=== PATIENT | female | born 1985 | race Caucasian/White ===

== ENCOUNTER 2016-06-24 09:44 | Emergency (ER) | payer MEDICARE, MEDICAID ==
[~2016-06-24] VITALS: Ht 157.5 cm; Wt 106.6 kg
[~2016-06-24 09:44] MED LIST: ACHD5005 PO; ALBU17AE3 INH; AMIT50TA3 PO; ARIP15TA PO; ARIP20TA PO; ASP81TEC PO; ASPI325T32 PO; BCP; BENADRYL; BIRTH CONTORL; BSP5T PO; BUPR150T7; BUPR300T51; BUTA-234 PO; BUTA1TAB46 PO; CEFP500T4 PO; CEPH500C PO; CETI-156 PO; CETI10TA17 PO; CHOL2000 PO; CIPR500T78 PO; CLIN150C17 PO; CLIN300C3 PO; CLN150C PO; CPR500T PO; CREON PO; CYCL10TA9 PO; DIPH25CA79 PO; DIPH50CA PO; DIPH50CA44 PO; DOCU100T7; DULO30CA; DULO30CA PO; ENAL20TA PO; ESTR1TAB24 PO; ESTR1TAB27 PO; ESTR2TAB PO; ESTR42.52 VG; ESTR50GE TD; FAMO-119 PO; FAMO20TA5 PO; FLUO10CA19 PO; FLUO20CA25 PO; FLUO20TA28 PO; FLUO40CA PO; FLUO40CA12 PO; HYDR-2856 PO; HYDR-34 PO; HYDR-3583 PO; HYDR-3729 PO; HYDR-3812 PO; HYDR-3816 PO; HYDR-3857 PO; HYDR-700 PO; HYDR-707 PO; HYDR1CAP2 PO; HYDR1TAB PO; HYDR25CA92 GT; HYOS0.1216 PO; IBP800T PO; IBUP-1780 PO; IBUP800T26 PO; IBUPROFEN; LEVO500T69 PO; LIPA1CAP2 PO; LIPA1CAP70 PO; MECL-124 PO; METO-354 PO; METO25TA4 PO; METR500T21 PO; MIRT15TA6 PO; MTF500T PO; NAPR-243 PO; NAPR-689 PO; NECON PO; NF-ESOM40C PO; NITR-65 PO; NITR100C3 PO; OMEP40CA36 PO; ONDA8TAB13 PO; ONDA8TAB9 PO; ONDAN4ODT PO; ONDN4T PO; OXYC-109 PO; OXYC-309 PO; PANT20TA2 PO; PARO20TA57 PO; PHEN100T26 PO; PHEN200T27 PO; PHEN37.555 PO; PRAV40TA; PRAV40TA2 PO; PRAZ2CAP2; PRAZ2CAP2 PO; PRM25T PO; PROM25SU10 PR; ROPI0.256 PO; ROPI2TAB4; ROPI2TAB4 PO; SCOP1PAT TD; SERT50TA PO; SIMV5TAB6 PO; SPIR100T28 PO; SRTR100T PO; SULF1TAB35 PO; SULF1TAB38 PO; TIZA2CAP9 PO; TIZA4CAP6 PO; TRAM-21 PO; TRAM50TA2 PO; TRAZ150T42; TRAZ150T42 PO; TRM50T PO; VICODIN; VORT10TA PO; ZIPR60CA6; ZOVIA; [UNRECOGNIZED DRUG - OTHER]; [UNRECOGNIZED DRUG - OTHER] PO; [UNRECOGNIZED DRUG - OTHER] PO; birth control pill; thyroid medication PO
--- OUTSIDE RECORDS SUMMARY | 2016-06-24 09:50 | XMS REPORT | Continuity of Care Document ---
Author Author [facility] Organization [facility] Address Unknown Phone Unavailable Care Team Providers Care Service Cashier Name Role Phone Mary Whittington PCP [phone] Source Comments Some departments are not documenting in the electronic medical record. If you do not see the information that you expected, contact Release of Information in the Health Information Management department at [phone] for further assistance in locating additional records.[facility] Active Allergies and Adverse Reactions Allergen Noted Date Severity Reactions Comments Demerol (Pf) 09/20/2011 UNKNOWN Fentanyl 09/20/2011 UNKNOWN Penicillins 09/20/2011 UNKNOWN Current Medications Prescription Sig. Disp. Refills Start End Date Status Date hydrocodone-acetaminophen Take 1 Tab by mouth at Active (NORCO) 5-325 mg per bedtime daily. tablet rOPINIRole (REQUIP) 2 mg Take 2 mg by mouth at Active tablet bedtime daily. vortioxetine (BRINTELLIX) Take 10 mg by mouth Active 10 mg tab daily. DIPHENHYDRAMINE HCL Take by mouth as Needed. Active (BENADRYL ALLERGY PO) pravastatin (PRAVACHOL) Take 40 mg by mouth Active 40 mg tablet daily. estradiol (ESTRACE) 1 mg Take 1 mg by mouth daily. Active tablet busPIRone (BUSPAR) 5 mg Take 5 mg by mouth three Active tablet times daily. scopolamine Apply 1 Patch to top of 30 Patch 1 11/26/19 Active (TRANSDERM-SCOP) 1.5 mg skin as directed every 72 15 patch hours. Do not use more than one patch in 72 hours. ondansetron (ZOFRAN) 4 mg Take 1 Tab by mouth three 60 Tab 1 01/21/20 Active tablet times daily as needed for 15 Nausea. gaoata-rcmbmpxy-jrovqvz Take 80,000 Units by 240 Cap 6 02/01/20 Active (ZENPEP) 40,000-136,000- mouth three times daily 15 218,000 unit cpDR with meals. (take 2 caps with meals, 1 cap with snacks. prazosin (MINIPRESS) 2 mg Take 2 mg by mouth at Active capsule bedtime daily. ibuprofen (MOTRIN) 800 mg Take 800 mg by mouth Active tablet every 6 hours as needed for Pain. VIT Take by mouth. Active W-CA,FE,FA(<1 MG) ( VITAMIN PO) other medication 1 Dose daily. Active Indications: One Source hair and nail vitamin omeprazole DR(+) Take 1 Cap by mouth 90 Cap 1 02/04/20 Active (PRILOSEC) 40 mg capsule daily. Take 30 minutes 15 before morning meal. traMADol (ULTRAM) 50 mg Take 1 Tab by mouth twice 60 Tab 1 07/18/19 Active tablet daily. 16 ondansetron (ZOFRAN ODT) Take 1 Tab by mouth every 60 Tab 0 09/14/19 Active 8 mg rapid dissolve 8 hours as needed for 16 tablet Nausea. Needs GI office visit for any additional refills. Active Problems Problem Noted Date 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 06/24/2013 Overview: S/P HOLLAND, BSO 11/27 Depression 06/24/2013 S/P cholecystectomy 06/24/2013 Overview: 2007 S/P appendectomy 06/24/2013 Overview: November 2012 Pancreatitis 10/23/2011 Social History Tobacco Use Types Packs/Day Years Used Date Never Smoker Alcohol Use Drinks/Week oz/Week Comments Yes Does not consume alcohol in excess. Last Filed Vital Signs Vital Sign Reading Time Taken Blood Pressure 113/74 02/03/2015 3:19 PM CDT Pulse 71 02/03/2015 3:19 PM CDT Temperature 36.2 C (97.1 F) 02/03/2015 3:19 PM CDT Respiratory Rate 17 08/26/2014 10:12 AM CDT Height 1.575 m (5' 2") 02/03/2015 3:19 PM CDT Weight 112.22 kg (247 lb 6.4 oz) 02/03/2015 3:19 PM CDT Body Mass Index 45.24 02/03/2015 3:19 PM CDT Oxygen Saturation - - Plan of Care Health Maintenance Due Date Last Done Comments Physical (Comprehensive) 1991 Exam Pertussis Vaccine 1995 Tetanus Vaccine 2001 Cervical Cancer Screening 2005 Influenza Vaccine 02/16/2016 Results from Last 3 Months Not on file
--- NOTE | 2016-06-24 10:52 | ED Cough/URI ---
General Chief Complaint: Cough/Cold/Flu Symptoms Stated Complaint: SORE THROAT/COUGH/GREEN SPUTUM/DIZZY Nursing Triage Note: PT C/O COUGH/CONGESTION X 3 WEEKS. Source: patient Exam Limitations: no limitations History of Present Illness Time seen by provider: 10:47 Initial Comments This is a 31-year-old asthmatic female presents with complaint of persistent cough for last 3 weeks. Patient has tried steroids with some improvement briefly. She was told to discontinue her albuterol nebulized treatments. The patient is currently not taking an antibiotic. Patient denies fever or chill, productive cough, headache or stiff neck, or history of recurrent pneumonia in the past. Allergies and Home Medications Allergies Coded Allergies: fentanyl (Verified Allergy, Unknown, 05/23/16) meperidine (Verified Allergy, Unknown, 05/23/16) penicillin G (Verified Allergy, Unknown, 05/23/16) Home Medications Diphenhydramine HCl 25 Mg Capsule 25-50 MG PO Q6H PRN PRN ALLERGIES (Reported) Estradiol 2 Mg Tablet 3 MG PO HS (Reported) TAKES 1 & 1/2 (2MG) TABLETS Fluoxetine HCl 20 Mg Capsule 60 MG PO HS (Reported) TAKES 3 (20MG) CAPSULES Hydrocodone/Acetaminophen 1 Each Tablet #30 1-2 EACH PO Q4H Prescribed by: JOHN PATTON on 05/30/16 0927 Ibuprofen 800 Mg Tablet 800 MG PO Q8H PRN PRN PAIN (Reported) Ondansetron 8 Mg Tab.rapdis 8 MG PO Q8H PRN PRN NAUSEA (Reported) Ropinirole HCl 2 Mg Tablet 2 MG PO HS (Reported) Constitutional: No chills, No fever EENTM: throat painNo ear pain Respiratory: see HPI cough Cardiovascular: No chest pain Gastrointestinal: No constipation, No diarrhea, No vomiting Genitourinary: No dysuria, No frequency Musculoskeletal: No back pain Skin: No rash Psychiatric/Neurological: No Symptoms Reported Hematologic/Lymphatic: No Symptoms Reported Past Mefyxjl-Mevsnw-Ejlnhp Hx Patient Social History Alcohol Use: Denies Use Recreational Drug Use: No Smoking Status: Never a Smoker Recent Foreign Travel: No Contact w/Someone Who Travel: No Recent Infectious Disease Expo: No Recent Hopitalizations: Yes (DECEMBER 2015-[facility]APH INFECTION) Physical Abuse Screen: No Sexual Abuse: No Immunizations Up To Date Tetanus Booster (TDap): Unknown Date of Pneumonia Vaccine: May 17, 2012 Date of Influenza Vaccine: Jul 03, 2012 Seasonal Allergies Seasonal Allergies: Yes (MILD) Surgeries HX Surgeries: Yes (R KNEE SCOPE X4 L X2, NASAL FX, EGD/COLONOSCOPY, COCCYX REMOVAL,) Surgeries: Abdominal, Appendectomy, Gallbladder, 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, Orthopedic, Tonsillectomy Respiratory Hx Respiratory Disorders: Yes (HASNT USED INHALER IN 4YRS) Respiratory Disorders: Asthma Cardiovascular Hx Cardiac Disorders: No Neurological Hx Neurological Disorders: Yes (restless leg syndrome) Neurological Disorders: Headaches /Migraines 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 System Hx 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: Yes (HX ENDOMETRIOSIS ) Sexually Transmitted Disease: No HIV/AIDS: No 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, 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 Genitourinary Hx Genitourinary Disorders: Yes Genitourinary Disorders: UTI-Chronic Gastrointestinal Hx Gastrointestinal Disorders: Yes (ENLARGED LIVER) Gastrointestinal Disorders: Pancreatitis, Polyps Musculoskeletal Hx Musculoskeletal Disorders: Yes (COCCYX-REPAIRED, MAY HAVE SIGNS OF ARTHRITIS ) Musculoskeletal Disorders: Chronic Back Pain Endocrine Hx Endocrine Disorders: No HEENT HX ENT Disorders: No Loss of Vision: Denies Hearing Impairment: Denies Cancer Hx Cancer: No Psychosocial Hx Psychiatric Problems: Yes Behavioral Health Disorders: Anxiety, Depression Integumentary HX Skin/Integumentary Disorder: Yes (RASH ON BACK) Skin/Integumentary Disorders: Herpes Blood Transfusions Hx Blood Disorders: No Adverse Reaction to a Blood Tr: No Reviewed Nursing Assessment Reviewed/Agree w Nursing PMH: Yes Family Medical History Significant Family History: Cancer, Diabetes, Hypertension Family Medial History: Cardiovascular disease 19 FATHER Completed stroke 19 FATHER Diabetes mellitus 19 FATHER Hypercholesterolemia 19 FATHER 19 MOTHER Hypertension 19 FATHER 19 MOTHER Neoplasm 19 MOTHER Psychosocial problem 19 FATHER 19 MOTHER Physical Exam Vital Signs Vital Sign - Last 12Hours Capillary Refill : Less Than 3 Seconds General Appearance: WD/WN Eyes: Bilateral Eye Normal Inspection HEENT: normal ENT inspection Neck: full range of motion supple normal inspection Respiratory: lungs clear normal breath sounds other (there was a persistent nonproductive cough noted on exam) Cardiovascular: regular rate, rhythm no murmur Gastrointestinal: normal bowel sounds non tender soft Extremities: normal inspection Neurologic/Psychiatric: no motor/sensory deficits alert normal mood/affect Skin: normal color warm/dry Progress/Results/Core Measures Results/Orders Lab Results Laboratory Tests Test 06/24/16 10:33 Range/Units Group A Streptococcus Screen NEGATIVE NEGATIVE My Orders Orders-ADRIÁN PARKS MD Rapid Strep A Screen (06/24/16 10:29) Vital Signs/I&O Vital Sign - Last 12Hours 06/24/16 06/24/16 09:55 09:55 Temp 98.9 Pulse 95 Resp 20 B/P 124/74 Pulse Ox 97 O2 Delivery Room Air Room Air Blood Pressure Mean: 91 Progress Note : Time: 10:52 Progress Note The patient's strep screen was negative. We discussed treatment for outpatient which will include Tussionex, prednisone, resumption of her albuterol nebulized treatments at home, and a Z-[place]. I asked that the patient follow up with her caregiver trace tomorrow and to return to the emergency department she had any further problems or questions. Departure Impression Impression: Primary Impression: Upper respiratory infection Qualified Code: J06.9 - Acute upper respiratory infection, unspecified Disposition: HOME, SELF-CARE Condition: Unchanged Departure-Patient Inst. Decision time for Depature: 10:55 Referrals: CARMEN GIBBS MD (PCP/Family) Primary Care Physician Patient Instructions: Acute Bronchitis, Adult (DC) Add. Discharge Instructions: Tussionex, Zithromax, prednisone, and albuterol nebulized treatments at home. Close follow-up with her caregiver choice tomorrow. Return of any problems. All discharge instructions reviewed with patient and/or family. Voiced understanding. ADRIÁN PARKS MD Jun 24, 2016 10:52
[2016-06-24 11:03] VITALS: BP 124/74
[2016-10-26] MEDS ORDERED: CIPR500T4 PO (14:33)
[2016-10-26] MEDS ORDERED: METR500T21 PO (14:33)
== END 2016-06-24 11:04 | disposition home or self-care (01) ==
LOC: EDUNIT# 09:44 → ER 09:45
DX: J06.9 Acute upper respiratory infection, unspecified (principal)
CPT/HCPCS: 87430; 99283

== ENCOUNTER 2016-08-05 10:58 | Emergency (ER) | payer MEDICARE, MEDICAID ==
[~2016-08-05] VITALS: Ht 157.5 cm; Wt 104.3 kg
--- OUTSIDE RECORDS SUMMARY | 2016-08-05 11:05 | XMS REPORT | Continuity of Care Document ---
Author Author [facility] Organization [facility] Address Unknown Phone Unavailable Care Team Providers Care Pool Hand Name Role Phone Mary Whittington PCP [phone] Source Comments Some departments are not documenting in the electronic medical record. If you do not see the information that you expected, contact Release of Information in the Health Information Management department at [phone] for further assistance in locating additional records.[facility] Active Allergies and Adverse Reactions Allergen Noted [...] times daily as needed for 15 Nausea. exzfpu-hlqbnsap-woowbwv Take 80,000 Units by 240 Cap 6 [...] Active tablet daily. 16 ondansetron (ZOFRAN ODT) DISSOLVE ONE TABLET IN 60 Tab 0 08/01/19 Active 8 mg rapid dissolve MOUTH EVERY 8 HOURS 17 tablet NEEDED FOR NAUSEA, NEED GI OFFICE VISIT FOR ANY ADDITIONAL REFILLS ondansetron (ZOFRAN ODT) Take 1 Tab by mouth every 60 Tab 0 09/13/20 07/31/19 Discontin 8 mg rapid dissolve 8 hours as needed for 16 17 ued tablet Nausea. Needs GI office visit for any additional refills. Active Problems Problem Noted Date 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 06/24/2013 Overview: S/P FREDI LINO 11/27 Depression 06/24/2013 S/P cholecystectomy 06/24/2013 Overview: 2007 S/P appendectomy 06/24/2013 Overview: November 2012 Pancreatitis 10/23/2011 Most Recent Encounters Date Type Specialty Providers Description 07/31/2016 Refill Gastroenterology Jessica Valera ARNP Social History Tobacco Use Types Packs/Day Years [...]
--- NOTE | 2016-08-05 11:33 | ED Abdominal Pain ---
General Chief Complaint: Abdominal/GI Problems Stated Complaint: ABD PAIN TO BACK Nursing Triage Note: PT TO ED 5 W/ C/O UPPER ABD PAIN ONSET YESTERDAY, WORSE TODAY. ALSO C/O N/V. REPORTS "PANCREAS PROBLEMS". Sepsis Screen: No Definite Risk Source of Information: Patient Exam Limitations: No Limitations History of Present Illness Time Seen By Provider: 11:33 Initial Comments 31-year-old female patient presents to the emergency department complains of upper abdominal pain, nausea, and vomiting beginning yesterday. Patient states she has a history of pancreatitis and thinks this is causing her symptoms. Timing/Duration: 12-24 Hours, Constant Severity/Quality: Aching Location: Other (generalized upper abdomen) Radiation: Back Activities at Onset: None Modifying Factors: Worsens With Eating, Worsens With Palpation Allergies and Home Medications Allergies Coded Allergies: fentanyl (Verified Allergy, Unknown, 05/23/16) meperidine (Verified Allergy, Unknown, 05/23/16) penicillin G (Verified Allergy, Unknown, 05/23/16) Home Medications Diphenhydramine HCl 25 Mg Capsule 25-50 MG PO Q6H PRN PRN ALLERGIES (Reported) Estradiol 2 Mg Tablet 3 MG PO HS (Reported) TAKES 1 & 1/2 (2MG) TABLETS Fluoxetine HCl 20 Mg Capsule 60 MG PO HS (Reported) TAKES 3 (20MG) CAPSULES Hydrocodone/Acetaminophen 1 Each Tablet #30 1-2 EACH PO Q4H Prescribed by: JOHN PATTON on 05/30/16 0927 Ibuprofen 800 Mg Tablet 800 MG PO Q8H PRN PRN PAIN (Reported) Ondansetron 8 Mg Tab.rapdis 8 MG PO Q8H PRN PRN NAUSEA (Reported) Promethazine HCl 25 Mg Tablet #10 25 MG PO Q6H PRN PRN NAUSEA/VOMITING Prescribed by: KIARA CALVERT on 08/05/16 1342 Ropinirole HCl 2 Mg Tablet 2 MG PO HS (Reported) Review of Systems Constitutional: No chills, No diaphoresis, No dizziness, No fever, malaise EENTM: No Symptoms Reported Respiratory: Denies Cough, Denies Shortness of Air Cardiovascular: Denies Chest Pain, Denies Lightheadedness, Denies Palpitations Gastrointestinal: See HPIDenies Abdomen Distended, Abdominal PainDenies Blood Streaked Stools, Denies Constipated, Denies Diarrhea, Denies Difficulty Swallowing, Nausea Poor Appetite Poor Fluid IntakeDenies Rectal Bleeding, Vomiting Genitourinary: Denies Burning, Denies Discharge, Denies Frequency, Denies Hematuria, Denies Pain Musculoskeletal: see HPI back pain Skin: no symptoms reported Psychiatric/Neurological: No Symptoms Reported All Other Systems Reviewed Negative Unless Noted: Yes (Negative excepted noted.) Past Wruhtzh-Axqqga-Aqznzy Hx Patient Social History Alcohol Use: Denies Use Recreational Drug Use: No Smoking Status: Never a Smoker Recent Foreign Travel: No Contact w/Someone Who Travel: No Recent Infectious Disease Expo: No Recent Hopitalizations: Yes (DECEMBER 2015-[facility] INFECTION) Immunizations Up To Date Tetanus Booster (TDap): Unknown Date of Pneumonia Vaccine: May 17, 2012 Date of Influenza Vaccine: Jul 03, 2012 Seasonal Allergies Seasonal Allergies: Yes (MILD) Surgeries HX Surgeries: Yes (R KNEE SCOPE X4 L X2, NASAL FX, EGD/COLONOSCOPY, COCCYX REMOVAL,) Surgeries: Abdominal, Adenoidectomy, Appendectomy, Gallbladder, 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, Orthopedic, Tonsillectomy Respiratory Hx Respiratory Disorders: Yes (HASNT USED INHALER IN 4YRS) Respiratory Disorders: Asthma Cardiovascular Hx Cardiac Disorders: No Neurological Hx Neurological Disorders: Yes (restless leg syndrome) Neurological Disorders: Headaches /Migraines 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 System Hx 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: Yes (HX ENDOMETRIOSIS ) Sexually Transmitted Disease: No HIV/AIDS: No 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, 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 Genitourinary Hx Genitourinary Disorders: Yes Genitourinary Disorders: UTI-Chronic Gastrointestinal Hx Gastrointestinal Disorders: Yes (ENLARGED LIVER) Gastrointestinal Disorders: Pancreatitis, Polyps Musculoskeletal Hx Musculoskeletal Disorders: Yes (COCCYX-REPAIRED, MAY HAVE SIGNS OF ARTHRITIS ) Musculoskeletal Disorders: Chronic Back Pain Endocrine Hx Endocrine Disorders: No HEENT HX ENT Disorders: No Loss of Vision: Denies Hearing Impairment: Denies Cancer Hx Cancer: No Psychosocial Hx Psychiatric Problems: Yes Behavioral Health Disorders: Anxiety, Depression Integumentary HX Skin/Integumentary Disorder: Yes (RASH ON BACK) Skin/Integumentary Disorders: Herpes Blood Transfusions Hx Blood Disorders: No Adverse Reaction to a Blood Tr: No Reviewed Nursing Assessment Reviewed/Agree w Nursing PMH: Yes Family Medical History Significant Family History: Cancer, Diabetes, Hypertension Family Medial History: Cardiovascular disease 19 FATHER Completed stroke 19 FATHER Diabetes mellitus 19 FATHER Hypercholesterolemia 19 FATHER 19 MOTHER Hypertension 19 FATHER 19 MOTHER Neoplasm 19 MOTHER Psychosocial problem 19 FATHER 19 MOTHER Physical Exam Vital Signs VS - Last 72 Hours, by Label 08/05/16 08/05/16 11:05 14:43 Temp 97.2 Pulse 80 75 Resp 18 20 B/P 147/87 Pulse Ox 99 99 O2 Delivery Room Air Capillary Refill : Less Than 3 Seconds General Appearance: WD/WN no apparent distress obese HEENT: PERRL/EOMI pharynx normal Neck: supple normal inspection Respiratory: lungs clear normal breath sounds no respiratory distress Cardiovascular: normal peripheral pulses regular rate, rhythm no edema no murmur Gastrointestinal: normal bowel sounds soft no organomegalyNo distended, guarding (generalized upper abdominal guarding)No rebound, tenderness ( generalized upper abdominal tenderness.) Extremities: no pedal edema normal capillary refill Back: normal inspection no CVA tenderness Neurologic/Psychiatric: alert oriented x 3 depressed affect Skin: normal color warm/dry Progress/Results/Core Measures Results/Orders Lab Results Laboratory Tests Test 08/05/16 12:40 08/05/16 13:15 Range/Units Alanine Aminotransferase (ALT/SGPT) 14 0-55 U/L Albumin 3.8 3.2-4.5 G/DL Alkaline Phosphatase 61 40-136 U/L Anion Gap 10 5-14 MMOL/L Aspartate Amino Transf (AST/SGOT) 20 5-34 U/L BUN/Creatinine Ratio 15 Basophils # (Auto) 0.0 0.0-0.1 10^3/uL Basophils (%) (Auto) 0 0-10 % Blood Urea Nitrogen 11 7-18 MG/DL C-Reactive Protein High Sensitivity 1.68 H 0.00-0.50 MG/DL Calcium Level 9.1 8.5-10.1 MG/DL Carbon Dioxide Level 25 21-32 MMOL/L Chloride Level 105 98-107 MMOL/L Creatinine 0.75 0.60-1.30 MG/DL Eosinophils # (Auto) 0.2 0.0-0.3 10^3/uL Eosinophils (%) (Auto) 2 0-10 % Estimat Glomerular Filtration Rate > 60 Glucose Level 83 70-105 MG/DL Hematocrit 38 35-52 % Hemoglobin 12.8 11.5-16.0 G/DL Lipase 26 8-78 U/L Lymphocytes # (Auto) 2.9 1.0-4.0 X 10^3 Lymphocytes (%) (Auto) 30 12-44 % Mean Corpuscular Hemoglobin 28 25-34 PG Mean Corpuscular Hemoglobin Concent 33 32-36 G/DL Mean Corpuscular Volume 85 80-99 FL Mean Platelet Volume 9.3 7.4-10.4 FL Monocytes # (Auto) 0.4 0.0-1.0 X 10^3 Monocytes (%) (Auto) 4 0-12 % Neutrophils # (Auto) 6.2 1.8-7.8 X 10^3 Neutrophils (%) (Auto) 64 42-75 % Platelet Count 301 130-400 10^3/uL Potassium Level 4.0 3.6-5.0 MMOL/L Red Blood Count 4.52 4.35-5.85 10^6/uL Red Cell Distribution Width 13.3 10.0-14.5 % Sodium Level 140 135-145 MMOL/L Total Bilirubin 0.4 0.1-1.0 MG/DL Total Protein 7.0 6.4-8.2 G/DL White Blood Count 9.6 4.3-11.0 10^3/uL Urine Bacteria LARGE H /HPF Urine Bilirubin NEGATIVE NEGATIVE Urine Casts NONE /LPF Urine Clarity CLEAR Urine Color YELLOW Urine Crystals NONE /LPF Urine Culture Indicated NO Urine Glucose (UA) NEGATIVE NEGATIVE Urine Ketones NEGATIVE NEGATIVE Urine Leukocyte Esterase NEGATIVE NEGATIVE Urine Mucus LARGE H /LPF Urine Nitrite NEGATIVE NEGATIVE Urine Protein 1+ H NEGATIVE Urine RBC NONE /HPF Urine RBC (Auto) NEGATIVE NEGATIVE Urine Specific [place] 1.025 H 1.016-1.022 Urine Squamous Epithelial Cells TNTC H /HPF Urine Urobilinogen NORMAL NORMAL MG/DL Urine WBC RARE /HPF Urine pH 5 5-9 My Orders Orders-KIARA CALVERT Saline Lock/Iv-Start (08/05/16 12:09) Cbc With Automated Diff (08/05/16 12:09) Comprehensive Metabolic Panel (08/05/16 12:09) Hs C Reactive Protein (08/05/16 12:09) Lipase (08/05/16 12:09) Ua Culture If Indicated (08/05/16 12:09) Ns Iv 1000 Ml (Sodium Chloride 0.9%) (08/05/16 12:09) Ondansetron Injection (Zofran Injectio (08/05/16 12:15) Famotidine Injection (Pepcid Injection) (08/05/16 12:09) Ketorolac Injection (Toradol Injection) (08/05/16 12:09) Ns Iv 1000 Ml (Sodium Chloride 0.9%) (08/05/16 13:22) Ondansetron Injection (Zofran Injectio (08/05/16 14:15) Medications Given in ED Current Medications Medications Dose Ordered Sig/Neal Route Start Time Stop Time Status Last Admin Dose Admin Ondansetron HCl 4 mg ONCE ONCE IVP 08/05/16 12:15 08/05/16 12:16 DC 08/05/16 12:43 4 MG Ondansetron HCl 4 mg ONCE ONCE IVP 08/05/16 14:15 08/05/16 14:16 DC 08/05/16 14:19 4 MG Sodium Chloride 1,000 ml @ 0 mls/hr Q0M ONCE IV 08/05/16 12:09 08/05/16 12:12 DC 08/05/16 12:42 1,000 MLS/HR Vital Signs/I&O Vital Sign - Last 12Hours 08/05/16 08/05/16 11:05 14:43 Temp 97.2 Pulse 80 75 Resp 18 20 B/P 147/87 Pulse Ox 99 99 O2 Delivery Room Air Blood Pressure Mean: 107 Departure Communication Progress Notes all laboratory findings discussed with the patient. Plan for discharge to home with oral Phenergan. Patient does have Zofran at home which she is instructed to use for nausea and vomiting as well. Patient instructed to follow-up with her family practitioner for recheck as an outpatient. All return precautions were discussed with the patient as described in the discharge instructions of this report. Patient voices understanding and agrees with the treatment plan. Impression Impression: Primary Impression: Abdominal pain Qualified Code: R10.10 - Upper abdominal pain, unspecified Additional Impression: Nausea & vomiting Qualified Code: R11.2 - Nausea with vomiting, unspecified Disposition: 01 HOME, SELF-CARE Condition: Improved Departure-Patient Inst. Decision time for Depature: 13:51 Referrals: CARMEN GIBBS MD (PCP/Family) Primary Care Physician Patient Instructions: Acute Abdomen (Belly Pain), Adult (DC), Nausea and Vomiting, Adult (DC) Add. Discharge Instructions: All discharge instructions reviewed with patient and/or family. Voiced understanding. medications as instructed. Continue usual home medications including Zofran. Drink plenty of fluids. Clear liquid diet until symptoms improve, then increase diet slowly to a low-fat, bland diet. Follow-up with your family practitioner for recheck. Return to the emergency department for worsened pain, fever, vomiting, vomiting blood, rectal bleeding, black stools, or any other concerns. Scripts Promethazine HCl (Promethazine Tablet)25 Mg [id number] Mg PO Q6H PRN NAUSEA/ VOMITING #10 TAB Ref 0 Prov:KIARA CALVERT 08/05/16 KIARA CALVERT Aug 05, 2016 11:33
[2016-08-05] MEDS ORDERED: NS IV 1000 ML 1,000 ML IV ONE ×2 (12:09→13:22)
[2016-08-05] MEDS ORDERED: KETOROLAC 30 MG/ML VIAL IVP STA (12:09)
[2016-08-05] MEDS ORDERED: FAMOTIDINE 20MG/2ML IV (PEPCID) IV STA (12:09)
[2016-08-05] MEDS ORDERED: ONDANSETRON 4 MG/2 ML (SDV) Z0FRAN IVP ONE ×2 (12:15→14:15)
[2016-08-05 12:54] LABS: BASOPHILS % (AUTO) 0 % (0-10); EOSINOPHILS # (AUTO) 0.2 10^3/uL (0.0-0.3); EOSINOPHILS % (AUTO) 2 % (0-10); LYMPHOCYTES # (AUTO) 2.9 X 10^3 (1.0-4.0); LYMPHOCYTES % (AUTO) 30 % (12-44); MEAN CORPUSCULAR HEMOGLOBIN 28 PG (25-34); MEAN CORPUSCULAR HGB CONC 33 G/DL (32-36); MEAN CORPUSCULAR VOLUME 85 FL (80-99); MEAN PLATELET VOLUME 9.3 FL (7.4-10.4); MONOCYTES # (AUTO) 0.4 X 10^3 (0.0-1.0); MONOCYTES % (AUTO) 4 % (0-12); NEUTROPHILS # (AUTO) 6.2 X 10^3 (1.8-7.8); NEUTROPHILS % (AUTO) 64 % (42-75); PLATELET COUNT 301 10^3/uL (130-400); RED BLOOD COUNT 4.52 10^6/uL (4.35-5.85); RED CELL DISTRIBUTION WIDTH 13.3 % (10.0-14.5); WHITE BLOOD COUNT 9.6 10^3/uL (4.3-11.0)
[2016-08-05 13:12] LABS: ALANINE AMINOTRANSFERASE 14 U/L (0-55); ALBUMIN 3.8 G/DL (3.2-4.5); ANION GAP 10 MMOL/L (5-14); ASPARTATE AMINO TRANSFERASE 20 U/L (5-34); BILIRUBIN,TOTAL 0.4 MG/DL (0.1-1.0); BLOOD UREA NITROGEN 11 MG/DL (7-18); BUN/CREATININE RATIO 15; CALCIUM 9.1 MG/DL (8.5-10.1); CARBON DIOXIDE 25 MMOL/L (21-32); CHLORIDE 105 MMOL/L (98-107); CREATININE SERUM 0.75 MG/DL (0.60-1.30); GFR ESTIMATED > 60; GLUCOSE 83 MG/DL (70-105); LIPASE 26 U/L (8-78); SODIUM 140 MMOL/L (135-145); hs C REACTIVE PROTEIN 1.68 MG/DL (0.00-0.50)
[2016-08-05 13:29] LABS: BILIRUBIN,URINE NEGATIVE (NEGATIVE); KETONES,URINE NEGATIVE (NEGATIVE); LEUKOCYTE ESTERASE ,URINE NEGATIVE (NEGATIVE); NITRITE,URINE NEGATIVE (NEGATIVE); PH,URINE 5 (5-9); PROTEIN,URINE 1+ (NEGATIVE); UROBILINOGEN,URINE NORMAL (NORMAL)
[2016-08-05] MEDS ORDERED: PROM25TA14 PO (13:42)
[2016-08-05 13:43] LABS: SQUAMOUS EPITHELIAL CELL,UR TNTC /HPF; WBC,URINE RARE /HPF
[2016-08-05 14:43] VITALS: BP 136/83
[2016-10-26] MEDS ORDERED: METR500T21 PO (14:33)
[2016-10-26] MEDS ORDERED: CIPR500T4 PO (14:33)
== END 2016-08-05 14:43 | disposition home or self-care (01) ==
LOC: EDUNIT# 10:58 → ER 10:59
DX: R10.10 Upper abdominal pain, unspecified (principal); R11.2 Nausea with vomiting, unspecified
CPT/HCPCS: 36415; 80053; 81000; 83690; 85025; 86141; 96361; 96374; 96375; 96376

== ENCOUNTER → 2016-08-16 | Outpatient (CLI) | payer MEDICARE, MEDICAID ==
[~2016-08-16] MED LIST changes: +CIPR500T4 PO; +PROM25TA14 PO
--- OUTSIDE RECORDS SUMMARY | 2016-08-16 12:25 | XMS REPORT | Continuity of Care Document ---
Author Author [facility] Organization [facility] Address Unknown Phone Unavailable Care Team Providers Care Garde Manager Name Role Phone Mary Whittington PCP [phone] Source Comments Some departments are not documenting in the electronic medical record. If you do not see the information that you expected, contact Release of Information in the Health Information Management department at [phone] for further assistance in locating additional records.[facility] Active Allergies and Adverse Reactions Allergen Noted [...] times daily as needed for 15 Nausea. uyisjh-laswrvuo-ichmzqs Take 80,000 Units by 240 Cap 6 [...] Oxygen Saturation - - Plan of Care Date Type Specialty Providers Description 09/10/2016 Appointment Gastroenterology Randy Nunez MD [address] [facility] [address] [place] [address] [phone] (Fax) Health Maintenance Due Date Last Done Comments Physical (Comprehensive) 1991 Exam Pertussis Vaccine 1995 Tetanus Vaccine 2001 Cervical Cancer Screening 2005 Influenza Vaccine 02/16/2016 Results from Last 3 Months Not on file
--- NOTE | 2016-08-16 18:27 | Diagnostic Imaging Report ---
Ultrasound of the neck. INDICATION: Neck mass. FINDINGS: There is a 0.9 x 0.8 x 0.9 cm hypoechoic lesion with internal vascularity seen at the area of the palpable nodule. This is located in the midline superior to the thyroid gland. Etiology is uncertain. IMPRESSION: A 0.9 cm solid nodule with internal vascularity at the palpable area. In the appropriate clinical setting, an inflammatory or infectious reactive lymph node could be considered. If this nodule persists, then neoplastic etiology is possible and further evaluation with enhanced CT scan of the neck. Dictated by: Dictated on workstation # [id number]
== END ==
LOC: RAD 12:21
PROVIDERS: ATTEND Family Medicine
DX: R04.2 Hemoptysis (principal); R22.1 Localized swelling, mass and lump, neck
CPT/HCPCS: 71250; 76536

== ENCOUNTER → 2016-08-28 | Outpatient (CLI) | payer MEDICARE, MEDICAID ==
[~2016-08-28] MED LIST changes: +IOHEXOL 350 MG/ML 100 ML (OMNIPAQUE 350) VIAL IV ONE; +NS 100 ML (IVPB) BAG IV ONE
--- OUTSIDE RECORDS SUMMARY | 2016-08-28 08:53 | XMS REPORT | Continuity of Care Document ---
Author Author [facility] Organization [facility] Address Unknown Phone Unavailable Care Team Providers Care Cut Out Marker Name Role Phone Mary Whittington PCP [phone] Source Comments Some departments are not documenting in the electronic medical record. If you do not see the information that you expected, contact Release of Information in the Health Information Management department at [phone] for further assistance in locating additional records.[facility] Active Allergies and Adverse Reactions Allergen Noted [...] times daily as needed for 15 Nausea. egvgfn-[id number] Take 80,000 Units by 240 Cap 6 [...] Problem Noted Date 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 06/24/2013 Overview: S/P FRDEI LINO 11/27 Depression 06/24/2013 S/P cholecystectomy 06/24/2013 [...] 09/10/2016 Appointment Gastroenterology Randy Nunez MD [address] [facility] [address] [place] [address] [phone] (Fax) Health Maintenance Due Date Last Done Comments Physical (Comprehensive) 1991 Exam Pertussis Vaccine 1995 Tetanus Vaccine 2001 Cervical Cancer Screening 2005 Influenza Vaccine 02/16/2016 Results from Last 3 Months Not on file
--- NOTE | 2016-08-28 10:25 | Diagnostic Imaging Report ---
CLINICAL INDICATION: Patient with swelling of the anterior throat area, difficulty swallowing. Marker placed in the region. There is a lesion on the ultrasound soft tissue involving the palpable area of concern. EXAM: Axial CT scan of the neck soft tissue performed with 85 cc of Omnipaque 350 IV contrast. Coronal reformatted images are created. COMPARISON: Ultrasound of the neck soft tissue dated 08/16/2016. CT scan of the cervical spine without IV contrast dated 09/04/2014. FINDINGS: There is an 8mm x 8mm x 8mm (AP x Trans x CC) nodular area seen in the right level 1A region beneath the platysma muscle. There is minimal amount of adjacent fat stranding seen. This likely correlates to the nodular area of concern on the ultrasound neck soft tissue. This likely represents an inflamed lymph node. There is also a 2 mm nodular area which is just anterior and at the same level of the larger nodular area concerning for lymph node. There is mild adjacent fat stranding involving the anterior aspect of the neck as well. There is localized thickening of the skin involving the left of midline anterior neck soft tissue also seen at the level of these areas concerning for lymph nodes. There are lymph nodes seen in the bilateral level 1B regions as well. The largest is seen on the left side posteriorly which measures 14 mm x 6 mm. There is no other neck soft tissue abnormality seen. The nasopharynx, oropharynx, hypopharynx, and laryngeal structures show no significant abnormality. The visualized portion of the sublingual space and tongue base are unremarkable. Of note, dental streak artifact obscures portions of the oral cavity. The bilateral salivary glands are unremarkable with no stones, mass or dilated ducts seen. The thyroid gland is unremarkable. The visualized upper lung west show mild suspected atelectasis. Remainder of the neck soft tissue structures are unremarkable. Visualized intracranial structures are unremarkable. Bones show no significant abnormality. IMPRESSION: 1: There are two nodular areas in the right level 1B region with the largest measuring 8 mm which likely correlates to a lymph nodes with adjacent fat stranding/inflammation. This likely correlates to the abnormality seen on the comparison ultrasound exam. There is also mildly prominent bilateral level IB lymph nodes. There is note of a localized area of skin soft tissue thickening in the left of midline anterior neck soft tissue with adjacent fat stranding. This area of skin thickening may be related to infectious or inflammatory process or an insect bite. Skin neoplasm also should be excluded. Clinical evaluation is suggested. The lymph nodes in the submental/submandibular (Level 1A/1B) are suspected to be reactive unless this skin lesion has been found to represent a neoplasm. 2: The remainder of this exam is unremarkable. Dictated by: Dictated on workstation # [id number]
== END ==
LOC: RAD 08:49
PROVIDERS: ATTEND Family Medicine
DX: R22.1 Localized swelling, mass and lump, neck (principal)
CPT/HCPCS: 70491

== ENCOUNTER 2016-10-11 15:49 | Emergency (ER) | payer MEDICARE, MEDICAID ==
[~2016-10-11] VITALS: Ht 157.5 cm; Wt 108.9 kg
[~2016-10-11 15:49] MED LIST changes: -CIPR500T4 PO; -IOHEXOL 350 MG/ML 100 ML (OMNIPAQUE 350) VIAL IV ONE; -NS 100 ML (IVPB) BAG IV ONE
--- NOTE | 2016-10-11 17:17 | ED Cough/URI ---
General Chief Complaint: Respiratory Problems Stated Complaint: SOA,ABD PAIN WHEN BREATHING, NUMBNESS IN ARMS Nursing Triage Note: pt ambulated to ed room 05. pt complains of pain when breathing, and left arm continually falls asleep. Pt states pain in chest and back area. Deep breaths make her hurt worse. Pt states she coughs frequently and has yellow/green film come up. Pt states she vomited saturday night. History of Present Illness Time seen by provider: 16:50 Initial Comments Evaluation for chest congestion, left upper quadrant pain, and left arm numbness. Patient reports symptoms began 3-4 days ago and are not improving. She has long-standing history of chronic pancreatitis. Timing/Duration: week Severity/Quality: productive cough Prior Episodes/Possible Cause: frequent episodes, chronic episodes Allergies and Home Medications Allergies Coded Allergies: fentanyl (Verified Allergy, Unknown, 05/23/16) meperidine (Verified Allergy, Unknown, 05/23/16) penicillin G (Verified Allergy, Unknown, 05/23/16) Home Medications Diphenhydramine HCl 25 Mg Capsule, 25-50 MG PO Q6H PRN for ALLERGIES, (Reported) Estradiol 2 Mg Tablet, 3 MG PO HS, (Reported) TAKES 1 & 1/2 (2MG) TABLETS Fluoxetine HCl 20 Mg Capsule, 60 MG PO HS, (Reported) TAKES 3 (20MG) CAPSULES Hydrocodone/Acetaminophen 1 Each Tablet, 1-2 EACH PO Q4H, #30 Prescribed by: JOHN PATTON on 05/30/16 0927 Ibuprofen 800 Mg Tablet, 800 MG PO Q8H PRN for PAIN, (Reported) Ondansetron 8 Mg Tab.rapdis, 8 MG PO Q8H PRN for NAUSEA, (Reported) Promethazine HCl 25 Mg Tablet, 25 MG PO Q6H PRN for NAUSEA/VOMITING, #10 Ref 0 Prescribed by: KIARA CALVERT on 08/05/16 1342 Ropinirole HCl 2 Mg Tablet, 2 MG PO HS, (Reported) Constitutional: no symptoms reported, see HPI EENTM: no symptoms reported, see HPI Respiratory: see HPI, cough Cardiovascular: no symptoms reported, see HPI Gastrointestinal: see HPI, heartburn Genitourinary: no symptoms reported, see HPI Musculoskeletal: see HPI, other (numbness left upper extremity) Skin: no symptoms reported, see HPI Psychiatric/Neurological: No Symptoms Reported, See HPI Hematologic/Lymphatic: No Symptoms Reported, See HPI Immunological/Allergic: no symptoms reported, see HPI All Other Systems Reviewed Negative Unless Noted: Yes Past Gkajhal-Ogvbqw-Evrhee Hx Patient Social History Alcohol Use: Denies Use Recreational Drug Use: No Smoking Status: Never a Smoker 2nd Hand Smoke Exposure: No Recent Foreign Travel: No Contact w/Someone Who Travel: No Recent Infectious Disease Expo: No Recent Hopitalizations: Yes (DECEMBER 2015-[facility] INFECTION) Immunizations Up To Date Tetanus Booster (TDap): Unknown Date of Pneumonia Vaccine: May 17, 2012 Date of Influenza Vaccine: Jul 03, 2012 Seasonal Allergies Seasonal Allergies: Yes (MILD) Surgeries HX Surgeries: Yes (R KNEE SCOPE X4 L X2, NASAL FX, EGD/COLONOSCOPY, COCCYX REMOVAL,) Surgeries: Abdominal, Adenoidectomy, Appendectomy, Gallbladder, 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, Orthopedic, Tonsillectomy Respiratory Hx Respiratory Disorders: Yes (HASNT USED INHALER IN 4YRS) Respiratory Disorders: Asthma Cardiovascular Hx Cardiac Disorders: No Neurological Hx Neurological Disorders: Yes (restless leg syndrome) Neurological Disorders: Headaches /Migraines 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 System Hx 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: Yes (HX ENDOMETRIOSIS ) Sexually Transmitted Disease: No HIV/AIDS: No 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, 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 Genitourinary Hx Genitourinary Disorders: Yes Genitourinary Disorders: UTI-Chronic Gastrointestinal Hx Gastrointestinal Disorders: Yes (ENLARGED LIVER) Gastrointestinal Disorders: Pancreatitis, Polyps Musculoskeletal Hx Musculoskeletal Disorders: Yes (COCCYX-REPAIRED, MAY HAVE SIGNS OF ARTHRITIS ) Musculoskeletal Disorders: Chronic Back Pain Endocrine Hx Endocrine Disorders: No HEENT HX ENT Disorders: No Loss of Vision: Denies Hearing Impairment: Denies Cancer Hx Cancer: No Psychosocial Hx Psychiatric Problems: Yes Behavioral Health Disorders: Anxiety, Depression Integumentary HX Skin/Integumentary Disorder: Yes (RASH ON BACK) Skin/Integumentary Disorders: Herpes Blood Transfusions Hx Blood Disorders: No Adverse Reaction to a Blood Tr: No Reviewed Nursing Assessment Reviewed/Agree w Nursing PMH: Yes Family Medical History Significant Family History: Cancer, Diabetes, Hypertension Family Medial History: Cardiovascular disease 19 FATHER Completed stroke 19 FATHER Diabetes mellitus 19 FATHER Hypercholesterolemia 19 FATHER 19 MOTHER Hypertension 19 FATHER 19 MOTHER Neoplasm 19 MOTHER Psychosocial problem 19 FATHER 19 MOTHER Physical Exam Vital Signs Vital Sign - Last 12Hours 10/11/16 16:08 Temp 96.7 Pulse 72 Resp 16 B/P (MAP) 127/82 Pulse Ox 96 O2 Delivery Room Air Capillary Refill : Less Than 3 Seconds General Appearance: WD/WN, no apparent distress HEENT: PERRL/EOMI, normal ENT inspection, TMs normal, pharynx normal Neck: non-tender, full range of motion, supple, normal inspection, other ( power V/V C5-T1. Sensation to light touch intact bilateral upper extremities. Negative Phalen and Tinel sign, left upper extremity. 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 ) Respiratory: chest non-tender, lungs clear, normal breath sounds Cardiovascular: normal peripheral pulses, regular rate, rhythm, no murmur Gastrointestinal: normal bowel sounds, non tender, soft, no organomegaly, no pulsatile mass Extremities: normal range of motion, non-tender, normal inspection, no calf tenderness, normal capillary refill Neurologic/Psychiatric: no motor/sensory deficits, alert, normal mood/affect, oriented x 3 Skin: normal color, warm/dry Lymphatic: no adenopathy Progress/Results/Core Measures Results/Orders Lab Results Laboratory Tests Test 10/11/16 17:15 Range/Units White Blood Count 10.1 4.3-11.0 10^3/uL Red Blood Count 4.58 4.35-5.85 10^6/uL Hemoglobin 12.8 11.5-16.0 G/DL Hematocrit 39 35-52 % Mean Corpuscular Volume 85 80-99 FL Mean Corpuscular Hemoglobin 28 25-34 PG Mean Corpuscular Hemoglobin Concent 33 32-36 G/DL Red Cell Distribution Width 13.1 10.0-14.5 % Platelet Count 335 130-400 10^3/uL Mean Platelet Volume 9.5 7.4-10.4 FL Neutrophils (%) (Auto) 59 42-75 % Lymphocytes (%) (Auto) 36 12-44 % Monocytes (%) (Auto) 4 0-12 % Eosinophils (%) (Auto) 2 0-10 % Basophils (%) (Auto) 0 0-10 % Neutrophils # (Auto) 5.9 1.8-7.8 X 10^3 Lymphocytes # (Auto) 3.6 1.0-4.0 X 10^3 Monocytes # (Auto) 0.4 0.0-1.0 X 10^3 Eosinophils # (Auto) 0.2 0.0-0.3 10^3/uL Basophils # (Auto) 0.0 0.0-0.1 10^3/uL Erythrocyte Sedimentation Rate 29 H 0-20 MM/HR Urine Color YELLOW Urine Clarity SLIGHTLY CLOUDY Urine pH 6 5-9 Urine Specific [place] 1.025 H 1.016-1.022 Urine Protein NEGATIVE NEGATIVE Urine Glucose (UA) NEGATIVE NEGATIVE Urine Ketones NEGATIVE NEGATIVE Urine Nitrite NEGATIVE NEGATIVE Urine Bilirubin NEGATIVE NEGATIVE Urine Urobilinogen NORMAL NORMAL MG/DL Urine Leukocyte Esterase 1+ H NEGATIVE Urine RBC (Auto) NEGATIVE NEGATIVE Urine RBC NONE /HPF Urine WBC 2-5 /HPF Urine Squamous Epithelial Cells 25-50 H /HPF Urine Crystals NONE /LPF Urine Bacteria FEW H /HPF Urine Casts NONE /LPF Urine Mucus LARGE H /LPF Urine Culture Indicated NO Sodium Level 141 135-145 MMOL/L Potassium Level 3.8 3.6-5.0 MMOL/L Chloride Level 105 98-107 MMOL/L Carbon Dioxide Level 24 21-32 MMOL/L Anion Gap 12 5-14 MMOL/L Blood Urea Nitrogen 11 7-18 MG/DL Creatinine 0.78 0.60-1.30 MG/DL Estimat Glomerular Filtration Rate > 60 BUN/Creatinine Ratio 14 Glucose Level 83 70-105 MG/DL Calcium Level 9.3 8.5-10.1 MG/DL Total Bilirubin 0.3 0.1-1.0 MG/DL Aspartate Amino Transf (AST/SGOT) 23 5-34 U/L Alanine Aminotransferase (ALT/SGPT) 25 0-55 U/L Alkaline Phosphatase 56 40-136 U/L Total Protein 7.2 6.4-8.2 G/DL Albumin 4.1 3.2-4.5 G/DL Amylase Level 47 25-125 U/L Lipase 26 8-78 U/L My Orders Orders - DAVID,GEOVANI WINDOW TINTER Amylase (10/11/16 16:53) Cbc With Automated Diff (10/11/16 16:53) Comprehensive Metabolic Panel (10/11/16 16:53) Lipase (10/11/16 16:53) Ua Culture If Indicated (10/11/16 16:53) Erythrocyte Sedimentation Rate (10/11/16 16:53) Chest Pa/Lat (2 View) (10/11/16 16:53) Ekg Tracing (4/27/17 16:59) Vital Signs/I&O Vital Sign - Last 12Hours 10/11/16 10/11/16 16:08 18:29 Temp 96.7 Pulse 72 78 Resp 16 16 B/P (MAP) 127/82 Pulse Ox 96 99 O2 Delivery Room Air Blood Pressure Mean: 97 Progress Note : Time: 16:50 Progress Note Initial evaluation completed, recommended EKG, chest x-ray, and lab workup. Will reevaluate when these are completed. 1730 reviewed diagnostic studies with the patient, all were essentially normal. Recommended follow-up with primary care provider if continued symptoms. ECG Initial ECG Impression Date: Oct 11, 2016 Initial ECG Impression Time: 17:07 Initial ECG Rate: 68 Initial ECG Rhythm: Normal Sinus Initial ECG Intervals: Normal Initial ECG Intervals HI 172; QRSD 82; QT 412; QTc 439 Initial ECG Impression: Normal Initial ECG Comparisson: Unchanged Comment Reviewed with Dr. Ruby, agreed with interpretation. Diagnostic Imaging Diagonstic Imaging: Xray Plain Films/CT/US/NM/MRI: chest Comments NAME: JAYLYN DELGADO [employer] REC#: [id number] PT STATUS: REG ER : 1985 PHYSICIAN: GEOVANI HERNANDEZ ADMIT DATE: 10/11/16/ER Draft Date of Exam:10/11/16 CHEST PA/LAT (2 VIEW) INDICATION: Chest pain with shortness of breath. Comparison with previous CT scan of 08/16/2016. FINDINGS: The lungs are well aerated. No infiltrates are demonstrated. No pleural effusion or pericardial effusion. No evidence of atelectasis. The heart is not enlarged. No pneumothorax. IMPRESSION: Normal PA and lateral chest. Dictated on workstation # [id number] Dict: 10/11/16 1800 Trans: 10/11/16 1802 [facility] [id number] Interpreted by: LINDSEY MARQUEZ MD Electronically signed by: Reviewed: Reviewed by Me Departure Impression Impression: Primary Impression: Cough Additional Impression: Abdominal pain Qualified Codes: R10.12 - Left upper quadrant pain Disposition: 01 HOME, SELF-CARE Condition: Improved Departure-Patient Inst. Decision time for Depature: 17:50 Referrals: CARMEN GIBBS MD (PCP/Family) Primary Care Physician Patient Instructions: Acute Abdomen (Belly Pain), Adult (DC), Cough, Adult (DC) Add. Discharge Instructions: All discharge instructions reviewed with patient and/or family. Voiced understanding. Follow-up with Dr. Gibbs for continued abdominal pain or left arm numbness. Return to emergency department if symptoms worsen or new concerns. Copy Copies To 1: CARMEN GIBBS MD, AMY ARNP Oct 11, 2016 17:17
[2016-10-11 17:22] LABS: BASOPHILS % (AUTO) 0 % (0-10); EOSINOPHILS # (AUTO) 0.2 10^3/uL (0.0-0.3); EOSINOPHILS % (AUTO) 2 % (0-10); LYMPHOCYTES # (AUTO) 3.6 X 10^3 (1.0-4.0); LYMPHOCYTES % (AUTO) 36 % (12-44); MEAN CORPUSCULAR HEMOGLOBIN 28 PG (25-34); MEAN CORPUSCULAR HGB CONC 33 G/DL (32-36); MEAN CORPUSCULAR VOLUME 85 FL (80-99); MEAN PLATELET VOLUME 9.5 FL (7.4-10.4); MONOCYTES # (AUTO) 0.4 X 10^3 (0.0-1.0); MONOCYTES % (AUTO) 4 % (0-12); NEUTROPHILS # (AUTO) 5.9 X 10^3 (1.8-7.8); NEUTROPHILS % (AUTO) 59 % (42-75); PLATELET COUNT 335 10^3/uL (130-400); RED BLOOD COUNT 4.58 10^6/uL (4.35-5.85); RED CELL DISTRIBUTION WIDTH 13.1 % (10.0-14.5); WHITE BLOOD COUNT 10.1 10^3/uL (4.3-11.0)
[2016-10-11 17:24] LABS: BILIRUBIN,URINE NEGATIVE (NEGATIVE); KETONES,URINE NEGATIVE (NEGATIVE); LEUKOCYTE ESTERASE ,URINE 1+ (NEGATIVE); NITRITE,URINE NEGATIVE (NEGATIVE); PH,URINE 6 (5-9); PROTEIN,URINE NEGATIVE (NEGATIVE); UROBILINOGEN,URINE NORMAL (NORMAL)
[2016-10-11 17:32] LABS: SQUAMOUS EPITHELIAL CELL,UR 25-50 /HPF
[2016-10-11 17:42] LABS: ALANINE AMINOTRANSFERASE 25 U/L (0-55); ALBUMIN 4.1 G/DL (3.2-4.5); AMYLASE 47 U/L (25-125); ANION GAP 12 MMOL/L (5-14); ASPARTATE AMINO TRANSFERASE 23 U/L (5-34); BILIRUBIN,TOTAL 0.3 MG/DL (0.1-1.0); BLOOD UREA NITROGEN 11 MG/DL (7-18); BUN/CREATININE RATIO 14; CALCIUM 9.3 MG/DL (8.5-10.1); CARBON DIOXIDE 24 MMOL/L (21-32); CHLORIDE 105 MMOL/L (98-107); CREATININE SERUM 0.78 MG/DL (0.60-1.30); GFR ESTIMATED > 60; GLUCOSE 83 MG/DL (70-105); LIPASE 26 U/L (8-78); POTASSIUM 3.8 MMOL/L (3.6-5.0); SODIUM 141 MMOL/L (135-145); TOTAL PROTEIN 7.2 G/DL (6.4-8.2)
[2016-10-11 17:43] LABS: ERYTHROCYTE SEDIMENTATION RATE 29 MM/HR (0-20)
--- NOTE | 2016-10-11 18:03 | Diagnostic Imaging Report ---
INDICATION: Chest pain with shortness of breath. Comparison with previous CT scan of 08/16/2016. FINDINGS: The lungs are well aerated. No infiltrates are demonstrated. No pleural effusion or pericardial effusion. No evidence of atelectasis. The heart is not enlarged. No pneumothorax. IMPRESSION: Normal PA and lateral chest. Dictated by: Dictated on workstation # [id number]
[2016-10-11 18:29] VITALS: BP 125/77
[2016-10-26] MEDS ORDERED: CIPR500T4 PO (14:33)
[2016-10-26] MEDS ORDERED: METR500T21 PO (14:33)
== END 2016-10-11 18:28 | disposition home or self-care (01) ==
LOC: EDUNIT# 15:49 → ER 15:52
DX: R10.12 Left upper quadrant pain (principal); R05 Cough; Z87.19 Personal history of other diseases of the digestive system
CPT/HCPCS: 36415; 71020; 80053; 81000; 82150; 83690; 85025; 85652; 93005

== ENCOUNTER → 2016-10-26 | Emergency (ER) | payer MEDICARE, MEDICAID ==
[~2016-10-26] VITALS: Ht 157.5 cm; Wt 104.3 kg
[~2016-10-26] MED LIST changes: +CIPR500T4 PO
[2016-10-26 13:10] VITALS: BP 136/85
--- NOTE | 2016-10-26 14:07 | ED GU-Female ---
General Chief Complaint: -Female Stated Complaint: VAGINAL DISCOMFORT Nursing Triage Note: c/o possible abscess to vaginal area. Onset yesterday Nursing Sepsis Screen: No Definite Risk Source: patient Exam Limitations: no limitations History of Present Illness Time seen by provider: 13:44 Initial Comments 31-year-old female patient presents to the emergency department complaints of possible abscess of the vaginal area beginning yesterday. Denies dysuria, frequency, hematuria. Timing/Duration: constant, yesterday Severity/Quality: moderate Location: other (labia) Activities at Onset: none Prior Genitourinary Problems: none Sexual [place] History: not active Modifying Factors: Worsens With Palpation Allergies and Home Medications Allergies Coded Allergies: fentanyl (Verified Allergy, Unknown, 05/23/16) meperidine (Verified Allergy, Unknown, 05/23/16) penicillin G (Verified Allergy, Unknown, 05/23/16) Home Medications Ciprofloxacin HCl 500 Mg Tablet, 500 MG PO BID, #14 Ref 0 Prescribed by: KIARA CALVERT on 10/26/16 1433 Diphenhydramine HCl 25 Mg Capsule, 25-50 MG PO Q6H PRN for ALLERGIES, (Reported) Estradiol 2 Mg Tablet, 3 MG PO HS, (Reported) TAKES 1 & 1/2 (2MG) TABLETS Fluoxetine HCl 20 Mg Capsule, 60 MG PO HS, (Reported) TAKES 3 (20MG) CAPSULES Ibuprofen 800 Mg Tablet, 800 MG PO Q8H PRN for PAIN, (Reported) Metronidazole 500 Mg Tablet, 500 MG PO TID, #21 Ref 0 Prescribed by: KIARA CALVERT on 10/26/16 1433 Ropinirole HCl 2 Mg Tablet, 2 MG PO HS, (Reported) Constitutional: No chills, No fever, No malaise Gastrointestinal: No abdominal pain, No diarrhea, No nausea, No vomiting Genitourinary: see HPI, denies burning, denies discharge, denies dysuria, denies frequency, denies flank pain, denies hematuria, pain Musculoskeletal: no symptoms reported Skin: see HPI, lumps (left labia) All Other Systemes Reviewed Negative Unless Noted: Yes (Negative excepted noted.) Past Elemwkd-Duyzwl-Xuuvpx Hx Patient Social History Alcohol Use: Denies Use Recreational Drug Use: No Smoking Status: Never a Smoker 2nd Hand Smoke Exposure: No Recent Foreign Travel: No Contact w/Someone Who Travel: No Recent Infectious Disease Expo: No Recent Hopitalizations: Yes (DECEMBER 2015-[facility] INFECTION) Immunizations Up To Date Tetanus Booster (TDap): Unknown Date of Pneumonia Vaccine: May 17, 2012 Date of Influenza Vaccine: Jul 03, 2012 Seasonal Allergies Seasonal Allergies: Yes (MILD) Surgeries HX Surgeries: Yes (R KNEE SCOPE X4 L X2, NASAL FX, EGD/COLONOSCOPY, COCCYX REMOVAL,) Surgeries: Abdominal, Adenoidectomy, Appendectomy, Gallbladder, 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, Orthopedic, Tonsillectomy Respiratory Hx Respiratory Disorders: Yes (HASNT USED INHALER IN 4YRS) Respiratory Disorders: Asthma Cardiovascular Hx Cardiac Disorders: No Neurological Hx Neurological Disorders: Yes (restless leg syndrome) Neurological Disorders: Headaches /Migraines 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 System Hx 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: Yes (HX ENDOMETRIOSIS ) Sexually Transmitted Disease: No HIV/AIDS: No 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, 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 Genitourinary Hx Genitourinary Disorders: Yes Genitourinary Disorders: UTI-Chronic Gastrointestinal Hx Gastrointestinal Disorders: Yes (ENLARGED LIVER) Gastrointestinal Disorders: Pancreatitis, Polyps Musculoskeletal Hx Musculoskeletal Disorders: Yes (COCCYX-REPAIRED, MAY HAVE SIGNS OF ARTHRITIS ) Musculoskeletal Disorders: Chronic Back Pain Endocrine Hx Endocrine Disorders: No HEENT HX ENT Disorders: No Loss of Vision: Denies Hearing Impairment: Denies Cancer Hx Cancer: No Psychosocial Hx Psychiatric Problems: Yes Behavioral Health Disorders: Anxiety, Depression Integumentary HX Skin/Integumentary Disorder: Yes (RASH ON BACK) Skin/Integumentary Disorders: Herpes Blood Transfusions Hx Blood Disorders: No Adverse Reaction to a Blood Tr: No Reviewed Nursing Assessment Reviewed/Agree w Nursing PMH: Yes Family Medical History Significant Family History: Cancer, Diabetes, Hypertension Family Medial History: Cardiovascular disease 19 FATHER Completed stroke 19 FATHER Diabetes mellitus 19 FATHER Hypercholesterolemia 19 FATHER 19 MOTHER Hypertension 19 FATHER 19 MOTHER Neoplasm 19 MOTHER Psychosocial problem 19 FATHER 19 MOTHER Physical Exam Vital Signs Vital Sign - Last 12Hours 10/26/16 13:10 Temp 98.3 Pulse 80 Resp 16 B/P (MAP) 136/85 Pulse Ox 98 O2 Delivery Room Air Capillary Refill : Less Than 3 Seconds General Appearance: WD/WN, no apparent distress Cardiovascular: regular rate, rhythm, no murmur Respiratory: lungs clear, normal breath sounds, no respiratory distress Gastrointestinal: normal bowel sounds, non tender, soft, no organomegaly Pelvic: other (1x1.5 cm erythema, induration, and tenderness on the left labia. ) Extremities: normal capillary refill Neurologic/Psychiatric: alert, normal mood/affect, oriented x 3 Skin: normal color, warm/dry, other (1x1.5 cm erythema, induration, and tenderness on the left labia.) Progress/Results/Core Measures Results/Orders Vital Signs/I&O Vital Sign - Last 12Hours 10/26/16 13:10 Temp 98.3 Pulse 80 Resp 16 B/P (MAP) 136/85 Pulse Ox 98 O2 Delivery Room Air Blood Pressure Mean: 102 Departure Impression Impression: Primary Impression: Cellulitis of labia majora Disposition: HOME, SELF-CARE Condition: Improved Departure-Patient Inst. Decision time for Depature: 14:31 Referrals: CARMEN GIBBS MD (PCP/Family) Primary Care Physician Patient Instructions: Cellulitis (Skin Infection), Adult (DC) Add. Discharge Instructions: All discharge instructions reviewed with patient and/or family. Voiced understanding. Medications as instructed. Tylenol negj-hxl-quctutg as directed for pain. Ibuprofen 600 mg by mouth every 6-8 hours as needed for pain. Ice packs or warm packs as needed. Follow-up with your family practitioner next week for recheck. Return to the emergency department for worsened symptoms or any other concerns. Scripts Metronidazole (Metronidazole) 500 Mg Tablet 500 MG PO TID, #21 TAB 0 Refills Prov: KIARA CALVERT 10/26/16 Ciprofloxacin HCl (Ciprofloxacin HCl) 500 Mg Tablet 500 MG PO BID, #14 TAB 0 Refills Prov: KIARA CALVERT 10/26/16 KIARA CALVERT October 26, 2016 14:07
== END | disposition home or self-care (01) ==
LOC: EDUNIT# 12:56 → ER 12:59
DX: N76.2 Acute vulvitis (principal)
CPT/HCPCS: 99282

== ENCOUNTER 2016-12-01 16:28 | Emergency (ER) | payer MEDICARE, MEDICAID ==
[~2016-12-01] VITALS: Ht 160 cm; Wt 104.3 kg
--- NOTE | 2016-12-01 17:20 | ED EENT ---
History of Present Illness General Chief Complaint: Oral/Throat Problems Stated Complaint: FEVER/THROAT PAIN Nursing Triage Note: c/o sore throat with intermittant fever x 1 week. Source: patient Exam Limitations: no limitations History of Present Illness Time seen by provider: 17:16 Initial Comments This 31-year-old white female presents with complaint of sore throat with fever for the past week. The patient has had a cellulitic rash to the skin of the neck beneath the mandible. Patient has had a lymph node biopsy by Dr. LYLES for an encapsulated infection of a lymph node in the region in the past. The patient denies associated headache, photophobia, stiff neck, productive cough or shortness of breath, nausea vomiting or diarrhea, other skin rash, or history of strep throat. Patient has been evaluated for unexplained weakness for the last 6 months with a variety of tests including hepatitis screens, HIV, mononucleosis, thyroid, and diabetes. No etiology for the patient's weakness has been established. She is under the care of Dr. Gibbs. Allergies and Home Medications Allergies Coded Allergies: fentanyl (Verified Allergy, Unknown, 05/23/16) meperidine (Verified Allergy, Unknown, 05/23/16) penicillin G (Verified Allergy, Unknown, 05/23/16) Home Medications Ciprofloxacin HCl 500 Mg Tablet, 500 MG PO BID, #14 Ref 0 Prescribed by: KIARA CALVERT on 10/26/16 1433 Diphenhydramine HCl 25 Mg Capsule, 25-50 MG PO Q6H PRN for ALLERGIES, (Reported) Estradiol 2 Mg Tablet, 3 MG PO HS, (Reported) TAKES 1 & 1/2 (2MG) TABLETS Fluoxetine HCl 20 Mg Capsule, 60 MG PO HS, (Reported) TAKES 3 (20MG) CAPSULES Ibuprofen 800 Mg Tablet, 800 MG PO Q8H PRN for PAIN, (Reported) Metronidazole 500 Mg Tablet, 500 MG PO TID, #21 Ref 0 Prescribed by: KIARA CALVERT on 10/26/16 1433 Ropinirole HCl 2 Mg Tablet, 2 MG PO HS, (Reported) Review of Systems Constitutional: fever Eyes: Denies Blurred Vision Ears: Denies Dizziness Nose: denies epistaxis Mouth: denies pain, denies swelling Throat: see HPI, pain, denies hoarse Respiratory: No cough Cardiovascular: No chest pain Gastrointestinal: No abdominal pain, No diarrhea, No nausea, No vomiting Musculoskeletal: No back pain Skin: No rash Neurological: Anxiety, Emotional Problems Hematologic/Lymphatic: Denies Easy Bleeding, Swollen Glands Immunological/Allergic: no symptoms reported Past Crpgtdg-Czlqle-Bdkyfu Hx Patient Social History 2nd Hand Smoke Exposure: No Recent Foreign Travel: No Contact w/Someone Who Travel: No Recent Infectious Disease Expo: No Recent Hopitalizations: Yes (DECEMBER 2015-[facility] INFECTION) Immunizations Up To Date Tetanus Booster (TDap): Unknown Date of Pneumonia Vaccine: May 17, 2012 Date of Influenza Vaccine: Jul 03, 2012 Seasonal Allergies Seasonal Allergies: Yes (MILD) Surgeries HX Surgeries: Yes (R KNEE SCOPE X4 L X2, NASAL FX, EGD/COLONOSCOPY, COCCYX REMOVAL,) Surgeries: Abdominal, Adenoidectomy, Appendectomy, Gallbladder, 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, Orthopedic, Tonsillectomy Respiratory Hx Respiratory Disorders: Yes (HASNT USED INHALER IN 4YRS) Respiratory Disorders: Asthma Cardiovascular Hx Cardiac Disorders: No Neurological Hx Neurological Disorders: Yes (restless leg syndrome) Neurological Disorders: Headaches /Migraines 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 System Hx 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: Yes (HX ENDOMETRIOSIS ) Sexually Transmitted Disease: No HIV/AIDS: No 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, 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 Genitourinary Hx Genitourinary Disorders: Yes Genitourinary Disorders: UTI-Chronic Gastrointestinal Hx Gastrointestinal Disorders: Yes (ENLARGED LIVER) Gastrointestinal Disorders: Pancreatitis, Polyps Musculoskeletal Hx Musculoskeletal Disorders: Yes (COCCYX-REPAIRED, MAY HAVE SIGNS OF ARTHRITIS ) Musculoskeletal Disorders: Chronic Back Pain Endocrine Hx Endocrine Disorders: No HEENT HX ENT Disorders: No Loss of Vision: Denies Hearing Impairment: Denies Cancer Hx Cancer: No Psychosocial Hx Psychiatric Problems: Yes Behavioral Health Disorders: Anxiety, Depression Integumentary HX Skin/Integumentary Disorder: Yes (RASH ON BACK) Skin/Integumentary Disorders: Herpes Blood Transfusions Hx Blood Disorders: No Adverse Reaction to a Blood Tr: No Reviewed Nursing Assessment Reviewed/Agree w Nursing PMH: Yes Family Medical History Significant Family History: Cancer, Diabetes, Hypertension Family Medial History: Cardiovascular disease 19 FATHER Completed stroke 19 FATHER Diabetes mellitus 19 FATHER Hypercholesterolemia 19 FATHER 19 MOTHER Hypertension 19 FATHER 19 MOTHER Neoplasm 19 MOTHER Psychosocial problem 19 FATHER 19 MOTHER Physical Exam Vital Signs Vital Sign - Last 12Hours 12/01/16 16:58 Temp 97.8 Pulse 70 Resp 16 B/P (MAP) 149/115 Pulse Ox 98 General Appearance: WD/WN, no apparent distress Eyes: bilateral eye normal inspection Ears: bilateral ear TM normal, bilateral ear auricle normal Nose: normal inspection, No active bleeding Mouth/Throat: normal mouth inspection, pharynx normal, No tongue swollen, No tonsillar exudate, No trismus Neck: non-tender, full range of motion, supple, normal inspection Cardiovascular: regular rate, rhythm Respiratory: chest non-tender, lungs clear, normal breath sounds, no respiratory distress Gastrointestinal: normal bowel sounds, non tender, soft Neurologic/Psychiatric: no motor/sensory deficits, alert, normal mood/affect Skin: normal color, warm/dry Progress/Results/Core Measures Results/Orders Lab Results Laboratory Tests Test 12/01/16 16:45 12/01/16 17:16 Range/Units Group A Streptococcus Screen NEGATIVE NEGATIVE Urine Color YELLOW Urine Clarity SLIGHTLY CLOUDY Urine pH 5 5-9 Urine Specific [place] 1.020 1.016-1.022 Urine Protein NEGATIVE NEGATIVE Urine Glucose (UA) NEGATIVE NEGATIVE Urine Ketones NEGATIVE NEGATIVE Urine Nitrite NEGATIVE NEGATIVE Urine Bilirubin NEGATIVE NEGATIVE Urine Urobilinogen NORMAL NORMAL MG/DL Urine Leukocyte Esterase NEGATIVE NEGATIVE Urine RBC (Auto) NEGATIVE NEGATIVE Urine RBC NONE /HPF Urine WBC 0-2 /HPF Urine Squamous Epithelial Cells 5-10 /HPF Urine Crystals NONE /LPF Urine Bacteria FEW H /HPF Urine Casts NONE /LPF Urine Mucus LARGE H /LPF Urine Culture Indicated YES My Orders Orders - ADRIÁN PARKS MD Rapid Strep A Screen (12/01/16 16:52) Cbc With Automated Diff (12/01/16 17:12) Hs C Reactive Protein (12/01/16 17:12) Comprehensive Metabolic Panel (12/01/16 17:12) Ua Culture If Indicated (12/01/16 17:12) Urine Culture (12/01/16 17:16) Vital Signs/I&O Vital Sign - Last 12Hours 12/01/16 16:58 Temp 97.8 Pulse 70 Resp 16 B/P (MAP) 149/115 Pulse Ox 98 Blood Pressure Mean: 126 Progress Note : Time: 18:08 Progress Note Patient's rapid strep screen was negative. Patient was asked to follow up closely with her primary care physician on Saturday and return to the emergency department if she had any further problems or questions Departure Impression Impression: Primary Impression: Pharyngitis Qualified Codes: J02.9 - Acute pharyngitis, unspecified Disposition: HOME, SELF-CARE Condition: Improved Departure-Patient Inst. Decision time for Depature: 18:12 Referrals: CARMEN GIBBS MD (PCP/Family) Primary Care Physician Patient Instructions: Viral Pharyngitis (DC) Add. Discharge Instructions: Rest at home this weekend. Follow up closely with your doctor on Saturday. Return if any problems. Ibuprofen or Tylenol for discomfort. All discharge instructions reviewed with patient and/or family. Voiced understanding. ADRIÁN PARKS MD Dec 01, 2016 17:20
[2016-12-01 17:25] LABS: BILIRUBIN,URINE NEGATIVE (NEGATIVE); KETONES,URINE NEGATIVE (NEGATIVE); LEUKOCYTE ESTERASE ,URINE NEGATIVE (NEGATIVE); NITRITE,URINE NEGATIVE (NEGATIVE); PH,URINE 5 (5-9); PROTEIN,URINE NEGATIVE (NEGATIVE); UROBILINOGEN,URINE NORMAL (NORMAL)
[2016-12-01 17:37] LABS: WBC,URINE 0-2 /HPF
[2016-12-01 18:26] LABS: BASOPHILS % (AUTO) 0 % (0-10); EOSINOPHILS # (AUTO) 0.2 10^3/uL (0.0-0.3); EOSINOPHILS % (AUTO) 2 % (0-10); LYMPHOCYTES # (AUTO) 3.1 X 10^3 (1.0-4.0); LYMPHOCYTES % (AUTO) 27 % (12-44); MEAN CORPUSCULAR HEMOGLOBIN 28 PG (25-34); MEAN CORPUSCULAR HGB CONC 33 G/DL (32-36); MEAN CORPUSCULAR VOLUME 86 FL (80-99); MEAN PLATELET VOLUME 9.2 FL (7.4-10.4); MONOCYTES # (AUTO) 0.4 X 10^3 (0.0-1.0); MONOCYTES % (AUTO) 4 % (0-12); NEUTROPHILS # (AUTO) 7.6 X 10^3 (1.8-7.8); NEUTROPHILS % (AUTO) 67 % (42-75); PLATELET COUNT 299 10^3/uL (130-400); RED BLOOD COUNT 4.36 10^6/uL (4.35-5.85); RED CELL DISTRIBUTION WIDTH 13.2 % (10.0-14.5); WHITE BLOOD COUNT 11.3 10^3/uL (4.3-11.0)
[2016-12-01 18:49] LABS: ALANINE AMINOTRANSFERASE 16 U/L (0-55); ALBUMIN 3.8 GM/DL (3.2-4.5); ANION GAP 11 MMOL/L (5-14); ASPARTATE AMINO TRANSFERASE 22 U/L (5-34); BILIRUBIN,TOTAL 0.4 MG/DL (0.1-1.0); BLOOD UREA NITROGEN 9 MG/DL (7-18); BUN/CREATININE RATIO 13 (0-20); CALCIUM 9.1 MG/DL (8.5-10.1); CARBON DIOXIDE 25 MMOL/L (21-32); CHLORIDE 106 MMOL/L (98-107); GFR ESTIMATED > 60; GLUCOSE 98 MG/DL (70-105); HEMOLYSIS 6 (-100-29); ICTERUS 0.3 (-100-1.9); LIPEMIA 7 (-100-49); POTASSIUM 3.9 MMOL/L (3.6-5.0); SODIUM 142 MMOL/L (135-145); TOTAL PROTEIN 7.1 GM/DL (6.4-8.2); hs C REACTIVE PROTEIN 1.54 MG/DL (0.00-0.50)
[2016-12-01 19:04] VITALS: BP 90/52
== END 2016-12-01 19:04 | disposition home or self-care (01) ==
LOC: EDUNIT# 16:28 → ER 16:29
DX: J02.9 Acute pharyngitis, unspecified (principal); J45.909 Unspecified asthma, uncomplicated
CPT/HCPCS: 36415; 80053; 81000; 85025; 86141; 87088; 87430; 99282

== ENCOUNTER 2017-01-30 23:31 | Emergency (ER) | payer MEDICARE, MEDICAID ==
[~2017-01-30] VITALS: Ht 160 cm; Wt 106.6 kg
[2017-01-30] MEDS ORDERED: ANTACID SUSP 30 ML UDC (MYLANTA) ONE (23:34)
[2017-01-30] MEDS ORDERED: LIDOCAINE 2% VISCOUS 15 ML UDC ONE (23:34)
--- NOTE | 2017-01-31 00:11 | ED General ---
General Chief Complaint: Allergic Reaction Stated Complaint: POSS ALLERGIC RXN Nursing Triage Note: PT TO ED 7 W/ C/O BURNING IN HER THROAT ONSET THIS EVENING. PT REPORTS SHE TOOK THE TRASH OUT TONIGHT ET TOUCHED A BOX OF RAT POISON. DENIES ACTUALLY TOUCHING THE RAT POISON BUT THEN STATES W/O WASHING HER HANDS, SHE MADE HERSELF DINNER THEN ATE SAID DINNER. PT ALSO REPORTS SHE MAY HAVE EATEN A "BAD OR MOLDY COOKIE". SINCE THEN, PTS IS C/O "BURNING IN HER THROAT" ET IS CONSTANTLY CLEARING IT. NO SOB, HIVES, RASH OR SWELLING NOTED AT THIS TIME. VSS Nursing Sepsis Screen: No Definite Risk Source of Information: Patient History of Present Illness Time Seen by Provider: 23:59 Initial Comments PT STATES "I'M HAVING TROUBLE WITH MY THROAT" STATES "IT'S A CONSTANT TICKLE" STATES AROUND 2230 TONIGHT, SHE PICKED UP THE TRASH AND IT HAD "MOUSE POISON" IN IT AND SHE TOUCHED THE BOX--DID NOT TOUCH ANY OF THE ACTUAL POISON. SHE STATES SHE DID NOT WASH HER HANDS, AFTER THAT, AND THEN ATE DINNER, THEN TOOK HER EVENING MEDICATIONS AND THEN SHE ATE A COOKIE. THEN SHE STARTED HAVING A "TICKLE" IN HER THROAT AND STATES "IT REALLY FREAKED ME OUT" NO ACTUAL PAIN IN HER THROAT NO COUGH OR DIFFICULTY BREATHING NO RASH NO SWELLING ANYWHERE, AND HAS BEEN ABLE TO DRINK LIQUIDS SINCE THIS STARTED. TOOK 50 MG BENADRYL AND RUSHED STRAIGHT HERE PT WITH MULTITUDE OF VISITS Allergies and Home Medications Allergies Coded Allergies: fentanyl (Verified Allergy, Unknown, 05/23/16) meperidine (Verified Allergy, Unknown, 05/23/16) penicillin G (Verified Allergy, Unknown, 05/23/16) Home Medications Diphenhydramine HCl 25 Mg Capsule, 25-50 MG PO Q6H PRN for ALLERGIES, (Reported) Estradiol 2 Mg Tablet, 3 MG PO HS, (Reported) TAKES 1 & 1/2 (2MG) TABLETS Fluoxetine HCl 20 Mg Capsule, 60 MG PO HS, (Reported) TAKES 3 (20MG) CAPSULES Ibuprofen 800 Mg Tablet, 800 MG PO Q8H PRN for PAIN, (Reported) Ropinirole HCl 2 Mg Tablet, 2 MG PO HS, (Reported) Constitutional: no symptoms reported EENTM: see HPI Respiratory: no symptoms reported Cardiovascular: no symptoms reported Gastrointestinal: no symptoms reported Genitourinary: no symptoms reported Musculoskeletal: no symptoms reported Skin: no symptoms reported Psychiatric/Neurological: See HPI, Anxiety Hematologic/Lymphatic: No Symptoms Reported Past Kiepxmq-Kcogbk-Fffsyc Hx Patient Social History Alcohol Use: Denies Use Recreational Drug Use: No Smoking Status: Never a Smoker 2nd Hand Smoke Exposure: No Recent Foreign Travel: No Contact w/Someone Who Travel: No Recent Infectious Disease Expo: No Recent Hopitalizations: Yes (DECEMBER 2015-[facility] INFECTION) Immunizations Up To Date Tetanus Booster (TDap): Unknown Date of Pneumonia Vaccine: May 17, 2012 Date of Influenza Vaccine: Jul 03, 2012 Seasonal Allergies Seasonal Allergies: Yes (MILD) Surgeries HX Surgeries: Yes (R KNEE SCOPE X4 L X2, NASAL FX, EGD/COLONOSCOPY, COCCYX REMOVAL,) Surgeries: Abdominal, Adenoidectomy, Appendectomy, Gallbladder, 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, Orthopedic, Tonsillectomy Respiratory Hx Respiratory Disorders: Yes (HASNT USED INHALER IN 4YRS) Respiratory Disorders: Asthma Cardiovascular Hx Cardiac Disorders: No Neurological Hx Neurological Disorders: Yes (restless leg syndrome) Neurological Disorders: Headaches /Migraines 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 System Hx 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: Yes (HX ENDOMETRIOSIS ) Sexually Transmitted Disease: No HIV/AIDS: No 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, 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 Genitourinary Hx Genitourinary Disorders: Yes Genitourinary Disorders: UTI-Chronic Gastrointestinal Hx Gastrointestinal Disorders: Yes (ENLARGED LIVER) Gastrointestinal Disorders: Pancreatitis, Polyps Musculoskeletal Hx Musculoskeletal Disorders: Yes (COCCYX-REPAIRED, MAY HAVE SIGNS OF ARTHRITIS ) Musculoskeletal Disorders: Chronic Back Pain Endocrine Hx Endocrine Disorders: No HEENT HX ENT Disorders: No Loss of Vision: Denies Hearing Impairment: Denies Cancer Hx Cancer: No Psychosocial Hx Psychiatric Problems: Yes Behavioral Health Disorders: Anxiety, Depression Integumentary HX Skin/Integumentary Disorder: Yes (RASH ON BACK) Skin/Integumentary Disorders: Herpes Blood Transfusions Hx Blood Disorders: No Adverse Reaction to a Blood Tr: No Family Medical History Significant Family History: Cancer, Diabetes, Hypertension Family Medial History: Cardiovascular disease 19 FATHER Completed stroke 19 FATHER Diabetes mellitus 19 FATHER Hypercholesterolemia 19 FATHER 19 MOTHER Hypertension 19 FATHER 19 MOTHER Neoplasm 19 MOTHER Psychosocial problem 19 FATHER 19 MOTHER Physical Exam Vital Signs Vital Sign - Last 12Hours 01/30/17 23:35 Temp 98.3 Pulse 94 Resp 20 B/P (MAP) 148/87 Pulse Ox 98 O2 Delivery Room Air Capillary Refill : Less Than 3 Seconds General Appearance: No Apparent Distress, Anxious, Obese, Other (CONSTANTLY CLEARING THROAT. TALKS IN FULL SENTENCES AT LENGTH) HEENT: PERRL/EOMI, TMs Normal, Normal ENT Inspection, Pharynx Normal Neck: Full Range of Motion, Normal Inspection, Non Tender, Supple Respiratory: Normal Breath Sounds, No Accessory Muscle Use, No Respiratory Distress Cardiovascular: Regular Rate, Rhythm, No Edema, No JVD, No Murmur, Normal Peripheral Pulses Gastrointestinal: Non Tender, Soft Extremity: Normal Inspection, No Pedal Edema Neurologic/Psychiatric: Alert, Oriented x3, No Motor/Sensory Deficits, senior trainer II- XII Norm as Tested Skin: Normal Color, Warm/Dry Progress/Results/Core Measures Results/Orders My Orders Orders - YAN CHAPARRO DO Lidocaine 2% Viscous 15 Ml (Xylocaine Vi (01/30/17 23:34) Antacid Suspension (Mylanta Suspension (01/30/17 23:34) Benzonatate Capsule (Tessalon Perles) (01/31/17 00:15) Antacid Suspension (Mylanta Suspension (01/31/17 00:15) Lidocaine 2% Viscous 15 Ml (Xylocaine Vi (01/31/17 00:15) Medications Given in ED Current Medications Medications Dose Ordered Sig/Neal Route Start Time Stop Time Status Last Admin Dose Admin Al Hydrox/Mg Hydrox/Simethicone 30 ml ONCE ONCE PO 01/31/17 00:15 01/31/17 00:16 DC 01/30/17 23:42 30 ML Lidocaine HCl 5 ml ONCE ONCE PO 01/31/17 00:15 01/31/17 00:16 DC 01/30/17 23:42 5 ML Vital Signs/I&O Vital Sign - Last 12Hours 01/30/17 23:35 Temp 98.3 Pulse 94 Resp 20 B/P (MAP) 148/87 Pulse Ox 98 O2 Delivery Room Air Blood Pressure Mean: 107 Progress Note : Progress Note SYMPTOMS IMPROVED WITH GI COCKTAIL Departure Impression Impression: Primary Impression: Tickle in throat Additional Impression: Anxiety Disposition: 01 HOME, SELF-CARE Condition: Stable Departure-Patient Inst. Referrals: CARMEN GIBBS MD (PCP/Family) Primary Care Physician Patient Instructions: NO INSTRUCTIONS GIVEN Add. Discharge Instructions: CONTINUE YOUR REGULAR MEDICATIONS PRESCRIBED TAKE BENADRYL 50 MG EVERY 4 HOURS NEEDED FOLLOW UP WITH YOUR DR IN 2-3 DAYS IF NO BETTER All discharge instructions reviewed with patient and/or family. Voiced understanding. YAN CHAPARRO DO Jan 31, 2017 00:11
[2017-01-31] MEDS ORDERED: LIDOCAINE 2% VISCOUS 15 ML UDC PO ONE (00:15)
[2017-01-31] MEDS ORDERED: ANTACID SUSP 30 ML UDC (MYLANTA) PO ONE (00:15)
[2017-01-31] MEDS ORDERED: BENZONATATE 100 MG (TESSALON) CAPSULE PO SCH (00:15)
[2017-01-31 00:22] VITALS: BP 0/0
== END 2017-01-31 00:22 | disposition home or self-care (01) ==
LOC: EDUNIT# 23:31 → ER 23:32
DX: J39.2 Other diseases of pharynx (principal); F41.9 Anxiety disorder, unspecified; J45.909 Unspecified asthma, uncomplicated; F32.9 Major depressive disorder, single episode, unspecified; G43.909 Migraine, unspecified, not intractable, without status migrainosus; Z86.19 Personal history of other infectious and parasitic diseases; Z82.49 Family history of ischemic heart disease and other diseases of the circulatory system; Z87.440 Personal history of urinary (tract) infections; Z86.010 Personal history of colon polyps; Z87.19 Personal history of other diseases of the digestive system; Z90.710 Acquired absence of both cervix and uterus; Z90.49 Acquired absence of other specified parts of digestive tract; Z90.89 Acquired absence of other organs
CPT/HCPCS: 99283

== ENCOUNTER 2017-02-21 06:00 | Emergency (ER) | payer MEDICARE, MEDICAID ==
[~2017-02-21] VITALS: Ht 160 cm; Wt 106.8 kg
--- NOTE | 2017-02-21 06:36 | ED Integumentary General ---
General Chief Complaint: General Problems/Pain Stated Complaint: GLENNA ON NECK-HOT,MEJIA,HURTS TO SWALLOW Source: patient Exam Limitations: no limitations History of Present Illness Time seen by provider: 06:28 Initial Comments Patient presents to ER with a chief complaint of to 3 days of headache and is feeling a little off and then this morning waking up about 3 in the morning with a midline tender red knot just below her mentum. She says she gets these from time to time but this is the worst this been last time she got one she had something done about it she dictated to Dr. Daniel who did some and a procedure to remove it and was just submental multiple left of her midline. She does not seem to remember if she had a thyroglossal duct cyst or pharyngeal cleft cyst however she just members that she had to be put on Bactrim and have it cut out by the surgeon. She says her primary care physician will not cut on these. And she says the reason she came to the ERs because it takes too many days to get in to be seen by the surgeon and it hurts. So far she has taken nothing for it and has not been on antibiotics last 4 weeks. She has no fevers chills nausea vomiting diarrhea. She says it her whole throat feels inflamed and its mildly discomfortable to swallow. Allergies and Home Medications Allergies Coded Allergies: fentanyl (Verified Allergy, Unknown, 05/23/16) meperidine (Verified Allergy, Unknown, 05/23/16) penicillin G (Verified Allergy, Unknown, 05/23/16) Home Medications Diphenhydramine HCl 25 Mg Capsule, 25-50 MG PO Q6H PRN for ALLERGIES, (Reported) Estradiol 2 Mg Tablet, 3 MG PO HS, (Reported) TAKES 1 & 1/2 (2MG) TABLETS Fluoxetine HCl 20 Mg Capsule, 60 MG PO HS, (Reported) TAKES 3 (20MG) CAPSULES Ibuprofen 800 Mg Tablet, 800 MG PO Q8H PRN for PAIN, (Reported) Ropinirole HCl 2 Mg Tablet, 2 MG PO HS, (Reported) Constitutional: No chills, No diaphoresis EENTM: No ear pain, No eye pain, No nose congestion Respiratory: No cough, No short of breath Cardiovascular: No chest pain, No vascular heart diseas Gastrointestinal: No nausea, No vomiting Genitourinary: No discharge, No dysuria : No (hysterectomy for endometriosis) Musculoskeletal: No back pain, No joint pain Skin: No pruritus, No rash Psychiatric/Neurological: Headache, Denies Numbness, Denies Paresthesia Past Dzjxggs-Hiupbc-Hqevwe Hx Patient Social History Alcohol Use: Denies Use Recreational Drug Use: No Smoking Status: Never a Smoker 2nd Hand Smoke Exposure: No Recent Foreign Travel: No Contact w/Someone Who Travel: No Recent Hopitalizations: Yes (DECEMBER 2015-[facility] INFECTION) Physical Abuse: No Sexual Abuse: No Immunizations Up To Date Tetanus Booster (TDap): Unknown Date of Pneumonia Vaccine: May 17, 2012 Date of Influenza Vaccine: Jul 03, 2012 Seasonal Allergies Seasonal Allergies: Yes (MILD) Surgeries History of Surgeries: Yes (R KNEE SCOPE X4 L X2, NASAL FX, EGD/COLONOSCOPY, COCCYX REMOVAL,) Surgeries: Abdominal, Adenoidectomy, Appendectomy, Gallbladder, 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, Orthopedic, Tonsillectomy Respiratory History of Respiratory Disorde: Yes (HASNT USED INHALER IN 4YRS) Respiratory Disorders: Asthma Currently Using CPAP: No Currently Using BIPAP: No Cardiovascular History of Cardiac Disorders: No Neurological History of Neurological Disord: Yes (restless leg syndrome) Neurological Disorders: Headaches /Migraines 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 System Hx 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: Yes (HX ENDOMETRIOSIS ) Sexually Transmitted Disease: No HIV/AIDS: No 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, 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 Genitourinary History of Genitourinary Disor: No Genitourinary Disorders: UTI-Chronic Gastrointestinal History of Gastrointestinal Di: Yes (ENLARGED LIVER) Gastrointestinal Disorders: Pancreatitis, Polyps Musculoskeletal History of Musculoskeletal Dis: Yes (COCCYX-REPAIRED, MAY HAVE SIGNS OF ARTHRITIS) Musculoskeletal Disorders: Chronic Back Pain Endocrine History of Endocrine Disorders: No HEENT History of HEENT Disorders: No Loss of Vision: Denies Hearing Impairment: Denies Cancer History of Cancer: No Psychosocial History of Psychiatric Problem: Yes Behavioral Health Disorders: Anxiety, Depression Suicide Risk Score: 0 Integumentary History of Skin or Integumenta: Yes (RASH ON BACK) Skin/Integumentary Disorders: Herpes Blood Transfusions History of Blood Disorders: No Adverse Reaction to a Blood Tr: No Family Medical History Significant Family History: Cancer, Diabetes, Hypertension Family Medial History: Cardiovascular disease 19 FATHER Completed stroke 19 FATHER Diabetes mellitus 19 FATHER Hypercholesterolemia 19 FATHER 19 MOTHER Hypertension 19 FATHER 19 MOTHER Neoplasm 19 MOTHER Psychosocial problem 19 FATHER 19 MOTHER Physical Exam Vital Signs Vital Sign - Last 12Hours 02/21/17 06:06 Temp 97.0 Pulse 74 Resp 20 B/P (MAP) 143/82 Pulse Ox 97 O2 Delivery Room Air Capillary Refill : General Appearance: WD/WN, mild distress HEENT: PERRL/EOMI, normal ENT inspection, TMs normal, pharynx normal (without tonsils) Neck: full range of motion, lymphadenopathy (R) (shotty less than half centimeter bilateral), lymphadenopathy (L), tender lateral, tender midline, No thyromegaly, other (erythematous, ill-defined area of induration midline about 3 cm submental just below the surface of the skin measuring approximately one half by 2-1/2 cm that does not seem to move with tongue protrusion) Cardiovascular: normal peripheral pulses, regular rate, rhythm Respiratory: chest non-tender, lungs clear, normal breath sounds Neurologic/Psychiatric: alert, oriented x 3 Skin: warm/dry, other (mild erythema over the area of induration midline neck. There is an area of erythematous, scaly, honey crusted lesion over the right mentum approximately 2 x 3 cm) Progress/Results/Core Measures Results/Orders Vital Signs/I&O Vital Sign - Last 12Hours 02/21/17 06:06 Temp 97.0 Pulse 74 Resp 20 B/P (MAP) 143/82 Pulse Ox 97 O2 Delivery Room Air Progress Note : Time: 06:54 Progress Note Bedside ultrasonography does not demonstrate any cyst or collection of fluid. There is a single being any overt thyroglossal duct cyst however there is some inflammation in the area of induration. There are also some superficial blood vessels that are present in the area. Nothing to easily incise and drain. We'll go ahead and start her on antibiotics give her some mupirocin for her area of impetigo and have her use warm compresses. Plan would be to follow-up with Dr. Daniel early next week. Departure Impression Impression: Primary Impression: Cellulitis Disposition: 01 HOME, SELF-CARE Condition: Stable Departure-Patient Inst. Decision time for Depature: 06:56 Referrals: CAREMN GIBBS MD (PCP/Family) Primary Care Physician Add. Discharge Instructions: This morning I would ask you to call Dr. Daniel at his office at [phone] and requests an appointment for early next week for further evaluation if you're red knot on your neck does not improve. Ahead and cloth picker and start taking the Bactrim one tablet twice a day with food. While you're on antibiotics twice to take probiotics twice a day as well. If you prefer you could also use yogurt with active culture such as Lithuanian yogurt twice a day to prevent the antibiotic related diarrhea that sometimes occurs with all antibiotics. You may also follow -up with your primary care physician as needed. All discharge instructions reviewed with patient and/or family. Voiced understanding. Scripts Sulfamethoxazole/Trimethoprim (Bactrim Ds Tablet) 1 Each Tablet 1 EACH PO BID for 10 Days, #20 TAB 0 Refills Prov: MAKAYLA HAWKINS 02/21/17 Mupirocin (Mupirocin) 22 Gm Oint...g. 22 GM TP BID for 7 Days, #1 TUBE 0 Refills Prov: MAKAYLA HAWKINS 02/21/17 Copy Copies To 1: CARMEN GIBBS MD Copies To 2: YUNIOR DANIEL MD, TITUS J Feb 21, 2017 06:36
[2017-02-21] MEDS ORDERED: MUPI22OI2 TP (07:01)
[2017-02-21] MEDS ORDERED: SULF1TAB35 PO (07:01)
[2017-02-21 07:06] VITALS: BP 143/82
== END 2017-02-21 07:06 | disposition home or self-care (01) ==
LOC: EDUNIT# 06:00 → ER 06:02
DX: L03.221 Cellulitis of neck (principal); J45.909 Unspecified asthma, uncomplicated; G43.909 Migraine, unspecified, not intractable, without status migrainosus; F41.9 Anxiety disorder, unspecified; F32.9 Major depressive disorder, single episode, unspecified; Z86.19 Personal history of other infectious and parasitic diseases; Z82.49 Family history of ischemic heart disease and other diseases of the circulatory system; Z87.440 Personal history of urinary (tract) infections; Z87.19 Personal history of other diseases of the digestive system; Z86.010 Personal history of colon polyps; Z90.89 Acquired absence of other organs; Z90.49 Acquired absence of other specified parts of digestive tract; Z90.710 Acquired absence of both cervix and uterus
CPT/HCPCS: 99281

== ENCOUNTER 2017-03-07 08:43 | Emergency (ER) | payer MEDICARE, MEDICAID ==
[~2017-03-07] VITALS: Ht 160 cm; Wt 106.8 kg
[~2017-03-07 08:43] MED LIST changes: +MUPI22OI2 TP
--- OUTSIDE RECORDS SUMMARY | 2017-03-07 08:50 | XMS REPORT | Continuity of Care Document ---
Author Author [employer] Organization [facility] Address Unknown Phone Unavailable Care Team Providers Care Internet Marketing Manager Name Role Phone [employer] Unavailable Unavailable Problems Medications Allergies, Adverse Reactions, Alerts Immunizations Results Vital Signs Encounters Location Location Details Encounter Type Encounter Number Reason For Visit Attending Provider ADM Date DC Date Status Source Christa MENDEZ Active [facility] Procedures Plan of Care Social History Assessment and Plan Family History Value Date Source Advance Directives Order Name Results Value Date Source
--- OUTSIDE RECORDS SUMMARY | 2017-03-07 08:51 | XMS REPORT | Encounter Summary ---
Author Author [facility] Organization [facility] Address Unknown Phone Unavailable Care Team Providers Care Systems Development Manager Name Role Phone PCP Unavailable Reason for Visit * Reason Comments Medication Refill Encounter Details Date Type Department Care Team Description 12/25/2016 Refill [facility] Jessica Valera ARNP Physicians - Internal [address] [facility] [place] [address] [facility] [place] [address] OFFICE BLDG [phone] [address] [address] Social History Tobacco Use Types Packs/Day Years Used Date Never Smoker Alcohol Use Drinks/Week oz/Week Comments Yes Does not consume alcohol in excess. Sex Assigned at Date Recorded Not on file as of this encounter Plan of Treatment Not on fileas of this encounter Visit Diagnoses Not on filein this encounter
--- OUTSIDE RECORDS SUMMARY | 2017-03-07 08:51 | XMS REPORT | Clinical Summary ---
Author Author [facility] Organization [facility] Address Unknown Phone Unavailable Care Team Providers Care Roll Capper Name Role Phone PCP Unavailable Source Comments Some departments are not documenting in the electronic medical record. If you do not see the information that you expected, contact Release of Information in the Health Information Management department at [phone] for further assistance in locating additional records.[facility] Allergies Active Allergy Reactions Severity Noted Date Comments Meperidine (Pf) UNKNOWN 09/20/2011 Fentanyl UNKNOWN 09/20/2011 Penicillins UNKNOWN 09/20/2011 Current Medications Prescription Sig. Disp. Refills Start [...] times daily as needed for 15 Nausea. falifl-vneryotk-otdaaeh Take 80,000 Units by 240 Cap 6 02/01/20 Active (ZENPEP) 40,000-136,000- mouth three times daily 15 218,000 unit with meals. (take 2 caps cpDRIndications: Other with meals, 1 cap with chronic pancreatitis snacks. (HCC) prazosin (MINIPRESS) 2 mg Take 2 mg by mouth at Active capsule bedtime daily. ibuprofen (MOTRIN) 800 mg Take 800 mg by mouth Active tablet every 6 hours as needed for Pain. VIT Take by mouth. Active W-CA,FE,FA(<1 MG) ( VITAMIN PO) other 1 Dose daily. Active medicationIndications: Indications: One Source One Source hair and nail hair and nail vitamin vitamin omeprazole DR(+) Take 1 Cap by mouth 90 Cap 1 02/04/20 Active (PRILOSEC) 40 mg capsule daily. Take 30 minutes 15 before morning meal. traMADol (ULTRAM) 50 mg Take 1 Tab by mouth twice 60 Tab 1 07/18/19 Active tablet daily. 16 ondansetron (ZOFRAN ODT) DISSOLVE ONE TABLET IN 60 Tab 0 12/26/19 Active 8 mg rapid dissolve MOUTH EVERY 8 HOURS 17 tablet NEEDED FOR NAUSEA; NEED GI OFFICE VISIT FOR ANY ADDITIONAL REFILLS Active Problems Problem Noted Date 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 06/24/2013 Overview: S/P HOLLAND, BSO 11/27 Depression 06/24/2013 S/P cholecystectomy 06/24/2013 Overview: 2007 S/P appendectomy 06/24/2013 Overview: November 2012 Pancreatitis 10/23/2011 Encounters Date Type Specialty Care Team Description 12/25/2016 Refill Gastroenterology Jessica Valera ARNP from Last 3 Months Family History Medical History Relation Name Comments Diabetes Father Hypertension Father Cancer-Colon Maternal Grandfather Cancer Maternal Cervix Grandmother Cancer-Ovarian Maternal Grandmother Arthritis-rheumatoid Mother Cancer Mother Cervix Cancer-Ovarian Mother Hypertension Mother Heart Disease Relation Name Status Comments Father Alive Maternal Grandfather Maternal Grandmother Mother Alive Social History Tobacco Use Types Packs/Day Years Used Date Never Smoker Alcohol Use Drinks/Week oz/Week Comments Yes Does not consume alcohol in excess. Sex Assigned at Date Recorded Not on file Last Filed Vital Signs Vital Sign Reading Time Taken Blood Pressure 113/74 02/03/2015 3:19 PM CDT Pulse 71 02/03/2015 3:19 PM CDT Temperature 36.2 C (97.1 F) 02/03/2015 3:19 PM CDT Respiratory Rate 17 08/26/2014 10:12 AM CDT Oxygen Saturation - - Inhaled Oxygen - - Concentration Weight 112.2 kg (247 lb 6.4 oz) 02/03/2015 3:19 PM CDT Height 157.5 cm (5' 2") 02/03/2015 3:19 PM CDT Body Mass Index 45.25 02/03/2015 3:19 PM CDT Plan of Treatment Health Maintenance Due Date Last Done Comments PHYSICAL (COMPREHENSIVE) 1991 EXAM PERTUSSIS VACCINE 1995 TETANUS VACCINE 2001 CERVICAL CANCER SCREENING 2014 INFLUENZA VACCINE 03/17/2017 Results Not on filefrom Last 3 Months
--- OUTSIDE RECORDS SUMMARY | 2017-03-07 08:56 | XMS REPORT ---
Author Author JUAREZ GUEVARA Organization [facility] Address [address] [place] [address] Care Team Providers Care Sack Repairer Name Role Phone JUAREZ GUEVARA Unavailable PROBLEMS Type Condition ICD9-CM Code [id number] Code Onset Dates Condition Status SNOMED Code Problem Chronic pancreatitis K86.1 Active 602273531 Problem Polydipsia R63.1 Active 21947571 Problem Chronic pancreatitis, unspecified pancreatitis type K86.1 Active 265739023 Problem Excessive thirst R63.1 Active 16146656 Problem Chronic post-traumatic stress disorder (PTSD) F43.12 Active 263033984 Problem Restless leg syndrome G25.81 Active 48046595 Problem Atelectasis J98.11 Active 33531448 Problem Generalized social phobia F40.11 Active 31643638 Problem Trichotillomania F63.3 Active 95722153 Problem Hirsuties L68.0 Active 482678472 Problem FH: polycystic ovary Z84.2 Active 180733052 Problem Hyperlipidemia, mixed E78.2 Active 194811402 Problem Chronic tension-type headache, intractable G44.221 Active 017953101 Problem Morbid (severe) obesity due to excess calories E66.01 Active 443504040 Problem Asthma J45.909 Active 800028986 ALLERGIES Substance Reaction Event Type Date Status Penicillin V Potassium Unknown Drug Allergy May, Active Fentanyl Unknown Drug Allergy May, Active Demerol Unknown Drug Allergy May, Active SOCIAL HISTORY No smoking Hx information available PLAN OF CARE Activity Details Follow Up prn Reason: VITAL SIGNS Height 62 in 2016-06-14 Weight 251.8 lbs 2016-06-14 Temperature 97.6 degrees Fahrenheit 2016-06-14 Heart Rate 72 bpm 2016-06-14 Respiratory Rate 20 2016-06-14 BMI 46.05 kg/m2 2016-06-14 Blood pressure systolic 128 mmHg 2016-06-14 Blood pressure diastolic 74 mmHg 2016-06-14 MEDICATIONS Medication Instructions Dosage Frequency Start Date End Date Duration Status Zyrtec Allergy 10 MG Orally Once a day 1 tablet 24h May, Jun, 30 day(s) Active Estradiol 2 MG Orally Once a day 1.5 tablet by Oral route 1 time per day 24h Apr, Active Benadryl 25 MG Orally every 6 hrs 1-2 capsule as needed 6h Active Prozac 60 mg Orally Once a day 3 tablets 24h Active Albuterol Sulfate (2.5 MG/3ML) 0.083% Inhalation Three times a day 3 ml 8h Jun, Active Ondansetron HCl 8 mg 1 tablet by Oral route every 8 hours PRN Jul, Active PredniSONE 20 MG Orally Once a day 1 tablet 24h May, 3 Jun, 2016 5 days Active Pantoprazole Sodium 20 mg Orally Once a day 1 tablet 24h Mar, Active Hydrocodone-Acetaminophen 5-325 MG Orally every 6 hrs 1 tablet as needed 6h Active Ibuprofen 800 MG Orally Three times a day take 1 tablet (800 mg) by oral route 3 times per day with food 8h Mar, 30 days Active Estrogens Conjugated Active Triamcinolone Acetonide 0.1 % Externally Twice a day 1 application to affected area 12h Dec, Active RESULTS No Results PROCEDURES Procedure Date Ordered Related Diagnosis Body Site [facility] VISIT ESTABLISHED PATIENT Jun 14, 2016 Office Visit, Est Pt., Level 3 Jun 14, 2016 IMMUNIZATIONS No Known Immunizations
--- OUTSIDE RECORDS SUMMARY | 2017-03-07 08:59 | XMS REPORT ---
Author Author [facility] Address [address] [place] [address] Care Team Providers Care Payable Manager Name Role Phone SAICORTNEY KOENIGHANY Unavailable PROBLEMS Type Condition ICD9-CM Code KTT78-CK Code Onset Dates Condition Status SNOMED Code Problem Chronic pancreatitis, unspecified pancreatitis type K86.1 Active 591583869 Problem Polydipsia R63.1 Active 40393994 Problem Asthma J45.909 Active 117382693 Problem Excessive thirst R63.1 Active 67609615 Problem Chronic post-traumatic stress disorder (PTSD) F43.12 Active 096950498 Problem Restless leg syndrome G25.81 Active 05300553 Problem Atelectasis J98.11 Active 98429531 Problem Generalized social phobia F40.11 Active 45428464 Problem Trichotillomania F63.3 Active 11306190 Problem Morbid (severe) obesity due to excess calories E66.01 Active 064629192 Problem Hirsuties L68.0 Active 313625001 Problem Chronic tension-type headache, intractable G44.221 Active 417042089 Problem FH: polycystic ovary Z84.2 Active 590408499 Problem Hyperlipidemia, mixed E78.2 Active 389144183 Problem Chronic pancreatitis K86.1 Active 103002860 ALLERGIES Substance Reaction Event Type Date Status Penicillin V Potassium Unknown Drug Allergy Jul, Active Fentanyl Unknown Drug Allergy Jul, Active Demerol Unknown Drug Allergy Jul, Active SOCIAL HISTORY Never Assessed PLAN OF CARE Activity Details Follow Up 2 Weeks Reason:f/u sinusitis VITAL SIGNS Height 62 in 2016-07-25 Weight 252.8 lbs 2016-07-25 Temperature 97.8 degrees Fahrenheit 2016-07-25 Heart Rate 70 bpm 2016-07-25 Respiratory Rate 18 2016-07-25 BMI 46.23 kg/m2 2016-07-25 Blood pressure systolic 124 mmHg 2016-07-25 Blood pressure diastolic 75 mmHg 2016-07-25 MEDICATIONS Medication Instructions Dosage Frequency Start Date End Date Duration Status Ibuprofen 800 MG Orally Three times a day take 1 tablet (800 mg) by oral route 3 times per day with food 8h Mar, 30 days Active Ondansetron HCl 8 mg 1 tablet by Oral route every 8 hours PRN Jul, Active Prozac 60 mg Orally Once a day 3 tablets 24h Active Estradiol 2 MG Orally Once a day 1.5 tablet by Oral route 1 time per day 24h Apr, Active Estrogens Conjugated Active Doxycycline Hyclate 100 mg Orally every 12 hrs 1 tablet 12h Jul, Jul, 5 day(s) Active Albuterol Sulfate (2.5 MG/3ML) 0.083% Inhalation Three times a day 3 ml 8h Jun, Active Zofran 8 MG Orally Once a day 1 tablet 24h Active Hydrocodone-Acetaminophen 5-325 MG Orally every 6 hrs 1 tablet as needed 6h Active Ropinirole HCl 4 MG Active Benadryl 25 MG Orally every 6 hrs 1-2 capsule as needed 6h Active RESULTS Name Result Date Reference Range MONO TEST (IN HOUSE) 2016-07-25 RESULTS negative Control + Lot # [id number] Exp date 02/14/2018 TSH 2016-07-25 TSH 2.610 0.450-4.500 CBC 2016-07-25 WBC 8.5 3.4-10.8 RBC 4.46 3.77-5.28 Hemoglobin 12.5 11.1-15.9 Hematocrit 37.6 34.0-46.6 MCV 84 79-97 MCH 28.0 26.6-33.0 MCHC 33.2 31.5-35.7 RDW 14.2 12.3-15.4 Platelets 298 150-379 Neutrophils 64 Lymphs 30 Monocytes 4 Eos 2 Basos 0 Neutrophils (Absolute) 5.4 1.4-7.0 Lymphs (Absolute) 2.6 0.7-3.1 Monocytes(Absolute) 0.4 0.1-0.9 Eos (Absolute) 0.2 0.0-0.4 Baso (Absolute) 0.0 0.0-0.2 Immature Granulocytes 0 Immature Grans (Abs) 0.0 0.0-0.1 CMP 2016-07-25 Glucose, Serum 84 65-99 BUN 10 6-20 Creatinine, Serum 0.61 0.57-1.00 eGFR If NonAfricn Am 120 >59 eGFR If Africn Am 139 >59 BUN/Creatinine Ratio 16 8-20 Sodium, Serum 141 134-144 Potassium, Serum 4.3 3.5-5.2 Chloride, Serum 101 96-106 Carbon Dioxide, Total 26 18-29 Calcium, Serum 9.2 8.7-10.2 Protein, Total, Serum 6.7 6.0-8.5 Albumin, Serum 4.1 3.5-5.5 Globulin, Total 2.6 1.5-4.5 A/G Ratio 1.6 1.1-2.5 Bilirubin, Total 0.2 0.0-1.2 Alkaline Phosphatase, S 58 39-117 AST (SGOT) 21 0-40 ALT (SGPT) 14 0-32 Xray : Chest (IN HOUSE) 2016-07-25 PROCEDURES Procedure Date Ordered Result Body Site HETEROPHILE ANTIBODIES Jul 25, 2016 LAB NOT BILL[facility] BY [facility] Jul 25, 2016 FQ VISIT ESTABLISHED PATIENT Jul 25, 2016 CHEST X-RAY Jul 25, 2016 VENIPUNCT, ROUTINE* Jul 25, 2016 IMMUNIZATIONS No Known Immunizations MEDICAL (GENERAL) HISTORY Type Description Date Medical History asthma Medical History gastrointestinal disorder- chronic pancreatitis, chronic constipation, gastritis Medical History chronic abdominal pain Medical History gynecologic disoder- ovarian cysts Medical History endrocrine disorder- PCOS, hirsutism Medical History neurological disorder- mild sleep apnea (Dr. Jules), possible RLS Medical History headache syndrome Medical History psychiatric disorder--depression Medical History metabolic disorder- vitamin D deficiency Surgical History arthroscopic knee surgery- Dr Figueroa x2 Surgical History tonsillectomy and adnoidectomy Surgical History appendectomy Surgical History hysterectomy- total d/t endometriosis Dr. Baez 2012 Surgical History orthopedic surgery-coccyx removal w/ Dr Figueroa 08/2013 Surgical History cholecystectomy Surgical History Right knee scope- Dr. Gonzalez 11/2015 Surgical History right knee scope 05/2016 Surgical History abdominal cyst removed Surgical History Ovaries removed Surgical History Ts & As Hospitalization History Cellulitis-[facility] 12/20/15
[2017-03-07 09:12] LABS: BILIRUBIN,URINE NEGATIVE (NEGATIVE); KETONES,URINE NEGATIVE (NEGATIVE); LEUKOCYTE ESTERASE ,URINE 1+ (NEGATIVE); NITRITE,URINE NEGATIVE (NEGATIVE); PH,URINE 5 (5-9); PROTEIN,URINE 1+ (NEGATIVE); UROBILINOGEN,URINE NORMAL (NORMAL)
[2017-03-07 09:38] LABS: BASOPHILS % (AUTO) 0 % (0-10); EOSINOPHILS # (AUTO) 0.2 10^3/uL (0.0-0.3); EOSINOPHILS % (AUTO) 2 % (0-10); LYMPHOCYTES # (AUTO) 2.4 X 10^3 (1.0-4.0); LYMPHOCYTES % (AUTO) 28 % (12-44); MEAN CORPUSCULAR HEMOGLOBIN 28 PG (25-34); MEAN CORPUSCULAR HGB CONC 33 G/DL (32-36); MEAN CORPUSCULAR VOLUME 85 FL (80-99); MEAN PLATELET VOLUME 9.5 FL (7.4-10.4); MONOCYTES # (AUTO) 0.4 X 10^3 (0.0-1.0); MONOCYTES % (AUTO) 5 % (0-12); NEUTROPHILS # (AUTO) 5.6 X 10^3 (1.8-7.8); NEUTROPHILS % (AUTO) 65 % (42-75); PLATELET COUNT 286 10^3/uL (130-400); RED BLOOD COUNT 4.38 10^6/uL (4.35-5.85); RED CELL DISTRIBUTION WIDTH 13.2 % (10.0-14.5); WHITE BLOOD COUNT 8.7 10^3/uL (4.3-11.0)
[2017-03-07 09:48] LABS: ALANINE AMINOTRANSFERASE 21 U/L (0-55); ALBUMIN 3.7 GM/DL (3.2-4.5); ANION GAP 11 MMOL/L (5-14); ASPARTATE AMINO TRANSFERASE 44 U/L (5-34); BILIRUBIN,TOTAL 0.4 MG/DL (0.1-1.0); BLOOD UREA NITROGEN 9 MG/DL (7-18); BUN/CREATININE RATIO 13; CALCIUM 8.7 MG/DL (8.5-10.1); CARBON DIOXIDE 22 MMOL/L (21-32); CHLORIDE 105 MMOL/L (98-107); CREATININE SERUM 0.67 MG/DL (0.60-1.30); GFR ESTIMATED > 60; GLUCOSE 93 MG/DL (70-105); LIPASE 27 U/L (8-78); POTASSIUM 4.2 MMOL/L (3.6-5.0); SODIUM 138 MMOL/L (135-145); TOTAL PROTEIN 7.3 GM/DL (6.4-8.2)
--- NOTE | 2017-03-07 09:53 | Diagnostic Imaging Report ---
PA and lateral views of the chest Indication: Right upper: Pain Findings: The lungs are clear. The heart size is normal. There is no effusion or pneumothorax The mediastinum and delaney appear unremarkable. Impression: Unremarkable study. Dictated by: Dictated on workstation # [id number]
--- NOTE | 2017-03-07 09:56 | Diagnostic Imaging Report ---
EXAMINATION: Upright and supine views of the abdomen. INDICATION: Right upper quadrant pain. FINDINGS: There is no pneumoperitoneum. No dilated bowel loops or significant air-fluid levels seen. Surgical clips in the upper right and lower right side of the abdomen seen. Small amounts of fecal material seen in the colon. No suspicious calcification seen. IMPRESSION: No acute process. Dictated by: Dictated on workstation # [id number]
--- NOTE | 2017-03-07 10:10 | ED Abdominal Pain ---
General Chief Complaint: Abdominal/GI Problems Stated Complaint: ABD PAIN Nursing Triage Note: Ambulatory to ED with reports of right upper quadrant abdominal pain and oily stools since yesterday. Patient reports nausea but denies vomiting, diarrhea or constipation. Hx chronic pancreatitis. Sepsis Screen: No Definite Risk Source of Information: Patient Exam Limitations: No Limitations History of Present Illness Time Seen By Provider: 08:47 Initial Comments This 31-year-old young lady presents to emergency room with complaints of right upper quadrant pain since yesterday. She has pain with movement and deep inspiration. Her right upper quadrant is tender to palpation both over the abdomen and the costal margin. She has had some URI symptoms with runny nose but denies cough. Pain has been worsening since yesterday and is rated as 7/ 10. She is nauseated without vomiting. She has had some mucousy or oily stool. Her last bowel movement was yesterday. She denies fever but has had some diaphoresis. She denies any urinary changes. She is status post cholecystectomy. Allergies and Home Medications Allergies Coded Allergies: meperidine (Verified Allergy, Unknown, 05/23/16) penicillin G (Verified Allergy, Unknown, 05/23/16) Home Medications Diphenhydramine HCl 25 Mg Capsule, 25-50 MG PO Q6H PRN for ALLERGIES, (Reported) Estradiol 2 Mg Tablet, 3 MG PO HS, (Reported) TAKES 1 & 1/2 (2MG) TABLETS Fluoxetine HCl 20 Mg Capsule, 60 MG PO HS, (Reported) TAKES 3 (20MG) CAPSULES Hydrocodone/Acetaminophen 1 Each Tablet, 1 EACH PO Q6H PRN for PAIN, #20 Prescribed by: IZABELA MAC on 03/07/17 1221 Ibuprofen 800 Mg Tablet, 800 MG PO Q8H PRN for PAIN, (Reported) Mupirocin 22 Gm Oint...g., 22 GM TP BID for 7 Days, #1 Ref 0 Prescribed by: MAKAYLA HAWKINS on 02/21/17 0701 Ropinirole HCl 2 Mg Tablet, 2 MG PO HS, (Reported) Sulfamethoxazole/Trimethoprim 1 Each Tablet, 1 EACH PO BID for 10 Days, #20 Ref 0 Prescribed by: MAKAYLA HAWKINS on 02/21/17 0701 Review of Systems Constitutional: see HPI, diaphoresis EENTM: No Symptoms Reported Respiratory: See HPI Cardiovascular: No Symptoms Reported Gastrointestinal: See HPI Genitourinary: No Symptoms Reported Musculoskeletal: no symptoms reported Skin: no symptoms reported Psychiatric/Neurological: No Symptoms Reported Endocrine: No Symptoms Reported Past Yjinrkm-Hsikyc-Zxevgr Hx Patient Social History Alcohol Use: Denies Use Recreational Drug Use: No Smoking Status: Never a Smoker 2nd Hand Smoke Exposure: No Recent Foreign Travel: No Contact w/Someone Who Travel: No Recent Infectious Disease Expo: No Recent Hopitalizations: No Physical Abuse: No Sexual Abuse: No Immunizations Up To Date Tetanus Booster (TDap): Unknown Date of Pneumonia Vaccine: May 17, 2012 Date of Influenza Vaccine: Jul 03, 2012 Seasonal Allergies Seasonal Allergies: Yes (MILD) Surgeries History of Surgeries: Yes (R KNEE SCOPE X4 L X2, NASAL FX, EGD/COLONOSCOPY, COCCYX REMOVAL,) Surgeries: Abdominal, Adenoidectomy, Appendectomy, Gallbladder, 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, Orthopedic, Tonsillectomy Respiratory History of Respiratory Disorde: Yes (HASNT USED INHALER IN 4YRS) Respiratory Disorders: Asthma Currently Using CPAP: No Currently Using BIPAP: No Cardiovascular History of Cardiac Disorders: No Neurological History of Neurological Disord: Yes (restless leg syndrome) Neurological Disorders: Headaches /Migraines 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 System Hx 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: Yes (HX ENDOMETRIOSIS ) Sexually Transmitted Disease: No HIV/AIDS: No 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, 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 Genitourinary History of Genitourinary Disor: No Genitourinary Disorders: UTI-Chronic Gastrointestinal History of Gastrointestinal Di: Yes (ENLARGED LIVER) Gastrointestinal Disorders: Pancreatitis, Polyps Musculoskeletal History of Musculoskeletal Dis: Yes (COCCYX-REPAIRED, MAY HAVE SIGNS OF ARTHRITIS) Musculoskeletal Disorders: Chronic Back Pain Endocrine History of Endocrine Disorders: No HEENT History of HEENT Disorders: No Loss of Vision: Denies Hearing Impairment: Denies Cancer History of Cancer: No Psychosocial History of Psychiatric Problem: Yes Behavioral Health Disorders: Anxiety, Depression Suicide Risk Score: 0 Integumentary History of Skin or Integumenta: No Skin/Integumentary Disorders: Herpes Blood Transfusions History of Blood Disorders: No Adverse Reaction to a Blood Tr: No Family Medical History Significant Family History: Cancer, Diabetes, Hypertension Family Medial History: Cardiovascular disease 19 FATHER Completed stroke 19 FATHER Diabetes mellitus 19 FATHER Hypercholesterolemia 19 FATHER 19 MOTHER Hypertension 19 FATHER 19 MOTHER Neoplasm 19 MOTHER Psychosocial problem 19 FATHER 19 MOTHER Physical Exam Vital Signs VS - Last 72 Hours, by Label 03/07/17 03/07/17 09:00 10:15 Temp 98.6 98.6 Pulse 73 Resp 16 B/P (MAP) 151/93 Pulse Ox 96 O2 Delivery Room Air Capillary Refill : Less Than 3 Seconds General Appearance: WD/WN, mild distress HEENT: PERRL/EOMI, normal ENT inspection Respiratory: lungs clear, normal breath sounds, no respiratory distress, no accessory muscle use Cardiovascular: regular rate, rhythm, no edema, no murmur Gastrointestinal: soft, abnormal bowel sounds (present but decreased), tenderness (tenderness in the right upper quadrant and right flank. 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, no motor/sensory deficits, alert, normal mood/affect, oriented x 3 Skin: normal color, warm/dry Progress/Results/Core Measures Results/Orders Lab Results Laboratory Tests Test 03/07/17 09:00 03/07/17 09:25 Range/Units Urine Color YELLOW Urine Clarity VERY CLOUDY H Urine pH 5 5-9 Urine Specific [place] 1.020 1.016-1.022 Urine Protein 1+ H NEGATIVE Urine Glucose (UA) NEGATIVE NEGATIVE Urine Ketones NEGATIVE NEGATIVE Urine Nitrite NEGATIVE NEGATIVE Urine Bilirubin NEGATIVE NEGATIVE Urine Urobilinogen NORMAL NORMAL MG/DL Urine Leukocyte Esterase 1+ H NEGATIVE Urine RBC (Auto) NEGATIVE NEGATIVE Urine RBC NONE /HPF Urine WBC 2-5 /HPF Urine Squamous Epithelial Cells 10-25 H /HPF Urine Crystals NONE /LPF Urine Bacteria FEW H /HPF Urine Casts NONE /LPF Urine Mucus NEGATIVE /LPF Urine Culture Indicated YES White Blood Count 8.7 4.3-11.0 10^3/uL Red Blood Count 4.38 4.35-5.85 10^6/uL Hemoglobin 12.3 11.5-16.0 G/DL Hematocrit 37 35-52 % Mean Corpuscular Volume 85 80-99 FL Mean Corpuscular Hemoglobin 28 25-34 PG Mean Corpuscular Hemoglobin Concent 33 32-36 G/DL Red Cell Distribution Width 13.2 10.0-14.5 % Platelet Count 286 130-400 10^3/uL Mean Platelet Volume 9.5 7.4-10.4 FL Neutrophils (%) (Auto) 65 42-75 % Lymphocytes (%) (Auto) 28 12-44 % Monocytes (%) (Auto) 5 0-12 % Eosinophils (%) (Auto) 2 0-10 % Basophils (%) (Auto) 0 0-10 % Neutrophils # (Auto) 5.6 1.8-7.8 X 10^3 Lymphocytes # (Auto) 2.4 1.0-4.0 X 10^3 Monocytes # (Auto) 0.4 0.0-1.0 X 10^3 Eosinophils # (Auto) 0.2 0.0-0.3 10^3/uL Basophils # (Auto) 0.0 0.0-0.1 10^3/uL D-Dimer 0.34 0.00-0.49 UG/ML Sodium Level 138 135-145 MMOL/L Potassium Level 4.2 3.6-5.0 MMOL/L Chloride Level 105 98-107 MMOL/L Carbon Dioxide Level 22 21-32 MMOL/L Anion Gap 11 5-14 MMOL/L Blood Urea Nitrogen 9 7-18 MG/DL Creatinine 0.67 0.60-1.30 MG/DL Estimat Glomerular Filtration Rate > 60 BUN/Creatinine Ratio 13 Glucose Level 93 70-105 MG/DL Calcium Level 8.7 8.5-10.1 MG/DL Total Bilirubin 0.4 0.1-1.0 MG/DL Aspartate Amino Transf (AST/SGOT) 44 H 5-34 U/L Alanine Aminotransferase (ALT/SGPT) 21 0-55 U/L Alkaline Phosphatase 55 40-136 U/L Total Protein 7.3 6.4-8.2 GM/DL Albumin 3.7 3.2-4.5 GM/DL Lipase 27 8-78 U/L My Orders Orders - IZABELA SHAH MD Ua Culture If Indicated (03/07/17 08:47) Cbc With Automated Diff (03/07/17 09:09) Comprehensive Metabolic Panel (03/07/17 09:09) Lipase (03/07/17 09:09) Saline Lock/Iv-Start (03/07/17 09:09) Chest Pa/Lat (2 View) (03/07/17 09:09) Abdomen, Flat & Upright/Decub (03/07/17 09:09) Urine Culture (03/07/17 09:00) Fentanyl Injection (Sublimaze Injection (03/07/17 10:15) Ct Abdomen/Pelvis W (03/07/17 10:11) Iohexol Injection (Omnipaque 350 Mg/Ml 1 (03/07/17 10:15) Ns (Ivpb) (Sodium Chloride 0.9% Ivpb Bag (03/07/17 10:15) Pharmacy Communication (Pharmacy Communi (03/07/17 10:15) Fibrin Degradation Products (03/07/17 11:04) Ketorolac Injection (Toradol Injection) (03/07/17 12:15) Medications Given in ED Current Medications Medications Dose Ordered Sig/Neal Route Start Time Stop Time Status Last Admin Dose Admin Fentanyl Citrate 50 mcg ONCE ONCE IVP 03/07/17 10:15 03/07/17 10:16 DC 03/07/17 10:15 50 MCG Iohexol 100 ml ONCE ONCE IV 03/07/17 10:15 03/07/17 10:16 DC 03/07/17 10:30 100 ML Sodium Chloride 100 ml ONCE ONCE IV 03/07/17 10:15 03/07/17 10:16 DC 03/07/17 10:30 80 ML Vital Signs/I&O Vital Sign - Last 12Hours 03/07/17 03/07/17 09:00 10:15 Temp 98.6 98.6 Pulse 73 Resp 16 B/P (MAP) 151/93 Pulse Ox 96 O2 Delivery Room Air Blood Pressure Mean: 112 Progress Note #1: Time: 10:09 Progress Note Patient's labs and x-rays were unremarkable. However, she is still in significant pain. She would now like a dose of fentanyl and would like to proceed with CT scan for further workup. Progress Note #2: Progress Note CT scan revealed hepatic steatosis but otherwise no pathology to explain the right upper quadrant pain. There was however an incidental finding of a 3 cm left renal mass. This was discussed with Dr. Redman who will be happy to see the patient to arrange referrals for biopsy or surgery. The mass was discussed with Dr. Sweet who stated it is concerning for renal cell carcinoma. Findings were communicated with patient and the importance of close follow-up was discussed. Patient plans to see Dr. Redman and will call for an appointment. Dr. Gibbs was also notified of the finding and patient's condition. Patient was given Toradol prior to dismissal for treatment of her pain. Diagnostic Imaging Diagonstic Imaging: Xray Plain Films/CT/US/NM/MRI: chest Comments Chest x-ray viewed by me and report reviewed. See report below: NAME: JAYLYN DELGADO [facility] REC#: [id number] PT STATUS: [facility] ER : 1985 PHYSICIAN: IZABELA SHAH MD ADMIT DATE: 03/07/17/ER Signed Date of Exam: 03/07/17 CHEST PA/LAT (2 VIEW) PA and lateral views of the chest Indication: Right upper: Pain Findings: The lungs are clear. The heart size is normal. There is no effusion or pneumothorax The mediastinum and delaney appear unremarkable. Impression: Unremarkable study. Dictated by: Dictated on workstation # [id number] Dict: 03/07/1749 Trans: 03/07/17 0951 Interpreted by: ANAHY SWEET MD Electronically signed by: ANAHY SWEET MD 03/07/17 0951 Diagonstic Imaging: Xray Plain Films/CT/US/NM/MRI: abdomen, pelvis Comments X-ray abdomen and pelvis viewed by me and report reviewed. See report below: NAME: JAYLYN DELGADO [facility] REC#: [id number] PT STATUS: [facility] ER : 1985 PHYSICIAN: IZABELA SHAH MD ADMIT DATE: 03/07/17/ER Signed Date of Exam: 03/07/17 ABDOMEN, FLAT & UPRIGHT/DECUB EXAMINATION: Upright and supine views of the abdomen. INDICATION: Right upper quadrant pain. FINDINGS: There is no pneumoperitoneum. No dilated bowel loops or significant air-fluid levels seen. Surgical clips in the upper right and lower right side of the abdomen seen. Small amounts of fecal material seen in the colon. No suspicious calcification seen. IMPRESSION: No acute process. Dictated by: Dictated on workstation # [id number] Dict: 03/07/1751 Trans: 03/07/17 1249 Interpreted by: ANAHY SWEET MD Electronically signed by: ANAHY SWEET MD 03/07/17 1249 Diagonstic Imaging: CT Plain Films/CT/US/NM/MRI: abdomen, pelvis Comments CT abdomen and pelvis viewed by me and report reviewed. Discussed with Dr. Sweet. See report below: NAME: JAYLYN DELGADO [facility] REC#: [id number] PT STATUS: [facility] ER : 1985 PHYSICIAN: IZABELA SHAH MD ADMIT DATE: 03/07/17/ER Signed Date of Exam: 03/07/17 CT ABDOMEN/PELVIS W PROCEDURE: CT abdomen and pelvis with contrast. TECHNIQUE: Multiple contiguous axial images were obtained through the abdomen and pelvis after administration of intravenous contrast. INDICATION: Right upper quadrant pain. 100 mL of Omnipaque 350 is administered intravenously. FINDINGS: The lung bases demonstrate minimal atelectasis in the left lung base and hyperlucency in the subsegment within the right middle lobe which is suggestive of air-trapping. The liver is alone in density compatible with steatosis in a diffuse fashion. Cholecystectomy clips are seen. The spleen, the adrenal glands, and the pancreas appear unremarkable. In the left kidney there is a 3.1 x 2.6 x 2.6 cm mass in the upper pole projecting into the upper aspect of the left renal sinus. This is new when compared to 11/01/2012 CT scan. It is hyperenhancing, highly suspicious for renal cell carcinoma. The left renal vein is patent. No lymphadenopathy is seen. The right kidney appears unremarkable. No hydronephrosis. The abdominal aorta is normal in caliber. There is suggestion of prior appendectomy and hysterectomy. There is no bowel obstruction. No significant free fluid or fluid collection in the abdomen or pelvis is seen. The osseous fractures appear grossly unremarkable. IMPRESSION: 1. A 3.1 cm enhancing mass is seen in the upper pole of the left kidney projecting into the upper aspect of the renal sinus, highly suggestive of renal cell carcinoma. No renal vein tumor thrombus or regional lymphadenopathy is seen. 2. Hepatic steatosis. Findings of a left renal mass was called to Dr. Shah by Dr. Sweet at time of dictation. Dictated by: Dictated on workstation # [id number] Dict: 03/07/17 9454 Trans: 03/07/17 1249 Interpreted by: ANAHY SWEET MD Electronically signed by: ANAHY SWEET MD 03/07/17 1249 Departure Impression Impression: Primary Impression: Right upper quadrant pain Additional Impressions: Left renal mass Hepatic steatosis Nausea Disposition: HOME, SELF-CARE Condition: Improved Departure-Patient Inst. Decision time for Depature: 12:05 Referrals: CARMEN GIBBS MD (PCP/Family) Primary Care Physician RICK REDMAN MD Patient Instructions: Acute Abdomen (Belly Pain) Add. Discharge Instructions: You have a mass in the left kidney that needs further evaluation. Prompt follow -up is necessary. Please call Dr. Redman or the urologist of your choice today to schedule follow-up. Follow-up with Dr. Gibbs as soon as possible as well. Take your Zofran as previously prescribed for nausea and vomiting. Use your pain medications as prescribed. Return to the ER if symptoms worsen or you develop new concerning symptoms. Work toward slow weight loss for treatment of your fatty liver disease. Please discuss medications and weight management strategies with Dr. Gibbs. Avoid alcohol consumption. Take no more than 2000 mg of Tylenol (acetaminophen) in a 24-hour period, including the Tylenol contained within your pain medication. All discharge instructions reviewed with patient and/or family. Voiced understanding. Scripts Hydrocodone/Acetaminophen (Hydrocodon -Acetaminophen 5-325) 1 Each Tablet 1 EACH PO Q6H Y for PAIN, #20 TAB Prov: IZABELA SHAH MD 03/07/17 Copy Copies To 1: CARMEN GIBBS MD Copies To 2: RICK REDMAN MD, JOSHUA T MD Mar 07, 2017 10:10
[2017-03-07] MEDS ORDERED: NS 100 ML (IVPB) BAG IV ONE (10:15)
[2017-03-07] MEDS ORDERED: fentaNYL INJECTION 100 MCG/2 ML AMP IVP ONE (10:15)
[2017-03-07] MEDS ORDERED: IOHEXOL 350 MG/ML 100 ML (OMNIPAQUE 350) VIAL IV ONE (10:15)
--- NOTE | 2017-03-07 11:34 | Diagnostic Imaging Report ---
PROCEDURE: CT abdomen and pelvis with contrast. TECHNIQUE: Multiple contiguous axial images were obtained through the abdomen and pelvis after administration of intravenous contrast. INDICATION: Right upper quadrant pain. 100 mL of Omnipaque 350 is administered intravenously. FINDINGS: The lung bases demonstrate minimal atelectasis in the left lung base and hyperlucency in the subsegment within the right middle lobe which is suggestive of air-trapping. The liver is alone in density compatible with steatosis in a diffuse fashion. Cholecystectomy clips are seen. The spleen, the adrenal glands, and the pancreas appear unremarkable. In the left kidney there is a 3.1 x 2.6 x 2.6 cm mass in the upper pole projecting into the upper aspect of the left renal sinus. This is new when compared to 11/01/2012 CT scan. It is hyperenhancing, highly suspicious for renal cell carcinoma. The left renal vein is patent. No lymphadenopathy is seen. The right kidney appears unremarkable. No hydronephrosis. The abdominal aorta is normal in caliber. There is suggestion of prior appendectomy and hysterectomy. There is no bowel obstruction. No significant free fluid or fluid collection in the abdomen or pelvis is seen. The osseous fractures appear grossly unremarkable. IMPRESSION: 1. A 3.1 cm enhancing mass is seen in the upper pole of the left kidney projecting into the upper aspect of the renal sinus, highly suggestive of renal cell carcinoma. No renal vein tumor thrombus or regional lymphadenopathy is seen. 2. Hepatic steatosis. Findings of a left renal mass was called to Dr. Shah by Dr. Sweet at time of dictation. Dictated by: Dictated on workstation # [id number]
[2017-03-07] MEDS ORDERED: KETOROLAC 30 MG/ML VIAL IVP ONE (12:15)
[2017-03-07] MEDS ORDERED: HYDR-3812 PO (12:21)
[2017-03-07 12:32] VITALS: BP 144/79
== END 2017-03-07 12:32 | disposition home or self-care (01) ==
LOC: EDUNIT# 08:43 → ER 08:45
DX: K76.0 Fatty (change of) liver, not elsewhere classified (principal); R16.0 Hepatomegaly, not elsewhere classified; F41.9 Anxiety disorder, unspecified; F32.9 Major depressive disorder, single episode, unspecified; G43.909 Migraine, unspecified, not intractable, without status migrainosus; J45.909 Unspecified asthma, uncomplicated; Z90.89 Acquired absence of other organs; Z90.49 Acquired absence of other specified parts of digestive tract; Z90.710 Acquired absence of both cervix and uterus; Z80.9 Family history of malignant neoplasm, unspecified; Z82.49 Family history of ischemic heart disease and other diseases of the circulatory system
CPT/HCPCS: 36415; 71020; 74020; 74177; 80053; 81000; 83690; 85025; 85379; 87088; 96374

== ENCOUNTER 2017-03-14 00:15 | Emergency (ER) | payer MEDICARE, MEDICAID ==
[~2017-03-14] VITALS: Ht 160 cm; Wt 108.9 kg
--- OUTSIDE RECORDS SUMMARY | 2017-03-14 00:22 | XMS REPORT | Encounter Summary ---
Author Author [facility] Organization [facility] Address Unknown Phone Unavailable Care Team Providers Care Powdered Sugar Supervisor Name Role Phone PCP Unavailable Encounter Details Date Type Department Care Team Description 03/13/2017 Ancillary Rad Outpatient, Radiologist Diagnosis unknown Orders [address] [place], [place] [id number] Social History Tobacco Use Types Packs/Day Years Used Date Never Smoker Alcohol Use Drinks/Week oz/Week Comments Yes Does not consume alcohol in excess. Sex Assigned at Date Recorded Not on file as of this encounter Plan of Treatment Not on fileas of this encounter Results * CT ABD/PEL EXTERNAL IMAGING (03/07/2017) Narrative This order has been auto finalized and does not contain a result. * CT NECK EXTERNAL IMAGING (08/28/2016) Narrative This order has been auto finalized and does not contain a result. in this encounter Visit Diagnoses Diagnosis Diagnosis unknown Other unknown and unspecified cause of morbidity or mortality in this encounter
--- OUTSIDE RECORDS SUMMARY | 2017-03-14 00:22 | XMS REPORT | Continuity of Care Document ---
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
--- OUTSIDE RECORDS SUMMARY | 2017-03-14 00:22 | XMS REPORT | Encounter Summary ---
Author Author [facility] Organization [facility] Address Unknown Phone Unavailable Care Team Providers Care Facilities Operator Name Role Phone PCP Unavailable Encounter Details Date Type Department Care Team Description 03/07/2017 Hospital [facility] Arrived Encounter Hospital Radiology [address] [place] [address] Social History Tobacco Use Types Packs/Day Years Used Date Never Smoker Alcohol Use Drinks/Week oz/Week Comments Yes Does not consume alcohol in excess. Sex Assigned at Date Recorded Not on file as of this encounter Medications at Time of Discharge Medication Sig. Disp. Refills Start Date End Date busPIRone (BUSPAR) 5 mg Take 5 mg by mouth three tablet times daily. DIPHENHYDRAMINE HCL Take by mouth as Needed. (BENADRYL ALLERGY PO) estradiol (ESTRACE) 1 mg Take 1 mg by mouth daily. tablet hydrocodone-acetaminophen Take 1 Tab by mouth at (NORCO) 5-325 mg per bedtime daily. tablet ibuprofen (MOTRIN) 800 mg Take 800 mg by mouth tablet every 6 hours as needed for Pain. hbfeub-rtjbuwmm-qsrikia Take 80,000 Units by 240 Cap 6 01/31/2015 (ZENPEP) 40,000-136,000- mouth three times daily 218,000 unit with meals. (take 2 caps cpDRIndications: Other with meals, 1 cap with chronic pancreatitis snacks. (HCC) omeprazole DR(+) Take 1 Cap by mouth 90 Cap 1 02/03/2015 (PRILOSEC) 40 mg capsule daily. Take 30 minutes before morning meal. ondansetron (ZOFRAN ODT) DISSOLVE ONE TABLET IN 60 Tab 0 12/25/2016 8 mg rapid dissolve MOUTH EVERY 8 HOURS tablet NEEDED FOR NAUSEA; NEED GI OFFICE VISIT FOR ANY ADDITIONAL REFILLS ondansetron (ZOFRAN) 4 mg Take 1 Tab by mouth three 60 Tab 1 2014 tablet times daily as needed for Nausea. other 1 Dose daily. medicationIndications: Indications: One Source One Source hair and nail hair and nail vitamin vitamin pravastatin (PRAVACHOL) Take 40 mg by mouth 40 mg tablet daily. prazosin (MINIPRESS) 2 mg Take 2 mg by mouth at capsule bedtime daily. VIT Take by mouth. W-CA,FE,FA(<1 MG) ( VITAMIN PO) rOPINIRole (REQUIP) 2 mg Take 2 mg by mouth at tablet bedtime daily. scopolamine Apply 1 Patch to top of 30 Patch 1 11/25/2014 (TRANSDERM-SCOP) 1.5 mg skin as directed every 72 patch hours. Do not use more than one patch in 72 hours. traMADol (ULTRAM) 50 mg Take 1 Tab by mouth twice 60 Tab 1 07/18/2015 tablet daily. vortioxetine (BRINTELLIX) Take 10 mg by mouth 10 mg tab daily. as of this encounter Plan of Treatment Not on fileas of this encounter Results * CT ABD/PEL EXTERNAL IMAGING (03/07/2017) Narrative This order has been auto finalized and does not contain a result. in this encounter Visit Diagnoses Diagnosis Diagnosis unknown Other unknown and unspecified cause of morbidity or mortality in this encounter
--- OUTSIDE RECORDS SUMMARY | 2017-03-14 00:22 | XMS REPORT | Clinical Summary ---
Author Author [facility] Organization [facility] Address Unknown Phone Unavailable Care Team Providers Care Curing Supervisor Name Role Phone PCP Unavailable Source Comments Some departments are not documenting in the electronic medical record. If you do not see the information that you expected, contact Release of Information in the Health Information Management department at [phone] for further assistance in locating additional records.[facility] Allergies Active Allergy Reactions Severity Noted Date [...] times daily as needed for 15 Nausea. lcnost-yqrynleu-lixyndl Take 80,000 Units by 240 Cap 6 [...] Encounters Date Type Specialty Care Team Description 03/13/2017 Ancillary Radiology Outpatient, Radiologist Diagnosis unknown Orders 03/07/2017 [facility] Arrived Encounter 12/25/2016 Refill Gastroenterology Jessica Valera ARNP from [...] CANCER SCREENING 2014 INFLUENZA VACCINE 03/17/2017 Results * CT ABD/PEL EXTERNAL IMAGING (03/07/2017) Narrative This order has been auto finalized and does not contain a result. from Last 3 Months
--- OUTSIDE RECORDS SUMMARY | 2017-03-14 00:22 | XMS REPORT | Encounter Summary ---
Author Author [facility] Organization [facility] Address Unknown Phone Unavailable Care Team Providers Care Campus Rep Name Role Phone PCP Unavailable Reason for Visit * Reason Comments Medication Refill Encounter Details Date Type Department Care Team Description 12/25/2016 Refill [facility] Jessica Valera ARNP Physicians - Internal [address] [facility] [place] [address] [facility] [place] [address] OFFICE BLDG [phone] [address] [place] [address] Social History Tobacco Use Types Packs/Day Years Used Date Never Smoker Alcohol Use Drinks/Week oz/Week Comments Yes Does not consume alcohol in excess. Sex Assigned at Date Recorded Not on file as of this encounter Plan of Treatment Not on fileas of this encounter Visit Diagnoses Not on filein this encounter
--- OUTSIDE RECORDS SUMMARY | 2017-03-14 00:29 | XMS REPORT ---
Author Author CARMEN GIBBS Organization [facility] Address [address] [place] [address] Care Team Providers Care Welfare Case Worker Name Role Phone SAICORTNEY KOENIGHANY Unavailable PROBLEMS Type Condition ICD9-CM Code OBX54-EO Code Onset Dates Condition Status SNOMED Code Problem Chronic pancreatitis, unspecified pancreatitis type K86.1 Active 010502877 Problem Polydipsia R63.1 Active 01951729 Problem Asthma J45.909 Active 769430599 Problem Excessive thirst R63.1 Active 24346224 Problem Chronic post-traumatic stress disorder (PTSD) F43.12 Active 812789240 Problem Restless leg syndrome G25.81 Active 59480345 Problem Atelectasis J98.11 Active 68916207 Problem Generalized social phobia F40.11 Active 05950297 Problem Trichotillomania F63.3 Active 28875317 Problem Morbid (severe) obesity due to excess calories E66.01 Active 282946902 Problem Hirsuties L68.0 Active 565072661 Problem Chronic tension-type headache, intractable G44.221 Active 584582655 Problem FH: polycystic ovary Z84.2 Active 736970482 Problem Hyperlipidemia, mixed E78.2 Active 878526261 Problem Chronic pancreatitis K86.1 Active 885642553 ALLERGIES No Information SOCIAL HISTORY Never Assessed PLAN OF CARE VITAL SIGNS MEDICATIONS Unknown Medications RESULTS Name Result Date Reference Range CT Scan : Chest w/o Contrast 2016-08-16 PROCEDURES No Known procedures IMMUNIZATIONS No Known Immunizations MEDICAL (GENERAL) HISTORY [...] deficiency Surgical History arthroscopic knee surgery- Dr Henry blair Surgical History tonsillectomy and adnoidectomy Surgical History appendectomy Surgical History hysterectomy- total d/t endometriosis Dr. Baez 2012 Surgical History orthopedic surgery-coccyx removal w/ Dr Figueroa 08/2013 Surgical History cholecystectomy Surgical History Right knee scope- Dr. Gonzalez 11/2015 Surgical History right knee scope 05/2016 Surgical History abdominal cyst removed Surgical History Ovaries removed Surgical History Ts & As Hospitalization History Cellulitis-[facility] 12/20/15
[2017-03-14] MEDS ORDERED: NS IV 1000 ML 1,000 ML IV ONE (02:25)
[2017-03-14] MEDS ORDERED: fentaNYL INJECTION 100 MCG/2 ML AMP IVP STA (02:35)
[2017-03-14 02:40] LABS: BASOPHILS % (AUTO) 0 % (0-10); EOSINOPHILS # (AUTO) 0.2 10^3/uL (0.0-0.3); EOSINOPHILS % (AUTO) 2 % (0-10); LYMPHOCYTES # (AUTO) 3.7 X 10^3 (1.0-4.0); LYMPHOCYTES % (AUTO) 34 % (12-44); MEAN CORPUSCULAR HEMOGLOBIN 28 PG (25-34); MEAN CORPUSCULAR HGB CONC 33 G/DL (32-36); MEAN CORPUSCULAR VOLUME 85 FL (80-99); MEAN PLATELET VOLUME 9.2 FL (7.4-10.4); MONOCYTES # (AUTO) 0.6 X 10^3 (0.0-1.0); MONOCYTES % (AUTO) 5 % (0-12); NEUTROPHILS # (AUTO) 6.5 X 10^3 (1.8-7.8); NEUTROPHILS % (AUTO) 59 % (42-75); PLATELET COUNT 303 10^3/uL (130-400); RED BLOOD COUNT 4.51 10^6/uL (4.35-5.85); RED CELL DISTRIBUTION WIDTH 13.2 % (10.0-14.5)
--- NOTE | 2017-03-14 02:45 | ED Abdominal Pain ---
General Chief Complaint: Abdominal/GI Problems Stated Complaint: ABD PAIN Nursing Triage Note: PT STATED WAS SEEN TWO DAYS AGO FOR ABDOMINAL PAIN, VERBALIZED WORSE TODAY. Sepsis Screen: No Definite Risk Source of Information: Patient Exam Limitations: No Limitations History of Present Illness Time Seen By Provider: 02:29 Initial Comments Here with complaint of central abdominal pain that is quite severe especially in the upper quadrants. Mostly in the left upper quadrant. Started last week in the right upper quadrant and started moving across. Was seen couple days ago and has worsened since. States that she can't eat or drink anything without nausea and vomiting and due to significant pain. Timing/Duration: 2-3 Days Severity/Quality: Moderate, Severe, Sharp Location: LUQ Radiation: RUQ Activities at Onset: None Modifying Factors: Improves With Analgesics, Worsens With Eating, Worsens With Movement Associated Symptoms: No Back Pain, No Chest Pain, No Fever/Chills, Nausea/ Vomiting, No Shortness of Air, No Weakness Allergies and Home Medications Allergies Coded Allergies: meperidine (Verified Allergy, Unknown, 05/23/16) penicillin G (Verified Allergy, Unknown, 05/23/16) Home Medications Diphenhydramine HCl 25 Mg Capsule, 25-50 MG PO Q6H PRN for ALLERGIES, (Reported) Estradiol 2 Mg Tablet, 3 MG PO HS, (Reported) TAKES 1 & 1/2 (2MG) TABLETS Fluoxetine HCl 20 Mg Capsule, 60 MG PO HS, (Reported) TAKES 3 (20MG) CAPSULES Hydrocodone/Acetaminophen 1 Each Tablet, 1 EACH PO Q6H PRN for PAIN, #20 Prescribed by: IZABELA MAC on 03/07/17 1221 Ibuprofen 800 Mg Tablet, 800 MG PO Q8H PRN for PAIN, (Reported) Mupirocin 22 Gm Oint...g., 22 GM TP BID for 7 Days, #1 Ref 0 Prescribed by: MAKAYLA HAWKINS on 02/21/17 0701 Ropinirole HCl 2 Mg Tablet, 2 MG PO HS, (Reported) Sulfamethoxazole/Trimethoprim 1 Each Tablet, 1 EACH PO BID for 10 Days, #20 Ref 0 Prescribed by: MAKAYLA HAWKINS on 02/21/17 0701 Review of Systems Constitutional: see HPI, No chills, No fever EENTM: No Symptoms Reported Respiratory: No Symptoms Reported Cardiovascular: No Symptoms Reported Gastrointestinal: See HPI, Abdominal Pain, Denies Diarrhea, Nausea, Vomiting Genitourinary: No Symptoms Reported Musculoskeletal: no symptoms reported Skin: no symptoms reported All Other Systems Reviewed Negative Unless Noted: Yes Past Uydebux-Maeckp-Hrruoq Hx Patient Social History Alcohol Use: Denies Use Recreational Drug Use: No Smoking Status: Unknown if Ever Smoked 2nd Hand Smoke Exposure: No Recent Foreign Travel: No Contact w/Someone Who Travel: No Recent Infectious Disease Expo: No Recent Hopitalizations: No Immunizations Up To Date Tetanus Booster (TDap): Unknown Date of Pneumonia Vaccine: May 17, 2012 Date of Influenza Vaccine: Jul 03, 2012 Seasonal Allergies Seasonal Allergies: Yes (MILD) Surgeries History of Surgeries: Yes (R KNEE SCOPE X4 L X2, NASAL FX, EGD/COLONOSCOPY, COCCYX REMOVAL,) Surgeries: Abdominal, Adenoidectomy, Appendectomy, Gallbladder, 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, Orthopedic, Tonsillectomy Respiratory History of Respiratory Disorde: Yes (HASNT USED INHALER IN 4YRS) Respiratory Disorders: Asthma Currently Using CPAP: No Currently Using BIPAP: No Cardiovascular History of Cardiac Disorders: No Neurological History of Neurological Disord: Yes (restless leg syndrome) Neurological Disorders: Headaches /Migraines 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 System Hx 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: Yes (HX ENDOMETRIOSIS ) Sexually Transmitted Disease: No HIV/AIDS: No 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, 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 Genitourinary History of Genitourinary Disor: No Genitourinary Disorders: UTI-Chronic Gastrointestinal History of Gastrointestinal Di: Yes (ENLARGED LIVER) Gastrointestinal Disorders: Pancreatitis, Polyps Musculoskeletal History of Musculoskeletal Dis: Yes (COCCYX-REPAIRED, MAY HAVE SIGNS OF ARTHRITIS) Musculoskeletal Disorders: Chronic Back Pain Endocrine History of Endocrine Disorders: No HEENT History of HEENT Disorders: No Loss of Vision: Denies Hearing Impairment: Denies Cancer History of Cancer: No Psychosocial History of Psychiatric Problem: Yes Behavioral Health Disorders: Anxiety, Depression Integumentary History of Skin or Integumenta: No Skin/Integumentary Disorders: Herpes Blood Transfusions History of Blood Disorders: No Adverse Reaction to a Blood Tr: No Reviewed Nursing Assessment Reviewed/Agree w Nursing PMH: Yes Family Medical History Significant Family History: Cancer, Diabetes, Hypertension Family Medial History: Cardiovascular disease 19 FATHER Completed stroke 19 FATHER Diabetes mellitus 19 FATHER Hypercholesterolemia 19 FATHER 19 MOTHER Hypertension 19 FATHER 19 MOTHER Neoplasm 19 MOTHER Psychosocial problem 19 FATHER 19 MOTHER Physical Exam Vital Signs VS - Last 72 Hours, by Label 03/14/17 01:57 Temp 98.0 Pulse 95 Resp 20 B/P (MAP) 14/90 O2 Delivery Room Air Capillary Refill : Less Than 3 Seconds General Appearance: WD/WN, no apparent distress HEENT: PERRL/EOMI, pharynx normal Neck: full range of motion, supple Respiratory: lungs clear, normal breath sounds Cardiovascular: regular rate, rhythm, no murmur Peripheral Pulses: 2+ Dorsalis Pedis (R), 2+ Left Dors-Pedis (L), 2+ Radial Pulses (R), 2+ Radial Pulses (L) Gastrointestinal: soft, No guarding, No rebound, tenderness (left upper quadrant) Extremities: non-tender, normal inspection Back: normal inspection, no CVA tenderness, no vertebral tenderness Neurologic/Psychiatric: alert, oriented x 3 Skin: normal color, warm/dry Progress/Results/Core Measures Results/Orders Lab Results Laboratory Tests Test 03/14/17 02:25 Range/Units White Blood Count 11.0 4.3-11.0 10^3/uL Red Blood Count 4.51 4.35-5.85 10^6/uL Hemoglobin 12.7 11.5-16.0 G/DL Hematocrit 38 35-52 % Mean Corpuscular Volume 85 80-99 FL Mean Corpuscular Hemoglobin 28 25-34 PG Mean Corpuscular Hemoglobin Concent 33 32-36 G/DL Red Cell Distribution Width 13.2 10.0-14.5 % Platelet Count 303 130-400 10^3/uL Mean Platelet Volume 9.2 7.4-10.4 FL Neutrophils (%) (Auto) 59 42-75 % Lymphocytes (%) (Auto) 34 12-44 % Monocytes (%) (Auto) 5 0-12 % Eosinophils (%) (Auto) 2 0-10 % Basophils (%) (Auto) 0 0-10 % Neutrophils # (Auto) 6.5 1.8-7.8 X 10^3 Lymphocytes # (Auto) 3.7 1.0-4.0 X 10^3 Monocytes # (Auto) 0.6 0.0-1.0 X 10^3 Eosinophils # (Auto) 0.2 0.0-0.3 10^3/uL Basophils # (Auto) 0.0 0.0-0.1 10^3/uL Urine Color YELLOW Urine Clarity CLEAR Urine pH 6 5-9 Urine Specific [place] 1.020 1.016-1.022 Urine Protein NEGATIVE NEGATIVE Urine Glucose (UA) NEGATIVE NEGATIVE Urine Ketones NEGATIVE NEGATIVE Urine Nitrite NEGATIVE NEGATIVE Urine Bilirubin NEGATIVE NEGATIVE Urine Urobilinogen NORMAL NORMAL MG/DL Urine Leukocyte Esterase NEGATIVE NEGATIVE Urine RBC (Auto) NEGATIVE NEGATIVE Urine RBC NONE /HPF Urine WBC NONE /HPF Urine Squamous Epithelial Cells 2-5 /HPF Urine Crystals NONE /LPF Urine Bacteria TRACE /HPF Urine Casts NONE /LPF Urine Mucus MODERATE H /LPF Urine Culture Indicated NO Sodium Level 141 135-145 MMOL/L Potassium Level 3.7 3.6-5.0 MMOL/L Chloride Level 107 98-107 MMOL/L Carbon Dioxide Level 22 21-32 MMOL/L Anion Gap 12 5-14 MMOL/L Blood Urea Nitrogen 10 7-18 MG/DL Creatinine 0.72 0.60-1.30 MG/DL Estimat Glomerular Filtration Rate > 60 BUN/Creatinine Ratio 14 Glucose Level 98 70-105 MG/DL Calcium Level 9.1 8.5-10.1 MG/DL Total Bilirubin 0.3 0.1-1.0 MG/DL Aspartate Amino Transf (AST/SGOT) 27 5-34 U/L Alanine Aminotransferase (ALT/SGPT) 18 0-55 U/L Alkaline Phosphatase 62 40-136 U/L Total Protein 7.8 6.4-8.2 GM/DL Albumin 4.1 3.2-4.5 GM/DL Amylase Level 48 25-125 U/L Lipase 35 8-78 U/L My Orders Orders - YUKI MARCH MD Amylase (03/14/17 02:25) Cbc With Automated Diff (03/14/17 02:25) Comprehensive Metabolic Panel (03/14/17 02:25) Lipase (03/14/17 02:25) Ua Culture If Indicated (03/14/17 02:25) Saline Lock/Iv-Start (03/14/17 02:25) Ns Iv 1000 Ml (Sodium Chloride 0.9%) (03/14/17 02:25) Fentanyl Injection (Sublimaze Injection (03/14/17 02:35) Hydromorphone Injection (Dilaudid Inject (03/14/17 04:18) Famotidine Injection (Pepcid Injection) (03/14/17 04:18) Medications Given in ED Current Medications Medications Dose Ordered Sig/Neal Route Start Time Stop Time Status Last Admin Dose Admin Sodium Chloride 1,000 ml @ 0 mls/hr Q0M ONCE IV 03/14/17 02:25 03/14/17 02:27 DC 03/14/17 02:42 999 MLS/HR Vital Signs/I&O Vital Sign - Last 12Hours 03/14/17 01:57 Temp 98.0 Pulse 95 Resp 20 B/P (MAP) 14/90 O2 Delivery Room Air Blood Pressure Mean: 65 Progress Note : Progress Note Seen and evaluated. IV, labs, and UA ordered. Normal saline 1 L bolus. Fentanyl 75 g IV ordered. Monitor patient. Labs reviewed and showed no significant abnormality. We did discuss the option of repeat CT scanning but she would like to hold off for now given the normal labs. Patient does have the mass on the left kidney concerning for renal cell carcinoma and currently is in workup. This pain may very be related to expansion of this tumor. Dilaudid 1 mg IV given and Pepcid 20 mg IV given. Monitor patient. 0610: Patient is much better. We will increase pain control at home and have her continue with her follow-up for the cancer-related concerns. Patient was also instructed to initiate Pepcid and/or omeprazole for possible stomach acid concerns. Discharged home with return precautions. Patient verbalize understanding instructions and agreement with plan. Departure Impression Impression: Primary Impression: Epigastric abdominal pain Disposition: 01 HOME, SELF-CARE Condition: Stable Departure-Patient Inst. Decision time for Depature: 06:17 Referrals: CARMEN GIBBS MD (PCP/Family) Primary Care Physician Patient Instructions: Acute Abdomen (Belly Pain), Adult (DC) Add. Discharge Instructions: All discharge instructions reviewed with patient and/or family. Voiced understanding. Keep appointments as scheduled. Follow up with your in a few days for recheck. I do recommend that he take Pepcid 20 mg once or twice daily and or omeprazole 20 mg daily as needed for stomach upset. Clear liquid diet for 24 hours and then advance as tolerated. Drink plenty of fluids. Return for worse pain, fever, vomiting, weakness, breathing problems or other concerns as needed. Scripts Hydrocodone/Acetaminophen (Hydrocodon-Acetaminoph 7.5-325) 1 Each Tablet 1 EACH PO Q6H, #20 TAB 0 Refills Prov: YUKI MARCH MD 03/14/17 YUKI MARCH MD Mar 14, 2017 02:45
[2017-03-14 02:50] LABS: BILIRUBIN,URINE NEGATIVE (NEGATIVE); KETONES,URINE NEGATIVE (NEGATIVE); LEUKOCYTE ESTERASE ,URINE NEGATIVE (NEGATIVE); NITRITE,URINE NEGATIVE (NEGATIVE); PH,URINE 6 (5-9); PROTEIN,URINE NEGATIVE (NEGATIVE); UROBILINOGEN,URINE NORMAL (NORMAL)
[2017-03-14 03:02] LABS: ALANINE AMINOTRANSFERASE 18 U/L (0-55); ALBUMIN 4.1 GM/DL (3.2-4.5); AMYLASE 48 U/L (25-125); ANION GAP 12 MMOL/L (5-14); ASPARTATE AMINO TRANSFERASE 27 U/L (5-34); BILIRUBIN,TOTAL 0.3 MG/DL (0.1-1.0); BLOOD UREA NITROGEN 10 MG/DL (7-18); BUN/CREATININE RATIO 14; CALCIUM 9.1 MG/DL (8.5-10.1); CARBON DIOXIDE 22 MMOL/L (21-32); CHLORIDE 107 MMOL/L (98-107); CREATININE SERUM 0.72 MG/DL (0.60-1.30); GFR ESTIMATED > 60; GLUCOSE 98 MG/DL (70-105); LIPASE 35 U/L (8-78); POTASSIUM 3.7 MMOL/L (3.6-5.0); SODIUM 141 MMOL/L (135-145); TOTAL PROTEIN 7.8 GM/DL (6.4-8.2)
[2017-03-14] MEDS ORDERED: FAMOTIDINE 20MG/2ML IV (PEPCID) IV STA (04:18)
[2017-03-14] MEDS ORDERED: HYDROmorphone (DILAUDID) 2 MG/ML VIAL IVP STA (04:18)
[2017-03-14] MEDS ORDERED: HYDR-3816 PO (06:19)
[2017-03-14 06:22] VITALS: BP 96/67
== END 2017-03-14 06:22 | disposition home or self-care (01) ==
LOC: EDUNIT# 00:15 → ER 00:17
DX: R10.13 Epigastric pain (principal); N28.89 Other specified disorders of kidney and ureter; F41.9 Anxiety disorder, unspecified; G43.909 Migraine, unspecified, not intractable, without status migrainosus; Z79.899 Other long term (current) drug therapy
CPT/HCPCS: 36415; 80053; 81000; 82150; 83690; 85025; 96361; 96374; 96375

== ENCOUNTER 2017-04-13 15:59 | Emergency (ER) | payer MEDICARE, MEDICAID ==
[~2017-04-13] VITALS: Ht 160 cm; Wt 109.1 kg
--- OUTSIDE RECORDS SUMMARY | 2017-04-13 16:06 | XMS REPORT | Continuity of Care Document ---
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
--- OUTSIDE RECORDS SUMMARY | 2017-04-13 16:07 | XMS REPORT | Encounter Summary ---
Author Author [facility] Organization [facility] Address Unknown Phone Unavailable Care Team Providers Care Market Stall Vendor Name Role Phone PCP Unavailable Reason for Visit * Reason Comments General Question Encounter Details Date Type Department Care Team Description 04/13/2017 Telephone [facility] Katharina Vann MD General Question Physicians - Urology [address] [facility] [address] [place] [address] [address] [place] [address] Social History Tobacco Use Types Packs/Day Years Used Date Never Smoker Smokeless Tobacco: Never Used Alcohol Use Drinks/Week oz/Week Comments Yes Does not consume alcohol in excess. Sex Assigned at Date Recorded Not on file as of this encounter Functional Status Functional Status Response Date of Assessment Does the patient have a hearing impairment: No 04/10/2017 as of this encounter Miscellaneous Notes * Telephone Encounter - Katharina Vann MD - 04/13/2017 9:05 AM CDT Return patient's call back regarding pain after her recent left laparoscopic nephrectomy on April 10, 2017. She was recently discharged on 2 days ago. She states she has also not been able to defecate since the day she left the hospital on and the last time she passed gas was yesterday morning. She states she has no issues with urination. She feels nauseous but has not vomited. Denies fevers and chills. She has been taking Oxycodone, Toradol, and Tylenol and taking her Docusate and Miralax, She states there is a sharp stabbing pain in her lower abdomen. I stated that the pain she is experiencing is likely due to her constipation. I instructed her to increase MiraLAX from once a day to twice a day, continue her docusate, and go buy Dulcolax suppositories at the local pharmacy. I stated that she should try this first, and if her symptoms does not resolve and she continues to have increasing abdominal pain or start vomiting, then she should come to the emergency room to be evaluated. All questions were answered and patient voiced understanding. in this encounter Plan of Treatment Not on fileas of this encounter Visit Diagnoses Not on filein this encounter
--- OUTSIDE RECORDS SUMMARY | 2017-04-13 16:07 | XMS REPORT | Encounter Summary ---
Author Author [facility] Organization [facility] Address Unknown Phone Unavailable Care Team Providers Care Local Telephone Operator Name Role Phone PCP Unavailable Reason for Visit * Auth/Cert Status Reason Specialty Diagnoses / Referred By Referred To Procedures Contact Contact Diagnoses Renal mass unknown P rocedures NEPHRECTOMY LAPAROSCOPY Encounter Details Date Type Department Care Team Description 04/10/2017 Hospital Surg Onc/Uro/Equipment Installation Professional Onc Abel Heart MD Renal mass - Encounter [address] 04/11/2017 [place] [address] [address] [place] [address] [phone] Social History Tobacco Use Types Packs/Day Years Used Date Never Smoker Smokeless Tobacco: Never Used Alcohol Use Drinks/Week oz/Week Comments Yes Does not consume alcohol in excess. Sex Assigned at Date Recorded Not on file as of this encounter Last Filed Vital Signs Vital Sign Reading Time Taken Blood Pressure 135/68 04/11/2017 11:53 AM CDT Pulse 67 04/11/2017 11:53 AM CDT Temperature 36.7 C (98.1 F) 04/11/2017 11:53 AM CDT Respiratory Rate - - Oxygen Saturation 97% 04/11/2017 11:53 AM CDT Inhaled Oxygen - - Concentration Weight 114.1 kg (251 lb 8.7 oz) 04/10/2017 9:19 AM CDT Height - - Body Mass Index 46.38 04/10/2017 9:19 AM CDT in this encounter Functional Status Functional Status Response Date of Assessment Does the patient have a hearing impairment: No 04/10/2017 as of this encounter Discharge Instructions * Pre-Anesthesia Medication Instructions - Jenn Shirley RN - 03/25/2017 10: 30 AM CDT Formatting of this note may be different from the original. YOUR MEDICATIONS: DIPHENHYDRAMINE HCL (BENADRYL ALLERGY PO) Take by mouth as Needed. estradiol (ESTRACE) 1 mg tablet Take 2 mg by mouth at bedtime daily. fluoxetine (PROZAC) 20 mg capsule Take 40 mg by mouth at bedtime daily. HYDROcodone/acetaminophen (NORCO) 7.5/325 mg tablet Take 1 tablet by mouth every 6 hours as needed for Pain ibuprofen (MOTRIN) 800 mg tablet Take 800 mg by mouth every 6 hours as needed for Pain. ondansetron (ZOFRAN ODT) 8 mg rapid dissolve tablet DISSOLVE ONE TABLET IN MOUTH EVERY 8 HOURS NEEDED FOR NAUSEA; NEED GI OFFICE VISIT FOR ANY ADDITIONAL REFILLS rOPINIRole (REQUIP) 2 mg tablet Take 4 mg by mouth at bedtime daily. YOUR MEDICATION INSTRUCTIONS FOR SURGERY: Before surgery Do not start any new vitamins, herbals, and natural supplements 14 days before surgery: Stop the following medications 7 days before surgery: Anti-inflammatory medications such as ibuprofen (Advil, Motrin) and naproxen (Aleve) You may use acetaminophen (Tylenol) and [place] Morning of surgery On the morning of surgery, do NOT take these medications: Remaining vitamins/supplements Ointments/creams/lotions On the morning of surgery, take ONLY these medications with a sip (1-2 ounces) of water: [place] If needed Zofran if needed Other information Before surgery, please contact TIMUR Barajas with any medicine updates or questions. E-mail: [email or web address] Before going home from the hospital, please ask your doctor when you should re- start your medicines that were stopped before surgery. * Pre-Anesthesia Patient Instructions - Jenn Shirley RN - 03/25/2017 10:27 AM CDT GENERAL INFORMATION Before you come to the hospital Make arrangements for a responsible adult to drive you home and stay with you for 24 hours following surgery. Bath/Shower Instructions Take a bath or shower using the special soap called Hibiclens or surgical scrub, the generic name for it is chlorhexidine gluconate. Use 1/2 of the bottle the night before in the shower, use the other 1/2 bottle the morning of surgery in the shower. Scrub everywhere except your hands, face, and genital area. This soap can be bought over the counter at most pharmacies. You only need a 4 oz bottle. You can get a free bottle at the [facility] (P[facility]) -- located next to admissions in the lobby of the hospital. If you cannot obtain this soap, use an antibacterial soap like Dial instead. Put on clean clothes after bath or shower. Avoid using lotion and oils. If you are having surgery above the waist, wear a shirt that fastens up the front. Sleep on clean sheets if bath or shower is done the night before procedure. Leave money, credit cards, jewelry, and any other valuables at home. The [facility] is not responsible for the loss or breakage of personal items. Remove nail indonesian, makeup and all jewelry (including piercings) before coming to the hospital. The morning of your procedure: brush your teeth and tongue do not smoke do not shave the area where you will have surgery What to bring to the hospital ID/ Insurance Card Stringing Machine Operator card Official documents for legal guardianship Copy of your Living Will, Advanced Directives, and/or Durable Power of Collar Band Creaser Small bag with a few personal belongings Cases for glasses/hearing aids/contact lens (bring solutions for contacts) Dress in clean, loose, comfortable clothing Eating or drinking before surgery Do not eat or drink anything after 11:00 pm the day before your procedure ( including gum, mints, candy, or chewing tobacco). Other instructions Notify your surgeon if: there is a possibility that you are you become ill with a cough, fever, sore throat, nausea, vomiting or flu- like symptoms you have any open wounds/sores that are red, painful, draining, or are new since you last saw the doctor you need to cancel your procedure You will receive a call between 2:00 - 4:00 p.m. the day before your surgery with your arrival time. If you have not received a call by 4:00 you may call or [phone] after 4:30. Notify us at [facility] if you need to cancel your procedure if you are going to be late Arrival at the [facility]: Park in the [facility] located directly across from the main entrance to the hospital. [employer] parking is available from 7 AM to 4 PM Saturday through Saturday. Validate your parking ticket at the Information Desk in the hospital lobby. Proceed to Admissions located across the lobby from the Information Desk. in this encounter Medications at Time of Discharge Medication Sig. Disp. Refills Start Date End Date diphenhydrAMINE (BENADRYL Take 50 mg by mouth every ALLERGY) 25 mg tablet 6 hours as needed. estradiol (ESTRACE) 2 mg Take 2 mg by mouth at tablet bedtime daily. fluoxetine (PROZAC) 20 mg Take 2 capsules by mouth 90 capsule 3 2016 capsule at bedtime daily. HYDROcodone/acetaminophen Take 1 tablet by mouth 20 tablet 0 2016 (NORCO) 7.5/325 mg every 6 hours as needed tabletIndications: PAIN for Pain Indications: PAIN ondansetron (ZOFRAN ODT) DISSOLVE ONE TABLET IN 60 Tab 0 12/25/2016 8 mg rapid dissolve MOUTH EVERY 8 HOURS tablet NEEDED FOR NAUSEA; NEED GI OFFICE VISIT FOR ANY ADDITIONAL REFILLS polyethylene glycol 3350 Take 1 packet by mouth 12 each 5 04/11/2017 (MIRALAX) 17 g daily. Indications: packetIndications: CONSTIPATION CONSTIPATION rOPINIRole (REQUIP) 4 mg Take 4 mg by mouth at tablet bedtime daily. senna/docusate Take 1 tablet by mouth 15 tablet 0 04/11/2017 (SENOKOT-S) 8.6/50 mg twice daily. Indications: tabletIndications: CONSTIPATION CONSTIPATION traMADol (ULTRAM) 50 mg Take 1-2 tablets by mouth 30 tablet 0 2016 tabletIndications: PAIN every 6 hours as needed. Indications: PAIN as of this encounter Progress Notes * Venecia Wheeler, TIMUR - 04/11/2017 2:30 PM CDT RN in room to review discharge instructions with pt.. Discussed activity restrictions, diet, medications, wound/incision care, and s/s to report. Pt verbalized understanding of instructions. Pt has no further questions or concerns at this time. Prescriptions given to pt by Pao Santillan NP. Both PIV's d /c. All belongings gathered and with pt. Pt left via wheelchair accompanied by staff at 1440. * Abel Heart MD - 04/11/2017 5:33 AM CDT Formatting of this note may be different from the original. Urology Progress Note 04/11/2017 ASSESSMENT: Janeth Delgado is a 32 y.o. Female with left renal mass s/p left laparoscopic nephrectomy on 04/10/17, LOS: 1 day PLAN: will discuss plan with staff surgeon - Dr. Heart - Pain control: PO and IV - Diet/FEN: Regular, SLIVF - GI: bowel regimen with Senokot-S, Miralax, Dulcolax - : catheter removed on rounds, f/u in 3 weeks with BMP - OOB/Amb - Dispo: Discharge planning today Katharina Vann MD PGY-1 Urology Please page urology manager community relations with questions ATTESTATION I personally performed the guillermo portions of the E/M visit, discussed case with resident and concur with resident documentation of history, physical exam, assessment, and treatment plan unless otherwise noted. Staff name: Abel Heart MD Date: 04/12/2017 SUBJECTIVE: Overnight events: No acute events. Pain controlled. Tolerating CLD without nausea or emesis. Patient has not been ambulating. -flatus/-BM. OBJECTIVE: Vital Signs: Most Recent Vital Signs: Past 24 Hours BP: 124/65 (04/11 326) Temp: 37.1 C (98.8 F) (04/11 326) Pulse: 92 (04/11 326) Respirations: 16 PER MINUTE (04/11 326) SpO2: 99 % (04/11 326) O2 Delivery: Nasal Cannula (04/11 326) Weight: 114.1 kg (251 lb 8.7 oz) (04/10 919) BP: (122-169)/(65-102) Temp: [36.3 C (97.3 F)-37.2 C (98.9 F)] Pulse: [60-105] Respirations: [10 PER MINUTE-27 PER MINUTE] SpO2: [96 %-100 %] O2 Delivery: Nasal Cannula Intake/Output Summary (Last 24 hours) at 04/11/17 0533 Last data filed at 04/11/17 0328 Gross per 24 hour Intake 4640 ml Output 3850 ml Net 790 ml General: alert, oriented, no acute distress. Pulm: non-labored, equal chest rise CV: regular rate and rhythm Abd: soft, non-distended Incisions / Wounds: Appropriately tender to palpation. laparoscopic incision C/D /I, sutured Extremities: No edema, SCD's in place : Romero catheter in place draining clear yellow urine Labs: Hematology Chemistry Recent Labs 04/10/17 0929 WBC 9.6 HGB 12.5 PLTCT 300 Recent Labs 04/10/17 0929 NA 137 K 4.0 CL 104 CO2 26 BUN 10 CR 0.64 GFR >60 GLU 92 CA 9.2 * Bruna Fletcher, PHARMD - 04/10/2017 6:30 PM CDT Formatting of this note may be different from the original. Pharmacy Vancomycin Note Subjective: Janeth Delgado is a 32 y.o. female being treated for 24 hour surgical prophylaxis . Objective: Current Vancomycin Orders Medication Dose Route Frequency vancomycin (VANCOCIN) 1,750 mg in dextrose 5% (D5W) IVPB 1,750 mg Intravenous Q12H* vancomycin, pharmacy to manage 1 each Service Per Pharmacy Day of Vancomycin therapy: 1 White Blood Cells Date/Time Value Ref Range Status 04/10/2017 0929 9.6 4.5 - 11.0 K/UL Final Creatinine Date/Time Value Ref Range Status 04/10/2017 0929 0.64 0.4 - 1.00 MG/DL Final Blood Urea Nitrogen Date/Time Value Ref Range Status 04/10/2017 0929 10 7 - 25 MG/DL Final Estimated CrCl: >100 mL/min Intake/Output Summary (Last 24 hours) at 04/10/17 1830 Last data filed at 04/10/17 1822 Gross per 24 hour Intake 2453 ml Output 850 ml Net 1603 ml Actual Weight: 114.1 kg (251 lb 8.7 oz) Dosing BW: 114 kg Assessment: Target levels for this patient: 10-15. Plan: 1. Vancomycin ordered for 24 hours following procedure. Will start vancomycin 1750mg IV q12h x2 doses. Will not plan for levels unless therapy continued. 2. Pharmacy will continue to monitor and adjust therapy as needed. Bruna Fletcher, PHARMD 04/10/2017 * Mariana Gallo, RT - 04/10/2017 6:17 PM CDT Formatting of this note may be different from the original. RESPIRATORY THERAPY ADULT PROTOCOL EVALUATION RESPIRATORY PROTOCOL PLAN Medications Albuterol: Neb PRN Note: If indicated by protocol, medication orders will be placed by therapist. Procedures IPPB: Place a nursing order for "IS Q1h While Awake" for any of Lung Expansion indicators Oxygen/Humidity: O2 to keep SpO2 > 92% Monitoring: Pulse oximetry BID & PRN PATIENT EVALUATION RESULTS Chart Review * Pulmonary Hx: Hx pulmonary disease, hx reactive or obstructive airway disease (PEFR & AM) OR regular home use of bronchodilators (AM) OR inhaled or systemic steroid use for lungs < or equal to 4 times/yr (AM) (h/o asthma) * Surgical Hx: Thoracic or abdominal surgery with reactive or obstructive airway disease (LE) (AM) * Chest X-Ray: Clear OR not available * PFT/Oxygenation: FEV1, PEFR < 70% OR Pa02 < 70 RA OR Sp02 <92% RA OR Fi02 > 0.21 to keep Sp02 > 92% OR < 24 hours post-op (02 & oxim) OR chronic C02 retention (C02) Patient Assessment * Respiratory Pattern: Regular pattern and rate OR good chest excursion with deep breathing * Breath Sounds: Clear and able to auscultate bases posteriorly * Cough / Sputum: Strong, effective cough OR nonproductive * Mental Status: Alert, oriented, cooperative * Activity Level: Ambulatory Priority Index Total Points: 9 Points * Priority Index: 1+ PRIORITY INDEX GUIDELINES* Priority Points 1 0-9 points 2 9-18 points 3 > 18 points + Pulm Dx or Home Rx *Higher points indicate higher acuity. Therapist: Mariana Gallo, RT Date: 04/10/2017 [place] AC=Airway clearance AM=Aerosolized medication BA=Gillespie aerosol DB&C=Deep breathe & cough FEV1=Forced expiratory volume in first second) IC=Inspiratory capacity LE=Lung expansion MDI=Metered dose inhaler Neb=Nebulizer O2=Oxygen Oxim=Oximetry PEFR=Peak expiratory flow rate CREDIT REVIEW MANAGER=Rapid Response Team * Venecia Wheeler RN - 04/10/2017 5:20 PM CDT Patient arrived on unit via cart accompanied by transport staff and family. Patient ambulated to the bed with assistance. Assessment completed, refer to flowsheet for details. Orders released, reviewed, and implemented as appropriate. Oriented to surroundings, call light within reach. Plan of care reviewed. Will continue to monitor and assess. * Jenn Shirley RN - 03/25/2017 10:36 AM CDT PAC phone triage completed with patient for surgery on 04/10/[address] Heart. Patient is morbidly obese, has chronic pancreatitis, asthma. Pt denies any other high risk factors. Denies Chestpain or palpitations, but states that she has some SOA but thinks it is related to cold symptoms. PT denies fever or cough. Pt advised to call DR Heart if any flu/cold symptoms worsen prior to surgery. Pt has CBC and BMP that are WNL from 03/07/17 in outside records. NO PAC visit indicated. Medication and Preop instructions reviewed with patient. No vitamins, herbals or supplements for 14 days, No NSAIDS for 7 days. May take Zofran and [place] day of surgery. NPO after 11:00 pm on the night before surgery. Pt verbalized instructions. Copy of instructions emailed to patient. in this encounter H&P Notes * Abel Heart MD - 04/10/2017 10:18 AM CDT Formatting of this note may be different from the original. History and Physical Update Note Name: Janeth Delgado Allergies: Penicillins; Demerol (pf) [meperidine (pf)]; and Fentanyl Primary Care Physician: Mary Whittington Verified Lab/Radiology/Other Diagnostic Tests: Pertinent labs reviewed Last Dose Beta Blockers/Anticoagulants: N/A Point of Care Testing: (Last 24 hours): I have examined the patient, and there are no significant changes in their condition, from the previous H&P performed on 03/18/17. Randy Recio MD ATTESTATION I personally performed the guillermo portions of the E/M visit, discussed case with resident and concur with resident documentation of history, physical exam, assessment, and treatment plan unless otherwise noted. Since clinic, patient has called in a states she does not want any ablative technique and is more comfortable with resection. Given the endophytic nature, we will proceed with lap nephrectomy. She understands that there is a possibility of conversion to open based on multiple factors. We reviewed the risks again as outlined in clinic previously. She verbalizes understanding and has signed informed consent. Patient is marked on the left side and ready for the OR from urology perspective. Staff name: Abel Heart MD Date: 04/10/2017 in this encounter Miscellaneous Notes * Care Plan - Venecia Wheeler RN - 04/11/2017 2:41 PM CDT Problem: Discharge Planning Goal: Knowledge regarding plan of care Outcome: Goal Achieved Date Met: 04/11/17 Discharge instructions provided to pt by RN (see other note for details). Problem: Pain Goal: Management of pain Outcome: Goal Achieved Date Met: 04/11/17 Pt minimally requesting pain medication. Controlled with PO pain meds. Abdominal binder in place. Problem: Respiratory Impairment (Non-Ventilated Patient) Goal: Effective gas exchange Outcome: Goal Achieved Date Met: 04/11/17 SpO2 within normal limits on RA. Problem: Skin Integrity Goal: Healing of skin (Wound & Incision) Outcome: Goal Achieved Date Met: 04/11/17 Incision sites clean, dry, and intact. * Anesthesia Post Op Day 1 - Deondre Ochoa CRNA - 04/11/2017 8:07 AM CDT Formatting of this note may be different from the original. Anesthesia Follow-Up Evaluation: Post-Procedure Day One Name: Janeth Delgado : 1985 Age: 32 y.o. Sex: female Procedure Date: 04/10/2017 Procedure: Procedure(s) with comments: NEPHRECTOMY LAPAROSCOPY - CASE LENGTH 3 HOURS Physical Assessment Weight: 114.1 kg (251 lb 8.7 oz) Vital Signs (Last Filed in 24 hours) BP: 106/57 (04/11 805) Temp: 36.7 C (98 F) (04/11 805) Pulse: 65 (04/11 805) Respirations: 18 PER MINUTE (04/11 805) SpO2: 100 % (04/11 805) O2 Delivery: None (Room Air) (04/11 805) SpO2 Pulse: 84 (04/10 1645) Patient History Allergies Allergies Allergen Reactions Penicillins UNKNOWN Demerol (Pf) [Meperidine (Pf)] ITCHING Fentanyl ITCHING Medications Scheduled Meds: acetaminophen (TYLENOL) tablet 1,000 mg 1,000 mg Oral Q6H* bisacodyl (DULCOLAX) rectal suppository 10 mg 10 mg Rectal BID enoxaparin (LOVENOX) syringe 40 mg 40 mg Subcutaneous QDAY(21) fluoxetine (PROZAC) capsule 40 mg 40 mg Oral QHS polyethylene glycol 3350 (MIRALAX) packet 17 g 1 packet Oral BID rOPINIRole (REQUIP) tablet 4 mg 4 mg Oral QHS senna/docusate (SENOKOT-S) tablet 2 tablet 2 tablet Oral BID vancomycin (VANCOCIN) 1,750 mg in dextrose 5% (D5W) IVPB 1,750 mg Intravenous Q12H* vancomycin, pharmacy to manage 1 each Service Per Pharmacy Continuous Infusions: PRN and Respiratory Meds:albuterol 0.083% Q4H PRN, fentaNYL citrate PF Q1H PRN, melatonin QHS PRN, ondansetron (ZOFRAN) IV Q6H PRN, oxyCODONE Q3H PRN Diagnostic Tests Hematology: Lab Results Component Value Date HGB 11.6 04/11/2017 HCT 33.5 04/11/2017 PLTCT 274 04/11/2017 WBC 13.6 04/11/2017 NEUT 65 05/22/2011 ANC 5.83 05/22/2011 ALC 2.48 05/22/2011 DELICIA 5 05/22/2011 AMC 0.43 05/22/2011 EOSA 2 05/22/2011 ABC 0.04 05/22/2011 MCV 82.9 04/11/2017 MCH 28.6 04/11/2017 MCHC 34.5 04/11/2017 MPV 7.7 04/11/2017 RDW 13.5 04/11/2017 General Chemistry: Lab Results Component Value Date NA 138 04/11/2017 K 4.2 04/11/2017 CL 107 04/11/2017 CO2 24 04/11/2017 GAP 7 04/11/2017 BUN 8 04/11/2017 CR 1.00 04/11/2017 GLU 132 04/11/2017 CA 8.6 04/11/2017 ALBUMIN 4.8 06/24/2013 TOTBILI 0.4 06/24/2013 Coagulation: No results found for: PT, PTT, INR Follow-Up Assessment Patient location during evaluation: floor Anesthetic Complications: Anesthetic complications: The patient did not experience any anesthestic complications. Pain: Score: 0 Management:adequate Level of Consciousness: awake and alert Hydration:acceptable Airway Patency: patent Respiratory Status: acceptable Cardiovascular Status:acceptable Regional/Neuroaxial: * Operative Report (Direct Entry) - Abel Heart MD - 04/10/2017 2:33 PM CDT Formatting of this note may be different from the original. OPERATIVE REPORT Name: Janeth Delgado is a 32 y.o. female : 1985 DATE OF OPERATION: 04/10/2017 Surgeon(s) and Role: * Randy Recio MD - Resident - Assisting * Abel Heart MD - Primary Preoperative Diagnosis: Renal mass [N28.89] Post-op Diagnosis * Renal mass [N28.89] Procedure(s) (LRB): NEPHRECTOMY LAPAROSCOPY (Left) Modifier 22: Morbid obesity with BMI of 45 requiring additional operative time and difficulty. Anesthesia Type: General Description and Findings of Operative Procedure: The patient was properly identified in the preoperative holding area, and informed consent was obtained. The patient was taken to the operating room where a timeout was performed, and the site and procedure were confirmed. Perioperative antibiotics were given. Anesthesia was induced. The patient was intubated. A 16-Belarusian Romero catheter was placed per urethra under sterile conditions. The patient was then placed in the lateral decubitus position and the bed was flexed slightly to better open up the flank. The beanbag was utilized to keep the patient in the flank position. All pressure points were padded and secured the patient to the bed with three-point fixation across the knee, hip and the chest. Veress needle access was obtained in the LUQ. Pneumoperitoneum was achieved to 15 mmHg. A 10-12mm camera port was inserted lateral and superior to the umbilicus. A laparoscope was inserted and the abdomen was inspected. It was noted the Veress needle and trocar had not injured any organs during placement. Two 10-12mm trocars were inserted in the lower and upper quadrant, respectively, with proper triangulation. The colon was medialized along the white line of Toldt. Anterior abdominal wall bowel adhesions were taken down with electrocautery. The lower quadrant was inspected in order to identify the tail of the kidney and ureter. The tail of the kidney was mobilized anterolaterally until we saw the psoas muscle. The gonadal vein was placed medially. The gonadal vein and ureter were traced toward the hilum. Tthe hilum was dissected and skeletonized cautiously with electrocautery, noting a single renal vein and a single renal artery. A 60 load endovascular stapler was utilized to staple across the artery and vein and vitals remained stable when this was clamped. The gonadal and adrenal vasculature remained intact. We then continued to mobilize the remaining portion of the kidney. The kidney was completely mobilized and dissected off the adrenal gland which was spared. No significant bleeding was encountered. After completely freeing the kidney it was placed superiorly. We inspected the renal fossa. It was copiously irrigated with normal saline and was hemotstatic. There was no evidence of visceral injury, diaphragm injury or bleeding. FloSeal was placed along the renal vein/artery stump and along the adrenal gland and SurgiCell was blanketed over this. The kidney was placed into a 15mm Endocatch bag. The Lion-Tracy device was utilized to place a facial 2-0 Vicryl in the camera port and LUQ port. Once this had been done, the 10/12 port in the lower quadrant was extended through fascia and the kidney was removed. Surgical counts were completed per protocol and correct. The incision in the lower quadrant was extended to about 6 to 7 cm in size, and dissection was carried down through the fascial layers and muscle with the Bovie. The EndoCatch bag with the kidney was removed intact. The external fascia was closed using 1-0 PDS in running fashion. Colin was reapproximated with a 2-0 Vicryl. The skin edges were closed with a 4-0 Monocryl at all our sites, and Dermabond was applied. Then, 0.5% Marcaine were injected to all the incision sites as well. The patient tolerated the procedure well. Estimated Blood Loss: 50mL Specimen(s) Removed/Disposition: ID Type Source Tests Collected by Time Destination 1 : Tissue Kidney, Left SURGICAL PATHOLOGY Abel Heart MD 04/10/2017 1352 Randy Recio MD ATTESTATION I performed this procedure with a resident. and I was present for the entire procedure. Staff name: Abel Heart MD Date: 04/10/2017 in this encounter Plan of Treatment Name Priority Associated Diagnoses Date/Time POC ANES US GUIDED NERVE BLOCK Routine 04/10/2017 3:19 PM CDT Name Priority Associated Diagnoses Order Schedule SURGICAL PATHOLOGY Routine Renal mass ONCE for 1 Occurrences starting 04/10/2017 POC ANES US GUIDED NERVE BLOCK Routine ONE TIME for 1 Occurrences starting 04/10/2017 until 04/10/2017 BASIC METABOLIC PANEL Routine Renal mass Expected: 05/06/2017 Left renal mass (Approximate), Expires: 04/11/2018 as of this encounter Procedures Procedure Name Priority Date/Time Associated Diagnosis Comments NEPHRECTOMY LAPAROSCOPY 04/10/2017 Renal mass 12:05 PM CDT in this encounter Results * CBC (04/11/2017 4:41 AM) Component Value Ref Range White Blood Cells 13.6 (H) 4.5 - 11.0 K/UL RBC 4.03 4.0 - 5.0 M/UL Hemoglobin 11.6 (L) 12.0 - 15.0 GM/DL Hematocrit 33.5 (L) 36 - 45 % MCV 82.9 80 - 100 FL MCH 28.6 26 - 34 PG MCHC 34.5 32.0 - 36.0 G/DL RDW 13.5 11 - 15 % Platelet Count 274 150 - 400 K/UL MPV 7.7 7 - 11 FL Specimen Performing Laboratory [facility] [address] [place] [address] * BASIC METABOLIC PANEL (04/11/2017 4:41 AM) Component Value Ref Range Sodium 138 137 - 147 MMOL/L Potassium 4.2 3.5 - 5.1 MMOL/L Chloride 107 98 - 110 MMOL/L CO2 24 21 - 30 MMOL/L Anion Gap 7 3 - 12 Glucose 132 (H) 70 - 100 MG/DL Blood Urea Nitrogen 8 7 - 25 MG/DL Creatinine 1.00 0.4 - 1.00 MG/DL Calcium 8.6 8.5 - 10.6 MG/DL eGFR Non >60 >60 mL/min Comment: The eGFR is not validated for use in drug dosing adjustments. Continue to use estimated creatinine clearance per dosing reference text. Please contact the Clinical Pharmacist for questions. eGFR >60 >60 mL/min Comment: The eGFR is not validated for use in drug dosing adjustments. Continue to use estimated creatinine clearance per dosing reference text. Please contact the Clinical Pharmacist for questions. Specimen Performing Laboratory [facility] [address] [place] [address] * SURGICAL PATHOLOGY (04/10/2017 3:00 PM) Component Value Ref Range PATHOLOGY REPORT [facility] [email or web address] Shaylee Black MD, PhD, Director of Anatomic Pathology Department of Pathology and Laboratory Medicine [address] [place] [id number] Surgical Pathology Office: [phone] SURGICAL PATHOLOGY REPORT NAME: JANETH DELGADO SURG PATH #: [id number] MR #: [id number] SPECIMEN CLASS: SR BILLING #: [id number] ALT ID #: LOCATION: 53 DATE OF PROCEDURE: 04/10/2017 AGE: 32 SEX: F DATE RECEIVED: 04/10/2017 : 1985 TIME RECEIVED: 15:00 PHYSICIAN: ABEL HEART MD DATE OF REPORT: 04/11/2017 COPY TO: DATE OF PRINTIN04/11/2017 ################################################## ###################### Final Diagnosis: A. 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 Comment: KIDNEY: Nephrectomy, Partial or Radical CAP Version: Kidney 4.0.0.0 Procedure Radical nephrectomy Specimen Laterality Left Tumor Site (select all that apply) Upper pole Tumor Size (largest tumor if multiple) Greatest dimension: 2.8 cm Additional dimensions: 2.5 x 2.4 cm Tumor Focality Unifocal Histologic Type Clear cell renal cell carcinoma Sarcomatoid Features Not identified Rhabdoid Features Not identified Tumor Necrosis (any amount) Not identified Histologic Grade (WHO/ISUP) G3: Nucleoli are conspicuous and eosinophilic at x100 magnification. Tumor Extension (select all that apply) Tumor limited to kidney Margins (select all that apply) Margins uninvolved by invasive carcinoma Lymph-Vascular Invasion (excluding renal vein and its muscle containing segmental branches and inferior venacava) Not identified Pathologic Staging (pTNM) TNM Descriptors (required only if applicable) (select all that apply) Primary Tumor (pT) pT1a: Tumor 4 cm or less in greatest dimension, limited to the kidney Regional Lymph Nodes (pN) pNX: Regional lymph nodes cannot be assessed No nodes submitted or found Distant Metastasis (pM) Not applicable Pathologic Findings in Nonneoplastic Kidney (select all that apply) Significant pathologic alterations None identified Other Tumors and/or Tumor-like Lesions (select all that apply) None identified The pathologic stage assigned here should be regarded as provisional, as it reflects only current pathologic data and does not incorporate full knowledge of the patient's clinical status and/or prior pathology. Pursuant to the [employer] Program at the [facility] Pathology Department, selected slides from this case have been concurrently reviewed by the following pathologist: Dr. Bruna Jackson, who agrees with the final diagnosis. Attestation: By this signature, I attest that I have personally formulated the final interpretation expressed in this report and that the above diagnosis is based upon my examination of the slides and/or other material indicated in this report. +++ +++ Marlo Bobby M.D. young/04/11/2017 ################################################## ###################### Material Received: A: left kidney History: 32-year-old female with a clinical history of a renal mass. Gross Description: A. Fixative: Fresh Labeled: "left kidney" Weight: 473 grams Specimen Received: Radical nephrectomy Specimen Measurement: 22.0 x 10.5 x 4.0 cm Kidney Measurement: 13.0 x 7.5 x 4.2 cm Tumor size: 2.8 x 2.5 x 2.4 cm Tumor location: Superior Pole Tumor appearance: Encapsulated, red-yellow and hemorrhagic Renal vein involved by tumor: No Renal artery involved by tumor: No Ureter involved by tumor: No Renal Pelvis: Mass is adjacent to the renal pelvis but does not appear to be involving the renal pelvis Renal sinus fat involved by tumor: No, the mass abuts the renal sinus fat Uninvolved renal parenchyma: Red-brown with a well demarcated cortical medullary junction Adrenal gland: Not present The perinephric fat deep to the tumor is inked black. Lymph nodes identified: No Substance Abuse Therapist sections of the specimen are submitted as follows: A1-A2 Vascular and ureteral margins. A3 Tumor to nearest capsule/Gerota's fascia including surrounding perinephric fat. A4 Tumor to adjacent normal kidney. A5 Tumor to renal pelvis. A6-A8 Tumor to renal sinus fat. ny/04/10/2017 Specimen Performing Laboratory [facility] * BLOOD TYPE CONFIRMATION - ORDER ONLY IF REQUESTED BY LAB (04/10/2017 9:44 AM) Component Value Ref Range ABO/RH(D) A NEG Specimen Performing Laboratory [facility] [address] [place] [id number] * TYPE & CROSSMATCH (04/10/2017 9:29 AM) Component Value Ref Range Units Ordered 0 Crossmatch Expires 04/13/2017 Record Check 2ND TYPE REQUIRED ABO/RH(D) A NEG Antibody Screen NEG Electronic Crossmatch YES Specimen Performing Laboratory [facility] [address] [place] [address] * BASIC METABOLIC PANEL (04/10/2017 9:29 AM) Component Value Ref Range Sodium 137 137 - 147 MMOL/L Potassium 4.0 3.5 - 5.1 MMOL/L Chloride 104 98 - 110 MMOL/L CO2 26 21 - 30 MMOL/L Anion Gap 7 3 - 12 Glucose 92 70 - 100 MG/DL Blood Urea Nitrogen 10 7 - 25 MG/DL Creatinine 0.64 0.4 - 1.00 MG/DL Calcium 9.2 8.5 - 10.6 MG/DL eGFR Non >60 >60 mL/min Comment: The eGFR is not validated for use in drug dosing adjustments. Continue to use estimated creatinine clearance per dosing reference text. Please contact the Clinical Pharmacist for questions. eGFR >60 >60 mL/min Comment: The eGFR is not validated for use in drug dosing adjustments. Continue to use estimated creatinine clearance per dosing reference text. Please contact the Clinical Pharmacist for questions. Specimen Performing Laboratory [facility] [address] [place] [address] * CBC (04/10/2017 9:29 AM) Component Value Ref Range White Blood Cells 9.6 4.5 - 11.0 K/UL RBC 4.42 4.0 - 5.0 M/UL Hemoglobin 12.5 12.0 - 15.0 GM/DL Hematocrit 36.1 36 - 45 % MCV 81.8 80 - 100 FL MCH 28.3 26 - 34 PG MCHC 34.5 32.0 - 36.0 G/DL RDW 13.4 11 - 15 % Platelet Count 300 150 - 400 K/UL MPV 7.4 7 - 11 FL Specimen Performing Laboratory [facility] [address] [place] [address] in this encounter Visit Diagnoses Diagnosis Renal mass - Primary Unspecified disorder of kidney and ureter Left renal mass Unspecified disorder of kidney and ureter in this encounter Admitting Diagnoses Diagnosis Renal mass - unknown Unspecified disorder of kidney and ureter Left renal mass in this encounter Administered Medications Medication Order MAR Action Action Date Dose Rate Site acetaminophen (TYLENOL) tablet 1,000 mg Given 04/11/2017 1,000 mg 1,000 mg, Oral, EVERY 6 HOURS, First 02:16 CDT dose on Sat04/10/17 at 2000, Until Discontinued, TOTAL ACETAMINOPHEN DOSE NOT TO EXCEED 4GM DAILY Given 04/11/2017 1,000 mg 08:14 CDT Given 04/11/2017 1,000 mg 14:35 CDT bisacodyl (DULCOLAX) rectal suppository Given 04/11/2017 10 mg 10 mg 08:21 CDT 10 mg, Rectal, TWICE DAILY, First dose on Sat04/11/17 at 0900, Until Discontinued, Hold for loose stools dextrose 5 % & 0.45% NaCl with KCl 20 Given - New 04/10/2017 125 mL/ hr mEq/L infusion Bag 16:20 CDT 1,000 mL, Intravenous, at 125 mL/hr, CONTINUOUS, Starting Sat04/10/17 at 1600, Until Sat04/11/17 at 0611, Admission/Obs/Extended Recovery Given - New Bag 04/11/2017 125 mL/hr 01:11 CDT enoxaparin (LOVENOX) syringe 40 mg Given 04/10/2017 40 mg Abdominal 40 mg, Subcutaneous, DAILY, First dose 20:17 CDT Tissue on Sat04/10/17 at 2100, Until Discontinued, For patients undergoing surgery: Consult physician in advance -- enoxaparin is an anticoagulant and may need to be held for 12hr prior to surgery or invasive procedures. NOTE: This is a HIGH ALERT Medication. fentaNYL citrate PF (SUBLIMAZE) Given 04/10/2017 50 mcg injection 50 mcg 15:02 CDT 50 mcg, Intravenous, EVERY 5 MIN PRN, Starting Sat04/10/17 at 1454, Until Sat04/10/17 at 1730, Pain Injectable, For Pain Score 7-10, Maximum total dose of 200 mcg Hold for RR < 10 Given 04/10/2017 50 mcg 15:22 CDT fluoxetine (PROZAC) capsule 40 mg Given 04/10/2017 40 mg 40 mg, Oral, AT BEDTIME DAILY, First 20:16 CDT dose on Sat04/10/17 at 2100, Until Discontinued, Admission/Obs/Extended Recovery haloperidol (HALDOL) injection 1 mg Given 04/10/2017 1 mg 1 mg, Intravenous, ONCE PRN, 1 dose, 15:22 CDT Starting Sat04/10/17 at 1454, Until Sat04/10/17 at 2359, Other..., Nausea and Vomiting, First line agent. DO NOT ADMINISTER if given intraoperatively ketorolac (TORADOL) injection 15 mg Given 04/10/2017 15 mg 15 mg, Intravenous, EVERY 6 HOURS, 2 18:22 CDT doses, First dose on Sat04/10/17 at 1745, Last dose on Sat04/10/17 at 2345, Please note: this medication will be automatically discontinued 5 days after ordered per hospital policy. Please obtain a new order if the medication needs to be continued. lactated ringers infusion Given - New 04/10/2017 1,000 mL 20 mL/hr 1,000 mL, 1,000 mL, Intravenous, at 20 Bag 09:37 CDT mL/hr, CONTINUOUS, Starting Sat04/10/17 at 0915, Until Viviana 04/11/17 at 0611, Pre-Op Given - New Bag 04/10/2017 12:03 CDT Given - New Bag 04/10/2017 1,000 mL 20 mL/hr 15:12 CDT levofloxacin (LEVAQUIN) 500 mg/100 mL Given - 04/10/2017 500 mg IVPB Bag 18:27 CDT 500 mg, 100 mL, Administer over 60 Minutes, Intravenous, ONCE, 1 dose, Sat04/10/17 at 1715, sx ppx with vanc oxyCODONE (ROXICODONE, OXY-IR) tablet 5 Given 04/11/2017 5 mg mg 02:14 CDT 5 mg, Oral, EVERY 3 HOURS PRN, Starting Sat04/10/17 at 1731, Until Viviana 04/11/17 at 1652, Pain PO, Try tramadol first Given 04/11/2017 5 mg 11:29 CDT polyethylene glycol 3350 (MIRALAX) Given 04/10/2017 17 g packet 17 g 20:17 CDT 17 g (1 packet), Oral, TWICE DAILY, First dose on Sat04/10/17 at 2100, Until Discontinued, 8.5 GRAMS=0.5 PACKET 17 GRAMS=1 PACKET 34 GRAMS=2 PACKETS Given 04/11/2017 17 g 08:16 CDT rOPINIRole (REQUIP) tablet 4 mg Given 04/10/2017 4 mg 4 mg, Oral, AT BEDTIME DAILY, First dose 20:17 CDT on Sat04/10/17 at 2100, Until Discontinued, Admission/Obs/Extended Recovery senna/docusate (SENOKOT-S) tablet 2 Given 04/10/2017 2 tablets tablet 20:16 CDT 2 tablet, Oral, TWICE DAILY, First dose on Sat04/10/17 at 2100, Until Discontinued, Hold for loose stools Given 04/11/2017 2 tablets 08:15 CDT vancomycin (VANCOCIN) 1,750 mg in Given - New 04/10/2017 1,750 mg 233 mL/hr dextrose 5% (D5W) IVPB Bag 11:05 CDT 1,750 mg (rounded from 1,711.5 mg=15 mg/kg 114.1 kg), Intravenous, 350 mL, Administer over 90 Minutes, ONCE, 1 dose, Sat04/10/17 at 1100, To be given <120 minutes prior to surgical incision vancomycin (VANCOCIN) 1,750 mg in Given - New 04/10/2017 1,750 mg 233 mL/hr dextrose 5% (D5W) IVPB Bag 23:11 CDT 1,750 mg, Intravenous, 350 mL, Administer over 90 Minutes, EVERY 12 HOURS, 2 doses, First dose on Sat04/10/17 at 2300, Last dose on Viviana 04/11/17 at 1100, Note Pharmacokinetic Monitoring: Please record infusion start time (Action=Given) and stop time (Action=Completed) of dose when blood levels are drawn. Given - New Bag 04/11/2017 1,750 mg 233 mL/hr 11:30 CDT in this encounter
--- OUTSIDE RECORDS SUMMARY | 2017-04-13 16:07 | XMS REPORT | Clinical Summary ---
Author Author [facility] Organization [facility] Address Unknown Phone Unavailable Care Team Providers Care Dba Developer Name Role Phone PCP Unavailable Source Comments Some departments are not documenting in the electronic medical record. If you do not see the information that you expected, contact Release of Information in the Health Information Management department at [phone] for further assistance in locating additional records.[facility] Allergies Active Allergy Reactions Severity Noted Date Comments Bupivacaine High 04/10/2017 Bupivacaine Liposome (Pf) High 04/10/2017 Bilateral TAPs: abdominal tissue Lidocaine High 04/10/2017 Ropivacaine High 04/10/2017 Penicillins UNKNOWN 09/20/2011 Meperidine (Pf) ITCHING Low 09/20/2011 Fentanyl ITCHING Low 09/20/2011 Current Medications Prescription Sig. Disp. Refills Start End Date Status Date ondansetron (ZOFRAN ODT) DISSOLVE ONE TABLET IN 60 Tab 0 12/26/19 Active 8 mg rapid dissolve MOUTH EVERY 8 HOURS 17 tablet NEEDED FOR NAUSEA; NEED GI OFFICE VISIT FOR ANY ADDITIONAL REFILLS estradiol (ESTRACE) 2 mg Take 2 mg by mouth at Active tablet bedtime daily. diphenhydrAMINE (BENADRYL Take 50 mg by mouth every Active ALLERGY) 25 mg tablet 6 hours as needed. rOPINIRole (REQUIP) 4 mg Take 4 mg by mouth at Active tablet bedtime daily. fluoxetine (PROZAC) 20 mg Take 2 capsules by mouth 90 capsule 3 Active capsule at bedtime daily. 17 polyethylene glycol 3350 Take 1 packet by mouth 12 each 5 04/11/20 Active (MIRALAX) 17 g daily. Indications: 17 packetIndications: CONSTIPATION CONSTIPATION senna/docusate Take 1 tablet by mouth 15 tablet 0 04/11/20 Active (SENOKOT-S) 8.6/50 mg twice daily. Indications: 17 tabletIndications: CONSTIPATION CONSTIPATION traMADol (ULTRAM) 50 mg Take 1-2 tablets by mouth 30 tablet 0 Active tabletIndications: PAIN every 6 hours as needed. 17 Indications: PAIN HYDROcodone/acetaminophen Take 1 tablet by mouth 20 tablet 0 04/11/20 Active (NORCO) 7.5/325 mg every 6 hours as needed 17 tabletIndications: PAIN for Pain Indications: PAIN hydrocodone-acetaminophen Take 1 Tab by mouth at 03/25/20 Discontin (NORCO) 5-325 mg per bedtime daily. 17 ued tablet rOPINIRole (REQUIP) 2 mg Take 4 mg by mouth at 04/11/20 Discontin tablet bedtime daily. 17 ued vortioxetine (BRINTELLIX) Take 10 mg by mouth 03/25/20 Discontin 10 mg tab daily. 17 ued DIPHENHYDRAMINE HCL Take by mouth as Needed. 04/11/20 Discontin (BENADRYL ALLERGY PO) 17 ued pravastatin (PRAVACHOL) Take 40 mg by mouth 03/25/20 Discontin 40 mg tablet daily. 17 ued estradiol (ESTRACE) 1 mg Take 2 mg by mouth at 04/11/20 Discontin tablet bedtime daily. 17 ued busPIRone (BUSPAR) 5 mg Take 5 mg by mouth three 03/25/20 Discontin tablet times daily. 17 ued scopolamine Apply 1 Patch to top of 30 Patch 1 11/26/19 03/25/20 Discontin (TRANSDERM-SCOP) 1.5 mg skin as directed every 72 15 17 ued patch hours. Do not use more than one patch in 72 hours. ondansetron (ZOFRAN) 4 mg Take 1 Tab by mouth three 60 Tab 1 01/21/20 03/25/20 Discontin tablet times daily as needed for 15 17 ued Nausea. vormpv-ysnqztdq-bfsdumk Take 80,000 Units by 240 Cap 6 02/01/2003/06 Discontin (ZENPEP) 40,000-136,000- mouth three times daily 15 17 ued 218,000 unit with meals. (take 2 caps cpDRIndications: Other with meals, 1 cap with chronic pancreatitis snacks. (HCC) prazosin (MINIPRESS) 2 mg Take 2 mg by mouth at 03/25/20 Discontin capsule bedtime daily. 17 ued ibuprofen (MOTRIN) 800 mg Take 800 mg by mouth 04/11/20 Discontin tablet every 6 hours as needed 17 ued for Pain. VIT Take by mouth. 03/25/20 Discontin W-CA,FE,FA(<1 MG) 17 ued ( VITAMIN PO) other 1 Dose daily. 03/25/20 Discontin medicationIndications: Indications: One Source 17 ued One Source hair and nail hair and nail vitamin vitamin omeprazole DR(+) Take 1 Cap by mouth 90 Cap 1 02/04/20 03/25/20 Discontin (PRILOSEC) 40 mg capsule daily. Take 30 minutes 15 17 ued before morning meal. traMADol (ULTRAM) 50 mg Take 1 Tab by mouth twice 60 Tab 1 07/18/19 03/25/20 Discontin tablet daily. 16 17 ued fluoxetine (PROZAC) 20 mg Take 60 mg by mouth at 04/11/20 Discontin capsule bedtime daily. 17 ued HYDROcodone/acetaminophen Take 1 tablet by mouth 04/11/20 Discontin (NORCO) 7.5/325 mg tablet every 6 hours as needed 17 ued for Pain Active Problems Problem Noted Date Left renal mass 04/10/2017 Renal mass 03/21/2017 Overview: Added automatically from request for surgery [id number] 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 06/24/2013 Overview: S/P HOLLAND, BSO 11/27 Depression 06/24/2013 S/P cholecystectomy 06/24/2013 Overview: 2007 S/P appendectomy 06/24/2013 Overview: November 2012 Pancreatitis 10/23/2011 Encounters Date Type Specialty Care Team Description 04/13/2017 Telephone Urology Katharina Vann MD General Question 04/10/2017 Hospital Abel Poe MD Renal mass - Encounter 04/11/2017 04/10/2017 Telephone Urology Randy Recio MD Error 04/10/2017 Procedure Pass 04/10/2017 Surgery Abel Poe MD NEPHRECTOMY LAPAROSCOPY 04/09/2017 Anesthesia Parvez Mayen SRNA Event 03/21/2017 Ancillary Radiology Outpatient, Radiologist Diagnosis unknown Orders 03/21/2017 Prep for Case Abel Poe MD 03/19/2017 Telephone Gastroenterology Randy Nunez MD Appointment Request 03/18/2017 Office Visit Oncology Abel Poe MD Renal mass (Primary Dx) 03/13/2017 Ancillary Radiology Outpatient, Radiologist Diagnosis unknown Orders 03/11/2017 Telephone Oncology Abel Poe MD Navigation Assessment 03/07/2017 Hospital Radiology Encounter 03/07/2017 Hospital Radiology Encounter 03/07/2017 Hospital Radiology Encounter from Last 3 Months Family History Medical History Relation Name Comments Diabetes Father Hypertension Father Cancer-Colon Maternal Grandfather Cancer Maternal Cervix Grandmother Cancer-Ovarian Maternal Grandmother Arthritis-rheumatoid Mother Cancer Mother Cervix Cancer-Ovarian Mother Hypertension Mother Heart Disease Other Relation Name Status Comments Father Alive Maternal Grandfather Maternal Grandmother Mother Alive Other Social History Tobacco Use Types Packs/Day Years [...] F) 04/11/2017 11:53 AM CDT Respiratory Rate 18 03/18/2017 11:28 AM CDT Oxygen Saturation 97% 04/11/2017 11:53 AM CDT Inhaled Oxygen - - Concentration Weight 114.1 kg (251 lb 8.7 oz) 04/10/2017 9:19 AM CDT Height 156.8 cm (5' 1.75") 03/18/2017 11:28 AM CDT Body Mass Index 46.38 04/10/2017 9:19 AM CDT Plan of Treatment Health Maintenance Due Date Last Done Comments PHYSICAL (COMPREHENSIVE) 1991 EXAM PERTUSSIS VACCINE 1995 TETANUS VACCINE 2001 CERVICAL CANCER SCREENING 2014 INFLUENZA VACCINE 01/15/2017 Procedures Procedure Name Priority Date/Time Associated Diagnosis Comments ANESTHESIA PERIPHERAL Routine 04/10/2017 Results for this NERVE BLOCK 6:48 PM CDT procedure are in the results section. NEPHRECTOMY LAPAROSCOPY 04/10/2017 Renal mass 12:05 PM CDT from Last 3 Months Results * CBC (04/11/2017 4:41 AM) Only the most recent of 2 results within the time period is included. Component Value Ref Range White Blood Cells [...] - 11 FL Specimen Performing Laboratory [facility] [address] [place] [address] * BASIC METABOLIC PANEL (04/11/2017 4:41 AM) Only the most recent of 2 results within the time period is included. Component Value Ref Range Sodium 138 137 [...] Pharmacist for questions. Specimen Performing Laboratory [facility] [address] [place] [address] * ANESTHESIA PERIPHERAL NERVE BLOCK (04/10/2017 6:48 PM) Narrative Argelia Munroe MD 04/10/20174:04 PM Anesthesia Procedure: Peripheral Nerve Block PERIPHERAL NERVE BLOCK Date/Time: 04/10/2017 3:53 PM Patient location: post-op Reason for block: post-op pain management Preprocedure checklist performed: 2 patient identifiers, risks & benefits discussed, patient evaluated, timeout performed, consent obtained, patient being monitored and sterile drape Sterile technique: - Proper hand washing - Cap, mask - Sterile gloves - Skin prep for antisepsis Peripheral Nerve Block Procedure Patient position: semi R lateral. Prep: ChloraPrep Monitoring: BP, EKG and continuous pulse ox Block type: TAPs Laterality: left Injection technique: single-shot Procedures: ultrasound guided Ultrasound image captured Local infiltration: lidocaine Needle/cathether: Needle type: Tuohy Needle gauge: 18 G; Needle length: 4 in Needle location: anatomical landmarks and ultrasound guidance Procedure Outcome Injection assessment: negative aspiration for heme, no paresthesia on injection and incremental injection Observations: adequate block, patient sedated but conversant throughout block, patient tolerated the procedure well with no immediate complications and comfortable throughout block Refer to nursing documentation for vitals and monitoring data during procedure. Performed by: ARGELIA MUNROE Authorized by: TREMAINE MELENDEZ SURGICAL PATHOLOGY (04/10/2017 3:00 PM) Component Value Ref Range PATHOLOGY REPORT [facility] [email or web address] Shaylee Black MD, PhD, Director of Anatomic Pathology Department of Pathology and Laboratory Medicine [address] [place] [id number] Surgical Pathology Office: [phone] SURGICAL PATHOLOGY REPORT NAME: JAYLYN DELGADO SURG PATH #: [id number] MR #: [id number] SPECIMEN CLASS: SR BILLING #: [id number] ALT ID #: LOCATION: 53 DATE OF PROCEDURE: 04/10/2017 AGE: 32 SEX: F DATE RECEIVED: 04/10/2017 : 1985 TIME RECEIVED: 15:00 PHYSICIAN: ABEL POE MD DATE OF REPORT: 04/11/2017 COPY TO: [...] status and/or prior pathology. Pursuant to the Nursing Faculty Program at the [facility] Pathology Department, selected slides from this case [...] this report. +++ +++ Marlo Bobby M.D. kssebastián/04/11/2017 ################################################## ###################### Material Received: A: left kidney [...] is inked black. Lymph nodes identified: No Kitchen Clerk sections of the specimen are submitted as follows: A1-A2 Vascular and ureteral margins. A3 Tumor to nearest capsule/Gerota's fascia including surrounding perinephric fat. A4 Tumor to adjacent normal kidney. A5 Tumor to renal pelvis. A6-A8 Tumor to renal sinus fat. pr/04/10/2017 Specimen Performing Laboratory [facility] RESULTS * BLOOD TYPE CONFIRMATION - ORDER ONLY IF REQUESTED BY LAB (04/10/2017 9:44 AM) Component Value Ref Range ABO/RH(D) A NEG Specimen Performing Laboratory [facility] [address] [place] [address] * TYPE & CROSSMATCH (04/10/2017 9:29 AM) Component Value Ref Range Units Ordered 0 Crossmatch Expires 04/13/2017 Record Check 2ND TYPE REQUIRED ABO/RH(D) A NEG Antibody Screen NEG Electronic Crossmatch YES Specimen Performing Laboratory [facility] [address] [place] [address] * GENERAL RAD CHEST EXTERNAL IMAGING (03/07/2017 12:30 AM) Narrative This order has been auto finalized and does not contain a result. * GENERAL RAD ABDOMEN EXTERNAL IMAGING (03/07/2017 12:15 AM) Narrative This order has been auto finalized and does not contain a result. * CT ABD/PEL EXTERNAL IMAGING (03/07/2017) Narrative This order has been auto finalized and does not contain a result. from Last 3 Months
--- OUTSIDE RECORDS SUMMARY | 2017-04-13 16:08 | XMS REPORT | Encounter Summary ---
Author Author [facility] Organization [facility] Address Unknown Phone Unavailable Care Team Providers Care Batch Mixer Operator Name Role Phone PCP Unavailable Encounter Details Date Type Department Care Team Description 04/10/2017 Procedure Pass Main Operating Room [address] [place], [place] [id number] Social History Tobacco Use Types Packs/Day Years Used Date Never Smoker Smokeless Tobacco: Never Used Alcohol Use Drinks/Week oz/Week Comments Yes Does not consume alcohol in excess. Sex Assigned at Date Recorded Not on file as of this encounter Functional Status Functional Status Response Date of Assessment Does the patient have a hearing impairment: No 04/10/2017 as of this encounter Plan of Treatment Not on fileas of this encounter Visit Diagnoses Not on filein this encounter
--- OUTSIDE RECORDS SUMMARY | 2017-04-13 16:08 | XMS REPORT | Encounter Summary ---
Author Author [facility] Organization [facility] Address Unknown Phone Unavailable Care Team Providers Care Pediatrician/Medical Doctor Name Role Phone PCP Unavailable Reason for Visit * Reason Comments Error Encounter Details Date Type Department Care Team Description 04/10/2017 Telephone [facility] Randy Recio MD Error Physicians - Urology [address] [facility] [address] FLO[address] [place] [address] [place] [address] OFFICE BLDG [phone] [place] [address] Social History Tobacco Use Types [...]
--- OUTSIDE RECORDS SUMMARY | 2017-04-13 16:10 | XMS REPORT | Encounter Summary ---
Author Author [facility] Organization [facility] Address Unknown Phone Unavailable Care Team Providers Care Dry Ice Maker Name Role Phone PCP Unavailable Reason for Visit * Reason Comments Heme/Onc Care Encounter Details Date Type Department Care Team Description 03/18/2017 Office Visit [facility] Abel Poe MD Renal mass (Primary Dx) [facility] - [facility] Exam [address] [place] [address] [place] [address] [phone] Social History Tobacco Use Types Packs/Day Years Used Date Never Smoker Smokeless Tobacco: Never Used Alcohol Use Drinks/Week oz/Week Comments Yes Does not consume alcohol in excess. Sex Assigned at Date Recorded Not on file as of this encounter Last Filed Vital Signs Vital Sign Reading Time Taken Blood Pressure 141/91 03/18/2017 11:28 AM CDT Pulse 92 03/18/2017 11:28 AM CDT Temperature 36.7 C (98 F) 03/18/2017 11:28 AM CDT Respiratory Rate 18 03/18/2017 11:28 AM CDT Oxygen Saturation 98% 03/18/2017 11:28 AM CDT Inhaled Oxygen - - Concentration Weight 113.6 kg (250 lb 6.4 oz) 03/18/2017 11:28 AM CDT Height 156.8 cm (5' 1.75") 03/18/2017 11:28 AM CDT Body Mass Index 46.17 03/18/2017 11:28 AM CDT in this encounter Progress Notes * Abel Poe MD - 03/18/2017 1:00 PM CDT Formatting of this note may be different from the original. Name: Janeth Rajput : 1985 AGE: 31 y.o. DATE OF SERVICE: 03/18/2017 Subjective: Reason for Visit: Left renal mass Heme/Onc Care Janeth Rajput is a 31 y.o. female. No matching staging information was found for the patient. History of Present Illness History of Present Illness: 31 year old female presented to [facility] ED in [place], [place] on 03/07/17 with right upper quadrant pain. Incidental finding of a left renal mass on imaging. 03/07/17 Lab: Creatinine: 0.67 GFR: >60 03/07/17 CT abdomen/pelvis with contrast: Impression: 1. 3.1 cm enhancing mass is seen in the upper pole of the left kidney projecting in the upper aspect of the renal sinus high suggestive of renal cell carcinoma. No renal vein tumor thrombus or regional lymphadenopathy is seen 2. Hepatic steatosis Patient has significant past medical history of pancreatitis, abdominal pain, hysterectomy, cholecystectomy. Continues to have pain and prompted 2 ED visits in the last few weeks. Patient has significant FH of cancer and asking about genetic counseling PMHx: Past Medical History: Diagnosis Date Abdominal pain, chronic, epigastric Acute pancreatitis Of unclear etiology Asthma Biliary dyskinesia Colon polyp History of inflamed juvenile polyp versus adenoma Constipation Hematochezia Major depressive disorder With prior suicide attempts Meningitis At age 3 months old Morbid obesity (HCC) Nausea and vomiting Intermittent, normal gastric emptying study Ovarian cyst Pancreatitis EUS showing changes of chronic pancreatitis Trichotillomania Vitamin D deficiency Weight gain Unintentional significant SurgHx: Past Surgical History: Procedure Laterality Date CHOLECYSTECTOMY 06/2005 UPPER GASTROINTESTINAL ENDOSCOPY 04/2009 LIPOMA RESECTION 06/2009 Abdominal wall lipoma removal COLONOSCOPY 01/2010 TRIGGER POINT INJECTION (1-2 MUSCLE GROUPS) 03/2010 Epigastric region with bupivacaine HX HYSTERECTOMY total CELIAC PLEXUS BLOCK HX KNEE SURGERY , removal of "extra bone" HX TONSILLECTOMY Allergies: Allergies Allergen Reactions Demerol (Pf) [Meperidine (Pf)] UNKNOWN Fentanyl UNKNOWN Penicillins UNKNOWN SocHx: Social History Social History Marital status: Single Spouse name: N/A Number of children: N/A Years of education: N/A Occupational History Disabled Social History Main Topics Smoking status: Never Smoker Smokeless tobacco: Never Used Alcohol use Yes Comment: Does not consume alcohol in excess. Drug use: No Sexual activity: Not Asked Other Topics Concern None Social History Narrative FamHx: Family History Problem Relation Age of Onset Hypertension Father Diabetes Father Cancer-Ovarian Mother Cancer Mother Cervix Arthritis-rheumatoid Mother Hypertension Mother Cancer-Ovarian Maternal Grandmother Cancer Maternal Grandmother Cervix Cancer-Colon Maternal Grandfather Heart Disease Other Review of Systems +activity and appetitite change, chills, diaphoresis, fatigue, sneezing, sore throat, abdominal pain, constipation, diarrhea, nausea, rectal pain, vomiting, back pain, rash, dizziness, HAD, light headedness, anxious Rest of comprehensive ROS is negative Objective: busPIRone (BUSPAR) 5 mg tablet Take 5 mg by mouth three times daily. DIPHENHYDRAMINE HCL (BENADRYL ALLERGY PO) Take by mouth as Needed. estradiol (ESTRACE) 1 mg tablet Take 1 mg by mouth daily. fluoxetine (PROZAC) 20 mg capsule Take 20 mg by mouth daily. hydrocodone-acetaminophen (NORCO) 5-325 mg per tablet Take 1 Tab by mouth at bedtime daily. ibuprofen (MOTRIN) 800 mg tablet Take 800 mg by mouth every 6 hours as needed for Pain. jutmdt-guhaemmd-bctiooc (ZENPEP) 40,000-136,000- 218,000 unit cpDR Take 80, 000 Units by mouth three times daily with meals. (take 2 caps with meals, 1 cap with snacks. omeprazole DR(+) (PRILOSEC) 40 mg capsule Take 1 Cap by mouth daily. Take 30 minutes before morning meal. ondansetron (ZOFRAN ODT) 8 mg rapid dissolve tablet DISSOLVE ONE TABLET IN MOUTH EVERY 8 HOURS NEEDED FOR NAUSEA; NEED GI OFFICE VISIT FOR ANY ADDITIONAL REFILLS ondansetron (ZOFRAN) 4 mg tablet Take 1 Tab by mouth three times daily as needed for Nausea. other medication 1 Dose daily. Indications: One Source hair and nail vitamin pravastatin (PRAVACHOL) 40 mg tablet Take 40 mg by mouth daily. prazosin (MINIPRESS) 2 mg capsule Take 2 mg by mouth at bedtime daily. VIT W-CA,FE,FA(<1 MG) ( VITAMIN PO) Take by mouth. rOPINIRole (REQUIP) 2 mg tablet Take 2 mg by mouth at bedtime daily. scopolamine (TRANSDERM-SCOP) 1.5 mg patch Apply 1 Patch to top of skin as directed every 72 hours. Do not use more than one patch in 72 hours. traMADol (ULTRAM) 50 mg tablet Take 1 Tab by mouth twice daily. vortioxetine (BRINTELLIX) 10 mg tab Take 10 mg by mouth daily. Vitals: 03/18/17 1128 BP: (!) 141/91 Pulse: 92 Resp: 18 Temp: 36.7 C (98 F) TempSrc: Oral SpO2: 98% Weight: 113.6 kg (250 lb 6.4 oz) Height: 156.8 cm (61.75") Body mass index is 46.17 kg/(m^2). Pain Score: Six Pain Loc: Abdomen Pain Addressed: N/A Patient Evaluated for a Clinical Trial: No treatment clinical trial available for this patient. Eastern Cooperative Oncology Group performance status is 1, Restricted in physically strenuous activity but ambulatory and able to carry out work of a light or sedentary nature, e.g., light house work, office work. Physical Exam Alert in minimal distress Neuro grossly intact Breathing unlabored Skin without rashes Assessment and Plan: Ms. Rajput is a very pleasant 31 y/o female with a newly found left renal mass. The mass is 2-3 cm in size and enhancing with IV contrast. I went through the cross sectional image findings with the patient. We discussed the implications of enhancing renal masses and the natural history of kidney cancer. I explained that there is a small chance the renal mass is a benign lesion. We went over an extensive discussion about the potential management of a small renal mass. These include active surveillance with or without biopsy, biopsy of the mass and subsequent decision, ablative therapy with cryotherapy, RFA, or microwave, partial nephrectomy (robotic, laparoscopic , open), and radical nephrectomy. Given the endophytic nature of the mass, lap nephrectomy would be the most reasonable. The goals of surgery, the anticipated hospital course and the potential risks were described in great detail. The risks include but are not limited to bleeding, infection, wound problems such as hernia/dehiscence/abscess , injury to other organs such as the liver, bowel, pancreas, spleen, major/ minor vasculature, nerves, delayed bleed, need for further procedures, inability to complete the procedure, need to perform open surgery, potential need for dialysis, neuropraxias from positioning, DC, PE, stroke and . Patient verbalized understanding of the risks. Patient is interested in ablative techniques. I explained due to the location, I would ask Dr. Frederick if ablation would be reasonable and let the patient know. 45 minutes was spent face to face of which the majority was counseling and coordinating care in this encounter Plan of Treatment Not on fileas of this encounter Visit Diagnoses Diagnosis Renal mass - Primary Unspecified disorder of kidney and ureter in this encounter
--- OUTSIDE RECORDS SUMMARY | 2017-04-13 16:10 | XMS REPORT | Encounter Summary ---
Author Author [facility] Organization [facility] Address Unknown Phone Unavailable Care Team Providers Care International Project Manager Name Role Phone PCP Unavailable Encounter Details Date Type Department Care Team Description 03/21/2017 Ancillary Rad Outpatient, Radiologist Diagnosis unknown Orders [address] [place], [place] [id number] Social History Tobacco Use Types Packs/Day Years Used Date Never Smoker Smokeless Tobacco: Never Used Alcohol Use Drinks/Week oz/Week Comments Yes Does not consume alcohol in excess. Sex Assigned at Date Recorded Not on file as of this encounter Plan of Treatment Not on fileas of this encounter Results * GENERAL RAD CHEST EXTERNAL IMAGING (03/07/2017 [...]
--- OUTSIDE RECORDS SUMMARY | 2017-04-13 16:10 | XMS REPORT | Encounter Summary ---
Author Author [facility] Organization [facility] Address Unknown Phone Unavailable Care Team Providers Care Cooperative Manager Name Role Phone PCP Unavailable Reason for Visit * Reason Comments Appointment Request Encounter Details Date Type Department Care Team Description 03/19/2017 Telephone [facility] Randy Nunez MD Appointment Request Physicians - Internal [address] [facility] Medicine [place] [address] [place] [address] [place] [address] Social History Tobacco Use Types Packs/Day Years Used Date Never Smoker Smokeless Tobacco: Never Used Alcohol Use Drinks/Week oz/Week Comments Yes Does not consume alcohol in excess. Sex Assigned at Date Recorded Not on file as of this encounter Miscellaneous Notes * Telephone Encounter - Arleen Leone RN - 03/19/2017 9:54 AM CDT Patient was transferred from Scheduling to nursing regarding appointment. Offered for patient to be seen tomorrow and patient elects to wait until 2016 due to distance of travel. States recently diagnosed with renal mass awaiting to hear back from Uro regarding next steps regarding treatment. in this encounter Plan of Treatment Not on fileas of this encounter Visit Diagnoses Not on filein this encounter
--- OUTSIDE RECORDS SUMMARY | 2017-04-13 16:10 | XMS REPORT | Encounter Summary ---
Author Author [facility] Organization [facility] Address Unknown Phone Unavailable Care Team Providers Care Aquatic Instructor Name Role Phone PCP Unavailable Reason for Visit * Auth/Cert Status Reason Specialty Diagnoses / Referred By Referred To Procedures Contact Contact Diagnoses Renal mass unknown P rocedures NEPHRECTOMY LAPAROSCOPY Encounter Details Date Type Department Care Team Description 04/10/2017 Anesthesia Main Operating Room Toddlou ParvezMONIE [address] [place] [address] Social History Tobacco Use Types Packs/Day Years Used Date Never Smoker Smokeless Tobacco: Never Used Alcohol Use Drinks/Week oz/Week Comments Yes Does not consume alcohol in excess. Sex Assigned at Date Recorded Not on file as of this encounter OR Notes * Anesthesia Postprocedure Evaluation - Dann Lopez MD - 04/10/2017 8: 55 PM CDT Post-Anesthesia Evaluation Name: Janeth Rajput : 1985 Age: 32 y.o. Sex: female Procedure Date: 04/10/2017 Procedure: Procedure(s) with comments: NEPHRECTOMY LAPAROSCOPY - CASE LENGTH 3 HOURS Surgeon: Surgeon(s): MD Randy Viveros MD Post-Anesthesia Vitals BP: 145/75 (04/10 1946) Temp: 37.2 C (98.9 F) (04/10 1946) Pulse: 97 (04/10 1946) Respirations: 18 PER MINUTE (04/10 1946) SpO2: 98 % (04/10 1946) O2 Delivery: Nasal Cannula (04/10 1946) SpO2 Pulse: 84 (04/10 1645) Post Anesthesia Evaluation Note Evaluation location: Pre/Post Patient participation: recovered; patient participated in evaluation Level of consciousness: alert Pain management: adequate Hydration: normovolemia Temperature: 36.0C - 38.4C Airway patency: adequate Regional/Neuraxial: Neurological status: sensory deficit Single injection shot performed Perioperative Events Perioperative events: no Post-op nausea and vomiting: nausea; resolved Postoperative Status Cardiovascular status: hemodynamically stable Respiratory status: spontaneous ventilation and supplemental oxygen (2L NC) Follow-up needed: none Perioperative Events Perioperative Event: No Emergency Case Activation: No Associated attestation - Paulo Faust MD - 04/10/2017 9:04 PM CDT I have reviewed the history and assessment of the patient, Janeth Rajput by Dr. Dann Lopez. We have discussed the diagnosis and treatment plan together. Paulo Faust MD * Anesthesia Procedure Notes - Argelia Munroe MD - 04/10/2017 4:02 PM CDT Associated Order(s): ANESTHESIA PERIPHERAL NERVE BLOCK Anesthesia Procedure: Peripheral Nerve Block PERIPHERAL NERVE [...] procedure. Performed by: ARGELIA MUNROE Authorized by: JULIO GOMES Associated attestation - Julio Gomes MD - 04/10/2017 6:48 PM CDT Formatting of this note may be different from the original. ATTESTATION I was present during the entire procedure performed by a fellow Staff name: Julio Gomes MD Date: 04/10/2017 * Anesthesia Preprocedure Evaluation - Tish Kuhn MD - 04/10/2017 9:51 AM CDT Formatting of this note may be different from the original. Anesthesia Pre-Procedure Evaluation Name: Janeth Rajput : 1985 Age: 32 y.o. Sex: female Procedure Date: 04/10/2017 Procedure: Procedure(s) with comments: NEPHRECTOMY LAPAROSCOPY - CASE LENGTH 3 HOURS Physical Assessment Vital Signs (last filed in past 24 hours): BP: 122/74 (04/10 919) Temp: 36.5 C (97.7 F) (04/10 919) Pulse: 60 (04/10 919) Respirations: 18 PER MINUTE (04/10 919) SpO2: 98 % (04/10 919) O2 Delivery: None (Room Air) (04/10 919) Weight: 114.1 kg (251 lb 8.7 oz) (04/10 919) Patient History Allergies Allergen Reactions Penicillins UNKNOWN Demerol (Pf) [Meperidine (Pf)] ITCHING Fentanyl ITCHING Current Medications Medication Directions DIPHENHYDRAMINE HCL (BENADRYL ALLERGY PO) Take by [...] 4 mg by mouth at bedtime daily. Review of Systems/Medical History Patient summary reviewed Pertinent labs reviewed PONV Screening: Hx PONV/motion sickness No history of anesthetic complications No family history of anesthetic complications Pulmonary Asthma (mild asthma) Loud snoring; Patient reports sleep study ~ 2 years ago which was negative for sleep apnea Cardiovascular - negative Exercise tolerance: >4 METS GI/Hepatic/Renal GERD, well controlled Left renal mass Chronic pancreatitis Intermittent N/V; Denies N/V today H/o cholecystectomy Neuro/Psych Psychiatric history (h/o suicide attempt in past; No current suicidial ideations ) Depression RLS Musculoskeletal - negative Endocrine/Other Obesity H/o hysterectomy/BSO secondary to endometriosis Physical Exam Airway Findings Mallampati: I TM distance: >3 FB Neck ROM: full Mouth opening: good Comments: Short neck Dental Findings: Negative Cardiovascular Findings: Negative Pulmonary Findings: Negative Abdominal Findings: Obese Diagnostic Tests Hematology: Lab Results Component Value Date HGB 12.5 04/10/2017 HCT 36.1 04/10/2017 PLTCT 300 04/10/2017 WBC 9.6 04/10/2017 NEUT 65 05/22/2011 ANC 5.83 05/22/2011 ALC 2.48 05/22/2011 DELICIA 5 05/22/2011 AMC 0.43 05/22/2011 EOSA 2 05/22/2011 ABC 0.04 05/22/2011 MCV 81.8 04/10/2017 MCH 28.3 04/10/2017 MCHC 34.5 04/10/2017 MPV 7.4 04/10/2017 RDW 13.4 04/10/2017 General Chemistry: Lab Results Component Value Date NA 140 06/24/2013 K 4.0 06/24/2013 CL 105 06/24/2013 CO2 26 06/24/2013 GAP 9 06/24/2013 BUN 9 06/24/2013 CR 0.59 06/24/2013 GLU 117 06/24/2013 CA 10.4 06/24/2013 ALBUMIN 4.8 06/24/2013 TOTBILI 0.4 06/24/2013 Coagulation: No results found for: PT, PTT, INR Anesthesia Plan ASA score: 3 Plan: general and regional for postoperative pain Induction method: intravenous NPO status: acceptable Comments: (Risks of GETA including sore throat, oral/dental injury, allergic reactions, PONV, aspiration, respiratory failure, OH, CVA discussed with patient who reports understanding and consents to anesthetic plan. Araseli Kuhn M.D. ) Informed Consent Anesthetic plan and risks discussed with patient and mother. Use of blood products discussed with patient; consented to blood products. Plan discussed with: anesthesiologist, surgeon/proceduralist, RECREATION THERAPY AIDE and SRNA. in this encounter Plan of Treatment Not on fileas of this encounter Results * ANESTHESIA PERIPHERAL NERVE BLOCK (04/10/2017 6:48 [...] procedure. Performed by: ARGELIA MUNROE Authorized by: JULIO GOMES in this encounter Visit Diagnoses Not on filein this encounter Administered Medications Medication Order MAR Action Action Date Dose Rate Site acetaminophen (OFIRMEV) injection Given 04/10/2017 1,000 mg Administer over 15 Minutes, 13:52 CDT INTRA-PROCEDURE MED, Starting Sat04/10/17 at 1352, Until Sat04/10/17 at 1449, Pain non-opioid: may be used alone or in combination with opioid analgesia, Anesthesia Intra-op albuterol (PROAIR HFA, VENTOLIN HFA, or Given 04/10/2017 6 puffs PROVENTIL HFA) inhaler 14:02 CDT INTRA-PROCEDURE MED, Starting Sat04/10/17 at 1402, Until Sat04/10/17 at 1449, RT PROTOCOL, Anesthesia Intra-op bupivacaine liposome (PF) (EXPAREL) 20 Given - New 04/10/2017 60 mL mL, bupivacaine (MARCAINE) 0.25 % 40 mL Bag 15:53 CDT 60 mL syringe Block, ONCE IN OR, 1 dose, Sat04/10/17 at 1530, Inject slowly into tissues with trained technique. Note: Bupivacaine, ropivacaine, and lidocaine contraindicated within 96 hours of administration of this drug. Apply Exparel wristband to patient wrist with date and time of Exparel administration. DO NOT remove wristband for 96 hours from date and time administered. >>>>>>>>>>>>>>>EXPAREL WRISTBAND REQUIRED<<<<<<<<<<<<<<< NOTE: This is a HIGH ALERT Medication. dexamethasone (DECADRON) injection Given 04/10/2017 8 mg Intravenous, INTRA-PROCEDURE MED, 12:15 CDT Starting Sat04/10/17 at 1215, Until Sat04/10/17 at 1449, Nausea/Vomiting Injectable, Anesthesia Intra-op diphenhydrAMINE (BENADRYL) injection Given 04/10/2017 12.5 mg INTRA-PROCEDURE MED, Starting Sat 12:15 CDT 04/10/17 at 1215, Until Sat04/10/17 at 1449, Anesthesia Intra-op electrolyte-A (PLASMA-LYTE A PH 7.4) Given - New 04/10/2017 injection Bag 12:03 CDT INTRA-PROCEDURE MED(CONT), Starting Sat04/10/17 at 1203, Until Sat04/10/17 at 1449, Anesthesia Intra-op fentaNYL citrate PF (SUBLIMAZE) Given 04/10/2017 50 mcg injection 12:01 CDT INTRA-PROCEDURE MED, Starting Sat04/10/17 at 1155, Until Sat04/10/17 at 1449, Pain Injectable, Anesthesia Intra-op Given 04/10/2017 50 mcg 12:28 CDT Given 04/10/2017 50 mcg 13:22 CDT ketamine (KETALAR) injection Given 04/10/2017 20 mg INTRA-PROCEDURE MED, Starting Sat 11:59 CDT 04/10/17 at 1159, Until Sat04/10/17 at 1449, Anesthesia Intra-op Given 04/10/2017 20 mg 12:51 CDT lactated ringers infusion Given - New 04/10/2017 1,000 mL 20 mL/hr 1,000 mL, 1,000 mL, Intravenous, at 20 Bag 09:37 CDT mL/hr, CONTINUOUS, Starting Sat04/10/17 at 0915, Until Viviana 04/11/17 at 0611, Pre-Op Given - New Bag 04/10/2017 12:03 CDT Given - New Bag 04/10/2017 1,000 mL 20 mL/hr 15:12 CDT lidocaine (PF) injection Given 04/10/2017 80 mg INTRA-PROCEDURE MED, Starting Sat 11:55 CDT 04/10/17 at 1155, Until Sat04/10/17 at 1449, Anesthesia Intra-op midazolam (VERSED) injection Given 04/10/2017 2 mg Intravenous, INTRA-PROCEDURE MED, 11:38 CDT Starting Sat04/10/17 at 1138, Until Sat04/10/17 at 1449, Agitation Injectable, Anxiety Injectable, Anesthesia Intra-op propofol (DIPRIVAN) injection Given 04/10/2017 200 mg INTRA-PROCEDURE MED, Starting Sat 11:55 CDT 04/10/17 at 1155, Until Sat04/10/17 at 1449, Anesthesia Intra-op rocuronium (ZEMURON) injection Given 04/10/2017 50 mg Intravenous, INTRA-PROCEDURE MED, 11:55 CDT Starting Sat04/10/17 at 1155, Until Sat04/10/17 at 1449, Anesthesia Intra-op Given 04/10/2017 20 mg 12:34 CDT Given 04/10/2017 10 mg 13:45 CDT sugammadex (BRIDION) injection Given 04/10/2017 230 mg Intravenous, INTRA-PROCEDURE MED, 14:31 CDT Starting Sat04/10/17 at 1431, Until Sat04/10/17 at 1449, Anesthesia Intra-op in this encounter
--- OUTSIDE RECORDS SUMMARY | 2017-04-13 16:10 | XMS REPORT | Encounter Summary ---
Author Author [facility] Organization [facility] Address Unknown Phone Unavailable Care Team Providers Care Examination Grader Name Role Phone PCP Unavailable Reason for Visit * Auth/Cert Status Reason Specialty Diagnoses / Referred By Referred To Procedures Contact Contact Diagnoses Renal mass unknown P rocedures NEPHRECTOMY LAPAROSCOPY Encounter Details Date Type Department Care Team Description 04/10/2017 Surgery Main Operating Room Abel Heart MD NEPHRECTOMY LAPAROSCOPY [address] [place] [address] [address] [place] [address] Social History Tobacco Use Types [...] (Aleve) You may use acetaminophen (Tylenol) and [place] Morning of surgery On the morning of surgery, do NOT take these medications: Remaining vitamins/supplements Ointments/creams/lotions On the morning of surgery, take ONLY these medications with a sip (1-2 ounces) of water: [place] If needed Zofran if needed Other information Before surgery, please contact TIMUR Barajas with any medicine updates or questions. E-mail: [email or web address] Before going home from the hospital, [...] to admissions in the lobby of the [facility]. If you cannot obtain this soap, use [...] and any other valuables at home. The [facility] is not responsible for the loss or breakage of personal items. Remove nail kazakh, makeup and all jewelry (including piercings) before coming to the hospital. The morning of your procedure: brush your teeth and tongue do not smoke do not shave the area where you will have surgery What to bring to the hospital ID/ Insurance Card Architectural Engineer card Official documents for legal guardianship Copy of your Living Will, Advanced Directives, and/or Durable Power of Systems Integration Analyst Small bag with a few personal belongings [...] a call by 4:00 you may call [phone] or [phone] after 4:30. Notify us at [facility]: if you need to cancel your procedure if you are going to be late Arrival at the [facility]: Park in the [place] [facility] located directly across from the main entrance to the hospital. Electronic Organ Technician parking is available from 7 AM to [...] of this encounter Progress Notes * Venecia Wheeler RN - 04/11/2017 2:30 PM CDT RN in [...] original. Urology Progress Note 04/11/2017 ASSESSMENT: Janeth R Best is a 32 y.o. Female with left [...] Vann MD PGY-1 Urology Please page urology infantry weapons officer with questions ATTESTATION I personally performed the [...] and adjust therapy as needed. Bruna Fletcher, PHARMCarter 04/10/2017 * Mariana Gallo, RT - 04/10/2017 [...] Rx *Higher points indicate higher acuity. Therapist: RT Gerardo Date: 04/10/2017 Guillermo AC=Airway clearance AM=Aerosolized medication BA=[place]ilion aerosol DB&C=Deep breathe & cough FEV1=Forced expiratory volume in first second) IC=Inspiratory capacity LE=Lung expansion MDI=Metered dose inhaler Neb=Nebulizer O2=Oxygen Oxim=Oximetry PEFR=Peak expiratory flow rate WATER CONSERVATION SPECIALIST=Rapid Response Team * Venecia Wheeler RN - [...] for 7 days. May take Zofran and [place] day of surgery. NPO after 11:00 pm [...] Filed in 24 hours) BP: 106/57 (04/11 0805) Temp: 36.7 C (98 F) (04/11 805) [...] was induced. The patient was intubated. A 16-Jamaican Romero catheter was placed per urethra under [...] Specimen Performing Laboratory [facility] [address] [place] [address] * BASIC METABOLIC PANEL (04/11/2017 4:41 AM) [...] Performing Laboratory [facility] [address] [place] [address] * SURGICAL PATHOLOGY (04/10/2017 3:00 PM) Component Value Ref Range PATHOLOGY REPORT [facility] [email or web address] Shaylee Black MD, PhD, Director of Anatomic Pathology Department of Pathology and Laboratory Medicine [address] [place] [id number] Surgical Pathology Office: [phone] SURGICAL PATHOLOGY REPORT NAME: JANETH DELGADO SURG PATH #: [id number] MR #: [id number] SPECIMEN CLASS: SR BILLING #: [id number] ALT ID #: LOCATION: 53 DATE OF [...] status and/or prior pathology. Pursuant to the Loss Prevention Manager Program at the [facility] Pathology Department, selected slides from this case [...] is inked black. Lymph nodes identified: No Machining Manager sections of the specimen are submitted as follows: A1-A2 Vascular and ureteral margins. A3 Tumor to nearest capsule/Gerota's fascia including surrounding perinephric fat. A4 Tumor to adjacent normal kidney. A5 Tumor to renal pelvis. A6-A8 Tumor to renal sinus fat. ok/04/10/2017 Specimen Performing Laboratory [facility] RESULTS * BLOOD TYPE CONFIRMATION - ORDER ONLY IF REQUESTED BY LAB (04/10/2017 9:44 AM) Component Value Ref Range ABO/RH(D) A NEG Specimen Performing Laboratory [facility] [address] [place] [address] * TYPE & CROSSMATCH (04/10/2017 9:29 AM) Component Value Ref Range Units Ordered 0 Crossmatch Expires 04/13/2017 Record Check 2ND TYPE REQUIRED ABO/RH(D) A NEG Antibody Screen NEG Electronic Crossmatch YES Specimen Performing Laboratory [facility] [address] [place] [address] * BASIC METABOLIC PANEL (04/10/2017 9:29 AM) [...] Performing Laboratory [facility] [address] [place] [address] * CBC (04/10/2017 9:29 AM) Component Value [...] Performing Laboratory [facility] [address] [place] [address] in this encounter Visit Diagnoses Diagnosis Renal mass Unspecified disorder of kidney and ureter in this encounter Admitting Diagnoses Diagnosis Renal mass - unknown Unspecified disorder of kidney and ureter Left renal mass in this encounter Administered Medications Medication Order MAR Action Action Date Dose Rate Site bupivacaine (MARCAINE) 0.25 % injection Given 04/10/2017 40 mL INTRA-PROCEDURE MED, Starting Sat 14:07 CDT 04/10/17 at 1407, Until Sat04/10/17 at 1730, Intra-op in this encounter
--- OUTSIDE RECORDS SUMMARY | 2017-04-13 16:10 | XMS REPORT | Encounter Summary ---
Author Author [facility] Organization [facility] Address Unknown Phone Unavailable Care Team Providers Care Gas Meter Repair Supervisor Name Role Phone PCP Unavailable Encounter Details Date Type Department Care Team Description 03/21/2017 Prep for Case XDD UROLOGY Abel Poe MD [address] [facility] [address] [place] [address] Social History Tobacco Use Types [...]
--- OUTSIDE RECORDS SUMMARY | 2017-04-13 16:11 | XMS REPORT | Encounter Summary ---
Author Author [facility] Organization [facility] Address Unknown Phone Unavailable Care Team Providers Care Sheep Farm Manager Name Role Phone PCP Unavailable Reason for Visit * Reason Comments Navigation Assessment Encounter Details Date Type Department Care Team Description 03/11/2017 Telephone [facility] Abel Poe MD Navigation Assessment [facility] [address] [place] [address] [place] [address] [phone] Social History Tobacco Use Types Packs/Day Years Used Date Never Smoker Alcohol Use Drinks/Week oz/Week Comments Yes Does not consume alcohol in excess. Sex Assigned at Date Recorded Not on file as of this encounter Miscellaneous Notes * Telephone Encounter - Sheila Warren RN - 03/17/2017 4:08 PM CDT Navigation Intake Assessment Document Patient Name: Janeth Rajput : 1985 Insurance: Medicare/Medicaid Appointment Info: Note 2 appointments: [facility]: 03/18/17 Dr. Abel Poe Arrive at 12:30 pm registration/ appointment 1;00 pm. PAT at 3:00 pm if required. Diagnosis & Reason for Visit: Left renal mass Physician Info: Referring Physician: Pablo Barker MD Contact Name & Number: [phone] Surgeon: Refer to Urology PCP: Mary Whittington MD PCP Location of Films: PACS Location of Pathology: no pathology History of Present Illness: 31 year old female presented to [facility] ED in [place], [place] on 03/07/17 with right upper quadrant [...] regional lymphadenopathy is seen 2. Hepatic steatosis Comments: Patient verbalized understanding of appointment date, time, and location. Resource Guide sent to home address by [employer]. Patient has my name and number if questions. NEEDS Assessment: Genetic Counseling: Not discussed Nutrition: Patient provided information on all available services Social Work/Financial: Patient provided information on available services Spiritual & Emotional: Emotional support provided and Patient provided information on available services Physical: No needs identified Communication: No needs identified Oncofertility - Females age 40 and under; Males age 50 and under : Not applicable in this encounter Plan of Treatment Not on fileas of this encounter Visit Diagnoses Not on filein this encounter
--- OUTSIDE RECORDS SUMMARY | 2017-04-13 16:11 | XMS REPORT | Encounter Summary ---
Author Author [facility] Organization [facility] Address Unknown Phone Unavailable Care Team Providers Care Computer Repair Instructor Name Role Phone PCP Unavailable Encounter Details Date Type Department Care Team Description 03/07/2017 Hospital [facility] Encounter Hospital Radiology [address] [place] [address] Social History Tobacco Use Types Packs/Day Years Used Date Never Smoker Alcohol Use Drinks/Week oz/Week Comments Yes Does not consume alcohol in excess. Sex Assigned at Date Recorded Not on file as of this encounter Medications at Time of Discharge Medication Sig. Disp. Refills Start Date End Date ondansetron (ZOFRAN ODT) DISSOLVE ONE TABLET IN 60 Tab 0 12/25/2016 8 mg rapid dissolve MOUTH EVERY 8 HOURS tablet NEEDED FOR NAUSEA; NEED GI OFFICE VISIT FOR ANY ADDITIONAL REFILLS busPIRone (BUSPAR) 5 mg Take 5 mg by mouth three 03/25/2017 tablet times daily. DIPHENHYDRAMINE HCL Take by mouth as Needed. 04/11/2017 (BENADRYL ALLERGY PO) estradiol (ESTRACE) 1 mg Take 2 mg by mouth at 04/11/2017 tablet bedtime daily. hydrocodone-acetaminophen Take 1 Tab by mouth at 03/25/2017 (NORCO) 5-325 mg per bedtime daily. tablet ibuprofen (MOTRIN) 800 mg Take 800 mg by mouth 04/11/2017 tablet every 6 hours as needed for Pain. khooaj-iayybqdk-nmpcckc Take 80,000 Units by 240 Cap 6 01/31/2015 (ZENPEP) 40,000-136,000- mouth three times daily 218,000 unit with meals. (take 2 caps cpDRIndications: Other with meals, 1 cap with chronic pancreatitis snacks. (HCC) omeprazole DR(+) Take 1 Cap by mouth 90 Cap 1 02/03/2015 03/25/2017 (PRILOSEC) 40 mg capsule daily. Take 30 minutes before morning meal. ondansetron (ZOFRAN) 4 mg Take 1 Tab by mouth three 60 Tab 1 201403/25/2017 tablet times daily as needed for Nausea. other 1 Dose daily. 03/25/2017 medicationIndications: Indications: One Source One Source hair and nail hair and nail vitamin vitamin pravastatin (PRAVACHOL) Take 40 mg by mouth 03/25/2017 40 mg tablet daily. prazosin (MINIPRESS) 2 mg Take 2 mg by mouth at 03/25/2017 capsule bedtime daily. VIT Take by mouth. 03/25/2017 W-CA,FE,FA(<1 MG) ( VITAMIN PO) rOPINIRole (REQUIP) 2 mg Take 4 mg by mouth at 04/11/2017 tablet bedtime daily. scopolamine Apply 1 Patch to top of 30 Patch 1 11/25/2014 03/25/2017 (TRANSDERM-SCOP) 1.5 mg skin as directed every 72 patch hours. Do not use more than one patch in 72 hours. traMADol (ULTRAM) 50 mg Take 1 Tab by mouth twice 60 Tab 1 07/18/2015 03/25/2017 tablet daily. vortioxetine (BRINTELLIX) Take 10 mg by mouth 03/25/2017 10 mg tab daily. as of this [...]
--- OUTSIDE RECORDS SUMMARY | 2017-04-13 16:11 | XMS REPORT | Encounter Summary ---
Author Author [facility] Organization [facility] Address Unknown Phone Unavailable Care Team Providers Care Merchandiser Retail Representative Name Role Phone PCP Unavailable Encounter Details Date Type Department Care Team Description 03/07/2017 Hospital [facility] Encounter Hospital Radiology [address] [place] [address] Social History Tobacco Use Types [...] every 6 hours as needed for Pain. gqlpep-mzgssqly-hjfmegx Take 80,000 Units by 240 Cap 6 [...] of this encounter Results * GENERAL RAD ABDOMEN EXTERNAL IMAGING (03/07/2017 12:15 AM) Narrative This order has been auto finalized and does not contain a result. in this encounter Visit Diagnoses Diagnosis Diagnosis unknown Other unknown and unspecified cause of morbidity or mortality in this encounter
--- OUTSIDE RECORDS SUMMARY | 2017-04-13 16:11 | XMS REPORT | Encounter Summary ---
Author Author [facility] Organization [facility] Address Unknown Phone Unavailable Care Team Providers Care Pmp Name Role Phone PCP Unavailable Encounter Details Date Type Department Care Team Description 03/13/2017 Ancillary Rad Outpatient, Radiologist Diagnosis unknown Orders [address] [place], [place] [id number] Social History Tobacco Use Types Packs/Day Years [...]
--- OUTSIDE RECORDS SUMMARY | 2017-04-13 16:11 | XMS REPORT | Encounter Summary ---
Author Author [facility] Organization [facility] Address Unknown Phone Unavailable Care Team Providers Care Environmental Officer Name Role Phone PCP Unavailable Encounter Details Date Type Department Care Team Description 03/07/2017 Hospital [facility] Encounter Hospital Radiology [address] [place] [address] Social History Tobacco Use Types [...] every 6 hours as needed for Pain. udvlmu-ufjdhnvp-rnsbmhf Take 80,000 Units by 240 Cap 6 [...]
--- OUTSIDE RECORDS SUMMARY | 2017-04-13 16:12 | XMS REPORT ---
Author Author SAI CARMEN [facility] Address [address] [place] [address] Care Team Providers Care Gas Specialist Name Role Phone CORTNEY GIBBSHANY Unavailable PROBLEMS Type Condition ICD9-CM Code [id number] Code Onset Dates Condition Status SNOMED Code Problem Hyperlipidemia, mixed E78.2 Active 308795859 Problem Asthma J45.909 Active 340843623 Problem Chronic pancreatitis K86.1 Active 958257268 Problem Trichotillomania F63.3 Active 92257769 Problem Chronic post-traumatic stress disorder (PTSD) F43.12 Active 461591393 Problem Atelectasis J98.11 Active 11760589 Problem Polydipsia R63.1 Active 60540881 Problem Generalized social phobia F40.11 Active 77465566 Problem Restless leg syndrome G25.81 Active 09925194 Problem Hirsuties L68.0 Active 704034066 Problem FH: polycystic ovary Z84.2 Active 018278063 Problem Chronic tension-type headache, intractable G44.221 Active 013835116 Problem Left kidney mass N28.89 Active 388664133 Problem Morbid (severe) obesity due to excess calories E66.01 Active 374864597 ALLERGIES Substance Reaction Event Type Date Status Penicillin V Potassium Unknown Drug Allergy Jul, Active Fentanyl Unknown Drug Allergy Jul, Active Demerol Unknown Drug Allergy Jul, Active SOCIAL HISTORY Never Assessed PLAN OF CARE Activity Details Follow Up 4 Weeks Reason:Results VITAL SIGNS Height 62 in 2016-08-14 Weight 250.0 lbs 2016-08-14 Temperature 98.6 degrees Fahrenheit 2016-08-14 Heart Rate 78 bpm 2016-08-14 Respiratory Rate 20 2016-08-14 BMI 45.72 kg/m2 2016-08-14 Blood pressure systolic 130 mmHg 2016-08-14 Blood pressure diastolic 76 mmHg 2016-08-14 MEDICATIONS Medication Instructions Dosage Frequency Start Date End Date Duration Status Ondansetron HCl 8 mg 1 tablet by Oral route every 8 hours PRN 04 Jul, 2014 Active Albuterol Sulfate (2.5 MG/3ML) 0.083% Inhalation Three times a day 3 ml 8h Jun, Active Ibuprofen 800 MG Orally Three times a day take 1 tablet (800 mg) by oral route 3 times per day with food 8h Mar, 30 days Active Ropinirole HCl 4 MG Active Hydrocodone-Acetaminophen 5-325 MG Orally every 6 hrs 1 tablet as needed 6h Active Azithromycin 250 MG Orally Once a day 2 tablets on the first day, then 1 tablet daily for 4 days 24h Jul, Aug, 5 day(s) Active Prozac 20 MG Orally Once a day 3 capsules 24h Active Estradiol 2 MG Orally Once a day 1.5 tablet by Oral route 1 time per day 24h Apr, Active Benadryl 25 MG Orally every 6 hrs 1-2 capsule as needed 6h Active RESULTS Name Result Date Reference Range LIPID PANEL 2016-08-14 Cholesterol, Total 229 100-199 Triglycerides 286 0-149 HDL Cholesterol 48 >39 VLDL Cholesterol Dani 57 5-40 LDL Cholesterol Calc 124 0-99 Comment: Ultrasound : Soft Tissue (specify location) 2016-08-16 PROCEDURES Procedure Date Ordered Result [facility] 2016 [facility] VISIT ESTABLISHED PATIENT Aug 14, 2016 VENIPUNCT, ROUTINE* Aug 14, 2016 IMMUNIZATIONS No Known Immunizations MEDICAL (GENERAL) [...] Medical History metabolic disorder- vitamin D deficiency Medical History Left kidney mass Surgical History arthroscopic knee surgery- Dr Figueroa [...] History Ts & As Hospitalization History Cellulitis-[facility] 12/20/15
--- OUTSIDE RECORDS SUMMARY | 2017-04-13 16:13 | XMS REPORT ---
Author Author SAI CARMEN Organization [facility] Address [address] [place] [address] Care Team Providers Care Statistical Engineer Name Role Phone CARMEN GIBBS Unavailable PROBLEMS Type Condition ICD9-CM Code [id number] Code Onset Dates Condition Status SNOMED Code Problem Hyperlipidemia, mixed E78.2 Active 667532411 Problem Asthma J45.909 Active 955220950 Problem Chronic pancreatitis K86.1 Active 621725221 Problem Trichotillomania F63.3 Active 81756451 Problem Chronic post-traumatic stress disorder (PTSD) F43.12 Active 936643917 Problem Atelectasis J98.11 Active 35677012 Problem Polydipsia R63.1 Active 90433823 Problem Generalized social phobia F40.11 Active 72866098 Problem Restless leg syndrome G25.81 Active 70020631 Problem Hirsuties L68.0 Active 733669834 Problem FH: polycystic ovary Z84.2 Active 713428917 Problem Chronic tension-type headache, intractable G44.221 Active 395201017 Problem Left kidney mass N28.89 Active 967757116 Problem Morbid (severe) obesity due to excess calories E66.01 Active 519952605 ALLERGIES No Information SOCIAL HISTORY Never Assessed PLAN OF CARE VITAL SIGNS MEDICATIONS Medication Instructions Dosage Frequency Start Date End Date Duration Status Ropinirole HCl 2 MG Orally Once a day 2 tablets at bedtime 24h 30 days Active Prozac 20 mg Orally Once a day 3 capsules 24h 30 days Active RESULTS No Results PROCEDURES No Known procedures IMMUNIZATIONS No Known [...] History Ts & As Hospitalization History Cellulitis-[facility] 12/20/15
--- OUTSIDE RECORDS SUMMARY | 2017-04-13 16:18 | XMS REPORT ---
Author Author CARMEN GIBBS Organization [facility] Address [address] [place] [address] Care Team Providers Care Receiver Setter Name Role Phone CORTNEY GIBBSHANY Unavailable PROBLEMS Type Condition ICD9-CM Code [id number] Code Onset Dates Condition Status SNOMED Code Problem Hyperlipidemia, mixed E78.2 Active 421467934 Problem Asthma J45.909 Active 620491600 Problem Chronic pancreatitis K86.1 Active 743211212 Problem Trichotillomania F63.3 Active 38232267 Problem Chronic post-traumatic stress disorder (PTSD) F43.12 Active 160321700 Problem Atelectasis J98.11 Active 36305093 Problem Polydipsia R63.1 Active 75190596 Problem Generalized social phobia F40.11 Active 50914038 Problem Restless leg syndrome G25.81 Active 97416437 Problem Hirsuties L68.0 Active 425599089 Problem FH: polycystic ovary Z84.2 Active 275326784 Problem Chronic tension-type headache, intractable G44.221 Active 072823621 Problem Left kidney mass N28.89 Active 579814477 Problem Morbid (severe) obesity due to excess calories E66.01 Active 508206437 ALLERGIES No Information SOCIAL HISTORY Never Assessed PLAN OF CARE VITAL SIGNS MEDICATIONS Unknown Medications RESULTS Name Result Date Reference Range CT Scan : Neck Soft Tissue w/ Contrast 2016-08-28 PROCEDURES No Known procedures IMMUNIZATIONS No Known [...] Surgical History Ts & As Hospitalization History Cellulitis-[facility] 12/20/15
--- NOTE | 2017-04-13 16:20 | ED Abdominal Pain ---
General Stated Complaint: NO BOWEL MOVEMENT, KIDNEY SURGERY ON 04/10,RASH Source of Information: Patient Exam Limitations: No Limitations History of Present Illness Time Seen By Provider: 16:18 Initial Comments To ER with reports of constipation of 4 days' duration, and itchy rash and left- sided abdominal pain. She is not on any new medications that she is aware of that may be causing a rash. She had a left nephrectomy for a mass found on CT a few weeks ago concerning for renal cell carcinoma. Surgery was done by Dr. Poe at the [facility] on 04/10/17. She was discharged to home on 04/11/17. . Timing/Duration: 3-4 Days Severity/Quality: Cramping Location: Generalized Abdomen Allergies and Home Medications Allergies Coded Allergies: meperidine (Verified Allergy, Unknown, 05/23/16) penicillin G (Verified Allergy, Unknown, 05/23/16) Home Medications Diphenhydramine HCl 25 Mg Capsule, 25-50 MG PO Q6H PRN for ALLERGIES, (Reported) Estradiol 2 Mg Tablet, 3 MG PO HS, (Reported) TAKES 1 & 1/2 (2MG) TABLETS Fluoxetine HCl 20 Mg Capsule, 60 MG PO HS, (Reported) TAKES 3 (20MG) CAPSULES Hydrocodone/Acetaminophen 1 Each Tablet, 1 EACH PO Q6H PRN for PAIN, #20 Prescribed by: IZABELA MAC on 03/07/17 1221 Hydrocodone/Acetaminophen 1 Each Tablet, 1 EACH PO Q6H, #20 Ref 0 Prescribed by: YUKI MARCH on 03/14/17 0619 Ibuprofen 800 Mg Tablet, 800 MG PO Q8H PRN for PAIN, (Reported) Mupirocin 22 Gm Oint...g., 22 GM TP BID for 7 Days, #1 Ref 0 Prescribed by: MAKAYLA HAWKINS on 02/21/17 0701 Polyethylene Glycol 3350 17 Gm Powd.pack, (Reported) Ropinirole HCl 2 Mg Tablet, 2 MG PO HS, (Reported) Sulfamethoxazole/Trimethoprim 1 Each Tablet, 1 EACH PO BID for 10 Days, #20 Ref 0 Prescribed by: MAKAYLA HAWKINS on 02/21/17 0701 Tramadol HCl 50 Mg Tablet, (Reported) Review of Systems Constitutional: see HPI, No chills, No fever EENTM: No Symptoms Reported Respiratory: No Symptoms Reported Cardiovascular: No Symptoms Reported Gastrointestinal: No Symptoms Reported Genitourinary: No Symptoms Reported Musculoskeletal: no symptoms reported Skin: no symptoms reported Psychiatric/Neurological: No Symptoms Reported Endocrine: No Symptoms Reported Past Brqhuhn-Bdommf-Obchlg Hx Patient Social History 2nd Hand Smoke Exposure: No Recent Foreign Travel: No Contact w/Someone Who Travel: No Recent Hopitalizations: No Immunizations Up To Date Tetanus Booster (TDap): Unknown Date of Pneumonia Vaccine: May 17, 2012 Date of Influenza Vaccine: Jul 03, 2012 Seasonal Allergies Seasonal Allergies: Yes (MILD) Surgeries History of Surgeries: Yes (R KNEE SCOPE X4 L X2, NASAL FX, EGD/COLONOSCOPY, COCCYX REMOVAL,) Surgeries: Abdominal, Adenoidectomy, Appendectomy, Gallbladder, 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, Orthopedic, Tonsillectomy Respiratory History of Respiratory Disorde: Yes (HASNT USED INHALER IN 4YRS) Respiratory Disorders: Asthma Currently Using CPAP: No Currently Using BIPAP: No Cardiovascular History of Cardiac Disorders: No Neurological History of Neurological Disord: Yes (restless leg syndrome) Neurological Disorders: Headaches /Migraines 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 System Hx 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: Yes (HX ENDOMETRIOSIS ) Sexually Transmitted Disease: No HIV/AIDS: No 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, 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 ELECTRICIAN CONTROL EQUIPMENT 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: 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 Genitourinary History of Genitourinary Disor: No Genitourinary Disorders: UTI-Chronic Gastrointestinal History of Gastrointestinal Di: Yes (ENLARGED LIVER) Gastrointestinal Disorders: Pancreatitis, Polyps Musculoskeletal History of Musculoskeletal Dis: Yes (COCCYX-REPAIRED, MAY HAVE SIGNS OF ARTHRITIS) Musculoskeletal Disorders: Chronic Back Pain Endocrine History of Endocrine Disorders: No HEENT History of HEENT Disorders: No Loss of Vision: Denies Hearing Impairment: Denies Cancer History of Cancer: No Psychosocial History of Psychiatric Problem: Yes Behavioral Health Disorders: Anxiety, Depression Integumentary History of Skin or Integumenta: No Skin/Integumentary Disorders: Herpes Blood Transfusions History of Blood Disorders: No Adverse Reaction to a Blood Tr: No Family Medical History Significant Family History: Cancer, Diabetes, Hypertension Family Medial History: Cardiovascular disease 19 FATHER Completed stroke 19 FATHER Diabetes mellitus 19 FATHER Hypercholesterolemia 19 FATHER 19 MOTHER Hypertension 19 FATHER 19 MOTHER Neoplasm 19 MOTHER Psychosocial problem 19 FATHER 19 MOTHER Physical Exam Vital Signs VS - Last 72 Hours, by Label 04/13/17 16:07 Temp 97.8 Pulse 101 Resp 18 B/P (MAP) 120/68 Pulse Ox 98 O2 Delivery Room Air Capillary Refill : General Appearance: WD/WN, no apparent distress HEENT: PERRL/EOMI, normal ENT inspection Neck: non-tender, full range of motion Respiratory: no respiratory distress, no accessory muscle use Gastrointestinal: soft, abnormal bowel sounds (bowel sounds are hypoactive but present. The left sided abdominal incisions are clean dry and intact. There is no surrounding erythema or ecchymosis.) Extremities: normal range of motion, non-tender Neurologic/Psychiatric: alert, normal mood/affect, oriented x 3 Skin: normal color, warm/dry, other (there is a fine maculopapular rash affecting the torso and the arms.) Progress/Results/Core Measures Results/Orders Lab Results Laboratory Tests Test 04/13/17 16:39 04/13/17 16:43 Range/Units Urine Color YELLOW Urine Clarity CLEAR Urine pH 5 5-9 Urine Specific [place] 1.015 L 1.016-1.022 Urine Protein NEGATIVE NEGATIVE Urine Glucose (UA) NEGATIVE NEGATIVE Urine Ketones NEGATIVE NEGATIVE Urine Nitrite NEGATIVE NEGATIVE Urine Bilirubin NEGATIVE NEGATIVE Urine Urobilinogen NORMAL NORMAL MG/DL Urine Leukocyte Esterase NEGATIVE NEGATIVE Urine RBC (Auto) NEGATIVE NEGATIVE Urine RBC NONE /HPF Urine WBC NONE /HPF Urine Squamous Epithelial Cells 25-50 H /HPF Urine Crystals NONE /LPF Urine Bacteria NEGATIVE /HPF Urine Casts NONE /LPF Urine Mucus NEGATIVE /LPF Urine Culture Indicated NO White Blood Count 13.3 H 4.3-11.0 10^3/uL Red Blood Count 4.42 4.35-5.85 10^6/uL Hemoglobin 12.6 11.5-16.0 G/DL Hematocrit 38 35-52 % Mean Corpuscular Volume 86 80-99 FL Mean Corpuscular Hemoglobin 29 25-34 PG Mean Corpuscular Hemoglobin Concent 33 32-36 G/DL Red Cell Distribution Width 13.3 10.0-14.5 % Platelet Count 327 130-400 10^3/uL Mean Platelet Volume 9.7 7.4-10.4 FL Neutrophils (%) (Auto) 68 42-75 % Lymphocytes (%) (Auto) 24 12-44 % Monocytes (%) (Auto) 4 0-12 % Eosinophils (%) (Auto) 3 0-10 % Basophils (%) (Auto) 0 0-10 % Neutrophils # (Auto) 9.1 H 1.8-7.8 X 10^3 Lymphocytes # (Auto) 3.3 1.0-4.0 X 10^3 Monocytes # (Auto) 0.6 0.0-1.0 X 10^3 Eosinophils # (Auto) 0.4 H 0.0-0.3 10^3/uL Basophils # (Auto) 0.0 0.0-0.1 10^3/uL Sodium Level 137 135-145 MMOL/L Potassium Level 3.6 3.6-5.0 MMOL/L Chloride Level 97 L 98-107 MMOL/L Carbon Dioxide Level 27 21-32 MMOL/L Anion Gap 13 5-14 MMOL/L Blood Urea Nitrogen 15 7-18 MG/DL Creatinine 1.07 0.60-1.30 MG/DL Estimat Glomerular Filtration Rate 59 BUN/Creatinine Ratio 14 Glucose Level 86 70-105 MG/DL Calcium Level 9.5 8.5-10.1 MG/DL Total Bilirubin 0.4 0.1-1.0 MG/DL Aspartate Amino Transf (AST/SGOT) 26 5-34 U/L Alanine Aminotransferase (ALT/SGPT) 20 0-55 U/L Alkaline Phosphatase 63 40-136 U/L Total Protein 7.6 6.4-8.2 GM/DL Albumin 3.9 3.2-4.5 GM/DL Lipase 170 H 8-78 U/L My Orders Orders - GEORGES FINN APRN Cbc With Automated Diff (04/13/17 16:17) Comprehensive Metabolic Panel (04/13/17 16:17) Ua Culture If Indicated (04/13/17 16:17) Saline Lock/Iv-Start (04/13/17 16:17) Ct Abdomen/Pelvis Wo (04/13/17 17:11) Ketorolac Injection (Toradol Injection) (04/13/17 17:45) Lipase (04/13/17 17:56) Diphenhydramine Injection (Benadryl Inje (04/13/17 18:15) Medications Given in ED Current Medications Medications Dose Ordered Sig/Neal Route Start Time Stop Time Status Last Admin Dose Admin Ketorolac Tromethamine 60 mg ONCE ONCE IM 04/13/17 17:45 04/13/17 17:46 DC 04/13/17 18:04 60 MG Vital Signs/I&O Vital Sign - Last 12Hours 04/13/17 16:07 Temp 97.8 Pulse 101 Resp 18 B/P (MAP) 120/68 Pulse Ox 98 O2 Delivery Room Air Departure Communication (Admissions) Progress Notes 1818- I did discuss the case with Dr. Almanza from urology at the [facility]. She has reviewed the CT and feels that this is a normal postoperative finding. I would agree that this is unlikely to be an abscess given the absence of fevers even though she is not on antibiotics. Her heart rate is in the 80s, blood pressure 120/76, temperature 97.4 at this time. We will discharge to home with instructions to return for fevers, worsening pain. Given the slight elevation of lipase I will also have her gradually clear liquid diet for the next 24 hours Impression Impression: Primary Impression: Postoperative pain Additional Impressions: Constipation drug eruption rash mild pancreatitis Disposition: HOME, SELF-CARE Condition: Stable Departure-Patient Inst. Decision time for Depature: 18:19 Referrals: CARMEN GIBBS MD (PCP/Family) Primary Care Physician Patient Instructions: NO INSTRUCTIONS GIVEN Add. Discharge Instructions: 1. Continue to take your pain medication as directed. Continue to use Benadryl every 4-6 hours as needed for the itchy rash 3. Follow a clear liquid diet which would be Jell-O, Gatorade, chicken broth for the next 24 hours as the inflammation around the pancreas improves. Return to the emergency room for any fevers, intolerable pain or other concerns. GEORGES FINN APRN Apr 13, 2017 16:20
--- OUTSIDE RECORDS SUMMARY | 2017-04-13 16:21 | XMS REPORT ---
Author Author CARMEN GIBBS Organization [facility] Address [address] [place] [address] Care Team Providers Care Cigar Packer And Shader Name Role Phone CARMEN GIBBS Unavailable PROBLEMS Type Condition ICD9-CM Code [id number] Code Onset Dates Condition Status SNOMED Code Problem Hyperlipidemia, mixed E78.2 Active 124278433 Problem Asthma J45.909 Active 273326922 Problem Chronic pancreatitis K86.1 Active 431067595 Problem Trichotillomania F63.3 Active 84084851 Problem Chronic post-traumatic stress disorder (PTSD) F43.12 Active 376833665 Problem Atelectasis J98.11 Active 87740378 Problem Polydipsia R63.1 Active 93017227 Problem Generalized social phobia F40.11 Active 68133533 Problem Restless leg syndrome G25.81 Active 21625806 Problem Hirsuties L68.0 Active 269888637 Problem FH: polycystic ovary Z84.2 Active 936002420 Problem Chronic tension-type headache, intractable G44.221 Active 910423690 Problem Left kidney mass N28.89 Active 006243287 Problem Morbid (severe) obesity due to excess calories E66.01 Active 259298476 ALLERGIES No Information SOCIAL HISTORY Never Assessed PLAN OF CARE VITAL SIGNS MEDICATIONS Unknown Medications RESULTS No Results PROCEDURES No Known procedures [...] History hysterectomy- total d/t endometriosis Dr. Baez 2013 Surgical History orthopedic surgery-coccyx removal w/ Dr Figueroa 08/2013 Surgical History cholecystectomy Surgical History Right knee scope- Dr. Gonzalez 11/2015 Surgical History right knee scope 05/2016 Surgical History abdominal cyst removed Surgical History Ovaries removed Surgical History Ts & As Hospitalization History Cellulitis-[facility] 12/20/15
--- OUTSIDE RECORDS SUMMARY | 2017-04-13 16:25 | XMS REPORT ---
Author Author CARMEN GIBBS Organization [facility] Address [address] [place] [address] Care Team Providers Care Network Designer Name Role Phone CARMEN GIBBS Unavailable PROBLEMS Type Condition ICD9-CM Code WQL26-ZM Code Onset Dates Condition Status SNOMED Code Problem Hyperlipidemia, mixed E78.2 Active 456024964 Problem Asthma J45.909 Active 510750354 Problem Chronic pancreatitis K86.1 Active 938389625 Problem Trichotillomania F63.3 Active 79694455 Problem Chronic post-traumatic stress disorder (PTSD) F43.12 Active 777042671 Problem Atelectasis J98.11 Active 02463494 Problem Polydipsia R63.1 Active 28580850 Problem Generalized social phobia F40.11 Active 45127145 Problem Restless leg syndrome G25.81 Active 91886613 Problem Hirsuties L68.0 Active 869075371 Problem FH: polycystic ovary Z84.2 Active 681469124 Problem Chronic tension-type headache, intractable G44.221 Active 889933494 Problem Left kidney mass N28.89 Active 075122888 Problem Morbid (severe) obesity due to excess calories E66.01 Active 804106640 ALLERGIES No Information SOCIAL HISTORY Never Assessed [...] History Ts & As Hospitalization History Cellulitis-[facility]ia [facility] 12/20/15
[2017-04-13] MEDS ORDERED: POLY17PO23 (16:45)
[2017-04-13] MEDS ORDERED: TRAM50TA2 (16:45)
[2017-04-13 16:49] LABS: BILIRUBIN,URINE NEGATIVE (NEGATIVE); KETONES,URINE NEGATIVE (NEGATIVE); LEUKOCYTE ESTERASE ,URINE NEGATIVE (NEGATIVE); NITRITE,URINE NEGATIVE (NEGATIVE); PH,URINE 5 (5-9); PROTEIN,URINE NEGATIVE (NEGATIVE); UROBILINOGEN,URINE NORMAL (NORMAL)
[2017-04-13 16:58] LABS: SQUAMOUS EPITHELIAL CELL,UR 25-50 /HPF
[2017-04-13 17:09] LABS: BASOPHILS % (AUTO) 0 % (0-10); EOSINOPHILS # (AUTO) 0.4 10^3/uL (0.0-0.3); EOSINOPHILS % (AUTO) 3 % (0-10); LYMPHOCYTES # (AUTO) 3.3 X 10^3 (1.0-4.0); LYMPHOCYTES % (AUTO) 24 % (12-44); MEAN CORPUSCULAR HEMOGLOBIN 29 PG (25-34); MEAN CORPUSCULAR HGB CONC 33 G/DL (32-36); MEAN CORPUSCULAR VOLUME 86 FL (80-99); MEAN PLATELET VOLUME 9.7 FL (7.4-10.4); MONOCYTES # (AUTO) 0.6 X 10^3 (0.0-1.0); MONOCYTES % (AUTO) 4 % (0-12); NEUTROPHILS # (AUTO) 9.1 X 10^3 (1.8-7.8); NEUTROPHILS % (AUTO) 68 % (42-75); PLATELET COUNT 327 10^3/uL (130-400); RED BLOOD COUNT 4.42 10^6/uL (4.35-5.85); RED CELL DISTRIBUTION WIDTH 13.3 % (10.0-14.5); WHITE BLOOD COUNT 13.3 10^3/uL (4.3-11.0)
[2017-04-13 17:11] LABS: ALBUMIN 3.9 GM/DL (3.2-4.5); BILIRUBIN,TOTAL 0.4 MG/DL (0.1-1.0); CALCIUM 9.5 MG/DL (8.5-10.1); CREATININE SERUM 1.07 MG/DL (0.60-1.30); POTASSIUM 3.6 MMOL/L (3.6-5.0); TOTAL PROTEIN 7.6 GM/DL (6.4-8.2)
--- NOTE | 2017-04-13 17:32 | Diagnostic Imaging Report ---
PROCEDURE: CT abdomen and pelvis without contrast. TECHNIQUE: Multiple contiguous axial images were obtained through the abdomen and pelvis without the use of intravenous contrast. INDICATION: Post left nephrectomy four days ago. Left-sided pain. Constipation. Comparison with 03/07/2017. FINDINGS: There has been left nephrectomy. There is some fluid and air in the bed of the left kidney measuring approximately 4 cm in diameter. The right kidney appears normal. There is moderate amount of stool present throughout the colon from the cecum to the rectum. Appendix is absent. There is no evidence of diverticulitis or obstructive process to the colon. Stomach and small bowel are not distended. Liver appears normal. Gallbladder absent. Bile ducts not dilated. Pancreas is normal. Spleen appears normal. There are several well-circumscribed densities just anterior to the spleen and lateral measuring approximately 2 cm in greatest dimension felt to most likely represent splenosis. There is no retroperitoneal adenopathy along the periaortic region. There is a large defect along the anterior abdominal wall on the left which was not present on previous exam. This measures approximately 5 cm. There is a small amount of fluid and air extending between the lateral rectus muscles on the left. IMPRESSION: 1. Postoperative study showing air and fluid in the bed of the left nephrectomy site measuring approximate 4 cm as well as area of fluid extending between the rectus muscles along the left lateral abdomen with large defect of the rectus muscle measuring 5 cm. Could not exclude developing abscesses with patient's history and symptoms. Dictated by: Dictated on workstation # [id number]
[2017-04-13] MEDS ORDERED: KETOROLAC 60 MG/2 ML VIAL IM ONE (17:45)
[2017-04-13] MEDS ORDERED: diphenhydrAMINE 50 MG/ML INJ (BENADRYL) IM ONE (18:15)
[2017-04-13 18:36] VITALS: BP 120/68
== END 2017-04-13 18:36 | disposition home or self-care (01) ==
LOC: EDUNIT# 15:59 → ER 16:02
DX: G89.29 Other chronic pain (principal); R10.84 Generalized abdominal pain; K59.00 Constipation, unspecified; R21 Rash and other nonspecific skin eruption; T50.905A Adverse effect of unspecified drugs, medicaments and biological substances, initial encounter; K85.91 Acute pancreatitis with uninfected necrosis, unspecified; G43.909 Migraine, unspecified, not intractable, without status migrainosus; F41.9 Anxiety disorder, unspecified; F32.9 Major depressive disorder, single episode, unspecified; J45.909 Unspecified asthma, uncomplicated; Z87.19 Personal history of other diseases of the digestive system; Z82.49 Family history of ischemic heart disease and other diseases of the circulatory system; Z86.010 Personal history of colon polyps; Z90.5 Acquired absence of kidney; Z90.49 Acquired absence of other specified parts of digestive tract; Z90.710 Acquired absence of both cervix and uterus; Z90.89 Acquired absence of other organs
CPT/HCPCS: 36415; 74176; 80053; 81000; 83690; 85025

== ENCOUNTER 2017-04-17 20:43 | Emergency (ER) | payer MEDICARE, MEDICAID ==
[~2017-04-17] VITALS: Ht 157.5 cm; Wt 104.3 kg
[~2017-04-17 20:43] MED LIST changes: +POLY17PO23; +TRAM50TA2
--- OUTSIDE RECORDS SUMMARY | 2017-04-17 20:49 | XMS REPORT | Continuity of Care Document ---
Author Author [employer] [facility] Address Unknown Phone Unavailable Care Team Providers Care Budget Examiner Name Role Phone [employer] Unavailable Unavailable Problems Medications Allergies, Adverse Reactions, Alerts Immunizations Results Vital Signs Encounters Location Location Details Encounter Type Encounter Number Reason For Visit Attending Provider ADM Date DC Date Status Source OUTPATIENT [id number] RAQUEL BARGER 07/15/20132013 Active [facility] [place] SERIES [id number] [facility] 03/18/2017 03/18/2017 Active [facility] EXT RECOVERY [id number] [facility] 04/10/2017 04/11/2017 Active [facility] Active [facility] Procedures Plan of Care Social History Assessment and Plan Family History Value Date Source Advance Directives Order Name Results Value Date Source
--- OUTSIDE RECORDS SUMMARY | 2017-04-17 20:50 | XMS REPORT | Encounter Summary ---
Author Author [facility] Organization [facility] Address Unknown Phone Unavailable Care Team Providers Care Digital Marketing Analyst Name Role Phone PCP Unavailable Reason for Visit * Reason Comments Abdominal pain Encounter Details Date Type Department Care Team Description 04/17/2017 Telephone [facility] Abel Poe MD Abdominal pain [facility] [address] [place] [address] [place] [address] [phone] Social History Tobacco Use Types Packs/Day Years [...] encounter Miscellaneous Notes * Telephone Encounter - Jenn Bhatt RN - 04/17/2017 9:59 AM CDT Pt called with report of severe pain around umbilicus. She is concerned that she might have pulled a muscle or damaged something internally. Discussed situation with her. She has been taking pain meds as prescribed and actually has been cutting back because she felt that she did not need them. She states constipation has improved and she has had bowel movements now. She denies fever or other sx. No drainage from incisional sites. She stated she is splinting abd when coughing, rolling to side to get out of bed, not lifting anything heavier than a gallon of milk, and walking every day. Encouraged her to continue this process but go to ED if she feels pain is not improving or she can't tolerate. She verbalized understanding and agreement. in this encounter Plan of Treatment Not on fileas of this encounter Visit Diagnoses Not on filein this encounter
--- OUTSIDE RECORDS SUMMARY | 2017-04-17 20:50 | XMS REPORT | Encounter Summary ---
Author Author [facility] Organization [facility] Address Unknown Phone Unavailable Care Team Providers Care Test Rack Operator Name Role Phone PCP Unavailable Encounter Details Date Type Department Care Team Description 04/13/2017 Hospital [facility] Arrived Encounter Hospital Radiology [address] [place], [place] [id number] Social History Tobacco Use Types Packs/Day Years [...] encounter Results * CT ABD/PEL EXTERNAL IMAGING (04/13/2017) Narrative This order has been auto finalized and does not contain a result. in this encounter Visit Diagnoses Diagnosis Diagnosis unknown Other unknown and unspecified cause of morbidity or mortality in this encounter
--- OUTSIDE RECORDS SUMMARY | 2017-04-17 20:50 | XMS REPORT | Encounter Summary ---
Author Author [facility] Organization [facility] Address Unknown Phone Unavailable Care Team Providers Care Tank Car Loader Name Role Phone PCP Unavailable Reason for Visit * Reason Comments Results Encounter Details Date Type Department Care Team Description 04/15/2017 Telephone [facility] UROLOGY Abel Poe MD Results [address] [place] [address] Social History Tobacco Use Types [...] encounter Miscellaneous Notes * Telephone Encounter - Abel Poe MD - 04/15/2017 1:28 PM CDT Gave results of pathology. Patient has a rash. Battling with constipation. Overall, doing ok. in this encounter Plan of Treatment Not on fileas of this encounter Visit Diagnoses Not on filein this encounter
--- OUTSIDE RECORDS SUMMARY | 2017-04-17 20:50 | XMS REPORT | Encounter Summary ---
Author Author [facility] Organization [facility] Address Unknown Phone Unavailable Care Team Providers Care Otc Clerk Name Role Phone PCP Unavailable Reason for Visit * Reason Comments General Question Encounter Details Date Type Department Care Team Description 04/13/2017 Telephone [facility] Katharina Vann MD General Question Physicians - Urology [address] [facility] [address] [place] [address] [address] [place] [phone] Social History Tobacco Use Types Packs/Day Years [...]
--- OUTSIDE RECORDS SUMMARY | 2017-04-17 20:50 | XMS REPORT | Encounter Summary ---
Author Author [facility] Organization [facility] Address Unknown Phone Unavailable Care Team Providers Care Wood Gang Sawyer Name Role Phone PCP Unavailable Reason for Visit * Auth/Cert Status Reason Specialty Diagnoses / Referred By Referred To Procedures Contact Contact Diagnoses Renal mass unknown P rocedures NEPHRECTOMY LAPAROSCOPY Encounter Details Date Type Department Care Team Description 04/10/2017 Hospital Surg Onc/Uro/Senior Marketing Data Analyst Onc Abel Heart MD Renal mass - Encounter [address] 04/11/2017 [place] [address] [address] [place] [address] [phone] Social History Tobacco Use Types Packs/Day Years [...] (Aleve) You may use acetaminophen (Tylenol) and Jefferson Morning of surgery On the morning of surgery, do NOT take these medications: Remaining vitamins/supplements Ointments/creams/lotions On the morning of surgery, take ONLY these medications with a sip (1-2 ounces) of water: Jefferson If needed Zofran if needed Other information Before surgery, please contact TIMUR Barajas with any medicine updates or questions. E-mail: [email or web address] Before going home from the hospital, please [...] and any other valuables at home. The [facility] is not responsible for the loss or breakage of personal items. Remove nail yakut, makeup and all jewelry (including piercings) before coming to the hospital. The morning of your procedure: brush your teeth and tongue do not smoke do not shave the area where you will have surgery What to bring to the hospital ID/ Insurance Card Stock Preparation Operator card Official documents for legal guardianship Copy of your Living Will, Advanced Directives, and/or Durable Power of Cardiovascular Technician Small bag with a few personal belongings [...] call by 4:00 you may call or [phone] after 4:30. Notify us at [facility]: if you need to cancel your procedure if you are going to be late Arrival at the [facility]: Park in the [facility] located directly across from the main entrance to the hospital. [employer] parking is available from 7 AM to [...] Vann MD PGY-1 Urology Please page urology concrete polisher with questions ATTESTATION I personally performed the [...] as needed. Bruna Fletcher, PHARMD 04/10/2017 * Mariaan Gallo, RT - 04/10/2017 6:17 PM CDT [...] Date: 04/10/2017 Guillermo AC=Airway clearance AM=Aerosolized medication BA=[place] aerosol DB&C=Deep breathe & cough FEV1=Forced expiratory volume in first second) IC=Inspiratory capacity LE=Lung expansion MDI=Metered dose inhaler Neb=Nebulizer O2=Oxygen Oxim=Oximetry PEFR=Peak expiratory flow rate OFFICE CLERK=Rapid Response Team * Venecia Wheeler RN - [...] for 7 days. May take Zofran and Jefferson day of surgery. NPO after 11:00 pm [...] was induced. The patient was intubated. A 16-Slovak Romero catheter was placed per urethra under [...] Performing Laboratory [facility] [address] [place] [address] * BASIC METABOLIC PANEL (04/11/2017 4:41 AM) [...] Performing Laboratory [facility] [address] [place] [address] * SURGICAL PATHOLOGY (04/10/2017 3:00 PM) Component Value Ref Range PATHOLOGY REPORT [facility] [email or web address] Shaylee Black MD, PhD, Director of Anatomic Pathology Department of Pathology and Laboratory Medicine [address] [place] [id number] Surgical Pathology Office: [phone] SURGICAL PATHOLOGY REPORT NAME: JANETH DELGADO SURG PATH #: [id number] MR #: [id number] SPECIMEN CLASS: SR BILLING #: [id number] ALT ID #: LOCATION: 53 DATE OF [...] status and/or prior pathology. Pursuant to the Material Stress Tester Program at the [facility] Pathology Department, selected slides from this [...] is inked black. Lymph nodes identified: No Manager Sales Support sections of the specimen are submitted as follows: A1-A2 Vascular and ureteral margins. A3 Tumor to nearest capsule/Gerota's fascia including surrounding perinephric fat. A4 Tumor to adjacent normal kidney. A5 Tumor to renal pelvis. A6-A8 Tumor to renal sinus fat. wa/04/10/2017 Specimen Performing Laboratory [facility] RES[facility] * BLOOD TYPE CONFIRMATION - ORDER ONLY IF REQUESTED BY LAB (04/10/2017 9:44 AM) Component Value Ref Range ABO/RH(D) A NEG Specimen Performing Laboratory [facility] [address] [place] [address] * TYPE & CROSSMATCH (04/10/2017 9:29 AM) Component Value Ref Range Units Ordered 0 Crossmatch Expires 04/13/2017 Record Check 2ND TYPE REQUIRED ABO/RH(D) A NEG Antibody Screen NEG Electronic Crossmatch YES Specimen Performing Laboratory [facility] [address] [place] [address] * BASIC METABOLIC PANEL (04/10/2017 9:29 AM) [...] Performing Laboratory [facility] [address] [place] [address] * CBC (04/10/2017 9:29 AM) Component Value [...] Performing Laboratory [facility] [address] [place] [address] in this encounter Visit Diagnoses Diagnosis Renal [...]
--- OUTSIDE RECORDS SUMMARY | 2017-04-17 20:50 | XMS REPORT | Clinical Summary ---
Author Author [facility] Organization [facility] Address Unknown Phone Unavailable Care Team Providers Care Bull Bucker Name Role Phone PCP Unavailable Source Comments Some departments are not documenting in the electronic medical record. If you do not see the information that you expected, contact Release of Information in the Health Information Management department at [phone] for further assistance in locating additional records.[facility] Allergies Active Allergy Reactions Severity Noted Date Comments Penicillins UNKNOWN 09/20/2011 Meperidine (Pf) ITCHING Low [...] as needed for 15 17 ued Nausea. [id number]-qhnjosuj-ycxbdnm Take 80,000 Units by 240 Cap 6 [...] Overview: Added automatically from request for surgery [id number] 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 06/24/2013 Overview: S/P HOLLAND, BSO 11/27 Depression 06/24/2013 S/P cholecystectomy 06/24/2013 Overview: 2007 S/P appendectomy 06/24/2013 Overview: November 2012 Pancreatitis 10/23/2011 Encounters Date Type Specialty Care Team Description 04/17/2017 Telephone Oncology Abel Poe MD Abdominal pain 04/15/2017 Ancillary Radiology Outpatient, Radiologist Diagnosis unknown Orders 04/15/2017 Telephone Abel oPe MD Results 04/13/2017 Hospital Radiology Arrived Encounter 04/13/2017 Telephone Urology Katharina Vann MD General [...] CDT from Last 3 Months Results * CT ABD/PEL EXTERNAL IMAGING (04/13/2017) Only the most recent of 2 results within the time period is included. Narrative This order has been auto finalized and does not contain a result. * CBC (04/11/2017 4:41 AM) Only the [...] Specimen Performing Laboratory [facility] [address] [place] [address] * BASIC METABOLIC PANEL (04/11/2017 4:41 AM) [...] Specimen Performing Laboratory [facility] [address] [place] [address] * ANESTHESIA PERIPHERAL NERVE BLOCK (04/10/2017 6:48 PM) Malena Munroe MD 04/10/20174:04 PM Anesthesia Procedure: Peripheral [...] and monitoring data during procedure. Performed by: TIA MUNROE Authorized by: TREMAINE MELENDEZ SURGICAL PATHOLOGY (04/10/2017 3:00 PM) Component Value Ref Range PATHOLOGY REPORT [facility] [email or web address] Shaylee Black MD, PhD, Director of Anatomic Pathology Department of Pathology and Laboratory Medicine [address] [place] [address] Surgical Pathology Office: [phone] SURGICAL PATHOLOGY REPORT NAME: JAYLYN DELGADO SURG PATH #: [id number] MR #: [id number] SPECIMEN CLASS: SR BILLING #: [id number] ALT ID #: LOCATION: 53 DATE OF [...] status and/or prior pathology. Pursuant to the Child And Family Therapist Program at the [facility] Pathology Department, selected slides from this case [...] is inked black. Lymph nodes identified: No Front Services Agent sections of the specimen are submitted as follows: A1-A2 Vascular and ureteral margins. A3 Tumor to nearest capsule/Gerota's fascia including surrounding perinephric fat. A4 Tumor to adjacent normal kidney. A5 Tumor to renal pelvis. A6-A8 Tumor to renal sinus fat. il/04/10/2017 Specimen Performing Laboratory [facility] RES[facility] * BLOOD TYPE CONFIRMATION - ORDER ONLY IF REQUESTED BY LAB (04/10/2017 9:44 AM) Component Value Ref Range ABO/RH(D) A NEG Specimen Performing Laboratory [facility] [address] [place] [address] * TYPE & CROSSMATCH (04/10/2017 9:29 AM) Component Value Ref Range Units Ordered 0 Crossmatch Expires 04/13/2017 Record Check 2ND TYPE REQUIRED ABO/RH(D) A NEG Antibody Screen NEG Electronic Crossmatch YES Specimen Performing Laboratory [facility] [address] [place] [address] * GENERAL RAD CHEST EXTERNAL IMAGING (03/07/2017 12:30 AM) Narrative This order has been auto finalized and does not contain a result. * GENERAL RAD ABDOMEN EXTERNAL IMAGING (03/07/2017 12:15 AM) Narrative This order has been auto finalized and does not contain a result. from Last 3 Months
--- OUTSIDE RECORDS SUMMARY | 2017-04-17 20:50 | XMS REPORT | Encounter Summary ---
Author Author [facility] Organization [facility] Address Unknown Phone Unavailable Care Team Providers Care Team Assembly Line Machine Operator Name Role Phone PCP Unavailable Encounter Details Date Type Department Care Team Description 04/15/2017 Ancillary Rad Outpatient, Radiologist Diagnosis unknown Orders [address] [place], [place] [id number] Social History Tobacco Use Types Packs/Day Years [...]
--- OUTSIDE RECORDS SUMMARY | 2017-04-17 20:50 | XMS REPORT | Encounter Summary ---
Author Author [facility] Organization [facility] Address Unknown Phone Unavailable Care Team Providers Care Respiratory Assistant Name Role Phone PCP Unavailable Reason for Visit * Reason Comments Error Encounter Details Date Type Department Care Team Description 04/10/2017 [facility] Randy Recio MD Error Physicians - Urology [address] [facility] 2ND FLOOR [address] [place] [address] OFFICE BLDG [phone] [place] [address] Social History Tobacco Use Types [...]
--- OUTSIDE RECORDS SUMMARY | 2017-04-17 20:51 | XMS REPORT | Encounter Summary ---
Author Author [facility] Organization [facility] Address Unknown Phone Unavailable Care Team Providers Care Railroad Yard Worker Name Role Phone PCP Unavailable Encounter Details Date Type Department Care Team Description 04/10/2017 Procedure Pass Main Operating Room [address] [place], [place] [id number] Social History Tobacco Use Types Packs/Day Years [...]
--- OUTSIDE RECORDS SUMMARY | 2017-04-17 20:52 | XMS REPORT | Encounter Summary ---
Author Author [facility] Organization [facility] Address Unknown Phone Unavailable Care Team Providers Care Cloak Room Attendant Name Role Phone PCP Unavailable Encounter Details Date Type Department Care Team Description 03/21/2017 Ancillary Rad Outpatient, Radiologist Diagnosis unknown Orders [address] [place], [place] [id number] Social History Tobacco Use Types Packs/Day Years [...]
--- OUTSIDE RECORDS SUMMARY | 2017-04-17 20:52 | XMS REPORT | Encounter Summary ---
Author Author [facility] Organization [facility] Address Unknown Phone Unavailable Care Team Providers Care Shactor Name Role Phone PCP Unavailable Reason for Visit * Auth/Cert Status Reason Specialty Diagnoses / Referred By Referred To Procedures Contact Contact Diagnoses Renal mass unknown P rocedures NEPHRECTOMY LAPAROSCOPY Encounter Details Date Type Department Care Team Description 04/10/2017 Anesthesia Main Operating Room Toddlou ParvezMONIE [address] [place] [address] Social History Tobacco Use Types [...] injury, allergic reactions, PONV, aspiration, respiratory failure, HI, CVA discussed with patient who reports understanding and consents to anesthetic plan. Araseli Kuhn M.D. ) Informed Consent Anesthetic plan and risks discussed with patient and mother. Use of blood products discussed with patient; consented to blood products. Plan discussed with: anesthesiologist, surgeon/proceduralist, OSTOMY RN and SRNA. in this encounter Plan of [...]
--- OUTSIDE RECORDS SUMMARY | 2017-04-17 20:52 | XMS REPORT | Encounter Summary ---
Author Author [facility] Organization [facility] Address Unknown Phone Unavailable Care Team Providers Care Hangar Attendant Name Role Phone PCP Unavailable Reason for Visit * Auth/Cert Status Reason Specialty Diagnoses / Referred By Referred To Procedures Contact Contact Diagnoses Renal mass unknown P rocedures NEPHRECTOMY LAPAROSCOPY Encounter Details Date Type Department Care Team Description 04/10/2017 Surgery Main Operating Room Abel Heart MD [facility]PHRECTOMY [address]OSCOPY [address] [place] [address] [address] [place] [address] Social History Tobacco Use Types [...] (Aleve) You may use acetaminophen (Tylenol) and Potter Morning of surgery On the morning of surgery, do NOT take these medications: Remaining vitamins/supplements Ointments/creams/lotions On the morning of surgery, take ONLY these medications with a sip (1-2 ounces) of water: Potter If needed Zofran if needed Other information Before surgery, please contact TIMUR Barajas with any medicine updates or questions. E-mail: [email or web address] Before going home from the hospital, please [...] to admissions in the lobby of the [facility]. If you cannot obtain this soap, [...] and any other valuables at home. The [facility] is not responsible for the loss or breakage of personal items. Remove nail romanian, makeup and all jewelry (including piercings) before coming to the hospital. The morning of your procedure: brush your teeth and tongue do not smoke do not shave the area where you will have surgery What to bring to the hospital ID/ Insurance Card Knitting Inspector card Official documents for legal guardianship Copy of your Living Will, Advanced Directives, and/or Durable Power of Parts Specialist Small bag with a few personal belongings [...] call by 4:00 you may call or [phone] after 4:30. Notify us at General acute hospital: if you need to cancel your procedure if you are going to be late Arrival at the [facility]: Park in the [place] [facility] located directly across from the main entrance to the hospital. [employer] parking is available from 7 AM to [...] Vann MD PGY-1 Urology Please page urology personal investment adviser with questions ATTESTATION I personally performed the [...] Date: 04/10/2017 Guillermo AC=Airway clearance AM=Aerosolized medication BA=[place] aerosol DB&C=Deep breathe & cough FEV1=Forced expiratory volume in first second) IC=Inspiratory capacity LE=Lung expansion MDI=Metered dose inhaler Neb=Nebulizer O2=Oxygen Oxim=Oximetry PEFR=Peak expiratory flow rate DOG BATHER=Rapid Response Team * Venecia Wheeler RN - [...] for 7 days. May take Zofran and Potter day of surgery. NPO after 11:00 pm [...] was induced. The patient was intubated. A 16-Nepalese Romero catheter was placed per urethra under [...] Specimen Performing Laboratory [facility] [address] [place] [address] * BASIC METABOLIC PANEL (04/11/2017 4:41 AM) [...] Performing Laboratory [facility] [address] [place] [address] * SURGICAL PATHOLOGY (04/10/2017 3:00 PM) Component Value Ref Range PATHOLOGY REPORT [facility] [email or web address] Shaylee Black MD, PhD, Director of Anatomic Pathology Department of Pathology and Laboratory Medicine [address] [place] [id number] Surgical Pathology Office: [phone] SURGICAL PATHOLOGY REPORT NAME: JANETH DELGADO SURG PATH #: [id number] MR #: [id number] SPECIMEN CLASS: SR BILLING #: [id number] ALT ID #: LOCATION: 53 DATE OF [...] status and/or prior pathology. Pursuant to the Fence Maker Program at the [facility] Pathology Department, selected slides from this [...] is inked black. Lymph nodes identified: No Bale Sewer sections of the specimen are submitted as follows: A1-A2 Vascular and ureteral margins. A3 Tumor to nearest capsule/Gerota's fascia including surrounding perinephric fat. A4 Tumor to adjacent normal kidney. A5 Tumor to renal pelvis. A6-A8 Tumor to renal sinus fat. me/04/10/2017 Specimen Performing Laboratory [facility] RESULTS * BLOOD TYPE CONFIRMATION - ORDER ONLY IF REQUESTED BY LAB (04/10/2017 9:44 AM) Component Value Ref Range ABO/RH(D) A NEG Specimen Performing Laboratory [facility] [address] [place] [address] * TYPE & CROSSMATCH (04/10/2017 9:29 AM) Component Value Ref Range Units Ordered 0 Crossmatch Expires 04/13/2017 Record Check 2ND TYPE REQUIRED ABO/RH(D) A NEG Antibody Screen NEG Electronic Crossmatch YES Specimen Performing Laboratory [facility] [address] [place] [address] * BASIC METABOLIC PANEL (04/10/2017 9:29 AM) [...] Performing Laboratory [facility] [address] [place] [address] * CBC (04/10/2017 9:29 AM) Component Value [...] Performing Laboratory [facility] [address] [place] [address] in this encounter Visit Diagnoses Diagnosis Renal [...]
--- OUTSIDE RECORDS SUMMARY | 2017-04-17 20:53 | XMS REPORT | Encounter Summary ---
Author Author [facility] Organization [facility] Address Unknown Phone Unavailable Care Team Providers Care Commercial Real Estate Appraiser Name Role Phone PCP Unavailable Encounter Details Date Type Department Care Team Description 03/21/2017 Prep for Case XDD UROLOGY Abel Poe MD [address] [facility] [address] [place] [address] Social History Tobacco Use Types [...]
--- OUTSIDE RECORDS SUMMARY | 2017-04-17 20:54 | XMS REPORT | Encounter Summary ---
Author Author [facility] Organization [facility] Address Unknown Phone Unavailable Care Team Providers Care Pelota Maker Name Role Phone PCP Unavailable Encounter Details Date Type Department Care Team Description 03/13/2017 Ancillary Rad Outpatient, Radiologist Diagnosis unknown Orders [address] [place], [place] [id number] Social History Tobacco Use Types Packs/Day Years [...]
--- OUTSIDE RECORDS SUMMARY | 2017-04-17 20:54 | XMS REPORT | Encounter Summary ---
Author Author [facility] Organization [facility] Address Unknown Phone Unavailable Care Team Providers Care Direct Sales Representative Name Role Phone PCP Unavailable Reason for Visit * Reason Comments Heme/Onc Care Encounter Details Date Type Department Care Team Description 03/18/2017 Office Visit [facility] Abel Poe MD Renal mass (Primary Dx) [facility] Exam [address] [place] [address] [place] [address] [phone] Social History Tobacco Use Types Packs/Day Years [...] Illness: 31 year old female presented to [facility] ED in [place], [place] on 03/07/17 with right upper quadrant [...] every 6 hours as needed for Pain. bfmmpb-hukoofnw-gtheapp (ZENPEP) 40,000-136,000- 218,000 unit cpDR Take 80, [...] potential need for dialysis, neuropraxias from positioning, VT, PE, stroke and . Patient verbalized understanding [...]
--- OUTSIDE RECORDS SUMMARY | 2017-04-17 20:54 | XMS REPORT | Encounter Summary ---
Author Author [facility] Organization [facility] Address Unknown Phone Unavailable Care Team Providers Care Steel Fixer Name Role Phone PCP Unavailable Reason for Visit * Reason Comments Appointment Request Encounter Details Date Type Department Care Team Description 03/19/2017 Telephone [facility] Randy Nunez MD Appointment Request Physicians - Internal [address] [facility] [address] [place] [address] [place] [address] Social History Tobacco Use Types [...]
--- OUTSIDE RECORDS SUMMARY | 2017-04-17 20:54 | XMS REPORT | Encounter Summary ---
Author Author [facility] Organization [facility] Address Unknown Phone Unavailable Care Team Providers Care Paper Mill Manager Name Role Phone PCP Unavailable Encounter Details Date Type Department Care Team Description 03/07/2017 Hospital [facility] Encounter Hospital Radiology [address] [place] [address] Social History Tobacco Use Types [...] every 6 hours as needed for Pain. hztbch-hfdhdmuu-gfoegdf Take 80,000 Units by 240 Cap 6 [...]
--- OUTSIDE RECORDS SUMMARY | 2017-04-17 20:54 | XMS REPORT | Encounter Summary ---
Author Author [facility] Organization [facility] Address Unknown Phone Unavailable Care Team Providers Care Fundraising Consultant Name Role Phone PCP Unavailable Encounter Details Date Type Department Care Team Description 03/07/2017 Hospital [facility] Encounter Hospital Radiology [address] [place] [address] Social History Tobacco Use Types [...] every 6 hours as needed for Pain. zlxtaj-bepjapwi-zvwhomu Take 80,000 Units by 240 Cap 6 [...]
--- OUTSIDE RECORDS SUMMARY | 2017-04-17 20:54 | XMS REPORT | Encounter Summary ---
Author Author [facility] Organization [facility] Address Unknown Phone Unavailable Care Team Providers Care Vehicle Body Sander Name Role Phone PCP Unavailable Reason for Visit * Reason Comments Navigation Assessment Encounter Details Date Type Department Care Team Description 03/11/2017 Telephone [facility] Abel Poe MD Navigation Assessment [facility] Exam [address] [place] [address] [place] [address] [phone] Social History Tobacco Use Types Packs/Day Years [...] Insurance: Medicare/Medicaid Appointment Info: Note 2 appointments: [facility]: 03/18/17 Dr. Abel Poe Arrive at 12:30 pm registration/ appointment 1;00 pm. PAT at 3:00 pm if required. Diagnosis & Reason for Visit: Left renal mass Physician Info: Referring Physician: Pablo Barker MD Contact Name & Number: [phone] Surgeon: Refer to Urology PCP: Mary Whittington MD PCP Location of Films: PACS Location of Pathology: no pathology History of Present Illness: 31 year old female presented to [facility] ED in [place], [place] on 03/07/17 with right upper quadrant [...]
--- OUTSIDE RECORDS SUMMARY | 2017-04-17 20:59 | XMS REPORT | Encounter Summary ---
Author Author [facility] Organization [facility] Address Unknown Phone Unavailable Care Team Providers Care Patient Services Technician Name Role Phone PCP Unavailable Encounter Details Date Type Department Care Team Description 03/07/2017 Hospital [facility] Encounter Hospital Radiology [address] [place] [address] Social History Tobacco Use Types [...] every 6 hours as needed for Pain. cvodur-azogcjyp-povkuan Take 80,000 Units by 240 Cap 6 [...]
[2017-04-17 22:11] VITALS: BP 133/62
--- NOTE | 2017-04-17 22:50 | ED General ---
General Chief Complaint: Abdominal/GI Problems Stated Complaint: ABDOMINAL PAIN,KIDNEY SURGERY ON 04/10 Nursing Triage Note: PT STATES SHE HAD HER L KIDNEY REMOVED ONE WEEK AGO DUE TO A TUMOR ON IT, STATES THAT SHE HAD TAKEN HER ABD BINDER OFF ONE HOUR AGO AND FELT SOMETHING "POOL" IN HER LOWER ABD AND HAS A BURNING SENSATION. Nursing Sepsis Screen: No Definite Risk Source of Information: Patient Exam Limitations: No Limitations History of Present Illness Time Seen by Provider: 22:50 Allergies and Home Medications Allergies Coded Allergies: meperidine (Verified Allergy, Unknown, 05/23/16) penicillin G (Verified Allergy, Unknown, 05/23/16) Home Medications Diphenhydramine HCl 25 Mg Capsule, 25-50 MG PO Q6H PRN for ALLERGIES, (Reported) Estradiol 2 Mg Tablet, 3 MG PO HS, (Reported) TAKES 1 & 1/2 (2MG) TABLETS Fluoxetine HCl 20 Mg Capsule, 60 MG PO HS, (Reported) TAKES 3 (20MG) CAPSULES Hydrocodone/Acetaminophen 1 Each Tablet, 1 EACH PO Q6H PRN for PAIN, #20 Prescribed by: IZABELA MAC on 03/07/17 1221 Hydrocodone/Acetaminophen 1 Each Tablet, 1 EACH PO Q6H, #20 Ref 0 Prescribed by: YUKI MARCH on 03/14/17 0619 Ibuprofen 800 Mg Tablet, 800 MG PO Q8H PRN for PAIN, (Reported) Mupirocin 22 Gm Oint...g., 22 GM TP BID for 7 Days, #1 Ref 0 Prescribed by: MAKAYLA HAWKINS on 02/21/17 0701 Polyethylene Glycol 3350 17 Gm Powd.pack, (Reported) Ropinirole HCl 2 Mg Tablet, 2 MG PO HS, (Reported) Sulfamethoxazole/Trimethoprim 1 Each Tablet, 1 EACH PO BID for 10 Days, #20 Ref 0 Prescribed by: MAKAYLA HAWKINS on 02/21/17 0701 Tramadol HCl 50 Mg Tablet, (Reported) Past Gxmlugj-Djkcug-Xvofos Hx Patient Social History Alcohol Use: Denies Use Recreational Drug Use: No Smoking Status: Never a Smoker 2nd Hand Smoke Exposure: No Recent Foreign Travel: No Contact w/Someone Who Travel: No Recent Infectious Disease Expo: No Recent Hopitalizations: No Immunizations Up To Date Tetanus Booster (TDap): Unknown Date of Pneumonia Vaccine: May 17, 2012 Date of Influenza Vaccine: Jul 03, 2012 Seasonal Allergies Seasonal Allergies: Yes (MILD) Surgeries History of Surgeries: Yes (R KNEE SCOPE X4 L X2, NASAL FX, EGD/COLONOSCOPY, COCCYX REMOVAL,) Surgeries: Abdominal, Adenoidectomy, Appendectomy, Gallbladder, 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, Orthopedic, Tonsillectomy Respiratory History of Respiratory Disorde: Yes (HASNT USED INHALER IN 4YRS) Respiratory Disorders: Asthma Currently Using CPAP: No Currently Using BIPAP: No Cardiovascular History of Cardiac Disorders: No Neurological History of Neurological Disord: Yes (restless leg syndrome) Neurological Disorders: Headaches /Migraines 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 System Hx 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: Yes (HX ENDOMETRIOSIS ) Sexually Transmitted Disease: No HIV/AIDS: No 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, 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 MARGARINE MAKER History: 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 Genitourinary History of Genitourinary Disor: Yes (L KIDNEY REMOVED) Genitourinary Disorders: UTI-Chronic Gastrointestinal History of Gastrointestinal Di: Yes (ENLARGED LIVER) Gastrointestinal Disorders: Pancreatitis, Polyps Musculoskeletal History of Musculoskeletal Dis: Yes (COCCYX-REPAIRED, MAY HAVE SIGNS OF ARTHRITIS) Musculoskeletal Disorders: Chronic Back Pain Endocrine History of Endocrine Disorders: No HEENT History of HEENT Disorders: No Loss of Vision: Denies Hearing Impairment: Denies Cancer History of Cancer: No Psychosocial History of Psychiatric Problem: Yes Behavioral Health Disorders: Anxiety, Depression Integumentary History of Skin or Integumenta: No Skin/Integumentary Disorders: Herpes Blood Transfusions History of Blood Disorders: No Adverse Reaction to a Blood Tr: No Family Medical History Significant Family History: Cancer, Diabetes, Hypertension Family Medial History: Cardiovascular disease 19 FATHER Completed stroke 19 FATHER Diabetes mellitus 19 FATHER Hypercholesterolemia 19 FATHER 19 MOTHER Hypertension 19 FATHER 19 MOTHER Neoplasm 19 MOTHER Psychosocial problem 19 FATHER 19 MOTHER Physical Exam Vital Signs Vital Sign - Last 12Hours 04/17/17 04/17/17 21:29 22:11 Temp 98.5 Pulse 86 Resp 16 B/P (MAP) 167/79 Pulse Ox 98 O2 Delivery Room Air Capillary Refill : Less Than 3 Seconds Progress/Results/Core Measures Results/Orders My Orders Orders - KIARA CALVERT Ct Abdomen/Pelvis Wo (04/17/17 22:46) Diazepam Injection (Valium Injection) (04/18/17 00:30) Ketorolac Injection (Toradol Injection) (04/18/17 00:16) Vital Signs/I&O Vital Sign - Last 12Hours 04/17/17 04/17/17 21:29 22:11 Temp 98.5 Pulse 86 80 Resp 16 20 B/P (MAP) 167/79 133/62 Pulse Ox 98 O2 Delivery Room Air Blood Pressure Mean: 85 Departure Impression Impression: Primary Impression: Strain of abdominal muscle Additional Impression: Incisional hernia without obstruction or gangrene Disposition: 01 HOME, SELF-CARE Condition: Improved Departure-Patient Inst. Decision time for Depature: 00:23 Referrals: CARMEN GIBBS MD (PCP/Family) Primary Care Physician Patient Instructions: Abdominal Muscle Strain (DC), Abdominal Wall Hernias Add. Discharge Instructions: All discharge instructions reviewed with patient and/or family. Voiced understanding. Medications as instructed. Continue usual home medications. Wear the abdominal binder as instructed by your surgeon. Follow-up with Dr. Poe as an outpatient for a recheck, call tomorrow morning for appointment time. Return to the emergency department for worsened symptoms, fever, abdominal swelling, vomiting, difficulty with urination, or any other concerns. Scripts Diazepam (Diazepam) 5 Mg Tablet 5 MG PO Q6H Y for SPASMS, #10 TAB 0 Refills Prov: KIARA CALVERT 04/18/17 KIARA CALVERT Apr 17, 2017 22:50
[2017-04-18] MEDS ORDERED: KETOROLAC 60 MG/2 ML VIAL IM STA (00:16)
[2017-04-18] MEDS ORDERED: DIAZ5TAB3 PO (00:29)
[2017-04-18] MEDS ORDERED: DIAZEPAM INJ 10 MG/2 ML (VALIUM) SYR IM ONE (00:30)
[2017-04-18 01:11] VITALS: BP 118/89
--- NOTE | 2017-04-18 08:07 | Diagnostic Imaging Report ---
PROCEDURE: CT abdomen and pelvis without contrast. TECHNIQUE: Multiple contiguous axial images were obtained through the abdomen and pelvis without the use of intravenous contrast. INDICATION: Left nephrectomy, abdominal pain. FINDINGS: The recent CT abdomen/pelvis exam of 04/13/17 noted a poorly defined area of abnormal density in the left renal fossa measuring approximately 4 x 7 CM. This was felt to be secondary to hemorrhage/fluid related to the patient's recent left nephrectomy. On this exam, the area of abnormal density in the left renal fossa is again evident and has diminished in size and now measures 3.6 x 6.8 CM. The previous exam also identified a roughly 5 CM defect in the abdominal wall musculature laterally on the left just superior to level of the iliac crest. That finding is again evident and no different. In this same region, there was considerable distortion of the subcutaneous fat as well as a few droplets of gas in the subcutaneous fat. There is still some distortion of the subcutaneous fat in this area although it is not quite as striking as on the prior exam. The gas noted previously has resolved. Also, as noted on the prior exam, there is slight distortion of the pericolonic fat in the distal descending colon. There are few diverticula in the descending colon in this area, but I suspect the distortion of pericolonic fat is more likely a sequela of patient's recent left kidney surgery than due to acute diverticulitis. There is no mass or abscess identified. The appendix appears to be surgically absent. The gallbladder and uterus are also surgically absent. The right kidney, the liver, the spleen, the pancreas, the adrenals, the aorta and inferior vena cava show no sign of an acute abnormality. The stomach is filled with particulate matter and consequently difficult to assess. The urinary bladder is grossly unremarkable. The images through the lung bases do show that there is a persistent 1.1 x 1.9 CM nodular density in the left lower lobe near the diaphragm. In retrospect this was also present on the prior CT chest exam of 08/16/16 although it may have been slightly smaller . I am not certain that this finding has changed significantly. Whether this is secondary to a small focus of scar formation or whether this is neoplastic in nature is unclear. If further evaluation is desired, then PET/CT would be recommended. If the PET/CT exam is not performed, then a short-term (three-month) followup CT chest exam should be obtained. The alveolar/interstitial infiltrates involving both lungs seen previously are again evident . The bone windows show no sign of a fracture or destructive lesion. There is no obvious breast mass. IMPRESSION: 1. The abnormal soft tissue density in the left renal fossa seen previously is again evident and slightly smaller. I suspect that this is related to resolving hemorrhage/hematoma formation as opposed to an abscess. Clinical followup is recommended. 2. The defect in the anterior abdominal wall laterally on the left seen on the prior exam is again noted and unchanged. There does seem to be somewhat less edema/inflammation of the subcutaneous fat in this area and the gas in the subcutaneous fat noted previously has resolved. 3. There is no acute abnormality of the abdomen or pelvis noted otherwise. 4. The appendix, gallbladder and uterus are surgically absent. 5. The nodular density near the left hemidiaphragm is of uncertain etiology. Considerations and recommendations as above. Dictated by: Dictated on workstation # [id number]
== END 2017-04-18 01:11 | disposition home or self-care (01) ==
LOC: EDUNIT# 20:43 → ER 20:45
DX: K43.2 Incisional hernia without obstruction or gangrene (principal); J45.909 Unspecified asthma, uncomplicated; G43.909 Migraine, unspecified, not intractable, without status migrainosus; F41.9 Anxiety disorder, unspecified; F32.9 Major depressive disorder, single episode, unspecified; Z82.49 Family history of ischemic heart disease and other diseases of the circulatory system; Z86.19 Personal history of other infectious and parasitic diseases; Z87.440 Personal history of urinary (tract) infections; Z90.89 Acquired absence of other organs; Z90.710 Acquired absence of both cervix and uterus; Z98.890 Other specified postprocedural states
CPT/HCPCS: 74176; 99282; 99284

== ENCOUNTER 2017-04-30 01:08 | Emergency (ER) | payer MEDICARE, MEDICAID ==
[~2017-04-30] VITALS: Ht 160 cm; Wt 102.1 kg
[~2017-04-30 01:08] MED LIST changes: +DIAZ5TAB3 PO
--- OUTSIDE RECORDS SUMMARY | 2017-04-30 01:13 | XMS REPORT | Continuity of Care Document ---
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 [place] SERIES [id number] [facility] 03/18/2017 03/18/[address] [facility] INPATIENT [id number] [facility] 04/10/2017 04/11/[address] [facility] Active [facility] Procedures Plan of Care Social History Assessment and Plan Family History Value Date Source Advance Directives Order Name Results Value Date Source
--- OUTSIDE RECORDS SUMMARY | 2017-04-30 01:14 | XMS REPORT | Encounter Summary ---
Author Author [facility] Organization [facility] Address Unknown Phone Unavailable Care Team Providers Care Fitting Room Supervisor Name Role Phone PCP Unavailable Reason for Visit * Reason Comments Abdominal pain Encounter Details Date Type Department Care Team Description 04/29/2017 Telephone [facility] Abel Poe MD Abdominal pain [facility] Exam [address] [place] [address] [place] [address] [phone] Social History Tobacco Use Types Packs/Day Years [...] encounter Miscellaneous Notes * Telephone Encounter - Maddi Cannon RN - 04/29/2017 3:09 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 Dr Poe aware. Instructed pt to come to ER. Pt states she will attempt if she can get transportation. in this encounter Plan of Treatment Not on fileas of this encounter Visit Diagnoses Not on filein this encounter
--- OUTSIDE RECORDS SUMMARY | 2017-04-30 01:14 | XMS REPORT | Clinical Summary ---
Author Author [facility] Organization [facility] Address Unknown Phone Unavailable Care Team Providers Care Ship Erector Name Role Phone PCP Unavailable Source Comments Some departments are not documenting in the electronic medical record. If you do not see the information that you expected, contact Release of Information in the Health Information Management department at [phone] for further assistance in locating additional records.[facility] Allergies Active Allergy Reactions Severity Noted Date [...] 17 tabletIndications: PAIN for Pain Indications: PAIN rOPINIRole (REQUIP) 2 mg Take 4 mg by mouth at 04/11/20 Discontin tablet bedtime daily. 17 ued DIPHENHYDRAMINE HCL Take by mouth as Needed. 04/11/20 Discontin (BENADRYL ALLERGY PO) 17 ued estradiol (ESTRACE) 1 mg Take 2 mg by mouth at 04/11/20 Discontin tablet bedtime daily. 17 ued ibuprofen (MOTRIN) 800 mg Take 800 mg by mouth 04/11/20 Discontin tablet every 6 hours as needed 17 ued for Pain. fluoxetine (PROZAC) 20 mg Take 60 mg by mouth at 04/11/20 Discontin capsule bedtime daily. 17 ued HYDROcodone/acetaminophen Take 1 tablet by mouth 04/11/20 Discontin (NORCO) 7.5/325 mg tablet every 6 hours as needed 17 ued for Pain Active Problems Problem Noted Date Left renal mass 04/10/2017 Renal mass 03/21/2017 Overview: Added automatically from request for surgery [id number] 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 06/24/2013 Overview: S/P HOLLAND, BSO 11/27 Depression 06/24/2013 S/P cholecystectomy 06/24/2013 Overview: 2007 S/P appendectomy 06/24/2013 Overview: November 2012 Pancreatitis 10/23/2011 Encounters Date Type Specialty Care Team Description 04/29/2017 Telephone Oncology Abel Poe MD Abdominal pain 04/23/2017 Orders Only Oncology Abel Poe MD Renal mass (Primary Dx ) 04/22/2017 Telephone Urology Gricel Siegel MD General Question 04/17/2017 Telephone Oncology Abel Poe MD Abdominal pain 04/15/2017 Ancillary Radiology Outpatient, Radiologist Diagnosis unknown Orders 04/15/2017 Telephone Abel Poe MD Results 04/13/2017 Hospital Radiology Encounter 04/13/2017 Telephone Urology Katharina Vann MD General Question 04/10/2017 Hospital Abel Poe MD Renal mass - Encounter 04/11/2017 04/10/2017 Telephone Urology Randy Recio MD Error 04/10/2017 Procedure Pass 04/10/2017 Surgery Abel Poe MD NEPHRECTOMY LAPAROSCOPY 04/09/2017 Anesthesia Parvez Mayen, MONIE Event 03/21/2017 Ancillary Radiology Outpatient, Radiologist Diagnosis [...] Performing Laboratory [facility] [address] [place] [address] * BASIC METABOLIC PANEL (04/11/2017 4:41 AM) [...] Specimen Performing Laboratory [facility] [address] [place] [address] * ANESTHESIA PERIPHERAL NERVE BLOCK (04/10/2017 6:48 [...] Component Value Ref Range PATHOLOGY REPORT [facility] [email or web address] Shaylee Black MD, PhD, Director of Anatomic Pathology Department of Pathology and Laboratory Medicine [address] [place] [id number] Surgical Pathology Office: [phone] SURGICAL PATHOLOGY REPORT NAME: JANETH DELGADO SURG PATH #: [id number] MR #: [id number] SPECIMEN CLASS: SR BILLING #: [id number] ALT ID #: LOCATION: 53 DATE OF [...] status and/or prior pathology. Pursuant to the Lab[employer] Cutting [employer] Program at the [facility] Pathology Department, selected slides from this [...] is inked black. Lymph nodes identified: No Mud Temperer sections of the specimen are submitted as follows: A1-A2 Vascular and ureteral margins. A3 Tumor to nearest capsule/Gerota's fascia including surrounding perinephric fat. A4 Tumor to adjacent normal kidney. A5 Tumor to renal pelvis. A6-A8 Tumor to renal sinus fat. nd/04/10/2017 Specimen Performing Laboratory LAB RESULTS * BLOOD TYPE CONFIRMATION - ORDER ONLY IF REQUESTED BY LAB (04/10/2017 9:44 AM) Component Value Ref Range ABO/RH(D) A NEG Specimen Performing Laboratory [facility] [address] [place] [id number] * TYPE & CROSSMATCH (04/10/2017 9:29 AM) Component Value Ref Range Units Ordered 0 Crossmatch Expires 04/13/2017 Record Check 2ND TYPE REQUIRED ABO/RH(D) A NEG Antibody Screen NEG Electronic Crossmatch YES Specimen Performing Laboratory [facility] [address] [place] [address] * GENERAL RAD CHEST EXTERNAL IMAGING (03/07/2017 12:30 AM) Narrative This order has been auto finalized and does not contain a result. * GENERAL RAD ABDOMEN EXTERNAL IMAGING (03/07/2017 12:15 AM) Narrative This order has been auto finalized and does not contain a result. from Last 3 Months
--- OUTSIDE RECORDS SUMMARY | 2017-04-30 01:14 | XMS REPORT | Encounter Summary ---
Author Author [facility] Organization [facility] Address Unknown Phone Unavailable Care Team Providers Care Critical Care Clinical Nurse Specialist Name Role Phone PCP Unavailable Encounter Details Date Type Department Care Team Description 04/23/2017 Orders Only [facility] Abel Poe MD Renal mass (Primary Dx) [facility] [address] [place] [address] [place] [address] [phone] Social History Tobacco Use Types Packs/Day Years [...]
--- OUTSIDE RECORDS SUMMARY | 2017-04-30 01:16 | XMS REPORT | Encounter Summary ---
Author Author [facility] Organization [facility] Address Unknown Phone Unavailable Care Team Providers Care Cutter Machine Tender Name Role Phone PCP Unavailable Reason for Visit * Reason Comments General Question Encounter Details Date Type Department Care Team Description 04/22/2017 Telephone [facility] Gricel Siegel MD General Question Physicians - Urology [address] [place] [address] [address] MED [phone] [place] [address] Social History Tobacco Use Types [...] encounter Miscellaneous Notes * Telephone Encounter - Gricel Siegel MD - 04/22/2017 7:49 AM LABOR SPECIALIST Call back placed to patient. She is having significant pain along her incision and around her umbilicus. She denies fevers, chills, or emesis, but has had some emesis. She is having normal bowel function. She states she was seen at the Emergency Room last week with nothing abnormal noted. She states that her pain has worsened and that her abdomen is much firmer today. I recommended that she be evaluated immediately as she states her pain is so bad she can barely get out of bed. Routing this message to Dr. Poe. in this encounter Plan of Treatment Not on fileas of this encounter Visit Diagnoses Not on filein this encounter
--- OUTSIDE RECORDS SUMMARY | 2017-04-30 01:17 | XMS REPORT | Encounter Summary ---
Author Author [facility] Organization [facility] Address Unknown Phone Unavailable Care Team Providers Care Corporate Wellness Coordinator Name Role Phone PCP Unavailable Reason for Visit * Reason Comments Abdominal pain Encounter Details Date Type Department Care Team Description 04/17/2017 Telephone [facility] Abel Poe MD Abdominal pain [facility] [address] [place] [address] [place] [address] [phone] Social History Tobacco Use Types Packs/Day Years [...]
--- OUTSIDE RECORDS SUMMARY | 2017-04-30 01:17 | XMS REPORT | Encounter Summary ---
Author Author [facility] Organization [facility] Address Unknown Phone Unavailable Care Team Providers Care Handle Rounder Operator Name Role Phone PCP Unavailable Reason for Visit * Reason Comments Results Encounter Details Date Type Department Care Team Description 04/15/2017 Telephone [facility] UROLOGY Abel Poe MD Results [address] [place] [address] Social History Tobacco Use Types [...]
--- OUTSIDE RECORDS SUMMARY | 2017-04-30 01:17 | XMS REPORT | Encounter Summary ---
Author Author [facility] Organization [facility] Address Unknown Phone Unavailable Care Team Providers Care Shoe Parts Caser Name Role Phone PCP Unavailable Encounter Details Date Type Department Care Team Description 04/15/2017 Ancillary Rad Outpatient, Radiologist Diagnosis unknown Orders [address] [place], [place] [id number] Social History Tobacco Use Types Packs/Day Years [...]
--- OUTSIDE RECORDS SUMMARY | 2017-04-30 01:19 | XMS REPORT | Encounter Summary ---
Author Author [facility] Organization [facility] Address Unknown Phone Unavailable Care Team Providers Care Entry Level Mechanical Engineer Name Role Phone PCP Unavailable Encounter Details Date Type Department Care Team Description 04/13/2017 Hospital [facility] Encounter Hospital Radiology [address] [place] [address] Social History Tobacco Use Types Packs/Day Years Used Date Never Smoker Smokeless Tobacco: Never Used Alcohol Use Drinks/Week oz/Week Comments Yes Does not consume alcohol in excess. Sex Assigned at Date Recorded Not on file as of this encounter Functional Status Functional Status Response Date of Assessment Does the patient have a hearing impairment: No 04/10/2017 as of this encounter Medications at Time [...] needed. Indications: PAIN as of this encounter Plan of Treatment Not on fileas of this encounter Results * CT ABD/PEL EXTERNAL IMAGING (04/13/2017) Narrative This order has been auto finalized and does not contain a result. in this encounter Visit Diagnoses Diagnosis Diagnosis unknown Other unknown and unspecified cause of morbidity or mortality in this encounter
--- OUTSIDE RECORDS SUMMARY | 2017-04-30 01:20 | XMS REPORT | Encounter Summary ---
Author Author [facility] Organization [facility] Address Unknown Phone Unavailable Care Team Providers Care Division Plant Engineer Name Role Phone PCP Unavailable Reason for Visit * Reason Comments General Question Encounter Details Date Type Department Care Team Description 04/13/2017 Telephone [facility] Katharina Vann MD General Question Physicians - Urology [address] [facility] [address] [place] [address] [address] [place] [phone] Social History Tobacco Use Types Packs/Day Years [...]
--- OUTSIDE RECORDS SUMMARY | 2017-04-30 01:21 | XMS REPORT | Encounter Summary ---
Author Author [facility] Organization [facility] Address Unknown Phone Unavailable Care Team Providers Care Baseball Glove Stuffer Name Role Phone PCP Unavailable Encounter Details Date Type Department Care Team Description 03/13/2017 Ancillary Rad Outpatient, Radiologist Diagnosis unknown Orders [address] [place], [place] [id number] Social History Tobacco Use Types Packs/Day Years [...]
--- OUTSIDE RECORDS SUMMARY | 2017-04-30 01:21 | XMS REPORT | Encounter Summary ---
Author Author [facility] Organization [facility] Address Unknown Phone Unavailable Care Team Providers Care Yard Goods Salesperson Name Role Phone PCP Unavailable Reason for Visit * Reason Comments Appointment Request Encounter Details Date Type Department Care Team Description 03/19/2017 Telephone [facility] Randy Nunez MD Appointment Request Physicians - Internal [address] [facility] Medicine [address] [place] [address] [place] [address] Social History Tobacco Use Types [...]
--- OUTSIDE RECORDS SUMMARY | 2017-04-30 01:21 | XMS REPORT | Encounter Summary ---
Author Author [facility] Organization [facility] Address Unknown Phone Unavailable Care Team Providers Care Specialty Trimmer Name Role Phone PCP Unavailable Reason for Visit * Auth/Cert Status Reason Specialty Diagnoses / Referred By Referred To Procedures Contact Contact Diagnoses Renal mass unknown P rocedures NEPHRECTOMY LAPAROSCOPY Encounter Details Date Type Department Care Team Description 04/10/2017 Hospital Surg Onc/Uro/Dovetail Machine Operator Onc Abel Heart MD Renal mass - Encounter [address] 04/11/2017 [place] [address] [address] [place] [address] [phone] Social History Tobacco Use Types Packs/Day Years [...] No 04/10/2017 as of this encounter Discharge Summaries * Kristen Mars - 04/11/2017 2:41 PM CDT Formatting of this note may be different from the original. Physician Discharge Summary Name: Janeth Delgado Date Of : 1985 Age: 32 years Admit date: 04/10/2017 Discharge date: 04/11/2017 Attending Physician: Dr. 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 Significant PMH: Past Medical History: Diagnosis Date Abdominal pain, chronic, epigastric Acute pancreatitis Of unclear etiology Asthma Biliary dyskinesia Colon polyp History of inflamed juvenile polyp versus adenoma Constipation Hematochezia Major depressive disorder With prior suicide attempts Meningitis At age 3 months old Morbid obesity (HCC) Nausea and vomiting Intermittent, normal gastric emptying study Ovarian cyst Pancreatitis EUS showing changes of chronic pancreatitis RLS (restless legs syndrome) Trichotillomania Vitamin D deficiency Weight gain Unintentional significant Allergies: Penicillins; Demerol (pf) [meperidine (pf)]; and Fentanyl Admission Physical Exam notable for: Renal mass Admission Lab/Radiology studies notable for: Renal mass Brief Hospital Course: Admitted post-op. No issues overnight. She was ready for discharge the following day. 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 Surgical Procedures: 04/10/17 NEPHRECTOMY LAPAROSCOPY (Left) Significant Diagnostic Studies and Procedures: None Consults: None Patient Disposition: Home Patient instructions/medications: Basic Metabolic Panel (BMP) Standing Status: Future Standing Exp. Date: 04/11/18 Strenuous Activity Restrictions Please refrain from strenuous activity for 6 week(s). No lifting more than 10 pounds for 6 weeks. Report These Signs and Symptoms Please notify physician if experiencing any chest pain, shortness of breath, calf tenderness or unilateral leg swelling, uncontrolled pain, incision redness or foul smelling drainage from wound, fevers >101.5, or any other worsening signs/symptoms. Questions About Your Stay For questions or concerns regarding your hospital stay. Call [phone] You may have questions about your hospital stay after you get home. From 8 AM to 4 PM Saturday through Saturday, please call Dr. Haert's unit secretary to have the nurse practitioner paged at . Dr. Heart's unit secretary can also assist with questions regarding your follow up appointment. If calling after hours or with urgent questions, please call and ask for the urology resident water pumping station engineer. In case of an emergency, please report to your nearest emergency department and contact us on the way. Discharging attending physician: ABEL HEART [[id number]] Regular Diet You have no dietary restriction. Please continue with a healthy balanced diet. Incision Care *Keep your incision clean and dry. Take daily showers. *May shower following procedure. Avoid direct water contact to the incision. Take sponge baths, working around the incision during this time. *Do not submerge incision in tub, pool, hot tub, or hurd for 4 weeks. *Usually there are not stitches to be removed. Steri-strips (strips of tape) will begin to fall off in 10-14 days. If they remain after 2 weeks, gently remove them when they are damp after a shower. *Your incision should gradually look better each day. If you notice unusual swelling, redness, drainage, have increasing pain at the site, or have a fever greater than 100 degrees, notify your physician immediately. Return Appointment Labs at 9:00, you will see Dr. Heart at 9:45 [facility] Provider ABEL HEART [[id number]] Location [facility] Appointment date: 05/06/2017 Opioid (Narcotic) Safety Information OPIOID (NARCOTIC) PAIN MEDICATION SAFETY We care about your comfort, and believe you need opioid medications at this time to treat your pain. An opioid is a strong pain medication. It is only available by prescription for moderate to severe pain. Usually these medications are used for only a short time to treat pain, but sometimes will be prescribed for longer. Talk with your doctor or nurse about how long they expect you to need this medication. When used the right way, opioids are safe and effective medications to treat your pain, even when used for a long time. Yet, when used in the wrong way, opioids can be dangerous for you or others. Opioids do not work for everyone. Most patients do not get full relief of their pain from opioid medication; full relief of your pain may not be possible. For your safety, we ask you to follow these instructions: *Only take your opioid medication as prescribed. If your pain is not controlled with the prescribed dose, or the medication is not lasting long enough, call your doctor. *Do not break or crush your opioid medication unless your doctor or pharmacist says you can. With certain medications, this can be dangerous, and may cause . *Never share your medications with others, even if they appear to have a good reason. Never take someone else's pain medication-this is dangerous, and illegal (a crime). Overdoses and deaths have occurred. *Keep your opioid medications safe, as you would with mahmood, in a lock box or similar container. *Make sure your opioids are going to be secure, especially if you are around children or teens. *Talk with your doctor or pharmacist before you take other medications. *Avoid driving, operating machinery, or drinking alcohol while taking opioid pain medication. This may be unsafe. Pain medications can cause constipation. Constipation is bowel movements that are less often than normal. Stools often become very hard and difficult to pass. This may lead to stomach pain and bloating. It may also cause pain when trying to use the bathroom. Constipation may be treated with suppositories, laxatives or stool softeners. A diet high in fiber with plenty of fluids helps to maintain regular, soft bowel movements. Current Discharge Medication List START taking these medications Details polyethylene glycol 3350 (MIRALAX) 17 g packet Take 1 packet by mouth daily. Indications: CONSTIPATION Qty: 12 each, Refills: 5 PRESCRIPTION TYPE: Print Comments: May substitute container for packets. senna/docusate (SENOKOT-S) 8.6/50 mg tablet Take 1 tablet by mouth twice daily. Indications: CONSTIPATION Qty: 15 tablet, Refills: 0 PRESCRIPTION TYPE: Print traMADol (ULTRAM) 50 mg tablet Take 1-2 tablets by mouth every 6 hours as needed. Indications: PAIN Qty: 30 tablet, Refills: 0 PRESCRIPTION TYPE: Print CONTINUE these medications which have been CHANGED or REFILLED Details fluoxetine (PROZAC) 20 mg capsule Take 2 capsules by mouth at bedtime daily. Qty: 90 capsule, Refills: 3 PRESCRIPTION TYPE: No Print HYDROcodone/acetaminophen (NORCO) 7.5/325 mg tablet Take 1 tablet by mouth every 6 hours as needed for Pain Indications: PAIN Qty: 20 tablet, Refills: 0 PRESCRIPTION TYPE: Print CONTINUE these medications which have NOT CHANGED Details diphenhydrAMINE (BENADRYL ALLERGY) 25 mg tablet Take 50 mg by mouth every 6 hours as needed. PRESCRIPTION TYPE: Historical Med estradiol (ESTRACE) 2 mg tablet Take 2 mg by mouth at bedtime daily. PRESCRIPTION TYPE: Historical Med ondansetron (ZOFRAN ODT) 8 mg rapid dissolve tablet DISSOLVE ONE TABLET IN MOUTH EVERY 8 HOURS NEEDED FOR NAUSEA; NEED GI OFFICE VISIT FOR ANY ADDITIONAL REFILLS Qty: 60 Tab, Refills: 0 PRESCRIPTION TYPE: Normal rOPINIRole (REQUIP) 4 mg tablet Take 4 mg by mouth at bedtime daily. PRESCRIPTION TYPE: Historical Med The following medications were removed from your list. This list includes medications discontinued this stay and those removed from your prior med list in our system ibuprofen (MOTRIN) 800 mg tablet Scheduled appointments: May 06, 2017 9:00 AM ACUTE CARE ASSISTANT (Arrive by 8:45 AM) Phlebotomy Draw with CC PHLEBOTOMY CHAIR [facility] Exam (--) [address] [id number] May 06, 2017 9:45 AM ACUTE CARE ASSISTANT (Arrive by 9:30 AM) Post-Op with Abel Heart MD [facility] Exam (--) [address] [address] Jun 03, 2017 10:30 AM ACUTE CARE ASSISTANT Return Patient with Randy Nunez MD [facility] ([facility]) [address] [facility] [address] Pending items needing follow up: None Signed: Randy Recio MD 04/25/2017 cc: Primary Care Physician: Mary Whittington Verified Referring physicians: Mary Whittington MD Additional provider(s): in this encounter Discharge Instructions * Pre-Anesthesia Medication [...] (Aleve) You may use acetaminophen (Tylenol) and Agness Morning of surgery On the morning of surgery, do NOT take these medications: Remaining vitamins/supplements Ointments/creams/lotions On the morning of surgery, take ONLY these medications with a sip (1-2 ounces) of water: Agness If needed Zofran if needed Other information Before surgery, please contact TIMUR Barajas with any medicine updates or questions. E-mail: [email or web address] Before going home from the hospital, [...] -- located next to admissions in the [employer]. If you cannot obtain this soap, use [...] and any other valuables at home. The [facility] is not responsible for the loss or breakage of personal items. Remove nail lebanese, makeup and all jewelry (including piercings) before coming to the hospital. The morning of your procedure: brush your teeth and tongue do not smoke do not shave the area where you will have surgery What to bring to the hospital ID/ Insurance Card Customer Sales Representative card Official documents for legal guardianship Copy of your Living Will, Advanced Directives, and/or Durable Power of Belt Cleaner Small bag with a few personal belongings [...] call by 4:00 you may call or [phone] after 4:30. Notify us at [facility]: if you need to cancel your procedure if you are going to be late Arrival at the [facility]: Park in the [place] [facility] located directly across from the main entrance to the hospital. Payroll Director parking is available from 7 AM to [...] Vann MD PGY-1 Urology Please page urology water pumping station engineer with questions ATTESTATION I personally performed the [...] Intake/Output Summary (Last 24 hours) at 04/11/17 5783 Last data filed at 04/11/17327 Gross per 24 hour Intake 4640 ml [...] GLU 92 CA 9.2 * Bruna Fletcher, STELLA - 04/10/2017 6:30 PM CDT Formatting of [...] and adjust therapy as needed. Bruna Fletcher, STELLA 04/10/2017 * Mariana Gallo RT - 04/10/2017 6:17 PM CDT Formatting [...] Date: 04/10/2017 Guillermo AC=Airway clearance AM=Aerosolized medication BA=Galena aerosol DB&C=Deep breathe & cough FEV1=Forced expiratory volume in first second) IC=Inspiratory capacity LE=Lung expansion MDI=Metered dose inhaler Neb=Nebulizer O2=Oxygen Oxim=Oximetry PEFR=Peak expiratory flow rate INVENTORY SPECIALIST MANAGER=Rapid Response Team * Venecia Wheeler RN [...] for 7 days. May take Zofran and Agness day of surgery. NPO after 11:00 pm [...] was induced. The patient was intubated. A 16-Citizen Of The [place] Romero catheter was placed per urethra under [...] Left SURGICAL PATHOLOGY Abel Heart MD 04/10/2017 0686 Randy Recio MD ATTESTATION I performed this [...] Performing Laboratory [facility] [address] [place] [address] * BASIC METABOLIC PANEL (04/11/2017 4:41 AM) [...] Performing Laboratory [facility] [address] [place] [address] * SURGICAL PATHOLOGY (04/10/2017 3:00 PM) Component Value Ref Range PATHOLOGY REPORT [facility] [email or web address] Shaylee Black MD, PhD, Director of Anatomic Pathology Department of Pathology and Laboratory Medicine [address] [place] [id number] Surgical Pathology Office: [phone] SURGICAL PATHOLOGY REPORT NAME: JANETH DELGADO SURG PATH #: [id number] MR #: [id number] SPECIMEN CLASS: SR BILLING #: [id number] ALT ID #: LOCATION: 53 DATE OF [...] status and/or prior pathology. Pursuant to the Grinding Room Supervisor Program at the [facility] [...] this report. +++ +++ Marlo Bobby M.D. ksw/04/11/2017 ################################################## ###################### Material Received: A: left kidney [...] is inked black. Lymph nodes identified: No Inspector Printed [employer] Boards sections of the specimen are submitted as follows: A1-A2 Vascular and ureteral margins. A3 Tumor to nearest capsule/Gerota's fascia including surrounding perinephric fat. A4 Tumor to adjacent normal kidney. A5 Tumor to renal pelvis. A6-A8 Tumor to renal sinus fat. nj/04/10/2017 Specimen Performing Laboratory [facility] RESULTS * BLOOD TYPE CONFIRMATION - ORDER ONLY IF REQUESTED BY LAB (04/10/2017 9:44 AM) Component Value Ref Range ABO/RH(D) A NEG Specimen Performing Laboratory [facility] [address] [place] [address] * TYPE & CROSSMATCH (04/10/2017 9:29 AM) Component Value Ref Range Units Ordered 0 Crossmatch Expires 04/13/2017 Record Check 2ND TYPE REQUIRED ABO/RH(D) A NEG Antibody Screen NEG Electronic Crossmatch YES Specimen Performing Laboratory [facility] [address] [place] [address] * BASIC METABOLIC PANEL (04/10/2017 9:29 AM) [...] Specimen Performing Laboratory [facility] [address] [place] [address] * CBC (04/10/2017 9:29 AM) Component Value [...] Performing Laboratory [facility] [address] [place] [address] in this encounter Visit Diagnoses Diagnosis Renal [...] levofloxacin (LEVAQUIN) 500 mg/100 mL Given - New 04/10/2017 500 mg IVPB Bag 18:27 CDT 500 mg, 100 mL, Administer over 60 Minutes, Intravenous, ONCE, 1 dose, Sat04/10/17 at 1715, sx ppx with vanc oxyCODONE (ROXICODONE, OXY-IR) tablet 5 Given 04/11/2017 5 mg mg 02:14 CDT 5 mg, Oral, EVERY 3 HOURS PRN, Starting Sat04/10/17 at 1731, Until Sat04/11/17 at 1652, Pain PO, Try tramadol first [...] 08:15 CDT vancomycin (VANCOCIN) 1,750 mg in - 04/10/2017 1,750 mg 233 mL/hr dextrose 5% (D5W) IVPB Bag 11:05 CDT 1,750 mg (rounded from 1,711.5 mg=15 mg/kg 114.1 kg), Intravenous, 350 mL, Administer over 90 Minutes, ONCE, 1 dose, Sat04/10/17 at 1100, To be given <120 minutes prior to surgical incision vancomycin (VANCOCIN) 1,750 mg in 04/10/2017 1,750 mg 233 mL/hr dextrose 5% (D5W) IVPB Bag 23:11 CDT 1,750 mg, Intravenous, 350 mL, Administer over 90 Minutes, EVERY 12 HOURS, 2 doses, First dose on Sat04/10/17 at 2300, Last dose on Sat04/11/17 at 1100, Note Pharmacokinetic Monitoring: Please record infusion start time (Action=Given) and stop time (Action=Completed) of dose when blood levels are drawn. Given - New Bag 04/11/2017 1,750 mg 233 mL/hr 11:30 CDT in this encounter
--- OUTSIDE RECORDS SUMMARY | 2017-04-30 01:21 | XMS REPORT | Encounter Summary ---
Author Author [facility] Organization [facility] Address Unknown Phone Unavailable Care Team Providers Care Adjunct Writing Instructor Name Role Phone PCP Unavailable Reason for Visit * Reason Comments Error Encounter Details Date Type Department Care Team Description 04/10/2017 Telephone [facility] Randy Recio MD Error Physicians - Urology [address] [facility] [address]ND FLOOR POD [address] [place] [address] OFFICE BLDG [phone] [place] [address] Social History Tobacco Use Types [...]
--- OUTSIDE RECORDS SUMMARY | 2017-04-30 01:21 | XMS REPORT | Encounter Summary ---
Author Author [facility] Organization [facility] Address Unknown Phone Unavailable Care Team Providers Care Quality Assurance Director Name Role Phone PCP Unavailable Encounter Details Date Type Department Care Team Description 03/21/2017 Ancillary Rad Outpatient, Radiologist Diagnosis unknown Orders [address] [place], [place] [id number] Social History Tobacco Use Types Packs/Day Years [...]
--- OUTSIDE RECORDS SUMMARY | 2017-04-30 01:21 | XMS REPORT | Encounter Summary ---
Author Author [facility] Organization [facility] Address Unknown Phone Unavailable Care Team Providers Care Components Engineer Name Role Phone PCP Unavailable Reason for Visit * Reason Comments Heme/Onc Care Encounter Details Date Type Department Care Team Description 03/18/2017 Office Visit [facility] Abel Poe MD Renal mass (Primary Dx) [facility] [address] [place] [address] [place] [address] [phone] Social History Tobacco Use Types Packs/Day Years [...] Illness: 31 year old female presented to [facility] ED in [place], [place] on 03/07/17 with right upper quadrant [...] every 6 hours as needed for Pain. lnekvm-vnikfymy-nhdzxtw (ZENPEP) 40,000-136,000- 218,000 unit cpDR Take 80, [...] potential need for dialysis, neuropraxias from positioning, ND, PE, stroke and . Patient verbalized understanding [...]
--- OUTSIDE RECORDS SUMMARY | 2017-04-30 01:21 | XMS REPORT | Encounter Summary ---
Author Author [facility] Address Unknown Phone Unavailable Care Team Providers Care Electrical And Instrumentation Manager Name Role Phone PCP Unavailable Reason for Visit * Auth/Cert Status Reason Specialty Diagnoses / Referred By Referred To Procedures Contact Contact Diagnoses Renal mass unknown P rocedures NEPHRECTOMY LAPAROSCOPY Encounter Details Date Type Department Care Team Description 04/10/2017 Surgery Main Operating Room Abel Heart MD NEPHRECTOMY LAPAROSCOPY [address] [place] [address] [address] [place] [address] Social History Tobacco Use Types [...] or concerns regarding your hospital stay. Call [phone] You may have questions about your hospital stay after you get home. From 8 AM to 4 PM Saturday through Saturday, please call Dr. Heart's audio visual secretary to have the nurse practitioner paged at . Dr. Heart's audio visual secretary can also assist with questions regarding your follow up appointment. If calling after hours or with urgent questions, please call and ask for the urology resident information assurance analyst. In case of an emergency, please report to your nearest emergency department and contact us on the way. Discharging attending physician: ABEL HEART [[id number]] Regular Diet You have no dietary restriction. [...] you will see Dr. Heart at 9:45 Provider ABEL HEART [[id number]] Location [facility] Appointment date: 05/06/2017 Opioid (Narcotic) Safety Information [...] Scheduled appointments: May 06, 2017 9:00 AM FILM FLAT INSPECTOR (Arrive by 8:45 AM) Phlebotomy Draw with CC PHLEBOTOMY CHAIR [facility] Exam (--) [address] [phone] May 06, 2017 9:45 AM FILM FLAT INSPECTOR (Arrive by 9:30 AM) Post-Op with Abel Heart MD [facility] Exam (--) [address] [address] Jun 03, 2017 10:30 AM FILM FLAT INSPECTOR Return Patient with Randy Nunez MD [facility] ([facility]) [address] [facility] [address] Pending items needing follow up: None Signed: [...] (Aleve) You may use acetaminophen (Tylenol) and [place] Morning of surgery On the morning of surgery, do NOT take these medications: Remaining vitamins/supplements Ointments/creams/lotions On the morning of surgery, take ONLY these medications with a sip (1-2 ounces) of water: [place] If needed Zofran if needed Other information Before surgery, please contact TIMUR Barajas with any medicine updates or questions. E-mail: [email or web address] Before going home from the hospital, [...] and any other valuables at home. The [facility] is not responsible for the loss or breakage of personal items. Remove nail persian, makeup and all jewelry (including piercings) before coming to the hospital. The morning of your procedure: brush your teeth and tongue do not smoke do not shave the area where you will have surgery What to bring to the hospital ID/ Insurance Card Railroad Firer/Fireman card Official documents for legal guardianship Copy of your Living Will, Advanced Directives, and/or Durable Power of Distributor Cleaner Small bag with a few personal [...] a call by 4:00 you may call [phone] or [phone] after 4:30. Notify us at [facility]: if you need to cancel your procedure if you are going to be late Arrival at the [facility]: Park in the [place] [facility] located directly across from the main entrance to the hospital. [employer] Building parking is available from 7 AM to [...] Vann MD PGY-1 Urology Please page urology information assurance analyst with questions ATTESTATION I personally performed the [...] Cannula Intake/Output Summary (Last 24 hours) at 04/11/1723 Last data filed at 04/11/17 032 Gross per 24 hour Intake 4640 ml [...] >60 GLU 92 CA 9.2 * Bruna Fletcher PHARMD - 04/10/2017 6:30 PM CDT Formatting [...] Date: 04/10/2017 Guillermo AC=Airway clearance AM=Aerosolized medication BA=[place] aerosol DB&C=Deep breathe & cough FEV1=Forced expiratory volume in first second) IC=Inspiratory capacity LE=Lung expansion MDI=Metered dose inhaler Neb=Nebulizer O2=Oxygen Oxim=Oximetry PEFR=Peak expiratory flow rate WATER QUALITY CONTROL ENGINEER=Rapid Response Team * Venecia Wheeler RN - [...] for 7 days. May take Zofran and [place] day of surgery. NPO after 11:00 pm [...] * Anesthesia Post Op Day 1 - Doendre Ochoa CRNA - 04/11/2017 8:07 AM CDT [...] 805) O2 Delivery: None (Room Air) (04/11 0805) SpO2 Pulse: 84 (04/10 1645) Patient History [...] OF OPERATION: 04/10/2017 Surgeon(s) and Role: * Ranyd Recio MD - Resident - Assisting * [...] was induced. The patient was intubated. A 16-Guinean Romero catheter was placed per urethra under [...] 1 : Tissue Kidney, Left SURGICAL PATHOLOGY bAel Heart MD 04/10/2017 [id number] Randy Recio MD ATTESTATION I performed this [...] Performing Laboratory [facility] [address] [place] [address] * BASIC METABOLIC PANEL (04/11/2017 4:41 AM) [...] Performing Laboratory [facility] [address] [place] [address] * SURGICAL PATHOLOGY (04/10/2017 3:00 PM) Component Value Ref Range PATHOLOGY REPORT [facility] [email or web address] Shaylee Black MD, PhD, Director of Anatomic Pathology Department of Pathology and Laboratory Medicine [address] [place] [address] Surgical Pathology Office: [phone] SURGICAL PATHOLOGY REPORT NAME: JANETH DELGADO SURG PATH #: [id number] MR #: [id number] SPECIMEN CLASS: SR BILLING #: [id number] ALT ID #: LOCATION: 53 DATE OF [...] status and/or prior pathology. Pursuant to the Paster Hat Lining Program at the [facility] Pathology Department, selected slides from this case [...] is inked black. Lymph nodes identified: No Composition Weatherboard Applier sections of the specimen are submitted as [...] Specimen Performing Laboratory [facility] [address] [place] [address] * TYPE & CROSSMATCH (04/10/2017 9:29 AM) Component Value Ref Range Units Ordered 0 Crossmatch Expires 04/13/2017 Record Check 2ND TYPE REQUIRED ABO/RH(D) A NEG Antibody Screen NEG Electronic Crossmatch YES Specimen Performing Laboratory [facility] [address] [place] [address] * BASIC METABOLIC PANEL (04/10/2017 9:29 AM) [...] Specimen Performing Laboratory [facility] [address] [place] [address] * CBC (04/10/2017 9:29 AM) Component Value [...] Performing Laboratory [facility] [address] [place] [address] in this encounter Visit Diagnoses Diagnosis Renal [...]
--- OUTSIDE RECORDS SUMMARY | 2017-04-30 01:21 | XMS REPORT | Encounter Summary ---
Author Author [facility] Organization [facility] Address Unknown Phone Unavailable Care Team Providers Care Antenna Rigger Name Role Phone PCP Unavailable Encounter Details Date Type Department Care Team Description 03/21/2017 Prep for Case XDD UROLOGY Abel Poe MD [address] [facility] [address] [place] [address] Social History Tobacco Use Types [...]
--- OUTSIDE RECORDS SUMMARY | 2017-04-30 01:21 | XMS REPORT | Encounter Summary ---
Author Author [facility] Organization [facility] Address Unknown Phone Unavailable Care Team Providers Care Talent Management Specialist Name Role Phone PCP Unavailable Encounter Details Date Type Department Care Team Description 04/10/2017 Procedure Pass Main Operating Room [address] [place], [place] [id number] Social History Tobacco Use Types Packs/Day Years [...]
--- OUTSIDE RECORDS SUMMARY | 2017-04-30 01:21 | XMS REPORT | Encounter Summary ---
Author Author [facility] Organization [facility] Address Unknown Phone Unavailable Care Team Providers Care Gluing Crew Leader Name Role Phone PCP Unavailable Reason for Visit * Reason Comments Navigation Assessment Encounter Details Date Type Department Care Team Description 03/11/2017 Telephone [facility] Abel Poe MD Navigation [facility] [address] [place] [address] [place] [address] [phone] Social History Tobacco Use Types Packs/Day Years [...] Insurance: Medicare/Medicaid Appointment Info: Note 2 appointments: [facility]/[place]: 03/18/17 Dr. Abel Poe Arrive at 12:30 pm registration/ appointment 1;00 pm. PAT at 3:00 pm if required. Diagnosis & Reason for Visit: Left renal mass Physician Info: Referring Physician: Pablo Barker MD Contact Name & Number: [phone] Surgeon: Refer to Urology PCP: Mary Whittington MD PCP Location of Films: PACS Location of Pathology: no pathology History of Present Illness: 31 year old female presented to [facility] ED in [place], [place] on 03/07/17 with right upper quadrant [...]
--- OUTSIDE RECORDS SUMMARY | 2017-04-30 01:21 | XMS REPORT | Encounter Summary ---
Author Author [facility] Organization [facility] Address Unknown Phone Unavailable Care Team Providers Care Program Evaluation Consultant Name Role Phone PCP Unavailable Reason for Visit * Auth/Cert Status Reason Specialty Diagnoses / Referred By Referred To Procedures Contact Contact Diagnoses Renal mass unknown P rocedures NEPHRECTOMY LAPAROSCOPY Encounter Details Date Type Department Care Team Description 04/10/2017 Anesthesia Main Operating Room Toddlou ParvezMONIE [address] [place] [address] Social History Tobacco Use Types [...] injury, allergic reactions, PONV, aspiration, respiratory failure, [place], CVA discussed with patient who reports understanding and consents to anesthetic plan. Araseli Kuhn M.D. ) Informed Consent Anesthetic plan and risks discussed with patient and mother. Use of blood products discussed with patient; consented to blood products. Plan discussed with: anesthesiologist, surgeon/proceduralist, DRY HOUSE TENDER and SRNA. in this encounter Miscellaneous Notes * Addendum Note - Tish Kuhn MD - 04/19/2017 8:53 AM CDT Formatting of this note may be different from the original. Addendum created 04/19/17 0853 by Tish Kuhn MD Anesthesia Attestations filed, Anesthesia Staff edited in this encounter Plan of Treatment Not [...]
--- OUTSIDE RECORDS SUMMARY | 2017-04-30 01:22 | XMS REPORT | Encounter Summary ---
Author Author [facility] Organization [facility] Address Unknown Phone Unavailable Care Team Providers Care Sleeve Turner Name Role Phone PCP Unavailable Encounter Details Date Type Department Care Team Description 03/07/[address] [facility] Encounter Hospital Radiology [address] [place] [address] Social History Tobacco Use Types [...] every 6 hours as needed for Pain. [id number] Take 80,000 Units by 240 Cap 6 [...]
--- OUTSIDE RECORDS SUMMARY | 2017-04-30 01:22 | XMS REPORT | Encounter Summary ---
Author Author [facility] Organization [facility] Address Unknown Phone Unavailable Care Team Providers Care Analytical Lab Technician Name Role Phone PCP Unavailable Encounter Details Date Type Department Care Team Description 03/07/2017 Hospital [facility] Encounter Hospital Radiology [address] [place] [address] Social History Tobacco Use Types [...] every 6 hours as needed for Pain. vpnowk-xrpbomdm-okommhh Take 80,000 Units by 240 Cap 6 [...]
--- OUTSIDE RECORDS SUMMARY | 2017-04-30 01:22 | XMS REPORT | Encounter Summary ---
Author Author [facility] Organization [facility] Address Unknown Phone Unavailable Care Team Providers Care Burglar Alarm Operator Name Role Phone PCP Unavailable Encounter Details Date Type Department Care Team Description 03/07/2017 Hospital [facility] Encounter Hospital Radiology [address] [place] [address] Social History Tobacco Use Types [...] every 6 hours as needed for Pain. fswirb-sleexsgy-rdvfrxj Take 80,000 Units by 240 Cap 6 [...]
--- OUTSIDE RECORDS SUMMARY | 2017-04-30 01:23 | XMS REPORT ---
Author Author CARMEN GIBBS Organization [facility] Address [address] [place] [address] Care Team Providers Care Coal Wheeler Name Role Phone CORTNEY GIBBSHANY Unavailable PROBLEMS Type Condition ICD9-CM Code [id number] Code Onset Dates Condition Status SNOMED Code Problem Chronic pancreatitis K86.1 Active 891390036 Problem Polydipsia R63.1 Active 68546589 Problem Asthma J45.909 Active 116245079 Problem Moderate episode of recurrent major depressive disorder F33.1 Active 085396716 Problem Restless leg syndrome G25.81 Active 74173400 Problem Generalized social phobia F40.11 Active 97269065 Problem Atelectasis J98.11 Active 93506048 Problem Trichotillomania F63.3 Active 99671047 Problem Chronic post-traumatic stress disorder (PTSD) F43.12 Active 260852146 Problem FH: polycystic ovary Z84.2 Active 435929194 Problem Chronic tension-type headache, intractable G44.221 Active 500227435 Problem Left kidney mass N28.89 Active 358802177 Problem Morbid (severe) obesity due to excess calories E66.01 Active 693752676 Problem Hirsuties L68.0 Active 311858464 Problem Hyperlipidemia, mixed E78.2 Active 635512821 ALLERGIES No Information SOCIAL HISTORY Never Assessed [...] vitamin D deficiency Medical History Left kidney mass- tumor Surgical History arthroscopic knee surgery- Dr Figueroa [...] Surgical History Ts & As Hospitalization History Cellulitis-[facility] 12/20/15
--- OUTSIDE RECORDS SUMMARY | 2017-04-30 01:27 | XMS REPORT ---
Author Author CARMEN GIBBS Organization [facility] Address [address] [place] [address] Care Team Providers Care Stack Yield Engineer Name Role Phone CORTNEY GIBBSHANY Unavailable PROBLEMS Type Condition ICD9-CM Code [id number] Code Onset Dates Condition Status SNOMED Code Problem Chronic pancreatitis K86.1 Active 974729049 Problem Polydipsia R63.1 Active 44217209 Problem Asthma J45.909 Active 019688434 Problem Moderate episode of recurrent major depressive disorder F33.1 Active 242838237 Problem Restless leg syndrome G25.81 Active 26441900 Problem Generalized social phobia F40.11 Active 23674480 Problem Atelectasis J98.11 Active 84140333 Problem Trichotillomania F63.3 Active 98133357 Problem Chronic post-traumatic stress disorder (PTSD) F43.12 Active 108553212 Problem FH: polycystic ovary Z84.2 Active 669232083 Problem Chronic tension-type headache, intractable G44.221 Active 294313269 Problem Left kidney mass N28.89 Active 980650782 Problem Morbid (severe) obesity due to excess calories E66.01 Active 422622146 Problem Hirsuties L68.0 Active 585912575 Problem Hyperlipidemia, mixed E78.2 Active 158321274 ALLERGIES No Information SOCIAL HISTORY Never Assessed [...] Surgical History Ts & As Hospitalization History Cellulitis-[facility] 12/20/15
--- OUTSIDE RECORDS SUMMARY | 2017-04-30 01:32 | XMS REPORT ---
Author Author SAI CARMEN Organization [facility] Address [address] [place] [address] Care Team Providers Care Technical Writer And Editor Name Role Phone CARMEN GIBBS Unavailable PROBLEMS Type Condition ICD9-CM Code [id number] Code Onset Dates Condition Status SNOMED Code Problem Chronic pancreatitis K86.1 Active 448868098 Problem Polydipsia R63.1 Active 76284361 Problem Asthma J45.909 Active 546299354 Problem Moderate episode of recurrent major depressive disorder F33.1 Active 798714574 Problem Restless leg syndrome G25.81 Active 45800405 Problem Generalized social phobia F40.11 Active 17460117 Problem Atelectasis J98.11 Active 96694784 Problem Trichotillomania F63.3 Active 40249882 Problem Chronic post-traumatic stress disorder (PTSD) F43.12 Active 473736516 Problem FH: polycystic ovary Z84.2 Active 412762607 Problem Chronic tension-type headache, intractable G44.221 Active 748408575 Problem Left kidney mass N28.89 Active 292941544 Problem Morbid (severe) obesity due to excess calories E66.01 Active 923200659 Problem Hirsuties L68.0 Active 483841062 Problem Hyperlipidemia, mixed E78.2 Active 918404085 ALLERGIES No Information SOCIAL HISTORY Never Assessed PLAN OF CARE VITAL SIGNS MEDICATIONS Unknown Medications RESULTS Name Result Date Reference Range HEPATITIS PROFILE 2016-11-06 Hep A Ab, IgM Negative Negative HBsAg Screen Negative Negative Hep B Core Ab, IgM Negative Negative Hep C Virus Ab <0.1 0.0-0.9 HIV (STATE) 2016-11-06 PROCEDURES Procedure Date Ordered Result Body Site [facility] November 06, 2016 No Charge November 06, 2016 VENIPUNCT, ROUTINE* November 06, 2016 IMMUNIZATIONS No Known Immunizations MEDICAL (GENERAL) [...] History Ts & As Hospitalization History [facility]ul[facility] 12/20/15
[2017-04-30 01:40] LABS: BASOPHILS # (AUTO) 0.1 10^3/uL (0.0-0.1); BASOPHILS % (AUTO) 1 % (0-10); EOSINOPHILS # (AUTO) 0.8 10^3/uL (0.0-0.3); EOSINOPHILS % (AUTO) 10 % (0-10); LYMPHOCYTES # (AUTO) 3.1 X 10^3 (1.0-4.0); LYMPHOCYTES % (AUTO) 35 % (12-44); MEAN CORPUSCULAR HEMOGLOBIN 28 PG (25-34); MEAN CORPUSCULAR HGB CONC 33 G/DL (32-36); MEAN CORPUSCULAR VOLUME 85 FL (80-99); MEAN PLATELET VOLUME 9.1 FL (7.4-10.4); MONOCYTES # (AUTO) 0.4 X 10^3 (0.0-1.0); MONOCYTES % (AUTO) 5 % (0-12); NEUTROPHILS # (AUTO) 4.4 X 10^3 (1.8-7.8); NEUTROPHILS % (AUTO) 50 % (42-75); PLATELET COUNT 310 10^3/uL (130-400); RED BLOOD COUNT 4.33 10^6/uL (4.35-5.85); RED CELL DISTRIBUTION WIDTH 13.4 % (10.0-14.5); WHITE BLOOD COUNT 8.9 10^3/uL (4.3-11.0)
--- OUTSIDE RECORDS SUMMARY | 2017-04-30 01:43 | XMS REPORT ---
Author Author AMY MARTINS Organization [facility] Address [address] [place] [address] Care Team Providers Care Drying Machine Tender Name Role Phone LAKSHMI AMY Unavailable PROBLEMS Type Condition ICD9-CM Code [id number] Code Onset Dates Condition Status SNOMED Code Problem Chronic pancreatitis K86.1 Active 958330797 Problem Polydipsia R63.1 Active 22025705 Problem Asthma J45.909 Active 402921970 Problem Moderate episode of recurrent major depressive disorder F33.1 Active 114833681 Problem Restless leg syndrome G25.81 Active 10908349 Problem Generalized social phobia F40.11 Active 00507654 Problem Atelectasis J98.11 Active 83805674 Problem Trichotillomania F63.3 Active 07900686 Problem Chronic post-traumatic stress disorder (PTSD) F43.12 Active 638076475 Problem FH: polycystic ovary Z84.2 Active 172325013 Problem Chronic tension-type headache, intractable G44.221 Active 893762022 Problem Left kidney mass N28.89 Active 477629620 Problem Morbid (severe) obesity due to excess calories E66.01 Active 377745792 Problem Hirsuties L68.0 Active 861214096 Problem Hyperlipidemia, mixed E78.2 Active 143644821 ALLERGIES Substance Reaction Event Type Date Status Penicillin V Potassium Unknown Drug Allergy October, Active Fentanyl Unknown Drug Allergy October, Active Demerol Unknown Drug Allergy October, Active SOCIAL HISTORY Never Assessed PLAN OF CARE Activity Details Follow Up 2 Months Reason: VITAL SIGNS Height 62 in 2016-10-23 Weight 251.5 lbs 2016-10-23 Heart Rate 84 bpm 2016-10-23 Respiratory Rate 20 2016-10-23 BMI 45.99 kg/m2 2016-10-23 Blood pressure systolic 141 mmHg 2016-10-23 Blood pressure diastolic 62 mmHg 2016-10-23 MEDICATIONS Medication Instructions Dosage Frequency Start Date End Date Duration Status Esoterica Regular 2 % Active Zenpep 06424 UNIT Orally 3 times a day 1 tablet 8h Active Nac 600 600 MG Orally Once with evening meal for hair pulling 1 capsule October, Active Ondansetron HCl 8 mg 1 tablet by Oral route every 8 hours PRN Jul, Active Ropinirole HCl 4 MG Orally Once at bedtime 1 tablet Active Estradiol 0.5 MG Orally Once a day 2 tablet by Oral route 1 time per day 24h Apr, Active Doxycycline Hyclate 100 MG Orally every 12 hrs 1 capsule 12h Active Mupirocin 2 % Externally Three times a day 1 application to affected area 8h Active Benadryl 25 MG Orally at bedtime as needed for sleep 1-2 capsule as needed Active Prozac 20 mg Orally Once at bedtime 3 capsules Active Ibuprofen 800 MG Orally Three times a day take 1 tablet (800 mg) by oral route 3 times per day with food 8h Mar, 30 days Active RESULTS No Results PROCEDURES Procedure Date Ordered Result Body Site [facility] VISIT ESTABLISHED PATIENT October 23, 2016 IMMUNIZATIONS No Known Immunizations MEDICAL (GENERAL) [...] History Ts & As Hospitalization History Cellulitis-[facility] 12/20/15
--- NOTE | 2017-04-30 01:58 | ED Abdominal Pain ---
General Chief Complaint: Abdominal/GI Problems Stated Complaint: LOWER ABD PAIN Source of Information: Patient, Old Records History of Present Illness Time Seen By Provider: 01:20 Initial Comments PT ARRIVES VIA POV FROM HOME PT HAD LEFT NEPHRECTOMY AT 3 WEEKS AGO PT STATES SHE HAS HAD CONSTANT PAIN IN LEFT LOWER ABDOMEN SINCE SURGERY--HAS NOT ATTEMPTED TO FOLLOW UP WITH SURGEON OR HER PCP/ BOB-BETTE AT ANY TIME FOR THIS PROBLEM STATES PAIN IS A "PULLING AND BURNING PAIN" PT SEEN HERE 04/13 AND 04/17 FOR THIS SAME COMPLAINT--WORK-UP'S NEGATIVE PT STATES WAS TOLD THE TUMOR ON HER KIDNEY WAS CANCER "BUT THEY GOT IT ALL" -- WAS NOT REFERRED TO ONCOLOGY HAS POST-OP APPOINTMENT IN 2 WEEKS PT C/O NAUSEA, NO VOMITING. EATING AND DRINKING NORMALLY--ATE DINNER AT 1730-- POTATO SOUP NO FEVER NO URINARY SYMPTOMS HAVING NORMAL BM'S-LAST BM WAS YESTERDAY 04/29/17. NO BLACK/BLOODY/TARRY STOOLS HAS TAKEN A SINGLE DOSE OF TYLENOL AT 2200 TONIGHT, OTHERWISE HAS NOT TAKEN ANYTHING ELSE FOR PAIN SYMPTOMS ARE NOT ANY DIFFERENT TONIGHT. PT WITH MULTITUDE OF VISITS HERE--12 IN 2017--MOST ARE VARIOUS PAIN-RELATED COMPLAINTS PCP: MARSHA, DR. GIBBS Allergies and Home Medications Allergies Coded Allergies: meperidine (Verified Allergy, Unknown, 05/23/16) penicillin G (Verified Allergy, Unknown, 05/23/16) Home Medications Diazepam 5 Mg Tablet, 5 MG PO Q6H PRN for SPASMS, #10 Ref 0 Prescribed by: KIARA CALVERT on 04/18/17 0029 Diphenhydramine HCl 25 Mg Capsule, 25-50 MG PO Q6H PRN for ALLERGIES, (Reported) Estradiol 2 Mg Tablet, 3 MG PO HS, (Reported) TAKES 1 & 1/2 (2MG) TABLETS Fluoxetine HCl 20 Mg Capsule, 60 MG PO HS, (Reported) TAKES 3 (20MG) CAPSULES Hydrocodone/Acetaminophen 1 Each Tablet, 1 EACH PO Q6H PRN for PAIN, #20 Prescribed by: IZABELA MAC on 03/07/17 1221 Hydrocodone/Acetaminophen 1 Each Tablet, 1 EACH PO Q6H, #20 Ref 0 Prescribed by: YUKI MARCH on 03/14/17 0619 Ibuprofen 800 Mg Tablet, 800 MG PO Q8H PRN for PAIN, (Reported) Mupirocin 22 Gm Oint...g., 22 GM TP BID for 7 Days, #1 Ref 0 Prescribed by: MAKAYLA HAWKINS on 02/21/1701 Polyethylene Glycol 3350 17 Gm Powd.pack, (Reported) Ropinirole HCl 2 Mg Tablet, 2 MG PO HS, (Reported) Sulfamethoxazole/Trimethoprim 1 Each Tablet, 1 EACH PO BID for 10 Days, #20 Ref 0 Prescribed by: MAKAYLA HAWKINS on 02/21/17 0701 Tramadol HCl 50 Mg Tablet, (Reported) Review of Systems Constitutional: no symptoms reported Respiratory: No Symptoms Reported Cardiovascular: No Symptoms Reported Gastrointestinal: See HPI, Abdominal Pain, Denies Constipated, Denies Diarrhea , Nausea, Denies Poor Appetite, Denies Poor Fluid Intake, Denies Rectal Bleeding , Denies Vomiting Genitourinary: No Symptoms Reported Musculoskeletal: no symptoms reported Skin: no symptoms reported Psychiatric/Neurological: No Symptoms Reported Endocrine: No Symptoms Reported Hematologic/Lymphatic: No Symptoms Reported Past Hkuyvma-Qdnanp-Aibtkw Hx Patient Social History 2nd Hand Smoke Exposure: No Recent Foreign Travel: No Contact w/Someone Who Travel: No Recent Hopitalizations: No Immunizations Up To Date Tetanus Booster (TDap): Unknown Date of Pneumonia Vaccine: May 17, 2012 Date of Influenza Vaccine: Jul 03, 2012 Seasonal Allergies Seasonal Allergies: Yes (MILD) Surgeries History of Surgeries: Yes (R KNEE SCOPE X4 LEFT KNEE X2, NASAL FX, EGD/ COLONOSCOPY, COCCYX REMOVAL, LEFT NEPHRECTOMY 04/10/2017 AT ; REMOVAL OF SUBMENTAL NODULE) Surgeries: Abdominal, Adenoidectomy, Appendectomy, Gallbladder, 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, Nephrectomy, Orthopedic, Tonsillectomy Respiratory History of Respiratory Disorde: Yes (HASNT USED INHALER IN > 4 YRS) Respiratory Disorders: Asthma Currently Using CPAP: No Currently Using BIPAP: No Cardiovascular History of Cardiac Disorders: No Neurological History of Neurological Disord: Yes (RESTLESS LEG SYNDROME) Neurological Disorders: Headaches /Migraines 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 System Hx 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: Yes (HX ENDOMETRIOSIS ) Sexually Transmitted Disease: No HIV/AIDS: No 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, 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 ANY COMMODITY SALES DELIVERER History: 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 Genitourinary History of Genitourinary Disor: Yes (L KIDNEY REMOVED FOR TUMOR; FATTY LIVER/ ENLARGED LIVER) Genitourinary Disorders: UTI-Chronic Gastrointestinal History of Gastrointestinal Di: Yes (ENLARGED LIVER) Gastrointestinal Disorders: Pancreatitis, Polyps Musculoskeletal History of Musculoskeletal Dis: Yes (COCCYX-REPAIRED, MAY HAVE SIGNS OF ARTHRITIS) Musculoskeletal Disorders: Chronic Back Pain Endocrine History of Endocrine Disorders: No HEENT History of HEENT Disorders: No Loss of Vision: Denies Hearing Impairment: Denies Cancer History of Cancer: No Psychosocial History of Psychiatric Problem: Yes Behavioral Health Disorders: Anxiety, Depression Integumentary History of Skin or Integumenta: Yes Skin/Integumentary Disorders: Herpes Blood Transfusions History of Blood Disorders: No Adverse Reaction to a Blood Tr: No Family Medical History Significant Family History: Cancer, Diabetes, Hypertension Family Medial History: Cardiovascular disease 19 FATHER Completed stroke 19 FATHER Diabetes mellitus 19 FATHER Hypercholesterolemia 19 FATHER 19 MOTHER Hypertension 19 FATHER 19 MOTHER Neoplasm 19 MOTHER Psychosocial problem 19 FATHER 19 MOTHER Physical Exam Vital Signs VS - Last 72 Hours, by Label 04/30/17 01:16 Temp 96.9 Pulse 80 Resp 18 B/P (MAP) 122/72 Pulse Ox 97 O2 Delivery Room Air Capillary Refill : General Appearance: no apparent distress, obese, other (WALKS UPRIGHT AND MOVES WITHOUT DIFFICULTY. DOES NOT APPEAR TO BE IN ANY DISCOMFORT) HEENT: PERRL/EOMI Neck: normal inspection Respiratory: normal breath sounds, no respiratory distress, no accessory muscle use Cardiovascular: regular rate, rhythm, no murmur Gastrointestinal: normal bowel sounds, soft, no organomegaly, no pulsatile mass , No distended, No guarding, No rebound, tenderness (LEFT LOWER/MID ABDOMEN), No hernia, No mass, other (INCISIONS TO LEFT MID ABDOMEN ALL ARE HEALING WELL WITH SCABS FALLING OFF. NO SIGNIFICANT TENDERNESS, INDURATION OR SIGNS OF INFECTION. ) Extremities: normal inspection, no pedal edema Back: no CVA tenderness Neurologic/Psychiatric: agency director II-XII nml as tested, no motor/sensory deficits, alert, oriented x 3 Skin: normal color, warm/dry Progress/Results/Core Measures Results/Orders Lab Results Laboratory Tests Test 04/30/17 01:34 04/30/17 02:13 Range/Units White Blood Count 8.9 4.3-11.0 10^3/uL Red Blood Count 4.33 L 4.35-5.85 10^6/uL Hemoglobin 12.1 11.5-16.0 G/DL Hematocrit 37 35-52 % Mean Corpuscular Volume 85 80-99 FL Mean Corpuscular Hemoglobin 28 25-34 PG Mean Corpuscular Hemoglobin Concent 33 32-36 G/DL Red Cell Distribution Width 13.4 10.0-14.5 % Platelet Count 310 130-400 10^3/uL Mean Platelet Volume 9.1 7.4-10.4 FL Neutrophils (%) (Auto) 50 42-75 % Lymphocytes (%) (Auto) 35 12-44 % Monocytes (%) (Auto) 5 0-12 % Eosinophils (%) (Auto) 10 0-10 % Basophils (%) (Auto) 1 0-10 % Neutrophils # (Auto) 4.4 1.8-7.8 X 10^3 Lymphocytes # (Auto) 3.1 1.0-4.0 X 10^3 Monocytes # (Auto) 0.4 0.0-1.0 X 10^3 Eosinophils # (Auto) 0.8 H 0.0-0.3 10^3/uL Basophils # (Auto) 0.1 0.0-0.1 10^3/uL Sodium Level 140 135-145 MMOL/L Potassium Level 4.1 3.6-5.0 MMOL/L Chloride Level 104 98-107 MMOL/L Carbon Dioxide Level 26 21-32 MMOL/L Anion Gap 10 5-14 MMOL/L Blood Urea Nitrogen 13 7-18 MG/DL Creatinine 0.96 0.60-1.30 MG/DL Estimat Glomerular Filtration Rate > 60 BUN/Creatinine Ratio 14 Glucose Level 96 70-105 MG/DL Calcium Level 8.9 8.5-10.1 MG/DL Total Bilirubin 0.3 0.1-1.0 MG/DL Aspartate Amino Transf (AST/SGOT) 31 5-34 U/L Alanine Aminotransferase (ALT/SGPT) 24 0-55 U/L Alkaline Phosphatase 60 40-136 U/L Total Protein 7.0 6.4-8.2 GM/DL Albumin 3.8 3.2-4.5 GM/DL Urine Color YELLOW Urine Clarity CLEAR Urine pH 7 5-9 Urine Specific [place] 1.010 L 1.016-1.022 Urine Protein NEGATIVE NEGATIVE Urine Glucose (UA) NEGATIVE NEGATIVE Urine Ketones NEGATIVE NEGATIVE Urine Nitrite NEGATIVE NEGATIVE Urine Bilirubin NEGATIVE NEGATIVE Urine Urobilinogen NORMAL NORMAL MG/DL Urine Leukocyte Esterase NEGATIVE NEGATIVE Urine RBC (Auto) NEGATIVE NEGATIVE Urine RBC NONE /HPF Urine WBC NONE /HPF Urine Squamous Epithelial Cells 2-5 /HPF Urine Crystals NONE /LPF Urine Bacteria TRACE /HPF Urine Casts NONE /LPF Urine Mucus NEGATIVE /LPF Urine Culture Indicated NO Urine Opiates Screen NEGATIVE NEGATIVE Urine Oxycodone Screen NEGATIVE NEGATIVE Urine Methadone Screen NEGATIVE NEGATIVE Urine Propoxyphene Screen NEGATIVE NEGATIVE Urine Barbiturates Screen NEGATIVE NEGATIVE Ur Tricyclic Antidepressants Screen NEGATIVE NEGATIVE Urine Phencyclidine Screen NEGATIVE NEGATIVE Urine Amphetamines Screen NEGATIVE NEGATIVE Urine Methamphetamines Screen NEGATIVE NEGATIVE Urine Benzodiazepines Screen POSITIVE H NEGATIVE Urine Cocaine Screen NEGATIVE NEGATIVE Urine Cannabinoids Screen NEGATIVE NEGATIVE My Orders Orders - YAN CHAPARRO DO Cbc With Automated Diff (04/30/17 01:22) Comprehensive Metabolic Panel (04/30/17 01:22) Drug Screen Stat (Urine) (04/30/17 01:22) Ua Culture If Indicated (04/30/17 01:22) Ct Abd/Pelvis Wo(Kidney Stone) (04/30/17 01:22) Ketorolac Injection (Toradol Injection) (04/30/17 02:33) Ondansetron Injection (Zofran Injectio (04/30/17 02:45) Medications Given in ED Current Medications Medications Dose Ordered Sig/Neal Route Start Time Stop Time Status Last Admin Dose Admin Ondansetron HCl 4 mg ONCE ONCE IVP 04/30/17 02:45 04/30/17 02:46 UNV 04/30/17 02:58 4 MG Vital Signs/I&O Vital Sign - Last 12Hours 04/30/17 01:16 Temp 96.9 Pulse 80 Resp 18 B/P (MAP) 122/72 Pulse Ox 97 O2 Delivery Room Air Progress Note : Progress Note UNEVENTFUL ER STAY Diagnostic Imaging Comments CT ABDOMEN/PELVIS--NO ACUTE PROCESS, NORMAL / IMPROVING POST OP CHANGES--PER [facility] VIA FAX @ [phone] Reviewed: Reviewed by Me Departure Impression Impression: Primary Impression: Post-operative pain Additional Impression: Abdominal wall pain Disposition: 01 HOME, SELF-CARE Condition: Stable Departure-Patient Inst. Referrals: CARMEN GIBBS MD (PCP/Family) Primary Care Physician Patient Instructions: Managing Pain After Surgery Add. Discharge Instructions: CONTINUE YOUR MEDICATIONS PRESCRIBED TYLENOL AND MOTRIN NEEDED FOR PAIN FOLLOW UP WITH YOUR SURGEON SCHEDULED, OR SOONER IF SYMPTOMS WORSEN FOLLOW UP WITH [facility] THIS WEEK FOR FURTHER CARE All discharge instructions reviewed with patient and/or family. Voiced understanding. Images Torso/Trunk 1 - Tenderness YAN CHAPARRO DO Apr 30, 2017 01:58
[2017-04-30 02:10] LABS: ALANINE AMINOTRANSFERASE 24 U/L (0-55); ALBUMIN 3.8 GM/DL (3.2-4.5); ANION GAP 10 MMOL/L (5-14); ASPARTATE AMINO TRANSFERASE 31 U/L (5-34); BILIRUBIN,TOTAL 0.3 MG/DL (0.1-1.0); BLOOD UREA NITROGEN 13 MG/DL (7-18); BUN/CREATININE RATIO 14; CALCIUM 8.9 MG/DL (8.5-10.1); CARBON DIOXIDE 26 MMOL/L (21-32); CHLORIDE 104 MMOL/L (98-107); CREATININE SERUM 0.96 MG/DL (0.60-1.30); GFR ESTIMATED > 60; GLUCOSE 96 MG/DL (70-105); POTASSIUM 4.1 MMOL/L (3.6-5.0); SODIUM 140 MMOL/L (135-145)
[2017-04-30 02:21] LABS: BILIRUBIN,URINE NEGATIVE (NEGATIVE); KETONES,URINE NEGATIVE (NEGATIVE); LEUKOCYTE ESTERASE ,URINE NEGATIVE (NEGATIVE); NITRITE,URINE NEGATIVE (NEGATIVE); PH,URINE 7 (5-9); PROTEIN,URINE NEGATIVE (NEGATIVE); UROBILINOGEN,URINE NORMAL (NORMAL)
[2017-04-30] MEDS ORDERED: KETOROLAC 30 MG/ML VIAL IVP STA (02:33)
[2017-04-30] MEDS ORDERED: ONDANSETRON 4 MG/2 ML (SDV) Z0FRAN IVP ONE (02:45)
[2017-04-30 03:16] VITALS: BP 117/79
--- NOTE | 2017-04-30 06:56 | Diagnostic Imaging Report ---
PROCEDURE: CT urinary tract, rule out kidney stone. TECHNIQUE: Multiple contiguous axial images were obtained through the abdomen and pelvis without the use of intravenous contrast. INDICATION: Left lower quadrant pain. Status post left nephrectomy. COMPARISON: 04/17/2017. FINDINGS: Evaluation of the abdominal viscera is mildly limited without contrast. Lower chest: The lung bases are clear. No pericardial or pleural effusion. Peritoneum: No free intraperitoneal air. Liver and biliary system: Unenhanced liver is normal. Status post cholecystectomy. No biliary duct dilatation. Spleen and Pancreas: Spleen is normal. Unenhanced pancreas is grossly normal. Adrenals: Normal. tract: Status post left nephrectomy. Resolving nonloculated fluid within the nephrectomy bed. No abnormal soft tissue within the surgical bed. Right kidney is normal in size. No right-sided renal or ureteral calculi. Urinary bladder is decompressed, limiting evaluation. Uterus is surgically absent. GI tract: Stomach is partially distended with fluid and food debris and there is no wall thickening. No bowel obstruction. No pericolonic inflammatory changes. Status post appendectomy. Vasculature and Lymph nodes: Normal caliber aorta. No abdominal or pelvic lymphadenopathy. Musculoskeletal: No concerning osseous lesion. IMPRESSION: 1. No acute inflammatory or obstructive process in the abdomen or pelvis. 2. Status post left nephrectomy with resolving postoperative fluid in the surgical bed. No loculated fluid collections to indicate abscess. 3. Findings are in agreement with the preliminary report. Dictated by: Dictated on workstation # [id number]
== END 2017-04-30 03:16 | disposition home or self-care (01) ==
LOC: EDUNIT# 01:08 → ER 01:09
DX: R10.32 Left lower quadrant pain (principal); G89.18 Other acute postprocedural pain; J45.909 Unspecified asthma, uncomplicated; G43.909 Migraine, unspecified, not intractable, without status migrainosus; F41.9 Anxiety disorder, unspecified; F32.9 Major depressive disorder, single episode, unspecified; Z86.19 Personal history of other infectious and parasitic diseases; Z82.49 Family history of ischemic heart disease and other diseases of the circulatory system; Z87.440 Personal history of urinary (tract) infections; Z87.19 Personal history of other diseases of the digestive system; Z86.010 Personal history of colon polyps; Z90.5 Acquired absence of kidney; Z90.89 Acquired absence of other organs; Z90.49 Acquired absence of other specified parts of digestive tract; Z90.710 Acquired absence of both cervix and uterus
CPT/HCPCS: 36415; 74176; 80053; 80306; 81000; 85025

== ENCOUNTER 2017-05-30 13:41 | Emergency (ER) | payer MEDICARE, MEDICAID ==
[~2017-05-30] VITALS: Ht 160 cm; Wt 102.3 kg
--- NOTE | 2017-05-30 14:14 | ED GU-Female ---
General Chief Complaint: -Female Stated Complaint: CANNOT URINATE Source: patient Exam Limitations: no limitations History of Present Illness Time seen by provider: 14:13 Initial Comments to ER with reports of a sensation of needing to urinate but only being able to go a few drops of time. No fevers or chills. She does report reduced appetite. The symptoms began 2 days ago. Few months ago she did have a left nephrectomy for renal cell carcinoma. Timing/Duration: yesterday, getting worse Severity/Quality: moderate Location: LLQ Radiation: none Activities at Onset: eating Prior Genitourinary Problems: none Associated Symptoms: dysuria, No fever/chills, No lower back pain, No nausea/ vomiting, urinary frequency Allergies and Home Medications Allergies Coded Allergies: meperidine (Verified Allergy, Unknown, 05/23/16) penicillin G (Verified Allergy, Unknown, 05/23/16) Home Medications Diazepam 5 Mg Tablet, 5 MG PO Q6H PRN for SPASMS, #10 Ref 0 Prescribed by: KIARA CALVERT on 04/18/17 0029 Diphenhydramine HCl 25 Mg Capsule, 25-50 MG PO Q6H PRN for ALLERGIES, (Reported) Estradiol 2 Mg Tablet, 3 MG PO HS, (Reported) TAKES 1 & 1/2 (2MG) TABLETS Fluoxetine HCl 20 Mg Capsule, 60 MG PO HS, (Reported) TAKES 3 (20MG) CAPSULES Hydrocodone/Acetaminophen 1 Each Tablet, 1 EACH PO Q6H PRN for PAIN, #20 Prescribed by: IZABELA MAC on 03/07/17 1221 Hydrocodone/Acetaminophen 1 Each Tablet, 1 EACH PO Q6H, #20 Ref 0 Prescribed by: YUKI MARCH on 03/14/17 0619 Ibuprofen 800 Mg Tablet, 800 MG PO Q8H PRN for PAIN, (Reported) Mupirocin 22 Gm Oint...g., 22 GM TP BID for 7 Days, #1 Ref 0 Prescribed by: MAKAYLA HAWKINS on 02/21/17 0701 Polyethylene Glycol 3350 17 Gm Powd.pack, (Reported) Ropinirole HCl 2 Mg Tablet, 2 MG PO HS, (Reported) Sulfamethoxazole/Trimethoprim 1 Each Tablet, 1 EACH PO BID for 10 Days, #20 Ref 0 Prescribed by: MAKAYLA HAWKINS on 02/21/17 0701 Tramadol HCl 50 Mg Tablet, (Reported) Constitutional: see HPI EENTM: see HPI Respiratory: no symptoms reported Cardiovascular: no symptoms reported Genitourinary: no symptoms reported Musculoskeletal: no symptoms reported Skin: no symptoms reported Psychiatric/Neurological: No Symptoms Reported Endocrine: No Symptoms Reported Past Bdijtrx-Lhlgac-Bxdfft Hx Patient Social History 2nd Hand Smoke Exposure: No Recent Foreign Travel: No Contact w/Someone Who Travel: No Recent Hopitalizations: No Immunizations Up To Date Tetanus Booster (TDap): Unknown Date of Pneumonia Vaccine: May 17, 2012 Date of Influenza Vaccine: Jul 03, 2012 Seasonal Allergies Seasonal Allergies: Yes (MILD) Surgeries History of Surgeries: Yes Surgeries: Abdominal, Adenoidectomy, Appendectomy, Gallbladder, 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, Nephrectomy, Orthopedic, Tonsillectomy Respiratory History of Respiratory Disorde: Yes (HASNT USED INHALER IN > 4 YRS) Respiratory Disorders: Asthma Currently Using CPAP: No Currently Using BIPAP: No Cardiovascular History of Cardiac Disorders: No Neurological History of Neurological Disord: Yes (RESTLESS LEG SYNDROME) Neurological Disorders: Headaches /Migraines 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 System Hx 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: Yes (HX ENDOMETRIOSIS ) Sexually Transmitted Disease: No HIV/AIDS: No 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, 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 Genitourinary History of Genitourinary Disor: Yes (L KIDNEY REMOVED FOR TUMOR; FATTY LIVER/ ENLARGED LIVER) Genitourinary Disorders: UTI-Chronic Gastrointestinal History of Gastrointestinal Di: Yes (ENLARGED LIVER) Gastrointestinal Disorders: Pancreatitis, Polyps Musculoskeletal History of Musculoskeletal Dis: Yes (COCCYX-REPAIRED, MAY HAVE SIGNS OF ARTHRITIS) Musculoskeletal Disorders: Chronic Back Pain Endocrine History of Endocrine Disorders: No HEENT History of HEENT Disorders: No Loss of Vision: Denies Hearing Impairment: Denies Cancer History of Cancer: No Psychosocial History of Psychiatric Problem: Yes Behavioral Health Disorders: Anxiety, Depression Integumentary History of Skin or Integumenta: Yes Skin/Integumentary Disorders: Herpes Blood Transfusions History of Blood Disorders: No Adverse Reaction to a Blood Tr: No Family Medical History Significant Family History: Cancer, Diabetes, Hypertension Family Medial History: Cardiovascular disease 19 FATHER Completed stroke 19 FATHER Diabetes mellitus 19 FATHER Hypercholesterolemia 19 FATHER 19 MOTHER Hypertension 19 FATHER 19 MOTHER Neoplasm 19 MOTHER Psychosocial problem 19 FATHER 19 MOTHER Physical Exam Vital Signs Vital Sign - Last 12Hours 05/30/17 14:13 Temp 98.3 Pulse 78 Resp 20 B/P (MAP) 135/72 (93) Pulse Ox 97 O2 Delivery Room Air Capillary Refill : General Appearance: WD/WN, no apparent distress HEENT: PERRL/EOMI, normal ENT inspection Neck: non-tender, full range of motion Respiratory: normal breath sounds, no respiratory distress, no accessory muscle use Gastrointestinal: normal bowel sounds, non tender, soft Neurologic/Psychiatric: alert, normal mood/affect, oriented x 3 Skin: normal color, warm/dry Progress/Results/Core Measures Suspected Sepsis SIRS Temperature: Pulse: Respiratory Rate: Laboratory Tests 05/30/17 14:20: White Blood Count 10.1 Blood Pressure / Mean: Laboratory Tests 05/30/17 14:20: Creatinine 0.84, Platelet Count 303 Results/Orders Lab Results Laboratory Tests Test 05/30/17 14:20 Range/Units White Blood Count 10.1 4.3-11.0 10^3/uL Red Blood Count 4.32 L 4.35-5.85 10^6/uL Hemoglobin 12.3 11.5-16.0 G/DL Hematocrit 37 35-52 % Mean Corpuscular Volume 85 80-99 FL Mean Corpuscular Hemoglobin 29 25-34 PG Mean Corpuscular Hemoglobin Concent 34 32-36 G/DL Red Cell Distribution Width 13.4 10.0-14.5 % Platelet Count 303 130-400 10^3/uL Mean Platelet Volume 9.3 7.4-10.4 FL Neutrophils (%) (Auto) 67 42-75 % Lymphocytes (%) (Auto) 26 12-44 % Monocytes (%) (Auto) 4 0-12 % Eosinophils (%) (Auto) 4 0-10 % Basophils (%) (Auto) 0 0-10 % Neutrophils # (Auto) 6.7 1.8-7.8 X 10^3 Lymphocytes # (Auto) 2.6 1.0-4.0 X 10^3 Monocytes # (Auto) 0.4 0.0-1.0 X 10^3 Eosinophils # (Auto) 0.4 H 0.0-0.3 10^3/uL Basophils # (Auto) 0.0 0.0-0.1 10^3/uL Urine Color YELLOW Urine Clarity VERY CLOUDY H Urine pH 5 5-9 Urine Specific [place] 1.020 1.016-1.022 Urine Protein NEGATIVE NEGATIVE Urine Glucose (UA) NEGATIVE NEGATIVE Urine Ketones NEGATIVE NEGATIVE Urine Nitrite NEGATIVE NEGATIVE Urine Bilirubin NEGATIVE NEGATIVE Urine Urobilinogen NORMAL NORMAL MG/DL Urine Leukocyte Esterase NEGATIVE NEGATIVE Urine RBC (Auto) NEGATIVE NEGATIVE Urine RBC NONE /HPF Urine WBC 5-10 H /HPF Urine Squamous Epithelial Cells 25-50 H /HPF Urine Crystals NONE /LPF Urine Bacteria MODERATE H /HPF Urine Casts NONE /LPF Urine Mucus NEGATIVE /LPF Urine Culture Indicated YES Sodium Level 139 135-145 MMOL/L Potassium Level 3.6 3.6-5.0 MMOL/L Chloride Level 104 98-107 MMOL/L Carbon Dioxide Level 27 21-32 MMOL/L Anion Gap 8 5-14 MMOL/L Blood Urea Nitrogen 13 7-18 MG/DL Creatinine 0.84 0.60-1.30 MG/DL Estimat Glomerular Filtration Rate > 60 BUN/Creatinine Ratio 15 Glucose Level 120 H 70-105 MG/DL Calcium Level 9.1 8.5-10.1 MG/DL Lipase 34 8-78 U/L My Orders Orders - GEORGES FINN APRN Cbc With Automated Diff (05/30/17 14:12) Basic Metabolic Panel (05/30/17 14:12) Urine Bedside (05/30/17 14:12) Lipase (05/30/17 14:21) Vital Signs/I&O Vital Sign - Last 12Hours 05/30/17 14:13 Temp 98.3 Pulse 78 Resp 20 B/P (MAP) 135/72 (93) Pulse Ox 97 O2 Delivery Room Air Capillary Refill : Departure Impression Impression: Primary Impression: Urinary tract infectious disease Disposition: 01 HOME, SELF-CARE Condition: Stable Departure-Patient Inst. Decision time for Depature: 14:51 Referrals: CARMEN GIBBS MD (PCP/Family) Primary Care Physician Patient Instructions: Urinary Tract Infection, Adult (DC) Add. Discharge Instructions: 1. Take antibiotics as directed. Scripts Sulfamethoxazole/Trimethoprim (Bactrim Ds Tablet) 1 Each Tablet 1 EACH PO BID, #6 TAB Prov: GEORGES FINN APRN 05/30/17 GEORGES FINN APRN May 30, 2017 14:14
[2017-05-30 14:27] LABS: BILIRUBIN,URINE NEGATIVE (NEGATIVE); KETONES,URINE NEGATIVE (NEGATIVE); LEUKOCYTE ESTERASE ,URINE NEGATIVE (NEGATIVE); NITRITE,URINE NEGATIVE (NEGATIVE); PH,URINE 5 (5-9); PROTEIN,URINE NEGATIVE (NEGATIVE); UROBILINOGEN,URINE NORMAL (NORMAL)
[2017-05-30 14:28] LABS: BASOPHILS % (AUTO) 0 % (0-10); EOSINOPHILS # (AUTO) 0.4 10^3/uL (0.0-0.3); EOSINOPHILS % (AUTO) 4 % (0-10); LYMPHOCYTES # (AUTO) 2.6 X 10^3 (1.0-4.0); LYMPHOCYTES % (AUTO) 26 % (12-44); MEAN CORPUSCULAR HEMOGLOBIN 29 PG (25-34); MEAN CORPUSCULAR HGB CONC 34 G/DL (32-36); MEAN CORPUSCULAR VOLUME 85 FL (80-99); MEAN PLATELET VOLUME 9.3 FL (7.4-10.4); MONOCYTES # (AUTO) 0.4 X 10^3 (0.0-1.0); MONOCYTES % (AUTO) 4 % (0-12); NEUTROPHILS # (AUTO) 6.7 X 10^3 (1.8-7.8); NEUTROPHILS % (AUTO) 67 % (42-75); PLATELET COUNT 303 10^3/uL (130-400); RED BLOOD COUNT 4.32 10^6/uL (4.35-5.85); RED CELL DISTRIBUTION WIDTH 13.4 % (10.0-14.5); WHITE BLOOD COUNT 10.1 10^3/uL (4.3-11.0)
[2017-05-30 14:46] LABS: ANION GAP 8 MMOL/L (5-14); BLOOD UREA NITROGEN 13 MG/DL (7-18); BUN/CREATININE RATIO 15; CALCIUM 9.1 MG/DL (8.5-10.1); CARBON DIOXIDE 27 MMOL/L (21-32); CHLORIDE 104 MMOL/L (98-107); CREATININE SERUM 0.84 MG/DL (0.60-1.30); GFR ESTIMATED > 60; GLUCOSE 120 MG/DL (70-105); LIPASE 34 U/L (8-78); POTASSIUM 3.6 MMOL/L (3.6-5.0); SODIUM 139 MMOL/L (135-145)
[2017-05-30 14:49] LABS: SQUAMOUS EPITHELIAL CELL,UR 25-50 /HPF
[2017-05-30] MEDS ORDERED: SULF1TAB35 PO (14:53)
[2017-05-30 15:03] VITALS: BP 135/72
== END 2017-05-30 15:03 | disposition home or self-care (01) ==
LOC: EDUNIT# 13:41 → ER 13:43
DX: N39.0 Urinary tract infection, site not specified (principal); J45.909 Unspecified asthma, uncomplicated; F41.9 Anxiety disorder, unspecified; F32.9 Major depressive disorder, single episode, unspecified; G43.909 Migraine, unspecified, not intractable, without status migrainosus; Z87.440 Personal history of urinary (tract) infections; Z86.010 Personal history of colon polyps; Z82.49 Family history of ischemic heart disease and other diseases of the circulatory system; Z87.19 Personal history of other diseases of the digestive system; Z90.49 Acquired absence of other specified parts of digestive tract; Z90.710 Acquired absence of both cervix and uterus; Z90.89 Acquired absence of other organs; Z90.5 Acquired absence of kidney
CPT/HCPCS: 36415; 80048; 81000; 83690; 85025; 87088; 99283

== ENCOUNTER 2017-06-28 10:00 | Outpatient (CLI) | payer MEDICARE, MEDICAID ==
[~2017-06-28] VITALS: Ht 160 cm; Wt 102.1 kg
[~2017-06-28 10:00] MED LIST changes: -HYDR-3812 PO
[2017-06-28] MEDS ORDERED: FLUO40CA PO (10:10)
[2017-06-28] MEDS ORDERED: FERR-84 PO (10:10)
[2017-06-28] MEDS ORDERED: CHOL200014 PO (10:10)
[2017-06-28] MEDS ORDERED: ROPI4TAB3 PO (10:10)
== END 2017-06-28 10:11 ==
LOC: PREOP 10:00
PROVIDERS: ATTEND Surgery
DX: Z01.818 Encounter for other preprocedural examination (principal); Z12.11 Encounter for screening for malignant neoplasm of colon; Z86.010 Personal history of colon polyps

== ENCOUNTER 2017-06-29 18:40 | Emergency (ER) | payer MEDICARE, MEDICAID ==
[~2017-06-29] VITALS: Ht 157.5 cm; Wt 111.1 kg
[~2017-06-29 18:40] MED LIST changes: +CHOL200014 PO; +FERR-84 PO; +ROPI4TAB3 PO
--- OUTSIDE RECORDS SUMMARY | 2017-06-29 18:45 | XMS REPORT | Continuity of Care Document ---
Author Author [employer] Organization [facility] Address Unknown Phone Unavailable Care Team Providers Care Launderer Hand Name Role Phone [employer] Unavailable Unavailable Problems Medications Allergies, Adverse Reactions, Alerts Immunizations Results Vital Signs Encounters Location Location Details Encounter Type Encounter Number Reason For Visit Attending Provider ADM Date DC Date Status Source OUTPATIENT [id number] RAQUEL BARGER 07/15/20132013 Active [facility] [place] SER[facility] [id number] [facility] 03/18/2017 03/18/2017 Active [facility] EXT RECOVERY [id number] [facility] 04/10/2017 04/11/2017 Active [facility] [place] SERIES [id number] [facility] 05/06/2017 05/06/2017 Active [facility] OUTPATIENT [id number] RAQUEL BARGER 06/03/20172016 Active [facility] SPECIMEN [id number] TYESHA GUZMAN 06/18/2017 06/18/2017 Active [facility] Christa QUINTANILLA Active [facility] Procedures Plan of Care Social History Assessment and Plan Family History Advance Directives Functional Status
--- OUTSIDE RECORDS SUMMARY | 2017-06-29 18:46 | XMS REPORT | Clinical Summary ---
Author Author [facility] Organization [facility] Address Unknown Phone Unavailable Care Team Providers Care Traffic Coordinator Name Role Phone PCP Unavailable Source Comments Some departments are not documenting in the electronic medical record. If you do not see the information that you expected, contact Release of Information in the Health Information Management department at [phone] for further assistance in locating additional records.[facility] Allergies Active Allergy Reactions Severity Noted Date Comments Penicillins UNKNOWN 09/20/2011 Meperidine (Pf) ITCHING Low 09/20/2011 Fentanyl ITCHING Low 09/20/2011 Current Medications Prescription Sig. Disp. Refills Start End Date Status Date estradiol (ESTRACE) 2 mg Take 3 mg by mouth at Active tablet bedtime [...] 17 g daily. Indications: 17 packetIndications: CONSTIPATION constipation senna/docusate Take 1 tablet by mouth 15 tablet 0 04/11/20 Active (SENOKOT-S) 8.6/50 mg twice daily. Indications: 17 tabletIndications: CONSTIPATION constipation HYDROcodone/acetaminophen Take 1 tablet by mouth 20 tablet 0 04/11/20 Active (NORCO) 7.5/325 mg every 6 hours as needed 17 tabletIndications: PAIN for Pain Indications: PAIN ondansetron (ZOFRAN ODT) DISSOLVE ONE TABLET IN 60 tablet 0 05/07/20 Active 8 mg rapid dissolve MOUTH EVERY 8 HOURS 17 tablet NEEDED FOR NAUSEA. NEEDS GI OFFICE VISIT FOR ADDITIONAL REFILLS. acetaminophen (TYLENOL) Take 1,000 mg by mouth Active 500 mg tablet every 6 hours as needed for Pain (patient does not take more than four per day). Max of 4,000 mg of acetaminophen in 24 hours. electrolyte GUT PEG Split dose 4000 mL 0 06/03/20 Active (NULYTELY, COLYTE, 17 GAVILYTE-N) 420 gram oral solution ferrous sulfate (IRON Take 1 tablet by mouth 30 tablet 3 06/06/20 Active (FERROUS SULFATE)) 325 mg daily for 120 days. Take 17 18 (65 mg iron) with 8 ounces of orange tabletIndications: juice Medication monitoring encounter cholecalciferol(+) Take 1 capsule by mouth 8 capsule 0 06/06/2003/06 Active (Vitamin D3) 50,000 units every 7 days for 8 doses. 17 18 capsuleIndications: Indications: VITAMIN D VITAMIN D DEFICIENCY DEFICIENCY (HIGH DOSE (HIGH DOSE THERAPY) THERAPY) cyanocobalamin (VITAMIN Inject 1 mL into the 1 mL 3 06/06/20 Active B-12) 1,000 mcg/mL muscle every 30 days. 17 injectionIndications: Indications: VITAMIN B12 VITAMIN B12 DEFICIENCY DEFICIENCY traMADol (ULTRAM) 50 mg Take 1-2 tablets by mouth 30 tablet 0 06/03/20 Discontin tabletIndications: PAIN every 6 hours as needed. 17 17 ued Indications: PAIN Active Problems Problem Noted Date Left renal mass 04/10/2017 Renal mass 03/21/2017 Overview: Added automatically from request for surgery [id number] 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 06/24/2013 Overview: S/P FREDI LINO 11/27 Depression 06/24/2013 S/P cholecystectomy 06/24/2013 Overview: 2007 S/P appendectomy 06/24/2013 Overview: November 2012 Pancreatitis 10/23/2011 Encounters Date Type Specialty Care Team Description 06/20/2017 Telephone Oncology Abel Poe MD Pain 06/19/2017 Orders Only Gastroenterology Tyesha Sanchez MD 06/19/2017 Telephone Gastroenterology Randy Nnuez MD Follow-up Phone Call 06/18/2017 Hospital Lab Tyesha Sanchez MD Other chronic Encounter pancreatitis (HCC) 06/06/2017 Telephone Gastroenterology Maggie Puente Appointment Request (Upper EUS/Colonoscopy) 06/06/2017 Telephone Gastroenterology Randy Nunez MD Results; Test 06/03/2017 Hospital Lab Randy Nunez MD Encounter 06/03/2017 Office Visit Gastroenterology Randy Nunez MD Nausea and vomiting, intractability of vomiting not specified, unspecified vomiting type (Primary Dx);Microcytic anemia;Fatigue, unspecified type;Weight gain;Chronic pancreatitis, unspecified pancreatitis type (HCC);History of colon polyps;Low vitamin D level;Medication monitoring encounter 06/03/2017 Documentation Oncology Abel Poe MD 05/21/2017 Telephone Oncology Abel Poe MD Abdominal pain 05/07/2017 Refill Gastroenterology Jessica Valera ARNP 05/06/2017 Office Visit Oncology Abel Poe MD Left renal mass ( Primary Dx) 04/29/2017 Telephone Oncology Abel Poe MD Abdominal [...] LAPAROSCOPY 04/09/2017 Anesthesia Parvez Mayen SRNA Event from Last 3 Months Family History Medical [...] Never Used Alcohol Use Drinks/Week oz/Week Comments No Sex Assigned at Date Recorded Not on file Last Filed Vital Signs Vital Sign Reading Time Taken Blood Pressure 129/78 06/03/2017 10:10 AM PATTERNMAKER APPRENTICE WOOD Pulse 66 06/03/2017 10:10 AM PATTERNMAKER APPRENTICE WOOD Temperature 36.6 C (97.8 F) 06/03/2017 10:10 AM PATTERNMAKER APPRENTICE WOOD Respiratory Rate 14 06/03/2017 10:10 AM PATTERNMAKER APPRENTICE WOOD Oxygen Saturation 97% 05/06/2017 8:47 AM PATTERNMAKER APPRENTICE WOOD Inhaled Oxygen - - Concentration Weight 117.2 kg (258 lb 4.8 oz) 06/03/2017 10:10 AM PATTERNMAKER APPRENTICE WOOD Height 160 cm (5' 3") 06/03/2017 10:10 AM PATTERNMAKER APPRENTICE WOOD Body Mass Index 45.76 06/03/2017 10:10 AM PATTERNMAKER APPRENTICE WOOD Plan of Treatment Date Type Specialty Care Team Description 05/06/2017 Procedure Pass Oncology 05/06/2017 Procedure Pass Oncology Health Maintenance Due Date Last Done Comments [...] CDT from Last 3 Months Results * SURGICAL PATHOLOGY (06/18/2017 2:27 PM) Only the most recent of 2 results within the time period is included. Component Value Ref Range PATHOLOGY REPORT [facility] [email or web address] Department of Pathology and Laboratory Medicine [address] [place] [id number] Surgical Pathology Office: [phone] SURGICAL PATHOLOGY REPORT NAME: JAYLYN DELGADO SURG PATH #: [id number] MR #: [id number] SPECIMEN CLASS: SR BILLING #: [id number] ALT ID #: LOCATION: [facility] DATE OF PROCEDURE: 06/18/2017 AGE: 32 SEX: F DATE RECEIVED: 06/18/2017 : 1985 TIME RECEIVED: 14:27 PHYSICIAN: TYESHA WOODWARD DATE OF REPORT: 06/19/2017 COPY TO: DATE OF PRINTIN06/19/2017 ################################################## ###################### Final Diagnosis: A. Gastric mucosa, gastric biopsy: Mild chronic gastritis. No H. pylori-like organisms are identified on H and E sections. Attestation: By this signature, I attest that I have personally formulated the final interpretation expressed in this report and that the above diagnosis is based upon my examination of the slides and/or other material indicated in this report. +++ +++ lkr/06/19/2017 ################################################## ###################### Material Received: A: gastric biopsy History: 32-year-old female with history of chronic pancreatitis. Gross Description: A. Received in formalin labeled "gastric BX" is a 0.7 x 0.6 x 0.4 cm aggregate of trujillo-brown soft tissue fragments. The specimen is entirely submitted in cassette A1. (tn) trujillo/06/18/2017 Specimen Performing Laboratory LAB RESULTS * ENDOSCOPIC ULTRASOUND REPORT (06/18/2017) Specimen Performing Laboratory IN CLINIC * IRON + BINDING CAPACITY + %SAT+ FERRITIN (06/03/2017 11:28 AM) Component Value Ref Range Iron 86 50 - 160 MCG/DL Iron Binding-TIBC 548 (H) 270 - 380 MCG/DL % Saturation 16 (L) 28 - 42 % Ferritin 60 10 - 200 NG/ML Specimen Performing Laboratory Blood MAIN LAB [address] [place] [address] * TSH WITH FREE T4 REFLEX (06/03/2017 11:28 AM) Component Value Ref Range TSH 1.708 0.35 - 5.00 MCU/ML Specimen Performing Laboratory Blood MAIN LAB [address] [place] [address] * 25-OH VITAMIN D (D2 + D3) (06/03/2017 11:28 AM) Component Value Ref Range Vitamin D(25-OH)Total 19.3 (L) 30 - 80 NG/ML Specimen Performing Laboratory [facility] [address] [place] [address] * LIPASE (06/03/2017 11:28 AM) Component Value Ref Range Lipase 26 11 - 82 U/L Specimen Performing Laboratory [facility] [address] [place] [address] * VITAMIN B12 (06/03/2017 11:28 AM) Component Value Ref Range Vitamin B12 185 180 - 914 PG/ML Specimen Performing Laboratory Blood MAIN LAB [address] [place], [place] [id number] * CORTISOL-AM (06/03/2017 11:28 AM) Component Value Ref Range Cortisol-AM 10.2 6.7 - 22.6 MCG/DL Specimen Performing Laboratory Blood MAIN LAB [address] [place] [address] * AMYLASE (06/03/2017 11:28 AM) Component Value Ref Range Amylase 39 24 - 100 U/L Specimen Performing Laboratory Blood MAIN [facility] [address] [place] [address] * COMPREHENSIVE METABOLIC PANEL (06/03/2017 11:28 AM) Component Value Ref Range Sodium 136 (L) 137 - 147 MMOL/L Potassium 4.0 3.5 - 5.1 MMOL/L Chloride 104 98 - 110 MMOL/L Glucose 87 70 - 100 MG/DL Blood Urea Nitrogen 14 7 - 25 MG/DL Creatinine 0.95 0.4 - 1.00 MG/DL Calcium 9.3 8.5 - 10.6 MG/DL Total Protein 7.3 6.0 - 8.0 G/DL Total Bilirubin 0.4 0.3 - 1.2 MG/DL Albumin 3.8 3.5 - 5.0 G/DL Alk Phosphatase 54 25 - 110 U/L AST (SGOT) 31 7 - 40 U/L CO2 24 21 - 30 MMOL/L ALT (SGPT) 17 7 - 56 U/L Anion Gap 8 3 - 12 eGFR Non >60 >60 mL/min Comment: The [...] Specimen Performing Laboratory Blood MAIN LAB [address] [place] [address] * BASIC METABOLIC PANEL (05/06/2017 8:31 AM) Only the most recent of 3 results within the time period is included. Component Value Ref Range Sodium 137 137 - 147 MMOL/L Potassium 3.8 3.5 - 5.1 MMOL/L Chloride 104 98 - 110 MMOL/L CO2 27 21 - 30 MMOL/L Anion Gap 6 3 - 12 Glucose 88 70 - 100 MG/DL Blood Urea Nitrogen 17 7 - 25 MG/DL Creatinine 0.99 0.4 - 1.00 MG/DL Calcium 9.1 8.5 - 10.6 MG/DL eGFR Non >60 [...] Clinical Pharmacist for questions. Specimen Performing Laboratory [facility] [address] [place] [address] * CT ABD/PEL EXTERNAL IMAGING (04/13/2017) Narrative [...] Specimen Performing Laboratory Blood MAIN LAB [address] [place] [address] * ANESTHESIA PERIPHERAL NERVE BLOCK (04/10/2017 6:48 [...] by: TIA MUNROE Authorized by: TREMAINE MELENDEZ * BLOOD TYPE CONFIRMATION - ORDER ONLY IF REQUESTED BY LAB (04/10/2017 9:44 AM) Component Value Ref Range ABO/RH(D) A NEG Specimen Performing Laboratory Blood MAIN LAB [address] [place] [address] * TYPE & CROSSMATCH (04/10/2017 9:29 AM) Component Value Ref Range Units Ordered 0 Crossmatch Expires 04/13/2017 Record Check 2ND TYPE REQUIRED ABO/RH(D) A NEG Antibody Screen NEG Electronic Crossmatch YES Specimen Performing Laboratory Blood MAIN LAB [address] [place] [address] from Last 3 Months
--- OUTSIDE RECORDS SUMMARY | 2017-06-29 18:47 | XMS REPORT | Encounter Summary ---
Author Author [facility] Organization [facility] Address Unknown Phone Unavailable Care Team Providers Care Early Intervention School Psychologist Name Role Phone PCP Unavailable Reason for Visit * Reason Comments Pain Encounter Details Date Type Department Care Team Description 06/20/2017 Telephone [facility] Abel Poe MD [facility] Exam [address] [place] [address] [place] [address] [phone] Social History Tobacco Use Types Packs/Day Years Used Date Never Smoker Smokeless Tobacco: Never Used Alcohol Use Drinks/Week oz/Week Comments No Sex Assigned at Date Recorded Not on file as of this encounter Functional Status Functional Status Response Date of Assessment Does the patient have a hearing impairment: No 06/03/2017 Does the patient have a visual impairment: No 06/03/2017 Does the patient have impaired ambulation: No 06/03/2017 Does the patient have an activity of daily living No 06/03/2017 (ADL) impairment: Does the patient have an instrumental activity of No 06/03/2017 daily living (IADL) impairment: Cognitive Status Response Date of Assessment Does the patient have a cognitive impairment: Yes 06/03/2017 as of this encounter Miscellaneous Notes * Telephone Encounter - Maddi Cannon RN - 06/20/2017 9:47 AM DIGITAL SPECIALIST Pt called stating she has been sick since having he GI scope and now is experiencing pain in abdomen on right side which is opposite side of renal surgery. Pt notes her urine is dark but denies fever. Pt admits to increase stress in her life and has to go to court today for which Dr Gooden is speaking with conciliation court judge. Instructed pt she needs to either go to ER if pain is severe or see her PCP. Pt has appt with PCP tomorrow and was encouraged to keep it. Pt verbalizes understanding. in this encounter Plan of Treatment Date Type Specialty Care Team Description 05/06/2017 Procedure Pass Oncology 05/06/2017 Procedure Pass Oncology as of this encounter Visit Diagnoses Not on filein this encounter
--- OUTSIDE RECORDS SUMMARY | 2017-06-29 18:47 | XMS REPORT | Encounter Summary ---
Author Author [facility] Organization [facility] Address Unknown Phone Unavailable Care Team Providers Care Corporate Strategy Associate Name Role Phone PCP Unavailable Encounter Details Date Type Department Care Team Description 06/19/2017 Orders Only [facility] Jose Sanchez MD Physicians - Internal [address] [facility] Medicine [address] [place] [address] [address] [facility] [phone] [address] Social History Tobacco Use Types [...] impairment: Yes 06/03/2017 as of this encounter Plan of Treatment Date Type Specialty Care Team Description 05/06/2017 Procedure Pass Oncology 05/06/2017 Procedure Pass Oncology as of this encounter Visit Diagnoses Not on filein this encounter
--- OUTSIDE RECORDS SUMMARY | 2017-06-29 18:47 | XMS REPORT | Encounter Summary ---
Author Author [facility] Organization [facility] Address Unknown Phone Unavailable Care Team Providers Care Safekeeping Clerk Name Role Phone PCP Unavailable Encounter Details Date Type Department Care Team Description 05/06/2017 Procedure Pass [facility] Exam [address] [place] [id number] Social History Tobacco Use Types Packs/Day Years [...]
--- OUTSIDE RECORDS SUMMARY | 2017-06-29 18:47 | XMS REPORT | Encounter Summary ---
Author Author [facility] Organization [facility] Address Unknown Phone Unavailable Care Team Providers Care Drafter Seismograph Name Role Phone PCP Unavailable Encounter Details Date Type Department Care Team Description 06/18/2017 Hospital [facility] Tyesha Sanchez MD Other chronic Encounter [address] pancreatitis ([place]) [place] [address] [address] [place], [place] [id number] Social History Tobacco Use Types Packs/Day Years [...] impairment: Yes 06/03/2017 as of this encounter Medications at Time of Discharge Medication Sig. Disp. Refills Start Date End Date acetaminophen (TYLENOL) Take 1,000 mg by mouth 500 mg tablet every 6 hours as needed for Pain (patient does not take more than four per day). Max of 4,000 mg of acetaminophen in 24 hours. cholecalciferol(+) Take 1 capsule by mouth 8 capsule 0 06/06/2017 (Vitamin D3) 50,000 units every 7 days for 8 doses. capsuleIndications: Indications: VITAMIN D VITAMIN D DEFICIENCY DEFICIENCY (HIGH DOSE (HIGH DOSE THERAPY) THERAPY) cyanocobalamin (VITAMIN Inject 1 mL into the 1 mL 3 06/06/2017 B-12) 1,000 mcg/mL muscle every 30 days. injectionIndications: Indications: VITAMIN B12 VITAMIN B12 DEFICIENCY DEFICIENCY diphenhydrAMINE (BENADRYL Take 50 mg by mouth every ALLERGY) 25 mg tablet 6 hours as needed. electrolyte GUT PEG Split dose 4000 mL 0 06/03/2017 (NULYTELY, COLYTE, GAVILYTE-N) 420 gram oral solution estradiol (ESTRACE) 2 mg Take 3 mg by mouth at tablet bedtime daily. ferrous sulfate (IRON Take 1 tablet by mouth 30 tablet 3 06/06/2017 10/04/2017 (FERROUS SULFATE)) 325 mg daily for 120 days. Take (65 mg iron) with 8 ounces of orange tabletIndications: juice Medication monitoring encounter fluoxetine (PROZAC) 20 mg Take 2 capsules by mouth 90 capsule 3 2016 capsule at bedtime daily. HYDROcodone/acetaminophen Take 1 tablet by mouth 20 tablet 0 2016 (NORCO) 7.5/325 mg every 6 hours as needed tabletIndications: PAIN for Pain Indications: PAIN ondansetron (ZOFRAN ODT) DISSOLVE ONE TABLET IN 60 tablet 0 2016 8 mg rapid dissolve MOUTH EVERY 8 HOURS tablet NEEDED FOR NAUSEA. NEEDS GI OFFICE VISIT FOR ADDITIONAL REFILLS. polyethylene glycol 3350 Take 1 packet by mouth 12 each 5 04/11/2017 (MIRALAX) 17 g daily. Indications: packetIndications: CONSTIPATION constipation rOPINIRole (REQUIP) 4 mg Take 4 mg by mouth at tablet bedtime daily. senna/docusate Take 1 tablet by mouth 15 tablet 0 04/11/2017 (SENOKOT-S) 8.6/50 mg twice daily. Indications: tabletIndications: CONSTIPATION constipation as of this encounter Plan of Treatment Date Type Specialty Care Team Description 05/06/2017 Procedure Pass Oncology 05/06/2017 Procedure Pass Oncology as of this encounter Results * SURGICAL PATHOLOGY (06/18/2017 2:27 PM) Component Value Ref Range PATHOLOGY REPORT [facility] [email or web address] Department of Pathology and Laboratory Medicine [address] [place] [address] Surgical Pathology Office: [phone] SURGICAL PATHOLOGY REPORT NAME: JAYLYN DELGADO SURG PATH #: [id number] MR #: [id number] SPECIMEN CLASS: SR BILLING #: [id number] ALT ID #: LOCATION: [facility] DATE OF PROCEDURE: 06/18/2017 AGE: 32 [...] cassette A1. (tn) trujillo/06/18/2017 Specimen Performing Laboratory [facility] RESULTS in this encounter Visit Diagnoses Not on filein this encounter Admitting Diagnoses Diagnosis Other chronic pancreatitis (HCC) Other chronic pancreatitis in this encounter
--- OUTSIDE RECORDS SUMMARY | 2017-06-29 18:47 | XMS REPORT | Encounter Summary ---
Author Author [facility] Organization [facility] Address Unknown Phone Unavailable Care Team Providers Care Enterostomal Nurse Name Role Phone PCP Unavailable Reason for Visit * Reason Comments Abdominal pain Encounter Details Date Type Department Care Team Description 05/21/2017 Telephone [facility] Abel Poe MD Abdominal pain [facility] Exam [address] [place] [address] [place] [address] [phone] Social History Tobacco Use Types Packs/Day Years [...] Telephone Encounter - Jenn Bhatt RN - 05/21/2017 3:20 PM PRECISION FARMING COORDINATOR Pt called to report that she had continued stomach issues. She will wake up during the night very sick @ her stomach and has problems eating. States her left side is still hurting a lot also. Pt reports that these episodes are intermittent. She is normal other times and has been returning to her normal activity level. She had tried to maintain hydration by drinking lots of water and denies constipation. She did get in touch with GI dept for follow up and has an appt with them on 06/03/17. Will relay info to Dr. Poe. in this encounter Plan of Treatment Date Type Specialty Care Team Description 05/06/2017 Procedure Pass Oncology 05/06/2017 Procedure Pass Oncology as of this encounter Visit Diagnoses Not on filein this encounter
--- OUTSIDE RECORDS SUMMARY | 2017-06-29 18:47 | XMS REPORT | Encounter Summary ---
Author Author [facility] Organization [facility] Address Unknown Phone Unavailable Care Team Providers Care Newspaper Writer Name Role Phone PCP Unavailable Reason for Visit * Reason Comments Appointment Request Upper EUS/Colonoscopy Encounter Details Date Type Department Care Team Description 06/06/2017 Telephone [facility] Maggie Puente Appointment Request Physicians - Internal (Upper EUS/Colonoscopy) Medicine [address] [facility] [place] [address] Social History Tobacco Use Types [...] encounter Miscellaneous Notes * Telephone Encounter - Maggie Puente - 06/07/2017 8:32 AM DASHBOARD DEVELOPER Scheduled Upper EUS/Colonoscopy at [facility] with Dr Sanchez on 06/18/17. Verbal instructions given over the phone, packet e-mailed to [email or web address]. Advised patient to contact the prescribing provider for any blood thinning medication and/or aspirin recommendations 1 week prior to having procedure. Patient verbalized understanding. * Telephone Encounter - Maggie Puente - 06/07/2017 8:28 AM DASHBOARD DEVELOPER Left generic message for patient to return call to schedule Upper EUS/ Colonoscopy. * Telephone Encounter - Maggie Puente - 06/06/2017 2:36 PM DASHBOARD DEVELOPER Left generic message for patient to return call to schedule Upper EUS/ Colonoscopy. in this encounter Plan of Treatment Date Type Specialty Care Team Description 05/06/2017 Procedure Pass Oncology 05/06/2017 Procedure Pass Oncology as of this encounter Visit Diagnoses Not on filein this encounter
--- OUTSIDE RECORDS SUMMARY | 2017-06-29 18:47 | XMS REPORT | Encounter Summary ---
Author Author [facility] Organization [facility] Address Unknown Phone Unavailable Care Team Providers Care Crm Marketing Specialist Name Role Phone PCP Unavailable Reason for Visit * Reason Comments Follow-up Phone Call Encounter Details Date Type Department Care Team Description 06/19/2017 Telephone [facility] Randy Nunez MD Follow- up Phone Call Physicians - Internal [facility] Medicine [address] [place] [address] [place] [address] Social History Tobacco Use Types [...] Telephone Encounter - Arleen Leone RN - 06/19/2017 2:51 PM WARBLE SAW OPERATOR Message back to patient regarding Dr. Nunez's response. * Telephone Encounter - Randy Nunez MD - 06/19/2017 1:00 PM WARBLE SAW OPERATOR Yes can be done locally, please have copy sent to us. Thanks * Telephone Encounter - Arleen Leone RN - 06/19/2017 9:26 AM WARBLE SAW OPERATOR Patient calling today to inform did have EUS/EGD yesterday with Dr. Sanchez but that did not tolerate the split dose golytely due to n/v. Did not have BM during prep until yesterday after procedure was completed and colonoscopy was deferred. Patient asking that is may have colonoscopy by Surgeon Dr. Baltazar" and that she has an appointment upcoming Saturday to see in clinic due to follow- up of previous enlarged neck glands. Patient feels has not have much urine out- up with only 1 kidney and will follow-up with with her Doctor following. in this encounter Plan of Treatment Date Type Specialty Care Team Description 05/06/2017 Procedure Pass Oncology 05/06/2017 Procedure Pass Oncology as of this encounter Visit Diagnoses Not on filein this encounter
--- OUTSIDE RECORDS SUMMARY | 2017-06-29 18:47 | XMS REPORT | Encounter Summary ---
Author Author [facility] Organization [facility] Address Unknown Phone Unavailable Care Team Providers Care Rv Repair Technician Name Role Phone PCP Unavailable Reason for Visit * Reason Comments Results Test Encounter Details Date Type Department Care Team Description 06/06/2017 Telephone [facility] Randy Nunez MD Results ; Test Physicians - Internal [address] [facility] [place] [address] [place] [address] [place] [address] Social History Tobacco Use Types [...] Telephone Encounter - Arleen Leone RN - 06/06/2017 8:47 AM PAROLE OR PROBATION OFFICER Patient aware of lab results along with Dr. Nunez's recommendations. Results sent to Dr. Whittington's office and patient will get with their office regarding administration of her new Vitamin B12 monthly injections. All new prescriptions have been e-scribed to patient's pharmacy. Patient aware may have to purchase Iron over the counter. * Telephone Encounter - Arleen Leone RN - 06/06/2017 8:34 AM PAROLE OR PROBATION OFFICER ----- Message from Randy Nunez MD sent at 06/05/2017 10:11 AM PAROLE OR PROBATION OFFICER ----- Laboratory evaluation is consistent with iron deficiency. 1. Start Ferrous sulfate 325mg daily with 8 ounces of orange juice for a total of 4 months. 2. Repeat iron panel 4 months after starting iron replacement to see if additional replacement is needed. 3. Very important to have the patient get repeat iron panel in 4 months as continued iron replacement can lead to iron overload. 1. Vitamin D3 50,000 units take one tablet one day each week for 8 weeks 2. Then take vitamin D3 1000 units po q day thereafter 3. Repeat 25-OH vitamin D level in 3 months Patient is vitamin B12 deficient. 1. Needs Vitamin B12 1000 micrograms IM every month indefinitely. 2. If patient lives out of town have this administered by their PCP. in this encounter Plan of Treatment Date Type Specialty Care Team Description 05/06/2017 Procedure Pass Oncology 05/06/2017 Procedure Pass Oncology Name Priority Associated Diagnoses Order Schedule 25-OH VITAMIN D (D2 + D3) Routine Low vitamin D level Expected: 2017 Medication monitoring (Approximate), Expires: encounter 06/06/2018 IRON + BINDING CAPACITY + %SAT+ FERRITIN Routine Other iron deficiency Expected: 10/07/2017 anemia (Approximate), Expires: Medication monitoring 06/06/2018 encounter as of this encounter Visit Diagnoses Diagnosis Other iron deficiency anemia - Primary Low vitamin D level Medication monitoring encounter Encounter for therapeutic drug monitoring in this encounter
--- OUTSIDE RECORDS SUMMARY | 2017-06-29 18:47 | XMS REPORT | Encounter Summary ---
Author Author [facility] Organization [facility] Address Unknown Phone Unavailable Care Team Providers Care Structural Steel Worker Helper Name Role Phone PCP Unavailable Encounter Details Date Type Department Care Team Description 06/03/2017 Documentation [facility] Abel Poe MD [facility] - [facility] Exam [address] [place] [address] [place] [address] [phone] Social History Tobacco Use Types Packs/Day Years [...] impairment: Yes 06/03/2017 as of this encounter Progress Notes * Maddi Cannon, TIMUR - 06/03/2017 3:37 PM HEADHUNTER Pt called stating she was seen at [facility] ER this weekend for kidney infection and given 3 days of Bactrim. Pt reports she continues to have "strong urine" which she describes as odor and urine is orange in color. Results of urine test obtained from ER and showed lactobascillus bacteria. Pt instructed to continue to force fluids and follow up with PCP. Pt verbalizes understanding. in this encounter Plan of Treatment Date Type Specialty Care Team Description 05/06/2017 Procedure Pass Oncology 05/06/2017 Procedure Pass Oncology as of this encounter Visit Diagnoses Not on filein this encounter
--- OUTSIDE RECORDS SUMMARY | 2017-06-29 18:47 | XMS REPORT | Encounter Summary ---
Author Author [facility] Organization [facility] Address Unknown Phone Unavailable Care Team Providers Care Percussion Tuner Name Role Phone PCP Unavailable Encounter Details Date Type Department Care Team Description 05/06/2017 Procedure Pass [facility] - [facility] Exam [address] [place] [id number] Social History Tobacco Use Types Packs/Day Years [...]
--- OUTSIDE RECORDS SUMMARY | 2017-06-29 18:47 | XMS REPORT | Encounter Summary ---
Author Author [facility] Organization [facility] Address Unknown Phone Unavailable Care Team Providers Care Patrol Sergeant Sheriff'S Office Name Role Phone PCP Unavailable Encounter Details Date Type Department Care Team Description 06/03/2017 Hospital [facility] Randy Nunez MD Encounter [address] [place] [address] [address] [place] [address] [phone] Social History Tobacco Use Types Packs/Day Years [...] 4,000 mg of acetaminophen in 24 hours. diphenhydrAMINE (BENADRYL Take 50 mg by mouth [...] Oncology as of this encounter Results * 25-OH VITAMIN D (D2 + D3) (06/03/2017 11:28 AM) Component Value Ref Range Vitamin D(25-OH)Total 19.3 (L) 30 - 80 NG/ML Specimen Performing Laboratory Blood MAIN LAB [address] [place] [address] * LIPASE (06/03/2017 11:28 AM) Component Value Ref Range Lipase 26 11 - 82 U/L Specimen Performing Laboratory Blood MAIN LAB [address] [place] [address] * AMYLASE (06/03/2017 11:28 AM) Component Value Ref Range Amylase 39 24 - 100 U/L Specimen Performing Laboratory Blood MAIN LAB [address] [place] [address] * IRON + BINDING CAPACITY + %SAT+ FERRITIN (06/03/2017 11:28 AM) Component Value Ref Range Iron 86 50 - 160 MCG/DL Iron Binding-TIBC 548 (H) 270 - 380 MCG/DL % Saturation 16 (L) 28 - 42 % Ferritin 60 10 - 200 NG/ML Specimen Performing Laboratory Blood MAIN LAB [address] [place] [address] * VITAMIN B12 (06/03/2017 11:28 AM) Component Value Ref Range Vitamin B12 185 180 - 914 PG/ML Specimen Performing Laboratory Blood [facility] MAIN [facility] [address] [place] [address] * TSH WITH FREE T4 REFLEX (06/03/2017 11:28 AM) Component Value Ref Range TSH 1.708 0.35 - 5.00 MCU/ML Specimen Performing Laboratory Blood [facility] MAIN [facility] [address] [place] [address] * CORTISOL-AM (06/03/2017 11:28 AM) Component Value Ref Range Cortisol-AM 10.2 6.7 - 22.6 MCG/DL Specimen Performing Laboratory Blood [facility] MAIN [facility] [address] [place] [address] * COMPREHENSIVE METABOLIC PANEL (06/03/2017 11:28 AM) [...] Performing Laboratory Blood [facility] MAIN [facility] [address] [place] [address] in this encounter Visit Diagnoses Diagnosis Nausea and vomiting, intractability of vomiting not specified, unspecified vomiting type Fatigue, unspecified type Weight gain Abnormal weight gain Microcytic anemia Iron deficiency anemia, unspecified Chronic pancreatitis, unspecified pancreatitis type (HCC) Low vitamin D level Medication monitoring encounter Encounter for therapeutic drug monitoring in this encounter
--- OUTSIDE RECORDS SUMMARY | 2017-06-29 18:47 | XMS REPORT | Encounter Summary ---
Author Author [facility] Organization [facility] Address Unknown Phone Unavailable Care Team Providers Care Sole Tier Name Role Phone PCP Unavailable Reason for Referral * Consult, Test & Treat (Routine) Status Reason Specialty Diagnoses / Referred By Referred To Procedures Contact Contact New Request Specialty Diagnoses Laura Nunez Mojtaba, Neli Padilla MD MD Required pancreatitis, [address] [place] [address] pancreatitis [address] [place], [place] type (HCC) [place] [address] History of colon [address] Phone: polyps [phone] Scheduling Instructions Prep instructions given to patient during clinic. Reason for Visit * Reason Comments Pancreatitis Nausea Vomiting Polydipsia patient feels thirsty all the time Encounter Details Date Type Department Care Team Description 06/03/2017 Office Visit [facility] Randy Nunez MD Nausea and vomiting, Physicians - Internal [address] intractability of Medicine [place] [address] vomiting not specified, [address] [place] [address] unspecified [place] [address] (Primary Dx);Microcytic [phone] anemia;Fatigue, unspecified type;Weight gain;Chronic pancreatitis, unspecified pancreatitis type (HCC);History of colon polyps;Low vitamin D level;Medication monitoring encounter Social History Tobacco Use Types Packs/Day Years Used Date Never Smoker Smokeless Tobacco: Never Used Alcohol Use Drinks/Week oz/Week Comments No Sex Assigned at Date Recorded Not on file as of this encounter Last Filed Vital Signs Vital Sign Reading Time Taken Blood Pressure 129/78 06/03/2017 10:10 AM BRAND LEADER Pulse 66 06/03/2017 10:10 AM BRAND LEADER Temperature 36.6 C (97.8 F) 06/03/2017 10:10 AM BRAND LEADER Respiratory Rate 14 06/03/2017 10:10 AM BRAND LEADER Oxygen Saturation - - Inhaled Oxygen - - Concentration Weight 117.2 kg (258 lb 4.8 oz) 06/03/2017 10:10 AM BRAND LEADER Height 160 cm (5' 3") 06/03/2017 10:10 AM BRAND LEADER Body Mass Index 45.76 06/03/2017 10:10 AM BRAND LEADER in this encounter Functional Status Functional Status [...] impairment: Yes 06/03/2017 as of this encounter Instructions * Patient Instructions - Randy Nunez MD - 06/03/2017 10:30 AM BRAND LEADER You need to see a local Major Gifts Officer to review a gastroparetic diet Blood work today Schedule colonoscopy and EUS with Dr. Sanchez. Please follow your prep instructions. You will be contacted by Maggie to schedule or you may phone [phone], option 2 to schedule. Would like to see you back in approximate 3 months with Jessica Valera NP. in this encounter Progress Notes * Randy Nunez MD - 06/03/2017 10:30 AM BRAND LEADER Formatting of this note may be different from the original. Date of Service: 06/03/2017 Subjective: Janeth Rajput is a 32 y.o. female. History of Present Illness Ms. Rajput has a history of idiopathic chronic pancreatitis diagnosed with endoscopic ultrasound. She has seen Dr. Garcia in the past. She has undergone prior celiac plexus block. She was last seen at by Jessica Valera on 02/03/2015. She continues to have daily nausea and this has been going on since her cholecystectomy in 2006. She will have episodes of vomiting of bilious material. The nausea is chronic and eating actually does not make it worse. She notes early satiety and although she reports a poor appetite. She has actually gained about 10 pounds of weight since she was last seen here at . She also has what she describes as constant pain in the epigastrium. It can sometimes radiate around to her back. The pain is always present, but does not seem to worsen with eating. Lifting seems to make it worse. She has undergone 2 prior trigger point injections with no benefit. Otherwise, she denies odynophagia or dysphagia. She denies heartburn. We have given her empiric trial of proton pump inhibitor in the past without benefit. She has been treated with pancreatic enzymes empirically in the past without benefit. Her chronic nausea is treated with Zofran. She is not try to gastroparetic diet. Most recent gastric emptying study was normal. Past medical history: 1. Changes of chronic pancreatitis on past endoscopic ultrasound. Most recent EUS - 01/18/15 confirmed chronic pancreatitis. 2. 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, status post total abdominal hysterectomy and oophorectomy in November 2012. 3. Status post cholecystectomy (2006). 4. History of depression. 5. Significant weight gain. 6. Left nephrectomy (renal cell cancer) 03/2017. 7. GET 07/15/13 normal. 8. MRI head 07/15/13 normal. Family history: paternal great uncle pancreatic cancer; maternal grandfather "abdominal tumor"; mother with colon polyps; paternal great uncle colon cancer. Social history: no alcohol or tobacco use. Review of Systems Constitutional: Positive for appetite change, diaphoresis and fatigue. HENT: Positive for sneezing. Respiratory: Positive for shortness of breath. Gastrointestinal: Positive for abdominal pain, nausea and vomiting. Musculoskeletal: Positive for back pain. Neurological: Positive for headaches. Hematological: Positive for adenopathy. Psychiatric/Behavioral: Positive for dysphoric mood. The patient is nervous/ anxious. All other systems reviewed and are negative. Objective: acetaminophen (TYLENOL) 500 mg tablet Take 1,000 mg by mouth every 6 hours as needed for Pain (patient does not take more than four per day). Max of 4,000 mg of acetaminophen in 24 hours. diphenhydrAMINE (BENADRYL ALLERGY) 25 mg tablet Take 50 mg by mouth every 6 hours as needed. estradiol (ESTRACE) 2 mg tablet Take 3 mg by mouth at bedtime daily. fluoxetine (PROZAC) 20 mg capsule Take 2 capsules by mouth at bedtime daily. (Patient taking differently: Take 60 mg by mouth at bedtime daily.) HYDROcodone/acetaminophen (NORCO) 7.5/325 mg tablet Take 1 tablet by mouth every 6 hours as needed for Pain Indications: PAIN ondansetron (ZOFRAN ODT) 8 mg rapid dissolve tablet DISSOLVE ONE TABLET IN MOUTH EVERY 8 HOURS NEEDED FOR NAUSEA. NEEDS GI OFFICE VISIT FOR ADDITIONAL REFILLS. polyethylene glycol 3350 (MIRALAX) 17 g packet Take 1 packet by mouth daily. Indications: CONSTIPATION rOPINIRole (REQUIP) 4 mg tablet Take 4 mg by mouth at bedtime daily. senna/docusate (SENOKOT-S) 8.6/50 mg tablet Take 1 tablet by mouth twice daily. Indications: CONSTIPATION Vitals: 06/03/17 1010 BP: 129/78 Pulse: 66 Resp: 14 Temp: 36.6 C (97.8 F) TempSrc: Oral Weight: 117.2 kg (258 lb 4.8 oz) Height: 160 cm (63") Body mass index is 45.76 kg/(m^2). Physical Exam Constitutional: She is oriented to person, place, and time. She appears well- developed and well-nourished. No distress. HENT: Head: Normocephalic and atraumatic. Eyes: Conjunctivae are normal. No scleral icterus. Neck: Neck supple. No tracheal deviation present. No thyromegaly present. Cardiovascular: Normal rate, regular rhythm and normal heart sounds. Exam reveals no gallop and no friction rub. No murmur heard. Pulmonary/Chest: Effort normal and breath sounds normal. No respiratory distress. She has no wheezes. She has no rales. She exhibits no tenderness. Abdominal: Soft. Bowel sounds are normal. She exhibits no distension and no mass. There is tenderness. There is no rebound and no guarding. Point tenderness in epigastrium with equivocal Carnett sign Musculoskeletal: She exhibits no edema. Lymphadenopathy: She has no cervical adenopathy. Neurological: She is alert and oriented to person, place, and time. Skin: Skin is warm and dry. No rash noted. She is not diaphoretic. No erythema. No pallor. Psychiatric: She has a normal mood and affect. Her behavior is normal. Judgment and thought content normal. Assessment and Plan: 1. Chronic nausea with intermittent vomiting, treated with ondansetron. 2. Chronic pancreatitis based on endoscopic ultrasound findings, prior treatment with pancreatic enzyme replacement, prior celiac plexus block. 3. History of intermittent constipation. Treat with MiraLAX. 4. History of colon polyps. 5. Nonalcoholic steatosis with prior history of elevated liver enzymes. 6. Status post left radical nephrectomy for renal cell cancer in March 2017. 7. Family history colon polyps and colon cancer. I had a long discussion with Janeth. She has chronic nausea with intermittent vomiting. No obvious etiology has been identified although this could potentially be related to her underlying chronic pancreatitis. She does not drink alcohol or smoke. We have discussed that despite a normal gastric emptying study given her symptoms, I would favor a trial of gastroparetic diet in addition to continuing Zofran. We have discussed repeating endoscopic ultrasound. I also think it would be prudent to evaluate her colon again given her past history of colon polyps and the fact that it has been at least 5 years since her last colonoscopy. At the present time, I recommend the followin. Continue Zofran as needed. 2. Local dietitian consultation to review gastroparetic diet. 3. Repeat pancreatic endoscopic ultrasound given history of chronic pancreatitis and continuing pain, nausea, and vomiting. 4. Surveillance colonoscopy given her past history of colon polyps as well as family history of colon polyps in her mother and colorectal cancer in a second- degree relative. 5. She will continue to follow closely with Urology given her history of recent surgery for renal cell cancer. 6. We will repeat amylase and lipase today as well as chemistry panel to check liver enzymes, iron panel, B12, vitamin D, AM cortisol and TSH. 7. Follow up in the GI clinic in 3 months or sooner if need be. I had a long discussion with Janeth and all questions were answered. in this encounter Plan of Treatment Date Type Specialty Care Team Description 05/06/2017 Procedure Pass Oncology 05/06/2017 Procedure Pass Oncology Name Priority Associated Diagnoses Order Schedule AMB REFERRAL TO GI LAB FOR PROCEDURE Routine Chronic pancreatitis, Ordered: 06/03/2017 unspecified pancreatitis type (HCC) History of colon polyps as of this encounter Results * 25-OH VITAMIN D (D2 + D3) (06/03/2017 11:28 AM) Component Value Ref Range Vitamin D(25-OH)Total 19.3 (L) 30 - 80 NG/ML Specimen Performing Laboratory Blood MAIN LAB [address] [place], [place] [id number] * LIPASE (06/03/2017 11:28 AM) Component Value Ref Range Lipase 26 11 - 82 U/L Specimen Performing Laboratory Blood MAIN LAB [address] [place], [place] [id number] * AMYLASE (06/03/2017 11:28 AM) Component Value Ref Range Amylase 39 24 - 100 U/L Specimen Performing Laboratory Blood MAIN LAB [address] [place] [address] * IRON + BINDING CAPACITY + %SAT+ FERRITIN (06/03/2017 11:28 AM) Component Value Ref Range Iron 86 50 - 160 MCG/DL Iron Binding-TIBC 548 (H) 270 - 380 MCG/DL % Saturation 16 (L) 28 - 42 % Ferritin 60 10 - 200 NG/ML Specimen Performing Laboratory Blood MAIN LAB [address] [place] [address] * VITAMIN B12 (06/03/2017 11:28 AM) Component Value Ref Range Vitamin B12 185 180 - 914 PG/ML Specimen Performing Laboratory Blood MAIN LAB [address] [place] [address] * TSH WITH FREE T4 REFLEX (06/03/2017 11:28 AM) Component Value Ref Range TSH 1.708 0.35 - 5.00 MCU/ML Specimen Performing Laboratory Blood MAIN LAB [address] [place] [address] * CORTISOL-AM (06/03/2017 11:28 AM) Component Value Ref Range Cortisol-AM 10.2 6.7 - 22.6 MCG/DL Specimen Performing Laboratory Blood MAIN LAB [address] [place] [address] * COMPREHENSIVE METABOLIC PANEL (06/03/2017 11:28 AM) [...] Performing Laboratory Blood [facility] MA[facility] [address] [place] [address] in this encounter Visit Diagnoses Diagnosis Nausea and vomiting, intractability of vomiting not specified, unspecified vomiting type - Primary Microcytic anemia Iron deficiency anemia, unspecified Fatigue, unspecified type Weight gain Abnormal weight gain Chronic pancreatitis, unspecified pancreatitis type (HCC) History of colon polyps Personal history of colonic polyps Low vitamin D level Medication monitoring encounter Encounter for therapeutic drug monitoring in this encounter
--- OUTSIDE RECORDS SUMMARY | 2017-06-29 18:48 | XMS REPORT | Encounter Summary ---
Author Author [facility] Organization [facility] Address Unknown Phone Unavailable Care Team Providers Care Medical Dosimetrist Name Role Phone PCP Unavailable Reason for Visit * Reason Comments General Question Encounter Details Date Type Department Care Team Description 04/13/2017 Telephone [facility] Katharina Vann MD General Question Physicians - Urology [address] [facility] [address] [place] [address] [address] [place] [phone] Social History Tobacco Use Types Packs/Day Years [...]
--- OUTSIDE RECORDS SUMMARY | 2017-06-29 18:48 | XMS REPORT | Encounter Summary ---
Author Author [facility] Organization [facility] Address Unknown Phone Unavailable Care Team Providers Care Promotions Officer Name Role Phone PCP Unavailable Reason for Visit * Reason Comments Abdominal pain Encounter Details Date Type Department Care Team Description 04/17/2017 Telephone [facility] Abel Poe MD Abdominal pain Cancer Center - [facility] Exam [address] [place] [address] [place] [address] [phone] Social History Tobacco Use Types Packs/Day Years [...] agreement. in this encounter Plan of Treatment Date Type Specialty Care Team Description 05/06/2017 Procedure Pass Oncology 05/06/2017 Procedure Pass Oncology as of this encounter Visit Diagnoses Not on filein this encounter
--- OUTSIDE RECORDS SUMMARY | 2017-06-29 18:48 | XMS REPORT | Encounter Summary ---
Author Author [facility] Organization [facility] Address Unknown Phone Unavailable Care Team Providers Care Clinic Manager Name Role Phone PCP Unavailable Reason for Referral * Radiology Services Status Reason Specialty Diagnoses / Referred By Referred To Procedures Contact Contact New Request Radiology Diagnoses Abel Poe MD Left renal mass [address] [place] [address] [place], [place] [address] * Radiology Services Status Reason Specialty Diagnoses / Referred By Referred To Procedures Contact Contact New Request Radiology Diagnoses Abel Poe MD Left renal mass [address] [place] [address] [place] [place], [place] [address] Reason for Visit * Reason Comments Heme/Onc Care Encounter Details Date Type Department Care Team Description 05/06/2017 Office Visit [facility] Abel Poe MD Left renal mass ([facility] Exam [address] Dx) [address] [address] [place] [address] [place] [address] [phone] Social History Tobacco Use Types Packs/Day Years Used Date Never Smoker Smokeless Tobacco: Never Used Alcohol Use Drinks/Week oz/Week Comments Yes Does not consume alcohol in excess. Sex Assigned at Date Recorded Not on file as of this encounter Last Filed Vital Signs Vital Sign Reading Time Taken Blood Pressure 123/61 05/06/2017 8:47 AM ADMINISTRATIVE ASSISTANT Pulse 73 05/06/2017 8:47 AM ADMINISTRATIVE ASSISTANT Temperature 36.7 C (98 F) 05/06/2017 8:47 AM ADMINISTRATIVE ASSISTANT Respiratory Rate 20 05/06/2017 8:47 AM ADMINISTRATIVE ASSISTANT Oxygen Saturation 97% 05/06/2017 8:47 AM ADMINISTRATIVE ASSISTANT Inhaled Oxygen - - Concentration Weight 114.4 kg (252 lb 3.2 oz) 05/06/2017 8:47 AM ADMINISTRATIVE ASSISTANT Height 156.8 cm (5' 1.75") 05/06/2017 8:47 AM ADMINISTRATIVE ASSISTANT Body Mass Index 46.5 05/06/2017 8:47 AM ADMINISTRATIVE ASSISTANT in this encounter Functional Status Functional Status Response Date of Assessment Does the patient have a hearing impairment: No 04/10/2017 as of this encounter Progress Notes * Jenn Bhatt RN - 05/06/2017 9:45 AM ADMINISTRATIVE ASSISTANT Bedside bladder scan performed. 5 ml report given to Dr. Poe. * Abel Poe MD - 05/06/2017 9:45 AM ADMINISTRATIVE ASSISTANT Formatting of this note may be different from the original. Name: Janeth Rajput : 1985 AGE: 32 y.o. DATE OF SERVICE: 05/06/2017 Subjective: Reason for Visit: renal cell carcinoma Heme/Onc Care Janeth Rajput is a 32 y.o. female. No matching staging information was found for the patient. History of Present Illness Trouble voiding. +Pain, "charley horse", can't wear pants. Wearing a binder, having pain without it. Was told she might have a hernia. +suppository and exlax to have BM Pushing to have BM's Not every day No narcotic pain medications +Chills, nausea No fevers Was told her pancreatic enzymes are elevated Acknowledges that stress/nervousness causes a lot of her symptoms Review of Systems Comprehensive ROS is negative other than per HPI Objective: diphenhydrAMINE (BENADRYL ALLERGY) 25 mg tablet Take 50 mg by mouth every 6 hours as needed. estradiol (ESTRACE) 2 mg tablet Take 2 mg by mouth at bedtime daily. fluoxetine (PROZAC) 20 mg capsule Take 2 capsules by mouth at bedtime daily. HYDROcodone/acetaminophen (NORCO) 7.5/325 mg tablet Take 1 tablet by mouth every 6 hours as needed for Pain Indications: PAIN ondansetron (ZOFRAN ODT) 8 mg rapid dissolve tablet DISSOLVE ONE TABLET IN MOUTH EVERY 8 HOURS NEEDED FOR NAUSEA; NEED GI OFFICE VISIT FOR ANY ADDITIONAL REFILLS polyethylene glycol 3350 (MIRALAX) 17 g packet Take 1 packet by mouth daily. Indications: CONSTIPATION rOPINIRole (REQUIP) 4 mg tablet Take 4 mg by mouth at bedtime daily. senna/docusate (SENOKOT-S) 8.6/50 mg tablet Take 1 tablet by mouth twice daily. Indications: CONSTIPATION traMADol (ULTRAM) 50 mg tablet Take 1-2 tablets by mouth every 6 hours as needed. Indications: PAIN Vitals: 05/06/17 0847 BP: 123/61 Pulse: 73 Resp: 20 Temp: 36.7 C (98 F) TempSrc: Oral SpO2: 97% Weight: 114.4 kg (252 lb 3.2 oz) Height: 156.8 cm (61.75") Body mass index is 46.5 kg/(m^2). Pain Score: Seven Pain Loc: Abdomen Pain Addressed: N/A and Patient has long GI history, she is planning to call for appointment Patient Evaluated for a Clinical Trial: No treatment clinical trial available for this patient. Eastern Cooperative Oncology Group performance status is 1, Restricted in physically strenuous activity but ambulatory and able to carry out work of a light or sedentary nature, e.g., light house work, office work. Physical Exam alert in minimal distress Abdomen obese, soft, incisions are well healed No signs of hernia Assessment and Plan: Patient tells me she was told her pancreatic enzymes are elevated, and has had this happen before. She states she has seen PCP but no intervention. Symptoms seem to be unrelated to her post-surgical status. No signs of hernia on exam or recent imagine. I reviewed her pathology. She has T1A RCC s/p radical nephrectomy. Will obtain her first post-op imaging in 6 months. I have encouraged her to reach out to Dr. Nuñez or his team regarding her GI issues. RTC [address] Abdomen, CXR, and labs. Strict call/return instructions given to the patient. in this encounter Plan of Treatment Date Type Specialty Care Team Description 05/06/2017 Procedure Pass Oncology 05/06/2017 Procedure Pass Oncology Name Priority Associated Diagnoses Order Schedule CT ABDOMEN W CONTRAST Routine Left renal mass Expected: 11/04/2017 (Approximate), Expires: 05/06/2018 CT CHEST W CONTRAST Routine Left renal mass Expected: 11/04/2017 (Approximate), Expires: 05/06/2018 BASIC METABOLIC PANEL Routine Left renal mass Expected: 11/04/2017 (Approximate), Expires: 05/06/2018 as of this encounter Results * BASIC METABOLIC PANEL (05/06/2017 8:31 AM) Component Value Ref Range Sodium 137 [...] Clinical Pharmacist for questions. Specimen Performing Laboratory [facility] [address] [place] [address] in this encounter Visit Diagnoses Diagnosis Left renal mass - Primary Unspecified disorder of kidney and ureter in this encounter
--- OUTSIDE RECORDS SUMMARY | 2017-06-29 18:48 | XMS REPORT | Encounter Summary ---
Author Author [facility] Organization [facility] Address Unknown Phone Unavailable Care Team Providers Care Rod Greaser Name Role Phone PCP Unavailable Reason for Visit * Reason Comments Error Encounter Details Date Type Department Care Team Description 04/10/2017 Telephone [facility] Randy Recio MD Error Physicians - Urology [address] [facility] [address]ND FLOOR [address] [place] [address] OFFICE BLDG [phone] [place] [address] Social History Tobacco Use Types [...]
--- OUTSIDE RECORDS SUMMARY | 2017-06-29 18:48 | XMS REPORT | Encounter Summary ---
Author Author [facility] Organization [facility] Address Unknown Phone Unavailable Care Team Providers Care Reprographics Associate Name Role Phone PCP Unavailable Reason for Visit * Reason Comments Medication Refill Encounter Details Date Type Department Care Team Description 05/07/2017 Refill [facility] Jessica Valera ARNP Physicians - Internal [address] [facility] Medicine [address] [facility] [place] [address] OFFICE BLDG [phone] [address] [address] Social History Tobacco Use Types [...]
--- OUTSIDE RECORDS SUMMARY | 2017-06-29 18:48 | XMS REPORT | Encounter Summary ---
Author Author [facility] Organization [facility] Address Unknown Phone Unavailable Care Team Providers Care Tuber Machine Operator Helper Name Role Phone PCP Unavailable Encounter Details Date Type Department Care Team Description 04/13/2017 Hospital [facility] Encounter Hospital Radiology [address] [place] [address] Social History Tobacco Use [...] as needed. estradiol (ESTRACE) 2 mg Take 3 mg by mouth at tablet bedtime daily. fluoxetine (PROZAC) 20 mg Take 2 capsules by mouth 90 capsule 3 2016 capsule at bedtime daily. HYDROcodone/acetaminophen Take 1 tablet by mouth 20 tablet 0 2016 (NORCO) 7.5/325 mg every 6 hours as needed tabletIndications: PAIN for Pain Indications: PAIN polyethylene glycol 3350 Take 1 packet by mouth 12 each 5 04/11/2017 (MIRALAX) 17 g daily. Indications: packetIndications: CONSTIPATION constipation rOPINIRole (REQUIP) 4 mg Take 4 mg by mouth at tablet bedtime daily. senna/docusate Take 1 tablet by mouth 15 tablet 0 04/11/2017 (SENOKOT-S) 8.6/50 mg twice daily. Indications: tabletIndications: CONSTIPATION constipation ondansetron (ZOFRAN ODT) DISSOLVE ONE TABLET IN 60 Tab 0 12/25/2016 05/07/2017 8 mg rapid dissolve MOUTH EVERY 8 HOURS tablet NEEDED FOR NAUSEA; NEED GI OFFICE VISIT FOR ANY ADDITIONAL REFILLS traMADol (ULTRAM) 50 mg Take 1-2 tablets by mouth 30 tablet 0 201606/03/2017 tabletIndications: PAIN every 6 hours as needed. Indications: PAIN as of this encounter Plan of Treatment Date Type Specialty Care Team Description 05/06/2017 Procedure Pass Oncology 05/06/2017 Procedure Pass Oncology as of this encounter Results * CT ABD/PEL EXTERNAL IMAGING (04/13/2017) Narrative This order has been auto finalized and does not contain a result. in this encounter Visit Diagnoses Diagnosis Diagnosis unknown Other unknown and unspecified cause of morbidity or mortality in this encounter
--- OUTSIDE RECORDS SUMMARY | 2017-06-29 18:48 | XMS REPORT | Encounter Summary ---
Author Author [facility] Organization [facility] Address Unknown Phone Unavailable Care Team Providers Care Scroll Assembler Name Role Phone PCP Unavailable Reason for Visit * Auth/Cert Status Reason Specialty Diagnoses / Referred By Referred To Procedures Contact Contact Diagnoses Renal mass unknown P rocedures NEPHRECTOMY LAPAROSCOPY Encounter Details Date Type Department Care Team Description 04/10/2017 Hospital Surg Onc/Uro/Boiler Shop Supervisor Onc Abel Heart MD Renal mass - Encounter [address] 04/11/2017 [place] [address] [address] [place] [address] [phone] Social History Tobacco Use Types Packs/Day Years [...] or concerns regarding your hospital stay. Call [phone] You may have questions about your hospital stay after you get home. From 8 AM to 4 PM Saturday through Saturday, please call Dr. Heart's elementary secretary to have the nurse practitioner paged at . Dr. Heart's elementary secretary can also assist with questions regarding your follow up appointment. If calling after hours or with urgent questions, please call and ask for the urology resident title i paraprofessional. In case of an emergency, please report to your nearest emergency department and contact us on the way. Discharging attending physician: ABEL HEART [[id number]] Regular Diet You have no dietary restriction. [...] Heart at 9:45 [facility] Provider ABEL HEART [[id number]] Location [facility] Appointment date: 05/06/2017 Opioid (Narcotic) Safety [...] Scheduled appointments: May 06, 2017 9:00 AM CERAMIC COATER MACHINE (Arrive by 8:45 AM) Phlebotomy Draw with CC PHLEBOTOMY CHAIR [facility] - [facility] Exam (--) [address] [facility] [address] May 06, 2017 9:45 AM CERAMIC COATER MACHINE (Arrive by 9:30 AM) Post-Op with Abel Heart MD [facility] Exam (--) [address] [facility] [address] Jun 03, 2017 10:30 AM CERAMIC COATER MACHINE Return Patient with Randy Nunez MD [facility] Physicians - Internal Medicine ([facility]) [address] [facility] [address] [facility] [address] Pending items needing follow up: None Signed: [...] (Aleve) You may use acetaminophen (Tylenol) and [place] Morning of surgery On the morning of surgery, do NOT take these medications: Remaining vitamins/supplements Ointments/creams/lotions On the morning of surgery, take ONLY these medications with a sip (1-2 ounces) of water: [place] If needed Zofran if needed Other information Before surgery, please contact TIMUR Barajas with any medicine updates or questions. E-mail: [email or web address] Before going home from the [...] -- located next to admissions in the [facility]. If you cannot obtain this soap, use [...] and any other valuables at home. The [facility] is not responsible for the loss or breakage of personal items. Remove nail turks and caicos islander, makeup and all jewelry (including piercings) before coming to the hospital. The morning of your procedure: brush your teeth and tongue do not smoke do not shave the area where you will have surgery What to bring to the hospital ID/ Insurance Card Global Chief Creative Officer card Official documents for legal guardianship Copy of your Living Will, Advanced Directives, and/or Durable Power of Livestock Buyer Small bag with a few personal belongings [...] call by 4:00 you may call or [phone] after 4:30. Notify us at [facility]: if you need to cancel your procedure if you are going to be late Arrival at the [facility]: Park in the [facility] located directly across from the main entrance to the hospital. Copywriting Intern parking is available from 7 AM to [...] Vann MD PGY-1 Urology Please page urology title i paraprofessional with questions ATTESTATION I personally performed the [...] Intake/Output Summary (Last 24 hours) at 04/11/17 0595 Last data filed at 04/11/17 0328 Gross [...] monitor and adjust therapy as needed. Bruna Fletcher PHARMD 04/10/2017 * Mariana Gallo, RT - [...] Date: 04/10/2017 Guillermo AC=Airway clearance AM=Aerosolized medication BA=[place] aerosol DB&C=Deep breathe & cough FEV1=Forced expiratory volume in first second) IC=Inspiratory capacity LE=Lung expansion MDI=Metered dose inhaler Neb=Nebulizer O2=Oxygen Oxim=Oximetry PEFR=Peak expiratory flow rate TERRAZZO WORKER APPRENTICE=Rapid Response Team * Venecia Wheeler RN - [...] for 7 days. May take Zofran and [place] day of surgery. NPO after 11:00 pm [...] was induced. The patient was intubated. A 16-Gabonese Romero catheter was placed per urethra under [...] 04/10/2017 in this encounter Plan of Treatment Date Type Specialty Care Team Description 05/06/2017 Procedure Pass Oncology 05/06/2017 Procedure Pass Oncology Name Priority Associated Diagnoses Date/Time POC ANES US GUIDED NERVE BLOCK Routine 04/10/2017 3:19 PM CDT Name Priority Associated Diagnoses Order Schedule SURGICAL PATHOLOGY Routine Renal mass ONCE for 1 Occurrences starting 04/10/2017 POC ANES US GUIDED NERVE BLOCK Routine ONE TIME for 1 Occurrences starting 04/10/2017 until 04/10/2017 as of this encounter Procedures Procedure Name [...] Performing Laboratory [facility] [address] [place] [address] * BASIC METABOLIC PANEL (04/11/2017 4:41 AM) [...] Performing Laboratory [facility] [address] [place] [address] * SURGICAL PATHOLOGY (04/10/2017 3:00 PM) Component Value Ref Range PATHOLOGY REPORT [facility] [email or web address] Shaylee Black MD, PhD, Director of Anatomic Pathology Department of Pathology and Laboratory Medicine [address] [place] [address] Surgical Pathology Office: [phone] SURGICAL PATHOLOGY REPORT NAME: JANETH DELGADO SURG PATH #: [id number] MR #: [id number] SPECIMEN CLASS: SR BILLING #: [id number] ALT ID #: LOCATION: 53 DATE OF [...] status and/or prior pathology. Pursuant to the Rn Obgyn Program at the [facility] Pathology Department, selected slides from [...] is inked black. Lymph nodes identified: No Seater Assembler sections of the specimen are submitted as follows: A1-A2 Vascular and ureteral margins. A3 Tumor to nearest capsule/Gerota's fascia including surrounding perinephric fat. A4 Tumor to adjacent normal kidney. A5 Tumor to renal pelvis. A6-A8 Tumor to renal sinus fat. id/04/10/2017 Specimen Performing Laboratory [facility] RESULTS * BLOOD TYPE CONFIRMATION - ORDER ONLY IF REQUESTED BY LAB (04/10/2017 9:44 AM) Component Value Ref Range ABO/RH(D) A NEG Specimen Performing Laboratory [facility] [address] [place] [address] * TYPE & CROSSMATCH (04/10/2017 9:29 AM) Component Value Ref Range Units Ordered 0 Crossmatch Expires 04/13/2017 Record Check 2ND TYPE REQUIRED ABO/RH(D) A NEG Antibody Screen NEG Electronic Crossmatch YES Specimen Performing Laboratory [facility] [address] [place] [address] * BASIC METABOLIC PANEL (04/10/2017 9:29 AM) [...] Performing Laboratory [facility] [address] [place] [address] * CBC (04/10/2017 9:29 AM) Component Value [...] Performing Laboratory [facility] [address] [place] [address] in this encounter Visit Diagnoses Diagnosis Left renal mass - Primary Unspecified disorder of kidney and ureter Renal mass Unspecified disorder of kidney and [...] DAILY, First dose 20:17 CDT Tissue on 10/25/17 at 2100, Until Discontinued, For patients undergoing [...] surgical incision vancomycin (VANCOCIN) 1,750 mg in - 04/10/2017 1,750 mg 233 mL/hr dextrose 5% (D5W) IVPB Bag 23:11 CDT 1,750 mg, Intravenous, 350 mL, Administer over 90 Minutes, EVERY 12 HOURS, 2 doses, First dose on Sat04/10/17 at 2300, Last dose on 04/11/17 at 1100, Note Pharmacokinetic Monitoring: Please record infusion start time (Action=Given) and stop time (Action=Completed) of dose when blood levels are drawn. Given - New Bag 04/11/2017 1,750 mg 233 mL/hr 11:30 CDT in this encounter
--- OUTSIDE RECORDS SUMMARY | 2017-06-29 18:48 | XMS REPORT | Encounter Summary ---
Author Author [facility] Organization [facility] Address Unknown Phone Unavailable Care Team Providers Care Physical Biochemist Name Role Phone PCP Unavailable Encounter Details Date Type Department Care Team Description 04/15/2017 Ancillary Rad Outpatient, Radiologist Diagnosis unknown Orders [address] [place], [place] [id number] Social History Tobacco Use Types Packs/Day Years [...]
--- OUTSIDE RECORDS SUMMARY | 2017-06-29 18:48 | XMS REPORT | Encounter Summary ---
Author Author [facility] Organization [facility] Address Unknown Phone Unavailable Care Team Providers Care Home Economist Name Role Phone PCP Unavailable Reason for Visit * Reason Comments Abdominal pain Encounter Details Date Type Department Care Team Description 04/29/2017 Telephone [facility] Abel Poe MD Abdominal pain [facility] Exam [address] [place] [address] [place] [address] [phone] Social History Tobacco Use Types Packs/Day Years [...] Maddi Cannon RN - 04/29/2017 3:09 PM METAL WASHING MACHINE OPERATOR Pt paged nurse with c/o sharp pain [...] transportation. in this encounter Plan of Treatment Date Type Specialty Care Team Description 05/06/2017 Procedure Pass Oncology 05/06/2017 Procedure Pass Oncology as of this encounter Visit Diagnoses Not on filein this encounter
--- OUTSIDE RECORDS SUMMARY | 2017-06-29 18:48 | XMS REPORT | Encounter Summary ---
Author Author [facility] Organization [facility] Address Unknown Phone Unavailable Care Team Providers Care Preventive Maintenance Coordinator Name Role Phone PCP Unavailable Reason for Visit * Reason Comments General Question Encounter Details Date Type Department Care Team Description 04/22/2017 Telephone [facility] Gricel Siegel MD General Question Physicians - Urology [address] [place] [address] MED [phone] [address] Social History Tobacco Use Types [...] Gricel Siegel MD - 04/22/2017 7:49 AM COOK FROZEN DESSERT Call back placed to patient. She is [...]
--- OUTSIDE RECORDS SUMMARY | 2017-06-29 18:48 | XMS REPORT | Encounter Summary ---
Author Author [facility] Organization [facility] Address Unknown Phone Unavailable Care Team Providers Care Chief Strategy Officer Name Role Phone PCP Unavailable Reason for Visit * Reason Comments Results Encounter Details Date Type Department Care Team Description 04/15/2017 Telephone [facility] Abel Poe MD Results [address] [place] [address] Social History Tobacco Use Types [...] ok. in this encounter Plan of Treatment Date Type Specialty Care Team Description 05/06/2017 Procedure Pass Oncology 05/06/2017 Procedure Pass Oncology as of this encounter Visit Diagnoses Not on filein this encounter
--- OUTSIDE RECORDS SUMMARY | 2017-06-29 18:48 | XMS REPORT | Encounter Summary ---
Author Author [facility] Organization [facility] Address Unknown Phone Unavailable Care Team Providers Care Chief Of Staff Name Role Phone PCP Unavailable Encounter Details Date Type Department Care Team Description 04/23/2017 Orders Only [facility] Abel Poe MD Renal mass (Primary Dx) [facility] Exam [address] [place] [address] [place] [address] [phone] Social History Tobacco Use Types Packs/Day Years [...] Oncology as of this encounter Visit Diagnoses Diagnosis Renal mass - Primary Unspecified disorder of kidney and ureter in this encounter
--- OUTSIDE RECORDS SUMMARY | 2017-06-29 18:49 | XMS REPORT | Encounter Summary ---
Author Author [facility] Organization [facility] Address Unknown Phone Unavailable Care Team Providers Care Assembler Musical Equipment Name Role Phone PCP Unavailable Reason for Visit * Auth/Cert Status Reason Specialty Diagnoses / Referred By Referred To Procedures Contact Contact Diagnoses Renal mass unknown P rocedures NEPHRECTOMY LAPAROSCOPY Encounter Details Date Type Department Care Team Description 04/10/2017 Surgery Main Operating Room Abel Heart MD NEPHRECTOMY LAPAROSCOPY [address] [place] [address] [address] [place] [address] Social History Tobacco Use Types [...] 04/10/2017 Discharge date: 04/11/2017 Attending Physician: Dr. eHart Service: Surgery-Urology Physician Summary completed by: Randy [...] or concerns regarding your hospital stay. Call [phone] You may have questions about your hospital stay after you get home. From 8 AM to 4 PM Saturday through Saturday, please call Dr. Heart's secretary of state to have the nurse practitioner paged at . Dr. Heart's secretary of state can also assist with questions regarding your follow up appointment. If calling after hours or with urgent questions, please call and ask for the urology resident partition setter. In case of an emergency, please report to your nearest emergency department and contact us on the way. Discharging attending physician: ABEL HEART [[id number]] Regular Diet You have no dietary restriction. [...] Dr. Heart at 9:45 Provider ABEL HEART [[id number]] Location [facility] Appointment date: 05/06/2017 Opioid (Narcotic) Safety [...] Scheduled appointments: May 06, 2017 9:00 AM SOFTWARE CONFIGURATION MANAGER (Arrive by 8:45 AM) Phlebotomy Draw with CC PHLEBOTOMY CHAIR [facility] Exam (--) [address] [facility] [id number] May 06, 2017 9:45 AM SOFTWARE CONFIGURATION MANAGER (Arrive by 9:30 AM) Post-Op with Abel Heart MD [facility] Exam (--) [address] [facility] [id number] Jun 03, 2017 10:30 AM SOFTWARE CONFIGURATION MANAGER Return Patient with Randy Nunez MD [facility] ([facility]) [address] [facility] [address] Pending items needing follow up: None Signed: [...] (Aleve) You may use acetaminophen (Tylenol) and [place] Morning of surgery On the morning of surgery, do NOT take these medications: Remaining vitamins/supplements Ointments/creams/lotions On the morning of surgery, take ONLY these medications with a sip (1-2 ounces) of water: [place] If needed Zofran if needed Other information Before surgery, please contact TIMUR Barajas with any medicine updates or questions. E-mail: [email or web address] Before going home from the [...] or breakage of personal items. Remove nail khmer, makeup and all jewelry (including piercings) before coming to the hospital. The morning of your procedure: brush your teeth and tongue do not smoke do not shave the area where you will have surgery What to bring to the hospital ID/ Insurance Card Histologist Technologist card Official documents for legal guardianship Copy of your Living Will, Advanced Directives, and/or Durable Power of Life Science Taxonomist Small bag with a few personal belongings [...] a call by 4:00 you may call [phone] or [phone] after 4:30. Notify us at [facility]: if you need to cancel your procedure if you are going to be late Arrival at the [facility]: Park in the [place] [facility] located directly across from the main entrance to the hospital. [employer] We[employer] parking is available from 7 AM to [...] Vann MD PGY-1 Urology Please page urology partition setter with questions ATTESTATION I personally performed the [...] Intake/Output Summary (Last 24 hours) at 04/11/17 8696 Last data filed at 04/11/17327 Gross per [...] Date: 04/10/2017 Guillermo AC=Airway clearance AM=Aerosolized medication BA=Sylva aerosol DB&C=Deep breathe & cough FEV1=Forced expiratory volume in first second) IC=Inspiratory capacity LE=Lung expansion MDI=Metered dose inhaler Neb=Nebulizer O2=Oxygen Oxim=Oximetry PEFR=Peak expiratory flow rate STEEL DIE ENGRAVER=Rapid Response Team * Venecia Wheeler RN - [...] for 7 days. May take Zofran and [place] day of surgery. NPO after 11:00 pm [...] Left SURGICAL PATHOLOGY Abel Heart MD 04/10/2017 [id number] Randy Recio MD ATTESTATION I performed this [...] Performing Laboratory [facility] [address] [place] [address] * BASIC METABOLIC PANEL (04/11/2017 4:41 AM) [...] Performing Laboratory [facility] [address] [place] [address] * SURGICAL PATHOLOGY (04/10/2017 3:00 PM) Component Value Ref Range PATHOLOGY REPORT [facility] [email or web address] Shaylee Black MD, PhD, Director of Anatomic Pathology Department of Pathology and Laboratory Medicine [address] [place] [id number] Surgical Pathology Office: [phone] SURGICAL PATHOLOGY REPORT NAME: JANETH DELGADO SURG PATH #: [id number] MR #: [id number] SPECIMEN CLASS: SR BILLING #: [id number] ALT ID #: LOCATION: 53 DATE OF [...] status and/or prior pathology. Pursuant to the Ad Setter Program at the [facility] [...] is inked black. Lymph nodes identified: No Production Operator sections of the specimen are submitted as follows: A1-A2 Vascular and ureteral margins. A3 Tumor to nearest capsule/Gerota's fascia including surrounding perinephric fat. A4 Tumor to adjacent normal kidney. A5 Tumor to renal pelvis. A6-A8 Tumor to renal sinus fat. fl/04/10/2017 Specimen Performing Laboratory [facility] RESULTS * BLOOD TYPE CONFIRMATION - ORDER ONLY IF REQUESTED BY LAB (04/10/2017 9:44 AM) Component Value Ref Range ABO/RH(D) A NEG Specimen Performing Laboratory [facility] [address] [place] [address] * TYPE & CROSSMATCH (04/10/2017 9:29 AM) Component Value Ref Range Units Ordered 0 Crossmatch Expires 04/13/2017 Record Check 2ND TYPE REQUIRED ABO/RH(D) A NEG Antibody Screen NEG Electronic Crossmatch YES Specimen Performing Laboratory [facility] [address] [place] [id number] * BASIC METABOLIC PANEL (04/10/2017 9:29 AM) [...] Specimen Performing Laboratory [facility] [address] [place] [id number] * CBC (04/10/2017 9:29 AM) Component Value [...] Performing Laboratory [facility] [address] [place] [address] in this encounter Visit Diagnoses Diagnosis Renal [...] mg, Rectal, TWICE DAILY, First dose on Viviana 04/11/17 at 0900, Until Discontinued, Hold for loose stools bupivacaine (MARCAINE) 0.25 % injection Given 04/10/2017 40 mL INTRA-PROCEDURE MED, Starting Sat 14:07 CDT 04/10/17 at 1407, Until Sat04/10/17 at 1730, Intra-op dextrose 5 % & 0.45% NaCl with KCl 20 Given - New 04/10/2017 125 mL/ hr mEq/L infusion Bag 16:20 CDT 1,000 mL, Intravenous, at 125 mL/hr, CONTINUOUS, Starting Sat04/10/17 at 1600, Until Viviana 04/11/17 at 0611, Admission/Obs/Extended Recovery Given - New [...] vancomycin (VANCOCIN) 1,750 mg in Given - 04/10/2017 1,750 mg 233 mL/hr dextrose 5% (D5W) IVPB Bag 11:05 CDT 1,750 mg (rounded from 1,711.5 mg=15 mg/kg 114.1 kg), Intravenous, 350 mL, Administer over 90 Minutes, ONCE, 1 dose, Sat04/10/17 at 1100, To be given <120 minutes prior to surgical incision vancomycin (VANCOCIN) 1,750 mg in Given - 04/10/2017 1,750 mg 233 mL/hr dextrose [...]
--- OUTSIDE RECORDS SUMMARY | 2017-06-29 18:49 | XMS REPORT | Encounter Summary ---
Author Author [facility] Organization [facility] Address Unknown Phone Unavailable Care Team Providers Care Podiatry Doctor Name Role Phone PCP Unavailable Encounter Details Date Type Department Care Team Description 04/10/2017 Procedure Pass Main Operating Room [address] [place] [address] Social History Tobacco Use Types [...]
--- OUTSIDE RECORDS SUMMARY | 2017-06-29 18:49 | XMS REPORT | Encounter Summary ---
Author Author [facility] Organization [facility] Address Unknown Phone Unavailable Care Team Providers Care Professional Bass Fisherman Name Role Phone PCP Unavailable Reason for Visit * Auth/Cert Status Reason Specialty Diagnoses / Referred By Referred To Procedures Contact Contact Diagnoses Renal mass unknown P rocedures NEPHRECTOMY LAPAROSCOPY Encounter Details Date Type Department Care Team Description 04/10/2017 Anesthesia Main Operating Room Tiarra ParvezMONIE [address] [place] [address] Social History Tobacco Use Types [...] injury, allergic reactions, PONV, aspiration, respiratory failure, SC, CVA discussed with patient who reports understanding and consents to anesthetic plan. Araseli Kuhn M.D. ) Informed Consent Anesthetic plan and risks discussed with patient and mother. Use of blood products discussed with patient; consented to blood products. Plan discussed with: anesthesiologist, surgeon/proceduralist, BRANCH OPERATIONS MANAGER and SRNA. in this encounter Miscellaneous Notes * Addendum Note - Tish Kuhn MD - 04/19/2017 8:53 AM CDT Formatting of this note may be different from the original. Addendum created 04/19/17 0853 by Tish Kuhn MD Anesthesia Attestations filed, Anesthesia Staff edited in this encounter Plan of Treatment Date Type Specialty Care Team Description 05/06/2017 Procedure Pass Oncology 05/06/2017 Procedure Pass Oncology as of this encounter Results * ANESTHESIA PERIPHERAL [...] 20 Bag 09:37 CDT mL/hr, CONTINUOUS, Starting 04/10/17 at 0915, Until Viviana 04/11/17 at 0611, [...] mg Intravenous, INTRA-PROCEDURE MED, 11:55 CDT Starting 04/10/17 at 1155, Until Sat04/10/17 at 1449, Anesthesia Intra-op Given 04/10/2017 20 mg 12:34 CDT Given 04/10/2017 10 mg 13:45 CDT sugammadex (BRIDION) injection Given 04/10/2017 230 mg Intravenous, INTRA-PROCEDURE MED, 14:31 CDT Starting Sat04/10/17 at 1431, Until Sat04/10/17 at 1449, Anesthesia Intra-op in this encounter
--- OUTSIDE RECORDS SUMMARY | 2017-06-29 19:48 | XMS REPORT | Continuity of Care Document ---
Author Author [facility] Address Unknown Phone Unavailable Allergies Active Description Code Type Severity Reaction Onset Reported/Identified Relationship to Patient Clinical Status Yes Demerol Drug Allergy N/A N/A 08/04/2008 Yes fentanyl Drug Allergy N/A N/A 08/04/2008 Yes Penicillins Drug Allergy N/A N/A 08/04/2008 Yes Demerol Drug Allergy 08/04/2008 Yes fentanyl Drug Allergy 08/04/2008 Yes Penicillins Drug Allergy 08/04/2008 Yes fentanyl [id number] Drug Allergy Unknown N/A 05/23/2016 Yes meperidine [id number] Drug Allergy Unknown N/A 05/23/2016 Yes penicillin G [id number] Drug Allergy Unknown N/A 05/23/2016 Medications There is no data. Problems Date Dx Coded Attending Type Code Diagnosis Diagnosed By 08/04/2008 REGINO BOYD DDS 577.9 PANCREATITIS 08/04/2008 REGINO BOYD DDS N 780.79 FATIGUE 08/04/2008 REGINO BOYD DDS N 784.0 Headache 08/04/2008 577.9 PANCREATITIS 08/04/2008 780.79 FATIGUE 08/04/2008 784.0 Headache 08/04/2008 BRENNA LOBATO APRN R 577.9 PANCREATITIS 08/04/2008 CRISTINO LOBATO APRNIA R 780.79 FATIGUE 08/04/2008 BRENNA LOBATO APRN R 784.0 Headache 08/04/2008 ROLON DO EMIL K 577.9 PANCREATITIS 08/04/2008 ROLON , EMIL K 780.79 FATIGUE 08/04/2008 ROLON , EMIL K 784.0 Headache 08/04/2008 STELLA PARISH, ELLY 577.9 PANCREATITIS 08/04/2008 STELLA PARISH, ELLY 780.79 FATIGUE 08/04/2008 STELLA PARISH, ELLY 784.0 Headache 08/04/2008 CARMEN GIBBS MD N 577.9 PANCREATITIS 08/04/2008 CARMEN GIBBS MD N 780.79 FATIGUE 08/04/2008 CARMEN GIBBS MD N 784.0 Headache 08/04/2008 CARMEN GIBBS MD N 577.9 PANCREATITIS 08/04/2008 CARMEN GIBBS MD N 780.79 FATIGUE 08/04/2008 CARMEN GIBBS MD N 784.0 Headache 08/04/2008 JESSICA DDS, RAQUEL M 577.9 PANCREATITIS 08/04/2008 JESSICA DDS, RAQUEL M 780.79 FATIGUE 08/04/2008 JESSICA DDS, RAQUEL M 784.0 Headache 08/04/2008 ROLON DO, EMIL K 577.9 PANCREATITIS 08/04/2008 ROLON DO, EMIL K 780.79 FATIGUE 08/04/2008 ROLON DO, EMIL K 784.0 Headache 08/04/2008 CARMEN GIBBS MD N 577.9 PANCREATITIS 08/04/2008 CARMEN GIBBS MD N 780.79 FATIGUE 08/04/2008 CARMEN GIBBS MD N 784.0 Headache 08/04/2008 CARMEN GIBBS MD N 577.9 PANCREATITIS 08/04/2008 CARMEN GIBBS MD N 780.79 FATIGUE 08/04/2008 CARMEN GIBBS MD N 784.0 Headache 08/04/2008 OSMAN ALVAREZ APRN 577.9 PANCREATITIS 08/04/2008 OSMAN ALVAREZ APRN 780.79 FATIGUE 08/04/2008 OSMAN ALVAREZ APRN 784.0 Headache 08/04/2008 ROLON DO, EMIL K 577.9 PANCREATITIS 08/04/2008 ROLON DO, EMIL K 780.79 FATIGUE 08/04/2008 ROLON DO, EMIL K 784.0 Headache 08/04/2008 ROLON DO, EMIL K 577.9 PANCREATITIS 08/04/2008 ROLON DO, EMIL K 780.79 FATIGUE 08/04/2008 ROLON DO, EMIL K 784.0 Headache 08/04/2008 ROLON DO, EMIL K 577.9 PANCREATITIS 08/04/2008 ROLON DO, EMIL K 780.79 FATIGUE 08/04/2008 ROLON DO, EMIL K 784.0 Headache 08/04/2008 KIM TYPO MACHINE OPERATOR, OSMAN T 577.9 PANCREATITIS 08/04/2008 KIM TYPO MACHINE OPERATOR, OSMAN T 780.79 FATIGUE 08/04/2008 KIM TYPO MACHINE OPERATOR OSMAN T 784.0 Headache 08/04/2008 ROLON DO, EMIL K 577.9 PANCREATITIS 08/04/2008 ROLON DO, EMIL K 780.79 FATIGUE 08/04/2008 ROLON DO, EMIL K 784.0 Headache 08/04/2008 ROLON DO, EMIL K 577.9 PANCREATITIS 08/04/2008 ROLON DO, EMIL K 780.79 FATIGUE 08/04/2008 ROLON DO, EMIL K 784.0 Headache 08/04/2008 LUIS ALFREDO TYPO MACHINE OPERATOR, BRENNA R 577.9 PANCREATITIS 08/04/2008 LUIS ALFREDO TYPO MACHINE OPERATOR, BRENNA R 780.79 FATIGUE 08/04/2008 LUIS ALFREDO TYPO MACHINE OPERATOR, BRENNA R 784.0 Headache 08/04/2008 MAD TYPO MACHINE OPERATOR, ANSON L 577.9 PANCREATITIS 08/04/2008 MAD TYPO MACHINE OPERATOR, ANSON L 780.79 FATIGUE 08/04/2008 MAD TYPO MACHINE OPERATOR, ANSON L 784.0 Headache 08/04/2008 LUIS ALFREDO YUN, BRENNA R 577.9 PANCREATITIS 08/04/2008 LUIS ALFREDO TYPO MACHINE OPERATOR, BRENNA R 780.79 FATIGUE 08/04/2008 LUIS ALFREDO YUN, BRENNA R 784.0 Headache 08/04/2008 SAI PARISH, CARMEN N 577.9 PANCREATITIS 08/04/2008 CARMEN GIBBS MD N 780.79 FATIGUE 08/04/2008 CARMEN GIBBS MD N 784.0 Headache 08/04/2008 ROLON DO, EMIL K 577.9 PANCREATITIS 08/04/2008 ROLON DO, EMIL K 780.79 FATIGUE 08/04/2008 ROLON DO, EMIL K 784.0 Headache 08/04/2008 MICHELINE TYPO MACHINE OPERATOR, RAQUEL R 577.9 PANCREATITIS 08/04/2008 MICHELINE TYPO MACHINE OPERATOR, RAQUEL R 780.79 FATIGUE 08/04/2008 MICHELINE TYPO MACHINE OPERATOR, RAQUEL R 784.0 Headache 08/04/2008 CARMEN GIBBS MD N 577.9 PANCREATITIS 08/04/2008 CARMEN GIBBS MD N 780.79 FATIGUE 08/04/2008 CARMEN GIBBS MD N 784.0 Headache 08/04/2008 LOBATO TYPO MACHINE OPERATOR, BRENNA R 577.9 PANCREATITIS 08/04/2008 LOBATO TYPO MACHINE OPERATOR, BRENNA R 780.79 FATIGUE 08/04/2008 LBOATO TYPO MACHINE OPERATOR, BRENNA R 784.0 Headache 08/04/2008 MICHELINE TYPO MACHINE OPERATOR, RAQUEL R 577.9 PANCREATITIS 08/04/2008 MICHELINE TYPO MACHINE OPERATOR, RAQUEL R 780.79 FATIGUE 08/04/2008 MICHELINE TYPO MACHINE OPERATOR, RAQUEL R 784.0 Headache 08/04/2008 CARMEN GIBBS MD N 577.9 PANCREATITIS 08/04/2008 CARMEN GIBBS MD N 780.79 FATIGUE 08/04/2008 CARMEN GIBBS MD N 784.0 Headache 08/04/2008 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, ANSON L 577.9 PANCREATITIS 08/04/2008 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, ANSON L 780.79 FATIGUE 08/04/2008 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, ANSON L 784.0 Headache 08/04/2008 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, ANSON L 577.9 PANCREATITIS 08/04/2008 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, ANSON L 780.79 FATIGUE 08/04/2008 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, ANSON L 784.0 Headache 08/04/2008 MICHELINE TYPO MACHINE OPERATOR, RAQUEL R 577.9 PANCREATITIS 08/04/2008 MICHELINE TYPO MACHINE OPERATOR, RAQUEL R 780.79 FATIGUE 08/04/2008 MICHELINE TYPO MACHINE OPERATOR, RAQUEL R 784.0 Headache 08/04/2008 WHITE DDS, ELLIOT J 577.9 PANCREATITIS 08/04/2008 WHITE DDS, ELLIOT J 780.79 FATIGUE 08/04/2008 WHITE DDS, ELLIOT J 784.0 Headache 08/04/2008 CARMEN GIBBS MD N 577.9 PANCREATITIS 08/04/2008 CARMEN GIBBS MD N 780.79 FATIGUE 08/04/2008 CARMEN GIBBS MD N 784.0 Headache 08/04/2008 ROLON DO, EMIL K 577.9 PANCREATITIS 08/04/2008 ROLON DO, EMIL K 780.79 FATIGUE 08/04/2008 ROLON DO, EMIL K 784.0 Headache 08/04/2008 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, ANSON L 577.9 PANCREATITIS 08/04/2008 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, ANSON L 780.79 FATIGUE 08/04/2008 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, ANSON L 784.0 Headache 08/04/2008 CARMEN GIBBS MD N 577.9 PANCREATITIS 08/04/2008 CARMEN GIBBS MD N 780.79 FATIGUE 08/04/2008 CARMEN GIBBS MD N 784.0 Headache 08/04/2008 CARMEN GIBBS MD N 577.9 PANCREATITIS 08/04/2008 CARMEN GIBBS MD N 780.79 FATIGUE 08/04/2008 CARMEN GIBBS MD N 784.0 Headache 08/04/2008 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, ANSON L 577.9 PANCREATITIS 08/04/2008 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, ANSON L 780.79 FATIGUE 08/04/2008 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, ANSON L 784.0 Headache 08/04/2008 GONZALES GAMING EMIL K 577.9 PANCREATITIS 08/04/2008 SUDHIR ROLON DOA K 780.79 FATIGUE 08/04/2008 SUDHIR ROLON DOA K 784.0 Headache 12/20/2008 ERGINO BOYD DDS 794.6 Endocrine Laboratory Tests Nonspecific Abnormal Findings 12/20/2008 794.6 Endocrine Laboratory Tests Nonspecific Abnormal Findings 12/20/2008 BRENNA LOBATO APRN 794.6 Endocrine Laboratory Tests Nonspecific Abnormal Findings 12/20/2008 EMIL ROLON DO K 794.6 Endocrine Laboratory Tests Nonspecific Abnormal Findings 12/20/2008 ELLY DOUGLAS MD 794.6 Endocrine Laboratory Tests Nonspecific Abnormal Findings 12/20/2008 CARMEN GIBBS MD 794.6 Endocrine Laboratory Tests Nonspecific Abnormal Findings 12/20/2008 CARMEN GIBBS MD 794.6 Endocrine Laboratory Tests Nonspecific Abnormal Findings 12/20/2008 RAQUEL LOPEZ DDS 794.6 Endocrine Laboratory Tests Nonspecific Abnormal Findings 12/20/2008 EIML ROLON DO K 794.6 Endocrine Laboratory Tests Nonspecific Abnormal Findings 12/20/2008 CARMEN GIBBS MD 794.6 Endocrine Laboratory Tests Nonspecific Abnormal Findings 12/20/2008 CARMEN GIBBS MD 794.6 Endocrine Laboratory Tests Nonspecific Abnormal Findings 12/20/2008 OSMAN ALVAREZ APRN 794.6 Endocrine Laboratory Tests Nonspecific Abnormal Findings 12/20/2008 ROLON DO, EMIL K 794.6 Endocrine Laboratory Tests Nonspecific Abnormal Findings 12/20/2008 ROLON DO, EMIL K 794.6 Endocrine Laboratory Tests Nonspecific Abnormal Findings 12/20/2008 ROLON DO, EMIL K 794.6 Endocrine Laboratory Tests Nonspecific Abnormal Findings 12/20/2008 OSMAN ALVAREZ APRN T 794.6 Endocrine Laboratory Tests Nonspecific Abnormal Findings 12/20/2008 ROLON DO, EMIL K 794.6 Endocrine Laboratory Tests Nonspecific Abnormal Findings 12/20/2008 ROLON DO, EMIL K 794.6 Endocrine Laboratory Tests Nonspecific Abnormal Findings 12/20/2008 BRENNA LOBATO APRN R 794.6 Endocrine Laboratory Tests Nonspecific Abnormal Findings 12/20/2008 ANSON WADE APRN L 794.6 Endocrine Laboratory Tests Nonspecific Abnormal Findings 12/20/2008 CRISTINO LOBATO APRNIA R 794.6 Endocrine Laboratory Tests Nonspecific Abnormal Findings 12/20/2008 CARMEN GIBBS MD 794.6 Endocrine Laboratory Tests Nonspecific Abnormal Findings 12/20/2008 ROLON DO, EMIL K 794.6 Endocrine Laboratory Tests Nonspecific Abnormal Findings 12/20/2008 MALACHI TOBIAS APRNINA R 794.6 Endocrine Laboratory Tests Nonspecific Abnormal Findings 12/20/2008 CARMEN GIBBS MD 794.6 Endocrine Laboratory Tests Nonspecific Abnormal Findings 12/20/2008 BRENNA LOBATO APRN R 794.6 Endocrine Laboratory Tests Nonspecific Abnormal Findings 12/20/2008 MALACHI TOBIAS APRNINA R 794.6 Endocrine Laboratory Tests Nonspecific Abnormal Findings 12/20/2008 CARMEN GIBBS MD 794.6 Endocrine Laboratory Tests Nonspecific Abnormal Findings 12/20/2008 ANSON WADE APRN L 794.6 Endocrine Laboratory Tests Nonspecific Abnormal Findings 12/20/2008 ANSON WADE APRN L 794.6 Endocrine Laboratory Tests Nonspecific Abnormal Findings 12/20/2008 MALACHI TOBIAS APRNINA R 794.6 Endocrine Laboratory Tests Nonspecific Abnormal Findings 12/20/2008 ELLIOT MORENO DDS J 794.6 Endocrine Laboratory Tests Nonspecific Abnormal Findings 12/20/2008 CARMEN GIBBS MD N 794.6 Endocrine Laboratory Tests Nonspecific Abnormal Findings 12/20/2008 ROLON DO, EMIL K 794.6 Endocrine Laboratory Tests Nonspecific Abnormal Findings 12/20/2008 ANSON WADE APRN L 794.6 Endocrine Laboratory Tests Nonspecific Abnormal Findings 12/20/2008 CARMEN GIBBS MD N 794.6 Endocrine Laboratory Tests Nonspecific Abnormal Findings 12/20/2008 CARMEN GIBBS MD 794.6 Endocrine Laboratory Tests Nonspecific Abnormal Findings 12/20/2008 ANSON WADE APRN L 794.6 Endocrine Laboratory Tests Nonspecific Abnormal Findings 12/20/2008 ROLON DO, EMIL K 794.6 Endocrine Laboratory Tests Nonspecific Abnormal Findings 03/31/2009 REGINO BOYD DDS N 493.90 ASTHMA 03/31/2009 493.90 ASTHMA 03/31/2009 BRENNA LOBATO APRN R 493.90 ASTHMA 03/31/2009 ROLON DO, EMIL K 493.90 ASTHMA 03/31/2009 ELLY DOUGLAS MD 493.90 ASTHMA 03/31/2009 CARMEN GIBBS MD 493.90 ASTHMA 03/31/2009 CARMEN GIBBS MD 493.90 ASTHMA 03/31/2009 RAQUEL LOPEZ DDS 493.90 ASTHMA 03/31/2009 ROLON DO, EMIL K 493.90 ASTHMA 03/31/2009 CARMEN GIBBS MD N 493.90 ASTHMA 03/31/2009 CARMEN GIBBS MD 493.90 ASTHMA 03/31/2009 OSMAN ALVAREZ APRN 493.90 ASTHMA 03/31/2009 ROLON DO, EMIL K 493.90 ASTHMA 03/31/2009 ROLON DO, EMIL K 493.90 ASTHMA 03/31/2009 ROLON DO, EMIL K 493.90 ASTHMA 03/31/2009 OSMAN ALVAREZ APRN 493.90 ASTHMA 03/31/2009 ROLON DO, EMIL K 493.90 ASTHMA 03/31/2009 ROLON DO, EMIL K 493.90 ASTHMA 03/31/2009 BRENNA LOBATO APRN R 493.90 ASTHMA 03/31/2009 ANSON WADE APRN L 493.90 ASTHMA 03/31/2009 CRISTINO LOBATO APRNIA R 493.90 ASTHMA 03/31/2009 CARMEN GIBBS MD 493.90 ASTHMA 03/31/2009 ROLON DO, EMIL K 493.90 ASTHMA 03/31/2009 MICHELINE BAUMANN RAQUEL R 493.90 ASTHMA 03/31/2009 CARMEN GIBBS MD 493.90 ASTHMA 03/31/2009 LUIS ALFREDO BAUMANN, BRENNA R 493.90 ASTHMA 03/31/2009 MICHELINE TYPO MACHINE OPERATOR, RAQUEL R 493.90 ASTHMA 03/31/2009 CARMEN GIBBS MD N 493.90 ASTHMA 03/31/2009 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, ANSON L 493.90 ASTHMA 03/31/2009 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, ANSON L 493.90 ASTHMA 03/31/2009 MICHELINE TYPO MACHINE OPERATOR, RAQUEL R 493.90 ASTHMA 03/31/2009 JOSH VILLAVICENCIO, ELLIOT Alston 493.90 ASTHMA 03/31/2009 SAI PARISH, CARMEN N 493.90 ASTHMA 03/31/2009 SUDHIR ROLON DOA K 493.90 ASTHMA 03/31/2009 MADBenji TYPO MACHINE OPERATOR, ANSON L 493.90 ASTHMA 03/31/2009 CARMEN GIBBS MD N 493.90 ASTHMA 03/31/2009 CARMEN GIBBS MD N 493.90 ASTHMA 03/31/2009 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, ANSON L 493.90 ASTHMA 03/31/2009 SUDHIR ROLON DOA K 493.90 ASTHMA 04/25/2009 DEB VILLAVICENCIO, REGINO Christie V74.1 Screening Examination For Pulmonary Tuberculosis 04/25/2009 V74.1 Screening Examination For Pulmonary Tuberculosis 04/25/2009 BRENNA LOBATO APRN R V74.1 Screening Examination For Pulmonary Tuberculosis 04/25/2009 EMIL ROLON DO K V74.1 Screening Examination For Pulmonary Tuberculosis 04/25/2009 ELLY DOUGLAS MD V74.1 Screening Examination For Pulmonary Tuberculosis 04/25/2009 CARMEN GIBBS MD V74.1 Screening Examination For Pulmonary Tuberculosis 04/25/2009 CARMEN GIBBS MD V74.1 Screening Examination For Pulmonary Tuberculosis 04/25/2009 JESSICA VILLAVICENCIO, RAQUEL Galdamez V74.1 Screening Examination For Pulmonary Tuberculosis 04/25/2009 EMIL ROLON DO V74.1 Screening Examination For Pulmonary Tuberculosis 04/25/2009 CARMEN GIBBS MD V74.1 Screening Examination For Pulmonary Tuberculosis 04/25/2009 CARMEN GIBBS MD V74.1 Screening Examination For Pulmonary Tuberculosis 04/25/2009 OSMAN ALVAREZ APRN V74.1 Screening Examination For Pulmonary Tuberculosis 04/25/2009 ROLON DO, EMIL K V74.1 Screening Examination For Pulmonary Tuberculosis 04/25/2009 ROLON DO, EMIL K V74.1 Screening Examination For Pulmonary Tuberculosis 04/25/2009 ROLON DO, EMIL K V74.1 Screening Examination For Pulmonary Tuberculosis 04/25/2009 OSMAN ALVAREZ APRN V74.1 Screening Examination For Pulmonary Tuberculosis 04/25/2009 ROLON DO, EMIL K V74.1 Screening Examination For Pulmonary Tuberculosis 04/25/2009 ROLON DO, EMIL K V74.1 Screening Examination For Pulmonary Tuberculosis 04/25/2009 EMERY LOBATO APRNRICIA R V74.1 Screening Examination For Pulmonary Tuberculosis 04/25/2009 SHERI TYPO MACHINE OPERATOR, ANSON L V74.1 Screening Examination For Pulmonary Tuberculosis 04/25/2009 EMERY LOBATO APRNRICIA R V74.1 Screening Examination For Pulmonary Tuberculosis 04/25/2009 CARMEN GIBBS MD V74.1 Screening Examination For Pulmonary Tuberculosis 04/25/2009 GONZALES GAMING EMIL K V74.1 Screening Examination For Pulmonary Tuberculosis 04/25/2009 MICHELINE BAUMANN, RAQUEL R V74.1 Screening Examination For Pulmonary Tuberculosis 04/25/2009 CARMEN GIBBS MD V74.1 Screening Examination For Pulmonary Tuberculosis 04/25/2009 CRISTINO LOBATO APRNIA R V74.1 Screening Examination For Pulmonary Tuberculosis 04/25/2009 MICHELINE BAUMANN, RAQUEL R V74.1 Screening Examination For Pulmonary Tuberculosis 04/25/2009 CARMEN GIBBS MD V74.1 Screening Examination For Pulmonary Tuberculosis 04/25/2009 SHERI BAUMANN, ANSON L V74.1 Screening Examination For Pulmonary Tuberculosis 04/25/2009 SHERI BAUMANN, ANSON L V74.1 Screening Examination For Pulmonary Tuberculosis 04/25/2009 MICHELINE BAUMANN, RAQUEL R V74.1 Screening Examination For Pulmonary Tuberculosis 04/25/2009 JOSH VILLAVICENCIO, ELLIOT Alston V74.1 Screening Examination For Pulmonary Tuberculosis 04/25/2009 CARMEN GIBBS MD V74.1 Screening Examination For Pulmonary Tuberculosis 04/25/2009 SUDHIR ROLON DOA K V74.1 Screening Examination For Pulmonary Tuberculosis 04/25/2009 SHERI BAUMANN, ANSON L V74.1 Screening Examination For Pulmonary Tuberculosis 04/25/2009 CARMEN GIBBS MD V74.1 Screening Examination For Pulmonary Tuberculosis 04/25/2009 CARMEN GIBBS MD V74.1 Screening Examination For Pulmonary Tuberculosis 04/25/2009 ANSON WADE APRN V74.1 Screening Examination For Pulmonary Tuberculosis 04/25/2009 ROLON DO, EMIL K V74.1 Screening Examination For Pulmonary Tuberculosis 04/26/2009 DEB VILLAVICENCIO, REGINO N 112.0 Candidiasis Oral Thrush 04/26/2009 112.0 Candidiasis Oral Thrush 04/26/2009 BRENNA LOBATO APRN R 112.0 Candidiasis Oral Thrush 04/26/2009 ROLON DO, EMIL K 112.0 Candidiasis Oral Thrush 04/26/2009 ELLY DOUGLAS MD 112.0 Candidiasis Oral Thrush 04/26/2009 CARMEN GIBBS MD 112.0 Candidiasis Oral Thrush 04/26/2009 CARMEN GIBBS MD 112.0 Candidiasis Oral Thrush 04/26/2009 JESSICA VILLAVICENCIO, RAQUEL Galdamez 112.0 Candidiasis Oral Thrush 04/26/2009 ROLON DO, EMIL K 112.0 Candidiasis Oral Thrush 04/26/2009 CARMEN GIBBS MD 112.0 Candidiasis Oral Thrush 04/26/2009 CARMEN GIBBS MD 112.0 Candidiasis Oral Thrush 04/26/2009 OSMAN ALVAREZ APRN 112.0 Candidiasis Oral Thrush 04/26/2009 ROLON DO, EMIL K 112.0 Candidiasis Oral Thrush 04/26/2009 ROLON DO, EMIL K 112.0 Candidiasis Oral Thrush 04/26/2009 ROLON DO, EMIL K 112.0 Candidiasis Oral Thrush 04/26/2009 OSMAN ALVAREZ APRN 112.0 Candidiasis Oral Thrush 04/26/2009 ROLON DO, EMIL K 112.0 Candidiasis Oral Thrush 04/26/2009 ROLON DO, EMIL K 112.0 Candidiasis Oral Thrush 04/26/2009 BRENNA LOBATO APRN R 112.0 Candidiasis Oral Thrush 04/26/2009 ANSON WADE APRN 112.0 Candidiasis Oral Thrush 04/26/2009 BRENNA LOBATO APRN R 112.0 Candidiasis Oral Thrush 04/26/2009 CARMEN GIBBS MD 112.0 Candidiasis Oral Thrush 04/26/2009 ROLON DO, EMIL K 112.0 Candidiasis Oral Thrush 04/26/2009 MICHELINE BAUMANN, RAQUEL R 112.0 Candidiasis Oral Thrush 04/26/2009 CARMEN GIBBS MD N 112.0 Candidiasis Oral Thrush 04/26/2009 BRENNA LOBATO APRN R 112.0 Candidiasis Oral Thrush 04/26/2009 MICEHLINE BAUMANN RAQUEL R 112.0 Candidiasis Oral Thrush 04/26/2009 CARMEN GIBBS MD N 112.0 Candidiasis Oral Thrush 04/26/2009 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, ANSON L 112.0 Candidiasis Oral Thrush 04/26/2009 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, ANSON L 112.0 Candidiasis Oral Thrush 04/26/2009 MALACHI TOBIAS APRNINA R 112.0 Candidiasis Oral Thrush 04/26/2009 ELLIOT MORENO DDS 112.0 Candidiasis Oral Thrush 04/26/2009 CARMEN GIBBS MD N 112.0 Candidiasis Oral Thrush 04/26/2009 SUDHIR ROLON DOA K 112.0 Candidiasis Oral Thrush 04/26/2009 SHERI BAUMANN, ANSON L 112.0 Candidiasis Oral Thrush 04/26/2009 CARMEN GIBBS MD N 112.0 Candidiasis Oral Thrush 04/26/2009 CARMEN GIBBS MD N 112.0 Candidiasis Oral Thrush 04/26/2009 SHERI BAUMANN, ANSON L 112.0 Candidiasis Oral Thrush 04/26/2009 GONZALES GAMING EMIL K 112.0 Candidiasis Oral Thrush 05/24/2009 DEB VILLAVICENCIO, REGINO Christie 789.06 Abdominal Pain In The Central Upper Belly (epigastric) 05/24/2009 789.06 Abdominal Pain In The Central Upper Belly (epigastric) 05/24/2009 BRENNA LOBATO APRN R 789.06 Abdominal Pain In The Central Upper Belly (epigastric) 05/24/2009 EMIL ROLON DO K 789.06 Abdominal Pain In The Central Upper Belly (epigastric) 05/24/2009 ELLY DOUGLAS MD 789.06 Abdominal Pain In The Central Upper Belly (epigastric) 05/24/2009 CARMEN GIBBS MD 789.06 Abdominal Pain In The Central Upper Belly (epigastric) 05/24/2009 CARMEN GIBBS MD 789.06 Abdominal Pain In The Central Upper Belly (epigastric) 05/24/2009 RAQUEL LOPEZ DDS 789.06 Abdominal Pain In The Central Upper Belly (epigastric) 05/24/2009 EMIL ROLON DO 789.06 Abdominal Pain In The Central Upper Belly (epigastric) 05/24/2009 CARMEN GIBBS MD 789.06 Abdominal Pain In The Central Upper Belly (epigastric) 05/24/2009 CARMEN GIBBS MD 789.06 Abdominal Pain In The Central Upper Belly (epigastric) 05/24/2009 OSMAN ALVAREZ APRN 789.06 Abdominal Pain In The Central Upper Belly (epigastric) 05/24/2009 EMIL ROLON DO K 789.06 Abdominal Pain In The Central Upper Belly (epigastric) 05/24/2009 EMIL ROLON DO K 789.06 Abdominal Pain In The Central Upper Belly (epigastric) 05/24/2009 SUDHIR ROLON DOA K 789.06 Abdominal Pain In The Central Upper Belly (epigastric) 05/24/2009 OSMAN ALVAREZ APRN 789.06 Abdominal Pain In The Central Upper Belly (epigastric) 05/24/2009 EMIL ROLON DO K 789.06 Abdominal Pain In The Central Upper Belly (epigastric) 05/24/2009 EMIL ROLON DO K 789.06 Abdominal Pain In The Central Upper Belly (epigastric) 05/24/2009 BRENNA LOBATO APRN R 789.06 Abdominal Pain In The Central Upper Belly (epigastric) 05/24/2009 ANSON WADE APRN 789.06 Abdominal Pain In The Central Upper Belly (epigastric) 05/24/2009 BRENNA LOBATO APRN R 789.06 Abdominal Pain In The Central Upper Belly (epigastric) 05/24/2009 CARMEN GIBBS MD 789.06 Abdominal Pain In The Central Upper Belly (epigastric) 05/24/2009 EMIL RLOON DO 789.06 Abdominal Pain In The Central Upper Belly (epigastric) 05/24/2009 RAQUEL TOBIAS APRN 789.06 Abdominal Pain In The Central Upper Belly (epigastric) 05/24/2009 CARMEN GIBBS MD 789.06 Abdominal Pain In The Central Upper Belly (epigastric) 05/24/2009 BRENNA LOBATO APRN R 789.06 Abdominal Pain In The Central Upper Belly (epigastric) 05/24/2009 RAQUEL TOBIAS APRN R 789.06 Abdominal Pain In The Central Upper Belly (epigastric) 05/24/2009 CARMEN GIBBS MD 789.06 Abdominal Pain In The Central Upper Belly (epigastric) 05/24/2009 ANSON WADE APRN L 789.06 Abdominal Pain In The Central Upper Belly (epigastric) 05/24/2009 ANSON WADE APRN L 789.06 Abdominal Pain In The Central Upper Belly (epigastric) 05/24/2009 RAQUEL TOBIAS APRN R 789.06 Abdominal Pain In The Central Upper Belly (epigastric) 05/24/2009 ELLIOT MORENO DDS 789.06 Abdominal Pain In The Central Upper Belly (epigastric) 05/24/2009 CARMEN GIBBS MD N 789.06 Abdominal Pain In The Central Upper Belly (epigastric) 05/24/2009 EMIL ROLON DO 789.06 Abdominal Pain In The Central Upper Belly (epigastric) 05/24/2009 ANSON WADE APRN L 789.06 Abdominal Pain In The Central Upper Belly (epigastric) 05/24/2009 CARMEN GIBBS MD N 789.06 Abdominal Pain In The Central Upper Belly (epigastric) 05/24/2009 CARMEN GIBBS MD 789.06 Abdominal Pain In The Central Upper Belly (epigastric) 05/24/2009 ANSON WADE APRN 789.06 Abdominal Pain In The Central Upper Belly (epigastric) 05/24/2009 EMIL ROLON DO 789.06 Abdominal Pain In The Central Upper Belly (epigastric) 07/14/2009 REGINO BOYD DDS 278.00 OBESITY 07/14/2009 278.00 OBESITY 07/14/2009 BRENNA LOBATO APRN 278.00 OBESITY 07/14/2009 EMIL ROLON DO 278.00 OBESITY 07/14/2009 ELLY DOUGLAS MD 278.00 OBESITY 07/14/2009 CARMEN GIBBS MD 278.00 OBESITY 07/14/2009 CARMEN GIBBS MD 278.00 OBESITY 07/14/2009 JESSICA VILLAVICENCIO, RAQUEL Galdamez 278.00 OBESITY 07/14/2009 ROLON DO, EMIL K 278.00 OBESITY 07/14/2009 CARMEN GIBBS MD 278.00 OBESITY 07/14/2009 CARMEN GIBBS MD N 278.00 OBESITY 07/14/2009 KIM BAUMANN OSMAN T 278.00 OBESITY 07/14/2009 ROLON DO, EMIL K 278.00 OBESITY 07/14/2009 ROLON DO, EMIL K 278.00 OBESITY 07/14/2009 ROLON DO, EMIL K 278.00 OBESITY 07/14/2009 OSMAN ALVAREZ APRN T 278.00 OBESITY 07/14/2009 ROLON DO, EMIL K 278.00 OBESITY 07/14/2009 ROLON DO, EMIL K 278.00 OBESITY 07/14/2009 EMERY LOBATO APRNRICIA R 278.00 OBESITY 07/14/2009 ANSON WADE APRN L 278.00 OBESITY 07/14/2009 CRISTINO LOBATO APRNIA R 278.00 OBESITY 07/14/2009 CARMEN GIBBS MD 278.00 OBESITY 07/14/2009 ROLON DO, EMIL K 278.00 OBESITY 07/14/2009 MICHELINE BAUMANN RAQUEL R 278.00 OBESITY 07/14/2009 CARMEN GIBBS MD 278.00 OBESITY 07/14/2009 CRISTINO LOBATO APRNIA R 278.00 OBESITY 07/14/2009 MICHELINE BAUMANN RAQUEL R 278.00 OBESITY 07/14/2009 CARMEN GIBBS MD N 278.00 OBESITY 07/14/2009 ANSON WADE APRN L 278.00 OBESITY 07/14/2009 ANSON WADE APRN L 278.00 OBESITY 07/14/2009 MICHELINE BAUMANN RAQUEL R 278.00 OBESITY 07/14/2009 ELLIOT MORENO DDS 278.00 OBESITY 07/14/2009 CARMEN GIBBS MD 278.00 OBESITY 07/14/2009 ROLON DO, EMIL K 278.00 OBESITY 07/14/2009 LETICIA WADE APRNA L 278.00 OBESITY 07/14/2009 SAI PARISH, CARMEN N 278.00 OBESITY 07/14/2009 SAI PARISH, CARMEN Christie 278.00 OBESITY 07/14/2009 SHERI BAUMANN, ANSON Leblanc 278.00 OBESITY 07/14/2009 ROLON DO, EMIL K 278.00 OBESITY 09/05/2009 DEB VILLAVICENCIO, REGINO Christie 597.80 Urethritis, Unspecified 09/05/2009 597.80 Urethritis, Unspecified 09/05/2009 BRENNA LOBATO APRN R 597.80 Urethritis, Unspecified 09/05/2009 ROLON DO, EMIL K 597.80 Urethritis, Unspecified 09/05/2009 STELLA PARISH, ELLY 597.80 Urethritis, Unspecified 09/05/2009 SAI [place], CARMEN N 597.80 Urethritis, Unspecified 09/05/2009 SAI [place], CARMEN Christie 597.80 Urethritis, Unspecified 09/05/2009 JESSICA VILLAVICENCIO, RAQUEL Galdamez 597.80 Urethritis, Unspecified 09/05/2009 ROLON DO, EMIL K 597.80 Urethritis, Unspecified 09/05/2009 SAI PARISH, CARMEN N 597.80 Urethritis, Unspecified 09/05/2009 CARMEN GIBBS MD N 597.80 Urethritis, Unspecified 09/05/2009 OSMAN ALVAREZ APRN 597.80 Urethritis, Unspecified 09/05/2009 ROLON DO, EMIL K 597.80 Urethritis, Unspecified 09/05/2009 ROLON DO, EMIL K 597.80 Urethritis, Unspecified 09/05/2009 ROLON DO, EMIL K 597.80 Urethritis, Unspecified 09/05/2009 OSMAN ALVAREZ APRN 597.80 Urethritis, Unspecified 09/05/2009 ROLON DO, EMIL K 597.80 Urethritis, Unspecified 09/05/2009 ROLON DO, EMIL K 597.80 Urethritis, Unspecified 09/05/2009 BRENNA LOBATO APRN R 597.80 Urethritis, Unspecified 09/05/2009 ANSON WADE APRN 597.80 Urethritis, Unspecified 09/05/2009 LOBATO TYPO MACHINE OPERATOR, BRENNA R 597.80 Urethritis, Unspecified 09/05/2009 SAI PARISH, CARMEN N 597.80 Urethritis, Unspecified 09/05/2009 ROLON DO, EMIL K 597.80 Urethritis, Unspecified 09/05/2009 MICHELINE TYPO MACHINE OPERATOR, RAQUEL R 597.80 Urethritis, Unspecified 09/05/2009 SAI PARISH, CARMEN N 597.80 Urethritis, Unspecified 09/05/2009 CRISTINO LOBATO APRNIA R 597.80 Urethritis, Unspecified 09/05/2009 MICHELINE TYPO MACHINE OPERATOR, RAQUEL R 597.80 Urethritis, Unspecified 09/05/2009 SAI PARISH, CARMEN N 597.80 Urethritis, Unspecified 09/05/2009 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, ANSON L 597.80 Urethritis, Unspecified 09/05/2009 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, ANSON L 597.80 Urethritis, Unspecified 09/05/2009 MICHELINE TYPO MACHINE OPERATOR, RAQUEL R 597.80 Urethritis, Unspecified 09/05/2009 JOSH VILLAVICENCIO, ELLIOT Alston 597.80 Urethritis, Unspecified 09/05/2009 SAI PARISH, CARMEN N 597.80 Urethritis, Unspecified 09/05/2009 GONZALES GAMING, EMIL K 597.80 Urethritis, Unspecified 09/05/2009 MADBenji TYPO MACHINE OPERATOR, ANSON L 597.80 Urethritis, Unspecified 09/05/2009 SAI PARISH, CARMEN N 597.80 Urethritis, Unspecified 09/05/2009 SAI PARISH, CARMEN N 597.80 Urethritis, Unspecified 09/05/2009 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, ANSON L 597.80 Urethritis, Unspecified 09/05/2009 ROLON DO, EMIL K 597.80 Urethritis, Unspecified 09/24/2009 DEB VILLAVICENCIO, REGINO Christie 719.46 Pain In Joint, Lower Leg 09/24/2009 719.46 Pain In Joint , Lower Leg 09/24/2009 BRENNA LOBATO APRN 719.46 Pain In Joint, Lower Leg 09/24/2009 EMIL ROLON DO 719.46 Pain In Joint, Lower Leg 09/24/2009 ELLY DOUGLAS MD 719.46 Pain In Joint, Lower Leg 09/24/2009 CARMEN GIBBS MD 719.46 Pain In Joint, Lower Leg 09/24/2009 CARMEN GIBBS MD 719.46 Pain In Joint, Lower Leg 09/24/2009 JESSICA VILLAVICENCIO, RAQUEL Galdamez 719.46 Pain In Joint, Lower Leg 09/24/2009 ROLON DO, EMIL K 719.46 Pain In Joint, Lower Leg 09/24/2009 CARMEN GIBBS MD 719.46 Pain In Joint, Lower Leg 09/24/2009 CARMEN GIBBS MD 719.46 Pain In Joint, Lower Leg 09/24/2009 OSMAN ALVAREZ APRN 719.46 Pain In Joint, Lower Leg 09/24/2009 ROLON DO, EMIL K 719.46 Pain In Joint, Lower Leg 09/24/2009 ROLON DO, EMIL K 719.46 Pain In Joint, Lower Leg 09/24/2009 ROLON DO, EMIL K 719.46 Pain In Joint, Lower Leg 09/24/2009 OSMAN ALVAREZ APRN 719.46 Pain In Joint, Lower Leg 09/24/2009 ROLON DO, EMIL K 719.46 Pain In Joint, Lower Leg 09/24/2009 ROLON DO, EMIL K 719.46 Pain In Joint, Lower Leg 09/24/2009 BRENNA LOBATO APRN R 719.46 Pain In Joint, Lower Leg 09/24/2009 ANSON WADE APRN 719.46 Pain In Joint, Lower Leg 09/24/2009 BRENNA LOBATO APRN R 719.46 Pain In Joint, Lower Leg 09/24/2009 CARMEN GIBBS MD 719.46 Pain In Joint, Lower Leg 09/24/2009 ROLON DO, EMIL K 719.46 Pain In Joint, Lower Leg 09/24/2009 RAQUEL TOBIAS APRN R 719.46 Pain In Joint, Lower Leg 09/24/2009 CARMEN GIBBS MD 719.46 Pain In Joint, Lower Leg 09/24/2009 BRENNA LOBATO APRN R 719.46 Pain In Joint, Lower Leg 09/24/2009 RAQUEL TOBIAS APRN R 719.46 Pain In Joint, Lower Leg 09/24/2009 CARMEN GIBBS MD 719.46 Pain In Joint, Lower Leg 09/24/2009 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, ANSON L 719.46 Pain In Joint, Lower Leg 09/24/2009 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, ANSON L 719.46 Pain In Joint, Lower Leg 09/24/2009 RAQUEL TOBIAS APRN R 719.46 Pain In Joint, Lower Leg 09/24/2009 JOSH VILLAVICENCIO, ELLIOT Alston 719.46 Pain In Joint, Lower Leg 09/24/2009 CARMEN IGBBS MD N 719.46 Pain In Joint, Lower Leg 09/24/2009 EMIL ROLON DO K 719.46 Pain In Joint, Lower Leg 09/24/2009 SHERI BAUMANN, ANSON L 719.46 Pain In Joint, Lower Leg 09/24/2009 CARMEN GIBBS MD N 719.46 Pain In Joint, Lower Leg 09/24/2009 CARMEN GIBBS MD 719.46 Pain In Joint, Lower Leg 09/24/2009 SHERI BAUMANN, ANSON L 719.46 Pain In Joint, Lower Leg 09/24/2009 EMIL ROLON DO K 719.46 Pain In Joint, Lower Leg 10/06/2009 REGINO BOYD DDS 717.7 Chondromalacia Of Patella 10/06/2009 717.7 Chondromalacia Of Patella 10/06/2009 BRENNA LOBATO APRN 717.7 Chondromalacia Of Patella 10/06/2009 EMIL ROLON DO 717.7 Chondromalacia Of Patella 10/06/2009 ELLY DOUGLAS MD 717.7 Chondromalacia Of Patella 10/06/2009 CARMEN GIBBS MD 717.7 Chondromalacia Of Patella 10/06/2009 CARMEN GIBBS MD 717.7 Chondromalacia Of Patella 10/06/2009 RAQUEL LOPEZ DDS 717.7 Chondromalacia Of Patella 10/06/2009 EMIL ROLON DO 717.7 Chondromalacia Of Patella 10/06/2009 CARMEN GIBBS MD 717.7 Chondromalacia Of Patella 10/06/2009 CARMEN GIBBS MD 717.7 Chondromalacia Of Patella 10/06/2009 OSMAN ALVAREZ APRN 717.7 Chondromalacia Of Patella 10/06/2009 ROLON DO, EMIL K 717.7 Chondromalacia Of Patella 10/06/2009 ROLON DO, EMIL K 717.7 Chondromalacia Of Patella 10/06/2009 ROLON DO, EMIL K 717.7 Chondromalacia Of Patella 10/06/2009 OSMAN ALVAREZ APRN 717.7 Chondromalacia Of Patella 10/06/2009 ROLON DO EMIL K 717.7 Chondromalacia Of Patella 10/06/2009 ROLON DO, EMIL K 717.7 Chondromalacia Of Patella 10/06/2009 CRISTINO LOBATO APRNIA R 717.7 Chondromalacia Of Patella 10/06/2009 LETICIA WADE APRNA L 717.7 Chondromalacia Of Patella 10/06/2009 EMERY LOBATO APRNRICIA R 717.7 Chondromalacia Of Patella 10/06/2009 CARMEN GIBBS MD 717.7 Chondromalacia Of Patella 10/06/2009 SUDHIR ROLON DOA K 717.7 Chondromalacia Of Patella 10/06/2009 MICHELINE BAUMANN RAQUEL R 717.7 Chondromalacia Of Patella 10/06/2009 CARMEN GIBBS MD 717.7 Chondromalacia Of Patella 10/06/2009 CRISTINO LOBATO APRNIA R 717.7 Chondromalacia Of Patella 10/06/2009 MICHELINE BAUMANN RAQUEL R 717.7 Chondromalacia Of Patella 10/06/2009 CARMEN GIBBS MD 717.7 Chondromalacia Of Patella 10/06/2009 SHERI BAUMANN ANSON L 717.7 Chondromalacia Of Patella 10/06/2009 SHERI BAUMANN ANSON L 717.7 Chondromalacia Of Patella 10/06/2009 MALACHI TOBIAS APRNINA R 717.7 Chondromalacia Of Patella 10/06/2009 JOSH VILLAVICENCIO, ELLIOT J 717.7 Chondromalacia Of Patella 10/06/2009 CARMEN GIBBS MD N 717.7 Chondromalacia Of Patella 10/06/2009 SUDHIR ROLON DOA K 717.7 Chondromalacia Of Patella 10/06/2009 ANSON WADE APRN L 717.7 Chondromalacia Of Patella 10/06/2009 CARMEN GIBBS MD N 717.7 Chondromalacia Of Patella 10/06/2009 CARMEN GIBBS MD 717.7 Chondromalacia Of Patella 10/06/2009 ANSON WADE APRN L 717.7 Chondromalacia Of Patella 10/06/2009 ROLON DO, EMIL K 717.7 Chondromalacia Of Patella 11/03/2009 DEB VILLAVICENCIO, REGINO Christie 733.92 Chondromalacia 11/03/2009 733.92 Chondromalacia 11/03/2009 BRENNA LOBATO APRN R 733.92 Chondromalacia 11/03/2009 ROLON DO EMIL K 733.92 Chondromalacia 11/03/2009 ELLY DOUGLAS MD 733.92 Chondromalacia 11/03/2009 CARMEN GIBBS MD N 733.92 Chondromalacia 11/03/2009 CARMEN GIBBS MD N 733.92 Chondromalacia 11/03/2009 RAQUEL LOPEZ DDS 733.92 Chondromalacia 11/03/2009 ROLON DO EMIL K 733.92 Chondromalacia 11/03/2009 CARMEN GIBBS MD N 733.92 Chondromalacia 11/03/2009 CARMEN GIBBS MD N 733.92 Chondromalacia 11/03/2009 OSMAN ALVAREZ APRN 733.92 Chondromalacia 11/03/2009 ROLON DO, EMIL K 733.92 Chondromalacia 11/03/2009 ROLON DO, EMIL K 733.92 Chondromalacia 11/03/2009 ROLON DO, EMIL K 733.92 Chondromalacia 11/03/2009 OSMAN ALVAREZ APRN 733.92 Chondromalacia 11/03/2009 ROLON DO, EMIL K 733.92 Chondromalacia 11/03/2009 ROLON DO, EMIL K 733.92 Chondromalacia 11/03/2009 EMERY LOBATO APRNRICIA R 733.92 Chondromalacia 11/03/2009 ANSON WADE APRN L 733.92 Chondromalacia 11/03/2009 CRISTINO LOBATO APRNIA R 733.92 Chondromalacia 11/03/2009 CARMEN GIBBS MD N 733.92 Chondromalacia 11/03/2009 SUDHIR ROLON DOA K 733.92 Chondromalacia 11/03/2009 MICHELINE BAUMANN RAQUEL R 733.92 Chondromalacia 11/03/2009 CARMEN GIBBS MD N 733.92 Chondromalacia 11/03/2009 BRENNA LOBATO APRN R 733.92 Chondromalacia 11/03/2009 MICHELINE BAUMANN RAQUEL R 733.92 Chondromalacia 11/03/2009 CARMEN GIBBS MD N 733.92 Chondromalacia 11/03/2009 SHERI BAUMANN, ANSON L 733.92 Chondromalacia 11/03/2009 CINTHIA WADE APRNWNYA L 733.92 Chondromalacia 11/03/2009 MALACHI TOBIAS APRNINA R 733.92 Chondromalacia 11/03/2009 ELLIOT MORENO DDS 733.92 Chondromalacia 11/03/2009 CARMEN GIBBS MD N 733.92 Chondromalacia 11/03/2009 EMIL ROLON DO K 733.92 Chondromalacia 11/03/2009 SHERI BAUMANN ANSON L 733.92 Chondromalacia 11/03/2009 CARMEN GIBBS MD N 733.92 Chondromalacia 11/03/2009 CARMEN GIBBS MD N 733.92 Chondromalacia 11/03/2009 TIM WADE APRNNYA L 733.92 Chondromalacia 11/03/2009 SUDHIR ROLON DOA K 733.92 Chondromalacia 11/07/2009 Ot 789.09 11/08/2009 REGINO BOYD DDS 338.4 CHRONIC PAIN SYNDROME 11/08/2009 338.4 CHRONIC PAIN SYNDROME 11/08/2009 BRENNA LOBATO APRN R 338.4 CHRONIC PAIN SYNDROME 11/08/2009 EMIL ROLON DO K 338.4 CHRONIC PAIN SYNDROME 11/08/2009 ELLY DOUGLAS MD 338.4 CHRONIC PAIN SYNDROME 11/08/2009 CARMEN GIBBS MD 338.4 CHRONIC PAIN SYNDROME 11/08/2009 CARMEN GIBBS MD 338.4 CHRONIC PAIN SYNDROME 11/08/2009 RAQUEL LOPEZ DDS 338.4 CHRONIC PAIN SYNDROME 11/08/2009 ROLON DO, EMIL K 338.4 CHRONIC PAIN SYNDROME 11/08/2009 CARMEN GIBBS MD 338.4 CHRONIC PAIN SYNDROME 11/08/2009 CARMEN GIBBS MD 338.4 CHRONIC PAIN SYNDROME 11/08/2009 OSMAN ALVAREZ APRN 338.4 CHRONIC PAIN SYNDROME 11/08/2009 ROLON DO, EMIL K 338.4 CHRONIC PAIN SYNDROME 11/08/2009 ROLON DO, EMIL K 338.4 CHRONIC PAIN SYNDROME 11/08/2009 ROLON DO, EMIL K 338.4 CHRONIC PAIN SYNDROME 11/08/2009 OSMAN ALVAREZ APRN 338.4 CHRONIC PAIN SYNDROME 11/08/2009 ROLON DO, EMIL K 338.4 CHRONIC PAIN SYNDROME 11/08/2009 ROLON DO, EMIL K 338.4 CHRONIC PAIN SYNDROME 11/08/2009 CRISTINO LOBATO APRNIA R 338.4 CHRONIC PAIN SYNDROME 11/08/2009 LETICIA WADE APRNA L 338.4 CHRONIC PAIN SYNDROME 11/08/2009 EMERY LOBATO APRNRICIA R 338.4 CHRONIC PAIN SYNDROME 11/08/2009 CARMEN GIBBS MD 338.4 CHRONIC PAIN SYNDROME 11/08/2009 ROLON SUDHIR GAMINGA K 338.4 CHRONIC PAIN SYNDROME 11/08/2009 MICHELINE BAUMANN RAQUEL R 338.4 CHRONIC PAIN SYNDROME 11/08/2009 CARMEN GIBBS MD 338.4 CHRONIC PAIN SYNDROME 11/08/2009 EMERY LOBATO APRNRICIA R 338.4 CHRONIC PAIN SYNDROME 11/08/2009 MICHELINE BAUMANN RAQUEL R 338.4 CHRONIC PAIN SYNDROME 11/08/2009 CARMEN GIBBS MD 338.4 CHRONIC PAIN SYNDROME 11/08/2009 LETICIA WADE APRNA L 338.4 CHRONIC PAIN SYNDROME 11/08/2009 LETICIA WADE APRNA L 338.4 CHRONIC PAIN SYNDROME 11/08/2009 MICHELINE BAUMANN RAQUEL R 338.4 CHRONIC PAIN SYNDROME 11/08/2009 JOSH VILLAVICENCIO, ELLIOT Alston 338.4 CHRONIC PAIN SYNDROME 11/08/2009 CARMEN GIBBS MD 338.4 CHRONIC PAIN SYNDROME 11/08/2009 ROLON DO, EMIL K 338.4 CHRONIC PAIN SYNDROME 11/08/2009 LETICIA WADE APRNA L 338.4 CHRONIC PAIN SYNDROME 11/08/2009 SAI [place], CARMEN N 338.4 CHRONIC PAIN SYNDROME 11/08/2009 [place]I [place], CARMEN Christie 338.4 CHRONIC PAIN SYNDROME 11/08/2009 SHERI YUN, ANSON L 338.4 CHRONIC PAIN SYNDROME 11/08/2009 ROLON DO, EMIL K 338.4 CHRONIC PAIN SYNDROME 11/18/2009 Ot 717.7 11/18/2009 Ot V57.1 12/20/2009 DEB VILALVICENCIO, REGINO N 704.8 Folliculitis 12/20/2009 704.8 Folliculitis 12/20/2009 BRENNA LOBATO APRN R 704.8 Folliculitis 12/20/2009 ROLON DO, EMIL K 704.8 Folliculitis 12/20/2009 ELLY DOUGLAS MD 704.8 Folliculitis 12/20/2009 SAI [place], CARMEN N 704.8 Folliculitis 12/20/2009 CARMEN GIBBS MD 704.8 Folliculitis 12/20/2009 JESSICA VILLAVICENCIO, RAQUEL Galdamez 704.8 Folliculitis 12/20/2009 ROLON DO, EMIL K 704.8 Folliculitis 12/20/2009 CARMEN GIBBS MD 704.8 Folliculitis 12/20/2009 CARMEN GIBBS MD N 704.8 Folliculitis 12/20/2009 OSMAN ALVAREZ APRN 704.8 Folliculitis 12/20/2009 ROLON DO, EMIL K 704.8 Folliculitis 12/20/2009 ROLON DO, EMIL K 704.8 Folliculitis 12/20/2009 ROLON DO, EMIL K 704.8 Folliculitis 12/20/2009 OSMAN ALVAREZ APRN 704.8 Folliculitis 12/20/2009 ROLON DO, EMIL K 704.8 Folliculitis 12/20/2009 ROLON DO, EMIL K 704.8 Folliculitis 12/20/2009 BRENNA LOBATO APRN R 704.8 Folliculitis 12/20/2009 ANSON WADE APRN L 704.8 Folliculitis 12/20/2009 BRENNA LOBATO APRN R 704.8 Folliculitis 12/20/2009 CARMEN GIBBS MD N 704.8 Folliculitis 12/20/2009 ROLON DO, EMIL K 704.8 Folliculitis 12/20/2009 MICHELINE BAUMANN, RAQUEL R 704.8 Folliculitis 12/20/2009 CARMEN GIBBS MD N 704.8 Folliculitis 12/20/2009 BRENNA LOBATO APRN R 704.8 Folliculitis 12/20/2009 MICHELINE BAUMANN, RAQUEL R 704.8 Folliculitis 12/20/2009 CARMEN GIBBS MD N 704.8 Folliculitis 12/20/2009 MADBenji TYPO MACHINE OPERATOR, ANSON L 704.8 Folliculitis 12/20/2009 JOSE FRANCISCOL PASTOR, ANSON L 704.8 Folliculitis 12/20/2009 MICHELINE BAUMANN, RAQUEL R 704.8 Folliculitis 12/20/2009 JOSH VILLAVICENCIO, ELLIOT Alston 704.8 Folliculitis 12/20/2009 CARMEN GIBBS MD N 704.8 Folliculitis 12/20/2009 ROLON , EMIL K 704.8 Folliculitis 12/20/2009 SHERI BAUMANN, ANSON L 704.8 Folliculitis 12/20/2009 CARMEN GIBBS MD N 704.8 Folliculitis 12/20/2009 CARMEN GIBBS MD N 704.8 Folliculitis 12/20/2009 SHERI BAUMANN, ANSON L 704.8 Folliculitis 12/20/2009 ROLON DO, EMIL K 704.8 Folliculitis 12/29/2009 DEB VILLAVICENCIO, REGINO Christie 787.3 Flatulence, Eructation, And Gas Pain 12/29/2009 787.3 Flatulence, Eructation, And Gas Pain 12/29/2009 BRENNA LOBATO APRN 787.3 Flatulence, Eructation, And Gas Pain 12/29/2009 ROLON DO EMIL K 787.3 Flatulence, Eructation, And Gas Pain 12/29/2009 ELLY DOUGLAS MD 787.3 Flatulence, Eructation, And Gas Pain 12/29/2009 CARMEN GIBBS MD 787.3 Flatulence, Eructation, And Gas Pain 12/29/2009 CARMEN GIBBS MD 787.3 Flatulence, Eructation, And Gas Pain 12/29/2009 RAQUEL LOPEZ DDS 787.3 Flatulence, Eructation, And Gas Pain 12/29/2009 ROLON DO, EMIL K 787.3 Flatulence, Eructation, And Gas Pain 12/29/2009 CARMEN GIBBS MD 787.3 Flatulence, Eructation, And Gas Pain 12/29/2009 CARMEN GIBBS MD 787.3 Flatulence, Eructation, And Gas Pain 12/29/2009 OSMAN ALVAREZ APRN 787.3 Flatulence, Eructation, And Gas Pain 12/29/2009 ROLON DO, EMIL K 787.3 Flatulence, Eructation, And Gas Pain 12/29/2009 ROLON DO, EMIL K 787.3 Flatulence, Eructation, And Gas Pain 12/29/2009 ROLON DO, EMIL K 787.3 Flatulence, Eructation, And Gas Pain 12/29/2009 OSMAN ALVAREZ APRN 787.3 Flatulence, Eructation, And Gas Pain 12/29/2009 ROLON DO, EMIL K 787.3 Flatulence, Eructation, And Gas Pain 12/29/2009 ROLON DO, EMIL K 787.3 Flatulence, Eructation, And Gas Pain 12/29/2009 CRISTINO LOBATO APRNIA R 787.3 Flatulence, Eructation, And Gas Pain 12/29/2009 ANSON WADE APRN 787.3 Flatulence, Eructation, And Gas Pain 12/29/2009 BRENNA LOBATO APRN R 787.3 Flatulence, Eructation, And Gas Pain 12/29/2009 CARMEN GIBBS MD 787.3 Flatulence, Eructation, And Gas Pain 12/29/2009 ROLON DO EMIL K 787.3 Flatulence, Eructation, And Gas Pain 12/29/2009 MALACHI TOBIAS APRNINA R 787.3 Flatulence, Eructation, And Gas Pain 12/29/2009 CARMEN GIBBS MD 787.3 Flatulence, Eructation, And Gas Pain 12/29/2009 BRENNA LOBATO APRN R 787.3 Flatulence, Eructation, And Gas Pain 12/29/2009 MICHELINE BAUMANN RAQUEL R 787.3 Flatulence, Eructation, And Gas Pain 12/29/2009 CARMEN GIBBS MD N 787.3 Flatulence, Eructation, And Gas Pain 12/29/2009 LETICIA WADE APRNA L 787.3 Flatulence, Eructation, And Gas Pain 12/29/2009 SHERI BAUMANN ANSON L 787.3 Flatulence, Eructation, And Gas Pain 12/29/2009 MALACHI TOBIAS APRNINA R 787.3 Flatulence, Eructation, And Gas Pain 12/29/2009 ELLIOT MORENO DDS 787.3 Flatulence, Eructation, And Gas Pain 12/29/2009 CARMEN GIBBS MD N 787.3 Flatulence, Eructation, And Gas Pain 12/29/2009 EMIL ROLON DO K 787.3 Flatulence, Eructation, And Gas Pain 12/29/2009 LETICIA WADE APRNA L 787.3 Flatulence, Eructation, And Gas Pain 12/29/2009 CARMEN GIBBS MD N 787.3 Flatulence, Eructation, And Gas Pain 12/29/2009 CARMEN GBIBS MD 787.3 Flatulence, Eructation, And Gas Pain 12/29/2009 ANSON WADE APRN L 787.3 Flatulence, Eructation, And Gas Pain 12/29/2009 EMIL ROLON DO K 787.3 Flatulence, Eructation, And Gas Pain 01/09/2010 Ot 717.7 01/23/2010 Ot 211.3 01/23/2010 Ot 787.99 02/03/2010 REGINO BOYD DDS 709.9 Dermatology - Non-infectious 02/03/2010 709.9 Dermatology - Non-infectious 02/03/2010 BRENNA LOBATO APRN R 709.9 Dermatology - Non-infectious 02/03/2010 EMIL ROLON DO 709.9 Dermatology - Non-infectious 02/03/2010 ELLY DOUGLAS MD 709.9 Dermatology - Non-infectious 02/03/2010 CARMEN GIBBS MD N 709.9 Dermatology - Non-infectious 02/03/2010 CARMEN GIBBS MD N 709.9 Dermatology - Non-infectious 02/03/2010 JESSICA JETERS, RAQUEL Galdamez 709.9 Dermatology - Non-infectious 02/03/2010 ROLON DO, EMIL K 709.9 Dermatology - Non-infectious 02/03/2010 SAI [place]ISH, CARMEN N 709.9 Dermatology - Non-infectious 02/03/2010 CARMEN GIBBS MD N 709.9 Dermatology - Non-infectious 02/03/2010 OSMAN ALVAREZ APRN T 709.9 Dermatology - Non-infectious 02/03/2010 ROLON DO, EMIL K 709.9 Dermatology - Non-infectious 02/03/2010 ROLON DO, EMIL K 709.9 Dermatology - Non-infectious 02/03/2010 ROLON DO, EMIL K 709.9 Dermatology - Non-infectious 02/03/2010 OSMAN ALVAREZ APRN T 709.9 Dermatology - Non-infectious 02/03/2010 ROLON DO, EMIL K 709.9 Dermatology - Non-infectious 02/03/2010 ROLON DO, EMIL K 709.9 Dermatology - Non-infectious 02/03/2010 CRISTINO LOBATO APRNIA R 709.9 Dermatology - Non-infectious 02/03/2010 ANSON WADE APRN L 709.9 Dermatology - Non-infectious 02/03/2010 EMERY LOBATO APRNRICIA R 709.9 Dermatology - Non-infectious 02/03/2010 CARMEN GIBBS MD N 709.9 Dermatology - Non-infectious 02/03/2010 ROLON , EMIL K 709.9 Dermatology - Non-infectious 02/03/2010 MICHELINE BAUMANN RAQUEL R 709.9 Dermatology - Non-infectious 02/03/2010 CARMEN GIBBS MD N 709.9 Dermatology - Non-infectious 02/03/2010 CRISTINO LOBATO APRNIA R 709.9 Dermatology - Non-infectious 02/03/2010 MICHELINE BAUMANN RAQUEL R 709.9 Dermatology - Non-infectious 02/03/2010 CARMEN GIBBS MD N 709.9 Dermatology - Non-infectious 02/03/2010 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, ANSON L 709.9 Dermatology - Non-infectious 02/03/2010 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, ANSON L 709.9 Dermatology - Non-infectious 02/03/2010 MICHELINE TYPO MACHINE OPERATOR, RAQUEL R 709.9 Dermatology - Non-infectious 02/03/2010 JOSH JETERS, ELLIOT J 709.9 Dermatology - Non-infectious 02/03/2010 SAI [place], CARMEN N 709.9 Dermatology - Non-infectious 02/03/2010 ROLON , EMIL K 709.9 Dermatology - Non-infectious 02/03/2010 MADBenji TYPO MACHINE OPERATOR, ANSON L 709.9 Dermatology - Non-infectious 02/03/2010 [place]I [place], CARMEN N 709.9 Dermatology - Non-infectious 02/03/2010 SAI [place], CARMEN N 709.9 Dermatology - Non-infectious 02/03/2010 SHERI TYPO MACHINE OPERATOR, ANSON L 709.9 Dermatology - Non-infectious 02/03/2010 SUDHIR ROLON DOA K 709.9 Dermatology - Non-infectious 02/05/2010 Ot 789.06 02/07/2010 Ot 577.0 02/07/2010 Ot 789.06 02/08/2010 DEB JETERS, REGINO Christie 276.5 DEHYDRATION 02/08/2010 276.5 DEHYDRATION 02/08/2010 LUIS ALFREDO BAUMANN, BRENNA Dean 276.5 DEHYDRATION 02/08/2010 ROLON DO, EMIL K 276.5 DEHYDRATION 02/08/2010 ELLY DOUGLAS MD 276.5 DEHYDRATION 02/08/2010 CARMEN GIBBS MD N 276.5 DEHYDRATION 02/08/2010 CARMEN GIBBS MD N 276.5 DEHYDRATION 02/08/2010 JESSICA JETERS, RAQUEL Galdamez 276.5 DEHYDRATION 02/08/2010 ROLON DO, EMIL K 276.5 DEHYDRATION 02/08/2010 CARMEN GIBBS MD N 276.5 DEHYDRATION 02/08/2010 CARMEN GIBBS MD N 276.5 DEHYDRATION 02/08/2010 KIM YUN, OSMAN Martinez 276.5 DEHYDRATION 02/08/2010 ROLON DO, EMIL K 276.5 DEHYDRATION 02/08/2010 ROLON DO, EMIL K 276.5 DEHYDRATION 02/08/2010 ROLON DO, EMIL K 276.5 DEHYDRATION 02/08/2010 OSMAN ALVAREZ APRN 276.5 DEHYDRATION 02/08/2010 ROLON DO, EMIL K 276.5 DEHYDRATION 02/08/2010 ROLON DO, EMIL K 276.5 DEHYDRATION 02/08/2010 LUIS ALFREDO BAUMANN, BRENNA R 276.5 DEHYDRATION 02/08/2010 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, ANSON L 276.5 DEHYDRATION 02/08/2010 LUIS ALFREDO BAUMANN, BRENNA R 276.5 DEHYDRATION 02/08/2010 CARMEN GIBBS MD N 276.5 DEHYDRATION 02/08/2010 ROLON DO, EMIL K 276.5 DEHYDRATION 02/08/2010 MICHELINE BAUMANN, RAQUEL R 276.5 DEHYDRATION 02/08/2010 CARMEN GIBBS MD N 276.5 DEHYDRATION 02/08/2010 CRISTINO LOBATO APRNIA R 276.5 DEHYDRATION 02/08/2010 MICHELINE BAUMANN, RAQUEL R 276.5 DEHYDRATION 02/08/2010 CARMEN GIBBS MD N 276.5 DEHYDRATION 02/08/2010 SHERI TYPO MACHINE OPERATOR, ANSON L 276.5 DEHYDRATION 02/08/2010 MADBenji TYPO MACHINE OPERATOR, ANSON L 276.5 DEHYDRATION 02/08/2010 MICHELINE TYPO MACHINE OPERATOR, RAQUEL R 276.5 DEHYDRATION 02/08/2010 ELLIOT MORENO DDS 276.5 DEHYDRATION 02/08/2010 CARMEN GIBBS MD N 276.5 DEHYDRATION 02/08/2010 ROLON DO, EMIL K 276.5 DEHYDRATION 02/08/2010 SHERI BAUMANN, ANSON L 276.5 DEHYDRATION 02/08/2010 CARMEN GIBBS MD N 276.5 DEHYDRATION 02/08/2010 CARMEN GIBBS MD N 276.5 DEHYDRATION 02/08/2010 SHERI BAUMANN, ANSON L 276.5 DEHYDRATION 02/08/2010 ROLON DO, EMIL K 276.5 DEHYDRATION 02/13/2010 Ot 599.0 02/13/2010 Ot 789.06 02/15/2010 REGINO BOYD DDS 110.4 Dermatophytosis, Of Foot 02/15/2010 110.4 Dermatophytosis, Of Foot 02/15/2010 BRENNA LOBATO APRN R 110.4 Dermatophytosis, Of Foot 02/15/2010 ROLON DO, EMIL K 110.4 Dermatophytosis, Of Foot 02/15/2010 ELLY DOUGLAS MD 110.4 Dermatophytosis, Of Foot 02/15/2010 CARMEN GIBBS MD 110.4 Dermatophytosis, Of Foot 02/15/2010 CARMEN GIBBS MD 110.4 Dermatophytosis, Of Foot 02/15/2010 JESSICA VILLAVICENCIO, RAQUEL Galdamez 110.4 Dermatophytosis, Of Foot 02/15/2010 ROLON DOSUDHIRA K 110.4 Dermatophytosis, Of Foot 02/15/2010 CARMEN GIBBS MD 110.4 Dermatophytosis, Of Foot 02/15/2010 CARMEN GIBBS MD 110.4 Dermatophytosis, Of Foot 02/15/2010 OSMAN ALVAREZ APRN 110.4 Dermatophytosis, Of Foot 02/15/2010 ROLON DOSUDHIRA K 110.4 Dermatophytosis, Of Foot 02/15/2010 ROLON DOSUDHIRA K 110.4 Dermatophytosis, Of Foot 02/15/2010 ROLON SUDHIR GAMINGA K 110.4 Dermatophytosis, Of Foot 02/15/2010 OSMAN ALVAREZ APRN 110.4 Dermatophytosis, Of Foot 02/15/2010 ROLON DOSUDHIRA K 110.4 Dermatophytosis, Of Foot 02/15/2010 ROLON DO, EMIL K 110.4 Dermatophytosis, Of Foot 02/15/2010 BRENNA LOBATO APRN R 110.4 Dermatophytosis, Of Foot 02/15/2010 ANSON WADE APRN 110.4 Dermatophytosis, Of Foot 02/15/2010 BRENNA LOBATO APRN R 110.4 Dermatophytosis, Of Foot 02/15/2010 CARMEN GIBBS MD 110.4 Dermatophytosis, Of Foot 02/15/2010 EMIL ROLON DO K 110.4 Dermatophytosis, Of Foot 02/15/2010 RAQUEL TOBIAS APRN R 110.4 Dermatophytosis, Of Foot 02/15/2010 CARMEN GIBBS MD 110.4 Dermatophytosis, Of Foot 02/15/2010 BRENNA LOBATO APRN R 110.4 Dermatophytosis, Of Foot 02/15/2010 RAQUEL TOBIAS APRN R 110.4 Dermatophytosis, Of Foot 02/15/2010 CARMEN GIBBS MD N 110.4 Dermatophytosis, Of Foot 02/15/2010 ANSON WADE APRN L 110.4 Dermatophytosis, Of Foot 02/15/2010 ANSON WADE APRN L 110.4 Dermatophytosis, Of Foot 02/15/2010 RAQUEL TOBIAS APRN R 110.4 Dermatophytosis, Of Foot 02/15/2010 JOSH VILLAVICENCIO, ELLIOT Alston 110.4 Dermatophytosis, Of Foot 02/15/2010 CARMEN GIBBS MD 110.4 Dermatophytosis, Of Foot 02/15/2010 EMIL ROLON DO 110.4 Dermatophytosis, Of Foot 02/15/2010 ANSON WADE APRN L 110.4 Dermatophytosis, Of Foot 02/15/2010 CARMEN GIBBS MD 110.4 Dermatophytosis, Of Foot 02/15/2010 CARMEN GIBBS MD 110.4 Dermatophytosis, Of Foot 02/15/2010 ANSON WADE APRN L 110.4 Dermatophytosis, Of Foot 02/15/2010 EMIL ROLON DO K 110.4 Dermatophytosis, Of Foot 03/31/2010 Ot 577.0 03/31/2010 Ot 789.00 04/07/2010 Ot 789.00 04/07/2010 Ot 791.9 04/17/2010 REGINO BOYD DDS 333.99 RESTLESS LEG SYNDROME 04/17/2010 333.99 RESTLESS LEG SYNDROME 04/17/2010 BRENNA LOBATO APRN 333.99 RESTLESS LEG SYNDROME 04/17/2010 EMIL ROLON DO K 333.99 RESTLESS LEG SYNDROME 04/17/2010 ELLY DOUGLAS MD 333.99 RESTLESS LEG SYNDROME 04/17/2010 CARMEN GIBBS MD N 333.99 RESTLESS LEG SYNDROME 04/17/2010 CARMEN GIBBS MD 333.99 RESTLESS LEG SYNDROME 04/17/2010 RAQUEL LOPEZ DDS 333.99 RESTLESS LEG SYNDROME 04/17/2010 ROLON DO, EMIL K 333.99 RESTLESS LEG SYNDROME 04/17/2010 CARMEN GIBBS MD N 333.99 RESTLESS LEG SYNDROME 04/17/2010 CARMEN GIBBS MD N 333.99 RESTLESS LEG SYNDROME 04/17/2010 OSMAN ALVAREZ APRN 333.99 RESTLESS LEG SYNDROME 04/17/2010 ROLON DO, EMIL K 333.99 RESTLESS LEG SYNDROME 04/17/2010 ROLON DO, EMIL K 333.99 RESTLESS LEG SYNDROME 04/17/2010 ROLON DO, EMIL K 333.99 RESTLESS LEG SYNDROME 04/17/2010 OSMAN ALVAREZ APRN 333.99 RESTLESS LEG SYNDROME 04/17/2010 ROLON DO, EMIL K 333.99 RESTLESS LEG SYNDROME 04/17/2010 ROLON DO, EMIL K 333.99 RESTLESS LEG SYNDROME 04/17/2010 EMERY LOBATO APRNRICIA R 333.99 RESTLESS LEG SYNDROME 04/17/2010 SHERI BAUMANN, ANSON L 333.99 RESTLESS LEG SYNDROME 04/17/2010 LUIS ALFREDO BAUMANN BRENNA R 333.99 RESTLESS LEG SYNDROME 04/17/2010 CARMEN GIBBS MD N 333.99 RESTLESS LEG SYNDROME 04/17/2010 ROLON DO, EMIL K 333.99 RESTLESS LEG SYNDROME 04/17/2010 MICHELINE BAUMANN RAQUEL R 333.99 RESTLESS LEG SYNDROME 04/17/2010 CARMEN GIBBS MD N 333.99 RESTLESS LEG SYNDROME 04/17/2010 EMERY LOBATO APRNRICIA R 333.99 RESTLESS LEG SYNDROME 04/17/2010 MICHELINE BAUMANN RAQUEL R 333.99 RESTLESS LEG SYNDROME 04/17/2010 CARMEN GIBBS MD N 333.99 RESTLESS LEG SYNDROME 04/17/2010 SHERI BAUMANN ANSON L 333.99 RESTLESS LEG SYNDROME 04/17/2010 SHERI BAUMANN ANSON L 333.99 RESTLESS LEG SYNDROME 04/17/2010 MICHELINE BAUMANN RAQUEL R 333.99 RESTLESS LEG SYNDROME 04/17/2010 JOSH VILLAVICENCIO, ELLIOT J 333.99 RESTLESS LEG SYNDROME 04/17/2010 CARMEN GIBBS MD N 333.99 RESTLESS LEG SYNDROME 04/17/2010 ROLON DO, EMIL K 333.99 RESTLESS LEG SYNDROME 04/17/2010 SHERI BAUMANN ANSON L 333.99 RESTLESS LEG SYNDROME 04/17/2010 CARMEN GIBBS MD N 333.99 RESTLESS LEG SYNDROME 04/17/2010 CARMEN GIBBS MD 333.99 RESTLESS LEG SYNDROME 04/17/2010 ANSON WADE APRN L 333.99 RESTLESS LEG SYNDROME 04/17/2010 ROLON DO, EMIL K 333.99 RESTLESS LEG SYNDROME 05/22/2010 DEB VILLAVICENCIO, REGINO N 788.31 Urge Incontinence 05/22/2010 788.31 Urge Incontinence 05/22/2010 BRENNA LOBATO APRN R 788.31 Urge Incontinence 05/22/2010 ROLON DO, EMIL K 788.31 Urge Incontinence 05/22/2010 ELLY DOUGLAS MD 788.31 Urge Incontinence 05/22/2010 CARMEN GIBBS MD 788.31 Urge Incontinence 05/22/2010 CARMEN GIBBS MD 788.31 Urge Incontinence 05/22/2010 JESSICA VILLAVICENCIO, RAQUEL Galdamez 788.31 Urge Incontinence 05/22/2010 ROLON DO, EMIL K 788.31 Urge Incontinence 05/22/2010 CARMEN GIBBS MD 788.31 Urge Incontinence 05/22/2010 CARMEN GIBBS MD 788.31 Urge Incontinence 05/22/2010 OSMAN ALVAREZ APRN 788.31 Urge Incontinence 05/22/2010 ROLON DO, EMIL K 788.31 Urge Incontinence 05/22/2010 ROLON DO, EMIL K 788.31 Urge Incontinence 05/22/2010 ROLON DO, EMIL K 788.31 Urge Incontinence 05/22/2010 OSMAN ALVAREZ APRN 788.31 Urge Incontinence 05/22/2010 ROLON DO, EMIL K 788.31 Urge Incontinence 05/22/2010 ROLON DO, EMIL K 788.31 Urge Incontinence 05/22/2010 BRENNA LOBATO APRN R 788.31 Urge Incontinence 05/22/2010 ANSON WADE APRN L 788.31 Urge Incontinence 05/22/2010 BRENNA LOBATO APRN R 788.31 Urge Incontinence 05/22/2010 SAI MD, CARMEN N 788.31 Urge Incontinence 05/22/2010 ROLON DO EMIL K 788.31 Urge Incontinence 05/22/2010 MICHELINE TYPO MACHINE OPERATOR, RAQUEL R 788.31 Urge Incontinence 05/22/2010 CARMEN GIBBS MD N 788.31 Urge Incontinence 05/22/2010 CRISTINO LOBATO APRNIA R 788.31 Urge Incontinence 05/22/2010 MICHELINE TYPO MACHINE OPERATOR, RAQUEL R 788.31 Urge Incontinence 05/22/2010 CARMEN GIBBS MD N 788.31 Urge Incontinence 05/22/2010 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, ANSON L 788.31 Urge Incontinence 05/22/2010 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, ANSON L 788.31 Urge Incontinence 05/22/2010 MICHELINE BAUMANN, RAQUEL R 788.31 Urge Incontinence 05/22/2010 JOSH VILLAVICENCIO, ELLIOT Alston 788.31 Urge Incontinence 05/22/2010 CARMEN GIBBS MD N 788.31 Urge Incontinence 05/22/2010 SUDHIR ROLON DOA K 788.31 Urge Incontinence 05/22/2010 SHERI BAUMANN, ANSON L 788.31 Urge Incontinence 05/22/2010 CARMEN GIBBS MD N 788.31 Urge Incontinence 05/22/2010 CARMEN GIBBS MD N 788.31 Urge Incontinence 05/22/2010 SHERI BAUMANN, ANSON L 788.31 Urge Incontinence 05/22/2010 GONZALES GAMING EMIL K 788.31 Urge Incontinence 05/22/2010 Ot 789.01 06/16/2010 REGINO BOYD DDS 268.9 VITAMIN D DEFICIENCY 06/16/2010 268.9 VITAMIN D DEFICIENCY 06/16/2010 BRENNA LOBATO APRN R 268.9 VITAMIN D DEFICIENCY 06/16/2010 ROLON DO EMIL K 268.9 VITAMIN D DEFICIENCY 06/16/2010 ELLY DOUGLAS MD 268.9 VITAMIN D DEFICIENCY 06/16/2010 CARMEN GIBBS MD N 268.9 VITAMIN D DEFICIENCY 06/16/2010 CARMEN GIBBS MD 268.9 VITAMIN D DEFICIENCY 06/16/2010 RAQUEL LOPEZ DDS 268.9 VITAMIN D DEFICIENCY 06/16/2010 ROLON DO, EMIL K 268.9 VITAMIN D DEFICIENCY 06/16/2010 CARMEN GIBBS MD N 268.9 VITAMIN D DEFICIENCY 06/16/2010 CARMEN GIBBS MD 268.9 VITAMIN D DEFICIENCY 06/16/2010 OSMAN ALVAREZ APRN T 268.9 VITAMIN D DEFICIENCY 06/16/2010 ROLON DO, EMIL K 268.9 VITAMIN D DEFICIENCY 06/16/2010 ROLON DO, EMIL K 268.9 VITAMIN D DEFICIENCY 06/16/2010 ROLON DO, EMIL K 268.9 VITAMIN D DEFICIENCY 06/16/2010 OSMAN ALVAREZ APRN T 268.9 VITAMIN D DEFICIENCY 06/16/2010 ROLON DO, EMIL K 268.9 VITAMIN D DEFICIENCY 06/16/2010 ROLON DO, EMIL K 268.9 VITAMIN D DEFICIENCY 06/16/2010 EMERY LOBATO APRNRICIA R 268.9 VITAMIN D DEFICIENCY 06/16/2010 LETICIA WADE APRNA L 268.9 VITAMIN D DEFICIENCY 06/16/2010 EMERY LOBATO APRNRICIA R 268.9 VITAMIN D DEFICIENCY 06/16/2010 CARMEN GIBBS MD N 268.9 VITAMIN D DEFICIENCY 06/16/2010 ROLON DO, EMIL K 268.9 VITAMIN D DEFICIENCY 06/16/2010 MICHELINE BAUMANN RAQUEL R 268.9 VITAMIN D DEFICIENCY 06/16/2010 CARMEN GIBBS MD N 268.9 VITAMIN D DEFICIENCY 06/16/2010 EMERY LOBATO APRNRICIA R 268.9 VITAMIN D DEFICIENCY 06/16/2010 MICHELINE BAUMANN RAQUEL R 268.9 VITAMIN D DEFICIENCY 06/16/2010 CARMEN GIBBS MD N 268.9 VITAMIN D DEFICIENCY 06/16/2010 SHERI BAUMANN ANSON L 268.9 VITAMIN D DEFICIENCY 06/16/2010 SHERI BAUMANN ANSON L 268.9 VITAMIN D DEFICIENCY 06/16/2010 MICHELINE BAUMANN RAQUEL R 268.9 VITAMIN D DEFICIENCY 06/16/2010 ELLIOT MORENO DDS 268.9 VITAMIN D DEFICIENCY 06/16/2010 CARMEN GIBBS MD N 268.9 VITAMIN D DEFICIENCY 06/16/2010 ROLON DO, EMIL K 268.9 VITAMIN D DEFICIENCY 06/16/2010 SHERI BAUMANN ANSON L 268.9 VITAMIN D DEFICIENCY 06/16/2010 SAI MD, CARMEN N 268.9 VITAMIN D DEFICIENCY 06/16/2010 CARMEN GIBBS MD 268.9 VITAMIN D DEFICIENCY 06/16/2010 ANSON WADE APRN 268.9 VITAMIN D DEFICIENCY 06/16/2010 EMIL ROLON DO K 268.9 VITAMIN D DEFICIENCY 06/20/2010 REGINO BOYD DDS 783.1 Recent Weight Gain (___ Lbs) [reported] 06/20/2010 783.1 Recent Weight Gain (___ Lbs) [reported] 06/20/2010 BRENNA LOBATO APRN 783.1 Recent Weight Gain (___ Lbs) [reported] 06/20/2010 EMIL ROLON DO K 783.1 Recent Weight Gain (___ Lbs) [reported] 06/20/2010 ELLY DOUGLAS MD 783.1 Recent Weight Gain (___ Lbs) [reported] 06/20/2010 CARMEN GIBBS MD 783.1 Recent Weight Gain (___ Lbs) [reported] 06/20/2010 CARMEN GIBBS MD 783.1 Recent Weight Gain (___ Lbs) [reported] 06/20/2010 RAQUEL LOPEZ DDS 783.1 Recent Weight Gain (___ Lbs) [reported] 06/20/2010 EMIL ROLON DO 783.1 Recent Weight Gain (___ Lbs) [reported] 06/20/2010 CARMEN GIBBS MD 783.1 Recent Weight Gain (___ Lbs) [reported] 06/20/2010 CARMEN GIBBS MD 783.1 Recent Weight Gain (___ Lbs) [reported] 06/20/2010 OSMAN ALVAREZ APRN 783.1 Recent Weight Gain (___ Lbs) [reported] 06/20/2010 EMIL ROLON DO K 783.1 Recent Weight Gain (___ Lbs) [reported] 06/20/2010 SUDHIR ROLON DOA K 783.1 Recent Weight Gain (___ Lbs) [reported] 06/20/2010 SUDHIR ROLON DOA K 783.1 Recent Weight Gain (___ Lbs) [reported] 06/20/2010 OSMAN ALVAREZ APRN 783.1 Recent Weight Gain (___ Lbs) [reported] 06/20/2010 EMIL ROLON DO K 783.1 Recent Weight Gain (___ Lbs) [reported] 06/20/2010 GONZALES DOEMIL K 783.1 Recent Weight Gain (___ Lbs) [reported] 06/20/2010 BRENNA LOBATO APRN R 783.1 Recent Weight Gain (___ Lbs) [reported] 06/20/2010 ANSON WADE APRN L 783.1 Recent Weight Gain (___ Lbs) [reported] 06/20/2010 BRENNA LOBATO APRN R 783.1 Recent Weight Gain (___ Lbs) [reported] 06/20/2010 CARMEN GIBBS MD 783.1 Recent Weight Gain (___ Lbs) [reported] 06/20/2010 EMIL ROLON DO K 783.1 Recent Weight Gain (___ Lbs) [reported] 06/20/2010 RAQUEL TOBIAS APRN R 783.1 Recent Weight Gain (___ Lbs) [reported] 06/20/2010 CARMEN GIBBS MD 783.1 Recent Weight Gain (___ Lbs) [reported] 06/20/2010 BRENNA LOBATO APRN R 783.1 Recent Weight Gain (___ Lbs) [reported] 06/20/2010 RAQUEL TOBIAS APRN R 783.1 Recent Weight Gain (___ Lbs) [reported] 06/20/2010 CARMEN GIBBS MD 783.1 Recent Weight Gain (___ Lbs) [reported] 06/20/2010 ANSON WADE APRN L 783.1 Recent Weight Gain (___ Lbs) [reported] 06/20/2010 ANSON WADE APRN L 783.1 Recent Weight Gain (___ Lbs) [reported] 06/20/2010 MALACHI TOBIAS APRNINA R 783.1 Recent Weight Gain (___ Lbs) [reported] 06/20/2010 ELLIOT MORENO DDS 783.1 Recent Weight Gain (___ Lbs) [reported] 06/20/2010 CARMEN GIBBS MD 783.1 Recent Weight Gain (___ Lbs) [reported] 06/20/2010 EMIL ROLON DO 783.1 Recent Weight Gain (___ Lbs) [reported] 06/20/2010 ANSON WADE APRN 783.1 Recent Weight Gain (___ Lbs) [reported] 06/20/2010 CARMEN GIBBS MD 783.1 Recent Weight Gain (___ Lbs) [reported] 06/20/2010 CARMEN GIBBS MD 783.1 Recent Weight Gain (___ Lbs) [reported] 06/20/2010 ANSON WADE APRN 783.1 Recent Weight Gain (___ Lbs) [reported] 06/20/2010 EMIL ROLON DO 783.1 Recent Weight Gain (___ Lbs) [reported] 07/02/2010 Ot 840.9 SPRAIN SHOULDER/ARM NOS 07/02/2010 Ot 959.2 SHLDR/UPPER ARM INJ NOS 07/02/2010 Ot E000.8 OTHER EXTERNAL CAUSE STATUS 07/02/2010 Ot E019.0 ACTIVITIES INVOLVING WALKING AN ANIMAL 07/02/2010 Ot E849.0 ACCIDENT IN HOME 07/02/2010 Ot E888.9 FALL NOS 07/31/2010 Ot 789.06 ABDOMINAL PAIN, EPIGASTRIC 08/03/2010 REGINO BOYD DDS 786.05 Shortness Of Breath 08/03/2010 786.05 Shortness Of Breath 08/03/2010 BRENNA LOBATO APRN 786.05 Shortness Of Breath 08/03/2010 EMIL ROLON DO 786.05 Shortness Of Breath 08/03/2010 ELLY DOUGLAS MD 786.05 Shortness Of Breath 08/03/2010 CARMEN GIBBS MD 786.05 Shortness Of Breath 08/03/2010 CARMEN GIBBS MD 786.05 Shortness Of Breath 08/03/2010 RAQUEL LOPEZ DDS 786.05 Shortness Of Breath 08/03/2010 EMIL ROLON DO 786.05 Shortness Of Breath 08/03/2010 CARMEN GIBBS MD 786.05 Shortness Of Breath 08/03/2010 CARMEN GIBBS MD 786.05 Shortness Of Breath 08/03/2010 KIM BAUMANN OSMAN T 786.05 Shortness Of Breath 08/03/2010 ROLON DO, EMIL K 786.05 Shortness Of Breath 08/03/2010 ROLON DO, EMIL K 786.05 Shortness Of Breath 08/03/2010 ROLON DO, EMIL K 786.05 Shortness Of Breath 08/03/2010 KIM BAUMANN OSMAN T 786.05 Shortness Of Breath 08/03/2010 ROLON DO, EMIL K 786.05 Shortness Of Breath 08/03/2010 ROLON DO, EMIL K 786.05 Shortness Of Breath 08/03/2010 CRISTINO LOBATO APRNIA R 786.05 Shortness Of Breath 08/03/2010 LETICIA WADE APRNA L 786.05 Shortness Of Breath 08/03/2010 EMERY LOBATO APRNRICIA R 786.05 Shortness Of Breath 08/03/2010 CARMEN GIBBS MD 786.05 Shortness Of Breath 08/03/2010 ROLON DO, EMIL K 786.05 Shortness Of Breath 08/03/2010 MICHELINE BAUMANN RAQUEL R 786.05 Shortness Of Breath 08/03/2010 CARMEN GIBBS MD 786.05 Shortness Of Breath 08/03/2010 CRISTINO LOBATO APRNIA R 786.05 Shortness Of Breath 08/03/2010 MICHELINE BAUMANN RAQUEL R 786.05 Shortness Of Breath 08/03/2010 CARMEN GIBBS MD N 786.05 Shortness Of Breath 08/03/2010 CINTHIA WADE APRNWNYA L 786.05 Shortness Of Breath 08/03/2010 CINTHIA WADE APRNWNYA L 786.05 Shortness Of Breath 08/03/2010 MICHELINE BAUMANN RAQUEL R 786.05 Shortness Of Breath 08/03/2010 JOSH JETERS, ELLIOT J 786.05 Shortness Of Breath 08/03/2010 CARMEN GIBBS MD 786.05 Shortness Of Breath 08/03/2010 ROLON DO, EMIL K 786.05 Shortness Of Breath 08/03/2010 CINTHIA WADE APRNWNYA L 786.05 Shortness Of Breath 08/03/2010 SAI MD, CARMEN N 786.05 Shortness Of Breath 08/03/2010 SAI PARISH, CARMEN Christie 786.05 Shortness Of Breath 08/03/2010 SHERI BAUMANN ANSON L 786.05 Shortness Of Breath 08/03/2010 ROLON DO, EMIL K 786.05 Shortness Of Breath 08/22/2010 MUOGHALU DDS, REGINO N 272.4 HYPERLIPIDEMIA 08/22/2010 MUOGHALU DDS, REGINO N 706.8 Xerosis 08/22/2010 272.4 HYPERLIPIDEMIA 08/22/2010 706.8 Xerosis 08/22/2010 LUIS ALFREDO BAUMANN, BRENNA R 272.4 HYPERLIPIDEMIA 08/22/2010 LUIS ALFREDO BAUMANN, BRENNA R 706.8 Xerosis 08/22/2010 ROLON DO, EMIL K 272.4 HYPERLIPIDEMIA 08/22/2010 ROLON DO, EMIL K 706.8 Xerosis 08/22/2010 ELLY DOUGLAS MD 272.4 HYPERLIPIDEMIA 08/22/2010 ELLY DOUGLAS MD 706.8 Xerosis 08/22/2010 CARMEN GIBBS MD N 272.4 HYPERLIPIDEMIA 08/22/2010 CARMEN GIBBS MD 706.8 Xerosis 08/22/2010 CARMEN GIBBS MD N 272.4 HYPERLIPIDEMIA 08/22/2010 CARMEN GIBBS MD N 706.8 Xerosis 08/22/2010 JESSICA DDS, RAQUEL Galdamez 272.4 HYPERLIPIDEMIA 08/22/2010 JESSICA JETERS, RAQUEL Galdamez 706.8 Xerosis 08/22/2010 ROLON DO, EMIL K 272.4 HYPERLIPIDEMIA 08/22/2010 ROLON DO, EMIL K 706.8 Xerosis 08/22/2010 CARMEN GIBBS MD N 272.4 HYPERLIPIDEMIA 08/22/2010 CARMEN GIBBS MD 706.8 Xerosis 08/22/2010 CARMEN GIBBS MD N 272.4 HYPERLIPIDEMIA 08/22/2010 CARMEN GIBBS MD N 706.8 Xerosis 08/22/2010 OSMAN ALVAREZ APRN 272.4 HYPERLIPIDEMIA 08/22/2010 OSMAN ALVAREZ APRN 706.8 Xerosis 08/22/2010 ROLON DO, EMIL K 272.4 HYPERLIPIDEMIA 08/22/2010 ROLON DO, EMIL K 706.8 Xerosis 08/22/2010 ROLON DO, EMIL K 272.4 HYPERLIPIDEMIA 08/22/2010 ROLON DO, EMIL K 706.8 Xerosis 08/22/2010 ROLON DO, EMIL K 272.4 HYPERLIPIDEMIA 08/22/2010 ROLON DO, EMIL K 706.8 Xerosis 08/22/2010 KIM TYPO MACHINE OPERATOR, OSMAN T 272.4 HYPERLIPIDEMIA 08/22/2010 KIM TYPO MACHINE OPERATOR OSMAN T 706.8 Xerosis 08/22/2010 ROLON DO, EMIL K 272.4 HYPERLIPIDEMIA 08/22/2010 ROLON DO, EMIL K 706.8 Xerosis 08/22/2010 ROLON DO, EMIL K 272.4 HYPERLIPIDEMIA 08/22/2010 ROLON DO, EMIL K 706.8 Xerosis 08/22/2010 LUIS ALFREDO TYPO MACHINE OPERATOR, BRENNA R 272.4 HYPERLIPIDEMIA 08/22/2010 LOBATO TYPO MACHINE OPERATOR, BRENNA R 706.8 Xerosis 08/22/2010 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, ANSON L 272.4 HYPERLIPIDEMIA 08/22/2010 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, ANSON L 706.8 Xerosis 08/22/2010 LUIS ALFREDO BAUMANN, BRENNA R 272.4 HYPERLIPIDEMIA 08/22/2010 LUIS ALFREDO BAUMANN, BRENNA R 706.8 Xerosis 08/22/2010 SAI PARISH, CARMEN N 272.4 HYPERLIPIDEMIA 08/22/2010 SAI PARISH, CARMEN N 706.8 Xerosis 08/22/2010 ROLON DO, EMIL K 272.4 HYPERLIPIDEMIA 08/22/2010 ROLON DO, EMIL K 706.8 Xerosis 08/22/2010 MICHELINE BAUMANN RAQUEL R 272.4 HYPERLIPIDEMIA 08/22/2010 MICHELINE BAUMANN, RAQUEL R 706.8 Xerosis 08/22/2010 CARMEN GIBBS MD N 272.4 HYPERLIPIDEMIA 08/22/2010 SAI PARISH, CARMEN N 706.8 Xerosis 08/22/2010 LUIS ALFREDO BAUMANN, BRENNA R 272.4 HYPERLIPIDEMIA 08/22/2010 LUIS ALFREDO BAUMANN, BRENNA R 706.8 Xerosis 08/22/2010 MICHELINE BAUMANN, RAQUEL R 272.4 HYPERLIPIDEMIA 08/22/2010 MICHELINE BAUMANN, RAQUEL R 706.8 Xerosis 08/22/2010 CARMEN GIBBS MD N 272.4 HYPERLIPIDEMIA 08/22/2010 CARMEN GIBBS MD N 706.8 Xerosis 08/22/2010 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, ANSON L 272.4 HYPERLIPIDEMIA 08/22/2010 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, ANSON L 706.8 Xerosis 08/22/2010 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, ANSON L 272.4 HYPERLIPIDEMIA 08/22/2010 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, ANSON L 706.8 Xerosis 08/22/2010 MICHELINE TYPO MACHINE OPERATOR, RAQUEL R 272.4 HYPERLIPIDEMIA 08/22/2010 MICHELINE TYPO MACHINE OPERATOR, RAQUEL R 706.8 Xerosis 08/22/2010 WHITE DDS, ELLIOT J 272.4 HYPERLIPIDEMIA 08/22/2010 WHITE DDS, ELLIOT J 706.8 Xerosis 08/22/2010 CARMEN GIBBS MD N 272.4 HYPERLIPIDEMIA 08/22/2010 CARMEN GIBBS MD N 706.8 Xerosis 08/22/2010 ROLON DO, EMIL K 272.4 HYPERLIPIDEMIA 08/22/2010 ROLON DO, EMIL K 706.8 Xerosis 08/22/2010 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, ANSON L 272.4 HYPERLIPIDEMIA 08/22/2010 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, ANSON L 706.8 Xerosis 08/22/2010 CARMEN GIBBS MD N 272.4 HYPERLIPIDEMIA 08/22/2010 CARMEN GIBBS MD N 706.8 Xerosis 08/22/2010 CARMEN GIBBS MD N 272.4 HYPERLIPIDEMIA 08/22/2010 CARMEN GIBBS MD N 706.8 Xerosis 08/22/2010 [facility] ANSON L 272.4 HYPERLIPIDEMIA 08/22/2010 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, ANSON L 706.8 Xerosis 08/22/2010 ROLON DO, EMIL K 272.4 HYPERLIPIDEMIA 08/22/2010 ROLON DO, EMIL K 706.8 Xerosis 08/30/2010 Ot 530.81 ESOPHAGEAL REFLUX 08/30/2010 Ot 535.50 UNSP GASTRITIS GASTRODUODENITIS W/O ME 08/30/2010 Ot 789.06 ABDOMINAL PAIN, EPIGASTRIC 09/06/2010 Ot 577.0 ACUTE PANCREATITIS 09/06/2010 Ot 789.09 ABDOMINAL PAIN, OTHER SPECIFIED SITE 09/16/2010 Ot 276.51 DEHYDRATION 09/16/2010 Ot 780.4 DIZZINESS AND GIDDINESS 09/16/2010 Ot 784.0 HEADACHE 09/20/2010 REGINO BODY DDS 787.01 Nausea With Vomiting 09/20/2010 787.01 Nausea With Vomiting 09/20/2010 BRENNA LOBATO APRN R 787.01 Nausea With Vomiting 09/20/2010 ROLON DO, EMIL K 787.01 Nausea With Vomiting 09/20/2010 ELLY DOUGLAS MD 787.01 Nausea With Vomiting 09/20/2010 CARMEN GIBBS MD 787.01 Nausea With Vomiting 09/20/2010 CARMEN GIBBS MD 787.01 Nausea With Vomiting 09/20/2010 RAQUEL LOPEZ DDS 787.01 Nausea With Vomiting 09/20/2010 ROLON DO, EMIL K 787.01 Nausea With Vomiting 09/20/2010 CARMEN GIBBS MD 787.01 Nausea With Vomiting 09/20/2010 CARMEN GIBBS MD 787.01 Nausea With Vomiting 09/20/2010 OSMAN ALVAREZ APRN 787.01 Nausea With Vomiting 09/20/2010 ROLON DO, EMIL K 787.01 Nausea With Vomiting 09/20/2010 ROLON DO, EMIL K 787.01 Nausea With Vomiting 09/20/2010 ROLON DO, EMIL K 787.01 Nausea With Vomiting 09/20/2010 OSMAN ALVAREZ APRN 787.01 Nausea With Vomiting 09/20/2010 ROLON DO, EMIL K 787.01 Nausea With Vomiting 09/20/2010 ROLON DO, EMIL K 787.01 Nausea With Vomiting 09/20/2010 BRENNA LOBATO APRN R 787.01 Nausea With Vomiting 09/20/2010 ANSON WADE APRN 787.01 Nausea With Vomiting 09/20/2010 BRENNA LOBATO APRN R 787.01 Nausea With Vomiting 09/20/2010 CARMEN GIBBS MD 787.01 Nausea With Vomiting 09/20/2010 ROLON DO, EMIL K 787.01 Nausea With Vomiting 09/20/2010 MALACHI TOBISA APRNINA R 787.01 Nausea With Vomiting 09/20/2010 CARMEN GIBBS MD 787.01 Nausea With Vomiting 09/20/2010 BRENNA LOBATO APRN R 787.01 Nausea With Vomiting 09/20/2010 RAQUEL TOBIAS APRN R 787.01 Nausea With Vomiting 09/20/2010 CARMEN GIBBS MD 787.01 Nausea With Vomiting 09/20/2010 ANSON WADE APRN L 787.01 Nausea With Vomiting 09/20/2010 ANSON WADE APRN L 787.01 Nausea With Vomiting 09/20/2010 RAQUEL TOBIAS APRN R 787.01 Nausea With Vomiting 09/20/2010 ELLIOT MORENO DDS 787.01 Nausea With Vomiting 09/20/2010 CARMEN GIBBS MD 787.01 Nausea With Vomiting 09/20/2010 EMIL ROLON DO 787.01 Nausea With Vomiting 09/20/2010 ANSON WADE APRN L 787.01 Nausea With Vomiting 09/20/2010 CARMEN GIBBS MD 787.01 Nausea With Vomiting 09/20/2010 CARMEN GIBBS MD 787.01 Nausea With Vomiting 09/20/2010 ANSON WADE APRN L 787.01 Nausea With Vomiting 09/20/2010 EMIL ROLON DO 787.01 Nausea With Vomiting 09/20/2010 Ot 558.9 NONINF GASTROENTERIT NEC 09/20/2010 Ot 789.09 ABDOMINAL PAIN, OTHER SPECIFIED SITE 09/23/2010 Ot 536.2 PERSISTENT VOMITING 09/23/2010 Ot 577.1 CHRONIC PANCREATITIS 09/23/2010 Ot V58.69 OT MED,LT, CURRENT USE 09/28/2010 REGINO BOYD DDS 577.1 CHRONIC PANCREATITIS 09/28/2010 577.1 CHRONIC PANCREATITIS 09/28/2010 BRENNA LOBATO APRN R 577.1 CHRONIC PANCREATITIS 09/28/2010 EMIL ROLON DO 577.1 CHRONIC PANCREATITIS 09/28/2010 ELLY DOUGLAS MD 577.1 CHRONIC PANCREATITIS 09/28/2010 CARMEN GIBBS MD 577.1 CHRONIC PANCREATITIS 09/28/2010 CARMEN GIBBS MD 577.1 CHRONIC PANCREATITIS 09/28/2010 RAQUEL LOPEZ DDS 577.1 CHRONIC PANCREATITIS 09/28/2010 ROLON DO, EMIL K 577.1 CHRONIC PANCREATITIS 09/28/2010 CARMEN GIBBS MD N 577.1 CHRONIC PANCREATITIS 09/28/2010 CARMEN GIBBS MD 577.1 CHRONIC PANCREATITIS 09/28/2010 OSMAN ALVAREZ APRN T 577.1 CHRONIC PANCREATITIS 09/28/2010 ROLON DO, EMIL K 577.1 CHRONIC PANCREATITIS 09/28/2010 ROLON DO, EMIL K 577.1 CHRONIC PANCREATITIS 09/28/2010 ROLON DO, EMIL K 577.1 CHRONIC PANCREATITIS 09/28/2010 OSMAN ALVAREZ APRN T 577.1 CHRONIC PANCREATITIS 09/28/2010 ROLON DO, EMIL K 577.1 CHRONIC PANCREATITIS 09/28/2010 ROLON DO, EMIL K 577.1 CHRONIC PANCREATITIS 09/28/2010 LUIS ALFREDO BAUMANN BRENNA R 577.1 CHRONIC PANCREATITIS 09/28/2010 SHERI TYPO MACHINE OPERATOR, ANSON L 577.1 CHRONIC PANCREATITIS 09/28/2010 LUIS ALFREDO BAUMANN BRENNA R 577.1 CHRONIC PANCREATITIS 09/28/2010 CARMEN GIBBS MD 577.1 CHRONIC PANCREATITIS 09/28/2010 ROLON DO, EMIL K 577.1 CHRONIC PANCREATITIS 09/28/2010 MICHELINE BAUMANN, RAQUEL R 577.1 CHRONIC PANCREATITIS 09/28/2010 CARMEN GIBBS MD 577.1 CHRONIC PANCREATITIS 09/28/2010 LUIS ALFREDO BAUMANN BRENNA R 577.1 CHRONIC PANCREATITIS 09/28/2010 MICHELINE BAUMANN, RAQUEL R 577.1 CHRONIC PANCREATITIS 09/28/2010 CARMEN GIBBS MD 577.1 CHRONIC PANCREATITIS 09/28/2010 SHERI TYPO MACHINE OPERATOR, ANSON L 577.1 CHRONIC PANCREATITIS 09/28/2010 JOSE FRANCISCOL TYPO MACHINE OPERATOR, ANSON L 577.1 CHRONIC PANCREATITIS 09/28/2010 MICHELINE BAUMANN, RAQUEL R 577.1 CHRONIC PANCREATITIS 09/28/2010 ELLIOT MORENO DDS 577.1 CHRONIC PANCREATITIS 09/28/2010 CARMEN GIBBS MD 577.1 CHRONIC PANCREATITIS 09/28/2010 ROLON DO, EMIL K 577.1 CHRONIC PANCREATITIS 09/28/2010 SHERI BAUMANN ANSON L 577.1 CHRONIC PANCREATITIS 09/28/2010 CARMEN GIBBS MD 57Ana Lilia.1 CHRONIC PANCREATITIS 09/28/2010 CARMEN GIBBS MD 577.1 CHRONIC PANCREATITIS 09/28/2010 ANSON WADE APRN 577.1 CHRONIC PANCREATITIS 09/28/2010 ROLON DO EMIL K 577.1 CHRONIC PANCREATITIS 09/29/2010 Ot 786.50 CHEST PAIN NOS 09/29/2010 Ot 786.52 PAINFUL RESPIRATION 10/01/2010 Ot 787.03 VOMITING ALONE 10/01/2010 Ot 789.06 ABDOMINAL PAIN, EPIGASTRIC 10/04/2010 REGINO BOYD DDS 780.4 Dizziness And Vertigo 10/04/2010 780.4 Dizziness And Vertigo 10/04/2010 BRENNA LOBATO APRN 780.4 Dizziness And Vertigo 10/04/2010 ROLON DO EMIL K 780.4 Dizziness And Vertigo 10/04/2010 ELLY DOUGLAS MD 780.4 Dizziness And Vertigo 10/04/2010 CARMEN GIBBS MD 780.4 Dizziness And Vertigo 10/04/2010 CARMEN GIBBS MD 780.4 Dizziness And Vertigo 10/04/2010 RAQUEL LOPEZ DDS 780.4 Dizziness And Vertigo 10/04/2010 ROLON DO EMIL K 780.4 Dizziness And Vertigo 10/04/2010 CARMEN GIBBS MD 780.4 Dizziness And Vertigo 10/04/2010 CARMEN GIBBS MD 780.4 Dizziness And Vertigo 10/04/2010 OSMAN ALVAREZ APRN 780.4 Dizziness And Vertigo 10/04/2010 ROLON DO, EMIL K 780.4 Dizziness And Vertigo 10/04/2010 ROLON DO, EMIL K 780.4 Dizziness And Vertigo 10/04/2010 ROLON DO, EMIL K 780.4 Dizziness And Vertigo 10/04/2010 OSMAN ALVAREZ APRN 780.4 Dizziness And Vertigo 10/04/2010 ROLON DO, EMIL K 780.4 Dizziness And Vertigo 10/04/2010 ROLON DO, EMIL K 780.4 Dizziness And Vertigo 10/04/2010 BRENNA LOBATO APRN R 780.4 Dizziness And Vertigo 10/04/2010 ANSON WADE APRN 780.4 Dizziness And Vertigo 10/04/2010 BRENNA LOBATO APRN R 780.4 Dizziness And Vertigo 10/04/2010 CARMEN GIBBS MD 780.4 Dizziness And Vertigo 10/04/2010 SUDHIR ROLON DOA K 780.4 Dizziness And Vertigo 10/04/2010 MICHELINE BAUMANN RAQUEL R 780.4 Dizziness And Vertigo 10/04/2010 CARMEN GIBBS MD 780.4 Dizziness And Vertigo 10/04/2010 BRENNA LOBATO APRN R 780.4 Dizziness And Vertigo 10/04/2010 MALACHI TOBIAS APRNINA R 780.4 Dizziness And Vertigo 10/04/2010 CARMEN GIBBS MD 780.4 Dizziness And Vertigo 10/04/2010 ANSON WADE APRN L 780.4 Dizziness And Vertigo 10/04/2010 ANSON WADE APRN L 780.4 Dizziness And Vertigo 10/04/2010 MALACHI TOBIAS APRNINA R 780.4 Dizziness And Vertigo 10/04/2010 JOSH VILLAVICENCIO, ELLIOT Alston 780.4 Dizziness And Vertigo 10/04/2010 CARMEN GIBBS MD 780.4 Dizziness And Vertigo 10/04/2010 EMIL ROLON DO K 780.4 Dizziness And Vertigo 10/04/2010 ANSON WADE APRN L 780.4 Dizziness And Vertigo 10/04/2010 CARMEN GIBBS MD 780.4 Dizziness And Vertigo 10/04/2010 CARMEN GIBBS MD 780.4 Dizziness And Vertigo 10/04/2010 ANSON WADE APRN L 780.4 Dizziness And Vertigo 10/04/2010 ROLON SUDHIR GAMINGA K 780.4 Dizziness And Vertigo 10/07/2010 Ot 780.4 DIZZINESS AND GIDDINESS 10/25/2010 REGINO BOYD DDS 782.3 Edema 10/25/2010 782.3 Edema 10/25/2010 BRENNA LOBATO APRN R 782.3 Edema 10/25/2010 ROLON DO EMIL K 782.3 Edema 10/25/2010 ELLY DOUGLAS MD 782.3 Edema 10/25/2010 CARMEN GIBBS MD 782.3 Edema 10/25/2010 CARMEN GIBBS MD 782.3 Edema 10/25/2010 JESSICA VILLAVICENCIO, RAQUEL Galdamez 782.3 Edema 10/25/2010 ROLON DO, EMIL K 782.3 Edema 10/25/2010 CARMEN GIBBS MD N 782.3 Edema 10/25/2010 CARMEN GIBBS MD N 782.3 Edema 10/25/2010 OSMAN ALVAREZ APRN T 782.3 Edema 10/25/2010 ROLON DO, EMIL K 782.3 Edema 10/25/2010 ROLON DO, EMIL K 782.3 Edema 10/25/2010 ROLON DO, EMIL K 782.3 Edema 10/25/2010 OSMAN ALVAREZ APRN T 782.3 Edema 10/25/2010 ROLON DO, EMIL K 782.3 Edema 10/25/2010 ROLON DO, EMIL K 782.3 Edema 10/25/2010 LUIS ALFREDO BAUMANN, BRENNA R 782.3 Edema 10/25/2010 SHERI BAUMANN, ANSON L 782.3 Edema 10/25/2010 EMERY LOBATO APRNRICIA R 782.3 Edema 10/25/2010 CARMEN GIBBS MD N 782.3 Edema 10/25/2010 ROLON DO, EMIL K 782.3 Edema 10/25/2010 MICHELINE BAUAMNN, RAQUEL R 782.3 Edema 10/25/2010 CARMEN GIBBS MD N 782.3 Edema 10/25/2010 CRISTINO LOBATO APRNIA R 782.3 Edema 10/25/2010 MICHELINE BAUMANN RAQUEL R 782.3 Edema 10/25/2010 CARMEN GIBBS MD N 782.3 Edema 10/25/2010 LETICIA WADE APRNA L 782.3 Edema 10/25/2010 SHERI BAUMANN, ANSON L 782.3 Edema 10/25/2010 MICHELINE BAUMANN RAQUEL R 782.3 Edema 10/25/2010 ELLIOT MORENO DDS 782.3 Edema 10/25/2010 CARMEN GIBBS MD N 782.3 Edema 10/25/2010 ROLON DO, EMIL K 782.3 Edema 10/25/2010 LETICIA WADE APRNA L 782.3 Edema 10/25/2010 CARMEN GIBBS MD N 782.3 Edema 10/25/2010 CARMEN GIBBS MD N 782.3 Edema 10/25/2010 SHERI BAUMANNANSON Benji 782.3 Edema 10/25/2010 EMIL ROLON DO K 782.3 Edema 11/13/2010 Ot 525.9 DENTAL DISORDER NOS 11/16/2010 Ot 525.9 DENTAL DISORDER NOS 12/08/2010 Ot 786.52 PAINFUL RESPIRATION 12/08/2010 Ot 789.06 ABDOMINAL PAIN, EPIGASTRIC 12/27/2010 MUOGHALU DDS, REGINO N 599.70 Hematuria Unspecified 12/27/2010 MUOGHALU DDS, REGINO N 789.01 Abdominal Pain Right Upper Quadrant 12/27/2010 599.70 Hematuria Unspecified 12/27/2010 789.01 Abdominal Pain Right Upper Quadrant 12/27/2010 BRENNA LOBATO APRN R 599.70 Hematuria Unspecified 12/27/2010 BRENNA LOBATO APRN R 789.01 Abdominal Pain Right Upper Quadrant 12/27/2010 EMIL ROLON DO K 599.70 Hematuria Unspecified 12/27/2010 EMIL ROLON DO 789.01 Abdominal Pain Right Upper Quadrant 12/27/2010 ELLY DOUGLAS MD 599.70 Hematuria Unspecified 12/27/2010 ELLY DOUGLAS MD 789.01 Abdominal Pain Right Upper Quadrant 12/27/2010 CARMEN GIBBS MD 599.70 Hematuria Unspecified 12/27/2010 CARMEN GIBBS MD 789.01 Abdominal Pain Right Upper Quadrant 12/27/2010 CARMEN GIBBS MD 599.70 Hematuria Unspecified 12/27/2010 CARMEN GIBBS MD 789.01 Abdominal Pain Right Upper Quadrant 12/27/2010 RAQUEL LOPEZ DDS 599.70 Hematuria Unspecified 12/27/2010 RAQUEL LOPEZ DDS 789.01 Abdominal Pain Right Upper Quadrant 12/27/2010 EMIL ROLON DO 599.70 Hematuria Unspecified 12/27/2010 EMIL ROLON DO 789.01 Abdominal Pain Right Upper Quadrant 12/27/2010 CARMEN GIBBS MD 599.70 Hematuria Unspecified 12/27/2010 CARMEN GIBBS MD 789.01 Abdominal Pain Right Upper Quadrant 12/27/2010 CARMEN GIBBS MD N 599.70 Hematuria Unspecified 12/27/2010 CARMEN GIBBS MD N 789.01 Abdominal Pain Right Upper Quadrant 12/27/2010 OSMAN ALVAREZ APRN T 599.70 Hematuria Unspecified 12/27/2010 OSMAN ALVAREZ APRN T 789.01 Abdominal Pain Right Upper Quadrant 12/27/2010 ROLON DO, EMIL K 599.70 Hematuria Unspecified 12/27/2010 ROLON DO, EMIL K 789.01 Abdominal Pain Right Upper Quadrant 12/27/2010 ROLON DO, EMIL K 599.70 Hematuria Unspecified 12/27/2010 ROLON DO, EMIL K 789.01 Abdominal Pain Right Upper Quadrant 12/27/2010 ROLON DO, EMIL K 599.70 Hematuria Unspecified 12/27/2010 ROLON DO, EMIL K 789.01 Abdominal Pain Right Upper Quadrant 12/27/2010 OSMAN ALVAREZ APRN T 599.70 Hematuria Unspecified 12/27/2010 OSMAN ALVAREZ APRN 789.01 Abdominal Pain Right Upper Quadrant 12/27/2010 ROLON DO, EMIL K 599.70 Hematuria Unspecified 12/27/2010 ROLON DO, EMIL K 789.01 Abdominal Pain Right Upper Quadrant 12/27/2010 ROLON DO, EMIL K 599.70 Hematuria Unspecified 12/27/2010 ROLON DO, EMIL K 789.01 Abdominal Pain Right Upper Quadrant 12/27/2010 BRENNA LOBATO APRN R 599.70 Hematuria Unspecified 12/27/2010 BRENNA LOBATO APRN R 789.01 Abdominal Pain Right Upper Quadrant 12/27/2010 LETICIA WADE APRNA L 599.70 Hematuria Unspecified 12/27/2010 LETICIA WADE APRNA L 789.01 Abdominal Pain Right Upper Quadrant 12/27/2010 CRISTINO LOBATO APRNIA R 599.70 Hematuria Unspecified 12/27/2010 BRENNA LOBATO APRN R 789.01 Abdominal Pain Right Upper Quadrant 12/27/2010 CARMEN GIBBS MD N 599.70 Hematuria Unspecified 12/27/2010 CARMEN GIBBS MD N 789.01 Abdominal Pain Right Upper Quadrant 12/27/2010 ROLON DO, EMIL K 599.70 Hematuria Unspecified 12/27/2010 ROLON DO, EMIL K 789.01 Abdominal Pain Right Upper Quadrant 12/27/2010 MICHELINE BAUMANN, RAQUEL R 599.70 Hematuria Unspecified 12/27/2010 MICHELINE BAUMANN, RAQUEL R 789.01 Abdominal Pain Right Upper Quadrant 12/27/2010 CARMEN GIBBS MD N 599.70 Hematuria Unspecified 12/27/2010 CARMEN GIBBS MD N 789.01 Abdominal Pain Right Upper Quadrant 12/27/2010 EMERY LOBATO APRNRICIA R 599.70 Hematuria Unspecified 12/27/2010 EMERY LOBATO APRNRICIA R 789.01 Abdominal Pain Right Upper Quadrant 12/27/2010 MALACHI TOBIAS APRNINA R 599.70 Hematuria Unspecified 12/27/2010 MICHELINE BAUMANN RAQUEL R 789.01 Abdominal Pain Right Upper Quadrant 12/27/2010 CARMEN GIBBS MD N 599.70 Hematuria Unspecified 12/27/2010 CARMEN GIBBS MD N 789.01 Abdominal Pain Right Upper Quadrant 12/27/2010 SHERI TYPO MACHINE OPERATOR, ANSON L 599.70 Hematuria Unspecified 12/27/2010 MADBenji TYPO MACHINE OPERATOR, ANSON L 789.01 Abdominal Pain Right Upper Quadrant 12/27/2010 SHERI BAUMANN, ANSON L 599.70 Hematuria Unspecified 12/27/2010 SHERI TYPO MACHINE OPERATOR, ANSON L 789.01 Abdominal Pain Right Upper Quadrant 12/27/2010 MICHELINE BAUMANN RAQUEL R 599.70 Hematuria Unspecified 12/27/2010 MICHELINE BAUMANN RAQUEL R 789.01 Abdominal Pain Right Upper Quadrant 12/27/2010 WHITE DDS, ELLIOT J 599.70 Hematuria Unspecified 12/27/2010 WHITE DDS, ELLIOT J 789.01 Abdominal Pain Right Upper Quadrant 12/27/2010 CARMEN GIBBS MD N 599.70 Hematuria Unspecified 12/27/2010 CARMEN GIBBS MD N 789.01 Abdominal Pain Right Upper Quadrant 12/27/2010 GONZALES GAMING EMIL K 599.70 Hematuria Unspecified 12/27/2010 ROLON DO EMIL K 789.01 Abdominal Pain Right Upper Quadrant 12/27/2010 CINTHIA WADE APRNWNYA L 599.70 Hematuria Unspecified 12/27/2010 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, ANSON L 789.01 Abdominal Pain Right Upper Quadrant 12/27/2010 CARMEN GIBBS MD N 599.70 Hematuria Unspecified 12/27/2010 CARMEN GIBBS MD N 789.01 Abdominal Pain Right Upper Quadrant 12/27/2010 CARMEN GIBBS MD N 599.70 Hematuria Unspecified 12/27/2010 CARMEN GIBBS MD 789.01 Abdominal Pain Right Upper Quadrant 12/27/2010 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, ANSON L 599.70 Hematuria Unspecified 12/27/2010 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, ANSON L 789.01 Abdominal Pain Right Upper Quadrant 12/27/2010 ROLON DO, EMIL K 599.70 Hematuria Unspecified 12/27/2010 ROLON DO, EMIL K 789.01 Abdominal Pain Right Upper Quadrant 12/30/2010 Ot 571.8 CHRONIC LIVER DIS NEC 12/30/2010 Ot 599.0 URIN TRACT INFECTION NOS 12/30/2010 Ot 789.00 ABDOMINAL PAIN, UNSPECIFIED SITE 01/10/2011 Ot 786.50 CHEST PAIN NOS 01/10/2011 Ot 786.52 PAINFUL RESPIRATION 01/11/2011 REGINO BOYD DDS 786.52 Chest Wall Pain 01/11/2011 786.52 Chest Wall Pain 01/11/2011 BRENNA LOBATO APRN 786.52 Chest Wall Pain 01/11/2011 ROLON , EMIL K 786.52 Chest Wall Pain 01/11/2011 ELLY DOUGLAS MD 786.52 Chest Wall Pain 01/11/2011 CARMEN GIBBS MD 786.52 Chest Wall Pain 01/11/2011 CARMEN GIBBS MD 786.52 Chest Wall Pain 01/11/2011 RAQUEL LOPEZ DDS 786.52 Chest Wall Pain 01/11/2011 ROLON DO EMIL K 786.52 Chest Wall Pain 01/11/2011 CARMEN GIBBS MD 786.52 Chest Wall Pain 01/11/2011 CARMEN GIBBS MD 786.52 Chest Wall Pain 01/11/2011 OSMAN ALVAREZ APRN 786.52 Chest Wall Pain 01/11/2011 ROLON DO EMIL K 786.52 Chest Wall Pain 01/11/2011 ROLON DO, EMIL K 786.52 Chest Wall Pain 01/11/2011 ROLON DO, EMIL K 786.52 Chest Wall Pain 01/11/2011 OSMAN ALVAREZ APRN 786.52 Chest Wall Pain 01/11/2011 ROLON DO, EMIL K 786.52 Chest Wall Pain 01/11/2011 ROLON DO, EMIL K 786.52 Chest Wall Pain 01/11/2011 LUIS ALFREDO BAUMANN, BRENNA R 786.52 Chest Wall Pain 01/11/2011 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, ANSON L 786.52 Chest Wall Pain 01/11/2011 LUIS ALFREDO BAUMANN BRENNA R 786.52 Chest Wall Pain 01/11/2011 CARMEN GIBBS MD 786.52 Chest Wall Pain 01/11/2011 ROLON DO, EMIL K 786.52 Chest Wall Pain 01/11/2011 MICHELINE BAUMANN RAQUEL R 786.52 Chest Wall Pain 01/11/2011 CARMEN GIBBS MD 786.52 Chest Wall Pain 01/11/2011 EMERY LOBATO APRNRICIA R 786.52 Chest Wall Pain 01/11/2011 MICHELINE BAUMANN RAQUEL R 786.52 Chest Wall Pain 01/11/2011 CARMEN GIBBS MD 786.52 Chest Wall Pain 01/11/2011 SHERI TYPO MACHINE OPERATOR, ANSON L 786.52 Chest Wall Pain 01/11/2011 SHERI TYPO MACHINE OPERATOR, ANSON L 786.52 Chest Wall Pain 01/11/2011 MICHELINE BAUMANN RAQUEL R 786.52 Chest Wall Pain 01/11/2011 WHITE DDS, ELLIOT J 786.52 Chest Wall Pain 01/11/2011 CARMEN GIBBS MD 786.52 Chest Wall Pain 01/11/2011 ROLON DO, EMIL K 786.52 Chest Wall Pain 01/11/2011 MADBenji TYPO MACHINE OPERATOR, ANSON L 786.52 Chest Wall Pain 01/11/2011 CARMEN GIBBS MD 786.52 Chest Wall Pain 01/11/2011 CARMEN GIBBS MD 786.52 Chest Wall Pain 01/11/2011 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, ANSON L 786.52 Chest Wall Pain 01/11/2011 ROLON DO, EMIL K 786.52 Chest Wall Pain 01/14/2011 Ot 338.29 OTHER CHRONIC PAIN 01/14/2011 Ot 401.9 HYPERTENSION NOS 01/14/2011 Ot 564.00 UNSPEC CONSTIPATION 01/14/2011 Ot 786.50 CHEST PAIN NOS 01/14/2011 Ot 789.00 ABDOMINAL PAIN, UNSPECIFIED SITE 01/15/2011 REGINO BOYD DDS N 564.00 Constipation 01/15/2011 REGINO BOYD DDS N 780.52 INSOMNIA UNSPECIFIED 01/15/2011 564.00 Constipation 01/15/2011 780.52 INSOMNIA UNSPECIFIED 01/15/2011 BRENNA LOBATO APRN R 564.00 Constipation 01/15/2011 BRENNA LOBATO APRN R 780.52 INSOMNIA UNSPECIFIED 01/15/2011 ROLON DO EMIL K 564.00 Constipation 01/15/2011 SUDHIR ROLON DOA K 780.52 INSOMNIA UNSPECIFIED 01/15/2011 ELLY DOUGLAS MD 564.00 Constipation 01/15/2011 ELLY DOUGLAS MD 780.52 INSOMNIA UNSPECIFIED 01/15/2011 CARMEN GIBBS MD 564.00 Constipation 01/15/2011 CARMEN GIBBS MD 780.52 INSOMNIA UNSPECIFIED 01/15/2011 CARMEN GIBBS MD 564.00 Constipation 01/15/2011 CARMEN GIBBS MD 780.52 INSOMNIA UNSPECIFIED 01/15/2011 RAQUEL LOPEZ DDS 564.00 Constipation 01/15/2011 RAQUEL LOPEZ DDS 780.52 INSOMNIA UNSPECIFIED 01/15/2011 SUDHIR ROLON DOA K 564.00 Constipation 01/15/2011 GONZALES GAMING EMIL K 780.52 INSOMNIA UNSPECIFIED 01/15/2011 CARMEN GIBBS MD 564.00 Constipation 01/15/2011 CARMEN GIBBS MD 780.52 INSOMNIA UNSPECIFIED 01/15/2011 CARMEN GIBBS MD N 564.00 Constipation 01/15/2011 CARMEN GIBBS MD 780.52 INSOMNIA UNSPECIFIED 01/15/2011 OSMAN ALVAREZ APRN 564.00 Constipation 01/15/2011 OSMAN ALVAREZ APRN 780.52 INSOMNIA UNSPECIFIED 01/15/2011 ROLON DO EMIL K 564.00 Constipation 01/15/2011 ROLON DO EMIL K 780.52 INSOMNIA UNSPECIFIED 01/15/2011 ROLON DO EMIL K 564.00 Constipation 01/15/2011 ROLON DO, EMIL K 780.52 INSOMNIA UNSPECIFIED 01/15/2011 ROLON DO, EMIL K 564.00 Constipation 01/15/2011 ROLON DO, EMIL K 780.52 INSOMNIA UNSPECIFIED 01/15/2011 OSMAN ALVAREZ APRN T 564.00 Constipation 01/15/2011 OSMAN ALVAREZ APRN 780.52 INSOMNIA UNSPECIFIED 01/15/2011 ROLON DO, EMIL K 564.00 Constipation 01/15/2011 ROLON DO, EMIL K 780.52 INSOMNIA UNSPECIFIED 01/15/2011 ROLON DO, EMIL K 564.00 Constipation 01/15/2011 ROLON DO, EMIL K 780.52 INSOMNIA UNSPECIFIED 01/15/2011 CRISTINO LOBATO APRNIA R 564.00 Constipation 01/15/2011 CRISTINO LOBATO APRNIA R 780.52 INSOMNIA UNSPECIFIED 01/15/2011 MADBenji TYPO MACHINE OPERATORLETICIA ChristieA L 564.00 Constipation 01/15/2011 JOSE FRANCISCO TYPO MACHINE OPERATOR, ANSON L 780.52 INSOMNIA UNSPECIFIED 01/15/2011 CRISTINO LOBATO APRNIA R 564.00 Constipation 01/15/2011 CRISTINO LOBATO APRNIA R 780.52 INSOMNIA UNSPECIFIED 01/15/2011 CARMEN GIBBS MD N 564.00 Constipation 01/15/2011 CARMEN GIBBS MD 780.52 INSOMNIA UNSPECIFIED 01/15/2011 GONZALES GAMING, EMIL K 564.00 Constipation 01/15/2011 ROLON DO, EMIL K 780.52 INSOMNIA UNSPECIFIED 01/15/2011 MALACHI TOBIAS APRNINA R 564.00 Constipation 01/15/2011 RAQUEL TOBIAS APRN R 780.52 INSOMNIA UNSPECIFIED 01/15/2011 CARMEN GIBBS MD N 564.00 Constipation 01/15/2011 CARMEN GIBBS MD N 780.52 INSOMNIA UNSPECIFIED 01/15/2011 CRISTINO LOBATO APRNIA R 564.00 Constipation 01/15/2011 CRISTINO LOBATO APRNIA R 780.52 INSOMNIA UNSPECIFIED 01/15/2011 MALACHI TOBIAS APRNINA R 564.00 Constipation 01/15/2011 MALACHI TOBIAS APRNINA R 780.52 INSOMNIA UNSPECIFIED 01/15/2011 CARMEN GIBBS MD N 564.00 Constipation 01/15/2011 CARMEN GIBBS MD 780.52 INSOMNIA UNSPECIFIED 01/15/2011 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, ANSON L 564.00 Constipation 01/15/2011 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, ANSON L 780.52 INSOMNIA UNSPECIFIED 01/15/2011 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, ANSON L 564.00 Constipation 01/15/2011 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, ANSON L 780.52 INSOMNIA UNSPECIFIED 01/15/2011 MICHELINE TYPO MACHINE OPERATOR, RAQUEL R 564.00 Constipation 01/15/2011 MICHELINE TYPO MACHINE OPERATOR, RAQUEL R 780.52 INSOMNIA UNSPECIFIED 01/15/2011 WHITE DDS, ELLIOT J 564.00 Constipation 01/15/2011 WHITE DDS, ELLIOT J 780.52 INSOMNIA UNSPECIFIED 01/15/2011 CARMEN GIBBS MD N 564.00 Constipation 01/15/2011 CARMEN GIBBS MD 780.52 INSOMNIA UNSPECIFIED 01/15/2011 SUDHIR ROLON DOA K 564.00 Constipation 01/15/2011 SUDHIR ROLON DOA K 780.52 INSOMNIA UNSPECIFIED 01/15/2011 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, ANSON L 564.00 Constipation 01/15/2011 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, ANSON L 780.52 INSOMNIA UNSPECIFIED 01/15/2011 CARMEN GIBBS MD N 564.00 Constipation 01/15/2011 CARMEN GIBBS MD 780.52 INSOMNIA UNSPECIFIED 01/15/2011 CARMEN GIBBS MD N 564.00 Constipation 01/15/2011 CARMEN GIBBS MD 780.52 INSOMNIA UNSPECIFIED 01/15/2011 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, ANSON L 564.00 Constipation 01/15/2011 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, ANSON L 780.52 INSOMNIA UNSPECIFIED 01/15/2011 ROLON DO EMIL K 564.00 Constipation 01/15/2011 ROLON DO EMIL K 780.52 INSOMNIA UNSPECIFIED 02/02/2011 MUOGHALU DDS, REGINO N 401.1 HYPERTENSION, BENIGN ESSENTIAL 02/02/2011 BONITAU DDSREGINO N V17.49 FAM HX HYPERTENSION 02/02/2011 401.1 HYPERTENSION, BENIGN ESSENTIAL 02/02/2011 V17.49 FAM HX HYPERTENSION 02/02/2011 LOBATO TYPO MACHINE OPERATOR, BRENNA R 401.1 HYPERTENSION, BENIGN ESSENTIAL 02/02/2011 LUIS ALFREDO BAUMANN, BRENNA R V17.49 FAM HX HYPERTENSION 02/02/2011 ROLON DO, EMIL K 401.1 HYPERTENSION, BENIGN ESSENTIAL 02/02/2011 ROLON DO, EMIL K V17.49 FAM HX HYPERTENSION 02/02/2011 ELLY DOUGLAS MD 401.1 HYPERTENSION, BENIGN ESSENTIAL 02/02/2011 ELLY DOUGLAS MD V17.49 FAM HX HYPERTENSION 02/02/2011 CARMEN GIBBS MD N 401.1 HYPERTENSION, BENIGN ESSENTIAL 02/02/2011 CARMEN GIBBS MD V17.49 FAM HX HYPERTENSION 02/02/2011 CARMEN GIBBS MD N 401.1 HYPERTENSION, BENIGN ESSENTIAL 02/02/2011 CARMEN GIBBS MD V17.49 FAM HX HYPERTENSION 02/02/2011 JESSICA DDS, RAQUEL Galdamez 401.1 HYPERTENSION, BENIGN ESSENTIAL 02/02/2011 JESSICA DDS, RAQUEL Galdamez V17.49 FAM HX HYPERTENSION 02/02/2011 ROLON DO, EMIL K 401.1 HYPERTENSION, BENIGN ESSENTIAL 02/02/2011 ROLON DO, EMIL K V17.49 FAM HX HYPERTENSION 02/02/2011 CARMEN GIBBS MD N 401.1 HYPERTENSION, BENIGN ESSENTIAL 02/02/2011 CARMEN GIBBS MD N V17.49 FAM HX HYPERTENSION 02/02/2011 CARMEN GIBBS MD N 401.1 HYPERTENSION, BENIGN ESSENTIAL 02/02/2011 CARMEN GIBBS MD N V17.49 FAM HX HYPERTENSION 02/02/2011 OSMAN ALVAREZ APRN 401.1 HYPERTENSION, BENIGN ESSENTIAL 02/02/2011 OSMAN ALVAREZ APRN V17.49 FAM HX HYPERTENSION 02/02/2011 ROLON DO, EMIL K 401.1 HYPERTENSION, BENIGN ESSENTIAL 02/02/2011 ROLON DO, EMIL K V17.49 FAM HX HYPERTENSION 02/02/2011 ROLON DO, EMIL K 401.1 HYPERTENSION, BENIGN ESSENTIAL 02/02/2011 ROLON DO, EMIL K V17.49 FAM HX HYPERTENSION 02/02/2011 ROLON DO, EMIL K 401.1 HYPERTENSION, BENIGN ESSENTIAL 02/02/2011 ROLON DO, EMIL K V17.49 FAM HX HYPERTENSION 02/02/2011 OSMAN ALVAREZ APRN 401.1 HYPERTENSION, BENIGN ESSENTIAL 02/02/2011 OSMAN ALVAREZ APRN T V17.49 FAM HX HYPERTENSION 02/02/2011 ROLON DO, EMIL K 401.1 HYPERTENSION, BENIGN ESSENTIAL 02/02/2011 ROLON DO, EMIL K V17.49 FAM HX HYPERTENSION 02/02/2011 ROLON DO, EMIL K 401.1 HYPERTENSION, BENIGN ESSENTIAL 02/02/2011 ROLON DO, EMIL K V17.49 FAM HX HYPERTENSION 02/02/2011 LUIS ALFRDEO BAUMANN, BRENNA R 401.1 HYPERTENSION, BENIGN ESSENTIAL 02/02/2011 LUIS ALFREDO BAUMANN BRENNA R V17.49 FAM HX HYPERTENSION 02/02/2011 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, ANSON L 401.1 HYPERTENSION, BENIGN ESSENTIAL 02/02/2011 SHERI YUN, ANSON L V17.49 FAM HX HYPERTENSION 02/02/2011 EMERY LOBATO APRNRICIA R 401.1 HYPERTENSION, BENIGN ESSENTIAL 02/02/2011 CRISTINO LOBATO APRNIA R V17.49 FAM HX HYPERTENSION 02/02/2011 CARMEN GIBBS MD N 401.1 HYPERTENSION, BENIGN ESSENTIAL 02/02/2011 CARMEN GIBBS MD N V17.49 FAM HX HYPERTENSION 02/02/2011 ROLON DO, EMIL K 401.1 HYPERTENSION, BENIGN ESSENTIAL 02/02/2011 ROLON DO, EMIL K V17.49 FAM HX HYPERTENSION 02/02/2011 MICHELINE BAUMANN RAQUEL R 401.1 HYPERTENSION, BENIGN ESSENTIAL 02/02/2011 MICHELINE BAUMANN RAQUEL R V17.49 FAM HX HYPERTENSION 02/02/2011 CARMEN GIBBS MD N 401.1 HYPERTENSION, BENIGN ESSENTIAL 02/02/2011 CARMEN GIBBS MD N V17.49 FAM HX HYPERTENSION 02/02/2011 CRISTINO LOBATO APRNIA R 401.1 HYPERTENSION, BENIGN ESSENTIAL 02/02/2011 BRENNA LOBATO APRN R V17.49 FAM HX HYPERTENSION 02/02/2011 MICHELINE BAUMANN RAQUEL R 401.1 HYPERTENSION, BENIGN ESSENTIAL 02/02/2011 MICHELINE BAUMANN RAQUEL R V17.49 FAM HX HYPERTENSION 02/02/2011 CARMEN GIBBS MD N 401.1 HYPERTENSION, BENIGN ESSENTIAL 02/02/2011 CARMEN GIBBS MD V17.49 FAM HX HYPERTENSION 02/02/2011 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, ANSON L 401.1 HYPERTENSION, BENIGN ESSENTIAL 02/02/2011 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, ANSON L V17.49 FAM HX HYPERTENSION 02/02/2011 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, ANSON L 401.1 HYPERTENSION, BENIGN ESSENTIAL 02/02/2011 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, ANSON L V17.49 FAM HX HYPERTENSION 02/02/2011 MICHELINE TYPO MACHINE OPERATOR, RAQUEL R 401.1 HYPERTENSION, BENIGN ESSENTIAL 02/02/2011 MICHELINE TYPO MACHINE OPERATOR, RAQUEL R V17.49 FAM HX HYPERTENSION 02/02/2011 WHITE DDS, ELLIOT J 401.1 HYPERTENSION, BENIGN ESSENTIAL 02/02/2011 WHITE DDS, ELLIOT J V17.49 FAM HX HYPERTENSION 02/02/2011 CARMEN GIBBS MD N 401.1 HYPERTENSION, BENIGN ESSENTIAL 02/02/2011 CARMEN GIBBS MD N V17.49 FAM HX HYPERTENSION 02/02/2011 ROLON DO, EMIL K 401.1 HYPERTENSION, BENIGN ESSENTIAL 02/02/2011 ROLON DO, EMIL K V17.49 FAM HX HYPERTENSION 02/02/2011 [facility]PER[facility], ANSON L 401.1 HYPERTENSION, BENIGN ESSENTIAL 02/02/2011 [facility] TYPO MACHINE OPERATOR, ANSON L V17.49 FAM HX HYPERTENSION 02/02/2011 CARMEN GIBBS MD N 401.1 HYPERTENSION, BENIGN ESSENTIAL 02/02/2011 CARMEN GIBBS MD N V17.49 FAM HX HYPERTENSION 02/02/2011 CARMEN GIBBS MD N 401.1 HYPERTENSION, BENIGN ESSENTIAL 02/02/2011 CARMEN GIBBS MD N V17.49 FAM HX HYPERTENSION 02/02/2011 [facility] TYPO MACHINE OPERATOR, ANSON L 401.1 HYPERTENSION, BENIGN ESSENTIAL 02/02/2011 [facility] TYPO MACHINE OPERATOR, ANSON L V17.49 FAM HX HYPERTENSION 02/02/2011 ROLON DO, EMIL K 401.1 HYPERTENSION, BENIGN ESSENTIAL 02/02/2011 ROLON DO, EMIL K V17.49 FAM HX HYPERTENSION 03/28/2011 DEB JETERS, REGINO N 386.11 Vertigo- Benign Paroxysmal Positional 03/28/2011 386.11 Vertigo- Benign Paroxysmal Positional 03/28/2011 BRENNA LOBATO APRN R 386.11 Vertigo- Benign Paroxysmal Positional 03/28/2011 ROLON DO, EMIL K 386.11 Vertigo- Benign Paroxysmal Positional 03/28/2011 STELLA PARISH, ELLY 386.11 Vertigo- Benign Paroxysmal Positional 03/28/2011 CARMEN GIBBS MD 386.11 Vertigo- Benign Paroxysmal Positional 03/28/2011 CARMEN GIBBS MD N 386.11 Vertigo- Benign Paroxysmal Positional 03/28/2011 JESSICA DDS, RAQUEL Galdamez 386.11 Vertigo- Benign Paroxysmal Positional 03/28/2011 ROLON DO, EMIL K 386.11 Vertigo- Benign Paroxysmal Positional 03/28/2011 CARMEN GIBBS MD N 386.11 Vertigo- Benign Paroxysmal Positional 03/28/2011 CARMEN GIBBS MD N 386.11 Vertigo- Benign Paroxysmal Positional 03/28/2011 OSMAN ALVAREZ APRN 386.11 Vertigo- Benign Paroxysmal Positional 03/28/2011 ROLON DO, EMIL K 386.11 Vertigo- Benign Paroxysmal Positional 03/28/2011 ROLON DO, EMIL K 386.11 Vertigo- Benign Paroxysmal Positional 03/28/2011 ROLON DO, EMIL K 386.11 Vertigo- Benign Paroxysmal Positional 03/28/2011 OSMAN ALVAREZ APRN 386.11 Vertigo- Benign Paroxysmal Positional 03/28/2011 ROLON DO, EMIL K 386.11 Vertigo- Benign Paroxysmal Positional 03/28/2011 ROLON DO, EMIL K 386.11 Vertigo- Benign Paroxysmal Positional 03/28/2011 EMERY LOBATO APRNRICIA R 386.11 Vertigo- Benign Paroxysmal Positional 03/28/2011 ANSON WADE APRN 386.11 Vertigo- Benign Paroxysmal Positional 03/28/2011 EMERY LOBATO APRNRICIA R 386.11 Vertigo- Benign Paroxysmal Positional 03/28/2011 CARMEN GIBBS MD N 386.11 Vertigo- Benign Paroxysmal Positional 03/28/2011 ROLON SUDHIR GAMINGA K 386.11 Vertigo- Benign Paroxysmal Positional 03/28/2011 MICHELINE BAUMANN RAQUEL R 386.11 Vertigo- Benign Paroxysmal Positional 03/28/2011 CARMEN GIBBS MD N 386.11 Vertigo- Benign Paroxysmal Positional 03/28/2011 EMERY LOBATO APRNRICIA R 386.11 Vertigo- Benign Paroxysmal Positional 03/28/2011 MICHELINE BAUMANN RAQUEL R 386.11 Vertigo- Benign Paroxysmal Positional 03/28/2011 CARMEN IGBBS MD N 386.11 Vertigo- Benign Paroxysmal Positional 03/28/2011 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, ANSON L 386.11 Vertigo- Benign Paroxysmal Positional 03/28/2011 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, ANSON L 386.11 Vertigo- Benign Paroxysmal Positional 03/28/2011 MICHELINE BAUMANN RAQUEL R 386.11 Vertigo- Benign Paroxysmal Positional 03/28/2011 JOSH VILLAVICENCIO, ELLIOT J 386.11 Vertigo- Benign Paroxysmal Positional 03/28/2011 CARMEN GIBBS MD N 386.11 Vertigo- Benign Paroxysmal Positional 03/28/2011 ROLON DO, EMIL K 386.11 Vertigo- Benign Paroxysmal Positional 03/28/2011 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, ANSON L 386.11 Vertigo- Benign Paroxysmal Positional 03/28/2011 CARMEN GIBBS MD N 386.11 Vertigo- Benign Paroxysmal Positional 03/28/2011 CARMEN GIBBS MD N 386.11 Vertigo- Benign Paroxysmal Positional 03/28/2011 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, 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 L 386.11 Vertigo- Benign Paroxysmal Positional 03/28/2011 ROLON DO, EMIL K 386.11 Vertigo- Benign Paroxysmal Positional 04/01/2011 Ot 789.01 ABDOMINAL PAIN, RIGHT UPPER QUADRANT 04/12/2011 DEB JETERS, REGINO N 892.0 Open Wound Of Foot Except Toe(s) Alone Without Complication 04/12/2011 DEB JETERS, REGINO N 917.8 Other And Unspecified Superficial Injury Of Foot And Toes Without Infection 04/12/2011 DEB VILLAVICENCIO, REGINO N V04.81 Flu Dx (3 Yrs And Above, Im) 04/12/2011 892.0 Open Wound Of Foot Except Toe(s) Alone Without Complication 04/12/2011 917.8 Other And Unspecified Superficial Injury Of Foot And Toes Without Infection 04/12/2011 V04.81 Flu Dx (3 Yrs And Above, Im) 04/12/2011 BRENNA LOBATO APRN R 892.0 Open Wound Of Foot Except Toe(s) Alone Without Complication 04/12/2011 BRENNA LOBATO APRN R 917.8 Other And Unspecified Superficial Injury Of Foot And Toes Without Infection 04/12/2011 BRENNA LOBATO APRN R V04.81 Flu Dx (3 Yrs And Above, Im) 04/12/2011 ROLON DO, EMIL K 892.0 Open Wound Of Foot Except Toe(s) Alone Without Complication 04/12/2011 ROLON DO EMIL K 917.8 Other And Unspecified Superficial Injury Of Foot And Toes Without Infection 04/12/2011 ROLON DO, EMIL K V04.81 Flu Dx (3 Yrs And Above, Im) 04/12/2011 ELLY DOUGLAS MD 892.0 Open Wound Of Foot Except Toe(s) Alone Without Complication 04/12/2011 ELLY DOUGLAS MD 917.8 Other And Unspecified Superficial Injury Of Foot And Toes Without Infection 04/12/2011 ELLY DOUGLAS MD V04.81 Flu Dx (3 Yrs And Above, Im) 04/12/2011 CARMEN GIBBS MD 892.0 Open Wound Of Foot Except Toe(s) Alone Without Complication 04/12/2011 CARMEN GIBBS MD 917.8 Other And Unspecified Superficial Injury Of Foot And Toes Without Infection 04/12/2011 CARMEN GIBBS MD V04.81 Flu Dx (3 Yrs And Above, Im) 04/12/2011 CARMEN GIBBS MD 892.0 Open Wound Of Foot Except Toe(s) Alone Without Complication 04/12/2011 CARMEN GIBBS MD 917.8 Other And Unspecified Superficial Injury Of Foot And Toes Without Infection 04/12/2011 CARMEN GIBBS MD V04.81 Flu Dx (3 Yrs And Above, Im) 04/12/2011 RAQUEL LOPEZ DDS 892.0 Open Wound Of Foot Except Toe(s) Alone Without Complication 04/12/2011 RAQUEL LOPEZ DDS 917.8 Other And Unspecified Superficial Injury Of Foot And Toes Without Infection 04/12/2011 RAQUEL LOPEZ DDS V04.81 Flu Dx (3 Yrs And Above, Im) 04/12/2011 SUDHIR ROLON DOA K 892.0 Open Wound Of Foot Except Toe(s) Alone Without Complication 04/12/2011 ROLON DO EMIL K 917.8 Other And Unspecified Superficial Injury Of Foot And Toes Without Infection 04/12/2011 ROLON DO EMIL K V04.81 Flu Dx (3 Yrs And Above, Im) 04/12/2011 CARMEN GIBBS MD 892.0 Open Wound Of Foot Except Toe(s) Alone Without Complication 04/12/2011 CARMEN GIBBS MD N 917.8 Other And Unspecified Superficial Injury Of Foot And Toes Without Infection 04/12/2011 CARMEN GIBBS MD V04.81 Flu Dx (3 Yrs And Above, Im) 04/12/2011 CARMEN GIBBS MD 892.0 Open Wound Of Foot Except Toe(s) Alone Without Complication 04/12/2011 CARMEN GIBBS MD N 917.8 Other And Unspecified Superficial Injury Of Foot And Toes Without Infection 04/12/2011 CARMEN GIBBS MD V04.81 Flu Dx (3 Yrs And Above, Im) 04/12/2011 OSMAN ALVAREZ APRN 892.0 Open Wound Of Foot Except Toe(s) Alone Without Complication 04/12/2011 OSMAN ALVAREZ APRN 917.8 Other And Unspecified Superficial Injury Of Foot And Toes Without Infection 04/12/2011 OSMAN ALVAREZ APRN V04.81 Flu Dx (3 Yrs And Above, Im) 04/12/2011 ROLON DO, EMIL K 892.0 Open Wound Of Foot Except Toe(s) Alone Without Complication 04/12/2011 ROLON DO, EMIL K 917.8 Other And Unspecified Superficial Injury Of Foot And Toes Without Infection 04/12/2011 ROLON DO, EMIL K V04.81 Flu Dx (3 Yrs And Above, Im) 04/12/2011 ROLON DO, EMIL K 892.0 Open Wound Of Foot Except Toe(s) Alone Without Complication 04/12/2011 ROLON DO, EMIL K 917.8 Other And Unspecified Superficial Injury Of Foot And Toes Without Infection 04/12/2011 ROLON DO, EMIL K V04.81 Flu Dx (3 Yrs And Above, Im) 04/12/2011 ROLON DO, EMIL K 892.0 Open Wound Of Foot Except Toe(s) Alone Without Complication 04/12/2011 ROLON DO, EMIL K 917.8 Other And Unspecified Superficial Injury Of Foot And Toes Without Infection 04/12/2011 ROLON DO, EMIL K V04.81 Flu Dx (3 Yrs And Above, Im) 04/12/2011 OSMAN ALVAREZ APRN T 892.0 Open Wound Of Foot Except Toe(s) Alone Without Complication 04/12/2011 KIM YUOSMAN Christie Juan 917.8 Other And Unspecified Superficial Injury Of Foot And Toes Without Infection 04/12/2011 KIM BAUMANN OSMAN Juan V04.81 Flu Dx (3 Yrs And Above, Im) 04/12/2011 ROLON DO, EMIL K 892.0 Open Wound Of Foot Except Toe(s) Alone Without Complication 04/12/2011 ROLON DO, EMIL K 917.8 Other And Unspecified Superficial Injury Of Foot And Toes Without Infection 04/12/2011 ROLON DO, EMIL K V04.81 Flu Dx (3 Yrs And Above, Im) 04/12/2011 ROLON DO, EMIL K 892.0 Open Wound Of Foot Except Toe(s) Alone Without Complication 04/12/2011 ROLON DO, EMIL K 917.8 Other And Unspecified Superficial Injury Of Foot And Toes Without Infection 04/12/2011 ROLON DO, EMIL K V04.81 Flu Dx (3 Yrs And Above, Im) 04/12/2011 LOBATO TYPO MACHINE OPERATOR, BRENNA R 892.0 Open Wound Of Foot Except Toe(s) Alone Without Complication 04/12/2011 LOBATO TYPO MACHINE OPERATOR, BRENNA R 917.8 Other And Unspecified Superficial Injury Of Foot And Toes Without Infection 04/12/2011 LOBATO TYPO MACHINE OPERATOR, BRENNA R V04.81 Flu Dx (3 Yrs And Above, Im) 04/12/2011 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, ANSON L 892.0 Open Wound Of Foot Except Toe(s) Alone Without Complication 04/12/2011 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, ANSON L 917.8 Other And Unspecified Superficial Injury Of Foot And Toes Without Infection 04/12/2011 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, ANSON L V04.81 Flu Dx (3 Yrs And Above, Im) 04/12/2011 LOBATO TYPO MACHINE OPERATOR, BRENNA R 892.0 Open Wound Of Foot Except Toe(s) Alone Without Complication 04/12/2011 LOBATO TYPO MACHINE OPERATOR, BRENNA R 917.8 Other And Unspecified Superficial Injury Of Foot And Toes Without Infection 04/12/2011 LUIS ALFREDO TYPO MACHINE OPERATOR, BRENNA R V04.81 Flu Dx (3 Yrs And Above, Im) 04/12/2011 CARMEN GIBBS MD N 892.0 Open Wound Of Foot Except Toe(s) Alone Without Complication 04/12/2011 CARMEN GIBBS MD 917.8 Other And Unspecified Superficial Injury Of Foot And Toes Without Infection 04/12/2011 CARMEN GIBBS MD V04.81 Flu Dx (3 Yrs And Above, Im) 04/12/2011 SUDHIR ROLON DOA K 892.0 Open Wound Of Foot Except Toe(s) Alone Without Complication 04/12/2011 ROLON DO, EMIL K 917.8 Other And Unspecified Superficial Injury Of Foot And Toes Without Infection 04/12/2011 ROLON DO, EMIL K V04.81 Flu Dx (3 Yrs And Above, Im) 04/12/2011 MALACHI TOBIAS APRNINA R 892.0 Open Wound Of Foot Except Toe(s) Alone Without Complication 04/12/2011 RAQUEL TOBIAS APRN R 917.8 Other And Unspecified Superficial Injury Of Foot And Toes Without Infection 04/12/2011 MALACHI TOBIAS APRNINA R V04.81 Flu Dx (3 Yrs And Above, Im) 04/12/2011 CARMEN GIBBS MD N 892.0 Open Wound Of Foot Except Toe(s) Alone Without Complication 04/12/2011 CARMEN GIBBS MD N 917.8 Other And Unspecified Superficial Injury Of Foot And Toes Without Infection 04/12/2011 CARMEN GIBBS MD V04.81 Flu Dx (3 Yrs And Above, Im) 04/12/2011 BRENNA LOBATO APRN R 892.0 Open Wound Of Foot Except Toe(s) Alone Without Complication 04/12/2011 CRISTINO LOBATO APRNIA R 917.8 Other And Unspecified Superficial Injury Of Foot And Toes Without Infection 04/12/2011 BRENNA LOBATO APRN R V04.81 Flu Dx (3 Yrs And Above, Im) 04/12/2011 MALACHI TOBIAS APRNINA R 892.0 Open Wound Of Foot Except Toe(s) Alone Without Complication 04/12/2011 MALACHI TOBIAS APRNINA R 917.8 Other And Unspecified Superficial Injury Of Foot And Toes Without Infection 04/12/2011 MICHELINE TYPO MACHINE OPERATOR, RAQUEL R V04.81 Flu Dx (3 Yrs And Above, Im) 04/12/2011 CARMEN GIBBS MD N 892.0 Open Wound Of Foot Except Toe(s) Alone Without Complication 04/12/2011 CARMEN GIBBS MD N 917.8 Other And Unspecified Superficial Injury Of Foot And Toes Without Infection 04/12/2011 CARMEN GIBBS MD V04.81 Flu Dx (3 Yrs And Above, Im) 04/12/2011 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, ANSON L 892.0 Open Wound Of Foot Except Toe(s) Alone Without Complication 04/12/2011 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, ANSON L 917.8 Other And Unspecified Superficial Injury Of Foot And Toes Without Infection 04/12/2011 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, ASNON L V04.81 Flu Dx (3 Yrs And Above, Im) 04/12/2011 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, ANSON L 892.0 Open Wound Of Foot Except Toe(s) Alone Without Complication 04/12/2011 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, ANSON L 917.8 Other And Unspecified Superficial Injury Of Foot And Toes Without Infection 04/12/2011 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, ANSON L V04.81 Flu Dx (3 Yrs And Above, Im) 04/12/2011 MICHELINE TYPO MACHINE OPERATOR, RAQUEL R 892.0 Open Wound Of Foot Except Toe(s) Alone Without Complication 04/12/2011 MICHELINE TYPO MACHINE OPERATOR, RAQUEL R 917.8 Other And Unspecified Superficial Injury Of Foot And Toes Without Infection 04/12/2011 MICHELINE YUN, RAQUEL R V04.81 Flu Dx (3 Yrs And Above, Im) 04/12/2011 WHITE DDS, ELLIOT J 892.0 Open Wound Of Foot Except Toe(s) Alone Without Complication 04/12/2011 JOSH DDS, ELLIOT J 917.8 Other And Unspecified Superficial Injury Of Foot And Toes Without Infection 04/12/2011 WHITE DDS, ELLIOT J V04.81 Flu Dx (3 Yrs And Above, Im) 04/12/2011 CARMEN GIBBS MD N 892.0 Open Wound Of Foot Except Toe(s) Alone Without Complication 04/12/2011 CARMEN GIBBS MD N 917.8 Other And Unspecified Superficial Injury Of Foot And Toes Without Infection 04/12/2011 CARMEN GIBBS MD V04.81 Flu Dx (3 Yrs And Above, Im) 04/12/2011 ROLON DO, EMIL K 892.0 Open Wound Of Foot Except Toe(s) Alone Without Complication 04/12/2011 ROLON DO, EMIL K 917.8 Other And Unspecified Superficial Injury Of Foot And Toes Without Infection 04/12/2011 ROLON DO, EMIL K V04.81 Flu Dx (3 Yrs And Above, Im) 04/12/2011 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, ANSON L 892.0 Open Wound Of Foot Except Toe(s) Alone Without Complication 04/12/2011 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, ANSON L 917.8 Other And Unspecified Superficial Injury Of Foot And Toes Without Infection 04/12/2011 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, ANSON L V04.81 Flu Dx (3 Yrs And Above, Im) 04/12/2011 CARMEN GIBBS MD 892.0 Open Wound Of Foot Except Toe(s) Alone Without Complication 04/12/2011 CARMEN GIBBS MD 917.8 Other And Unspecified Superficial Injury Of Foot And Toes Without Infection 04/12/2011 CARMEN GIBBS MD V04.81 Flu Dx (3 Yrs And Above, Im) 04/12/2011 CARMEN GIBBS MD N 892.0 Open Wound Of Foot Except Toe(s) Alone Without Complication 04/12/2011 CARMEN GIBBS MD 917.8 Other And Unspecified Superficial Injury Of Foot And Toes Without Infection 04/12/2011 CARMEN GIBBS MD V04.81 Flu Dx (3 Yrs And Above, Im) 04/12/2011 MADBenji TYPO MACHINE OPERATOR, ANSON L 892.0 Open Wound Of Foot Except Toe(s) Alone Without Complication 04/12/2011 MADBenji TYPO MACHINE OPERATOR, ANSON L 917.8 Other And Unspecified Superficial Injury Of Foot And Toes Without Infection 04/12/2011 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, ANSON L V04.81 Flu Dx (3 Yrs And Above, Im) 04/12/2011 ROLON DO, EMIL K 892.0 Open Wound Of Foot Except Toe(s) Alone Without Complication 04/12/2011 ROLON DO, EMIL K 917.8 Other And Unspecified Superficial Injury Of Foot And Toes Without Infection 04/12/2011 ROLON DO, EMIL K V04.81 Flu Dx (3 Yrs And Above, Im) 04/13/2011 DEB VILLAVICENCIO, REGINO Christie 477.9 ALLERGIC RHINITIS CAUSE UNSPECIFIED 04/13/2011 477.9 ALLERGIC RHINITIS CAUSE UNSPECIFIED 04/13/2011 BRENNA LOBATO APRN R 477.9 ALLERGIC RHINITIS CAUSE UNSPECIFIED 04/13/2011 ROLON DO, EMIL K 477.9 ALLERGIC RHINITIS CAUSE UNSPECIFIED 04/13/2011 ELLY DOUGLAS MD 477.9 ALLERGIC RHINITIS CAUSE UNSPECIFIED 04/13/2011 CARMEN GIBBS MD 477.9 ALLERGIC RHINITIS CAUSE UNSPECIFIED 04/13/2011 CARMEN GIBBS MD 477.9 ALLERGIC RHINITIS CAUSE UNSPECIFIED 04/13/2011 RAQUEL LOPEZ DDS 477.9 ALLERGIC RHINITIS CAUSE UNSPECIFIED 04/13/2011 ROLON DO, EMIL K 477.9 ALLERGIC RHINITIS CAUSE UNSPECIFIED 04/13/2011 CARMEN GIBBS MD N 477.9 ALLERGIC RHINITIS CAUSE UNSPECIFIED 04/13/2011 CARMEN GBIBS MD 477.9 ALLERGIC RHINITIS CAUSE UNSPECIFIED 04/13/2011 OSMAN ALVAREZ APRN 477.9 ALLERGIC RHINITIS CAUSE UNSPECIFIED 04/13/2011 ROLON DO, EMIL K 477.9 ALLERGIC RHINITIS CAUSE UNSPECIFIED 04/13/2011 ROLON DO, EMIL K 477.9 ALLERGIC RHINITIS CAUSE UNSPECIFIED 04/13/2011 ROLON DO, EMIL K 477.9 ALLERGIC RHINITIS CAUSE UNSPECIFIED 04/13/2011 OSMAN ALVAREZ APRN 477.9 ALLERGIC RHINITIS CAUSE UNSPECIFIED 04/13/2011 ROLON DO, EMIL K 477.9 ALLERGIC RHINITIS CAUSE UNSPECIFIED 04/13/2011 ROLON DO, EMIL K 477.9 ALLERGIC RHINITIS CAUSE UNSPECIFIED 04/13/2011 BRENNA LOBATO APRN 477.9 ALLERGIC RHINITIS CAUSE UNSPECIFIED 04/13/2011 ANSON WADE APRN 477.9 ALLERGIC RHINITIS CAUSE UNSPECIFIED 04/13/2011 BRENNA LOBATO APRN 477.9 ALLERGIC RHINITIS CAUSE UNSPECIFIED 04/13/2011 CARMEN GIBBS MD 477.9 ALLERGIC RHINITIS CAUSE UNSPECIFIED 04/13/2011 ROLON DO, EMIL K 477.9 ALLERGIC RHINITIS CAUSE UNSPECIFIED 04/13/2011 MICHELINE YUN, RAQUEL R 477.9 ALLERGIC RHINITIS CAUSE UNSPECIFIED 04/13/2011 CARMEN GIBBS MD N 477.9 ALLERGIC RHINITIS CAUSE UNSPECIFIED 04/13/2011 EMERY LOBATO APRNRICIA R 477.9 ALLERGIC RHINITIS CAUSE UNSPECIFIED 04/13/2011 MICHELINE BAUMANN, RAQUEL R 477.9 ALLERGIC RHINITIS CAUSE UNSPECIFIED 04/13/2011 CARMEN GIBBS MD 477.9 ALLERGIC RHINITIS CAUSE UNSPECIFIED 04/13/2011 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, ANSON L 477.9 ALLERGIC RHINITIS CAUSE UNSPECIFIED 04/13/2011 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 ANSON L 477.9 ALLERGIC RHINITIS CAUSE UNSPECIFIED 04/13/2011 MALACHI TOBIAS APRNINA R 477.9 ALLERGIC RHINITIS CAUSE UNSPECIFIED 04/13/2011 ELLIOT MORENO DDS 477.9 ALLERGIC RHINITIS CAUSE UNSPECIFIED 04/13/2011 CARMEN GIBBS MD N 477.9 ALLERGIC RHINITIS CAUSE UNSPECIFIED 04/13/2011 SUDHIR ROLON DOA K 477.9 ALLERGIC RHINITIS CAUSE UNSPECIFIED 04/13/2011 MADBenji BAUMANN ANSON L 477.9 ALLERGIC RHINITIS CAUSE UNSPECIFIED 04/13/2011 CARMEN GIBBS MD N 477.9 ALLERGIC RHINITIS CAUSE UNSPECIFIED 04/13/2011 CARMEN GIBBS MD 477.9 ALLERGIC RHINITIS CAUSE UNSPECIFIED 04/13/2011 MADBenji BAUMANN, ANSON L 477.9 ALLERGIC RHINITIS CAUSE UNSPECIFIED 04/13/2011 ROLON DO, EMIL K 477.9 ALLERGIC RHINITIS CAUSE UNSPECIFIED 04/17/2011 MUOGHALU DDS, REGINO N 599.0 Urinary Tract Infection 04/17/2011 MUOGHALU DDS, REGINO N 789.00 Abdominal Pain Unspecified Site 04/17/2011 599.0 Urinary Tract Infection 04/17/2011 789.00 Abdominal Pain Unspecified Site 04/17/2011 LOBATO TYPO MACHINE OPERATOR, BRENNA R 599.0 Urinary Tract Infection 04/17/2011 LOBATO TYPO MACHINE OPERATOR, BRENNA R 789.00 Abdominal Pain Unspecified Site 04/17/2011 ROLON DO, EMIL K 599.0 Urinary Tract Infection 04/17/2011 ROLON DO, EMIL K 789.00 Abdominal Pain Unspecified Site 04/17/2011 ELLY DOUGLAS MD 599.0 Urinary Tract Infection 04/17/2011 ELLY DOUGLAS MD 789.00 Abdominal Pain Unspecified Site 04/17/2011 CARMEN GIBBS MD N 599.0 Urinary Tract Infection 04/17/2011 CARMEN GIBBS MD 789.00 Abdominal Pain Unspecified Site 04/17/2011 CARMEN GIBBS MD N 599.0 Urinary Tract Infection 04/17/2011 CARMEN GIBBS MD N 789.00 Abdominal Pain Unspecified Site 04/17/2011 RAQUEL LOPEZ DDS 599.0 Urinary Tract Infection 04/17/2011 RAQUEL LOPEZ DDS 789.00 Abdominal Pain Unspecified Site 04/17/2011 ROLON DO, EMIL K 599.0 Urinary Tract Infection 04/17/2011 ROLON DO, EMIL K 789.00 Abdominal Pain Unspecified Site 04/17/2011 CARMEN GIBBS MD N 599.0 Urinary Tract Infection 04/17/2011 CARMEN GIBBS MD N 789.00 Abdominal Pain Unspecified Site 04/17/2011 CAREMN GIBBS MD N 599.0 Urinary Tract Infection 04/17/2011 CARMEN GIBBS MD N 789.00 Abdominal Pain Unspecified Site 04/17/2011 OSMAN ALVAREZ APRN 599.0 Urinary Tract Infection 04/17/2011 OSMAN ALVAREZ APRN 789.00 Abdominal Pain Unspecified Site 04/17/2011 ROLON DO, MEIL K 599.0 Urinary Tract Infection 04/17/2011 ROLON DO, EMIL K 789.00 Abdominal Pain Unspecified Site 04/17/2011 ROLON DO, EMIL K 599.0 Urinary Tract Infection 04/17/2011 ROLON DO, EMIL K 789.00 Abdominal Pain Unspecified Site 04/17/2011 ROLON DO, EMIL K 599.0 Urinary Tract Infection 04/17/2011 ROLON DO, EMIL K 789.00 Abdominal Pain Unspecified Site 04/17/2011 OSMAN ALVAREZ APRN 599.0 Urinary Tract Infection 04/17/2011 KIM TYPO MACHINE OPERATOR, OSMAN T 789.00 Abdominal Pain Unspecified Site 04/17/2011 ROLON DO, EMIL K 599.0 Urinary Tract Infection 04/17/2011 ROLON DO, EMIL K 789.00 Abdominal Pain Unspecified Site 04/17/2011 ROLON DO, EMIL K 599.0 Urinary Tract Infection 04/17/2011 ROLON DO, EMIL K 789.00 Abdominal Pain Unspecified Site 04/17/2011 LUIS ALFREDO YUN, BRENNA R 599.0 Urinary Tract Infection 04/17/2011 LUIS ALFREDO YUN BRENNA R 789.00 Abdominal Pain Unspecified Site 04/17/2011 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, ANSON L 599.0 Urinary Tract Infection 04/17/2011 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, ANSON L 789.00 Abdominal Pain Unspecified Site 04/17/2011 LUIS ALFREDO YUN BRENNA R 599.0 Urinary Tract Infection 04/17/2011 EMERY LOBATO APRNRICIA R 789.00 Abdominal Pain Unspecified Site 04/17/2011 CARMEN GIBBS MD N 599.0 Urinary Tract Infection 04/17/2011 CARMEN GIBBS MD N 789.00 Abdominal Pain Unspecified Site 04/17/2011 ROLON DO, EMIL K 599.0 Urinary Tract Infection 04/17/2011 ROLON DO, EMIL K 789.00 Abdominal Pain Unspecified Site 04/17/2011 MICHELINE BAUMANN RAQUEL R 599.0 Urinary Tract Infection 04/17/2011 MICHELINE BAUMANN, RAQUEL R 789.00 Abdominal Pain Unspecified Site 04/17/2011 CARMEN GIBBS MD N 599.0 Urinary Tract Infection 04/17/2011 CARMEN GIBBS MD N 789.00 Abdominal Pain Unspecified Site 04/17/2011 LUIS ALFREDO BAUMANN BRENNA R 599.0 Urinary Tract Infection 04/17/2011 EMERY LOBATO APRNRICIA R 789.00 Abdominal Pain Unspecified Site 04/17/2011 MICHELINE YUN, RAQUEL R 599.0 Urinary Tract Infection 04/17/2011 MICHELINE YUN, RAQUEL R 789.00 Abdominal Pain Unspecified Site 04/17/2011 CARMEN GIBBS MD N 599.0 Urinary Tract Infection 04/17/2011 CARMEN GIBBS MD N 789.00 Abdominal Pain Unspecified Site 04/17/2011 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, ANSON L 599.0 Urinary Tract Infection 04/17/2011 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, ANSON L 789.00 Abdominal Pain Unspecified Site 04/17/2011 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, ANSON L 599.0 Urinary Tract Infection 04/17/2011 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, ANSON L 789.00 Abdominal Pain Unspecified Site 04/17/2011 MICHELINE TYPO MACHINE OPERATOR, RAQUEL R 599.0 Urinary Tract Infection 04/17/2011 MICHELINE TYPO MACHINE OPERATOR, RAQUEL R 789.00 Abdominal Pain Unspecified Site 04/17/2011 JOSH DDS, ELLIOT J 599.0 Urinary Tract Infection 04/17/2011 JOSH JETERS, ELLIOT J 789.00 Abdominal Pain Unspecified Site 04/17/2011 CARMEN GIBBS MD N 599.0 Urinary Tract Infection 04/17/2011 CARMEN GIBBS MD N 789.00 Abdominal Pain Unspecified Site 04/17/2011 ROLON DO, EMIL K 599.0 Urinary Tract Infection 04/17/2011 ROLON DO, EMIL K 789.00 Abdominal Pain Unspecified Site 04/17/2011 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, ANSON L 599.0 Urinary Tract Infection 04/17/2011 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, ANSON L 789.00 Abdominal Pain Unspecified Site 04/17/2011 CARMEN GIBBS MD N 599.0 Urinary Tract Infection 04/17/2011 CARMEN GIBBS MD N 789.00 Abdominal Pain Unspecified Site 04/17/2011 CARMEN GIBBS MD N 599.0 Urinary Tract Infection 04/17/2011 CARMEN GIBBS MD N 789.00 Abdominal Pain Unspecified Site 04/17/2011 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, ANSON L 599.0 Urinary Tract Infection 04/17/2011 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, ANSON L 789.00 Abdominal Pain Unspecified Site 04/17/2011 ROLON DO, EMIL K 599.0 Urinary Tract Infection 04/17/2011 ROLON DO, EMIL K 789.00 Abdominal Pain Unspecified Site 05/01/2011 DEB JETERS, REGINO N 625.9 Pelvic Pain 05/01/2011 625.9 Pelvic Pain 05/01/2011 LOBATO TYPO MACHINE OPERATOR, BRENNA R 625.9 Pelvic Pain 05/01/2011 ROLON DO, EMIL K 625.9 Pelvic Pain 05/01/2011 ELLY DOUGLAS MD 625.9 Pelvic Pain 05/01/2011 CARMEN GIBBS MD 625.9 Pelvic Pain 05/01/2011 CARMEN GIBBS MD 625.9 Pelvic Pain 05/01/2011 JESSICA VILLAVICENCIO, RAQUEL Galdamez 625.9 Pelvic Pain 05/01/2011 ROLON DO, EMIL K 625.9 Pelvic Pain 05/01/2011 CARMEN GIBBS MD 625.9 Pelvic Pain 05/01/2011 CARMEN GIBBS MD 625.9 Pelvic Pain 05/01/2011 OSMAN ALVAREZ APRN T 625.9 Pelvic Pain 05/01/2011 ROLON DO, EMIL K 625.9 Pelvic Pain 05/01/2011 ROLON DO, EMIL K 625.9 Pelvic Pain 05/01/2011 ROLON DO, EMIL K 625.9 Pelvic Pain 05/01/2011 KIM BAUMANN OSMAN T 625.9 Pelvic Pain 05/01/2011 ROLON DO, EMIL K 625.9 Pelvic Pain 05/01/2011 ROLON DO, EMIL K 625.9 Pelvic Pain 05/01/2011 LUIS ALFREDO TYPO MACHINE OPERATOR, BRENNA R 625.9 Pelvic Pain 05/01/2011 JOSE FRANCISCOL TYPO MACHINE OPERATOR, ANSON L 625.9 Pelvic Pain 05/01/2011 LUIS ALFREDO YUN, BRENNA R 625.9 Pelvic Pain 05/01/2011 CARMEN GIBBS MD N 625.9 Pelvic Pain 05/01/2011 ROLON DO, EMIL K 625.9 Pelvic Pain 05/01/2011 MICHELINE TYPO MACHINE OPERATOR, RAQUEL R 625.9 Pelvic Pain 05/01/2011 CARMEN GIBBS MD N 625.9 Pelvic Pain 05/01/2011 LOBATO TYPO MACHINE OPERATOR, BRENNA R 625.9 Pelvic Pain 05/01/2011 MICHELINE YUN, RAQUEL R 625.9 Pelvic Pain 05/01/2011 CARMEN GIBBS MD N 625.9 Pelvic Pain 05/01/2011 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, ANSON L 625.9 Pelvic Pain 05/01/2011 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, ANSON L 625.9 Pelvic Pain 05/01/2011 MICHELINE YUN, RAQUEL R 625.9 Pelvic Pain 05/01/2011 JOSH JETERS, ELLIOT Alston 625.9 Pelvic Pain 05/01/2011 CARMEN GIBBS MD 625.9 Pelvic Pain 05/01/2011 ROLON SUDHIR GAMINGA K 625.9 Pelvic Pain 05/01/2011 ANSON WADE APRN L 625.9 Pelvic Pain 05/01/2011 CARMEN GIBBS MD 625.9 Pelvic Pain 05/01/2011 CARMEN GIBBS MD 625.9 Pelvic Pain 05/01/2011 ANSON WADE APRN L 625.9 Pelvic Pain 05/01/2011 ROLON DO EMIL K 625.9 Pelvic Pain 05/21/2011 DEB JETERS, REGINO Christie 381.81 Dysfunction Of Eustachian Tube 05/21/2011 381.81 Dysfunction Of Eustachian Tube 05/21/2011 BRENNA LOBATO APRN 381.81 Dysfunction Of Eustachian Tube 05/21/2011 ROLON SUDHIR GAMINGA K 381.81 Dysfunction Of Eustachian Tube 05/21/2011 ELLY DOUGLAS MD 381.81 Dysfunction Of Eustachian Tube 05/21/2011 CARMEN GIBBS MD 381.81 Dysfunction Of Eustachian Tube 05/21/2011 CARMEN GIBBS MD 381.81 Dysfunction Of Eustachian Tube 05/21/2011 JESSICA JETERS, RAQUEL Galdamez 381.81 Dysfunction Of Eustachian Tube 05/21/2011 ROLON SUDHIR GAMINGA K 381.81 Dysfunction Of Eustachian Tube 05/21/2011 CARMEN GIBBS MD 381.81 Dysfunction Of Eustachian Tube 05/21/2011 CARMEN GIBBS MD 381.81 Dysfunction Of Eustachian Tube 05/21/2011 OSMAN ALVAREZ APRN 381.81 Dysfunction Of Eustachian Tube 05/21/2011 ROLON DO EMIL K 381.81 Dysfunction Of Eustachian Tube 05/21/2011 ROLON DO EMIL K 381.81 Dysfunction Of Eustachian Tube 05/21/2011 ROLON DO EMIL K 381.81 Dysfunction Of Eustachian Tube 05/21/2011 OSMAN ALVAREZ APRN 381.81 Dysfunction Of Eustachian Tube 05/21/2011 ROLON DO EMIL K 381.81 Dysfunction Of Eustachian Tube 05/21/2011 SUDHIR ROLON DOA K 381.81 Dysfunction Of Eustachian Tube 05/21/2011 CRISTINO LOBATO APRNIA R 381.81 Dysfunction Of Eustachian Tube 05/21/2011 LETICIA WADE APRNA L 381.81 Dysfunction Of Eustachian Tube 05/21/2011 BRENNA LOBATO APRN R 381.81 Dysfunction Of Eustachian Tube 05/21/2011 CARMEN GIBBS MD 381.81 Dysfunction Of Eustachian Tube 05/21/2011 EMIL ROLON DO K 381.81 Dysfunction Of Eustachian Tube 05/21/2011 MICHELINE BAUMANN RAQUEL R 381.81 Dysfunction Of Eustachian Tube 05/21/2011 CARMEN GIBBS MD 381.81 Dysfunction Of Eustachian Tube 05/21/2011 BRENNA LOBATO APRN R 381.81 Dysfunction Of Eustachian Tube 05/21/2011 MALACHI TOBIAS APRNINA R 381.81 Dysfunction Of Eustachian Tube 05/21/2011 CARMEN GIBBS MD 381.81 Dysfunction Of Eustachian Tube 05/21/2011 LETICIA WADE APRNA L 381.81 Dysfunction Of Eustachian Tube 05/21/2011 LETICIA WADE APRNA L 381.81 Dysfunction Of Eustachian Tube 05/21/2011 MALACHI TOBIAS APRNINA R 381.81 Dysfunction Of Eustachian Tube 05/21/2011 JOSH VILLAVICENCIO, ELLIOT [place] 381.81 Dysfunction Of Eustachian Tube 05/21/2011 CARMEN GIBBS MD 381.81 Dysfunction Of Eustachian Tube 05/21/2011 EMIL ROLON DO K 381.81 Dysfunction Of Eustachian Tube 05/21/2011 LETICIA WADE APRNA L 381.81 Dysfunction Of Eustachian Tube 05/21/2011 CARMEN GIBBS MD 381.81 Dysfunction Of Eustachian Tube 05/21/2011 CARMEN GIBBS MD 381.81 Dysfunction Of Eustachian Tube 05/21/2011 ANSON WADE APRN L 381.81 Dysfunction Of Eustachian Tube 05/21/2011 ROLON DO, EMIL K 381.81 Dysfunction Of Eustachian Tube 05/30/2011 DEB VILLAVICENCIO, REGINO N 786.50 Chest Pain Or Discomfort 05/30/2011 786.50 Chest Pain Or Discomfort 05/30/2011 EMERY LOBATO APRNRICIA R 786.50 Chest Pain Or Discomfort 05/30/2011 ROLON DO, EMIL K 786.50 Chest Pain Or Discomfort 05/30/2011 ELLY DOUGLAS MD 786.50 Chest Pain Or Discomfort 05/30/2011 CARMEN GIBBS MD 786.50 Chest Pain Or Discomfort 05/30/2011 CARMEN GIBBS MD 786.50 Chest Pain Or Discomfort 05/30/2011 RAQUEL LOPEZ DDS 786.50 Chest Pain Or Discomfort 05/30/2011 ROLON DO, EMIL K 786.50 Chest Pain Or Discomfort 05/30/2011 CARMEN GIBBS MD 786.50 Chest Pain Or Discomfort 05/30/2011 CARMEN GIBBS MD 786.50 Chest Pain Or Discomfort 05/30/2011 OSMAN ALVAREZ APRN 786.50 Chest Pain Or Discomfort 05/30/2011 ROLON DO, EMIL K 786.50 Chest Pain Or Discomfort 05/30/2011 ROLON DO, EMIL K 786.50 Chest Pain Or Discomfort 05/30/2011 ROLON DO, EMIL K 786.50 Chest Pain Or Discomfort 05/30/2011 OSMAN ALVAREZ APRN 786.50 Chest Pain Or Discomfort 05/30/2011 ROLON DO, EMIL K 786.50 Chest Pain Or Discomfort 05/30/2011 ROLON DO, EMIL K 786.50 Chest Pain Or Discomfort 05/30/2011 EMERY LOBATO APRNRICIA R 786.50 Chest Pain Or Discomfort 05/30/2011 ANSON WADE APRN L 786.50 Chest Pain Or Discomfort 05/30/2011 CRISTINO LOBATO APRNIA R 786.50 Chest Pain Or Discomfort 05/30/2011 CARMEN GIBBS MD 786.50 Chest Pain Or Discomfort 05/30/2011 ROLON DO, EMIL K 786.50 Chest Pain Or Discomfort 05/30/2011 MICHELINE BAUMANN RAQUEL R 786.50 Chest Pain Or Discomfort 05/30/2011 CARMEN GIBBS MD 786.50 Chest Pain Or Discomfort 05/30/2011 BRENNA LOBATO APRN R 786.50 Chest Pain Or Discomfort 05/30/2011 MICHELINE BAUMANN, RAQUEL R 786.50 Chest Pain Or Discomfort 05/30/2011 CARMEN GIBBS MD 786.50 Chest Pain Or Discomfort 05/30/2011 MADBenji BAUMANN, ANSON L 786.50 Chest Pain Or Discomfort 05/30/2011 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, ANSON L 786.50 Chest Pain Or Discomfort 05/30/2011 MALACHI TOBIAS APRNINA R 786.50 Chest Pain Or Discomfort 05/30/2011 ELLIOT MORENO DDS 786.50 Chest Pain Or Discomfort 05/30/2011 CARMEN GIBBS MD 786.50 Chest Pain Or Discomfort 05/30/2011 EMIL ROLON DO 786.50 Chest Pain Or Discomfort 05/30/2011 SHERI BAUMANN, ANSON L 786.50 Chest Pain Or Discomfort 05/30/2011 CARMEN GIBBS MD 786.50 Chest Pain Or Discomfort 05/30/2011 CARMEN GIBBS MD 786.50 Chest Pain Or Discomfort 05/30/2011 SHERI BAUMANN, ANSON L 786.50 Chest Pain Or Discomfort 05/30/2011 EMIL ROLON DO K 786.50 Chest Pain Or Discomfort 06/19/2011 Ot 451.19 DEEP PHLEBITIS-LEG NEC 06/19/2011 Ot 729.5 PAIN IN LIMB 06/20/2011 REGINO BOYD DDS 729.5 Hand Pain 06/20/2011 729.5 Hand Pain 06/20/2011 BRENNA LOBATO APRN 729.5 Hand Pain 06/20/2011 EMIL ROLON DO 729.5 Hand Pain 06/20/2011 ELLY DOUGALS MD 729.5 Hand Pain 06/20/2011 CARMEN GIBBS MD 729.5 Hand Pain 06/20/2011 CARMEN GIBBS MD 729.5 Hand Pain 06/20/2011 RAQUEL LOPEZ DDS 729.5 Hand Pain 06/20/2011 EMIL ROLON DO 729.5 Hand Pain 06/20/2011 CARMEN GIBBS MD 729.5 Hand Pain 06/20/2011 CARMEN GIBBS MD 729.5 Hand Pain 06/20/2011 OSMAN ALVAREZ APRN 729.5 Hand Pain 06/20/2011 ROLON DO, EMIL K 729.5 Hand Pain 06/20/2011 ROLON DO, EMIL K 729.5 Hand Pain 06/20/2011 ROLON DO, EMIL K 729.5 Hand Pain 06/20/2011 OMSAN ALVAREZ APRN 729.5 Hand Pain 06/20/2011 ROLON DO, EMIL K 729.5 Hand Pain 06/20/2011 ROLON DO, EMIL K 729.5 Hand Pain 06/20/2011 CRISTINO LOBATO APRNIA R 729.5 Hand Pain 06/20/2011 SHERI BAUMANN, ANSON L 729.5 Hand Pain 06/20/2011 EMERY LOBATO APRNRICIA R 729.5 Hand Pain 06/20/2011 CARMEN GIBBS MD 729.5 Hand Pain 06/20/2011 ROLON DOEMIL K 729.5 Hand Pain 06/20/2011 MALACHI TOBIAS APRNINA R 729.5 Hand Pain 06/20/2011 CARMEN GIBBS MD N 729.5 Hand Pain 06/20/2011 BRENNA LOBATO APRN R 729.5 Hand Pain 06/20/2011 MALACHI TOBIAS APRNINA R 729.5 Hand Pain 06/20/2011 CARMEN GIBBS MD 729.5 Hand Pain 06/20/2011 ANSON WADE APRN L 729.5 Hand Pain 06/20/2011 ANSON WADE APRN L 729.5 Hand Pain 06/20/2011 MALACHI TOBIAS APRNINA R 729.5 Hand Pain 06/20/2011 ELLIOT MORENO DDS 729.5 Hand Pain 06/20/2011 CARMEN GIBBS MD 729.5 Hand Pain 06/20/2011 ROLON DOSUDHIRA K 729.5 Hand Pain 06/20/2011 LETICIA WADE APRNA L 729.5 Hand Pain 06/20/2011 CARMEN GIBBS MD 729.5 Hand Pain 06/20/2011 CARMEN GIBBS MD 729.5 Hand Pain 06/20/2011 ANSON WADE APRN L 729.5 Hand Pain 06/20/2011 ROLON DO, EMIL K 729.5 Hand Pain 07/31/2011 DEB VILLAVICENCIO, REGINO Christie 333.94 RESTLESS LEGS SYNDROME (RLS) 07/31/2011 333.94 RESTLESS LEGS SYNDROME (RLS) 07/31/2011 BRENNA LOBATO APRN R 333.94 RESTLESS LEGS SYNDROME (RLS) 07/31/2011 ROLON DO, EMIL K 333.94 RESTLESS LEGS SYNDROME (RLS) 07/31/2011 ELLY DOUGLAS MD 333.94 RESTLESS LEGS SYNDROME (RLS) 07/31/2011 CARMEN GIBBS MD 333.94 RESTLESS LEGS SYNDROME (RLS) 07/31/2011 CARMEN GIBBS MD 333.94 RESTLESS LEGS SYNDROME (RLS) 07/31/2011 RAQUEL LOPEZ DDS 333.94 RESTLESS LEGS SYNDROME (RLS) 07/31/2011 ROLON DO, EMIL K 333.94 RESTLESS LEGS SYNDROME (RLS) 07/31/2011 CARMEN GIBBS MD 333.94 RESTLESS LEGS SYNDROME (RLS) 07/31/2011 CARMEN GIBBS MD 333.94 RESTLESS LEGS SYNDROME (RLS) 07/31/2011 OSMAN ALVAREZ APRN 333.94 RESTLESS LEGS SYNDROME (RLS) 07/31/2011 ROLON DO, EMIL K 333.94 RESTLESS LEGS SYNDROME (RLS) 07/31/2011 ROLON DO, EMIL K 333.94 RESTLESS LEGS SYNDROME (RLS) 07/31/2011 ROLON DO, EMIL K 333.94 RESTLESS LEGS SYNDROME (RLS) 07/31/2011 OSMAN ALVAREZ APRN 333.94 RESTLESS LEGS SYNDROME (RLS) 07/31/2011 ROLON DO, EMIL K 333.94 RESTLESS LEGS SYNDROME (RLS) 07/31/2011 ROLON DO, EMIL K 333.94 RESTLESS LEGS SYNDROME (RLS) 07/31/2011 BRENNA LOBATO APRN 333.94 RESTLESS LEGS SYNDROME (RLS) 07/31/2011 ANSON WADE APRN 333.94 RESTLESS LEGS SYNDROME (RLS) 07/31/2011 BRENNA LOBATO APRN 333.94 RESTLESS LEGS SYNDROME (RLS) 07/31/2011 CARMEN GIBBS MD 333.94 RESTLESS LEGS SYNDROME (RLS) 07/31/2011 ROLON DO EMIL K 333.94 RESTLESS LEGS SYNDROME (RLS) 07/31/2011 MICHELINE BAUMANN, RAQUEL R 333.94 RESTLESS LEGS SYNDROME (RLS) 07/31/2011 CARMEN GIBBS MD 333.94 RESTLESS LEGS SYNDROME (RLS) 07/31/2011 BRENNA LOBATO APRN 333.94 RESTLESS LEGS SYNDROME (RLS) 07/31/2011 RAQUEL TOBIAS APRN R 333.94 RESTLESS LEGS SYNDROME (RLS) 07/31/2011 CARMEN GIBBS MD 333.94 RESTLESS LEGS SYNDROME (RLS) 07/31/2011 LETICIA WADE APRNA L 333.94 RESTLESS LEGS SYNDROME (RLS) 07/31/2011 LETICIA WADE APRNA L 333.94 RESTLESS LEGS SYNDROME (RLS) 07/31/2011 RAQUEL TOBIAS APRN R 333.94 RESTLESS LEGS SYNDROME (RLS) 07/31/2011 JOSH VILLAVICENCIO, ELLIOT Alston 333.94 RESTLESS LEGS SYNDROME (RLS) 07/31/2011 CARMEN GIBBS MD 333.94 RESTLESS LEGS SYNDROME (RLS) 07/31/2011 EMIL ROLON DO 333.94 RESTLESS LEGS SYNDROME (RLS) 07/31/2011 LETICIA WADE APRNA L 333.94 RESTLESS LEGS SYNDROME (RLS) 07/31/2011 CARMEN GIBBS MD 333.94 RESTLESS LEGS SYNDROME (RLS) 07/31/2011 CARMEN GIBBS MD 333.94 RESTLESS LEGS SYNDROME (RLS) 07/31/2011 ANSON WADE APRN 333.94 RESTLESS LEGS SYNDROME (RLS) 07/31/2011 EMIL ROLON DO 333.94 RESTLESS LEGS SYNDROME (RLS) 09/11/2011 DEB VILLAVICENCIO, REGINO Christie 789.06 ABDOMINAL PAIN EPIGASTRIC 09/11/2011 789.06 ABDOMINAL PAIN EPIGASTRIC 09/11/2011 BRENNA LOBATO APRN 789.06 ABDOMINAL PAIN EPIGASTRIC 09/11/2011 EMIL ROLON DO 789.06 ABDOMINAL PAIN EPIGASTRIC 09/11/2011 ELLY DOUGLAS MD 789.06 ABDOMINAL PAIN EPIGASTRIC 09/11/2011 CARMEN GIBBS MD 789.06 ABDOMINAL PAIN EPIGASTRIC 09/11/2011 CARMEN GIBBS MD 789.06 ABDOMINAL PAIN EPIGASTRIC 09/11/2011 JESSICA DDS, RAQUEL Galdamez 789.06 ABDOMINAL PAIN EPIGASTRIC 09/11/2011 ROLON DO, EMIL K 789.06 ABDOMINAL PAIN EPIGASTRIC 09/11/2011 CARMEN GIBBS MD 789.06 ABDOMINAL PAIN EPIGASTRIC 09/11/2011 CARMEN GIBBS MD 789.06 ABDOMINAL PAIN EPIGASTRIC 09/11/2011 OSMAN ALVAREZ APRN 789.06 ABDOMINAL PAIN EPIGASTRIC 09/11/2011 ROLON DO, EMIL K 789.06 ABDOMINAL PAIN EPIGASTRIC 09/11/2011 ROLON DO, EMIL K 789.06 ABDOMINAL PAIN EPIGASTRIC 09/11/2011 ROLON DO, EMIL K 789.06 ABDOMINAL PAIN EPIGASTRIC 09/11/2011 OSMAN ALVAREZ APRN 789.06 ABDOMINAL PAIN EPIGASTRIC 09/11/2011 ROLON DO, EMIL K 789.06 ABDOMINAL PAIN EPIGASTRIC 09/11/2011 ROLON DO, EMIL K 789.06 ABDOMINAL PAIN EPIGASTRIC 09/11/2011 BRENNA LOBATO APRN R 789.06 ABDOMINAL PAIN EPIGASTRIC 09/11/2011 ANSON WADE APRN L 789.06 ABDOMINAL PAIN EPIGASTRIC 09/11/2011 BRENNA LOBATO APRN R 789.06 ABDOMINAL PAIN EPIGASTRIC 09/11/2011 CARMEN GIBBS MD 789.06 ABDOMINAL PAIN EPIGASTRIC 09/11/2011 ROLON DO, EMIL K 789.06 ABDOMINAL PAIN EPIGASTRIC 09/11/2011 RAQUEL TOBIAS APRN R 789.06 ABDOMINAL PAIN EPIGASTRIC 09/11/2011 CARMEN GIBBS MD 789.06 ABDOMINAL PAIN EPIGASTRIC 09/11/2011 BRENNA LOBATO APRN R 789.06 ABDOMINAL PAIN EPIGASTRIC 09/11/2011 RAQUEL TOBIAS APRN R 789.06 ABDOMINAL PAIN EPIGASTRIC 09/11/2011 CARMEN GIBBS MD 789.06 ABDOMINAL PAIN EPIGASTRIC 09/11/2011 ANSON WADE APRN L 789.06 ABDOMINAL PAIN EPIGASTRIC 09/11/2011 ANSON WADE APRN L 789.06 ABDOMINAL PAIN EPIGASTRIC 09/11/2011 RAQUEL TOBIAS APRN R 789.06 ABDOMINAL PAIN EPIGASTRIC 09/11/2011 JOSH VILLAVICENCIO, ELLIOT Alston 789.06 ABDOMINAL PAIN EPIGASTRIC 09/11/2011 CARMEN GIBBS MD 789.06 ABDOMINAL PAIN EPIGASTRIC 09/11/2011 EMIL ROLON DO 789.06 ABDOMINAL PAIN EPIGASTRIC 09/11/2011 ANSON WADE APRN 789.06 ABDOMINAL PAIN EPIGASTRIC 09/11/2011 CARMEN GIBBS MD 789.06 ABDOMINAL PAIN EPIGASTRIC 09/11/2011 CARMEN GIBBS MD 789.06 ABDOMINAL PAIN EPIGASTRIC 09/11/2011 ANSON WADE APRN 789.06 ABDOMINAL PAIN EPIGASTRIC 09/11/2011 EMIL ROLON DO 789.06 ABDOMINAL PAIN EPIGASTRIC 09/28/2011 MUOGHALArturo JETERSREGINO 789.00 abdominal pain 09/28/2011 MUOGHALU STEFFANYS, REGINO Christie V68.1 Issue Of Repeat Prescriptions 09/28/2011 789.00 abdominal pain 09/28/2011 V68.1 Issue Of Repeat Prescriptions 09/28/2011 BRENNA LOBATO APRN 789.00 abdominal pain 09/28/2011 BRENNA LOBATO APRN V68.1 Issue Of Repeat Prescriptions 09/28/2011 EMIL ROLON DO 789.00 abdominal pain 09/28/2011 EMIL ROLON DO V68.1 Issue Of Repeat Prescriptions 09/28/2011 ELLY DOUGLAS MD 789.00 abdominal pain 09/28/2011 ELLY DOUGLAS MD V68.1 Issue Of Repeat Prescriptions 09/28/2011 CARMEN GIBBS MD 789.00 abdominal pain 09/28/2011 CARMEN GIBBS MD V68.1 Issue Of Repeat Prescriptions 09/28/2011 CARMEN GIBBS MD 789.00 abdominal pain 09/28/2011 CARMEN GIBBS MD V68.1 Issue Of Repeat Prescriptions 09/28/2011 RAQUEL LOPEZ DDS 789.00 abdominal pain 09/28/2011 RAQUEL LOPEZ DDS V68.1 Issue Of Repeat Prescriptions 09/28/2011 EMIL ROLON DO 789.00 abdominal pain 09/28/2011 EMIL ROLON DO V68.1 Issue Of Repeat Prescriptions 09/28/2011 CARMEN GIBBS MD 789.00 abdominal pain 09/28/2011 CARMEN GIBBS MD V68.1 Issue Of Repeat Prescriptions 09/28/2011 CARMEN GIBBS MD 789.00 abdominal pain 09/28/2011 CARMEN GIBBS MD V68.1 Issue Of Repeat Prescriptions 09/28/2011 OSMAN ALVAREZ APRN 789.00 abdominal pain 09/28/2011 OSMAN ALVAREZ APRN V68.1 Issue Of Repeat Prescriptions 09/28/2011 ROLON DO, EMIL K 789.00 abdominal pain 09/28/2011 ROLON DO, EMIL K V68.1 Issue Of Repeat Prescriptions 09/28/2011 ROLON DO, EMIL K 789.00 abdominal pain 09/28/2011 ROLON DO, EMIL K V68.1 Issue Of Repeat Prescriptions 09/28/2011 ROLON DO, EMIL K 789.00 abdominal pain 09/28/2011 ROLON DO, EMIL K V68.1 Issue Of Repeat Prescriptions 09/28/2011 OSMAN ALVAREZ APRN 789.00 abdominal pain 09/28/2011 OSMAN ALVAREZ APRN V68.1 Issue Of Repeat Prescriptions 09/28/2011 ROLON DO, EMIL K 789.00 abdominal pain 09/28/2011 ROLON DO, EMIL K V68.1 Issue Of Repeat Prescriptions 09/28/2011 ROLON DO, EMIL K 789.00 abdominal pain 09/28/2011 ROLON DO, EMIL K V68.1 Issue Of Repeat Prescriptions 09/28/2011 BRENNA LOBATO APRN R 789.00 abdominal pain 09/28/2011 BRENNA LOBATO APRN R V68.1 Issue Of Repeat Prescriptions 09/28/2011 ANSON WADE APRN L 789.00 abdominal pain 09/28/2011 ANSON WADE APRN L V68.1 Issue Of Repeat Prescriptions 09/28/2011 BRENNA LOBATO APRN R 789.00 abdominal pain 09/28/2011 BRENNA LOBATO APRN R V68.1 Issue Of Repeat Prescriptions 09/28/2011 CARMEN GIBBS MD 789.00 abdominal pain 09/28/2011 CARMEN GIBBS MD V68.1 Issue Of Repeat Prescriptions 09/28/2011 ROLON DO, EMIL K 789.00 abdominal pain 09/28/2011 ROLON DO, EMIL K V68.1 Issue Of Repeat Prescriptions 09/28/2011 MALACHI TOBIAS APRNINA R 789.00 abdominal pain 09/28/2011 MICHELINE BAUMANN RAQUEL R V68.1 Issue Of Repeat Prescriptions 09/28/2011 CARMEN GIBBS MD 789.00 abdominal pain 09/28/2011 CARMEN GIBBS MD V68.1 Issue Of Repeat Prescriptions 09/28/2011 CRISTINO LOBATO APRNIA R 789.00 abdominal pain 09/28/2011 CRISTINO LOBATO APRNIA R V68.1 Issue Of Repeat Prescriptions 09/28/2011 RAQUEL TOBIAS APRN R 789.00 abdominal pain 09/28/2011 MALACHI TOBIAS APRNINA R V68.1 Issue Of Repeat Prescriptions 09/28/2011 CARMEN GIBBS MD 789.00 abdominal pain 09/28/2011 CARMEN GIBBS MD V68.1 Issue Of Repeat Prescriptions 09/28/2011 LETICIA WADE APRNA L 789.00 abdominal pain 09/28/2011 LETICIA WADE APRNA L V68.1 Issue Of Repeat Prescriptions 09/28/2011 LETICIA WADE APRNA L 789.00 abdominal pain 09/28/2011 CINTHIA WADE APRNWNYA L V68.1 Issue Of Repeat Prescriptions 09/28/2011 MICHELINE BAUMANN RAQUEL R 789.00 abdominal pain 09/28/2011 MALACHI TOBIAS APRNINA R V68.1 Issue Of Repeat Prescriptions 09/28/2011 WHITE DDS, ELLIOT J 789.00 abdominal pain 09/28/2011 WHITE DDS, ELLIOT J V68.1 Issue Of Repeat Prescriptions 09/28/2011 CARMEN GIBBS MD 789.00 abdominal pain 09/28/2011 CARMEN GIBBS MD V68.1 Issue Of Repeat Prescriptions 09/28/2011 ROLON DO, EMIL K 789.00 abdominal pain 09/28/2011 GONZALES GAMING EMIL K V68.1 Issue Of Repeat Prescriptions 09/28/2011 ANSON WADE APRN L 789.00 abdominal pain 09/28/2011 ANSON WADE APRN L V68.1 Issue Of Repeat Prescriptions 09/28/2011 CARMEN GIBBS MD N 789.00 abdominal pain 09/28/2011 CARMEN GIBBS MD V68.1 Issue Of Repeat Prescriptions 09/28/2011 CARMEN GIBBS MD 789.00 abdominal pain 09/28/2011 CARMEN GIBBS MD V68.1 Issue Of Repeat Prescriptions 09/28/2011 ANSON WADE APRN L 789.00 abdominal pain 09/28/2011 ANSON WADE APRN L V68.1 Issue Of Repeat Prescriptions 09/28/2011 ROLON SUDHIR GAMINGA K 789.00 abdominal pain 09/28/2011 ROLON DO EMIL K V68.1 Issue Of Repeat Prescriptions 10/09/2011 Ot 789.06 ABDOMINAL PAIN, EPIGASTRIC 10/30/2011 DEB VILLAVICENCIO, REGINO Christie 256.4 POLYCYSTIC OVARIAN SYNDROME 10/30/2011 256.4 POLYCYSTIC OVARIAN SYNDROME 10/30/2011 BRENNA LOBATO APRN 256.4 POLYCYSTIC OVARIAN SYNDROME 10/30/2011 ROLON DO EMIL K 256.4 POLYCYSTIC OVARIAN SYNDROME 10/30/2011 ELLY DOUGLAS MD 256.4 POLYCYSTIC OVARIAN SYNDROME 10/30/2011 CARMEN GIBBS MD 256.4 POLYCYSTIC OVARIAN SYNDROME 10/30/2011 CARMEN GIBBS MD 256.4 POLYCYSTIC OVARIAN SYNDROME 10/30/2011 RAQUEL LOPEZ DDS 256.4 POLYCYSTIC OVARIAN SYNDROME 10/30/2011 ROLON DO EMIL K 256.4 POLYCYSTIC OVARIAN SYNDROME 10/30/2011 CARMEN GIBBS MD 256.4 POLYCYSTIC OVARIAN SYNDROME 10/30/2011 CARMEN GIBBS MD 256.4 POLYCYSTIC OVARIAN SYNDROME 10/30/2011 OSMAN ALVAREZ APRN 256.4 POLYCYSTIC OVARIAN SYNDROME 10/30/2011 ROLON DO EMIL K 256.4 POLYCYSTIC OVARIAN SYNDROME 10/30/2011 ROLON DO, EMIL K 256.4 POLYCYSTIC OVARIAN SYNDROME 10/30/2011 ROLON DO, EMIL K 256.4 POLYCYSTIC OVARIAN SYNDROME 10/30/2011 OSMAN ALVAREZ APRN 256.4 POLYCYSTIC OVARIAN SYNDROME 10/30/2011 ROLON DO EMIL K 256.4 POLYCYSTIC OVARIAN SYNDROME 10/30/2011 ROLON DO EMIL K 256.4 POLYCYSTIC OVARIAN SYNDROME 10/30/2011 CRISTINO LOBATO APRNIA R 256.4 POLYCYSTIC OVARIAN SYNDROME 10/30/2011 SHERI BAUMANN, ANSON L 256.4 POLYCYSTIC OVARIAN SYNDROME 10/30/2011 EMERY LOBATO APRNRICIA R 256.4 POLYCYSTIC OVARIAN SYNDROME 10/30/2011 CARMEN GIBBS MD 256.4 POLYCYSTIC OVARIAN SYNDROME 10/30/2011 SUDHIR ROLON DOA K 256.4 POLYCYSTIC OVARIAN SYNDROME 10/30/2011 MICHELINE BAUMANN RAQUEL R 256.4 POLYCYSTIC OVARIAN SYNDROME 10/30/2011 CARMEN GIBBS MD 256.4 POLYCYSTIC OVARIAN SYNDROME 10/30/2011 CRISTINO LOBATO APRNIA R 256.4 POLYCYSTIC OVARIAN SYNDROME 10/30/2011 MICHELINE BAUMANN RAQUEL R 256.4 POLYCYSTIC OVARIAN SYNDROME 10/30/2011 CARMEN GIBBS MD N 256.4 POLYCYSTIC OVARIAN SYNDROME 10/30/2011 ANSON WADE APRN L 256.4 POLYCYSTIC OVARIAN SYNDROME 10/30/2011 LETICIA WADE APRNA L 256.4 POLYCYSTIC OVARIAN SYNDROME 10/30/2011 MALACHI TOBIAS APRNINA R 256.4 POLYCYSTIC OVARIAN SYNDROME 10/30/2011 JOSH VILLAVICENCIO, ELLIOT J 256.4 POLYCYSTIC OVARIAN SYNDROME 10/30/2011 CARMEN GIBBS MD 256.4 POLYCYSTIC OVARIAN SYNDROME 10/30/2011 EMIL ROLON DO K 256.4 POLYCYSTIC OVARIAN SYNDROME 10/30/2011 LETICIA WADE APRNA L 256.4 POLYCYSTIC OVARIAN SYNDROME 10/30/2011 CARMEN GIBBS MD 256.4 POLYCYSTIC OVARIAN SYNDROME 10/30/2011 CARMEN GIBBS MD 256.4 POLYCYSTIC OVARIAN SYNDROME 10/30/2011 ANSON WADE APRN L 256.4 POLYCYSTIC OVARIAN SYNDROME 10/30/2011 ROLON SUDHIR GAMINGA K 256.4 POLYCYSTIC OVARIAN SYNDROME 11/05/2011 REGINO BOYD DDS 685.1 Pilonidal Cyst Without Abscess 11/05/2011 REGINO BOYD DDS V25.09 CONTRACEPTIVE COUNSELING - GENERAL 11/05/2011 REGINO BOYD DDS V65.3 COUNSELING - DIETARY 11/05/2011 REGINO BOYD DDS V65.41 EXERCISE COUNSELING 11/05/2011 DEB VILLAVICENCIO, REGINO N V74.5 Std Screen 11/05/2011 685.1 Pilonidal Cyst Without Abscess 11/05/2011 V25.09 CONTRACEPTIVE COUNSELING - GENERAL 11/05/2011 V65.3 COUNSELING - DIETARY 11/05/2011 V65.41 EXERCISE COUNSELING 11/05/2011 V74.5 Std Screen 11/05/2011 LUIS ALFREDO TYPO MACHINE OPERATOR, BRENNA R 685.1 Pilonidal Cyst Without Abscess 11/05/2011 LUIS ALFREDO TYPO MACHINE OPERATOR, BRENNA R V25.09 CONTRACEPTIVE COUNSELING - GENERAL 11/05/2011 LUIS ALFREDO TYPO MACHINE OPERATOR, BRENNA R V65.3 COUNSELING - DIETARY 11/05/2011 LUIS ALFREDO BAUMANN BRENNA R V65.41 EXERCISE COUNSELING 11/05/2011 LUIS ALFREDO BAUMANN BRENNA R V74.5 Std Screen 11/05/2011 ROLON DO, EMIL K 685.1 Pilonidal Cyst Without Abscess 11/05/2011 ROLON DO, EMIL K V25.09 CONTRACEPTIVE COUNSELING - GENERAL 11/05/2011 ROLON DO EMIL K V65.3 COUNSELING - DIETARY 11/05/2011 ROLON DO, EMIL K V65.41 EXERCISE COUNSELING 11/05/2011 ROLON DO, EMIL K V74.5 Std Screen 11/05/2011 ELLY DOUGLAS MD 685.1 Pilonidal Cyst Without Abscess 11/05/2011 ELLY DOUGLAS MD V25.09 CONTRACEPTIVE COUNSELING - GENERAL 11/05/2011 ELLY DOUGLAS MD V65.3 COUNSELING - DIETARY 11/05/2011 ELLY DOUGLAS MD V65.41 EXERCISE COUNSELING 11/05/2011 ELLY DOUGLAS MD V74.5 Std Screen 11/05/2011 CARMEN GIBBS MD 685.1 Pilonidal Cyst Without Abscess 11/05/2011 CARMEN GIBBS MD V25.09 CONTRACEPTIVE COUNSELING - GENERAL 11/05/2011 CARMEN GIBBS MD V65.3 COUNSELING - DIETARY 11/05/2011 CARMEN GIBBS MD V65.41 EXERCISE COUNSELING 11/05/2011 CARMEN GIBBS MD V74.5 Std Screen 11/05/2011 CARMEN GIBBS MD 685.1 Pilonidal Cyst Without Abscess 11/05/2011 CARMEN GIBBS MD V25.09 CONTRACEPTIVE COUNSELING - GENERAL 11/05/2011 CARMEN GIBBS MD V65.3 COUNSELING - DIETARY 11/05/2011 CARMEN GIBBS MD V65.41 EXERCISE COUNSELING 11/05/2011 CARMEN GIBBS MD V74.5 Std Screen 11/05/2011 JESSICA DDS, RAQUEL Galdamez 685.1 Pilonidal Cyst Without Abscess 11/05/2011 JESSICA DDS, RAQUEL Galdamez V25.09 CONTRACEPTIVE COUNSELING - GENERAL 11/05/2011 JESSICA DDS, RAQUEL Galdamez V65.3 COUNSELING - DIETARY 11/05/2011 JESSICA DDS, RAQUEL Galdamez V65.41 EXERCISE COUNSELING 11/05/2011 JESSICA DDS, RAQUEL Galdamez V74.5 Std Screen 11/05/2011 ROLON DO, EMIL K 685.1 Pilonidal Cyst Without Abscess 11/05/2011 ROLON DO, EMIL K V25.09 CONTRACEPTIVE COUNSELING - GENERAL 11/05/2011 ROLON DO, EMIL K V65.3 COUNSELING - DIETARY 11/05/2011 ROLON DO, EMIL K V65.41 EXERCISE COUNSELING 11/05/2011 ROLON DO, EMIL K V74.5 Std Screen 11/05/2011 CARMEN GIBBS MD 685.1 Pilonidal Cyst Without Abscess 11/05/2011 CARMEN GIBBS MD V25.09 CONTRACEPTIVE COUNSELING - GENERAL 11/05/2011 CARMEN GIBBS MD V65.3 COUNSELING - DIETARY 11/05/2011 CARMEN GIBBS MD V65.41 EXERCISE COUNSELING 11/05/2011 CARMEN GIBBS MD V74.5 Std Screen 11/05/2011 CARMEN GIBBS MD 685.1 Pilonidal Cyst Without Abscess 11/05/2011 CARMEN GIBBS MD V25.09 CONTRACEPTIVE COUNSELING - GENERAL 11/05/2011 CARMEN GIBBS MD V65.3 COUNSELING - DIETARY 11/05/2011 CARMEN GIBBS MD V65.41 EXERCISE COUNSELING 11/05/2011 CARMEN GIBBS MD V74.5 Std Screen 11/05/2011 OSMAN ALVAREZ APRN 685.1 Pilonidal Cyst Without Abscess 11/05/2011 OSMAN ALVAREZ APRN V25.09 CONTRACEPTIVE COUNSELING - GENERAL 11/05/2011 OSMAN ALVAREZ APRN V65.3 COUNSELING - DIETARY 11/05/2011 OSMAN ALVAREZ APRN V65.41 EXERCISE COUNSELING 11/05/2011 OSMAN ALVAREZ APRN V74.5 Std Screen 11/05/2011 ROLON DO, EMIL K 685.1 Pilonidal Cyst Without Abscess 11/05/2011 ROLON DO, EMIL K V25.09 CONTRACEPTIVE COUNSELING - GENERAL 11/05/2011 ROLON DO, EMIL K V65.3 COUNSELING - DIETARY 11/05/2011 ROLON DO, EMIL K V65.41 EXERCISE COUNSELING 11/05/2011 ROLON DO, EMIL K V74.5 Std Screen 11/05/2011 ROLON DO, EMIL K 685.1 Pilonidal Cyst Without Abscess 11/05/2011 ROLON DO, EMIL K V25.09 CONTRACEPTIVE COUNSELING - GENERAL 11/05/2011 ROLON DO, EMIL K V65.3 COUNSELING - DIETARY 11/05/2011 ROLON DO, EMIL K V65.41 EXERCISE COUNSELING 11/05/2011 ROLON DO, EMIL K V74.5 Std Screen 11/05/2011 ROLON DO, EMIL K 685.1 Pilonidal Cyst Without Abscess 11/05/2011 ROLON DO, EMIL K V25.09 CONTRACEPTIVE COUNSELING - GENERAL 11/05/2011 ROLNO DO, EMIL K V65.3 COUNSELING - DIETARY 11/05/2011 ROLON DO, EMIL K V65.41 EXERCISE COUNSELING 11/05/2011 ROLON DO, EMIL K V74.5 Std Screen 11/05/2011 OSMAN ALVAREZ APRN 685.1 Pilonidal Cyst Without Abscess 11/05/2011 OSMAN ALVAREZ APRN V25.09 CONTRACEPTIVE COUNSELING - GENERAL 11/05/2011 OSMAN ALVAREZ APRN V65.3 COUNSELING - DIETARY 11/05/2011 OSMAN ALVAREZ APRN V65.41 EXERCISE COUNSELING 11/05/2011 OSMAN ALVAREZ APRN V74.5 Std Screen 11/05/2011 ROLON DO, EMIL K 685.1 Pilonidal Cyst Without Abscess 11/05/2011 ROLON DO, EMIL K V25.09 CONTRACEPTIVE COUNSELING - GENERAL 11/05/2011 ROLON DO, EMIL K V65.3 COUNSELING - DIETARY 11/05/2011 ROLON DO, EMIL K V65.41 EXERCISE COUNSELING 11/05/2011 ROLON DO EMIL K V74.5 Std Screen 11/05/2011 GONZALES GAMING EMIL K 685.1 Pilonidal Cyst Without Abscess 11/05/2011 GONZALES GAMING EMIL K V25.09 CONTRACEPTIVE COUNSELING - GENERAL 11/05/2011 ROLON DO EMIL K V65.3 COUNSELING - DIETARY 11/05/2011 GONZALES GAMING EMIL K V65.41 EXERCISE COUNSELING 11/05/2011 SUDHIR ROLON DOA K V74.5 Std Screen 11/05/2011 LUIS ALFREDO YUCRISTINO ChristieIA R 685.1 Pilonidal Cyst Without Abscess 11/05/2011 CRISTINO LOBATO APRNIA R V25.09 CONTRACEPTIVE COUNSELING - GENERAL 11/05/2011 EMERY LOBATO APRNRICIA R V65.3 COUNSELING - DIETARY 11/05/2011 CRISTINO LOBATO APRNIA R V65.41 EXERCISE COUNSELING 11/05/2011 CRISTINO LOBATO APRNIA R V74.5 Std Screen 11/05/2011 SHERI YULETICIA ChristieA L 685.1 Pilonidal Cyst Without Abscess 11/05/2011 SHERI YUShahnaz ANSON L V25.09 CONTRACEPTIVE COUNSELING - GENERAL 11/05/2011 SHERI YUTIM ChristieNYA L V65.3 COUNSELING - DIETARY 11/05/2011 SHERI YUCINTHIA ChristieANSON L V65.41 EXERCISE COUNSELING 11/05/2011 SHERI YUTIM ChristieNYA L V74.5 Std Screen 11/05/2011 CRISTINO LOBATO APRNIA R 685.1 Pilonidal Cyst Without Abscess 11/05/2011 EMERY LOBATO APRNRICIA R V25.09 CONTRACEPTIVE COUNSELING - GENERAL 11/05/2011 EMERY LOBATO APRNRICIA R V65.3 COUNSELING - DIETARY 11/05/2011 EMERY LOBATO APRNRICIA R V65.41 EXERCISE COUNSELING 11/05/2011 EMERY LOBATO APRNRICIA R V74.5 Std Screen 11/05/2011 CARMEN GIBBS MD 685.1 Pilonidal Cyst Without Abscess 11/05/2011 CARMEN GIBBS MD V25.09 CONTRACEPTIVE COUNSELING - GENERAL 11/05/2011 CARMEN GIBBS MD V65.3 COUNSELING - DIETARY 11/05/2011 CARMEN GIBBS MD V65.41 EXERCISE COUNSELING 11/05/2011 CARMEN GIBBS MD V74.5 Std Screen 11/05/2011 ROLON DO, EMIL K 685.1 Pilonidal Cyst Without Abscess 11/05/2011 ROLON DO, EMIL K V25.09 CONTRACEPTIVE COUNSELING - GENERAL 11/05/2011 ROLON DO, EMIL K V65.3 COUNSELING - DIETARY 11/05/2011 ROLON DO, EMIL K V65.41 EXERCISE COUNSELING 11/05/2011 ROLON DO, EMIL K V74.5 Std Screen 11/05/2011 RAQUEL TOBIAS APRN R 685.1 Pilonidal Cyst Without Abscess 11/05/2011 RAQUEL TOBIAS APRN R V25.09 CONTRACEPTIVE COUNSELING - GENERAL 11/05/2011 RAQUEL TOBIAS APRN R V65.3 COUNSELING - DIETARY 11/05/2011 RAQUEL TOBIAS APRN R V65.41 EXERCISE COUNSELING 11/05/2011 RAQUEL TOBIAS APRN R V74.5 Std Screen 11/05/2011 CAREMN GIBBS MD 685.1 Pilonidal Cyst Without Abscess 11/05/2011 CARMEN GIBBS MD V25.09 CONTRACEPTIVE COUNSELING - GENERAL 11/05/2011 CARMEN GIBBS MD V65.3 COUNSELING - DIETARY 11/05/2011 CARMEN GIBBS MD V65.41 EXERCISE COUNSELING 11/05/2011 CARMEN GIBBS MD V74.5 Std Screen 11/05/2011 BRENNA LOBATO APRN R 685.1 Pilonidal Cyst Without Abscess 11/05/2011 BRENNA LOBATO APRN R V25.09 CONTRACEPTIVE COUNSELING - GENERAL 11/05/2011 CRISTINO LOBATO APRNIA R V65.3 COUNSELING - DIETARY 11/05/2011 BRENNA LOBATO APRN R V65.41 EXERCISE COUNSELING 11/05/2011 BRENNA LOBATO APRN R V74.5 Std Screen 11/05/2011 RAQUEL TOBIAS APRN R 685.1 Pilonidal Cyst Without Abscess 11/05/2011 MALACHI TOBIAS APRNINA R V25.09 CONTRACEPTIVE COUNSELING - GENERAL 11/05/2011 MALACHI TOBIAS APRNINA R V65.3 COUNSELING - DIETARY 11/05/2011 MALACHI TOBIAS APRNINA R V65.41 EXERCISE COUNSELING 11/05/2011 MALACHI TOBIAS APRNINA R V74.5 Std Screen 11/05/2011 CARMEN GIBBS MD 685.1 Pilonidal Cyst Without Abscess 11/05/2011 CARMEN GIBBS MD V25.09 CONTRACEPTIVE COUNSELING - GENERAL 11/05/2011 CARMEN GIBBS MD V65.3 COUNSELING - DIETARY 11/05/2011 CARMEN GIBBS MD V65.41 EXERCISE COUNSELING 11/05/2011 CARMEN GIBBS MD V74.5 Std Screen 11/05/2011 SHERI YUANSON Christie L 685.1 Pilonidal Cyst Without Abscess 11/05/2011 SHERI YUANSON Christie L V25.09 CONTRACEPTIVE COUNSELING - GENERAL 11/05/2011 SHERI YULETICIA ChristieA L V65.3 COUNSELING - DIETARY 11/05/2011 SHERI YULETICIA ChristieA L V65.41 EXERCISE COUNSELING 11/05/2011 SHERI YULETICIA ChristieA L V74.5 Std Screen 11/05/2011 SHERI YULETICIA ChristieA L 685.1 Pilonidal Cyst Without Abscess 11/05/2011 SHERI YULETICIA ChristieA L V25.09 CONTRACEPTIVE COUNSELING - GENERAL 11/05/2011 SHERI YUShahnaz ANSON L V65.3 COUNSELING - DIETARY 11/05/2011 JOSE FRANCISCOBenji TYPO MACHINE OPERATORLETICIA ChristieA L V65.41 EXERCISE COUNSELING 11/05/2011 JOSE FRANCISCOBenji TYPO MACHINE OPERATORLETICIA ChristieA L V74.5 Std Screen 11/05/2011 MALACHI TOBIAS APRNINA R 685.1 Pilonidal Cyst Without Abscess 11/05/2011 MICHELINE BAUMANN RAQUEL R V25.09 CONTRACEPTIVE COUNSELING - GENERAL 11/05/2011 MALACHI TOBIAS APRNINA R V65.3 COUNSELING - DIETARY 11/05/2011 MALACHI TOBIAS APRNINA R V65.41 EXERCISE COUNSELING 11/05/2011 MALACHI TOBIAS APRNINA R V74.5 Std Screen 11/05/2011 WHITE DDS, ELLIOT J 685.1 Pilonidal Cyst Without Abscess 11/05/2011 WHITE DDS, ELLIOT J V25.09 CONTRACEPTIVE COUNSELING - GENERAL 11/05/2011 WHITE DDS, ELLIOT J V65.3 COUNSELING - DIETARY 11/05/2011 WHITE DDS, ELLIOT J V65.41 EXERCISE COUNSELING 11/05/2011 WHITE DDS, ELLIOT J V74.5 Std Screen 11/05/2011 CARMEN GIBBS MD 685.1 Pilonidal Cyst Without Abscess 11/05/2011 CARMEN GIBBS MD V25.09 CONTRACEPTIVE COUNSELING - GENERAL 11/05/2011 CARMEN GIBBS MD V65.3 COUNSELING - DIETARY 11/05/2011 CARMEN GIBBS MD V65.41 EXERCISE COUNSELING 11/05/2011 CARMEN GIBBS MD V74.5 Std Screen 11/05/2011 ROLON DO, EMIL K 685.1 Pilonidal Cyst Without Abscess 11/05/2011 ROLON DO, EMIL K V25.09 CONTRACEPTIVE COUNSELING - GENERAL 11/05/2011 GONZALES GAMING EMIL K V65.3 COUNSELING - DIETARY 11/05/2011 ROLON , EMIL K V65.41 EXERCISE COUNSELING 11/05/2011 GONZALES GAMING, EMIL K V74.5 Std Screen 11/05/2011 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, ANSON L 685.1 Pilonidal Cyst Without Abscess 11/05/2011 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, ANSON L V25.09 CONTRACEPTIVE COUNSELING - GENERAL 11/05/2011 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, ANSON L V65.3 COUNSELING - DIETARY 11/05/2011 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, ANSON L V65.41 EXERCISE COUNSELING 11/05/2011 JOSE FRANCISCOL TYPO MACHINE OPERATOR, ANSON L V74.5 Std Screen 11/05/2011 CARMEN GIBBS MD 685.1 Pilonidal Cyst Without Abscess 11/05/2011 CARMEN GIBBS MD V25.09 CONTRACEPTIVE COUNSELING - GENERAL 11/05/2011 CARMEN GIBBS MD V65.3 COUNSELING - DIETARY 11/05/2011 CARMEN GIBBS MD V65.41 EXERCISE COUNSELING 11/05/2011 CARMEN GIBBS MD V74.5 Std Screen 11/05/2011 CARMEN GIBBS MD 685.1 Pilonidal Cyst Without Abscess 11/05/2011 CARMEN GIBBS MD V25.09 CONTRACEPTIVE COUNSELING - GENERAL 11/05/2011 CARMEN GIBBS MD V65.3 COUNSELING - DIETARY 11/05/2011 CARMEN GIBBS MD V65.41 EXERCISE COUNSELING 11/05/2011 CARMEN GIBBS MD V74.5 Std Screen 11/05/2011 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, ANSON L 685.1 Pilonidal Cyst Without Abscess 11/05/2011 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, ANSON L V25.09 CONTRACEPTIVE COUNSELING - GENERAL 11/05/2011 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, ANSON L V65.3 COUNSELING - DIETARY 11/05/2011 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, ANSON L V65.41 EXERCISE COUNSELING 11/05/2011 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, ANSON L V74.5 Std Screen 11/05/2011 ROLON DO, EMIL K 685.1 Pilonidal Cyst Without Abscess 11/05/2011 ROLON DO EMIL K V25.09 CONTRACEPTIVE COUNSELING - GENERAL 11/05/2011 ROLON DO EMIL K V65.3 COUNSELING - DIETARY 11/05/2011 ROLON DO EMIL K V65.41 EXERCISE COUNSELING 11/05/2011 GONZALES GAMING EMIL K V74.5 Std Screen 11/05/2011 Ot 401.9 HYPERTENSION NOS 11/05/2011 Ot 784.0 HEADACHE 11/07/2011 DEB VILLAVICENCIO, REGINO Christie 008.8 Gastroenteritis, Viral 11/07/2011 008.8 Gastroenteritis, Viral 11/07/2011 BRENNA LOBATO APRN 008.8 Gastroenteritis, Viral 11/07/2011 SUDHIR ROLON DOA K 008.8 Gastroenteritis, Viral 11/07/2011 ELLY DOUGLAS MD 008.8 Gastroenteritis, Viral 11/07/2011 CARMEN GIBBS MD 008.8 Gastroenteritis, Viral 11/07/2011 CARMEN GIBBS MD 008.8 Gastroenteritis, Viral 11/07/2011 RAQUEL LOPEZ DDS 008.8 Gastroenteritis, Viral 11/07/2011 EMIL ROLON DO 008.8 Gastroenteritis, Viral 11/07/2011 CARMEN GIBBS MD 008.8 Gastroenteritis, Viral 11/07/2011 SAI MD, CARMEN N 008.8 Gastroenteritis, Viral 11/07/2011 OSMAN ALVAREZ APRN T 008.8 Gastroenteritis, Viral 11/07/2011 ROLON DO, EMIL K 008.8 Gastroenteritis, Viral 11/07/2011 ROLON DO, EMIL K 008.8 Gastroenteritis, Viral 11/07/2011 ROLON DO, EMIL K 008.8 Gastroenteritis, Viral 11/07/2011 OSMAN ALVAREZ APRN T 008.8 Gastroenteritis, Viral 11/07/2011 ROLON DO, EMIL K 008.8 Gastroenteritis, Viral 11/07/2011 ROLON DO, EMIL K 008.8 Gastroenteritis, Viral 11/07/2011 BRENNA LOBATO APRN R 008.8 Gastroenteritis, Viral 11/07/2011 ANSON WADE APRN 008.8 Gastroenteritis, Viral 11/07/2011 BRENNA LOBATO APRN R 008.8 Gastroenteritis, Viral 11/07/2011 CARMEN GIBBS MD 008.8 Gastroenteritis, Viral 11/07/2011 SUDHIR ROLON DOA K 008.8 Gastroenteritis, Viral 11/07/2011 RAQUEL TOBIAS APRN R 008.8 Gastroenteritis, Viral 11/07/2011 CARMEN GIBBS MD 008.8 Gastroenteritis, Viral 11/07/2011 BRENNA LOBATO APRN R 008.8 Gastroenteritis, Viral 11/07/2011 RAQUEL TOBIAS APRN R 008.8 Gastroenteritis, Viral 11/07/2011 CARMEN GIBBS MD 008.8 Gastroenteritis, Viral 11/07/2011 ANSON WADE APRN 008.8 Gastroenteritis, Viral 11/07/2011 ANSON WADE APRN 008.8 Gastroenteritis, Viral 11/07/2011 MALACHI TOBIAS APRNINA R 008.8 Gastroenteritis, Viral 11/07/2011 ELLIOT MORENO DDS 008.8 Gastroenteritis, Viral 11/07/2011 CARMEN GIBBS MD 008.8 Gastroenteritis, Viral 11/07/2011 EMIL ROLON DO K 008.8 Gastroenteritis, Viral 11/07/2011 ANSON WADE APRN L 008.8 Gastroenteritis, Viral 11/07/2011 CARMEN GIBBS MD 008.8 Gastroenteritis, Viral 11/07/2011 CARMEN GIBBS MD 008.8 Gastroenteritis, Viral 11/07/2011 ANSON WADE APRN 008.8 Gastroenteritis, Viral 11/07/2011 GONZALES GAMING, EMIL K 008.8 Gastroenteritis, Viral 12/10/2011 DEB VILLAVICENCIO, REGINO Christie 724.79 Other Disorders Of Coccyx 12/10/2011 724.79 Other Disorders Of Coccyx 12/10/2011 BRENNA LOBATO APRN R 724.79 Other Disorders Of Coccyx 12/10/2011 GONZALES GAMING, EMIL K 724.79 Other Disorders Of Coccyx 12/10/2011 ELLY DOUGLAS MD 724.79 Other Disorders Of Coccyx 12/10/2011 CARMEN GIBBS MD 724.79 Other Disorders Of Coccyx 12/10/2011 CARMEN GIBBS MD 724.79 Other Disorders Of Coccyx 12/10/2011 RAQUEL LOPEZ DDS 724.79 Other Disorders Of Coccyx 12/10/2011 ROLON , EMIL K 724.79 Other Disorders Of Coccyx 12/10/2011 CARMEN GIBBS MD 724.79 Other Disorders Of Coccyx 12/10/2011 CARMEN GIBBS MD 724.79 Other Disorders Of Coccyx 12/10/2011 OSMAN ALVAREZ APRN 724.79 Other Disorders Of Coccyx 12/10/2011 ROLON DO, EMIL K 724.79 Other Disorders Of Coccyx 12/10/2011 ROLON DO, EMIL K 724.79 Other Disorders Of Coccyx 12/10/2011 ROLON DO, EMIL K 724.79 Other Disorders Of Coccyx 12/10/2011 OSMAN ALVAREZ APRN 724.79 Other Disorders Of Coccyx 12/10/2011 ROLON DO, EMIL K 724.79 Other Disorders Of Coccyx 12/10/2011 ROLON DO, EMIL K 724.79 Other Disorders Of Coccyx 12/10/2011 BRENNA LOBATO APRN R 724.79 Other Disorders Of Coccyx 12/10/2011 ANSON WADE APRN 724.79 Other Disorders Of Coccyx 12/10/2011 BRENNA LOBATO APRN R 724.79 Other Disorders Of Coccyx 12/10/2011 CARMEN GIBBS MD 724.79 Other Disorders Of Coccyx 12/10/2011 ROLON DO EMIL K 724.79 Other Disorders Of Coccyx 12/10/2011 MICHELINE BAUMANN RAQUEL R 724.79 Other Disorders Of Coccyx 12/10/2011 CARMEN GIBBS MD N 724.79 Other Disorders Of Coccyx 12/10/2011 BRENNA LOBATO APRN R 724.79 Other Disorders Of Coccyx 12/10/2011 MALACHI TOBIAS APRNINA R 724.79 Other Disorders Of Coccyx 12/10/2011 CARMEN GIBBS MD N 724.79 Other Disorders Of Coccyx 12/10/2011 MADBenji BAUMANN ANSON L 724.79 Other Disorders Of Coccyx 12/10/2011 MADBenji BAUMANN, ANSON L 724.79 Other Disorders Of Coccyx 12/10/2011 MALACHI TOBIAS APRNINA R 724.79 Other Disorders Of Coccyx 12/10/2011 ELLIOT MORENO DDS 724.79 Other Disorders Of Coccyx 12/10/2011 CARMEN GIBBS MD N 724.79 Other Disorders Of Coccyx 12/10/2011 EMIL ROLON DO K 724.79 Other Disorders Of Coccyx 12/10/2011 SHERI BAUMANN ANSON L 724.79 Other Disorders Of Coccyx 12/10/2011 CAMREN GIBBS MD N 724.79 Other Disorders Of Coccyx 12/10/2011 CARMEN GIBBS MD N 724.79 Other Disorders Of Coccyx 12/10/2011 LETICIA WADE APRNA L 724.79 Other Disorders Of Coccyx 12/10/2011 EMIL ROLON DO K 724.79 Other Disorders Of Coccyx 12/31/2011 DEB VILLAVICENCIO, REGINO Christie V25.11 IUD INSERTION 12/31/2011 V25.11 IUD INSERTION 12/31/2011 BRENNA LOBATO APRN V25.11 IUD INSERTION 12/31/2011 EMIL ROLON DO V25.11 IUD INSERTION 12/31/2011 ELLY DOUGLAS MD V25.11 IUD INSERTION 12/31/2011 CARMEN GIBBS MD V25.11 IUD INSERTION 12/31/2011 CARMEN GIBBS MD V25.11 IUD INSERTION 12/31/2011 JESSICA JETERS, RAQUEL Galdamez V25.11 IUD INSERTION 12/31/2011 ROLON DO, EMIL K V25.11 IUD INSERTION 12/31/2011 CARMEN GIBBS MD V25.11 IUD INSERTION 12/31/2011 CARMEN GIBBS MD V25.11 IUD INSERTION 12/31/2011 OSMAN ALVAREZ APRN V25.11 IUD INSERTION 12/31/2011 ROLON DO, EMIL K V25.11 IUD INSERTION 12/31/2011 ROLON DO, EMIL K V25.11 IUD INSERTION 12/31/2011 ROLON DO, EMIL K V25.11 IUD INSERTION 12/31/2011 OSMAN ALVAREZ APRN V25.11 IUD INSERTION 12/31/2011 ROLON DO, EMIL K V25.11 IUD INSERTION 12/31/2011 ROLON DO, EMIL K V25.11 IUD INSERTION 12/31/2011 LUIS ALFREDO BAUMANN BRENNA R V25.11 IUD INSERTION 12/31/2011 SHERI BAUMANN ANSON L V25.11 IUD INSERTION 12/31/2011 LUIS ALFREDO BAUMANN BRENNA R V25.11 IUD INSERTION 12/31/2011 CARMEN GIBBS MD V25.11 IUD INSERTION 12/31/2011 EMIL ROLON DO K V25.11 IUD INSERTION 12/31/2011 MICHELINE BAUMANN, RAQUEL R V25.11 IUD INSERTION 12/31/2011 CARMEN GIBBS MD V25.11 IUD INSERTION 12/31/2011 LUIS ALFREDO BAUMANN BRENNA R V25.11 IUD INSERTION 12/31/2011 MICHELINE BAUMANN, RAQUEL R V25.11 IUD INSERTION 12/31/2011 CARMEN GIBBS MD N V25.11 IUD INSERTION 12/31/2011 SHERI BAUMANN, ANSON L V25.11 IUD INSERTION 12/31/2011 SHERI BAUMANN ANSON L V25.11 IUD INSERTION 12/31/2011 MICHELINE BAUMANN, RAQUEL R V25.11 IUD INSERTION 12/31/2011 JOSH VILLAVICENCIO, ELLIOT J V25.11 IUD INSERTION 12/31/2011 CARMEN GIBBS MD V25.11 IUD INSERTION 12/31/2011 EMIL ROLON DO K V25.11 IUD INSERTION 12/31/2011 SHERI BAUMANN, ANSON L V25.11 IUD INSERTION 12/31/2011 SAI [place], CARMEN Christie V25.11 IUD INSERTION 12/31/2011 SAI [place], CARMEN N V25.11 IUD INSERTION 12/31/2011 SHERI BAUMANN, ANSON L V25.11 IUD INSERTION 12/31/2011 GONZALES GAMING, EMIL K V25.11 IUD INSERTION 01/21/2012 DEB VILLAVICENCIO, REGINO N 078.11 Condyloma Acuminatum 01/21/2012 078.11 Condyloma Acuminatum 01/21/2012 BRENNA LOBATO APRN 078.11 Condyloma Acuminatum 01/21/2012 EMIL ROLON DO K 078.11 Condyloma Acuminatum 01/21/2012 STELLA [place], ELLY 078.11 Condyloma Acuminatum 01/21/2012 CARMEN GIBBS MD 078.11 Condyloma Acuminatum 01/21/2012 CARMEN GIBBS MD 078.11 Condyloma Acuminatum 01/21/2012 JESSICA VILLAVICENCIO, RAQUEL Galdamez 078.11 Condyloma Acuminatum 01/21/2012 GONZALES GAMING, EMIL K 078.11 Condyloma Acuminatum 01/21/2012 CARMEN GIBBS MD N 078.11 Condyloma Acuminatum 01/21/2012 CARMEN GIBBS MD 078.11 Condyloma Acuminatum 01/21/2012 OSMAN ALVAREZ APRN 078.11 Condyloma Acuminatum 01/21/2012 ROLON DO, EMIL K 078.11 Condyloma Acuminatum 01/21/2012 ROLON DO, EMIL K 078.11 Condyloma Acuminatum 01/21/2012 ROLON DO, EMIL K 078.11 Condyloma Acuminatum 01/21/2012 OSMAN ALVAREZ APRN 078.11 Condyloma Acuminatum 01/21/2012 ROLON DO, EMIL K 078.11 Condyloma Acuminatum 01/21/2012 ROLON , EMIL K 078.11 Condyloma Acuminatum 01/21/2012 LOBATO TYPO MACHINE OPERATOR, BRENNA R 078.11 Condyloma Acuminatum 01/21/2012 SHERI TYPO MACHINE OPERATOR, ANSON L 078.11 Condyloma Acuminatum 01/21/2012 LUIS ALFREDO BAUMANN, BRENNA R 078.11 Condyloma Acuminatum 01/21/2012 CARMEN GIBBS MD N 078.11 Condyloma Acuminatum 01/21/2012 EMIL ROLON DO K 078.11 Condyloma Acuminatum 01/21/2012 MICHELINE BAUMANN, RAQUEL R 078.11 Condyloma Acuminatum 01/21/2012 CARMEN GIBBS MD N 078.11 Condyloma Acuminatum 01/21/2012 CRISTINO LOBATO APRNIA R 078.11 Condyloma Acuminatum 01/21/2012 MICHELINE BAMUANN, RAQUEL R 078.11 Condyloma Acuminatum 01/21/2012 CARMEN GIBBS MD N 078.11 Condyloma Acuminatum 01/21/2012 SHERI BAUMANN, ANSON L 078.11 Condyloma Acuminatum 01/21/2012 LETICIA WADE APRNA L 078.11 Condyloma Acuminatum 01/21/2012 MICHELINE BAUMANN RAQUEL R 078.11 Condyloma Acuminatum 01/21/2012 JOSH VILLAVICENCIO, ELLIOT J 078.11 Condyloma Acuminatum 01/21/2012 CARMEN GIBBS MD N 078.11 Condyloma Acuminatum 01/21/2012 EMIL ROLON DO K 078.11 Condyloma Acuminatum 01/21/2012 SHERI BAUMANN, ANSON L 078.11 Condyloma Acuminatum 01/21/2012 CARMEN GIBBS MD N 078.11 Condyloma Acuminatum 01/21/2012 CARMEN GIBBS MD N 078.11 Condyloma Acuminatum 01/21/2012 SHERI BAUMANN, ANSON L 078.11 Condyloma Acuminatum 01/21/2012 EMIL ROLON DO K 078.11 Condyloma Acuminatum 02/02/2012 Ot 719.45 JOINT PAIN- PELVIS 02/02/2012 Ot 726.5 ENTHESOPATHY OF HIP 03/10/2012 Ot 724.79 DISORDER OF COCCYX NEC 03/18/2012 DEB VILLAVICENCIO, REGINO Christie 388.70 Otalgia 03/18/2012 388.70 Otalgia 03/18/2012 BRENNA LOBATO APRN R 388.70 Otalgia 03/18/2012 ROLON DO, EMIL K 388.70 Otalgia 03/18/2012 ELLY DOUGLAS MD 388.70 Otalgia 03/18/2012 CARMEN GIBBS MD 388.70 Otalgia 03/18/2012 CARMEN GIBBS MD 388.70 Otalgia 03/18/2012 JESSICA VILLAVICENCIO, RAQUEL Galdamez 388.70 Otalgia 03/18/2012 ROLON DO, EMIL K 388.70 Otalgia 03/18/2012 CARMEN GIBBS MD 388.70 Otalgia 03/18/2012 CARMEN GIBBS MD 388.70 Otalgia 03/18/2012 OSMAN ALVAREZ APRN 388.70 Otalgia 03/18/2012 ROLON DO, EMIL K 388.70 Otalgia 03/18/2012 ROLON DO, EMIL K 388.70 Otalgia 03/18/2012 ROLON DO, EMIL K 388.70 Otalgia 03/18/2012 OSMAN ALVAREZ APRN 388.70 Otalgia 03/18/2012 ROLON DO, EMIL K 388.70 Otalgia 03/18/2012 ROLON DO, EMIL K 388.70 Otalgia 03/18/2012 BRENNA LOBATO APRN R 388.70 Otalgia 03/18/2012 ANSON WADE APRN 388.70 Otalgia 03/18/2012 BRENNA LOBATO APRN R 388.70 Otalgia 03/18/2012 CARMEN GIBBS MD 388.70 Otalgia 03/18/2012 ROLON DO, EMIL K 388.70 Otalgia 03/18/2012 RAQUEL TOBIAS APRN R 388.70 Otalgia 03/18/2012 CARMEN GIBBS MD 388.70 Otalgia 03/18/2012 BRENNA LOBATO APRN R 388.70 Otalgia 03/18/2012 MICHELINE TYPO MACHINE OPERATOR, RAQUEL R 388.70 Otalgia 03/18/2012 CARMEN GIBBS MD 388.70 Otalgia 03/18/2012 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, ANSON L 388.70 Otalgia 03/18/2012 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, ANSON L 388.70 Otalgia 03/18/2012 MICHELINE BAUMANN, RAQUEL R 388.70 Otalgia 03/18/2012 ELLIOT MORENO DDS 388.70 Otalgia 03/18/2012 CARMEN GIBBS MD 388.70 Otalgia 03/18/2012 EMIL ROLON DO 388.70 Otalgia 03/18/2012 MADBenji TYPO MACHINE OPERATOR, ANSON L 388.70 Otalgia 03/18/2012 CARMEN GIBBS MD 388.70 Otalgia 03/18/2012 CARMEN GIBBS MD 388.70 Otalgia 03/18/2012 MADBenji TYPO MACHINE OPERATOR, ANSON L 388.70 Otalgia 03/18/2012 EMIL ROLON DO K 388.70 Otalgia 03/20/2012 REGINO BOYD DDS 719.47 Pain In Joint Involving Ankle And Foot 03/20/2012 719.47 Pain In Joint Involving Ankle And Foot 03/20/2012 BRENNA LOBATO APRN 719.47 Pain In Joint Involving Ankle And Foot 03/20/2012 EMIL ROLON DO 719.47 Pain In Joint Involving Ankle And Foot 03/20/2012 ELLY DOUGLAS MD 719.47 Pain In Joint Involving Ankle And Foot 03/20/2012 CARMEN GIBBS MD 719.47 Pain In Joint Involving Ankle And Foot 03/20/2012 CARMEN GIBBS MD 719.47 Pain In Joint Involving Ankle And Foot 03/20/2012 RAQUEL LOPEZ DDS 719.47 Pain In Joint Involving Ankle And Foot 03/20/2012 EMIL ROLON DO 719.47 Pain In Joint Involving Ankle And Foot 03/20/2012 CARMEN GIBBS MD 719.47 Pain In Joint Involving Ankle And Foot 03/20/2012 CARMEN GIBBS MD 719.47 Pain In Joint Involving Ankle And Foot 03/20/2012 OSMAN ALVAREZ APRN 719.47 Pain In Joint Involving Ankle And Foot 03/20/2012 ROLON DOSUDHIRA K 719.47 Pain In Joint Involving Ankle And Foot 03/20/2012 ROLON DOSUDHIRA K 719.47 Pain In Joint Involving Ankle And Foot 03/20/2012 ROLON DOSUDHIRA K 719.47 Pain In Joint Involving Ankle And Foot 03/20/2012 OSMAN ALVAREZ APRN 719.47 Pain In Joint Involving Ankle And Foot 03/20/2012 ROLON DOSUDHIRA K 719.47 Pain In Joint Involving Ankle And Foot 03/20/2012 ROLON DOSUDHIRA K 719.47 Pain In Joint Involving Ankle And Foot 03/20/2012 BRENNA LOBATO APRN R 719.47 Pain In Joint Involving Ankle And Foot 03/20/2012 ANSON WADE APRN 719.47 Pain In Joint Involving Ankle And Foot 03/20/2012 BRENNA LOBATO APRN R 719.47 Pain In Joint Involving Ankle And Foot 03/20/2012 CARMEN GIBBS MD 719.47 Pain In Joint Involving Ankle And Foot 03/20/2012 EMIL ROLON DO K 719.47 Pain In Joint Involving Ankle And Foot 03/20/2012 RAQUEL TOBIAS APRN R 719.47 Pain In Joint Involving Ankle And Foot 03/20/2012 CARMEN GIBBS MD 719.47 Pain In Joint Involving Ankle And Foot 03/20/2012 BRENNA LOBATO APRN R 719.47 Pain In Joint Involving Ankle And Foot 03/20/2012 RAQUEL TOBIAS APRN R 719.47 Pain In Joint Involving Ankle And Foot 03/20/2012 CARMEN GIBBS MD 719.47 Pain In Joint Involving Ankle And Foot 03/20/2012 ANSON WADE APRN L 719.47 Pain In Joint Involving Ankle And Foot 03/20/2012 ANSON WADE APRN L 719.47 Pain In Joint Involving Ankle And Foot 03/20/2012 RAQUEL TOBIAS APRN R 719.47 Pain In Joint Involving Ankle And Foot 03/20/2012 ELLIOT MORENO DDS 719.47 Pain In Joint Involving Ankle And Foot 03/20/2012 CARMEN GIBBS MD 719.47 Pain In Joint Involving Ankle And Foot 03/20/2012 GONZALES GAMING EMIL K 719.47 Pain In Joint Involving Ankle And Foot 03/20/2012 ANSON WADE APRN 719.47 Pain In Joint Involving Ankle And Foot 03/20/2012 CARMEN GIBBS MD N 719.47 Pain In Joint Involving Ankle And Foot 03/20/2012 CARMEN GIBBS MD 719.47 Pain In Joint Involving Ankle And Foot 03/20/2012 ANSON WADE APRN 719.47 Pain In Joint Involving Ankle And Foot 03/20/2012 ROLON DO EMIL K 719.47 Pain In Joint Involving Ankle And Foot 04/02/2012 REGINO BOYD DDS 789.01 ABDOMINAL PAIN RIGHT UPPER QUADRANT 04/02/2012 789.01 ABDOMINAL PAIN RIGHT UPPER QUADRANT 04/02/2012 BRENNA LOBATO APRN 789.01 ABDOMINAL PAIN RIGHT UPPER QUADRANT 04/02/2012 ROLON DO EMIL K 789.01 ABDOMINAL PAIN RIGHT UPPER QUADRANT 04/02/2012 ELLY DOUGLAS MD 789.01 ABDOMINAL PAIN RIGHT UPPER QUADRANT 04/02/2012 CARMEN GIBBS MD N 789.01 ABDOMINAL PAIN RIGHT UPPER QUADRANT 04/02/2012 CARMEN GIBBS MD 789.01 ABDOMINAL PAIN RIGHT UPPER QUADRANT 04/02/2012 RAQUEL LOPEZ DDS 789.01 ABDOMINAL PAIN RIGHT UPPER QUADRANT 04/02/2012 ROLON DO EMIL K 789.01 ABDOMINAL PAIN RIGHT UPPER QUADRANT 04/02/2012 CARMEN GIBBS MD 789.01 ABDOMINAL PAIN RIGHT UPPER QUADRANT 04/02/2012 CARMEN GIBBS MD 789.01 ABDOMINAL PAIN RIGHT UPPER QUADRANT 04/02/2012 OSMAN ALVAREZ APRN 789.01 ABDOMINAL PAIN RIGHT UPPER QUADRANT 04/02/2012 ROLON DO, EMIL K 789.01 ABDOMINAL PAIN RIGHT UPPER QUADRANT 04/02/2012 ROLON DO, EMIL K 789.01 ABDOMINAL PAIN RIGHT UPPER QUADRANT 04/02/2012 ROLON DO, EMIL K 789.01 ABDOMINAL PAIN RIGHT UPPER QUADRANT 04/02/2012 OSMAN ALVAREZ APRN 789.01 ABDOMINAL PAIN RIGHT UPPER QUADRANT 04/02/2012 ROLON DO, EMIL K 789.01 ABDOMINAL PAIN RIGHT UPPER QUADRANT 04/02/2012 ROLON DO, EMIL K 789.01 ABDOMINAL PAIN RIGHT UPPER QUADRANT 04/02/2012 EMERY LOBATO APRNRICIA R 789.01 ABDOMINAL PAIN RIGHT UPPER QUADRANT 04/02/2012 SHERI BAUMANN, ANSON L 789.01 ABDOMINAL PAIN RIGHT UPPER QUADRANT 04/02/2012 LUIS ALFREDO BAUMANN BRENNA R 789.01 ABDOMINAL PAIN RIGHT UPPER QUADRANT 04/02/2012 CARMEN GIBBS MD N 789.01 ABDOMINAL PAIN RIGHT UPPER QUADRANT 04/02/2012 ROLON DO EMIL K 789.01 ABDOMINAL PAIN RIGHT UPPER QUADRANT 04/02/2012 MICHELINE BAUMANN RAQUEL R 789.01 ABDOMINAL PAIN RIGHT UPPER QUADRANT 04/02/2012 CARMEN GIBBS MD N 789.01 ABDOMINAL PAIN RIGHT UPPER QUADRANT 04/02/2012 BRENNA LOBATO APRN R 789.01 ABDOMINAL PAIN RIGHT UPPER QUADRANT 04/02/2012 MICHELINE BAUMANN RAQUEL R 789.01 ABDOMINAL PAIN RIGHT UPPER QUADRANT 04/02/2012 CARMEN GIBBS MD N 789.01 ABDOMINAL PAIN RIGHT UPPER QUADRANT 04/02/2012 CINTHIA WADE APRNWNYA L 789.01 ABDOMINAL PAIN RIGHT UPPER QUADRANT 04/02/2012 CINTHIA WADE APRNWNYA L 789.01 ABDOMINAL PAIN RIGHT UPPER QUADRANT 04/02/2012 MALACHI TOBIAS APRNINA R 789.01 ABDOMINAL PAIN RIGHT UPPER QUADRANT 04/02/2012 JOSH VILLAVICENCIO, ELLIOT J 789.01 ABDOMINAL PAIN RIGHT UPPER QUADRANT 04/02/2012 CARMEN GIBBS MD N 789.01 ABDOMINAL PAIN RIGHT UPPER QUADRANT 04/02/2012 ROLON SUDHIR GAMINGA K 789.01 ABDOMINAL PAIN RIGHT UPPER QUADRANT 04/02/2012 SHERI BAUMANN ANSON L 789.01 ABDOMINAL PAIN RIGHT UPPER QUADRANT 04/02/2012 CARMEN GIBBS MD N 789.01 ABDOMINAL PAIN RIGHT UPPER QUADRANT 04/02/2012 CARMEN GIBBS MD N 789.01 ABDOMINAL PAIN RIGHT UPPER QUADRANT 04/02/2012 SHERI BAUMANN ANSON L 789.01 ABDOMINAL PAIN RIGHT UPPER QUADRANT 04/02/2012 ROLON DO EMIL K 789.01 ABDOMINAL PAIN RIGHT UPPER QUADRANT 04/02/2012 Ot 599.0 URIN TRACT INFECTION NOS 04/02/2012 Ot 789.00 ABDOMINAL PAIN, UNSPECIFIED SITE 04/02/2012 Ot V45.51 PRESENCE OF INTRAUTERINE CONTRACEPTIVE D 04/10/2012 DEB VILLAVICENCIO, REGINO Christie 278.01 OBESITY, MORBID (BMI >40) 04/10/2012 278.01 OBESITY, MORBID (BMI >40) 04/10/2012 BRENNA LOBATO APRN 278.01 OBESITY, MORBID (BMI >40) 04/10/2012 GONZALES GAMING EMIL K 278.01 OBESITY, MORBID (BMI >40) 04/10/2012 ELLY DOUGLAS MD 278.01 OBESITY, MORBID (BMI >40) 04/10/2012 CARMEN GIBBS MD 278.01 OBESITY, MORBID (BMI >40) 04/10/2012 CARMEN GIBBS MD 278.01 OBESITY, MORBID (BMI >40) 04/10/2012 JESSICA VILLAVICENCIO, RAQUEL Galdamez 278.01 OBESITY, MORBID (BMI >40) 04/10/2012 GONZALES GAMING EMIL K 278.01 OBESITY, MORBID (BMI >40) 04/10/2012 CARMEN GIBBS MD 278.01 OBESITY, MORBID (BMI >40) 04/10/2012 CARMEN GIBBS MD 278.01 OBESITY, MORBID (BMI >40) 04/10/2012 OSMAN ALVAREZ APRN 278.01 OBESITY, MORBID (BMI >40) 04/10/2012 GONZALES GAMING EMIL K 278.01 OBESITY, MORBID (BMI >40) 04/10/2012 GONZALES GAMING EMIL K 278.01 OBESITY, MORBID (BMI >40) 04/10/2012 GONZALES GAMING EMIL K 278.01 OBESITY, MORBID (BMI >40) 04/10/2012 OSMAN ALVAREZ APRN 278.01 OBESITY, MORBID (BMI >40) 04/10/2012 GONZALES GAMING EMIL K 278.01 OBESITY, MORBID (BMI >40) 04/10/2012 GONZALES GMAING EMIL K 278.01 OBESITY, MORBID (BMI >40) 04/10/2012 BRENNA LOBATO APRN 278.01 OBESITY, MORBID (BMI >40) 04/10/2012 ANSON WADE APRN 278.01 OBESITY, MORBID (BMI >40) 04/10/2012 BRENNA LOBATO APRN 278.01 OBESITY, MORBID (BMI >40) 04/10/2012 CARMEN GIBBS MD 278.01 OBESITY, MORBID (BMI >40) 04/10/2012 EMIL ROLON DO 278.01 OBESITY, MORBID (BMI >40) 04/10/2012 RAQUEL TOBIAS APRN R 278.01 OBESITY, MORBID (BMI >40) 04/10/2012 CARMEN GIBBS MD 278.01 OBESITY, MORBID (BMI >40) 04/10/2012 BRENNA LOBATO APRN R 278.01 OBESITY, MORBID (BMI >40) 04/10/2012 RAQUEL TOBIAS APRN R 278.01 OBESITY, MORBID (BMI >40) 04/10/2012 CARMEN GIBBS MD 278.01 OBESITY, MORBID (BMI >40) 04/10/2012 ANSON WADE APRN L 278.01 OBESITY, MORBID (BMI >40) 04/10/2012 ANSON WADE APRN L 278.01 OBESITY, MORBID (BMI >40) 04/10/2012 RAQUEL TOBIAS APRN R 278.01 OBESITY, MORBID (BMI >40) 04/10/2012 ELLIOT MORENO DDS 278.01 OBESITY, MORBID (BMI >40) 04/10/2012 CARMEN GIBBS MD 278.01 OBESITY, MORBID (BMI >40) 04/10/2012 EMIL ROLON DO 278.01 OBESITY, MORBID (BMI >40) 04/10/2012 ANSON WADE APRN 278.01 OBESITY, MORBID (BMI >40) 04/10/2012 CARMEN GIBBS MD 278.01 OBESITY, MORBID (BMI >40) 04/10/2012 CARMEN GIBBS MD 278.01 OBESITY, MORBID (BMI >40) 04/10/2012 ANSON WADE APRN L 278.01 OBESITY, MORBID (BMI >40) 04/10/2012 EMIL ROLON DO 278.01 OBESITY, MORBID (BMI >40) 04/15/2012 Ot 327.23 OBSTRUCTIVE SLEEP APNEA (ADULT) (PEDIATR 04/30/2012 Ot 327.23 OBSTRUCTIVE SLEEP APNEA (ADULT) (PEDIATR 05/05/2012 REGINO BOYD DDS 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 05/05/2012 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 05/05/2012 LUIS ALFREDO BAUMANN, BRENNA R 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 05/05/2012 ROLON DO, EMIL K 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 05/05/2012 ELLY DOUGLAS MD 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 05/05/2012 CARMEN GIBBS MD 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 05/05/2012 CARMEN GIBBS MD 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 05/05/2012 RAQUEL LOPEZ DDS 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 05/05/2012 ROLON DO, EMIL K 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 05/05/2012 CARMEN GIBBS MD 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 05/05/2012 CARMEN GIBBS MD 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 05/05/2012 OSMAN ALVAREZ APRN 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 05/05/2012 ROLON DO, EMIL K 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 05/05/2012 ROLON DO, EMIL K 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 05/05/2012 ROLON DO, EMIL K 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 05/05/2012 OSMAN ALVAREZ APRN 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 05/05/2012 ROLON DO, EMIL K 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 05/05/2012 ROLON DO, EMIL K 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 05/05/2012 CRISTINO LOBATO APRNIA R 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 05/05/2012 ANSON WADE APRN L 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 05/05/2012 BRENNA LOBATO APRN R 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 05/05/2012 CARMEN GIBBS MD 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 05/05/2012 ROLON DO, EMIL K 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 05/05/2012 RAQUEL TOBIAS APRN R 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 05/05/2012 SAI MD, CARMEN N 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 05/05/2012 EMERY LOBATO APRNRICIA R 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 05/05/2012 MICHELINE BAUMANN, RAQUEL R 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 05/05/2012 CARMEN GIBBS MD N 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 05/05/2012 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, ANSON L 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 05/05/2012 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, ANSON L 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 05/05/2012 MICHELINE TYPO MACHINE OPERATOR, RAQUEL R 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 05/05/2012 JOSH VILLAVICENCIO, ELLIOT Alston 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 05/05/2012 CARMEN GIBBS MD N 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 05/05/2012 EMIL ROLON DO K 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 05/05/2012 CINTHIA WADE APRNWNYA L 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 05/05/2012 CARMEN GIBBS MD N 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 05/05/2012 CARMEN GIBBS MD 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 05/05/2012 LETICIA WADE APRNA L 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 05/05/2012 EMIL ROLON DO K 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 05/12/2012 DEB VILLAVICENCIO, REGINO Christie 461.9 Sinusitis Acute 05/12/2012 461.9 Sinusitis Acute 05/12/2012 BRENNA LOBATO APRN R 461.9 Sinusitis Acute 05/12/2012 ROLON SUDHIR GAMINGA K 461.9 Sinusitis Acute 05/12/2012 ELLY DOUGLAS MD 461.9 Sinusitis Acute 05/12/2012 CARMEN GIBBS MD 461.9 Sinusitis Acute 05/12/2012 CARMEN GIBBS MD 461.9 Sinusitis Acute 05/12/2012 JESSICA VILLAVICENCIO, RAQUEL Galdamez 461.9 Sinusitis Acute 05/12/2012 ROLON EMIL GAMING K 461.9 Sinusitis Acute 05/12/2012 CARMEN GIBBS MD 461.9 Sinusitis Acute 05/12/2012 CARMEN GIBBS MD 461.9 Sinusitis Acute 05/12/2012 OSMAN ALVAREZ APRN 461.9 Sinusitis Acute 05/12/2012 ROLON DO, EMIL K 461.9 Sinusitis Acute 05/12/2012 ROLON DO, EMIL K 461.9 Sinusitis Acute 05/12/2012 ROLON DO, EMIL K 461.9 Sinusitis Acute 05/12/2012 OSMAN ALVAREZ APRN 461.9 Sinusitis Acute 05/12/2012 ROLON DO, EMIL K 461.9 Sinusitis Acute 05/12/2012 ROLON DO, EMIL K 461.9 Sinusitis Acute 05/12/2012 BRENNA LOBATO APRN R 461.9 Sinusitis Acute 05/12/2012 LETICIA WADE APRNA L 461.9 Sinusitis Acute 05/12/2012 CRISTINO LOBATO APRNIA R 461.9 Sinusitis Acute 05/12/2012 CARMEN GIBBS MD 461.9 Sinusitis Acute 05/12/2012 EMIL ROLON DO K 461.9 Sinusitis Acute 05/12/2012 MICHELINE BAUMANN RAQUEL R 461.9 Sinusitis Acute 05/12/2012 CARMEN GIBBS MD 461.9 Sinusitis Acute 05/12/2012 BRENNA LOBATO APRN R 461.9 Sinusitis Acute 05/12/2012 MICHELINE BAUMANN RAQUEL R 461.9 Sinusitis Acute 05/12/2012 CARMEN GIBBS MD 461.9 Sinusitis Acute 05/12/2012 ANSON WADE APRN L 461.9 Sinusitis Acute 05/12/2012 LETICIA WADE APRNA L 461.9 Sinusitis Acute 05/12/2012 MICHELINE BAUMANN RAQUEL R 461.9 Sinusitis Acute 05/12/2012 ELLIOT MORENO DDS 461.9 Sinusitis Acute 05/12/2012 CARMEN GIBBS MD N 461.9 Sinusitis Acute 05/12/2012 ROLON SUDHIR GAMINGA K 461.9 Sinusitis Acute 05/12/2012 LETICIA WADE APRNA L 461.9 Sinusitis Acute 05/12/2012 CARMEN GIBBS MD 461.9 Sinusitis Acute 05/12/2012 CARMEN GIBBS MD 461.9 Sinusitis Acute 05/12/2012 ANSON WADE APRN 461.9 Sinusitis Acute 05/12/2012 EMIL ROLON DO K 461.9 Sinusitis Acute 05/19/2012 DEB JETERS, REGINO N 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 05/19/2012 JANNIEOGHALArturo JETERS, REGINO N V58.32 SUTURE REMOVAL 05/19/2012 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 05/19/2012 V58.32 Suture Removal 05/19/2012 BRENNA LOBATO APRN R 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 05/19/2012 BRENNA LOBATO APRN R V58.32 Suture Removal 05/19/2012 EMIL ROLON DO K 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 05/19/2012 EMIL ROLON DO K V58.32 Suture Removal 05/19/2012 ELLY DOUGLAS MD 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 05/19/2012 ELLY DOUGLAS MD V58.32 Suture Removal 05/19/2012 CARMEN GIBBS MD 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 05/19/2012 CARMEN GIBBS MD V58.32 Suture Removal 05/19/2012 CARMEN GIBBS MD 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 05/19/2012 CARMEN GIBBS MD V58.32 Suture Removal 05/19/2012 RAQUEL LOPEZ DDS 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 05/19/2012 RAQUEL LOPEZ DDS V58.32 Suture Removal 05/19/2012 EMIL ROLON DO K 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 05/19/2012 EMIL ROLON DO V58.32 Suture Removal 05/19/2012 CARMEN GIBBS MD 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 05/19/2012 CARMEN GIBBS MD V58.32 Suture Removal 05/19/2012 CARMEN GIBBS MD 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 05/19/2012 CARMEN GIBBS MD V58.32 Suture Removal 05/19/2012 OSMAN ALVAREZ APRN T 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 05/19/2012 OSMAN ALVAREZ APRN T V58.32 Suture Removal 05/19/2012 ROLON DO, EMIL K 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 05/19/2012 ROLON DO, EMIL K V58.32 Suture Removal 05/19/2012 ROLON DO, EMIL K 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 05/19/2012 ROLON DO, EMIL K V58.32 Suture Removal 05/19/2012 ROLON DO, EMIL K 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 05/19/2012 ROLON DO, EMIL K V58.32 Suture Removal 05/19/2012 OSMAN ALVAREZ APRN 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 05/19/2012 OSMAN ALVAREZ APRN T V58.32 Suture Removal 05/19/2012 ROLON DO, EMIL K 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 05/19/2012 ROLON DO, EMIL K V58.32 Suture Removal 05/19/2012 ROLON DO, EMIL K 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 05/19/2012 ROLON DO, EMIL K V58.32 Suture Removal 05/19/2012 LUI SALFREDO BAUMANN BRENNA R 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 05/19/2012 LUIS ALFREDO BAUMANN BRENNA R V58.32 Suture Removal 05/19/2012 SHERI BAUMANN ANSON L 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 05/19/2012 SHERI BAUMANN ANSON L V58.32 Suture Removal 05/19/2012 LUIS ALFREDO BAUMANN BRENNA R 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 05/19/2012 LUIS ALFREDO BAUMANN BRENNA R V58.32 Suture Removal 05/19/2012 CARMEN GIBBS MD 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 05/19/2012 CARMEN GIBBS MD V58.32 Suture Removal 05/19/2012 ROLON DO, EMIL K 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 05/19/2012 ROLON DO, EMIL K V58.32 Suture Removal 05/19/2012 RAQUEL TOBIAS APRN R 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 05/19/2012 MICHELINE TYPO MACHINE OPERATOR, RAQUEL R V58.32 Suture Removal 05/19/2012 CARMEN GIBBS MD N 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 05/19/2012 CARMEN GIBBS MD N V58.32 Suture Removal 05/19/2012 LUIS ALFREDO TYPO MACHINE OPERATOR, BRENNA R 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 05/19/2012 LUIS ALFREDO BAUMANN, BRENNA R V58.32 Suture Removal 05/19/2012 MICHELINE BAUMANN RAQUEL R 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 05/19/2012 MICHELINE BAUMANN, RAQUEL R V58.32 Suture Removal 05/19/2012 CARMEN GIBBS MD N 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 05/19/2012 CARMEN GIBBS MD V58.32 Suture Removal 05/19/2012 JOSE FRANCISCOL PASTOR ANSON L 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32 Suture Removal 05/19/2012 ROLON DO, EMIL K 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 05/19/2012 ROLON DO, EMIL K V58.32 SUTURE REMOVAL 05/19/2012 SHERI BAUMANN ANSON L 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 05/19/2012 SHERI BAUMANN ANSON L V58.32 Suture Removal 05/19/2012 CARMEN GIBBS MD N 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 05/19/2012 CARMEN GIBBS MD V58.32 Suture Removal 05/19/2012 CARMEN GIBBS MD N 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 05/19/2012 CARMEN GIBBS MD V58.32 Suture Removal 05/19/2012 JOSE FRANCISCOBenji BAUMANNANSON Benji 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 05/19/2012 JOSE FRANCISCOANSON Leblanc APRN V58.32 Suture Removal 05/19/2012 EMIL ROLON DO K 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 05/19/2012 EMIL ROLON DO K V58.32 Suture Removal 05/28/2012 Ot 256.4 POLYCYSTIC OVARIES 05/28/2012 Ot 530.81 ESOPHAGEAL REFLUX 06/03/2012 Ot 599.0 URIN TRACT INFECTION NOS 06/03/2012 Ot 625.9 FEM GENITAL SYMPTOMS NOS 07/02/2012 704.1 HIRSUTISM 07/02/2012 BRENNA LOBATO APRN 704.1 HIRSUTISM 07/02/2012 EMIL ROLON DO 704.1 HIRSUTISM 07/02/2012 ELLY DOUGLAS MD 704.1 HIRSUTISM 07/02/2012 CARMEN GIBBS MD 704.1 HIRSUTISM 07/02/2012 CARMEN GIBBS MD 704.1 HIRSUTISM 07/02/2012 RAQUEL LOPEZ DDS 704.1 HIRSUTISM 07/02/2012 EMIL ROLON DO 704.1 HIRSUTISM 07/02/2012 CARMEN GIBBS MD 704.1 HIRSUTISM 07/02/2012 CARMEN GIBBS MD 704.1 HIRSUTISM 07/02/2012 OSMAN ALVAREZ APRN 704.1 HIRSUTISM 07/02/2012 EMIL ROLON DO 704.1 HIRSUTISM 07/02/2012 EMIL ROLON DO K 704.1 HIRSUTISM 07/02/2012 SUDHIR ROLON DOA K 704.1 HIRSUTISM 07/02/2012 OSMAN ALVAREZ APRN 704.1 HIRSUTISM 07/02/2012 EMIL ROLON DO K 704.1 HIRSUTISM 07/02/2012 SUDHIR ROLON DOA K 704.1 HIRSUTISM 07/02/2012 LUIS ALFREDO BAUMANN, BRENNA R 704.1 HIRSUTISM 07/02/2012 SHERI TYPO MACHINE OPERATOR, ANSON L 704.1 HIRSUTISM 07/02/2012 LUIS ALFREDO BAUMANN, BRENNA R 704.1 HIRSUTISM 07/02/2012 CARMEN GIBBS MD N 704.1 HIRSUTISM 07/02/2012 EMIL ROLON DO K 704.1 HIRSUTISM 07/02/2012 MICHELINE BAUMANN RAQUEL R 704.1 HIRSUTISM 07/02/2012 CARMEN GIBBS MD N 704.1 HIRSUTISM 07/02/2012 BRENNA LOBATO APRN R 704.1 HIRSUTISM 07/02/2012 MICHELINE BAUMANN RAQUEL R 704.1 HIRSUTISM 07/02/2012 CARMEN GIBBS MD N 704.1 HIRSUTISM 07/02/2012 LETICIA WADE APRNA L 704.1 HIRSUTISM 07/02/2012 SHERI BAUMANN ANSON L 704.1 HIRSUTISM 07/02/2012 MALACHI TOBIAS APRNINA R 704.1 HIRSUTISM 07/02/2012 JOSH VILLAVICENCIO, ELLIOT Alston 704.1 HIRSUTISM 07/02/2012 CARMEN GIBBS MD N 704.1 HIRSUTISM 07/02/2012 LETICIA WADE APRNA L 704.1 HIRSUTISM 07/02/2012 CARMEN GIBBS MD N 704.1 HIRSUTISM 07/02/2012 CARMEN GIBBS MD N 704.1 HIRSUTISM 07/02/2012 CINTHIA WADE APRNWNYA L 704.1 HIRSUTISM 07/02/2012 EMIL ROLON DO K 704.1 HIRSUTISM 07/07/2012 BRENNA LOBATO APRN R 786.2 cough 07/07/2012 EMIL ROLON DO K 786.2 cough 07/07/2012 ELLY DOUGLAS MD 786.2 cough 07/07/2012 CARMEN GIBBS MD 786.2 cough 07/07/2012 CARMEN GIBBS MD N 786.2 cough 07/07/2012 JESSICA VILLAVICENCIO, RAQUEL Galdamez 786.2 cough 07/07/2012 ROLON DO, EMIL K 786.2 cough 07/07/2012 CARMEN GIBBS MD N 786.2 COUGH 07/07/2012 CARMEN GIBBS MD N 786.2 COUGH 07/07/2012 KIM TYPO MACHINE OPERATOR, OSMAN T 786.2 COUGH 07/07/2012 ROLON DO, EMIL K 786.2 COUGH 07/07/2012 ROLON DO, EMIL K 786.2 COUGH 07/07/2012 ROLON DO, EMIL K 786.2 COUGH 07/07/2012 KIM TYPO MACHINE OPERATOR, OSMAN T 786.2 COUGH 07/07/2012 ROLON DO, EMIL K 786.2 COUGH 07/07/2012 ROLON DO, EMIL K 786.2 COUGH 07/07/2012 LUIS ALFREDO BAUMANN, BRENNA R 786.2 COUGH 07/07/2012 SHERI TYPO MACHINE OPERATOR, ANSON L 786.2 COUGH 07/07/2012 LUIS ALFREDO BAUMANN, BRENNA R 786.2 COUGH 07/07/2012 CARMEN GIBBS MD N 786.2 COUGH 07/07/2012 ROLON DO, EMIL K 786.2 COUGH 07/07/2012 MICHELINE BAUMANN, RAQUEL R 786.2 COUGH 07/07/2012 CARMEN GIBBS MD N 786.2 COUGH 07/07/2012 LUIS ALFREDO BAUMANN, BRENNA R 786.2 COUGH 07/07/2012 MICHELINE BAUMANN, RAQUEL R 786.2 COUGH 07/07/2012 CARMEN GIBBS MD N 786.2 COUGH 07/07/2012 SHERI TYPO MACHINE OPERATOR, ANSON L 786.2 COUGH 07/07/2012 SHERI TYPO MACHINE OPERATOR, ANSON L 786.2 COUGH 07/07/2012 MICHELINE BAUMANN, RAQUEL R 786.2 COUGH 07/07/2012 JOSH VILLAVICENCIO, ELLIOT Alston 786.2 COUGH 07/07/2012 CARMEN GIBBS MD N 786.2 COUGH 07/07/2012 SHERI TYPO MACHINE OPERATOR, ANSON L 786.2 COUGH 07/07/2012 CARMEN GIBBS MD N 786.2 COUGH 07/07/2012 CARMEN GIBBS MD N 786.2 COUGH 07/07/2012 SHERI BAUMANN, ANSON L 786.2 COUGH 07/07/2012 GONZALES GAMING EMIL K 786.2 COUGH 07/09/2012 Ot 493.92 ASTHMA, UNSPECIFIED, W (ACUTE) EXACERBAT 07/09/2012 Ot 786.2 COUGH 08/20/2012 ROLON DO, EMIL K 054.9 HERPES SIMPLEX WITHOUT COMPLICATION 08/20/2012 ROLON , EMIL K 112.1 CANDIDIASIS VAGINAL 08/20/2012 ELLY DOUGLAS MD 054.9 HERPES SIMPLEX WITHOUT COMPLICATION 08/20/2012 ELLY DOUGLAS MD 112.1 CANDIDIASIS VAGINAL 08/20/2012 CARMEN GIBBS MD 054.9 HERPES SIMPLEX WITHOUT COMPLICATION 08/20/2012 CARMEN GIBBS MD 112.1 CANDIDIASIS VAGINAL 08/20/2012 CARMEN GIBBS MD 054.9 HERPES SIMPLEX WITHOUT COMPLICATION 08/20/2012 CARMEN GIBBS MD N 112.1 CANDIDIASIS VAGINAL 08/20/2012 RAQUEL LOPEZ DDS 054.9 HERPES SIMPLEX WITHOUT COMPLICATION 08/20/2012 RAQUEL LOPEZ DDS 112.1 CANDIDIASIS VAGINAL 08/20/2012 GONZALES GAMING EMIL K 054.9 HERPES SIMPLEX WITHOUT COMPLICATION 08/20/2012 GONZALES GAMING EMIL K 112.1 CANDIDIASIS VAGINAL 08/20/2012 CARMEN GIBBS MD 054.9 HERPES SIMPLEX WITHOUT COMPLICATION 08/20/2012 CARMEN GIBBS MD N 112.1 CANDIDIASIS VAGINAL 08/20/2012 CARMEN GIBBS MD N 054.9 HERPES SIMPLEX WITHOUT COMPLICATION 08/20/2012 CARMEN GIBBS MD N 112.1 CANDIDIASIS VAGINAL 08/20/2012 OSMAN ALVAREZ APRN 054.9 HERPES SIMPLEX WITHOUT COMPLICATION 08/20/2012 OSMAN ALVAREZ APRN 112.1 CANDIDIASIS VAGINAL 08/20/2012 GONZALES GAMING EMIL K 054.9 HERPES SIMPLEX WITHOUT COMPLICATION 08/20/2012 ROLON DO EMIL K 112.1 CANDIDIASIS VAGINAL 08/20/2012 ROLON DO EMIL K 054.9 HERPES SIMPLEX WITHOUT COMPLICATION 08/20/2012 ROLON , EMIL K 112.1 CANDIDIASIS VAGINAL 08/20/2012 ROLON , EMIL K 054.9 HERPES SIMPLEX WITHOUT COMPLICATION 08/20/2012 ROLON DO EMIL K 112.1 CANDIDIASIS VAGINAL 08/20/2012 KIM TYPO MACHINE OPERATOR, OSMAN T 054.9 HERPES SIMPLEX WITHOUT COMPLICATION 08/20/2012 KIM YUN, OSMAN T 112.1 CANDIDIASIS VAGINAL 08/20/2012 ROLON DO, EMIL K 054.9 HERPES SIMPLEX WITHOUT COMPLICATION 08/20/2012 ROLON DO, EMIL K 112.1 CANDIDIASIS VAGINAL 08/20/2012 ROLON DO, EMIL K 054.9 HERPES SIMPLEX WITHOUT COMPLICATION 08/20/2012 ROLON DO, EMIL K 112.1 CANDIDIASIS VAGINAL 08/20/2012 LUIS ALFREDO YUN, BRENNA R 054.9 HERPES SIMPLEX WITHOUT COMPLICATION 08/20/2012 LUIS ALFREDO TYPO MACHINE OPERATOR, BRENNA R 112.1 CANDIDIASIS VAGINAL 08/20/2012 SHERI TYPO MACHINE OPERATOR, ANSON L 054.9 HERPES SIMPLEX WITHOUT COMPLICATION 08/20/2012 SHERI TYPO MACHINE OPERATOR, ANSON L 112.1 CANDIDIASIS VAGINAL 08/20/2012 LUIS ALFREDO YUN, BRENNA R 054.9 HERPES SIMPLEX WITHOUT COMPLICATION 08/20/2012 LUIS ALFREDO YUN, BRENNA R 112.1 CANDIDIASIS VAGINAL 08/20/2012 CARMEN GIBBS MD N 054.9 HERPES SIMPLEX WITHOUT COMPLICATION 08/20/2012 CARMEN GIBBS MD N 112.1 CANDIDIASIS VAGINAL 08/20/2012 ROLON DO, EMIL K 054.9 HERPES SIMPLEX WITHOUT COMPLICATION 08/20/2012 GONZALES GAMING, EMIL K 112.1 CANDIDIASIS VAGINAL 08/20/2012 MICHELINE BAUMANN, RAQUEL R 054.9 HERPES SIMPLEX WITHOUT COMPLICATION 08/20/2012 MICHELINE BAUMANN, RAQUEL R 112.1 CANDIDIASIS VAGINAL 08/20/2012 CARMEN GIBBS MD N 054.9 HERPES SIMPLEX WITHOUT COMPLICATION 08/20/2012 CARMEN GIBBS MD N 112.1 CANDIDIASIS VAGINAL 08/20/2012 LUIS ALFREDO YUN, BRENNA R 054.9 HERPES SIMPLEX WITHOUT COMPLICATION 08/20/2012 LUIS ALFREDO BAUMANN, BRENNA R 112.1 CANDIDIASIS VAGINAL 08/20/2012 MICHELINE BAUMANN, RAQUEL R 054.9 HERPES SIMPLEX WITHOUT COMPLICATION 08/20/2012 MICHELINE YUN, RAQUEL R 112.1 CANDIDIASIS VAGINAL 08/20/2012 CARMEN GIBBS MD N 054.9 HERPES SIMPLEX WITHOUT COMPLICATION 08/20/2012 CARMEN GIBBS MD N 112.1 CANDIDIASIS VAGINAL 08/20/2012 SHERI BAUMANN, ANSON L 054.9 HERPES SIMPLEX WITHOUT COMPLICATION 08/20/2012 MAD TYPO MACHINE OPERATOR, ANSON L 112.1 CANDIDIASIS VAGINAL 08/20/2012 [facility] TYPO MACHINE OPERATOR, ANSON L 054.9 HERPES SIMPLEX WITHOUT COMPLICATION 08/20/2012 MAD TYPO MACHINE OPERATOR, ANSON L 112.1 CANDIDIASIS VAGINAL 08/20/2012 MICHELINE TYPO MACHINE OPERATOR, RAQUEL R 054.9 HERPES SIMPLEX WITHOUT COMPLICATION 08/20/2012 MICHELINE TYPO MACHINE OPERATOR, RAQUEL R 112.1 CANDIDIASIS VAGINAL 08/20/2012 WHITE DDS, ELLIOT J 054.9 HERPES SIMPLEX WITHOUT COMPLICATION 08/20/2012 WHITE DDS, ELLIOT J 112.1 CANDIDIASIS VAGINAL 08/20/2012 CARMEN GIBBS MD N 054.9 HERPES SIMPLEX WITHOUT COMPLICATION 08/20/2012 CARMEN GIBBS MD N 112.1 CANDIDIASIS VAGINAL 08/20/2012 [facility] TYPO MACHINE OPERATOR, ANSON L 054.9 HERPES SIMPLEX WITHOUT COMPLICATION 08/20/2012 [facility] TYPO MACHINE OPERATOR, ANSON L 112.1 CANDIDIASIS VAGINAL 08/20/2012 CARMEN GIBBS MD N 054.9 HERPES SIMPLEX WITHOUT COMPLICATION 08/20/2012 CARMEN GIBBS MD N 112.1 CANDIDIASIS VAGINAL 08/20/2012 CARMEN GIBBS MD N 054.9 HERPES SIMPLEX WITHOUT COMPLICATION 08/20/2012 CARMEN GIBBS MD N 112.1 CANDIDIASIS VAGINAL 08/20/2012 [facility] TYPO MACHINE OPERATOR, ANSON L 054.9 HERPES SIMPLEX WITHOUT COMPLICATION 08/20/2012 [facility] TYPO MACHINE OPERATOR, ANSON L 112.1 CANDIDIASIS VAGINAL 08/20/2012 EMIL ROLON DO K 054.9 HERPES SIMPLEX WITHOUT COMPLICATION 08/20/2012 EMIL ROLON DO K 112.1 CANDIDIASIS VAGINAL 09/25/2012 Ot 789.09 ABDOMINAL PAIN, OTHER SPECIFIED SITE 09/25/2012 Ot V45.89 POSTSURGICAL STATES NEC 09/25/2012 Ot V58.69 OT MED,LT, CURRENT USE 11/01/2012 YAN CHAPARRO DO Ot 571.8 CHRONIC LIVER DIS NEC 11/01/2012 YAN CHAPARRO DO Ot 599.0 URIN TRACT INFECTION NOS 11/01/2012 YAN CHAPARRO DO Ot 789.01 ABDOMINAL PAIN, RIGHT UPPER QUADRANT 11/29/2012 ISSAC MASTERS MD Ot 338.18 OTHER ACUTE POSTOPERATIVE PAIN 11/29/2012 ISSAC MASTERS MD Ot V45.77 ACQRD ABSENCE OF GENITAL ORGANS 12/30/2012 JOHN GALDAMEZ MD Ot 354.0 CARPAL TUNNEL SYNDROME 12/30/2012 JOHN GALDAMEZ MD Ot 782.0 SKIN SENSATION DISTURB 01/25/2013 SHANKAR GAMING YAN K Ot 724.79 DISORDER OF COCCYX NEC 02/12/2013 RADHA MALLORY MD Ot 784.0 HEADACHE 03/08/2013 YAN CHAPARRO DO Ot 784.0 HEADACHE 05/03/2013 IZABELA RENDON MD Ot 599.0 URIN TRACT INFECTION NOS 05/03/2013 IZABELA RENDON MD Ot 789.09 ABDOMINAL PAIN, OTHER SPECIFIED SITE 05/11/2013 GEORGES FINN APRN Ot 682.6 CELLULITIS OF LEG 05/11/2013 GEORGES 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 Ot 782.1 NONSPECIF SKIN ERUPT NEC 05/12/2013 ELLY DOUGLAS MD 686.9 UNSPECIFIED LOCAL INFECTION OF SKIN AND SUBCUTANEOUS TISSUE 05/12/2013 CARMEN GIBBS MD 686.9 UNSPECIFIED LOCAL INFECTION OF SKIN AND SUBCUTANEOUS TISSUE 05/12/2013 CARMEN GIBBS MD 686.9 UNSPECIFIED LOCAL INFECTION OF SKIN AND SUBCUTANEOUS TISSUE 05/12/2013 RAQUEL LOPEZ DDS 686.9 UNSPECIFIED LOCAL INFECTION OF SKIN AND SUBCUTANEOUS TISSUE 05/12/2013 EMIL ROLON DO 686.9 UNSPECIFIED LOCAL INFECTION OF SKIN AND SUBCUTANEOUS TISSUE 05/12/2013 CARMEN GIBBS MD 686.9 UNSPECIFIED LOCAL INFECTION OF SKIN AND SUBCUTANEOUS TISSUE 05/12/2013 CARMEN GIBBS MD 686.9 UNSPECIFIED LOCAL INFECTION OF SKIN AND SUBCUTANEOUS TISSUE 05/12/2013 OSMAN ALVAREZ APRN 686.9 UNSPECIFIED LOCAL INFECTION OF SKIN AND SUBCUTANEOUS TISSUE 05/12/2013 EMIL ROLON DO 686.9 UNSPECIFIED LOCAL INFECTION OF SKIN AND SUBCUTANEOUS TISSUE 05/12/2013 EMIL ROLON DO 686.9 UNSPECIFIED LOCAL INFECTION OF SKIN AND SUBCUTANEOUS TISSUE 05/12/2013 EMIL ROLON DO 686.9 UNSPECIFIED LOCAL INFECTION OF SKIN AND SUBCUTANEOUS TISSUE 05/12/2013 OSMAN ALVAREZ APRN 686.9 UNSPECIFIED LOCAL INFECTION OF SKIN AND SUBCUTANEOUS TISSUE 05/12/2013 ROLON DOSUDHIRA K 686.9 UNSPECIFIED LOCAL INFECTION OF SKIN AND SUBCUTANEOUS TISSUE 05/12/2013 ROLON DO, EMIL K 686.9 UNSPECIFIED LOCAL INFECTION OF SKIN AND SUBCUTANEOUS TISSUE 05/12/2013 LUIS ALFREDO BAUMANN, BRENNA R 686.9 UNSPECIFIED LOCAL INFECTION OF SKIN AND SUBCUTANEOUS TISSUE 05/12/2013 JOSE FRANCISCOL LETICIA BAUMANNA L 686.9 UNSPECIFIED LOCAL INFECTION OF SKIN AND SUBCUTANEOUS TISSUE 05/12/2013 BRENNA LOBATO APRN R 686.9 UNSPECIFIED LOCAL INFECTION OF SKIN AND SUBCUTANEOUS TISSUE 05/12/2013 CARMEN GIBBS MD 686.9 UNSPECIFIED LOCAL INFECTION OF SKIN AND SUBCUTANEOUS TISSUE 05/12/2013 SUDHIR ROLON DOA K 686.9 UNSPECIFIED LOCAL INFECTION OF SKIN AND SUBCUTANEOUS TISSUE 05/12/2013 MALACHI TOBIAS APRNINA R 686.9 UNSPECIFIED LOCAL INFECTION OF SKIN AND SUBCUTANEOUS TISSUE 05/12/2013 CARMEN GIBBS MD 686.9 UNSPECIFIED LOCAL INFECTION OF SKIN AND SUBCUTANEOUS TISSUE 05/12/2013 BRENNA LOBATO APRN R 686.9 UNSPECIFIED LOCAL INFECTION OF SKIN AND SUBCUTANEOUS TISSUE 05/12/2013 MALACHI TOBIAS APRNINA R 686.9 UNSPECIFIED LOCAL INFECTION OF SKIN AND SUBCUTANEOUS TISSUE 05/12/2013 CARMEN GIBBS MD 686.9 UNSPECIFIED LOCAL INFECTION OF SKIN AND SUBCUTANEOUS TISSUE 05/12/2013 LETICIA WADE APRNA L 686.9 UNSPECIFIED LOCAL INFECTION OF SKIN AND SUBCUTANEOUS TISSUE 05/12/2013 CINTHIA WADE APRNWNYA L 686.9 UNSPECIFIED LOCAL INFECTION OF SKIN AND SUBCUTANEOUS TISSUE 05/12/2013 MICHELINE BAUMANN RAQUEL R 686.9 UNSPECIFIED LOCAL INFECTION OF SKIN AND SUBCUTANEOUS TISSUE 05/12/2013 ELLIOT MORENO DDS 686.9 UNSPECIFIED LOCAL INFECTION OF SKIN AND SUBCUTANEOUS TISSUE 05/12/2013 CARMEN GIBBS MD 686.9 UNSPECIFIED LOCAL INFECTION OF SKIN AND SUBCUTANEOUS TISSUE 05/12/2013 ANSON WADE APRN L 686.9 UNSPECIFIED LOCAL INFECTION OF SKIN AND SUBCUTANEOUS TISSUE 05/12/2013 CARMEN GIBBS MD 686.9 UNSPECIFIED LOCAL INFECTION OF SKIN AND SUBCUTANEOUS TISSUE 05/12/2013 CARMEN GIBBS MD 686.9 UNSPECIFIED LOCAL INFECTION OF SKIN AND SUBCUTANEOUS TISSUE 05/12/2013 ANSON WADE APRN 686.9 UNSPECIFIED LOCAL INFECTION OF SKIN AND SUBCUTANEOUS TISSUE 05/12/2013 GONZALES GAMING EMIL K 686.9 UNSPECIFIED LOCAL INFECTION OF SKIN AND SUBCUTANEOUS TISSUE 05/27/2013 CARMEN GIBBS MD 307.81 TENSION HEADACHE 05/27/2013 CARMEN GIBBS MD 307.81 TENSION HEADACHE 05/27/2013 RAQUEL LOPEZ DDS 307.81 TENSION HEADACHE 05/27/2013 ROLON DO EMIL K 307.81 TENSION HEADACHE 05/27/2013 CARMEN GIBBS MD 307.81 TENSION HEADACHE 05/27/2013 CARMEN GIBBS MD 307.81 TENSION HEADACHE 05/27/2013 OSMAN ALVAREZ APRN 307.81 TENSION HEADACHE 05/27/2013 ROLON DO, EMIL K 307.81 TENSION HEADACHE 05/27/2013 ROLON DO, EMIL K 307.81 TENSION HEADACHE 05/27/2013 ROLON DO, EMIL K 307.81 TENSION HEADACHE 05/27/2013 OSMAN ALVAREZ APRN 307.81 TENSION HEADACHE 05/27/2013 ROLON DO, EMIL K 307.81 TENSION HEADACHE 05/27/2013 ROLON DO, EMIL K 307.81 TENSION HEADACHE 05/27/2013 BRENNA LOBATO APRN R 307.81 TENSION HEADACHE 05/27/2013 ANSON WADE APRN L 307.81 TENSION HEADACHE 05/27/2013 CRISTINO LOBATO APRNIA R 307.81 TENSION HEADACHE 05/27/2013 CARMEN GIBBS MD 307.81 TENSION HEADACHE 05/27/2013 SUDHIR ROLON DOA K 307.81 TENSION HEADACHE 05/27/2013 MALACHI TOBIAS APRNINA R 307.81 TENSION HEADACHE 05/27/2013 CARMEN GIBBS MD 307.81 TENSION HEADACHE 05/27/2013 BRENNA LOBATO APRN R 307.81 TENSION HEADACHE 05/27/2013 MALACHI TOBIAS APRNINA R 307.81 TENSION HEADACHE 05/27/2013 CARMEN GIBBS MD 307.81 TENSION HEADACHE 05/27/2013 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, ANSON L 307.81 TENSION HEADACHE 05/27/2013 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, ANSON L 307.81 TENSION HEADACHE 05/27/2013 MICHELINE TYPO MACHINE OPERATOR, RAQUEL R 307.81 TENSION HEADACHE 05/27/2013 JOSH VILLAVICENCIO, ELLIOT Alston 307.81 TENSION HEADACHE 05/27/2013 CARMEN GIBBS MD 307.81 TENSION HEADACHE 05/27/2013 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, ANSON L 307.81 TENSION HEADACHE 05/27/2013 CARMEN GIBBS MD 307.81 TENSION HEADACHE 05/27/2013 CARMEN GIBBS MD 307.81 TENSION HEADACHE 05/27/2013 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, ANSON L 307.81 TENSION HEADACHE 05/27/2013 SUDHIR ROLON DOA K 307.81 TENSION HEADACHE 05/28/2013 YAN CHAPARRO DO Ot 682.6 CELLULITIS OF LEG 05/28/2013 YAN CHAPARRO DO Ot 782.2 LOCAL SUPRFICIAL SWELLNG 05/29/2013 CARMEN GIBBS MD 682.9 CELLULITIS AND ABSCESS OF UNSPECIFIED SITES 05/29/2013 JESSICA JETERS, RAQUEL Galdamez 682.9 CELLULITIS AND ABSCESS OF UNSPECIFIED SITES 05/29/2013 EMIL ROLON DO 682.9 CELLULITIS AND ABSCESS OF UNSPECIFIED SITES 05/29/2013 CARMEN GIBBS MD N 682.9 CELLULITIS AND ABSCESS OF UNSPECIFIED SITES 05/29/2013 CARMEN GIBBS MD 682.9 CELLULITIS AND ABSCESS OF UNSPECIFIED SITES 05/29/2013 OSMAN ALVAREZ APRN 682.9 CELLULITIS AND ABSCESS OF UNSPECIFIED SITES 05/29/2013 EMIL ROLON DO K 682.9 CELLULITIS AND ABSCESS OF UNSPECIFIED SITES 05/29/2013 SUDHIR ROLON DOA K 682.9 CELLULITIS AND ABSCESS OF UNSPECIFIED SITES 05/29/2013 EMIL ROLON DO K 682.9 CELLULITIS AND ABSCESS OF UNSPECIFIED SITES 05/29/2013 OSMAN ALVAREZ APRN 682.9 CELLULITIS AND ABSCESS OF UNSPECIFIED SITES 05/29/2013 SUDHIR ROLON DOA K 682.9 CELLULITIS AND ABSCESS OF UNSPECIFIED SITES 05/29/2013 SUDHIR ROLON DOA K 682.9 CELLULITIS AND ABSCESS OF UNSPECIFIED SITES 05/29/2013 LOBATO TYPO MACHINE OPERATOR, BRENNA R 682.9 CELLULITIS AND ABSCESS OF UNSPECIFIED SITES 05/29/2013 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, ANSON L 682.9 CELLULITIS AND ABSCESS OF UNSPECIFIED SITES 05/29/2013 LOBATO TYPO MACHINE OPERATOR, BRENNA R 682.9 CELLULITIS AND ABSCESS OF UNSPECIFIED SITES 05/29/2013 CARMEN GIBBS MD 682.9 CELLULITIS AND ABSCESS OF UNSPECIFIED SITES 05/29/2013 ROLON DO, EMIL K 682.9 CELLULITIS AND ABSCESS OF UNSPECIFIED SITES 05/29/2013 MICHELINE TYPO MACHINE OPERATOR, RAQUEL R 682.9 CELLULITIS AND ABSCESS OF UNSPECIFIED SITES 05/29/2013 CARMEN GIBBS MD 682.9 CELLULITIS AND ABSCESS OF UNSPECIFIED SITES 05/29/2013 LOBATO TYPO MACHINE OPERATOR, BRENNA R 682.9 CELLULITIS AND ABSCESS OF UNSPECIFIED SITES 05/29/2013 MICHELINE TYPO MACHINE OPERATOR, RAQUEL R 682.9 CELLULITIS AND ABSCESS OF UNSPECIFIED SITES 05/29/2013 CARMEN GIBBS MD N 682.9 CELLULITIS AND ABSCESS OF UNSPECIFIED SITES 05/29/2013 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, ANSON L 682.9 CELLULITIS AND ABSCESS OF UNSPECIFIED SITES 05/29/2013 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, ANSON L 682.9 CELLULITIS AND ABSCESS OF UNSPECIFIED SITES 05/29/2013 MICHELINE TYPO MACHINE OPERATOR, RAQUEL R 682.9 CELLULITIS AND ABSCESS OF UNSPECIFIED SITES 05/29/2013 JOSH JETERS, ELLIOT Alston 682.9 CELLULITIS AND ABSCESS OF UNSPECIFIED SITES 05/29/2013 CARMEN GIBBS MD N 682.9 CELLULITIS AND ABSCESS OF UNSPECIFIED SITES 05/29/2013 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, ANSON L 682.9 CELLULITIS AND ABSCESS OF UNSPECIFIED SITES 05/29/2013 CARMEN GIBBS MD N 682.9 CELLULITIS AND ABSCESS OF UNSPECIFIED SITES 05/29/2013 CARMEN GIBBS MD N 682.9 CELLULITIS AND ABSCESS OF UNSPECIFIED SITES 05/29/2013 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, ANSON L 682.9 CELLULITIS AND ABSCESS OF UNSPECIFIED SITES 05/29/2013 ROLON DO, EMIL K 682.9 CELLULITIS AND ABSCESS OF UNSPECIFIED SITES 05/30/2013 JESSICA JETERS, RAQUEL Galdamez V58.49 WOUND DRAIN CHANGE/REMOVAL AFTER SURGERY 05/30/2013 ROLON , EMIL K V58.49 WOUND DRAIN CHANGE/REMOVAL AFTER SURGERY 05/30/2013 CARMEN GIBBS MD V58.49 WOUND DRAIN CHANGE/REMOVAL AFTER SURGERY 05/30/2013 CARMEN GIBBS MD V58.49 WOUND DRAIN CHANGE/REMOVAL AFTER SURGERY 05/30/2013 OSMAN ALVAREZ APRN V58.49 WOUND DRAIN CHANGE/REMOVAL AFTER SURGERY 05/30/2013 ROLON DO, EMIL K V58.49 WOUND DRAIN CHANGE/REMOVAL AFTER SURGERY 05/30/2013 ROLON DO, EMIL K V58.49 WOUND DRAIN CHANGE/REMOVAL AFTER SURGERY 05/30/2013 GONZALES GAMING, EMIL K V58.49 WOUND DRAIN CHANGE/REMOVAL AFTER SURGERY 05/30/2013 OSMAN ALVAREZ APRN V58.49 WOUND DRAIN CHANGE/REMOVAL AFTER SURGERY 05/30/2013 GONZALES GAMING, EMIL K V58.49 WOUND DRAIN CHANGE/REMOVAL AFTER SURGERY 05/30/2013 GONZALES GAMING, EMIL K V58.49 WOUND DRAIN CHANGE/REMOVAL AFTER SURGERY 05/30/2013 LUIS ALFREDO BAUMANN, BRENNA R V58.49 WOUND DRAIN CHANGE/REMOVAL AFTER SURGERY 05/30/2013 ANSON WADE APRN V58.49 WOUND DRAIN CHANGE/REMOVAL AFTER SURGERY 05/30/2013 BRENNA LOBATO APRN R V58.49 WOUND DRAIN CHANGE/REMOVAL AFTER SURGERY 05/30/2013 CARMEN GIBBS MD V58.49 WOUND DRAIN CHANGE/REMOVAL AFTER SURGERY 05/30/2013 SUDHIR ROLON DOA K V58.49 WOUND DRAIN CHANGE/REMOVAL AFTER SURGERY 05/30/2013 MALACHI TOBIAS APRNINA R V58.49 WOUND DRAIN CHANGE/REMOVAL AFTER SURGERY 05/30/2013 CARMEN GIBBS MD V58.49 WOUND DRAIN CHANGE/REMOVAL AFTER SURGERY 05/30/2013 LUIS ALFREDO BAUMANN, BRENNA R V58.49 WOUND DRAIN CHANGE/REMOVAL AFTER SURGERY 05/30/2013 MICHELINE BAUMANN, RAQUEL R V58.49 WOUND DRAIN CHANGE/REMOVAL AFTER SURGERY 05/30/2013 CARMEN GIBBS MD V58.49 WOUND DRAIN CHANGE/REMOVAL AFTER SURGERY 05/30/2013 CINTHIA WADE APRNWNYA L V58.49 WOUND DRAIN CHANGE/REMOVAL AFTER SURGERY 05/30/2013 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, ANSON L V58.49 WOUND DRAIN CHANGE/REMOVAL AFTER SURGERY 05/30/2013 MICHELINE TYPO MACHINE OPERATOR, RAQUEL R V58.49 WOUND DRAIN CHANGE/REMOVAL AFTER SURGERY 05/30/2013 JOSH JETERS, ELLIOT J V58.49 WOUND DRAIN CHANGE/REMOVAL AFTER SURGERY 05/30/2013 CARMEN GIBBS MD V58.49 WOUND DRAIN CHANGE/REMOVAL AFTER SURGERY 05/30/2013 SHERI TYPO MACHINE OPERATOR, ANSON L V58.49 WOUND DRAIN CHANGE/REMOVAL AFTER SURGERY 05/30/2013 CARMEN GIBBS MD V58.49 WOUND DRAIN CHANGE/REMOVAL AFTER SURGERY 05/30/2013 CARMEN GIBBS MD V58.49 WOUND DRAIN CHANGE/REMOVAL AFTER SURGERY 05/30/2013 SHERI TYPO MACHINE OPERATOR, ANSON L V58.49 WOUND DRAIN CHANGE/REMOVAL AFTER SURGERY 05/30/2013 EMIL ROLON DO V58.49 WOUND DRAIN CHANGE/REMOVAL AFTER SURGERY 05/30/2013 KIARA MORRISON Ot 682.6 CELLULITIS OF LEG 06/04/2013 YAN CHAPARRO DO K Ot 682.6 CELLULITIS OF LEG 06/04/2013 YAN CHAPARRO DO Ot V58.31 ENCOUNTER FOR CHANGE OR REMOVAL OF SURGI 06/05/2013 EMIL ROLON DO 891.0 OPEN WOUND OF KNEE LEG (EXCEPT THIGH) AND ANKLE WITHOUT COMPLICATION 06/05/2013 CARMEN GIBBS MD 891.0 OPEN WOUND OF KNEE LEG (EXCEPT THIGH) AND ANKLE WITHOUT COMPLICATION 06/05/2013 CARMEN GIBBS MD 891.0 OPEN WOUND OF KNEE LEG (EXCEPT THIGH) AND ANKLE WITHOUT COMPLICATION 06/05/2013 OSMAN ALVAREZ APRN 891.0 OPEN WOUND OF KNEE LEG (EXCEPT THIGH) AND ANKLE WITHOUT COMPLICATION 06/05/2013 EMIL ROLON DO 891.0 OPEN WOUND OF KNEE LEG (EXCEPT THIGH) AND ANKLE WITHOUT COMPLICATION 06/05/2013 EMIL ROLON DO 891.0 OPEN WOUND OF KNEE LEG (EXCEPT THIGH) AND ANKLE WITHOUT COMPLICATION 06/05/2013 EMIL ROLON DO 891.0 OPEN WOUND OF KNEE LEG (EXCEPT THIGH) AND ANKLE WITHOUT COMPLICATION 06/05/2013 KIM TYPO MACHINE OPERATOR OSMAN T 891.0 OPEN WOUND OF KNEE LEG (EXCEPT THIGH) AND ANKLE WITHOUT COMPLICATION 06/05/2013 ROLON DO, EMIL K 891.0 OPEN WOUND OF KNEE LEG (EXCEPT THIGH) AND ANKLE WITHOUT COMPLICATION 06/05/2013 ROLON DO, EMIL K 891.0 OPEN WOUND OF KNEE LEG (EXCEPT THIGH) AND ANKLE WITHOUT COMPLICATION 06/05/2013 LOBATO TYPO MACHINE OPERATOR, BRENNA R 891.0 OPEN WOUND OF KNEE LEG (EXCEPT THIGH) AND ANKLE WITHOUT COMPLICATION 06/05/2013 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, ANSON L 891.0 OPEN WOUND OF KNEE LEG (EXCEPT THIGH) AND ANKLE WITHOUT COMPLICATION 06/05/2013 LUIS ALFREDO TYPO MACHINE OPERATOR, BRENNA R 891.0 OPEN WOUND OF KNEE LEG (EXCEPT THIGH) AND ANKLE WITHOUT COMPLICATION 06/05/2013 CARMEN GIBBS MD N 891.0 OPEN WOUND OF KNEE LEG (EXCEPT THIGH) AND ANKLE WITHOUT COMPLICATION 06/05/2013 EMIL ROLON DO K 891.0 OPEN WOUND OF KNEE LEG (EXCEPT THIGH) AND ANKLE WITHOUT COMPLICATION 06/05/2013 MICHELINE TYPO MACHINE OPERATOR, RAQUEL R 891.0 OPEN WOUND OF KNEE LEG (EXCEPT THIGH) AND ANKLE WITHOUT COMPLICATION 06/05/2013 CARMEN GIBBS MD N 891.0 OPEN WOUND OF KNEE LEG (EXCEPT THIGH) AND ANKLE WITHOUT COMPLICATION 06/05/2013 LUIS ALFREDO YUN, BRENNA R 891.0 OPEN WOUND OF KNEE LEG (EXCEPT THIGH) AND ANKLE WITHOUT COMPLICATION 06/05/2013 MICHELINE TYPO MACHINE OPERATOR, RAQUEL R 891.0 OPEN WOUND OF KNEE LEG (EXCEPT THIGH) AND ANKLE WITHOUT COMPLICATION 06/05/2013 CARMEN GIBBS MD N 891.0 OPEN WOUND OF KNEE LEG (EXCEPT THIGH) AND ANKLE WITHOUT COMPLICATION 06/05/2013 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, ANSON L 891.0 OPEN WOUND OF KNEE LEG (EXCEPT THIGH) AND ANKLE WITHOUT COMPLICATION 06/05/2013 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, ANSON L 891.0 OPEN WOUND OF KNEE LEG (EXCEPT THIGH) AND ANKLE WITHOUT COMPLICATION 06/05/2013 MICHELINE TYPO MACHINE OPERATOR, RAQUEL R 891.0 OPEN WOUND OF KNEE LEG (EXCEPT THIGH) AND ANKLE WITHOUT COMPLICATION 06/05/2013 ELLIOT MORENO DDS 891.0 OPEN WOUND OF KNEE LEG (EXCEPT THIGH) AND ANKLE WITHOUT COMPLICATION 06/05/2013 CARMEN GIBBS MD N 891.0 OPEN WOUND OF KNEE LEG (EXCEPT THIGH) AND ANKLE WITHOUT COMPLICATION 06/05/2013 ANSON WADE APRN L 891.0 OPEN WOUND OF KNEE LEG (EXCEPT THIGH) AND ANKLE WITHOUT COMPLICATION 06/05/2013 CARMEN GIBBS MD N 891.0 OPEN WOUND OF KNEE LEG (EXCEPT THIGH) AND ANKLE WITHOUT COMPLICATION 06/05/2013 CARMEN GIBBS MD N 891.0 OPEN WOUND OF KNEE LEG (EXCEPT THIGH) AND ANKLE WITHOUT COMPLICATION 06/05/2013 ANSON WADE APRN L 891.0 OPEN WOUND OF KNEE LEG (EXCEPT THIGH) AND ANKLE WITHOUT COMPLICATION 06/05/2013 EMIL ROLON DO K 891.0 OPEN WOUND OF KNEE LEG (EXCEPT THIGH) AND ANKLE WITHOUT COMPLICATION 06/25/2013 SONAM PARISH, ISSAC Hoff Ot 787.01 NAUSEA WITH VOMITING 06/25/2013 ISSAC MASTERS MD Ot 789.06 ABDOMINAL PAIN, EPIGASTRIC 07/31/2013 LUIS MORENO MD Ot 278.01 MORBID OBESITY 07/31/2013 LUIS MORENO MD Ot 724.2 LUMBAGO 07/31/2013 LUIS MORENO MD Ot 724.79 DISORDER OF COCCYX NEC 07/31/2013 LUIS MORENO MD Ot V58.69 OTH MED,LT,CURRENT USE 07/31/2013 LUIS MORENO MD Ot V85.41 BODY MASS INDEX 40.0-44.9, ADULT 09/03/2013 CARMEN GIBBS MD N 493.92 ASTHMA (ACUTE) EXACERBATION 09/03/2013 OSMAN ALVAREZ APRN 493.92 ASTHMA (ACUTE) EXACERBATION 09/03/2013 EMIL ROLNO DO 493.92 ASTHMA (ACUTE) EXACERBATION 09/03/2013 EMIL ROLON DO 493.92 ASTHMA WITH ACUTE EXACERBATION 09/03/2013 EMIL ROLON DO 493.92 ASTHMA WITH ACUTE EXACERBATION 09/03/2013 OSMAN ALVAREZ APRN 493.92 ASTHMA WITH ACUTE EXACERBATION 09/03/2013 EMIL ROLON DO 493.92 ASTHMA WITH ACUTE EXACERBATION 09/03/2013 EMIL ROLON DO 493.92 ASTHMA WITH ACUTE EXACERBATION 09/03/2013 LOBATO TYPO MACHINE OPERATOR, BRENNA R 493.92 ASTHMA WITH ACUTE EXACERBATION 09/03/2013 SHERI TYPO MACHINE OPERATOR, ANSON L 493.92 ASTHMA WITH ACUTE EXACERBATION 09/03/2013 EMERY LOBATO APRNRICIA R 493.92 ASTHMA WITH ACUTE EXACERBATION 09/03/2013 CARMEN GIBBS MD 493.92 ASTHMA WITH ACUTE EXACERBATION 09/03/2013 ROLON DO EMIL K 493.92 ASTHMA WITH ACUTE EXACERBATION 09/03/2013 MICHELINE BAUMANN RAQUEL R 493.92 ASTHMA WITH ACUTE EXACERBATION 09/03/2013 CARMEN GIBBS MD 493.92 ASTHMA WITH ACUTE EXACERBATION 09/03/2013 BRENNA LOBATO APRN R 493.92 ASTHMA WITH ACUTE EXACERBATION 09/03/2013 MICHELINE BAUMANN RAQUEL R 493.92 ASTHMA WITH ACUTE EXACERBATION 09/03/2013 CARMEN GIBBS MD 493.92 ASTHMA WITH ACUTE EXACERBATION 09/03/2013 ANSON WADE APRN L 493.92 ASTHMA WITH ACUTE EXACERBATION 09/03/2013 LETICIA WADE APRNA L 493.92 ASTHMA WITH ACUTE EXACERBATION 09/03/2013 MALACHI TOBIAS APRNINA R 493.92 ASTHMA WITH ACUTE EXACERBATION 09/03/2013 JOSH JETERS, ELLIOT J 493.92 ASTHMA WITH ACUTE EXACERBATION 09/03/2013 CARMEN GIBBS MD 493.92 ASTHMA WITH ACUTE EXACERBATION 09/03/2013 LETICIA WADE APRNA L 493.92 ASTHMA WITH ACUTE EXACERBATION 09/03/2013 CARMEN GIBBS MD 493.92 ASTHMA WITH ACUTE EXACERBATION 09/03/2013 CARMEN GIBBS MD 493.92 ASTHMA WITH ACUTE EXACERBATION 09/03/2013 SHERI BAUMANN ANSON L 493.92 ASTHMA WITH ACUTE EXACERBATION 09/03/2013 ROLON DO EMIL K 493.92 ASTHMA WITH ACUTE EXACERBATION 09/08/2013 TATA TOMAS MD Ot 724.79 DISORDER OF COCCYX NEC 09/12/2013 OSMAN ALVAREZ APRN 465.9 UPPER RESPIRATORY INFECTION 09/12/2013 ROLON DO EMIL K 465.9 UPPER RESPIRATORY INFECTION 09/12/2013 SUDHIR ROLON DOA K 465.9 UPPER RESPIRATORY INFECTION 09/12/2013 SUDHIR ROLON DOA K 465.9 UPPER RESPIRATORY INFECTION 09/12/2013 OSMAN ALVAREZ APRN 465.9 UPPER RESPIRATORY INFECTION 09/12/2013 ROLON DO, EMIL K 465.9 UPPER RESPIRATORY INFECTION 09/12/2013 ROLON DO, EMIL K 465.9 UPPER RESPIRATORY INFECTION 09/12/2013 LUIS ALFREDO TYPO MACHINE OPERATOR, BRENNA R 465.9 UPPER RESPIRATORY INFECTION 09/12/2013 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, ANSON L 465.9 UPPER RESPIRATORY INFECTION 09/12/2013 LOBATO PASTOR, BRENNA R 465.9 UPPER RESPIRATORY INFECTION 09/12/2013 CARMEN GIBBS MD N 465.9 UPPER RESPIRATORY INFECTION 09/12/2013 ROLON DO, EMIL K 465.9 UPPER RESPIRATORY INFECTION 09/12/2013 MICHELINE BAUMANN, RAQUEL R 465.9 UPPER RESPIRATORY INFECTION 09/12/2013 CARMEN GIBBS MD 465.9 UPPER RESPIRATORY INFECTION 09/12/2013 CRISTINO LOBATO APRNIA R 465.9 UPPER RESPIRATORY INFECTION 09/12/2013 MICHELINE BAUMANN, RAQUEL R 465.9 UPPER RESPIRATORY INFECTION 09/12/2013 CARMEN GIBBS MD N 465.9 UPPER RESPIRATORY INFECTION 09/12/2013 SHERI TYPO MACHINE OPERATOR, ANSON L 465.9 UPPER RESPIRATORY INFECTION 09/12/2013 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, ANSON L 465.9 UPPER RESPIRATORY INFECTION 09/12/2013 MICHELINE YUN, RAQUEL R 465.9 UPPER RESPIRATORY INFECTION 09/12/2013 JOSH VILLAVICENCIO, ELLIOT Alston 465.9 UPPER RESPIRATORY INFECTION 09/12/2013 CARMEN GIBBS MD N 465.9 UPPER RESPIRATORY INFECTION 09/12/2013 SHERI BAUMANN, ANSON L 465.9 UPPER RESPIRATORY INFECTION 09/12/2013 CARMEN GIBBS MD N 465.9 UPPER RESPIRATORY INFECTION 09/12/2013 CARMEN GIBBS MD N 465.9 UPPER RESPIRATORY INFECTION 09/12/2013 SHERI BAUMANN, ANSON L 465.9 UPPER RESPIRATORY INFECTION 09/12/2013 ROLON DO EMIL K 465.9 UPPER RESPIRATORY INFECTION 09/16/2013 ROLON DO EMIL K 381.02 ACUTE MUCOID OTITIS MEDIA 09/16/2013 ROLON DO, EMIL K 381.02 OTITIS MEDIA ACUTE MUCOID LEFT EAR 09/16/2013 ROLON DO EMIL K 381.02 OTITIS MEDIA ACUTE MUCOID LEFT EAR 09/16/2013 OSMAN ALVAREZ APRN 381.02 OTITIS MEDIA ACUTE MUCOID LEFT EAR 09/16/2013 EMIL ROLON DO K 381.02 OTITIS MEDIA ACUTE MUCOID LEFT EAR 09/16/2013 EMIL ROLON DO K 381.02 OTITIS MEDIA ACUTE MUCOID LEFT EAR 09/16/2013 EMERY LOBATO APRNRICIA R 381.02 OTITIS MEDIA ACUTE MUCOID LEFT EAR 09/16/2013 JOSE FRANCISCOL TYPO MACHINE OPERATOR, ANSON L 381.02 OTITIS MEDIA ACUTE MUCOID LEFT EAR 09/16/2013 CRISTINO LOBATO APRNIA R 381.02 OTITIS MEDIA ACUTE MUCOID LEFT EAR 09/16/2013 CARMEN GIBBS MD 381.02 OTITIS MEDIA ACUTE MUCOID LEFT EAR 09/16/2013 EMIL ROLON DO K 381.02 OTITIS MEDIA ACUTE MUCOID LEFT EAR 09/16/2013 MICHELINE BAUMANN RAQUEL R 381.02 OTITIS MEDIA ACUTE MUCOID LEFT EAR 09/16/2013 CARMEN GIBBS MD 381.02 OTITIS MEDIA ACUTE MUCOID LEFT EAR 09/16/2013 BRENNA LOBATO APRN R 381.02 OTITIS MEDIA ACUTE MUCOID LEFT EAR 09/16/2013 MICHELINE BAUMANN RAQUEL R 381.02 OTITIS MEDIA ACUTE MUCOID LEFT EAR 09/16/2013 CARMEN GIBBS MD 381.02 OTITIS MEDIA ACUTE MUCOID LEFT EAR 09/16/2013 LETICIA WADE APRNA L 381.02 OTITIS MEDIA ACUTE MUCOID LEFT EAR 09/16/2013 LETICIA WADE APRNA L 381.02 OTITIS MEDIA ACUTE MUCOID LEFT EAR 09/16/2013 MICHELINE BAUMANN RAQUEL R 381.02 OTITIS MEDIA ACUTE MUCOID LEFT EAR 09/16/2013 JOSH JETERS, ELLIOT Alston 381.02 OTITIS MEDIA ACUTE MUCOID LEFT EAR 09/16/2013 CARMEN GIBBS MD 381.02 OTITIS MEDIA ACUTE MUCOID LEFT EAR 09/16/2013 SHERI BAUMANN, ANSON L 381.02 OTITIS MEDIA ACUTE MUCOID LEFT EAR 09/16/2013 CARMEN GIBBS MD 381.02 OTITIS MEDIA ACUTE MUCOID LEFT EAR 09/16/2013 CARMEN GIBBS MD 381.02 OTITIS MEDIA ACUTE MUCOID LEFT EAR 09/16/2013 SHERI BAUMANN, ANSON L 381.02 OTITIS MEDIA ACUTE MUCOID LEFT EAR 09/16/2013 EMIL ROLON DO K 381.02 OTITIS MEDIA ACUTE MUCOID LEFT EAR 09/21/2013 ROLON DO, EMIL K 625.8 OTHER SPECIFIED SYMPTOMS ASSOCIATED WITH FEMALE GENITAL ORGANS 09/21/2013 OSMAN ALVAREZ APRN 625.8 OTHER SPECIFIED SYMPTOMS ASSOCIATED WITH FEMALE GENITAL ORGANS 09/21/2013 ROLON DO, EMIL K 625.8 OTHER SPECIFIED SYMPTOMS ASSOCIATED WITH FEMALE GENITAL ORGANS 09/21/2013 ROLON DO, EMIL K 625.8 OTHER SPECIFIED SYMPTOMS ASSOCIATED WITH FEMALE GENITAL ORGANS 09/21/2013 CRISTINO LOBATO APRNIA R 625.8 OTHER SPECIFIED SYMPTOMS ASSOCIATED WITH FEMALE GENITAL ORGANS 09/21/2013 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, ANSON L 625.8 OTHER SPECIFIED SYMPTOMS ASSOCIATED WITH FEMALE GENITAL ORGANS 09/21/2013 CRISTINO LOBATO APRNIA R 625.8 OTHER SPECIFIED SYMPTOMS ASSOCIATED WITH FEMALE GENITAL ORGANS 09/21/2013 CARMEN GIBBS MD 625.8 OTHER SPECIFIED SYMPTOMS ASSOCIATED WITH FEMALE GENITAL ORGANS 09/21/2013 ROLON DO, EMIL K 625.8 OTHER SPECIFIED SYMPTOMS ASSOCIATED WITH FEMALE GENITAL ORGANS 09/21/2013 MALACHI TOBIAS APRNINA R 625.8 OTHER SPECIFIED SYMPTOMS ASSOCIATED WITH FEMALE GENITAL ORGANS 09/21/2013 CARMEN GIBBS MD 625.8 OTHER SPECIFIED SYMPTOMS ASSOCIATED WITH FEMALE GENITAL ORGANS 09/21/2013 BRENNA LOBATO APRN R 625.8 OTHER SPECIFIED SYMPTOMS ASSOCIATED WITH FEMALE GENITAL ORGANS 09/21/2013 MALACHI TOBIAS APRNINA R 625.8 OTHER SPECIFIED SYMPTOMS ASSOCIATED WITH FEMALE GENITAL ORGANS 09/21/2013 CARMEN GIBBS MD 625.8 OTHER SPECIFIED SYMPTOMS ASSOCIATED WITH FEMALE GENITAL ORGANS 09/21/2013 LETICIA WADE APRNA L 625.8 OTHER SPECIFIED SYMPTOMS ASSOCIATED WITH FEMALE GENITAL ORGANS 09/21/2013 LETICIA WADE APRNA L 625.8 OTHER SPECIFIED SYMPTOMS ASSOCIATED WITH FEMALE GENITAL ORGANS 09/21/2013 MALACHI TOBIAS APRNINA R 625.8 OTHER SPECIFIED SYMPTOMS ASSOCIATED WITH FEMALE GENITAL ORGANS 09/21/2013 ELLIOT MORENO DDS 625.8 OTHER SPECIFIED SYMPTOMS ASSOCIATED WITH FEMALE GENITAL ORGANS 09/21/2013 CARMEN GIBBS MD 625.8 OTHER SPECIFIED SYMPTOMS ASSOCIATED WITH FEMALE GENITAL ORGANS 09/21/2013 LETICIA WADE APRNA L 625.8 OTHER SPECIFIED SYMPTOMS ASSOCIATED WITH FEMALE GENITAL ORGANS 09/21/2013 CARMEN GIBBS MD 625.8 OTHER SPECIFIED SYMPTOMS ASSOCIATED WITH FEMALE GENITAL ORGANS 09/21/2013 CARMEN GIBBS MD 625.8 OTHER SPECIFIED SYMPTOMS ASSOCIATED WITH FEMALE GENITAL ORGANS 09/21/2013 ANSON WADE APRN L 625.8 OTHER SPECIFIED SYMPTOMS ASSOCIATED WITH FEMALE GENITAL ORGANS 09/21/2013 ROLON DOSUDHIRA K 625.8 OTHER SPECIFIED SYMPTOMS ASSOCIATED WITH FEMALE GENITAL ORGANS 09/23/2013 ROLON DOSUDHIRA K 719.42 PAIN IN JOINT INVOLVING UPPER ARM 09/23/2013 OSMAN ALVAREZ APRN 719.42 PAIN IN JOINT INVOLVING UPPER ARM 09/23/2013 ROLON DOSUDHIRA K 719.42 PAIN IN JOINT INVOLVING UPPER ARM 09/23/2013 ROLON DOSUDHIRA K 719.42 PAIN IN JOINT INVOLVING UPPER ARM 09/23/2013 BRENNA LOBATO APRN R 719.42 PAIN IN JOINT INVOLVING UPPER ARM 09/23/2013 ANSON WADE APRN L 719.42 PAIN IN JOINT INVOLVING UPPER ARM 09/23/2013 BRENNA LOBATO APRN R 719.42 PAIN IN JOINT INVOLVING UPPER ARM 09/23/2013 CARMEN GIBBS MD 719.42 PAIN IN JOINT INVOLVING UPPER ARM 09/23/2013 EMIL ROLON DO K 719.42 PAIN IN JOINT INVOLVING UPPER ARM 09/23/2013 RAQUEL TOBIAS APRN R 719.42 PAIN IN JOINT INVOLVING UPPER ARM 09/23/2013 CARMEN GIBBS MD 719.42 PAIN IN JOINT INVOLVING UPPER ARM 09/23/2013 BRENNA LOBATO APRN R 719.42 PAIN IN JOINT INVOLVING UPPER ARM 09/23/2013 RAQUEL TOBIAS APRN R 719.42 PAIN IN JOINT INVOLVING UPPER ARM 09/23/2013 CARMEN GIBBS MD 719.42 PAIN IN JOINT INVOLVING UPPER ARM 09/23/2013 ANSON WADE APRN L 719.42 PAIN IN JOINT INVOLVING UPPER ARM 09/23/2013 ANSON WADE APRN L 719.42 PAIN IN JOINT INVOLVING UPPER ARM 09/23/2013 RAQUEL TOBIAS APRN R 719.42 PAIN IN JOINT INVOLVING UPPER ARM 09/23/2013 ELLIOT MORENO DDS 719.42 PAIN IN JOINT INVOLVING UPPER ARM 09/23/2013 CARMEN GIBBS MD 719.42 PAIN IN JOINT INVOLVING UPPER ARM 09/23/2013 ANSON WADE APRN 719.42 PAIN IN JOINT INVOLVING UPPER ARM 09/23/2013 CARMEN GIBBS MD 719.42 PAIN IN JOINT INVOLVING UPPER ARM 09/23/2013 CARMEN GIBBS MD 719.42 PAIN IN JOINT INVOLVING UPPER ARM 09/23/2013 ANSON WADE APRN 719.42 PAIN IN JOINT INVOLVING UPPER ARM 09/23/2013 EMIL ROLON DO 719.42 PAIN IN JOINT INVOLVING UPPER ARM 09/28/2013 OSMAN ALVAREZ APRN 727.49 OTHER GANGLION AND CYST OF SYNOVIUM TENDON AND BURSA 09/28/2013 EMIL ROLON DO K 727.49 OTHER GANGLION AND CYST OF SYNOVIUM TENDON AND BURSA 09/28/2013 EMIL ROLON DO K 727.49 OTHER GANGLION AND CYST OF SYNOVIUM TENDON AND BURSA 09/28/2013 BRENNA LOBATO APRN R 727.49 OTHER GANGLION AND CYST OF SYNOVIUM TENDON AND BURSA 09/28/2013 ANSON WADE APRN 727.49 OTHER GANGLION AND CYST OF SYNOVIUM TENDON AND BURSA 09/28/2013 BRENNA LOBATO APRN R 727.49 OTHER GANGLION AND CYST OF SYNOVIUM TENDON AND BURSA 09/28/2013 CARMEN GIBBS MD N 727.49 OTHER GANGLION AND CYST OF SYNOVIUM TENDON AND BURSA 09/28/2013 EMIL ROLON DO K 727.49 OTHER GANGLION AND CYST OF SYNOVIUM TENDON AND BURSA 09/28/2013 RAQUEL TOBIAS APRN R 727.49 OTHER GANGLION AND CYST OF SYNOVIUM TENDON AND BURSA 09/28/2013 CARMEN GIBBS MD N 727.49 OTHER GANGLION AND CYST OF SYNOVIUM TENDON AND BURSA 09/28/2013 BRENNA LOBATO APRN R 727.49 OTHER GANGLION AND CYST OF SYNOVIUM TENDON AND BURSA 09/28/2013 RAQUEL TOBIAS APRN R 727.49 OTHER GANGLION AND CYST OF SYNOVIUM TENDON AND BURSA 09/28/2013 CARMEN GIBBS MD N 727.49 OTHER GANGLION AND CYST OF SYNOVIUM TENDON AND BURSA 09/28/2013 ANSON WADE APRN 727.49 OTHER GANGLION AND CYST OF SYNOVIUM TENDON AND BURSA 09/28/2013 ANSON WADE APRN L 727.49 OTHER GANGLION AND CYST OF SYNOVIUM TENDON AND BURSA 09/28/2013 RAQUEL TOBIAS APRN R 727.49 OTHER GANGLION AND CYST OF SYNOVIUM TENDON AND BURSA 09/28/2013 JOSH JETERS, ELLIOT [place] 727.49 OTHER GANGLION AND CYST OF SYNOVIUM TENDON AND BURSA 09/28/2013 CARMEN GIBBS MD N 727.49 OTHER GANGLION AND CYST OF SYNOVIUM TENDON AND BURSA 09/28/2013 ANSON WADE APRN L 727.49 OTHER GANGLION AND CYST OF SYNOVIUM TENDON AND BURSA 09/28/2013 CARMEN GIBBS MD N 727.49 OTHER GANGLION AND CYST OF SYNOVIUM TENDON AND BURSA 09/28/2013 CARMEN GIBBS MD N 727.49 OTHER GANGLION AND CYST OF SYNOVIUM TENDON AND BURSA 09/28/2013 ANSON WADE APRN L 727.49 OTHER GANGLION AND CYST OF SYNOVIUM TENDON AND BURSA 09/28/2013 EMIL ROLON DO 727.49 OTHER GANGLION AND CYST OF SYNOVIUM TENDON AND BURSA 10/06/2013 KIARA MORRISON Ot 535.50 UNSP GASTRITIS GASTRODUODENITIS W/O ME 10/06/2013 KIARA MORRISON Ot 789.06 ABDOMINAL PAIN, EPIGASTRIC 10/24/2013 BRENNA LOBATO APRN R 110.1 DERMATOPHYTOSIS OF NAIL 10/24/2013 ANSON WADE APRN L 110.1 DERMATOPHYTOSIS OF NAIL 10/24/2013 BRENNA LOBATO APRN R 110.1 DERMATOPHYTOSIS OF NAIL 10/24/2013 CARMEN GIBBS MD N 110.1 DERMATOPHYTOSIS OF NAIL 10/24/2013 EMIL ROLON DO K 110.1 DERMATOPHYTOSIS OF NAIL 10/24/2013 RAQUEL TOBIAS APRN R 110.1 DERMATOPHYTOSIS OF NAIL 10/24/2013 CARMEN GIBBS MD N 110.1 DERMATOPHYTOSIS OF NAIL 10/24/2013 BRENNA LOBATO APRN R 110.1 DERMATOPHYTOSIS OF NAIL 10/24/2013 RAQUEL TOBIAS APRN R 110.1 DERMATOPHYTOSIS OF NAIL 10/24/2013 CARMEN GIBBS MD N 110.1 DERMATOPHYTOSIS OF NAIL 10/24/2013 ANSON WADE APRN L 110.1 DERMATOPHYTOSIS OF NAIL 10/24/2013 ANSON WADE APRN L 110.1 DERMATOPHYTOSIS OF NAIL 10/24/2013 RAQUEL TOBIAS APRN R 110.1 DERMATOPHYTOSIS OF NAIL 10/24/2013 ELLIOT MORENO DDS 110.1 DERMATOPHYTOSIS OF NAIL 10/24/2013 CARMEN GIBBS MD N 110.1 DERMATOPHYTOSIS OF NAIL 10/24/2013 ANSON WADE APRN L 110.1 DERMATOPHYTOSIS OF NAIL 10/24/2013 CARMEN GIBBS MD N 110.1 DERMATOPHYTOSIS OF NAIL 10/24/2013 CARMEN GIBBS MD N 110.1 DERMATOPHYTOSIS OF NAIL 10/24/2013 ANSON WADE APRN L 110.1 DERMATOPHYTOSIS OF NAIL 10/24/2013 EMIL ROLON DO K 110.1 DERMATOPHYTOSIS OF NAIL 10/28/2013 BRENNA LOBATO APRN R 787.02 NAUSEA ALONE 10/28/2013 ANSON WADE APRN 787.02 NAUSEA ALONE 10/28/2013 BRENNA LOBATO APRN R 787.02 NAUSEA ALONE 10/28/2013 CARMEN GIBBS MD N 787.02 NAUSEA ALONE 10/28/2013 EMIL ROLNO DO K 787.02 NAUSEA ALONE 10/28/2013 RAQUEL TOBIAS APRN R 787.02 NAUSEA ALONE 10/28/2013 CARMEN GIBBS MD N 787.02 NAUSEA ALONE 10/28/2013 BRENNA LOBATO APRN R 787.02 NAUSEA ALONE 10/28/2013 RAQUEL TOBIAS APRN R 787.02 NAUSEA ALONE 10/28/2013 CARMEN GIBBS MD N 787.02 NAUSEA ALONE 10/28/2013 ANSON WADE APRN 787.02 NAUSEA ALONE 10/28/2013 ANSON WADE APRN 787.02 NAUSEA ALONE 10/28/2013 RAQUEL TOBIAS APRN R 787.02 NAUSEA ALONE 10/28/2013 WHITE DDS, ELLIOT J 787.02 NAUSEA ALONE 10/28/2013 CARMEN GIBBS MD N 787.02 NAUSEA ALONE 10/28/2013 ANSON WADE APRN L 787.02 NAUSEA ALONE 10/28/2013 CAREMN GIBBS MD N 787.02 NAUSEA ALONE 10/28/2013 CARMEN GIBBS MD N 787.02 NAUSEA ALONE 10/28/2013 ASNON WADE APRN L 787.02 NAUSEA ALONE 10/28/2013 ROLON DO EMIL K 787.02 NAUSEA ALONE 10/29/2013 SHANKAR DO, YAN K Ot 787.01 NAUSEA WITH VOMITING 10/29/2013 SHANKAR DO, YAN K Ot 790.5 ABN SERUM ENZY LEVEL NEC 10/29/2013 SHANKAR , YAN K Ot V58.69 OT MED,LT,CURRENT USE 11/03/2013 ANSON WADE APRN L 790.6 OTHER ABNORMAL BLOOD CHEMISTRY 11/03/2013 BRENNA LOBATO APRN R 790.6 OTHER ABNORMAL BLOOD CHEMISTRY 11/03/2013 CARMEN GIBBS MD N 790.6 OTHER ABNORMAL BLOOD CHEMISTRY 11/03/2013 ROLON DO EMIL K 790.6 OTHER ABNORMAL BLOOD CHEMISTRY 11/03/2013 RAQUEL TOBIAS APRN R 790.6 OTHER ABNORMAL BLOOD CHEMISTRY 11/03/2013 CARMEN GIBBS MD N 790.6 OTHER ABNORMAL BLOOD CHEMISTRY 11/03/2013 BRENNA LOBATO APRN R 790.6 OTHER ABNORMAL BLOOD CHEMISTRY 11/03/2013 RAQUEL TOBIAS APRN R 790.6 OTHER ABNORMAL BLOOD CHEMISTRY 11/03/2013 CARMEN GIBBS MD N 790.6 OTHER ABNORMAL BLOOD CHEMISTRY 11/03/2013 ANSON WADE APRN L 790.6 OTHER ABNORMAL BLOOD CHEMISTRY 11/03/2013 ANSON WADE APRN L 790.6 OTHER ABNORMAL BLOOD CHEMISTRY 11/03/2013 RAQUEL TOBIAS APRN R 790.6 OTHER ABNORMAL BLOOD CHEMISTRY 11/03/2013 WHITE STEFFANYS, ELLIOT J 790.6 OTHER ABNORMAL BLOOD CHEMISTRY 11/03/2013 CARMEN GIBBS MD N 790.6 OTHER ABNORMAL BLOOD CHEMISTRY 11/03/2013 ANSON WADE APRN L 790.6 OTHER ABNORMAL BLOOD CHEMISTRY 11/03/2013 CARMEN GIBBS MD 790.6 OTHER ABNORMAL BLOOD CHEMISTRY 11/03/2013 CARMEN GIBBS MD 790.6 OTHER ABNORMAL BLOOD CHEMISTRY 11/03/2013 ANSON WADE APRN L 790.6 OTHER ABNORMAL BLOOD CHEMISTRY 11/03/2013 ROLON SUDHIR GAMINGA K 790.6 OTHER ABNORMAL BLOOD CHEMISTRY 11/20/2013 GEORGES FINN APRN Ot 724.79 DISORDER OF COCCYX NEC 01/19/2014 YAN CHAPARRO DO K Ot 300.00 ANXIETY STATE NOS 01/19/2014 SHANKAR RONNI GAMINGA K Ot 311 DEPRESSIVE DISORDER NEC 01/19/2014 RONNI CHAPARRO DOA K Ot 346.90 MIGRAINE UNSPECIFIED W/O INTRACT MGRN W/ 01/19/2014 YAN CHAPARRO DO K Ot 493.90 ASTHMA, UNSPECIFIED 01/19/2014 YAN CHAPARRO DO K Ot 599.0 URIN TRACT INFECTION NOS 01/19/2014 YAN CHAPARRO DO K Ot 724.2 LUMBAGO 01/21/2014 EMIL ROLON DO K 787.01 NAUSEA WITH VOMITING 01/21/2014 RAQUEL TOBIAS APRN R 787.01 NAUSEA WITH VOMITING 01/21/2014 CARMEN GIBBS MD 787.01 NAUSEA WITH VOMITING 01/21/2014 BRENNA LOBATO APRN R 787.01 NAUSEA WITH VOMITING 01/21/2014 RAQUEL TOBIAS APRN R 787.01 NAUSEA WITH VOMITING 01/21/2014 CARMEN GIBBS MD 787.01 NAUSEA WITH VOMITING 01/21/2014 ANSON WADE APRN L 787.01 NAUSEA WITH VOMITING 01/21/2014 ANSON WADE APRN L 787.01 NAUSEA WITH VOMITING 01/21/2014 MALACHI TOBIAS APRNINA R 787.01 NAUSEA WITH VOMITING 01/21/2014 ELLIOT MORENO DDS 787.01 NAUSEA WITH VOMITING 01/21/2014 CARMEN GIBBS MD 787.01 NAUSEA WITH VOMITING 01/21/2014 ANSON WADE APRN L 787.01 NAUSEA WITH VOMITING 01/21/2014 SAI MD, CARMEN N 787.01 NAUSEA WITH VOMITING 01/21/2014 CARMEN GIBBS MD 787.01 NAUSEA WITH VOMITING 01/21/2014 ANSON WADE APRN L 787.01 NAUSEA WITH VOMITING 01/21/2014 EMIL ROLON DO K 787.01 NAUSEA WITH VOMITING 02/05/2014 CARMEN GIBBS MD N 706.1 OTHER ACNE 02/05/2014 BRENNA LOBATO APRN R 706.1 OTHER ACNE 02/05/2014 MALACHI TOBIAS APRNINA R 706.1 OTHER ACNE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 Ot 723.0 CERVICAL SPINAL STENOSIS 08/05/2016 DEE BAH MD Ot 724.02 SPINAL STENOSIS, LUMBAR REG, W/OUT NEURO 08/05/2016 ROCHELLE CANNON MD, Ot M77.8 OTHER ENTHESOPATHIES, NOT ELSEWHERE CLAS 08/05/2016 ROCHELLE CANNON MD, Ot M23.8X1 OTHER INTERNAL DERANGEMENTS OF RIGHT KNE 08/05/2016 ROCHELLE CANNON MD, Ot Z01.818 ENCOUNTER FOR OTHER PREPROCEDURAL EXAMIN 08/05/2016 ROCHELLE CANNON MD, Ot Z11.2 ENCOUNTER FOR SCREENING FOR OTHER BACTER 08/05/2016 CARMEN GIBBS MD, Ot E78.2 MIXED HYPERLIPIDEMIA 08/05/2016 ROCHELLE CANNON MD, Ot S83.241S OTH TEAR OF MEDIAL MENISCUS, CURRENT INJ 08/05/2016 ROCHELLE CANNON MD, Ot X58.XXXS EXPOSURE TO OTHER SPECIFIED FACTORS, SEQ 08/05/2016 ROCHELLE CANNON MD, Ot Y99.8 OTHER EXTERNAL CAUSE STATUS 08/05/2016 ROCHELLE CANNON MD, Ot M79.604 PAIN IN RIGHT LEG 08/05/2016 ROCHELLE CANNON MD, Ot M25.461 EFFUSION, RIGHT KNEE 08/05/2016 ROCHELLE CANNON MD, Ot S83.241A OTH TEAR OF MEDIAL MENISCUS, CURRENT INJ 08/05/2016 KIARA MORRISON Ot R10.10 UPPER ABDOMINAL PAIN, UNSPECIFIED 08/05/2016 KIARA MORRISON Ot R11.2 NAUSEA WITH VOMITING, UNSPECIFIED 08/16/2016 CARMEN GIBBS MD Ot R04.2 HEMOPTYSIS 08/28/2016 CARMEN GIBBS MD, Ot R22.1 LOCALIZED SWELLING, MASS AND LUMP, NECK 08/28/2016 CARMEN GIBBS MD Ot R22.1 LOCALIZED SWELLING, MASS AND LUMP, NECK 08/29/2016 CARMEN GIBBS MD, Ot R22.1 LOCALIZED SWELLING, MASS AND LUMP, NECK 09/03/2016 CARMEN GIBBS MD N Ot R22.1 LOCALIZED SWELLING, MASS AND LUMP, NECK 09/06/2016 CARMEN GIBBS MD N Ot R04.2 HEMOPTYSIS 09/12/2016 CARMEN GIBBS MD N Ot R04.2 HEMOPTYSIS 09/14/2016 CARMEN GIBBS MD N Ot R04.2 HEMOPTYSIS 09/14/2016 CARMEN GIBBS MD N Ot R22.1 LOCALIZED SWELLING, MASS AND LUMP, NECK 09/18/2016 CARMEN GIBBS MD N Ot R22.1 LOCALIZED SWELLING, MASS AND LUMP, NECK 09/26/2016 CARMEN GIBBS MD N Ot R22.1 LOCALIZED SWELLING, MASS AND LUMP, NECK 10/04/2016 CARMEN GIBBS MD N Ot R04.2 HEMOPTYSIS 10/04/2016 CARMEN GIBBS MD N Ot R22.1 LOCALIZED SWELLING, MASS AND LUMP, NECK 10/05/2016 CARMEN GIBBS MD N Ot R04.2 HEMOPTYSIS 10/05/2016 CARMEN GIBBS MD N Ot R22.1 LOCALIZED SWELLING, MASS AND LUMP, NECK 10/09/2016 CARMEN GIBBS MD N Ot R04.2 HEMOPTYSIS 10/09/2016 CARMEN GIBBS MD N Ot R22.1 LOCALIZED SWELLING, MASS AND LUMP, NECK 10/11/2016 DAVID, GEOVANI LIAISON OFFICER Ot R05 COUGH 10/11/2016 DAVID, GEOVANI LIAISON OFFICER Ot R10.12 LEFT UPPER QUADRANT PAIN 10/11/2016 DAVID, GEOVANI LIAISON OFFICER Ot Z87.19 PERSONAL HISTORY OF OTHER DISEASES OF 10/12/2016 DAVID, GEOVANI LIAISON OFFICER Ot R05 COUGH 10/12/2016 DAVID, GEOVANI LIAISON OFFICER Ot R10.12 LEFT UPPER QUADRANT PAIN 10/12/2016 DAVID, GEOVANI LIAISON OFFICER Ot Z87.19 PERSONAL HISTORY OF OTHER DISEASES OF 10/26/2016 Ot 786.50 CHEST PAIN NOS 10/26/2016 Ot 625.9 FEM GENITAL SYMPTOMS NOS 10/26/2016 Ot 626.8 MENSTRUAL DISORDER NEC 10/26/2016 Ot 786.50 CHEST PAIN NOS 10/26/2016 Ot 564.00 UNSPEC CONSTIPATION 10/26/2016 Ot 787.01 NAUSEA WITH VOMITING 10/26/2016 Ot 620.2 OVARIAN CYST NEC/NOS 10/26/2016 Ot 789.00 ABDOMINAL PAIN, UNSPECIFIED SITE 10/26/2016 Ot V72.63 PRE- PROCEDURAL LABORATORY EXAMINATION 10/26/2016 Ot V74.8 SCREEN- BACTERIAL DIS NEC 10/26/2016 LUIS MORENO MD Ot 278.00 OBESITY, NOS 10/26/2016 LUIS MORENO MD Ot 311 DEPRESSIVE DISORDER NEC 10/26/2016 LUIS MORENO MD Ot 493.00 EXTRINSIC ASTHMA, NOS 10/26/2016 LUIS MORENO MD Ot 724.79 DISORDER OF COCCYX NEC 10/26/2016 LUIS MORENO MD Ot V58.69 OTH MED,LT,CURRENT USE 10/26/2016 LUIS MORENO MD Ot V85.41 BODY MASS INDEX 40.0-44.9, ADULT 10/26/2016 RONY ALDANA TYPO MACHINE OPERATOR Ot 571.8 CHRONIC LIVER DIS NEC 10/26/2016 TATA TOMAS MD Ot 724.70 DISORDER OF COCCYX NOS 10/26/2016 TATA TOMAS MD Ot V72.63 PRE-PROCEDURAL LABORATORY EXAMINATION 10/26/2016 TATA TOMAS MD Ot V74.8 SCREEN-BACTERIAL DIS NEC 10/26/2016 LAZARO HURTADO LIAISON OFFICER Ot 278.01 MORBID OBESITY 10/26/2016 LAZARO HURTADO LIAISON OFFICER Ot 401.9 HYPERTENSION NOS 10/26/2016 LAZARO HURTADO LIAISON OFFICER Ot 786.09 RESPIRATORY ABNORM NEC 10/26/2016 LAZARO HURTADO LIAISON OFFICER Ot V85.42 BODY MASS INDEX 45.0-49.9, ADULT 10/26/2016 DEE BAH MD Ot 723.0 CERVICAL SPINAL STENOSIS 10/26/2016 DEE BAH MD Ot 724.02 SPINAL STENOSIS, LUMBAR REG, W/OUT NEURO 10/26/2016 ROCHELLE CANNON MD Ot M77.8 OTHER ENTHESOPATHIES, NOT ELSEWHERE CLAS 10/26/2016 ROCHELLE CANNON MD, Ot M23.8X1 OTHER INTERNAL DERANGEMENTS OF RIGHT KNE 10/26/2016 ROCHELLE CANNON MD, Ot Z01.818 ENCOUNTER FOR OTHER PREPROCEDURAL EXAMIN 10/26/2016 ROCHELLE CANNON MD, Ot Z11.2 ENCOUNTER FOR SCREENING FOR OTHER BACTER 10/26/2016 CARMEN GIBBS MD Ot E78.2 MIXED HYPERLIPIDEMIA 10/26/2016 ROCHELLE CANNON MD, Ot S83.241S OTH TEAR OF MEDIAL MENISCUS, CURRENT INJ 10/26/2016 ROCHELLE CANNON MD, Ot X58.XXXS EXPOSURE TO OTHER SPECIFIED FACTORS, SEQ 10/26/2016 ROCHELLE CANNON MD, Ot Y99.8 OTHER EXTERNAL CAUSE STATUS 10/26/2016 ROCHELLE CANNON MD, Ot M79.604 PAIN IN RIGHT LEG 10/26/2016 ROCHELLE CANNON MD, Ot M25.461 EFFUSION, RIGHT KNEE 10/26/2016 ROCHELLE CANNON MD, Ot S83.241A OTH TEAR OF MEDIAL MENISCUS, CURRENT INJ 10/26/2016 CARMEN GIBBS MD Ot R04.2 HEMOPTYSIS 10/26/2016 CARMEN GIBBS MD Ot R22.1 LOCALIZED SWELLING, MASS AND LUMP, NECK 10/26/2016 CARMEN GIBBS MD Ot R22.1 LOCALIZED SWELLING, MASS AND LUMP, NECK 10/26/2016 KIARA MORRISON Ot N76.2 ACUTE VULVITIS 10/26/2016 KIARA MORRISON Ot N76.4 ABSCESS OF VULVA 11/15/2016 KIARA MORRISON Ot N76.2 ACUTE VULVITIS 11/15/2016 KIARA MORRISON Ot N76.4 ABSCESS OF VULVA 11/21/2016 KIARA MORRISON Ot N76.2 ACUTE VULVITIS 11/21/2016 KIARA MORRISON Ot N76.4 ABSCESS OF VULVA 12/01/2016 ADRIÁN PARKS MD Ot J02.9 ACUTE PHARYNGITIS, UNSPECIFIED 12/01/2016 ADRIÁN PARKS MD Ot J45.909 UNSPECIFIED ASTHMA, UNCOMPLICATED 12/04/2016 ADRIÁN PARKS MD Ot J02.9 ACUTE PHARYNGITIS, UNSPECIFIED 12/04/2016 ADRIÁN PARKS MD Ot J45.909 UNSPECIFIED ASTHMA, UNCOMPLICATED 12/15/2016 GEORGES FINN APRN Ot L98.9 DISORDER OF THE SKIN AND SUBCUTANEOUS TI 01/15/2017 GEORGES FINN APRN Ot L98.9 DISORDER OF THE SKIN AND SUBCUTANEOUS TI 01/31/2017 YAN CHAPARRO DO Vickey Ot F32.9 MAJOR DEPRESSIVE DISORDER, SINGLE EPISOD 01/31/2017 SHANKAR GAMING YAN Hurd Ot F41.9 ANXIETY DISORDER, UNSPECIFIED 01/31/2017 YAN CHAPARRO DO Ot G43.909 MIGRAINE, UNSP, NOT INTRACTABLE, WITHOUT 01/31/2017 SHANKAR GAMING YAN Vickey Ot J39.2 OTHER DISEASES OF PHARYNX 01/31/2017 SHANKAR GAMING YAN Vickey Ot J45.909 UNSPECIFIED ASTHMA, UNCOMPLICATED 01/31/2017 SHANKAR GAMING YAN Vickey Ot Z82.49 FAMILY HX OF ISCHEM HEART DIS AND OTH DI 01/31/2017 SHANKAR DO YAN Vickey Ot Z86.010 PERSONAL HISTORY OF COLONIC POLYPS 01/31/2017 SHANKAR YAN K Ot Z86.19 PERSONAL HISTORY OF OTHER INFECTIOUS AND 01/31/2017 SHANKAR YAN K Ot Z87.19 PERSONAL HISTORY OF OTHER DISEASES OF TH 01/31/2017 SHANKAR DO YAN Vickey Ot Z87.440 PERSONAL HISTORY OF URINARY (TRACT) INFE 01/31/2017 SHANKAR DO YAN Vickey Ot Z90.49 ACQUIRED ABSENCE OF OTHER SPECIFIED PART 01/31/2017 SHANKAR DO YAN Vickey Ot Z90.710 ACQUIRED ABSENCE OF BOTH CERVIX AND UTER 01/31/2017 SHANKAR DO YAN Vickey Ot Z90.89 ACQUIRED ABSENCE OF OTHER ORGANS 02/01/2017 SHANKAR DO YAN Vickey Ot F32.9 MAJOR DEPRESSIVE DISORDER, SINGLE EPISOD 02/01/2017 SHANKAR GAMING YAN Hurd Ot F41.9 ANXIETY DISORDER, UNSPECIFIED 02/01/2017 SHANKAR GAMING YAN Hurd Ot G43.909 MIGRAINE, UNSP, NOT INTRACTABLE, WITHOUT 02/01/2017 SHANKAR DO YAN Vickey Ot J39.2 OTHER DISEASES OF PHARYNX 02/01/2017 SHANKAR GAMING YAN Vickey Ot J45.909 UNSPECIFIED ASTHMA, UNCOMPLICATED 02/01/2017 SHANKAR GAMING YAN K Ot Z82.49 FAMILY HX OF ISCHEM HEART DIS AND OTH DI 02/01/2017 SHANKAR YAN K Ot Z86.010 PERSONAL HISTORY OF COLONIC POLYPS 02/01/2017 SHANKAR YAN Vickey Ot Z86.19 PERSONAL HISTORY OF OTHER INFECTIOUS AND 02/01/2017 SHANKAR GAMING YAN Vickey Ot Z87.19 PERSONAL HISTORY OF OTHER DISEASES OF 02/01/2017 SHANKAR DO YAN Vickey Ot Z87.440 PERSONAL HISTORY OF URINARY (TRACT) INFE 02/01/2017 SHANKAR GAMING YAN Vickey Ot Z90.49 ACQUIRED ABSENCE OF OTHER SPECIFIED PART 02/01/2017 SHANKAR DO YAN Vickey Ot Z90.710 ACQUIRED ABSENCE OF BOTH CERVIX AND UTER 02/01/2017 SHANKAR DO YAN Vickey Ot Z90.89 ACQUIRED ABSENCE OF OTHER ORGANS 02/05/2017 YAN CHAPARRO DO Ot F32.9 MAJOR DEPRESSIVE DISORDER, SINGLE EPISOD 02/05/2017 SHANKAR YAN K Ot F41.9 ANXIETY DISORDER, UNSPECIFIED 02/05/2017 SHANKAR GAMING YAN Vickey Ot G43.909 MIGRAINE, UNSP, NOT INTRACTABLE, WITHOUT 02/05/2017 SHANKAR YAN K Ot J39.2 OTHER DISEASES OF PHARYNX 02/05/2017 SHANKAR DO YAN Vickey Ot J45.909 UNSPECIFIED ASTHMA, UNCOMPLICATED 02/05/2017 SHANKAR GAMING YAN Vickey Ot Z82.49 FAMILY HX OF ISCHEM HEART DIS AND OTH DI 02/05/2017 SHANKAR GAMING YAN Vickey Ot Z86.010 PERSONAL HISTORY OF COLONIC POLYPS 02/05/2017 SHANKAR GAMING YAN Vickey Ot Z86.19 PERSONAL HISTORY OF OTHER INFECTIOUS AND 02/05/2017 SHANKAR YAN Vickey Ot Z87.19 PERSONAL HISTORY OF OTHER DISEASES OF 02/05/2017 SHANKAR DO YAN Vickey Ot Z87.440 PERSONAL HISTORY OF URINARY (TRACT) INFE 02/05/2017 SHANKAR YAN Vickey Ot Z90.49 ACQUIRED ABSENCE OF OTHER SPECIFIED PART 02/05/2017 SHANKAR YAN Vickey Ot Z90.710 ACQUIRED ABSENCE OF BOTH CERVIX AND UTER 02/05/2017 SHANKAR YAN Ot Z90.89 ACQUIRED ABSENCE OF OTHER ORGANS 02/21/2017 SHRUTHI PARISH, MAKAYLA Alston Ot F32.9 MAJOR DEPRESSIVE DISORDER, SINGLE EPISOD 02/21/2017 SHRUTHI PARISH, MAKAYLA Alston Ot F41.9 ANXIETY DISORDER, UNSPECIFIED 02/21/2017 MAKAYLA HAWKINS MD Ot G43.909 MIGRAINE, UNSP, NOT INTRACTABLE, WITHOUT 02/21/2017 MAKAYLA HAWKINS MD Ot J45.909 UNSPECIFIED ASTHMA, UNCOMPLICATED 02/21/2017 MAKAYLA HAWKINS MD Ot L03.221 CELLULITIS OF NECK 02/21/2017 MAKAYLA HAWKINS MD Ot R51 HEADACHE 02/21/2017 MAKAYLA HAWKINS MD Ot Z82.49 FAMILY HX OF ISCHEM HEART DIS AND OTH DI 02/21/2017 MAKAYLA HAWKINS MD Ot Z86.010 PERSONAL HISTORY OF COLONIC POLYPS 02/21/2017 MAKAYLA HAWKINS MD Ot Z86.19 PERSONAL HISTORY OF OTHER INFECTIOUS AND 02/21/2017 MAKAYLA HAWKINS MD Ot Z87.19 PERSONAL HISTORY OF OTHER DISEASES OF TH 02/21/2017 MAKAYLA HAWKINS MD Ot Z87.440 PERSONAL HISTORY OF URINARY (TRACT) INFE 02/21/2017 MAKAYLA HAWKINS MD Ot Z90.49 ACQUIRED ABSENCE OF OTHER SPECIFIED PART 02/21/2017 MAKAYLA HAWKINS MD Ot Z90.710 ACQUIRED ABSENCE OF BOTH CERVIX AND UTER 02/21/2017 MAKAYLA HAWKINS MD Ot Z90.89 ACQUIRED ABSENCE OF OTHER ORGANS 03/07/2017 IZABELA RENDON MD Ot F32.9 MAJOR DEPRESSIVE DISORDER, SINGLE EPISOD 03/07/2017 IZABELA RENDON MD Ot F41.9 ANXIETY DISORDER, UNSPECIFIED 03/07/2017 IZABELA RENDON MD Ot G43.909 MIGRAINE, UNSP, NOT INTRACTABLE, WITHOUT 03/07/2017 IZABELA RENDON MD Ot J45.909 UNSPECIFIED ASTHMA, UNCOMPLICATED 03/07/2017 IZABELA RENDON MD Ot K76.0 FATTY (CHANGE OF) LIVER, NOT ELSEWHERE C 03/07/2017 IZABELA RENDON MD Ot R10.11 RIGHT UPPER QUADRANT PAIN 03/07/2017 IZABELA RENDON MD Ot R16.0 HEPATOMEGALY, NOT ELSEWHERE CLASSIFIED 03/07/2017 IZABELA RENDON MD Ot Z80.9 FAMILY HISTORY OF MALIGNANT NEOPLASM, UN 03/07/2017 IZABELA RENDON MD, Ot Z82.49 FAMILY HX OF ISCHEM HEART DIS AND OTH DI 03/07/2017 IZABELA RENDON MD Ot Z90.49 ACQUIRED ABSENCE OF OTHER SPECIFIED PART 03/07/2017 IZABELA RENDON MD Ot Z90.710 ACQUIRED ABSENCE OF BOTH CERVIX AND UTER 03/07/2017 IZABELA RENDON MD Ot Z90.89 ACQUIRED ABSENCE OF OTHER ORGANS 03/14/2017 YUKI MARCH MD, Ot F41.9 ANXIETY DISORDER, UNSPECIFIED 03/14/2017 YUKI MARCH MD Ot G43.909 MIGRAINE, UNSP, NOT INTRACTABLE, WITHOUT 03/14/2017 YUKI MARCH MD Ot N28.89 OTHER SPECIFIED DISORDERS OF KIDNEY AND 03/14/2017 YUKI MARCH MD Ot R10.10 UPPER ABDOMINAL PAIN, UNSPECIFIED 03/14/2017 YUKI MARCH MD Ot R10.13 EPIGASTRIC PAIN 03/14/2017 YUKI MARCH MD Ot Z79.899 OTHER NURSING HOME (CURRENT) DRUG THERAPY 03/15/2017 YUKI MARCH MD Ot F41.9 ANXIETY DISORDER, UNSPECIFIED 03/15/2017 YUKI MARCH MD Ot G43.909 MIGRAINE, UNSP, NOT INTRACTABLE, WITHOUT 03/15/2017 YUKI MARCH MD Ot N28.89 OTHER SPECIFIED DISORDERS OF KIDNEY AND 03/15/2017 YUKI MARCH MD Ot R10.10 UPPER ABDOMINAL PAIN, UNSPECIFIED 03/15/2017 YUKI MARCH MD Ot R10.13 EPIGASTRIC PAIN 03/15/2017 YUKI MARCH MD Ot Z79.899 OTHER MEDIA CONSULTANT (CURRENT) DRUG THERAPY 03/18/2017 YUKI MARCH MD Ot F41.9 ANXIETY DISORDER, UNSPECIFIED 03/18/2017 YUKI MARCH MD Ot G43.909 MIGRAINE, UNSP, NOT INTRACTABLE, WITHOUT 03/18/2017 YUKI MARCH MD Ot N28.89 OTHER SPECIFIED DISORDERS OF KIDNEY AND 03/18/2017 YUKI MARCH MD Ot R10.10 UPPER ABDOMINAL PAIN, UNSPECIFIED 03/18/2017 YUKI MARCH MD Ot R10.13 EPIGASTRIC PAIN 03/18/2017 YUKI MARCH MD Ot Z79.899 OTHER MEDIA CONSULTANT (CURRENT) DRUG THERAPY 03/20/2017 YUKI MARCH MD Ot F41.9 ANXIETY DISORDER, UNSPECIFIED 03/20/2017 YUKI MARCH MD Ot G43.909 MIGRAINE, UNSP, NOT INTRACTABLE, WITHOUT 03/20/2017 YUKI MARCH MD Ot N28.89 OTHER SPECIFIED DISORDERS OF KIDNEY AND 03/20/2017 YUKI MARCH MD Ot R10.10 UPPER ABDOMINAL PAIN, UNSPECIFIED 03/20/2017 YUKI MARCH MD Ot R10.13 EPIGASTRIC PAIN 03/20/2017 YUKI MARCH MD Ot Z79.899 OTHER MEDIA CONSULTANT (CURRENT) DRUG THERAPY 04/13/2017 GEORGES FINN APRN Ot F32.9 MAJOR DEPRESSIVE DISORDER, SINGLE EPISOD 04/13/2017 GEORGES FINN APRN Ot F41.9 ANXIETY DISORDER, UNSPECIFIED 04/13/2017 GEORGES FINN APRN Ot G43.909 MIGRAINE, UNSP, NOT INTRACTABLE, WITHOUT 04/13/2017 GEORGES FINN APRN Ot G89.29 OTHER CHRONIC PAIN 04/13/2017 GEORGES FINN APRN Ot J45.909 UNSPECIFIED ASTHMA, UNCOMPLICATED 04/13/2017 GEORGES FINN APRN Ot K59.00 CONSTIPATION, UNSPECIFIED 04/13/2017 GEORGES FINN APRN Ot K85.91 ACUTE PANCREATITIS WITH UNINFECTED NECRO 04/13/2017 GEORGES FINN APRN Ot R10.84 GENERALIZED ABDOMINAL PAIN 04/13/2017 GEORGES FINN APRN Ot R21 RASH AND OTHER NONSPECIFIC SKIN ERUPTION 04/13/2017 GEORGES FINN APRN Ot T50.905A ADVERSE EFFECT OF UNSP DRUG/MEDS/BIOL BO 04/13/2017 GEORGES FINN APRN Ot Z82.49 FAMILY HX OF ISCHEM HEART DIS AND OTH DI 04/13/2017 GEORGES FINN APRN Ot Z86.010 PERSONAL HISTORY OF COLONIC POLYPS 04/13/2017 GEORGES FINN APRN Ot Z87.19 PERSONAL HISTORY OF OTHER DISEASES OF TH 04/13/2017 GEORGES FINN APRN Ot Z90.49 ACQUIRED ABSENCE OF OTHER SPECIFIED PART 04/13/2017 GEORGES FINN APRN Ot Z90.5 ACQUIRED ABSENCE OF KIDNEY 04/13/2017 GEORGSE FINN APRN Ot Z90.710 ACQUIRED ABSENCE OF BOTH CERVIX AND UTER 04/13/2017 GEORGES FINN APRN Ot Z90.89 ACQUIRED ABSENCE OF OTHER ORGANS 04/18/2017 KIARA MORRISON Ot F32.9 MAJOR DEPRESSIVE DISORDER, SINGLE EPISOD 04/18/2017 KIARA MORRISON Ot F41.9 ANXIETY DISORDER, UNSPECIFIED 04/18/2017 KIARA MORRISON Ot G43.909 MIGRAINE, UNSP, NOT INTRACTABLE, WITHOUT 04/18/2017 KIARA MORRISON Ot J45.909 UNSPECIFIED ASTHMA, UNCOMPLICATED 04/18/2017 KIARA MORRISON Ot 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 04/18/2017 KIARA MORRISON Ot R10.9 UNSPECIFIED ABDOMINAL PAIN 04/18/2017 KIARA MORRISON Ot Z82.49 FAMILY HX OF ISCHEM HEART DIS AND OTH DI 04/18/2017 KIARA MORRISON Ot Z86.19 PERSONAL HISTORY OF OTHER INFECTIOUS AND 04/18/2017 KIARA MORRISON Ot Z87.440 PERSONAL HISTORY OF URINARY (TRACT) INFE 04/18/2017 KIARA MORRISON Ot Z90.710 ACQUIRED ABSENCE OF BOTH CERVIX AND UTER 04/18/2017 KIARA MORRISON Ot Z90.89 ACQUIRED ABSENCE OF OTHER ORGANS 04/18/2017 KIARA MORRISON Ot Z98.890 OTHER SPECIFIED POSTPROCEDURAL STATES 04/19/2017 GEORGES FINN APRN Ot F32.9 MAJOR DEPRESSIVE DISORDER, SINGLE EPISOD 04/19/2017 GEORGES FINN APRN Ot F41.9 ANXIETY DISORDER, UNSPECIFIED 04/19/2017 GEORGES FINN APRN Ot G43.909 MIGRAINE, UNSP, NOT INTRACTABLE, WITHOUT 04/19/2017 GEORGES FINN APRN Ot G89.29 OTHER CHRONIC PAIN 04/19/2017 GEORGES FINN APRN Ot J45.909 UNSPECIFIED ASTHMA, UNCOMPLICATED 04/19/2017 GEORGES FINN APRN Ot K59.00 CONSTIPATION, UNSPECIFIED 04/19/2017 GEORGES FINN APRN Ot K85.91 ACUTE PANCREATITIS WITH UNINFECTED NECRO 04/19/2017 GEORGES FINN APRN Ot R10.84 GENERALIZED ABDOMINAL PAIN 04/19/2017 GEORGES FINN APRN Ot R21 RASH AND OTHER NONSPECIFIC SKIN ERUPTION 04/19/2017 GEORGES FINN APRN Ot T50.905A ADVERSE EFFECT OF UNSP DRUG/MEDS/BIOL BO 04/19/2017 GEORGES FINN APRN Ot Z82.49 FAMILY HX OF ISCHEM HEART DIS AND OTH DI 04/19/2017 GEORGES FINN APRN Ot Z86.010 PERSONAL HISTORY OF COLONIC POLYPS 04/19/2017 GEORGES FINN APRN Ot Z87.19 PERSONAL HISTORY OF OTHER DISEASES OF TH 04/19/2017 GEORGES FINN APRN Ot Z90.49 ACQUIRED ABSENCE OF OTHER SPECIFIED PART 04/19/2017 GEORGES FINN APRN Ot Z90.5 ACQUIRED ABSENCE OF KIDNEY 04/19/2017 GEORGES FINN APRN Ot Z90.710 ACQUIRED ABSENCE OF BOTH CERVIX AND UTER 04/19/2017 GEORGES FINN APRN Ot Z90.89 ACQUIRED ABSENCE OF OTHER ORGANS 04/24/2017 KIARA MORRISON Ot F32.9 MAJOR DEPRESSIVE DISORDER, SINGLE EPISOD 04/24/2017 KIARA MORRISON Ot F41.9 ANXIETY DISORDER, UNSPECIFIED 04/24/2017 KIARA MORRISON Ot G43.909 MIGRAINE, UNSP, NOT INTRACTABLE, WITHOUT 04/24/2017 KIARA MORRISON Ot J45.909 UNSPECIFIED ASTHMA, UNCOMPLICATED 04/24/2017 KIARA MORRISON Ot 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 04/24/2017 KIARA MORRISON Ot R10.9 UNSPECIFIED ABDOMINAL PAIN 04/24/2017 KIARA MORRISON Ot Z82.49 FAMILY HX OF ISCHEM HEART DIS AND OTH DI 04/24/2017 KIARA MORRISON Ot Z86.19 PERSONAL HISTORY OF OTHER INFECTIOUS AND 04/24/2017 KIARA MORRISON Ot Z87.440 PERSONAL HISTORY OF URINARY (TRACT) INFE 04/24/2017 KIARA MORRISON Ot Z90.710 ACQUIRED ABSENCE OF BOTH CERVIX AND UTER 04/24/2017 KIARA MORRISON Ot Z90.89 ACQUIRED ABSENCE OF OTHER ORGANS 04/24/2017 KIARA MORRISON Ot Z98.890 OTHER SPECIFIED POSTPROCEDURAL STATES 04/30/2017 SHANKAR GAMING YAN K Ot F32.9 MAJOR DEPRESSIVE DISORDER, SINGLE EPISOD 04/30/2017 SHANKAR YAN K Ot F41.9 ANXIETY DISORDER, UNSPECIFIED 04/30/2017 SHANKAR DO YAN K Ot G43.909 MIGRAINE, UNSP, NOT INTRACTABLE, WITHOUT 04/30/2017 SHANKAR DO YAN K Ot G89.18 OTHER ACUTE POSTPROCEDURAL PAIN 04/30/2017 SHANKAR YAN K Ot J45.909 UNSPECIFIED ASTHMA, UNCOMPLICATED 04/30/2017 SHANKAR GAMING YAN K Ot R10.32 LEFT LOWER QUADRANT PAIN 04/30/2017 SHANKAR DO YAN K Ot Z82.49 FAMILY HX OF ISCHEM HEART DIS AND OTH DI 04/30/2017 SHANKAR DO YAN K Ot Z86.010 PERSONAL HISTORY OF COLONIC POLYPS 04/30/2017 SHANKAR DO YAN K Ot Z86.19 PERSONAL HISTORY OF OTHER INFECTIOUS AND 04/30/2017 SHANKAR YAN K Ot Z87.19 PERSONAL HISTORY OF OTHER DISEASES OF TH 04/30/2017 SHANKAR DO YAN K Ot Z87.440 PERSONAL HISTORY OF URINARY (TRACT) INFE 04/30/2017 SHANKAR YAN K Ot Z90.49 ACQUIRED ABSENCE OF OTHER SPECIFIED PART 04/30/2017 SHANKAR GAMING YAN K Ot Z90.5 ACQUIRED ABSENCE OF KIDNEY 04/30/2017 SHANKAR YAN K Ot Z90.710 ACQUIRED ABSENCE OF BOTH CERVIX AND UTER 04/30/2017 SHANKAR YAN K Ot Z90.89 ACQUIRED ABSENCE OF OTHER ORGANS 05/06/2017 SHANKAR YAN K Ot F32.9 MAJOR DEPRESSIVE DISORDER, SINGLE EPISOD 05/06/2017 SHANKAR YAN K Ot F41.9 ANXIETY DISORDER, UNSPECIFIED 05/06/2017 SHANKAR DO YAN K Ot G43.909 MIGRAINE, UNSP, NOT INTRACTABLE, WITHOUT 05/06/2017 SHANKAR DO YAN K Ot G89.18 OTHER ACUTE POSTPROCEDURAL PAIN 05/06/2017 YAN CHAPARRO DO Ot J45.909 UNSPECIFIED ASTHMA, UNCOMPLICATED 05/06/2017 YAN CHAPARRO DO Ot R10.32 LEFT LOWER QUADRANT PAIN 05/06/2017 YAN CHAPARRO DO Ot Z82.49 FAMILY HX OF ISCHEM HEART DIS AND OTH DI 05/06/2017 YAN CHAPARRO DO Ot Z86.010 PERSONAL HISTORY OF COLONIC POLYPS 05/06/2017 YAN CHAPARRO DO Ot Z86.19 PERSONAL HISTORY OF OTHER INFECTIOUS AND 05/06/2017 YAN CHAPARRO DO Ot Z87.19 PERSONAL HISTORY OF OTHER DISEASES OF TH 05/06/2017 YAN CHAPARRO DO Ot Z87.440 PERSONAL HISTORY OF URINARY (TRACT) INFE 05/06/2017 YAN CHAPARRO DO Ot Z90.49 ACQUIRED ABSENCE OF OTHER SPECIFIED PART 05/06/2017 YAN CHAPARRO DO Ot Z90.5 ACQUIRED ABSENCE OF KIDNEY 05/06/2017 YAN CHAPARRO DO Ot Z90.710 ACQUIRED ABSENCE OF BOTH CERVIX AND UTER 05/06/2017 YAN CHAPARRO DO Ot Z90.89 ACQUIRED ABSENCE OF OTHER ORGANS 05/30/2017 Ot 620.2 OVARIAN CYST NEC/NOS 05/30/2017 Ot 789.00 ABDOMINAL PAIN, UNSPECIFIED SITE 05/30/2017 Ot V72.63 PRE- PROCEDURAL LABORATORY EXAMINATION 05/30/2017 Ot V74.8 SCREEN- BACTERIAL DIS NEC 05/30/2017 LUIS MORENO MD Ot 278.00 OBESITY, NOS 05/30/2017 LUIS MORENO MD Ot 311 DEPRESSIVE DISORDER NEC 05/30/2017 LUIS MORENO MD Ot 493.00 EXTRINSIC ASTHMA, NOS 05/30/2017 LUIS MORENO MD Ot 724.79 DISORDER OF COCCYX NEC 05/30/2017 LUIS MORENO MD Ot V58.69 OTH MED,LT,CURRENT USE 05/30/2017 LUIS MORENO MD Ot V85.41 BODY MASS INDEX 40.0-44.9, ADULT 05/30/2017 RONY ALDANA APRN Ot 571.8 CHRONIC LIVER DIS NEC 05/30/2017 TATA TOMAS MD Ot 724.70 DISORDER OF COCCYX NOS 05/30/2017 TATA TOMAS MD, Ot V72.63 PRE-PROCEDURAL LABORATORY EXAMINATION 05/30/2017 TATA TOMAS MD, Ot V74.8 SCREEN-BACTERIAL DIS NEC 05/30/2017 LAAZRO HURTADO LIAISON OFFICER Ot 278.01 MORBID OBESITY 05/30/2017 BRYANTLAZARO Benji LIAISON OFFICER Ot 401.9 HYPERTENSION NOS 05/30/2017 BRYANTLAZARO Benji LIAISON OFFICER Ot 786.09 RESPIRATORY ABNORM NEC 05/30/2017 LAZARO HURTADO LIAISON OFFICER Ot V85.42 BODY MASS INDEX 45.0-49.9, ADULT 05/30/2017 DEE BAH MD Ot 723.0 CERVICAL SPINAL STENOSIS 05/30/2017 DEE BAH MD Ot 724.02 SPINAL STENOSIS, LUMBAR REG, W/OUT NEURO 05/30/2017 ROCHELLE CANNON MD, Ot M77.8 OTHER ENTHESOPATHIES, NOT ELSEWHERE CLAS 05/30/2017 ROCHELLE CANNON MD, Ot M23.8X1 OTHER INTERNAL DERANGEMENTS OF RIGHT KNE 05/30/2017 ROCHELLE CANNON MD, Ot Z01.818 ENCOUNTER FOR OTHER PREPROCEDURAL EXAMIN 05/30/2017 ROCHELLE CANNON MD, Ot Z11.2 ENCOUNTER FOR SCREENING FOR OTHER BACTER 05/30/2017 CARMEN GIBBS MD, Ot E78.2 MIXED HYPERLIPIDEMIA 05/30/2017 ROCHELLE CANNON MD, Ot S83.241S OTH TEAR OF MEDIAL MENISCUS, CURRENT INJ 05/30/2017 ROCHELLE CANNON MD, Ot X58.XXXS EXPOSURE TO OTHER SPECIFIED FACTORS, SEQ 05/30/2017 ROCHELLE CANNON MD, Ot Y99.8 OTHER EXTERNAL CAUSE STATUS 05/30/2017 ROCHELLE CANNON MD, Ot M79.604 PAIN IN RIGHT LEG 05/30/2017 ROCHELLE CANNON MD, Ot M25.461 EFFUSION, RIGHT KNEE 05/30/2017 ROCHELLE CANNON MD, Ot S83.241A OTH TEAR OF MEDIAL MENISCUS, CURRENT INJ 05/30/2017 CARMEN GIBBS MD, Ot R04.2 HEMOPTYSIS 05/30/2017 CARMEN GIBBS MD, Ot R22.1 LOCALIZED SWELLING, MASS AND LUMP, NECK 05/30/2017 SAI MD, CARMEN N Ot R22.1 LOCALIZED SWELLING, MASS AND LUMP, NECK 05/30/2017 GEORGES FINN APRN Ot F32.9 MAJOR DEPRESSIVE DISORDER, SINGLE EPISOD 05/30/2017 GEORGES FINN APRN Ot F41.9 ANXIETY DISORDER, UNSPECIFIED 05/30/2017 GEORGES FINN APRN Ot G43.909 MIGRAINE, UNSP, NOT INTRACTABLE, WITHOUT 05/30/2017 GEORGES FINN APRN Ot J45.909 UNSPECIFIED ASTHMA, UNCOMPLICATED 05/30/2017 GEORGES FINN APRN Ot N39.0 URINARY TRACT INFECTION, SITE NOT SPECIF 05/30/2017 GEORGES FINN APRN Ot R30.0 DYSURIA 05/30/2017 GEORGES FINN APRN Ot Z82.49 FAMILY HX OF ISCHEM HEART DIS AND OTH DI 05/30/2017 GEORGES FINN APRN Ot Z86.010 PERSONAL HISTORY OF COLONIC POLYPS 05/30/2017 GEORGES FINN APRN Ot Z87.19 PERSONAL HISTORY OF OTHER DISEASES OF TH 05/30/2017 GEORGES FINN APRN Ot Z87.440 PERSONAL HISTORY OF URINARY (TRACT) INFE 05/30/2017 GEORGES FINN APRN Ot Z90.49 ACQUIRED ABSENCE OF OTHER SPECIFIED PART 05/30/2017 GEORGES FINN APRN Ot Z90.5 ACQUIRED ABSENCE OF KIDNEY 05/30/2017 GEORGES FINN APRN Ot Z90.710 ACQUIRED ABSENCE OF BOTH CERVIX AND UTER 05/30/2017 GEORGES FINN APRN Ot Z90.89 ACQUIRED ABSENCE OF OTHER ORGANS 06/28/2017 YUNIOR LYLES MD Ot Z01.818 ENCOUNTER FOR OTHER PREPROCEDURAL EXAMIN 06/28/2017 YUNIOR LYLES MD Ot Z12.11 ENCOUNTER FOR SCREENING FOR MALIGNANT NE 06/28/2017 YUNIOR LYLES MD Ot Z86.010 PERSONAL HISTORY OF COLONIC POLYPS Procedures Code Description Performed By Performed On OtolarynRochelle Cat 03/28/2010 61573 PAP SMEAR 08/02/2011 62243 EXCISION BENIGN LESION 1.1- 2 cm (specify location in [facility] descriiption) 05/12/2012 S0630 SUTURE REMOVAL 05/19/2012 70765 SKIN TISSUE PROCEDURE 06/05/2013 44282 US LIVER ULTRASOUND 06/05/2013 85925 OXIMETRY 09/12/2013 14311 OXIMETRY 09/16/2013 15597 THERAPUTIC INJ SQ/IM 09/16/2013 J2930 SOLUMEDROL INJ 09/16/2013 84500 OXIMETRY 09/17/2013 26281 XRAY ELBOW R 2 VIEWS 09/23/2013 78754 CULTURE UROGENITAL 09/24/2013 J2550 PHENERGAN INJECTION UP TO 50 MG 10/28/2013 00012 THERAPUTIC INJ SQ/IM 10/28/2013 16423 LIVER PANEL (LFT) 10/28/2013 18059 LIPASE 10/28/2013 65493 CBC 10/28/2013 10357 ROUTINE VENIPUNCTURE 01/21/2014 51223 UA W/ CULTURE IF INDICATED 01/21/2014 10689 CBC 01/22/2014 [id number] GFR CALC (RESULT ONLY) 01/22/2014 03077 CMP 01/22/2014 30594 CMP 04/27/2014 72707 TSH 04/27/2014 25182 CBC 04/27/2014 13048 ROUTINE VENIPUNCTURE 04/27/2014 19932 ROUTINE VENIPUNCTURE 05/10/2014 60570 XRAY RIBS RIGHT UNILATERAL 2 OR MORE VIEWS 05/10/2014 13131 UA W/ CULTURE IF INDICATED 05/10/2014 70516 CBC 05/10/2014 [id number] GFR CALC (RESULT ONLY) 05/10/2014 53113 CMP 05/10/2014 10488 AMYLASE 05/10/2014 94180 LIPASE 05/10/[address] ABDOMEN & PELVIS W/ & W/ O CONTRAST 05/17/2014 30713 XRAY CERVICAL SPINE, 2 OR 3 VIEWS 09/06/2014 74778 XRAY THORACIC SPINE 2 VIEWS 09/06/2014 60704 XRAY LUMBAR SPINE 2 OR 3 VIEWS 09/06/2014 Results Test Result Range Complete urinalysis with reflex to culture - 03/05/16 18:35 Urine color determination YELLOW NRG Urine clarity determination CLEAR NRG Urine pH measurement by test strip 5 5-9 Specific gravity of urine by test strip 1.025 1.016- 1.022 Urine protein assay by test strip, semi-quantitative 1+ NEGATIVE Urine glucose detection by automated test strip NEGATIVE NEGATIVE Erythrocytes detection in urine sediment by light microscopy 4+ NEGATIVE Urine ketones detection by automated test strip NEGATIVE NEGATIVE Urine nitrite detection by test strip NEGATIVE NEGATIVE Urine total bilirubin detection by test strip NEGATIVE NEGATIVE Urine urobilinogen measurement by automated test strip (mass/volume) NORMAL NORMAL Urine leukocyte esterase detection by dipstick 1+ NEGATIVE Automated urine sediment erythrocyte count by microscopy (number/high power field) [HPF] NRG Automated urine sediment leukocyte count by microscopy (number/high power field ) [HPF] NRG Bacteria detection in urine sediment by light microscopy FEW NRG Squamous epithelial cells detection in urine sediment by light microscopy 2-5 NRG Crystals detection in urine sediment by light microscopy NONE NRG Casts detection in urine sediment by light microscopy NONE NRG Mucus detection in urine sediment by light microscopy MODERATE NRG Complete urinalysis with reflex to culture NO NRG Bacteria identification in genital specimen by aerobe culture - 03/05/16 18:35 FREE TEXT EXTERNAL FROM TUBE ENRICHMENT BROTH NRG QUANTITY OF GROWTH Isolated NRG MRSA AGAR Screening test for MRSA is NEGATIVE (Final to follow) NRG Bacteria identification in genital specimen by aerobe culture [id number] NRG FREE TEXT EXTERNAL 2 PLUS NORMAL RISHI NRG FREE TEXT EXTERNAL 3 MODERATE NORMAL RISHI NRG Chlamydia trachomatis DNA detection by probe and signal amplification method - 03/05/16 18:35 Chlamydia trachomatis DNA detection by probe and target amplification method Negative Negative Neisseria gonorrhoeae DNA detection by probe and signal amplification method - 03/05/16 18:35 Gonorrhea amp DNA-urine Negative Negative Microscopic examination by wet preparation - 03/05/16 18:35 WET PREP RESULTS NO WBC'S OBSERVED ON DIRECT GRAM STAIN NRG Methicillin resistant Staphylococcus aureus (MRSA) screening culture - 10:25 Methicillin resistant Staphylococcus aureus (MRSA) screening culture NEG NRG Complete blood count (CBC) with automated white blood cell (WBC) differential - 05/23/16 11:17 Blood leukocytes automated count (number/volume) 9.5 10*3/uL 4.3-11.0 Blood erythrocytes automated count (number/volume) 4.45 10*6/uL 4.35-5.85 Venous blood hemoglobin measurement (mass/volume) 12.6 g/dL 11.5-16.0 Blood hematocrit (volume fraction) 38 % 35-52 Automated erythrocyte mean corpuscular volume 85 [foz_us] 80-99 Automated erythrocyte mean corpuscular hemoglobin (mass per erythrocyte) 28 pg 25-34 Automated erythrocyte mean corpuscular hemoglobin concentration measurement ( mass/volume) 33 g/dL 32-36 Automated erythrocyte distribution width ratio 13.1 % 10.0-14.5 Automated blood platelet count (count/volume) 320 10*3/uL 130-400 Automated blood platelet mean volume measurement 9.5 [foz_us] 7.4-10.4 Automated blood neutrophils/100 leukocytes 64 % 42-75 Automated blood lymphocytes/100 leukocytes 30 % 12-44 Blood monocytes/100 leukocytes 5 % 0-12 Automated blood eosinophils/100 leukocytes 1 % 0-10 Automated blood basophils/100 leukocytes 0 % 0-10 Blood neutrophils automated count (number/volume) 6.1 10*3 1.8-7.8 Blood lymphocytes automated count (number/volume) 2.8 10*3 1.0-4.0 Blood monocytes automated count (number/volume) 0.4 10*3 0.0-1.0 Automated eosinophil count 0.1 10*3/uL 0.0-0.3 Automated blood basophil count (count/volume) 0.0 10*3/uL 0.0-0.1 Complete urinalysis with reflex to culture - 05/23/16 11:17 Urine color determination YELLOW NRG Urine clarity determination CLEAR NRG Urine pH measurement by test strip 6 5-9 Specific gravity of urine by test strip 1.025 1.016- 1.022 Urine protein assay by test strip, semi-quantitative NEGATIVE NEGATIVE Urine glucose detection by automated test strip NEGATIVE NEGATIVE Erythrocytes detection in urine sediment by light microscopy NEGATIVE NEGATIVE Urine ketones detection by automated test strip NEGATIVE NEGATIVE Urine nitrite detection by test strip NEGATIVE NEGATIVE Urine total bilirubin detection by test strip NEGATIVE NEGATIVE Urine urobilinogen measurement by automated test strip (mass/volume) NORMAL NORMAL Urine leukocyte esterase detection by dipstick NEGATIVE NEGATIVE Automated urine sediment erythrocyte count by microscopy (number/high power field) NONE NRG Automated urine sediment leukocyte count by microscopy (number/high power field ) [HPF] NRG Bacteria detection in urine sediment by light microscopy MODERATE NRG Squamous epithelial cells detection in urine sediment by light microscopy 10-25 NRG Crystals detection in urine sediment by light microscopy NONE NRG Casts detection in urine sediment by light microscopy NONE NRG Mucus detection in urine sediment by light microscopy MODERATE NRG Complete urinalysis with reflex to culture YES NRG Comprehensive metabolic panel - 05/23/16 11:17 Serum or plasma sodium measurement (moles/volume) 138 mmol/L 135-145 Serum or plasma potassium measurement (moles/volume) 3.9 mmol/L 3.6-5.0 Serum or plasma chloride measurement (moles/volume) 107 mmol/L 98-107 Carbon dioxide 22 mmol/L 21-32 Serum or plasma anion gap determination (moles/volume) 9 mmol/L 5-14 Serum or plasma urea nitrogen measurement (mass/volume) 10 mg/dL 7-18 Serum or plasma creatinine measurement (mass/volume) 0.62 mg/dL 0.60-1.30 Serum or plasma urea nitrogen/creatinine mass ratio 16 NRG Serum or plasma creatinine measurement with calculation of estimated glomerular filtration rate > NRG Serum or plasma glucose measurement (mass/volume) 85 mg/dL 70-105 Serum or plasma calcium measurement (mass/volume) 8.8 mg/dL 8.5-10.1 Serum or plasma total bilirubin measurement (mass/volume) 0.3 mg/dL 0.1-1.0 Serum or plasma alkaline phosphatase measurement (enzymatic activity/volume) 63 U/L 40-136 Serum or plasma aspartate aminotransferase measurement (enzymatic activity/ volume) 19 U/L 5-34 Serum or plasma alanine aminotransferase measurement (enzymatic activity/volume ) 12 U/L 0-55 Serum or plasma protein measurement (mass/volume) 6.7 g/dL 6.4-8.2 Serum or plasma albumin measurement (mass/volume) 3.7 g/dL 3.2-4.5 THYROID STIMULATING HORMONE - 05/23/16 11:17 THYROID STIMULATING HORMONE 1.43 u[iU]/mL 0.35-4.94 Serum or plasma thyroxine (T4) free measurement (mass/volume) - 05/23/16 11:17 Serum or plasma thyroxine (T4) free measurement (mass/volume) 1.00 ng/dL 0.70-1.48 Bacterial urine culture - 05/23/16 11:17 URINE CULTURE RESULTS <10,000/ML NR Streptococcus pyogenes antigen detection - 06/24/16 10:33 Streptococcus pyogenes antigen detection NEGATIVE NEGATIVE Bacterial throat culture - 06/24/16 10:33 Bacterial throat culture NBS NR Complete blood count (CBC) with automated white blood cell (WBC) differential - 08/05/16 12:40 Blood leukocytes automated count (number/volume) 9.6 10*3/uL 4.3-11.0 Blood erythrocytes automated count (number/volume) 4.52 10*6/uL 4.35-5.85 Venous blood hemoglobin measurement (mass/volume) 12.8 g/dL 11.5-16.0 Blood hematocrit (volume fraction) 38 % 35-52 Automated erythrocyte mean corpuscular volume 85 [foz_us] 80-99 Automated erythrocyte mean corpuscular hemoglobin (mass per erythrocyte) 28 pg 25-34 Automated erythrocyte mean corpuscular hemoglobin concentration measurement ( mass/volume) 33 g/dL 32-36 Automated erythrocyte distribution width ratio 13.3 % 10.0-14.5 Automated blood platelet count (count/volume) 301 10*3/uL 130-400 Automated blood platelet mean volume measurement 9.3 [foz_us] 7.4-10.4 Automated blood neutrophils/100 leukocytes 64 % 42-75 Automated blood lymphocytes/100 leukocytes 30 % 12-44 Blood monocytes/100 leukocytes 4 % 0-12 Automated blood eosinophils/100 leukocytes 2 % 0-10 Automated blood basophils/100 leukocytes 0 % 0-10 Blood neutrophils automated count (number/volume) 6.2 10*3 1.8-7.8 Blood lymphocytes automated count (number/volume) 2.9 10*3 1.0-4.0 Blood monocytes automated count (number/volume) 0.4 10*3 0.0-1.0 Automated eosinophil count 0.2 10*3/uL 0.0-0.3 Automated blood basophil count (count/volume) 0.0 10*3/uL 0.0-0.1 Comprehensive metabolic panel - 08/05/16 12:40 Serum or plasma sodium measurement (moles/volume) 140 mmol/L 135-145 Serum or plasma potassium measurement (moles/volume) 4.0 mmol/L 3.6-5.0 Serum or plasma chloride measurement (moles/volume) 105 mmol/L 98-107 Carbon dioxide 25 mmol/L 21-32 Serum or plasma anion gap determination (moles/volume) 10 mmol/L 5-14 Serum or plasma urea nitrogen measurement (mass/volume) 11 mg/dL 7-18 Serum or plasma creatinine measurement (mass/volume) 0.75 mg/dL 0.60-1.30 Serum or plasma urea nitrogen/creatinine mass ratio 15 NRG Serum or plasma creatinine measurement with calculation of estimated glomerular filtration rate > NRG Serum or plasma glucose measurement (mass/volume) 83 mg/dL 70-105 Serum or plasma calcium measurement (mass/volume) 9.1 mg/dL 8.5-10.1 Serum or plasma total bilirubin measurement (mass/volume) 0.4 mg/dL 0.1-1.0 Serum or plasma alkaline phosphatase measurement (enzymatic activity/volume) 61 U/L 40-136 Serum or plasma aspartate aminotransferase measurement (enzymatic activity/ volume) 20 U/L 5-34 Serum or plasma alanine aminotransferase measurement (enzymatic activity/volume ) 14 U/L 0-55 Serum or plasma protein measurement (mass/volume) 7.0 g/dL 6.4-8.2 Serum or plasma albumin measurement (mass/volume) 3.8 g/dL 3.2-4.5 Lipase - 08/05/16 12:40 Lipase 26 U/L 8-78 Serum or plasma C reactive protein measurement (mass/volume) - 08/05/16 12:40 Serum or plasma C reactive protein measurement (mass/volume) 1.68 mg /dL 0.00-0.50 Complete urinalysis with reflex to culture - 08/05/16 13:15 Urine color determination YELLOW NRG Urine clarity determination CLEAR NRG Urine pH measurement by test strip 5 5-9 Specific gravity of urine by test strip 1.025 1.016- 1.022 Urine protein assay by test strip, semi-quantitative 1+ NEGATIVE Urine glucose detection by automated test strip NEGATIVE NEGATIVE Erythrocytes detection in urine sediment by light microscopy NEGATIVE NEGATIVE Urine ketones detection by automated test strip NEGATIVE NEGATIVE Urine nitrite detection by test strip NEGATIVE NEGATIVE Urine total bilirubin detection by test strip NEGATIVE NEGATIVE Urine urobilinogen measurement by automated test strip (mass/volume) NORMAL NORMAL Urine leukocyte esterase detection by dipstick NEGATIVE NEGATIVE Automated urine sediment erythrocyte count by microscopy (number/high power field) NONE NRG Automated urine sediment leukocyte count by microscopy (number/high power field ) RARE NRG Bacteria detection in urine sediment by light microscopy LARGE NRG Squamous epithelial cells detection in urine sediment by light microscopy TNTC NRG Crystals detection in urine sediment by light microscopy NONE NRG Casts detection in urine sediment by light microscopy NONE NRG Mucus detection in urine sediment by light microscopy LARGE NRG Complete urinalysis with reflex to culture NO NRG Complete blood count (CBC) with automated white blood cell (WBC) differential - 10/11/16 17:15 Blood leukocytes automated count (number/volume) 10.1 10*3/uL 4.3-11.0 Blood erythrocytes automated count (number/volume) 4.58 10*6/uL 4.35-5.85 Venous blood hemoglobin measurement (mass/volume) 12.8 g/dL 11.5-16.0 Blood hematocrit (volume fraction) 39 % 35-52 Automated erythrocyte mean corpuscular volume 85 [foz_us] 80-99 Automated erythrocyte mean corpuscular hemoglobin (mass per erythrocyte) 28 pg 25-34 Automated erythrocyte mean corpuscular hemoglobin concentration measurement ( mass/volume) 33 g/dL 32-36 Automated erythrocyte distribution width ratio 13.1 % 10.0-14.5 Automated blood platelet count (count/volume) 335 10*3/uL 130-400 Automated blood platelet mean volume measurement 9.5 [foz_us] 7.4-10.4 Automated blood neutrophils/100 leukocytes 59 % 42-75 Automated blood lymphocytes/100 leukocytes 36 % 12-44 Blood monocytes/100 leukocytes 4 % 0-12 Automated blood eosinophils/100 leukocytes 2 % 0-10 Automated blood basophils/100 leukocytes 0 % 0-10 Blood neutrophils automated count (number/volume) 5.9 10*3 1.8-7.8 Blood lymphocytes automated count (number/volume) 3.6 10*3 1.0-4.0 Blood monocytes automated count (number/volume) 0.4 10*3 0.0-1.0 Automated eosinophil count 0.2 10*3/uL 0.0-0.3 Automated blood basophil count (count/volume) 0.0 10*3/uL 0.0-0.1 Complete urinalysis with reflex to culture - 10/11/16 17:15 Urine color determination YELLOW NRG Urine clarity determination SLIGHTLY CLOUDY NRG Urine pH measurement by test strip 6 5-9 Specific gravity of urine by test strip 1.025 1.016- 1.022 Urine protein assay by test strip, semi-quantitative NEGATIVE NEGATIVE Urine glucose detection by automated test strip NEGATIVE NEGATIVE Erythrocytes detection in urine sediment by light microscopy NEGATIVE NEGATIVE Urine ketones detection by automated test strip NEGATIVE NEGATIVE Urine nitrite detection by test strip NEGATIVE NEGATIVE Urine total bilirubin detection by test strip NEGATIVE NEGATIVE Urine urobilinogen measurement by automated test strip (mass/volume) NORMAL NORMAL Urine leukocyte esterase detection by dipstick 1+ NEGATIVE Automated urine sediment erythrocyte count by microscopy (number/high power field) NONE NRG Automated urine sediment leukocyte count by microscopy (number/high power field ) [HPF] NRG Bacteria detection in urine sediment by light microscopy FEW NRG Squamous epithelial cells detection in urine sediment by light microscopy 25-50 NRG Crystals detection in urine sediment by light microscopy NONE NRG Casts detection in urine sediment by light microscopy NONE NRG Mucus detection in urine sediment by light microscopy LARGE NRG Complete urinalysis with reflex to culture NO NRG Comprehensive metabolic panel - 10/11/16 17:15 Serum or plasma sodium measurement (moles/volume) 141 mmol/L 135-145 Serum or plasma potassium measurement (moles/volume) 3.8 mmol/L 3.6-5.0 Serum or plasma chloride measurement (moles/volume) 105 mmol/L 98-107 Carbon dioxide 24 mmol/L 21-32 Serum or plasma anion gap determination (moles/volume) 12 mmol/L 5-14 Serum or plasma urea nitrogen measurement (mass/volume) 11 mg/dL 7-18 Serum or plasma creatinine measurement (mass/volume) 0.78 mg/dL 0.60-1.30 Serum or plasma urea nitrogen/creatinine mass ratio 14 NRG Serum or plasma creatinine measurement with calculation of estimated glomerular filtration rate > NRG Serum or plasma glucose measurement (mass/volume) 83 mg/dL 70-105 Serum or plasma calcium measurement (mass/volume) 9.3 mg/dL 8.5-10.1 Serum or plasma total bilirubin measurement (mass/volume) 0.3 mg/dL 0.1-1.0 Serum or plasma alkaline phosphatase measurement (enzymatic activity/volume) 56 U/L 40-136 Serum or plasma aspartate aminotransferase measurement (enzymatic activity/ volume) 23 U/L 5-34 Serum or plasma alanine aminotransferase measurement (enzymatic activity/volume ) 25 U/L 0-55 Serum or plasma protein measurement (mass/volume) 7.2 g/dL 6.4-8.2 Serum or plasma albumin measurement (mass/volume) 4.1 g/dL 3.2-4.5 Serum or plasma amylase measurement (enzymatic activity/volume) - 10/11/16 17: 15 Serum or plasma amylase measurement (enzymatic activity/volume) 47 U /L 25-125 Lipase - 10/11/16 17:15 Lipase 26 U/L 8-78 Erythrocyte sedimentation rate by westergren method - 10/11/16 17:15 Erythrocyte sedimentation rate by westergren method 29 mm 0-20 Streptococcus pyogenes antigen detection - 12/01/16 16:45 Streptococcus pyogenes antigen detection NEGATIVE NEGATIVE Bacterial throat culture - 12/01/16 16:45 Bacterial throat culture NBS NRG Complete urinalysis with reflex to culture - 12/01/16 17:16 Urine color determination YELLOW NRG Urine clarity determination SLIGHTLY CLOUDY NRG Urine pH measurement by test strip 5 5-9 Specific gravity of urine by test strip 1.020 1.016- 1.022 Urine protein assay by test strip, semi-quantitative NEGATIVE NEGATIVE Urine glucose detection by automated test strip NEGATIVE NEGATIVE Erythrocytes detection in urine sediment by light microscopy NEGATIVE NEGATIVE Urine ketones detection by automated test strip NEGATIVE NEGATIVE Urine nitrite detection by test strip NEGATIVE NEGATIVE Urine total bilirubin detection by test strip NEGATIVE NEGATIVE Urine urobilinogen measurement by automated test strip (mass/volume) NORMAL NORMAL Urine leukocyte esterase detection by dipstick NEGATIVE NEGATIVE Automated urine sediment erythrocyte count by microscopy (number/high power field) NONE NRG Automated urine sediment leukocyte count by microscopy (number/high power field ) [HPF] NRG Bacteria detection in urine sediment by light microscopy FEW NRG Squamous epithelial cells detection in urine sediment by light microscopy 5-10 NRG Crystals detection in urine sediment by light microscopy NONE NRG Casts detection in urine sediment by light microscopy NONE NRG Mucus detection in urine sediment by light microscopy LARGE NRG Complete urinalysis with reflex to culture YES NRG Bacterial urine culture - 12/01/16 17:16 URINE CULTURE RESULTS 10,000/ML - 100,000/ML NRG Complete blood count (CBC) with automated white blood cell (WBC) differential - 12/01/16 18:18 Blood leukocytes automated count (number/volume) 11.3 10*3/uL 4.3-11.0 Blood erythrocytes automated count (number/volume) 4.36 10*6/uL 4.35-5.85 Venous blood hemoglobin measurement (mass/volume) 12.2 g/dL 11.5-16.0 Blood hematocrit (volume fraction) 37 % 35-52 Automated erythrocyte mean corpuscular volume 86 [foz_us] 80-99 Automated erythrocyte mean corpuscular hemoglobin (mass per erythrocyte) 28 pg 25-34 Automated erythrocyte mean corpuscular hemoglobin concentration measurement ( mass/volume) 33 g/dL 32-36 Automated erythrocyte distribution width ratio 13.2 % 10.0-14.5 Automated blood platelet count (count/volume) 299 10*3/uL 130-400 Automated blood platelet mean volume measurement 9.2 [foz_us] 7.4-10.4 Automated blood neutrophils/100 leukocytes 67 % 42-75 Automated blood lymphocytes/100 leukocytes 27 % 12-44 Blood monocytes/100 leukocytes 4 % 0-12 Automated blood eosinophils/100 leukocytes 2 % 0-10 Automated blood basophils/100 leukocytes 0 % 0-10 Blood neutrophils automated count (number/volume) 7.6 10*3 1.8-7.8 Blood lymphocytes automated count (number/volume) 3.1 10*3 1.0-4.0 Blood monocytes automated count (number/volume) 0.4 10*3 0.0-1.0 Automated eosinophil count 0.2 10*3/uL 0.0-0.3 Automated blood basophil count (count/volume) 0.0 10*3/uL 0.0-0.1 Comprehensive metabolic panel - 12/01/16 18:18 Serum or plasma sodium measurement (moles/volume) 142 mmol/L 135-145 Serum or plasma potassium measurement (moles/volume) 3.9 mmol/L 3.6-5.0 Serum or plasma chloride measurement (moles/volume) 106 mmol/L 98-107 Carbon dioxide 25 mmol/L 21-32 Serum or plasma anion gap determination (moles/volume) 11 mmol/L 5-14 Serum or plasma urea nitrogen measurement (mass/volume) 9 mg/dL 7-18 Serum or plasma creatinine measurement (mass/volume) 0.70 mg/dL 0.60-1.30 Serum or plasma urea nitrogen/creatinine mass ratio 13 0 -20 Serum or plasma creatinine measurement with calculation of estimated glomerular filtration rate > NRG Serum or plasma glucose measurement (mass/volume) 98 mg/dL 70-105 Serum or plasma calcium measurement (mass/volume) 9.1 mg/dL 8.5-10.1 Serum or plasma total bilirubin measurement (mass/volume) 0.4 mg/dL 0.1-1.0 Serum or plasma alkaline phosphatase measurement (enzymatic activity/volume) 61 U/L 40-136 Serum or plasma aspartate aminotransferase measurement (enzymatic activity/ volume) 22 U/L 5-34 Serum or plasma alanine aminotransferase measurement (enzymatic activity/volume ) 16 U/L 0-55 Serum or plasma protein measurement (mass/volume) 7.1 g/dL 6.4-8.2 Serum or plasma albumin measurement (mass/volume) 3.8 g/dL 3.2-4.5 Serum or plasma C reactive protein measurement (mass/volume) - 12/01/16 18:18 Serum or plasma C reactive protein measurement (mass/volume) 1.54 mg /dL 0.00-0.50 Complete urinalysis with reflex to culture - 03/07/17 09:00 Urine color determination YELLOW NRG Urine clarity determination VERY CLOUDY NRG Urine pH measurement by test strip 5 5-9 Specific gravity of urine by test strip 1.020 1.016- 1.022 Urine protein assay by test strip, semi-quantitative 1+ NEGATIVE Urine glucose detection by automated test strip NEGATIVE NEGATIVE Erythrocytes detection in urine sediment by light microscopy NEGATIVE NEGATIVE Urine ketones detection by automated test strip NEGATIVE NEGATIVE Urine nitrite detection by test strip NEGATIVE NEGATIVE Urine total bilirubin detection by test strip NEGATIVE NEGATIVE Urine urobilinogen measurement by automated test strip (mass/volume) NORMAL NORMAL Urine leukocyte esterase detection by dipstick 1+ NEGATIVE Automated urine sediment erythrocyte count by microscopy (number/high power field) NONE NRG Automated urine sediment leukocyte count by microscopy (number/high power field ) [HPF] NRG Bacteria detection in urine sediment by light microscopy FEW NRG Squamous epithelial cells detection in urine sediment by light microscopy 10-25 NRG Crystals detection in urine sediment by light microscopy NONE NRG Casts detection in urine sediment by light microscopy NONE NRG Mucus detection in urine sediment by light microscopy NEGATIVE NRG Complete urinalysis with reflex to culture YES NRG Bacterial urine culture - 03/07/17 09:00 URINE CULTURE RESULTS <10,000/ML NRG Complete blood count (CBC) with automated white blood cell (WBC) differential - 03/07/17 09:25 Blood leukocytes automated count (number/volume) 8.7 10*3/uL 4.3-11.0 Blood erythrocytes automated count (number/volume) 4.38 10*6/uL 4.35-5.85 Venous blood hemoglobin measurement (mass/volume) 12.3 g/dL 11.5-16.0 Blood hematocrit (volume fraction) 37 % 35-52 Automated erythrocyte mean corpuscular volume 85 [foz_us] 80-99 Automated erythrocyte mean corpuscular hemoglobin (mass per erythrocyte) 28 pg 25-34 Automated erythrocyte mean corpuscular hemoglobin concentration measurement ( mass/volume) 33 g/dL 32-36 Automated erythrocyte distribution width ratio 13.2 % 10.0-14.5 Automated blood platelet count (count/volume) 286 10*3/uL 130-400 Automated blood platelet mean volume measurement 9.5 [foz_us] 7.4-10.4 Automated blood neutrophils/100 leukocytes 65 % 42-75 Automated blood lymphocytes/100 leukocytes 28 % 12-44 Blood monocytes/100 leukocytes 5 % 0-12 Automated blood eosinophils/100 leukocytes 2 % 0-10 Automated blood basophils/100 leukocytes 0 % 0-10 Blood neutrophils automated count (number/volume) 5.6 10*3 1.8-7.8 Blood lymphocytes automated count (number/volume) 2.4 10*3 1.0-4.0 Blood monocytes automated count (number/volume) 0.4 10*3 0.0-1.0 Automated eosinophil count 0.2 10*3/uL 0.0-0.3 Automated blood basophil count (count/volume) 0.0 10*3/uL 0.0-0.1 Comprehensive metabolic panel - 03/07/17 09:25 Serum or plasma sodium measurement (moles/volume) 138 mmol/L 135-145 Serum or plasma potassium measurement (moles/volume) 4.2 mmol/L 3.6-5.0 Serum or plasma chloride measurement (moles/volume) 105 mmol/L 98-107 Carbon dioxide 22 mmol/L 21-32 Serum or plasma anion gap determination (moles/volume) 11 mmol/L 5-14 Serum or plasma urea nitrogen measurement (mass/volume) 9 mg/dL 7-18 Serum or plasma creatinine measurement (mass/volume) 0.67 mg/dL 0.60-1.30 Serum or plasma urea nitrogen/creatinine mass ratio 13 NRG Serum or plasma creatinine measurement with calculation of estimated glomerular filtration rate > NRG Serum or plasma glucose measurement (mass/volume) 93 mg/dL 70-105 Serum or plasma calcium measurement (mass/volume) 8.7 mg/dL 8.5-10.1 Serum or plasma total bilirubin measurement (mass/volume) 0.4 mg/dL 0.1-1.0 Serum or plasma alkaline phosphatase measurement (enzymatic activity/volume) 55 U/L 40-136 Serum or plasma aspartate aminotransferase measurement (enzymatic activity/ volume) 44 U/L 5-34 Serum or plasma alanine aminotransferase measurement (enzymatic activity/volume ) 21 U/L 0-55 Serum or plasma protein measurement (mass/volume) 7.3 g/dL 6.4-8.2 Serum or plasma albumin measurement (mass/volume) 3.7 g/dL 3.2-4.5 Lipase - 03/07/17 09:25 Lipase 27 U/L 8-78 Fibrin D-dimer FEU measurement in platelet poor plasma (mass/volume) - 09:25 Fibrin D-dimer FEU measurement in platelet poor plasma (mass/volume) 0.34 ug/mL 0.00-0.49 Complete blood count (CBC) with automated white blood cell (WBC) differential - 03/14/17 02:25 Blood leukocytes automated count (number/volume) 11.0 10*3/uL 4.3-11.0 Blood erythrocytes automated count (number/volume) 4.51 10*6/uL 4.35-5.85 Venous blood hemoglobin measurement (mass/volume) 12.7 g/dL 11.5-16.0 Blood hematocrit (volume fraction) 38 % 35-52 Automated erythrocyte mean corpuscular volume 85 [foz_us] 80-99 Automated erythrocyte mean corpuscular hemoglobin (mass per erythrocyte) 28 pg 25-34 Automated erythrocyte mean corpuscular hemoglobin concentration measurement ( mass/volume) 33 g/dL 32-36 Automated erythrocyte distribution width ratio 13.2 % 10.0-14.5 Automated blood platelet count (count/volume) 303 10*3/uL 130-400 Automated blood platelet mean volume measurement 9.2 [foz_us] 7.4-10.4 Automated blood neutrophils/100 leukocytes 59 % 42-75 Automated blood lymphocytes/100 leukocytes 34 % 12-44 Blood monocytes/100 leukocytes 5 % 0-12 Automated blood eosinophils/100 leukocytes 2 % 0-10 Automated blood basophils/100 leukocytes 0 % 0-10 Blood neutrophils automated count (number/volume) 6.5 10*3 1.8-7.8 Blood lymphocytes automated count (number/volume) 3.7 10*3 1.0-4.0 Blood monocytes automated count (number/volume) 0.6 10*3 0.0-1.0 Automated eosinophil count 0.2 10*3/uL 0.0-0.3 Automated blood basophil count (count/volume) 0.0 10*3/uL 0.0-0.1 Complete urinalysis with reflex to culture - 03/14/17 02:25 Urine color determination YELLOW NRG Urine clarity determination CLEAR NRG Urine pH measurement by test strip 6 5-9 Specific gravity of urine by test strip 1.020 1.016- 1.022 Urine protein assay by test strip, semi-quantitative NEGATIVE NEGATIVE Urine glucose detection by automated test strip NEGATIVE NEGATIVE Erythrocytes detection in urine sediment by light microscopy NEGATIVE NEGATIVE Urine ketones detection by automated test strip NEGATIVE NEGATIVE Urine nitrite detection by test strip NEGATIVE NEGATIVE Urine total bilirubin detection by test strip NEGATIVE NEGATIVE Urine urobilinogen measurement by automated test strip (mass/volume) NORMAL NORMAL Urine leukocyte esterase detection by dipstick NEGATIVE NEGATIVE Automated urine sediment erythrocyte count by microscopy (number/high power field) NONE NRG Automated urine sediment leukocyte count by microscopy (number/high power field ) NONE NRG Bacteria detection in urine sediment by light microscopy TRACE NRG Squamous epithelial cells detection in urine sediment by light microscopy 2-5 NRG Crystals detection in urine sediment by light microscopy NONE NRG Casts detection in urine sediment by light microscopy NONE NRG Mucus detection in urine sediment by light microscopy MODERATE NRG Complete urinalysis with reflex to culture NO NRG Comprehensive metabolic panel - 03/14/17 02:25 Serum or plasma sodium measurement (moles/volume) 141 mmol/L 135-145 Serum or plasma potassium measurement (moles/volume) 3.7 mmol/L 3.6-5.0 Serum or plasma chloride measurement (moles/volume) 107 mmol/L 98-107 Carbon dioxide 22 mmol/L 21-32 Serum or plasma anion gap determination (moles/volume) 12 mmol/L 5-14 Serum or plasma urea nitrogen measurement (mass/volume) 10 mg/dL 7-18 Serum or plasma creatinine measurement (mass/volume) 0.72 mg/dL 0.60-1.30 Serum or plasma urea nitrogen/creatinine mass ratio 14 NRG Serum or plasma creatinine measurement with calculation of estimated glomerular filtration rate > NRG Serum or plasma glucose measurement (mass/volume) 98 mg/dL 70-105 Serum or plasma calcium measurement (mass/volume) 9.1 mg/dL 8.5-10.1 Serum or plasma total bilirubin measurement (mass/volume) 0.3 mg/dL 0.1-1.0 Serum or plasma alkaline phosphatase measurement (enzymatic activity/volume) 62 U/L 40-136 Serum or plasma aspartate aminotransferase measurement (enzymatic activity/ volume) 27 U/L 5-34 Serum or plasma alanine aminotransferase measurement (enzymatic activity/volume ) 18 U/L 0-55 Serum or plasma protein measurement (mass/volume) 7.8 g/dL 6.4-8.2 Serum or plasma albumin measurement (mass/volume) 4.1 g/dL 3.2-4.5 Serum or plasma amylase measurement (enzymatic activity/volume) - 03/14/17 02: 25 Serum or plasma amylase measurement (enzymatic activity/volume) 48 U /L 25-125 Lipase - 03/14/17 02:25 Lipase 35 U/L 8-78 Complete urinalysis with reflex to culture - 04/13/17 16:39 Urine color determination YELLOW NRG Urine clarity determination CLEAR NRG Urine pH measurement by test strip 5 5-9 Specific gravity of urine by test strip 1.015 1.016- 1.022 Urine protein assay by test strip, semi-quantitative NEGATIVE NEGATIVE Urine glucose detection by automated test strip NEGATIVE NEGATIVE Erythrocytes detection in urine sediment by light microscopy NEGATIVE NEGATIVE Urine ketones detection by automated test strip NEGATIVE NEGATIVE Urine nitrite detection by test strip NEGATIVE NEGATIVE Urine total bilirubin detection by test strip NEGATIVE NEGATIVE Urine urobilinogen measurement by automated test strip (mass/volume) NORMAL NORMAL Urine leukocyte esterase detection by dipstick NEGATIVE NEGATIVE Automated urine sediment erythrocyte count by microscopy (number/high power field) NONE NRG Automated urine sediment leukocyte count by microscopy (number/high power field ) NONE NRG Bacteria detection in urine sediment by light microscopy NEGATIVE NRG Squamous epithelial cells detection in urine sediment by light microscopy 25-50 NRG Crystals detection in urine sediment by light microscopy NONE NRG Casts detection in urine sediment by light microscopy NONE NRG Mucus detection in urine sediment by light microscopy NEGATIVE NRG Complete urinalysis with reflex to culture NO NRG Complete blood count (CBC) with automated white blood cell (WBC) differential - 04/13/17 16:43 Blood leukocytes automated count (number/volume) 13.3 10*3/uL 4.3-11.0 Blood erythrocytes automated count (number/volume) 4.42 10*6/uL 4.35-5.85 Venous blood hemoglobin measurement (mass/volume) 12.6 g/dL 11.5-16.0 Blood hematocrit (volume fraction) 38 % 35-52 Automated erythrocyte mean corpuscular volume 86 [foz_us] 80-99 Automated erythrocyte mean corpuscular hemoglobin (mass per erythrocyte) 29 pg 25-34 Automated erythrocyte mean corpuscular hemoglobin concentration measurement ( mass/volume) 33 g/dL 32-36 Automated erythrocyte distribution width ratio 13.3 % 10.0-14.5 Automated blood platelet count (count/volume) 327 10*3/uL 130-400 Automated blood platelet mean volume measurement 9.7 [foz_us] 7.4-10.4 Automated blood neutrophils/100 leukocytes 68 % 42-75 Automated blood lymphocytes/100 leukocytes 24 % 12-44 Blood monocytes/100 leukocytes 4 % 0-12 Automated blood eosinophils/100 leukocytes 3 % 0-10 Automated blood basophils/100 leukocytes 0 % 0-10 Blood neutrophils automated count (number/volume) 9.1 10*3 1.8-7.8 Blood lymphocytes automated count (number/volume) 3.3 10*3 1.0-4.0 Blood monocytes automated count (number/volume) 0.6 10*3 0.0-1.0 Automated eosinophil count 0.4 10*3/uL 0.0-0.3 Automated blood basophil count (count/volume) 0.0 10*3/uL 0.0-0.1 Comprehensive metabolic panel - 04/13/17 16:43 Serum or plasma sodium measurement (moles/volume) 137 mmol/L 135-145 Serum or plasma potassium measurement (moles/volume) 3.6 mmol/L 3.6-5.0 Serum or plasma chloride measurement (moles/volume) 97 mmol/L 98-107 Carbon dioxide 27 mmol/L 21-32 Serum or plasma anion gap determination (moles/volume) 13 mmol/L 5-14 Serum or plasma urea nitrogen measurement (mass/volume) 15 mg/dL 7-18 Serum or plasma creatinine measurement (mass/volume) 1.07 mg/dL 0.60-1.30 Serum or plasma urea nitrogen/creatinine mass ratio 14 NRG Serum or plasma creatinine measurement with calculation of estimated glomerular filtration rate 59 NRG Serum or plasma glucose measurement (mass/volume) 86 mg/dL 70-105 Serum or plasma calcium measurement (mass/volume) 9.5 mg/dL 8.5-10.1 Serum or plasma total bilirubin measurement (mass/volume) 0.4 mg/dL 0.1-1.0 Serum or plasma alkaline phosphatase measurement (enzymatic activity/volume) 63 U/L 40-136 Serum or plasma aspartate aminotransferase measurement (enzymatic activity/ volume) 26 U/L 5-34 Serum or plasma alanine aminotransferase measurement (enzymatic activity/volume ) 20 U/L 0-55 Serum or plasma protein measurement (mass/volume) 7.6 g/dL 6.4-8.2 Serum or plasma albumin measurement (mass/volume) 3.9 g/dL 3.2-4.5 Lipase - 04/13/17 16:43 Lipase 170 U/L 8-78 Complete blood count (CBC) with automated white blood cell (WBC) differential - 04/30/17 01:34 Blood leukocytes automated count (number/volume) 8.9 10*3/uL 4.3-11.0 Blood erythrocytes automated count (number/volume) 4.33 10*6/uL 4.35-5.85 Venous blood hemoglobin measurement (mass/volume) 12.1 g/dL 11.5-16.0 Blood hematocrit (volume fraction) 37 % 35-52 Automated erythrocyte mean corpuscular volume 85 [foz_us] 80-99 Automated erythrocyte mean corpuscular hemoglobin (mass per erythrocyte) 28 pg 25-34 Automated erythrocyte mean corpuscular hemoglobin concentration measurement ( mass/volume) 33 g/dL 32-36 Automated erythrocyte distribution width ratio 13.4 % 10.0-14.5 Automated blood platelet count (count/volume) 310 10*3/uL 130-400 Automated blood platelet mean volume measurement 9.1 [foz_us] 7.4-10.4 Automated blood neutrophils/100 leukocytes 50 % 42-75 Automated blood lymphocytes/100 leukocytes 35 % 12-44 Blood monocytes/100 leukocytes 5 % 0-12 Automated blood eosinophils/100 leukocytes 10 % 0-10 Automated blood basophils/100 leukocytes 1 % 0-10 Blood neutrophils automated count (number/volume) 4.4 10*3 1.8-7.8 Blood lymphocytes automated count (number/volume) 3.1 10*3 1.0-4.0 Blood monocytes automated count (number/volume) 0.4 10*3 0.0-1.0 Automated eosinophil count 0.8 10*3/uL 0.0-0.3 Automated blood basophil count (count/volume) 0.1 10*3/uL 0.0-0.1 Comprehensive metabolic panel - 04/30/17 01:34 Serum or plasma sodium measurement (moles/volume) 140 mmol/L 135-145 Serum or plasma potassium measurement (moles/volume) 4.1 mmol/L 3.6-5.0 Serum or plasma chloride measurement (moles/volume) 104 mmol/L 98-107 Carbon dioxide 26 mmol/L 21-32 Serum or plasma anion gap determination (moles/volume) 10 mmol/L 5-14 Serum or plasma urea nitrogen measurement (mass/volume) 13 mg/dL 7-18 Serum or plasma creatinine measurement (mass/volume) 0.96 mg/dL 0.60-1.30 Serum or plasma urea nitrogen/creatinine mass ratio 14 NRG Serum or plasma creatinine measurement with calculation of estimated glomerular filtration rate > NRG Serum or plasma glucose measurement (mass/volume) 96 mg/dL 70-105 Serum or plasma calcium measurement (mass/volume) 8.9 mg/dL 8.5-10.1 Serum or plasma total bilirubin measurement (mass/volume) 0.3 mg/dL 0.1-1.0 Serum or plasma alkaline phosphatase measurement (enzymatic activity/volume) 60 U/L 40-136 Serum or plasma aspartate aminotransferase measurement (enzymatic activity/ volume) 31 U/L 5-34 Serum or plasma alanine aminotransferase measurement (enzymatic activity/volume ) 24 U/L 0-55 Serum or plasma protein measurement (mass/volume) 7.0 g/dL 6.4-8.2 Serum or plasma albumin measurement (mass/volume) 3.8 g/dL 3.2-4.5 Complete urinalysis with reflex to culture - 04/30/17 02:13 Urine color determination YELLOW NRG Urine clarity determination CLEAR NRG Urine pH measurement by test strip 7 5-9 Specific gravity of urine by test strip 1.010 1.016- 1.022 Urine protein assay by test strip, semi-quantitative NEGATIVE NEGATIVE Urine glucose detection by automated test strip NEGATIVE NEGATIVE Erythrocytes detection in urine sediment by light microscopy NEGATIVE NEGATIVE Urine ketones detection by automated test strip NEGATIVE NEGATIVE Urine nitrite detection by test strip NEGATIVE NEGATIVE Urine total bilirubin detection by test strip NEGATIVE NEGATIVE Urine urobilinogen measurement by automated test strip (mass/volume) NORMAL NORMAL Urine leukocyte esterase detection by dipstick NEGATIVE NEGATIVE Automated urine sediment erythrocyte count by microscopy (number/high power field) NONE NRG Automated urine sediment leukocyte count by microscopy (number/high power field ) NONE NRG Bacteria detection in urine sediment by light microscopy TRACE NRG Squamous epithelial cells detection in urine sediment by light microscopy 2-5 NRG Crystals detection in urine sediment by light microscopy NONE NRG Casts detection in urine sediment by light microscopy NONE NRG Mucus detection in urine sediment by light microscopy NEGATIVE NRG Complete urinalysis with reflex to culture NO NRG Urine drug screening test - 04/30/17 02:13 Urine phencyclidine detection by screening method NEGATIVE NEGATIVE Urine benzodiazepines detection by screening method POSITIVE NEGATIVE Urine cocaine detection NEGATIVE NEGATIVE Urine amphetamines detection by screening method NEGATIVE NEGATIVE Urine methamphetamine detection by screening method NEGATIVE NEGATIVE Urine cannabinoids detection by screening method NEGATIVE NEGATIVE Urine opiates detection by screening method NEGATIVE NEGATIVE Urine barbiturates detection NEGATIVE NEGATIVE Screening urine tricyclic antidepressants detection NEGATIVE NEGATIVE Urine methadone detection by screening method NEGATIVE NEGATIVE Urine oxycodone detection NEGATIVE NEGATIVE Urine propoxyphene detection NEGATIVE NEGATIVE Complete blood count (CBC) with automated white blood cell (WBC) differential - 05/30/17 14:20 Blood leukocytes automated count (number/volume) 10.1 10*3/uL 4.3-11.0 Blood erythrocytes automated count (number/volume) 4.32 10*6/uL 4.35-5.85 Venous blood hemoglobin measurement (mass/volume) 12.3 g/dL 11.5-16.0 Blood hematocrit (volume fraction) 37 % 35-52 Automated erythrocyte mean corpuscular volume 85 [foz_us] 80-99 Automated erythrocyte mean corpuscular hemoglobin (mass per erythrocyte) 29 pg 25-34 Automated erythrocyte mean corpuscular hemoglobin concentration measurement ( mass/volume) 34 g/dL 32-36 Automated erythrocyte distribution width ratio 13.4 % 10.0-14.5 Automated blood platelet count (count/volume) 303 10*3/uL 130-400 Automated blood platelet mean volume measurement 9.3 [foz_us] 7.4-10.4 Automated blood neutrophils/100 leukocytes 67 % 42-75 Automated blood lymphocytes/100 leukocytes 26 % 12-44 Blood monocytes/100 leukocytes 4 % 0-12 Automated blood eosinophils/100 leukocytes 4 % 0-10 Automated blood basophils/100 leukocytes 0 % 0-10 Blood neutrophils automated count (number/volume) 6.7 10*3 1.8-7.8 Blood lymphocytes automated count (number/volume) 2.6 10*3 1.0-4.0 Blood monocytes automated count (number/volume) 0.4 10*3 0.0-1.0 Automated eosinophil count 0.4 10*3/uL 0.0-0.3 Automated blood basophil count (count/volume) 0.0 10*3/uL 0.0-0.1 Whole blood basic metabolic panel - 05/30/17 14:20 Serum or plasma sodium measurement (moles/volume) 139 mmol/L 135-145 Serum or plasma potassium measurement (moles/volume) 3.6 mmol/L 3.6-5.0 Serum or plasma chloride measurement (moles/volume) 104 mmol/L 98-107 Carbon dioxide 27 mmol/L 21-32 Serum or plasma anion gap determination (moles/volume) 8 mmol/L 5-14 Serum or plasma urea nitrogen measurement (mass/volume) 13 mg/dL 7-18 Serum or plasma creatinine measurement (mass/volume) 0.84 mg/dL 0.60-1.30 Serum or plasma urea nitrogen/creatinine mass ratio 15 NRG Serum or plasma creatinine measurement with calculation of estimated glomerular filtration rate > NRG Serum or plasma glucose measurement (mass/volume) 120 mg/dL 70-105 Serum or plasma calcium measurement (mass/volume) 9.1 mg/dL 8.5-10.1 Lipase - 05/30/17 14:20 Lipase 34 U/L 8-78 Complete urinalysis with reflex to culture - 05/30/17 14:20 Urine color determination YELLOW NRG Urine clarity determination VERY CLOUDY NRG Urine pH measurement by test strip 5 5-9 Specific gravity of urine by test strip 1.020 1.016- 1.022 Urine protein assay by test strip, semi-quantitative NEGATIVE NEGATIVE Urine glucose detection by automated test strip NEGATIVE NEGATIVE Erythrocytes detection in urine sediment by light microscopy NEGATIVE NEGATIVE Urine ketones detection by automated test strip NEGATIVE NEGATIVE Urine nitrite detection by test strip NEGATIVE NEGATIVE Urine total bilirubin detection by test strip NEGATIVE NEGATIVE Urine urobilinogen measurement by automated test strip (mass/volume) NORMAL NORMAL Urine leukocyte esterase detection by dipstick NEGATIVE NEGATIVE Automated urine sediment erythrocyte count by microscopy (number/high power field) NONE NRG Automated urine sediment leukocyte count by microscopy (number/high power field ) [HPF] NRG Bacteria detection in urine sediment by light microscopy MODERATE NRG Squamous epithelial cells detection in urine sediment by light microscopy 25-50 NRG Crystals detection in urine sediment by light microscopy NONE NRG Casts detection in urine sediment by light microscopy NONE NRG Mucus detection in urine sediment by light microscopy NEGATIVE NRG Complete urinalysis with reflex to culture YES NRG Bacterial urine culture - 05/30/17 14:20 URINE CULTURE RESULTS >100,000/ML NRG Encounters ACCT No. Visit Date/Time Discharge Status Pt. Type Provider Facility Loc./Unit Complaint [id number] 09/06/2014 08:47:00 09/06/2014 23:59:59 CLS Outpatient EMIL ROLON DO [id number] 09/06/2014 08:47:00 09/06/2014 23:59:59 CLS Outpatient ANSON WADE APRN [id number] 08/17/2014 09:19:00 08/17/2014 23:59:59 CLS Outpatient CARMEN GIBBS MD [id number] 07/21/2014 07:46:00 07/21/2014 23:59:59 CLS Outpatient CARMEN GIBBS MD [id number] 07/05/2014 10:18:00 07/05/2014 23:59:59 CLS Outpatient ANSON WADE APRN [id number] 06/03/2014 15:45:00 06/03/2014 23:59:59 CLS Outpatient CARMEN GIBBS MD [id number] 05/31/2014 12:15:00 05/31/2014 23:59:59 CLS Outpatient ELLIOT MORENO DDS [id number] 05/25/2014 10:56:00 05/25/2014 23:59:59 CLS Outpatient RAQUEL TOBIAS APRN [id number] 05/17/2014 10:52:00 05/17/2014 23:59:59 CLS Outpatient ANSON WADE APRN [id number] 05/10/2014 09:54:00 05/10/2014 23:59:59 CLS Outpatient ANSON WADE APRN [id number] 04/27/2014 13:25:00 04/27/2014 23:59:59 CLS Outpatient CARMEN GIBBS MD [id number] 03/30/2014 15:35:00 03/30/2014 23:59:59 CLS Outpatient MALACHI TOBIAS APRNPEPE Dean [id number] 02/24/2014 14:34:00 02/24/2014 23:59:59 CLS Outpatient CRISTINO LOBATO APRNCATARINO Dean [id number] 02/05/2014 15:30:00 02/05/2014 23:59:59 CLS Outpatient CARMEN GIBBS MD [id number] 01/21/2014 15:35:00 01/21/2014 23:59:59 CLS Outpatient ROLON DOEMIL [id number] 01/13/2014 00:00:00 01/13/2014 23:59:59 CLS Outpatient MICHELINE PASTORRAQUEL [id number] 12/15/2013 14:31:00 12/15/2013 23:59:59 CLS Outpatient CARMEN GIBBS MD [id number] 11/03/2013 09:45:00 11/03/2013 23:59:59 CLS Outpatient ANSON WADE APRN Benji [id number] 10/28/2013 15:00:00 10/28/2013 23:59:59 CLS Outpatient EMERY LOBATO APRNKAR Dean [id number] 10/28/2013 15:00:00 10/28/2013 23:59:59 CLS Outpatient EMERY LOBATO APRNKAR Dean [id number] 09/28/2013 08:54:00 09/28/2013 23:59:59 CLS Outpatient KIM BAUMANN OSMAN Martinez [id number] 09/23/2013 10:48:00 09/23/2013 23:59:59 CLS Outpatient ROLON DOEMIL [id number] 09/23/2013 10:48:00 09/23/2013 23:59:59 CLS Outpatient ROLON DOEMIL [id number] 09/17/2013 14:15:00 09/17/2013 23:59:59 CLS Outpatient ROLON DOEMIL [id number] 09/16/2013 14:57:00 09/16/2013 23:59:59 CLS Outpatient ROLON DOEMIL [id number] 09/16/2013 14:57:00 09/16/2013 23:59:59 CLS Outpatient ROLON DOEMIL [id number] 09/12/2013 13:04:00 09/12/2013 23:59:59 CLS Outpatient KIM PASTOROSMAN [id number] 09/03/2013 11:29:00 09/03/2013 23:59:59 CLS Outpatient CARMEN GIBBS MD [id number] 07/01/2013 08:59:00 07/01/2013 23:59:59 CLS Outpatient CARMEN GIBBS MD [id number] 06/05/2013 14:44:00 06/05/2013 23:59:59 CLS Outpatient EMIL ROLON DO [id number] 06/02/2013 12:44:00 06/02/2013 23:59:59 CLS Outpatient RAQUEL LOPEZ DDS [id number] 05/29/2013 15:47:00 05/29/2013 23:59:59 CLS Outpatient CARMEN GIBBS MD [id number] 05/27/2013 09:28:00 05/27/2013 23:59:59 CLS Outpatient CARMEN GIBBS MD [id number] 05/12/2013 15:16:00 05/12/2013 23:59:59 CLS Outpatient ELLY DOUGLAS MD [id number] 08/20/2012 15:44:00 08/20/2012 23:59:59 CLS Outpatient EMIL ROLON DO [id number] 07/07/2012 11:21:00 07/07/2012 23:59:59 CLS Outpatient BRENNA LOBATO APRN [id number] 07/02/2012 09:18:00 07/02/2012 23:59:59 CLS Outpatient [id number] 05/20/2012 10:05:00 05/20/2012 23:59:59 CLS Outpatient REGINO BOYD DDS N [id number] 04/10/2012 08:55:00 04/10/2012 23:59:59 CLS Outpatient EMIL ROLON DO [id number] 06/28/2017 10:00:00 06/28/2017 10:11:00 DIS Outpatient YUNIOR LYLES MD [facility] PREOP COLONOSCOPY [id number] 05/30/2017 13:43:00 05/30/2017 15:03:00 DIS Emergency GEORGES FINN APRN [facility] ER CANNOT URINATE [id number] 04/30/2017 01:09:00 04/30/2017 03:16:00 DIS Emergency YAN CHAPARRO DO Vickey [facility] ER LOWER ABD PAIN [id number] 04/17/2017 20:45:00 04/18/2017 01:11:00 DIS Emergency KIARA MORRISON [facility] ER ABDOMINAL PAIN,KIDNEY SURGERY ON 04/10 [id number] 04/13/2017 16:02:00 04/13/2017 18:36:00 DIS Emergency 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 [facility] ER NO BOWEL MOVEMENT, KIDNEY SURGERY ON 04/10,RASH [id number] 03/14/2017 00:17:00 03/14/2017 06:22:00 DIS Emergency JOAQUIM PARISH, YUKI Machado [facility] ER ABD PAIN [id number] 03/07/2017 08:45:00 03/07/2017 12:32:00 DIS Emergency JUSTICE PARISH, IZABELA Martinez [facility] ER ABD PAIN [id number] 02/21/2017 06:02:00 02/21/2017 07:06:00 DIS Emergency SHRUTHI PARISH, MAKAYLA Alston [facility] ER GLENNA ON NECK-HOT,MEJIA, HURTS TO SWALLOW [id number] 01/30/2017 23:32:00 01/31/2017 00:22:00 DIS Emergency SHANKAR YAN Vickey [facility] ER POSS ALLERGIC RXN [id number] 12/01/2016 16:29:00 12/01/2016 19:04:00 DIS Emergency CHARLY PARISH, ADRÁIN Leal [facility] ER FEVER/THROAT PAIN [id number] 10/26/2016 12:59:00 10/26/2016 14:50:00 DIS Emergency KIARA MORRISON [facility] ER VAGINAL DISCOMFORT [id number] 10/11/2016 15:52:00 10/11/2016 18:28:00 DIS Emergency GEOVANI HERNANDEZ [facility] ER SOA,ABD PAIN WHEN BREATHING, NUMBNESS IN ARMS [id number] 08/28/2016 08:49:00 08/28/2016 23:59:59 CLS Outpatient CARMEN GIBBS MD [facility] RAD NECK MASS [id number] 08/16/2016 12:45:00 08/16/2016 23:59:59 CLS Preadmit CARMEN GIBBS MD [facility] RAD HEMOPLYSIS,NECK MASS [id number] 08/16/2016 12:21:00 08/16/2016 23:59:59 CLS Outpatient CARMEN GIBBS MD [facility] RAD HEMOPLYSIS,NECK MASS [id number] 08/05/2016 10:59:00 08/05/2016 14:43:00 DIS Emergency KIARA MORRISON [facility] ER ABD PAIN TO BACK [id number] 06/24/2016 09:45:00 06/24/2016 11:04:00 DIS Emergency ADRIÁN PARKS MD [facility] ER SORE THROAT/COUGH/GREEN SPUTUM/DIZZY [id number] 05/30/2016 06:46:00 05/30/2016 10:08:00 DIS Outpatient ROCHELLE CANNON MD [facility] SDC RIGHT KNEE TORM MEDIAL MENISCUS [id number] 05/23/2016 10:59:00 05/23/2016 12:12:00 DIS Emergency GEORGES FINN APRN [facility] ER FATIGUE [id number] 05/23/2016 09:58:00 05/23/2016 10:43:00 DIS Outpatient ROCHELLE CANNON MD [facility] PREOP RIGHT KNEE TORN MEDIAL MENISCUS [id number] 05/02/2016 15:02:00 05/02/2016 23:59:59 CLS Outpatient ROCHELLE CANNON MD [facility] RAD [id number] 03/05/2016 16:10:00 03/05/2016 19:42:00 DIS Emergency YUKI MARCH MD [facility] ER VAGINAL BLEEDING [id number] 12/21/2015 10:36:00 12/21/2015 14:35:00 DIS Inpatient CARMEN GIBBS [facility] [facility] CELLULITIS [id number] 12/19/2015 11:50:00 12/19/2015 14:29:00 DIS Emergency GEORGES FINN PASTOR [facility] ER RIGHT LEG PAIN [id number] 12/18/2015 12:43:00 12/18/2015 16:00:00 DIS Emergency NEHAL MCNALLY KIARA L [facility] ER R LEG KNOT POST SURGERY [id number] 12/12/2015 09:12:00 12/12/2015 23:59:59 CLS Outpatient ROCHELLE CANNON MD [facility] RAD DVT [id number] 11/24/2015 13:16:00 11/24/2015 23:59:59 CLS Outpatient ROCHELLE CANNON MD [facility] RAD MEDIAL MENISCUS TEAR [id number] 09/06/2015 07:15:00 09/06/2015 13:25:00 DIS Outpatient YUNIOR LYLES MD [facility] LYMPHADEROPATHY [id number] 08/31/2015 11:25:00 08/31/2015 11:53:00 DIS Outpatient YUNIOR LYLES MD [facility] PREOP LIMP NODE [id number] 06/22/2015 10:51:00 06/22/2015 23:59:59 CLS Preadmit CARMEN GIBBS MD [facility] REHAB [id number] 06/08/2015 06:16:00 06/08/2015 11:35:00 DIS Outpatient ROCHELLE CANNON MD [facility] RIGHT KNEE TORN MEDIAL MENISCUS [id number] 06/02/2015 10:22:00 06/02/2015 23:59:59 CLS Outpatient CARMEN GIBBS MD [facility] LAB HLP [id number] 06/02/2015 10:13:00 06/02/2015 23:59:59 CLS Outpatient ROCHELLE CANNON MD [facility] PREOP RIGHT KNEE TORN MEDIAL MENISCUS [id number] 05/19/2015 08:58:00 05/19/2015 23:59:59 CLS Outpatient ROCHELLE CANNON MD [facility] RAD QUADRICEPT TENDONITIS [id number] 01/12/2015 14:32:00 01/12/2015 23:59:59 CLS Outpatient DEE BAH MD [facility] RAD CERVICAL STENOSIS LUMBAR STENOSIS [id number] 11/23/2014 23:46:00 11/24/2014 02:37:00 DIS Emergency JUSTICE PARISH, IZABELA Martinez [facility] ER ABD PAIN [id number] 09/13/2014 09:03:00 09/13/2014 11:31:00 DIS Emergency JUSTICE PARISH, IZABELA Martinez [facility] ER BACK PAIN [id number] 09/04/2014 13:48:00 09/04/2014 15:54:00 DIS Emergency GEORGES 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 [facility] ER BACK PAIN [id number] 05/28/2014 01:35:00 05/28/2014 03:07:00 DIS Emergency ISSAC MASTERS MD [facility] ER POSS ALLERGIC RXN,HEAD PAIN [id number] 05/27/2014 08:20:00 05/27/2014 10:31:00 DIS Emergency RADHA MALLORY MD [facility] ER HEADACHE/NAUSEA [id number] 03/21/2014 17:22:00 03/21/2014 18:07:00 DIS Emergency YAN CHAPARRO DO [facility] ER CRAMPING [id number] 02/04/2014 08:30:00 02/04/2014 23:59:59 CLS Outpatient LAZARO HURTADO [facility] CARD HTN,DYSPNEA [id number] 01/19/2014 13:10:00 01/19/2014 14:04:00 DIS Emergency YAN CHAPARRO DO [facility] ER LOW BACK PAIN/UTI SYMPTOMS [id number] 11/20/2013 16:25:00 11/20/2013 17:42:00 DIS Emergency GEORGES 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 [facility] ER BACK PAIN [id number] 10/29/2013 10:28:00 10/29/2013 12:02:00 DIS Emergency YAN CHAPARRO DO [facility] ER NAUSEATED/VOMITING [id number] 10/06/2013 15:24:00 10/06/2013 18:34:00 DIS Emergency KIARA MORRISON [facility] ER ABD PAIN [id number] 09/07/2013 07:08:00 09/08/2013 12:30:00 DIS Outpatient REVEAL TATA PARISH [facility] SDC COCCYGDYNIA [id number] 09/01/2013 13:39:00 09/01/2013 23:59:59 CLS Outpatient TATA TOMAS MD [facility] PREOP COCCYGDYNIA [id number] 07/31/2013 06:31:00 07/31/2013 07:53:00 DIS Outpatient LUIS MORENO MD [facility] CARD COCCYX PAIN [id number] 06/30/2013 07:14:00 06/30/2013 23:59:59 CLS Outpatient RONY ALDANA TYPO MACHINE OPERATOR [facility] RAD ELEVATED LIVER ENZYMES [id number] 06/25/2013 16:02:00 06/25/2013 19:00:00 DIS Emergency ISSAC MSATERS MD [facility] ER NAUSEA,VOMITING [id number] 06/04/2013 21:16:00 06/04/2013 21:44:00 DIS Emergency YAN CHAPARRO DO [facility] ER WOUND CHECK [id number] 05/29/2013 20:51:00 05/30/2013 01:31:00 DIS Emergency KIARA MORRISON [facility] ER POSS ABSCESS [id number] 05/28/2013 10:15:00 05/28/2013 18:57:00 DIS Emergency YAN CHAPARRO DO [facility] ER LEFT LEG KNOT [id number] 05/11/2013 19:26:00 05/11/2013 19:56:00 DIS Emergency GEORGES 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 [facility] ER RASH [id number] 05/03/2013 09:13:00 05/03/2013 11:33:00 DIS Emergency JUSTICE PARISH, IZABELA Martinez [facility] ER ABD CRAMPING [id number] 03/08/2013 15:14:00 03/08/2013 16:28:00 DIS Emergency YAN CHAPARRO DO [facility] ER HEADACHE [id number] 02/12/2013 14:02:00 02/12/2013 16:12:00 DIS Emergency MOHAMUD PARISH, RADHA Hurd [facility] ER HEADACHE [id number] 02/03/2013 09:00:00 02/03/2013 23:59:59 CLS Outpatient [id number] 01/25/2013 16:03:00 01/25/2013 16:39:00 DIS Emergency YAN CHAPARRO DO [facility] ER TAILBONE THROBS [id number] 01/23/2013 07:33:00 01/23/2013 23:59:59 CLS Outpatient JOSH PARISH, LUIS Alston [facility] CARD COCCYX PAIN [id number] 12/30/2012 11:28:00 12/30/2012 12:33:00 DIS Emergency RUDOLPH PARISH, JOHN R [facility] ER LOOSING FEELING IN HANDS [id number] 11/29/2012 20:20:00 11/29/2012 21:04:00 DIS Emergency ISSAC MASTERS MD [facility] ER POST OP COMPLICATIONS [id number] 11/01/2012 13:48:00 11/01/2012 16:16:00 DIS Emergency SHANKAR YAN Vickey [facility] ER R SIDE ABD PAIN [id number] 07/03/2017 11:00:00 PEN Preadmit YUNIOR LYLES MD [facility] ENDO HX POLYPS [id number] 06/29/2017 18:40:00 ACT Emergency YUKI MARCH MD [facility] ER DARK URINE,STOMACH PAIN, THROWING UP,PANCREATITIS [id number] 05/28/2014 05:09:00 Document Registration [id number] 05/28/2014 05:09:00 Document Registration [id number] 05/28/2014 05:08:00 Document Registration [id number] 05/28/2014 05:08:00 Document Registration [id number] 05/28/2014 05:08:00 Document Registration [id number] 09/25/2012 15:23:00 Document Registration [id number] 07/09/2012 13:55:00 Document Registration [id number] 06/03/2012 18:43:00 Document Registration [id number] 05/28/2012 06:01:00 Document Registration [id number] 05/26/2012 07:40:00 Document Registration [id number] 04/29/2012 19:28:00 Document Registration [id number] 04/14/2012 20:36:00 Document Registration [id number] 04/02/2012 15:46:00 Document Registration [id number] 03/10/2012 08:51:00 Document Registration [id number] 02/02/2012 08:22:00 Document Registration [id number] 11/05/2011 18:15:00 Document Registration [id number] 10/09/2011 15:34:00 Document Registration [id number] 09/28/2011 12:13:00 Document Registration [id number] 08/20/2011 11:21:00 Document Registration [id number] 08/07/2011 12:50:00 Document Registration [id number] 06/19/2011 15:10:00 Document Registration [id number] 06/14/2011 10:23:00 Document Registration [id number] 04/26/2011 09:49:00 Document Registration [id number] 04/01/2011 15:48:00 Document Registration [id number] 01/14/2011 20:10:00 Document Registration [id number] 01/10/2011 01:57:00 Document Registration [id number] 12/29/2010 21:29:00 Document Registration [id number] 12/08/2010 18:15:00 Document Registration [id number] 11/16/2010 19:34:00 Document Registration [id number] 11/13/2010 17:20:00 Document Registration [id number] 10/07/2010 15:04:00 Document Registration [id number] 10/01/2010 20:35:00 Document Registration [id number] 09/29/2010 15:45:00 Document Registration [id number] 09/22/2010 00:30:00 Document Registration [id number] 09/20/2010 18:21:00 Document Registration [id number] 09/16/2010 19:14:00 Document Registration [id number] 09/06/2010 15:05:00 Document Registration [id number] 08/30/2010 16:23:00 Document Registration [id number] 07/31/2010 10:04:00 Document Registration [id number] 07/24/2010 05:42:00 Document Registration [id number] 07/12/2010 09:04:00 Document Registration [id number] 07/02/2010 12:40:00 Document Registration [id number] 06/07/2010 10:52:00 Document Registration [id number] 05/22/2010 18:40:00 Document Registration [id number] 05/09/2010 13:26:00 Document Registration [id number] 04/07/2010 16:51:00 Document Registration [id number] 03/31/2010 12:30:00 Document Registration [id number] 03/22/2010 20:54:00 Document Registration [id number] 02/13/2010 10:21:00 Document Registration [id number] 02/07/2010 17:04:00 Document Registration [id number] 02/05/2010 19:55:00 Document Registration [id number] 01/23/2010 10:58:00 Document Registration [id number] 01/09/2010 05:35:00 Document Registration [id number] 01/05/2010 07:39:00 Document Registration [id number] 12/13/2009 10:13:00 Document Registration [id number] 11/07/2009 17:37:00 Document Registration [id number] 11/03/2009 09:46:00 Document Registration
[2017-06-29] MEDS ORDERED: NS IV 1000 ML 1,000 ML IV ONE (20:07)
--- NOTE | 2017-06-29 20:15 | ED Abdominal Pain ---
General Chief Complaint: Abdominal/GI Problems Stated Complaint: DARK URINE,STOMACH PAIN, THROWING UP,PANCREATITIS Nursing Triage Note: PT PRESENTS TO ED WITH COMPLAINT OF UPPER ABD PAIN. PT STATES THAT SHE ALSO HAS N/V, AND UNABLE TO EAT. ALSO COMPLAINING OF DARK URINE. PT STATES THAT SHE HAS CHRONIC PANCREATITIS AND CALLED HER PANCREAS DR AND THEY INSTRUCTED HER TO COME TO THE ER. Sepsis Screen: No Definite Risk Source of Information: Patient Exam Limitations: No Limitations History of Present Illness Time Seen By Provider: 20:00 Initial Comments Here with report of upper abdominal pain, nonradiating or drinking well, dark urine, fatigue and overall not feeling well. Did have renal cell carcinoma and had left kidney removed. Has history of pancreatitis and gets this not infrequently. She is not on chemotherapy and they believe they got all the tumor with the nephrectomy performed a few months ago. Does have nausea but ticks Zofran a few hours ago and feels okay right now. Pain is not overwhelming at this point. Timing/Duration: 1-2 Days Severity/Quality: Moderate Location: Epigastric Radiation: No Radiation Activities at Onset: None Modifying Factors: Improves With Resting Associated Symptoms: No Back Pain, No Chest Pain, No Fever/Chills, Fatigue, Nausea/Vomiting, No Shortness of Air, Weakness Allergies and Home Medications Allergies Coded Allergies: meperidine (Verified Allergy, Unknown, 05/23/16) penicillin G (Verified Allergy, Unknown, 05/23/16) Home Medications Cholecalciferol (Vitamin D3) 2,000 Unit Tablet, 2,000 UNIT PO HS, (Reported) Estradiol 2 Mg Tablet, 3 MG PO HS, (Reported) TAKES 1 & 1/2 (2MG) TABLETS Ferrous Sulfate 325 Mg Tablet, 325 MG PO WEEK, (Reported) Fluoxetine HCl 40 Mg Capsule, 40 MG PO HS, (Reported) Ibuprofen 800 Mg Tablet, 800 MG PO Q8H PRN for PAIN, (Reported) Ropinirole HCl 4 Mg Tablet, 4 MG PO HS, (Reported) Review of Systems Constitutional: see HPI, No chills, No fever, malaise EENTM: No Symptoms Reported Respiratory: No Symptoms Reported, Denies Cough, Denies Shortness of Air Cardiovascular: Denies Chest Pain, Denies Edema Gastrointestinal: Abdominal Pain, Denies Diarrhea, Nausea, Denies Vomiting Genitourinary: See HPI, Denies Frequency, Denies Pain Musculoskeletal: no symptoms reported Skin: no symptoms reported Psychiatric/Neurological: No Symptoms Reported All Other Systems Reviewed Negative Unless Noted: Yes Past Rcdwhwo-Elycgb-Jyuqdp Hx Patient Social History Alcohol Use: Denies Use Recreational Drug Use: No Smoking Status: Never a Smoker 2nd Hand Smoke Exposure: No Recent Foreign Travel: No Contact w/Someone Who Travel: No Recent Infectious Disease Expo: No Recent Hopitalizations: No Immunizations Up To Date Tetanus Booster (TDap): Unknown Date of Pneumonia Vaccine: May 17, 2012 Date of Influenza Vaccine: Jul 03, 2012 Seasonal Allergies Seasonal Allergies: Yes (MILD) Surgeries History of Surgeries: Yes (R KNEE SCOPE X4 L X2, NASAL FX, EGD/COLONOSCOPY, COCCYX REMOVAL,) Surgeries: Abdominal, Adenoidectomy, Appendectomy, Gallbladder, 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, Nephrectomy, Orthopedic, Tonsillectomy Respiratory History of Respiratory Disorde: Yes (HASNT USED INHALER IN > 4 YRS) Respiratory Disorders: Asthma Currently Using CPAP: No Currently Using BIPAP: No Cardiovascular History of Cardiac Disorders: No Neurological History of Neurological Disord: Yes (RESTLESS LEG SYNDROME) Neurological Disorders: Headaches /Migraines 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 System Hx 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: Yes Sexually Transmitted Disease: No HIV/AIDS: No 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, 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 Genitourinary History of Genitourinary Disor: Yes (L KIDNEY REMOVED FOR TUMOR; FATTY LIVER/ ENLARGED LIVER) Genitourinary Disorders: UTI-Chronic Gastrointestinal History of Gastrointestinal Di: Yes (ENLARGED LIVER) Gastrointestinal Disorders: Pancreatitis, Polyps Musculoskeletal History of Musculoskeletal Dis: Yes (COCCYX-REPAIRED, MAY HAVE SIGNS OF ARTHRITIS) Musculoskeletal Disorders: Chronic Back Pain Endocrine History of Endocrine Disorders: No (CHRONIC PANCREATITIS) HEENT History of HEENT Disorders: No Loss of Vision: Denies Hearing Impairment: Denies Cancer History of Cancer: Yes Cancer: Kidney Type of Tx Receive: Surgical Intervention Psychosocial History of Psychiatric Problem: Yes Behavioral Health Disorders: Anxiety, Depression Integumentary History of Skin or Integumenta: No Skin/Integumentary Disorders: Herpes Blood Transfusions History of Blood Disorders: No Adverse Reaction to a Blood Tr: No Reviewed Nursing Assessment Reviewed/Agree w Nursing PMH: Yes Family Medical History Significant Family History: Cancer, Diabetes, Hypertension Family Medial History: Cardiovascular disease 19 FATHER Completed stroke 19 FATHER Diabetes mellitus 19 FATHER Hypercholesterolemia 19 FATHER 19 MOTHER Hypertension 19 FATHER 19 MOTHER Neoplasm 19 MOTHER Psychosocial problem 19 FATHER 19 MOTHER Physical Exam Vital Signs VS - Last 72 Hours, by Label 06/29/17 19:06 Temp 96.8 Pulse 74 Resp 20 B/P (MAP) 114/68 (83) Pulse Ox 98 O2 Delivery Room Air Capillary Refill : Less Than 3 Seconds General Appearance: WD/WN, no apparent distress HEENT: PERRL/EOMI, pharynx normal, other (mild bilateral nasal congestion with erythema and clear rhinorrhea.) Neck: full range of motion, supple Respiratory: lungs clear, normal breath sounds Cardiovascular: regular rate, rhythm, no murmur Gastrointestinal: soft, No guarding, No rebound, tenderness (central epigastric region) Extremities: non-tender, normal inspection Back: normal inspection, no CVA tenderness, no vertebral tenderness Neurologic/Psychiatric: alert, oriented x 3 Skin: warm/dry, other (skin flushed on the cheeks and neck) Progress/Results/Core Measures Results/Orders Lab Results Laboratory Tests Test 06/29/17 19:02 06/29/17 20:10 Range/Units Urine Color YELLOW Urine Clarity VERY CLOUDY H Urine pH 5 5-9 Urine Specific [place] 1.020 1.016-1.022 Urine Protein NEGATIVE NEGATIVE Urine Glucose (UA) NEGATIVE NEGATIVE Urine Ketones NEGATIVE NEGATIVE Urine Nitrite NEGATIVE NEGATIVE Urine Bilirubin NEGATIVE NEGATIVE Urine Urobilinogen NORMAL NORMAL MG/DL Urine Leukocyte Esterase NEGATIVE NEGATIVE Urine RBC (Auto) NEGATIVE NEGATIVE Urine RBC RARE /HPF Urine WBC 2-5 /HPF Urine Squamous Epithelial Cells >50 H /HPF Urine Renal Epithelial Cells NONE /HPF Urine Crystals NONE /LPF Urine Bacteria MODERATE H /HPF Urine Casts NONE /LPF Urine Mucus NEGATIVE /LPF Urine Culture Indicated NO White Blood Count 9.3 4.3-11.0 10^3/uL Red Blood Count 4.30 L 4.35-5.85 10^6/uL Hemoglobin 12.1 11.5-16.0 G/DL Hematocrit 37 35-52 % Mean Corpuscular Volume 85 80-99 FL Mean Corpuscular Hemoglobin 28 25-34 PG Mean Corpuscular Hemoglobin Concent 33 32-36 G/DL Red Cell Distribution Width 13.8 10.0-14.5 % Platelet Count 299 130-400 10^3/uL Mean Platelet Volume 9.3 7.4-10.4 FL Neutrophils (%) (Auto) 59 42-75 % Lymphocytes (%) (Auto) 34 12-44 % Monocytes (%) (Auto) 5 0-12 % Eosinophils (%) (Auto) 3 0-10 % Basophils (%) (Auto) 0 0-10 % Neutrophils # (Auto) 5.5 1.8-7.8 X 10^3 Lymphocytes # (Auto) 3.1 1.0-4.0 X 10^3 Monocytes # (Auto) 0.4 0.0-1.0 X 10^3 Eosinophils # (Auto) 0.3 0.0-0.3 10^3/uL Basophils # (Auto) 0.0 0.0-0.1 10^3/uL Sodium Level 140 135-145 MMOL/L Potassium Level 3.9 3.6-5.0 MMOL/L Chloride Level 104 98-107 MMOL/L Carbon Dioxide Level 25 21-32 MMOL/L Anion Gap 11 5-14 MMOL/L Blood Urea Nitrogen 12 7-18 MG/DL Creatinine 0.79 0.60-1.30 MG/DL Estimat Glomerular Filtration Rate > 60 BUN/Creatinine Ratio 15 Glucose Level 84 70-105 MG/DL Calcium Level 9.5 8.5-10.1 MG/DL Total Bilirubin 0.2 0.1-1.0 MG/DL Aspartate Amino Transf (AST/SGOT) 20 5-34 U/L Alanine Aminotransferase (ALT/SGPT) 18 0-55 U/L Alkaline Phosphatase 55 40-136 U/L C-Reactive Protein High Sensitivity 1.05 H 0.00-0.50 MG/DL Total Protein 7.0 6.4-8.2 GM/DL Albumin 3.7 3.2-4.5 GM/DL Amylase Level 63 25-125 U/L Lipase 49 8-78 U/L Micro Results Microbiology 06/29/17 Influenza Types A,B Antigen (CARL) - Final, Complete My Orders Orders - YUKI MARCH MD Amylase (06/29/17 20:07) Cbc With Automated Diff (06/29/17 20:07) Comprehensive Metabolic Panel (06/29/17 20:07) Hs C Reactive Protein (06/29/17 20:07) Lipase (06/29/17 20:07) Influenza A And B Antigens (06/29/17 20:07) Saline Lock/Iv-Start (06/29/17 20:07) Ns Iv 1000 Ml (Sodium Chloride 0.9%) (06/29/17 20:07) Ua Culture If Indicated (06/29/17 20:15) Acetaminophen Tablet (Tylenol Tablet) (06/29/17 20:39) Acetaminophen Tablet (Tylenol Tablet) (06/29/17 20:38) Medications Given in ED Current Medications Medications Dose Ordered Sig/Neal Route Start Time Stop Time Status Last Admin Dose Admin Sodium Chloride 1,000 ml @ 0 mls/hr Q0M ONCE IV 06/29/17 20:07 06/29/17 20:10 DC 06/29/17 20:38 1,000 MLS/HR Vital Signs/I&O Vital Sign - Last 12Hours 06/29/17 19:06 Temp 96.8 Pulse 74 Resp 20 B/P (MAP) 114/68 (83) Pulse Ox 98 O2 Delivery Room Air Blood Pressure Mean: 83 Progress Note : Progress Note Seen and evaluated. IV, labs and UA ordered. Normal saline 1 L bolus. Patient declined pain medicine. States she just took Zofran 2 hours ago and declines nausea medicine. We will check for influenza as she has had recent contacts. Monitor patient. Tylenol 1 g by mouth given for headache. Monitor patient. 2114: Overall about the same. No significant lab abnormality. Has received the fluids. She does have Zofran at home. We will initiate outpatient therapy for possible influenza-like illness with Tamiflu given her history. Discharged home with return precautions. Patient verbalize understanding instructions and agreement with plan. Departure Impression Impression: Primary Impression: Epigastric abdominal pain Additional Impression: Upper respiratory infection Qualified Codes: J06.9 - Acute upper respiratory infection, unspecified Disposition: 01 HOME, SELF-CARE Condition: Stable Departure-Patient Inst. Decision time for Depature: 21:18 Referrals: CARMEN GIBBS MD (PCP/Family) Primary Care Physician Patient Instructions: Acute Abdomen (Belly Pain), Adult (DC), Viral Upper Respiratory Infection, Adult (DC) Add. Discharge Instructions: All discharge instructions reviewed with patient and/or family. Voiced understanding. You may take Tylenol 1000 mg every 6 hours as needed for fever or pain. Plenty of fluids. Clear liquid diet for 24 hours and then advance as tolerated. Start other medication as prescribed. You may use Afrin nasal spray or the generic, 12 hour relief, 2 sprays to each nostril twice daily for 3 days only and then stop. Do not use more than 3 days. Follow up with your doctor this week for recheck and further evaluation. Return for worse pain, fever, vomiting , weakness, breathing problems or other concerns as needed. Scripts Oseltamivir Phosphate (Oseltamivir Phosphate) 75 Mg Capsule 75 MG PO BID for 5 Days, #10 CAP 0 Refills Prov: YUKI MARCH MD 06/29/17 YUKI MARCH MD Jun 29, 2017 20:15
[2017-06-29 20:19] LABS: BILIRUBIN,URINE NEGATIVE (NEGATIVE); CLARITY,URINE VERY CLOUDY; COLOR,URINE YELLOW; GLUCOSE, URINE (UA) NEGATIVE (NEGATIVE); KETONES,URINE NEGATIVE (NEGATIVE); LEUKOCYTE ESTERASE ,URINE NEGATIVE (NEGATIVE); NITRITE,URINE NEGATIVE (NEGATIVE); PH,URINE 5 (5-9); PROTEIN,URINE NEGATIVE (NEGATIVE); UROBILINOGEN,URINE NORMAL (NORMAL)
[2017-06-29 20:25] LABS: BASOPHILS % (AUTO) 0 % (0-10); EOSINOPHILS # (AUTO) 0.3 10^3/uL (0.0-0.3); EOSINOPHILS % (AUTO) 3 % (0-10); HEMATOCRIT 37 % (35-52); HEMOGLOBIN 12.1 G/DL (11.5-16.0); LYMPHOCYTES # (AUTO) 3.1 X 10^3 (1.0-4.0); LYMPHOCYTES % (AUTO) 34 % (12-44); MEAN CORPUSCULAR HEMOGLOBIN 28 PG (25-34); MEAN CORPUSCULAR HGB CONC 33 G/DL (32-36); MEAN CORPUSCULAR VOLUME 85 FL (80-99); MEAN PLATELET VOLUME 9.3 FL (7.4-10.4); MONOCYTES # (AUTO) 0.4 X 10^3 (0.0-1.0); MONOCYTES % (AUTO) 5 % (0-12); NEUTROPHILS # (AUTO) 5.5 X 10^3 (1.8-7.8); NEUTROPHILS % (AUTO) 59 % (42-75); PLATELET COUNT 299 10^3/uL (130-400); RED CELL DISTRIBUTION WIDTH 13.8 % (10.0-14.5); WHITE BLOOD COUNT 9.3 10^3/uL (4.3-11.0)
[2017-06-29 20:32] LABS: BACTERIA,URINE MODERATE /HPF; RBC,URINE RARE /HPF; SQUAMOUS EPITHELIAL CELL,UR >50 /HPF
[2017-06-29 20:38] LABS: ALANINE AMINOTRANSFERASE 18 U/L (0-55); ALBUMIN 3.7 GM/DL (3.2-4.5); ALKALINE PHOSPHATASE 55 U/L (40-136); AMYLASE 63 U/L (25-125); BILIRUBIN,TOTAL 0.2 MG/DL (0.1-1.0); BUN/CREATININE RATIO 15; CALCIUM 9.5 MG/DL (8.5-10.1); CARBON DIOXIDE 25 MMOL/L (21-32); CHLORIDE 104 MMOL/L (98-107); CREATININE SERUM 0.79 MG/DL (0.60-1.30); GFR ESTIMATED > 60; GLUCOSE 84 MG/DL (70-105); LIPASE 49 U/L (8-78); POTASSIUM 3.9 MMOL/L (3.6-5.0); SODIUM 140 MMOL/L (135-145)
[2017-06-29] MEDS ORDERED: ACETAMINOPHEN 500 MG TAB (TYLENOL) ONE (20:38)
[2017-06-29] MEDS ORDERED: ACETAMINOPHEN 500 MG TAB (TYLENOL) PO STA (20:39)
[2017-06-29] MEDS ORDERED: OSEL75CA15 PO (21:20)
[2017-06-29 21:31] VITALS: BP 115/70
== END 2017-06-29 21:31 | disposition home or self-care (01) ==
LOC: ER 18:40
DX: R10.10 Upper abdominal pain, unspecified (principal); J06.9 Acute upper respiratory infection, unspecified; F41.9 Anxiety disorder, unspecified; F32.9 Major depressive disorder, single episode, unspecified; G43.909 Migraine, unspecified, not intractable, without status migrainosus; J45.909 Unspecified asthma, uncomplicated; Z85.528 Personal history of other malignant neoplasm of kidney; Z90.710 Acquired absence of both cervix and uterus; Z90.5 Acquired absence of kidney; Z90.89 Acquired absence of other organs; Z87.19 Personal history of other diseases of the digestive system
CPT/HCPCS: 36415; 80053; 81000; 82150; 83690; 85025; 86141; 87804

== ENCOUNTER 2017-07-03 08:18 | Day surgery (SDC) | payer MEDICARE, MEDICAID ==
[~2017-07-03] VITALS: Ht 157.5 cm; Wt 111.1 kg
[~2017-07-03 08:18] MED LIST changes: +OSEL75CA15 PO
--- OUTSIDE RECORDS SUMMARY | 2017-07-03 08:22 | XMS REPORT | Continuity of Care Document ---
Author Author [employer] Organization [facility] Address Unknown Phone Unavailable Care Team Providers Care Billet Inspector Name Role Phone [employer] Unavailable Unavailable Problems Medications Allergies, Adverse Reactions, Alerts Immunizations Results Vital Signs Encounters Location Location Details Encounter Type Encounter Number Reason For Visit Attending Provider ADM Date DC Date Status Source OUTPATIENT [id number] RAQUEL BARGER 07/15/20132013 Active [facility] [place] SER[facility] [id number] [facility] 03/18/2017 03/18/2017 Active [facility] EXT RECOVERY [id number] [facility] 04/10/2017 04/11/2017 Active [facility] [place] SER[facility] [id number] [facility] 05/06/2017 05/06/2017 Active [facility] OUTPATIENT [id number] RAQUEL BARGER 06/03/20172016 Active [facility] SPECIMEN [id number] TYESHA GUZMAN 06/18/2017 06/18/2017 Active [facility] Christa QUINTANILLA Active [facility] Procedures Plan of Care Social History Assessment and Plan Family History Advance Directives Functional Status
--- OUTSIDE RECORDS SUMMARY | 2017-07-03 08:22 | XMS REPORT | Encounter Summary ---
Author Author [facility] Organization [facility] Address Unknown Phone Unavailable Care Team Providers Care Patient Financial Services Specialist Name Role Phone PCP Unavailable Reason for Visit * Reason Comments Pain Encounter Details Date Type Department Care Team Description 06/20/2017 Telephone [facility] Abel Poe MD [facility] [address] [place] [address] [place] [address] [phone] Social History Tobacco Use Types Packs/Day Years [...] Maddi Cannon RN - 06/20/2017 9:47 AM FRONT OFFICE SPEC Pt called stating she has been sick since having he GI scope and now is experiencing pain in abdomen on right side which is opposite side of renal surgery. Pt notes her urine is dark but denies fever. Pt admits to increase stress in her life and has to go to court today for which Dr Gooden is speaking with resawyer. Instructed pt she needs to either go [...]
--- OUTSIDE RECORDS SUMMARY | 2017-07-03 08:22 | XMS REPORT | Clinical Summary ---
Author [facility] Address Unknown Phone Unavailable Care Team Providers Care Bargeman Name Role Phone PCP Unavailable Source Comments Some departments are not documenting in the electronic medical record. If you do not see the information that you expected, contact Release of Information in the Health Information Management department at [phone] for further assistance in locating additional records.[facility] Allergies Active Allergy Reactions Severity Noted Date [...] Indications: VITAMIN B12 VITAMIN B12 DEFICIENCY DEFICIENCY Active Problems Problem Noted Date Left renal mass 04/10/2017 Renal mass 03/21/2017 Overview: Added automatically from request for surgery [id number] 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 06/24/2013 Overview: S/P HOLLAND, BSO 11/27 Depression 06/24/2013 S/P cholecystectomy 06/24/2013 Overview: 2007 S/P appendectomy 06/24/2013 Overview: November 2012 Pancreatitis 10/23/2011 Encounters Date Type Specialty Care Team Description 06/20/2017 Telephone Oncology Abel Poe MD Pain 06/19/2017 Orders Only Gastroenterology Tyesha Sanchez MD 06/19/2017 Telephone Gastroenterology Randy Nunez MD Follow-up Phone Call 06/18/2017 Hospital Lab [...] Taken Blood Pressure 129/78 06/03/2017 10:10 AM BOLT HEADER Pulse 66 06/03/2017 10:10 AM BOLT HEADER Temperature 36.6 C (97.8 F) 06/03/2017 10:10 AM BOLT HEADER Respiratory Rate 14 06/03/2017 10:10 AM BOLT HEADER Oxygen Saturation 97% 05/06/2017 8:47 AM BOLT HEADER Inhaled Oxygen - - Concentration Weight 117.2 kg (258 lb 4.8 oz) 06/03/2017 10:10 AM BOLT HEADER Height 160 cm (5' 3") 06/03/2017 10:10 AM BOLT HEADER Body Mass Index 45.76 06/03/2017 10:10 AM BOLT HEADER Plan of Treatment Date Type Specialty Care [...] Value Ref Range PATHOLOGY REPORT [facility] [email or web address] Department of Pathology and Laboratory Medicine [address] [place] [address] Surgical Pathology Office: [phone] SURGICAL PATHOLOGY REPORT NAME: JAYLYN DELGADO SURG PATH #: [id number] MR #: [id number] SPECIMEN CLASS: SR BILLING #: [id number] ALT ID #: LOCATION: [facility] DATE OF PROCEDURE: 06/18/2017 AGE: 32 [...] Specimen Performing Laboratory Blood MAIN LAB [address] [place] [address] * TSH WITH FREE T4 REFLEX (06/03/2017 11:28 AM) Component Value Ref Range TSH 1.708 0.35 - 5.00 MCU/ML Specimen Performing Laboratory Blood MAIN LAB [address] [place] [address] * 25-OH VITAMIN D (D2 + D3) (06/03/2017 11:28 AM) Component Value Ref Range Vitamin D(25-OH)Total 19.3 (L) 30 - 80 NG/ML Specimen Performing Laboratory Blood MAIN LAB [address] [place] [address] * LIPASE (06/03/2017 11:28 AM) Component Value Ref Range Lipase 26 11 - 82 U/L Specimen Performing Laboratory Blood MAIN LAB [address] [place] [address] * VITAMIN B12 (06/03/2017 11:28 AM) Component Value Ref Range Vitamin B12 185 180 - 914 PG/ML Specimen Performing Laboratory Blood MAIN LAB [address] [place] [address] * CORTISOL-AM (06/03/2017 11:28 AM) Component Value Ref Range Cortisol-AM 10.2 6.7 - 22.6 MCG/DL Specimen Performing Laboratory Blood MAIN LAB [address] [place] [address] * AMYLASE (06/03/2017 11:28 AM) Component Value Ref Range Amylase 39 24 - 100 U/L Specimen Performing Laboratory Blood MAIN LAB [address] [place] [address] * COMPREHENSIVE METABOLIC PANEL (06/03/2017 11:28 AM) [...] questions. Specimen Performing Laboratory Blood MAIN LAB [address] [place], [place] [id number] * BASIC METABOLIC PANEL (05/06/2017 8:31 AM) [...] Clinical Pharmacist for questions. Specimen Performing Laboratory [facility] [address] [place] [address] * CT ABD/PEL EXTERNAL IMAGING (04/13/2017) Narrative [...] 11 FL Specimen Performing Laboratory Blood [facility] LAB [address] [place] [address] * ANESTHESIA PERIPHERAL NERVE BLOCK (04/10/2017 6:48 PM) Narrative Tia Munroe MD 04/10/20174:04 PM Anesthesia Procedure: Peripheral [...] Specimen Performing Laboratory Blood MAIN LAB [address] [place] [address] * TYPE & CROSSMATCH (04/10/2017 9:29 AM) Component Value Ref Range Units Ordered 0 Crossmatch Expires 04/13/2017 Record Check 2ND TYPE REQUIRED ABO/RH(D) A NEG Antibody Screen NEG Electronic Crossmatch YES Specimen Performing Laboratory Blood MAIN LAB [address] [place] [address] from Last 3 Months
--- OUTSIDE RECORDS SUMMARY | 2017-07-03 08:22 | XMS REPORT | Encounter Summary ---
Author Author [facility] Organization [facility] Address Unknown Phone Unavailable Care Team Providers Care Calciner Operator Name Role Phone PCP Unavailable Encounter Details Date Type Department Care Team Description 05/06/[address] [facility] Exam [address] [place] [id number] Social History Tobacco Use Types Packs/Day Years [...]
--- OUTSIDE RECORDS SUMMARY | 2017-07-03 08:22 | XMS REPORT | Encounter Summary ---
Author Author [facility] Organization [facility] Address Unknown Phone Unavailable Care Team Providers Care Member Services Coordinator Name Role Phone PCP Unavailable Encounter Details Date Type Department Care Team Description 05/06/2017 Procedure Pass [facility] Exam [address] [place] [id number] Social History Tobacco Use Types Packs/Day Years [...]
--- OUTSIDE RECORDS SUMMARY | 2017-07-03 08:23 | XMS REPORT | Encounter Summary ---
Author Author [facility] Organization [facility] Address Unknown Phone Unavailable Care Team Providers Care Data Systems Manager Name Role Phone PCP Unavailable Reason for Visit * Reason Comments Medication Refill Encounter Details Date Type Department Care Team Description 05/07/2017 Refill [facility] Jessica Valera ARNP Physicians - Internal [address] [facility] Medicine [address] [facility] [place] [address] OFFICE BLDG [phone] [address] [address] Social History Tobacco Use Types [...]
--- OUTSIDE RECORDS SUMMARY | 2017-07-03 08:23 | XMS REPORT | Encounter Summary ---
Author Author [facility] Organization [facility] Address Unknown Phone Unavailable Care Team Providers Care Pantograph Setter Name Role Phone PCP Unavailable Encounter Details Date Type Department Care Team Description 06/19/2017 Orders Only [facility] Jose Sanchez MD Physicians - Internal [address] [facility] Medicine [address] [place] [address] [address] [facility] [phone] [place] [address] Social History Tobacco Use Types [...]
--- OUTSIDE RECORDS SUMMARY | 2017-07-03 08:23 | XMS REPORT | Encounter Summary ---
Author Author [facility] Organization [facility] Address Unknown Phone Unavailable Care Team Providers Care Shoe Trimmer Name Role Phone PCP Unavailable Reason for Visit * Reason Comments Appointment Request Upper EUS/Colonoscopy Encounter Details Date Type Department Care Team Description 06/06/2017 Telephone [facility] Maggie Puente Appointment Request Physicians - Internal (Upper EUS/Colonoscopy) Medicine 2ND FLOOR POD B [address] [facility] [place] [address] Social History Tobacco Use Types [...] - Maggie Puente - 06/07/2017 8:32 AM ANIMAL SHELTER MANAGER Scheduled Upper EUS/Colonoscopy at [facility] with Dr Sanchez on 06/18/17. Verbal instructions given over the phone, packet e-mailed to [email or web address]. Advised patient to contact the prescribing provider for any blood thinning medication and/or aspirin recommendations 1 week prior to having procedure. Patient verbalized understanding. * Telephone Encounter - Maggie Puente - 06/07/2017 8:28 AM ANIMAL SHELTER MANAGER Left generic message for patient to return call to schedule Upper EUS/ Colonoscopy. * Telephone Encounter - Maggie Puente - 06/06/2017 2:36 PM ANIMAL SHELTER MANAGER Left generic message for patient to return call to schedule Upper EUS/ Colonoscopy. in this encounter Plan of Treatment Date Type Specialty Care Team Description 05/06/2017 Procedure Pass Oncology 05/06/2017 Procedure Pass Oncology as of this encounter Visit Diagnoses Not on filein this encounter
--- OUTSIDE RECORDS SUMMARY | 2017-07-03 08:23 | XMS REPORT | Encounter Summary ---
Author Author [facility] Organization [facility] Address Unknown Phone Unavailable Care Team Providers Care Digital Retoucher Name Role Phone PCP Unavailable Reason for Referral * Radiology Services Status Reason Specialty Diagnoses / Referred By Referred To Procedures Contact Contact New Request Radiology Diagnoses Abel Poe MD Left renal mass [address] [place] [address] [place] [address] * Radiology Services Status Reason Specialty Diagnoses / Referred By Referred To Procedures Contact Contact New Request Radiology Diagnoses Abel Poe MD Left renal mass [address] [place] [address] [place] [place] [address] Reason for Visit * Reason Comments Heme/Onc Care Encounter Details Date Type Department Care Team Description 05/06/2017 Office Visit [facility] Abel Poe MD Left renal mass (Primary [facility] - [facility] Exam [address] Dx) [address] [facility] [address] [place] [address] [place] [address] [phone] Social History Tobacco Use Types Packs/Day Years Used Date Never Smoker Smokeless Tobacco: Never Used Alcohol Use Drinks/Week oz/Week Comments Yes Does not consume alcohol in excess. Sex Assigned at Date Recorded Not on file as of this encounter Last Filed Vital Signs Vital Sign Reading Time Taken Blood Pressure 123/61 05/06/2017 8:47 AM MANAGER OF ENVIRONMENTAL SERVICES Pulse 73 05/06/2017 8:47 AM MANAGER OF ENVIRONMENTAL SERVICES Temperature 36.7 C (98 F) 05/06/2017 8:47 AM MANAGER OF ENVIRONMENTAL SERVICES Respiratory Rate 20 05/06/2017 8:47 AM MANAGER OF ENVIRONMENTAL SERVICES Oxygen Saturation 97% 05/06/2017 8:47 AM MANAGER OF ENVIRONMENTAL SERVICES Inhaled Oxygen - - Concentration Weight 114.4 kg (252 lb 3.2 oz) 05/06/2017 8:47 AM MANAGER OF ENVIRONMENTAL SERVICES Height 156.8 cm (5' 1.75") 05/06/2017 8:47 AM MANAGER OF ENVIRONMENTAL SERVICES Body Mass Index 46.5 05/06/2017 8:47 AM MANAGER OF ENVIRONMENTAL SERVICES in this encounter Functional Status Functional Status Response Date of Assessment Does the patient have a hearing impairment: No 04/10/2017 as of this encounter Progress Notes * Jenn Bhatt RN - 05/06/2017 9:45 AM MANAGER OF ENVIRONMENTAL SERVICES Bedside bladder scan performed. 5 ml report given to Dr[address] Poe. * Abel Poe MD - 05/06/2017 9:45 AM MANAGER OF ENVIRONMENTAL SERVICES Formatting of this note may be different [...] Clinical Pharmacist for questions. Specimen Performing Laboratory [facility] [address] [place] [address] in this encounter Visit Diagnoses Diagnosis Left renal mass - Primary Unspecified disorder of kidney and ureter in this encounter
--- OUTSIDE RECORDS SUMMARY | 2017-07-03 08:23 | XMS REPORT | Encounter Summary ---
Author Author [facility] Organization [facility] Address Unknown Phone Unavailable Care Team Providers Care Bobbin Fixer Name Role Phone PCP Unavailable Reason for Visit * Reason Comments Abdominal pain Encounter Details Date Type Department Care Team Description 05/21/2017 Telephone [facility] Abel Poe MD Abdominal pain Cancer Center - [facility] Exam [address] [place] [address] [place] [address] [phone] Social History Tobacco Use Types Packs/Day Years [...] Jenn Bhatt RN - 05/21/2017 3:20 PM BIOLOGY LECTURER Pt called to report that she had [...]
--- OUTSIDE RECORDS SUMMARY | 2017-07-03 08:23 | XMS REPORT | Encounter Summary ---
Author Author [facility] Organization [facility] Address Unknown Phone Unavailable Care Team Providers Care Manufacturing Software Engineer Name Role Phone PCP Unavailable Reason for Visit * Reason Comments Results Test Encounter Details Date Type Department Care Team Description 06/06/2017 Telephone [facility] Randy Nunez MD Results ; Test Physicians - Internal [address] [facility] Medicine [address] [place] [address] [place] [address] Social History Tobacco Use Types [...] Arleen Leone RN - 06/06/2017 8:47 AM CONTAINER SHOP WELDER Patient aware of lab results along with Dr. Nunez's recommendations. Results sent to Dr. Whittington's office and patient will get with their office regarding administration of her new Vitamin B12 monthly injections. All new prescriptions have been e-scribed to patient's pharmacy. Patient aware may have to purchase Iron over the counter. * Telephone Encounter - Arleen Leone RN - 06/06/2017 8:34 AM CONTAINER SHOP WELDER ----- Message from Randy Nunez MD sent at 06/05/2017 10:11 AM CONTAINER SHOP WELDER ----- Laboratory evaluation is consistent with iron [...]
--- OUTSIDE RECORDS SUMMARY | 2017-07-03 08:23 | XMS REPORT | Encounter Summary ---
Author Author [facility] Organization [facility] Address Unknown Phone Unavailable Care Team Providers Care Frame Feeder Name Role Phone PCP Unavailable Encounter Details Date Type Department Care Team Description 06/03/2017 Hospital [facility] Randy Nunez MD Encounter [address] [place] [address] [address] [place] [address] [phone] Social History Tobacco Use Types Packs/Day Years [...] Specimen Performing Laboratory Blood MAIN LAB [address] [place] [address] * LIPASE (06/03/2017 11:28 AM) Component Value Ref Range Lipase 26 11 - 82 U/L Specimen Performing Laboratory Blood MAIN LAB [address] [place] [address] * AMYLASE (06/03/2017 11:28 AM) Component Value Ref Range Amylase 39 24 - 100 U/L Specimen Performing Laboratory Blood MAIN LAB [address] [place] [address] * IRON + BINDING CAPACITY + %SAT+ FERRITIN (06/03/2017 11:28 AM) Component Value Ref Range Iron 86 50 - 160 MCG/DL Iron Binding-TIBC 548 (H) 270 - 380 MCG/DL % Saturation 16 (L) 28 - 42 % Ferritin 60 10 - 200 NG/ML Specimen Performing Laboratory Blood MAIN LAB [address] [place] [address] * VITAMIN B12 (06/03/2017 11:28 AM) Component Value Ref Range Vitamin B12 185 180 - 914 PG/ML Specimen Performing Laboratory Blood [facility]U MAIN LAB [address] [place] [address] * TSH WITH FREE T4 REFLEX (06/03/2017 11:28 AM) Component Value Ref Range TSH 1.708 0.35 - 5.00 MCU/ML Specimen Performing Laboratory Blood [facility]U MAIN LAB [address] [place] [address] * CORTISOL-AM (06/03/2017 11:28 AM) Component Value Ref Range Cortisol-AM 10.2 6.7 - 22.6 MCG/DL Specimen Performing Laboratory Blood [facility]U MAIN LAB [address] [place] [address] * COMPREHENSIVE METABOLIC PANEL (06/03/2017 11:28 AM) [...] Performing Laboratory Blood [facility] MAIN LAB [address] [place] [address] in this encounter Visit Diagnoses Diagnosis Nausea and vomiting, intractability of vomiting not specified, unspecified vomiting type Fatigue, unspecified type Weight gain Abnormal weight gain Microcytic anemia Iron deficiency anemia, unspecified Chronic pancreatitis, unspecified pancreatitis type (HCC) Low vitamin D level Medication monitoring encounter Encounter for therapeutic drug monitoring in this encounter
--- OUTSIDE RECORDS SUMMARY | 2017-07-03 08:23 | XMS REPORT | Encounter Summary ---
Author Author [facility] Organization [facility] Address Unknown Phone Unavailable Care Team Providers Care Steel Inspector Name Role Phone PCP Unavailable Encounter Details Date Type Department Care Team Description 06/03/2017 Documentation [facility] Abel Poe MD Cancer Center - [facility] Exam [address] [facility] [address] [place] [address] [place] [address] [phone] Social History Tobacco Use Types Packs/Day Years [...] Maddi Cannon, TIMUR - 06/03/2017 3:37 PM LEGAL SPECIALIST Pt called stating she was seen at [facility] ER this weekend for kidney infection and [...]
--- OUTSIDE RECORDS SUMMARY | 2017-07-03 08:23 | XMS REPORT | Encounter Summary ---
Author Author [facility] Organization [facility] Address Unknown Phone Unavailable Care Team Providers Care Woolen Suiting Shrinker Name Role Phone PCP Unavailable Encounter Details Date Type Department Care Team Description 06/18/2017 Hospital [facility] Tyesha Sanchez MD Other chronic Encounter [address] pancreatitis (HCC) [place] [address] [address] [place], [place] [id number] Social History Tobacco Use Types Packs/Day Years [...] Component Value Ref Range PATHOLOGY REPORT [facility] [email or web address] Department of Pathology and Laboratory Medicine [address] [place] [address] Surgical Pathology Office: [phone] SURGICAL PATHOLOGY REPORT NAME: JAYLYN DELGADO SURG PATH #: [id number] MR #: [id number] SPECIMEN CLASS: SR BILLING #: [id number] ALT ID #: LOCATION: [facility] DATE OF PROCEDURE: 06/18/2017 AGE: 32 SEX: [...]
--- OUTSIDE RECORDS SUMMARY | 2017-07-03 08:23 | XMS REPORT | Encounter Summary ---
Author Author [facility] Organization [facility] Address Unknown Phone Unavailable Care Team Providers Care Wastewater Analyst Name Role Phone PCP Unavailable Reason for Visit * Reason Comments Follow-up Phone Call Encounter Details Date Type Department Care Team Description 06/19/[address] [facility] Randy Nunez MD Follow- up Phone Call Physicians - Internal [facility] Medicine [address] [place] [address] [place] [address] Social History Tobacco Use Types [...] Arleen Leone RN - 06/19/2017 2:51 PM BACK ROLL LATHE OPERATOR Message back to patient regarding Dr. Nunez's response. * Telephone Encounter - Randy Nunez MD - 06/19/2017 1:00 PM BACK ROLL LATHE OPERATOR Yes can be done locally, please have copy sent to us. Thanks * Telephone Encounter - Arleen Leone RN - 06/19/2017 9:26 AM BACK ROLL LATHE OPERATOR Patient calling today to inform did [...]
--- OUTSIDE RECORDS SUMMARY | 2017-07-03 08:23 | XMS REPORT | Encounter Summary ---
Author Author [facility] Organization [facility] Address Unknown Phone Unavailable Care Team Providers Care Executive Wellness Programs Director Name Role Phone PCP Unavailable Reason for Referral * Consult, Test & Treat (Routine) Status Reason Specialty Diagnoses / Referred By Referred To Procedures Contact Contact New Request Specialty Diagnoses Laura Nunez Mojtaba, Neli Padilla MD MD Required pancreatitis, [address] pancreatitis [place] [address] [place], [place] type ([place]CC) [place] [address] History of colon [address] Phone: polyps [phone] Scheduling Instructions Prep instructions given to patient during clinic. Reason for Visit * Reason Comments Pancreatitis Nausea Vomiting Polydipsia patient feels thirsty all the time Encounter Details Date Type Department Care Team Description 06/03/2017 Office Visit [facility] Randy Nunez MD Nausea and vomiting, Physicians - Internal [address] intractability of Medicine [place] [address] vomiting not specified, [address] [place] [address] [place] [address] (Primary Dx);Microcytic [phone] anemia;Fatigue, unspecified type;Weight gain;Chronic pancreatitis, unspecified pancreatitis [...] Taken Blood Pressure 129/78 06/03/2017 10:10 AM PARISH VISITOR Pulse 66 06/03/2017 10:10 AM PARISH VISITOR Temperature 36.6 C (97.8 F) 06/03/2017 10:10 AM PARISH VISITOR Respiratory Rate 14 06/03/2017 10:10 AM PARISH VISITOR Oxygen Saturation - - Inhaled Oxygen - - Concentration Weight 117.2 kg (258 lb 4.8 oz) 06/03/2017 10:10 AM PARISH VISITOR Height 160 cm (5' 3") 06/03/2017 10:10 AM PARISH VISITOR Body Mass Index 45.76 06/03/2017 10:10 AM PARISH VISITOR in this encounter Functional Status Functional Status [...] Randy Nunez MD - 06/03/2017 10:30 AM PARISH VISITOR You need to see a local Care Rep to review a gastroparetic diet Blood work today Schedule colonoscopy and EUS with Dr. Sanchez. Please follow your prep instructions. You will be contacted by Maggie to schedule or you may phone [phone], option 2 to schedule. Would like to see you back in approximate 3 months with Jessica Valera NP. in this encounter Progress Notes * Randy Nunez MD - 06/03/2017 10:30 AM PARISH VISITOR Formatting of this note may be different [...] NG/ML Specimen Performing Laboratory Blood MAIN LAB [address] [place], [place] [id number] * LIPASE (06/03/2017 11:28 AM) Component Value Ref Range Lipase 26 11 - 82 U/L Specimen Performing Laboratory Blood MAIN LAB [address] [place], [place] [id number] * AMYLASE (06/03/2017 11:28 AM) Component Value Ref Range Amylase 39 24 - 100 U/L Specimen Performing Laboratory Blood MAIN LAB [address] [place] [address] * IRON + BINDING CAPACITY + %SAT+ FERRITIN (06/03/2017 11:28 AM) Component Value Ref Range Iron 86 50 - 160 MCG/DL Iron Binding-TIBC 548 (H) 270 - 380 MCG/DL % Saturation 16 (L) 28 - 42 % Ferritin 60 10 - 200 NG/ML Specimen Performing Laboratory Blood MAIN LAB [address] [place] [address] * VITAMIN B12 (06/03/2017 11:28 AM) Component Value Ref Range Vitamin B12 185 180 - 914 PG/ML Specimen Performing Laboratory Blood MAIN LAB [address] [place] [address] * TSH WITH FREE T4 REFLEX (06/03/2017 11:28 AM) Component Value Ref Range TSH 1.708 0.35 - 5.00 MCU/ML Specimen Performing Laboratory Blood MAIN LAB [address] [place] [address] * CORTISOL-AM (06/03/2017 11:28 AM) Component Value Ref Range Cortisol-AM 10.2 6.7 - 22.6 MCG/DL Specimen Performing Laboratory Blood MAIN LAB [address] [place] [address] * COMPREHENSIVE METABOLIC PANEL (06/03/2017 11:28 AM) [...] Performing Laboratory Blood [facility] MAIN LAB [address] [place] [address] in this encounter Visit Diagnoses Diagnosis Nausea [...]
--- OUTSIDE RECORDS SUMMARY | 2017-07-03 08:24 | XMS REPORT | Encounter Summary ---
Author Author [facility] Organization [facility] Address Unknown Phone Unavailable Care Team Providers Care Hand Woodworking Sander Name Role Phone PCP Unavailable Reason for Visit * Reason Comments General Question Encounter Details Date Type Department Care Team Description 04/13/2017 Telephone [facility] Katharina Vann MD General Question Physicians - Urology [address] [facility] [address] [address] [address] [employer] [place] [phone] Social History Tobacco Use Types Packs/Day Years [...]
--- OUTSIDE RECORDS SUMMARY | 2017-07-03 08:24 | XMS REPORT | Encounter Summary ---
Author Author [facility] Organization [facility] Address Unknown Phone Unavailable Care Team Providers Care Carpenter'S Helper Name Role Phone PCP Unavailable Encounter Details Date Type Department Care Team Description 04/13/2017 Hospital [facility] Encounter Hospital Radiology [address] [place] [address] Social History Tobacco Use Types [...]
--- OUTSIDE RECORDS SUMMARY | 2017-07-03 08:24 | XMS REPORT | Encounter Summary ---
Author Author [facility] Organization [facility] Address Unknown Phone Unavailable Care Team Providers Care Feature Writer Name Role Phone PCP Unavailable Reason for Visit * Reason Comments Abdominal pain Encounter Details Date Type Department Care Team Description 04/17/2017 Telephone [facility] Abel Poe MD Abdominal pain [facility] Exam [address] [place] [address] [place] [address] [phone] Social History Tobacco Use Types Packs/Day Years [...]
--- OUTSIDE RECORDS SUMMARY | 2017-07-03 08:24 | XMS REPORT | Encounter Summary ---
Author Author [facility] Organization [facility] Address Unknown Phone Unavailable Care Team Providers Care Orthopedic Rn Name Role Phone PCP Unavailable Encounter Details Date Type Department Care Team Description 04/10/2017 Procedure Pass Main Operating Room [address] [place] [address] Social History Tobacco Use Types [...]
--- OUTSIDE RECORDS SUMMARY | 2017-07-03 08:24 | XMS REPORT | Encounter Summary ---
Author Author [facility] Organization [facility] Address Unknown Phone Unavailable Care Team Providers Care Winding Department Supervisor Name Role Phone PCP Unavailable Reason for Visit * Auth/Cert Status Reason Specialty Diagnoses / Referred By Referred To Procedures Contact Contact Diagnoses Renal mass unknown P rocedures NEPHRECTOMY LAPAROSCOPY Encounter Details Date Type Department Care Team Description 04/10/2017 Hospital Surg Onc/Uro/Events Assistant Onc Abel Heart MD Renal mass - Encounter [address] 04/11/2017 [place] [address] [address] [place], [place] [id number] Social History Tobacco Use Types Packs/Day Years [...] or concerns regarding your hospital stay. Call [phone] You may have questions about your hospital stay after you get home. From 8 AM to 4 PM Saturday through Saturday, please call Dr. Heart's secretary administrative assistant to have the nurse practitioner paged at . Dr. Heart's secretary administrative assistant can also assist with questions regarding your follow up appointment. If calling after hours or with urgent questions, please call and ask for the urology resident ornamental iron worker. In case of an emergency, please report to your nearest emergency department and contact us on the way. Discharging attending physician: ABEL HEART [[id number]] Regular Diet You have no dietary restriction. [...] Heart at 9:45 K[facility] Provider ABEL HEART [[id number]] Location [facility] Appointment date: 05/06/2017 Opioid (Narcotic) Safety [...] Scheduled appointments: May 06, 2017 9:00 AM BUS AND TROLLEY INSPECTING DISPATCHER (Arrive by 8:45 AM) Phlebotomy Draw with CC PHLEBOTOMY CHAIR [facility] - [facility] Exam (--) [address] [facility] [address] May 06, 2017 9:45 AM BUS AND TROLLEY INSPECTING DISPATCHER (Arrive by 9:30 AM) Post-Op with Abel Heart MD [facility] - [facility] Exam (--) [address] [facility] [address] Jun 03, 2017 10:30 AM BUS AND TROLLEY INSPECTING DISPATCHER Return Patient with Randy Nunez MD [facility] Physicians - Internal Medicine ([facility] Internal [facility]) [address] [facility] [address] [facility] [address] Pending items needing follow up: None Signed: [...] (Aleve) You may use acetaminophen (Tylenol) and Inman Morning of surgery On the morning of surgery, do NOT take these medications: Remaining vitamins/supplements Ointments/creams/lotions On the morning of surgery, take ONLY these medications with a sip (1-2 ounces) of water: Inman If needed Zofran if needed Other information Before surgery, please contact TIMUR Barajas with any medicine updates or questions. E-mail: [email or web address] Before going home from the hospital, please [...] [facility] [employer] [facility]. If you cannot obtain this soap, [...] and any other valuables at home. The [facility] is not responsible for the loss or breakage of personal items. Remove nail bahamian, makeup and all jewelry (including piercings) before coming to the hospital. The morning of your procedure: brush your teeth and tongue do not smoke do not shave the area where you will have surgery What to bring to the hospital ID/ Insurance Card Injection Press Operator card Official documents for legal guardianship Copy of your Living Will, Advanced Directives, and/or Durable Power of In Service Educator Small bag with a few personal belongings [...] call by 4:00 you may call or [phone] after 4:30. Notify us at [facility]: if you need to cancel your procedure if you are going to be late Arrival at the [facility]: Park in the [place] [facility] located directly across from the main entrance to the hospital. [employer] parking is available from 7 AM to [...] this time. Prescriptions given to pt by aPo Santillan NP. Both PIV's d /c. All [...] Vann MD PGY-1 Urology Please page urology ornamental iron worker with questions ATTESTATION I personally performed the [...] Intake/Output Summary (Last 24 hours) at 04/11/17 0555 Last data filed at 04/11/17 0328 Gross [...] Date: 04/10/2017 Guillermo AC=Airway clearance AM=Aerosolized medication BA=[place] aerosol DB&C=Deep breathe & cough FEV1=Forced expiratory volume in first second) IC=Inspiratory capacity LE=Lung expansion MDI=Metered dose inhaler Neb=Nebulizer O2=Oxygen Oxim=Oximetry PEFR=Peak expiratory flow rate YARD SWITCHER=Rapid Response Team * Venecia Wheeler RN - [...] for 7 days. May take Zofran and Inman day of surgery. NPO after 11:00 pm on the night before surgery. Pt verbalized instructions. Copy of instructions emailed to patient. in this encounter H&P Notes * Abel Heart MD - 04/10/2017 10:18 AM CDT Formatting of this note may be different from the original. History and Physical Update Note Name: Janeth eDlgado Allergies: Penicillins; Demerol (pf) [meperidine (pf)]; and [...] was induced. The patient was intubated. A 16-Chinese Romero catheter was placed per urethra under [...] Performing Laboratory Blood [facility] [address] [place] [address] * BASIC METABOLIC PANEL (04/11/2017 4:41 AM) [...] Performing Laboratory Blood [facility] [address] [place] [address] * SURGICAL PATHOLOGY (04/10/2017 3:00 PM) Component Value Ref Range PATHOLOGY REPORT [facility] [email or web address] Shaylee Black MD, PhD, Director of Anatomic Pathology Department of Pathology and Laboratory Medicine [address] [place] [address] Surgical Pathology Office: [phone] SURGICAL PATHOLOGY REPORT NAME: JANETH DELGADO SURG PATH #: [id number] MR #: [id number] SPECIMEN CLASS: SR BILLING #: [id number] ALT ID #: LOCATION: 53 DATE OF [...] status and/or prior pathology. Pursuant to the Commis Chef Program at the [facility] Pathology Department, selected slides from [...] is inked black. Lymph nodes identified: No Director Of Market Analysis sections of the specimen are submitted as follows: A1-A2 Vascular and ureteral margins. A3 Tumor to nearest capsule/Gerota's fascia including surrounding perinephric fat. A4 Tumor to adjacent normal kidney. A5 Tumor to renal pelvis. A6-A8 Tumor to renal sinus fat. ne/04/10/2017 Specimen Performing Laboratory [facility] RESULTS * BLOOD TYPE CONFIRMATION - ORDER ONLY IF REQUESTED BY LAB (04/10/2017 9:44 AM) Component Value Ref Range ABO/RH(D) A NEG Specimen Performing Laboratory Blood [facility] [address] [place] [address] * TYPE & CROSSMATCH (04/10/2017 9:29 AM) Component Value Ref Range Units Ordered 0 Crossmatch Expires 04/13/2017 Record Check 2ND TYPE REQUIRED ABO/RH(D) A NEG Antibody Screen NEG Electronic Crossmatch YES Specimen Performing Laboratory [facility] [address] [place] [address] * BASIC METABOLIC PANEL (04/10/2017 9:29 AM) [...] Performing Laboratory [facility] [address] [place] [address] * CBC (04/10/2017 9:29 AM) Component Value [...] Blood [facility] [address] [place] [address] in this encounter Visit Diagnoses Diagnosis Left [...]
--- OUTSIDE RECORDS SUMMARY | 2017-07-03 08:24 | XMS REPORT | Encounter Summary ---
Author Author [facility] Organization [facility] Address Unknown Phone Unavailable Care Team Providers Care Admissions Clinician Name Role Phone PCP Unavailable Reason for Visit * Reason Comments General Question Encounter Details Date Type Department Care Team Description 04/22/2017 Telephone [facility] Gricel Siegel MD General Question Physicians - Urology [address] [place] [address] MED [phone] [address] Social History Tobacco Use Types [...] Gricel Siegel MD - 04/22/2017 7:49 AM VENUE ATTENDANT Call back placed to patient. She is [...]
--- OUTSIDE RECORDS SUMMARY | 2017-07-03 08:24 | XMS REPORT | Encounter Summary ---
Author Author [facility] Organization [facility] Address Unknown Phone Unavailable Care Team Providers Care Jerker Name Role Phone PCP Unavailable Encounter Details Date Type Department Care Team Description 04/23/2017 Orders Only [facility] Abel Poe MD Renal mass (Primary Dx) [facility] Exam [address] [place] [address] [place] [address] [phone] Social History Tobacco Use Types Packs/Day Years [...]
--- OUTSIDE RECORDS SUMMARY | 2017-07-03 08:24 | XMS REPORT | Encounter Summary ---
Author Author [facility] Organization [facility] Address Unknown Phone Unavailable Care Team Providers Care Autocad Electrical Designer Name Role Phone PCP Unavailable Reason for Visit * Reason Comments Error Encounter Details Date Type Department Care Team Description 04/10/2017 Telephone [facility] Randy Recio MD Error Physicians - Urology [address] [facility] 2ND FLOOR POD [address] [place] [address] OFFICE BLDG [phone] [place] [address] Social History Tobacco Use [...]
--- OUTSIDE RECORDS SUMMARY | 2017-07-03 08:24 | XMS REPORT | Encounter Summary ---
Author Author [facility] Organization [facility] Address Unknown Phone Unavailable Care Team Providers Care Campus Supervisor Name Role Phone PCP Unavailable Reason for Visit * Reason Comments Abdominal pain Encounter Details Date Type Department Care Team Description 04/29/2017 Telephone [facility] Abel Poe MD Abdominal pain [facility] Exam [address] [place] [address] [place] [address] [phone] Social History Tobacco Use Types Packs/Day Years [...] Maddi Cannon RN - 04/29/2017 3:09 PM STUCCO LABORER Pt paged nurse with c/o sharp pain [...]
--- OUTSIDE RECORDS SUMMARY | 2017-07-03 08:24 | XMS REPORT | Encounter Summary ---
Author Author [facility] Organization [facility] Address Unknown Phone Unavailable Care Team Providers Care General Doc Name Role Phone PCP Unavailable Encounter Details Date Type Department Care Team Description 04/15/2017 Ancillary Rad Outpatient, Radiologist Diagnosis unknown Orders [address] [place], [place] [id number] Social History Tobacco Use Types Packs/Day Years [...]
--- OUTSIDE RECORDS SUMMARY | 2017-07-03 08:24 | XMS REPORT | Encounter Summary ---
Author Author [facility] Organization [facility] Address Unknown Phone Unavailable Care Team Providers Care Automobile Club Information Clerk Name Role Phone PCP Unavailable Reason for Visit * Reason Comments Results Encounter Details Date Type Department Care Team Description 04/15/2017 Telephone XDD UROLOGY Abel Poe MD Results [address] [place] [address] Social History Tobacco Use Types [...]
--- OUTSIDE RECORDS SUMMARY | 2017-07-03 08:25 | XMS REPORT | Encounter Summary ---
Author Author [facility] Organization [facility] Address Unknown Phone Unavailable Care Team Providers Care Oil Laboratory Analyst Name Role Phone PCP Unavailable Reason for Visit * Auth/Cert Status Reason Specialty Diagnoses / Referred By Referred To Procedures Contact Contact Diagnoses Renal mass unknown P rocedures NEPHRECTOMY LAPAROSCOPY Encounter Details Date Type Department Care Team Description 04/10/2017 Anesthesia Main Operating Room Tiarra ParvezMONIE [address] [place] [address] Social History Tobacco Use Types [...] injury, allergic reactions, PONV, aspiration, respiratory failure, [place], CVA discussed with patient who reports understanding and consents to anesthetic plan. Araseli Kuhn M.D. ) Informed Consent Anesthetic plan and risks discussed with patient and mother. Use of blood products discussed with patient; consented to blood products. Plan discussed with: anesthesiologist, surgeon/proceduralist, COURTESY BOOTH CASHIER and SRNA. in this encounter Miscellaneous Notes [...]
--- OUTSIDE RECORDS SUMMARY | 2017-07-03 08:25 | XMS REPORT | Encounter Summary ---
Author Author [facility] Organization [facility] Address Unknown Phone Unavailable Care Team Providers Care Air Pollution Specialist Name Role Phone PCP Unavailable Reason for Visit * Auth/Cert Status Reason Specialty Diagnoses / Referred By Referred To Procedures Contact Contact Diagnoses Renal mass unknown P rocedures NEPHRECTOMY LAPAROSCOPY Encounter Details Date Type Department Care Team Description 04/10/2017 Surgery Main Operating Room Abel Heart MD NEPHRECTOMY LAPAROSCOPY [address] [place] [address] [address] [place] [address] Social History Tobacco Use Types [...] 04/10/2017 Discharge date: 04/11/2017 Attending Physician: Dr. Herat Service: Surgery-Urology Physician Summary completed by: Randy [...] or concerns regarding your hospital stay. Call [phone] You may have questions about your hospital stay after you get home. From 8 AM to 4 PM Saturday through Saturday, please call Dr. Heart's confidential secretary to have the nurse practitioner paged at . Dr. Herat's confidential secretary can also assist with questions regarding your follow up appointment. If calling after hours or with urgent questions, please call and ask for the urology resident credit and loan collections supervisor. In case of an emergency, please report to your nearest emergency department and contact us on the way. Discharging attending physician: ABEL HEART [[id number]] Regular Diet You have no dietary restriction. [...] Dr. Heart at 9:45 Provider ABEL HEART [[id number]] Location [facility] Appointment date: 05/06/2017 Opioid (Narcotic) Safety Information [...] Scheduled appointments: May 06, 2017 9:00 AM WEIGHTER (Arrive by 8:45 AM) Phlebotomy Draw with CC PHLEBOTOMY CHAIR [facility] - WW Exam (--) [address] [facility] [address] May 06, 2017 9:45 AM WEIGHTER (Arrive by 9:30 AM) Post-Op with Abel Heart MD [facility] - WW Exam (--) [address] [facility] [address] Jun 03, 2017 10:30 AM WEIGHTER Return Patient with Randy Nunez MD [facility] Physicians - Internal Medicine ([facility] Internal [facility]) [address] [facility] [address] Pending items needing follow up: None Signed: [...] (Aleve) You may use acetaminophen (Tylenol) and Lincoln Morning of surgery On the morning of surgery, do NOT take these medications: Remaining vitamins/supplements Ointments/creams/lotions On the morning of surgery, take ONLY these medications with a sip (1-2 ounces) of water: Lincoln If needed Zofran if needed Other information Before surgery, please contact TIMUR Barajas with any medicine updates or questions. E-mail: [email or web address] Before going home from the [...] bring to the hospital ID/ Insurance Card Machine Group Leader card Official documents for legal guardianship Copy of your Living Will, Advanced Directives, and/or Durable Power of Museum Service Scheduler Small bag with a few personal belongings [...] call by 4:00 you may call or [phone] after 4:30. Notify us at [facility]: if you need to cancel your procedure if you are going to be late Arrival at the [facility]: Park in the [place] [facility]ing [facility]age located directly across from the main entrance to the hospital. [employer] parking is available from 7 AM to [...] Vann MD PGY-1 Urology Please page urology credit and loan collections supervisor with questions ATTESTATION I personally performed the [...] Intake/Output Summary (Last 24 hours) at 04/11/17 7026 Last data filed at 04/11/17327 Gross per [...] *Higher points indicate higher acuity. Therapist: Mariana Glalo, RT Date: 04/10/2017 Guillermo AC=Airway clearance AM=Aerosolized medication BA=[place] aerosol DB&C=Deep breathe & cough FEV1=Forced expiratory volume in first second) IC=Inspiratory capacity LE=Lung expansion MDI=Metered dose inhaler Neb=Nebulizer O2=Oxygen Oxim=Oximetry PEFR=Peak expiratory flow rate PREP ROOM SUPERVISOR=Rapid Response Team * Venecia Wheeler RN - [...] for 7 days. May take Zofran and Lincoln day of surgery. NPO after 11:00 pm [...] was induced. The patient was intubated. A 16-New Zealander Romero catheter was placed per urethra under [...] Left SURGICAL PATHOLOGY Abel Heart MD 04/10/2017 2282 Randy Recio MD ATTESTATION I performed this [...] Performing Laboratory Blood [facility] [address] [place] [address] * BASIC METABOLIC PANEL (04/11/2017 4:41 AM) [...] Performing Laboratory Blood [facility] [address] [place] [address] * SURGICAL PATHOLOGY (04/10/2017 3:00 PM) Component Value Ref Range PATHOLOGY REPORT [facility] www.[employer] Shaylee Black MD, PhD, Director of Anatomic Pathology Department of Pathology and Laboratory Medicine [address] [place] [address] Surgical Pathology Office: [phone] SURGICAL PATHOLOGY REPORT NAME: JANETH DELGADO SURG PATH #: [id number] MR #: [id number] SPECIMEN CLASS: SR BILLING #: [id number] ALT ID #: LOCATION: 53 DATE OF [...] status and/or prior pathology. Pursuant to the Aerospace Products Sales Engineer Program at the [facility] Pathology [...] is inked black. Lymph nodes identified: No Seamless Hosiery Knitter sections of the specimen are submitted as follows: A1-A2 Vascular and ureteral margins. A3 Tumor to nearest capsule/Gerota's fascia including surrounding perinephric fat. A4 Tumor to adjacent normal kidney. A5 Tumor to renal pelvis. A6-A8 Tumor to renal sinus fat. la/04/10/2017 Specimen Performing Laboratory [facility] RESULTS * BLOOD TYPE CONFIRMATION - ORDER ONLY IF REQUESTED BY LAB (04/10/2017 9:44 AM) Component Value Ref Range ABO/RH(D) A NEG Specimen Performing Laboratory [facility] [address] [place] [address] * TYPE & CROSSMATCH (04/10/2017 9:29 AM) Component Value Ref Range Units Ordered 0 Crossmatch Expires 04/13/2017 Record Check 2ND TYPE REQUIRED ABO/RH(D) A NEG Antibody Screen NEG Electronic Crossmatch YES Specimen Performing Laboratory [facility] [address] [place] [address] * BASIC METABOLIC PANEL (04/10/2017 9:29 AM) [...] Specimen Performing Laboratory [facility] [address] [place] [address] * CBC (04/10/2017 9:29 AM) Component Value [...] Performing Laboratory Blood [facility] [address] [place] [address] in this encounter Visit Diagnoses Diagnosis Renal [...]
--- OUTSIDE RECORDS SUMMARY | 2017-07-03 08:55 | XMS REPORT | Continuity of Care Document ---
Author Author [facility] of [facility] of [facility] Address Unknown Phone Unavailable Allergies Active Description Code Type Severity Reaction Onset Reported/Identified Relationship to Patient Clinical Status Yes Demerol Drug Allergy N/A N/A 08/04/2008 Yes fentanyl Drug Allergy N/A N/A 08/04/2008 Yes Penicillins Drug Allergy N/A N/A 08/04/2008 Yes Demerol Drug Allergy 08/04/2008 Yes fentanyl Drug Allergy 08/04/2008 Yes Penicillins Drug Allergy 08/04/2008 Yes fentanyl [id number] Drug Allergy Unknown N/A 05/23/2016 Yes meperidine [id number] Drug Allergy Unknown N/A 05/23/2016 Yes penicillin G [id number] Drug Allergy Unknown N/A 05/23/2016 Medications There [...] DO, EMIL K 784.0 Headache 08/04/2008 KIM ELEVATOR CONSTRUCTOR SUPERVISOR, OSMAN T 577.9 PANCREATITIS 08/04/2008 KIM ELEVATOR CONSTRUCTOR SUPERVISOR, OSMAN T 780.79 FATIGUE 08/04/2008 KIM ELEVATOR CONSTRUCTOR SUPERVISOR OSMAN T 784.0 Headache 08/04/2008 ROLON DO, EMIL K 577.9 PANCREATITIS 08/04/2008 ROLON DO, EMIL K 780.79 FATIGUE 08/04/2008 ROLON DO, EMIL K 784.0 Headache 08/04/2008 ROLON DO, EMIL K 577.9 PANCREATITIS 08/04/2008 ROLON DO, EMIL K 780.79 FATIGUE 08/04/2008 ROLON DO, EMIL K 784.0 Headache 08/04/2008 LUIS ALFREDO ELEVATOR CONSTRUCTOR SUPERVISOR, BRENNA R 577.9 PANCREATITIS 08/04/2008 LUIS ALFREDO ELEVATOR CONSTRUCTOR SUPERVISOR, BRENNA R 780.79 FATIGUE 08/04/2008 LUIS ALFREDO ELEVATOR CONSTRUCTOR SUPERVISOR, BRENNA R 784.0 Headache 08/04/2008 MAD ELEVATOR CONSTRUCTOR SUPERVISOR, ANSON L 577.9 PANCREATITIS 08/04/2008 MAD ELEVATOR CONSTRUCTOR SUPERVISOR, ANSON L 780.79 FATIGUE 08/04/2008 MAD ELEVATOR CONSTRUCTOR SUPERVISOR, ANSON L 784.0 Headache 08/04/2008 LUIS ALFREDO YUN, BRENNA R 577.9 PANCREATITIS 08/04/2008 LUIS ALFREDO ELEVATOR CONSTRUCTOR SUPERVISOR, BRENNA R 780.79 FATIGUE 08/04/2008 LUIS ALFREDO YUN, BRENNA R 784.0 Headache 08/04/2008 SAI PARISH, CARMEN N 577.9 PANCREATITIS 08/04/2008 CARMEN GIBBS MD N 780.79 FATIGUE 08/04/2008 CARMEN GIBBS MD N 784.0 Headache 08/04/2008 ROLON DO, EMIL K 577.9 PANCREATITIS 08/04/2008 ROLON DO, EMIL K 780.79 FATIGUE 08/04/2008 ROLON DO, EMIL K 784.0 Headache 08/04/2008 MICHELINE ELEVATOR CONSTRUCTOR SUPERVISOR, RAQUEL R 577.9 PANCREATITIS 08/04/2008 MICHELINE ELEVATOR CONSTRUCTOR SUPERVISOR, RAQUEL R 780.79 FATIGUE 08/04/2008 MICHELINE ELEVATOR CONSTRUCTOR SUPERVISOR, RAQUEL R 784.0 Headache 08/04/2008 CARMEN GIBBS MD N 577.9 PANCREATITIS 08/04/2008 CARMEN GIBBS MD N 780.79 FATIGUE 08/04/2008 CARMEN GIBBS MD N 784.0 Headache 08/04/2008 LOBATO ELEVATOR CONSTRUCTOR SUPERVISOR, BRENNA R 577.9 PANCREATITIS 08/04/2008 LOBATO ELEVATOR CONSTRUCTOR SUPERVISOR, BRENNA R 780.79 FATIGUE 08/04/2008 LOBATO ELEVATOR CONSTRUCTOR SUPERVISOR, BRENNA R 784.0 Headache 08/04/2008 MICHELINE ELEVATOR CONSTRUCTOR SUPERVISOR, RAQUEL R 577.9 PANCREATITIS 08/04/2008 MICHELINE ELEVATOR CONSTRUCTOR SUPERVISOR, RAQUEL R 780.79 FATIGUE 08/04/2008 MICHELINE ELEVATOR CONSTRUCTOR SUPERVISOR, RAQUEL R 784.0 Headache 08/04/2008 CARMEN IGBBS MD N 577.9 PANCREATITIS 08/04/2008 CARMEN GIBBS MD N 780.79 FATIGUE 08/04/2008 CARMEN GIBBS MD N 784.0 Headache 08/04/2008 MADL ELEVATOR CONSTRUCTOR SUPERVISOR, ANSON L 577.9 PANCREATITIS 08/04/2008 MADL ELEVATOR CONSTRUCTOR SUPERVISOR, ANSON L 780.79 FATIGUE 08/04/2008 MADL ELEVATOR CONSTRUCTOR SUPERVISOR, ANSON L 784.0 Headache 08/04/2008 MADL ELEVATOR CONSTRUCTOR SUPERVISOR, ANSON L 577.9 PANCREATITIS 08/04/2008 MADL ELEVATOR CONSTRUCTOR SUPERVISOR, ANSON L 780.79 FATIGUE 08/04/2008 MADL ELEVATOR CONSTRUCTOR SUPERVISOR, ANSON L 784.0 Headache 08/04/2008 MICHELINE ELEVATOR CONSTRUCTOR SUPERVISOR, RAQUEL R 577.9 PANCREATITIS 08/04/2008 MICHELINE ELEVATOR CONSTRUCTOR SUPERVISOR, RAQUEL R 780.79 FATIGUE 08/04/2008 MICHELINE ELEVATOR CONSTRUCTOR SUPERVISOR, RAQUEL R 784.0 Headache 08/04/2008 WHITE DDS, [...] DO, EMIL K 784.0 Headache 08/04/2008 MADL ELEVATOR CONSTRUCTOR SUPERVISOR, ANSON L 577.9 PANCREATITIS 08/04/2008 MADL ELEVATOR CONSTRUCTOR SUPERVISOR, ANSON L 780.79 FATIGUE 08/04/2008 MADL ELEVATOR CONSTRUCTOR SUPERVISOR, ANSON L 784.0 Headache 08/04/2008 CARMEN GIBBS MD N 577.9 PANCREATITIS 08/04/2008 CARMEN GIBBS MD N 780.79 FATIGUE 08/04/2008 CARMEN GIBBS MD N 784.0 Headache 08/04/2008 CARMEN GIBBS MD N 577.9 PANCREATITIS 08/04/2008 CARMEN GIBBS MD N 780.79 FATIGUE 08/04/2008 CARMEN GIBBS MD N 784.0 Headache 08/04/2008 MADL ELEVATOR CONSTRUCTOR SUPERVISOR, ANSON L 577.9 PANCREATITIS 08/04/2008 MADL ELEVATOR CONSTRUCTOR SUPERVISOR, ANSON L 780.79 FATIGUE 08/04/2008 MADL ELEVATOR CONSTRUCTOR SUPERVISOR, ANSON L 784.0 Headache 08/04/2008 GONZALES GAMING EMIL K 577.9 PANCREATITIS 08/04/2008 SUDHIR ROLON DOA K 780.79 FATIGUE 08/04/2008 SUDHIR ROLON DOA K 784.0 Headache 12/20/2008 REGINO BOYD DDS 794.6 Endocrine Laboratory Tests Nonspecific [...] BAUMANN, BRENNA R 493.90 ASTHMA 03/31/2009 MICHELINE ELEVATOR CONSTRUCTOR SUPERVISOR, RAQUEL R 493.90 ASTHMA 03/31/2009 CARMEN GIBBS MD N 493.90 ASTHMA 03/31/2009 MADL ELEVATOR CONSTRUCTOR SUPERVISOR, ANSON L 493.90 ASTHMA 03/31/2009 MADL ELEVATOR CONSTRUCTOR SUPERVISOR, ANSON L 493.90 ASTHMA 03/31/2009 MICHELINE ELEVATOR CONSTRUCTOR SUPERVISOR, RAQUEL R 493.90 ASTHMA 03/31/2009 JOSH VILLAVICENCIO, ELLIOT Alston 493.90 ASTHMA 03/31/2009 SAI [place]ISH, CARMEN N 493.90 ASTHMA 03/31/2009 SUDHIR ROLON DOA K 493.90 ASTHMA 03/31/2009 MADBenji ELEVATOR CONSTRUCTOR SUPERVISOR, ANSON L 493.90 ASTHMA 03/31/2009 CARMEN GIBBS MD N 493.90 ASTHMA 03/31/2009 CARMEN GIBBS MD N 493.90 ASTHMA 03/31/2009 MADL ELEVATOR CONSTRUCTOR SUPERVISOR, ANSON L 493.90 ASTHMA 03/31/2009 SUDHIR ROLON [...] Screening Examination For Pulmonary Tuberculosis 04/25/2009 SHERI ELEVATOR CONSTRUCTOR SUPERVISOR, ANSON L V74.1 Screening Examination For Pulmonary [...] RAQUEL R 112.0 Candidiasis Oral Thrush 04/26/2009 CAREMN GIBBS MD N 112.0 Candidiasis Oral Thrush 04/26/2009 BRENNA LOBATO APRN R 112.0 Candidiasis Oral Thrush 04/26/2009 MICHELINE BAUMANN RAQUEL R 112.0 Candidiasis Oral Thrush 04/26/2009 CARMEN GIBBS MD N 112.0 Candidiasis Oral Thrush 04/26/2009 MADL ELEVATOR CONSTRUCTOR SUPERVISOR, ANSON L 112.0 Candidiasis Oral Thrush 04/26/2009 MADL ELEVATOR CONSTRUCTOR SUPERVISOR, ANSON L 112.0 Candidiasis Oral Thrush 04/26/2009 [...] The Central Upper Belly (epigastric) 05/24/2009 RAQUEL LOEPZ DDS 789.06 Abdominal Pain In The Central [...] WADE APRN 597.80 Urethritis, Unspecified 09/05/2009 LOBATO ELEVATOR CONSTRUCTOR SUPERVISOR, BRENNA R 597.80 Urethritis, Unspecified 09/05/2009 SAI [place], CARMEN N 597.80 Urethritis, Unspecified 09/05/2009 ROLON DO, EMIL K 597.80 Urethritis, Unspecified 09/05/2009 MICHELINE ELEVATOR CONSTRUCTOR SUPERVISOR, RAQUEL R 597.80 Urethritis, Unspecified 09/05/2009 SAI [place], CARMEN N 597.80 Urethritis, Unspecified 09/05/2009 CRISTINO LOBATO APRNIA R 597.80 Urethritis, Unspecified 09/05/2009 MICHELINE ELEVATOR CONSTRUCTOR SUPERVISOR, RAQUEL R 597.80 Urethritis, Unspecified 09/05/2009 [place], CARMEN N 597.80 Urethritis, Unspecified 09/05/2009 MADL ELEVATOR CONSTRUCTOR SUPERVISOR, ANSON L 597.80 Urethritis, Unspecified 09/05/2009 MADL ELEVATOR CONSTRUCTOR SUPERVISOR, ANSON L 597.80 Urethritis, Unspecified 09/05/2009 MICHELINE ELEVATOR CONSTRUCTOR SUPERVISOR, RAQUEL R 597.80 Urethritis, Unspecified 09/05/2009 JOSH VILLAVICENCIO, ELLIOT Alston 597.80 Urethritis, Unspecified 09/05/2009 [place], CARMEN N 597.80 Urethritis, Unspecified 09/05/2009 GONZALES GAMING, EMIL K 597.80 Urethritis, Unspecified 09/05/2009 MADBenji ELEVATOR CONSTRUCTOR SUPERVISOR, ANSON L 597.80 Urethritis, Unspecified 09/05/2009 [place], CARMEN N 597.80 Urethritis, Unspecified 09/05/2009 [place], CARMEN N 597.80 Urethritis, Unspecified 09/05/2009 MADL ELEVATOR CONSTRUCTOR SUPERVISOR, ANSON L 597.80 Urethritis, Unspecified 09/05/2009 ROLON [...] Pain In Joint, Lower Leg 09/24/2009 MADL ELEVATOR CONSTRUCTOR SUPERVISOR, ANSON L 719.46 Pain In Joint, Lower Leg 09/24/2009 MADL ELEVATOR CONSTRUCTOR SUPERVISOR, ANSON L 719.46 Pain In Joint, Lower [...] Ot 717.7 11/18/2009 Ot V57.1 12/20/2009 DEB VILLAVICENCIO, REGINO N 704.8 Folliculitis 12/20/2009 704.8 Folliculitis [...] GIBBS MD N 704.8 Folliculitis 12/20/2009 MADBenji ELEVATOR CONSTRUCTOR SUPERVISOR, ANSON L 704.8 Folliculitis 12/20/2009 JOSE FRANCISCOL [...] RAQUEL Galdamez 709.9 Dermatology - Non-infectious 02/03/2010 ROOLN DO, EMIL K 709.9 Dermatology - Non-infectious [...] N 709.9 Dermatology - Non-infectious 02/03/2010 MADL ELEVATOR CONSTRUCTOR SUPERVISOR, ANSON L 709.9 Dermatology - Non-infectious 02/03/2010 MADL ELEVATOR CONSTRUCTOR SUPERVISOR, ANSON L 709.9 Dermatology - Non-infectious 02/03/2010 MICHELINE ELEVATOR CONSTRUCTOR SUPERVISOR, RAQUEL R 709.9 Dermatology - Non-infectious 02/03/2010 JOSH JETERS, ELLIOT J 709.9 Dermatology - Non-infectious 02/03/2010 SAI [place], CARMEN N 709.9 Dermatology - Non-infectious 02/03/2010 ROLON , EMIL K 709.9 Dermatology - Non-infectious 02/03/2010 MADBenji ELEVATOR CONSTRUCTOR SUPERVISOR, ANSON L 709.9 Dermatology - Non-infectious 02/03/2010 SAI [place], CARMEN N 709.9 Dermatology - Non-infectious 02/03/2010 SAI [place], CARMEN N 709.9 Dermatology - Non-infectious 02/03/2010 SHERI ELEVATOR CONSTRUCTOR SUPERVISOR, ANSON L 709.9 Dermatology - Non-infectious 02/03/2010 [...] BAUMANN, BRENNA R 276.5 DEHYDRATION 02/08/2010 MADL ELEVATOR CONSTRUCTOR SUPERVISOR, ANSON L 276.5 DEHYDRATION 02/08/2010 LUIS ALFREDO BAUMANN, BRENNA R 276.5 DEHYDRATION 02/08/2010 CARMEN GIBBS MD N 276.5 DEHYDRATION 02/08/2010 ROLON DO, EMIL K 276.5 DEHYDRATION 02/08/2010 MICHELINE BAUMANN, RAQUEL R 276.5 DEHYDRATION 02/08/2010 CARMEN GIBBS MD N 276.5 DEHYDRATION 02/08/2010 CRISTINO LOBATO APRNIA R 276.5 DEHYDRATION 02/08/2010 MICHELINE BAUMANN, RAQUEL R 276.5 DEHYDRATION 02/08/2010 CARMEN GIBBS MD N 276.5 DEHYDRATION 02/08/2010 SHERI ELEVATOR CONSTRUCTOR SUPERVISOR, ANSON L 276.5 DEHYDRATION 02/08/2010 MADBenji ELEVATOR CONSTRUCTOR SUPERVISOR, ANSON L 276.5 DEHYDRATION 02/08/2010 MICHELINE ELEVATOR CONSTRUCTOR SUPERVISOR, RAQUEL R 276.5 DEHYDRATION 02/08/2010 ELLIOT MORENO [...] EMIL K 788.31 Urge Incontinence 05/22/2010 MICHELINE ELEVATOR CONSTRUCTOR SUPERVISOR, RAQUEL R 788.31 Urge Incontinence 05/22/2010 CARMEN GIBBS MD N 788.31 Urge Incontinence 05/22/2010 CRISTINO LOBATO APRNIA R 788.31 Urge Incontinence 05/22/2010 MICHELINE ELEVATOR CONSTRUCTOR SUPERVISOR, RAQUEL R 788.31 Urge Incontinence 05/22/2010 CARMEN GIBBS MD N 788.31 Urge Incontinence 05/22/2010 MADL ELEVATOR CONSTRUCTOR SUPERVISOR, ANSON L 788.31 Urge Incontinence 05/22/2010 MADL ELEVATOR CONSTRUCTOR SUPERVISOR, ANSON L 788.31 Urge Incontinence 05/22/2010 MICHELINE [...] 786.05 Shortness Of Breath 08/03/2010 KIM BAUMANN SOMAN T 786.05 Shortness Of Breath 08/03/2010 ROLON [...] DO, EMIL K 706.8 Xerosis 08/22/2010 KIM ELEVATOR CONSTRUCTOR SUPERVISOR, OSMAN T 272.4 HYPERLIPIDEMIA 08/22/2010 KIM ELEVATOR CONSTRUCTOR SUPERVISOR OSMAN T 706.8 Xerosis 08/22/2010 ROLON DO, EMIL K 272.4 HYPERLIPIDEMIA 08/22/2010 ROLON DO, EMIL K 706.8 Xerosis 08/22/2010 ROLON DO, EMIL K 272.4 HYPERLIPIDEMIA 08/22/2010 ROLON DO, EMIL K 706.8 Xerosis 08/22/2010 LUIS ALFREDO ELEVATOR CONSTRUCTOR SUPERVISOR, BRENNA R 272.4 HYPERLIPIDEMIA 08/22/2010 LOBATO ELEVATOR CONSTRUCTOR SUPERVISOR, BRENNA R 706.8 Xerosis 08/22/2010 MADL ELEVATOR CONSTRUCTOR SUPERVISOR, ANSON L 272.4 HYPERLIPIDEMIA 08/22/2010 MADL ELEVATOR CONSTRUCTOR SUPERVISOR, ANSON L 706.8 Xerosis 08/22/2010 LUIS ALFREDO [...] GIBBS MD N 706.8 Xerosis 08/22/2010 MADL ELEVATOR CONSTRUCTOR SUPERVISOR, ANSON L 272.4 HYPERLIPIDEMIA 08/22/2010 MADL ELEVATOR CONSTRUCTOR SUPERVISOR, ANSON L 706.8 Xerosis 08/22/2010 MADL ELEVATOR CONSTRUCTOR SUPERVISOR, ANSON L 272.4 HYPERLIPIDEMIA 08/22/2010 MADL ELEVATOR CONSTRUCTOR SUPERVISOR, ANSON L 706.8 Xerosis 08/22/2010 MICHELINE ELEVATOR CONSTRUCTOR SUPERVISOR, RAQUEL R 272.4 HYPERLIPIDEMIA 08/22/2010 MICHELINE ELEVATOR CONSTRUCTOR SUPERVISOR, RAQUEL R 706.8 Xerosis 08/22/2010 WHITE DDS, ELLIOT J 272.4 HYPERLIPIDEMIA 08/22/2010 WHITE DDS, ELLIOT J 706.8 Xerosis 08/22/2010 CARMEN GIBBS MD N 272.4 HYPERLIPIDEMIA 08/22/2010 CARMEN GIBBS MD N 706.8 Xerosis 08/22/2010 ROLON DO, EMIL K 272.4 HYPERLIPIDEMIA 08/22/2010 ROLON DO, EMIL K 706.8 Xerosis 08/22/2010 MADL ELEVATOR CONSTRUCTOR SUPERVISOR, ANSON L 272.4 HYPERLIPIDEMIA 08/22/2010 MADL ELEVATOR CONSTRUCTOR SUPERVISOR, ANSON L 706.8 Xerosis 08/22/2010 CARMEN GIBBS MD N 272.4 HYPERLIPIDEMIA 08/22/2010 CARMEN GIBBS MD N 706.8 Xerosis 08/22/2010 CARMEN GIBBS MD N 272.4 HYPERLIPIDEMIA 08/22/2010 CARMEN GIBBS MD N 706.8 Xerosis 08/22/2010 [facility] ELEVATOR CONSTRUCTOR SUPERVISOR, ANSON L 272.4 HYPERLIPIDEMIA 08/22/2010 MADL ELEVATOR CONSTRUCTOR SUPERVISOR, ANSON L 706.8 Xerosis 08/22/2010 ROLON DO, [...] AND GIDDINESS 09/16/2010 Ot 784.0 HEADACHE 09/20/2010 RGEINO BOYD DDS 787.01 Nausea With Vomiting 09/20/2010 787.01 [...] K 787.01 Nausea With Vomiting 09/20/2010 MALACHI TOBIAS APRNINA R 787.01 Nausea With Vomiting 09/20/2010 [...] BRENNA R 577.1 CHRONIC PANCREATITIS 09/28/2010 SHERI ELEVATOR CONSTRUCTOR SUPERVISOR, ANSON L 577.1 CHRONIC PANCREATITIS 09/28/2010 LUIS ALFREDO BAUMANN BRENNA R 577.1 CHRONIC PANCREATITIS 09/28/2010 CARMEN GIBBS MD 577.1 CHRONIC PANCREATITIS 09/28/2010 ROLON DO, EMIL K 577.1 CHRONIC PANCREATITIS 09/28/2010 MICHELINE BAUMANN, RAQUEL R 577.1 CHRONIC PANCREATITIS 09/28/2010 CARMEN GIBBS MD 577.1 CHRONIC PANCREATITIS 09/28/2010 LUIS ALFREDO BAUMANN BRENNA R 577.1 CHRONIC PANCREATITIS 09/28/2010 MICHELINE BAUMANN, RAQUEL R 577.1 CHRONIC PANCREATITIS 09/28/2010 CARMNE GIBBS MD 577.1 CHRONIC PANCREATITIS 09/28/2010 SHERI ELEVATOR CONSTRUCTOR SUPERVISOR, ANSON L 577.1 CHRONIC PANCREATITIS 09/28/2010 JOSE FRANCISCOL ELEVATOR CONSTRUCTOR SUPERVISOR, ANSON L 577.1 CHRONIC PANCREATITIS 09/28/2010 MICHELINE [...] DO, EMIL K 782.3 Edema 10/25/2010 MICHELINE BAUMANN, RAQUEL R 782.3 Edema 10/25/2010 CARMEN GIBBS MD N 782.3 Edema 10/25/2010 CRISTINO LOBATO APRNIA R 782.3 Edema 10/25/2010 MICHELINE BAUMANN RAQUEL R 782.3 Edema 10/25/2010 CARMEN GBIBS MD N 782.3 Edema 10/25/2010 LETICIA WADE [...] DO, EMIL K 599.70 Hematuria Unspecified 12/27/2010 ROOLN DO, EMIL K 789.01 Abdominal Pain Right [...] Abdominal Pain Right Upper Quadrant 12/27/2010 SHERI ELEVATOR CONSTRUCTOR SUPERVISOR, ANSON L 599.70 Hematuria Unspecified 12/27/2010 MADBenji ELEVATOR CONSTRUCTOR SUPERVISOR, ANSON L 789.01 Abdominal Pain Right Upper Quadrant 12/27/2010 SHERI BAUMANN, ANSON L 599.70 Hematuria Unspecified 12/27/2010 SHERI ELEVATOR CONSTRUCTOR SUPERVISOR, ANSON L 789.01 Abdominal Pain Right Upper [...] K 599.70 Hematuria Unspecified 12/27/2010 ROLON DO EMLI K 789.01 Abdominal Pain Right Upper Quadrant 12/27/2010 CINTHIA WADE APRNWNYA L 599.70 Hematuria Unspecified 12/27/2010 MADL ELEVATOR CONSTRUCTOR SUPERVISOR, ANSON L 789.01 Abdominal Pain Right Upper Quadrant 12/27/2010 CARMEN GIBBS MD N 599.70 Hematuria Unspecified 12/27/2010 CARMEN GIBBS MD N 789.01 Abdominal Pain Right Upper Quadrant 12/27/2010 CARMEN GIBBS MD N 599.70 Hematuria Unspecified 12/27/2010 CARMEN GIBBS MD 789.01 Abdominal Pain Right Upper Quadrant 12/27/2010 MADL ELEVATOR CONSTRUCTOR SUPERVISOR, ANSON L 599.70 Hematuria Unspecified 12/27/2010 MADL ELEVATOR CONSTRUCTOR SUPERVISOR, ANSON L 789.01 Abdominal Pain Right Upper [...] MD 786.52 Chest Wall Pain 01/11/2011 OSMAN ALAVREZ APRN 786.52 Chest Wall Pain 01/11/2011 ROLON [...] R 786.52 Chest Wall Pain 01/11/2011 MADL ELEVATOR CONSTRUCTOR SUPERVISOR, ANSON L 786.52 Chest Wall Pain 01/11/2011 [...] MD 786.52 Chest Wall Pain 01/11/2011 SHERI ELEVATOR CONSTRUCTOR SUPERVISOR, ANSON L 786.52 Chest Wall Pain 01/11/2011 SHERI ELEVATOR CONSTRUCTOR SUPERVISOR, ANSON L 786.52 Chest Wall Pain 01/11/2011 MICHELINE BAUMANN RAQUEL R 786.52 Chest Wall Pain 01/11/2011 WHITE DDS, ELLIOT J 786.52 Chest Wall Pain 01/11/2011 CARMEN GIBBS MD 786.52 Chest Wall Pain 01/11/2011 ROLON DO, EMIL K 786.52 Chest Wall Pain 01/11/2011 MADBenji ELEVATOR CONSTRUCTOR SUPERVISOR, ANSON L 786.52 Chest Wall Pain 01/11/2011 CARMEN GIBBS MD 786.52 Chest Wall Pain 01/11/2011 CARMEN GIBBS MD 786.52 Chest Wall Pain 01/11/2011 MADL ELEVATOR CONSTRUCTOR SUPERVISOR, ANSON L 786.52 Chest Wall Pain 01/11/2011 [...] CARMEN GIBBS MD 780.52 INSOMNIA UNSPECIFIED 01/15/2011 SOMAN ALVAREZ APRN 564.00 Constipation 01/15/2011 OSMAN ALVAREZ [...] APRNIA R 780.52 INSOMNIA UNSPECIFIED 01/15/2011 MADBenji ELEVATOR CONSTRUCTOR SUPERVISORLETICIA ChristieA L 564.00 Constipation 01/15/2011 JOSE FRANCISCO ELEVATOR CONSTRUCTOR SUPERVISOR, ANSON L 780.52 INSOMNIA UNSPECIFIED 01/15/2011 CRISTINO OLBATO APRNIA R 564.00 Constipation 01/15/2011 CRISTINO LOBATO [...] GIBBS MD 780.52 INSOMNIA UNSPECIFIED 01/15/2011 MADL ELEVATOR CONSTRUCTOR SUPERVISOR, ANSON L 564.00 Constipation 01/15/2011 MADL ELEVATOR CONSTRUCTOR SUPERVISOR, ANSON L 780.52 INSOMNIA UNSPECIFIED 01/15/2011 MADL ELEVATOR CONSTRUCTOR SUPERVISOR, ANSON L 564.00 Constipation 01/15/2011 MADL ELEVATOR CONSTRUCTOR SUPERVISOR, ANSON L 780.52 INSOMNIA UNSPECIFIED 01/15/2011 MICHELINE ELEVATOR CONSTRUCTOR SUPERVISOR, RAQUEL R 564.00 Constipation 01/15/2011 MICHELINE ELEVATOR CONSTRUCTOR SUPERVISOR, RAQUEL R 780.52 INSOMNIA UNSPECIFIED 01/15/2011 WHITE DDS, ELLIOT J 564.00 Constipation 01/15/2011 WHITE DDS, ELLIOT J 780.52 INSOMNIA UNSPECIFIED 01/15/2011 CARMEN GIBBS MD N 564.00 Constipation 01/15/2011 CARMEN GIBBS MD 780.52 INSOMNIA UNSPECIFIED 01/15/2011 SUDHIR ROLON DOA K 564.00 Constipation 01/15/2011 SUDHIR ROLON DOA K 780.52 INSOMNIA UNSPECIFIED 01/15/2011 MADL ELEVATOR CONSTRUCTOR SUPERVISOR, ANSON L 564.00 Constipation 01/15/2011 MADL ELEVATOR CONSTRUCTOR SUPERVISOR, ANSON L 780.52 INSOMNIA UNSPECIFIED 01/15/2011 CARMEN GIBBS MD N 564.00 Constipation 01/15/2011 CARMEN GIBBS MD 780.52 INSOMNIA UNSPECIFIED 01/15/2011 CARMEN GIBBS MD N 564.00 Constipation 01/15/2011 CARMEN GIBBS MD 780.52 INSOMNIA UNSPECIFIED 01/15/2011 MADL ELEVATOR CONSTRUCTOR SUPERVISOR, ANSON L 564.00 Constipation 01/15/2011 MADL ELEVATOR CONSTRUCTOR SUPERVISOR, ANSON L 780.52 INSOMNIA UNSPECIFIED 01/15/2011 ROLON DO EMIL K 564.00 Constipation 01/15/2011 ROLON DO EMIL K 780.52 INSOMNIA UNSPECIFIED 02/02/2011 MUOGHALU DDS, REGINO N 401.1 HYPERTENSION, BENIGN ESSENTIAL 02/02/2011 BONITAU DDSREGINO N V17.49 FAM HX HYPERTENSION 02/02/2011 401.1 HYPERTENSION, BENIGN ESSENTIAL 02/02/2011 V17.49 FAM HX HYPERTENSION 02/02/2011 LOBATO ELEVATOR CONSTRUCTOR SUPERVISOR, BRENNA R 401.1 HYPERTENSION, BENIGN ESSENTIAL 02/02/2011 [...] K V17.49 FAM HX HYPERTENSION 02/02/2011 LUIS ALFREDO BAUMANN, BRENNA R 401.1 HYPERTENSION, BENIGN ESSENTIAL 02/02/2011 LUIS ALFREDO BAUMANN BRENNA R V17.49 FAM HX HYPERTENSION 02/02/2011 MADL ELEVATOR CONSTRUCTOR SUPERVISOR, ANSON L 401.1 HYPERTENSION, BENIGN ESSENTIAL 02/02/2011 [...] MD V17.49 FAM HX HYPERTENSION 02/02/2011 MADL ELEVATOR CONSTRUCTOR SUPERVISOR, ANSON L 401.1 HYPERTENSION, BENIGN ESSENTIAL 02/02/2011 MADL ELEVATOR CONSTRUCTOR SUPERVISOR, ANSON L V17.49 FAM HX HYPERTENSION 02/02/2011 MADL ELEVATOR CONSTRUCTOR SUPERVISOR, ANSON L 401.1 HYPERTENSION, BENIGN ESSENTIAL 02/02/2011 MADL ELEVATOR CONSTRUCTOR SUPERVISOR, ANSON L V17.49 FAM HX HYPERTENSION 02/02/2011 MICHELINE ELEVATOR CONSTRUCTOR SUPERVISOR, RAQUEL R 401.1 HYPERTENSION, BENIGN ESSENTIAL 02/02/2011 MICHELINE ELEVATOR CONSTRUCTOR SUPERVISOR, RAQUEL R V17.49 FAM HX HYPERTENSION 02/02/2011 WHITE DDS, ELLIOT J 401.1 HYPERTENSION, BENIGN ESSENTIAL 02/02/2011 WHITE DDS, ELLIOT J V17.49 FAM HX HYPERTENSION 02/02/2011 CARMEN GIBBS MD N 401.1 HYPERTENSION, BENIGN ESSENTIAL 02/02/2011 CARMEN GIBBS MD N V17.49 FAM HX HYPERTENSION 02/02/2011 ROLON DO, EMIL K 401.1 HYPERTENSION, BENIGN ESSENTIAL 02/02/2011 ROLON DO, EMIL K V17.49 FAM HX HYPERTENSION 02/02/2011 [facility] ELEVATOR CONSTRUCTOR SUPERVISOR, ANSON L 401.1 HYPERTENSION, BENIGN ESSENTIAL 02/02/2011 [facility] ELEVATOR CONSTRUCTOR SUPERVISOR, ANSON L V17.49 FAM HX HYPERTENSION 02/02/2011 CARMEN GIBBS MD N 401.1 HYPERTENSION, BENIGN ESSENTIAL 02/02/2011 CARMEN GIBBS MD N V17.49 FAM HX HYPERTENSION 02/02/2011 CARMEN GIBBS MD N 401.1 HYPERTENSION, BENIGN ESSENTIAL 02/02/2011 CARMEN GIBBS MD N V17.49 FAM HX HYPERTENSION 02/02/2011 [facility] ELEVATOR CONSTRUCTOR SUPERVISOR, ANSON L 401.1 HYPERTENSION, BENIGN ESSENTIAL 02/02/2011 [facility] ELEVATOR CONSTRUCTOR SUPERVISOR, ANSON L V17.49 FAM HX HYPERTENSION 02/02/2011 [...] 386.11 Vertigo- Benign Paroxysmal Positional 03/28/2011 MADL ELEVATOR CONSTRUCTOR SUPERVISOR, ANSON L 386.11 Vertigo- Benign Paroxysmal Positional 03/28/2011 MADL ELEVATOR CONSTRUCTOR SUPERVISOR, ANSON L 386.11 Vertigo- Benign Paroxysmal Positional 03/28/2011 MICHELINE BAUMANN RAQUEL R 386.11 Vertigo- Benign Paroxysmal Positional 03/28/2011 JOSH VILLAVICENCIO, ELLIOT J 386.11 Vertigo- Benign Paroxysmal Positional 03/28/2011 CARMEN GIBBS MD N 386.11 Vertigo- Benign Paroxysmal Positional 03/28/2011 ROLON DO, EMIL K 386.11 Vertigo- Benign Paroxysmal Positional 03/28/2011 MADL ELEVATOR CONSTRUCTOR SUPERVISOR, ANSON L 386.11 Vertigo- Benign Paroxysmal Positional 03/28/2011 CARMEN GIBBS MD N 386.11 Vertigo- Benign Paroxysmal Positional 03/28/2011 CARMEN GIBBS MD N 386.11 Vertigo- Benign Paroxysmal Positional 03/28/2011 MADL ELEVATOR CONSTRUCTOR SUPERVISOR, ANSON L 386.11 Vertigo- Benign Paroxysmal Positional [...] (3 Yrs And Above, Im) 04/12/2011 LOBATO ELEVATOR CONSTRUCTOR SUPERVISOR, BRENNA R 892.0 Open Wound Of Foot Except Toe(s) Alone Without Complication 04/12/2011 LOBATO ELEVATOR CONSTRUCTOR SUPERVISOR, BRENNA R 917.8 Other And Unspecified Superficial Injury Of Foot And Toes Without Infection 04/12/2011 LOBATO ELEVATOR CONSTRUCTOR SUPERVISOR, BRENNA R V04.81 Flu Dx (3 Yrs And Above, Im) 04/12/2011 MADL ELEVATOR CONSTRUCTOR SUPERVISOR, ANSON L 892.0 Open Wound Of Foot Except Toe(s) Alone Without Complication 04/12/2011 MAD[employer] ELEVATOR CONSTRUCTOR SUPERVISOR, ANSON L 917.8 Other And Unspecified Superficial Injury Of Foot And Toes Without Infection 04/12/2011 MAD[facility] ELEVATOR CONSTRUCTOR SUPERVISOR, ANSON L V04.81 Flu Dx (3 Yrs And Above, Im) 04/12/2011 LOBATO ELEVATOR CONSTRUCTOR SUPERVISOR, BRENNA R 892.0 Open Wound Of Foot Except Toe(s) Alone Without Complication 04/12/2011 LOBATO ELEVATOR CONSTRUCTOR SUPERVISOR, BRENNA R 917.8 Other And Unspecified Superficial Injury Of Foot And Toes Without Infection 04/12/2011 LUIS ALFREDO ELEVATOR CONSTRUCTOR SUPERVISOR, BRENNA R V04.81 Flu Dx (3 Yrs [...] Foot And Toes Without Infection 04/12/2011 MICHELINE ELEVATOR CONSTRUCTOR SUPERVISOR, RAQUEL R V04.81 Flu Dx (3 Yrs And Above, Im) 04/12/2011 CARMEN GIBBS MD N 892.0 Open Wound Of Foot Except Toe(s) Alone Without Complication 04/12/2011 CARMEN GIBBS MD N 917.8 Other And Unspecified Superficial Injury Of Foot And Toes Without Infection 04/12/2011 CARMEN GIBBS MD V04.81 Flu Dx (3 Yrs And Above, Im) 04/12/2011 MAD[facility] ELEVATOR CONSTRUCTOR SUPERVISOR, ANSON L 892.0 Open Wound Of Foot Except Toe(s) Alone Without Complication 04/12/2011 MAD[facility] ELEVATOR CONSTRUCTOR SUPERVISOR, ANSON L 917.8 Other And Unspecified Superficial Injury Of Foot And Toes Without Infection 04/12/2011 MAD[employer] ELEVATOR CONSTRUCTOR SUPERVISOR, ANSON L V04.81 Flu Dx (3 Yrs And Above, Im) 04/12/2011 MAD[employer] ELEVATOR CONSTRUCTOR SUPERVISOR, ANSON L 892.0 Open Wound Of Foot Except Toe(s) Alone Without Complication 04/12/2011 MAD[employer] ELEVATOR CONSTRUCTOR SUPERVISOR, ANSON L 917.8 Other And Unspecified Superficial Injury Of Foot And Toes Without Infection 04/12/2011 MAD[facility] ELEVATOR CONSTRUCTOR SUPERVISOR, ANSON L V04.81 Flu Dx (3 Yrs And Above, Im) 04/12/2011 MICHELINE ELEVATOR CONSTRUCTOR SUPERVISOR, RAQUEL R 892.0 Open Wound Of Foot Except Toe(s) Alone Without Complication 04/12/2011 MICHELINE ELEVATOR CONSTRUCTOR SUPERVISOR, RAQUEL R 917.8 Other And Unspecified Superficial [...] (3 Yrs And Above, Im) 04/12/2011 MADL ELEVATOR CONSTRUCTOR SUPERVISOR, ANSON L 892.0 Open Wound Of Foot Except Toe(s) Alone Without Complication 04/12/2011 MADL ELEVATOR CONSTRUCTOR SUPERVISOR, ANSON L 917.8 Other And Unspecified Superficial Injury Of Foot And Toes Without Infection 04/12/2011 MADL ELEVATOR CONSTRUCTOR SUPERVISOR, ANSON L V04.81 Flu Dx (3 Yrs [...] (3 Yrs And Above, Im) 04/12/2011 MADBenji ELEVATOR CONSTRUCTOR SUPERVISOR, ANSON L 892.0 Open Wound Of Foot Except Toe(s) Alone Without Complication 04/12/2011 MADBenji ELEVATOR CONSTRUCTOR SUPERVISOR, ANSON L 917.8 Other And Unspecified Superficial Injury Of Foot And Toes Without Infection 04/12/2011 MADL ELEVATOR CONSTRUCTOR SUPERVISOR, ANSON L V04.81 Flu Dx (3 Yrs [...] 477.9 ALLERGIC RHINITIS CAUSE UNSPECIFIED 04/13/2011 MADL ELEVATOR CONSTRUCTOR SUPERVISOR, ANSON L 477.9 ALLERGIC RHINITIS CAUSE UNSPECIFIED 04/13/2011 MADL ELEVATOR CONSTRUCTOR SUPERVISOR ANSON L 477.9 ALLERGIC RHINITIS CAUSE UNSPECIFIED [...] 789.00 Abdominal Pain Unspecified Site 04/17/2011 LOBATO ELEVATOR CONSTRUCTOR SUPERVISOR, BRENNA R 599.0 Urinary Tract Infection 04/17/2011 LOBATO ELEVATOR CONSTRUCTOR SUPERVISOR, BRENNA R 789.00 Abdominal Pain Unspecified Site [...] APRN 599.0 Urinary Tract Infection 04/17/2011 KIM ELEVATOR CONSTRUCTOR SUPERVISOR, OSMAN T 789.00 Abdominal Pain Unspecified Site [...] 789.00 Abdominal Pain Unspecified Site 04/17/2011 MADL ELEVATOR CONSTRUCTOR SUPERVISOR, ANSON L 599.0 Urinary Tract Infection 04/17/2011 MADL ELEVATOR CONSTRUCTOR SUPERVISOR, ANSON L 789.00 Abdominal Pain Unspecified Site [...] 789.00 Abdominal Pain Unspecified Site 04/17/2011 MADL ELEVATOR CONSTRUCTOR SUPERVISOR, ANSON L 599.0 Urinary Tract Infection 04/17/2011 MADL ELEVATOR CONSTRUCTOR SUPERVISOR, ANSON L 789.00 Abdominal Pain Unspecified Site 04/17/2011 MADL ELEVATOR CONSTRUCTOR SUPERVISOR, ANSON L 599.0 Urinary Tract Infection 04/17/2011 MADL ELEVATOR CONSTRUCTOR SUPERVISOR, ANSON L 789.00 Abdominal Pain Unspecified Site 04/17/2011 MICHELINE ELEVATOR CONSTRUCTOR SUPERVISOR, RAQUEL R 599.0 Urinary Tract Infection 04/17/2011 MICHELINE ELEVATOR CONSTRUCTOR SUPERVISOR, RAQUEL R 789.00 Abdominal Pain Unspecified Site [...] 789.00 Abdominal Pain Unspecified Site 04/17/2011 MADL ELEVATOR CONSTRUCTOR SUPERVISOR, ANSON L 599.0 Urinary Tract Infection 04/17/2011 MADL ELEVATOR CONSTRUCTOR SUPERVISOR, ANSON L 789.00 Abdominal Pain Unspecified Site 04/17/2011 CARMEN GIBBS MD N 599.0 Urinary Tract Infection 04/17/2011 CARMEN GIBBS MD N 789.00 Abdominal Pain Unspecified Site 04/17/2011 CARMEN GIBBS MD N 599.0 Urinary Tract Infection 04/17/2011 CARMEN GIBBS MD N 789.00 Abdominal Pain Unspecified Site 04/17/2011 MADL ELEVATOR CONSTRUCTOR SUPERVISOR, ANSON L 599.0 Urinary Tract Infection 04/17/2011 MADL ELEVATOR CONSTRUCTOR SUPERVISOR, ANSON L 789.00 Abdominal Pain Unspecified Site 04/17/2011 ROLON DO, EMIL K 599.0 Urinary Tract Infection 04/17/2011 ROLON DO, EMIL K 789.00 Abdominal Pain Unspecified Site 05/01/2011 DEB JETERS, REGINO N 625.9 Pelvic Pain 05/01/2011 625.9 Pelvic Pain 05/01/2011 LOBATO ELEVATOR CONSTRUCTOR SUPERVISOR, BRENNA R 625.9 Pelvic Pain 05/01/2011 ROLON [...] K 625.9 Pelvic Pain 05/01/2011 LUIS ALFREDO ELEVATOR CONSTRUCTOR SUPERVISOR, BRENNA R 625.9 Pelvic Pain 05/01/2011 JOSE FRANCISCOL ELEVATOR CONSTRUCTOR SUPERVISOR, ANSON L 625.9 Pelvic Pain 05/01/2011 LUIS ALFREDO YUN, BRENNA R 625.9 Pelvic Pain 05/01/2011 CARMEN GIBBS MD N 625.9 Pelvic Pain 05/01/2011 ROLON DO, EMIL K 625.9 Pelvic Pain 05/01/2011 MICHELINE ELEVATOR CONSTRUCTOR SUPERVISOR, RAQUEL R 625.9 Pelvic Pain 05/01/2011 CARMEN GIBBS MD N 625.9 Pelvic Pain 05/01/2011 LOBATO ELEVATOR CONSTRUCTOR SUPERVISOR, BRENNA R 625.9 Pelvic Pain 05/01/2011 MICHELINE YUN, RAQUEL R 625.9 Pelvic Pain 05/01/2011 CARMEN GIBBS MD N 625.9 Pelvic Pain 05/01/2011 MADL ELEVATOR CONSTRUCTOR SUPERVISOR, ANSON L 625.9 Pelvic Pain 05/01/2011 MADL ELEVATOR CONSTRUCTOR SUPERVISOR, ANSON L 625.9 Pelvic Pain 05/01/2011 MICHELINE [...] MD 381.81 Dysfunction Of Eustachian Tube 05/21/2011 CRAMEN GIBBS MD 381.81 Dysfunction Of Eustachian Tube [...] 786.50 Chest Pain Or Discomfort 05/30/2011 MADL ELEVATOR CONSTRUCTOR SUPERVISOR, ANSON L 786.50 Chest Pain Or Discomfort [...] ROLON DO 729.5 Hand Pain 06/20/2011 ELLY DOUGLAS MD 729.5 Hand Pain 06/20/2011 CARMEN GIBBS [...] DO, EMIL K 729.5 Hand Pain 06/20/2011 OSMAN ALVAREZ APRN [...] 11/05/2011 V74.5 Std Screen 11/05/2011 LUIS ALFREDO ELEVATOR CONSTRUCTOR SUPERVISOR, BRENNA R 685.1 Pilonidal Cyst Without Abscess 11/05/2011 LUIS ALFREDO ELEVATOR CONSTRUCTOR SUPERVISOR, BRENNA R V25.09 CONTRACEPTIVE COUNSELING - GENERAL 11/05/2011 LUIS ALFREDO ELEVATOR CONSTRUCTOR SUPERVISOR, BRENNA R V65.3 COUNSELING - DIETARY 11/05/2011 [...] TOBIAS APRN R V74.5 Std Screen 11/05/2011 CARMEN GIBBS [...] TOBIAS APRNINA R V74.5 Std Screen 11/05/2011 CAMREN GIBBS MD 685.1 Pilonidal Cyst Without Abscess [...] V65.3 COUNSELING - DIETARY 11/05/2011 JOSE FRANCISCOBenji ELEVATOR CONSTRUCTOR SUPERVISORLETICIA ChristieA L V65.41 EXERCISE COUNSELING 11/05/2011 JOSE FRANCISCOBenji ELEVATOR CONSTRUCTOR SUPERVISORLETICIA ChristieA L V74.5 Std Screen 11/05/2011 MALACHI [...] EMIL K V74.5 Std Screen 11/05/2011 MADL ELEVATOR CONSTRUCTOR SUPERVISOR, ANSON L 685.1 Pilonidal Cyst Without Abscess 11/05/2011 MADL ELEVATOR CONSTRUCTOR SUPERVISOR, ANSON L V25.09 CONTRACEPTIVE COUNSELING - GENERAL 11/05/2011 MADL ELEVATOR CONSTRUCTOR SUPERVISOR, ANSON L V65.3 COUNSELING - DIETARY 11/05/2011 MADL ELEVATOR CONSTRUCTOR SUPERVISOR, ANSON L V65.41 EXERCISE COUNSELING 11/05/2011 JOSE FRANCISCOL ELEVATOR CONSTRUCTOR SUPERVISOR, ANSON L V74.5 Std Screen 11/05/2011 CARMEN [...] GIBBS MD V74.5 Std Screen 11/05/2011 MADL ELEVATOR CONSTRUCTOR SUPERVISOR, ANSON L 685.1 Pilonidal Cyst Without Abscess 11/05/2011 MADL ELEVATOR CONSTRUCTOR SUPERVISOR, ANSON L V25.09 CONTRACEPTIVE COUNSELING - GENERAL 11/05/2011 MADL ELEVATOR CONSTRUCTOR SUPERVISOR, ANSON L V65.3 COUNSELING - DIETARY 11/05/2011 MADL ELEVATOR CONSTRUCTOR SUPERVISOR, ANSON L V65.41 EXERCISE COUNSELING 11/05/2011 MADL ELEVATOR CONSTRUCTOR SUPERVISOR, ANSON L V74.5 Std Screen 11/05/2011 ROLON [...] APRNINA R 008.8 Gastroenteritis, Viral 11/07/2011 ELLIOT OMRENO DDS 008.8 Gastroenteritis, Viral 11/07/2011 CARMEN GIBBS [...] L 724.79 Other Disorders Of Coccyx 12/10/2011 CARMEN [...] V25.11 IUD INSERTION 12/31/2011 JESSICA JETERS, RAQUEL Galdamze V25.11 IUD INSERTION 12/31/2011 ROLON DO, EMIL [...] EMIL K 078.11 Condyloma Acuminatum 01/21/2012 LOBATO ELEVATOR CONSTRUCTOR SUPERVISOR, BRENNA R 078.11 Condyloma Acuminatum 01/21/2012 SHERI ELEVATOR CONSTRUCTOR SUPERVISOR, ANSON L 078.11 Condyloma Acuminatum 01/21/2012 LUIS ALFREDO BAUMANN, BRENNA R 078.11 Condyloma Acuminatum 01/21/2012 CARMEN GIBBS MD N 078.11 Condyloma Acuminatum 01/21/2012 EMIL ROLON DO K 078.11 Condyloma Acuminatum 01/21/2012 MICHELINE BAUMANN, RAQUEL R 078.11 Condyloma Acuminatum 01/21/2012 CARMEN GIBBS MD N 078.11 Condyloma Acuminatum 01/21/2012 CRISTINO LOBATO APRNIA R 078.11 Condyloma Acuminatum 01/21/2012 MICHELINE BAUMANN, RAQUEL [...] LOBATO APRN R 388.70 Otalgia 03/18/2012 MICHELINE ELEVATOR CONSTRUCTOR SUPERVISOR, RAQUEL R 388.70 Otalgia 03/18/2012 CARMEN GIBBS MD 388.70 Otalgia 03/18/2012 MADL ELEVATOR CONSTRUCTOR SUPERVISOR, ANSON L 388.70 Otalgia 03/18/2012 MADL ELEVATOR CONSTRUCTOR SUPERVISOR, ANSON L 388.70 Otalgia 03/18/2012 MICHELINE BAUMANN, RAQUEL R 388.70 Otalgia 03/18/2012 ELLIOT MORENO DDS 388.70 Otalgia 03/18/2012 CARMEN GIBBS MD 388.70 Otalgia 03/18/2012 EMIL ROLON DO 388.70 Otalgia 03/18/2012 MADBenji ELEVATOR CONSTRUCTOR SUPERVISOR, ANSON L 388.70 Otalgia 03/18/2012 CARMEN GIBBS MD 388.70 Otalgia 03/18/2012 CARMEN GIBBS MD 388.70 Otalgia 03/18/2012 MADBenji ELEVATOR CONSTRUCTOR SUPERVISOR, ANSON L 388.70 Otalgia 03/18/2012 EMIL ROLON [...] In Joint Involving Ankle And Foot 03/20/2012 RAQEUL TOBIAS APRN R 719.47 Pain In Joint [...] Neoplasm Of Skin Site Unspecified 05/05/2012 MADL ELEVATOR CONSTRUCTOR SUPERVISOR, ANSON L 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 05/05/2012 MADL ELEVATOR CONSTRUCTOR SUPERVISOR, ANSON L 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 05/05/2012 MICHELINE ELEVATOR CONSTRUCTOR SUPERVISOR, RAQUEL R 216.9 Benign Neoplasm Of Skin [...] DO, EMIL K V58.32 Suture Removal 05/19/2012 LUIS ALFREDO BAUMANN [...] Of Uncertain Behavior Of Skin 05/19/2012 MICHELINE ELEVATOR CONSTRUCTOR SUPERVISOR, RAQUEL R V58.32 Suture Removal 05/19/2012 CARMEN GIBBS MD N 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 05/19/2012 CARMEN GIBBS MD N V58.32 Suture Removal 05/19/2012 LUIS ALFREDO ELEVATOR CONSTRUCTOR SUPERVISOR, BRENNA R 238.2 Neoplasm Of Uncertain Behavior [...] Of Uncertain Behavior Of Skin 05/19/2012 MADL ELEVATOR CONSTRUCTOR SUPERVISOR, ANSON L V58.32 Suture Removal 05/19/2012 JOSE [...] BAUMANN, BRENNA R 704.1 HIRSUTISM 07/02/2012 SHERI ELEVATOR CONSTRUCTOR SUPERVISOR, ANSON L 704.1 HIRSUTISM 07/02/2012 LUIS ALFREDO [...] GIBBS MD N 786.2 COUGH 07/07/2012 KIM ELEVATOR CONSTRUCTOR SUPERVISOR, OSMAN T 786.2 COUGH 07/07/2012 ROLON DO, EMIL K 786.2 COUGH 07/07/2012 ROLON DO, EMIL K 786.2 COUGH 07/07/2012 ROLON DO, EMIL K 786.2 COUGH 07/07/2012 KIM ELEVATOR CONSTRUCTOR SUPERVISOR, OSMAN T 786.2 COUGH 07/07/2012 ROLON DO, EMIL K 786.2 COUGH 07/07/2012 ROLON DO, EMIL K 786.2 COUGH 07/07/2012 LUIS ALFREDO BAUMANN, BRENNA R 786.2 COUGH 07/07/2012 SHERI ELEVATOR CONSTRUCTOR SUPERVISOR, ANSON L 786.2 COUGH 07/07/2012 LUIS ALFREDO [...] GIBBS MD N 786.2 COUGH 07/07/2012 SHERI ELEVATOR CONSTRUCTOR SUPERVISOR, ANSON L 786.2 COUGH 07/07/2012 SHERI ELEVATOR CONSTRUCTOR SUPERVISOR, ANSON L 786.2 COUGH 07/07/2012 MICHELINE BAUMANN, RAQUEL R 786.2 COUGH 07/07/2012 JOSH VILLAVICENCIO, ELLIOT Alston 786.2 COUGH 07/07/2012 CARMEN GIBBS MD N 786.2 COUGH 07/07/2012 SHERI ELEVATOR CONSTRUCTOR SUPERVISOR, ANSON L 786.2 COUGH 07/07/2012 CARMEN GIBBS [...] EMIL K 112.1 CANDIDIASIS VAGINAL 08/20/2012 KIM ELEVATOR CONSTRUCTOR SUPERVISOR, OSMAN T 054.9 HERPES SIMPLEX WITHOUT COMPLICATION [...] HERPES SIMPLEX WITHOUT COMPLICATION 08/20/2012 LUIS ALFREDO ELEVATOR CONSTRUCTOR SUPERVISOR, BRENNA R 112.1 CANDIDIASIS VAGINAL 08/20/2012 SHERI ELEVATOR CONSTRUCTOR SUPERVISOR, ANSON L 054.9 HERPES SIMPLEX WITHOUT COMPLICATION 08/20/2012 SHERI ELEVATOR CONSTRUCTOR SUPERVISOR, ANSON L 112.1 CANDIDIASIS VAGINAL 08/20/2012 LUIS [...] 054.9 HERPES SIMPLEX WITHOUT COMPLICATION 08/20/2012 MAD ELEVATOR CONSTRUCTOR SUPERVISOR, ANSON L 112.1 CANDIDIASIS VAGINAL 08/20/2012 [facility] ELEVATOR CONSTRUCTOR SUPERVISOR, ANSON L 054.9 HERPES SIMPLEX WITHOUT COMPLICATION 08/20/2012 MAD ELEVATOR CONSTRUCTOR SUPERVISOR, ANSON L 112.1 CANDIDIASIS VAGINAL 08/20/2012 MICHELINE ELEVATOR CONSTRUCTOR SUPERVISOR, RAQUEL R 054.9 HERPES SIMPLEX WITHOUT COMPLICATION 08/20/2012 MICHELINE ELEVATOR CONSTRUCTOR SUPERVISOR, RAQUEL R 112.1 CANDIDIASIS VAGINAL 08/20/2012 WHITE DDS, ELLIOT J 054.9 HERPES SIMPLEX WITHOUT COMPLICATION 08/20/2012 WHITE DDS, ELLIOT J 112.1 CANDIDIASIS VAGINAL 08/20/2012 CARMEN GIBBS MD N 054.9 HERPES SIMPLEX WITHOUT COMPLICATION 08/20/2012 CARMEN GIBBS MD N 112.1 CANDIDIASIS VAGINAL 08/20/2012 [facility] ELEVATOR CONSTRUCTOR SUPERVISOR, ANSON L 054.9 HERPES SIMPLEX WITHOUT COMPLICATION 08/20/2012 [facility] ELEVATOR CONSTRUCTOR SUPERVISOR, ANSON L 112.1 CANDIDIASIS VAGINAL 08/20/2012 CARMEN GIBBS MD N 054.9 HERPES SIMPLEX WITHOUT COMPLICATION 08/20/2012 CARMEN GIBBS MD N 112.1 CANDIDIASIS VAGINAL 08/20/2012 CARMEN GIBBS MD N 054.9 HERPES SIMPLEX WITHOUT COMPLICATION 08/20/2012 CARMEN GIBBS MD N 112.1 CANDIDIASIS VAGINAL 08/20/2012 [facility] ELEVATOR CONSTRUCTOR SUPERVISOR, ANSON L 054.9 HERPES SIMPLEX WITHOUT COMPLICATION 08/20/2012 [facility] ELEVATOR CONSTRUCTOR SUPERVISOR, ANSON L 112.1 CANDIDIASIS VAGINAL 08/20/2012 EMIL [...] ABDOMINAL PAIN, RIGHT UPPER QUADRANT 11/29/2012 ISSAC MASETRS MD Ot 338.18 OTHER ACUTE POSTOPERATIVE PAIN [...] 682.6 CELLULITIS OF LEG 05/11/2013 GEORGES FINN ELEVATOR CONSTRUCTOR SUPERVISOR Ot 782.1 NONSPECIF SKIN ERUPT NEC 05/12/2013 [...] INFECTION OF SKIN AND SUBCUTANEOUS TISSUE 05/12/2013 BRNENA LOBATO APRN R 686.9 UNSPECIFIED LOCAL INFECTION [...] GIBBS MD 307.81 TENSION HEADACHE 05/27/2013 MADL ELEVATOR CONSTRUCTOR SUPERVISOR, ANSON L 307.81 TENSION HEADACHE 05/27/2013 MADL ELEVATOR CONSTRUCTOR SUPERVISOR, ANSON L 307.81 TENSION HEADACHE 05/27/2013 MICHELINE ELEVATOR CONSTRUCTOR SUPERVISOR, RAQUEL R 307.81 TENSION HEADACHE 05/27/2013 JOSH VILLAVICENCIO, ELLIOT Alston 307.81 TENSION HEADACHE 05/27/2013 CARMEN GIBBS MD 307.81 TENSION HEADACHE 05/27/2013 MADL ELEVATOR CONSTRUCTOR SUPERVISOR, ANSON L 307.81 TENSION HEADACHE 05/27/2013 CARMEN GIBBS MD 307.81 TENSION HEADACHE 05/27/2013 CARMEN GIBBS MD 307.81 TENSION HEADACHE 05/27/2013 MADL ELEVATOR CONSTRUCTOR SUPERVISOR, ANSON L 307.81 TENSION HEADACHE 05/27/2013 SUDHIR [...] AND ABSCESS OF UNSPECIFIED SITES 05/29/2013 LOBATO ELEVATOR CONSTRUCTOR SUPERVISOR, BRENNA R 682.9 CELLULITIS AND ABSCESS OF UNSPECIFIED SITES 05/29/2013 MADL ELEVATOR CONSTRUCTOR SUPERVISOR, ANSON L 682.9 CELLULITIS AND ABSCESS OF UNSPECIFIED SITES 05/29/2013 LOBATO ELEVATOR CONSTRUCTOR SUPERVISOR, BRENNA R 682.9 CELLULITIS AND ABSCESS OF UNSPECIFIED SITES 05/29/2013 CARMEN GIBBS MD 682.9 CELLULITIS AND ABSCESS OF UNSPECIFIED SITES 05/29/2013 ROLON DO, EMIL K 682.9 CELLULITIS AND ABSCESS OF UNSPECIFIED SITES 05/29/2013 MICHELINE ELEVATOR CONSTRUCTOR SUPERVISOR, RAQUEL R 682.9 CELLULITIS AND ABSCESS OF UNSPECIFIED SITES 05/29/2013 CARMEN GIBBS MD 682.9 CELLULITIS AND ABSCESS OF UNSPECIFIED SITES 05/29/2013 LOBATO ELEVATOR CONSTRUCTOR SUPERVISOR, BRENNA R 682.9 CELLULITIS AND ABSCESS OF UNSPECIFIED SITES 05/29/2013 MICHELINE ELEVATOR CONSTRUCTOR SUPERVISOR, RAQUEL R 682.9 CELLULITIS AND ABSCESS OF UNSPECIFIED SITES 05/29/2013 CARMEN GIBBS MD N 682.9 CELLULITIS AND ABSCESS OF UNSPECIFIED SITES 05/29/2013 MADL ELEVATOR CONSTRUCTOR SUPERVISOR, ANSON L 682.9 CELLULITIS AND ABSCESS OF UNSPECIFIED SITES 05/29/2013 MADL ELEVATOR CONSTRUCTOR SUPERVISOR, ANSON L 682.9 CELLULITIS AND ABSCESS OF UNSPECIFIED SITES 05/29/2013 MICHELINE ELEVATOR CONSTRUCTOR SUPERVISOR, RAQUEL R 682.9 CELLULITIS AND ABSCESS OF UNSPECIFIED SITES 05/29/2013 JOSH JETERS, ELLIOT Alston 682.9 CELLULITIS AND ABSCESS OF UNSPECIFIED SITES 05/29/2013 CARMEN GIBBS MD N 682.9 CELLULITIS AND ABSCESS OF UNSPECIFIED SITES 05/29/2013 MADL ELEVATOR CONSTRUCTOR SUPERVISOR, ANSON L 682.9 CELLULITIS AND ABSCESS OF UNSPECIFIED SITES 05/29/2013 CARMEN GIBBS MD N 682.9 CELLULITIS AND ABSCESS OF UNSPECIFIED SITES 05/29/2013 CARMEN GIBBS MD N 682.9 CELLULITIS AND ABSCESS OF UNSPECIFIED SITES 05/29/2013 MADL ELEVATOR CONSTRUCTOR SUPERVISOR, ANSON L 682.9 CELLULITIS AND ABSCESS OF [...] WOUND DRAIN CHANGE/REMOVAL AFTER SURGERY 05/30/2013 MADL ELEVATOR CONSTRUCTOR SUPERVISOR, ANSON L V58.49 WOUND DRAIN CHANGE/REMOVAL AFTER SURGERY 05/30/2013 MICHELINE ELEVATOR CONSTRUCTOR SUPERVISOR, RAQUEL R V58.49 WOUND DRAIN CHANGE/REMOVAL AFTER SURGERY 05/30/2013 JOSH JETERS, ELLIOT J V58.49 WOUND DRAIN CHANGE/REMOVAL AFTER SURGERY 05/30/2013 CARMEN GIBBS MD V58.49 WOUND DRAIN CHANGE/REMOVAL AFTER SURGERY 05/30/2013 SHERI ELEVATOR CONSTRUCTOR SUPERVISOR, ANSON L V58.49 WOUND DRAIN CHANGE/REMOVAL AFTER SURGERY 05/30/2013 CARMEN GIBBS MD V58.49 WOUND DRAIN CHANGE/REMOVAL AFTER SURGERY 05/30/2013 CARMEN GIBBS MD V58.49 WOUND DRAIN CHANGE/REMOVAL AFTER SURGERY 05/30/2013 SHERI ELEVATOR CONSTRUCTOR SUPERVISOR, ANSON L V58.49 WOUND DRAIN CHANGE/REMOVAL AFTER [...] THIGH) AND ANKLE WITHOUT COMPLICATION 06/05/2013 KIM ELEVATOR CONSTRUCTOR SUPERVISOR OSMAN T 891.0 OPEN WOUND OF KNEE LEG (EXCEPT THIGH) AND ANKLE WITHOUT COMPLICATION 06/05/2013 ROLON DO, EMIL K 891.0 OPEN WOUND OF KNEE LEG (EXCEPT THIGH) AND ANKLE WITHOUT COMPLICATION 06/05/2013 ROLON DO, EMIL K 891.0 OPEN WOUND OF KNEE LEG (EXCEPT THIGH) AND ANKLE WITHOUT COMPLICATION 06/05/2013 LOBATO ELEVATOR CONSTRUCTOR SUPERVISOR, BRENNA R 891.0 OPEN WOUND OF KNEE LEG (EXCEPT THIGH) AND ANKLE WITHOUT COMPLICATION 06/05/2013 MADL ELEVATOR CONSTRUCTOR SUPERVISOR, ANSON L 891.0 OPEN WOUND OF KNEE LEG (EXCEPT THIGH) AND ANKLE WITHOUT COMPLICATION 06/05/2013 LUIS ALFREDO ELEVATOR CONSTRUCTOR SUPERVISOR, BRENNA R 891.0 OPEN WOUND OF KNEE LEG (EXCEPT THIGH) AND ANKLE WITHOUT COMPLICATION 06/05/2013 CARMEN GIBBS MD N 891.0 OPEN WOUND OF KNEE LEG (EXCEPT THIGH) AND ANKLE WITHOUT COMPLICATION 06/05/2013 EMIL ROLON DO K 891.0 OPEN WOUND OF KNEE LEG (EXCEPT THIGH) AND ANKLE WITHOUT COMPLICATION 06/05/2013 MICHELINE ELEVATOR CONSTRUCTOR SUPERVISOR, RAQUEL R 891.0 OPEN WOUND OF KNEE LEG (EXCEPT THIGH) AND ANKLE WITHOUT COMPLICATION 06/05/2013 CARMEN GIBBS MD N 891.0 OPEN WOUND OF KNEE LEG (EXCEPT THIGH) AND ANKLE WITHOUT COMPLICATION 06/05/2013 LUIS ALFREDO YUN, BRENNA R 891.0 OPEN WOUND OF KNEE LEG (EXCEPT THIGH) AND ANKLE WITHOUT COMPLICATION 06/05/2013 MICHELINE ELEVATOR CONSTRUCTOR SUPERVISOR, RAQUEL R 891.0 OPEN WOUND OF KNEE LEG (EXCEPT THIGH) AND ANKLE WITHOUT COMPLICATION 06/05/2013 CARMEN GIBBS MD N 891.0 OPEN WOUND OF KNEE LEG (EXCEPT THIGH) AND ANKLE WITHOUT COMPLICATION 06/05/2013 MADL ELEVATOR CONSTRUCTOR SUPERVISOR, ANSON L 891.0 OPEN WOUND OF KNEE LEG (EXCEPT THIGH) AND ANKLE WITHOUT COMPLICATION 06/05/2013 MADL ELEVATOR CONSTRUCTOR SUPERVISOR, ANSON L 891.0 OPEN WOUND OF KNEE LEG (EXCEPT THIGH) AND ANKLE WITHOUT COMPLICATION 06/05/2013 MICHELINE ELEVATOR CONSTRUCTOR SUPERVISOR, RAQUEL R 891.0 OPEN WOUND OF KNEE [...] N 493.92 ASTHMA (ACUTE) EXACERBATION 09/03/2013 OSMAN AVLAREZ APRN 493.92 ASTHMA (ACUTE) EXACERBATION 09/03/2013 EMIL ROLON DO 493.92 ASTHMA (ACUTE) EXACERBATION 09/03/2013 EMIL ROLON DO 493.92 ASTHMA WITH ACUTE EXACERBATION 09/03/2013 EMIL ROLON DO 493.92 ASTHMA WITH ACUTE EXACERBATION 09/03/2013 OSMAN ALVAREZ APRN 493.92 ASTHMA WITH ACUTE EXACERBATION 09/03/2013 EMIL ROLON DO 493.92 ASTHMA WITH ACUTE EXACERBATION 09/03/2013 EMIL ROLON DO 493.92 ASTHMA WITH ACUTE EXACERBATION 09/03/2013 LOBATO ELEVATOR CONSTRUCTOR SUPERVISOR, BRENNA R 493.92 ASTHMA WITH ACUTE EXACERBATION 09/03/2013 SHERI ELEVATOR CONSTRUCTOR SUPERVISOR, ANSON L 493.92 ASTHMA WITH ACUTE EXACERBATION [...] 465.9 UPPER RESPIRATORY INFECTION 09/12/2013 LUIS ALFREDO ELEVATOR CONSTRUCTOR SUPERVISOR, BRENNA R 465.9 UPPER RESPIRATORY INFECTION 09/12/2013 MADL ELEVATOR CONSTRUCTOR SUPERVISOR, ANSON L 465.9 UPPER RESPIRATORY INFECTION 09/12/2013 [...] N 465.9 UPPER RESPIRATORY INFECTION 09/12/2013 SHERI ELEVATOR CONSTRUCTOR SUPERVISOR, ANSON L 465.9 UPPER RESPIRATORY INFECTION 09/12/2013 MADL ELEVATOR CONSTRUCTOR SUPERVISOR, ANSON L 465.9 UPPER RESPIRATORY INFECTION 09/12/2013 [...] ACUTE MUCOID LEFT EAR 09/16/2013 JOSE FRANCISCOL ELEVATOR CONSTRUCTOR SUPERVISOR, ANSON L 381.02 OTITIS MEDIA ACUTE MUCOID [...] ASSOCIATED WITH FEMALE GENITAL ORGANS 09/21/2013 MADL ELEVATOR CONSTRUCTOR SUPERVISOR, ANSON L 625.8 OTHER SPECIFIED SYMPTOMS ASSOCIATED [...] PAIN IN JOINT INVOLVING UPPER ARM 09/28/2013 OSAMN ALVAREZ APRN 727.49 OTHER GANGLION AND CYST [...] R 110.1 DERMATOPHYTOSIS OF NAIL 10/24/2013 CARMEN GBIBS MD N 110.1 DERMATOPHYTOSIS OF NAIL 10/24/2013 [...] MD N 787.02 NAUSEA ALONE 10/28/2013 EMIL ROLON DO K 787.02 NAUSEA ALONE 10/28/2013 RAQUEL [...] WADE APRN L 787.02 NAUSEA ALONE 10/28/2013 CARMEN GIBBS MD [...] IN JOINT INVOLVING SHOULDER REGION 03/30/2014 MADL ELEVATOR CONSTRUCTOR SUPERVISOR, ANSON L 719.41 PAIN IN JOINT INVOLVING SHOULDER REGION 03/30/2014 CARMEN GIBBS MD N 719.41 PAIN IN JOINT INVOLVING SHOULDER REGION 03/30/2014 CARMEN GIBBS MD 719.41 PAIN IN JOINT INVOLVING SHOULDER REGION 03/30/2014 MADL ELEVATOR CONSTRUCTOR SUPERVISOR, ANSON L 719.41 PAIN IN JOINT INVOLVING SHOULDER REGION 03/30/2014 EMIL ROLON DO 719.41 PAIN IN JOINT INVOLVING SHOULDER REGION 04/27/2014 CARMEN GIBBS MD N 704.00 ALOPECIA UNSPECIFIED 04/27/2014 MADL ELEVATOR CONSTRUCTOR SUPERVISOR, ANSON L 704.00 ALOPECIA UNSPECIFIED 04/27/2014 MADL ELEVATOR CONSTRUCTOR SUPERVISOR, ANSON L 704.00 ALOPECIA UNSPECIFIED 04/27/2014 MICHELINE BAUMANN, RAQUEL R 704.00 ALOPECIA UNSPECIFIED 04/27/2014 ELLIOT MORENO DDS J 704.00 ALOPECIA UNSPECIFIED 04/27/2014 CARMEN GIBBS MD N 704.00 ALOPECIA UNSPECIFIED 04/27/2014 MADL ELEVATOR CONSTRUCTOR SUPERVISOR, ANSON L 704.00 ALOPECIA UNSPECIFIED 04/27/2014 CARMEN GIBBS MD N 704.00 ALOPECIA UNSPECIFIED 04/27/2014 CARMEN GIBBS MD N 704.00 ALOPECIA UNSPECIFIED 04/27/2014 MADL ELEVATOR CONSTRUCTOR SUPERVISOR, ANSON L 704.00 ALOPECIA UNSPECIFIED 04/27/2014 EMIL ROLON DO K 704.00 ALOPECIA UNSPECIFIED 05/10/2014 MADL ELEVATOR CONSTRUCTOR SUPERVISOR, ANSON L 786.52 PAINFUL RESPIRATION 05/10/2014 MADL ELEVATOR CONSTRUCTOR SUPERVISOR, ANSON L 786.52 PAINFUL RESPIRATION 05/10/2014 MICHELINE BAUMANN, RAQUEL R 786.52 PAINFUL RESPIRATION 05/10/2014 ELLIOT MORENO DDS J 786.52 PAINFUL RESPIRATION 05/10/2014 CARMEN GIBBS MD N 786.52 PAINFUL RESPIRATION 05/10/2014 MADL ELEVATOR CONSTRUCTOR SUPERVISOR, ANSON L 786.52 PAINFUL RESPIRATION 05/10/2014 CARMEN GIBBS MD N 786.52 PAINFUL RESPIRATION 05/10/2014 CARMEN GIBBS MD N 786.52 PAINFUL RESPIRATION 05/10/2014 MADANSON Leblanc APRN L 786.52 PAINFUL RESPIRATION 05/10/2014 EMIL ROLON DO 786.52 PAINFUL RESPIRATION 05/25/2014 MICHELINE ELEVATOR CONSTRUCTOR SUPERVISOR, RAQUEL R 461.9 SINUSITIS ACUTE 05/25/2014 MICHELINE ELEVATOR CONSTRUCTOR SUPERVISOR, RAQUEL R 709.9 UNSPECIFIED DISORDER OF SKIN AND SUBCUTANEOUS TISSUE 05/25/2014 MICHELINE ELEVATOR CONSTRUCTOR SUPERVISOR, RAQUEL R 784.0 HEADACHE 05/25/2014 WHITE DDS, [...] TOMAS MD Ot V74.8 05/28/2014 LAZARO HURTADO SHAFTING WORKER Ot 278.01 05/28/2014 LAZARO HURTADO SHAFTING WORKER Ot 401.9 05/28/2014 LAZARO HURTADO SHAFTING WORKER Ot 786.09 05/28/2014 LAZARO HURTADO SHAFTING WORKER Ot V85.42 05/31/2014 JOSH DDS, ELLIOT J [...] 381.81 DYSFUNCTION OF EUSTACHIAN TUBE 08/09/2014 SHERI ELEVATOR CONSTRUCTOR SUPERVISORANSON Christie L 381.81 DYSFUNCTION OF EUSTACHIAN TUBE 08/09/2014 ROLON SUDHIR GAMINGA K 381.81 DYSFUNCTION OF EUSTACHIAN TUBE 08/17/2014 CARMEN GIBBS MD N 782.0 DISTURBANCE OF SKIN SENSATION 08/17/2014 CARMEN GIBBS MD N 790.29 ABNORMAL GLUCOSE 08/17/2014 MADL ELEVATOR CONSTRUCTOR SUPERVISORLETICIA ChristieA L 782.0 DISTURBANCE OF SKIN SENSATION 08/17/2014 MADL ELEVATOR CONSTRUCTOR SUPERVISORLETICIA ChristieA L 790.29 ABNORMAL GLUCOSE 08/17/2014 ROLON DO MEIL K 782.0 DISTURBANCE OF SKIN SENSATION 08/17/2014 ROLON DO EMIL K 790.29 ABNORMAL GLUCOSE 08/28/2014 CARMEN GIBBS MD N 698.9 PRURITUS NOS 08/28/2014 MADeBnji ELEVATOR CONSTRUCTOR SUPERVISOR, ANSON L 698.9 PRURITUS NOS 08/28/2014 ROLON SUDHIR GAMINGA K 698.9 PRURITUS NOS 09/04/2014 GEORGES FINN APRN Ot 723.1 CERVICALGIA 09/06/2014 LETICIA AWDE APRNA L 724.5 BACKACHE UNSPECIFIED 09/06/2014 ROLON [...] TOMAS MD Ot V74.8 06/02/2015 LAZARO HURTADO SHAFTING WORKER Ot 278.01 06/02/2015 LAZARO HURTADO SHAFTING WORKER Ot 401.9 06/02/2015 LAZARO HURTADO SHAFTING WORKER Ot 786.09 06/02/2015 LAZARO HURTADO SHAFTING WORKER Ot V85.42 06/02/2015 DEE BAH MD Ot 723.0 06/02/2015 DEE BAH MD Ot 724.02 06/02/2015 ROCHELLE CANNON MD Ot M77.8 06/08/2015 ROCHELLE CANNON MD Ot M22.41 CHONDROMALACIA PATELLAE, RIGHT KNEE 06/08/2015 ROCHELLE CANNON MD Ot M23.221 DERANG OF POST HORN OF MEDIAL MENSC D/T 06/08/2015 ROCHELLE CANNON MD Ot Z79.899 OTHER MANAGER ANIMATION (CURRENT) DRUG THERAPY 06/08/2015 ROCHELLE CANNON MD [...] TOMAS MD Ot V74.8 06/14/2015 LAZARO HURTADO SHAFTING WORKER Ot 278.01 06/14/2015 LAZARO HURTADO SHAFTING WORKER Ot 401.9 06/14/2015 LAZARO HURTADO SHAFTING WORKER Ot 786.09 06/14/2015 LAZARO HURTADO SHAFTING WORKER Ot V85.42 06/14/2015 NIURKA PARISH, DEE Alston Ot 723.0 06/14/2015 NIURKA PARISH, [...] MDNY L Ot V74.8 08/31/2015 LAZARO HURTADO SHAFTING WORKER Ot 278.01 08/31/2015 LAZARO HURTADO SHAFTING WORKER Ot 401.9 08/31/2015 LAZARO HURTADO SHAFTING WORKER Ot 786.09 08/31/2015 LAZARO HURTADO SHAFTING WORKER Ot V85.42 08/31/2015 DEE BAH MD Ot [...] MASS INDEX 40.0-44.9, ADULT 12/21/2015 RONY ALDANA ELEVATOR CONSTRUCTOR SUPERVISOR Ot 571.8 CHRONIC LIVER DIS NEC 12/21/2015 TATA TOMAS MD Ot 724.70 DISORDER OF COCCYX NOS 12/21/2015 TATA TOMAS MD Ot V72.63 PRE-PROCEDURAL LABORATORY EXAMINATION 12/21/2015 TATA TOMAS MD Ot V74.8 SCREEN-BACTERIAL DIS NEC 12/21/2015 LAZARO HURTADO SHAFTING WORKER Ot 278.01 MORBID OBESITY 12/21/2015 LAZARO HURTADO SHAFTING WORKER Ot 401.9 HYPERTENSION NOS 12/21/2015 LAZARO HURTADO SHAFTING WORKER Ot 786.09 RESPIRATORY ABNORM NEC 12/21/2015 LAZARO HURTADO SHAFTING WORKER Ot V85.42 BODY MASS INDEX 45.0-49.9, ADULT [...] OF MEDIAL MENISCUS, CURRENT INJ 05/30/2016 ROCHELLE CANNON MD Ot M22.41 CHONDROMALACIA PATELLAE, RIGHT KNEE 05/30/2016 ROCHELLE CANNON MD Ot M23.203 DERANG OF UNSP MEDIAL MENISCUS DUE TO OL 05/30/2016 DAVIS [place], ROCHELLE Salgado Ot Z79.899 OTHER MANAGER ANIMATION (CURRENT) DRUG THERAPY 05/31/2016 ROCHELLE CANNON MD Ot M22.41 CHONDROMALACIA PATELLAE, RIGHT KNEE 05/31/2016 ROCHELLE CANNON MD Ot M23.203 DERANG OF UNSP MEDIAL MENISCUS DUE TO OL 05/31/2016 [place], ROCHELLE Salgado Ot Z79.899 OTHER MCC (CURRENT) DRUG THERAPY 06/14/2016 ROCHELLE CANNON MD Ot M22.41 CHONDROMALACIA PATELLAE, RIGHT KNEE 06/14/2016 ROCHELLE CANNON MD Ot M23.203 DERANG OF UNSP MEDIAL MENISCUS DUE TO OL 06/14/2016 ROCHELLE CANNON MD Ot Z79.899 OTHER MANAGER ANIMATION (CURRENT) DRUG THERAPY 06/17/2016 GEORGES FINN APRN [...] MASS INDEX 40.0-44.9, ADULT 06/24/2016 RONY ALDANA ELEVATOR CONSTRUCTOR SUPERVISOR Ot 571.8 CHRONIC LIVER DIS NEC 06/24/2016 TATA TOMAS MD Ot 724.70 DISORDER OF COCCYX NOS 06/24/2016 TATA TOMAS MD, Ot V72.63 PRE-PROCEDURAL LABORATORY EXAMINATION 06/24/2016 TATA TOMAS MD, Ot V74.8 SCREEN-BACTERIAL DIS NEC 06/24/2016 LAZARO HURTADO SHAFTING WORKER Ot 278.01 MORBID OBESITY 06/24/2016 LAZARO HURTADO SHAFTING WORKER Ot 401.9 HYPERTENSION NOS 06/24/2016 LAZARO HURTADO SHAFTING WORKER Ot 786.09 RESPIRATORY ABNORM NEC 06/24/2016 LAZARO HURTADOP Ot V85.42 BODY MASS INDEX 45.0-49.9, ADULT 06/24/2016 DEE BAH MD Ot 723.0 CERVICAL SPINAL STENOSIS 06/24/2016 DEE BAH MD Ot 724.02 SPINAL STENOSIS, LUMBAR REG, W/OUT NEURO 06/24/2016 ROCHELLE CANNON MD, Ot M77.8 OTHER ENTHESOPATHIES, [...] SCREEN-BACTERIAL DIS NEC 08/05/2016 LAZARO HURTADO L SHAFTING WORKER Ot 278.01 MORBID OBESITY 08/05/2016 BAILAZARO HAHN L SHAFTING WORKER Ot 401.9 HYPERTENSION NOS 08/05/2016 BAIMA LAZARO L SHAFTING WORKER Ot 786.09 RESPIRATORY ABNORM NEC 08/05/2016 LAZARO HURTADO SHAFTING WORKER Ot V85.42 BODY MASS INDEX 45.0-49.9, ADULT [...] MASS AND LUMP, NECK 10/11/2016 DAVID, GEOVANI SHAFTING WORKER Ot R05 COUGH 10/11/2016 DAVID, GEOVANI SHAFTING WORKER Ot R10.12 LEFT UPPER QUADRANT PAIN 10/11/2016 DAVID, GEOVANI SHAFTING WORKER Ot Z87.19 PERSONAL HISTORY OF OTHER DISEASES OF 10/12/2016 DAVID, GEOVANI SHAFTING WORKER Ot R05 COUGH 10/12/2016 DAVID, GEOVANI SHAFTING WORKER Ot R10.12 LEFT UPPER QUADRANT PAIN 10/12/2016 DAVID, GEOVANI SHAFTING WORKER Ot Z87.19 PERSONAL HISTORY OF OTHER DISEASES [...] Ot 724.79 DISORDER OF COCCYX NEC 10/26/2016 LUSI MORENO MD Ot V58.69 OTH MED,LT,CURRENT USE 10/26/2016 LUIS MORENO MD Ot V85.41 BODY MASS INDEX 40.0-44.9, ADULT 10/26/2016 RONY ALDANA ELEVATOR CONSTRUCTOR SUPERVISOR Ot 571.8 CHRONIC LIVER DIS NEC 10/26/2016 TATA TOMAS MD Ot 724.70 DISORDER OF COCCYX NOS 10/26/2016 TATA TOMAS MD Ot V72.63 PRE-PROCEDURAL LABORATORY EXAMINATION 10/26/2016 TATA TOMAS MD Ot V74.8 SCREEN-BACTERIAL DIS NEC 10/26/2016 LAZARO HURTADO SHAFTING WORKER Ot 278.01 MORBID OBESITY 10/26/2016 LAZARO HURTADO SHAFTING WORKER Ot 401.9 HYPERTENSION NOS 10/26/2016 LAZARO HURTADO SHAFTING WORKER Ot 786.09 RESPIRATORY ABNORM NEC 10/26/2016 LAZARO HURTADO SHAFTING WORKER Ot V85.42 BODY MASS INDEX 45.0-49.9, ADULT [...] 03/14/2017 YUKI MARCH MD Ot Z79.899 OTHER MCC (CURRENT) DRUG THERAPY 03/15/2017 YUKI MARCH MD Ot F41.9 ANXIETY DISORDER, UNSPECIFIED 03/15/2017 YUKI MARCH MD Ot G43.909 MIGRAINE, UNSP, NOT INTRACTABLE, WITHOUT 03/15/2017 YUKI MARCH MD Ot N28.89 OTHER SPECIFIED DISORDERS OF KIDNEY AND 03/15/2017 YUKI MARCH MD Ot R10.10 UPPER ABDOMINAL PAIN, UNSPECIFIED 03/15/2017 YUKI MARCH MD Ot R10.13 EPIGASTRIC PAIN 03/15/2017 YUKI MARCH MD Ot Z79.899 OTHER MANAGER ANIMATION (CURRENT) DRUG THERAPY 03/18/2017 YUKI MARCH MD Ot F41.9 ANXIETY DISORDER, UNSPECIFIED 03/18/2017 YUKI MARCH MD Ot G43.909 MIGRAINE, UNSP, NOT INTRACTABLE, WITHOUT 03/18/2017 YUKI MARCH MD Ot N28.89 OTHER SPECIFIED DISORDERS OF KIDNEY AND 03/18/2017 YUKI MARCH MD Ot R10.10 UPPER ABDOMINAL PAIN, UNSPECIFIED 03/18/2017 YUKI MARCH MD Ot R10.13 EPIGASTRIC PAIN 03/18/2017 YUKI MARCH MD Ot Z79.899 OTHER MANAGER ANIMATION (CURRENT) DRUG THERAPY 03/20/2017 YUKI MARCH MD Ot F41.9 ANXIETY DISORDER, UNSPECIFIED 03/20/2017 YUKI MARCH MD Ot G43.909 MIGRAINE, UNSP, NOT INTRACTABLE, WITHOUT 03/20/2017 YUKI MARCH MD Ot N28.89 OTHER SPECIFIED DISORDERS OF KIDNEY AND 03/20/2017 YUKI MARCH MD Ot R10.10 UPPER ABDOMINAL PAIN, UNSPECIFIED 03/20/2017 YUKI MARCH MD Ot R10.13 EPIGASTRIC PAIN 03/20/2017 YUKI MARCH MD Ot Z79.899 OTHER MANAGER ANIMATION (CURRENT) DRUG THERAPY 04/13/2017 GEORGES FINN APRN [...] Ot Z90.5 ACQUIRED ABSENCE OF KIDNEY 04/13/2017 GEORGES FINN APRN Ot Z90.710 ACQUIRED ABSENCE [...] MD, Ot V74.8 SCREEN-BACTERIAL DIS NEC 05/30/2017 LAZARO HURTADO SHAFTING WORKER Ot 278.01 MORBID OBESITY 05/30/2017 BRYANTLAZARO Benji SHAFTING WORKER Ot 401.9 HYPERTENSION NOS 05/30/2017 BRYANTLAZARO Benji SHAFTING WORKER Ot 786.09 RESPIRATORY ABNORM NEC 05/30/2017 LAZARO HURTADO SHAFTING WORKER Ot V85.42 BODY MASS INDEX 45.0-49.9, ADULT [...] Performed By Performed On OtolarynRochelle Cat 03/28/2010 33619 PAP SMEAR 08/02/2011 59472 EXCISION BENIGN LESION 1.1- 2 cm (specify location in Med[facility] descriiption) 05/12/2012 S0630 SUTURE REMOVAL 05/19/2012 97977 SKIN TISSUE PROCEDURE 06/05/2013 14867 US LIVER ULTRASOUND 06/05/2013 37900 OXIMETRY 09/12/2013 47475 OXIMETRY 09/16/2013 90271 THERAPUTIC INJ SQ/IM 09/16/2013 J2930 SOLUMEDROL INJ 09/16/2013 48180 OXIMETRY 09/17/2013 84357 XRAY ELBOW R 2 VIEWS 09/23/2013 13666 CULTURE UROGENITAL 09/24/2013 J2550 PHENERGAN INJECTION UP TO 50 MG 10/28/2013 44505 THERAPUTIC INJ SQ/IM 10/28/2013 07518 LIVER PANEL (LFT) 10/28/2013 94007 LIPASE 10/28/2013 68125 CBC 10/28/2013 21064 ROUTINE VENIPUNCTURE 01/21/2014 64227 UA W/ CULTURE IF INDICATED 01/21/2014 94515 CBC 01/22/2014 8193042 GFR CALC (RESULT ONLY) 01/22/2014 01924 CMP 01/22/2014 20979 CMP 04/27/2014 90324 TSH 04/27/2014 96444 CBC 04/27/2014 14632 ROUTINE VENIPUNCTURE 04/27/2014 76751 ROUTINE VENIPUNCTURE 05/10/2014 71293 XRAY RIBS RIGHT UNILATERAL 2 OR MORE VIEWS 05/10/2014 43595 UA W/ CULTURE IF INDICATED 05/10/2014 78542 CBC 05/10/2014 6555340 GFR CALC (RESULT ONLY) 05/10/2014 72014 CMP 05/10/2014 90001 AMYLASE 05/10/2014 93582 LIPASE 05/10/[address] ABDOMEN & PELVIS W/ & W/ O CONTRAST 05/17/2014 00603 XRAY CERVICAL SPINE, 2 OR 3 VIEWS 09/06/2014 00248 XRAY THORACIC SPINE 2 VIEWS 09/06/2014 10730 XRAY LUMBAR SPINE 2 OR 3 VIEWS [...] identification in genital specimen by aerobe culture [id number] NRG FREE TEXT EXTERNAL 2 PLUS NORMAL IRSHI NRG FREE TEXT EXTERNAL 3 MODERATE NORMAL [...] 05/30/17 14:20 URINE CULTURE RESULTS >100,000/ML NRG Complete urinalysis with reflex to culture - 06/29/17 19:02 Urine color determination YELLOW NRG Urine clarity [...] erythrocyte count by microscopy (number/high power field) RARE NRG Automated urine sediment leukocyte count by microscopy (number/high power field ) [HPF] NRG Bacteria detection in urine sediment by light microscopy MODERATE NRG Squamous epithelial cells detection in urine sediment by light microscopy >50 NRG Crystals detection in urine sediment by light microscopy NONE NRG Casts detection in urine sediment by light microscopy NONE NRG Mucus detection in urine sediment by light microscopy NEGATIVE NRG Complete urinalysis with reflex to culture NO NRG Renal epithelial cells detection in urine sediment by light microscopy NONE NRG Complete blood count (CBC) with automated white blood cell (WBC) differential - 06/29/17 20:10 Blood leukocytes automated count (number/volume) 9.3 10*3/uL 4.3-11.0 Blood erythrocytes automated count (number/volume) 4.30 10*6/uL 4.35-5.85 Venous blood hemoglobin measurement (mass/volume) 12.1 g/dL 11.5-16.0 Blood hematocrit (volume fraction) 37 % 35-52 Automated erythrocyte mean corpuscular volume 85 [foz_us] 80-99 Automated erythrocyte mean corpuscular hemoglobin (mass per erythrocyte) 28 pg 25-34 Automated erythrocyte mean corpuscular hemoglobin concentration measurement ( mass/volume) 33 g/dL 32-36 Automated erythrocyte distribution width ratio 13.8 % 10.0-14.5 Automated blood platelet count (count/volume) 299 10*3/uL 130-400 Automated blood platelet mean volume measurement 9.3 [foz_us] 7.4-10.4 Automated blood neutrophils/100 leukocytes 59 % 42-75 Automated blood lymphocytes/100 leukocytes 34 % 12-44 Blood monocytes/100 leukocytes 5 % 0-12 Automated blood eosinophils/100 leukocytes 3 % 0-10 Automated blood basophils/100 leukocytes 0 % 0-10 Blood neutrophils automated count (number/volume) 5.5 10*3 1.8-7.8 Blood lymphocytes automated count (number/volume) 3.1 10*3 1.0-4.0 Blood monocytes automated count (number/volume) 0.4 10*3 0.0-1.0 Automated eosinophil count 0.3 10*3/uL 0.0-0.3 Automated blood basophil count (count/volume) 0.0 10*3/uL 0.0-0.1 Comprehensive metabolic panel - 06/29/17 20:10 Serum or plasma sodium measurement (moles/volume) 140 mmol/L 135-145 Serum or plasma potassium measurement (moles/volume) 3.9 mmol/L 3.6-5.0 Serum or plasma chloride measurement (moles/volume) 104 mmol/L 98-107 Carbon dioxide 25 mmol/L 21-32 Serum or plasma anion gap determination (moles/volume) 11 mmol/L 5-14 Serum or plasma urea nitrogen measurement (mass/volume) 12 mg/dL 7-18 Serum or plasma creatinine measurement (mass/volume) 0.79 mg/dL 0.60-1.30 Serum or plasma urea nitrogen/creatinine mass ratio 15 NRG Serum or plasma creatinine measurement with calculation of estimated glomerular filtration rate > NRG Serum or plasma glucose measurement (mass/volume) 84 mg/dL 70-105 Serum or plasma calcium measurement (mass/volume) 9.5 mg/dL 8.5-10.1 Serum or plasma total bilirubin measurement (mass/volume) 0.2 mg/dL 0.1-1.0 Serum or plasma alkaline phosphatase measurement (enzymatic activity/volume) 55 U/L 40-136 Serum or plasma aspartate aminotransferase measurement (enzymatic activity/ volume) 20 U/L 5-34 Serum or plasma alanine aminotransferase measurement (enzymatic activity/volume ) 18 U/L 0-55 Serum or plasma protein measurement (mass/volume) 7.0 g/dL 6.4-8.2 Serum or plasma albumin measurement (mass/volume) 3.7 g/dL 3.2-4.5 Serum or plasma amylase measurement (enzymatic activity/volume) - 06/29/17 20: 10 Serum or plasma amylase measurement (enzymatic activity/volume) 63 U /L 25-125 Lipase - 06/29/17 20:10 Lipase 49 U/L 8-78 Serum or plasma C reactive protein measurement (mass/volume) - 06/29/17 20:10 Serum or plasma C reactive protein measurement (mass/volume) 1.05 mg /dL 0.00-0.50 Influenza virus A and B antigen detection - 06/29/17 20:10 FLU RESULT NEGATIVE FOR INFLUENZA A AND B ANTIGENS BY IA NRG Encounters ACCT No. Visit Date/Time Discharge Status Pt. Type Provider Facility Loc./Unit Complaint [id number] 09/06/2014 08:47:00 09/06/2014 23:59:59 CLS Outpatient EMIL ROLON DO [id number] 09/06/2014 08:47:00 09/06/2014 23:59:59 CLS Outpatient ANSON WADE APRN [id number] 08/17/2014 09:19:00 08/17/2014 23:59:59 CLS Outpatient CARMEN GIBBS MD [id number] 07/21/2014 07:46:00 07/21/2014 23:59:59 CLS Outpatient CARMEN GIBBS MD [id number] 07/05/2014 10:18:00 07/05/2014 23:59:59 CLS Outpatient ANSON WADE APRN [id number] 06/03/2014 15:45:00 06/03/2014 23:59:59 CLS Outpatient CARMEN GIBBS MD [id number] 05/31/2014 12:15:00 05/31/2014 23:59:59 CLS Outpatient ELLIOT MORENO DDS [id number] 05/25/2014 10:56:00 05/25/2014 23:59:59 CLS Outpatient RAQUEL TOBIAS APRN R [id number] 05/17/2014 10:52:00 05/17/2014 23:59:59 CLS Outpatient ANSON WADE APRN L [id number] 05/10/2014 09:54:00 05/10/2014 23:59:59 CLS Outpatient ANSON WADE APRN L [id number] 04/27/2014 13:25:00 04/27/2014 23:59:59 CLS Outpatient CARMEN GIBBS MD [id number] 03/30/2014 15:35:00 03/30/2014 23:59:59 CLS Outpatient MALACHI TOBIAS APRNINA R [id number] 02/24/2014 14:34:00 02/24/2014 23:59:59 CLS Outpatient EMERY LOBATO APRNKAR Dean [id number] 02/05/2014 15:30:00 02/05/2014 23:59:59 CLS Outpatient CARMEN GIBBS MD [id number] 01/21/2014 15:35:00 01/21/2014 23:59:59 CLS Outpatient EMIL ROLON DO [id number] 01/13/2014 00:00:00 01/13/2014 23:59:59 CLS Outpatient RAQUEL TOBIAS APRN R [id number] 12/15/2013 14:31:00 12/15/2013 23:59:59 CLS Outpatient CARMEN GIBBS MD [id number] 11/03/2013 09:45:00 11/03/2013 23:59:59 CLS Outpatient ANSON WADE APRN Benji [id number] 10/28/2013 15:00:00 10/28/2013 23:59:59 CLS Outpatient LUIS ALFREDO BAUMANN BRENNA R [id number] 10/28/2013 15:00:00 10/28/2013 23:59:59 CLS Outpatient LUIS ALFREDO YUBRENNA Christie [id number] 09/28/2013 08:54:00 09/28/2013 23:59:59 CLS Outpatient OSMAN ALVAREZ APRN [id number] 09/23/2013 10:48:00 09/23/2013 23:59:59 CLS Outpatient EMIL ROLON DO [id number] 09/23/2013 10:48:00 09/23/2013 23:59:59 CLS Outpatient EMIL ROLON DO [id number] 09/17/2013 14:15:00 09/17/2013 23:59:59 CLS Outpatient EMIL ROLON DO [id number] 09/16/2013 14:57:00 09/16/2013 23:59:59 CLS Outpatient EMIL ROLON DO [id number] 09/16/2013 14:57:00 09/16/2013 23:59:59 CLS Outpatient EMIL ROLON DO Vickey [id number] 09/12/2013 13:04:00 09/12/2013 23:59:59 CLS Outpatient OSMAN ALVAREZ APRN [id number] 09/03/2013 11:29:00 09/03/2013 23:59:59 CLS Outpatient CARMEN GIBBS MD [id number] 07/01/2013 08:59:00 07/01/2013 23:59:59 CLS Outpatient CARMEN GIBBS MD [id number] 06/05/2013 14:44:00 06/05/2013 23:59:59 CLS Outpatient EMIL ROLON DO Vickey [id number] 06/02/2013 12:44:00 06/02/2013 23:59:59 CLS Outpatient RAQUEL LOPEZ DDS [id number] 05/29/2013 15:47:00 05/29/2013 23:59:59 CLS Outpatient CARMEN GIBBS MD [id number] 05/27/2013 09:28:00 05/27/2013 23:59:59 CLS Outpatient CARMEN GIBBS MD [id number] 05/12/2013 15:16:00 05/12/2013 23:59:59 CLS Outpatient ELLY DOUGLAS MD [id number] 08/20/2012 15:44:00 08/20/2012 23:59:59 CLS Outpatient GONZALES DOEMIL Vickey [id number] 07/07/2012 11:21:00 07/07/2012 23:59:59 CLS Outpatient BRENNA LOBATO APRN [id number] 07/02/2012 09:18:00 07/02/2012 23:59:59 CLS Outpatient [id number] 05/20/2012 10:05:00 05/20/2012 23:59:59 CLS Outpatient REGINO BOYD DDS [id number] 04/10/2012 08:55:00 04/10/2012 23:59:59 CLS Outpatient GONZALES EMIL GAMING [id number] 06/29/2017 18:40:00 06/29/2017 21:31:00 DIS Emergency YUKI MARCH MD Via [facility] ER DARK URINE,STOMACH PAIN, THROWING UP,PANCREATITIS [id number] 06/28/2017 10:00:00 06/28/2017 10:11:00 DIS Outpatient YUNIOR LYLES MD [facility] PREOP COLONOSCOPY [id number] 05/30/2017 13:43:00 05/30/2017 15:03:00 DIS Emergency GEORGES FINN ELEVATOR CONSTRUCTOR SUPERVISOR [facility] ER CANNOT URINATE [id number] 04/30/2017 01:09:00 04/30/2017 03:16:00 DIS Emergency YAN CHAPARRO DO [facility] ER LOWER ABD PAIN [id number] 04/17/2017 20:45:00 04/18/2017 01:11:00 DIS Emergency KIARA MORRISON [facility] ER ABDOMINAL PAIN,KIDNEY SURGERY ON 04/10 [id number] 04/13/2017 16:02:00 04/13/2017 18:36:00 DIS Emergency GEORGES FINN ELEVATOR CONSTRUCTOR SUPERVISOR [facility] ER NO BOWEL MOVEMENT, KIDNEY SURGERY ON 04/10,RASH [id number] 03/14/2017 00:17:00 03/14/2017 06:22:00 DIS Emergency YUKI MARCH MD [facility] ER ABD PAIN [id number] 03/07/2017 08:45:00 03/07/2017 12:32:00 DIS Emergency IZABELA RENDON MD [facility] ER ABD PAIN [id number] 02/21/2017 06:02:00 02/21/2017 07:06:00 DIS Emergency MAKAYLA HAWKINS MD [facility] ER GLENNA ON NECK-HOT,MEJIA, HURTS TO SWALLOW [id number] 01/30/2017 23:32:00 01/31/2017 00:22:00 DIS Emergency YAN CHAPARRO DO [facility] ER POSS ALLERGIC RXN [id number] 12/01/2016 16:29:00 12/01/2016 19:04:00 DIS Emergency ADRIÁN PARKS MD [facility] ER FEVER/THROAT PAIN [id number] 10/26/2016 12:59:00 10/26/2016 14:50:00 DIS Emergency KIARA MORRISON [facility] ER VAGINAL DISCOMFORT [id number] 10/11/2016 15:52:00 10/11/2016 18:28:00 DIS Emergency GEOVANI HERNANDEZ [facility] ER SOA,ABD PAIN WHEN BREATHING, NUMBNESS IN ARMS [id number] 08/28/2016 08:49:00 08/28/2016 23:59:59 CLS Outpatient CARMEN GIBBS MD [facility] RAD NECK MASS [id number] 08/16/2016 12:45:00 08/16/2016 23:59:59 CLS Preadmit CARMEN GIBBS MD [facility] RAD HEMOPLYSIS,NECK MASS [id number] 08/16/2016 12:21:00 08/16/2016 23:59:59 CLS Outpatient CARMEN GIBBS MD [facility] RAD HEMOPLYSIS,NECK MASS [id number] 08/05/2016 10:59:00 08/05/2016 14:43:00 DIS Emergency KIARA MORRISON [facility] ER ABD PAIN TO BACK [id number] 06/24/2016 09:45:00 06/24/2016 11:04:00 DIS Emergency ADRIÁN PARKS MD [facility] ER SORE THROAT/COUGH/GREEN SPUTUM/DIZZY [id number] 05/30/2016 06:46:00 05/30/2016 10:08:00 DIS [facility] MENISCUS [id number] 05/23/2016 10:59:00 05/23/2016 12:12:00 DIS Emergency GEORGES FINN ELEVATOR CONSTRUCTOR SUPERVISOR [facility] ER FATIGUE [id number] 05/23/2016 09:58:00 05/23/2016 10:43:00 DIS Outpatient ROCHELLE CANNON MD [facility] PREOP RIGHT KNEE TORN MEDIAL MENISCUS [id number] 05/02/2016 15:02:00 05/02/2016 23:59:59 CLS Outpatient ROCHELLE CANNON MD [facility] RAD [id number] 03/05/2016 16:10:00 03/05/2016 19:42:00 DIS Emergency YUKI MARCH MD [facility] ER VAGINAL BLEEDING [id number] 12/21/2015 10:36:00 12/21/2015 14:35:00 DIS Inpatient CARMEN GIBBS MD [facility] 4TH CELLULITIS [id number] 12/19/2015 11:50:00 12/19/2015 14:29:00 DIS Emergency GEORGES FINN APRN Via [facility] ER RIGHT LEG PAIN [id number] 12/18/2015 12:43:00 12/18/2015 16:00:00 DIS Emergency KIARA MORRISON [facility] ER R LEG KNOT POST SURGERY [id number] 12/12/2015 09:12:00 12/12/2015 23:59:59 CLS Outpatient ROCHELLE CANNON MD [facility] RAD DVT [id number] 11/24/2015 13:16:00 11/24/2015 23:59:59 CLS Outpatient ROCHELLE CANNON MD [facility] RAD MEDIAL MENISCUS TEAR [id number] 09/06/2015 07:15:00 09/06/2015 13:25:00 DIS Outpatient YUNIOR LYLES MD [facility] SDC LYMPHADEROPATHY [id number] 08/31/2015 11:25:00 08/31/2015 11:53:00 DIS Outpatient YUNIOR LYLES MD [facility] PREOP LIMP NODE [id number] 06/22/2015 10:51:00 06/22/2015 23:59:59 CLS Preadmit CARMEN GIBBS MD [facility] REHAB [id number] 06/08/2015 06:16:00 06/08/2015 11:35:00 DIS Outpatient ROCHELLE CANNON MD [facility] SDC RIGHT KNEE TORN MEDIAL MENISCUS [id number] 06/02/2015 10:22:00 06/02/2015 23:59:59 CLS Outpatient CARMEN GIBBS MD [facility] LAB HLP [id number] 06/02/2015 10:13:00 06/02/2015 23:59:59 CLS Outpatient ROCHELLE CANNON MD [facility] PREOP RIGHT KNEE TORN MEDIAL MENISCUS [id number] 05/19/2015 08:58:00 05/19/2015 23:59:59 CLS Outpatient ROCHELLE CANNON MD [facility] RAD QUADRICEPT TENDONITIS [id number] 01/12/2015 14:32:00 01/12/2015 23:59:59 CLS Outpatient DEE BAH MD [facility] RAD CERVICAL STENOSIS LUMBAR STENOSIS [id number] 11/23/2014 23:46:00 11/24/2014 02:37:00 DIS Emergency JUSTICE PARISH, IZABELA Martinez [facility] ER ABD PAIN [id number] 09/13/2014 09:03:00 09/13/2014 11:31:00 DIS Emergency JUSTICE PARISH, IZABELA Martinez [facility] ER BACK PAIN [id number] 09/04/2014 13:48:00 09/04/2014 15:54:00 DIS Emergency GEORGES FINN ELEVATOR CONSTRUCTOR SUPERVISOR [facility] ER BACK PAIN [id number] 05/28/2014 01:35:00 05/28/2014 03:07:00 DIS Emergency ISSAC MASTERS MD [facility] ER POSS ALLERGIC RXN,HEAD PAIN [id number] 05/27/2014 08:20:00 05/27/2014 10:31:00 DIS Emergency RADHA MALLORY MD [facility] ER HEADACHE/NAUSEA [id number] 03/21/2014 17:22:00 03/21/2014 18:07:00 DIS Emergency YAN CHAPARRO DO [facility] ER CRAMPING [id number] 02/04/2014 08:30:00 02/04/2014 23:59:59 CLS Outpatient SHARONJOVANI LAZARO Leblanc KHOA [facility] CARD HTN,DYSPNEA [id number] 01/19/2014 13:10:00 01/19/2014 14:04:00 DIS Emergency SHANKAR YAN GAMING Via [facility] ER LOW BACK PAIN/UTI SYMPTOMS [id number] 11/20/2013 16:25:00 11/20/2013 17:42:00 DIS Emergency GEORGES FINN ELEVATOR CONSTRUCTOR SUPERVISOR [facility] ER BACK PAIN [id number] 10/29/2013 10:28:00 10/29/2013 12:02:00 DIS Emergency YAN CHAPARRO DO [facility] ER NAUSEATED/VOMITING [id number] 10/06/2013 15:24:00 10/06/2013 18:34:00 DIS Emergency KIARA MORRISON [facility] ER ABD PAIN [id number] 09/07/2013 07:08:00 09/08/2013 12:30:00 DIS Outpatient TATA TOMAS MD [facility] SDC COCCYGDYNIA [id number] 09/01/2013 13:39:00 09/01/2013 23:59:59 CLS Outpatient TATA TOMAS MD [facility] PREOP COCCYGDYNIA [id number] 07/31/2013 06:31:00 07/31/2013 07:53:00 DIS Outpatient LUIS MORENO MD [facility] CARD COCCYX PAIN [id number] 06/30/2013 07:14:00 06/30/2013 23:59:59 CLS Outpatient RONY ALDANA ELEVATOR CONSTRUCTOR SUPERVISOR [facility] RAD ELEVATED LIVER ENZYMES [id number] 06/25/2013 16:02:00 06/25/2013 19:00:00 DIS Emergency ISSAC MASTERS MD [facility] ER NAUSEA,VOMITING [id number] 06/04/2013 21:16:00 06/04/2013 21:44:00 DIS Emergency SHANKAR YAN GAMING [facility] ER WOUND CHECK [id number] 05/29/2013 20:51:00 05/30/2013 01:31:00 DIS Emergency KIARA MORRISON [facility] ER POSS ABSCESS [id number] 05/28/2013 10:15:00 05/28/2013 18:57:00 DIS Emergency YAN CHAPARRO DO [facility] ER LEFT LEG KNOT [id number] 05/11/2013 19:26:00 05/11/2013 19:56:00 DIS Emergency GEORGES FINN ELEVATOR CONSTRUCTOR SUPERVISOR [facility] ER RASH [id number] 05/03/2013 09:13:00 05/03/2013 11:33:00 DIS Emergency IZABELA RENDON MD [facility] ER ABD CRAMPING [id number] 03/08/2013 15:14:00 03/08/2013 16:28:00 DIS Emergency YAN CHAPARRO DO [facility] ER HEADACHE [id number] 02/12/2013 14:02:00 02/12/2013 16:12:00 DIS Emergency RADHA MALLORY MD [facility] ER HEADACHE [id number] 02/03/2013 09:00:00 02/03/2013 23:59:59 CLS Outpatient [id number] 01/25/2013 16:03:00 01/25/2013 16:39:00 DIS Emergency YAN CHAPARRO DO Via [facility] ER TAILBONE THROBS [id number] 01/23/2013 07:33:00 01/23/2013 23:59:59 CLS Outpatient LUIS MORENO MD [facility] CARD COCCYX PAIN [id number] 12/30/2012 11:28:00 12/30/2012 12:33:00 DIS Emergency JOHN GALDAMEZ MD [facility] ER LOOSING FEELING IN HANDS [id number] 11/29/2012 20:20:00 11/29/2012 21:04:00 DIS Emergency ISSAC MASTERS MD [facility] ER POST OP COMPLICATIONS [id number] 11/01/2012 13:48:00 11/01/2012 16:16:00 DIS Emergency YAN CHAPARRO DO [facility] ER R SIDE ABD PAIN [id number] 07/03/2017 11:00:00 PEN Preadmit YUNIOR LYLES MD [facility] ENDO HX POLYPS [id number] 05/28/2014 05:09:00 Document Registration [id number] 05/28/2014 05:09:00 Document Registration [id number] 05/28/2014 05:08:00 Document Registration [id number] 05/28/2014 05:08:00 Document Registration [id number] 05/28/2014 05:08:00 Document Registration [id number] 09/25/2012 15:23:00 Document Registration [id number] 07/09/2012 13:55:00 Document Registration [id number] 06/03/2012 18:43:00 Document Registration [id number] 05/28/2012 06:01:00 Document Registration [id number] 05/26/2012 07:40:00 Document Registration [id number] 04/29/2012 19:28:00 Document Registration [id number] 04/14/2012 20:36:00 Document Registration [id number] 04/02/2012 15:46:00 Document Registration [id number] 03/10/2012 08:51:00 Document Registration [id number] 02/02/2012 08:22:00 Document Registration [id number] 11/05/2011 18:15:00 Document Registration [id number] 10/09/2011 15:34:00 Document Registration [id number] 09/28/2011 12:13:00 Document Registration [id number] 08/20/2011 11:21:00 Document Registration [id number] 08/07/2011 12:50:00 Document Registration [id number] 06/19/2011 15:10:00 Document Registration [id number] 06/14/2011 10:23:00 Document Registration [id number] 04/26/2011 09:49:00 Document Registration [id number] 04/01/2011 15:48:00 Document Registration [id number] 01/14/2011 20:10:00 Document Registration [id number] 01/10/2011 01:57:00 Document Registration [id number] 12/29/2010 21:29:00 Document Registration [id number] 12/08/2010 18:15:00 Document Registration [id number] 11/16/2010 19:34:00 Document Registration [id number] 11/13/2010 17:20:00 Document Registration [id number] 10/07/2010 15:04:00 Document Registration [id number] 10/01/2010 20:35:00 Document Registration [id number] 09/29/2010 15:45:00 Document Registration [id number] 09/22/2010 00:30:00 Document Registration [id number] 09/20/2010 18:21:00 Document Registration [id number] 09/16/2010 19:14:00 Document Registration [id number] 09/06/2010 15:05:00 Document Registration [id number] 08/30/2010 16:23:00 Document Registration [id number] 07/31/2010 10:04:00 Document Registration [id number] 07/24/2010 05:42:00 Document Registration [id number] 07/12/2010 09:04:00 Document Registration [id number] 07/02/2010 12:40:00 Document Registration [id number] 06/07/2010 10:52:00 Document Registration [id number] 05/22/2010 18:40:00 Document Registration [id number] 05/09/2010 13:26:00 Document Registration [id number] 04/07/2010 16:51:00 Document Registration [id number] 03/31/2010 12:30:00 Document Registration [id number] 03/22/2010 20:54:00 Document Registration [id number] 02/13/2010 10:21:00 Document Registration [id number] 02/07/2010 17:04:00 Document Registration [id number] 02/05/2010 19:55:00 Document Registration [id number] 01/23/2010 10:58:00 Document Registration [id number] 01/09/2010 05:35:00 Document Registration [id number] 01/05/2010 07:39:00 Document Registration [id number] 12/13/2009 10:13:00 Document Registration [id number] 11/07/2009 17:37:00 Document Registration [id number] 11/03/2009 09:46:00 Document Registration
[2017-07-03] MEDS ORDERED: NS IV 500 ML 500 ML IV PRN (09:35)
[2017-07-03] MEDS ORDERED: LIDOCAINE JELLY 2% (XYLOCAINE) 5 ML TUBE MM PRN (09:45)
[2017-07-03 09:46] VITALS: BP 107/75
--- NOTE | 2017-07-03 10:39 | Conscious Sedation/ASA ---
Conscious Sedation Pre-Proced Time Reviewed: 10:00 ASA Class: 2 Airway Mallampati Classification: ([place] ira appropriate class) I. II. III, IV Lungs Heart ASA score ASA 1: a normal healthy patient ASA 2: a patient with a mild systemic disease (mid diabetes, controlled hypertension, obesity ASA 3: a patient with a severe systemic disease that limits activity (angina , COPD, prior Myocardial infarction) ASA 4: a patient with an incapacitating disease that is a constant threat to life (CHF, renal failure) ASA 5: a moribund patient not expected to survive 24 hrs. (ruptured aneurysm) ASA 6: a declared brain patient whose organs are being harvested. For emergent operations, add the letter E after the classification Grade 2 Sedation Plan: Analgesia, Amnesia, Plan communicated to team members, Discussed options with patient/fam, Discussed risks with patient/fam Note The patient is an appropriate candidate to undergo the planned procedure, sedation, and anesthesia. The patient immediately re-assessed prior to indication. YUNIOR LYLES MD Jul 03, 2017 10:39 am
--- NOTE | 2017-07-03 10:40 | Progress Note-Pre Operative ---
Pre-Operative Progress Note H&P Reviewed The H&P was reviewed, patient examined and no changes noted. Date Seen by Provider: Jul 03, 2017 Time Seen by Provider: 10:00 Date H&P Reviewed: Jul 03, 2017 Time H&P Reviewed: 10:00 Pre-Operative Diagnosis: hx renal cell ca YUNIOR LYLES MD Jul 03, 2017 10:40 am
[2017-07-03] MEDS ORDERED: LIDOCAINE JELLY 2% (XYLOCAINE) 5 ML TUBE ONE (10:44)
[2017-07-03] MEDS ORDERED: fentaNYL INJECTION 100 MCG/2 ML AMP ONE (10:44)
[2017-07-03] MEDS ORDERED: MIDAZOLAM 2 MG/2 ML (VERSED) VIAL ONE ×5 (10:44→10:45)
[2017-07-03] MEDS ORDERED: ACETAMINOPHEN 325 MG TABLET/CAPLET (TYLENOL) PO PRN (10:45)
[2017-07-03] MEDS ORDERED: HYDROcodone/APAP 5 MG/325 MG (LORTAB) TAB PO PRN (10:45)
[2017-07-03] MEDS ORDERED: ONDANSETRON 4 MG/2 ML (SDV) Z0FRAN IV PRN (10:45)
[2017-07-03] MEDS ORDERED: morphine INJ 10 MG/ML 1ML (SYR OR VIAL) IV PRN (10:45)
[2017-07-03] MEDS: MIDAZOLAM 2 MG/2 ML (VERSED) VIAL IVP PRN ×5 (10:59→11:29)
[2017-07-03] MEDS: fentaNYL INJECTION 100 MCG/2 ML AMP IVP PRN ×2 (11:06→11:16)
--- NOTE | 2017-07-03 11:47 | Progress Note-Post Operative ---
Post-Operative Progess Note Surgeon (s)/Health And Wellness Coordinator (s) Surgeon YUNIOR LYLES MD Health And Wellness Coordinator: none Pre-Operative Diagnosis hx renal cell ca Post-Operative Diagnosis chronic stage 2 ext and int hemorrhoids. Procedure & Operative Findings Date of Procedure 07/03/17 Procedure Performed/Findings Colonoscopy. Anesthesia Type CS Estimated Blood Loss Estimated blood loss (mL): minimal Specimens/Packing Specimens Removed none YUNIOR LYLES MD Jul 03, 2017 11:47 am
--- NOTE | 2017-07-03 11:49 | Discharge Inst-Surgical ---
D/C Lap Instructions-TRUPTI Follow Up 5yrs Activity as tolerated High Fiber Diet 25g or more per day Avoid Alcohol, Caffeine, Spicy Lillian and Acid foods. Drink 64 fluid oz or more of fluids per day. Symptoms to Report: Fever over 101 degree F, Nausea/Vomiting If any problems/questions: Contact your physician or go to Emergency Room YUNIOR LYLES MD Jul 03, 2017 11:49 am
[2017-07-03 12:05] VITALS: BP 123/46
[2017-07-03 12:35] VITALS: BP 92/52
[2017-07-03 12:40] VITALS: BP 92/52
--- NOTE | 2017-07-03 19:55 | OPERATIVE REPORT ---
DATE OF SERVICE: 07/03/2017 ATTENDING PRIMARY PHYSICIAN: Dr. Whittington. PREOPERATIVE DIAGNOSES: History of left renal cell cancer, history of colon tubular adenoma. POSTOPERATIVE DIAGNOSIS: Chronic stage II external and internal hemorrhoids. PROCEDURE: Colonoscopy. SURGEON: Dr. Lyles. ANESTHESIA: Conscious sedation. ESTIMATED BLOOD LOSS: Minimal. FINDINGS: Chronic stage II external and internal hemorrhoids, not actively edematous nor inflamed and no bleeding. The remainder of the rectum and colon were normal. There were no polyps or any neoplasms identified. DISPOSITION: The patient tolerated the procedure well. INDICATIONS: The patient is a 32-year-old female known to us. She has had issues with polyhidrosis as well as idiopathic chronic pancreatitis. She also has had issue with diabetes in the past. Approximately three months ago, she presented to the Emergency Department and found to have a tumor of the left kidney and referred to [facility] and this was found to be a renal cell cancer and underwent a left nephrectomy. She underwent an EGD on 06/19/2017 and was supposed to have a colonoscopy; however, had inadequate preparation. She did have a colonoscopy in 2009, which showed a tubular adenoma. She does have a family history of cancers in general with her mother having ovarian cancer as well as maternal grandmother as well as maternal grandfather having gastric cancer and maternal uncle with pancreatic cancer. She does not know any history of any colon cancer. DESCRIPTION OF PROCEDURE: The patient was brought to the endoscopy suite, laid in the left lateral decubitus position. After adequate IV pain and sedative medications and conscious sedation anesthesia, a digital rectal examination was performed. Chronic stage II external and internal hemorrhoids were identified which were not actively edematous nor inflamed and no bleeding. Normal sphincter tone was felt and there were no palpable masses. The endoscope was then intubated to the anus and rectum gently insufflated. The endoscope was then advanced to the valves of [place] of the rectum with no polyps or any neoplasms identified. The endoscope was then advanced through the sigmoid colon where no diverticulosis identified. The endoscope was then advanced to the remainder of the descending, transverse, ascending colon to the cecum. These segments were normal. There were no polyps or any neoplasms identified throughout the colon or rectum. The endoscope was then slowly withdrawn while taking a second look and suctioning of residual air with no additional findings. The patient tolerated the procedure well. We will recommend continued medical management with a high fiber diet with at least 25 to 30 grams of fiber per day as well as at least 64 fluid ounces of water daily to promote soft stools on a daily basis. With her strong family as well as personal history of cancers, she may have an inherited gene disorder which increases her chances of malignancy in general and she may benefit from screening modalities similar to colon cancer and have a colonoscopy every 5 years. Job ID: [id number] DocumentID: [id number] Dictated Date: 07/03/2017 11:46:59 Sales Clerk Supervisor Date: 07/03/2017 19:54:11 Dictated By: YUNIOR LYLES MD
== END 2017-07-03 12:40 | disposition home or self-care (01) ==
LOC: ENDO 08:18
PROVIDERS: ATTEND Surgery
DX: K64.1 Second degree hemorrhoids (principal); Z85.528 Personal history of other malignant neoplasm of kidney; Z86.010 Personal history of colon polyps; Z90.5 Acquired absence of kidney; F32.9 Major depressive disorder, single episode, unspecified; F41.9 Anxiety disorder, unspecified; G47.61 Periodic limb movement disorder; Z88.5 Allergy status to narcotic agent; Z79.899 Other long term (current) drug therapy

== ENCOUNTER 2017-07-22 21:09 | Emergency (ER) | payer MEDICARE, MEDICAID ==
[~2017-07-22] VITALS: Ht 160 cm; Wt 108.9 kg
[~2017-07-22 21:09] MED LIST changes: -HYDR-3816 PO
[2017-07-22] MEDS ORDERED: NS IV 1000 ML 1,000 ML IV ONE (23:19)
--- NOTE | 2017-07-22 23:27 | ED General ---
General Chief Complaint: Abdominal/GI Problems Stated Complaint: STOMACH PAIN Nursing Triage Note: c/o abd pain. Onset 1899. Mild nausea. Pt also c/o subjective swelling and pain to right leg which she noticed on Saturday. Nursing Sepsis Screen: No Definite Risk Source of Information: Patient Exam Limitations: No Limitations History of Present Illness Date Seen by Provider: Jul 22, 2017 Time Seen by Provider: 23:10 Initial Comments Here with complaints of both left-sided abdominal pain and right leg pain and swelling. She has history of cellulitis of the right leg and she is worried that this is coming back. She also has history of pancreatitis and renal carcinoma with left nephrectomy. She is still having bowel movements and still passing gas. Denies dysuria. Denies fever or chills. Timing/Duration: 12-24 Hours Severity: Moderate Associated Systoms: No Cough, No Fever/Chills, Nausea/Vomiting, No Shortness of Air, No Weakness Allergies and Home Medications Allergies Coded Allergies: meperidine (Verified Allergy, Unknown, 05/23/16) penicillin G (Verified Allergy, Unknown, 05/23/16) Home Medications Cholecalciferol (Vitamin D3) 2,000 Unit Tablet, 2,000 UNIT PO HS, (Reported) Estradiol 2 Mg Tablet, 3 MG PO HS, (Reported) TAKES 1 & 1/2 (2MG) TABLETS Ferrous Sulfate 325 Mg Tablet, 325 MG PO WEEK, (Reported) Fluoxetine HCl 40 Mg Capsule, 40 MG PO HS, (Reported) Oseltamivir Phosphate 75 Mg Capsule, 75 MG PO BID for 5 Days, #10 Ref 0 Prescribed by: YUKI MARCH on 06/29/172119 Ropinirole HCl 4 Mg Tablet, 4 MG PO HS, (Reported) Constitutional: see HPI, No chills, No fever Respiratory: no symptoms reported, No cough, No short of breath Cardiovascular: No chest pain, No edema Gastrointestinal: abdominal pain, nausea, No vomiting Genitourinary: no symptoms reported Musculoskeletal: no symptoms reported Skin: no symptoms reported All Other Systems Reviewed Negative Unless Noted: Yes Past Cdocgab-Gghomi-Menind Hx Patient Social History Alcohol Use: Denies Use Recreational Drug Use: No Smoking Status: Former Smoker 2nd Hand Smoke Exposure: No Recent Foreign Travel: No Contact w/Someone Who Travel: No Recent Infectious Disease Expo: No Recent Hopitalizations: No Immunizations Up To Date Tetanus Booster (TDap): Unknown Date of Pneumonia Vaccine: May 17, 2012 Date of Influenza Vaccine: Jul 03, 2012 Seasonal Allergies Seasonal Allergies: Yes (MILD) Surgeries History of Surgeries: Yes (R KNEE SCOPE X4 L X2, NASAL FX, EGD/COLONOSCOPY, COCCYX REMOVAL,) Surgeries: Abdominal, Adenoidectomy, Appendectomy, Gallbladder, 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, Nephrectomy, Orthopedic, Tonsillectomy Respiratory History of Respiratory Disorde: Yes (HASNT USED INHALER IN > 4 YRS) Respiratory Disorders: Asthma Currently Using CPAP: No Currently Using BIPAP: No Cardiovascular History of Cardiac Disorders: No Neurological History of Neurological Disord: Yes (RESTLESS LEG SYNDROME) Neurological Disorders: Headaches /Migraines 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 System Hx 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: Yes (HX ENDOMETRIOSIS ) Sexually Transmitted Disease: No HIV/AIDS: No 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, 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 [employer] History: 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 Genitourinary History of Genitourinary Disor: Yes (L KIDNEY REMOVED FOR TUMOR; FATTY LIVER/ ENLARGED LIVER) Genitourinary Disorders: UTI-Chronic Gastrointestinal History of Gastrointestinal Di: Yes (ENLARGED LIVER) Gastrointestinal Disorders: Pancreatitis, Polyps Musculoskeletal History of Musculoskeletal Dis: Yes (COCCYX-REPAIRED, MAY HAVE SIGNS OF ARTHRITIS) Musculoskeletal Disorders: Chronic Back Pain Endocrine History of Endocrine Disorders: No (CHRONIC PANCREATITIS) HEENT History of HEENT Disorders: No Loss of Vision: Denies Hearing Impairment: Denies Cancer History of Cancer: Yes Cancer: Kidney Type of Tx Receive: Surgical Intervention Psychosocial History of Psychiatric Problem: Yes Behavioral Health Disorders: Anxiety, Depression Integumentary History of Skin or Integumenta: No Skin/Integumentary Disorders: Herpes Blood Transfusions History of Blood Disorders: No Adverse Reaction to a Blood Tr: No Reviewed Nursing Assessment Reviewed/Agree w Nursing PMH: Yes Family Medical History Significant Family History: Cancer, Diabetes, Hypertension Family Medial History: Cardiovascular disease 19 FATHER Completed stroke 19 FATHER Diabetes mellitus 19 FATHER Hypercholesterolemia 19 FATHER 19 MOTHER Hypertension 19 FATHER 19 MOTHER Neoplasm 19 MOTHER Psychosocial problem 19 FATHER 19 MOTHER Physical Exam Vital Signs Vital Sign - Last 12Hours 07/22/17 22:10 Temp 97.5 Pulse 70 B/P (MAP) 141/73 (95) Pulse Ox 98 O2 Delivery Room Air Capillary Refill : Less Than 3 Seconds General Appearance: No Apparent Distress, WD/WN HEENT: PERRL/EOMI, Pharynx Normal Neck: Non Tender, Supple Respiratory: Lungs Clear, Normal Breath Sounds Cardiovascular: Regular Rate, Rhythm, No Murmur Gastrointestinal: Non Tender, Soft Extremity: Normal Range of Motion, No Pedal Edema, Other (right lower extremity with mild redness to the area between the ankle and the knee. Mild tenderness to palpation. Question of mild swelling over other leg.) Neurologic/Psychiatric: Alert, Oriented x3 Skin: Normal Color, Warm/Dry Progress/Results/Core Measures Suspected Sepsis Recent Fever Within 48 Hours: No Infection Criteria Present: None New/Unexplained Altered Menta: No Sepsis Screen: No Definite Risk Sepsis Diagnosis: SIRS Temperature:97.5 Pulse: 70 Respiratory Rate: Laboratory Tests 07/22/17 22:35: White Blood Count 10.3 Blood Pressure 141 /73 Mean: 95 Laboratory Tests 07/22/17 22:35: Creatinine 0.83, Platelet Count 295, Total Bilirubin 0.2 Results/Orders Lab Results Laboratory Tests Test 07/22/17 22:30 07/22/17 22:35 Range/Units Urine Color YELLOW Urine Clarity SLIGHTLY CLOUDY Urine pH 5 5-9 Urine Specific [place] 1.025 H 1.016-1.022 Urine Protein NEGATIVE NEGATIVE Urine Glucose (UA) NEGATIVE NEGATIVE Urine Ketones NEGATIVE NEGATIVE Urine Nitrite NEGATIVE NEGATIVE Urine Bilirubin NEGATIVE NEGATIVE Urine Urobilinogen NORMAL NORMAL MG/DL Urine Leukocyte Esterase NEGATIVE NEGATIVE Urine RBC (Auto) NEGATIVE NEGATIVE Urine RBC NONE /HPF Urine WBC 0-2 /HPF Urine Squamous Epithelial Cells 5-10 /HPF Urine Crystals NONE /LPF Urine Bacteria MODERATE H /HPF Urine Casts NONE /LPF Urine Mucus NEGATIVE /LPF Urine Culture Indicated YES White Blood Count 10.3 4.3-11.0 10^3/uL Red Blood Count 4.08 L 4.35-5.85 10^6/uL Hemoglobin 11.9 11.5-16.0 G/DL Hematocrit 35 35-52 % Mean Corpuscular Volume 85 80-99 FL Mean Corpuscular Hemoglobin 29 25-34 PG Mean Corpuscular Hemoglobin Concent 34 32-36 G/DL Red Cell Distribution Width 13.5 10.0-14.5 % Platelet Count 295 130-400 10^3/uL Mean Platelet Volume 9.3 7.4-10.4 FL Neutrophils (%) (Auto) 58 42-75 % Lymphocytes (%) (Auto) 34 12-44 % Monocytes (%) (Auto) 5 0-12 % Eosinophils (%) (Auto) 3 0-10 % Basophils (%) (Auto) 0 0-10 % Neutrophils # (Auto) 6.0 1.8-7.8 X 10^3 Lymphocytes # (Auto) 3.5 1.0-4.0 X 10^3 Monocytes # (Auto) 0.5 0.0-1.0 X 10^3 Eosinophils # (Auto) 0.3 0.0-0.3 10^3/uL Basophils # (Auto) 0.0 0.0-0.1 10^3/uL D-Dimer 0.41 0.00-0.49 UG/ML Sodium Level 139 135-145 MMOL/L Potassium Level 3.6 3.6-5.0 MMOL/L Chloride Level 105 98-107 MMOL/L Carbon Dioxide Level 21 21-32 MMOL/L Anion Gap 13 5-14 MMOL/L Blood Urea Nitrogen 16 7-18 MG/DL Creatinine 0.83 0.60-1.30 MG/DL Estimat Glomerular Filtration Rate > 60 BUN/Creatinine Ratio 19 Glucose Level 84 70-105 MG/DL Calcium Level 9.5 8.5-10.1 MG/DL Total Bilirubin 0.2 0.1-1.0 MG/DL Aspartate Amino Transf (AST/SGOT) 24 5-34 U/L Alanine Aminotransferase (ALT/SGPT) 17 0-55 U/L Alkaline Phosphatase 54 40-136 U/L C-Reactive Protein High Sensitivity 0.94 H 0.00-0.50 MG/DL Total Protein 7.2 6.4-8.2 GM/DL Albumin 3.8 3.2-4.5 GM/DL Amylase Level 57 25-125 U/L Lipase 44 8-78 U/L My Orders Orders - YUKI MARCH MD Ua Culture If Indicated (07/22/17 22:09) Cbc With Automated Diff (07/22/17 23:19) Comprehensive Metabolic Panel (07/22/17 23:19) Hs C Reactive Protein (07/22/17 23:19) Fibrin Degradation Products (07/22/17 23:19) Saline Lock/Iv-Start (07/22/17 23:19) Ns Iv 1000 Ml (Sodium Chloride 0.9%) (07/22/17 23:19) Urine Culture (07/22/17 22:30) Amylase (07/23/17 00:27) Lipase (07/23/17 00:27) Bactrim Ds Po (07/23/17 00:53) Medications Given in ED Current Medications Medications Dose Ordered Sig/Neal Route Start Time Stop Time Status Last Admin Dose Admin Sodium Chloride 1,000 ml @ 0 mls/hr Q0M ONCE IV 07/22/17 23:19 07/22/17 23:22 DC 07/22/17 23:35 1,000 MLS/HR Vital Signs/I&O Vital Sign - Last 12Hours 07/22/17 22:10 Temp 97.5 Pulse 70 B/P (MAP) 141/73 (95) Pulse Ox 98 O2 Delivery Room Air Capillary Refill : Less Than 3 Seconds Blood Pressure Mean: 95 Progress Note : Progress Note Seen and evaluated. IV, labs, UA, normal saline 1 L bolus ordered. Monitor patient. 0054: Labs do not indicate any significant concerns for cellulitis or pancreatitis. Given patient's history and the slight increase in CRP as well as the finding of slight elevation and redness of the right lower extremity, we will initiate treatment for possible cellulitis. Bactrim DS one tab by mouth given. We will continue that for 7 days and have her follow-up with her doctor. Discharged home with return precautions. Patient verbalize understanding instructions and agreement with plan. Departure Impression Impression: Primary Impression: Cellulitis of right lower extremity Additional Impression: Abdominal pain, left upper quadrant Disposition: 01 HOME, SELF-CARE Condition: Improved Departure-Patient Inst. Decision time for Depature: 00:56 Referrals: CARMEN WHITTINGTON MD (PCP/Family) Primary Care Physician Patient Instructions: Acute Abdomen (Belly Pain), Adult (DC), Cellulitis (Skin Infection), Adult (DC) Add. Discharge Instructions: All discharge instructions reviewed with patient and/or family. Voiced understanding. Take medications as directed. Follow-up with Dr. Whittington within one week for recheck and further evaluation. Return for worse pain, fever, vomiting, weakness, breathing problems, increased swelling or redness the leg or other concerns as needed. Continue home medications as directed. You may take Tylenol 1000 mg every 8 hours as needed for pain. Scripts Sulfamethoxazole/Trimethoprim (Sulfamethoxazole-Tmp Ds Tablet) 1 Each Tablet 1 EACH PO BID, #14 TAB 0 Refills Prov: YUKI MARCH MD 07/23/17 Copy Copies To 1: CARMEN WHITTINGTON MD, TIMOTHY D MD Jul 22, 2017 23:27
[2017-07-23] LABS: BILIRUBIN,URINE NEGATIVE (NEGATIVE); CLARITY,URINE SLIGHTLY CLOUDY; COLOR,URINE YELLOW; GLUCOSE, URINE (UA) NEGATIVE (NEGATIVE); KETONES,URINE NEGATIVE (NEGATIVE); LEUKOCYTE ESTERASE ,URINE NEGATIVE (NEGATIVE); NITRITE,URINE NEGATIVE (NEGATIVE); PH,URINE 5 (5-9); PROTEIN,URINE NEGATIVE (NEGATIVE); UROBILINOGEN,URINE NORMAL (NORMAL)
[2017-07-23 00:02] LABS: BASOPHILS % (AUTO) 0 % (0-10); EOSINOPHILS # (AUTO) 0.3 10^3/uL (0.0-0.3); EOSINOPHILS % (AUTO) 3 % (0-10); HEMATOCRIT 35 % (35-52); HEMOGLOBIN 11.9 G/DL (11.5-16.0); LYMPHOCYTES # (AUTO) 3.5 X 10^3 (1.0-4.0); LYMPHOCYTES % (AUTO) 34 % (12-44); MEAN CORPUSCULAR HEMOGLOBIN 29 PG (25-34); MEAN CORPUSCULAR HGB CONC 34 G/DL (32-36); MEAN CORPUSCULAR VOLUME 85 FL (80-99); MEAN PLATELET VOLUME 9.3 FL (7.4-10.4); MONOCYTES # (AUTO) 0.5 X 10^3 (0.0-1.0); MONOCYTES % (AUTO) 5 % (0-12); NEUTROPHILS % (AUTO) 58 % (42-75); PLATELET COUNT 295 10^3/uL (130-400); RED BLOOD COUNT 4.08 10^6/uL (4.35-5.85); RED CELL DISTRIBUTION WIDTH 13.5 % (10.0-14.5); WHITE BLOOD COUNT 10.3 10^3/uL (4.3-11.0)
[2017-07-23 00:07] LABS: BACTERIA,URINE MODERATE /HPF; WBC,URINE 0-2 /HPF
[2017-07-23 00:20] LABS: ALANINE AMINOTRANSFERASE 17 U/L (0-55); ALBUMIN 3.8 GM/DL (3.2-4.5); ALKALINE PHOSPHATASE 54 U/L (40-136); BILIRUBIN,TOTAL 0.2 MG/DL (0.1-1.0); BUN/CREATININE RATIO 19; CALCIUM 9.5 MG/DL (8.5-10.1); CARBON DIOXIDE 21 MMOL/L (21-32); CHLORIDE 105 MMOL/L (98-107); CREATININE SERUM 0.83 MG/DL (0.60-1.30); GFR ESTIMATED > 60; GLUCOSE 84 MG/DL (70-105); POTASSIUM 3.6 MMOL/L (3.6-5.0); SODIUM 139 MMOL/L (135-145); TOTAL PROTEIN 7.2 GM/DL (6.4-8.2)
[2017-07-23 00:45] LABS: AMYLASE 57 U/L (25-125); LIPASE 44 U/L (8-78)
[2017-07-23] MEDS ORDERED: TRIM/SULFAMETH 160/800 (SEPTRA DS) TAB PO STA (00:53)
[2017-07-23] MEDS ORDERED: SULF-222 PO (00:57)
[2017-07-23 02:12] VITALS: BP 138/70
== END 2017-07-23 02:12 | disposition home or self-care (01) ==
LOC: EDUNIT# 21:09 → ER 21:10
DX: L03.115 Cellulitis of right lower limb (principal); R10.12 Left upper quadrant pain; J45.909 Unspecified asthma, uncomplicated; F41.9 Anxiety disorder, unspecified; F32.9 Major depressive disorder, single episode, unspecified; Z86.19 Personal history of other infectious and parasitic diseases; Z82.49 Family history of ischemic heart disease and other diseases of the circulatory system; Z86.010 Personal history of colon polyps; Z87.440 Personal history of urinary (tract) infections; Z90.89 Acquired absence of other organs; Z90.710 Acquired absence of both cervix and uterus; Z90.49 Acquired absence of other specified parts of digestive tract; Z87.891 Personal history of nicotine dependence; Z87.19 Personal history of other diseases of the digestive system; Z85.828 Personal history of other malignant neoplasm of skin; Z90.5 Acquired absence of kidney; Z88.5 Allergy status to narcotic agent; Z88.0 Allergy status to penicillin
CPT/HCPCS: 36415; 80053; 81000; 82150; 83690; 85025; 85379; 86141; 87088; 96360; 96361

== ENCOUNTER 2017-07-29 07:02 | Emergency (ER) | payer MEDICARE, MEDICAID ==
[~2017-07-29] VITALS: Ht 160 cm; Wt 108.9 kg
[~2017-07-29 07:02] MED LIST changes: +SULF-222 PO
[2017-07-29 08:22] LABS: BILIRUBIN,URINE NEGATIVE (NEGATIVE); CLARITY,URINE CLEAR; COLOR,URINE YELLOW; GLUCOSE, URINE (UA) NEGATIVE (NEGATIVE); KETONES,URINE NEGATIVE (NEGATIVE); LEUKOCYTE ESTERASE ,URINE NEGATIVE (NEGATIVE); NITRITE,URINE NEGATIVE (NEGATIVE); PH,URINE 6 (5-9); PROTEIN,URINE NEGATIVE (NEGATIVE); UROBILINOGEN,URINE NORMAL (NORMAL)
[2017-07-29 08:32] LABS: BACTERIA,URINE NEGATIVE /HPF; SQUAMOUS EPITHELIAL CELL,UR 25-50 /HPF; WBC,URINE RARE /HPF
--- NOTE | 2017-07-29 09:26 | ED Fall/Injury ---
General Chief Complaint: Trauma-Non Activation Stated Complaint: FALL ON ICE--BILATERAL ARM PAIN Nursing Triage Note: Pt reports she fell yesterday and landed on R wrist and L shoulder. pt c/o pain to both areas and also c/o pain to L side Source: patient Exam Limitations: no limitations History of Present Illness Date Seen by Provider: Jul 29, 2017 Time Seen by Provider: 09:00 Initial Comments Patient presents to ER by private conveyance with a chief complaint that sometime yesterday she had a fall on the ice landing on her left side. She was having pain in her left ribs as well as her left elbow is stiff swollen and painful. She's having some pain in her shoulder and limits her ability to abduct the shoulder secondary to pain. She is able to lift it with her other arm however. She has no previous injury to these extremities are ribs. She also having some pain in her right wrist where she landed on outstretched hand. Pain is on the thumb side. Patient did not strike her head and denies loss of consciousness. She is not having any nausea or weakness. Allergies and Home Medications Allergies Coded Allergies: meperidine (Verified Allergy, Unknown, 05/23/16) penicillin G (Verified Allergy, Unknown, 05/23/16) Home Medications Cholecalciferol (Vitamin D3) 2,000 Unit Tablet, 2,000 UNIT PO HS, (Reported) Estradiol 2 Mg Tablet, 3 MG PO HS, (Reported) TAKES 1 & 1/2 (2MG) TABLETS Ferrous Sulfate 325 Mg Tablet, 325 MG PO WEEK, (Reported) Fluoxetine HCl 40 Mg Capsule, 40 MG PO HS, (Reported) Oseltamivir Phosphate 75 Mg Capsule, 75 MG PO BID for 5 Days, #10 Ref 0 Prescribed by: YUKI MARCH on 06/29/172119 Ropinirole HCl 4 Mg Tablet, 4 MG PO HS, (Reported) Sulfamethoxazole/Trimethoprim 1 Each Tablet, 1 EACH PO BID, #14 Ref 0 Prescribed by: YKUI MARCH on 07/23/17 0057 Constitutional: see HPI, No chills, No diaphoresis Eyes: Denies Blindness, Denies Blurred Vision, Denies Drainage Ears, Nose, Mouth, Throat: denies ear pain, denies ear discharge Respiratory: No cough, No short of breath Cardiovascular: see HPI, chest pain (ribs tender) Gastrointestinal: No abdominal pain, No constipation, No diarrhea, No nausea Genitourinary: No discharge, No dysuria Past Jwqlyjc-Mslzgj-Drjmrt Hx Patient Social History Alcohol Use: Denies Use Recreational Drug Use: No 2nd Hand Smoke Exposure: No Recent Foreign Travel: No Contact w/Someone Who Travel: No Recent Infectious Disease Expo: No Recent Hopitalizations: No Immunizations Up To Date Tetanus Booster (TDap): Unknown Date of Pneumonia Vaccine: May 17, 2012 Date of Influenza Vaccine: Jul 03, 2012 Seasonal Allergies Seasonal Allergies: Yes (MILD) Surgeries History of Surgeries: Yes (R KNEE SCOPE X4 L X2, NASAL FX, EGD/COLONOSCOPY, COCCYX REMOVAL,) Surgeries: Abdominal, Adenoidectomy, Appendectomy, Gallbladder, 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, Nephrectomy, Orthopedic, Tonsillectomy Respiratory History of Respiratory Disorde: Yes (HASNT USED INHALER IN > 4 YRS) Respiratory Disorders: Asthma Currently Using CPAP: No Currently Using BIPAP: No Cardiovascular History of Cardiac Disorders: No Neurological History of Neurological Disord: Yes (RESTLESS LEG SYNDROME) Neurological Disorders: Headaches /Migraines 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 System Hx 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: Yes (HX ENDOMETRIOSIS ) Sexually Transmitted Disease: No HIV/AIDS: No 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, 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 SURGICAL CORSETIER History: 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 Genitourinary History of Genitourinary Disor: Yes (L KIDNEY REMOVED FOR TUMOR; FATTY LIVER/ ENLARGED LIVER) Genitourinary Disorders: UTI-Chronic Gastrointestinal History of Gastrointestinal Di: Yes (ENLARGED LIVER) Gastrointestinal Disorders: Pancreatitis, Polyps Musculoskeletal History of Musculoskeletal Dis: Yes (COCCYX-REPAIRED, MAY HAVE SIGNS OF ARTHRITIS) Musculoskeletal Disorders: Chronic Back Pain Endocrine History of Endocrine Disorders: No (CHRONIC PANCREATITIS) HEENT History of HEENT Disorders: No Loss of Vision: Denies Hearing Impairment: Denies Cancer History of Cancer: Yes Cancer: Kidney Type of Tx Receive: Surgical Intervention Psychosocial History of Psychiatric Problem: Yes Behavioral Health Disorders: Anxiety, Depression Integumentary History of Skin or Integumenta: No Skin/Integumentary Disorders: Herpes Blood Transfusions History of Blood Disorders: No Adverse Reaction to a Blood Tr: No Family Medical History Significant Family History: Cancer, Diabetes, Hypertension Family Medial History: Cardiovascular disease 19 FATHER Completed stroke 19 FATHER Diabetes mellitus 19 FATHER Hypercholesterolemia 19 FATHER 19 MOTHER Hypertension 19 FATHER 19 MOTHER Neoplasm 19 MOTHER Psychosocial problem 19 FATHER 19 MOTHER Physical Exam Vital Signs Vital Signs - First Documented 07/29/17 07:39 Temp 98.2 Pulse 83 Resp 18 B/P (MAP) 138/67 (90) Pulse Ox 98 O2 Delivery Room Air Capillary Refill : Less Than 3 Seconds General Appearance: WD/WN, mild distress HEENT: PERRL/EOMI, pharynx normal Neck: non-tender, supple, normal inspection Cardiovascular: normal peripheral pulses, regular rate, rhythm, no edema Respiratory: lungs clear, normal breath sounds, no respiratory distress, no accessory muscle use, other (left ribs are tender to palpation) Peripheral Pulses: 2+ Radial Pulses (R), 2+ Radial Pulses (L) Gastrointestinal: normal bowel sounds, non tender, soft Back: normal inspection, no vertebral tenderness Extremities: normal range of motion, normal capillary refill, other (mild tenderness and swelling on the left elbow and painful abduction of the should left shoulder. Full passive range of motion both upper extremities. No ecchymoses or skin tears.) Neurologic/Psychiatric: no motor/sensory deficits, alert, normal mood/affect, oriented x 3 Skin: normal color, warm/dry [place] Coma Score Best Eye Response: (4) Open Spontaneously Best Verbal Response: (5) Oriented Best Motor Response: (6) Obeys Commands Geremias Total: 15 Progress/Results/Core Measures Results/Orders Lab Results Laboratory Tests Test 07/29/17 08:17 Range/Units Urine Color YELLOW Urine Clarity CLEAR Urine pH 6 5-9 Urine Specific [place] 1.020 1.016-1.022 Urine Protein NEGATIVE NEGATIVE Urine Glucose (UA) NEGATIVE NEGATIVE Urine Ketones NEGATIVE NEGATIVE Urine Nitrite NEGATIVE NEGATIVE Urine Bilirubin NEGATIVE NEGATIVE Urine Urobilinogen NORMAL NORMAL MG/DL Urine Leukocyte Esterase NEGATIVE NEGATIVE Urine RBC (Auto) NEGATIVE NEGATIVE Urine RBC NONE /HPF Urine WBC RARE /HPF Urine Squamous Epithelial Cells 25-50 H /HPF Urine Crystals NONE /LPF Urine Bacteria NEGATIVE /HPF Urine Casts NONE /LPF Urine Mucus NEGATIVE /LPF Urine Culture Indicated NO My Orders Orders - MAKAYLA HAWKINS Ua Culture If Indicated (07/29/17 07:51) Ribs, Left 2-3 Views (07/29/17 09:20) Shoulder, Left, 3 Views (07/29/17 09:20) Elbow, Left, 3 Views (07/29/17 09:20) Wrist, Right, 3 Views Or More (07/29/17 09:20) Ketorolac Injection (Toradol Injection) (07/29/17 11:15) Medications Given in ED Current Medications Medications Dose Ordered Sig/Neal Route Start Time Stop Time Status Last Admin Dose Admin Ketorolac Tromethamine 30 mg ONCE ONCE IM 07/29/17 11:15 07/29/17 11:16 DC 07/29/17 11:21 30 MG Vital Signs/I&O Vital Sign - Last 12Hours 07/29/17 07/29/17 07:39 11:33 Temp 98.2 Pulse 83 77 Resp 18 18 B/P (MAP) 138/67 (90) Pulse Ox 98 98 O2 Delivery Room Air Blood Pressure Mean: 90 Diagnostic Imaging Diagonstic Imaging: Xray Plain Films/CT/US/NM/MRI: elbow Comments [facility]IA [facility]. [place], [place] NAME: JAYLYN DELGADO [facility] REC#: [id number] PT STATUS: REG ER : 1985 PHYSICIAN: MAKAYLA HAWKINS MD ADMIT DATE: 07/29/17/ER Draft Date of Exam:07/29/17 ELBOW, LEFT, 3 VIEWS INDICATION: Injury with pain FINDINGS: There is no pathologically displaced fat pad. Radiocapitellar and humeral capitellar alignment appeared normal. No fracture or articular incongruity. No cortical buckling. IMPRESSION: Negative left elbow radiographs Dictated on workstation # [id number] Dict: 07/29/17 0949 Trans: 07/29/17 1001 CINDY [id number] Interpreted by: ISABELLA RAHMAN Electronically signed by: Reviewed: Reviewed by Me Diagonstic Imaging: Xray Plain Films/CT/US/NM/MRI: chest (l rib) Comments [facility] [place] NAME: JAYLYN DELGADO [facility] REC#: [id number] PT STATUS: REG ER : 1985 PHYSICIAN: MAKAYLA HAWKINS MD ADMIT DATE: 07/29/17/ER Draft Date of Exam:07/29/17 RIBS, LEFT 2-3 VIEWS INDICATION: Fall on ice, pain. FINDINGS: The left lung showed no evidence for contusion, pneumothorax or hemothorax. No displaced rib fracture deformity and no free air beneath the diaphragms. No abnormal cortical lucencies. IMPRESSION: Negative left rib series. Dictated on workstation # [id number] Dict: 07/29/17939 Trans: 07/29/17 0947 [id number] Interpreted by: ISABELLA RAHMAN Electronically signed by: Reviewed: Reviewed by Me Diagonstic Imaging: Xray Plain Films/CT/US/NM/MRI: other (shoulder left) Comments [facility] [place], [place] NAME: JAYLYN DELGADO [facility] REC#: [id number] PT STATUS: REG ER : 1985 PHYSICIAN: MAKAYLA HAWKINS MD ADMIT DATE: 07/29/17/ER Draft Date of Exam:07/29/17 SHOULDER, LEFT, 3 VIEWS INDICATION: Fall, pain FINDINGS: There is no fracture, dislocation or acute appearing articular incongruity. IMPRESSION: No acute appearing abnormality Dictated on workstation # [id number] Dict: 07/29/17939 Trans: 07/29/17 0957 [facility] [id number] Interpreted by: ISABELLA RAHMAN Electronically signed by: Reviewed: Reviewed by Me Diagonstic Imaging: Xray Plain Films/CT/US/NM/MRI: other (right wrist) Comments NAME: SANDYJAYLYN [facility] REC#: [id number] PHYSICIAN: MAKAYLA HAWKINS MD CC: BHUPENDRA WONG MD; MAKAYLA HAWKINS Page 1 of 1 RADIOLOGY REPORT [facility]IA [place], [place] CC: BHUPENDRA WONG MD; MAKAYLA HAWKINS Page 1 of 1 RADIOLOGY REPORT NAME: SANDYJAYLYN [facility] REC#: [id number] PT STATUS: REG ER : 1985 PHYSICIAN: MAKAYLA HAWKINS MD ADMIT DATE: 07/29/17/ER Signed Date of Exam: 07/29/17 WRIST, RIGHT, 3 VIEWS OR MORE INDICATION: Right wrist pain AP, oblique, and lateral views of the right wrist are obtained. No fracture or acute bony abnormality is seen. Joint spaces are unremarkable. IMPRESSION: Negative right wrist. Dictated by: Dictated on workstation # [id number] Dict: 07/29/17 0948 Trans: 07/29/17 1026 Interpreted by: BHUPENDRA WONG MD Electronically signed by: BHUPENDRA WONG MD 07/29/17 1026 Reviewed: Reviewed by Me Departure Impression Impression: Primary Impression: Fall Qualified Codes: W19.XXXA - Unspecified fall, initial encounter Disposition: HOME, SELF-CARE Condition: Stable Departure-Patient Inst. Decision time for Depature: 11:25 Referrals: CARMEN GIBBS MD (PCP/Family) Primary Care Physician Patient Instructions: Wrist Sprain (DC) Add. Discharge Instructions: Apply ice for 20 minutes every 4 hours. Use 1000 g of Tylenol every 8 hours and 800 mg of ibuprofen every 8 hours as needed to control your pain. Keep moving your shoulder elbow and wrist to maintain mobility. If you feel the pain is gotten worse or is not improving some by 10 days you should follow up with your primary care physician to have your wrist reexamined. All discharge instructions reviewed with patient and/or family. Voiced understanding. Work/School Note: Work Release Form Date Seen in the Emergency Department: Jul 29, 2017 Return to Work: Jul 30, 2017 Restrictions: No Restrictions Copy Copies To 1: EMIL ROLON TITUS J Jul 29, 2017 09:26
--- NOTE | 2017-07-29 09:48 | Diagnostic Imaging Report ---
INDICATION: Fall on ice, pain. FINDINGS: The left lung showed no evidence for contusion, pneumothorax or hemothorax. No displaced rib fracture deformity and no free air beneath the diaphragms. No abnormal cortical lucencies. IMPRESSION: Negative left rib series. Dictated by: Dictated on workstation # [id number]
--- NOTE | 2017-07-29 09:51 | Diagnostic Imaging Report ---
INDICATION: Right wrist pain AP, oblique, and lateral views of the right wrist are obtained. No fracture or acute bony abnormality is seen. Joint spaces are unremarkable. IMPRESSION: Negative right wrist. Dictated by: Dictated on workstation # [id number]
--- NOTE | 2017-07-29 09:58 | Diagnostic Imaging Report ---
INDICATION: Fall, pain FINDINGS: There is no fracture, dislocation or acute appearing articular incongruity. IMPRESSION: No acute appearing abnormality Dictated by: Dictated on workstation # [id number]
--- NOTE | 2017-07-29 10:02 | Diagnostic Imaging Report ---
INDICATION: Injury with pain FINDINGS: There is no pathologically displaced fat pad. Radiocapitellar and humeral capitellar alignment appeared normal. No fracture or articular incongruity. No cortical buckling. IMPRESSION: Negative left elbow radiographs Dictated by: Dictated on workstation # [id number]
[2017-07-29] MEDS ORDERED: KETOROLAC 30 MG/ML VIAL IM ONE (11:15)
[2017-07-29 11:33] VITALS: BP 149/93
--- OUTSIDE RECORDS SUMMARY | 2017-08-01 11:15 | XMS REPORT | Encounter Summary ---
Author Author [facility] Organization [facility] Address Unknown Phone Unavailable Care Team Providers Care Energy Conservation Director Name Role Phone Michael Sutton MD Unavailable Unavailable Mary Whittington MD PCP Jessica Valera Unavailable Maggie Puente Unavailable Unavailable Mary Telles APRN Unavailable Bam Ritter MD Unavailable Radha Bo LPN Unavailable Unavailable Tyesha Sanchez MD Unavailable Encounter Details Date Type Department Care Team Description 06/18/2017 Hospital [facility] Tyesha Sanchez MD Other chronic Encounter [address] pancreatitis (HCC) [place] [address] [address] [place] [address] [phone] Social History Tobacco Use Types Packs/Day Years [...] 4,000 mg of acetaminophen in 24 hours. cyanocobalamin (VITAMIN Inject 1 mL into the [...] mg twice daily. Indications: tabletIndications: CONSTIPATION constipation cholecalciferol(+) Take 1 capsule by mouth 8 capsule 0 06/06/2017 (Vitamin D3) 50,000 units every 7 days for 8 doses. capsuleIndications: Indications: VITAMIN D VITAMIN D DEFICIENCY DEFICIENCY (HIGH DOSE (HIGH DOSE THERAPY) THERAPY) as of this encounter Plan of Treatment Date Type Specialty Care Team Description 05/06/2017 Procedure Pass Oncology 05/06/2017 Procedure Pass Oncology as of this encounter Results * SURGICAL PATHOLOGY (06/18/2017 2:27 PM) Component Value Ref Range PATHOLOGY REPORT [facility] [email or web address] Department of Pathology and Laboratory Medicine [address] [place] [address] Surgical Pathology Office: [phone] SURGICAL PATHOLOGY REPORT NAME: JAYLYN DELGADO SURG PATH #: [id number] MR #: [id number] SPECIMEN CLASS: SR BILLING #: [id number] ALT ID #: LOCATION: [facility] DATE OF PROCEDURE: 06/18/2017 AGE: 32 SEX: [...] is entirely submitted in cassette A1. (tn) 06/18/2017 Specimen Performing Laboratory [facility] RESULTS in this encounter Visit Diagnoses Not on filein this encounter Admitting Diagnoses Diagnosis Other chronic pancreatitis (HCC) Other chronic pancreatitis
--- OUTSIDE RECORDS SUMMARY | 2017-08-01 11:15 | XMS REPORT | Encounter Summary ---
Author Author [facility] Organization [facility] Address Unknown Phone Unavailable Care Team Providers Care Document Analyst Name Role Phone Michael Sutton MD Unavailable Unavailable Mary Whittington MD PCP Jessica Valera Unavailable Maggie Puente Unavailable Unavailable Mary Telles APRN Unavailable Bam Ritter MD Unavailable Radha Bo PELTS SKINNER Unavailable Unavailable Jose Sanchez MD Unavailable Encounter Details Date Type Department Care Team Description 05/06/2017 Procedure Pass [facility] Exam [address] [place] [address] Social History Tobacco Use Types Packs/Day Years [...]
--- OUTSIDE RECORDS SUMMARY | 2017-08-01 11:15 | XMS REPORT | Encounter Summary ---
Author Author [facility] Organization [facility] Address Unknown Phone Unavailable Care Team Providers Care Horse Stud Worker Name Role Phone Michael Sutton MD Unavailable Unavailable Mary Whittington MD PCP Jessica Valera Unavailable Maggie Puente Unavailable Unavailable Mary Telles APRN Unavailable Bam Ritter MD Unavailable Radha Bo LPN Unavailable Unavailable Jose Sanchez MD Unavailable Reason for Visit * Reason Comments General Question Records Request Encounter Details Date Type Department Care Team Description 07/09/2017 Telephone [facility] Randy Nunez MD General Question; Records Physicians - Internal [address] [facility] Request Medicine [address] [place] [address] [address] [facility] [phone] [place] [address] Social History Tobacco Use Types [...] Telephone Encounter - Arleen Leone RN - 07/11/2017 11:17 AM MUSICAL INSTRUMENT MECHANIC Phoned patient. Confirms did get colonoscopy locally and was informed was normal. Request for records sent to [facility] to review with Dr. Nunez. Difficult conversation to track today. States that local ED Doctor feels she should have fluids, that she sweats and makes her dehydrated as urine was "orange." Patient assures she is following with her kidney Doctor regarding dehydration concern and PCP. Patient has decreased appetite and with little food, patient feels full and bloated is patient's concern to our office today. * Telephone Encounter - Alexandria Domingo RN - 07/09/2017 3:05 PM MUSICAL INSTRUMENT MECHANIC Patient called and left a voice mail stating that she has a few questions and would like a call back. Failed attempt to reach the patient. Nurse left a non-detailed message, leaving a call back number. in this encounter Plan of Treatment Date Type Specialty Care Team Description 05/06/2017 Procedure Pass Oncology 05/06/2017 Procedure Pass Oncology as of this encounter Visit Diagnoses Not on filein this encounter
--- OUTSIDE RECORDS SUMMARY | 2017-08-01 11:15 | XMS REPORT | Encounter Summary ---
Author Author [facility] Organization [facility] Address Unknown Phone Unavailable Care Team Providers Care Retail Loan Officer Name Role Phone Michael Sutton MD Unavailable Unavailable Mary Whittington MD PCP Jessica Valera Unavailable Maggie Puente Unavailable Unavailable Mary Telles APRN Unavailable Bam Ritter MD Unavailable Radha Bo LPN Unavailable Unavailable Jose Sanchez MD Unavailable Reason for Visit * Reason Comments Pain Encounter Details Date Type Department Care Team Description 06/20/2017 Telephone [facility] Abel Poe MD [facility] Exam [address] [facility] [address] [place] [address] [place] [address] [phone] Social History Tobacco Use Types Packs/Day Years [...] Miscellaneous Notes * Telephone Encounter - Maddi Cannon, RN - 06/20/2017 9:47 AM HEAD CONCIERGE Pt called stating she has been sick since having he GI scope and now is experiencing pain in abdomen on right side which is opposite side of renal surgery. Pt notes her urine is dark but denies fever. Pt admits to increase stress in her life and has to go to court today for which Dr Gooden is speaking with contact center team lead. Instructed pt she needs to either go [...]
--- OUTSIDE RECORDS SUMMARY | 2017-08-01 11:15 | XMS REPORT | Encounter Summary ---
Author Author [facility] Organization [facility] Address Unknown Phone Unavailable Care Team Providers Care Senior Field Engineer Name Role Phone Michael Sutton MD Unavailable Unavailable Mary Whittington MD PCP Jessica Valera Unavailable Maggie Puente Unavailable Unavailable Mary Telles APRN Unavailable Bam Ritter MD Unavailable Radha Bo LPN Unavailable Unavailable Jose Sanchez MD Unavailable Reason for Visit * Reason Comments Results Test Encounter Details Date Type Department Care Team Description 06/06/2017 Telephone [facility] Randy Nunez MD Results ; Test Physicians - Internal [address] [facility] Medicine [address] [place] [address] [place] [address] Social History Tobacco Use Types [...] Arleen Leone RN - 06/06/2017 8:47 AM PREVENTION RN Patient aware of lab results along with Dr. Nunez's recommendations. Results sent to Dr. Whittington's office and patient will get with their office regarding administration of her new Vitamin B12 monthly injections. All new prescriptions have been e-scribed to patient's pharmacy. Patient aware may have to purchase Iron over the counter. * Telephone Encounter - Arleen Leone RN - 06/06/2017 8:34 AM PREVENTION RN ----- Message from Randy Nunez MD sent at 06/05/2017 10:11 AM PREVENTION RN ----- Laboratory evaluation is consistent with iron [...]
--- OUTSIDE RECORDS SUMMARY | 2017-08-01 11:15 | XMS REPORT | Encounter Summary ---
Author Author [facility] Organization [facility] Address Unknown Phone Unavailable Care Team Providers Care Form Layer Name Role Phone Michael Sutton MD Unavailable Unavailable Mary Whittington MD PCP Jessica Valera Unavailable Maggie Puente Unavailable Unavailable Mary Telles APRN Unavailable Bam Ritter MD Unavailable Radha Bo LPN Unavailable Unavailable Jose Sanchez MD Unavailable Reason for Visit * Reason Comments Follow-up Phone Call Encounter Details Date Type Department Care Team Description 06/19/2017 Telephone [facility] Randy Nunez MD Follow- up Phone Call Physicians - Internal [facility] Medicine [address] [place] [address] [place] [address] Social History Tobacco Use Types [...] Arleen Leone RN - 06/19/2017 2:51 PM ERP PROGRAMMER Message back to patient regarding Dr. Nunez's response. * Telephone Encounter - Randy Nunez MD - 06/19/2017 1:00 PM ERP PROGRAMMER Yes can be done locally, please have copy sent to us. Thanks * Telephone Encounter - Arleen Leone RN - 06/19/2017 9:26 AM ERP PROGRAMMER Patient calling today to inform did have [...]
--- OUTSIDE RECORDS SUMMARY | 2017-08-01 11:15 | XMS REPORT | Clinical Summary ---
Author Author [facility] Organization [facility] Address Unknown Phone Unavailable Care Team Providers Care Cumulative Effects Analyst Name Role Phone Michael Sutton MD Unavailable Unavailable Mary Whittington MD PCP Jessica Valera Unavailable Maggie Puente Unavailable Unavailable Mary Telles APRN Unavailable Bam Ritter MD Unavailable Radha Bo LPN Unavailable Unavailable Tyesha Sanchez MD Unavailable Source Comments Some departments are not documenting in the electronic medical record. If you do not see the information that you expected, contact Release of Information in the Health Information Management department at [phone] for further assistance in locating additional records.[facility] Allergies Active Allergy Reactions Severity Noted Date Comments Meperidine (Pf) ITCHING Low 09/20/2011 Fentanyl ITCHING Low 09/20/2011 Penicillins UNKNOWN 09/20/2011 Current Medications Prescription [...] of orange tabletIndications: juice Medication monitoring encounter cyanocobalamin (VITAMIN Inject 1 mL into the 1 mL 3 06/06/20 Active B-12) 1,000 mcg/mL muscle every 30 days. 17 injectionIndications: Indications: VITAMIN B12 VITAMIN B12 DEFICIENCY DEFICIENCY cholecalciferol(+) Take 1 capsule by mouth 8 capsule 0 06/06/2003/06 (Vitamin D3) 50,000 units every 7 days for 8 doses. 17 18 capsuleIndications: Indications: VITAMIN D VITAMIN D DEFICIENCY DEFICIENCY (HIGH DOSE (HIGH DOSE THERAPY) THERAPY) Active Problems Problem Noted Date Left renal mass 04/10/2017 Renal mass 03/21/2017 Overview: Added automatically from request for surgery [id number] 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 06/24/2013 Overview: S/P FREDI LINO 11/27 Depression 06/24/2013 S/P cholecystectomy 06/24/2013 Overview: 2007 S/P appendectomy 06/24/2013 Overview: November 2012 Pancreatitis 10/23/2011 Encounters Date Type Specialty Care Team Description 07/09/2017 Telephone Gastroenterology Randy Nunez MD General Question; Records Request 06/20/2017 Telephone Oncology Abel Poe MD Pain [...] vomiting not specified, unspecified vomiting type (Primary Dx); Microcytic anemia; Fatigue, unspecified type; Weight gain; Chronic pancreatitis, unspecified pancreatitis type (HCC); History of colon polyps; Low vitamin D level; Medication monitoring encounter 06/03/2017 Documentation Oncology Abel Poe MD 05/21/2017 Telephone Oncology Abel Poe MD Abdominal pain 05/07/2017 Refill Gastroenterology Jessica Valera ARNP 05/06/2017 Office Visit Oncology Abel Poe MD Left renal mass ( Primary Dx) from Last 3 Months Family History Medical [...] Taken Blood Pressure 129/78 06/03/2017 10:10 AM COKE OVEN PATCHER Pulse 66 06/03/2017 10:10 AM COKE OVEN PATCHER Temperature 36.6 C (97.8 F) 06/03/2017 10:10 AM COKE OVEN PATCHER Respiratory Rate 14 06/03/2017 10:10 AM COKE OVEN PATCHER Oxygen Saturation 97% 05/06/2017 8:47 AM COKE OVEN PATCHER Inhaled Oxygen - - Concentration Weight 117.2 kg (258 lb 4.8 oz) 06/03/2017 10:10 AM COKE OVEN PATCHER Height 160 cm (5' 3") 06/03/2017 10:10 AM COKE OVEN PATCHER Body Mass Index 45.76 06/03/2017 10:10 AM COKE OVEN PATCHER Plan of Treatment Date Type Specialty Care Team Description 05/06/2017 Procedure Pass Oncology 05/06/2017 Procedure Pass Oncology Health Maintenance Due Date Last Done Comments PHYSICAL (COMPREHENSIVE) 1991 EXAM PERTUSSIS VACCINE 1995 TETANUS VACCINE 2001 CERVICAL CANCER SCREENING 2014 INFLUENZA VACCINE 01/15/2017 Results * SURGICAL PATHOLOGY (06/18/2017 2:27 PM) Component Value Ref Range PATHOLOGY REPORT [facility] [email or web address] Department of Pathology and Laboratory Medicine [address] [place] [address] Surgical Pathology Office: [phone] SURGICAL PATHOLOGY REPORT NAME: JAYLYN DELGADO SURG PATH #: [id number] MR #: [id number] SPECIMEN CLASS: SR BILLING #: [id number] ALT ID #: LOCATION: [facility] DATE OF PROCEDURE: 06/18/2017 AGE: [...] NG/ML Specimen Performing Laboratory Blood MAIN LAB [address] [place] [address] * TSH WITH FREE T4 REFLEX (06/03/2017 11:28 AM) Component Value Ref Range TSH 1.708 0.35 - 5.00 MCU/ML Specimen Performing Laboratory Blood [facility] [address] [place] [address] * 25-OH VITAMIN D (D2 + D3) (06/03/2017 11:28 AM) Component Value Ref Range Vitamin D(25-OH)Total 19.3 (L) 30 - 80 NG/ML Specimen Performing Laboratory Blood MAIN LAB [address] [place], [place] [id number] * LIPASE (06/03/2017 11:28 AM) Component Value Ref Range Lipase 26 11 - 82 U/L Specimen Performing Laboratory Blood MAIN LAB [address] [place] [address] * VITAMIN B12 (06/03/2017 11:28 AM) Component Value Ref Range Vitamin B12 185 180 - 914 PG/ML Specimen Performing Laboratory Blood MAIN LAB [address] [place], [place] [id number] * CORTISOL-AM (06/03/2017 11:28 AM) Component Value Ref Range Cortisol-AM 10.2 6.7 - 22.6 MCG/DL Specimen Performing Laboratory Blood MAIN LAB [address] [place] [address] * AMYLASE (06/03/2017 11:28 AM) Component Value Ref Range Amylase 39 24 - 100 U/L Specimen Performing Laboratory Blood [facility] [address] [place] [address] * COMPREHENSIVE METABOLIC PANEL (06/03/2017 11:28 AM) [...] Performing Laboratory Blood [facility] [address] [place] [address] * BASIC METABOLIC PANEL (05/06/2017 8:31 AM) [...] Clinical Pharmacist for questions. Specimen Performing Laboratory [facility] [address] [place] [address] from Last 3 Months
--- OUTSIDE RECORDS SUMMARY | 2017-08-01 11:15 | XMS REPORT | Encounter Summary ---
Author Author [facility] Organization [facility] Address Unknown Phone Unavailable Care Team Providers Care Coremaker Machine Name Role Phone Michael Sutton MD Unavailable [...] EUS/Colonoscopy) Medicine [address]ND FLOOR POD B [address] [facility] [place] [address] Social History Tobacco Use Types [...] - Maggie Puente - 06/07/2017 8:32 AM CUSTOMER EXPERIENCE CONSULTANT Scheduled Upper EUS/Colonoscopy at [facility] with Dr Sanchez on 06/18/17. Verbal instructions given over the phone, packet e-mailed to [email or web address]. Advised patient to contact the prescribing provider for any blood thinning medication and/or aspirin recommendations 1 week prior to having procedure. Patient verbalized understanding. * Telephone Encounter - Maggie Puente - 06/07/2017 8:28 AM CUSTOMER EXPERIENCE CONSULTANT Left generic message for patient to return call to schedule Upper EUS/ Colonoscopy. * Telephone Encounter - Maggie Puente - 06/06/2017 2:36 PM CUSTOMER EXPERIENCE CONSULTANT Left generic message for patient to return call to schedule Upper EUS/ Colonoscopy. in this encounter Plan of Treatment Date Type Specialty Care Team Description 05/06/2017 Procedure Pass Oncology 05/06/2017 Procedure Pass Oncology as of this encounter Visit Diagnoses Not on filein this encounter
--- OUTSIDE RECORDS SUMMARY | 2017-08-01 11:15 | XMS REPORT | Encounter Summary ---
Author Author [facility] Organization [facility] Address Unknown Phone Unavailable Care Team Providers Care Software Developer Name Role Phone Michael Sutton MD Unavailable Unavailable Mary Whittington MD PCP Jessica Valera Unavailable Maggie Puente Unavailable Unavailable Mary Telles APRN Unavailable Bam Ritter MD Unavailable Radha Bo LPN Unavailable Unavailable Jose Sanchez MD Unavailable Encounter Details Date Type Department Care Team Description 06/19/2017 Orders Only [facility] Jose Sanchez MD Physicians - Internal [address] [facility] Medicine [address] [place] [address] [address] [facility] MED [phone] [address] Social History Tobacco Use Types [...]
--- OUTSIDE RECORDS SUMMARY | 2017-08-01 11:15 | XMS REPORT | Encounter Summary ---
Author Author [facility] Organization [facility] Address Unknown Phone Unavailable Care Team Providers Care Head Waiter Name Role Phone Michael Sutton MD Unavailable Unavailable Mary Whittington MD PCP Jessica Valera Unavailable Maggie Puente Unavailable Unavailable Mary Telles APRN Unavailable Bam Ritter MD Unavailable Radha Bo LPN Unavailable Unavailable Jose Sanchez MD Unavailable Encounter Details Date Type Department Care Team Description 06/03/2017 Documentation [facility] Abel Poe MD [facility] Exam [address] [place] [address] [place] [address] [phone] Social History Tobacco Use Types Packs/Day Years [...] this encounter Progress Notes * Maddi Cannon, RN - 06/03/2017 3:37 PM DESIGN PRINTING MACHINE SETTER Pt called stating she was seen at [facility] ER this weekend for kidney infection and [...]
--- OUTSIDE RECORDS SUMMARY | 2017-08-01 11:15 | XMS REPORT | Encounter Summary ---
Author Author [facility] Organization [facility] Address Unknown Phone Unavailable Care Team Providers Care Caterpillar Operator Name Role Phone Michael Sutton MD Unavailable Unavailable Mary Whittington MD PCP Jessica Valera Unavailable Maggie Puente Unavailable Unavailable Mary Telles APRN Unavailable Bam Ritter MD Unavailable Radha Bo GAS OPERATION MANAGER Unavailable Unavailable Jose Sanchez MD Unavailable Encounter Details Date Type Department Care Team Description 05/06/2017 Procedure Pass [facility] Exam [address] [place] [address] Social History Tobacco Use Types Packs/Day Years [...]
--- OUTSIDE RECORDS SUMMARY | 2017-08-01 11:16 | XMS REPORT | Encounter Summary ---
Author Author [facility] Organization [facility] Address Unknown Phone Unavailable Care Team Providers Care Support Services Specialist Name Role Phone Michael Sutton MD Unavailable Unavailable Mary Whittnigton MD PCP Jessica Valera Unavailable Maggie Puente Unavailable Unavailable Mary Telles APRN Unavailable Bam Ritter MD Unavailable Radha Bo LPN Unavailable Unavailable Jose Sanchez MD Unavailable Encounter Details Date Type Department Care Team Description 06/03/2017 [facility] Randy Nunez MD Encounter [address] [place] [address] [address] [place] [address] [phone] Social History Tobacco Use Types Packs/Day Years [...] Specimen Performing Laboratory Blood MAIN LAB [address] [place] [address] * LIPASE (06/03/2017 11:28 AM) Component Value Ref Range Lipase 26 11 - 82 U/L Specimen Performing Laboratory Blood MAIN LAB [address] [place] [address] * AMYLASE (06/03/2017 11:28 AM) Component Value Ref Range Amylase 39 24 - 100 U/L Specimen Performing Laboratory Blood MAIN LAB [address] [place] [address] * IRON + BINDING CAPACITY + %SAT+ FERRITIN (06/03/2017 11:28 AM) Component Value Ref Range Iron 86 50 - 160 MCG/DL Iron Binding-TIBC 548 (H) 270 - 380 MCG/DL % Saturation 16 (L) 28 - 42 % Ferritin 60 10 - 200 NG/ML Specimen Performing Laboratory Blood MAIN LAB [address] [place] [address] * VITAMIN B12 (06/03/2017 11:28 AM) Component Value Ref Range Vitamin B12 185 180 - 914 PG/ML Specimen Performing Laboratory Blood MAIN LAB [address] [place] [address] * TSH WITH FREE T4 REFLEX (06/03/2017 11:28 AM) Component Value Ref Range TSH 1.708 0.35 - 5.00 MCU/ML Specimen Performing Laboratory Blood MAIN LAB [address] [place] [address] * CORTISOL-AM (06/03/2017 11:28 AM) Component Value Ref Range Cortisol-AM 10.2 6.7 - 22.6 MCG/DL Specimen Performing Laboratory Blood MAIN LAB [address] [place] [address] * COMPREHENSIVE METABOLIC PANEL (06/03/2017 11:28 AM) [...] Performing Laboratory Blood [facility] MAIN [facility] [address] [place] [address] in this encounter Visit Diagnoses Diagnosis Nausea and vomiting, intractability of vomiting not specified, unspecified vomiting type Fatigue, unspecified type Weight gain Abnormal weight gain Microcytic anemia Iron deficiency anemia, unspecified Chronic pancreatitis, unspecified pancreatitis type (HCC) Low vitamin D level Medication monitoring encounter Encounter for therapeutic drug monitoring
--- OUTSIDE RECORDS SUMMARY | 2017-08-01 11:16 | XMS REPORT | Encounter Summary ---
Author Author [facility] Organization [facility] Address Unknown Phone Unavailable Care Team Providers Care Caramel Cutter Machine Name Role Phone Michael Sutton MD Unavailable Unavailable Mary Whittington MD PCP Jessica Valera Unavailable Maggie Puente Unavailable Unavailable Mary Telles STEEL UNLOADER Unavailable Bam Ritter MD Unavailable Radha Bo BONSAI TENDER Unavailable Unavailable Jose Sanchez MD Unavailable Reason for Referral * Consult, Test & Treat (Routine) Status Reason Specialty Diagnoses / Referred By Referred To Procedures Contact Contact Closed Specialty Gastroenterology Diagnoses Laura Nunez Mojtaba, Services Dea Padilla MD MD Required pancreatitis, [address] [place] [address] pancreatitis [place] [address] [place] type (HCC) [place] [address] History of colon [address] Phone: polyps [phone] Scheduling Instructions Prep instructions given to patient during clinic. Reason for Visit * Reason Comments Pancreatitis Nausea Vomiting Polydipsia patient feels thirsty all the time Encounter Details Date Type Department Care Team Description 06/03/2017 Office Visit [facility] Randy Nunez MD Nausea and vomiting, Physicians - Internal [address] intractability of Medicine [place] [address] vomiting not specified, [address] [place] [address] [place] [address] (Primary Dx); [phone] Microcytic anemia; Fatigue, unspecified type; Weight gain; Chronic pancreatitis, unspecified pancreatitis type (HCC); History of colon polyps; Low vitamin D level; Medication monitoring encounter Social History Tobacco Use Types Packs/Day Years Used Date Never Smoker Smokeless Tobacco: Never Used Alcohol Use Drinks/Week oz/Week Comments No Sex Assigned at Date Recorded Not on file as of this encounter Last Filed Vital Signs Vital Sign Reading Time Taken Blood Pressure 129/78 06/03/2017 10:10 AM INDEPENDENT SALES REPRESENTATIVE Pulse 66 06/03/2017 10:10 AM INDEPENDENT SALES REPRESENTATIVE Temperature 36.6 C (97.8 F) 06/03/2017 10:10 AM INDEPENDENT SALES REPRESENTATIVE Respiratory Rate 14 06/03/2017 10:10 AM INDEPENDENT SALES REPRESENTATIVE Oxygen Saturation - - Inhaled Oxygen - - Concentration Weight 117.2 kg (258 lb 4.8 oz) 06/03/2017 10:10 AM INDEPENDENT SALES REPRESENTATIVE Height 160 cm (5' 3") 06/03/2017 10:10 AM INDEPENDENT SALES REPRESENTATIVE Body Mass Index 45.76 06/03/2017 10:10 AM INDEPENDENT SALES REPRESENTATIVE in this encounter Functional Status Functional Status [...] Randy Nunez MD - 06/03/2017 10:30 AM INDEPENDENT SALES REPRESENTATIVE You need to see a local Corporate Consultant to review a gastroparetic diet Blood work today Schedule colonoscopy and EUS with Dr. Sanchez. Please follow your prep instructions. You will be contacted by Maggie to schedule or you may phone [phone], option 2 to schedule. Would like to see you back in approximate 3 months with Jessica Valera NP. in this encounter Progress Notes * Randy Nunez MD - 06/03/2017 10:30 AM INDEPENDENT SALES REPRESENTATIVE Formatting of this note may be different [...] NG/ML Specimen Performing Laboratory Blood MAIN LAB [address] [place] [address] * LIPASE (06/03/2017 11:28 AM) Component Value Ref Range Lipase 26 11 - 82 U/L Specimen Performing Laboratory Blood MAIN LAB [address] [place] [address] * AMYLASE (06/03/2017 11:28 AM) Component Value Ref Range Amylase 39 24 - 100 U/L Specimen Performing Laboratory Blood MAIN LAB [address] [place] [address] * IRON + BINDING CAPACITY + %SAT+ FERRITIN (06/03/2017 11:28 AM) Component Value Ref Range Iron 86 50 - 160 MCG/DL Iron Binding-TIBC 548 (H) 270 - 380 MCG/DL % Saturation 16 (L) 28 - 42 % Ferritin 60 10 - 200 NG/ML Specimen Performing Laboratory Blood MAIN LAB [address] [place], [place] [id number] * VITAMIN B12 (06/03/2017 11:28 AM) Component Value Ref Range Vitamin B12 185 180 - 914 PG/ML Specimen Performing Laboratory Blood MAIN LAB [address] [place], [place] [id number] * TSH WITH FREE T4 REFLEX (06/03/2017 11:28 AM) Component Value Ref Range TSH 1.708 0.35 - 5.00 MCU/ML Specimen Performing Laboratory Blood MAIN LAB [address] [place], [place] [address] * CORTISOL-AM (06/03/2017 11:28 AM) Component Value Ref Range Cortisol-AM 10.2 6.7 - 22.6 MCG/DL Specimen Performing Laboratory Blood MAIN LAB [address] [place] [address] [place] [address] * COMPREHENSIVE METABOLIC PANEL (06/03/2017 11:28 AM) [...] Performing Laboratory Blood [facility] MAIN [facility] [address] [place] [address] in this encounter Visit Diagnoses Diagnosis Nausea [...]
--- OUTSIDE RECORDS SUMMARY | 2017-08-01 11:16 | XMS REPORT | Encounter Summary ---
Author Author [facility] Organization [facility] Address Unknown Phone Unavailable Care Team Providers Care Coring Machine Operator Name Role Phone Michael Sutton MD Unavailable Unavailable Mary Whittington MD PCP Jessica Valera Unavailable Maggie Puente Unavailable Unavailable Mary Telles APRN Unavailable Bam Ritter MD Unavailable Radha Bo LPN Unavailable Unavailable Jose Sanchez MD Unavailable Reason for Visit * Reason Comments Abdominal pain Encounter Details Date Type Department Care Team Description 05/21/2017 Telephone [facility] Abel Poe MD Abdominal pain [facility] Exam [address] [facility] [address] [place] [address] [place] [address] [phone] Social History Tobacco Use Types Packs/Day Years [...] Jenn Bhatt RN - 05/21/2017 3:20 PM ADMINISTRATIVE FELLOW Pt called to report that she had [...]
--- OUTSIDE RECORDS SUMMARY | 2017-08-01 11:16 | XMS REPORT | Encounter Summary ---
Author Author [facility] Organization [facility] Address Unknown Phone Unavailable Care Team Providers Care Manager Java Name Role Phone Michael Sutton MD Unavailable Unavailable Mary Whittington MD PCP Jessica Valera Unavailable Maggie Puente Unavailable Unavailable Mary Telles FLORIST SUPPLIES SALESPERSON Unavailable Bam Ritter MD Unavailable Radha Bo OCCUPATIONAL THERAPIST ASSISTANT Unavailable Unavailable Jose Sanchez MD Unavailable Reason for Referral * Radiology Services Status Reason Specialty Diagnoses / Referred By Referred To Procedures Contact Contact New Request Radiology Diagnoses Abel Poe MD Left renal mass [address] [place] [place] [address] [place], [place] [address] * Radiology Services Status Reason Specialty Diagnoses / Referred By Referred To Procedures Contact Contact New Request Radiology Diagnoses Abel Poe MD Left renal mass [address] [place] [address] [place] [address] Reason for Visit * Reason Comments Heme/Onc Care Encounter Details Date Type Department Care Team Description 05/06/2017 Office Visit [facility] Abel Poe MD Left renal mass (Primary [facility] Exam [address] Dx) [address] [place] [address] [place] [address] [place] [address] [phone] Social History Tobacco Use Types Packs/Day Years Used Date Never Smoker Smokeless Tobacco: Never Used Alcohol Use Drinks/Week oz/Week Comments Yes Does not consume alcohol in excess. Sex Assigned at Date Recorded Not on file as of this encounter Last Filed Vital Signs Vital Sign Reading Time Taken Blood Pressure 123/61 05/06/2017 8:47 AM MAGNETIC GRINDER OPERATOR Pulse 73 05/06/2017 8:47 AM MAGNETIC GRINDER OPERATOR Temperature 36.7 C (98 F) 05/06/2017 8:47 AM MAGNETIC GRINDER OPERATOR Respiratory Rate 20 05/06/2017 8:47 AM MAGNETIC GRINDER OPERATOR Oxygen Saturation 97% 05/06/2017 8:47 AM MAGNETIC GRINDER OPERATOR Inhaled Oxygen - - Concentration Weight 114.4 kg (252 lb 3.2 oz) 05/06/2017 8:47 AM MAGNETIC GRINDER OPERATOR Height 156.8 cm (5' 1.75") 05/06/2017 8:47 AM MAGNETIC GRINDER OPERATOR Body Mass Index 46.5 05/06/2017 8:47 AM MAGNETIC GRINDER OPERATOR in this encounter Functional Status Functional Status Response Date of Assessment Does the patient have a hearing impairment: No 04/10/2017 as of this encounter Progress Notes * Jenn Bhatt RN - 05/06/2017 9:45 AM MAGNETIC GRINDER OPERATOR Bedside bladder scan performed. [address] Poe. * Abel Poe MD - 05/06/2017 9:45 AM MAGNETIC GRINDER OPERATOR Formatting of this note may be different [...] Clinical Pharmacist for questions. Specimen Performing Laboratory [facility] [place] [facility] [address] [place] [address] in this encounter Visit Diagnoses Diagnosis Left renal mass - Primary Unspecified disorder of kidney and ureter
--- OUTSIDE RECORDS SUMMARY | 2017-08-01 11:16 | XMS REPORT | Encounter Summary ---
Author Author [facility] Organization [facility] Address Unknown Phone Unavailable Care Team Providers Care Human Resources Manager Manufacturing Name Role Phone Michael Sutton MD Unavailable Unavailable Mary Whittington MD PCP Jessica Valera Unavailable Maggie Puente Unavailable Unavailable Mary Telles APRN Unavailable Bam Ritter MD Unavailable Radha Bo LPN Unavailable Unavailable Jose Sanchez MD Unavailable Reason for Visit * Reason Comments Medication Refill Encounter Details Date Type Department Care Team Description 05/07/2017 Refill [facility] Jessica Valera ARNP Physicians - Internal [address] [facility] Medicine [address] [facility] [place] [address] OFFICE BLDG [phone] [address] [place] [address] Social History Tobacco Use Types [...]
--- OUTSIDE RECORDS SUMMARY | 2017-08-01 11:16 | XMS REPORT | Encounter Summary ---
Author Author [facility] Organization [facility] Address Unknown Phone Unavailable Care Team Providers Care Product Support Engineer Name Role Phone Michael Sutton MD Unavailable Unavailable Mary Whittington MD PCP Jessica Valera Unavailable Maggie Puente Unavailable Unavailable Mary Telles FLAT SORTING MACHINE CLERK Unavailable Bam Ritter MD Unavailable Radha Bo SENIOR RESTAURANT MANAGER Unavailable Unavailable Jose Sanchez MD Unavailable Reason for Visit * Reason Comments Abdominal pain Encounter Details Date Type Department Care Team Description 04/29/2017 Telephone [facility] Abel Poe MD Abdominal pain [facility] Exam [address] [facility] [address] [place] [address] [place] [address] [phone] Social History Tobacco Use Types Packs/Day Years [...] Maddi Cannon RN - 04/29/2017 3:09 PM PETROLEUM REFINING FIRER Pt paged nurse with c/o sharp pain [...]
--- OUTSIDE RECORDS SUMMARY | 2017-08-01 11:57 | XMS REPORT | Continuity of Care Document ---
Author Author [facility] Address Unknown Phone Unavailable Allergies Active Description Code Type Severity Reaction Onset Reported/Identified Relationship to Patient Clinical Status Yes Demerol Drug Allergy N/A N/A 08/04/2008 Yes fentanyl Drug Allergy N/A N/A 08/04/2008 Yes Penicillins Drug Allergy N/A N/A 08/04/2008 Yes Demerol Drug Allergy 08/04/2008 Yes fentanyl Drug Allergy 08/04/2008 Yes Penicillins Drug Allergy 08/04/2008 Yes fentanyl [id number] Drug Allergy Unknown N/A 05/23/2016 Yes meperidine [id number] Drug Allergy Unknown N/A 05/23/2016 Yes penicillin G [id number] Drug Allergy Unknown N/A 05/23/2016 Medications There [...] DO, EMIL K 784.0 Headache 08/04/2008 KIM 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, OSMAN T 577.9 PANCREATITIS 08/04/2008 KIM 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, OSMAN T 780.79 FATIGUE 08/04/2008 KIM 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 OSMAN T 784.0 Headache 08/04/2008 ROLON DO, EMIL K 577.9 PANCREATITIS 08/04/2008 ROLON DO, EMIL K 780.79 FATIGUE 08/04/2008 ROLON DO, EMIL K 784.0 Headache 08/04/2008 ROLON DO, EMIL K 577.9 PANCREATITIS 08/04/2008 ROLON DO, EMIL K 780.79 FATIGUE 08/04/2008 ROLON DO, EMIL K 784.0 Headache 08/04/2008 LUIS ALFREDO 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, BRENNA R 577.9 PANCREATITIS 08/04/2008 LUIS ALFREDO 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, BRENNA R 780.79 FATIGUE 08/04/2008 LUIS ALFREDO 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, BRENNA R 784.0 Headache 08/04/2008 MAD 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, ANSON L 577.9 PANCREATITIS 08/04/2008 MAD 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, ANSON L 780.79 FATIGUE 08/04/2008 MAD 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, ANSON L 784.0 Headache 08/04/2008 LUIS ALFREDO YUN, BRENNA R 577.9 PANCREATITIS 08/04/2008 LUIS ALFREDO 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, BRENNA R 780.79 FATIGUE 08/04/2008 LUIS ALFREDO YUN, BRENNA R 784.0 Headache 08/04/2008 SAI PARISH, CARMEN N 577.9 PANCREATITIS 08/04/2008 CARMEN GIBBS MD N 780.79 FATIGUE 08/04/2008 CARMEN GIBBS MD N 784.0 Headache 08/04/2008 ROLON DO, EMIL K 577.9 PANCREATITIS 08/04/2008 ROLON DO, EMIL K 780.79 FATIGUE 08/04/2008 ROLON DO, EMIL K 784.0 Headache 08/04/2008 MICHELINE 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, RAQUEL R 577.9 PANCREATITIS 08/04/2008 MICHELINE 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, RAQUEL R 780.79 FATIGUE 08/04/2008 MICHELINE 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, RAQUEL R 784.0 Headache 08/04/2008 CARMEN GIBBS MD N 577.9 PANCREATITIS 08/04/2008 CARMEN GIBBS MD N 780.79 FATIGUE 08/04/2008 CARMEN GIBBS MD N 784.0 Headache 08/04/2008 LOBATO 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, BRENNA R 577.9 PANCREATITIS 08/04/2008 LOBATO 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, BRENNA R 780.79 FATIGUE 08/04/2008 LOBATO 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, BRENNA R 784.0 Headache 08/04/2008 MICHELINE 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, RAQUEL R 577.9 PANCREATITIS 08/04/2008 MICHELINE 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, RAQUEL R 780.79 FATIGUE 08/04/2008 MICHELINE 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, RAQUEL R 784.0 Headache 08/04/2008 CARMEN GIBBS MD N 577.9 PANCREATITIS 08/04/2008 CARMEN GIBBS MD N 780.79 FATIGUE 08/04/2008 CARMEN GIBBS MD N 784.0 Headache 08/04/2008 MADL 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, ANSON L 577.9 PANCREATITIS 08/04/2008 MADL 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, ANSON L 780.79 FATIGUE 08/04/2008 MADL 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, ANSON L 784.0 Headache 08/04/2008 MADL 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, ANSON L 577.9 PANCREATITIS 08/04/2008 MADL 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, ANSON L 780.79 FATIGUE 08/04/2008 MADL 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, ANSNO L 784.0 Headache 08/04/2008 MICHELINE 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, RAQUEL R 577.9 PANCREATITIS 08/04/2008 MICHELINE 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, RAQUEL R 780.79 FATIGUE 08/04/2008 MICHELINE 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, RAQUEL R 784.0 Headache 08/04/2008 WHITE DDS, [...] DO, EMIL K 784.0 Headache 08/04/2008 MADL 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, ANSON L 577.9 PANCREATITIS 08/04/2008 MADL 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, ANSON L 780.79 FATIGUE 08/04/2008 MADL 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, ANSON L 784.0 Headache 08/04/2008 CARMEN GIBBS MD N 577.9 PANCREATITIS 08/04/2008 CARMEN GIBBS MD N 780.79 FATIGUE 08/04/2008 CARMEN GIBBS MD N 784.0 Headache 08/04/2008 CARMEN GIBBS MD N 577.9 PANCREATITIS 08/04/2008 CARMEN GIBBS MD N 780.79 FATIGUE 08/04/2008 CARMEN GIBBS MD N 784.0 Headache 08/04/2008 MADL 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, ANSON L 577.9 PANCREATITIS 08/04/2008 MADL 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, ANSON L 780.79 FATIGUE 08/04/2008 MADL 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, ANSON L 784.0 Headache 08/04/2008 GONZALES GAMING [...] BAUMANN, BRENNA R 493.90 ASTHMA 03/31/2009 MICHELINE 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, RAQUEL R 493.90 ASTHMA 03/31/2009 CARMEN GIBBS MD N 493.90 ASTHMA 03/31/2009 MADL 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, ANSON L 493.90 ASTHMA 03/31/2009 MADL 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, ANSON L 493.90 ASTHMA 03/31/2009 MICHELINE 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, RAQUEL R 493.90 ASTHMA 03/31/2009 JOSH VILLAVICENCIO, ELLIOT Alston 493.90 ASTHMA 03/31/2009 SAI PARISH, CARMEN N 493.90 ASTHMA 03/31/2009 SUDHIR ROLON DOA K 493.90 ASTHMA 03/31/2009 MADBenji 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, ANSON L 493.90 ASTHMA 03/31/2009 CARMEN GIBBS MD N 493.90 ASTHMA 03/31/2009 CARMEN GIBBS MD N 493.90 ASTHMA 03/31/2009 MADL 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, ANSON L 493.90 ASTHMA 03/31/2009 SUDHIR ROLON [...] Screening Examination For Pulmonary Tuberculosis 04/25/2009 SHERI 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, ANSON L V74.1 Screening Examination For Pulmonary [...] N 112.0 Candidiasis Oral Thrush 04/26/2009 MADL 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, ANSON L 112.0 Candidiasis Oral Thrush 04/26/2009 MADL 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, ANSON L 112.0 Candidiasis Oral Thrush 04/26/2009 MALACHI TOBIAS APRNINA R 112.0 Candidiasis Oral Thrush 04/26/2009 ELLIOT MORENO DDS 112.0 Candidiasis Oral Thrush 04/26/2009 CARMEN GIBBS MD N 112.0 Candidiasis Oral Thrush 04/26/2009 SUDHIR ROLON DOA K 112.0 Candidiasis Oral Thrush 04/26/2009 SHERI BAUMANN, ANSON L 112.0 Candidiasis Oral Thrush 04/26/2009 CARMEN IGBBS MD N 112.0 Candidiasis Oral Thrush 04/26/2009 [...] WADE APRN 597.80 Urethritis, Unspecified 09/05/2009 LOBATO 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, BRENNA R 597.80 Urethritis, Unspecified 09/05/2009 SAI PARISH, CARMEN N 597.80 Urethritis, Unspecified 09/05/2009 ROLON DO, EMIL K 597.80 Urethritis, Unspecified 09/05/2009 MICHELINE 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, RAQUEL R 597.80 Urethritis, Unspecified 09/05/2009 SAI PARISH, CARMEN N 597.80 Urethritis, Unspecified 09/05/2009 CRISTINO LOBATO APRNIA R 597.80 Urethritis, Unspecified 09/05/2009 MICHELINE 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, RAQUEL R 597.80 Urethritis, Unspecified 09/05/2009 SAI PARISH, CARMEN N 597.80 Urethritis, Unspecified 09/05/2009 MADL 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, ANSON L 597.80 Urethritis, Unspecified 09/05/2009 MADL 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, ANSON L 597.80 Urethritis, Unspecified 09/05/2009 MICHELINE 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, RAQUEL R 597.80 Urethritis, Unspecified 09/05/2009 JOSH VILLAVICENCIO, ELLIOT Alston 597.80 Urethritis, Unspecified 09/05/2009 SAI PARISH, CARMEN N 597.80 Urethritis, Unspecified 09/05/2009 GONZALES GAMING, EMIL K 597.80 Urethritis, Unspecified 09/05/2009 MADBenji 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, ANSON L 597.80 Urethritis, Unspecified 09/05/2009 SAI PARISH, CARMEN N 597.80 Urethritis, Unspecified 09/05/2009 SAI PARISH, CARMEN N 597.80 Urethritis, Unspecified 09/05/2009 MADL 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, ANSON L 597.80 Urethritis, Unspecified 09/05/2009 ROLON [...] Pain In Joint, Lower Leg 09/24/2009 MADL 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, ANSON L 719.46 Pain In Joint, Lower Leg 09/24/2009 MADL 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, ANSON L 719.46 Pain In Joint, Lower [...] EMIL K 717.7 Chondromalacia Of Patella 10/06/2009 ORLON DO, EMIL K 717.7 Chondromalacia Of Patella [...] EMIL K 733.92 Chondromalacia 11/03/2009 ROLON DO, EMLI K 733.92 Chondromalacia 11/03/2009 OSMAN ALVAREZ APRN [...] ROLON DO, EMIL K 704.8 Folliculitis 12/20/2009 RLOON DO, EMIL K 704.8 Folliculitis 12/20/2009 OSMAN ALVAREZ APRN 704.8 Folliculitis 12/20/2009 ROLON DO, EMIL K 704.8 Folliculitis 12/20/2009 ROLON DO, EMIL K 704.8 Folliculitis 12/20/2009 BRENNA LOBATO APRN R 704.8 Folliculitis 12/20/2009 ANSNO WADE APRN L 704.8 Folliculitis 12/20/2009 BRENNA LOBATO APRN R 704.8 Folliculitis 12/20/2009 CARMEN GIBBS MD N 704.8 Folliculitis 12/20/2009 ROLON DO, EMIL K 704.8 Folliculitis 12/20/2009 MICHELINE BAUMANN, RAQUEL R 704.8 Folliculitis 12/20/2009 CARMEN GIBBS MD N 704.8 Folliculitis 12/20/2009 BRENNA LOBATO APRN R 704.8 Folliculitis 12/20/2009 MICHELINE BAUMANN, RAQUEL R 704.8 Folliculitis 12/20/2009 CARMEN GIBBS MD N 704.8 Folliculitis 12/20/2009 MADBenji 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, ANSON L 704.8 Folliculitis 12/20/2009 JOSE FRANCISCOL [...] 787.3 Flatulence, Eructation, And Gas Pain 12/29/2009 CAMREN GIBBS MD 787.3 Flatulence, Eructation, And Gas [...] 787.3 Flatulence, Eructation, And Gas Pain 12/29/2009 CARMNE GIBBS MD 787.3 Flatulence, Eructation, And Gas [...] N 709.9 Dermatology - Non-infectious 02/03/2010 MADL 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, ANSON L 709.9 Dermatology - Non-infectious 02/03/2010 MADL 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, ANSON L 709.9 Dermatology - Non-infectious 02/03/2010 MICHELINE 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, RAQUEL R 709.9 Dermatology - Non-infectious 02/03/2010 JOSH JETERS, ELLIOT J 709.9 Dermatology - Non-infectious 02/03/2010 SAI PARISH, CARMEN N 709.9 Dermatology - Non-infectious 02/03/2010 ROLON , EMIL K 709.9 Dermatology - Non-infectious 02/03/2010 MADBenji 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, ANSON L 709.9 Dermatology - Non-infectious 02/03/2010 SAI PARISH, CARMEN N 709.9 Dermatology - Non-infectious 02/03/2010 SAI PARISH, CARMEN N 709.9 Dermatology - Non-infectious 02/03/2010 SHERI 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, ANSON L 709.9 Dermatology - Non-infectious 02/03/2010 [...] BAUMANN, BRENNA R 276.5 DEHYDRATION 02/08/2010 MADL 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, ANSON L 276.5 DEHYDRATION 02/08/2010 LUIS ALFREDO BAUMANN, BRENNA R 276.5 DEHYDRATION 02/08/2010 CARMEN GIBBS MD N 276.5 DEHYDRATION 02/08/2010 ROLON DO, EMIL K 276.5 DEHYDRATION 02/08/2010 MICHELINE BAUMANN, RAQUEL R 276.5 DEHYDRATION 02/08/2010 CARMEN GIBBS MD N 276.5 DEHYDRATION 02/08/2010 CRISTINO LOBATO APRNIA R 276.5 DEHYDRATION 02/08/2010 MICHELINE BAUMANN, RAQUEL R 276.5 DEHYDRATION 02/08/2010 CARMEN GIBBS MD N 276.5 DEHYDRATION 02/08/2010 SHERI 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, ANSON L 276.5 DEHYDRATION 02/08/2010 MADBenji 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, ANSON L 276.5 DEHYDRATION 02/08/2010 MICHELINE 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, RAQUEL R 276.5 DEHYDRATION 02/08/2010 ELLIOT MORENO [...] DO K 110.4 Dermatophytosis, Of Foot 02/15/2010 RAQULE TOBIAS APRN R 110.4 Dermatophytosis, Of Foot [...] EMIL K 788.31 Urge Incontinence 05/22/2010 MICHELINE 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, RAQUEL R 788.31 Urge Incontinence 05/22/2010 CARMEN GIBBS MD N 788.31 Urge Incontinence 05/22/2010 CRISTINO LOBATO APRNIA R 788.31 Urge Incontinence 05/22/2010 MICHELINE 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, RAQUEL R 788.31 Urge Incontinence 05/22/2010 CARMEN GIBBS MD N 788.31 Urge Incontinence 05/22/2010 MADL 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, ANSON L 788.31 Urge Incontinence 05/22/2010 MADL 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, ANSON L 788.31 Urge Incontinence 05/22/2010 MICHELINE [...] Weight Gain (___ Lbs) [reported] 06/20/2010 BRENNA LOABTO APRN R 783.1 Recent Weight Gain (___ [...] DO, EMIL K 706.8 Xerosis 08/22/2010 KIM 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, OSMAN T 272.4 HYPERLIPIDEMIA 08/22/2010 KIM 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 OSMAN T 706.8 Xerosis 08/22/2010 ROLON DO, EMIL K 272.4 HYPERLIPIDEMIA 08/22/2010 ROLON DO, EMIL K 706.8 Xerosis 08/22/2010 ROLON DO, EMIL K 272.4 HYPERLIPIDEMIA 08/22/2010 ROLON DO, EMIL K 706.8 Xerosis 08/22/2010 LUIS ALFREDO 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, BRENNA R 272.4 HYPERLIPIDEMIA 08/22/2010 LOBATO 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, BRENNA R 706.8 Xerosis 08/22/2010 MADL 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, ANSON L 272.4 HYPERLIPIDEMIA 08/22/2010 MADL 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, ANSON L 706.8 Xerosis 08/22/2010 LUIS ALFREDO [...] GIBBS MD N 706.8 Xerosis 08/22/2010 MADL 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, ANSON L 272.4 HYPERLIPIDEMIA 08/22/2010 MADL 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, ANSON L 706.8 Xerosis 08/22/2010 MADL 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, ANSON L 272.4 HYPERLIPIDEMIA 08/22/2010 MADL 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, ANSON L 706.8 Xerosis 08/22/2010 MICHELINE 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, RAQUEL R 272.4 HYPERLIPIDEMIA 08/22/2010 MICHELINE 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, RAQUEL R 706.8 Xerosis 08/22/2010 WHITE DDS, ELLIOT J 272.4 HYPERLIPIDEMIA 08/22/2010 WHITE DDS, ELLIOT J 706.8 Xerosis 08/22/2010 CARMEN GIBBS MD N 272.4 HYPERLIPIDEMIA 08/22/2010 CARMEN GIBBS MD N 706.8 Xerosis 08/22/2010 ROLON DO, EMIL K 272.4 HYPERLIPIDEMIA 08/22/2010 ROLON DO, EMIL K 706.8 Xerosis 08/22/2010 MADL 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, ANSON L 272.4 HYPERLIPIDEMIA 08/22/2010 MADL 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, ANSON L 706.8 Xerosis 08/22/2010 CARMEN GIBBS MD N 272.4 HYPERLIPIDEMIA 08/22/2010 CARMEN GIBBS MD N 706.8 Xerosis 08/22/2010 CARMEN GIBBS MD N 272.4 HYPERLIPIDEMIA 08/22/2010 CARMEN GIBBS MD N 706.8 Xerosis 08/22/2010 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 ANSON L 272.4 HYPERLIPIDEMIA 08/22/2010 MADL 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, ANSON L 706.8 Xerosis 08/22/2010 ROLON DO, [...] GIDDINESS 09/16/2010 Ot 784.0 HEADACHE 09/20/2010 REGINO BOYD DDS 787.01 Nausea With Vomiting 09/20/2010 [...] BRENNA R 577.1 CHRONIC PANCREATITIS 09/28/2010 SHERI 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, ANSON L 577.1 CHRONIC PANCREATITIS 09/28/2010 LUIS [...] GIBBS MD 577.1 CHRONIC PANCREATITIS 09/28/2010 SHERI 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, ANSON L 577.1 CHRONIC PANCREATITIS 09/28/2010 JOSE FRANCISCOL 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, ANSON L 577.1 CHRONIC PANCREATITIS 09/28/2010 MICHELINE [...] 780.4 Dizziness And Vertigo 10/04/2010 ROLON DO, EMLI K 780.4 Dizziness And Vertigo 10/04/2010 BRENNA [...] APRNA L 782.3 Edema 10/25/2010 SHERI BAUMANN, ASNON L 782.3 Edema 10/25/2010 MICHELINE BAUMANN RAQUEL [...] GIBBS MD 599.70 Hematuria Unspecified 12/27/2010 CARMEN IGBBS MD 789.01 Abdominal Pain Right Upper Quadrant [...] Abdominal Pain Right Upper Quadrant 12/27/2010 SHERI 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, ANSON L 599.70 Hematuria Unspecified 12/27/2010 MADBenji 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, ANSNO L 789.01 Abdominal Pain Right Upper Quadrant 12/27/2010 SHERI BAUMANN, ANSON L 599.70 Hematuria Unspecified 12/27/2010 SHERI 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, ANSON L 789.01 Abdominal Pain Right Upper [...] APRNWNYA L 599.70 Hematuria Unspecified 12/27/2010 MADL 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, ANSON L 789.01 Abdominal Pain Right Upper Quadrant 12/27/2010 CARMEN GIBBS MD N 599.70 Hematuria Unspecified 12/27/2010 CARMEN GIBBS MD N 789.01 Abdominal Pain Right Upper Quadrant 12/27/2010 CARMEN GIBBS MD N 599.70 Hematuria Unspecified 12/27/2010 CARMEN GIBBS MD 789.01 Abdominal Pain Right Upper Quadrant 12/27/2010 MADL 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, ANSON L 599.70 Hematuria Unspecified 12/27/2010 MADL 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, ANSON L 789.01 Abdominal Pain Right Upper [...] R 786.52 Chest Wall Pain 01/11/2011 MADL 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, ANSON L 786.52 Chest Wall Pain 01/11/2011 [...] MD 786.52 Chest Wall Pain 01/11/2011 SHERI 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, ANSON L 786.52 Chest Wall Pain 01/11/2011 SHERI 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, ANSON L 786.52 Chest Wall Pain 01/11/2011 MICHELINE BAUMANN RAQUEL R 786.52 Chest Wall Pain 01/11/2011 WHITE DDS, ELLIOT J 786.52 Chest Wall Pain 01/11/2011 CARMEN GIBBS MD 786.52 Chest Wall Pain 01/11/2011 ROLON DO, EMIL K 786.52 Chest Wall Pain 01/11/2011 MADBenji 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, ANSON L 786.52 Chest Wall Pain 01/11/2011 CARMEN GIBBS MD 786.52 Chest Wall Pain 01/11/2011 CARMEN GIBBS MD 786.52 Chest Wall Pain 01/11/2011 MADL 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, ANSON L 786.52 Chest Wall Pain 01/11/2011 [...] APRNIA R 780.52 INSOMNIA UNSPECIFIED 01/15/2011 MADBenji 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LETICIA ChristieA L 564.00 Constipation 01/15/2011 JOSE FRANCISCO 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, ANSON L 780.52 INSOMNIA UNSPECIFIED 01/15/2011 CRISTINO [...] GIBBS MD 780.52 INSOMNIA UNSPECIFIED 01/15/2011 MADL 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, ANSON L 564.00 Constipation 01/15/2011 MADL 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, ANSON L 780.52 INSOMNIA UNSPECIFIED 01/15/2011 MADL 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, ANSON L 564.00 Constipation 01/15/2011 MADL 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, ANSON L 780.52 INSOMNIA UNSPECIFIED 01/15/2011 MICHELINE 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, RAQUEL R 564.00 Constipation 01/15/2011 MICHELINE 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, RAQUEL R 780.52 INSOMNIA UNSPECIFIED 01/15/2011 WHITE DDS, ELLIOT J 564.00 Constipation 01/15/2011 WHITE DDS, ELLIOT J 780.52 INSOMNIA UNSPECIFIED 01/15/2011 CARMEN GIBBS MD N 564.00 Constipation 01/15/2011 CARMEN GIBBS MD 780.52 INSOMNIA UNSPECIFIED 01/15/2011 SUDHIR ROLON DOA K 564.00 Constipation 01/15/2011 SUDHIR ROLON DOA K 780.52 INSOMNIA UNSPECIFIED 01/15/2011 MADL 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, ANSON L 564.00 Constipation 01/15/2011 MADL 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, ANSON L 780.52 INSOMNIA UNSPECIFIED 01/15/2011 CARMEN GIBBS MD N 564.00 Constipation 01/15/2011 CARMEN GIBBS MD 780.52 INSOMNIA UNSPECIFIED 01/15/2011 CARMEN GIBBS MD N 564.00 Constipation 01/15/2011 CARMEN GIBBS MD 780.52 INSOMNIA UNSPECIFIED 01/15/2011 MADL 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, ANSON L 564.00 Constipation 01/15/2011 MADL 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, ANSON L 780.52 INSOMNIA UNSPECIFIED 01/15/2011 ROLON DO EMIL K 564.00 Constipation 01/15/2011 ROLON DO EMIL K 780.52 INSOMNIA UNSPECIFIED 02/02/2011 MUOGHALU DDS, REGINO N 401.1 HYPERTENSION, BENIGN ESSENTIAL 02/02/2011 BONITAU DDSREGINO N V17.49 FAM HX HYPERTENSION 02/02/2011 401.1 HYPERTENSION, BENIGN ESSENTIAL 02/02/2011 V17.49 FAM HX HYPERTENSION 02/02/2011 LOBATO 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, BRENNA R 401.1 HYPERTENSION, BENIGN ESSENTIAL 02/02/2011 [...] R V17.49 FAM HX HYPERTENSION 02/02/2011 MADL 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, ANSON L 401.1 HYPERTENSION, BENIGN ESSENTIAL 02/02/2011 SHERI YUN, ANSON L V17.49 FAM HX HYPERTENSION 02/02/2011 EMERY LOBATO APRNRICIA R 401.1 HYPERTENSION, BENIGN ESSENTIAL 02/02/2011 CRISTINO LOBATO APRNIA R V17.49 FAM HX HYPERTENSION 02/02/2011 CARMEN GBIBS MD N 401.1 HYPERTENSION, BENIGN ESSENTIAL 02/02/2011 [...] MD V17.49 FAM HX HYPERTENSION 02/02/2011 MADL 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, ANSON L 401.1 HYPERTENSION, BENIGN ESSENTIAL 02/02/2011 MADL 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, ANSON L V17.49 FAM HX HYPERTENSION 02/02/2011 MADL 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, ANSON L 401.1 HYPERTENSION, BENIGN ESSENTIAL 02/02/2011 MADL 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, ANSON L V17.49 FAM HX HYPERTENSION 02/02/2011 MICHELINE 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, RAQUEL R 401.1 HYPERTENSION, BENIGN ESSENTIAL 02/02/2011 MICHELINE 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, RAQUEL R V17.49 FAM HX HYPERTENSION 02/02/2011 WHITE DDS, ELLIOT J 401.1 HYPERTENSION, BENIGN ESSENTIAL 02/02/2011 WHITE DDS, ELLIOT J V17.49 FAM HX HYPERTENSION 02/02/2011 CARMEN GIBBS MD N 401.1 HYPERTENSION, BENIGN ESSENTIAL 02/02/2011 CARMEN GIBBS MD N V17.49 FAM HX HYPERTENSION 02/02/2011 ROLON DO, EMIL K 401.1 HYPERTENSION, BENIGN ESSENTIAL 02/02/2011 ROLON DO, EMIL K V17.49 FAM HX HYPERTENSION 02/02/2011 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, ANSON L 401.1 HYPERTENSION, BENIGN ESSENTIAL 02/02/2011 [facility] 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, ANSON L V17.49 FAM HX HYPERTENSION 02/02/2011 CARMEN GIBBS MD N 401.1 HYPERTENSION, BENIGN ESSENTIAL 02/02/2011 CARMEN GIBBS MD N V17.49 FAM HX HYPERTENSION 02/02/2011 CARMEN GIBBS MD N 401.1 HYPERTENSION, BENIGN ESSENTIAL 02/02/2011 CARMEN GIBBS MD N V17.49 FAM HX HYPERTENSION 02/02/2011 [facility] 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, ANSON L 401.1 HYPERTENSION, BENIGN ESSENTIAL 02/02/2011 [facility] 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, ANSON L V17.49 FAM HX HYPERTENSION 02/02/2011 [...] 386.11 Vertigo- Benign Paroxysmal Positional 03/28/2011 MICHELINE BAMUANN RAQUEL R 386.11 Vertigo- Benign Paroxysmal Positional 03/28/2011 CARMEN GIBBS MD N 386.11 Vertigo- Benign Paroxysmal Positional 03/28/2011 EMERY LOBATO APRNRICIA R 386.11 Vertigo- Benign Paroxysmal Positional 03/28/2011 MICHELINE BAUMANN RAQUEL R 386.11 Vertigo- Benign Paroxysmal Positional 03/28/2011 CARMEN GIBBS MD N 386.11 Vertigo- Benign Paroxysmal Positional 03/28/2011 MADL 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, ANSON L 386.11 Vertigo- Benign Paroxysmal Positional 03/28/2011 MADL 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, ANSON L 386.11 Vertigo- Benign Paroxysmal Positional 03/28/2011 MICHELINE BAUMANN RAQUEL R 386.11 Vertigo- Benign Paroxysmal Positional 03/28/2011 JOSH VILLAVICENCIO, ELLIOT J 386.11 Vertigo- Benign Paroxysmal Positional 03/28/2011 CARMEN GIBBS MD N 386.11 Vertigo- Benign Paroxysmal Positional 03/28/2011 ROLON DO, EMIL K 386.11 Vertigo- Benign Paroxysmal Positional 03/28/2011 MADL 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, ANSON L 386.11 Vertigo- Benign Paroxysmal Positional 03/28/2011 CARMEN GIBBS MD N 386.11 Vertigo- Benign Paroxysmal Positional 03/28/2011 CARMEN GIBBS MD N 386.11 Vertigo- Benign Paroxysmal Positional 03/28/2011 MADL 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, ANSON L 386.11 Vertigo- Benign Paroxysmal Positional [...] Of Foot And Toes Without Infection 04/12/2011 ACRMEN GIBBS MD V04.81 Flu Dx (3 Yrs [...] (3 Yrs And Above, Im) 04/12/2011 LOBATO 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, BRENNA R 892.0 Open Wound Of Foot Except Toe(s) Alone Without Complication 04/12/2011 LOBATO 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, BRENNA R 917.8 Other And Unspecified Superficial Injury Of Foot And Toes Without Infection 04/12/2011 LOBATO 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, BRENNA R V04.81 Flu Dx (3 Yrs And Above, Im) 04/12/2011 MADL 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, ANSON L 892.0 Open Wound Of Foot Except Toe(s) Alone Without Complication 04/12/2011 MADL 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, ANSON L 917.8 Other And Unspecified Superficial Injury Of Foot And Toes Without Infection 04/12/2011 MADL 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, ANSON L V04.81 Flu Dx (3 Yrs And Above, Im) 04/12/2011 LOBATO 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, BRENNA R 892.0 Open Wound Of Foot Except Toe(s) Alone Without Complication 04/12/2011 LOBATO 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, BRENNA R 917.8 Other And Unspecified Superficial Injury Of Foot And Toes Without Infection 04/12/2011 LUIS ALFREDO 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, BRENNA R V04.81 Flu Dx (3 Yrs [...] Foot And Toes Without Infection 04/12/2011 MICHELINE 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, RAQUEL R V04.81 Flu Dx (3 Yrs And Above, Im) 04/12/2011 CARMEN GIBBS MD N 892.0 Open Wound Of Foot Except Toe(s) Alone Without Complication 04/12/2011 CARMEN GIBBS MD N 917.8 Other And Unspecified Superficial Injury Of Foot And Toes Without Infection 04/12/2011 CARMEN GIBBS MD V04.81 Flu Dx (3 Yrs And Above, Im) 04/12/2011 MADL 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, ANSON L 892.0 Open Wound Of Foot Except Toe(s) Alone Without Complication 04/12/2011 MADL 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, ANSON L 917.8 Other And Unspecified Superficial Injury Of Foot And Toes Without Infection 04/12/2011 MADL 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, ANSON L V04.81 Flu Dx (3 Yrs And Above, Im) 04/12/2011 MADL 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, ANSON L 892.0 Open Wound Of Foot Except Toe(s) Alone Without Complication 04/12/2011 MADL 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, ANSON L 917.8 Other And Unspecified Superficial Injury Of Foot And Toes Without Infection 04/12/2011 MADL 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, ANSON L V04.81 Flu Dx (3 Yrs And Above, Im) 04/12/2011 MICHELINE 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, RAQUEL R 892.0 Open Wound Of Foot Except Toe(s) Alone Without Complication 04/12/2011 MICHELINE 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, RAQUEL R 917.8 Other And Unspecified Superficial [...] (3 Yrs And Above, Im) 04/12/2011 MADL 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, ANSON L 892.0 Open Wound Of Foot Except Toe(s) Alone Without Complication 04/12/2011 MADL 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, ANSON L 917.8 Other And Unspecified Superficial Injury Of Foot And Toes Without Infection 04/12/2011 MADL 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, ANSON L V04.81 Flu Dx (3 Yrs [...] (3 Yrs And Above, Im) 04/12/2011 MADBenji 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, ANSON L 892.0 Open Wound Of Foot Except Toe(s) Alone Without Complication 04/12/2011 MADBenji 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, ANSON L 917.8 Other And Unspecified Superficial Injury Of Foot And Toes Without Infection 04/12/2011 MADL 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, ANSON L V04.81 Flu Dx (3 Yrs [...] 477.9 ALLERGIC RHINITIS CAUSE UNSPECIFIED 04/13/2011 CARMEN IGBBS MD 477.9 ALLERGIC RHINITIS CAUSE UNSPECIFIED 04/13/2011 [...] ALLERGIC RHINITIS CAUSE UNSPECIFIED 04/13/2011 ROLON DO, EMLI K 477.9 ALLERGIC RHINITIS CAUSE UNSPECIFIED 04/13/2011 [...] 477.9 ALLERGIC RHINITIS CAUSE UNSPECIFIED 04/13/2011 MADL 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, ANSON L 477.9 ALLERGIC RHINITIS CAUSE UNSPECIFIED 04/13/2011 MADL 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 ANSON L 477.9 ALLERGIC RHINITIS CAUSE UNSPECIFIED 04/13/2011 MALACHI TOBIAS APRNINA R 477.9 ALLERGIC RHINITIS CAUSE UNSPECIFIED 04/13/2011 ELLIOT MORENO DDS 477.9 ALLERGIC RHINITIS CAUSE UNSPECIFIED 04/13/2011 CARMEN GIBBS MD N 477.9 ALLERGIC RHINITIS CAUSE UNSPECIFIED 04/13/2011 SUDHIR ROLON DOA K 477.9 ALLERGIC RHINITIS CAUSE UNSPECIFIED 04/13/2011 MADBenji BAMUANN ANSON L 477.9 ALLERGIC RHINITIS CAUSE UNSPECIFIED [...] 789.00 Abdominal Pain Unspecified Site 04/17/2011 LOBATO 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, BRENNA R 599.0 Urinary Tract Infection 04/17/2011 LOBATO 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, BRENNA R 789.00 Abdominal Pain Unspecified Site [...] APRN 599.0 Urinary Tract Infection 04/17/2011 KIM 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, OSMAN T 789.00 Abdominal Pain Unspecified Site [...] 789.00 Abdominal Pain Unspecified Site 04/17/2011 MADL 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, ANSON L 599.0 Urinary Tract Infection 04/17/2011 MADL 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, ANSON L 789.00 Abdominal Pain Unspecified Site [...] 789.00 Abdominal Pain Unspecified Site 04/17/2011 MADL 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, ANSON L 599.0 Urinary Tract Infection 04/17/2011 MADL 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, ANSON L 789.00 Abdominal Pain Unspecified Site 04/17/2011 MADL 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, ANSON L 599.0 Urinary Tract Infection 04/17/2011 MADL 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, ANSON L 789.00 Abdominal Pain Unspecified Site 04/17/2011 MICHELINE 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, RAQUEL R 599.0 Urinary Tract Infection 04/17/2011 MICHELINE 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, RAQUEL R 789.00 Abdominal Pain Unspecified Site [...] 789.00 Abdominal Pain Unspecified Site 04/17/2011 MADL 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, ANOSN L 599.0 Urinary Tract Infection 04/17/2011 MADL 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, ANSON L 789.00 Abdominal Pain Unspecified Site 04/17/2011 CARMEN GIBBS MD N 599.0 Urinary Tract Infection 04/17/2011 CARMEN GIBBS MD N 789.00 Abdominal Pain Unspecified Site 04/17/2011 CARMEN GIBBS MD N 599.0 Urinary Tract Infection 04/17/2011 CARMEN GIBBS MD N 789.00 Abdominal Pain Unspecified Site 04/17/2011 MADL 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, ANSON L 599.0 Urinary Tract Infection 04/17/2011 MADL 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, ANSON L 789.00 Abdominal Pain Unspecified Site 04/17/2011 ROLON DO, EMIL K 599.0 Urinary Tract Infection 04/17/2011 ROLON DO, EMIL K 789.00 Abdominal Pain Unspecified Site 05/01/2011 DEB JETERS, REGINO N 625.9 Pelvic Pain 05/01/2011 625.9 Pelvic Pain 05/01/2011 LOBATO 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, BRENNA R 625.9 Pelvic Pain 05/01/2011 ROLON [...] K 625.9 Pelvic Pain 05/01/2011 LUIS ALFREDO 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, BRENNA R 625.9 Pelvic Pain 05/01/2011 JOSE FRANCISCOL 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, ANSON L 625.9 Pelvic Pain 05/01/2011 LUIS ALFREDO YUN, BRENNA R 625.9 Pelvic Pain 05/01/2011 CARMEN GIBBS MD N 625.9 Pelvic Pain 05/01/2011 ROLON DO, EMIL K 625.9 Pelvic Pain 05/01/2011 MICHELINE 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, RAQUEL R 625.9 Pelvic Pain 05/01/2011 CARMEN GIBBS MD N 625.9 Pelvic Pain 05/01/2011 LOBATO 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, BRENNA R 625.9 Pelvic Pain 05/01/2011 MICHELINE YUN, RAQUEL R 625.9 Pelvic Pain 05/01/2011 CARMEN GIBBS MD N 625.9 Pelvic Pain 05/01/2011 MADL 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, ANSON L 625.9 Pelvic Pain 05/01/2011 MADL 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, ANSON L 625.9 Pelvic Pain 05/01/2011 MICHELINE [...] 786.50 Chest Pain Or Discomfort 05/30/2011 MADL 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, ANSON L 786.50 Chest Pain Or Discomfort [...] APRN 333.94 RESTLESS LEGS SYNDROME (RLS) 07/31/2011 EMLI ROLON DO 333.94 RESTLESS LEGS SYNDROME (RLS) [...] DO K 256.4 POLYCYSTIC OVARIAN SYNDROME 10/30/2011 LETCIIA WADE APRNA L 256.4 POLYCYSTIC OVARIAN SYNDROME [...] 11/05/2011 V74.5 Std Screen 11/05/2011 LUIS ALFREDO 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, BRENNA R 685.1 Pilonidal Cyst Without Abscess 11/05/2011 LUIS ALFREDO 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, BRENNA R V25.09 CONTRACEPTIVE COUNSELING - GENERAL 11/05/2011 LUIS ALFREDO 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, BRENNA R V65.3 COUNSELING - DIETARY 11/05/2011 [...] K 685.1 Pilonidal Cyst Without Abscess 11/05/2011 ROLNO DO, EMIL K V25.09 CONTRACEPTIVE COUNSELING - [...] V65.3 COUNSELING - DIETARY 11/05/2011 JOSE FRANCISCOBenji 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LETICIA ChristieA L V65.41 EXERCISE COUNSELING 11/05/2011 JOSE FRANCISCOBenji 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LETICIA ChristieA L V74.5 Std Screen 11/05/2011 MALACHI [...] EMIL K V74.5 Std Screen 11/05/2011 MADL 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, ANSON L 685.1 Pilonidal Cyst Without Abscess 11/05/2011 MADL 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, ANSON L V25.09 CONTRACEPTIVE COUNSELING - GENERAL 11/05/2011 MADL 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, ANSON L V65.3 COUNSELING - DIETARY 11/05/2011 MADL 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, ANSON L V65.41 EXERCISE COUNSELING 11/05/2011 JOSE FRANCISCOL 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, ANSON L V74.5 Std Screen 11/05/2011 CARMEN [...] GIBBS MD V74.5 Std Screen 11/05/2011 MADL 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, ANSON L 685.1 Pilonidal Cyst Without Abscess 11/05/2011 MADL 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, ANSON L V25.09 CONTRACEPTIVE COUNSELING - GENERAL 11/05/2011 MADL 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, ANSON L V65.3 COUNSELING - DIETARY 11/05/2011 MADL 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, ANSON L V65.41 EXERCISE COUNSELING 11/05/2011 MADL 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, ANSON L V74.5 Std Screen 11/05/2011 ROLON [...] JETERS, RAQUEL Galdamez V25.11 IUD INSERTION 12/31/2011 ROOLN DO, EMIL K V25.11 IUD INSERTION 12/31/2011 [...] EMIL K 078.11 Condyloma Acuminatum 01/21/2012 LOBATO 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, BRENNA R 078.11 Condyloma Acuminatum 01/21/2012 SHERI 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, ANSON L 078.11 Condyloma Acuminatum 01/21/2012 LUIS ALFREDO BAUMANN, BRENNA R 078.11 Condyloma Acuminatum 01/21/2012 CARMEN GIBBS MD N 078.11 Condyloma Acuminatum 01/21/2012 EMIL ROLON DO K 078.11 Condyloma Acuminatum 01/21/2012 MICHELINE BAUMANN, RAQUEL R 078.11 Condyloma Acuminatum 01/21/2012 CARMEN GIBBS MD N 078.11 Condyloma Acuminatum 01/21/2012 CRISTINO LOBATO APRNIA R 078.11 Condyloma Acuminatum 01/21/2012 MIHCELINE BAUMANN, RAQUEL R 078.11 Condyloma Acuminatum 01/21/2012 CARMEN GIBBS MD N 078.11 Condyloma Acuminatum 01/21/2012 SHERI BAUMANN, ANSON L 078.11 Condyloma Acuminatum 01/21/2012 LETICIA WADE APRNA L 078.11 Condyloma Acuminatum 01/21/2012 MICHELINE BAUMANN RAQUEL R 078.11 Condyloma Acuminatum 01/21/2012 JOSH IVLLAVICENCIO, ELLIOT J 078.11 Condyloma Acuminatum 01/21/2012 CARMEN [...] LOBATO APRN R 388.70 Otalgia 03/18/2012 MICHELINE 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, RAQUEL R 388.70 Otalgia 03/18/2012 CARMEN GIBBS MD 388.70 Otalgia 03/18/2012 MADL 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, ANSON L 388.70 Otalgia 03/18/2012 MADL 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, ANSON L 388.70 Otalgia 03/18/2012 MICHELINE BAUMANN, RAQUEL R 388.70 Otalgia 03/18/2012 ELLIOT MORENO DDS 388.70 Otalgia 03/18/2012 CARMEN GIBBS MD 388.70 Otalgia 03/18/2012 EMIL ROLON DO 388.70 Otalgia 03/18/2012 MADBenji 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, ANSON L 388.70 Otalgia 03/18/2012 CARMEN GIBBS MD 388.70 Otalgia 03/18/2012 CARMEN GIBBS MD 388.70 Otalgia 03/18/2012 MADBenji 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, ANSON L 388.70 Otalgia 03/18/2012 EMIL ROLON [...] ABDOMINAL PAIN RIGHT UPPER QUADRANT 04/02/2012 CARMEN IGBBS MD 789.01 ABDOMINAL PAIN RIGHT UPPER QUADRANT [...] ABDOMINAL PAIN RIGHT UPPER QUADRANT 04/02/2012 SHERI BUAMANN ANSON L 789.01 ABDOMINAL PAIN RIGHT UPPER [...] 278.01 OBESITY, MORBID (BMI >40) 04/10/2012 OSMAN ALAVREZ APRN 278.01 OBESITY, MORBID (BMI >40) 04/10/2012 [...] Neoplasm Of Skin Site Unspecified 05/05/2012 MADL 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, ANSON L 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 05/05/2012 MADL 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, ANSON L 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 05/05/2012 MICHELINE 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, RAQUEL R 216.9 Benign Neoplasm Of Skin [...] L 461.9 Sinusitis Acute 05/12/2012 MICHELINE BAUMANN RAQULE R 461.9 Sinusitis Acute 05/12/2012 ELLIOT MORENO [...] Of Uncertain Behavior Of Skin 05/19/2012 MICHELINE 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, RAQUEL R V58.32 Suture Removal 05/19/2012 CARMEN GIBBS MD N 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 05/19/2012 CARMEN GIBBS MD N V58.32 Suture Removal 05/19/2012 LUIS AFLREDO POLISHING PAD MOUNTER, BRENNA R 238.2 Neoplasm Of Uncertain Behavior [...] Of Uncertain Behavior Of Skin 05/19/2012 MADL POLISHING PAD MOUNTER, ANSON L V58.32 Suture Removal 05/19/2012 JOSE [...] BAUMANN, BRENNA R 704.1 HIRSUTISM 07/02/2012 SHERI POLISHING PAD MOUNTER, ANSON L 704.1 HIRSUTISM 07/02/2012 LUIS ALFREDO [...] GIBBS MD N 786.2 COUGH 07/07/2012 KIM POLISHING PAD MOUNTER, OSMAN T 786.2 COUGH 07/07/2012 ROLON DO, EMIL K 786.2 COUGH 07/07/2012 ROLON DO, EMIL K 786.2 COUGH 07/07/2012 ROLON DO, EMIL K 786.2 COUGH 07/07/2012 KIM POLISHING PAD MOUNTER, OSMAN T 786.2 COUGH 07/07/2012 ROLON DO, EMIL K 786.2 COUGH 07/07/2012 ROLON DO, EMIL K 786.2 COUGH 07/07/2012 LUIS ALFREDO BAUMANN, BRENNA R 786.2 COUGH 07/07/2012 SHERI POLISHING PAD MOUNTER, ANSON L 786.2 COUGH 07/07/2012 LUIS ALFREDO [...] GIBBS MD N 786.2 COUGH 07/07/2012 SHERI POLISHING PAD MOUNTER, ANSON L 786.2 COUGH 07/07/2012 SHERI POLISHING PAD MOUNTER, ANSON L 786.2 COUGH 07/07/2012 MICHELINE BAUMANN, RAQUEL R 786.2 COUGH 07/07/2012 JOSH VILLAVICENCIO, ELLIOT Alston 786.2 COUGH 07/07/2012 CARMEN GIBBS MD N 786.2 COUGH 07/07/2012 SHERI POLISHING PAD MOUNTER, ANSON L 786.2 COUGH 07/07/2012 CARMEN GIBBS [...] EMIL K 112.1 CANDIDIASIS VAGINAL 08/20/2012 KIM POLISHING PAD MOUNTER, OSMAN T 054.9 HERPES SIMPLEX WITHOUT COMPLICATION [...] HERPES SIMPLEX WITHOUT COMPLICATION 08/20/2012 LUIS ALFREDO POLISHING PAD MOUNTER, BRENNA R 112.1 CANDIDIASIS VAGINAL 08/20/2012 SHERI POLISHING PAD MOUNTER, ANSON L 054.9 HERPES SIMPLEX WITHOUT COMPLICATION 08/20/2012 SHERI POLISHING PAD MOUNTER, ANSON L 112.1 CANDIDIASIS VAGINAL 08/20/2012 LUIS [...] 054.9 HERPES SIMPLEX WITHOUT COMPLICATION 08/20/2012 MAD POLISHING PAD MOUNTER, ANSON L 112.1 CANDIDIASIS VAGINAL 08/20/2012 [facility] POLISHING PAD MOUNTER, ANSON L 054.9 HERPES SIMPLEX WITHOUT COMPLICATION 08/20/2012 MAD POLISHING PAD MOUNTER, ANSON L 112.1 CANDIDIASIS VAGINAL 08/20/2012 MICHELINE POLISHING PAD MOUNTER, RAQUEL R 054.9 HERPES SIMPLEX WITHOUT COMPLICATION 08/20/2012 MICHELINE POLISHING PAD MOUNTER, RAQUEL R 112.1 CANDIDIASIS VAGINAL 08/20/2012 WHITE DDS, ELLIOT J 054.9 HERPES SIMPLEX WITHOUT COMPLICATION 08/20/2012 WHITE DDS, ELLIOT J 112.1 CANDIDIASIS VAGINAL 08/20/2012 CARMEN GIBBS MD N 054.9 HERPES SIMPLEX WITHOUT COMPLICATION 08/20/2012 CARMEN GIBBS MD N 112.1 CANDIDIASIS VAGINAL 08/20/2012 [facility] POLISHING PAD MOUNTER, ANSON L 054.9 HERPES SIMPLEX WITHOUT COMPLICATION 08/20/2012 [facility] POLISHING PAD MOUNTER, ANSON L 112.1 CANDIDIASIS VAGINAL 08/20/2012 CARMEN GIBBS MD N 054.9 HERPES SIMPLEX WITHOUT COMPLICATION 08/20/2012 CARMEN GIBBS MD N 112.1 CANDIDIASIS VAGINAL 08/20/2012 CARMEN GIBBS MD N 054.9 HERPES SIMPLEX WITHOUT COMPLICATION 08/20/2012 CARMEN GIBBS MD N 112.1 CANDIDIASIS VAGINAL 08/20/2012 [facility] POLISHING PAD MOUNTER, ANSON L 054.9 HERPES SIMPLEX WITHOUT COMPLICATION 08/20/2012 [facility] POLISHING PAD MOUNTER, ANSON L 112.1 CANDIDIASIS VAGINAL 08/20/2012 EMIL [...] 682.6 CELLULITIS OF LEG 05/11/2013 GEORGES [employer]N POLISHING PAD MOUNTER Ot 782.1 NONSPECIF SKIN ERUPT NEC 05/12/2013 [...] GIBBS MD 307.81 TENSION HEADACHE 05/27/2013 MADL POLISHING PAD MOUNTER, ANSON L 307.81 TENSION HEADACHE 05/27/2013 MADL POLISHING PAD MOUNTER, ANSON L 307.81 TENSION HEADACHE 05/27/2013 MICHELINE POLISHING PAD MOUNTER, RAQUEL R 307.81 TENSION HEADACHE 05/27/2013 JOSH VILLAVICENCIO, ELLIOT Alston 307.81 TENSION HEADACHE 05/27/2013 CARMEN GIBBS MD 307.81 TENSION HEADACHE 05/27/2013 MADL POLISHING PAD MOUNTER, ANSON L 307.81 TENSION HEADACHE 05/27/2013 CARMEN GIBBS MD 307.81 TENSION HEADACHE 05/27/2013 CARMEN GIBBS MD 307.81 TENSION HEADACHE 05/27/2013 MADL POLISHING PAD MOUNTER, ANSON L 307.81 TENSION HEADACHE 05/27/2013 SUDHIR [...] AND ABSCESS OF UNSPECIFIED SITES 05/29/2013 LOBATO POLISHING PAD MOUNTER, BRENNA R 682.9 CELLULITIS AND ABSCESS OF UNSPECIFIED SITES 05/29/2013 MADL POLISHING PAD MOUNTER, ANSON L 682.9 CELLULITIS AND ABSCESS OF UNSPECIFIED SITES 05/29/2013 LOBATO POLISHING PAD MOUNTER, BRENNA R 682.9 CELLULITIS AND ABSCESS OF UNSPECIFIED SITES 05/29/2013 CARMEN GIBBS MD 682.9 CELLULITIS AND ABSCESS OF UNSPECIFIED SITES 05/29/2013 ROLON DO, EMIL K 682.9 CELLULITIS AND ABSCESS OF UNSPECIFIED SITES 05/29/2013 MICHELINE POLISHING PAD MOUNTER, RAQUEL R 682.9 CELLULITIS AND ABSCESS OF UNSPECIFIED SITES 05/29/2013 CARMEN GIBBS MD 682.9 CELLULITIS AND ABSCESS OF UNSPECIFIED SITES 05/29/2013 LOBATO POLISHING PAD MOUNTER, BRENNA R 682.9 CELLULITIS AND ABSCESS OF UNSPECIFIED SITES 05/29/2013 MICHELINE POLISHING PAD MOUNTER, RAQUEL R 682.9 CELLULITIS AND ABSCESS OF UNSPECIFIED SITES 05/29/2013 CARMEN GIBBS MD N 682.9 CELLULITIS AND ABSCESS OF UNSPECIFIED SITES 05/29/2013 MADL POLISHING PAD MOUNTER, ANSON L 682.9 CELLULITIS AND ABSCESS OF UNSPECIFIED SITES 05/29/2013 MADL POLISHING PAD MOUNTER, ANSON L 682.9 CELLULITIS AND ABSCESS OF UNSPECIFIED SITES 05/29/2013 MICHELINE POLISHING PAD MOUNTER, RAQUEL R 682.9 CELLULITIS AND ABSCESS OF UNSPECIFIED SITES 05/29/2013 JOSH JETERS, ELLIOT Alston 682.9 CELLULITIS AND ABSCESS OF UNSPECIFIED SITES 05/29/2013 CARMEN GIBBS MD N 682.9 CELLULITIS AND ABSCESS OF UNSPECIFIED SITES 05/29/2013 MADL POLISHING PAD MOUNTER, ANSON L 682.9 CELLULITIS AND ABSCESS OF UNSPECIFIED SITES 05/29/2013 CARMEN GIBBS MD N 682.9 CELLULITIS AND ABSCESS OF UNSPECIFIED SITES 05/29/2013 CARMEN GIBBS MD N 682.9 CELLULITIS AND ABSCESS OF UNSPECIFIED SITES 05/29/2013 MADL POLISHING PAD MOUNTER, ASNON L 682.9 CELLULITIS AND ABSCESS OF UNSPECIFIED SITES 05/29/2013 ROLON DO, EIML K 682.9 CELLULITIS AND ABSCESS OF UNSPECIFIED [...] V58.49 WOUND DRAIN CHANGE/REMOVAL AFTER SURGERY 05/30/2013 SDUHIR ROLON DOA K V58.49 WOUND DRAIN CHANGE/REMOVAL [...] WOUND DRAIN CHANGE/REMOVAL AFTER SURGERY 05/30/2013 MADL POLISHING PAD MOUNTER, ANSON L V58.49 WOUND DRAIN CHANGE/REMOVAL AFTER SURGERY 05/30/2013 MICHELINE POLISHING PAD MOUNTER, RAQUEL R V58.49 WOUND DRAIN CHANGE/REMOVAL AFTER SURGERY 05/30/2013 JOSH JETERS, ELLIOT J V58.49 WOUND DRAIN CHANGE/REMOVAL AFTER SURGERY 05/30/2013 CARMEN GIBBS MD V58.49 WOUND DRAIN CHANGE/REMOVAL AFTER SURGERY 05/30/2013 SHERI POLISHING PAD MOUNTER, ANSON L V58.49 WOUND DRAIN CHANGE/REMOVAL AFTER SURGERY 05/30/2013 CARMEN GIBBS MD V58.49 WOUND DRAIN CHANGE/REMOVAL AFTER SURGERY 05/30/2013 CARMEN GIBBS MD V58.49 WOUND DRAIN CHANGE/REMOVAL AFTER SURGERY 05/30/2013 SHERI POLISHING PAD MOUNTER, ANSON L V58.49 WOUND DRAIN CHANGE/REMOVAL AFTER [...] THIGH) AND ANKLE WITHOUT COMPLICATION 06/05/2013 KIM POLISHING PAD MOUNTER OSMAN T 891.0 OPEN WOUND OF KNEE LEG (EXCEPT THIGH) AND ANKLE WITHOUT COMPLICATION 06/05/2013 ROLON DO, EMIL K 891.0 OPEN WOUND OF KNEE LEG (EXCEPT THIGH) AND ANKLE WITHOUT COMPLICATION 06/05/2013 ROLON DO, EMIL K 891.0 OPEN WOUND OF KNEE LEG (EXCEPT THIGH) AND ANKLE WITHOUT COMPLICATION 06/05/2013 LOBATO POLISHING PAD MOUNTER, BRENNA R 891.0 OPEN WOUND OF KNEE LEG (EXCEPT THIGH) AND ANKLE WITHOUT COMPLICATION 06/05/2013 MADL POLISHING PAD MOUNTER, ANSON L 891.0 OPEN WOUND OF KNEE LEG (EXCEPT THIGH) AND ANKLE WITHOUT COMPLICATION 06/05/2013 LUIS ALFREDO POLISHING PAD MOUNTER, BRENNA R 891.0 OPEN WOUND OF KNEE LEG (EXCEPT THIGH) AND ANKLE WITHOUT COMPLICATION 06/05/2013 CARMEN GIBBS MD N 891.0 OPEN WOUND OF KNEE LEG (EXCEPT THIGH) AND ANKLE WITHOUT COMPLICATION 06/05/2013 EMIL ROLON DO K 891.0 OPEN WOUND OF KNEE LEG (EXCEPT THIGH) AND ANKLE WITHOUT COMPLICATION 06/05/2013 MICHELINE POLISHING PAD MOUNTER, RAQUEL R 891.0 OPEN WOUND OF KNEE LEG (EXCEPT THIGH) AND ANKLE WITHOUT COMPLICATION 06/05/2013 CARMEN GIBBS MD N 891.0 OPEN WOUND OF KNEE LEG (EXCEPT THIGH) AND ANKLE WITHOUT COMPLICATION 06/05/2013 LUIS ALFREDO YUN, BRENNA R 891.0 OPEN WOUND OF KNEE LEG (EXCEPT THIGH) AND ANKLE WITHOUT COMPLICATION 06/05/2013 MICHELINE POLISHING PAD MOUNTER, RAQUEL R 891.0 OPEN WOUND OF KNEE LEG (EXCEPT THIGH) AND ANKLE WITHOUT COMPLICATION 06/05/2013 CARMEN GIBBS MD N 891.0 OPEN WOUND OF KNEE LEG (EXCEPT THIGH) AND ANKLE WITHOUT COMPLICATION 06/05/2013 MADL POLISHING PAD MOUNTER, ANSON L 891.0 OPEN WOUND OF KNEE LEG (EXCEPT THIGH) AND ANKLE WITHOUT COMPLICATION 06/05/2013 MADL POLISHING PAD MOUNTER, ANSON L 891.0 OPEN WOUND OF KNEE LEG (EXCEPT THIGH) AND ANKLE WITHOUT COMPLICATION 06/05/2013 MICHELINE POLISHING PAD MOUNTER, RAQUEL R 891.0 OPEN WOUND OF KNEE [...] 493.92 ASTHMA WITH ACUTE EXACERBATION 09/03/2013 LOBATO POLISHING PAD MOUNTER, BRENNA R 493.92 ASTHMA WITH ACUTE EXACERBATION 09/03/2013 SHERI POLISHING PAD MOUNTER, ANSON L 493.92 ASTHMA WITH ACUTE EXACERBATION [...] 465.9 UPPER RESPIRATORY INFECTION 09/12/2013 LUIS ALFREDO POLISHING PAD MOUNTER, BRENNA R 465.9 UPPER RESPIRATORY INFECTION 09/12/2013 MADL POLISHING PAD MOUNTER, ANSON L 465.9 UPPER RESPIRATORY INFECTION 09/12/2013 [...] N 465.9 UPPER RESPIRATORY INFECTION 09/12/2013 SHERI POLISHING PAD MOUNTER, ANSON L 465.9 UPPER RESPIRATORY INFECTION 09/12/2013 MADL POLISHING PAD MOUNTER, ANSON L 465.9 UPPER RESPIRATORY INFECTION 09/12/2013 [...] ACUTE MUCOID LEFT EAR 09/16/2013 JOSE FRANCISCOL POLISHING PAD MOUNTER, ANSON L 381.02 OTITIS MEDIA ACUTE MUCOID [...] OTITIS MEDIA ACUTE MUCOID LEFT EAR 09/16/2013 MIHCELINE BAUMANN RAQUEL R 381.02 OTITIS MEDIA ACUTE [...] ASSOCIATED WITH FEMALE GENITAL ORGANS 09/21/2013 MADL POLISHING PAD MOUNTER, ANSON L 625.8 OTHER SPECIFIED SYMPTOMS ASSOCIATED [...] R 110.1 DERMATOPHYTOSIS OF NAIL 10/24/2013 CARMEN GIBSB MD N 110.1 DERMATOPHYTOSIS OF NAIL 10/24/2013 [...] IN JOINT INVOLVING SHOULDER REGION 03/30/2014 MADL POLISHING PAD MOUNTER, ANSON L 719.41 PAIN IN JOINT INVOLVING SHOULDER REGION 03/30/2014 CARMEN GIBBS MD N 719.41 PAIN IN JOINT INVOLVING SHOULDER REGION 03/30/2014 CARMEN GIBBS MD 719.41 PAIN IN JOINT INVOLVING SHOULDER REGION 03/30/2014 MADL POLISHING PAD MOUNTER, ANSON L 719.41 PAIN IN JOINT INVOLVING SHOULDER REGION 03/30/2014 EIML ROLON DO 719.41 PAIN IN JOINT INVOLVING SHOULDER REGION 04/27/2014 CARMEN GIBBS MD N 704.00 ALOPECIA UNSPECIFIED 04/27/2014 MADL POLISHING PAD MOUNTER, ANSON L 704.00 ALOPECIA UNSPECIFIED 04/27/2014 MADL POLISHING PAD MOUNTER, ANSON L 704.00 ALOPECIA UNSPECIFIED 04/27/2014 MICHELINE BAUMANN, RAQUEL R 704.00 ALOPECIA UNSPECIFIED 04/27/2014 ELLIOT MORENO DDS J 704.00 ALOPECIA UNSPECIFIED 04/27/2014 CARMEN GIBBS MD N 704.00 ALOPECIA UNSPECIFIED 04/27/2014 MADL POLISHING PAD MOUNTER, ANSON L 704.00 ALOPECIA UNSPECIFIED 04/27/2014 CARMEN GIBBS MD N 704.00 ALOPECIA UNSPECIFIED 04/27/2014 CARMEN GIBBS MD N 704.00 ALOPECIA UNSPECIFIED 04/27/2014 MADL POLISHING PAD MOUNTER, ANSON L 704.00 ALOPECIA UNSPECIFIED 04/27/2014 EMIL ROLON DO K 704.00 ALOPECIA UNSPECIFIED 05/10/2014 MADL POLISHING PAD MOUNTER, ANSON L 786.52 PAINFUL RESPIRATION 05/10/2014 MADL POLISHING PAD MOUNTER, ANSON L 786.52 PAINFUL RESPIRATION 05/10/2014 MICHELINE BAUMANN, RAQUEL R 786.52 PAINFUL RESPIRATION 05/10/2014 ELLIOT MORENO DDS J 786.52 PAINFUL RESPIRATION 05/10/2014 CARMEN GIBBS MD N 786.52 PAINFUL RESPIRATION 05/10/2014 MADL POLISHING PAD MOUNTER, ANSON L 786.52 PAINFUL RESPIRATION 05/10/2014 CARMEN GIBBS MD N 786.52 PAINFUL RESPIRATION 05/10/2014 CARMEN GIBBS MD N 786.52 PAINFUL RESPIRATION 05/10/2014 MADANSON Leblanc APRN L 786.52 PAINFUL RESPIRATION 05/10/2014 EMIL ROLON DO 786.52 PAINFUL RESPIRATION 05/25/2014 MICHELINE POLISHING PAD MOUNTER, RAQUEL R 461.9 SINUSITIS ACUTE 05/25/2014 MICHELINE POLISHING PAD MOUNTER, RAQUEL R 709.9 UNSPECIFIED DISORDER OF SKIN AND SUBCUTANEOUS TISSUE 05/25/2014 MICHELINE POLISHING PAD MOUNTER, RAQUEL R 784.0 HEADACHE 05/25/2014 WHITE DDS, [...] TOMAS MD Ot V74.8 05/28/2014 LAZARO HURTADO WIRELESS SALES CONSULTANT Ot 278.01 05/28/2014 LAZARO HURTADO WIRELESS SALES CONSULTANT Ot 401.9 05/28/2014 LAZARO HURTADO WIRELESS SALES CONSULTANT Ot 786.09 05/28/2014 LAZARO HURTADO WIRELESS SALES CONSULTANT Ot V85.42 05/31/2014 JOSH DDS, ELLIOT J [...] 381.81 DYSFUNCTION OF EUSTACHIAN TUBE 08/09/2014 SHERI POLISHING PAD MOUNTERANSON Christie L 381.81 DYSFUNCTION OF EUSTACHIAN TUBE 08/09/2014 ROLON SUDHIR GAMINGA K 381.81 DYSFUNCTION OF EUSTACHIAN TUBE 08/17/2014 CARMEN GIBBS MD N 782.0 DISTURBANCE OF SKIN SENSATION 08/17/2014 CARMEN GIBBS MD N 790.29 ABNORMAL GLUCOSE 08/17/2014 MADL POLISHING PAD MOUNTERLETICIA ChristieA L 782.0 DISTURBANCE OF SKIN SENSATION 08/17/2014 MADL POLISHING PAD MOUNTERLETICIA ChristieA L 790.29 ABNORMAL GLUCOSE 08/17/2014 ROLON DO EMIL K 782.0 DISTURBANCE OF SKIN SENSATION 08/17/2014 ROLON DO EMIL K 790.29 ABNORMAL GLUCOSE 08/28/2014 CARMEN GIBBS MD N 698.9 PRURITUS NOS 08/28/2014 MADBenji POLISHING PAD MOUNTER, ANSON L 698.9 PRURITUS NOS 08/28/2014 ROLON [...] TOMAS MD Ot V74.8 06/02/2015 LAZARO HURTADO WIRELESS SALES CONSULTANT Ot 278.01 06/02/2015 LAZARO HURTADO WIRELESS SALES CONSULTANT Ot 401.9 06/02/2015 LAZARO HURTADO WIRELESS SALES CONSULTANT Ot 786.09 06/02/2015 LAZARO HURTADO WIRELESS SALES CONSULTANT Ot V85.42 06/02/2015 DEE BAH MD Ot 723.0 06/02/2015 DEE BAH MD Ot 724.02 06/02/2015 ROCHELLE CANNON MD Ot M77.8 06/08/2015 ROCHELLE CANNON MD Ot M22.41 CHONDROMALACIA PATELLAE, RIGHT KNEE 06/08/2015 ROCHELLE CANNON MD Ot M23.221 DERANG OF POST HORN OF MEDIAL MENSC D/T 06/08/2015 ROCHELLE CANNON MD Ot 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 06/08/2015 ROCHELLE CANNON MD [...] TOMAS MD Ot V74.8 06/14/2015 LAZARO HURTADO W[employer]LESS SALES CONSULTANT Ot 278.01 06/14/2015 LAZARO HURTADO WIRELESS SALES CONSULTANT Ot 401.9 06/14/2015 LAZARO HURTADO WIRELESS SALES CONSULTANT Ot 786.09 06/14/2015 LAZARO HURTADO WIRELESS SALES CONSULTANT Ot V85.42 06/14/2015 [place], DEE Alston [...] MDNY L Ot V74.8 08/31/2015 LAZARO HURTADO WIRELESS SALES CONSULTANT Ot 278.01 08/31/2015 LAZARO HURTADO WIRELESS SALES CONSULTANT Ot 401.9 08/31/2015 LAZARO HURTADO WIRELESS SALES CONSULTANT Ot 786.09 08/31/2015 LAZARO HURTADO WIRELESS SALES CONSULTANT Ot V85.42 08/31/2015 DEE BAH MD Ot [...] ENCOUNTER FOR SCREENING FOR OTHER BACTER 09/01/2015 UYNIOR LYLES MD Ot R59.0 09/01/2015 YUNIOR LYLES [...] Z98.89 OTHER SPECIFIED POSTPROCEDURAL STATES 12/19/2015 GEORGES FNIN APRN Ot L98.9 DISORDER OF THE SKIN [...] MASS INDEX 40.0-44.9, ADULT 12/21/2015 RONY ALDANA POLISHING PAD MOUNTER Ot 571.8 CHRONIC LIVER DIS NEC 12/21/2015 TATA TOMAS MD Ot 724.70 DISORDER OF COCCYX NOS 12/21/2015 TATA TOMAS MD Ot V72.63 PRE-PROCEDURAL LABORATORY EXAMINATION 12/21/2015 TATA TOMAS MD Ot V74.8 SCREEN-BACTERIAL DIS NEC 12/21/2015 LAZARO HURTADO WIRELESS SALES CONSULTANT Ot 278.01 MORBID OBESITY 12/21/2015 LAZARO HURTADO WIRELESS SALES CONSULTANT Ot 401.9 HYPERTENSION NOS 12/21/2015 LAZARO HURTADO WIRELESS SALES CONSULTANT Ot 786.09 RESPIRATORY ABNORM NEC 12/21/2015 LAZARO HURTADO WIRELESS SALES CONSULTANT Ot V85.42 BODY MASS INDEX 45.0-49.9, ADULT [...] [place], ROCHELLE Salgado Ot 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 05/31/2016 ROCHELLE CANNON MD [...] 06/14/2016 ROCHELLE CANNON MD Ot 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 06/17/2016 GEORGES FNIN APRN Ot L98.9 DISORDER OF THE SKIN [...] MASS INDEX 40.0-44.9, ADULT 06/24/2016 RONY ALDANA POLISHING PAD MOUNTER Ot 571.8 CHRONIC LIVER DIS NEC 06/24/2016 TATA TOMAS MD Ot 724.70 DISORDER OF COCCYX NOS 06/24/2016 TATA TOMAS MD, Ot V72.63 PRE-PROCEDURAL LABORATORY EXAMINATION 06/24/2016 TATA TOMAS MD, Ot V74.8 SCREEN-BACTERIAL DIS NEC 06/24/2016 LAZARO HURTADO W[employer]LESS SALES CONSULTANT Ot 278.01 MORBID OBESITY 06/24/2016 LAZARO HURTADO WIRELESS SALES CONSULTANT Ot 401.9 HYPERTENSION NOS 06/24/2016 LAZARO HURTADO WIRELESS SALES CONSULTANT Ot 786.09 RESPIRATORY ABNORM NEC 06/24/2016 LAZARO [...] J06.9 ACUTE UPPER RESPIRATORY INFECTION, UNSPE 06/24/2016 [place], ADRIÁN S Ot R05 COUGH 06/25/2016 [...] SCREEN-BACTERIAL DIS NEC 08/05/2016 LAZARO HURTADO L W[employer]LESS SALES CONSULTANT Ot 278.01 MORBID OBESITY 08/05/2016 BAILAZARO HAHN L WIRELESS SALES CONSULTANT Ot 401.9 HYPERTENSION NOS 08/05/2016 BAIMA LAZARO L WIRELESS SALES CONSULTANT Ot 786.09 RESPIRATORY ABNORM NEC 08/05/2016 LAZARO HURTADO WIRELESS SALES CONSULTANT Ot V85.42 BODY MASS INDEX 45.0-49.9, ADULT [...] MASS AND LUMP, NECK 10/11/2016 DAVID, GEOVANI WIRELESS SALES CONSULTANT Ot R05 COUGH 10/11/2016 DAVID, GEOVANI WIRELESS SALES CONSULTANT Ot R10.12 LEFT UPPER QUADRANT PAIN 10/11/2016 DAVID, GEOVANI WIRELESS SALES CONSULTANT Ot Z87.19 PERSONAL HISTORY OF OTHER DISEASES OF 10/12/2016 DAVID, GEOVANI WIRELESS SALES CONSULTANT Ot R05 COUGH 10/12/2016 DAVID, GEOVANI WIRELESS SALES CONSULTANT Ot R10.12 LEFT UPPER QUADRANT PAIN 10/12/2016 DAVID, GEOVANI WIRELESS SALES CONSULTANT Ot Z87.19 PERSONAL HISTORY OF OTHER DISEASES [...] MASS INDEX 40.0-44.9, ADULT 10/26/2016 RONY ALDANA POLISHING PAD MOUNTER Ot 571.8 CHRONIC LIVER DIS NEC 10/26/2016 TATA TOMAS MD Ot 724.70 DISORDER OF COCCYX NOS 10/26/2016 TATA TOMAS MD Ot V72.63 PRE-PROCEDURAL LABORATORY EXAMINATION 10/26/2016 TATA TOMAS MD Ot V74.8 SCREEN-BACTERIAL DIS NEC 10/26/2016 LAZARO HURTADO WIRELESS SALES CONSULTANT Ot 278.01 MORBID OBESITY 10/26/2016 LAZARO HURTADO WIRELESS SALES CONSULTANT Ot 401.9 HYPERTENSION NOS 10/26/2016 LAZARO HURTADO WIRELESS SALES CONSULTANT Ot 786.09 RESPIRATORY ABNORM NEC 10/26/2016 LAZARO HURTADO WIRELESS SALES CONSULTANT Ot V85.42 BODY MASS INDEX 45.0-49.9, ADULT [...] MD Ot J45.909 UNSPECIFIED ASTHMA, UNCOMPLICATED 12/04/2016 ADRÁIN PARKS MD Ot J02.9 ACUTE PHARYNGITIS, UNSPECIFIED [...] ACQUIRED ABSENCE OF OTHER SPECIFIED PART 01/31/2017 SHANAKR DO YAN Vickey Ot Z90.710 ACQUIRED ABSENCE OF BOTH CERVIX AND UTER 01/31/2017 SHANKAR DO YAN Vickey Ot Z90.89 ACQUIRED ABSENCE OF OTHER ORGANS 02/01/2017 SHANKAR DO YAN Vickey Ot F32.9 MAJOR DEPRESSIVE DISORDER, SINGLE EPISOD 02/01/2017 SHANKAR GAMING YAN Hurd Ot F41.9 ANXIETY DISORDER, UNSPECIFIED 02/01/2017 HSANKAR GAMING YAN Hurd Ot G43.909 MIGRAINE, UNSP, [...] OTHER SPECIFIED DISORDERS OF KIDNEY AND 03/14/2017 UYKI MARCH MD Ot R10.10 UPPER ABDOMINAL PAIN, [...] 03/15/2017 YUKI MARCH MD Ot 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 03/18/2017 YUKI MARCH MD Ot F41.9 ANXIETY DISORDER, UNSPECIFIED 03/18/2017 YUKI MARCH MD Ot G43.909 MIGRAINE, UNSP, NOT INTRACTABLE, WITHOUT 03/18/2017 YUKI MARCH MD Ot N28.89 OTHER SPECIFIED DISORDERS OF KIDNEY AND 03/18/2017 YUKI MARCH MD Ot R10.10 UPPER ABDOMINAL PAIN, UNSPECIFIED 03/18/2017 YUKI MARCH MD Ot R10.13 EPIGASTRIC PAIN 03/18/2017 YUKI MARCH MD Ot 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 03/20/2017 YUKI MARCH MD Ot F41.9 ANXIETY DISORDER, UNSPECIFIED 03/20/2017 YUKI MARCH MD Ot G43.909 MIGRAINE, UNSP, NOT INTRACTABLE, WITHOUT 03/20/2017 YUKI MARCH MD Ot N28.89 OTHER SPECIFIED DISORDERS OF KIDNEY AND 03/20/2017 YUKI MARCH MD Ot R10.10 UPPER ABDOMINAL PAIN, UNSPECIFIED 03/20/2017 YUKI MARCH MD Ot R10.13 EPIGASTRIC PAIN 03/20/2017 YUKI MARCH MD Ot 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 04/13/2017 GEORGES FINN APRN Ot F32.9 MAJOR DEPRESSIVE DISORDER, SINGLE EPISOD 04/13/2017 GEORGES FINN APRN Ot F41.9 ANXIETY DISORDER, UNSPECIFIED 04/13/2017 GOERGES FINN APRN Ot G43.909 MIGRAINE, UNSP, NOT [...] V74.8 SCREEN-BACTERIAL DIS NEC 05/30/2017 LAZARO HURTADO WIRELESS SALES CONSULTANT Ot 278.01 MORBID OBESITY 05/30/2017 BRYANTLAZARO Benji WIRELESS SALES CONSULTANT Ot 401.9 HYPERTENSION NOS 05/30/2017 BRYANTLAZARO Benji WIRELESS SALES CONSULTANT Ot 786.09 RESPIRATORY ABNORM NEC 05/30/2017 LAZARO HURTADO WIRELESS SALES CONSULTANT Ot V85.42 BODY MASS INDEX 45.0-49.9, ADULT [...] ACQUIRED ABSENCE OF OTHER SPECIFIED PART 05/30/2017 GEOGRES FINN APRN Ot Z90.5 ACQUIRED ABSENCE OF [...] Ot Z86.010 PERSONAL HISTORY OF COLONIC POLYPS 06/29/2017 YUKI MARCH MD, Ot F32.9 MAJOR DEPRESSIVE DISORDER, SINGLE EPISOD 06/29/2017 YUKI MARCH MD, Ot F41.9 ANXIETY DISORDER, UNSPECIFIED 06/29/2017 YUKI MARCH MD, Ot G43.909 MIGRAINE, UNSP, NOT INTRACTABLE, WITHOUT 06/29/2017 YUKI MARCH MD Ot J06.9 ACUTE UPPER RESPIRATORY INFECTION, UNSPE 06/29/2017 YUKI MARCH MD, Ot J45.909 UNSPECIFIED ASTHMA, UNCOMPLICATED 06/29/2017 YUKI MARCH MD Ot R10.10 UPPER ABDOMINAL PAIN, UNSPECIFIED 06/29/2017 YUKI MARCH MD, Ot R10.13 EPIGASTRIC PAIN 06/29/2017 YUKI MARCH MD, Ot Z85.528 PERSONAL HISTORY OF OTHER MALIGNANT NEOP 06/29/2017 YUKI MARCH MD Ot Z87.19 PERSONAL HISTORY OF OTHER DISEASES OF TH 06/29/2017 YUKI MARCH MD, Ot Z90.5 ACQUIRED ABSENCE OF KIDNEY 06/29/2017 YUKI MARCH MD, Ot Z90.710 ACQUIRED ABSENCE OF BOTH CERVIX AND UTER 06/29/2017 YUKI MARCH MD, Ot Z90.89 ACQUIRED ABSENCE OF OTHER ORGANS 07/03/2017 YUNIOR LYLES MD, Ot F32.9 MAJOR DEPRESSIVE DISORDER, SINGLE EPISOD 07/03/2017 YUNIOR LYLES MD, Ot F41.9 ANXIETY DISORDER, UNSPECIFIED 07/03/2017 YUNIOR LYLES MD, Ot G47.61 PERIODIC LIMB MOVEMENT DISORDER 07/03/2017 YUNIOR LYLES MD, Ot K64.1 SECOND DEGREE HEMORRHOIDS 07/03/2017 YUNIOR LYLES MD Ot Z79.899 OTHER NURSING HOME (CURRENT) DRUG THERAPY 07/03/2017 YUNIOR LYLES MD, Ot Z85.528 PERSONAL HISTORY OF OTHER MALIGNANT NEOP 07/03/2017 YUNIOR LYLES MD, Ot Z86.010 PERSONAL HISTORY OF COLONIC POLYPS 07/03/2017 YUNIOR LYLES MD Ot Z88.5 ALLERGY STATUS TO NARCOTIC AGENT STATUS 07/03/2017 YUNIOR LYLES MD Ot Z90.5 ACQUIRED ABSENCE OF KIDNEY 07/04/2017 YUNIRO LYLES MD, Ot F32.9 MAJOR DEPRESSIVE DISORDER, SINGLE EPISOD 07/04/2017 YUNIOR LYLES MD Ot F41.9 ANXIETY DISORDER, UNSPECIFIED 07/04/2017 YUNIOR LYLES MD Ot G47.61 PERIODIC LIMB MOVEMENT DISORDER 07/04/2017 YUNIOR LYLES MD Ot K64.1 SECOND DEGREE HEMORRHOIDS 07/04/2017 YUNIOR LYLES MD Ot 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 07/04/2017 YUNIOR LYLES MD Ot Z85.528 PERSONAL HISTORY OF OTHER MALIGNANT NEOP 07/04/2017 YUNIOR LYLES MD Ot Z86.010 PERSONAL HISTORY OF COLONIC POLYPS 07/04/2017 YUNIOR LYLES MD Ot Z88.5 ALLERGY STATUS TO NARCOTIC AGENT STATUS 07/04/2017 YUNIOR LYLES MD Ot Z90.5 ACQUIRED ABSENCE OF KIDNEY 07/09/2017 YUNIOR LYLES MD Ot F32.9 MAJOR DEPRESSIVE DISORDER, SINGLE EPISOD 07/09/2017 YUNIOR LYLES MD Ot F41.9 ANXIETY DISORDER, UNSPECIFIED 07/09/2017 YUNIOR LYLES MD Ot G47.61 PERIODIC LIMB MOVEMENT DISORDER 07/09/2017 YUNIOR LYLES MD Ot K64.1 SECOND DEGREE HEMORRHOIDS 07/09/2017 YUNIOR LYLES MD Ot Z79.899 OTHER NURSING HOME (CURRENT) DRUG THERAPY 07/09/2017 YUNIOR LYLES MD Ot Z85.528 PERSONAL HISTORY OF OTHER MALIGNANT NEOP 07/09/2017 YUNIOR LYLES MD Ot Z86.010 PERSONAL HISTORY OF COLONIC POLYPS 07/09/2017 YUNIOR LYLES MD Ot Z88.5 ALLERGY STATUS TO NARCOTIC AGENT STATUS 07/09/2017 YUNIOR LYLES MD Ot Z90.5 ACQUIRED ABSENCE OF KIDNEY 07/23/2017 YUKI MARCH MD Ot F32.9 MAJOR DEPRESSIVE DISORDER, SINGLE EPISOD 07/23/2017 YUKI MARCH MD Ot F41.9 ANXIETY DISORDER, UNSPECIFIED 07/23/2017 YUKI MARCH MD Ot J45.909 UNSPECIFIED ASTHMA, UNCOMPLICATED 07/23/2017 YUKI MARCH MD Ot L03.115 CELLULITIS OF RIGHT LOWER LIMB 07/23/2017 YUKI MARCH MD Ot R10.12 LEFT UPPER QUADRANT PAIN 07/23/2017 YUKI MARCH MD Ot R10.9 UNSPECIFIED ABDOMINAL PAIN 07/23/2017 YUKI MARCH MD Ot Z82.49 FAMILY HX OF ISCHEM HEART DIS AND OTH DI 07/23/2017 YUKI MARCH MD, Ot Z85.828 PERSONAL HISTORY OF OTHER MALIGNANT NEOP 07/23/2017 YUKI MARCH MD, Ot Z86.010 PERSONAL HISTORY OF COLONIC POLYPS 07/23/2017 YUKI MARCH MD, Ot Z86.19 PERSONAL HISTORY OF OTHER INFECTIOUS AND 07/23/2017 YUKI MARCH MD Ot Z87.19 PERSONAL HISTORY OF OTHER DISEASES OF TH 07/23/2017 YUKI MARCH MD, Ot Z87.440 PERSONAL HISTORY OF URINARY (TRACT) INFE 07/23/2017 YUKI MARCH MD, Ot Z87.891 PERSONAL HISTORY OF NICOTINE DEPENDENCE 07/23/2017 YUKI MARCH MD, Ot Z88.0 ALLERGY STATUS TO PENICILLIN 07/23/2017 YUKI MARCH MD, Ot Z88.5 ALLERGY STATUS TO NARCOTIC AGENT STATUS 07/23/2017 YUKI MARCH MD Ot Z90.49 ACQUIRED ABSENCE OF OTHER SPECIFIED PART 07/23/2017 YUKI MARCH MD, Ot Z90.5 ACQUIRED ABSENCE OF KIDNEY 07/23/2017 YUKI MARCH MD, Ot Z90.710 ACQUIRED ABSENCE OF BOTH CERVIX AND UTER 07/23/2017 YUKI MARCH MD Ot Z90.89 ACQUIRED ABSENCE OF OTHER ORGANS 07/24/2017 YUKI MARCH MD Ot F32.9 MAJOR DEPRESSIVE DISORDER, SINGLE EPISOD 07/24/2017 YUKI MARCH MD Ot F41.9 ANXIETY DISORDER, UNSPECIFIED 07/24/2017 YUKI MARCH MD Ot J45.909 UNSPECIFIED ASTHMA, UNCOMPLICATED 07/24/2017 YUKI MARHC MD Ot L03.115 CELLULITIS OF RIGHT LOWER LIMB 07/24/2017 YUKI MARCH MD Ot R10.12 LEFT UPPER QUADRANT PAIN 07/24/2017 YUKI MARCH MD Ot R10.9 UNSPECIFIED ABDOMINAL PAIN 07/24/2017 YUKI MARCH MD Ot Z82.49 FAMILY HX OF ISCHEM HEART DIS AND OTH DI 07/24/2017 YUKI MARCH MD Ot Z85.828 PERSONAL HISTORY OF OTHER MALIGNANT NEOP 07/24/2017 YUKI MARCH MD, Ot Z86.010 PERSONAL HISTORY OF COLONIC POLYPS 07/24/2017 YUKI MARCH MD Ot Z86.19 PERSONAL HISTORY OF OTHER INFECTIOUS AND 07/24/2017 YUKI MARCH MD, Ot Z87.19 PERSONAL HISTORY OF OTHER DISEASES OF TH 07/24/2017 YUKI MARCH MD Ot Z87.440 PERSONAL HISTORY OF URINARY (TRACT) INFE 07/24/2017 YUKI MARCH MD Ot Z87.891 PERSONAL HISTORY OF NICOTINE DEPENDENCE 07/24/2017 YUKI MARCH MD Ot Z88.0 ALLERGY STATUS TO PENICILLIN 07/24/2017 YUKI MARCH MD, Ot Z88.5 ALLERGY STATUS TO NARCOTIC AGENT STATUS 07/24/2017 YUKI MARCH MD, Ot Z90.49 ACQUIRED ABSENCE OF OTHER SPECIFIED PART 07/24/2017 YUKI MARCH MD Ot Z90.5 ACQUIRED ABSENCE OF KIDNEY 07/24/2017 YUKI MARCH MD Ot Z90.710 ACQUIRED ABSENCE OF BOTH CERVIX AND UTER 07/24/2017 YUKI MARCH MD Ot Z90.89 ACQUIRED ABSENCE OF OTHER ORGANS Procedures Code Description Performed By Performed On thelma Rochelle Jules 03/28/2010 84614 PAP SMEAR 08/02/2011 34085 EXCISION BENIGN LESION 1.1- 2 cm (specify location in [facility] descriiption) 05/12/2012 S0630 SUTURE REMOVAL 05/19/2012 50769 SKIN TISSUE PROCEDURE 06/05/2013 78271 US LIVER ULTRASOUND 06/05/2013 03346 OXIMETRY 09/12/2013 30345 OXIMETRY 09/16/2013 85132 THERAPUTIC INJ SQ/IM 09/16/2013 J2930 SOLUMEDROL INJ 09/16/2013 27252 OXIMETRY 09/17/2013 68885 XRAY ELBOW R 2 VIEWS 09/23/2013 40578 CULTURE UROGENITAL 09/24/2013 J2550 PHENERGAN INJECTION UP TO 50 MG 10/28/2013 51292 THERAPUTIC INJ SQ/IM 10/28/2013 33940 LIVER PANEL (LFT) 10/28/2013 74386 LIPASE 10/28/2013 12393 CBC 10/28/2013 48635 ROUTINE VENIPUNCTURE 01/21/2014 03526 UA W/ CULTURE IF INDICATED 01/21/2014 73475 CBC 01/22/2014 3125385 GFR CALC (RESULT ONLY) 01/22/2014 96745 CMP 01/22/2014 56135 [facility] [address] 04/27/2014 25921 TSH 04/27/2014 42713 CBC 04/27/2014 86089 ROUTINE VENIPUNCTURE 04/27/2014 70271 ROUTINE VENIPUNCTURE 05/10/2014 33052 XRAY RIBS RIGHT UNILATERAL 2 OR MORE VIEWS 05/10/2014 97621 UA W/ CULTURE IF INDICATED 05/10/2014 57949 CBC 05/10/20148876899 GFR CALC (RESULT ONLY) 05/10/2014 92888 [facility] [address] 05/10/2014 02367 AMYLASE 05/10/2014 03955 LIPASE 05/10/[address] ABDOMEN & PELVIS W/ & W/ O CONTRAST 05/17/2014 63020 XRAY CERVICAL SPINE, 2 OR 3 VIEWS 09/06/2014 64428 XRAY THORACIC SPINE 2 VIEWS 09/06/2014 86776 XRAY LUMBAR SPINE 2 OR 3 VIEWS [...] identification in genital specimen by aerobe culture [id number] NRG FREE TEXT EXTERNAL 2 PLUS NORMAL [...] Complete urinalysis with reflex to culture YES [facility] [place] Comprehensive metabolic panel - 05/23/16 11:17 Serum [...] - 05/23/16 11:17 URINE CULTURE RESULTS <10,000/ML [facility] [place] Streptococcus pyogenes antigen detection - 06/24/16 10:33 Streptococcus pyogenes antigen detection NEGATIVE NEGATIVE Bacterial throat culture - 06/24/16 10:33 Bacterial throat culture NBS [facility] [place] Complete blood count (CBC) with automated white [...] A AND B ANTIGENS BY IA NRG Complete urinalysis with reflex to culture - 07/22/17 22:30 Urine color determination YELLOW NRG Urine clarity [...] culture YES NRG Bacterial urine culture - 07/22/17 22:30 URINE CULTURE RESULTS <10,000/ML NRG Complete blood count (CBC) with automated white blood cell (WBC) differential - 07/22/17 22:35 Blood leukocytes automated count (number/volume) 10.3 10*3/uL 4.3-11.0 Blood erythrocytes automated count (number/volume) 4.08 10*6/uL 4.35-5.85 Venous blood hemoglobin measurement (mass/volume) 11.9 g/dL 11.5-16.0 Blood hematocrit (volume fraction) 35 % 35-52 Automated erythrocyte mean corpuscular volume 85 [foz_us] 80-99 Automated erythrocyte mean corpuscular hemoglobin (mass per erythrocyte) 29 pg 25-34 Automated erythrocyte mean corpuscular hemoglobin concentration measurement ( mass/volume) 34 g/dL 32-36 Automated erythrocyte distribution width ratio 13.5 % 10.0-14.5 Automated blood platelet count (count/volume) 295 10*3/uL 130-400 Automated blood platelet mean volume measurement 9.3 [foz_us] 7.4-10.4 Automated blood neutrophils/100 leukocytes 58 % 42-75 Automated blood lymphocytes/100 leukocytes 34 % 12-44 Blood monocytes/100 leukocytes 5 % 0-12 Automated blood eosinophils/100 leukocytes 3 % 0-10 Automated blood basophils/100 leukocytes 0 % 0-10 Blood neutrophils automated count (number/volume) 6.0 10*3 1.8-7.8 Blood lymphocytes automated count (number/volume) 3.5 10*3 1.0-4.0 Blood monocytes automated count (number/volume) 0.5 10*3 0.0-1.0 Automated eosinophil count 0.3 10*3/uL 0.0-0.3 Automated blood basophil count (count/volume) 0.0 10*3/uL 0.0-0.1 Fibrin D-dimer FEU measurement in platelet poor plasma (mass/volume) - 22:35 Fibrin D-dimer FEU measurement in platelet poor plasma (mass/volume) 0.41 ug/mL 0.00-0.49 Comprehensive metabolic panel - 07/22/17 22:35 Serum or plasma sodium measurement (moles/volume) 139 mmol/L 135-145 Serum or plasma potassium measurement (moles/volume) 3.6 mmol/L 3.6-5.0 Serum or plasma chloride measurement (moles/volume) 105 mmol/L 98-107 Carbon dioxide 21 mmol/L 21-32 Serum or plasma anion gap determination (moles/volume) 13 mmol/L 5-14 Serum or plasma urea nitrogen measurement (mass/volume) 16 mg/dL 7-18 Serum or plasma creatinine measurement (mass/volume) 0.83 mg/dL 0.60-1.30 Serum or plasma urea nitrogen/creatinine mass ratio 19 NRG Serum or plasma creatinine measurement with calculation of estimated glomerular filtration rate > NRG Serum or plasma glucose measurement (mass/volume) 84 mg/dL 70-105 Serum or plasma calcium measurement (mass/volume) 9.5 mg/dL 8.5-10.1 Serum or plasma total bilirubin measurement (mass/volume) 0.2 mg/dL 0.1-1.0 Serum or plasma alkaline phosphatase measurement (enzymatic activity/volume) 54 U/L 40-136 Serum or plasma aspartate aminotransferase measurement (enzymatic activity/ volume) 24 U/L 5-34 Serum or plasma alanine aminotransferase measurement (enzymatic activity/volume ) 17 U/L 0-55 Serum or plasma protein measurement (mass/volume) 7.2 g/dL 6.4-8.2 Serum or plasma albumin measurement (mass/volume) 3.8 g/dL 3.2-4.5 Serum or plasma C reactive protein measurement (mass/volume) - 07/22/17 22:35 Serum or plasma C reactive protein measurement (mass/volume) 0.94 mg /dL 0.00-0.50 Serum or plasma amylase measurement (enzymatic activity/volume) - 07/22/17 22: 35 Serum or plasma amylase measurement (enzymatic activity/volume) 57 U /L 25-125 Lipase - 07/22/17 22:35 Lipase 44 U/L 8-78 Encounters ACCT No. Visit Date/Time Discharge Status Pt. Type Provider Facility Loc./Unit Complaint [id number] 09/06/2014 08:47:00 09/06/2014 23:59:59 CLS Outpatient GONZALES EMIL GAMING Vickey [id number] 09/06/2014 08:47:00 09/06/2014 23:59:59 CLS Outpatient ANSON WADE APRN [id number] 08/17/2014 09:19:00 08/17/2014 23:59:59 CLS Outpatient CARMEN GIBBS MD [id number] 07/21/2014 07:46:00 07/21/2014 23:59:59 CLS Outpatient CARMEN GIBBS MD [id number] 07/05/2014 10:18:00 07/05/2014 23:59:59 CLS Outpatient ANSON WADE APRN [id number] 06/03/2014 15:45:00 06/03/2014 23:59:59 CLS Outpatient CARMEN GIBBS MD [id number] 05/31/2014 12:15:00 05/31/2014 23:59:59 CLS Outpatient ELLIOT MORENO DDS [id number] 05/25/2014 10:56:00 05/25/2014 23:59:59 CLS Outpatient RAQUEL TOBIAS APRN [id number] 05/17/2014 10:52:00 05/17/2014 23:59:59 CLS Outpatient ANSON WADE APRN Benji [id number] 05/10/2014 09:54:00 05/10/2014 23:59:59 CLS Outpatient ANSON WADE APRN L [id number] 04/27/2014 13:25:00 04/27/2014 23:59:59 CLS Outpatient CARMEN GIBBS MD [id number] 03/30/2014 15:35:00 03/30/2014 23:59:59 CLS Outpatient MALACHI TOBIAS APRNINA R [id number] 02/24/2014 14:34:00 02/24/2014 23:59:59 CLS Outpatient EMERY LOBATO APRNKAR Dean [id number] 02/05/2014 15:30:00 02/05/2014 23:59:59 CLS Outpatient CARMEN GIBBS MD [id number] 01/21/2014 15:35:00 01/21/2014 23:59:59 CLS Outpatient EMIL ROLON DO [id number] 01/13/2014 00:00:00 01/13/2014 23:59:59 CLS Outpatient MALACHI TOBIAS APRNINA R [id number] 12/15/2013 14:31:00 12/15/2013 23:59:59 CLS Outpatient CARMEN GIBBS MD [id number] 11/03/2013 09:45:00 11/03/2013 23:59:59 CLS Outpatient ANSON WADE APRN Benji [id number] 10/28/2013 15:00:00 10/28/2013 23:59:59 CLS Outpatient EMERY LOBATO APRNRICIA R [id number] 10/28/2013 15:00:00 10/28/2013 23:59:59 CLS Outpatient EMERY LOBATO APRNRICIA R [id number] 09/28/2013 08:54:00 09/28/2013 23:59:59 CLS Outpatient OSMAN ALVAREZ APRN [id number] 09/23/2013 10:48:00 09/23/2013 23:59:59 CLS Outpatient EMIL ROLON DO [id number] 09/23/2013 10:48:00 09/23/2013 23:59:59 CLS Outpatient EMIL ROLON DO [id number] 09/17/2013 14:15:00 09/17/2013 23:59:59 CLS Outpatient EMIL ROLON DO Vickey [id number] 09/16/2013 14:57:00 09/16/2013 23:59:59 CLS Outpatient EMIL ROLON DO Vickey [id number] 09/16/2013 14:57:00 09/16/2013 23:59:59 CLS Outpatient EMIL ROLON DO Vickey [id number] 09/12/2013 13:04:00 09/12/2013 23:59:59 CLS Outpatient KIM BAUMANNOSMAN Juan [id number] 09/03/2013 11:29:00 09/03/2013 23:59:59 CLS Outpatient CARMEN GIBBS MD [id number] 07/01/2013 08:59:00 07/01/2013 23:59:59 CLS Outpatient CARMEN GIBBS MD [id number] 06/05/2013 14:44:00 06/05/2013 23:59:59 CLS Outpatient EMIL ROLON DO [id number] 06/02/2013 12:44:00 06/02/2013 23:59:59 CLS Outpatient RAQUEL LOPEZ DDS [id number] 05/29/2013 15:47:00 05/29/2013 23:59:59 CLS Outpatient CARMEN GIBBS MD [id number] 05/27/2013 09:28:00 05/27/2013 23:59:59 CLS Outpatient CARMEN GIBBS MD [id number] 05/12/2013 15:16:00 05/12/2013 23:59:59 CLS Outpatient ELLY DOUGLAS MD [id number] 08/20/2012 15:44:00 08/20/2012 23:59:59 CLS Outpatient GONZALES GAMINGEMIL [id number] 07/07/2012 11:21:00 07/07/2012 23:59:59 CLS Outpatient BRENNA LOBATO APRN [id number] 07/02/2012 09:18:00 07/02/2012 23:59:59 CLS Outpatient [id number] 05/20/2012 10:05:00 05/20/2012 23:59:59 CLS Outpatient REGINO BOYD DDS [id number] 04/10/2012 08:55:00 04/10/2012 23:59:59 CLS Outpatient GONZALES GAMING EMIL Hurd [id number] 07/22/2017 21:10:00 07/23/2017 02:12:00 DIS Emergency YUKI MARCH MD [facility] ER STOMACH PAIN [id number] 07/03/2017 08:18:00 07/03/2017 12:40:00 DIS Outpatient YUNIOR LYLES MD [facility] ENDO HX POLYPS [id number] 06/29/2017 18:40:00 06/29/2017 21:31:00 DIS Emergency YUKI MARCH MD [facility] ER DARK URINE,STOMACH PAIN, THROWING UP,PANCREATITIS [id number] 06/28/2017 10:00:00 06/28/2017 10:11:00 DIS Outpatient YUNIOR LYLES MD [facility] PREOP COLONOSCOPY [id number] 05/30/2017 13:43:00 05/30/2017 15:03:00 DIS Emergency GEORGES FINN APRN [facility] ER CANNOT URINATE [id number] 04/30/2017 01:09:00 04/30/2017 03:16:00 DIS Emergency YAN CHAPARRO DO K [facility] ER LOWER ABD PAIN [id number] 04/17/2017 20:45:00 04/18/2017 01:11:00 DIS Emergency KIARA MORRISON [facility] ER ABDOMINAL PAIN,KIDNEY SURGERY ON 04/10 [id number] 04/13/2017 16:02:00 04/13/2017 18:36:00 DIS Emergency GEORGES FINN POLISHING PAD MOUNTER [facility] ER NO BOWEL MOVEMENT, KIDNEY SURGERY ON 04/10,RASH [id number] 03/14/2017 00:17:00 03/14/2017 06:22:00 DIS Emergency YUKI MARCH MD [facility] ER ABD PAIN [id number] 03/07/2017 08:45:00 03/07/2017 12:32:00 DIS Emergency IZABELA RENDON MD [facility] ER ABD PAIN [id number] 02/21/2017 06:02:00 02/21/2017 07:06:00 DIS Emergency MAKAYLA HAWKINS MD [facility] ER GLENNA ON NECK-HOT,MEJIA, HURTS TO SWALLOW [id number] 01/30/2017 23:32:00 01/31/2017 00:22:00 DIS Emergency YAN CHAPARRO DO [facility] ER POSS ALLERGIC RXN [id number] 12/01/2016 16:29:00 12/01/2016 19:04:00 DIS Emergency ADRIÁN PARKS MD [facility] ER FEVER/THROAT PAIN [id number] 10/26/2016 12:59:00 10/26/2016 14:50:00 DIS Emergency KIARA MORRISON [facility] ER VAGINAL DISCOMFORT [id number] 10/11/2016 15:52:00 10/11/2016 18:28:00 DIS Emergency GEOVANI HERNANDEZP [facility] ER SOA,ABD PAIN WHEN BREATHING, NUMBNESS IN ARMS [id number] 08/28/2016 08:49:00 08/28/2016 23:59:59 CLS Outpatient CARMEN GIBBS MD [facility] RAD NECK MASS [id number] 08/16/2016 12:45:00 08/16/2016 23:59:59 CLS Preadmit CARMEN GIBBS MD [facility] RAD HEMOPLYSIS,NECK MASS [id number] 08/16/2016 12:21:00 08/16/2016 23:59:59 CLS Outpatient CARMEN GIBBS MD [facility] RAD HEMOPLYSIS,NECK MASS [id number] 08/05/2016 10:59:00 08/05/2016 14:43:00 DIS Emergency KIARA MORRISON [facility] ER ABD PAIN TO BACK [id number] 06/24/2016 09:45:00 06/24/2016 11:04:00 DIS Emergency ADRIÁN PARKS MD [facility] ER SORE THROAT/COUGH/GREEN SPUTUM/DIZZY [id number] 05/30/2016 06:46:00 05/30/2016 10:08:00 DIS Outpatient ROCHELLE CANNON MD [facility] SDC RIGHT KNEE TORM MEDIAL MENISCUS [id number] 05/23/2016 10:59:00 05/23/2016 12:12:00 DIS Emergency GEORGES FINN POLISHING PAD MOUNTER [facility] ER FATIGUE [id number] 05/23/2016 09:58:00 05/23/2016 10:43:00 DIS Outpatient ROCHELLE CANNON MD [facility] PREOP RIGHT KNEE TORN MEDIAL MENISCUS [id number] 05/02/2016 15:02:00 05/02/2016 23:59:59 CLS Outpatient ROCHELLE CANNON MD [facility] RAD [id number] 03/05/2016 16:10:00 03/05/2016 19:42:00 DIS Emergency YUKI MARHC MD [facility] ER VAGINAL BLEEDING [id number] 12/21/2015 10:36:00 12/21/2015 14:35:00 DIS Inpatient CARMEN GIBBS MD [facility] 4TH CELLULITIS [id number] 12/19/2015 11:50:00 12/19/2015 14:29:00 DIS Emergency GEORGES FINN POLISHING PAD MOUNTER [facility] ER RIGHT LEG PAIN [id number] 12/18/2015 12:43:00 12/18/2015 16:00:00 DIS Emergency KIARA MORRISON [facility] ER R LEG KNOT POST SURGERY [id number] 12/12/2015 09:12:00 12/12/2015 23:59:59 CLS Outpatient ROCHELLE CANNON MD [facility] RAD DVT [id number] 11/24/2015 13:16:00 11/24/2015 23:59:59 CLS Outpatient ROCHELLE CANNON MD [facility] RAD MEDIAL MENISCUS TEAR [id number] 09/06/2015 07:15:00 09/06/2015 13:25:00 DIS Outpatient YUNIOR LYLES MD [facility] SDC LYMPHADEROPATHY [id number] 08/31/2015 11:25:00 08/31/2015 11:53:00 DIS Outpatient YUNIOR LYLES MD [facility] PREOP LIMP NODE [id number] 06/22/2015 10:51:00 06/22/2015 23:59:59 CLS Preadmit CARMEN GIBBS MD [facility] REHAB [id number] 06/08/2015 06:16:00 06/08/2015 11:35:00 DIS Outpatient ROCHELLE CANNON MD [facility] SDC RIGHT KNEE TORN MEDIAL MENISCUS [id number] 06/02/2015 10:22:00 06/02/2015 23:59:59 CLS Outpatient CARMEN GIBBS MD [facility] LAB HLP [id number] 06/02/2015 10:13:00 06/02/2015 23:59:59 CLS Outpatient ROCHELLE CANNON MD [facility] PREOP RIGHT KNEE TORN MEDIAL MENISCUS [id number] 05/19/2015 08:58:00 05/19/2015 23:59:59 CLS Outpatient ROCHELLE CANNON MD [facility] RAD QUADRICEPT TENDONITIS [id number] 01/12/2015 14:32:00 01/12/2015 23:59:59 CLS Outpatient DEE BAH MD [facility] RAD CERVICAL STENOSIS LUMBAR STENOSIS [id number] 11/23/2014 23:46:00 11/24/2014 02:37:00 DIS Emergency IZABELA RENDON MD [facility] ER ABD PAIN [id number] 09/13/2014 09:03:00 09/13/2014 11:31:00 DIS Emergency JUSTICE [place], IZABELA Martinez [facility] ER BACK PAIN [id number] 09/04/2014 13:48:00 09/04/2014 15:54:00 DIS Emergency GEORGES FINN POLISHING PAD MOUNTER [facility] ER BACK PAIN [id number] 05/28/2014 01:35:00 05/28/2014 03:07:00 DIS Emergency ISSAC MASTERS MD [facility] ER POSS ALLERGIC RXN,HEAD PAIN [id number] 05/27/2014 08:20:00 05/27/2014 10:31:00 DIS Emergency ODGERS MD, RADHA K [facility] ER HEADACHE/NAUSEA [id number] 03/21/2014 17:22:00 03/21/2014 18:07:00 DIS Emergency SHANKAR YAN GAMING [facility] ER CRAMPING [id number] 02/04/2014 08:30:00 02/04/2014 23:59:59 CLS Outpatient LAZARO HURTADO Via [facility] CARD HTN,DYSPNEA [id number] 01/19/2014 13:10:00 01/19/2014 14:04:00 DIS Emergency SHANKAR DOYAN [facility] ER LOW BACK PAIN/UTI SYMPTOMS [id number] 11/20/2013 16:25:00 11/20/2013 17:42:00 DIS Emergency GEORGES FINN POLISHING PAD MOUNTER [facility] ER BACK PAIN [id number] 10/29/2013 10:28:00 10/29/2013 12:02:00 DIS Emergency SHANKAR DOYAN [facility] ER NAUSEATED/VOMITING [id number] 10/06/2013 15:24:00 10/06/2013 18:34:00 DIS Emergency KIARA MORRISON [facility] ER ABD PAIN [id number] 09/07/2013 07:08:00 09/08/2013 12:30:00 DIS Outpatient TATA TOMAS MD [facility] SDC COCCYGDYNIA [id number] 09/01/2013 13:39:00 09/01/2013 23:59:59 CLS Outpatient TATA TOMAS MD [facility] PREOP COCCYGDYNIA [id number] 07/31/2013 06:31:00 07/31/2013 07:53:00 DIS Outpatient LUIS MORENO MD [facility] CARD COCCYX PAIN [id number] 06/30/2013 07:14:00 06/30/2013 23:59:59 CLS Outpatient RONY ALDANA POLISHING PAD MOUNTER [facility] RAD ELEVATED LIVER ENZYMES [id number] 06/25/2013 16:02:00 06/25/2013 19:00:00 DIS Emergency ISSAC MASTERS MD [facility] ER NAUSEA,VOMITING [id number] 06/04/2013 21:16:00 06/04/2013 21:44:00 DIS Emergency YAN CHAPARRO DO Vickey [facility] ER WOUND CHECK [id number] 05/29/2013 20:51:00 05/30/2013 01:31:00 DIS Emergency KIARA MORRISON [facility] ER POSS ABSCESS [id number] 05/28/2013 10:15:00 05/28/2013 18:57:00 DIS Emergency SHANKAR YAN GAMING Vickey [facility] ER LEFT LEG KNOT [id number] 05/11/2013 19:26:00 05/11/2013 19:56:00 DIS Emergency GEORGES 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 [facility] ER RASH [id number] 05/03/2013 09:13:00 05/03/2013 11:33:00 DIS Emergency IZABELA RENDON MD [facility] ER ABD CRAMPING [id number] 03/08/2013 15:14:00 03/08/2013 16:28:00 DIS Emergency SHANKAR YAN [facility] ER HEADACHE [id number] 02/12/2013 14:02:00 02/12/2013 16:12:00 DIS Emergency RADHA MALLORY MD [facility] ER HEADACHE [id number] 02/03/2013 09:00:00 02/03/2013 23:59:59 CLS Outpatient [id number] 01/25/2013 16:03:00 01/25/2013 16:39:00 DIS Emergency SHANKAR DOYAN [facility] ER TAILBONE THROBS [id number] 01/23/2013 07:33:00 01/23/2013 23:59:59 CLS Outpatient LUIS MORENO MD [facility] CARD COCCYX PAIN [id number] 12/30/2012 11:28:00 12/30/2012 12:33:00 DIS Emergency JOHN GALDAMEZ MD [facility] ER LOOSING FEELING IN HANDS [id number] 11/29/2012 20:20:00 11/29/2012 21:04:00 DIS Emergency ISSAC MASTERS MD [facility] ER POST OP COMPLICATIONS [id number] 11/01/2012 13:48:00 11/01/2012 16:16:00 DIS Emergency YAN CHAPARRO DO [facility] ER R SIDE ABD PAIN [id number] 05/28/2014 05:09:00 Document Registration [id number] 05/28/2014 05:09:00 Document Registration [id number] 05/28/2014 05:08:00 Document Registration [id number] 05/28/2014 05:08:00 Document Registration [id number] 05/28/2014 05:08:00 Document Registration [id number] 09/25/2012 15:23:00 Document Registration [id number] 07/09/2012 13:55:00 Document Registration [id number] 06/03/2012 18:43:00 Document Registration [id number] 05/28/2012 06:01:00 Document Registration [id number] 05/26/2012 07:40:00 Document Registration [id number] 04/29/2012 19:28:00 Document Registration [id number] 04/14/2012 20:36:00 Document Registration [id number] 04/02/2012 15:46:00 Document Registration [id number] 03/10/2012 08:51:00 Document Registration [id number] 02/02/2012 08:22:00 Document Registration [id number] 11/05/2011 18:15:00 Document Registration [id number] 10/09/2011 15:34:00 Document Registration [id number] 09/28/2011 12:13:00 Document Registration [id number] 08/20/2011 11:21:00 Document Registration [id number] 08/07/2011 12:50:00 Document Registration [id number] 06/19/2011 15:10:00 Document Registration [id number] 06/14/2011 10:23:00 Document Registration [id number] 04/26/2011 09:49:00 Document Registration [id number] 04/01/2011 15:48:00 Document Registration [id number] 01/14/2011 20:10:00 Document Registration [id number] 01/10/2011 01:57:00 Document Registration [id number] 12/29/2010 21:29:00 Document Registration [id number] 12/08/2010 18:15:00 Document Registration [id number] 11/16/2010 19:34:00 Document Registration [id number] 11/13/2010 17:20:00 Document Registration [id number] 10/07/2010 15:04:00 Document Registration [id number] 10/01/2010 20:35:00 Document Registration [id number] 09/29/2010 15:45:00 Document Registration [id number] 09/22/2010 00:30:00 Document Registration [id number] 09/20/2010 18:21:00 Document Registration [id number] 09/16/2010 19:14:00 Document Registration [id number] 09/06/2010 15:05:00 Document Registration [id number] 08/30/2010 16:23:00 Document Registration [id number] 07/31/2010 10:04:00 Document Registration [id number] 07/24/2010 05:42:00 Document Registration [id number] 07/12/2010 09:04:00 Document Registration [id number] 07/02/2010 12:40:00 Document Registration [id number] 06/07/2010 10:52:00 Document Registration [id number] 05/22/2010 18:40:00 Document Registration [id number] 05/09/2010 13:26:00 Document Registration [id number] 04/07/2010 16:51:00 Document Registration [id number] 03/31/2010 12:30:00 Document Registration [id number] 03/22/2010 20:54:00 Document Registration [id number] 02/13/2010 10:21:00 Document Registration [id number] 02/07/2010 17:04:00 Document Registration [id number] 02/05/2010 19:55:00 Document Registration [id number] 01/23/2010 10:58:00 Document Registration [id number] 01/09/2010 05:35:00 Document Registration [id number] 01/05/2010 07:39:00 Document Registration [id number] 12/13/2009 10:13:00 Document Registration [id number] 11/07/2009 17:37:00 Document Registration [id number] 11/03/2009 09:46:00 Document Registration
== END 2017-07-29 11:33 | disposition home or self-care (01) ==
LOC: EDUNIT# 07:02 → ER 07:04
DX: R07.2 Precordial pain (principal); J45.909 Unspecified asthma, uncomplicated; G43.909 Migraine, unspecified, not intractable, without status migrainosus; F41.9 Anxiety disorder, unspecified; F32.9 Major depressive disorder, single episode, unspecified; Z86.19 Personal history of other infectious and parasitic diseases; Z82.49 Family history of ischemic heart disease and other diseases of the circulatory system; Z87.440 Personal history of urinary (tract) infections; Z86.010 Personal history of colon polyps; Z87.19 Personal history of other diseases of the digestive system; Z85.528 Personal history of other malignant neoplasm of kidney; Z88.5 Allergy status to narcotic agent; Z88.0 Allergy status to penicillin; Z90.89 Acquired absence of other organs; Z90.710 Acquired absence of both cervix and uterus; W18.30XA Fall on same level, unspecified, initial encounter
CPT/HCPCS: 71100; 73030; 73080; 73110; 81000; 96372; 99284

== ENCOUNTER 2017-08-12 15:41 | Emergency (ER) | payer MEDICARE, MEDICAID ==
[~2017-08-12] VITALS: Ht 160 cm; Wt 108.9 kg
[2017-08-12] MEDS ORDERED: LACTATED RINGERS 1,000 ML IV ONE (16:33)
--- NOTE | 2017-08-12 16:37 | ED Abdominal Pain ---
General Chief Complaint: Abdominal/GI Problems Stated Complaint: LEFT SIDE PAIN Nursing Triage Note: PT CO OF L SIDED PAIN AT SURGICAL AREA FROM MAR WHEN SHE HAD KIDNEY REMOVED. RATES PAIN 12/24. Sepsis Screen: No Definite Risk Source of Information: Patient Exam Limitations: No Limitations History of Present Illness Date Seen by Provider: Aug 12, 2017 Time Seen by Provider: 16:26 Initial Comments Patient presents to ER by private conveyance with chief complaint that about a week and half ago she had a fall on her left side resulted some pain and had a workup at that time no blood in the urine since then. She is now beginning to the last 2 days having more increasing pain and feeling of not side feels like burning sunburn. She has only one kidney after having her left kidney removed for cancer on the same side as her pain and this has her worried. She has been using Tylenol only and it's only moderately helping her pain. She's not having any painful urination but it has been orange, dark and little bit malodorous. She'll bowel movement earlier today that was normal formed. She is not using any laxatives. Allergies and Home Medications Allergies Coded Allergies: meperidine (Verified Allergy, Unknown, 05/23/16) penicillin G (Verified Allergy, Unknown, 05/23/16) Home Medications Cholecalciferol (Vitamin D3) 2,000 Unit Tablet, 2,000 UNIT PO HS, (Reported) Estradiol 2 Mg Tablet, 3 MG PO HS, (Reported) TAKES 1 & 1/2 (2MG) TABLETS Ferrous Sulfate 325 Mg Tablet, 325 MG PO WEEK, (Reported) Fluoxetine HCl 40 Mg Capsule, 40 MG PO HS, (Reported) Oseltamivir Phosphate 75 Mg Capsule, 75 MG PO BID Prescribed by: YUKI MARCH on 06/29/172119 Polyethylene Glycol 3350 17 Gm Powd.pack, 17 GM PO BID PRN PRN for CONSTIPATION- 1ST LINE Prescribed by: MAKAYLA HAWKINS on 08/12/171912 Ropinirole HCl 4 Mg Tablet, 4 MG PO HS, (Reported) Review of Systems Constitutional: No chills, No diaphoresis EENTM: No Blurred Vision, No Double Vision Respiratory: Denies Cough, Denies Shortness of Air Cardiovascular: Denies Chest Pain, Denies Palpitations Gastrointestinal: Abdomen Distended, Abdominal Pain, Denies Constipated, Denies Diarrhea, Denies Nausea, Denies Poor Appetite, Denies Poor Fluid Intake, Denies Vomiting Genitourinary: Denies Burning, Denies Discharge Musculoskeletal: No back pain, No joint pain Skin: No pruritus, No rash Psychiatric/Neurological: Denies Headache, Denies Numbness, Denies Paresthesia Past Tlozdah-Aeaxcw-Azcnxo Hx Patient Social History Alcohol Use: Denies Use Recreational Drug Use: No Smoking Status: Never a Smoker Type Used: Cigarettes 2nd Hand Smoke Exposure: No Recent Foreign Travel: No Contact w/Someone Who Travel: No Recent Infectious Disease Expo: No Recent Hopitalizations: No Immunizations Up To Date Tetanus Booster (TDap): Unknown Date of Pneumonia Vaccine: May 17, 2012 Date of Influenza Vaccine: Jul 03, 2012 Seasonal Allergies Seasonal Allergies: Yes (MILD) Surgeries History of Surgeries: Yes (R KNEE SCOPE X4 L X2, NASAL FX, EGD/COLONOSCOPY, COCCYX REMOVAL,) Surgeries: Abdominal, Adenoidectomy, Appendectomy, Gallbladder, 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, Nephrectomy, Orthopedic, Tonsillectomy Respiratory History of Respiratory Disorde: Yes (HASNT USED INHALER IN > 4 YRS) Respiratory Disorders: Asthma Currently Using CPAP: No Currently Using BIPAP: No Cardiovascular History of Cardiac Disorders: No Neurological History of Neurological Disord: Yes (RESTLESS LEG SYNDROME) Neurological Disorders: Headaches /Migraines 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 System Hx 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: Yes (HX ENDOMETRIOSIS ) Sexually Transmitted Disease: No HIV/AIDS: No 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, 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 Genitourinary History of Genitourinary Disor: Yes (L KIDNEY REMOVED FOR TUMOR; FATTY LIVER/ ENLARGED LIVER) Genitourinary Disorders: UTI-Chronic Gastrointestinal History of Gastrointestinal Di: Yes (ENLARGED LIVER) Gastrointestinal Disorders: Pancreatitis, Polyps Musculoskeletal History of Musculoskeletal Dis: Yes (COCCYX-REPAIRED, MAY HAVE SIGNS OF ARTHRITIS) Musculoskeletal Disorders: Chronic Back Pain Endocrine History of Endocrine Disorders: No (CHRONIC PANCREATITIS) HEENT History of HEENT Disorders: No Loss of Vision: Denies Hearing Impairment: Denies Cancer History of Cancer: Yes Cancer: Kidney Type of Tx Receive: Surgical Intervention Psychosocial History of Psychiatric Problem: Yes Behavioral Health Disorders: Anxiety, Depression Integumentary History of Skin or Integumenta: No Skin/Integumentary Disorders: Herpes Blood Transfusions History of Blood Disorders: No Adverse Reaction to a Blood Tr: No Family Medical History Significant Family History: Cancer, Diabetes, Hypertension Family Medial History: Cardiovascular disease 19 FATHER Completed stroke 19 FATHER Diabetes mellitus 19 FATHER Hypercholesterolemia 19 FATHER 19 MOTHER Hypertension 19 FATHER 19 MOTHER Neoplasm 19 MOTHER Psychosocial problem 19 FATHER 19 MOTHER Physical Exam Vital Signs VS - Last 72 Hours, by Label 08/12/17 16:10 Temp 97.4 Pulse 92 Resp 18 B/P (MAP) 123/92 (102) Pulse Ox 97 Capillary Refill : Less Than 3 Seconds General Appearance: no apparent distress HEENT: PERRL/EOMI, pharynx normal Respiratory: no respiratory distress, no accessory muscle use Cardiovascular: normal peripheral pulses, regular rate, rhythm, no edema Gastrointestinal: normal bowel sounds, soft, tenderness (left abdomen and flank ) Back: normal inspection, no CVA tenderness, no vertebral tenderness Neurologic/Psychiatric: alert, normal mood/affect, oriented x 3 Skin: normal color, warm/dry Progress/Results/Core Measures Results/Orders Lab Results Laboratory Tests Test 08/12/17 17:10 Range/Units White Blood Count 8.7 4.3-11.0 10^3/uL Red Blood Count 4.07 L 4.35-5.85 10^6/uL Hemoglobin 11.7 11.5-16.0 G/DL Hematocrit 35 35-52 % Mean Corpuscular Volume 85 80-99 FL Mean Corpuscular Hemoglobin 29 25-34 PG Mean Corpuscular Hemoglobin Concent 34 32-36 G/DL Red Cell Distribution Width 13.4 10.0-14.5 % Platelet Count 283 130-400 10^3/uL Mean Platelet Volume 9.3 7.4-10.4 FL Neutrophils (%) (Auto) 63 42-75 % Lymphocytes (%) (Auto) 30 12-44 % Monocytes (%) (Auto) 4 0-12 % Eosinophils (%) (Auto) 3 0-10 % Basophils (%) (Auto) 0 0-10 % Neutrophils # (Auto) 5.5 1.8-7.8 X 10^3 Lymphocytes # (Auto) 2.6 1.0-4.0 X 10^3 Monocytes # (Auto) 0.4 0.0-1.0 X 10^3 Eosinophils # (Auto) 0.2 0.0-0.3 10^3/uL Basophils # (Auto) 0.0 0.0-0.1 10^3/uL Urine Color YELLOW Urine Clarity CLEAR Urine pH 5 5-9 Urine Specific [place] 1.025 H 1.016-1.022 Urine Protein 1+ H NEGATIVE Urine Glucose (UA) NEGATIVE NEGATIVE Urine Ketones NEGATIVE NEGATIVE Urine Nitrite NEGATIVE NEGATIVE Urine Bilirubin NEGATIVE NEGATIVE Urine Urobilinogen NORMAL NORMAL MG/DL Urine Leukocyte Esterase NEGATIVE NEGATIVE Urine RBC (Auto) NEGATIVE NEGATIVE Urine RBC NONE /HPF Urine WBC NONE /HPF Urine Squamous Epithelial Cells 25-50 H /HPF Urine Crystals NONE /LPF Urine Bacteria MODERATE H /HPF Urine Casts NONE /LPF Urine Mucus NEGATIVE /LPF Urine Culture Indicated NO Sodium Level 140 135-145 MMOL/L Potassium Level 3.7 3.6-5.0 MMOL/L Chloride Level 107 98-107 MMOL/L Carbon Dioxide Level 22 21-32 MMOL/L Anion Gap 11 5-14 MMOL/L Blood Urea Nitrogen 15 7-18 MG/DL Creatinine 0.81 0.60-1.30 MG/DL Estimat Glomerular Filtration Rate > 60 BUN/Creatinine Ratio 19 Glucose Level 163 H 70-105 MG/DL Calcium Level 8.7 8.5-10.1 MG/DL Phosphorus Level 2.6 2.3-4.7 MG/DL Magnesium Level 1.9 1.8-2.4 MG/DL Total Bilirubin 0.2 0.1-1.0 MG/DL Aspartate Amino Transf (AST/SGOT) 22 5-34 U/L Alanine Aminotransferase (ALT/SGPT) 17 0-55 U/L Alkaline Phosphatase 54 40-136 U/L Total Protein 6.8 6.4-8.2 GM/DL Albumin 3.6 3.2-4.5 GM/DL Lipase 41 8-78 U/L My Orders Orders - MAKAYLA HAWKINS Cbc With Automated Diff (08/12/17 16:33) Comprehensive Metabolic Panel (08/12/17 16:33) Lipase (08/12/17 16:33) Magnesium (08/12/17 16:33) Ua Culture If Indicated (08/12/17 16:33) Phosphorus (08/12/17 16:33) Ct Abdomen/Pelvis Wo (08/12/17 16:33) Saline Lock/Iv-Start (08/12/17 16:33) Saline Lock/Iv-Start (08/12/17 16:33) Lactated Ringers (Lr 1000 Ml Iv Solution (08/12/17 16:33) Fentanyl Injection (Sublimaze Injection (08/12/17 16:45) Medications Given in ED Current Medications Medications Dose Ordered Sig/Neal Route Start Time Stop Time Status Last Admin Dose Admin Fentanyl Citrate 50 mcg ONCE ONCE IVP 08/12/17 16:45 08/12/17 16:46 DC 08/12/17 17:17 50 MCG Lactated Ringer's 1,000 ml @ 0 mls/hr Q0M ONCE IV 08/12/17 16:33 08/12/17 16:36 DC 08/12/17 17:17 1,000 MLS/HR Vital Signs/I&O Vital Sign - Last 12Hours 08/12/17 16:10 Temp 97.4 Pulse 92 Resp 18 B/P (MAP) 123/92 (102) Pulse Ox 97 Blood Pressure Mean: 102 Progress Note : Time: 19:00 Progress Note Patient's had a bowel movement today. No evidence of strangulation or incarceration. Moderately large hernial defect in the left anterior abdominal wall probably related to her recent surgeries last year. We'll let her follow up with her surgeon at for management outpatient. We will have radiology cloud the images up to for the surgeon to review at their leisure if they need to. Diagnostic Imaging Diagonstic Imaging: CT Plain Films/CT/US/NM/MRI: abdomen, pelvis Comments No intra-abdominal free fluid or air. Bowel is unremarkable. There is a loop of small bowel in a left abdominal hernial defect does not appear to be inflamed, incarcerated or strangulated. Left lower lobe nodule seen in the lung that was present a few months ago April 2017 but not seen in prior CT from 2012. Patient will need to follow this up outpatient. Discussed the case with the radiologist who did not primarily read the CT scan from [place]. He agrees that the hernial defect and is not incarcerated, strangulated or showing any evidence of obstruction. NAME: JAYLYN DELGADO [facility] REC#: [id number] PHYSICIAN: MAKAYLA HAWKINS MD CC: BHUPENDRA WONG MD; MAKAYLA HAWKINS Page 2 of 2 RADIOLOGY REPORT VIA [facility] [place], [place] CC: BHUPENDRA WONG MD; MAKAYLA HAWKINS Page 1 of 2 RADIOLOGY REPORT NAME: JAYLYN DELGADO [facility] REC#: [id number] PT STATUS: REG ER : 1985 PHYSICIAN: MAKAYLA HAWKINS MD ADMIT DATE: 08/12/17/ER Signed Date of Exam: 08/12/17 CT ABDOMEN/PELVIS WO INDICATION: Prior history of left nephrectomy. EXAM: CT abdomen and pelvis without IV contrast. COMPARISON to 04/30/2017 FINDINGS: The visualized portions of the lung bases demonstrate a nodular density along the left hemidiaphragm measuring about 1.4 cm. It is not clear if this arises in the lung base or if it is a focal lesion of the left hemidiaphragm. This appeared similar on the previous study. There is no pleural fluid. There is no free intraperitoneal air. The liver shows no focal lesion without contrast. There is diffuse fatty infiltration. The gallbladder is surgically absent. The spleen, adrenals, and pancreas appear normal. The right kidney shows no hydronephrosis or radiopaque stone. The left kidney is surgically absent. There is no recurrent lesion in the left renal fossa. There are surgical clips in the right lower quadrant. The pelvis shows no mass or free fluid. The visualized bowel loops show no overt obstruction. There is a left lateral abdominal wall hernia, which contains portions of retroperitoneal fat and some bowel loops without obstruction. This appears to be larger in size than on the previous study. IMPRESSION: No sign of bowel obstruction or abscess. Status post left nephrectomy. There is a normal-appearing right kidney with no hydronephrosis or stone. The patient has had cholecystectomy. There is fatty infiltration of the liver. There is increasing left lateral abdominal wall hernia without obstruction. There is a nodular density along the left hemidiaphragm which may represent a focal lesion of the diaphragm versus a lesion in the lung base. This is unchanged from 04/30/2017. This was not seen on older studies. Recommend followup. Dictated by: Dictated on workstation # [id number] Dict: 08/12/17 1754 Trans: 08/12/171911 Interpreted by: BHUPENDRA WONG MD Electronically signed by: BHUPENDRA WONG MD 08/12/171911 Reviewed: Reviewed by Me, Discussed w/Radiologist Departure Impression Impression: Primary Impression: Hernia of anterior abdominal wall Disposition: 01 HOME, SELF-CARE Condition: Stable Departure-Patient Inst. Decision time for Depature: 19:11 Referrals: CARMEN GIBBS MD (PCP/Family) Primary Care Physician Patient Instructions: Abdominal Wall Hernias Add. Discharge Instructions: Drink plenty of water and if you're having a hard time passing a bowel movement you can use a capful of MiraLAX mixed in 6-8 ounces of fluids 1-2 times a day. If you still cannot pass a bowel movement or your pain increases or you have nausea and vomiting then you should return to care. Plan to follow up by phone with your surgeon to set up an appointment to discuss your hernia on the left side of your abdomen. Follow up with your primary care physician or your cancer doctor at your next appointment about the left lower lobe lung nodule that will need follow-up imaging in 6-12 months. All discharge instructions reviewed with patient and/or family. Voiced understanding. Scripts Polyethylene Glycol 3350 (Miralax) 17 Gm Powd.pack 17 GM PO BID PRN Y for CONSTIPATION-1ST LINE, #1 EACH 0 Refills Prov: MAKAYLA HAWKINS 08/12/17 Copy Copies To 1: EMIL ROLON DO MAKAYLA HAWKINS Aug 12, 2017 16:37
[2017-08-12] MEDS ORDERED: fentaNYL INJECTION 100 MCG/2 ML AMP IVP ONE (16:45)
[2017-08-12 17:21] LABS: BASOPHILS % (AUTO) 0 % (0-10); EOSINOPHILS # (AUTO) 0.2 10^3/uL (0.0-0.3); EOSINOPHILS % (AUTO) 3 % (0-10); HEMATOCRIT 35 % (35-52); HEMOGLOBIN 11.7 G/DL (11.5-16.0); LYMPHOCYTES # (AUTO) 2.6 X 10^3 (1.0-4.0); LYMPHOCYTES % (AUTO) 30 % (12-44); MEAN CORPUSCULAR HEMOGLOBIN 29 PG (25-34); MEAN CORPUSCULAR HGB CONC 34 G/DL (32-36); MEAN CORPUSCULAR VOLUME 85 FL (80-99); MEAN PLATELET VOLUME 9.3 FL (7.4-10.4); MONOCYTES # (AUTO) 0.4 X 10^3 (0.0-1.0); MONOCYTES % (AUTO) 4 % (0-12); NEUTROPHILS # (AUTO) 5.5 X 10^3 (1.8-7.8); NEUTROPHILS % (AUTO) 63 % (42-75); PLATELET COUNT 283 10^3/uL (130-400); RED BLOOD COUNT 4.07 10^6/uL (4.35-5.85); RED CELL DISTRIBUTION WIDTH 13.4 % (10.0-14.5); WHITE BLOOD COUNT 8.7 10^3/uL (4.3-11.0)
[2017-08-12 17:24] LABS: BILIRUBIN,URINE NEGATIVE (NEGATIVE); CLARITY,URINE CLEAR; COLOR,URINE YELLOW; GLUCOSE, URINE (UA) NEGATIVE (NEGATIVE); KETONES,URINE NEGATIVE (NEGATIVE); LEUKOCYTE ESTERASE ,URINE NEGATIVE (NEGATIVE); NITRITE,URINE NEGATIVE (NEGATIVE); PH,URINE 5 (5-9); PROTEIN,URINE 1+ (NEGATIVE); UROBILINOGEN,URINE NORMAL (NORMAL)
[2017-08-12 17:32] LABS: BACTERIA,URINE MODERATE /HPF; SQUAMOUS EPITHELIAL CELL,UR 25-50 /HPF
[2017-08-12 17:49] LABS: ALANINE AMINOTRANSFERASE 17 U/L (0-55); ALBUMIN 3.6 GM/DL (3.2-4.5); ALKALINE PHOSPHATASE 54 U/L (40-136); BILIRUBIN,TOTAL 0.2 MG/DL (0.1-1.0); BUN/CREATININE RATIO 19; CALCIUM 8.7 MG/DL (8.5-10.1); CARBON DIOXIDE 22 MMOL/L (21-32); CHLORIDE 107 MMOL/L (98-107); CREATININE SERUM 0.81 MG/DL (0.60-1.30); GFR ESTIMATED > 60; GLUCOSE 163 MG/DL (70-105); MAGNESIUM 1.9 MG/DL (1.8-2.4); PHOSPHORUS 2.6 MG/DL (2.3-4.7); POTASSIUM 3.7 MMOL/L (3.6-5.0); SODIUM 140 MMOL/L (135-145); TOTAL PROTEIN 6.8 GM/DL (6.4-8.2)
[2017-08-12 17:58] LABS: LIPASE 41 U/L (8-78)
[2017-08-12] MEDS ORDERED: POLY17PO6 PO (19:13)
--- NOTE | 2017-08-12 19:15 | Diagnostic Imaging Report ---
INDICATION: Prior history of left nephrectomy. EXAM: CT abdomen and pelvis without IV contrast. COMPARISON to 04/30/2017 FINDINGS: The visualized portions of the lung bases demonstrate a nodular density along the left hemidiaphragm measuring about 1.4 cm. It is not clear if this arises in the lung base or if it is a focal lesion of the left hemidiaphragm. This appeared similar on the previous study. There is no pleural fluid. There is no free intraperitoneal air. The liver shows no focal lesion without contrast. There is diffuse fatty infiltration. The gallbladder is surgically absent. The spleen, adrenals, and pancreas appear normal. The right kidney shows no hydronephrosis or radiopaque stone. The left kidney is surgically absent. There is no recurrent lesion in the left renal fossa. There are surgical clips in the right lower quadrant. The pelvis shows no mass or free fluid. The visualized bowel loops show no overt obstruction. There is a left lateral abdominal wall hernia, which contains portions of retroperitoneal fat and some bowel loops without obstruction. This appears to be larger in size than on the previous study. IMPRESSION: No sign of bowel obstruction or abscess. Status post left nephrectomy. There is a normal-appearing right kidney with no hydronephrosis or stone. The patient has had cholecystectomy. There is fatty infiltration of the liver. There is increasing left lateral abdominal wall hernia without obstruction. There is a nodular density along the left hemidiaphragm which may represent a focal lesion of the diaphragm versus a lesion in the lung base. This is unchanged from 04/30/2017. This was not seen on older studies. Recommend followup. Dictated by: Dictated on workstation # [id number]
[2017-08-12 19:26] VITALS: BP 123/92
== END 2017-08-12 19:26 | disposition home or self-care (01) ==
LOC: EDUNIT# 15:41 → ER 15:42
DX: K43.9 Ventral hernia without obstruction or gangrene (principal); J45.909 Unspecified asthma, uncomplicated; G43.909 Migraine, unspecified, not intractable, without status migrainosus; F41.9 Anxiety disorder, unspecified; F32.9 Major depressive disorder, single episode, unspecified; Z87.440 Personal history of urinary (tract) infections; Z86.19 Personal history of other infectious and parasitic diseases; Z82.49 Family history of ischemic heart disease and other diseases of the circulatory system; Z86.010 Personal history of colon polyps; Z87.19 Personal history of other diseases of the digestive system; Z90.5 Acquired absence of kidney; Z88.0 Allergy status to penicillin; Z88.5 Allergy status to narcotic agent; Z90.49 Acquired absence of other specified parts of digestive tract; Z90.89 Acquired absence of other organs; Z90.710 Acquired absence of both cervix and uterus
CPT/HCPCS: 36415; 74176; 80053; 81000; 83690; 83735; 84100; 85025; 96374

== ENCOUNTER 2017-08-20 05:40 | Outpatient (CLI) | payer MEDICARE, MEDICAID ==
[~2017-08-20] VITALS: Ht 160 cm; Wt 108.9 kg
[~2017-08-20 05:40] MED LIST changes: +POLY17PO6 PO
[2017-08-20] MEDS ORDERED: CNC1KV IJ (12:47)
[2017-08-20] MEDS ORDERED: ONDA8TAB6 PO (12:47)
[2017-08-22] MEDS ORDERED: HYDR-34 PO (14:12)
== END 2017-08-20 13:12 ==
LOC: PREOP 05:40
PROVIDERS: ATTEND Surgery
DX: Z01.818 Encounter for other preprocedural examination (principal); K43.2 Incisional hernia without obstruction or gangrene

== ENCOUNTER 2017-08-22 10:45 | Day surgery (SDC) | payer MEDICARE, MEDICAID ==
[~2017-08-22] VITALS: Ht 160 cm; Wt 108.9 kg
[~2017-08-22 10:45] MED LIST changes: +CNC1KV IJ; +ONDA8TAB6 PO
--- OUTSIDE RECORDS SUMMARY | 2017-08-22 10:49 | XMS REPORT | Continuity of Care Document ---
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 Active [facility] [place] SER[facility] [id number] [facility] 03/18/2017 03/18/2017 Active [facility] EXT RECOVERY [id number] [facility] 04/10/2017 04/11/2017 Active [facility] [place] [facility] [id number] [facility] 05/06/2017 05/06/2017 Active [facility] OUTPATIENT [id number] 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
--- OUTSIDE RECORDS SUMMARY | 2017-08-22 10:50 | XMS REPORT | Encounter Summary ---
Author Author [facility] Organization [facility] Address Unknown Phone Unavailable Care Team Providers Care Production Tester Name Role Phone Michael Sutton MD Unavailable Unavailable Mary Whittington MD PCP Jessica Valera Unavailable Maggie Puente Unavailable Unavailable Mary Telles APRN Unavailable Bam Ritter MD Unavailable Radha Bo LPN Unavailable Unavailable Jose Sanchez MD Unavailable Reason for Visit * Reason Comments Medication Refill Encounter Details Date Type Department Care Team Description 08/08/2017 Refill [facility] Randy Nunez MD Medication monitoring Physicians - Internal [address] [place] [address] encounter Medicine [place] [phone] [place] [address] [place] [address] Social History Tobacco Use Types [...] as of this encounter Visit Diagnoses Diagnosis Medication monitoring encounter Encounter for therapeutic drug monitoring
--- OUTSIDE RECORDS SUMMARY | 2017-08-22 10:50 | XMS REPORT | Encounter Summary ---
Author Author [facility] Organization [facility] Address Unknown Phone Unavailable Care Team Providers Care Ice Cream Vault Worker Name Role Phone Michael Sutton MD Unavailable Unavailable Mary Whittington MD PCP Jessica Valera Unavailable Maggie Puente Unavailable Unavailable Mary Telles APRN Unavailable Bam Ritter MD Unavailable Radha Bo LPN Unavailable Unavailable Jose Sanchez MD Unavailable Reason for Visit * Reason Comments Hernia Encounter Details Date Type Department Care Team Description 08/14/2017 Telephone [facility] Abel Poe MD [facility] - [facility] Exam [address] [facility] [address] [place] [address] [place] [address] [phone] Social History Tobacco Use Types Packs/Day Years [...] Miscellaneous Notes * Telephone Encounter - Jenn Bhatt, RN - 08/14/2017 11:56 AM MEDICAL PHYSICIST Returned pt's phone messages regarding new report of lung nodule and abd hernia. She spent time in the ED this weekend @ [facility] in [place]. She reports these findings and their recommendation that she follow up with Dr. Poe. Awaiting confirmation of records and will advise pt on follow up. in this encounter Plan of Treatment Date Type Specialty Care Team Description 05/06/2017 Procedure Pass Oncology 05/06/2017 Procedure Pass Oncology as of this encounter Visit Diagnoses Not on filein this encounter
--- OUTSIDE RECORDS SUMMARY | 2017-08-22 10:50 | XMS REPORT | Encounter Summary ---
Author Author [facility] Organization [facility] Address Unknown Phone Unavailable Care Team Providers Care Web Developer Name Role Phone Michael Sutton MD [...] General Question; Records Physicians - Internal [address] [facility] Request Medicine [address] [place] [address] [address] [facility] [phone] [address] Social History Tobacco Use Types [...] Arleen Leone RN - 07/11/2017 11:17 AM SUPERVISOR MODERN LANGUAGES Phoned patient. Confirms did get colonoscopy locally and was informed was normal. Request for records sent to [facility] to review with Dr. Nunez. Difficult conversation [...] Alexandria Domingo RN - 07/09/2017 3:05 PM SUPERVISOR MODERN LANGUAGES Patient called and left a voice mail [...]
--- OUTSIDE RECORDS SUMMARY | 2017-08-22 10:50 | XMS REPORT | Encounter Summary ---
Author Author [facility] Organization [facility] Address Unknown Phone Unavailable Care Team Providers Care Naval Aircrewman Name Role Phone Michael Sutton MD Unavailable Unavailable Mary Whittington MD PCP Jessica Valera Unavailable Maggie Puente Unavailable Unavailable Mary Telles APRN Unavailable Bam Ritter MD Unavailable Radha Bo CHEMIST BIOLOGICAL Unavailable Unavailable Jose Sanchez MD Unavailable Encounter Details Date Type Department Care Team Description 05/06/2017 Procedure Pass [facility] Cancer Center - [facility] Exam [address] [place] [address] Social History Tobacco Use Types Packs/Day Years [...]
--- OUTSIDE RECORDS SUMMARY | 2017-08-22 10:50 | XMS REPORT | Encounter Summary ---
Author Author [facility] Address Unknown Phone Unavailable Care Team Providers Care Endless Track Vehicle Mechanic Name Role Phone Michael Sutton MD Unavailable Unavailable Mary Whittington MD PCP Jessica Valera Unavailable Maggie Puente Unavailable Unavailable Mary Telles APRN Unavailable Bam Ritter MD Unavailable Radha Bo LPN Unavailable Unavailable Jose Sanchez MD Unavailable Encounter Details Date Type Department Care Team Description 08/13/2017 Ancillary Rad Outpatient, Radiologist Diagnosis unknown Orders [address] [place] [address] Social History Tobacco Use Types [...] encounter Results * CT ABD/PEL EXTERNAL IMAGING (08/12/2017) Narrative This order has been auto finalized and does not contain a result. in this encounter Visit Diagnoses Diagnosis Diagnosis unknown Other unknown and unspecified cause of morbidity or mortality
--- OUTSIDE RECORDS SUMMARY | 2017-08-22 10:50 | XMS REPORT | Encounter Summary ---
Author Author [facility] Organization [facility] Address Unknown Phone Unavailable Care Team Providers Care Button Riveter Name Role Phone Michael Sutton MD Unavailable Unavailable Mary Whittington MD PCP Jessica Valera Unavailable Maggie Puente Unavailable Unavailable Mary Telles APRN Unavailable Bam Ritter MD Unavailable Radha Bo LPN Unavailable Unavailable Jose Sanchez MD Unavailable Encounter Details Date Type Department Care Team Description 06/19/2017 Orders Only [facility] Jose Sanchez MD Physicians - Internal [address] [facility] Medicine [address] [place] [address] [address] [facility] MED [phone] [place] [address] Social History Tobacco Use Types [...]
--- OUTSIDE RECORDS SUMMARY | 2017-08-22 10:50 | XMS REPORT | Encounter Summary ---
Author Author [facility] Organization [facility] Address Unknown Phone Unavailable Care Team Providers Care Business Records Manager Name Role Phone Michael Sutton MD Unavailable Unavailable Mary Whittington MD PCP Jessica Valera Unavailable Maggie Puente Unavailable Unavailable Mary Telles APRN Unavailable Bam Ritter MD Unavailable Radha Bo LPN Unavailable Unavailable Jose Sanchez MD Unavailable Reason for Visit * Reason Comments Fall Encounter Details Date Type Department Care Team Description 08/08/2017 Telephone [facility] Abel Poe MD [facility] - [facility] Exam [address] [facility] [address] [place] [address] [place] [address] [phone] Social History Tobacco Use Types Packs/Day Years [...] Telephone Encounter - Jenn Bhatt, RN - 08/08/2017 10:19 AM MACHINE WHITENER Pt left message that she had a recent fall and was experiencing pain on the side of her kidney surgery done in [place]. Returned her call and left her a message informing her that since she is in [place], [place] she needs to be evaluated closer to home for any injury. Nothing can be done over the phone. She has contact info for any further concerns. in this encounter Plan of Treatment Date Type Specialty Care Team Description 05/06/2017 Procedure Pass Oncology 05/06/2017 Procedure Pass Oncology as of this encounter Visit Diagnoses Not on filein this encounter
--- OUTSIDE RECORDS SUMMARY | 2017-08-22 10:50 | XMS REPORT | Encounter Summary ---
Author Author [facility] Organization [facility] Address Unknown Phone Unavailable Care Team Providers Care Weight Loss Sales Consultant Name Role Phone Michael Sutton MD Unavailable Unavailable Mary Whittington MD PCP Jessica Valera Unavailable Maggie Puente Unavailable Unavailable Mary Telles APRN Unavailable Bam Ritter MD Unavailable Radha Bo MAINSPRING WINDER AND OILER Unavailable Unavailable Jose Sanchez MD Unavailable Encounter Details Date Type Department Care Team Description 05/06/2017 Procedure Pass [facility] Cancer Center - [facility] Exam [address] [place] [address] Social History Tobacco Use Types Packs/Day Years [...]
--- OUTSIDE RECORDS SUMMARY | 2017-08-22 10:50 | XMS REPORT | Encounter Summary ---
Author Author [facility] Organization [facility] Address Unknown Phone Unavailable Care Team Providers Care Aerobics Teacher Name Role Phone Michael Sutton MD Unavailable Unavailable Mary Whittington MD PCP Jessica Valera Unavailable Maggie Puente Unavailable Unavailable Mary Telles CANDY POLISHER Unavailable Bam Ritter MD Unavailable Radha Bo COMPUTER DESIGNER Unavailable Unavailable Jose Sanchez MD Unavailable Reason for Referral * Consult, Test & Treat Status Reason Specialty Diagnoses / Referred By Referred To Procedures Contact Contact Closed Specialty General Surgery Diagnoses Abel Poe MD Freund, William L, Services Renal cell [address] Required cancer, left Blvd [address] (HCC) [address] [place] [address] Phone: Fax: Encounter Details Date Type Department Care Team Description 08/14/2017 Orders Only [facility] Abel Poe MD Renal cell cancer, left Cancer Center - WW Exam [address] (HCC) (Primary Dx) [address] [place] [address] [place] [address] [phone] Social History Tobacco Use Types Packs/Day Years [...] Associated Diagnoses Order Schedule AMB REFERRAL TO GENERAL SURGERY Routine Renal cell cancer, left Ordered : 08/14/2017 (HCC) as of this encounter Visit Diagnoses Diagnosis Renal cell cancer, left (HCC) - Primary
--- OUTSIDE RECORDS SUMMARY | 2017-08-22 10:50 | XMS REPORT | Encounter Summary ---
Author Author [facility] Organization [facility] Address Unknown Phone Unavailable Care Team Providers Care Electrical Prospecting Observer Name Role Phone Michael Sutton MD Unavailable Unavailable Mary Whittington MD PCP Jessica Valera Unavailable Maggie Puente Unavailable Unavailable Mary Telles APRN Unavailable Bam Ritter MD Unavailable Radha Bo LPN Unavailable Unavailable Jose Sanchez MD Unavailable Encounter Details Date Type Department Care Team Description 08/12/2017 Hospital [facility] Radiology [address] [facility] [address] [place] [address] Social History Tobacco Use Types [...]
--- OUTSIDE RECORDS SUMMARY | 2017-08-22 10:50 | XMS REPORT | Clinical Summary ---
Author Author [facility] Organization [facility] Address Unknown Phone Unavailable Care Team Providers Care Senior Credit Officer Name Role Phone Michael Sutotn MD Unavailable Unavailable Mary Whittington MD PCP [...] in the Health Information Management department at [phone] for further assistance in locating additional records.[facility] Allergies Active Allergy Reactions Severity Noted [...] Overview: Added automatically from request for surgery [id number] 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 06/24/2013 Overview: S/P FREDI LINO 11/27 Depression 06/24/2013 S/P cholecystectomy 06/24/2013 Overview: 2007 S/P appendectomy 06/24/2013 Overview: November 2012 Pancreatitis 10/23/2011 Encounters Date Type Specialty Care Team Description 08/14/2017 Orders Only Oncology Abel Poe MD Renal cell cancer, left (HCC) (Primary Dx) 08/14/2017 Telephone Oncology Abel Poe MD Hernia 08/13/2017 Ancillary Radiology Outpatient, Radiologist Diagnosis unknown Orders 08/12/2017 Hospital Radiology Encounter 08/08/2017 Refill Gastroenterology Randy Nunez MD Medication monitoring encounter 08/08/2017 Telephone Oncology Abel Poe MD Fall 07/09/2017 Telephone Gastroenterology Randy Nunez MD General Question; Records Request 06/20/2017 Telephone Oncology Abel Poe MD Pain 06/19/2017 Orders Only Gastroenterology Tyesha Sanchez MD 06/19/2017 Telephone Gastroenterology Randy Nunez MD Follow-up Phone Call 06/18/2017 Hospital Lab Tyesha Sanchez MD Other chronic Encounter pancreatitis (HCC) 06/06/2017 Telephone Gastroenterology Maggie Puente Appointment Request (Upper EUS/Colonoscopy) 06/06/2017 Telephone GastroenterRandy Beaulieu MD Results; Test 06/03/2017 Hospital Lab Randy Nunez MD Encounter 06/03/2017 Office Visit Gastroenterology Randy Nunez MD Nausea and vomiting, intractability of vomiting not specified, unspecified vomiting type (Primary Dx); Microcytic anemia; Fatigue, unspecified type; Weight gain; Chronic pancreatitis, unspecified pancreatitis type (HCC); History of colon polyps; Low vitamin D level; Medication monitoring encounter 06/03/2017 Documentation Oncology Abel Poe MD from Last 3 Months Family History Medical [...] Taken Blood Pressure 129/78 06/03/2017 10:10 AM FINANCE CONTROLLER Pulse 66 06/03/2017 10:10 AM FINANCE CONTROLLER Temperature 36.6 C (97.8 F) 06/03/2017 10:10 AM FINANCE CONTROLLER Respiratory Rate 14 06/03/2017 10:10 AM FINANCE CONTROLLER Oxygen Saturation 97% 05/06/2017 8:47 AM FINANCE CONTROLLER Inhaled Oxygen - - Concentration Weight 117.2 kg (258 lb 4.8 oz) 06/03/2017 10:10 AM FINANCE CONTROLLER Height 160 cm (5' 3") 06/03/2017 10:10 AM FINANCE CONTROLLER Body Mass Index 45.76 06/03/2017 10:10 AM FINANCE CONTROLLER Plan of Treatment Date Type Specialty Care Team Description 05/06/2017 Procedure Pass Oncology 05/06/2017 Procedure Pass Oncology Health Maintenance Due Date Last Done Comments PHYSICAL (COMPREHENSIVE) 1991 EXAM PERTUSSIS VACCINE 1995 HIV SCREENING 1999 TETANUS VACCINE 2001 CERVICAL CANCER SCREENING 2014 INFLUENZA VACCINE 03/17/2018 Results * CT ABD/PEL EXTERNAL IMAGING (08/12/2017) Narrative This order has been auto finalized and does not contain a result. * SURGICAL PATHOLOGY (06/18/2017 2:27 PM) Component Value Ref Range PATHOLOGY REPORT [facility] [email or web address] Department of Pathology and Laboratory Medicine [address] [place] [address] Surgical Pathology Office: [phone] SURGICAL PATHOLOGY REPORT NAME: JAYLYN DELGADO SURG PATH #: [id number] MR #: [id number] SPECIMEN CLASS: SR BILLING #: [id number] ALT ID #: LOCATION: [facility] DATE OF PROCEDURE: 06/18/2017 AGE: 32 [...] trujillo/06/18/2017 Specimen Performing Laboratory [facility] RESULTS * ENDOSCOPIC ULTRASOUND REPORT (06/18/2017) Specimen Performing Laboratory IN CLINIC * IRON + BINDING CAPACITY + %SAT+ FERRITIN (06/03/2017 11:28 AM) Component Value Ref Range Iron 86 50 - 160 MCG/DL Iron Binding-TIBC 548 (H) 270 - 380 MCG/DL % Saturation 16 (L) 28 - 42 % Ferritin 60 10 - 200 NG/ML Specimen Performing Laboratory Blood MAIN LAB [address] [place] [address] * TSH WITH FREE T4 REFLEX (06/03/2017 11:28 AM) Component Value Ref Range TSH 1.708 0.35 - 5.00 MCU/ML Specimen Performing Laboratory Blood MAIN LAB [address] [place] [address] * 25-OH VITAMIN D (D2 + D3) (06/03/2017 11:28 AM) Component Value Ref Range Vitamin D(25-OH)Total 19.3 (L) 30 - 80 NG/ML Specimen Performing Laboratory Blood MAIN LAB [address] [place] [address] * LIPASE (06/03/2017 11:28 AM) Component Value Ref Range Lipase 26 11 - 82 U/L Specimen Performing Laboratory Blood MAIN LAB [address] [place] [address] * VITAMIN B12 (06/03/2017 11:28 AM) Component Value Ref Range Vitamin B12 185 180 - 914 PG/ML Specimen Performing Laboratory Blood MAIN LAB [address] [place] [address] * CORTISOL-AM (06/03/2017 11:28 AM) Component Value Ref Range Cortisol-AM 10.2 6.7 - 22.6 MCG/DL Specimen Performing Laboratory Blood MAIN LAB [address] [place] [address] * AMYLASE (06/03/2017 11:28 AM) Component Value Ref Range Amylase 39 24 - 100 U/L Specimen Performing Laboratory Blood MAIN LAB [address] [place] [address] * COMPREHENSIVE METABOLIC PANEL (06/03/2017 11:28 AM) [...] questions. Specimen Performing Laboratory Blood MAIN LAB [address] [place] [address] from Last 3 Months
--- OUTSIDE RECORDS SUMMARY | 2017-08-22 10:50 | XMS REPORT | Encounter Summary ---
Author Author [facility] Organization [facility] Address Unknown Phone Unavailable Care Team Providers Care Teacher Music Name Role Phone Michael Sutton MD Unavailable Unavailable Mary Whittington MD PCP Jessica Valera Unavailable Maggie Puente Unavailable Unavailable Mary Telles APRN Unavailable Bam Ritter MD Unavailable Radha Bo LPN Unavailable Unavailable Jose Sanchez MD Unavailable Reason for Visit * Reason Comments Pain Encounter Details Date Type Department Care Team Description 06/20/2017 Telephone [facility] Abel Poe MD Pain Cancer [facility] - [facility] Exam [address] [facility] [address] [place] [address] [place] [address] [phone] Social History Tobacco Use Types Packs/Day Years [...] Maddi Cannon, RN - 06/20/2017 9:47 AM CHILDREN LIBRARIAN Pt called stating she has been sick since having he GI scope and now is experiencing pain in abdomen on right side which is opposite side of renal surgery. Pt notes her urine is dark but denies fever. Pt admits to increase stress in her life and has to go to court today for which Dr Gooden is speaking with day treatment clinician/art therapist. Instructed pt she needs to either go [...]
--- OUTSIDE RECORDS SUMMARY | 2017-08-22 10:50 | XMS REPORT | Encounter Summary ---
Author Author [facility] Organization [facility] Address Unknown Phone Unavailable Care Team Providers Care Postal Worker Name Role Phone Michael Sutton MD Unavailable Unavailable Mary Whittington MD PCP Jessica Valera Unavailable Maggie Puente Unavailable Unavailable Mary Telles APRN Unavailable Bam Ritter MD Unavailable Radha Bo LPN Unavailable Unavailable Jose Sanchez MD Unavailable Reason for Visit * Reason Comments Follow-up Phone Call Encounter Details Date Type Department Care Team Description 06/19/2017 Telephone [facility] Randy Nunez MD Follow- up Phone Call Physicians - Internal [facility] Medicine [address] [place] [address] [place] [address] Social History Tobacco Use Types [...] Arleen Leone RN - 06/19/2017 2:51 PM HOT TAR ROOFER Message back to patient regarding Dr. Nunez's response. * Telephone Encounter - Randy Nunez MD - 06/19/2017 1:00 PM HOT TAR ROOFER Yes can be done locally, please have copy sent to us. Thanks * Telephone Encounter - Arleen Leone RN - 06/19/2017 9:26 AM HOT TAR ROOFER Patient calling today to inform did have [...]
--- OUTSIDE RECORDS SUMMARY | 2017-08-22 10:51 | XMS REPORT | Encounter Summary ---
Author Author [facility] Organization [facility] Address Unknown Phone Unavailable Care Team Providers Care Locket Maker Name Role Phone Michael Sutton MD Unavailable Unavailable Mary Whittington MD PCP Jessica Valera Unavailable Maggie uPente Unavailable Unavailable Mary Telles CIRCULAR SAWYER HELPER Unavailable Bam Ritter MD Unavailable Radha Bo CUPOLA OPERATOR INSULATION Unavailable Unavailable Jose Sanchez MD Unavailable Reason for Referral * Consult, Test & Treat (Routine) Status Reason Specialty Diagnoses / Referred By Referred To Procedures Contact Contact Closed Specialty Gastroenterology Diagnoses Laura Nunez Mojtaba, Services Dea Padilla MD MD Required pancreatitis, [address] [place] [address] pancreatitis MS [address] [place], [place] type (HCC) [place] [address] History of colon [address] Phone: polyps [phone] Scheduling Instructions Prep instructions given to patient during clinic. Reason for Visit * Reason Comments Pancreatitis Nausea Vomiting Polydipsia patient feels thirsty all the time Encounter Details Date Type Department Care Team Description 06/03/2017 Office Visit [facility] Randy Nunez MD Nausea and vomiting, Physicians - Internal [address] intractability of Medicine [place] [address] vomiting not specified, [address] [place] [address] [place] [address] (Primary Dx); [phone] Microcytic anemia; Fatigue, unspecified type; Weight gain; [...] Taken Blood Pressure 129/78 06/03/2017 10:10 AM LOCAL COMPANY INTERMODAL TRUCK DRIVER Pulse 66 06/03/2017 10:10 AM LOCAL COMPANY INTERMODAL TRUCK DRIVER Temperature 36.6 C (97.8 F) 06/03/2017 10:10 AM LOCAL COMPANY INTERMODAL TRUCK DRIVER Respiratory Rate 14 06/03/2017 10:10 AM LOCAL COMPANY INTERMODAL TRUCK DRIVER Oxygen Saturation - - Inhaled Oxygen - - Concentration Weight 117.2 kg (258 lb 4.8 oz) 06/03/2017 10:10 AM LOCAL COMPANY INTERMODAL TRUCK DRIVER Height 160 cm (5' 3") 06/03/2017 10:10 AM LOCAL COMPANY INTERMODAL TRUCK DRIVER Body Mass Index 45.76 06/03/2017 10:10 AM LOCAL COMPANY INTERMODAL TRUCK DRIVER in this encounter Functional Status Functional Status [...] Randy Nunez MD - 06/03/2017 10:30 AM LOCAL COMPANY INTERMODAL TRUCK DRIVER You need to see a local Fork Lift Mechanic to review a gastroparetic diet Blood work today Schedule colonoscopy and EUS with Dr. Sanchez. Please follow your prep instructions. You will be contacted by Maggie to schedule or you may phone [phone], option 2 to schedule. Would like to see you back in approximate 3 months with Jessica Valera NP. in this encounter Progress Notes * Randy Nunez MD - 06/03/2017 10:30 AM LOCAL COMPANY INTERMODAL TRUCK DRIVER Formatting of this note may be different [...] NG/ML Specimen Performing Laboratory Blood MAIN LAB [address] [place] [address] * LIPASE (06/03/2017 11:28 AM) Component Value Ref Range Lipase 26 11 - 82 U/L Specimen Performing Laboratory Blood MAIN LAB [address] [place] [address] * AMYLASE (06/03/2017 11:28 AM) Component Value Ref Range Amylase 39 24 - 100 U/L Specimen Performing Laboratory Blood MAIN LAB [address] [place] [address] * IRON + BINDING CAPACITY + %SAT+ FERRITIN (06/03/2017 11:28 AM) Component Value Ref Range Iron 86 50 - 160 MCG/DL Iron Binding-TIBC 548 (H) 270 - 380 MCG/DL % Saturation 16 (L) 28 - 42 % Ferritin 60 10 - 200 NG/ML Specimen Performing Laboratory Blood MAIN LAB [address] [place], [place] [address] * VITAMIN B12 (06/03/2017 11:28 AM) Component Value Ref Range Vitamin B12 185 180 - 914 PG/ML Specimen Performing Laboratory Blood MAIN LAB [address] [place], [place] [id number] * TSH WITH FREE T4 REFLEX (06/03/2017 11:28 AM) Component Value Ref Range TSH 1.708 0.35 - 5.00 MCU/ML Specimen Performing Laboratory Blood MAIN LAB [address] [place], [place] [address] * CORTISOL-AM (06/03/2017 11:28 AM) Component Value Ref Range Cortisol-AM 10.2 6.7 - 22.6 MCG/DL Specimen Performing Laboratory Blood MAIN LAB [address] [place] [address] [place] [address] * COMPREHENSIVE METABOLIC PANEL (06/03/2017 11:28 AM) [...] Performing Laboratory Blood [facility] MAIN LAB [address] [place] [address] in this encounter Visit Diagnoses Diagnosis Nausea [...]
--- OUTSIDE RECORDS SUMMARY | 2017-08-22 10:51 | XMS REPORT | Encounter Summary ---
Author Author [facility] Organization [facility] Address Unknown Phone Unavailable Care Team Providers Care Marine Extension Agent Name Role Phone Michael Sutton MD Unavailable Unavailable Mary Whittington MD PCP Jessica Valera Unavailable Maggie Puente Unavailable Unavailable Mary Telles APRN Unavailable Bam Ritter MD Unavailable Radha Bo LPN Unavailable Unavailable Jose Sanchez MD Unavailable Reason for Visit * Reason Comments Results Test Encounter Details Date Type Department Care Team Description 06/06/2017 Telephone [facility] Randy Nunez MD Results ; Test Physicians - Internal [address] [facility] Medicine [place] [address] [place] [address] [place] [address] Social History Tobacco Use Types [...] Arleen Leone RN - 06/06/2017 8:47 AM PLY BANDER Patient aware of lab results along with Dr. Nunez's recommendations. Results sent to Dr. Whittington's office and patient will get with their office regarding administration of her new Vitamin B12 monthly injections. All new prescriptions have been e-scribed to patient's pharmacy. Patient aware may have to purchase Iron over the counter. * Telephone Encounter - Arleen Leone RN - 06/06/2017 8:34 AM PLY BANDER ----- Message from Randy Nunez MD sent at 06/05/2017 10:11 AM PLY BANDER ----- Laboratory evaluation is consistent with iron [...]
--- OUTSIDE RECORDS SUMMARY | 2017-08-22 10:51 | XMS REPORT | Encounter Summary ---
Author Author [facility] Organization [facility] Address Unknown Phone Unavailable Care Team Providers Care Python Developer Name Role Phone Michael Sutton MD Unavailable Unavailable Mary Whittington MD PCP Jessica Valera Unavailable Maggie Puente Unavailable Unavailable Mary Telles APRN Unavailable Bam Ritter MD Unavailable Radha Bo LPN Unavailable Unavailable Jose Sanchez MD Unavailable Encounter Details Date Type Department Care Team Description 06/03/2017 [facility] Randy Nunez MD Encounter [address] [place] [address] [address] [place] [address] [phone] Social History Tobacco Use Types Packs/Day Years [...] Specimen Performing Laboratory Blood MAIN [facility] [address] [place] [address] * LIPASE (06/03/2017 11:28 AM) Component Value Ref Range Lipase 26 11 - 82 U/L Specimen Performing Laboratory Blood MAIN [facility] [address] [place] [address] * AMYLASE (06/03/2017 11:28 AM) Component Value Ref Range Amylase 39 24 - 100 U/L Specimen Performing Laboratory Blood MAIN LAB [address] [place] [address] * IRON + BINDING CAPACITY + %SAT+ FERRITIN (06/03/2017 11:28 AM) Component Value Ref Range Iron 86 50 - 160 MCG/DL Iron Binding-TIBC 548 (H) 270 - 380 MCG/DL % Saturation 16 (L) 28 - 42 % Ferritin 60 10 - 200 NG/ML Specimen Performing Laboratory [facility] [address] [place] [address] * VITAMIN B12 (06/03/2017 11:28 AM) Component Value Ref Range Vitamin B12 185 180 - 914 PG/ML Specimen Performing Laboratory [facility] [address] [place] [address] * TSH WITH FREE T4 REFLEX (06/03/2017 11:28 AM) Component Value Ref Range TSH 1.708 0.35 - 5.00 MCU/ML Specimen Performing Laboratory Blood [facility] [address] [place] [address] * CORTISOL-AM (06/03/2017 11:28 AM) Component Value Ref Range Cortisol-AM 10.2 6.7 - 22.6 MCG/DL Specimen Performing Laboratory [facility] [address] [place] [address] * COMPREHENSIVE METABOLIC PANEL (06/03/2017 11:28 AM) [...] Performing Laboratory [facility] [address] [place] [address] in this encounter Visit Diagnoses Diagnosis Nausea and vomiting, intractability of vomiting not specified, unspecified vomiting type Fatigue, unspecified type Weight gain Abnormal weight gain Microcytic anemia Iron deficiency anemia, unspecified Chronic pancreatitis, unspecified pancreatitis type (HCC) Low vitamin D level Medication monitoring encounter Encounter for therapeutic drug monitoring
--- OUTSIDE RECORDS SUMMARY | 2017-08-22 10:51 | XMS REPORT | Encounter Summary ---
Author Author [facility] Organization [facility] Address Unknown Phone Unavailable Care Team Providers Care Gear Milling Machine Set Up Operator Name Role Phone Michael Sutton MD Unavailable Unavailable Mary Whittington MD PCP Jessica Valera Unavailable Maggie Puente Unavailable Unavailable Mary Telles APRN Unavailable Bam Ritter MD Unavailable Radha Bo LPN Unavailable Unavailable Jose Sanchez MD Unavailable Encounter Details Date Type Department Care Team Description 06/03/2017 Documentation [facility] Abel Poe MD [facility] Exam [address] [facility] [address] [place] [address] [place] [address] [phone] Social History Tobacco Use Types Packs/Day Years [...] Maddi Cannon, RN - 06/03/2017 3:37 PM ATTORNEY LAWYER Pt called stating she was seen at [facility] ER this weekend for kidney infection and [...]
--- OUTSIDE RECORDS SUMMARY | 2017-08-22 10:51 | XMS REPORT | Encounter Summary ---
Author Author [facility] Organization [facility] Address Unknown Phone Unavailable Care Team Providers Care Leather Parts Matcher Name Role Phone Michael Sutton MD Unavailable Unavailable Mary Whittington MD PCP Jessica Valera Unavailable Maggie Puente Unavailable Unavailable Mary Telles APRN Unavailable Bam Ritter MD Unavailable Radha Bo LPN Unavailable Unavailable Tyesha Sanchez MD Unavailable Encounter Details Date Type Department Care Team Description 06/18/2017 [facility] Tyesha Sanchez MD Other chronic Encounter [address] pancreatitis (HCC) [place] [address] [address] [place] [address] [phone] Social History Tobacco Use Types Packs/Day Years [...] Component Value Ref Range PATHOLOGY REPORT [email or web address] Department of Pathology and Laboratory Medicine [address] [place] [address] Surgical Pathology Office: [phone] SURGICAL PATHOLOGY REPORT NAME: JAYLYN DELGADO SURG PATH #: [id number] MR #: [id number] SPECIMEN CLASS: SR BILLING #: [id number] ALT ID #: LOCATION: [facility] DATE OF PROCEDURE: 06/18/2017 AGE: 32 [...]
--- OUTSIDE RECORDS SUMMARY | 2017-08-22 10:51 | XMS REPORT | Encounter Summary ---
Author Author [facility] Organization [facility] Address Unknown Phone Unavailable Care Team Providers Care Sr Risk Management Consultant Name Role Phone Michael Sutton MD Unavailable Unavailable Mary Whittington MD PCP Jessica Valera Unavailable Maggie Puente Unavailable Unavailable Mary Telles APRN Unavailable Bam Ritter MD Unavailable Radha Bo LPN Unavailable Unavailable Jose Sanchez MD Unavailable Reason for Visit * Reason Comments Appointment Request Upper EUS/Colonoscopy Encounter Details Date Type Department Care Team Description 06/06/2017 Telephone [facility] Maggie Puente Appointment Request Physicians - Internal (Upper EUS/Colonoscopy) Medicine [address] FLOOR POD [address] [facility] [place] [address] Social History Tobacco Use Types [...] - Maggie Puente - 06/07/2017 8:32 AM CARE TRANSITIONS NURSE Scheduled Upper EUS/Colonoscopy at [facility] with Dr Sanchez on 06/18/17. Verbal instructions given over the phone, packet e-mailed to [email or web address]. Advised patient to contact the prescribing provider for any blood thinning medication and/or aspirin recommendations 1 week prior to having procedure. Patient verbalized understanding. * Telephone Encounter - Maggie Puente - 06/07/2017 8:28 AM CARE TRANSITIONS NURSE Left generic message for patient to return call to schedule Upper EUS/ Colonoscopy. * Telephone Encounter - Maggie Puente - 06/06/2017 2:36 PM CARE TRANSITIONS NURSE Left generic message for patient to return call to schedule Upper EUS/ Colonoscopy. in this encounter Plan of Treatment Date Type Specialty Care Team Description 05/06/2017 Procedure Pass Oncology 05/06/2017 Procedure Pass Oncology as of this encounter Visit Diagnoses Not on filein this encounter
[2017-08-22 11:00] VITALS: BP 112/71
[2017-08-22] MEDS ORDERED: LACTATED RINGERS 1,000 ML IV PRN (11:31)
[2017-08-22] MEDS ORDERED: CLINDAMYCIN 600 MG/50 ML IVPB 50 ML IV ONE (11:45)
[2017-08-22] MEDS ORDERED: LIDOCAINE PF 2% 5 ML (XYLOCAINE) VIAL ONE (11:48)
[2017-08-22] MEDS ORDERED: proPOfol 200 MG/20 ML (DIPRIVAN) VIAL IV ONE (11:48)
[2017-08-22] MEDS ORDERED: ROCURONIUM 10 MG/ML 5 ML SYRINGE IV ONE (11:48)
[2017-08-22] MEDS ORDERED: ONDANSETRON 4 MG/2 ML (SDV) Z0FRAN ONE ×2 (11:48→11:53)
[2017-08-22] MEDS ORDERED: SUFentanil CITRATE INJ 50MCG/ML 1ML AMP IV ONE (11:48)
[2017-08-22] MEDS ORDERED: DEXAMETHASONE 10 MG/ML (DECADRON) 1 ML VIAL ONE (11:48)
[2017-08-22] MEDS ORDERED: MIDAZOLAM 2 MG/2 ML (VERSED) VIAL ONE (11:49)
[2017-08-22] MEDS ORDERED: FAMOTIDINE 20MG/2ML IV (PEPCID) ONE (11:53)
[2017-08-22] MEDS ORDERED: SCOPOLAMINE 1.5 MG (TRANSDERM-SCOP) PATCH ONE (11:53)
--- NOTE | 2017-08-22 12:04 | Progress Note-Pre Operative ---
Pre-Operative Progress Note H&P Reviewed The H&P was reviewed, patient examined and no changes noted. Date Seen by Provider: Aug 22, 2017 Time Seen by Provider: 12:00 Date H&P Reviewed: Aug 22, 2017 Time H&P Reviewed: 12:00 Pre-Operative Diagnosis: symptomatic reducible ventral abd inc hernia. YUNIOR LYLES MD Aug 22, 2017 12:04 pm
--- OUTSIDE RECORDS SUMMARY | 2017-08-22 12:13 | XMS REPORT | Continuity of Care Document ---
Author Author [facility] Address Unknown Phone Unavailable Allergies Active Description Code Type Severity Reaction Onset Reported/Identified Relationship to Patient Clinical Status Yes Demerol Drug Allergy N/A N/A 08/04/2008 Yes fentanyl Drug Allergy N/A N/A 08/04/2008 Yes Penicillins Drug Allergy N/A N/A 08/04/2008 Yes Demerol Drug Allergy 08/04/2008 Yes fentanyl Drug Allergy 08/04/2008 Yes Penicillins Drug Allergy 08/04/2008 Yes fentanyl [id number] Drug Allergy Unknown N/A 05/23/2016 Yes meperidine [id number] Drug Allergy Unknown N/A 08/20/2017 Yes penicillin G [id number] Drug Allergy Unknown N/A 08/20/2017 Medications There is no data. Problems Date [...] CARMEN GIBBS MD N 784.0 Headache 08/04/2008 CARMNE GIBBS MD N 577.9 PANCREATITIS 08/04/2008 CARMEN [...] DO, EMIL K 784.0 Headache 08/04/2008 KIM FOOD SCIENTIST, OSMAN T 577.9 PANCREATITIS 08/04/2008 KIM FOOD SCIENTIST, OSMAN T 780.79 FATIGUE 08/04/2008 KIM FOOD SCIENTIST OSMAN T 784.0 Headache 08/04/2008 ROLON DO, EMIL K 577.9 PANCREATITIS 08/04/2008 ROLON DO, EMIL K 780.79 FATIGUE 08/04/2008 ROLON DO, EMIL K 784.0 Headache 08/04/2008 ROLON DO, EMIL K 577.9 PANCREATITIS 08/04/2008 ROLON DO, EMIL K 780.79 FATIGUE 08/04/2008 ROLON DO, EMIL K 784.0 Headache 08/04/2008 LUIS ALFREDO FOOD SCIENTIST, BRENNA R 577.9 PANCREATITIS 08/04/2008 LUIS ALFREDO FOOD SCIENTIST, BRENNA R 780.79 FATIGUE 08/04/2008 LUIS ALFREDO FOOD SCIENTIST, BRENNA R 784.0 Headache 08/04/2008 MAD FOOD SCIENTIST, ANSON L 577.9 PANCREATITIS 08/04/2008 MAD FOOD SCIENTIST, ANSON L 780.79 FATIGUE 08/04/2008 MAD FOOD SCIENTIST, ANSON L 784.0 Headache 08/04/2008 LUIS ALFREDO YUN, BRENNA R 577.9 PANCREATITIS 08/04/2008 LUIS ALFREDO FOOD SCIENTIST, BRENNA R 780.79 FATIGUE 08/04/2008 LUIS ALFREDO YUN, BRENNA R 784.0 Headache 08/04/2008 SAI PARISH, CARMEN N 577.9 PANCREATITIS 08/04/2008 CARMEN GIBBS MD N 780.79 FATIGUE 08/04/2008 CARMEN GIBBS MD N 784.0 Headache 08/04/2008 ROLON DO, EMIL K 577.9 PANCREATITIS 08/04/2008 ROLON DO, EMIL K 780.79 FATIGUE 08/04/2008 ROLON DO, EMIL K 784.0 Headache 08/04/2008 MICHELINE FOOD SCIENTIST, RAQUEL R 577.9 PANCREATITIS 08/04/2008 MICHELINE FOOD SCIENTIST, RAQUEL R 780.79 FATIGUE 08/04/2008 MICHELINE FOOD SCIENTIST, RAQUEL R 784.0 Headache 08/04/2008 CARMEN GIBBS MD N 577.9 PANCREATITIS 08/04/2008 CARMEN GIBBS MD N 780.79 FATIGUE 08/04/2008 CARMEN GIBBS MD N 784.0 Headache 08/04/2008 LOBATO FOOD SCIENTIST, BRENNA R 577.9 PANCREATITIS 08/04/2008 LOBATO FOOD SCIENTIST, BRENNA R 780.79 FATIGUE 08/04/2008 LOBATO FOOD SCIENTIST, BRENNA R 784.0 Headache 08/04/2008 MICHELINE FOOD SCIENTIST, RAQUEL R 577.9 PANCREATITIS 08/04/2008 MICHELINE FOOD SCIENTIST, RAQUEL R 780.79 FATIGUE 08/04/2008 MICHELINE FOOD SCIENTIST, RAQUEL R 784.0 Headache 08/04/2008 CARMEN GIBBS MD N 577.9 PANCREATITIS 08/04/2008 CARMEN GIBBS MD N 780.79 FATIGUE 08/04/2008 CARMEN GIBBS MD N 784.0 Headache 08/04/2008 MADL FOOD SCIENTIST, ANSON L 577.9 PANCREATITIS 08/04/2008 MADL FOOD SCIENTIST, ANSON L 780.79 FATIGUE 08/04/2008 MADL FOOD SCIENTIST, ANSON L 784.0 Headache 08/04/2008 MADL FOOD SCIENTIST, ANSON L 577.9 PANCREATITIS 08/04/2008 MADL FOOD SCIENTIST, ANSON L 780.79 FATIGUE 08/04/2008 MADL FOOD SCIENTIST, ANSON L 784.0 Headache 08/04/2008 MICHELINE FOOD SCIENTIST, RAQUEL R 577.9 PANCREATITIS 08/04/2008 MICHELINE FOOD SCIENTIST, RAQUEL R 780.79 FATIGUE 08/04/2008 MICHELINE FOOD SCIENTIST, RAQUEL R 784.0 Headache 08/04/2008 WHITE DDS, [...] DO, EMIL K 784.0 Headache 08/04/2008 MADL FOOD SCIENTIST, ANSON L 577.9 PANCREATITIS 08/04/2008 MADL FOOD SCIENTIST, ANSON L 780.79 FATIGUE 08/04/2008 MADL FOOD SCIENTIST, ANSON L 784.0 Headache 08/04/2008 CARMEN GIBBS MD N 577.9 PANCREATITIS 08/04/2008 CARMEN GIBBS MD N 780.79 FATIGUE 08/04/2008 CARMEN GIBBS MD N 784.0 Headache 08/04/2008 CARMEN GIBBS MD N 577.9 PANCREATITIS 08/04/2008 CARMEN GIBBS MD N 780.79 FATIGUE 08/04/2008 CARMEN GIBBS MD N 784.0 Headache 08/04/2008 MADL FOOD SCIENTIST, ANSON L 577.9 PANCREATITIS 08/04/2008 MADL FOOD SCIENTIST, ANSON L 780.79 FATIGUE 08/04/2008 MADL FOOD SCIENTIST, ANSON L 784.0 Headache 08/04/2008 GONZALES GAMING [...] BAUMANN, BRENNA R 493.90 ASTHMA 03/31/2009 MICHELINE FOOD SCIENTIST, RAQUEL R 493.90 ASTHMA 03/31/2009 CARMEN GIBBS MD N 493.90 ASTHMA 03/31/2009 MADL FOOD SCIENTIST, ANSON L 493.90 ASTHMA 03/31/2009 MADL FOOD SCIENTIST, ANSON L 493.90 ASTHMA 03/31/2009 MICHELINE FOOD SCIENTIST, RAQUEL R 493.90 ASTHMA 03/31/2009 JOSH VILLAVICENCIO, ELLIOT Alston 493.90 ASTHMA 03/31/2009 SAI PARISH, CARMEN N 493.90 ASTHMA 03/31/2009 SUDHIR ROLON DOA K 493.90 ASTHMA 03/31/2009 MADBenji FOOD SCIENTIST, ANSON L 493.90 ASTHMA 03/31/2009 CARMEN GIBBS MD N 493.90 ASTHMA 03/31/2009 CARMEN GIBBS MD N 493.90 ASTHMA 03/31/2009 MADL FOOD SCIENTIST, ANSON L 493.90 ASTHMA 03/31/2009 SUDHIR ROLON [...] Screening Examination For Pulmonary Tuberculosis 04/25/2009 SHERI FOOD SCIENTIST, ANSON L V74.1 Screening Examination For Pulmonary [...] N 112.0 Candidiasis Oral Thrush 04/26/2009 MADL FOOD SCIENTIST, ANSON L 112.0 Candidiasis Oral Thrush 04/26/2009 MADL FOOD SCIENTIST, ANSON L 112.0 Candidiasis Oral Thrush 04/26/2009 [...] 07/14/2009 ELLY DOUGLAS MD 278.00 OBESITY 07/14/2009 CAMREN GIBBS MD 278.00 OBESITY 07/14/2009 CARMEN GIBBS [...] APRN 597.80 Urethritis, Unspecified 09/05/2009 ROLON DO, EIML K 597.80 Urethritis, Unspecified 09/05/2009 ROLON DO, EMIL K 597.80 Urethritis, Unspecified 09/05/2009 BRENNA LOBATO APRN R 597.80 Urethritis, Unspecified 09/05/2009 ANSON WADE APRN 597.80 Urethritis, Unspecified 09/05/2009 LOBATO FOOD SCIENTIST, BRENNA R 597.80 Urethritis, Unspecified 09/05/2009 SAI [place], CARMEN N 597.80 Urethritis, Unspecified 09/05/2009 ROLON DO, EMIL K 597.80 Urethritis, Unspecified 09/05/2009 MICHELINE FOOD SCIENTIST, RAQUEL R 597.80 Urethritis, Unspecified 09/05/2009 SAI PAR[place], CARMEN N 597.80 Urethritis, Unspecified 09/05/2009 CRISTINO LOBATO APRNIA R 597.80 Urethritis, Unspecified 09/05/2009 MICHELINE FOOD SCIENTIST, RAQUEL R 597.80 Urethritis, Unspecified 09/05/2009 SAI [place], CARMEN N 597.80 Urethritis, Unspecified 09/05/2009 MADL FOOD SCIENTIST, ANSON L 597.80 Urethritis, Unspecified 09/05/2009 MADL FOOD SCIENTIST, ANSON L 597.80 Urethritis, Unspecified 09/05/2009 MICHELINE FOOD SCIENTIST, RAQUEL R 597.80 Urethritis, Unspecified 09/05/2009 JOSH VILLAVICENCIO, ELLIOT Alston 597.80 Urethritis, Unspecified 09/05/2009 SAI [place], CARMEN N 597.80 Urethritis, Unspecified 09/05/2009 GONZALES GAMING, EMIL K 597.80 Urethritis, Unspecified 09/05/2009 MADBenji FOOD SCIENTIST, ANSON L 597.80 Urethritis, Unspecified 09/05/2009 SAI [place], CARMEN N 597.80 Urethritis, Unspecified 09/05/2009 SAI [place], CARMEN N 597.80 Urethritis, Unspecified 09/05/2009 MADL FOOD SCIENTIST, ANSON L 597.80 Urethritis, Unspecified 09/05/2009 ROLON [...] Pain In Joint, Lower Leg 09/24/2009 MADL FOOD SCIENTIST, ANSON L 719.46 Pain In Joint, Lower Leg 09/24/2009 MADL FOOD SCIENTIST, ANSON L 719.46 Pain In Joint, Lower [...] GIBBS MD 717.7 Chondromalacia Of Patella 10/06/2009 SOMAN ALVAREZ APRN 717.7 Chondromalacia Of Patella 10/06/2009 [...] BAUMANN, ANSON L 733.92 Chondromalacia 11/03/2009 CINTHIA WAED APRNWNYA L 733.92 Chondromalacia 11/03/2009 MALACHI TOBIAS [...] GIBBS MD N 704.8 Folliculitis 12/20/2009 MADBenji FOOD SCIENTIST, ANSON L 704.8 Folliculitis 12/20/2009 JOSE FRANCISCOL [...] N 709.9 Dermatology - Non-infectious 02/03/2010 MADL FOOD SCIENTIST, ANSON L 709.9 Dermatology - Non-infectious 02/03/2010 MADL FOOD SCIENTIST, ANSON L 709.9 Dermatology - Non-infectious 02/03/2010 MICHELINE FOOD SCIENTIST, RAQUEL R 709.9 Dermatology - Non-infectious 02/03/2010 JOSH JETERS, ELLIOT J 709.9 Dermatology - Non-infectious 02/03/2010 SAI PARISH, CARMEN N 709.9 Dermatology - Non-infectious 02/03/2010 ROLON , EMIL K 709.9 Dermatology - Non-infectious 02/03/2010 MADBenji FOOD SCIENTIST, ANSON L 709.9 Dermatology - Non-infectious 02/03/2010 SAI PARISH, CARMEN N 709.9 Dermatology - Non-infectious 02/03/2010 SAI [place], CARMEN N 709.9 Dermatology - Non-infectious 02/03/2010 SHERI FOOD SCIENTIST, ANSON L 709.9 Dermatology - Non-infectious 02/03/2010 [...] BAUMANN, BRENNA R 276.5 DEHYDRATION 02/08/2010 MADL FOOD SCIENTIST, ANSON L 276.5 DEHYDRATION 02/08/2010 LUIS ALFREDO BAUMANN, BRENNA R 276.5 DEHYDRATION 02/08/2010 CARMEN GIBBS MD N 276.5 DEHYDRATION 02/08/2010 ROLON DO, EMIL K 276.5 DEHYDRATION 02/08/2010 MICHELINE BAUMANN, RAQUEL R 276.5 DEHYDRATION 02/08/2010 CARMEN GIBBS MD N 276.5 DEHYDRATION 02/08/2010 CRISTINO LOBATO APRNIA R 276.5 DEHYDRATION 02/08/2010 MICHELINE BAUMANN, RAQUEL R 276.5 DEHYDRATION 02/08/2010 CARMEN GIBBS MD N 276.5 DEHYDRATION 02/08/2010 SHERI FOOD SCIENTIST, ANSNO L 276.5 DEHYDRATION 02/08/2010 MADBenji FOOD SCIENTIST, ANSON L 276.5 DEHYDRATION 02/08/2010 MICHELINE FOOD SCIENTIST, RAQUEL R 276.5 DEHYDRATION 02/08/2010 ELLIOT MORENO [...] EMIL K 788.31 Urge Incontinence 05/22/2010 MICHELINE FOOD SCIENTIST, RAQUEL R 788.31 Urge Incontinence 05/22/2010 CARMEN GIBBS MD N 788.31 Urge Incontinence 05/22/2010 CRISTINO LOBATO APRNIA R 788.31 Urge Incontinence 05/22/2010 MICHELINE FOOD SCIENTIST, RAQUEL R 788.31 Urge Incontinence 05/22/2010 CARMEN GIBBS MD N 788.31 Urge Incontinence 05/22/2010 MADL FOOD SCIENTIST, ANSON L 788.31 Urge Incontinence 05/22/2010 MADL FOOD SCIENTIST, ANSON L 788.31 Urge Incontinence 05/22/2010 MICHELINE [...] DO, EMIL K 706.8 Xerosis 08/22/2010 KIM FOOD SCIENTIST, OSMAN T 272.4 HYPERLIPIDEMIA 08/22/2010 KIM FOOD SCIENTIST OSMAN T 706.8 Xerosis 08/22/2010 ROLON DO, EMIL K 272.4 HYPERLIPIDEMIA 08/22/2010 ROLON DO, EMIL K 706.8 Xerosis 08/22/2010 ROLON DO, EMIL K 272.4 HYPERLIPIDEMIA 08/22/2010 ROLON DO, EMIL K 706.8 Xerosis 08/22/2010 LUIS ALFREDO FOOD SCIENTIST, BRENNA R 272.4 HYPERLIPIDEMIA 08/22/2010 LOBATO FOOD SCIENTIST, BRENNA R 706.8 Xerosis 08/22/2010 MADL FOOD SCIENTIST, ANSON L 272.4 HYPERLIPIDEMIA 08/22/2010 MADL FOOD SCIENTIST, ANSON L 706.8 Xerosis 08/22/2010 LUIS ALFREDO [...] GIBBS MD N 706.8 Xerosis 08/22/2010 MADL FOOD SCIENTIST, ANSON L 272.4 HYPERLIPIDEMIA 08/22/2010 MADL FOOD SCIENTIST, ANSON L 706.8 Xerosis 08/22/2010 MADL FOOD SCIENTIST, ANSON L 272.4 HYPERLIPIDEMIA 08/22/2010 MADL FOOD SCIENTIST, ANSON L 706.8 Xerosis 08/22/2010 MICHELINE FOOD SCIENTIST, RAQUEL R 272.4 HYPERLIPIDEMIA 08/22/2010 MICHELINE FOOD SCIENTIST, RAQUEL R 706.8 Xerosis 08/22/2010 WHITE DDS, ELLIOT J 272.4 HYPERLIPIDEMIA 08/22/2010 WHITE DDS, ELLIOT J 706.8 Xerosis 08/22/2010 CARMEN GIBBS MD N 272.4 HYPERLIPIDEMIA 08/22/2010 CARMEN GIBBS MD N 706.8 Xerosis 08/22/2010 ROLON DO, MEIL K 272.4 HYPERLIPIDEMIA 08/22/2010 ROLON DO, EMIL K 706.8 Xerosis 08/22/2010 MADL FOOD SCIENTIST, ANSON L 272.4 HYPERLIPIDEMIA 08/22/2010 MADL FOOD SCIENTIST, ANSON L 706.8 Xerosis 08/22/2010 CARMEN GIBBS MD N 272.4 HYPERLIPIDEMIA 08/22/2010 CARMEN GIBBS MD N 706.8 Xerosis 08/22/2010 CARMEN GIBBS MD N 272.4 HYPERLIPIDEMIA 08/22/2010 CARMEN GIBBS MD N 706.8 X[facility]osis 08/22/2010 [facility] ANSON L 272.4 HYPERLIPIDEMIA 08/22/2010 MADL FOOD SCIENTIST, ANSON L 706.8 Xerosis 08/22/2010 ROLON DO, [...] K 787.01 Nausea With Vomiting 09/20/2010 MALACHI TOBAIS APRNINA R 787.01 Nausea With Vomiting 09/20/2010 [...] ALVAREZ APRN T 577.1 CHRONIC PANCREATITIS 09/28/2010 RLOON DO, EMIL K 577.1 CHRONIC PANCREATITIS 09/28/2010 ROLON DO, EMIL K 577.1 CHRONIC PANCREATITIS 09/28/2010 LUIS ALFREDO BAUMANN BRENNA R 577.1 CHRONIC PANCREATITIS 09/28/2010 SHERI FOOD SCIENTIST, ANSON L 577.1 CHRONIC PANCREATITIS 09/28/2010 LUIS [...] GIBBS MD 577.1 CHRONIC PANCREATITIS 09/28/2010 SHERI FOOD SCIENTIST, ANSON L 577.1 CHRONIC PANCREATITIS 09/28/2010 JOSE FRANCISCOL FOOD SCIENTIST, ANSON L 577.1 CHRONIC PANCREATITIS 09/28/2010 MICHELINE [...] 789.01 Abdominal Pain Right Upper Quadrant 12/27/2010 EMLI ROLON DO K 599.70 Hematuria Unspecified 12/27/2010 [...] Abdominal Pain Right Upper Quadrant 12/27/2010 SHERI FOOD SCIENTIST, ANSON L 599.70 Hematuria Unspecified 12/27/2010 MADBenji FOOD SCIENTIST, ANSON L 789.01 Abdominal Pain Right Upper Quadrant 12/27/2010 SHERI BAUMANN, ANSON L 599.70 Hematuria Unspecified 12/27/2010 SHERI FOOD SCIENTIST, ANSON L 789.01 Abdominal Pain Right Upper [...] APRNWNYA L 599.70 Hematuria Unspecified 12/27/2010 MADL FOOD SCIENTIST, ANSON L 789.01 Abdominal Pain Right Upper Quadrant 12/27/2010 CARMEN GIBBS MD N 599.70 Hematuria Unspecified 12/27/2010 CARMEN GIBBS MD N 789.01 Abdominal Pain Right Upper Quadrant 12/27/2010 CARMEN GIBBS MD N 599.70 Hematuria Unspecified 12/27/2010 CARMEN GIBBS MD 789.01 Abdominal Pain Right Upper Quadrant 12/27/2010 MADL FOOD SCIENTIST, ANSON L 599.70 Hematuria Unspecified 12/27/2010 MADL FOOD SCIENTIST, ANSON L 789.01 Abdominal Pain Right Upper [...] R 786.52 Chest Wall Pain 01/11/2011 MADL FOOD SCIENTIST, ANSON L 786.52 Chest Wall Pain 01/11/2011 [...] MD 786.52 Chest Wall Pain 01/11/2011 SHERI FOOD SCIENTIST, ANSON L 786.52 Chest Wall Pain 01/11/2011 SHERI FOOD SCIENTIST, ANSON L 786.52 Chest Wall Pain 01/11/2011 MICHELINE BAUMANN RAQUEL R 786.52 Chest Wall Pain 01/11/2011 WHITE DDS, ELLIOT J 786.52 Chest Wall Pain 01/11/2011 CARMEN GIBBS MD 786.52 Chest Wall Pain 01/11/2011 ROLON DO, EMIL K 786.52 Chest Wall Pain 01/11/2011 MADBenji FOOD SCIENTIST, ANSON L 786.52 Chest Wall Pain 01/11/2011 CARMEN GIBBS MD 786.52 Chest Wall Pain 01/11/2011 CARMEN GIBBS MD 786.52 Chest Wall Pain 01/11/2011 MADL FOOD SCIENTIST, ANSON L 786.52 Chest Wall Pain 01/11/2011 [...] APRNIA R 780.52 INSOMNIA UNSPECIFIED 01/15/2011 MADBenji FOOD SCIENTISTLETICIA ChristieA L 564.00 Constipation 01/15/2011 JOSE FRANCISCO FOOD SCIENTIST, ANSON L 780.52 INSOMNIA UNSPECIFIED 01/15/2011 CRISTINO [...] GIBBS MD 780.52 INSOMNIA UNSPECIFIED 01/15/2011 MADL FOOD SCIENTIST, ANSON L 564.00 Constipation 01/15/2011 MADL FOOD SCIENTIST, ANSON L 780.52 INSOMNIA UNSPECIFIED 01/15/2011 MADL FOOD SCIENTIST, ANSON L 564.00 Constipation 01/15/2011 MADL FOOD SCIENTIST, ANSON L 780.52 INSOMNIA UNSPECIFIED 01/15/2011 MICHELINE FOOD SCIENTIST, RAQUEL R 564.00 Constipation 01/15/2011 MICHELINE FOOD SCIENTIST, RAQUEL R 780.52 INSOMNIA UNSPECIFIED 01/15/2011 WHITE DDS, ELLIOT J 564.00 Constipation 01/15/2011 WHITE DDS, ELLIOT J 780.52 INSOMNIA UNSPECIFIED 01/15/2011 CARMEN GIBBS MD N 564.00 Constipation 01/15/2011 CARMEN GIBBS MD 780.52 INSOMNIA UNSPECIFIED 01/15/2011 SUDHIR ROLON DOA K 564.00 Constipation 01/15/2011 SUDHIR ROLON DOA K 780.52 INSOMNIA UNSPECIFIED 01/15/2011 MADL FOOD SCIENTIST, ANSON L 564.00 Constipation 01/15/2011 MADL FOOD SCIENTIST, ANSON L 780.52 INSOMNIA UNSPECIFIED 01/15/2011 CARMEN GIBBS MD N 564.00 Constipation 01/15/2011 CARMEN GIBBS MD 780.52 INSOMNIA UNSPECIFIED 01/15/2011 CARMEN GIBBS MD N 564.00 Constipation 01/15/2011 CARMEN GIBBS MD 780.52 INSOMNIA UNSPECIFIED 01/15/2011 MADL FOOD SCIENTIST, ANSON L 564.00 Constipation 01/15/2011 MADL FOOD SCIENTIST, ANSON L 780.52 INSOMNIA UNSPECIFIED 01/15/2011 ROLON DO EMIL K 564.00 Constipation 01/15/2011 ROLON DO EMIL K 780.52 INSOMNIA UNSPECIFIED 02/02/2011 MUOGHALU DDS, REGINO N 401.1 HYPERTENSION, BENIGN ESSENTIAL 02/02/2011 BONITAU DDSREGINO N V17.49 FAM HX HYPERTENSION 02/02/2011 401.1 HYPERTENSION, BENIGN ESSENTIAL 02/02/2011 V17.49 FAM HX HYPERTENSION 02/02/2011 LOBATO FOOD SCIENTIST, BRENNA R 401.1 HYPERTENSION, BENIGN ESSENTIAL 02/02/2011 [...] R V17.49 FAM HX HYPERTENSION 02/02/2011 MADL FOOD SCIENTIST, ANSON L 401.1 HYPERTENSION, BENIGN ESSENTIAL 02/02/2011 [...] MD V17.49 FAM HX HYPERTENSION 02/02/2011 MADL FOOD SCIENTIST, ANSON L 401.1 HYPERTENSION, BENIGN ESSENTIAL 02/02/2011 MADL FOOD SCIENTIST, ANSON L V17.49 FAM HX HYPERTENSION 02/02/2011 MADL FOOD SCIENTIST, ANSON L 401.1 HYPERTENSION, BENIGN ESSENTIAL 02/02/2011 MADL FOOD SCIENTIST, ANSON L V17.49 FAM HX HYPERTENSION 02/02/2011 MICHELINE FOOD SCIENTIST, RAQUEL R 401.1 HYPERTENSION, BENIGN ESSENTIAL 02/02/2011 MICHELINE FOOD SCIENTIST, RAQUEL R V17.49 FAM HX HYPERTENSION 02/02/2011 WHITE DDS, ELLIOT J 401.1 HYPERTENSION, BENIGN ESSENTIAL 02/02/2011 WHITE DDS, ELLIOT J V17.49 FAM HX HYPERTENSION 02/02/2011 CARMEN GIBBS MD N 401.1 HYPERTENSION, BENIGN ESSENTIAL 02/02/2011 CARMEN GIBBS MD N V17.49 FAM HX HYPERTENSION 02/02/2011 ROLON DO, EMIL K 401.1 HYPERTENSION, BENIGN ESSENTIAL 02/02/2011 ROLON DO, EMIL K V17.49 FAM HX HYPERTENSION 02/02/2011 [facility] ANSON L 401.1 HYPERTENSION, BENIGN ESSENTIAL 02/02/2011 [facility] FOOD SCIENTIST, ANSON L V17.49 FAM HX HYPERTENSION 02/02/2011 CARMEN GIBBS MD N 401.1 HYPERTENSION, BENIGN ESSENTIAL 02/02/2011 CARMEN GIBBS MD N V17.49 FAM HX HYPERTENSION 02/02/2011 CARMEN GIBBS MD N 401.1 HYPERTENSION, BENIGN ESSENTIAL 02/02/2011 CARMEN GIBBS MD N V17.49 FAM HX HYPERTENSION 02/02/2011 [facility] FOOD SCIENTIST, ANSON L 401.1 HYPERTENSION, BENIGN ESSENTIAL 02/02/2011 [facility] FOOD SCIENTIST, ANSON L V17.49 FAM HX HYPERTENSION 02/02/2011 [...] 386.11 Vertigo- Benign Paroxysmal Positional 03/28/2011 MADL FOOD SCIENTIST, ANSON L 386.11 Vertigo- Benign Paroxysmal Positional 03/28/2011 MADL FOOD SCIENTIST, ANSON L 386.11 Vertigo- Benign Paroxysmal Positional 03/28/2011 MICHELIEN BAUMANN RAQUEL R 386.11 Vertigo- Benign Paroxysmal Positional 03/28/2011 JOSH VILLAVICENCIO, ELLIOT J 386.11 Vertigo- Benign Paroxysmal Positional 03/28/2011 CARMEN GIBBS MD N 386.11 Vertigo- Benign Paroxysmal Positional 03/28/2011 ROLON DO, EMIL K 386.11 Vertigo- Benign Paroxysmal Positional 03/28/2011 MADL FOOD SCIENTIST, ANSON L 386.11 Vertigo- Benign Paroxysmal Positional 03/28/2011 CARMEN GIBBS MD N 386.11 Vertigo- Benign Paroxysmal Positional 03/28/2011 CARMEN GIBBS MD N 386.11 Vertigo- Benign Paroxysmal Positional 03/28/2011 MADL FOOD SCIENTIST, ANSON L 386.11 Vertigo- Benign Paroxysmal Positional [...] (3 Yrs And Above, Im) 04/12/2011 LOBATO FOOD SCIENTIST, BRENNA R 892.0 Open Wound Of Foot Except Toe(s) Alone Without Complication 04/12/2011 LOBATO FOOD SCIENTIST, BRENNA R 917.8 Other And Unspecified Superficial Injury Of Foot And Toes Without Infection 04/12/2011 LOBATO FOOD SCIENTIST, BRENNA R V04.81 Flu Dx (3 Yrs And Above, Im) 04/12/2011 MADL FOOD SCIENTIST, ANSON L 892.0 Open Wound Of Foot Except Toe(s) Alone Without Complication 04/12/2011 MADL FOOD SCIENTIST, ANSON L 917.8 Other And Unspecified Superficial Injury Of Foot And Toes Without Infection 04/12/2011 MADL FOOD SCIENTIST, ANSON L V04.81 Flu Dx (3 Yrs And Above, Im) 04/12/2011 LOBATO FOOD SCIENTIST, BRENNA R 892.0 Open Wound Of Foot Except Toe(s) Alone Without Complication 04/12/2011 LOBATO FOOD SCIENTIST, BRENNA R 917.8 Other And Unspecified Superficial Injury Of Foot And Toes Without Infection 04/12/2011 LUIS ALFREDO FOOD SCIENTIST, BRENNA R V04.81 Flu Dx (3 Yrs [...] Of Foot And Toes Without Infection 04/12/2011 CARMNE GIBBS MD V04.81 Flu Dx (3 Yrs And Above, Im) 04/12/2011 BRENNA LOBATO APRN R 892.0 Open Wound Of Foot Except Toe(s) Alone Without Complication 04/12/2011 CRISTNIO LOBATO APRNIA R 917.8 Other And Unspecified Superficial Injury Of Foot And Toes Without Infection 04/12/2011 BRENNA LOBATO APRN R V04.81 Flu Dx (3 Yrs And Above, Im) 04/12/2011 MALACHI TOBIAS APRNINA R 892.0 Open Wound Of Foot Except Toe(s) Alone Without Complication 04/12/2011 MALACHI TOBIAS APRNINA R 917.8 Other And Unspecified Superficial Injury Of Foot And Toes Without Infection 04/12/2011 MICHELINE FOOD SCIENTIST, RAQUEL R V04.81 Flu Dx (3 Yrs And Above, Im) 04/12/2011 CARMEN GIBBS MD N 892.0 Open Wound Of Foot Except Toe(s) Alone Without Complication 04/12/2011 CARMEN GIBBS MD N 917.8 Other And Unspecified Superficial Injury Of Foot And Toes Without Infection 04/12/2011 CARMEN GIBBS MD V04.81 Flu Dx (3 Yrs And Above, Im) 04/12/2011 MADL FOOD SCIENTIST, ANSON L 892.0 Open Wound Of Foot Except Toe(s) Alone Without Complication 04/12/2011 MADL FOOD SCIENTIST, ANSON L 917.8 Other And Unspecified Superficial Injury Of Foot And Toes Without Infection 04/12/2011 MADL FOOD SCIENTIST, ANSON L V04.81 Flu Dx (3 Yrs And Above, Im) 04/12/2011 MADL FOOD SCIENTIST, ANSON L 892.0 Open Wound Of Foot Except Toe(s) Alone Without Complication 04/12/2011 MADL FOOD SCIENTIST, ANSON L 917.8 Other And Unspecified Superficial Injury Of Foot And Toes Without Infection 04/12/2011 MADL FOOD SCIENTIST, ANSON L V04.81 Flu Dx (3 Yrs And Above, Im) 04/12/2011 MICHELINE FOOD SCIENTIST, RAQUEL R 892.0 Open Wound Of Foot Except Toe(s) Alone Without Complication 04/12/2011 MICHELINE FOOD SCIENTIST, RAQUEL R 917.8 Other And Unspecified Superficial [...] (3 Yrs And Above, Im) 04/12/2011 MADL FOOD SCIENTIST, ANSON L 892.0 Open Wound Of Foot Except Toe(s) Alone Without Complication 04/12/2011 MADL FOOD SCIENTIST, ANSON L 917.8 Other And Unspecified Superficial Injury Of Foot And Toes Without Infection 04/12/2011 MADL FOOD SCIENTIST, ANSON L V04.81 Flu Dx (3 Yrs [...] (3 Yrs And Above, Im) 04/12/2011 MADBenji FOOD SCIENTIST, ANSON L 892.0 Open Wound Of Foot Except Toe(s) Alone Without Complication 04/12/2011 MADBenji FOOD SCIENTIST, ANSON L 917.8 Other And Unspecified Superficial Injury Of Foot And Toes Without Infection 04/12/2011 MADL FOOD SCIENTIST, ANSON L V04.81 Flu Dx (3 Yrs [...] 477.9 ALLERGIC RHINITIS CAUSE UNSPECIFIED 04/13/2011 MADL FOOD SCIENTIST, ANSON L 477.9 ALLERGIC RHINITIS CAUSE UNSPECIFIED 04/13/2011 MADL FOOD SCIENTIST ANSON L 477.9 ALLERGIC RHINITIS CAUSE UNSPECIFIED [...] 789.00 Abdominal Pain Unspecified Site 04/17/2011 LOBATO FOOD SCIENTIST, BRENNA R 599.0 Urinary Tract Infection 04/17/2011 LOBATO FOOD SCIENTIST, BRENNA R 789.00 Abdominal Pain Unspecified Site [...] APRN 599.0 Urinary Tract Infection 04/17/2011 KIM FOOD SCIENTIST, OSMAN T 789.00 Abdominal Pain Unspecified Site [...] 789.00 Abdominal Pain Unspecified Site 04/17/2011 MADL FOOD SCIENTIST, ANSON L 599.0 Urinary Tract Infection 04/17/2011 MADL FOOD SCIENTIST, ANSON L 789.00 Abdominal Pain Unspecified Site 04/17/2011 LUIS ALFREDO YUN BRENNA R 599.0 Urinary Tract Infection 04/17/2011 EMERY LBOATO APRNRICIA R 789.00 Abdominal Pain Unspecified Site [...] 789.00 Abdominal Pain Unspecified Site 04/17/2011 MADL FOOD SCIENTIST, ANSON L 599.0 Urinary Tract Infection 04/17/2011 MADL FOOD SCIENTIST, ANSON L 789.00 Abdominal Pain Unspecified Site 04/17/2011 MADL FOOD SCIENTIST, ANSON L 599.0 Urinary Tract Infection 04/17/2011 MADL FOOD SCIENTIST, ANSON L 789.00 Abdominal Pain Unspecified Site 04/17/2011 MICHELINE FOOD SCIENTIST, RAQUEL R 599.0 Urinary Tract Infection 04/17/2011 MICHELINE FOOD SCIENTIST, RAQUEL R 789.00 Abdominal Pain Unspecified Site [...] 789.00 Abdominal Pain Unspecified Site 04/17/2011 MADL FOOD SCIENTIST, ANSON L 599.0 Urinary Tract Infection 04/17/2011 MADL FOOD SCIENTIST, ANSON L 789.00 Abdominal Pain Unspecified Site 04/17/2011 CARMEN GIBBS MD N 599.0 Urinary Tract Infection 04/17/2011 CARMEN GIBBS MD N 789.00 Abdominal Pain Unspecified Site 04/17/2011 CARMEN GIBBS MD N 599.0 Urinary Tract Infection 04/17/2011 CARMEN GIBBS MD N 789.00 Abdominal Pain Unspecified Site 04/17/2011 MADL FOOD SCIENTIST, ANSON L 599.0 Urinary Tract Infection 04/17/2011 MADL FOOD SCIENTIST, ANSON L 789.00 Abdominal Pain Unspecified Site 04/17/2011 ROLON DO, EMIL K 599.0 Urinary Tract Infection 04/17/2011 ROLON DO, EMIL K 789.00 Abdominal Pain Unspecified Site 05/01/2011 DEB JETERS, REGINO N 625.9 Pelvic Pain 05/01/2011 625.9 Pelvic Pain 05/01/2011 LOBATO FOOD SCIENTIST, BRENNA R 625.9 Pelvic Pain 05/01/2011 ROLON [...] K 625.9 Pelvic Pain 05/01/2011 LUIS ALFREDO FOOD SCIENTIST, BRENNA R 625.9 Pelvic Pain 05/01/2011 JOSE FRANCISCOL FOOD SCIENTIST, ANSON L 625.9 Pelvic Pain 05/01/2011 LUIS ALFREDO YUN, BRENNA R 625.9 Pelvic Pain 05/01/2011 CARMEN GIBBS MD N 625.9 Pelvic Pain 05/01/2011 ROLON DO, EMIL K 625.9 Pelvic Pain 05/01/2011 MICHELINE FOOD SCIENTIST, RAQUEL R 625.9 Pelvic Pain 05/01/2011 CARMEN GIBBS MD N 625.9 Pelvic Pain 05/01/2011 LOBATO FOOD SCIENTIST, BRENNA R 625.9 Pelvic Pain 05/01/2011 MICHELINE YUN, RAQUEL R 625.9 Pelvic Pain 05/01/2011 CARMEN GIBBS MD N 625.9 Pelvic Pain 05/01/2011 MADL FOOD SCIENTIST, ANSON L 625.9 Pelvic Pain 05/01/2011 MADL FOOD SCIENTIST, ANSON L 625.9 Pelvic Pain 05/01/2011 MICHELINE [...] 381.81 Dysfunction Of Eustachian Tube 05/21/2011 CRISTINO OLBATO APRNIA R 381.81 Dysfunction Of Eustachian Tube [...] 786.50 Chest Pain Or Discomfort 05/30/2011 MADL FOOD SCIENTIST, ANSON L 786.50 Chest Pain Or Discomfort [...] APRN 729.5 Hand Pain 06/20/2011 ROLON DO, MEIL K 729.5 Hand Pain 06/20/2011 ROLON DO, [...] K 333.94 RESTLESS LEGS SYNDROME (RLS) 07/31/2011 ROLNO DO, EMIL K 333.94 RESTLESS LEGS SYNDROME [...] OSMAN ALVAREZ APRN 789.00 abdominal pain 09/28/2011 OSAMN ALVAREZ APRN V68.1 Issue Of Repeat Prescriptions [...] 11/05/2011 V74.5 Std Screen 11/05/2011 LUIS ALFREDO FOOD SCIENTIST, BRENNA R 685.1 Pilonidal Cyst Without Abscess 11/05/2011 LUIS ALFREDO FOOD SCIENTIST, BRENNA R V25.09 CONTRACEPTIVE COUNSELING - GENERAL 11/05/2011 LUIS ALFREDO FOOD SCIENTIST, BRENNA R V65.3 COUNSELING - DIETARY 11/05/2011 [...] V65.3 COUNSELING - DIETARY 11/05/2011 JOSE FRANCISCOBenji FOOD SCIENTISTLETICIA ChristieA L V65.41 EXERCISE COUNSELING 11/05/2011 JOSE FRANCISCOBenji FOOD SCIENTISTLETICIA ChristieA L V74.5 Std Screen 11/05/2011 MALACHI [...] EMIL K V74.5 Std Screen 11/05/2011 MADL FOOD SCIENTIST, ANSON L 685.1 Pilonidal Cyst Without Abscess 11/05/2011 MADL FOOD SCIENTIST, ANSON L V25.09 CONTRACEPTIVE COUNSELING - GENERAL 11/05/2011 MADL FOOD SCIENTIST, ANSON L V65.3 COUNSELING - DIETARY 11/05/2011 MADL FOOD SCIENTIST, ANSON L V65.41 EXERCISE COUNSELING 11/05/2011 JOSE FRANCISCOL FOOD SCIENTIST, ANSON L V74.5 Std Screen 11/05/2011 CARMEN [...] GIBBS MD V74.5 Std Screen 11/05/2011 MADL FOOD SCIENTIST, ANSON L 685.1 Pilonidal Cyst Without Abscess 11/05/2011 MADL FOOD SCIENTIST, ANSON L V25.09 CONTRACEPTIVE COUNSELING - GENERAL 11/05/2011 MADL FOOD SCIENTIST, ANSON L V65.3 COUNSELING - DIETARY 11/05/2011 MADL FOOD SCIENTIST, ANSON L V65.41 EXERCISE COUNSELING 11/05/2011 MADL FOOD SCIENTIST, ANSON L V74.5 Std Screen 11/05/2011 ROLON [...] Other Disorders Of Coccyx 12/10/2011 ROLON DO EMLI K 724.79 Other Disorders Of Coccyx 12/10/2011 [...] Condyloma Acuminatum 01/21/2012 078.11 Condyloma Acuminatum 01/21/2012 BRNENA LOBATO APRN 078.11 Condyloma Acuminatum 01/21/2012 EMIL [...] EMIL K 078.11 Condyloma Acuminatum 01/21/2012 LOBATO FOOD SCIENTIST, BRENNA R 078.11 Condyloma Acuminatum 01/21/2012 SHERI FOOD SCIENTIST, ANSON L 078.11 Condyloma Acuminatum 01/21/2012 LUIS ALFREDO BAUMANN, BRENNA R 078.11 Condyloma Acuminatum 01/21/2012 CARMEN GIBBS MD N 078.11 Condyloma Acuminatum 01/21/2012 EMIL ROLON DO K 078.11 Condyloma Acuminatum 01/21/2012 MICEHLINE BAUMANN, RAQUEL R 078.11 Condyloma Acuminatum 01/21/2012 [...] LOBATO APRN R 388.70 Otalgia 03/18/2012 MICHELINE FOOD SCIENTIST, RAQUEL R 388.70 Otalgia 03/18/2012 CARMEN GIBBS MD 388.70 Otalgia 03/18/2012 MADL FOOD SCIENTIST, ANSON L 388.70 Otalgia 03/18/2012 MADL FOOD SCIENTIST, ANSON L 388.70 Otalgia 03/18/2012 MICHELINE BAUMANN, RAQUEL R 388.70 Otalgia 03/18/2012 ELLIOT MORENO DDS 388.70 Otalgia 03/18/2012 CARMEN GIBBS MD 388.70 Otalgia 03/18/2012 EMIL ROLON DO 388.70 Otalgia 03/18/2012 MADBenji FOOD SCIENTIST, ANSON L 388.70 Otalgia 03/18/2012 CARMEN GIBBS MD 388.70 Otalgia 03/18/2012 CARMEN GIBBS MD 388.70 Otalgia 03/18/2012 MADBenji FOOD SCIENTIST, ANSON L 388.70 Otalgia 03/18/2012 EMIL ROLON [...] Neoplasm Of Skin Site Unspecified 05/05/2012 MADL FOOD SCIENTIST, ANSON L 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 05/05/2012 MADL FOOD SCIENTIST, ANSON L 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 05/05/2012 MICHELINE FOOD SCIENTIST, RAQUEL R 216.9 Benign Neoplasm Of Skin [...] EMIL K 461.9 Sinusitis Acute 05/12/2012 BRENNA LBOATO APRN R 461.9 Sinusitis Acute 05/12/2012 LETICIA [...] K V58.32 Suture Removal 05/19/2012 ROLON DO, MEIL K 238.2 Neoplasm Of Uncertain Behavior Of [...] Of Uncertain Behavior Of Skin 05/19/2012 MICHELINE FOOD SCIENTIST, RAQUEL R V58.32 Suture Removal 05/19/2012 CARMEN GIBBS MD N 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 05/19/2012 CARMEN GIBBS MD N V58.32 Suture Removal 05/19/2012 LUIS ALFREDO FOOD SCIENTIST, BRENNA R 238.2 Neoplasm Of Uncertain Behavior [...] Of Uncertain Behavior Of Skin 05/19/2012 MADL FOOD SCIENTIST, ANSON L V58.32 Suture Removal 05/19/2012 JOSE [...] BAUMANN, BRENNA R 704.1 HIRSUTISM 07/02/2012 SHERI FOOD SCIENTIST, ANSON L 704.1 HIRSUTISM 07/02/2012 LUIS ALFREDO [...] GIBBS MD N 786.2 COUGH 07/07/2012 KIM FOOD SCIENTIST, OSMAN T 786.2 COUGH 07/07/2012 ROLON DO, EMIL K 786.2 COUGH 07/07/2012 ROLON DO, EMIL K 786.2 COUGH 07/07/2012 ROLON DO, EMIL K 786.2 COUGH 07/07/2012 KIM FOOD SCIENTIST, OSMAN T 786.2 COUGH 07/07/2012 ROLON DO, EMIL K 786.2 COUGH 07/07/2012 ROLON DO, EMIL K 786.2 COUGH 07/07/2012 LUIS ALFREDO BAUMANN, BRENNA R 786.2 COUGH 07/07/2012 SHERI FOOD SCIENTIST, ANSON L 786.2 COUGH 07/07/2012 LUIS ALFREDO [...] GIBBS MD N 786.2 COUGH 07/07/2012 SHERI FOOD SCIENTIST, ANSON L 786.2 COUGH 07/07/2012 SHERI FOOD SCIENTIST, ANSON L 786.2 COUGH 07/07/2012 MICHELINE BAUMANN, RAQUEL R 786.2 COUGH 07/07/2012 JOSH VILLAVICENCIO, ELLIOT Alston 786.2 COUGH 07/07/2012 CARMEN GIBBS MD N 786.2 COUGH 07/07/2012 SHERI FOOD SCIENTIST, ANSON L 786.2 COUGH 07/07/2012 CARMEN GIBBS [...] EMIL K 112.1 CANDIDIASIS VAGINAL 08/20/2012 KIM FOOD SCIENTIST, OSMAN T 054.9 HERPES SIMPLEX WITHOUT COMPLICATION [...] HERPES SIMPLEX WITHOUT COMPLICATION 08/20/2012 LUIS ALFREDO FOOD SCIENTIST, BRENNA R 112.1 CANDIDIASIS VAGINAL 08/20/2012 SHERI FOOD SCIENTIST, ANSON L 054.9 HERPES SIMPLEX WITHOUT COMPLICATION 08/20/2012 SHERI FOOD SCIENTIST, ANSON L 112.1 CANDIDIASIS VAGINAL 08/20/2012 LUIS [...] 054.9 HERPES SIMPLEX WITHOUT COMPLICATION 08/20/2012 MAD FOOD SCIENTIST, ANSON L 112.1 CANDIDIASIS VAGINAL 08/20/2012 [facility] FOOD SCIENTIST, ANSON L 054.9 HERPES SIMPLEX WITHOUT COMPLICATION 08/20/2012 MAD FOOD SCIENTIST, ANSON L 112.1 CANDIDIASIS VAGINAL 08/20/2012 MICHELINE FOOD SCIENTIST, RAQUEL R 054.9 HERPES SIMPLEX WITHOUT COMPLICATION 08/20/2012 MICHELINE FOOD SCIENTIST, RAQUEL R 112.1 CANDIDIASIS VAGINAL 08/20/2012 WHITE DDS, ELLIOT J 054.9 HERPES SIMPLEX WITHOUT COMPLICATION 08/20/2012 WHITE DDS, ELLIOT J 112.1 CANDIDIASIS VAGINAL 08/20/2012 CARMEN GIBBS MD N 054.9 HERPES SIMPLEX WITHOUT COMPLICATION 08/20/2012 CARMEN GIBBS MD N 112.1 CANDIDIASIS VAGINAL 08/20/2012 [facility] FOOD SCIENTIST, ANSON L 054.9 HERPES SIMPLEX WITHOUT COMPLICATION 08/20/2012 [facility] FOOD SCIENTIST, ANSON L 112.1 CANDIDIASIS VAGINAL 08/20/2012 CARMEN GIBBS MD N 054.9 HERPES SIMPLEX WITHOUT COMPLICATION 08/20/2012 CARMEN GIBBS MD N 112.1 CANDIDIASIS VAGINAL 08/20/2012 CARMEN GIBBS MD N 054.9 HERPES SIMPLEX WITHOUT COMPLICATION 08/20/2012 CARMEN GIBBS MD N 112.1 CANDIDIASIS VAGINAL 08/20/2012 [facility] FOOD SCIENTIST, ANSON L 054.9 HERPES SIMPLEX WITHOUT COMPLICATION 08/20/2012 [facility] FOOD SCIENTIST, ANSON L 112.1 CANDIDIASIS VAGINAL 08/20/2012 EMIL [...] 682.6 CELLULITIS OF LEG 05/11/2013 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 Ot 782.1 NONSPECIF SKIN ERUPT NEC 05/12/2013 [...] APRN R 307.81 TENSION HEADACHE 05/27/2013 ANSON WAED APRN L 307.81 TENSION HEADACHE 05/27/2013 CRISTINO [...] GIBBS MD 307.81 TENSION HEADACHE 05/27/2013 MADL FOOD SCIENTIST, ANSON L 307.81 TENSION HEADACHE 05/27/2013 MADL FOOD SCIENTIST, ANSON L 307.81 TENSION HEADACHE 05/27/2013 MICHELINE FOOD SCIENTIST, RAQUEL R 307.81 TENSION HEADACHE 05/27/2013 JOSH VILLAVICENCIO, ELLIOT Alston 307.81 TENSION HEADACHE 05/27/2013 CARMEN GIBBS MD 307.81 TENSION HEADACHE 05/27/2013 MADL FOOD SCIENTIST, ANSON L 307.81 TENSION HEADACHE 05/27/2013 CARMEN GIBBS MD 307.81 TENSION HEADACHE 05/27/2013 CARMEN GIBBS MD 307.81 TENSION HEADACHE 05/27/2013 MADL FOOD SCIENTIST, ANSON L 307.81 TENSION HEADACHE 05/27/2013 SUDHIR [...] AND ABSCESS OF UNSPECIFIED SITES 05/29/2013 LOBATO FOOD SCIENTIST, BRENNA R 682.9 CELLULITIS AND ABSCESS OF UNSPECIFIED SITES 05/29/2013 MADL FOOD SCIENTIST, ANSON L 682.9 CELLULITIS AND ABSCESS OF UNSPECIFIED SITES 05/29/2013 LOBATO FOOD SCIENTIST, BRENNA R 682.9 CELLULITIS AND ABSCESS OF UNSPECIFIED SITES 05/29/2013 CARMEN GIBBS MD 682.9 CELLULITIS AND ABSCESS OF UNSPECIFIED SITES 05/29/2013 ROLON DO, EMIL K 682.9 CELLULITIS AND ABSCESS OF UNSPECIFIED SITES 05/29/2013 MICHELINE FOOD SCIENTIST, RAQUEL R 682.9 CELLULITIS AND ABSCESS OF UNSPECIFIED SITES 05/29/2013 CARMEN GIBBS MD 682.9 CELLULITIS AND ABSCESS OF UNSPECIFIED SITES 05/29/2013 LOBATO FOOD SCIENTIST, BRENNA R 682.9 CELLULITIS AND ABSCESS OF UNSPECIFIED SITES 05/29/2013 MICHELINE FOOD SCIENTIST, RAQUEL R 682.9 CELLULITIS AND ABSCESS OF UNSPECIFIED SITES 05/29/2013 CARMEN GIBBS MD N 682.9 CELLULITIS AND ABSCESS OF UNSPECIFIED SITES 05/29/2013 MADL FOOD SCIENTIST, ANSON L 682.9 CELLULITIS AND ABSCESS OF UNSPECIFIED SITES 05/29/2013 MADL FOOD SCIENTIST, ANSON L 682.9 CELLULITIS AND ABSCESS OF UNSPECIFIED SITES 05/29/2013 MICHELINE FOOD SCIENTIST, RAQUEL R 682.9 CELLULITIS AND ABSCESS OF UNSPECIFIED SITES 05/29/2013 JOSH JETERS, ELLIOT Alston 682.9 CELLULITIS AND ABSCESS OF UNSPECIFIED SITES 05/29/2013 CARMEN GIBBS MD N 682.9 CELLULITIS AND ABSCESS OF UNSPECIFIED SITES 05/29/2013 MADL FOOD SCIENTIST, ANSON L 682.9 CELLULITIS AND ABSCESS OF UNSPECIFIED SITES 05/29/2013 CARMEN GIBBS MD N 682.9 CELLULITIS AND ABSCESS OF UNSPECIFIED SITES 05/29/2013 CARMEN GIBSB MD N 682.9 CELLULITIS AND ABSCESS OF UNSPECIFIED SITES 05/29/2013 MADL FOOD SCIENTIST, ANSON L 682.9 CELLULITIS AND ABSCESS OF [...] WOUND DRAIN CHANGE/REMOVAL AFTER SURGERY 05/30/2013 MADL FOOD SCIENTIST, ANSON L V58.49 WOUND DRAIN CHANGE/REMOVAL AFTER SURGERY 05/30/2013 MICHELINE FOOD SCIENTIST, RAQUEL R V58.49 WOUND DRAIN CHANGE/REMOVAL AFTER SURGERY 05/30/2013 JOSH JETERS, ELLIOT J V58.49 WOUND DRAIN CHANGE/REMOVAL AFTER SURGERY 05/30/2013 CARMEN GIBBS MD V58.49 WOUND DRAIN CHANGE/REMOVAL AFTER SURGERY 05/30/2013 SHERI FOOD SCIENTIST, ANSON L V58.49 WOUND DRAIN CHANGE/REMOVAL AFTER SURGERY 05/30/2013 CARMEN GIBBS MD V58.49 WOUND DRAIN CHANGE/REMOVAL AFTER SURGERY 05/30/2013 CARMEN GIBBS MD V58.49 WOUND DRAIN CHANGE/REMOVAL AFTER SURGERY 05/30/2013 SHERI FOOD SCIENTIST, ANSON L V58.49 WOUND DRAIN CHANGE/REMOVAL AFTER [...] THIGH) AND ANKLE WITHOUT COMPLICATION 06/05/2013 KIM FOOD SCIENTIST OSMAN T 891.0 OPEN WOUND OF KNEE LEG (EXCEPT THIGH) AND ANKLE WITHOUT COMPLICATION 06/05/2013 ROLON DO, EMIL K 891.0 OPEN WOUND OF KNEE LEG (EXCEPT THIGH) AND ANKLE WITHOUT COMPLICATION 06/05/2013 ROLON DO, EMIL K 891.0 OPEN WOUND OF KNEE LEG (EXCEPT THIGH) AND ANKLE WITHOUT COMPLICATION 06/05/2013 LOBATO FOOD SCIENTIST, BRENNA R 891.0 OPEN WOUND OF KNEE LEG (EXCEPT THIGH) AND ANKLE WITHOUT COMPLICATION 06/05/2013 MADL FOOD SCIENTIST, ANSON L 891.0 OPEN WOUND OF KNEE LEG (EXCEPT THIGH) AND ANKLE WITHOUT COMPLICATION 06/05/2013 LUIS ALFREDO FOOD SCIENTIST, BRENNA R 891.0 OPEN WOUND OF KNEE LEG (EXCEPT THIGH) AND ANKLE WITHOUT COMPLICATION 06/05/2013 CARMEN GIBBS MD N 891.0 OPEN WOUND OF KNEE LEG (EXCEPT THIGH) AND ANKLE WITHOUT COMPLICATION 06/05/2013 EMIL ROLON DO K 891.0 OPEN WOUND OF KNEE LEG (EXCEPT THIGH) AND ANKLE WITHOUT COMPLICATION 06/05/2013 MICHELINE FOOD SCIENTIST, RAQUEL R 891.0 OPEN WOUND OF KNEE LEG (EXCEPT THIGH) AND ANKLE WITHOUT COMPLICATION 06/05/2013 CARMEN GIBBS MD N 891.0 OPEN WOUND OF KNEE LEG (EXCEPT THIGH) AND ANKLE WITHOUT COMPLICATION 06/05/2013 LUIS ALFREDO YUN, BRENNA R 891.0 OPEN WOUND OF KNEE LEG (EXCEPT THIGH) AND ANKLE WITHOUT COMPLICATION 06/05/2013 MICHELINE FOOD SCIENTIST, RAQUEL R 891.0 OPEN WOUND OF KNEE LEG (EXCEPT THIGH) AND ANKLE WITHOUT COMPLICATION 06/05/2013 CARMEN GIBBS MD N 891.0 OPEN WOUND OF KNEE LEG (EXCEPT THIGH) AND ANKLE WITHOUT COMPLICATION 06/05/2013 MADL FOOD SCIENTIST, ANSON L 891.0 OPEN WOUND OF KNEE LEG (EXCEPT THIGH) AND ANKLE WITHOUT COMPLICATION 06/05/2013 MADL FOOD SCIENTIST, ANSON L 891.0 OPEN WOUND OF KNEE LEG (EXCEPT THIGH) AND ANKLE WITHOUT COMPLICATION 06/05/2013 MICHELINE FOOD SCIENTIST, RAQUEL R 891.0 OPEN WOUND OF KNEE [...] 493.92 ASTHMA WITH ACUTE EXACERBATION 09/03/2013 LOBATO FOOD SCIENTIST, BRENNA R 493.92 ASTHMA WITH ACUTE EXACERBATION 09/03/2013 SHERI FOOD SCIENTIST, ANSON L 493.92 ASTHMA WITH ACUTE EXACERBATION [...] 465.9 UPPER RESPIRATORY INFECTION 09/12/2013 LUIS ALFREDO FOOD SCIENTIST, BRENNA R 465.9 UPPER RESPIRATORY INFECTION 09/12/2013 MADL FOOD SCIENTIST, ANSON L 465.9 UPPER RESPIRATORY INFECTION 09/12/2013 LOBATO PASTOR, BRENNA R 465.9 UPPER RESPIRATORY INFECTION 09/12/2013 CARMNE GIBBS MD N 465.9 UPPER RESPIRATORY INFECTION 09/12/2013 ROLON DO, EMIL K 465.9 UPPER RESPIRATORY INFECTION 09/12/2013 MICHELINE BAUMANN, RAQUEL R 465.9 UPPER RESPIRATORY INFECTION 09/12/2013 CARMEN GIBBS MD 465.9 UPPER RESPIRATORY INFECTION 09/12/2013 CRISTINO LOBATO APRNIA R 465.9 UPPER RESPIRATORY INFECTION 09/12/2013 MICHELINE BAUMANN, RAQUEL R 465.9 UPPER RESPIRATORY INFECTION 09/12/2013 CARMEN GIBBS MD N 465.9 UPPER RESPIRATORY INFECTION 09/12/2013 SHERI FOOD SCIENTIST, ANSON L 465.9 UPPER RESPIRATORY INFECTION 09/12/2013 MADL FOOD SCIENTIST, ANSON L 465.9 UPPER RESPIRATORY INFECTION 09/12/2013 [...] ACUTE MUCOID LEFT EAR 09/16/2013 JOSE FRANCISCOL FOOD SCIENTIST, ANSON L 381.02 OTITIS MEDIA ACUTE MUCOID [...] ASSOCIATED WITH FEMALE GENITAL ORGANS 09/21/2013 MADL FOOD SCIENTIST, ANSON L 625.8 OTHER SPECIFIED SYMPTOMS ASSOCIATED WITH FEMALE GENITAL ORGANS 09/21/2013 CRISTINO LOBATO APRNIA R 625.8 OTHER SPECIFIED SYMPTOMS ASSOCIATED WITH FEMALE GENITAL ORGANS 09/21/2013 CARMEN GIBBS MD 625.8 OTHER SPECIFIED SYMPTOMS ASSOCIATED WITH FEMALE GENITAL ORGANS 09/21/2013 ROLON DO, EMIL K 625.8 OTHER SPECIFIED SYMPTOMS ASSOCIATED WITH FEMALE GENITAL ORGANS 09/21/2013 MALACHI OTBIAS APRNINA R 625.8 OTHER SPECIFIED SYMPTOMS ASSOCIATED [...] WADE APRN 787.02 NAUSEA ALONE 10/28/2013 ANSON WDAE APRN 787.02 NAUSEA ALONE 10/28/2013 RAQUEL TOBIAS [...] DO K Ot 724.2 LUMBAGO 01/21/2014 EMIL ORLON DO K 787.01 NAUSEA WITH VOMITING 01/21/2014 [...] MORENO DDS 787.01 NAUSEA WITH VOMITING 01/21/2014 CAMREN GIBBS MD 787.01 NAUSEA WITH VOMITING 01/21/2014 [...] TOBIAS APRNINA R 706.1 OTHER ACNE 02/05/2014 CRAMEN GIBBS MD N 706.1 OTHER ACNE 02/05/2014 [...] IN JOINT INVOLVING SHOULDER REGION 03/30/2014 MADL FOOD SCIENTIST, ANSON L 719.41 PAIN IN JOINT INVOLVING SHOULDER REGION 03/30/2014 CARMEN GIBBS MD N 719.41 PAIN IN JOINT INVOLVING SHOULDER REGION 03/30/2014 CARMEN GIBBS MD 719.41 PAIN IN JOINT INVOLVING SHOULDER REGION 03/30/2014 MADL FOOD SCIENTIST, ANSON L 719.41 PAIN IN JOINT INVOLVING SHOULDER REGION 03/30/2014 EMIL ROLON DO 719.41 PAIN IN JOINT INVOLVING SHOULDER REGION 04/27/2014 CARMEN GIBBS MD N 704.00 ALOPECIA UNSPECIFIED 04/27/2014 MADL FOOD SCIENTIST, ANSON L 704.00 ALOPECIA UNSPECIFIED 04/27/2014 MADL FOOD SCIENTIST, ANSON L 704.00 ALOPECIA UNSPECIFIED 04/27/2014 MICHELINE BAUMANN, RAQUEL R 704.00 ALOPECIA UNSPECIFIED 04/27/2014 ELLIOT MORENO DDS J 704.00 ALOPECIA UNSPECIFIED 04/27/2014 CARMEN GIBBS MD N 704.00 ALOPECIA UNSPECIFIED 04/27/2014 MADL FOOD SCIENTIST, ANSON L 704.00 ALOPECIA UNSPECIFIED 04/27/2014 CARMEN GIBBS MD N 704.00 ALOPECIA UNSPECIFIED 04/27/2014 CARMEN GIBBS MD N 704.00 ALOPECIA UNSPECIFIED 04/27/2014 MADL FOOD SCIENTIST, ANSON L 704.00 ALOPECIA UNSPECIFIED 04/27/2014 EMIL ROLON DO K 704.00 ALOPECIA UNSPECIFIED 05/10/2014 MADL FOOD SCIENTIST, ANSON L 786.52 PAINFUL RESPIRATION 05/10/2014 MADL FOOD SCIENTIST, ANSON L 786.52 PAINFUL RESPIRATION 05/10/2014 MICHELINE BAUMANN, RAQUEL R 786.52 PAINFUL RESPIRATION 05/10/2014 ELLIOT MORENO DDS J 786.52 PAINFUL RESPIRATION 05/10/2014 CARMEN GIBBS MD N 786.52 PAINFUL RESPIRATION 05/10/2014 MADL FOOD SCIENTIST, ANSON L 786.52 PAINFUL RESPIRATION 05/10/2014 CARMEN GIBBS MD N 786.52 PAINFUL RESPIRATION 05/10/2014 CARMEN GIBBS MD N 786.52 PAINFUL RESPIRATION 05/10/2014 MADANSON Leblanc APRN L 786.52 PAINFUL RESPIRATION 05/10/2014 EMIL ROLON DO 786.52 PAINFUL RESPIRATION 05/25/2014 MICHELINE FOOD SCIENTIST, RAQUEL R 461.9 SINUSITIS ACUTE 05/25/2014 MICHELINE FOOD SCIENTIST, RAQUEL R 709.9 UNSPECIFIED DISORDER OF SKIN AND SUBCUTANEOUS TISSUE 05/25/2014 MICHELINE FOOD SCIENTIST, RAQUEL R 784.0 HEADACHE 05/25/2014 WHITE DDS, [...] TOMAS MD Ot V74.8 05/28/2014 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 Ot 278.01 05/28/2014 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 Ot 401.9 05/28/2014 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 Ot 786.09 05/28/2014 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 Ot V85.42 05/31/2014 JOSH DDS, ELLIOT J [...] 381.81 DYSFUNCTION OF EUSTACHIAN TUBE 08/09/2014 SHERI FOOD SCIENTISTANSON Christie L 381.81 DYSFUNCTION OF EUSTACHIAN TUBE 08/09/2014 ROLON SUDHIR GAMINGA K 381.81 DYSFUNCTION OF EUSTACHIAN TUBE 08/17/2014 CARMEN GIBBS MD N 782.0 DISTURBANCE OF SKIN SENSATION 08/17/2014 CARMEN GIBBS MD N 790.29 ABNORMAL GLUCOSE 08/17/2014 MADL FOOD SCIENTISTLETICIA ChristieA L 782.0 DISTURBANCE OF SKIN SENSATION 08/17/2014 MADL FOOD SCIENTISTLETICIA ChristieA L 790.29 ABNORMAL GLUCOSE 08/17/2014 ROLON DO EMIL K 782.0 DISTURBANCE OF SKIN SENSATION 08/17/2014 ROLON DO EMIL K 790.29 ABNORMAL GLUCOSE 08/28/2014 CARMEN GIBBS MD N 698.9 PRURITUS NOS 08/28/2014 MADBenji FOOD SCIENTIST, ANSON L 698.9 PRURITUS NOS 08/28/2014 ROLON SUDHIR GAMINGA K 698.9 PRURITUS NOS 09/04/2014 GEORGES FINN APRN Ot 723.1 CERVICALGIA 09/06/2014 LETICIA WADE APRNA L 724.5 BACKACHE UNSPECIFIED 09/06/2014 ROLON EMIL GAMING K 724.5 BACKACHE UNSPECIFIED 09/13/2014 [place], IZABELA Martinez Ot 724.1 PAIN IN THORACIC SPINE 09/13/2014 IZABELA RENDNO MD Ot 724.2 LUMBAGO 11/24/2014 [place], [...] TOMAS MD Ot V74.8 06/02/2015 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 Ot 278.01 06/02/2015 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 Ot 401.9 06/02/2015 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 Ot 786.09 06/02/2015 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 Ot V85.42 06/02/2015 DEE BAH MD Ot 723.0 06/02/2015 DEE BAH MD Ot 724.02 06/02/2015 ROCHELLE CANNON MD Ot M77.8 06/08/2015 ROCHELLE CANNON MD Ot M22.41 CHONDROMALACIA PATELLAE, RIGHT KNEE 06/08/2015 ROCHELLE CANNON MD Ot M23.221 DERANG OF POST HORN OF MEDIAL MENSC D/T 06/08/2015 ROCHELLE CANNON MD Ot Z79.899 OTHER HOG RAISER (CURRENT) DRUG THERAPY 06/08/2015 ROCHELLE CANNON MD [...] TOMAS MD Ot V74.8 06/14/2015 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 Ot 278.01 06/14/2015 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 Ot 401.9 06/14/2015 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 Ot 786.09 06/14/2015 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 Ot V85.42 06/14/2015 [place], DEE Alston [...] MDNY L Ot V74.8 08/31/2015 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 Ot 278.01 08/31/2015 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 Ot 401.9 08/31/2015 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 Ot 786.09 08/31/2015 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 Ot V85.42 08/31/2015 DEE BAH MD Ot [...] MASS INDEX 40.0-44.9, ADULT 12/21/2015 RONY ALDANA FOOD SCIENTIST Ot 571.8 CHRONIC LIVER DIS NEC 12/21/2015 TATA TOMAS MD Ot 724.70 DISORDER OF COCCYX NOS 12/21/2015 TATA TOMAS MD Ot V72.63 PRE-PROCEDURAL LABORATORY EXAMINATION 12/21/2015 TATA TOMAS MD Ot V74.8 SCREEN-BACTERIAL DIS NEC 12/21/2015 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 Ot 278.01 MORBID OBESITY 12/21/2015 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 Ot 401.9 HYPERTENSION NOS 12/21/2015 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 Ot 786.09 RESPIRATORY ABNORM NEC 12/21/2015 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 Ot V85.42 BODY MASS INDEX 45.0-49.9, ADULT [...] FOR SCREENING FOR OTHER BACTER 05/23/2016 ROCHELLE CNANON MD Ot M25.461 EFFUSION, RIGHT KNEE 05/23/2016 [...] [place], ROCHELLE Salgado Ot Z79.899 OTHER HOG RAISER (CURRENT) DRUG THERAPY 05/31/2016 ROCHELLE CANNON MD Ot M22.41 CHONDROMALACIA PATELLAE, RIGHT KNEE 05/31/2016 ROCHELLE CANNON MD Ot M23.203 DERANG OF UNSP MEDIAL MENISCUS DUE TO OL 05/31/2016 [place], ROCHELLE Salgado Ot Z79.899 OTHER CORRECTION (CURRENT) DRUG THERAPY 06/14/2016 ROCHELLE CANNON MD Ot M22.41 CHONDROMALACIA PATELLAE, RIGHT KNEE 06/14/2016 ROCHELLE CANNON MD Ot M23.203 DERANG OF UNSP MEDIAL MENISCUS DUE TO OL 06/14/2016 ROCHELLE CANNON MD Ot Z79.899 OTHER HOG RAISER (CURRENT) DRUG THERAPY 06/17/2016 GEORGES FINN APRN [...] MASS INDEX 40.0-44.9, ADULT 06/24/2016 RONY ALDANA FOOD SCIENTIST Ot 571.8 CHRONIC LIVER DIS NEC 06/24/2016 TATA TOMAS MD Ot 724.70 DISORDER OF COCCYX NOS 06/24/2016 TATA TOMAS MD, Ot V72.63 PRE-PROCEDURAL LABORATORY EXAMINATION 06/24/2016 TATA TOMAS MD, Ot V74.8 SCREEN-BACTERIAL DIS NEC 06/24/2016 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 Ot 278.01 MORBID OBESITY 06/24/2016 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 Ot 401.9 HYPERTENSION NOS 06/24/2016 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 Ot 786.09 RESPIRATORY ABNORM NEC 06/24/2016 LAZARO [...] SCREEN-BACTERIAL DIS NEC 08/05/2016 LAZARO HURTADO L AUTO BODY MECHANIC Ot 278.01 MORBID OBESITY 08/05/2016 BAILAZARO HAHN L AUTO BODY MECHANIC Ot 401.9 HYPERTENSION NOS 08/05/2016 BAIMA LAZARO L AUTO BODY MECHANIC Ot 786.09 RESPIRATORY ABNORM NEC 08/05/2016 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 Ot V85.42 BODY MASS INDEX 45.0-49.9, ADULT [...] MASS AND LUMP, NECK 10/11/2016 DAVID, GEOVANI AUTO BODY MECHANIC Ot R05 COUGH 10/11/2016 DAVID, GEOVANI AUTO BODY MECHANIC Ot R10.12 LEFT UPPER QUADRANT PAIN 10/11/2016 DAVID, GEOVANI AUTO BODY MECHANIC Ot Z87.19 PERSONAL HISTORY OF OTHER DISEASES OF 10/12/2016 DAVID, GEOVANI AUTO BODY MECHANIC Ot R05 COUGH 10/12/2016 DAVID, GEOVANI AUTO BODY MECHANIC Ot R10.12 LEFT UPPER QUADRANT PAIN 10/12/2016 DAVID, GEOVANI AUTO BODY MECHANIC Ot Z87.19 PERSONAL HISTORY OF OTHER DISEASES [...] 724.79 DISORDER OF COCCYX NEC 10/26/2016 LUIS MOREON MD Ot V58.69 OTH MED,LT,CURRENT USE 10/26/2016 LUIS MORENO MD Ot V85.41 BODY MASS INDEX 40.0-44.9, ADULT 10/26/2016 RONY ALDANA FOOD SCIENTIST Ot 571.8 CHRONIC LIVER DIS NEC 10/26/2016 TATA TOMAS MD Ot 724.70 DISORDER OF COCCYX NOS 10/26/2016 TATA TOMAS MD Ot V72.63 PRE-PROCEDURAL LABORATORY EXAMINATION 10/26/2016 TATA TOMAS MD Ot V74.8 SCREEN-BACTERIAL DIS NEC 10/26/2016 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 Ot 278.01 MORBID OBESITY 10/26/2016 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 Ot 401.9 HYPERTENSION NOS 10/26/2016 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 Ot 786.09 RESPIRATORY ABNORM NEC 10/26/2016 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 Ot V85.42 BODY MASS INDEX 45.0-49.9, ADULT [...] MD Ot E78.2 MIXED HYPERLIPIDEMIA 10/26/2016 ROCHELLE CANNNO MD, Ot S83.241S OTH TEAR OF MEDIAL [...] MORRISON Ot N76.4 ABSCESS OF VULVA 12/01/2016 ADRÁIN PARKS MD Ot J02.9 ACUTE PHARYNGITIS, [...] 03/14/2017 YUKI MARCH MD Ot Z79.899 OTHER CORRECTION (CURRENT) DRUG THERAPY 03/15/2017 YUKI MARCH MD Ot F41.9 ANXIETY DISORDER, UNSPECIFIED 03/15/2017 YUKI MARCH MD Ot G43.909 MIGRAINE, UNSP, NOT INTRACTABLE, WITHOUT 03/15/2017 YUKI MARCH MD Ot N28.89 OTHER SPECIFIED DISORDERS OF KIDNEY AND 03/15/2017 YUKI MARCH MD Ot R10.10 UPPER ABDOMINAL PAIN, UNSPECIFIED 03/15/2017 YUKI MARCH MD Ot R10.13 EPIGASTRIC PAIN 03/15/2017 YUKI MARCH MD Ot Z79.899 OTHER HOG RAISER (CURRENT) DRUG THERAPY 03/18/2017 YUKI MARCH MD Ot F41.9 ANXIETY DISORDER, UNSPECIFIED 03/18/2017 YUKI MARCH MD Ot G43.909 MIGRAINE, UNSP, NOT INTRACTABLE, WITHOUT 03/18/2017 YUKI MARCH MD Ot N28.89 OTHER SPECIFIED DISORDERS OF KIDNEY AND 03/18/2017 YUKI MARCH MD Ot R10.10 UPPER ABDOMINAL PAIN, UNSPECIFIED 03/18/2017 YUKI MARCH MD Ot R10.13 EPIGASTRIC PAIN 03/18/2017 YUKI MARCH MD Ot Z79.899 OTHER HOG RAISER (CURRENT) DRUG THERAPY 03/20/2017 YUKI MARCH MD Ot F41.9 ANXIETY DISORDER, UNSPECIFIED 03/20/2017 YUKI MARCH MD Ot G43.909 MIGRAINE, UNSP, NOT INTRACTABLE, WITHOUT 03/20/2017 YUKI MARCH MD Ot N28.89 OTHER SPECIFIED DISORDERS OF KIDNEY AND 03/20/2017 YUKI MARCH MD Ot R10.10 UPPER ABDOMINAL PAIN, UNSPECIFIED 03/20/2017 YUKI MARCH MD Ot R10.13 EPIGASTRIC PAIN 03/20/2017 YUKI MARCH MD Ot Z79.899 OTHER HOG RAISER (CURRENT) DRUG THERAPY 04/13/2017 GEORGES FINN APRN [...] ADVERSE EFFECT OF UNSP DRUG/MEDS/BIOL BO 04/19/2017 GEROGES FINN APRN Ot Z82.49 FAMILY HX OF [...] V74.8 SCREEN-BACTERIAL DIS NEC 05/30/2017 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 Ot 278.01 MORBID OBESITY 05/30/2017 BRYANTLAZARO Benji AUTO BODY MECHANIC Ot 401.9 HYPERTENSION NOS 05/30/2017 BRYANTLAZARO Benji AUTO BODY MECHANIC Ot 786.09 RESPIRATORY ABNORM NEC 05/30/2017 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 Ot V85.42 BODY MASS INDEX 45.0-49.9, ADULT [...] ISCHEM HEART DIS AND OTH DI 05/30/2017 EGORGES FINN APRN Ot Z86.010 PERSONAL HISTORY OF [...] 07/03/2017 YUNIOR LYLES MD Ot Z79.899 OTHER CORRECTION (CURRENT) DRUG THERAPY 07/03/2017 YUNIOR LYLES MD, Ot Z85.528 PERSONAL HISTORY OF OTHER MALIGNANT NEOP 07/03/2017 YUNIOR LYLES MD, Ot Z86.010 PERSONAL HISTORY OF COLONIC POLYPS 07/03/2017 YUNIOR LYLES MD Ot Z88.5 ALLERGY STATUS TO NARCOTIC AGENT STATUS 07/03/2017 YUNIOR LYLES MD Ot Z90.5 ACQUIRED ABSENCE OF KIDNEY 07/04/2017 YUNIOR LYLES MD, Ot F32.9 MAJOR DEPRESSIVE DISORDER, SINGLE EPISOD 07/04/2017 YUNIOR LYLES MD Ot F41.9 ANXIETY DISORDER, UNSPECIFIED 07/04/2017 YUNIOR LYLES MD Ot G47.61 PERIODIC LIMB MOVEMENT DISORDER 07/04/2017 YUNIOR LYLES MD Ot K64.1 SECOND DEGREE HEMORRHOIDS 07/04/2017 YUNIOR LYLES MD Ot Z79.899 OTHER HOG RAISER (CURRENT) DRUG THERAPY 07/04/2017 YUNIOR LYLES MD [...] 07/09/2017 YUNIOR LYLES MD Ot Z79.899 OTHER CORRECTION (CURRENT) DRUG THERAPY 07/09/2017 YUNIOR LYLES MD [...] MD Ot F41.9 ANXIETY DISORDER, UNSPECIFIED 07/23/2017 YUIK MARCH MD Ot J45.909 UNSPECIFIED ASTHMA, UNCOMPLICATED [...] Ot J45.909 UNSPECIFIED ASTHMA, UNCOMPLICATED 07/24/2017 YUKI MARCH MD Ot L03.115 CELLULITIS OF RIGHT LOWER LIMB 07/24/2017 YUKI MARCH MD Ot R10.12 LEFT UPPER QUADRANT PAIN 07/24/2017 YUKI MACRH MD Ot R10.9 UNSPECIFIED ABDOMINAL PAIN 07/24/2017 YUKI MARCH MD Ot Z82.49 FAMILY HX OF ISCHEM HEART DIS AND OTH DI 07/24/2017 YUKI MARCH MD Ot Z85.828 PERSONAL HISTORY OF OTHER MALIGNANT NEOP 07/24/2017 YUKI MARCH MD, Ot Z86.010 PERSONAL HISTORY OF COLONIC POLYPS 07/24/2017 YUKI MARCH MD Ot Z86.19 PERSONAL HISTORY OF OTHER INFECTIOUS AND 07/24/2017 YUKI MARCH MD Ot Z87.19 PERSONAL HISTORY OF OTHER DISEASES OF 07/24/2017 YUKI MARCH MD Ot Z87.440 PERSONAL HISTORY OF URINARY (TRACT) INFE 07/24/2017 YUKI MARCH MD Ot Z87.891 PERSONAL HISTORY OF NICOTINE DEPENDENCE 07/24/2017 YUKI MARCH MD Ot Z88.0 ALLERGY STATUS TO PENICILLIN 07/24/2017 YUKI MARCH MD Ot Z88.5 ALLERGY STATUS TO NARCOTIC AGENT STATUS 07/24/2017 YUKI MARCH MD Ot Z90.49 ACQUIRED ABSENCE OF OTHER SPECIFIED PART 07/24/2017 YUKI MARCH MD Ot Z90.5 ACQUIRED ABSENCE OF KIDNEY 07/24/2017 YUKI MARCH MD Ot Z90.710 ACQUIRED ABSENCE OF BOTH CERVIX AND UTER 07/24/2017 YUKI MARCH MD Ot Z90.89 ACQUIRED ABSENCE OF OTHER ORGANS 07/29/2017 MAKAYLA HAWKINS MD Ot F32.9 MAJOR DEPRESSIVE DISORDER, SINGLE EPISOD 07/29/2017 MAKAYLA HAWKINS MD Ot F41.9 ANXIETY DISORDER, UNSPECIFIED 07/29/2017 MAKAYLA HAWKINS MD Ot G43.909 MIGRAINE, UNSP, NOT INTRACTABLE, WITHOUT 07/29/2017 MAKAYLA HAWKINS MD Ot J45.909 UNSPECIFIED ASTHMA, UNCOMPLICATED 07/29/2017 MAKAYLA HAWKINS MD Ot R07.2 PRECORDIAL PAIN 07/29/2017 MAKAYLA HAWKINS MD Ot W18.30XA FALL ON SAME LEVEL, UNSPECIFIED, INITIAL 07/29/2017 MAKAYLA HAWKINS MD Ot Z82.49 FAMILY HX OF ISCHEM HEART DIS AND OTH DI 07/29/2017 MAKAYLA HAWKINS MD Ot Z85.528 PERSONAL HISTORY OF OTHER MALIGNANT NEOP 07/29/2017 MAKAYLA HAWKINS MD Ot Z86.010 PERSONAL HISTORY OF COLONIC POLYPS 07/29/2017 MAKAYLA HAWKINS MD Ot Z86.19 PERSONAL HISTORY OF OTHER INFECTIOUS AND 07/29/2017 MAKAYLA HAWKINS MD Ot Z87.19 PERSONAL HISTORY OF OTHER DISEASES OF 07/29/2017 MAKAYLA HAWKINS MD Ot Z87.440 PERSONAL HISTORY OF URINARY (TRACT) INFE 07/29/2017 MAKAYLA HAWKINS MD Ot Z88.0 ALLERGY STATUS TO PENICILLIN 07/29/2017 MAKAYLA HAWKINS MD Ot Z88.5 ALLERGY STATUS TO NARCOTIC AGENT STATUS 07/29/2017 MAKAYLA HAWKINS MD Ot Z90.710 ACQUIRED ABSENCE OF BOTH CERVIX AND UTER 07/29/2017 MAKAYLA HAWKINS MD Ot Z90.89 ACQUIRED ABSENCE OF OTHER ORGANS 07/31/2017 MAKAYLA HAWKINS MD Ot F32.9 MAJOR DEPRESSIVE DISORDER, SINGLE EPISOD 07/31/2017 MAKAYLA HAWKINS MD Ot F41.9 ANXIETY DISORDER, UNSPECIFIED 07/31/2017 MAKAYLA HAWKINS MD Ot G43.909 MIGRAINE, UNSP, NOT INTRACTABLE, WITHOUT 07/31/2017 MAKAYLA HAWKINS MD Ot J45.909 UNSPECIFIED ASTHMA, UNCOMPLICATED 07/31/2017 MAKAYLA HAWKINS MD Ot R07.2 PRECORDIAL PAIN 07/31/2017 MAKAYLA HAWKINS MD Ot W18.30XA FALL ON SAME LEVEL, UNSPECIFIED, INITIAL 07/31/2017 MAKAYLA HAWKINS MD Ot Z82.49 FAMILY HX OF ISCHEM HEART DIS AND OTH DI 07/31/2017 MAKAYLA HAWKINS MD Ot Z85.528 PERSONAL HISTORY OF OTHER MALIGNANT NEOP 07/31/2017 MAKAYLA HAWKINS MD Ot Z86.010 PERSONAL HISTORY OF COLONIC POLYPS 07/31/2017 MAKAYLA HAWKINS MD Ot Z86.19 PERSONAL HISTORY OF OTHER INFECTIOUS AND 07/31/2017 MAKAYLA HAWKINS MD Ot Z87.19 PERSONAL HISTORY OF OTHER DISEASES OF 07/31/2017 MAKAYLA HAWKINS MD Ot Z87.440 PERSONAL HISTORY OF URINARY (TRACT) INFE 07/31/2017 MAKAYLA HAWKINS MD Ot Z88.0 ALLERGY STATUS TO PENICILLIN 07/31/2017 MAKAYLA HAWKINS MD Ot Z88.5 ALLERGY STATUS TO NARCOTIC AGENT STATUS 07/31/2017 MAKAYLA HAWKINS MD Ot Z90.710 ACQUIRED ABSENCE OF BOTH CERVIX AND UTER 07/31/2017 MAKAYLA HAWKINS MD Ot Z90.89 ACQUIRED ABSENCE OF OTHER ORGANS 07/31/2017 MAKAYLA HAWKINS MD Ot F32.9 MAJOR DEPRESSIVE DISORDER, SINGLE EPISOD 07/31/2017 MAKAYLA HAWKINS MD Ot F41.9 ANXIETY DISORDER, UNSPECIFIED 07/31/2017 MAKAYLA HAWKINS MD Ot G43.909 MIGRAINE, UNSP, NOT INTRACTABLE, WITHOUT 07/31/2017 MAKAYLA HAWKINS MD Ot J45.909 UNSPECIFIED ASTHMA, UNCOMPLICATED 07/31/2017 MAKAYLA HAWKINS MD Ot R07.2 PRECORDIAL PAIN 07/31/2017 MAKAYLA HAWKINS MD Ot W18.30XA FALL ON SAME LEVEL, UNSPECIFIED, INITIAL 07/31/2017 MAKAYLA HAWKINS MD Ot Z82.49 FAMILY HX OF ISCHEM HEART DIS AND OTH DI 07/31/2017 MAKAYLA HAWKINS MD Ot Z85.528 PERSONAL HISTORY OF OTHER MALIGNANT NEOP 07/31/2017 MAKAYLA HAWKINS MD Ot Z86.010 PERSONAL HISTORY OF COLONIC POLYPS 07/31/2017 MAKAYLA HAWKINS MD Ot Z86.19 PERSONAL HISTORY OF OTHER INFECTIOUS AND 07/31/2017 MAKAYLA HAWKINS MD Ot Z87.19 PERSONAL HISTORY OF OTHER DISEASES OF TH 07/31/2017 MAKAYLA HAWKINS MD Ot Z87.440 PERSONAL HISTORY OF URINARY (TRACT) INFE 07/31/2017 MAKAYLA HAWKINS MD Ot Z88.0 ALLERGY STATUS TO PENICILLIN 07/31/2017 MAKAYLA HAWKINS MD Ot Z88.5 ALLERGY STATUS TO NARCOTIC AGENT STATUS 07/31/2017 MAKAYLA HAWKINS MD Ot Z90.710 ACQUIRED ABSENCE OF BOTH CERVIX AND UTER 07/31/2017 MAKAYLA HAWKINS MD Ot Z90.89 ACQUIRED ABSENCE OF OTHER ORGANS 08/14/2017 MAKAYLA HAWKINS MD Ot F32.9 MAJOR DEPRESSIVE DISORDER, SINGLE EPISOD 08/14/2017 MAKAYLA HAWKINS MD Ot F41.9 ANXIETY DISORDER, UNSPECIFIED 08/14/2017 MAKAYLA HAWKINS MD Ot G43.909 MIGRAINE, UNSP, NOT INTRACTABLE, WITHOUT 08/14/2017 MAKAYLA HAWKINS MD Ot J45.909 UNSPECIFIED ASTHMA, UNCOMPLICATED 08/14/2017 MAKAYLA HAWKINS MD Ot K43.9 VENTRAL HERNIA WITHOUT OBSTRUCTION OR GA 08/14/2017 MAKAYLA HAWKINS MD Ot R10.9 UNSPECIFIED ABDOMINAL PAIN 08/14/2017 MAKAYLA HAWKINS MD Ot Z82.49 FAMILY HX OF ISCHEM HEART DIS AND OTH DI 08/14/2017 MAKAYLA HAWKINS MD Ot Z86.010 PERSONAL HISTORY OF COLONIC POLYPS 08/14/2017 MAKAYLA HAWKINS MD Ot Z86.19 PERSONAL HISTORY OF OTHER INFECTIOUS AND 08/14/2017 MAKAYLA HAWKINS MD Ot Z87.19 PERSONAL HISTORY OF OTHER DISEASES OF TH 08/14/2017 MAKAYLA HAWKINS MD Ot Z87.440 PERSONAL HISTORY OF URINARY (TRACT) INFE 08/14/2017 MAKAYLA HAWKINS MD Ot Z88.0 ALLERGY STATUS TO PENICILLIN 08/14/2017 MAKAYLA HAWKINS MD Ot Z88.5 ALLERGY STATUS TO NARCOTIC AGENT STATUS 08/14/2017 MAKAYLA HAWKINS MD Ot Z90.49 ACQUIRED ABSENCE OF OTHER SPECIFIED PART 08/14/2017 MAKAYLA HAWKINS MD Ot Z90.5 ACQUIRED ABSENCE OF KIDNEY 08/14/2017 MAKAYLA HAWKINS MD Ot Z90.710 ACQUIRED ABSENCE OF BOTH CERVIX AND UTER 08/14/2017 MAKAYLA HAWKINS MD Ot Z90.89 ACQUIRED ABSENCE OF OTHER ORGANS Procedures Code Description Performed By Performed On Otthelma Rochelle Jules 03/28/2010 65073 PAP SMEAR 08/02/2011 77264 EXCISION BENIGN LESION 1.1- 2 cm [facility] 05/12/2012 S0630 SUTURE REMOVAL 05/19/2012 20362 SKIN TISSUE PROCEDURE 06/05/2013 64539 US LIVER ULTRASOUND 06/05/2013 67037 OXIMETRY 09/12/2013 35573 OXIMETRY 09/16/2013 43392 THERAPUTIC INJ SQ/IM 09/16/2013 J2930 SOLUMEDROL INJ 09/16/2013 51816 OXIMETRY 09/17/2013 72955 XRAY ELBOW R 2 VIEWS 09/23/2013 87485 CULTURE UROGENITAL 09/24/2013 J2550 PHENERGAN INJECTION UP TO 50 MG 10/28/2013 89236 THERAPUTIC INJ SQ/IM 10/28/2013 04163 LIVER PANEL (LFT) 10/28/2013 40220 LIPASE 10/28/2013 63309 CBC 10/28/2013 73010 ROUTINE VENIPUNCTURE 01/21/2014 15883 UA W/ CULTURE IF INDICATED 01/21/2014 75105 CBC 01/22/2014 5476592 GFR CALC (RESULT ONLY) 01/22/2014 09810 CMP 01/22/2014 85907 CMP 04/27/2014 21192 TSH 04/27/2014 87538 CBC 04/27/2014 47895 ROUTINE VENIPUNCTURE 04/27/2014 44818 ROUTINE VENIPUNCTURE 05/10/2014 10610 XRAY RIBS RIGHT UNILATERAL 2 OR MORE VIEWS 05/10/2014 12118 UA W/ CULTURE IF INDICATED 05/10/2014 94513 CBC 05/10/2014 8886334 GFR CALC (RESULT ONLY) 05/10/2014 04172 CMP 05/10/2014 99691 AMYLASE 05/10/2014 47484 LIPASE 05/10/[address] ABDOMEN & PELVIS W/ & W/ O CONTRAST 05/17/2014 91921 XRAY CERVICAL SPINE, 2 OR 3 VIEWS 09/06/2014 27513 XRAY THORACIC SPINE 2 VIEWS 09/06/2014 39810 XRAY LUMBAR SPINE 2 OR 3 VIEWS [...] identification in genital specimen by aerobe culture [id number] NRG FREE TEXT EXTERNAL 2 PLUS NORMAL [...] calculation of estimated glomerular filtration rate > NR Serum or plasma glucose measurement (mass/volume) 85 [...] - 05/23/16 11:17 URINE CULTURE RESULTS <10,000/ML [facility] Streptococcus pyogenes antigen detection - 06/24/16 10:33 Streptococcus pyogenes antigen detection NEGATIVE NEGATIVE Bacterial throat culture - 06/24/16 10:33 Bacterial throat culture NBS [facility] Complete blood count (CBC) with automated white [...] - 07/22/17 22:35 Lipase 44 U/L 8-78 Complete urinalysis with reflex to culture - 07/29/17 08:17 Urine color determination YELLOW NRG Urine clarity [...] automated white blood cell (WBC) differential - 08/12/17 17:10 Blood leukocytes automated count (number/volume) 8.7 10*3/uL 4.3-11.0 Blood erythrocytes automated count (number/volume) 4.07 10*6/uL 4.35-5.85 Venous blood hemoglobin measurement (mass/volume) 11.7 g/dL 11.5-16.0 Blood hematocrit (volume fraction) 35 % 35-52 Automated erythrocyte mean corpuscular volume 85 [foz_us] 80-99 Automated erythrocyte mean corpuscular hemoglobin (mass per erythrocyte) 29 pg 25-34 Automated erythrocyte mean corpuscular hemoglobin concentration measurement ( mass/volume) 34 g/dL 32-36 Automated erythrocyte distribution width ratio 13.4 % 10.0-14.5 Automated blood platelet count (count/volume) 283 10*3/uL 130-400 Automated blood platelet mean volume measurement 9.3 [foz_us] 7.4-10.4 Automated blood neutrophils/100 leukocytes 63 % 42-75 Automated blood lymphocytes/100 leukocytes 30 [...] Complete urinalysis with reflex to culture - 08/12/17 17:10 Urine color determination YELLOW NRG Urine clarity [...] culture NO NRG Comprehensive metabolic panel - 08/12/17 17:10 Serum or plasma sodium measurement (moles/volume) 140 mmol/L 135-145 Serum or plasma potassium measurement (moles/volume) 3.7 mmol/L 3.6-5.0 Serum or plasma chloride measurement (moles/volume) 107 mmol/L 98-107 Carbon dioxide 22 mmol/L 21-32 Serum or plasma anion gap determination (moles/volume) 11 mmol/L 5-14 Serum or plasma urea nitrogen measurement (mass/volume) 15 mg/dL 7-18 Serum or plasma creatinine measurement (mass/volume) 0.81 mg/dL 0.60-1.30 Serum or plasma urea nitrogen/creatinine mass ratio 19 NRG Serum or plasma creatinine measurement with calculation of estimated glomerular filtration rate > NRG Serum or plasma glucose measurement (mass/volume) 163 mg/dL 70-105 Serum or plasma calcium measurement (mass/volume) 8.7 mg/dL 8.5-10.1 Serum or plasma total bilirubin measurement (mass/volume) 0.2 mg/dL 0.1-1.0 Serum or plasma alkaline phosphatase measurement (enzymatic activity/volume) 54 U/L 40-136 Serum or plasma aspartate aminotransferase measurement (enzymatic activity/ volume) 22 U/L 5-34 Serum or plasma alanine aminotransferase measurement (enzymatic activity/volume ) 17 U/L 0-55 Serum or plasma protein measurement (mass/volume) 6.8 g/dL 6.4-8.2 Serum or plasma albumin measurement (mass/volume) 3.6 g/dL 3.2-4.5 Serum or plasma phosphate measurement (mass/volume) - 08/12/17 17:10 Serum or plasma phosphate measurement (mass/volume) 2.6 mg/dL 2.3-4.7 Magnesium - 08/12/17 17:10 Magnesium 1.9 mg/dL 1.8-2.4 Lipase - 08/12/17 17:10 Lipase 41 U/L 8-78 Encounters ACCT No. Visit Date/Time Discharge Status Pt. Type Provider Facility Loc./Unit Complaint [id number] 09/06/2014 08:47:00 09/06/2014 23:59:59 CLS Outpatient EMIL ROLON DO [id number] 09/06/2014 08:47:00 09/06/2014 23:59:59 CLS Outpatient ANSON WADE APRN [id number] 08/17/2014 09:19:00 08/17/2014 23:59:59 CLS Outpatient CARMEN GIBBS MD [id number] 07/21/2014 07:46:00 07/21/2014 23:59:59 CLS Outpatient CARMEN GIBBS MD [id number] 07/05/2014 10:18:00 07/05/2014 23:59:59 CLS Outpatient ANSON WADE APRN [id number] 06/03/2014 15:45:00 06/03/2014 23:59:59 CLS Outpatient CARMEN GIBBS MD [id number] 05/31/2014 12:15:00 05/31/2014 23:59:59 CLS Outpatient ELLIOT MORENO DDS [id number] 05/25/2014 10:56:00 05/25/2014 23:59:59 CLS Outpatient RAQUEL TOBIAS APRN [id number] 05/17/2014 10:52:00 05/17/2014 23:59:59 CLS Outpatient ANSON WADE APRN [id number] 05/10/2014 09:54:00 05/10/2014 23:59:59 CLS Outpatient ANSON WADE APRN [id number] 04/27/2014 13:25:00 04/27/2014 23:59:59 CLS Outpatient CARMEN GIBBS MD [id number] 03/30/2014 15:35:00 03/30/2014 23:59:59 CLS Outpatient RAQUEL TOBIAS APRN [id number] 02/24/2014 14:34:00 02/24/2014 23:59:59 CLS Outpatient BRENNA LOBATO APRN [id number] 02/05/2014 15:30:00 02/05/2014 23:59:59 CLS Outpatient CARMEN GIBBS MD [id number] 01/21/2014 15:35:00 01/21/2014 23:59:59 CLS Outpatient ROLON EMIL GAMING Vickey [id number] 01/13/2014 00:00:00 01/13/2014 23:59:59 CLS Outpatient MICHELINE RAQUEL BAUMANN Jermaine [id number] 12/15/2013 14:31:00 12/15/2013 23:59:59 CLS Outpatient CARMEN GIBBS MD [id number] 11/03/2013 09:45:00 11/03/2013 23:59:59 CLS Outpatient ANSON WADE APRN Benji [id number] 10/28/2013 15:00:00 10/28/2013 23:59:59 CLS Outpatient BRENNA LOBATO APRN Jermaine [id number] 10/28/2013 15:00:00 10/28/2013 23:59:59 CLS Outpatient LUIS ALFREDO YUNEMERYBRENNA R [id number] 09/28/2013 08:54:00 09/28/2013 23:59:59 CLS Outpatient KMI YUShahnaz OSMAN Juan [id number] 09/23/2013 10:48:00 09/23/2013 23:59:59 CLS Outpatient ROLON EMIL GAMING Vickey [id number] 09/23/2013 10:48:00 09/23/2013 23:59:59 CLS Outpatient ROLON DOEMIL Vickey [id number] 09/17/2013 14:15:00 09/17/2013 23:59:59 CLS Outpatient ROLON DOEMIL Vickey [id number] 09/16/2013 14:57:00 09/16/2013 23:59:59 CLS Outpatient ROLON DOEMIL Vickey [id number] 09/16/2013 14:57:00 09/16/2013 23:59:59 CLS Outpatient ROLON DO EMIL Hurd [id number] 09/12/2013 13:04:00 09/12/2013 23:59:59 CLS Outpatient OSMAN ALVAREZ APRN [id number] 09/03/2013 11:29:00 09/03/2013 23:59:59 CLS Outpatient CARMEN GIBBS MD [id number] 07/01/2013 08:59:00 07/01/2013 23:59:59 CLS Outpatient CARMEN GIBBS MD [id number] 06/05/2013 14:44:00 06/05/2013 23:59:59 CLS Outpatient EMIL ROLON DO [id number] 06/02/2013 12:44:00 06/02/2013 23:59:59 CLS Outpatient RAQUEL LOPEZ DDS [id number] 05/29/2013 15:47:00 05/29/2013 23:59:59 CLS Outpatient CARMEN GIBBS MD [id number] 05/27/2013 09:28:00 05/27/2013 23:59:59 CLS Outpatient CARMEN GIBBS MD [id number] 05/12/2013 15:16:00 05/12/2013 23:59:59 CLS Outpatient ELLY DOUGLAS MD [id number] 08/20/2012 15:44:00 08/20/2012 23:59:59 CLS Outpatient EMIL ROLON DO [id number] 07/07/2012 11:21:00 07/07/2012 23:59:59 CLS Outpatient BRENNA LOBATO APRN [id number] 07/02/2012 09:18:00 07/02/2012 23:59:59 CLS Outpatient [id number] 05/20/2012 10:05:00 05/20/2012 23:59:59 CLS Outpatient REGINO BOYD DDS [id number] 04/10/2012 08:55:00 04/10/2012 23:59:59 CLS Outpatient SUDHIR ROLON DOA Vickey [id number] 08/20/2017 05:40:00 08/20/2017 13:12:00 DIS Outpatient YUNIOR LYLES MD [facility] PREOP SYMPTOMATIC VENTRAL ABDOMINAL INCISIONAL HERNIA [id number] 08/12/2017 15:42:00 08/12/2017 19:26:00 DIS Outpatient MAKAYLA HAWKINS MD [facility] ER LEFT SIDE PAIN [id number] 07/29/2017 07:04:00 07/29/2017 11:33:00 DIS Emergency MAKAYLA HAWKINS MD [facility] ER FALL ON ICE--BILATERAL ARM PAIN [id number] 07/22/2017 21:10:00 07/23/2017 02:12:00 DIS Emergency YUKI MARCH MD [facility] ER STOMACH PAIN [id number] 07/03/2017 08:18:00 07/03/2017 12:40:00 DIS Outpatient YUNIOR LYLES MD [facility] ENDO HX POLYPS [id number] 06/29/2017 18:40:00 06/29/2017 21:31:00 DIS Emergency JOAQUIM PARISH, YUKI Machado [facility] ER DARK URINE,STOMACH PAIN, THROWING UP,PANCREATITIS [id number] 06/28/2017 10:00:00 06/28/2017 10:11:00 DIS Outpatient YUNIOR LYLES MD [facility] PREOP COLONOSCOPY [id number] 05/30/2017 13:43:00 05/30/2017 15:03:00 DIS Emergency GEORGES FINN APRN [facility] ER CANNOT URINATE [id number] 04/30/2017 01:09:00 04/30/2017 03:16:00 DIS Emergency YAN CHAPARRO DO [facility] ER LOWER ABD PAIN [id number] 04/17/2017 20:45:00 04/18/2017 01:11:00 DIS Emergency KIARA MORRISON [facility] ER ABDOMINAL PAIN,KIDNEY SURGERY ON 04/10 [id number] 04/13/2017 16:02:00 04/13/2017 18:36:00 DIS Emergency GEORGES FINN APRN [facility] ER NO BOWEL MOVEMENT, KIDNEY SURGERY ON 04/10,RASH [id number] 03/14/2017 00:17:00 03/14/2017 06:22:00 DIS Emergency YUKI MARCH MD [facility] ER ABD PAIN [id number] 03/07/2017 08:45:00 03/07/2017 12:32:00 DIS Emergency IZABELA RENDON MD [facility] ER ABD PAIN [id number] 02/21/2017 06:02:00 02/21/2017 07:06:00 DIS Emergency MAKAYLA HAWKINS MD [facility] ER GLENNA ON NECK-HOT,MEJIA, HURTS TO SWALLOW [id number] 01/30/2017 23:32:00 01/31/2017 00:22:00 DIS Emergency YAN CHAPARRO DO [facility] ER POSS ALLERGIC RXN [id number] 12/01/2016 16:29:00 12/01/2016 19:04:00 DIS Emergency ADRIÁN PARKS MD [facility] ER FEVER/THROAT PAIN [id number] 10/26/2016 12:59:00 10/26/2016 14:50:00 DIS Emergency KIARA MORRISON [facility] ER VAGINAL DISCOMFORT [id number] 10/11/2016 15:52:00 10/11/2016 18:28:00 DIS Emergency GEOVANI HERNANDEZ [facility] ER SOA,ABD PAIN WHEN BREATHING, NUMBNESS IN ARMS [id number] 08/28/2016 08:49:00 08/28/2016 23:59:59 CLS Outpatient CARMEN GIBBS MD [facility] RAD NECK MASS [id number] 08/16/2016 12:45:00 08/16/2016 23:59:59 CLS Preadmit CARMEN GIBBS MD [facility] RAD HEMOPLYSIS,NECK MASS [id number] 08/16/2016 12:21:00 08/16/2016 23:59:59 CLS Outpatient CARMEN GIBBS MD [facility] RAD HEMOPLYSIS,NECK MASS [id number] 08/05/2016 10:59:00 08/05/2016 14:43:00 DIS Emergency KIARA MORRISON [facility] ER ABD PAIN TO BACK [id number] 06/24/2016 09:45:00 06/24/2016 11:04:00 DIS Emergency ADRIÁN PARKS MD [facility] ER SORE THROAT/COUGH/GREEN SPUTUM/DIZZY [id number] 05/30/2016 06:46:00 05/30/2016 10:08:00 DIS Outpatient ROCHELLE CANNON MD [facility] SDC RIGHT KNEE TORM MEDIAL MENISCUS [id number] 05/23/2016 10:59:00 05/23/2016 12:12:00 DIS Emergency 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 [facility] ER FATIGUE [id number] 05/23/2016 09:58:00 05/23/2016 10:43:00 DIS Outpatient ROCHELLE CANNON MD [facility] PREOP RIGHT KNEE TORN MEDIAL MENISCUS [id number] 05/02/2016 15:02:00 05/02/2016 23:59:59 CLS Outpatient ROCHELLE CANNON MD [facility] RAD [id number] 03/05/2016 16:10:00 03/05/2016 19:42:00 DIS Emergency JOAQUIM PARISH, YUKI Machado [facility] ER VAGINAL BLEEDING [id number] 12/21/2015 10:36:00 12/21/2015 14:35:00 DIS Inpatient CARMEN GIBBS MD [facility] 4TH CELLULITIS [id number] 12/19/2015 11:50:00 12/19/2015 14:29:00 DIS Emergency 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 [facility] ER RIGHT LEG PAIN [id number] 12/18/2015 12:43:00 12/18/2015 16:00:00 DIS Emergency KIARA MORRISON [facility] ER R LEG KNOT POST SURGERY [id number] 12/12/2015 09:12:00 12/12/2015 23:59:59 CLS Outpatient ROCHELLE CANNON MD [facility] RAD DVT [id number] 11/24/2015 13:16:00 11/24/2015 23:59:59 CLS Outpatient ROCHELLE CANNON MD [facility] RAD MEDIAL MENISCUS TEAR [id number] 09/06/2015 07:15:00 09/06/2015 13:25:00 DIS Outpatient YUNIOR LYLES MD [facility] SDC LYMPHADEROPATHY [id number] 08/31/2015 11:25:00 08/31/2015 11:53:00 DIS Outpatient YUNIOR LYLES MD [facility] PREOP LIMP NODE [id number] 06/22/2015 10:51:00 06/22/2015 23:59:59 CLS Preadmit CARMEN GIBBS MD [facility] REHAB [id number] 06/08/2015 06:16:00 06/08/2015 11:35:00 DIS Outpatient ROCHELLE CANNON MD [facility] SDC RIGHT KNEE TORN MEDIAL MENISCUS [id number] 06/02/2015 10:22:00 06/02/2015 23:59:59 CLS Outpatient CARMEN GIBBS MD [facility] LAB HLP [id number] 06/02/2015 10:13:00 06/02/2015 23:59:59 CLS Outpatient ROCHELLE CANNON MD [facility] PREOP RIGHT KNEE TORN MEDIAL MENISCUS [id number] 05/19/2015 08:58:00 05/19/2015 23:59:59 CLS Outpatient ROCHELLE CANNON MD [facility] RAD QUADRICEPT TENDONITIS [id number] 01/12/2015 14:32:00 01/12/2015 23:59:59 CLS Outpatient DEE BAH MD [facility] RAD CERVICAL STENOSIS LUMBAR STENOSIS [id number] 11/23/2014 23:46:00 11/24/2014 02:37:00 DIS Emergency IZABELA RENDON MD [facility] ER ABD PAIN [id number] 09/13/2014 09:03:00 09/13/2014 11:31:00 DIS Emergency IZABELA RENDON MD [facility] ER BACK PAIN [id number] 09/04/2014 13:48:00 09/04/2014 15:54:00 DIS Emergency 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 [facility] ER BACK PAIN [id number] 05/28/2014 01:35:00 05/28/2014 03:07:00 DIS Emergency ISSAC MASTRES MD [facility] ER POSS ALLERGIC RXN,HEAD PAIN [id number] 05/27/2014 08:20:00 05/27/2014 10:31:00 DIS Emergency RADHA MALLORY MD [facility] ER HEADACHE/NAUSEA [id number] 03/21/2014 17:22:00 03/21/2014 18:07:00 DIS Emergency SHANKAR YAN GAMING [facility] ER CRAMPING [id number] 02/04/2014 08:30:00 02/04/2014 23:59:59 CLS Outpatient 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 [facility] CARD HTN,DYSPNEA [id number] 01/19/2014 13:10:00 01/19/2014 14:04:00 DIS Emergency SHANKAR DOYAN [facility] ER LOW BACK PAIN/UTI SYMPTOMS [id number] 11/20/2013 16:25:00 11/20/2013 17:42:00 DIS Emergency 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 [facility] ER BACK PAIN [id number] 10/29/2013 10:28:00 10/29/2013 12:02:00 DIS Emergency SHANKAR DOYAN [facility] ER NAUSEATED/VOMITING [id number] 10/06/2013 15:24:00 10/06/2013 18:34:00 DIS Emergency KIARA MORRISON [facility] ER ABD PAIN [id number] 09/07/2013 07:08:00 09/08/2013 12:30:00 DIS Outpatient TATA TOMAS MD [facility] SDC COCCYGDYNIA [id number] 09/01/2013 13:39:00 09/01/2013 23:59:59 CLS Outpatient TATA TOMAS MD [facility] PREOP COCCYGDYNIA [id number] 07/31/2013 06:31:00 07/31/2013 07:53:00 DIS Outpatient LUIS MORENO MD [facility] CARD COCCYX PAIN [id number] 06/30/2013 07:14:00 06/30/2013 23:59:59 CLS Outpatient RONY ALDANA APRN [facility] RAD ELEVATED LIVER ENZYMES [id number] 06/25/2013 16:02:00 06/25/2013 19:00:00 DIS Emergency ISSAC MASTERS MD [facility] ER NAUSEA,VOMITING [id number] 06/04/2013 21:16:00 06/04/2013 21:44:00 DIS Emergency YAN CHAPARRO DO Vickey [facility] ER WOUND CHECK [id number] 05/29/2013 20:51:00 05/30/2013 01:31:00 DIS Emergency KIARA MORRISON [facility] ER POSS ABSCESS [id number] 05/28/2013 10:15:00 05/28/2013 18:57:00 DIS Emergency YAN CHAPARRO DO Vickey [facility] ER LEFT LEG KNOT [id number] 05/11/2013 19:26:00 05/11/2013 19:56:00 DIS Emergency GEORGES FINN APRN [facility] ER RASH [id number] 05/03/2013 09:13:00 05/03/2013 11:33:00 DIS Emergency [place]ICE [place], IZABELA Martinez [facility] ER ABD CRAMPING [id number] 03/08/2013 15:14:00 03/08/2013 16:28:00 DIS Emergency SHANKAR DORONNIA Vickey [facility] ER HEADACHE [id number] 02/12/2013 14:02:00 02/12/2013 16:12:00 DIS Emergency RADHA MALLORY MD [facility] ER HEADACHE [id number] 02/03/2013 09:00:00 02/03/2013 23:59:59 CLS Outpatient [id number] 01/25/2013 16:03:00 01/25/2013 16:39:00 DIS Emergency SHANKAR YAN [facility] ER TAILBONE THROBS [id number] 01/23/2013 07:33:00 01/23/2013 23:59:59 CLS Outpatient LUIS MORENO MD [facility] CARD COCCYX PAIN [id number] 12/30/2012 11:28:00 12/30/2012 12:33:00 DIS Emergency [place]PH [place], JOHN Dean [facility] ER LOOSING FEELING IN HANDS [id number] 11/29/2012 20:20:00 11/29/2012 21:04:00 DIS Emergency ISSAC MASTERS MD [facility] ER POST OP COMPLICATIONS [id number] 11/01/2012 13:48:00 11/01/2012 16:16:00 DIS Emergency YAN CHAPARRO DO [facility] ER R SIDE ABD PAIN [id number] 08/22/2017 12:30:00 PEN Preadmit YUNIOR LYLES MD [facility] SYMPTOMATIC VENTRAL ABDOMINAL INCISIONAL HERNIA [id number] 05/28/2014 05:09:00 Document Registration [id number] 05/28/2014 05:09:00 Document Registration [id number] 05/28/2014 05:08:00 Document Registration [id number] 05/28/2014 05:08:00 Document Registration [id number] 05/28/2014 05:08:00 Document Registration [id number] 09/25/2012 15:23:00 Document Registration [id number] 07/09/2012 13:55:00 Document Registration [id number] 06/03/2012 18:43:00 Document Registration [id number] 05/28/2012 06:01:00 Document Registration [id number] 05/26/2012 07:40:00 Document Registration [id number] 04/29/2012 19:28:00 Document Registration [id number] 04/14/2012 20:36:00 Document Registration [id number] 04/02/2012 15:46:00 Document Registration [id number] 03/10/2012 08:51:00 Document Registration [id number] 02/02/2012 08:22:00 Document Registration [id number] 11/05/2011 18:15:00 Document Registration [id number] 10/09/2011 15:34:00 Document Registration [id number] 09/28/2011 12:13:00 Document Registration [id number] 08/20/2011 11:21:00 Document Registration [id number] 08/07/2011 12:50:00 Document Registration [id number] 06/19/2011 15:10:00 Document Registration [id number] 06/14/2011 10:23:00 Document Registration [id number] 04/26/2011 09:49:00 Document Registration [id number] 04/01/2011 15:48:00 Document Registration [id number] 01/14/2011 20:10:00 Document Registration [id number] 01/10/2011 01:57:00 Document Registration [id number] 12/29/2010 21:29:00 Document Registration [id number] 12/08/2010 18:15:00 Document Registration [id number] 11/16/2010 19:34:00 Document Registration [id number] 11/13/2010 17:20:00 Document Registration [id number] 10/07/2010 15:04:00 Document Registration [id number] 10/01/2010 20:35:00 Document Registration [id number] 09/29/2010 15:45:00 Document Registration [id number] 09/22/2010 00:30:00 Document Registration [id number] 09/20/2010 18:21:00 Document Registration [id number] 09/16/2010 19:14:00 Document Registration [id number] 09/06/2010 15:05:00 Document Registration [id number] 08/30/2010 16:23:00 Document Registration [id number] 07/31/2010 10:04:00 Document Registration [id number] 07/24/2010 05:42:00 Document Registration [id number] 07/12/2010 09:04:00 Document Registration [id number] 07/02/2010 12:40:00 Document Registration [id number] 06/07/2010 10:52:00 Document Registration [id number] 05/22/2010 18:40:00 Document Registration [id number] 05/09/2010 13:26:00 Document Registration [id number] 04/07/2010 16:51:00 Document Registration [id number] 03/31/2010 12:30:00 Document Registration [id number] 03/22/2010 20:54:00 Document Registration [id number] 02/13/2010 10:21:00 Document Registration [id number] 02/07/2010 17:04:00 Document Registration [id number] 02/05/2010 19:55:00 Document Registration [id number] 01/23/2010 10:58:00 Document Registration [id number] 01/09/2010 05:35:00 Document Registration [id number] 01/05/2010 07:39:00 Document Registration [id number] 12/13/2009 10:13:00 Document Registration [id number] 11/07/2009 17:37:00 Document Registration [id number] 11/03/2009 09:46:00 Document Registration
[2017-08-22] MEDS ORDERED: ONDANSETRON 4 MG/2 ML (SDV) Z0FRAN IVP PRN ×2 (12:15→14:45)
[2017-08-22] MEDS ORDERED: ACETAMINOPHEN 325 MG TABLET/CAPLET (TYLENOL) PO PRN (12:15)
[2017-08-22] MEDS ORDERED: morphine INJ 10 MG/ML 1ML (SYR OR VIAL) IVP PRN (12:15)
[2017-08-22] MEDS ORDERED: HYDROcodone/APAP 5 MG/325 MG (LORTAB) TAB PO ONE (12:15)
[2017-08-22] MEDS ORDERED: SEVOFLURANE (ULTANE) 15 ML INHAL SOLN ONE (12:49)
[2017-08-22] MEDS ORDERED: DESFLURANE (SUPRANE) 15 ML INHAL SOLN ONE ×6 (12:49→14:14)
[2017-08-22] MEDS ORDERED: LACTATED RINGERS 1,000 ML IV ONE (13:05)
[2017-08-22] MEDS ORDERED: BUP/EPI 0.5% 1:200,000 (SENSORCAINE) 30 ML VIAL INJ ONE (13:15)
[2017-08-22] MEDS ORDERED: GLYCOPYRROLATE 0.2 MG/ML (ROBINUL) 2 ML VIAL ONE (14:08)
[2017-08-22] MEDS ORDERED: NEOSTIGMINE 1 MG/ML 5 ML SYRINGE ONE (14:08)
--- NOTE | 2017-08-22 14:11 | Progress Note-Post Operative ---
Post-Operative Progess Note Surgeon (s)/Middle School Teacher (s) Surgeon YUNIOR LYLES MD Middle School Teacher: negin jack APRN Pre-Operative Diagnosis symptomatic reducible ventral abd inc hernia. Post-Operative Diagnosis symptomatic reducible ventral abd left spigellian inc hernia. Procedure & Operative Findings Date of Procedure 08/22/17 Procedure Performed/Findings open ventral abd inc hernia repair with mesh. Anesthesia Type GET Estimated Blood Loss Estimated blood loss (mL): minimal Specimens/Packing Specimens Removed none YUNIOR LYLES MD Aug 22, 2017 2:11 pm
[2017-08-22] MEDS ORDERED: HYDR-34 PO (14:12)
--- NOTE | 2017-08-22 14:13 | Discharge Inst-Surgical ---
D/C Lap Instructions-TRUPTI New, Converted, or Re-Newed RX: RX on Chart Follow Up Appt in 2 weeks Activity as tolerated No driving for 24 hours No driving while on pain medications Incentive Spirometry use every 2 hours while awake Regular Diet Symptoms to Report: Fever over 101 degree F, Nausea/Vomiting Infection Signs and Symptoms to report: Increased redness, Foul odor of wound, Increased drainage Bathing instructions: May shower Operative Area Clean/Dry; Keep incision clean/dry If any problems/questions: Contact your physician or go to Emergency Room YUNIOR LYLES MD Aug 22, 2017 2:13 pm
[2017-08-22] MEDS: morphine INJ 10 MG/ML 1ML (SYR OR VIAL) IVP PRN ×2 (14:40→14:45)
--- NOTE | 2017-08-22 14:42 | Anesthesia-General Post-Op ---
General Patient Condition Mental Status/LOC: Same as Preop Cardiovascular: Satisfactory Nausea/Vomiting: Absent Respiratory: Satisfactory Pain: Controlled Complications: Absent Post Op Complications Complications None Follow Up Care/Instructions Patient Instructions None needed. Anesthesia/Patient Condition Patient Condition Patient is doing well, no complaints, stable vital signs, no apparent adverse anesthesia problems. No complications reported per nursing. POPPY MI CRNA Aug 22, 2017 14:42
[2017-08-22] MEDS ORDERED: HYDROmorphone (DILAUDID) 2 MG/ML VIAL ONE (14:59)
[2017-08-22 15:55] VITALS: BP 120/72
[2017-08-22 15:56] VITALS: BP 120/72
[2017-08-22] MEDS ORDERED: HYDROcodone/APAP 5 MG/325 MG (LORTAB) TAB ONE (16:05)
[2017-08-22 16:25] VITALS: BP 98/64
[2017-08-22 16:55] VITALS: BP 100/54
--- NOTE | 2017-08-22 22:11 | OPERATIVE REPORT ---
DATE OF SERVICE: 08/22/2017 ATTENDING PRIMARY CARE PHYSICIAN: Dr. Mary Whittington. PREOPERATIVE DIAGNOSIS: Symptomatic reducible ventral abdominal incisional hernia. POSTOPERATIVE DIAGNOSIS: Symptomatic ventral abdominal spigelian incisional hernia. PROCEDURE: Open ventral abdominal incisional hernia repair with mesh. SURGEON: Dr. Lyles. WILDLIFE POLICY PROFESSIONAL: Jose Austin APRN. ANESTHESIA: General endotracheal. ESTIMATED BLOOD LOSS: Minimal. FINDINGS: Intact external oblique with a defect identified between the lateral border of the rectus abdominis muscle and the aponeurosis of the transversalis fascia. This is near her previous recent nephrectomy incision consistent with an incisional spigelian hernia. DISPOSITION: The patient tolerated the procedure well. INDICATIONS: The patient is a 32-year-old female known to us. 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 She also has a history of polyhidrosis and idiopathic chronic pancreatitis. She has had symptoms related to diabetes on an intermittent basis. On 06/24/2017, she underwent a colonoscopy. Three months prior to this, she was seen in the Emergency Department where a CT scan was performed. She was found to have a lesion of the left kidney and was found to have a stage III left renal cell cancer and underwent a left nephrectomy on 04/11/2017. She reports that in the past several months she has had pain and a palpable bulge in the previous incision site. A CT scan was performed which did show a herniation of peritoneal contents which was examined in the office is reducible; however, significantly tender to palpation. DESCRIPTION OF PROCEDURE: The patient was brought to the operating room, laid supine on the table. After adequate IV pain and sedating medications and general endotracheal intubation, the abdomen was prepped and draped in standard surgical fashion. 0.5% Marcaine with epinephrine was then used to anesthetize the overlying skin in the left lower abdominal quadrant. A transverse skin incision made along the previous nephrectomy incision site was made using 15 blade. Subcutaneous tissue was dissected down using electrocautery to the anterior fascia was identified. The entire anterior fascia was intact with no defects within the fascia. The anterior fascia was then opened using Metzenbaum scissors, identifying the peritoneal lining as well as a significant sized hernia as well as a defect within the fascia of the internal oblique and the transversalis fascia consistent with a spigelian hernia. All of the adhesive attachments towards the peritoneum were then taken down using electrocautery as well as blunt dissection. The area over the overlying the external oblique was then cleared off using electrocautery as well as blunt dissection. A large 8 cm coated polypropylene mesh was then placed into the defect. We then proceeded to approximate the external oblique as well as the aponeurotic fibers of the internal oblique and the transversalis fascia to the mesh without any tension using interrupted 0 Prolene sutures. We proceeded in a systematic manner concentrically around the mesh. Good hemostasis was observed. The subcutaneous tissue was then reapproximated using 3-0 Vicryl interrupted sutures. Skin was closed using 4-0 Monocryl running subcuticular suture. Wound was then cleaned and covered with Dermabond. The patient tolerated the procedure well. We will start IV and oral pain medication as well as a clear liquid diet. Once she is tolerating clears, has good pain control with oral pain medications, and ambulating well, we will discharge her home. She will be instructed to do no heavy lifting or exertion for the next six weeks. Job ID: [id number] DocumentID: [id number] Dictated Date: 08/22/2017 14:20:44 Combat Systems Operator Date: 08/22/2017 22:10:59 Dictated By: YUNIOR LYLES MD MTDD
== END 2017-08-22 17:45 | disposition home or self-care (01) ==
LOC: SDC 10:45
PROVIDERS: ATTEND Surgery
DX: K43.2 Incisional hernia without obstruction or gangrene (principal); J45.909 Unspecified asthma, uncomplicated; F41.9 Anxiety disorder, unspecified; F32.9 Major depressive disorder, single episode, unspecified; K86.1 Other chronic pancreatitis; G25.81 Restless legs syndrome; C64.2 Malignant neoplasm of left kidney, except renal pelvis; Z90.5 Acquired absence of kidney; Z79.899 Other long term (current) drug therapy
CPT/HCPCS: 87081; 94664

== ENCOUNTER 2017-08-30 21:32 | Emergency (ER) | payer MEDICARE, MEDICAID ==
[~2017-08-30] VITALS: Ht 157.5 cm; Wt 108.9 kg
[2017-08-30] MEDS ORDERED: RX-TRIMETH/SULFA. 160-800 MG (BACTRIM DS) TAB PPK#2 PO STA (23:17)
[2017-08-30] MEDS ORDERED: SULF1TAB35 PO (23:19)
--- NOTE | 2017-08-30 23:19 | ED Integumentary General ---
General Chief Complaint: Skin/Wound Problems Stated Complaint: INCISION SITE INFECTION Nursing Triage Note: PATIENT HAD HERNIA REPAIR WITH MESH BY DR LYLES ON 08/22. SHE HAS NOTICED THAT HER WOUND IS WARM AND SWOLLEN AND DRAINING GREEN FLUID. SHE ALSO STATES IT IS BLISTERING AND OOZING. Source: patient History of Present Illness Date Seen by Provider: Aug 30, 2017 Time Seen by Provider: 23:06 Initial Comments PT ARRIVES VIA POV FROM HOME STATES SHE HAD HERNIA REPAIR DONE BY DR. LYLES LAST Saturday08/22/17--LEFT LATERAL ABDOMINAL INCISIONAL HERNIA STATES SHE HAS HAD GREEN DRAINAGE FROM THE INCISION, ALONG WITH SWELLING AND ITCHING AND "BLISTERS" TO AREA NO FEVER NO NAUSEA/VOMITING NO CONSTIPATION OR DIARRHEA NO SIGNIFICANT PAIN TO AREA PT STATES SHE HAS AN APPOINTMENT WITH DR. LYLES NEXT SATURDAY FOR POST OP EXAM. SHE HAS NOT ATTEMPTED TO CONTACT HIM PT STATES SHE CONTACTED SURGEON PACKING ROOM SUPERVISOR, DR. MADDOX, WHO TOLD HER TO COME HERE PT WITH MULTITUDE OF VISITS--5 ER VISITS IN 2018 --VARIOUS COMPLAINTS Allergies and Home Medications Allergies Coded Allergies: meperidine (Verified Allergy, Unknown, 08/20/17) penicillin G (Verified Allergy, Unknown, 08/20/17) Home Medications Cholecalciferol (Vitamin D3) 2,000 Unit Tablet, 2,000 UNIT PO HS, (Reported) Cyanocobalamin 1,000 Mcg/Ml Inj, 1,000 MCG IJ MONTHLY, (Reported) Estradiol 2 Mg Tablet, 3 MG PO HS, (Reported) TAKES 1 & 1/2 (2MG) TABLETS Fluoxetine HCl 40 Mg Capsule, 40 MG PO HS, (Reported) Hydrocodone Bit/Acetaminophen 1 Ea Tablet, 1-2 EACH PO Q4H Prescribed by: YUNIOR LYLES on 08/22/17 1412 Ondansetron HCl 8 Mg Tablet, 8 MG PO PRN, (Reported) Polyethylene Glycol 3350 17 Gm Powd.pack, 17 GM PO BID PRN PRN for CONSTIPATION- 1ST LINE Prescribed by: MAKAYLA HAWKINS on 08/12/171912 Ropinirole HCl 4 Mg Tablet, 4 MG PO HS, (Reported) Sulfamethoxazole/Trimethoprim 1 Each Tablet, 1 EACH PO BID Prescribed by: YAN CHAPARRO on 08/30/17 8425 Patient Home Medication List Home Medication List Reviewed: Yes Constitutional: no symptoms reported Gastrointestinal: No abdominal pain, No constipation, No diarrhea, No nausea, No vomiting Genitourinary: no symptoms reported Musculoskeletal: no symptoms reported Skin: see HPI Past Hricfaq-Gqbgiw-Biiphj Hx Patient Social History Alcohol Use: Denies Use Recreational Drug Use: No Smoking Status: Former Smoker Type Used: Cigarettes 2nd Hand Smoke Exposure: No Recent Foreign Travel: No Contact w/Someone Who Travel: No Recent Infectious Disease Expo: No Recent Hopitalizations: No Physical Abuse: No Sexual Abuse: No Immunizations Up To Date Tetanus Booster (TDap): Unknown PED Vaccines UTD: No Date of Pneumonia Vaccine: May 17, 2012 Date of Influenza Vaccine: Jul 03, 2012 Seasonal Allergies Seasonal Allergies: Yes (MILD) Surgeries History of Surgeries: Yes (R KNEE SCOPE X5 L X2, NASAL FX, EGD/COLONOSCOPY, COCCYX REMOVAL,LEFT NEPHRECTOMY; LEFT INCISIONAL HERNIA REPAIR 08/22/17) Surgeries: Abdominal, Adenoidectomy, Appendectomy, Gallbladder, 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, Nephrectomy, Orthopedic, Tonsillectomy Respiratory History of Respiratory Disorde: Yes (HASNT USED INHALER IN > 4 YRS) Respiratory Disorders: Asthma Currently Using CPAP: No Currently Using BIPAP: No Cardiovascular History of Cardiac Disorders: No Neurological History of Neurological Disord: Yes (RESTLESS LEG SYNDROME) Neurological Disorders: Headaches /Migraines 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 System Hx 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: No Sexually Transmitted Disease: No HIV/AIDS: No 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 HAT BLOCK MAKER History: 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 Genitourinary History of Genitourinary Disor: Yes (L KIDNEY REMOVED FOR TUMOR; FATTY LIVER/ ENLARGED LIVER) Genitourinary Disorders: UTI-Chronic Gastrointestinal History of Gastrointestinal Di: Yes (ENLARGED LIVER) Gastrointestinal Disorders: Chronic Constipation, Pancreatitis, Polyps Musculoskeletal History of Musculoskeletal Dis: Yes (COCCYX-REPAIRED, MAY HAVE SIGNS OF ARTHRITIS) Musculoskeletal Disorders: Chronic Back Pain Endocrine History of Endocrine Disorders: Yes (CHRONIC PANCREATITIS) HEENT History of HEENT Disorders: No Loss of Vision: Denies Hearing Impairment: Denies Cancer History of Cancer: Yes Cancer: Kidney Type of Tx Receive: Surgical Intervention Psychosocial History of Psychiatric Problem: Yes Behavioral Health Disorders: Anxiety, Depression Suicide Risk Score: 0 Integumentary History of Skin or Integumenta: No Skin/Integumentary Disorders: Herpes Blood Transfusions History of Blood Disorders: No Adverse Reaction to a Blood Tr: No (N/A) Family Medical History Significant Family History: Cancer, Diabetes, Hypertension Family Medial History: Cardiovascular disease 19 FATHER Completed stroke 19 FATHER Diabetes mellitus 19 FATHER Hypercholesterolemia 19 FATHER 19 MOTHER Hypertension 19 FATHER 19 MOTHER Neoplasm 19 MOTHER Psychosocial problem 19 FATHER 19 MOTHER Physical Exam Vital Signs Vital Signs - First Documented 08/30/17 21:58 Temp 97.4 Pulse 104 Resp 20 B/P (MAP) 107/92 (97) Pulse Ox 97 O2 Delivery Room Air Capillary Refill : Less Than 3 Seconds General Appearance: WD/WN, no apparent distress, obese Gastrointestinal: soft, other (LEFT LATERAL ABDOMEN--INCISION WITH DERMABOND COVERING IT. INCISION APPEARS INTACT, WITH NO DRAINAGE NOTED AT THIS TIME. PT DOES NOT HAVE ANY DRESSING OVER THE AREA, BUT IS WEARING AN ABDOMINAL BINDER, WHICH DOES NOT HAVE ANY DRAINAGE. NO SURROUINDING ERYTHEMA OR INDURATION OR SWELLING OR FLUCTUANCE. NO VESICLES/PAPULES/PUSTULES, ETC. ) Neurologic/Psychiatric: horse racing manager II-XII nml as tested, no motor/sensory deficits, alert, normal mood/affect, oriented x 3 Progress/Results/Core Measures Results/Orders My Orders Orders - YAN CHAPARRO DO Rx-Trimeth/Sulfameth Ds Tab (Rx-Bactrim/ (08/30/17 23:17) Vital Signs/I&O Vital Sign - Last 12Hours 08/30/17 08/30/17 21:58 23:20 Temp 97.4 97.4 Pulse 104 104 Resp 20 20 B/P (MAP) 107/92 (97) 107/92 (97) Pulse Ox 97 97 O2 Delivery Room Air Blood Pressure Mean: 97 Departure Communication (Admissions) Progress Notes 2311/2314--PAGED/SPOKE WITH DR. MADDOX, WILL START PT ON ANTBIOTICS PRECAUTION, AND WILL HAVE PT FOLLOW UP WITH DR. LYLES ON SATURDAY FOR FURTHER CARE Impression Impression: Primary Impression: Encounter for post surgical wound check Disposition: HOME, SELF-CARE Condition: Stable Departure-Patient Inst. Referrals: CARMEN GIBBS MD (PCP/Family) Primary Care Physician Patient Instructions: How to Prevent Surgical Site Infections, Laceration Repair With Glue (DC), Surgical Wound (DC), Wound Care (DC) Add. Discharge Instructions: FOLLOW ALL POST OP INSTRUCTIONS FOLLOW UP WITH DR. LYLES NEXT WEEK SCHEDULED OR SOONER IF WORSE All discharge instructions reviewed with patient and/or family. Voiced understanding. Scripts Sulfamethoxazole/Trimethoprim (Bactrim Ds Tablet) 1 Each Tablet 1 EACH PO BID, #20 TAB Prov: YAN CHAPARRO DO 08/30/17 YAN CHAPARRO DO Aug 30, 2017 23:19
[2017-08-30 23:20] VITALS: BP 107/92
== END 2017-08-30 23:27 | disposition home or self-care (01) ==
LOC: EDUNIT# 21:32 → ER 21:33
DX: K91.89 Other postprocedural complications and disorders of digestive system (principal); J45.909 Unspecified asthma, uncomplicated; G43.909 Migraine, unspecified, not intractable, without status migrainosus; G25.81 Restless legs syndrome; F41.9 Anxiety disorder, unspecified; F32.9 Major depressive disorder, single episode, unspecified; Z85.528 Personal history of other malignant neoplasm of kidney; Z87.19 Personal history of other diseases of the digestive system; Z88.0 Allergy status to penicillin; Z88.6 Allergy status to analgesic agent; Z87.891 Personal history of nicotine dependence; Z90.49 Acquired absence of other specified parts of digestive tract; Z90.89 Acquired absence of other organs; Z90.710 Acquired absence of both cervix and uterus; Z90.5 Acquired absence of kidney; Z87.2 Personal history of diseases of the skin and subcutaneous tissue
CPT/HCPCS: 99283

== ENCOUNTER 2017-09-02 21:07 | Inpatient (IN) | payer MEDICARE, MEDICAID ==
[~2017-09-02] VITALS: Ht 157.5 cm; Wt 118.3 kg
--- OUTSIDE RECORDS SUMMARY | 2017-09-02 21:14 | XMS REPORT | Continuity of Care Document ---
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 07/15/20132013 Active [facility] [place] SERIES [id number] [facility] 03/18/2017 03/18/2017 Active [facility] EXT RECOVERY [id number] [facility] 04/10/2017 04/11/2017 Active [facility] [place] SERIES [id number] [facility] 05/06/2017 05/06/2017 Active [facility] OUTPATIENT [id number] RAQUEL BARGER 06/03/20172016 Active [facility] SPECIMEN [id number] TYESHA OLYAEE 06/18/2017 06/18/2017 Active [facility] O 09/02/2017 Active [facility] OUTPATIENT [id number] RAQUEL BARGER 09/02/2017 Active [facility] Procedures Plan of Care Social History Assessment and Plan Family History Advance Directives Functional Status
--- OUTSIDE RECORDS SUMMARY | 2017-09-02 21:14 | XMS REPORT | Clinical Summary ---
Author Author [place] Organization [place] Address Unknown Phone Unavailable Care Team Providers Care Sql Database Administrator Name Role Phone Michael Sutton MD Unavailable [...] in the Health Information Management department at [phone] for further assistance in locating additional records.[place] Allergies Active Allergy Reactions Severity Noted Date [...] 17 tabletIndications: PAIN for Pain Indications: PAIN acetaminophen (TYLENOL) Take 1,000 mg by mouth Active 500 mg tablet every 6 hours as needed for Pain (patient does not take more than four per day). Max of 4,000 mg of acetaminophen in 24 hours. ferrous sulfate (IRON Take 1 tablet by [...] Indications: VITAMIN B12 VITAMIN B12 DEFICIENCY DEFICIENCY ondansetron (ZOFRAN ODT) Dissolve 1 tablet by 60 tablet 2 09/03/19 Active 8 mg rapid dissolve mouth twice daily. Place 18 tabletIndications: on tongue to disolve. Chronic nausea, Chronic vomiting ondansetron (ZOFRAN ODT) DISSOLVE ONE TABLET IN 60 tablet 0 05/07/20 09/03/19 Discontin 8 mg rapid dissolve MOUTH EVERY 8 HOURS 17 18 ued tablet NEEDED FOR NAUSEA. NEEDS GI OFFICE VISIT FOR ADDITIONAL REFILLS. electrolyte GUT PEG Split dose 4000 mL 0 06/03/20 09/03/19 Discontin (NULYTELY, COLYTE, 17 18 ued GAVILYTE-N) 420 gram oral solution Active Problems Problem Noted Date Left renal mass 04/10/2017 Renal mass 03/21/2017 Overview: Added automatically from request for surgery [id number] 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 06/24/2013 Overview: S/P FREDI LINO 11/27 Depression 06/24/2013 S/P cholecystectomy 06/24/2013 Overview: 2007 S/P appendectomy 06/24/2013 Overview: November 2012 Pancreatitis 10/23/2011 Encounters Date Type Specialty Care Team Description 09/02/2017 Hospital Lab Randy Nunez MD Arrived Encounter 09/02/2017 Office Visit Gastroenterology Jessica Valera ARNP B12 deficiency (Primary Dx); Chronic nausea; Epigastric pain; Chronic pancreatitis, unspecified pancreatitis type (HCC); Vitamin D deficiency; Iron deficiency; Chronic vomiting 08/14/2017 Orders Only Oncology Abel Poe MD [...] Telephone Gastroenterology Randy Nunez MD Results; Test from Last 3 Months Family History Medical [...] Vital Sign Reading Time Taken Blood Pressure 113/73 09/02/2017 9:32 AM CDT Pulse 78 09/02/2017 9:32 AM CDT Temperature 36.6 C (97.9 F) 09/02/2017 9:32 AM CDT Respiratory Rate 14 06/03/2017 10:10 AM PRODUCT HANDLER Oxygen Saturation 97% 05/06/2017 8:47 AM PRODUCT HANDLER Inhaled Oxygen - - Concentration Weight 118.4 kg (261 lb) 09/02/2017 9:32 AM CDT Height 160 cm (5' 3") 09/02/2017 9:32 AM CDT Body Mass Index 46.23 09/02/2017 9:32 AM CDT Plan of Treatment Date Type Specialty Care Team Description 05/06/2017 Procedure Pass Oncology 05/06/2017 Procedure Pass Oncology Health Maintenance Due Date Last Done Comments PHYSICAL (COMPREHENSIVE) 1991 EXAM PERTUSSIS VACCINE 1995 HIV SCREENING 1999 TETANUS VACCINE 2001 CERVICAL CANCER SCREENING 2014 INFLUENZA VACCINE 03/17/2018 Results * IRON + BINDING CAPACITY + %SAT+ FERRITIN (09/02/2017 10:40 AM) Component Value Ref Range Iron 55 50 - 160 MCG/DL Iron Binding-TIBC 495 (H) 270 - 380 MCG/DL % Saturation 11 (L) 28 - 42 % Ferritin 81 10 - 200 NG/ML Specimen Performing Laboratory [facility] [address] [place] [address] * CBC (09/02/2017 10:40 AM) Component Value Ref Range White Blood Cells 10.4 4.5 - 11.0 K/UL RBC 4.26 4.0 - 5.0 M/UL Hemoglobin 12.1 12.0 - 15.0 GM/DL Hematocrit 36.1 36 - 45 % MCV 84.9 80 - 100 FL MCH 28.5 26 - 34 PG MCHC 33.6 32.0 - 36.0 G/DL RDW 13.0 11 - 15 % Platelet Count 354 150 - 400 K/UL MPV 7.2 7 - 11 FL Specimen Performing Laboratory [facility] [address] [place] [address] * VITAMIN B12 (09/02/2017 10:40 AM) Component Value Ref Range Vitamin B12 495 180 - 914 PG/ML Specimen Performing Laboratory [facility] [address] [place] [address] * CT ABD/PEL EXTERNAL IMAGING (08/12/2017) Narrative This order has been auto finalized and does not contain a result. * SURGICAL PATHOLOGY (06/18/2017 2:27 PM) Component Value Ref Range PATHOLOGY REPORT [email or web address] Department of Pathology and Laboratory Medicine [address] [place] [id number] Surgical Pathology Office: [phone] SURGICAL PATHOLOGY REPORT NAME: JAYLYN DELGADO SURG PATH #: [id number] MR #: [id number] SPECIMEN CLASS: SR BILLING #: [id number] ALT ID #: LOCATION: [facility] DATE OF PROCEDURE: 06/18/2017 AGE: 32 SEX: [...] REPORT (06/18/2017) Specimen Performing Laboratory IN CLINIC from Last 3 Months
--- OUTSIDE RECORDS SUMMARY | 2017-09-02 21:14 | XMS REPORT | Encounter Summary ---
Author Author [facility] Organization [facility] Address Unknown Phone Unavailable Care Team Providers Care Railroad Engineer Name Role Phone Michael Sutton MD Unavailable Unavailable Mary Whittington MD PCP Jessica Valera Unavailable Maggie Puente Unavailable Unavailable Mary Telles APRN Unavailable Bam Ritter MD Unavailable Radha Bo REPRESENTATIVE PHLEBOTOMY SERVICES Unavailable Unavailable Jose Sanchez MD Unavailable Encounter Details Date Type Department Care Team Description 05/06/2017 Procedure Pass [facility] Exam [address] [place] [address] Social History Tobacco Use Types Packs/Day Years [...]
--- OUTSIDE RECORDS SUMMARY | 2017-09-02 21:15 | XMS REPORT | Encounter Summary ---
Author Author [facility] Organization [facility] Address Unknown Phone Unavailable Care Team Providers Care Dental Instrument Maker Name Role Phone Michael Sutton MD Unavailable Unavailable Mary Whittington MD PCP Jessica Valera Unavailable Maggie Puente Unavailable Unavailable Mary Telles APRN Unavailable Bam Ritter MD Unavailable Radha Bo LPN Unavailable Unavailable Jose Sanchez MD Unavailable Reason for Visit * Reason Comments Follow-up Phone Call Encounter Details Date Type Department Care Team Description 06/19/2017 Telephone [facility] Randy Nunez MD Follow- up Phone Call Physicians - Internal [facility] Medicine [place] [address] [place] [address] [place] [address] Social History Tobacco Use Types [...] Arleen Leone RN - 06/19/2017 2:51 PM ELECTRICAL MAINTENANCE MECHANIC Message back to patient regarding Dr. Nunez's response. * Telephone Encounter - Randy Nunez MD - 06/19/2017 1:00 PM ELECTRICAL MAINTENANCE MECHANIC Yes can be done locally, please have copy sent to us. Thanks * Telephone Encounter - Arleen Leone RN - 06/19/2017 9:26 AM ELECTRICAL MAINTENANCE MECHANIC Patient calling today to inform did have [...]
--- OUTSIDE RECORDS SUMMARY | 2017-09-02 21:15 | XMS REPORT | Encounter Summary ---
Author Author [facility] Organization [facility] Address Unknown Phone Unavailable Care Team Providers Care Human Services Case Manager Name Role Phone Michael Sutton MD Unavailable Unavailable Mary Whittington MD PCP Jessica Valera Unavailable Maggie Puente Unavailable Unavailable Mary Telles APRN Unavailable Bam Ritter MD Unavailable Radha Bo LPN Unavailable Unavailable Jose Sanchez MD Unavailable Reason for Visit * Reason Comments General Question Records Request Encounter Details Date Type Department Care Team Description 07/09/2017 Telephone [facility] Randy Nunez MD General Question; Records Physicians - Internal [address] [facility] Request Medicine [place] [address] [place] [address] [address] [facility] [phone] [place] [address] Social History Tobacco Use Types [...] Arleen Leone RN - 07/11/2017 11:17 AM LEAD CUSTOMER SERVICE REPRESENTATIVE Phoned patient. Confirms did get colonoscopy locally and was informed was normal. Request for records sent to [facility] to review with Dr. Nunez. Difficult conversation [...] Alexandria Domingo RN - 07/09/2017 3:05 PM LEAD CUSTOMER SERVICE REPRESENTATIVE Patient called and left a voice mail [...]
--- OUTSIDE RECORDS SUMMARY | 2017-09-02 21:15 | XMS REPORT | Encounter Summary ---
Author Author [facility] Organization [facility] Address Unknown Phone Unavailable Care Team Providers Care Forestry Fire Aide Name Role Phone Michael Sutton MD Unavailable Unavailable Mary Whittington MD PCP Jessica Valera Unavailable Maggie Puente Unavailable Unavailable Mary Telles APRN Unavailable Bam Ritter MD Unavailable Radha Bo LPN Unavailable Unavailable Jose Sanchez MD Unavailable Reason for Visit * Reason Comments Hernia Encounter Details Date Type Department Care Team Description 08/14/2017 Telephone [facility] Abel Poe MD [facility] Exam [address] [facility] [address] [place] [address] [place] [address] [phone] Social History Tobacco Use Types Packs/Day Years [...] Jenn Bhatt, RN - 08/14/2017 11:56 AM ANTENNA SPECIALIST Returned pt's phone messages regarding new report of lung nodule and abd hernia. She spent time in the ED this weekend @ [facility] in [place]. She reports these findings and their recommendation that she follow up with Dr. Poe. Awaiting confirmation of records and will advise pt on follow up. in this encounter Plan of Treatment Date Type Specialty Care Team Description 05/06/2017 Procedure Pass Oncology 05/06/2017 Procedure Pass Oncology as of this encounter Visit Diagnoses Not on filein this encounter
--- OUTSIDE RECORDS SUMMARY | 2017-09-02 21:15 | XMS REPORT | Encounter Summary ---
Author Author [facility] Organization [facility] Address Unknown Phone Unavailable Care Team Providers Care Painter Bottom Name Role Phone Michael Sutton MD Unavailable Unavailable Mary Whittington MD PCP Jessica Valera Unavailable Maggie Puente Unavailable Unavailable Mary Telles FACTORY HELPER Unavailable Bam Ritter MD Unavailable Radha Bo SUPERVISOR SUNGLASSES Unavailable Unavailable Jose Sanchez MD Unavailable Reason for Visit * Reason Comments Abdominal pain Constipation Blood in stools Nausea Anal Pain Vomiting Encounter Details Date Type Department Care Team Description 09/02/2017 Office Visit [facility] Jessica Valera ARNP B12 deficiency (Primary Physicians - Internal [address]); Medicine [place] [address] Chronic nausea; [address] [place] [address] Epigastric pain; [place] [address] Chronic pancreatitis, unspecified pancreatitis type (HCC); Vitamin D deficiency; Iron deficiency; Chronic vomiting Social History Tobacco Use Types Packs/Day Years [...] F) 09/02/2017 9:32 AM CDT Respiratory Rate - - Oxygen Saturation - - Inhaled Oxygen - - Concentration Weight 118.4 kg (261 lb) 09/02/2017 9:32 AM CDT Height 160 cm (5' 3") 09/02/2017 9:32 AM CDT Body Mass Index 46.23 09/02/2017 9:32 AM CDT in this encounter Functional Status [...] this encounter Instructions * Patient Instructions - Jessica Valera ARNP - 09/02/2017 10:30 AM CDT 1. For the nausea, take scheduled Zofran 8mg, take twice a day on a regular basis to see if more helpful for your nausea/vomiting symptoms. 2. Continue Miralax 2-3 times a day to help avoid constipation. 3. Have blood work today, we will call you with results. In the meantime, continue B12 injections every month. We will call you about if you need to restart iron or Vit D. 4. Start a gastroparesis diet - see the attached information. We will also see if this helps with your nausea and vomiting. 5. Plan to see Dr. Nunez in 3 months, call sooner if needed. Please call my nurse Radha if you have any questions or concerns. [phone]. in this encounter Progress Notes * Jessica Valera ARNP - 09/02/2017 10:30 AM CDT Formatting of this note may be different from the original. Date of Service: 09/02/2017 Subjective: Jaylyn Delgado is a 32 y.o. female. History of Present Illness Jaylyn is a very pleasant 32-year-old female who is an established patient of Dr. Nunez last seen on 06/03/17. She has a history of idiopathic chronic pancreatitis diagnosed with endoscopic ultrasound. She has seen Dr. Lindale in the past. She has undergone prior celiac plexus block. When she saw Dr. Nunez she reported daily nausea since her cholecystectomy in 2006. She would have intermittent episodes of vomiting of bilious material. No worsening of the nausea with eating. She also reported ongoing early satiety and poor appetite without weight loss. She also reported chronic epigastric pain which could radiate around to the back, was constant, and not worse with eating. She had undergone 2 prior trigger point injections with no benefit. She has been given an empiric trial of PPIs in the past as well as pancreatic enzymes without clear benefit. Dr. Nunez recommended trial of a gastroparesis diet, repeat EUS, surveillance colonoscopy, and lab work. Lab work on 06/03/17 revealed vitamin D1 85, iron 86, ferritin 60, albumin 3.8, normal LFTs and lipase, a.m. cortisol 10.2, TSH 1.708, vitamin D 19.3. EGD/EUS was performed on 06/18/17. EGD revealed normal-appearing esophagus, stomach, and duodenum. Biopsies were negative for H. pylori. EUS revealed fatty liver parenchyma with a normal biliary system. The pancreatic parenchyma demonstrated lobularity diffusely throughout the pancreas as well as calcification seen in the pancreas head. She is here today for a three-month follow-up office visit. She completed high- dose vitamin D as recommended. She was taking iron twice daily but ran out 1-2 weeks ago. She continues to report a poor appetite although she is gained 2 pounds since the 06/03/17 office visit. She also continues to have early satiety. She did not try the gastroparesis diet. She denies pyrosis. She takes hydrocodone only on occasion for left incisional pain. She feels her constipation is currently well controlled with MiraLAX twice daily. She has had issues with constipation since her left nephrectomy. She is having a bowel movement every day to every other day. No rectal bleeding or melena. She continues to have epigastric pain which is not dependent on eating and is present most of the time. She tries to avoid taking hydrocodone if able. She also continues to have chronic nausea and is taking 16 mg of Zofran at a time with minimal improvement. She has not tried taking scheduled Zofran. She has been prescribed Phenergan in the past although she has been unable to keep this down at times due to the vomiting. No hematemesis. No dysphagia, odynophagia, pyrosis. 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 [facility] [place] [place] for further recommendations. She also underwent incisional hernia repair with mesh from her previous left nephrectomy site by Dr. Daniel on 08/22/17. She has also had a colonoscopy since the last OV. This was performed by Dr. Daniel on 07/03/17 which showed grade II internal hemorrhoids and external hemorrhoids, no polyps seen. Past medical history: 1. Changes of chronic pancreatitis on past endoscopic ultrasound. Most recent EUS 06/18/17 confirmed chronic pancreatitis. 2. 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, status post total abdominal hysterectomy and oophorectomy in November 2012. 3. Status post cholecystectomy (2006). 4. History of depression. 5. Significant weight gain. 6. Left nephrectomy (renal cell cancer) 03/2017. 7. GET 07/15/13 normal. 8. MRI head 07/15/13 normal. 9. History of Family history: paternal great uncle pancreatic cancer; maternal grandfather "abdominal tumor"; mother with colon polyps; paternal great uncle colon cancer. Social history: no alcohol or tobacco use. Review of Systems Constitutional: Positive for activity change, diaphoresis and fatigue. Negative for appetite change, chills, fever and unexpected weight change. HENT: Positive for sneezing. Negative for mouth sores, sore throat, trouble swallowing and voice change. Eyes: Positive for itching. Negative for pain and visual disturbance. Respiratory: Positive for shortness of breath and wheezing. Negative for choking and chest tightness. Cardiovascular: Positive for leg swelling. Negative for chest pain. Gastrointestinal: Positive for blood in stool, constipation, nausea, rectal pain and vomiting. Negative for abdominal distention, abdominal pain, anal bleeding and diarrhea. Endocrine: Positive for polydipsia. Genitourinary: Positive for difficulty urinating. Negative for flank pain and pelvic pain. Musculoskeletal: Positive for back pain and neck stiffness. Negative for arthralgias. Skin: Negative for rash. Neurological: Positive for dizziness, weakness, light-headedness and headaches. Hematological: Positive for adenopathy. Psychiatric/Behavioral: Positive for behavioral problems and confusion. All other systems reviewed and are negative. Objective: acetaminophen (TYLENOL) 500 mg tablet Take 1,000 mg by mouth every 6 hours as needed for Pain (patient does not take more than four per day). Max of 4,000 mg of acetaminophen in 24 hours. cyanocobalamin (VITAMIN B-12) 1,000 mcg/mL injection Inject 1 mL into the muscle every 30 days. Indications: VITAMIN B12 DEFICIENCY diphenhydrAMINE (BENADRYL ALLERGY) 25 mg tablet Take 50 mg by mouth every 6 hours as needed. estradiol (ESTRACE) 2 mg tablet Take 3 mg by mouth at bedtime daily. ferrous sulfate (IRON (FERROUS SULFATE)) 325 mg (65 mg iron) tablet Take 1 tablet by mouth daily for 120 days. Take with 8 ounces of orange juice fluoxetine (PROZAC) 20 mg capsule Take 2 [...] by mouth twice daily. Indications: CONSTIPATION Vitals: 09/02/17 0932 BP: 113/73 Pulse: 78 Temp: 36.6 C (97.9 F) TempSrc: Oral Weight: 118.4 kg (261 lb) Height: 160 cm (63") Body mass index is 46.23 kg/m. Results for JAYLYN DELGADO ( ) as of 09/02/2017 09:39 Ref. Range 06/03/2017 11:28 Vitamin B12 Latest Ref Range: 180 - 914 PG/ML 185 Iron Latest Ref Range: 50 - 160 MCG/DL 86 % Saturation Latest Ref Range: 28 - 42 % 16 (L) Iron Binding-TIBC Latest Ref Range: 270 - 380 MCG/DL 548 (H) Ferritin Latest Ref Range: 10 - 200 NG/ML 60 Sodium Latest Ref Range: 137 - 147 MMOL/L 136 (L) Potassium Latest Ref Range: 3.5 - 5.1 MMOL/L 4.0 Chloride Latest Ref Range: 98 - 110 MMOL/L 104 CO2 Latest Ref Range: 21 - 30 MMOL/L 24 Anion Gap Latest Ref Range: 3 - 12 8 Blood Urea Nitrogen Latest Ref Range: 7 - 25 MG/DL 14 Creatinine Latest Ref Range: 0.4 - 1.00 MG/DL 0.95 eGFR Non Latest Ref Range: >60 mL/min >60 eGFR Latest Ref Range: >60 mL/min >60 Glucose Latest Ref Range: 70 - 100 MG/DL 87 Albumin Latest Ref Range: 3.5 - 5.0 G/DL 3.8 Calcium Latest Ref Range: 8.5 - 10.6 MG/DL 9.3 Total Bilirubin Latest Ref Range: 0.3 - 1.2 MG/DL 0.4 Total Protein Latest Ref Range: 6.0 - 8.0 G/DL 7.3 AST (SGOT) Latest Ref Range: 7 - 40 U/L 31 ALT (SGPT) Latest Ref Range: 7 - 56 U/L 17 Amylase Latest Ref Range: 24 - 100 U/L 39 Lipase Latest Ref Range: 11 - 82 U/L 26 Alk Phosphatase Latest Ref Range: 25 - 110 U/L 54 Cortisol-AM Latest Ref Range: 6.7 - 22.6 MCG/DL 10.2 TSH Latest Ref Range: 0.35 - 5.00 MCU/ML 1.708 Vitamin D(25-OH)Total Latest Ref Range: 30 - 80 NG/ML 19.3 (L) Physical Exam Constitutional: She is oriented to person, place, and time. She appears well- developed and well-nourished. No distress. HENT: Head: Normocephalic and atraumatic. Mouth/Throat: Oropharynx is clear and moist. Eyes: Conjunctivae are normal. Pupils are equal, round, and reactive to light. Right eye exhibits no discharge. Left eye exhibits no discharge. No scleral icterus. Neck: Normal range of motion. Neck supple. No thyromegaly present. Cardiovascular: Normal rate, regular rhythm, normal heart sounds and intact distal pulses. Pulmonary/Chest: Effort normal and breath sounds normal. No respiratory distress. She has no wheezes. Abdominal: Soft. Bowel sounds are normal. She exhibits no distension and no mass. There is tenderness. There is no rebound and no guarding. obese, healing incision noted to left lower side, wound edges intact, mild tenderness noted, no significant redness, no drainage noted. Musculoskeletal: Normal range of motion. She exhibits no edema. Lymphadenopathy: She has no cervical adenopathy. Neurological: She is alert and oriented to person, place, and time. Coordination normal. Skin: Skin is warm and dry. No rash noted. She is not diaphoretic. Psychiatric: She has a normal mood and affect. Her behavior is normal. Judgment and thought content normal. Vitals reviewed. Assessment and Plan: 1. Chronic nausea with intermittent vomiting, no weight loss. Currently taking Zofran but not on a scheduled basis. GET normal in past. Recent AM Cortisol normal. 2. Chronic pancreatitis based on endoscopic ultrasound 01/2015 and more recently 06/18/17. 3. Chronic epigastric pain, not meal related. Not improved with PPI, trigger point injections X 2, or pancreatic enzymes in the past. 4. History of intermittent constipation, currently well managed on Miralax bid. 5. History of adenomatous colon polyps. Most recent colonoscopy 07/03/[address] Daniel - no polyps found. 6. Nonalcoholic steatosis with prior history of elevated LFTs. Most recent LFTs normal. 05/2017. 7. Status post left radical nephrectomy for renal cell cancer in March 2017. 8. Family history colon polyps and colon cancer. 9. Left lung mass, recently dx per patient. Plan: 1. For the nausea, take scheduled Zofran 8mg, take twice a day on a regular basis instead of prn to see if more helpful for nausea/vomiting symptoms. Can consider adding scopolamine patch. 2. Continue Miralax 2-3 times a day to help avoid constipation. 3. Lab today - will recheck B12, Vit d, and iron studies. In the meantime, continue B12 injections every month. 4. Trial of a gastroparesis diet to see if helpful for epigastric pain, N/V. 5. Plan to see Dr. Nunez in 3 months, call sooner if needed. 6. Let us know outcome of [facility] [place] [place]. Patient was advised of the plan and voiced agreement and understanding. Total face to face time spent with patient: 40 minutes with >50% of that time spent counseling the patient on medications, prior study results related to symptoms, differential diagnosis, and options regarding the plan of care. Thank you for allowing me to see your patient in the office today. Please feel free to contact me if you have any questions or concerns. in this encounter Plan of Treatment Date Type Specialty Care Team Description 05/06/2017 Procedure Pass Oncology 05/06/2017 Procedure Pass Oncology Name Priority Associated Diagnoses Date/Time 25-OH VITAMIN D (D2 + D3) Routine Vitamin D deficiency 09/02/2017 10:40 AM CDT Name Priority Associated Diagnoses Order Schedule 25-OH VITAMIN D (D2 + D3) Routine Vitamin D deficiency Expected: 2017, Expires: 09/02/2018 as of this encounter Results * VITAMIN B12 (09/02/2017 10:40 AM) Component Value Ref Range Vitamin B12 495 180 - 914 PG/ML Specimen Performing Laboratory Blood MAIN LAB [address] [place] [address] * CBC (09/02/2017 10:40 AM) Component Value [...] Specimen Performing Laboratory Blood MAIN LAB [address] [place] [address] * IRON + BINDING CAPACITY + %SAT+ FERRITIN (09/02/2017 10:40 AM) Component Value Ref Range Iron 55 50 - 160 MCG/DL Iron Binding-TIBC 495 (H) 270 - 380 MCG/DL % Saturation 11 (L) 28 - 42 % Ferritin 81 10 - 200 NG/ML Specimen Performing Laboratory Blood MAIN LAB [address] [place] [address] in this encounter Visit Diagnoses Diagnosis B12 deficiency - Primary Other B-complex deficiencies Chronic nausea Nausea alone Epigastric pain Abdominal pain, epigastric Chronic pancreatitis, unspecified pancreatitis type (HCC) Vitamin D deficiency Unspecified vitamin D deficiency Iron deficiency Iron deficiency anemia, unspecified Chronic vomiting Vomiting alone
--- OUTSIDE RECORDS SUMMARY | 2017-09-02 21:15 | XMS REPORT | Encounter Summary ---
Author Author [facility] Organization [facility] Address Unknown Phone Unavailable Care Team Providers Care Damage Prevention Coordinator Name Role Phone Michael Sutton MD Unavailable Unavailable Mary Whittington MD PCP Jessica Valera Unavailable Maggie Puente Unavailable Unavailable Mary Telles APRN Unavailable Bam Ritter MD Unavailable Radha Bo LPN Unavailable Unavailable Jose Sanchez MD Unavailable Reason for Visit * Reason Comments Pain Encounter Details Date Type Department Care Team Description 06/20/2017 Telephone [facility] Abel Poe MD [facility] Exam [address] [facility] [address] [place] [address] [place] [address] [phone] Social History Tobacco Use Types Packs/Day Years [...] Maddi Cannon, RN - 06/20/2017 9:47 AM FISHER CRAB Pt called stating she has been sick since having he GI scope and now is experiencing pain in abdomen on right side which is opposite side of renal surgery. Pt notes her urine is dark but denies fever. Pt admits to increase stress in her life and has to go to court today for which Dr Gooden is speaking with data warehousing specialist. Instructed pt she needs to either go [...]
--- OUTSIDE RECORDS SUMMARY | 2017-09-02 21:15 | XMS REPORT | Encounter Summary ---
Author Author [facility] Organization [facility] Address Unknown Phone Unavailable Care Team Providers Care Blueprint Reader Name Role Phone Michael Sutton MD Unavailable Unavailable Mary Whittington MD PCP Jessica Valera Unavailable Maggie Puente Unavailable Unavailable Mary Telles APRN Unavailable Bam Ritter MD Unavailable Radha Bo BRAND DEVELOPMENT MANAGER Unavailable Unavailable Jose Sanchez MD Unavailable Encounter Details Date Type Department Care Team Description 05/06/2017 Procedure Pass [facility] Exam [address] [place] [address] Social History Tobacco Use Types Packs/Day Years [...]
--- OUTSIDE RECORDS SUMMARY | 2017-09-02 21:15 | XMS REPORT | Encounter Summary ---
Author Author [facility] Organization [facility] Address Unknown Phone Unavailable Care Team Providers Care Beam Department Supervisor Name Role Phone Michael Sutton MD Unavailable Unavailable Mary Whittington MD PCP Jessica Valera Unavailable Maggie Puente Unavailable Unavailable Mary Telles APRN Unavailable Bam Ritter MD Unavailable Radha Bo LPN Unavailable Unavailable Jose Sanchez MD Unavailable Reason for Visit * Reason Comments Fall Encounter Details Date Type Department Care Team Description 08/08/2017 Telephone [facility] Abel Poe MD [facility] Exam [address] [facility] [address] [place] [address] [place] [address] [phone] Social History Tobacco Use Types Packs/Day Years [...] Jenn Bhatt, RN - 08/08/2017 10:19 AM FRONT SERVICES AGENT Pt left message that she had a recent fall and was experiencing pain on the side of her kidney surgery done in [place]. Returned her call and left her a message informing her that since she is in [place], [place] she needs to be evaluated closer [...]
--- OUTSIDE RECORDS SUMMARY | 2017-09-02 21:15 | XMS REPORT | Encounter Summary ---
Author Author [facility] Organization [facility] Address Unknown Phone Unavailable Care Team Providers Care Pension Consultant Name Role Phone Michael Sutton MD Unavailable Unavailable Mary Whittington MD PCP Jessica Valera Unavailable Maggie Puente Unavailable Unavailable Mary Telles APRN Unavailable Bam Ritter MD Unavailable Radha Bo LPN Unavailable Unavailable Jose Sanchez MD Unavailable Encounter Details Date Type Department Care Team Description 06/19/2017 Orders Only [facility] Jose Sanchez MD Physicians - Internal [address] [facility] Medicine [address] [place] [address] [address] [facility] MED [phone] [place] [address] Social History Tobacco Use Types [...]
--- OUTSIDE RECORDS SUMMARY | 2017-09-02 21:15 | XMS REPORT | Encounter Summary ---
Author Author [facility] Organization [facility] Address Unknown Phone Unavailable Care Team Providers Care Construction Flagger Name Role Phone Michael Sutton MD Unavailable Unavailable Mary Whittington MD PCP Jessica Valera Unavailable Maggie Puente Unavailable Unavailable Mary Telles APRN Unavailable Bam Ritter MD Unavailable Radha Bo LPN Unavailable Unavailable Jose Sanchez MD Unavailable Encounter Details Date Type Department Care Team Description 08/12/2017 Hospital [facility] [address] [facility] 2ND [place] [address] Social History Tobacco Use Types [...] mg twice daily. Indications: tabletIndications: CONSTIPATION constipation electrolyte GUT PEG Split dose 4000 mL 0 06/03/2017 09/02/2017 (NULYTELY, COLYTE, GAVILYTE-N) 420 gram oral solution ondansetron (ZOFRAN ODT) DISSOLVE ONE TABLET IN 60 tablet 0 201609/02/2017 8 mg rapid dissolve MOUTH EVERY 8 HOURS tablet NEEDED FOR NAUSEA. NEEDS GI OFFICE VISIT FOR ADDITIONAL REFILLS. as of this encounter Plan of Treatment [...]
--- OUTSIDE RECORDS SUMMARY | 2017-09-02 21:15 | XMS REPORT | Encounter Summary ---
Author Author [facility] Organization [facility] Address Unknown Phone Unavailable Care Team Providers Care Help Desk Team Leader Name Role Phone Michael Sutton MD Unavailable Unavailable Mary Whittington MD PCP Jessica Valera Unavailable Maggie Puente Unavailable Unavailable Mary Telles AUTOMOTIVE REFINISHER Unavailable Bam Ritter MD Unavailable Radha oB DRAFTER CASTINGS Unavailable Unavailable Jose Sanchez MD Unavailable Reason for Referral * Consult, Test & Treat Status Reason Specialty Diagnoses / Referred By Referred To Procedures Contact Contact Closed Specialty General Surgery Diagnoses Abel Poe MD Freund, William L, Services Renal cell [address] Required cancer, left Blvd [address] (HCC) [address] [place] [address] Phone: Fax: Encounter Details Date Type Department Care Team Description 08/14/2017 Orders Only [facility] Abel Poe MD Renal cell cancer, left [facility] Exam [address] (HCC) (Primary Dx) [address] [place] [address] [place] [address] [phone] Social History Tobacco Use Types Packs/Day Years [...]
--- OUTSIDE RECORDS SUMMARY | 2017-09-02 21:15 | XMS REPORT | Encounter Summary ---
Author Author [facility] Organization [facility] Address Unknown Phone Unavailable Care Team Providers Care Wagon Driller Name Role Phone Michael Sutton MD Unavailable Unavailable Mary Whittington MD PCP Jessica Valera Unavailable Maggie Puente Unavailable Unavailable Mary Telles APRN Unavailable Bam Ritter MD Unavailable Radha Bo LPN Unavailable Unavailable Jose Sanchez MD Unavailable Encounter Details Date Type Department Care Team Description 09/02/2017 Hospital [facility] Randy Nunez MD Arrived Encounter [address] [place] [address] [address] [place] [address] [phone] Social History Tobacco Use Types Packs/Day Years [...] (D2 + D3) Routine Vitamin D deficiency ONE TIME for 1 Occurrences starting 09/02/2017 until 09/02/2017 as of this encounter Results * VITAMIN B12 (09/02/2017 10:40 AM) Component Value Ref Range Vitamin B12 495 180 - 914 PG/ML Specimen Performing Laboratory [facility] [address] [place] [address] * CBC (09/02/2017 10:40 AM) Component Value [...] Performing Laboratory [facility] [address] [place] [address] * IRON + BINDING CAPACITY + %SAT+ FERRITIN (09/02/2017 10:40 AM) Component Value Ref Range Iron 55 50 - 160 MCG/DL Iron Binding-TIBC 495 (H) 270 - 380 MCG/DL % Saturation 11 (L) 28 - 42 % Ferritin 81 10 - 200 NG/ML Specimen Performing Laboratory [facility] [address] [place] [address] in this encounter Visit Diagnoses Diagnosis Iron deficiency Iron deficiency anemia, unspecified Vitamin D deficiency Unspecified vitamin D deficiency Chronic nausea Nausea alone Chronic vomiting Vomiting alone B12 deficiency Other B-complex deficiencies Low vitamin D level Medication monitoring encounter Encounter for therapeutic drug monitoring
--- OUTSIDE RECORDS SUMMARY | 2017-09-02 21:15 | XMS REPORT | Encounter Summary ---
Author Author [facility] Organization [facility] Address Unknown Phone Unavailable Care Team Providers Care Bag Machine Helper Name Role Phone Michael Sutton MD Unavailable Unavailable Mary Whittington MD PCP Jessica Valera Unavailable Maggie Puente Unavailable Unavailable Mary Telles APRN Unavailable Bam Ritter MD Unavailable Radha Bo LPN Unavailable Unavailable Jose Sanchez MD Unavailable Encounter Details Date Type Department Care Team Description 08/13/2017 Ancillary Rad Outpatient, Radiologist Diagnosis unknown Orders [address] [place] [address] Social History Tobacco Use Types [...]
--- OUTSIDE RECORDS SUMMARY | 2017-09-02 21:15 | XMS REPORT | Encounter Summary ---
Author Author [facility] Organization [facility] Address Unknown Phone Unavailable Care Team Providers Care Research Test Engine Evaluator Name Role Phone Michael Sutton MD Unavailable Unavailable Mary Whittington MD PCP Jessica Valera Unavailable Maggie Puente Unavailable Unavailable Mary Telles APRN Unavailable Bam Ritter MD Unavailable Radha Bo LPN Unavailable Unavailable Jose Sanchez MD Unavailable Reason for Visit * Reason Comments Medication Refill Encounter Details Date Type Department Care Team Description 08/08/2017 Refill [facility] Randy Nunez MD Medication monitoring Physicians - Internal [address] [place] [address] encounter Medicine [place] [address] [place] [address] [place] [address] Social History Tobacco Use Types [...]
--- OUTSIDE RECORDS SUMMARY | 2017-09-02 21:16 | XMS REPORT | Encounter Summary ---
Author Author [facility] Organization [facility] Address Unknown Phone Unavailable Care Team Providers Care Seater Assembler Name Role Phone Michael Sutton MD Unavailable Unavailable Mary Whittington MD PCP Jesisca Valera Unavailable Maggie Puente Unavailable Unavailable Mary Telles APRN Unavailable Bam Ritter MD Unavailable Radha Bo LPN Unavailable Unavailable Tyesha Sanchez MD Unavailable Encounter Details Date Type Department Care Team Description 06/18/2017 Hospital [facility] Tyesha Sanchez MD Other chronic Encounter [address] pancreatitis (HCC) [place] [address] [address] [place] [address] [phone] Social History Tobacco Use Types Packs/Day Years [...] DEFICIENCY (HIGH DOSE (HIGH DOSE THERAPY) THERAPY) electrolyte GUT PEG Split dose 4000 mL [...] Component Value Ref Range PATHOLOGY REPORT [facility] [email or web address] Department of Pathology and Laboratory Medicine [address] [place] [address] Surgical Pathology Office: [phone] SURGICAL PATHOLOGY REPORT NAME: JAYLYN DELGADO SURG PATH #: [id number] MR #: [id number] SPECIMEN CLASS: SR BILLING #: [id number] ALT ID #: LOCATION: [facility] DATE OF PROCEDURE: 06/18/2017 AGE: 32 [...]
--- OUTSIDE RECORDS SUMMARY | 2017-09-02 21:16 | XMS REPORT | Encounter Summary ---
Author Author [facility] Organization [facility] Address Unknown Phone Unavailable Care Team Providers Care Center Manager Name Role Phone Michael Sutton MD Unavailable Unavailable Mary Whittington MD PCP Jessica Valera Unavailable Maggie Puente Unavailable Unavailable Mary Telles APRN Unavailable Bam Ritter MD Unavailable Radha Bo LPN Unavailable Unavailable Jose Sanchez MD Unavailable Reason for Visit * Reason Comments Appointment Request Upper EUS/Colonoscopy Encounter Details Date Type Department Care Team Description 06/06/2017 Telephone [facility] Maggie Puente Appointment Request Physicians - Internal (Upper EUS/Colonoscopy) Medicine 2ND FLOOR [address]OD [address] [facility] [place] [address] Social History Tobacco Use Types [...] - Maggie Puente - 06/07/2017 8:32 AM PREFINISH OPERATOR Scheduled Upper EUS/Colonoscopy at [facility] with Dr Sanchez on 06/18/17. Verbal instructions given over the phone, packet e-mailed to [email or web address]. Advised patient to contact the prescribing provider for any blood thinning medication and/or aspirin recommendations 1 week prior to having procedure. Patient verbalized understanding. * Telephone Encounter - Maggie Puente - 06/07/2017 8:28 AM PREFINISH OPERATOR Left generic message for patient to return call to schedule Upper EUS/ Colonoscopy. * Telephone Encounter - Maggie Puente - 06/06/2017 2:36 PM PREFINISH OPERATOR Left generic message for patient to return call to schedule Upper EUS/ Colonoscopy. in this encounter Plan of Treatment Date Type Specialty Care Team Description 05/06/2017 Procedure Pass Oncology 05/06/2017 Procedure Pass Oncology as of this encounter Visit Diagnoses Not on filein this encounter
--- OUTSIDE RECORDS SUMMARY | 2017-09-02 21:16 | XMS REPORT | Encounter Summary ---
Author Author [facility] Organization [facility] Address Unknown Phone Unavailable Care Team Providers Care Talent Acquisition Partner Name Role Phone Michael Sutton MD Unavailable Unavailable Mary Whittington MD PCP Jessica Valera Unavailable Maggie Puente Unavailable Unavailable Mary Telles APRN Unavailable Bam Ritter MD Unavailable Radha Bo LPN Unavailable Unavailable Jose Sanchez MD Unavailable Reason for Visit * Reason Comments Results Test Encounter Details Date Type Department Care Team Description 06/06/2017 Telephone [facility] Randy Nunez MD Results ; Test Physicians - Internal [address] [facility] Medicine [address] [place] [address] [place] [address] Social History Tobacco Use Types [...] Arleen Leone RN - 06/06/2017 8:47 AM CABLE PLACER Patient aware of lab results along with Dr. Nunez's recommendations. Results sent to Dr. Whittington's office and patient will get with their office regarding administration of her new Vitamin B12 monthly injections. All new prescriptions have been e-scribed to patient's pharmacy. Patient aware may have to purchase Iron over the counter. * Telephone Encounter - Arleen Leone RN - 06/06/2017 8:34 AM CABLE PLACER ----- Message from Randy Nunez MD sent at 06/05/2017 10:11 AM CABLE PLACER ----- Laboratory evaluation is consistent with iron [...] Oncology Name Priority Associated Diagnoses Order Schedule IRON + BINDING CAPACITY + %SAT+ FERRITIN Routine Other iron deficiency Expected: 10/07/2017 anemia (Approximate), Expires: Medication monitoring 06/06/2018 encounter as of this encounter Visit Diagnoses Diagnosis Other iron deficiency anemia - Primary Low vitamin D level Medication monitoring encounter Encounter for therapeutic drug monitoring
[2017-09-02] MEDS ORDERED: NS IV 1000 ML 1,000 ML IV ONE (21:27)
[2017-09-02] MEDS ORDERED: KETOROLAC 30 MG/ML VIAL IVP STA (21:27)
[2017-09-02] MEDS ORDERED: FAMOTIDINE 20MG/2ML IV (PEPCID) IV STA (21:27)
[2017-09-02] MEDS ORDERED: ONDANSETRON 4 MG/2 ML (SDV) Z0FRAN IVP ONE ×2 (21:30→23:15)
[2017-09-02 21:38] LABS: BILIRUBIN,URINE NEGATIVE (NEGATIVE); CLARITY,URINE CLEAR; COLOR,URINE YELLOW; GLUCOSE, URINE (UA) NEGATIVE (NEGATIVE); KETONES,URINE NEGATIVE (NEGATIVE); LEUKOCYTE ESTERASE ,URINE NEGATIVE (NEGATIVE); NITRITE,URINE NEGATIVE (NEGATIVE); PH,URINE 6 (5-9); PROTEIN,URINE 1+ (NEGATIVE); UROBILINOGEN,URINE NORMAL (NORMAL)
--- NOTE | 2017-09-02 21:41 | ED Abdominal Pain ---
General Chief Complaint: Abdominal/GI Problems Stated Complaint: POST OP PAIN/INCISION ISSUES Source of Information: Patient, Old Records History of Present Illness Date Seen by Provider: Sep 02, 2017 Time Seen by Provider: 21:17 Initial Comments PT ARRIVES VIA POV FROM HOME--WANTS WHEELCHAIR ON ARRIVAL C/O SEVERE LEFT SIDED ABDOMINAL PAIN PT HAD LEFT MID ABDOMEN INCISIONAL HERNIA REPAIR BY DR. LYLES ON 08/22/17 HAS HAD ONGOING INCISIONAL PAIN AND POST OP PAIN PT WAS SEEN HERE ON 08/30/17 FOR INCISION ISSUE AND WAS GIVEN RX FOR BACTRIM. STATES SHE IS TAKING IT. PT STATES SHE WAS IN [place] ALL DAY TODAY--HAD ROUTINE APPOINTMENT AT WITH "PANCREAS DR"--NO CHANGE IN TREATMENT, LAB DONE, BUT NO TEST RESULTS STATES SHE HAD "JUST A LITTLE THROBBING" IN AREA OF SURGERY ALL DAY TODAY STATES SHE GOT HOME AROUND 1500 AND LAID DOWN AND TOOK A NAP TONIGHT, SHE HAS HAD SEVERE PAIN IN LEFT ABDOMEN AND INCISION POPPED OPEN-- STATES "MY INSIDES FEEL LIKE THEY'RE BEING RIPPED APART"--PAIN GOES FROM INCISION TO UMBILICUS AREA AND AROUND TO LEFT BACK/FLANK AREA--STATES IT FEELS LIKE SOMETHING IS BEING PULLED APART INSIDE PT TOOK 1 TYLENOL AT 1730 TONIGHT, HAS NOT TAKEN ANYTHING ELSE FOR PAIN TODAY PT TAKES ZOFRAN EVERY 8 HOURS--LAST DOSE AT 1500 TODAY NO FEVER STATES SHE BEGAN HAVING NAUSEA AND VOMITING ON ARRIVAL TO ER--DRY HEAVES HAS ONGOING CONSTIPATION--TAKING MIRALAX WITH APPLEJUICE BID, HAD NORMAL BM YESTERDAY, NONE TODAY STATES SHE HASN'T EATEN TODAY DUE TO NO APPETITE HAS BEEN DRINKING APPLEJUICE WITH MIRALAX EVERY DAY, ALONG WITH LEMONADE AND WATER AND SPRITE STATES SHE IS NOT MAKING MUCH URINE TODAY, BUT NO PAIN OR DIFFICULTY ON URINATION. PT HAS NOT ATTEMPTED TO CONTACT DR. LYLES ( AND HE IS SURGEON PUBLIC HEALTH INFORMATICIAN [facility] ) FOR ANY OF THESE PROBLEMS--HAS SCHEDULED POST OP APPOINTMENT WITH DR. LYLES ON Saturday09/06/17 PT WITH MULTITUDE OF VISITS, VARIOUS COMPLAINTS--6 VISITS IN 2018 SURGEON: DR. LYLES PCP: DR. GIBBS AT [facility] Allergies and Home Medications Allergies Coded Allergies: meperidine (Verified Allergy, Unknown, 08/20/17) penicillin G (Verified Allergy, Unknown, 08/20/17) Home Medications Acetaminophen 500 Mg Tablet, 500-1,000 MG PO Q6H PRN for PAIN-MODERATE, ( Reported) Bisacodyl 5 Mg Tablet, 5-10 MG PO DAILY PRN for CONSTIPATION-4TH LINE, (Reported ) Cyanocobalamin 1,000 Mcg/Ml Inj, 1,000 MCG IJ MONTHLY, (Reported) Diphenhydramine HCl 25 Mg Capsule, 25 MG PO Q6H PRN for ALLERGIES, (Reported) Estradiol 2 Mg Tablet, 2 MG PO HS, (Reported) Fluoxetine HCl 40 Mg Capsule, 40 MG PO HS, (Reported) Hydrocodone/Acetaminophen 1 Each Tablet, 1-2 TAB PO Q4H PRN for PAIN-MODERATE, ( Reported) Ondansetron 8 Mg Tab.rapdis, 8 MG PO BID, (Reported) Polyethylene Glycol 3350 255 Gm Powder, 17 GM PO BID PRN for CONSTIPATION-2ND LINE, (Reported) Ropinirole HCl 4 Mg Tablet, 4 MG PO HS, (Reported) Sulfamethoxazole/Trimethoprim 1 Each Tablet, 1 TAB PO BID, (Reported) 10 DAY THERAPY FILLED 08-31-17 Patient Home Medication List Home Medication List Reviewed: Yes Review of Systems Constitutional: no symptoms reported Respiratory: No Symptoms Reported Cardiovascular: No Symptoms Reported Gastrointestinal: See HPI, Abdominal Pain, Nausea, Poor Appetite, Vomiting Genitourinary: See HPI Musculoskeletal: see HPI, back pain Skin: see HPI Psychiatric/Neurological: Anxiety Endocrine: No Symptoms Reported Past Kfkctcm-Ancyde-Wyhgsr Hx Patient Social History Alcohol Use: Denies Use Recreational Drug Use: No Smoking Status: Former Smoker Type Used: Cigarettes 2nd Hand Smoke Exposure: No Recent Foreign Travel: No Contact w/Someone Who Travel: No Recent Hopitalizations: No Immunizations Up To Date Tetanus Booster (TDap): Unknown PED Vaccines UTD: No Date of Pneumonia Vaccine: May 17, 2012 Date of Influenza Vaccine: Jul 03, 2012 Seasonal Allergies Seasonal Allergies: Yes (MILD) Surgeries History of Surgeries: Yes (RIGHT KNEE SCOPE X 5; LEFT KNEE SCOPE X 2; NASAL FX/ REPAIR; EGD/COLONOSCOPY; COCCYX REPAIR/REMOVAL; LEFT NEPHRECTOMY; LEFT INCISIONAL HERNIA REPAIR 08/22/17) Surgeries: Abdominal, Adenoidectomy, Appendectomy, Gallbladder, 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, Nephrectomy, Orthopedic, Tonsillectomy Respiratory History of Respiratory Disorde: Yes (HASNT USED INHALER IN > 4 YRS) Respiratory Disorders: Asthma Currently Using CPAP: No Currently Using BIPAP: No Cardiovascular History of Cardiac Disorders: No Neurological History of Neurological Disord: Yes (RESTLESS LEG SYNDROME) Neurological Disorders: Headaches /Migraines 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 System Hx 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: No Sexually Transmitted Disease: No HIV/AIDS: No 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 SUPERVISOR UNLOADING History: 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 Genitourinary History of Genitourinary Disor: Yes (L KIDNEY REMOVED FOR TUMOR;) Genitourinary Disorders: UTI-Chronic Gastrointestinal History of Gastrointestinal Di: Yes (ENLARGED LIVER/FATTY LIVER) Gastrointestinal Disorders: Liver Disease/Jaundice, Chronic Constipation, Pancreatitis, Polyps Musculoskeletal History of Musculoskeletal Dis: Yes (COCCYX-REPAIRED, MAY HAVE SIGNS OF ARTHRITIS) Musculoskeletal Disorders: Chronic Back Pain Endocrine History of Endocrine Disorders: Yes (CHRONIC PANCREATITIS) HEENT History of HEENT Disorders: No Loss of Vision: Denies Hearing Impairment: Denies Cancer History of Cancer: Yes Cancer: Kidney Did You Recieve Any Treatments: Yes (LEFT NEPHRECTOMY--IS NOT FOLLOWED BY ONCOLOGY) Type of Tx Receive: Surgical Intervention Psychosocial History of Psychiatric Problem: Yes Behavioral Health Disorders: Anxiety, Depression Integumentary History of Skin or Integumenta: No Skin/Integumentary Disorders: Herpes Blood Transfusions History of Blood Disorders: No Adverse Reaction to a Blood Tr: No (N/A) Family Medical History Significant Family History: Cancer, Diabetes, Hypertension Family Medial History: Cardiovascular disease 19 FATHER Completed stroke 19 FATHER Diabetes mellitus 19 FATHER Hypercholesterolemia 19 FATHER 19 MOTHER Hypertension 19 FATHER 19 MOTHER Neoplasm 19 MOTHER Psychosocial problem 19 FATHER 19 MOTHER Physical Exam Vital Signs VS - Last 72 Hours, by Label 09/02/17 09/02/17 09/02/17 21:17 21:47 23:50 Temp 97.8 97.8 97.3 Pulse 104 76 Resp 20 20 B/P (MAP) 179/119 (139) 123/69 (87) Pulse Ox 97 99 O2 Delivery Room Air Room Air Capillary Refill : General Appearance: obese, other (VERY DRAMATIC, CRYING, HOLDING LEFT ABDOMEN, WANTS WHEELCHAIR ON ARRIVAL) Respiratory: normal breath sounds, no respiratory distress, no accessory muscle use Cardiovascular: regular rate, rhythm, no murmur Gastrointestinal: normal bowel sounds, soft, tenderness (TENDERNESS TO ENTIRE LEFT ABDOMEN), other (INCISION TO LEFT MID ABDOMEN WITH 1 CM AREA OF VERY SUPERFICIAL DEHISCENCE WITH SCANT AMOUNT OF SEROUS DRAINAGE AND FEW SCANT SPOTS OF BLOOD ON GAUZE. MILD LOCAL MACULOPAPULAR RASH IN AREA OF TAPE DISTRIBUTION. WOUND ADHESIVE BEGINNING TO PEEL OFF. DOES APPEAR TO HAVE SOME GENERALIZED FULLNESS TO LEFT MID ABDOMEN AROUND INCISION,BUT NO DISCRETE MASS. ) Extremities: normal inspection, no pedal edema, normal capillary refill Back: CVA tenderness (L) Neurologic/Psychiatric: paradi tender II-XII nml as tested, no motor/sensory deficits, alert, oriented x 3 Skin: normal color, warm/dry, other ( ABOVE) Progress/Results/Core Measures Results/Orders Lab Results Laboratory Tests Test 09/02/17 21:31 09/02/17 21:45 Range/Units Urine Color YELLOW Urine Clarity CLEAR Urine pH 6 5-9 Urine Specific [place] 1.020 1.016-1.022 Urine Protein 1+ H NEGATIVE Urine Glucose (UA) NEGATIVE NEGATIVE Urine Ketones NEGATIVE NEGATIVE Urine Nitrite NEGATIVE NEGATIVE Urine Bilirubin NEGATIVE NEGATIVE Urine Urobilinogen NORMAL NORMAL MG/DL Urine Leukocyte Esterase NEGATIVE NEGATIVE Urine RBC (Auto) NEGATIVE NEGATIVE Urine RBC NONE /HPF Urine WBC RARE /HPF Urine Squamous Epithelial Cells 2-5 /HPF Urine Crystals NONE /LPF Urine Bacteria TRACE /HPF Urine Casts NONE /LPF Urine Mucus SMALL H /LPF Urine Culture Indicated NO White Blood Count 11.7 H 4.3-11.0 10^3/uL Red Blood Count 4.38 4.35-5.85 10^6/uL Hemoglobin 12.5 11.5-16.0 G/DL Hematocrit 37 35-52 % Mean Corpuscular Volume 85 80-99 FL Mean Corpuscular Hemoglobin 29 25-34 PG Mean Corpuscular Hemoglobin Concent 33 32-36 G/DL Red Cell Distribution Width 13.0 10.0-14.5 % Platelet Count 367 130-400 10^3/uL Mean Platelet Volume 9.0 7.4-10.4 FL Neutrophils (%) (Auto) 63 42-75 % Lymphocytes (%) (Auto) 27 12-44 % Monocytes (%) (Auto) 4 0-12 % Eosinophils (%) (Auto) 5 0-10 % Basophils (%) (Auto) 1 0-10 % Neutrophils # (Auto) 7.4 1.8-7.8 X 10^3 Lymphocytes # (Auto) 3.2 1.0-4.0 X 10^3 Monocytes # (Auto) 0.5 0.0-1.0 X 10^3 Eosinophils # (Auto) 0.6 H 0.0-0.3 10^3/uL Basophils # (Auto) 0.1 0.0-0.1 10^3/uL Sodium Level 144 135-145 MMOL/L Potassium Level 4.0 3.6-5.0 MMOL/L Chloride Level 108 H 98-107 MMOL/L Carbon Dioxide Level 27 21-32 MMOL/L Anion Gap 9 5-14 MMOL/L Blood Urea Nitrogen 13 7-18 MG/DL Creatinine 0.98 0.60-1.30 MG/DL Estimat Glomerular Filtration Rate > 60 BUN/Creatinine Ratio 13 Glucose Level 118 H 70-105 MG/DL Calcium Level 9.6 8.5-10.1 MG/DL Total Bilirubin 0.2 0.1-1.0 MG/DL Aspartate Amino Transf (AST/SGOT) 26 5-34 U/L Alanine Aminotransferase (ALT/SGPT) 24 0-55 U/L Alkaline Phosphatase 72 40-136 U/L Total Protein 7.6 6.4-8.2 GM/DL Albumin 4.0 3.2-4.5 GM/DL Amylase Level 53 25-125 U/L Lipase 39 8-78 U/L My Orders Orders - YAN CHAPARRO DO Saline Lock/Iv-Start (09/02/17 21:27) Amylase (09/02/17 21:27) Cbc With Automated Diff (09/02/17 21:27) Comprehensive Metabolic Panel (09/02/17 21:27) Lipase (09/02/17 21:27) Ua Culture If Indicated (09/02/17 21:27) Saline Lock/Iv-Start (09/02/17 21:27) Ns Iv 1000 Ml (Sodium Chloride 0.9%) (09/02/17 21:27) Ondansetron Injection (Zofran Injectio (09/02/17 21:30) Famotidine Injection (Pepcid Injection) (09/02/17 21:27) Ketorolac Injection (Toradol Injection) (09/02/17 21:27) Ct Abd/Pelvis Wo(Kidney Stone) (09/02/17 22:05) Abdomen/Kub 1view (09/02/17 22:05) Ondansetron Injection (Zofran Injectio (09/02/17 23:15) Medications Given in ED Current Medications Medications Dose Ordered Sig/Neal Route Start Time Stop Time Status Last Admin Dose Admin Ondansetron HCl 8 mg ONCE ONCE IVP 09/02/17 21:30 09/02/17 21:31 DC 09/02/17 21:47 8 MG Ondansetron HCl 8 mg ONCE ONCE IVP 09/02/17 23:15 09/02/17 23:17 DC 09/02/17 23:45 8 MG Sodium Chloride 1,000 ml @ 0 mls/hr Q0M ONCE IV 09/02/17 21:27 09/02/17 21:30 DC 09/02/17 21:48 999 MLS/HR Vital Signs/I&O Vital Sign - Last 12Hours 09/02/17 09/02/17 09/02/17 21:17 21:47 23:50 Temp 97.8 97.8 97.3 Pulse 104 76 Resp 20 20 B/P (MAP) 179/119 (139) 123/69 (87) Pulse Ox 97 99 O2 Delivery Room Air Room Air Intake and Output 09/03/17 00:00 Intake Total 1000 ml Balance 1000 ml Progress Note : Progress Note PAIN AND NAUSEA RELIEVED WITH ZOFRAN AND TORADOL. PT NOW SITTING QUIETLY UPRIGHT IN BED, DRINKING SPRITE DOES NOT APPEAR TO BE IN ANY DISCOMFORT OR DISTRESS Diagnostic Imaging Comments CT ABDOMEN/PELVIS--FLUID COLLECTION IN LEFT ANTERIOR-LATERAL SUB Q SOFT TISSUES 5.1 X 15.7 X 10.3. FLUID COLLECTION COMMUNICATES THROUGH A DEFECT IN THE LEFT ABDOMINAL MUSCULATURE INTO THE PERITONEAL SPACE WHERE IT CONTACTS A LOOP OF BOWEL. SOFT TISSUE EDEMA NOTED AROUND THE AREA OF FLUID COLLECTION. MAY REPRESENT POST OP ABSCESS, OR HEMATOMA. POSSIBILITY OF ENTEROCUTANEOUS FISTULA CANNOT BE EXCLUDED. --PER [facility] VIA FAX @ 1155 Reviewed: Reviewed by Me Departure Communication (Admissions) Progress Notes [id number]--PAGING DR. LYLES [id number]--SPOKE WITH DR. LYLES. ACCEPTS PT FOR ADMIT. ORDERS NOTED Impression Impression: Primary Impression: POST OPERATIVE FLUID COLLECTION LEFT ABDOMEN. Additional Impression: S/P LEFT INCISIONAL HERNIA REPAIR Disposition: ADMITTED INPATIENT Condition: Improved Admissions Decision to Admit Reason: Admit from ER (General) Decision to Admit/Date: Sep 03, 2017 Time/Decision to Admit Time: 00:01 Departure-Patient Inst. Referrals: CARMEN GIBBS MD (PCP/Family) Primary Care Physician YAN CHAPARRO DO Sep 02, 2017 21:41
[2017-09-02 21:55] LABS: BASOPHILS # (AUTO) 0.1 10^3/uL (0.0-0.1); BASOPHILS % (AUTO) 1 % (0-10); EOSINOPHILS # (AUTO) 0.6 10^3/uL (0.0-0.3); EOSINOPHILS % (AUTO) 5 % (0-10); HEMATOCRIT 37 % (35-52); HEMOGLOBIN 12.5 G/DL (11.5-16.0); LYMPHOCYTES # (AUTO) 3.2 X 10^3 (1.0-4.0); LYMPHOCYTES % (AUTO) 27 % (12-44); MEAN CORPUSCULAR HEMOGLOBIN 29 PG (25-34); MEAN CORPUSCULAR HGB CONC 33 G/DL (32-36); MEAN CORPUSCULAR VOLUME 85 FL (80-99); MONOCYTES # (AUTO) 0.5 X 10^3 (0.0-1.0); MONOCYTES % (AUTO) 4 % (0-12); NEUTROPHILS # (AUTO) 7.4 X 10^3 (1.8-7.8); NEUTROPHILS % (AUTO) 63 % (42-75); PLATELET COUNT 367 10^3/uL (130-400); RED BLOOD COUNT 4.38 10^6/uL (4.35-5.85); WHITE BLOOD COUNT 11.7 10^3/uL (4.3-11.0)
--- OUTSIDE RECORDS SUMMARY | 2017-09-02 21:57 | XMS REPORT | Continuity of Care Document ---
Author Author Formerly [facility] Address Unknown Phone Unavailable Allergies Active Description Code Type Severity Reaction Onset Reported/Identified Relationship to Patient Clinical Status Yes Demerol Drug Allergy N/A N/A 08/04/2008 Yes fentanyl Drug Allergy N/A N/A 08/04/2008 Yes Penicillins Drug Allergy N/A N/A 08/04/2008 Yes Demerol Drug Allergy 08/04/2008 Yes fentanyl Drug Allergy 08/04/2008 Yes Penicillins Drug Allergy 08/04/2008 Yes fentanyl [id number] Drug Allergy Unknown N/A 05/23/2016 Yes meperidine [id number] Drug Allergy Unknown N/A 08/20/2017 Yes penicillin G [id number] Drug Allergy Unknown N/A 08/20/2017 Medications There [...] DO, EMIL K 784.0 Headache 08/04/2008 KIM PROFESSOR OF KINESIOLOGY, OSMAN T 577.9 PANCREATITIS 08/04/2008 KIM PROFESSOR OF KINESIOLOGY, OSMAN T 780.79 FATIGUE 08/04/2008 KIM PROFESSOR OF KINESIOLOGY OSMAN T 784.0 Headache 08/04/2008 ROLON DO, EMIL K 577.9 PANCREATITIS 08/04/2008 ROLON DO, EMIL K 780.79 FATIGUE 08/04/2008 ROLON DO, EMIL K 784.0 Headache 08/04/2008 ROLON DO, EMIL K 577.9 PANCREATITIS 08/04/2008 ROLON DO, EMIL K 780.79 FATIGUE 08/04/2008 ROLON DO, EMIL K 784.0 Headache 08/04/2008 LUIS ALFREDO PROFESSOR OF KINESIOLOGY, BRENNA R 577.9 PANCREATITIS 08/04/2008 LUIS ALFREDO PROFESSOR OF KINESIOLOGY, BRENNA R 780.79 FATIGUE 08/04/2008 LUIS ALFREDO PROFESSOR OF KINESIOLOGY, BRENNA R 784.0 Headache 08/04/2008 MAD PROFESSOR OF KINESIOLOGY, ANSON L 577.9 PANCREATITIS 08/04/2008 MAD PROFESSOR OF KINESIOLOGY, ANSON L 780.79 FATIGUE 08/04/2008 MAD PROFESSOR OF KINESIOLOGY, ANSON L 784.0 Headache 08/04/2008 LUIS ALFREDO YUN, BRENNA R 577.9 PANCREATITIS 08/04/2008 LUIS ALFREDO PROFESSOR OF KINESIOLOGY, BRENNA R 780.79 FATIGUE 08/04/2008 LUIS ALFREDO YUN, BRENNA R 784.0 Headache 08/04/2008 SAI PARISH, CARMEN N 577.9 PANCREATITIS 08/04/2008 CARMEN GIBBS MD N 780.79 FATIGUE 08/04/2008 CARMEN GIBBS MD N 784.0 Headache 08/04/2008 ROLON DO, EMIL K 577.9 PANCREATITIS 08/04/2008 ROLON DO, EMIL K 780.79 FATIGUE 08/04/2008 ROLON DO, EMIL K 784.0 Headache 08/04/2008 MICHELINE PROFESSOR OF KINESIOLOGY, RAQUEL R 577.9 PANCREATITIS 08/04/2008 MICHELINE PROFESSOR OF KINESIOLOGY, RAQUEL R 780.79 FATIGUE 08/04/2008 MICHELINE PROFESSOR OF KINESIOLOGY, RAQUEL R 784.0 Headache 08/04/2008 CARMEN GIBBS MD N 577.9 PANCREATITIS 08/04/2008 CARMEN GIBBS MD N 780.79 FATIGUE 08/04/2008 CARMEN GIBBS MD N 784.0 Headache 08/04/2008 LOBATO PROFESSOR OF KINESIOLOGY, BRENNA R 577.9 PANCREATITIS 08/04/2008 LOBATO PROFESSOR OF KINESIOLOGY, BRENNA R 780.79 FATIGUE 08/04/2008 LOBATO PROFESSOR OF KINESIOLOGY, BRENNA R 784.0 Headache 08/04/2008 MICHELINE PROFESSOR OF KINESIOLOGY, RAQUEL R 577.9 PANCREATITIS 08/04/2008 MICHELINE PROFESSOR OF KINESIOLOGY, RAQUEL R 780.79 FATIGUE 08/04/2008 MICHELINE PROFESSOR OF KINESIOLOGY, RAQUEL R 784.0 Headache 08/04/2008 CARMEN GIBBS MD N 577.9 PANCREATITIS 08/04/2008 CARMEN GIBBS MD N 780.79 FATIGUE 08/04/2008 CARMEN GIBBS MD N 784.0 Headache 08/04/2008 MADL PROFESSOR OF KINESIOLOGY, ANSON L 577.9 PANCREATITIS 08/04/2008 MADL PROFESSOR OF KINESIOLOGY, ANSON L 780.79 FATIGUE 08/04/2008 MADL PROFESSOR OF KINESIOLOGY, ANSON L 784.0 Headache 08/04/2008 MADL PROFESSOR OF KINESIOLOGY, ANSON L 577.9 PANCREATITIS 08/04/2008 MADL PROFESSOR OF KINESIOLOGY, ANSON L 780.79 FATIGUE 08/04/2008 MADL PROFESSOR OF KINESIOLOGY, ANSON L 784.0 Headache 08/04/2008 MICHELINE PROFESSOR OF KINESIOLOGY, RAQUEL R 577.9 PANCREATITIS 08/04/2008 MICHELINE PROFESSOR OF KINESIOLOGY, RAQUEL R 780.79 FATIGUE 08/04/2008 MICHELINE PROFESSOR OF KINESIOLOGY, RAQUEL R 784.0 Headache 08/04/2008 WHITE DDS, [...] DO, EMIL K 784.0 Headache 08/04/2008 MADL PROFESSOR OF KINESIOLOGY, ANSON L 577.9 PANCREATITIS 08/04/2008 MADL PROFESSOR OF KINESIOLOGY, ANSON L 780.79 FATIGUE 08/04/2008 MADL PROFESSOR OF KINESIOLOGY, ANSON L 784.0 Headache 08/04/2008 CARMEN GIBBS MD N 577.9 PANCREATITIS 08/04/2008 CARMEN GIBBS MD N 780.79 FATIGUE 08/04/2008 CARMEN GIBBS MD N 784.0 Headache 08/04/2008 CARMEN GIBBS MD N 577.9 PANCREATITIS 08/04/2008 CARMEN GIBBS MD N 780.79 FATIGUE 08/04/2008 CARMEN GIBBS MD N 784.0 Headache 08/04/2008 MADL PROFESSOR OF KINESIOLOGY, ANSON L 577.9 PANCREATITIS 08/04/2008 MADL PROFESSOR OF KINESIOLOGY, ANSON L 780.79 FATIGUE 08/04/2008 MADL PROFESSOR OF KINESIOLOGY, ANSON L 784.0 Headache 08/04/2008 GONZALES GAMING [...] BAUMANN, BRENNA R 493.90 ASTHMA 03/31/2009 MICHELINE PROFESSOR OF KINESIOLOGY, RAQUEL R 493.90 ASTHMA 03/31/2009 CARMEN GIBBS MD N 493.90 ASTHMA 03/31/2009 MADL PROFESSOR OF KINESIOLOGY, ANSON L 493.90 ASTHMA 03/31/2009 MADL PROFESSOR OF KINESIOLOGY, ANSON L 493.90 ASTHMA 03/31/2009 MICHELINE PROFESSOR OF KINESIOLOGY, RAQUEL R 493.90 ASTHMA 03/31/2009 JOSH VILLAVICENCIO, ELLIOT Alston 493.90 ASTHMA 03/31/2009 SAI APRISH, CARMEN N 493.90 ASTHMA 03/31/2009 SUDHIR ROLON DOA K 493.90 ASTHMA 03/31/2009 MADBenji PROFESSOR OF KINESIOLOGY, ANSON L 493.90 ASTHMA 03/31/2009 CARMEN GIBBS MD N 493.90 ASTHMA 03/31/2009 CARMEN GIBBS MD N 493.90 ASTHMA 03/31/2009 MADL PROFESSOR OF KINESIOLOGY, ANSON L 493.90 ASTHMA 03/31/2009 SUDHIR ROLON [...] Screening Examination For Pulmonary Tuberculosis 04/25/2009 SHERI PROFESSOR OF KINESIOLOGY, ANSON L V74.1 Screening Examination For Pulmonary [...] N 112.0 Candidiasis Oral Thrush 04/26/2009 MADL PROFESSOR OF KINESIOLOGY, ANSON L 112.0 Candidiasis Oral Thrush 04/26/2009 MADL PROFESSOR OF KINESIOLOGY, ANSON L 112.0 Candidiasis Oral Thrush 04/26/2009 [...] WADE APRN 597.80 Urethritis, Unspecified 09/05/2009 LOBATO PROFESSOR OF KINESIOLOGY, BRENNA R 597.80 Urethritis, Unspecified 09/05/2009 SAI PARISH, CARMEN N 597.80 Urethritis, Unspecified 09/05/2009 ROLON DO, EMIL K 597.80 Urethritis, Unspecified 09/05/2009 MICHELINE PROFESSOR OF KINESIOLOGY, RAQUEL R 597.80 Urethritis, Unspecified 09/05/2009 SAI PARISH, CARMEN N 597.80 Urethritis, Unspecified 09/05/2009 CRISTINO LOBATO APRNIA R 597.80 Urethritis, Unspecified 09/05/2009 MICHELINE PROFESSOR OF KINESIOLOGY, RAQUEL R 597.80 Urethritis, Unspecified 09/05/2009 SAI PARISH, CARMEN N 597.80 Urethritis, Unspecified 09/05/2009 MADL PROFESSOR OF KINESIOLOGY, ANSON L 597.80 Urethritis, Unspecified 09/05/2009 MADL PROFESSOR OF KINESIOLOGY, ANSON L 597.80 Urethritis, Unspecified 09/05/2009 MICHELINE PROFESSOR OF KINESIOLOGY, RAQUEL R 597.80 Urethritis, Unspecified 09/05/2009 JOSH VILLAVICENCIO, ELLIOT Alston 597.80 Urethritis, Unspecified 09/05/2009 SAI PARISH, CARMEN N 597.80 Urethritis, Unspecified 09/05/2009 GONZALES GAMING, MEIL K 597.80 Urethritis, Unspecified 09/05/2009 MADBenji PROFESSOR OF KINESIOLOGY, ANSON L 597.80 Urethritis, Unspecified 09/05/2009 SAI PARISH, CARMEN N 597.80 Urethritis, Unspecified 09/05/2009 SAI PARISH, CARMEN N 597.80 Urethritis, Unspecified 09/05/2009 MADL PROFESSOR OF KINESIOLOGY, ANSON L 597.80 Urethritis, Unspecified 09/05/2009 ROLON [...] Pain In Joint, Lower Leg 09/24/2009 MADL PROFESSOR OF KINESIOLOGY, ANSON L 719.46 Pain In Joint, Lower Leg 09/24/2009 MADL PROFESSOR OF KINESIOLOGY, ANSON L 719.46 Pain In Joint, Lower [...] MICHELINE BAUMANN, RAQUEL R 704.8 Folliculitis 12/20/2009 CARMNE GIBBS MD N 704.8 Folliculitis 12/20/2009 BRENNA LOBATO APRN R 704.8 Folliculitis 12/20/2009 MICHELINE BAUMANN, RAQUEL R 704.8 Folliculitis 12/20/2009 CARMEN GIBBS MD N 704.8 Folliculitis 12/20/2009 MADBenji PROFESSOR OF KINESIOLOGY, ANSON L 704.8 Folliculitis 12/20/2009 JOSE FRANCISCOL [...] N 709.9 Dermatology - Non-infectious 02/03/2010 MADL PROFESSOR OF KINESIOLOGY, ASNON L 709.9 Dermatology - Non-infectious 02/03/2010 MADL PROFESSOR OF KINESIOLOGY, ANSON L 709.9 Dermatology - Non-infectious 02/03/2010 MICHELINE PROFESSOR OF KINESIOLOGY, RAQUEL R 709.9 Dermatology - Non-infectious 02/03/2010 JOSH JETERS, ELLIOT J 709.9 Dermatology - Non-infectious 02/03/2010 SAI PARISH, CARMEN N 709.9 Dermatology - Non-infectious 02/03/2010 ROLON , EMIL K 709.9 Dermatology - Non-infectious 02/03/2010 MADBenji PROFESSOR OF KINESIOLOGY, ANSON L 709.9 Dermatology - Non-infectious 02/03/2010 SAI PARISH, CARMEN N 709.9 Dermatology - Non-infectious 02/03/2010 SAI PARISH, CARMEN N 709.9 Dermatology - Non-infectious 02/03/2010 SHERI PROFESSOR OF KINESIOLOGY, ANSON L 709.9 Dermatology - Non-infectious 02/03/2010 [...] BAUMANN, BRENNA R 276.5 DEHYDRATION 02/08/2010 MADL PROFESSOR OF KINESIOLOGY, ANSON L 276.5 DEHYDRATION 02/08/2010 LUIS ALFREDO BAUMANN, BRENNA R 276.5 DEHYDRATION 02/08/2010 CARMEN GIBBS MD N 276.5 DEHYDRATION 02/08/2010 ROLON DO, EMIL K 276.5 DEHYDRATION 02/08/2010 MICHELINE BAUMANN, RAQUEL R 276.5 DEHYDRATION 02/08/2010 CARMEN GIBBS MD N 276.5 DEHYDRATION 02/08/2010 CRISTINO LOBATO APRNIA R 276.5 DEHYDRATION 02/08/2010 MICHELINE BAUMANN, RAQUEL R 276.5 DEHYDRATION 02/08/2010 CARMEN GIBBS MD N 276.5 DEHYDRATION 02/08/2010 SHERI PROFESSOR OF KINESIOLOGY, ANSON L 276.5 DEHYDRATION 02/08/2010 MADBenji PROFESSOR OF KINESIOLOGY, ANSON L 276.5 DEHYDRATION 02/08/2010 MICHELINE PROFESSOR OF KINESIOLOGY, RAQUEL R 276.5 DEHYDRATION 02/08/2010 ELLIOT MORENO [...] 02/15/2010 110.4 Dermatophytosis, Of Foot 02/15/2010 BRENNA LOABTO APRN R 110.4 Dermatophytosis, Of Foot 02/15/2010 [...] K 333.99 RESTLESS LEG SYNDROME 04/17/2010 MICHELINE ABUMANN RAQUEL R 333.99 RESTLESS LEG SYNDROME 04/17/2010 CARMEN GIBBS MD N 333.99 RESTLESS LEG SYNDROME 04/17/2010 EMREY LOBATO APRNRICIA R 333.99 RESTLESS LEG SYNDROME [...] EMIL K 788.31 Urge Incontinence 05/22/2010 MICHELINE PROFESSOR OF KINESIOLOGY, RAQUEL R 788.31 Urge Incontinence 05/22/2010 CARMEN GIBBS MD N 788.31 Urge Incontinence 05/22/2010 CRISTINO LOBATO APRNIA R 788.31 Urge Incontinence 05/22/2010 MICHELINE PROFESSOR OF KINESIOLOGY, RAQUEL R 788.31 Urge Incontinence 05/22/2010 CARMEN GIBBS MD N 788.31 Urge Incontinence 05/22/2010 MADL PROFESSOR OF KINESIOLOGY, ANSON L 788.31 Urge Incontinence 05/22/2010 MADL PROFESSOR OF KINESIOLOGY, ANSON L 788.31 Urge Incontinence 05/22/2010 MICHELINE [...] DO, EMIL K 706.8 Xerosis 08/22/2010 KIM PROFESSOR OF KINESIOLOGY, OSMAN T 272.4 HYPERLIPIDEMIA 08/22/2010 KIM PROFESSOR OF KINESIOLOGY OSMAN T 706.8 Xerosis 08/22/2010 ROLON DO, EMIL K 272.4 HYPERLIPIDEMIA 08/22/2010 ROLON DO, EMIL K 706.8 Xerosis 08/22/2010 ROLON DO, EMIL K 272.4 HYPERLIPIDEMIA 08/22/2010 ROLON DO, EMIL K 706.8 Xerosis 08/22/2010 LUIS ALFREDO PROFESSOR OF KINESIOLOGY, BRENNA R 272.4 HYPERLIPIDEMIA 08/22/2010 LOBATO PROFESSOR OF KINESIOLOGY, BRENNA R 706.8 Xerosis 08/22/2010 MADL PROFESSOR OF KINESIOLOGY, ANSON L 272.4 HYPERLIPIDEMIA 08/22/2010 MADL PROFESSOR OF KINESIOLOGY, ANSON L 706.8 Xerosis 08/22/2010 LUIS ALFREDO [...] BAUMANN, BRENNA R 706.8 Xerosis 08/22/2010 MICHELINE BAUMNAN, RAQUEL R 272.4 HYPERLIPIDEMIA 08/22/2010 MICHELINE BAUMANN, RAQUEL R 706.8 Xerosis 08/22/2010 CARMEN GIBBS MD N 272.4 HYPERLIPIDEMIA 08/22/2010 CARMEN GIBBS MD N 706.8 Xerosis 08/22/2010 MADL PROFESSOR OF KINESIOLOGY, ANSON L 272.4 HYPERLIPIDEMIA 08/22/2010 MADL PROFESSOR OF KINESIOLOGY, ANSON L 706.8 Xerosis 08/22/2010 MADL PROFESSOR OF KINESIOLOGY, ANSON L 272.4 HYPERLIPIDEMIA 08/22/2010 MADL PROFESSOR OF KINESIOLOGY, ANSON L 706.8 Xerosis 08/22/2010 MICHELINE PROFESSOR OF KINESIOLOGY, RAQUEL R 272.4 HYPERLIPIDEMIA 08/22/2010 MICHELINE PROFESSOR OF KINESIOLOGY, RAQUEL R 706.8 Xerosis 08/22/2010 WHITE DDS, ELLIOT J 272.4 HYPERLIPIDEMIA 08/22/2010 WHITE DDS, ELLIOT J 706.8 Xerosis 08/22/2010 CARMEN GIBBS MD N 272.4 HYPERLIPIDEMIA 08/22/2010 CARMEN GIBBS MD N 706.8 Xerosis 08/22/2010 ROLON DO, EMIL K 272.4 HYPERLIPIDEMIA 08/22/2010 ROLON DO, EMIL K 706.8 Xerosis 08/22/2010 MADL PROFESSOR OF KINESIOLOGY, ANSON L 272.4 HYPERLIPIDEMIA 08/22/2010 MADL PROFESSOR OF KINESIOLOGY, ANSON L 706.8 Xerosis 08/22/2010 CARMEN GIBBS MD N 272.4 HYPERLIPIDEMIA 08/22/2010 CARMEN GIBBS MD N 706.8 Xerosis 08/22/2010 CARMEN GIBBS MD N 272.4 HYPERLIPIDEMIA 08/22/2010 CARMEN GIBBS MD N 706.8 [facility]osis 08/22/2010 [facility] ANSON L 272.4 HYPERLIPIDEMIA 08/22/2010 MADL PROFESSOR OF KINESIOLOGY, ANSON L 706.8 Xerosis 08/22/2010 ROLON DO, [...] CARMEN GIBBS MD 577.1 CHRONIC PANCREATITIS 09/28/2010 CAREMN GIBBS MD 577.1 CHRONIC PANCREATITIS 09/28/2010 RAQUEL [...] BRENNA R 577.1 CHRONIC PANCREATITIS 09/28/2010 SHERI PROFESSOR OF KINESIOLOGY, ANSON L 577.1 CHRONIC PANCREATITIS 09/28/2010 LUIS [...] GIBBS MD 577.1 CHRONIC PANCREATITIS 09/28/2010 SHERI PROFESSOR OF KINESIOLOGY, ANSON L 577.1 CHRONIC PANCREATITIS 09/28/2010 JOSE FRANCISCOL PROFESSOR OF KINESIOLOGY, ANSON L 577.1 CHRONIC PANCREATITIS 09/28/2010 MICHELINE [...] Abdominal Pain Right Upper Quadrant 12/27/2010 SHERI PROFESSOR OF KINESIOLOGY, ANSON L 599.70 Hematuria Unspecified 12/27/2010 MADBenji PROFESSOR OF KINESIOLOGY, ANSON L 789.01 Abdominal Pain Right Upper Quadrant 12/27/2010 SHERI BAUMANN, ANSON L 599.70 Hematuria Unspecified 12/27/2010 SHERI PROFESSOR OF KINESIOLOGY, ANSON L 789.01 Abdominal Pain Right Upper [...] APRNWNYA L 599.70 Hematuria Unspecified 12/27/2010 MADL PROFESSOR OF KINESIOLOGY, ANSON L 789.01 Abdominal Pain Right Upper Quadrant 12/27/2010 CARMEN GIBBS MD N 599.70 Hematuria Unspecified 12/27/2010 CARMEN GIBBS MD N 789.01 Abdominal Pain Right Upper Quadrant 12/27/2010 CARMEN GIBBS MD N 599.70 Hematuria Unspecified 12/27/2010 CARMEN GIBBS MD 789.01 Abdominal Pain Right Upper Quadrant 12/27/2010 MADL PROFESSOR OF KINESIOLOGY, ANSON L 599.70 Hematuria Unspecified 12/27/2010 MADL PROFESSOR OF KINESIOLOGY, ANSON L 789.01 Abdominal Pain Right Upper [...] R 786.52 Chest Wall Pain 01/11/2011 MADL PROFESSOR OF KINESIOLOGY, ANSON L 786.52 Chest Wall Pain 01/11/2011 [...] MD 786.52 Chest Wall Pain 01/11/2011 SHERI PROFESSOR OF KINESIOLOGY, ANSON L 786.52 Chest Wall Pain 01/11/2011 SHERI PROFESSOR OF KINESIOLOGY, ANSON L 786.52 Chest Wall Pain 01/11/2011 MICHELINE BAUMANN RAQUEL R 786.52 Chest Wall Pain 01/11/2011 WHITE DDS, ELLIOT J 786.52 Chest Wall Pain 01/11/2011 CARMEN GIBBS MD 786.52 Chest Wall Pain 01/11/2011 ROLON DO, EMIL K 786.52 Chest Wall Pain 01/11/2011 MADBenji PROFESSOR OF KINESIOLOGY, ANSON L 786.52 Chest Wall Pain 01/11/2011 CARMEN GIBBS MD 786.52 Chest Wall Pain 01/11/2011 CARMEN GIBBS MD 786.52 Chest Wall Pain 01/11/2011 MADL PROFESSOR OF KINESIOLOGY, ANSON L 786.52 Chest Wall Pain 01/11/2011 [...] APRNIA R 780.52 INSOMNIA UNSPECIFIED 01/15/2011 MADBenji PROFESSOR OF KINESIOLOGYLETICIA ChristieA L 564.00 Constipation 01/15/2011 JOSE FRANCISCO PROFESSOR OF KINESIOLOGY, ANSON L 780.52 INSOMNIA UNSPECIFIED 01/15/2011 CRISTINO [...] GIBBS MD 780.52 INSOMNIA UNSPECIFIED 01/15/2011 MADL PROFESSOR OF KINESIOLOGY, ANSON L 564.00 Constipation 01/15/2011 MADL PROFESSOR OF KINESIOLOGY, ANSON L 780.52 INSOMNIA UNSPECIFIED 01/15/2011 MADL PROFESSOR OF KINESIOLOGY, ANSON L 564.00 Constipation 01/15/2011 MADL PROFESSOR OF KINESIOLOGY, ANSON L 780.52 INSOMNIA UNSPECIFIED 01/15/2011 MICHELINE PROFESSOR OF KINESIOLOGY, RAQUEL R 564.00 Constipation 01/15/2011 MICHELINE PROFESSOR OF KINESIOLOGY, RAQUEL R 780.52 INSOMNIA UNSPECIFIED 01/15/2011 WHITE DDS, ELLIOT J 564.00 Constipation 01/15/2011 WHITE DDS, ELLIOT J 780.52 INSOMNIA UNSPECIFIED 01/15/2011 CARMEN GIBBS MD N 564.00 Constipation 01/15/2011 CARMEN GIBBS MD 780.52 INSOMNIA UNSPECIFIED 01/15/2011 SUDHIR ROLON DOA K 564.00 Constipation 01/15/2011 SUDHIR ROLON DOA K 780.52 INSOMNIA UNSPECIFIED 01/15/2011 MADL PROFESSOR OF KINESIOLOGY, ANSON L 564.00 Constipation 01/15/2011 MADL PROFESSOR OF KINESIOLOGY, ANSON L 780.52 INSOMNIA UNSPECIFIED 01/15/2011 CARMEN GIBBS MD N 564.00 Constipation 01/15/2011 CARMEN GIBBS MD 780.52 INSOMNIA UNSPECIFIED 01/15/2011 CARMEN GIBBS MD N 564.00 Constipation 01/15/2011 CARMEN GIBBS MD 780.52 INSOMNIA UNSPECIFIED 01/15/2011 MADL PROFESSOR OF KINESIOLOGY, ANSON L 564.00 Constipation 01/15/2011 MADL PROFESSOR OF KINESIOLOGY, ANSON L 780.52 INSOMNIA UNSPECIFIED 01/15/2011 ROLON DO EMIL K 564.00 Constipation 01/15/2011 ROLON DO EMIL K 780.52 INSOMNIA UNSPECIFIED 02/02/2011 MUOGHALU DDS, REGINO N 401.1 HYPERTENSION, BENIGN ESSENTIAL 02/02/2011 BONITAU DDSREGINO N V17.49 FAM HX HYPERTENSION 02/02/2011 401.1 HYPERTENSION, BENIGN ESSENTIAL 02/02/2011 V17.49 FAM HX HYPERTENSION 02/02/2011 LOBATO PROFESSOR OF KINESIOLOGY, BRENNA R 401.1 HYPERTENSION, BENIGN ESSENTIAL 02/02/2011 [...] V17.49 FAM HX HYPERTENSION 02/02/2011 ROLON DO, EMLI K 401.1 HYPERTENSION, BENIGN ESSENTIAL 02/02/2011 ROLON [...] R V17.49 FAM HX HYPERTENSION 02/02/2011 MADL PROFESSOR OF KINESIOLOGY, ANSON L 401.1 HYPERTENSION, BENIGN ESSENTIAL 02/02/2011 [...] MD V17.49 FAM HX HYPERTENSION 02/02/2011 MADL PROFESSOR OF KINESIOLOGY, ANSON L 401.1 HYPERTENSION, BENIGN ESSENTIAL 02/02/2011 MADL PROFESSOR OF KINESIOLOGY, ANSON L V17.49 FAM HX HYPERTENSION 02/02/2011 MADL PROFESSOR OF KINESIOLOGY, ANSON L 401.1 HYPERTENSION, BENIGN ESSENTIAL 02/02/2011 MADL PROFESSOR OF KINESIOLOGY, ANSON L V17.49 FAM HX HYPERTENSION 02/02/2011 MICHELINE PROFESSOR OF KINESIOLOGY, RAQUEL R 401.1 HYPERTENSION, BENIGN ESSENTIAL 02/02/2011 MICHELINE PROFESSOR OF KINESIOLOGY, RAQUEL R V17.49 FAM HX HYPERTENSION 02/02/2011 WHITE DDS, ELLIOT J 401.1 HYPERTENSION, BENIGN ESSENTIAL 02/02/2011 WHITE DDS, ELLIOT J V17.49 FAM HX HYPERTENSION 02/02/2011 CARMEN GIBBS MD N 401.1 HYPERTENSION, BENIGN ESSENTIAL 02/02/2011 CARMEN GIBBS MD N V17.49 FAM HX HYPERTENSION 02/02/2011 ROLON DO, EMIL K 401.1 HYPERTENSION, BENIGN ESSENTIAL 02/02/2011 ROLON DO, EMIL K V17.49 FAM HX HYPERTENSION 02/02/2011 [facility] ANSON L 401.1 HYPERTENSION, BENIGN ESSENTIAL 02/02/2011 [facility] PROFESSOR OF KINESIOLOGY, ANSON L V17.49 FAM HX HYPERTENSION 02/02/2011 CARMEN GIBBS MD N 401.1 HYPERTENSION, BENIGN ESSENTIAL 02/02/2011 CARMEN GIBBS MD N V17.49 FAM HX HYPERTENSION 02/02/2011 CARMEN GIBBS MD N 401.1 HYPERTENSION, BENIGN ESSENTIAL 02/02/2011 CARMEN GIBBS MD N V17.49 FAM HX HYPERTENSION 02/02/2011 [facility] PROFESSOR OF KINESIOLOGY, ANSON L 401.1 HYPERTENSION, BENIGN ESSENTIAL 02/02/2011 [facility] PROFESSOR OF KINESIOLOGY, ANSON L V17.49 FAM HX HYPERTENSION 02/02/2011 [...] Vertigo- Benign Paroxysmal Positional 03/28/2011 ROLON DO, MEIL K 386.11 Vertigo- Benign Paroxysmal Positional 03/28/2011 [...] 386.11 Vertigo- Benign Paroxysmal Positional 03/28/2011 MADL PROFESSOR OF KINESIOLOGY, ANSON L 386.11 Vertigo- Benign Paroxysmal Positional 03/28/2011 MADL PROFESSOR OF KINESIOLOGY, ANSON L 386.11 Vertigo- Benign Paroxysmal Positional 03/28/2011 MICHELINE BAUMANN RAQUEL R 386.11 Vertigo- Benign Paroxysmal Positional 03/28/2011 JOSH VILLAVICENCIO, ELLIOT J 386.11 Vertigo- Benign Paroxysmal Positional 03/28/2011 CARMEN GIBBS MD N 386.11 Vertigo- Benign Paroxysmal Positional 03/28/2011 ROLON DO, EMIL K 386.11 Vertigo- Benign Paroxysmal Positional 03/28/2011 MADL PROFESSOR OF KINESIOLOGY, ANSON L 386.11 Vertigo- Benign Paroxysmal Positional 03/28/2011 CARMEN GIBBS MD N 386.11 Vertigo- Benign Paroxysmal Positional 03/28/2011 CARMEN GIBBS MD N 386.11 Vertigo- Benign Paroxysmal Positional 03/28/2011 MADL PROFESSOR OF KINESIOLOGY, ANSON L 386.11 Vertigo- Benign Paroxysmal Positional [...] (3 Yrs And Above, Im) 04/12/2011 LOBATO PROFESSOR OF KINESIOLOGY, BRENNA R 892.0 Open Wound Of Foot Except Toe(s) Alone Without Complication 04/12/2011 LOBATO PROFESSOR OF KINESIOLOGY, BRENNA R 917.8 Other And Unspecified Superficial Injury Of Foot And Toes Without Infection 04/12/2011 LOBATO PROFESSOR OF KINESIOLOGY, BRENNA R V04.81 Flu Dx (3 Yrs And Above, Im) 04/12/2011 MADL PROFESSOR OF KINESIOLOGY, ANSON L 892.0 Open Wound Of Foot Except Toe(s) Alone Without Complication 04/12/2011 MADL PROFESSOR OF KINESIOLOGY, ANSON L 917.8 Other And Unspecified Superficial Injury Of Foot And Toes Without Infection 04/12/2011 MADL PROFESSOR OF KINESIOLOGY, ANSON L V04.81 Flu Dx (3 Yrs And Above, Im) 04/12/2011 LOBATO PROFESSOR OF KINESIOLOGY, BRENNA R 892.0 Open Wound Of Foot Except Toe(s) Alone Without Complication 04/12/2011 LOBATO PROFESSOR OF KINESIOLOGY, BRENNA R 917.8 Other And Unspecified Superficial Injury Of Foot And Toes Without Infection 04/12/2011 LUIS ALFREDO PROFESSOR OF KINESIOLOGY, BRENNA R V04.81 Flu Dx (3 Yrs [...] Foot And Toes Without Infection 04/12/2011 MICHELINE PROFESSOR OF KINESIOLOGY, RAQUEL R V04.81 Flu Dx (3 Yrs And Above, Im) 04/12/2011 CARMEN GIBBS MD N 892.0 Open Wound Of Foot Except Toe(s) Alone Without Complication 04/12/2011 CARMEN GIBBS MD N 917.8 Other And Unspecified Superficial Injury Of Foot And Toes Without Infection 04/12/2011 CARMEN GIBBS MD V04.81 Flu Dx (3 Yrs And Above, Im) 04/12/2011 MADL PROFESSOR OF KINESIOLOGY, ANSON L 892.0 Open Wound Of Foot Except Toe(s) Alone Without Complication 04/12/2011 MADL PROFESSOR OF KINESIOLOGY, ANSON L 917.8 Other And Unspecified Superficial Injury Of Foot And Toes Without Infection 04/12/2011 MADL PROFESSOR OF KINESIOLOGY, ANSON L V04.81 Flu Dx (3 Yrs And Above, Im) 04/12/2011 MADL PROFESSOR OF KINESIOLOGY, ANSON L 892.0 Open Wound Of Foot Except Toe(s) Alone Without Complication 04/12/2011 MADL PROFESSOR OF KINESIOLOGY, ANSON L 917.8 Other And Unspecified Superficial Injury Of Foot And Toes Without Infection 04/12/2011 MADL PROFESSOR OF KINESIOLOGY, ANSON L V04.81 Flu Dx (3 Yrs And Above, Im) 04/12/2011 MICHELINE PROFESSOR OF KINESIOLOGY, RAQUEL R 892.0 Open Wound Of Foot Except Toe(s) Alone Without Complication 04/12/2011 MICHELINE PROFESSOR OF KINESIOLOGY, RAQUEL R 917.8 Other And Unspecified Superficial [...] (3 Yrs And Above, Im) 04/12/2011 MADL PROFESSOR OF KINESIOLOGY, ANSON L 892.0 Open Wound Of Foot Except Toe(s) Alone Without Complication 04/12/2011 MADL PROFESSOR OF KINESIOLOGY, ANSON L 917.8 Other And Unspecified Superficial Injury Of Foot And Toes Without Infection 04/12/2011 MADL PROFESSOR OF KINESIOLOGY, ANSON L V04.81 Flu Dx (3 Yrs [...] (3 Yrs And Above, Im) 04/12/2011 MADBenji PROFESSOR OF KINESIOLOGY, ANSON L 892.0 Open Wound Of Foot Except Toe(s) Alone Without Complication 04/12/2011 MADBenji PROFESSOR OF KINESIOLOGY, ANSON L 917.8 Other And Unspecified Superficial Injury Of Foot And Toes Without Infection 04/12/2011 MADL PROFESSOR OF KINESIOLOGY, ANSON L V04.81 Flu Dx (3 Yrs [...] ALLERGIC RHINITIS CAUSE UNSPECIFIED 04/13/2011 MICHELINE BAUMANN, ARQUEL R 477.9 ALLERGIC RHINITIS CAUSE UNSPECIFIED 04/13/2011 CARMEN GIBBS MD 477.9 ALLERGIC RHINITIS CAUSE UNSPECIFIED 04/13/2011 MADL PROFESSOR OF KINESIOLOGY, ANSON L 477.9 ALLERGIC RHINITIS CAUSE UNSPECIFIED 04/13/2011 MADL PROFESSOR OF KINESIOLOGY ANSON L 477.9 ALLERGIC RHINITIS CAUSE UNSPECIFIED [...] 789.00 Abdominal Pain Unspecified Site 04/17/2011 LOBATO PROFESSOR OF KINESIOLOGY, BRENNA R 599.0 Urinary Tract Infection 04/17/2011 LOBATO PROFESSOR OF KINESIOLOGY, BRENNA R 789.00 Abdominal Pain Unspecified Site [...] APRN 599.0 Urinary Tract Infection 04/17/2011 KIM PROFESSOR OF KINESIOLOGY, OSMAN T 789.00 Abdominal Pain Unspecified Site [...] 789.00 Abdominal Pain Unspecified Site 04/17/2011 MADL PROFESSOR OF KINESIOLOGY, ANSON L 599.0 Urinary Tract Infection 04/17/2011 MADL PROFESSOR OF KINESIOLOGY, ASNON L 789.00 Abdominal Pain Unspecified Site 04/17/2011 LUIS ALFREDO YUN BRENNA R 599.0 Urinary Tract Infection 04/17/2011 EMERY LOBATO APRNRICIA R 789.00 Abdominal Pain Unspecified Site 04/17/2011 CRAMEN GIBBS MD N 599.0 Urinary Tract Infection [...] 789.00 Abdominal Pain Unspecified Site 04/17/2011 MADL PROFESSOR OF KINESIOLOGY, ANSON L 599.0 Urinary Tract Infection 04/17/2011 MADL PROFESSOR OF KINESIOLOGY, ANSON L 789.00 Abdominal Pain Unspecified Site 04/17/2011 MADL PROFESSOR OF KINESIOLOGY, ANSON L 599.0 Urinary Tract Infection 04/17/2011 MADL PROFESSOR OF KINESIOLOGY, ANSON L 789.00 Abdominal Pain Unspecified Site 04/17/2011 MICHELINE PROFESSOR OF KINESIOLOGY, RAQUEL R 599.0 Urinary Tract Infection 04/17/2011 MICHELINE PROFESSOR OF KINESIOLOGY, RAQUEL R 789.00 Abdominal Pain Unspecified Site [...] 789.00 Abdominal Pain Unspecified Site 04/17/2011 MADL PROFESSOR OF KINESIOLOGY, ANSON L 599.0 Urinary Tract Infection 04/17/2011 MADL PROFESSOR OF KINESIOLOGY, ANSON L 789.00 Abdominal Pain Unspecified Site 04/17/2011 CARMEN GIBBS MD N 599.0 Urinary Tract Infection 04/17/2011 CARMEN GBIBS MD N 789.00 Abdominal Pain Unspecified Site 04/17/2011 CARMEN GIBBS MD N 599.0 Urinary Tract Infection 04/17/2011 CARMEN GIBBS MD N 789.00 Abdominal Pain Unspecified Site 04/17/2011 MADL PROFESSOR OF KINESIOLOGY, ANSON L 599.0 Urinary Tract Infection 04/17/2011 MADL PROFESSOR OF KINESIOLOGY, ANSON L 789.00 Abdominal Pain Unspecified Site 04/17/2011 ROOLN DO, EMIL K 599.0 Urinary Tract Infection 04/17/2011 ROLON DO, EMIL K 789.00 Abdominal Pain Unspecified Site 05/01/2011 DEB JETERS, REGINO N 625.9 Pelvic Pain 05/01/2011 625.9 Pelvic Pain 05/01/2011 LOBATO PROFESSOR OF KINESIOLOGY, BRENNA R 625.9 Pelvic Pain 05/01/2011 ROLON [...] K 625.9 Pelvic Pain 05/01/2011 LUIS ALFREDO PROFESSOR OF KINESIOLOGY, BRENNA R 625.9 Pelvic Pain 05/01/2011 JOSE FRANCISCOL PROFESSOR OF KINESIOLOGY, ANSON L 625.9 Pelvic Pain 05/01/2011 LUIS ALFREDO YUN, BRENNA R 625.9 Pelvic Pain 05/01/2011 CARMEN GIBBS MD N 625.9 Pelvic Pain 05/01/2011 ROLON DO, EMIL K 625.9 Pelvic Pain 05/01/2011 MICHELINE PROFESSOR OF KINESIOLOGY, RAQUEL R 625.9 Pelvic Pain 05/01/2011 CARMEN GIBBS MD N 625.9 Pelvic Pain 05/01/2011 LOBATO PROFESSOR OF KINESIOLOGY, BRENNA R 625.9 Pelvic Pain 05/01/2011 MICHELINE YUN, RAQUEL R 625.9 Pelvic Pain 05/01/2011 CARMEN GIBBS MD N 625.9 Pelvic Pain 05/01/2011 MADL PROFESSOR OF KINESIOLOGY, ANSON L 625.9 Pelvic Pain 05/01/2011 MADL PROFESSOR OF KINESIOLOGY, ANSON L 625.9 Pelvic Pain 05/01/2011 MIHCELINE YUN, RAQUEL R 625.9 Pelvic Pain 05/01/2011 [...] 786.50 Chest Pain Or Discomfort 05/30/2011 MADL PROFESSOR OF KINESIOLOGY, ANSON L 786.50 Chest Pain Or Discomfort [...] R 789.06 ABDOMINAL PAIN EPIGASTRIC 09/11/2011 CARMEN GIBSB MD 789.06 ABDOMINAL PAIN EPIGASTRIC 09/11/2011 ROLON [...] 11/05/2011 V74.5 Std Screen 11/05/2011 LUIS ALFREDO PROFESSOR OF KINESIOLOGY, BRENNA R 685.1 Pilonidal Cyst Without Abscess 11/05/2011 LUIS ALFREDO PROFESSOR OF KINESIOLOGY, BRENNA R V25.09 CONTRACEPTIVE COUNSELING - GENERAL 11/05/2011 LUIS ALFREDO PROFESSOR OF KINESIOLOGY, BRENNA R V65.3 COUNSELING - DIETARY 11/05/2011 [...] LOBATO APRNIA R V74.5 Std Screen 11/05/2011 SEHRI YULETICIA ChristieA L 685.1 Pilonidal Cyst Without [...] V65.3 COUNSELING - DIETARY 11/05/2011 JOSE FRANCISCOBenji PROFESSOR OF KINESIOLOGYLETICIA ChristieA L V65.41 EXERCISE COUNSELING 11/05/2011 JOSE FRANCISCOBenji PROFESSOR OF KINESIOLOGYLETICIA ChristieA L V74.5 Std Screen 11/05/2011 MALACHI [...] MD 685.1 Pilonidal Cyst Without Abscess 11/05/2011 CAREMN GIBBS MD V25.09 CONTRACEPTIVE COUNSELING - GENERAL [...] EMIL K V74.5 Std Screen 11/05/2011 MADL PROFESSOR OF KINESIOLOGY, ANSON L 685.1 Pilonidal Cyst Without Abscess 11/05/2011 MADL PROFESSOR OF KINESIOLOGY, ANSON L V25.09 CONTRACEPTIVE COUNSELING - GENERAL 11/05/2011 MADL PROFESSOR OF KINESIOLOGY, ANSON L V65.3 COUNSELING - DIETARY 11/05/2011 MADL PROFESSOR OF KINESIOLOGY, ANSON L V65.41 EXERCISE COUNSELING 11/05/2011 JOSE FRANCISCOL PROFESSOR OF KINESIOLOGY, ANSON L V74.5 Std Screen 11/05/2011 CARMEN GIBBS MD 685.1 Pilonidal Cyst Without Abscess 11/05/2011 CARMEN GIBBS MD V25.09 CONTRACEPTIVE COUNSELING - GENERAL 11/05/2011 CARMEN GIBBS MD V65.3 COUNSELING - DIETARY 11/05/2011 CARMEN GIBBS MD V65.41 EXERCISE COUNSELING 11/05/2011 CARMEN GIBBS MD V74.5 Std Screen 11/05/2011 CARMEN IGBBS MD 685.1 Pilonidal Cyst Without Abscess 11/05/2011 CARMNE GIBBS MD V25.09 CONTRACEPTIVE COUNSELING - GENERAL 11/05/2011 CARMEN GIBBS MD V65.3 COUNSELING - DIETARY 11/05/2011 CARMEN GIBBS MD V65.41 EXERCISE COUNSELING 11/05/2011 CARMEN GIBBS MD V74.5 Std Screen 11/05/2011 MADL PROFESSOR OF KINESIOLOGY, ANSON L 685.1 Pilonidal Cyst Without Abscess 11/05/2011 MADL PROFESSOR OF KINESIOLOGY, ANSON L V25.09 CONTRACEPTIVE COUNSELING - GENERAL 11/05/2011 MADL PROFESSOR OF KINESIOLOGY, ANSON L V65.3 COUNSELING - DIETARY 11/05/2011 MADL PROFESSOR OF KINESIOLOGY, ANSON L V65.41 EXERCISE COUNSELING 11/05/2011 MADL PROFESSOR OF KINESIOLOGY, ANSON L V74.5 Std Screen 11/05/2011 ROLON [...] ANSON WADE APRN 008.8 Gastroenteritis, Viral 11/07/2011 AMLACHI TOBIAS APRNINA R 008.8 Gastroenteritis, Viral 11/07/2011 ELLIOT MORENO DDS 008.8 Gastroenteritis, Viral 11/07/2011 CARMEN GIBBS MD 008.8 Gastroenteritis, Viral 11/07/2011 EMIL ROLON DO K 008.8 Gastroenteritis, Viral 11/07/2011 ANSON WADE APRN L 008.8 Gastroenteritis, Viral 11/07/2011 CARMEN GIBBS MD 008.8 Gastroenteritis, Viral 11/07/2011 CARMEN GIBBS MD 008.8 Gastroenteritis, Viral 11/07/2011 ANSNO WADE APRN 008.8 Gastroenteritis, Viral 11/07/2011 GONZALES [...] EMIL K 078.11 Condyloma Acuminatum 01/21/2012 LOBATO PROFESSOR OF KINESIOLOGY, BRENNA R 078.11 Condyloma Acuminatum 01/21/2012 SHERI PROFESSOR OF KINESIOLOGY, ANSON L 078.11 Condyloma Acuminatum 01/21/2012 LUIS [...] LOBATO APRN R 388.70 Otalgia 03/18/2012 MICHELINE PROFESSOR OF KINESIOLOGY, RAQUEL R 388.70 Otalgia 03/18/2012 CARMEN GIBBS MD 388.70 Otalgia 03/18/2012 MADL PROFESSOR OF KINESIOLOGY, ANSON L 388.70 Otalgia 03/18/2012 MADL PROFESSOR OF KINESIOLOGY, ANSON L 388.70 Otalgia 03/18/2012 MICHELINE BAUMANN, RAQUEL R 388.70 Otalgia 03/18/2012 ELLIOT MORENO DDS 388.70 Otalgia 03/18/2012 CARMEN GIBBS MD 388.70 Otalgia 03/18/2012 EMIL ROLON DO 388.70 Otalgia 03/18/2012 MADBenji PROFESSOR OF KINESIOLOGY, ANSON L 388.70 Otalgia 03/18/2012 CARMEN GIBBS MD 388.70 Otalgia 03/18/2012 CARMEN GIBBS MD 388.70 Otalgia 03/18/2012 MADBenji PROFESSOR OF KINESIOLOGY, ANSON L 388.70 Otalgia 03/18/2012 EMIL ROLON [...] In Joint Involving Ankle And Foot 03/20/2012 CARMNE GIBBS MD 719.47 Pain In Joint Involving [...] ABDOMINAL PAIN RIGHT UPPER QUADRANT 04/02/2012 SHERI BAUAMNN ANSON L 789.01 ABDOMINAL PAIN RIGHT UPPER [...] MD 278.01 OBESITY, MORBID (BMI >40) 04/10/2012 OSAMN ALVAREZ APRN 278.01 OBESITY, MORBID (BMI >40) [...] Benign Neoplasm Of Skin Site Unspecified 05/05/2012 CAREMN GIBBS MD 216.9 Benign Neoplasm Of Skin [...] Benign Neoplasm Of Skin Site Unspecified 05/05/2012 ANOSN WADE APRN L 216.9 Benign Neoplasm Of [...] Neoplasm Of Skin Site Unspecified 05/05/2012 MADL PROFESSOR OF KINESIOLOGY, ANSON L 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 05/05/2012 MADL PROFESSOR OF KINESIOLOGY, ANSON L 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 05/05/2012 MICHELINE PROFESSOR OF KINESIOLOGY, RAQUEL R 216.9 Benign Neoplasm Of Skin [...] Of Uncertain Behavior Of Skin 05/19/2012 MICHELINE PROFESSOR OF KINESIOLOGY, RAQUEL R V58.32 Suture Removal 05/19/2012 CARMEN GIBBS MD N 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 05/19/2012 CARMEN GIBBS MD N V58.32 Suture Removal 05/19/2012 LUIS ALFREDO PROFESSOR OF KINESIOLOGY, BRENNA R 238.2 Neoplasm Of Uncertain Behavior [...] Of Uncertain Behavior Of Skin 05/19/2012 MADL PROFESSOR OF KINESIOLOGY, ANSON L V58.32 Suture Removal 05/19/2012 JOSE [...] BAUMANN, BRENNA R 704.1 HIRSUTISM 07/02/2012 SHERI PROFESSOR OF KINESIOLOGY, ANSON L 704.1 HIRSUTISM 07/02/2012 LUIS ALFREDO [...] GIBBS MD N 786.2 COUGH 07/07/2012 KIM PROFESSOR OF KINESIOLOGY, OSMAN T 786.2 COUGH 07/07/2012 ROLON DO, EMIL K 786.2 COUGH 07/07/2012 ROLON DO, EMIL K 786.2 COUGH 07/07/2012 ROLON DO, EMIL K 786.2 COUGH 07/07/2012 KIM PROFESSOR OF KINESIOLOGY, OSMAN T 786.2 COUGH 07/07/2012 ROLON DO, EMIL K 786.2 COUGH 07/07/2012 ROLON DO, EMIL K 786.2 COUGH 07/07/2012 LUIS ALFREDO BAUMANN, BRENNA R 786.2 COUGH 07/07/2012 SHERI PROFESSOR OF KINESIOLOGY, ANSON L 786.2 COUGH 07/07/2012 LUIS ALFREDO [...] GIBBS MD N 786.2 COUGH 07/07/2012 SHERI PROFESSOR OF KINESIOLOGY, ANSON L 786.2 COUGH 07/07/2012 SHERI PROFESSOR OF KINESIOLOGY, ANSON L 786.2 COUGH 07/07/2012 MICHELINE BAUMANN, RAQUEL R 786.2 COUGH 07/07/2012 JOSH VILLAVICENCIO, ELLIOT Alston 786.2 COUGH 07/07/2012 CARMEN GIBBS MD N 786.2 COUGH 07/07/2012 SHERI PROFESSOR OF KINESIOLOGY, ANSON L 786.2 COUGH 07/07/2012 CARMEN GIBBS [...] EMIL K 112.1 CANDIDIASIS VAGINAL 08/20/2012 KIM PROFESSOR OF KINESIOLOGY, OSMAN T 054.9 HERPES SIMPLEX WITHOUT COMPLICATION [...] HERPES SIMPLEX WITHOUT COMPLICATION 08/20/2012 LUIS ALFREDO PROFESSOR OF KINESIOLOGY, BRENNA R 112.1 CANDIDIASIS VAGINAL 08/20/2012 SHERI PROFESSOR OF KINESIOLOGY, ANSON L 054.9 HERPES SIMPLEX WITHOUT COMPLICATION 08/20/2012 SHERI PROFESSOR OF KINESIOLOGY, ANSON L 112.1 CANDIDIASIS VAGINAL 08/20/2012 LUIS [...] 054.9 HERPES SIMPLEX WITHOUT COMPLICATION 08/20/2012 MAD PROFESSOR OF KINESIOLOGY, ANSON L 112.1 CANDIDIASIS VAGINAL 08/20/2012 [facility] PROFESSOR OF KINESIOLOGY, ANSON L 054.9 HERPES SIMPLEX WITHOUT COMPLICATION 08/20/2012 MAD PROFESSOR OF KINESIOLOGY, ANSON L 112.1 CANDIDIASIS VAGINAL 08/20/2012 MICHELINE PROFESSOR OF KINESIOLOGY, RAQUEL R 054.9 HERPES SIMPLEX WITHOUT COMPLICATION 08/20/2012 MICHELINE PROFESSOR OF KINESIOLOGY, RAQUEL R 112.1 CANDIDIASIS VAGINAL 08/20/2012 WHITE DDS, ELLIOT J 054.9 HERPES SIMPLEX WITHOUT COMPLICATION 08/20/2012 WHITE DDS, ELLIOT J 112.1 CANDIDIASIS VAGINAL 08/20/2012 CARMEN GIBBS MD N 054.9 HERPES SIMPLEX WITHOUT COMPLICATION 08/20/2012 CARMEN GIBBS MD N 112.1 CANDIDIASIS VAGINAL 08/20/2012 [facility] PROFESSOR OF KINESIOLOGY, ANSON L 054.9 HERPES SIMPLEX WITHOUT COMPLICATION 08/20/2012 [facility] PROFESSOR OF KINESIOLOGY, ANSON L 112.1 CANDIDIASIS VAGINAL 08/20/2012 CARMEN GIBBS MD N 054.9 HERPES SIMPLEX WITHOUT COMPLICATION 08/20/2012 CARMEN GIBBS MD N 112.1 CANDIDIASIS VAGINAL 08/20/2012 CARMEN GIBBS MD N 054.9 HERPES SIMPLEX WITHOUT COMPLICATION 08/20/2012 CARMEN GIBBS MD N 112.1 CANDIDIASIS VAGINAL 08/20/2012 [facility] PROFESSOR OF KINESIOLOGY, ANSON L 054.9 HERPES SIMPLEX WITHOUT COMPLICATION 08/20/2012 [facility] PROFESSOR OF KINESIOLOGY, ANSON L 112.1 CANDIDIASIS VAGINAL 08/20/2012 EMIL [...] 682.6 CELLULITIS OF LEG 05/11/2013 GEORGES FINN PROFESSOR OF KINESIOLOGY Ot 782.1 NONSPECIF SKIN ERUPT NEC 05/12/2013 [...] GIBBS MD 307.81 TENSION HEADACHE 05/27/2013 MADL PROFESSOR OF KINESIOLOGY, ANSON L 307.81 TENSION HEADACHE 05/27/2013 MADL PROFESSOR OF KINESIOLOGY, ANSON L 307.81 TENSION HEADACHE 05/27/2013 MICHELINE PROFESSOR OF KINESIOLOGY, RAQUEL R 307.81 TENSION HEADACHE 05/27/2013 JOSH VILLAVICENCIO, ELLIOT Alston 307.81 TENSION HEADACHE 05/27/2013 CARMEN GIBBS MD 307.81 TENSION HEADACHE 05/27/2013 MADL PROFESSOR OF KINESIOLOGY, ANSON L 307.81 TENSION HEADACHE 05/27/2013 CARMEN GIBBS MD 307.81 TENSION HEADACHE 05/27/2013 CARMEN GIBBS MD 307.81 TENSION HEADACHE 05/27/2013 MADL PROFESSOR OF KINESIOLOGY, ANSON L 307.81 TENSION HEADACHE 05/27/2013 SUDHIR [...] AND ABSCESS OF UNSPECIFIED SITES 05/29/2013 LOBATO PROFESSOR OF KINESIOLOGY, BRENNA R 682.9 CELLULITIS AND ABSCESS OF UNSPECIFIED SITES 05/29/2013 MADL PROFESSOR OF KINESIOLOGY, ANSON L 682.9 CELLULITIS AND ABSCESS OF UNSPECIFIED SITES 05/29/2013 LOBATO PROFESSOR OF KINESIOLOGY, BRENNA R 682.9 CELLULITIS AND ABSCESS OF UNSPECIFIED SITES 05/29/2013 CARMEN GIBBS MD 682.9 CELLULITIS AND ABSCESS OF UNSPECIFIED SITES 05/29/2013 ROLON DO, EMIL K 682.9 CELLULITIS AND ABSCESS OF UNSPECIFIED SITES 05/29/2013 MICHELINE PROFESSOR OF KINESIOLOGY, RAQUEL R 682.9 CELLULITIS AND ABSCESS OF UNSPECIFIED SITES 05/29/2013 CARMEN GIBBS MD 682.9 CELLULITIS AND ABSCESS OF UNSPECIFIED SITES 05/29/2013 LOBATO PROFESSOR OF KINESIOLOGY, BRENNA R 682.9 CELLULITIS AND ABSCESS OF UNSPECIFIED SITES 05/29/2013 MICHELINE PROFESSOR OF KINESIOLOGY, RAQUEL R 682.9 CELLULITIS AND ABSCESS OF UNSPECIFIED SITES 05/29/2013 CARMEN GIBBS MD N 682.9 CELLULITIS AND ABSCESS OF UNSPECIFIED SITES 05/29/2013 MADL PROFESSOR OF KINESIOLOGY, ANSON L 682.9 CELLULITIS AND ABSCESS OF UNSPECIFIED SITES 05/29/2013 MADL PROFESSOR OF KINESIOLOGY, ANSON L 682.9 CELLULITIS AND ABSCESS OF UNSPECIFIED SITES 05/29/2013 MICHELINE PROFESSOR OF KINESIOLOGY, RAQUEL R 682.9 CELLULITIS AND ABSCESS OF UNSPECIFIED SITES 05/29/2013 JOSH JETERS, ELLIOT Alston 682.9 CELLULITIS AND ABSCESS OF UNSPECIFIED SITES 05/29/2013 CARMEN GIBBS MD N 682.9 CELLULITIS AND ABSCESS OF UNSPECIFIED SITES 05/29/2013 MADL PROFESSOR OF KINESIOLOGY, ANSON L 682.9 CELLULITIS AND ABSCESS OF UNSPECIFIED SITES 05/29/2013 CARMEN GIBBS MD N 682.9 CELLULITIS AND ABSCESS OF UNSPECIFIED SITES 05/29/2013 CARMEN GIBBS MD N 682.9 CELLULITIS AND ABSCESS OF UNSPECIFIED SITES 05/29/2013 MADL PROFESSOR OF KINESIOLOGY, ANSON L 682.9 CELLULITIS AND ABSCESS OF [...] WOUND DRAIN CHANGE/REMOVAL AFTER SURGERY 05/30/2013 MADL PROFESSOR OF KINESIOLOGY, ANSON L V58.49 WOUND DRAIN CHANGE/REMOVAL AFTER SURGERY 05/30/2013 MICHELINE PROFESSOR OF KINESIOLOGY, RAQUEL R V58.49 WOUND DRAIN CHANGE/REMOVAL AFTER SURGERY 05/30/2013 JOSH JETERS, ELLIOT J V58.49 WOUND DRAIN CHANGE/REMOVAL AFTER SURGERY 05/30/2013 CARMEN GIBBS MD V58.49 WOUND DRAIN CHANGE/REMOVAL AFTER SURGERY 05/30/2013 SHERI PROFESSOR OF KINESIOLOGY, ANSON L V58.49 WOUND DRAIN CHANGE/REMOVAL AFTER SURGERY 05/30/2013 CARMEN GIBBS MD V58.49 WOUND DRAIN CHANGE/REMOVAL AFTER SURGERY 05/30/2013 CARMEN GIBBS MD V58.49 WOUND DRAIN CHANGE/REMOVAL AFTER SURGERY 05/30/2013 SHERI PROFESSOR OF KINESIOLOGY, ANSON L V58.49 WOUND DRAIN CHANGE/REMOVAL AFTER [...] (EXCEPT THIGH) AND ANKLE WITHOUT COMPLICATION 06/05/2013 KMI PROFESSOR OF KINESIOLOGY OSMAN T 891.0 OPEN WOUND OF KNEE LEG (EXCEPT THIGH) AND ANKLE WITHOUT COMPLICATION 06/05/2013 ROLON DO, EMIL K 891.0 OPEN WOUND OF KNEE LEG (EXCEPT THIGH) AND ANKLE WITHOUT COMPLICATION 06/05/2013 ROLON DO, EMIL K 891.0 OPEN WOUND OF KNEE LEG (EXCEPT THIGH) AND ANKLE WITHOUT COMPLICATION 06/05/2013 LOBATO PROFESSOR OF KINESIOLOGY, BRENNA R 891.0 OPEN WOUND OF KNEE LEG (EXCEPT THIGH) AND ANKLE WITHOUT COMPLICATION 06/05/2013 MADL PROFESSOR OF KINESIOLOGY, ANSON L 891.0 OPEN WOUND OF KNEE LEG (EXCEPT THIGH) AND ANKLE WITHOUT COMPLICATION 06/05/2013 LUIS ALFREDO PROFESSOR OF KINESIOLOGY, BRENNA R 891.0 OPEN WOUND OF KNEE LEG (EXCEPT THIGH) AND ANKLE WITHOUT COMPLICATION 06/05/2013 CARMEN GIBBS MD N 891.0 OPEN WOUND OF KNEE LEG (EXCEPT THIGH) AND ANKLE WITHOUT COMPLICATION 06/05/2013 EMIL ROLON DO K 891.0 OPEN WOUND OF KNEE LEG (EXCEPT THIGH) AND ANKLE WITHOUT COMPLICATION 06/05/2013 MICHELINE PROFESSOR OF KINESIOLOGY, RAQUEL R 891.0 OPEN WOUND OF KNEE LEG (EXCEPT THIGH) AND ANKLE WITHOUT COMPLICATION 06/05/2013 CARMEN GIBBS MD N 891.0 OPEN WOUND OF KNEE LEG (EXCEPT THIGH) AND ANKLE WITHOUT COMPLICATION 06/05/2013 LUIS ALFREDO YUN, BRENNA R 891.0 OPEN WOUND OF KNEE LEG (EXCEPT THIGH) AND ANKLE WITHOUT COMPLICATION 06/05/2013 MICHELINE PROFESSOR OF KINESIOLOGY, RAQUEL R 891.0 OPEN WOUND OF KNEE LEG (EXCEPT THIGH) AND ANKLE WITHOUT COMPLICATION 06/05/2013 CARMEN GIBBS MD N 891.0 OPEN WOUND OF KNEE LEG (EXCEPT THIGH) AND ANKLE WITHOUT COMPLICATION 06/05/2013 MADL PROFESSOR OF KINESIOLOGY, ANSON L 891.0 OPEN WOUND OF KNEE LEG (EXCEPT THIGH) AND ANKLE WITHOUT COMPLICATION 06/05/2013 MADL PROFESSOR OF KINESIOLOGY, ANSON L 891.0 OPEN WOUND OF KNEE LEG (EXCEPT THIGH) AND ANKLE WITHOUT COMPLICATION 06/05/2013 MICHELINE PROFESSOR OF KINESIOLOGY, RAQUEL R 891.0 OPEN WOUND OF KNEE [...] 493.92 ASTHMA WITH ACUTE EXACERBATION 09/03/2013 LOBATO PROFESSOR OF KINESIOLOGY, BRENNA R 493.92 ASTHMA WITH ACUTE EXACERBATION 09/03/2013 SHERI PROFESSOR OF KINESIOLOGY, ANSON L 493.92 ASTHMA WITH ACUTE EXACERBATION [...] 465.9 UPPER RESPIRATORY INFECTION 09/12/2013 LUIS ALFREDO PROFESSOR OF KINESIOLOGY, BRENNA R 465.9 UPPER RESPIRATORY INFECTION 09/12/2013 MADL PROFESSOR OF KINESIOLOGY, ANSON L 465.9 UPPER RESPIRATORY INFECTION 09/12/2013 [...] N 465.9 UPPER RESPIRATORY INFECTION 09/12/2013 SHERI PROFESSOR OF KINESIOLOGY, ANSON L 465.9 UPPER RESPIRATORY INFECTION 09/12/2013 MADL PROFESSOR OF KINESIOLOGY, ANSON L 465.9 UPPER RESPIRATORY INFECTION 09/12/2013 [...] MEDIA ACUTE MUCOID LEFT EAR 09/16/2013 EMERY LOBTAO APRNRICIA R 381.02 OTITIS MEDIA ACUTE MUCOID LEFT EAR 09/16/2013 JOSE FRANCISCOL PROFESSOR OF KINESIOLOGY, ANSON L 381.02 OTITIS MEDIA ACUTE MUCOID [...] ASSOCIATED WITH FEMALE GENITAL ORGANS 09/21/2013 MADL PROFESSOR OF KINESIOLOGY, ANSON L 625.8 OTHER SPECIFIED SYMPTOMS ASSOCIATED [...] PAIN IN JOINT INVOLVING SHOULDER REGION 03/30/2014 ELILOT MORENO DDS 719.41 PAIN IN JOINT INVOLVING SHOULDER REGION 03/30/2014 CARMEN GIBBS MD N 719.41 PAIN IN JOINT INVOLVING SHOULDER REGION 03/30/2014 MADL PROFESSOR OF KINESIOLOGY, ANSON L 719.41 PAIN IN JOINT INVOLVING SHOULDER REGION 03/30/2014 CARMEN GIBBS MD N 719.41 PAIN IN JOINT INVOLVING SHOULDER REGION 03/30/2014 CARMEN GIBBS MD 719.41 PAIN IN JOINT INVOLVING SHOULDER REGION 03/30/2014 MADL PROFESSOR OF KINESIOLOGY, ANSON L 719.41 PAIN IN JOINT INVOLVING SHOULDER REGION 03/30/2014 EMIL ROLON DO 719.41 PAIN IN JOINT INVOLVING SHOULDER REGION 04/27/2014 ACRMEN GIBBS MD N 704.00 ALOPECIA UNSPECIFIED 04/27/2014 MADL PROFESSOR OF KINESIOLOGY, ANSON L 704.00 ALOPECIA UNSPECIFIED 04/27/2014 MADL PROFESSOR OF KINESIOLOGY, ANSON L 704.00 ALOPECIA UNSPECIFIED 04/27/2014 MICHELINE BAUMANN, RAQUEL R 704.00 ALOPECIA UNSPECIFIED 04/27/2014 ELLIOT MORENO DDS J 704.00 ALOPECIA UNSPECIFIED 04/27/2014 CARMEN GIBBS MD N 704.00 ALOPECIA UNSPECIFIED 04/27/2014 MADL PROFESSOR OF KINESIOLOGY, ANSON L 704.00 ALOPECIA UNSPECIFIED 04/27/2014 CARMEN GIBBS MD N 704.00 ALOPECIA UNSPECIFIED 04/27/2014 CARMEN GIBBS MD N 704.00 ALOPECIA UNSPECIFIED 04/27/2014 MADL PROFESSOR OF KINESIOLOGY, ANSON L 704.00 ALOPECIA UNSPECIFIED 04/27/2014 EMIL ROLON DO K 704.00 ALOPECIA UNSPECIFIED 05/10/2014 MADL PROFESSOR OF KINESIOLOGY, ANSON L 786.52 PAINFUL RESPIRATION 05/10/2014 MADL PROFESSOR OF KINESIOLOGY, ANSON L 786.52 PAINFUL RESPIRATION 05/10/2014 MICHELINE BAUMANN, RAQUEL R 786.52 PAINFUL RESPIRATION 05/10/2014 ELLIOT MORENO DDS J 786.52 PAINFUL RESPIRATION 05/10/2014 CARMEN GIBBS MD N 786.52 PAINFUL RESPIRATION 05/10/2014 MADL PROFESSOR OF KINESIOLOGY, ANSON L 786.52 PAINFUL RESPIRATION 05/10/2014 CARMEN GIBBS MD N 786.52 PAINFUL RESPIRATION 05/10/2014 CARMEN GIBBS MD N 786.52 PAINFUL RESPIRATION 05/10/2014 MADANSON Leblanc APRN L 786.52 PAINFUL RESPIRATION 05/10/2014 EMIL ROLON DO 786.52 PAINFUL RESPIRATION 05/25/2014 MICHELINE PROFESSOR OF KINESIOLOGY, RAQUEL R 461.9 SINUSITIS ACUTE 05/25/2014 MICHELINE PROFESSOR OF KINESIOLOGY, RAQUEL R 709.9 UNSPECIFIED DISORDER OF SKIN AND SUBCUTANEOUS TISSUE 05/25/2014 MICHELINE PROFESSOR OF KINESIOLOGY, RAQUEL R 784.0 HEADACHE 05/25/2014 WHITE DDS, [...] TOMAS MD Ot V74.8 05/28/2014 LAZARO HURTADO CHARGE HISTOTECHNOLOGIST Ot 278.01 05/28/2014 LAZARO HURTADO CHARGE HISTOTECHNOLOGIST Ot 401.9 05/28/2014 LAZARO HURTADO CHARGE HISTOTECHNOLOGIST Ot 786.09 05/28/2014 LAZARO HURTADO CHARGE HISTOTECHNOLOGIST Ot V85.42 05/31/2014 JOSH DDS, ELLIOT J [...] 381.81 DYSFUNCTION OF EUSTACHIAN TUBE 08/09/2014 SHERI PROFESSOR OF KINESIOLOGYANSON Christie L 381.81 DYSFUNCTION OF EUSTACHIAN TUBE 08/09/2014 ROLON SUDHIR GAMINGA K 381.81 DYSFUNCTION OF EUSTACHIAN TUBE 08/17/2014 CARMEN GIBBS MD N 782.0 DISTURBANCE OF SKIN SENSATION 08/17/2014 CARMEN GIBBS MD N 790.29 ABNORMAL GLUCOSE 08/17/2014 MADL PROFESSOR OF KINESIOLOGYLETICIA ChristieA L 782.0 DISTURBANCE OF SKIN SENSATION 08/17/2014 MADL PROFESSOR OF KINESIOLOGYLETICIA ChristieA L 790.29 ABNORMAL GLUCOSE 08/17/2014 ROLON DO EMIL K 782.0 DISTURBANCE OF SKIN SENSATION 08/17/2014 ROLON DO EMIL K 790.29 ABNORMAL GLUCOSE 08/28/2014 CARMEN GIBBS MD N 698.9 PRURITUS NOS 08/28/2014 MADBenji PROFESSOR OF KINESIOLOGY, ANSON L 698.9 PRURITUS NOS 08/28/2014 ROLON [...] TOMAS MD Ot V74.8 06/02/2015 LAZARO HURTADO CHARGE HISTOTECHNOLOGIST Ot 278.01 06/02/2015 LAZARO HURTADO CHARGE HISTOTECHNOLOGIST Ot 401.9 06/02/2015 LAZARO HURTADO CHARGE HISTOTECHNOLOGIST Ot 786.09 06/02/2015 LAZARO HURTADO CHARGE HISTOTECHNOLOGIST Ot V85.42 06/02/2015 DEE BAH MD Ot 723.0 06/02/2015 DEE BAH MD Ot 724.02 06/02/2015 ROCHELLE CANNON MD Ot M77.8 06/08/2015 ROCHELLE CANNON MD Ot M22.41 CHONDROMALACIA PATELLAE, RIGHT KNEE 06/08/2015 ROCHELLE CANNON MD Ot M23.221 DERANG OF [place] OF MEDIAL MENSC D/T 06/08/2015 ROCHELLE CANNON MD Ot 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 06/08/2015 ROCHELLE CANNON MD [...] TOMAS MD Ot V74.8 06/14/2015 LAZARO HURTADO CHARGE HISTOTECHNOLOGIST Ot 278.01 06/14/2015 LAZARO HURTADO CHARGE HISTOTECHNOLOGIST Ot 401.9 06/14/2015 LAZARO HURTADO CHARGE HISTOTECHNOLOGIST Ot 786.09 06/14/2015 LAZARO HURTADO CHARGE HISTOTECHNOLOGIST Ot V85.42 06/14/2015 [place], DEE Alston [...] TOMAS MDNY L Ot V72.63 08/31/2015 ED TOAMS MDNY L Ot V74.8 08/31/2015 LAZARO HURTADO CHARGE HISTOTECHNOLOGIST Ot 278.01 08/31/2015 LAZARO HURTADO CHARGE HISTOTECHNOLOGIST Ot 401.9 08/31/2015 LAZARO HURTADO CHARGE HISTOTECHNOLOGIST Ot 786.09 08/31/2015 LAZARO HURTADO CHARGE HISTOTECHNOLOGIST Ot V85.42 08/31/2015 DEE BAH MD Ot [...] MASS INDEX 40.0-44.9, ADULT 12/21/2015 RONY ALDANA PROFESSOR OF KINESIOLOGY Ot 571.8 CHRONIC LIVER DIS NEC 12/21/2015 TATA TOMAS MD Ot 724.70 DISORDER OF COCCYX NOS 12/21/2015 TATA TOMAS MD Ot V72.63 PRE-PROCEDURAL LABORATORY EXAMINATION 12/21/2015 TATA TOMAS MD Ot V74.8 SCREEN-BACTERIAL DIS NEC 12/21/2015 LAZARO HURTADO CHARGE HISTOTECHNOLOGIST Ot 278.01 MORBID OBESITY 12/21/2015 LAZARO HURTADO CHARGE HISTOTECHNOLOGIST Ot 401.9 HYPERTENSION NOS 12/21/2015 LAZARO HURTADO CHARGE HISTOTECHNOLOGIST Ot 786.09 RESPIRATORY ABNORM NEC 12/21/2015 LAZARO HURTADO CHARGE HISTOTECHNOLOGIST Ot V85.42 BODY MASS INDEX 45.0-49.9, ADULT [...] CELLULITIS OF RIGHT LOWER LIMB 12/21/2015 ROCHELLE CANNNO MD Ot S83.241S OTH TEAR OF MEDIAL [...] [place], ROCHELLE Salgado Ot 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 05/31/2016 ROCHELLE CANNON MD Ot M22.41 CHONDROMALACIA PATELLAE, RIGHT KNEE 05/31/2016 ROCHELLE CANNON MD Ot M23.203 DERANG OF UNSP MEDIAL MENISCUS DUE TO OL 05/31/2016 [place], ROCHELLE Salgado Ot Z79.899 OTHER ASSISTED (CURRENT) DRUG THERAPY 06/14/2016 ROCHELLE CANNON MD Ot M22.41 CHONDROMALACIA PATELLAE, RIGHT KNEE 06/14/2016 ROCHELLE CANNON MD Ot M23.203 DERANG OF UNSP MEDIAL MENISCUS DUE TO OL 06/14/2016 ROCHELLE CANNON MD Ot 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 06/17/2016 GEORGES FINN APRN [...] MASS INDEX 40.0-44.9, ADULT 06/24/2016 RONY ALDANA PROFESSOR OF KINESIOLOGY Ot 571.8 CHRONIC LIVER DIS NEC 06/24/2016 TATA TOMAS MD Ot 724.70 DISORDER OF COCCYX NOS 06/24/2016 TATA TOMAS MD, Ot V72.63 PRE-PROCEDURAL LABORATORY EXAMINATION 06/24/2016 TATA TOMAS MD, Ot V74.8 SCREEN-BACTERIAL DIS NEC 06/24/2016 LAZARO HURTADO CHARGE HISTOTECHNOLOGIST Ot 278.01 MORBID OBESITY 06/24/2016 LAZARO HURTADO CHARGE HISTOTECHNOLOGIST Ot 401.9 HYPERTENSION NOS 06/24/2016 LAZARO HURTADO CHARGE HISTOTECHNOLOGIST Ot 786.09 RESPIRATORY ABNORM NEC 06/24/2016 LAZARO [...] SCREEN-BACTERIAL DIS NEC 08/05/2016 LAZARO HURTADO L CHARGE HISTOTECHNOLOGIST Ot 278.01 MORBID OBESITY 08/05/2016 BAILAZARO HAHN L CHARGE HISTOTECHNOLOGIST Ot 401.9 HYPERTENSION NOS 08/05/2016 BAIMA LAZARO L CHARGE HISTOTECHNOLOGIST Ot 786.09 RESPIRATORY ABNORM NEC 08/05/2016 LAZARO HURTADO CHARGE HISTOTECHNOLOGIST Ot V85.42 BODY MASS INDEX 45.0-49.9, ADULT [...] MASS AND LUMP, NECK 10/11/2016 DAVID, GEOVANI CHARGE HISTOTECHNOLOGIST Ot R05 COUGH 10/11/2016 DAVID, GEOVANI CHARGE HISTOTECHNOLOGIST Ot R10.12 LEFT UPPER QUADRANT PAIN 10/11/2016 DAVID, GEOVANI CHARGE HISTOTECHNOLOGIST Ot Z87.19 PERSONAL HISTORY OF OTHER DISEASES OF 10/12/2016 DAVID, GEOVANI CHARGE HISTOTECHNOLOGIST Ot R05 COUGH 10/12/2016 DAVID, GEOVANI CHARGE HISTOTECHNOLOGIST Ot R10.12 LEFT UPPER QUADRANT PAIN 10/12/2016 DAVID, GEOVANI CHARGE HISTOTECHNOLOGIST Ot Z87.19 PERSONAL HISTORY OF OTHER DISEASES [...] MASS INDEX 40.0-44.9, ADULT 10/26/2016 RONY ALDANA PROFESSOR OF KINESIOLOGY Ot 571.8 CHRONIC LIVER DIS NEC 10/26/2016 TATA TOMAS MD Ot 724.70 DISORDER OF COCCYX NOS 10/26/2016 TATA TOMAS MD Ot V72.63 PRE-PROCEDURAL LABORATORY EXAMINATION 10/26/2016 TATA TOMAS MD Ot V74.8 SCREEN-BACTERIAL DIS NEC 10/26/2016 LAZARO HURTADO CHARGE HISTOTECHNOLOGIST Ot 278.01 MORBID OBESITY 10/26/2016 LAZARO HURTADO CHARGE HISTOTECHNOLOGIST Ot 401.9 HYPERTENSION NOS 10/26/2016 LAZARO HURTADO CHARGE HISTOTECHNOLOGIST Ot 786.09 RESPIRATORY ABNORM NEC 10/26/2016 LAZARO HURTADO CHARGE HISTOTECHNOLOGIST Ot V85.42 BODY MASS INDEX 45.0-49.9, ADULT [...] Z86.010 PERSONAL HISTORY OF COLONIC POLYPS 02/21/2017 MAKALYA HAWKINS MD Ot Z86.19 PERSONAL HISTORY OF [...] 03/14/2017 YUKI MARCH MD Ot Z79.899 OTHER ASSISTED (CURRENT) DRUG THERAPY 03/15/2017 YUKI MARCH MD Ot F41.9 ANXIETY DISORDER, UNSPECIFIED 03/15/2017 YUKI MARCH MD Ot G43.909 MIGRAINE, UNSP, NOT INTRACTABLE, WITHOUT 03/15/2017 YUKI MARCH MD Ot N28.89 OTHER SPECIFIED DISORDERS OF KIDNEY AND 03/15/2017 YUKI MARCH MD Ot R10.10 UPPER ABDOMINAL PAIN, UNSPECIFIED 03/15/2017 YUKI MARCH MD Ot R10.13 EPIGASTRIC PAIN 03/15/2017 YUKI MARCH MD Ot 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 03/18/2017 YUKI MARCH MD Ot F41.9 ANXIETY DISORDER, UNSPECIFIED 03/18/2017 YUKI MARCH MD Ot G43.909 MIGRAINE, UNSP, NOT INTRACTABLE, WITHOUT 03/18/2017 YUKI MARCH MD Ot N28.89 OTHER SPECIFIED DISORDERS OF KIDNEY AND 03/18/2017 YUKI MARCH MD Ot R10.10 UPPER ABDOMINAL PAIN, UNSPECIFIED 03/18/2017 YUKI MARCH MD Ot R10.13 EPIGASTRIC PAIN 03/18/2017 YUKI MARCH MD Ot 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 03/20/2017 YUKI MARCH MD Ot F41.9 ANXIETY DISORDER, UNSPECIFIED 03/20/2017 YUKI MARCH MD Ot G43.909 MIGRAINE, UNSP, NOT INTRACTABLE, WITHOUT 03/20/2017 YUKI MARCH MD Ot N28.89 OTHER SPECIFIED DISORDERS OF KIDNEY AND 03/20/2017 YUKI MARCH MD Ot R10.10 UPPER ABDOMINAL PAIN, UNSPECIFIED 03/20/2017 YUKI MARCH MD Ot R10.13 EPIGASTRIC PAIN 03/20/2017 YUKI MARCH MD Ot 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 04/13/2017 GEORGES FINN APRN [...] Z90.89 ACQUIRED ABSENCE OF OTHER ORGANS 04/18/2017 KAIRA MORRISON Ot F32.9 MAJOR DEPRESSIVE DISORDER, SINGLE [...] V74.8 SCREEN-BACTERIAL DIS NEC 05/30/2017 LAZARO HURTADO CHARGE HISTOTECHNOLOGIST Ot 278.01 MORBID OBESITY 05/30/2017 BRYANTLAZARO Benji CHARGE HISTOTECHNOLOGIST Ot 401.9 HYPERTENSION NOS 05/30/2017 BRYANTLAZARO Benji CHARGE HISTOTECHNOLOGIST Ot 786.09 RESPIRATORY ABNORM NEC 05/30/2017 LAZARO HURTADO CHARGE HISTOTECHNOLOGIST Ot V85.42 BODY MASS INDEX 45.0-49.9, ADULT [...] Ot Z86.010 PERSONAL HISTORY OF COLONIC POLYPS 06/28/2017 YUNIOR LYLES MD Ot Z01.818 ENCOUNTER FOR OTHER PREPROCEDURAL EXAMIN 06/28/2017 YUNIOR LYLES MD Ot Z12.11 ENCOUNTER FOR SCREENING FOR MALIGNANT NE 06/28/2017 YUNIOR LYLES MD Ot Z86.010 PERSONAL HISTORY OF COLONIC POLYPS 06/29/2017 YUKI MARCH MD Ot F32.9 MAJOR DEPRESSIVE DISORDER, SINGLE EPISOD 06/29/2017 YUKI MARCH MD, Ot F41.9 ANXIETY DISORDER, UNSPECIFIED 06/29/2017 YUKI MARCH MD Ot G43.909 MIGRAINE, UNSP, NOT INTRACTABLE, WITHOUT 06/29/2017 YUKI MARCH MD Ot J06.9 ACUTE UPPER RESPIRATORY INFECTION, UNSPE 06/29/2017 YUKI MARCH MD, Ot J45.909 UNSPECIFIED ASTHMA, UNCOMPLICATED 06/29/2017 YUKI MARCH MD Ot R10.10 UPPER ABDOMINAL PAIN, UNSPECIFIED 06/29/2017 YUKI MARCH MD Ot R10.13 EPIGASTRIC PAIN 06/29/2017 YUKI MARCH MD, Ot Z85.528 PERSONAL HISTORY OF OTHER MALIGNANT NEOP 06/29/2017 YUKI MARCH MD Ot Z87.19 PERSONAL HISTORY OF OTHER DISEASES OF TH 06/29/2017 YUKI MARCH MD Ot Z90.5 ACQUIRED ABSENCE OF KIDNEY 06/29/2017 YUKI MARCH MD Ot Z90.710 ACQUIRED ABSENCE OF BOTH CERVIX AND UTER 06/29/2017 YUKI MARCH MD Ot Z90.89 ACQUIRED ABSENCE OF OTHER ORGANS 07/03/2017 YUNIOR LYLES MD, Ot F32.9 MAJOR DEPRESSIVE DISORDER, SINGLE EPISOD 07/03/2017 YUNIOR LYLES MD, Ot F41.9 ANXIETY DISORDER, UNSPECIFIED 07/03/2017 YUNIOR LYLES MD Ot G47.61 PERIODIC LIMB MOVEMENT DISORDER 07/03/2017 YUNIOR LYLES MD Ot K64.1 SECOND DEGREE HEMORRHOIDS 07/03/2017 YUNIOR LYLES MD, Ot Z79.899 OTHER ASSISTED (CURRENT) DRUG THERAPY 07/03/2017 YUNIOR LYLES MD, Ot Z85.528 PERSONAL HISTORY OF OTHER MALIGNANT NEOP 07/03/2017 YUNIOR LYLES MD, Ot Z86.010 PERSONAL HISTORY OF COLONIC POLYPS 07/03/2017 YUNIOR LYLES MD, Ot Z88.5 ALLERGY STATUS TO NARCOTIC AGENT STATUS 07/03/2017 YUNIOR LYLES MD, Ot Z90.5 ACQUIRED ABSENCE OF KIDNEY 07/04/2017 YUNIOR LYLES MD, Ot F32.9 MAJOR DEPRESSIVE DISORDER, SINGLE EPISOD 07/04/2017 YUNIOR LYLES MD Ot F41.9 ANXIETY DISORDER, UNSPECIFIED 07/04/2017 YUNIOR LYLES MD Ot G47.61 PERIODIC LIMB MOVEMENT DISORDER 07/04/2017 YUNIOR LYLES MD Ot K64.1 SECOND DEGREE HEMORRHOIDS 07/04/2017 YUNIOR LYLES MD Ot Z79.899 OTHER ASSISTED (CURRENT) DRUG THERAPY 07/04/2017 YUNIOR LYLES MD [...] 07/09/2017 YUNIOR LYLES MD Ot Z79.899 OTHER ASSISTED (CURRENT) DRUG THERAPY 07/09/2017 YUNIOR LYLES MD [...] DIS AND OTH DI 07/23/2017 YUKI MARCH MD Ot Z85.828 PERSONAL HISTORY OF OTHER MALIGNANT NEOP 07/23/2017 YUKI MARCH MD Ot Z86.010 PERSONAL HISTORY OF COLONIC POLYPS 07/23/2017 YUKI MARCH MD Ot Z86.19 PERSONAL HISTORY OF OTHER INFECTIOUS AND 07/23/2017 YUKI MARCH MD Ot Z87.19 PERSONAL HISTORY OF OTHER DISEASES OF TH 07/23/2017 YUKI MARCH MD Ot Z87.440 PERSONAL HISTORY OF URINARY (TRACT) INFE 07/23/2017 YUKI MARCH MD Ot Z87.891 PERSONAL HISTORY OF NICOTINE DEPENDENCE 07/23/2017 YUKI MARCH MD Ot Z88.0 ALLERGY STATUS TO PENICILLIN 07/23/2017 YUKI MARCH MD Ot Z88.5 ALLERGY STATUS TO NARCOTIC AGENT STATUS 07/23/2017 YUKI MARCH MD Ot Z90.49 ACQUIRED ABSENCE OF OTHER SPECIFIED PART 07/23/2017 YUKI MARCH MD Ot Z90.5 ACQUIRED ABSENCE OF KIDNEY 07/23/2017 YUKI MARCH MD Ot Z90.710 ACQUIRED ABSENCE [...] OF OTHER MALIGNANT NEOP 07/24/2017 YUKI MARCH MD Ot Z86.010 PERSONAL HISTORY OF COLONIC POLYPS 07/24/2017 YUKI MARCH MD Ot Z86.19 PERSONAL HISTORY OF OTHER INFECTIOUS AND 07/24/2017 YUKI MARCH MD Ot Z87.19 PERSONAL HISTORY OF OTHER DISEASES OF TH 07/24/2017 YUKI MARCH MD Ot Z87.440 PERSONAL HISTORY OF URINARY (TRACT) INFE 07/24/2017 YUKI MARCH MD, Ot Z87.891 PERSONAL HISTORY [...] PERSONAL HISTORY OF OTHER DISEASES OF TH 07/29/2017 MAKAYLA HAWKINS MD Ot Z87.440 PERSONAL [...] Ot Z90.89 ACQUIRED ABSENCE OF OTHER ORGANS 08/12/2017 MAKAYLA HAWKINS MD Ot F32.9 MAJOR DEPRESSIVE DISORDER, SINGLE EPISOD 08/12/2017 MAKAYLA HAWKINS MD Ot F41.9 ANXIETY DISORDER, UNSPECIFIED 08/12/2017 MAKAYLA HAWKINS MD Ot G43.909 MIGRAINE, UNSP, NOT INTRACTABLE, WITHOUT 08/12/2017 MAKAYLA HAWKINS MD Ot J45.909 UNSPECIFIED ASTHMA, UNCOMPLICATED 08/12/2017 MAKAYLA HAWKINS MD Ot K43.9 VENTRAL HERNIA WITHOUT OBSTRUCTION OR GA 08/12/2017 MAKAYLA HAWKINS MD Ot R10.9 UNSPECIFIED ABDOMINAL PAIN 08/12/2017 MAKAYLA HAWKINS MD Ot Z82.49 FAMILY HX OF ISCHEM HEART DIS AND OTH DI 08/12/2017 MAKAYLA HAWKINS MD Ot Z86.010 PERSONAL HISTORY OF COLONIC POLYPS 08/12/2017 MAKAYLA HAWKINS MD Ot Z86.19 PERSONAL HISTORY OF OTHER INFECTIOUS AND 08/12/2017 MAKAYLA HAWKINS MD Ot Z87.19 PERSONAL HISTORY OF OTHER DISEASES OF TH 08/12/2017 MAKAYLA HAWKINS MD Ot Z87.440 PERSONAL HISTORY OF URINARY (TRACT) INFE 08/12/2017 MAKAYLA HAWKINS MD Ot Z88.0 ALLERGY STATUS TO PENICILLIN 08/12/2017 MAKAYLA HAWKINS MD Ot Z88.5 ALLERGY STATUS TO NARCOTIC AGENT STATUS 08/12/2017 MAKAYLA HAWKINS MD Ot Z90.49 ACQUIRED ABSENCE OF OTHER SPECIFIED PART 08/12/2017 MAKAYLA HAWKINS MD Ot Z90.5 ACQUIRED ABSENCE OF KIDNEY 08/12/2017 MAKAYLA HAWKINS MD Ot Z90.710 ACQUIRED ABSENCE OF BOTH CERVIX AND UTER 08/12/2017 MAKALYA HAWKINS MD Ot Z90.89 ACQUIRED ABSENCE OF [...] Ot Z90.89 ACQUIRED ABSENCE OF OTHER ORGANS 08/20/2017 YUNIOR LYLES MD, Ot 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 08/20/2017 YUNIOR LYLES MD Ot Z01.818 ENCOUNTER FOR OTHER PREPROCEDURAL EXAMIN 08/21/2017 YUNIOR LYLES MD, Ot 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 08/21/2017 YUNIOR LYLES MD Ot Z01.818 ENCOUNTER FOR OTHER PREPROCEDURAL EXAMIN 08/22/2017 YUNIOR LYLES MD Ot C64.2 MALIGNANT NEOPLASM OF LEFT KIDNEY, EXCEP 08/22/2017 YUNIOR LYLES MD Ot F32.9 MAJOR DEPRESSIVE DISORDER, SINGLE EPISOD 08/22/2017 YUNIOR LYLES MD, Ot F41.9 ANXIETY DISORDER, UNSPECIFIED 08/22/2017 YUNIOR LYLES MD Ot G25.81 RESTLESS LEGS SYNDROME 08/22/2017 YUNIOR LYLES MD, Ot J45.909 UNSPECIFIED ASTHMA, UNCOMPLICATED 08/22/2017 YUNIOR LYLES MD, Ot 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 08/22/2017 YUNIOR LYLES MD Ot K86.1 OTHER CHRONIC PANCREATITIS 08/22/2017 YUNIOR LYLES MD Ot 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 08/22/2017 YUNIOR LYLES MD Ot Z90.5 ACQUIRED ABSENCE OF KIDNEY 08/22/2017 Ot 620.2 OVARIAN CYST NEC/NOS 08/22/2017 Ot 789.00 ABDOMINAL PAIN, UNSPECIFIED SITE 08/22/2017 Ot V72.63 PRE- PROCEDURAL LABORATORY EXAMINATION 08/22/2017 Ot V74.8 SCREEN- BACTERIAL DIS NEC 08/22/2017 LUIS MORENO MD Ot 278.00 OBESITY, NOS 08/22/2017 LUIS MORENO MD Ot 311 DEPRESSIVE DISORDER NEC 08/22/2017 LUIS MORENO MD Ot 493.00 EXTRINSIC ASTHMA, NOS 08/22/2017 LUIS MORENO MD Ot 724.79 DISORDER OF COCCYX NEC 08/22/2017 LUIS MORENO MD Ot V58.69 OTH MED,LT,CURRENT USE 08/22/2017 LUIS MORENO MD Ot V85.41 BODY MASS INDEX 40.0-44.9, ADULT 08/22/2017 RONY ALDANA APRN Ot 571.8 CHRONIC LIVER DIS NEC 08/22/2017 TATA TOMAS MD Ot 724.70 DISORDER OF COCCYX NOS 08/22/2017 TATA TOMAS MD Ot V72.63 PRE-PROCEDURAL LABORATORY EXAMINATION 08/22/2017 TATA TOMAS MD Ot V74.8 SCREEN-BACTERIAL DIS NEC 08/22/2017 LAZARO HURTADO L CHARGE HISTOTECHNOLOGIST Ot 278.01 MORBID OBESITY 08/22/2017 BRYANT LAZARO L CHARGE HISTOTECHNOLOGIST Ot 401.9 HYPERTENSION NOS 08/22/2017 BRYANT LAZARO L CHARGE HISTOTECHNOLOGIST Ot 786.09 RESPIRATORY ABNORM NEC 08/22/2017 LAZARO HURTADO L CHARGE HISTOTECHNOLOGIST Ot V85.42 BODY MASS INDEX 45.0-49.9, ADULT 08/22/2017 DEE BAH MD Ot 723.0 CERVICAL SPINAL STENOSIS 08/22/2017 DEE BAH MD Ot 724.02 SPINAL STENOSIS, LUMBAR REG, W/OUT NEURO 08/22/2017 DAVIS PARISH, ROCHELLE Salgado Ot M77.8 OTHER ENTHESOPATHIES, NOT ELSEWHERE CLAS 08/22/2017 ROCHELLE CANNON MD, Ot M23.8X1 OTHER INTERNAL DERANGEMENTS OF RIGHT KNE 08/22/2017 ROCHELLE CANNON MD, Ot Z01.818 ENCOUNTER FOR OTHER PREPROCEDURAL EXAMIN 08/22/2017 ROCHELLE CANNON MD, Ot Z11.2 ENCOUNTER FOR SCREENING FOR OTHER BACTER 08/22/2017 CARMEN GIBBS MD, Ot E78.2 MIXED HYPERLIPIDEMIA 08/22/2017 ROCHELLE CANNON MD, Ot S83.241S OTH TEAR OF MEDIAL MENISCUS, CURRENT INJ 08/22/2017 ROCHELLE CANNON MD, Ot X58.XXXS EXPOSURE TO OTHER SPECIFIED FACTORS, SEQ 08/22/2017 ROCHELLE CANNON MD, Ot Y99.8 OTHER EXTERNAL CAUSE STATUS 08/22/2017 ROCHELLE CANNON MD, Ot M79.604 PAIN IN RIGHT LEG 08/22/2017 ROCHELLE CANNON MD, Ot M25.461 EFFUSION, RIGHT KNEE 08/22/2017 ROCHELLE CANNON MD, Ot S83.241A OTH TEAR OF MEDIAL MENISCUS, CURRENT INJ 08/22/2017 CARMEN GIBBS MD Ot R04.2 HEMOPTYSIS 08/22/2017 CARMEN GIBBS MD Ot R22.1 LOCALIZED SWELLING, MASS AND LUMP, NECK 08/22/2017 CARMEN GIBBS MD Ot R22.1 LOCALIZED SWELLING, MASS AND LUMP, NECK 08/23/2017 YUNIOR LYLES MD, Ot C64.2 MALIGNANT NEOPLASM OF LEFT KIDNEY, EXCEP 08/23/2017 YUNIOR LYLES MD Ot F32.9 MAJOR DEPRESSIVE DISORDER, SINGLE EPISOD 08/23/2017 YUNIOR LYLES MD, Ot F41.9 ANXIETY DISORDER, UNSPECIFIED 08/23/2017 YUNIOR LYLES MD, Ot G25.81 RESTLESS LEGS SYNDROME 08/23/2017 YUNIOR LYLES MD, Ot J45.909 UNSPECIFIED ASTHMA, UNCOMPLICATED 08/23/2017 YUNIOR LYLES MD, Ot 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 08/23/2017 YUNIOR LYLES MD, Ot K86.1 OTHER CHRONIC PANCREATITIS 08/23/2017 YUNIOR LYLES MD, Ot Z79.899 OTHER ASSISTED (CURRENT) DRUG THERAPY 08/23/2017 YUNIOR LYLES MD Ot Z90.5 ACQUIRED ABSENCE OF KIDNEY Procedures Code Description Performed By Performed On OtolarRochelle Burton 03/28/2010 91293 PAP SMEAR 08/02/2011 67730 EXCISION BENIGN LESION 1.1- 2 cm (specify location in [facility] descriiption) 05/12/2012 S0630 SUTURE REMOVAL 05/19/2012 27370 SKIN TISSUE PROCEDURE 06/05/2013 79368 US LIVER ULTRASOUND 06/05/2013 13343 OXIMETRY 09/12/2013 21281 OXIMETRY 09/16/2013 51398 THERAPUTIC INJ SQ/IM 09/16/2013 J2930 SOLUMEDROL INJ 09/16/2013 91459 OXIMETRY 09/17/2013 31003 XRAY ELBOW R 2 VIEWS 09/23/2013 05485 CULTURE UROGENITAL 09/24/2013 J2550 PHENERGAN INJECTION UP TO 50 MG 10/28/2013 57860 THERAPUTIC INJ SQ/IM 10/28/2013 42894 LIVER PANEL (LFT) 10/28/2013 66921 LIPASE 10/28/2013 59665 CBC 10/28/2013 93363 ROUTINE VENIPUNCTURE 01/21/2014 08479 UA W/ CULTURE IF INDICATED 01/21/2014 13717 CBC 01/22/2014 7198995 GFR CALC (RESULT ONLY) 01/22/2014 92449 CMP 01/22/2014 31908 CMP 04/27/2014 22165 TSH 04/27/2014 85284 CBC 04/27/2014 55148 ROUTINE VENIPUNCTURE 04/27/2014 22496 ROUTINE VENIPUNCTURE 05/10/2014 21083 XRAY RIBS RIGHT UNILATERAL 2 OR MORE VIEWS 05/10/2014 42669 UA W/ CULTURE IF INDICATED 05/10/2014 05618 CBC 05/10/2014 9457494 GFR CALC (RESULT ONLY) 05/10/2014 85108 CMP 05/10/2014 55932 AMYLASE 05/10/2014 90414 LIPASE 05/10/[address] ABDOMEN & PELVIS W/ & W/ O CONTRAST 05/17/2014 55182 XRAY CERVICAL SPINE, 2 OR 3 VIEWS 09/06/2014 71688 XRAY THORACIC SPINE 2 VIEWS 09/06/2014 96718 XRAY LUMBAR SPINE 2 OR 3 VIEWS [...] identification in genital specimen by aerobe culture [id number] NRG FREE TEXT EXTERNAL 2 PLUS NORMAL [...] - 05/23/16 11:17 URINE CULTURE RESULTS <10,000/ML [facility] Streptococcus pyogenes antigen detection - 06/24/16 10:33 Streptococcus pyogenes antigen detection NEGATIVE NEGATIVE Bacterial throat culture - 06/24/16 10:33 Bacterial throat culture NBS [facility] Complete blood count (CBC) with automated white [...] INFLUENZA A AND B ANTIGENS BY IA NR Complete urinalysis with reflex to culture - 07/22/17 22:30 Urine color determination YELLOW NRG Urine clarity determination SLIGHTLY CLOUDY [facility] Urine pH measurement by test strip 5 [...] count by microscopy (number/high power field) NONE NR Automated urine sediment leukocyte count by microscopy [...] - 08/12/17 17:10 Lipase 41 U/L 8-78 Methicillin resistant Staphylococcus aureus (MRSA) screening culture - 11:00 Methicillin resistant Staphylococcus aureus (MRSA) screening culture NEG NRG Encounters ACCT No. Visit Date/Time Discharge Status Pt. Type Provider Facility Loc./Unit Complaint [id number] 09/06/2014 08:47:00 09/06/2014 23:59:59 CLS Outpatient EMIL ROLON DO [id number] 09/06/2014 08:47:00 09/06/2014 23:59:59 CLS Outpatient ANSON WADE APRN [id number] 08/17/2014 09:19:00 08/17/2014 23:59:59 CLS Outpatient CARMEN GIBBS MD [id number] 07/21/2014 07:46:00 07/21/2014 23:59:59 CLS Outpatient CARMEN GIBBS MD [id number] 07/05/2014 10:18:00 07/05/2014 23:59:59 CLS Outpatient ANSON WADE APRN [id number] 06/03/2014 15:45:00 06/03/2014 23:59:59 CLS Outpatient CARMEN GIBBS MD [id number] 05/31/2014 12:15:00 05/31/2014 23:59:59 CLS Outpatient ELLIOT MORENO DDS [id number] 05/25/2014 10:56:00 05/25/2014 23:59:59 CLS Outpatient RAQUEL TOBIAS APRN [id number] 05/17/2014 10:52:00 05/17/2014 23:59:59 CLS Outpatient ANSON WADE APRN [id number] 05/10/2014 09:54:00 05/10/2014 23:59:59 CLS Outpatient ANSON WADE APRN [id number] 04/27/2014 13:25:00 04/27/2014 23:59:59 CLS Outpatient CARMEN GIBBS MD [id number] 03/30/2014 15:35:00 03/30/2014 23:59:59 CLS Outpatient RAQUEL TOBIAS APRN [id number] 02/24/2014 14:34:00 02/24/2014 23:59:59 CLS Outpatient BRENNA LOBATO APRN [id number] 02/05/2014 15:30:00 02/05/2014 23:59:59 CLS Outpatient CARMEN GIBBS MD [id number] 01/21/2014 15:35:00 01/21/2014 23:59:59 CLS Outpatient ROLON EMIL GAMING Vickey [id number] 01/13/2014 00:00:00 01/13/2014 23:59:59 CLS Outpatient RAQUEL TOBIAS APRN [id number] 12/15/2013 14:31:00 12/15/2013 23:59:59 CLS Outpatient CARMEN GIBBS MD [id number] 11/03/2013 09:45:00 11/03/2013 23:59:59 CLS Outpatient ANSON WADE APRN [id number] 10/28/2013 15:00:00 10/28/2013 23:59:59 CLS Outpatient BRENNA LOBATO APRN [id number] 10/28/2013 15:00:00 10/28/2013 23:59:59 CLS Outpatient BRENNA LOBATO APRN [id number] 09/28/2013 08:54:00 09/28/2013 23:59:59 CLS Outpatient OSMAN ALVAREZ APRN [id number] 09/23/2013 10:48:00 09/23/2013 23:59:59 CLS Outpatient EMIL ROLON DO Vickey [id number] 09/23/2013 10:48:00 09/23/2013 23:59:59 CLS Outpatient GONZALES DOEMIL [id number] 09/17/2013 14:15:00 09/17/2013 23:59:59 CLS Outpatient ROLON DOEMIL Vickey [id number] 09/16/2013 14:57:00 09/16/2013 23:59:59 CLS Outpatient ROLON DO EMIL Hurd [id number] 09/16/2013 14:57:00 09/16/2013 23:59:59 CLS Outpatient ROLON DO EMIL Hurd [id number] 09/12/2013 13:04:00 09/12/2013 23:59:59 CLS Outpatient KIM PROFESSOR OF KINESIOLOGYOSMAN [id number] 09/03/2013 11:29:00 09/03/2013 23:59:59 CLS Outpatient CARMEN GIBBS MD [id number] 07/01/2013 08:59:00 07/01/2013 23:59:59 CLS Outpatient CARMEN GIBBS MD [id number] 06/05/2013 14:44:00 06/05/2013 23:59:59 CLS Outpatient GONZALES GAMING EMIL Hurd [id number] 06/02/2013 12:44:00 06/02/2013 23:59:59 CLS Outpatient RAQUEL LOPEZ DDS [id number] 05/29/2013 15:47:00 05/29/2013 23:59:59 CLS Outpatient CARMEN GIBBS MD [id number] 05/27/2013 09:28:00 05/27/2013 23:59:59 CLS Outpatient CARMEN GIBBS MD [id number] 05/12/2013 15:16:00 05/12/2013 23:59:59 CLS Outpatient ELLY DOUGLAS MD [id number] 08/20/2012 15:44:00 08/20/2012 23:59:59 CLS Outpatient ROLON DO EMIL Hurd [id number] 07/07/2012 11:21:00 07/07/2012 23:59:59 CLS Outpatient BRENNA LOBATO APRN [id number] 07/02/2012 09:18:00 07/02/2012 23:59:59 CLS Outpatient [id number] 05/20/2012 10:05:00 05/20/2012 23:59:59 CLS Outpatient REGNIO BOYD DDS [id number] 04/10/2012 08:55:00 04/10/2012 23:59:59 CLS Outpatient EMIL ROLON DO [id number] 08/22/2017 10:45:00 08/22/2017 17:45:00 DIS Outpatient YUNIOR LYLES MD [facility] SYMPTOMATIC VENTRAL ABDOMINAL INCISIONAL HERNIA [id number] 08/20/2017 05:40:00 08/20/2017 13:12:00 DIS Outpatient YUNIOR LYLES MD [facility] PREOP SYMPTOMATIC VENTRAL ABDOMINAL INCISIONAL HERNIA [id number] 08/12/2017 15:42:00 08/12/2017 19:26:00 DIS Emergency MAKAYLA HAWKINS MD [facility] ER LEFT SIDE PAIN [id number] 07/29/2017 07:04:00 07/29/2017 11:33:00 DIS Emergency MAKAYLA HAWKINS MD [facility] ER FALL ON ICE--BILATERAL ARM PAIN [id number] 07/22/2017 21:10:00 07/23/2017 02:12:00 DIS Emergency YUKI MARCH MD [facility] ER STOMACH PAIN [id number] 07/03/2017 08:18:00 07/03/2017 12:40:00 DIS Outpatient YUNIOR LYLES MD [facility] ENDO HX POLYPS [id number] 06/29/2017 18:40:00 06/29/2017 21:31:00 DIS Emergency YUKI MARCH MD [facility] ER DARK URINE,STOMACH PAIN, THROWING UP,PANCREATITIS [id number] 06/28/2017 10:00:00 06/28/2017 10:11:00 DIS Outpatient YUNIOR LYLES MD [facility] PREOP COLONOSCOPY [id number] 05/30/2017 13:43:00 05/30/2017 15:03:00 DIS Emergency GEORGES FINN APRN [facility] ER CANNOT URINATE [id number] 04/30/2017 01:09:00 04/30/2017 03:16:00 DIS Emergency YAN CHAPARRO DO [facility] ER LOWER ABD PAIN [id number] 04/17/2017 20:45:00 04/18/2017 01:11:00 DIS Emergency KIARA MORRISON [facility] ER ABDOMINAL PAIN,KIDNEY SURGERY ON 04/10 [id number] 04/13/2017 16:02:00 04/13/2017 18:36:00 DIS Emergency GEORGES FINN PROFESSOR OF KINESIOLOGY [facility] ER NO BOWEL MOVEMENT, KIDNEY SURGERY ON 04/10,RASH [id number] 03/14/2017 00:17:00 03/14/2017 06:22:00 DIS Emergency JOAQUIM PARISH, YUKI Machado [facility] ER ABD PAIN [id number] 03/07/2017 08:45:00 03/07/2017 12:32:00 DIS Emergency JUSTICE PARISH, IZABELA Martinez [facility] ER ABD PAIN [id number] 02/21/2017 06:02:00 02/21/2017 07:06:00 DIS Emergency SHRUTHI PARISH, MAKAYLA Alston [facility] ER GLENNA ON NECK-HOT,MEJIA, HURTS TO SWALLOW [id number] 01/30/2017 23:32:00 01/31/2017 00:22:00 DIS Emergency YAN CHAPARRO DO [facility] ER POSS ALLERGIC RXN [id number] 12/01/2016 16:29:00 12/01/2016 19:04:00 DIS Emergency CHARLY PARISH, ADRIÁN Leal [facility] ER FEVER/THROAT PAIN [id number] 10/26/2016 12:59:00 10/26/2016 14:50:00 DIS Emergency KIARA MORRISON [facility] ER VAGINAL DISCOMFORT [id number] 10/11/2016 15:52:00 10/11/2016 18:28:00 DIS Emergency GEOVANI HERNANDEZ [facility] ER SOA,ABD PAIN WHEN BREATHING, NUMBNESS IN ARMS [id number] 08/28/2016 08:49:00 08/28/2016 23:59:59 CLS Outpatient CARMEN GIBBS MD [facility] RAD NECK MASS [id number] 08/16/2016 12:45:00 08/16/2016 23:59:59 CLS Preadmit CARMEN GIBBS MD [facility] RAD HEMOPLYSIS,NECK MASS [id number] 08/16/2016 12:21:00 08/16/2016 23:59:59 CLS Outpatient CARMEN GIBBS MD [facility] RAD HEMOPLYSIS,NECK MASS [id number] 08/05/2016 10:59:00 08/05/2016 14:43:00 DIS Emergency KIARA MORRISON [facility] ER ABD PAIN TO BACK [id number] 06/24/2016 09:45:00 06/24/2016 11:04:00 DIS Emergency ADRIÁN PARKS MD [facility] ER SORE THROAT/COUGH/GREEN SPUTUM/DIZZY [id number] 05/30/2016 06:46:00 05/30/2016 10:08:00 DIS Outpatient ROCHELLE CANNON MD [facility] SDC RIGHT KNEE TORM MEDIAL MENISCUS [id number] 05/23/2016 10:59:00 05/23/2016 12:12:00 DIS Emergency GEROGES FINN APRN [facility] ER FATIGUE [id number] 05/23/2016 09:58:00 05/23/2016 10:43:00 DIS Outpatient ROCHELLE CANNON MD [facility] PREOP RIGHT KNEE TORN MEDIAL MENISCUS [id number] 05/02/2016 15:02:00 05/02/2016 23:59:59 CLS Outpatient ROCHELLE CANNON MD [facility] RAD [id number] 03/05/2016 16:10:00 03/05/2016 19:42:00 DIS Emergency YUKI MARCH MD [facility] ER VAGINAL BLEEDING [id number] 12/21/2015 10:36:00 12/21/2015 14:35:00 DIS Inpatient CARMEN GIBBS MD [facility] 4TH CELLULITIS [id number] 12/19/2015 11:50:00 12/19/2015 14:29:00 DIS Emergency GEORGES FINN PASTOR [facility] ER RIGHT LEG PAIN [id number] 12/18/2015 12:43:00 12/18/2015 16:00:00 DIS Emergency KIARA MORRISON [facility] ER R LEG KNOT POST SURGERY [id number] 12/12/2015 09:12:00 12/12/2015 23:59:59 CLS Outpatient ROCHELLE CANNON MD [facility] RAD DVT [id number] 11/24/2015 13:16:00 11/24/2015 23:59:59 CLS Outpatient ROCHELLE CANNON MD [facility] RAD MEDIAL MENISCUS TEAR [id number] 09/06/2015 07:15:00 09/06/2015 13:25:00 DIS Outpatient YUNIOR LYLES MD [facility] LYMPHADEROPATHY [id number] 08/31/2015 11:25:00 08/31/2015 11:53:00 DIS Outpatient YUNIOR LYLES MD [facility] PREOP LIMP NODE [id number] 06/22/2015 10:51:00 06/22/2015 23:59:59 CLS Preadmit CARMEN GIBBS MD [facility] REHAB [id number] 06/08/2015 06:16:00 06/08/2015 11:35:00 DIS Outpatient ROCHELLE CANNON MD [facility] RIGHT KNEE TORN MEDIAL MENISCUS [id number] 06/02/2015 10:22:00 06/02/2015 23:59:59 CLS Outpatient CARMEN GIBBS MD [facility] LAB HLP [id number] 06/02/2015 10:13:00 06/02/2015 23:59:59 CLS Outpatient ROCHELLE CANNON MD [facility] PREOP RIGHT KNEE TORN MEDIAL MENISCUS [id number] 05/19/2015 08:58:00 05/19/2015 23:59:59 CLS Outpatient DAVIS PARISH, ROCHELLE Salgado [facility] RAD QUADRICEPT TENDONITIS [id number] 01/12/2015 14:32:00 01/12/2015 23:59:59 CLS Outpatient DEE BAH MD [facility] RAD CERVICAL STENOSIS LUMBAR STENOSIS [id number] 11/23/2014 23:46:00 11/24/2014 02:37:00 DIS Emergency JUSTICE PARISH, IZABELA Martinez [facility] ER ABD PAIN [id number] 09/13/2014 09:03:00 09/13/2014 11:31:00 DIS Emergency JUSTICE PARISH, IZABELA Martinez [facility] ER BACK PAIN [id number] 09/04/2014 13:48:00 09/04/2014 15:54:00 DIS Emergency GEORGES FINN PROFESSOR OF KINESIOLOGY [facility] ER BACK PAIN [id number] 05/28/2014 01:35:00 05/28/2014 03:07:00 DIS Emergency ISSAC MASTERS MD [facility] ER POSS ALLERGIC RXN,HEAD PAIN [id number] 05/27/2014 08:20:00 05/27/2014 10:31:00 DIS Emergency RADHA MALLORY MD [facility] ER HEADACHE/NAUSEA [id number] 03/21/2014 17:22:00 03/21/2014 18:07:00 DIS Emergency YAN CHAPARRO DO [facility] ER CRAMPING [id number] 02/04/2014 08:30:00 02/04/2014 23:59:59 CLS Outpatient LAZARO HURTADO [facility] CARD HTN,DYSPNEA [id number] 01/19/2014 13:10:00 01/19/2014 14:04:00 DIS Emergency YAN CHAPARRO DO [facility] ER LOW BACK PAIN/UTI SYMPTOMS [id number] 11/20/2013 16:25:00 11/20/2013 17:42:00 DIS Emergency GEORGES FINN PROFESSOR OF KINESIOLOGY [facility] ER BACK PAIN [id number] 10/29/2013 10:28:00 10/29/2013 12:02:00 DIS Emergency YAN CHAPARRO DO [facility] ER NAUSEATED/VOMITING [id number] 10/06/2013 15:24:00 10/06/2013 18:34:00 DIS Emergency KIARA MORRISON [facility] ER ABD PAIN [id number] 09/07/2013 07:08:00 09/08/2013 12:30:00 DIS Outpatient TATA TOMAS MD [facility] SDC COCCYGDYNIA [id number] 09/01/2013 13:39:00 09/01/2013 23:59:59 CLS Outpatient TATA TOMAS MD [facility] PREOP COCCYGDYNIA [id number] 07/31/2013 06:31:00 07/31/2013 07:53:00 DIS Outpatient LUIS MORENO MD [facility] CARD COCCYX PAIN [id number] 06/30/2013 07:14:00 06/30/2013 23:59:59 CLS Outpatient RONY ALDANA PROFESSOR OF KINESIOLOGY [facility] RAD ELEVATED LIVER ENZYMES [id number] 06/25/2013 16:02:00 06/25/2013 19:00:00 DIS Emergency ISSAC MASTERS MD [facility] ER NAUSEA,VOMITING [id number] 06/04/2013 21:16:00 06/04/2013 21:44:00 DIS Emergency YAN CHAPARRO DO [facility] ER WOUND CHECK [id number] 05/29/2013 20:51:00 05/30/2013 01:31:00 DIS Emergency KIARA MORRISON [facility] ER POSS ABSCESS [id number] 05/28/2013 10:15:00 05/28/2013 18:57:00 DIS Emergency YAN CHAPARRO DO [facility] ER LEFT LEG KNOT [id number] 05/11/2013 19:26:00 05/11/2013 19:56:00 DIS Emergency GEORGES FINN PROFESSOR OF KINESIOLOGY [facility] ER RASH [id number] 05/03/2013 09:13:00 05/03/2013 11:33:00 DIS Emergency JUSTICE PARISH, IZABELA Martinez [facility] ER ABD CRAMPING [id number] 03/08/2013 15:14:00 03/08/2013 16:28:00 DIS Emergency SHANKAR DO, YAN K [facility] ER HEADACHE [id number] 02/12/2013 14:02:00 02/12/2013 16:12:00 DIS Emergency RADHA MALLORY MD [facility] ER HEADACHE [id number] 02/03/2013 09:00:00 02/03/2013 23:59:59 CLS Outpatient [id number] 01/25/2013 16:03:00 01/25/2013 16:39:00 DIS Emergency SHANKAR DOYAN K [facility] ER TAILBONE THROBS [id number] 01/23/2013 07:33:00 01/23/2013 23:59:59 CLS Outpatient LUIS MORENO MD [facility] CARD COCCYX PAIN [id number] 12/30/2012 11:28:00 12/30/2012 12:33:00 DIS Emergency RUDOLPH PARISH, JOHN Dean [facility] ER LOOSING FEELING IN HANDS [id number] 11/29/2012 20:20:00 11/29/2012 21:04:00 DIS Emergency ISSAC MASTERS MD [facility] ER POST OP COMPLICATIONS [id number] 11/01/2012 13:48:00 11/01/2012 16:16:00 DIS Emergency SHANKAR DOYAN [facility] ER R SIDE ABD PAIN [id number] 05/28/2014 05:09:00 Document Registration [id number] 05/28/2014 05:09:00 Document Registration [id number] 05/28/2014 05:08:00 Document Registration [id number] 05/28/2014 05:08:00 Document Registration [id number] 05/28/2014 05:08:00 Document Registration [id number] 09/25/2012 15:23:00 Document Registration [id number] 07/09/2012 13:55:00 Document Registration [id number] 06/03/2012 18:43:00 Document Registration [id number] 05/28/2012 06:01:00 Document Registration [id number] 05/26/2012 07:40:00 Document Registration [id number] 04/29/2012 19:28:00 Document Registration [id number] 04/14/2012 20:36:00 Document Registration [id number] 04/02/2012 15:46:00 Document Registration [id number] 03/10/2012 08:51:00 Document Registration [id number] 02/02/2012 08:22:00 Document Registration [id number] 11/05/2011 18:15:00 Document Registration [id number] 10/09/2011 15:34:00 Document Registration [id number] 09/28/2011 12:13:00 Document Registration [id number] 08/20/2011 11:21:00 Document Registration [id number] 08/07/2011 12:50:00 Document Registration [id number] 06/19/2011 15:10:00 Document Registration [id number] 06/14/2011 10:23:00 Document Registration [id number] 04/26/2011 09:49:00 Document Registration [id number] 04/01/2011 15:48:00 Document Registration [id number] 01/14/2011 20:10:00 Document Registration [id number] 01/10/2011 01:57:00 Document Registration [id number] 12/29/2010 21:29:00 Document Registration [id number] 12/08/2010 18:15:00 Document Registration [id number] 11/16/2010 19:34:00 Document Registration [id number] 11/13/2010 17:20:00 Document Registration [id number] 10/07/2010 15:04:00 Document Registration [id number] 10/01/2010 20:35:00 Document Registration [id number] 09/29/2010 15:45:00 Document Registration [id number] 09/22/2010 00:30:00 Document Registration [id number] 09/20/2010 18:21:00 Document Registration [id number] 09/16/2010 19:14:00 Document Registration [id number] 09/06/2010 15:05:00 Document Registration [id number] 08/30/2010 16:23:00 Document Registration [id number] 07/31/2010 10:04:00 Document Registration [id number] 07/24/2010 05:42:00 Document Registration [id number] 07/12/2010 09:04:00 Document Registration [id number] 07/02/2010 12:40:00 Document Registration [id number] 06/07/2010 10:52:00 Document Registration [id number] 05/22/2010 18:40:00 Document Registration [id number] 05/09/2010 13:26:00 Document Registration [id number] 04/07/2010 16:51:00 Document Registration [id number] 03/31/2010 12:30:00 Document Registration [id number] 03/22/2010 20:54:00 Document Registration [id number] 02/13/2010 10:21:00 Document Registration [id number] 02/07/2010 17:04:00 Document Registration [id number] 02/05/2010 19:55:00 Document Registration [id number] 01/23/2010 10:58:00 Document Registration [id number] 01/09/2010 05:35:00 Document Registration [id number] 01/05/2010 07:39:00 Document Registration [id number] 12/13/2009 10:13:00 Document Registration [id number] 11/07/2009 17:37:00 Document Registration [id number] 11/03/2009 09:46:00 Document Registration
[2017-09-02 22:12] LABS: WBC,URINE RARE /HPF
[2017-09-02 22:13] LABS: BACTERIA,URINE TRACE /HPF
[2017-09-02 22:13] LABS: ALANINE AMINOTRANSFERASE 24 U/L (0-55); ALKALINE PHOSPHATASE 72 U/L (40-136); AMYLASE 53 U/L (25-125); BILIRUBIN,TOTAL 0.2 MG/DL (0.1-1.0); BUN/CREATININE RATIO 13; CALCIUM 9.6 MG/DL (8.5-10.1); CARBON DIOXIDE 27 MMOL/L (21-32); CHLORIDE 108 MMOL/L (98-107); CREATININE SERUM 0.98 MG/DL (0.60-1.30); GFR ESTIMATED > 60; GLUCOSE 118 MG/DL (70-105); LIPASE 39 U/L (8-78); SODIUM 144 MMOL/L (135-145); TOTAL PROTEIN 7.6 GM/DL (6.4-8.2)
[2017-09-02 23:50] VITALS: BP 123/69
[2017-09-03] MEDS ORDERED: CIPROFLOXACIN IV 400MG/200ML 200 ML IV ONE (00:15)
--- OUTSIDE RECORDS SUMMARY | 2017-09-03 00:36 | XMS REPORT | Continuity of Care Document ---
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 07/15/20132013 Active [facility] [place] [id number] [facility] 03/18/2017 03/18/2017 Active [facility] EXT RECOVERY [id number] [facility] 04/10/2017 04/11/2017 Active [facility] [place] SERIES [id number] [facility] 05/06/2017 05/06/2017 Active [facility] OUTPATIENT [id number] 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
--- OUTSIDE RECORDS SUMMARY | 2017-09-03 00:36 | XMS REPORT | Encounter Summary ---
Author Author [facility] Organization [facility] Address Unknown Phone Unavailable Care Team Providers Care Event Marketing Assistant Name Role Phone Michael Sutton MD Unavailable Unavailable Mary Whittington MD PCP Jessica Valera Unavailable Maggie Puente Unavailable Unavailable Mary Telles APRN Unavailable Bam Ritter MD Unavailable Radha Bo ACCOUNTING MANAGER CPA Unavailable Unavailable Jose Sanchez MD Unavailable Encounter Details Date Type Department Care Team Description 05/06/2017 Procedure Pass [facility] Exam [address] [place] [address] Social History Tobacco Use Types Packs/Day Years [...]
--- OUTSIDE RECORDS SUMMARY | 2017-09-03 00:36 | XMS REPORT | Clinical Summary ---
Author Author [facility] Organization [facility] Address Unknown Phone Unavailable Care Team Providers Care Manager Welding Name Role Phone Michael Sutton MD Unavailable [...] in the Health Information Management department at [phone] for further assistance in locating additional records.[facility] Allergies Active Allergy Reactions Severity Noted Date [...] Overview: Added automatically from request for surgery [id number] 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 06/24/2013 Overview: S/P FREDI LINO 11/27 [...] CDT Respiratory Rate 14 06/03/2017 10:10 AM THEATER MANAGER Oxygen Saturation 97% 05/06/2017 8:47 AM THEATER MANAGER Inhaled Oxygen - - Concentration Weight 118.4 [...] Specimen Performing Laboratory Blood MAIN LAB [address] [place] [address] * CBC (09/02/2017 10:40 AM) Component Value [...] Specimen Performing Laboratory Blood MAIN LAB [address] [place] [address] * VITAMIN B12 (09/02/2017 10:40 AM) Component Value Ref Range Vitamin B12 495 180 - 914 PG/ML Specimen Performing Laboratory Blood MAIN LAB [address] [place] [address] * CT ABD/PEL EXTERNAL IMAGING (08/12/2017) Narrative This order has been auto finalized and does not contain a result. * SURGICAL PATHOLOGY (06/18/2017 2:27 PM) Component Value Ref Range PATHOLOGY REPORT [facility] [email or web address] Department of Pathology and Laboratory Medicine [address] [place] [address] Surgical Pathology Office: [phone] SURGICAL PATHOLOGY REPORT NAME: JAYLYN DELGADO SURG PATH #: [id number] MR #: [id number] SPECIMEN CLASS: SR BILLING #: [id number] ALT ID #: LOCATION: [facility] [...]
--- OUTSIDE RECORDS SUMMARY | 2017-09-03 00:37 | XMS REPORT | Encounter Summary ---
Author Author [facility] Organization [facility] Address Unknown Phone Unavailable Care Team Providers Care Powerhouse Tender Name Role Phone Michael Sutton MD Unavailable Unavailable Mary Whittington MD PCP Jessica Valera Unavailable Maggie Puente Unavailable Unavailable Mary Telles APRN Unavailable Bam Ritter MD Unavailable Radha Bo LPN Unavailable Unavailable Jose Sanchez MD Unavailable Reason for Visit * Reason Comments Pain Encounter Details Date Type Department Care Team Description 06/20/2017 Telephone [facility] Abel Poe MD [facility] Exam [address] [facility] [address] [place] [address] [place] [address] [phone] Social History Tobacco Use Types Packs/Day Years [...] Maddi Cannon, RN - 06/20/2017 9:47 AM PLANT OPERATOR HELPER Pt called stating she has been sick since having he GI scope and now is experiencing pain in abdomen on right side which is opposite side of renal surgery. Pt notes her urine is dark but denies fever. Pt admits to increase stress in her life and has to go to court today for which Dr Gooden is speaking with transportation mechanic. Instructed pt she needs to either go [...]
--- OUTSIDE RECORDS SUMMARY | 2017-09-03 00:37 | XMS REPORT | Encounter Summary ---
Author Author [facility] Organization [facility] Address Unknown Phone Unavailable Care Team Providers Care Entry Level Installation Technician Name Role Phone Michael Sutton MD Unavailable Unavailable Mary Whittington MD PCP Jessica Valera Unavailable Maggie Puente Unavailable Unavailable Mary Telles APRN Unavailable Bam Ritter MD Unavailable Radha Bo LPN Unavailable Unavailable Jose Sanchez MD Unavailable Encounter Details Date Type Department Care Team Description 08/13/2017 Ancillary Rad Outpatient, Radiologist Diagnosis unknown Orders [address] [place] [address] Social History Tobacco Use Types [...]
--- OUTSIDE RECORDS SUMMARY | 2017-09-03 00:37 | XMS REPORT | Encounter Summary ---
Author Author [facility] Organization [facility] Address Unknown Phone Unavailable Care Team Providers Care Room Service Attendant Name Role Phone Michael Sutton MD Unavailable Unavailable aMry Whittington MD PCP Jessica Valera Unavailable Maggie Puente Unavailable Unavailable Mary Telles APRN Unavailable Bam Ritter MD Unavailable Radha Bo LPN Unavailable Unavailable Jose Sanchez MD Unavailable Reason for Visit * Reason Comments Hernia Encounter Details Date Type Department Care Team Description 08/14/2017 Telephone [facility] Abel Poe MD [facility] Exam [address] [facility] [address] [place] [address] [place] [address] [phone] Social History Tobacco Use Types Packs/Day Years [...] Jenn Bhatt, RN - 08/14/2017 11:56 AM MANAGER PAID Returned pt's phone messages regarding new report of lung nodule and abd hernia. She spent time in the ED this weekend @ [facility] in [place]. She reports these findings and their recommendation that she follow up with Dr. Poe. Awaiting confirmation of records and will advise pt on follow up. in this encounter Plan of Treatment Date Type Specialty Care Team Description 05/06/2017 Procedure Pass Oncology 05/06/2017 Procedure Pass Oncology as of this encounter Visit Diagnoses Not on filein this encounter
--- OUTSIDE RECORDS SUMMARY | 2017-09-03 00:37 | XMS REPORT | Encounter Summary ---
Author Author [facility] Organization [facility] Address Unknown Phone Unavailable Care Team Providers Care Digital Ad Trafficker Name Role Phone Michael Sutton MD Unavailable Unavailable Mary Whittington MD PCP Jessica Valera Unavailable Maggie Puente Unavailable Unavailable Mary Telles APRN Unavailable Bam Ritter MD Unavailable Radha Bo LPN Unavailable Unavailable Jose Sanchez MD Unavailable Encounter Details Date Type Department Care Team Description 09/02/2017 Hospital [facility] Randy Nunez MD Arrived Encounter [address] [place] [address] [address] [place] [address] [phone] Social History Tobacco Use Types Packs/Day Years [...] Performing Laboratory [facility] [address] [place] [address] * CBC (09/02/2017 10:40 AM) Component Value [...] Performing Laboratory [facility] [address] [place] [address] * IRON + BINDING CAPACITY + %SAT+ FERRITIN (09/02/2017 10:40 AM) Component Value Ref Range Iron 55 50 - 160 MCG/DL Iron Binding-TIBC 495 (H) 270 - 380 MCG/DL % Saturation 11 (L) 28 - 42 % Ferritin 81 10 - 200 NG/ML Specimen Performing Laboratory Blood [facility] MAIN [facility] [address] [place] [address] in this encounter Visit Diagnoses Diagnosis Iron deficiency Iron deficiency anemia, unspecified Vitamin D deficiency Unspecified vitamin D deficiency Chronic nausea Nausea alone Chronic vomiting Vomiting alone B12 deficiency Other B-complex deficiencies Low vitamin D level Medication monitoring encounter Encounter for therapeutic drug monitoring
--- OUTSIDE RECORDS SUMMARY | 2017-09-03 00:37 | XMS REPORT | Encounter Summary ---
Author Author [facility] Organization [facility] Address Unknown Phone Unavailable Care Team Providers Care Home Visitor Home Base Head Start Name Role Phone Michael Sutton MD Unavailable Unavailable Mary Whittington MD PCP Jessica Valera Unavailable Maggie Puente Unavailable Unavailable Mary Telles APRN Unavailable Bam Ritter MD Unavailable Radha Bo LPN Unavailable Unavailable Jose Sanchez MD Unavailable Reason for Visit * Reason Comments General Question Records Request Encounter Details Date Type Department Care Team Description 07/09/2017 Telephone [facility] Randy Nunez MD General Question; Records Physicians - Internal [address] [facility] Request Medicine [address] [place] [address] [address] [facility] [phone] [address] Social History Tobacco Use Types [...] Arleen Leone RN - 07/11/2017 11:17 AM STUDENT WORKER Phoned patient. Confirms did get colonoscopy locally and was informed was normal. Request for records sent to [facility] to review with Dr. Nunez. Difficult conversation [...] Alexandria Domingo RN - 07/09/2017 3:05 PM STUDENT WORKER Patient called and left a voice mail [...]
--- OUTSIDE RECORDS SUMMARY | 2017-09-03 00:37 | XMS REPORT | Encounter Summary ---
Author Author [facility] Organization [facility] Address Unknown Phone Unavailable Care Team Providers Care Rn Clinical Name Role Phone Michael Sutton MD Unavailable Unavailable Mary Whittington MD PCP Jessica Valera Unavailable Maggie Puente Unavailable Unavailable Mary Telles CATERING BARISTA Unavailable Bam Ritter MD Unavailable Radha Bo FRENCH PASTRY COOK Unavailable Unavailable Jose Sanchez MD Unavailable Reason for Referral * Consult, Test & Treat Status Reason Specialty Diagnoses / Referred By Referred To Procedures Contact Contact Closed Specialty General Surgery Diagnoses Able Poe MD Freund, William L, Services Renal cell [address] Required cancer, left Blvd [address] (HCC) [address] [place] [address] Phone: Fax: Encounter Details Date Type Department Care Team Description 08/14/2017 Orders Only [facility] Abel Poe MD Renal cell cancer, left [facility] Exam [address] (HCC) (Primary Dx) [address] [place] [address] [place] [address] [phone] Social History Tobacco Use Types Packs/Day Years [...]
--- OUTSIDE RECORDS SUMMARY | 2017-09-03 00:37 | XMS REPORT | Encounter Summary ---
Author Author [facility] Organization [facility] Address Unknown Phone Unavailable Care Team Providers Care Tool Crib Attendant Name Role Phone Michael Sutton MD Unavailable Unavailable Mary Whittington MD PCP Jessica Valera Unavailable Maggie Puente Unavailable Unavailable Mary Telles APRN Unavailable Bam Ritter MD Unavailable Radha Bo LPN Unavailable Unavailable Jose Sanchez MD Unavailable Reason for Visit * Reason Comments Fall Encounter Details Date Type Department Care Team Description 08/08/2017 Telephone [facility] Abel Poe MD [facility] Exam [address] [facility] [address] [place] [address] [place] [address] [phone] Social History Tobacco Use Types Packs/Day Years [...] Jenn Bhatt, RN - 08/08/2017 10:19 AM HR ADMINISTRATIVE ASSISTANT Pt left message that she had a recent fall and was experiencing pain on the side of her kidney surgery done in [place]. Returned her call and left her a message informing her that since she is in [place], [place] she needs to be evaluated closer [...]
--- OUTSIDE RECORDS SUMMARY | 2017-09-03 00:37 | XMS REPORT | Encounter Summary ---
Author Author [facility] Organization [facility] Address Unknown Phone Unavailable Care Team Providers Care Document Reviewer Name Role Phone Michael Sutton MD Unavailable Unavailable Mary Whittington MD PCP Jessica Valera Unavailable Maggie Puente Unavailable Unavailable Mary Telles APRN Unavailable Bam Ritter MD Unavailable Radha Bo LPN Unavailable Unavailable Jose Sanchez MD Unavailable Reason for Visit * Reason Comments Medication Refill Encounter Details Date Type Department Care Team Description 08/08/2017 Refill [facility] Randy Nunez MD Medication monitoring Physicians - Internal [address] [place] [address] encounter Medicine [address] [place] [address] [place] [address] Social History Tobacco Use Types [...]
--- OUTSIDE RECORDS SUMMARY | 2017-09-03 00:37 | XMS REPORT | Encounter Summary ---
Author Author [facility] Organization [facility] Address Unknown Phone Unavailable Care Team Providers Care [place] Name Role Phone Michael Sutton MD Unavailable Unavailable Mary Whittington MD PCP Jessica Valera Unavailable Maggie Puente Unavailable Unavailable Mary Telles APRN Unavailable Bam Ritter MD Unavailable Radha Bo PRODUCT BLENDING SUPERVISOR Unavailable Unavailable Jose Sanchez MD Unavailable Encounter Details Date Type Department Care Team Description 05/06/2017 Procedure Pass [facility] Exam [address] [place] [address] Social History Tobacco Use Types Packs/Day Years [...]
--- OUTSIDE RECORDS SUMMARY | 2017-09-03 00:37 | XMS REPORT | Encounter Summary ---
Author Author [facility] Organization [facility] Address Unknown Phone Unavailable Care Team Providers Care Supervisor Braiding Name Role Phone Michael Sutton MD Unavailable Unavailable Mary Whittington MD PCP Jessica Valera Unavailable Maggie Puente Unavailable Unavailable Mary Telles APRN Unavailable Bam Ritter MD Unavailable Radha Bo LPN Unavailable Unavailable Jose Sanchez MD Unavailable Encounter Details Date Type Department Care Team Description 08/12/2017 Hospital [facility] Radiology [address] [facility] [address] [place] [address] Social History Tobacco Use Types [...]
--- OUTSIDE RECORDS SUMMARY | 2017-09-03 00:37 | XMS REPORT | Encounter Summary ---
Author Author [facility] Organization [facility] Address Unknown Phone Unavailable Care Team Providers Care Beater Out Name Role Phone Michael Sutton MD Unavailable Unavailable Mary Whittington MD PCP Jessica Valera Unavailable Maggie Puente Unavailable Unavailable Mary Telles HOUSE MOVING SUPERVISOR Unavailable Bam Ritter MD Unavailable Radha Bo POULTRY SCIENTIST Unavailable Unavailable Jose Sanchez MD Unavailable Reason for Visit * Reason Comments Abdominal pain Constipation Blood in stools Nausea Anal Pain Vomiting Encounter Details Date Type Department Care Team Description 09/02/[address] [facility] Jessica Valera ARNP B12 deficiency (Primary Physicians - Internal [address] Dx); Medicine [address] Chronic nausea; [address] [place] [address] Epigastric pain; [place] [address] Chronic pancreatitis, unspecified pancreatitis type [...] if you have any questions or concerns. [phone]. in this encounter Progress Notes * Jessica [...] with endoscopic ultrasound. She has seen Dr. Dexter in the past. She has undergone prior [...] [facility] [place] [place] for further recommendations. She [...] of [facility] [place] [place]. Patient was advised of the plan [...] Specimen Performing Laboratory Blood MAIN LAB [address] [place] [address] * CBC (09/02/2017 10:40 AM) Component Value [...] Specimen Performing Laboratory Blood MAIN LAB [address] [place] [address] * IRON + BINDING CAPACITY + %SAT+ FERRITIN (09/02/2017 10:40 AM) Component Value Ref Range Iron 55 50 - 160 MCG/DL Iron Binding-TIBC 495 (H) 270 - 380 MCG/DL % Saturation 11 (L) 28 - 42 % Ferritin 81 10 - 200 NG/ML Specimen Performing Laboratory Blood MAIN LAB [address] [place] [address] in this encounter Visit Diagnoses Diagnosis B12 deficiency - Primary Other B-complex deficiencies Chronic nausea Nausea alone Epigastric pain Abdominal pain, epigastric Chronic pancreatitis, unspecified pancreatitis type (HCC) Vitamin D deficiency Unspecified vitamin D deficiency Iron deficiency Iron deficiency anemia, unspecified Chronic vomiting Vomiting alone
--- OUTSIDE RECORDS SUMMARY | 2017-09-03 00:38 | XMS REPORT | Encounter Summary ---
Author Author [facility] Organization [facility] Address Unknown Phone Unavailable Care Team Providers Care Recreational Sports Director Name Role Phone Michael Sutton MD Unavailable Unavailable Mary Whittington MD PCP Jessica Valera Unavailable Maggie Puente Unavailable Unavailable Mary Telles APRN Unavailable Bam Ritter MD Unavailable Radha Bo LPN Unavailable Unavailable Jose Sanchez MD Unavailable Reason for Visit * Reason Comments Appointment Request Upper EUS/Colonoscopy Encounter Details Date Type Department Care Team Description 06/06/2017 Telephone [facility] Maggie Puente Appointment Request Physicians - Internal (Upper EUS/Colonoscopy) Medicine [address]ND FLOOR POD [address] [facility] [place] [address] Social History Tobacco Use Types [...] - Maggie Puente - 06/07/2017 8:32 AM HAT BINDER Scheduled Upper EUS/Colonoscopy at [facility] with Dr Sanchez on 06/18/17. Verbal instructions given over the phone, packet e-mailed to [email or web address]. Advised patient to contact the prescribing provider for any blood thinning medication and/or aspirin recommendations 1 week prior to having procedure. Patient verbalized understanding. * Telephone Encounter - Maggie Puente - 06/07/2017 8:28 AM HAT BINDER Left generic message for patient to return call to schedule Upper EUS/ Colonoscopy. * Telephone Encounter - Maggie Puente - 06/06/2017 2:36 PM HAT BINDER Left generic message for patient to return call to schedule Upper EUS/ Colonoscopy. in this encounter Plan of Treatment Date Type Specialty Care Team Description 05/06/2017 Procedure Pass Oncology 05/06/2017 Procedure Pass Oncology as of this encounter Visit Diagnoses Not on filein this encounter
--- OUTSIDE RECORDS SUMMARY | 2017-09-03 00:38 | XMS REPORT | Encounter Summary ---
Author Author [facility] Organization [facility] Address Unknown Phone Unavailable Care Team Providers Care Field Artillery Officer Name Role Phone Michael Sutton MD Unavailable Unavailable Mary Whittington MD PCP Jessica Valera Unavailable Maggie Puente Unavailable Unavailable Mary Telles APRN Unavailable Bam Ritter MD Unavailable Radha Bo LPN Unavailable Unavailable Jose Sanchez MD Unavailable Reason for Visit * Reason Comments Follow-up Phone Call Encounter Details Date Type Department Care Team Description 06/19/2017 Telephone [facility] Randy Nunez MD Follow- up Phone Call Physicians - Internal [facility] Medicine [place] [address] [place] [address] [place] [address] Social History Tobacco Use Types [...] Arleen Leone RN - 06/19/2017 2:51 PM RACK PULLER Message back to patient regarding Dr. Nunez's response. * Telephone Encounter - Randy Nunez MD - 06/19/2017 1:00 PM RACK PULLER Yes can be done locally, please have copy sent to us. Thanks * Telephone Encounter - Arleen Leone RN - 06/19/2017 9:26 AM RACK PULLER Patient calling today to inform did have [...]
--- OUTSIDE RECORDS SUMMARY | 2017-09-03 00:38 | XMS REPORT | Encounter Summary ---
Author Author [facility] Organization [facility] Address Unknown Phone Unavailable Care Team Providers Care Acetone Button Paster Name Role Phone Michael Sutton MD Unavailable Unavailable Mary Whittington MD PCP Jessica Valera Unavailable Maggie Puente Unavailable Unavailable Mary Telles APRN Unavailable Bam Ritter MD Unavailable Radha Bo LPN Unavailable Unavailable Jose Sanchez MD Unavailable Reason for Visit * Reason Comments Results Test Encounter Details Date Type Department Care Team Description 06/06/2017 Telephone [facility] Randy Nunez MD Results ; Test Physicians - Internal [address] [facility] Medicine [place] [address] [place] [address] [place] [address] Social History Tobacco Use Types [...] Arleen Leone RN - 06/06/2017 8:47 AM PROGRAM AND RESEARCH COORDINATOR Patient aware of lab results along with Dr. Nunez's recommendations. Results sent to Dr. Whittington's office and patient will get with their office regarding administration of her new Vitamin B12 monthly injections. All new prescriptions have been e-scribed to patient's pharmacy. Patient aware may have to purchase Iron over the counter. * Telephone Encounter - Arleen Leone RN - 06/06/2017 8:34 AM PROGRAM AND RESEARCH COORDINATOR ----- Message from Randy Nunez MD sent at 06/05/2017 10:11 AM PROGRAM AND RESEARCH COORDINATOR ----- Laboratory evaluation is consistent with iron [...]
--- OUTSIDE RECORDS SUMMARY | 2017-09-03 00:38 | XMS REPORT | Encounter Summary ---
Author Author [facility] Organization [facility] Address Unknown Phone Unavailable Care Team Providers Care Sign Out Clerk Name Role Phone Michael Sutton MD Unavailable Unavailable Mary Whittington MD PCP Jessica Valera Unavailable Maggie Puente Unavailable Unavailable Mary Telles APRN Unavailable Bam Ritter MD Unavailable Radha Bo LPN Unavailable Unavailable Jose Sanchez MD Unavailable Encounter Details Date Type Department Care Team Description 06/19/2017 Orders Only [facility] Joes Sanchez MD Physicians - Internal [address] [facility] Medicine [place] [address] [place] [address] [address] [facility] MED [phone] [place] [address] Social History Tobacco Use Types [...]
--- OUTSIDE RECORDS SUMMARY | 2017-09-03 00:38 | XMS REPORT | Encounter Summary ---
Author Author [facility] Organization [facility] Address Unknown Phone Unavailable Care Team Providers Care Service Delivery Management Consultant Name Role Phone Michael Sutton MD Unavailable Unavailable Mary Whittington MD PCP Jessica Valera Unavailable Maggie Puente Unavailable Unavailable Mary Telles APRN Unavailable Bam Ritter MD Unavailable Radha Bo LPN Unavailable Unavailable Tyesha Sanchez MD Unavailable Encounter Details Date Type Department Care Team Description 06/18/2017 Hospital [facility] Tyesha Sanchez MD Other chronic Encounter [address] pancreatitis ([place]) [place] [address] [address] [place] [address] [phone] Social History Tobacco Use Types Packs/Day Years [...] Component Value Ref Range PATHOLOGY REPORT [facility] [email or web address] Department of Pathology and Laboratory Medicine [address] [place] [id number] Surgical Pathology Office: [phone] SURGICAL PATHOLOGY REPORT NAME: JAYLYN DELGADO SURG PATH #: [id number] MR #: [id number] SPECIMEN CLASS: SR BILLING #: [id number] ALT ID #: LOCATION: [facility] DATE OF PROCEDURE: 06/18/2017 AGE: [...]
[2017-09-03 00:55] VITALS: BP 111/60
[2017-09-03] MEDS: D5 1/2 NS 1000 ML IV SOLUTION 1,000 ML IV SCH ×4 (01:34→22:20)
[2017-09-03] MEDS ORDERED: D5 1/2 NS 1000 ML IV SOLUTION 1,000 ML IV ONE (01:34)
--- OUTSIDE RECORDS SUMMARY | 2017-09-03 01:40 | XMS REPORT | Continuity of Care Document ---
Author Author [facility] Address Unknown Phone Unavailable Allergies Active Description Code Type Severity Reaction Onset Reported/Identified Relationship to Patient Clinical Status Yes Demerol Drug Allergy N/A N/A 08/04/2008 Yes fentanyl Drug Allergy N/A N/A 08/04/2008 Yes Penicillins Drug Allergy N/A N/A 08/04/2008 Yes Demerol Drug Allergy 08/04/2008 Yes fentanyl Drug Allergy 08/04/2008 Yes Penicillins Drug Allergy 08/04/2008 Yes fentanyl [id number] Drug Allergy Unknown N/A 05/23/2016 Yes meperidine [id number] Drug Allergy Unknown N/A 08/20/2017 Yes penicillin G [id number] Drug Allergy Unknown N/A 08/20/2017 Medications There [...] DO, EMIL K 784.0 Headache 08/04/2008 KIM NURSE ORTHO, OSMAN T 577.9 PANCREATITIS 08/04/2008 KIM NURSE ORTHO, OSMAN T 780.79 FATIGUE 08/04/2008 KIM NURSE ORTHO OSMAN T 784.0 Headache 08/04/2008 ROLON DO, EMIL K 577.9 PANCREATITIS 08/04/2008 ROLON DO, EMIL K 780.79 FATIGUE 08/04/2008 ROLON DO, EMIL K 784.0 Headache 08/04/2008 ROLON DO, EMIL K 577.9 PANCREATITIS 08/04/2008 ROLON DO, EMIL K 780.79 FATIGUE 08/04/2008 ROLON DO, EMIL K 784.0 Headache 08/04/2008 LUIS ALFREDO NURSE ORTHO, BRENNA R 577.9 PANCREATITIS 08/04/2008 LUIS ALFREDO NURSE ORTHO, BRENNA R 780.79 FATIGUE 08/04/2008 LUIS ALFREDO NURSE ORTHO, BRENNA R 784.0 Headache 08/04/2008 MAD NURSE ORTHO, ANSON L 577.9 PANCREATITIS 08/04/2008 MAD NURSE ORTHO, ANSON L 780.79 FATIGUE 08/04/2008 MAD NURSE ORTHO, ANSON L 784.0 Headache 08/04/2008 LUIS ALFREDO YUN, BRENNA R 577.9 PANCREATITIS 08/04/2008 LUIS ALFREDO NURSE ORTHO, BRENNA R 780.79 FATIGUE 08/04/2008 LUIS ALFREDO YUN, BRENNA R 784.0 Headache 08/04/2008 SAI PARISH, CARMEN N 577.9 PANCREATITIS 08/04/2008 CARMEN GIBBS MD N 780.79 FATIGUE 08/04/2008 CARMEN GIBBS MD N 784.0 Headache 08/04/2008 ROLON DO, EMIL K 577.9 PANCREATITIS 08/04/2008 ROLON DO, EMIL K 780.79 FATIGUE 08/04/2008 ROLON DO, EMIL K 784.0 Headache 08/04/2008 MICHELINE NURSE ORTHO, RAQUEL R 577.9 PANCREATITIS 08/04/2008 MICHELINE NURSE ORTHO, RAQUEL R 780.79 FATIGUE 08/04/2008 MICHELINE NURSE ORTHO, RAQUEL R 784.0 Headache 08/04/2008 CARMEN GIBBS MD N 577.9 PANCREATITIS 08/04/2008 CARMEN GIBBS MD N 780.79 FATIGUE 08/04/2008 CARMEN GIBBS MD N 784.0 Headache 08/04/2008 LOBATO NURSE ORTHO, BRENNA R 577.9 PANCREATITIS 08/04/2008 LOBATO NURSE ORTHO, BRENNA R 780.79 FATIGUE 08/04/2008 LOBATO NURSE ORTHO, BRENNA R 784.0 Headache 08/04/2008 MICHELINE NURSE ORTHO, RAQUEL R 577.9 PANCREATITIS 08/04/2008 MICHELINE NURSE ORTHO, RAQUEL R 780.79 FATIGUE 08/04/2008 MICHELINE NURSE ORTHO, RAQUEL R 784.0 Headache 08/04/2008 CARMEN GIBBS MD N 577.9 PANCREATITIS 08/04/2008 CARMEN GIBBS MD N 780.79 FATIGUE 08/04/2008 CARMEN GIBBS MD N 784.0 Headache 08/04/2008 MADL NURSE ORTHO, ANSON L 577.9 PANCREATITIS 08/04/2008 MADL NURSE ORTHO, ANSON L 780.79 FATIGUE 08/04/2008 MADL NURSE ORTHO, ANSON L 784.0 Headache 08/04/2008 MADL NURSE ORTHO, ANSON L 577.9 PANCREATITIS 08/04/2008 MADL NURSE ORTHO, ANSON L 780.79 FATIGUE 08/04/2008 MADL NURSE ORTHO, ANSON L 784.0 Headache 08/04/2008 MICHELINE NURSE ORTHO, RAQUEL R 577.9 PANCREATITIS 08/04/2008 MICHELINE NURSE ORTHO, RAQUEL R 780.79 FATIGUE 08/04/2008 MICHELINE NURSE ORTHO, RAQUEL R 784.0 Headache 08/04/2008 WHITE DDS, [...] DO, EMIL K 784.0 Headache 08/04/2008 MADL NURSE ORTHO, ANSON L 577.9 PANCREATITIS 08/04/2008 MADL NURSE ORTHO, ANSON L 780.79 FATIGUE 08/04/2008 MADL NURSE ORTHO, ANSON L 784.0 Headache 08/04/2008 CARMEN GIBBS MD N 577.9 PANCREATITIS 08/04/2008 CARMEN GIBBS MD N 780.79 FATIGUE 08/04/2008 CARMEN GIBBS MD N 784.0 Headache 08/04/2008 CARMEN GIBBS MD N 577.9 PANCREATITIS 08/04/2008 CARMEN GIBBS MD N 780.79 FATIGUE 08/04/2008 CARMEN GIBBS MD N 784.0 Headache 08/04/2008 MADL NURSE ORTHO, ANSON L 577.9 PANCREATITIS 08/04/2008 MADL NURSE ORTHO, ANSON L 780.79 FATIGUE 08/04/2008 MADL NURSE ORTHO, ANSON L 784.0 Headache 08/04/2008 GONZALES GAMING [...] Endocrine Laboratory Tests Nonspecific Abnormal Findings 12/20/2008 ORLON DO, EMIL K 794.6 Endocrine Laboratory Tests [...] BAUMANN, BRENNA R 493.90 ASTHMA 03/31/2009 MICHELINE NURSE ORTHO, RAQUEL R 493.90 ASTHMA 03/31/2009 CARMEN GIBBS MD N 493.90 ASTHMA 03/31/2009 MADL NURSE ORTHO, ANSON L 493.90 ASTHMA 03/31/2009 MADL NURSE ORTHO, ANSON L 493.90 ASTHMA 03/31/2009 MICHELINE NURSE ORTHO, RAQUEL R 493.90 ASTHMA 03/31/2009 JOSH VILLAVICENCIO, ELLIOT Alston 493.90 ASTHMA 03/31/2009 SAI PARISH, CARMEN N 493.90 ASTHMA 03/31/2009 SUDHIR ROLON DOA K 493.90 ASTHMA 03/31/2009 MADBenji NURSE ORTHO, ANSON L 493.90 ASTHMA 03/31/2009 CARMEN GIBBS MD N 493.90 ASTHMA 03/31/2009 CARMEN GIBBS MD N 493.90 ASTHMA 03/31/2009 MADL NURSE ORTHO, ANSON L 493.90 ASTHMA 03/31/2009 SUDHIR ROLON DOA K 493.90 ASTHMA 04/25/2009 DBE VILLAVICENCIO, REGINO Christie V74.1 Screening Examination For [...] Screening Examination For Pulmonary Tuberculosis 04/25/2009 SHERI NURSE ORTHO, ANSON L V74.1 Screening Examination For Pulmonary [...] N 112.0 Candidiasis Oral Thrush 04/26/2009 MADL NURSE ORTHO, ANSON L 112.0 Candidiasis Oral Thrush 04/26/2009 MADL NURSE ORTHO, ANSON L 112.0 Candidiasis Oral Thrush 04/26/2009 [...] WADE APRN 597.80 Urethritis, Unspecified 09/05/2009 LOBATO NURSE ORTHO, BRENNA R 597.80 Urethritis, Unspecified 09/05/2009 SAI PARISH, CARMEN N 597.80 Urethritis, Unspecified 09/05/2009 ROLON DO, EMIL K 597.80 Urethritis, Unspecified 09/05/2009 MICHELINE NURSE ORTHO, RAQUEL R 597.80 Urethritis, Unspecified 09/05/2009 SAI PARISH, CARMEN N 597.80 Urethritis, Unspecified 09/05/2009 CRISTINO LOBATO APRNIA R 597.80 Urethritis, Unspecified 09/05/2009 MICHELINE NURSE ORTHO, RAQUEL R 597.80 Urethritis, Unspecified 09/05/2009 SAI PARISH, CARMEN N 597.80 Urethritis, Unspecified 09/05/2009 MADL NURSE ORTHO, ANSON L 597.80 Urethritis, Unspecified 09/05/2009 MADL NURSE ORTHO, ANSON L 597.80 Urethritis, Unspecified 09/05/2009 MICHELINE NURSE ORTHO, RAQUEL R 597.80 Urethritis, Unspecified 09/05/2009 JOSH VILLAVICENCIO, ELLIOT Alston 597.80 Urethritis, Unspecified 09/05/2009 SAI PARISH, CARMEN N 597.80 Urethritis, Unspecified 09/05/2009 GONZALES GAMING, EMIL K 597.80 Urethritis, Unspecified 09/05/2009 MADBenji NURSE ORTHO, ANSON L 597.80 Urethritis, Unspecified 09/05/2009 SAI [place], CARMEN N 597.80 Urethritis, Unspecified 09/05/2009 SAI PARISH, CARMEN N 597.80 Urethritis, Unspecified 09/05/2009 MADL NURSE ORTHO, ANSON L 597.80 Urethritis, Unspecified 09/05/2009 ROLON [...] Pain In Joint, Lower Leg 09/24/2009 MADL NURSE ORTHO, ANSON L 719.46 Pain In Joint, Lower Leg 09/24/2009 MADL NURSE ORTHO, ANSON L 719.46 Pain In Joint, Lower [...] GIBBS MD N 704.8 Folliculitis 12/20/2009 BRENNA LBOATO APRN R 704.8 Folliculitis 12/20/2009 MICHELINE BAUMANN, RAQUEL R 704.8 Folliculitis 12/20/2009 CARMEN GIBBS MD N 704.8 Folliculitis 12/20/2009 MADBenji NURSE ORTHO, ANSON L 704.8 Folliculitis 12/20/2009 JOSE FRANCISCOL [...] N 709.9 Dermatology - Non-infectious 02/03/2010 MADL NURSE ORTHO, ANSON L 709.9 Dermatology - Non-infectious 02/03/2010 MADL NURSE ORTHO, ANSON L 709.9 Dermatology - Non-infectious 02/03/2010 MICHELINE NURSE ORTHO, RAQUEL R 709.9 Dermatology - Non-infectious 02/03/2010 JOSH JETERS, ELLIOT J 709.9 Dermatology - Non-infectious 02/03/2010 SAI PARISH, CARMEN N 709.9 Dermatology - Non-infectious 02/03/2010 ROLON , EMIL K 709.9 Dermatology - Non-infectious 02/03/2010 MADBenji NURSE ORTHO, ANSON L 709.9 Dermatology - Non-infectious 02/03/2010 SAI PARISH, CARMEN N 709.9 Dermatology - Non-infectious 02/03/2010 SAI PARISH, CARMEN N 709.9 Dermatology - Non-infectious 02/03/2010 SHERI NURSE ORTHO, ANSON L 709.9 Dermatology - Non-infectious 02/03/2010 [...] BAUMANN, BRENNA R 276.5 DEHYDRATION 02/08/2010 MADL NURSE ORTHO, ANSON L 276.5 DEHYDRATION 02/08/2010 LUIS ALFREDO BAUMANN, BRENNA R 276.5 DEHYDRATION 02/08/2010 CARMEN GIBBS MD N 276.5 DEHYDRATION 02/08/2010 ROLON DO, EMIL K 276.5 DEHYDRATION 02/08/2010 MICHELINE BAUMANN, RAQUEL R 276.5 DEHYDRATION 02/08/2010 CARMEN GIBBS MD N 276.5 DEHYDRATION 02/08/2010 CRISTINO LOBATO APRNIA R 276.5 DEHYDRATION 02/08/2010 MICHELINE BAUMANN, RAQUEL R 276.5 DEHYDRATION 02/08/2010 CARMEN GIBBS MD N 276.5 DEHYDRATION 02/08/2010 SHERI NURSE ORTHO, ANSON L 276.5 DEHYDRATION 02/08/2010 MADBenji NURSE ORTHO, ANSON L 276.5 DEHYDRATION 02/08/2010 MICHELINE NURSE ORTHO, RAQUEL R 276.5 DEHYDRATION 02/08/2010 ELLIOT MORENO [...] EMIL K 788.31 Urge Incontinence 05/22/2010 MICHELINE NURSE ORTHO, RAQUEL R 788.31 Urge Incontinence 05/22/2010 CARMEN GIBBS MD N 788.31 Urge Incontinence 05/22/2010 CRISTINO LOBATO APRNIA R 788.31 Urge Incontinence 05/22/2010 MICHELINE NURSE ORTHO, RAQUEL R 788.31 Urge Incontinence 05/22/2010 CARMEN GIBBS MD N 788.31 Urge Incontinence 05/22/2010 MADL NURSE ORTHO, ANSON L 788.31 Urge Incontinence 05/22/2010 MADL NURSE ORTHO, ANSON L 788.31 Urge Incontinence 05/22/2010 MICHELINE BAUMANN, RAQUEL R 788.31 Urge Incontinence 05/22/2010 JOSH VILLAVICENCIO, ELILOT Alston 788.31 Urge Incontinence 05/22/2010 CARMEN GIBBS [...] MD N 706.8 Xerosis 08/22/2010 JESSICA DDS, RAQULE Galdamez 272.4 HYPERLIPIDEMIA 08/22/2010 JESSICA JETERS, RAQUEL [...] DO, EMIL K 706.8 Xerosis 08/22/2010 KIM NURSE ORTHO, OSMAN T 272.4 HYPERLIPIDEMIA 08/22/2010 KIM NURSE ORTHO OSMAN T 706.8 Xerosis 08/22/2010 ROLON DO, EMIL K 272.4 HYPERLIPIDEMIA 08/22/2010 ROLON DO, EMIL K 706.8 Xerosis 08/22/2010 ROLON DO, EMIL K 272.4 HYPERLIPIDEMIA 08/22/2010 ROLON DO, EMIL K 706.8 Xerosis 08/22/2010 LUIS ALFREDO NURSE ORTHO, BRENNA R 272.4 HYPERLIPIDEMIA 08/22/2010 LOBATO NURSE ORTHO, BRENNA R 706.8 Xerosis 08/22/2010 MADL NURSE ORTHO, ANSON L 272.4 HYPERLIPIDEMIA 08/22/2010 MADL NURSE ORTHO, ANSON L 706.8 Xerosis 08/22/2010 LUIS ALFREDO [...] GIBBS MD N 706.8 Xerosis 08/22/2010 MADL NURSE ORTHO, ANSON L 272.4 HYPERLIPIDEMIA 08/22/2010 MADL NURSE ORTHO, ANSON L 706.8 Xerosis 08/22/2010 MADL NURSE ORTHO, ANSON L 272.4 HYPERLIPIDEMIA 08/22/2010 MADL NURSE ORTHO, ANSON L 706.8 Xerosis 08/22/2010 MICHELINE NURSE ORTHO, RAQUEL R 272.4 HYPERLIPIDEMIA 08/22/2010 MICHELINE NURSE ORTHO, RAQUEL R 706.8 Xerosis 08/22/2010 WHITE DDS, ELLIOT J 272.4 HYPERLIPIDEMIA 08/22/2010 WHITE DDS, ELLIOT J 706.8 Xerosis 08/22/2010 CARMEN GIBBS MD N 272.4 HYPERLIPIDEMIA 08/22/2010 CARMEN GIBBS MD N 706.8 Xerosis 08/22/2010 ROLON DO, EMIL K 272.4 HYPERLIPIDEMIA 08/22/2010 ROLON DO, EMIL K 706.8 Xerosis 08/22/2010 MADL NURSE ORTHO, ANSON L 272.4 HYPERLIPIDEMIA 08/22/2010 MADL NURSE ORTHO, ANSON L 706.8 Xerosis 08/22/2010 CARMEN GIBBS MD N 272.4 HYPERLIPIDEMIA 08/22/2010 CARMEN GIBBS MD N 706.8 Xerosis 08/22/2010 CARMEN GIBBS MD N 272.4 HYPERLIPIDEMIA 08/22/2010 CARMEN GIBBS MD N 706.8 [facility] L 272.4 HYPERLIPIDEMIA 08/22/2010 MADL NURSE ORTHO, ANSON L 706.8 Xerosis 08/22/2010 ROLON DO, [...] BRENNA R 577.1 CHRONIC PANCREATITIS 09/28/2010 SHERI NURSE ORTHO, ANSON L 577.1 CHRONIC PANCREATITIS 09/28/2010 LUIS [...] GIBBS MD 577.1 CHRONIC PANCREATITIS 09/28/2010 SHERI NURSE ORTHO, ANSON L 577.1 CHRONIC PANCREATITIS 09/28/2010 JOSE FRANCISCOL NURSE ORTHO, ANSON L 577.1 CHRONIC PANCREATITIS 09/28/2010 MICHELINE [...] 789.01 Abdominal Pain Right Upper Quadrant 12/27/2010 ROOLN DO, EMIL K 599.70 Hematuria Unspecified 12/27/2010 ROLON DO, EMIL K 789.01 Abdominal Pain Right Upper Quadrant 12/27/2010 ROLON DO, EMIL K 599.70 Hematuria Unspecified 12/27/2010 ROLON DO, EMIL K 789.01 Abdominal Pain Right Upper Quadrant 12/27/2010 OSMAN ALVAREZ APRN T 599.70 Hematuria Unspecified 12/27/2010 OSAMN ALVAREZ APRN 789.01 Abdominal Pain Right Upper [...] Abdominal Pain Right Upper Quadrant 12/27/2010 SHERI NURSE ORTHO, ANSON L 599.70 Hematuria Unspecified 12/27/2010 MADBenji NURSE ORTHO, ANSON L 789.01 Abdominal Pain Right Upper Quadrant 12/27/2010 SHERI BAUMANN, ANSON L 599.70 Hematuria Unspecified 12/27/2010 SHERI NURSE ORTHO, ANSON L 789.01 Abdominal Pain Right Upper [...] APRNWNYA L 599.70 Hematuria Unspecified 12/27/2010 MADL NURSE ORTHO, ANSON L 789.01 Abdominal Pain Right Upper Quadrant 12/27/2010 CARMEN GIBBS MD N 599.70 Hematuria Unspecified 12/27/2010 CARMEN GIBBS MD N 789.01 Abdominal Pain Right Upper Quadrant 12/27/2010 CARMEN GIBBS MD N 599.70 Hematuria Unspecified 12/27/2010 CARMEN GIBBS MD 789.01 Abdominal Pain Right Upper Quadrant 12/27/2010 MADL NURSE ORTHO, ANSON L 599.70 Hematuria Unspecified 12/27/2010 MADL NURSE ORTHO, ANSON L 789.01 Abdominal Pain Right Upper [...] GIBBS MD 786.52 Chest Wall Pain 01/11/2011 ACRMEN GIBBS MD 786.52 Chest Wall Pain 01/11/2011 [...] R 786.52 Chest Wall Pain 01/11/2011 MADL NURSE ORTHO, ANSON L 786.52 Chest Wall Pain 01/11/2011 [...] MD 786.52 Chest Wall Pain 01/11/2011 SHERI NURSE ORTHO, ANSON L 786.52 Chest Wall Pain 01/11/2011 SHERI NURSE ORTHO, ANSON L 786.52 Chest Wall Pain 01/11/2011 MICHELINE BAUMANN RAQUEL R 786.52 Chest Wall Pain 01/11/2011 WHITE DDS, ELLIOT J 786.52 Chest Wall Pain 01/11/2011 CARMEN GIBBS MD 786.52 Chest Wall Pain 01/11/2011 ROLON DO, EMIL K 786.52 Chest Wall Pain 01/11/2011 MADBenji NURSE ORTHO, ANSON L 786.52 Chest Wall Pain 01/11/2011 CARMEN GIBBS MD 786.52 Chest Wall Pain 01/11/2011 CARMEN GIBBS MD 786.52 Chest Wall Pain 01/11/2011 MADL NURSE ORTHO, ANSON L 786.52 Chest Wall Pain 01/11/2011 [...] APRNIA R 780.52 INSOMNIA UNSPECIFIED 01/15/2011 MADBenji NURSE ORTHOLETICIA ChristieA L 564.00 Constipation 01/15/2011 JOSE FRANCISCO NURSE ORTHO, ANSON L 780.52 INSOMNIA UNSPECIFIED 01/15/2011 CRISTINO [...] GIBBS MD 780.52 INSOMNIA UNSPECIFIED 01/15/2011 MADL NURSE ORTHO, ANSON L 564.00 Constipation 01/15/2011 MADL NURSE ORTHO, ANSON L 780.52 INSOMNIA UNSPECIFIED 01/15/2011 MADL NURSE ORTHO, ANSON L 564.00 Constipation 01/15/2011 MADL NURSE ORTHO, ANSON L 780.52 INSOMNIA UNSPECIFIED 01/15/2011 MICHELINE NURSE ORTHO, RAQUEL R 564.00 Constipation 01/15/2011 MICHELINE NURSE ORTHO, RAQUEL R 780.52 INSOMNIA UNSPECIFIED 01/15/2011 WHITE DDS, ELLIOT J 564.00 Constipation 01/15/2011 WHITE DDS, ELLIOT J 780.52 INSOMNIA UNSPECIFIED 01/15/2011 CARMEN GIBBS MD N 564.00 Constipation 01/15/2011 CARMEN GIBBS MD 780.52 INSOMNIA UNSPECIFIED 01/15/2011 SUDHIR ROLON DOA K 564.00 Constipation 01/15/2011 SUDHIR ROLON DOA K 780.52 INSOMNIA UNSPECIFIED 01/15/2011 MADL NURSE ORTHO, ANSON L 564.00 Constipation 01/15/2011 MADL NURSE ORTHO, ANSON L 780.52 INSOMNIA UNSPECIFIED 01/15/2011 CARMEN GIBBS MD N 564.00 Constipation 01/15/2011 CARMEN GIBBS MD 780.52 INSOMNIA UNSPECIFIED 01/15/2011 CARMEN GIBBS MD N 564.00 Constipation 01/15/2011 CARMEN GIBBS MD 780.52 INSOMNIA UNSPECIFIED 01/15/2011 MADL NURSE ORTHO, ANSON L 564.00 Constipation 01/15/2011 MADL NURSE ORTHO, ANSON L 780.52 INSOMNIA UNSPECIFIED 01/15/2011 ROLON DO EMIL K 564.00 Constipation 01/15/2011 ROLON DO EMIL K 780.52 INSOMNIA UNSPECIFIED 02/02/2011 MUOGHALU DDS, REGINO N 401.1 HYPERTENSION, BENIGN ESSENTIAL 02/02/2011 BONITAU DDSREGINO N V17.49 FAM HX HYPERTENSION 02/02/2011 401.1 HYPERTENSION, BENIGN ESSENTIAL 02/02/2011 V17.49 FAM HX HYPERTENSION 02/02/2011 LOBATO NURSE ORTHO, BRENNA R 401.1 HYPERTENSION, BENIGN ESSENTIAL 02/02/2011 [...] R V17.49 FAM HX HYPERTENSION 02/02/2011 MADL NURSE ORTHO, ANSON L 401.1 HYPERTENSION, BENIGN ESSENTIAL 02/02/2011 [...] MD V17.49 FAM HX HYPERTENSION 02/02/2011 MADL NURSE ORTHO, ANSON L 401.1 HYPERTENSION, BENIGN ESSENTIAL 02/02/2011 MADL NURSE ORTHO, ANSON L V17.49 FAM HX HYPERTENSION 02/02/2011 MADL NURSE ORTHO, ANSON L 401.1 HYPERTENSION, BENIGN ESSENTIAL 02/02/2011 MADL NURSE ORTHO, ANSON L V17.49 FAM HX HYPERTENSION 02/02/2011 MICHELINE NURSE ORTHO, RAQUEL R 401.1 HYPERTENSION, BENIGN ESSENTIAL 02/02/2011 MICHELINE NURSE ORTHO, RAQUEL R V17.49 FAM HX HYPERTENSION 02/02/2011 [...] HX [facility]02[facility] ANSON L 401.1 HYPERTENSION, BENIGN ESSENTIAL 02/02/2011 [facility] NURSE ORTHO, ANSON L V17.49 FAM HX HYPERTENSION 02/02/2011 CARMEN GIBBS MD N 401.1 HYPERTENSION, BENIGN ESSENTIAL 02/02/2011 CARMEN GIBBS MD N V17.49 FAM HX HYPERTENSION 02/02/2011 CARMEN GIBBS MD N 401.1 HYPERTENSION, BENIGN ESSENTIAL 02/02/2011 CARMEN GIBBS MD N V17.49 FAM HX HYPERTENSION 02/02/2011 [facility] NURSE ORTHO, ANSON L 401.1 HYPERTENSION, BENIGN ESSENTIAL 02/02/2011 [facility] NURSE ORTHO, ANSON L V17.49 FAM HX HYPERTENSION 02/02/2011 [...] 386.11 Vertigo- Benign Paroxysmal Positional 03/28/2011 MADL NURSE ORTHO, ANSON L 386.11 Vertigo- Benign Paroxysmal Positional 03/28/2011 MADL NURSE ORTHO, ANSON L 386.11 Vertigo- Benign Paroxysmal Positional 03/28/2011 MICHELINE BAUMANN RAQUEL R 386.11 Vertigo- Benign Paroxysmal Positional 03/28/2011 JOSH VILLAVICENCIO, ELLIOT J 386.11 Vertigo- Benign Paroxysmal Positional 03/28/2011 CARMEN GIBBS MD N 386.11 Vertigo- Benign Paroxysmal Positional 03/28/2011 ROLON DO, EMIL K 386.11 Vertigo- Benign Paroxysmal Positional 03/28/2011 MADL NURSE ORTHO, ANSON L 386.11 Vertigo- Benign Paroxysmal Positional 03/28/2011 CARMEN GIBBS MD N 386.11 Vertigo- Benign Paroxysmal Positional 03/28/2011 CARMEN GIBBS MD N 386.11 Vertigo- Benign Paroxysmal Positional 03/28/2011 MADL NURSE ORTHO, ANSON L 386.11 Vertigo- Benign Paroxysmal Positional [...] Dx (3 Yrs And Above, Im) 04/12/2011 BRNENA LOBATO APRN R 892.0 Open Wound Of [...] Foot Except Toe(s) Alone Without Complication 04/12/2011 RLOON DO, EMIL K 917.8 Other And Unspecified Superficial Injury Of Foot And Toes Without Infection 04/12/2011 ROLON DO, EMIL K V04.81 Flu Dx (3 Yrs And Above, Im) 04/12/2011 LOBATO NURSE ORTHO, BRENNA R 892.0 Open Wound Of Foot Except Toe(s) Alone Without Complication 04/12/2011 LOBATO NURSE ORTHO, BRENNA R 917.8 Other And Unspecified Superficial Injury Of Foot And Toes Without Infection 04/12/2011 LOBATO NURSE ORTHO, BRENNA R V04.81 Flu Dx (3 Yrs And Above, Im) 04/12/2011 MADL NURSE ORTHO, ANSON L 892.0 Open Wound Of Foot Except Toe(s) Alone Without Complication 04/12/2011 MADL NURSE ORTHO, ANSON L 917.8 Other And Unspecified Superficial Injury Of Foot And Toes Without Infection 04/12/2011 MADL NURSE ORTHO, ANSON L V04.81 Flu Dx (3 Yrs And Above, Im) 04/12/2011 LOBATO NURSE ORTHO, BRENNA R 892.0 Open Wound Of Foot Except Toe(s) Alone Without Complication 04/12/2011 LOBATO NURSE ORTHO, BRENNA R 917.8 Other And Unspecified Superficial Injury Of Foot And Toes Without Infection 04/12/2011 LUIS ALFREDO NURSE ORTHO, BRENNA R V04.81 Flu Dx (3 Yrs [...] Foot And Toes Without Infection 04/12/2011 MICHELINE NURSE ORTHO, RAQUEL R V04.81 Flu Dx (3 Yrs And Above, Im) 04/12/2011 CARMEN GIBBS MD N 892.0 Open Wound Of Foot Except Toe(s) Alone Without Complication 04/12/2011 CARMEN GIBBS MD N 917.8 Other And Unspecified Superficial Injury Of Foot And Toes Without Infection 04/12/2011 CARMEN GIBBS MD V04.81 Flu Dx (3 Yrs And Above, Im) 04/12/2011 MADL NURSE ORTHO, ANSON L 892.0 Open Wound Of Foot Except Toe(s) Alone Without Complication 04/12/2011 MADL NURSE ORTHO, ANSON L 917.8 Other And Unspecified Superficial Injury Of Foot And Toes Without Infection 04/12/2011 MADL NURSE ORTHO, ANSON L V04.81 Flu Dx (3 Yrs And Above, Im) 04/12/2011 MADL NURSE ORTHO, ANSON L 892.0 Open Wound Of Foot Except Toe(s) Alone Without Complication 04/12/2011 MADL NURSE ORTHO, ANSON L 917.8 Other And Unspecified Superficial Injury Of Foot And Toes Without Infection 04/12/2011 MADL NURSE ORTHO, ANSON L V04.81 Flu Dx (3 Yrs And Above, Im) 04/12/2011 MICHELINE NURSE ORTHO, RAQUEL R 892.0 Open Wound Of Foot Except Toe(s) Alone Without Complication 04/12/2011 MICHELINE NURSE ORTHO, RAQUEL R 917.8 Other And Unspecified Superficial [...] (3 Yrs And Above, Im) 04/12/2011 MADL NURSE ORTHO, ANSON L 892.0 Open Wound Of Foot Except Toe(s) Alone Without Complication 04/12/2011 MADL NURSE ORTHO, ANSON L 917.8 Other And Unspecified Superficial Injury Of Foot And Toes Without Infection 04/12/2011 MADL NURSE ORTHO, ANSON L V04.81 Flu Dx (3 Yrs [...] (3 Yrs And Above, Im) 04/12/2011 MADBenji NURSE ORTHO, ANSON L 892.0 Open Wound Of Foot Except Toe(s) Alone Without Complication 04/12/2011 MADBenji NURSE ORTHO, ANSON L 917.8 Other And Unspecified Superficial Injury Of Foot And Toes Without Infection 04/12/2011 MADL NURSE ORTHO, ANSON L V04.81 Flu Dx (3 Yrs [...] 477.9 ALLERGIC RHINITIS CAUSE UNSPECIFIED 04/13/2011 MADL NURSE ORTHO, ANSON L 477.9 ALLERGIC RHINITIS CAUSE UNSPECIFIED 04/13/2011 MADL NURSE ORTHO ANSON L 477.9 ALLERGIC RHINITIS CAUSE UNSPECIFIED [...] 789.00 Abdominal Pain Unspecified Site 04/17/2011 LOBATO NURSE ORTHO, BRENNA R 599.0 Urinary Tract Infection 04/17/2011 LOBATO NURSE ORTHO, BRENNA R 789.00 Abdominal Pain Unspecified Site [...] APRN 599.0 Urinary Tract Infection 04/17/2011 KIM NURSE ORTHO, OSMAN T 789.00 Abdominal Pain Unspecified Site [...] 789.00 Abdominal Pain Unspecified Site 04/17/2011 MADL NURSE ORTHO, ANSON L 599.0 Urinary Tract Infection 04/17/2011 MADL NURSE ORTHO, ANSON L 789.00 Abdominal Pain Unspecified Site [...] 789.00 Abdominal Pain Unspecified Site 04/17/2011 MADL NURSE ORTHO, ANSON L 599.0 Urinary Tract Infection 04/17/2011 MADL NURSE ORTHO, ANSON L 789.00 Abdominal Pain Unspecified Site 04/17/2011 MADL NURSE ORTHO, ANSON L 599.0 Urinary Tract Infection 04/17/2011 MADL NURSE ORTHO, ANSON L 789.00 Abdominal Pain Unspecified Site 04/17/2011 MICHELINE NURSE ORTHO, RAQUEL R 599.0 Urinary Tract Infection 04/17/2011 MICHELINE NURSE ORTHO, RAQUEL R 789.00 Abdominal Pain Unspecified Site [...] 789.00 Abdominal Pain Unspecified Site 04/17/2011 MADL NURSE ORTHO, ANSON L 599.0 Urinary Tract Infection 04/17/2011 MADL NURSE ORTHO, ANSON L 789.00 Abdominal Pain Unspecified Site 04/17/2011 CARMEN GIBBS MD N 599.0 Urinary Tract Infection 04/17/2011 CARMEN GIBBS MD N 789.00 Abdominal Pain Unspecified Site 04/17/2011 CARMEN GIBBS MD N 599.0 Urinary Tract Infection 04/17/2011 CARMEN GIBBS MD N 789.00 Abdominal Pain Unspecified Site 04/17/2011 MADL NURSE ORTHO, ANSON L 599.0 Urinary Tract Infection 04/17/2011 MADL NURSE ORTHO, ANSON L 789.00 Abdominal Pain Unspecified Site 04/17/2011 ROLON DO, EMIL K 599.0 Urinary Tract Infection 04/17/2011 ROLON DO, EMIL K 789.00 Abdominal Pain Unspecified Site 05/01/2011 DEB JETERS, REGINO N 625.9 Pelvic Pain 05/01/2011 625.9 Pelvic Pain 05/01/2011 LOBATO NURSE ORTHO, BRENNA R 625.9 Pelvic Pain 05/01/2011 ROLON [...] K 625.9 Pelvic Pain 05/01/2011 LUIS ALFREDO NURSE ORTHO, BRENNA R 625.9 Pelvic Pain 05/01/2011 JOSE FRANCISCOL NURSE ORTHO, ANSON L 625.9 Pelvic Pain 05/01/2011 LUIS ALFREDO YUN, BRENNA R 625.9 Pelvic Pain 05/01/2011 CARMEN GIBBS MD N 625.9 Pelvic Pain 05/01/2011 ROLON DO, EMIL K 625.9 Pelvic Pain 05/01/2011 MICHELINE NURSE ORTHO, RAQUEL R 625.9 Pelvic Pain 05/01/2011 CARMEN GIBBS MD N 625.9 Pelvic Pain 05/01/2011 LOBATO NURSE ORTHO, BRENNA R 625.9 Pelvic Pain 05/01/2011 MICHELINE YUN, RAQUEL R 625.9 Pelvic Pain 05/01/2011 CARMEN GIBBS MD N 625.9 Pelvic Pain 05/01/2011 MADL NURSE ORTHO, ANSON L 625.9 Pelvic Pain 05/01/2011 MADL NURSE ORTHO, ANSON L 625.9 Pelvic Pain 05/01/2011 MICHELINE [...] 786.50 Chest Pain Or Discomfort 05/30/2011 MADL NURSE ORTHO, ANSON L 786.50 Chest Pain Or Discomfort [...] WADE APRN 789.06 ABDOMINAL PAIN EPIGASTRIC 09/11/2011 EMLI ROLON DO 789.06 ABDOMINAL PAIN EPIGASTRIC 09/28/2011 MUOGHALArturo JETERSREGINO 789.00 abdominal pain 09/28/2011 MUOGHALU STEFFANYS, REGINO Christie V68.1 Issue Of Repeat Prescriptions 09/28/2011 789.00 abdominal pain 09/28/2011 V68.1 Issue Of Repeat Prescriptions 09/28/2011 BRENNA LOBATO APRN 789.00 abdominal pain 09/28/2011 BRENNA OLBATO APRN V68.1 Issue Of Repeat Prescriptions 09/28/2011 [...] 11/05/2011 V74.5 Std Screen 11/05/2011 LUIS ALFREDO NURSE ORTHO, BRENNA R 685.1 Pilonidal Cyst Without Abscess 11/05/2011 LUIS ALFREDO NURSE ORTHO, BRENNA R V25.09 CONTRACEPTIVE COUNSELING - GENERAL 11/05/2011 LUIS ALFREDO NURSE ORTHO, BRENNA R V65.3 COUNSELING - DIETARY 11/05/2011 [...] 685.1 Pilonidal Cyst Without Abscess 11/05/2011 ELLY DOUGLSA MD V25.09 CONTRACEPTIVE COUNSELING - GENERAL 11/05/2011 [...] R V65.3 COUNSELING - DIETARY 11/05/2011 BRENNA LOBAOT APRN R V65.41 EXERCISE COUNSELING 11/05/2011 BRENNA [...] V65.3 COUNSELING - DIETARY 11/05/2011 JOSE FRANCISCOBenji NURSE ORTHOLETICIA ChristieA L V65.41 EXERCISE COUNSELING 11/05/2011 JOSE FRANCISCOBenji NURSE ORTHOLETICIA ChristieA L V74.5 Std Screen 11/05/2011 MALACHI [...] EMIL K V74.5 Std Screen 11/05/2011 MADL NURSE ORTHO, ANSON L 685.1 Pilonidal Cyst Without Abscess 11/05/2011 MADL NURSE ORTHO, ANSON L V25.09 CONTRACEPTIVE COUNSELING - GENERAL 11/05/2011 MADL NURSE ORTHO, ANSON L V65.3 COUNSELING - DIETARY 11/05/2011 MADL NURSE ORTHO, ANSON L V65.41 EXERCISE COUNSELING 11/05/2011 JOSE FRANCISCOL NURSE ORTHO, ANSON L V74.5 Std Screen 11/05/2011 CARMEN [...] GIBBS MD V74.5 Std Screen 11/05/2011 MADL NURSE ORTHO, ANSON L 685.1 Pilonidal Cyst Without Abscess 11/05/2011 MADL NURSE ORTHO, ANSON L V25.09 CONTRACEPTIVE COUNSELING - GENERAL 11/05/2011 MADL NURSE ORTHO, ANSON L V65.3 COUNSELING - DIETARY 11/05/2011 MADL NURSE ORTHO, ANSON L V65.41 EXERCISE COUNSELING 11/05/2011 MADL NURSE ORTHO, ANSON L V74.5 Std Screen 11/05/2011 ROLON [...] EMIL K 078.11 Condyloma Acuminatum 01/21/2012 LOBATO NURSE ORTHO, BRENNA R 078.11 Condyloma Acuminatum 01/21/2012 SHERI NURSE ORTHO, ANSON L 078.11 Condyloma Acuminatum 01/21/2012 LUIS [...] LOBATO APRN R 388.70 Otalgia 03/18/2012 MICHELINE NURSE ORTHO, RAQUEL R 388.70 Otalgia 03/18/2012 CARMEN GIBBS MD 388.70 Otalgia 03/18/2012 MADL NURSE ORTHO, ANSON L 388.70 Otalgia 03/18/2012 MADL NURSE ORTHO, ANSON L 388.70 Otalgia 03/18/2012 MICHELINE BAUMANN, RAQUEL R 388.70 Otalgia 03/18/2012 ELLIOT MORENO DDS 388.70 Otalgia 03/18/2012 CARMEN GIBBS MD 388.70 Otalgia 03/18/2012 EMIL ROLON DO 388.70 Otalgia 03/18/2012 MADBenji NURSE ORTHO, ANSON L 388.70 Otalgia 03/18/2012 CARMEN GIBBS MD 388.70 Otalgia 03/18/2012 CARMEN GIBBS MD 388.70 Otalgia 03/18/2012 MADBenji NURSE ORTHO, ANSON L 388.70 Otalgia 03/18/2012 EMIL ROLON [...] Joint Involving Ankle And Foot 03/20/2012 EMIL ORLON DO 719.47 Pain In Joint Involving Ankle [...] Neoplasm Of Skin Site Unspecified 05/05/2012 MADL NURSE ORTHO, ANSON L 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 05/05/2012 MADL NURSE ORTHO, ANSON L 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 05/05/2012 MICHELINE NURSE ORTHO, RAQUEL R 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 05/05/2012 JOSH VILLAVICENCOI, ELLIOT Alston 216.9 Benign Neoplasm Of Skin [...] Of Uncertain Behavior Of Skin 05/19/2012 MICHELINE NURSE ORTHO, RAQUEL R V58.32 Suture Removal 05/19/2012 CARMEN GIBBS MD N 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 05/19/2012 CARMEN GIBBS MD N V58.32 Suture Removal 05/19/2012 LUIS ALFREDO NURSE ORTHO, BRENNA R 238.2 Neoplasm Of Uncertain Behavior [...] Of Uncertain Behavior Of Skin 05/19/2012 MADL NURSE ORTHO, ANSON L V58.32 Suture Removal 05/19/2012 JOSE [...] BAUMANN, BRENNA R 704.1 HIRSUTISM 07/02/2012 SHERI NURSE ORTHO, ANSON L 704.1 HIRSUTISM 07/02/2012 LUIS ALFREDO [...] GIBBS MD N 786.2 COUGH 07/07/2012 KIM NURSE ORTHO, OSMAN T 786.2 COUGH 07/07/2012 ROLON DO, EMIL K 786.2 COUGH 07/07/2012 ROLON DO, EMIL K 786.2 COUGH 07/07/2012 ROLON DO, EMIL K 786.2 COUGH 07/07/2012 KIM NURSE ORTHO, OSMAN T 786.2 COUGH 07/07/2012 ROLON DO, EMIL K 786.2 COUGH 07/07/2012 ROLON DO, EMIL K 786.2 COUGH 07/07/2012 LUIS ALFREDO BAUMANN, BRENNA R 786.2 COUGH 07/07/2012 SHERI NURSE ORTHO, ANSON L 786.2 COUGH 07/07/2012 LUIS ALFREDO [...] GIBBS MD N 786.2 COUGH 07/07/2012 SHERI NURSE ORTHO, ANSON L 786.2 COUGH 07/07/2012 SHERI NURSE ORTHO, ANSON L 786.2 COUGH 07/07/2012 MICHELINE BAUMANN, RAQUEL R 786.2 COUGH 07/07/2012 JOSH VILLAVICENCIO, ELLIOT Alston 786.2 COUGH 07/07/2012 CARMEN GIBBS MD N 786.2 COUGH 07/07/2012 SHERI NURSE ORTHO, ANSON L 786.2 COUGH 07/07/2012 CARMEN GIBBS [...] DO EMIL K 112.1 CANDIDIASIS VAGINAL 08/20/2012 KMI NURSE ORTHO, OSMAN T 054.9 HERPES SIMPLEX WITHOUT COMPLICATION [...] HERPES SIMPLEX WITHOUT COMPLICATION 08/20/2012 LUIS ALFREDO NURSE ORTHO, BRENNA R 112.1 CANDIDIASIS VAGINAL 08/20/2012 SHERI NURSE ORTHO, ANSON L 054.9 HERPES SIMPLEX WITHOUT COMPLICATION 08/20/2012 SHERI NURSE ORTHO, ANSON L 112.1 CANDIDIASIS VAGINAL 08/20/2012 LUIS ALFREDO YUN, BRENNA R 054.9 HERPES SIMPLEX WITHOUT COMPLICATION 08/20/2012 LUIS ALFREDO YUN, BRENNA R 112.1 CANDIDIASIS VAGINAL 08/20/2012 CARMEN GIBBS MD N 054.9 HERPES SIMPLEX WITHOUT COMPLICATION 08/20/2012 CARMEN GIBBS MD N 112.1 CANDIDIASIS VAGINAL 08/20/2012 RLOON DO, EMIL K 054.9 HERPES SIMPLEX WITHOUT [...] 054.9 HERPES SIMPLEX WITHOUT COMPLICATION 08/20/2012 MICHELINE UYN, RAQUEL R 112.1 CANDIDIASIS VAGINAL 08/20/2012 CARMEN GIBBS MD N 054.9 HERPES SIMPLEX WITHOUT COMPLICATION 08/20/2012 CARMEN GIBBS MD N 112.1 CANDIDIASIS VAGINAL 08/20/2012 SHERI BAUMANN, ANSON L 054.9 HERPES SIMPLEX WITHOUT COMPLICATION 08/20/2012 MAD NURSE ORTHO, ANSON L 112.1 CANDIDIASIS VAGINAL 08/20/2012 [facility] NURSE ORTHO, ANSON L 054.9 HERPES SIMPLEX WITHOUT COMPLICATION 08/20/2012 MAD NURSE ORTHO, ANSON L 112.1 CANDIDIASIS VAGINAL 08/20/2012 MICHELINE NURSE ORTHO, RAQUEL R 054.9 HERPES SIMPLEX WITHOUT COMPLICATION 08/20/2012 MICHELINE NURSE ORTHO, RAQUEL R 112.1 CANDIDIASIS VAGINAL 08/20/2012 WHITE DDS, ELLIOT J 054.9 HERPES SIMPLEX WITHOUT COMPLICATION 08/20/2012 WHITE DDS, ELLIOT J 112.1 CANDIDIASIS VAGINAL 08/20/2012 CARMEN GIBBS MD N 054.9 HERPES SIMPLEX WITHOUT COMPLICATION 08/20/2012 CARMEN GIBBS MD N 112.1 CANDIDIASIS VAGINAL 08/20/2012 [facility] NURSE ORTHO, ANSON L 054.9 HERPES SIMPLEX WITHOUT COMPLICATION 08/20/2012 [facility] NURSE ORTHO, ANSON L 112.1 CANDIDIASIS VAGINAL 08/20/2012 CARMEN GIBBS MD N 054.9 HERPES SIMPLEX WITHOUT COMPLICATION 08/20/2012 CARMEN GIBBS MD N 112.1 CANDIDIASIS VAGINAL 08/20/2012 CARMEN GIBBS MD N 054.9 HERPES SIMPLEX WITHOUT COMPLICATION 08/20/2012 CARMEN GIBBS MD N 112.1 CANDIDIASIS VAGINAL 08/20/2012 [facility] NURSE ORTHO, ANSON L 054.9 HERPES SIMPLEX WITHOUT COMPLICATION 08/20/2012 [facility] NURSE ORTHO, ANSON L 112.1 CANDIDIASIS VAGINAL 08/20/2012 EMIL [...] 682.6 CELLULITIS OF LEG 05/11/2013 GEORGES FINN NURSE ORTHO Ot 782.1 NONSPECIF SKIN ERUPT NEC 05/12/2013 [...] GIBBS MD 307.81 TENSION HEADACHE 05/27/2013 MADL NURSE ORTHO, ANSON L 307.81 TENSION HEADACHE 05/27/2013 MADL NURSE ORTHO, ANSON L 307.81 TENSION HEADACHE 05/27/2013 MICHELINE NURSE ORTHO, RAQUEL R 307.81 TENSION HEADACHE 05/27/2013 JOSH VILLAVICENCIO, ELLIOT Alston 307.81 TENSION HEADACHE 05/27/2013 CARMEN GIBBS MD 307.81 TENSION HEADACHE 05/27/2013 MADL NURSE ORTHO, ANSON L 307.81 TENSION HEADACHE 05/27/2013 CARMEN GIBBS MD 307.81 TENSION HEADACHE 05/27/2013 CARMEN GIBBS MD 307.81 TENSION HEADACHE 05/27/2013 MADL NURSE ORTHO, ANSON L 307.81 TENSION HEADACHE 05/27/2013 SUDHIR [...] AND ABSCESS OF UNSPECIFIED SITES 05/29/2013 LOBATO NURSE ORTHO, BRENNA R 682.9 CELLULITIS AND ABSCESS OF UNSPECIFIED SITES 05/29/2013 MADL NURSE ORTHO, ANSON L 682.9 CELLULITIS AND ABSCESS OF UNSPECIFIED SITES 05/29/2013 LOBATO NURSE ORTHO, BRENNA R 682.9 CELLULITIS AND ABSCESS OF UNSPECIFIED SITES 05/29/2013 CARMEN GIBBS MD 682.9 CELLULITIS AND ABSCESS OF UNSPECIFIED SITES 05/29/2013 ROLON DO, EMIL K 682.9 CELLULITIS AND ABSCESS OF UNSPECIFIED SITES 05/29/2013 MICHELINE NURSE ORTHO, RAQUEL R 682.9 CELLULITIS AND ABSCESS OF UNSPECIFIED SITES 05/29/2013 CARMEN GIBBS MD 682.9 CELLULITIS AND ABSCESS OF UNSPECIFIED SITES 05/29/2013 LOBATO NURSE ORTHO, BRENNA R 682.9 CELLULITIS AND ABSCESS OF UNSPECIFIED SITES 05/29/2013 MICHELINE NURSE ORTHO, RAQUEL R 682.9 CELLULITIS AND ABSCESS OF UNSPECIFIED SITES 05/29/2013 CARMEN GIBBS MD N 682.9 CELLULITIS AND ABSCESS OF UNSPECIFIED SITES 05/29/2013 MADL NURSE ORTHO, ANSON L 682.9 CELLULITIS AND ABSCESS OF UNSPECIFIED SITES 05/29/2013 MADL NURSE ORTHO, ANSON L 682.9 CELLULITIS AND ABSCESS OF UNSPECIFIED SITES 05/29/2013 MICHELINE NURSE ORTHO, RAQUEL R 682.9 CELLULITIS AND ABSCESS OF UNSPECIFIED SITES 05/29/2013 JOSH JETERS, ELLIOT Alston 682.9 CELLULITIS AND ABSCESS OF UNSPECIFIED SITES 05/29/2013 CARMEN GIBBS MD N 682.9 CELLULITIS AND ABSCESS OF UNSPECIFIED SITES 05/29/2013 MADL NURSE ORTHO, ANSON L 682.9 CELLULITIS AND ABSCESS OF UNSPECIFIED SITES 05/29/2013 CARMEN GIBBS MD N 682.9 CELLULITIS AND ABSCESS OF UNSPECIFIED SITES 05/29/2013 CARMEN GIBBS MD N 682.9 CELLULITIS AND ABSCESS OF UNSPECIFIED SITES 05/29/2013 MADL NURSE ORTHO, ANSON L 682.9 CELLULITIS AND ABSCESS OF [...] WOUND DRAIN CHANGE/REMOVAL AFTER SURGERY 05/30/2013 MADL NURSE ORTHO, ANSON L V58.49 WOUND DRAIN CHANGE/REMOVAL AFTER SURGERY 05/30/2013 MICHELINE NURSE ORTHO, RAQUEL R V58.49 WOUND DRAIN CHANGE/REMOVAL AFTER SURGERY 05/30/2013 JOSH JETERS, ELLIOT J V58.49 WOUND DRAIN CHANGE/REMOVAL AFTER SURGERY 05/30/2013 CARMEN GIBBS MD V58.49 WOUND DRAIN CHANGE/REMOVAL AFTER SURGERY 05/30/2013 SHERI NURSE ORTHO, ANSON L V58.49 WOUND DRAIN CHANGE/REMOVAL AFTER SURGERY 05/30/2013 CARMEN GIBBS MD V58.49 WOUND DRAIN CHANGE/REMOVAL AFTER SURGERY 05/30/2013 CARMEN GIBBS MD V58.49 WOUND DRAIN CHANGE/REMOVAL AFTER SURGERY 05/30/2013 SHERI NURSE ORTHO, ANSON L V58.49 WOUND DRAIN CHANGE/REMOVAL AFTER SURGERY 05/30/2013 EMIL ROLON DO V58.49 WOUND DRAIN CHANGE/REMOVAL AFTER SURGERY 05/30/2013 KIARA MORRISON Ot 682.6 CELLULITIS OF LEG 06/04/2013 YAN CHAPARRO DO K Ot 682.6 CELLULITIS OF LEG 06/04/2013 AYN CHAPARRO DO Ot V58.31 ENCOUNTER FOR CHANGE [...] THIGH) AND ANKLE WITHOUT COMPLICATION 06/05/2013 KIM NURSE ORTHO OSMAN T 891.0 OPEN WOUND OF KNEE LEG (EXCEPT THIGH) AND ANKLE WITHOUT COMPLICATION 06/05/2013 ROLON DO, EMIL K 891.0 OPEN WOUND OF KNEE LEG (EXCEPT THIGH) AND ANKLE WITHOUT COMPLICATION 06/05/2013 ROLON DO, EMIL K 891.0 OPEN WOUND OF KNEE LEG (EXCEPT THIGH) AND ANKLE WITHOUT COMPLICATION 06/05/2013 LOBATO NURSE ORTHO, BRENNA R 891.0 OPEN WOUND OF KNEE LEG (EXCEPT THIGH) AND ANKLE WITHOUT COMPLICATION 06/05/2013 MADL NURSE ORTHO, ANSON L 891.0 OPEN WOUND OF KNEE LEG (EXCEPT THIGH) AND ANKLE WITHOUT COMPLICATION 06/05/2013 LUIS ALFREDO NURSE ORTHO, BRENNA R 891.0 OPEN WOUND OF KNEE LEG (EXCEPT THIGH) AND ANKLE WITHOUT COMPLICATION 06/05/2013 CARMEN GIBBS MD N 891.0 OPEN WOUND OF KNEE LEG (EXCEPT THIGH) AND ANKLE WITHOUT COMPLICATION 06/05/2013 EMIL ROLON DO K 891.0 OPEN WOUND OF KNEE LEG (EXCEPT THIGH) AND ANKLE WITHOUT COMPLICATION 06/05/2013 MICHELINE NURSE ORTHO, RAQUEL R 891.0 OPEN WOUND OF KNEE LEG (EXCEPT THIGH) AND ANKLE WITHOUT COMPLICATION 06/05/2013 CARMEN GIBBS MD N 891.0 OPEN WOUND OF KNEE LEG (EXCEPT THIGH) AND ANKLE WITHOUT COMPLICATION 06/05/2013 LUIS ALFREDO UYN, BRENNA R 891.0 OPEN WOUND OF KNEE LEG (EXCEPT THIGH) AND ANKLE WITHOUT COMPLICATION 06/05/2013 MICHELINE NURSE ORTHO, RAQUEL R 891.0 OPEN WOUND OF KNEE LEG (EXCEPT THIGH) AND ANKLE WITHOUT COMPLICATION 06/05/2013 CARMEN GIBBS MD N 891.0 OPEN WOUND OF KNEE LEG (EXCEPT THIGH) AND ANKLE WITHOUT COMPLICATION 06/05/2013 MADL NURSE ORTHO, ANSON L 891.0 OPEN WOUND OF KNEE LEG (EXCEPT THIGH) AND ANKLE WITHOUT COMPLICATION 06/05/2013 MADL NURSE ORTHO, ANSON L 891.0 OPEN WOUND OF KNEE LEG (EXCEPT THIGH) AND ANKLE WITHOUT COMPLICATION 06/05/2013 MICHELINE NURSE ORTHO, RAQUEL R 891.0 OPEN WOUND OF KNEE [...] 493.92 ASTHMA WITH ACUTE EXACERBATION 09/03/2013 LOBATO NURSE ORTHO, BRENNA R 493.92 ASTHMA WITH ACUTE EXACERBATION 09/03/2013 SHERI NURSE ORTHO, ANSON L 493.92 ASTHMA WITH ACUTE EXACERBATION [...] 465.9 UPPER RESPIRATORY INFECTION 09/12/2013 LUIS ALFREDO NURSE ORTHO, BRNENA R 465.9 UPPER RESPIRATORY INFECTION 09/12/2013 MADL NURSE ORTHO, ANSON L 465.9 UPPER RESPIRATORY INFECTION 09/12/2013 [...] N 465.9 UPPER RESPIRATORY INFECTION 09/12/2013 SHERI NURSE ORTHO, ANSON L 465.9 UPPER RESPIRATORY INFECTION 09/12/2013 MADL NURSE ORTHO, ANSON L 465.9 UPPER RESPIRATORY INFECTION 09/12/2013 [...] ACUTE MUCOID LEFT EAR 09/16/2013 JOSE FRANCISCOL NURSE ORTHO, ANSON L 381.02 OTITIS MEDIA ACUTE MUCOID [...] ASSOCIATED WITH FEMALE GENITAL ORGANS 09/21/2013 MADL NURSE ORTHO, ANSON L 625.8 OTHER SPECIFIED SYMPTOMS ASSOCIATED [...] ANSON WADE APRN 787.02 NAUSEA ALONE 10/28/2013 BERNNA LOBATO APRN R 787.02 NAUSEA ALONE 10/28/2013 [...] 790.6 OTHER ABNORMAL BLOOD CHEMISTRY 11/03/2013 ROLON USDHIR GAMINGA K 790.6 OTHER ABNORMAL BLOOD CHEMISTRY [...] PAIN IN JOINT INVOLVING SHOULDER REGION 03/30/2014 CARMNE GIBBS MD N 719.41 PAIN IN JOINT INVOLVING SHOULDER REGION 03/30/2014 MADL NURSE ORTHO, ANSON L 719.41 PAIN IN JOINT INVOLVING SHOULDER REGION 03/30/2014 CARMEN GIBBS MD N 719.41 PAIN IN JOINT INVOLVING SHOULDER REGION 03/30/2014 CARMEN GIBBS MD 719.41 PAIN IN JOINT INVOLVING SHOULDER REGION 03/30/2014 MADL NURSE ORTHO, ANSON L 719.41 PAIN IN JOINT INVOLVING SHOULDER REGION 03/30/2014 EMIL ROLON DO 719.41 PAIN IN JOINT INVOLVING SHOULDER REGION 04/27/2014 CARMEN GIBBS MD N 704.00 ALOPECIA UNSPECIFIED 04/27/2014 MADL NURSE ORTHO, ANSON L 704.00 ALOPECIA UNSPECIFIED 04/27/2014 MADL NURSE ORTHO, ANSON L 704.00 ALOPECIA UNSPECIFIED 04/27/2014 MICHELINE BAUMANN, RAQUEL R 704.00 ALOPECIA UNSPECIFIED 04/27/2014 ELLIOT MORENO DDS J 704.00 ALOPECIA UNSPECIFIED 04/27/2014 CARMEN GIBBS MD N 704.00 ALOPECIA UNSPECIFIED 04/27/2014 MADL NURSE ORTHO, ANSON L 704.00 ALOPECIA UNSPECIFIED 04/27/2014 CARMEN GIBBS MD N 704.00 ALOPECIA UNSPECIFIED 04/27/2014 CARMEN GIBBS MD N 704.00 ALOPECIA UNSPECIFIED 04/27/2014 MADL NURSE ORTHO, ANSON L 704.00 ALOPECIA UNSPECIFIED 04/27/2014 EMIL ROLON DO K 704.00 ALOPECIA UNSPECIFIED 05/10/2014 MADL NURSE ORTHO, ANSON L 786.52 PAINFUL RESPIRATION 05/10/2014 MADL NURSE ORTHO, ANSON L 786.52 PAINFUL RESPIRATION 05/10/2014 MICHELINE BAUMANN, RAQUEL R 786.52 PAINFUL RESPIRATION 05/10/2014 ELLIOT MORENO DDS J 786.52 PAINFUL RESPIRATION 05/10/2014 CARMEN GIBBS MD N 786.52 PAINFUL RESPIRATION 05/10/2014 MADL NURSE ORTHO, ANSON L 786.52 PAINFUL RESPIRATION 05/10/2014 CARMEN GIBBS MD N 786.52 PAINFUL RESPIRATION 05/10/2014 CARMEN GIBBS MD N 786.52 PAINFUL RESPIRATION 05/10/2014 MADANSON Leblanc APRN L 786.52 PAINFUL RESPIRATION 05/10/2014 EMIL ROLON DO 786.52 PAINFUL RESPIRATION 05/25/2014 MICHELINE NURSE ORTHO, RAQUEL R 461.9 SINUSITIS ACUTE 05/25/2014 MICHELINE NURSE ORTHO, RAQUEL R 709.9 UNSPECIFIED DISORDER OF SKIN AND SUBCUTANEOUS TISSUE 05/25/2014 MICHELINE NURSE ORTHO, RAQUEL R 784.0 HEADACHE 05/25/2014 WHITE DDS, [...] TOMAS MD Ot V74.8 05/28/2014 LAZARO HURTADO POLICE LIEUTENANT Ot 278.01 05/28/2014 LAZARO HURTADO POLICE LIEUTENANT Ot 401.9 05/28/2014 LAZARO HURTADO POLICE LIEUTENANT Ot 786.09 05/28/2014 LAZARO [facility] LIE[employer] Ot V85.42 05/31/2014 JOSH DDS, ELLIOT J [...] 381.81 DYSFUNCTION OF EUSTACHIAN TUBE 08/09/2014 SHERI NURSE ORTHOANSON Christie L 381.81 DYSFUNCTION OF EUSTACHIAN TUBE 08/09/2014 ROLON SUDHIR GAMINGA K 381.81 DYSFUNCTION OF EUSTACHIAN TUBE 08/17/2014 CARMEN GIBBS MD N 782.0 DISTURBANCE OF SKIN SENSATION 08/17/2014 CARMEN GIBBS MD N 790.29 ABNORMAL GLUCOSE 08/17/2014 MADL NURSE ORTHOLETICIA ChristieA L 782.0 DISTURBANCE OF SKIN SENSATION 08/17/2014 MADL NURSE ORTHOLETICIA ChristieA L 790.29 ABNORMAL GLUCOSE 08/17/2014 ROLON DO EMIL K 782.0 DISTURBANCE OF SKIN SENSATION 08/17/2014 ROLON DO EMIL K 790.29 ABNORMAL GLUCOSE 08/28/2014 CARMEN GIBBS MD N 698.9 PRURITUS NOS 08/28/2014 MADBenji NURSE ORTHO, ANSON L 698.9 PRURITUS NOS 08/28/2014 ROLON [...] TOMAS MD Ot V74.8 06/02/2015 LAZARO [facility] LIE[employer]NT Ot 278.01 06/02/2015 LAZARO [facility] POL[facility] LIE[employer]ENANT Ot 401.9 06/02/2015 LAZARO [facility] POLICE LIE[employer]ENANT Ot 786.09 06/02/2015 [facility]O [facility] LIE[employer] Ot V85.42 06/02/2015 DEE BAH MD Ot 723.0 06/02/2015 DEE BAH MD Ot 724.02 06/02/2015 ROCHELLE CANNON MD Ot M77.8 06/08/2015 ROCHELLE CANNON MD Ot M22.41 CHONDROMALACIA PATELLAE, RIGHT KNEE 06/08/2015 ROCHELLE CANNON MD Ot M23.221 DERANG OF POST HORN OF MEDIAL MENSC D/T 06/08/2015 ROCHELLE CANNON MD Ot Z79.899 OTHER ICT SUPPORT TECHNICIANS (CURRENT) DRUG THERAPY 06/08/2015 ROCHELLE CANNON MD [...] TOMAS MD Ot V74.8 06/14/2015 [facility]O [facility] LIE[employer] Ot 278.01 06/14/2015 LAZARO [facility] POL[employer] LIE[employer]NT Ot 401.9 06/14/2015 LAZARO [facility] POL[employer] LIE[employer]NT Ot 786.09 06/14/2015 [facility]O [facility] LIE[employer] Ot V85.42 06/14/2015 NIURKA PARISH, DEE Alston [...] MDNY L Ot V74.8 08/31/2015 LAZARO [facility] LIE[employer] Ot 278.01 08/31/2015 LAZARO [facility] POL[facility] LIE[employer] Ot 401.9 08/31/2015 LAZARO [facility] POL[facility] LIE[employer]NT Ot 786.09 08/31/2015 [facility]ARO [facility] [employer]IE[employer] Ot V85.42 08/31/2015 DEE BAH MD Ot [...] MASS INDEX 40.0-44.9, ADULT 12/21/2015 RONY ALDANA NURSE ORTHO Ot 571.8 CHRONIC LIVER DIS NEC 12/21/2015 TATA TOMAS MD Ot 724.70 DISORDER OF COCCYX NOS 12/21/2015 TATA TOMAS MD Ot V72.63 PRE-PROCEDURAL LABORATORY EXAMINATION 12/21/2015 TATA TOMAS MD Ot V74.8 SCREEN-BACTERIAL DIS NEC 12/21/2015 LAZARO [facility] [employer]IE[employer] Ot 278.01 MORBID OBESITY 12/21/2015 LAZARO [facility] [employer]IE[employer] Ot 401.9 HYPERTENSION NOS 12/21/2015 LAZARO [facility] POLICE LIE[employer]NT Ot 786.09 RESPIRATORY ABNORM NEC 12/21/2015 LAZARO [facility] POL[facility] LIE[employer]NT Ot V85.42 BODY MASS INDEX 45.0-49.9, ADULT [...] [place], ROCHELLE Salgado Ot Z79.899 OTHER ICT SUPPORT TECHNICIANS (CURRENT) DRUG THERAPY 05/31/2016 ROCHELLE CANNON MD Ot M22.41 CHONDROMALACIA PATELLAE, RIGHT KNEE 05/31/2016 ROCHELLE CANNON MD Ot M23.203 DERANG OF UNSP MEDIAL MENISCUS DUE TO OL 05/31/2016 [place], ROCHELLE Salgado Ot Z79.899 OTHER CARE HOME (CURRENT) DRUG THERAPY 06/14/2016 ROCHELLE CANNON MD Ot M22.41 CHONDROMALACIA PATELLAE, RIGHT KNEE 06/14/2016 ROCHELLE CANNON MD Ot M23.203 DERANG OF UNSP MEDIAL MENISCUS DUE TO OL 06/14/2016 ROCHELLE CANNON MD Ot Z79.899 OTHER ICT SUPPORT TECHNICIANS (CURRENT) DRUG THERAPY 06/17/2016 GEORGES FINN APRN [...] MASS INDEX 40.0-44.9, ADULT 06/24/2016 RONY ALDANA NURSE ORTHO Ot 571.8 CHRONIC LIVER DIS NEC 06/24/2016 TATA TOMAS MD Ot 724.70 DISORDER OF COCCYX NOS 06/24/2016 TATA TOMAS MD, Ot V72.63 PRE-PROCEDURAL LABORATORY EXAMINATION 06/24/2016 TATA TOMAS MD, Ot V74.8 SCREEN-BACTERIAL DIS NEC 06/24/2016 LAZ[facility]O [facility] POL[facility] LIE[employer] Ot 278.01 MORBID OBESITY 06/24/2016 [facility]O [facility] LIE[employer] Ot 401.9 HYPERTENSION NOS 06/24/2016 [facility]O [facility] [employer]IE[employer] Ot 786.09 RESPIRATORY ABNORM NEC 06/24/2016 LAZARO HURTADOP Ot V85.42 BODY MASS INDEX 45.0-49.9, ADULT 06/24/2016 EDE BAH MD Ot 723.0 CERVICAL SPINAL STENOSIS [...] SCREEN-BACTERIAL DIS NEC 08/05/2016 LAZARO HURTADO L POLICE LIEUTENANT Ot 278.01 MORBID OBESITY 08/05/2016 BAILAZARO HAHN L POLICE LIEUTENANT Ot 401.9 HYPERTENSION NOS 08/05/2016 BAIMA LAZARO L POLICE LIEUTENANT Ot 786.09 RESPIRATORY ABNORM NEC 08/05/2016 LAZARO [facility] LIE[employer] Ot V85.42 BODY MASS INDEX 45.0-49.9, ADULT [...] MASS AND LUMP, NECK 10/11/2016 DAVID, GEOVANI POLICE LIEUTENANT Ot R05 COUGH 10/11/2016 DAVID, GEOVANI POLICE LIEUTENANT Ot R10.12 LEFT UPPER QUADRANT PAIN 10/11/2016 DAVID, GEOVANI POLICE LIEUTENANT Ot Z87.19 PERSONAL HISTORY OF OTHER DISEASES OF 10/12/2016 DAVID, GEOVANI POLICE LIE[employer]ENANT Ot R05 COUGH 10/12/2016 DAVID, GEOVANI POLICE LIEUTENANT Ot R10.12 LEFT UPPER QUADRANT PAIN 10/12/2016 DAVID, GEOVANI POLICE LIEUTENANT Ot Z87.19 PERSONAL HISTORY OF OTHER DISEASES [...] MASS INDEX 40.0-44.9, ADULT 10/26/2016 RONY ALDANA NURSE ORTHO Ot 571.8 CHRONIC LIVER DIS NEC 10/26/2016 TATA TOMSA MD Ot 724.70 DISORDER OF COCCYX NOS 10/26/2016 TATA TOMAS MD Ot V72.63 PRE-PROCEDURAL LABORATORY EXAMINATION 10/26/2016 TATA TOMAS MD Ot V74.8 SCREEN-BACTERIAL DIS NEC 10/26/2016 LAZARO [facility] LIE[employer] Ot 278.01 MORBID OBESITY 10/26/2016 LAZARO [facility] POL[facility] LIE[employer] Ot 401.9 HYPERTENSION NOS 10/26/2016 LAZARO HURTADO [employer] Ot 786.09 RESPIRATORY ABNORM NEC 10/26/2016 LAZARO HURTADO [employer] Ot V85.42 BODY MASS INDEX 45.0-49.9, ADULT [...] 03/14/2017 YUKI MARCH MD Ot Z79.899 OTHER CARE HOME (CURRENT) DRUG THERAPY 03/15/2017 YUKI MARCH MD Ot F41.9 ANXIETY DISORDER, UNSPECIFIED 03/15/2017 YUKI MARCH MD Ot G43.909 MIGRAINE, UNSP, NOT INTRACTABLE, WITHOUT 03/15/2017 YUKI MARCH MD Ot N28.89 OTHER SPECIFIED DISORDERS OF KIDNEY AND 03/15/2017 YUKI MARCH MD Ot R10.10 UPPER ABDOMINAL PAIN, UNSPECIFIED 03/15/2017 YUKI MARCH MD Ot R10.13 EPIGASTRIC PAIN 03/15/2017 YUKI MARCH MD Ot Z79.899 OTHER ICT SUPPORT TECHNICIANS (CURRENT) DRUG THERAPY 03/18/2017 YUKI MARCH MD Ot F41.9 ANXIETY DISORDER, UNSPECIFIED 03/18/2017 YUKI MARCH MD Ot G43.909 MIGRAINE, UNSP, NOT INTRACTABLE, WITHOUT 03/18/2017 YUKI MARCH MD Ot N28.89 OTHER SPECIFIED DISORDERS OF KIDNEY AND 03/18/2017 YUKI MARCH MD Ot R10.10 UPPER ABDOMINAL PAIN, UNSPECIFIED 03/18/2017 YUKI MARCH MD Ot R10.13 EPIGASTRIC PAIN 03/18/2017 YUKI MARCH MD Ot Z79.899 OTHER ICT SUPPORT TECHNICIANS (CURRENT) DRUG THERAPY 03/20/2017 YUKI MARCH MD Ot F41.9 ANXIETY DISORDER, UNSPECIFIED 03/20/2017 YUKI MARCH MD Ot G43.909 MIGRAINE, UNSP, NOT INTRACTABLE, WITHOUT 03/20/2017 YUKI MARCH MD Ot N28.89 OTHER SPECIFIED DISORDERS OF KIDNEY AND 03/20/2017 YUKI MARCH MD Ot R10.10 UPPER ABDOMINAL PAIN, UNSPECIFIED 03/20/2017 YUKI MARCH MD Ot R10.13 EPIGASTRIC PAIN 03/20/2017 YUKI MARCH MD Ot Z79.899 OTHER ICT SUPPORT TECHNICIANS (CURRENT) DRUG THERAPY 04/13/2017 GEORGES FINN APRN [...] V74.8 SCREEN-BACTERIAL DIS NEC 05/30/2017 LAZARO HURTADO [employer] Ot 278.01 MORBID OBESITY 05/30/2017 BRYANTLAZARO Benji [employer] Ot 401.9 HYPERTENSION NOS 05/30/2017 BRYANTLAZARO Benji [employer] Ot 786.09 RESPIRATORY ABNORM NEC 05/30/2017 LAZARO HUR[employer]O [employer] Ot V85.42 BODY MASS INDEX 45.0-49.9, ADULT [...] 07/03/2017 YUNIOR LYLES MD, Ot Z79.899 OTHER CARE HOME (CURRENT) DRUG THERAPY 07/03/2017 YUNIOR LYLES [...] 07/04/2017 YUNIOR LYLES MD Ot Z79.899 OTHER CARE HOME (CURRENT) DRUG THERAPY 07/04/2017 YUNIOR LYLES MD [...] 07/09/2017 YUNIOR LYLES MD Ot Z79.899 OTHER CARE HOME (CURRENT) DRUG THERAPY 07/09/2017 YUNIOR LYLES [...] HISTORY OF OTHER DISEASES OF TH 07/24/2017 YKUI MARCH MD Ot Z87.440 PERSONAL HISTORY OF [...] PERSONAL HISTORY OF URINARY (TRACT) INFE 07/29/2017 MAKYALA HAWKINS MD Ot Z88.0 ALLERGY STATUS TO [...] ABSENCE OF BOTH CERVIX AND UTER 08/12/2017 MAKAYLA HAWKINS MD Ot Z90.89 ACQUIRED ABSENCE [...] Ot F41.9 ANXIETY DISORDER, UNSPECIFIED 08/22/2017 YUNIOR LLYES MD Ot G25.81 RESTLESS LEGS SYNDROME 08/22/2017 YUNIOR LYLES MD, Ot J45.909 UNSPECIFIED ASTHMA, UNCOMPLICATED 08/22/2017 YUNIOR LYLES MD, Ot 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 08/22/2017 YUNIOR LYLES MD Ot K86.1 OTHER CHRONIC PANCREATITIS 08/22/2017 YUNIOR LYLES MD Ot Z79.899 OTHER ICT SUPPORT TECHNICIANS (CURRENT) DRUG THERAPY 08/22/2017 YUNIOR LYLES MD [...] SCREEN-BACTERIAL DIS NEC 08/22/2017 LAZARO HURTADO L [employer] Ot 278.01 MORBID OBESITY 08/22/2017 BRYANT LAZARO L [employer] Ot 401.9 HYPERTENSION NOS 08/22/2017 BRYANT LAZARO L [employer] Ot 786.09 RESPIRATORY ABNORM NEC 08/22/2017 LAZARO HURTADO L [employer] Ot V85.42 BODY MASS INDEX 45.0-49.9, ADULT [...] 08/23/2017 YUNIOR LYLES MD, Ot Z79.899 OTHER CARE HOME (CURRENT) DRUG THERAPY 08/23/2017 YUNIOR LYLES MD Ot Z90.5 ACQUIRED ABSENCE OF KIDNEY Procedures Code Description Performed By Performed On Otolar[facility]oc[facility] Burton 03/28/2010 36511 PAP SMEAR 08/02/2011 21493 EXCISION BENIGN LESION 1.1- 2 cm (specify location in [facility] descriiption) 05/12/2012 S0630 SUTURE REMOVAL 05/19/2012 56823 SKIN TISSUE PROCEDURE 06/05/2013 64058 US LIVER ULTRASOUND 06/05/2013 50997 OXIMETRY 09/12/2013 32388 OXIMETRY 09/16/2013 44506 THERAPUTIC INJ SQ/IM 09/16/2013 J2930 SOLUMEDROL INJ 09/16/2013 23013 OXIMETRY 09/17/2013 21175 XRAY ELBOW R 2 VIEWS 09/23/2013 40014 CULTURE UROGENITAL 09/24/2013 J2550 PHENERGAN INJECTION UP TO 50 MG 10/28/2013 93917 THERAPUTIC INJ SQ/IM 10/28/2013 06784 LIVER PANEL (LFT) 10/28/2013 13136 LIPASE 10/28/2013 60665 CBC 10/28/2013 35540 ROUTINE VENIPUNCTURE 01/21/2014 46523 UA W/ CULTURE IF INDICATED 01/21/2014 39662 CBC 01/22/2014 [id number] GFR CALC (RESULT ONLY) 01/22/2014 57676 CMP 01/22/2014 82006 CMP 04/27/2014 62867 TSH 04/27/2014 87476 CBC 04/27/2014 72427 ROUTINE VENIPUNCTURE 04/27/2014 80747 ROUTINE VENIPUNCTURE 05/10/2014 55583 XRAY RIBS RIGHT UNILATERAL 2 OR MORE VIEWS 05/10/2014 53505 UA W/ CULTURE IF INDICATED 05/10/2014 89002 CBC 05/10/2014 [id number] GFR CALC (RESULT ONLY) 05/10/2014 34584 CMP 05/10/2014 48866 AMYLASE 05/10/2014 25067 LIPASE 05/10/[address] ABDOMEN & PELVIS W/ & W/ O CONTRAST 05/17/2014 59975 XRAY CERVICAL SPINE, 2 OR 3 VIEWS 09/06/2014 20007 XRAY THORACIC SPINE 2 VIEWS 09/06/2014 85793 XRAY LUMBAR SPINE 2 OR 3 VIEWS [...] identification in genital specimen by aerobe culture [id number] NRG FREE TEXT EXTERNAL 2 PLUS NORMAL [...] - 05/23/16 11:17 URINE CULTURE RESULTS <10,000/ML [facility] Streptococcus pyogenes antigen detection - 06/24/16 10:33 Streptococcus pyogenes antigen detection NEGATIVE NEGATIVE Bacterial throat culture - 06/24/16 10:33 Bacterial throat culture NBS [facility] Complete blood count (CBC) with automated white [...] YELLOW NRG Urine clarity determination SLIGHTLY CLOUDY [facility] Urine pH measurement by test strip 5 [...] Status Pt. Type Provider Facility Loc./Unit Complaint [id number] 09/06/2014 08:47:00 09/06/2014 23:59:59 CLS Outpatient EMIL ROLON DO [id number] 09/06/2014 08:47:00 09/06/2014 23:59:59 CLS Outpatient ANSON WADE APRN [id number] 08/17/2014 09:19:00 08/17/2014 23:59:59 CLS Outpatient CARMEN GIBBS MD [id number] 07/21/2014 07:46:00 07/21/2014 23:59:59 CLS Outpatient CARMEN GIBBS MD [id number] 07/05/2014 10:18:00 07/05/2014 23:59:59 CLS Outpatient ANSON WADE APRN [id number] 06/03/2014 15:45:00 06/03/2014 23:59:59 CLS Outpatient CARMEN GIBBS MD [id number] 05/31/2014 12:15:00 05/31/2014 23:59:59 CLS Outpatient ELLIOT MORENO DDS [id number] 05/25/2014 10:56:00 05/25/2014 23:59:59 CLS Outpatient RAQUEL TOBIAS APRN [id number] 05/17/2014 10:52:00 05/17/2014 23:59:59 CLS Outpatient ANSON WADE APRN [id number] 05/10/2014 09:54:00 05/10/2014 23:59:59 CLS Outpatient ANSON WADE APRN [id number] 04/27/2014 13:25:00 04/27/2014 23:59:59 CLS Outpatient CARMEN GIBBS MD [id number] 03/30/2014 15:35:00 03/30/2014 23:59:59 CLS Outpatient RAQUEL TOBIAS APRN [id number] 02/24/2014 14:34:00 02/24/2014 23:59:59 CLS Outpatient BRENNA LOBATO APRN [id number] 02/05/2014 15:30:00 02/05/2014 23:59:59 CLS Outpatient CARMEN GIBBS MD [id number] 01/21/2014 15:35:00 01/21/2014 23:59:59 CLS Outpatient ROLON EMIL GAMING Vickey [id number] 01/13/2014 00:00:00 01/13/2014 23:59:59 CLS Outpatient RAQUEL TOBIAS APRN [id number] 12/15/2013 14:31:00 12/15/2013 23:59:59 CLS Outpatient CARMEN GIBBS MD [id number] 11/03/2013 09:45:00 11/03/2013 23:59:59 CLS Outpatient ANSON WADE APRN [id number] 10/28/2013 15:00:00 10/28/2013 23:59:59 CLS Outpatient BRENNA LOBATO APRN [id number] 10/28/2013 15:00:00 10/28/2013 23:59:59 CLS Outpatient BRENNA LOBATO APRN [id number] 09/28/2013 08:54:00 09/28/2013 23:59:59 CLS Outpatient OSMAN ALVAREZ APRN [id number] 09/23/2013 10:48:00 09/23/2013 23:59:59 CLS Outpatient EMIL ROLON DO Vickey [id number] 09/23/2013 10:48:00 09/23/2013 23:59:59 CLS Outpatient GONZALES DOEMIL [id number] 09/17/2013 14:15:00 09/17/2013 23:59:59 CLS Outpatient ROLON DOEMIL Vickey [id number] 09/16/2013 14:57:00 09/16/2013 23:59:59 CLS Outpatient ROLON DO EMIL Hurd [id number] 09/16/2013 14:57:00 09/16/2013 23:59:59 CLS Outpatient ROLON DO EMIL Hurd [id number] 09/12/2013 13:04:00 09/12/2013 23:59:59 CLS Outpatient KIM NURSE ORTHOOSMAN [id number] 09/03/2013 11:29:00 09/03/2013 23:59:59 CLS Outpatient CARMEN GIBBS MD [id number] 07/01/2013 08:59:00 07/01/2013 23:59:59 CLS Outpatient CARMEN GIBBS MD [id number] 06/05/2013 14:44:00 06/05/2013 23:59:59 CLS Outpatient GONZALES GAMING EMIL Hurd [id number] 06/02/2013 12:44:00 06/02/2013 23:59:59 CLS Outpatient RAQUEL LOPEZ DDS [id number] 05/29/2013 15:47:00 05/29/2013 23:59:59 CLS Outpatient CARMEN GIBBS MD [id number] 05/27/2013 09:28:00 05/27/2013 23:59:59 CLS Outpatient CARMEN GIBBS MD [id number] 05/12/2013 15:16:00 05/12/2013 23:59:59 CLS Outpatient ELLY DOUGLAS MD [id number] 08/20/2012 15:44:00 08/20/2012 23:59:59 CLS Outpatient ROLON DO EMIL Hurd [id number] 07/07/2012 11:21:00 07/07/2012 23:59:59 CLS Outpatient BRENNA LOBATO APRN [id number] 07/02/2012 09:18:00 07/02/2012 23:59:59 CLS Outpatient [id number] 05/20/2012 10:05:00 05/20/2012 23:59:59 CLS Outpatient REGINO BOYD DDS [id number] 04/10/2012 08:55:00 04/10/2012 23:59:59 CLS Outpatient EMIL ROOLN DO [id number] 08/22/2017 10:45:00 08/22/2017 17:45:00 DIS Outpatient YUNIOR LYLES MD Via [facility] SYMPTOMATIC VENTRAL ABDOMINAL INCISIONAL HERNIA [id number] 08/20/2017 05:40:00 08/20/2017 13:12:00 DIS Outpatient YUNIOR LYLES MD Via [facility] PREOP SYMPTOMATIC VENTRAL ABDOMINAL INCISIONAL HERNIA [id number] 08/12/2017 15:42:00 08/12/2017 19:26:00 DIS Emergency MAKAYLA HAWKINS MD Via [facility] ER LEFT SIDE PAIN [id number] 07/29/2017 07:04:00 07/29/2017 11:33:00 DIS Emergency MAKAYLA HAWKINS MD Via [facility] ER FALL ON ICE--BILATERAL ARM PAIN [id number] 07/22/2017 21:10:00 07/23/2017 02:12:00 DIS Emergency YUKI MARCH MD Via [facility] ER STOMACH PAIN [id number] 07/03/2017 08:18:00 07/03/2017 12:40:00 DIS Outpatient YUNIOR LYLES MD Via [facility] ENDO HX POLYPS [id number] 06/29/2017 18:40:00 06/29/2017 21:31:00 DIS Emergency YUKI MARCH MD Via [facility] ER DARK URINE,STOMACH PAIN, THROWING UP,PANCREATITIS [id number] 06/28/2017 10:00:00 06/28/2017 10:11:00 DIS Outpatient YUNIOR LYLES MD Via [facility] PREOP COLONOSCOPY [id number] 05/30/2017 13:43:00 05/30/2017 15:03:00 DIS Emergency GEORGES FINN APRN Via [facility] ER CANNOT URINATE [id number] 04/30/2017 01:09:00 04/30/2017 03:16:00 DIS Emergency YAN CHAPARRO DO Via [facility] ER LOWER ABD PAIN [id number] 04/17/2017 20:45:00 04/18/2017 01:11:00 DIS Emergency KIARA MORRISON Via [facility] ER ABDOMINAL PAIN,KIDNEY SURGERY ON 04/10 [id number] 04/13/2017 16:02:00 04/13/2017 18:36:00 DIS Emergency GEORGES FINN NURSE ORTHO Via [facility] ER NO BOWEL MOVEMENT, KIDNEY SURGERY ON 04/10,RASH [id number] 03/14/2017 00:17:00 03/14/2017 06:22:00 DIS Emergency JOAQUIM PARISH, YUKI Machado Via [facility] ER ABD PAIN [id number] 03/07/2017 08:45:00 03/07/2017 12:32:00 DIS Emergency JUSTICE PARISH, IZABELA Martinez Via [facility] ER ABD PAIN [id number] 02/21/2017 06:02:00 02/21/2017 07:06:00 DIS Emergency SHRUTHI PARISH, MAKAYLA Alston Via [facility] ER GLENNA ON NECK-HOT,MEJIA, HURTS TO SWALLOW [id number] 01/30/2017 23:32:00 01/31/2017 00:22:00 DIS Emergency YAN CHAPARRO DO Via [facility] ER POSS ALLERGIC RXN [id number] 12/01/2016 16:29:00 12/01/2016 19:04:00 DIS Emergency CHARLY PARISH, ADRIÁN Leal Via [facility] ER FEVER/THROAT PAIN [id number] 10/26/2016 12:59:00 10/26/2016 14:50:00 DIS Emergency KIARA MORRISON Via [facility] ER VAGINAL DISCOMFORT [id number] 10/11/2016 15:52:00 10/11/2016 18:28:00 DIS Emergency GEOVANI HERNANDEZ Via [facility] ER SOA,ABD PAIN WHEN BREATHING, NUMBNESS IN ARMS [id number] 08/28/2016 08:49:00 08/28/2016 23:59:59 CLS Outpatient CARMEN GIBBS MD Via [facility] RAD NECK MASS [id number] 08/16/2016 12:45:00 08/16/2016 23:59:59 CLS Preadmit CARMEN GIBBS MD Via [facility] RAD HEMOPLYSIS,NECK MASS [id number] 08/16/2016 12:21:00 08/16/2016 23:59:59 CLS Outpatient CARMEN GIBBS MD Via [facility] RAD HEMOPLYSIS,NECK MASS [id number] 08/05/2016 10:59:00 08/05/2016 14:43:00 DIS Emergency KIARA MORRISON Via [facility] ER ABD PAIN TO BACK [id number] 06/24/2016 09:45:00 06/24/2016 11:04:00 DIS Emergency ADRIÁN PARKS MD Via [facility] ER SORE THROAT/COUGH/GREEN SPUTUM/DIZZY [id number] 05/30/2016 06:46:00 05/30/2016 10:08:00 DIS Outpatient ROCHELLE CANNON MD Via [facility] SDC RIGHT KNEE TORM MEDIAL MENISCUS [id number] 05/23/2016 10:59:00 05/23/2016 12:12:00 DIS Emergency GEORGES FINN APRN Via [facility] ER FATIGUE [id number] 05/23/2016 09:58:00 05/23/2016 10:43:00 DIS Outpatient ROCHELLE CANNON MD Via [facility] PREOP RIGHT KNEE TORN MEDIAL MENISCUS [id number] 05/02/2016 15:02:00 05/02/2016 23:59:59 CLS Outpatient ROCHELLE CANNON MD Via [facility] RAD M23.231 [id number] 03/05/2016 16:10:00 03/05/2016 19:42:00 DIS Emergency YUKI MARCH MD Via [facility] ER VAGINAL BLEEDING [id number] 12/21/2015 10:36:00 12/21/2015 14:35:00 DIS Inpatient CARMEN GIBBS MD Via [facility] 4TH CELLULITIS [id number] 12/19/2015 11:50:00 12/19/2015 14:29:00 DIS Emergency GEORGES FINN PASTOR Via [facility] ER RIGHT LEG PAIN [id number] 12/18/2015 12:43:00 12/18/2015 16:00:00 DIS Emergency KIARA MORRISON Via [facility] ER R LEG KNOT POST SURGERY [id number] 12/12/2015 09:12:00 12/12/2015 23:59:59 CLS Outpatient ROCHELLE CANNON MD Via [facility] RAD DVT [id number] 11/24/2015 13:16:00 11/24/2015 23:59:59 CLS Outpatient ROCHELLE CANNON MD Via [facility] RAD MEDIAL MENISCUS TEAR [id number] 09/06/2015 07:15:00 09/06/2015 13:25:00 DIS Outpatient YUNIOR LYLES MD Via [facility] LYMPHADEROPATHY [id number] 08/31/2015 11:25:00 08/31/2015 11:53:00 DIS Outpatient YUNIOR LYLES MD Via [facility] PREOP LIMP NODE [id number] 06/22/2015 10:51:00 06/22/2015 23:59:59 CLS Preadmit CARMEN GIBBS MD Via [facility] REHAB [id number] 06/08/2015 06:16:00 06/08/2015 11:35:00 DIS Outpatient ROCHELLE CANNON MD Via [facility] RIGHT KNEE TORN MEDIAL MENISCUS [id number] 06/02/2015 10:22:00 06/02/2015 23:59:59 CLS Outpatient CARMEN GIBBS MD Via [facility] LAB HLP [id number] 06/02/2015 10:13:00 06/02/2015 23:59:59 CLS Outpatient ROCHELLE CANNON MD Via [facility] PREOP RIGHT KNEE TORN MEDIAL MENISCUS [id number] 05/19/2015 08:58:00 05/19/2015 23:59:59 CLS Outpatient DAVIS PARISH, ROCHELLE Salgado Via [facility] RAD QUADRICEPT TENDONITIS [id number] 01/12/2015 14:32:00 01/12/2015 23:59:59 CLS Outpatient DEE BAH MD Via [facility] RAD CERVICAL STENOSIS LUMBAR STENOSIS [id number] 11/23/2014 23:46:00 11/24/2014 02:37:00 DIS Emergency JUSTICE PARISH, IZABELA Martinez Via [facility] ER ABD PAIN [id number] 09/13/2014 09:03:00 09/13/2014 11:31:00 DIS Emergency JUSTICE PARISH, IZABELA Martinez Via [facility] ER BACK PAIN [id number] 09/04/2014 13:48:00 09/04/2014 15:54:00 DIS Emergency GEORGES FINN NURSE ORTHO Via [facility] ER BACK PAIN [id number] 05/28/2014 01:35:00 05/28/2014 03:07:00 DIS Emergency ISSAC MASTERS MD Via [facility] ER POSS ALLERGIC RXN,HEAD PAIN [id number] 05/27/2014 08:20:00 05/27/2014 10:31:00 DIS Emergency RADHA MALLORY MD Via [facility] ER HEADACHE/NAUSEA [id number] 03/21/2014 17:22:00 03/21/2014 18:07:00 DIS Emergency YAN CHAPARRO DO Via [facility] ER CRAMPING [id number] 02/04/2014 08:30:00 02/04/2014 23:59:59 CLS Outpatient LAZARO HURTADO Via [facility] CARD HTN,DYSPNEA [id number] 01/19/2014 13:10:00 01/19/2014 14:04:00 DIS Emergency YAN CHAPARRO DO Via [facility] ER LOW BACK PAIN/UTI SYMPTOMS [id number] 11/20/2013 16:25:00 11/20/2013 17:42:00 DIS Emergency GEORGES FINN NURSE ORTHO Via [facility] ER BACK PAIN [id number] 10/29/2013 10:28:00 10/29/2013 12:02:00 DIS Emergency YAN CHAPARRO DO Via [facility] ER NAUSEATED/VOMITING [id number] 10/06/2013 15:24:00 10/06/2013 18:34:00 DIS Emergency KIARA MORRISON Via [facility] ER ABD PAIN [id number] 09/07/2013 07:08:00 09/08/2013 12:30:00 DIS Outpatient TATA TOMAS MD Via [facility] SDC COCCYGDYNIA [id number] 09/01/2013 13:39:00 09/01/2013 23:59:59 CLS Outpatient TATA TOMAS MD Via [facility] PREOP COCCYGDYNIA [id number] 07/31/2013 06:31:00 07/31/2013 07:53:00 DIS Outpatient LUIS MORENO MD Via [facility] CARD COCCYX PAIN [id number] 06/30/2013 07:14:00 06/30/2013 23:59:59 CLS Outpatient RONY ALDANA NURSE ORTHO Via [facility] RAD ELEVATED LIVER ENZYMES [id number] 06/25/2013 16:02:00 06/25/2013 19:00:00 DIS Emergency ISSAC MASTERS MD Via [facility] ER NAUSEA,VOMITING [id number] 06/04/2013 21:16:00 06/04/2013 21:44:00 DIS Emergency YAN CHAPARRO DO Via [facility] ER WOUND CHECK [id number] 05/29/2013 20:51:00 05/30/2013 01:31:00 DIS Emergency KIARA MORRISON Via [facility] ER POSS ABSCESS [id number] 05/28/2013 10:15:00 05/28/2013 18:57:00 DIS Emergency YAN CHAPARRO DO Via [facility] ER LEFT LEG KNOT [id number] 05/11/2013 19:26:00 05/11/2013 19:56:00 DIS Emergency GEORGES FINN NURSE ORTHO Via [facility] ER RASH [id number] 05/03/2013 09:13:00 05/03/2013 11:33:00 DIS Emergency JUSTICE PARISH, IZABELA Martinez Via [facility] ER ABD CRAMPING [id number] 03/08/2013 15:14:00 03/08/2013 16:28:00 DIS Emergency SHANKAR DO, YAN K Via [facility] ER HEADACHE [id number] 02/12/2013 14:02:00 02/12/2013 16:12:00 DIS Emergency RADHA MALLORY MD Via [facility] ER HEADACHE [id number] 02/03/2013 09:00:00 02/03/2013 23:59:59 CLS Outpatient [id number] 01/25/2013 16:03:00 01/25/2013 16:39:00 DIS Emergency SHANKAR DOYAN K Via [facility] ER TAILBONE THROBS [id number] 01/23/2013 07:33:00 01/23/2013 23:59:59 CLS Outpatient LUIS MORENO MD Via [facility] CARD COCCYX PAIN [id number] 12/30/2012 11:28:00 12/30/2012 12:33:00 DIS Emergency RUDOLPH PARISH, JOHN Dean Via [facility] ER LOOSING FEELING IN HANDS [id number] 11/29/2012 20:20:00 11/29/2012 21:04:00 DIS Emergency ISSAC MASTERS MD Via [facility] ER POST OP COMPLICATIONS [id number] 11/01/2012 13:48:00 11/01/2012 16:16:00 DIS Emergency SHANKAR DOYAN Via [facility] ER R SIDE ABD PAIN [id number] 05/28/2014 05:09:00 Document Registration [id number] 05/28/2014 05:09:00 Document Registration [id number] 05/28/2014 05:08:00 Document Registration [id number] 05/28/2014 05:08:00 Document Registration [id number] 05/28/2014 05:08:00 Document Registration [id number] 09/25/2012 15:23:00 Document Registration [id number] 07/09/2012 13:55:00 Document Registration [id number] 06/03/2012 18:43:00 Document Registration [id number] 05/28/2012 06:01:00 Document Registration [id number] 05/26/2012 07:40:00 Document Registration [id number] 04/29/2012 19:28:00 Document Registration [id number] 04/14/2012 20:36:00 Document Registration [id number] 04/02/2012 15:46:00 Document Registration [id number] 03/10/2012 08:51:00 Document Registration [id number] 02/02/2012 08:22:00 Document Registration [id number] 11/05/2011 18:15:00 Document Registration [id number] 10/09/2011 15:34:00 Document Registration [id number] 09/28/2011 12:13:00 Document Registration [id number] 08/20/2011 11:21:00 Document Registration [id number] 08/07/2011 12:50:00 Document Registration [id number] 06/19/2011 15:10:00 Document Registration [id number] 06/14/2011 10:23:00 Document Registration [id number] 04/26/2011 09:49:00 Document Registration [id number] 04/01/2011 15:48:00 Document Registration [id number] 01/14/2011 20:10:00 Document Registration [id number] 01/10/2011 01:57:00 Document Registration [id number] 12/29/2010 21:29:00 Document Registration [id number] 12/08/2010 18:15:00 Document Registration [id number] 11/16/2010 19:34:00 Document Registration [id number] 11/13/2010 17:20:00 Document Registration [id number] 10/07/2010 15:04:00 Document Registration [id number] 10/01/2010 20:35:00 Document Registration [id number] 09/29/2010 15:45:00 Document Registration [id number] 09/22/2010 00:30:00 Document Registration [id number] 09/20/2010 18:21:00 Document Registration [id number] 09/16/2010 19:14:00 Document Registration [id number] 09/06/2010 15:05:00 Document Registration [id number] 08/30/2010 16:23:00 Document Registration [id number] 07/31/2010 10:04:00 Document Registration [id number] 07/24/2010 05:42:00 Document Registration [id number] 07/12/2010 09:04:00 Document Registration [id number] 07/02/2010 12:40:00 Document Registration [id number] 06/07/2010 10:52:00 Document Registration [id number] 05/22/2010 18:40:00 Document Registration [id number] 05/09/2010 13:26:00 Document Registration [id number] 04/07/2010 16:51:00 Document Registration [id number] 03/31/2010 12:30:00 Document Registration [id number] 03/22/2010 20:54:00 Document Registration [id number] 02/13/2010 10:21:00 Document Registration [id number] 02/07/2010 17:04:00 Document Registration [id number] 02/05/2010 19:55:00 Document Registration [id number] 01/23/2010 10:58:00 Document Registration [id number] 01/09/2010 05:35:00 Document Registration [id number] 01/05/2010 07:39:00 Document Registration [id number] 12/13/2009 10:13:00 Document Registration [id number] 11/07/2009 17:37:00 Document Registration [id number] 11/03/2009 09:46:00 Document Registration
[2017-09-03] MEDS ORDERED: KETOROLAC 30 MG/ML VIAL IV PRN (02:15)
[2017-09-03] MEDS ORDERED: ONDANSETRON 4 MG/2 ML (SDV) Z0FRAN IV PRN (02:15)
[2017-09-03] MEDS ORDERED: CATHETER FLUSH 10 ML SYR IV PRN (02:15)
[2017-09-03 04:00] VITALS: BP 111/66
[2017-09-03] MEDS: CATHETER FLUSH 10 ML SYR IV SCH ×3 (05:21→22:47)
[2017-09-03] MEDS: ONDANSETRON 4 MG/2 ML (SDV) Z0FRAN IVP SCH ×4 (05:21→23:55)
[2017-09-03] MEDS: KETOROLAC 30 MG/ML VIAL IVP SCH ×4 (05:21→23:54)
--- NOTE | 2017-09-03 06:21 | Diagnostic Imaging Report ---
CLINICAL INDICATION: Patient complains of left lower quadrant pain and left nephrectomy in 04/10/2017. Patient also has history of hysterectomy, cholecystectomy, and appendectomy. EXAM: KUB x-ray. COMPARISON: X-ray of the abdomen dated 03/07/2017. FINDINGS: There are no focal calcifications overlying the expected regions/ pathways of both kidneys, ureters, and bladder regions. Phleboliths are seen in the right pelvis region. There is a nonobstructed bowel gas pattern. There is no evidence of abdominal free air. There are multiple surgical clips overlying the right pelvis and right upper quadrant region. There is a small to moderate amount of stool throughout the colon. There are small degenerative spurs involving the spine. IMPRESSION: 1: There is no radiographic evidence for acute abdominal/ pelvic process or urinary tract stones. 2: Again seen postop changes to the abdomen and pelvis. Dictated by: Dictated on workstation # [id number]
[2017-09-03 06:42] LABS: BASOPHILS # (AUTO) 0.1 10^3/uL (0.0-0.1); BASOPHILS % (AUTO) 1 % (0-10); EOSINOPHILS # (AUTO) 0.6 10^3/uL (0.0-0.3); EOSINOPHILS % (AUTO) 6 % (0-10); HEMATOCRIT 34 % (35-52); LYMPHOCYTES # (AUTO) 2.7 X 10^3 (1.0-4.0); LYMPHOCYTES % (AUTO) 29 % (12-44); MEAN CORPUSCULAR HEMOGLOBIN 29 PG (25-34); MEAN CORPUSCULAR HGB CONC 33 G/DL (32-36); MEAN CORPUSCULAR VOLUME 88 FL (80-99); MEAN PLATELET VOLUME 9.3 FL (7.4-10.4); MONOCYTES # (AUTO) 0.5 X 10^3 (0.0-1.0); MONOCYTES % (AUTO) 5 % (0-12); NEUTROPHILS # (AUTO) 5.7 X 10^3 (1.8-7.8); NEUTROPHILS % (AUTO) 60 % (42-75); PLATELET COUNT 295 10^3/uL (130-400); RED BLOOD COUNT 3.85 10^6/uL (4.35-5.85); RED CELL DISTRIBUTION WIDTH 13.2 % (10.0-14.5); WHITE BLOOD COUNT 9.5 10^3/uL (4.3-11.0)
[2017-09-03] MEDS ORDERED: INFLUENZA TRIvalent 2017-2018 0.5 ML/45 MCG SYR IM ONE (07:15)
[2017-09-03 07:23] LABS: ALANINE AMINOTRANSFERASE 18 U/L (0-55); ALBUMIN 3.5 GM/DL (3.2-4.5); ALKALINE PHOSPHATASE 63 U/L (40-136); BILIRUBIN,TOTAL 0.2 MG/DL (0.1-1.0); BUN/CREATININE RATIO 16; CALCIUM 8.7 MG/DL (8.5-10.1); CARBON DIOXIDE 23 MMOL/L (21-32); CHLORIDE 109 MMOL/L (98-107); CREATININE SERUM 0.88 MG/DL (0.60-1.30); GFR ESTIMATED > 60; GLUCOSE 99 MG/DL (70-105); POTASSIUM 3.8 MMOL/L (3.6-5.0); SODIUM 140 MMOL/L (135-145); TOTAL PROTEIN 6.5 GM/DL (6.4-8.2)
--- NOTE | 2017-09-03 07:29 | Diagnostic Imaging Report ---
CLINICAL INDICATION: Patient with left lower quadrant pain and history of left nephrectomy on 04/10/2017. Patient has history of hysterectomy, cholecystectomy, appendectomy. EXAM: CT exam of the abdomen and pelvis is performed without IV or oral contrast using stone protocol. COMPARISONS: None. FINDINGS: Visualized lung bases: Again seen 14 mm pleural-based nodule in the lateral left lung base. There is a 5.3 cm x 16.1 cm x 10.9 cm (AP x Trans x CC) fluid collection involving the left anterolateral aspect of the abdomen which is in the region of the previously seen lateral abdominal wall hernia. This fluid collection has both extra-abdominal component which is the largest, and a small transabdominal and intraperitoneal component. Intraperitoneal component is grossly 2.2 cm x 1.5 cm x 4.1 cm and is continuous with the extra-abdominal component. There is moderate amount of fat stranding/edema along the left side of abdomen. An abdominal wall defect on left side difficult to evaluate for due to the fluid collection. The previously seen loops of bowel within the left abdominal hernia region has been repaired and is not seen. Cholecystectomy is again seen. The liver is enlarged measuring 24.1 cm in craniocaudal dimension, but there is note of a slightly small left liver lobe and an elongated right liver lobe, which may represent a Aicha's lobe. Splenules are seen adjacent to the normal-appearing spleen. The pancreas, adrenal glands, and right kidney is unremarkable. Left kidney is surgically absent. Gallbladder surgically resected. There are multiple lymph nodes in the mesentery region which are not enlarged. Appendix has been surgically resected. The small bowel and colon and stomach show no significant abnormality. There is no other significant intra-abdominal free fluid or intra-abdominal free air. Bones show no significant abnormality. IMPRESSION: 1: There is interval development of a large fluid collection in the left anterior lateral extra abdominal region which has a small transabdominal and intraperitoneal component. This fluid collection is in the region of the previously seen abdominal hernia. There is no intestine seen extra-abdominal in this region on this exam and has likely been surgically repaired. This fluid collection may represent a seroma depending on recent postop changes. An abscess cannot be completely excluded since no IV contrast was administered. Enterocutaneous fistula cannot be completely excluded. 2: Stable 14 mm pleural-based nodule in the left lung base. Followup chest CT scan in three months is suggested to evaluate for resolution. 3: Postop changes to the abdomen, as described above. I agree with [employer] report. Dictated by: Dictated on workstation # [id number]
[2017-09-03] MEDS ORDERED: HYDR-3816 PO (07:50)
[2017-09-03] MEDS ORDERED: SULF-222 PO (07:50)
[2017-09-03] MEDS ORDERED: POLY255P PO (07:50)
[2017-09-03] MEDS ORDERED: ONDA8TAB13 PO (07:50)
[2017-09-03 08:00] VITALS: BP 106/67
[2017-09-03] MEDS ORDERED: BISA5TAB PO (08:12)
[2017-09-03] MEDS ORDERED: ACET-2267 PO (08:14)
[2017-09-03] MEDS ORDERED: DIPH25CA79 PO (08:14)
[2017-09-03] MEDS: fentaNYL INJECTION 100 MCG/2 ML AMP IV PRN ×3 (09:12→22:47)
[2017-09-03] MEDS: CIPROFLOXACIN 400 MG/D5W 200 ML (PRE-MIX) IV SCH ×2 (09:56→22:47)
[2017-09-03 12:00] VITALS: BP 111/63
[2017-09-03] MEDS ORDERED: LIDOCAINE 1% INJ 20 ML (XYLOCAINE) VIAL ONE (13:00)
--- NOTE | 2017-09-03 14:20 | Progress Note-Post Operative ---
Post-Operative Progess Note Surgeon (s)/Top Frame Maker (s) Surgeon YUNIOR LYLES MD Top Frame Maker: none Pre-Operative Diagnosis symptomatic fluid collection left flank Post-Operative Diagnosis seroma left flank Procedure & Operative Findings Date of Procedure 09/03/17 Procedure Performed/Findings aspiration left flank Anesthesia Type local Estimated Blood Loss Estimated blood loss (mL): minimal Specimens/Packing Specimens Removed 400ml serosanguinous fluid. YUNIOR LYLES MD Sep 03, 2017 2:20 pm
--- NOTE | 2017-09-03 15:00 | HISTORY AND PHYSICAL ---
DATE OF SERVICE: ATTENDING PRIMARY CARE PHYSICIAN: Mary Whittington MD. HISTORY OF PRESENT ILLNESS: The patient is a 32-year-old female known to us. She has a history of polyhidrosis as well as history of idiopathic chronic pancreatitis. She has had a multitude of issues related to the chronic pancreatitis including weight gain as well as intermittent episodes of nausea and vomiting as well as diarrhea after eating meals. We had seen her initially for multiple submental abscesses. She was found to have a tumor in the left kidney and was referred to [facility] and found to have a renal cell cancer and underwent a left nephrectomy on 04/11/2017. She was seen in the office for pain and swelling in the left lateral abdomen where the previous incision was. A CT scan was performed which did show a significant sized hernia. She then underwent an exploration on 08/22/2017 and was found to have a symptomatic spigelian incisional hernia. She underwent repair with mesh. She states that she has done well; however, has had recurrent episodes of pain and swelling in the region. She was seen in the Emergency Department where a CT scan was performed which did show a significant amount of fluid collection in the left lateral abdomen and flank. She is otherwise doing well and does not report any fever nor chills as well as well as no peritoneal signs. PAST MEDICAL HISTORY: 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, idiopathic chronic pancreatitis, depression, trichotillomania, anxiety, restless leg syndrome, left renal cell cancer. PAST SURGICAL HISTORY: Open total hysterectomy and appendectomy in 2012, bilateral knee arthroscopy in 2011, laparoscopic cholecystectomy 2006, right knee arthroscopy x2 in 2014, excision of left submental lymph node, which was benign 08/2015, left nephrectomy 03/2017. ALLERGIES: DEMEROL, FENTANYL, PENICILLIN. MEDICATIONS: Estradiol 3 mg at bedtime, fluoxetine 60 mg daily, ropinirole 2 mg daily, vitamin B12 daily, vitamin D daily, ibuprofen daily. SOCIAL HISTORY: Negative smoke, negative alcohol. FAMILY HISTORY: Mother, ovarian cancer. Maternal grandmother, ovarian cancer. Maternal grandfather, gastric cancer. Maternal uncle, pancreatic cancer. VITAL SIGNS: Temperature 98.1, blood pressure 111/63, pulse 70, respirations 18, pulse ox 96% on room air. REVIEW OF SYSTEMS: A well-nourished female currently in no acute distress. She is not experiencing any shortness of breath or difficulty breathing. No chest pain, palpitations, diaphoresis. Intermittent episodes of nausea as well as vomiting. Mild diarrhea on an intermittent basis. No red blood per rectum. No dark tarry stools. No fever, chills. No recent inadvertent weight loss. All other review of systems negative. PHYSICAL EXAMINATION: CHEST: Clear. Good breath sounds bilaterally. HEART: Regular. No murmurs. HEENT: No scleral icterus. NECK: No cervical lymphadenopathy. ABDOMEN: Soft with mild distention as well as a large area of fluctuance of the left lateral out lower and left abdomen with no surrounding redness or erythema. SKIN: Warm, dry. LABORATORY DATA: WBC 11.7, hemoglobin 12.5, hematocrit 37, platelets 367. BUN 14, creatinine 0.88. Liver function enzymes normal. ASSESSMENT AND PLAN: A 32-year-old female with some large symptomatic fluid collection of the left lower abdomen and flank. This most likely represents a seroma. However, we cannot rule out an abscess. Due to her symptoms, we will admit her and place her on antibiotics. She does have considerable risk factors including a history of renal cell cancer as well as an idiopathic chronic pancreatitis and pancreatic insufficiency. We will start her on IV antibiotics and proceed with IR drainage procedure. Job ID: [id number] DocumentID: [id number] Dictated Date: 09/03/2017 14:28:59 Service Delivery Director Date: 09/03/2017 14:59:03 Dictated By: YUNIOR LYLES MD
[2017-09-03 16:00] VITALS: BP 107/55
[2017-09-03 19:37] VITALS: BP 126/61
--- NOTE | 2017-09-03 19:41 | OPERATIVE REPORT ---
DATE OF SERVICE: 09/03/2017 ATTENDING PRIMARY CARE PHYSICIAN: Dr. Whittington. PREOPERATIVE DIAGNOSIS: Symptomatic large left lower abdomen and flank fluid collection. POSTOPERATIVE DIAGNOSIS: Large symptomatic left abdominal seroma. PROCEDURE: Aspiration of left lower abdominal seroma. SURGEON: Yunior Lyles MD ANESTHESIA: Local. ESTIMATED BLOOD LOSS: Minimal. FINDINGS: transudative red-tinged serous fluid, approximately 400 mL evacuated. DISPOSITION: The patient tolerated the procedure well. INDICATIONS: The patient is a 32-year-old female with history of a left renal cell cancer. She underwent a left nephrectomy in 03/2017. She developed pain and swelling in the region and was found to have a symptomatic Spigelian incisional hernia. She underwent an open repair with mesh. She reports that she developed pain as well as swelling in the region as well as intermittent episodes of nausea and vomiting. She has had issues with this before due to idiopathic chronic pancreatitis as well as pancreatic insufficiency. A CT scan was performed, which showed a large fluid collection in the left lower abdomen encroaching upon the left flank. DESCRIPTION OF PROCEDURE: The abdomen was prepped and draped in standard surgical fashion. Lidocaine 1% was used to anesthetize the overlying skin and subcutaneous tissue. The fluid collection was then aspirated with a 2-1/2 inch 16-gauge needle. The fluid was serous red-tinged transudative fluid. 400 mL of fluid was evacuated. The needle was then removed. This was then covered with a pack of sterile gauze followed by a large abdominal binder. The patient tolerated the procedure well. We will have her continue to apply pressure to the region. She was admitted due to significant nausea and vomiting and we will start a diet and advance as tolerated. She will be also instructed to continue to wear her abdominal binder. Job ID: [id number] DocumentID: [id number] Dictated Date: 09/03/2017 14:33:12 Dry Boss Date: 09/03/2017 19:40:28 Dictated By: YUNIOR LYLES MD [facility]
[2017-09-04] VITALS: BP 136/75
[2017-09-04] MEDS: D5 1/2 NS 1000 ML IV SOLUTION 1,000 ML IV SCH ×2 (02:50→10:56)
[2017-09-04 04:00] VITALS: BP 113/59
[2017-09-04] MEDS: KETOROLAC 30 MG/ML VIAL IVP SCH ×2 (05:15→12:49)
[2017-09-04] MEDS: ONDANSETRON 4 MG/2 ML (SDV) Z0FRAN IVP SCH ×2 (05:16→12:49)
[2017-09-04] MEDS: CATHETER FLUSH 10 ML SYR IV SCH (05:16)
[2017-09-04 08:00] VITALS: BP 121/67
[2017-09-04] MEDS: CIPROFLOXACIN 400 MG/D5W 200 ML (PRE-MIX) IV SCH (09:17)
[2017-09-04] MEDS: fentaNYL INJECTION 100 MCG/2 ML AMP IV PRN (09:18)
[2017-09-04 12:00] VITALS: BP 106/68
--- NOTE | 2017-09-04 14:35 | Progress Note (SOAP) ---
Subjective Date Seen by Provider: Sep 04, 2017 Time Seen by Provider: 14:00 Subjective/Events-last exam doing well. minimal abdominal pain. tolerating diet. no fever/chills. Objective Exam Vital Signs Date Time Temp Pulse Resp B/P (MAP) Pulse Ox O2 Delivery O2 Flow Rate FiO2 09/04/17 12:00 97.9 74 18 106/68 (81) 98 Room Air 09/04/17 08:00 97.8 74 16 121/67 (85) 94 Room Air 09/04/17 04:00 97.5 77 16 113/59 (77) 96 Room Air 09/04/17 00:00 96.8 77 12 136/75 (95) 96 Room Air 09/03/17 19:37 97.0 71 18 126/61 (82) 98 Room Air 09/03/17 16:00 96.5 65 18 107/55 (72) 97 Room Air I & O 09/04/17 07:00 Intake Total 1950 ml Output Total 1150 ml Balance 800 ml Capillary Refill : Less Than 3 Seconds General Appearance: No Apparent Distress HEENT: PERRL/EOMI Neck: Full Range of Motion Respiratory: Chest Non Tender, Lungs Clear Cardiovascular: Regular Rate, Rhythm Gastrointestinal: normal bowel sounds, soft, other (wound clean/dry, no fluctuance) Extremity: Normal Capillary Refill Neurologic/Psychiatric: Alert, Oriented x3 Skin: Normal Color Lymphatic: No Adenopathy Assessment/Plan Assessment/Plan Assess & Plan/Chief Complaint lower abdomen/left flank symptomatic seroma. continue with compression with abdominal binder at all times, except shower. continue bactrim DS BID 5 days. f/u in offc this week. Clinical Quality Measures DVT/VTE Risk/Contraindication: Risk Factor Score Per Nursin RFS Level Per Nursing on Admit: 1=Low/No VTE PPX YUNIOR LYLES MD Sep 04, 2017 14:35
--- NOTE | 2017-09-04 14:37 | Discharge Inst-Surgical ---
D/C Lap Instructions-TRUPTI Follow Up this week saturday. Activity as tolerated, no heavy lifting or exertion for another 4 weeks. Abdominal binder on at all times. Bactrim DS BID 7 days Regular Diet Symptoms to Report: Fever over 101 degree F, Nausea/Vomiting Infection Signs and Symptoms to report: Increased redness, Foul odor of wound, Increased drainage Bathing instructions: May shower Operative Area Clean/Dry; Keep incision clean/dry If any problems/questions: Contact your physician or go to Emergency Room YUNIOR LYLES MD Sep 04, 2017 14:37
== END 2017-09-04 15:15 | disposition home or self-care (01) | DRG 921 ==
LOC: EDUNIT# 21:07 → ER 21:09 → 4TH 21:10 → UNDOADMOB 09-03 00:01 → 4TH 09-03 00:01 → INTOOBSV 09-03 14:08 → OBSVTOIN 09-03 14:08 → UNDODISIN 09-04 15:15
PROVIDERS: ADMIT Surgery; ATTEND Surgery
PROC: 0W9G3ZX Drainage of Peritoneal Cavity, Percutaneous Approach, Diagnostic (ICD-10-PCS; principal; 2017-09-03)
DX: K91.872 Postprocedural seroma of a digestive system organ or structure following a digestive system procedure (principal); J45.909 Unspecified asthma, uncomplicated; F41.9 Anxiety disorder, unspecified; F32.9 Major depressive disorder, single episode, unspecified; G25.81 Restless legs syndrome; R11.2 Nausea with vomiting, unspecified; K59.09 Other constipation; M54.9 Dorsalgia, unspecified; K76.0 Fatty (change of) liver, not elsewhere classified; K86.89 Other specified diseases of pancreas; Z85.528 Personal history of other malignant neoplasm of kidney; Z90.5 Acquired absence of kidney; Z87.891 Personal history of nicotine dependence; Z86.69 Personal history of other diseases of the nervous system and sense organs
CPT/HCPCS: 36415; 74018; 74176; 80053; 81000; 82150; 83690; 85025; 96361; 96365; 96375; 96376; G0378

== ENCOUNTER → 2017-10-01 | Outpatient (CLI) | payer MEDICARE, MEDICAID ==
[~2017-10-01] MED LIST changes: +ACET-2267 PO; +BISA5TAB PO; +HYDR-3816 PO; +HYDR30CR95 TOP; +METR500T PO; +ONDA4TAB11 PO; +POLY255P PO; +PRD20T PO; +[UNRECOGNIZED DRUG - CODE] PO
--- NOTE | 2017-10-01 10:08 | Diagnostic Imaging Report ---
INDICATION: Left lower quadrant pain. History of left nephrectomy. TECHNIQUE: Multiple real-time gruber scale sonographic images of the abdomen. CORRELATION STUDY: CT 09/02/2017 FINDINGS: LIVER: Generalized increased echotexture within the visualized portions of the liver. There is normal, hepatopedal direction of flow within the main portal vein. Liver enlarged at 20 cm. GALLBLADDER: Cholecystectomy. COMMON BILE DUCT: Obscured. No overt bile ductal dilatation. PANCREAS: Largely obscured by overlying bowel gas. SPLEEN: Unremarkable. ABDOMINAL AORTA: Obscured. INFERIOR VENA CAVA: Obscured. RIGHT KIDNEY: 10.4 cm. Unremarkable. LEFT KIDNEY: Surgically absent. OTHER: There is a complex, multiseptated fluid collection in the left lower quadrant abdominal wall in the area of reported scar. This area measured 9.8 x 4.4 x 6.7 cm. Likely smaller from prior CT imaging previously measuring 16 x 5 cm. IMPRESSION: 1. Complex left lower quadrant abdominal wall fluid collection. It does appear to be perhaps slightly smaller from CT imaging of one month ago. Fluid collection nonspecific could be reflective of abscess, complex resolving hematoma and/or a seroma. 2. Post left nephrectomy and cholecystectomy. 3. Likely some degree of fatty infiltration liver parenchyma with hepatomegaly. Dictated by: Dictated on workstation # [id number]
== END ==
LOC: RAD 07:58
PROVIDERS: ATTEND Surgery
DX: K76.0 Fatty (change of) liver, not elsewhere classified (principal); Z90.5 Acquired absence of kidney; Z90.49 Acquired absence of other specified parts of digestive tract
CPT/HCPCS: 76700

== ENCOUNTER 2017-10-22 10:51 | Emergency (ER) | payer MEDICARE, MEDICAID ==
[~2017-10-22] VITALS: Ht 157.5 cm; Wt 115.2 kg
[~2017-10-22 10:51] MED LIST changes: -HYDR30CR95 TOP; -METR500T PO; -ONDA4TAB11 PO; -PRD20T PO; -[UNRECOGNIZED DRUG - CODE] PO
[2017-10-22 11:14] VITALS: BP 142/83
--- NOTE | 2017-10-22 14:41 | ED General ---
General Chief Complaint: General Problems/Pain Stated Complaint: SHOULDER/BACK PAIN Nursing Triage Note: PATIENT COMPLAINS OF PAIN IN HER BACK ON THE RIGHT SIDE. STATES IT RADIATES TO HER SHOULDER AND NECK. PAIN IS 8/10. STARTED 1 WEEK AGO. CHIROPRACTOR APPT DID NOT HELP. Nursing Sepsis Screen: No Definite Risk Source of Information: Patient Exam Limitations: No Limitations History of Present Illness Date Seen by Provider: October 22, 2017 Time Seen by Provider: 14:34 Initial Comments Here with complaint of right upper back pain between shoulder blade and spine that radiates up to the right shoulder. This is been going on for a few days and is not better after chiropractor or her typical prescribed pain medicines. Does not remember specific injury. Does have history of a spot on her lung and she was concerned about and changes. Denies fever, chills, cough or breathing problems. Timing/Duration: 1 Week Severity: Moderate Modifying Factors: worse with Movement; improves with Rest Associated Systoms: No Chest Pain, No Cough, No Fever/Chills, No Nausea/ Vomiting, No Shortness of Air, No Weakness Allergies and Home Medications Allergies Coded Allergies: meperidine (Verified Allergy, Unknown, 08/20/17) penicillin G (Verified Allergy, Unknown, 08/20/17) Home Medications Acetaminophen 500 Mg Tablet, 500-1,000 MG PO Q6H PRN for PAIN-MODERATE, ( Reported) Bisacodyl 5 Mg Tablet, 5-10 MG PO DAILY PRN for CONSTIPATION-4TH LINE, (Reported ) Cyanocobalamin 1,000 Mcg/Ml Inj, 1,000 MCG IJ MONTHLY, (Reported) Cyclobenzaprine HCl 10 Mg Tablet, 10 MG PO Q8H PRN for SPASMS Prescribed by: YUKI MARCH on 10/22/17 9672 Diphenhydramine HCl 25 Mg Capsule, 25 MG PO Q6H PRN for ALLERGIES, (Reported) Estradiol 2 Mg Tablet, 2 MG PO HS, (Reported) Fluoxetine HCl 40 Mg Capsule, 40 MG PO HS, (Reported) Hydrocodone/Acetaminophen 1 Each Tablet, 1-2 TAB PO Q4H PRN for PAIN-MODERATE, ( Reported) Ondansetron 8 Mg Tab.rapdis, 8 MG PO BID, (Reported) Polyethylene Glycol 3350 255 Gm Powder, 17 GM PO BID PRN for CONSTIPATION-2ND LINE, (Reported) Prednisone 20 Mg Tab, 40 MG PO DAILY Prescribed by: YUKI MARCH on 10/22/17 1552 Ropinirole HCl 4 Mg Tablet, 4 MG PO HS, (Reported) Sulfamethoxazole/Trimethoprim 1 Each Tablet, 1 TAB PO BID, (Reported) 10 DAY THERAPY FILLED 08-31-17 Patient Home Medication List Home Medication List Reviewed: Yes Review of Systems Constitutional: see HPI EENTM: no symptoms reported Respiratory: no symptoms reported Cardiovascular: no symptoms reported Gastrointestinal: no symptoms reported Musculoskeletal: back pain, joint pain, muscle pain Skin: no symptoms reported All Other Systems Reviewed Negative Unless Noted: Yes Past Kkyttlg-Xaxtvj-Qvcwex Hx Past Med/Social Hx: Reviewed Nursing Past Med/Soc Hx Patient Social History Alcohol Use: Denies Use Recreational Drug Use: No Type Used: Cigarettes 2nd Hand Smoke Exposure: No Recent Foreign Travel: No Contact w/Someone Who Travel: No Recent Infectious Disease Expo: No Recent Hopitalizations: No Immunizations Up To Date Tetanus Booster (TDap): Unknown PED Vaccines UTD: No Date of Pneumonia Vaccine: May 17, 2012 Date of Influenza Vaccine: Jul 03, 2012 Seasonal Allergies Seasonal Allergies: Yes (MILD) Past Medical History Surgeries: Yes Abdominal, Adenoidectomy, Appendectomy, Gallbladder, 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, Nephrectomy, Orthopedic, Tonsillectomy Respiratory: Yes (HASNT USED INHALER IN > 4 YRS) Asthma Currently Using CPAP: No Currently Using BIPAP: No Cardiac: No Neurological: Yes (RESTLESS LEG SYNDROME) Headaches /Migraines 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: No 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 Sexually Transmitted Disease: No HIV/AIDS: No Genitourinary: Yes (L KIDNEY REMOVED FOR TUMOR;) UTI-Chronic Gastrointestinal: Yes (ENLARGED LIVER/FATTY LIVER) Liver Disease/Jaundice, Chronic Constipation, Pancreatitis, Polyps Musculoskeletal: Yes (COCCYX-REPAIRED, MAY HAVE SIGNS OF ARTHRITIS) Chronic Back Pain Endocrine: Yes (CHRONIC PANCREATITIS) HEENT: No Loss of Vision: Denies Hearing Impairment: Denies Cancer: Yes Kidney Did You Recieve Any Treatments: Yes What Type of Treatment Did You: Surgical Intervention Psychosocial: Yes Anxiety, Depression Integumentary: No Herpes Blood Disorders: No Adverse Reaction/Blood Tranf: No (N/A) Family Medical History Reviewed Nursing Family Hx Cardiovascular disease 19 FATHER Completed stroke 19 FATHER Diabetes mellitus 19 FATHER Hypercholesterolemia 19 FATHER 19 MOTHER Hypertension 19 FATHER 19 MOTHER Neoplasm 19 MOTHER Psychosocial problem 19 FATHER 19 MOTHER Cancer, Diabetes, Hypertension Physical Exam Vital Signs Vital Signs - First Documented 10/22/17 11:14 Temp 97.5 Pulse 55 Resp 18 B/P (MAP) 142/83 (102) Pulse Ox 99 Capillary Refill : Less Than 3 Seconds General Appearance: No Apparent Distress, WD/WN Neck: Normal Inspection, Non Tender, Supple Respiratory: Lungs Clear, Normal Breath Sounds Cardiovascular: Regular Rate, Rhythm, No Murmur Neurologic/Psychiatric: Alert, Oriented x3 Skin: Normal Color, Warm/Dry Progress/Results/Core Measures Suspected Sepsis Recent Fever Within 48 Hours: No Infection Criteria Present: None New/Unexplained Altered Menta: No Sepsis Screen: No Definite Risk SIRS Temperature:97.5 Pulse: 55 Respiratory Rate: 18 Blood Pressure 142 /83 Mean: 102 Results/Orders My Orders Orders - YUKI MARCH MD Chest Pa/Lat (2 View) (10/22/17 14:38) Vital Signs/I&O 10/22/17 11:14 Temp 97.5 Pulse 55 Resp 18 B/P (MAP) 142/83 (102) Pulse Ox 99 Capillary Refill : Less Than 3 Seconds Blood Pressure Mean: 102 Progress Note : Progress Note Seen and evaluated. Chest x-ray ordered. No acute findings. Discharged home with return precautions. Patient verbalize understanding instructions and agreement with plan. Diagnostic Imaging Diagonstic Imaging: Xray Plain Films/CT/US/NM/MRI: chest Comments NAME: JAYLYN DELGADO [facility] REC#: [id number] PT STATUS: REG ER : 1985 PHYSICIAN: YUKI MARCH MD ADMIT DATE: 10/22/17/ER Signed Date of Exam: 10/22/17 CHEST PA/LAT (2 VIEW) Dictation: Pain. Comparison: None. Findings: Two views of the chest were obtained. Heart size is normal. The pulmonary vessels appear unremarkable. There is no pneumothorax, mediastinal widening or pleural fluid. Lungs are clear. Osseous structures appear unremarkable. Impression: No acute abnormalities demonstrated. Dictated by: Dictated on workstation # [id number] Dict: 10/22/17 1500 Trans: 10/22/17 1501 Interpreted by: MARY MASTERS DO Electronically signed by: MARY MASTERS DO 10/22/17 1501 Departure Impression Primary Impression: Upper back pain on right side Disposition: 01 HOME, SELF-CARE Condition: Stable Departure-Patient Inst. Decision time for Depature: 15:50 Referrals: CARMEN GIBBS MD (PCP/Family) Primary Care Physician Patient Instructions: Shoulder Pain (DC), Upper Back Pain (DC) Add. Discharge Instructions: All discharge instructions reviewed with patient and/or family. Voiced understanding. Take medications as directed. You may use the icy hot with lidocaine patches, Aspercreme with lidocaine patches or SolonPas with lidocaine patches per package directions over area of concern. Follow up with your Dr. in a few days for recheck. Return for worse pain, fever, vomiting, weakness, breathing problems or other concerns as needed. Scripts Prednisone (Prednisone) 20 Mg Tab 40 MG PO DAILY, #10 TAB 0 Refills Prov: YUKI MARCH MD 10/22/17 Cyclobenzaprine HCl (Cyclobenzaprine HCl) 10 Mg Tablet 10 MG PO Q8H PRN for SPASMS, #15 TAB 0 Refills Prov: YUKI MARCH MD 10/22/17 YUKI MARCH MD October 22, 2017 14:41
--- NOTE | 2017-10-22 15:02 | Diagnostic Imaging Report ---
Dictation: Pain. Comparison: None. Findings: Two views of the chest were obtained. Heart size is normal. The pulmonary vessels appear unremarkable. There is no pneumothorax, mediastinal widening or pleural fluid. Lungs are clear. Osseous structures appear unremarkable. Impression: No acute abnormalities demonstrated. Dictated by: Dictated on workstation # [id number]
[2017-10-22] MEDS ORDERED: CYCL10TA9 PO (15:52)
[2017-10-22] MEDS ORDERED: PRD20T PO (15:52)
== END 2017-10-22 15:57 | disposition home or self-care (01) ==
LOC: EDUNIT# 10:51 → ER 10:55
DX: J45.909 Unspecified asthma, uncomplicated (principal); G25.81 Restless legs syndrome; M54.6 Pain in thoracic spine; F41.9 Anxiety disorder, unspecified; F32.9 Major depressive disorder, single episode, unspecified; G43.909 Migraine, unspecified, not intractable, without status migrainosus; Z88.5 Allergy status to narcotic agent; Z88.0 Allergy status to penicillin; Z87.440 Personal history of urinary (tract) infections; Z86.010 Personal history of colon polyps; Z85.528 Personal history of other malignant neoplasm of kidney; Z87.19 Personal history of other diseases of the digestive system; Z79.52 Long term (current) use of systemic steroids; Z90.49 Acquired absence of other specified parts of digestive tract; Z90.89 Acquired absence of other organs; Z90.710 Acquired absence of both cervix and uterus; Z90.5 Acquired absence of kidney
CPT/HCPCS: 71046; 99281

== ENCOUNTER 2017-11-11 09:15 | Emergency (ER) | payer MEDICARE, MEDICAID ==
[~2017-11-11] VITALS: Ht 157.5 cm; Wt 108.9 kg
[~2017-11-11 09:15] MED LIST changes: +PRD20T PO
--- OUTSIDE RECORDS SUMMARY | 2017-11-11 09:20 | XMS REPORT | Clinical Summary ---
Author Author [facility] Organization [facility] Address Unknown Phone Unavailable Care Team Providers Care Oral Hygienist Name Role Phone Michael Sutton MD Unavailable Unavailable Mary Whittington MD PCP Jessica Valera Unavailable Maggie Puente Unavailable Unavailable Mary Telles APRN Unavailable Bam Ritter MD Unavailable Radha Bo LPN Unavailable Unavailable Jose Sanchez MD Unavailable Source Comments Some departments are not documenting in the electronic medical record. If you do not see the information that you expected, contact Release of Information in the Health Information Management department at [phone] for further assistance in locating additional records.[facility] Allergies Active Allergy Reactions Severity Noted [...] 4,000 mg of acetaminophen in 24 hours. ondansetron (ZOFRAN ODT) Dissolve 1 tablet by 60 tablet 2 09/03/19 Active 8 mg rapid dissolve mouth twice daily. Place 18 tabletIndications: on tongue to disolve. Chronic nausea, Chronic vomiting ferrous sulfate (IRON Take 1 tablet by mouth 60 tablet 3 09/06/19 Active (FERROUS SULFATE)) 325 mg twice daily for 120 days. 18 18 (65 mg iron) Take with 8 ounces of tabletIndications: orange juice Medication monitoring encounter cyanocobalamin (VITAMIN INJECT 1ML INTO THE 1 mL 3 10/03/19 Active B-12, RUBRAMIN) 1,000 MUSCLE EVERY 30 DAYS 18 mcg/mL injectionIndications: Medication monitoring encounter Active Problems Problem Noted Date Left renal mass 04/10/2017 Renal mass 03/21/2017 Overview: Added automatically from request for surgery [id number] 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 06/24/2013 Overview: S/P HOLLAND, BSO 11/27 Depression 06/24/2013 S/P cholecystectomy 06/24/2013 Overview: 2007 S/P appendectomy 06/24/2013 Overview: November 2012 Pancreatitis 10/23/2011 Encounters Date Type Specialty Care Team Description 11/08/2017 [facility] Radiology Abel Poe MD Canceled (Other) Encounter 10/31/2017 Telephone Abel Poe MD Results 10/01/2017 Refill Gastroenterology Randy Nunez MD Medication monitoring encounter 09/06/2017 Telephone Oncology Abel Poe MD Appointment 09/05/2017 Orders Only Gastroenterology Jessica Valera ARNP Medication monitoring encounter 09/02/2017 Hospital Lab Randy Nunez MD Encounter 09/02/2017 Office Visit Gastroenterology Jessica Valera ARNP B12 deficiency (Primary Dx); Chronic nausea; Epigastric pain; Chronic pancreatitis, unspecified pancreatitis type (HCC); Vitamin D deficiency; Iron deficiency; Chronic vomiting 08/14/2017 Orders Only Oncology Abel Poe MD Renal cell cancer, left (HCC) (Primary Dx) 08/14/2017 Telephone Oncology Abel Poe MD Hernia from Last 3 Months Family History Medical [...] CDT Respiratory Rate 14 06/03/2017 10:10 AM RING STRIKER Oxygen Saturation 97% 05/06/2017 8:47 AM RING STRIKER Inhaled Oxygen - - Concentration Weight 118.4 kg (261 lb) 09/02/2017 9:32 AM CDT Height 160 cm (5' 3") 09/02/2017 9:32 AM CDT Body Mass Index 46.23 09/02/2017 9:32 AM CDT Plan of Treatment Health Maintenance [...] Performing Laboratory [facility] [address] [place] [address] * 25-OH VITAMIN D (D2 + D3) (09/02/2017 10:40 AM) Component Value Ref Range Vitamin D(25-OH)Total 38.0 30 - 80 NG/ML Specimen Performing Laboratory [facility] [address] [place] [address] * CBC (09/02/2017 10:40 AM) Component Value [...] Specimen Performing Laboratory [facility] [address] [place] [address] * VITAMIN B12 (09/02/2017 10:40 AM) Component Value Ref Range Vitamin B12 495 180 - 914 PG/ML Specimen Performing Laboratory [facility] [address] [place] [address] from Last 3 Months
--- OUTSIDE RECORDS SUMMARY | 2017-11-11 09:20 | XMS REPORT | Encounter Summary ---
Author Author [facility] Organization [facility] Address Unknown Phone Unavailable Care Team Providers Care Sorority Supervisor Name Role Phone Michael Sutton MD Unavailable Unavailable Mary Whittington MD PCP Jessica Valera Unavailable Maggie Puente Unavailable Unavailable Mary Telles APRN Unavailable Bam Ritter MD Unavailable Radha Bo LPN Unavailable Unavailable Jose Sanchez MD Unavailable Reason for Visit * Reason Comments Medication Refill Encounter Details Date Type Department Care Team Description 10/01/2017 Refill [facility] Randy Nunez MD Medication monitoring Physicians - Internal [address] [place] [address] encounter Medicine [place] [address] [address] [place] [address] Social History Tobacco Use Types [...] fileas of this encounter Visit Diagnoses Diagnosis Medication monitoring encounter Encounter for therapeutic drug monitoring
--- OUTSIDE RECORDS SUMMARY | 2017-11-11 09:20 | XMS REPORT | Encounter Summary ---
Author Author [facility] Organization [facility] Address Unknown Phone Unavailable Care Team Providers Care Body Service Team Member Name Role Phone Michael Sutton MD Unavailable Unavailable Mary Whittington MD PCP Jessica Valera Unavailable Maggie Puente Unavailable Unavailable Mary Telles APRN Unavailable Bam Ritter MD Unavailable Radha Bo LPN Unavailable Unavailable Jose Sanchez MD Unavailable Reason for Visit * Reason Comments Appointment Encounter Details Date Type Department Care Team Description 09/06/2017 Telephone [facility] Abel Poe MD Appointment [facility] - Exam [address] [facility] [place] [address] [place] [address] [place] [address] [phone] Social History Tobacco Use Types Packs/Day Years [...] encounter Miscellaneous Notes * Telephone Encounter - Bruna Buck - 09/06/2017 8:57 AM CDT Called and left vm for patient indicating that due to clinic freeze we needed to reschedule her appt with Dr Poe on 11/04 . Left dates and times for new appt Also left phone number for pt to call should she need to reschedule Mailed updated calendar in this encounter Plan of Treatment Not on fileas of this encounter Visit Diagnoses Not on filein this encounter
--- OUTSIDE RECORDS SUMMARY | 2017-11-11 09:20 | XMS REPORT | Encounter Summary ---
Author Author [facility] Organization [facility] Address Unknown Phone Unavailable Care Team Providers Care Water Sponger Name Role Phone Michael Sutton MD Unavailable Unavailable Mary Whittington MD PCP Jessica Valera Unavailable Maggie Puente Unavailable Unavailable Mary Telles APRN Unavailable Bam Ritter MD Unavailable Radha Bo LPN Unavailable Unavailable Jose Sanchez MD Unavailable Encounter Details Date Type Department Care Team Description 09/05/2017 Orders Only [facility] Jessica Valera ARNP Medication monitoring Physicians - Internal [address] [facility] encounter Medicine [address] [place] [address] [address] [facility] MED [phone] [place] [address] Social History Tobacco Use Types [...]
--- OUTSIDE RECORDS SUMMARY | 2017-11-11 09:20 | XMS REPORT | Encounter Summary ---
Author Author [facility] Organization [facility] Address Unknown Phone Unavailable Care Team Providers Care Prosecuting Attorney Name Role Phone Michael Sutton MD Unavailable Unavailable Mary Whittington MD PCP Jessica Valera Unavailable Maggie Puente Unavailable Unavailable Mary Telles BEER MAKER Unavailable Bam Ritter MD Unavailable Radha Bo JUVENILE JUSTICE OFFICER Unavailable Unavailable Jose Sanchez MD Unavailable Reason for Visit * Reason Comments Abdominal pain Constipation Blood in stools Nausea Anal Pain Vomiting Encounter Details Date Type Department Care Team Description 09/02/2017 Office Visit [facility] Jessica Valera ARNP B12 deficiency (Primary Physicians - Internal [address] Dx); Medicine [place] [address] Chronic nausea; [address] [place] [address] Epigastric pain; [place] [address] Chronic pancreatitis, unspecified pancreatitis type [...] if you have any questions or concerns. [phone]. in this encounter Progress Notes * Jessica [...] with endoscopic ultrasound. She has seen Dr. [place] in the past. She has undergone prior [...] [facility] [place] [place] on [facility]17 for further recommendations. She [...] of [facility] [place] [place]. Patient was advised of the plan [...] concerns. in this encounter Plan of Treatment Not on fileas of this encounter Results * VITAMIN B12 (09/02/2017 10:40 AM) Component Value Ref Range Vitamin B12 495 180 - 914 PG/ML Specimen Performing Laboratory Blood MAIN LAB [address] [place] [address] * CBC (09/02/2017 10:40 AM) Component Value [...] [place] Specimen Performing Laboratory Blood MAIN [facility] [address] [place] [address] * 25-OH VITAMIN D (D2 + D3) (09/02/2017 10:40 AM) Component Value Ref Range Vitamin D(25-OH)Total 38.0 30 - 80 NG/ML Specimen Performing Laboratory Blood MAIN [facility] [address] [place] [address] * IRON + BINDING CAPACITY + %SAT+ FERRITIN (09/02/2017 10:40 AM) Component Value Ref Range Iron 55 50 - 160 MCG/DL Iron Binding-TIBC 495 (H) 270 - 380 MCG/DL % Saturation 11 (L) 28 - 42 % Ferritin 81 10 - 200 NG/ML Specimen Performing Laboratory Blood MAIN LAB [address] [place] [address] in this encounter Visit Diagnoses Diagnosis B12 deficiency - Primary Other B-complex deficiencies Chronic nausea Nausea alone Epigastric pain Abdominal pain, epigastric Chronic pancreatitis, unspecified pancreatitis type (HCC) Vitamin D deficiency Unspecified vitamin D deficiency Iron deficiency Iron deficiency anemia, unspecified Chronic vomiting Vomiting alone
--- OUTSIDE RECORDS SUMMARY | 2017-11-11 09:20 | XMS REPORT | Encounter Summary ---
Author Author [facility] Organization [facility] Address Unknown Phone Unavailable Care Team Providers Care Bi Lead Name Role Phone Michael Sutton MD Unavailable Unavailable Mary Whittington MD PCP Jessica Valera Unavailable Maggie Puente Unavailable Unavailable Mary Telles APRN Unavailable Bam Ritter MD Unavailable Radha Bo LPN Unavailable Unavailable Jose Sanchez MD Unavailable Encounter Details Date Type Department Care Team Description 09/02/2017 [facility] Randy Nunez MD Encounter [address] [place] [address] [address] [place] [address] [phone] Social History Tobacco Use Types Packs/Day Years [...] for Pain Indications: PAIN ondansetron (ZOFRAN ODT) Dissolve 1 tablet by 60 tablet 2 09/02/2017 8 mg rapid dissolve mouth twice daily. Place tabletIndications: on tongue to disolve. Chronic nausea, Chronic vomiting polyethylene glycol 3350 Take 1 packet by mouth 12 each 5 04/11/2017 (MIRALAX) 17 g daily. Indications: packetIndications: CONSTIPATION constipation rOPINIRole (REQUIP) 4 mg Take 4 mg by mouth at tablet bedtime daily. senna/docusate Take 1 tablet by mouth 15 tablet 0 04/11/2017 (SENOKOT-S) 8.6/50 mg twice daily. Indications: tabletIndications: CONSTIPATION constipation cyanocobalamin (VITAMIN Inject 1 mL into the 1 mL 3 06/06/201710/01 B-12) 1,000 mcg/mL muscle every 30 days. injectionIndications: Indications: VITAMIN B12 VITAMIN B12 DEFICIENCY DEFICIENCY ferrous sulfate (IRON Take 1 tablet by mouth 30 tablet 3 06/06/2017 09/05/2017 (FERROUS SULFATE)) 325 mg daily for 120 days. Take (65 mg iron) with 8 ounces of orange tabletIndications: juice Medication monitoring encounter as of this encounter Plan of Treatment Not on fileas of this encounter Results * VITAMIN B12 (09/02/2017 10:40 AM) Component Value Ref Range Vitamin B12 495 180 - 914 PG/ML Specimen Performing Laboratory Blood [facility] [address] [place] [address] * CBC (09/02/2017 10:40 AM) Component Value [...] Specimen Performing Laboratory Blood MAIN LAB [address] [place] [address] * 25-OH VITAMIN D (D2 + D3) (09/02/2017 10:40 AM) Component Value Ref Range Vitamin D(25-OH)Total 38.0 30 - 80 NG/ML Specimen Performing Laboratory Blood MAIN LAB [address] [place] [address] * IRON + BINDING CAPACITY + %SAT+ FERRITIN (09/02/2017 10:40 AM) Component Value Ref Range Iron 55 50 - 160 MCG/DL Iron Binding-TIBC 495 (H) 270 - 380 MCG/DL % Saturation 11 (L) 28 - 42 % Ferritin 81 10 - 200 NG/ML Specimen Performing Laboratory Blood MAIN LAB [address] [place] [address] in this encounter Visit Diagnoses Diagnosis Iron deficiency Iron deficiency anemia, unspecified Vitamin D deficiency Unspecified vitamin D deficiency Chronic nausea Nausea alone Chronic vomiting Vomiting alone B12 deficiency Other B-complex deficiencies Low vitamin D level Medication monitoring encounter Encounter for therapeutic drug monitoring
--- OUTSIDE RECORDS SUMMARY | 2017-11-11 09:20 | XMS REPORT | Encounter Summary ---
Author Author [facility] Organization [facility] Address Unknown Phone Unavailable Care Team Providers Care Solar Technician Name Role Phone Michael Sutton MD Unavailable Unavailable Mary Whittington MD PCP Jessica Valera Unavailable Maggie Puente Unavailable Unavailable Mary Telles APRN Unavailable Bam Ritter MD Unavailable Radha Bo LPN Unavailable Unavailable Jose Sanchez MD Unavailable Reason for Visit * Reason Comments Results Encounter Details Date Type Department Care Team Description 10/31/2017 Telephone XDD UROLOGY Abel Poe MD Results [address] [place] [address] Social History Tobacco Use Types [...] Telephone Encounter - Abel Poe MD - 10/31/2017 11:41 AM CDT I called and spoke with the patient. 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 She has an extensive history of other GI morbidity. After surgery, she developed an incisional hernia and subsequently a hernia repair in 09/2017. Per the patient, she is still seeing the surgeon who performed the hernia repair. They had recommended wearing an abdominal binder at all times but insurance is requesting documentation of need. Here is where there has been confusion. The patient states they are wanting documentation from us and that the general surgery office is also wanting documentation from us as well so that insurance will pay for the binder. They told her multiple requests were placed with our office, we have not received any of these requests, and still to date, have nothing from the insurance company. We are happy to help in any way that we can. The patient states she will call the pharmacy and the insurance company and let us know exactly what they need. In the meantime, here is documentation of need. Patient had a history of lap radical nephrectomy in 03/2017 for clear cell RCC. Final Diagnosis: A. 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 She developed an incisional hernia as documented in outside CT scans. Patient underwent repair of the hernia repair and it is recommended she wear an abdominal binder. Abel Poe MD in this encounter Plan of Treatment Not on fileas of this encounter Visit Diagnoses Not on filein this encounter
--- OUTSIDE RECORDS SUMMARY | 2017-11-11 09:20 | XMS REPORT | Encounter Summary ---
Author Author [facility] Organization [facility] Address Unknown Phone Unavailable Care Team Providers Care Machine Sorter Name Role Phone Michael Sutton MD Unavailable Unavailable Mary Whittington MD PCP Jessica Valera Unavailable Maggie Puente Unavailable Unavailable Mary Telles SHIP'S COOK Unavailable Bam Ritter MD Unavailable Radha Bo CUSTOMS AGENT Unavailable Unavailable Jose Sanchez MD Unavailable Reason for Visit * Radiology Services Status Reason Specialty Diagnoses / Referred By Referred To Procedures Contact Contact No Auth Needed Radiology Diagnoses Abel Poe MD Ww Ct Left renal mass [address] [place] [place] [address] [place] [address] CONTRAST [address] Phone: Encounter Details Date Type Department Care Team Description 11/08/2017 Hospital [facility] Abel Poe MD Canceled (Other) Encounter [facility] [address] [place] [address] [place] [address] [phone] Social History Tobacco Use Types Packs/Day Years [...] as of this encounter Progress Notes * Nacho Jane, RN - 11/06/2017 12:18 PM CDT A voicemail message was left by this RN asking the patient to call [facility] nurse's desk to acknowledge the appointment date and time , NPO requirements, and other applicable instructions related to the imaging appointment. in this encounter Plan of Treatment Not on fileas of this encounter Visit Diagnoses Not on filein this encounter
--- OUTSIDE RECORDS SUMMARY | 2017-11-11 09:21 | XMS REPORT | Encounter Summary ---
Author Author [facility] Organization [facility] Address Unknown Phone Unavailable Care Team Providers Care Water Tanker Driver Name Role Phone Michael Sutton MD Unavailable Unavailable Mary Whittington MD PCP Jessica Valera Unavailable Maggie Puente Unavailable Unavailable Mary Telles ICT SUPPORT TECHNICIANS Unavailable Bam Ritter MD Unavailable Radha Bo TOW OPERATOR Unavailable Unavailable Jose Sanchez MD Unavailable Reason for Referral * Consult, Test & Treat Status Reason Specialty Diagnoses / Referred By Referred To Procedures Contact Contact Closed Specialty General Surgery Diagnoses Abel Poe MD Freund, William L, Services Renal cell [address] Required cancer, left Blvd [address] (HCC) [address] [place] [address] Phone: Fax: Encounter Details Date Type Department Care Team Description 08/14/2017 Orders Only [facility] Abel Poe MD Renal cell cancer, left [facility] Exam [address] (HCC) (Primary Dx) [address] [place] [address] [place] [address] [phone] Social History Tobacco Use Types Packs/Day Years [...] as of this encounter Plan of Treatment Name Priority Associated Diagnoses Order Schedule AMB REFERRAL TO GENERAL SURGERY Routine Renal cell cancer, left Ordered : 08/14/2017 (HCC) as of this encounter Visit Diagnoses Diagnosis Renal cell cancer, left (HCC) - Primary
--- OUTSIDE RECORDS SUMMARY | 2017-11-11 09:21 | XMS REPORT | Encounter Summary ---
Author Author [facility] Organization [facility] Address Unknown Phone Unavailable Care Team Providers Care Outsole Scheduler Name Role Phone Michael Sutton MD Unavailable Unavailable Mary Whittington MD PCP Jessica Valera Unavailable Maggie Puente Unavailable Unavailable Mary Telles APRN Unavailable Bam Ritter MD Unavailable Radha Bo LPN Unavailable Unavailable Jose Sanchez MD Unavailable Reason for Visit * Reason Comments Hernia Encounter Details Date Type Department Care Team Description 08/14/2017 Telephone [facility] Abel Poe MD [facility] Exam [address] [facility] [address] [place] [address] [place] [address] [phone] Social History Tobacco Use Types Packs/Day Years [...] Jenn Bhatt, RN - 08/14/2017 11:56 AM WATER CHEMIST Returned pt's phone messages regarding new report of lung nodule and abd hernia. She spent time in the ED this weekend @ [facility] in [place]. She reports these findings and their recommendation that she follow up with Dr. Poe. Awaiting confirmation of records and will advise pt on follow up. in this encounter Plan of Treatment Not on fileas of this encounter Visit Diagnoses Not on filein this encounter
--- OUTSIDE RECORDS SUMMARY | 2017-11-11 09:22 | XMS REPORT ---
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 Name Role Phone LURDES MARTINSA Unavailable PROBLEMS Type Condition ICD9-CM Code CFL18-BR Code Onset Dates Condition Status SNOMED Code Problem Asthma J45.909 Active 634222488 Problem Atelectasis J98.11 Active 39543790 Problem Polydipsia R63.1 Active 34670458 Problem Chronic fatigue R53.82 Active 00451284 Problem Moderate episode of recurrent major depressive disorder F33.1 Active 911056338 Problem Generalized social phobia F40.11 Active 31462977 Problem Trichotillomania F63.3 Active 01767275 Problem Restless leg syndrome G25.81 Active 18029743 Problem Chronic post-traumatic stress disorder (PTSD) F43.12 Active 477914124 Problem History of renal cell carcinoma Z85.528 Active 059488430 Problem Nodule of left lung R91.1 Active 080451722 Problem Chronic tension-type headache, intractable G44.221 Active 278251212 Problem Hyperlipidemia, mixed E78.2 Active 763024641 Problem Hirsuties L68.0 Active 749134213 Problem Morbid (severe) obesity due to excess calories E66.01 Active 612390180 Problem FH: polycystic ovary Z84.2 Active 018543291 Problem Chronic pancreatitis K86.1 Active 158244428 ALLERGIES Substance Reaction Event Type Date Status Penicillin V Potassium Unknown Drug Allergy Mar, Active Fentanyl Unknown Drug Allergy Mar, Active Demerol Unknown Drug Allergy Mar, Active ENCOUNTERS Encounter Location Date Diagnosis [facility] [address] [facility] [id number] [address] Feb, [facility] [address] [facility] [id number], [place] [address] Nov, [facility] [address] [place] [id number] [place] [address]9899- 5420 October, Recurrent major depressive disorder, in partial remission F33.41 ; Restless leg syndrome G25.81 ; Generalized social phobia F40.11 ; Chronic post-traumatic stress disorder (PTSD) F43.12 and BMI 45.0-49.9, adult Z68.42 [place] [address] [address] October, [place] [address] [address]- [address] Sep, Chronic fatigue R53.82 and BMI 45.0-49.9, adult Z68.42 [place] [address] [address]- 7248 Aug, [place] [address] [address]9847- 5154 Jul, Restless leg syndrome G25.81 and B12 deficiency E53.8 [place] [address] [address]- 3791 Jul, [place] [address] [address]- 8735 Jul, [place] [address] [place] [id number] [place] [address] 01375- 2457 Jun, [place] [address] [address]- 8286 Jun, Fatigue, unspecified type R53.83 ; History of renal cell carcinoma Z85.528 ; Chronic pancreatitis K86.1 ; Restless leg syndrome G25.81 ; Dark urine R82.99 and BMI 45.0-49.9, adult Z68.42 [place] [address] [place] [id number] [place] [address] 82819- 0565 Jun, [place] [address] 9[address]- 1346 Jun, [place] [address], [place] [address] 8[address] Jun, [facility] [address], [place] [address] Jun, [facility] [address], [place] [address] May, Chronic post-traumatic stress disorder (PTSD) F43.12 ; Moderate episode of recurrent major depressive disorder F33.1 ; Trichotillomania F63.3 and Generalized social phobia F40.11 [place] [address] [place] [id number], [place] [address] May, [place] [address], [place] [address] May, Chronic post-traumatic stress disorder (PTSD) F43.12 ; Moderate episode of recurrent major depressive disorder F33.1 ; Trichotillomania F63.3 and Generalized social phobia F40.11 [place] [address] [place] [id number], [place] [address] 59[address] May, Hyperlipidemia, mixed E78.2 ; Morbid (severe) obesity due to excess calories E66.01 ; Chronic post-traumatic stress disorder (PTSD) F43.12 ; Moderate episode of recurrent major depressive disorder F33.1 ; Trichotillomania F63.3 and Generalized social phobia F40.11 [place] [address] [place] [id number], [place] [address] Apr, [place] [address] [place] [id number], [place] [address] 9828 Apr, Hyperlipidemia, mixed E78.2 ; Morbid (severe) obesity due to excess calories E66.01 ; Chronic post-traumatic stress disorder (PTSD) F43.12 ; Moderate episode of recurrent major depressive disorder F33.1 ; Trichotillomania F63.3 and Generalized social phobia F40.11 [place] [address] [place] [id number], [place] [address] 1403 Apr, Trichotillomania F63.3 ; Generalized social phobia F40.11 ; Chronic post-traumatic stress disorder (PTSD) F43.12 and Moderate episode of recurrent major depressive disorder F33.1 [facility] [id number] [place] [address] 85439- 6454 Apr, [facility] [id number] [place] [address] 82282- 8622 Apr, [facility] [address] [place] [id number] [place] [address] 47179- 8633 Mar, Moderate episode of recurrent major depressive disorder F33.1 ; Trichotillomania F63.3 ; Chronic post-traumatic stress disorder (PTSD) F43.12 ; Generalized social phobia F40.11 and Restless leg syndrome G25.81 [facility] [address] [place] [id number] [place] [address] 26951- 4887 Mar, [facility] [address] [place] [id number] [place] [address] 97656- 9125 Mar, [facility] [id number] [place] [address] 70276- 5757 Feb, Left kidney mass N28.89 [facility] [address] [id number] [place] [address] 17337- 9185 Jan, [facility] [address] [place] [id number] [place] [address] 41750- 8586 Dec, Polydipsia R63.1 ; Chronic pancreatitis K86.1 and Fatigue, unspecified type R53.83 [facility] [address] [place] [id number] [place] [address] 63594- 2636 Nov, [facility] [address] 55207- 5695 Nov, [facility] [address] [place] [id number] [place] [address] 44158- 1208 Nov, Headache around the eyes R51 [facility] [address] [place] [id number] [place] [address] 14670- 0176 Nov, [place] [address] [place] [id number] [place] [address] 08345- 2497 October, STD exposure Z20.2 [facility] [address] [place] [id number] [place] [address] 98053- 2128 October, STD exposure Z20.2 [place] [address] [place] [id number] [place] [address] 89003- 9815 October, Chronic post-traumatic stress disorder (PTSD) F43.12 ; Generalized social phobia F40.11 ; Trichotillomania F63.3 and Restless leg syndrome G25.81 [place] [address] [place] [id number] [place] [address] 08464- 1170 October, [place] [address] [place] [id number] [place] [address] 76572- 5932 Sep, [place] [address] [place] [id number] [place] [address] 11065- 0436 Aug, [place] [address] [place] [id number] [place] [address] 71359- 3538 Aug, [place] [address] [place] [id number] [place] [address] 95638- 9430 Aug, Neck mass R22.1 [place] [address] [place] [id number] [place] [address] 67754- 3869 Aug, Atelectasis J98.11 [place] [address] [place] [id number] [place] [address] 93076- 0206 28 Jul, 2016 Hyperlipidemia, mixed E78.2 ; Atypical pneumonia J18.9 and Neck mass R22.1 [place] [address] [place] [id number] [place] [address] 42049- 4708 15 Jul, 2016 Hemoptysis R04.2 [place] [address] [place] [id number] [place] [address] 93535- 8439 08 Jul, 2016 Acute non-recurrent pansinusitis J01.40 ; Hemoptysis R04.2 ; Polydipsia R63.1 and Malaise R53.81 [facility] [place] [id number] [place] [address] 26525 -1509 May, Other viral agents as the cause of diseases classified elsewhere B97.89 and Acute upper respiratory infection, unspecified J06.9 [facility] [address] [address] -[address]98 Mar, Nausea R11.0 [facility] [address] 83297 -1845 Dec, Hives L50.[address] [address]94- 6554 Dec, [facility] [address] 0[address]31 -9229 Dec, Cutaneous abscess of limb, unspecified L02.419 ; Cellulitis of unspecified part of limb L03.119 ; Encounter for incision and drainage procedure Z01.89 and Encounter for recheck of abscess following incision and drainage Z09 [facility] [place] [id number] [place] [address] 80513 -4538 Dec, Abscess of leg, right L02.415 [place] [id number] [place] [address] 93514- 9446 Dec, Cellulitis of unspecified part of limb L03.119 and Cutaneous abscess of limb, unspecified L02.419 [place] [address] [place] [id number] [place] [address] 68065- 6166 Dec, [address] 2[address]- 5427 Dec, [facility] [place] [id number] [place] [address] 62667 -3478 Aug, [address] [place] [address]- 5523 Aug, [facility] [id number] [place] [address] 17207 -1221 04 Jul, 2015 Pain in unspecified wrist M25.539 and Back pain, thoracic M54.6 [facility] [address] [place] [id number] [place] [address] 46498 -8140 13 Jun, 2015 Strain of right wrist, initial encounter S66.911A [facility] [address] [address]25- 2122 11 Jun, 2015 Chronic pancreatitis, unspecified pancreatitis type K86.1 ; Hirsuties L68.0 ; Morbid (severe) obesity due to excess calories E66.01 ; Chronic pancreatitis K86.1 and Asthma J45.909 [place] [address] 67919- 8584 May, [place] [address] 69520- 6548 May, Hyperlipidemia, mixed E78.2 and Muscle spasm of back M62.830 [place] [address] 99650- 0506 Apr, [place] [address] [place] [id number] [place] [address] 28532- 0875 Apr, Torticollis M43.6 [place] [address] 73785- 4177 Apr, Right-sided thoracic back pain M54.6 [place] [address] 01052- 5010 Mar, Rash R21 [place] [address] 62338- 6637 Mar, [facility] [address] [place] [id number] [place] [address] 03359- 0950 Jan, [place] [address] [place] [address]- 3126 Dec, [facility] [address] [place] [id number] [place] [address] 55224- 1838 Dec, Urinary frequency 788.41 and Nocturia more than twice per night 788.43 [facility] [address] [place] [id number] [place] [address] 49453- 6812 Nov, [facility] [address] [place] [id number] [place] [address] 23892- 4361 Nov, [facility] [address] [place] [id number] [place] [address] 40296- 8944 Nov, Abdominal pain 789.00 [facility] [address] [place] [id number] [place] [address] 80239- 6507 October, TDAP DX V06.1 [facility] [address] [place] [id number] [place] [address] 79133- 8853 October, [facility] [address] [place] [id number] [place] [address] 30920- 8162 October, Disturbance of skin sensation 782.0 ; Wrist pain, right 719.43 ; Hyperlipidemia 272.4 and Skin lesion of face 709.9 [facility] [address] [place] [address] 10664- 9001 Sep, [facility] [address] [place] [id number] [place] [address] 37671- 1951 Sep, [facility] [address] [place] [id number] [place] [address] 09116- 6790 Aug, [facility] [address] [place] [id number] [place] [address] 39763- 2653 Aug, [facility] [address] [place] [id number] [place] [address] 48863- 8780 Aug, [facility] [address] [place] [address] 52911- 9862 Aug, [facility] [place] [facility] [address] [id number] [place] [address]- 9058 16 Aug, 2014 [facility] [place] [facility] [address] [id number] [place] [address]- 9009 16 Aug, 2014 [facility] [place] [facility] [address] [id number] [place] [address]- 4330 14 Aug, 2014 [facility] [place] [facility] [address] [id number] [place] [address]- 9314 14 Aug, 2014 [facility] [place] [facility] [address] [id number] [place] [address]- 5858 11 Aug, 2014 [facility] [place] [facility] [address] [id number] [place] [address]- 2225 11 Aug, 2014 [facility] [place] [facility] [address] [id number] [place] [address]- 7070 04 Aug, 2014 [facility] [place] [facility] [address] [id number] [place] [address]- 8381 04 Aug, 2014 [facility] [place] [facility] [address] [id number] [place] [address]- 2437 03 Aug, 2014 [facility] [place] [facility] [address] [id number] [place] [address]- 5772 03 Aug, 2014 [facility] [place] [facility] [address] [id number] [place] [address]- 6702 23 Jul, 2014 [facility] [place] [facility] [address] [id number] [place] [address]- 5592 23 Jul, 2014 [facility] [place] [facility] [address] [id number] [place] [address]- 5977 Jul, [facility] [place] [facility] [address] [id number] [place] [address]- 9329 13 Jul, 2014 [facility] [place] [facility] [address] [id number] [place] [address]- 3679 04 Jul, 2014 [facility] [place] [facility] [address] [id number], [place] [address]- 5166 Jul, [facility] [address] [id number] [place] [address]- 8257 Jun, [facility] [place] [facility] [address] [id number] [place] [address]- 2535 Jun, [facility] [place] [facility] [address] [facility] [id number] [place] [address]- 2368 Jun, [facility] [place] [facility] [address] [id number] [place] [address]- 8877 Jun, [facility] [place] [facility] [address] [id number] [place] [address]- 3604 Jun, [facility] [place] [facility] [address] [id number] [place] [address]- 8270 Jun, [facility] [address] [facility] [id number], [place] [address]- 1506 Jun, [facility] [place] [facility] [address] [id number] [place] [address]- 6620 Jun, [facility] [address] [id number] [place] [address]- 5566 May, [facility] [place] [facility] [address] [facility] [id number] [place] [address]- 6646 May, [facility] [place] [facility] [address] [id number] [place] [address]- 7039 18 May, 2014 [facility] [place] [facility] [address] [id number], [place] [address]- 3699 18 May, 2014 [facility] [place] [facility] [address] [id number] [place] [address]- 5578 15 May, 2014 [facility] [place] [facility] [address] [facility] [id number], [place] [address]- 2056 15 May, 2014 [facility] [place] [facility] [address] [facility] [id number] [place] [address]- 1513 11 May, 2014 [facility] [place] [facility] [address] [id number] [place] [address]- 6903 May, [facility] [place] [facility] [address] [id number] [place] [address]- 3667 May, [facility] [place] [facility] [address] [id number] [place] 1325 May, [facility] [place] [facility] [address] [id number] [place] [address]- 7602 May, [facility] [place] [facility] [address] [id number] [place] [address]- 5269 May, [facility] [place] [facility] [address] [id number] [place] [address]- 0242 Apr, [facility] [place] [facility] [address] [id number] [place] [address]- 4247 Apr, [facility] [place] [facility] [address] [id number] [place] [address]- 8819 Apr, [facility] [place] [facility] [address] [id number] [place] [address]- 0227 Apr, [facility] [place] [facility] [address] [id number] [place] [address]- 9665 Apr, [facility] [place] [facility] [address] [id number] [place] [address]- 0530 Apr, [facility] [place] [facility] [address] [id number] [place] [address]- 8467 Apr, [facility] [place] [facility] [address] [id number] [place] [address]- 3851 Apr, [facility] [place] [facility] [address] [id number] [place] [address]- 7891 Apr, [facility] [place] [facility] [address] [id number] [place] [address]- 1979 Apr, [facility] [place] [facility] [address] [id number] [place] [address]- 4385 Apr, [facility] [place] [facility] [address] [id number] [place] [address]- 5591 Apr, [facility] [place] [facility] [address] [id number] [place] [address]- 3693 Mar, [facility] [place] [facility] [address] [id number] [place] [address]- 2294 Mar, [facility] [place] [facility] [address] [id number] [place] [address]- 6606 Mar, [facility] [place] [facility] [address] [id number] [place] [address]- 1726 Mar, [facility] [place] [facility] [address] [id number] [place] [address]- 7093 Feb, [facility] [place] [facility] [address] [id number] [place] [address]- 9948 Feb, [facility] [place] [facility] [address] [id number] [place] [address]- 3517 05 Feb, 2014 [facility] [place] [facility] [address] [id number] [place] [address]- 4804 05 Feb, 2014 [facility] [place] [facility] [address] [id number] [place] [address]- 1715 05 Feb, 2014 [facility] [place] [facility] [address] [id number], [place] [address]- 7361 Feb, [facility] [place] [facility] [address] [id number], [place] [address]- 4428 Jan, [facility] [place] [facility] [address] [id number] [place] [address]- 0063 Jan, [facility] [place] [facility] [address] [id number] [place] [address]- 1890 Jan, [facility] [place] [facility] [address] [id number] [place] [address]- 2388 Jan, [facility] [place] [facility] [address] [id number] [place] [address]- 9104 Jan, [facility] [place] [facility] [address] [id number] [place] [address]- 4930 Jan, [facility] [place] [facility] [address] [id number] [place] [address]- 0398 Jan, [facility] [place] [facility] [address] [id number] [place] [address]- 2243 Jan, [facility] [place] [facility] [address] [id number] [place] [address]- 3091 Jan, [facility] [place] [facility] [address] [id number] [place] [address]- 9066 Jan, [facility] [place] [facility] [address] [id number] [place] [address]- 3284 Jan, [facility] [place] [facility] [address] [id number] [place] [address]- 0788 Jan, [facility] [place] [facility] [address] [id number] [place] [address]- 9131 Jan, [facility] [place] [facility] [address] [id number] [place] [address]- 5391 Jan, [facility] [place] [facility] [address] [id number] [place] [address]- 2429 Dec, [facility] [place] [facility] [address] [id number] [place] [address]- 7697 Dec, [facility] [place] [facility] [address] [id number] [place] [address]- 3816 Dec, [facility] [place] [facility] [address] [id number] [place] [address]- 1349 Dec, [facility] [place] [facility] [address] [id number] [place] [address]- 4818 Nov, [facility] [place] [facility] [address] [id number] [place] [address]- 5859 Nov, [facility] [place] [facility] [address] [id number] [place] [address]- 6010 Nov, [facility] [place] [facility] [address] [id number] [place] [address]- 5104 Nov, [facility] [place] [facility] [address] [id number] [place] [address]- 6236 Nov, [facility] [place] [facility] [address] [id number] [place] [address] October, [facility] [place] [facility] [address] [id number] [place] [address] October, [facility] [place] [facility] [address] [id number] [place] [address] October, [facility] [place] [facility] [address] [id number] [place] [address] October, [facility] [place] [facility] [address] [id number] [place] [address] October, [facility] [place] [facility] [address] [id number] [place] [address] October, [facility] [place] [facility] [address] [id number] [place] [address] October, [facility] [place] [facility] [address] [id number] [place] [address] October, [facility] [place] [facility] [address] [id number] [place] [address] October, [facility] [place] [facility] [address] [id number] [place] [address] October, [facility] [place] [facility] [address] [id number] [place] [address] October, [facility] [place] [facility] [address] [id number] [place] [address] October, [facility] [place] [facility] [address] [id number] [place] [address] October, [facility] [place] [facility] [address] [id number] [place] [address] October, [facility] [place] [facility] [address] [id number] [place] [address] Sep, [facility] [place] [facility] [address] [id number] [place] [address] Sep, [facility] [place] [facility] [address] [id number] [place] [address] Sep, [facility] [place] [facility] [address] [id number] [place] [address] Sep, [facility] [place] [facility] [address] [id number] [place] [address] Sep, [facility] [place] [facility] [address] [id number] [place] [address] Sep, [facility] [place] [facility] [address] [id number] [place] [address] Sep, [facility] [place] [facility] [address] [id number] [place] [address] Sep, [facility] [place] [facility] [address] [id number] [place] [address]- [address] Sep, [facility] [place] [facility] [address] [id number] [place] [address] Sep, [facility] [place] [facility] [address] [id number] [place] [address] Sep, [facility] [place] [facility] [address] [id number] [place] [address] Sep, [facility] [place] [facility] [address] [id number] [place] [address] Sep, [facility] [place] [facility] [address] [id number] [place] [address] Sep, [facility] [place] [facility] [address] [id number] [place] [address] Sep, [facility] [place] [facility] [address] [id number] [place] [address] Aug, [facility] [place] [facility] [address] [id number] [place] [address] Aug, [facility] [place] [facility] [address] [id number] [place] [address] Aug, [facility] [place] [facility] [address] [id number] [place] [address] Aug, [facility] [place] [facility] [address] [id number] [place] [address] Jul, [facility] [place] [facility] [address] [id number] [place] [address] Jul, [facility] [place] [facility] [address] [id number] [place] [address] Jul, [facility] [place] [facility] [address] [id number] [place] [address] Jul, [facility] [place] [facility] [address] [id number] [place] [address] Jun, [facility] [place] [facility] [address] [id number] [place] [address] Jun, [facility] [place] [facility] [address] [id number] [place] [address]- [address]69 Jun, [facility] [place] [facility] [address] [id number] [place] [address] Jun, [facility] [place] [facility] [address] [id number] [place] [address] Jun, [facility] [place] [facility] [address] [id number] [place] [address] Jun, [facility] [place] [facility] [address] [id number] [place] [address] 08 Jun, 2013 [facility] [address] [id number] [place] [address] 08 Jun, 2013 [facility] [address] [id number] [place] [address] 20 May, 2013 [facility] [address] [id number] [place] [address] 49[address] 20 May, 2013 [facility] [address] [id number] [place] [address] 4[address] 18 May, 2013 [facility] [address] [id number] [place] [address] 7102 18 May, 2013 [facility] [address] [id number] [place] [address] 9437 17 May, 2013 [facility] [address] [id number] [place] [address] 17 May, 2013 [facility] [address] [id number] [place] [address]- 8875 17 May, 2013 [facility] [address] [id number] [place] [address]- 7022 17 May, 2013 [facility] [address] [id number] [place] [address]- 9106 16 May, 2013 [facility] [address] [id number] [place] [address]- 0973 16 May, 2013 [facility] [place] [facility] [address] [id number], [place] [address] 14 May, 2013 [facility] [place] [facility] [address] [id number] [place] [address]- 3576 14 May, 2013 [facility] [place] [facility] [address] [id number] [place] [address]- 6834 13 May, 2013 [facility] [place] [facility] [address] [id number] [place] [address]- 6684 13 May, 2013 [facility] [address] [id number] [place] [address] 2621 May, [facility] [address] [id number] [place] [address] May, [facility] [place] [facility] [address] [id number] [place] [address] May, [facility] [address] [id number] [place] [address]- 6688 May, [facility] [place] [facility] [address] [id number] [place] [address]- 4784 Apr, [facility] [address] [id number] [place] [address]- 6007 Apr, [facility] [place] [facility] [address] [id number] [place] [address]- 3099 Apr, [facility] [address] [id number] [place] [address]- 3442 Apr, [facility] [address] [id number] [place] [address]- 2929 Aug, [facility] [address] [id number] [place] [address]- 2448 Aug, [facility] [place] [facility] [address] [id number] [place] [address]- 5282 Aug, [facility] [address] [id number] [place] [address]- 5285 05 Aug, 2012 [facility] [place] [facility] [address] [id number] [place] [address]- 9622 Jul, [facility] [place] [facility] [address] [id number] [place] [address]- 0932 Jun, [facility] [place] [facility] [address] [id number] [place] [address]- 3135 Jun, [facility] [place] [facility] [address] [id number] [place] [address]- 7678 Jun, [facility] [place] [facility] [address] [id number] [place] [address]- 0212 Jun, [facility] [place] [facility] [address] [id number] [place] [address]- 9528 May, [facility] [place] [facility] [address] [id number] [place] [address]- 9334 May, [facility] [place] [facility] [address] [id number] [place] [address] 1910 May, [facility] [place] [facility] [address] [id number] [place] [address]- 8374 May, [facility] [place] [facility] [address] [id number] [place] [address]- 3613 May, [facility] [place] [facility] [address] [id number] [place] [address]- 4635 May, [facility] [place] [facility] [address] [id number] [place] [address]- 6682 May, [facility] [place] [facility] [address] [id number] [place] [address]- 6201 Apr, [facility] [place] [facility] [address] [id number] [place] [address]- 1285 Apr, [facility] [place] [facility] [address] [id number] [place] [address]- 1551 Apr, [facility] [place] [facility] [address] [id number] [place] [address]- 6343 Apr, [facility] [place] [facility] [address] [id number] [place] [address]- 1881 Apr, [facility] [place] [facility] [address] [id number] [place] [address]- 6470 Apr, [facility] [place] [facility] [address] [id number] [place] [address]- 4845 Apr, [facility] [place] [facility] [address] [id number], [place] [address] 6[address] Mar, [facility] [place] [facility] [address] [id number] [place] [address] Mar, [facility] [place] [facility] [address] [id number] [place] [address]- 2180 Mar, [facility] [place] [facility] [address] [id number] [place] [address]- 7756 Mar, [facility] [place] [facility] [address] [id number] [place] [address]- 6722 Mar, [facility] [place] [facility] [address] [id number] [place] [address]39 Mar, [facility] [place] [facility] [address] [id number] [place] [address] Mar, [facility] [place] [facility] [address] [id number] [place] [address]- 2024 Mar, [facility] [place] [facility] [address] [id number], [place] [address] 2858 Mar, [facility] [place] [facility] [address] [id number] [place] [address]- 6661 Mar, [facility] [place] [facility] [address] [id number], [place] [address] 7866 Mar, [facility] [place] [facility] [address] [id number], [place] [address] 2373 Mar, [facility] [place] [facility] [address] [id number], [place] [address] 6159 Feb, [facility] [place] [facility] [address] [id number] [place] [address]- 7757 Jan, [facility] [place] [facility] [address] [id number], [place] [address]- 1753 Jan, [facility] [place] [facility] [address] [id number] [place] [address]- 9032 Jan, [facility] [place] [facility] [address] [id number] [place] [address] 2546 Jan, [facility] [address] [id number] [place] [address]- 7691 Jan, [facility] [address] [id number] [place] [address]- 8122 Dec, [facility] [address] [id number] [place] [address]- 5006 Dec, [facility] [address] [id number] [place] [address]- 6070 Nov, [facility] [address] [id number] [place] [address]- 6324 Nov, [facility] [address] [id number] [place] [address]- 8599 Nov, [facility] [address] [id number] [place] [address]- 3791 October, [facility] [address] [id number] [place] [address]- 0680 October, [facility] [address] [id number] [place] [address]- 3707 October, [facility] [address] [id number] [place] [address]- 5653 October, [facility] [address] [id number] [place] [address]- 6078 October, [facility] [address] [id number] [place] [address]- 2141 October, [facility] [place] [facility] [address] [id number] [place] [address]- 1591 October, [facility] [address] [id number] [place] [address]- 4856 Sep, [facility] [address] [id number] [place] [address]- 8907 Sep, [facility] [address] [id number] [place] [address]- 4439 26 Sep, 2011 [facility] [place] [facility] [address] [id number] [place] [address]- 9296 25 Sep, 2011 [facility] [place] [facility] [address] [id number] [place] [address]- 3944 24 Sep, 2011 [facility] [place] [facility] [address] [id number] [place] [address]- 6102 19 Sep, 2011 [facility] [place] [facility] [address] [id number] [place] [address]- 1334 17 Sep, 2011 [facility] [place] [facility] [address] [id number] [place] [address]- 2471 16 Sep, 2011 [facility] [place] [facility] [address] [id number] [place] [address]- 9013 16 Sep, 2011 [facility] [place] [facility] [address] [id number] [place] [address]- 2327 14 Sep, 2011 [facility] [place] [facility] [address] [id number] [place] [address]- 9982 13 Sep, 2011 [facility] [place] [facility] [address] [id number] [place] [address]- 4753 10 Sep, 2011 [facility] [place] [facility] [address] [id number] [place] [address]- 3722 09 Sep, 2011 [facility] [place] [facility] [address] [id number], [place] [address]- 3517 27 Aug, 2011 [facility] [place] [facility] [address] [id number] [place] [address]- 1722 12 Aug, 2011 [facility] [place] [facility] [address] [id number] [place] [address]- 4931 08 Aug, 2011 [facility] [place] [facility] [address] [id number] [place] [address]- 6113 06 Aug, 2011 [facility] [place] [facility] [address] [id number], [place] [address]- 3848 28 Jul, 2011 [facility] [address] [id number] [place] [address]- 9556 22 Jul, 2011 [facility] [place] [facility] [address] [id number] [place] [address] 2546 16 Jul, 2011 [facility] [place] [facility] [address] [id number] [place] [address] 2546 15 Jul, 2011 [facility] [place] [facility] [address] [id number] [place] [address] 2546 14 Jul, 2011 [facility] [address] [id number] [place] [address]- 3316 10 Jul, 2011 [facility] [place] [facility] [address] [id number] [place] [address]- 1355 30 Jun, 2011 [facility] [address] [id number] [place] [address]- 4794 05 Jun, 2011 [facility] [address] [id number] [place] [address]- 0474 Jun, [facility] [place] [facility] [address] [id number] [place] [address]- 2713 Jun, [facility] [address] [id number] [place] [address]- 5968 Jun, [facility] [address] [id number] [place] [address] 2546 May, [facility] [place] [facility] [address] [id number] [place] [address] 2546 May, [facility] [place] [facility] [address] [id number] [place] [address] 2546 May, [facility] [place] [facility] [address] [id number] [place] [address]- 2546 14 May, 2011 [facility] [place] [facility] [address] [id number] [place] [address] 2545 May, [facility] [place] [facility] [address] [id number] [place] [address]- 8686 May, [facility] [place] [facility] [address] [id number] [place] [address]- 5845 May, [facility] [place] [facility] [address] [id number] [place] [address]- 1412 Apr, [facility] [place] [facility] [address] [id number] [place] [address]- 1159 Apr, [facility] [place] [facility] [address] [id number] [place] [address]- 9886 Apr, [facility] [place] [facility] [address] [id number] [place] [address]- 1823 Apr, [facility] [place] [facility] [address] [id number] [place] [address]- 1907 Apr, [facility] [place] [facility] [address] [id number] [place] [address]- 0716 Apr, [facility] [place] [facility] [address] [id number] [place] [address]- 3491 Mar, [facility] [place] [facility] [address] [id number] [place] [address]- 1440 Mar, [facility] [place] [facility] [address] [id number] [place] [address]- 4892 Mar, [facility] [place] [facility] [address] [id number] [place] [address]- 2005 Mar, [facility] [place] [facility] [address] [id number] [place] [address]- 0870 Jan, [facility] [place] [facility] [address] [id number] [place] [address]- 7821 Dec, [facility] [place] [facility] [address] [id number] [place] [address]- 8850 Dec, [facility] [place] [facility] [address] [id number], [place] [address]- 6786 October, [facility] [address] [id number] [place] [address]- 1398 Sep, [facility] [place] [facility] [address] [id number] [place] [address]- 1135 14 Sep, 2010 [facility] [place] [facility] [address] [id number] [place] [address]- 7276 17 Jul, 2010 [facility] [place] [facility] [address] [id number] [place] [address]- 6250 16 Jul, 2010 [facility] [place] [facility] [address] [id number] [place] [address]- 4844 31 May, 2010 [facility] [place] [facility] [address] [id number] [place] [address]- 4530 May, [facility] [place] [facility] [address] [facility] [id number] [place] [address]- 4017 May, [facility] [place] [facility] [address] [facility] [id number] [place] [address]- 7917 May, [facility] [place] [facility] [address] [facility] [id number] [place] [address]- 4101 Apr, [facility] [place] [facility] [address] [facility] [id number] [place] [address]- 0043 Apr, [facility] [place] [facility] [address] [facility] [id number], [place] [address]- 7745 Apr, [facility] [place] [facility] [address] [id number] [place] [address]- 1528 Apr, [facility] [place] [facility] [address] [facility] [id number] [place] [address]- 2535 Apr, [facility] [place] [facility] [address] [facility] [id number] [place] [address]- 9483 Mar, [facility] [place] [facility] [address] [facility] [id number] [place] [address]- 2546 14 Mar, 2010 [facility] [place] [facility] [address] [id number] [place] [address]- 5911 13 Mar, 2010 [facility] [address] [id number] [place] [address]- 3581 12 Mar, 2010 [facility] [place] [facility] [address] [id number] [place] [address]- 8907 Jan, [facility] [place] [facility] [address] [id number] [place] [address]- 2274 15 Dec, 2009 [facility] [place] [facility] [address] [id number] [place] [address]- 4699 Sep, [facility] [place] [facility] [address] [id number] [place] [address]- 5080 08 May, 2009 [facility] [place] [facility] [address] [facility] [id number] [place] [address]- 6342 May, [facility] [place] [facility] [address] [facility] [id number] [place] [address]- 0304 May, [facility] [place] [facility] [address] [id number] [place] [address]- 1930 17 Apr, 2009 [facility] [place] [facility] [address] [facility] [id number] [place] [address]- 3865 17 Apr, 2009 [facility] [place] [facility] [address] [facility] [id number] [place] [address]- 6865 Apr, [facility] [place] [facility] [address] [facility] [id number] [place] [address]- 8327 10 Apr, 2009 [facility] [place] [facility] [address] [id number] [place] [address]- 5463 09 Apr, 2009 [facility] [place] [facility] [address] [id number] [place] [address]- 0664 15 Mar, 2009 [facility] [place] [facility] [address] [facility] [id number] [place] [address]- 3505 15 Mar, 2009 [facility] [place] [facility] [address] [id number] [place] [address]- 3713 Jul, IMMUNIZATIONS No Known Immunizations SOCIAL HISTORY Never Assessed REASON FOR VISIT radha Marin PLAN OF CARE Activity Details Follow Up 6 Weeks Reason: VITAL SIGNS Height 62 in 2017-04-09 Weight 251.9 lbs 2017-04-09 Heart Rate 64 bpm 2017-04-09 Respiratory Rate 18 2017-04-09 BMI 46.07 kg/m2 2017-04-09 Blood pressure systolic 120 mmHg 2017-04-09 Blood pressure diastolic 82 mmHg 2017-04-09 MEDICATIONS Medication Instructions Dosage Frequency Start Date End Date Duration Status Ibuprofen 800 MG Orally Three times a day take 1 tablet (800 mg) by oral route 3 times per day with food 8h Mar, 30 days Active Ropinirole HCl 4 mg Orally at bedtime 1 tablet Active Ondansetron HCl 8 mg 1 tablet by Oral route every 8 hours PRN Jul, Active Estradiol 0.5 MG Orally Once a day 2 tablet by Oral route 1 time per day 24h Apr, Active Benadryl 25 MG Orally at bedtime as needed for sleep 1-2 capsule as needed Active Prozac 40 MG Orally Once a day for depression 1 capsules Active RESULTS No Results PROCEDURES Procedure Date Ordered Result Body Site [facility] VISIT ESTABLISHED PATIENT Apr 09, 2017 INSTRUCTIONS MEDICATIONS ADMINISTERED No Known Medications MEDICAL (GENERAL) HISTORY Type Description Date Medical [...] vitamin D deficiency Medical History Left kidney clear cell carcinoma Surgical History arthroscopic knee surgery- Dr Figueroa [...] Ovaries removed Surgical History Ts & As Surgical History ventral incisional hernia repair- Dr. Daniel 08/2017 Hospitalization History Cellulitis-[facility] 12/20/15 Hospitalization History [facility]- Abd pain 03/07/2017 [facility]- Abd pain 03/14/2017 [facility]- No bowel movement, rash 04/13/2017 [facility] History [facility]- Abd pain r/t kidney surgery on 04/17/2017 Hospitalization History [facility]- Abd pain r/t kidney surgery on 04/18/2017 Hospitalization History [facility]- Lower abd pain 04/30/2017 Hospitalization History [facility]- Cannot urinate 05/30/2017 Hospitalization History [facility]- Pancreatitis Sx 06/29/2017 Hospitalization History [facility]- Stomach pain 07/22/2017 Hospitalization History [facility]- Left side pain 08/12/2017 Hospitalization History [facility]- Incision site infection 08/30/2017 Hospitalization History [facility]- Post Op Seroma/Hematoma Left Abdomen. Discharged 09/04/17- Dr Daniel 09/02/2017 Hospitalization History [facility]- Right shoulder and back pain 2017
--- OUTSIDE RECORDS SUMMARY | 2017-11-11 09:24 | XMS REPORT ---
Author Author SAI CARMEN [facility] Address [address] [place] [address] Care Team Providers Care Dredge Engineer Name Role Phone CARMEN GIBBS Unavailable PROBLEMS Type Condition ICD9-CM Code SRG27-JO Code Onset Dates Condition Status SNOMED Code Problem Asthma J45.909 Active 941035207 Problem Atelectasis J98.11 Active 49281214 Problem Polydipsia R63.1 Active 92836418 Problem Chronic fatigue R53.82 Active 68218817 Problem Moderate episode of recurrent major depressive disorder F33.1 Active 492416332 Problem Generalized social phobia F40.11 Active 64686678 Problem Trichotillomania F63.3 Active 28842809 Problem Restless leg syndrome G25.81 Active 78128682 Problem Chronic post-traumatic stress disorder (PTSD) F43.12 Active 674332186 Problem History of renal cell carcinoma Z85.528 Active 172609148 Problem Nodule of left lung R91.1 Active 222406745 Problem Chronic tension-type headache, intractable G44.221 Active 284640516 Problem Hyperlipidemia, mixed E78.2 Active 357429057 Problem Hirsuties L68.0 Active 438316301 Problem Morbid (severe) obesity due to excess calories E66.01 Active 926825329 Problem FH: polycystic ovary Z84.2 Active 028725674 Problem Chronic pancreatitis K86.1 Active 922272729 ALLERGIES No Information ENCOUNTERS Encounter Location Date Diagnosis [facility] [address] [facility] [id number] [address] Sep, [facility] [address] [id number] [address] Sep, Medicare annual wellness visit, initial Z00.00 [facility] [address] [id number] [address] Aug, [place] [id number] [place] [address] 06466- 6126 Jul, Restless leg syndrome G25.81 and B12 deficiency E53.8 [place] [address] [place] [id number] [place] [address] 47367- 2914 Jul, [place] [address] [id number] [place] [address] 56614- 3187 Jul, [place] [address] [address] [id number] [place] [address] 04808- 6226 Jun, [place] [id number] [place] [address] 30648- 4818 Jun, Fatigue, unspecified type R53.83 ; History of renal cell carcinoma Z85.528 ; Chronic pancreatitis K86.1 ; Restless leg syndrome G25.81 ; Dark urine R82.99 and BMI 45.0-49.9, adult Z68.42 [place] [address] [id number] [place] [address] 69478- 7868 Jun, [place] [address] [address] [id number] [place] [address] 83931- 8727 Jun, [place] [id number] [place] [address] 46639- 8138 Jun, [place] [id number] [place] [address] 25236- 1121 Jun, [place] [address] [id number] [place] [address] 92619- 9321 May, Chronic post-traumatic stress disorder (PTSD) F43.12 ; Moderate episode of recurrent major depressive disorder F33.1 ; Trichotillomania F63.3 and Generalized social phobia F40.11 [place] [id number] [place] [address] 81211- 3546 May, [place] [address] [id number] [place] [address] 72362- 6202 May, Chronic post-traumatic stress disorder (PTSD) F43.12 ; Moderate episode of recurrent major depressive disorder F33.1 ; Trichotillomania F63.3 and Generalized social phobia F40.11 [place] [id number] [place] [address] 14534- 5205 07 May, 2017 Hyperlipidemia, mixed E78.2 ; Morbid (severe) obesity due to excess calories E66.01 ; Chronic post-traumatic stress disorder (PTSD) F43.12 ; Moderate episode of recurrent major depressive disorder F33.1 ; Trichotillomania F63.3 and Generalized social phobia F40.11 [place] [id number] [place] [address] 49974- 2882 30 Apr, 2017 [place] [address] [place] [id number] [place] [address] 59988- 4923 29 Apr, 2017 Hyperlipidemia, mixed E78.2 ; Morbid (severe) obesity due to excess calories E66.01 ; Chronic post-traumatic stress disorder (PTSD) F43.12 ; Moderate episode of recurrent major depressive disorder F33.1 ; Trichotillomania F63.3 and Generalized social phobia F40.11 [place] [id number] [place] [address] 40211- 5264 Apr, Trichotillomania F63.3 ; Generalized social phobia F40.11 ; Chronic post-traumatic stress disorder (PTSD) F43.12 and Moderate episode of recurrent major depressive disorder F33.1 [place] [id number] [place] [address] 14868- 6304 Apr, [place] [id number] [place] [address] 51997- 4743 Apr, [place] [address] [address] [id number] [place] [address] 35204- 7110 24 Mar, 2017 Moderate episode of recurrent major depressive disorder F33.1 ; Trichotillomania F63.3 ; Chronic post-traumatic stress disorder (PTSD) F43.12 ; Generalized social phobia F40.11 and Restless leg syndrome G25.81 [facility] [id number] [place] [address] 40790- 1379 Mar, [facility] [address] 36739- 2443 Mar, [facility] [address] [id number] [place] [address] 84781- 7638 Feb, Left kidney mass N28.89 [facility] [address] 50479- 7025 Jan, [facility] [address] [id number] [place] [address] 35460- 8862 Dec, Polydipsia R63.1 ; Chronic pancreatitis K86.1 and Fatigue, unspecified type R53.83 [place] [address] [id number] [place] [address] 63327- 3433 Nov, [place] [id number] [place] [address] 46991- 4558 Nov, [facility] [id number] [place] [address] 48802- 4217 Nov, Headache around the eyes R51 [place] [id number] [place] [address] 76613- 3504 Nov, [facility] [id number] [place] [address] 11848- 2775 October, STD exposure Z20.2 [facility] [address] [id number] [place] [address] 99009- 3811 October, STD exposure Z20.2 [facility] [id number] [place] [address] 90406- 2030 October, Chronic post-traumatic stress disorder (PTSD) F43.12 ; Generalized social phobia F40.11 ; Trichotillomania F63.3 and Restless leg syndrome G25.81 [facility] [address] [id number] [place] [address] 94349- 6396 October, [facility] [id number] [place] [address] 69352- 9276 Sep, [facility] [id number] [place] [address] 86354- 3005 17 Aug, 2016 [place] [id number] [place] [address] 18755- 7096 Aug, [place] [address] 88353- 8218 Aug, Neck mass R22.1 [place] [address] 79464- 0788 Aug, Atelectasis J98.11 [place] [address] [address] [id number] [place] [address] 00853- 0613 28 Jul, 2016 Hyperlipidemia, mixed E78.2 ; Atypical pneumonia J18.9 and Neck mass R22.1 [place] [id number] [place] [address] 71788- 3375 15 Jul, 2016 Hemoptysis R04.2 [place] [id number] [place] [address] 39680- 2217 08 Jul, 2016 Acute non-recurrent pansinusitis J01.40 ; Hemoptysis R04.2 ; Polydipsia R63.1 and Malaise R53.81 [facility] [place] [id number] [place] [address] 88586 -3751 May, Other viral agents as the cause of diseases classified elsewhere B97.89 and Acute upper respiratory infection, unspecified J06.9 [facility] [place] [id number] [place] [address] 72559 -7700 Mar, Nausea R11.0 [facility] [place] [id number] [place] [address] 09979 -0319 Dec, Hives L50.9 [place] [address] 35639- 4407 14 Dec, 2015 [facility] [place] [address] [address]49 10 Dec, 2015 Cutaneous abscess of limb, unspecified L02.419 ; Cellulitis of unspecified part of limb L03.119 ; Encounter for incision and drainage procedure Z01.89 and Encounter for recheck of abscess following incision and drainage Z09 [facility] [place] [id number] [place] [address] 01707 -2829 09 Dec, 2015 Abscess of leg, right L02.415 [place] [address] [address] [id number] [place] [address] 58876- 7935 08 Dec, 2015 Cellulitis of unspecified part of limb L03.119 and Cutaneous abscess of limb, unspecified L02.419 [place] [address] [address] [id number] [place] [address] 43198- 5790 Dec, [place] [address] [id number] [place] [address] 66666- 4583 Dec, [facility] [place] [id number] [place] [address] 86843 -8728 Aug, [place] [address] [address] [id number] [place] [address] 53662- 8194 Aug, [facility] [place] [id number] [place] [address] 18150 -2347 Jul, Pain in unspecified wrist M25.539 and Back pain, thoracic M54.6 [facility] [place] [id number] [place] [address] 15838 -1978 Jun, Strain of right wrist, initial encounter S66.911A [place] [address] [address] [id number] [place] [address] 89700- 3563 Jun, Chronic pancreatitis, unspecified pancreatitis type K86.1 ; Hirsuties L68.0 ; Morbid (severe) obesity due to excess calories E66.01 ; Chronic pancreatitis K86.1 and Asthma J45.909 [place] [address] [place] [id number] [place] [address] 20071- 8795 May, [facility] [address] 01140- 0801 May, Hyperlipidemia, mixed E78.2 and Muscle spasm of back M62.830 [facility] [address] [id number] [place] [address] 32006- 4377 Apr, [facility] [address] 62911- 8531 Apr, Torticollis M43.6 [facility] [address] 03059- 0411 Apr, Right-sided thoracic back pain M54.6 [facility] [id number] [place] [address] 70619- 4662 Mar, Rash R21 [facility] [address] 97349- 7035 Mar, [facility] [id number] [place] [address] 82228- 2144 Jan, [facility] [id number] [place] [address] 43542- 0516 Dec, [facility] [id number] [place] [address] 84984- 6035 Dec, Urinary frequency 788.41 and Nocturia more than twice per night 788.43 [facility] [id number] [place] [address] 61976- 2521 Nov, [facility] [id number] [place] [address] 41070- 6550 Nov, [facility] [id number] [place] [address] 74652- 7065 Nov, Abdominal pain 789.00 [facility] [id number] [place] [address] 59582- 7037 October, TDAP DX V06.1 [facility] [address] [id number] [address]- 5558 October, [facility] [address] [address]- 9116 October, Disturbance of skin sensation 782.0 ; Wrist pain, right 719.43 ; Hyperlipidemia 272.4 and Skin lesion of face 709.9 [facility] [address] [facility] [id number] [address]- [address] Sep, [facility] [address] [facility] [id number] [place] [address]- 9227 Sep, [facility] [address] [id number] [address]- 7364 Aug, [facility] [address] [address]- 8758 Aug, [facility] [address] [id number] [address]- 7300 Aug, [facility] [id number] [address]- 3096 Aug, [facility] [id number] [address]- 7626 Aug, [facility] [address] [id number] [address]- 9492 Aug, [facility] [address] [id number] [address]- 0842 Aug, [facility] [address] [facility] [id number] [place] [address]- 1451 Aug, [facility] [address] [id number] [address]- 7694 Aug, [facility] [address] [id number] 1665 Aug, [facility] [address] [address]- 2110 Aug, [facility] [place] [facility] [address] [id number] [place] [address]- 7854 Aug, [facility] [place] [facility] [address] [id number] [place] [address]- 4386 Aug, [facility] [place] [facility] [address] [id number] [place] [address]- 8925 Aug, [facility] [place] [facility] [address] [id number] [place] [address]- 9566 Jul, [facility] [place] [facility] [address] [id number] [place] [address]- 4291 Jul, 2014 [facility] [place] [facility] [address] [id number] [place] [address]- 9862 Jul, [facility] [place] [facility] [address] [id number] [place] [address]- 1293 Jul, [facility] [place] [facility] [address] [id number] [place] [address]- 2966 Jul, [facility] [place] [facility] [address] [id number] [place] [address]- 7115 Jul, [facility] [place] [facility] [address] [id number] [place] [address]- 4395 Jun, [facility] [place] [facility] [address] [id number] [place] [address]- 2103 Jun, [facility] [place] [facility] [address] [id number] [place] [address]- 2611 Jun, [facility] [place] [facility] [address] [id number] [place] [address]- 3694 Jun, [facility] [place] [facility] [address] [id number] [place] [address]- 2548 Jun, [facility] [place] [facility] [address] [id number] [place] [address]- 5220 Jun, [facility] [place] [facility] [address] [id number] [place] [address]- 4319 15 Jun, 2014 [facility] [place] [facility] [address] [id number] [place] [address]- 7850 15 Jun, 2014 [facility] [place] [facility] [address] [id number] [place] [address]- 8842 May, [facility] [place] [facility] [address] [id number] [place] 3585 May, [facility] [place] [facility] [address] [id number] [place] [address]- 3448 May, [facility] [place] [facility] [address] [id number] [place] [address]- 3801 May, [facility] [place] [facility] [address] [id number] [place] [address]- 5320 May, [facility] [place] [facility] [address] [id number] [place] [address]- 3485 May, [facility] [place] [facility] [address] [id number] [place] [address]- 2304 May, [facility] [place] [facility] [address] [id number] [place] [address]- 7360 May, [facility] [place] [facility] [address] [id number] [place] [address]- 2799 May, [facility] [place] [facility] [address] [id number] [place] [address]- 5087 May, [facility] [place] [facility] [address] [id number] [place] [address]- 0917 May, [facility] [place] [facility] [address] [id number] [place] [address]- 5791 May, [facility] [place] [facility] [address] [id number] [place] [address]- 7757 Apr, [facility] [place] [facility] [address] [id number] [place] [address]- 3049 Apr, [facility] [place] [facility] [address] [id number] [place] [address]- 7658 Apr, [facility] [place] [facility] [address] [id number] [place] [address]- 4283 Apr, [facility] [place] [facility] [address] [id number] [place] [address]- 9969 Apr, [facility] [place] [facility] [address] [id number] [place] [address]- 9193 Apr, [facility] [place] [facility] [address] [id number] [place] [address]- 8788 Apr, [facility] [place] [facility] [address] [id number] [place] [address]- 6068 Apr, [facility] [place] [facility] [address] [id number] [place] [address]- 4665 Apr, [facility] [place] [facility] [address] [id number] [place] [address]- 0867 Apr, [facility] [place] [facility] [address] [id number] [place] [address]- 6019 Apr, [facility] [place] [facility] [address] [id number] [place] [address]- 4702 Apr, [facility] [place] [facility] [address] [id number] [place] [address]- 3643 Mar, [facility] [place] [facility] [address] [id number] [place] [address]- 9196 Mar, [facility] [place] [facility] [address] [id number] [place] [address]- 6078 Mar, [facility] [place] [facility] [address] [id number] [place] [address]- 3648 Mar, [facility] [place] [facility] [address] [id number] [place] [address]- 4859 Feb, [facility] [place] [facility] [address] [id number] [place] [address]- 8496 Feb, 2013 [facility] [place] [facility] [address] [id number] [place] [address]- 3689 Feb, 2013 [facility] [place] [facility] [address] [id number] [place] [address]- 5387 Feb, 2013 [facility] [place] [facility] [address] [id number] [place] [address]- 7990 Feb, 2013 [facility] [place] [facility] [address] [id number] [place] [address]- 7170 Feb, 2013 [facility] [place] [facility] [address] [id number] [place] [address]- 8025 Jan, [facility] [place] [facility] [address] [id number] [place] [address]- 9826 Jan, [facility] [place] [facility] [address] [id number] [place] [address]- 1559 Jan, [facility] [place] [facility] [address] [id number] [place] [address]- 2358 Jan, [facility] [place] [facility] [address] [id number] [place] [address]- 6842 Jan, [facility] [place] [facility] [address] [id number] [place] [address]- 6463 Jan, [facility] [place] [facility] [address] [id number] [place] [address]- 4222 Jan, [facility] [place] [facility] [address] [id number] [place] [address]- 5328 Jan, [facility] [place] [facility] [address] [id number] [place] [address]- 2982 Jan, [facility] [place] [facility] [address] [id number] [place] [address]- 4983 Jan, [facility] [place] [facility] [address] [id number] [place] [address]- 3642 Jan, [facility] [place] [facility] [address] [id number] [place] [address]- 3447 Jan, [facility] [place] [facility] [address] [id number] [place] [address]- 4597 Jan, [facility] [place] [facility] [address] [id number] [place] [address]- 8324 Jan, [facility] [place] [facility] [address] [id number] [place] [address]- 3247 Dec, [facility] [place] [facility] [address] [id number] [place] [address]- 1298 Dec, [facility] [place] [facility] [address] [id number] [place] [address]- 0111 Dec, [facility] [place] [facility] [address] [id number] [place] [address]- 2690 Dec, [facility] [place] [facility] [address] [id number] [place] [address]- 3303 Nov, [facility] [place] [facility] [address] [id number] [place] [address]- 7605 Nov, [facility] [place] [facility] [address] [id number] [place] [address]- 0124 Nov, [facility] [place] [facility] [address] [id number] [place] [address]- 6400 Nov, [facility] [place] [facility] [address] [id number] [place] [address]- 3247 Nov, [facility] [place] [facility] [address] [id number] [place] [address]- 5005 October, [facility] [place] [facility] [address] [id number] [place] [address]- 3551 October, [facility] [place] [facility] [address] [id number] [place] [address]- 9829 October, [facility] [place] [facility] [address] [id number] [place] [address] October, [facility] [address] [id number] [place] [address] October, [facility] [address] [id number] [place] [address] October, [facility] [address] [id number] [place] [address] October, [facility] [address] [id number] [place] [address] October, [facility] [address] [id number] [place] [address] October, [facility] [address] [id number] [place] [address] October, [facility] [address] [id number] [place] [address] October, [facility] [address] [id number] [place] [address] October, [facility] [address] [id number] [place] [address] October, [facility] [address] [id number] [place] [address] October, [facility] [address] [id number] [place] [address] Sep, [facility] [place] [facility] [address] [id number] [place] [address] Sep, [facility] [place] [facility] [address] [id number] [place] [address] Sep, [facility] [place] [facility] [address] [id number] [place] [address] Sep, [facility] [place] [facility] [address] [id number] [place] [address] Sep, [facility] [place] [facility] [address] [id number] [place] [address] Sep, [facility] [place] [facility] [address] [id number] [place] [address] Sep, [facility] [place] [facility] [address] [id number] [place] [address] Sep, [facility] [place] [facility] [address] [id number] [place] [address] Sep, [facility] [place] [facility] [address] [id number] [place] [address] Sep, [facility] [place] [facility] [address] [id number] [place] [address] Sep, [facility] [place] [facility] [address] [id number] [place] [address] Sep, [facility] [place] [facility] [address] [id number] [place] [address] Sep, [facility] [place] [facility] [address] [id number] [place] [address] Sep, [facility] [place] [facility] [address] [id number] [place] [address] Sep, [facility] [place] [facility] [address] [id number] [place] [address] Aug, [facility] [place] [facility] [address] [id number] [place] [address] Aug, [facility] [place] [facility] [address] [id number] [place] [address] Aug, [facility] [place] [facility] [address] [id number] [place] [address] Aug, [facility] [place] [facility] [address] [id number] [place] [address] Jul, [facility] [place] [facility] [address] [id number] [place] [address] 06 Jul, 2013 [facility] [place] [facility] [address] [id number] [place] [address] 06 Jul, 2013 [facility] [place] [facility] [address] [id number] [place] [address] 03 Jul, 2013 [facility] [place] [facility] [address] [id number] [place] [address] 15 Jun, 2013 [facility] [place] [facility] [address] [id number] [place] [address] 15 Jun, 2013 [facility] [place] [facility] [address] [id number] [place] [address] Jun, [facility] [place] [facility] [address] [id number] [place] [address] Jun, [facility] [place] [facility] [address] [id number] [place] [address] Jun, [facility] [place] [facility] [address] [id number] [place] [address] Jun, [facility] [place] [facility] [address] [id number] [place] [address] 386[address] Jun, [facility] [place] [facility] [address] [id number] [place] [address] Jun, [facility] [place] [facility] [address] [id number] [place] [address] May, [facility] [place] [facility] [address] [id number] [place] [address] 28[address] May, [facility] [place] [facility] [address] [id number] [place] [address] 4727 18 May, 2013 [facility] [place] [facility] [address] [id number] [place] [address] 9467 18 May, 2013 [facility] [place] [facility] [address] [id number] [place] [address] 3457 17 May, 2013 [facility] [place] [facility] [address] [id number] [place] [id number] 17 May, 2013 [facility] [address] [id number] [place] [address] 4[address] 17 May, 2013 [facility] [address] [id number] [place] [address] 4650 17 May, 2013 [facility] [address] [id number] [place] [address]- 2593 16 May, 2013 [facility] [address] [id number] [place] [address] 1575 16 May, 2013 [facility] [address] [id number] [place] [address] 8520 14 May, 2013 [facility] [address] [id number] [place] [address] 5867 14 May, 2013 [facility] [address] [id number] [place] [address]- 7056 13 May, 2013 [facility] [address] [id number] [place] [address]- 4033 13 May, 2013 [facility] [address] [id number] [place] [address]- 8086 12 May, 2013 [facility] [address] [id number] [place] [address]- 8243 12 May, 2013 [facility] [address] [id number] [place] [address]- 5927 11 May, 2013 [facility] [address] [id number] [place] [address] 11 May, 2013 [facility] [place] [facility] [address] [id number] [place] [address]- 6078 Apr, [facility] [address] [id number] [place] [address] Apr, [facility] [address] [id number] [place] [address]- 2466 Apr, [facility] [address] [id number] [place] [address] 2562 Apr, [facility] [address] [id number] [place] [address]- 9743 Aug, [facility] [address] [id number] [place] [address]- 7981 Aug, [facility] [address] [id number] [place] [address]- 5541 Aug, [facility] [address] [id number] [place] [address]- 9669 Aug, [facility] [address] [id number] [place] [address]- 8664 Jul, [facility] [address] [id number] [place] [address]- 0022 Jun, [facility] [address] [id number] [place] [address]- 4720 Jun, [facility] [address] [id number] [place] [address] 8301 Jun, [facility] [address] [id number] [place] [address] 1681 Jun, [facility] [address] [id number] [place] [address] 09[address] May, [facility] [place] [facility] [address] [id number] [place] [address]- 2482 May, [facility] [place] [facility] [address] [id number] [place] [address] 9051 May, [facility] [place] [facility] [address] [id number] [place] [address]- 3620 May, [facility] [place] [facility] [address] [id number] [place] [address]- 6849 May, [facility] [place] [facility] [address] [id number] [place] [address]- 4324 May, [facility] [place] [facility] [address] [id number] [place] [address]- 9310 May, [facility] [place] [facility] [address] [id number] [place] [address]- 8788 Apr, [facility] [place] [facility] [address] [id number] [place] [address]- 2559 Apr, [facility] [place] [facility] [address] [id number] [place] [address]- 9430 Apr, [facility] [place] [facility] [address] [id number] [place] [address], [place] [address]- 3067 Apr, [facility] [place] [facility] [address] [id number] [place] [address]- 8711 Apr, [facility] [place] [facility] [address] [id number] [place] [address]- 0839 Apr, [facility] [place] [facility] [address] [id number] [place] [address]- 1217 Apr, [facility] [place] [facility] [address] [facility] [id number] [place] [address]- 7956 Mar, [facility] [place] [facility] [address] [facility] [id number] [place] [address]- 0366 Mar, [facility] [place] [facility] [address] [id number] [place] [address]- 7116 Mar, [facility] [place] [facility] [address] [id number] [place] [address]- 0761 Mar, [facility] [place] [facility] [address] [id number] [place] [address]- 1733 Mar, [facility] [place] [facility] [address] [facility] [id number] [place] [address]- 1752 Mar, [facility] [place] [facility] [address] [id number] [place] [address]- 7406 Mar, [facility] [place] [facility] [address] [id number] [place] [address]- 8011 Mar, [facility] [place] [facility] [address] [id number] [place] [address]- 9171 Mar, [facility] [place] [facility] [address] [id number] [place] [address]- 5702 Mar, [facility] [place] [facility] [address] [id number] [place] [address]- 7778 Mar, [facility] [place] [facility] [address] [id number] [place] [address] Mar, [facility] [place] [facility] [address] [id number] [place] [address]- 9842 Feb, [facility] [place] [facility] [address] [id number] [place] [address]- 8477 Jan, [facility] [place] [facility] [address] [id number] [place] [address]- 9953 Jan, [facility] [place] [facility] [address] [id number] [place] [address]- 0629 Jan, [facility] [place] [facility] [address] [id number] [place] [address]- 5340 Jan, [facility] [place] [facility] [address] [id number] [place] [address]- 0564 Jan, [facility] [place] [facility] [address] [id number] [place] [address]- 8414 Dec, [facility] [place] [facility] [address] [id number] [place] [address]- 8392 Dec, [facility] [place] [facility] [address] [id number] [place] [address]- 7466 Nov, [facility] [place] [facility] [address] [id number] [place] [address]- 8485 Nov, [facility] [place] [facility] [address] [id number] [place] [address]- 4768 Nov, [facility] [address] [id number] [place] [address]- 4052 October, [facility] [address] [id number] [place] [address]- 8835 October, [facility] [address] [id number] [place] [address]- 6687 October, [facility] [address] [id number] [place] [address]- 6574 October, [facility] [address] [id number] [place] [address]- 3984 October, [facility] [address] [id number] [place] [address]- 3842 October, [facility] [address] [id number] [place] [address]- 0256 October, [facility] [address] [id number] [place] [address]- 0050 Sep, [facility] [address] [id number] [place] [address]- 2308 Sep, [facility] [address] [id number] [place] [address]- 1048 Sep, [facility] [address] [id number] [place] [address]- 4378 Sep, [facility] [place] [facility] [address] [id number] [place] [address]- 2923 24 Sep, 2011 [facility] [place] [facility] [address] [id number] [place] [address]- 5540 19 Sep, 2011 [facility] [place] [facility] [address] [id number] [place] [address]- 9903 17 Sep, 2011 [facility] [address] [id number] [place] [address]- 9015 16 Sep, 2011 [facility] [place] [facility] [address] [id number] [place] [address]- 1246 16 Sep, 2011 [facility] [place] [facility] [address] [id number] [place] [address]- 5555 14 Sep, 2011 [facility] [place] [facility] [address] [id number] [place] [address]- 1216 13 Sep, 2011 [facility] [place] [facility] [address] [id number] [place] [address]- 4464 10 Sep, 2011 [facility] [place] [facility] [address] [id number] [place] [address]- 1935 09 Sep, 2011 [facility] [place] [facility] [address] [id number] [place] [address]- 3954 27 Aug, 2011 [facility] [place] [facility] [address] [id number] [place] [address]- 3137 12 Aug, 2011 [facility] [place] [facility] [address] [id number] [place] [address]- 4111 08 Aug, 2011 [facility] [place] [facility] [address] [id number] [place] [address]- 9093 06 Aug, 2011 [facility] [place] [facility] [address] [id number] [place] [address]- 1339 28 Jul, 2011 [facility] [place] [facility] [address] [facility] [id number] [place] [address]- 8460 22 Jul, 2011 [facility] [place] [facility] [address] [id number] [place] [address]- 9939 16 Jul, 2011 [facility] [place] [facility] [address] [id number] [place] [address]- 9366 15 Jul, 2011 [facility] [place] [facility] [address] [id number] [place] [address]- 7041 14 Jul, 2011 [facility] [place] [facility] [address] [id number] [place] [address]- 0305 10 Jul, 2011 [facility] [place] [facility] [address] [facility] [id number] [place] [address]- 2803 Jun, [facility] [address] [id number] [place] [address]- 9669 Jun, [facility] [place] [facility] [address] [id number] [place] [address]- 0664 Jun, [facility] [place] [facility] [address] [id number] [place] [address]- 2753 Jun, [facility] [place] [facility] [address] [id number] [place] [address]- 4339 Jun, [facility] [address] [id number] [place] [address]- 0628 May, [facility] [place] [facility] [address] [id number] [place] [address]- 7846 May, [facility] [address] [id number] [place] [address]- 6631 May, [facility] [place] [facility] [address] [id number] [place] [address]- 8849 May, [facility] [place] [facility] [address] [id number] [place] [address]- 6795 May, [facility] [place] [facility] [address] [id number] [place] [address]- 2631 May, [facility] [place] [facility] [address] [id number] [place] [address]- 5608 May, [facility] [place] [facility] [address] [id number] [place] [address]- 2918 15 Apr, 2011 [facility] [place] [facility] [address] [id number] [place] [address]- 5788 Apr, [facility] [place] [facility] [address] [id number] [place] [address]- 3157 Apr, [facility] [place] [facility] [address] [id number] [place] [address]- 1291 Apr, [facility] [place] [facility] [address] [id number] [place] [address]- 6995 Apr, [facility] [place] [facility] [address] [id number] [place] [address]- 4961 Apr, [facility] [place] [facility] [address] [id number] [place] [address]- 9756 Mar, [facility] [place] [facility] [address] [id number] [place] [address]- 9814 Mar, [facility] [place] [facility] [address] [id number] [place] [address]- 1956 Mar, [facility] [place] [facility] [address] [id number] [place] [address]- 4812 Mar, [facility] [place] [facility] [address] [id number] [place] [address]- 6853 Jan, [facility] [place] [facility] [address] [id number] [place] [address]- 2659 Dec, [facility] [place] [facility] [address] [id number] [place] [address]- 5109 Dec, [facility] [place] [facility] [address] [id number] [place] [address]- 4432 October, [facility] [place] [facility] [address] [id number] [place] [address]- 3133 Sep, [facility] [place] [facility] [address] [id number] [place] [address]- 7237 14 Sep, 2010 [facility] [place] [facility] [address] [id number] [place] [address]- 3948 Jul, [facility] [place] [facility] [address] [id number] [place] [address]- 7297 16 Jul, 2010 [facility] [place] [facility] [address] [id number] [place] [address]- 1346 May, [facility] [place] [facility] [address] [id number] [place] [address]- 5289 May, [facility] [place] [facility] [address] [id number] [place] [address]- 2901 08 May, 2010 [facility] [place] [facility] [address] [id number] [place] [address]- 1096 May, [facility] [place] [facility] [address] [id number] [place] [address]- 8818 Apr, [facility] [place] [facility] [address] [id number] [place] [address]- 3636 Apr, [facility] [place] [facility] [address] [id number] [place] [address]- 9913 Apr, [facility] [place] [facility] [address] [id number] [place] [address]- 6605 Apr, [facility] [place] [facility] [address] [id number] [place] [address]- 9326 Apr, [facility] [place] [facility] [address] [id number] [place] [address]- 6203 Mar, [facility] [place] [facility] [address] [id number] [place] [address]- 6769 14 Mar, 2010 [facility] [place] [facility] [address] [id number] [place] [address]- 0538 13 Mar, 2010 [facility] [place] [facility] [address] [id number] [place] [address]- 1532 Mar, [facility] [place] [facility] [address] [id number] [place] [address]- 5902 Jan, [facility] [place] [facility] [address] [id number] [place] [address]- 7090 15 Dec, 2009 [facility] [place] [facility] [address] [id number] [place] [address]- 1941 10 Sep, 2009 [facility] [place] [facility] [address] [id number] [place] [address]- 9083 May, [facility] [place] [facility] [id number] [place] [address]- 2634 May, [facility] [id number] [place] [address]- 0510 May, [facility] [id number] [place] [address]- 1429 Apr, [facility] [id number] [place] [address]- 9985 Apr, [facility] [id number] [place] [address]- 9812 Apr, [facility] [id number] [place] [address] 696652- 9654 Apr, [facility] [id number] [place] [address] 795[address]- 7456 Apr, [facility] [id number] [place] [address]321- 9861 Mar, [facility] [id number] [place] [address]- 4788 Mar, [facility] [id number] [place] [address]- 9614 Jul, IMMUNIZATIONS No Known Immunizations SOCIAL HISTORY Never Assessed REASON FOR VISIT Requesting return call PLAN OF CARE VITAL SIGNS MEDICATIONS Unknown Medications RESULTS No Results PROCEDURES No Known procedures INSTRUCTIONS MEDICATIONS ADMINISTERED No Known Medications MEDICAL [...] As Hospitalization History Cellulitis-Via [facility]3] 12/20/15
--- OUTSIDE RECORDS SUMMARY | 2017-11-11 09:27 | XMS REPORT ---
Author Author SAI CARMEN [facility] Address [address] [place] [address] Care Team Providers Care Feed Mill Supervisor Name Role Phone CARMEN GIBBS Unavailable PROBLEMS Type Condition ICD9-CM Code [id number] Code Onset Dates Condition Status SNOMED Code Problem Asthma J45.909 Active 265503389 Problem Atelectasis J98.11 Active 13318855 Problem Polydipsia R63.1 Active 02782239 Problem Chronic fatigue R53.82 Active 07754362 Problem Moderate episode of recurrent major depressive disorder F33.1 Active 009946143 Problem Generalized social phobia F40.11 Active 60183361 Problem Trichotillomania F63.3 Active 46122712 Problem Restless leg syndrome G25.81 Active 86968313 Problem Chronic post-traumatic stress disorder (PTSD) F43.12 Active 155800085 Problem History of renal cell carcinoma Z85.528 Active 736066657 Problem Nodule of left lung R91.1 Active 354061622 Problem Chronic tension-type headache, intractable G44.221 Active 838834819 Problem Hyperlipidemia, mixed E78.2 Active 955887007 Problem Hirsuties L68.0 Active 141138258 Problem Morbid (severe) obesity due to excess calories E66.01 Active 221430761 Problem FH: polycystic ovary Z84.2 Active 071809578 Problem Chronic pancreatitis K86.1 Active 415562412 ALLERGIES No Information ENCOUNTERS Encounter Location Date Diagnosis [facility] [address] [facility] [id number] [address] Sep, [facility] [address] [id number] [address] Sep, Medicare annual wellness visit, initial Z00.00 [facility] [address] [id number] [address] Aug, [place] [address] [id number] [place] [address] 62090- 4968 Jul, Restless leg syndrome G25.81 and B12 deficiency E53.8 [place] [address] [place] [id number] [place] [address] 39227- 3081 Jul, [place] [address] [place] [id number] [place] [address] 51223- 4263 Jul, [place] [address] [place] [id number] [place] [address] 61846- 3095 Jun, [place] [address] [place] [id number] [place] [address] 32443- 0533 Jun, Fatigue, unspecified type R53.83 ; History of renal cell carcinoma Z85.528 ; Chronic pancreatitis K86.1 ; Restless leg syndrome G25.81 ; Dark urine R82.99 and BMI 45.0-49.9, adult Z68.42 [place] [address] [place] [id number] [place] [address] 09286- 6405 Jun, [place] [address] [place] [id number] [place] [address] 46513- 3501 Jun, [place] [address] [place] [id number] [place] [address] 85658- 5468 Jun, [place] [address] [place] [id number] [place] [address] 28292- 6109 Jun, [place] [address] [place] [id number] [place] [address] 89125- 2173 May, Chronic post-traumatic stress disorder (PTSD) F43.12 ; Moderate episode of recurrent major depressive disorder F33.1 ; Trichotillomania F63.3 and Generalized social phobia F40.11 [place] [id number] [place] [address] 07650- 4811 May, [place] [address] [place] [id number] [place] [address] 34191- 1814 May, Chronic post-traumatic stress disorder (PTSD) F43.12 ; Moderate episode of recurrent major depressive disorder F33.1 ; Trichotillomania F63.3 and Generalized social phobia F40.11 [place] [id number] [place] [address] 12694- 8502 07 May, 2017 Hyperlipidemia, mixed E78.2 ; Morbid (severe) obesity due to excess calories E66.01 ; Chronic post-traumatic stress disorder (PTSD) F43.12 ; Moderate episode of recurrent major depressive disorder F33.1 ; Trichotillomania F63.3 and Generalized social phobia F40.11 [place] [id number] [place] [address] 58176- 3671 30 Apr, 2017 [place] [address] [place] [id number] [place] [address] 15241- 8854 29 Apr, 2017 Hyperlipidemia, mixed E78.2 ; Morbid (severe) obesity due to excess calories E66.01 ; Chronic post-traumatic stress disorder (PTSD) F43.12 ; Moderate episode of recurrent major depressive disorder F33.1 ; Trichotillomania F63.3 and Generalized social phobia F40.11 [place] [id number] [place] [address] 63588- 4264 Apr, Trichotillomania F63.3 ; Generalized social phobia F40.11 ; Chronic post-traumatic stress disorder (PTSD) F43.12 and Moderate episode of recurrent major depressive disorder F33.1 [place] [id number] [place] [address] 82805- 5161 Apr, [place] [id number] [place] [address] 87879- 4055 Apr, [place] [address] [place] [id number] [place] [address] 97187- 0047 24 Mar, 2017 Moderate episode of recurrent major depressive disorder F33.1 ; Trichotillomania F63.3 ; Chronic post-traumatic stress disorder (PTSD) F43.12 ; Generalized social phobia F40.11 and Restless leg syndrome G25.81 [facility] [id number] [place] [address] 81778- 7548 Mar, [facility] [address] 26906- 4656 Mar, [facility] [address] [place] [id number] [place] [address] 13039- 7903 Feb, Left kidney mass N28.89 [facility] [address] 28502- 5574 Jan, [facility] [address] [place] [id number] [place] [address] 22293- 2735 Dec, Polydipsia R63.1 ; Chronic pancreatitis K86.1 and Fatigue, unspecified type R53.83 [place] [address] [place] [id number] [place] [address] 60785- 7348 Nov, [place] [address] [place] [id number] [place] [address] 53404- 7298 Nov, [facility] [address] [place] [id number] [place] [address] 47215- 4558 Nov, Headache around the eyes R51 [place] [address] [place] [id number] [place] [address] 51062- 9219 Nov, [facility] [address] [place] [address] 04644- 9246 October, STD exposure Z20.2 [facility] [address] [place] [id number] [place] [address] 43578- 5661 October, STD exposure Z20.2 [facility] [address] [place] [id number] [place] [address] 19717- 1186 October, Chronic post-traumatic stress disorder (PTSD) F43.12 ; Generalized social phobia F40.11 ; Trichotillomania F63.3 and Restless leg syndrome G25.81 [facility] [address] [place] [id number] [place] [address] 31016- 4777 October, [facility] [id number] [place] [address] 49331- 6203 Sep, [facility] [address] [place] [id number] [place] [address] 24305- 8828 17 Aug, 2016 [place] [address] [place] [id number] [place] [address] 19777- 0781 Aug, [place] [address] 77452- 9350 Aug, Neck mass R22.1 [place] [address] 50574- 2970 Aug, Atelectasis J98.11 [place] [address] [place] [id number] [place] [address] 57781- 3601 28 Jul, 2016 Hyperlipidemia, mixed E78.2 ; Atypical pneumonia J18.9 and Neck mass R22.1 [place] [address] [place] [id number] [place] [address] 78676- 7171 15 Jul, 2016 Hemoptysis R04.2 [place] [id number] [place] [address] 12000- 0155 08 Jul, 2016 Acute non-recurrent pansinusitis J01.40 ; Hemoptysis R04.2 ; Polydipsia R63.1 and Malaise R53.81 [facility] [place] [id number] [place] [address] 04338 -3393 May, Other viral agents as the cause of diseases classified elsewhere B97.89 and Acute upper respiratory infection, unspecified J06.9 [facility] [place] [id number] [place] [address] 60891 -1628 Mar, Nausea R11.0 [facility] [place] [id number] [place] [address] 16666 -2804 Dec, Hives L50.9 [place] [address] 05280- 1755 14 Dec, 2015 [facility] [place] [address] [address] 10 Dec, 2015 Cutaneous abscess of limb, unspecified L02.419 ; Cellulitis of unspecified part of limb L03.119 ; Encounter for incision and drainage procedure Z01.89 and Encounter for recheck of abscess following incision and drainage Z09 [facility] [place] [address] [place] [id number] [place] [address] 47319 -8358 09 Dec, 2015 Abscess of leg, right L02.415 [place] [address] [place] [id number] [place] [address] 11247- 3943 08 Dec, 2015 Cellulitis of unspecified part of limb L03.119 and Cutaneous abscess of limb, unspecified L02.419 [place] [address] [place] [id number] [place] [address] 40726- 1414 Dec, [place] [address] [place] [id number] [place] [address] 33307- 9143 Dec, [facility] [place] [address] [place] [id number] [place] [address] 53509 -9266 Aug, [place] [address] [place] [id number] [place] [address] 02644- 8872 Aug, [facility] [place] [address] [place] [address] 58559 -1344 Jul, Pain in unspecified wrist M25.539 and Back pain, thoracic M54.6 [facility] [place] [address] [place] [address] 80565 -3023 Jun, Strain of right wrist, initial encounter S66.911A [place] [address] [place] [id number] [place] [address] 70430- 9774 Jun, Chronic pancreatitis, unspecified pancreatitis type K86.1 ; Hirsuties L68.0 ; Morbid (severe) obesity due to excess calories E66.01 ; Chronic pancreatitis K86.1 and Asthma J45.909 [place] [address] [place] [id number] [place] [address] 79360- 4339 May, [facility] [address] 13529- 2298 May, Hyperlipidemia, mixed E78.2 and Muscle spasm of back M62.830 [facility] [address] [place] [id number] [place] [address] 08675- 1583 Apr, [facility] [address] 84416- 8121 Apr, Torticollis M43.6 [facility] [address] 45541- 7944 Apr, Right-sided thoracic back pain M54.6 [facility] [address] [place] [id number] [place] [address] 78162- 0582 Mar, Rash R21 [facility] [address] 54647- 1551 Mar, [facility] [address] [place] [id number] [place] [address] 92574- 7260 Jan, [facility] [address] [place] [id number] [place] [address] 87009- 2603 Dec, [facility] [address] [place] [id number] [place] [address] 67607- 7397 Dec, Urinary frequency 788.41 and Nocturia more than twice per night 788.43 [facility] [address] [place] [id number] [place] [address] 31689- 0456 Nov, [facility] [address] [place] [id number] [place] [address] 90501- 7781 Nov, [facility] [address] [place] [id number] [place] [address] 56485- 2800 Nov, Abdominal pain 789.00 [facility] [address] [place] [id number] [place] [address] 20088- 4935 October, TDAP DX V06.1 [facility] [id number] [address]- 9588 October, [facility] [address] [address]- 5486 October, Disturbance of skin sensation 782.0 ; Wrist pain, right 719.43 ; Hyperlipidemia 272.4 and Skin lesion of face 709.9 [facility] [address] [facility] [id number] [address]- 1584 Sep, [facility] [address] [facility] [id number] [address]- 1682 Sep, [facility] [id number] [address]- 8909 Aug, [facility] [address] [address]- 9265 Aug, [facility] [id number] [address]- 6838 Aug, [facility] [id number] [address]- 9839 Aug, [facility] [id number] [address]- 8652 Aug, [facility] [id number] [address]- 7080 Aug, [facility] [id number] [address]- 5443 Aug, [facility] [address] [facility] [id number] [address]- 4199 Aug, [facility] [id number] [address]- 2465 Aug, [facility] [id number] 5824 Aug, [facility] [address] [place] [address]- 9192 Aug, [facility] [place] [facility] [address] [id number] [place] [address]- 8878 Aug, [facility] [place] [facility] [address] [id number] [place] [address]- 1246 Aug, [facility] [place] [facility] [address] [id number] [place] [address]- 7544 Aug, [facility] [place] [facility] [address] [id number] [place] [address]- 2035 Jul, [facility] [place] [facility] [address] [id number] [place] [address]- 2402 Jul, 2014 [facility] [place] [facility] [address] [id number] [place] [address]- 5436 Jul, [facility] [place] [facility] [address] [id number] [place] [address]- 6376 Jul, [facility] [place] [facility] [address] [id number] [place] [address]- 9483 Jul, [facility] [place] [facility] [address] [id number] [place] [address]- 8633 Jul, [facility] [place] [facility] [address] [id number] [place] [address]- 3564 Jun, [facility] [place] [facility] [address] [id number] [place] [address]- 1138 Jun, [facility] [place] [facility] [address] [id number] [place] [address]- 8182 Jun, [facility] [place] [facility] [address] [id number] [place] [address]- 9066 Jun, [facility] [place] [facility] [address] [id number] [place] [address]- 2545 Jun, [facility] [place] [facility] [address] [id number] [place] [address]- 7162 Jun, [facility] [place] [facility] [address] [id number] [place] [address]- 6170 15 Jun, 2014 [facility] [place] [facility] [address] [id number] [place] [address]- 4655 15 Jun, 2014 [facility] [place] [facility] [address] [id number] [place] [address]- 9787 May, [facility] [place] [facility] [address] [id number] [place] 0511 May, [facility] [place] [facility] [address] [id number] [place] [address]- 4751 May, [facility] [place] [facility] [address] [id number] [place] [address]- 8811 May, [facility] [place] [facility] [address] [id number] [place] [address]- 1849 May, [facility] [place] [facility] [address] [id number] [place] [address]- 8457 May, [facility] [place] [facility] [address] [id number] [place] [address]- 4168 May, [facility] [place] [facility] [address] [id number] [place] [address]- 4207 May, [facility] [place] [facility] [address] [id number] [place] [address]- 4498 May, [facility] [place] [facility] [address] [id number] [address]- 5680 May, [facility] [place] [facility] [address] [id number] [place] [address]- 6635 May, [facility] [place] [facility] [address] [id number] [place] [address]- 5031 May, [facility] [place] [facility] [address] [id number] [place] [address]- 6533 Apr, [facility] [place] [facility] [address] [id number] [place] [address]- 5338 Apr, [facility] [place] [facility] [address] [id number] [place] [address]- 5648 Apr, [facility] [place] [facility] [address] [id number] [place] [address]- 2476 Apr, [facility] [place] [facility] [address] [id number] [place] [address]- 1545 Apr, [facility] [place] [facility] [address] [id number] [place] [address]- 5392 Apr, [facility] [place] [facility] [address] [id number] [place] [address]- 8635 Apr, [facility] [place] [facility] [address] [id number] [place] [address]- 1472 Apr, [facility] [place] [facility] [address] [id number] [place] [address]- 2282 Apr, [facility] [place] [facility] [address] [id number] [place] [address]- 9872 Apr, [facility] [place] [facility] [address] [id number] [place] [address]- 2077 Apr, [facility] [place] [facility] [address] [id number] [place] [address]- 1879 Apr, [facility] [place] [facility] [address] [id number] [place] [address]- 4291 Mar, [facility] [place] [facility] [address] [id number] [place] [address]- 1646 Mar, [facility] [place] [facility] [address] [id number] [place] [address]- 7512 Mar, [facility] [place] [facility] [address] [id number] [place] [address]- 7899 Mar, [facility] [place] [facility] [address] [id number] [place] [address]- 6848 Feb, [facility] [place] [facility] [address] [id number] [place] [address]- 6836 Feb, 2013 [facility] [place] [facility] [address] [id number] [place] [address]- 6803 Feb, 2013 [facility] [place] [facility] [address] [id number] [place] [address]- 6009 Feb, 2013 [facility] [place] [facility] [address] [id number] [place] [address]- 6833 Feb, 2013 [facility] [place] [facility] [address] [id number] [place] [address]- 9956 Feb, 2013 [facility] [place] [facility] [address] [id number] [place] [address]- 2814 Jan, [facility] [place] [facility] [address] [id number] [place] [address]- 2608 Jan, [facility] [place] [facility] [address] [id number] [place] [address]- 1608 Jan, [facility] [place] [facility] [address] [id number] [place] [address]- 8162 Jan, [facility] [place] [facility] [address] [id number] [place] [address]- 4191 Jan, [facility] [place] [facility] [address] [id number] [place] [address]- 1138 Jan, [facility] [place] [facility] [address] [id number] [place] [address]- 4643 Jan, [facility] [place] [facility] [address] [id number] [place] [address]- 2056 Jan, [facility] [place] [facility] [address] [id number] [place] [address]- 4607 Jan, [facility] [place] [facility] [address] [id number] [place] [address]- 4518 Jan, [facility] [place] [facility] [address] [id number] [place] [address]- 2576 Jan, [facility] [place] [facility] [address] [id number] [place] [address]- 6965 Jan, [facility] [place] [facility] [address] [id number] [place] [address]- 3988 Jan, [facility] [place] [facility] [address] [id number] [place] [address]- 4096 Jan, [facility] [place] [facility] [address] [id number] [place] [address]- 3230 Dec, [facility] [place] [facility] [address] [id number] [place] [address]- 7856 Dec, [facility] [place] [facility] [address] [id number] [place] [address]- 3351 Dec, [facility] [place] [facility] [address] [id number] [place] [address]- 0158 Dec, [facility] [place] [facility] [address] [id number] [place] [address]- 3983 Nov, [facility] [place] [facility] [address] [id number] [place] [address] Nov, [facility] [place] [facility] [address] [id number] [place] [address] Nov, [facility] [place] [facility] [address] [id number] [place] [address] Nov, [facility] [place] [facility] [address] [id number] [place] [address] Nov, [facility] [place] [facility] [address] [id number] [place] [address] October, [facility] [place] [facility] [address] [id number] [place] [address] October, [facility] [place] [facility] [address] [id number] [place] [address] October, [facility] [place] [facility] [address] [id number] [place] [address] October, [facility] [address] [id number] [place] [address] October, [facility] [address] [id number] [place] [address] October, [facility] [address] [id number] [place] [address] October, [facility] [address] [id number] [place] [address] October, [facility] [address] [id number] [place] [address]267 October, [facility] [address] [id number] [place] [address] October, [facility] [address] [id number] [place] [address] October, [facility] [address] [id number] [place] [address] October, [facility] [address] [id number] [place] [address] October, [facility] [address] [id number] [place] [address] 47[address] October, [facility] [address] [id number] [place] [address] Sep, [facility] [place] [facility] [address] [id number] [place] [address] Sep, [facility] [place] [facility] [address] [id number] [place] [address] Sep, [facility] [place] [facility] [address] [id number] [place] [address] Sep, [facility] [place] [facility] [address] [id number] [place] [address] Sep, [facility] [place] [facility] [address] [id number] [place] [address]70 Sep, [facility] [place] [facility] [address] [id number] [place] [address] Sep, [facility] [place] [facility] [address] [id number] [place] [address] Sep, [facility] [place] [facility] [address] [id number] [place] [address] Sep, [facility] [place] [facility] [address] [id number] [place] [address] Sep, [facility] [place] [facility] [address] [id number] [place] [address] Sep, [facility] [place] [facility] [address] [id number] [place] [address] Sep, [facility] [place] [facility] [address] [id number] [place] [address] Sep, [facility] [place] [facility] [address] [id number] [place] [address] Sep, [facility] [place] [facility] [address] [id number] [place] [address] Sep, [facility] [place] [facility] [address] [id number] [place] [address] Aug, [facility] [place] [facility] [address] [id number] [place] [address] Aug, [facility] [place] [facility] [address] [id number] [place] [address] Aug, [facility] [place] [facility] [address] [address] [id number] [place] [address] Aug, [facility] [place] [facility] [address] [id number] [place] [address] Jul, [facility] [place] [facility] [address] [id number] [place] [address] 0067 06 Jul, 2013 [facility] [place] [facility] [address] [id number] [place] [address] 06 Jul, 2013 [facility] [place] [facility] [address] [id number] [place] [address] 03 Jul, 2013 [facility] [place] [facility] [address] [id number] [place] [address] 1392 15 Jun, 2013 [facility] [place] [facility] [address] [id number] [place] [address]- 3986 15 Jun, 2013 [facility] [place] [facility] [address] [id number] [place] [address] 8008 Jun, [facility] [place] [facility] [address] [id number] [place] [address] 8[address] Jun, [facility] [place] [facility] [address] [id number] [place] [address]- 9654 Jun, [facility] [place] [facility] [address] [id number] [place] [address] 05[address] Jun, [facility] [place] [facility] [address] [id number] [place] [address] 0446 Jun, [facility] [place] [facility] [address] [id number] [place] [address]- 5409 Jun, [facility] [place] [facility] [address] [id number] [place] [address] 4137 May, [facility] [place] [facility] [address] [id number] [place] [address]- 9610 May, [facility] [place] [facility] [address] [id number] [place] [address]- 0866 18 May, 2013 [facility] [place] [facility] [address] [id number] [place] [address]- 5743 18 May, 2013 [facility] [place] [facility] [address] [id number] [place] [address]- 8206 17 May, 2013 [facility] [place] [facility] [address] [id number] [place] [id number] 17 May, 2013 [facility] [address] [id number] [place] [address]- 1805 17 May, 2013 [facility] [address] [id number] [place] [address]- 3735 17 May, 2013 [facility] [address] [id number] [place] [address]- 9782 16 May, 2013 [facility] [address] [id number] [place] [address]- 8829 16 May, 2013 [facility] [address] [id number] [place] [address]- 4759 14 May, 2013 [facility] [address] [id number] [place] [address]- 2943 14 May, 2013 [facility] [address] [id number] [place] [address]- 1912 13 May, 2013 [facility] [address] [id number] [place] [address]- 7181 13 May, 2013 [facility] [address] [id number] [place] [address]- 5410 12 May, 2013 [facility] [address] [id number] [place] [address]- 7257 12 May, 2013 [facility] [address] [id number] [place] [address]- 7501 11 May, 2013 [facility] [address] [id number] [place] [address] 11 May, 2013 [facility] [place] [facility] [address] [id number] [place] [address]- 4019 Apr, [facility] [address] [id number] [place] [address] Apr, [facility] [address] [id number] [place] [address]- 9816 Apr, [facility] [address] [id number] [place] [address]- 9344 Apr, [facility] [address] [id number] [place] [address]- 5605 Aug, [facility] [address] [id number] [place] [address]- 9525 Aug, [facility] [address] [id number] [place] [address]- 3462 Aug, [facility] [address] [id number] [place] [address]- 0407 Aug, [facility] [address] [id number] [place] [address]- 0739 Jul, [facility] [address] [id number] [place] [address]- 2755 Jun, [facility] [address] [id number] [place] [address]- 1676 Jun, [facility] [address] [id number] [place] [address]- 8734 Jun, [facility] [address] [id number] [place] [address]- 0517 Jun, [facility] [address] [id number] [place] [address]- 7329 May, [facility] [place] [facility] [address] [id number] [place] [address]- 8158 May, [facility] [place] [facility] [address] [id number] [place] [address]- 3932 May, [facility] [place] [facility] [address] [id number] [place] [address]- 8093 May, [facility] [place] [facility] [address] [id number] [place] [address]- 1500 May, [facility] [place] [facility] [address] [id number] [place] [address]- 9728 May, [facility] [place] [facility] [address] [id number] [place] [address]- 0455 May, [facility] [place] [facility] [address] [id number] [place] [address]- 0893 Apr, [facility] [place] [facility] [address] [id number] [place] [address]- 9803 Apr, [facility] [place] [facility] [address] [id number] [place] [address]- 9442 Apr, [facility] [place] [facility] [address] [id number] [place] [address], [place] [address] 5770 Apr, [facility] [place] [facility] [address] [id number] [place] [address]- 0549 Apr, [facility] [place] [facility] [address] [id number] [place] [address]- 4265 Apr, [facility] [place] [facility] [address] [id number] [place] [address]- 0351 Apr, [facility] [place] [facility] [address] [facility] [id number] [place] [address]- 6763 Mar, [facility] [place] [facility] [address] [facility] [id number] [place] [address]- 7803 Mar, [facility] [place] [facility] [address] [id number] [place] [address]- 5432 Mar, [facility] [place] [facility] [address] [id number] [place] [address]- 3816 Mar, [facility] [place] [facility] [address] [id number] [place] [address]- 7237 Mar, [facility] [place] [facility] [address] [facility] [id number] [place] [address]- 2664 Mar, [facility] [place] [facility] [address] [id number] [place] [address]- 5692 Mar, [facility] [place] [facility] [address] [id number] [place] [address]- 6150 Mar, [facility] [place] [facility] [address] [id number] [place] [address]- 6851 Mar, [facility] [place] [facility] [address] [id number] [place] [address]- 2020 Mar, [facility] [place] [facility] [address] [id number] [place] [address]- 1168 Mar, [facility] [place] [facility] [address] [id number] [place] 47[address] Mar, [facility] [place] [facility] [address] [id number] [place] [address]- 9533 Feb, [facility] [place] [facility] [address] [id number] [place] [address]- 4703 Jan, [facility] [place] [facility] [address] [id number] [place] [address]- 5361 Jan, [facility] [place] [facility] [address] [id number] [place] [address]- 1630 Jan, [facility] [place] [facility] [address] [id number] [place] [address]- 3859 Jan, [facility] [place] [facility] [address] [id number] [place] [address]- 6100 Jan, [facility] [place] [facility] [address] [id number] [place] [address]- 0584 Dec, [facility] [place] [facility] [address] [id number] [place] [address]- 7625 Dec, [facility] [place] [facility] [address] [id number] [place] [address]- 7146 Nov, [facility] [place] [facility] [address] [id number] [place] [address]- 9271 Nov, [facility] [place] [facility] [address] [id number] [place] [address]- 0749 Nov, [facility] [address] [id number] [place] [address]- 1938 October, [facility] [address] [id number] [place] [address]- 9859 October, [facility] [address] [id number] [place] [address]- 0828 October, [facility] [address] [id number] [place] [address]- 2667 October, [facility] [address] [id number] [place] [address]- 1638 October, [facility] [address] [id number] [place] [address]- 3580 October, [facility] [address] [id number] [place] [address]- 6636 October, [facility] [address] [id number] [place] [address]- 9525 Sep, [facility] [address] [id number] [place] [address]- 8803 Sep, [facility] [address] [id number] [place] [address]- 9157 Sep, [facility] [address] [id number] [place] [address]- 7281 Sep, [facility] [place] [facility] [address] [id number] [place] [address]- 5727 24 Sep, 2011 [facility] [place] [facility] [address] [id number] [place] [address]- 7383 19 Sep, 2011 [facility] [place] [facility] [address] [id number] [place] [address]- 7568 17 Sep, 2011 [facility] [address] [id number] [place] [address]- 0886 16 Sep, 2011 [facility] [place] [facility] [address] [id number] [place] [address]- 5499 16 Sep, 2011 [facility] [place] [facility] [address] [id number] [place] [address]- 9814 14 Sep, 2011 [facility] [place] [facility] [address] [id number] [place] [address]- 4136 13 Sep, 2011 [facility] [place] [facility] [address] [id number] [place] [address]- 9792 10 Sep, 2011 [facility] [place] [facility] [address] [id number] [place] [address]- 2909 09 Sep, 2011 [facility] [place] [facility] [address] [id number] [place] [address]- 9318 27 Aug, 2011 [facility] [place] [facility] [address] [id number] [place] [address]- 7180 12 Aug, 2011 [facility] [place] [facility] [address] [id number] [place] [address]- 8670 08 Aug, 2011 [facility] [place] [facility] [address] [id number] [place] [address]- 6054 06 Aug, 2011 [facility] [place] [facility] [address] [id number] [place] [address]- 2278 28 Jul, 2011 [facility] [place] [facility] [address] [facility] [id number] [place] [address]- 0851 22 Jul, 2011 [facility] [place] [facility] [address] [id number] [place] [address]- 0145 16 Jul, 2011 [facility] [place] [facility] [address] [id number] [place] [address]- 2069 15 Jul, 2011 [facility] [place] [facility] [address] [id number] [place] [address]- 9741 14 Jul, 2011 [facility] [place] [facility] [address] [id number] [place] [address]- 9925 10 Jul, 2011 [facility] [place] [facility] [address] [facility] [id number] [place] [address]- 4450 Jun, [facility] [address] [id number] [place] [address]- 9918 Jun, [facility] [place] [facility] [address] [id number] [place] [address]- 6303 Jun, [facility] [place] [facility] [address] [id number] [place] [address]- 2415 Jun, [facility] [place] [facility] [address] [id number] [place] [address]- 0166 Jun, [facility] [address] [id number] [place] [address]- 0110 May, [facility] [place] [facility] [address] [id number] [place] [address]- 8088 May, [facility] [address] [id number] [place] [address]- 3410 May, [facility] [place] [facility] [address] [id number] [place] [address]- 6556 May, [facility] [place] [facility] [address] [id number] [place] [address]- 7263 May, [facility] [place] [facility] [address] [id number] [place] [address]- 9772 May, [facility] [place] [facility] [address] [id number] [place] [address]- 5355 May, [facility] [place] [facility] [address] [id number] [address]- 0661 15 Apr, 2011 [facility] [place] [facility] [address] [id number] [place] [address]- 7962 Apr, [facility] [place] [facility] [address] [id number] [place] [address]- 2734 Apr, [facility] [place] [facility] [address] [id number] [place] [address]- 7328 Apr, [facility] [place] [facility] [address] [id number] [place] [address]- 5118 Apr, [facility] [place] [facility] [address] [id number] [place] [address]- 9616 Apr, [facility] [place] [facility] [address] [id number] [place] [address]- 4540 Mar, [facility] [place] [facility] [address] [id number] [place] [address]- 1000 Mar, [facility] [place] [facility] [address] [id number] [place] [address]- 8893 Mar, [facility] [place] [facility] [address] [id number] [place] [address]- 2553 Mar, [facility] [place] [facility] [address] [id number] [place] [address]- 7008 Jan, [facility] [place] [facility] [address] [id number] [place] [address]- 9189 Dec, [facility] [place] [facility] [address] [id number] [place] [address]- 7770 Dec, [facility] [place] [facility] [address] [id number] [place] [address]- 5271 October, [facility] [place] [facility] [address] [id number] [place] [address]- 0376 Sep, [facility] [place] [facility] [address] [id number] [place] [address]- 7763 14 Sep, 2010 [facility] [place] [facility] [address] [id number] [place] [address]- 1896 Jul, [facility] [place] [facility] [address] [id number] [place] [address]- 2789 16 Jul, 2010 [facility] [place] [facility] [address] [id number] [place] [address]- 2984 May, [facility] [place] [facility] [address] [id number] [place] [address]- 7572 May, [facility] [place] [facility] [address] [id number] [place] [address]- 0722 08 May, 2010 [facility] [place] [facility] [address] [id number] [place] [address]- 7656 May, [facility] [place] [facility] [address] [id number] [place] [address]- 5879 Apr, [facility] [place] [facility] [address] [id number] [place] [address]- 8357 Apr, [facility] [place] [facility] [address] [id number] [place] [address]- 6581 Apr, [facility] [place] [facility] [address] [id number] [place] [address]- 8950 Apr, [facility] [place] [facility] [address] [id number] [place] [address]- 9215 Apr, [facility] [place] [facility] [address] [id number] [place] [address]- 2486 Mar, [facility] [place] [facility] [address] [id number] [place] [address]- 8985 14 Mar, 2010 [facility] [place] [facility] [address] [id number] [address]- 2369 13 Mar, 2010 [facility] [place] [facility] [address] [id number] [place] [address]- 6623 Mar, [facility] [place] [facility] [address] [id number] [place] [address]- 6686 Jan, [facility] [place] [facility] [address] [id number] [place] [address]- 5298 15 Dec, 2009 [facility] [place] [facility] [address] [id number] [place] [address]- 2760 10 Sep, 2009 [facility] [place] [facility] [address] [id number] [place] [address]- 6709 May, [facility] [place] [facility] [id number] [address]- 2047 May, [facility] [id number] [address]- 8032 May, [facility] [id number] [address]- 9512 Apr, [facility] [id number] [place] [address] 28[address]- 8570 Apr, [facility] [id number] [place] [address] 52853- 0076 Apr, [facility] [id number] [place] [address] 078246- 0335 Apr, [facility] [id number] [place] [address] 43794- 1007 Apr, [facility] [id number] [place] [address] 500210- 5618 Mar, [facility] [id number] [address]- 6099 Mar, [facility] [id number] [place] [address] 23881- 3163 Jul, IMMUNIZATIONS No Known Immunizations SOCIAL HISTORY Never Assessed REASON FOR VISIT Continued symptoms PLAN OF CARE VITAL SIGNS MEDICATIONS Unknown [...] History Ts & As Hospitalization History Cellulitis-[facility]ia [facility] 12/20/15
[2017-11-11 09:55] LABS: BILIRUBIN,URINE NEGATIVE (NEGATIVE); CLARITY,URINE SLIGHTLY CLOUDY; COLOR,URINE YELLOW; GLUCOSE, URINE (UA) NEGATIVE (NEGATIVE); KETONES,URINE NEGATIVE (NEGATIVE); LEUKOCYTE ESTERASE ,URINE NEGATIVE (NEGATIVE); NITRITE,URINE NEGATIVE (NEGATIVE); PH,URINE 6 (5-9); PROTEIN,URINE 1+ (NEGATIVE); UROBILINOGEN,URINE NORMAL (NORMAL)
[2017-11-11] MEDS ORDERED: ONDANSETRON 4 MG/2 ML (SDV) Z0FRAN IVP ONE (10:00)
[2017-11-11] MEDS ORDERED: fentaNYL INJECTION 100 MCG/2 ML AMP IVP ONE ×2 (10:00→11:45)
[2017-11-11 10:06] LABS: BACTERIA,URINE LARGE /HPF; SQUAMOUS EPITHELIAL CELL,UR >50 /HPF; WBC,URINE 0-2 /HPF
--- NOTE | 2017-11-11 10:06 | ED Abdominal Pain ---
General Chief Complaint: Abdominal/GI Problems Stated Complaint: L SIDE PAIN,NAUSEA Nursing Triage Note: Pt c/o LUQ abd pain and nausea since yesterday. Pt also reports abd feels "swollen" and states she feels like she has a "knot" in her throat. 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 She had a left nephrectomy secondary to stage III kidney cancer in remission now. She has been using Tylenol, hydrocodone but the pain is not improved with this. She is also using stool softeners and MiraLAX as needed to keep her bowels moving regularly. She had a bowel movement yesterday that was normal, formed. She is also having some nausea but no vomiting. She has no painful urination or burning. No discharge. She's not had any recent trauma. She has no shortness of breath or cough. She had a colonoscopy before with no mention of diverticulosis. Old records demonstrate that she was given a mesh repair of her hernia on the left abdominal wall and so is currently developed either a seroma or abscess around it which was drained percutaneously and she was put on 5 days of antibiotics. Allergies and Home Medications Allergies Coded Allergies: meperidine (Verified Allergy, Unknown, 08/20/17) penicillin G (Verified Allergy, Unknown, 08/20/17) Home Medications Acetaminophen 500 Mg Tablet, 500-1,000 MG PO Q6H PRN for PAIN-MODERATE, ( Reported) Bisacodyl 5 Mg Tablet, 5-10 MG PO DAILY PRN for CONSTIPATION-4TH LINE, (Reported ) Cyanocobalamin 1,000 Mcg/Ml Inj, 1,000 MCG IJ MONTHLY, (Reported) Cyclobenzaprine HCl 10 Mg Tablet, 10 MG PO Q8H PRN for SPASMS Prescribed by: YUKI MARCH on 10/22/17 5367 Diphenhydramine HCl 25 Mg Capsule, 25 MG PO Q6H PRN for ALLERGIES, (Reported) Estradiol 2 Mg Tablet, 2 MG PO HS, (Reported) Fluoxetine HCl 40 Mg Capsule, 40 MG PO HS, (Reported) Hydrocodone/Acetaminophen 1 Each Tablet, 1-2 TAB PO Q4H PRN for PAIN-MODERATE, ( Reported) Ondansetron 8 Mg Tab.rapdis, 8 MG PO BID, (Reported) Polyethylene Glycol 3350 255 Gm Powder, 17 GM PO BID PRN for CONSTIPATION-2ND LINE, (Reported) Prednisone 20 Mg Tab, 40 MG PO DAILY Prescribed by: YUKI MARCH on 10/22/17 1552 Ropinirole HCl 4 Mg Tablet, 4 MG PO HS, (Reported) Sulfamethoxazole/Trimethoprim 1 Each Tablet, 1 TAB PO BID, (Reported) 10 DAY THERAPY FILLED 08-31-17 Patient Home Medication List Home Medication List Reviewed: Yes Review of Systems Constitutional: No chills, No diaphoresis EENTM: No Blurred Vision, No Double Vision Respiratory: Denies Cough, Denies Shortness of Air Cardiovascular: Denies Chest Pain, Denies Edema Gastrointestinal: Denies Abdomen Distended; Abdominal Pain; Denies Constipated , Denies Diarrhea, Denies Nausea Genitourinary: Denies Burning, Denies Discharge, Denies Drainage Musculoskeletal: No back pain, No joint pain Skin: No pruritus, No rash Past Sbnfavp-Alrjog-Kkznhv Hx Patient Social History Alcohol Use: Denies Use Recreational Drug Use: No Smoking Status: Former Smoker Type Used: Cigarettes 2nd Hand Smoke Exposure: No Recent Foreign Travel: No Contact w/Someone Who Travel: No Recent Infectious Disease Expo: No Recent Hopitalizations: No Immunizations Up To Date Tetanus Booster (TDap): Unknown PED Vaccines UTD: No Date of Pneumonia Vaccine: May 17, 2012 Date of Influenza Vaccine: Jul 03, 2012 Seasonal Allergies Seasonal Allergies: Yes (MILD) Past Medical History Surgeries: Yes Abdominal, Adenoidectomy, Appendectomy, Gallbladder, 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, Nephrectomy, Orthopedic, Tonsillectomy Respiratory: Yes (HASNT USED INHALER IN > 4 YRS) Asthma Currently Using CPAP: No Currently Using BIPAP: No Cardiac: No Neurological: Yes (RESTLESS LEG SYNDROME) Headaches /Migraines 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: No 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 [employer]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[employer] History: 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 Sexually Transmitted Disease: No HIV/AIDS: No Genitourinary: Yes (L KIDNEY REMOVED FOR TUMOR;) UTI-Chronic Gastrointestinal: Yes (ENLARGED LIVER/FATTY LIVER) Liver Disease/Jaundice, Chronic Constipation, Pancreatitis, Polyps Musculoskeletal: Yes (COCCYX-REPAIRED, MAY HAVE SIGNS OF ARTHRITIS) Chronic Back Pain Endocrine: Yes (CHRONIC PANCREATITIS) HEENT: No Loss of Vision: Denies Hearing Impairment: Denies Cancer: Yes Kidney Did You Recieve Any Treatments: Yes What Type of Treatment Did You: Surgical Intervention Psychosocial: Yes Anxiety, Depression Integumentary: No Herpes Blood Disorders: No Adverse Reaction/Blood Tranf: No (N/A) Family Medical History Cardiovascular disease 19 FATHER Completed stroke 19 FATHER Diabetes mellitus 19 FATHER Hypercholesterolemia 19 FATHER 19 MOTHER Hypertension 19 FATHER 19 MOTHER Neoplasm 19 MOTHER Psychosocial problem 19 FATHER 19 MOTHER Cancer, Diabetes, Hypertension Physical Exam Vital Signs Vital Signs - First Documented 11/11/17 09:25 Temp 96.9 Pulse 89 Resp 18 B/P (MAP) 141/82 (101) Pulse Ox 97 O2 Delivery Room Air Capillary Refill : Less Than 3 Seconds General Appearance: WD/WN, no apparent distress HEENT: PERRL/EOMI, pharynx normal Neck: non-tender, normal inspection Respiratory: chest non-tender, no respiratory distress, no accessory muscle use Cardiovascular: normal peripheral pulses, regular rate, rhythm Peripheral Pulses: 2+ Radial Pulses (R), 2+ Radial Pulses (L) Gastrointestinal: normal bowel sounds, soft, tenderness (over the previous surgical site from the hernia repair.) Progress/Results/Core Measures Results/Orders Lab Results Laboratory Tests Test 11/11/17 09:50 11/11/17 10:10 Range/Units Urine Color YELLOW Urine Clarity SLIGHTLY CLOUDY Urine pH 6 5-9 Urine Specific Clark 1.015 L 1.016-1.022 Urine Protein 1+ H NEGATIVE Urine Glucose (UA) NEGATIVE NEGATIVE Urine Ketones NEGATIVE NEGATIVE Urine Nitrite NEGATIVE NEGATIVE Urine Bilirubin NEGATIVE NEGATIVE Urine Urobilinogen NORMAL NORMAL MG/DL Urine Leukocyte Esterase NEGATIVE NEGATIVE Urine RBC (Auto) NEGATIVE NEGATIVE Urine RBC NONE /HPF Urine WBC 0-2 /HPF Urine Squamous Epithelial Cells >50 H /HPF Urine Crystals NONE /LPF Urine Bacteria LARGE H /HPF Urine Casts NONE /LPF Urine Mucus NEGATIVE /LPF Urine Culture Indicated NO Urine Test NEGATIVE NEGATIVE White Blood Count 9.8 4.3-11.0 10^3/uL Red Blood Count 4.35 4.35-5.85 10^6/uL Hemoglobin 12.2 11.5-16.0 G/DL Hematocrit 37 35-52 % Mean Corpuscular Volume 86 80-99 FL Mean Corpuscular Hemoglobin 28 25-34 PG Mean Corpuscular Hemoglobin Concent 33 32-36 G/DL Red Cell Distribution Width 14.0 10.0-14.5 % Platelet Count 273 130-400 10^3/uL Mean Platelet Volume 9.2 7.4-10.4 FL Neutrophils (%) (Auto) 65 42-75 % Lymphocytes (%) (Auto) 27 12-44 % Monocytes (%) (Auto) 5 0-12 % Eosinophils (%) (Auto) 3 0-10 % Basophils (%) (Auto) 0 0-10 % Neutrophils # (Auto) 6.3 1.8-7.8 X 10^3 Lymphocytes # (Auto) 2.7 1.0-4.0 X 10^3 Monocytes # (Auto) 0.5 0.0-1.0 X 10^3 Eosinophils # (Auto) 0.3 0.0-0.3 10^3/uL Basophils # (Auto) 0.0 0.0-0.1 10^3/uL Sodium Level 140 135-145 MMOL/L Potassium Level 3.9 3.6-5.0 MMOL/L Chloride Level 107 98-107 MMOL/L Carbon Dioxide Level 22 21-32 MMOL/L Anion Gap 11 5-14 MMOL/L Blood Urea Nitrogen 12 7-18 MG/DL Creatinine 0.84 0.60-1.30 MG/DL Estimat Glomerular Filtration Rate > 60 BUN/Creatinine Ratio 14 Glucose Level 88 70-105 MG/DL Calcium Level 9.0 8.5-10.1 MG/DL Magnesium Level 2.2 1.8-2.4 MG/DL Total Bilirubin 0.4 0.1-1.0 MG/DL Aspartate Amino Transf (AST/SGOT) 30 5-34 U/L Alanine Aminotransferase (ALT/SGPT) 20 0-55 U/L Alkaline Phosphatase 52 40-136 U/L Total Protein 7.0 6.4-8.2 GM/DL Albumin 3.7 3.2-4.5 GM/DL My Orders Orders - MAKAYLA HAWKINS Ua Culture If Indicated (11/11/17 09:32) Cbc With Automated Diff (11/11/17 09:59) Comprehensive Metabolic Panel (11/11/17 09:59) Hcg,Qualitative Urine (11/11/17 09:59) Magnesium (11/11/17 09:59) Ondansetron Injection (Zofran Injectio (11/11/17 10:00) Fentanyl Injection (Sublimaze Injection (11/11/17 10:00) Saline Lock/Iv-Start (11/11/17 10:07) Ns Iv 1000 Ml (Sodium Chloride 0.9%) (11/11/17 10:07) Iohexol Injection (Omnipaque 350 Mg/Ml 1 (11/11/17 10:15) Ns (Ivpb) (Sodium Chloride 0.9%) (11/11/17 10:15) Ct Abdomen/Pelvis Wo (11/11/17 10:26) Fentanyl Injection (Sublimaze Injection (11/11/17 11:45) Medications Given in ED Current Medications Medications Dose Ordered Sig/Neal Route Start Time Stop Time Status Last Admin Dose Admin Fentanyl Citrate 50 mcg ONCE ONCE IVP 11/11/17 10:00 11/11/17 10:01 DC 11/11/17 10:13 50 MCG Fentanyl Citrate 50 mcg ONCE ONCE IVP 11/11/17 11:45 11/11/17 11:46 DC 11/11/17 11:45 50 MCG Ondansetron HCl 4 mg ONCE ONCE IVP 11/11/17 10:00 11/11/17 10:01 DC 11/11/17 10:12 4 MG Vital Signs/I&O 11/11/17 09:25 Temp 96.9 Pulse 89 Resp 18 B/P (MAP) 141/82 (101) Pulse Ox 97 O2 Delivery Room Air Blood Pressure Mean: 101 Progress Progress Note : Time: 10:06 Progress Note Loose no palpable seroma or fluid collection there she is having quite a bit of tenderness around her recent incisional hernia repair site so we will repeat an x-ray to make sure there is no abscess or other recurrence of hernia. Because of her body habitus she could be hiding an abscess. There is no palpable defect. Diagnostic Imaging Diagonstic Imaging: CT Plain Films/CT/US/NM/MRI: abdomen, pelvis Comments NAME: JAYLYN DELGADO [facility] REC#: [id number] PHYSICIAN: MAKAYLA HAWKINS MD CC: TAHMINA HORTON MD; MAKAYLA HAWKINS Page 2 of 2 RADIOLOGY REPORT VIA [facility], [facility]. [place], [place] CC: TAHMINA HORTON MD; MAKAYLA HAWKINS Page 1 of 2 RADIOLOGY REPORT NAME: JAYLYN DELGADO [facility] REC#: [id number] PT STATUS: REG ER : 1985 PHYSICIAN: MAKAYLA HAWKINS MD ADMIT DATE: 11/11/17/ER Signed Date of Exam: 11/11/17 CT ABDOMEN/PELVIS WO PROCEDURE: CT abdomen and pelvis without contrast. TECHNIQUE: Multiple contiguous axial images were obtained through the abdomen and pelvis without the use of intravenous contrast. DATE: November 11, 2017. COMPARISON: Ultrasound 10/01/2017. CT abdomen and pelvis 09/02/2017. INDICATION: 32-year-old female, left-sided abdominal pain. FINDINGS: There are limitations for evaluation of the abdominal organs, neoplastic processes, abscess, and limited evaluation of the vasculature relating to the lack of intravenous contrast. There is a 4 mm noncalcified left lower lobe pulmonary nodule. This is not seen on comparison exam. This potentially could reflect focal atelectasis versus new true pulmonary nodule. The heart is not enlarged. There is no pericardial effusion. The liver is normal in size and contour. There is mild diffuse fatty infiltration of the liver. The patient is status post cholecystectomy. There is no intrahepatic or extrahepatic bile duct dilation. The main pancreatic duct is not abnormally dilated. Unremarkable noncontrast appearance of the pancreatic parenchyma. There are accessory splenules. The spleen is not enlarged. The adrenal glands are unremarkable. The right kidney is unremarkable in appearance. The left kidney is not seen and may be surgically absent. There is no identified renal or ureteral stone. There is no hydronephrosis. There is distortion of the urinary bladder contour relating to adjacent fat and lipomatosis. The urinary bladder is otherwise unremarkable in appearance. The uterus is not seen and may be surgically absent. The intestinal tract is not distended. There are right lower quadrant surgical clips which may relate to appendectomy. There are no findings to suggest acute appendicitis. The appendix is not able to be identified. There is no free intraperitoneal air. There is a low-attenuation mass in the left lateral abdominal wall with adjacent stranding measuring 7.7 x 3.4 cm in axial dimension on axial image 62. There is no free pelvic fluid. There is previous probable fluid collection measuring 16 x 5.3 cm in size on 09/02/2017. There is a left external iliac chain lymph node measuring 9 mm in short axis on axial image 77. This is unchanged since comparison exam. IMPRESSION: CT ABDOMEN AND PELVIS. 1. Nonspecific fluid collection in the left lateral abdominal wall subcutaneous tissues measuring smaller in size since comparison exam of 09/02/2017 currently a 7.7 x 3.4 cm in size compared to 16 x 5.3 cm in size previously. 2. Left lateral abdominal wall hernia defect without hernia. 3. Mild diffuse fatty infiltration of the liver. 4. 4 mm potential left lower lobe pulmonary nodule versus focal atelectasis. Dictated by: Dictated on workstation # [id number] Dict: 11/11/17 1043 Trans: 11/11/17 1057 Interpreted by: TAHMINA HORTON MD Electronically signed by: TAHMINA HORTON MD 11/11/17 1057 Reviewed: Reviewed by Me Consults : Consulting Physician: LINDSEY MARROQUIN DO Consults Notes He will come down and see the pt. After visiting with the patient Dr. Marroquin is going to get her set up for an outpatient percutaneous drain placed by interventional radiology tomorrow morning. The patient is happy with this plan and ready to go home. Departure Impression Primary Impression: Abdominal wall fluid collections Disposition: 01 HOME, SELF-CARE Condition: Stable Departure-Patient Inst. Decision time for Depature: 12:12 Referrals: CARMEN GIBBS MD (PCP/Family) Primary Care Physician Patient Instructions: Acute Abdomen (Belly Pain), Adult (DC) Add. Discharge Instructions: Keep in touch with the plans that Dr. Marroquin has laid out for you to get a drain placed tomorrow outpatient. All discharge instructions reviewed with patient and/or family. Voiced understanding. Copy Copies To 1: EMIL ROLON DO; YUNIOR LYLES MD, TITUS J November 11, 2017 10:06
[2017-11-11] MEDS ORDERED: NS IV 1000 ML 1,000 ML IV SCH (10:07)
[2017-11-11] MEDS ORDERED: NS 250 ML (IVPB) BAG IV ONE (10:15)
[2017-11-11] MEDS ORDERED: IOHEXOL 350 MG/ML 100 ML (OMNIPAQUE 350) VIAL IV ONE (10:15)
[2017-11-11 10:20] LABS: BASOPHILS % (AUTO) 0 % (0-10); EOSINOPHILS # (AUTO) 0.3 10^3/uL (0.0-0.3); EOSINOPHILS % (AUTO) 3 % (0-10); HEMATOCRIT 37 % (35-52); HEMOGLOBIN 12.2 G/DL (11.5-16.0); LYMPHOCYTES # (AUTO) 2.7 X 10^3 (1.0-4.0); LYMPHOCYTES % (AUTO) 27 % (12-44); MEAN CORPUSCULAR HEMOGLOBIN 28 PG (25-34); MEAN CORPUSCULAR HGB CONC 33 G/DL (32-36); MEAN CORPUSCULAR VOLUME 86 FL (80-99); MEAN PLATELET VOLUME 9.2 FL (7.4-10.4); MONOCYTES # (AUTO) 0.5 X 10^3 (0.0-1.0); MONOCYTES % (AUTO) 5 % (0-12); NEUTROPHILS # (AUTO) 6.3 X 10^3 (1.8-7.8); NEUTROPHILS % (AUTO) 65 % (42-75); PLATELET COUNT 273 10^3/uL (130-400); RED BLOOD COUNT 4.35 10^6/uL (4.35-5.85); WHITE BLOOD COUNT 9.8 10^3/uL (4.3-11.0)
[2017-11-11 10:38] LABS: ALANINE AMINOTRANSFERASE 20 U/L (0-55); ALBUMIN 3.7 GM/DL (3.2-4.5); ALKALINE PHOSPHATASE 52 U/L (40-136); BILIRUBIN,TOTAL 0.4 MG/DL (0.1-1.0); BUN/CREATININE RATIO 14; CARBON DIOXIDE 22 MMOL/L (21-32); CHLORIDE 107 MMOL/L (98-107); CREATININE SERUM 0.84 MG/DL (0.60-1.30); GFR ESTIMATED > 60; GLUCOSE 88 MG/DL (70-105); MAGNESIUM 2.2 MG/DL (1.8-2.4); POTASSIUM 3.9 MMOL/L (3.6-5.0); SODIUM 140 MMOL/L (135-145)
--- NOTE | 2017-11-11 10:55 | Diagnostic Imaging Report ---
PROCEDURE: CT abdomen and pelvis without contrast. TECHNIQUE: Multiple contiguous axial images were obtained through the abdomen and pelvis without the use of intravenous contrast. DATE: November 11, 2017. COMPARISON: Ultrasound 10/01/2017. CT abdomen and pelvis 09/02/2017. INDICATION: 32-year-old female, left-sided abdominal pain. FINDINGS: There are limitations for evaluation of the abdominal organs, neoplastic processes, abscess, and limited evaluation of the vasculature relating to the lack of intravenous contrast. There is a 4 mm noncalcified left lower lobe pulmonary nodule. This is not seen on comparison exam. This potentially could reflect focal atelectasis versus new true pulmonary nodule. The heart is not enlarged. There is no pericardial effusion. The liver is normal in size and contour. There is mild diffuse fatty infiltration of the liver. The patient is status post cholecystectomy. There is no intrahepatic or extrahepatic bile duct dilation. The main pancreatic duct is not abnormally dilated. Unremarkable noncontrast appearance of the pancreatic parenchyma. There are accessory splenules. The spleen is not enlarged. The adrenal glands are unremarkable. The right kidney is unremarkable in appearance. The left kidney is not seen and may be surgically absent. There is no identified renal or ureteral stone. There is no hydronephrosis. There is distortion of the urinary bladder contour relating to adjacent fat and lipomatosis. The urinary bladder is otherwise unremarkable in appearance. The uterus is not seen and may be surgically absent. The intestinal tract is not distended. There are right lower quadrant surgical clips which may relate to appendectomy. There are no findings to suggest acute appendicitis. The appendix is not able to be identified. There is no free intraperitoneal air. There is a low-attenuation mass in the left lateral abdominal wall with adjacent stranding measuring 7.7 x 3.4 cm in axial dimension on axial image 62. There is no free pelvic fluid. There is previous probable fluid collection measuring 16 x 5.3 cm in size on 09/02/2017. There is a left external iliac chain lymph node measuring 9 mm in short axis on axial image 77. This is unchanged since comparison exam. IMPRESSION: CT ABDOMEN AND PELVIS. 1. Nonspecific fluid collection in the left lateral abdominal wall subcutaneous tissues measuring smaller in size since comparison exam of 09/02/2017 currently a 7.7 x 3.4 cm in size compared to 16 x 5.3 cm in size previously. 2. Left lateral abdominal wall hernia defect without hernia. 3. Mild diffuse fatty infiltration of the liver. 4. 4 mm potential left lower lobe pulmonary nodule versus focal atelectasis. Dictated by: Dictated on workstation # [id number]
[2017-11-11 12:23] VITALS: BP 141/82
--- NOTE | 2017-11-11 14:52 | Consultation ---
History of Present Illness History of Present Illness Patient Consulted On(tamiko/time) 11/11/17 14:46 Time Seen by Provider: 11:54 History of Present Illness Surgery asked to consult regarding left side/flank pain; subcutaneous fluid collection. HPI per ED: The patient presents to the ER by private conveyance with a chief complaint that she is having about one days progressively worsening left abdominal pain near the site of her surgery about 2 months ago where she had a spigelian hernia repair of her left abdominal wall. She had a left nephrectomy secondary to stage III kidney cancer in remission now. She has been using Tylenol, hydrocodone but the pain is not improved with this. She is also using stool softeners and MiraLAX as needed to keep her bowels moving regularly. She had a bowel movement yesterday that was normal, formed. She is also having some nausea but no vomiting. She has no painful urination or burning. No discharge. She's not had any recent trauma. She has no shortness of breath or cough. She had a colonoscopy before with no mention of diverticulosis. Old records demonstrate that she was given a mesh repair of her hernia on the left abdominal wall and so is currently developed either a seroma or abscess around it which was drained percutaneously and she was put on 5 days of antibiotics. When I saw pt in the ER she was complaining of minor pain; 5 out of 10 on a 1- 10 scale. Radiating up and down her left side, especially up towards her ribs. She states this is right at the spot where she had Nephrectomy, then hernia repair and most recently had needle drainage by Dr. Daniel. Allergies and Home Medications Allergies Coded Allergies: meperidine (Verified Allergy, Unknown, 08/20/17) penicillin G (Verified Allergy, Unknown, 08/20/17) Home Medications Acetaminophen 500 Mg Tablet, 500-1,000 MG PO Q6H PRN for PAIN-MODERATE, ( Reported) Bisacodyl 5 Mg Tablet, 5-10 MG PO DAILY PRN for CONSTIPATION-4TH LINE, (Reported ) Cyanocobalamin 1,000 Mcg/Ml Inj, 1,000 MCG IJ MONTHLY, (Reported) Cyclobenzaprine HCl 10 Mg Tablet, 10 MG PO Q8H PRN for SPASMS Prescribed by: YUKI MARCH on 10/22/17 9814 Diphenhydramine HCl 25 Mg Capsule, 25 MG PO Q6H PRN for ALLERGIES, (Reported) Estradiol 2 Mg Tablet, 2 MG PO HS, (Reported) Fluoxetine HCl 40 Mg Capsule, 40 MG PO HS, (Reported) Hydrocodone/Acetaminophen 1 Each Tablet, 1-2 TAB PO Q4H PRN for PAIN-MODERATE, ( Reported) Ondansetron 8 Mg Tab.rapdis, 8 MG PO BID, (Reported) Polyethylene Glycol 3350 255 Gm Powder, 17 GM PO BID PRN for CONSTIPATION-2ND LINE, (Reported) Prednisone 20 Mg Tab, 40 MG PO DAILY Prescribed by: YUKI MARCH on 10/22/17 2162 Ropinirole HCl 4 Mg Tablet, 4 MG PO HS, (Reported) Sulfamethoxazole/Trimethoprim 1 Each Tablet, 1 TAB PO BID, (Reported) 10 DAY THERAPY FILLED 08-31-17 Patient Home Medication List Home Medication List Reviewed: Yes Past Hycbqra-Yfzjkt-Yaaluj Hx Patient Social History Alcohol Use: Denies Use Recreational Drug Use: No Smoking Status: Former Smoker Type Used: Cigarettes 2nd Hand Smoke Exposure: No Recent Foreign Travel: No Contact w/Someone Who Travel: No Recent Infectious Disease Expo: No Recent Hopitalizations: No Immunizations Up To Date Tetanus Booster (TDap): Unknown PED Vaccines UTD: No Date of Pneumonia Vaccine: May 17, 2012 Date of Influenza Vaccine: Jul 03, 2012 Seasonal Allergies Seasonal Allergies: Yes (MILD) Surgeries History of Surgeries: Yes Surgeries: Abdominal, Adenoidectomy, Appendectomy, Gallbladder, 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, Nephrectomy, Orthopedic, Tonsillectomy Respiratory History of Respiratory Disorde: Yes (HASNT USED INHALER IN > 4 YRS) Respiratory Disorders: Asthma Cardiovascular History of Cardiac Disorders: No Neurological History of Neurological Disord: Yes (RESTLESS LEG SYNDROME) Neurological Disorders: Headaches /Migraines 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 System Hx 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: No Sexually Transmitted Disease: No HIV/AIDS: No 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 Genitourinary History of Genitourinary Disor: Yes (L KIDNEY REMOVED FOR TUMOR;) Genitourinary Disorders: UTI-Chronic Gastrointestinal History of Gastrointestinal Di: Yes (ENLARGED LIVER/FATTY LIVER) Gastrointestinal Disorders: Liver Disease/Jaundice, Chronic Constipation, Pancreatitis, Polyps Musculoskeletal History of Musculoskeletal Dis: Yes (COCCYX-REPAIRED, MAY HAVE SIGNS OF ARTHRITIS) Musculoskeletal Disorders: Chronic Back Pain Endocrine History of Endocrine Disorders: Yes (CHRONIC PANCREATITIS) HEENT History of HEENT Disorders: No Loss of Vision: Denies Hearing Impairment: Denies Cancer History of Cancer: Yes Cancer: Kidney Psychosocial History of Psychiatric Problem: Yes Behavioral Health Disorders: Anxiety, Depression Integumentary History of Skin or Integumenta: No Skin/Integumentary Disorders: Herpes Blood Transfusions History of Blood Disorders: No Adverse Reaction to a Blood Tr: No (N/A) Family Medical History Significant Family History: Cancer, Diabetes, Hypertension Family Medial History: Cardiovascular disease 19 FATHER Completed stroke 19 FATHER Diabetes mellitus 19 FATHER Hypercholesterolemia 19 FATHER 19 MOTHER Hypertension 19 FATHER 19 MOTHER Neoplasm 19 MOTHER Psychosocial problem 19 FATHER 19 MOTHER Review of Systems-General Constitutional: No chills, No diaphoresis; weakness EENTM: No blurred vision, No double vision, No mouth pain, No mouth swelling, No epistaxis, No throat pain, No throat swelling Respiratory: No cough, No dyspnea on exertion Cardiovascular: No chest pain, No palpitations Gastrointestinal: abdominal pain; No jaundice, No melena; nausea; No vomiting Genitourinary: No dysuria, No frequency, No hematuria Musculoskeletal: back pain, joint pain, joint swelling, muscle stiffness Psychiatric/Neurological: Anxiety, Depressed, Headache Physical Exam-General Problems Physical Exam Vital Signs Vital Signs - First Documented 11/11/17 09:25 Temp 96.9 Pulse 89 Resp 18 B/P (MAP) 141/82 (101) Pulse Ox 97 O2 Delivery Room Air Capillary Refill : Less Than 3 Seconds General Appearance: WD/WN, mild distress (secondary to pain), obese (morbidly) Eyes: Bilateral Eye PERRL, Bilateral Eye EOMI HEENT: pharynx normal; No scleral icterus (R), No scleral icterus (L), No pale conjunctivae (R), No pale conjunctivae (L) Neck: non-tender, full range of motion, supple, normal inspection Respiratory: chest non-tender, lungs clear, normal breath sounds, no respiratory distress, no accessory muscle use Cardiovascular: regular rate, rhythm, no edema, no murmur Gastrointestinal: normal bowel sounds, soft, no organomegaly, tenderness (left lower quadrant, ?fluid wave, soft under previous incision) Back: no CVA tenderness, no vertebral tenderness Extremities: normal range of motion, non-tender, normal inspection, no pedal edema, no calf tenderness, normal capillary refill 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 nml as tested, no motor/sensory deficits, alert, normal mood/affect, oriented x 3 Skin: normal color, warm/dry, other (no erythem or signs of infection at incision site) Lymphatic: no adenopathy (neck, axilla or groin) Data Review Labs Laboratory Tests 11/11/17 09:50: Urine Color YELLOW, Urine Clarity SLIGHTLY CLOUDY, Urine pH 6, Urine Specific [place] 1.015L, Urine Protein 1+H, Urine Glucose (UA) NEGATIVE, Urine Ketones NEGATIVE, Urine Nitrite NEGATIVE, Urine Bilirubin NEGATIVE, Urine Urobilinogen NORMAL, Urine Leukocyte Esterase NEGATIVE, Urine RBC (Auto) NEGATIVE, Urine RBC NONE, Urine WBC 0-2, Urine Squamous Epithelial Cells >50H, Urine Crystals NONE, Urine Bacteria LARGEH, Urine Casts NONE, Urine Mucus NEGATIVE, Urine Culture Indicated NO, Urine Test NEGATIVE 11/11/17 10:10: White Blood Count 9.8, Red Blood Count 4.35, Hemoglobin 12.2, Hematocrit 37, Mean Corpuscular Volume 86, Mean Corpuscular Hemoglobin 28, Mean Corpuscular Hemoglobin Concent 33, Red Cell Distribution Width 14.0, Platelet Count 273, Mean Platelet Volume 9.2, Neutrophils (%) (Auto) 65, Lymphocytes (%) (Auto) 27, Monocytes (%) (Auto) 5, Eosinophils (%) (Auto) 3, Basophils (%) (Auto) 0, Neutrophils # (Auto) 6.3, Lymphocytes # (Auto) 2.7, Monocytes # (Auto) 0.5, Eosinophils # (Auto) 0.3, Basophils # (Auto) 0.0, Sodium Level 140, Potassium Level 3.9, Chloride Level 107, Carbon Dioxide Level 22, Anion Gap 11, Blood Urea Nitrogen 12, Creatinine 0.84, Estimat Glomerular Filtration Rate > 60, BUN/ Creatinine Ratio 14, Glucose Level 88, Calcium Level 9.0, Magnesium Level 2.2, Total Bilirubin 0.4, Aspartate Amino Transf (AST/SGOT) 30, Alanine Aminotransferase (ALT/SGPT) 20, Alkaline Phosphatase 52, Total Protein 7.0, Albumin 3.7 Assessment/Plan Assessment/Plan Assessment/Plan LLQ Abdominal pain Left abdominal wall fluid collection Asthma I discussed with pt her three options: 1) Needle drainage with US guidance in the ER, may not reduce her pain, is only a temporary treatment and runs the risk of introducing bacteria into the area (if it isn't already an abscess) 2) percutaneous drain placement (pig tail); probably the best option, but has to be done by radiology and then can be flushed to wash out cavity 3) open surgical incision and drainage with probable debridement (pt will most likely eventually have to have this done, I believe the peel will eventually need to be completely removed in order for the area to completely heal). Pt wanted to try option #2 and has pain medications at home to deal with her pain. I will have my office call radiology tomorrow to get this set up and call the pt. All questions answered to her satisfaction. LINDSEY MARROQUIN DO November 11, 2017 14:52
== END 2017-11-11 12:22 | disposition home or self-care (01) ==
LOC: EDUNIT# 09:15 → ER 09:16
DX: R18.8 Other ascites (principal); J45.909 Unspecified asthma, uncomplicated; F41.9 Anxiety disorder, unspecified; F32.9 Major depressive disorder, single episode, unspecified; G43.909 Migraine, unspecified, not intractable, without status migrainosus; G25.81 Restless legs syndrome; Z86.010 Personal history of colon polyps; Z87.440 Personal history of urinary (tract) infections; Z86.19 Personal history of other infectious and parasitic diseases; Z82.49 Family history of ischemic heart disease and other diseases of the circulatory system; Z79.51 Long term (current) use of inhaled steroids; Z88.0 Allergy status to penicillin; Z88.8 Allergy status to other drugs, medicaments and biological substances; Z90.5 Acquired absence of kidney; Z87.19 Personal history of other diseases of the digestive system; Z79.52 Long term (current) use of systemic steroids; Z87.891 Personal history of nicotine dependence; Z90.710 Acquired absence of both cervix and uterus; Z90.89 Acquired absence of other organs
CPT/HCPCS: 36415; 74176; 80053; 81000; 83735; 84703; 85025; 96361; 96374; 96375; 96376

== ENCOUNTER 2017-11-12 12:17 | Outpatient (CLI) | payer MEDICARE, MEDICAID ==
[2017-11-12] VITALS (7 sets, daily range): BP systolic 117–132; BP diastolic 57–72
[~2017-11-12] VITALS: Ht 157.5 cm; Wt 108.9 kg
[2017-11-12] MEDS ORDERED: NS IV 1000 ML 1,000 ML IV STA (12:22)
[2017-11-12] MEDS ORDERED: LIDOCAINE 1% INJ 20 ML 20 ML VIAL ONE (12:25)
[2017-11-12] MEDS ORDERED: MIDAZOLAM 2 MG/2 ML (VERSED) VIAL IVP PRN (12:30)
[2017-11-12] MEDS ORDERED: fentaNYL INJECTION 100 MCG/2 ML AMP IVP PRN (12:30)
[2017-11-12] MEDS ORDERED: LIDOCAINE 1% INJ 50 ML (XYLOCAINE) VIAL IJ ONE (12:30)
[2017-11-12] MEDS ORDERED: CATHETER FLUSH 10 ML SYR IV ONE (13:30)
--- NOTE | 2017-11-12 14:08 | Pre-Procedure Progress Note ---
Pre-Procedure Progress Note H&P Reviewed The H&P was reviewed, patient examined and no changes noted. Date H&P Reviewed: November 12, 2017 Time H&P Reviewed: 12:00 Pre-Procedure Diagnosis: abdominal wall fluid collection RAZA GOLD MD November 12, 2017 14:08
[2017-11-12] MEDS ORDERED: HYDROcodone/APAP 7.5 MG/325 MG (LORTAB, LORCET PLUS) TABLET PO ONE ×2 (14:25→14:30)
--- NOTE | 2017-11-12 15:33 | Diagnostic Imaging Report ---
INDICATION: Left abdominal subcutaneous fluid collection. Patient presents for CT-guided drainage. FINDINGS: Patient was brought to the CT suite, placed on table in the supine position. Axial imaging through the abdomen was performed to evaluate appropriate entry site. Skin of the left abdomen was then prepped and draped in the usual sterile fashion. Small amount of 1% lidocaine was utilized for local anesthesia. The fluid collection noted in the subcutaneous tissues of the left lower quadrant was punctured with a Yueh catheter. .03 wire was advanced through the Yueh and Yueh was exchanged for a 6.5 Serbian Resolve pigtail catheter. Catheter was formed within the fluid collection. Approximately 20 cc of brownish serous fluid was aspirated. Catheter was placed to Gaby drain. The patient tolerated the procedure well and left the department in stable condition. IMPRESSION: Successful CT-guided percutaneous drain placement into the left lower quadrant subcutaneous fluid collection. Dictated by: Dictated on workstation # [id number]
== END 2017-11-12 15:15 ==
LOC: SDC 12:17 → SURG 13:19 → SDC 15:15
PROVIDERS: ATTEND Surgery
DX: R18.8 Other ascites (principal)
CPT/HCPCS: 77012; 87070; 87075; 87205

== ENCOUNTER 2017-12-04 08:34 | Emergency (ER) | payer MEDICARE, MEDICAID ==
[~2017-12-04] VITALS: Ht 157.5 cm; Wt 108.9 kg
--- NOTE | 2017-12-04 09:11 | ED General ---
General Chief Complaint: Upper Extremity Stated Complaint: RT SHOULDER BLADE PAIN Nursing Triage Note: PT AMBULATES TO ROOM 3 PT CO OF R SHOULDER PAIN RATES /10 Nursing Sepsis Screen: No Definite Risk Source of Information: Patient Exam Limitations: No Limitations History of Present Illness Date Seen by Provider: Dec 04, 2017 Time Seen by Provider: 08:45 Initial Comments Here with report of pain in the area of the right shoulder. This has been intermittent over the last couple months. Increased pain with vomiting recently. She is not sure why she is vomiting but has long history of that. She is prescribed Zofran. She is prescribed pain medicine as well and that is not working. She has been using Biofreeze and that is not working. She has history of kidney cancer and nephrectomy. She's had postoperative fluid collections and had that drained. Patient has long history of pancreatitis. She has multiple CT scans of the abdomen and pelvis with occasional chest. She did have chest x-ray last month which did not show any acute findings. CT scan of the abdomen and pelvis at the end of October showed the fluid collection and a question of a pulmonary nodule. The previous concerns of then on the left. She does have history of the right shoulder pain and seen last month for that. Timing/Duration: 2-3 Days Severity: Moderate Modifying Factors: improves with Rest Associated Systoms: No Chest Pain, No Cough, No Fever/Chills; Nausea/Vomiting; No Shortness of Air, No Weakness; Other (right shoulder pain) Allergies and Home Medications Allergies Coded Allergies: meperidine (Verified Allergy, Unknown, 08/20/17) penicillin G (Verified Allergy, Unknown, 08/20/17) Home Medications Acetaminophen 500 Mg Tablet, 500-1,000 MG PO Q6H PRN for PAIN-MODERATE, ( Reported) Bisacodyl 5 Mg Tablet, 5-10 MG PO DAILY PRN for CONSTIPATION-4TH LINE, (Reported ) Cyanocobalamin 1,000 Mcg/Ml Inj, 1,000 MCG IJ MONTHLY, (Reported) Cyclobenzaprine HCl 10 Mg Tablet, 10 MG PO Q8H PRN for SPASMS Prescribed by: YUKI MARCH on 10/22/17 9534 Diphenhydramine HCl 25 Mg Capsule, 25 MG PO Q6H PRN for ALLERGIES, (Reported) Estradiol 2 Mg Tablet, 2 MG PO HS, (Reported) Fluoxetine HCl 40 Mg Capsule, 40 MG PO HS, (Reported) Hydrocodone/Acetaminophen 1 Each Tablet, 1-2 TAB PO Q4H PRN for PAIN-MODERATE, ( Reported) Ondansetron 8 Mg Tab.rapdis, 8 MG PO BID, (Reported) Polyethylene Glycol 3350 255 Gm Powder, 17 GM PO BID PRN for CONSTIPATION-2ND LINE, (Reported) Prednisone 20 Mg Tab, 40 MG PO DAILY Prescribed by: YUKI MARCH on 10/22/17 6812 Ropinirole HCl 4 Mg Tablet, 4 MG PO HS, (Reported) Sulfamethoxazole/Trimethoprim 1 Each Tablet, 1 TAB PO BID, (Reported) 10 DAY THERAPY FILLED 08-31-17 Patient Home Medication List Home Medication List Reviewed: Yes Review of Systems Constitutional: see HPI; No chills, No fever Respiratory: no symptoms reported Cardiovascular: no symptoms reported Gastrointestinal: No nausea, No vomiting Genitourinary: no symptoms reported Musculoskeletal: see HPI, joint pain, muscle pain; No muscle weakness; neck pain Skin: no symptoms reported Hematologic/Lymphatic: No Symptoms Reported Past Aaxronm-Pbkqhv-Vnqgno Hx Past Med/Social Hx: Reviewed Nursing Past Med/Soc Hx Patient Social History Alcohol Use: Denies Use Recreational Drug Use: No Smoking Status: Former Smoker Type Used: Cigarettes 2nd Hand Smoke Exposure: No Recent Foreign Travel: No Contact w/Someone Who Travel: No Recent Infectious Disease Expo: No Recent Hopitalizations: No Physical Abuse: No Sexual Abuse: No Immunizations Up To Date Tetanus Booster (TDap): Unknown PED Vaccines UTD: No Date of Pneumonia Vaccine: May 17, 2012 Date of Influenza Vaccine: Jul 03, 2012 Seasonal Allergies Seasonal Allergies: Yes (MILD) Past Medical History Surgeries: Yes Abdominal, Adenoidectomy, Appendectomy, Gallbladder, 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, Nephrectomy, Orthopedic, Tonsillectomy Respiratory: Yes (HASNT USED INHALER IN > 4 YRS) Asthma Currently Using CPAP: No Currently Using BIPAP: No Cardiac: No Neurological: Yes (RESTLESS LEG SYNDROME) Headaches /Migraines 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: No 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 Sexually Transmitted Disease: No HIV/AIDS: No Genitourinary: Yes (L KIDNEY REMOVED FOR TUMOR;) UTI-Chronic Gastrointestinal: Yes (ENLARGED LIVER/FATTY LIVER) Liver Disease/Jaundice, Chronic Constipation, Pancreatitis, Polyps Musculoskeletal: Yes (COCCYX-REPAIRED, MAY HAVE SIGNS OF ARTHRITIS) Chronic Back Pain Endocrine: Yes (CHRONIC PANCREATITIS) HEENT: No Loss of Vision: Denies Hearing Impairment: Denies Cancer: Yes Kidney Did You Recieve Any Treatments: Yes What Type of Treatment Did You: Surgical Intervention Psychosocial: Yes Anxiety, Depression Nursing Suicide Risk Score: 0 Integumentary: No Herpes Blood Disorders: No Adverse Reaction/Blood Tranf: No (N/A) Family Medical History Reviewed Nursing Family Hx Cardiovascular disease 19 FATHER Completed stroke 19 FATHER Diabetes mellitus 19 FATHER Hypercholesterolemia 19 FATHER 19 MOTHER Hypertension 19 FATHER 19 MOTHER Neoplasm 19 MOTHER Psychosocial problem 19 FATHER 19 MOTHER Cancer, Diabetes, Hypertension Physical Exam Vital Signs Vital Signs - First Documented 12/04/17 08:54 Temp 97.5 Pulse 81 Resp 18 B/P (MAP) 129/81 (97) Pulse Ox 97 Capillary Refill : Less Than 3 Seconds General Appearance: No Apparent Distress, WD/WN, Obese HEENT: PERRL/EOMI, TMs Normal, Pharynx Normal Neck: Non Tender, Supple Respiratory: Lungs Clear, Normal Breath Sounds Cardiovascular: Regular Rate, Rhythm, No Murmur Gastrointestinal: Non Tender, Soft Back: Normal Inspection, No CVA Tenderness, No Vertebral Tenderness Extremity: Other (tenderness in the area of the right shoulder superiorly between the shoulder and neck. Musculature along this border is tender and tense. Retains full range of motion. Distal sensation and circulation intact.) Neurologic/Psychiatric: Alert, Oriented x3 Skin: Normal Color, Warm/Dry Progress/Results/Core Measures Suspected Sepsis Recent Fever Within 48 Hours: No Infection Criteria Present: None New/Unexplained Altered Menta: No Sepsis Screen: No Definite Risk SIRS Temperature:97.5 Pulse: 81 Respiratory Rate: 18 Blood Pressure 129 /81 Mean: 97 Results/Orders Vital Signs/I&O 12/04/17 08:54 Temp 97.5 Pulse 81 Resp 18 B/P (MAP) 129/81 (97) Pulse Ox 97 Capillary Refill : Less Than 3 Seconds Blood Pressure Mean: 97 Progress Note : Progress Note Seen and evaluated. I did review the previous history including CT scan and x- ray. Patient has a CT scheduled for Saturday at for both chest and abdomen/ pelvis. I will defer to that scheduled appointment for further CT scanning as patient has significant number of CT scans in the past. This was discussed with the patient who agrees. We will provide small pain medicine prescription for interim pain as well as muscle relaxers. I did discuss with the patient about concerns about narcotics as well as CT scans and radiation load. Patient verbalize understanding. Discharged home with return precautions. Patient verbalize understanding instructions and agreement with plan. Departure Impression Primary Impression: Shoulder pain, right Qualified Codes: M25.511 - Pain in right shoulder Disposition: HOME, SELF-CARE Condition: Improved Departure-Patient Inst. Decision time for Depature: 09:20 Referrals: CARMEN GIBBS MD (PCP/Family) Primary Care Physician Patient Instructions: Shoulder Pain (DC) Add. Discharge Instructions: All discharge instructions reviewed with patient and/or family. Voiced understanding. As scheduled next Saturday for CT scans. It is very important that he keep follow -up appointments. Do not exceed more than 4000 mg of Tylenol/acetaminophen daily including all types of medicine with acetaminophen in then. You may use topical agent such as icy hot with lidocaine, Aspercreme with lidocaine or Biofreeze to area of concern as needed. Return for worsening, fever, vomiting, weakness, breathing problems or other concerns as needed. Scripts Hydrocodone Bit/Acetaminophen (LORTAB 7.5 MG TABLET) 1 Ea Tablet 1-2 EACH PO Q8H, #14 TAB 0 Refills Prov: YUKI MARCH MD 12/04/17 Cyclobenzaprine HCl (Cyclobenzaprine HCl) 10 Mg Tablet 10 MG PO Q8H PRN for SPASMS, #20 TAB 0 Refills Prov: YUKI MARCH MD 12/04/17 YUKI MARCH MD Dec 04, 2017 09:11
[2017-12-04] MEDS ORDERED: CYCL10TA9 PO (09:23)
[2017-12-04] MEDS ORDERED: HYDR-34 PO (09:23)
[2017-12-04 09:31] VITALS: BP 129/81
== END 2017-12-04 09:31 | disposition home or self-care (01) ==
LOC: EDUNIT# 08:34 → ER 08:36
DX: M25.511 Pain in right shoulder (principal); J45.909 Unspecified asthma, uncomplicated; G43.909 Migraine, unspecified, not intractable, without status migrainosus; F41.9 Anxiety disorder, unspecified; F32.9 Major depressive disorder, single episode, unspecified; Z90.49 Acquired absence of other specified parts of digestive tract; Z90.710 Acquired absence of both cervix and uterus; Z90.5 Acquired absence of kidney; Z87.19 Personal history of other diseases of the digestive system; Z90.89 Acquired absence of other organs; Z85.528 Personal history of other malignant neoplasm of kidney; Z79.52 Long term (current) use of systemic steroids
CPT/HCPCS: 99282

== ENCOUNTER 2017-12-13 16:38 | Emergency (ER) | payer MEDICARE, MEDICAID ==
[~2017-12-13] VITALS: Ht 157.5 cm; Wt 113.4 kg
[2017-12-13 17:27] LABS: BASOPHILS % (AUTO) 0 % (0-10); EOSINOPHILS # (AUTO) 0.3 10^3/uL (0.0-0.3); EOSINOPHILS % (AUTO) 3 % (0-10); HEMATOCRIT 37 % (35-52); HEMOGLOBIN 12.4 G/DL (11.5-16.0); LYMPHOCYTES # (AUTO) 2.9 X 10^3 (1.0-4.0); LYMPHOCYTES % (AUTO) 30 % (12-44); MEAN CORPUSCULAR HEMOGLOBIN 28 PG (25-34); MEAN CORPUSCULAR HGB CONC 33 G/DL (32-36); MEAN CORPUSCULAR VOLUME 85 FL (80-99); MEAN PLATELET VOLUME 10.3 FL (7.4-10.4); MONOCYTES # (AUTO) 0.4 X 10^3 (0.0-1.0); MONOCYTES % (AUTO) 4 % (0-12); NEUTROPHILS # (AUTO) 6.2 X 10^3 (1.8-7.8); NEUTROPHILS % (AUTO) 63 % (42-75); PLATELET COUNT 315 10^3/uL (130-400); RED BLOOD COUNT 4.38 10^6/uL (4.35-5.85); RED CELL DISTRIBUTION WIDTH 14.5 % (10.0-14.5); WHITE BLOOD COUNT 9.8 10^3/uL (4.3-11.0)
[2017-12-13] MEDS ORDERED: NS IV 1000 ML 1,000 ML IV SCH (17:30)
[2017-12-13] MEDS ORDERED: ONDANSETRON 4 MG/2 ML (SDV) Z0FRAN IVP ONE (17:30)
[2017-12-13] MEDS ORDERED: metroNIDAZOLE 500 MG (FLAGYL) TAB PO ONE (17:30)
--- NOTE | 2017-12-13 17:33 | ED GI ---
General Chief Complaint: Abdominal/GI Problems Stated Complaint: N / FEELS LIKE VOMITING / BLOODY DIARRHEA Source of Information: Patient Exam Limitations: No Limitations History of Present Illness Date Seen by Provider: Dec 13, 2017 Time Seen by Provider: 17:31 Initial Comments to ER with reports of C. difficile.she saw her primary care provider at the beginning of this week for bloody stools and abdominal cramping. She's been on several rounds of antibiotics over the past few months for various infections. She had an outpatient stool sample ordered and was called by [facility] earlier today and told she had C. difficile. She has never had C. difficile before. She' s had a left renal cell carcinoma with nephrectomy so she is worried about dehydration as she is not been eating much or drinking much in an attempt to reduce stool output.. Timing/Duration: 3-4 Days Severity/Quality: Cramping Location: RLQ Radiation: No Radiation Allergies and Home Medications Allergies Coded Allergies: meperidine (Verified Allergy, Unknown, 08/20/17) penicillin G (Verified Allergy, Unknown, 08/20/17) Home Medications Acetaminophen 500 Mg Tablet, 500-1,000 MG PO Q6H PRN for PAIN-MODERATE, ( Reported) Bisacodyl 5 Mg Tablet, 5-10 MG PO DAILY PRN for CONSTIPATION-4TH LINE, (Reported ) Cyanocobalamin 1,000 Mcg/Ml Inj, 1,000 MCG IJ MONTHLY, (Reported) Cyclobenzaprine HCl 10 Mg Tablet, 10 MG PO Q8H PRN for SPASMS Prescribed by: YUKI MARCH on 10/22/17 1552 Cyclobenzaprine HCl 10 Mg Tablet, 10 MG PO Q8H PRN for SPASMS Prescribed by: YUKI MARCH on 12/04/17 09 Diphenhydramine HCl 25 Mg Capsule, 25 MG PO Q6H PRN for ALLERGIES, (Reported) Estradiol 2 Mg Tablet, 2 MG PO HS, (Reported) Fluoxetine HCl 40 Mg Capsule, 40 MG PO HS, (Reported) Hydrocodone Bit/Acetaminophen 1 Ea Tablet, 1-2 EACH PO Q8H Prescribed by: YUKI MARCH on 12/04/17 0923 Hydrocodone/Acetaminophen 1 Each Tablet, 1-2 TAB PO Q4H PRN for PAIN-MODERATE, ( Reported) Ondansetron 8 Mg Tab.rapdis, 8 MG PO BID, (Reported) Polyethylene Glycol 3350 255 Gm Powder, 17 GM PO BID PRN for CONSTIPATION-2ND LINE, (Reported) Prednisone 20 Mg Tab, 40 MG PO DAILY Prescribed by: YUKI MARCH on 10/22/17 8652 Ropinirole HCl 4 Mg Tablet, 4 MG PO HS, (Reported) Sulfamethoxazole/Trimethoprim 1 Each Tablet, 1 TAB PO BID, (Reported) 10 DAY THERAPY FILLED 08-31-17 Patient Home Medication List Home Medication List Reviewed: Yes Review of Systems Constitutional: see HPI; No chills, No fever EENTM: No Symptoms Reported Cardiovascular: No Symptoms Reported Gastrointestinal: See HPI, Abdominal Pain, Diarrhea, Nausea Genitourinary: No Symptoms Reported Musculoskeletal: no symptoms reported Skin: no symptoms reported Psychiatric/Neurological: No Symptoms Reported Endocrine: No Symptoms Reported Past Piborum-Uykbmh-Qewizq Hx Patient Social History Type Used: Cigarettes 2nd Hand Smoke Exposure: No Recent Foreign Travel: No Contact w/Someone Who Travel: No Recent Hopitalizations: No Immunizations Up To Date Tetanus Booster (TDap): Unknown PED Vaccines UTD: No Date of Pneumonia Vaccine: May 17, 2012 Date of Influenza Vaccine: Jul 03, 2012 Seasonal Allergies Seasonal Allergies: Yes (MILD) Past Medical History Surgeries: Yes Abdominal, Adenoidectomy, Appendectomy, Gallbladder, 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, Nephrectomy, Orthopedic, Tonsillectomy Respiratory: Yes (HASNT USED INHALER IN > 4 YRS) Asthma Currently Using CPAP: No Currently Using BIPAP: No Cardiac: No Neurological: Yes (RESTLESS LEG SYNDROME) Headaches /Migraines 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: No 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 Sexually Transmitted Disease: No HIV/AIDS: No Genitourinary: Yes (L KIDNEY REMOVED FOR TUMOR;) UTI-Chronic Gastrointestinal: Yes (ENLARGED LIVER/FATTY LIVER) Liver Disease/Jaundice, Chronic Constipation, Pancreatitis, Polyps Musculoskeletal: Yes (COCCYX-REPAIRED, MAY HAVE SIGNS OF ARTHRITIS) Chronic Back Pain Endocrine: Yes (CHRONIC PANCREATITIS) HEENT: No Loss of Vision: Denies Hearing Impairment: Denies Cancer: Yes Kidney Did You Recieve Any Treatments: Yes What Type of Treatment Did You: Surgical Intervention Psychosocial: Yes Anxiety, Depression Integumentary: No Herpes Blood Disorders: No Adverse Reaction/Blood Tranf: No (N/A) Family Medical History Cardiovascular disease 19 FATHER Completed stroke 19 FATHER Diabetes mellitus 19 FATHER Hypercholesterolemia 19 FATHER 19 MOTHER Hypertension 19 FATHER 19 MOTHER Neoplasm 19 MOTHER Psychosocial problem 19 FATHER 19 MOTHER Cancer, Diabetes, Hypertension Physical Exam Vital Signs Vital Signs - First Documented 12/13/17 16:56 Temp 96.9 Pulse 84 Resp 18 B/P (MAP) 143/76 (98) Pulse Ox 99 O2 Delivery Room Air Capillary Refill : General Appearance: WD/WN, no apparent distress, obese HEENT: PERRL/EOMI, normal ENT inspection Neck: non-tender, full range of motion Respiratory: no respiratory distress, no accessory muscle use Gastrointestinal: normal bowel sounds, non tender, soft Extremities: normal range of motion, non-tender Neurologic/Psychiatric: alert, normal mood/affect, oriented x 3 Skin: normal color, warm/dry Progress/Results/Core Measures Results/Orders Lab Results Laboratory Tests Test 12/13/17 17:12 12/13/17 17:47 Range/Units White Blood Count 9.8 4.3-11.0 10^3/uL Red Blood Count 4.38 4.35-5.85 10^6/uL Hemoglobin 12.4 11.5-16.0 G/DL Hematocrit 37 35-52 % Mean Corpuscular Volume 85 80-99 FL Mean Corpuscular Hemoglobin 28 25-34 PG Mean Corpuscular Hemoglobin Concent 33 32-36 G/DL Red Cell Distribution Width 14.5 10.0-14.5 % Platelet Count 315 130-400 10^3/uL Mean Platelet Volume 10.3 7.4-10.4 FL Neutrophils (%) (Auto) 63 42-75 % Lymphocytes (%) (Auto) 30 12-44 % Monocytes (%) (Auto) 4 0-12 % Eosinophils (%) (Auto) 3 0-10 % Basophils (%) (Auto) 0 0-10 % Neutrophils # (Auto) 6.2 1.8-7.8 X 10^3 Lymphocytes # (Auto) 2.9 1.0-4.0 X 10^3 Monocytes # (Auto) 0.4 0.0-1.0 X 10^3 Eosinophils # (Auto) 0.3 0.0-0.3 10^3/uL Basophils # (Auto) 0.0 0.0-0.1 10^3/uL Sodium Level 139 135-145 MMOL/L Potassium Level 4.4 3.6-5.0 MMOL/L Chloride Level 108 H 98-107 MMOL/L Carbon Dioxide Level 19 L 21-32 MMOL/L Anion Gap 12 5-14 MMOL/L Blood Urea Nitrogen 12 7-18 MG/DL Creatinine 0.84 0.60-1.30 MG/DL Estimat Glomerular Filtration Rate > 60 BUN/Creatinine Ratio 14 Glucose Level 98 70-105 MG/DL Calcium Level 9.3 8.5-10.1 MG/DL Total Bilirubin 0.3 0.1-1.0 MG/DL Aspartate Amino Transf (AST/SGOT) 51 H 5-34 U/L Alanine Aminotransferase (ALT/SGPT) 20 0-55 U/L Alkaline Phosphatase 53 40-136 U/L Total Protein 8.0 6.4-8.2 GM/DL Albumin 3.8 3.2-4.5 GM/DL Urine Color YELLOW Urine Clarity SLIGHTLY CLOUDY Urine pH 6 5-9 Urine Specific [place] 1.020 1.016-1.022 Urine Protein 1+ H NEGATIVE Urine Glucose (UA) NEGATIVE NEGATIVE Urine Ketones NEGATIVE NEGATIVE Urine Nitrite NEGATIVE NEGATIVE Urine Bilirubin NEGATIVE NEGATIVE Urine Urobilinogen NORMAL NORMAL MG/DL Urine Leukocyte Esterase NEGATIVE NEGATIVE Urine RBC (Auto) NEGATIVE NEGATIVE Urine RBC NONE /HPF Urine WBC RARE /HPF Urine Squamous Epithelial Cells 5-10 /HPF Urine Crystals NONE /LPF Urine Bacteria NEGATIVE /HPF Urine Casts NONE /LPF Urine Mucus NEGATIVE /LPF Urine Culture Indicated NO My Orders Orders - GEORGES FINN APRN Cbc With Automated Diff (12/13/17 17:21) Comprehensive Metabolic Panel (12/13/17 17:21) Ua Culture If Indicated (12/13/17 17:21) Iv Heplock-Insert (Order) (12/13/17 17:21) Ns Iv 1000 Ml (Sodium Chloride 0.9%) (12/13/17 17:30) Ondansetron Injection (Zofran Injectio (12/13/17 17:30) Metronidazole Tablet (Flagyl Tablet) (12/13/17 17:30) Medications Given in ED Current Medications Medications Dose Ordered Sig/Neal Route Start Time Stop Time Status Last Admin Dose Admin Metronidazole 500 mg ONCE ONCE PO 12/13/17 17:30 12/13/17 17:31 DC 12/13/17 17:51 500 MG Ondansetron HCl 8 mg ONCE ONCE IVP 12/13/17 17:30 12/13/17 17:31 DC 12/13/17 17:50 8 MG Vital Signs/I&O 12/13/17 16:56 Temp 96.9 Pulse 84 Resp 18 B/P (MAP) 143/76 (98) Pulse Ox 99 O2 Delivery Room Air Departure Impression Primary Impression: Clostridium difficile diarrhea Disposition: HOME, SELF-CARE Condition: Stable Departure-Patient Inst. Decision time for Depature: 17:33 Referrals: CARMEN GIBBS MD (PCP/Family) Primary Care Physician Patient Instructions: Clostridium difficile Add. Discharge Instructions: 1. Drink plenty of fluids to stay hydrated 2.antibiotics as directed 3. Take an mvva-xfg-addrwix probiotic such as yogurt or a pill form of probiotic. Return to ER for any high fevers or severe pain. Follow-up with your doctor next week. Scripts Metronidazole (Flagyl) 500 Mg Tablet 500 MG PO TID, #30 TAB Prov: GEORGES FINN APRN 12/13/17 GEORGES FINN APRN Dec 13, 2017 17:33
[2017-12-13 17:41] LABS: ALANINE AMINOTRANSFERASE 20 U/L (0-55); ALBUMIN 3.8 GM/DL (3.2-4.5); ALKALINE PHOSPHATASE 53 U/L (40-136); BILIRUBIN,TOTAL 0.3 MG/DL (0.1-1.0); BUN/CREATININE RATIO 14; CALCIUM 9.3 MG/DL (8.5-10.1); CARBON DIOXIDE 19 MMOL/L (21-32); CHLORIDE 108 MMOL/L (98-107); CREATININE SERUM 0.84 MG/DL (0.60-1.30); GFR ESTIMATED > 60; GLUCOSE 98 MG/DL (70-105); POTASSIUM 4.4 MMOL/L (3.6-5.0); SODIUM 139 MMOL/L (135-145)
[2017-12-13 17:57] LABS: BILIRUBIN,URINE NEGATIVE (NEGATIVE); CLARITY,URINE SLIGHTLY CLOUDY; COLOR,URINE YELLOW; GLUCOSE, URINE (UA) NEGATIVE (NEGATIVE); KETONES,URINE NEGATIVE (NEGATIVE); LEUKOCYTE ESTERASE ,URINE NEGATIVE (NEGATIVE); NITRITE,URINE NEGATIVE (NEGATIVE); PH,URINE 6 (5-9); PROTEIN,URINE 1+ (NEGATIVE); UROBILINOGEN,URINE NORMAL (NORMAL)
[2017-12-13 18:05] LABS: BACTERIA,URINE NEGATIVE /HPF; WBC,URINE RARE /HPF
[2017-12-13] MEDS ORDERED: METR500T PO (18:15)
[2017-12-13 19:06] VITALS: BP 143/76
== END 2017-12-13 19:06 | disposition home or self-care (01) ==
LOC: EDUNIT# 16:38 → ER 16:40
DX: A04.72 Enterocolitis due to Clostridium difficile, not specified as recurrent (principal); F41.9 Anxiety disorder, unspecified; F32.9 Major depressive disorder, single episode, unspecified; J45.909 Unspecified asthma, uncomplicated; G43.909 Migraine, unspecified, not intractable, without status migrainosus; G25.81 Restless legs syndrome; Z87.19 Personal history of other diseases of the digestive system; Z85.528 Personal history of other malignant neoplasm of kidney; Z90.710 Acquired absence of both cervix and uterus; Z90.49 Acquired absence of other specified parts of digestive tract; Z90.89 Acquired absence of other organs; Z90.5 Acquired absence of kidney; Z79.52 Long term (current) use of systemic steroids; Z88.0 Allergy status to penicillin; Z88.6 Allergy status to analgesic agent
CPT/HCPCS: 36415; 80053; 81000; 85025; 96361; 96374

== ENCOUNTER 2017-12-18 01:22 | Emergency (ER) | payer MEDICARE, MEDICAID ==
[~2017-12-18] VITALS: Ht 157.5 cm; Wt 117.9 kg
[~2017-12-18 01:22] MED LIST changes: +METR500T PO
--- OUTSIDE RECORDS SUMMARY | 2017-12-18 01:28 | XMS REPORT | Encounter Summary ---
Author Author [facility] Organization [facility] Address Unknown Phone Unavailable Care Team Providers Care Java Development Team Lead Name Role Phone Michael Sutton MD Unavailable Unavailable Mary Whittington MD PCP Jessica Valera Unavailable Maggie Puente Unavailable Unavailable Mary Telles APRN Unavailable Bam Ritter MD Unavailable Radha Bo LPN Unavailable Unavailable Jose Sanchez MD Unavailable Encounter Details Date Type Department Care Team Description 12/09/2017 Procedure Pass [facility] Exam [address] [place] [address] Social History Tobacco Use Types Packs/Day Years [...] Treatment Date Type Specialty Care Team Description 12/09/2017 Procedure Pass Oncology 12/09/2017 Procedure Pass Oncology as of this encounter Visit Diagnoses Not on filein this encounter
--- OUTSIDE RECORDS SUMMARY | 2017-12-18 01:28 | XMS REPORT | Encounter Summary ---
Author Author [facility] Organization [facility] Address Unknown Phone Unavailable Care Team Providers Care Concession Cashier Name Role Phone Michael Sutton MD Unavailable Unavailable Mary Whittington MD PCP UtJessica weaver Unavailable Maggie Puente Unavailable Unavailable Mary Telles APRN Unavailable Bam Ritter MD Unavailable Radha Bo LPN Unavailable Unavailable Jose Sanchez MD Unavailable Encounter Details Date Type Department Care Team Description 12/17/2017 Orders Only [facility] eJssica Valera ARNP Diarrhea, unspecified Physicians [address] type Ortho and [facility] [place] [address] [place] [address] [phone] [place] [address] Social History Tobacco Use Types [...] Oncology as of this encounter Results * LEUKOCYTES, FECAL (12/11/2017) Specimen Performing Laboratory Stool - Feces MAIN LAB [address] [place] [id number] * GIARDIA SCREEN,FECAL (12/11/2017) Specimen Performing Laboratory Feces MAIN LAB [address] [place] [id number] * CRYPTOSPORIDUM,FECAL (12/11/2017) Specimen Performing Laboratory Stool - Feces [facility] [address] [place] [id number] * CULTURE-FECES W/SENSITIVITY (12/11/2017) Specimen Performing Laboratory Stool - Feces [facility] [address] [place] [phone] in this encounter Visit Diagnoses Diagnosis Diarrhea, unspecified type
--- OUTSIDE RECORDS SUMMARY | 2017-12-18 01:28 | XMS REPORT | Encounter Summary ---
Author Author [facility] Organization [facility] Address Unknown Phone Unavailable Care Team Providers Care Sheet Folder Name Role Phone Michael Sutton MD Unavailable Unavailable Mary Whittington MD PCP UtJessica weaver Unavailable Maggie Puente Unavailable Unavailable Mary Telles APRN Unavailable Bam Ritter MD Unavailable Radha Bo LPN Unavailable Unavailable Jose Sanchez MD Unavailable Encounter Details Date Type Department Care Team Description 12/16/2017 Orders Only [facility] Jessica Valera ARNP Diarrhea, unspecified Physicians [address] type [facility] [place] [address] [place] [address] [phone] [place] [address] Social History Tobacco Use Types [...] Oncology as of this encounter Results * C DIFFICILE BY PCR (12/11/2017) Specimen Performing Laboratory Feces OTHER OUTSIDE LAB in this encounter Visit Diagnoses Diagnosis Diarrhea, unspecified type
--- OUTSIDE RECORDS SUMMARY | 2017-12-18 01:28 | XMS REPORT | Clinical Summary ---
Author Author [facility] Organization [facility] Address Unknown Phone Unavailable Care Team Providers Care Business Strategy Manager Name Role Phone Michael Sutton MD [...] in the Health Information Management department at [phone] for further assistance in locating additional records.[facility] Allergies Active Allergy Reactions Severity Noted [...] 3 Active capsule at bedtime daily. 17 HYDROcodone/acetaminophen Take 1 tablet by mouth 20 tablet 0 04/11/20 Active (NORCO) 7.5/325 mg every 6 hours as needed 17 tabletIndications: Pain for Pain Indications: PAIN acetaminophen (TYLENOL) Take [...] tongue to disolve. Chronic nausea, Chronic vomiting cyanocobalamin (VITAMIN INJECT 1ML INTO THE 1 mL 3 10/03/19 Active B-12, RUBRAMIN) 1,000 MUSCLE EVERY 30 DAYS 18 mcg/mL injectionIndications: Medication monitoring encounter byzdaa-udafocps-azlcbxs Take 3 tablets by mouth 300 tablet 5 12/12/19 Active (VIOKACE) 20,880-78,300- three times daily with 18 78,300 unit tab meals. Take 2 with snacks. hydrocortisone 2.5% Apply externally and 30 g 0 12/14/19 Active (PROCTO-MED HC) 2.5 % internally to area(s) 18 rectal cream twice to three times a day as needed. polyethylene glycol 3350 Take 1 packet by mouth 12 each 5 04/11/20 12/10/19 Discontin (MIRALAX) 17 g daily. Indications: 17 18 ued packetIndications: CONSTIPATION constipation senna/docusate Take 1 tablet by mouth 15 tablet 0 04/11/20 12/10/19 Discontin (SENOKOT-S) 8.6/50 mg twice daily. Indications: 17 18 ued tabletIndications: CONSTIPATION constipation ferrous sulfate (IRON Take 1 tablet by mouth 60 tablet 3 09/06/19 Discontin (FERROUS SULFATE)) 325 mg twice daily for 120 days. 18 18 ued (65 mg iron) Take with 8 ounces of tabletIndications: orange juice Medication monitoring encounter hydrocortisone Insert or Apply 1 14 0 12/10/19 12/14/19 Discontin (ANUSOL-HC) 25 mg rectal suppository to rectal suppository 18 18 ued suppositoryIndications: area as directed at Diarrhea, unspecified bedtime daily. type pramoxine-hydrocortisone Apply internally and 30 g 0 12/13/19 Discontin (ANALPRAM-HC; HC PRAM) externally to area(s) 18 18 ued 1-1 % rectal cream twice to three times a day for 1 week Active Problems Problem Noted Date Left renal mass 04/10/2017 Renal mass 03/21/2017 Overview: Added automatically from request for surgery [id number] 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 06/24/2013 Overview: S/P HOLLAND, BSO 11/27 Depression 06/24/2013 S/P cholecystectomy 06/24/2013 Overview: 2007 S/P appendectomy 06/24/2013 Overview: November 2012 Pancreatitis 10/23/2011 Encounters Date Type Specialty Care Team Description 12/17/2017 Telephone Gastroenterology Moraima Jessica HORTICULTURAL MANAGER Medication Follow-up 12/17/2017 Orders Only Gastroenterology Utech Jessica, HORTICULTURAL MANAGER Diarrhea, unspecified type 12/16/2017 Orders Only Gastroenterology Moraima Jessica, HORTICULTURAL MANAGER Diarrhea, unspecified type 12/13/2017 Telephone Gastroenterology Randy Nunez MD Other 12/13/2017 Telephone Gastroenterology Moraima Jessica HORTICULTURAL MANAGER C Diff ( Positive C Diff) 12/13/2017 Telephone Gastroenterology Moraima Jessica HORTICULTURAL MANAGER Prior Authorization (Viokace ) 12/11/2017 Telephone Gastroenterology Moraima Jessica HORTICULTURAL MANAGER Other (plan of care) 12/10/2017 Telephone Gastroenterology Moraima Jessica HORTICULTURAL MANAGER Prior Authorization (Hydrocortisone rectal suppository 25mg ) 12/10/2017 Ancillary Radiology Outpatient, Radiologist Diagnosis unknown Orders 12/10/2017 Ancillary Radiology Outpatient, Radiologist Orders 12/10/2017 Ancillary Radiology Outpatient, Radiologist Diagnosis unknown Orders 12/09/2017 Office Visit Gastroenterology Utmeg Jessiac, HORTICULTURAL MANAGER Diarrhea, unspecified type (Primary Dx); Epigastric pain; Chronic pancreatitis, unspecified pancreatitis type (HCC); Nausea and vomiting, intractability of vomiting not specified, unspecified vomiting type 12/09/2017 Office Visit Oncology Abel Poe MD Left renal mass ( Primary Dx) 12/09/2017 Hospital Radiology Abel Poe MD Arrived Encounter 12/04/2017 Telephone Gastroenterology Randy Nunez MD Other 11/12/2017 Hospital Radiology Encounter 11/11/2017 Hospital Radiology Encounter 11/08/2017 Hospital Radiology Abel Poe MD Canceled (Other) Encounter 10/31/2017 Telephone Abel Poe MD Results 10/22/2017 Hospital Radiology Encounter 10/01/2017 Hospital Radiology Encounter 10/01/2017 Refill Gastroenterology Randy Nunez MD Medication monitoring encounter 05/06/2017 Procedure Pass Radiology 05/06/2017 Procedure Pass Radiology from Last 3 Months Family History Medical [...] Vital Sign Reading Time Taken Blood Pressure 125/78 12/09/2017 2:47 PM CDT Pulse 80 12/09/2017 2:47 PM CDT Temperature 36.4 C (97.6 F) 12/09/2017 2:47 PM CDT Respiratory Rate 20 12/09/2017 1:24 PM CDT Oxygen Saturation 99% 12/09/2017 1:24 PM CDT Inhaled Oxygen - - Concentration Weight 119.3 kg (263 lb) 12/09/2017 2:47 PM CDT Height 157.5 cm (5' 2") 12/09/2017 2:47 PM CDT Body Mass Index 48.1 12/09/2017 2:47 PM CDT Plan of Treatment Date Type Specialty Care Team Description 12/09/2017 Procedure Pass Oncology 12/09/2017 Procedure Pass Oncology Health Maintenance Due Date Last Done Comments PHYSICAL (COMPREHENSIVE) 1991 EXAM PERTUSSIS VACCINE 1995 HIV SCREENING 1999 TETANUS VACCINE 2001 CERVICAL CANCER SCREENING 2014 INFLUENZA VACCINE 03/17/2018 Results * C DIFFICILE BY PCR (12/11/2017) Specimen Performing Laboratory Feces OTHER OUTSIDE LAB * LEUKOCYTES, FECAL (12/11/2017) Specimen Performing Laboratory Stool - Feces MAIN LAB [address] [place] [address] * GIARDIA SCREEN,FECAL (12/11/2017) Specimen Performing Laboratory Feces MAIN LAB [address] [place] [address] * CULTURE-FECES W/SENSITIVITY (12/11/2017) Specimen Performing Laboratory Stool - Feces MAIN LAB [address] [place] [address] * CRYPTOSPORIDUM,FECAL (12/11/2017) Specimen Performing Laboratory Stool - Feces [facility] [address] [place] [address] * BASIC METABOLIC PANEL (12/09/2017 11:38 AM) Component Value Ref Range Sodium 134 (L) 137 - 147 MMOL/L Potassium 3.6 3.5 - 5.1 MMOL/L Chloride 101 98 - 110 MMOL/L CO2 26 21 - 30 MMOL/L Anion Gap 7 3 - 12 Glucose 152 (H) 70 - 100 MG/DL Blood Urea Nitrogen 11 7 - 25 MG/DL Creatinine 0.93 0.4 - 1.00 MG/DL Calcium 8.7 8.5 - 10.6 MG/DL eGFR Non >60 >60 mL/min Comment: The eGFR is not validated for use in drug dosing adjustments.Continue to use estimated creatinine clearance per dosing reference text.Please contact the Clinical Pharmacist for questions. eGFR >60 >60 mL/min Comment: The eGFR is not validated for use in drug dosing adjustments.Continue to use estimated creatinine clearance per dosing reference text.Please contact the Clinical Pharmacist for questions. Specimen Performing Laboratory Blood [facility] [address] [place] [address] * POC CREATININE, RAD (12/09/2017 9:55 AM) Component Value Ref Range Creatinine, POC 0.8 0.4 - 1.00 MG/DL Specimen Performing Laboratory [facility] [address] [place] [address] * CT ABDOMEN W CONTRAST (12/09/2017 9:55 AM) Specimen Performing Laboratory [facility] RAD RESULTS Impressions CHEST: 1.Compromised exam due to respiratory motion. 2.No thoracic adenopathy. 3.Stable pulmonary or pleural nodule in the left lower lobe. This could represent metastasis or scarring. ABDOMEN: 1.Previous left nephrectomy without recurrent left renal fossa mass or abdominal metastases. Approved by Aidan Leone D.O. on 12/09/2017 12:05 PM By my electronic signature, I attest that I have personally reviewed the images for this examination and formulated the interpretations and opinions expressed in this report Finalized by Daniel Escobar M.D. on 12/09/2017 12:28 PM. Dictated by Aidan Leone D.O. on 12/09/2017 11:[address] CHEST AND ABDOMEN Clinical Indication:Female, 32 years old. Left renal mass. Renal cell carcinoma. Technique: Multiple contiguous axial images were obtained through the chest and abdomen following the administration of IV contrast material. Arterial, portal venous and delayed phases were obtained. Post processing coronal and sagittal reconstruction images were made from the axial images. IV contrast: Omnipaque-350 Bowel contrast:None Comparison: Multiple prior comparison CTs including the most recent dated 2017 CHEST FINDINGS: Lower Neck: Unremarkable Axilla, Mediastinum and Betzy: No thoracic lymphadenopathy. Heart and Great Vessels: The heart is normal in size. Normal caliber thoracic aorta. Airway, Lungs and Pleura: The central airways are patent. Evaluation of the lung parenchyma is somewhat limited due to motion artifact. 1.7 x 1.4 cm left lower lobe pulmonary or pleural nodule (image 3/34) is unchanged since July 2017, was poorly seen in March 2017, and was not present on imaging prior to March 2017. Atelectasis in the left posterior costophrenic sulcus. No pleural effusion. Chest Wall and Osseous Structures: No aggressive lytic osseous lesion. ABDOMEN FINDINGS: Liver and spleen: The liver and spleen are normal in size. Prior cholecystectomy. Adrenal Glands and Kidneys: The adrenal glands are unremarkable. The left kidney is surgically absent. No recurrent left renal fossa mass. The right kidney is unremarkable. Pancreas and Retroperitoneum: The pancreas is unremarkable. No retroperitoneal lymphadenopathy. Aorta and Major Vessels: Normal caliber aortoiliac arteries. Bowel, Mesentery and Peritoneal space: Unremarkable. Abdominal wall and Osseous Structures: No aggressive osseous lesion. Procedure Note Interface, Radiant Results - 12/09/2017 12:[address] CHEST AND ABDOMEN Clinical Indication: Female, 32 years old. Left renal mass. Renal cell carcinoma. Technique: Multiple contiguous axial images were obtained through the chest and abdomen following the administration of IV contrast material. Arterial, portal venous and delayed phases were obtained. Post processing coronal and sagittal reconstruction images were made from the axial images. IV contrast: Omnipaque-350 Bowel contrast: None Comparison: Multiple prior comparison CTs including the most recent dated 2017 CHEST FINDINGS: Lower Neck: Unremarkable Axilla, Mediastinum and Betzy: No thoracic lymphadenopathy. Heart and Great Vessels: The heart is normal in size. Normal caliber thoracic aorta. Airway, Lungs and Pleura: The central airways are patent. Evaluation of the lung parenchyma is somewhat limited due to motion artifact. 1.7 x 1.4 cm left lower lobe pulmonary or pleural nodule (image 3/34) is unchanged since July 2017, was poorly seen in March 2017, and was not present on imaging prior to March 2017. Atelectasis in the left posterior costophrenic sulcus. No pleural effusion. Chest Wall and Osseous Structures: No aggressive lytic osseous lesion. ABDOMEN FINDINGS: Liver and spleen: The liver and spleen are normal in size. Prior cholecystectomy. Adrenal Glands and Kidneys: The adrenal glands are unremarkable. The left kidney is surgically absent. No recurrent left renal fossa mass. The right kidney is unremarkable. Pancreas and Retroperitoneum: The pancreas is unremarkable. No retroperitoneal lymphadenopathy. Aorta and Major Vessels: Normal caliber aortoiliac arteries. Bowel, Mesentery and Peritoneal space: Unremarkable. Abdominal wall and Osseous Structures: No aggressive osseous lesion. IMPRESSION CHEST: 1. Compromised exam due to respiratory motion. 2. No thoracic adenopathy. 3. Stable pulmonary or pleural nodule in the left lower lobe. This could represent metastasis or scarring. ABDOMEN: 1. Previous left nephrectomy without recurrent left renal fossa mass or abdominal metastases. Approved by Aidan Leone D.O. on 12/09/2017 12:05 PM By my electronic signature, I attest that I have personally reviewed the images for this examination and formulated the interpretations and opinions expressed in this report Finalized by Daniel Escobar M.D. on 12/09/2017 12:28 PM. Dictated by Aidan Leone D.O. on 12/09/2017 11:22 AM. * CT CHEST W CONTRAST (12/09/2017 9:55 AM) Specimen Performing Laboratory [facility] RAD RESULTS Impressions CHEST: 1.Compromised exam due to respiratory motion. 2.No thoracic adenopathy. 3.Stable pulmonary or pleural nodule in the left lower lobe. This could represent metastasis or scarring. ABDOMEN: 1.Previous left nephrectomy without recurrent left renal fossa mass or abdominal metastases. Approved by Aidan Leone D.O. on 12/09/2017 12:05 PM By my electronic signature, I attest that I have personally reviewed the images for this examination and formulated the interpretations and opinions expressed in this report Finalized by Daniel Escobar M.D. on 12/09/2017 12:28 PM. Dictated by Aidan Leone D.O. on 12/09/2017 11:[address] CHEST AND ABDOMEN Clinical Indication:Female, 32 years old. Left renal mass. Renal cell carcinoma. Technique: Multiple contiguous axial images were obtained through the chest and abdomen following the administration of IV contrast material. Arterial, portal venous and delayed phases were obtained. Post processing coronal and sagittal reconstruction images were made from the axial images. IV contrast: Omnipaque-350 Bowel contrast:None Comparison: Multiple prior comparison CTs including the most recent dated 2017 CHEST FINDINGS: Lower Neck: Unremarkable Axilla, Mediastinum and Betzy: No thoracic lymphadenopathy. Heart and Great Vessels: The heart is normal in size. Normal caliber thoracic aorta. Airway, Lungs and Pleura: The central airways are patent. Evaluation of the lung parenchyma is somewhat limited due to motion artifact. 1.7 x 1.4 cm left lower lobe pulmonary or pleural nodule (image 3/34) is unchanged since July 2017, was poorly seen in March 2017, and was not present on imaging prior to March 2017. Atelectasis in the left posterior costophrenic sulcus. No pleural effusion. Chest Wall and Osseous Structures: No aggressive lytic osseous lesion. ABDOMEN FINDINGS: Liver and spleen: The liver and spleen are normal in size. Prior cholecystectomy. Adrenal Glands and Kidneys: The adrenal glands are unremarkable. The left kidney is surgically absent. No recurrent left renal fossa mass. The right kidney is unremarkable. Pancreas and Retroperitoneum: The pancreas is unremarkable. No retroperitoneal lymphadenopathy. Aorta and Major Vessels: Normal caliber aortoiliac arteries. Bowel, Mesentery and Peritoneal space: Unremarkable. Abdominal wall and Osseous Structures: No aggressive osseous lesion. Procedure Note Interface, Radiant Results - 12/09/2017 12:[address] CHEST AND ABDOMEN Clinical Indication: Female, 32 years old. Left renal mass. Renal cell carcinoma. Technique: Multiple contiguous axial images were obtained through the chest and abdomen following the administration of IV contrast material. Arterial, portal venous and delayed phases were obtained. Post processing coronal and sagittal reconstruction images were made from the axial images. IV contrast: Omnipaque-350 Bowel contrast: None Comparison: Multiple prior comparison CTs including the most recent dated 2017 CHEST FINDINGS: Lower Neck: Unremarkable Axilla, Mediastinum and Betzy: No thoracic lymphadenopathy. Heart and Great Vessels: The heart is normal in size. Normal caliber thoracic aorta. Airway, Lungs and Pleura: The central airways are patent. Evaluation of the lung parenchyma is somewhat limited due to motion artifact. 1.7 x 1.4 cm left lower lobe pulmonary or pleural nodule (image 3/34) is unchanged since July 2017, was poorly seen in March 2017, and was not present on imaging prior to March 2017. Atelectasis in the left posterior costophrenic sulcus. No pleural effusion. Chest Wall and Osseous Structures: No aggressive lytic osseous lesion. ABDOMEN FINDINGS: Liver and spleen: The liver and spleen are normal in size. Prior cholecystectomy. Adrenal Glands and Kidneys: The adrenal glands are unremarkable. The left kidney is surgically absent. No recurrent left renal fossa mass. The right kidney is unremarkable. Pancreas and Retroperitoneum: The pancreas is unremarkable. No retroperitoneal lymphadenopathy. Aorta and Major Vessels: Normal caliber aortoiliac arteries. Bowel, Mesentery and Peritoneal space: Unremarkable. Abdominal wall and Osseous Structures: No aggressive osseous lesion. IMPRESSION CHEST: 1. Compromised exam due to respiratory motion. 2. No thoracic adenopathy. 3. Stable pulmonary or pleural nodule in the left lower lobe. This could represent metastasis or scarring. ABDOMEN: 1. Previous left nephrectomy without recurrent left renal fossa mass or abdominal metastases. Approved by Aidan Leone D.O. on 12/09/2017 12:05 PM By my electronic signature, I attest that I have personally reviewed the images for this examination and formulated the interpretations and opinions expressed in this report Finalized by Daniel Escobar M.D. on 12/09/2017 12:28 PM. Dictated by Aidan Leone D.O. on 12/09/2017 11:22 AM. * CT ABDOMEN EXTERNAL IMAGING (11/12/2017) Narrative This order has been auto finalized and does not contain a result. * CT ABD/PEL EXTERNAL IMAGING (11/11/2017) Narrative This order has been auto finalized and does not contain a result. * GENERAL RAD CHEST EXTERNAL IMAGING (10/22/2017) Narrative This order has been auto finalized and does not contain a result. * US ABDOMEN EXTERNAL IMAGING (10/01/2017) Narrative This order has been auto finalized and does not contain a result. from Last 3 Months
--- OUTSIDE RECORDS SUMMARY | 2017-12-18 01:28 | XMS REPORT | Encounter Summary ---
Author Author [facility] Organization [facility] Address Unknown Phone Unavailable Care Team Providers Care Internal Sales Engineer Name Role Phone Michael Sutton MD Unavailable Unavailable Mary Whittington MD PCP Jessica Valera Unavailable Maggie Puente Unavailable Unavailable Mary Telles APRN Unavailable Bam Ritter MD Unavailable Radha Bo LPN Unavailable Unavailable Jose Sanchez MD Unavailable Encounter Details Date Type Department Care Team Description 12/09/2017 Procedure Pass [facility] Exam [address] [place] [address] Social History Tobacco Use Types Packs/Day Years [...]
--- OUTSIDE RECORDS SUMMARY | 2017-12-18 01:28 | XMS REPORT | Encounter Summary ---
Author Author [facility] Organization [facility] Address Unknown Phone Unavailable Care Team Providers Care Roller Operator Name Role Phone Michael Sutton MD Unavailable Unavailable Mary Whittington MD PCP Jessica Valera Unavailable Maggie Puente Unavailable Unavailable Mary Telles APRN Unavailable Bam Ritter MD Unavailable Radha Bo LPN Unavailable Unavailable Jose Sanchez MD Unavailable Reason for Visit * Reason Comments Medication Follow-up Encounter Details Date Type Department Care Team Description 12/17/2017 Telephone [facility] Jessica Valera ARNP Medication Follow-up Physicians [address] Ortho and Medical [place] [address] [place] [address] [address] [facility] [phone] [place] [address] Social History Tobacco Use Types [...] encounter Miscellaneous Notes * Telephone Encounter - Jessica Valera ARNP - 12/17/2017 12:01 PM CDT Please call and check on patient next week to make sure her diarrhea is resolving and she is tolerating the Flagyl prescribed by outside provider. * Telephone Encounter - [place] RadhaRADHA - 12/17/2017 10:36 AM CDT Spoke to pt. Relayed results; pt verbalized understanding and states she is taking an abx however thought it was Clindamycin not Vanco. States she has been feeling dehydrated and has just checked into her PCPs office to receive fluids. Continues to c/o abd cramping and diarrhea. Spoke w/ Pao at [facility] who states pt has picked up a prescription for Flagyl 500mg TID x 10 days which was written by a Dr. Javier Ruff. Pharmacy does not have a Rx for Clindamycin on file. Pt has not picked up Rx for Vancomycin which is on hold. ----- Message from KHOA Mayorga sent at 12/17/2017 10:04 AM CDT ----- Call pt. Remaining stool studies negative. Please see if she was able to start Vanco and see how she is feeling. in this encounter Plan of Treatment Date Type Specialty Care Team Description 12/09/2017 Procedure Pass Oncology 12/09/2017 Procedure Pass Oncology as of this encounter Visit Diagnoses Not on filein this encounter
--- OUTSIDE RECORDS SUMMARY | 2017-12-18 01:29 | XMS REPORT | Encounter Summary ---
Author Author [facility] Organization [facility] Address Unknown Phone Unavailable Care Team Providers Care Medical Record Specialist Name Role Phone Michael Sutton MD Unavailable Unavailable Mary Whittington MD PCP Jessica Valera Unavailable Maggie Puente Unavailable Unavailable Mary Telles APRN Unavailable Bam Ritter MD Unavailable Radha Bo LPN Unavailable Unavailable Jose Sanchez MD Unavailable Reason for Visit * Reason Comments Other Encounter Details Date Type Department Care Team Description 12/13/2017 Telephone [facility] Randy Nunez MD Other Physicians - Internal [address] [facility] [place] [address] [place] [address] [place] [address] Social History Tobacco Use Types [...] Telephone Encounter - Arleen Leone RN - 12/13/2017 4:13 PM CDT Attempt to call back patient from message to our office. Left direct phone number for patient to call back. Can see there has been some communication from Radha Bo LPN to patient and perhaps reason for calling our office. in this encounter Plan of Treatment Date Type Specialty Care Team Description 12/09/2017 Procedure Pass Oncology 12/09/2017 Procedure Pass Oncology as of this encounter Visit Diagnoses Not on filein this encounter
--- OUTSIDE RECORDS SUMMARY | 2017-12-18 01:29 | XMS REPORT | Encounter Summary ---
Author Author [facility] Organization [facility] Address Unknown Phone Unavailable Care Team Providers Care Crisis Therapist Name Role Phone Michael Sutton MD Unavailable Unavailable Mary Whittington MD PCP Jessica Valera Unavailable Maggie Puente Unavailable Unavailable Mary Telles APRN Unavailable Bam Rtiter MD Unavailable Radha Bo CARDIAC REHAB NURSE Unavailable Unavailable Jose Sanchez MD Unavailable Encounter Details Date Type Department Care Team Description 05/06/2017 Procedure Pass [facility] Radiology [address] [place] [address] Social History Tobacco Use Types Packs/Day Years [...]
--- OUTSIDE RECORDS SUMMARY | 2017-12-18 01:29 | XMS REPORT | Encounter Summary ---
Author Author [facility] Organization [facility] Address Unknown Phone Unavailable Care Team Providers Care Engineering Coordinator Name Role Phone Michael Sutton MD Unavailable Unavailable Mary Whittington MD PCP Jessica Valera Unavailable Maggie Puente Unavailable Unavailable Mary Telles APRN Unavailable Bam Ritter MD Unavailable Radha Bo LPN Unavailable Unavailable Jose Sanchez MD Unavailable Encounter Details Date Type Department Care Team Description 12/10/2017 Ancillary Rad Outpatient, Radiologist Diagnosis unknown Orders [address] [place] [address] Social History Tobacco Use Types [...] Oncology as of this encounter Results * GENERAL RAD CHEST EXTERNAL IMAGING (10/22/2017) Narrative This order has been auto finalized and does not contain a result. * US ABDOMEN EXTERNAL IMAGING (10/01/2017) Narrative This order has been auto finalized and does not contain a result. * GENERAL RAD ABDOMEN EXTERNAL IMAGING (09/02/2017 12:15 AM) Narrative This order has been auto finalized and does not contain a result. * CT ABD/PEL EXTERNAL IMAGING (09/02/2017) Narrative This order has been auto finalized and does not contain a result. * GENERAL RAD CHEST EXTERNAL IMAGING (07/29/2017) Narrative This order has been auto finalized and does not contain a result. * CT ABD/PEL EXTERNAL IMAGING (04/17/2017) Narrative This order has been auto finalized and does not contain a result. in this encounter Visit Diagnoses Diagnosis Diagnosis unknown Other unknown and unspecified cause of morbidity or mortality
--- OUTSIDE RECORDS SUMMARY | 2017-12-18 01:29 | XMS REPORT | Encounter Summary ---
Author Author [facility] Organization [facility] Address Unknown Phone Unavailable Care Team Providers Care Dimension Specification Inspector Name Role Phone Michael Sutton MD Unavailable Unavailable Mary Whittington MD PCP Jessica Valera Unavailable Maggie Puente Unavailable Unavailable Mary Telles CURRICULUM AND ASSESSMENT COORDINATOR Unavailable Bam Ritter MD Unavailable Radha Bo AUDIT TECH Unavailable Unavailable Jose Sanchez MD Unavailable Reason for Referral * Radiology Services Status Reason Specialty Diagnoses / Referred By Referred To Procedures Contact Contact No Auth Needed Radiology Diagnoses Abel Poe MD [address] Left renal mass [address] [place] [address] [place] [address] [place] [address] [place], [place] Phone: CONTRAST [phone] Phone: * Radiology Services Status Reason Specialty Diagnoses / Referred By Referred To Procedures Contact Contact No Auth Needed Radiology Diagnoses Abel Poe MD [address] Left renal mass [address] [place] [address] [place] [place] [facility] [place] [address] [address] [place], [place] Phone: CONTRAST [phone] Phone: * Radiology Services Status Reason Specialty Diagnoses / Referred By Referred To Procedures Contact Contact No Auth Needed Radiology Diagnoses Abel Poe MD [address] Left renal mass [address] [place] [address] [place] [address] [place] [address] CONTRAST [phone] Phone: * Radiology Services Status Reason Specialty Diagnoses / Referred By Referred To Procedures Contact Contact No Auth Needed Radiology Diagnoses Abel Poe MD [address] Left renal mass [address] [place] [address] [place] [address] [place] [address] CONTR[place] [phone] Phone: Reason for Visit * Radiology Services Status Reason Specialty Diagnoses / Referred By Referred To Procedures Contact Contact No Auth Needed Radiology Diagnoses Abel Poe MD [address] Left renal mass [address] [place] [address] [place] [place] [address] [place] [address] [address] [place], [place] Phone: CONTRAST [phone] Phone: Encounter Details Date Type Department Care Team Description 12/09/2017 Hospital [facility] Abel Poe MD Arrived Encounter [facility] Radiology [address] [place] [address] [place] [address] [place] [address] [phone] Social History Tobacco Use Types Packs/Day Years [...] of acetaminophen in 24 hours. cyanocobalamin (VITAMIN INJECT 1ML INTO THE 1 mL 3 10/02/2017 B-12, RUBRAMIN) 1,000 MUSCLE EVERY 30 DAYS mcg/mL injectionIndications: Medication monitoring encounter diphenhydrAMINE (BENADRYL Take 50 mg by mouth [...] mg every 6 hours as needed tabletIndications: Pain for Pain Indications: PAIN ondansetron (ZOFRAN ODT) Dissolve 1 tablet by 60 tablet 2 09/02/2017 8 mg rapid dissolve mouth twice daily. Place tabletIndications: on tongue to disolve. Chronic nausea, Chronic vomiting rOPINIRole (REQUIP) 4 mg Take 4 mg by mouth at tablet bedtime daily. hydrocortisone Insert or Apply 1 14 0 12/09/2017 12/13/2017 (ANUSOL-HC) 25 mg rectal suppository to rectal suppository suppositoryIndications: area as directed at Diarrhea, unspecified bedtime daily. type as of this encounter Plan of Treatment Date Type Specialty Care Team Description 12/09/2017 Procedure Pass Oncology 12/09/2017 Procedure Pass Oncology as of this encounter Results * POC CREATININE, RAD (12/09/2017 9:55 AM) Component Value Ref Range Creatinine, POC 0.8 0.4 - 1.00 MG/DL Specimen Performing Laboratory [facility] [address] [place] [address] * CT CHEST W CONTRAST (12/09/2017 9:55 [...] on 12/09/2017 11:22 AM. * CT ABDOMEN W CONTRAST (12/09/2017 9:55 [...] expressed in this report Finalized by Daniel Esocbar M.D. on 12/09/2017 12:28 PM. Dictated by Aidan Leone D.O. on 12/09/2017 11:22 AM. in this encounter Visit Diagnoses Diagnosis Left renal mass Unspecified disorder of kidney and ureter Administered Medications Medication Order MAR Action Action Date Dose Rate Site iohexol (OMNIPAQUE-350) 350 mg/mL Given 12/09/2017 80 mL injection 80 mL 11:00 CDT 80 mL, Intravenous, ONCE, 1 dose, 12/09/17 at 1100, NOTE: This is a HIGH ALERT Medication. sodium chloride PF 0.9% injection 50 mL Given 12/09/2017 50 mL 50 mL, Intravenous, ONCE, 1 dose, Mon 11:00 CDT 12/09/17 at 1100, Intra-procedure (IR) in this encounter
--- OUTSIDE RECORDS SUMMARY | 2017-12-18 01:29 | XMS REPORT | Encounter Summary ---
Author Author [facility] Organization [facility] Address Unknown Phone Unavailable Care Team Providers Care Car Repairer Name Role Phone Michael Sutton MD Unavailable Unavailable Mary Whittington MD PCP Jessica Valera Unavailable Maggie Puente Unavailable Unavailable Mary Telles BUSINESS INSTRUCTOR Unavailable Bam Ritter MD Unavailable Radha Bo PHARMACOGNOSIST Unavailable Unavailable Jose Sanchez MD Unavailable Reason for Visit * Reason Comments Abdominal pain Constipation Diarrhea Nausea Vomiting Encounter Details Date Type Department Care Team Description 12/09/2017 Office Visit [facility] Moraima KHOA Lopez Diarrhea, unspecified Physicians - Internal [address] type (Primary Dx); Medicine [place] [address] Epigastric pain; [address] [place] [address] Chronic pancreatitis, [place] [address] unspecified pancreatitis [phone] type (HCC); Nausea and vomiting, intractability of vomiting not specified, unspecified vomiting type Social History Tobacco Use Types Packs/Day Years [...] F) 12/09/2017 2:47 PM CDT Respiratory Rate - - Oxygen Saturation - - Inhaled Oxygen - - Concentration Weight 119.3 kg (263 lb) 12/09/2017 2:47 PM CDT Height 157.5 cm (5' 2") 12/09/2017 2:47 PM CDT Body Mass Index 48.1 12/09/2017 2:47 PM CDT in this encounter Functional Status Functional [...] Patient Instructions - Jessica Valera ARNP - 12/09/2017 3:30 PM CDT 1. For the rectal bleeding we will treat the hemorrhoids to see if it resolves. Use a suppository per rectum at bedtime for at least 7 days. Also, use Preparation-H cream to the outside of the rectum 2-3 times a day as well. Call if the bleeding persists. 2. For the nausea, continue Zofran three times a day. Call if symptoms worsen. 3. Turn in liquid stool for testing, call Radha if you have not heard from her about the results within 2 days. 4. I will discuss your plan of care with Dr. Nunez and call you later this week. Plan to see him in clinic for follow up in 3 months, call as needed in the meantime. Please call my nurse Radha if you have any questions or concerns. [phone]. in this encounter Progress Notes * Jessica Valera ARNP - 12/09/2017 3:30 PM CDT Formatting of this note may be different from the original. Subjective: History of Present Illness Jaylyn Delgado is a 32 y.o. female. Jaylyn is a very pleasant 32-year-old female who is an established patient of Dr. Nunez last seen on 06/03/17. She has a history of idiopathic chronic pancreatitis diagnosed with endoscopic ultrasound. She has seen Dr. Garcia in the past. She has undergone prior celiac plexus block with no improvement of her chronic upper abdominal pain. When she saw Dr. Nunez she reported [...] Dr. Nunez recommended trial of a gastroparesis diet , repeat EUS, surveillance colonoscopy, and lab work. [...] calcification seen in the pancreas head. She ended up having her colonoscopy performed by Dr. Daniel on 07/03/17 which showed grade II internal hemorrhoids and external hemorrhoids, no polyps seen. She also underwent incisional hernia repair with mesh from her previous left nephrectomy site by Dr. Daniel on 08/22/17. Since then, she has had abdominal fluid collection drained X 3. She is here today for follow-up office visit. Since I saw her in clinic on 09/02 she has been to cancer Center treatment in [place] regarding a left lung nodule. She is scheduled to go back there again early in December. She also had a repeat CT chest/abdomen CT today which shows a stable left lobe pulmonary or pleural nodule which is apparently unchanged from previous imaging. Dr. Poe/ nephrology who ordered a CT recommended repeat imaging in 6 months. She plans to discuss this recommendation with her [place] provider as well. Since I saw her in 08/2017 she has developed postprandial diarrhea with urgency starting in 10/2017. She has been on antibiotics several times since then. She reports watery bowel movements anytime she has something to eat or drink. Not taking Miralax since more issues with diarrhea now instead of constipation. She also notes bright red blood with wiping. She has mild cramping which improves with a bowel movement. Also some increased nausea. She continues to have the same issues with nausea vomiting, only slight improvement with taking scheduled Zofran 8 mg 3 times daily as previously recommended. Occasional chills but no fever. No hematemesis. She has somewhat tried a gastroparesis diet but even has these symptoms when she eats soup. She also has bloating. Her chronic epigastric pain is unchanged, does not get worse with food. As far as her nausea she has used scopolamine patch in the past with no improvement. She has tried Phenergan but vomits this back up. She has not tried Phenergan suppositories. She is rarely taking hydrocodone for pain. No dysphagia, odynophagia, pyrosis. No history of C. diff. She had lab with her PCP 1-2 weeks ago, results pending. Past medical history: 1. Changes of chronic pancreatitis on past endoscopic ultrasound. Most recent EUS 06/18/17 confirmed chronic pancreatitis. 2. 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, status post total abdominal hysterectomy and oophorectomy in November 2012. 3. Status post cholecystectomy (2006). 4. History of depression. 5. Significant weight gain. 6. Left nephrectomy (renal cell cancer) 03/2017. 7. GET 07/15/13 normal. 8. MRI head 07/15/13 normal. Family history:paternal great uncle pancreatic cancer; maternal grandfather "abdominal tumor"; mother with colon polyps; paternal great uncle colon cancer. Social history:no alcohol or tobacco use. Review of Systems Constitutional: Positive for activity change, appetite change and fatigue. Negative for chills, diaphoresis, fever and unexpected weight change. HENT: Positive for sneezing. Negative for mouth sores, sore throat, trouble swallowing and voice change. Eyes: Negative for pain and visual disturbance. Respiratory: Positive for shortness of breath. Negative for choking and chest tightness. Cardiovascular: Negative for chest pain. Gastrointestinal: Positive for abdominal distention, constipation, diarrhea, nausea and vomiting. Negative for abdominal pain, anal bleeding, blood in stool and rectal pain. Genitourinary: Negative for flank pain and pelvic pain. Musculoskeletal: Positive for back pain and neck pain. Negative for arthralgias. Skin: Positive for rash. Neurological: Positive for dizziness and headaches. Negative for light- headedness. Hematological: Negative for adenopathy. Psychiatric/Behavioral: The patient is nervous/anxious. All other systems reviewed and are negative. Objective: acetaminophen (TYLENOL) 500 mg tablet Take 1,000 mg by mouth every 6 hours as needed for Pain (patient does not take more than four per day). Max of 4,000 mg of acetaminophen in 24 hours. cyanocobalamin (VITAMIN B-12, RUBRAMIN) 1,000 mcg/mL injection INJECT 1ML INTO THE MUSCLE EVERY 30 DAYS diphenhydrAMINE (BENADRYL ALLERGY) 25 mg tablet Take [...] (ZOFRAN ODT) 8 mg rapid dissolve tablet Dissolve 1 tablet by mouth twice daily. Place on tongue to disolve. rOPINIRole (REQUIP) 4 mg tablet Take 4 mg by mouth at bedtime daily. Vitals: 12/09/17 1447 BP: 125/78 Pulse: 80 Temp: 36.4 C (97.6 F) TempSrc: Oral Weight: 119.3 kg (263 lb) Height: 157.5 cm (62") Body mass index is 48.1 kg/m. Results for JAYLYN DELGADO ( ) as of 12/09/2017 15:53 Ref. Range 12/09/2017 11:38 Sodium Latest Ref Range: 137 - 147 MMOL/L 134 (L) Potassium Latest Ref Range: 3.5 - 5.1 MMOL/L 3.6 Chloride Latest Ref Range: 98 - 110 MMOL/L 101 CO2 Latest Ref Range: 21 - 30 MMOL/L 26 Anion Gap Latest Ref Range: 3 - 12 7 Blood Urea Nitrogen Latest Ref Range: 7 - 25 MG/DL 11 Creatinine Latest Ref Range: 0.4 - 1.00 MG/DL 0.93 eGFR Non Latest Ref Range: >60 mL/min >60 eGFR Latest Ref Range: >60 mL/min >60 Glucose Latest Ref Range: 70 - 100 MG/DL 152 (H) Calcium Latest Ref Range: 8.5 - 10.6 MG/DL 8.7 CT CHEST AND ABDOMEN Clinical Indication: Female, [...] comparison CTs including the most recent dated 08/12/2017 CHEST FINDINGS: Lower Neck: Unremarkable Axilla, Mediastinum [...] left renal fossa mass or abdominal metastases. Physical Exam Constitutional: She is oriented to [...] is no rebound and no guarding. obese, mild/generalized tenderness, soft Musculoskeletal: Normal range of motion. She exhibits [...] vomiting, no weight loss. Currently taking Zofran 8 mg scheduled tid with mild improvement. Failed scopolamine patch in the past. GET and MRI brain normal in past. AM Cortisol normal in 2014. 2. Postprandial diarrhea for 1 month with BRB per rectum. + antibiotic use recently. No steatorrhea, fever, or chills. Also reports ongoing bloating. 3. Chronic pancreatitis based on endoscopic ultrasound 01/2015 and more recently 06/18/17. 4. Chronic epigastric pain, not meal related. Not improved with PPI, trigger point injections X 2, or pancreatic enzymes in the past. 5. History of intermittent constipation, well managed on Miralax bid in the past. Currently off Miralax due to diarrhea. 5. History of adenomatous colon polyps. Most recent colonoscopy 07/03/[address] Daniel - no polyps found. 6. Nonalcoholic steatosis with prior history of elevated LFTs. Most recent LFTs normal. 05/2017. 7. Status post left radical nephrectomy for renal cell cancer in March 2017. Repeat CT abdomen today - no sign of left renal fossa mass or abdominal mets. 8. Family history colon polyps and colon cancer. 9. Left lung mass, recently dx per patient. Repeat CT chest today and reviewed by Dr. Poe/Nephrology - unchanged LLL nodule - mets vs scarring. Per Dr. Poe - plans for repeat imaging 6 months. Patient seen at [facility] after 08/2017 OV, has follow up early December. 10. Vitamin D and B12 deficiency, on replacement. Pain: 1. It is unusual for her to have diarrhea. She also has a recent history of antibiotic use. Because of this, will order stool studies to check for infectious cause which will include C. difficile, culture, Giardia, Cryptosporidium, as well as fecal WBCs. We will call her with results. 2. Rectal bleeding she is having is most likely related to hemorrhoids as she was found to have external and internal hemorrhoids with her colonoscopy in 2017 done in [place]. Will treat internal hemorrhoids with Anusol HC suppository nightly for at least 7 days and treat external hemorrhoids with Preparation H [id number] 2-3 times a day. She is to call if the bleeding persists. 3. For the nausea, we will have her continue Zofran 8 mg 3 times daily. She will also continue to follow a gastroparesis diet. May need to consider Phenergan suppositories as needed if symptoms persist. 4. I will request her recent lab work by her PCP done 1-2 weeks ago for review. 5. She will follow-up at the [facility] in [place] early December as planned regarding the left lung nodule issue. 6. I will discuss any additional treatment options with Dr. Nunez and contact the patient. May need to see if can get Viokace covered to see if helpful for her abdominal pin. I have also asked her to see Dr. Nunez in clinic in 3 months, sooner if needed. Patient was advised of the plan and voiced agreement and understanding. Total face to face time spent with patient: 45 minutes with >50% of that time spent [...] Performing Laboratory Stool - Feces MAIN LAB [address] [place] [id number] * GIARDIA SCREEN,FECAL (12/11/2017) Specimen Performing Laboratory Feces MAIN LAB [address] [place] [id number] * CRYPTOSPORIDUM,FECAL (12/11/2017) Specimen Performing Laboratory Stool - Feces MAIN LAB [address] [place] [id number] * CULTURE-FECES W/SENSITIVITY (12/11/2017) Specimen Performing Laboratory Stool - Feces MAIN LAB [address] [place] [id number] * C DIFFICILE BY PCR (12/11/2017) Specimen Performing Laboratory Feces OTHER OUTSIDE LAB in this encounter Visit Diagnoses Diagnosis Diarrhea, unspecified type - Primary Epigastric pain Abdominal pain, epigastric Chronic pancreatitis, unspecified pancreatitis type (HCC) Nausea and vomiting, intractability of vomiting not specified, unspecified vomiting type
--- OUTSIDE RECORDS SUMMARY | 2017-12-18 01:29 | XMS REPORT | Encounter Summary ---
Author Author [facility] Organization [facility] Address Unknown Phone Unavailable Care Team Providers Care Breaker Unit Assembler Name Role Phone Michael Sutton MD Unavailable Unavailable Mary Whittington MD PCP Jessica Valera Unavailable Maggie Puente Unavailable Unavailable Mary Telles APRN Unavailable Bam Ritter MD Unavailable Radha Bo LPN Unavailable Unavailable Jose Sanchez MD Unavailable Reason for Visit * Reason Comments C Diff Positive C Diff Encounter Details Date Type Department Care Team Description 12/13/2017 Telephone [facility] Jessica Valera ARNP C Diff (Positive C Diff) Physicians [address] Ortho and Medical [place] [address] [place] [address] [address] [facility] [phone] [place] [address] Social History Tobacco Use Types [...] encounter Miscellaneous Notes * Telephone Encounter - Radha Bo LPN - 12/13/2017 2:19 PM CDT Spoke to pt. Relayed results and recommendations; pt verbalized understanding with no further questions at this time. Informed pt of importance for proper handwashing and cleaning with a 1:10 bleach solution, Jibestream message sent with additional information. Pt to call PRN and w/ progress report after finishing abx. * Telephone Encounter - Radha Bo LPN - 12/13/2017 11:39 AM CDT Attempted to contact pt. LVM to return call. * Telephone Encounter - Jessica Valera ARNP - 12/13/2017 11:35 AM CDT Due to her significant N/V called Luke/Pharmacist at [facility] to see if Vanco 125 mg qid for 10 days would be covered. He ran the rx, she can get this at no cost. Will have Radha call pt to let her know about + test and need for Vanco as well as infection precautions. Pt to call with progress report once done with tx, sooner if sx worsen. * Telephone Encounter - Radha Bo LPN - 12/13/2017 10:57 AM CDT Received fax from [facility] with Positive C Diff results 12/12/17. Routing to Jessica Valera and Dr. Nunez to advise on treatment. in this encounter Plan of Treatment Date Type Specialty Care Team Description 12/09/2017 Procedure Pass Oncology 12/09/2017 Procedure Pass Oncology as of this encounter Visit Diagnoses Not on filein this encounter
--- OUTSIDE RECORDS SUMMARY | 2017-12-18 01:29 | XMS REPORT | Encounter Summary ---
Author Author [facility] Organization [facility] Address Unknown Phone Unavailable Care Team Providers Care Power Chisel Operator Name Role Phone Michael Sutton MD Unavailable Unavailable Mary Whittington MD PCP Jessica Valera Unavailable Maggie Puente Unavailable Unavailable Mary Telles APRN Unavailable Bam Ritter MD Unavailable Radha Bo LPN Unavailable Unavailable Jose Sanchez MD Unavailable Encounter Details Date Type Department Care Team Description 12/10/2017 Ancillary Rad Outpatient, Radiologist Diagnosis unknown Orders [address] [place] [address] Social History Tobacco Use Types [...] as of this encounter Results * CT ABDOMEN EXTERNAL IMAGING (11/12/2017) Narrative This order has been auto finalized and does not contain a result. * CT ABD/PEL EXTERNAL IMAGING (11/11/2017) Narrative This order has been auto finalized and does not contain a result. in this encounter Visit Diagnoses Diagnosis Diagnosis unknown Other unknown and unspecified cause of morbidity or mortality
--- OUTSIDE RECORDS SUMMARY | 2017-12-18 01:29 | XMS REPORT | Encounter Summary ---
Author Author [facility] Organization [facility] Address Unknown Phone Unavailable Care Team Providers Care Name Plate Stamping Machine Operator Name Role Phone Michael Sutton MD Unavailable Unavailable Mary Whittington MD PCP Jessica Valera Unavailable Maggie Puente Unavailable Unavailable Mary Telles APRN Unavailable Bam Ritter MD Unavailable Radha Bo LPN Unavailable Unavailable Jose Sanchez MD Unavailable Reason for Visit * Reason Comments Other plan of care Encounter Details Date Type Department Care Team Description 12/11/2017 Telephone [facility] Jessica Valera ARNP Other (plan of care) Physicians [address] Ortho and Medical [place] [address] [place] [address] [address] [phone] [place] [address] Social History Tobacco Use Types [...] Telephone Encounter - Radha Bo LPN - 12/11/2017 9:19 AM CDT Rx sent to pt preferred pharmacy. * Telephone Encounter - Moraima JessicaKHOA nickerson - 12/11/2017 9:05 AM CDT Discussed plan of care with Dr. Nunez. He agreed with stool studies and hemorrhoid treatment recommended at OV 12/09/17. For her upper abdominal pain will retry Viokace 3 with meals, 2 with snacks, (20,880 units - 30 days with 5 refills) to see if covered now by her insurance since she failed Creon and Zenpep. Dr. Nunez also agreed [facility] re: pulmonary nodule. Called pt, she agrees with plan. in this encounter Plan of Treatment Date Type Specialty Care Team Description 12/09/2017 Procedure Pass Oncology 12/09/2017 Procedure Pass Oncology as of this encounter Visit Diagnoses Not on filein this encounter
--- OUTSIDE RECORDS SUMMARY | 2017-12-18 01:29 | XMS REPORT | Encounter Summary ---
Author Author [facility] Organization [facility] Address Unknown Phone Unavailable Care Team Providers Care Circulation Worker Name Role Phone Michael Sutton MD Unavailable Unavailable Mary Whittington MD PCP Jessica Valera Unavailable Maggie Puetne Unavailable Unavailable Mary Telles APRN Unavailable Bam Ritter MD Unavailable Camron Bo LPN Unavailable Unavailable Jose Sanchez MD Unavailable Reason for Visit * Reason Comments Prior Authorization Hydrocortisone rectal suppository 25mg Encounter Details Date Type Department Care Team Description 12/10/2017 Telephone [facility] Jessica Valera ARNP Prior Authorization Physicians - Internal [address] (Hydrocortisone rectal Medicine [place] 1023 suppository 25mg ) [address] [place] [address] [place] [address] Social History Tobacco Use Types [...] as of this encounter Miscellaneous Notes * Addendum Note - Camron Bo LPN - 12/13/2017 10:27 AM CDT Addended by: CAMRON BO on: 12/13/2017 10:27 AM Modules accepted: Orders * Addendum Note - Silvia Hunt - 12/12/2017 11:28 AM CDT Addended by: SILVIA HUNT on: 12/12/2017 11:28 AM Modules accepted: Orders * Telephone Encounter - Silvia Hunt - 12/12/2017 11:13 AM CDT Formatting of this note may be different from the original. Contacted pt on information below. Pt verbalized understanding. Rx send to pharmacy. Per pt, bleeding is actually getting worse. Per pt, bleeding is the amount of a "golf ball" on total amount of toilet paper used. Pt reports the blood is bright red and it is not in clot form. Pt also reports constant RLQ pain including same pain while having BM. Pt also reports nausea. Pt stated she is seeing her PCP in [place], [place] today and will call back office after to visit to report. [facility] sent to Camron Bo LPN 22 hours ago (1:05 PM) She can try OTC hydrocortisone cream and use applicator to apply inside the rectum, bid-tid for 1 week if able to see if helpful for bleeding. (Routing comment) * Telephone Encounter - Mary Caceres - 12/10/2017 4:11 PM CDT Initiated a prior authorization for Hydrocortisone rectal suppository via fax and it was denied. Per telephone services sales representative alternative medication that is covered is Hydrocortisone ointment 0.1% or filing a appeal via fax is also possible. A form was faxed to our office and it is available upon request. in this encounter Plan of Treatment Date Type Specialty Care Team Description 12/09/2017 Procedure Pass Oncology 12/09/2017 Procedure Pass Oncology as of this encounter Visit Diagnoses Not on filein this encounter
--- OUTSIDE RECORDS SUMMARY | 2017-12-18 01:29 | XMS REPORT | Encounter Summary ---
Author Author [facility] Organization [facility] Address Unknown Phone Unavailable Care Team Providers Care Commercial Retoucher Name Role Phone Michael Sutton MD Unavailable Unavailable Mary Whittington MD PCP Jessica Valera Unavailable Maggie Puente Unavailable Unavailable Mary Telles INSPECTOR MOTOR VEHICLES Unavailable Bam Ritter MD Unavailable Radha Bo LPN Unavailable Unavailable Jose Sanchez MD Unavailable Reason for Visit * Reason Comments Prior Authorization Viokace Encounter Details Date Type Department Care Team Description 12/13/2017 Telephone [facility] Jessica Valera ARNP Prior Authorization Physicians [address] (Viokace ) Ortho and Medical [place] [address] [place] [address] [phone] [place] [address] Social History Tobacco Use Types [...] encounter Miscellaneous Notes * Telephone Encounter - Senait Jarquin - 12/13/2017 10:42 AM CDT Completed PA for medication Viokace diagnosis chronic pancreatitis through [employer] guillermo code [id number], waiting for approval or denial in this encounter Plan of Treatment Date Type Specialty Care Team Description 12/09/2017 Procedure Pass Oncology 12/09/2017 Procedure Pass Oncology as of this encounter Visit Diagnoses Not on filein this encounter
--- OUTSIDE RECORDS SUMMARY | 2017-12-18 01:29 | XMS REPORT | Encounter Summary ---
Author Author [facility] Organization [facility] Address Unknown Phone Unavailable Care Team Providers Care Sack Repairer Name Role Phone Michael Sutton MD Unavailable Unavailable Mary Whittington MD PCP Jessica Valera Unavailable Maggie Puente Unavailable Unavailable Mary Telles AEROSPACE ENGINEER OFFICER ARMAMENT Unavailable Bam Ritter MD Unavailable Radha Bo CONDUIT HELPER Unavailable Unavailable Jose Sanchez MD Unavailable Reason for Referral * Radiology Services Status Reason Specialty Diagnoses / Referred By Referred To Procedures Contact Contact New Request Radiology Diagnoses Abel Poe MD Left renal mass [address] [place] [address] ABDOMEN WO/W [place], [place] [address] * Radiology Services Status Reason Specialty Diagnoses / Referred By Referred To Procedures Contact Contact New Request Radiology Diagnoses Abel Poe MD Left renal mass [address] [place] [address] CHEST WO/W [place], [place] [address] Reason for Visit * Reason Comments Heme/Onc Care Encounter Details Date Type Department Care Team Description 12/09/2017 Office Visit [facility] Abel Poe MD Left renal mass ([facility] Exam [address] Dx) [address] [place] [address] [place] [address] [phone] Social History Tobacco Use Types Packs/Day Years Used Date Never Smoker Smokeless Tobacco: Never Used Alcohol Use Drinks/Week oz/Week Comments No Sex Assigned at Date Recorded Not on file as of this encounter Last Filed Vital Signs Vital Sign Reading Time Taken Blood Pressure 140/71 12/09/2017 1:24 PM CDT Pulse 87 12/09/2017 1:24 PM CDT Temperature 36.6 C (97.9 F) 12/09/2017 1:24 PM CDT Respiratory Rate 20 12/09/2017 1:24 PM CDT Oxygen Saturation 99% 12/09/2017 1:24 PM CDT Inhaled Oxygen - - Concentration Weight 121 kg (266 lb 12.8 oz) 12/09/2017 1:24 PM CDT Height 157.5 cm (5' 2") 12/09/2017 1:24 PM CDT Body Mass Index 48.8 12/09/2017 1:24 PM CDT in this encounter Functional Status [...] as of this encounter Progress Notes * Abel Poe MD - 12/09/2017 1:45 PM CDT Formatting of this note may be different from the original. Name: Janeth Rajput : 1985 AGE: 32 y.o. DATE OF SERVICE: 12/09/2017 Subjective: Reason for Visit: Heme/Onc Care Janeth Rajput is a 32 y.o. female. Cancer Staging No matching staging information was found for the patient. History of Present Illness History of Present Illness Trouble voiding. +Pain, "charley horse", can't wear pants. Wearing a binder, having pain without it. Was told she might have a hernia. +suppository and exlax to have BM Pushing to have BM's Not every day No narcotic pain medications +Chills, nausea No fevers Was told her pancreatic enzymes are elevated Acknowledges that stress/nervousness causes a lot of her symptoms 12/09/2017: Since our last visit, patient has had open incisional hernia repair close to home. Has had multiple fluid collections drained after hernia repair and then drain was placed, then it was accidentally removed. Been draining yellow, dark brown, red bloody fluid. Has not had a drain for about 1 month. + chills, nausea. Patient is seeing Dr. Nuñez for chronic GI issues. Currently having right back pain, chest pain. Patient was told she has a left lower lung base lesion which has been persistent since at least 08/2016 per the outside radiology read. This has been stable for several months per our radiology report. PMHx: Past Medical History: Diagnosis Date Abdominal pain, chronic, epigastric Acute pancreatitis Of unclear etiology Asthma Biliary dyskinesia Colon polyp History of inflamed juvenile polyp versus adenoma Constipation Hematochezia Major depressive disorder With prior suicide attempts Meningitis At age 3 months old Morbid obesity (HCC) Nausea and vomiting Intermittent, normal gastric emptying study Ovarian cyst Pancreatitis EUS showing changes of chronic pancreatitis Renal cancer, left (HCC) RLS (restless legs syndrome) Trichotillomania Vitamin D deficiency Weight gain Unintentional significant SurgHx: Past Surgical History: Procedure Laterality Date CHOLECYSTECTOMY 06/2005 UPPER GASTROINTESTINAL ENDOSCOPY 04/2009 LIPOMA RESECTION 06/2009 Abdominal wall lipoma removal COLONOSCOPY 01/2010 TRIGGER POINT INJECTION (1-2 MUSCLE GROUPS) 03/2010 Epigastric region with bupivacaine HX HYSTERECTOMY total NEPHRECTOMY Left 04/10/2017 NEPHRECTOMY LAPAROSCOPY performed by Abel Poe MD at [facility]/Periop CELIAC PLEXUS BLOCK HX KNEE SURGERY , removal of "extra bone" HX TONSILLECTOMY Allergies: Allergies Allergen Reactions Penicillins UNKNOWN Demerol (Pf) [Meperidine (Pf)] ITCHING Fentanyl ITCHING SocHx: Social History Social History Marital status: Single Spouse name: N/A Number of children: N/A Years of education: N/A Occupational History Disabled Social History Main Topics Smoking status: Never Smoker Smokeless tobacco: Never Used Alcohol use No Drug use: No Sexual activity: Not on file Other Topics Concern Not on file Social History Narrative No narrative on file FamHx: Family History Problem Relation Age of Onset Hypertension Father Diabetes Father Cancer-Ovarian Mother Cancer Mother Cervix Arthritis-rheumatoid Mother Hypertension Mother Cancer-Ovarian Maternal Grandmother Cancer Maternal Grandmother Cervix Cancer-Colon Maternal Grandfather Heart Disease Other Review of Systems +activity and appetite change, chills, fatigue, sneezing, sore throat, voice change, SOA, abdominal pain, anal bleeding, constipation, diarrhea, nausea, rectal pain, vomiting, back/neck pain, dizziness, MEJIA, numbness, adenopathy Rest of comprehensive ROS is negative Objective: acetaminophen (TYLENOL) 500 mg tablet Take [...] iron) tablet Take 1 tablet by mouth twice daily for 120 days. Take with 8 [...] twice daily. Place on tongue to disolve. polyethylene glycol 3350 (MIRALAX) 17 g packet Take 1 packet by mouth daily. Indications: CONSTIPATION rOPINIRole (REQUIP) 4 mg tablet Take 4 mg by mouth at bedtime daily. senna/docusate (SENOKOT-S) 8.6/50 mg tablet Take 1 tablet by mouth twice daily. Indications: CONSTIPATION Vitals: 12/09/17 1305 12/09/17 1324 BP: 140/71 Pulse: 87 Resp: 20 Temp: 36.6 C (97.9 F) TempSrc: Oral SpO2: 99% Weight: 121 kg (266 lb 12.8 oz) Height: (P) 157.5 cm (62") 157.5 cm (62") Body mass index is 48.8 kg/m. Pain Score: Four Pain Loc: (Left side) Pain Addressed: N/A Patient Evaluated for a Clinical Trial: No treatment clinical trial available for this patient. Eastern Cooperative Oncology Group performance status is 1, Restricted in physically strenuous activity but ambulatory and able to carry out work of a light or sedentary nature, e.g., light house work, office work. Physical Exam alert in NAD Breathing unlabored Neuro grossly intact Abdomen obese Incision is CDI, no obvious induration/erythema/fluctuance CHEST: 1. Compromised exam due to respiratory [...] Aidan Leone D.O. on 12/09/2017 11:22 AM. Assessment and Plan: I reviewed the patient's imaging and reports. Given her small T1a RCC treated with lap radical nephrectomy, likelihood of metastatic disease is low. Will continue to follow her lung lesion with repeat imaging in [address] chest /abdomen. If there is any growth/change, will consider biopsy in the future. No imaging modalities would further delineate at this time. Patient will see Dr. Nuñez today for further evaluation of her GI symptoms. She has received her binder since our last visit. She will continue to follow with her general surgeon if necessary. There is a small fluid collection seen on CT from today, will leave to general surgeon for management. 15 minutes was spent face to face of which the majority was counseling and coordinating care in this encounter Plan of Treatment Date Type Specialty Care Team Description 12/09/2017 Procedure Pass Oncology 12/09/2017 Procedure Pass Oncology Name Priority Associated Diagnoses Order Schedule CT CHEST WO/W CONTRAST Routine Left renal mass Expected: 06/09/2018 (Approximate), Expires: 12/09/2018 CT ABDOMEN WO/W CONTRAST Routine Left renal mass Expected: 06/09/2018 (Approximate), Expires: 12/09/2018 as of this encounter Visit Diagnoses Diagnosis Left renal mass - Primary Unspecified disorder of kidney and ureter
--- OUTSIDE RECORDS SUMMARY | 2017-12-18 01:29 | XMS REPORT | Encounter Summary ---
Author Author [facility] Organization [facility] Address Unknown Phone Unavailable Care Team Providers Care Traffic Signal Supervisor Maintenance Name Role Phone Michael Sutton MD Unavailable Unavailable Mary Whittington MD PCP Jessica Valera Unavailable Maggie Puente Unavailable Unavailable Mary Telles APRN Unavailable Bam Ritter MD Unavailable Radha Bo LPN Unavailable Unavailable Jose Sanchez MD Unavailable Encounter Details Date Type Department Care Team Description 12/10/2017 Ancillary Rad Outpatient, Radiologist Orders [address] [place] [address] Social History Tobacco Use Types [...]
--- OUTSIDE RECORDS SUMMARY | 2017-12-18 01:29 | XMS REPORT | Encounter Summary ---
Author Author [facility] Organization [facility] Address Unknown Phone Unavailable Care Team Providers Care Fruit Or Nut Farmer Name Role Phone Michael Sutton MD Unavailable Unavailable Mary Whittington MD PCP Jessica Valera Unavailable Maggie Puente Unavailable Unavailable Mary Telles APRN Unavailable Bam Ritter MD Unavailable Radha Bo SUPERVISOR TELLERS Unavailable Unavailable Jose Sanchez MD Unavailable Encounter Details Date Type Department Care Team Description 05/06/2017 Procedure Pass [facility] [address] [place] [address] Social History Tobacco Use Types Packs/Day Years Used Date Never Smoker Smokeless Tobacco: Never Used Alcohol Use Drinks/Week oz/Week Comments No Sex Assigned at Date Recorded Not on file as of this encounter Last Filed Vital Signs Vital Sign Reading Time Taken Blood Pressure - - Pulse - - Temperature - - Respiratory Rate - - Oxygen Saturation - - Inhaled Oxygen - - Concentration Weight 116.1 kg (256 lb) 12/09/2017 9:36 AM CDT Height 157.5 cm (5' 2") 12/09/2017 9:36 AM CDT Body Mass Index 46.82 12/09/2017 9:36 AM CDT in this encounter Functional Status Functional Status Response Date of Assessment Does the patient have a hearing impairment: No 04/10/2017 as of this encounter Plan of Treatment Date Type Specialty Care Team Description 12/09/2017 Procedure Pass Oncology 12/09/2017 Procedure Pass Oncology as of this encounter Visit Diagnoses Not on filein this encounter
--- OUTSIDE RECORDS SUMMARY | 2017-12-18 01:30 | XMS REPORT | Encounter Summary ---
Author Author [facility] Organization [facility] Address Unknown Phone Unavailable Care Team Providers Care Hand I Tube Bender Name Role Phone Michael Sutton MD Unavailable Unavailable Mary Whittington MD PCP Jessica Valera Unavailable Maggie Puente Unavailable Unavailable Mary Telles APRN Unavailable aBm Ritter MD Unavailable Radha Bo LPN Unavailable Unavailable Jose Sanchez MD Unavailable Reason for Visit * Reason Comments Results Encounter Details Date Type Department Care Team Description 10/31/2017 Telephone [facility] UROLOG[facility] Abel Poe MD Results [address] [place] [address] Social History Tobacco Use Types [...] MD in this encounter Plan of Treatment Date Type Specialty Care Team Description 12/09/2017 Procedure Pass Oncology 12/09/2017 Procedure Pass Oncology as of this encounter Visit Diagnoses Not on filein this encounter
--- OUTSIDE RECORDS SUMMARY | 2017-12-18 01:30 | XMS REPORT | Encounter Summary ---
Author Author [facility] Organization [facility] Address Unknown Phone Unavailable Care Team Providers Care Gas Charger Name Role Phone Michael Sutton MD Unavailable Unavailable Mary Whittington MD PCP Jessica Valera Unavailable Maggie Puente Unavailable Unavailable Mary Telles MAKEUP INSTRUCTOR Unavailable Bam Ritter MD Unavailable Radha Bo OPHTHALMIC ASST Unavailable Unavailable Jose Sanchez MD Unavailable Reason for Visit * Radiology Services Status Reason Specialty Diagnoses / Referred By Referred To Procedures Contact Contact No Auth Needed Radiology Diagnoses Abel Poe MD Ww Ct Left renal mass [address] [place] [address] [place] [address] [place] [address] Phone: Encounter Details Date Type Department Care Team Description 11/08/2017 Hospital [facility] Abel Poe MD Canceled (Other) Encounter [facility] [address] [place] [address] [place] [address] [phone] Social History Tobacco Use Types Packs/Day Years [...] 1 tablet by mouth 60 tablet 3 09/05/2017 12/09/2017 (FERROUS SULFATE)) 325 mg twice daily for 120 days. (65 mg iron) Take with 8 ounces of tabletIndications: orange juice Medication monitoring encounter polyethylene glycol 3350 Take 1 packet by mouth 12 each 5 04/11/2017 12/09/2017 (MIRALAX) 17 g daily. Indications: packetIndications: CONSTIPATION constipation senna/docusate Take 1 tablet by mouth 15 tablet 0 04/11/20172017 (SENOKOT-S) 8.6/50 mg twice daily. Indications: tabletIndications: CONSTIPATION constipation as of this encounter Progress Notes * Nacho Jane RN - 11/06/2017 12:18 PM CDT A voicemail message was left by this RN asking the patient to call [facility] nurse's desk to acknowledge the appointment date and time , NPO requirements, and other applicable instructions related to the imaging appointment. in this encounter Plan of Treatment Date Type Specialty Care Team Description 12/09/2017 Procedure Pass Oncology 12/09/2017 Procedure Pass Oncology as of this encounter Visit Diagnoses Not on filein this encounter
--- OUTSIDE RECORDS SUMMARY | 2017-12-18 01:30 | XMS REPORT | Encounter Summary ---
Author Author [facility] Organization [facility] Address Unknown Phone Unavailable Care Team Providers Care Relief Mate Name Role Phone Michael Sutton MD Unavailable Unavailable Mary Whittington MD PCP Jessica Valera Unavailable Maggie Puente Unavailable Unavailable Mary Telles APRN Unavailable Bam Ritter MD Unavailable Radha Bo LPN Unavailable Unavailable Jose Sanchez MD Unavailable Reason for Visit * Reason Comments Medication Refill Encounter Details Date Type Department Care Team Description 10/01/2017 Refill [facility] Randy Nunez MD Medication monitoring Physicians - Internal [address] [place] [address] encounter Medicine [place] [address] [place] [address] [place] [address] Social History Tobacco Use [...]
--- OUTSIDE RECORDS SUMMARY | 2017-12-18 01:30 | XMS REPORT | Encounter Summary ---
Author Author [facility] Organization [facility] Address Unknown Phone Unavailable Care Team Providers Care Drive Away Driver Name Role Phone Michael Sutton MD Unavailable Unavailable Mary Whittington MD PCP Jessica Valera Unavailable Maggie Puente Unavailable Unavailable Mary Telles APRN Unavailable Bam Ritter MD Unavailable Radha Bo LPN Unavailable Unavailable Jose Sanchez MD Unavailable Encounter Details Date Type Department Care Team Description 10/22/2017 Hospital [facility] Radiology [address] [facility] [address] [place] [address] Social History Tobacco Use Types [...]
--- OUTSIDE RECORDS SUMMARY | 2017-12-18 01:30 | XMS REPORT | Encounter Summary ---
Author Author [facility] Organization [facility] Address Unknown Phone Unavailable Care Team Providers Care Jingle Writer Name Role Phone Michael Sutton MD Unavailable Unavailable Mary Whittington MD PCP Jessica Valera Unavailable Maggie Puente Unavailable Unavailable Mary Telles APRN Unavailable Bam Ritter MD Unavailable Radha Bo LPN Unavailable Unavailable Jose Sanchez MD Unavailable Encounter Details Date Type Department Care Team Description 11/12/2017 Hospital [facility] Radiology [address] [facility] [address] [place] [address] Social History Tobacco Use Types [...]
--- OUTSIDE RECORDS SUMMARY | 2017-12-18 01:30 | XMS REPORT | Encounter Summary ---
Author Author [facility] Organization [facility] Address Unknown Phone Unavailable Care Team Providers Care Structural Rigger Name Role Phone Michael Sutton MD Unavailable Unavailable Mary Whittington MD PCP Jessica Valera Unavailable Maggie Puente Unavailable Unavailable Mary Telles APRN Unavailable Bam Ritter MD Unavailable Radha Bo LPN Unavailable Unavailable Jose Sanchez MD Unavailable Encounter Details Date Type Department Care Team Description 11/11/2017 Hospital [facility] Radiology [address] [facility] [address] [place] [address] Social History Tobacco Use Types [...] encounter Results * CT ABD/PEL EXTERNAL IMAGING (11/11/2017) Narrative This order has been auto finalized and does not contain a result. in this encounter Visit Diagnoses Diagnosis Diagnosis unknown Other unknown and unspecified cause of morbidity or mortality
--- OUTSIDE RECORDS SUMMARY | 2017-12-18 01:30 | XMS REPORT | Encounter Summary ---
Author Author [facility] Organization [facility] Address Unknown Phone Unavailable Care Team Providers Care Belt Loop Maker Name Role Phone Michael Sutton MD Unavailable Unavailable Mary Whittington MD PCP Jessica Valera Unavailable Maggie Puente Unavailable Unavailable Mary Telles APRN Unavailable Bam Ritter MD Unavailable Radha Bo LPN Unavailable Unavailable Jose Sanchez MD Unavailable Encounter Details Date Type Department Care Team Description 10/01/2017 Hospital [facility] Radiology [address] [facility] [address] [place] [address] Social History Tobacco Use Types [...] Oncology as of this encounter Results * US ABDOMEN EXTERNAL IMAGING (10/01/2017) Narrative This order has been auto finalized and does not contain a result. in this encounter Visit Diagnoses Diagnosis Diagnosis unknown Other unknown and unspecified cause of morbidity or mortality
--- OUTSIDE RECORDS SUMMARY | 2017-12-18 01:30 | XMS REPORT | Encounter Summary ---
Author Author [facility] Organization [facility] Address Unknown Phone Unavailable Care Team Providers Care Roll Mechanic Name Role Phone Michael Sutton MD Unavailable Unavailable Mary Whittington MD PCP Jessica Valera Unavailable Maggie Puente Unavailable Unavailable Mary Telles APRN Unavailable Bam Ritter MD Unavailable Radha Bo LPN Unavailable Unavailable Jose Sanchez MD Unavailable Reason for Visit * Reason Comments Other Encounter Details Date Type Department Care Team Description 12/04/2017 Telephone [facility] Randy Nunez MD Other Physicians - Internal [address] [facility] Medicine [place] [address] [place] [address] [place] [address] Social History Tobacco Use Types [...] Telephone Encounter - Arleen Leone RN - 12/04/2017 4:50 PM CDT Message from patient to call back without reason for call today. Attempt to call back and only able to leave message regarding attempt. in this encounter Plan of Treatment Date Type Specialty Care Team Description 12/09/2017 Procedure Pass Oncology 12/09/2017 Procedure Pass Oncology as of this encounter Visit Diagnoses Not on filein this encounter
--- OUTSIDE RECORDS SUMMARY | 2017-12-18 01:31 | XMS REPORT ---
Author Author BHUPENDRA Ford Organization [facility] Address [address] [place] [address] Care Team Providers Care Public Health Professor Name Role Phone BHUPENDRA Ford Unavailable PROBLEMS Type Condition ICD9-CM Code [id number] Code Onset Dates Condition Status SNOMED Code Problem Asthma J45.909 Active 320533492 Problem Atelectasis J98.11 Active 22793992 Problem Polydipsia R63.1 Active 26367936 Problem Chronic fatigue R53.82 Active 96286861 Problem Moderate episode of recurrent major depressive disorder F33.1 Active 971199699 Problem Generalized social phobia F40.11 Active 79203643 Problem Trichotillomania F63.3 Active 06161858 Problem Restless leg syndrome G25.81 Active 20293798 Problem Chronic post-traumatic stress disorder (PTSD) F43.12 Active 137583491 Problem History of renal cell carcinoma Z85.528 Active 742109104 Problem Nodule of left lung R91.1 Active 557867571 Problem Chronic tension-type headache, intractable G44.221 Active 302877265 Problem Hyperlipidemia, mixed E78.2 Active 817565175 Problem Hirsuties L68.0 Active 788814259 Problem Morbid (severe) obesity due to excess calories E66.01 Active 909561316 Problem FH: polycystic ovary Z84.2 Active 678451612 Problem Chronic pancreatitis K86.1 Active 947391801 ALLERGIES No Information ENCOUNTERS Encounter Location Date Diagnosis [facility] [id number], [place] [address] Feb, [facility] [address], [place] [address] Dec, [facility] [id number], [place] [address] 3[address] Nov, [facility] [id number] [place] [address] 89521- 2116 Nov, Medicare annual wellness visit, initial Z00.00 ; Morbid ( severe) obesity due to excess calories E66.01 ; Moderate episode of recurrent major depressive disorder F33.1 ; Chronic post-traumatic stress disorder (PTSD) F43.12 ; Generalized social phobia F40.11 ; Chronic fatigue R53.82 ; Restless leg syndrome G25.81 ; Asthma J45.909 ; Chronic pancreatitis K86.1 ; Hyperlipidemia, mixed E78.2 ; Hirsuties L68.0 ; BMI 45.0-49.9, adult Z68.42 and Encounter for immunization Z23 [address] [address] October, [place] [id number] [place] [address] 24045- 4986 October, Nodule of left lung R91.1 [place] [id number] [place] [address] 72846- 5505 October, Nodule of left lung R91.1 [address] [id number] [place] [address] 94647- 1305 October, Recurrent major depressive disorder, in partial remission F33.41 ; Restless leg syndrome G25.81 ; Generalized social phobia F40.11 ; Chronic post-traumatic stress disorder (PTSD) F43.12 ; BMI 45.0-49.9, adult Z68.42 and Trichotillomania F63.3 [place] [id number] [place] [address] 53124- 0602 October, [address] [place] [id number] [place] [address] 06239- 6653 Sep, Chronic fatigue R53.82 and BMI 45.0-49.9, adult Z68.42 [address] [id number] [place] [address] 49503- 0992 Aug, [address] [address]- 9833 Jul, Restless leg syndrome G25.81 and B12 deficiency E53.8 [place] [id number] [place] [address] 40800- 1386 Jul, [facility] [id number] [place] [address] 11068- 5576 Jul, [place] [id number] [place] [address] 09961- 9152 Jun, [place] [id number] [place] [address] 80222- 3945 Jun, Fatigue, unspecified type R53.83 ; History of renal cell carcinoma Z85.528 ; Chronic pancreatitis K86.1 ; Restless leg syndrome G25.81 ; Dark urine R82.99 and BMI 45.0-49.9, adult Z68.42 [place] [id number] [place] [address] 41019- 3325 Jun, [place] [id number] [place] [address] 00232- 6761 Jun, [place] [id number] [place] [address] 28882- 4712 Jun, [place] [id number] [place] [address] 38299- 0205 Jun, [place] [id number] [place] [address] 75003- 9387 May, Chronic post-traumatic stress disorder (PTSD) F43.12 ; Moderate episode of recurrent major depressive disorder F33.1 ; Trichotillomania F63.3 and Generalized social phobia F40.11 [place] [id number] [place] [address] 50655- 0356 May, [place] [address] [place] [address] 14380- 1472 May, Chronic post-traumatic stress disorder (PTSD) F43.12 ; Moderate episode of recurrent major depressive disorder F33.1 ; Trichotillomania F63.3 and Generalized social phobia F40.11 [place] [address] [place] [address] 17193- 8118 May, Hyperlipidemia, mixed E78.2 ; Morbid (severe) obesity due to excess calories E66.01 ; Chronic post-traumatic stress disorder (PTSD) F43.12 ; Moderate episode of recurrent major depressive disorder F33.1 ; Trichotillomania F63.3 and Generalized social phobia F40.11 [place] [id number] [place] [address] 03131- 7681 30 Apr, 2017 [place] [id number] [place] [address] 39488- 9686 29 Apr, 2017 Hyperlipidemia, mixed E78.2 ; Morbid (severe) obesity due to excess calories E66.01 ; Chronic post-traumatic stress disorder (PTSD) F43.12 ; Moderate episode of recurrent major depressive disorder F33.1 ; Trichotillomania F63.3 and Generalized social phobia F40.11 [place] [address], [place] [address]- 0[address] Apr, Trichotillomania F63.3 ; Generalized social phobia F40.11 ; Chronic post-traumatic stress disorder (PTSD) F43.12 and Moderate episode of recurrent major depressive disorder F33.1 [place] [address], [place] [address]- 2227 Apr, [place] [address] [address]- 1573 Apr, [place] [address] [place] [address] 88338- 1657 Mar, Moderate episode of recurrent major depressive disorder F33.1 ; Trichotillomania F63.3 ; Chronic post-traumatic stress disorder (PTSD) F43.12 ; Generalized social phobia F40.11 and Restless leg syndrome G25.81 [place] [id number] [place] [address] 83985- 9528 Mar, [facility] [id number] [place] [address] 57432- 4312 Mar, [facility] [id number] [place] [address] 886346- 8910 Feb, Left kidney mass N28.89 [facility] [id number] [place] [address] 69056- 5795 Jan, [facility] [id number] [place] [address] 02465- 7340 Dec, Polydipsia R63.1 ; Chronic pancreatitis K86.1 and Fatigue, unspecified type R53.83 [facility] [id number] [place] [address] 35662- 9008 Nov, [facility] [id number] [place] [address] 58716- 1692 Nov, [facility] [id number] [place] [address] 29976- 4479 Nov, Headache around the eyes R51 [facility] [id number] [place] [address] 55872- 3070 Nov, [facility] [address] [place] [address] 41931- 0784 October, STD exposure Z20.2 [facility] [id number] [place] [address] 62673- 5512 October, STD exposure Z20.2 [facility] [address], [place] [address]- 7459 October, Chronic post-traumatic stress disorder (PTSD) F43.12 ; Generalized social phobia F40.11 ; Trichotillomania F63.3 and Restless leg syndrome G25.81 [facility] [address], [place] [address]- 8588 October, [facility] [address], [place] [address]- 0604 Sep, [place] [id number] [place] [address] 02979- 3687 Aug, [place] [id number] [place] [address] 63449- 5500 Aug, [place] [id number] [place] [address] 74261- 9839 Aug, Neck mass R22.1 [place] [id number] [place] [address] 93633- 1603 Aug, Atelectasis J98.11 [place] [id number] [place] [address] 99379- 5751 28 Jul, 2016 Hyperlipidemia, mixed E78.2 ; Atypical pneumonia J18.9 and Neck mass R22.1 [address] [id number] [place] [address] 68519- 9716 15 Jul, 2016 Hemoptysis R04.2 [place] [id number] [place] [address] 28596- 4446 08 Jul, 2016 Acute non-recurrent pansinusitis J01.40 ; Hemoptysis R04.2 ; Polydipsia R63.1 and Malaise R53.81 [facility] [id number] [place] [address] 16881 -4254 May, Other viral agents as the cause of diseases classified elsewhere B97.89 and Acute upper respiratory infection, unspecified J06.9 [facility] [address] [place] [id number] [place] [address] 39979 -8915 Mar, Nausea R11.0 [facility] [id number] [place] [address] 49203 -0745 28 Dec, 2015 Hives L50.9 [address] [id number] [place] [address] 92817- 6375 Dec, [facility] [id number], [place] [address] 10 Dec, 2015 Cutaneous abscess of limb, unspecified L02.419 ; Cellulitis of unspecified part of limb L03.119 ; Encounter for incision and drainage procedure Z01.89 and Encounter for recheck of abscess following incision and drainage Z09 [facility] [place] [address] [place] [address] 44856 -3252 09 Dec, 2015 Abscess of leg, right L02.415 [place] [id number] [place] [address] 23357- 2277 08 Dec, 2015 Cellulitis of unspecified part of limb L03.119 and Cutaneous abscess of limb, unspecified L02.419 [place] [id number] [place] [address] 71168- 5111 Dec, [place] [id number] [place] [address] 71911- 6664 Dec, [facility] [place] [id number] [place] [address] 71476 -8652 Aug, [place] [id number] [place] [address] 29502- 3555 Aug, [facility] [place] [address] [place] [address] 53698 -0554 Jul, Pain in unspecified wrist M25.539 and Back pain, thoracic M54.6 [facility] [address] [place] [address] 80686 -0593 Jun, Strain of right wrist, initial encounter S66.911A [place] [id number] [place] [address] 17064- 7299 11 Jun, 2015 Chronic pancreatitis, unspecified pancreatitis type K86.1 ; Hirsuties L68.0 ; Morbid (severe) obesity due to excess calories E66.01 ; Chronic pancreatitis K86.1 and Asthma J45.909 [place] [id number] [place] [address] 96510- 4296 May, [facility] [address] [place] [address] 50241- 3969 May, Hyperlipidemia, mixed E78.2 and Muscle spasm of back M62.830 [facility] [id number] [place] [address] 64179- 9443 Apr, [facility] [address] 61801- 4282 Apr, Torticollis M43.6 [facility] [id number] [place] [address] 07650- 1914 Apr, Right-sided thoracic back pain M54.6 [facility] [id number] [place] [address] 37067- 7758 Mar, Rash R21 [facility] [id number] [place] [address] 51923- 6178 Mar, [facility] [id number] [place] [address] 53869- 7744 Jan, [facility] [id number] [place] [address] 19533- 0517 Dec, [facility] [id number] [place] [address] 78098- 5629 Dec, Urinary frequency 788.41 and Nocturia more than twice per night 788.43 [facility] [id number] [place] [address] 21877- 2216 Nov, [facility] [id number] [place] [address] 65655- 5578 Nov, [facility] [address] 31422- 7404 Nov, Abdominal pain 789.00 [facility] [id number] [place] [address] 14558- 1667 October, TDAP DX V06.1 [facility] [id number], [place] [address]- 2546 October, [facility] [address], [place] [address]- 0306 October, Disturbance of skin sensation 782.0 ; Wrist pain, right 719.43 ; Hyperlipidemia 272.4 and Skin lesion of face 709.9 [facility] [address] [place] [address]- 0146 Sep, [facility] [address] [facility] [id number] [place] [address]- 2406 Sep, [facility] [address] [place] [address], [place] [address]- 5166 Aug, [facility] [address], [place] [address]- 3636 Aug, [facility] [address] [place] [address]- 1619 Aug, [facility] [id number], [place] [address]- 6302 23 Aug, 2014 [facility] [address] [place] [address]- 4421 Aug, [facility] [address], [place] [address]- 1116 16 Aug, 2014 [facility] [address], [place] [address]- 1666 14 Aug, 2014 [facility] [address] [facility] [id number] [address]- 1246 14 Aug, 2014 [facility] [address], [place] [address]- 5626 Aug, [facility] [id number], [place] [address]- 2546 Aug, [facility] [id number], [place] [address]- 5916 Aug, [facility] [place] [facility] [address] [id number] [place] [address]- 5334 Aug, [facility] [place] [facility] [address] [id number] [place] [address]- 3699 Aug, [facility] [place] [facility] [address] [id number] [place] [address]- 5417 Aug, [facility] [place] [facility] [address] [id number] [place] [address]- 8503 Jul, [facility] [place] [facility] [address] [id number] [place] [address]- 7272 Jul, [facility] [place] [facility] [address] [id number] [place] [address]- 0049 Jul, [facility] [place] [facility] [address] [id number] [place] [address]- 3024 Jul, [facility] [place] [facility] [address] [id number] [place] [address]- 7125 Jul, [facility] [place] [facility] [address] [id number] [place] [address]- 1170 Jul, [facility] [place] [facility] [address] [id number] [place] [address]- 9362 Jun, [facility] [place] [facility] [address] [id number] [place] [address]- 0460 Jun, [facility] [place] [facility] [address] [id number] [place] [address]- 1570 Jun, [facility] [place] [facility] [address] [id number] [place] [address]- 9494 Jun, [facility] [place] [facility] [address] [id number] [place] [address]- 8885 Jun, [facility] [place] [facility] [address] [id number] [place] [address]- 3891 Jun, [facility] [place] [facility] [address] [id number] [place] [address]- 0054 15 Jun, 2014 [facility] [address] [id number] [place] [address]- 7776 15 Jun, 2014 [facility] [address] [id number] [place] [address]- 6778 May, [facility] [address] [id number] [place] [address]- 4132 May, [facility] [address] [id number] [place] [address]- 5716 May, [facility] [address] [id number] [place] [address]- 8380 May, [facility] [address] [id number] [place] [address]- 0758 May, [facility] [address] [id number] [place] [address]- 7831 May, [facility] [address] [id number] [place] [address]- 4116 May, [facility] [place] [facility] [address] [id number] [place] [address]- 2215 May, [facility] [address] [id number] [place] [address]- 3405 May, [facility] [place] [facility] [address] [id number] [place] [address]- 0778 May, [facility] [place] [facility] [address] [id number] [place] [address]- 3782 May, [facility] [place] [facility] [address] [id number] [place] [address]- 3870 May, [facility] [place] [facility] [address] [id number] [place] [address]- 8085 Apr, [facility] [place] [facility] [address] [id number] [place] [address]- 3850 Apr, [facility] [place] [facility] [address] [id number] [place] [address]- 4574 Apr, [facility] [place] [facility] [address] [id number] [place] [address]- 2254 Apr, [facility] [place] [facility] [address] [id number] [place] [address]- 4814 Apr, [facility] [place] [facility] [address] [id number] [place] [address]- 3842 Apr, [facility] [place] [facility] [address] [id number] [place] [address]- 5258 Apr, [facility] [place] [facility] [address] [id number] [place] [address]- 1168 Apr, [facility] [place] [facility] [address] [id number] [place] [address]- 9979 Apr, [facility] [place] [facility] [address] [id number], [place] [address]- 9705 Apr, [facility] [place] [facility] [address] [id number] [place] [address]- 0472 Apr, [facility] [place] [facility] [address] [id number], [place] [address]- 0242 Apr, [facility] [place] [facility] [address] [id number], [place] [address]- 3832 Mar, [facility] [place] [facility] [address] [id number], [place] [address]- 7173 Mar, [facility] [place] [facility] [address] [id number], [place] [address]- 9937 Mar, [facility] [place] [facility] [address] [id number], [place] [address]- 0314 Mar, [facility] [place] [facility] [address] [id number], [place] [address]- 4033 10 Feb, 2014 [facility] [place] [facility] [address] [id number], [place] [address]- 5099 Feb, 2013 [facility] [place] [facility] [address] [id number] [place] [address]- 9121 05 Feb, 2013 [facility] [place] [facility] [address] [id number] [place] [address]- 7499 Feb, 2013 [facility] [place] [facility] [address] [id number] [place] [address]- 6660 Feb, 2013 [facility] [place] [facility] [address] [id number] [place] [address]- 8475 Feb, 2013 [facility] [place] [facility] [address] [id number] [place] [address]- 5625 Jan, [facility] [place] [facility] [address] [id number] [place] [address]- 5838 Jan, [facility] [place] [facility] [address] [id number] [place] [address]- 7530 Jan, [facility] [place] [facility] [address] [id number] [place] [address]- 9328 Jan, [facility] [place] [facility] [address] [id number] [place] [address]- 8754 Jan, [facility] [place] [facility] [address] [id number] [place] [address]- 1326 Jan, [facility] [place] [facility] [address] [id number] [place] [address]- 9719 Jan, [facility] [place] [facility] [address] [id number] [place] [address] Jan, [facility] [place] [facility] [address] [id number] [place] [address] Jan, [facility] [place] [facility] [address] [id number] [place] [address] Jan, [facility] [place] [facility] [address] [id number] [place] [address] Jan, [facility] [place] [facility] [address] [id number] [place] [address] Jan, [facility] [place] [facility] [address] [id number] [place] [address] Jan, [facility] [place] [facility] [address] [id number] [place] [address] Jan, [facility] [place] [facility] [address] [id number] [place] [address] Dec, [facility] [place] [facility] [address] [id number] [place] [address] Dec, [facility] [place] [facility] [address] [id number] [place] [address] Dec, [facility] [place] [facility] [address] [id number] [place] [address] Dec, [facility] [place] [facility] [address] [id number] [place] [address] Nov, [facility] [place] [facility] [address] [id number] [place] [address] Nov, [facility] [place] [facility] [address] [id number] [place] [address] Nov, [facility] [place] [facility] [address] [id number] [place] [address] Nov, [facility] [place] [facility] [address] [id number] [place] [address] Nov, [facility] [place] [facility] [address] [id number] [place] [address] October, [facility] [place] [facility] [address] [id number] [place] [address] October, [facility] [place] [facility] [address] [id number] [place] [address] October, [facility] [place] [facility] [address] [id number] [place] [address] October, [facility] [place] [facility] [address] [id number] [place] [address] October, [facility] [place] [facility] [address] [id number] [place] [address] October, [facility] [place] [facility] [address] [id number] [place] [address] October, [facility] [place] [facility] [address] [id number] [place] [address] October, [facility] [place] [facility] [address] [id number] [place] [address] October, [facility] [place] [facility] [address] [id number] [place] [address] October, [facility] [place] [facility] [address] [id number] [place] [address] October, [facility] [place] [facility] [address] [id number] [place] [address] October, [facility] [place] [facility] [address] [id number] [place] [address] October, [facility] [place] [facility] [address] [id number] [place] [address] October, [facility] [place] [facility] [address] [id number] [place] [address] Sep, [facility] [place] [facility] [address] [id number] [place] [address] Sep, [facility] [place] [facility] [address] [id number] [place] [address] Sep, [facility] [place] [facility] [address] [id number] [place] [address] Sep, [facility] [place] [facility] [address] [id number] [place] [address] Sep, [facility] [place] [facility] [address] [id number] [place] [address] Sep, [facility] [place] [facility] [address] [address] [id number] [place] [address] Sep, [facility] [place] [facility] [address] [id number] [place] [address] 4262 Sep, [facility] [place] [facility] [address] [id number] [place] [address]30 Sep, [facility] [place] [facility] [address] [id number] [place] [address] 9543 Sep, [facility] [place] [facility] [address] [id number] [place] [address] 1754 Sep, [facility] [place] [facility] [address] [id number] [place] [address] 3485 Sep, [facility] [place] [facility] [address] [id number] [place] [address] 3303 Sep, [facility] [place] [facility] [address] [id number] [place] [address] 3378 Sep, [facility] [place] [facility] [address] [id number] [place] [address] 4856 Sep, [facility] [place] [facility] [address] [id number] [place] [address] 6555 Aug, [facility] [place] [facility] [address] [id number] [place] [address] 1263 Aug, [facility] [place] [facility] [address] [id number] [place] [address]- 6459 Aug, [facility] [place] [facility] [address] [id number] [place] [address]- 1755 Aug, [facility] [place] [facility] [address] [id number] [place] [address] 8763 Jul, [facility] [place] [facility] [address] [id number] [place] [address] Jul, [facility] [place] [facility] [address] [id number] [place] [address] 5452 Jul, [facility] [place] [facility] [address] [id number] [place] [address] 3101 Jul, [facility] [place] [facility] [address] [id number] [place] [address]- 8565 Jun, [facility] [place] [facility] [address] [id number] [place] [address]- 1172 Jun, [facility] [address] [id number] [place] [address]- 8701 Jun, [facility] [place] [facility] [address] [id number] [place] [address]- 1457 Jun, [facility] [place] [facility] [address] [id number] [place] [address]- 6680 Jun, [facility] [address] [id number] [place] [address]- 2856 Jun, [facility] [address] [id number] [place] [address]- 7602 Jun, [facility] [address] [facility] [id number], [place] [address] 49[address] Jun, [facility] [address] [id number], [place] [address] 2909 May, [facility] [place] [facility] [address] [id number], [place] [address]- 0465 May, [facility] [place] [facility] [address] [id number] [place] [address]- 4855 18 May, 2013 [facility] [place] [facility] [address] [id number] [place] [address]- 6668 18 May, 2013 [facility] [place] [facility] [address] [facility] [id number], [place] [address]- 2058 17 May, 2013 [facility] [place] [facility] [address] [id number] [id number] 17 May, 2013 [facility] [address] [id number] [place] [address] 17 May, 2013 [facility] [place] [facility] [address] [id number] [place] [address]- 7062 17 May, 2013 [facility] [address] [id number] [place] [address]68 16 May, 2013 [facility] [place] [facility] [address] [id number] [place] [address]- 5091 16 May, 2013 [facility] [address] [id number] [place] [address]- 8403 14 May, 2013 [facility] [place] [facility] [address] [id number] [place] [address]- 6308 14 May, 2013 [facility] [address] [id number] [place] [address]- 3257 13 May, 2013 [facility] [place] [facility] [address] [id number] [place] [address]- 6366 13 May, 2013 [facility] [place] [facility] [address] [id number] [place] [address]- 0504 12 May, 2013 [facility] [place] [facility] [address] [id number] [place] [address]- 2773 12 May, 2013 [facility] [place] [facility] [address] [id number] [place] [address]- 5920 11 May, 2013 [facility] [place] [facility] [address] [id number] [place] [address]- 5058 11 May, 2013 [facility] [place] [facility] [address] [id number] [place] [address] Apr, [facility] [place] [facility] [address] [id number] [place] [address] Apr, [facility] [place] [facility] [address] [id number] [place] [address] Apr, [facility] [place] [facility] [address] [id number] [place] [address]- 6206 Apr, [facility] [address] [id number] [place] [address]- 2676 27 Aug, 2012 [facility] [address] [id number] [place] [address] 2546 18 Aug, 2012 [facility] [address] [id number] [place] [address] 2546 06 Aug, 2012 [facility] [address] [id number] [place] [address] 254 05 Aug, 2012 [facility] [address] [id number] [place] [address]- 2279 04 Jul, 2012 [facility] [address] [id number] [place] [address]- 9032 Jun, [facility] [address] [id number] [place] [address]- 2280 Jun, [facility] [address] [id number] [place] [address]- 8543 Jun, [facility] [address] [id number] [place] [address]- 8955 Jun, [facility] [address] [id number] [place] [address] 9051 May, [facility] [address] [id number] [place] [address]- 9806 May, [facility] [address] [id number] [place] [address]- 5910 May, [facility] [address] [id number] [place] [address]- 4646 May, [facility] [address] [id number] [place] [address]- 2546 May, [facility] [address] [id number] [place] [address]- 2622 May, [facility] [place] [facility] [address] [id number] [place] [address]- 1163 May, [facility] [place] [facility] [address] [id number] [place] [address]- 4289 Apr, [facility] [place] [facility] [address] [id number] [place] [address]- 5133 Apr, [facility] [place] [facility] [address] [id number] [place] [address]- 7742 Apr, [facility] [place] [facility] [address] [id number] [place] [address]- 7310 Apr, [facility] [place] [facility] [address] [id number], [place] [address]- 6244 Apr, [facility] [place] [facility] [address] [id number] [place] [address]- 7916 Apr, [facility] [place] [facility] [address] [id number], [place] [address]- 5327 Apr, [facility] [place] [facility] [address] [id number], [place] [address]- 5493 Mar, [facility] [place] [facility] [address] [id number], [place] [address]- 3173 Mar, [facility] [place] [facility] [address] [id number], [place] [address]- 4614 Mar, [facility] [place] [facility] [address] [id number], [place] [address]- 4230 Mar, [facility] [place] [facility] [address] [id number], [place] [address]- 7358 Mar, [facility] [place] [facility] [address] [id number], [place] [address]- 3392 Mar, [facility] [place] [facility] [address] [facility] [id number], [place] [address]- 2631 Mar, [facility] [place] [facility] [address] [id number] [place] [address]- 2812 17 Mar, 2012 [facility] [place] [facility] [address] [id number] [place] [address]- 3096 15 Mar, 2012 [facility] [place] [facility] [address] [id number] [place] [address]- 6973 15 Mar, 2012 [facility] [place] [facility] [address] [id number] [place] [address]- 1099 Mar, [facility] [place] [facility] [address] [id number] [place] [address]- 8805 Mar, [facility] [place] [facility] [address] [id number] [place] [address]- 1558 Feb, [facility] [place] [facility] [address] [id number] [place] [address]- 7181 Jan, [facility] [place] [facility] [address] [id number] [place] [address]- 3885 14 Jan, 2012 [facility] [place] [facility] [address] [id number] [place] [address]- 8543 Jan, [facility] [place] [facility] [address] [id number] [place] [address]- 3470 Jan, [facility] [place] [facility] [address] [facility] [id number] [place] [address]- 1271 Jan, [facility] [place] [facility] [address] [id number] [place] [address]- 5927 Dec, [facility] [place] [facility] [address] [id number] [place] [address]- 6996 Dec, [facility] [place] [facility] [address] [id number] [place] [address]- 4542 Nov, [facility] [place] [facility] [address] [id number] [place] [address]- 3514 Nov, [facility] [place] [facility] [address] [facility] [id number] [place] [address]- 4787 Nov, [facility] [place] [facility] [address] [id number] [place] [address]- 2965 October, [facility] [address] [id number] [place] [address]- 6752 October, [facility] [address] [id number] [place] [address]- 2469 October, [facility] [address] [id number] [place] [address]- 2113 October, [facility] [address] [id number] [place] [address]- 4899 October, [facility] [address] [id number] [place] [address]- 4278 October, [facility] [address] [id number] [place] [address]- 2473 October, [facility] [address] [id number] [place] [address]- 3014 Sep, [facility] [address] [id number] [place] [address]- 1293 Sep, [facility] [address] [id number] [place] [address]- 5247 Sep, [facility] [address] [id number] [place] [address]- 2638 Sep, [facility] [address] [id number] [place] [address]- 5463 24 Sep, 2011 [facility] [place] [facility] [address] [id number] [place] [address]- 8181 19 Sep, 2011 [facility] [place] [facility] [address] [id number] [place] [address]- 9552 17 Sep, [address] [facility] [place] [facility] [address] [id number] [place] [address]- 3051 16 Sep, 2011 [facility] [place] [facility] [address] [id number] [place] [address]- 2106 16 Sep, 2011 [facility] [place] [facility] [address] [id number] [place] [address]- 2437 14 Sep, 2011 [facility] [place] [facility] [address] [id number] [place] [address]- 6926 13 Sep, 2011 [facility] [place] [facility] [address] [facility] [id number] [place] [address]- 2426 10 Sep, 2011 [facility] [place] [facility] [address] [id number] [place] [address]- 2054 09 Sep, 2011 [facility] [place] [facility] [address] [id number] [place] [address]- 0751 27 Aug, 2011 [facility] [place] [facility] [address] [facility] [id number] [place] [address]- 3280 12 Aug, 2011 [facility] [place] [facility] [address] [facility] [id number] [place] [address]- 6365 08 Aug, 2011 [facility] [place] [facility] [address] [facility] [id number] [place] [address]- 9507 06 Aug, 2011 [facility] [place] [facility] [address] [facility] [id number] [place] [address]- 2331 28 Jul, 2011 [facility] [place] [facility] [address] [facility] [id number] [place] [address]- 5075 22 Jul, 2011 [facility] [place] [facility] [address] [id number] [place] [address]- 3055 16 Jul, 2011 [facility] [place] [facility] [address] [facility] [id number] [place] [address]- 4926 15 Jul, 2011 [facility] [place] [facility] [address] [facility] [id number] [place] [address]- 7781 14 Jul, 2011 [facility] [place] [facility] [address] [facility] [id number] [place] [address]- 7008 10 Jul, 2011 [facility] [place] [facility] [address] [id number] [place] [address]- 1917 30 Jun, 2011 [facility] [place] [facility] [address] [id number] [place] [address]- 1471 05 Jun, 2011 [facility] [place] [facility] [address] [id number] [place] [address]- 2206 Jun, [facility] [place] [facility] [address] [id number] [place] [address]- 5096 Jun, [facility] [place] [facility] [address] [id number] [place] [address]- 0879 Jun, [facility] [place] [facility] [address] [id number] [place] [address]- 3205 May, [facility] [place] [facility] [address] [id number] [place] [address]- 6352 May, [facility] [place] [facility] [address] [id number] [place] [address]- 3564 May, [facility] [place] [facility] [address] [id number] [place] [address]- 5962 14 May, 2011 [facility] [place] [facility] [address] [id number] [place] [address]- 0395 May, [facility] [place] [facility] [address] [id number] [place] [address]- 1106 May, [facility] [place] [facility] [address] [id number] [place] [address]- 4636 May, [facility] [place] [facility] [address] [id number] [place] [address]- 6412 15 Apr, 2011 [facility] [place] [facility] [address] [id number] [place] [address]- 2643 15 Apr, 2011 [facility] [place] [facility] [address] [id number] [place] [address]- 8324 07 Apr, 2011 [facility] [place] [facility] [address] [id number] [place] [address]- 8016 07 Apr, 2011 [facility] [place] [facility] [address] [id number] [place] [address] 1916 Apr, [facility] [place] [facility] [address] [id number] [place] [address]- 2472 Apr, [facility] [place] [facility] [address] [id number] [place] [address]- 2174 Mar, [facility] [place] [facility] [address] [id number] [place] [address]- 3792 Mar, [facility] [place] [facility] [address] [id number] [place] [address]- 6705 Mar, [facility] [place] [facility] [address] [id number] [place] [address]- 2448 Mar, [facility] [place] [facility] [address] [id number] [place] [address]- 2986 Jan, [facility] [place] [facility] [address] [id number] [place] [address]- 8100 Dec, [facility] [place] [facility] [address] [id number] [place] [address]- 5003 Dec, [facility] [place] [facility] [address] [id number] [place] [address]- 1985 October, [facility] [place] [facility] [address] [id number] [place] [address]- 9435 Sep, [facility] [place] [facility] [address] [id number] [place] [address]- 2206 Sep, [facility] [place] [facility] [address] [id number], [place] [address]- 3201 Jul, [facility] [place] [facility] [address] [id number] [place] [address]- 8113 Jul, [facility] [place] [facility] [address] [id number] [place] [address]- 7574 May, [facility] [place] [facility] [address] [id number] [place] [address]- 3202 May, [facility] [place] [facility] [address] [id number] [place] [address]- 6400 08 May, 2010 [facility] [address] [id number] [place] [address]- 2076 May, [facility] [address] [id number] [place] [address]- 2395 Apr, [facility] [address] [id number] [place] [address]- 8721 Apr, [facility] [address] [id number] [place] [address] 2547 Apr, [facility] [address] [id number] [place] [address]- 9591 Apr, [facility] [address] [id number] [place] [address]- 9364 Apr, [facility] [address] [id number] [place] [address]- 3388 Mar, [facility] [address] [id number] [place] [address]- 1739 14 Mar, 2010 [facility] [address] [id number] [place] [address]- 9866 13 Mar, 2010 [facility] [address] [facility] [id number] [place] [address]- 4238 12 Mar, 2010 [facility] [address] [id number] [place] [address]- 9015 Jan, [facility] [address] [id number] [place] [address]- 5355 15 Dec, 2009 [facility] [place] [facility] [address] [id number] [place] [address]- 9337 10 Sep, 2009 [facility] [place] [facility] [address] [id number] [place] [address]- 6544 08 May, 2009 [facility] [place] [facility] [address] [id number] [place] [address]- 8990 May, [facility] [address] [id number], [place] [address]- 9944 May, [facility] [address]65[address] 4270 Apr, [facility] [address] 7158 Apr, [facility] [id number] [place] [address]- 1036 Apr, [facility] [address]00565[place] 3141 Apr, [facility] [id number] [place] [address] 065450- 0492 Apr, [facility] [id number] [place] [address] 278248- 7101 Mar, [facility] [id number] [place] [address] 494462- 4795 Mar, [facility] [address]00565100[place], [place] [address]- 8658 Jul, IMMUNIZATIONS No Known Immunizations SOCIAL HISTORY Never Assessed REASON FOR VISIT Requests return call PLAN OF CARE VITAL SIGNS [...] ventral incisional hernia repair- Dr. Daniel 08/2017 Surgical History nephrectomy 03/2017 Hospitalization History Cellulitis[facility] 12/20/15 Hospitalization History [facility]- Abd pain 03/07/2017 Hospitalization History [facility]- Abd pain 03/14/2017 Hospitalization History [facility]- No bowel movement, rash 04/13/2017 Hospitalization History [facility]- Abd pain r/t kidney surgery on 04/17/2017 Hospitalization History [facility]- Abd pain r/t kidney surgery on 04/18/2017 Hospitalization History [facility]- Lower abd pain 04/30/2017 Hospitalization History [facility]- Cannot urinate 05/30/2017 Hospitalization History [facility]- Pancreatitis Sx 06/29/2017 Hospitalization History [facility]- Stomach pain 07/22/2017 Hospitalization History [facility]- Left side pain 08/12/2017 Hospitalization History [facility]- Incision site infection 08/30/2017 Hospitalization History [facility]- Post Op Seroma/Hematoma Left Abdomen. Discharged 09/04/17- Dr Daniel 09/02/2017 Hospitalization History [facility]- Right shoulder and back pain 2017
--- OUTSIDE RECORDS SUMMARY | 2017-12-18 01:32 | XMS REPORT ---
Author Author SAI CARMEN Organization [facility] Address [address] [place] [address] Care Team Providers Care Gas Charger Name Role Phone CARMEN GIBBS Unavailable PROBLEMS Type Condition ICD9-CM Code DUB53-QV Code Onset Dates Condition Status SNOMED Code Problem Asthma J45.909 Active 194073434 Problem Atelectasis J98.11 Active 36197135 Problem Polydipsia R63.1 Active 28079740 Problem Chronic fatigue R53.82 Active 05666013 Problem Moderate episode of recurrent major depressive disorder F33.1 Active 535656356 Problem Generalized social phobia F40.11 Active 74337668 Problem Trichotillomania F63.3 Active 35263926 Problem Restless leg syndrome G25.81 Active 68892807 Problem Chronic post-traumatic stress disorder (PTSD) F43.12 Active 701836967 Problem History of renal cell carcinoma Z85.528 Active 764479514 Problem Nodule of left lung R91.1 Active 801985034 Problem Chronic tension-type headache, intractable G44.221 Active 985425536 Problem Hyperlipidemia, mixed E78.2 Active 156080728 Problem Hirsuties L68.0 Active 022670412 Problem Morbid (severe) obesity due to excess calories E66.01 Active 745227199 Problem FH: polycystic ovary Z84.2 Active 422623617 Problem Chronic pancreatitis K86.1 Active [id number] ALLERGIES No Information ENCOUNTERS Encounter Location Date Diagnosis [facility] [address] [facility] [id number], [place] [address] Feb, [facility] [address] [id number] [address] Dec, [facility] [address] [facility] [id number], [place] [address] Nov, Acute suppurative otitis media of right ear without spontaneous rupture of tympanic membrane, recurrence not specified H66.001 and BMI 45.0-49.9, adult Z68.42 [place] [id number] [place] [address] 89622- 5846 Nov, Hyperlipidemia, mixed E78.2 [place] [id number] [place] [address] 11301- 7085 Nov, [place] [id number] [place] [address] 94268- 2221 Nov, [place] [id number] [place] [address] 39451- 8833 Nov, Nodule of left lung R91.1 [place] [id number] [place] [address] 60266- 9243 Nov, Medicare annual wellness visit, initial Z00.00 [...] adult Z68.42 and Encounter for immunization Z23 [place] [id number] [place] [address] 96219- 9812 October, [place] [id number] [place] [address] 32862- 7868 October, Nodule of left lung R91.1 [place] [id number] [place] [address] 83727- 0115 October, Nodule of left lung R91.1 [place] [id number] [place] [address] 88322- 6774 October, Recurrent major depressive disorder, in partial remission F33.41 ; Restless leg syndrome G25.81 ; Generalized social phobia F40.11 ; Chronic post-traumatic stress disorder (PTSD) F43.12 ; BMI 45.0-49.9, adult Z68.42 and Trichotillomania F63.3 [place] [id number] [place] [address] 30453- 0468 October, [place] [id number] [place] [address] 40078- 4473 Sep, Chronic fatigue R53.82 and BMI 45.0-49.9, adult Z68.42 [place] [id number] [place] [address] 96383- 9492 Aug, [place] [address] 32419- 6972 Jul, Restless leg syndrome G25.81 and B12 deficiency E53.8 [place] [address] 52792- 8050 Jul, [place] [id number] [place] [address] 80853- 0975 Jul, [place] [id number] [place] [address] 20774- 0487 Jun, [place] [id number] [place] [address] 96051- 6866 Jun, Fatigue, unspecified type R53.83 ; History of renal cell carcinoma Z85.528 ; Chronic pancreatitis K86.1 ; Restless leg syndrome G25.81 ; Dark urine R82.99 and BMI 45.0-49.9, adult Z68.42 [place] [id number] [place] [address] 16323- 5158 Jun, [place] [id number] [place] [address] 68434- 0483 Jun, [place] [id number] [place] [address] 40851- 8534 Jun, [place] [address], [place] [address] 0456 Jun, [place] [id number] [place] [address] 97456- 6153 May, Chronic post-traumatic stress disorder (PTSD) F43.12 ; Moderate episode of recurrent major depressive disorder F33.1 ; Trichotillomania F63.3 and Generalized social phobia F40.11 [place] [id number] [place] [address] 84515- 7460 May, [place] [address] [place] [address] 89689- 2519 May, Chronic post-traumatic stress disorder (PTSD) F43.12 ; Moderate episode of recurrent major depressive disorder F33.1 ; Trichotillomania F63.3 and Generalized social phobia F40.11 [place] [address] [place] [address] 58046- 9664 May, Hyperlipidemia, mixed E78.2 ; Morbid (severe) obesity due to excess calories E66.01 ; Chronic post-traumatic stress disorder (PTSD) F43.12 ; Moderate episode of recurrent major depressive disorder F33.1 ; Trichotillomania F63.3 and Generalized social phobia F40.11 [place] [address], [place] [address] 3782 Apr, [place] [address] [place] [address] 60006- 5628 Apr, Hyperlipidemia, mixed E78.2 ; Morbid (severe) obesity due to excess calories E66.01 ; Chronic post-traumatic stress disorder (PTSD) F43.12 ; Moderate episode of recurrent major depressive disorder F33.1 ; Trichotillomania F63.3 and Generalized social phobia F40.11 [place] [address], [place] [address] 8[address] Apr, Trichotillomania F63.3 ; Generalized social phobia F40.11 ; Chronic post-traumatic stress disorder (PTSD) F43.12 and Moderate episode of recurrent major depressive disorder F33.1 [facility] [id number] [place] [address] 68583- 8751 Apr, [facility] [id number] [place] [address] 21075- 2919 Apr, [facility] [id number] [place] [address] 03051- 2129 Mar, Moderate episode of recurrent major depressive disorder F33.1 ; Trichotillomania F63.3 ; Chronic post-traumatic stress disorder (PTSD) F43.12 ; Generalized social phobia F40.11 and Restless leg syndrome G25.81 [facility] [id number] [place] [address] 81251- 4471 Mar, [facility] [id number] [place] [address] 91590- 6736 Mar, [facility] [id number] [place] [address] 54934- 2175 Feb, Left kidney mass N28.89 [facility] [id number] [place] [address] 10200- 5158 Jan, [facility] [id number] [place] [address] 43512- 1009 Dec, Polydipsia R63.1 ; Chronic pancreatitis K86.1 and Fatigue, unspecified type R53.83 [facility] [id number] [place] [address] 58144- 6058 Nov, [facility] [id number] [place] [address] 24244- 2664 Nov, [facility] [id number] [place] [address] 09463- 5964 Nov, Headache around the eyes R51 [facility] [id number] [place] [address] 54062- 5808 Nov, [facility] [address] [place] [address]- 0682 October, STD exposure Z20.2 [place] [id number] [place] [address] 17200- 1404 October, STD exposure Z20.2 [facility] [id number] [place] [address] 23998- 2807 October, Chronic post-traumatic stress disorder (PTSD) F43.12 ; Generalized social phobia F40.11 ; Trichotillomania F63.3 and Restless leg syndrome G25.81 [place] [id number] [place] [address] 64210- 7391 October, [place] [id number] [place] [address] 06889- 0939 Sep, [place] [id number] [place] [address] 09588- 7524 Aug, [place] [id number] [place] [address] 32091- 4564 Aug, [facility] [id number] [place] [address] 36314- 0487 Aug, Neck mass R22.1 [place] [id number] [place] [address] 50750- 4814 Aug, Atelectasis J98.11 [place] [id number] [place] [address] 08834- 2892 Jul, Hyperlipidemia, mixed E78.2 ; Atypical pneumonia J18.9 and Neck mass R22.1 [place] [id number] [place] [address] 23903- 8502 15 Jul, 2016 Hemoptysis R04.2 [facility] [id number] [place] [address] 23849- 4252 08 Jul, 2016 Acute non-recurrent pansinusitis J01.40 ; Hemoptysis R04.2 ; Polydipsia R63.[address] [facility] [address] May, Other viral agents as the cause of diseases classified elsewhere B97.89 and Acute upper respiratory infection, unspecified J06.9 [facility] [id number] [place] [address] 50188 -4998 Mar, Nausea R11.0 [facility] [id number] [place] [address] 32307 -6655 Dec, Hives L50.9 [place] [id number] [place] [address] 57842- 0075 Dec, [facility] [id number] [place] [address] 32306 -5769 Dec, Cutaneous abscess of limb, unspecified L02.419 ; Cellulitis of unspecified part of limb L03.119 ; Encounter for incision and drainage procedure Z01.89 and Encounter for recheck of abscess following incision and drainage Z09 [facility] [id number] [place] [address] 01468 -4341 Dec, Abscess of leg, right L02.415 [place] [id number] [place] [address] 28450- 9000 Dec, Cellulitis of unspecified part of limb L03.119 and Cutaneous abscess of limb, unspecified L02.419 [place] [id number] [place] [address] 31698- 8558 Dec, [place] [id number] [place] [address] 06966- 4493 Dec, [facility] [id number] [place] [address] 83814 -7967 Aug, [place] [id number] [place] [address] 65207- 5371 Aug, [facility] [id number] [place] [address] 21232 -2895 04 Jul, 2015 Pain in unspecified wrist M25.539 and Back pain, thoracic M54.6 [facility] [id number] [place] [address] 90251 -2198 Jun, Strain of right wrist, initial encounter S66.911A [facility] [id number] [place] [address] 59623- 0819 Jun, Chronic pancreatitis, unspecified pancreatitis type K86.1 ; Hirsuties L68.0 ; Morbid (severe) obesity due to excess calories E66.01 ; Chronic pancreatitis K86.1 and Asthma J45.909 [place] [address] 65822- 5495 May, [facility] [address] 90965- 4221 May, Hyperlipidemia, mixed E78.2 and Muscle spasm of back M62.830 [facility] [id number] [place] [address] 93761- 3339 Apr, [facility] [address] 03259- 9921 Apr, Torticollis M43.6 [facility] [id number] [place] [address] 12257- 4972 Apr, Right-sided thoracic back pain M54.6 [facility] [id number] [place] [address] 78797- 4467 Mar, Rash R21 [facility] [id number] [place] [address] 39694- 8226 Mar, [facility] [address] 82632- 5725 Jan, [facility] [id number] [place] [address] 58547- 2908 Dec, [facility] [address] 20229- 9557 Dec, Urinary frequency 788.41 and Nocturia more than twice per night 788.43 [facility] [id number] [place] [address] 47939- 3416 Nov, [facility] [id number] [place] [address] 12443- 9448 Nov, [facility] [id number] [place] [address] 89973- 7373 Nov, Abdominal pain 789.00 [facility] [id number] [place] [address] 70871- 2893 October, TDAP DX V06.1 [facility] [id number] [place] [address] 66281- 2468 October, [facility] [id number] [place] [address] 37467- 7331 October, Disturbance of skin sensation 782.0 ; Wrist pain, right 719.43 ; Hyperlipidemia 272.4 and Skin lesion of face 709.9 [facility] [address] [place] [address] 62299- 6277 Sep, [facility] [id number] [place] [address] 20647- 3242 Sep, [facility] [address], [place] [address]- 5232 Aug, [facility] [id number] [place] [address] 87093- 8591 Aug, [facility] [address], [place] [address]- 0522 Aug, [facility] [id number] [place] [address] 97423- 9803 Aug, [facility] [address], [place] [address]- 7619 16 Aug, 2014 [facility] [address] [place] [address]- 5679 16 Aug, 2014 [facility] [place] [facility] [address] [id number] [place] [address]- 2136 14 Aug, 2014 [facility] [place] [facility] [address] [id number] [place] [address]- 9923 14 Aug, 2014 [facility] [place] [facility] [address] [id number] [place] [address]- 6623 11 Aug, 2014 [facility] [place] [facility] [address] [id number] [place] [address]- 8294 11 Aug, 2014 [facility] [place] [facility] [address] [id number] [place] [address]- 8772 04 Aug, 2014 [facility] [place] [facility] [address] [id number] [place] [address]- 4986 04 Aug, 2014 [facility] [place] [facility] [address] [id number] [place] [address]- 4037 Aug, [facility] [place] [facility] [address] [id number] [place] [address]- 4101 03 Aug, 2014 [facility] [place] [facility] [address] [id number] [place] [address]- 2383 Jul, 2014 [facility] [place] [facility] [address] [id number] [place] [address]- 1493 23 Jul, 2014 [facility] [place] [facility] [address] [id number] [place] [address]- 1135 13 Jul, 2014 [facility] [place] [facility] [address] [id number] [place] [address]- 9218 Jul, 2014 [facility] [place] [facility] [address] [id number] [place] [address]- 6627 Jul, [facility] [place] [facility] [address] [id number] [place] [address]- 1368 04 Jul, 2014 [facility] [place] [facility] [address] [id number] [place] [address]- 8583 Jun, [facility] [place] [facility] [address] [id number] [place] [address]- 2087 Jun, [facility] [place] [facility] [address] [id number] [place] [address]- 7323 Jun, [facility] [place] [facility] [address] [id number] [place] [address]- 2036 Jun, [facility] [place] [facility] [address] [id number] [place] [address]- 9836 Jun, [facility] [place] [facility] [address] [id number] [place] [address]- 4913 Jun, [facility] [place] [facility] [address] [id number] [place] [address]- 9974 Jun, [facility] [place] [facility] [address] [id number] [place] [address]- 5951 Jun, [facility] [place] [facility] [address] [id number] [place] [address]- 5294 May, [facility] [place] [facility] [address] [id number] [place] [address]- 2989 19 May, 2014 [facility] [place] [facility] [address] [id number] [place] [address]- 9621 18 May, 2014 [facility] [place] [facility] [address] [id number] [place] [address]- 8036 18 May, 2014 [facility] [place] [facility] [address] [id number], [place] [address]- 7924 15 May, 2014 [facility] [place] [facility] [address] [id number] [place] [address]- 8544 15 May, 2014 [facility] [place] [facility] [address] [id number] [place] [address]- 0604 11 May, 2014 [facility] [place] [facility] [address] [id number] [place] [address]- 1269 11 May, 2014 [facility] [place] [facility] [address] [id number] [place] [address]- 7413 May, [facility] [place] [facility] [address] [id number] [place] [address]- 8739 May, [facility] [place] [facility] [address] [id number] [place] [address]- 5865 May, [facility] [place] [facility] [address] [id number] [place] [address]- 4309 May, [facility] [place] [facility] [address] [id number] [place] [address]- 1439 Apr, [facility] [place] [facility] [address] [id number] [place] [address]- 6574 Apr, [facility] [place] [facility] [address] [id number] [place] [address]- 2897 Apr, [facility] [place] [facility] [address] [id number] [place] [address]- 9589 Apr, [facility] [place] [facility] [address] [id number] [place] [address]- 1767 Apr, [facility] [place] [facility] [address] [id number] [place] [address]- 8206 Apr, [facility] [place] [facility] [address] [id number] [place] [address]- 9142 Apr, [facility] [place] [facility] [address] [id number] [place] [address]- 9766 Apr, [facility] [place] [facility] [address] [id number] [place] [address]- 6021 Apr, [facility] [place] [facility] [address] [id number] [place] [address]- 7278 Apr, [facility] [place] [facility] [address] [id number] [place] [address]- 3673 Apr, [facility] [place] [facility] [address] [id number] [place] [address]- 9653 Apr, [facility] [place] [facility] [address] [id number] [place] [address]- 5296 Mar, [facility] [place] [facility] [address] [id number] [place] [address]- 5641 Mar, [facility] [place] [facility] [address] [id number] [place] [address]- 0351 Mar, [facility] [place] [facility] [address] [id number] [place] [address]- 6263 Mar, [facility] [place] [facility] [address] [id number] [place] [address]- 2015 Feb, [facility] [place] [facility] [address] [id number] [place] [address] Feb, 2013 [facility] [place] [facility] [address] [id number] [place] [address] Feb, 2013 [facility] [place] [facility] [address] [id number] [place] [address] Feb, 2013 [facility] [place] [facility] [address] [id number] [place] [address] Feb, [facility] [place] [facility] [address] [id number] [place] [address] Feb, 2013 [facility] [place] [facility] [address] [id number] [place] [address] Jan, [facility] [place] [facility] [address] [id number] [place] [address] Jan, [facility] [place] [facility] [address] [id number] [place] [address] Jan, [facility] [place] [facility] [address] [id number] [place] [address] Jan, [facility] [place] [facility] [address] [id number] [place] [address] Jan, [facility] [place] [facility] [address] [id number] [place] [address] Jan, [facility] [place] [facility] [address] [id number] [place] [address] Jan, [facility] [place] [facility] [address] [id number] [place] [address] Jan, [facility] [place] [facility] [address] [id number] [place] [address] Jan, [facility] [place] [facility] [address] [id number] [place] [address] Jan, [facility] [place] [facility] [address] [id number] [place] [address] Jan, [facility] [place] [facility] [address] [id number] [place] [address] Jan, [facility] [place] [facility] [address] [id number] [place] [address] Jan, [facility] [place] [facility] [address] [id number] [place] [address] Jan, [facility] [place] [facility] [address] [id number] [place] [address] Dec, [facility] [place] [facility] [address] [id number] [place] [address] Dec, [facility] [place] [facility] [address] [id number] [place] [address] Dec, [facility] [place] [facility] [address] [id number] [place] [address] Dec, [facility] [place] [facility] [address] [id number] [place] [address] Nov, [facility] [place] [facility] [address] [id number] [place] [address] Nov, [facility] [place] [facility] [address] [id number] [place] [address] Nov, [facility] [place] [facility] [address] [id number] [place] [address] Nov, [facility] [address] [id number] [place] [address] Nov, [facility] [place] [facility] [address] [id number] [place] [address] October, [facility] [place] [facility] [address] [id number] [place] [address] October, [facility] [place] [facility] [address] [id number] [place] [address] October, [facility] [place] [facility] [address] [id number] [place] [address] October, [facility] [place] [facility] [address] [id number] [place] [address] October, [facility] [place] [facility] [address] [id number] [place] [address] October, [facility] [address] [id number] [place] [address] October, [facility] [place] [facility] [address] [id number] [place] [address] October, [facility] [place] [facility] [address] [id number] [place] [address] October, [facility] [place] [facility] [address] [id number] [place] [address] October, [facility] [place] [facility] [address] [id number] [place] [address] October, [facility] [place] [facility] [address] [id number] [place] [address] [place], [facility] [place] [facility] [address] [address] [id number] [place] [address] October, [facility] [place] [facility] [address] [id number] [place] [address] October, [facility] [place] [facility] [address] [id number] [place] [address] Sep, [facility] [place] [facility] [address] [id number] [place] [address]64 Sep, [facility] [place] [facility] [address] [id number] [place] [address] 7795 Sep, [facility] [place] [facility] [address] [id number] [place] [address] Sep, [facility] [place] [facility] [address] [id number] [place] [address] 1723 Sep, [facility] [place] [facility] [address] [id number] [place] [address] 4828 Sep, [facility] [place] [facility] [address] [id number] [place] [address]- 96[address] Sep, [facility] [place] [facility] [address] [id number] [place] [address]690 Sep, [facility] [place] [facility] [address] [id number] [place] [address] 9[address] Sep, [facility] [place] [facility] [address] [id number] [place] [address]- 9895 Sep, [facility] [place] [facility] [address] [id number] [place] [address] Sep, [facility] [place] [facility] [address] [id number] [place] [address]- 2533 Sep, [facility] [place] [facility] [address] [id number] [place] [address] 8149 Sep, [facility] [place] [facility] [address] [id number] [place] [address] 4930 Sep, [facility] [place] [facility] [address] [id number] [place] [address]- 3934 Sep, [facility] [place] [facility] [address] [id number] [place] [address] 9961 29 Aug, 2013 [facility] [place] [facility] [address] [id number] [place] [address]- 7687 29 Aug, 2013 [facility] [place] [facility] [address] [id number] [place] [address]- 7842 Aug, [facility] [place] [facility] [address] [id number] [place] [address] 4318 Aug, [facility] [place] [facility] [address] [id number] [place] [address]- 7265 Jul, [facility] [place] [facility] [address] [id number] [place] [address]- 2345 Jul, [facility] [place] [facility] [address] [id number] [place] [address]- 7756 Jul, [facility] [place] [facility] [address] [id number] [place] [address]- 2576 Jul, [facility] [place] [facility] [address] [id number] [place] [address]- 7541 Jun, [facility] [place] [facility] [address] [id number] [place] [address]- 3319 Jun, [facility] [place] [facility] [address] [id number] [place] [address] 1943 Jun, [facility] [place] [facility] [address] [id number] [place] [address]- 1979 Jun, [facility] [place] [facility] [address] [id number] [place] [address]- 3[address] Jun, [facility] [place] [facility] [address] [id number] [place] [address]- 6629 Jun, [facility] [place] [facility] [address] [id number] [place] [address]- 9650 Jun, [facility] [place] [facility] [address] [id number] [place] [address]- 8263 Jun, [facility] [place] [facility] [address] [id number] [place] [address]- 9457 20 May, 2013 [facility] [address] [id number] [place] [address] 20 May, 2013 [facility] [address] [id number] [place] [address]- 2313 18 May, 2013 [facility] [address] [id number] [place] [address]- 4287 18 May, 2013 [facility] [address] [id number] [place] [address] 17 May, 2013 [facility] [address] [id number] [place] [id number] 17 May, 2013 [facility] [address] [facility] [id number] [place] [address] 9487 17 May, 2013 [facility] [address] [id number] [place] [address]- 6596 17 May, 2013 [facility] [address] [id number] [place] [address]- 5467 16 May, 2013 [facility] [address] [id number] [place] [address]- 4402 16 May, 2013 [facility] [address] [id number] [place] [address]- 9750 14 May, 2013 [facility] [address] [id number] [place] [address]- 3654 14 May, 2013 [facility] [address] [id number] [place] [address] 13 May, 2013 [facility] [address] [id number] [place] [address]- 4185 13 May, 2013 [facility] [address] [id number] [place] [address]- 9683 12 May, 2013 [facility] [address] [id number] [place] [address]- 8482 May, [facility] [address] [id number] [place] [address]- 9497 May, [facility] [place] [facility] [address] [id number] [place] [address]- 8320 May, [facility] [place] [facility] [address] [id number] [place] [address]- 1524 Apr, [facility] [place] [facility] [address] [id number] [place] [address]- 2286 Apr, [facility] [place] [facility] [address] [id number] [place] [address]- 9176 Apr, [facility] [place] [facility] [address] [id number] [place] [address]- 1514 Apr, [facility] [address] [id number] [place] [address]- 0107 Aug, [facility] [place] [facility] [address] [id number] [place] [address]- 8228 Aug, [facility] [place] [facility] [address] [id number] [place] [address]- 6082 Aug, [facility] [place] [facility] [address] [id number] [place] [address]- 0007 Aug, [facility] [place] [facility] [address] [id number] [place] [address]- 6509 Jul, [facility] [place] [facility] [address] [id number] [place] [address]- 9004 Jun, [facility] [place] [facility] [address] [id number] [place] [address]- 1392 Jun, [facility] [place] [facility] [address] [id number] [place] [address]- 9581 Jun, [facility] [place] [facility] [address] [id number] [place] [address]- 9676 Jun, [facility] [place] [facility] [address] [id number] [place] [address]- 9157 May, [facility] [place] [facility] [address] [id number] [place] [address]- 6013 May, [facility] [place] [facility] [address] [id number] [place] [address]- 0896 May, [facility] [place] [facility] [address] [id number] [place] [address]- 1213 May, [facility] [place] [facility] [address] [id number] [place] [address]- 8076 May, [facility] [place] [facility] [address] [id number] [place] [address]- 3680 May, [facility] [place] [facility] [address] [id number] [place] [address]- 4372 May, [facility] [place] [facility] [address] [id number] [place] [address]- 1415 Apr, [facility] [address] [id number] [place] [address]- 8333 Apr, [facility] [place] [facility] [address] [id number] [place] [address]- 7751 Apr, [facility] [place] [facility] [address] [facility] [id number] [place] [address]- 0683 Apr, [facility] [place] [facility] [address] [id number] [place] [address]- 6875 Apr, [facility] [place] [facility] [address] [id number], [place] [address]- 2993 Apr, [facility] [place] [facility] [address] [id number] [place] [address]- 3912 Apr, [facility] [place] [facility] [address] [id number] [place] [address]- 2863 Mar, [facility] [place] [facility] [address] [id number] [place] [address]- 5673 Mar, [facility] [place] [facility] [address] [id number] [place] [address]- 8660 Mar, [facility] [place] [facility] [address] [id number] [place] [address]- 1157 Mar, [facility] [place] [facility] [address] [id number] [place] [address]- 5376 Mar, [facility] [place] [facility] [address] [id number] [place] [address]- 8675 Mar, [facility] [place] [facility] [address] [id number] [place] [address] Mar, [facility] [place] [facility] [address] [id number] [place] [address]- 1935 Mar, [facility] [place] [facility] [address] [id number] [place] [address]- 1031 Mar, [facility] [place] [facility] [address] [id number] [place] [address]- 2784 Mar, [facility] [place] [facility] [address] [id number] [place] [address]- 5316 Mar, [facility] [place] [facility] [address] [id number], [place] [address]- 3674 Mar, [facility] [place] [facility] [address] [id number], [place] [address]- 5850 Feb, [facility] [place] [facility] [address] [id number], [place] [address]- 6708 Jan, [facility] [place] [facility] [address] [id number] [place] [address]- 4314 Jan, [facility] [place] [facility] [address] [id number] [place] [address]- 6988 Jan, [facility] [place] [facility] [address] [id number] [place] [address]- 3109 Jan, [facility] [place] [facility] [address] [id number] [place] [address]- 7345 Jan, [facility] [address] [id number] [place] [address]- 2121 Dec, [facility] [place] [facility] [address] [id number] [place] [address]- 3244 Dec, [facility] [address] [id number] [place] [address]- 7538 Nov, [facility] [place] [facility] [address] [id number] [place] [address]- 7664 Nov, [facility] [address] [id number] [place] [address]- 0032 Nov, [facility] [place] [facility] [address] [id number] [place] [address]- 8707 October, [facility] [address] [id number] [place] [address]- 6950 October, [facility] [address] [id number] [place] [address]- 8797 October, [facility] [address] [id number] [place] [address]- 4526 October, [facility] [address] [id number] [place] [address]- 8427 October, [facility] [address] [id number] [place] [address]- 4434 October, [facility] [place] [facility] [address] [id number] [place] [address]- 0470 October, [facility] [place] [facility] [address] [id number] [place] [address]- 6721 Sep, [facility] [place] [facility] [address] [id number] [place] [address]- 5750 Sep, [facility] [place] [facility] [address] [id number] [place] [address]- 7075 Sep, [facility] [place] [facility] [address] [id number] [place] [address]- 1575 25 Sep, 2011 [facility] [place] [facility] [address] [id number] [place] [address]- 1862 24 Sep, 2011 [facility] [place] [facility] [address] [id number] [place] [address]- 7206 19 Sep, 2011 [facility] [place] [facility] [address] [id number] [place] [address]- 1956 17 Sep, 2011 [facility] [place] [facility] [address] [id number] [place] [address]- 1292 16 Sep, 2011 [facility] [place] [facility] [address] [id number] [place] [address]- 0195 16 Sep, 2011 [facility] [place] [facility] [address] [id number] [place] [address]- 6266 14 Sep, 2011 [facility] [place] [facility] [address] [id number] [place] [address]- 2490 13 Sep, 2011 [facility] [place] [facility] [address] [id number] [place] [address]- 9689 10 Sep, 2011 [facility] [place] [facility] [address] [id number] [place] [address]- 5987 09 Sep, 2011 [facility] [place] [facility] [address] [id number] [place] [address]- 1575 27 Aug, 2011 [facility] [place] [facility] [address] [id number] [place] [address]- 1595 12 Aug, 2011 [facility] [place] [facility] [address] [id number] [place] [address]- 6143 08 Aug, 2011 [facility] [place] [facility] [address] [id number] [place] [address]- 2764 06 Aug, 2011 [facility] [place] [facility] [address] [id number] [place] [address]- 7867 28 Jul, 2011 [facility] [place] [facility] [address] [id number] [place] [address]- 0471 22 Jul, 2011 [facility] [address] [id number] [place] [address]- 2772 16 Jul, 2011 [facility] [address] [id number] [place] [address]- 7856 15 Jul, 2011 [facility] [address] [id number] [place] [address]- 3836 14 Jul, 2011 [facility] [address] [id number] [place] [address]- 8726 10 Jul, 2011 [facility] [address] [id number] [place] [address]- 1133 30 Jun, 2011 [facility] [address] [id number] [place] [address]- 8362 Jun, [facility] [address] [id number] [place] [address]- 0063 Jun, [facility] [address] [id number] [place] [address]- 8305 Jun, [facility] [address] [facility] [id number] [place] [address]- 6070 Jun, [facility] [address] [facility] [id number] [place] [address]- 4395 May, [facility] [address] [id number] [place] [address]- 2508 May, [facility] [place] [facility] [address] [id number] [place] [address]- 4447 May, [facility] [place] [facility] [address] [id number] [place] [address]- 7191 14 May, 2011 [facility] [place] [facility] [address] [id number] [place] [address]- 8999 12 May, 2011 [facility] [place] [facility] [address] [facility] [id number] [place] [address]- 0763 07 May, 2011 [facility] [place] [facility] [address] [id number] [place] [address]- 0791 05 May, 2011 [facility] [place] [facility] [address] [id number] [place] [address]- 9812 Apr, [facility] [place] [facility] [address] [id number] [place] [address]- 9553 Apr, [facility] [place] [facility] [address] [id number] [place] [address]- 9567 Apr, [facility] [place] [facility] [address] [id number] [place] [address]- 3574 Apr, [facility] [place] [facility] [address] [id number] [place] [address]- 3956 Apr, [facility] [place] [facility] [address] [id number] [place] [address]- 1873 Apr, [facility] [place] [facility] [address] [id number] [place] [address]- 5736 Mar, [facility] [place] [facility] [address] [id number] [place] [address]- 2981 Mar, [facility] [place] [facility] [address] [id number] [place] [address]- 6958 Mar, [facility] [place] [facility] [address] [id number] [place] [address]- 3483 Mar, [facility] [place] [facility] [address] [id number] [place] [address]- 9789 Jan, [facility] [place] [facility] [address] [id number] [place] [address]- 3332 Dec, [facility] [place] [facility] [address] [id number] [place] [address]- 1734 Dec, [facility] [place] [facility] [address] [id number] [place] [address]- 3406 October, [facility] [place] [facility] [address] [id number] [place] [address]- 9822 20 Sep, 2010 [facility] [place] [facility] [address] [id number] [place] [address]- 6081 14 Sep, 2010 [facility] [place] [facility] [address] [id number] [place] [address]- 0396 17 Jul, 2010 [facility] [place] [facility] [address] [id number] [place] [address]- 2086 16 Jul, 2010 [facility] [place] [facility] [address] [id number] [place] [address]- 8998 31 May, 2010 [facility] [place] [facility] [address] [id number] [place] [address]- 5352 27 May, 2010 [facility] [place] [facility] [address] [id number] [place] [address]- 5327 May, [facility] [place] [facility] [address] [id number] [place] [address]- 9161 May, [facility] [place] [facility] [address] [id number] [place] [address]- 6455 Apr, [facility] [place] [facility] [address] [id number] [place] [address]- 5121 Apr, [facility] [place] [facility] [address] [id number] [place] [address]- 4565 Apr, [facility] [place] [facility] [address] [id number], [place] [address]- 5842 Apr, [facility] [place] [facility] [address] [id number], [place] [address]- 9130 Apr, [facility] [place] [facility] [address] [id number] [place] [address]- 5465 Mar, [facility] [place] [facility] [address] [id number], [place] [address]- 7632 14 Mar, 2010 [facility] [place] [facility] [address] [id number] [place] [address]- 9451 13 Mar, 2010 [facility] [place] [facility] [id number] [address] Mar, [facility] [id number] 1209 Jan, [facility] [id number], [place] [address]- 5886 Dec, [facility] [id number] [address] 2375 Sep, [facility] [id number] 9969 May, [facility] [id number] [place] [address]- 6922 May, [facility] [id number] 7512 May, [facility] [id number] [place] [address]- 7661 Apr, [facility] [id number], [place] [address]- 6872 Apr, [facility] [id number], [place] [address]- 3952 Apr, [facility] [id number], [place] [address]- 1513 Apr, [facility] [id number], [place] [address]- 5677 Apr, [facility] [id number], [place] [address]- 0265 Mar, [facility] [id number] [address]- 3059 Mar, [facility] [id number], [place] [address]- 1496 Jul, IMMUNIZATIONS No Known Immunizations SOCIAL HISTORY Never Assessed REASON FOR VISIT Abdominal pain PLAN OF CARE VITAL SIGNS MEDICATIONS Unknown [...] 08/2017 Surgical History nephrectomy 03/2017 Hospitalization History Cellulitis-[facility] 12/20/15 Hospital[facility]- Abd pain 03/07/2017 Hospital[facility]- Abd pain 03/14/2017 Hospitalization [facility] [place]- No bowel movement, rash 04/13/2017 Hospitalization History [facility]- Abd pain r/t kidney surgery on 04/17/2017 Hospitalization History [facility]- Abd pain r/t kidney surgery on 04/18/2017 Hospitalization History [facility] [place]- Lower abd pain 04/30/2017 Hospitalization History [facility] [place]- Cannot urinate 05/30/2017 Hospitalization History [facility] [place]- Pancreatitis Sx 06/29/2017 Hospitalization History [facility] [place]- Stomach pain 07/22/2017 Hospitalization History [facility] [place]- Left side pain 08/12/2017 Hospitalization History [facility] [place]- Incision site infection 08/30/2017 Hospitalization History [facility] [place]- Post Op Seroma/Hematoma Left Abdomen. Discharged 09/04/17- Dr Daniel 09/02/2017 Hospitalization History [facility] [place]- Right shoulder and back pain 2017
--- OUTSIDE RECORDS SUMMARY | 2017-12-18 01:33 | XMS REPORT ---
Author Author BHUPENDRA Ford Organization [facility] Address [address] [place] [address] Care Team Providers Care Warehouse Shipping Associate Name Role Phone Liliana BHUPENDRA Unavailable PROBLEMS Type Condition ICD9-CM Code XHS32-AP Code Onset Dates Condition Status SNOMED Code Problem Asthma J45.909 Active 776962006 Problem Atelectasis J98.11 Active 97353037 Problem Polydipsia R63.1 Active 86917042 Problem Chronic fatigue R53.82 Active 40547824 Problem Moderate episode of recurrent major depressive disorder F33.1 Active 847152109 Problem Generalized social phobia F40.11 Active 64983298 Problem Trichotillomania F63.3 Active 41596114 Problem Restless leg syndrome G25.81 Active 08994526 Problem Chronic post-traumatic stress disorder (PTSD) F43.12 Active 466475047 Problem History of renal cell carcinoma Z85.528 Active 298718728 Problem Nodule of left lung R91.1 Active 931309155 Problem Chronic tension-type headache, intractable G44.221 Active 467895057 Problem Hyperlipidemia, mixed E78.2 Active 294016468 Problem Hirsuties L68.0 Active 983997604 Problem Morbid (severe) obesity due to excess calories E66.01 Active 626442495 Problem FH: polycystic ovary Z84.2 Active 525694033 Problem Chronic pancreatitis K86.1 Active 715484548 ALLERGIES Substance Reaction Event Type Date Status Penicillin V Potassium Unknown Drug Allergy May, Active Fentanyl Unknown Drug Allergy May, Active Demerol Unknown Drug Allergy May, Active ENCOUNTERS Encounter Location Date Diagnosis [facility] [address] [facility] [id number] [address] Feb, [facility] [address] [facility] [id number] [address] Dec, [place] [address] [address] Nov, Nodule of left lung R91.1 [place] [address] [place] [id number] [place] [address] 78829- 3190 Nov, Medicare annual wellness visit, initial Z00.00 [...] adult Z68.42 and Encounter for immunization Z23 [place] [id number] [place] [address] 40867- 6217 October, [place] [id number] [place] [address] 77878- 9396 October, Nodule of left lung R91.1 [place] [id number] [place] [address] 53526- 8241 October, Nodule of left lung R91.1 [place] [address] [place] [id number] [place] [address] 58574- 3247 October, Recurrent major depressive disorder, in partial remission F33.41 ; Restless leg syndrome G25.81 ; Generalized social phobia F40.11 ; Chronic post-traumatic stress disorder (PTSD) F43.12 ; BMI 45.0-49.9, adult Z68.42 and Trichotillomania F63.3 [place] [id number] [place] [address] 56542- 8939 October, [place] [id number] [place] [address] 13950- 8716 Sep, Chronic fatigue R53.82 and BMI 45.0-49.9, adult Z68.42 [address] [place] [address] 30134- 1429 Aug, [facility] [address] [place] [id number] [place] [address] 64873- 3106 Jul, Restless leg syndrome G25.81 and B12 deficiency E53.8 [facility] [address] [place] [id number] [place] [address] 80527- 0929 Jul, [place] [address] 34744- 1235 Jul, [place] [address] [place] [id number] [place] [address] 89405- 5209 Jun, [place] [address] [place] [id number] [place] [address] 57769- 9533 Jun, Fatigue, unspecified type R53.83 ; History of renal cell carcinoma Z85.528 ; Chronic pancreatitis K86.1 ; Restless leg syndrome G25.81 ; Dark urine R82.99 and BMI 45.0-49.9, adult Z68.42 [place] [address] [place] [id number] [place] [address] 48631- 3682 Jun, [place] [address] [place] [id number] [place] [address] 76171- 4689 Jun, [place] [address] [place] [id number] [place] [address] 11571- 8986 Jun, [place] [address] [place] [id number] [place] [address] 58647- 1800 Jun, [facility] [address] [place] [id number] [place] [address] 73537- 9682 May, Chronic post-traumatic stress disorder (PTSD) F43.12 ; Moderate episode of recurrent major depressive disorder F33.1 ; Trichotillomania F63.3 and Generalized social phobia F40.11 [place] [address] [place] [id number] [place] [address] 48283- 2456 May, [place] [address] [address]- 1281 14 May, 2017 Chronic post-traumatic stress disorder (PTSD) F43.12 ; Moderate episode of recurrent major depressive disorder F33.1 ; Trichotillomania F63.3 and Generalized social phobia F40.11 [place] [address] [address] 235[address] 07 May, 2017 Hyperlipidemia, mixed E78.2 ; Morbid (severe) obesity due to excess calories E66.01 ; Chronic post-traumatic stress disorder (PTSD) F43.12 ; Moderate episode of recurrent major depressive disorder F33.1 ; Trichotillomania F63.3 and Generalized social phobia F40.11 [place] [address] [address]- 5417 30 Apr, 2017 [place] [id number] [place] [address] 64182- 2419 29 Apr, 2017 Hyperlipidemia, mixed E78.2 ; Morbid (severe) obesity due to excess calories E66.01 ; Chronic post-traumatic stress disorder (PTSD) F43.12 ; Moderate episode of recurrent major depressive disorder F33.1 ; Trichotillomania F63.3 and Generalized social phobia F40.11 [place] [address] [address]- 9984 Apr, Trichotillomania F63.3 ; Generalized social phobia F40.11 ; Chronic post-traumatic stress disorder (PTSD) F43.12 and Moderate episode of recurrent major depressive disorder F33.1 [place] [address] [address]- 6697 Apr, [place] [address] [place] [id number] [place] [address] 07216- 1449 Apr, [place] [address] [address]- 2956 Mar, Moderate episode of recurrent major depressive disorder F33.1 ; Trichotillomania F63.3 ; Chronic post-traumatic stress disorder (PTSD) F43.12 ; Generalized social phobia F40.11 and Restless leg syndrome G25.81 [facility] [address] [place] [id number] [place] [address] 24031- 6573 Mar, [facility] [address] [place] [id number] [place] [address] 31609- 2319 Mar, [facility] [address] [place] [id number] [place] [address] 30841- 0501 Feb, Left kidney mass N28.89 [facility] [address] [place] [id number] [place] [address] 96259- 9120 Jan, [facility] [address] 73905- 0550 Dec, Polydipsia R63.1 ; Chronic pancreatitis K86.1 and Fatigue, unspecified type R53.83 [place] [address] [place] [id number] [place] [address] 47709- 4064 Nov, [facility] [address] [place] [id number] [place] [address] 35064- 7857 Nov, [place] [address] [place] [id number] [place] [address] 48427- 3665 Nov, Headache around the eyes R51 [facility] [address] [place] [id number] [place] [address] 63652- 9224 Nov, [facility] [address] [place] [id number] [place] [address] 32473- 8770 October, STD exposure Z20.2 [facility] [address] [place] [id number] [place] [address] 50262- 6001 October, STD exposure Z20.2 [facility] [address] [place] [id number] [place] [address] 70528- 7738 October, Chronic post-traumatic stress disorder (PTSD) F43.12 ; Generalized social phobia F40.11 ; Trichotillomania F63.3 and Restless leg syndrome G25.81 [place] [address] [address]- 9452 October, [place] [address] [place] [id number] [place] [address] 80527- 6166 Sep, [facility] [address] [place] [id number] [place] [address] 51645- 3913 Aug, [place] [address] 76398- 3564 Aug, [place] [address] [place] [id number] [place] [address] 79182- 7487 Aug, Neck mass R22.1 [place] [address] 08316- 0904 Aug, Atelectasis J98.11 [place] [address] [place] [id number] [place] [address] 63228- 3471 28 Jul, 2016 Hyperlipidemia, mixed E78.2 ; Atypical pneumonia J18.9 and Neck mass R22.1 [place] [address] [place] [id number] [place] [address] 88340- 2193 15 Jul, 2016 Hemoptysis R04.2 [place] [address] [place] [id number] [place] [address] 98996- 9355 08 Jul, 2016 Acute non-recurrent pansinusitis J01.40 ; Hemoptysis R04.2 ; Polydipsia R63.1 and Malaise R53.81 [facility] [address] [address] May, Other viral agents as the cause of diseases classified elsewhere B97.89 and Acute upper respiratory infection, unspecified J06.9 [facility] IN [facility] [address] [place] [id number] [place] [address] 92514 -3458 Mar, Nausea R11.0 [facility] [place] [id number] [place] [address] 31169 -2529 28 Harshad, 2016 Hives L50.9 [place] [address] [address]- 5607 14 Dec, 2015 [facility] [place] [address] [place] [id number] [place] [address] 09457 -9772 10 Dec, 2015 Cutaneous abscess of limb, unspecified L02.419 ; Cellulitis of unspecified part of limb L03.119 ; Encounter for incision and drainage procedure Z01.89 and Encounter for recheck of abscess following incision and drainage Z09 [facility] [place] [address] [address]5660 09 Dec, 2015 Abscess of leg, right L02.415 [place] [address] [place] [id number] [place] [address] 03174- 2775 08 Dec, 2015 Cellulitis of unspecified part of limb L03.119 and Cutaneous abscess of limb, unspecified L02.419 [place] [address] [place] [id number] [place] [address] 45993- 6009 Dec, [place] [address] [place] [id number] [place] [address] 82088- 6995 Dec, [facility] [place] [id number] [place] [address] 02439 -5117 Aug, [place] [id number] [place] [address] 30426- 1849 Aug, [facility] [place] [id number] [place] [address] 27369 -5429 04 Jul, 2015 Pain in unspecified wrist M25.539 and Back pain, thoracic M54.6 [facility] IN [place] [address] [place] [address] 58876 -5891 Jun, Strain of right wrist, initial encounter S66.911A [place] [address] [address]- 2808 11 Jun, 2015 Chronic pancreatitis, unspecified pancreatitis type K86.1 ; Hirsuties L68.0 ; Morbid (severe) obesity due to excess calories E66.01 ; Chronic pancreatitis K86.1 and Asthma J45.909 [facility] [address] [place] [id number] [place] [address] 30678- 3131 May, [facility] [address] 66460- 8447 May, Hyperlipidemia, mixed E78.2 and Muscle spasm of back M62.830 [facility] [address] 80455- 8836 Apr, [facility] [address] 61243- 3359 Apr, Torticollis M43.6 [facility] [address] 76994- 8455 Apr, Right-sided thoracic back pain M54.6 [facility] [address] 37246- 2152 Mar, Rash R21 [facility] [address] 69597- 3857 Mar, [facility] [address] 68097- 0050 Jan, [facility] [address] [place] [id number] [place] [address] 23216- 5348 Dec, [facility] [address] 29058- 5064 Dec, Urinary frequency 788.41 and Nocturia more than twice per night 788.43 [facility] [address] [place] [id number] [place] [address] 94659- 9023 Nov, [facility] [address] 94846- 3137 Nov, [facility] [address] [place] [id number] [place] [address] 49919- 0719 Nov, Abdominal pain 789.00 [place] [address] [facility] [id number] [address]- 4426 October, TDAP DX V06.1 [facility] [address] [place] [id number] [address]- 4605 October, [facility] [address] [address]- 8191 October, Disturbance of skin sensation 782.0 ; Wrist pain, right 719.43 ; Hyperlipidemia 272.4 and Skin lesion of face 709.9 [facility] [address] [facility] [id number] [address]- 6025 Sep, [facility] [address] [place] [id number] [address]- 3700 Sep, [facility] [address] [address]- 8828 Aug, [facility] [address] [address]- 1327 Aug, [facility] [address] [address]- 4230 Aug, [facility] [address] [address]- 5794 23 Aug, 2014 [facility] [address] [address]- 5695 16 Aug, 2014 [facility] [address] [address]- 3080 16 Aug, 2014 [facility] [address] [facility] [id number] [place] [address]- 8763 14 Aug, 2014 [facility] [address] [facility] [id number] [place] [address]- 5824 14 Aug, 2014 [facility] [address] [place] [id number] [address]- 7982 11 Aug, 2014 [facility] [address] [address]- 2877 Aug, [facility] [place] [facility] [address] [id number] [place] [address]- 5372 Aug, [facility] [place] [facility] [address] [id number] [place] [address]- 8765 Aug, [facility] [place] [facility] [address] [id number] [place] [address]- 9038 Aug, [facility] [place] [facility] [address] [id number] [place] [address]- 1694 Aug, [facility] [place] [facility] [address] [id number] [place] [address]- 6050 Jul, [facility] [place] [facility] [address] [id number] [place] [address]- 7401 Jul, [facility] [place] [facility] [address] [id number] [place] [address]- 8892 Jul, [facility] [place] [facility] [address] [id number] [place] [address]- 4806 Jul, [facility] [place] [facility] [address] [id number] [place] [address]- 1233 Jul, [facility] [place] [facility] [address] [facility] [id number] [place] [address]- 7592 Jul, [facility] [place] [facility] [address] [id number] [place] [address]- 6019 Jun, [facility] [place] [facility] [address] [id number] [place] [address]- 3530 Jun, [facility] [place] [facility] [address] [id number] [place] [address]- 6785 Jun, [facility] [place] [facility] [address] [id number] [place] [address]- 8861 Jun, [facility] [place] [facility] [address] [facility] [id number] [place] [address]- 4610 Jun, [facility] [place] [facility] [address] [id number] [place] [address]- 1578 19 Jun, 2014 [facility] [place] [facility] [address] [id number] [place] [address]- 4222 15 Jun, 2014 [facility] [place] [facility] [address] [id number] [place] [address]- 1007 15 Jun, 2014 [facility] [place] [facility] [address] [id number] [place] [address]- 7099 May, [facility] [place] [facility] [address] [id number] [place] [address]- 8384 May, [facility] [place] [facility] [address] [id number] [place] [address]- 6946 May, [facility] [place] [facility] [address] [id number] [place] [address]- 8188 May, [facility] [place] [facility] [address] [id number] [place] [address]- 1295 May, [facility] [place] [facility] [address] [id number] [place] [address]- 6469 May, [facility] [place] [facility] [address] [id number] [place] [address]- 6816 May, [facility] [place] [facility] [address] [id number] [place] [address]- 5071 May, [facility] [place] [facility] [address] [id number] [place] [address]- 8989 May, [facility] [place] [facility] [address] [id number] [place] [address]- 6035 May, [facility] [place] [facility] [address] [id number] [place]305 May, [facility] [place] [facility] [address] [id number] [place] [address]- 1011 May, [facility] [place] [facility] [address] [id number] [address]- 8785 Apr, [facility] [place] [facility] [address] [id number] [place] [address]- 3213 Apr, [facility] [place] [facility] [address] [id number] [place] [address]- 9105 Apr, [facility] [place] [facility] [address] [id number] [place] [address]- 9945 Apr, [facility] [place] [facility] [address] [id number] [place] [address]- 2343 Apr, [facility] [place] [facility] [address] [id number] [place] [address]- 0724 Apr, [facility] [place] [facility] [address] [id number] [place] [address]- 2190 Apr, [facility] [place] [facility] [address] [id number] [place] [address]- 0040 Apr, [facility] [place] [facility] [address] [id number] [place] [address]- 7712 Apr, [facility] [place] [facility] [address] [id number] [place] [address]- 7542 Apr, [facility] [place] [facility] [address] [id number] [place] [address]- 1443 Apr, [facility] [place] [facility] [address] [id number] [address]- 0343 Apr, [facility] [place] [facility] [address] [id number] [place] [address]- 1704 Mar, [facility] [place] [facility] [address] [id number] [place] [address]- 5870 Mar, [facility] [place] [facility] [address] [id number] [place] [address]- 5545 Mar, [facility] [place] [facility] [address] [id number] [place] [address]- 9648 Mar, [facility] [place] [facility] [address] [id number] [place] [address]- 1111 10 Feb, 2013 [facility] [place] [facility] [address] [id number] [place] [address]- 9820 10 Feb, 2013 [facility] [place] [facility] [address] [id number] [place] [address]- 6656 05 Feb, 2013 [facility] [place] [facility] [address] [id number] [place] [address]- 0155 05 Feb, 2013 [facility] [place] [facility] [address] [id number] [place] [address]- 0898 05 Feb, 2013 [facility] [place] [facility] [address] [id number] [place] [address]- 3296 Feb, 2013 [facility] [place] [facility] [address] [id number] [place] [address]- 1750 Jan, [facility] [place] [facility] [address] [id number] [place] [address]- 2770 Jan, [facility] [place] [facility] [address] [id number] [place] [address]- 4279 Jan, [facility] [place] [facility] [address] [id number] [place] [address]- 7687 Jan, [facility] [place] [facility] [address] [id number] [place] [address]- 6095 Jan, [facility] [place] [facility] [address] [id number] [place] [address]- 2311 Jan, [facility] [place] [facility] [address] [id number] [place] [address]- 3635 Jan, [facility] [place] [facility] [address] [id number] [place] [address]- 7284 Jan, [facility] [place] [facility] [address] [id number] [place] [address]- 7524 Jan, [facility] [place] [facility] [address] [id number] [place] [address]- 1103 Jan, [facility] [place] [facility] [address] [id number] [place] [address]- 8661 Jan, [facility] [place] [facility] [address] [id number] [place] [address]- 4967 Jan, [facility] [place] [facility] [address] [id number] [place] [address]- 8897 Jan, [facility] [place] [facility] [address] [id number] [place] [address]- 3113 Jan, [facility] [place] [facility] [address] [id number] [place] [address]- 7970 Dec, [facility] [place] [facility] [address] [id number] [place] [address]- 1220 Dec, [facility] [place] [facility] [address] [id number] [place] [address] Dec, [facility] [place] [facility] [address] [id number] [place] [address] Dec, [facility] [place] [facility] [address] [id number] [place] [address] Nov, [facility] [place] [facility] [address] [id number] [place] [address] Nov, [facility] [place] [facility] [address] [id number] [place] [address] Nov, [facility] [place] [facility] [address] [id number] [place] [address] Nov, [facility] [place] [facility] [address] [id number] [place] [address] Nov, [facility] [place] [facility] [address] [id number] [place] [address] October, [facility] [place] [facility] [address] [id number] [place] [address] October, [facility] [place] [facility] [address] [id number] [place] [address] October, [facility] [place] [facility] [address] [id number] [place] [address] October, [facility] [place] [facility] [address] [id number] [place] [address] October, [facility] [place] [facility] [address] [id number] [place] [address] October, [facility] [place] [facility] [address] [id number] [place] [address] October, [facility] [place] [facility] [address] [id number] [place] [address] October, [facility] [place] [facility] [address] [id number] [place] [address] October, [facility] [place] [facility] [address] [id number] [place] [address] October, [facility] [place] [facility] [address] [id number] [place] [address] October, [facility] [place] [facility] [address] [id number] [place] [address] October, [facility] [place] [facility] [address] [id number] [place] [address] October, [facility] [place] [facility] [address] [id number] [place] [address] October, [facility] [place] [facility] [address] [id number] [place] [address] Sep, [facility] [place] [facility] [address] [id number] [place] [address] Sep, [facility] [place] [facility] [address] [id number] [place] [address] Sep, [facility] [place] [facility] [address] [id number] [place] [address] Sep, [facility] [place] [facility] [address] [id number] [place] [address] Sep, [facility] [place] [facility] [address] [id number] [place] [address] Sep, [facility] [place] [facility] [address] [id number] [place] [address] Sep, [facility] [place] [facility] [address] [id number] [place] [address] Sep, [facility] [place] [facility] [address] [id number] [place] [address] Sep, [facility] [place] [facility] [address] [id number] [place] [address] Sep, [facility] [place] [facility] [address] [id number] [place] [address] Sep, [facility] [place] [facility] [address] [id number] [place] [address] Sep, [facility] [place] [facility] [address] [id number] [place] [address] Sep, [facility] [place] [facility] [address] [id number] [place] [address] Sep, [facility] [facility] [place] [facility] [address] [id number] [place] [address] Sep, [facility] [place] [facility] [address] [id number] [place] [address] 1992 Aug, [facility] [place] [facility] [address] [id number] [place] [address] 76[address] Aug, [facility] [place] [facility] [address] [id number] [place] [address] Aug, [facility] [place] [facility] [address] [id number] [place] [address] Aug, [facility] [place] [facility] [address] [id number] [place] [address] 5779 10 Jul, 2013 [facility] [place] [facility] [address] [id number] [place] [address] 4323 Jul, [facility] [place] [facility] [address] [id number] [place] [address] Jul, [facility] [place] [facility] [address] [id number] [place] [address] 4693 Jul, [facility] [place] [facility] [address] [id number] [place] [address] 8006 Jun, [facility] [place] [facility] [address] [id number] [place] [address] 6117 Jun, [facility] [place] [facility] [address] [id number] [place] [address]- 2602 Jun, [facility] [place] [facility] [address] [id number] [place] [address] 2490 Jun, [facility] [place] [facility] [address] [id number] [place] [address] 4842 Jun, [facility] [place] [facility] [address] [id number] [place] [address]- 0484 Jun, [facility] [place] [facility] [address] [id number] [place] [address] 7694 Jun, [facility] [place] [facility] [address] [id number] [address] Jun, [facility] [place] [facility] [address] [id number] [place] [address] 3401 May, [facility] [place] [facility] [address] [id number] [place] [address]- 0268 May, [facility] [place] [facility] [address] [id number] [place] [address]- 5627 May, [facility] [place] [facility] [address] [id number] [place] [address] 3821 May, [facility] [place] [facility] [address] [id number] [place] [address]- 9914 17 May, 2012 [facility] [address] [id number] [place] [id number] 17 May, 2013 [facility] [address] [id number] [place] [address] 17 May, 2013 [facility] [address] [id number] [place] [address]- 0741 17 May, 2013 [facility] [address] [id number] [place] 16 May, 2013 [facility] [address] [id number] [place] [address]- 6100 16 May, 2013 [facility] [address] [id number] [place] [address] 14 May, 2013 [facility] [address] [id number] [place] [address]- 9665 14 May, 2013 [facility] [address] [id number] [place] [address]- 3589 13 May, 2013 [facility] [address] [id number] [place] [address]- 3190 13 May, 2013 [facility] [address] [id number] [place] [address] 3209 12 May, 2013 [facility] [address] [id number] [place] [address]- 9243 12 May, 2013 [facility] [address] [id number] [place] [address]- 5274 11 May, 2013 [facility] [address] [id number] [place] [address]- 5359 11 May, 2013 [facility] [address] [id number] [place] [address]- 7945 26 Apr, 2013 [facility] [address] [id number] [place] [address]- 8008 Apr, [facility] [address] [id number] [place] [address] 1346 Apr, [facility] [place] [facility] [address] [id number] [place] [address]- 1498 Apr, [facility] [address] [id number] [place] [address]- 8164 Aug, [facility] [place] [facility] [address] [id number] [place] [address]- 1259 Aug, [facility] [address] [id number] [place] [address] Aug, [facility] [place] [facility] [address] [id number] [place] [address]- 0965 Aug, [facility] [place] [facility] [address] [id number] [place] [address]- 9897 Jul, [facility] [address] [id number] [place] [address]- 2915 Jun, [facility] [place] [facility] [address] [id number] [place] [address]- 3632 Jun, [facility] [address] [id number] [place] [address]- 5294 Jun, [facility] [place] [facility] [address] [id number] [place] [address]- 8825 Jun, [facility] [place] [facility] [address] [id number] [place] [address] 3981 May, [facility] [place] [facility] [address] [id number] [place] [address]- 4727 May, [facility] [place] [facility] [address] [id number] [place] [address]- 8026 May, [facility] [place] [facility] [address] [id number] [place] [address]- 2561 May, [facility] [place] [facility] [address] [id number] [place] [address] 5000 May, [facility] [place] [facility] [address] [id number] [place] [address]- 9106 May, [facility] [place] [facility] [address] [id number] [address]- 3544 May, [facility] [place] [facility] [address] [id number] [address]- 6094 Apr, [facility] [place] [facility] [address] [id number] [place] [address]- 5851 Apr, [facility] [place] [facility] [address] [id number] [place] [address], [place] [address]- 9426 Apr, [facility] [place] [facility] [address] [id number] [place] [address]- 5534 Apr, [facility] [place] [facility] [address] [facility] [id number] [place] [address]- 4414 Apr, [facility] [place] [facility] [address] [id number] [place] [address]- 8977 Apr, [facility] [place] [facility] [address] [id number] [place] [address]- 2574 Apr, [facility] [place] [facility] [address] [facility] [id number] [place] [address]- 8070 Mar, [facility] [place] [facility] [address] [id number] [place] [address]- 3858 Mar, [facility] [place] [facility] [address] [id number] [place] [address]- 2985 Mar, [facility] [place] [facility] [address] [id number] [place] [address]- 8378 Mar, [facility] [place] [facility] [address] [facility] [id number] [place] [address]- 8151 Mar, [facility] [place] [facility] [address] [facility] [id number] [place] [address]- 6393 Mar, [facility] [place] [facility] [address] [id number] [place] [address]- 0851 Mar, [facility] [place] [facility] [address] [id number] [place] [address]- 5036 Mar, [facility] [place] [facility] [address] [id number] [place] [address]- 6846 Mar, [facility] [place] [facility] [address] [id number] [place] [address]- 2676 Mar, [facility] [place] [facility] [address] [id number] [place] [address]- 3001 Mar, [facility] [place] [facility] [address] [id number] [place] [address]- 1878 Mar, [facility] [place] [facility] [address] [id number] [place] [address]- 7170 Feb, [facility] [place] [facility] [address] [id number] [place] [address]- 5586 Jan, [facility] [place] [facility] [address] [id number] [place] [address]- 9951 Jan, [facility] [place] [facility] [address] [id number] [place] [address]- 8508 Jan, [facility] [place] [facility] [address] [id number] [place] [address]- 5253 Jan, [facility] [place] [facility] [address] [id number] [place] [address]- 6571 Jan, [facility] [place] [facility] [address] [id number] [place] [address]- 1202 Dec, [facility] [place] [facility] [address] [id number] [place] [address]- 0346 Dec, [facility] [place] [facility] [address] [id number] [place] [address]- 0334 Nov, [facility] [place] [facility] [address] [id number] [place] [address]- 3712 Nov, [facility] [address] [id number] [place] [address]- 3387 Nov, [facility] [place] [facility] [address] [id number] [place] [address]- 2192 October, [facility] [address] [id number] [place] [address]- 8558 October, [facility] [place] [facility] [address] [id number] [place] [address]- 7746 October, [facility] [address] [id number] [place] [address]- 3818 October, [facility] [address] [id number] [place] [address]- 1073 October, [facility] [address] [id number] [place] [address]- 0909 October, [facility] [place] [facility] [address] [id number] [place] [address]- 2562 October, [facility] [address] [id number] [place] [address]- 9248 Sep, [facility] [place] [facility] [address] [id number] [place] [address]- 7877 Sep, [facility] [place] [facility] [address] [id number] [place] [address]- 4087 Sep, [facility] [place] [facility] [address] [id number] [address]- 8089 Sep, [facility] [place] [facility] [address] [id number] [place] [address]- 0122 24 Sep, 2011 [facility] [place] [facility] [address] [id number] [place] [address]- 1528 19 Sep, 2011 [facility] [place] [facility] [address] [id number] [place] [address]- 4362 17 Sep, 2011 [facility] [place] [facility] [address] [id number] [place] [address]- 4996 16 Sep, 2011 [facility] [place] [facility] [address] [id number] [place] [address]- 3856 16 Sep, 2011 [facility] [place] [facility] [address] [id number] [place] [address] 2546 14 Sep, 2011 [facility] [place] [facility] [address] [id number] [place] [address]- 0806 13 Sep, 2011 [facility] [place] [facility] [address] [id number] [place] [address] 2546 10 Sep, 2011 [facility] [place] [facility] [address] [id number] [place] [address]- 0952 09 Sep, 2011 [facility] [place] [facility] [address] [id number] [place] [address]- 7506 27 Aug, 2011 [facility] [place] [facility] [address] [id number] [place] [address]- 6466 12 Aug, 2011 [facility] [place] [facility] [address] [id number] [place] [address]- 2712 08 Aug, 2011 [facility] [place] [facility] [address] [id number] [place] [address]- 6869 06 Aug, 2011 [facility] [place] [facility] [address] [facility] [id number] [place] [address]- 6861 28 Jul, 2011 [facility] [place] [facility] [address] [id number] [place] [address] 2546 22 Jul, 2011 [facility] [place] [facility] [address] [id number] [place] [address] 2546 16 Jul, 2011 [facility] [place] [facility] [address] [id number] [place] [address]- 2846 15 Jul, 2011 [facility] [place] [facility] [address] [id number] [place] [address]- 1586 14 Jul, 2011 [facility] [place] [facility] [address] [id number] [place] [address]- 0297 Jul, [facility] [place] [facility] [address] [id number] [place] [address]- 2576 Jun, [facility] [place] [facility] [address] [id number] [place] [address]- 3857 Jun, [facility] [place] [facility] [address] [id number] [place] [address]- 0130 Jun, [facility] [place] [facility] [address] [id number] [place] [address]- 1187 Jun, [facility] [place] [facility] [address] [id number] [place] [address]- 0673 Jun, [facility] [place] [facility] [address] [id number] [place] [address]- 8736 May, [facility] [place] [facility] [address] [id number] [place] [address]- 9000 May, [facility] [place] [facility] [address] [id number] [place] [address]- 1828 May, [facility] [place] [facility] [address] [id number] [place] [address]- 5130 May, [facility] [place] [facility] [address] [id number] [place] [address]- 5303 May, [facility] [place] [facility] [address] [id number] [place] [address]- 8167 May, [facility] [place] [facility] [address] [id number] [place] [address]- 3595 05 May, 2011 [facility] [place] [facility] [address] [id number] [place] [address]- 3908 15 Apr, 2011 [facility] [place] [facility] [address] [id number] [place] [address]- 4696 15 Apr, 2011 [facility] [place] [facility] [address] [id number] [place] [address]- 6758 Apr, [facility] [place] [facility] [address] [id number] [place] [address]- 1243 Apr, [facility] [place] [facility] [address] [id number] [place] [address]- 1077 Apr, [facility] [place] [facility] [address] [id number] [place] [address]- 4052 Apr, [facility] [place] [facility] [address] [id number] [place] [address]- 4303 Mar, [facility] [place] [facility] [address] [id number] [place] [address]- 2425 Mar, [facility] [place] [facility] [address] [id number] [place] [address]- 4569 Mar, [facility] [place] [facility] [address] [id number] [place] [address]- 2745 Mar, [facility] [place] [facility] [address] [id number] [place] [address]- 5259 Jan, [facility] [place] [facility] [address] [id number] [place] [address]- 8894 Dec, [facility] [place] [facility] [address] [id number] [place] [address]- 8375 Dec, [facility] [place] [facility] [address] [id number] [place] [address]- 6190 October, [facility] [place] [facility] [address] [id number] [place] [address]- 6661 Sep, [facility] [place] [facility] [address] [id number] [place] [address]- 6986 14 Sep, 2010 [facility] [place] [facility] [address] [id number] [place] [address]- 2452 17 Jul, 2010 [facility] [place] [facility] [address] [id number] [place] [address]- 6659 16 Jul, 2010 [facility] [place] [facility] [address] [id number] [place] [address]- 9450 May, [facility] [place] [facility] [address] [id number] [place] [address]- 7009 27 May, 2010 [facility] [place] [facility] [address] [id number] [place] [address]- 9967 08 May, 2010 [facility] [place] [facility] [address] [id number] [place] [address]- 5579 May, [facility] [place] [facility] [address] [id number] [place] [address]- 0200 Apr, [facility] [place] [facility] [address] [id number] [place] [address]- 0176 Apr, [facility] [place] [facility] [address] [id number] [place] [address]- 8774 Apr, [facility] [address] [id number] [place] [address]- 3278 Apr, [facility] [place] [facility] [address] [id number] [place] [address]- 2057 Apr, [facility] [place] [facility] [address] [id number] [place] [address]- 5277 Mar, [facility] [place] [facility] [address] [id number] [place] [address]- 6812 14 Mar, 2010 [facility] [place] [facility] [address] [id number] [place] [address]- 1979 13 Mar, 2010 [facility] [place] [facility] [address] [id number] [address]- 0162 Mar, [facility] [place] [facility] [address] [id number] [place] [address]- 4931 Jan, [facility] [place] [facility] [address] [id number] [place] [address]- 5078 15 Dec, 2009 [facility] [place] [facility] [address] [id number] [place]29 10 Sep, 2009 [facility] [place] [facility] [address] [id number] [place] [address]- 2980 May, [facility] [id number] [address]- 6944 May, [facility] [address] [facility] [id number] [place] [address]- 4066 May, [facility] [id number] [address]- 7770 Apr, [facility] [id number] [address]- 5903 Apr, [facility] [id number] [address]- 0514 Apr, [facility] [id number] [place] [address]- 2344 Apr, [facility] [id number] [place] [address] 01267- 2540 Apr, [facility] [address]65100[place] [address]- 9231 Mar, [facility] [id number] [address]- 0223 Mar, [facility] [id number] [address]- 0791 Jul, IMMUNIZATIONS No Known Immunizations SOCIAL HISTORY Never Assessed REASON FOR VISIT f/u PLAN OF CARE Activity Details Follow Up next available Reason:Depression VITAL SIGNS MEDICATIONS Medication Instructions Dosage Frequency Start Date End Date Duration Status Nac 600 600 MG Orally Once with evening meal for hair pulling 1 capsule October, Unknown Benadryl 25 MG Orally at bedtime as needed for sleep 1-2 capsule as needed Unknown Ropinirole HCl 4 mg Orally at bedtime 1 tablet Unknown Zenpep 23629 UNIT Orally 3 times a day 1 tablet 8h Unknown Estradiol 0.5 MG Orally Once a day 2 tablet by Oral route 1 time per day 24h Apr, Unknown Hydrocodone-Acetaminophen 5-325 MG Orally every 6 hrs 1 tablet as needed 6h Unknown Mupirocin 2 % Externally Three times a day 1 application to affected area 8h Unknown Doxycycline Hyclate 100 MG Orally every 12 hrs 1 capsule 12h Unknown Esoterica Regular 2 % Unknown Ibuprofen 800 MG Orally Three times a day take 1 tablet (800 mg) by oral route 3 times per day with food 8h Mar, 30 days Unknown Prozac 40 MG Orally Once a day for depression 1 capsules Unknown Ondansetron HCl 8 mg 1 tablet by Oral route every 8 hours PRN Jul, Unknown Albuterol Sulfate (2.5 MG/3ML) 0.083% Inhalation Three times a day 3 ml 8h 11 Jun, 2015 Unknown RESULTS No Results PROCEDURES Procedure Date Ordered Result Body Site Psychotherapy, patient &/family, 30 minutes, established patient May 23, 2017 INSTRUCTIONS MEDICATIONS ADMINISTERED No Known Medications [...] 08/2017 Surgical History nephrectomy 03/2017 Hospitalization History Cellulitis-[facility] 12/20/15 Hospitalization History [facility]- Abd pain 03/07/2017 Hospitalization History [facility]- Abd pain 03/14/2017 Hospitalization History [facility]- No bowel movement, rash 04/13/2017 Hospitalization History [facility]- Abd pain r/t kidney surgery on 04/17/2017 Hospitalization History [facility]- Abd pain r/t kidney surgery on 04/18/2017 Hospitalization History [facility]- Lower abd pain 04/30/2017 Hospitalization History [facility]- Cannot urinate 05/30/2017 Hospitalization History [facility]- Pancreatitis Sx 06/29/2017 Hospitalization History [facility]- Stomach pain 07/22/2017 Hospitalization History [facility]- Left side pain 08/12/2017 Hospitalization History [facility]- Incision site infection 08/30/[address] [facility]- Post Op Seroma/Hematoma Left Abdomen. Discharged 09/04/17- Dr Daniel 09/02/2017 Hospitalization History [facility]- Right shoulder and back pain 2017
--- OUTSIDE RECORDS SUMMARY | 2017-12-18 01:34 | XMS REPORT ---
Author Author AMY MARTINS Organization [facility] Address [address] [place] [address] Care Team Providers Care Home Specialist Name Role Phone LURDES MARTINSA Unavailable PROBLEMS Type Condition ICD9-CM Code SVH68-DU Code Onset Dates Condition Status SNOMED Code Problem Asthma J45.909 Active 496267620 Problem Atelectasis J98.11 Active 84962958 Problem Polydipsia R63.1 Active 43454561 Problem Chronic fatigue R53.82 Active 21575488 Problem Moderate episode of recurrent major depressive disorder F33.1 Active 934234839 Problem Generalized social phobia F40.11 Active 29041232 Problem Trichotillomania F63.3 Active 82539288 Problem Restless leg syndrome G25.81 Active 43422864 Problem Chronic post-traumatic stress disorder (PTSD) F43.12 Active 358292853 Problem History of renal cell carcinoma Z85.528 Active 536819319 Problem Nodule of left lung R91.1 Active 674845705 Problem Chronic tension-type headache, intractable G44.221 Active 446070376 Problem Hyperlipidemia, mixed E78.2 Active 637674618 Problem Hirsuties L68.0 Active 314716907 Problem Morbid (severe) obesity due to excess calories E66.01 Active 152490530 Problem FH: polycystic ovary Z84.2 Active 272772991 Problem Chronic pancreatitis K86.1 Active 572516938 ALLERGIES No Information ENCOUNTERS Encounter Location Date Diagnosis [facility] [address] [facility] [id number] [address] Feb, [facility] [address] [id number] [address] Dec, [facility] [address] [id number] [address] Nov, Acute suppurative otitis media of right ear without spontaneous rupture of tympanic membrane, recurrence not specified H66.001 and BMI 45.0-49.9, adult Z68.42 [place] [id number] [place] [address] 67083- 2279 Nov, Hyperlipidemia, mixed E78.2 [place] [address] [place] [address] 02479- 4098 Nov, [place] [id number] [place] [address] 10656- 0773 Nov, [place] [id number] [place] [address] 12551- 5153 Nov, Nodule of left lung R91.1 [place] [id number] [place] [address] 34854- 7048 Nov, Medicare annual wellness visit, initial Z00.00 [...] adult Z68.42 and Encounter for immunization Z23 [place] [address] [place] [address] 89981- 6731 October, [place] [id number] [place] [address] 80541- 4359 October, Nodule of left lung R91.1 [place] [id number] [place] [address] 46981- 1822 October, Nodule of left lung R91.1 [place] [address] [place] [address] 50185- 9649 October, Recurrent major depressive disorder, in partial remission F33.41 ; Restless leg syndrome G25.81 ; Generalized social phobia F40.11 ; Chronic post-traumatic stress disorder (PTSD) F43.12 ; BMI 45.0-49.9, adult Z68.42 and Trichotillomania F63.3 [place] [id number] [place] [address] 49823- 5702 October, [facility] [id number] [place] [address] 29756- 8863 Sep, Chronic fatigue R53.82 and BMI 45.0-49.9, adult Z68.42 [place] [id number] [place] [address] 51089- 3800 Aug, [place] [address] 55731- 0271 Jul, Restless leg syndrome G25.81 and B12 deficiency E53.8 [place] [address] [address]37- 4330 Jul, [facility] [id number] [place] [address] 42894- 9589 Jul, [place] [id number] [place] [address] 99317- 0407 Jun, [place] [id number] [place] [address] 23006- 0026 Jun, Fatigue, unspecified type R53.83 ; History of renal cell carcinoma Z85.528 ; Chronic pancreatitis K86.1 ; Restless leg syndrome G25.81 ; Dark urine R82.99 and BMI 45.0-49.9, adult Z68.42 [place] [id number] [place] [address] 21917- 5511 Jun, [place] [id number] [place] [address] 15924- 1408 Jun, [facility] [id number] [place] [address] 50625- 0593 Jun, [place] [address] [id number] [address] 1241 Jun, [place] [address] [place] [address] 60820- 5929 May, Chronic post-traumatic stress disorder (PTSD) F43.12 ; Moderate episode of recurrent major depressive disorder F33.1 ; Trichotillomania F63.3 and Generalized social phobia F40.11 [place] [id number] [place] [address] 66289- 9775 May, [place] [address] [place] [address] 48669- 0590 May, Chronic post-traumatic stress disorder (PTSD) F43.12 ; Moderate episode of recurrent major depressive disorder F33.1 ; Trichotillomania F63.3 and Generalized social phobia F40.11 [place] [address] [place] [address] 97910- 8632 May, Hyperlipidemia, mixed E78.2 ; Morbid (severe) obesity due to excess calories E66.01 ; Chronic post-traumatic stress disorder (PTSD) F43.12 ; Moderate episode of recurrent major depressive disorder F33.1 ; Trichotillomania F63.3 and Generalized social phobia F40.11 [place] [address] [address] 8[address] Apr, [place] [address] [place] [address] 82324- 9271 Apr, Hyperlipidemia, mixed E78.2 ; Morbid (severe) obesity due to excess calories E66.01 ; Chronic post-traumatic stress disorder (PTSD) F43.12 ; Moderate episode of recurrent major depressive disorder F33.1 ; Trichotillomania F63.3 and Generalized social phobia F40.11 [place] [address] [address] 2036 Apr, Trichotillomania F63.3 ; Generalized social phobia F40.11 ; Chronic post-traumatic stress disorder (PTSD) F43.12 and Moderate episode of recurrent major depressive disorder F33.1 [facility] [id number] [place] [address] 08091- 4991 Apr, [facility] [id number] [place] [address] 14133- 2819 Apr, [facility] [id number] [place] [address] 80284- 0040 Mar, Moderate episode of recurrent major depressive disorder F33.1 ; Trichotillomania F63.3 ; Chronic post-traumatic stress disorder (PTSD) F43.12 ; Generalized social phobia F40.11 and Restless leg syndrome G25.81 [facility] [address] 7[address]30- 6586 Mar, [facility] [address] 33796- 2147 Mar, [facility] [address] 16726- 1770 Feb, Left kidney mass N28.89 [facility] [id number] [place] [address] 72902- 0669 Jan, [facility] [address] 59547- 3843 Dec, Polydipsia R63.1 ; Chronic pancreatitis K86.1 and Fatigue, unspecified type R53.83 [facility] [id number] [place] [address] 35466- 0960 Nov, [facility] [id number] [place] [address] 95072- 0371 Nov, [facility] [address] 96868- 1654 Nov, Headache around the eyes R51 [facility] [id number] [place] [address] 70562- 9074 Nov, [facility] [address] 33240- 0192 October, STD exposure Z20.2 [place] [address] [place] [address] 84618- 6520 October, STD exposure Z20.2 [facility] [address] [place] [address] 68114- 2932 October, Chronic post-traumatic stress disorder (PTSD) F43.12 ; Generalized social phobia F40.11 ; Trichotillomania F63.3 and Restless leg syndrome G25.81 [place] [address] [place] [address] 69756- 0785 October, [place] [id number] [place] [address] 35417- 4954 Sep, [place] [id number] [place] [address] 68156- 2867 Aug, [place] [id number] [place] [address] 01685- 2813 Aug, [facility] [id number] [place] [address] 27881- 2499 Aug, Neck mass R22.1 [place] [id number] [place] [address] 21699- 7571 Aug, Atelectasis J98.11 [place] [id number] [place] [address] 63590- 9425 Jul, Hyperlipidemia, mixed E78.2 ; Atypical pneumonia J18.9 and Neck mass R22.1 [place] [address] [place] [address] 08311- 3807 15 Jul, 2016 Hemoptysis R04.2 [place] [id number] [place] [address] 02797- 1328 08 Jul, 2016 Acute non-recurrent pansinusitis J01.40 ; Hemoptysis R04.2 ; Polydipsia R63.1 and Malaise R53.81 [facility] [address] [address] May, Other viral agents as the cause of diseases classified elsewhere B97.89 and Acute upper respiratory infection, unspecified J06.9 [facility] [place] [id number] [place] [address] 15558 -5381 Mar, Nausea R11.0 [facility] [place] [id number] [place] [address] 98263 -1157 Dec, Hives L50.9 [place] [id number] [place] [address] 29415- 1254 Dec, [facility] [place] [id number] [place] [address] 31886 -5784 Dec, Cutaneous abscess of limb, unspecified L02.419 ; Cellulitis of unspecified part of limb L03.119 ; Encounter for incision and drainage procedure Z01.89 and Encounter for recheck of abscess following incision and drainage Z09 [facility] [place] [address] [place] [address] 61557 -5830 Dec, Abscess of leg, right L02.415 [place] [id number] [place] [address] 26861- 7501 Dec, Cellulitis of unspecified part of limb L03.119 and Cutaneous abscess of limb, unspecified L02.419 [place] [id number] [place] [address] 96183- 6809 Dec, [place] [id number] [place] [address] 91628- 6999 Dec, [facility] [place] [id number] [place] [address] 18778 -9983 Aug, [place] [id number] [place] [address] 55502- 4073 Aug, [facility] [place] [id number] [place] [address] 98820 -0069 04 Jul, 2015 Pain in unspecified wrist M25.539 and Back pain, thoracic M54.6 [facility] [id number] [place] [address] 50546 -2829 Jun, Strain of right wrist, initial encounter S66.911A [facility] [id number] [place] [address] 64272- 6553 Jun, Chronic pancreatitis, unspecified pancreatitis type K86.1 ; Hirsuties L68.0 ; Morbid (severe) obesity due to excess calories E66.01 ; Chronic pancreatitis K86.[address] [facility] [address] 65321- 4782 May, [facility] [address] 00703- 3032 May, Hyperlipidemia, mixed E78.2 and Muscle spasm of back M62.830 [facility] [id number] [place] [address] 44267- 3564 Apr, [facility] [id number] [place] [address] 44096- 5624 Apr, Torticollis M43.6 [facility] [id number] [place] [address] 09536- 1712 Apr, Right-sided thoracic back pain M54.6 [facility] [id number] [place] [address] 49748- 0450 Mar, Rash R21 [facility] [id number] [place] [address] 83941- 6505 Mar, [facility] [address] 02683- 3490 Jan, [facility] [address] 33269- 5855 Dec, [facility] [address] 66543- 2677 Dec, Urinary frequency 788.41 and Nocturia more than twice per night 788.43 [facility] [id number] [place] [address] 28027- 6620 Nov, [facility] [id number] [place] [address] 59228- 2576 Nov, [facility] [id number] [place] [address] 51680- 1425 Nov, Abdominal pain 789.00 [facility] [id number] [place] [address] 91174- 0843 October, TDAP DX V06.1 [facility] [id number] [place] [address] 90964- 5161 October, [facility] [id number] [place] [address] 15096- 2086 October, Disturbance of skin sensation 782.0 ; Wrist pain, right 719.43 ; Hyperlipidemia 272.4 and Skin lesion of face 709.9 [facility] [id number] [place] [address] 47349- 2746 Sep, [facility] [id number] [place] [address] 86794- 2442 Sep, [facility] [address] [address]- 2873 Aug, [facility] [id number] [place] [address] 81137- 0332 Aug, [facility] [address] [place] [address] 88556- 7952 Aug, [facility] [id number] [place] [address] 23166- 5082 Aug, [facility] [address] [address]- 4955 Aug, [facility] [id number] [place] [address]- 8160 16 Aug, 2014 [facility] [place] [facility] [address] [id number] [place] [address]- 4160 14 Aug, 2014 [facility] [place] [facility] [address] [id number] [place] 0225 14 Aug, 2014 [facility] [place] [facility] [address] [id number] [place] [address]- 3225 11 Aug, 2014 [facility] [place] [facility] [address] [id number] [place] [address]- 2184 11 Aug, 2014 [facility] [place] [facility] [address] [id number] [place] [address]- 0284 04 Aug, 2014 [facility] [place] [facility] [address] [id number] [place] [address]- 5577 04 Aug, 2014 [facility] [place] [facility] [address] [id number] [place] [address]- 0177 03 Aug, 2014 [facility] [place] [facility] [address] [id number] [place] [address]- 6767 Aug, [facility] [place] [facility] [address] [id number] [place] [address]- 2533 Jul, 2014 [facility] [place] [facility] [address] [id number] [place] [address]- 4350 23 Jul, 2014 [facility] [place] [facility] [address] [id number] [place] [address]- 2522 Jul, 2014 [facility] [place] [facility] [address] [id number] [place] [address]- 3412 Jul, 2014 [facility] [place] [facility] [address] [id number] [place] [address]- 9262 Jul, [facility] [place] [facility] [address] [id number] [place] [address]- 2559 04 Jul, 2014 [facility] [place] [facility] [address] [id number] [place] [address]- 8341 Jun, [facility] [place] [facility] [address] [id number] [place] [address]- 1026 Jun, [facility] [place] [facility] [address] [id number] [place] [address]- 2576 Jun, [facility] [place] [facility] [address] [id number] [place] [address]- 7758 Jun, [facility] [place] [facility] [address] [id number] [place] [address]- 4920 Jun, [facility] [place] [facility] [address] [id number] [place] [address]- 9727 Jun, [facility] [place] [facility] [address] [id number] [place] [address]- 2073 Jun, [facility] [place] [facility] [address] [id number] [place] [address]- 9315 Jun, [facility] [place] [facility] [address] [id number] [place] [address]- 0777 May, [facility] [place] [facility] [address] [id number] [place] [address]- 7716 19 May, 2014 [facility] [place] [facility] [address] [id number] [place] [address]- 5425 18 May, 2014 [facility] [place] [facility] [address] [id number] [place] [address]- 7113 18 May, 2014 [facility] [place] [facility] [address] [id number] [place] [address]- 3285 15 May, 2014 [facility] [place] [facility] [address] [id number] [place] [address]- 6527 15 May, 2014 [facility] [place] [facility] [address] [id number] [place] [address]- 2924 11 May, 2014 [facility] [place] [facility] [address] [id number] [place] [address]- 8771 11 May, 2014 [facility] [place] [facility] [address] [id number] [place] [address]- 8232 May, [facility] [place] [facility] [address] [id number] [place] [address]- 6904 May, [facility] [place] [facility] [address] [id number] [place] [address]- 2692 May, [facility] [place] [facility] [address] [id number] [place] [address]- 8712 May, [facility] [place] [facility] [address] [id number] [place] [address]- 3768 Apr, [facility] [place] [facility] [address] [id number] [place] [address]- 5153 Apr, [facility] [place] [facility] [address] [id number] [place] [address]- 4146 Apr, [facility] [place] [facility] [address] [id number] [place] [address]- 6262 Apr, [facility] [place] [facility] [address] [id number] [place] [address]- 6661 Apr, [facility] [place] [facility] [address] [id number] [place] [address]- 2577 Apr, [facility] [place] [facility] [address] [facility] [id number] [place] [address]- 3037 Apr, [facility] [place] [facility] [address] [id number] [place] [address]- 7317 Apr, [facility] [place] [facility] [address] [id number] [place] [address]- 8428 Apr, [facility] [place] [facility] [address] [id number] [place] [address]- 0664 Apr, [facility] [place] [facility] [address] [id number] [place] [address]- 1860 Apr, [facility] [place] [facility] [address] [id number] [place] [address]- 4639 Apr, [facility] [place] [facility] [address] [id number] [place] [address]- 2659 Mar, [facility] [place] [facility] [address] [id number] [place] [address]- 8036 Mar, [facility] [place] [facility] [address] [id number] [place] [address]- 4145 Mar, [facility] [place] [facility] [address] [id number] [place] [address]- 8232 Mar, [facility] [place] [facility] [address] [id number] [place] [address]- 8899 Feb, [facility] [place] [facility] [address] [id number] [place] [address]- 0003 Feb, [facility] [place] [facility] [address] [id number] [place] [address]- 5107 Feb, [facility] [place] [facility] [address] [id number] [place] [address]- 1011 Feb, [facility] [place] [facility] [address] [id number] [place] [address]- 5575 Feb, [facility] [place] [facility] [address] [id number] [place] [address]- 5513 Feb, [facility] [place] [facility] [address] [id number] [place] [address]- 2310 Jan, [facility] [place] [facility] [address] [id number] [place] [address]- 8546 Jan, [facility] [place] [facility] [address] [id number] [place] [address]- 5215 Jan, [facility] [place] [facility] [address] [id number] [place] [address]- 1178 Jan, [facility] [place] [facility] [address] [id number] [place] [address]- 5862 Jan, [facility] [place] [facility] [address] [id number] [place] [address]- 6963 Jan, [facility] [place] [facility] [address] [id number] [place] [address]- 2081 Jan, [facility] [place] [facility] [address] [id number] [place] [address]- 2594 Jan, [facility] [place] [facility] [address] [id number] [place] [address]- 9192 Jan, [facility] [place] [facility] [address] [id number] [place] [address]- 1882 Jan, [facility] [place] [facility] [address] [id number] [place] [address] Jan, [facility] [place] [facility] [address] [id number] [place] [address] Jan, [facility] [place] [facility] [address] [id number] [place] [address] Jan, [facility] [place] [facility] [address] [id number] [place] [address] Jan, [facility] [place] [facility] [address] [id number] [place] [address] Dec, [facility] [place] [facility] [address] [id number] [place] [address] Dec, [facility] [place] [facility] [address] [id number] [place] [address] Dec, [facility] [place] [facility] [address] [id number] [place] [address] Dec, [facility] [place] [facility] [address] [id number] [place] [address] Nov, [facility] [place] [facility] [address] [id number] [place] [address] Nov, [facility] [place] [facility] [address] [id number] [place] [address] Nov, [facility] [place] [facility] [address] [id number] [place] [address] Nov, [facility] [address] [id number] [place] [address] Nov, [facility] [address] [id number] [place] [address] October, [facility] [address] [id number] [place] [address] October, [facility] [address] [id number] [place] [address] October, [facility] [address] [id number] [place] [address] October, [facility] [address] [id number] [place] [address] October, [facility] [address] [id number] [place] [address] October, [facility] [address] [id number] [place] [address] October, [facility] [address] [id number] [place] [address] October, [facility] [address] [id number] [place] [address] October, [facility] [address] [id number] [place] [address]- [address] October, [facility] [address] [id number] [place] [address] October[place] [facility] [place] [facility] [address] [id number] [place] [address] October, [facility] [place] [facility] [address] [id number] [place] [address] October, [facility] [address] [id number] [place] [address] October, [facility] [place] [facility] [address] [id number] [place] [address] Sep, [facility] [place] [facility] [address] [id number] [place] [address]- [address] Sep, [facility] [place] [facility] [address] [id number] [place] [address] Sep, [facility] [place] [facility] [address] [id number] [place] [address] Sep, [facility] [place] [facility] [address] [id number] [place] [address] Sep, [facility] [place] [facility] [address] [id number] [place] [address] Sep, [facility] [place] [facility] [address] [id number] [place] [address] Sep, [facility] [place] [facility] [address] [id number] [place] [address] Sep, [facility] [place] [facility] [address] [id number] [place] [address]- [address] Sep, [facility] [place] [facility] [address] [id number] [place] [address] Sep, [facility] [place] [facility] [address] [id number] [place] [address] Sep, [facility] [place] [facility] [address] [id number] [place] [address] Sep, [facility] [place] [facility] [address] [id number] [place] [address] Sep, [facility] [place] [facility] [address] [id number] [place] [address] Sep, [facility] [place] [facility] [address] [id number] [place] [address] Sep, [facility] [place] [facility] [address] [id number] [place], [place] [address] Aug, [facility] [place] [facility] [address] [id number] [place] [address] Aug, [facility] [place] [facility] [address] [id number] [place] [address] 5811 Aug, [facility] [place] [facility] [address] [id number] [place] [address] 0694 Aug, [facility] [place] [facility] [address] [id number] [place] [address] 1877 Jul, [facility] [place] [facility] [address] [id number] [place] [address] 4085 Jul, [facility] [place] [facility] [address] [id number] [place] [address] 2540 Jul, [facility] [place] [facility] [address] [id number] [place] [address] 8597 Jul, [facility] [place] [facility] [address] [id number] [place] [address] 5697 Jun, [facility] [place] [facility] [address] [id number] [place] [address] 6229 Jun, [facility] [place] [facility] [address] [facility] [id number] [place] [address]- 0024 Jun, [facility] [place] [facility] [address] [id number] [place] [address]- 7259 Jun, [facility] [place] [facility] [address] [id number] [place] [address]- 3511 Jun, [facility] [place] [facility] [address] [id number] [place] [address]- 7359 Jun, [facility] [place] [facility] [address] [id number] [place] [address]- 3137 Jun, [facility] [place] [facility] [address] [id number] [place] [address]- 0862 Jun, [facility] [place] [facility] [address] [id number] [place] [address]- 6592 20 May, 2013 [facility] [address] [id number] [place] [address] 20 May, 2013 [facility] [address] [id number] [place] [address] 18 May, 2013 [facility] [address] [id number] [place] [address]- 8268 18 May, 2013 [facility] [address] [id number] [place] [address]- 7862 17 May, 2013 [facility] [address] [id number] [place] [id number] 17 May, 2013 [facility] [address] [id number] [place] [address]- 0290 17 May, 2013 [facility] [address] [id number] [place] [address]- 3451 17 May, 2013 [facility] [address] [id number] [place] [address]- 2294 16 May, 2013 [facility] [address] [id number] [place] [address]- 0260 16 May, 2013 [facility] [address] [id number] [place] [address]- 9555 14 May, 2013 [facility] [address] [id number] [place] [address]- 6393 14 May, 2013 [facility] [address] [id number] [place] [address]- 9697 13 May, 2013 [facility] [address] [id number] [place] [address]- 7745 13 May, 2013 [facility] [address] [id number] [place] [address] 12 May, 2013 [facility] [address] [id number] [place] [address]- 1597 May, [facility] [address] [id number] [place] [address]- 8769 May, [facility] [place] [facility] [address] [id number] [place] [address]- 2043 May, [facility] [place] [facility] [address] [id number] [place] [address]- 5040 Apr, [facility] [place] [facility] [address] [id number] [place] [address]- 3635 Apr, [facility] [place] [facility] [address] [id number] [place] [address]- 4436 Apr, [facility] [place] [facility] [address] [id number] [place] [address]- 3612 Apr, [facility] [place] [facility] [address] [id number] [place] [address]- 6035 Aug, [facility] [place] [facility] [address] [id number] [place] [address]- 6833 Aug, [facility] [place] [facility] [address] [id number] [place] [address]- 3466 Aug, [facility] [place] [facility] [address] [id number] [place] [address]- 0716 Aug, [facility] [place] [facility] [address] [id number] [place] [address]- 1107 Jul, [facility] [place] [facility] [address] [id number] [place] [address] 3348 Jun, [facility] [place] [facility] [address] [id number] [place] [address]- 9786 Jun, [facility] [place] [facility] [address] [id number] [place] [address]- 2958 Jun, [facility] [place] [facility] [address] [id number] [place] [address]- 6586 Jun, [facility] [place] [facility] [address] [id number] [place] [address]- 0472 May, [facility] [address] [id number] [place] [address]- 5086 May, [facility] [place] [facility] [address] [id number] [place] [address]- 7776 May, [facility] [address] [id number] [place] [address]- 3451 May, [facility] [place] [facility] [address] [id number] [place] [address]- 3972 May, [facility] [address] [id number] [place] [address], [place] [address]- 3466 May, [facility] [address] [facility] [id number] [place] [address]- 8091 May, [facility] [place] [facility] [address] [facility] [id number] [place] [address]- 1737 Apr, [facility] [address] [id number] [place] [address]- 6722 Apr, [facility] [place] [facility] [address] [id number] [place] [address]- 8714 Apr, [facility] [address] [facility] [id number] [place] [address]- 5154 Apr, [facility] [place] [facility] [address] [facility] [id number] [place] [address]- 8725 Apr, [facility] [place] [facility] [address] [facility] [id number] [place] [address]- 7960 Apr, [facility] [place] [facility] [address] [facility] [id number] [place] [address]- 4530 Apr, [facility] [place] [facility] [address] [facility] [id number] [place] [address]- 2721 Mar, [facility] [place] [facility] [address] [facility] [id number] [place] [address]- 8749 Mar, [facility] [place] [facility] [address] [id number] [place] [address]- 7415 Mar, [facility] [place] [facility] [address] [id number] [place] [address]- 6300 Mar, [facility] [place] [facility] [address] [id number] [place] [address]- 2148 Mar, [facility] [place] [facility] [address] [id number] [place] [address]- 4172 Mar, [facility] [place] [facility] [address] [id number] [place] [address]- 3081 Mar, [facility] [place] [facility] [address] [id number] [place] [address]- 6575 Mar, [facility] [place] [facility] [address] [id number] [place] [address]- 1102 Mar, [facility] [place] [facility] [address] [id number] [place] [address]- 6674 Mar, [facility] [place] [facility] [address] [id number] [place] [address]- 3087 Mar, [facility] [place] [facility] [address] [id number] [place] [address]- 0231 Mar, [facility] [place] [facility] [address] [facility] [id number] [place] [address]- 4599 Feb, [facility] [place] [facility] [address] [id number] [place] [address]- 4824 Jan, [facility] [place] [facility] [address] [id number] [place] [address]- 2169 Jan, [facility] [place] [facility] [address] [id number] [place] [address]- 4428 Jan, [facility] [place] [facility] [address] [facility] [id number] [place] [address]- 4689 Jan, [facility] [place] [facility] [address] [id number] [place] [address]- 6009 Jan, [facility] [address] [id number] [place] [address]- 9384 Dec, [facility] [place] [facility] [address] [id number] [place] [address]- 0212 Dec, [facility] [place] [facility] [address] [id number] [place] [address]- 3682 Nov, [facility] [place] [facility] [address] [id number] [place] [address]- 3871 Nov, [facility] [place] [facility] [address] [id number] [place] [address]- 8533 Nov, [facility] [place] [facility] [address] [id number] [place] [address]- 7937 October, [facility] [address] [id number] [place] [address]- 5310 October, [facility] [place] [facility] [address] [id number] [place] [address]- 2729 October, [facility] [address] [id number] [place] [address]- 5017 October, [facility] [place] [facility] [address] [id number] [place] [address]- 7272 October, [facility] [place] [facility] [address] [id number] [place] [address]- 7943 October, [facility] [place] [facility] [address] [id number] [place] [address]- 7283 October, [facility] [place] [facility] [address] [id number] [place] [address]- 6008 Sep, [facility] [place] [facility] [address] [id number] [place] [address]- 2744 Sep, [facility] [place] [facility] [address] [id number] [place] [address]- 9250 Sep, [facility] [place] [facility] [address] [id number] [place] [address]- 2244 25 Sep, 2011 [facility] [place] [facility] [address] [id number] [place] [address]- 9217 24 Sep, 2011 [facility] [place] [facility] [address] [id number] [place] [address]- 1426 19 Sep, 2011 [facility] [place] [facility] [address] [id number] [place] [address]- 3516 17 Sep, 2011 [facility] [place] [facility] [address] [id number] [place] [address]- 2797 16 Sep, 2011 [facility] [place] [facility] [address] [id number] [place] [address]- 8618 16 Sep, 2011 [facility] [place] [facility] [address] [id number] [place] [address]- 5491 14 Sep, 2011 [facility] [place] [facility] [address] [id number] [place] [address]- 2597 13 Sep, 2011 [facility] [place] [facility] [address] [id number] [place] [address]- 2483 10 Sep, 2011 [facility] [place] [facility] [address] [id number] [place] [address]- 3302 09 Sep, 2011 [facility] [place] [facility] [address] [id number] [place] [address]- 2419 27 Aug, 2011 [facility] [place] [facility] [address] [id number] [place] [address]- 3863 12 Aug, 2011 [facility] [place] [facility] [address] [id number] [place] [address]- 3089 08 Aug, 2011 [facility] [place] [facility] [address] [id number] [place] [address]- 9559 06 Aug, 2011 [facility] [place] [facility] [address] [id number] [place] [address]- 5406 28 Jul, 2011 [facility] [place] [facility] [address] [id number] [place] [address]- 4126 22 Jul, 2011 [facility] [address] [id number] [place] [address]- 3379 16 Jul, 2011 [facility] [place] [facility] [address] [id number] [place] [address]- 9476 15 Jul, 2011 [facility] [place] [facility] [address] [id number] [place] [address]- 4316 14 Jul, 2011 [facility] [place] [facility] [address] [id number] [place] [address]- 2703 10 Jul, 2011 [facility] [place] [facility] [address] [id number] [place] [address]- 5368 30 Jun, 2011 [facility] [place] [facility] [address] [id number] [place] [address]- 4759 Jun, [facility] [place] [facility] [address] [id number] [place] [address]- 6814 Jun, [facility] [place] [facility] [address] [id number] [place] [address]- 8486 Jun, [facility] [place] [facility] [address] [id number] [place] [address]- 1593 Jun, [facility] [place] [facility] [address] [id number] [place] [address]- 2163 May, [facility] [place] [facility] [address] [id number] [place] [address]- 8044 May, [facility] [place] [facility] [address] [id number] [place] [address]- 9816 14 May, 2011 [facility] [place] [facility] [address] [id number] [place] [address]- 0389 14 May, 2011 [facility] [place] [facility] [address] [id number] [place] [address]- 6102 12 May, 2011 [facility] [place] [facility] [address] [id number] [place] [address]- 0788 07 May, 2011 [facility] [place] [facility] [address] [id number] [place] [address]- 4145 05 May, 2011 [facility] [place] [facility] [address] [id number] [place] [address]- 7021 Apr, [facility] [place] [facility] [address] [id number] [place] [address]- 0938 Apr, [facility] [place] [facility] [address] [id number] [place] [address]- 4936 Apr, [facility] [place] [facility] [address] [id number] [place] [address]- 0061 Apr, [facility] [place] [facility] [address] [id number] [place] [address]- 2713 Apr, [facility] [place] [facility] [address] [id number] [place] [address]- 8537 Apr, [facility] [place] [facility] [address] [id number] [place] [address]- 0545 Mar, [facility] [place] [facility] [address] [id number] [place] [address]- 2850 Mar, [facility] [place] [facility] [address] [id number] [place] [address]- 5402 Mar, [facility] [place] [facility] [address] [id number] [place] [address]- 8708 Mar, [facility] [place] [facility] [address] [id number] [place] [address]- 4671 Jan, [facility] [place] [facility] [address] [id number] [place] [address]- 9490 Dec, [facility] [place] [facility] [address] [id number] [place] [address]- 0639 Dec, [facility] [place] [facility] [address] [id number] [place] [address]- 7020 October, [facility] [place] [facility] [address] [id number] [place] [address]- 4886 Sep, [facility] [place] [facility] [address] [id number] [place] [address]- 3364 14 Sep, 2010 [facility] [place] [facility] [address] [id number] [place] [address]- 3665 17 Jul, 2010 [facility] [place] [facility] [address] [id number] [place] [address]- 1641 16 Jul, 2010 [facility] [place] [facility] [address] [id number] [place] [address]- 7209 31 May, 2010 [facility] [place] [facility] [address] [id number] [place] [address]- 9117 27 May, 2010 [facility] [place] [facility] [address] [id number] [place] [address]- 7538 08 May, 2010 [facility] [place] [facility] [address] [id number] [place] [address]- 9206 May, [facility] [place] [facility] [address] [id number] [place] [address]- 7002 Apr, [facility] [place] [facility] [address] [id number] [place] [address]- 8716 Apr, [facility] [place] [facility] [address] [id number] [place] [address]- 2107 Apr, [facility] [place] [facility] [address] [id number] [place] [address]- 7685 Apr, [facility] [place] [facility] [address] [id number] [place] [address]- 0260 Apr, [facility] [place] [facility] [address] [id number] [place] [address]- 9190 21 Mar, 2010 [facility] [place] [facility] [address] [id number] [place] [address]- 3656 14 Mar, 2010 [facility] [place] [facility] [address] [id number] [place] [address]- 4115 13 Mar, 2010 [facility] [place] [facility] [id number] [address]- 6726 Mar, [facility] [id number] [address] 4689 Jan, [facility] [id number] [address]447 Dec, [facility] [id number] [address] 3329 Sep, [facility] [id number] [address] 3895 May, [facility] [id number] [place] [address]- 2631 May, [facility] [id number] [address] 0509 May, [facility] [id number] [place] [address]- 6433 Apr, [facility] [id number] [address] 1518 Apr, [facility] [id number] [address] 9302 Apr, [facility] [id number] [address] 4815 Apr, [facility] [id number] [address] 3098 Apr, [facility] [id number] [address] 9977 Mar, [facility] [id number] [address]- [address] Mar, [facility] [id number] [address]- 7481 Jul, IMMUNIZATIONS No Known Immunizations SOCIAL HISTORY Never Assessed REASON FOR VISIT Refill request PLAN OF CARE VITAL SIGNS MEDICATIONS Medication Instructions Dosage Frequency Start Date End Date Duration Status Ropinirole HCl 4 mg 1 tablet at bedtime Orally Active RESULTS No Results PROCEDURES No Known [...] 08/2017 Surgical History nephrectomy 03/2017 Hospitalization History Cellulitis-[facility] 12/20/15 Hospitalization [facility]- Abd pain 03/07/2017 Hospitalization [facility]- Abd pain 03/14/2017 Hospitalization History [facility]- No bowel movement, rash 04/13/2017 Hospitalization History [facility]- Abd pain r/t kidney surgery on 04/17/2017 Hospitalization History [facility]- Abd pain r/t kidney surgery on 04/18/2017 Hospitalization History [facility]- Lower abd pain 04/30/2017 Hospitalization [facility]- Cannot urinate 05/30/2017 Hospitalization History [facility]- Pancreatitis Sx 06/29/2017 Hospitalization [facility]- Stomach pain 07/22/2017 [facility]- Left side pain 08/12/2017 Hospitalization History [facility] [place]- Incision site infection 08/30/2017 Hospitalization History [facility]- Post Op Seroma/Hematoma Left Abdomen. Discharged 09/04/17- Dr Daniel 09/02/2017 Hospitalization History [facility]- Right shoulder and back pain 2017
--- OUTSIDE RECORDS SUMMARY | 2017-12-18 01:35 | XMS REPORT ---
Author Author BHUPENDRA Ford Organization [facility] [place] Address [address] [place] [address] Care Team Providers Care Ssn/Ssbn Assistant Navigator Name Role Phone Liliana BHUPENDRA Unavailable PROBLEMS Type Condition ICD9-CM Code UAX77-KF Code Onset Dates Condition Status SNOMED Code Problem Asthma J45.909 Active 893026129 Problem Atelectasis J98.11 Active 11245557 Problem Polydipsia R63.1 Active 55060708 Problem Chronic fatigue R53.82 Active 21872234 Problem Moderate episode of recurrent major depressive disorder F33.1 Active 757095174 Problem Generalized social phobia F40.11 Active 10716767 Problem Trichotillomania F63.3 Active 18244689 Problem Restless leg syndrome G25.81 Active 50843269 Problem Chronic post-traumatic stress disorder (PTSD) F43.12 Active 565105209 Problem History of renal cell carcinoma Z85.528 Active 537407772 Problem Nodule of left lung R91.1 Active 060086771 Problem Chronic tension-type headache, intractable G44.221 Active 107918038 Problem Hyperlipidemia, mixed E78.2 Active 082717747 Problem Hirsuties L68.0 Active 559434307 Problem Morbid (severe) obesity due to excess calories E66.01 Active 714789587 Problem FH: polycystic ovary Z84.2 Active 748782632 Problem Chronic pancreatitis K86.1 Active 360070179 ALLERGIES Substance Reaction Event Type Date Status Penicillin V Potassium Unknown Drug Allergy May, Active Fentanyl Unknown Drug Allergy May, Active Demerol Unknown Drug Allergy May, Active ENCOUNTERS Encounter Location Date Diagnosis [facility] [place] [address] [facility] [id number] [address] Feb, [facility] [place] [address] [facility] [id number] [address] Dec, [facility] [address] [address] Nov, Acute suppurative otitis media of right ear without spontaneous rupture of tympanic membrane, recurrence not specified H66.001 and BMI 45.0-49.9, adult Z68.42 [facility] [place] [address] [address] Nov, Hyperlipidemia, mixed E78.2 [place] [address] [place] [id number] [address] 43262- 8501 Nov, [place] [address] [place] [place] [id number] [place] [address] 42398- 7589 Nov, [place] [address] [place] [id number] [place] [address] 53749- 2097 Nov, Nodule of left lung R91.1 [place] [address] [place] [id number] [address] 64406- 1721 Nov, Medicare annual wellness visit, initial Z00.00 [...] adult Z68.42 and Encounter for immunization Z23 [facility] [place] [address] [address] October, [place] [address] [place] [id number] [address] 44601- 7034 October, Nodule of left lung R91.1 [place] [address] [id number] [address] 1648 October, Nodule of left lung R91.1 [place] [address] [id number] [address] 67046- 5183 October, Recurrent major depressive disorder, in partial remission F33.41 ; Restless leg syndrome G25.81 ; Generalized social phobia F40.11 ; Chronic post-traumatic stress disorder (PTSD) F43.12 ; BMI 45.0-49.9, adult Z68.42 and Trichotillomania F63.3 [place] [address] [id number] [address] 17872- 6522 October, [place] [address] [address]58- 0867 Sep, Chronic fatigue R53.82 and BMI 45.0-49.9, adult Z68.42 [place] [address] 41461- 4483 Aug, [place] [address] [place] [id number] [place] [address] 48448- 6092 Jul, Restless leg syndrome G25.81 and B12 deficiency E53.8 [place] [address] [id number] [address] 83843- 3984 Jul, [place] [address] 47065- 9652 Jul, [place] [address] [id number] [address] 67597- 2014 Jun, [place] [address] 23123- 3261 Jun, Fatigue, unspecified type R53.83 ; History of renal cell carcinoma Z85.528 ; Chronic pancreatitis K86.1 ; Restless leg syndrome G25.81 ; Dark urine R82.99 and BMI 45.0-49.9, adult Z68.42 [facility] [place] [address] [id number] [address] 87292- 1845 Jun, [place] [address] 25706- 9300 Jun, [facility] [place] [address] [address] 00[address] Jun, [facility] [place] [address] [address] 7050 Jun, [facility] [place] [address] [address] 8170 May, Chronic post-traumatic stress disorder (PTSD) F43.12 ; Moderate episode of recurrent major depressive disorder F33.1 ; Trichotillomania F63.3 and Generalized social phobia F40.11 [place] [address] [address] May, [place] [address] [address] 5003 May, Chronic post-traumatic stress disorder (PTSD) F43.12 ; Moderate episode of recurrent major depressive disorder F33.1 ; Trichotillomania F63.3 and Generalized social phobia F40.11 [place] [address] [place] [id number] [address] 1471 May, Hyperlipidemia, mixed E78.2 ; Morbid (severe) obesity due to excess calories E66.01 ; Chronic post-traumatic stress disorder (PTSD) F43.12 ; Moderate episode of recurrent major depressive disorder F33.1 ; Trichotillomania F63.3 and Generalized social phobia F40.11 [place] [address] [address] [id number] [address] 8859 Apr, [place] [address] [id number] [address] 1821 Apr, Hyperlipidemia, mixed E78.2 ; Morbid (severe) obesity due to excess calories E66.01 ; Chronic post-traumatic stress disorder (PTSD) F43.12 ; Moderate episode of recurrent major depressive disorder F33.1 ; Trichotillomania F63.3 and Generalized social phobia F40.11 [place] [address] [address] Apr, Trichotillomania F63.3 ; Generalized social phobia F40.11 ; Chronic post-traumatic stress disorder (PTSD) F43.12 and Moderate episode of recurrent major depressive disorder F33.1 [facility] [place] [id number] [address] 91246- 2823 Apr, [facility] [place] [address] [id number] [place] [address] 50995- 0633 Apr, [facility] [place] [address] [id number] [address] 25855- 9292 Mar, Moderate episode of recurrent major depressive disorder F33.1 ; Trichotillomania F63.3 ; Chronic post-traumatic stress disorder (PTSD) F43.12 ; Generalized social phobia F40.11 and Restless leg syndrome G25.81 [facility] [place] [address] [place] [id number] [address] 90302- 2109 Mar, [facility] [place] [address] [id number] [place] [address] 92398- 9188 Mar, [facility] [place] [address] [id number] [place] [address] 83655- 8975 Feb, Left kidney mass N28.89 [facility] [place] [address] [id number] [address] 11037- 7933 Jan, [facility] [place] [address] [id number] [address] 05896- 0114 Dec, Polydipsia R63.1 ; Chronic pancreatitis K86.1 and Fatigue, unspecified type R53.83 [facility] [place] [address] [id number] [address] 28128- 7757 Nov, [facility] [place] [address] 79215- 0467 Nov, [facility] [place] [address] [id number] [place] [address] 57961- 2035 Nov, Headache around the eyes R51 [facility] [place] [address] [id number] [address] 47226- 8044 Nov, [place] [address] [id number] [place] [address] 96063- 1421 October, STD exposure Z20.2 [facility] [place] [address] [id number] [address] 36642- 1902 October, STD exposure Z20.2 [place] [address] 46451- 2996 October, Chronic post-traumatic stress disorder (PTSD) F43.12 ; Generalized social phobia F40.11 ; Trichotillomania F63.3 and Restless leg syndrome G25.81 [place] [address] [id number] [address] 09483- 7423 October, [place] [address] [id number] [place] [address] 35698- 5551 Sep, [place] [address] [id number] [place] [address] 78753- 8289 Aug, [place] [address] [id number] [place] [address] 34878- 7935 Aug, [place] [address] [id number] [place] [address] 77258- 3388 Aug, Neck mass R22.1 [place] [address] [id number] [place] [address] 58059- 0643 Aug, Atelectasis J98.11 [place] [address] [id number] [address] 45557- 1860 28 Jul, 2016 Hyperlipidemia, mixed E78.2 ; Atypical pneumonia J18.9 and Neck mass R22.1 [place] [address] [id number] [address] 30322- 4117 15 Jul, 2016 Hemoptysis R04.2 [place] [address] [id number] [address] 68008- 2247 Jul, Acute non-recurrent pansinusitis J01.40 ; Hemoptysis R04.2 ; Polydipsia R63.1 and Malaise R53.81 [facility] [place] [id number] [address] 93434 -2601 May, Other viral agents as the cause of diseases classified elsewhere B97.89 and Acute upper respiratory infection, unspecified J06.9 [facility] [address] [address] -1849 Mar, Nausea R11.0 [facility] [address] 63966 -0474 Dec, Hives L50.[address] 40853- 7344 Dec, [facility] [address] 45999 -8337 Dec, Cutaneous abscess of limb, unspecified L02.419 ; Cellulitis of unspecified part of limb L03.119 ; Encounter for incision and drainage procedure Z01.89 and Encounter for recheck of abscess following incision and drainage Z09 [facility] [place] [id number] [address] 85015 -6881 Dec, Abscess of leg, right L02.415 [place] [id number] [place] [address] 01482- 8435 Dec, Cellulitis of unspecified part of limb L03.119 and Cutaneous abscess of limb, unspecified L02.419 [place] [address] [place] [place] [id number] [place] [address] 85111- 2570 Dec, [address] 94880- 1382 Dec, [facility] [address] 59074 -4796 Aug, [address] [place] [address]- 5177 Aug, [facility] [address] [id number] [place] [address] 33376 -1378 04 Jul, 2015 Pain in unspecified wrist M25.539 and Back pain, thoracic M54.6 [facility] [address] [id number] [address] 01395 -3873 13 Jun, 2015 Strain of right wrist, initial encounter S66.911A [facility] [place] [address] 23816- 2200 11 Jun, 2015 Chronic pancreatitis, unspecified pancreatitis type K86.1 ; Hirsuties L68.0 ; Morbid (severe) obesity due to excess calories E66.01 ; Chronic pancreatitis K86.1 and Asthma J45.909 [place] [address] 27799- 5032 May, [place] [address] 85629- 3014 May, Hyperlipidemia, mixed E78.2 and Muscle spasm of back M62.830 [place] [address] 03971- 8964 Apr, [place] [address] [place] [id number] [address] 93560- 6832 Apr, Torticollis M43.6 [place] [address] 31373- 6012 Apr, Right-sided thoracic back pain M54.6 [place] [address] 96290- 8629 Mar, Rash R21 [place] [address] 44611- 5506 Mar, [place] [address] 63884- 7499 Jan, [place] [address] [place] [address]- 7485 Dec, [facility] [place] [address] [place] [id number] [place] [address] 45727- 8526 Dec, Urinary frequency 788.41 and Nocturia more than twice per night 788.43 [facility] [place] [address] [place] [id number] [place] [address] 99963- 8123 Nov, [facility] [place] [address] [id number] [place] [address] 54678- 4632 Nov, [facility] [place] [address] [place] [id number] [place] [address] 51368- 2863 Nov, Abdominal pain 789.00 [facility] [place] [address] [place] [place] [id number] [place] [address] 23337- 4726 October, TDAP DX V06.1 [facility] [place] [address] [place] [place] [id number] [address] 25701- 0305 October, [facility] [place] [address] [place] [id number] [address] 32363- 3201 October, Disturbance of skin sensation 782.0 ; Wrist pain, right 719.43 ; Hyperlipidemia 272.4 and Skin lesion of face 709.9 [facility] [place] [address] [address] 35516- 0243 Sep, [facility] [place] [address] [place] [place] [id number] [place] [address] 36829- 4871 Sep, [facility] [place] [address] [place] [id number] [place] [address] 82934- 2029 Aug, [facility] [place] [address] [place] [place] [id number] [place] [address] 69390- 5689 Aug, [facility] [place] [address] [id number] [place] [address] 57875- 0685 Aug, [facility] [place] [address] [place] [id number] [place] [address] 69109- 2297 Aug, [facility] [place] [facility] [address] [id number] [place] [address]- 3950 16 Aug, 2014 [facility] [place] [facility] [address] [id number] [place] [address]- 2524 16 Aug, 2014 [facility] [place] [facility] [address] [id number] [place] [address]- 8714 14 Aug, 2014 [facility] [place] [facility] [address] [id number] [place] [address]- 3568 14 Aug, 2014 [facility] [place] [facility] [address] [id number] [place] [address]- 2384 11 Aug, 2014 [facility] [place] [facility] [address] [id number] [place] [address]- 3234 11 Aug, 2014 [facility] [place] [facility] [address] [id number] [place] [address]- 8207 04 Aug, 2014 [facility] [place] [facility] [address] [id number] [place] [address]- 6423 04 Aug, 2014 [facility] [place] [facility] [address] [id number] [place] [address]- 7672 03 Aug, 2014 [facility] [place] [facility] [address] [id number] [place] [address]- 2478 03 Aug, 2014 [facility] [place] [facility] [address] [id number] [place] [address]- 4629 23 Jul, 2014 [facility] [place] [facility] [address] [id number] [place] [address]- 0094 23 Jul, 2014 [facility] [place] [facility] [address] [id number] [place] [address]- 7740 Jul, [facility] [place] [facility] [address] [id number] [place] [address]- 6652 13 Jul, 2014 [facility] [place] [facility] [address] [id number] [place]- 2131 04 Jul, 2014 [facility] [place] [facility] [address] [id number] [address]- 4690 04 Jul, 2014 [facility] [address] [id number] [place] [address]- 9910 Jun, [facility] [place] [facility] [address] [id number] [place] [address]- 3598 Jun, [facility] [address] [facility] [id number] [place] [address]- 5787 Jun, [facility] [place] [facility] [address] [id number] [place] [address]- 5055 Jun, [facility] [address] [id number] [place] [address]- 4584 Jun, [facility] [place] [facility] [address] [id number] [place] [address]- 8772 Jun, [facility] [address] [facility] [id number] [place] [address]- 5073 Jun, [facility] [place] [facility] [address] [id number] [place] [address]- 9804 Jun, [facility] [address] [id number] [place] [address]- 1770 May, [facility] [place] [facility] [address] [facility] [id number] [place] [address]- 2549 May, [facility] [place] [facility] [address] [id number] [place] [address]- 8911 18 May, 2014 [facility] [place] [facility] [address] [id number], [place] [address]- 1358 18 May, 2014 [facility] [place] [facility] [address] [id number] [place] [address]- 8358 15 May, 2014 [facility] [place] [facility] [address] [facility] [id number] [place] [address]- 8728 15 May, 2014 [facility] [place] [facility] [address] [facility] [id number] [place]- 4444 11 May, 2014 [facility] [place] [facility] [address] [id number] [place] [address]- 1120 May, [facility] [place] [facility] [address] [id number] [place] [address]- 6070 May, [facility] [place] [facility] [address] [id number] [place] 9684 May, [facility] [place] [facility] [address] [id number] [place] [address]- 1602 May, [facility] [place] [facility] [address] [id number] [place] [address]- 0066 May, [facility] [place] [facility] [address] [id number] [place] [address]- 5347 Apr, [facility] [place] [facility] [address] [id number] [place] [address]- 4056 Apr, [facility] [place] [facility] [address] [id number] [place] [address]- 4295 Apr, [facility] [place] [facility] [address] [id number] [place] [address]- 7932 Apr, [facility] [place] [facility] [address] [id number] [place] [address]- 3722 Apr, [facility] [place] [facility] [address] [id number] [place] [address]- 6728 Apr, [facility] [place] [facility] [address] [id number] [place] [address]- 0680 Apr, [facility] [place] [facility] [address] [id number] [place] [address]- 4923 Apr, [facility] [place] [facility] [address] [id number] [place] [address]- 9636 Apr, [facility] [place] [facility] [address] [id number] [place] [address]- 9660 13 Apr, 2014 [facility] [place] [facility] [address] [id number] [place] [address]- 2755 Apr, [facility] [place] [facility] [address] [id number] [place] [address]- 8670 Apr, [facility] [place] [facility] [address] [id number] [place] [address]- 7056 Mar, [facility] [place] [facility] [address] [id number] [place] [address]- 5621 Mar, [facility] [place] [facility] [address] [id number] [place] [address]- 6866 Mar, [facility] [place] [facility] [address] [id number] [place] [address]- 2560 Mar, [facility] [place] [facility] [address] [id number] [place] [address]- 1739 Feb, [facility] [place] [facility] [address] [id number] [place] [address]- 1150 Feb, [facility] [place] [facility] [address] [id number] [place] [address]- 4973 05 Feb, 2013 [facility] [place] [facility] [address] [id number] [place] [address]- 4287 05 Feb, 2014 [facility] [place] [facility] [address] [id number] [place] [address]- 2817 05 Feb, 2014 [facility] [place] [facility] [address] [id number], [place] [address]- 7113 Feb, 2013 [facility] [place] [facility] [address] [id number], [place] [address] Jan, [facility] [place] [facility] [address] [id number] [place] [address] Jan, [facility] [place] [facility] [address] [id number] [place] [address] Jan, [facility] [place] [facility] [address] [id number] [place] [address] Jan, [facility] [place] [facility] [address] [id number] [place] [address] Jan, [facility] [place] [facility] [address] [id number] [place] [address] Jan, [facility] [place] [facility] [address] [id number] [place] [address] Jan, [facility] [place] [facility] [address] [id number] [place] [address] Jan, [facility] [place] [facility] [address] [id number] [place] [address] Jan, [facility] [place] [facility] [address] [id number] [place] [address] Jan, [facility] [place] [facility] [address] [id number] [place] [address] Jan, [facility] [place] [facility] [address] [id number] [place] [address] Jan, [facility] [place] [facility] [address] [id number] [place] [address] Jan, [facility] [place] [facility] [address] [id number] [place] [address] Jan, [facility] [place] [facility] [address] [id number] [place] [address] Dec, [facility] [place] [facility] [address] [id number] [place] [address] Dec, [facility] [place] [facility] [address] [id number] [place] [address]- [address] Dec, [facility] [place] [facility] [address] [id number] [place] [address] Dec, [facility] [place] [facility] [address] [id number] [place] [address] Nov, [facility] [place] [facility] [address] [id number] [place] [address] Nov, [facility] [place] [facility] [address] [id number] [place] [address] Nov, [facility] [place] [facility] [address] [id number] [place] [address] Nov, [facility] [place] [facility] [address] [id number] [place] [address] Nov, [facility] [place] [facility] [address] [id number] [place] [address]- [address] October, [facility] [place] [facility] [address] [id number] [place] [address] October, [facility] [place] [facility] [address] [id number] [place] [address] October, [facility] [place] [facility] [address] [id number] [place] [address] October, [facility] [place] [facility] [address] [id number] [place] [address] October, [facility] [place] [facility] [address] [id number] [place] [address] October, [facility] [place] [facility] [address] [id number] [place] [address] October, [facility] [place] [facility] [address] [id number] [place] [address] October, [facility] [place] [facility] [address] [id number] [place] [address] October, [facility] [place] [facility] [address] [id number] [place] [address] October, [facility] [place] [facility] [address] [id number] [place] [address] October, [facility] [place] [facility] [address] [id number] [place] [address] October, [facility] [place] [facility] [address] [id number] [place] [address] October, [facility] [place] [facility] [address] [id number] [place] [address] October, [facility] [place] [facility] [address] [id number] [place] [place] [address] Sep, [facility] [place] [facility] [address] [id number] [place] [address] Sep, [facility] [place] [facility] [address] [id number] [place] [address] Sep, [facility] [place] [facility] [address] [id number] [place] [address]- 5586 Sep, [facility] [place] [facility] [address] [id number] [place] [address] 3320 Sep, [facility] [place] [facility] [address] [id number] [place] [address] 9705 Sep, [facility] [place] [facility] [address] [id number] [place] [address]- 7723 Sep, [facility] [place] [facility] [address] [id number] [place] [address]- 4234 Sep, [facility] [place] [facility] [address] [id number] [place] [address] 8864 Sep, [facility] [place] [facility] [address] [id number] [place] [address] 5809 Sep, [facility] [place] [facility] [address] [id number] [place] [address]- 2342 Sep, [facility] [place] [facility] [address] [id number] [place] [address]- 9257 Sep, [facility] [place] [facility] [address] [id number] [place] [address]- 4263 Sep, [facility] [place] [facility] [address] [id number] [place] [address]- 0205 Sep, [facility] [place] [facility] [address] [id number] [place] [address]- 4628 Sep, [facility] [place] [facility] [address] [id number] [place] [address]- 8115 Aug, [facility] [place] [facility] [address] [id number] [place] [address]- 7736 Aug, [facility] [place] [facility] [address] [id number] [place] [address]- 9629 Aug, [facility] [place] [facility] [address] [id number] [place] [address]- 8181 Aug, [facility] [place] [facility] [address] [id number] [place] [address]- 6900 Jul, [facility] [place] [facility] [address] [id number] [place] [address] Jul, [facility] [place] [facility] [address] [id number] [place] [address]- 8464 Jul, [facility] [place] [facility] [address] [id number] [place] [address]- 1767 Jul, [facility] [place] [facility] [address] [id number] [place] [address]- 4262 Jun, [facility] [place] [facility] [address] [id number] [place] [address]- 1993 Jun, [facility] [place] [facility] [address] [id number] [place] [address]- 5587 Jun, [facility] [place] [facility] [address] [id number] [place] [address]- 3482 Jun, [facility] [place] [facility] [address] [id number] [place] [address]- 2060 Jun, [facility] [place] [facility] [address] [id number] [place] [address]- 7898 Jun, [facility] [place] [facility] [address] [id number] [place] [address]- 9339 08 Jun, 2013 [facility] [address] [id number] [place] [address]- 9491 08 Jun, 2013 [facility] [address] [id number] [place] [address]- 8591 20 May, 2013 [facility] [address] [facility] [id number] [place] [address]- 2702 20 May, 2013 [facility] [address] [id number] [place] [address]- 8722 18 May, 2013 [facility] [address] [id number] [place] [address] 18 May, 2013 [facility] [address] [id number] [place] [address]- 2117 17 May, 2013 [facility] [address] [facility] [id number] [place] [address] 17 May, 2013 [facility] [address] [id number] [address] 5[address] 17 May, 2013 [facility] [address] [id number] [place] [address]- 0794 17 May, 2013 [facility] [address] [facility] [id number] [place] [address]- 0220 16 May, 2013 [facility] [address] [id number], [place] [address]- 2071 16 May, 2013 [facility] [place] [facility] [address] [id number][place] [address]- 2036 14 May, 2013 [facility] [place] [facility] [address] [id number] [place] [address]- 7494 14 May, 2013 [facility] [place] [facility] [address] [id number] [place] [address]- 2069 13 May, 2013 [facility] [place] [facility] [address] [id number] [place] [address]- 9038 13 May, 2013 [facility] [address] [id number] [place] [address]- 9498 May, [facility] [address] [id number] [place] [address]- 1721 May, [facility] [place] [facility] [address] [id number] [place] [address] May, [facility] [address] [id number] [place] [address]- 2740 May, [facility] [place] [facility] [address] [id number] [place] [address]- 6633 Apr, [facility] [address] [id number] [place] [address]- 2595 Apr, [facility] [place] [facility] [address] [id number] [place] [address]- 9460 Apr, [facility] [address] [id number] [place] [address]- 4930 Apr, [facility] [place] [facility] [address] [id number] [place] [address]- 8104 Aug, [facility] [place] [facility] [address] [id number] [place] [address]- 8948 Aug, [facility] [place] [facility] [address] [id number] [place] [address]- 8011 Aug, [facility] [place] [facility] [address] [id number] [place] [address]- 1037 05 Aug, 2012 [facility] [place] [facility] [address] [id number] [place] [address]- 3893 Jul, [facility] [place] [facility] [address] [id number] [place] [address]- 6679 Jun, [facility] [place] [facility] [address] [id number] [place] [address]- 7447 Jun, [facility] [place] [facility] [address] [id number] [place] [address]- 9311 Jun, [facility] [place] [facility] [address] [id number] [place] [address]- 3109 Jun, [facility] [address] [id number] [place] [address]- 7352 May, [facility] [place] [facility] [address] [id number] [place] [address]- 4133 May, [facility] [place] [facility] [address] [id number] [place] [address]- 7301 May, [facility] [address] [id number] [place] [address]- 3306 May, [facility] [address] [id number] [place] [address]- 7024 May, [facility] [address] [id number] [place] [address]- 8137 May, [facility] [address] [id number] [place] [address]- 4801 May, [facility] [address] [id number] [place] [address]- 7494 Apr, [facility] [address] [id number] [place] [address]- 6989 Apr, [facility] [place] [facility] [address] [id number] [place] [address]- 5680 Apr, [facility] [place] [facility] [address] [id number] [place] [address]- 0000 Apr, [facility] [place] [facility] [address] [id number] [place] [address]- 1853 Apr, [facility] [place] [facility] [address] [id number] [place] [address]- 2645 Apr, [facility] [place] [facility] [address] [id number] [place] [address]- 3164 Apr, [facility] [place] [facility] [address] [id number] [place] [address]- 2546 Mar, [facility] [place] [facility] [address] [id number] [place] [address]- 1806 Mar, [facility] [place] [facility] [address] [id number] [place] [address]- 1233 Mar, [facility] [place] [facility] [address] [id number] [place] [address]- 0168 Mar, [facility] [place] [facility] [address] [id number] [place] [address]- 9357 Mar, [facility] [place] [facility] [address] [id number] [place] [address]198 Mar, [facility] [place] [facility] [address] [id number] [place] 1010 Mar, [facility] [place] [facility] [address] [id number] [place] [address]33 Mar, [facility] [place] [facility] [address] [id number] [place] [address]- 1593 Mar, [facility] [place] [facility] [address] [id number] [place] [address]- 6407 Mar, [facility] [place] [facility] [address] [id number] [place] [address]- 0815 Mar, [facility] [place] [facility] [address] [id number] [address]- 3052 Mar, [facility] [place] [facility] [address] [id number], [place] [address]- 2317 Feb, [facility] [place] [facility] [address] [id number] [place] [address]- 3930 Jan, [facility] [place] [facility] [address] [id number] [place] [address]- 3934 Jan, [facility] [place] [facility] [address] [id number] [place] [address]- 2757 Jan, [facility] [place] [facility] [address] [id number] [place] [address]- 2546 Jan, [facility] [address] [id number] [place] [address]- 7308 Jan, [facility] [address] [id number] [place] [address]- 5497 Dec, [facility] [address] [id number] [place] [address]- 5137 Dec, [facility] [address] [id number] [place] [address]- 6856 Nov, [facility] [address] [id number] [place] [address]- 5812 Nov, [facility] [address] [id number] [place] [address]- 1976 Nov, [facility] [address] [id number] [place] [address]- 5159 October, [facility] [address] [id number] [place] [address]- 9394 October, [facility] [address] [id number] [place] [address]- 2206 October, [facility] [address] [id number] [place] [address]- 0852 October, [facility] [address] [id number] [place] [address]- 8928 October, [facility] [address] [id number] [place] [address]- 6638 October, [facility] [place] [facility] [address] [id number] [place] [address]- 0642 October, [facility] [address] [id number] [place] [address]- 4408 Sep, [facility] [address] [id number] [place] [address] Sep, [facility] [address] [id number] [place] [address]- 2003 26 Sep, 2011 [facility] [place] [facility] [address] [id number] [place] [address]- 3132 25 Sep, 2011 [facility] [place] [facility] [address] [id number] [place] [address]- 4259 24 Sep, 2011 [facility] [place] [facility] [address] [id number] [place] [address]- 8719 19 Sep, 2011 [facility] [place] [facility] [address] [id number] [place] [address]- 4463 17 Sep, 2011 [facility] [place] [facility] [address] [id number] [place] [address]- 9515 16 Sep, 2011 [facility] [place] [facility] [address] [id number] [place] [address]- 6480 16 Sep, 2011 [facility] [place] [facility] [address] [id number] [place] [address]- 0920 14 Sep, 2011 [facility] [place] [facility] [address] [id number] [place] [address]- 4265 13 Sep, 2011 [facility] [place] [facility] [address] [id number] [place] [address]- 7388 10 Sep, 2011 [facility] [place] [facility] [address] [id number] [place] [address]- 2474 09 Sep, 2011 [facility] [place] [facility] [address] [id number] [place] [address]- 5472 27 Aug, 2011 [facility] [place] [facility] [address] [id number] [place] [address]- 0036 12 Aug, 2011 [facility] [place] [facility] [address] [id number] [place] [address]- 7949 08 Aug, 2011 [facility] [place] [facility] [address] [id number] [place] [address]- 0717 06 Aug, 2011 [facility] [place] [facility] [address] [id number], [place] [address]- 0873 28 Jul, 2011 [facility] [address] [id number] [place] [address]- 6586 22 Jul, 2011 [facility] [address] [id number] [place] [address] 2546 16 Jul, 2011 [facility] [address] [id number] [place] [address]- 1826 15 Jul, 2011 [facility] [address] [id number] [place] [address] 2546 14 Jul, 2011 [facility] [address] [id number] [place] [address]- 8996 10 Jul, 2011 [facility] [address] [id number] [place] [address]- 2303 30 Jun, 2011 [facility] [address] [id number] [place] [address]- 9574 05 Jun, 2011 [facility] [address] [id number] [place] [address]- 1530 Jun, [facility] [address] [id number] [place] [address]- 5515 Jun, [facility] [address] [id number] [place] [address]- 7392 Jun, [facility] [address] [id number] [place] [address] 2546 May, [facility] [address] [id number] [place] [address] 2546 May, [facility] [place] [facility] [address] [id number] [place] [address]- 1496 14 May, 2011 [facility] [place] [facility] [address] [id number] [place] [address]- 2546 14 May, 2011 [facility] [address] [id number] [place] [address]- 0873 May, [facility] [place] [facility] [address] [id number] [place] [address]- 6963 May, [facility] [place] [facility] [address] [id number] [place] 2392 May, [facility] [place] [facility] [address] [id number] [place] [address]- 0497 Apr, [facility] [place] [facility] [address] [id number] [place] [address]- 8776 Apr, [facility] [place] [facility] [address] [id number] [place] [address]- 6154 Apr, [facility] [place] [facility] [address] [id number] [place] [address]- 7982 Apr, [facility] [place] [facility] [address] [id number] [place] [address] Apr, [facility] [place] [facility] [address] [id number] [place] [address]- 1952 Apr, [facility] [place] [facility] [address] [id number] [place] [address]- 6024 Mar, [facility] [place] [facility] [address] [id number] [place] [address]- 1799 Mar, [facility] [place] [facility] [address] [id number] [place] [address]- 0272 Mar, [facility] [place] [facility] [address] [id number], [place] [address]- 9453 Mar, [facility] [place] [facility] [address] [id number] [place] [address]- 1688 Jan, [facility] [place] [facility] [address] [id number] [place] [address]- 2253 Dec, [facility] [place] [facility] [address] [id number] [place] [address]- 9553 Dec, [facility] [place] [facility] [address] [id number], [place] [address]- 7865 October, [facility] [address] [id number] [place] [address]- 5870 Sep, [facility] [place] [facility] [address] [id number] [place] [address]- 9636 14 Sep, 2010 [facility] [place] [facility] [address] [id number] [place] [address]- 1766 17 Jul, 2010 [facility] [place] [facility] [address] [id number] [place] [address]- 2217 16 Jul, 2010 [facility] [place] [facility] [address] [id number] [place] [address]- 8307 31 May, 2010 [facility] [place] [facility] [address] [id number] [place] [address]- 2690 May, [facility] [address] [facility] [id number] [place] [address]- 0927 May, [facility] [place] [facility] [address] [id number] [place] [address]- 9306 May, [facility] [place] [facility] [address] [facility] [id number] [place] [address]- 8817 Apr, [facility] [place] [facility] [address] [facility] [id number] [place] [address]- 0430 Apr, [facility] [place] [facility] [address] [facility] [id number] [place] [address]- 2811 Apr, [facility] [place] [facility] [address] [id number], [place] [address]- 3110 Apr, [facility] [place] [facility] [address] [facility] [id number] [place] [address]- 4071 Apr, [facility] [place] [facility] [address] [facility] [id number] [place] [address]- 7668 Mar, [facility] [place] [facility] [address] [facility] [id number] [place] [address]- 9129 14 Mar, 2010 [facility] [place] [facility] [address] [id number] [place] [address]- 7360 13 Mar, 2010 [facility] [place] [facility] [address] [id number] [place] [address]- 8199 12 Mar, 2010 [facility] [place] [facility] [address] [id number] [place] [address]- 0198 Jan, [facility] [place] [facility] [address] [id number] [place] [address]- 3733 15 Dec, 2009 [facility] [place] [facility] [address] [id number] [place] [address]- 8774 Sep, [facility] [place] [facility] [address] [id number] [place] [address]- 5821 08 May, 2009 [facility] [place] [facility] [address] [id number] [place] [address]- 3953 May, [facility] [place] [facility] [address] [id number] [place] [address]- 9659 May, [facility] [place] [facility] [address] [id number] [place] [address]- 7528 17 Apr, 2009 [facility] [place] [facility] [address] [id number] [place] [address]- 5571 17 Apr, 2009 [facility] [place] [facility] [address] [facility] [id number] [place] [address]- 8442 10 Apr, 2009 [facility] [place] [facility] [address] [id number] [place] [address]- 2431 10 Apr, 2009 [facility] [place] [facility] [address] [id number] [place] [address]- 9936 09 Apr, 2009 [facility] [place] [facility] [address] [id number] [place] [address]- 1596 15 Mar, 2009 [facility] [place] [facility] [address] [id number] [place] 5251 15 Mar, 2009 [facility] [place] [facility] [address] [id number] [place] [address]- 4400 Jul, IMMUNIZATIONS No Known Immunizations SOCIAL HISTORY Never Assessed REASON FOR VISIT f/u PLAN OF CARE Activity Details Follow Up next available Reason: VITAL SIGNS MEDICATIONS Medication Instructions Dosage Frequency Start Date End Date Duration Status Hydrocodone-Acetaminophen 5-325 MG Orally every 6 hrs 1 tablet as needed 6h Unknown Doxycycline Hyclate 100 MG Orally every 12 hrs 1 capsule 12h Unknown Prozac 40 MG Orally Once a day for depression 1 capsules Unknown Mupirocin 2 % Externally Three times a day 1 application to affected area 8h Unknown Benadryl 25 MG Orally at bedtime as needed for sleep 1-2 capsule as needed Unknown Ropinirole HCl 4 mg 1 tablet at bedtime Orally Unknown Zenpep [id number] UNIT Orally 3 times a day 1 tablet 8h Unknown Albuterol Sulfate (2.5 MG/3ML) 0.083% Inhalation Three times a day 3 ml 8h Jun, Unknown Nac 600 600 MG Orally Once with evening meal for hair pulling 1 capsule October, Unknown Ibuprofen 800 MG Orally Three times a day take 1 tablet (800 mg) by oral route 3 times per day with food 8h Mar, 30 days Unknown Esoterica Regular 2 % Unknown Estradiol 0.5 MG Orally Once a day 2 tablet by Oral route 1 time per day 24h Apr, Unknown Ondansetron HCl 8 mg 1 tablet by Oral route every 8 hours PRN Jul, Unknown RESULTS No Results PROCEDURES Procedure Date Ordered Result Body Site Psychotherapy, patient &/family, 60 minutes, established patient Jun 14, 2017 INSTRUCTIONS MEDICATIONS ADMINISTERED No Known Medications [...] 08/2017 Surgical History nephrectomy 03/2017 Hospitalization History [facility] 12/20/15 [facility]- Abd pain 03/07/2017 [facility]- Abd pain 03/14/2017 [facility]- No bowel movement, rash 04/13/2017 [facility] History [facility]- Abd pain r/t kidney surgery on 04/17/2017 Hospitalization History [facility]- Abd pain r/t kidney surgery on 04/18/2017 Hospitalization History [facility]- Lower abd pain 04/30/2017 Hospitalization History [facility]- Cannot urinate 05/30/2017 Hospital[facility] History [facility]- Pancreatitis Sx 06/29/2017 [facility]- Stomach pain 07/22/2017 [facility] History [facility]- Left side pain 08/12/2017 Hospital[facility] History [facility]- Incision site infection 08/30/2017 Hospitalization History [facility]- Post Op Seroma/Hematoma Left Abdomen. Discharged 09/04/17- Dr Daniel 09/02/2017 Hospitalization History [facility]- Right shoulder and back pain 2017
--- OUTSIDE RECORDS SUMMARY | 2017-12-18 01:37 | XMS REPORT ---
Author Author SAI CARMEN [facility] Address [address] [place] [address] Care Team Providers Care Medical Practice Manager Name Role Phone CARMEN GIBBS Unavailable PROBLEMS Type Condition ICD9-CM Code VHB15-ZW Code Onset Dates Condition Status SNOMED Code Problem Asthma J45.909 Active 918014773 Problem Atelectasis J98.11 Active 33038268 Problem Polydipsia R63.1 Active 11209837 Problem Chronic fatigue R53.82 Active 75241244 Problem Moderate episode of recurrent major depressive disorder F33.1 Active 952614693 Problem Generalized social phobia F40.11 Active 82264913 Problem Trichotillomania F63.3 Active 47909069 Problem Restless leg syndrome G25.81 Active 83018243 Problem Chronic post-traumatic stress disorder (PTSD) F43.12 Active 462600653 Problem History of renal cell carcinoma Z85.528 Active 704094941 Problem Nodule of left lung R91.1 Active 266363848 Problem Chronic tension-type headache, intractable G44.221 Active 759911552 Problem Hyperlipidemia, mixed E78.2 Active 243291214 Problem Hirsuties L68.0 Active 066562575 Problem Morbid (severe) obesity due to excess calories E66.01 Active 462164288 Problem FH: polycystic ovary Z84.2 Active 935394455 Problem Chronic pancreatitis K86.1 Active 301134272 ALLERGIES Substance Reaction Event Type Date Status Penicillin V Potassium Unknown Drug Allergy Jun, Active Fentanyl Unknown Drug Allergy Jun, Active Demerol Unknown Drug Allergy Jun, Active ENCOUNTERS Encounter Location Date Diagnosis [facility] [address] [facility] [id number] [address] Feb, [facility] [address] [id number] [address] Dec, [facility] [id number] [place] [address] 69937- 3171 Nov, [facility] [address] [address] Nov, [place] [id number] [place] [address] 75556- 9421 Nov, Hyperlipidemia, mixed E78.2 [facility] [address] [address] Nov, Acute suppurative otitis media of right ear without spontaneous rupture of tympanic membrane, recurrence not specified H66.001 and BMI 45.0-49.9, adult Z68.42 [place] [address] [address]- 9516 Nov, Hyperlipidemia, mixed E78.2 [place] [address] 28492- 8494 Nov, [place] [address] 7[address]31- 2327 Nov, [place] [address] 64653- 3048 Nov, Nodule of left lung R91.1 [place] [id number] [place] [address] 17843- 1378 04 Nov, 2017 Medicare annual wellness visit, initial Z00.00 ; [...] adult Z68.42 and Encounter for immunization Z23 [place] [address] 7[address]14- 9082 October, [place] [id number] [place] [address] 47535- 2460 October, Nodule of left lung R91.1 [place] [id number] [place] [address] 80111- 6857 October, Nodule of left lung R91.1 [place] [id number] [place] [address] 10140- 3894 October, Recurrent major depressive disorder, in partial remission F33.41 ; Restless leg syndrome G25.81 ; Generalized social phobia F40.11 ; Chronic post-traumatic stress disorder (PTSD) F43.12 ; BMI 45.0-49.9, adult Z68.42 and Trichotillomania F63.3 [place] [id number] [place] [address] 75535- 8554 October, [place] [id number] [place] [address] 86366- 4995 Sep, Chronic fatigue R53.82 and BMI 45.0-49.9, adult Z68.42 [place] [id number] [place] [address] 86646- 1161 Aug, [place] [id number] [place] [address] 30413- 7240 Jul, Restless leg syndrome G25.81 and B12 deficiency E53.8 [place] [id number] [place] [address] 31536- 1537 Jul, [place] [id number] [place] [address] 40314- 3349 Jul, [place] [id number] [place] [address] 34514- 3407 Jun, [place] [id number] [place] [address] 40341- 3882 Jun, Fatigue, unspecified type R53.83 ; History of renal cell carcinoma Z85.528 ; Chronic pancreatitis K86.1 ; Restless leg syndrome G25.81 ; Dark urine R82.99 and BMI 45.0-49.9, adult Z68.42 [place] [id number] [place] [address] 52735- 5437 Jun, [place] [address] [id number] [address]- 3175 Jun, [place] [id number] [place] [address] 25463- 3636 Jun, [place] [id number] [place] [address] 52481- 8335 Jun, [place] [id number] [place] [address] 10479- 4518 May, Chronic post-traumatic stress disorder (PTSD) F43.12 ; Moderate episode of recurrent major depressive disorder F33.1 ; Trichotillomania F63.3 and Generalized social phobia F40.11 [place] [id number] [place] [address] 06594- 2754 May, [place] [id number] [place] [address] 07940- 5579 May, Chronic post-traumatic stress disorder (PTSD) F43.12 ; Moderate episode of recurrent major depressive disorder F33.1 ; Trichotillomania F63.3 and Generalized social phobia F40.11 [place] [address] [address] 2808 May, Hyperlipidemia, mixed E78.2 ; Morbid (severe) obesity due to excess calories E66.01 ; Chronic post-traumatic stress disorder (PTSD) F43.12 ; Moderate episode of recurrent major depressive disorder F33.1 ; Trichotillomania F63.3 and Generalized social phobia F40.11 [place] [address] [address] 9004 Apr, [place] [id number] [place] [address] 91690- 9498 Apr, Hyperlipidemia, mixed E78.2 ; Morbid (severe) obesity due to excess calories E66.01 ; Chronic post-traumatic stress disorder (PTSD) F43.12 ; Moderate episode of recurrent major depressive disorder F33.1 ; Trichotillomania F63.3 and Generalized social phobia F40.11 [place] [address] [place] [address] 96418- 3325 Apr, Trichotillomania F63.3 ; Generalized social phobia F40.11 ; Chronic post-traumatic stress disorder (PTSD) F43.12 and Moderate episode of recurrent major depressive disorder F33.1 [place] [id number] [place] [address] 49975- 5008 Apr, [place] [id number] [place] [address] 38725- 5391 Apr, [place] [id number] [place] [address] 85430- 8916 Mar, Moderate episode of recurrent major depressive disorder F33.1 ; Trichotillomania F63.3 ; Chronic post-traumatic stress disorder (PTSD) F43.12 ; Generalized social phobia F40.11 and Restless leg syndrome G25.81 [place] [address] [place] [address] 82693- 6623 Mar, [place] [id number] [place] [address] 05738- 9796 Mar, [place] [id number] [place] [address] 31621- 0291 Feb, Left kidney mass N28.89 [place] [id number] [place] [address] 92444- 5530 Jan, [place] [id number] [place] [address] 82403- 1520 Dec, Polydipsia R63.1 ; Chronic pancreatitis K86.1 and Fatigue, unspecified type R53.83 [place] [address] [id number] [address]- 3911 Nov, [facility] [address] [place] [address] 97675- 3909 Nov, [facility] [id number] [place] [address] 35019- 4503 Nov, Headache around the eyes R51 [facility] [id number] [place] [address] 68514- 1425 Nov, [facility] [address] [place] [address] 59649- 0382 October, STD exposure Z20.2 [facility] [id number] [place] [address] 79789- 1975 October, STD exposure Z20.2 [facility] [id number] [place] [address] 44023- 5728 October, Chronic post-traumatic stress disorder (PTSD) F43.12 ; Generalized social phobia F40.11 ; Trichotillomania F63.3 and Restless leg syndrome G25.81 [facility] [id number] [place] [address] 18754- 8052 October, [facility] [address] [place] [address] 52790- 9241 Sep, [facility] [id number] [place] [address] 46873- 5869 Aug, [facility] [address] [place] [address] 90781- 0870 Aug, [facility] [id number] [place] [address] 44029- 4450 08 Aug, 2016 Neck mass R22.1 [facility] [address] [place] [address] 91464- 3298 Aug, Atelectasis J98.11 [facility] [id number] [place] [address] 39812- 4892 28 Jul, 2016 Hyperlipidemia, mixed E78.2 ; Atypical pneumonia J18.9 and Neck mass R22.[address] 31448- 0503 15 Jul, 2016 Hemoptysis R04.[address] 50739- 9679 08 Jul, 2016 Acute non-recurrent pansinusitis J01.40 ; Hemoptysis R04.2 ; Polydipsia R63.1 and Malaise R53.81 [facility] [address] [address] -9907 May, Other viral agents as the cause of diseases classified elsewhere B97.89 and Acute upper respiratory infection, unspecified J06.9 [facility] [address] 48492 -9455 Mar, Nausea R11.0 [facility] [address] 61797 -7053 Dec, Hives L50.[address] 21539- 7021 Dec, [facility] [place] [id number] [place] [address] 48702 -4492 Dec, Cutaneous abscess of limb, unspecified L02.419 ; Cellulitis of unspecified part of limb L03.119 ; Encounter for incision and drainage procedure Z01.89 and Encounter for recheck of abscess following incision and drainage Z09 [facility] [place] [id number] [place] [address] 25367 -4526 09 Dec, 2015 Abscess of leg, right L02.[address] 20311- 4212 08 Dec, 2015 Cellulitis of unspecified part of limb L03.119 and Cutaneous abscess of limb, unspecified L02.419 [place] [address]- 8915 Dec, [facility] [id number] [place] [address] 79098- 1633 Dec, [facility] [id number] [place] [address] 03931 -0036 Aug, [facility] [id number] [place] [address] 00904- 4413 Aug, [facility] [id number] [place] [address] 45321 -4087 Jul, Pain in unspecified wrist M25.539 and Back pain, thoracic M54.6 [facility] [place] [id number] [place] [address] 02428 -9127 Jun, Strain of right wrist, initial encounter S66.911A [place] [address] 95611- 2751 Jun, Chronic pancreatitis, unspecified pancreatitis type K86.1 ; Hirsuties L68.0 ; Morbid (severe) obesity due to excess calories E66.01 ; Chronic pancreatitis K86.1 and Asthma J45.909 [place] [id number] [place] [address] 10187- 0198 May, [place] [id number] [place] [address] 33081- 9118 May, Hyperlipidemia, mixed E78.2 and Muscle spasm of back M62.830 [place] [id number] [place] [address] 49491- 5006 Apr, [place] [id number] [place] [address] 53484- 9603 16 Apr, 2015 Torticollis M43.6 [place] [id number] [place] [address] 59042- 0391 09 Apr, 2015 Right-sided thoracic back pain M54.6 [place] [address] [id number] [place] [address] 27137- 1624 Mar, Rash R21 [facility] [id number] [place] [address] 17520- 2178 Mar, [facility] [id number] [place] [address] 66915- 6973 Jan, [facility] [address] 42061- 7023 Dec, [facility] [id number] [place] [address] 32195- 1233 Dec, Urinary frequency 788.41 and Nocturia more than twice per night 788.43 [facility] [id number] [place] [address] 35585- 1987 Nov, [facility] [id number] [place] [address] 23968- 3844 Nov, [facility] [id number] [place] [address] 30198- 0320 Nov, Abdominal pain 789.00 [facility] [id number] [place] [address] 65871- 9560 October, TDAP DX V06.1 [facility] [id number] [place] [address] 93197- 3823 October, [facility] [id number] [place] [address] 13361- 2517 October, Disturbance of skin sensation 782.0 ; Wrist pain, right 719.43 ; Hyperlipidemia 272.4 and Skin lesion of face 709.9 [facility] [id number] [place] [address] 00204- 1163 Sep, [facility] [id number] [place] [address] 51877- 9838 Sep, [facility] [id number] [place] [address] 85093- 6226 Aug, [facility] [place] [facility] [address] [id number] [place] [address]- 9685 Aug, [facility] [place] [facility] [address] [id number] [place] [address]- 5347 Aug, [facility] [place] [facility] [address] [id number] [place] [address]- 1885 Aug, [facility] [place] [facility] [address] [id number] [place] [address]- 0225 Aug, [facility] [place] [facility] [address] [id number] [place] [address]- 7378 16 Aug, 2014 [facility] [place] [facility] [address] [id number] [place] [address]- 9266 Aug, [facility] [place] [facility] [address] [id number] [place] [address]- 0369 Aug, [facility] [place] [facility] [address] [id number] [place] [address]- 0911 Aug, [facility] [place] [facility] [address] [id number] [place] [address]- 5873 Aug, [facility] [place] [facility] [address] [id number] [place] [address]- 6937 Aug, [facility] [place] [facility] [address] [id number] [place] [address]- 6347 Aug, [facility] [place] [facility] [address] [id number] [place] [address]- 4495 Aug, [facility] [place] [facility] [address] [id number] [place] [address]- 5256 Aug, [facility] [place] [facility] [address] [id number] [place] [address]- 2626 Jul, [facility] [place] [facility] [address] [id number] [place] [address]- 8536 Jul, [facility] [place] [facility] [address] [id number] [place] [address]- 3519 Jul, 2014 [facility] [place] [facility] [address] [id number] [place] [address]- 0602 Jul, 2014 [facility] [place] [facility] [address] [id number] [place] [address]- 8921 Jul, [facility] [place] [facility] [address] [id number] [place] [address]- 6483 Jul, [facility] [place] [facility] [address] [id number] [place] [address]- 1818 Jun, [facility] [place] [facility] [address] [id number] [place] [address]- 4633 Jun, [facility] [place] [facility] [address] [id number] [place] [address]- 3884 Jun, [facility] [place] [facility] [address] [id number] [place] [address]- 0448 Jun, [facility] [place] [facility] [address] [id number] [place] [address]- 0425 Jun, [facility] [place] [facility] [address] [id number] [place] [address]- 4528 Jun, [facility] [place] [facility] [address] [id number] [place] [address]- 1105 Jun, [facility] [place] [facility] [address] [id number] [place] [address]- 2012 Jun, [facility] [place] [facility] [address] [id number] [place] [address]- 1406 May, [facility] [place] [facility] [address] [id number] [place] [address]- 7713 May, [facility] [place] [facility] [address] [id number] [place] [address]- 6985 May, [facility] [place] [facility] [address] [id number] [place] [address]- 5019 May, [facility] [place] [facility] [address] [id number] [place] [address]- 2026 May, [facility] [place] [facility] [address] [id number] [place] [address]- 7301 May, [facility] [place] [facility] [address] [id number] [place] 9730 May, [facility] [place] [facility] [address] [id number] [place] [address]- 5005 May, [facility] [place] [facility] [address] [id number] [place] [address]- 9077 May, [facility] [place] [facility] [address] [id number] [place] [address]- 4077 May, [facility] [place] [facility] [address] [id number] [place] [address]- 2305 May, [facility] [place] [facility] [address] [id number] [place] [address]- 0459 May, [facility] [place] [facility] [address] [id number] [place] [address]- 1226 Apr, [facility] [place] [facility] [address] [id number] [place] [address]- 8249 Apr, [facility] [place] [facility] [address] [id number] [place] [address]- 7044 Apr, [facility] [place] [facility] [address] [id number] [place] [address]- 0090 Apr, [facility] [place] [facility] [address] [id number] [place] [address]- 6074 Apr, [facility] [place] [facility] [address] [id number] [place] [address]- 6265 Apr, [facility] [place] [facility] [address] [id number] [place] [address]- 9450 Apr, [facility] [place] [facility] [address] [id number] [address]- 6642 Apr, [facility] [place] [facility] [address] [id number] [place] [address]- 6294 Apr, [facility] [place] [facility] [address] [id number] [place] [address]- 7065 Apr, [facility] [place] [facility] [address] [id number] [place] [address]- 8367 Apr, [facility] [place] [facility] [address] [id number] [place] [address]- 5487 Apr, [facility] [place] [facility] [address] [id number] [place] [address]- 5032 Mar, [facility] [place] [facility] [address] [id number] [place] [address]- 4158 Mar, [facility] [place] [facility] [address] [id number] [place] [address]- 7945 Mar, [facility] [place] [facility] [address] [id number] [place] [address]- 7740 Mar, [facility] [place] [facility] [address] [id number] [place] [address]- 5624 10 Feb, 2014 [facility] [place] [facility] [address] [id number] [place] [address]- 2161 Feb, [facility] [place] [facility] [address] [id number], [place] [address]- 5350 05 Feb, 2014 [facility] [place] [facility] [address] [id number], [place] [address]- 9789 05 Feb, 2014 [facility] [place] [facility] [address] [id number] [place] [address]- 8971 05 Feb, 2014 [facility] [place] [facility] [address] [id number] [place] [address]- 7258 05 Feb, 2014 [facility] [place] [facility] [address] [id number] [place] [address]- 1238 Jan, [facility] [place] [facility] [address] [id number] [place] [address]- 9362 Jan, [facility] [place] [facility] [address] [id number] [place] [address]- 0822 Jan, [facility] [place] [facility] [address] [id number] [place] [address]- 1792 Jan, [facility] [place] [facility] [address] [id number] [place] [address]- 3105 Jan, [facility] [place] [facility] [address] [id number] [place] [address]- 4756 Jan, [facility] [place] [facility] [address] [id number] [place] [address]- 3465 Jan, [facility] [place] [facility] [address] [id number] [place] [address]- 1417 Jan, [facility] [place] [facility] [address] [id number] [place] [address] Jan, [facility] [place] [facility] [address] [id number] [place] [address] Jan, [facility] [place] [facility] [address] [id number] [place] [address] Jan, [facility] [place] [facility] [address] [id number] [place] [address] Jan, [facility] [place] [facility] [address] [id number] [place] [address] Jan, [facility] [place] [facility] [address] [id number] [place] [address] Jan, [facility] [place] [facility] [address] [id number] [place] [address] Dec, [facility] [place] [facility] [address] [id number] [place] [address] Dec, [facility] [place] [facility] [address] [id number] [place] [address] Dec, [facility] [place] [facility] [address] [id number] [place] [address] Dec, [facility] [place] [facility] [address] [id number] [place] [address] Nov, [facility] [place] [facility] [address] [id number] [place] [address] Nov, [facility] [place] [facility] [address] [id number] [place] [address] Nov, [facility] [place] [facility] [address] [id number] [place] [address] Nov, [facility] [place] [facility] [address] [id number] [place] [address] Nov, [facility] [place] [facility] [address] [id number] [place] [address] October, [facility] [place] [facility] [address] [id number] [place] [address] October, [facility] [place] [facility] [address] [id number] [place] [address] October, [facility] [place] [facility] [address] [id number] [place] [address] October, [facility] [place] [facility] [address] [id number] [place] [address] October, [facility] [place] [facility] [address] [id number] [place] [address] October, [facility] [place] [facility] [address] [id number] [place] [address] October, [facility] [place] [facility] [address] [id number] [place] [address] October, [facility] [place] [facility] [address] [id number] [place] [address] 33[address] October, [facility] [place] [facility] [address] [id number] [place] [address] October, [facility] [address] [id number] [place] [address] 39[address] October, [facility] [place] [facility] [address] [id number] [place] [address] October, [facility] [place] [facility] [address] [id number] [place] [address] October, [facility] [place] [facility] [address] [id number] [place] [address] 79[address] October, [facility] [place] [facility] [address] [id number] [place] [address] Sep, [facility] [place] [facility] [address] [id number] [place] [address] Sep, [facility] [address] [id number] [place] [address] Sep, [facility] [place] [facility] [address] [id number] [place] [address] Sep, [facility] [place] [facility] [address] [id number] [place] [address] Sep, [facility] [place] [facility] [address] [id number] [place] [address] Sep, [facility] [place] [facility] [address] [id number] [place] [address] Sep, [facility] [place] [facility] [address] [id number] [place] [address] Sep, [facility] [place] [facility] [address] [id number] [place] [address] Sep, [facility] [place] [facility] [address] [id number] [place] [address] Sep, [facility] [place] [facility] [address] [id number] [place] [address] Sep, [facility] [place] [facility] [address] [address] [id number] [place] [address] Sep, [facility] [place] [facility] [address] [id number] [place] [address] Sep, [facility] [place] [facility] [address] [id number] [place] [address] Sep, [facility] [place] [facility] [address] [id number] [place] [address] 1998 Sep, [facility] [place] [facility] [address] [id number] [place] [address] 9431 Aug, [facility] [place] [facility] [address] [id number] [place] [address] 3831 Aug, [facility] [place] [facility] [address] [id number] [place] [address] 3749 Aug, [facility] [place] [facility] [address] [id number] [place] [address]- 5242 Aug, [facility] [place] [facility] [address] [id number] [place] [address] 4115 Jul, [facility] [place] [facility] [address] [id number] [place] [address] 4837 Jul, [facility] [place] [facility] [address] [id number] [place] [address] 2291 Jul, [facility] [place] [facility] [address] [id number] [place] [address] 8153 Jul, [facility] [place] [facility] [address] [id number] [place] [address] 6532 Jun, [facility] [place] [facility] [address] [id number] [place] [address] 0167 Jun, [facility] [place] [facility] [address] [id number] [place] [address] Jun, [facility] [place] [facility] [address] [id number] [address] 15 Jun, 2013 [facility] [place] [facility] [address] [id number] [place] [address]- 1504 Jun, [facility] [place] [facility] [address] [id number] [place] [address]- 5811 Jun, [facility] [place] [facility] [address] [id number] [place] [address]- 8812 Jun, [facility] [place] [facility] [address] [id number] [place] [address]- 0389 Jun, [facility] [place] [facility] [address] [id number] [place] [address]- 6031 20 May, 2013 [facility] [place] [facility] [address] [id number] [place] [address]- 4043 20 May, 2013 [facility] [place] [facility] [address] [id number] [place] [address]- 3107 18 May, 2013 [facility] [place] [facility] [address] [id number] [place] [address]- 4565 18 May, 2013 [facility] [place] [facility] [address] [id number] [place] [address]- 3960 17 May, 2013 [facility] [place] [facility] [address] [id number] [place] [address] 17 May, 2013 [facility] [place] [facility] [address] [id number] [place] [address]- 8479 17 May, 2013 [facility] [place] [facility] [address] [id number] [place] [address]- 9359 17 May, 2013 [facility] [place] [facility] [address] [id number] [place] [address]- 6228 16 May, 2013 [facility] [place] [facility] [address] [id number] [place] [address] 16 May, 2013 [facility] [place] [facility] [address] [id number] [place] [address]- 2348 14 May, 2013 [facility] [place] [facility] [address] [id number] [place] [address]- 9020 14 May, 2013 [facility] [address] [id number] [place] [address]- 0754 13 May, 2013 [facility] [address] [id number] [place] [address]- 7996 13 May, 2013 [facility] [address] [id number] [place] [address]- 2195 12 May, 2013 [facility] [address] [id number] [place] [address]- 9753 12 May, 2013 [facility] [address] [id number] [place] [address]- 3258 May, [facility] [address] [id number] [place] [address]- 4337 May, [facility] [address] [facility] [id number] [place] [address]- 8228 Apr, [facility] [address] [id number] [place] [address]- 1445 Apr, [facility] [address] [facility] [id number] [place] [address]- 5847 Apr, [facility] [address] [facility] [id number] [place] [address]- 8369 Apr, [facility] [address] [id number] [place] [address]- 5605 Aug, [facility] [address] [id number] [place] [address]- 4732 Aug, [facility] [address] [id number] [place] [address]- 2621 06 Aug, 2012 [facility] [address] [facility] [id number] [place] [address]- 2546 05 Aug, 2012 [facility] [address] [facility] [id number] [place] [address]- 3689 Jul, [facility] [address] [id number] [place] [address]- 0059 Jun, [facility] [place] [facility] [address] [id number] [place] [address]- 4336 Jun, [facility] [place] [facility] [address] [id number] [place] [address]- 8376 Jun, [facility] [place] [facility] [address] [id number] [place] [address]- 2976 Jun, [facility] [place] [facility] [address] [id number] [place] [address]- 8331 May, [facility] [place] [facility] [address] [id number] [place] [address]- 9786 May, [facility] [place] [facility] [address] [id number] [place] [address]- 3256 May, [facility] [place] [facility] [address] [id number] [place] [address]- 5739 May, [facility] [place] [facility] [address] [id number] [place] [address]- 0986 May, [facility] [place] [facility] [address] [facility] [id number], [place] [address]- 8537 May, [facility] [place] [facility] [address] [id number], [place] [address]- 9904 May, [facility] [place] [facility] [address] [id number], [place] [address]- 8896 Apr, [facility] [place] [facility] [address] [id number] [place] [address]- 8926 Apr, [facility] [place] [facility] [address] [id number] [place] [address]- 4706 Apr, [facility] [place] [facility] [address] [id number], [place] [address]- 2166 Apr, [facility] [place] [facility] [address] [id number], [place] [address]- 2576 Apr, [facility] [place] [facility] [address] [id number] [place] [address]- 2779 Apr, [facility] [place] [facility] [address] [facility] [id number], [place] [address]- 3394 Apr, [facility] [place] [facility] [address] [facility] [id number] [place] [address]- 2049 Mar, [facility] [place] [facility] [address] [id number], [place] [address]- 7717 Mar, [facility] [place] [facility] [address] [facility] [id number] [place] [address], [place] [address]- 3163 Mar, [facility] [place] [facility] [address] [facility] [id number], [place] [address]- 8444 Mar, [facility] [place] [facility] [address] [facility] [id number] [place] [address] 0235 Mar, [facility] [place] [facility] [address] [facility] [id number], [place] [address]- 7980 Mar, [facility] [place] [facility] [address] [facility] [id number], [place] [address]- 3986 Mar, [facility] [place] [facility] [address] [facility] [id number], [place] [address]- 5667 Mar, [facility] [place] [facility] [address] [facility] [id number], [place] [address]- 0414 Mar, [facility] [place] [facility] [address] [facility] [id number], [place] [address]- 5495 Mar, [facility] [place] [facility] [address] [facility] [id number], [place] [address]- 8848 Mar, [facility] [place] [facility] [address] [facility] [id number], [place] [address]- 8771 Mar, [facility] [place] [facility] [address] [facility] [id number], [place] [address]- 4601 Feb, [facility] [place] [facility] [address] [id number] [place] [address] 2546 Jan, [facility] [place] [facility] [address] [id number] [place] [address]- 6296 Jan, [facility] [place] [facility] [address] [id number] [place] [address]- 2546 Jan, [facility] [place] [facility] [address] [id number] [place] [address]- 8966 Jan, [facility] [place] [facility] [address] [id number] [place] [address]- 7626 Jan, [facility] [place] [facility] [address] [id number] [place] [address]- 1321 Dec, [facility] [place] [facility] [address] [id number] [place] [address]- 5596 Dec, [facility] [place] [facility] [address] [id number] [place] [address]- 2397 Nov, [facility] [place] [facility] [address] [id number] [place] [address]- 5770 Nov, [facility] [place] [facility] [address] [id number] [place] [address]- 6387 Nov, [facility] [place] [facility] [address] [id number] [place] [address]- 5018 October, [facility] [place] [facility] [address] [id number] [place] [address]- 1027 October, [facility] [place] [facility] [address] [id number] [place] [address]- 7515 October, [facility] [place] [facility] [address] [id number] [place] [address]- 9337 October, [facility] [place] [facility] [address] [id number] [place] [address]- 2126 October, [facility] [place] [facility] [address] [id number] [place] [address]- 8331 October, [facility] [address] [id number] [place] [address]- 6481 October, [facility] [place] [facility] [address] [id number] [place] [address]- 7703 Sep, [facility] [address] [id number] [place] [address]- 2061 Sep, [facility] [place] [facility] [address] [id number] [place] [address]- 7434 Sep, [facility] [address] [id number] [place] [address]- 4765 Sep, [facility] [place] [facility] [address] [id number] [place] [address]- 9914 24 Sep, 2011 [facility] [address] [id number] [place] [address]- 1699 Sep, [facility] [place] [facility] [address] [id number] [place] [address]- 7787 17 Sep, 2011 [facility] [place] [facility] [address] [id number] [place] [address]- 6632 16 Sep, 2011 [facility] [place] [facility] [address] [id number] [place] [address]- 8344 16 Sep, 2011 [facility] [place] [facility] [address] [id number] [place] [address]- 2170 14 Sep, 2011 [facility] [place] [facility] [address] [id number], [place] [address]- 4539 13 Sep, 2011 [facility] [place] [facility] [address] [id number] [place] [address]- 0238 10 Sep, 2011 [facility] [place] [facility] [address] [id number] [place] [address]- 2956 09 Sep, 2011 [facility] [place] [facility] [address] [id number] [place] [address]- 3092 27 Aug, 2011 [facility] [place] [facility] [address] [id number] [place] [address]- 2930 12 Aug, 2011 [facility] [address] [id number] [place] [address]- 8387 08 Aug, 2011 [facility] [place] [facility] [address] [id number] [place] [address] 2546 06 Aug, 2011 [facility] [place] [facility] [address] [id number] [place] [address]- 2646 28 Jul, 2011 [facility] [place] [facility] [address] [id number] [place] [address] 2549 22 Jul, 2011 [facility] [place] [facility] [address] [id number] [place] [address]- 1916 16 Jul, 2011 [facility] [place] [facility] [address] [id number] [place] [address]- 9366 15 Jul, 2011 [facility] [place] [facility] [address] [id number] [place] [address]- 5415 14 Jul, 2011 [facility] [address] [id number] [place] [address]- 4044 10 Jul, 2011 [facility] [place] [facility] [address] [id number] [place] [address]- 7013 Jun, [facility] [place] [facility] [address] [facility] [id number] [place] [address]- 1431 Jun, [facility] [place] [facility] [address] [id number] [place] [address]- 8465 Jun, [facility] [place] [facility] [address] [id number] [place] [address] 2543 Jun, [facility] [place] [facility] [address] [id number] [place] [address]- 7896 Jun, [facility] [place] [facility] [address] [id number] [place] [address] 2546 May, [facility] [place] [facility] [address] [id number] [place] [address]- 0250 May, [facility] [place] [facility] [address] [id number] [place] [address]- 3560 14 May, 2011 [facility] [place] [facility] [address] [id number] [place] [address]- 9729 14 May, 2011 [facility] [place] [facility] [address] [id number] [place] [address]- 8954 May, [facility] [place] [facility] [address] [id number] [place] [address]- 1179 07 May, 2011 [facility] [place] [facility] [address] [id number] [place] [address]- 2106 05 May, 2011 [facility] [place] [facility] [address] [id number] [place] [address]- 6808 15 Apr, 2011 [facility] [place] [facility] [address] [id number] [place] [address]- 8567 Apr, [facility] [place] [facility] [address] [id number] [place] [address]- 3900 Apr, [facility] [place] [facility] [address] [id number] [place] [address]- 9016 Apr, [facility] [place] [facility] [address] [id number], [place] [address]- 4829 Apr, [facility] [place] [facility] [address] [id number], [place] [address]- 3257 Apr, [facility] [place] [facility] [address] [id number], [place] [address]- 5848 Mar, [facility] [place] [facility] [address] [id number] [place] [address]- 1940 Mar, [facility] [place] [facility] [address] [id number], [place] [address]- 7589 Mar, [facility] [place] [facility] [address] [id number] [place] [address]- 4111 Mar, [facility] [place] [facility] [address] [id number] [place] [address]- 3682 Jan, [facility] [place] [facility] [address] [id number] [place] [address]- 5252 19 Dec, 2010 [facility] [place] [facility] [address] [id number] [place] [address]- 1946 13 Dec, 2010 [facility] [place] [facility] [address] [id number] [place] [address]- 0476 October, [facility] [place] [facility] [address] [id number] [place] [address]- 5529 Sep, [facility] [place] [facility] [address] [id number] [place] [address]- 5764 14 Sep, 2010 [facility] [place] [facility] [address] [id number] [place] [address]- 6986 17 Jul, 2010 [facility] [place] [facility] [address] [id number] [place] [address]- 1107 16 Jul, 2010 [facility] [place] [facility] [address] [id number] [place] [address]- 5647 31 May, 2010 [facility] [place] [facility] [address] [id number] [place] [address]- 1260 27 May, 2010 [facility] [place] [facility] [address] [id number] [place] [address]- 3430 08 May, 2010 [facility] [place] [facility] [address] [id number] [place] [address]- 2562 May, [facility] [place] [facility] [address] [id number] [place] [address]- 7124 Apr, [facility] [place] [facility] [address] [id number] [place] [address]- 9674 Apr, [facility] [place] [facility] [address] [id number] [place] [address]- 3509 Apr, [facility] [place] [facility] [address] [id number] [place] 8508 Apr, [facility] [place] [facility] [address] [id number] [place] [address]- 4560 Apr, [facility] [place] [facility] [address] [id number] [place] [address]- 3306 21 Mar, 2010 [facility] [place] [facility] [address] [id number] [place] [address]- 0583 14 Mar, 2010 [facility] [place] [facility] [address] [id number] [place] [address], [place] [address]- 1872 13 Mar, 2010 [facility] [place] [facility] [address] [id number] [place] [address]- 7302 12 Mar, 2010 [facility] [place] [facility] [address] [id number] [place] [address]- 6335 Jan, [facility] [place] [facility] [address] [id number] [place] [address]- 0765 Dec, [facility] [place] [facility] [address] [id number] [place] [address]- 4345 Sep, [facility] [place] [facility] [address] [id number] [place] [address]- 6509 May, [facility] [place] [facility] [address] [id number] [place] [address]- 1004 May, [facility] [place] [facility] [address] [id number] [place] [address]- 3668 May, [facility] [place] [facility] [address] [id number], [place] [address]- 0178 Apr, [facility] [place] [facility] [address] [id number] [place] [address]- 6290 17 Apr, 2009 [facility] [place] [facility] [address] [id number] [place] [address]- 0880 Apr, [facility] [place] [facility] [address] [id number] [place] [address]- 2732 10 Apr, 2009 [facility] [place] [facility] [address] [id number] [place] [address]- 2546 Apr, [facility] [address] [facility] [id number], [place] [address]- 9096 Mar, [facility] [address] [facility] [id number], [place] [address]- 8446 Mar, [facility] [address] [facility] [id number], [place] [address]- 6576 Jul, IMMUNIZATIONS No Known Immunizations SOCIAL HISTORY Never Assessed REASON FOR VISIT f/u care -- america velásquez, patient states she is taking iron, vit D , vit B12 shot, tramadol just doesn't remember mgs PLAN OF CARE Activity Details Follow Up after sleep study Reason: VITAL SIGNS Height 62 in 2017-07-09 Weight 259.0 lbs 2017-07-09 Temperature 97.5 degrees Fahrenheit 2017-07-09 Heart Rate 72 bpm 2017-07-09 Respiratory Rate 18 2017-07-09 BMI 47.37 kg/m2 2017-07-09 Blood pressure systolic 130 mmHg 2017-07-09 Blood pressure diastolic 70 mmHg 2017-07-09 MEDICATIONS Medication Instructions Dosage Frequency Start Date End Date Duration Status Doxycycline Hyclate 100 MG Orally every 12 hrs 1 capsule 12h Active Estradiol 0.5 MG Orally Once a day 2 tablet by Oral route 1 time per day 24h Apr, Active Ropinirole HCl 4 MG Orally Once a day 1 tablet before bedtime 24h 30 days Active Nac 600 600 MG Orally Once with evening meal for hair pulling 1 capsule October, Active Mupirocin 2 % Externally Three times a day 1 application to affected area 8h Not-Taking Benadryl 25 MG Orally at bedtime as needed for sleep 1-2 capsule as needed Not-Taking Hydrocodone-Acetaminophen 5-325 MG Orally every 6 hrs 1 tablet as needed 6h Active Prozac 40 MG Orally Once a day for depression 1 capsules Active Esoterica Regular 2 % Active Albuterol Sulfate (2.5 MG/3ML) 0.083% Inhalation Three times a day 3 ml 8h Jun, Not-Taking Ondansetron HCl 8 mg 1 tablet by Oral route every 8 hours PRN Jul, Active Zenpep 58347 UNIT Orally 3 times a day 1 tablet 8h Not-Taking Ibuprofen 800 MG Orally Three times a day take 1 tablet (800 mg) by oral route 3 times per day with food 8h Mar, 30 days Not-Taking RESULTS Name Result Date Reference Range UA W/CULTURE IF INDICATED (IN HOUSE) 2017-07-09 Lot # [id number] Exp date 03/04 Clarity dark yellow Color slightly cloudy Odor no GLU negative LISA negative KET negative SG 1.025 BLO negative pH 6.0 Protein trace URO 0.2 NIT negative ALEKSEY negative Lot # Exp date PROCEDURES Procedure Date Ordered Result Body Site URINALYSIS, AUTO, W/O SCOPE Jul 09, 2017 [facility] VISIT ESTABLISHED PATIENT Jul 09, 2017 INSTRUCTIONS MEDICATIONS ADMINISTERED No Known [...] 08/2017 Surgical History nephrectomy 03/2017 Hospitalization History Cellulitis-[facility] 12/20/15 Hospital[facility]- Abd pain 03/07/2017 Hospital[facility]- Abd pain 03/14/2017 [facility]- No bowel movement, rash 04/13/2017 Hospitalization History [facility]- Abd pain r/t kidney surgery on 04/17/2017 Hospitalization History [facility]- Abd pain r/t kidney surgery on 04/18/2017 Hospitalization History [facility]- Lower abd pain 04/30/2017 Hospitalization History [facility]- Cannot urinate 05/30/2017 Hospitalization History [facility]- Pancreatitis Sx 06/29/2017 Hospitalization History [facility]- Stomach pain 07/22/2017 Hospitalization History [facility]- Left side pain 08/12/2017 Hospitalization History [facility]- Incision site infection 08/30/2017 Hospitalization History [facility]- Post Op Seroma/Hematoma Left Abdomen. Discharged 09/04/17- Dr Daniel 09/02/2017 Hospitalization History [facility]- Right shoulder and back pain 2017
--- OUTSIDE RECORDS SUMMARY | 2017-12-18 01:37 | XMS REPORT ---
Author Author SAI CARMEN [facility] Address [address] [place] [address] Care Team Providers Care Clearing Distribution Clerk Name Role Phone CARMEN GIBBS Unavailable PROBLEMS Type Condition ICD9-CM Code DVS63-LU Code Onset Dates Condition Status SNOMED Code Problem Asthma J45.909 Active 465973222 Problem Atelectasis J98.11 Active 09852996 Problem Polydipsia R63.1 Active 00622600 Problem Chronic fatigue R53.82 Active 29586607 Problem Moderate episode of recurrent major depressive disorder F33.1 Active 239072805 Problem Generalized social phobia F40.11 Active 82807620 Problem Trichotillomania F63.3 Active 14541335 Problem Restless leg syndrome G25.81 Active 25034505 Problem Chronic post-traumatic stress disorder (PTSD) F43.12 Active 249323374 Problem History of renal cell carcinoma Z85.528 Active 818626576 Problem Nodule of left lung R91.1 Active 491729327 Problem Chronic tension-type headache, intractable G44.221 Active 484431591 Problem Hyperlipidemia, mixed E78.2 Active 613178068 Problem Hirsuties L68.0 Active 713112321 Problem Morbid (severe) obesity due to excess calories E66.01 Active 334853629 Problem FH: polycystic ovary Z84.2 Active 230459922 Problem Chronic pancreatitis K86.1 Active 366623365 ALLERGIES No Information ENCOUNTERS Encounter Location Date Diagnosis [facility] [address] [facility] [id number] [address] Feb, [facility] [address] [id number] [address] 16[address] Dec, [facility] [address] [facility] [id number], [place] [address] Nov, [facility] [address], [place] [address] Nov, [place] [id number] [place] [address] 61924- 0437 Nov, Hyperlipidemia, mixed E78.2 [facility] [id number] [place] [address]90 -3584 Nov, Acute suppurative otitis media of right ear without spontaneous rupture of tympanic membrane, recurrence not specified H66.001 and BMI 45.0-49.9, adult Z68.42 [place] [id number] [place] [address] 51493- 8218 Nov, Hyperlipidemia, mixed E78.2 [place] [id number] [place] [address] 64999- 7685 Nov, [place] [id number] [place] [address] 92731- 8757 Nov, [place] [id number] [place] [address] 49567- 7016 Nov, Nodule of left lung R91.1 [place] [id number] [place] [address] 32723- 9888 Nov, Medicare annual wellness visit, initial Z00.00 [...] adult Z68.42 and Encounter for immunization Z23 [place] [id number] [place] [address] 16382- 3185 October, [place] [id number] [place] [address] 67734- 2492 October, Nodule of left lung R91.1 [facility] [id number] [place] [address] 24662- 8767 October, Nodule of left lung R91.1 [place] [id number] [place] [address] 45724- 4239 October, Recurrent major depressive disorder, in partial remission F33.41 ; Restless leg syndrome G25.81 ; Generalized social phobia F40.11 ; Chronic post-traumatic stress disorder (PTSD) F43.12 ; BMI 45.0-49.9, adult Z68.42 and Trichotillomania F63.3 [place] [id number] [place] [address] 30943- 7755 October, [place] [id number] [place] [address] 41811- 1562 Sep, Chronic fatigue R53.82 and BMI 45.0-49.9, adult Z68.42 [place] [id number] [place] [address] 90525- 6556 Aug, [place] [id number] [place] [address] 23235- 3738 Jul, Restless leg syndrome G25.81 and B12 deficiency E53.8 [place] [id number] [place] [address] 38287- 8121 Jul, [place] [id number] [place] [address] 41979- 4116 Jul, [place] [id number] [place] [address] 16176- 1983 Jun, [place] [id number] [place] [address] 16375- 5329 Jun, Fatigue, unspecified type R53.83 ; History of renal cell carcinoma Z85.528 ; Chronic pancreatitis K86.1 ; Restless leg syndrome G25.81 ; Dark urine R82.99 and BMI 45.0-49.9, adult Z68.42 [place] [address], [place] [address] 4138 Jun, [facility] [address], [place] [address] 2804 Jun, [facility] [address], [place] [address]- 3475 Jun, [facility] [id number] [place] [address] 34898- 7271 Jun, [facility] [address], [place] [address] 6936 May, Chronic post-traumatic stress disorder (PTSD) F43.12 ; Moderate episode of recurrent major depressive disorder F33.1 ; Trichotillomania F63.3 and Generalized social phobia F40.11 [place] [address], [place] [address] 6275 May, [place] [address], [place] [address] 8304 May, Chronic post-traumatic stress disorder (PTSD) F43.12 ; Moderate episode of recurrent major depressive disorder F33.1 ; Trichotillomania F63.3 and Generalized social phobia F40.11 [place] [address], [place] [address]- 4632 May, Hyperlipidemia, mixed E78.2 ; Morbid (severe) obesity due to excess calories E66.01 ; Chronic post-traumatic stress disorder (PTSD) F43.12 ; Moderate episode of recurrent major depressive disorder F33.1 ; Trichotillomania F63.3 and Generalized social phobia F40.11 [place] [address], [place] [address]- 3778 Apr, [place] [address] [id number], [place] [address]- 9348 Apr, Hyperlipidemia, mixed E78.2 ; Morbid (severe) obesity due to excess calories E66.01 ; Chronic post-traumatic stress disorder (PTSD) F43.12 ; Moderate episode of recurrent major depressive disorder F33.1 ; Trichotillomania F63.3 and Generalized social phobia F40.11 [facility] [id number] [place] [address] 46418- 0184 Apr, Trichotillomania F63.3 ; Generalized social phobia F40.11 ; Chronic post-traumatic stress disorder (PTSD) F43.12 and Moderate episode of recurrent major depressive disorder F33.1 [place] [id number] [place] [address] 49450- 9387 Apr, [place] [id number] [place] [address] 59330- 3173 Apr, [place] [id number] [place] [address] 27975- 6390 Mar, Moderate episode of recurrent major depressive disorder F33.1 ; Trichotillomania F63.3 ; Chronic post-traumatic stress disorder (PTSD) F43.12 ; Generalized social phobia F40.11 and Restless leg syndrome G25.81 [place] [id number] [place] [address] 18341- 4948 Mar, [place] [id number] [place] [address] 29966- 2803 Mar, [place] [id number] [place] [address] 10961- 6835 Feb, Left kidney mass N28.89 [facility] [id number] [place] [address] 16610- 3561 Jan, [facility] [id number] [place] [address] 04429- 1258 Dec, Polydipsia R63.1 ; Chronic pancreatitis K86.1 and Fatigue, unspecified type R53.83 [facility] [id number] [place] [address] 28261- 6074 Nov, [place] [address] [place] [address]- 3929 13 Nov, 2016 [facility] [id number] [place] [address] 07427- 5973 Nov, Headache around the eyes R51 [facility] [id number] [place] [address] 82634- 3146 Nov, [facility] [id number] [place] [address] 70534- 5006 October, STD exposure Z20.2 [facility] [id number] [place] [address] 75310- 4876 October, STD exposure Z20.2 [facility] [id number] [place] [address] 57558- 1722 October, Chronic post-traumatic stress disorder (PTSD) F43.12 ; Generalized social phobia F40.11 ; Trichotillomania F63.3 and Restless leg syndrome G25.81 [facility] [id number] [place] [address] 10706- 1561 October, [facility] [id number] [place] [address] 14852- 9877 Sep, [facility] [id number] [place] [address] 12550- 3398 Aug, [facility] [id number] [place] [address] 79108- 3793 Aug, [facility] [id number] [place] [address] 91360- 1766 08 Aug, 2016 Neck mass R22.1 [facility] [id number] [place] [address] 34802- 0188 03 Aug, 2016 Atelectasis J98.11 [facility] [address] [place] [address] 50530- 2992 28 Jul, 2016 Hyperlipidemia, mixed E78.2 ; Atypical pneumonia J18.9 and Neck mass R22.1 [place] [id number] [place] [address] 36878- 9097 15 Jul, 2016 Hemoptysis R04.2 [place] [id number] [place] [address] 77856- 4306 08 Jul, 2016 Acute non-recurrent pansinusitis J01.40 ; Hemoptysis R04.2 ; Polydipsia R63.1 and Malaise R53.81 [facility] [place] [id number] [place] [address] 62565 -8974 May, Other viral agents as the cause of diseases classified elsewhere B97.89 and Acute upper respiratory infection, unspecified J06.9 [facility] [place] [id number] [place] [address] 21824 -8914 Mar, Nausea R11.0 [facility] [address] 96761 -9728 Dec, Hives L50.9 [place] [id number] [place] [address] 34278- 4782 Dec, [facility] [address] [id number] [place] [address] 40596 -8351 Dec, Cutaneous abscess of limb, unspecified L02.419 ; Cellulitis of unspecified part of limb L03.119 ; Encounter for incision and drainage procedure Z01.89 and Encounter for recheck of abscess following incision and drainage Z09 [facility] IN [place] [id number] [place] [address] 40288 -8583 09 Dec, 2015 Abscess of leg, right L02.415 [place] [id number] [place] [address] 13642- 1074 Dec, Cellulitis of unspecified part of limb L03.119 and Cutaneous abscess of limb, unspecified L02.419 [place] [id number] [place] [address] 64094- 7640 Dec, [place] [address] [place] [address]- 1897 Dec, [facility] [id number] [place] [address] 22653 -2430 Aug, [facility] [id number] [place] [address] 65118- 1369 Aug, [facility] [id number] [place] [address] 14332 -4152 04 Jul, 2015 Pain in unspecified wrist M25.539 and Back pain, thoracic M54.6 [facility] [id number] [place] [address] 58325 -4191 13 Jun, 2015 Strain of right wrist, initial encounter S66.911A [place] [id number] [place] [address] 77670- 2306 11 Jun, 2015 Chronic pancreatitis, unspecified pancreatitis type K86.1 ; Hirsuties L68.0 ; Morbid (severe) obesity due to excess calories E66.01 ; Chronic pancreatitis K86.1 and Asthma J45.909 [place] [id number] [place] [address] 22287- 9205 May, [place] [id number] [place] [address] 19286- 3005 09 May, 2015 Hyperlipidemia, mixed E78.2 and Muscle spasm of back M62.830 [place] [id number] [place] [address] 06843- 9950 30 Apr, 2015 [place] [id number] [place] [address] 68625- 7161 16 Apr, 2015 Torticollis M43.6 [place] [id number] [place] [address] 30874- 6005 09 Apr, 2015 Right-sided thoracic back pain M54.6 [place] [id number] [place] [address] 89030- 2765 15 Mar, 2015 Rash R21 [place] [id number] [address]- 0569 Mar, [facility] [address], [place] [address]- 7427 Jan, [facility] [address] [place] [address] 76647- 0207 Dec, [facility] [id number] [place] [address] 37242- 1785 Dec, Urinary frequency 788.41 and Nocturia more than twice per night 788.43 [facility] [address] [place] [address] 62566- 2417 Nov, [facility] [id number] [place] [address] 96413- 6712 Nov, [facility] [id number] [place] [address] 52527- 2712 Nov, Abdominal pain 789.00 [facility] [id number] [address]- 8269 October, TDAP DX V06.1 [facility] [id number] [place] [address] 65332- 1628 October, [facility] [address], [place] [address]- 5982 October, Disturbance of skin sensation 782.0 ; Wrist pain, right 719.43 ; Hyperlipidemia 272.4 and Skin lesion of face 709.9 [facility] [address], [place] [address]- 1350 Sep, [facility] [address] [place] [address] 63397- 8135 Sep, [facility] [address] 7028 Aug, [facility] [address] [place] [address] 00472- 0929 Aug, [facility] [place] [facility] [address] [id number] [place] [address]- 9933 Aug, [facility] [place] [facility] [address] [id number] [place] [address]- 4306 Aug, [facility] [place] [facility] [address] [id number] [place] [address]- 1936 16 Aug, 2014 [facility] [place] [facility] [address] [id number] [place] [address]- 3355 16 Aug, 2014 [facility] [place] [facility] [address] [id number] [place] [address]- 2841 Aug, [facility] [place] [facility] [address] [id number] [place] [address]- 9753 14 Aug, 2014 [facility] [place] [facility] [address] [id number] [place] [address]- 8785 Aug, [facility] [place] [facility] [address] [id number] [place] [address]- 7393 Aug, [facility] [place] [facility] [address] [id number] [place] [address]- 1516 Aug, [facility] [place] [facility] [address] [id number] [place] [address]- 5985 Aug, [facility] [place] [facility] [address] [id number] [place] [address]- 4502 Aug, [facility] [place] [facility] [address] [id number] [place] [address]- 4169 Aug, [facility] [place] [facility] [address] [id number] [place] [address]- 6107 Jul, [facility] [place] [facility] [address] [id number] [place] [address]- 9479 Jul, [facility] [place] [facility] [address] [id number] [place] [address]- 6467 Jul, [facility] [place] [facility] [address] [id number], [place] [address]- 5011 Jul, [facility] [address] [id number] [place] [address]- 5058 Jul, [facility] [place] [facility] [address] [id number] [place] [address]- 9647 Jul, [facility] [place] [facility] [address] [id number] [place] [address]- 5040 Jun, [facility] [place] [facility] [address] [id number] [place] [address]- 1850 Jun, [facility] [place] [facility] [address] [id number] [place] [address]- 7901 Jun, [facility] [place] [facility] [address] [id number] [place] [address]- 2209 Jun, [facility] [address] [id number] [place] [address]- 0233 Jun, [facility] [place] [facility] [address] [id number] [place] [address]- 8342 Jun, [facility] [address] [id number] [place] [address]- 3041 Jun, [facility] [address] [facility] [id number] [place] [address]- 4372 Jun, [facility] [place] [facility] [address] [id number] [place] [address]- 1406 May, [facility] [place] [facility] [address] [id number], [place] [address]- 0907 May, [facility] [place] [facility] [address] [id number] [place] [address]- 8737 18 May, 2014 [facility] [place] [facility] [address] [id number] [place] [address]- 6161 18 May, 2014 [facility] [place] [facility] [address] [facility] [id number], [place] [address]- 0978 15 May, 2014 [facility] [place] [facility] [address] [id number] [place] [address]- 3731 May, [facility] [place] [facility] [address] [id number] [place] [address]- 9631 May, [facility] [place] [facility] [address] [id number] [place] [address]- 2976 May, [facility] [place] [facility] [address] [id number] [place] [address]- 3085 May, [facility] [place] [facility] [address] [id number] [place] [address]- 8027 May, [facility] [place] [facility] [address] [id number] [place] [address]- 7000 May, [facility] [place] [facility] [address] [id number] [place] [address]- 2477 May, [facility] [place] [facility] [address] [id number] [place] [address]- 8055 Apr, [facility] [place] [facility] [address] [id number] [place] [address]- 0498 Apr, [facility] [place] [facility] [address] [id number] [place] [address]- 1945 Apr, [facility] [place] [facility] [address] [id number] [place] [address]- 5062 Apr, [facility] [place] [facility] [address] [id number] [place] [address]- 1592 Apr, [facility] [place] [facility] [address] [id number] [place] [address]- 3359 Apr, [facility] [place] [facility] [address] [id number] [place] [address]- 5541 Apr, [facility] [place] [facility] [address] [id number] [place] [address]- 3894 Apr, [facility] [place] [facility] [address] [id number] [place] [address]- 1147 Apr, [facility] [place] [facility] [address] [id number] [place] [address]- 9498 Apr, [facility] [place] [facility] [address] [id number] [place] [address]- 8587 Apr, [facility] [place] [facility] [address] [id number] [place] [address]- 8208 Apr, [facility] [place] [facility] [address] [id number] [place] [address]- 3912 Mar, [facility] [place] [facility] [address] [id number] [place] [address]- 1748 Mar, [facility] [place] [facility] [address] [id number] [place] [address]- 9430 Mar, [facility] [place] [facility] [address] [id number] [place] [address]- 7974 Mar, [facility] [place] [facility] [address] [id number] [place] [address]- 0765 10 Feb, 2014 [facility] [place] [facility] [address] [id number] [place] [address]- 3804 10 Feb, 2014 [facility] [place] [facility] [address] [id number] [place] [address]- 2022 05 Feb, 2014 [facility] [place] [facility] [address] [id number] [place] [address]- 6395 05 Feb, 2014 [facility] [place] [facility] [address] [id number], [place] [address]- 5059 05 Feb, 2014 [facility] [place] [facility] [address] [id number] [place] [address]- 6522 Feb, [facility] [place] [facility] [address] [id number] [place] [address]- 2109 Jan, [facility] [place] [facility] [address] [id number] [place] [address]- 0007 Jan, [facility] [place] [facility] [address] [id number] [place] [address] Jan, [facility] [place] [facility] [address] [id number] [place] [address] Jan, [facility] [place] [facility] [address] [id number] [place] [address] Jan, [facility] [place] [facility] [address] [id number] [place] [address] Jan, [facility] [place] [facility] [address] [id number] [place] [address] Jan, [facility] [place] [facility] [address] [id number] [place] [address] Jan, [facility] [place] [facility] [address] [id number] [place] [address] Jan, [facility] [place] [facility] [address] [id number] [place] [address] Jan, [facility] [place] [facility] [address] [id number] [place] [address] Jan, [facility] [place] [facility] [address] [id number] [place] [address] Jan, [facility] [place] [facility] [address] [id number] [place] [address] Jan, [facility] [place] [facility] [address] [id number] [place] [address] Jan, [facility] [place] [facility] [address] [id number] [place] [address] Dec, [facility] [place] [facility] [address] [id number] [place] [address] Dec, [facility] [place] [facility] [address] [id number] [place] [address] Dec, [facility] [place] [facility] [address] [id number] [place] [address] Dec, [facility] [place] [facility] [address] [id number] [place] [address] Nov, [facility] [place] [facility] [address] [id number] [place] [address] Nov, [facility] [place] [facility] [address] [id number] [place] [address] Nov, [facility] [place] [facility] [address] [id number] [place] [address] Nov, [facility] [place] [facility] [address] [id number] [place] [address] Nov, [facility] [place] [facility] [address] [id number] [place] [address] October, [facility] [place] [facility] [address] [id number] [place] [address] October, [facility] [place] [facility] [address] [id number] [place] [address] October, [facility] [place] [facility] [address] [id number] [place] [address] October, [facility] [place] [facility] [address] [id number] [place] [address] October, [facility] [place] [facility] [address] [id number] [place] [address] October, [facility] [place] [facility] [address] [id number] [place] [address] October, [facility] [place] [facility] [address] [id number] [place] [address] October, [facility] [place] [facility] [address] [id number] [place] [address] October, [facility] [place] [facility] [address] [id number] [place] [address] October, [facility] [place] [facility] [address] [id number] [place] [address] October, [facility] [place] [facility] [address] [id number] [place] [address] October, [facility] [place] [facility] [address] [id number] [place] [address] October, [facility] [place] [facility] [address] [id number] [place] [address] October, [facility] [place] [facility] [address] [id number] [place] [address] Sep, [facility] [place] [facility] [address] [id number] [place] [address] Sep, [facility] [place] [facility] [address] [id number] [place] [address] Sep, [facility] [place] [facility] [address] [id number] [place] [address] Sep, [facility] [place] [facility] [address] [id number] [place] [address] Sep, [facility] [place] [facility] [address] [id number] [place] [address] Sep, [facility] [place] [facility] [address] [id number] [place] [address] Sep, [facility] [place] [facility] [address] [id number] [place] [address] Sep, [facility] [place] [facility] [address] [id number] [place] [address] Sep, [facility] [place] [facility] [address] [id number] [place] [address] 9265 Sep, [facility] [place] [facility] [address] [id number] [place] [address] 1219 Sep, [facility] [place] [facility] [address] [id number] [place] [address]- 1413 Sep, [facility] [place] [facility] [address] [id number] [place] [address]- 9845 Sep, [facility] [place] [facility] [address] [id number] [place] [address]- 9580 Sep, [facility] [place] [facility] [address] [id number] [place] [address] 3853 Sep, [facility] [place] [facility] [address] [id number] [place] [address]- 8354 Aug, [facility] [place] [facility] [address] [id number] [place] [address]- 3552 Aug, [facility] [place] [facility] [address] [id number] [place] [address]- 7762 Aug, [facility] [place] [facility] [address] [id number] [place] [address]- 0405 Aug, [facility] [place] [facility] [address] [id number] [place] [address]- 3229 Jul, [facility] [place] [facility] [address] [id number] [place] [address]- 8672 Jul, [facility] [place] [facility] [address] [id number] [place] [address]- 3580 Jul, [facility] [place] [facility] [address] [id number] [place] [address]- 7412 Jul, [facility] [place] [facility] [address] [id number] [place] [address]- 5697 Jun, [facility] [place] [facility] [address] [id number] [place] [address]- 4817 Jun, [facility] [place] [facility] [address] [id number] [place] [address]- 5944 Jun, [facility] [place] [facility] [address] [id number] [place] [address]- 4491 Jun, [facility] [place] [facility] [address] [id number] [place] [address]- 0256 10 Jun, 2013 [facility] [place] [facility] [address] [id number] [place] [address]- 1329 10 Jun, 2013 [facility] [place] [facility] [address] [id number] [place] [address]- 6041 08 Jun, 2013 [facility] [place] [facility] [address] [id number] [place] [address]- 5666 Jun, [facility] [place] [facility] [address] [id number] [place] [address]- 9428 20 May, 2013 [facility] [place] [facility] [address] [id number] [place] 20 May, 2013 [facility] [place] [facility] [address] [id number] [place] [address]- 9627 18 May, 2013 [facility] [place] [facility] [address] [id number] [place] [address]- 5813 18 May, 2013 [facility] [place] [facility] [address] [id number] [place] [address]- 1557 17 May, 2013 [facility] [place] [facility] [address] [id number] [place] [address] 17 May, 2013 [facility] [place] [facility] [address] [id number] [place] [address]- 7607 17 May, 2013 [facility] [place] [facility] [address] [id number] [place] [address]- 7459 17 May, 2013 [facility] [place] [facility] [address] [id number], [place] [address]- 4573 16 May, 2013 [facility] [place] [facility] [address] [id number] [place] [address]- 4352 16 May, 2013 [facility] [place] [facility] [address] [id number] [place] [address]- 5760 14 May, 2013 [facility] [place] [facility] [address] [id number] [place] [address]- 4690 14 May, 2013 [facility] [place] [facility] [address] [id number] [place] [address] 13 May, 2013 [facility] [address] [id number] [place] [address]- 5282 May, [facility] [place] [facility] [address] [id number] [place] [address]- 8087 May, [facility] [address] [id number] [place] [address]- 2352 May, [facility] [place] [facility] [address] [id number] [place] [address]- 7091 May, [facility] [address] [id number] [place] [address]- 2866 May, [facility] [address] [id number] [place] [address]- 1851 Apr, [facility] [address] [id number] [place] [address]- 0034 Apr, [facility] [address] [id number] [place] [address]- 9909 Apr, [facility] [address] [id number] [place] [address]- 3864 Apr, [facility] [address] [facility] [id number] [place] [address]- 3912 Aug, [facility] [address] [id number] [place] [address]- 7543 Aug, [facility] [place] [facility] [address] [id number] [place] [address]- 0437 Aug, [facility] [place] [facility] [address] [id number] [place] [address]- 2224 05 Aug, 2012 [facility] [place] [facility] [address] [id number] [place] [address]- 9676 04 Jul, 2012 [facility] [place] [facility] [address] [id number] [place] [address]- 0494 Jun, [facility] [place] [facility] [address] [id number] [place] [address]- 4691 Jun, [facility] [address] [id number] [place] [address]- 2649 Jun, [facility] [address] [id number] [place] [address]- 3834 Jun, [facility] [address] [id number] [place] [address]- 2724 May, [facility] [address] [id number] [place] [address]- 7869 May, [facility] [address] [id number] [place] [address]- 3657 May, [facility] [address] [id number] [place] [address]- 1695 May, [facility] [address] [id number] [place] [address]- 4717 May, [facility] [address] [id number] [place] [address]- 0948 May, [facility] [address] [id number] [place] [address]- 6610 May, [facility] [address] [id number] [place] [address]- 2131 Apr, [facility] [address] [id number] [place] [address]- 4160 Apr, [facility] [place] [facility] [address] [id number] [place] [address]- 0656 Apr, [facility] [place] [facility] [address] [id number] [place] [address]- 8815 Apr, [facility] [place] [facility] [address] [id number] [place] [address]- 5086 Apr, [facility] [address] [id number], [place] [address]- 1628 Apr, [facility] [place] [facility] [address] [id number] [place] [address]- 1136 Apr, [facility] [place] [facility] [address] [id number], [place] [address]- 6841 Mar, [facility] [place] [facility] [address] [id number] [place] [address]- 8899 Mar, [facility] [place] [facility] [address] [id number] [place] [address] Mar, [facility] [place] [facility] [address] [id number] [place] [address] Mar, [facility] [place] [facility] [address] [id number] [place] [address]- 9984 Mar, [facility] [place] [facility] [address] [id number], [place] [address]- 5692 Mar, [facility] [place] [facility] [address] [id number], [place] [address]- 2050 Mar, [facility] [place] [facility] [address] [id number], [place] [address]- 3969 Mar, [facility] [place] [facility] [address] [id number], [place] [address]- 8165 Mar, [facility] [place] [facility] [address] [id number], [place] [address]- 2465 Mar, [facility] [place] [facility] [address] [id number], [place] [address]- 0282 Mar, [facility] [place] [facility] [address] [id number], [place] [address]- 3259 Mar, [facility] [place] [facility] [address] [id number], [place] [address]- 8260 Feb, [facility] [place] [facility] [address] [id number] [place] [address]- 7002 Jan, [facility] [place] [facility] [address] [id number] [place] [address]- 9322 Jan, [facility] [address] [id number] [place] [address]- 4531 Jan, [facility] [place] [facility] [address] [id number] [place] [address] 2546 Jan, [facility] [address] [id number] [place] [address]- 3926 Jan, [facility] [address] [id number] [place] [address]- 4643 Dec, [facility] [address] [id number] [place] [address]- 7070 Dec, [facility] [address] [id number] [place] [address]- 3410 Nov, [facility] [address] [id number] [place] [address]- 4041 Nov, [facility] [address] [id number] [place] [address]- 3472 Nov, [facility] [address] [id number] [place] [address]- 7054 October, [facility] [address] [id number] [place] [address]- 2671 October, [facility] [address] [id number] [place] [address]- 7971 October, [facility] [address] [id number] [place] [address]- 5908 October, [facility] [place] [facility] [address] [id number] [place] [address]- 1739 October, [facility] [address] [id number] [place] [address]- 9086 October, [facility] [address] [id number] [place] 6315 October, [facility] [address] [id number] [place] [address]- 7868 Sep, [facility] [place] [facility] [address] [id number] [place] [address]- 3962 Sep, [facility] [place] [facility] [address] [id number] [place] [address]- 4416 Sep, [facility] [place] [facility] [address] [id number] [place] [address]- 9091 Sep, [facility] [place] [facility] [address] [id number] [place] [address]- 0809 24 Sep, 2011 [facility] [place] [facility] [address] [id number] [place] [address]- 9755 19 Sep, 2011 [facility] [place] [facility] [address] [id number] [place] [address]- 7986 17 Sep, 2011 [facility] [place] [facility] [address] [id number] [place] [address]- 8491 16 Sep, 2011 [facility] [place] [facility] [address] [id number] [place] [address]- 0832 16 Sep, 2011 [facility] [place] [facility] [address] [id number] [place] [address]- 3971 14 Sep, 2011 [facility] [place] [facility] [address] [id number] [place] [address]- 8259 13 Sep, 2011 [facility] [place] [facility] [address] [id number] [place] [address]- 2800 10 Sep, 2011 [facility] [place] [facility] [address] [id number] [place] [address]- 4272 09 Sep, 2011 [facility] [place] [facility] [address] [id number] [place] [address]- 6961 27 Aug, 2011 [facility] [place] [facility] [address] [id number] [place] [address]- 3438 12 Aug, 2011 [facility] [place] [facility] [address] [id number] [place] [address]- 1082 08 Aug, 2011 [facility] [address] [id number] [place] [address]- 8794 06 Aug, 2011 [facility] [place] [facility] [address] [id number] [place] [address]- 3496 28 Jul, 2011 [facility] [place] [facility] [address] [id number] [place] [address]- 0356 22 Jul, 2011 [facility] [place] [facility] [address] [id number] [place] [address]- 6145 16 Jul, 2011 [facility] [place] [facility] [address] [id number] [place] [address]- 9986 15 Jul, 2011 [facility] [place] [facility] [address] [id number] [place] [address]- 6286 14 Jul, 2011 [facility] [place] [facility] [address] [id number] [place] [address]- 9826 10 Jul, 2011 [facility] [address] [id number] [place] [address]- 9877 30 Jun, 2011 [facility] [place] [facility] [address] [id number] [place] [address]- 4345 Jun, [facility] [address] [id number] [place] [address]- 1028 Jun, [facility] [place] [facility] [address] [id number] [place] [address] 2548 Jun, [facility] [place] [facility] [address] [id number] [place] [address]- 9977 Jun, [facility] [place] [facility] [address] [id number] [place] [address]- 4020 May, [facility] [place] [facility] [address] [id number] [place] [address] 2546 May, [facility] [place] [facility] [address] [id number] [place] [address]- 0019 May, [facility] [place] [facility] [address] [id number] [place] [address]- 2494 14 May, 2011 [facility] [place] [facility] [address] [id number] [place] [address]- 6462 May, [facility] [place] [facility] [address] [id number] [place] [address]- 0918 07 May, 2011 [facility] [place] [facility] [address] [id number] [place] [address]- 1506 05 May, 2011 [facility] [place] [facility] [address] [id number] [place] [address]- 3872 15 Apr, 2011 [facility] [place] [facility] [address] [id number] [place] [address]- 9614 15 Apr, 2011 [facility] [place] [facility] [address] [id number] [place] [address]- 6206 Apr, [facility] [place] [facility] [address] [id number] [place] [address]- 6116 Apr, [facility] [place] [facility] [address] [id number] [place] [address]- 2131 Apr, [facility] [place] [facility] [address] [id number], [place] [address]- 9400 Apr, [facility] [place] [facility] [address] [id number], [place] [address]- 6326 Mar, [facility] [place] [facility] [address] [id number], [place] [address]- 9990 Mar, [facility] [place] [facility] [address] [id number], [place] [address]- 5826 Mar, [facility] [place] [facility] [address] [id number], [place] [address]- 0023 Mar, [facility] [place] [facility] [address] [id number], [place] [address]- 0550 Jan, [facility] [place] [facility] [address] [id number], [place] [address]- 5278 19 Dec, 2010 [facility] [address] [id number] [place] [address]- 4366 13 Dec, 2010 [facility] [place] [facility] [address] [id number] [place] [address]- 0146 October, [facility] [place] [facility] [address] [id number] [place] [address]- 7676 20 Sep, 2010 [facility] [place] [facility] [address] [id number] [place] [address]- 3080 14 Sep, 2010 [facility] [address] [id number] [place] [address]- 6976 17 Jul, 2010 [facility] [place] [facility] [address] [id number] [place] [address]- 5606 16 Jul, 2010 [facility] [address] [facility] [id number] [place] [address]- 5359 31 May, 2010 [facility] [place] [facility] [address] [id number] [place] [address]- 5333 May, [facility] [address] [facility] [id number] [place] [address]- 4063 May, [facility] [place] [facility] [address] [facility] [id number] [place] [address]- 3877 May, [facility] [place] [facility] [address] [id number] [place] [address]- 2860 Apr, [facility] [place] [facility] [address] [id number] [place] [address]- 7843 Apr, [facility] [place] [facility] [address] [id number] [place] [address]- 2753 Apr, [facility] [place] [facility] [address] [id number] [place] [address]- 1611 Apr, [facility] [place] [facility] [address] [facility] [id number] [place] 0346 Apr, [facility] [place] [facility] [address] [id number] [place] [address]- 9075 21 Mar, 2010 [facility] [place] [facility] [address] [id number] [place] [address]- 9546 14 Mar, 2010 [facility] [place] [facility] [address] [id number] [place] [address] 2546 13 Mar, 2010 [facility] [place] [facility] [address] [id number] [place] [address] 2546 12 Mar, 2010 [facility] [place] [facility] [address] [id number] [place] [address] 2541 20 Jan, 2010 [facility] [place] [facility] [address] [id number] [place] [address]- 5026 15 Dec, 2009 [facility] [place] [facility] [address] [id number] [place] [address]- 6432 10 Sep, 2009 [facility] [place] [facility] [address] [id number] [place] [address]- 3683 08 May, 2009 [facility] [place] [facility] [address] [id number] [place] [address]- 3805 06 May, 2009 [facility] [place] [facility] [address] [id number] [place] [address] 2545 02 May, 2009 [facility] [place] [facility] [address] [facility] [id number] [place] [address] 2544 17 Apr, 2009 [facility] [place] [facility] [address] [id number] [place] [address] 2546 17 Apr, 2009 [facility] [place] [facility] [address] [id number] [place] [address] 2546 10 Apr, 2009 [facility] [place] [facility] [address] [id number] [place] [address] 2546 10 Apr, 2009 [facility] [place] [facility] [address] [id number] [place] [address] 09 Apr, 2009 [facility] [place] [facility] [address] [id number] [place] [address] Mar, [facility] [address] [facility] [id number] [place] [address] Mar, [facility] [address] [facility] [id number] [place] [id number] Jul, IMMUNIZATIONS No Known Immunizations SOCIAL HISTORY [...] 08/2017 Surgical History nephrectomy 03/2017 Hospitalization History Cellulitis-[facility] 12/20/15 Hospitalization History [facility] [place]- Abd pain 03/07/2017 Hospitalization History [facility] [place]- Abd pain 03/14/2017 Hospitalization History [facility] [place]- No bowel movement, rash 04/13/2017 Hospitalization History [facility] [place]- Abd pain r/t kidney surgery on 04/17/2017 Hospitalization History [facility] [place]- Abd pain r/t kidney surgery on 04/18/2017 Hospitalization History [facility] [place]- Lower abd pain 04/30/2017 Hospitalization History [facility] [place]- Cannot urinate 05/30/2017 Hospitalization History [facility] [place]- Pancreatitis Sx 06/29/2017 Hospitalization History [facility] [place]- Stomach pain 07/22/2017 Hospitalization History [facility] [place]- Left side pain 08/12/2017 Hospitalization History [facility] [place]- Incision site infection 08/30/2017 Hospitalization History [facility] [place]- Post Op Seroma/Hematoma Left Abdomen. Discharged 09/04/17- Dr Daniel 09/02/2017 Hospitalization History [facility]- Right shoulder and back pain 2017
--- OUTSIDE RECORDS SUMMARY | 2017-12-18 01:38 | XMS REPORT ---
Author Author BHUPENDRA Ford Organization [facility] Address [address] [place] [address] Care Team Providers Care Medical Librarian Name Role Phone BHUPENDRA Ford Unavailable PROBLEMS Type Condition ICD9-CM Code [id number] Code Onset Dates Condition Status SNOMED Code Problem Asthma J45.909 Active 659389682 Problem Atelectasis J98.11 Active 42939569 Problem Polydipsia R63.1 Active 23990022 Problem Chronic fatigue R53.82 Active 95504527 Problem Moderate episode of recurrent major depressive disorder F33.1 Active 354668003 Problem Generalized social phobia F40.11 Active 62333028 Problem Trichotillomania F63.3 Active 87105469 Problem Restless leg syndrome G25.81 Active 37310465 Problem Chronic post-traumatic stress disorder (PTSD) F43.12 Active 547074947 Problem History of renal cell carcinoma Z85.528 Active 317596089 Problem Nodule of left lung R91.1 Active 806223050 Problem Chronic tension-type headache, intractable G44.221 Active 802483769 Problem Hyperlipidemia, mixed E78.2 Active 140888683 Problem Hirsuties L68.0 Active 560943145 Problem Morbid (severe) obesity due to excess calories E66.01 Active 622022170 Problem FH: polycystic ovary Z84.2 Active 156473961 Problem Chronic pancreatitis K86.1 Active 163202909 ALLERGIES No Information ENCOUNTERS Encounter Location Date Diagnosis [facility] [address] [facility] [id number], [place] [address] Feb, [facility] [address] [id number], [place] [address] Dec, [facility] [address] [facility] [id number], [place] [address] Nov, Nodule of left lung R91.1 [place] [address] [place] [address] 40587- 8961 04 Nov, 2017 Medicare annual wellness visit, [...] adult Z68.42 and Encounter for immunization Z23 [place] [address] [address]- 3475 October, [place] [address] 62759- 9671 October, Nodule of left lung R91.1 [place] [address] [id number] [place] [address] 38006- 1891 October, Nodule of left lung R91.1 [place] [id number] [place] [address] 35002- 5123 October, Recurrent major depressive disorder, in partial remission F33.41 ; Restless leg syndrome G25.81 ; Generalized social phobia F40.11 ; Chronic post-traumatic stress disorder (PTSD) F43.12 ; BMI 45.0-49.9, adult Z68.42 and Trichotillomania F63.3 [place] [address] [id number] [place] [address] 66770- 1636 October, [place] [id number] [place] [address] 82392- 4091 Sep, Chronic fatigue R53.82 and BMI 45.0-49.9, adult Z68.42 [place] [id number] [place] [address] 30475- 2815 Aug, [place] [id number] [address]- 3919 Jul, Restless leg syndrome G25.81 and B12 deficiency E53.8 [place] [address] [id number] [place] [address] 85789- 3411 Jul, [facility] [id number] [place] [address] 32730- 2565 Jul, [place] [address] 94821- 5051 Jun, [place] [address] 70832- 6460 Jun, Fatigue, unspecified type R53.83 ; History of renal cell carcinoma Z85.528 ; Chronic pancreatitis K86.1 ; Restless leg syndrome G25.81 ; Dark urine R82.99 and BMI 45.0-49.9, adult Z68.42 [place] [address] [id number] [place] [address] 51566- 5965 Jun, [place] [address] [place] [address] 94423- 5158 Jun, [place] [id number] [place] [address] 71153- 7400 Jun, [place] [id number] [place] [address] 50336- 9763 Jun, [place] [address] [id number] [place] [address] 89201- 7344 May, Chronic post-traumatic stress disorder (PTSD) F43.12 ; Moderate episode of recurrent major depressive disorder F33.1 ; Trichotillomania F63.3 and Generalized social phobia F40.11 [place] [address] [place] [address] 31677- 7082 May, [place] [id number] [place] [address] 22581- 2344 May, Chronic post-traumatic stress disorder (PTSD) F43.12 ; Moderate episode of recurrent major depressive disorder F33.1 ; Trichotillomania F63.3 and Generalized social phobia F40.11 [place] [address], [place] [address] 6417 May, Hyperlipidemia, mixed E78.2 ; Morbid (severe) obesity due to excess calories E66.01 ; Chronic post-traumatic stress disorder (PTSD) F43.12 ; Moderate episode of recurrent major depressive disorder F33.1 ; Trichotillomania F63.3 and Generalized social phobia F40.11 [place] [address], [place] [address]- 5964 Apr, [place] [address] [id number] [place] [address] 33675- 3235 29 Apr, 2017 Hyperlipidemia, mixed E78.2 ; Morbid (severe) obesity due to excess calories E66.01 ; Chronic post-traumatic stress disorder (PTSD) F43.12 ; Moderate episode of recurrent major depressive disorder F33.1 ; Trichotillomania F63.3 and Generalized social phobia F40.11 [place] [address], [place] [address]- 1176 Apr, Trichotillomania F63.3 ; Generalized social phobia F40.11 ; Chronic post-traumatic stress disorder (PTSD) F43.12 and Moderate episode of recurrent major depressive disorder F33.1 [place] [address], [place] [address]- 5253 Apr, [place] [address], [place] [address]- 2844 Apr, [place] [address] [place] [address] 88782- 4848 Mar, Moderate episode of recurrent major depressive disorder F33.1 ; Trichotillomania F63.3 ; Chronic post-traumatic stress disorder (PTSD) F43.12 ; Generalized social phobia F40.11 and Restless leg syndrome G25.81 [place] [address] [id number] [address] 2745 Mar, [facility] [address] [id number] [place] [address] 89611- 5378 Mar, [facility] [address] [id number] [place] [address] 24234- 0319 Feb, Left kidney mass N28.89 [facility] [address] 54672- 5321 Jan, [facility] [address] [id number] [place] [address] 19536- 6597 Dec, Polydipsia R63.1 ; Chronic pancreatitis K86.1 and Fatigue, unspecified type R53.83 [place] [address] [address] [address] [place] [address] 53361- 3648 Nov, [place] [address] [id number] [place] [address] 25531- 1286 Nov, [facility] [address] [place] [address] 76185- 1247 Nov, Headache around the eyes R51 [place] [address] [address] [address] [place] [address] 75458- 6028 Nov, [facility] [address] [place] [address] 27160- 0434 October, STD exposure Z20.2 [place] [address] [place] [id number] [place] [address] 11755- 3892 October, STD exposure Z20.2 [facility] [address] [place] [address] [address] [place] [address] 34145- 1561 October, Chronic post-traumatic stress disorder (PTSD) F43.12 ; Generalized social phobia F40.11 ; Trichotillomania F63.3 and Restless leg syndrome G25.81 [facility] [address] [place] [address] 50711- 3047 October, [place] [address], [place] [address]- 8397 Sep, [place] [address] [place] [address] 66647- 5888 17 Aug, 2016 [facility] [address] [address] [place] [address] 10430- 4031 Aug, [place] [address] [place] [address] 87169- 8018 08 Aug, 2016 Neck mass R22.1 [place] [address] [address] [address] [place] [address] 19445- 6527 03 Aug, 2016 Atelectasis J98.11 [place] [address] [place] [address] 82555- 1521 28 Jul, 2016 Hyperlipidemia, mixed E78.2 ; Atypical pneumonia J18.9 and Neck mass R22.1 [place] [address] [address] [place] [address] 20462- 5172 15 Jul, 2016 Hemoptysis R04.2 [place] [address] [address] [place] [address] 61960- 6006 08 Jul, 2016 Acute non-recurrent pansinusitis J01.40 ; Hemoptysis R04.2 ; Polydipsia R63.1 and Malaise R53.81 [facility] [address] [place] [address] 33951 -4981 May, Other viral agents as the cause of diseases classified elsewhere B97.89 and Acute upper respiratory infection, unspecified J06.9 [facility] [place] [id number] [place] [address] 16957 -6664 Mar, Nausea R11.0 [facility] IN [place] [id number] [place] [address] 64174 -4037 Dec, Hives L50.9 [place] [address] [address] [place] [address] 79081- 3132 14 Dec, 2015 [facility] IN [place] [address], [place] [address]6276 10 Dec, 2015 Cutaneous abscess of limb, unspecified L02.419 ; Cellulitis of unspecified part of limb L03.119 ; Encounter for incision and drainage procedure Z01.89 and Encounter for recheck of abscess following incision and drainage Z09 [facility] IN [place] [address], [place] [address]44 09 Dec, 2015 Abscess of leg, right L02.415 [place] [address] [address] [address] [place] [address] 59675- 8912 08 Dec, 2015 Cellulitis of unspecified part of limb L03.119 and Cutaneous abscess of limb, unspecified L02.419 [place] [address] [place] [address] 51078- 0859 Dec, [place] [address] [address] [place] [address] 07812- 8996 Dec, [facility] [place] [address] [place] [address] [place] [address] 36031 -1255 Aug, [place] [address] [place] [address] 76816- 1320 Aug, [facility] IN [address] [place] [address] 84886 -0811 Jul, Pain in unspecified wrist M25.539 and Back pain, thoracic M54.6 [facility] IN [address] [place] [address] 19190 -3237 Jun, Strain of right wrist, initial encounter S66.911A [place] [address] [address] [address] [place] [address] 32433- 2305 Jun, Chronic pancreatitis, unspecified pancreatitis type K86.1 ; Hirsuties L68.0 ; Morbid (severe) obesity due to excess calories E66.01 ; Chronic pancreatitis K86.1 and Asthma J45.909 [place] [address] [address] [place] [address] 08455- 9182 May, [facility] [address] [place] [address] 30004- 4272 May, Hyperlipidemia, mixed E78.2 and Muscle spasm of back M62.830 [facility] [address] [place] [address] 71783- 6051 Apr, [facility] [address] 60291- 0641 Apr, Torticollis M43.6 [facility] [address] [place] [address] 61151- 5579 Apr, Right-sided thoracic back pain M54.6 [facility] [address] 29792- 4754 Mar, Rash R21 [facility] [address] 34516- 8251 Mar, [facility] [id number] [place] [address] 80305- 1174 Jan, [facility] [address] 53014- 1634 Dec, [facility] [address] [place] [address] 54964- 0350 Dec, Urinary frequency 788.41 and Nocturia more than twice per night 788.43 [facility] [id number] [place] [address] 15553- 6573 Nov, [facility] [address] [place] [address] 77615- 8394 Nov, [facility] [address] 29973- 9221 Nov, Abdominal pain 789.00 [facility] [id number] [place] [address] 77703- 8736 October, TDAP DX V06.1 [facility] [address] [facility] [id number], [place] [address]- 1242 October, [facility] [address], [place] [address]- 2158 October, Disturbance of skin sensation 782.0 ; Wrist pain, right 719.43 ; Hyperlipidemia 272.4 and Skin lesion of face 709.9 [facility] [address] [facility] [id number], [place] [address]- 2634 Sep, [facility] [address] [facility] [id number], [place] [address]- 4786 Sep, [facility] [address], [place] [address]- 0654 Aug, [facility] [address], [place] [address]- 9243 Aug, [facility] [address], [place] [address]- 2372 Aug, [facility] [address] [id number], [place] [address]- 8159 Aug, [facility] [address], [place] [address]- 4182 Aug, [facility] [address], [place] [address]- 0456 16 Aug, 2014 [facility] [address] [id number], [place] [address]- 4229 Aug, [facility] [address] [facility] [id number], [place] [address]- 8209 Aug, [facility] [address] 9336 Aug, [facility] [id number], [place] [address]- 6791 Aug, [facility] [address], [place] [address]- 9576 Aug, [facility] [place] [facility] [address] [id number] [place] [address]- 3248 Aug, [facility] [place] [facility] [address] [id number] [place] [address]- 9553 Aug, [facility] [place] [facility] [address] [id number] [place] [address]- 7941 Aug, [facility] [place] [facility] [address] [id number] [place] [address]- 6123 Jul, 2014 [facility] [place] [facility] [address] [id number] [place] [address]- 6954 Jul, [facility] [place] [facility] [address] [id number] [place] [address]- 0071 Jul, [facility] [place] [facility] [address] [id number] [place] [address]- 5666 Jul, [facility] [place] [facility] [address] [id number] [place] [address]- 7556 Jul, [facility] [place] [facility] [address] [id number] [place] [address]- 9619 Jul, [facility] [place] [facility] [address] [facility] [id number] [place] [address]- 6330 Jun, [facility] [place] [facility] [address] [id number] [place] [address]- 7795 Jun, [facility] [place] [facility] [address] [id number], [place] [address]- 4280 Jun, [facility] [place] [facility] [address] [id number] [place] [address]- 6221 Jun, [facility] [place] [facility] [address] [id number] [place] [address]- 3550 Jun, [facility] [place] [facility] [address] [id number], [place] [address]- 4293 Jun, [facility] [place] [facility] [address] [id number] [place] [address]- 3490 15 Jun, 2014 [facility] [place] [facility] [address] [id number] [place] [address]- 2881 15 Jun, 2014 [facility] [place] [facility] [address] [id number] [place] [address]- 0005 May, [facility] [place] [facility] [address] [id number] [place] [address]- 3257 May, [facility] [place] [facility] [address] [id number] [place] [address]- 3281 May, [facility] [place] [facility] [address] [id number] [place] [address]- 4966 May, [facility] [place] [facility] [address] [id number] [place] [address]- 8186 May, [facility] [place] [facility] [address] [id number] [place] [address]- 3595 May, [facility] [place] [facility] [address] [id number] [place] [address]- 5754 May, [facility] [place] [facility] [address] [id number] [place] [address]- 1565 May, [facility] [place] [facility] [address] [id number] [place] [address]- 0996 May, [facility] [place] [facility] [address] [id number] [place] [address]- 8496 May, [facility] [place] [facility] [address] [id number] [place] [address]- 0727 May, [facility] [place] [facility] [address] [id number] [place] [address]- 1227 May, [facility] [place] [facility] [address] [id number] [place] [address]- 0343 Apr, [facility] [place] [facility] [address] [id number], [place] [address]- 1659 Apr, [facility] [place] [facility] [address] [id number] [place] [address]- 2059 Apr, [facility] [place] [facility] [address] [id number] [place] [address]- 8256 Apr, [facility] [place] [facility] [address] [id number] [place] [address]- 5731 Apr, [facility] [place] [facility] [address] [id number], [place] [address]- 0423 Apr, [facility] [place] [facility] [address] [id number] [place] [address]- 2599 Apr, [facility] [place] [facility] [address] [id number] [place] [address]- 4797 Apr, [facility] [place] [facility] [address] [id number] [place] [address]- 4910 Apr, [facility] [place] [facility] [address] [id number], [place] [address]- 2002 Apr, [facility] [place] [facility] [address] [id number], [place] [address]- 5427 Apr, [facility] [place] [facility] [address] [id number] [place] [address]- 5590 Apr, [facility] [place] [facility] [address] [id number], [place] [address]- 5233 Mar, [facility] [place] [facility] [address] [id number], [place] [address]- 5299 Mar, [facility] [place] [facility] [address] [id number], [place] [address]- 9514 Mar, [facility] [place] [facility] [address] [id number], [place] [address]- 3110 Mar, [facility] [place] [facility] [address] [id number], [place] [address]- 6643 Feb, [facility] [place] [facility] [address] [id number] [place] [address]- 3540 10 Feb, 2013 [facility] [place] [facility] [address] [id number] [place] [address]- 4101 05 Feb, 2013 [facility] [place] [facility] [address] [id number] [place] [address]- 9478 Feb, 2013 [facility] [place] [facility] [address] [id number] [place] [address]- 6407 05 Feb, 2013 [facility] [place] [facility] [address] [id number] [place] [address]- 7329 Feb, 2013 [facility] [place] [facility] [address] [id number] [place] [address]- 3933 Jan, [facility] [place] [facility] [address] [id number] [place] [address]- 4144 Jan, [facility] [place] [facility] [address] [id number] [place] [address]- 5141 Jan, [facility] [place] [facility] [address] [id number] [place] [address]- 1635 Jan, [facility] [place] [facility] [address] [id number] [place] [address]- 2326 Jan, [facility] [place] [facility] [address] [id number] [place] [address]- 8420 Jan, [facility] [place] [facility] [address] [id number] [place] [address]- 6128 Jan, [facility] [place] [facility] [address] [id number] [place] [address]- 1972 Jan, [facility] [place] [facility] [address] [id number] [place] [address]- 6372 Jan, [facility] [place] [facility] [address] [id number] [place] [address]- 0188 Jan, [facility] [place] [facility] [address] [id number] [place] [address]- 1712 Jan, [facility] [place] [facility] [address] [id number] [place] [address]- 3510 Jan, [facility] [place] [facility] [address] [id number] [place] [address]- 9986 Jan, [facility] [place] [facility] [address] [id number] [place] [address]- 3968 Jan, [facility] [place] [facility] [address] [id number] [place] [address]- 5963 Dec, [facility] [place] [facility] [address] [id number] [place] [address]- 6200 Dec, [facility] [place] [facility] [address] [id number] [place] [address]- 5304 Dec, [facility] [place] [facility] [address] [id number] [place] [address]- 9463 Dec, [facility] [place] [facility] [address] [id number] [place] [address]- 2973 Nov, [facility] [place] [facility] [address] [id number] [place] [address]- 3404 Nov, [facility] [place] [facility] [address] [id number] [place] [address]- 7038 Nov, [facility] [place] [facility] [address] [id number] [place] [address]- 0443 Nov, [facility] [place] [facility] [address] [id number] [place] [address] Nov, [facility] [place] [facility] [address] [id number] [place] [address] October, [facility] [place] [facility] [address] [id number] [place] [address] October, [facility] [place] [facility] [address] [id number] [place] [address] October, [facility] [place] [facility] [address] [id number] [place] [address] October, [facility] [address] [id number] [place] [address] October, [facility] [place] [facility] [address] [id number] [place] [address] October, [facility] [place] [facility] [address] [id number] [place] [address] October, [facility] [place] [facility] [address] [id number] [place] [address] October, [facility] [place] [facility] [address] [id number] [place] [address] October, [facility] [place] [facility] [address] [id number] [place] [address] October, [facility] [place] [facility] [address] [id number] [place] [address] October, [facility] [place] [facility] [address] [id number] [place] [address] October, [facility] [place] [facility] [address] [id number] [place] [address] October, [facility] [place] [facility] [address] [id number] [place] [address] October, [facility] [place] [facility] [address] [id number] [place] [address] Sep, [facility] [place] [facility] [address] [id number] [place] [address] 17 Sep, 2013 [facility] [place] [facility] [address] [id number] [place] [address] Sep, [facility] [place] [facility] [address] [id number] [place] [address] Sep, [facility] [place] [facility] [address] [id number] [place] [address] Sep, [facility] [place] [facility] [address] [id number] [place] [address] Sep, [facility] [place] [facility] [address] [id number] [place] [address] Sep, [facility] [place] [facility] [address] [id number] [place] [address] Sep, [facility] [place] [facility] [address] [id number] [place] [address]- [address] Sep, [facility] [place] [facility] [address] [id number] [place] [address] Sep, [facility] [place] [facility] [address] [id number] [place] [address] Sep, [facility] [place] [facility] [address] [id number] [place] [address]- [address] Sep, [facility] [place] [facility] [address] [id number] [place] [address] Sep, [facility] [place] [facility] [address] [id number] [place] [address] Sep, [facility] [place] [facility] [address] [id number] [place] [address] Sep, [facility] [place] [facility] [address] [id number] [place] [address] Aug, [facility] [place] [facility] [address] [id number] [place] [address] 29 Aug, 2013 [facility] [place] [facility] [address] [id number] [place] [address] Aug, [facility] [place] [facility] [address] [id number] [place] [address] Aug, [facility] [place] [facility] [address] [id number] [place] [address] Jul, [facility] [place] [facility] [address] [id number] [place] [address] Jul, [facility] [place] [facility] [address] [id number] [place] [address] Jul, [facility] [facility] [address] [id number] [place] [address] Jul, [facility] [place] [facility] [address] [facility] [id number] [place] [address] 15 Jun, 2013 [facility] [place] [facility] [address] [id number] [place] [address] Jun, [facility] [place] [facility] [address] [id number] [place] [address] Jun, [facility] [place] [facility] [address] [facility] [id number] [place] [address] Jun, [facility] [place] [facility] [address] [facility] [id number] [place] [address] 84[address] Jun, [facility] [place] [facility] [address] [id number] [place] [address] 95[address] Jun, [facility] [address] [facility] [id number] [place] [address] Jun, [facility] [address] [facility] [id number] [place] [address] Jun, [facility] [address] [facility] [id number] [place] [address] 36[address] May, [facility] [place] [facility] [address] [id number] [place] [address] 4590 May, [facility] [place] [facility] [address] [id number] [place] [address] 8448 18 May, 2013 [facility] [place] [facility] [address] [facility] [id number] [place] [address] 18 May, 2013 [facility] [address] [facility] [id number] [place] [address] 17 May, 2013 [facility] [address] [id number] [place] [id number] 17 May, 2012 [facility] [address] [id number] [place] [address] 1176 17 May, 2013 [facility] [address] [id number] [place] [address]126 17 May, 2013 [facility] [address] [id number] [place] [address] 16 May, 2013 [facility] [address] [id number] [place] [address]- 8584 16 May, 2013 [facility] [address] [id number] [place] [address]- 8634 14 May, 2013 [facility] [address] [id number] [place] [address]- 3660 14 May, 2013 [facility] [address] [id number] [place] [address]- 9707 13 May, 2013 [facility] [address] [id number] [place] [address]- 6237 13 May, 2013 [facility] [address] [id number] [place] [address]- 4851 12 May, 2013 [facility] [address] [id number] [place] [address]- 6472 12 May, 2013 [facility] [address] [id number] [place] [address]- 0856 11 May, 2013 [facility] [address] [id number] [place] [address]- 5293 11 May, 2013 [facility] [address] [id number] [place] [address] 26 Apr, 2013 [facility] [address] [id number] [place] [address]- 0182 Apr, [facility] [address] [id number] [place] [address] Apr, [facility] [address] [id number] [place] [address]- 2428 Apr, [facility] [address] [id number] [place] [address]- 5902 Aug, [facility] [address] [id number] [place] [address]- 4691 Aug, [facility] [address] [id number] [place] [address]- 3434 Aug, [facility] [address] [id number] [place] [address]- 4013 Aug, [facility] [address] [id number] [place] [address]- 8312 Jul, [facility] [address] [id number] [place] [address]- 6316 Jun, [facility] [address] [id number] [place] [address] 3[address] Jun, [facility] [address] [id number] [place] [address]- 9047 Jun, [facility] [address] [id number] [place] [address]- 9244 Jun, [facility] [address] [id number] [place] [address]- 7404 May, [facility] [address] [id number], [place] [address]- 7665 May, [facility] [address] [id number] [place] [address]- 0567 May, [facility] [address] [id number] [place] [address]- 7095 May, [facility] [address] [id number] [place] [address]- 9469 May, [facility] [address] [id number], [place] [address]- 3[address] May, [facility] [address] [id number] [place] [address]- 3744 May, [facility] [address] [id number], [place] [address]- [address] Apr, [facility] [address] [facility] [id number] [place] [address]- 9402 Apr, [facility] [address] [id number], [place] [address]- [address] Apr, [facility] [address] [id number] [place] [address]- 4314 Apr, [facility] [address] [id number], [place] [address]- [address] Apr, [facility] [address] [facility] [id number], [place] [address]- 3420 Apr, [facility] [address] [id number], [place] [address]- 8[address] Apr, [facility] [address] [id number], [place] [address]- 5183 Mar, [facility] [address] [id number], [place] [address]- 8170 Mar, [facility] [address] [id number], [place] [address]- 356[address] Mar, [facility] [address] [id number], [place] [address]- 6144 Mar, [facility] [address] [id number], [place] [address]- 7615 Mar, [facility] [address] [facility] [id number], [place] [address]- [address]285 Mar, [facility] [address] [facility] [id number], [place] [address]- 5727 Mar, [facility] [address] [id number] [place] [address] 2546 Mar, [facility] [address] [id number] [place] [address]- 9581 Mar, [facility] [address] [id number] [place] [address] 2546 Mar, [facility] [address] [id number] [place] [address]- 1754 Mar, [facility] [address] [id number] [place] [address] 2541 Mar, [facility] [address] [id number] [place] [address]- 1215 Feb, [facility] [address] [id number] [place] [address]- 7704 Jan, [facility] [address] [id number] [place] [address]- 5854 Jan, [facility] [address] [id number] [place] [address]- 1448 Jan, [facility] [address] [id number] [place] [address]- 0973 Jan, [facility] [address] [id number] [place] [address]- 1854 Jan, [facility] [address] [id number] [place] [address]- 2353 Dec, [facility] [address] [id number] [place] [address]- 8542 Dec, [facility] [address] [id number] [place] [address]- 2546 Nov, [facility] [address] [id number] [place] [address]- 2546 Nov, [facility] [address] [id number] [place] [address]- 6225 Nov, [facility] [address] [id number] [place] [address]- 2867 October, [facility] [address] [id number] [place] [address]- 6566 October, [facility] [address] [id number] [place] [address]- 7077 October, [facility] [address] [id number] [place] [address]- 6757 October, [facility] [address] [id number] [place] [address]- 0750 October, [facility] [address] [id number] [place] [address]- 2498 October, [facility] [address] [id number] [place] [address]- 7461 October, [facility] [address] [id number] [place] [address]- 7552 Sep, [facility] [address] [id number] [place] [address]- 1634 Sep, [facility] [address] [id number] [place] [address]- 0484 Sep, [facility] [address] [id number] [place] [address]- 0374 Sep, [facility] [address] [id number] [place] [address]- 3273 24 Sep, 2011 [facility] [address] [id number] [place] [address]- 6515 19 Sep, 2011 [facility] [address] [id number] [place] [address]- 4618 17 Sep, 2011 [facility] [address] [id number] [place] [address]- 7172 16 Sep, 2011 [facility] [address] [id number] [place] [address]- 6893 16 Sep, 2011 [facility] [address] [id number] [place] [address]- 5171 14 Sep, 2011 [facility] [address] [id number] [place] [address]- 2496 13 Sep, 2011 [facility] [address] [facility] [id number] [place] [address]- 1626 10 Sep, 2011 [facility] [address] [id number] [place] [address]- 7944 09 Sep, 2011 [facility] [address] [id number] [place] [address]- 1395 27 Aug, 2011 [facility] [address] [facility] [id number] [place] [address]- 0231 12 Aug, 2011 [facility] [address] [facility] [id number] [place] [address]- 4933 08 Aug, 2011 [facility] [address] [facility] [id number] [place] [address]- 5263 06 Aug, 2011 [facility] [address] [id number] [place] [address]- 0756 28 Jul, 2011 [facility] [address] [facility] [id number] [place] [address]- 5681 22 Jul, 2011 [facility] [id number] [place] [address]- 3306 16 Jul, 2011 [facility] [address] [facility] [id number] [place] [address]- 4183 15 Jul, 2011 [facility] [address] [id number] [place] [address]- 7776 14 Jul, 2011 [facility] [address] [facility] [id number] [place] [address]- 4937 10 Jul, 2011 [facility] [id number] [place] [address]- 3740 Jun, [facility] [address] [id number] [place] [address]- 4200 Jun, [facility] [address] [id number] [place] [address]- 8284 Jun, [facility] [address] [id number] [place] [address] Jun, [facility] [place] [address] [id number] [place] [address]- 6759 Jun, [facility] [address] [id number] [place] [address]- 2934 May, [facility] [address] [id number] [place] [address]- 1894 May, [facility] [address] [id number] [place] [address]- 7490 May, [facility] [address] [id number] [place] [address]- 3904 May, [facility] [address] [id number] [place] [address]- 0758 May, [facility] [address] [id number], [place] [address]- 7306 May, [facility] [address] [id number], [place] [address]- 8303 May, [facility] [address] [id number], [place] [address]- 0172 15 Apr, 2011 [facility] [address] [id number] [place] [address]- 4943 Apr, [facility] [address] [id number], [place] [address]- 9621 Apr, [facility] [address] [id number], [place] [address]- [address] 07 Apr, 2011 [facility] [address] [id number], [place] [address]- 0431 Apr, [facility] [address] [id number] [place] [address]- 4479 Apr, [facility] [address] [id number] [place] [address]- 7790 Mar, [facility] [address] [id number] [place] [address]- 3669 Mar, [facility] [address] [id number] [place] [address]- 7700 Mar, [facility] [address] [id number] [place] [address]- 2515 Mar, [facility] [address] [id number] [place] [address]- 7301 Jan, [facility] [address] [id number] [place] [address]- 3669 Dec, [facility] [address] [facility] [id number] [place] [address]- 4252 Dec, [facility] [place] [facility] [address] [id number] [place] [address]- 5541 October, [facility] [address] [id number] [place] [address]- 1129 Sep, [facility] [facility] [address] [id number] [place] [address]- 0735 14 Sep, 2010 [facility] [facility] [address] [facility] [id number] [place] [address]- 2164 Jul, [facility] [place] [facility] [address] [id number] [place] [address]- 5811 Jul, [facility] [place] [facility] [address] [facility] [id number] [place] [address]- 8544 May, [facility] [place] [facility] [address] [facility] [id number] [place] [address]- 4127 May, [facility] [place] [facility] [address] [id number] [place] [address]- 9285 08 May, 2010 [facility] [place] [facility] [address] [id number] [place] [address]- 7266 May, [facility] [place] [facility] [address] [id number] [place] [address]- 8022 Apr, [facility] [place] [facility] [address] [id number] [place] [address]- 5347 Apr, [facility] [place] [facility] [address] [id number] [place] [address]- 9823 Apr, [facility] [place] [facility] [address] [id number] [place] [address]- 1964 Apr, [facility] [place] [facility] [address] [id number] [place] [address]- 4460 Apr, [facility] [place] [facility] [address] [id number] [place] [address]- 0780 Mar, [facility] [place] [facility] [address] [id number] [place] [address]- 5960 14 Mar, 2010 [facility] [place] [facility] [address] [id number] [place] [address]- 3499 Mar, [facility] [place] [facility] [address] [id number] [place] [address]- 9899 Mar, [facility] [place] [facility] [address] [id number] [place] [address]- 3693 Jan, [facility] [place] [facility] [address] [id number] [place] [address]- 5999 15 Dec, 2009 [facility] [place] [facility] [address] [id number] [place] [address]- 2175 10 Sep, 2009 [facility] [place] [facility] [address] [id number] [place] [address]- 2686 08 May, 2009 [facility] [place] [facility] [address] [id number] [place] [address]- 4389 May, [facility] [address], [place] [address]- 9410 May, [facility] [address] 2036 Apr, [facility] [address]65[address] 4430 Apr, [facility] [address] 9403 Apr, [facility] [address] [address]591 Apr, [facility] [id number] [place] [address]- 8280 Apr, [facility] [address] 5222 Mar, [facility] [address]65[address], [place] [address]- 7966 Mar, [facility] [address], [place] [address]- 2923 Jul, IMMUNIZATIONS No Known Immunizations SOCIAL HISTORY Never Assessed REASON FOR VISIT f/u PLAN OF CARE Activity Details Follow Up next available Reason:Depression, anxiety, VITAL SIGNS MEDICATIONS Unknown Medications RESULTS No Results PROCEDURES Procedure Date Ordered Result Body Site Psychotherapy, patient &/family, 45 minutes, established patient May 30, 2017 INSTRUCTIONS MEDICATIONS ADMINISTERED No Known Medications [...] 08/2017 Surgical History nephrectomy 03/2017 Hospitalization History Cellulitis-[facility] 12/20/15 Hospital[facility]- Abd pain 03/07/2017 Hospital[facility]- Abd pain 03/14/2017 [facility]- No bowel movement, rash 04/13/2017 Hospital[facility]- Abd pain r/t kidney surgery on 04/17/2017 Hospitalization History [facility]- Abd pain r/t kidney surgery on 04/18/2017 Hospitalization History [facility]- Lower abd pain 04/30/2017 Hospitalization History [facility]- Cannot urinate 05/30/2017 Hospitalization History [facility]- Pancreatitis Sx 06/29/2017 Hospitalization [facility]- Stomach pain 07/22/2017 Hospital[facility]- Left side pain 08/12/2017 Hospitalization History [facility]- Incision site infection 08/30/[address] [facility]- Post Op Seroma/Hematoma Left Abdomen. Discharged 09/04/17- Dr Daniel 09/02/2017 Hospitalization History [facility]- Right shoulder and back pain 2017
--- OUTSIDE RECORDS SUMMARY | 2017-12-18 01:41 | XMS REPORT ---
Author Author SAI CARMEN [facility] Address [address] [place] [address] Care Team Providers Care Visual Education Director Name Role Phone CARMEN GIBBS Unavailable PROBLEMS Type Condition ICD9-CM Code XZM42-SX Code Onset Dates Condition Status SNOMED Code Problem Asthma J45.909 Active 551869625 Problem Atelectasis J98.11 Active 31479274 Problem Polydipsia R63.1 Active 72952671 Problem Chronic fatigue R53.82 Active 60874534 Problem Moderate episode of recurrent major depressive disorder F33.1 Active 295727480 Problem Generalized social phobia F40.11 Active 62422484 Problem Trichotillomania F63.3 Active 19823401 Problem Restless leg syndrome G25.81 Active 35955388 Problem Chronic post-traumatic stress disorder (PTSD) F43.12 Active 239152284 Problem History of renal cell carcinoma Z85.528 Active 059869907 Problem Nodule of left lung R91.1 Active 467997802 Problem Chronic tension-type headache, intractable G44.221 Active 060421083 Problem Hyperlipidemia, mixed E78.2 Active 228285587 Problem Hirsuties L68.0 Active 015630490 Problem Morbid (severe) obesity due to excess calories E66.01 Active 454219095 Problem FH: polycystic ovary Z84.2 Active 774912919 Problem Chronic pancreatitis K86.1 Active 441003760 ALLERGIES No Information ENCOUNTERS Encounter Location Date Diagnosis [facility] [address] [id number] [address] Feb, [facility] [id number] [address] Dec, [facility] [address] [facility] [id number] [address] Nov, Hyperlipidemia, mixed E78.2 [facility] [address] [address] Nov, Acute suppurative otitis media of right ear without spontaneous rupture of tympanic membrane, recurrence not specified H66.001 and BMI 45.0-49.9, adult Z68.42 [facility] [address] [address] Nov, Hyperlipidemia, mixed E78.2 [place] [id number] [place] [address] 29300- 6092 Nov, [place] [id number] [place] [address] 80816- 4799 Nov, [place] [id number] [place] [address] 35399- 6646 Nov, Nodule of left lung R91.1 [place] [id number] [place] [address] 48718- 9017 Nov, Medicare annual wellness visit, initial Z00.00 [...] adult Z68.42 and Encounter for immunization Z23 [facility] [address] [address] October, [place] [id number] [place] [address] 10226- 3480 October, Nodule of left lung R91.1 [facility] [id number] [address]- 1481 October, Nodule of left lung R91.1 [place] [id number] [place] [address] 46227- 4070 October, Recurrent major depressive disorder, in partial remission F33.41 ; Restless leg syndrome G25.81 ; Generalized social phobia F40.11 ; Chronic post-traumatic stress disorder (PTSD) F43.12 ; BMI 45.0-49.9, adult Z68.42 and Trichotillomania F63.3 [place] [id number] [place] [address] 55114- 0040 October, [place] [address] 18389- 6329 Sep, Chronic fatigue R53.82 and BMI 45.0-49.9, adult Z68.42 [place] [address] 63543- 3266 Aug, [place] [id number] [place] [address] 44050- 7844 Jul, Restless leg syndrome G25.81 and B12 deficiency E53.8 [place] [id number] [place] [address] 18628- 5659 Jul, [place] [address] 25062- 9476 Jul, [place] [id number] [place] [address] 20451- 8583 Jun, [place] [address] 03761- 1394 Jun, Fatigue, unspecified type R53.83 ; History of renal cell carcinoma Z85.528 ; Chronic pancreatitis K86.1 ; Restless leg syndrome G25.81 ; Dark urine R82.99 and BMI 45.0-49.9, adult Z68.42 [facility] [id number] [place] [address] 18929- 8537 Jun, [place] [address] 87780- 9916 Jun, [facility] [address] [address]- 3363 Jun, [facility] [address] [address] 6096 Jun, [facility] [address] [address]- 6450 May, Chronic post-traumatic stress disorder (PTSD) F43.12 ; Moderate episode of recurrent major depressive disorder F33.1 ; Trichotillomania F63.3 and Generalized social phobia F40.11 [place] [address] [address] 12[address] May, [place] [address] [address]- 1763 May, Chronic post-traumatic stress disorder (PTSD) F43.12 ; Moderate episode of recurrent major depressive disorder F33.1 ; Trichotillomania F63.3 and Generalized social phobia F40.11 [facility] [id number] [address] 3087 May, Hyperlipidemia, mixed E78.2 ; Morbid (severe) obesity due to excess calories E66.01 ; Chronic post-traumatic stress disorder (PTSD) F43.12 ; Moderate episode of recurrent major depressive disorder F33.1 ; Trichotillomania F63.3 and Generalized social phobia F40.11 [place] [id number] [address] 55[address] Apr, [place] [id number] [address]- 2431 Apr, Hyperlipidemia, mixed E78.2 ; Morbid (severe) obesity due to excess calories E66.01 ; Chronic post-traumatic stress disorder (PTSD) F43.12 ; Moderate episode of recurrent major depressive disorder F33.1 ; Trichotillomania F63.3 and Generalized social phobia F40.11 [place] [address], [place] [address]- 15[address] Apr, Trichotillomania F63.3 ; Generalized social phobia F40.11 ; Chronic post-traumatic stress disorder (PTSD) F43.12 and Moderate episode of recurrent major depressive disorder F33.1 [facility] [address] [place] [address] 57209- 7320 Apr, [facility] [id number] [place] [address] 70731- 4542 Apr, [facility] [id number] [place] [address] 21102- 6510 Mar, Moderate episode of recurrent major depressive disorder F33.1 ; Trichotillomania F63.3 ; Chronic post-traumatic stress disorder (PTSD) F43.12 ; Generalized social phobia F40.11 and Restless leg syndrome G25.81 [facility] [id number] [place] [address] 49363- 8813 Mar, [facility] [id number] [place] [address] 39607- 2307 Mar, [facility] [id number] [place] [address] 43563- 7301 Feb, Left kidney mass N28.89 [facility] [id number] [place] [address] 70153- 4566 Jan, [facility] [id number] [place] [address] 40252- 6155 Dec, Polydipsia R63.1 ; Chronic pancreatitis K86.1 and Fatigue, unspecified type R53.83 [facility] [id number] [place] [address] 90743- 8444 Nov, [facility] [address] 49647- 8999 Nov, [facility] [id number] [place] [address] 81960- 8066 Nov, Headache around the eyes R51 [facility] [id number] [place] [address] 49960- 8450 Nov, [place] [id number] [place] [address] 78059- 6295 October, STD exposure Z20.2 [facility] [id number] [place] [address] 53909- 3542 October, STD exposure Z20.2 [place] [address] 50653- 5550 October, Chronic post-traumatic stress disorder (PTSD) F43.12 ; Generalized social phobia F40.11 ; Trichotillomania F63.3 and Restless leg syndrome G25.81 [place] [id number] [place] [address] 15088- 2187 October, [place] [id number] [place] [address] 15757- 4039 Sep, [place] [id number] [place] [address] 94450- 5863 Aug, [place] [id number] [place] [address] 85869- 5944 Aug, [place] [id number] [place] [address] 52672- 9805 Aug, Neck mass R22.1 [place] [id number] [place] [address] 49357- 8359 Aug, Atelectasis J98.11 [place] [id number] [place] [address] 62127- 9133 28 Jul, 2016 Hyperlipidemia, mixed E78.2 ; Atypical pneumonia J18.9 and Neck mass R22.1 [place] [id number] [place] [address] 89989- 4483 15 Jul, 2016 Hemoptysis R04.2 [place] [id number] [place] [address] 99301- 5252 Jul, Acute non-recurrent pansinusitis J01.40 ; Hemoptysis R04.2 ; Polydipsia R63.1 and Malaise R53.81 [facility] [id number] [place] [address] 39417 -1126 May, Other viral agents as the cause of diseases classified elsewhere B97.89 and Acute upper respiratory infection, unspecified J06.9 [facility] [address] 8[address]10 -9698 Mar, Nausea R11.0 [facility] [address] 07573 -3100 Dec, Hives L50.[address] 49389- 5681 Dec, [facility] [address] 95958 -3791 Dec, Cutaneous abscess of limb, unspecified L02.419 ; Cellulitis of unspecified part of limb L03.119 ; Encounter for incision and drainage procedure Z01.89 and Encounter for recheck of abscess following incision and drainage Z09 [facility] [id number] [place] [address] 41284 -6886 Dec, Abscess of leg, right L02.415 [place] [id number] [place] [address] 04585- 0506 Dec, Cellulitis of unspecified part of limb L03.119 and Cutaneous abscess of limb, unspecified L02.419 [place] [id number] [place] [address] 42510- 5379 Dec, [address] 33975- 2430 Dec, [facility] [address] 16147 -8998 Aug, [address] [place] [address]- 5603 Aug, [facility] [id number] [place] [address] 20327 -3951 04 Jul, 2015 Pain in unspecified wrist M25.539 and Back pain, thoracic M54.6 [facility] [id number] [place] [address] 24484 -9827 13 Jun, 2015 Strain of right wrist, initial encounter S66.911A [facility] [address] 95063- 6539 11 Jun, 2015 Chronic pancreatitis, unspecified pancreatitis type K86.1 ; Hirsuties L68.0 ; Morbid (severe) obesity due to excess calories E66.01 ; Chronic pancreatitis K86.1 and Asthma J45.909 [place] [address] 93061- 3572 May, [place] [address] 59480- 9341 May, Hyperlipidemia, mixed E78.2 and Muscle spasm of back M62.830 [place] [address] 65474- 7346 Apr, [place] [id number] [place] [address] 67529- 0163 Apr, Torticollis M43.6 [place] [address] 37455- 3250 Apr, Right-sided thoracic back pain M54.6 [place] [address] 41070- 6690 Mar, Rash R21 [place] [address] 64552- 5056 Mar, [place] [address] 54654- 0259 Jan, [place] [address] [place] [address]- 6466 Dec, [facility] [id number] [place] [address] 26956- 9877 Dec, Urinary frequency 788.41 and Nocturia more than twice per night 788.43 [facility] [id number] [place] [address] 79366- 7499 Nov, [facility] [id number] [place] [address] 27360- 1803 Nov, [facility] [id number] [place] [address] 03532- 9170 Nov, Abdominal pain 789.00 [facility] [id number] [place] [address] 13202- 7192 October, TDAP DX V06.1 [facility] [id number] [place] [address] 38880- 7077 October, [facility] [id number] [place] [address] 58080- 3164 October, Disturbance of skin sensation 782.0 ; Wrist pain, right 719.43 ; Hyperlipidemia 272.4 and Skin lesion of face 709.9 [facility] [address] [place] [address] 02567- 1691 Sep, [facility] [id number] [place] [address] 31385- 6557 Sep, [facility] [id number] [place] [address] 49607- 5278 Aug, [facility] [id number] [place] [address] 86780- 0850 Aug, [facility] [id number] [place] [address] 12948- 2776 Aug, [facility] [id number] [place] [address] 59691- 9861 Aug, [facility] [place] [facility] [address] [id number] [place] [address]- 0680 16 Aug, 2014 [facility] [place] [facility] [address] [id number] [place] [address]- 5002 16 Aug, 2014 [facility] [place] [facility] [address] [id number] [place] [address]- 2181 14 Aug, 2014 [facility] [place] [facility] [address] [id number] [place] [address]- 4505 14 Aug, 2014 [facility] [place] [facility] [address] [id number] [place] [address]- 3994 11 Aug, 2014 [facility] [place] [facility] [address] [id number] [place] [address]- 1464 11 Aug, 2014 [facility] [place] [facility] [address] [id number] [place] [address]- 5976 04 Aug, 2014 [facility] [place] [facility] [address] [id number] [place] [address]- 5742 04 Aug, 2014 [facility] [place] [facility] [address] [id number] [place] [address]- 3303 03 Aug, 2014 [facility] [place] [facility] [address] [id number] [place] [address]- 4997 03 Aug, 2014 [facility] [place] [facility] [address] [id number] [place] [address]- 6103 23 Jul, 2014 [facility] [place] [facility] [address] [id number] [place] [address]- 9252 23 Jul, 2014 [facility] [place] [facility] [address] [id number] [place] [address]- 9469 Jul, [facility] [place] [facility] [address] [id number] [place] [address]- 6415 13 Jul, 2014 [facility] [place] [facility] [address] [id number] [place] 0656 04 Jul, 2014 [facility] [place] [facility] [address] [id number], [place] [address]- 7942 04 Jul, 2014 [facility] [address] [id number] [place] [address]- 7026 Jun, [facility] [place] [facility] [address] [id number] [place] [address]- 7389 Jun, [facility] [address] [facility] [id number] [place] [address]- 3065 Jun, [facility] [place] [facility] [address] [id number] [place] [address]- 1228 Jun, [facility] [address] [id number] [place] [address]- 4290 Jun, [facility] [place] [facility] [address] [id number] [place] [address]- 1454 Jun, [facility] [address] [facility] [id number] [place] [address]- 8281 Jun, [facility] [place] [facility] [address] [id number] [place] [address]- 6165 Jun, [facility] [address] [id number] [place] [address]- 8151 May, [facility] [place] [facility] [address] [facility] [id number] [place] [address]- 4059 May, [facility] [place] [facility] [address] [id number] [place] [address]- 1980 18 May, 2014 [facility] [place] [facility] [address] [id number] [address]- 7211 18 May, 2014 [facility] [place] [facility] [address] [id number] [place] [address]- 4214 15 May, 2014 [facility] [place] [facility] [address] [facility] [id number] [place] [address]- 8848 15 May, 2014 [facility] [place] [facility] [address] [facility] [facility] [id number] [place] 0990 11 May, 2014 [facility] [place] [facility] [address] [id number] [place] [address]- 3351 May, [facility] [place] [facility] [address] [id number] [place] [address]- 7849 May, [facility] [place] [facility] [address] [id number] [place] 0940 May, [facility] [place] [facility] [address] [id number] [place] [address]- 6106 May, [facility] [place] [facility] [address] [id number] [place] [address]- 8819 May, [facility] [place] [facility] [address] [id number] [place] [address]- 7074 Apr, [facility] [place] [facility] [address] [id number] [place] [address]- 5779 Apr, [facility] [place] [facility] [address] [id number] [place] [address]- 0726 Apr, [facility] [place] [facility] [address] [id number] [place] [address]- 9819 Apr, [facility] [place] [facility] [address] [id number] [place] [address]- 0541 Apr, [facility] [place] [facility] [address] [id number] [place] [address]- 7284 Apr, [facility] [place] [facility] [address] [id number] [place] [address]- 2697 Apr, [facility] [place] [facility] [address] [id number] [place] [address]- 8094 Apr, [facility] [place] [facility] [address] [id number] [place] [address]- 9863 Apr, [facility] [place] [facility] [address] [id number] [place] [address]- 7057 13 Apr, 2014 [facility] [place] [facility] [address] [id number] [place] [address]- 1822 Apr, [facility] [place] [facility] [address] [id number] [place] [address]- 2351 Apr, [facility] [place] [facility] [address] [id number] [place] [address]- 9413 Mar, [facility] [place] [facility] [address] [id number] [place] [address]- 4576 Mar, [facility] [place] [facility] [address] [id number] [place] [address]- 7853 Mar, [facility] [place] [facility] [address] [id number] [place] [address]- 7237 Mar, [facility] [place] [facility] [address] [id number] [place] [address]- 5911 Feb, [facility] [place] [facility] [address] [id number] [place] [address]- 0369 Feb, [facility] [place] [facility] [address] [id number] [place] [address]- 8998 05 Feb, 2013 [facility] [place] [facility] [address] [id number] [place] [address]- 2151 05 Feb, 2014 [facility] [place] [facility] [address] [id number] [place] [address]- 4270 05 Feb, 2014 [facility] [place] [facility] [address] [id number] [address]- 0459 Feb, 2013 [facility] [place] [facility] [address] [id number], [place] [address]- 3351 Jan, [facility] [place] [facility] [address] [id number] [place] [address]- 1835 Jan, [facility] [place] [facility] [address] [id number] [place] [address]- 5301 Jan, [facility] [place] [facility] [address] [id number] [place] [address]- 5639 Jan, [facility] [place] [facility] [address] [id number] [place] [address]- 9569 Jan, [facility] [place] [facility] [address] [id number] [place] [address]- 1699 Jan, [facility] [place] [facility] [address] [id number] [place] [address]- 4501 Jan, [facility] [place] [facility] [address] [id number] [place] [address]- 5226 Jan, [facility] [place] [facility] [address] [id number] [place] [address]- 9289 Jan, [facility] [place] [facility] [address] [id number] [place] [address]- 5003 Jan, [facility] [place] [facility] [address] [id number] [place] [address]- 9356 Jan, [facility] [place] [facility] [address] [id number] [place] [address]- 7513 Jan, [facility] [place] [facility] [address] [id number] [place] [address]- 9394 Jan, [facility] [place] [facility] [address] [id number] [place] [address]- 8877 Jan, [facility] [place] [facility] [address] [id number] [place] [address]- 1128 Dec, [facility] [place] [facility] [address] [id number] [place] [address]- 1488 Dec, [facility] [place] [facility] [address] [id number] [place] [address]- 7704 Dec, [facility] [place] [facility] [address] [id number] [place] [address]- 1345 Dec, [facility] [place] [facility] [address] [id number] [place] [address] Nov, [facility] [place] [facility] [address] [id number] [place] [address] Nov, [facility] [place] [facility] [address] [id number] [place] [address] Nov, [facility] [place] [facility] [address] [id number] [place] [address] Nov, [facility] [place] [facility] [address] [id number] [place] [address] Nov, [facility] [place] [facility] [address] [id number] [place] [address] October, [facility] [place] [facility] [address] [id number] [place] [address] October, [facility] [place] [facility] [address] [id number] [place] [address] October, [facility] [place] [facility] [address] [id number] [place] [address] October, [facility] [place] [facility] [address] [id number] [place] [address] October, [facility] [place] [facility] [address] [id number] [place] [address] October, [facility] [place] [facility] [address] [id number] [place] [address] October, [facility] [place] [facility] [address] [id number] [place] [address] October, [facility] [place] [facility] [address] [id number] [place] [address] October, [facility] [place] [facility] [address] [id number] [place] [address] October, [facility] [place] [facility] [address] [id number] [place] [address] October, [facility] [place] [facility] [address] [id number] [place] [address] October, [facility] [place] [facility] [address] [id number] [place] [address] October, [facility] [place] [facility] [address] [id number] [place] [address] October, [facility] [place] [facility] [address] [id number] [place] [address] Sep, [facility] [place] [facility] [address] [id number] [place] [address] Sep, [facility] [place] [facility] [address] [id number] [place] [address] Sep, [facility] [place] [facility] [address] [id number] [place] [address] Sep, [facility] [place] [facility] [address] [id number] [place] [address] Sep, [facility] [place] [facility] [address] [id number] [place] [address]- [address] Sep, [facility] [place] [facility] [address] [id number] [place] [address] Sep, [facility] [place] [facility] [address] [id number] [place] [address] Sep, [facility] [place] [facility] [address] [id number] [place] [address] Sep, [facility] [place] [facility] [address] [id number] [place] [address] Sep, [facility] [place] [facility] [address] [id number] [place] [address] Sep, [facility] [place] [facility] [address] [id number] [place] [address] Sep, [facility] [place] [facility] [address] [id number] [place] [address] Sep, [facility] [place] [facility] [address] [id number] [place] [address] Sep, [facility] [place] [facility] [address] [id number] [place] [address] Sep, [facility] [place] [facility] [address] [id number] [place] [address] Aug, [facility] [place] [facility] [address] [id number] [place] [address] Aug, [facility] [place] [facility] [address] [id number] [place] [address] Aug, [facility] [place] [facility] [address] [id number] [place] [address] 1062 Aug, [facility] [place] [facility] [address] [id number] [place] [address] 7283 Jul, [facility] [place] [facility] [address] [id number] [place] [address] 5652 Jul, [facility] [place] [facility] [address] [id number] [place] [address] Jul, [facility] [place] [facility] [address] [id number] [place] [address] 3[address] Jul, [facility] [place] [facility] [address] [id number] [place] [address] Jun, [facility] [place] [facility] [address] [id number] [place] [address] 2142 Jun, [facility] [place] [facility] [address] [id number] [place] [address] 5465 Jun, [facility] [place] [facility] [address] [id number] [place] [address]- 5[address] Jun, [facility] [place] [facility] [address] [id number] [place] [address] 1302 Jun, [facility] [place] [facility] [address] [id number] [place] [address]- 1667 Jun, [facility] [place] [facility] [address] [id number] [place] [address]- 7475 08 Jun, 2013 [facility] [address] [id number] [place] [address]- 4939 08 Jun, 2013 [facility] [address] [id number] [place] [address]- 1692 20 May, 2013 [facility] [address] [facility] [id number] [place] [address] 4356 20 May, 2013 [facility] [address] [id number] [place] [address]- 7280 18 May, 2013 [facility] [address] [id number] [place] [address] 18 May, 2013 [facility] [address] [id number] [place] [address]- 6131 17 May, 2013 [facility] [address] [facility] [id number] [place] [id number] 17 May, 2013 [facility] [address] [id number] [address] 17 May, 2013 [facility] [address] [id number] [place] [address]- 6828 17 May, 2013 [facility] [address] [facility] [id number] [place] [address]- 5247 16 May, 2013 [facility] [address] [id number], [place] [address] 1596 16 May, 2013 [facility] [place] [facility] [address] [id number], [place] [address] 8978 14 May, 2013 [facility] [place] [facility] [address] [id number] [place] [address]- 6103 14 May, 2013 [facility] [place] [facility] [address] [id number] [place] [address]- 4766 13 May, 2013 [facility] [place] [facility] [address] [id number] [place] [address]- 6231 13 May, 2013 [facility] [address] [id number] [place] [address]- 3520 May, [facility] [address] [id number] [place] [address]- 9193 May, [facility] [place] [facility] [address] [id number] [place] [address] May, [facility] [address] [id number] [place] [address]- 5247 May, [facility] [place] [facility] [address] [id number] [place] [address]- 5518 Apr, [facility] [address] [id number] [place] [address]- 1788 Apr, [facility] [place] [facility] [address] [id number] [place] [address]- 7225 Apr, [facility] [address] [id number] [place] [address]- 1447 Apr, [facility] [place] [facility] [address] [id number] [place] [address]- 0124 Aug, [facility] [place] [facility] [address] [id number] [place] [address]- 4879 Aug, [facility] [place] [facility] [address] [id number] [place] [address]- 9627 Aug, [facility] [place] [facility] [address] [id number] [place] [address]- 7881 05 Aug, 2012 [facility] [place] [facility] [address] [id number] [place] [address]- 8345 Jul, [facility] [place] [facility] [address] [id number] [place] [address]- 6349 Jun, [facility] [place] [facility] [address] [id number] [place] [address]- 4205 Jun, [facility] [place] [facility] [address] [id number] [place] [address]- 3625 Jun, [facility] [place] [facility] [address] [id number] [place] [address]- 7792 Jun, [facility] [address] [id number] [place] [address]- 5963 May, [facility] [place] [facility] [address] [id number] [place] [address]- 3668 May, [facility] [place] [facility] [address] [id number] [place] [address]- 3356 May, [facility] [address] [id number] [place] [address]- 6799 May, [facility] [address] [id number] [place] [address]- 8883 May, [facility] [address] [id number] [place] [address]- 9697 May, [facility] [address] [id number] [place] [address] 1966 May, [facility] [address] [id number] [place] [address]- 3010 Apr, [facility] [address] [id number] [place] [address]- 9876 Apr, [facility] [place] [facility] [address] [id number] [place] [address]- 6693 Apr, [facility] [place] [facility] [address] [id number] [place] [address]- 0245 Apr, [facility] [place] [facility] [address] [id number] [place] [address]- 4281 Apr, [facility] [place] [facility] [address] [id number] [place] [address]- 4383 Apr, [facility] [place] [facility] [address] [id number] [place] [address]- 1299 Apr, [facility] [place] [facility] [address] [id number] [place] [address]- 2546 Mar, [facility] [place] [facility] [address] [id number] [place] [address]- 9068 Mar, [facility] [place] [facility] [address] [id number] [place] [address]- 7769 Mar, [facility] [place] [facility] [address] [id number] [place] [address]- 0966 Mar, [facility] [place] [facility] [address] [id number] [place] [address]- 0213 Mar, [facility] [place] [facility] [address] [id number] [place] [address] Mar, [facility] [place] [facility] [address] [id number] [place] [address]472 Mar, [facility] [place] [facility] [address] [id number] [place] [address] Mar, [facility] [place] [facility] [address] [id number] [place] [address]- 1571 Mar, [facility] [place] [facility] [address] [id number] [place] [address]- 1131 Mar, [facility] [place] [facility] [address] [id number] [place] [address]- 0525 Mar, [facility] [place] [facility] [address] [id number] [address] 1709 Mar, [facility] [place] [facility] [address] [id number], [place] [address]- 1079 Feb, [facility] [place] [facility] [address] [id number] [place] [address]- 9835 Jan, [facility] [place] [facility] [address] [id number] [place] [address]- 4044 Jan, [facility] [place] [facility] [address] [id number] [place] [address]- 3190 Jan, [facility] [place] [facility] [address] [id number] [place] [address]- 2546 Jan, [facility] [address] [id number] [place] [address]- 0315 Jan, [facility] [address] [id number] [place] [address]- 3507 Dec, [facility] [address] [id number] [place] [address]- 4751 Dec, [facility] [address] [id number] [place] [address]- 5718 Nov, [facility] [address] [id number] [place] [address]- 6471 Nov, [facility] [address] [id number] [place] [address]- 6006 Nov, [facility] [address] [id number] [place] [address]- 8927 October, [facility] [address] [id number] [place] [address]- 6506 October, [facility] [address] [id number] [place] [address]- 5056 October, [facility] [address] [id number] [place] [address]- 6464 October, [facility] [address] [id number] [place] [address]- 3478 October, [facility] [address] [id number] [place] [address]- 2431 October, [facility] [place] [facility] [address] [id number] [place] [address]- 9765 October, [facility] [address] [id number] [place] [address]- 2259 Sep, [facility] [address] [id number] [place] [address] Sep, [facility] [address] [id number] [place] [address]- 3966 26 Sep, 2011 [facility] [place] [facility] [address] [id number] [place] [address]- 8733 25 Sep, 2011 [facility] [place] [facility] [address] [id number] [place] [address]- 2746 24 Sep, 2011 [facility] [place] [facility] [address] [id number] [place] [address]- 5554 19 Sep, 2011 [facility] [place] [facility] [address] [id number] [place] [address]- 5945 17 Sep, 2011 [facility] [place] [facility] [address] [id number] [place] [address]- 7685 16 Sep, 2011 [facility] [place] [facility] [address] [id number] [place] [address]- 0913 16 Sep, 2011 [facility] [place] [facility] [address] [id number] [place] [address]- 9076 14 Sep, 2011 [facility] [place] [facility] [address] [id number] [place] [address]- 7518 13 Sep, 2011 [facility] [place] [facility] [address] [id number] [place] [address]- 6370 10 Sep, 2011 [facility] [place] [facility] [address] [id number] [place] [address]- 5784 09 Sep, 2011 [facility] [place] [facility] [address] [id number] [place] [address]- 6634 27 Aug, 2011 [facility] [place] [facility] [address] [id number] [place] [address]- 0511 12 Aug, 2011 [facility] [place] [facility] [address] [id number] [place] [address]- 2197 08 Aug, 2011 [facility] [place] [facility] [address] [id number] [place] [address]- 6557 06 Aug, 2011 [facility] [place] [facility] [address] [id number], [place] [address]- 7632 28 Jul, 2011 [facility] [address] [id number] [place] [address]- 3306 22 Jul, 2011 [facility] [address] [id number] [place] [address] 2546 16 Jul, 2011 [facility] [address] [id number] [place] [address]- 1646 15 Jul, 2011 [facility] [address] [id number] [place] [address] 2546 14 Jul, 2011 [facility] [address] [id number] [place] [address]- 8896 10 Jul, 2011 [facility] [address] [id number] [place] [address]- 9400 30 Jun, 2011 [facility] [address] [id number] [place] [address]- 0223 05 Jun, 2011 [facility] [address] [id number] [place] [address]- 0979 Jun, [facility] [address] [id number] [place] [address]- 5620 Jun, [facility] [address] [id number] [place] [address]- 0947 Jun, [facility] [address] [id number] [place] [address] 2546 May, [facility] [address] [id number] [place] [address] 2546 May, [facility] [place] [facility] [address] [id number] [place] [address]- 7346 14 May, 2011 [facility] [place] [facility] [address] [id number] [place] [address]- 2546 14 May, 2011 [facility] [address] [id number] [place] [address]- 2729 May, [facility] [place] [facility] [address] [id number] [place] [address]- 4153 May, [facility] [place] [facility] [address] [id number] [place] [address]11 May, [facility] [place] [facility] [address] [id number] [place] [address]- 6227 Apr, [facility] [place] [facility] [address] [id number] [place] [address]- 4793 Apr, [facility] [place] [facility] [address] [id number] [place] [address]- 8471 Apr, [facility] [place] [facility] [address] [id number] [place] [address]- 2672 Apr, [facility] [place] [facility] [address] [id number] [place] [address] Apr, [facility] [place] [facility] [address] [id number] [place] [address]- 7416 Apr, [facility] [place] [facility] [address] [id number] [place] [address]- 7758 Mar, [facility] [place] [facility] [address] [id number] [place] [address]- 7236 Mar, [facility] [place] [facility] [address] [id number] [place] [address]- 0683 Mar, [facility] [place] [facility] [address] [id number], [place] [address]- 6728 Mar, [facility] [place] [facility] [address] [id number] [place] [address]- 8638 Jan, [facility] [place] [facility] [address] [id number] [place] [address]- 2058 Dec, [facility] [place] [facility] [address] [id number] [place] [address]- 6981 Dec, [facility] [place] [facility] [address] [id number], [place] [address]- 7243 October, [facility] [address] [id number] [place] [address]- 5111 Sep, [facility] [place] [facility] [address] [id number] [place] [address]- 7206 14 Sep, 2010 [facility] [place] [facility] [address] [id number] [place] [address]- 3206 17 Jul, 2010 [facility] [place] [facility] [address] [id number] [place] [address]- 6609 16 Jul, 2010 [facility] [place] [facility] [address] [id number] [place] [address]- 0883 31 May, 2010 [facility] [place] [facility] [address] [id number] [place] [address]- 6780 May, [facility] [address] [facility] [id number] [place] [address]- 5303 May, [facility] [place] [facility] [address] [id number] [place] [address]- 8779 May, [facility] [place] [facility] [address] [facility] [id number] [place] [address]- 1600 Apr, [facility] [place] [facility] [address] [facility] [id number] [place] [address]- 3294 Apr, [facility] [place] [facility] [address] [facility] [id number] [place] [address]- 4209 Apr, [facility] [place] [facility] [address] [id number], [place] [address]- 3064 Apr, [facility] [place] [facility] [address] [facility] [id number] [place] [address]- 0691 Apr, [facility] [place] [facility] [address] [facility] [id number] [place] [address]- 4065 Mar, [facility] [place] [facility] [address] [facility] [id number] [place] [address]- 8030 14 Mar, 2010 [facility] [place] [facility] [address] [id number] [place] [address]- 6306 13 Mar, 2010 [facility] [place] [facility] [address] [id number] [place] [address]- 5306 12 Mar, 2010 [facility] [place] [facility] [address] [id number] [place] [address]- 1038 Jan, [facility] [place] [facility] [address] [id number] [place] [address]- 0286 15 Dec, 2009 [facility] [place] [facility] [address] [id number] [place] [address]- 0392 Sep, [facility] [place] [facility] [address] [id number] [place] [address]- 8283 08 May, 2009 [facility] [place] [facility] [address] [id number] [place] [address]- 0486 May, [facility] [place] [facility] [address] [id number] [place] [address]- 0305 May, [facility] [place] [facility] [address] [id number] [place] [address]- 3085 17 Apr, 2009 [facility] [place] [facility] [address] [id number] [place] [address]- 9339 17 Apr, 2009 [facility] [place] [facility] [address] [facility] [id number] [place] [address]- 4339 10 Apr, 2009 [facility] [place] [facility] [address] [id number] [place] [address]- 8578 10 Apr, 2009 [facility] [place] [facility] [address] [id number] [place] [address]- 5794 09 Apr, 2009 [facility] [place] [facility] [address] [id number] [place] [address]- 7968 15 Mar, 2009 [facility] [place] [facility] [address] [id number] [place] 6050 15 Mar, 2009 [facility] [place] [facility] [address] [id number] [place] [address]- 2087 Jul, IMMUNIZATIONS No Known Immunizations SOCIAL HISTORY [...] 08/2017 Surgical History nephrectomy 03/2017 Hospitalization History [facility]ulitis-[facility] 12/20/15 [facility]- Abd pain 03/07/2017 [facility]- Abd pain 03/14/2017 [facility]- No bowel movement, rash 04/13/2017 [facility]- Abd pain r/t kidney surgery on 04/17/2017 [facility]- Abd pain r/t kidney surgery on 04/18/2017 [facility]- Lower abd pain 04/30/2017 [facility]- Cannot urinate 05/30/2017 [facility]- Pancreatitis Sx 06/29/2017 [facility]- Stomach pain 07/22/2017 [facility]- Left side pain 08/12/2017 [facility]- Incision site infection 08/30/2017 Hospitalization History [facility]- Post Op Seroma/Hematoma Left Abdomen. Discharged 09/04/17- Dr Daniel 09/02/2017 Hospitalization History [facility]- Right shoulder and back pain 2017
[2017-12-18] MEDS ORDERED: DIATRIZOATE MEGLUM/SODIUM 37% 120 ML (GASTROGRAFIN) NG ONE (03:00)
[2017-12-18] MEDS ORDERED: HYDROmorphone 1 MG/ML (DILAUDID) 1 ML SYRINGE IV ONE (03:00)
[2017-12-18] MEDS ORDERED: PROMETHAZINE INJ 25 MG/ML (PHENERGAN) AMP IVP ONE (03:00)
[2017-12-18] MEDS ORDERED: ONDANSETRON 4 MG/2 ML (SDV) Z0FRAN IVP PRN (03:00)
--- NOTE | 2017-12-18 03:06 | ED Abdominal Pain ---
General Chief Complaint: Abdominal/GI Problems Stated Complaint: N/V/D Nursing Triage Note: PT PRESENTS TO ER WITH COMPLAINT OF NAUSE, VOMITING, AND ABD PAIN. STATES EHWAS SEEN HERE SATURDAY AND DIAGNOSED WITH C DIFF. STATES SHE WENT AND SAW SAI IN OFFICE YESTERDAY, ATTEMPTED TO HAVE IV FLUIDS, BUT UNABLE TO ESTABLISH IV. STATES SHE WAS INSTRUCTED IF SHE COULDNT KEEP FLUIDS DOWN TO COME TO ER. Sepsis Screen: No Definite Risk Source of Information: Patient, Other Exam Limitations: No Limitations History of Present Illness Date Seen by Provider: Dec 18, 2017 Time Seen by Provider: 02:51 Initial Comments The patient presents to the ER by private conveyance with a chief complaint that she has been dealing with C. difficile colitis and treated with metronidazole for the last 5 days but she's continued to have nausea vomiting and abdominal pain mostly on her left side radiating to her midepigastric region. She says started out that she had a stage III cancer on her left kidney and had that removed and then she developed a incisional hernia repaired by Dr. Daniel a few weeks ago. Since that time she had a large collection of fluid either seroma versus abscess that was drained with a indwelling drain. She asked him he pulled the drain out after a few days. She continued to have pain fevers chills and was found to have C. difficile colitis from her kidney doctor and a CT scan showed a collection of fluid at the same site. She went to Dr. Daniel's office and the PA tried to stick a needle in it but could not get any fluid out. They did not set her up for her any further drain for interventional radiology that she is aware of. She also has a history of pancreatitis and follows with a smoking pipe coater. She's not having any fevers or chills now but she is having intractable nausea vomiting not responding to 4 mg Zofran every 8 hours. She went to her primary care doctor Saturday, yesterday and was given a shot of Phenergan which helped some but she continued to have nausea and vomiting shortly afterwards. She says they tried to start an IV to give her some IV fluids and they got lab but they could not get an IV so she never got any fluids. Eventually she went home and was told to follow-up in the ER if she was unable to tolerate the nausea medicines. She says she did get her medicines down at 8:00 with a dose of Tylenol, Flagyl and her regular medicines Down for a Couple Hours but She's Continued to Have Nausea and Vomiting. Allergies and Home Medications Allergies Coded Allergies: meperidine (Verified Allergy, Unknown, 08/20/17) penicillin G (Verified Allergy, Unknown, 08/20/17) Home Medications Acetaminophen 500 Mg Tablet, 500-1,000 MG PO Q6H PRN for PAIN-MODERATE, ( Reported) Bisacodyl 5 Mg Tablet, 5-10 MG PO DAILY PRN for CONSTIPATION-4TH LINE, (Reported ) Cyanocobalamin 1,000 Mcg/Ml Inj, 1,000 MCG IJ MONTHLY, (Reported) Cyclobenzaprine HCl 10 Mg Tablet, 10 MG PO Q8H PRN for SPASMS Prescribed by: YUKI MARCH on 10/22/171551 Cyclobenzaprine HCl 10 Mg Tablet, 10 MG PO Q8H PRN for SPASMS Prescribed by: YUKI MARCH on 12/04/17922 Diphenhydramine HCl 25 Mg Capsule, 25 MG PO Q6H PRN for ALLERGIES, (Reported) Estradiol 2 Mg Tablet, 2 MG PO HS, (Reported) Fluoxetine HCl 40 Mg Capsule, 40 MG PO HS, (Reported) Hydrocodone Bit/Acetaminophen 1 Ea Tablet, 1-2 EACH PO Q8H Prescribed by: YUKI MARCH on 12/04/17922 Hydrocodone/Acetaminophen 1 Each Tablet, 1-2 TAB PO Q4H PRN for PAIN-MODERATE, ( Reported) Metronidazole 500 Mg Tablet, 500 MG PO TID Prescribed by: GEORGES FINN on 12/13/171814 Ondansetron 8 Mg Tab.rapdis, 8 MG PO BID, (Reported) Polyethylene Glycol 3350 255 Gm Powder, 17 GM PO BID PRN for CONSTIPATION-2ND LINE, (Reported) Prednisone 20 Mg Tab, 40 MG PO DAILY Prescribed by: YUKI MARCH on 10/22/171551 Ropinirole HCl 4 Mg Tablet, 4 MG PO HS, (Reported) Sulfamethoxazole/Trimethoprim 1 Each Tablet, 1 TAB PO BID, (Reported) 10 DAY THERAPY FILLED 08-31-17 Patient Home Medication List Home Medication List Reviewed: Yes Review of Systems Constitutional: No chills, No diaphoresis EENTM: No Blurred Vision, No Double Vision Respiratory: Denies Cough, Denies Shortness of Air Cardiovascular: Denies Chest Pain, Denies Edema Gastrointestinal: Denies Abdomen Distended; Abdominal Pain; Denies Constipated ; Diarrhea; Denies Difficulty Swallowing; Nausea, Poor Fluid Intake; Denies Rectal Bleeding; Vomiting Genitourinary: Denies Burning, Denies Drainage Musculoskeletal: No back pain, No joint pain Skin: No pruritus, No rash Psychiatric/Neurological: Denies Headache, Denies Numbness, Denies Paresthesia Past Zburcro-Onphyh-Uwmenr Hx Patient Social History Alcohol Use: Denies Use Recreational Drug Use: No Smoking Status: Never a Smoker Type Used: Cigarettes 2nd Hand Smoke Exposure: No Recent Foreign Travel: No Contact w/Someone Who Travel: No Recent Infectious Disease Expo: No Recent Hopitalizations: No Physical Abuse: No Sexual Abuse: No Immunizations Up To Date Tetanus Booster (TDap): Unknown PED Vaccines UTD: No Date of Pneumonia Vaccine: May 17, 2012 Date of Influenza Vaccine: Jul 03, 2012 Seasonal Allergies Seasonal Allergies: Yes (MILD) Past Medical History Surgeries: Yes Abdominal, Adenoidectomy, Appendectomy, Gallbladder, 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, Nephrectomy, Orthopedic, Tonsillectomy Respiratory: Yes (HASNT USED INHALER IN > 4 YRS) Asthma Currently Using CPAP: No Currently Using BIPAP: No Cardiac: No Neurological: Yes (RESTLESS LEG SYNDROME) Headaches /Migraines 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: No 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 Sexually Transmitted Disease: No HIV/AIDS: No Genitourinary: Yes (L KIDNEY REMOVED FOR TUMOR;) UTI-Chronic Gastrointestinal: Yes (ENLARGED LIVER/FATTY LIVER) Liver Disease/Jaundice, Chronic Constipation, Pancreatitis, Polyps Musculoskeletal: Yes (COCCYX-REPAIRED, MAY HAVE SIGNS OF ARTHRITIS) Chronic Back Pain Endocrine: Yes (CHRONIC PANCREATITIS) HEENT: No Loss of Vision: Denies Hearing Impairment: Denies Cancer: Yes Kidney Did You Recieve Any Treatments: Yes What Type of Treatment Did You: Surgical Intervention Psychosocial: Yes Anxiety, Depression Nursing Suicide Risk Score: 0 Integumentary: No Herpes Blood Disorders: No Adverse Reaction/Blood Tranf: No (N/A) Family Medical History Cardiovascular disease 19 FATHER Completed stroke 19 FATHER Diabetes mellitus 19 FATHER Hypercholesterolemia 19 FATHER 19 MOTHER Hypertension 19 FATHER 19 MOTHER Neoplasm 19 MOTHER Psychosocial problem 19 FATHER 19 MOTHER Cancer, Diabetes, Hypertension Physical Exam Vital Signs Vital Signs - First Documented 12/18/17 01:58 Pulse 90 Resp 20 B/P (MAP) 132/86 (101) Pulse Ox 96 O2 Delivery Room Air Capillary Refill : Less Than 3 Seconds General Appearance: WD/WN, no apparent distress HEENT: PERRL/EOMI, pharynx normal Neck: non-tender, full range of motion Respiratory: chest non-tender, lungs clear, normal breath sounds, no respiratory distress, no accessory muscle use Cardiovascular: normal peripheral pulses, regular rate, rhythm Peripheral Pulses: 2+ Radial Pulses (R), 2+ Radial Pulses (L) Gastrointestinal: normal bowel sounds, soft, tenderness (over previous left upper quadrant incision) Extremities: normal range of motion, normal inspection, normal capillary refill Neurologic/Psychiatric: alert, oriented x 3 Skin: normal color, warm/dry Focused Exam Lactate Level 12/18/17 03:42: Lactic Acid Level 1.07 Lactic Acid Level Laboratory Tests Test 12/18/17 03:42 Lactic Acid Level 1.07 MMOL/L (0.50-2.00) Progress/Results/Core Measures Results/Orders Lab Results Laboratory Tests Test 12/18/17 02:08 12/18/17 03:17 12/18/17 03:42 Range/Units White Blood Count 8.7 4.3-11.0 10^3/uL Red Blood Count 4.25 L 4.35-5.85 10^6/uL Hemoglobin 12.2 11.5-16.0 G/DL Hematocrit 36 35-52 % Mean Corpuscular Volume 85 80-99 FL Mean Corpuscular Hemoglobin 29 25-34 PG Mean Corpuscular Hemoglobin Concent 34 32-36 G/DL Red Cell Distribution Width 14.2 10.0-14.5 % Platelet Count 278 130-400 10^3/uL Mean Platelet Volume 9.7 7.4-10.4 FL Neutrophils (%) (Auto) 54 42-75 % Lymphocytes (%) (Auto) 37 12-44 % Monocytes (%) (Auto) 6 0-12 % Eosinophils (%) (Auto) 3 0-10 % Basophils (%) (Auto) 0 0-10 % Neutrophils # (Auto) 4.7 1.8-7.8 X 10^3 Lymphocytes # (Auto) 3.2 1.0-4.0 X 10^3 Monocytes # (Auto) 0.5 0.0-1.0 X 10^3 Eosinophils # (Auto) 0.3 0.0-0.3 10^3/uL Basophils # (Auto) 0.0 0.0-0.1 10^3/uL Sodium Level 139 135-145 MMOL/L Potassium Level 4.0 3.6-5.0 MMOL/L Chloride Level 106 98-107 MMOL/L Carbon Dioxide Level 20 L 21-32 MMOL/L Anion Gap 13 5-14 MMOL/L Blood Urea Nitrogen 13 7-18 MG/DL Creatinine 0.89 0.60-1.30 MG/DL Estimat Glomerular Filtration Rate > 60 BUN/Creatinine Ratio 15 Glucose Level 113 H 70-105 MG/DL Calcium Level 9.9 8.5-10.1 MG/DL Total Bilirubin 0.2 0.1-1.0 MG/DL Aspartate Amino Transf (AST/SGOT) 27 5-34 U/L Alanine Aminotransferase (ALT/SGPT) 17 0-55 U/L Alkaline Phosphatase 52 40-136 U/L Total Protein 7.4 6.4-8.2 GM/DL Albumin 4.0 3.2-4.5 GM/DL Amylase Level 66 25-125 U/L Lipase 66 8-78 U/L Urine Color YELLOW Urine Clarity SLIGHTLY CLOUDY Urine pH 6 5-9 Urine Specific [place] 1.015 L 1.016-1.022 Urine Protein NEGATIVE NEGATIVE Urine Glucose (UA) NEGATIVE NEGATIVE Urine Ketones NEGATIVE NEGATIVE Urine Nitrite NEGATIVE NEGATIVE Urine Bilirubin NEGATIVE NEGATIVE Urine Urobilinogen NORMAL NORMAL MG/DL Urine Leukocyte Esterase 1+ H NEGATIVE Urine RBC (Auto) NEGATIVE NEGATIVE Urine RBC NONE /HPF Urine WBC RARE /HPF Urine Squamous Epithelial Cells 10-25 H /HPF Urine Crystals NONE /LPF Urine Bacteria TRACE /HPF Urine Casts NONE /LPF Urine Mucus NEGATIVE /LPF Urine Culture Indicated NO Prothrombin Time 13.3 12.2-14.7 SEC INR Comment 1.0 0.8-1.4 Activated Partial Thromboplast Time 27 24-35 SEC Lactic Acid Level 1.07 0.50-2.00 MMOL/L My Orders Orders - MAKAYLA HAWKINS Cbc With Automated Diff (12/18/17 02:57) Comprehensive Metabolic Panel (12/18/17 02:57) Lactic Acid Analyzer (12/18/17 02:57) Blood Culture (12/18/17 02:57) Ua Culture If Indicated (12/18/17 02:57) Protime With Inr (12/18/17 02:57) Partial Thromboplastin Time (12/18/17 02:57) Chest 1 View, Ap/Pa Only (12/18/17 02:57) O2 (12/18/17 02:57) Ondansetron Injection (Zofran Injectio (12/18/17 03:00) Saline Lock/Iv-Start (12/18/17 02:57) Saline Lock/Iv-Start (12/18/17 02:57) Vital Signs Adult Sepsis Patie Q15M (12/18/17 02:57) Remove Rings In Anticipation O (12/18/17 02:57) Ns Iv 1000 Ml (Sodium Chloride 0.9%) (12/18/17 02:57) Ct Abdomen/Pelvis Wo (12/18/17 02:57) Diatrizoate Meglum/Sodium 37% (Gastrogra (12/18/17 03:00) Promethazine Injection (Phenergan Injec (12/18/17 03:00) Hydromorphone Injection (Dilaudid Inje (12/18/17 03:00) Lipase (12/18/17 03:01) Amylase (12/18/17 03:01) Medications Given in ED Current Medications Medications Dose Ordered Sig/Neal Route Start Time Stop Time Status Last Admin Dose Admin Hydromorphone HCl 0.5 mg ONCE ONCE IV 12/18/17 03:00 12/18/17 03:02 DC 12/18/17 03:11 0.5 MG Ondansetron HCl 12 mg ONCE PRN IVP 12/18/17 03:00 12/18/17 03:12 DC 12/18/17 03:11 12 MG Promethazine HCl 25 mg ONCE ONCE IVP 12/18/17 03:00 12/18/17 03:02 DC 12/18/17 03:11 25 MG Vital Signs/I&O 12/18/17 01:58 Pulse 90 Resp 20 B/P (MAP) 132/86 (101) Pulse Ox 96 O2 Delivery Room Air Blood Pressure Mean: 101 Progress Progress Note #1: Time: 04:12 Progress Note Despite large doses of Zofran and Phenergan the patient was unable to tolerate the Gastrografin. We'll go ahead and proceed with CT scan without contrast look for possible fluid collection. Progress Note #2: Time: 05:21 Progress Note Apparently has been a delay with getting a report back from CT. Patient is resting comfortably without nausea. Diagnostic Imaging Diagonstic Imaging: Xray Plain Films/CT/US/NM/MRI: chest (1 view) Comments Poor inspiration effort. No acute cardiopulmonary process noted. Reviewed: Reviewed by Me Diagonstic Imaging: CT Plain Films/CT/US/NM/MRI: abdomen, pelvis (without contrast) Comments Stomach wall mildly thickened. Pancreas unremarkable. No cyst or inflammatory features. Small bowels decompressed. Colon with modest amount of stool. Left abdominal flank with a 6 x 3 x 2 cm heterogenous fluid collection. Status post cholecystectomy, left nephrectomy. Fluid collection in the left anterior abdominal wall has decreased in size since prior CT. There is more prominent irregular wall thickening and surrounding edema/inflammation which could relate to a recent drainage of the superficial abscess. No evidence of bowel obstruction or perforation. There is a loop of small bowel in close proximity to the left abdominal wall fluid collection with suggest the possibility of a fistula. 2 left lower lobe pulmonary nodules one is decreased in size since prior CT smaller is unchanged. There are multiple small tissue technician he screams just below the left hemidiaphragm suggesting possibility that this could represent intrathoracic splenosis. Metastatic disease is not excluded and attention to follow-up exams is recommended. Status post left nephrectomy, cholecystectomy, appendectomy and hysterectomy. Reviewed: Reviewed Night Hawk Study, Reviewed by Me Departure Impression Primary Impression: History of Clostridium difficile colitis Additional Impressions: Intractable nausea and vomiting Qualified Codes: R11.2 - Nausea with vomiting, unspecified Mild dehydration Left lateral abdominal pain Abdominal wall fluid collections Disposition: HOME, SELF-CARE Condition: Improved Departure-Patient Inst. Decision time for Depature: 05:59 Referrals: CARMEN GIBBS MD (PCP/Family) Primary Care Physician YUNIOR DANIEL MD Patient Instructions: [id number] Add. Discharge Instructions: Use 2 tablets of Zofran every 6 hours as needed for nausea. You can also use one tablet of Phenergan every 6 hours as needed for nausea. Drink plenty of fluids and follow-up with your primary care provider. Continue taking your antibiotics. Start taking probiotics twice a day 1-2 capsules. All discharge instructions reviewed with patient and/or family. Voiced understanding. Scripts Promethazine HCl (Promethazine Tablet) 25 Mg Tablet 25 MG PO Q6H PRN for NAUSEA/VOMITING for 7 Days, #14 TAB 0 Refills Prov: MAKAYLA HAWKINS 12/18/17 Ondansetron (Ondansetron Odt) 4 Mg Tab.rapdis 8 MG PO Q6H PRN for NAUSEA/VOMITING, #12 TAB 0 Refills Prov: MAKAYLA HAWKINS 12/18/17 Copy Copies To 1: EMIL ROLON TITUS J Dec 18, 2017 03:06
[2017-12-18 03:09] LABS: BASOPHILS % (AUTO) 0 % (0-10); EOSINOPHILS # (AUTO) 0.3 10^3/uL (0.0-0.3); EOSINOPHILS % (AUTO) 3 % (0-10); HEMATOCRIT 36 % (35-52); HEMOGLOBIN 12.2 G/DL (11.5-16.0); LYMPHOCYTES # (AUTO) 3.2 X 10^3 (1.0-4.0); LYMPHOCYTES % (AUTO) 37 % (12-44); MEAN CORPUSCULAR HEMOGLOBIN 29 PG (25-34); MEAN CORPUSCULAR HGB CONC 34 G/DL (32-36); MEAN CORPUSCULAR VOLUME 85 FL (80-99); MEAN PLATELET VOLUME 9.7 FL (7.4-10.4); MONOCYTES # (AUTO) 0.5 X 10^3 (0.0-1.0); MONOCYTES % (AUTO) 6 % (0-12); NEUTROPHILS # (AUTO) 4.7 X 10^3 (1.8-7.8); NEUTROPHILS % (AUTO) 54 % (42-75); PLATELET COUNT 278 10^3/uL (130-400); RED BLOOD COUNT 4.25 10^6/uL (4.35-5.85); RED CELL DISTRIBUTION WIDTH 14.2 % (10.0-14.5); WHITE BLOOD COUNT 8.7 10^3/uL (4.3-11.0)
[2017-12-18] MEDS: NS IV 1000 ML 1,000 ML IV SCH ×2 (03:11→04:23)
[2017-12-18 03:22] LABS: BILIRUBIN,URINE NEGATIVE (NEGATIVE); CLARITY,URINE SLIGHTLY CLOUDY; COLOR,URINE YELLOW; GLUCOSE, URINE (UA) NEGATIVE (NEGATIVE); KETONES,URINE NEGATIVE (NEGATIVE); LEUKOCYTE ESTERASE ,URINE 1+ (NEGATIVE); NITRITE,URINE NEGATIVE (NEGATIVE); PH,URINE 6 (5-9); PROTEIN,URINE NEGATIVE (NEGATIVE); UROBILINOGEN,URINE NORMAL (NORMAL)
[2017-12-18 03:26] LABS: ALANINE AMINOTRANSFERASE 17 U/L (0-55); ALKALINE PHOSPHATASE 52 U/L (40-136); AMYLASE 66 U/L (25-125); BILIRUBIN,TOTAL 0.2 MG/DL (0.1-1.0); BUN/CREATININE RATIO 15; CALCIUM 9.9 MG/DL (8.5-10.1); CARBON DIOXIDE 20 MMOL/L (21-32); CHLORIDE 106 MMOL/L (98-107); CREATININE SERUM 0.89 MG/DL (0.60-1.30); GFR ESTIMATED > 60; GLUCOSE 113 MG/DL (70-105); LIPASE 66 U/L (8-78); SODIUM 139 MMOL/L (135-145); TOTAL PROTEIN 7.4 GM/DL (6.4-8.2)
[2017-12-18 03:28] LABS: BACTERIA,URINE TRACE /HPF; WBC,URINE RARE /HPF
[2017-12-18 04:00] LABS: PROTHROMBIN TIME PATIENT 13.3 SEC (12.2-14.7)
[2017-12-18] MEDS ORDERED: PROM25TA14 PO (06:02)
[2017-12-18] MEDS ORDERED: ONDA4TAB11 PO (06:02)
[2017-12-18 06:11] VITALS: BP 128/81
--- NOTE | 2017-12-18 06:28 | Diagnostic Imaging Report ---
INDICATION: Nausea, vomiting, and diarrhea COMPARISON: 10/22/2017 TECHNIQUE: Single frontal radiograph of the chest dated 12/18/2017. FINDINGS: Significantly low lung volumes which accentuates the size of the heart and pulmonary vasculature. The lungs are otherwise clear of focal pulmonary opacity. No pleural effusion. No pneumothorax. No acute osseous abnormality. IMPRESSION: Low lung volumes which accentuates the cardiac silhouette and pulmonary vasculature. Dictated by: Dictated on workstation # [id number]
--- NOTE | 2017-12-18 06:58 | Diagnostic Imaging Report ---
PROCEDURE: CT abdomen and pelvis without contrast. TECHNIQUE: Multiple contiguous axial images were obtained through the abdomen and pelvis without the use of intravenous contrast. INDICATION: Nausea, vomiting, diarrhea COMPARISON: 11/11/2017 and 03/07/2017 FINDINGS: A 1.7 cm nodular density within the left lower lobe is again identified. This appears stable from prior examination dated February 2017 though new since 2012. Additional 0.8 cm pulmonary nodule within left lower lobe is stable.. No new focal pulmonary opacity. Cholecystectomy. The unenhanced liver and spleen are unremarkable. The adrenal glands are unremarkable. The right kidney and ureter are unremarkable. Left nephrectomy. No abnormal soft tissue mass within the left renal fossa. A 4.9 x 1.7 cm focal fluid collection with adjacent fat stranding is identified within the left anterolateral abdominal wall. This has decreased in size since the prior examination when it measured 7.7 x 3.4 cm. The urinary bladder is unremarkable. The uterus is not visualized, likely surgically absent. No bowel obstruction or pneumatosis. The appendix is not visualized. A loop of small bowel is present which extends towards the left anterior abdominal wall and the focal fluid collection within the left anterior abdominal wall. No acute osseous abnormality. IMPRESSION: Focal fluid collection within the left anterior abdominal wall having decreased in size since the prior examination. Given the adjacent edema and inflammation, this could relate to a persistent abscess. Persistent seroma or hematoma additional considerations though felt less likely. A loop of small bowel courses in close proximity to this fluid collection, so an underlying fistula could be considered. Left lower lobe pulmonary nodules. These appear essentially stable from prior examination though are not definitely seen in 2013. The possibility of metastatic disease should be considered. Therefore, short-term followup is recommended. Additional postsurgical and chronic findings as above. Dictated by: Dictated on workstation # [id number]
== END 2017-12-18 06:11 | disposition home or self-care (01) ==
LOC: EDUNIT# 01:22 → ER 01:24
DX: A04.72 Enterocolitis due to Clostridium difficile, not specified as recurrent (principal); E86.0 Dehydration; R11.2 Nausea with vomiting, unspecified; R10.13 Epigastric pain; R18.8 Other ascites; F41.9 Anxiety disorder, unspecified; F32.9 Major depressive disorder, single episode, unspecified; G43.909 Migraine, unspecified, not intractable, without status migrainosus; G25.81 Restless legs syndrome; J45.909 Unspecified asthma, uncomplicated; Z90.89 Acquired absence of other organs; Z90.49 Acquired absence of other specified parts of digestive tract; Z90.710 Acquired absence of both cervix and uterus; Z90.5 Acquired absence of kidney; Z85.528 Personal history of other malignant neoplasm of kidney; Z88.0 Allergy status to penicillin; Z88.1 Allergy status to other antibiotic agents
CPT/HCPCS: 36415; 71045; 74176; 80053; 81000; 82150; 83605; 83690; 85025; 85610; 85730; 87040; 87077; 87186; 96361; 96374; 96375

== ENCOUNTER 2017-12-27 08:05 | Outpatient (RCR) | payer MEDICARE, MEDICAID ==
--- NOTE | 2017-12-25 15:17 | Diagnostic Imaging Report ---
INDICATION: PICC line placement. TIME OF EXAMINATION: 2:50 PM. COMPARISON: 12/18/2017. FINDINGS: A left upper extremity PICC line has been placed. The tip appears to be near the SVC/right atrium. This could likely be safely pulled back 3 cm. The lungs are clear. No pneumothorax is seen. IMPRESSION: PICC line placement, as described. Dictated by: Dictated on workstation # [id number]
[2017-12-25] MEDS: NS IV 1000 ML 1,000 ML IV SCH (15:40)
[2017-12-25] MEDS: ONDANSETRON 4 MG/2 ML (SDV) Z0FRAN IV PRN (15:40)
[2017-12-25 15:47] VITALS: BP 112/86
[2017-12-25 16:13] VITALS: BP 112/86
[2017-12-25] MEDS: PROMETHAZINE INJ 25 MG/ML (PHENERGAN) AMP IV PRN (16:41)
[2017-12-25 17:30] VITALS: BP 111/95
[2017-12-25] MEDS: LINEZOLID IVPB 300 ML IV SCH (17:58)
[2017-12-25 19:00] VITALS: BP 111/95
[2017-12-25 19:22] VITALS: BP 111/95
[2017-12-25 19:23] VITALS: BP 111/95
[2017-12-26] MEDS: NS IV 1000 ML 1,000 ML IV SCH (08:38)
[2017-12-26] MEDS: LINEZOLID IVPB 300 ML IV SCH ×2 (08:38→21:51)
[2017-12-26] MEDS: ONDANSETRON 4 MG/2 ML (SDV) Z0FRAN IV PRN (08:38)
[2017-12-26] MEDS: PROMETHAZINE INJ 25 MG/ML (PHENERGAN) AMP IV PRN (08:43)
[2017-12-26 08:45] VITALS: BP 118/67
[2017-12-26 21:00] VITALS: BP 126/72
[2017-12-26 22:55] VITALS: BP 126/72
[~2017-12-27] VITALS: Ht 157.5 cm; Wt 117.9 kg
[2017-12-27 08:05] VITALS: BP 117/72
[~2017-12-27 08:05] MED LIST changes: -CHOL200014 PO; +CHOL200085 PO; +HYDROcodone/APAP 5 MG/325 MG (LORTAB) TAB ONE; +HYDROcodone/APAP 5 MG/325 MG (LORTAB) TAB PO ONE; +ONDA4TAB11 PO; -ROPI4TAB3 PO; +ROPI4TAB5 PO; +VANCOMYCIN 2000 MG/NS 500 ML IVPB IV SCH; +diphenhydrAMINE 50 MG/ML INJ (BENADRYL) IVP PRN; +diphenhydrAMINE 50 MG/ML INJ (BENADRYL) ONE
[2017-12-27] MEDS: LINEZOLID IVPB 300 ML IV SCH (08:21)
[2017-12-27] MEDS: NS IV 1000 ML 1,000 ML IV SCH (08:21)
[2017-12-27] MEDS: ONDANSETRON 4 MG/2 ML (SDV) Z0FRAN IV PRN (08:49)
[2017-12-27] MEDS: PROMETHAZINE INJ 25 MG/ML (PHENERGAN) AMP IV PRN (09:17)
[2017-12-27] MEDS ORDERED: TROUGH ORDER-PHARMACY XX NR (13:30)
[2017-12-27] MEDS ORDERED: PROM25TA14 PO (14:20)
[2017-12-27] MEDS ORDERED: HYDR30CR95 TOP (14:20)
[2017-12-27] MEDS ORDERED: [UNRECOGNIZED DRUG - CODE] PO (14:28)
[2018-02-04] MEDS ORDERED: OXYC1TAB87 PO (09:57)
== END 2018-01-14 | disposition home or self-care (01) ==
LOC: SDC 08:05
PROVIDERS: ATTEND Surgery
DX: E86.0 Dehydration (principal); B95.2 Enterococcus as the cause of diseases classified elsewhere
CPT/HCPCS: 36569; 71045; 76937; 96361; 96365; 96368; 96374; 96375

== ENCOUNTER 2017-12-27 09:56 | Inpatient (IN) | payer MEDICARE, MEDICAID ==
[~2017-12-27] VITALS: Ht 157.5 cm; Wt 124.8 kg
[~2017-12-27 09:56] MED LIST changes: +CHOL200014 PO; -CHOL200085 PO; -HYDROcodone/APAP 5 MG/325 MG (LORTAB) TAB ONE; -HYDROcodone/APAP 5 MG/325 MG (LORTAB) TAB PO ONE; +ROPI4TAB3 PO; -ROPI4TAB5 PO; -VANCOMYCIN 2000 MG/NS 500 ML IVPB IV SCH; -diphenhydrAMINE 50 MG/ML INJ (BENADRYL) IVP PRN; -diphenhydrAMINE 50 MG/ML INJ (BENADRYL) ONE
--- OUTSIDE RECORDS SUMMARY | 2017-12-27 10:03 | XMS REPORT | Encounter Summary ---
Author Author [facility] Organization [facility] Address Unknown Phone Unavailable Care Team Providers Care Supervisor Beet End Name Role Phone Michael Sutton MD Unavailable Unavailable Mary Whittington MD PCP Jessica Valera Unavailable Maggie Puente Unavailable Unavailable Mary Telles APRN Unavailable Bam Ritter MD Unavailable Radha Bo LPN Unavailable Unavailable Jose Sanchez MD Unavailable Encounter Details Date Type Department Care Team Description 12/09/2017 Procedure Pass [facility] Exam [address] [place] [address] Social History Tobacco Use Types Packs/Day Years [...]
--- OUTSIDE RECORDS SUMMARY | 2017-12-27 10:03 | XMS REPORT | Encounter Summary ---
Author Author [facility] Organization [facility] Address Unknown Phone Unavailable Care Team Providers Care Teaching Specialists Name Role Phone Michael Sutton MD Unavailable Unavailable Mary Whittington MD PCP Jessica Valera Unavailable Maggie Puente Unavailable Unavailable Mary Telles APRN Unavailable Bam Ritter MD Unavailable Radha Bo LPN Unavailable Unavailable Jose Sanchez MD Unavailable Reason for Visit * Reason Comments Medication Follow-up Encounter Details Date Type Department Care Team Description 12/17/2017 Telephone [facility] Jessica Vaelra ARNP Medication Follow-up Physicians [address] Ortho and Medical [place] [address] [place] [address] [address] [facility] [phone] [place] [address] Social History Tobacco Use Types [...] Telephone Encounter - Arleen Leone RN - 12/25/2017 10:28 AM CDT Patient updates Dr. Lynch, local surgeon has ordered "port" placement today for IV antibiotics and fluids daily x 2 weeks as states has c-diff and now "staph" in blood. Still with diarrhea and vomiting and states Dr. Lynch is not recommending admission. Informs hernia is" tunneled" and mesh is with infection but unable to have surgery due to infection at this time. Will update Jessica Valera NP and Dr. Nunez regarding patient's call back to our office today. * Telephone Encounter - Radha Bo LPN - 12/24/2017 1:29 PM CDT Attempted to contact pt. LVM to return call. * Telephone Encounter - Jessica Valera ARNP - 12/17/2017 12:01 PM CDT Please call and check on patient next week to make sure her diarrhea is resolving and she is tolerating the Flagyl prescribed by outside provider. * Telephone Encounter - Radha Bo LPN - 12/17/2017 10:36 AM CDT Spoke to pt. Relayed results; pt verbalized understanding and states she is taking an abx however thought it was Clindamycin not Vanco. States she has been feeling dehydrated and has just checked into her PCPs office to receive fluids. Continues to c/o abd cramping and diarrhea. Spoke w/ Pao at [facility] who states pt has [...]
--- OUTSIDE RECORDS SUMMARY | 2017-12-27 10:03 | XMS REPORT | Encounter Summary ---
Author Author [facility] Organization [facility] Address Unknown Phone Unavailable Care Team Providers Care Mechanical Striper Name Role Phone Michael Sutton MD Unavailable Unavailable Mary Whittington MD PCP Jessica Valera Unavailable Maggie Puente Unavailable Unavailable Mary Telles APRN Unavailable Bam Ritter MD Unavailable Radha Bo LPN Unavailable Unavailable Jose Sanchez MD Unavailable Encounter Details Date Type Department Care Team Description 12/09/2017 Procedure Pass [facility] Exam [address] [place] [address] Social History Tobacco Use Types Packs/Day Years [...]
--- OUTSIDE RECORDS SUMMARY | 2017-12-27 10:03 | XMS REPORT | Encounter Summary ---
Author Author [facility] Organization [facility] Address Unknown Phone Unavailable Care Team Providers Care Senior Executive Assistant Name Role Phone Michael Sutton MD Unavailable Unavailable Mary Whittington MD PCP UtJessica weaver Unavailable Maggie Puente Unavailable Unavailable Mary Telles APRN Unavailable Bam Ritter MD Unavailable Radha Bo LPN Unavailable Unavailable Jose Sanchez MD Unavailable Encounter Details Date Type Department Care Team Description 12/16/2017 Orders Only [facility] Jessica Valera ARNP Diarrhea, unspecified Physicians [address] type Ortho and Medical [place] [address] [place] [address] [phone] [place] [address] Social History Tobacco Use Types [...]
--- OUTSIDE RECORDS SUMMARY | 2017-12-27 10:03 | XMS REPORT | Encounter Summary ---
Author Author [facility] Organization [facility] Address Unknown Phone Unavailable Care Team Providers Care Team Coordinator Name Role Phone Michael Sutton MD Unavailable Unavailable Mary Whittington MD PCP UtJessica weaver Unavailable Maggie Puente Unavailable Unavailable Mary Telles APRN Unavailable Bam Ritter MD Unavailable Radha Bo LPN Unavailable Unavailable Jose Sanchez MD Unavailable Encounter Details Date Type Department Care Team Description 12/17/2017 Orders Only [facility] Jessica Valera ARNP Diarrhea, unspecified Physicians [address] type [facility] [address] [place] [address] [phone] [place] [address] Social History Tobacco Use Types [...] Performing Laboratory Stool - Feces MAIN LAB [address] [place] [id number] * GIARDIA SCREEN,FECAL (12/11/2017) Specimen Performing Laboratory Feces MAIN LAB [address] [place] [id number] * CRYPTOSPORIDUM,FECAL (12/11/2017) Specimen Performing Laboratory Stool - Feces [facility] LAB [address] [place] [id number] * CULTURE-FECES W/SENSITIVITY (12/11/2017) Specimen Performing Laboratory Stool - Feces [facility] [address] [place] [phone] in this encounter Visit Diagnoses Diagnosis Diarrhea, unspecified type
--- OUTSIDE RECORDS SUMMARY | 2017-12-27 10:03 | XMS REPORT | Clinical Summary ---
Author Author [facility] Organization [facility] Address Unknown Phone Unavailable Care Team Providers Care General Contractor Name Role Phone Michael Sutton MD Unavailable [...] in the Health Information Management department at [phone] for further assistance in locating additional records.[facility] Allergies Active Allergy Reactions Severity Noted Date [...] DAYS 18 mcg/mL injectionIndications: Medication monitoring encounter jihzid-aktyixde-ybofeiw Take 3 tablets by mouth 300 tablet [...] Overview: Added automatically from request for surgery [id number] 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 06/24/2013 Overview: S/P HOLLAND, BSO 11/27 Depression 06/24/2013 S/P cholecystectomy 06/24/2013 Overview: 2007 S/P appendectomy 06/24/2013 Overview: November 2012 Pancreatitis 10/23/2011 Encounters Date Type Specialty Care Team Description 12/25/2017 Telephone Oncology Abel Poe MD Medication Update 12/17/2017 Telephone Gastroenterology Jessica Valera ARNP Medication Follow-up 12/17/2017 Orders Only Gastroenterology Jessica Valera ARNP Diarrhea, unspecified type 12/16/2017 Orders Only Gastroenterology Jessica Valera ARNP Diarrhea, unspecified type 12/13/2017 Telephone Gastroenterology Randy Nunez MD Other 12/13/2017 Telephone Gastroenterology Jessica Valera ARNP C Diff ( Positive C Diff) 12/13/2017 Telephone Gastroenterology Jessica Valera ARNP Prior Authorization (Viokace ) 12/11/2017 Telephone Gastroenterology Jessica Valera ARNP Other (plan of care) 12/10/2017 Telephone Gastroenterology Jessica Valera ARNP Prior Authorization (Hydrocortisone rectal suppository 25mg ) 12/10/2017 Ancillary Radiology Outpatient, Radiologist Diagnosis unknown Orders 12/10/2017 Ancillary Radiology Outpatient, Radiologist Orders 12/10/2017 Ancillary Radiology Outpatient, Radiologist Diagnosis unknown Orders 12/09/2017 Office Visit Gastroenterology Jessica Valera ARNP Diarrhea, unspecified type (Primary Dx); Epigastric pain; Chronic pancreatitis, unspecified pancreatitis type (HCC); Nausea and vomiting, intractability of vomiting not specified, unspecified vomiting type 12/09/2017 Office Visit Oncology Abel Poe MD Left renal mass ( Primary Dx) 12/09/2017 Hospital Radiology Abel Poe MD Encounter 12/04/2017 Telephone Gastroenterology Randy Nunez MD [...] Performing Laboratory Stool - Feces MAIN LAB [address] [place] [address] * GIARDIA SCREEN,FECAL (12/11/2017) Specimen Performing Laboratory Feces MAIN LAB [address] [place] [address] * CULTURE-FECES W/SENSITIVITY (12/11/2017) Specimen Performing Laboratory Stool - Feces MAIN LAB [address] [place] [address] * CRYPTOSPORIDUM,FECAL (12/11/2017) Specimen Performing Laboratory Stool - Feces MAIN LAB [address] [place] [address] * BASIC METABOLIC PANEL (12/09/2017 11:38 AM) [...] Specimen Performing Laboratory Blood [facility] [address] [place] [address] * POC CREATININE, RAD (12/09/2017 9:55 AM) Component Value Ref Range Creatinine, POC 0.8 0.4 - 1.00 MG/DL Specimen Performing Laboratory [facility] MAIN [facility] [address] [place] [address] * CT ABDOMEN W CONTRAST (12/09/2017 9:55 [...]
--- OUTSIDE RECORDS SUMMARY | 2017-12-27 10:03 | XMS REPORT | Encounter Summary ---
Author Author [facility] Organization [facility] Address Unknown Phone Unavailable Care Team Providers Care Ticket Chopper Assembler Name Role Phone Michael Sutton MD Unavailable Unavailable Mary Whittington MD PCP Jessica Valera Unavailable Maggie Puente Unavailable Unavailable Mary Telles APRN Unavailable Bam Ritter MD Unavailable Radha Bo LPN Unavailable Unavailable Jose Sanchez MD Unavailable Reason for Visit * Reason Comments Medication Update Encounter Details Date Type Department Care Team Description 12/25/2017 Telephone [facility] Abel Poe MD Medication Update Cancer Center - Exam [address] [facility] [address] [place] [address] [place] [address] [phone] Social History Tobacco Use Types Packs/Day Years [...] Telephone Encounter - Jenn Bhatt, RN - 12/25/2017 9:56 AM CDT Pt called to report that she is getting a picc line put in today so that she can receive IV antibiotics. She stated that she has c-diff and staph infection from her abd mesh. Her doctors in [place] asked her to keep her physicians here in the loop. Will relay info to Dr. Poe. in this encounter Plan of Treatment Date Type Specialty Care Team Description 12/09/2017 Procedure Pass Oncology 12/09/2017 Procedure Pass Oncology as of this encounter Visit Diagnoses Not on filein this encounter
--- OUTSIDE RECORDS SUMMARY | 2017-12-27 10:04 | XMS REPORT | Encounter Summary ---
Author Author [facility] Organization [facility] Address Unknown Phone Unavailable Care Team Providers Care Job Recruiter Name Role Phone Michael Sutton MD Unavailable Unavailable Mary Whittington MD PCP Jessica Valera Unavailable Maggie Puente Unavailable Unavailable Mary Telles APRN Unavailable Bam Ritter MD Unavailable Radha Bo LPN Unavailable Unavailable Jose Sanchez MD Unavailable Reason for Visit * Reason Comments Other Encounter Details Date Type Department Care Team Description 12/13/2017 Telephone [facility] Randy Nunez MD Other Physicians - Internal [address] [facility] Medicine [address] [place] [address] [place] [address] Social History Tobacco Use Types [...]
--- OUTSIDE RECORDS SUMMARY | 2017-12-27 10:04 | XMS REPORT | Encounter Summary ---
Author Author [facility] Organization [facility] Address Unknown Phone Unavailable Care Team Providers Care Field Gauger Name Role Phone Michael Sutton MD Unavailable Unavailable Mary Whittington MD PCP Jessica Valera Unavailable Maggie Puente Unavailable Unavailable Mary Telles APRN Unavailable Bam Ritter MD Unavailable Radha Bo LPN Unavailable Unavailable Jose Sanchez MD Unavailable Encounter Details Date Type Department Care Team Description 12/10/2017 Ancillary Rad Outpatient, Radiologist Orders [address] [place] [address] Social History Tobacco Use Types [...]
--- OUTSIDE RECORDS SUMMARY | 2017-12-27 10:04 | XMS REPORT | Encounter Summary ---
Author Author [facility] Organization [facility] Address Unknown Phone Unavailable Care Team Providers Care Professor Of Exercise Science Name Role Phone Michael Sutton MD Unavailable Unavailable Mary Whittington MD PCP Jessica Valera Unavailable Maggie Puente Unavailable Unavailable Mary Telles APRN Unavailable Bam Ritter MD Unavailable Radha Bo INSPECTOR ASSEMBLY Unavailable Unavailable Jose Sanchez MD Unavailable Encounter Details Date Type Department Care Team Description 05/06/2017 Procedure Pass [facility] Radiology [address] [place] [address] Social History Tobacco Use Types Packs/Day Years [...]
--- OUTSIDE RECORDS SUMMARY | 2017-12-27 10:04 | XMS REPORT | Encounter Summary ---
Author Author [facility] Organization [facility] Address Unknown Phone Unavailable Care Team Providers Care Curer Acid Drum Name Role Phone Michael Sutton MD Unavailable Unavailable Mary Whittington MD PCP Jessica Valera Unavailable Maggie Puente Unavailable Unavailable Mary Telles APRN Unavailable aBm Ritter MD Unavailable Radha Bo OCC MED PHYSICIAN Unavailable Unavailable Jose Sanchez MD Unavailable Encounter Details Date Type Department Care Team Description 05/06/2017 Procedure Pass [facility] Radiology [address] [place] [address] Social History Tobacco Use Types [...]
--- OUTSIDE RECORDS SUMMARY | 2017-12-27 10:04 | XMS REPORT | Encounter Summary ---
Author Author [facility] Organization [facility] Address Unknown Phone Unavailable Care Team Providers Care Db2 Dba Name Role Phone Michael Sutton MD Unavailable Unavailable Mary Whittington MD PCP Jessica Valera Unavailable Maggie Puente Unavailable Unavailable Mary Telles REGISTERED PUBLIC SURVEYOR Unavailable Bam Ritter MD Unavailable Radha Bo [employer] Unavailable Unavailable Jose Sanchez MD Unavailable Reason for Visit * Reason Comments Abdominal pain Constipation Diarrhea Nausea Vomiting Encounter Details Date Type Department Care Team Description 12/09/2017 Office Visit [facility] Diarrhea, unspecified Physicians - Internal [address] type (Primary Dx); Medicine [place] [address] Epigastric pain; [address] [place] [address] Chronic pancreatitis, [place] [address] unspecified pancreatitis [phone] type (HCC); Nausea and vomiting, intractability of [...] if you have any questions or concerns. [phone]. in this encounter Progress Notes * Jessica [...] has been to cancer Center treatment in [place] regarding a left lung nodule. She is scheduled to go back there again early in December. She also had a repeat CT chest/abdomen CT today which shows a stable left lobe pulmonary or pleural nodule which is apparently unchanged from previous imaging. Dr. Poe/ nephrology who ordered a CT recommended repeat imaging in 6 months. She plans to discuss this recommendation with her [place] provider as well. Since I saw her [...] repeat imaging 6 months. Patient seen at [facility] after 08/2017 OV, has follow up [...] with her colonoscopy in 2017 done in [place]. Will treat internal hemorrhoids with Anusol HC suppository nightly for at least 7 days and treat external hemorrhoids with Preparation H [id number] 2-3 times a day. She is to [...] 5. She will follow-up at the [facility] in [place] early December as planned regarding the left [...] Laboratory Stool - Feces MAIN LAB [address] [place] [address] * GIARDIA SCREEN,FECAL (12/11/2017) Specimen Performing Laboratory Feces MAIN LAB [address] [place] [address] * CRYPTOSPORIDUM,FECAL (12/11/2017) Specimen Performing Laboratory Stool - Feces MAIN LAB [address] [place] [address] * CULTURE-FECES W/SENSITIVITY (12/11/2017) Specimen Performing Laboratory Stool - Feces MAIN LAB [address] [place] [address] * C DIFFICILE BY PCR (12/11/2017) Specimen Performing Laboratory Feces OTHER OUTSIDE LAB in this encounter Visit Diagnoses Diagnosis Diarrhea, unspecified type - Primary Epigastric pain Abdominal pain, epigastric Chronic pancreatitis, unspecified pancreatitis type (HCC) Nausea and vomiting, intractability of vomiting not specified, unspecified vomiting type
--- OUTSIDE RECORDS SUMMARY | 2017-12-27 10:04 | XMS REPORT | Encounter Summary ---
Author Author [facility] Organization [facility] Address Unknown Phone Unavailable Care Team Providers Care Civil Defense Director Name Role Phone Michael Sutton MD Unavailable Unavailable Mary Whittington MD PCP Jessica Valera Unavailable Maggie Puente Unavailable Unavailable Mary Telles APRN Unavailable Bam Ritter MD Unavailable Radha Bo LPN Unavailable Unavailable Jose Sanchez MD Unavailable Reason for Visit * Reason Comments Other plan of care Encounter Details Date Type Department Care Team Description 12/11/2017 Telephone [facility] Jessica Valera ARNP Other (plan of care) Physicians [address] Ortho and Medical [place] [address] [place] [address] [address] [phone] [place] [address] Social History Tobacco Use Types [...]
--- OUTSIDE RECORDS SUMMARY | 2017-12-27 10:04 | XMS REPORT | Encounter Summary ---
Author Author [facility] Organization [facility] Address Unknown Phone Unavailable Care Team Providers Care Bus Driver Supervisor Name Role Phone Michael Sutton MD Unavailable Unavailable Mary Whittington MD PCP Jessica Valera Unavailable Maggie Puente Unavailable Unavailable Mary Telles APRN Unavailable Bam Ritter MD Unavailable Radha Bo LPN Unavailable Unavailable Jose Sanchez MD Unavailable Reason for Visit * Reason Comments C Diff Positive C Diff Encounter Details Date Type Department Care Team Description 12/13/2017 Telephone [facility] Jessica Valera ARNP C Diff (Positive C Diff) Physicians [address] [facility] Medical [place] [address] [place] [address] [address] [facility], [facility] [place] [address] Social History Tobacco Use Types [...] and cleaning with a 1:10 bleach solution, VeriShow message sent with additional information. Pt to call PRN and w/ progress report after finishing abx. * Telephone Encounter - Radha Bo LPN - 12/13/2017 11:39 AM CDT Attempted to contact pt. LVM to return call. * Telephone Encounter - Jessica Valera ARNP - 12/13/2017 11:35 AM CDT Due to her significant N/V called Luke/Pharmacist at [facility] to see if Vanco 125 mg qid [...]
--- OUTSIDE RECORDS SUMMARY | 2017-12-27 10:04 | XMS REPORT | Encounter Summary ---
Author Author [facility] Organization [facility] Address Unknown Phone Unavailable Care Team Providers Care Alteration Worker Name Role Phone Michael Sutton MD Unavailable Unavailable Mary Whittington MD PCP Jessica Valera Unavailable Maggie Puente Unavailable Unavailable Mary Telles APRN Unavailable Bam Ritter MD Unavailable Radha Bo LPN Unavailable Unavailable Jose Sanchez MD Unavailable Encounter Details Date Type Department Care Team Description 12/10/2017 Ancillary Rad Outpatient, Radiologist Diagnosis unknown Orders [address] [place] [address] Social History Tobacco Use Types [...]
--- OUTSIDE RECORDS SUMMARY | 2017-12-27 10:04 | XMS REPORT | Encounter Summary ---
Author Author [facility] Organization [facility] Address Unknown Phone Unavailable Care Team Providers Care Peripheral Edp Equipment Operator Name Role Phone Michael Sutton MD Unavailable Unavailable Mary Whittington MD PCP Jessica Valera Unavailable Maggie Puente Unavailable Unavailable Mray Telles APRN Unavailable Bam Ritter MD Unavailable Camron Bo LPN Unavailable Unavailable Jose Sanchez MD Unavailable Reason for Visit * Reason Comments Prior Authorization Hydrocortisone rectal suppository 25mg Encounter Details Date Type Department Care Team Description 12/10/2017 Telephone [facility] Jessica Valera ARNP Prior Authorization Physicians - Internal [address] (Hydrocortisone rectal Medicine [place] [address] suppository 25mg ) [address] [place] [address] [place] [address] Social History Tobacco Use Types [...] stated she is seeing her PCP in [place], [place] today and will call back office after to visit to report. [facility] Camron Bo LPN 22 [...] via fax and it was denied. Per sales representative facility services alternative medication that is covered is Hydrocortisone [...]
--- OUTSIDE RECORDS SUMMARY | 2017-12-27 10:04 | XMS REPORT | Encounter Summary ---
Author Author [facility] Organization [facility] Address Unknown Phone Unavailable Care Team Providers Care Validation Consultant Name Role Phone Michael Sutton MD Unavailable Unavailable Mary Whittington MD PCP Jessica Valera Unavailable Maggie Puente Unavailable Unavailable Mray Telles TRAINING AND DEVELOPMENT MANAGER Unavailable Bam Ritter MD Unavailable Radha Bo LPN Unavailable Unavailable Jose Sanchez MD Unavailable Reason for Visit * Reason Comments Prior Authorization Viokace Encounter Details Date Type Department Care Team Description 12/13/2017 Telephone [facility] Jessica Valera ARNP Prior Authorization Physicians [address] (Viokace ) Ortho and Medical [place] [address] [place] [address] [address] [phone] [place] [address] Social History Tobacco Use Types [...] * Telephone Encounter - Senait Jarquin - 12/20/2017 3:41 PM CDT Contacted patient's insurance at phone number [phone] to check the status of PA on medication Viokace, PA has been approved with authorized dates of 12/11- with no end date given yet. * Telephone Encounter - Senait Jarquin - 12/13/2017 10:42 AM CDT Completed PA for medication Viokace diagnosis chronic pancreatitis through [employer] guillermo code [id number], waiting for approval or denial in this encounter Plan of Treatment Date Type Specialty Care Team Description 12/09/2017 Procedure Pass Oncology 12/09/2017 Procedure Pass Oncology as of this encounter Visit Diagnoses Not on filein this encounter
--- OUTSIDE RECORDS SUMMARY | 2017-12-27 10:04 | XMS REPORT | Encounter Summary ---
Author Author [facility] Organization [facility] Address Unknown Phone Unavailable Care Team Providers Care Legal Project Manager Name Role Phone Michael Sutton MD Unavailable Unavailable Mary Whittington MD PCP Jessica Valera Unavailable Maggie Puente Unavailable Unavailable Mary Telles BLUE PRINT CONTROL CLERK Unavailable Bam Ritter MD Unavailable Radha Bo FOREST BOTANY INSTRUCTOR Unavailable Unavailable Jose Sanchez MD Unavailable Reason for Referral * Radiology Services Status Reason Specialty Diagnoses / Referred By Referred To Procedures Contact Contact New Request Radiology Diagnoses Abel Poe MD Left renal mass [address] [place]ures [place] [address] ABDOMEN WO/W [place], [place] [address] * Radiology Services Status Reason Specialty Diagnoses / Referred By Referred To Procedures Contact Contact New Request Radiology Diagnoses Abel Poe MD Left renal mass [address] [place] [place] [address] CHEST [address], [place] [address] Reason for Visit * Reason Comments Heme/Onc Care Encounter Details Date Type Department Care Team Description 12/09/2017 Office Visit [facility] Abel Poe MD Left renal mass ([facility] Exam [address] Dx) [address] [place] [address] [place] [address] [phone] Social History Tobacco Use Types Packs/Day Years [...]
--- OUTSIDE RECORDS SUMMARY | 2017-12-27 10:04 | XMS REPORT | Encounter Summary ---
Author Author [facility] Organization [facility] Address Unknown Phone Unavailable Care Team Providers Care Dovetailer Name Role Phone Michael Sutton MD Unavailable Unavailable Mary Whittington MD PCP Jessica Valera Unavailable Maggie Puente Unavailable Unavailable Mary Telles CHARGE LPN Unavailable Bam Ritter MD Unavailable Radha Bo ELECTRONICS REPAIR TECHNICIAN Unavailable Unavailable Jose Sanchez MD Unavailable Reason for Referral * Radiology Services Status Reason Specialty Diagnoses / Referred By Referred To Procedures Contact Contact No Auth Needed Radiology Diagnoses Abel Poe MD [address] Left renal mass [address] roced[address] [place] [address] [place] [address] [place], [place] Phone: CONTRAST [phone] Phone: * Radiology Services Status Reason Specialty Diagnoses / Referred By Referred To Procedures Contact Contact No Auth Needed Radiology Diagnoses Abel Poe MD [address] Left renal mass [address] rocedures MS [facility] [place] [address] [address] [place], [place] Phone: [place]AST [phone] Phone: * Radiology Services Status Reason Specialty Diagnoses / Referred By Referred To Procedures Contact Contact No Auth Needed Radiology Diagnoses Abel Poe MD [address] Left renal mass [address] [place] [address] [place] [address] [place] [address] Phone: * Radiology Services Status Reason Specialty Diagnoses / Referred By Referred To Procedures Contact Contact No Auth Needed Radiology Diagnoses Abel Poe MD [address] Left renal mass [address] [place] [place] [address] [place] [address] [place] [address] Phone: Reason for Visit * Radiology Services Status Reason Specialty Diagnoses / Referred By Referred To Procedures Contact Contact No Auth Needed Radiology Diagnoses Abel Poe MD [address] Left renal mass [address] rocedures [place] [address] [place] [address] [address] [place], [place] Phone: CONTRAST [phone] Phone: Encounter Details Date Type Department Care Team Description 12/09/2017 Hospital [facility] Abel Poe MD Encounter [facility] Radiology [address] [place] [address] [place] [address] [phone] Social History Tobacco Use Types Packs/Day Years [...] Specimen Performing Laboratory [facility] MAIN LAB [address] [place] [address] * CT CHEST W CONTRAST (12/09/2017 9:55 [...] mL 50 mL, Intravenous, ONCE, 1 dose, Sat 11:00 CDT 12/09/17 at 1100, Intra-procedure (IR) in this encounter
--- OUTSIDE RECORDS SUMMARY | 2017-12-27 10:04 | XMS REPORT | Encounter Summary ---
Author Author [facility] Organization [facility] Address Unknown Phone Unavailable Care Team Providers Care Signaling Project Engineer Name Role Phone Michael Sutton MD Unavailable Unavailable Mary Whittington MD PCP Jessica Valera Unavailable Maggie Puente Unavailable Unavailable Mary Telles APRN Unavailable Bam Ritter MD Unavailable Radha Bo LPN Unavailable Unavailable Jose Sanchez MD Unavailable Encounter Details Date Type Department Care Team Description 12/10/2017 Ancillary Rad Outpatient, Radiologist Diagnosis unknown Orders [address] [place] [address] Social History Tobacco Use Types [...]
--- OUTSIDE RECORDS SUMMARY | 2017-12-27 10:05 | XMS REPORT | Encounter Summary ---
Author Author [facility] Organization [facility] Address Unknown Phone Unavailable Care Team Providers Care Bale Piler Name Role Phone Michael Sutton MD Unavailable Unavailable Mary Whittington MD PCP Jessica Valera Unavailable Maggie Puente Unavailable Unavailable Mary Telles APRN Unavailable Bam Ritter MD Unavailable Radha Bo LPN Unavailable Unavailable Jose Sanchez MD Unavailable Encounter Details Date Type Department Care Team Description 11/11/2017 Hospital [facility] Radiology [address] [facility] 2ND [place] [address] Social History Tobacco Use Types [...]
--- OUTSIDE RECORDS SUMMARY | 2017-12-27 10:05 | XMS REPORT | Encounter Summary ---
Author Author [facility] Organization [facility] Address Unknown Phone Unavailable Care Team Providers Care Hyperbaric Welder Diver Name Role Phone Michael Sutton MD Unavailable Unavailable Mary Whittington MD PCP Jessica Valera Unavailable Maggie Puente Unavailable Unavailable Mary Telles APRN Unavailable Bam Ritter MD Unavailable Radha Bo LPN Unavailable Unavailable Jose Sanchez MD Unavailable Encounter Details Date Type Department Care Team Description 11/12/2017 Hospital [facility] Radiology [address] [facility] 2ND [place] [address] Social History Tobacco Use Types [...]
--- OUTSIDE RECORDS SUMMARY | 2017-12-27 10:05 | XMS REPORT | Encounter Summary ---
Author Author [facility] Organization [facility] Address Unknown Phone Unavailable Care Team Providers Care Fruit Stuffer Name Role Phone Michael Sutton MD Unavailable Unavailable Mary Whittington MD PCP Jsesica Valera Unavailable Maggie Puente Unavailable Unavailable Mary Telles APRN Unavailable Bam Ritter MD Unavailable Radha Bo LPN Unavailable Unavailable Jose Sanchez MD Unavailable Reason for Visit * Reason Comments Results Encounter Details Date Type Department Care Team Description 10/31/2017 Telephone [facility] UROLOGY Abel Poe MD Results [address] [place] [address] Social History Tobacco Use Types [...]
--- OUTSIDE RECORDS SUMMARY | 2017-12-27 10:05 | XMS REPORT | Encounter Summary ---
Author Author [facility] Organization [facility] Address Unknown Phone Unavailable Care Team Providers Care Alarm Mechanism Adjuster Name Role Phone Michael Sutton MD Unavailable Unavailable Mary Whittington MD PCP Jessica Valera Unavailable Maggie Puente Unavailable Unavailable Mary Telles APRN Unavailable Bam Ritter MD Unavailable Radha Bo LPN Unavailable Unavailable Jose Sanchez MD Unavailable Encounter Details Date Type Department Care Team Description 10/01/2017 Hospital [facility] Radiology [address] [facility] [address] [place] [address] Social History Tobacco Use Types [...]
--- OUTSIDE RECORDS SUMMARY | 2017-12-27 10:05 | XMS REPORT | Encounter Summary ---
Author Author [facility] Organization [facility] Address Unknown Phone Unavailable Care Team Providers Care Computer Systems Integrator Name Role Phone Michael Sutton MD Unavailable Unavailable Mary Whittington MD PCP Jessica Valera Unavailable Maggie Puente Unavailable Unavailable Mary Telles TECHNICAL PLANNER Unavailable Bam Ritter MD Unavailable Radha Bo HEDDLER TIER Unavailable Unavailable Jose Sanchez MD Unavailable Reason for Visit * Radiology Services Status Reason Specialty Diagnoses / Referred By Referred To Procedures Contact Contact No Auth Needed Radiology Diagnoses Abel Poe MD Ww Ct Left renal mass [address] [place] [address] [place] [address] CONTRAST [address] Phone: Encounter Details Date Type Department Care Team Description 11/08/2017 Hospital [facility] Abel Poe MD Canceled (Other) Encounter [facility] [address] [place] [address] [place] [address] [place] [address] [phone] Social History Tobacco Use Types Packs/Day Years [...] this RN asking the patient to call [facility] nurse's desk to acknowledge the appointment date and time , NPO requirements, and other applicable instructions related to the imaging appointment. in this encounter Plan of Treatment Date Type Specialty Care Team Description 12/09/2017 Procedure Pass Oncology 12/09/2017 Procedure Pass Oncology as of this encounter Visit Diagnoses Not on filein this encounter
--- OUTSIDE RECORDS SUMMARY | 2017-12-27 10:05 | XMS REPORT | Encounter Summary ---
Author Author [facility] Organization [facility] Address Unknown Phone Unavailable Care Team Providers Care It Audit Manager Name Role Phone Michael Sutton MD Unavailable Unavailable Mary Whittington MD PCP Jessica Valera Unavailable Maggie Puente Unavailable Unavailable Mary Telles APRN Unavailable Bam Ritter MD Unavailable Radha Bo LPN Unavailable Unavailable Jose Sanchez MD Unavailable Reason for Visit * Reason Comments Medication Refill Encounter Details Date Type Department Care Team Description 10/01/2017 Refill [facility] Randy Nunez MD Medication monitoring Physicians - Internal [address] [place] [address] encounter Medicine [place] [address] [place] [address] [place] [address] Social History Tobacco Use Types [...]
--- OUTSIDE RECORDS SUMMARY | 2017-12-27 10:05 | XMS REPORT | Encounter Summary ---
Author Author [facility] Organization [facility] Address Unknown Phone Unavailable Care Team Providers Care Blasting Cap Assembler Name Role Phone Michael Sutton MD Unavailable Unavailable Mary Whittington MD PCP Jessica Valera Unavailable Maggie Puente Unavailable Unavailable Mary Telles APRN Unavailable Bam Ritter MD Unavailable Radha Bo LPN Unavailable Unavailable Jose Sanchez MD Unavailable Encounter Details Date Type Department Care Team Description 10/22/2017 Hospital [facility] Radiology [address] [place] [address] Social History Tobacco Use Types [...]
--- OUTSIDE RECORDS SUMMARY | 2017-12-27 10:05 | XMS REPORT | Encounter Summary ---
Author Author [facility] Organization [facility] Address Unknown Phone Unavailable Care Team Providers Care Hollow Handle Knife Assembler Name Role Phone Michael Sutton MD Unavailable Unavailable Mary hWittington MD PCP Jessica Valera Unavailable Maggie Puente Unavailable Unavailable Mary Telles APRN Unavailable Bam Ritter MD Unavailable Radha Bo LPN Unavailable Unavailable Jose Sanchez MD Unavailable Reason for Visit * Reason Comments Other Encounter Details Date Type Department Care Team Description 12/04/2017 Telephone [facility] Randy Nunez MD Other Physicians - Internal [address] [facility] Medicine [place] [address] [place] [address] [place] [address] Social History Tobacco Use Types [...]
--- OUTSIDE RECORDS SUMMARY | 2017-12-27 10:06 | XMS REPORT ---
Author Author AMY MARTINS [facility] Address [address] [place] [address] Care Team Providers Care Cut Out Operator Name Role Phone LURDES MARTINSA Unavailable PROBLEMS Type Condition ICD9-CM Code EAT17-VK Code Onset Dates Condition Status SNOMED Code Problem Asthma J45.909 Active 847281553 Problem Atelectasis J98.11 Active 15997960 Problem Polydipsia R63.1 Active 86184542 Problem Chronic fatigue R53.82 Active 89979354 Problem Moderate episode of recurrent major depressive disorder F33.1 Active 695932239 Problem Generalized social phobia F40.11 Active 82905395 Problem Trichotillomania F63.3 Active 68420406 Problem Restless leg syndrome G25.81 Active 69464281 Problem Chronic post-traumatic stress disorder (PTSD) F43.12 Active 109575818 Problem History of renal cell carcinoma Z85.528 Active 876439753 Problem Nodule of left lung R91.1 Active 058958105 Problem Chronic tension-type headache, intractable G44.221 Active 396418904 Problem Hyperlipidemia, mixed E78.2 Active 521479820 Problem Hirsuties L68.0 Active 278724554 Problem Morbid (severe) obesity due to excess calories E66.01 Active 374765287 Problem FH: polycystic ovary Z84.2 Active 966531263 Problem Chronic pancreatitis K86.1 Active 920925107 ALLERGIES No Information ENCOUNTERS Encounter Location Date Diagnosis [facility] [address] [facility] [id number] [address] Feb, [facility] [address] [address] Dec, [facility] [id number] [address] 4195 Dec, [facility] [id number] [place] [address] 29959- 2706 Dec, [facility] [id number] [place] [address] 50160- 7503 Dec, [facility] [id number] [place] [address] 28251- 7144 Dec, [facility] [id number] [place] [address] 91331- 0025 Dec, [facility] [id number] [place] [address] 54568- 0796 Dec, Clostridium difficile colitis A04.72 ; Intractable vomiting with nausea, unspecified vomiting type R11.2 and BMI 45.0-49.9, adult Z68.42 [facility] [id number] [place] [address] 60837- 0556 Dec, [facility] [id number] [place] [address] 75391- 2933 Nov, [facility] [id number] [place] [address] 63175- 8903 Nov, [facility] [id number] [place] [address] 13619- 8941 Nov, [facility] [id number] [place] [address] 40132- 7176 Nov, [facility] [id number] [place] [address] 10425 -4860 Nov, [facility] [id number] [place] [address] 20272- 4850 Nov, Hyperlipidemia, mixed E78.2 [facility] [id number] [place] [address] 78132 -4763 Nov, Acute suppurative otitis media of right ear without spontaneous rupture of tympanic membrane, recurrence not specified H66.001 and BMI 45.0-49.9, adult Z68.42 [facility] [address] [place] [address] 6005 Nov, Hyperlipidemia, mixed E78.2 [place] [id number] [place] [address] 70158- 6401 Nov, [place] [id number] [place] [address] 68325- 3776 Nov, [place] [id number] [place] [address] 62060- 7432 Nov, Nodule of left lung R91.1 [place] [address] [place] [address] 42594- 0811 Nov, Medicare annual wellness visit, initial Z00.00 [...] adult Z68.42 and Encounter for immunization Z23 [place] [id number] [place] [address] 74095- 9356 October, [place] [id number] [place] [address] 41499- 1483 October, Nodule of left lung R91.1 [place] [id number] [place] [address] 00391- 8015 October, Nodule of left lung R91.1 [place] [id number] [place] [address] 70338- 6800 October, Recurrent major depressive disorder, in partial remission F33.41 ; Restless leg syndrome G25.81 ; Generalized social phobia F40.11 ; Chronic post-traumatic stress disorder (PTSD) F43.12 ; BMI 45.0-49.9, adult Z68.42 and Trichotillomania F63.3 [facility] [id number] [place] [address] 69378- 3403 October, [facility] [id number] [place] [address] 70127- 8213 Sep, Chronic fatigue R53.82 and BMI 45.0-49.9, adult Z68.42 [place] [address] 73108- 9049 Aug, [facility] [id number] [place] [address] 58112- 6850 Jul, Restless leg syndrome G25.81 and B12 deficiency E53.8 [place] [address] 57019- 2605 Jul, [place] [address] 92912- 8925 Jul, [facility] [id number] [place] [address] 84441- 0177 Jun, [facility] [id number] [place] [address] 73531- 0648 Jun, Fatigue, unspecified type R53.83 ; History of renal cell carcinoma Z85.528 ; Chronic pancreatitis K86.1 ; Restless leg syndrome G25.81 ; Dark urine R82.99 and BMI 45.0-49.9, adult Z68.42 [place] [id number] [place] [address] 75652- 3125 Jun, [facility] [id number] [place] [address] 80678- 5739 Jun, [facility] [id number] [place] [address] 58532- 6140 Jun, [facility] [id number] [place] [address] 53780- 6223 Jun, [facility] [id number] [place] [address] 02854- 0026 May, Chronic post-traumatic stress disorder (PTSD) F43.12 ; Moderate episode of recurrent major depressive disorder F33.1 ; Trichotillomania F63.3 and Generalized social phobia F40.11 [place] [address] [address] 3597 May, [place] [address] [place] [address] 69093- 5049 May, Chronic post-traumatic stress disorder (PTSD) F43.12 ; Moderate episode of recurrent major depressive disorder F33.1 ; Trichotillomania F63.3 and Generalized social phobia F40.11 [place] [address] [place] [address] 67937- 9673 May, Hyperlipidemia, mixed E78.2 ; Morbid (severe) obesity due to excess calories E66.01 ; Chronic post-traumatic stress disorder (PTSD) F43.12 ; Moderate episode of recurrent major depressive disorder F33.1 ; Trichotillomania F63.3 and Generalized social phobia F40.11 [place] [address] [address]- 2450 Apr, [place] [address] [place] [address] 72225- 2258 Apr, Hyperlipidemia, mixed E78.2 ; Morbid (severe) obesity due to excess calories E66.01 ; Chronic post-traumatic stress disorder (PTSD) F43.12 ; Moderate episode of recurrent major depressive disorder F33.1 ; Trichotillomania F63.3 and Generalized social phobia F40.11 [place] [address] [address]- 9519 Apr, Trichotillomania F63.3 ; Generalized social phobia F40.11 ; Chronic post-traumatic stress disorder (PTSD) F43.12 and Moderate episode of recurrent major depressive disorder F33.1 [place] [address] [place] [address] 66821- 3971 Apr, [facility] [id number] [place] [address] 49507- 4124 Apr, [facility] [id number] [place] [address] 08891- 5269 Mar, Moderate episode of recurrent major depressive disorder F33.1 ; Trichotillomania F63.3 ; Chronic post-traumatic stress disorder (PTSD) F43.12 ; Generalized social phobia F40.11 and Restless leg syndrome G25.81 [facility] [id number] [place] [address] 85254- 9187 Mar, [facility] [address] 39344- 1157 Mar, [place] [id number] [place] [address] 52497- 2947 Feb, Left kidney mass N28.[address] 65018- 0507 Jan, [facility] [id number] [place] [address] 02067- 7275 Dec, Polydipsia R63.1 ; Chronic pancreatitis K86.1 and Fatigue, unspecified type R53.83 [place] [id number] [place] [address] 73389- 8166 Nov, [facility] [id number] [place] [address] 58381- 4789 Nov, [place] [id number] [place] [address] 29784- 7615 Nov, Headache around the eyes R51 [address] 48446- 7523 Nov, [place] [id number] [place] [address] 73547- 0275 October, STD exposure Z20.[address] 68335- 9122 October, STD exposure Z20.2 [place] [id number] [place] [address] 62928- 7512 October, Chronic post-traumatic stress disorder (PTSD) F43.12 ; Generalized social phobia F40.11 ; Trichotillomania F63.3 and Restless leg syndrome G25.81 [place] [address] 11667- 5312 October, [place] [id number] [place] [address] 34401- 6721 Sep, [place] [address] 71683- 2023 Aug, [place] [id number] [place] [address] 58120- 5681 Aug, [place] [address] 97403- 6030 Aug, Neck mass R22.1 [place] [id number] [place] [address] 88713- 4146 Aug, Atelectasis J98.11 [place] [id number] [place] [address] 94508- 2229 28 Jul, 2016 Hyperlipidemia, mixed E78.2 ; Atypical pneumonia J18.9 and Neck mass R22.1 [place] [id number] [place] [address] 38276- 0584 15 Jul, 2016 Hemoptysis R04.2 [place] [id number] [place] [address] 21662- 1295 Jul, Acute non-recurrent pansinusitis J01.40 ; Hemoptysis R04.2 ; Polydipsia R63.1 and Malaise R53.81 [facility] [address] [place] [address] 28350 -4027 May, Other viral agents as the cause of diseases classified elsewhere B97.89 and Acute upper respiratory infection, unspecified J06.9 [facility] [place] [address] [address]6798 Mar, Nausea R11.0 [facility] [place] [address] [place] [address] 73346 -1255 28 Dec, 2015 Hives L50.9 [place] [id number] [place] [address] 10059- 3764 14 Dec, 2015 [facility] [place] [id number] [place] [address] 71066 -0506 10 Dec, 2015 Cutaneous abscess of limb, unspecified L02.419 ; Cellulitis of unspecified part of limb L03.119 ; Encounter for incision and drainage procedure Z01.89 and Encounter for recheck of abscess following incision and drainage Z09 [facility] [address] [place] [address] 09064 -8096 Dec, Abscess of leg, right L02.415 [place] [id number] [place] [address] 29652- 9601 Dec, Cellulitis of unspecified part of limb L03.119 and Cutaneous abscess of limb, unspecified L02.419 [place] [address] [place] [address] 98093- 2906 Dec, [place] [address] [place] [address] 10580- 3254 Dec, [facility] [place] [address] [address] -6820 Aug, [place] [id number] [place] [address] 38723- 5261 Aug, [facility] [place] [address] [place] [address] 75614 -6408 04 Jul, 2015 Pain in unspecified wrist M25.539 and Back pain, thoracic M54.6 [facility] [id number] [place] [address] 58364 -8192 13 Jun, 2015 Strain of right wrist, initial encounter S66.911A [place] [address] 90100- 3414 11 Jun, 2015 Chronic pancreatitis, unspecified pancreatitis type K86.1 ; Hirsuties L68.0 ; Morbid (severe) obesity due to excess calories E66.01 ; Chronic pancreatitis K86.1 and Asthma J45.909 [place] [id number] [place] [address] 52077- 4281 14 May, 2015 [place] [address] 44623- 5871 May, Hyperlipidemia, mixed E78.2 and Muscle spasm of back M62.830 [place] [id number] [place] [address] 06796- 6630 Apr, [place] [address] 96940- 5494 Apr, Torticollis M43.6 [place] [id number] [place] [address] 56820- 4854 Apr, Right-sided thoracic back pain M54.6 [place] [id number] [place] [address] 90029- 4321 Mar, Rash R21 [place] [id number] [place] [address] 83596- 0650 Mar, [place] [id number] [place] [address] 53858- 2221 Jan, [place] [id number] [place] [address] 85791- 4871 Dec, [place] [id number] [place] [address] 70801- 9699 Dec, Urinary frequency 788.41 and Nocturia more than twice per night 788.43 [place] [address] [address]- 9650 Nov, [facility] [address] [address]- 8148 Nov, [facility] [address] [address]- 8864 Nov, Abdominal pain 789.00 [facility] [address] [place] [address] 95210- 6530 October, TDAP DX V06.1 [facility] [address] [address]- 9555 October, [facility] [address] [place] [address] 84238- 3649 October, Disturbance of skin sensation 782.0 ; Wrist pain, right 719.43 ; Hyperlipidemia 272.4 and Skin lesion of face 709.9 [facility] [address] [address]- 3346 Sep, [facility] [address] [address]- 1115 Sep, [facility] [address] [address]- 5871 Aug, [facility] [address] [address]- 5335 Aug, [facility] [address] [address]- 9748 Aug, [facility] [address] [address]- 1594 Aug, [facility] [address] [address]- 1170 Aug, [facility] [address] 1547 Aug, [facility] [address] [address]- 8619 14 Aug, 2014 [facility] [place] [facility] [address] [id number] [place] [address]- 7657 14 Aug, 2014 [facility] [place] [facility] [address] [id number] [place] [address]- 6659 Aug, [facility] [place] [facility] [address] [facility] [id number] [place] [address]- 6865 Aug, [facility] [place] [facility] [address] [id number] [place] [address]- 5632 Aug, [facility] [place] [facility] [address] [id number] [place] [address]- 3720 Aug, [facility] [place] [facility] [address] [facility] [id number] [place] [address]- 9234 Aug, [facility] [place] [facility] [address] [facility] [id number] [place] [address]- 6352 Aug, [facility] [place] [facility] [address] [facility] [id number] [place] [address]- 4053 Jul, [facility] [place] [facility] [address] [facility] [id number] [place] [address]- 8973 Jul, [facility] [place] [facility] [address] [facility] [id number] [place] [address]- 0306 Jul, [facility] [place] [facility] [address] [facility] [id number] [place] [address]- 9870 Jul, 2014 [facility] [place] [facility] [address] [facility] [id number] [address]- 6840 Jul, [facility] [place] [facility] [address] [id number] [place] [address]- 4120 Jul, [facility] [place] [facility] [address] [id number] [address]- 7673 Jun, [facility] [place] [facility] [address] [id number] [address]- 8106 Jun, [facility] [place] [facility] [address] [id number] [place] [address]- 0889 Jun, [facility] [place] [facility] [address] [id number] [place] [address]- 0411 Jun, [facility] [place] [facility] [address] [id number] [place] [address]- 3018 Jun, [facility] [place] [facility] [address] [id number] [place] [address]- 6083 Jun, [facility] [address] [id number] [place] [address]- 8338 Jun, [facility] [place] [facility] [address] [id number] [place] [address]- 6567 Jun, [facility] [address] [id number] [place] [address]- 3813 May, [facility] [address] [id number] [place] [address]- 8017 May, [facility] [place] [facility] [address] [id number] [place] [address]- 2473 May, [facility] [place] [facility] [address] [id number] [place] [address]- 6220 May, [facility] [place] [facility] [address] [id number] [place] [address]- 5794 15 May, 2014 [facility] [place] [facility] [address] [id number] [place] [address]- 9900 15 May, 2014 [facility] [place] [facility] [address] [id number] [place] [address]- 4459 May, [facility] [place] [facility] [address] [id number] [place] [address]- 4180 May, [facility] [place] [facility] [address] [id number] [place] 8893 09 May, 2014 [facility] [place] [facility] [address] [id number] [place] [address]- 3044 May, [facility] [place] [facility] [address] [id number] [place] [address]- 8625 May, [facility] [place] [facility] [address] [id number] [place] 6788 May, [facility] [place] [facility] [address] [id number] [place] [address]- 2803 Apr, [facility] [place] [facility] [address] [id number] [place] [address]- 5345 Apr, [facility] [place] [facility] [address] [id number] [place] [address]- 4324 Apr, [facility] [place] [facility] [address] [id number] [place] [address]- 1564 Apr, [facility] [place] [facility] [address] [id number] [place] [address]- 8104 Apr, [facility] [place] [facility] [address] [id number] [place] [address]- 1765 Apr, [facility] [place] [facility] [address] [id number] [place] [address]- 0262 Apr, [facility] [place] [facility] [address] [id number] [place] [address]- 5377 Apr, [facility] [place] [facility] [address] [id number] [address]- 6877 Apr, [facility] [place] [facility] [address] [id number] [address]- 9526 Apr, [facility] [place] [facility] [address] [id number] [place] [address]- 3505 Apr, [facility] [place] [facility] [address] [id number] [place] [address]- 0105 Apr, [facility] [place] [facility] [address] [id number] [place] [address]- 1296 14 Mar, 2014 [facility] [place] [facility] [address] [id number] [place] [address]- 2585 14 Mar, 2014 [facility] [place] [facility] [address] [id number] [place] [address]- 0310 Mar, [facility] [place] [facility] [address] [id number] [place] [address]- 7599 Mar, [facility] [place] [facility] [address] [id number] [place] [address]- 7281 Feb, [facility] [place] [facility] [address] [id number] [place] [address]- 5510 Feb, 2013 [facility] [place] [facility] [address] [id number] [place] [address]- 7072 Feb, [facility] [place] [facility] [address] [id number] [place] [address]- 0822 Feb, 2013 [facility] [place] [facility] [address] [id number] [place] [address]- 2107 Feb, [facility] [place] [facility] [address] [id number] [place] [address] Feb, [facility] [place] [facility] [address] [id number] [place] [address] Jan, [facility] [place] [facility] [address] [id number] [place] [address] Jan, [facility] [place] [facility] [address] [id number] [place] [address] Jan, [facility] [place] [facility] [address] [id number] [place] [address] Jan, [facility] [place] [facility] [address] [id number] [place] [address] Jan, [facility] [place] [facility] [address] [id number] [place] [address] Jan, [facility] [place] [facility] [address] [id number] [place] [address] Jan, [facility] [place] [facility] [address] [id number] [place] [address] Jan, [facility] [place] [facility] [address] [id number] [place] [address] Jan, [facility] [place] [facility] [address] [id number] [place] [address] Jan, [facility] [place] [facility] [address] [id number] [place] [address] Jan, [facility] [place] [facility] [address] [id number] [place] [address] Jan, [facility] [place] [facility] [address] [id number] [place] [address] Jan, [facility] [place] [facility] [address] [id number] [place] [address] Jan, [facility] [place] [facility] [address] [id number] [place] [address] Dec, [facility] [place] [facility] [address] [id number] [place] [address] Dec, [facility] [place] [facility] [address] [id number] [place] [address] Dec, [facility] [place] [facility] [address] [id number] [place] [address] Dec, [facility] [place] [facility] [address] [id number] [place] [address] Nov, [facility] [place] [facility] [address] [id number] [place] [address] Nov, [facility] [place] [facility] [address] [id number] [place] [address] Nov, [facility] [place] [facility] [address] [id number] [place] [address] Nov, [facility] [place] [facility] [address] [id number] [address] Nov, [facility] [address] [id number] [place] [address] October, [facility] [place] [facility] [address] [id number] [place] [address] October, [facility] [address] [id number] [place] [address] October, [facility] [place] [facility] [address] [id number] [place] [address] October, [facility] [address] [id number] [place] [address] October, [facility] [address] [id number] [place] [address] October, [facility] [address] [id number] [place] [address] October, [facility] [address] [id number] [place] [address] October, [facility] [address] [id number] [place] [address] October[facility] [facility] [address] [id number] [place] [address] October, [facility] [address] [id number] [place] [address] October, [facility] [place] [facility] [address] [id number] [place] [address] 34[address] October, [facility] [place] [facility] [address] [id number] [place] [address]184 October, [facility] [place] [facility] [address] [id number] [place] [address] 6[address] October, [facility] [place] [facility] [address] [id number] [place] [address]148 Sep, [facility] [place] [facility] [address] [id number] [place] [address] 17 Sep, 2013 [facility] [place] [facility] [address] [id number] [place] [address] 2072 Sep, [facility] [place] [facility] [address] [id number] [place] [address]- 0718 Sep, [facility] [place] [facility] [address] [id number] [place] [address] 8325 Sep, [facility] [place] [facility] [address] [id number] [place] [address] 9912 Sep, [facility] [place] [facility] [address] [id number] [place] [address] 8412 Sep, [facility] [place] [facility] [address] [id number] [place] [address] 9424 Sep, [facility] [place] [facility] [address] [id number] [place] [address] 4738 Sep, [facility] [place] [facility] [address] [id number] [place] [address]- 5956 Sep, [facility] [place] [facility] [address] [id number] [place] [address] 8259 Sep, [facility] [place] [facility] [address] [id number] [place] [address] 1983 Sep, [facility] [place] [facility] [address] [id number] [place] [address] 6197 Sep, [facility] [place] [facility] [address] [id number] [place] [address]- 9812 Sep, [facility] [place] [facility] [address] [id number] [place] [address]- 7837 Sep, [facility] [place] [facility] [address] [id number] [place] [address]- 2314 Aug, [facility] [place] [facility] [address] [id number] [place] [address]- 3511 Aug, [facility] [place] [facility] [address] [id number] [place] [address]- 9163 Aug, [facility] [place] [facility] [address] [id number] [place] [address]- 6494 Aug, [facility] [place] [facility] [address] [id number] [place] [address]- 7904 Jul, [facility] [place] [facility] [address] [id number] [place] [address]- 2353 Jul, [facility] [place] [facility] [address] [id number] [place] [address]- 7605 Jul, [facility] [place] [facility] [address] [id number] [place] [address]- 2085 Jul, [facility] [place] [facility] [address] [id number] [place] [address] 9147 Jun, [facility] [place] [facility] [address] [id number] [place] [address]- 5207 Jun, [facility] [place] [facility] [address] [id number] [place] [address]- 1247 Jun, [facility] [place] [facility] [address] [id number] [place] [address]- 9736 Jun, [facility] [place] [facility] [address] [id number] [place] [address]- 7845 Jun, [facility] [place] [facility] [address] [id number] [place] [address]- 3998 Jun, [facility] [place] [facility] [address] [id number] [place] [address]- 4846 Jun, [facility] [place] [facility] [address] [id number] [place] [address]- 8030 Jun, [facility] [place] [facility] [address] [id number] [place] [address]- 7334 May, [facility] [place] [facility] [address] [id number] [place] [address]- 7607 20 May, 2012 [facility] [address] [id number] [place] [address] 18 May, 2013 [facility] [address] [id number] [place] [address] 18 May, 2013 [facility] [address] [id number] [place] [address]- 3226 17 May, 2013 [facility] [address] [id number] [place] [address] 17 May, 2013 [facility] [address] [id number] [place] [address] 17 May, 2013 [facility] [address] [id number] [place] [address]- 2146 17 May, 2013 [facility] [address] [id number] [place] [address]- 9258 16 May, 2013 [facility] [address] [id number] [place] [address]- 7256 16 May, 2013 [facility] [address] [id number] [place] [address]- 2070 14 May, 2013 [facility] [address] [id number] [place] [address]- 8139 14 May, 2013 [facility] [address] [id number] [place] [address]- 3183 13 May, 2013 [facility] [address] [id number] [place] [address]- 5062 13 May, 2013 [facility] [address] [id number] [place] [address] 12 May, 2013 [facility] [address] [id number] [place] [address]- 3642 12 May, 2013 [facility] [address] [id number] [place] [address] 11 May, 2013 [facility] [address] [id number] [place] [address]- 7184 May, [facility] [address] [id number] [place] [address]- 8885 Apr, [facility] [address] [id number] [place] [address]- 3579 Apr, [facility] [address] [id number] [place] [address]- 2296 Apr, [facility] [address] [id number] [place] [address]- 3927 Apr, [facility] [address] [id number] [place] [address]- 9378 Aug, [facility] [address] [id number] [place] [address]- 5657 Aug, [facility] [address] [id number] [place] [address]- 3874 Aug, [facility] [address] [id number] [place] [address]- 7887 Aug, [facility] [address] [id number] [place] [address]- 3031 Jul, [facility] [address] [id number] [place] [address] 1840 Jun, [facility] [address] [id number] [address] 6090 Jun, [facility] [place] [facility] [address] [id number] [place] [address]- 3369 16 Jun, 2012 [facility] [place] [facility] [address] [id number] [address]- 9526 Jun, [facility] [place] [facility] [address] [id number] [address]- 8880 17 May, 2012 [facility] [place] [facility] [address] [id number] [address]- 7160 May, [facility] [place] [facility] [address] [id number] [place] [address]- 2404 May, [facility] [place] [facility] [address] [facility] [id number] [address]377 May, [facility] [place] [facility] [address] [facility] [id number] [place] [address]- 7420 May, [facility] [place] [facility] [address] [id number] [address]- 4441 May, [facility] [place] [facility] [address] [facility] [id number] [place] [address], [place] [address]- 3136 May, [facility] [place] [facility] [address] [facility] [id number] [place] [address]- 8324 Apr, [facility] [place] [facility] [id number] [address]- 0732 Apr, [facility] [place] [facility] [address] [facility] [id number] [address]- 4630 Apr, [facility] [place] [facility] [address]65[address] [address]- 7445 Apr, [facility] [place] [facility] [address] [facility] [id number] [place] [address]- 9626 Apr, [facility] [place] [facility] [address] [facility] [id number] [address]- 3184 Apr, [facility] [place] [facility] [address] [facility] [id number] [place] [address]- 3741 Apr, [facility] [place] [facility] [address] [facility] [id number] [place] [address]- 7031 Mar, [facility] [place] [facility] [address] [facility] [id number] [address]- 8151 Mar, [facility] [place] [facility] [address] [facility] [id number] [address]- 7817 Mar, [facility] [place] [facility] [address] [id number] [place] [address]- 0737 Mar, 2011 [facility] [place] [facility] [address] [id number] [place] [address]- 1291 Mar, 2011 [facility] [place] [facility] [address] [id number] [place] [address] 2546 Mar, 2011 [facility] [place] [facility] [address] [id number] [place] [address]- 5706 Mar, 2011 [facility] [place] [facility] [address] [id number] [place] [address]- 9000 Mar, [facility] [place] [facility] [address] [id number] [place] [address]- 1227 Mar, [facility] [place] [facility] [address] [id number] [place] [address]- 8101 Mar, [facility] [place] [facility] [address] [id number] [place] [address]- 4712 Mar, [facility] [place] [facility] [address] [id number] [place] [address]- 9796 Mar, [facility] [place] [facility] [address] [id number] [place] [address]- 6492 Feb, [facility] [place] [facility] [address] [id number] [place] [address]- 1949 Jan, [facility] [place] [facility] [address] [id number] [place] [address]- 0934 Jan, [facility] [place] [facility] [address] [id number] [place] [address]- 4891 Jan, [facility] [place] [facility] [address] [id number] [place] [address]- 7176 Jan, [facility] [place] [facility] [address] [id number] [place] [address]- 2546 Jan, [facility] [place] [facility] [address] [id number] [place] [address]- 7459 Dec, [facility] [place] [facility] [address] [id number] [place] [address]- 2443 Dec, [facility] [place] [facility] [address] [id number] [place] [address]- 6577 Nov, [facility] [place] [facility] [address] [id number] [place] [address]- 2075 Nov, [facility] [place] [facility] [address] [id number] [place] [address]- 3828 Nov, [facility] [place] [facility] [address] [id number] [place] [address]- 7518 October, [facility] [place] [facility] [address] [id number] [place] [address]- 1180 October, [facility] [place] [facility] [address] [id number] [place] [address]- 0250 October, [facility] [place] [facility] [address] [id number] [place] [address]- 9907 October, [facility] [place] [facility] [address] [id number] [place] [address]- 4202 October, [facility] [place] [facility] [address] [id number] [place] [address]- 3852 October, [facility] [place] [facility] [address] [id number] [place] [address]- 4114 October, [facility] [place] [facility] [address] [id number] [place] [address]- 2821 Sep, [facility] [place] [facility] [address] [id number] [place] [address]- 7694 Sep, [facility] [place] [facility] [address] [id number] [place] [address]- 7123 Sep, [facility] [place] [facility] [address] [id number] [place] [address]- 8703 Sep, [facility] [place] [facility] [address] [id number] [place] [address]- 6002 24 Sep, 2011 [facility] [address] [id number] [place] [address]- 2686 19 Sep, 2011 [facility] [place] [facility] [address] [id number] [place] [address]- 5856 17 Sep, 2011 [facility] [place] [facility] [address] [id number] [place] [address]- 5216 16 Sep, 2011 [facility] [place] [facility] [address] [id number] [place] [address]- 4382 16 Sep, 2011 [facility] [place] [facility] [address] [id number] [place] [address]- 8657 14 Sep, 2011 [facility] [place] [facility] [address] [id number] [place] [address]- 0943 13 Sep, 2011 [facility] [address] [id number] [place] [address]- 1167 10 Sep, 2011 [facility] [place] [facility] [address] [id number] [place] [address]- 9075 09 Sep, 2011 [facility] [place] [facility] [address] [id number] [place] [address]- 5175 27 Aug, 2011 [facility] [place] [facility] [address] [id number] [place] [address]- 2730 12 Aug, 2011 [facility] [place] [facility] [address] [id number] [place] [address]- 1013 08 Aug, 2011 [facility] [place] [facility] [address] [id number] [place] [address]- 8078 06 Aug, 2011 [facility] [place] [facility] [address] [id number] [place] [address]- 6743 28 Jul, 2011 [facility] [place] [facility] [address] [id number] [place] [address]- 9619 22 Jul, 2011 [facility] [place] [facility] [address] [id number] [place] [address]- 8588 16 Jul, 2011 [facility] [place] [facility] [address] [id number] [place] [address]- 1107 15 Jul, 2011 [facility] [place] [facility] [address] [id number] [place] [address]- 2256 14 Jul, 2011 [facility] [place] [facility] [address] [id number] [place] [address]- 8367 10 Jul, 2011 [facility] [place] [facility] [address] [id number] [place] [address]- 3443 30 Jun, 2011 [facility] [address] [id number] [place] [address]- 0695 Jun, [facility] [place] [facility] [address] [id number] [place] [address]- 7397 Jun, [facility] [place] [facility] [address] [id number] [place] [address]- 5019 Jun, [facility] [address] [id number] [place] [address]- 2714 Jun, [facility] [place] [facility] [address] [id number] [place] [address]- 5062 May, [facility] [place] [facility] [address] [id number] [place] [address]- 7953 May, [facility] [place] [facility] [address] [id number] [place] [address]- 3476 May, [facility] [place] [facility] [address] [id number] [place] [address]- 1679 14 May, 2011 [facility] [place] [facility] [address] [id number] [place] [address]- 3852 12 May, 2011 [facility] [place] [facility] [address] [id number] [place] [address]- 9840 07 May, 2011 [facility] [place] [facility] [address] [id number] [place] 3183 05 May, 2011 [facility] [place] [facility] [address] [id number] [place] [address]- 2086 15 Apr, 2011 [facility] [place] [facility] [address] [id number] [place] [address]- 9811 15 Apr, 2011 [facility] [place] [facility] [address] [id number] [place] [address]- 1351 07 Apr, 2011 [facility] [place] [facility] [address] [id number] [place] [address]- 8095 Apr, [facility] [place] [facility] [address] [id number] [place] [address]- 7426 Apr, [facility] [place] [facility] [address] [id number] [place] [address]- 7142 Apr, [facility] [place] [facility] [address] [id number] [place] [address]- 7866 Mar, [facility] [place] [facility] [address] [id number] [place] [address]- 9388 Mar, [facility] [place] [facility] [address] [id number] [place] [address]- 1278 Mar, [facility] [place] [facility] [address] [id number] [place] [address]- 6076 Mar, [facility] [place] [facility] [address] [id number] [place] [address]- 2017 Jan, [facility] [place] [facility] [address] [id number] [place] [address]- 5661 Dec, [facility] [place] [facility] [address] [id number] [address]- 8693 Dec, [facility] [place] [facility] [address] [id number] [place] [address]- 8693 October, [facility] [place] [facility] [address] [id number] [place] [address]- 2429 20 Sep, 2010 [facility] [place] [facility] [address] [id number] [place] [address]- 0833 14 Sep, 2010 [facility] [place] [facility] [address] [id number] [place] [address]- 1316 17 Jul, 2010 [facility] [place] [facility] [address] [id number] [place] [address]- 1137 16 Jul, 2010 [facility] [place] [facility] [address] [id number] [place] [address]- 2090 31 May, 2010 [facility] [place] [facility] [address] [id number] [place] [address]- 5312 27 May, 2010 [facility] [place] [facility] [address] [id number] [place] [address]- 9157 08 May, 2010 [facility] [place] [facility] [address] [id number] [place] [address]- 2107 May, [facility] [place] [facility] [address] [id number] [place] [address]- 2855 Apr, [facility] [place] [facility] [address] [id number] [place] [address]- 6514 Apr, [facility] [place] [facility] [address] [id number] [place] [address]- 2238 Apr, [facility] [place] [facility] [address] [id number] [place] [address]- 7746 Apr, [facility] [place] [facility] [address] [id number] [place] [address]- 5329 Apr, [facility] [place] [facility] [address] [id number] [place] [address]- 6831 Mar, [facility] [place] [facility] [address] [id number] [place] [address]- 1104 14 Mar, 2010 [facility] [place] [facility] [address] [id number] [place] [address]- 0319 13 Mar, 2010 [facility] [place] [facility] [address] [id number] [place] [address]- 7889 12 Mar, 2010 [facility] [place] [facility] [address] [id number] [address]- 4636 Jan, [facility] [address]005[address] [address]77 Dec, [facility] [address] [address]600 Sep, [facility] [address] [address]123 May, [facility] [address] [facility] [id number] [place] 5172 May, [facility] [address]00565[address] 4907 May, [facility] [id number] [place] [address] 95[address]38- 2818 Apr, [facility] [id number] [place] [address]- 8127 Apr, [facility] [id number] [place] [address] 07908- 9682 Apr, [facility] [address] [address]- 9055 Apr, [facility] [id number] [address] Apr, [facility] [id number] [address] Mar, [facility] [id number] [address] Mar, [facility] [id number] [address] Jul, IMMUNIZATIONS No Known Immunizations SOCIAL HISTORY Never Assessed REASON FOR VISIT med refill PLAN OF CARE VITAL SIGNS MEDICATIONS Medication Instructions Dosage Frequency Start Date End Date Duration Status Prozac 40 mg Orally Once a day for depression 1 capsules Active RESULTS No Results PROCEDURES No Known [...] 08/2017 Surgical History nephrectomy 03/2017 Hospitalization History Cellulitis[facility] 12/20/15 Hospitalization History [facility]- Abd pain 03/07/2017 Hospitalization [facility]- Abd pain 03/14/2017 Hospitalization [facility]- No bowel movement, rash 04/13/2017 Hospitalization History [facility]- Abd pain r/t kidney surgery on 04/17/2017 Hospitalization [facility]- Abd pain r/t kidney surgery on 04/18/2017 Hospitalization History [facility]- Lower abd pain 04/30/2017 Hospitalization History [facility]- Cannot urinate 05/30/2017 Hospitalization [facility]- Pancreatitis Sx 06/29/2017 Hospitalization [facility]- Stomach pain 07/22/2017 Hospitalization [facility]- Left side pain 08/12/2017 Hospitalization [facility]- Incision site infection 08/30/2017 Hospitalization History [facility]- Post Op Seroma/Hematoma Left Abdomen. Discharged 09/04/17- Dr Daniel 09/02/2017 Hospitalization [facility]- Right shoulder and back pain 2017 Hospitalization History [facility]- Shoulder/Back pain 11/11/2017 Hospitalization History [facility]- Right shoulder blade pain 12/04/2017 Hospitalization History [facility]- C-Diff 12/13/2017
--- OUTSIDE RECORDS SUMMARY | 2017-12-27 10:07 | XMS REPORT ---
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 Role Phone CARMEN GIBBS Unavailable PROBLEMS Type Condition ICD9-CM Code SXX32-GP Code Onset Dates Condition Status SNOMED Code Problem Asthma J45.909 Active 067422476 Problem Atelectasis J98.11 Active 98288545 Problem Polydipsia R63.1 Active 56086210 Problem Chronic fatigue R53.82 Active 77931106 Problem Moderate episode of recurrent major depressive disorder F33.1 Active 551170410 Problem Generalized social phobia F40.11 Active 27506633 Problem Trichotillomania F63.3 Active 57989880 Problem Restless leg syndrome G25.81 Active 79631526 Problem Chronic post-traumatic stress disorder (PTSD) F43.12 Active 599772034 Problem History of renal cell carcinoma Z85.528 Active 599973338 Problem Nodule of left lung R91.1 Active 837289112 Problem Chronic tension-type headache, intractable G44.221 Active 014555627 Problem Hyperlipidemia, mixed E78.2 Active 084994336 Problem Hirsuties L68.0 Active 225765258 Problem Morbid (severe) obesity due to excess calories E66.01 Active 235923014 Problem FH: polycystic ovary Z84.2 Active 857029533 Problem Chronic pancreatitis K86.1 Active 196262501 ALLERGIES No Information ENCOUNTERS Encounter Location Date Diagnosis [facility] [address] [id number] [address] Feb, [facility] [address] [id number], [place] [address] 2[address] Dec, [facility] [address] [id number], [place] [address] 78[address] Dec, [facility] [id number] [place] [address] 55142- 7195 Dec, Clostridium difficile colitis A04.72 ; Intractable vomiting with nausea, unspecified vomiting type R11.2 and BMI 45.0-49.9, adult Z68.42 [facility] [id number] [place] [address] 96143- 5033 Dec, [facility] [id number] [place] [address] 89002- 0364 Nov, [facility] [id number] [place] [address] 13513- 6204 Nov, [place] [address] [address]- 6357 Nov, [place] [id number] [place] [address] 22546- 9576 Nov, [facility] [place] [facility] [id number] [place] [address] 64103 -2337 Nov, [facility] [id number] [place] [address] 54319- 5782 Nov, Hyperlipidemia, mixed E78.2 [facility] [place] [id number] [place] [address] 11728 -7422 Nov, Acute suppurative otitis media of right ear without spontaneous rupture of tympanic membrane, recurrence not specified H66.001 and BMI 45.0-49.9, adult Z68.42 [facility] [id number] [place] [address] 55064- 9611 Nov, Hyperlipidemia, mixed E78.2 [facility] [id number] [place] [address] 75388- 7847 Nov, [facility] [id number] [place] [address] 94299- 2481 Nov, [facility] [id number] [place] [address] 84819- 9179 Nov, Nodule of left lung R91.1 [place] [id number] [place] [address] 40395- 5610 Nov, Medicare annual wellness visit, initial Z00.00 [...] adult Z68.42 and Encounter for immunization Z23 [place] [id number] [place] [address] 61393- 5095 October, [place] [id number] [place] [address] 62270- 7583 October, Nodule of left lung R91.1 [place] [id number] [place] [address] 65425- 9723 October, Nodule of left lung R91.1 [place] [id number] [place] [address] 55622- 0766 October, Recurrent major depressive disorder, in partial remission F33.41 ; Restless leg syndrome G25.81 ; Generalized social phobia F40.11 ; Chronic post-traumatic stress disorder (PTSD) F43.12 ; BMI 45.0-49.9, adult Z68.42 and Trichotillomania F63.3 [place] [id number] [place] [address] 58153- 2196 October, [place] [id number] [place] [address] 74238- 0759 Sep, Chronic fatigue R53.82 and BMI 45.0-49.9, adult Z68.42 [place] [id number] [place] [address] 82140- 8969 Aug, [place] [id number] [place] [address] 29590- 5562 Jul, Restless leg syndrome G25.81 and B12 deficiency E53.8 [place] [id number] [place] [address] 02263- 4372 Jul, [place] [id number] [place] [address] 76070- 2016 Jul, [place] [address] 55260- 3064 Jun, [place] [id number] [place] [address] 29951- 8243 Jun, Fatigue, unspecified type R53.83 ; History of renal cell carcinoma Z85.528 ; Chronic pancreatitis K86.1 ; Restless leg syndrome G25.81 ; Dark urine R82.99 and BMI 45.0-49.9, adult Z68.42 [place] [id number] [place] [address] 84564- 8414 Jun, [place] [id number] [place] [address] 73186- 7699 Jun, [place] [id number] [place] [address] 31998- 2849 Jun, [place] [id number] [place] [address] 90741- 6891 Jun, [place] [id number] [place] [address] 60145- 6893 May, Chronic post-traumatic stress disorder (PTSD) F43.12 ; Moderate episode of recurrent major depressive disorder F33.1 ; Trichotillomania F63.3 and Generalized social phobia F40.11 [place] [id number] [place] [address] 18733- 4479 May, [place] [id number] [place] [address] 30130- 1555 May, Chronic post-traumatic stress disorder (PTSD) F43.12 ; Moderate episode of recurrent major depressive disorder F33.1 ; Trichotillomania F63.3 and Generalized social phobia F40.11 [place] [address] [place] [address] 03169- 7950 07 May, 2017 Hyperlipidemia, mixed E78.2 ; Morbid (severe) obesity due to excess calories E66.01 ; Chronic post-traumatic stress disorder (PTSD) F43.12 ; Moderate episode of recurrent major depressive disorder F33.1 ; Trichotillomania F63.3 and Generalized social phobia F40.11 [place] [address], [place] [address] 8211 Apr, [place] [id number] [place] [address] 93704- 3950 29 Apr, 2017 Hyperlipidemia, mixed E78.2 ; Morbid (severe) obesity due to excess calories E66.01 ; Chronic post-traumatic stress disorder (PTSD) F43.12 ; Moderate episode of recurrent major depressive disorder F33.1 ; Trichotillomania F63.3 and Generalized social phobia F40.11 [place] [address] [address]- 8286 Apr, Trichotillomania F63.3 ; Generalized social phobia F40.11 ; Chronic post-traumatic stress disorder (PTSD) F43.12 and Moderate episode of recurrent major depressive disorder F33.1 [place] [address] [address]- 8716 Apr, [place] [address], [place] [address]- 7184 Apr, [place] [id number] [place] [address] 39935- 5858 Mar, Moderate episode of recurrent major depressive disorder F33.1 ; Trichotillomania F63.3 ; Chronic post-traumatic stress disorder (PTSD) F43.12 ; Generalized social phobia F40.11 and Restless leg syndrome G25.81 [place] [id number] [place] [address] 70344- 2031 Mar, [facility] [id number] [place] [address] 73553- 0090 Mar, [facility] [id number] [place] [address] 33095- 8929 Feb, Left kidney mass N28.89 [facility] [address] 62643- 5280 Jan, [facility] [id number] [place] [address] 67092- 3501 Dec, Polydipsia R63.1 ; Chronic pancreatitis K86.1 and Fatigue, unspecified type R53.83 [facility] [id number] [place] [address] 83280- 6413 Nov, [facility] [id number] [place] [address] 31266- 0569 Nov, [facility] [id number] [place] [address] 74437- 9080 Nov, Headache around the eyes R51 [facility] [id number] [place] [address] 73134- 0803 Nov, [facility] [id number] [place] [address] 18146- 0756 October, STD exposure Z20.2 [facility] [id number] [place] [address] 98502- 5154 October, STD exposure Z20.2 [facility] [address] [place] [address] 36711- 4031 October, Chronic post-traumatic stress disorder (PTSD) F43.12 ; Generalized social phobia F40.11 ; Trichotillomania F63.3 and Restless leg syndrome G25.81 [facility] [address] [place] [address] 59345- 2613 October, [place] [address] [place] [address] 66172- 9363 Sep, [place] [id number] [place] [address] 35631- 7952 17 Aug, 2016 [place] [id number] [place] [address] 61709- 2413 15 Aug, 2016 [place] [address] 45619- 0655 08 Aug, 2016 Neck mass R22.1 [place] [address] 62373- 7972 Aug, Atelectasis J98.11 [place] [address] 97575- 8629 28 Jul, 2016 Hyperlipidemia, mixed E78.2 ; Atypical pneumonia J18.9 and Neck mass R22.1 [place] [id number] [place] [address] 38457- 8488 15 Jul, 2016 Hemoptysis R04.2 [place] [id number] [place] [address] 35568- 6319 08 Jul, 2016 Acute non-recurrent pansinusitis J01.40 ; Hemoptysis R04.2 ; Polydipsia R63.1 and Malaise R53.81 [facility] [place] [id number] [place] [address] 09818 -9592 May, Other viral agents as the cause of diseases classified elsewhere B97.89 and Acute upper respiratory infection, unspecified J06.9 [facility] [place] [id number] [place] [address] 60429 -3783 Mar, Nausea R11.0 [facility] [place] [id number] [place] [address] 64638 -7279 Dec, Hives L50.[address] 84024- 3389 14 Dec, 2015 [facility] [place] [address], [place] [address] -1645 10 Dec, 2015 Cutaneous abscess of limb, unspecified L02.419 ; Cellulitis of unspecified part of limb L03.119 ; Encounter for incision and drainage procedure Z01.89 and Encounter for recheck of abscess following incision and drainage Z09 [facility] [address], [place] [address] 09 Dec, 2015 Abscess of leg, right L02.415 [place] [address] [place] [address] 00621- 5994 08 Dec, 2015 Cellulitis of unspecified part of limb L03.119 and Cutaneous abscess of limb, unspecified L02.419 [place] [address], [place] [address]- 0629 Dec, [place] [id number] [place] [address] 44750- 8925 Dec, [facility] [place] [id number] [place] [address] 62761 -0642 Aug, [place] [id number] [place] [address] 06811- 2933 Aug, [facility] [address] [place] [address] 97349 -6177 Jul, Pain in unspecified wrist M25.539 and Back pain, thoracic M54.6 [facility] [address] [address] -1694 Jun, Strain of right wrist, initial encounter S66.911A [place] [id number] [place] [address] 58526- 7824 11 Jun, 2015 Chronic pancreatitis, unspecified pancreatitis type K86.1 ; Hirsuties L68.0 ; Morbid (severe) obesity due to excess calories E66.01 ; Chronic pancreatitis K86.1 and Asthma J45.909 [place] [id number] [place] [address] 89287- 1144 May, [facility] [id number] [place] [address] 34243- 8820 May, Hyperlipidemia, mixed E78.2 and Muscle spasm of back M62.830 [facility] [id number] [place] [address] 27671- 2653 Apr, [facility] [address] 23095- 2288 Apr, Torticollis M43.6 [facility] [id number] [place] [address] 96700- 3940 Apr, Right-sided thoracic back pain M54.6 [facility] [id number] [place] [address] 24176- 3965 Mar, Rash R21 [facility] [address] 42568- 7929 Mar, [facility] [id number] [place] [address] 59363- 4301 Jan, [facility] [id number] [place] [address] 74222- 5201 Dec, [facility] [id number] [place] [address] 68128- 4948 Dec, Urinary frequency 788.41 and Nocturia more than twice per night 788.43 [facility] [id number] [place] [address] 16664- 6519 Nov, [facility] [id number] [place] [address] 06428- 8999 Nov, [facility] [id number] [place] [address] 51999- 7586 Nov, Abdominal pain 789.00 [facility] [id number] [place] [address] 13749- 4498 October, TDAP DX V06.1 [facility] [address] [id number] [address]- 4467 October, [facility] [address], [place] [address]- 4017 October, Disturbance of skin sensation 782.0 ; Wrist pain, right 719.43 ; Hyperlipidemia 272.4 and Skin lesion of face 709.9 [facility] [address] [id number], [place] [address]- 8482 Sep, [facility] [address] [id number], [place] [address]- 8595 Sep, [facility] [address] [id number], [place] [address]- 1125 Aug, [facility] [address], [place] [address]- 3703 Aug, [facility] [address], [place] [address]- 7340 Aug, [facility] [id number], [place] [address]- 9891 23 Aug, 2014 [facility] [address], [place] [address]- 1515 Aug, [facility] [address], [place] [address]- 9074 16 Aug, 2014 [facility] [address] [id number], [place] [address]- 4700 14 Aug, 2014 [facility] [address] [id number], [place] [address]- 0039 14 Aug, 2014 [facility] [address] [id number], [place] [address]- 2462 Aug, [facility] [address] [id number], [place] [address]- 3768 Aug, [facility] [address], [place] [address]- 2697 Aug, [facility] [place] [facility] [address] [id number] [place] [address]- 5917 Aug, [facility] [place] [facility] [address] [id number] [place] [address]- 7919 Aug, [facility] [place] [facility] [address] [id number] [place] [address]- 9956 Aug, [facility] [place] [facility] [address] [id number] [place] [address]- 1314 Jul, [facility] [place] [facility] [address] [id number] [place] [address]- 9655 Jul, [facility] [place] [facility] [address] [id number] [place] [address]- 9570 Jul, [facility] [place] [facility] [address] [id number] [place] [address]- 4840 Jul, [facility] [place] [facility] [address] [id number] [place] [address]- 7670 Jul, [facility] [place] [facility] [address] [id number] [place] [address]- 6810 Jul, [facility] [place] [facility] [address] [id number] [place] [address]- 3313 Jun, [facility] [place] [facility] [address] [id number] [place] [address]- 6879 Jun, [facility] [place] [facility] [address] [id number] [place] [address]- 2466 Jun, [facility] [place] [facility] [address] [id number] [place] [address]- 2986 Jun, [facility] [place] [facility] [address] [id number] [place] [address]- 1151 Jun, [facility] [place] [facility] [address] [id number] [place] [address]- 4261 Jun, [facility] [place] [facility] [address] [id number] [place] [address]- 7028 15 Jun, 2014 [facility] [place] [facility] [address] [id number] [place] [address]- 1383 15 Jun, 2014 [facility] [place] [facility] [address] [id number] [place] 8652 May, [facility] [place] [facility] [address] [id number] [place] [address]- 0361 May, [facility] [place] [facility] [address] [id number] [place] [address]- 5529 May, [facility] [place] [facility] [address] [id number] [place] [address]- 6516 May, [facility] [place] [facility] [address] [id number] [place] [address]- 4244 May, [facility] [place] [facility] [address] [id number] [place] [address]- 0378 May, [facility] [place] [facility] [address] [id number] [place] [address]- 1719 May, [facility] [place] [facility] [address] [id number] [place] [address]- 4888 May, [facility] [place] [facility] [address] [id number] [place] [address]- 7614 May, [facility] [place] [facility] [address] [id number] [place] [address]- 3950 May, [facility] [place] [facility] [address] [id number] [place] 1617 May, [facility] [place] [facility] [address] [id number] [place] [address]- 3741 May, [facility] [place] [facility] [address] [id number] [place] [address]- 3516 Apr, [facility] [place] [facility] [address] [id number], [place] [address]- 6417 Apr, [facility] [place] [facility] [address] [id number] [place] [address]- 2691 Apr, [facility] [place] [facility] [address] [id number], [place] [address]- 2873 Apr, [facility] [place] [facility] [address] [id number] [place] [address]- 4838 Apr, [facility] [place] [facility] [address] [id number] [place] [address]- 6844 Apr, [facility] [place] [facility] [address] [id number] [place] [address]- 8290 Apr, [facility] [place] [facility] [address] [id number] [place] [address]- 0783 Apr, [facility] [place] [facility] [address] [id number] [place] [address]- 6067 Apr, [facility] [place] [facility] [address] [id number] [place] [address]- 9322 Apr, [facility] [place] [facility] [address] [id number] [place] [address]- 0673 Apr, [facility] [place] [facility] [address] [id number] [place] [address]- 4392 Apr, [facility] [place] [facility] [address] [id number], [place] [address]- 0214 Mar, [facility] [place] [facility] [address] [id number], [place] [address]- 4658 Mar, [facility] [place] [facility] [address] [id number], [place] [address]- 1719 Mar, [facility] [place] [facility] [address] [id number], [place] [address]- 9677 Mar, [facility] [place] [facility] [address] [id number] [place] [address]- 0751 10 Feb, 2014 [facility] [place] [facility] [address] [id number] [place] [address]- 9125 10 Feb, 2013 [facility] [place] [facility] [address] [id number] [place] [address]- 6056 05 Feb, 2013 [facility] [place] [facility] [address] [id number] [address]- 6591 Feb, 2013 [facility] [place] [facility] [address] [id number] [place] [address]- 4651 05 Feb, 2013 [facility] [place] [facility] [address] [id number] [place] [address]- 7218 Feb, 2013 [facility] [place] [facility] [address] [id number] [place] [address]- 0821 Jan, [facility] [place] [facility] [address] [id number] [place] [address]- 2149 Jan, [facility] [place] [facility] [address] [id number] [place] [address]- 0337 Jan, [facility] [place] [facility] [address] [id number] [place] [address]- 4349 Jan, [facility] [place] [facility] [address] [id number] [place] [address]- 2280 Jan, [facility] [place] [facility] [address] [id number] [place] [address]- 3679 Jan, [facility] [place] [facility] [address] [id number] [place] [address] Jan, [facility] [place] [facility] [address] [id number] [place] [address] Jan, [facility] [place] [facility] [address] [id number] [place] [address] Jan, [facility] [place] [facility] [address] [id number] [place] [address] Jan, [facility] [place] [facility] [address] [id number] [place] [address] Jan, [facility] [place] [facility] [address] [id number] [place] [address] Jan, [facility] [place] [facility] [address] [id number] [place] [address] Jan, [facility] [place] [facility] [address] [id number] [place] [address] Jan, [facility] [place] [facility] [address] [id number] [place] [address] Dec, [facility] [place] [facility] [address] [id number] [place] [address] Dec, [facility] [place] [facility] [address] [id number] [place] [address] Dec, [facility] [place] [facility] [address] [id number] [place] [address] Dec, [facility] [place] [facility] [address] [id number] [place] [address] Nov, [facility] [place] [facility] [address] [id number] [place] [address] Nov, [facility] [place] [facility] [address] [id number] [place] [address]- [address] Nov, [facility] [place] [facility] [address] [id number] [place] [address]- [address] Nov, [facility] [place] [facility] [address] [id number] [place] [address] Nov, [facility] [place] [facility] [address] [id number] [place] [address] October, [facility] [place] [facility] [address] [id number] [place] [address] October, [facility] [place] [facility] [address] [id number] [place] [address] October, [facility] [place] [facility] [address] [id number] [place] [address] October, [facility] [place] [facility] [address] [id number] [place] [address] October, [facility] [place] [facility] [address] [id number] [place] [address]- [address] October, [facility] [place] [facility] [address] [id number] [place] [address]- [address] October, [facility] [place] [facility] [address] [id number] [place] [address] October, [facility] [place] [facility] [address] [id number] [place] [address]- [address] October, [facility] [place] [facility] [address] [id number] [place] [address] October, [facility] [place] [facility] [address] [id number] [place] [address]- [address] October, [facility] [place] [facility] [address] [id number] [place] [address]- [address] October, [facility] [place] [facility] [address] [id number] [place] [address] October, [facility] [place] [facility] [address] [id number] [place] [address]- [address] October, [facility] [place] [facility] [address] [id number] [place] [address]- [address] Sep, [facility] [place] [facility] [address] [id number] [place] [address] Sep, [facility] [place] [facility] [address] [id number] [place] [address] Sep, [facility] [place] [facility] [address] [id number] [place] [address]- [address] Sep, [facility] [place] [facility] [address] [id number] [place] [address] Sep, [facility] [place] [facility] [address] [id number] [place] [address]- [address] Sep, [facility] [place] [facility] [address] [id number] [place] [address] Sep, [facility] [place] [facility] [address] [id number] [place] [address] Sep, [facility] [place] [facility] [address] [id number] [place] [address] Sep, [facility] [place] [facility] [address] [id number] [place] [address] Sep, [facility] [place] [facility] [address] [id number] [place] [address] Sep, [facility] [place] [facility] [address] [id number] [place] [address] Sep, [facility] [place] [facility] [address] [id number] [place] [address] Sep, [facility] [place] [facility] [address] [id number] [place] [address] 86[address] Sep, [facility] [place] [facility] [address] [id number] [place] [address]- [address] Sep, [facility] [place] [facility] [address] [id number] [place] [address] 12[address] Aug, [facility] [place] [facility] [address] [id number] [place] [address]- 1334 Aug, [facility] [place] [facility] [address] [id number] [place] [address] 2795 Aug, [facility] [place] [facility] [address] [id number] [place] [address]- 7411 Aug, [facility] [place] [facility] [address] [id number] [place] [address]- 6705 Jul, [facility] [place] [facility] [address] [id number], [place] [address] Jul, [facility] [address] [id number] [place] [address] Jul, [facility] [address] [id number] [place] [address] Jul, [facility] [address] [id number] [place] [address]- 7330 15 Jun, 2013 [facility] [place] [facility] [address] [id number] [place] [address]- 2049 Jun, [facility] [address] [id number] [place] [address]- 6791 Jun, [facility] [address] [id number] [place] [address]- 0[address] Jun, [facility] [address] [id number] [place] [address]- [address]65 Jun, [facility] [address] [id number] [place] [address]- 2752 Jun, [facility] [address] [id number] [place] [address]- 0607 Jun, [facility] [address] [id number] [place] [address]- 3514 Jun, [facility] [address] [id number] [place] [address]- 5608 May, [facility] [place] [facility] [address] [id number] [place] [address]- 4065 May, [facility] [place] [facility] [address] [id number] [place] [address]- [address]20 18 May, 2013 [facility] [place] [facility] [address] [id number] [place] [address]- 0979 18 May, 2013 [facility] [address] [id number] [place] [address]- 8768 17 May, 2013 [facility] [place] [facility] [address] [id number] [place] [id number] 17 May, 2013 [facility] [address] [id number] [place] [address]- 2615 17 May, 2013 [facility] [address] [id number] [place] [address] 17 May, 2013 [facility] [address] [id number] [place] [address]- 4981 16 May, 2013 [facility] [address] [id number] [place] [address] 16 May, 2013 [facility] [address] [id number] [place] [address]- 8076 14 May, 2013 [facility] [address] [id number] [place] [address]- 7764 14 May, 2013 [facility] [address] [id number] [place] [address]- 9783 13 May, 2013 [facility] [address] [id number] [place] [address]- 2305 13 May, 2013 [facility] [address] [id number] [place] [address]- 8745 12 May, 2013 [facility] [address] [id number] [place] [address]- 8415 12 May, 2013 [facility] [address] [id number] [place] [address]- 7134 11 May, 2013 [facility] [address] [id number] [place] [address] 11 May, 2013 [facility] [address] [id number] [place] [address]- 3656 Apr, [facility] [address] [id number] [place] [address] Apr, [facility] [address] [id number] [place] [address]- 3438 Apr, [facility] [address] [id number] [place] [address]- 1013 Apr, [facility] [place] [facility] [address] [id number] [place] [address]- 1052 Aug, [facility] [address] [id number] [place] [address]- 3035 Aug, [facility] [place] [facility] [address] [id number] [place] [address]- 6785 Aug, [facility] [address] [id number] [place] [address] Aug, [facility] [place] [facility] [address] [id number] [place] [address]- 1282 Jul, [facility] [address] [id number] [place] [address]- 3570 Jun, [facility] [address] [id number] [place] [address]- 4840 Jun, [facility] [address] [id number] [place] [address]- 9399 Jun, [facility] [address] [id number] [place] [address]- 5990 Jun, [facility] [address] [id number] [place] [address]- 1633 May, [facility] [place] [facility] [address] [id number], [place] [address]- 5953 May, [facility] [place] [facility] [address] [id number] [place] [address]- 9199 May, [facility] [place] [facility] [address] [id number] [place] [address]- 0396 May, [facility] [place] [facility] [address] [id number] [place] [address]- 9936 May, [facility] [place] [facility] [address] [id number], [place] [address]- 4881 May, [facility] [place] [facility] [address] [id number] [place] [address]- 3081 May, [facility] [place] [facility] [address] [id number], [place] [address]- 0399 Apr, [facility] [place] [facility] [address] [id number] [place] [address]- 8021 Apr, [facility] [place] [facility] [address] [id number], [place] [address]- 4301 Apr, [facility] [place] [facility] [address] [id number] [place] [address], [place] [address]- 9701 Apr, [facility] [place] [facility] [address] [id number], [place] [address]- 8247 Apr, [facility] [place] [facility] [address] [id number] [place] [address]- 9489 Apr, [facility] [place] [facility] [address] [id number], [place] [address]- 3782 Apr, [facility] [place] [facility] [address] [id number], [place] [address]- 4598 Mar, [facility] [place] [facility] [address] [id number], [place] [address]- 7641 Mar, [facility] [place] [facility] [address] [id number], [place] [address]- 9710 Mar, [facility] [place] [facility] [address] [id number], [place] [address]- 4217 Mar, [facility] [place] [facility] [address] [id number], [place] [address]- 3860 Mar, [facility] [place] [facility] [address] [id number], [place] [address]- 0233 Mar, [facility] [place] [facility] [address] [id number], [place] [address]- 9352 Mar, [facility] [place] [facility] [address] [id number] [place] [address] 2542 Mar, [facility] [place] [facility] [address] [id number] [place] [address]- 7626 Mar, [facility] [place] [facility] [address] [id number] [place] [address] 2546 Mar, [facility] [place] [facility] [address] [id number] [place] [address]- 3896 Mar, [facility] [place] [facility] [address] [id number] [place] [address]- 8831 Mar, [facility] [place] [facility] [address] [id number] [place] [address]- 4376 Feb, [facility] [place] [facility] [address] [id number] [place] [address]- 6996 Jan, [facility] [place] [facility] [address] [id number] [place] [address]- 2526 Jan, [facility] [place] [facility] [address] [id number] [place] [address]- 4599 Jan, [facility] [place] [facility] [address] [id number] [place] [address]- 0254 Jan, [facility] [place] [facility] [address] [id number] [place] [address]- 7159 Jan, [facility] [place] [facility] [address] [id number] [place] [address]- 8867 Dec, [facility] [place] [facility] [address] [id number] [place] [address]- 7890 Dec, [facility] [place] [facility] [address] [id number] [place] [address]- 4476 Nov, [facility] [place] [facility] [address] [id number] [place] [address]- 2546 Nov, [facility] [place] [facility] [address] [id number] [place] [address]- 4987 Nov, [facility] [address] [id number] [place] [address]- 3344 October, [facility] [address] [id number] [place] [address]- 9292 October, [facility] [address] [id number] [place] [address]- 2300 October, [facility] [address] [id number] [place] [address]- 5574 October, [facility] [address] [id number] [place] [address]- 8872 October, [facility] [address] [id number] [place] [address]- 9429 October, [facility] [address] [id number] [place] [address]- 3357 October, [facility] [address] [id number] [place] [address]- 2899 Sep, [facility] [place] [facility] [address] [id number] [place] [address]- 5855 Sep, [facility] [place] [facility] [address] [id number] [place] [address]- 9543 Sep, [facility] [place] [facility] [address] [id number] [place] [address]- 5203 25 Sep, 2011 [facility] [place] [facility] [address] [id number], [place] [address]- 3809 24 Sep, 2011 [facility] [place] [facility] [address] [id number] [place] [address]- 5580 19 Sep, 2011 [facility] [place] [facility] [address] [id number] [place] [address]- 0954 17 Sep, 2011 [facility] [place] [facility] [address] [id number] [place] [address]- 7234 16 Sep, 2011 [facility] [place] [facility] [address] [id number] [place] [address]- 3576 16 Sep, 2011 [facility] [address] [id number] [place] [address]- 1906 14 Sep, 2011 [facility] [place] [facility] [address] [id number] [place] [address] 2546 13 Sep, 2011 [facility] [place] [facility] [address] [id number] [place] [address]- 0226 10 Sep, 2011 [facility] [place] [facility] [address] [id number] [place] [address] 2546 09 Sep, 2011 [facility] [place] [facility] [address] [id number] [place] [address]- 2068 27 Aug, 2011 [facility] [place] [facility] [address] [id number] [place] [address]- 1907 12 Aug, 2011 [facility] [place] [facility] [address] [id number] [place] [address]- 1876 08 Aug, 2011 [facility] [place] [facility] [address] [id number] [place] [address]- 6483 06 Aug, 2011 [facility] [place] [facility] [address] [id number] [place] [address]- 8862 28 Jul, 2011 [facility] [place] [facility] [address] [id number] [place] [address]- 3642 22 Jul, 2011 [facility] [place] [facility] [address] [id number] [place] [address] 2546 16 Jul, 2011 [facility] [place] [facility] [address] [id number] [place] [address] 2546 15 Jul, 2011 [facility] [place] [facility] [address] [id number] [place] [address]- 5086 14 Jul, 2011 [facility] [place] [facility] [address] [id number] [place] [address] 2546 10 Jul, 2011 [facility] [place] [facility] [address] [id number] [place] [address]- 7344 Jun, [facility] [place] [facility] [address] [id number] [place] [address]- 2161 Jun, [facility] [place] [facility] [address] [id number] [place] [address]- 9570 Jun, [facility] [place] [facility] [address] [id number] [place] [address]- 2573 Jun, [facility] [place] [facility] [address] [id number] [place] [address]- 5003 Jun, [facility] [place] [facility] [address] [id number] [place] [address]- 5749 May, [facility] [place] [facility] [address] [id number] [place] [address]- 0468 May, [facility] [place] [facility] [address] [id number] [place] [address]- 1165 May, [facility] [place] [facility] [address] [id number] [place] [address]- 2461 May, [facility] [place] [facility] [address] [id number] [place] [address]- 4946 May, [facility] [place] [facility] [address] [id number] [place] [address]- 1875 May, [facility] [place] [facility] [address] [id number], [place] [address]- 8762 May, [facility] [place] [facility] [address] [id number], [place] [address]- 4651 15 Apr, 2011 [facility] [place] [facility] [address] [id number] [place] [address]- 4708 15 Apr, 2011 [facility] [place] [facility] [address] [id number], [place] [address]- 5042 07 Apr, 2011 [facility] [place] [facility] [address] [id number] [place] [address]- 5572 07 Apr, 2011 [facility] [place] [facility] [address] [id number] [place] [address]- 5194 Apr, [facility] [place] [facility] [address] [id number] [place] [address]- 5625 Apr, [facility] [place] [facility] [address] [id number] [place] [address]- 3947 Mar, [facility] [place] [facility] [address] [id number] [place] [address]- 7578 Mar, [facility] [place] [facility] [address] [id number] [place] [address]- 8711 Mar, [facility] [place] [facility] [address] [id number] [place] [address]140 Mar, [facility] [place] [facility] [address] [id number] [place] [address]- 4059 Jan, [facility] [place] [facility] [address] [id number] [place] [address]- 9762 Dec, [facility] [place] [facility] [address] [id number] [place] [address]- 1770 Dec, [facility] [place] [facility] [address] [id number] [place] [address]- 9685 October, [facility] [place] [facility] [address] [id number] [place] [address]- 2374 Sep, [facility] [place] [facility] [address] [id number] [place] [address]- 9311 14 Sep, 2010 [facility] [place] [facility] [address] [id number] [place] [address]- 1176 17 Jul, 2010 [facility] [place] [facility] [address] [id number] [place] [address]- 3607 16 Jul, 2010 [facility] [place] [facility] [address] [id number] [place] 6775 May, [facility] [place] [facility] [address] [id number] [place] 5496 May, [facility] [place] [facility] [address] [id number] [place] [address]- 1930 08 May, 2010 [facility] [place] [facility] [address] [id number] [place] 9468 May, [facility] [place] [facility] [address] [id number] [place] 8602 Apr, [facility] [place] [facility] [address] [id number] [place] [address]- 6582 Apr, [facility] [address] [id number] [place] [address]- 0889 Apr, [facility] [place] [facility] [address] [id number] [place] [address]- 1870 Apr, [facility] [address] [id number] [place] [address]- 3990 Apr, [facility] [address] [id number] [place] [address]- 4602 Mar, [facility] [place] [facility] [address] [id number] [place] [address]- 6515 14 Mar, 2010 [facility] [place] [facility] [address] [id number] [place] [address]- 1491 Mar, [facility] [place] [facility] [address] [id number] [place] [address]- 0340 Mar, [facility] [place] [facility] [address] [id number], [place] [address]- 9852 Jan, [facility] [place] [facility] [address] [id number] [place] [address]- 7736 15 Dec, 2009 [facility] [place] [facility] [address] [id number] [place] [address]- 9918 10 Sep, 2009 [facility] [place] [facility] [address] [id number] [place] [address]- 6792 08 May, 2009 [facility] [place] [facility] [address] [id number], [place] [address]- 2726 May, [facility] [id number] [address] May, [facility] [id number], [place] [address]- 9536 Apr, [facility] [id number] 9743 Apr, [facility] [id number] [place] [address] 941329- 2321 Apr, [facility] [id number] [place] [address] 389[address]- 2923 Apr, [facility] [id number] [place] [address] 064[address]- 2397 Apr, [facility] [id number] 1926 Mar, [facility] [id number], [place] [address]- 0066 Mar, [facility] [id number], [place] [address]- 4381 Jul, IMMUNIZATIONS No Known Immunizations SOCIAL HISTORY Never Assessed REASON FOR VISIT Refill Request PLAN OF CARE VITAL SIGNS MEDICATIONS Medication Instructions Dosage Frequency Start Date End Date Duration Status VanishPoint Syringe 23G X 1" 3 ML as directed Jul, Active Ropinirole HCl 4 MG Orally Once a day 1 tablet before bedtime 24h 30 days Active RESULTS No Results [...] 08/2017 Surgical History nephrectomy 03/2017 Hospitalization History Cellulitis-[facility] 12/20/15 [facility]- Abd pain 03/07/2017 [facility]- Abd pain 03/14/2017 [facility]- No bowel movement, rash 04/13/2017 [facility]- Abd pain r/t kidney surgery on 04/17/2017 [facility]- Abd pain r/t kidney surgery on 04/18/2017 [facility]- Lower abd pain 04/30/2017 [facility]- Cannot urinate 05/30/2017 [facility]- Pancreatitis Sx 06/29/2017 [facility]- Stomach pain 07/22/2017 [facility]- Left side pain 08/12/2017 [facility]- Incision site infection 08/30/2017 Hospitalization History [facility]- Post Op Seroma/Hematoma Left Abdomen. Discharged 09/04/17- Dr Daniel 09/02/2017 [facility]- Right shoulder and back pain 2017 Hospitalization History [facility]- Shoulder/Back pain 11/11/2017 [facility]- Right shoulder blade pain 12/04/2017 [facility]ization History [facility]- C-Diff 12/13/2017
--- OUTSIDE RECORDS SUMMARY | 2017-12-27 10:08 | XMS REPORT ---
Author Author SAI CARMEN Organization [facility] Address [address] [place] [address] Care Team Providers Care Food Science Technician Name Role Phone CARMEN GIBBS Unavailable PROBLEMS Type Condition ICD9-CM Code EYA02-JT Code Onset Dates Condition Status SNOMED Code Problem Asthma J45.909 Active 370497992 Problem Atelectasis J98.11 Active 88796328 Problem Polydipsia R63.1 Active 42504794 Problem Chronic fatigue R53.82 Active 41477373 Problem Moderate episode of recurrent major depressive disorder F33.1 Active 914439362 Problem Generalized social phobia F40.11 Active 35137958 Problem Trichotillomania F63.3 Active 27401809 Problem Restless leg syndrome G25.81 Active 85562344 Problem Chronic post-traumatic stress disorder (PTSD) F43.12 Active 928497440 Problem History of renal cell carcinoma Z85.528 Active 727289865 Problem Nodule of left lung R91.1 Active 683135337 Problem Chronic tension-type headache, intractable G44.221 Active 884519672 Problem Hyperlipidemia, mixed E78.2 Active 901628899 Problem Hirsuties L68.0 Active 700866705 Problem Morbid (severe) obesity due to excess calories E66.01 Active 198081963 Problem FH: polycystic ovary Z84.2 Active 867016697 Problem Chronic pancreatitis K86.1 Active 649869586 ALLERGIES No Information ENCOUNTERS Encounter Location Date Diagnosis [facility] [address] [facility] [id number] [address] Feb, [facility] [id number] [address] Dec, [facility] [address] [facility] [id number] [address] Nov, Acute suppurative otitis media of right ear without spontaneous rupture of tympanic membrane, recurrence not specified H66.001 and BMI 45.0-49.9, adult Z68.42 [place] [id number] [place] [address] 50205- 3486 Nov, Hyperlipidemia, mixed E78.2 [place] [address] [place] [address] 10916- 2733 Nov, [place] [id number] [place] [address] 70642- 5035 Nov, [place] [id number] [place] [address] 80917- 5487 Nov, Nodule of left lung R91.1 [place] [id number] [place] [address] 32067- 6406 Nov, Medicare annual wellness visit, initial Z00.00 [...] adult Z68.42 and Encounter for immunization Z23 [place] [address] [place] [address] 37036- 2659 October, [facility] [id number] [place] [address] 72536- 8808 October, Nodule of left lung R91.1 [place] [id number] [place] [address] 15648- 7212 October, Nodule of left lung R91.1 [place] [address] [place] [address] 49232- 4821 October, Recurrent major depressive disorder, in partial remission F33.41 ; Restless leg syndrome G25.81 ; Generalized social phobia F40.11 ; Chronic post-traumatic stress disorder (PTSD) F43.12 ; BMI 45.0-49.9, adult Z68.42 and Trichotillomania F63.3 [place] [id number] [place] [address] 84195- 0965 October, [place] [id number] [place] [address] 29754- 5072 Sep, Chronic fatigue R53.82 and BMI 45.0-49.9, adult Z68.42 [place] [id number] [place] [address] 38743- 5145 Aug, [place] [address] 04178- 7988 Jul, Restless leg syndrome G25.81 and B12 deficiency E53.8 [place] [address] 41090- 4773 Jul, [facility] [id number] [place] [address] 61811- 9714 Jul, [facility] [place] [id number] [place] [address] 32163- 0596 Jun, [place] [id number] [place] [address] 89455- 8526 Jun, Fatigue, unspecified type R53.83 ; History of renal cell carcinoma Z85.528 ; Chronic pancreatitis K86.1 ; Restless leg syndrome G25.81 ; Dark urine R82.99 and BMI 45.0-49.9, adult Z68.42 [place] [id number] [place] [address] 21737- 6528 Jun, [place] [id number] [place] [address] 61003- 1735 Jun, [place] [id number] [place] [address] 16845- 1723 Jun, [place] [address] [address] 7378 Jun, [place] [address] [place] [address] 79287- 4419 May, Chronic post-traumatic stress disorder (PTSD) F43.12 ; Moderate episode of recurrent major depressive disorder F33.1 ; Trichotillomania F63.3 and Generalized social phobia F40.11 [place] [address] [place] [address] 73117- 7271 May, [place] [address] [place] [address] 15028- 3339 May, Chronic post-traumatic stress disorder (PTSD) F43.12 ; Moderate episode of recurrent major depressive disorder F33.1 ; Trichotillomania F63.3 and Generalized social phobia F40.11 [place] [address] [place] [address] 52516- 1543 May, Hyperlipidemia, mixed E78.2 ; Morbid (severe) obesity due to excess calories E66.01 ; Chronic post-traumatic stress disorder (PTSD) F43.12 ; Moderate episode of recurrent major depressive disorder F33.1 ; Trichotillomania F63.3 and Generalized social phobia F40.11 [place] [address] [address] 2206 Apr, [place] [address] [place] [address] 96242- 4599 Apr, Hyperlipidemia, mixed E78.2 ; Morbid (severe) obesity due to excess calories E66.01 ; Chronic post-traumatic stress disorder (PTSD) F43.12 ; Moderate episode of recurrent major depressive disorder F33.1 ; Trichotillomania F63.3 and Generalized social phobia F40.11 [place] [address] [address] 3680 Apr, Trichotillomania F63.3 ; Generalized social phobia F40.11 ; Chronic post-traumatic stress disorder (PTSD) F43.12 and Moderate episode of recurrent major depressive disorder F33.1 [facility] [id number] [place] [address] 51848- 1367 Apr, [facility] [id number] [place] [address] 87390- 6531 Apr, [facility] [id number] [place] [address] 79181- 8406 Mar, Moderate episode of recurrent major depressive disorder F33.1 ; Trichotillomania F63.3 ; Chronic post-traumatic stress disorder (PTSD) F43.12 ; Generalized social phobia F40.11 and Restless leg syndrome G25.81 [facility] [id number] [place] [address] 30562- 6316 Mar, [facility] [id number] [place] [address] 48123- 9116 Mar, [facility] [id number] [place] [address] 44924- 2437 Feb, Left kidney mass N28.89 [facility] [id number] [place] [address] 33765- 3484 Jan, [facility] [id number] [place] [address] 51955- 9177 Dec, Polydipsia R63.1 ; Chronic pancreatitis K86.1 and Fatigue, unspecified type R53.83 [facility] [id number] [place] [address] 47961- 1493 Nov, [facility] [id number] [place] [address] 56947- 1738 Nov, [facility] [id number] [place] [address] 22094- 9065 Nov, Headache around the eyes R51 [facility] [id number] [place] [address] 32745- 2619 Nov, [facility] [address] [place] [address]- 7661 October, STD exposure Z20.2 [place] [id number] [place] [address] 07171- 9356 October, STD exposure Z20.2 [facility] [id number] [place] [address] 59715- 6912 October, Chronic post-traumatic stress disorder (PTSD) F43.12 ; Generalized social phobia F40.11 ; Trichotillomania F63.3 and Restless leg syndrome G25.81 [place] [id number] [place] [address] 28494- 5506 October, [place] [id number] [place] [address] 49544- 3146 Sep, [place] [id number] [place] [address] 30646- 7673 Aug, [place] [id number] [place] [address] 22373- 0578 Aug, [facility] [id number] [place] [address] 80396- 8219 Aug, Neck mass R22.1 [place] [id number] [place] [address] 59731- 6645 Aug, Atelectasis J98.11 [place] [id number] [place] [address] 99318- 6253 Jul, Hyperlipidemia, mixed E78.2 ; Atypical pneumonia J18.9 and Neck mass R22.1 [place] [id number] [place] [address] 10439- 0260 15 Jul, 2016 Hemoptysis R04.2 [facility] [id number] [place] [address] 59307- 6668 08 Jul, 2016 Acute non-recurrent pansinusitis J01.40 ; Hemoptysis R04.2 ; Polydipsia R63.1 and Malaise R53.81 [facility], [place] [address] May, Other viral agents as the cause of diseases classified elsewhere B97.89 and Acute upper respiratory infection, unspecified J06.9 [facility] [place] [id number] [place] [address] 87648 -7205 Mar, Nausea R11.0 [facility] [place] [id number] [place] [address] 82087 -2927 Dec, Hives L50.9 [place] [id number] [place] [address] 55833- 1920 Dec, [facility] [place] [id number] [place] [address] 18424 -2176 Dec, Cutaneous abscess of limb, unspecified L02.419 ; Cellulitis of unspecified part of limb L03.119 ; Encounter for incision and drainage procedure Z01.89 and Encounter for recheck of abscess following incision and drainage Z09 [facility] [place] [id number] [place] [address] 30181 -5419 Dec, Abscess of leg, right L02.415 [place] [id number] [place] [address] 35404- 8826 Dec, Cellulitis of unspecified part of limb L03.119 and Cutaneous abscess of limb, unspecified L02.419 [place] [id number] [place] [address] 64078- 8954 Dec, [place] [id number] [place] [address] 85484- 5099 Dec, [facility] [place] [id number] [place] [address] 32107 -3591 Aug, [place] [id number] [place] [address] 98369- 4810 Aug, [facility] [place] [id number] [place] [address] 18718 -1683 04 Jul, 2015 Pain in unspecified wrist M25.539 and Back pain, thoracic M54.6 [facility] [id number] [place] [address] 88377 -4864 Jun, Strain of right wrist, initial encounter S66.911A [facility] [id number] [place] [address] 36317- 0335 Jun, Chronic pancreatitis, unspecified pancreatitis type K86.1 ; Hirsuties L68.0 ; Morbid (severe) obesity due to excess calories E66.01 ; Chronic pancreatitis K86.1 and Asthma J45.909 [place] [address] 06573- 5079 May, [facility] [address] 40087- 8053 May, Hyperlipidemia, mixed E78.2 and Muscle spasm of back M62.830 [facility] [id number] [place] [address] 97145- 7698 Apr, [facility] [address] 26896- 8244 Apr, Torticollis M43.6 [facility] [id number] [place] [address] 98605- 8104 Apr, Right-sided thoracic back pain M54.6 [facility] [id number] [place] [address] 53079- 1629 Mar, Rash R21 [facility] [id number] [place] [address] 55014- 1865 Mar, [facility] [address] 60711- 4719 Jan, [facility] [id number] [place] [address] 64865- 1685 Dec, [facility] [address] 70449- 5763 Dec, Urinary frequency 788.41 and Nocturia more than twice per night 788.43 [facility] [id number] [place] [address] 64858- 4397 Nov, [facility] [id number] [place] [address] 82893- 8346 Nov, [facility] [id number] [place] [address] 40403- 9148 Nov, Abdominal pain 789.00 [facility] [id number] [place] [address] 52422- 1257 October, TDAP DX V06.1 [facility] [id number] [place] [address] 84420- 0295 October, [facility] [id number] [place] [address] 47417- 1912 October, Disturbance of skin sensation 782.0 ; Wrist pain, right 719.43 ; Hyperlipidemia 272.4 and Skin lesion of face 709.9 [facility] [address] [place] [address] 89368- 8508 Sep, [facility] [id number] [place] [address] 70516- 8816 Sep, [facility] [address] [address]- 2797 Aug, [facility] [id number] [place] [address] 92851- 7851 Aug, [facility] [address], [place] [address]- 5094 Aug, [facility] [id number] [place] [address] 56462- 2345 Aug, [facility] [address] [address]- 3616 16 Aug, 2014 [facility] [address] [address]- 6445 16 Aug, 2014 [facility] [place] [facility] [address] [id number] [place] [address]- 9628 14 Aug, 2014 [facility] [place] [facility] [address] [id number] [place] [address]- 6568 14 Aug, 2014 [facility] [place] [facility] [address] [id number] [place] [address]- 0154 11 Aug, 2014 [facility] [place] [facility] [address] [id number] [place] [address]- 0447 11 Aug, 2014 [facility] [place] [facility] [address] [id number] [place] [address]- 7368 04 Aug, 2014 [facility] [place] [facility] [address] [id number] [place] [address]- 6582 04 Aug, 2014 [facility] [place] [facility] [address] [id number] [place] [address]- 4277 Aug, [facility] [place] [facility] [address] [id number] [place] [address]- 3936 03 Aug, 2014 [facility] [place] [facility] [address] [id number] [place] [address]- 8379 Jul, 2014 [facility] [place] [facility] [address] [id number] [place] [address]- 3447 23 Jul, 2014 [facility] [place] [facility] [address] [id number] [place] [address]- 2458 13 Jul, 2014 [facility] [place] [facility] [address] [id number] [place] [address]- 9378 Jul, 2014 [facility] [place] [facility] [address] [id number] [place] [address]- 6342 Jul, [facility] [place] [facility] [address] [id number] [place] [address]- 2012 04 Jul, 2014 [facility] [place] [facility] [address] [id number] [place] [address]- 9474 Jun, [facility] [place] [facility] [address] [id number] [place] [address]- 0975 Jun, [facility] [place] [facility] [address] [id number] [place] [address]- 4267 Jun, [facility] [place] [facility] [address] [id number] [place] [address]- 3479 Jun, [facility] [place] [facility] [address] [id number] [place] [address]- 2421 Jun, [facility] [place] [facility] [address] [id number] [place] [address]- 6168 Jun, [facility] [place] [facility] [address] [id number] [place] [address]- 6471 Jun, [facility] [place] [facility] [address] [id number] [place] [address]- 6694 Jun, [facility] [place] [facility] [address] [id number] [place] [address]- 8995 May, [facility] [place] [facility] [address] [id number] [place] [address]- 2476 19 May, 2014 [facility] [place] [facility] [address] [id number] [place] [address]- 8720 18 May, 2014 [facility] [place] [facility] [address] [id number] [place] [address]- 0684 18 May, 2014 [facility] [place] [facility] [address] [id number] [address]- 1824 15 May, 2014 [facility] [place] [facility] [address] [id number] [place] [address]- 4269 15 May, 2014 [facility] [place] [facility] [address] [id number] [place] [address]- 2104 11 May, 2014 [facility] [place] [facility] [address] [id number] [place] [address]- 6242 11 May, 2014 [facility] [place] [facility] [address] [id number] [place] [address]- 7219 May, [facility] [place] [facility] [address] [id number] [place] [address]- 6300 May, [facility] [place] [facility] [address] [id number] [place] [address]- 1987 May, [facility] [place] [facility] [address] [id number] [place] [address]- 4801 May, [facility] [place] [facility] [address] [id number] [place] [address]- 9316 Apr, [facility] [place] [facility] [address] [id number] [place] [address]- 4802 Apr, [facility] [place] [facility] [address] [id number] [place] [address]- 4797 Apr, [facility] [place] [facility] [address] [id number] [place] [address]- 3435 Apr, [facility] [place] [facility] [address] [id number] [place] [address]- 0602 Apr, [facility] [place] [facility] [address] [id number] [place] [address]- 5548 Apr, [facility] [place] [facility] [address] [id number] [place] [address]- 2566 Apr, [facility] [place] [facility] [address] [id number] [place] [address]- 9913 Apr, [facility] [place] [facility] [address] [id number] [place] [address]- 9409 Apr, [facility] [place] [facility] [address] [id number] [place] [address]- 9867 Apr, [facility] [place] [facility] [address] [id number] [place] [address]- 7635 Apr, [facility] [place] [facility] [address] [id number] [place] [address]- 0844 Apr, [facility] [place] [facility] [address] [id number] [place] [address]- 4511 Mar, [facility] [place] [facility] [address] [id number] [place] [address]- 4529 Mar, [facility] [place] [facility] [address] [id number] [place] [address]- 5858 Mar, [facility] [place] [facility] [address] [id number] [place] [address]- 0850 Mar, [facility] [place] [facility] [address] [id number] [place] [address]- 8713 Feb, [facility] [place] [facility] [address] [id number] [place] [address]- 5969 Feb, 2013 [facility] [place] [facility] [address] [id number] [place] [address]- 4938 Feb, 2013 [facility] [place] [facility] [address] [id number] [place] [address]- 8573 Feb, 2013 [facility] [place] [facility] [address] [id number] [place] [address]- 8203 Feb, [facility] [place] [facility] [address] [id number] [place] [address]- 5148 Feb, 2013 [facility] [place] [facility] [address] [id number] [place] [address]- 5505 Jan, [facility] [place] [facility] [address] [id number] [place] [address]- 3253 Jan, [facility] [place] [facility] [address] [id number] [place] [address]- 8524 Jan, [facility] [place] [facility] [address] [id number] [place] [address]- 4375 Jan, [facility] [place] [facility] [address] [id number] [place] [address]- 4618 Jan, [facility] [place] [facility] [address] [id number] [place] [address]- 7984 Jan, [facility] [place] [facility] [address] [id number] [place] [address]- 6015 Jan, [facility] [place] [facility] [address] [id number] [place] [address]- 2218 Jan, [facility] [place] [facility] [address] [id number] [place] [address]- 8489 Jan, [facility] [place] [facility] [address] [id number] [place] [address]- 0585 Jan, [facility] [place] [facility] [address] [id number] [place] [address]- 3615 Jan, [facility] [place] [facility] [address] [id number] [place] [address]- 0805 Jan, [facility] [place] [facility] [address] [id number] [place] [address] Jan, [facility] [place] [facility] [address] [id number] [place] [address] Jan, [facility] [place] [facility] [address] [id number] [place] [address] Dec, [facility] [place] [facility] [address] [id number] [place] [address] Dec, [facility] [place] [facility] [address] [id number] [place] [address] Dec, [facility] [place] [facility] [address] [id number] [place] [address] Dec, [facility] [place] [facility] [address] [id number] [place] [address] Nov, [facility] [place] [facility] [address] [id number] [place] [address] Nov, [facility] [place] [facility] [address] [id number] [place] [address] Nov, [facility] [place] [facility] [address] [id number] [place] [address] Nov, [facility] [address] [id number] [place] [address] Nov, [facility] [place] [facility] [address] [id number] [place] [address] October, [facility] [place] [facility] [address] [id number] [place] [address] October, [facility] [place] [facility] [address] [id number] [place] [address] October, [facility] [place] [facility] [address] [id number] [place] [address] October, [facility] [place] [facility] [address] [id number] [place] [address] October, [facility] [place] [facility] [address] [id number] [place] [address] October, [facility] [address] [id number] [place] [address] October, [facility] [place] [facility] [address] [id number] [place] [address] October, [facility] [place] [facility] [address] [id number] [place] [address] October, [facility] [place] [facility] [address] [id number] [place] [address] October, [facility] [place] [facility] [address] [id number] [place] [address] October, [facility] [place] [facility] [address] [id number] [place] [address] October, [facility] [place] [facility] [address] [id number] [place] [address] October, [facility] [place] [facility] [address] [id number] [place] [address] October, [facility] [place] [facility] [address] [id number] [place] [address] Sep, [facility] [place] [facility] [address] [id number] [place] [address] Sep, [facility] [place] [facility] [address] [id number] [place] [address] Sep, [facility] [place] [facility] [address] [id number] [place] [address] Sep, [facility] [place] [facility] [address] [id number] [place] [address] Sep, [facility] [place] [facility] [address] [id number] [place] [address] Sep, [facility] [place] [facility] [address] [id number] [place] [address] Sep, [facility] [place] [facility] [address] [id number] [place] [address] Sep, [facility] [place] [facility] [address] [id number] [place] [address] Sep, [facility] [place] [facility] [address] [id number] [place] [address]- [address] Sep, [facility] [place] [facility] [address] [id number] [place] [address]- 2806 Sep, [facility] [place] [facility] [address] [id number] [place] [address] Sep, [facility] [place] [facility] [address] [id number] [place] [address] Sep, [facility] [place] [facility] [address] [id number] [place] [address] Sep, [facility] [place] [facility] [address] [id number] [place] [address] Sep, [facility] [place] [facility] [address] [id number] [place] [address] 29 Aug, 2013 [facility] [place] [facility] [address] [id number] [place] [address] 8258 29 Aug, 2013 [facility] [place] [facility] [address] [id number] [place] [address]- 6135 Aug, [facility] [place] [facility] [address] [id number] [place] [address]- 4811 Aug, [facility] [place] [facility] [address] [id number] [place] [address]- 9949 Jul, [facility] [place] [facility] [address] [id number] [place] [address]- 65[address] Jul, [facility] [place] [facility] [address] [id number] [place] [address]- [address] Jul, [facility] [place] [facility] [address] [id number] [place] [address]- 6321 Jul, [facility] [place] [facility] [address] [id number] [place] [address]- 6085 Jun, [facility] [place] [facility] [address] [id number] [place] [address]- 4877 Jun, [facility] [place] [facility] [address] [id number] [place] [address]- 6436 Jun, [facility] [place] [facility] [address] [id number] [place] [address]- 4198 Jun, [facility] [place] [facility] [address] [id number] [place] [address]- 4476 Jun, [facility] [place] [facility] [address] [id number] [place] [address]- 1787 Jun, [facility] [place] [facility] [address] [id number] [place] [address]- 8723 Jun, [facility] [place] [facility] [address] [id number] [place] [address]- 6078 Jun, [facility] [place] [facility] [address] [id number] [place] [address]- 5990 20 May, 2013 [facility] [address] [id number] [place] [address] 20 May, 2013 [facility] [address] [id number] [place] [address]- 6655 18 May, 2013 [facility] [address] [id number] [place] [address]- 0151 18 May, 2013 [facility] [address] [id number] [place] [address] 17 May, 2013 [facility] [address] [id number] [place] [id number] 17 May, 2013 [facility] [address] [facility] [id number] [place] [address]- 3592 17 May, 2013 [facility] [address] [id number] [place] [address]- 8070 17 May, 2013 [facility] [address] [id number] [place] [address]- 5550 16 May, 2013 [facility] [address] [id number] [place] [address]- 8394 16 May, 2013 [facility] [address] [id number] [place] [address]- 7849 14 May, 2013 [facility] [address] [id number] [place] [address]- 1605 14 May, 2013 [facility] [address] [id number] [place] [address] 13 May, 2013 [facility] [address] [id number] [place] [address]- 4401 13 May, 2013 [facility] [address] [id number] [place] [address]- 6094 12 May, 2013 [facility] [address] [id number] [place] [address]- 7714 May, [facility] [address] [id number] [place] [address]- 1172 May, [facility] [place] [facility] [address] [id number] [place] [address]- 7586 May, [facility] [place] [facility] [address] [id number] [place] [address]- 3267 Apr, [facility] [place] [facility] [address] [id number] [place] [address]- 2300 Apr, [facility] [place] [facility] [address] [id number] [place] [address]- 5320 Apr, [facility] [place] [facility] [address] [id number] [place] [address]- 2597 Apr, [facility] [address] [id number] [place] [address]- 7986 Aug, [facility] [place] [facility] [address] [id number] [place] [address]- 1491 Aug, [facility] [place] [facility] [address] [id number] [place] [address]- 4764 Aug, [facility] [place] [facility] [address] [id number] [place] [address]- 9245 Aug, [facility] [place] [facility] [address] [id number] [place] [address]- 0317 Jul, [facility] [place] [facility] [address] [id number] [place] [address]- 6443 Jun, [facility] [place] [facility] [address] [id number] [place] [address]- 6234 Jun, [facility] [place] [facility] [address] [id number] [place] [address]- 8499 Jun, [facility] [place] [facility] [address] [id number] [place] [address]- 2708 Jun, [facility] [place] [facility] [address] [id number] [place] [address]- 4718 May, [facility] [place] [facility] [address] [id number] [place] [address]- 2386 May, [facility] [place] [facility] [address] [id number] [place] [address]- 0386 May, [facility] [place] [facility] [address] [id number] [place] [address]- 1009 May, [facility] [place] [facility] [address] [id number] [place] [address]- 2042 May, [facility] [place] [facility] [address] [id number] [place] [address]- 2508 May, [facility] [place] [facility] [address] [id number] [place] [address]- 6488 May, [facility] [place] [facility] [address] [id number] [place] [address]- 8466 Apr, [facility] [address] [id number] [place] [address]- 9148 Apr, [facility] [place] [facility] [address] [id number] [place] [address]- 3590 Apr, [facility] [place] [facility] [address] [facility] [id number] [place] [address]- 5590 Apr, [facility] [place] [facility] [address] [id number] [place] [address]- 8253 Apr, [facility] [place] [facility] [address] [id number] [address]- 2496 Apr, [facility] [place] [facility] [address] [id number] [place] [address]- 9727 Apr, [facility] [place] [facility] [address] [id number] [place] [address]- 8926 Mar, [facility] [place] [facility] [address] [id number] [place] [address]- 5543 Mar, [facility] [place] [facility] [address] [id number] [place] [address]- 7580 Mar, [facility] [place] [facility] [address] [id number] [place] [address]- 6940 Mar, [facility] [place] [facility] [address] [id number] [place] [address]- 9310 Mar, [facility] [place] [facility] [address] [id number] [place] [address]- 0130 Mar, [facility] [place] [facility] [address] [id number] [place] [address]26 Mar, [facility] [place] [facility] [address] [id number] [place] [address]- 5743 Mar, [facility] [place] [facility] [address] [id number] [place] [address]- 1488 Mar, [facility] [place] [facility] [address] [id number] [place] [address]- 3781 Mar, [facility] [place] [facility] [address] [id number] [place] [address]- 0303 Mar, [facility] [place] [facility] [address] [id number] [address]- 9311 Mar, [facility] [place] [facility] [address] [id number], [place] [address]- 7957 Feb, [facility] [place] [facility] [address] [id number], [place] [address]- 3873 Jan, [facility] [place] [facility] [address] [id number] [place] [address]- 9056 Jan, [facility] [place] [facility] [address] [id number] [place] [address]- 5611 Jan, [facility] [place] [facility] [address] [id number] [place] [address]- 8346 Jan, [facility] [place] [facility] [address] [id number] [place] [address]- 1844 Jan, [facility] [address] [id number] [place] [address]- 5982 Dec, [facility] [place] [facility] [address] [id number] [place] [address]- 9707 Dec, [facility] [address] [id number] [place] [address]- 3380 Nov, [facility] [place] [facility] [address] [id number] [place] [address]- 4235 Nov, [facility] [address] [id number] [place] [address]- 4228 Nov, [facility] [place] [facility] [address] [id number] [place] [address]- 9776 October, [facility] [address] [id number] [place] [address]- 2591 October, [facility] [address] [id number] [place] [address]- 4420 October, [facility] [address] [id number] [place] [address]- 0619 October, [facility] [address] [id number] [place] [address]- 7491 October, [facility] [address] [id number] [place] [address]- 4581 October, [facility] [place] [facility] [address] [id number] [place] [address]- 1442 October, [facility] [place] [facility] [address] [id number] [place] [address]- 6351 Sep, [facility] [place] [facility] [address] [id number] [place] [address]- 4637 Sep, [facility] [place] [facility] [address] [id number] [place] [address]- 6257 Sep, [facility] [place] [facility] [address] [id number] [place] [address]- 8674 25 Sep, 2011 [facility] [place] [facility] [address] [id number] [place] [address]- 9350 24 Sep, 2011 [facility] [place] [facility] [address] [id number] [place] [address]- 5236 19 Sep, 2011 [facility] [place] [facility] [address] [id number] [place] [address]- 1476 17 Sep, 2011 [facility] [place] [facility] [address] [id number] [place] [address]- 6859 16 Sep, 2011 [facility] [place] [facility] [address] [id number] [place] [address]- 0683 16 Sep, 2011 [facility] [place] [facility] [address] [id number] [place] [address]- 6580 14 Sep, 2011 [facility] [place] [facility] [address] [id number] [place] [address]- 4933 13 Sep, 2011 [facility] [place] [facility] [address] [id number] [place] [address]- 8884 10 Sep, 2011 [facility] [place] [facility] [address] [id number] [place] [address]- 6612 09 Sep, 2011 [facility] [place] [facility] [address] [id number] [place] [address]- 5976 27 Aug, 2011 [facility] [place] [facility] [address] [id number] [place] [address]- 0317 12 Aug, 2011 [facility] [place] [facility] [address] [id number] [place] [address]- 7537 08 Aug, 2011 [facility] [place] [facility] [address] [id number] [place] [address]- 2907 06 Aug, 2011 [facility] [place] [facility] [address] [id number] [place] [address]- 8894 28 Jul, 2011 [facility] [place] [facility] [address] [id number] [place] [address]- 3848 22 Jul, 2011 [facility] [address] [id number] [place] [address]- 2406 16 Jul, 2011 [facility] [address] [id number] [place] [address]- 9806 15 Jul, 2011 [facility] [address] [id number] [place] [address]- 7376 14 Jul, 2011 [facility] [address] [id number] [place] [address]- 5649 10 Jul, 2011 [facility] [address] [id number] [place] [address]- 8248 30 Jun, 2011 [facility] [address] [id number] [place] [address]- 4018 Jun, [facility] [address] [id number] [place] [address]- 3529 Jun, [facility] [address] [id number] [place] [address]- 9458 Jun, [facility] [address] [facility] [id number] [place] [address]- 0815 Jun, [facility] [address] [facility] [id number] [place] [address]- 9557 May, [facility] [address] [id number] [place] [address]- 0316 May, [facility] [place] [facility] [address] [id number] [place] [address]- 2125 May, [facility] [place] [facility] [address] [id number] [place] [address]- 8097 14 May, 2011 [facility] [place] [facility] [address] [id number] [place] [address]- 3028 12 May, 2011 [facility] [place] [facility] [address] [facility] [id number] [place] [address]- 2105 07 May, 2011 [facility] [place] [facility] [address] [id number] [place] [address]- 6848 05 May, 2011 [facility] [place] [facility] [address] [id number] [place] [address]- 1911 Apr, [facility] [place] [facility] [address] [id number] [place] [address]- 5338 Apr, [facility] [place] [facility] [address] [id number] [place] [address]- 4835 Apr, [facility] [place] [facility] [address] [id number] [place] [address]- 2578 Apr, [facility] [place] [facility] [address] [id number] [place] [address]- 1813 Apr, [facility] [place] [facility] [address] [id number] [place] [address]- 5425 Apr, [facility] [place] [facility] [address] [id number] [place] [address]- 9131 Mar, [facility] [place] [facility] [address] [id number] [place] [address]- 9767 Mar, [facility] [place] [facility] [address] [id number] [place] [address]- 1710 Mar, [facility] [place] [facility] [address] [id number] [place] [address]- 4739 Mar, [facility] [place] [facility] [address] [id number] [place] [address]- 9816 Jan, [facility] [place] [facility] [address] [id number] [place] [address]- 0526 Dec, [facility] [place] [facility] [address] [id number] [place] [address]- 4896 Dec, [facility] [place] [facility] [address] [id number] [place] [address]- 6706 October, [facility] [place] [facility] [address] [id number] [place] [address]- 6618 20 Sep, 2010 [facility] [place] [facility] [address] [id number] [place] [address]- 2567 14 Sep, 2010 [facility] [place] [facility] [address] [id number] [place] [address]- 8956 17 Jul, 2010 [facility] [place] [facility] [address] [id number] [place] [address]- 6716 16 Jul, 2010 [facility] [place] [facility] [address] [id number] [place] [address]- 0346 31 May, 2010 [facility] [place] [facility] [address] [id number] [place] [address]- 2662 27 May, 2010 [facility] [place] [facility] [address] [id number] [place] [address]- 5209 May, [facility] [place] [facility] [address] [id number] [place] [address]- 9683 May, [facility] [place] [facility] [address] [id number] [place] [address]- 0033 Apr, [facility] [place] [facility] [address] [id number] [place] [address]- 5382 Apr, [facility] [place] [facility] [address] [id number] [place] [address]- 3821 Apr, [facility] [place] [facility] [address] [id number], [place] [address]- 5425 Apr, [facility] [place] [facility] [address] [id number], [place] [address]- 5320 Apr, [facility] [place] [facility] [address] [id number] [place] [address]- 9532 Mar, [facility] [place] [facility] [address] [id number], [place] [address]- 3526 14 Mar, 2010 [facility] [place] [facility] [address] [id number] [place] [address]- 9676 13 Mar, 2010 [facility] [place] [facility] [id number], [place] [address]- 4944 Mar, [facility] [address] [facility] [id number], [place] [address]- 5428 Jan, [facility] [address] [facility] [id number][place] 8566 Dec, [facility] [id number], [place] [address]- 0891 Sep, [facility] [address] [facility] [id number], [place] [address]- 7606 May, [facility] [id number] [place] [address]- 3163 May, [facility] [id number], [place] [address]- 1914 May, [facility] [id number] [place] [address]- 8285 Apr, [facility] [id number], [place] [address]- 3728 Apr, [facility] [id number], [place] [address]- 6688 Apr, [facility] [id number], [place] [address]- 2901 Apr, [facility] [id number], [place] [address]- 3591 Apr, [facility] [id number], [place] [address]- 8574 Mar, [facility] [id number] [address] Mar, [facility] [id number], [place] [address]- 5165 Jul, IMMUNIZATIONS No Known Immunizations SOCIAL HISTORY Never Assessed REASON FOR VISIT Refill Request PLAN OF CARE VITAL SIGNS MEDICATIONS Medication Instructions Dosage Frequency Start Date End Date Duration Status Ropinirole HCl 4 mg Orally at bedtime 1 tablet Active RESULTS No Results PROCEDURES No Known [...] 08/2017 Surgical History nephrectomy 03/2017 Hospitalization History [facility] 12/20/15 Hospitalization History [facility]- Abd pain 03/07/2017 Hospitalization [facility]- Abd pain 03/14/2017 Hospital[facility]- No bowel movement, rash 04/13/2017 Hospitalization History [facility]- Abd pain r/t kidney surgery on 04/17/2017 Hospitalization [facility]- Abd pain r/t kidney surgery on 04/18/2017 Hospitalization [facility]- Lower abd pain 04/30/2017 Hospitalization [facility]- Cannot urinate 05/30/2017 Hospitalization [facility]- Pancreatitis Sx 06/29/2017 Hospitalization [facility]- Stomach pain 07/22/2017 Hospital[facility]- Left side pain 08/12/2017 Hospital[facility]- Incision site infection 08/30/2017 Hospitalization History [facility]- Post Op Seroma/Hematoma Left Abdomen. Discharged 09/04/17- Dr Daniel 09/02/2017 Hospitalization [facility]- Right shoulder and back pain 2017
--- OUTSIDE RECORDS SUMMARY | 2017-12-27 10:08 | XMS REPORT ---
Author Author [facility] Address [address] [place] [address] Care Team Providers Care Customer [employer] Supervisor Name Role Phone CARMEN GIBBS Unavailable PROBLEMS Type Condition ICD9-CM Code AQU28-UB Code Onset Dates Condition Status SNOMED Code Problem Asthma J45.909 Active 471096945 Problem Atelectasis J98.11 Active 36799221 Problem Polydipsia R63.1 Active 53756209 Problem Chronic fatigue R53.82 Active 70920315 Problem Moderate episode of recurrent major depressive disorder F33.1 Active 046908251 Problem Generalized social phobia F40.11 Active 29450882 Problem Trichotillomania F63.3 Active 71070050 Problem Restless leg syndrome G25.81 Active 34494544 Problem Chronic post-traumatic stress disorder (PTSD) F43.12 Active 061523404 Problem History of renal cell carcinoma Z85.528 Active 833538830 Problem Nodule of left lung R91.1 Active 724543289 Problem Chronic tension-type headache, intractable G44.221 Active 410849227 Problem Hyperlipidemia, mixed E78.2 Active 154589213 Problem Hirsuties L68.0 Active 576245255 Problem Morbid (severe) obesity due to excess calories E66.01 Active 657740107 Problem FH: polycystic ovary Z84.2 Active 762601112 Problem Chronic pancreatitis K86.1 Active [id number] ALLERGIES No Information ENCOUNTERS Encounter Location Date Diagnosis [facility] [place] [address] [facility] [id number], [place] [address] Feb, [facility] [place] [address] [place] [id number], [place] [address] Dec, [facility] [place] [address] [facility] [id number], [place] [address] Dec, [facility] [place] [id number] [place] [address] 07242- 7016 Dec, Clostridium difficile colitis A04.72 ; Intractable vomiting with nausea, unspecified vomiting type R11.2 and BMI 45.0-49.9, adult Z68.42 [facility] [place] [address] [id number] [place] [address] 54124- 6542 Dec, [facility] [place] [id number] [place] [address] 29545- 3410 Nov, [facility] [place] [address] [id number] [place] [address] 41969- 8736 Nov, [place] [address] [address]- 7307 Nov, [place] [address] [id number] [place] [address] 22117- 8079 Nov, [facility] [address] [id number] [place] [address] 06102 -4703 Nov, [facility] [place] [address] [id number] [place] [address] 45840- 8987 Nov, Hyperlipidemia, mixed E78.2 [facility] [place] [address] [id number] [place] [address] 94587 -6313 Nov, Acute suppurative otitis media of right ear without spontaneous rupture of tympanic membrane, recurrence not specified H66.001 and BMI 45.0-49.9, adult Z68.42 [facility] [place] [id number] [place] [address] 59588- 7833 Nov, Hyperlipidemia, mixed E78.2 [facility] [place] [id number] [place] [address] 94155- 0254 Nov, [facility] [place] [id number] [place] [address] 82171- 8234 Nov, [facility] [place] [address] [id number] [place] [address] 99887- 9890 Nov, Nodule of left lung R91.1 [place] [id number] [place] [address] 81419- 5985 Nov, Medicare annual wellness visit, initial Z00.00 [...] adult Z68.42 and Encounter for immunization Z23 [place] [address] [id number] [place] [address] 15767- 1745 October, [place] [address] [id number] [place] [address] 41549- 8342 October, Nodule of left lung R91.1 [place] [address] [place] [id number] [place] [address] 74371- 3978 October, Nodule of left lung R91.1 [place] [address] [id number] [place] [address] 64457- 3347 October, Recurrent major depressive disorder, in partial remission F33.41 ; Restless leg syndrome G25.81 ; Generalized social phobia F40.11 ; Chronic post-traumatic stress disorder (PTSD) F43.12 ; BMI 45.0-49.9, adult Z68.42 and Trichotillomania F63.3 [place] [id number] [place] [address] 16971- 7631 October, [place] [address] [id number] [place] [address] 65744- 7089 Sep, Chronic fatigue R53.82 and BMI 45.0-49.9, adult Z68.42 [place] [address] [id number] [place] [address] 23809- 2327 Aug, [place] [address] [id number] [place] [address] 88914- 4708 Jul, Restless leg syndrome G25.81 and B12 deficiency E53.8 [place] [address] [place] [id number] [place] [address] 40379- 3455 Jul, [place] [address] [place] [id number] [place] [address] 99286- 7509 Jul, [place] [address] 79263- 7625 Jun, [place] [address] [id number] [place] [address] 11789- 2661 Jun, Fatigue, unspecified type R53.83 ; History of renal cell carcinoma Z85.528 ; Chronic pancreatitis K86.1 ; Restless leg syndrome G25.81 ; Dark urine R82.99 and BMI 45.0-49.9, adult Z68.42 [place] [address] [place] [id number] [place] [address] 85582- 1564 Jun, [place] [address] [id number] [place] [address] 65702- 6611 Jun, [place] [address] [id number] [place] [address] 15104- 0577 Jun, [place] [address] [id number] [place] [address] 61559- 6284 Jun, [place] [address] [place] [id number] [place] [address] 28826- 6275 May, Chronic post-traumatic stress disorder (PTSD) F43.12 ; Moderate episode of recurrent major depressive disorder F33.1 ; Trichotillomania F63.3 and Generalized social phobia F40.11 [place] [address] [id number] [place] [address] 87432- 9638 May, [place] [address] [id number] [place] [address] 86525- 8557 May, Chronic post-traumatic stress disorder (PTSD) F43.12 ; Moderate episode of recurrent major depressive disorder F33.1 ; Trichotillomania F63.3 and Generalized social phobia F40.11 [place] [id number] [place] [address] 66272- 3865 07 May, 2017 Hyperlipidemia, mixed E78.2 ; Morbid (severe) obesity due to excess calories E66.01 ; Chronic post-traumatic stress disorder (PTSD) F43.12 ; Moderate episode of recurrent major depressive disorder F33.1 ; Trichotillomania F63.3 and Generalized social phobia F40.11 [place] [address], [place] [address]- 3888 Apr, [place] [address] [place] [id number] [place] [address] 27677- 2071 29 Apr, 2017 Hyperlipidemia, mixed E78.2 ; Morbid (severe) obesity due to excess calories E66.01 ; Chronic post-traumatic stress disorder (PTSD) F43.12 ; Moderate episode of recurrent major depressive disorder F33.1 ; Trichotillomania F63.3 and Generalized social phobia F40.11 [place] [address], [place] [address]- 9441 Apr, Trichotillomania F63.3 ; Generalized social phobia F40.11 ; Chronic post-traumatic stress disorder (PTSD) F43.12 and Moderate episode of recurrent major depressive disorder F33.1 [place] [address], [place] [address]- 9841 Apr, [place] [address] [address]- 4108 Apr, [place] [address] [id number] [place] [address] 59329- 3654 Mar, Moderate episode of recurrent major depressive disorder F33.1 ; Trichotillomania F63.3 ; Chronic post-traumatic stress disorder (PTSD) F43.12 ; Generalized social phobia F40.11 and Restless leg syndrome G25.81 [place] [address] [id number] [place] [address] 03008- 2797 Mar, [facility] [place] [id number] [place] [address] 83561- 6003 Mar, [facility] [place] [id number] [place] [address] 78465- 7732 Feb, Left kidney mass N28.89 [facility] [place] [address] 74266- 4924 Jan, [facility] [place] [address] [id number] [place] [address] 82778- 3708 Dec, Polydipsia R63.1 ; Chronic pancreatitis K86.1 and Fatigue, unspecified type R53.83 [facility] [place] [address] [place] [id number] [place] [address] 99095- 8119 Nov, [facility] [place] [address] [place] [id number] [place] [address] 58012- 8242 Nov, [facility] [place] [address] [place] [id number] [place] [address] 15676- 1391 Nov, Headache around the eyes R51 [facility] [place] [address] [id number] [place] [address] 22142- 0534 Nov, [facility] [place] [address] [place] [address] 90212- 2449 October, STD exposure Z20.2 [facility] [place] [address] [id number] [place] [address] 91508- 2566 October, STD exposure Z20.2 [facility] [place] [id number] [place] [address] 01095- 0150 October, Chronic post-traumatic stress disorder (PTSD) F43.12 ; Generalized social phobia F40.11 ; Trichotillomania F63.3 and Restless leg syndrome G25.81 [facility] [place] [id number] [place] [address] 29600- 4421 October, [place] [id number] [place] [address] 22960- 7993 Sep, [place] [address] [id number] [place] [address] 92890- 8228 17 Aug, 2016 [place] [address] [id number] [place] [address] 18221- 2803 15 Aug, 2016 [place] [address] 19390- 8174 08 Aug, 2016 Neck mass R22.1 [place] [address] 53777- 0781 Aug, Atelectasis J98.11 [place] [address] 55121- 6277 28 Jul, 2016 Hyperlipidemia, mixed E78.2 ; Atypical pneumonia J18.9 and Neck mass R22.1 [place] [address] [place] [id number] [place] [address] 51987- 4096 15 Jul, 2016 Hemoptysis R04.2 [place] [id number] [place] [address] 32827- 7215 08 Jul, 2016 Acute non-recurrent pansinusitis J01.40 ; Hemoptysis R04.2 ; Polydipsia R63.1 and Malaise R53.81 [facility] [place] [id number] [place] [address] 89829 -1114 May, Other viral agents as the cause of diseases classified elsewhere B97.89 and Acute upper respiratory infection, unspecified J06.9 [facility]ALK IN [place] [id number] [place] [address] 85136 -1535 Mar, Nausea R11.0 [facility] IN [place] [id number] [place] [address] 45979 -3972 Dec, Hives L50.[address] 17135- 6327 14 Dec, 2015 [facility] W[facility] IN [place] [address], [place] [address] -9086 10 Dec, 2015 Cutaneous abscess of limb, unspecified L02.419 ; Cellulitis of unspecified part of limb L03.119 ; Encounter for incision and drainage procedure Z01.89 and Encounter for recheck of abscess following incision and drainage Z09 [facility] WALK IN [address], [place] [address] 09 Dec, 2015 Abscess of leg, right L02.415 [place] [address] [place] [address] 62946- 3059 08 Dec, 2015 Cellulitis of unspecified part of limb L03.119 and Cutaneous abscess of limb, unspecified L02.419 [place] [address], [place] [address]- 9561 Dec, [place] [address] [place] [id number] [place] [address] 78088- 8851 Dec, [facility] IN [place] [address] [place] [id number] [place] [address] 27264 -6474 Aug, [place] [address] [place] [id number] [place] [address] 39742- 2896 Aug, [facility] WALK IN [address] [place] [address] 76546 -8662 Jul, Pain in unspecified wrist M25.539 and Back pain, thoracic M54.6 [facility] WALK IN [address], [place] [address]13 Jun, Strain of right wrist, initial encounter S66.911A [place] [address] [place] [id number] [place] [address] 36798- 4349 11 Jun, 2015 Chronic pancreatitis, unspecified pancreatitis type K86.1 ; Hirsuties L68.0 ; Morbid (severe) obesity due to excess calories E66.01 ; Chronic pancreatitis K86.1 and Asthma J45.909 [place] [address] [place] [id number] [place] [address] 68582- 1320 May, [facility] [place] [address] [place] [id number] [place] [address] 25372- 9681 May, Hyperlipidemia, mixed E78.2 and Muscle spasm of back M62.830 [facility] [place] [address] [place] [place] [id number] [place] [address] 67260- 9547 Apr, [facility] [place] [address] 24243- 1472 Apr, Torticollis M43.6 [facility] [place] [address] [place] [id number] [place] [address] 33750- 7394 Apr, Right-sided thoracic back pain M54.6 [facility] [place] [address] [place] [id number] [place] [address] 98938- 9205 Mar, Rash R21 [facility] [place] [address] 70453- 3323 Mar, [facility] [place] [address] [place] [id number] [place] [address] 51533- 2130 Jan, [facility] [place] [address] [place] [id number] [place] [address] 02682- 5564 Dec, [facility] [place] [address] [place] [id number] [place] [address] 44971- 8977 Dec, Urinary frequency 788.41 and Nocturia more than twice per night 788.43 [facility] [place] [address] [place] [place] [id number] [place] [address] 03670- 0998 Nov, [facility] [place] [address] [place] [id number] [place] [address] 42251- 9693 Nov, [facility] [place] [address] [place] [id number] [place] [address] 64112- 2772 Nov, Abdominal pain 789.00 [facility] [place] [address] [place] [id number] [place] [address] 79978- 4384 October, TDAP DX V06.1 [facility] [place] [address] [facility] [id number] [address]- 7239 October, [facility] [place] [address], [place] [address]- 4939 October, Disturbance of skin sensation 782.0 ; Wrist pain, right 719.43 ; Hyperlipidemia 272.4 and Skin lesion of face 709.9 [facility] [place] [address] [facility] [id number], [place] [address]- 2092 Sep, [facility] [place] [address] [facility] [id number], [place] [address]- 6327 Sep, [facility] [place] [id number], [place] [address]- 7583 Aug, [facility] [place] [address], [place] [address]- 1913 Aug, [facility] [place] [address], [place] [address]- 3708 Aug, [facility] [place] [id number], [place] [address]- 4849 23 Aug, 2014 [facility] [place] [address], [place] [address]- 9022 Aug, [facility] [place] [address], [place] [address]- 5509 16 Aug, 2014 [facility] [place] [id number], [place] [address]- 1423 14 Aug, 2014 [facility] [address] [facility] [id number], [place] [address]- 4039 14 Aug, 2014 [facility] [place] [id number], [place] [address]- 6575 Aug, [facility] [id number], [place] [address]- 8332 Aug, [facility] [place] [address], [place] [address]- 2373 Aug, [facility] [place] [facility] [address] [id number] [place] [address]- 8977 Aug, [facility] [place] [facility] [address] [id number] [place] [address]- 3131 Aug, [facility] [place] [facility] [address] [id number] [place] [address]- 0393 Aug, [facility] [place] [facility] [address] [id number] [place] [address]- 8755 Jul, [facility] [place] [facility] [address] [id number] [place] [address]- 4787 Jul, [facility] [place] [facility] [address] [id number] [place] [address]- 2006 Jul, [facility] [place] [facility] [address] [id number] [place] [address]- 4276 Jul, [facility] [place] [facility] [address] [id number] [place] [address]- 9740 Jul, [facility] [place] [facility] [address] [id number] [place] [address]- 2422 Jul, [facility] [place] [facility] [address] [id number] [place] [address]- 3380 Jun, [facility] [place] [facility] [address] [id number] [place] [address]- 6429 Jun, [facility] [place] [facility] [address] [id number] [place] [address]- 7399 Jun, [facility] [place] [facility] [address] [id number] [place] [address]- 6014 Jun, [facility] [place] [facility] [address] [id number] [place] [address]- 9909 Jun, [facility] [place] [facility] [address] [id number] [place] [address]- 7469 Jun, [facility] [place] [facility] [address] [id number] [place] [address]- 4338 15 Jun, 2014 [facility] [place] [facility] [address] [id number] [place] [address]- 9655 15 Jun, 2014 [facility] [place] [facility] [address] [id number] [place] 9746 May, [facility] [place] [facility] [address] [id number] [place] [address]- 1026 May, [facility] [place] [facility] [address] [id number] [place] [address]- 9831 May, [facility] [place] [facility] [address] [id number] [place] [address]- 2044 May, [facility] [place] [facility] [address] [id number] [place] [address] May, [facility] [place] [facility] [address] [id number] [place] [address] May, [facility] [place] [facility] [address] [id number] [place] [address] May, [facility] [place] [facility] [address] [id number] [place] [address] May, [facility] [place] [facility] [address] [id number] [place] [address] May, [facility] [place] [facility] [address] [id number] [place] [address] May, [facility] [place] [facility] [address] [id number] [place] [address] May, [facility] [place] [facility] [address] [id number] [place] [address] May, [facility] [place] [facility] [address] [id number] [place] [address] Apr, [facility] [place] [facility] [address] [id number], [place] [address] Apr, [facility] [place] [facility] [address] [id number] [place] [address] Apr, [facility] [place] [facility] [address] [id number], [place] [address] Apr, [facility] [place] [facility] [address] [id number] [place] [address] Apr, [facility] [place] [facility] [address] [id number] [place] [address] Apr, [facility] [place] [facility] [address] [id number] [place] [address] Apr, [facility] [place] [facility] [address] [id number] [place] [address] Apr, [facility] [place] [facility] [address] [id number] [place] [address] Apr, [facility] [place] [facility] [address] [id number] [place] [address] Apr, [facility] [place] [facility] [address] [id number] [place] [address] Apr, [facility] [place] [facility] [address] [id number] [place] [address] Apr, [facility] [place] [facility] [address] [id number], [place] [address] Mar, [facility] [place] [facility] [address] [id number], [place] [address] Mar, [facility] [place] [facility] [address] [id number], [place] [address] Mar, [facility] [place] [facility] [address] [id number], [place] [address] Mar, [facility] [place] [facility] [address] [id number] [place] [address] 10 Feb, 2014 [facility] [place] [facility] [address] [id number] [place] [address] 10 Feb, 2013 [facility] [place] [facility] [address] [id number] [place] [address] 05 Feb, 2013 [facility] [place] [facility] [address] [id number] [place] [address] Feb, 2013 [facility] [place] [facility] [address] [id number] [place] [address] 05 Feb, 2013 [facility] [place] [facility] [address] [id number] [place] [address] Feb, 2013 [facility] [place] [facility] [address] [id number] [place] [address] Jan, [facility] [place] [facility] [address] [id number] [place] [address] Jan, [facility] [place] [facility] [address] [id number] [place] [address] Jan, [facility] [place] [facility] [address] [address] [id number] [place] [address] Jan, [facility] [place] [facility] [address] [id number] [place] [address] 5574 Jan, [facility] [place] [facility] [address] [id number] [place] [address]- 2028 Jan, [facility] [place] [facility] [address] [id number] [place] [address]- 8269 Jan, [facility] [place] [facility] [address] [id number] [place] [address]- 3707 Jan, [facility] [place] [facility] [address] [id number] [place] [address]- 1864 Jan, [facility] [place] [facility] [address] [id number] [place] [address]- 2643 Jan, [facility] [place] [facility] [address] [id number] [place] [address]- 6720 Jan, [facility] [place] [facility] [address] [id number] [place] [address]- 5235 Jan, [facility] [place] [facility] [address] [id number] [place] [address]- 3312 Jan, [facility] [place] [facility] [address] [id number] [place] [address]- 3997 Jan, [facility] [place] [facility] [address] [id number] [place] [address]- 2232 Dec, [facility] [place] [facility] [address] [id number] [place] [address]- 0828 Dec, [facility] [place] [facility] [address] [id number] [place] [address]- 1731 Dec, [facility] [place] [facility] [address] [id number] [place] [address]- 5463 Dec, [facility] [place] [facility] [address] [id number] [place] [address]- 8807 Nov, [facility] [place] [facility] [address] [id number] [place] [address]- 5026 Nov, [facility] [place] [facility] [address] [id number] [place] [address]- 5761 Nov, [facility] [place] [facility] [address] [id number] [place] [address]- 5705 Nov, [facility] [place] [facility] [address] [id number] [place] [address]- 7418 Nov, [facility] [place] [facility] [address] [id number] [place] [address]- 9442 October, [facility] [place] [facility] [address] [id number] [place] [address]- 2036 October, [facility] [place] [facility] [address] [id number] [place] [address]- 5794 October, [facility] [place] [facility] [address] [id number] [place] [address]- 6430 October, [facility] [place] [facility] [address] [id number] [place] [address]- 8098 October, [facility] [place] [facility] [address] [id number] [place] [address]- 3799 October, [facility] [place] [facility] [address] [id number] [place] [address]- 9402 October, [facility] [place] [facility] [address] [id number] [place] [address]- 4795 October, [facility] [place] [facility] [address] [id number] [place] [address]- 3028 October, [facility] [place] [facility] [address] [id number] [place] [address]- 0622 October, [facility] [place] [facility] [address] [id number] [place] [address]- 5338 October, [facility] [place] [facility] [address] [id number] [place] [address]- 5118 October, [facility] [place] [facility] [address] [id number] [place] [address]- 3793 October, [facility] [place] [facility] [address] [id number] [place] [address]- 1441 October, [facility] [place] [facility] [address] [id number] [place] [address]- 6066 Sep, [facility] [place] [facility] [address] [id number] [place] [address]- 7130 Sep, [facility] [place] [facility] [address] [id number] [place] [address]- 7473 Sep, [facility] [place] [facility] [address] [id number] [place] [address]- 9233 Sep, [facility] [place] [facility] [address] [id number] [place] [address]- 0283 Sep, [facility] [place] [facility] [address] [id number] [place] [address]- 9159 Sep, [facility] [place] [facility] [address] [id number] [place] [address]- 0600 Sep, [facility] [place] [facility] [address] [id number] [place] [address]- 0441 Sep, [facility] [place] [facility] [address] [id number] [place] [address]- 3068 Sep, [facility] [place] [facility] [address] [id number] [place] [address]- 2688 Sep, [facility] [place] [facility] [address] [id number] [place] [address]- 5288 Sep, [facility] [place] [facility] [address] [id number] [place] [address]- 8649 Sep, [facility] [place] [facility] [address] [id number] [place] [address]- 3081 Sep, [facility] [place] [facility] [address] [id number] [place] [address]- 3115 Sep, [facility] [place] [facility] [address] [id number] [place] [address]- 9373 Sep, [facility] [place] [facility] [address] [id number] [place] [address]- 3620 Aug, [facility] [place] [facility] [address] [id number] [place] [address]- 5102 Aug, [facility] [place] [facility] [address] [id number] [place] [address]- 9362 Aug, [facility] [place] [facility] [address] [id number] [place] [address]- 0334 Aug, [facility] [place] [facility] [address] [id number] [place] [address]- 0368 Jul, [facility] [place] [facility] [address] [id number], [place] [address]- 5409 Jul, [facility] [address] [id number] [place] [address]- 1287 Jul, [facility] [address] [id number] [place] [address]175 Jul, [facility] [address] [id number] [place] [address]- 0195 15 Jun, 2013 [facility] [place] [facility] [address] [id number] [place] [address]- 8018 Jun, [facility] [address] [id number] [place] [address]- 8480 Jun, [facility] [address] [id number] [place] [address]- 5478 Jun, [facility] [address] [facility] [id number] [place] [address]- 7763 Jun, [facility] [address] [id number] [place] [address]- 4034 Jun, [facility] [address] [facility] [id number] [place] [address]- 1002 Jun, [facility] [address] [facility] [id number] [place] [address]- 5343 Jun, [facility] [address] [id number] [place] [address]- 3127 May, [facility] [place] [facility] [address] [id number] [place] [address]- 1718 May, [facility] [place] [facility] [address] [id number] [place] [address]- 5688 18 May, 2013 [facility] [place] [facility] [address] [facility] [id number] [place] [address]- 4659 18 May, 2013 [facility] [address] [facility] [id number] [place] [address]- 9748 17 May, 2013 [facility] [place] [facility] [address] [place] [address] [id number] [place] [id number] 17 May, 2013 [facility] [address] [id number] [place] [address]- 2959 17 May, 2013 [facility] [address] [id number] [place] 1505 17 May, 2013 [facility] [address] [id number] [place] [address]- 8572 16 May, 2013 [facility] [address] [id number] [place] 3565 16 May, 2013 [facility] [address] [id number] [place] [address]- 7549 14 May, 2013 [facility] [address] [id number] [place] [address]- 6088 14 May, 2013 [facility] [address] [id number] [place] [address]- 3513 13 May, 2013 [facility] [address] [id number] [place] [address]- 9552 13 May, 2013 [facility] [address] [id number] [place] [address]- 8624 12 May, 2013 [facility] [address] [id number] [place] [address]- 5178 12 May, 2013 [facility] [address] [id number] [place] [address]- 3871 11 May, 2013 [facility] [address] [id number] [place] 1478 11 May, 2013 [facility] [address] [id number] [place] [address]- 3025 Apr, [facility] [address] [id number] [place] 1826 Apr, [facility] [address] [id number] [place] [address]- 5544 Apr, [facility] [address] [id number] [place] [address]- 1870 Apr, [facility] [place] [facility] [address] [id number] [place] [address]- 3275 Aug, [facility] [address] [id number] [place] [address]- 2712 Aug, [facility] [place] [facility] [address] [id number] [place] [address]- 3407 Aug, [facility] [address] [id number] [place] 3245 Aug, [facility] [place] [facility] [address] [id number] [place] [address]- 8428 Jul, [facility] [address] [id number] [place] [address]- 4415 Jun, [facility] [address] [id number] [place] [address]- 6085 Jun, [facility] [address] [id number] [place] [address]- 2737 Jun, [facility] [address] [id number] [place] [address]- 4027 Jun, [facility] [address] [id number] [place] [address]- 1629 May, [facility] [place] [facility] [address] [id number], [place] [address]- 7383 May, [facility] [place] [facility] [address] [id number] [place] [address]- 0277 May, [facility] [place] [facility] [address] [id number] [place] [address]- 8976 May, [facility] [place] [facility] [address] [id number] [place] [address]- 1257 May, [facility] [place] [facility] [address] [id number], [place] [address]- 3594 May, [facility] [place] [facility] [address] [id number] [place] [address]- 1678 May, [facility] [place] [facility] [address] [id number], [place] [address]- 5645 Apr, [facility] [place] [facility] [address] [id number] [place] [address]- 9535 Apr, [facility] [place] [facility] [address] [id number], [place] [address]- 2408 Apr, [facility] [place] [facility] [address] [id number] [place] [address], [place] [address]- 9424 Apr, [facility] [place] [facility] [address] [id number], [place] [address]- 8131 Apr, [facility] [place] [facility] [address] [facility] [id number] [place] [address]- 1357 Apr, [facility] [place] [facility] [address] [id number], [place] [address]- 6653 Apr, [facility] [place] [facility] [address] [id number], [place] [address]- 1863 Mar, [facility] [place] [facility] [address] [facility] [id number], [place] [address]- 9858 Mar, [facility] [place] [facility] [address] [id number], [place] [address]- 9672 Mar, [facility] [place] [facility] [address] [id number], [place] [address]- 4632 Mar, [facility] [place] [facility] [address] [id number], [place] [address]- 3939 Mar, [facility] [place] [facility] [address] [facility] [id number], [place] [address]- 1339 Mar, [facility] [place] [facility] [address] [facility] [id number], [place] [address]- 0069 Mar, [facility] [place] [facility] [address] [id number] [place] [address] 254 Mar, [facility] [place] [facility] [address] [id number] [place] [address]- 1536 Mar, [facility] [place] [facility] [address] [id number] [place] [address] 2546 Mar, [facility] [place] [facility] [address] [id number] [place] [address]- 4169 Mar, [facility] [place] [facility] [address] [id number] [place] [address]- 3150 Mar, [facility] [place] [facility] [address] [id number] [place] [address]- 8895 Feb, [facility] [place] [facility] [address] [id number] [place] [address]- 4809 Jan, [facility] [place] [facility] [address] [id number] [place] [address]- 9603 Jan, [facility] [place] [facility] [address] [id number] [place] [address]- 8470 Jan, [facility] [place] [facility] [address] [id number] [place] [address]- 1407 Jan, [facility] [place] [facility] [address] [id number] [place] [address]- 7621 Jan, [facility] [place] [facility] [address] [id number] [place] [address]- 9160 Dec, [facility] [place] [facility] [address] [id number] [place] [address]- 0335 Dec, [facility] [place] [facility] [address] [id number] [place] [address]- 3246 Nov, [facility] [place] [facility] [address] [id number] [place] [address]- 2546 Nov, [facility] [place] [facility] [address] [id number] [place] [address]- 3671 Nov, [facility] [address] [id number] [place] [address]- 1828 October, [facility] [address] [id number] [place] [address]- 3207 October, [facility] [address] [id number] [place] [address]- 1654 October, [facility] [address] [id number] [place] [address]- 0389 October, [facility] [address] [id number] [place] [address]- 5769 October, [facility] [address] [id number] [place] [address]- 0344 October, [facility] [address] [id number] [place] [address]- 2631 October, [facility] [address] [id number] [place] [address]- 4119 Sep, [facility] [place] [facility] [address] [id number] [place] [address]- 6180 Sep, [facility] [place] [facility] [address] [id number] [place] [address]- 3798 Sep, [facility] [place] [facility] [address] [id number] [place] [address]- 8703 25 Sep, 2011 [facility] [place] [facility] [address] [id number], [place] [address]- 3117 24 Sep, 2011 [facility] [place] [facility] [address] [id number] [place] [address]- 3217 19 Sep, 2011 [facility] [place] [facility] [address] [id number] [place] [address]- 1237 17 Sep, 2011 [facility] [place] [facility] [address] [id number] [place] [address]- 9038 16 Sep, 2011 [facility] [place] [facility] [address] [id number] [place] [address]- 2666 16 Sep, 2011 [facility] [address] [id number] [place] [address]- 4626 14 Sep, 2011 [facility] [place] [facility] [address] [id number] [place] [address] 2546 13 Sep, 2011 [facility] [place] [facility] [address] [id number] [place] [address]- 7856 10 Sep, 2011 [facility] [place] [facility] [address] [id number] [place] [address] 2546 09 Sep, 2011 [facility] [place] [facility] [address] [id number] [place] [address]- 2315 27 Aug, 2011 [facility] [place] [facility] [address] [id number] [place] [address]- 1472 12 Aug, 2011 [facility] [place] [facility] [address] [id number] [place] [address]- 3486 08 Aug, 2011 [facility] [place] [facility] [address] [id number] [place] [address]- 8834 06 Aug, 2011 [facility] [place] [facility] [address] [id number] [place] [address]- 7850 28 Jul, 2011 [facility] [place] [facility] [address] [id number] [place] [address]- 7620 22 Jul, 2011 [facility] [place] [facility] [address] [id number] [place] [address] 2546 16 Jul, 2011 [facility] [place] [facility] [address] [id number] [place] [address] 2546 15 Jul, 2011 [facility] [place] [facility] [address] [id number] [place] [address]- 4036 14 Jul, 2011 [facility] [place] [facility] [address] [id number] [place] [address] 2546 10 Jul, 2011 [facility] [place] [facility] [address] [id number] [place] [address]- 5364 Jun, [facility] [place] [facility] [address] [id number] [place] [address]- 2824 Jun, [facility] [place] [facility] [address] [id number] [place] [address]- 9236 Jun, [facility] [place] [facility] [address] [id number] [place] [address]- 0946 Jun, [facility] [place] [facility] [address] [id number] [place] [address]- 0302 Jun, [facility] [place] [facility] [address] [id number] [place] [address]- 8297 May, [facility] [place] [facility] [address] [id number] [place] [address]- 2343 May, [facility] [place] [facility] [address] [id number] [place] [address]- 9330 May, [facility] [place] [facility] [address] [id number] [place] [address]- 6146 May, [facility] [place] [facility] [address] [id number] [place] [address]- 7679 May, [facility] [place] [facility] [address] [id number] [place] [address]- 7550 May, [facility] [place] [facility] [address] [id number], [place] [address]- 9848 May, [facility] [place] [facility] [address] [id number], [place] [address]- 7502 15 Apr, 2011 [facility] [place] [facility] [address] [id number] [place] [address]- 3425 15 Apr, 2011 [facility] [place] [facility] [address] [id number], [place] [address]- 9189 07 Apr, 2011 [facility] [place] [facility] [address] [id number] [place] [address]- 2975 07 Apr, 2011 [facility] [place] [facility] [address] [id number] [place] [address]- 5904 Apr, [facility] [place] [facility] [address] [id number] [place] [address]- 9169 Apr, [facility] [place] [facility] [address] [id number] [place] [address]- 8494 Mar, [facility] [place] [facility] [address] [id number] [place] [address]- 4279 Mar, [facility] [place] [facility] [address] [id number] [place] [address]- 7252 Mar, [facility] [place] [facility] [address] [id number] [place] 9304 Mar, [facility] [place] [facility] [address] [id number] [place] [address]- 7745 Jan, [facility] [place] [facility] [address] [id number] [place] [address]- 2285 Dec, [facility] [place] [facility] [address] [id number] [place] [address]- 6485 Dec, [facility] [place] [facility] [address] [id number] [place] [address]- 6998 October, [facility] [place] [facility] [address] [id number] [place] [address]- 7338 Sep, [facility] [place] [facility] [address] [id number] [place] [address]- 6224 14 Sep, 2010 [facility] [place] [facility] [address] [id number] [place] [address]- 0106 17 Jul, 2010 [facility] [place] [facility] [address] [id number] [place] [address]- 3167 16 Jul, 2010 [facility] [place] [facility] [address] [id number] [place] 3966 May, [facility] [place] [facility] [address] [id number] [place] [address] May, [facility] [place] [facility] [address] [id number] [place] [address] 08 May, 2010 [facility] [place] [facility] [address] [id number] [place] [address] May, [facility] [place] [facility] [address] [id number] [place] [address] Apr, [facility] [place] [facility] [address] [id number] [place] [address] Apr, [facility] [address] [id number] [place] [address] Apr, [facility] [place] [facility] [address] [id number] [place] [address] Apr, [facility] [address] [id number] [place] [address] Apr, [facility] [address] [id number] [place] [address] Mar, [facility] [place] [facility] [address] [id number] [place] [address] 14 Mar, 2010 [facility] [place] [facility] [address] [id number] [place] [address] Mar, [facility] [place] [facility] [address] [id number] [place] [address] Mar, [facility] [place] [facility] [address] [id number], [place] [address] Jan, [facility] [place] [facility] [address] [id number] [place] [address] 15 Dec, 2009 [facility] [place] [facility] [address] [id number] [place] [address] 10 Sep, 2009 [facility] [place] [facility] [address] [id number] [place] [address] 08 May, 2009 [facility] [place] [facility] [address] [id number] [address] May, [facility] [place] [id number] [address] May, [facility] [place] [id number] [address] Apr, [facility] [place] [id number], [place] [address] Apr, [facility] [place] [id number] [place] [address] Apr, [facility] [place] [id number] [place] [address] Apr, [facility] [place] [id number] [place] [address] Apr, [facility] [place] [id number] [address] Mar, [facility] [place] [id number], [place] [address] Mar, [facility] [place] [id number], [place] [address] Jul, IMMUNIZATIONS No Known Immunizations SOCIAL HISTORY [...] 08/2017 Surgical History nephrectomy 03/2017 Hospitalization History Cellulitis-[facility] 12/20/15 Hospitalization History [facility]- Abd pain 03/07/2017 [facility]- Abd pain 03/14/2017 Hospital[facility]- No bowel movement, rash 04/13/2017 Hospitalization [facility]- Abd pain r/t kidney surgery on 04/17/2017 Hospitalization History [facility]- Abd pain r/t kidney surgery on 04/18/2017 Hospitalization History [facility]- Lower abd pain 04/30/2017 [facility]ization [facility]- Cannot urinate 05/30/2017 Hospitalization History [facility]- Pancreatitis Sx 06/29/2017 [facility]- Stomach pain 07/22/2017 [facility]- Left side pain 08/12/2017 Hospitalization History [facility]- Incision site infection 08/30/2017 Hospitalization History [facility]- Post Op Seroma/Hematoma Left Abdomen. Discharged 09/04/17- Dr Daniel 09/02/2017 Hospitalization History [facility]- Right shoulder and back pain 2017 Hospitalization History [facility]- Shoulder/Back pain 11/11/2017 Hospitalization History [facility]- Right shoulder blade pain 12/04/2017 Hospitalization History [facility]- C-Diff 12/13/2017
--- OUTSIDE RECORDS SUMMARY | 2017-12-27 10:10 | XMS REPORT ---
Author Author SAI CARMEN [facility] Address [address] [place] [address] Care Team Providers Care Digital Program Manager Name Role Phone CARMEN GIBBS Unavailable PROBLEMS Type Condition ICD9-CM Code MWQ47-MW Code Onset Dates Condition Status SNOMED Code Problem Asthma J45.909 Active 989475955 Problem Atelectasis J98.11 Active 64837881 Problem Polydipsia R63.1 Active 14806331 Problem Chronic fatigue R53.82 Active 87999690 Problem Moderate episode of recurrent major depressive disorder F33.1 Active 028550944 Problem Generalized social phobia F40.11 Active 54498327 Problem Trichotillomania F63.3 Active 29673109 Problem Restless leg syndrome G25.81 Active 36626894 Problem Chronic post-traumatic stress disorder (PTSD) F43.12 Active 094556759 Problem History of renal cell carcinoma Z85.528 Active 124032474 Problem Nodule of left lung R91.1 Active 331333368 Problem Chronic tension-type headache, intractable G44.221 Active 820128201 Problem Hyperlipidemia, mixed E78.2 Active 032520151 Problem Hirsuties L68.0 Active 550204298 Problem Morbid (severe) obesity due to excess calories E66.01 Active 363671141 Problem FH: polycystic ovary Z84.2 Active 260345321 Problem Chronic pancreatitis K86.1 Active 159558559 ALLERGIES No Information ENCOUNTERS Encounter Location Date Diagnosis [facility] [address] [facility] [id number] [address] Feb, [facility] [address] [facility] [id number] [address] 65[address] Dec, [facility] [address] [facility] [id number] [address] Dec, Clostridium difficile colitis A04.72 ; Intractable vomiting with nausea, unspecified vomiting type R11.2 and BMI 45.0-49.9, adult Z68.42 [facility] [id number] [place] [address] 30368- 5009 Dec, [facility] [id number] [place] [address] 73845- 1829 Nov, [facility] [id number] [place] [address] 13680- 4173 Nov, [facility] [id number] [place] [address] 41666- 2714 Nov, [facility] [address] 26733- 5540 Nov, [facility] [id number] [place] [address] 76083 -7437 Nov, [facility] [id number] [place] [address] 62062- 7459 Nov, Hyperlipidemia, mixed E78.2 [facility] [id number] [place] [address] 06230 -4874 Nov, Acute suppurative otitis media of right ear without spontaneous rupture of tympanic membrane, recurrence not specified H66.001 and BMI 45.0-49.9, adult Z68.42 [facility] [id number] [place] [address] 51340- 9753 Nov, Hyperlipidemia, mixed E78.2 [facility] [id number] [place] [address] 93454- 9293 Nov, [facility] [id number] [place] [address] 65667- 4453 Nov, [facility] [id number] [place] [address] 83468- 2809 Nov, Nodule of left lung R91.1 [facility] [id number] [place] [address] 32250- 4382 Nov, Medicare annual wellness visit, initial Z00.00 [...] adult Z68.42 and Encounter for immunization Z23 [place] [id number] [place] [address] 23569- 0969 October, [place] [id number] [place] [address] 08218- 0432 October, Nodule of left lung R91.1 [place] [id number] [place] [address] 20137- 9701 October, Nodule of left lung R91.1 [place] [id number] [place] [address] 44845- 7183 October, Recurrent major depressive disorder, in partial remission F33.41 ; Restless leg syndrome G25.81 ; Generalized social phobia F40.11 ; Chronic post-traumatic stress disorder (PTSD) F43.12 ; BMI 45.0-49.9, adult Z68.42 and Trichotillomania F63.3 [place] [id number] [place] [address] 00369- 4930 October, [place] [id number] [place] [address] 75775- 3898 Sep, Chronic fatigue R53.82 and BMI 45.0-49.9, adult Z68.42 [place] [id number] [place] [address] 95462- 7303 Aug, [place] [id number] [place] [address] 45891- 6945 Jul, Restless leg syndrome G25.81 and B12 deficiency E53.8 [place] [address] [place] [address] 36356- 6042 Jul, [facility] [id number] [place] [address] 04498- 4686 Jul, [place] [id number] [place] [address] 78636- 2110 Jun, [place] [id number] [place] [address] 47976- 8975 Jun, Fatigue, unspecified type R53.83 ; History of renal cell carcinoma Z85.528 ; Chronic pancreatitis K86.1 ; Restless leg syndrome G25.81 ; Dark urine R82.99 and BMI 45.0-49.9, adult Z68.42 [place] [id number] [place] [address] 22912- 2113 Jun, [place] [id number] [place] [address] 93415- 6966 Jun, [place] [id number] [place] [address] 98542- 4692 Jun, [place] [id number] [place] [address] 30556- 4270 Jun, [place] [address] [place] [address] 13279- 9760 May, Chronic post-traumatic stress disorder (PTSD) F43.12 ; Moderate episode of recurrent major depressive disorder F33.1 ; Trichotillomania F63.3 and Generalized social phobia F40.11 [place] [id number] [place] [address] 78992- 0650 May, [place] [id number] [place] [address] 16267- 6433 May, Chronic post-traumatic stress disorder (PTSD) F43.12 ; Moderate episode of recurrent major depressive disorder F33.1 ; Trichotillomania F63.3 and Generalized social phobia F40.11 [place] [address] [address]- 6391 May, Hyperlipidemia, mixed E78.2 ; Morbid (severe) obesity due to excess calories E66.01 ; Chronic post-traumatic stress disorder (PTSD) F43.12 ; Moderate episode of recurrent major depressive disorder F33.1 ; Trichotillomania F63.3 and Generalized social phobia F40.11 [place] [id number] [place] [address] 48995- 8381 30 Apr, 2017 [place] [id number] [place] [address] 22836- 9111 Apr, Hyperlipidemia, mixed E78.2 ; Morbid (severe) obesity due to excess calories E66.01 ; Chronic post-traumatic stress disorder (PTSD) F43.12 ; Moderate episode of recurrent major depressive disorder F33.1 ; Trichotillomania F63.3 and Generalized social phobia F40.11 [place] [id number] [place] [address] 13589- 9221 Apr, Trichotillomania F63.3 ; Generalized social phobia F40.11 ; Chronic post-traumatic stress disorder (PTSD) F43.12 and Moderate episode of recurrent major depressive disorder F33.1 [place] [address] [address]- 0860 15 Apr, 2017 [place] [address] [place] [address] 95792- 3771 Apr, [place] [address] [address]- 3742 Mar, Moderate episode of recurrent major depressive disorder F33.1 ; Trichotillomania F63.3 ; Chronic post-traumatic stress disorder (PTSD) F43.12 ; Generalized social phobia F40.11 and Restless leg syndrome G25.81 [place] [address] [address]- 0389 Mar, [place] [id number] [place] [address] 82352- 9441 Mar, [facility] [id number] [place] [address] 98351- 3690 Feb, Left kidney mass N28.89 [facility] [id number] [place] [address] 78352- 5147 Jan, [facility] [address] 42146- 1011 Dec, Polydipsia R63.1 ; Chronic pancreatitis K86.1 and Fatigue, unspecified type R53.83 [facility] [id number] [place] [address] 96182- 0796 Nov, [facility] [id number] [place] [address] 43489- 3640 Nov, [facility] [id number] [place] [address] 98055- 9831 Nov, Headache around the eyes R51 [facility] [id number] [place] [address] 12000- 4622 Nov, [facility] [id number] [place] [address] 02013- 8317 October, STD exposure Z20.2 [facility] [id number] [place] [address] 57305- 1890 October, STD exposure Z20.2 [facility] [id number] [place] [address] 76867- 4505 October, Chronic post-traumatic stress disorder (PTSD) F43.12 ; Generalized social phobia F40.11 ; Trichotillomania F63.3 and Restless leg syndrome G25.81 [facility] [id number] [place] [address] 60158- 5414 October, [facility] [id number] [place] [address] 13705- 8613 Sep, [facility] [id number] [place] [address] 30090- 5961 17 Aug, 2016 [place] [address] 10571- 5187 Aug, [place] [id number] [place] [address] 77558- 2074 08 Aug, 2016 Neck mass R22.1 [place] [address] 48059- 4121 03 Aug, 2016 Atelectasis J98.11 [place] [id number] [place] [address] 58297- 3143 28 Jul, 2016 Hyperlipidemia, mixed E78.2 ; Atypical pneumonia J18.9 and Neck mass R22.1 [place] [address] 26358- 3864 15 Jul, 2016 Hemoptysis R04.2 [place] [id number] [place] [address] 13382- 8193 08 Jul, 2016 Acute non-recurrent pansinusitis J01.40 ; Hemoptysis R04.2 ; Polydipsia R63.1 and Malaise R53.81 [facility] [place] [id number] [place] [address] 59126 -3313 May, Other viral agents as the cause of diseases classified elsewhere B97.89 and Acute upper respiratory infection, unspecified J06.9 [facility] [id number] [place] [address] 88620 -9244 Mar, Nausea R11.0 [facility] [address] [place] [id number] [place] [address] 54012 -3657 Dec, Hives L50.9 [place] [id number] [place] [address] 21531- 1811 14 Dec, 2015 [facility] [place] [address] 46103 -9423 10 Dec, 2015 Cutaneous abscess of limb, unspecified L02.419 ; Cellulitis of unspecified part of limb L03.119 ; Encounter for incision and drainage procedure Z01.89 and Encounter for recheck of abscess following incision and drainage Z09 [facility] [address] [address] -[address] 09 Dec, 2015 Abscess of leg, right L02.415 [place] [address] [place] [place] [id number] [place] [address] 43046- 6198 08 Dec, 2015 Cellulitis of unspecified part of limb L03.119 and Cutaneous abscess of limb, unspecified L02.419 [place] [id number] [place] [address] 71255- 3067 Dec, [place] [id number] [place] [address] 76042- 3347 Dec, [facility] [place] [id number] [place] [address] 94440 -0957 Aug, [place] [id number] [place] [address] 82251- 8313 Aug, [facility] [place] [id number] [place] [address] 33136 -1759 04 Jul, 2015 Pain in unspecified wrist M25.539 and Back pain, thoracic M54.6 [facility] [place] [address] [address] -3254 Jun, Strain of right wrist, initial encounter S66.911A [place] [address] [place] [address] 38326- 6405 11 Jun, 2015 Chronic pancreatitis, unspecified pancreatitis type K86.1 ; Hirsuties L68.0 ; Morbid (severe) obesity due to excess calories E66.01 ; Chronic pancreatitis K86.1 and Asthma J45.909 [place] [address] [address]- 4626 14 May, 2015 [place] [address] [place] [id number] [place] [address] 56505- 0078 May, Hyperlipidemia, mixed E78.2 and Muscle spasm of back M62.830 [facility] [id number] [place] [address] 27136- 7773 Apr, [facility] [id number] [place] [address] 66708- 6446 Apr, Torticollis M43.6 [facility] [address] 05840- 5436 Apr, Right-sided thoracic back pain M54.6 [facility] [address] 68411- 3258 Mar, Rash R21 [facility] [address] 28681- 6926 Mar, [facility] [address] 85005- 0360 Jan, [facility] [address] 16639- 7107 Dec, [facility] [address] 78192- 9648 Dec, Urinary frequency 788.41 and Nocturia more than twice per night 788.43 [facility] [address] [id number] [place] [address] 13864- 6666 Nov, [facility] [address] 49585- 0079 Nov, [facility] [id number] [place] [address] 44643- 7801 Nov, Abdominal pain 789.00 [facility] [id number] [place] [address] 66275- 0167 October, TDAP DX V06.1 [facility] [address] 42612- 6653 October, [facility] [address] [id number] [address]- 8234 October, Disturbance of skin sensation 782.0 ; Wrist pain, right 719.43 ; Hyperlipidemia 272.4 and Skin lesion of face 709.9 [facility] [address] [address]- 9581 Sep, [facility] [address] [facility] [id number] [place] [address] 30675- 3311 Sep, [facility] [address] [facility] [id number] [address]- 0357 Aug, [facility] [address] [place] [id number] [place] [address] 67956- 8666 Aug, [facility] [address] [address]- 9580 Aug, [facility] [address] [id number] [address]- 0566 Aug, [facility] [address] [id number] [address]- 7265 Aug, [facility] [address] [address]- 8410 Aug, [facility] [address] [address]- 6433 Aug, [facility] [address] [address] [id number] [address]- 9477 14 Aug, 2014 [facility] [address] [id number] [address]- 4342 Aug, [facility] [address] [id number] [address]- 5956 Aug, [facility] [address] [id number] [address]- 7610 04 Aug, 2014 [facility] [address] [address]- 7567 Aug, [facility] [place] [facility] [address] [id number] [place] [address]- 0578 Aug, [facility] [place] [facility] [address] [id number] [place] [address]- 7310 Aug, [facility] [place] [facility] [address] [id number] [place] [address]- 6022 Jul, [facility] [place] [facility] [address] [id number] [place] [address]- 3260 Jul, [facility] [place] [facility] [address] [id number] [place] [address]- 9176 Jul, [facility] [place] [facility] [address] [id number] [place] [address]- 3972 Jul, [facility] [place] [facility] [address] [facility] [id number] [place] [address]- 8040 Jul, [facility] [place] [facility] [address] [id number] [place] [address]- 1842 Jul, [facility] [place] [facility] [address] [id number] [place] [address]- 4170 Jun, [facility] [place] [facility] [address] [facility] [id number] [place] [address]- 1024 Jun, [facility] [place] [facility] [address] [id number] [place] [address]- 9246 Jun, [facility] [place] [facility] [address] [id number] [place] [address]- 9884 Jun, [facility] [place] [facility] [address] [id number] [place] [address]- 7884 Jun, [facility] [place] [facility] [address] [facility] [id number] [place] [address]- 2684 Jun, [facility] [place] [facility] [address] [id number] [place] [address]- 2152 Jun, [facility] [place] [facility] [address] [id number] [place] [address]- 7900 15 Jun, 2014 [facility] [place] [facility] [address] [id number] [place] [address]- 2985 May, [facility] [place] [facility] [address] [id number] [place] [address]- 1529 May, [facility] [place] [facility] [address] [id number] [place] [address]- 7441 May, [facility] [place] [facility] [address] [id number] [place] [address]- 8359 May, [facility] [place] [facility] [address] [id number] [place] [address]- 3140 May, [facility] [place] [facility] [address] [id number] [place] [address]- 0819 May, [facility] [place] [facility] [address] [id number] [place] [address]- 5577 May, [facility] [place] [facility] [address] [id number] [place] [address]- 8305 May, [facility] [place] [facility] [address] [id number] [place] 2911 May, [facility] [place] [facility] [address] [id number] [place] [address]- 8787 May, [facility] [place] [facility] [address] [id number] [place] [address]- 8161 May, [facility] [place] [facility] [address] [id number] [place] [address]- 5444 May, [facility] [place] [facility] [address] [id number] [place] [address]- 7856 Apr, [facility] [place] [facility] [address] [id number] [place] [address]- 3316 Apr, [facility] [place] [facility] [address] [id number] [address]- 3049 Apr, [facility] [place] [facility] [address] [id number] [place] [address]- 3727 Apr, [facility] [place] [facility] [address] [id number] [address]- 6058 Apr, [facility] [place] [facility] [address] [id number] [place] [address]- 2075 Apr, [facility] [place] [facility] [address] [id number] [place] [address]- 9668 Apr, [facility] [place] [facility] [address] [id number] [place] [address]- 6194 Apr, [facility] [place] [facility] [address] [id number] [place] [address]- 4307 Apr, [facility] [place] [facility] [address] [id number] [place] [address]- 6308 Apr, [facility] [place] [facility] [address] [id number] [place] [address]- 1493 Apr, [facility] [place] [facility] [address] [id number] [place] [address]- 2316 Apr, [facility] [place] [facility] [address] [id number] [address]- 5914 Mar, [facility] [place] [facility] [address] [id number] [address]- 0525 Mar, [facility] [place] [facility] [address] [id number] [address]- 4691 Mar, [facility] [place] [facility] [address] [id number] [address]- 2779 Mar, [facility] [place] [facility] [address] [id number] [place] [address]- 2399 Feb, [facility] [place] [facility] [address] [id number] [place] [address]- 0307 Feb, [facility] [place] [facility] [address] [id number] [place] [address]- 6987 05 Feb, 2013 [facility] [place] [facility] [address] [id number] [place] [address]- 3829 Feb, 2013 [facility] [place] [facility] [address] [id number] [place] [address]- 6205 Feb, 2013 [facility] [place] [facility] [address] [id number] [place] [address]- 4404 Feb, 2013 [facility] [place] [facility] [address] [id number] [place] [address]- 6081 Jan, [facility] [place] [facility] [address] [id number] [place] [address]- 7652 Jan, [facility] [place] [facility] [address] [id number] [place] [address]- 4539 Jan, [facility] [place] [facility] [address] [id number] [place] [address]- 1094 Jan, [facility] [place] [facility] [address] [id number] [place] [address]- 3355 Jan, [facility] [place] [facility] [address] [id number] [place] [address]- 7334 Jan, [facility] [place] [facility] [address] [id number] [place] [address]- 3796 Jan, [facility] [place] [facility] [address] [id number] [place] [address]- 6553 Jan, [facility] [place] [facility] [address] [id number] [place] [address] Jan, [facility] [place] [facility] [address] [id number] [place] [address] Jan, [facility] [place] [facility] [address] [id number] [place] [address] Jan, [facility] [place] [facility] [address] [id number] [place] [address] Jan, [facility] [place] [facility] [address] [id number] [place] [address] Jan, [facility] [place] [facility] [address] [id number] [place] [address] Jan, [facility] [place] [facility] [address] [id number] [place] [address] Dec, [facility] [place] [facility] [address] [id number] [place] [address] Dec, [facility] [place] [facility] [address] [id number] [place] [address] Dec, [facility] [place] [facility] [address] [id number] [place] [address] Dec, [facility] [place] [facility] [address] [id number] [place] [address] Nov, [facility] [place] [facility] [address] [id number] [place] [address] Nov, [facility] [place] [facility] [address] [id number] [place] [address] Nov, [facility] [place] [facility] [address] [id number] [place] [address] Nov, [facility] [place] [facility] [address] [id number] [place] [address] Nov, [facility] [place] [facility] [address] [id number] [place] [address] October, [facility] [place] [facility] [address] [id number] [place] [address] October, [facility] [place] [facility] [address] [id number] [place] [address] October, [facility] [place] [facility] [address] [id number] [place] [address] October, [facility] [place] [facility] [address] [id number] [place] [address] 15 Oct, 2013 [facility] [address] [id number] [place] [address] October, [facility] [place] [facility] [address] [id number] [place] [address] October, [facility] [place] [facility] [address] [id number] [place] [address] October, [facility] [place] [facility] [address] [id number] [place] [address] October, [facility] [place] [facility] [address] [id number] [place] [address] October, [facility] [place] [facility] [address] [id number] [place] [address] October, [facility] [place] [facility] [address] [id number] [place] [address] October, [facility] [place] [facility] [address] [id number] [place] [address] October, [facility] [place] [facility] [address] [id number] [place] [address] October, [facility] [place] [facility] [address] [id number] [place] [address] Sep, [facility] [place] [facility] [address] [id number] [place] [address] Sep, [facility] [place] [facility] [address] [id number] [place] [address] Sep, [facility] [place] [facility] [address] [id number] [place] [address] Sep, [facility] [place] [facility] [address] [id number] [place] [address] Sep, [facility] [place] [facility] [address] [id number] [place] [address] Sep, [facility] [place] [facility] [address] [id number] [place] [address] Sep, [facility] [place] [facility] [address] [id number] [place] [address] Sep, [facility] [place] [facility] [address] [id number] [place] [address] Sep, [facility] [place] [facility] [address] [id number] [place] [address] Sep, [facility] [place] [facility] [address] [id number] [place] [address] 6184 Sep, [facility] [place] [facility] [address] [id number] [place] [address] 35[address] Sep, [facility] [place] [facility] [address] [id number] [place] [address] 6656 Sep, [facility] [place] [facility] [address] [id number] [place] [address] 4984 Sep, [facility] [place] [facility] [address] [id number] [place] [address] 2063 Sep, [facility] [place] [facility] [address] [id number] [place] [address] 4[address] Aug, [facility] [place] [facility] [address] [id number] [place] [address]- 0457 Aug, [facility] [place] [facility] [address] [id number] [place] [address]- 0406 Aug, [facility] [place] [facility] [address] [id number] [place] [address]- 7053 Aug, [facility] [place] [facility] [address] [id number] [place] [address] 115[address] Jul, [facility] [place] [facility] [address] [id number] [place] [address] 4848 Jul, [facility] [place] [facility] [address] [id number] [place] [address]- 8600 06 Jul, 2013 [facility] [address] [id number] [place] [address] Jul, [facility] [address] [id number] [address] Jun, [facility] [address] [id number] [place] [address]- 1286 Jun, [facility] [address] [id number] [place] [address]- 1033 Jun, [facility] [address] [id number] [place] [address]- 1984 Jun, [facility] [address] [id number] [place] [address]- 9685 Jun, [facility] [address] [id number] [place] [address] Jun, [facility] [address] [id number] [place] [address]- 8493 Jun, [facility] [address] [id number] [place] [address] 04[address] Jun, [facility] [address] [id number] [place] [address]- 2673 May, [facility] [address] [id number] [place] [address]- 7274 May, [facility] [address] [id number] [place] [address]- 2242 18 May, 2013 [facility] [address] [id number] [place] [address]- 1027 18 May, 2013 [facility] [place] [facility] [address] [id number] [place] [address]- 6381 17 May, 2013 [facility] [address] [id number] [place] [id number] 17 May, 2013 [facility] [address] [id number] [place] [address]- 8476 17 May, 2013 [facility] [address] [id number] [place] [address]- 5802 17 May, 2013 [facility] [address] [id number] [place] [address]- 7465 16 May, 2013 [facility] [address] [id number] [place] [address] 16 May, 2013 [facility] [address] [id number] [place] [address]- 3388 14 May, 2013 [facility] [address] [id number] [place] [address]- 5100 14 May, 2013 [facility] [address] [id number] [place] [address]- 0121 13 May, 2013 [facility] [address] [id number] [place] [address]- 2212 13 May, 2013 [facility] [address] [id number] [place] [address]- 8996 12 May, 2013 [facility] [address] [id number] [place] [address]- 5606 12 May, 2013 [facility] [address] [id number] [place] [address]- 9736 11 May, 2013 [facility] [address] [id number] [place] [address]- 2918 11 May, 2013 [facility] [address] [id number] [place] [address]- 5175 Apr, [facility] [address] [id number] [place] [address]- 7477 Apr, [facility] [address] [id number] [place] [address]- 6835 Apr, [facility] [address] [id number] [place] [address] Apr, [facility] [address] [id number] [place] [address]- 0991 Aug, [facility] [place] [facility] [address] [id number] [place] [address]- 4450 Aug, [facility] [address] [id number] [place] [address]- 8318 06 Aug, 2012 [facility] [place] [facility] [address] [id number] [place] [address]- 8042 Aug, [facility] [address] [id number] [place] [address] Jul, [facility] [place] [facility] [address] [id number] [place] [address]- 5938 Jun, [facility] [address] [id number] [place] [address]- 0118 Jun, [facility] [address] [id number] [place] [address]- 2438 Jun, [facility] [address] [id number] [place] [address]- 4239 Jun, [facility] [address] [id number] [place] [address]- 3500 May, [facility] [address] [id number] [place] [address]- 9741 May, [facility] [place] [facility] [address] [id number] [place] [address]- 2732 May, [facility] [place] [facility] [address] [id number] [place] [address]- 5283 May, [facility] [place] [facility] [address] [id number] [place] [address]- 0126 May, [facility] [place] [facility] [address] [id number] [place] [address]- 0087 May, [facility] [place] [facility] [address] [id number] [place] [address]- 7952 May, [facility] [place] [facility] [address] [id number] [place] [address]- 7878 Apr, [facility] [place] [facility] [address] [id number] [place] [address]- 5736 Apr, [facility] [place] [facility] [address] [id number] [place] [address]- 2124 Apr, [facility] [place] [facility] [address] [id number] [place] [address]- 4051 Apr, [facility] [place] [facility] [address] [id number] [place] [address], [place] [address]- 7852 Apr, [facility] [place] [facility] [address] [id number] [place] [address]- 7065 Apr, [facility] [place] [facility] [address] [facility] [id number] [place] [address]- 1529 Apr, [facility] [place] [facility] [address] [id number] [place] [address]- 6838 Mar, [facility] [place] [facility] [address] [id number] [place] [address]- 2574 Mar, [facility] [place] [facility] [address] [facility] [id number] [place] [address]- 9406 Mar, [facility] [place] [facility] [address] [id number] [place] [address]- 8645 Mar, [facility] [place] [facility] [address] [id number] [place] [address]- 3913 Mar, [facility] [place] [facility] [address] [id number] [place] [address]- 1389 Mar, [facility] [place] [facility] [address] [facility] [id number] [place] [address]- 3374 Mar, [facility] [place] [facility] [address] [facility] [id number] [place] [address]- 4221 Mar, [facility] [place] [facility] [address] [id number] [place] [address]- 8865 Mar, [facility] [place] [facility] [address] [id number] [place] [address]- 9416 Mar, [facility] [place] [facility] [address] [id number] [place] [address]- 4756 Mar, [facility] [place] [facility] [address] [id number] [place] [address]- 0999 Mar, [facility] [place] [facility] [address] [id number] [place] [address]- 0555 Feb, [facility] [place] [facility] [address] [id number] [place] [address]- 2271 Jan, [facility] [place] [facility] [address] [id number] [place] [address]- 3549 Jan, [facility] [place] [facility] [address] [id number] [place] [address]- 5452 Jan, [facility] [place] [facility] [address] [id number] [place] [address]- 9563 Jan, [facility] [place] [facility] [address] [id number] [place] [address]- 8694 Jan, [facility] [place] [facility] [address] [id number] [place] [address]- 3612 Dec, [facility] [place] [facility] [address] [id number] [place] [address]- 5065 Dec, [facility] [place] [facility] [address] [id number] [place] [address]- 1414 Nov, [facility] [place] [facility] [address] [id number] [place] [address]- 7104 Nov, [facility] [place] [facility] [address] [id number] [place] [address]- 9457 Nov, [facility] [place] [facility] [address] [id number] [place] [address]- 5787 October, [facility] [address] [id number] [place] [address]- 4082 October, [facility] [place] [facility] [address] [id number] [place] [address]- 6999 October, [facility] [address] [id number] [place] [address]- 8335 October, [facility] [address] [id number] [place] [address]- 7280 October, [facility] [address] [id number] [place] [address]- 0799 October, [facility] [address] [id number] [place] [address]- 6367 October, [facility] [address] [id number] [place] [address]- 4260 Sep, [facility] [place] [facility] [address] [id number] [place] [address]- 3750 Sep, [facility] [place] [facility] [address] [id number] [place] [address]- 3446 Sep, [facility] [place] [facility] [address] [id number] [place] [address]- 9566 25 Sep, 2011 [facility] [place] [facility] [address] [id number] [place] [address]- 7912 24 Sep, 2011 [facility] [place] [facility] [address] [id number] [place] [address]- 6211 19 Sep, 2011 [facility] [place] [facility] [address] [id number] [place] [address]- 3906 17 Sep, 2011 [facility] [place] [facility] [address] [id number] [place] [address]- 4345 16 Sep, 2011 [facility] [place] [facility] [address] [id number] [place] [address]- 4379 16 Sep, 2011 [facility] [place] [facility] [address] [id number] [place] [address]- 7036 14 Sep, 2011 [facility] [address] [id number] [place] [address]- 0956 13 Sep, 2011 [facility] [place] [facility] [address] [id number] [place] [address] 2546 10 Sep, 2011 [facility] [place] [facility] [address] [id number] [place] [address]- 3756 09 Sep, 2011 [facility] [place] [facility] [address] [id number] [place] [address] 2546 27 Aug, 2011 [facility] [place] [facility] [address] [id number] [place] [address]- 5108 12 Aug, 2011 [facility] [place] [facility] [address] [facility] [id number] [place] [address]- 8376 08 Aug, 2011 [facility] [place] [facility] [address] [id number] [place] [address]- 0166 06 Aug, 2011 [facility] [place] [facility] [address] [id number] [place] [address]- 9976 28 Jul, 2011 [facility] [place] [facility] [address] [id number] [place] [address]- 5948 22 Jul, 2011 [facility] [place] [facility] [address] [facility] [id number] [place] [address]- 7235 16 Jul, 2011 [facility] [place] [facility] [address] [facility] [id number] [place] [address] 2546 15 Jul, 2011 [facility] [place] [facility] [address] [id number] [place] [address] 2546 14 Jul, 2011 [facility] [place] [facility] [address] [id number] [place] [address]- 7256 10 Jul, 2011 [facility] [place] [facility] [address] [facility] [id number] [place] [address]- 2546 30 Jun, 2011 [facility] [place] [facility] [address] [facility] [id number] [place] [address]- 8160 Jun, [facility] [place] [facility] [address] [id number] [place] [address]- 1568 Jun, [facility] [place] [facility] [address] [id number] [place] [address]- 4742 Jun, [facility] [place] [facility] [address] [id number] [place] [address]- 8402 Jun, [facility] [place] [facility] [address] [id number] [place] [address]- 4530 May, [facility] [place] [facility] [address] [id number] [place] [address]- 8510 May, [facility] [place] [facility] [address] [id number] [place] [address]- 3164 May, [facility] [place] [facility] [address] [id number] [place] [address]- 2924 May, [facility] [place] [facility] [address] [id number] [place] [address]- 4149 May, [facility] [place] [facility] [address] [id number] [place] [address]- 0188 May, [facility] [place] [facility] [address] [id number] [place] [address]- 3614 May, [facility] [place] [facility] [address] [id number] [place] [address]- 5766 15 Apr, 2011 [facility] [place] [facility] [address] [id number] [place] [address]- 1490 15 Apr, 2011 [facility] [place] [facility] [address] [id number] [place] [address]- 5195 Apr, [facility] [place] [facility] [address] [id number] [place] [address]- 3364 07 Apr, 2011 [facility] [place] [facility] [address] [id number] [place] [address]- 5359 04 Apr, 2011 [facility] [place] [facility] [address] [id number] [place] [address]- 6860 Apr, [facility] [address] [id number] [place] [address]- 2228 Mar, [facility] [place] [facility] [address] [id number] [place] [address]- 9762 Mar, [facility] [place] [facility] [address] [id number] [place] [address]- 8435 Mar, [facility] [place] [facility] [address] [id number] [place] [address]- 8300 Mar, [facility] [place] [facility] [address] [id number] [place] [address]- 0258 Jan, [facility] [place] [facility] [address] [id number] [place] [address]- 5928 Dec, [facility] [place] [facility] [address] [id number] [place] [address]- 1593 Dec, [facility] [place] [facility] [address] [id number] [place] [address]- 9490 October, [facility] [place] [facility] [address] [id number] [place] [address]- 5597 Sep, [facility] [place] [facility] [address] [id number] [place] [address]- 9558 14 Sep, 2010 [facility] [place] [facility] [address] [id number] [place] [address]- 7908 17 Jul, 2010 [facility] [place] [facility] [address] [id number] [place] [address]- 6523 16 Jul, 2010 [facility] [place] [facility] [address] [id number] [place] [address]- 1071 May, [facility] [place] [facility] [address] [id number] [place] [address]- 8341 May, [facility] [place] [facility] [address] [id number] [place] 9631 08 May, 2010 [facility] [place] [facility] [address] [id number] [place] [address]- 5101 May, [facility] [place] [facility] [address] [id number] [place] [address]- 8085 Apr, [facility] [place] [facility] [address] [id number] [place] [address]- 2391 Apr, [facility] [place] [facility] [address] [id number] [place] [address]- 9539 Apr, [facility] [place] [facility] [address] [id number] [place] [address]- 2394 Apr, [facility] [place] [facility] [address] [id number] [place] [address]- 5137 Apr, [facility] [address] [id number] [place] [address]- 0494 Mar, [facility] [place] [facility] [address] [id number] [place] [address]- 2550 14 Mar, 2010 [facility] [place] [facility] [address] [id number] [place] [address]- 9454 Mar, [facility] [place] [facility] [address] [id number] [place] [address]- 0081 Mar, [facility] [place] [facility] [address] [id number] [place] [address]- 6385 Jan, [facility] [place] [facility] [address] [id number] [place] [address]- 1858 15 Dec, 2009 [facility] [place] [facility] [address] [id number] [place] [address]- 0120 10 Sep, 2009 [facility] [place] [facility] [address] [id number] [place] [address]- 5366 May, [facility] [place] [facility] [address] [id number] [place] [address]- 7094 May, [facility] [place] [facility] [address] [id number] [place] [address]306 May, [facility] [id number] [address]- 6714 Apr, [facility] [id number] 2546 Apr, [facility] [id number] [address]- 3429 Apr, [facility] [id number] 6922 Apr, [facility] [id number] 3215 Apr, [facility] [id number] 3282 Mar, [facility] [id number] [address]80 Mar, [facility] [id number] [address]- 5040 Jul, IMMUNIZATIONS No Known Immunizations SOCIAL HISTORY Never Assessed REASON FOR VISIT r/s hospital f/u PLAN OF CARE VITAL SIGNS MEDICATIONS Unknown [...] 08/2017 Surgical History nephrectomy 03/2017 Hospitalization History [facility]ulitis-[facility] 12/20/15 Hospital[facility]- Abd pain 03/07/2017 [facility] [place]- Abd pain 03/14/2017 [facility] [place]- No bowel movement, rash 04/13/2017 Hospital[facility] [place]- Abd pain r/t kidney surgery on 04/17/2017 Hospitalization History [facility] [place]- Abd pain r/t kidney surgery on 04/18/2017 [facility] History [facility] [place]- Lower abd pain 04/30/2017 Hospitalization History [facility] [place]- Cannot urinate 05/30/2017 Hospitalization History [facility] [place]- Pancreatitis Sx 06/29/2017 Hospitalization History [facility] [place]- Stomach pain 07/22/2017 Hospitalization History [facility] [place]- Left side pain 08/12/2017 Hospitalization History [facility] [place]- Incision site infection 08/30/2017 Hospitalization History [facility] [place]- Post Op Seroma/Hematoma Left Abdomen. Discharged 09/04/17- Dr Daniel 09/02/2017 Hospitalization History [facility] [place]- Right shoulder and back pain 2017 Hospitalization History [facility] [place]- Shoulder/Back pain 11/11/2017 Hospitalization History [facility] [place]- Right shoulder blade pain 12/04/2017 Hospitalization History [facility] [place]- C-Diff 12/13/2017
[2017-12-27] MEDS ORDERED: NS IV 1000 ML 1,000 ML IV SCH (10:45)
[2017-12-27] MEDS ORDERED: ONDANSETRON 4 MG/2 ML (SDV) Z0FRAN IVP ONE (10:45)
[2017-12-27 11:15] LABS: BASOPHILS % (AUTO) 0 % (0-10); EOSINOPHILS # (AUTO) 0.3 10^3/uL (0.0-0.3); EOSINOPHILS % (AUTO) 3 % (0-10); HEMATOCRIT 33 % (35-52); HEMOGLOBIN 10.7 G/DL (11.5-16.0); LYMPHOCYTES % (AUTO) 27 % (12-44); MEAN CORPUSCULAR HEMOGLOBIN 28 PG (25-34); MEAN CORPUSCULAR HGB CONC 33 G/DL (32-36); MEAN CORPUSCULAR VOLUME 86 FL (80-99); MEAN PLATELET VOLUME 9.6 FL (7.4-10.4); MONOCYTES # (AUTO) 0.4 X 10^3 (0.0-1.0); MONOCYTES % (AUTO) 5 % (0-12); NEUTROPHILS # (AUTO) 4.7 X 10^3 (1.8-7.8); NEUTROPHILS % (AUTO) 64 % (42-75); PLATELET COUNT 260 10^3/uL (130-400); RED BLOOD COUNT 3.81 10^6/uL (4.35-5.85); RED CELL DISTRIBUTION WIDTH 14.4 % (10.0-14.5); WHITE BLOOD COUNT 7.3 10^3/uL (4.3-11.0)
--- NOTE | 2017-12-27 11:41 | ED Abdominal Pain ---
General Chief Complaint: Abdominal/GI Problems Stated Complaint: VOMITING Nursing Triage Note: AMB TO ROOM FROM OP AFTER GETTING NS, ZOFRAN,PHENGRAN AND 2GM OF VANCOMYCIN. PATIENT REPORTS THAT SHE TOLD THEM TO STOP THE FLUIDS BECAUSE SHE WAS VOMITING BILE. REPORTS SHE IS GETTING VANCOMYCIN FOR PAIN IN L SIDE. PICC LINE IN PLACE IN L ARM. WAS TO HAVE APPOINTMENT WITH WAS TOLD TO COME TO ER BY DR AT [facility] Sepsis Screen: No Definite Risk Source of Information: Patient, Family Exam Limitations: No Limitations History of Present Illness Date Seen by Provider: Dec 27, 2017 Time Seen by Provider: 11:39 Initial Comments This 32-year-old white female presents with a complaint of persistent abdominal pain and nausea and vomiting. Patient has had an abdominal strep infection involving her mesh. She is on Zyvox on an outpatient basis. The patient developed persistent vomiting precipitating her presentation to the emergency department by her surgeon Dr. DANIEL. Patient denies hematemesis, associated headache photophobia or stiff neck, cough or shortness of breath, fever or chill. Allergies and Home Medications Allergies Coded Allergies: meperidine (Verified Allergy, Unknown, 08/20/17) penicillin G (Verified Allergy, Unknown, 08/20/17) vancomycin (Unverified Adverse Reaction, Intermediate, severe itching, ) Home Medications Acetaminophen 500 Mg Tablet, 500-1,000 MG PO Q6H PRN for PAIN-MODERATE, ( Reported) Bisacodyl 5 Mg Tablet, 5-10 MG PO DAILY PRN for CONSTIPATION-4TH LINE, (Reported ) Cyanocobalamin 1,000 Mcg/Ml Inj, 1,000 MCG IJ MONTHLY, (Reported) Cyclobenzaprine HCl 10 Mg Tablet, 10 MG PO Q8H PRN for SPASMS Prescribed by: YUKI MARCH on 10/22/17 1552 Cyclobenzaprine HCl 10 Mg Tablet, 10 MG PO Q8H PRN for SPASMS Prescribed by: YUKI MARCH on 12/04/17 0923 Diphenhydramine HCl 25 Mg Capsule, 25 MG PO Q6H PRN for ALLERGIES, (Reported) Estradiol 2 Mg Tablet, 2 MG PO HS, (Reported) Fluoxetine HCl 40 Mg Capsule, 40 MG PO HS, (Reported) Hydrocodone Bit/Acetaminophen 1 Ea Tablet, 1-2 EACH PO Q8H Prescribed by: YUKI MARCH on 12/04/17 09 Hydrocodone/Acetaminophen 1 Each Tablet, 1-2 TAB PO Q4H PRN for PAIN-MODERATE, ( Reported) Metronidazole 500 Mg Tablet, 500 MG PO TID Prescribed by: GEORGES FINN on 12/13/171814 Ondansetron 8 Mg Tab.rapdis, 8 MG PO BID, (Reported) Ondansetron 4 Mg Tab.rapdis, 8 MG PO Q6H PRN for NAUSEA/VOMITING Prescribed by: MAKAYLA HAWKINS on 12/18/17 06 Polyethylene Glycol 3350 255 Gm Powder, 17 GM PO BID PRN for CONSTIPATION-2ND LINE, (Reported) Prednisone 20 Mg Tab, 40 MG PO DAILY Prescribed by: YUKI MARCH on 10/22/17 155 Promethazine HCl 25 Mg Tablet, 25 MG PO Q6H PRN for NAUSEA/VOMITING Prescribed by: MAKAYLA HAWKINS on 12/18/17 06 Ropinirole HCl 4 Mg Tablet, 4 MG PO HS, (Reported) Sulfamethoxazole/Trimethoprim 1 Each Tablet, 1 TAB PO BID, (Reported) 10 DAY THERAPY FILLED 08-31-17 Patient Home Medication List Home Medication List Reviewed: Yes Review of Systems Constitutional: No chills, No fever; malaise EENTM: No Blurred Vision Respiratory: Denies Cough Cardiovascular: Denies Chest Pain Gastrointestinal: Abdominal Pain (left sided) Genitourinary: No Symptoms Reported Musculoskeletal: No back pain Skin: No change in color, No rash Psychiatric/Neurological: No Symptoms Reported Endocrine: No Symptoms Reported Hematologic/Lymphatic: No Symptoms Reported Past Assvtwr-Mrhnzs-Ydmgpd Hx Past Med/Social Hx: Reviewed Nursing Past Med/Soc Hx Patient Social History Alcohol Use: Denies Use Recreational Drug Use: No Smoking Status: Former Smoker Type Used: Cigarettes 2nd Hand Smoke Exposure: No Recent Foreign Travel: No Contact w/Someone Who Travel: No Recent Infectious Disease Expo: No Recent Hopitalizations: No Immunizations Up To Date Tetanus Booster (TDap): Unknown PED Vaccines UTD: No Date of Pneumonia Vaccine: May 17, 2012 Date of Influenza Vaccine: Jul 03, 2012 Seasonal Allergies Seasonal Allergies: Yes (MILD) Past Medical History Surgeries: Yes Abdominal, Adenoidectomy, Appendectomy, Gallbladder, 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, Nephrectomy, Orthopedic, Tonsillectomy Respiratory: Yes (HASNT USED INHALER IN > 4 YRS) Asthma Currently Using CPAP: No Currently Using BIPAP: No Cardiac: No Neurological: Yes (RESTLESS LEG SYNDROME) Headaches /Migraines 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: No 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 Sexually Transmitted Disease: No HIV/AIDS: No Genitourinary: Yes (L KIDNEY REMOVED FOR TUMOR;) UTI-Chronic Gastrointestinal: Yes (ENLARGED LIVER/FATTY LIVER) Liver Disease/Jaundice, Chronic Constipation, Pancreatitis, Polyps Musculoskeletal: Yes (COCCYX-REPAIRED, MAY HAVE SIGNS OF ARTHRITIS) Chronic Back Pain Endocrine: Yes (CHRONIC PANCREATITIS) HEENT: No Loss of Vision: Denies Hearing Impairment: Denies Cancer: Yes Kidney Did You Recieve Any Treatments: Yes What Type of Treatment Did You: Surgical Intervention Psychosocial: Yes Anxiety, Depression Integumentary: No Herpes Blood Disorders: No Adverse Reaction/Blood Tranf: No (N/A) Family Medical History Reviewed Nursing Family Hx Cardiovascular disease 19 FATHER Completed stroke 19 FATHER Diabetes mellitus 19 FATHER Hypercholesterolemia 19 FATHER 19 MOTHER Hypertension 19 FATHER 19 MOTHER Neoplasm 19 MOTHER Psychosocial problem 19 FATHER 19 MOTHER Cancer, Diabetes, Hypertension Physical Exam Vital Signs Vital Signs - First Documented 12/27/17 09:58 Temp 98.7 Pulse 79 Resp 18 B/P (MAP) 124/89 (101) Pulse Ox 98 Capillary Refill : Less Than 3 Seconds Height/Weight/BMI Height: 5'2.00" Weight: 260lbs. 0.0oz. [id number]; 47.7 BMI Method:Stated General Appearance: WD/WN, mild distress HEENT: normal ENT inspection Neck: full range of motion, supple, normal inspection Respiratory: lungs clear Cardiovascular: normal peripheral pulses, regular rate, rhythm Gastrointestinal: normal bowel sounds, non tender, soft Extremities: normal range of motion, non-tender Back: normal inspection Pelvic: normal external exam Neurologic/Psychiatric: no motor/sensory deficits, alert, normal mood/affect Skin: normal color, warm/dry Focused Exam Lactate Level 12/27/17 10:45: Lactic Acid Level 1.32 Lactic Acid Level Laboratory Tests Test 12/27/17 10:45 Lactic Acid Level 1.32 MMOL/L (0.50-2.00) Progress/Results/Core Measures Results/Orders Lab Results Laboratory Tests Test 12/27/17 10:45 12/27/17 10:50 Range/Units Lactic Acid Level 1.32 0.50-2.00 MMOL/L White Blood Count 7.3 4.3-11.0 10^3/uL Red Blood Count 3.81 L 4.35-5.85 10^6/uL Hemoglobin 10.7 L 11.5-16.0 G/DL Hematocrit 33 L 35-52 % Mean Corpuscular Volume 86 80-99 FL Mean Corpuscular Hemoglobin 28 25-34 PG Mean Corpuscular Hemoglobin Concent 33 32-36 G/DL Red Cell Distribution Width 14.4 10.0-14.5 % Platelet Count 260 130-400 10^3/uL Mean Platelet Volume 9.6 7.4-10.4 FL Neutrophils (%) (Auto) 64 42-75 % Lymphocytes (%) (Auto) 27 12-44 % Monocytes (%) (Auto) 5 0-12 % Eosinophils (%) (Auto) 3 0-10 % Basophils (%) (Auto) 0 0-10 % Neutrophils # (Auto) 4.7 1.8-7.8 X 10^3 Lymphocytes # (Auto) 2.0 1.0-4.0 X 10^3 Monocytes # (Auto) 0.4 0.0-1.0 X 10^3 Eosinophils # (Auto) 0.3 0.0-0.3 10^3/uL Basophils # (Auto) 0.0 0.0-0.1 10^3/uL Erythrocyte Sedimentation Rate 57 H 0-20 MM/HR Sodium Level 141 135-145 MMOL/L Potassium Level 4.2 3.6-5.0 MMOL/L Chloride Level 108 H 98-107 MMOL/L Carbon Dioxide Level 24 21-32 MMOL/L Anion Gap 9 5-14 MMOL/L Blood Urea Nitrogen 12 7-18 MG/DL Creatinine 0.84 0.60-1.30 MG/DL Estimat Glomerular Filtration Rate > 60 BUN/Creatinine Ratio 14 Glucose Level 83 70-105 MG/DL Calcium Level 9.1 8.5-10.1 MG/DL Total Bilirubin 0.3 0.1-1.0 MG/DL Aspartate Amino Transf (AST/SGOT) 29 5-34 U/L Alanine Aminotransferase (ALT/SGPT) 14 0-55 U/L Alkaline Phosphatase 49 40-136 U/L Total Protein 6.5 6.4-8.2 GM/DL Albumin 3.5 3.2-4.5 GM/DL Lipase 24 8-78 U/L My Orders Orders - ADRIÁN PARKS MD Cbc With Automated Diff (12/27/17 10:33) Comprehensive Metabolic Panel (12/27/17 10:33) Ua Culture If Indicated (12/27/17 10:33) Erythrocyte Sedimentation Rate (12/27/17 10:33) Blood Culture (12/27/17 10:33) Lactic Acid Analyzer (12/27/17 10:33) Lipase (12/27/17 10:33) Ns Iv 1000 Ml (Sodium Chloride 0.9%) (12/27/17 10:45) Ondansetron Injection (Zofran Injectio (12/27/17 10:45) Medications Given in ED Current Medications Medications Dose Ordered Sig/Neal Route Start Time Stop Time Status Last Admin Dose Admin Ondansetron HCl 4 mg ONCE ONCE IVP 12/27/17 10:45 12/27/17 10:46 DC 12/27/17 10:55 4 MG Vital Signs/I&O 12/27/17 09:58 Temp 98.7 Pulse 79 Resp 18 B/P (MAP) 124/89 (101) Pulse Ox 98 Blood Pressure Mean: 101 Progress Progress Note : Time: 12:14 Progress Note Patient had IV fluids established and was given IV Zofran for her nausea. Patient laboratory evaluation demonstrated an elevated sedimentation rate. Her lipase was normal. The remainder of her lab was unremarkable. Telephone consultation was undertaken with Dr. DANIEL and with Dr. Gibbs. The patient was admitted for her persistent vomiting. Orders were written to continue with IV Zyvox. Departure Communication (Admissions) Time/Spoke to Admitting Phy: 12:16 Dr. Gibbs Time/Spoke to Consulting Phy: 12:16 Dr. Daniel Impression Primary Impression: Nausea and vomiting Qualified Codes: R11.14 - Bilious vomiting Disposition: ADMITTED INPATIENT Condition: Improved Admissions Decision to Admit Reason: Admit from ER (General) Decision to Admit/Date: Dec 27, 2017 Time/Decision to Admit Time: 12:16 Departure-Patient Inst. Referrals: CARMEN GIBBS MD (PCP/Family) Primary Care Physician ADRIÁN PARKS MD Dec 27, 2017 11:41
[2017-12-27 11:43] LABS: ALANINE AMINOTRANSFERASE 14 U/L (0-55); ALBUMIN 3.5 GM/DL (3.2-4.5); ALKALINE PHOSPHATASE 49 U/L (40-136); BILIRUBIN,TOTAL 0.3 MG/DL (0.1-1.0); BUN/CREATININE RATIO 14; CALCIUM 9.1 MG/DL (8.5-10.1); CARBON DIOXIDE 24 MMOL/L (21-32); CHLORIDE 108 MMOL/L (98-107); CREATININE SERUM 0.84 MG/DL (0.60-1.30); GFR ESTIMATED > 60; GLUCOSE 83 MG/DL (70-105); LIPASE 24 U/L (8-78); POTASSIUM 4.2 MMOL/L (3.6-5.0); SODIUM 141 MMOL/L (135-145); TOTAL PROTEIN 6.5 GM/DL (6.4-8.2)
[2017-12-27 11:48] LABS: ERYTHROCYTE SEDIMENTATION RATE 57 MM/HR (0-20)
[2017-12-27 13:17] VITALS: BP 140/76
--- NOTE | 2017-12-27 13:27 | History & Physicial (CHS) ---
ROCHELLE DURBIN MEDICAL STUDENT 12/27/17 1:27pm: HPI History of Present Illness: 32 year old female with Hx of C Diff and chronic abd pain c/o N/V x 1 month. Pt states that she saw her surgeon on Saturday or Saturday and was told she has abdominal staph infection of her mesh for which she is being treated with IV Vanc. Pt states that she has been having ~ 12 episodes of vomiting a day for the last month. Pt admits chronic abdominal pain and chills. Pt denies any diarrhea, constipation, fever, chest pain, SOB, MEJIA. Pt states that she was given Zofran in the ED and that is has helped control her vomiting but she still has nausea. Pt states she has only been able to keep little sips of water down for the last month due to the nausea and vomiting. Pt has been seen in the ED and clinic multiple times for similar complaints. Time Seen by Provider: 13:04 Attending Physician Carmen Gibbs MD PCP Carmen Gibbs MD Consult Date of Admission Dec 27, 2017 at 12:03 Home Medications Home Medications Reviewed patient Home Medication Reconciliation performed by pharmacy medication reconciliations senior qc technician and/or nursing. Patients Allergies have been reviewed. Allergies Coded Allergies: meperidine (Verified Allergy, Unknown, 08/20/17) penicillin G (Verified Allergy, Unknown, 08/20/17) vancomycin (Unverified Adverse Reaction, Intermediate, severe itching, ) JVU-Kxetvy-Otrlln Hx Patient Social History Alcohol Use: Denies Use Recreational Drug Use: No Smoking Status: Former Smoker Type Used: Cigarettes 2nd Hand Smoke Exposure: No Recent Foreign Travel: No Contact w/other who traveled: No Recent Hopitalizations: No Recent Infectious Disease Expo: No Immunizations Up To Date Tetanus Booster (TDap): Unknown Date of Pneumonia Vaccine: May 17, 2012 Date of Influenza Vaccine: Jul 03, 2012 Past Medical History PMHx: Asthma Chronic pancreatitis PCOS Chronic headaches PSurghx: 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 Cholecystectomy Appendectomy Knee arthrscop Family Medical History Significant Family History: Cancer, Diabetes, Hypertension Family History: Cardiovascular disease 19 FATHER Completed stroke 19 FATHER Diabetes mellitus 19 FATHER Hypercholesterolemia 19 FATHER 19 MOTHER Hypertension 19 FATHER 19 MOTHER Neoplasm 19 MOTHER Psychosocial problem 19 FATHER 19 MOTHER Review of Systems (CHC) Constitutional: chills; No fever Respiratory: No short of breath Cardiovascular: No chest pain Gastrointestinal: abdominal pain (chronic); No diarrhea; nausea, vomiting Genitourinary: No dysuria Reviewed Test Results Reviewed Test Results Lab Laboratory Tests Test 12/27/17 10:45 12/27/17 10:50 Range/Units Lactic Acid Level 1.32 0.50-2.00 MMOL/L White Blood Count 7.3 4.3-11.0 10^3/uL Red Blood Count 3.81 L 4.35-5.85 10^6/uL Hemoglobin 10.7 L 11.5-16.0 G/DL Hematocrit 33 L 35-52 % Mean Corpuscular Volume 86 80-99 FL Mean Corpuscular Hemoglobin 28 25-34 PG Mean Corpuscular Hemoglobin Concent 33 32-36 G/DL Red Cell Distribution Width 14.4 10.0-14.5 % Platelet Count 260 130-400 10^3/uL Mean Platelet Volume 9.6 7.4-10.4 FL Neutrophils (%) (Auto) 64 42-75 % Lymphocytes (%) (Auto) 27 12-44 % Monocytes (%) (Auto) 5 0-12 % Eosinophils (%) (Auto) 3 0-10 % Basophils (%) (Auto) 0 0-10 % Neutrophils # (Auto) 4.7 1.8-7.8 X 10^3 Lymphocytes # (Auto) 2.0 1.0-4.0 X 10^3 Monocytes # (Auto) 0.4 0.0-1.0 X 10^3 Eosinophils # (Auto) 0.3 0.0-0.3 10^3/uL Basophils # (Auto) 0.0 0.0-0.1 10^3/uL Erythrocyte Sedimentation Rate 57 H 0-20 MM/HR Sodium Level 141 135-145 MMOL/L Potassium Level 4.2 3.6-5.0 MMOL/L Chloride Level 108 H 98-107 MMOL/L Carbon Dioxide Level 24 21-32 MMOL/L Anion Gap 9 5-14 MMOL/L Blood Urea Nitrogen 12 7-18 MG/DL Creatinine 0.84 0.60-1.30 MG/DL Estimat Glomerular Filtration Rate > 60 BUN/Creatinine Ratio 14 Glucose Level 83 70-105 MG/DL Calcium Level 9.1 8.5-10.1 MG/DL Total Bilirubin 0.3 0.1-1.0 MG/DL Aspartate Amino Transf (AST/SGOT) 29 5-34 U/L Alanine Aminotransferase (ALT/SGPT) 14 0-55 U/L Alkaline Phosphatase 49 40-136 U/L Total Protein 6.5 6.4-8.2 GM/DL Albumin 3.5 3.2-4.5 GM/DL Lipase 24 8-78 U/L Physical Exam-([facility]) Physical Exam Vital Signs VS - Last 72 Hours, by Label 12/27/17 12/27/17 12/27/17 09:58 13:04 13:17 Temp 98.7 97.0 Pulse 79 79 74 Resp 18 18 20 B/P (MAP) 124/89 (101) 124/89 140/76 (97) Pulse Ox 98 98 97 O2 Delivery Room Air Capillary Refill : Less Than 3 Seconds General Appearance: WD/WN, no apparent distress Eyes: Bilateral Eye EOMI Neck: full range of motion Respiratory: lungs clear, normal breath sounds, no respiratory distress Cardiovascular: regular rate, rhythm Peripheral Pulses: 2+ Radial Pulses (R), 2+ Radial Pulses (L) Gastrointestinal: soft, other (mild TTP to left lower abd) Back: normal inspection Extremities: normal range of motion Neurologic/Psychiatric: alert, normal mood/affect Skin: normal color, warm/dry Assessment/Plan Assessment/Plan Admission Status: Observation Assessment & Plan Intractable nausea vomiting - IV zofran, phenergan and IV fluids Abdominal Staph infection - will continue IV vanc, being managed by Dr. Lynch C. Diff - Pt was treated with 10 days of metronidazole on 12/13-12/24, pt does not have any diarrhea so not likely that she continues to have C. Diff. CARMEN GIBBS MD 12/27/17 9:20pm: HPI History of Present Illness: 32 yo female with complicated medical history including chronic intermittent abdominal pain and nausea and vomiting secondary to chronic pancreatitis among other suspected causes. She was having hematochezia and reported diarrhea whens he last saw her GI physician at and they ordered stool studies. On 12/13, she was notified her C diff testing was positive and she came to the ER where she was prescribed metronidazole for 10 days. Currently, she initially complained of diarrhea, but on further questioning, she states she has a bowel movement every time she eats, which are now formed stools with no further hematochezia. She also has had trouble with nausea and vomiting and reports she has been unable to keep anything down for as long as a month, but also states she has been able to take her antibiotics. On a repeat ER visit 12/18, she had blood cultures drawn and one of the two sites grew enterococcus and coag neg staph and she had a CT of her abdomen which showed decrease in the fluid collection in her left abdomen which has been being followed by Dr. Daniel after hernia repair for hernia following left nephrectomy for renal cell carcinoma. Dr. Daniel had arranged outpatient antibiotics and daily IVF, but in spite of this, she felt she could nto keep enough liquid down to avoid returning to the ER. Date seen by provider: Dec 27, 2017 Time Seen by Provider: 16:15 Home Medications Allergies Coded Allergies: meperidine (Verified Allergy, Unknown, 08/20/17) penicillin G (Verified Allergy, Unknown, 08/20/17) vancomycin (Unverified Adverse Reaction, Intermediate, severe itching, ) FAE-Phbumi-Btrduu Hx Past Medical History PMHx: Chronic pancreatitis Chronic tension headache Chronic pancreatitis Asthma PTSD Trichotillomania Restless leg syndrome Renal cell carcinoma s/p left nephrectomy Chronic fatigue SurgHx: Left nephrectomy Knee arthroscopy x 2 Coccyx surgery Tonsillectomy and adenoidectomy Appendectomy 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 Cholecystectomy Hernia repair Family Medical History Family History: Cardiovascular disease 19 FATHER Completed stroke 19 FATHER Diabetes mellitus 19 FATHER Hypercholesterolemia 19 FATHER 19 MOTHER Hypertension 19 FATHER 19 MOTHER Neoplasm 19 MOTHER Psychosocial problem 19 FATHER 19 MOTHER Physical Exam-([facility]) Physical Exam General Appearance: WD/WN, no apparent distress Eyes: Bilateral Eye EOMI Respiratory: lungs clear, normal breath sounds, no respiratory distress Gastrointestinal: normal bowel sounds, soft, other (mild TTP to left lower abd) Neurologic/Psychiatric: alert, normal mood/affect Skin: normal color, warm/dry Assessment/Plan Assessment/Plan Admission Status: Observation Assessment & Plan Intractable nausea/vomiting- will carefully document ins and outs as the clinical report of continuous vomiting seems less likely with normal labs and vital signs. IV anti-emetics as needed. Blood culture positive for enterococcus- on 12/18, one of two sites positive for enterococcus and coag neg staph. IV antibiotics per Dr. Daniel. Intraabdominal fluid collection had decreased at last CT, management per Dr. Kido C diff colitis- completed treatment, by clinical report sounds resolved, if liquid stools, consider recheck, but stools can remain positive after treatment so if stools are formed, will not repeat testing Left lung nodules- stable on last CT 12/18 (report on 12/18/2017 CT ab/pelvis reports 1.7 cm left lower lobe stable since 02/2017 and 0.8 cm left lower lobe nodule stable, but I do not find report from 02/2017 in this EMR; 09/02/17 CT abd/ pelvis noted 14 mm pleural based nodule lateral LL base noted and was also noted at 1.4 cm on 08/12/17 CT abd/pelvis), dedicated CT of chest was ordered outpatient at the end of October and rescheduled twice which she has not attended, has follow up at [facility] in [place] next month although she has not had any formal diagnosis. DVT ppx- SCDs, enoxaparin Supervisory-Addendum Brief Supervisory Addendum Patient seen and evaluated by me, agree with documentation by MS3 Vladimir Durbin except where it differs from my notes. ROCHELLE DURBIN MEDICAL STUDENT Dec 27, 2017 1:27 pm CARMEN GIBBS MD Dec 27, 2017 9:20 pm
[2017-12-27 13:53] LABS: BILIRUBIN,URINE NEGATIVE (NEGATIVE); CLARITY,URINE CLEAR; COLOR,URINE YELLOW; GLUCOSE, URINE (UA) NEGATIVE (NEGATIVE); KETONES,URINE NEGATIVE (NEGATIVE); LEUKOCYTE ESTERASE ,URINE NEGATIVE (NEGATIVE); NITRITE,URINE NEGATIVE (NEGATIVE); PH,URINE 6 (5-9); PROTEIN,URINE NEGATIVE (NEGATIVE); UROBILINOGEN,URINE NORMAL (NORMAL)
[2017-12-27] MEDS: NS IV 1000 ML 1,000 ML IV SCH (13:55)
[2017-12-27] MEDS ORDERED: PROMETHAZINE INJ 25 MG/ML (PHENERGAN) AMP IVP PRN (14:00)
[2017-12-27 14:06] LABS: BACTERIA,URINE TRACE /HPF; SQUAMOUS EPITHELIAL CELL,UR 0-2 /HPF; WBC,URINE RARE /HPF
[2017-12-27] MEDS ORDERED: HYDR30CR95 TOP (14:20)
[2017-12-27] MEDS ORDERED: PROM25TA14 PO (14:20)
[2017-12-27] MEDS ORDERED: [UNRECOGNIZED DRUG - CODE] PO (14:28)
[2017-12-27 16:54] VITALS: BP 107/72
[2017-12-27] MEDS: ONDANSETRON 4 MG/2 ML (SDV) Z0FRAN IVP PRN (17:32)
--- NOTE | 2017-12-27 17:33 | CONSULTATION REPORT ---
DATE OF SERVICE: 12/27/2017 ATTENDING PRIMARY CARE PHYSICIAN: Mary Whittington MD. HISTORY OF PRESENT ILLNESS: The patient is a 32-year-old female known to us. We had initially seen her for multiple abscesses in the submental region of the face as well as history of polyhidrosis and idiopathic chronic pancreatitis. She has had a tumultuous history as well as significant depression and a known manifestation of trichotillomania. She did have some abdominal pain and underwent a CT scan which did show a left kidney mass and found to have a stage III, left renal cell cancer and underwent left nephrectomy as well as excision of a liver lesion. She also does have left lung nodule which needs further evaluation. We had seen her for a palpable bulge as well as CT scan findings of an incisional hernia from her previous nephrectomy site. On 08/22/2017, she underwent an open ventral abdominal incisional hernia repair with mesh with an external oblique overlying the hernia consistent more with incisional spigelian hernia. After surgery, she did have multiple episodes of seroma formation and did undergo multiple percutaneous drainages, which have been clear serosanguineous consistent with a seroma. She has had worsening issues with nausea and vomiting. This is not a new issue for she does have a known history of chronic idiopathic pancreatitis. She does have a number of specialists at [facility] including a longitudinal float operator, urologist, ski instructor as well as an oncologist. She was recently seen by her ski instructor and at that time, she was having red blood per rectum and diarrhea and was started on metronidazole for C. diff positive stools. A CT scan was performed on a previous visit, which did show decreased size of the fluid collection; however, there was some adjacent edema and inflammation as well as a loop of small bowel coursing through the area, approximately a fluid collection and that a fistula could not be ruled out. Upon examination; however, the wound is clean, dry and intact with no surrounding redness or erythema and appears to be healing well. Blood cultures were drawn, which were positive for Enterococcus faecalis and staph. Due to her nausea and vomiting as well as these are the findings, we did have her undergo PICC line placement as well as IV antibiotics and IV fluids. She reports that she has had recurrent episodes of nausea and vomiting despite medical therapy. Upon further questioning today, she reports that she does feel okay and that she feels that the nausea and vomiting is on an intermittent basis. Again, when asked about the significance of stress in her life as well as depression, she does state that this is significant and this might also include a psychosomatic issue with her medical problems. Recent laboratory work did show normal albumin as well as other labs that would argue against a persistent nausea and vomiting and dehydration. At the very least that she will need treatment for the positive blood cultures as well as the Clostridium difficile colitis. PAST MEDICAL HISTORY: 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, idiopathic chronic pancreatitis, depression, trichotillomania, anxiety, restless leg syndrome, left renal cell cancer, left incisions, spigelian hernia. PAST SURGICAL HISTORY: Open total hysterectomy and appendectomy, 2012; bilateral knee arthroscopy, 2011; laparoscopic cholecystectomy 2006; right knee arthroscopy x2, 2014; excision of submental lymph node which was benign; left nephrectomy on 04/11/2017; open incisional spigelian hernia repair on 08/22/2017. ALLERGIES: DEMEROL, FENTANYL, AND PENICILLIN. CURRENT MEDICATIONS: Prozac 60 mg daily, estradiol 3 mg daily, ropinirole 2 mg daily, vitamin B12, vitamin D daily, and ibuprofen daily. SOCIAL HISTORY: Negative smoke, negative alcohol. FAMILY HISTORY: Mother, ovarian cancer. Maternal grandmother, ovarian cancer. Maternal grandfather gastric cancer. Maternal uncle, pancreatic cancer. VITAL SIGNS: Stable, afebrile. REVIEW OF SYSTEMS: This is a well-nourished female, in no acute distress. She is not experiencing shortness of breath or difficulty breathing. No chest pain, palpitations, diaphoresis. Intermittent episodes of nausea with dry heaving; however, no significant emesis. She states that at this time, she does not have any episodes of diarrhea and does not report any red blood per rectum nor any dark tarry stools. No fever or chills, no recent inadvertent weight loss. All other review of systems is negative. PHYSICAL EXAMINATION: CHEST: Clear. Good breath sounds bilaterally. HEART: Regular, no murmurs. HEENT: No scleral icterus. NECK: No cervical lymphadenopathy. EXTREMITIES: Bilateral lower extremity edema +1/3. Negative Homans sign. ABDOMEN: Soft, nondistended. There is pain upon on palpation of the previous incisional hernia site; however, there is no redness, erythema, fistulous tracts as well as no fluctuance to indicate an abscess or seroma formation as well as no recurrent hernia. SKIN: Warm, dry. ASSESSMENT AND PLAN: A 32-year-old female with C. difficile colitis and blood cultures positive for infection. She also has persistent episodes of nausea and vomiting; however, this may be multifactorial. The differential is wide; however, it may be related to idiopathic chronic pancreatitis as well as Clostridium difficile colitis. The question of a psychosomatic issue and malingering also as a part of the differential. We will continue with medical management for now with IV hydration, oral metronidazole as well as IV Zyvox as well as antinausea medications. Job ID: [id number] DocumentID: [id number] Dictated Date: 12/27/2017 15:30:12 Ophthalmic Asst Date: 12/27/2017 17:32:40 Dictated By: YUNIOR LYLES MD
[2017-12-27 20:10] VITALS: BP 165/74
[2017-12-27] MEDS: LINEZOLID 600MG/300ML IVPB (PRE-MIX) IV SCH (21:06)
[2017-12-27] MEDS ORDERED: ENOXAPARIN 40 MG/0.4 ML (LOVENOX) SYR SQ SCH (22:30)
[2017-12-27 23:09] VITALS: BP 121/66
[2017-12-27 23:53] VITALS: BP 141/65
[2017-12-28] MEDS: ONDANSETRON 4 MG/2 ML (SDV) Z0FRAN IVP PRN ×3 (00:12→09:56)
[2017-12-28] MEDS: NS IV 1000 ML 1,000 ML IV SCH ×2 (02:00→20:16)
[2017-12-28 04:16] VITALS: BP 147/73
[2017-12-28 08:00] VITALS: BP 144/72
--- NOTE | 2017-12-28 09:56 | Progress Note (SOAP) ---
Subjective Subjective/Events-last exam Patient's main concern today is her left upper extremity is somewhat painful rating it 7/10. She also has had some swelling of the left upper extremity. She had PICC line placed a few days ago. Apparently the PICC line does flush but the nurse has switched over to a different IV site on the right hand to complete her IV medications. Her nausea and vomiting is better controlled with Zofran but she still reports having a little bit. Review of Systems Date Seen by Provider: Dec 28, 2017 Time Seen by Provider: 08:15 Focused Exam Lactate Level 12/27/17 10:45: Lactic Acid Level 1.32 Objective Exam Last Set of Vital Signs Vital Signs Date Time Temp Pulse Resp B/P (MAP) Pulse Ox O2 Delivery O2 Flow Rate FiO2 12/28/17 04:16 97.5 76 18 147/73 (97) 96 Room Air Capillary Refill : Less Than 3 Seconds I&O Intake and Output 12/28/17 00:00 Intake Total 2080 ml Output Total 650 ml Balance 1430 ml Intake Oral 1080 ml IV Total 1000 ml Output Urine Total 650 ml Daily Weight Change No General: No Acute Distress Neck: Supple Lungs: Clear to Auscultation Heart: Regular Rate Extremities: Other (She does have slight edema of the left upper extremity and she is tender with palpation near the anterior aspect of the shoulder) Psych/Mental Status: Mental Status NL Results/Procedures Lab Laboratory Tests 12/27/17 10:45: Lactic Acid Level 1.32 12/27/17 10:50: White Blood Count 7.3, Red Blood Count 3.81L, Hemoglobin 10.7L, Hematocrit 33L, Mean Corpuscular Volume 86, Mean Corpuscular Hemoglobin 28, Mean Corpuscular Hemoglobin Concent 33, Red Cell Distribution Width 14.4, Platelet Count 260, Mean Platelet Volume 9.6, Neutrophils (%) (Auto) 64, Lymphocytes (%) (Auto) 27, Monocytes (%) (Auto) 5, Eosinophils (%) (Auto) 3, Basophils (%) (Auto) 0, Neutrophils # (Auto) 4.7, Lymphocytes # (Auto) 2.0, Monocytes # (Auto) 0.4, Eosinophils # (Auto) 0.3, Basophils # (Auto) 0.0, Erythrocyte Sedimentation Rate 57H, Sodium Level 141, Potassium Level 4.2, Chloride Level 108H, Carbon Dioxide Level 24, Anion Gap 9, Blood Urea Nitrogen 12, Creatinine 0.84, Estimat Glomerular Filtration Rate > 60, BUN/Creatinine Ratio 14, Glucose Level 83, Calcium Level 9.1, Total Bilirubin 0.3, Aspartate Amino Transf (AST/SGOT) 29, Alanine Aminotransferase (ALT/SGPT) 14, Alkaline Phosphatase 49, Total Protein 6.5, Albumin 3.5, Lipase 24 12/27/17 13:45: Urine Color YELLOW, Urine Clarity CLEAR, Urine pH 6, Urine Specific [place] 1.010L, Urine Protein NEGATIVE, Urine Glucose (UA) NEGATIVE, Urine Ketones NEGATIVE, Urine Nitrite NEGATIVE, Urine Bilirubin NEGATIVE, Urine Urobilinogen NORMAL, Urine Leukocyte Esterase NEGATIVE, Urine RBC (Auto) NEGATIVE, Urine RBC NONE, Urine WBC RARE, Urine Squamous Epithelial Cells 0-2, Urine Crystals NONE, Urine Bacteria TRACE, Urine Casts NONE, Urine Mucus NEGATIVE, Urine Culture Indicated NO Assessment/Plan Assessment/Plan Admission Status: Inpatient Order (span 2 midnights) Reason for Inpatient Admission: Control nausea vomiting and IV fluid rehydration Assessment & Plan Intractable nausea/vomiting- will carefully document ins and outs as the clinical report of continuous vomiting seems less likely with normal labs and vital signs. IV anti-emetics as needed. 12/28 - improvement noted with Zofran. We will continue with Zofran and taper off as her condition improves. Left upper extremity swelling and pain-exclude DVT 12/28 check venous Doppler today Blood culture positive for enterococcus- on 12/18, one of two sites positive for enterococcus and coag neg staph. IV antibiotics per Dr. Daniel. Intraabdominal fluid collection had decreased at last CT, management per Dr. Daniel C diff colitis- completed treatment, by clinical report sounds resolved, if liquid stools, consider recheck, but stools can remain positive after treatment so if stools are formed, will not repeat testing Left lung nodules- stable on last CT 12/18 (report on 12/18/2017 CT ab/pelvis reports 1.7 cm left lower lobe stable since 02/2017 and 0.8 cm left lower lobe nodule stable, but I do not find report from 02/2017 in this EMR; 09/02/17 CT abd/ pelvis noted 14 mm pleural based nodule lateral LL base noted and was also noted at 1.4 cm on 08/12/17 CT abd/pelvis), dedicated CT of chest was ordered outpatient at the end of October and rescheduled twice which she has not attended, has follow up at [facility] in [place] next month although she has not had any formal diagnosis. DVT ppx- SCDs, enoxaparin Clinical Quality Measures DVT/VTE Risk/Contraindication: Risk Factor Score Per Nursin RFS Level Per Nursing on Admit: 4+=Very High CAROLINA MATHIS MD Dec 28, 2017 09:56
[2017-12-28] MEDS: ENOXAPARIN 60 MG/0.6 ML (LOVENOX) SYR SC SCH ×2 (09:57→20:16)
[2017-12-28] MEDS: LINEZOLID 600MG/300ML IVPB (PRE-MIX) IV SCH ×2 (09:57→20:17)
--- NOTE | 2017-12-28 10:39 | Progress Note (SOAP) ---
Subjective Date Seen by Provider: Dec 28, 2017 Time Seen by Provider: 10:15 Subjective/Events-last exam Patient seen with Dr. Daniel. Patient reports that she is having pain in left upper arm and shoulder. She reports continued nausea but no vomiting. Patient did eat majority of breakfast. Ambulating without difficulty. No fever/chills. Focused Exam Lactate Level 12/27/17 10:45: Lactic Acid Level 1.32 Objective Exam Vital Signs Date Time Temp Pulse Resp B/P (MAP) Pulse Ox O2 Delivery O2 Flow Rate FiO2 12/28/17 08:00 97.8 81 18 144/72 (96) 98 Room Air 12/28/17 04:16 97.5 76 18 147/73 (97) 96 Room Air 12/27/17 23:53 98.9 98 18 141/65 (90) 95 Room Air 12/27/17 23:09 97.9 80 22 121/66 (84) 98 Room Air 12/27/17 16:54 96.7 73 24 107/72 (84) 97 Room Air 12/27/17 13:43 97 Room Air 12/27/17 13:17 97.0 74 20 140/76 (97) 97 Room Air 12/27/17 13:04 79 18 124/89 98 I & O 12/28/17 07:00 Intake Total 2380 ml Output Total 800 ml Balance 1580 ml Capillary Refill : Less Than 3 Seconds General Appearance: No Apparent Distress, WD/WN HEENT: PERRL/EOMI Neck: Full Range of Motion, Normal Inspection, Non Tender, Supple Respiratory: Lungs Clear, Normal Breath Sounds, No Accessory Muscle Use, No Respiratory Distress Cardiovascular: Regular Rate, Rhythm, No Edema Gastrointestinal: normal bowel sounds, non tender, soft Extremity: Normal Capillary Refill, Normal Range of Motion, Other (Tenderness left upper extremity.) Neurologic/Psychiatric: Alert, Oriented x3 Skin: Normal Color, Warm/Dry Results Lab Laboratory Tests 12/27/17 10:45: Lactic Acid Level 1.32 12/27/17 10:50: White Blood Count 7.3, Red Blood Count 3.81L, Hemoglobin 10.7L, Hematocrit 33L, Mean Corpuscular Volume 86, Mean Corpuscular Hemoglobin 28, Mean Corpuscular Hemoglobin Concent 33, Red Cell Distribution Width 14.4, Platelet Count 260, Mean Platelet Volume 9.6, Neutrophils (%) (Auto) 64, Lymphocytes (%) (Auto) 27, Monocytes (%) (Auto) 5, Eosinophils (%) (Auto) 3, Basophils (%) (Auto) 0, Neutrophils # (Auto) 4.7, Lymphocytes # (Auto) 2.0, Monocytes # (Auto) 0.4, Eosinophils # (Auto) 0.3, Basophils # (Auto) 0.0, Erythrocyte Sedimentation Rate 57H, Sodium Level 141, Potassium Level 4.2, Chloride Level 108H, Carbon Dioxide Level 24, Anion Gap 9, Blood Urea Nitrogen 12, Creatinine 0.84, Estimat Glomerular Filtration Rate > 60, BUN/Creatinine Ratio 14, Glucose Level 83, Calcium Level 9.1, Total Bilirubin 0.3, Aspartate Amino Transf (AST/SGOT) 29, Alanine Aminotransferase (ALT/SGPT) 14, Alkaline Phosphatase 49, Total Protein 6.5, Albumin 3.5, Lipase 24 12/27/17 13:45: Urine Color YELLOW, Urine Clarity CLEAR, Urine pH 6, Urine Specific [place] 1.010L, Urine Protein NEGATIVE, Urine Glucose (UA) NEGATIVE, Urine Ketones NEGATIVE, Urine Nitrite NEGATIVE, Urine Bilirubin NEGATIVE, Urine Urobilinogen NORMAL, Urine Leukocyte Esterase NEGATIVE, Urine RBC (Auto) NEGATIVE, Urine RBC NONE, Urine WBC RARE, Urine Squamous Epithelial Cells 0-2, Urine Crystals NONE, Urine Bacteria TRACE, Urine Casts NONE, Urine Mucus NEGATIVE, Urine Culture Indicated NO Assessment/Plan Assessment/Plan Assess & Plan/Chief Complaint A 32 year old female with intractable nausea and vomiting, left upper extremity pain, positive blood cultures for enterococcus and coag neg staph, left lung nodules VSS and Labs WNL Will continue with IV fluids and IV anti-nausea medications prn. Await ultrasound of left upper extremity Continue on IV zosyn It appears that the c-diff has resolved, however if she develops liquid stool then will recheck stools She has an appointment scheduled at [facility] next month Continue with DVT ppx and diet. Clinical Quality Measures DVT/VTE Risk/Contraindication: Risk Factor Score Per Nursin RFS Level Per Nursing on Admit: 4+=Very High FERNY ZHANG FRONT LOADER RESIDENTIAL DRIVER Dec 28, 2017 10:39
--- NOTE | 2017-12-28 11:33 | Diagnostic Imaging Report ---
PROCEDURE: US venous upper extremity left. TECHNIQUE: Multiple realtime grayscale images were obtained of left upper extremity in various projections. Duplex Doppler and and color Doppler images were also obtained. INDICATION: Left upper extremity swelling and pain. COMPARISON: None. FINDINGS: There is a thrombus seen within the cephalic vein surrounding the PICC line. However, the deep system is widely patent. There is no mass or fluid collection. IMPRESSION: Thrombosed cephalic vein. No DVT identified. Dictated by: Dictated on workstation # [id number]
[2017-12-28 12:00] VITALS: BP 148/75
--- NOTE | 2017-12-28 15:04 | Diagnostic Imaging Report ---
INDICATION: PICC line placement. TIME OF EXAM: 2:48 p.m. Comparison is made with prior study from 12/25/2017. FINDINGS: A left-sided PICC line appears to have the tip overlying the SVC. No pneumothorax is seen. Lungs are clear. Vascularity is normal. No effusion. IMPRESSION: Satisfactory PICC line location. Dictated by: Dictated on workstation # [id number]
[2017-12-28 15:41] VITALS: BP 130/67
[2017-12-28 16:28] LABS: BASOPHILS % (AUTO) 0 % (0-10); EOSINOPHILS # (AUTO) 0.3 10^3/uL (0.0-0.3); EOSINOPHILS % (AUTO) 3 % (0-10); HEMATOCRIT 32 % (35-52); HEMOGLOBIN 10.5 G/DL (11.5-16.0); LYMPHOCYTES % (AUTO) 27 % (12-44); MEAN CORPUSCULAR HEMOGLOBIN 29 PG (25-34); MEAN CORPUSCULAR HGB CONC 33 G/DL (32-36); MEAN CORPUSCULAR VOLUME 86 FL (80-99); MEAN PLATELET VOLUME 10.4 FL (7.4-10.4); MONOCYTES # (AUTO) 0.5 X 10^3 (0.0-1.0); MONOCYTES % (AUTO) 6 % (0-12); NEUTROPHILS # (AUTO) 4.7 X 10^3 (1.8-7.8); NEUTROPHILS % (AUTO) 63 % (42-75); PLATELET COUNT 254 10^3/uL (130-400); RED BLOOD COUNT 3.69 10^6/uL (4.35-5.85); RED CELL DISTRIBUTION WIDTH 14.2 % (10.0-14.5); WHITE BLOOD COUNT 7.5 10^3/uL (4.3-11.0)
[2017-12-28 16:50] LABS: ALANINE AMINOTRANSFERASE 13 U/L (0-55); ALBUMIN 3.4 GM/DL (3.2-4.5); ALKALINE PHOSPHATASE 50 U/L (40-136); BILIRUBIN,TOTAL 0.2 MG/DL (0.1-1.0); BUN/CREATININE RATIO 11; CALCIUM 9.1 MG/DL (8.5-10.1); CARBON DIOXIDE 24 MMOL/L (21-32); CHLORIDE 106 MMOL/L (98-107); CREATININE SERUM 0.95 MG/DL (0.60-1.30); GFR ESTIMATED > 60; GLUCOSE 109 MG/DL (70-105); POTASSIUM 3.6 MMOL/L (3.6-5.0); SODIUM 140 MMOL/L (135-145); TOTAL PROTEIN 6.4 GM/DL (6.4-8.2)
[2017-12-28] MEDS: PROMETHAZINE 25 MG (PHENERGAN) TAB PO PRN (17:33)
[2017-12-28 19:39] VITALS: BP 125/60
[2017-12-28] MEDS: ONDANSETRON 8 MG (ZOFRAN) ORAL DISSOLVE TAB PO SCH (20:16)
[2017-12-28] MEDS: ESTRADIOL 1 MG TAB (ESTRACE) PO SCH (20:17)
[2017-12-28] MEDS: rOPINIRole 1 MG (REQUIP) TABLET PO SCH (20:17)
[2017-12-28] MEDS ORDERED: NON-FORMULARY MEDICATION 1 EA EA (Fluoxetine HCl 40 MG) PO SCH (21:00)
[2017-12-29] VITALS: BP 130/71
[2017-12-29] MEDS: NS IV 1000 ML 1,000 ML IV SCH ×2 (00:38→13:46)
[2017-12-29] MEDS: ONDANSETRON 4 MG/2 ML (SDV) Z0FRAN IVP PRN ×2 (00:38→17:39)
[2017-12-29 04:00] VITALS: BP 130/63
[2017-12-29 08:00] VITALS: BP 133/65
--- NOTE | 2017-12-29 08:07 | Progress Note (SOAP) ---
Subjective Subjective/Events-last exam Today patient reports that she is still having issues with nausea and vomiting. She reports she is getting by with the Zofran. She also has concerns regarding her left upper extremity and the discomfort. She is keeping her left upper extremity in a sling at this point. She does also report that she had loose stools yesterday. Review of Systems Date Seen by Provider: Dec 29, 2017 Time Seen by Provider: 07:10 Focused Exam Lactate Level 12/27/17 10:45: Lactic Acid Level 1.32 Objective Exam Last Set of Vital Signs Vital Signs Date Time Temp Pulse Resp B/P (MAP) Pulse Ox O2 Delivery O2 Flow Rate FiO2 12/29/17 04:00 97.8 81 20 130/63 (85) 96 Room Air Capillary Refill : Less Than 3 Seconds I&O Intake and Output 12/29/17 00:00 Intake Total 1950 ml Output Total 450 ml Balance 1500 ml Intake Oral 1350 ml IV Total 600 ml Output Urine Total 450 ml # Voids 2 # Emeses 1 General: No Acute Distress HEENT: Mucous Memb Moist/[place] Lungs: Clear to Auscultation Heart: Regular Rate Abdomen: Soft (With bowel sounds that appear to be normal) Extremities: Other (There is no further soft tissue swelling of the left upper extremity specifically around the shoulder.) Results/Procedures Lab Laboratory Tests 12/28/17 14:52: White Blood Count 7.5, Red Blood Count 3.69L, Hemoglobin 10.5L, Hematocrit 32L, Mean Corpuscular Volume 86, Mean Corpuscular Hemoglobin 29, Mean Corpuscular Hemoglobin Concent 33, Red Cell Distribution Width 14.2, Platelet Count 254, Mean Platelet Volume 10.4, Neutrophils (%) (Auto) 63, Lymphocytes (%) (Auto) 27 , Monocytes (%) (Auto) 6, Eosinophils (%) (Auto) 3, Basophils (%) (Auto) 0, Neutrophils # (Auto) 4.7, Lymphocytes # (Auto) 2.0, Monocytes # (Auto) 0.5, Eosinophils # (Auto) 0.3, Basophils # (Auto) 0.0, Sodium Level 140, Potassium Level 3.6, Chloride Level 106, Carbon Dioxide Level 24, Anion Gap 10, Blood Urea Nitrogen 10, Creatinine 0.95, Estimat Glomerular Filtration Rate > 60, BUN/ Creatinine Ratio 11, Glucose Level 109H, Calcium Level 9.1, Total Bilirubin 0.2 , Aspartate Amino Transf (AST/SGOT) 28, Alanine Aminotransferase (ALT/SGPT) 13, Alkaline Phosphatase 50, Total Protein 6.4, Albumin 3.4 Microbiology 12/27/17 Blood Culture - Preliminary, Resulted No growth Assessment/Plan Assessment/Plan Assessment & Plan Intractable nausea/vomiting- will carefully document ins and outs as the clinical report of continuous vomiting seems less likely with normal labs and vital signs. IV anti-emetics as needed. 12/28 - improvement noted with Zofran. We will continue with Zofran and taper off as her condition improves. 12/29 - today I spoke with patient about utilizing Zofran at home. She does have Zofran at home already but she does have concerns regarding her abdomen. Left upper extremity swelling and pain-exclude DVT 12/28 check venous Doppler today 12/29 patient was found to have no deep vein thrombosis but more superficial and this is near the site of her PICC line. Blood culture positive for enterococcus- on 12/18, one of two sites positive for enterococcus and coag neg staph. IV antibiotics per Dr. Daniel. Intraabdominal fluid collection had decreased at last CT, management per Dr. Daniel C diff colitis- completed treatment, by clinical report sounds resolved, if liquid stools, consider recheck, but stools can remain positive after treatment so if stools are formed, will not repeat testing Left lung nodules- stable on last CT 12/18 (report on 12/18/2017 CT ab/pelvis reports 1.7 cm left lower lobe stable since 02/2017 and 0.8 cm left lower lobe nodule stable, but I do not find report from 02/2017 in this EMR; 09/02/17 CT abd/ pelvis noted 14 mm pleural based nodule lateral LL base noted and was also noted at 1.4 cm on 08/12/17 CT abd/pelvis), dedicated CT of chest was ordered outpatient at the end of October and rescheduled twice which she has not attended, has follow up at [facility] in [place] next month although she has not had any formal diagnosis. DVT ppx- SCDs, enoxaparin Clinical Quality Measures DVT/VTE Risk/Contraindication: Risk Factor Score Per Nursin RFS Level Per Nursing on Admit: 4+=Very High CAROLINA MATHIS MD Dec 29, 2017 08:07
[2017-12-29] MEDS: LINEZOLID 600MG/300ML IVPB (PRE-MIX) IV SCH ×2 (08:46→20:13)
[2017-12-29] MEDS: ENOXAPARIN 60 MG/0.6 ML (LOVENOX) SYR SC SCH ×2 (08:47→20:13)
--- NOTE | 2017-12-29 09:56 | Progress Note (SOAP) ---
Subjective Date Seen by Provider: Dec 29, 2017 Time Seen by Provider: 09:30 Subjective/Events-last exam Patient seen with Dr. Daniel. Patient reports doing ok. Had 3 episode of vomiting last night after having a slush. Still complains of LUE and shoulder pain. No fever/chills. Tolerating liquids and diet. Focused Exam Lactate Level 12/27/17 10:45: Lactic Acid Level 1.32 Objective Exam Vital Signs Date Time Temp Pulse Resp B/P (MAP) Pulse Ox O2 Delivery O2 Flow Rate FiO2 12/29/17 08:00 98.1 86 24 133/65 (87) 96 Room Air 12/29/17 04:00 97.8 81 20 130/63 (85) 96 Room Air 12/29/17 00:00 97.9 78 20 130/71 (90) 95 Room Air 12/28/17 19:39 96.6 69 16 125/60 (81) 96 Room Air 12/28/17 15:41 97.6 79 16 130/67 (88) 98 Room Air 12/28/17 12:00 97.6 75 18 148/75 (99) 97 Room Air I & O 12/29/17 06:59 Intake Total 3050 ml Output Total 600 ml Balance 2450 ml Capillary Refill : Less Than 3 Seconds General Appearance: No Apparent Distress, WD/WN HEENT: PERRL/EOMI Neck: Full Range of Motion, Normal Inspection, Non Tender, Supple Respiratory: Lungs Clear, Normal Breath Sounds, No Accessory Muscle Use, No Respiratory Distress Cardiovascular: Regular Rate, Rhythm, No Edema Gastrointestinal: normal bowel sounds, soft, tenderness (LLQ) Extremity: Normal Capillary Refill, Other (Pain LUE) Neurologic/Psychiatric: Alert, Oriented x3 Skin: Normal Color, Warm/Dry Results Lab Laboratory Tests 12/28/17 14:52: White Blood Count 7.5, Red Blood Count 3.69L, Hemoglobin 10.5L, Hematocrit 32L, Mean Corpuscular Volume 86, Mean Corpuscular Hemoglobin 29, Mean Corpuscular Hemoglobin Concent 33, Red Cell Distribution Width 14.2, Platelet Count 254, Mean Platelet Volume 10.4, Neutrophils (%) (Auto) 63, Lymphocytes (%) (Auto) 27 , Monocytes (%) (Auto) 6, Eosinophils (%) (Auto) 3, Basophils (%) (Auto) 0, Neutrophils # (Auto) 4.7, Lymphocytes # (Auto) 2.0, Monocytes # (Auto) 0.5, Eosinophils # (Auto) 0.3, Basophils # (Auto) 0.0, Sodium Level 140, Potassium Level 3.6, Chloride Level 106, Carbon Dioxide Level 24, Anion Gap 10, Blood Urea Nitrogen 10, Creatinine 0.95, Estimat Glomerular Filtration Rate > 60, BUN/ Creatinine Ratio 11, Glucose Level 109H, Calcium Level 9.1, Total Bilirubin 0.2 , Aspartate Amino Transf (AST/SGOT) 28, Alanine Aminotransferase (ALT/SGPT) 13, Alkaline Phosphatase 50, Total Protein 6.4, Albumin 3.4 Microbiology 12/27/17 Blood Culture - Preliminary, Resulted No growth Assessment/Plan Assessment/Plan Assess & Plan/Chief Complaint A 32 year old female with intractable nausea and vomiting, left upper extremity pain, positive blood cultures for enterococcus and coag neg staph, left lung nodules VSS and Labs WNL Will continue with IV fluids and IV anti-nausea medications prn. Continue on IV zosyn It appears that the c-diff has resolved, however if she develops liquid stool then will recheck stools She has an appointment scheduled at [facility] next month Ultrasound showed cephalic vein clot near PICC line. Continue with DVT ppx and diet. Clinical Quality Measures DVT/VTE Risk/Contraindication: Risk Factor Score Per Nursin RFS Level Per Nursing on Admit: 4+=Very High FERNY ZHANG MANDARIN TUTOR Dec 29, 2017 9:56 am
[2017-12-29] MEDS: ONDANSETRON 8 MG (ZOFRAN) ORAL DISSOLVE TAB PO SCH ×2 (10:38→20:13)
[2017-12-29 12:00] VITALS: BP 119/61
[2017-12-29 16:30] VITALS: BP 152/76
[2017-12-29 17:11] VITALS: BP 152/76
[2017-12-29] MEDS: rOPINIRole 1 MG (REQUIP) TABLET PO SCH (20:13)
[2017-12-29] MEDS: ESTRADIOL 1 MG TAB (ESTRACE) PO SCH (20:13)
[2017-12-30] VITALS: BP 122/62
[2017-12-30] MEDS: NS IV 1000 ML 1,000 ML IV SCH ×2 (02:10→12:00)
[2017-12-30 08:00] VITALS: BP 123/71
[2017-12-30] MEDS: ONDANSETRON 8 MG (ZOFRAN) ORAL DISSOLVE TAB PO SCH (08:44)
[2017-12-30] MEDS: LINEZOLID 600MG/300ML IVPB (PRE-MIX) IV SCH (08:44)
[2017-12-30] MEDS: ENOXAPARIN 60 MG/0.6 ML (LOVENOX) SYR SC SCH (08:44)
[2017-12-30] MEDS: PROMETHAZINE 25 MG (PHENERGAN) TAB PO PRN (13:29)
--- NOTE | 2017-12-30 14:04 | Discharge Summary ---
Diagnosis/Chief Complaint Date of Admission Dec 29, 2017 at 16:30 Date of Discharge 12/30/2017 Admission Diagnosis Admission Diagnosis Intractable N/V Blood cultures + Enterococcus C diff Colitis Left Lung nodules Superficial thrombus associated with picc line Discharge Diagnosis See Above Chief Complaint/HPI Chief Complaint/HPI 32 yo female with complicated medical history including chronic intermittent abdominal pain and nausea and vomiting secondary to chronic pancreatitis among other suspected causes. She was having hematochezia and reported diarrhea whens he last saw her GI physician at and they ordered stool studies. On 12/13, she was notified her C diff testing was positive and she came to the ER where she was prescribed metronidazole for 10 days. Currently, she initially complained of diarrhea, but on further questioning, she states she has a bowel movement every time she eats, which are now formed stools with no further hematochezia. She also has had trouble with nausea and vomiting and reports she has been unable to keep anything down for as long as a month, but also states she has been able to take her antibiotics. On a repeat ER visit 12/18, she had blood cultures drawn and one of the two sites grew enterococcus and coag neg staph and she had a CT of her abdomen which showed decrease in the fluid collection in her left abdomen which has been being followed by Dr. Daniel after hernia repair for hernia following left nephrectomy for renal cell carcinoma. Dr. Daniel had arranged outpatient antibiotics and daily IVF, but in spite of this, she felt she could nto keep enough liquid down to avoid returning to the ER. Discharge Summary-Simple/Stand Consultations Dr Daniel, General Surgery Discharge Physical Examination Allergies: Coded Allergies: meperidine (Verified Allergy, Unknown, 08/20/17) penicillin G (Verified Allergy, Unknown, 08/20/17) vancomycin (Unverified Adverse Reaction, Intermediate, severe itching, ) Vitals & I&Os Vital Sign - Last 12Hours Date Time Temp Pulse Resp B/P (MAP) Pulse Ox O2 Delivery O2 Flow Rate FiO2 12/30/17 08:00 97.7 74 18 123/71 (88) 96 Room Air Intake and Output 12/30/17 00:00 Intake Total 2850 ml Output Total 400 ml Balance 2450 ml General Appearance: Alert, Oriented X3, Cooperative, No Acute Distress HEENT: Mucous Memb Moist/[place] Respiratory: Clear to Auscultation, Normal Air Movement Cardiovascular: Regular Rate, No Murmurs Abdominal: Normal Bowel Sounds, Soft, No Hepatosplenomegaly, Other (mild tenderness to palpation) Extremities: No Edema, No Tenderness/Swelling Neuro: Normal Gait, Normal Speech, Strength at 5/5 X4 Ext, Cranial Nerves 3-12 NL Psych/Mental Status: Mental Status NL, Mood NL Hospital Course See final discharge diagnosis. Discussion & Recommendations 32 yo F with recent admissions and outpatient treatment with IV antibiotics for Enterococcus Intractable N/V: Improved with IVF hydration and scheduled zofran and phenergen alternating. Patient was able to tolerate bland diet prior to discharge. Blood cultures + Enterococcus: Completed IV antibiotics while admitted. C diff Colitis: Has completed treatment. Left Lung nodules: Has rescheduled outpatient CT multiple times. States that she has appt in [place] to get followed. Superficial thrombus associated with picc line: Discussed picc line with Dr Daniel and he stated that he wanted it left in and he would manage it as an outpatient. Discharge Condition at discharge stable Instructions to patient/family Please see electronic discharge instructions given to patient. Discharge Medications Reviewed and agree with Discharge Medication list on patient's Discharge Instruction sheet Clinical Quality Measures DVT/VTE Risk/Contraindication: Risk Factor Score Per Nursin RFS Level Per Nursing on Admit: 4+=Very High Copy Copies To 1: CARMEN GIBBS MD, HOLLY R MD Dec 30, 2017 14:04
--- NOTE | 2017-12-30 14:21 | Discharge Instructions ---
Discharge [facility] Discharge Medications New, Converted or Re-Newed RX: Other (No new meds) Continued Medications: Acetaminophen (Tylenol Extra Strength) 500 Mg Tablet 500-1000 MG PO Q6H PRN for PAIN-MODERATE, TAB Cyanocobalamin (Cyanocobalamin Injection) 1,000 Mcg/Ml Inj 1000 MCG IJ MONTHLY, VIAL Estradiol (Estradiol Tablet) 2 Mg Tablet 2 MG PO HS, TAB Fluoxetine HCl (Fluoxetine HCl) 40 Mg Capsule 40 MG PO HS, CAP Hydrocortisone (Procto-Med Hc) 30 Gm Cream.appl TOP DAILY PRN for INFLAMMATION, EA Lipase/Protease/Amylase (Viokace 20,880-78,300 Units Tb) 1 Each Tablet PO UD, TAB TAKE 3 TABLETS WITH MEALS AND 2 TABLETS WITH SNACKS (HAS NOT STARTED TAKING DUE TO NOT BEING ABLE TO KEEP ANYTHING DOWN BUT DID STRIKE OUT MACHINE OPERATOR THE SCRIPT) Ondansetron (Ondansetron Odt) 8 Mg Tab.rapdis 8 MG PO BID, TAB Promethazine HCl (Promethazine Tablet) 25 Mg Tablet 25 MG PO Q6H PRN for NAUSEA/VOMITING-2ND LINE, TAB Ropinirole HCl (Ropinirole HCl) 4 Mg Tablet 4 MG PO HS, TAB Discontinued Medications: Bisacodyl (Women's Laxative) 5 Mg Tablet 5-10 MG PO DAILY PRN for CONSTIPATION-4TH LINE, TAB Diphenhydramine HCl (Benadryl) 25 Mg Capsule 25 MG PO Q6H PRN for ALLERGIES, CAP Hydrocodone/Acetaminophen (Hydrocodone-Acetamin 7.5-325) 1 Each Tablet 1-2 TAB PO Q4H PRN for PAIN-MODERATE, TAB Patient Instructions Goal/Follow Up Appt: Will call with appt Patient Instructions: - Discussed the importance of advancing your diet slowly - make sure to follow up with Dr Daniel Activity & Diet Discharge Diet: Eat Small Frequent Meals Copy Copies To 1: CARMEN GIBBS MD, HOLLY R MD Dec 30, 2017 14:16
--- NOTE | 2018-01-01 20:08 | Physician Query-Final Dx ---
SARA WILKINS 01/01/182006: Final Diagnosis Give Final Diagnosis Please give Final Diagnosis EWELINA SHIELDS MD 01/05/182138: Final Diagnosis Give Final Diagnosis Please see D/c summary SARA WILKINS Jan 01, 2018 20:07 EWELINA SHIELDS MD Jan 05, 2018 21:39
--- OUTSIDE RECORDS SUMMARY | 2018-01-02 16:10 | XMS REPORT | Clinical Summary ---
Author Author [facility] Organization [facility] Address Unknown Phone Unavailable Care Team Providers Care Skewer Up Name Role Phone Michael Sutton MD Unavailable [...] in the Health Information Management department at [phone] for further assistance in locating additional records.[facility] Allergies Active Allergy Reactions Severity Noted [...] DAYS 18 mcg/mL injectionIndications: Medication monitoring encounter [id number] Take 3 tablets by mouth 300 tablet [...] Overview: Added automatically from request for surgery [id number] 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 06/24/2013 Overview: S/P HOLLAND, BSO 11/27 [...] Poe MD Results 10/22/2017 Hospital Radiology Encounter 05/06/2017 Procedure Pass Radiology 05/06/2017 Procedure Pass [...] Laboratory Stool - Feces MAIN LAB [address] [place] [address] * GIARDIA SCREEN,FECAL (12/11/2017) Specimen Performing Laboratory Feces MAIN LAB [address] [place] [address] * CULTURE-FECES W/SENSITIVITY (12/11/2017) Specimen Performing Laboratory Stool - Feces MAIN LAB [address] [place] [address] * CRYPTOSPORIDUM,FECAL (12/11/2017) Specimen Performing Laboratory Stool - Feces [facility] MAIN LAB [address] [place] [address] * BASIC METABOLIC PANEL (12/09/2017 11:38 AM) [...] Specimen Performing Laboratory Blood [facility] [address] [place] [address] * POC CREATININE, RAD (12/09/2017 9:55 AM) Component Value Ref Range Creatinine, POC 0.8 0.4 - 1.00 MG/DL Specimen Performing Laboratory [facility] MAIN LAB [address] [place] [address] * CT ABDOMEN W CONTRAST (12/09/2017 9:55 [...]
--- OUTSIDE RECORDS SUMMARY | 2018-01-02 16:12 | XMS REPORT | Encounter Summary ---
Author Author [facility] Address Unknown Phone Unavailable Care Team Providers Care Metal Storage Worker Name Role Phone Michael Sutton MD Unavailable Unavailable Mary Whittington MD PCP Jessica Valera Unavailable Maggie Puente Unavailable Unavailable Mary Telles APRN Unavailable Bam Ritter MD Unavailable Radha Bo LPN Unavailable Unavailable Jose Sanchez MD Unavailable Encounter Details Date Type Department Care Team Description 12/09/2017 Procedure Pass [facility] Cancer [place] - [facility] Exam [place] [facility] [address] [phone] Social History Tobacco Use Types Packs/Day Years [...]
--- OUTSIDE RECORDS SUMMARY | 2018-01-02 16:26 | XMS REPORT | Encounter Summary ---
Author Author [facility] Organization [facility] Address Unknown Phone Unavailable Care Team Providers Care Production Weigher Name Role Phone Michael Sutton MD Unavailable Unavailable Mary Whittington MD PCP Jessica Valera Unavailable Maggie Puente Unavailable Unavailable Mary Telles APRN Unavailable Bam Ritter MD Unavailable Radha Bo LPN Unavailable Unavailable Jose Sanchez MD Unavailable Encounter Details Date Type Department Care Team Description 12/09/2017 Procedure Pass [facility] Cancer [place] - WW Exam [place] [facility] [address] [phone] Social History Tobacco Use Types Packs/Day Years [...]
--- OUTSIDE RECORDS SUMMARY | 2018-01-02 16:31 | XMS REPORT | Encounter Summary ---
Author Author [facility] Organization [facility] Address Unknown Phone Unavailable Care Team Providers Care County Extension Agent Name Role Phone Michael Sutton MD Unavailable Unavailable Mary Whittington MD PCP Jessica Valera Unavailable Maggie Puente Unavailable Unavailable Mary Telles APRN Unavailable Bam Ritter MD Unavailable Radha Bo LPN Unavailable Unavailable Jose Sanchez MD Unavailable Reason for Visit * Reason Comments Medication Update Encounter Details Date Type Department Care Team Description 12/25/2017 Telephone [facility] Abel Poe MD Medication Update [facility] - WW Exam [address] [facility] Cancer [facility] [place] [address] [place] [address] [address] [facility] [address] [phone] [place] [address] [phone] Social History Tobacco Use Types Packs/Day Years [...] from her abd mesh. Her doctors in [place] asked her to keep her physicians here in the loop. Will relay info to Dr. Poe. in this encounter Plan of Treatment Date Type Specialty Care Team Description 12/09/2017 Procedure Pass Oncology 12/09/2017 Procedure Pass Oncology as of this encounter Visit Diagnoses Not on filein this encounter
--- OUTSIDE RECORDS SUMMARY | 2018-01-02 16:32 | XMS REPORT | Encounter Summary ---
Author Author [facility] Organization [facility] Address Unknown Phone Unavailable Care Team Providers Care Clam Treader Name Role Phone Michael Sutton MD Unavailable Unavailable Mary Whittington MD PCP Jessica Valera Unavailable Maggie Puente Unavailable Unavailable Mary Telles APRN Unavailable Bam Ritter MD Unavailable Radha Bo LPN Unavailable Unavailable Jose Sanchez MD Unavailable Reason for Visit * Reason Comments Medication Follow-up Encounter Details Date Type Department Care Team Description 12/17/2017 Telephone [facility] Jessica Valera ARNP Medication Follow-up Physicians [address] Ortho and Medical [place] [address] [place] [address] [address] [facility] [phone] [place] [address] Social History Tobacco Use Types [...] diarrhea. Spoke w/ Pao at [facility] who states pt has picked up [...]
--- OUTSIDE RECORDS SUMMARY | 2018-01-02 16:37 | XMS REPORT | Encounter Summary ---
Author Author [facility] Organization [facility] Address Unknown Phone Unavailable Care Team Providers Care Medical Technologist Generalist Name Role Phone Michael Sutton MD Unavailable Unavailable Mary Whittington MD PCP UtJessica weaver Unavailable Maggie Puente Unavailable Unavailable Mary Telles APRN Unavailable Bam Ritter MD Unavailable Radha Bo LPN Unavailable Unavailable Jose Sanchez MD Unavailable Encounter Details Date Type Department Care Team Description 12/17/2017 Orders Only [facility] Jessica Valera ARNP Diarrhea, unspecified Physicians [address] type Ortho and Medical [place] [address] [place] [address] [phone] [place] [address] Social History Tobacco Use Types [...] Performing Laboratory Stool - Feces MAIN LAB [address] [place] [address] * GIARDIA SCREEN,FECAL (12/11/2017) Specimen Performing Laboratory Feces MAIN LAB [address] [place] [address] * CRYPTOSPORIDUM,FECAL (12/11/2017) Specimen Performing Laboratory Stool - Feces [facility] LAB [address] [place] [address] * CULTURE-FECES W/SENSITIVITY (12/11/2017) Specimen Performing Laboratory Stool - Feces [facility] LAB [address] [place] [address] in this encounter Visit Diagnoses Diagnosis Diarrhea, unspecified type
--- OUTSIDE RECORDS SUMMARY | 2018-01-02 16:40 | XMS REPORT | Encounter Summary ---
Author Author [facility] Organization [facility] Address Unknown Phone Unavailable Care Team Providers Care Upper Leather Sorter Name Role Phone Michael Sutton MD Unavailable Unavailable Mary Whittington MD PCP UtJessica weaver Unavailable Maggie Puente Unavailable Unavailable Mary Telles APRN Unavailable Bam Ritter MD Unavailable Radha Bo LPN Unavailable Unavailable Jose Sanchez MD Unavailable Encounter Details Date Type Department Care Team Description 12/16/2017 Orders Only [facility] Jessica Valera ARNP Diarrhea, unspecified Physicians [address] type Ortho and Medical [place] [address] [place] [address] [phone] [place] [address] Social History Tobacco Use Types [...]
--- OUTSIDE RECORDS SUMMARY | 2018-01-02 16:44 | XMS REPORT | Encounter Summary ---
Author Author [facility] Address Unknown Phone Unavailable Care Team Providers Care Freelance Patternmaker Name Role Phone Michael Sutton MD Unavailable Unavailable Mary Whittington MD PCP Jessica Valera Unavailable Maggie Puente Unavailable Unavailable Mary Telles APRN Unavailable Bam Ritter MD Unavailable Radha Bo LPN Unavailable Unavailable Jose Sanchez MD Unavailable Reason for Visit * Reason Comments Other Encounter Details Date Type Department Care Team Description 12/13/2017 Telephone [facility] Randy Nunez MD Other Physicians - Internal [address] [facility] Medicine [place] [address] [place] [address] [address] [facility] [phone] [place] [address] [phone] Social History Tobacco Use Types Packs/Day Years [...]
--- OUTSIDE RECORDS SUMMARY | 2018-01-02 16:46 | XMS REPORT | Encounter Summary ---
Author Author [facility] Organization [facility] Address Unknown Phone Unavailable Care Team Providers Care Evaporator Repairer Name Role Phone Michael Sutton MD Unavailable Unavailable Mary Whittington MD PCP Jessica Valera Unavailable Maggie Puente Unavailable Unavailable Mary Telles APRN Unavailable Bam Ritter MD Unavailable Radha Bo LPN Unavailable Unavailable Jose Sanchez MD Unavailable Reason for Visit * Reason Comments C Diff Positive C Diff Encounter Details Date Type Department Care Team Description 12/13/2017 Telephone [facility] Jessica Valera ARNP C Diff (Positive C Diff) Physicians [address] Ortho and Medical [place] [address] [place] [address] [address] [facility] [phone] [place] [address] Social History Tobacco Use Types [...] and cleaning with a 1:10 bleach solution, [employer] message sent with additional information. Pt to call PRN and w/ progress report after finishing abx. * Telephone Encounter - Radha Bo LPN - 12/13/2017 11:39 AM CDT Attempted to contact pt. LVM to return call. * Telephone Encounter - Jessica Valera ARNP - 12/13/2017 11:35 AM CDT Due to her significant N/V called Luke/Pharmacist at [facility] to see if Vanco 125 mg [...]
--- OUTSIDE RECORDS SUMMARY | 2018-01-02 16:48 | XMS REPORT | Encounter Summary ---
Author Author [facility] Organization [facility] Address Unknown Phone Unavailable Care Team Providers Care It Architect Name Role Phone Michael Sutton MD Unavailable Unavailable Mary Whittington MD PCP Jessica Valera Unavailable Maggie Puente Unavailable Unavailable Mary Telles RN MDS Unavailable Bam Ritter MD Unavailable Radha Bo LPN Unavailable Unavailable Jose Sanchez MD Unavailable Reason for Visit * Reason Comments Prior Authorization Viokace Encounter Details Date Type Department Care Team Description 12/13/2017 Telephone [facility] Jessica Valera ARNP Prior Authorization Physicians [address] (Viokace ) Ortho and Medical [place] [address] [place] [address] [phone] [place] [address] Social History Tobacco Use Types [...] CDT Contacted patient's insurance at phone number [phone] to check the status of PA on medication Viokace, PA has been approved with authorized dates of 12/11- with no end date given yet. * Telephone Encounter - Senait Jarquin - 12/13/2017 10:42 AM CDT Completed PA for medication Viokace diagnosis chronic pancreatitis through [employer] guillermo code [id number], waiting for approval or denial in this encounter Plan of Treatment Date Type Specialty Care Team Description 12/09/2017 Procedure Pass Oncology 12/09/2017 Procedure Pass Oncology as of this encounter Visit Diagnoses Not on filein this encounter
--- OUTSIDE RECORDS SUMMARY | 2018-01-02 16:58 | XMS REPORT | Encounter Summary ---
Author Author [facility] Organization [facility] Address Unknown Phone Unavailable Care Team Providers Care Billing Assistant Name Role Phone Michael Sutton MD Unavailable Unavailable Mary Whittington MD PCP Jessica Valera Unavailable Maggie Puente Unavailable Unavailable Mary Telles APRN Unavailable Bam Ritter MD Unavailable Radha Bo LPN Unavailable Unavailable Jose Sanchez MD Unavailable Reason for Visit * Reason Comments Other plan of care Encounter Details Date Type Department Care Team Description 12/11/2017 Telephone [facility] Jessica Valera ARNP Other (plan of care) Physicians [address] Ortho and Medical [place] [address] [place] [address] [address] [phone] [place] [address] Social History Tobacco Use Types [...]
--- OUTSIDE RECORDS SUMMARY | 2018-01-02 17:02 | XMS REPORT | Encounter Summary ---
Author Author [facility] Organization [facility] Address Unknown Phone Unavailable Care Team Providers Care Director Of Financial Planning Name Role Phone Michael Sutton MD Unavailable Unavailable Mary Whittington MD PCP Jessica Valera Unavailable Maggie Puente Unavailable Unavailable Mary Telles APRN Unavailable Bam Ritter MD Unavailable Camron Bo LPN Unavailable Unavailable Jose Sanchez MD Unavailable Reason for Visit * Reason Comments Prior Authorization Hydrocortisone rectal suppository 25mg Encounter Details Date Type Department Care Team Description 12/10/2017 Telephone [facility] Jessica Valera ARNP Prior Authorization Physicians - Internal [address] (Hydrocortisone rectal Medicine [place] 1023 suppository 25mg ) [facility] [place] [address] [address] [facility] [phone] [place] [address] [phone] Social History Tobacco Use Types Packs/Day Years [...] Orders * Addendum Note - Silvia Hunt RN - 12/12/2017 11:28 AM CDT Addended by: SILVIA HUNT on: 12/12/2017 11:28 AM Modules accepted: Orders * Telephone Encounter - Silvia Hunt RN - 12/12/2017 11:13 AM CDT Formatting of [...] stated she is seeing her PCP in [place], [place] today and will call back office after to visit to report. Routing to KHOA Lopez Lora, ARNP sent to Camron Bo LPN 22 [...] via fax and it was denied. Per software support representative alternative medication that is covered is [...]
--- OUTSIDE RECORDS SUMMARY | 2018-01-02 17:04 | XMS REPORT | Encounter Summary ---
Author Author [facility] Organization [facility] Address Unknown Phone Unavailable Care Team Providers Care Fire Pot Operator Name Role Phone Michael Sutton MD Unavailable Unavailable Mary Whittington MD PCP Jessica Valera Unavailable Maggie Puente Unavailable Unavailable Mary Telles APRN Unavailable Bam Ritter MD Unavailable Radha Bo LPN Unavailable Unavailable Jose Sanchez MD Unavailable Encounter Details Date Type Department Care Team Description 12/10/2017 Ancillary Rad Outpatient, Radiologist Diagnosis unknown Orders [address] [place] [address] Social History Tobacco Use Types [...]
--- OUTSIDE RECORDS SUMMARY | 2018-01-02 17:05 | XMS REPORT | Encounter Summary ---
Author Author [facility] Organization [facility] Address Unknown Phone Unavailable Care Team Providers Care Singeing Torch Operator Name Role Phone Michael Sutton MD Unavailable Unavailable Mary Whittington MD PCP Jessica Valera Unavailable Maggie Puente Unavailable Unavailable Mary Telles APRN Unavailable Bam Ritter MD Unavailable Radha Bo LPN Unavailable Unavailable Jose Sanchez MD Unavailable Encounter Details Date Type Department Care Team Description 12/10/2017 Ancillary Rad Outpatient, Radiologist Orders [address] [place] [address] Social History Tobacco Use Types [...]
--- OUTSIDE RECORDS SUMMARY | 2018-01-02 17:07 | XMS REPORT | Encounter Summary ---
Author Author [facility] Organization [facility] Address Unknown Phone Unavailable Care Team Providers Care Design Engineering Specialist Name Role Phone Michael Sutton MD Unavailable Unavailable Mary Whittington MD PCP Jessica Valera Unavailable Maggie Puente Unavailable Unavailable Mary Telles APRN Unavailable Bam Ritter MD Unavailable Radha Bo LPN Unavailable Unavailable Jose Sanchez MD Unavailable Encounter Details Date Type Department Care Team Description 12/10/2017 Ancillary Rad Outpatient, Radiologist Diagnosis unknown Orders [address] [place] [address] Social History Tobacco Use Types [...]
--- OUTSIDE RECORDS SUMMARY | 2018-01-02 17:08 | XMS REPORT | Encounter Summary ---
Author Author [facility] Organization [facility] Address Unknown Phone Unavailable Care Team Providers Care Web Services Architect Name Role Phone Michael Sutton MD Unavailable Unavailable Mary Whittington MD PCP Jessica Valera Unavailable Maggie Puente Unavailable Unavailable Mary Telles PUNCH MACHINE HAND Unavailable Bam Ritter MD Unavailable Radha Bo BACK FILLER OPERATOR Unavailable Unavailable Jose Sanchez MD Unavailable Reason for Visit * Reason Comments Abdominal pain Constipation Diarrhea Nausea Vomiting Encounter Details Date Type Department Care Team Description 12/09/2017 Office Visit [facility] KHOA Lopez Diarrhea, unspecified Physicians - Internal [address] type (Primary Dx); Medicine [place] 1023 Epigastric pain; [place] [address] Chronic pancreatitis, [address] [phone] [place] [address] type (HCC); [phone] Nausea and vomiting, intractability of vomiting not [...] if you have any questions or concerns. [phone]. in this encounter Progress Notes * Jessica [...] has been to cancer Center treatment in [place] regarding a left lung nodule. She is scheduled to go back there again early in December. She also had a repeat CT chest/abdomen CT today which shows a stable left lobe pulmonary or pleural nodule which is apparently unchanged from previous imaging. Dr. Poe/ nephrology who ordered a CT recommended repeat imaging in 6 months. She plans to discuss this recommendation with her [place] provider as well. Since I saw her [...] repeat imaging 6 months. Patient seen at [facility] after 08/2017 OV, has follow up [...] with her colonoscopy in 2017 done in [place]. Will treat internal hemorrhoids with Anusol HC suppository nightly for at least 7 days and treat external hemorrhoids with Preparation H [id number] 2-3 times a day. She is to [...] review. 5. She will follow-up at the [facility] in [place] early December as planned regarding the left [...] Performing Laboratory Stool - Feces MAIN LAB [address] [place] [id number] * GIARDIA SCREEN,FECAL (12/11/2017) Specimen Performing Laboratory Feces [facility] [address] [place] [id number] * CRYPTOSPORIDUM,FECAL (12/11/2017) Specimen Performing Laboratory Stool - Feces [facility] [address] [place] [phone] * CULTURE-FECES W/SENSITIVITY (12/11/2017) Specimen Performing Laboratory Stool - Feces [facility] [address] [place] [address] * C DIFFICILE BY PCR (12/11/2017) Specimen Performing Laboratory Feces OTHER OUTSIDE LAB in this encounter Visit Diagnoses Diagnosis Diarrhea, unspecified type - Primary Epigastric pain Abdominal pain, epigastric Chronic pancreatitis, unspecified pancreatitis type (HCC) Nausea and vomiting, intractability of vomiting not specified, unspecified vomiting type
--- OUTSIDE RECORDS SUMMARY | 2018-01-02 17:12 | XMS REPORT | Encounter Summary ---
Author Author [facility] Organization [facility] Address Unknown Phone Unavailable Care Team Providers Care Wool Handler Name Role Phone Michael Sutton MD Unavailable Unavailable Mary Whittington MD PCP Jessica Valera Unavailable Maggie Puente Unavailable Unavailable Mary Telles ELEVATOR REPAIRER HELPER Unavailable Bam Ritter MD Unavailable Radha Bo ITINERANT TEACHER ASSISTANT Unavailable Unavailable Jose Sanchez MD Unavailable Reason for Referral * Radiology Services Status Reason Specialty Diagnoses / Referred By Referred To Procedures Contact Contact No Auth Needed Radiology Diagnoses Abel Poe MD [address] Left renal mass [address] [place] [address] [place] [address] [place] [address] [place], [place] Phone: CONTRAST [phone] Phone: * Radiology Services Status Reason Specialty Diagnoses / Referred By Referred To Procedures Contact Contact No Auth Needed Radiology Diagnoses Abel Poe MD [address] Left renal mass [address] [place] [address] ro[address] MS [facility] [place] [address] [address] [place], [place] Phone: CONTRAST [phone] Phone: * Radiology Services Status Reason Specialty Diagnoses / Referred By Referred To Procedures Contact Contact No Auth Needed Radiology Diagnoses Abel Poe MD [address] Left renal mass [address] [place] [address] Denise willams [place] [address] [place] [address] CONTRAST [address] Phone: * Radiology Services Status Reason Specialty Diagnoses / Referred By Referred To Procedures Contact Contact No Auth Needed Radiology Diagnoses Abel Poe MD [address] Left renal mass [address] [place] [address] [place] [place] [address] [place] [address] [place] [address] Phone: Reason for Visit * Radiology Services Status Reason Specialty Diagnoses / Referred By Referred To Procedures Contact Contact No Auth Needed Radiology Diagnoses Abel Poe MD [address] Left renal mass [address] [place] [address] [place] [address] [place] [address] [address] [place], [place] Phone: CONTRAST [phone] Phone: Encounter Details Date Type Department Care Team Description 12/09/2017 [facility] Abel Poe MD Encounter [facility] Radiology [address] [place] [address] [place] [address] [phone] Social History Tobacco Use Types Packs/Day Years [...] Specimen Performing Laboratory [facility] [address] [place] [address] [address]ST W CONTRAST (12/09/2017 9:55 [...] CDT 80 mL, Intravenous, ONCE, 1 dose, Sat12/09/17 at 1100, NOTE: This is a HIGH ALERT Medication. sodium chloride PF 0.9% injection 50 mL Given 12/09/2017 50 mL 50 mL, Intravenous, ONCE, 1 dose, Sat 11:00 CDT 12/09/17 at 1100, Intra-procedure (IR) in this encounter
--- OUTSIDE RECORDS SUMMARY | 2018-01-02 17:14 | XMS REPORT | Encounter Summary ---
Author Author [facility] Organization [facility] Address Unknown Phone Unavailable Care Team Providers Care Base Brander Name Role Phone Michael Sutton MD Unavailable Unavailable Mary Whittington MD PCP Jessica Valera Unavailable Maggie Puente Unavailable Unavailable Mary Telles AUTO WASHER Unavailable Bam Ritter MD Unavailable Radha Bo WHEELCHAIR RENTAL CLERK Unavailable Unavailable Jose Sanchez MD Unavailable Reason for Referral * Radiology Services Status Reason Specialty Diagnoses / Referred By Referred To Procedures Contact Contact New Request Radiology Diagnoses Abel Poe MD Left renal mass [address] [place]ced[place] [address]W [place], [place] [address] * Radiology Services Status Reason Specialty Diagnoses / Referred By Referred To Procedures Contact Contact New Request Radiology Diagnoses Abel Poe MD Left renal mass [address] [place] [address] CHEST [place] [address] Reason for Visit * Reason Comments Heme/Onc Care Encounter Details Date Type Department Care Team Description 12/09/2017 Office Visit [facility] Abel Poe MD Left renal mass ([facility] [address] Dx) [facility] [address] [place] [address] [address] [facility] [address] [phone] [place] [address] [phone] Social History Tobacco Use Types Packs/Day Years [...]
--- OUTSIDE RECORDS SUMMARY | 2018-01-02 17:15 | XMS REPORT | Encounter Summary ---
Author Author [facility] Organization [facility] Address Unknown Phone Unavailable Care Team Providers Care Cone Picker Name Role Phone Michael Sutton MD Unavailable Unavailable Mary Whittington MD PCP Jessica Valera Unavailable Maggie Puente Unavailable Unavailable Mary Telles APRN Unavailable Bam Ritter MD Unavailable Radha Bo ACTIVITY AID Unavailable Unavailable Jose Sanchez MD Unavailable Encounter Details Date Type Department Care Team Description 05/06/2017 Procedure Pass [facility] Radiology [address] [place] [address] Social History Tobacco Use Types [...]
--- OUTSIDE RECORDS SUMMARY | 2018-01-02 17:28 | XMS REPORT | Encounter Summary ---
Author Author [facility] Organization [facility] Address Unknown Phone Unavailable Care Team Providers Care Instant Potato Processing Supervisor Name Role Phone Michael Sutton MD Unavailable Unavailable Mary Whittington MD PCP Jessica Valera Unavailable Maggie Puente Unavailable Unavailable Mary Telles APRN Unavailable Bam Ritter MD Unavailable Radha Bo PAINT ROLLER ASSEMBLER Unavailable Unavailable Jose Sanchez MD Unavailable Encounter Details Date Type Department Care Team Description 05/06/2017 Procedure Pass [facility] Radiology [address] [place] [address] Social History Tobacco Use Types Packs/Day Years [...]
--- OUTSIDE RECORDS SUMMARY | 2018-01-02 17:41 | XMS REPORT | Encounter Summary ---
Author Author [facility] Organization [facility] Address Unknown Phone Unavailable Care Team Providers Care Dip Guider Stoves Name Role Phone Michael Sutton MD Unavailable Unavailable Mary Whittington MD PCP Jessica Valera Unavailable Maggie Puente Unavailable Unavailable Mary Telles APRN Unavailable Bam Ritter MD Unavailable Radha Bo LPN Unavailable Unavailable Jose Sanchez MD Unavailable Reason for Visit * Reason Comments Other Encounter Details Date Type Department Care Team Description 12/04/2017 Telephone [facility] Randy Nunez MD Other Physicians - Internal [address] [facility] Medicine [address] [place] [address] [address] [facility] [phone] [place] [address] [phone] Social History Tobacco Use Types Packs/Day Years [...]
--- OUTSIDE RECORDS SUMMARY | 2018-01-02 17:44 | XMS REPORT | Encounter Summary ---
Author Author [facility] Organization [facility] Address Unknown Phone Unavailable Care Team Providers Care Clammer Name Role Phone Michael Sutton MD Unavailable Unavailable Mary Whittington MD PCP Jessica Valera Unavailable Maggie Puente Unavailable Unavailable Mayr Telles APRN Unavailable Bam Ritter MD Unavailable Radha Bo LPN Unavailable Unavailable Jose Sanchez MD Unavailable Encounter Details Date Type Department Care Team Description 11/12/2017 Hospital [facility] Encounter Hospital Radiology [facility] [address] [place] [address] Social History Tobacco Use Types Packs/Day Years [...]
--- OUTSIDE RECORDS SUMMARY | 2018-01-02 17:50 | XMS REPORT | Encounter Summary ---
Author Author [facility] Organization [facility] Address Unknown Phone Unavailable Care Team Providers Care Billing Clerk Name Role Phone Michael Sutton MD Unavailable Unavailable Mary Whittington MD PCP Jessica Valera Unavailable Maggie Puente Unavailable Unavailable Mary Telles APRN Unavailable Bam Ritter MD Unavailable Radha Bo LPN Unavailable Unavailable Jose Sanchez MD Unavailable Encounter Details Date Type Department Care Team Description 11/11/2017 Hospital [facility] Encounter Hospital Radiology [facility] [address] [place] [address] Social History Tobacco Use Types Packs/Day Years [...]
--- OUTSIDE RECORDS SUMMARY | 2018-01-02 18:01 | XMS REPORT | Encounter Summary ---
Author Author [facility] Organization [facility] Address Unknown Phone Unavailable Care Team Providers Care Lining Cementer Name Role Phone Michael Sutton MD Unavailable Unavailable Mary Whittington MD PCP Jessica Valera Unavailable Maggie Puente Unavailable Unavailable Mary Telles MALE IMPERSONATOR Unavailable Bam Ritter MD Unavailable Radha Bo GRAPPLER Unavailable Unavailable Jose Sanchez MD Unavailable Reason for Visit * Radiology Services Status Reason Specialty Diagnoses / Referred By Referred To Procedures Contact Contact No Auth Needed Radiology Diagnoses Abel Poe MD [address] Left renal mass [address] [place] [address] [place] rocedures [place] [address] [place] [address] CONTRAST [address] Phone: Encounter Details Date Type Department Care Team Description 11/08/2017 Hospital [facility] Abel Poe MD Canceled (Other) Encounter [facility] [address] [place] [address] [place] [address] [phone] Social History Tobacco Use Types Packs/Day Years [...] this RN asking the patient to call [facility] nurse's desk to acknowledge the appointment date and time , NPO requirements, and other applicable instructions related to the imaging appointment. in this encounter Plan of Treatment Date Type Specialty Care Team Description 12/09/2017 Procedure Pass Oncology 12/09/2017 Procedure Pass Oncology as of this encounter Visit Diagnoses Not on filein this encounter
--- OUTSIDE RECORDS SUMMARY | 2018-01-02 18:09 | XMS REPORT | Encounter Summary ---
Author Author [facility] Organization [facility] Address Unknown Phone Unavailable Care Team Providers Care Mask Design Engineer Name Role Phone Michael Sutton MD Unavailable Unavailable Mary Whittington MD PCP Jessica Valera Unavailable Maggie Puente Unavailable Unavailable Mary Telles APRN Unavailable Bam Ritter MD Unavailable Radha Bo LPN Unavailable Unavailable Jose Sanchez MD Unavailable Reason for Visit * Reason Comments Results Encounter Details Date Type Department Care Team Description 10/31/2017 Telephone [facility] UROLOGY Abel Poe MD Results [address] [place] [address] Social History Tobacco Use Types [...]
--- OUTSIDE RECORDS SUMMARY | 2018-01-02 18:14 | XMS REPORT ---
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 Name Role Phone LAKSHMILURDESA Unavailable PROBLEMS Type Condition ICD9-CM Code MFH11-ME Code Onset Dates Condition Status SNOMED Code Problem Asthma J45.909 Active 964479329 Problem Atelectasis J98.11 Active 35459442 Problem Polydipsia R63.1 Active 61286684 Problem Chronic fatigue R53.82 Active 89626788 Problem Moderate episode of recurrent major depressive disorder F33.1 Active 382209728 Problem Generalized social phobia F40.11 Active 22734937 Problem Trichotillomania F63.3 Active 70635813 Problem Restless leg syndrome G25.81 Active 90697868 Problem Chronic post-traumatic stress disorder (PTSD) F43.12 Active 131147023 Problem History of renal cell carcinoma Z85.528 Active 662823726 Problem Nodule of left lung R91.1 Active 127155503 Problem Chronic tension-type headache, intractable G44.221 Active 189552176 Problem Hyperlipidemia, mixed E78.2 Active 908913896 Problem Hirsuties L68.0 Active 246820382 Problem Morbid (severe) obesity due to excess calories E66.01 Active 900436228 Problem FH: polycystic ovary Z84.2 Active 980887781 Problem Chronic pancreatitis K86.1 Active 139949298 ALLERGIES No Information ENCOUNTERS Encounter Location Date Diagnosis [facility] [address] [facility] [id number] [address] Nov, [facility] [address] [id number] [address] October, [facility] [address] [id number], [place] [address] 7[address] October, [facility] [id number] [place] [address] 19758- 7674 Sep, Chronic fatigue R53.82 and BMI 45.0-49.9, adult Z68.42 [place] [id number] [place] [address] 14978- 7395 Aug, [place] [id number] [place] [address] 37695- 2903 Jul, Restless leg syndrome G25.81 and B12 deficiency E53.8 [place] [id number] [place] [address] 31691- 1871 Jul, [place] [address] 33621- 7848 Jul, [place] [id number] [place] [address] 00738- 9546 Jun, [place] [id number] [place] [address] 84479- 4781 Jun, Fatigue, unspecified type R53.83 ; History of renal cell carcinoma Z85.528 ; Chronic pancreatitis K86.1 ; Restless leg syndrome G25.81 ; Dark urine R82.99 and BMI 45.0-49.9, adult Z68.42 [place] [id number] [place] [address] 73704- 1617 Jun, [place] [id number] [place] [address] 31855- 3160 Jun, [place] [id number] [place] [address] 30713- 9694 Jun, [place] [id number] [place] [address] 36093- 9317 Jun, [place] [id number] [place] [address] 05063- 7334 May, Chronic post-traumatic stress disorder (PTSD) F43.12 ; Moderate episode of recurrent major depressive disorder F33.1 ; Trichotillomania F63.3 and Generalized social phobia F40.11 [place] [address], [place] [address] 8515 May, [place] [address], [place] [address] 0688 14 May, 2017 Chronic post-traumatic stress disorder (PTSD) F43.12 ; Moderate episode of recurrent major depressive disorder F33.1 ; Trichotillomania F63.3 and Generalized social phobia F40.11 [place] [address], [place] [address] 5[address] 07 May, 2017 Hyperlipidemia, mixed E78.2 ; Morbid (severe) obesity due to excess calories E66.01 ; Chronic post-traumatic stress disorder (PTSD) F43.12 ; Moderate episode of recurrent major depressive disorder F33.1 ; Trichotillomania F63.3 and Generalized social phobia F40.11 [place] [address], [place] [address] 3891 30 Apr, 2017 [place] [id number] [place] [address] 01508- 9908 29 Apr, 2017 Hyperlipidemia, mixed E78.2 ; Morbid (severe) obesity due to excess calories E66.01 ; Chronic post-traumatic stress disorder (PTSD) F43.12 ; Moderate episode of recurrent major depressive disorder F33.1 ; Trichotillomania F63.3 and Generalized social phobia F40.11 [place] [address], [place] [address]- 0473 Apr, Trichotillomania F63.3 ; Generalized social phobia F40.11 ; Chronic post-traumatic stress disorder (PTSD) F43.12 and Moderate episode of recurrent major depressive disorder F33.1 [place] [address], [place] [address] 8509 15 Apr, 2017 [place] [address], [place] [address]- 2562 06 Apr, 2017 [place] [id number] [place] [address] 43315- 0960 Mar, Moderate episode of recurrent major depressive disorder F33.1 ; Trichotillomania F63.3 ; Chronic post-traumatic stress disorder (PTSD) F43.12 ; Generalized social phobia F40.11 and Restless leg syndrome G25.81 [facility] [id number] [place] [address] 89561- 0224 Mar, [facility] [id number] [place] [address] 60438- 1364 Mar, [facility] [id number] [place] [address] 11878- 2149 Feb, Left kidney mass N28.89 [facility] [id number] [place] [address] 14469- 3257 Jan, [facility] [id number] [place] [address] 71888- 2383 Dec, Polydipsia R63.1 ; Chronic pancreatitis K86.1 and Fatigue, unspecified type R53.83 [facility] [id number] [place] [address] 25468- 3541 Nov, [facility] [id number] [place] [address] 83367- 3571 Nov, [facility] [id number] [place] [address] 66986- 4756 Nov, Headache around the eyes R51 [facility] [id number] [place] [address] 36415- 9607 Nov, [facility] [id number] [place] [address] 26577- 1798 October, STD exposure Z20.2 [facility] [id number] [place] [address] 56433- 4389 October, STD exposure Z20.2 [facility] [id number] [place] [address] 34712- 2306 October, Chronic post-traumatic stress disorder (PTSD) F43.12 ; Generalized social phobia F40.11 ; Trichotillomania F63.3 and Restless leg syndrome G25.81 [place] [address] 97401- 2518 October, [place] [address] 38051- 8437 Sep, [place] [address] 76529- 5923 Aug, [place] [address] 83750- 9349 Aug, [place] [address] 97444- 5108 Aug, Neck mass R22.[address] 07709- 1220 Aug, Atelectasis J98.11 [place] [address] 85435- 9640 Jul, Hyperlipidemia, mixed E78.2 ; Atypical pneumonia J18.9 and Neck mass R22.1 [place] [id number] [place] [address] 96825- 8541 Jul, Hemoptysis R04.2 [place] [address] 75694- 9710 Jul, Acute non-recurrent pansinusitis J01.40 ; Hemoptysis R04.2 ; Polydipsia R63.1 and Malaise R53.81 [facility] [place] [address] [address] -0819 May, Other viral agents as the cause of diseases classified elsewhere B97.89 and Acute upper respiratory infection, unspecified J06.9 [facility] WALK IN [address] [address] -7929 Mar, Nausea R11.0 [facility] [place] [id number], [place] [address] Dec, Hives L50.9 [place] [address], [place] [address]- 4943 14 Dec, 2015 [facility] WALK IN [place] [id number] [place] [address] 09306 -5635 Dec, Cutaneous abscess of limb, unspecified L02.419 ; Cellulitis of unspecified part of limb L03.119 ; Encounter for incision and drainage procedure Z01.89 and Encounter for recheck of abscess following incision and drainage Z09 [facility] WALK IN [place] [id number] [place] [address] 12295 -7011 09 Dec, 2015 Abscess of leg, right L02.415 [place] [id number] [place] [address] 26845- 8354 Dec, Cellulitis of unspecified part of limb L03.119 and Cutaneous abscess of limb, unspecified L02.419 [place] [address], [place] [address]- 1943 Dec, [place] [id number] [place] [address] 58668- 0204 Dec, [facility] WALK IN [place] [address], [place] [address]2414 Aug, [place] [id number] [place] [address] 20736- 1642 Aug, [facility] WALK IN [place] [address], [place] [address] Jul, Pain in unspecified wrist M25.539 and Back pain, thoracic M54.6 [facility] WALK IN [place] [address], [place] [address]0802 Jun, Strain of right wrist, initial encounter S66.911A [place] [id number] [place] [address] 61162- 6308 Jun, Chronic pancreatitis, unspecified pancreatitis type K86.1 ; Hirsuties L68.0 ; Morbid (severe) obesity due to excess calories E66.01 ; Chronic pancreatitis K86.1 and Asthma J45.909 [facility] [id number] [place] [address] 12049- 0736 May, [facility] [address] 34615- 7864 May, Hyperlipidemia, mixed E78.2 and Muscle spasm of back M62.830 [place] [address] 53156- 4301 Apr, [place] [address] 79267- 6966 Apr, Torticollis M43.6 [place] [address] 03770- 8504 Apr, Right-sided thoracic back pain M54.6 [place] [address] 36732- 2913 Mar, Rash R21 [place] [address] 43754- 6648 Mar, [facility] [id number] [place] [address] 89067- 3748 Jan, [facility] [address] 99054- 3583 Dec, [facility] [id number] [place] [address] 88238- 5763 Dec, Urinary frequency 788.41 and Nocturia more than twice per night 788.43 [place] [id number] [place] [address] 36612- 5142 Nov, [facility] [address] 70754- 6280 Nov, [facility] [address], [place] [address]- 4220 Nov, Abdominal pain 789.00 [facility] [id number] [place] [address] 60734- 3839 October, TDAP DX V06.1 [facility] [id number] [place] [address] 688695- 3842 October, [facility] [id number] [place] [address] 42006- 4097 October, Disturbance of skin sensation 782.0 ; Wrist pain, right 719.43 ; Hyperlipidemia 272.4 and Skin lesion of face 709.9 [facility] [address], [place] [address]- 3483 Sep, [facility] [id number] [place] [address] 89586- 5550 Sep, [facility] [address], [place] [address]- 1711 Aug, [facility] [id number] [place] [address] 92777- 3742 Aug, [facility] [address], [place] [address]- 8170 Aug, [facility] [address], [place] [address]- 0834 Aug, [facility] [address], [place] [address]- 9869 Aug, [facility] [address], [place] [address]- 5257 Aug, [facility] [address] 1131 Aug, [facility] [address], [place] [address]- 4420 Aug, [facility] [place] [facility] [address] [id number] [place] [address]- 2086 Aug, [facility] [place] [facility] [address] [id number] [place] [address]- 4028 Aug, [facility] [place] [facility] [address] [id number] [place] [address]- 2011 Aug, [facility] [place] [facility] [address] [id number] [place] [address]- 1948 Aug, [facility] [place] [facility] [address] [id number] [place] [address]- 7332 Aug, [facility] [place] [facility] [address] [id number] [place] [address]- 5704 Aug, [facility] [place] [facility] [address] [id number] [place] [address]- 8646 Jul, [facility] [place] [facility] [address] [id number] [place] [address]- 0638 Jul, [facility] [place] [facility] [address] [id number] [place] [address]- 5019 Jul, [facility] [place] [facility] [address] [id number] [place] [address]- 4810 Jul, [facility] [place] [facility] [address] [id number] [place] [address]- 7609 Jul, [facility] [place] [facility] [address] [id number] [place] [address]- 2598 Jul, [facility] [place] [facility] [address] [id number] [place] [address]- 0320 Jun, [facility] [place] [facility] [address] [id number] [place] [address]- 6952 Jun, [facility] [place] [facility] [address] [id number] [place] [address]- 9640 Jun, [facility] [place] [facility] [address] [id number] [place] [address]- 1020 Jun, [facility] [place] [facility] [address] [id number] [place] [address]- 9264 Jun, [facility] [place] [facility] [address] [id number] [place] [address]- 7623 19 Jun, 2014 [facility] [place] [facility] [address] [id number] [place] [address]- 9066 15 Jun, 2014 [facility] [place] [facility] [address] [id number] [place] [address]- 7178 15 Jun, 2014 [facility] [place] [facility] [address] [id number] [place] [address]- 6781 May, [facility] [place] [facility] [address] [id number] [place] [address]- 9072 May, [facility] [place] [facility] [address] [id number] [place] [address]- 9003 May, [facility] [place] [facility] [address] [id number] [place] [address]- 3587 May, [facility] [place] [facility] [address] [id number] [place] [address]- 7343 May, [facility] [place] [facility] [address] [facility] [id number] [place] [address]- 6385 May, [facility] [place] [facility] [address] [id number] [place] [address]- 1826 May, [facility] [place] [facility] [address] [id number] [place] [address]- 1650 May, [facility] [place] [facility] [address] [id number] [place] [address]- 4692 May, [facility] [place] [facility] [address] [id number] [place] [address]- 7266 May, [facility] [place] [facility] [address] [id number] [place] 8958 May, [facility] [place] [facility] [address] [id number] [place] [address]- 0801 May, [facility] [place] [facility] [address] [id number] [place] [address]- 3478 Apr, [facility] [place] [facility] [address] [id number] [place] [address]- 2375 Apr, [facility] [place] [facility] [address] [id number] [place] [address]- 3823 Apr, [facility] [place] [facility] [address] [id number] [place] [address]- 5829 Apr, [facility] [place] [facility] [address] [id number] [place] [address]- 5179 Apr, [facility] [place] [facility] [address] [id number] [place] [address]- 7844 Apr, [facility] [place] [facility] [address] [id number] [place] [address]- 3654 Apr, [facility] [place] [facility] [address] [id number] [place] [address]- 1870 Apr, [facility] [place] [facility] [address] [id number] [place] [address]- 1469 Apr, [facility] [place] [facility] [address] [id number] [place] [address]- 7974 Apr, [facility] [place] [facility] [address] [id number] [place] [address]- 4417 Apr, [facility] [place] [facility] [address] [id number] [place] [address]- 7588 Apr, [facility] [place] [facility] [address] [id number] [place] [address]- 3062 Mar, [facility] [place] [facility] [address] [id number] [place] [address]- 3300 14 Mar, 2014 [facility] [place] [facility] [address] [id number] [place] [address]- 6704 Mar, [facility] [place] [facility] [address] [id number] [place] [address]- 2504 Mar, [facility] [place] [facility] [address] [id number] [place] [address]- 4021 Feb, [facility] [place] [facility] [address] [id number] [place] [address]- 9821 Feb, 2013 [facility] [place] [facility] [address] [id number] [place] [address]- 2959 Feb, 2013 [facility] [place] [facility] [address] [id number] [place] [address]- 3461 Feb, [facility] [place] [facility] [address] [id number] [place] [address]- 2421 Feb, [facility] [place] [facility] [address] [id number] [place] [address]- 2523 Feb, [facility] [place] [facility] [address] [id number] [place] [address]- 1450 Jan, [facility] [place] [facility] [address] [id number] [place] [address]- 4284 Jan, [facility] [place] [facility] [address] [id number] [place] [address]- 2684 Jan, [facility] [place] [facility] [address] [id number] [place] [address]- 4044 Jan, [facility] [place] [facility] [address] [id number], [place] [address]- 6112 Jan, [facility] [place] [facility] [address] [id number] [place] [address]- 6726 Jan, [facility] [place] [facility] [address] [id number] [place] [address]- 2035 Jan, [facility] [place] [facility] [address] [id number] [place] [address]- 0532 Jan, [facility] [place] [facility] [address] [id number] [place] [address]- 9337 Jan, [facility] [place] [facility] [address] [id number] [place] [address]- 6589 Jan, [facility] [place] [facility] [address] [id number] [place] [address]- 5909 Jan, [facility] [place] [facility] [address] [id number] [place] [address]- 1711 Jan, [facility] [place] [facility] [address] [id number] [place] [address]- 9738 Jan, [facility] [place] [facility] [address] [id number] [place] [address]- 0184 Jan, [facility] [place] [facility] [address] [id number] [place] [address]- 3613 Dec, [facility] [place] [facility] [address] [id number] [place] [address]- 1700 Dec, [facility] [place] [facility] [address] [id number] [place] [address]- 9208 Dec, [facility] [place] [facility] [address] [id number] [place] [address]- 9957 Dec, [facility] [place] [facility] [address] [id number] [place] [address]- 7066 Nov, [facility] [place] [facility] [address] [id number] [place] [address]- 7883 Nov, [facility] [place] [facility] [address] [id number] [place] [address]- 3426 Nov, [facility] [place] [facility] [address] [id number] [place] [address]- 4608 Nov, [facility] [place] [facility] [address] [id number] [place] [address]- 8826 Nov, [facility] [place] [facility] [address] [id number] [place] [address]- 4616 October, [facility] [place] [facility] [address] [id number] [place] [address]- 2763 October, [facility] [place] [facility] [address] [id number] [place] [address]- 3842 October, [facility] [place] [facility] [address] [id number] [place] [address]4 October, [facility] [place] [facility] [address] [id number] [place] [address]- 5907 October, [facility] [address] [id number] [place] [address]- 7716 October, [facility] [place] [facility] [address] [id number] [place] [address]- 5552 October, [facility] [place] [facility] [address] [id number] [place] [address]- 5139 October, [facility] [place] [facility] [address] [id number] [place] [address]- 2373 October, [facility] [place] [facility] [address] [id number] [place] [address]- 2225 October, [facility] [place] [facility] [address] [id number] [place] [address]- 1303 October, [facility] [place] [facility] [address] [id number] [place] [address] October, [facility] [place] [facility] [address] [id number] [place] [address] October, [facility] [place] [facility] [address] [id number] [id number] [address] October, [facility] [place] [facility] [address] [id number] [place] [address] Sep, [facility] [place] [facility] [address] [id number] [place] [address] Sep, [facility] [place] [facility] [address] [id number] [place] [address] Sep, [facility] [place] [facility] [address] [id number] [place] [address] 14 Sep, 2013 [facility] [place] [facility] [address] [id number] [place] [address] Sep, [facility] [place] [facility] [address] [id number] [place] [address] Sep, [facility] [place] [facility] [address] [id number] [place] [address] Sep, [facility] [place] [facility] [address] [id number] [place] [address] Sep, [facility] [place] [facility] [address] [id number] [place] [address] Sep, [facility] [place] [facility] [address] [id number] [place] [address] Sep, [facility] [place] [facility] [address] [id number] [place] [address] Sep, [facility] [place] [facility] [address] [id number] [place] [address] Sep, [facility] [place] [facility] [address] [id number] [place] [address] Sep, [facility] [place] [facility] [address] [id number] [place] [address] Sep, [facility] [place] [facility] [address] [id number] [place] [address] Sep, [facility] [place] [facility] [address] [id number] [place] [address] Aug, [facility] [place] [facility] [address] [id number] [place] [address] Aug, [facility] [place] [facility] [address] [id number] [place] [address] Aug, [facility] [place] [facility] [address] [id number] [place] [address] Aug, [facility] [place] [facility] [address] [id number] [place] [address] Jul, [facility] [place] [facility] [address] [id number] [place] [address] Jul, [facility] [place] [facility] [address] [id number] [place] [address] Jul, [facility] [place] [facility] [address] [id number] [place] [address] Jul, [facility] [place] [facility] [address] [id number] [place] [address] Jun, [facility] [place] [facility] [address] [id number] [place] [address] Jun, [facility] [place] [facility] [address] [id number] [place] [address] Jun, [facility] [place] [facility] [address] [id number] [place] [address] Jun, [facility] [place] [facility] [address] [id number] [place] [address] Jun, [facility] [place] [facility] [address] [id number] [place] [address] Jun, [facility] [place] [facility] [address] [id number] [place] [address] Jun, [facility] [place] [facility] [address] [id number] [place] [address] Jun, [facility] [place] [facility] [address] [id number] [place] [address] May, [facility] [place] [facility] [address] [id number] [place] [address] May, [facility] [place] [facility] [address] [id number] [place] [address] 18 May, 2013 [facility] [address] [id number] [place] [address] 18 May, 2013 [facility] [address] [id number] [place] [address] 17 May, 2013 [facility] [address] [id number] [place] [id number] May, 2013 [facility] [address] [id number] [place] [address] 17 May, 2013 [facility] [address] [id number] [place] [address] 17 May, 2013 [facility] [address] [id number] [place] [address] 16 May, 2013 [facility] [address] [id number] [place] [address] 16 May, 2013 [facility] [address] [id number] [place] [address] 14 May, 2013 [facility] [address] [id number] [place] [address] 14 May, 2013 [facility] [address] [id number] [place] [address] 8073 13 May, 2013 [facility] [address] [id number], [place] [address] 13 May, 2013 [facility] [address] [id number], [place] [address] 12 May, 2013 [facility] [address] [id number] [place] [address] 7425 12 May, 2013 [facility] [address] [id number] [place] [address] 11 May, 2013 [facility] [place] [facility] [address] [id number] [place] [address] 11 May, 2013 [facility] [address] [id number] [place] [address] Apr, [facility] [address] [id number] [place] [address] 9905 Apr, [facility] [place] [facility] [address] [id number] [place] [address] 3103 Apr, [facility] [address] [id number] [place] [address] 4065 Apr, [facility] [place] [facility] [address] [id number] [place] [address] 8539 Aug, [facility] [address] [id number] [place] [address] 6473 Aug, [facility] [address] [id number] [place] [address] 1535 Aug, [facility] [address] [id number] [place] [address] 0730 Aug, [facility] [address] [id number] [place] [address] Jul, [facility] [address] [id number] [place] [address]- 9792 Jun, [facility] [address] [id number] [place] [address] 6[address] Jun, [facility] [address] [id number] [place] [address] 5240 Jun, [facility] [address] [id number] [place] [address]- 9341 Jun, [facility] [place] [facility] [address] [id number] [place] [address] 5510 May, [facility] [place] [facility] [address] [id number] [place] [address]- 3202 May, [facility] [address] [id number] [place] [address]- 4225 May, [facility] [place] [facility] [address] [id number] [place] [address]- 5462 May, [facility] [place] [facility] [address] [id number] [place] [address] May, [facility] [place] [facility] [address] [id number] [place] [address]- 8380 May, [facility] [place] [facility] [address] [id number] [place] [address]- 0976 May, [facility] [place] [facility] [address] [id number] [place] [address]- 2982 Apr, [facility] [place] [facility] [address] [id number] [place] [address]- 6270 Apr, [facility] [place] [facility] [address] [id number] [place] [address]- 2382 Apr, [facility] [place] [facility] [address] [id number] [place] [address]- 1241 Apr, [facility] [place] [facility] [address] [id number] [place] [address]- 3961 Apr, [facility] [place] [facility] [address] [id number] [place] [address]- 1152 Apr, [facility] [place] [facility] [address] [id number] [place] [address]- 1214 Apr, [facility] [place] [facility] [address] [id number], [place] [address] 9[address] Mar, [facility] [place] [facility] [address] [id number] [place] [address]- 9987 Mar, [facility] [place] [facility] [address] [id number] [place] [address]- 1754 Mar, [facility] [place] [facility] [address] [id number], [place] [address] 7[address] Mar, [facility] [place] [facility] [address] [id number], [place] [address] 6[address] Mar, [facility] [place] [facility] [address] [id number] [place] [address]- 7091 Mar, [facility] [place] [facility] [address] [id number] [place] [address]- 3579 Mar, [facility] [place] [facility] [address] [id number] [place] [address]- 4326 Mar, [facility] [place] [facility] [address] [id number] [place] [address]- 3003 Mar, [facility] [place] [facility] [address] [id number] [place] [address]- 0217 Mar, [facility] [place] [facility] [address] [id number] [place] [address]- 6034 Mar, [facility] [place] [facility] [address] [id number] [place] [address]- 8469 Mar, [facility] [place] [facility] [address] [id number] [place] [address]- 5541 Feb, [facility] [place] [facility] [address] [id number] [place] [address]- 5626 Jan, [facility] [place] [facility] [address] [id number] [place] [address]- 0676 Jan, [facility] [place] [facility] [address] [id number] [place] [address]- 3494 Jan, [facility] [place] [facility] [address] [id number] [place] [address]- 4257 Jan, [facility] [place] [facility] [address] [id number] [place] [address]- 6337 Jan, [facility] [place] [facility] [address] [id number] [place] [address]- 8312 Dec, [facility] [place] [facility] [address] [id number] [place] [address]- 6281 Dec, [facility] [place] [facility] [address] [id number] [place] [address] 9114 Nov, [facility] [address] [id number] [place] [address] 2740 Nov, [facility] [address] [id number] [place] [address]- 8774 Nov, [facility] [address] [id number] [place] [address]- 2862 October, [facility] [address] [id number] [place] [address] 4016 October, [facility] [address] [id number] [place] [address]- 6255 October, [facility] [address] [id number] [place] [address]- 0314 October, [facility] [address] [id number] [place] [address]- 5596 October, [facility] [address] [id number] [place] [address]- 9878 October, [facility] [address] [id number] [place] [address]- 6084 October, [facility] [address] [id number] [place] [address]- 8845 Sep, [facility] [address] [id number] [place] [address]- 7506 Sep, [facility] [address] [id number] [place] [address]- 3382 Sep, [facility] [place] [facility] [address] [id number] [place] [address]- 9884 Sep, [facility] [address] [id number] [place] [address]- 2855 Sep, [facility] [address] [id number] [place] [address]- 5824 Sep, [facility] [place] [facility] [address] [id number] [place] [address]- 8129 17 Sep, 2011 [facility] [place] [facility] [address] [id number] [place] [address]- 8596 16 Sep, 2011 [facility] [place] [facility] [address] [id number] [place] [address]- 9143 16 Sep, 2011 [facility] [place] [facility] [address] [id number] [place] [address]- 5258 14 Sep, 2011 [facility] [place] [facility] [address] [id number] [place] [address]- 5432 13 Sep, 2011 [facility] [place] [facility] [address] [id number] [place] [address]- 9144 10 Sep, 2011 [facility] [place] [facility] [address] [id number] [place] [address]- 3800 09 Sep, 2011 [facility] [place] [facility] [address] [id number] [place] [address]- 4841 27 Aug, 2011 [facility] [place] [facility] [address] [id number] [place] [address]- 2577 12 Aug, 2011 [facility] [place] [facility] [address] [id number] [place] [address]- 0954 08 Aug, 2011 [facility] [place] [facility] [address] [id number] [place] [address]- 8912 06 Aug, 2011 [facility] [place] [facility] [address] [id number] [place] [address]- 8702 28 Jul, 2011 [facility] [place] [facility] [address] [id number] [place] [address]- 0257 22 Jul, 2011 [facility] [place] [facility] [address] [id number] [place] [address]- 9614 16 Jul, 2011 [facility] [place] [facility] [address] [id number] [place] [address]- 9474 15 Jul, 2011 [facility] [place] [facility] [address] [id number] [place] [address]- 5766 14 Jul, 2011 [facility] [address] [id number] [place] [address]- 0495 10 Jul, 2011 [facility] [address] [id number] [place] [address]- 3486 30 Jun, 2011 [facility] [address] [id number] [place] [address]- 7557 Jun, [facility] [address] [id number] [place] [address]- 7048 Jun, [facility] [address] [id number] [place] [address]- 1846 Jun, [facility] [address] [id number] [place] [address]- 1503 Jun, [facility] [address] [id number] [place] [address]- 0484 May, [facility] [address] [id number] [place] [address]- 2107 May, [facility] [address] [id number] [place] [address]- 0493 May, [facility] [address] [facility] [id number] [place] [address]- 4577 14 May, 2011 [facility] [address] [id number] [place] [address]- 0053 May, [facility] [address] [id number] [place] [address]- 8440 May, [facility] [address] [id number] [place] [address]- 4912 05 May, 2011 [facility] [address] [id number] [place] [address]- 4224 15 Apr, 2011 [facility] [address] [id number] [place] [address]- 7032 15 Apr, 2011 [facility] [place] [facility] [address] [id number] [place] [address]- 9504 Apr, [facility] [place] [facility] [address] [id number] [place] [address]- 7420 Apr, [facility] [place] [facility] [address] [id number] [place] [address]- 6261 Apr, [facility] [place] [facility] [address] [id number] [place] [address]- 6116 Apr, [facility] [place] [facility] [address] [id number] [place] [address]- 0884 Mar, [facility] [place] [facility] [address] [id number] [place] [address]- 6496 Mar, [facility] [place] [facility] [address] [id number] [place] [address]- 7066 Mar, [facility] [place] [facility] [address] [id number] [place] [address]- 8322 Mar, [facility] [place] [facility] [address] [id number] [place] [address]- 9385 Jan, [facility] [place] [facility] [address] [id number] [place] [address]- 7672 Dec, [facility] [place] [facility] [address] [id number] [place] [address]- 7984 Dec, [facility] [place] [facility] [address] [id number], [place] [address]- 6502 October, [facility] [place] [facility] [address] [id number] [place] [address]- 1578 Sep, [facility] [place] [facility] [address] [id number] [place] [address]- 8024 14 Sep, 2010 [facility] [place] [facility] [address] [id number], [place] [address]- 9456 Jul, [facility] [place] [facility] [address] [id number], [place] [address]- 3152 16 Jul, 2010 [facility] [address] [id number] [place] [address]- 1313 31 May, 2010 [facility] [place] [facility] [address] [id number] [place] [address]- 1696 27 May, 2010 [facility] [place] [facility] [address] [facility] [id number] [place] [address]- 4596 08 May, 2010 [facility] [place] [facility] [address] [id number] [place] [address]- 5602 06 May, 2010 [facility] [place] [facility] [address] [id number] [place] [address]- 2866 Apr, [facility] [place] [facility] [address] [id number] [place] [address]- 0260 Apr, [facility] [address] [facility] [id number], [place] [address]- 0840 Apr, [facility] [place] [facility] [address] [id number], [place] [address]- 8970 Apr, [facility] [place] [facility] [address] [facility] [id number] [place] [address]- 8322 Apr, [facility] [place] [facility] [address] [facility] [id number] [place] [address]- 1883 Mar, [facility] [place] [facility] [address] [id number], [place] [address]- 2549 14 Mar, 2010 [facility] [place] [facility] [address] [id number], [place] [address]- 4366 13 Mar, 2010 [facility] [place] [facility] [address] [facility] [id number], [place] [address]- 8601 12 Mar, 2010 [facility] [place] [facility] [address] [facility] [id number], [place] [address]- 0137 Jan, [facility] [place] [facility] [address] [facility] [id number], [place] [address]- 6232 15 Dec, 2009 [facility] [place] [facility] [id number], [place] [address]- 3262 Sep, [facility] [id number] 2013 May, [facility] [id number]107 May, [facility] [id number] [place] [address]- 8656 May, [facility] [id number] [address]15 Apr, [facility] [id number] [place] [address]- 3352 Apr, [facility] [id number] [place] [address]- 5128 Apr, [facility] [id number] [place] [address] 48[address]- 3519 Apr, [facility] [id number], [place] [address]- 0180 Apr, [facility] [id number], [place] [address]- 9297 Mar, [facility] [id number], [place] [address]- 9342 Mar, [facility] [id number], [place] [address]- 4903 Jul, IMMUNIZATIONS No Known Immunizations SOCIAL HISTORY Never Assessed REASON FOR VISIT PLAN OF CARE VITAL SIGNS MEDICATIONS Medication Instructions Dosage Frequency Start Date End Date Duration Status Ropinirole HCl 4 mg Orally at bedtime 1 tablet 07 days Active RESULTS No Results PROCEDURES No [...] repair- Dr. Daniel 08/2017 Hospitalization History Cellulitis-[facility] 12/20/15 Hospitalization [facility] [place]- Abd pain 03/07/2017 Hospitalization [facility] [place]- Abd pain 03/14/2017 Hospitalization [facility] [place]- No bowel movement, rash 04/13/2017 Hospitalization [facility] [place]- Abd pain r/t kidney surgery on 04/17/2017 Hospitalization History [facility] [place]- Abd pain r/t kidney surgery on 04/18/2017 Hospitalization History [facility] [place]- Lower abd pain 04/30/2017 Hospitalization [facility] [place]- Cannot urinate 05/30/2017 Hospitalization [facility] [place]- Pancreatitis Sx 06/29/2017 Hospitalization [facility] [place]- Stomach pain 07/22/2017 Hospitalization [facility] [place]- Left side pain 08/12/2017 Hospitalization [facility] [place]- Incision site infection 08/30/2017 Hospitalization History [facility]- Post Op Seroma/Hematoma Left Abdomen. Discharged 09/04/17- Dr Daniel 09/02/2017
--- OUTSIDE RECORDS SUMMARY | 2018-01-02 18:14 | XMS REPORT | Encounter Summary ---
Author Author [facility] Organization [facility] Address Unknown Phone Unavailable Care Team Providers Care Cardiothoracic Surgeon Name Role Phone Michael [place] MD Unavailable Unavailable aMry Whittington MD PCP Jessica Valera Unavailable Maggie Puente Unavailable Unavailable Mary Telles APRN Unavailable Bam Ritter MD Unavailable Radha Bo LPN Unavailable Unavailable Jose Sanchez MD Unavailable Encounter Details Date Type Department Care Team Description 10/22/2017 Hospital [facility] Encounter Hospital Radiology [facility] [address] [place] [id number] Social History Tobacco Use Types Packs/Day Years [...]
--- OUTSIDE RECORDS SUMMARY | 2018-01-02 18:15 | XMS REPORT ---
Author Author AMY MARTINS [facility] Address [address] [place] [address] Care Team Providers Care Mathematical Scientist Name Role Phone LAKSHMILURDESA Unavailable PROBLEMS Type Condition ICD9-CM Code YWS38-TC Code Onset Dates Condition Status SNOMED Code Problem Asthma J45.909 Active 693401337 Problem Atelectasis J98.11 Active 72455926 Problem Polydipsia R63.1 Active 71065278 Problem Chronic fatigue R53.82 Active 88541760 Problem Moderate episode of recurrent major depressive disorder F33.1 Active 149602088 Problem Generalized social phobia F40.11 Active 66623470 Problem Trichotillomania F63.3 Active 13981468 Problem Restless leg syndrome G25.81 Active 17341798 Problem Chronic post-traumatic stress disorder (PTSD) F43.12 Active 381228922 Problem History of renal cell carcinoma Z85.528 Active 120063277 Problem Nodule of left lung R91.1 Active 767688034 Problem Chronic tension-type headache, intractable G44.221 Active 464059727 Problem Hyperlipidemia, mixed E78.2 Active 083935567 Problem Hirsuties L68.0 Active 159654343 Problem Morbid (severe) obesity due to excess calories E66.01 Active 352983142 Problem FH: polycystic ovary Z84.2 Active 143867903 Problem Chronic pancreatitis K86.1 Active 974036122 ALLERGIES No Information ENCOUNTERS Encounter Location Date Diagnosis [facility] [address] [facility] [id number] [address] Nov, [facility] [address] [id number] [address] October, [facility] [address] [id number], [place] [address] October, [facility] [id number] [place] [address] 31006- 0448 Sep, Chronic fatigue R53.82 and BMI 45.0-49.9, adult Z68.42 [place] [address] [id number] [place] [address] 82442- 2280 Aug, [place] [address] [id number] [place] [address] 92026- 7158 Jul, Restless leg syndrome G25.81 and B12 deficiency E53.8 [place] [address] [place] [id number] [place] [address] 86146- 3671 Jul, [place] [address] [address]655- 5211 Jul, [place] [address] [id number] [place] [address] 55467- 2870 Jun, [place] [address] [address] [id number] [place] [address] 20836- 0723 Jun, Fatigue, unspecified type R53.83 ; History of renal cell carcinoma Z85.528 ; Chronic pancreatitis K86.1 ; Restless leg syndrome G25.81 ; Dark urine R82.99 and BMI 45.0-49.9, adult Z68.42 [place] [address] [place] [address] 91431- 5107 Jun, [place] [address] [address] [id number] [place] [address] 96111- 2892 Jun, [place] [id number] [place] [address] 83038- 8744 Jun, [place] [id number] [place] [address] 67574- 3175 Jun, [place] [id number] [place] [address] 13956- 8284 May, Chronic post-traumatic stress disorder (PTSD) F43.12 ; Moderate episode of recurrent major depressive disorder F33.1 ; Trichotillomania F63.3 and Generalized social phobia F40.11 [place] [address], [place] [address] May, [place] [address], [place] [address] 9[address] 14 May, 2017 Chronic post-traumatic stress disorder (PTSD) F43.12 ; Moderate episode of recurrent major depressive disorder F33.1 ; Trichotillomania F63.3 and Generalized social phobia F40.11 [place] [address], [place] [address] 07 May, 2017 Hyperlipidemia, mixed E78.2 ; Morbid (severe) obesity due to excess calories E66.01 ; Chronic post-traumatic stress disorder (PTSD) F43.12 ; Moderate episode of recurrent major depressive disorder F33.1 ; Trichotillomania F63.3 and Generalized social phobia F40.11 [place] [address], [place] [address] 3522 30 Apr, 2017 [place] [address] [place] [address] 66543- 3516 29 Apr, 2017 Hyperlipidemia, mixed E78.2 ; Morbid (severe) obesity due to excess calories E66.01 ; Chronic post-traumatic stress disorder (PTSD) F43.12 ; Moderate episode of recurrent major depressive disorder F33.1 ; Trichotillomania F63.3 and Generalized social phobia F40.11 [place] [address], [place] [address] 7927 Apr, Trichotillomania F63.3 ; Generalized social phobia F40.11 ; Chronic post-traumatic stress disorder (PTSD) F43.12 and Moderate episode of recurrent major depressive disorder F33.1 [place] [address], [place] [address] 6965 15 Apr, 2017 [place] [address], [place] [address] 06 Apr, 2017 [place] [id number] [place] [address] 76416- 4232 Mar, Moderate episode of recurrent major depressive disorder F33.1 ; Trichotillomania F63.3 ; Chronic post-traumatic stress disorder (PTSD) F43.12 ; Generalized social phobia F40.11 and Restless leg syndrome G25.81 [facility] [id number] [place] [address] 60106- 0123 Mar, [facility] [id number] [place] [address] 89193- 6597 Mar, [facility] [id number] [place] [address] 62839- 8720 Feb, Left kidney mass N28.89 [facility] [id number] [place] [address] 18338- 0693 Jan, [facility] [id number] [place] [address] 06469- 9024 Dec, Polydipsia R63.1 ; Chronic pancreatitis K86.1 and Fatigue, unspecified type R53.83 [facility] [id number] [place] [address] 07257- 0586 Nov, [facility] [id number] [place] [address] 01136- 8453 Nov, [facility] [id number] [place] [address] 01622- 8978 Nov, Headache around the eyes R51 [facility] [id number] [place] [address] 05917- 4854 Nov, [facility] [id number] [place] [address] 78636- 7530 October, STD exposure Z20.2 [facility] [id number] [place] [address] 49206- 9433 October, STD exposure Z20.2 [facility] [id number] [place] [address] 07848- 3664 October, Chronic post-traumatic stress disorder (PTSD) F43.12 ; Generalized social phobia F40.11 ; Trichotillomania F63.3 and Restless leg syndrome G25.81 [place] [address] 90179- 6295 October, [place] [address] 36771- 9597 Sep, [place] [address] 66532- 2352 Aug, [place] [address] 25775- 2127 Aug, [place] [address] 34841- 9391 Aug, Neck mass R22.[address] 01896- 0995 Aug, Atelectasis J98.11 [place] [address] 11967- 8754 Jul, Hyperlipidemia, mixed E78.2 ; Atypical pneumonia J18.9 and Neck mass R22.1 [place] [id number] [place] [address] 71983- 5787 Jul, Hemoptysis R04.2 [place] [address] 29315- 7638 Jul, Acute non-recurrent pansinusitis J01.40 ; Hemoptysis R04.2 ; Polydipsia R63.1 and Malaise R53.81 [facility] [place] [address] [address] -[address]93 May, Other viral agents as the cause of diseases classified elsewhere B97.89 and Acute upper respiratory infection, unspecified J06.9 [facility] WALK IN [address] 76991 -7075 Mar, Nausea R11.0 [facility] WALK IN [place] [address], [place] [address] Dec, Hives L50.9 [place] [address], [place] [address]- 8574 14 Dec, 2015 [facility] WALK IN [place] [address] [place] [address] 12807 -1360 Dec, Cutaneous abscess of limb, unspecified L02.419 ; Cellulitis of unspecified part of limb L03.119 ; Encounter for incision and drainage procedure Z01.89 and Encounter for recheck of abscess following incision and drainage Z09 [facility] WALK IN [place] [address] [place] [address] 39002 -7489 09 Dec, 2015 Abscess of leg, right L02.415 [place] [id number] [place] [address] 38921- 9727 Dec, Cellulitis of unspecified part of limb L03.119 and Cutaneous abscess of limb, unspecified L02.419 [place] [address], [place] [address]- 5825 Dec, [place] [address] [place] [address] 02065- 6862 Dec, [facility] [place] [address], [place] [address]83 Aug, [place] [address] [place] [address] 00340- 5750 Aug, [facility] IN [place] [address], [place] [address] Jul, Pain in unspecified wrist M25.539 and Back pain, thoracic M54.6 [facility] WALK IN [place] [address], [place] [address]1417 Jun, Strain of right wrist, initial encounter S66.911A [place] [id number] [place] [address] 69847- 3556 Jun, Chronic pancreatitis, unspecified pancreatitis type K86.1 ; Hirsuties L68.0 ; Morbid (severe) obesity due to excess calories E66.01 ; Chronic pancreatitis K86.1 and Asthma J45.909 [facility] [id number] [place] [address] 25959- 5111 May, [facility] [address] 10533- 0657 May, Hyperlipidemia, mixed E78.2 and Muscle spasm of back M62.830 [place] [address] 90729- 3056 Apr, [place] [address] 62154- 8190 Apr, Torticollis M43.6 [place] [address] 95417- 4514 Apr, Right-sided thoracic back pain M54.6 [place] [address] 08700- 4195 Mar, Rash R21 [place] [address] 16882- 4148 Mar, [facility] [id number] [place] [address] 41135- 0091 Jan, [facility] [address] 46292- 1201 Dec, [facility] [id number] [place] [address] 29633- 9764 Dec, Urinary frequency 788.41 and Nocturia more than twice per night 788.43 [place] [address] [place] [id number] [place] [address] 19932- 7856 Nov, [facility] [address] 31538- 9540 Nov, [facility] [address], [place] [address]- 0556 Nov, Abdominal pain 789.00 [facility] [address] [place] [address] 28642- 8984 October, TDAP DX V06.1 [facility] [id number] [place] [address] 572170- 6133 October, [facility] [id number] [place] [address] 63058- 0872 October, Disturbance of skin sensation 782.0 ; Wrist pain, right 719.43 ; Hyperlipidemia 272.4 and Skin lesion of face 709.9 [facility] [address], [place] [address]- 6367 Sep, [facility] [id number] [place] [address] 46178- 4864 Sep, [facility] [address], [place] [address]- 8928 Aug, [facility] [id number] [place] [address] 89782- 5749 Aug, [facility] [address], [place] [address]- 5619 Aug, [facility] [address], [place] [address]- 3735 Aug, [facility] [address], [place] [address]- 9682 Aug, [facility] [address], [place] [address]- 0468 Aug, [facility] [address] 5602 Aug, [facility] [address], [place] [address]- 4269 Aug, [facility] [place] [facility] [address] [id number] [place] [address]- 5267 Aug, [facility] [place] [facility] [address] [id number] [place] [address]- 9444 Aug, [facility] [place] [facility] [address] [id number] [place] [address]- 0437 Aug, [facility] [place] [facility] [address] [id number] [place] [address]- 8922 Aug, [facility] [place] [facility] [address] [id number] [place] [address]- 5408 Aug, [facility] [place] [facility] [address] [id number] [place] [address]- 5151 Aug, [facility] [place] [facility] [address] [id number] [place] [address]- 3523 Jul, [facility] [place] [facility] [address] [id number] [place] [address]- 8008 Jul, [facility] [place] [facility] [address] [id number] [place] [address]- 7579 Jul, [facility] [place] [facility] [address] [id number] [place] [address]- 0221 Jul, [facility] [place] [facility] [address] [id number] [place] [address]- 0296 Jul, [facility] [place] [facility] [address] [id number] [place] [address]- 7867 Jul, [facility] [place] [facility] [address] [id number] [place] [address]- 5322 Jun, [facility] [place] [facility] [address] [id number] [place] [address]- 3261 Jun, [facility] [place] [facility] [address] [id number] [place] [address]- 3891 Jun, [facility] [place] [facility] [address] [id number] [place] [address]- 7760 Jun, [facility] [place] [facility] [address] [id number] [place] [address]- 2445 Jun, [facility] [place] [facility] [address] [id number] [place] [address]- 0813 19 Jun, 2014 [facility] [place] [facility] [address] [id number] [place] [address]- 0072 15 Jun, 2014 [facility] [place] [facility] [address] [id number] [place] [address]- 6376 15 Jun, 2014 [facility] [place] [facility] [address] [id number] [place] [address]- 4238 May, [facility] [place] [facility] [address] [id number] [place] [address]- 5203 May, [facility] [place] [facility] [address] [id number] [place] [address]- 1590 May, [facility] [place] [facility] [address] [id number] [place] [address]- 2091 May, [facility] [place] [facility] [address] [id number] [place] [address]- 4855 May, [facility] [place] [facility] [address] [facility] [id number] [place] [address]- 3157 May, [facility] [place] [facility] [address] [id number] [place] [address]- 8939 May, [facility] [place] [facility] [address] [id number] [place] [address]- 5168 May, [facility] [place] [facility] [address] [id number] [place] [address]- 9486 May, [facility] [place] [facility] [address] [id number] [place] [address]- 5778 May, [facility] [place] [facility] [address] [id number] [place] 8890 May, [facility] [place] [facility] [address] [id number] [place] [address]- 0725 May, [facility] [place] [facility] [address] [id number] [place] [address]- 8520 Apr, [facility] [place] [facility] [address] [id number] [place] [address]- 5047 Apr, [facility] [place] [facility] [address] [id number] [place] [address]- 8429 Apr, [facility] [place] [facility] [address] [id number] [place] [address]- 1693 Apr, [facility] [place] [facility] [address] [id number] [place] [address]- 1380 Apr, [facility] [place] [facility] [address] [id number] [place] [address]- 0039 Apr, [facility] [place] [facility] [address] [id number] [place] [address]- 0808 Apr, [facility] [place] [facility] [address] [id number] [place] [address]- 5874 Apr, [facility] [place] [facility] [address] [id number] [place] [address]- 8499 Apr, [facility] [place] [facility] [address] [id number] [place] [address]- 1290 Apr, [facility] [place] [facility] [address] [id number] [place] [address]- 4125 Apr, [facility] [place] [facility] [address] [id number] [place] [address]- 8214 Apr, [facility] [place] [facility] [address] [id number] [place] [address]- 8420 Mar, [facility] [place] [facility] [address] [id number] [place] [address]- 6086 14 Mar, 2014 [facility] [place] [facility] [address] [id number] [place] [address]- 9056 Mar, [facility] [place] [facility] [address] [id number] [place] [address]- 6437 Mar, [facility] [place] [facility] [address] [id number] [place] [address]- 3539 Feb, [facility] [place] [facility] [address] [id number] [place] [address]- 8524 Feb, 2013 [facility] [place] [facility] [address] [id number] [place] [address]- 9314 Feb, 2013 [facility] [place] [facility] [address] [id number] [place] [address]- 6185 Feb, [facility] [place] [facility] [address] [id number] [place] [address]- 7663 Feb, [facility] [place] [facility] [address] [id number] [place] [address]- 7179 Feb, [facility] [place] [facility] [address] [id number] [place] [address]- 7857 Jan, [facility] [place] [facility] [address] [id number] [place] [address]- 1383 Jan, [facility] [place] [facility] [address] [id number] [place] [address]- 2902 Jan, [facility] [place] [facility] [address] [id number] [place] [address]- 0498 Jan, [facility] [place] [facility] [address] [id number] [address]- 8597 Jan, [facility] [place] [facility] [address] [id number] [place] [address]- 9704 Jan, [facility] [place] [facility] [address] [id number] [place] [address]- 7000 Jan, [facility] [place] [facility] [address] [id number] [place] [address]- 5533 Jan, [facility] [place] [facility] [address] [id number] [place] [address]- 5872 Jan, [facility] [place] [facility] [address] [id number] [place] [address]- 4680 Jan, [facility] [place] [facility] [address] [id number] [place] [address]- 9241 Jan, [facility] [place] [facility] [address] [id number] [place] [address]- 7666 Jan, [facility] [place] [facility] [address] [id number] [place] [address]- 3516 Jan, [facility] [place] [facility] [address] [id number] [place] [address]- 7567 Jan, [facility] [place] [facility] [address] [id number] [place] [address]- 2490 Dec, [facility] [place] [facility] [address] [id number] [place] [address]- 4817 Dec, [facility] [place] [facility] [address] [id number] [place] [address]- 5666 Dec, [facility] [place] [facility] [address] [id number] [place] [address]- 4711 Dec, [facility] [place] [facility] [address] [id number] [place] [address]- 4946 Nov, [facility] [place] [facility] [address] [id number] [place] [address]- 8316 Nov, [facility] [place] [facility] [address] [id number] [place] [address]- 3235 Nov, [facility] [place] [facility] [address] [id number] [place] [address]- 4821 Nov, [facility] [place] [facility] [address] [id number] [place] [address]- 6430 Nov, [facility] [place] [facility] [address] [id number] [place] [address]- 5121 October, [facility] [place] [facility] [address] [id number] [place] [address]- 8154 October, [facility] [place] [facility] [address] [id number] [place] [address]- 0604 October, [facility] [place] [facility] [address] [id number] [place] 5714 October, [facility] [place] [facility] [address] [id number] [place] [address]- 2570 October, [facility] [address] [id number] [place] [address]- 4390 October, [facility] [place] [facility] [address] [id number] [place] [address]- 7840 October, [facility] [place] [facility] [address] [id number] [place] [address]- 0903 October, [facility] [place] [facility] [address] [id number] [place] [address]- 4537 October, [facility] [place] [facility] [address] [id number] [place] [address]- 0124 October, [facility] [place] [facility] [address] [id number] [place] [address]- 1001 October, [facility] [place] [facility] [address] [id number] [place] [address]- 2609 October, [facility] [place] [facility] [address] [id number] [place] [address]- 3725 October, [facility] [place] [facility] [address] [id number] [place] [address] October, [facility] [place] [facility] [address] [id number] [place] [address] Sep, [facility] [place] [facility] [address] [id number] [place] [address] Sep, [facility] [place] [facility] [address] [id number] [place] [address] Sep, [facility] [place] [facility] [address] [id number] [place] [address] 14 Sep, 2013 [facility] [place] [facility] [address] [id number] [place] [address] Sep, [facility] [place] [facility] [address] [id number] [place] [address] Sep, [facility] [place] [facility] [address] [id number] [place] [address] Sep, [facility] [place] [facility] [address] [id number] [place] [address] Sep, [facility] [place] [facility] [address] [id number] [place] [address] Sep, [facility] [place] [facility] [address] [id number] [place] [address] Sep, [facility] [place] [facility] [address] [id number] [place] [address] Sep, [facility] [place] [facility] [address] [id number] [place] [address] Sep, [facility] [place] [facility] [address] [id number] [place] [address] Sep, [facility] [place] [facility] [address] [id number] [place] [address] Sep, [facility] [place] [facility] [address] [id number] [place] [address] Sep, [facility] [place] [facility] [address] [id number] [place] [address] Aug, [facility] [place] [facility] [address] [id number] [place] [address] Aug, [facility] [place] [facility] [address] [id number] [place] [address] Aug, [facility] [place] [facility] [address] [id number] [place] [address] Aug, [facility] [place] [facility] [address] [id number] [place] [address] Jul, [facility] [place] [facility] [address] [id number] [place] [address] Jul, [facility] [place] [facility] [address] [id number] [place] [address] Jul, [facility] [place] [facility] [address] [id number] [place] [address] Jul, [facility] [place] [facility] [address] [id number] [place] [address] Jun, [facility] [place] [facility] [address] [id number] [place] [address] Jun, [facility] [place] [facility] [address] [id number] [place] [address] Jun, [facility] [place] [facility] [address] [id number] [place] [address] Jun, [facility] [place] [facility] [address] [id number] [place] [address] Jun, [facility] [place] [facility] [address] [id number] [place] [address] Jun, [facility] [place] [facility] [address] [id number] [place] [address] Jun, [facility] [place] [facility] [address] [id number] [place] [address] Jun, [facility] [place] [facility] [address] [id number] [place] [address] May, [facility] [place] [facility] [address] [id number] [place] [address] May, [facility] [place] [facility] [address] [id number] [place] [address] 18 May, 2013 [facility] [address] [id number] [place] [address] 18 May, 2013 [facility] [address] [id number] [place] [address] 17 May, 2013 [facility] [address] [id number] [place] [id number] 17 May, 2013 [facility] [address] [id number] [place] [address] 17 May, 2013 [facility] [address] [id number] [place] [address] 17 May, 2013 [facility] [address] [id number] [place] [address] 16 May, 2013 [facility] [address] [id number] [place] [address] 16 May, 2013 [facility] [address] [id number] [place] [address] 14 May, 2013 [facility] [address] [id number] [place] [address] 6679 14 May, 2013 [facility] [address] [id number] [place] [address] 7092 13 May, 2013 [facility] [address] [id number], [place] [address] 13 May, 2013 [facility] [address] [id number] [address] 12 May, 2013 [facility] [address] [id number] [place] [address] 9522 12 May, 2013 [facility] [address] [id number] [place] [address] 11 May, 2013 [facility] [place] [facility] [address] [id number] [place] [address] 11 May, 2013 [facility] [address] [id number] [place] [address] 8568 Apr, [facility] [address] [id number] [place] [address] 58[address] Apr, [facility] [place] [facility] [address] [id number] [place] [address] 3854 Apr, [facility] [address] [id number] [place] [address] 9972 Apr, [facility] [place] [facility] [address] [id number] [place] [address] Aug, [facility] [address] [id number] [place] [address] 8469 Aug, [facility] [address] [id number] [place] [address] 4393 Aug, [facility] [address] [id number] [place] [address]- 2342 Aug, [facility] [address] [id number] [place] [address] 3501 Jul, [facility] [address] [id number] [place] [address] 8[address] Jun, [facility] [address] [id number] [place] [address] Jun, [facility] [address] [id number] [place] [address] 4689 Jun, [facility] [address] [id number] [place] [address] 3899 Jun, [facility] [place] [facility] [address] [id number] [place] [address] 9735 May, [facility] [place] [facility] [address] [id number] [place] [address] 8294 May, [facility] [address] [id number] [place] [address]- 8362 May, [facility] [place] [facility] [address] [id number] [place] [address]- 2392 May, [facility] [place] [facility] [address] [id number] [place] [address] May, [facility] [place] [facility] [address] [id number] [place] [address]- 7290 May, [facility] [place] [facility] [address] [id number] [place] [address]- 2158 May, [facility] [place] [facility] [address] [id number] [place] [address] 9793 Apr, [facility] [place] [facility] [address] [id number] [place] [address]- 6872 Apr, [facility] [place] [facility] [address] [id number] [place] [address] 7021 Apr, [facility] [place] [facility] [address] [id number] [place] [address]- 2969 Apr, [facility] [place] [facility] [address] [id number] [place] [address]- 8321 Apr, [facility] [place] [facility] [address] [id number] [place] [address]- 4592 Apr, [facility] [place] [facility] [address] [id number] [place] [address]- 3198 Apr, [facility] [place] [facility] [address] [id number], [place] [address] Mar, [facility] [place] [facility] [address] [id number] [place] [address]- 4495 Mar, [facility] [place] [facility] [address] [id number] [place] [address]- 9566 Mar, [facility] [place] [facility] [address] [id number], [place] [address] 6[address] Mar, [facility] [place] [facility] [address] [id number], [place] [address] 4[address] Mar, [facility] [place] [facility] [address] [id number] [place] [address]- 8600 Mar, [facility] [place] [facility] [address] [id number] [place] [address]- 9833 Mar, [facility] [place] [facility] [address] [id number] [place] [address]- 2366 Mar, [facility] [place] [facility] [address] [id number] [place] [address]- 1197 Mar, [facility] [place] [facility] [address] [id number] [place] [address]- 3509 Mar, [facility] [place] [facility] [address] [id number] [place] [address]- 3759 Mar, [facility] [place] [facility] [address] [id number] [place] [address]- 7526 Mar, [facility] [place] [facility] [address] [id number] [place] [address] 5504 Feb, [facility] [place] [facility] [address] [id number] [place] [address]- 5633 Jan, [facility] [place] [facility] [address] [id number] [place] [address]- 7033 Jan, [facility] [place] [facility] [address] [id number] [place] [address]- 0399 Jan, [facility] [place] [facility] [address] [id number] [place] [address]- 5990 Jan, [facility] [place] [facility] [address] [id number] [place] [address] 2878 Jan, [facility] [place] [facility] [address] [id number] [place] [address] 6354 Dec, [facility] [place] [facility] [address] [id number] [place] [address]- 6705 Dec, [facility] [place] [facility] [address] [id number] [place] [address] 2013 Nov, [facility] [address] [id number] [place] [address] 3843 Nov, [facility] [address] [id number] [place] [address] 8295 Nov, [facility] [address] [id number] [place] [address] 0101 October, [facility] [address] [id number] [place] [address] 8731 October, [facility] [address] [id number] [place] [address] 1704 October, [facility] [address] [id number] [place] [address]- 7495 October, [facility] [address] [id number] [place] [address]- 3915 October, [facility] [address] [id number] [place] [address]- 3303 October, [facility] [address] [id number] [place] [address]- 5086 October, [facility] [address] [id number] [place] [address]- 9135 Sep, [facility] [address] [id number] [place] [address]- 6095 Sep, [facility] [address] [id number] [place] [address]- 8485 Sep, [facility] [place] [facility] [address] [id number] [place] [address]- 8134 Sep, [facility] [address] [id number] [place] [address]- 9451 Sep, [facility] [address] [id number] [place] [address]- 2532 Sep, [facility] [place] [facility] [address] [id number] [place] [address]- 2285 17 Sep, 2011 [facility] [place] [facility] [address] [id number] [place] [address]- 8358 16 Sep, 2011 [facility] [place] [facility] [address] [id number] [place] [address]- 5717 16 Sep, 2011 [facility] [place] [facility] [address] [id number] [place] [address]- 6344 14 Sep, 2011 [facility] [place] [facility] [address] [id number] [place] [address]- 2335 13 Sep, 2011 [facility] [place] [facility] [address] [id number] [place] [address]- 9254 10 Sep, 2011 [facility] [place] [facility] [address] [id number] [place] [address]- 6497 09 Sep, 2011 [facility] [place] [facility] [address] [id number] [place] [address]- 1591 27 Aug, 2011 [facility] [place] [facility] [address] [id number] [place] [address]- 9882 12 Aug, 2011 [facility] [place] [facility] [address] [id number] [place] [address]- 8692 08 Aug, 2011 [facility] [place] [facility] [address] [id number] [place] [address]- 0855 06 Aug, 2011 [facility] [place] [facility] [address] [id number] [place] [address]- 3070 28 Jul, 2011 [facility] [place] [facility] [address] [id number] [place] [address]- 2103 22 Jul, 2011 [facility] [place] [facility] [address] [id number] [place] [address]- 6368 16 Jul, 2011 [facility] [place] [facility] [address] [id number] [place] [address]- 3951 15 Jul, 2011 [facility] [place] [facility] [address] [id number] [place] [address]- 3454 14 Jul, 2011 [facility] [address] [id number] [place] [address]- 1569 10 Jul, 2011 [facility] [address] [id number] [place] [address]- 2187 30 Jun, 2011 [facility] [address] [id number] [place] [address]- 2575 Jun, [facility] [address] [id number] [place] [address]- 4438 Jun, [facility] [address] [id number] [place] [address]- 5844 Jun, [facility] [address] [id number] [place] [address]- 6003 Jun, [facility] [address] [id number] [place] [address]- 0947 May, [facility] [address] [id number] [place] [address]- 5626 May, [facility] [address] [id number] [place] [address]- 7586 May, [facility] [address] [facility] [id number] [place] [address]- 7174 14 May, 2011 [facility] [address] [id number] [place] [address]- 6926 May, [facility] [address] [id number] [place] [address]- 7410 May, [facility] [address] [id number] [place] [address]- 3851 05 May, 2011 [facility] [address] [id number] [place] [address]- 9567 15 Apr, 2011 [facility] [address] [id number] [place] [address]- 9502 15 Apr, 2011 [facility] [place] [facility] [address] [id number] [place] [address]- 2256 Apr, [facility] [place] [facility] [address] [id number] [place] [address]- 5121 Apr, [facility] [place] [facility] [address] [id number] [place] [address]- 5630 Apr, [facility] [place] [facility] [address] [id number] [place] [address]- 9036 Apr, [facility] [place] [facility] [address] [id number] [place] [address]- 3699 Mar, [facility] [place] [facility] [address] [id number] [place] [address]- 2266 Mar, [facility] [place] [facility] [address] [id number] [place] [address]- 8814 Mar, [facility] [place] [facility] [address] [id number] [place] [address]- 0079 Mar, [facility] [place] [facility] [address] [id number] [place] [address]- 6243 Jan, [facility] [place] [facility] [address] [id number] [place] [address]- 4651 Dec, [facility] [place] [facility] [address] [id number] [place] [address]- 5116 Dec, [facility] [place] [facility] [address] [id number], [place] [address]- 6791 October, [facility] [place] [facility] [address] [id number] [place] [address]- 3070 Sep, [facility] [place] [facility] [address] [id number] [place] [address]- 7137 14 Sep, 2010 [facility] [place] [facility] [address] [id number], [place] [address]- 1056 Jul, [facility] [place] [facility] [address] [id number], [place] [address] 7018 16 Jul, 2010 [facility] [address] [id number] [place] [address]- 5591 31 May, 2010 [facility] [place] [facility] [address] [id number] [place] [address]- 4526 27 May, 2010 [facility] [place] [facility] [address] [facility] [id number] [place] [address]- 0266 08 May, 2010 [facility] [place] [facility] [address] [id number] [place] [address]- 4202 06 May, 2010 [facility] [place] [facility] [address] [id number] [place] [address]- 8687 Apr, [facility] [place] [facility] [address] [id number] [place] [address]- 9844 Apr, [facility] [address] [facility] [id number], [place] [address]- 5665 Apr, [facility] [place] [facility] [address] [id number], [place] [address]- 0558 Apr, [facility] [place] [facility] [address] [facility] [id number] [place] [address]- 6620 Apr, [facility] [place] [facility] [address] [facility] [id number] [place] [address]- 0498 Mar, [facility] [place] [facility] [address] [id number], [place] [address]- 2669 14 Mar, 2010 [facility] [place] [facility] [address] [id number], [place] [address]- 4466 13 Mar, 2010 [facility] [place] [facility] [address] [facility] [id number], [place] [address]- 6346 12 Mar, 2010 [facility] [place] [facility] [address] [facility] [id number], [place] [address]- 8539 Jan, [facility] [place] [facility] [address] [facility] [id number], [place] [address]- 9065 15 Dec, 2009 [facility] [place] [facility] [id number], [place] [address]- 9692 Sep, [facility] [id number] May, [facility] [id number] [address] May, [facility] [id number] 1134 May, [facility] [id number] [address]121 Apr, [facility] [id number] [place] [address]- 0426 Apr, [facility] [id number] [place] [address]- 7139 Apr, [facility] [address] [id number], [place] [address]- 2728 Apr, [facility] [id number], [place] [address]- 9091 Apr, [facility] [id number], [place] [address]- 8212 Mar, [facility] [id number], [place] [address]- 0603 Mar, [facility] [id number] [address] Jul, IMMUNIZATIONS No Known Immunizations SOCIAL HISTORY Never Assessed REASON FOR VISIT triage - CBowmanRN PLAN OF CARE VITAL SIGNS MEDICATIONS Unknown [...] hernia repair- Dr. Daniel 08/2017 Hospitalization History [facility] 12/20/15 Hospitalization [facility]- Abd pain 03/07/2017 Hospitalization History [facility]- Abd pain 03/14/2017 Hospitalization History [facility]- No bowel movement, rash 04/13/2017 Hospitalization History [facility]- Abd pain r/t kidney surgery on 04/17/2017 Hospitalization History [facility]- Abd pain r/t kidney surgery on 04/18/2017 Hospitalization History [facility]- Lower abd pain 04/30/2017 Hospitalization History [facility]- Cannot urinate 05/30/2017 Hospitalization History [facility]- Pancreatitis Sx 06/29/2017 Hospitalization History [facility]- Stomach pain 07/22/2017 Hospitalization History [facility]- Left side pain 08/12/2017 Hospitalization History [facility]- Incision site infection 08/30/2017 Hospitalization History [facility]- Post Op Seroma/Hematoma Left Abdomen. Discharged 09/04/17- Dr Daniel 09/02/2017
--- NOTE | 2018-01-07 21:34 | Physician Query Clarification ---
PQ-Further Specificity Admission/Discharge Admission Date: Dec 29, 2017 at 16:30 Discharge Date: Dec 30, 2017 at 16:10 The medical record reflects the following clinical scenario: History: On a repeat ER visit 12/18, she had blood cultures drawn and one of the two sites grew enterococcus and coag neg staph and she had a CT of her abdomen which showed decrease in the fluid collection in her left abdomen which has been being followed by Dr. Daniel after hernia repair for hernia following left nephrectomy for renal cell carcinoma. Dr. Daniel had arranged outpatient antibiotics and daily IVF, but in spite of this, she felt she could nto keep enough liquid down to avoid returning to the ER. History/Risk Factors: intractable nausea and vomiting Clinical Findings: positive blood cultures for Enterococcus Treatment: IV antibiotics Question: Can you further specify intractable nausea and vomiting per the clinical indicators above? Please document below. 1. Intractable nausea and vomiting due to positive Enterococcus in blood 2. Intractable nausea and vomiting, unspecified 3. Postoperative infection 4. Other, with explanation of the clinical findings. 5. Clinically undetermined, no explanation for the clinical findings. PHYSICIAN RESPONSE Can you specify per above: 2 In responding to this query, please exercise your independent professional judgment. The purpose of this communication is to more accurately reflect the complexity of your patients condition. The fact that a question is asked does not imply that any particular answer is desired or expected. Thank you for your timely response to this clarification. Requestors name: [ ] Phone # [ ] THIS PHYSICIAN QUERY FORM IS A PERMANENT PART OF THE MEDICAL RECORD SARA WILKINS Jan 07, 2018 21:34 EWELINA SHIELDS MD Jan 14, 2018 12:53
== END 2017-12-30 16:10 | disposition home or self-care (01) | DRG 392 ==
LOC: EDUNIT# 09:56 → ER 09:58 → UNDOADMOB 12:03 → 4TH 12:03 → UNDOADMOB 12-29 16:30 → 4TH 12-29 16:30 → INTOOBSV 12-29 16:30 → OBSVTOIN 12-29 16:30 → UNDODISIN 12-30 16:10
PROVIDERS: ADMIT Family Medicine; ATTEND Family Medicine
DX: R11.2 Nausea with vomiting, unspecified (principal); K86.1 Other chronic pancreatitis; I82.612 Acute embolism and thrombosis of superficial veins of left upper extremity; T82.868A Thrombosis due to vascular prosthetic devices, implants and grafts, initial encounter; B95.2 Enterococcus as the cause of diseases classified elsewhere; B95.8 Unspecified staphylococcus as the cause of diseases classified elsewhere; R91.8 Other nonspecific abnormal finding of lung field; J45.909 Unspecified asthma, uncomplicated; F43.10 Post-traumatic stress disorder, unspecified; G25.81 Restless legs syndrome; F63.3 Trichotillomania; F45.9 Somatoform disorder, unspecified; G43.909 Migraine, unspecified, not intractable, without status migrainosus; K59.09 Other constipation; Z87.891 Personal history of nicotine dependence; Z85.528 Personal history of other malignant neoplasm of kidney; Z90.5 Acquired absence of kidney; Z76.5 Malingerer [conscious simulation]
CPT/HCPCS: 36415; 71045; 76937; 80053; 81000; 83605; 83690; 85025; 85652; 87040; 99284; G0378

== ENCOUNTER → 2018-01-15 | Outpatient (CLI) | payer MEDICARE, MEDICAID ==
[~2018-01-15] MED LIST changes: +HYDR30CR95 TOP; +[UNRECOGNIZED DRUG - CODE] PO
--- NOTE | 2018-01-15 10:33 | Diagnostic Imaging Report ---
PROCEDURE: US Abdomen, limited. TECHNIQUE: Multiple realtime grayscale images were obtained over the abdomen in various projections. INDICATION: Abdominal pain with postop seroma. He had left nephrectomy and hernia repair. Sonographic interrogation along the patient's abdominal scar was performed. There is a slightly complex fluid collection measuring 10.8 x 2.4 x 2.7 cm. No internal vascularity is seen. No hernia is detected. IMPRESSION: Superficial complex fluid collection below the patient's left abdominal scar, suggestive of a resolving hematoma or seroma. No other significant abnormality is seen. Dictated by: Dictated on workstation # [id number]
== END ==
LOC: RAD 07:01
PROVIDERS: ATTEND Family Medicine
DX: K91.873 Postprocedural seroma of a digestive system organ or structure following other procedure (principal); Z90.5 Acquired absence of kidney; Z98.890 Other specified postprocedural states
CPT/HCPCS: 76705

== ENCOUNTER 2018-02-13 10:48 | Day surgery (SDC) | payer MEDICARE, MEDICAID ==
[~2018-02-13] VITALS: Ht 157.5 cm; Wt 113.5 kg
[~2018-02-13 10:48] MED LIST changes: -CHOL200014 PO; +CHOL200085 PO; +OXYC1TAB87 PO; -ROPI4TAB3 PO; +ROPI4TAB5 PO
--- OUTSIDE RECORDS SUMMARY | 2018-02-13 10:54 | XMS REPORT | Encounter Summary ---
Author Author [facility] Organization [facility] Address Unknown Phone Unavailable Care Team Providers Care Crime Laboratory Analyst Name Role Phone Michael Sutton MD Unavailable Unavailable Mary Whittington MD PCP Jessica Valera Unavailable Maggie Puente Unavailable Unavailable Mary Telles APRN Unavailable Bam Ritter MD Unavailable Radha Bo LPN Unavailable Unavailable Jose Sanchez MD Unavailable Reason for Visit * Auth/Cert Status Reason Specialty Diagnoses / Referred By Referred To Procedures Contact Contact Diagnoses Other chronic pancreatitis (HCC) Intractable vomiting with nausea, unspecified vomiting type Other chronic pancreatitis (HCC) [K86.1] Intractable vomiting with nausea, unspecified vomiting type [R11.2] P rocedures [place] ESOPHAGOGASTRODU ODENOSCOPY US SCOPE W/ADJ STRXRS ENDOSCOPIC ULTRASOUND REPORT ESOPHAGOGASTRODU ODENOSCOPY ENDOSCOPIC ULTRASOUND Encounter Details Date Type Department Care Team Description 01/31/2018 [facility] [place] Hal Sparks MD Other chronic Encounter Endoscopy [address] pancreatitis (HCC) [address] [place] [address] [place] [address] [phone] Social History Tobacco Use Types Packs/Day Years Used Date Never Smoker Smokeless Tobacco: Never Used Alcohol Use Drinks/Week oz/Week Comments No Sex Assigned at Date Recorded Not on file as of this encounter Last Filed Vital Signs Vital Sign Reading Time Taken Blood Pressure 114/61 01/31/2018 2:26 PM CDT Pulse 70 01/31/2018 2:26 PM CDT Temperature 36.4 C (97.5 F) 01/31/2018 2:08 PM CDT Respiratory Rate - - Oxygen Saturation 97% 01/31/2018 2:26 PM CDT Inhaled Oxygen - - Concentration Weight 120.2 kg (265 lb) 01/31/2018 12:44 PM CDT Height 157.5 cm (5' 2") 01/31/2018 12:44 PM CDT Body Mass Index 48.47 01/31/2018 12:44 PM CDT in this encounter Functional Status [...] impairment: Yes 06/03/2017 as of this encounter Discharge Instructions * Discharge Instr - Education - Ghanshyam Wells RN - 01/31/2018 2:17 PM CDT EGD/Upper EUS/ERCP/Antegrade Enteroscopy Post Upper Endoscopy Instructions -You may have a sore throat after the procedure for 2-3 days. Try sucrets or lozenges to help ease the pain. If it continues please contact us. -If you feel feverish, have a temperature of 101 degrees or higher, persistent nausea and vomiting, abdominal pain or dark stools; please notify your nurse or GI physician. -You may have abdominal cramping following the procedure this can be relieved by belching or passing air. -If you have redness or swelling at the IV site, place a warm, wet washcloth over the affected areas for 15 minutes, 3-4 times a day until the redness subsides. If symptoms continue for 2-3 days, contact your regular physician. - If you have bleeding from your mouth, over 2 tablespoons and increasing, please notify your physician. A small amount of bleeding is normal if a biopsy or polyps were taken. If you are vomiting blood you need to seek immediate medical attention. - You may resume all your routine medications, if medications need to be held your physician and/or nurse will notify you post procedure. SPECIFIC INSTRUCTIONS OUTPATIENTS: A. Because of sedation and lack of coordination, UNTIL TOMORROW, DO NOT: 1. Operate any motorized vehicle - this includes driving. 2. Sign any legal documents or conduct important business matters. 3. Use any dangerous machinery (chain saw, lawnmower, etc.). 4. Drink any alcoholic beverages. Should you have any questions or concerns after your procedure please call M-F 8am-5:00 pm. After 5:00 pm, holidays or weekends call [phone] and ask for the GI Doctor leadership development consultant. in this encounter Medications at Time of [...] needed tabletIndications: Pain for Pain Indications: PAIN hydrocortisone 2.5% Apply externally and 30 g 0 12/13/2017 (PROCTO-MED HC) 2.5 % internally to area(s) rectal cream twice to three times a day as needed. arxqvm-rteqajoh-vvjrjlo Take 3 tablets by mouth 300 tablet 5 2017 (VIOKACE) 20,880-78,300- three times daily with 78,300 unit tab meals. Take 2 with snacks. ondansetron (ZOFRAN ODT) Dissolve 1 tablet by 60 tablet 2 09/02/2017 8 mg rapid dissolve mouth twice daily. Place tabletIndications: on tongue to disolve. Chronic nausea, Chronic vomiting rOPINIRole (REQUIP) 4 mg Take 4 mg by mouth at tablet bedtime daily. as of this encounter H&P Notes * Hal Sparks MD - 01/31/2018 12:46 PM CDT Formatting of this note may be different from the original. Pre Procedure History and Physical/Sedation Plan Name:Janeth Rajput :1985 Age: 32 y.o. Date of Service: 01/31/2018 Date of Procedure: 01/31/2018 Planned Procedure(s): GI: EGD and EUS Sedation/Medication Plan: MAC (Monitored Anesthesia Care) Discussion/Reviews: Physician has discussed risks and alternatives of this type of sedation and above planned procedures with patient or significant other Chief Complaint: chronic pancreatitis, abdominal pain, nausea, vomiting, history of recurrent pancreatitis History of Present Illness: Janeth Rajput is a 32 y.o. female Previous Anesthetic/Sedation History: reviewed Past Medical History: Diagnosis Date Abdominal pain, [...] Vitamin D deficiency Weight gain Unintentional significant Past Surgical History: Procedure Laterality Date CHOLECYSTECTOMY 06/2005 UPPER GASTROINTESTINAL ENDOSCOPY 04/2009 LIPOMA RESECTION 06/2009 Abdominal wall lipoma removal COLONOSCOPY 01/2010 TRIGGER POINT INJECTION (1-2 MUSCLE GROUPS) 03/2010 Epigastric region with bupivacaine HX HYSTERECTOMY -2012 total NEPHRECTOMY Left 04/10/2017 NEPHRECTOMY LAPAROSCOPY performed by Abel Poe MD at [facility]/Periop CELIAC PLEXUS BLOCK HX KNEE SURGERY -2011, removal of "extra bone" HX TONSILLECTOMY Pertinent medical/surgical history reviewed Pertinent family history reviewed Social History Substance Use Topics Smoking status: Never Smoker Smokeless tobacco: Never Used Alcohol use No History Drug Use No Allergies: Penicillins; Demerol (pf) [meperidine (pf)]; and Fentanyl Medications Current Facility-Administered Medications Medication lactated ringers infusion Review of Systems: All other systems reviewed and are negative. Physical Exam: General appearance: alert and cooperative Throat: Lips, mucosa, and tongue normal. Teeth and gums normal Lungs: clear to auscultation bilaterally Heart: regular rate and rhythm, S1, S2 normal, no murmur, click, rub or gallop Abdomen: soft, non-tender. Bowel sounds normal. No masses, no organomegaly Extremities: extremities normal, atraumatic, no cyanosis or edema @ Airway: airway assessment performed Mallampati III (soft palate, base of uvula visible) Anesthesia Classification: ASA III (A patient with a severe systemic disease that limits activity, but is not incapacitating) NPO Status: Acceptable Status: Not Lab/Radiology/Other Diagnostic Tests Labs: Hematology: Lab Results Component Value Date HGB 12.1 09/02/2017 HCT 36.1 09/02/2017 PLTCT 354 09/02/2017 WBC 10.4 09/02/2017 NEUT 65 05/22/2011 ANC 5.83 05/22/2011 ALC 2.48 05/22/2011 RBC 4.26 09/02/2017 DELICIA 5 05/22/2011 AMC 0.43 05/22/2011 EOSA 2 05/22/2011 ABC 0.04 05/22/2011 MCV 84.9 09/02/2017 MCH 28.5 09/02/2017 MCHC 33.6 09/02/2017 MPV 7.2 09/02/2017 RDW 13.0 09/02/2017 , Coagulation: No results found for: PT, PTT, INR and General Chemistry: Lab Results Component Value Date NA 134 12/09/2017 K 3.6 12/09/2017 CL 101 12/09/2017 CO2 26 12/09/2017 GAP 7 12/09/2017 BUN 11 12/09/2017 CR 0.93 12/09/2017 GLU 152 12/09/2017 CA 8.7 12/09/2017 ALBUMIN 3.8 06/03/2017 TOTBILI 0.4 06/03/2017 JONA Salcedo Pager [phone] in this encounter Plan of Treatment Date Type Specialty Care Team Description 12/09/2017 Procedure Pass Oncology 12/09/2017 Procedure Pass Oncology 02/04/2018 Procedure Pass Gastroenterology as of this encounter Procedures Procedure Name Priority Date/Time Associated Diagnosis Comments TELEMETRY STRIPS-SCAN 02/03/2018 Results for this 12:38 PM CDT procedure are in the results section. ESOPHAGOGASTRODUODENOSCOP 01/31/2018 Other chronic Y ENDOSCOPIC ULTRASOUND 1:03 PM CDT pancreatitis (HCC) Special Needs 3 day - Reminder Call - spoke with pt., 01/28/18 @ 0843 (cs)1st call. Pt scheduled for 01/31/18 1:00. 01/27/18 0912 (MF) Waiting for Rosanne to review and advise 01/14/18 1346 () in this encounter Results * TELEMETRY STRIPS-SCAN (02/03/2018 12:38 PM) Narrative Performed At Ordered by an unspecified provider. * ENDOSCOPIC ULTRASOUND REPORT (01/31/2018 12:46 PM) Provation Report Patient Name: Regulo WILKS OTHER RESULTS Procedure Date: 01/31/2018 12:46 PM CSN: [id number] Date of : 1985 Gender: Female Attending Physician: Hal Sparks MD Procedure: Upper EUS Indications: Acute recurrent pancreatitis Providers: Hal Sparks MD (Doctor), Jake Crocker MD (Fellow), Delilah Jarquin RN (Nurse), Jose Mcclure (Head Golf Professional) Referring Physician: Randy Nunez MD, Jessica Valera Medications: Monitored Anesthesia Care Complications: No immediate complications. Procedure: Pre-Anesthesia Assessment: - Prior to the procedure, a History and Physical was performed, and patient medications and allergies were reviewed. The patient's tolerance of previous anesthesia was also reviewed. The risks and benefits of the procedure and the sedation options and risks were discussed with the patient. All questions were answered, and informed consent was obtained. Prior Anticoagulants: The patient has taken no previous anticoagulant or antiplatelet agents. ASA Grade Assessment: III - A patient with severe systemic disease. After reviewing the risks and benefits, the patient was deemed in satisfactory condition to undergo the procedure. After obtaining informed consent, the endoscope was passed under direct vision. Throughout the procedure, the patient's blood pressure, pulse, and oxygen saturations were monitored continuously. The Endosonoscope was introduced through the mouth, and advanced to the second part of duodenum. The upper EUS was accomplished without difficulty. The patient tolerated the procedure well. Findings: The linear EUS scope was passed. The celiac axis was seen and there were no celiac lymph nodes visualized. The left adrenal in the left lobe of the liver were normal-appearing. The pancreas showed features of chronic pancreatitis in the form of lobulation, hyperechoic foci, stranding and hyperechoic pancreatic duct jones. The pancreatic duct was 1.2 mm in the body. The CBD is 3.5 mm. The ventral duct could not be clearly seen and there was suspicion of pancreas divisum. The dorsal duct was 1.4 mm. No masses were seen in the pancreas. The ampulla was normal-appearing. Impression: - The linear EUS scope was passed. The celiac axis was seen and there were no celiac lymph nodes visualized. The left adrenal in the left lobe of the liver were normal-appearing. The pancreas showed features of chronic pancreatitis in the form of lobulation, hyperechoic foci, stranding and hyperechoic pancreatic duct jones. The pancreatic duct was 1.2 mm in the body. The CBD is 3.5 mm. The ventral duct could not be clearly seen and there was suspicion of pancreas divisum. The dorsal duct was 1.4 mm. No masses were seen in the pancreas. The ampulla was normal-appearing. Estimated Blood Loss: Estimated blood loss: none. Recommendation: - Written discharge instructions were provided to the patient. - The signs and symptoms of potential delayed complications were discussed with the patient. - Patient has a contact number available for emergencies. - Return to normal activities tomorrow. - Resume previous diet. - Return to your referring physician. - MRI/MRCP to r/o pancreas divisum Scope In: 1:54:19 PM Scope Out: 2:03:04 PM Total Procedure Duration Time 0 hours 8 minutes 45 seconds Procedure Code(s): --- Professional --- 38682, Esophagogastroduodenoscopy, flexible, transoral; with endoscopic ultrasound examination limited to the esophagus, stomach or duodenum, and adjacent structures CPT copyright 2016 [employer]. All rights reserved. The codes documented in this report are preliminary and upon religion teacher review may be revised to meet current compliance requirements. Attending Participation: I personally performed the entire procedure. Hal Sparks MD 01/31/2018 2:08:18 PM The attending physician has electronically signed and finalized this document. Jake Crocker MD Number of Addenda: 0 Note Initiated On: 01/31/2018 12:46 PM Performing Organization Address City/State/Zipcode Phone Number [facility] OTHER RESULTS in this encounter Visit Diagnoses Diagnosis Other chronic pancreatitis (HCC) Admitting Diagnoses Diagnosis Other chronic pancreatitis (HCC) - Other chronic pancreatitis (HCC) [K86.1] Intractable vomiting with nausea, unspecified vomiting type - Intractable vomiting with nausea, unspecified vomiting type [R11.2] Administered Medications Medication Order MAR Action Action Date Dose Rate Site lactated ringers infusion Given - New 01/31/2018 1,000 mL 20 mL/hr 1,000 mL, 1,000 mL, Intravenous, at 20 Bag 13:35 CDT mL/hr, CONTINUOUS, Starting Sat01/31/18 at 1300, Until Sat01/31/18 at 1639 in this encounter
--- OUTSIDE RECORDS SUMMARY | 2018-02-13 10:54 | XMS REPORT | Encounter Summary ---
Author Author [facility] Organization [facility] Address Unknown Phone Unavailable Care Team Providers Care Grain Merchandising Manager Name Role Phone Michael Sutton MD Unavailable Unavailable Mary Whittington MD PCP Jessica Valera Unavailable Maggie Puente Unavailable Unavailable Mary Telles FURNACE FITTER Unavailable Bam Ritter MD Unavailable Radha Bo LPN Unavailable Unavailable Jose Sanchez MD Unavailable Reason for Visit * Auth/Cert Status Reason Specialty Diagnoses / Referred By Referred To Procedures Contact Contact Diagnoses Other chronic pancreatitis (HCC) Intractable vomiting with nausea, unspecified vomiting type Other chronic pancreatitis (HCC) [K86.1] Intractable vomiting with nausea, unspecified vomiting type [R11.2] P rocedures UT ESOPHAGOGASTRODU ODENOSCOPY US SCOPE W/ADJ STRXRS ENDOSCOPIC ULTRASOUND REPORT ESOPHAGOGASTRODU ODENOSCOPY ENDOSCOPIC ULTRASOUND Encounter Details Date Type Department Care Team Description 01/31/2018 Anesthesia Gastrointenstinal Catherine Waters CRNA Event Endoscopy [address] [facility] [address] [place] [address] [place] [address] Anesthesia Record Procedure Name Responsible Anesthesia Start Time Anesthesia Stop Time Anesthesiologist ESOPHAGOGASTRODUODENOSCOP Lg Garcia MD 01/31/18 1349 01/31/18 1408 Y ENDOSCOPIC ULTRASOUND (N/A ) Date Time Event Comment 1344 AN Equip Check 2017 1348 Out of Pre Procedure 1349 Anes Start 1349 An Start Data 1349 In Room 1350 Start Supplemental O2 1350 Anesthesia Ready 1354 Proc Start 1406 an stop data 1407 Handoff to RN I completed my SBAR handoff to the receiving nurse. 1408 An Stop Meds Name Total lidocaine (2%) 200 mg/10mL Injection 60 mg syringe propofol (DIPRIVAN) 200 mg/ 20 mL 130 mg injection (VIAL) propofol (DIPRIVAN) infusion 213.96 mg ondansetron (ZOFRAN) injection 4 mg diphenhydrAMINE (BENADRYL) injection 12.5 mg lactated ringers infusion 400 mL * Name O2 N2O Inspired N2O * No blood administrations on file. Type Details Placement Removal Wounds 04/10/17; 1039; Left; Flank; Surgical 04/10/17 1039 by Marco, (NOT for Incision; DERMABOND ON PORT SITES TIMUR Michelle Pressure Injuries) Peripheral 01/31/18; 1308; RN; R; Inner; Forearm; 01/31/18 1308 by 01/31 1436 by Russell, IV 20 G; 2; 01/31/18; 1436 Essence George RN Shateese, RN in this encounter Social History Tobacco Use Types Packs/Day [...] impairment: Yes 06/03/2017 as of this encounter OR Notes * Anesthesia Postprocedure Evaluation - Lg Garcia MD - 01/31/2018 2:33 PM CDT Post-Anesthesia Evaluation Name: Janeth Rajput : 1985 Age: 32 y.o. Sex: female Procedure Date: 01/31/2018 Procedure: Procedure(s): ESOPHAGOGASTRODUODENOSCOPY ENDOSCOPIC ULTRASOUND Surgeon: Surgeon(s): Hal Sparks MD Desai, Madhav, MBBS Post-Anesthesia Vitals BP: 114/61 (01/31 1426) Temp: 36.4 C (97.5 F) (01/31 1408) Pulse: 70 (01/31 1426) Respirations: 19 PER MINUTE (01/31 142) SpO2: 97 % (01/31 1426) O2 Delivery: None (Room Air) (02/01 1408) SpO2 Pulse: 68 (01/31 142) Post Anesthesia Evaluation Note Evaluation location: Pre/Post Patient participation: recovered; patient participated in evaluation Level of consciousness: alert Pain score: 0 Pain management: adequate Hydration: normovolemia Temperature: 36.0C - 38.4C Airway patency: adequate Perioperative Events Perioperative events: no Post-op nausea and vomiting: no PONV Postoperative Status Cardiovascular status: hemodynamically stable Respiratory status: spontaneous ventilation Follow-up needed: none Perioperative Events Perioperative Event: No Emergency Case Activation: No * Anesthesia Preprocedure Evaluation - Loretta Capellan CRNA - 01/31/2018 1:00 PM CDT Formatting of this note may be different from the original. Anesthesia Pre-Procedure Evaluation Name: Janeth Rajput : 1985 Age: 32 y.o. Sex: female Procedure Date: 01/31/2018 Procedure: Procedure(s): ESOPHAGOGASTRODUODENOSCOPY ENDOSCOPIC ULTRASOUND Physical Assessment Vital Signs (last filed in past 24 hours): BP: 127/42 (01/31 1244) Temp: 36.8 C (98.2 F) (01/31 1244) Pulse: 71 (02/01 1244) Respirations: 16 PER MINUTE (02/01 1244) SpO2: 99 % (02/01 1244) O2 Delivery: None (Room Air) (02/01 1244) Height: 157.5 cm (62") (02/01 1244) Weight: 120.2 kg (265 lb) (02/01 1244) Patient History Allergies Allergen Reactions Penicillins UNKNOWN Demerol (Pf) [Meperidine (Pf)] ITCHING Fentanyl ITCHING Current Medications Medication Directions acetaminophen (TYLENOL) 500 mg tablet Take 1,000 [...] 2 capsules by mouth at bedtime daily. Patient taking differently: Take 60 mg by mouth at bedtime daily. HYDROcodone/acetaminophen (NORCO) 7.5/325 mg tablet Take 1 tablet by mouth every 6 hours as needed for Pain Indications: PAIN hydrocortisone 2.5% (PROCTO-MED HC) 2.5 % rectal cream Apply externally and internally to area(s) twice to three times a day as needed. ukfjnr-celhqvzi-aauenol (VIOKACE) 20,880-78,300- 78,300 unit tab Take 3 tablets by mouth three times daily with meals. Take 2 with snacks. ondansetron (ZOFRAN ODT) 8 mg rapid dissolve tablet Dissolve 1 tablet by mouth twice daily. Place on tongue to disolve. rOPINIRole (REQUIP) 4 mg tablet Take 4 mg by mouth at bedtime daily. Review of Systems/Medical History Patient summary reviewed Nursing notes reviewed Pertinent labs reviewed PONV Screening: Hx PONV/motion sickness No history of anesthetic complications (pt requests IV zofran and benadryl pre- op as it has helped in the past) No family history of anesthetic complications Airway Short neck, large neck circumference Pulmonary Asthma (mild asthma) Loud snoring; Patient reports sleep study ~ 2 years ago which was negative for sleep apnea Cardiovascular Exercise tolerance: >4 METS DVT (from PICC line, resolved) GI/Hepatic/Renal GERD, well controlled Renal disease (renal CA, s/p left nephrectomy): prior nephrectomy Nausea Vomiting Incisional hernia repair at site of left nephrectomy, with fluid collecting chronically Chronic pancreatitis Intermittent N/V; Denies N/V today H/o cholecystectomy Neuro/Psych Psychiatric history (h/o suicide attempt in past; No current suicidial ideations ) Depression RLS Musculoskeletal - negative Endocrine/Other Malignancy (renal CA s/p nephrectomy) Obesity H/o hysterectomy/BSO secondary to endometriosis Physical Exam Airway Findings Mallampati: I TM distance: >3 FB Neck ROM: full Mouth opening: good Airway patency: adequate Comments: Short neck Dental Findings: Negative Cardiovascular [...] 09/02/2017 MPV 7.2 09/02/2017 RDW 13.0 09/02/2017 General Chemistry: Lab Results Component Value Date NA 134 12/09/2017 K 3.6 12/09/2017 CL 101 12/09/2017 CO2 26 12/09/2017 GAP 7 12/09/2017 BUN 11 12/09/2017 CR 0.93 12/09/2017 GLU 152 12/09/2017 CA 8.7 12/09/2017 ALBUMIN 3.8 06/03/2017 TOTBILI 0.4 06/03/2017 Coagulation: No results found for: PT, PTT, INR Anesthesia Plan ASA score: 3 Plan: MAC Induction method: intravenous NPO status: acceptable Informed Consent Anesthetic plan and risks discussed with patient. Use of blood products discussed with patient Plan discussed with: anesthesiologist and CONCRETE PLACEMENT EQUIPMENT OPERATOR. Comments: (Risks of GETA including sore throat, oral/dental injury, allergic reactions, PONV, aspiration, respiratory failure, CT, CVA discussed with patient who reports understanding and consents to anesthetic plan. Araseli Mandel * Anesthesia Preprocedure Evaluation - Loertta Capellan CRNA - 01/31/2018 12:56 PM CDT Formatting of this note may be different from the original. Anesthesia Pre-Procedure Evaluation Name: Janeth Rajput : 1985 Age: 32 y.o. Sex: female Procedure Date: 01/31/2018 Procedure: Procedure(s): ESOPHAGOGASTRODUODENOSCOPY ENDOSCOPIC ULTRASOUND Physical Assessment Vital Signs (last filed in past 24 hours): BP: 127/42 (01/31 124) Temp: 36.8 C (98.2 F) (02/01 1244) Pulse: 71 (02/01 1244) Respirations: 16 PER MINUTE (02/01 1244) SpO2: 99 % (02/01 1244) O2 Delivery: None (Room Air) (02/01 1244) Height: 157.5 cm (62") (02/01 1244) Weight: 120.2 kg (265 lb) (02/01 1244) Patient History Allergies Allergen Reactions Penicillins UNKNOWN Demerol (Pf) [Meperidine (Pf)] ITCHING Fentanyl ITCHING Current Medications Medication Directions acetaminophen (TYLENOL) 500 mg tablet Take 1,000 [...] 2 capsules by mouth at bedtime daily. Patient taking differently: Take 60 mg by mouth at bedtime daily. HYDROcodone/acetaminophen (NORCO) 7.5/325 mg tablet Take 1 tablet by mouth every 6 hours as needed for Pain Indications: PAIN hydrocortisone 2.5% (PROCTO-MED HC) 2.5 % rectal cream Apply externally and internally to area(s) twice to three times a day as needed. krkzlc-xcadmnvz-iulyash (VIOKACE) 20,880-78,300- 78,300 unit tab Take 3 tablets by mouth three times daily with meals. Take 2 with snacks. ondansetron (ZOFRAN ODT) 8 mg rapid dissolve tablet Dissolve 1 tablet by mouth twice daily. Place on tongue to disolve. rOPINIRole (REQUIP) 4 mg tablet Take 4 mg by mouth at bedtime daily. Review of Systems/Medical History Patient summary reviewed Nursing notes reviewed Pertinent labs reviewed PONV Screening: Hx PONV/motion sickness and Female gender No history of anesthetic complications No family history of anesthetic complications Pulmonary Not a current smoker Asthma (mild asthma) Loud snoring; Patient reports sleep study ~ 2 years ago which was negative for sleep apnea Cardiovascular - negative Exercise tolerance: >4 METS GI/Hepatic/Renal GERD, well controlled Renal disease (left renal mass s/p lap nephrectomy 03/2017): prior nephrectomy Nausea Vomiting Left renal mass Chronic pancreatitis Intermittent N/V; Denies N/V today H/o cholecystectomy Pancreatitis (hx of) Neuro/Psych Psychiatric history (h/o suicide attempt in past; No current suicidial ideations ) Depression RLS Musculoskeletal Arthritis (knees) Endocrine/Other Malignancy (left renal CA s/p nephrectomy) Obesity H/o hysterectomy/BSO secondary to endometriosis Hx of celiac plexus block Physical Exam Airway Findings Mallampati: I TM distance: >3 FB Neck ROM: full Mouth opening: good Airway patency: adequate Comments: Short neck, large neck circumference Dental Findings: Negative Cardiovascular Findings: Negative Pulmonary [...] 09/02/2017 MPV 7.2 09/02/2017 RDW 13.0 09/02/2017 General Chemistry: Lab Results Component Value Date NA 134 12/09/2017 K 3.6 12/09/2017 CL 101 12/09/2017 CO2 26 12/09/2017 GAP 7 12/09/2017 BUN 11 12/09/2017 CR 0.93 12/09/2017 GLU 152 12/09/2017 CA 8.7 12/09/2017 ALBUMIN 3.8 06/03/2017 TOTBILI 0.4 06/03/2017 Coagulation: No results found for: PT, PTT, INR Anesthesia Plan ASA score: 3 Plan: MAC Induction method: intravenous NPO status: acceptable Informed Consent Anesthetic plan and risks discussed with patient. Use of blood products discussed with patient Blood Consent: consented Plan discussed with: CONCRETE PLACEMENT EQUIPMENT OPERATOR and anesthesiologist. Comments: (Risks of GETA including sore throat, oral/dental injury, allergic reactions, PONV, aspiration, respiratory failure, CT, CVA discussed with patient who reports understanding and consents to anesthetic plan. Araseli Kuhn M.D. ) in this encounter Plan of Treatment Date Type Specialty Care Team Description 12/09/2017 Procedure Pass Oncology 12/09/2017 Procedure Pass Oncology 02/04/2018 Procedure Pass Gastroenterology as of this encounter Visit Diagnoses Not on filein this encounter Administered Medications Medication Order MAR Action Action Date Dose Rate Site diphenhydrAMINE (BENADRYL) injection Given 01/31/2018 12.5 mg INTRA-PROCEDURE MED, Starting Sat:49 CDT 01/31/18 at 1349, Until Sat01/31/18 at 1410, Anesthesia Intra-op lidocaine (PF) injection Given 01/31/2018 60 mg INTRA-PROCEDURE MED, Starting Sat:49 CDT 01/31/18 at 1349, Until Sat01/31/18 at 1410, Anesthesia Intra-op ondansetron (ZOFRAN) injection Given 01/31/2018 4 mg INTRA-PROCEDURE MED, Starting Sat:49 CDT 01/31/18 at 1349, Until 8/17/18 at 1410, Nausea/Vomiting Injectable, Anesthesia Intra-op propofol (DIPRIVAN) infusion Given - New 01/31/2018 120 86.5 mL/hr 20 mL, Intravenous, INTRA-PROCEDURE Bag 13:49 CDT mcg/kg/min MED(CONT), Starting Sat01/31/18 at 1349, Until Sat01/31/18 at 1410, Anesthesia Intra-op Dose/Rate Change 01/31/2018 140 101 mL/hr 13:58 CDT mcg/kg/min propofol (DIPRIVAN) injection Given 01/31/2018 20 mg INTRA-PROCEDURE MED, Starting Sat 13:55 CDT 01/31/18 at 1352, Until Sat01/31/18 at 1410, Anesthesia Intra-op Given 01/31/2018 20 mg 13:58 CDT Given 01/31/2018 30 mg 14:01 CDT in this encounter
--- OUTSIDE RECORDS SUMMARY | 2018-02-13 10:54 | XMS REPORT | Clinical Summary ---
Author Author [facility] Organization [facility] Address Unknown Phone Unavailable Care Team Providers Care Deck Engineer Name Role Phone Michael Sutton MD [...] in the Health Information Management department at [phone] for further assistance in locating additional records.[facility] Allergies Active Allergy Reactions Severity Noted Date [...] DAYS 18 mcg/mL injectionIndications: Medication monitoring encounter kbllhe-ifddvhqr-aulfqtc Take 3 tablets by mouth 300 tablet 5 12/12/19 Active (VIOKACE) 20,880-78,300- three times daily with 18 78,300 unit tab meals. Take 2 with snacks. hydrocortisone 2.5% Apply externally and 30 g 0 12/14/19 Active (PROCTO-MED HC) 2.5 % internally to area(s) 18 rectal cream twice to three times a day as needed. Active Problems Problem Noted Date Other chronic pancreatitis (HCC) 01/14/2018 Overview: Added automatically from request for surgery [id number] Intractable vomiting with nausea 01/14/2018 Overview: Added automatically from request for surgery [id number] Left renal mass 04/10/2017 Renal mass 03/21/2017 Overview: Added automatically from request for surgery [id number] 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 06/24/2013 Overview: S/P HOLLAND, BSO 11/27 Depression 06/24/2013 S/P cholecystectomy 06/24/2013 Overview: 2007 S/P appendectomy 06/24/2013 Overview: November 2012 Pancreatitis 10/23/2011 Encounters Date Type Specialty Care Team Description 02/04/2018 Telephone Gastroenterology Jessica Valera ARNP Results; Follow-up Phone Call 01/31/2018 [facility] Hal Sparks MD Other chronic Encounter pancreatitis (HCC) 01/31/2018 Anesthesia Catherine Waters, SAKINA Event 01/31/2018 Procedure Pass 01/31/2018 Surgery Hal Sparks MD ESOPHAGOGASTRODUODENOSCOP Y ENDOSCOPIC ULTRASOUND 01/14/2018 Telephone Gastroenterology Hal Sparks MD Appointment Request 01/14/2018 Prep for Case Gastroenterology Randy Nunez MD Other chronic pancreatitis (HCC) (Primary Dx); Intractable vomiting with nausea, unspecified vomiting type 01/13/2018 Telephone Gastroenterology Randy Nunez MD Follow-up Phone Call; Records Request 01/07/2018 Telephone Gastroenterology Randy Nunez MD Follow-up Phone Call 12/25/2017 Telephone Oncology Abel Poe MD Medication Update 12/17/2017 Telephone Gastroenterology Moraima Jessica, BUILDING MATERIALS SALES ATTENDANT Medication Follow-up 12/17/2017 Orders Only Gastroenterology [employer], Jessica, BUILDING MATERIALS SALES ATTENDANT Diarrhea, unspecified type 12/16/2017 Orders Only Gastroenterology [employer], Jessica, BUILDING MATERIALS SALES ATTENDANT Diarrhea, unspecified type 12/13/2017 Telephone Gastroenterology Randy Nunez MD Other 12/13/2017 Telephone Gastroenterology Jessica Valera ARNP C Diff ( Positive C Diff) 12/13/2017 Telephone Gastroenterology Moraima JessicaKHOA Prior Authorization (Viokace ) 12/11/2017 Telephone Gastroenterology Jessica Valera ARNP Other (plan of care) 12/10/2017 Telephone Gastroenterology Moraima JessicaKHOA nickerson Prior Authorization (Hydrocortisone rectal suppository 25mg ) 12/10/2017 Ancillary Radiology Outpatient, Radiologist Diagnosis unknown Orders 12/10/2017 Ancillary Radiology Outpatient, Radiologist Orders 12/10/2017 Ancillary Radiology Outpatient, Radiologist Diagnosis unknown Orders 12/09/2017 Office Visit Gastroenterology Moraima Jessica BUILDING MATERIALS SALES ATTENDANT Diarrhea, unspecified type (Primary Dx); Epigastric pain; Chronic pancreatitis, unspecified pancreatitis type (HCC); Nausea and vomiting, intractability of vomiting not specified, unspecified vomiting type 12/09/2017 Office Visit Oncology Abel Poe MD Left renal mass ( Primary Dx) 12/09/2017 Hospital Radiology Abel Poe MD Encounter 12/04/2017 Telephone Gastroenterology Randy Nunez MD Other 05/06/2017 Procedure Pass Radiology 05/06/2017 Procedure Pass [...] F) 01/31/2018 2:08 PM CDT Respiratory Rate 20 12/09/2017 1:24 PM CDT Oxygen Saturation 97% 01/31/2018 2:26 PM CDT Inhaled Oxygen - - Concentration Weight 120.2 kg (265 lb) 01/31/2018 12:44 PM CDT Height 157.5 cm (5' 2") 01/31/2018 12:44 PM CDT Body Mass Index 48.47 01/31/2018 12:44 PM CDT Plan of Treatment Date Type Specialty Care Team Description 12/09/2017 Procedure Pass Oncology 12/09/2017 Procedure Pass Oncology 02/04/2018 Procedure Pass Gastroenterology Health Maintenance Due Date Last Done Comments PHYSICAL (COMPREHENSIVE) 1991 EXAM PERTUSSIS VACCINE 1995 HIV SCREENING 1999 TETANUS VACCINE 2001 CERVICAL CANCER SCREENING 2014 INFLUENZA VACCINE 03/17/2018 Procedures Procedure Name Priority Date/Time Associated Diagnosis Comments TELEMETRY STRIPS-SCAN 02/03/2018 Results for this 12:38 PM CDT procedure are in the results section. ESOPHAGOGASTRODUODENOSCOP 01/31/2018 Other chronic Y ENDOSCOPIC ULTRASOUND 1:03 PM CDT pancreatitis (HCC) Special Needs 3 day - Reminder Call - spoke with pt., 01/28/18 @ 0843 ()1st call. Pt scheduled for 01/31/18 1:00. 01/27/18 0912 () Waiting for Rosanne to review and advise 01/14/18 1346 () from Last 3 Months Results * TELEMETRY STRIPS-SCAN (02/03/2018 12:38 PM) Narrative Performed At Ordered by an unspecified provider. * ENDOSCOPIC ULTRASOUND REPORT (01/31/2018 12:46 PM) Provation Report Patient Name: Regulo WILKS OTHER RESULTS Procedure Date: 01/31/2018 12:46 PM CSN: [id number] Date of : 1985 Gender: Female Attending Physician: Hal Sparks MD Procedure: Upper EUS Indications: Acute recurrent pancreatitis Providers: Hal Sparks MD (Doctor), Jake Crocker MD (Fellow), Delilah Jarquin RN (Nurse), Jose Mcclure (Marine Engine Machinist Apprentice) Referring Physician: Randy Nunez MD, Jessica Valera [...] 45 seconds Procedure Code(s): --- Professional --- 78236, Esophagogastroduodenoscopy, flexible, transoral; with endoscopic ultrasound examination limited to the esophagus, stomach or duodenum, and adjacent structures CPT copyright 2016 [employer]. All rights reserved. The codes documented in this report are preliminary and upon promotions specialist review may be revised to meet current compliance requirements. Attending Participation: I personally performed the entire procedure. Hal Sparks MD 01/31/2018 2:08:18 PM The attending physician has electronically signed and finalized this document. Jake Crocker MD Number of Addenda: 0 Note Initiated On: 01/31/2018 12:46 PM Performing Organization Address City/State/Zipcode Phone Number [facility] OTHER RESULTS * C DIFFICILE BY PCR (12/11/2017) Narrative Performed At Performing Organization Address City/State/Zipcode Phone Number OTHER OUTSIDE LAB * LEUKOCYTES, FECAL (12/11/2017) Specimen Stool Narrative Performed At Performing Organization Address City/State/Zipcode Phone Number MAIN [facility] [address] [place] [address] * GIARDIA SCREEN,FECAL (12/11/2017) Narrative Performed At Performing Organization Address City/State/Zipcode Phone Number MAIN [facility] [address] [place] [address] * CULTURE-FECES W/SENSITIVITY (12/11/2017) Specimen Stool Narrative Performed At Performing Organization Address [facility]/Zipcode Phone Number MAIN LAB [address] [place] [address] * CRYPTOSPORIDUM,FECAL (12/11/2017) Specimen Stool Narrative Performed At Performing Organization Address [facility] Phone Number [facility] [address] [place] [address] * BASIC METABOLIC PANEL (12/09/2017 11:38 AM) Sodium 134 (L) 137 - 147 MMOL/L [facility] Potassium 3.6 3.5 - 5.1 MMOL/L [facility] Chloride 101 98 - 110 MMOL/L [facility] CO2 26 21 - 30 MMOL/L [facility] Anion Gap 7 3 - 12 [facility] Glucose 152 (H) 70 - 100 MG/DL [facility] Blood Urea Nitrogen 11 7 - 25 MG/DL [facility] Creatinine 0.93 0.4 - 1.00 MG/DL [facility] Calcium 8.7 8.5 - 10.6 MG/DL [facility] eGFR Non >60 >60 mL/min [facility] Comment: The eGFR is not validated for use in drug dosing adjustments.Continue to use estimated creatinine clearance per dosing reference text.Please contact the Clinical Pharmacist for questions. eGFR >60 >60 mL/min [facility] Comment: The eGFR is not validated for use in drug dosing adjustments.Continue to use estimated creatinine clearance per dosing reference text.Please contact the Clinical Pharmacist for questions. Specimen Blood Performing Organization Address [facility] Phone Number [facility] [address] [place] [address] * POC CREATININE, RAD (12/09/2017 9:55 AM) Creatinine, POC 0.8 0.4 - 1.00 MG/DL [facility] Performing Organization Address [facility] Phone Number [facility] [address] [place] [address] * CT ABDOMEN W CONTRAST (12/09/2017 9:55 AM) Impressions Performed At CHEST: [facility] RESULTS 1.Compromised exam due to respiratory motion. 2.No [...] Leone D.O. on 12/09/2017 11:[address] AM. Narrative Performed At CT CHEST AND ABDOMEN [facility] RESULTS Clinical Indication:Female, 32 years old. Left renal [...] nodule (image 3/34) is unchanged since July 2017 , was poorly seen in March 2017, and [...] Aidan Leone D.O. on 12/09/2017 11:22 AM. Performing Organization Address City/State/Zipcode Phone Number [facility] RESULTS * CT CHEST W CONTRAST (12/09/2017 9:55 AM) Impressions Performed At CHEST: [facility] RESULTS 1.Compromised exam due to respiratory motion. 2.No [...] Leone D.O. on 12/09/2017 11:22 AM. Narrative Performed At CT CHEST AND ABDOMEN [facility] RESULTS Clinical Indication:Female, 32 years old. Left renal [...] nodule (image 3/34) is unchanged since July 2017 , was poorly seen in March 2017, and [...] Aidan Leone D.O. on 12/09/2017 11:22 AM. Performing Organization Address City/State/Zipcode Phone Number [facility] RESULTS from Last 3 Months
--- OUTSIDE RECORDS SUMMARY | 2018-02-13 10:54 | XMS REPORT | Encounter Summary ---
Author Author [facility] Organization [facility] Address Unknown Phone Unavailable Care Team Providers Care Anesthesiologist Name Role Phone Michael Sutton MD Unavailable Unavailable Mary Whittington MD PCP Jessica Valera Unavailable Maggie Puente Unavailable Unavailable Robert-Mary Moore APRN Unavailable Bam Ritter MD Unavailable Radha Bo LPN Unavailable Unavailable Jose Sanchez MD Unavailable Encounter Details Date Type Department Care Team Description 01/31/2018 Procedure Pass Gastrointenstinal Endoscopy [address] [place] [address] Social History Tobacco Use Types [...]
--- OUTSIDE RECORDS SUMMARY | 2018-02-13 10:54 | XMS REPORT | Encounter Summary ---
Author Author [facility] Organization [facility] Address Unknown Phone Unavailable Care Team Providers Care Wrap Checker Name Role Phone Michael Sutton MD Unavailable Unavailable Mary Whittington MD PCP Jessica Valera MANAGER BANK Unavailable Maggie Puente Unavailable Unavailable Mary Telles SUPPORT SERVICES COORDINATOR Unavailable Bam Ritter MD Unavailable Radha Bo LION TAMER Unavailable Unavailable Jose Sanchez MD Unavailable Reason for Referral * Radiology Services (Routine) Status Reason Specialty Diagnoses / Referred By Referred To Procedures Contact Contact No Auth Needed Radiology Diagnoses Moraima, Jessica, Bhb Mri Chronic MANAGER BANK [address] pancreatitis, [address] [place], [place] pancreatitis [place] 1023 [id number] type (HCC) [place], [place] Phone: P [phone] rocedures Phone: MRI MRCP [phone] Reason for Visit * Reason Comments Results Follow-up Phone Call Encounter Details Date Type Department Care Team Description 02/04/2018 Telephone [facility] UtCharo weavera, MANAGER BANK Results; Follow-up Phone Physicians [address] Call Ortho and Medical [place] [address] [place] [address] [phone] [place] [address] Social History Tobacco Use Types [...] Telephone Encounter - Radha Bo LPN - 02/10/2018 2:30 PM CDT Pt scheduled for MRCP 02/19/18 * Telephone Encounter - Radha Bo LPN - 02/04/2018 10:38 AM CDT Called pt to relay recommendations. Pt states she is currently in ER at [facility] d/t abd pain. Spoke to ER MD who states Lipase was 120 and once pt is finished receiving IV fluids will be d/c home (will request records) Pt agreeable to MRCP ----- Message from KHOA Mayorga sent at 01/31/2018 3:18 PM CDT ----- Radha - Please schedule patient for MRI/MRCP to evaluate for pancreas divisum - h/o chronic pancreatitis. Thank you! Jessica ----- Message ----- From: Hal Sparks MD Sent: 01/31/2018 2:03 PM To: KHOA Mayorga, Randy Nunez MD Did her EUS. Has features of chronic pancreatitis. I was suspecting pancreas divisum on the EUS. Please schedule for MRI/MRCP to confirm whether she has divisum or not. in this encounter Plan of Treatment Date Type Specialty Care Team Description 12/09/2017 Procedure Pass Oncology 12/09/2017 Procedure Pass Oncology 02/04/2018 Procedure Pass Gastroenterology Name Priority Associated Diagnoses Order Schedule MRI MRCP Routine Chronic pancreatitis, Expected: 02/04/2018 unspecified pancreatitis (Approximate), Expires: type (HCC) 02/04/2019 as of this encounter Visit Diagnoses Diagnosis Chronic pancreatitis, unspecified pancreatitis type (HCC) - Primary
--- OUTSIDE RECORDS SUMMARY | 2018-02-13 10:54 | XMS REPORT | Encounter Summary ---
Author Author [facility] Organization [facility] Address Unknown Phone Unavailable Care Team Providers Care Instrumentation And Control Technician Name Role Phone Michael Sutton MD [...] nausea, unspecified vomiting type [R11.2] P rocedures ID ESOPHAGOGASTRODU ODENOSCOPY US SCOPE W/ADJ STRXRS ENDOSCOPIC ULTRASOUND REPORT ESOPHAGOGASTRODU ODENOSCOPY ENDOSCOPIC ULTRASOUND Encounter Details Date Type Department Care Team Description 01/31/2018 Surgery Gastrointenstinal Hal Sparks MD ESOPHAGOGASTRODUODENOSCOP Endoscopy [address] ENDOSCOPIC ULTRASOUND [address] [place] [address] [place] [address] [place] [address] [phone] Social History Tobacco Use Types Packs/Day Years [...] or concerns after your procedure please call [phone] M-F 8am-5:00 pm. After 5:00 pm, holidays or weekends call [phone] and ask for the GI Doctor chemistry quality control analyst. in this encounter Medications at Time of [...] to three times a day as needed. [id number] Take 3 tablets by mouth 300 tablet [...] 06/03/2017 TOTBILI 0.4 06/03/2017 JONA Salcedo Pager [phone] in this encounter Plan of Treatment Date [...] RESULTS Procedure Date: 01/31/2018 12:46 PM CSN: [id number] Date of : 1985 Gender: Female Attending Physician: Hal Sparks MD Procedure: Upper EUS Indications: Acute recurrent pancreatitis Providers: Hal Sparks MD (Doctor), Jake Crocker MD (Fellow), Delilah Jarquin RN (Nurse), Jose Mcclure (Mold Burner) Referring Physician: Randy Nunez MD, Jessica Valera [...] 45 seconds Procedure Code(s): --- Professional --- 07611, Esophagogastroduodenoscopy, flexible, transoral; with endoscopic ultrasound examination limited to the esophagus, stomach or duodenum, and adjacent structures CPT copyright 2016 [employer]. All rights reserved. The codes documented in this report are preliminary and upon certified coder review may be revised to meet current [...] Visit Diagnoses Diagnosis Other chronic pancreatitis (HCC) Intractable vomiting with nausea, unspecified vomiting type Admitting Diagnoses Diagnosis Other chronic pancreatitis (HCC) [...]
--- OUTSIDE RECORDS SUMMARY | 2018-02-13 10:55 | XMS REPORT | Encounter Summary ---
Author Author [facility] Organization [facility] Address Unknown Phone Unavailable Care Team Providers Care Service Desk Lead Name Role Phone Michael Sutton MD Unavailable Unavailable Mary Whittington MD PCP Jessica Valera Unavailable Maggie Puente Unavailable Unavailable Mary Telles APRN Unavailable Bam Ritter MD Unavailable Radha Bo LPN Unavailable Unavailable Jose Sanchez MD Unavailable Reason for Visit * Reason Comments Medication Update Encounter Details Date Type Department Care Team Description 12/25/2017 Telephone [facility] Abel Poe MD Medication Update Cancer Center - Exam [address] [facility] [place] [address] [place] [address] [place], [place] [phone] Social History Tobacco Use Types Packs/Day Years [...] from her abd mesh. Her doctors in [place] asked her to keep her physicians here in the loop. Will relay info to Dr. Poe. in this encounter Plan of Treatment Date Type Specialty Care Team Description 12/09/2017 Procedure Pass Oncology 12/09/2017 Procedure Pass Oncology 02/04/2018 Procedure Pass Gastroenterology as of this encounter Visit Diagnoses Not on filein this encounter
--- OUTSIDE RECORDS SUMMARY | 2018-02-13 10:55 | XMS REPORT | Encounter Summary ---
Author Author [facility] Organization [facility] Address Unknown Phone Unavailable Care Team Providers Care It Analyst Name Role Phone Michael Sutton MD Unavailable Unavailable Mary Whittington MD PCP Jessica Valera Unavailable Maggie Puente Unavailable Unavailable Mary Telles APRN Unavailable Bam Ritter MD Unavailable Radha Bo LPN Unavailable Unavailable Jose Sanchez MD Unavailable Encounter Details Date Type Department Care Team Description 01/14/2018 Prep for Case [facility] Randy Nunez MD Other chronic Physicians [address] pancreatitis (HCC) Ortho and Medical MS 1023 (Primary Dx); [address] [place] [address] Intractable vomiting with [address] [phone] nausea, unspecified [place], [place] vomiting type [phone] Social History Tobacco Use Types Packs/Day [...] Gastroenterology as of this encounter Visit Diagnoses Diagnosis Other chronic pancreatitis (HCC) - Primary Intractable vomiting with nausea, unspecified vomiting type
--- OUTSIDE RECORDS SUMMARY | 2018-02-13 10:55 | XMS REPORT | Encounter Summary ---
Author Author [facility] Organization [facility] Address Unknown Phone Unavailable Care Team Providers Care Db2 Developer Name Role Phone Michael Sutton MD Unavailable Unavailable Mary Whittington MD PCP UtJessica weaver Unavailable Maggie Puente Unavailable Unavailable Mary Telles APRN Unavailable Bam Ritter MD Unavailable Radha Bo LPN Unavailable Unavailable Jose Sanchez MD Unavailable Encounter Details Date Type Department Care Team Description 12/16/2017 Orders Only [facility] Jessica Valera ARNP Diarrhea, unspecified Physicians [address] type Ortho and Medical [place] [address] [place] [address] [phone] [place] [address] Social History Tobacco Use Types [...] Procedure Pass Gastroenterology as of this encounter Results * C DIFFICILE BY PCR (12/11/2017) Narrative Performed At Performing Organization Address City/State/Zipcode Phone Number OTHER OUTSIDE LAB in this encounter Visit Diagnoses Diagnosis Diarrhea, unspecified type
--- OUTSIDE RECORDS SUMMARY | 2018-02-13 10:55 | XMS REPORT | Encounter Summary ---
Author Author [facility] Organization [facility] Address Unknown Phone Unavailable Care Team Providers Care Generator Rebuilder Name Role Phone Michael Sutton MD Unavailable Unavailable Mary Whittington MD PCP Jessica Valera Unavailable Maggie Puente Unavailable Unavailable Mary Telles APRN Unavailable Bam Ritter MD Unavailable Radha Bo LPN Unavailable Unavailable Jose Sanchez MD Unavailable Reason for Visit * Reason Comments Medication Follow-up Encounter Details Date Type Department Care Team Description 12/17/2017 Telephone [facility] Jessica Valera ARNP Medication Follow-up Physicians [address] Ortho and Medical [place] [address] [place] [address] [address] [facility] [phone] [place] [address] Social History Tobacco Use Types [...] cramping and diarrhea. Spoke w/ Pao at [facility] who states pt has picked [...]
--- OUTSIDE RECORDS SUMMARY | 2018-02-13 10:55 | XMS REPORT | Encounter Summary ---
Author Author [facility] Organization [facility] Address Unknown Phone Unavailable Care Team Providers Care Transformation Architect Name Role Phone Michael Sutton MD Unavailable Unavailable Mary Whittington MD PCP Jessica Valera Unavailable Maggie Puente Unavailable Unavailable Mary Telles APRN Unavailable Bam Ritter MD Unavailable Radha Bo LPN Unavailable Unavailable Jose Sanchez MD Unavailable Reason for Visit * Reason Comments Follow-up Phone Call Records Request Encounter Details Date Type Department Care Team Description 01/13/2018 Telephone [facility] Randy Nunez MD Follow- up Phone Call; Physicians - Internal [address] [place] [address] Records Request Medicine [place] [address] [place] [address] [address] [facility] [phone] [place] [address] [phone] Social History Tobacco Use Types Packs/Day Years [...] Telephone Encounter - Arleen Leone RN - 01/14/2018 11:09 AM CDT Left message with patient regarding Dr. Nunez's response. * Telephone Encounter - Randy Nunez MD - 01/13/2018 2:05 PM CDT OK to schedule for pancreatic EUS * Telephone Encounter - Arleen Leone RN - 01/13/2018 10:08 AM CDT Patient has seen Dr. Sanchez, Surgeon in [place], [place] and believes patient needs another EUS. Patient "can't keep anything down." Taking a total of 18mg of Zofran daily. Has middle abd patient that goes through to right side of back "hurt, stabbing pain." Diet is water, apple sauce and ice chips. No weight loss. Unable to take enzymes. Patient believes recent Dr. Whittington blood work is not normal. No longer has PICC or antibiotics. Has BM improvement since c-diff has been treated and is not liquid. Patient tired/fatigued. Will update Dr. Nunez and patient aware requesting records from recent [facility] admission/discharge a few weeks ago, Dr. Sanchez and Dr. Whittington recent records to review. in this encounter Plan of Treatment Date Type Specialty Care Team Description 12/09/2017 Procedure Pass Oncology 12/09/2017 Procedure Pass Oncology 02/04/2018 Procedure Pass Gastroenterology as of this encounter Visit Diagnoses Not on filein this encounter
--- OUTSIDE RECORDS SUMMARY | 2018-02-13 10:55 | XMS REPORT | Encounter Summary ---
Author Author [facility] Organization [facility] Address Unknown Phone Unavailable Care Team Providers Care Biology Specimen Technician Name Role Phone Michael Sutton MD Unavailable Unavailable Mary Whittington MD PCP Jessica Valera Unavailable Maggie Puente Unavailable Unavailable Mary Telles APRN Unavailable Bam Ritter MD Unavailable Radha Bo LPN Unavailable Unavailable Jose Sanchez MD Unavailable Reason for Visit * Reason Comments Follow-up Phone Call Encounter Details Date Type Department Care Team Description 01/07/2018 Telephone [facility] Randy Nunez MD Follow- up Phone Call Physicians - Internal [address] [facility] Medicine [place] [address] [place] [address] [address] [facility] [phone] [place] [address] [phone] Social History Tobacco Use Types Packs/Day Years [...] Telephone Encounter - Arleen Leone RN - 01/07/2018 12:17 PM CDT Attempt to contact patient regarding phone call forwarded to nursing after 4: 30pm. Only able to leave message our office has called back. in this encounter Plan of Treatment Date Type Specialty Care Team Description 12/09/2017 Procedure Pass Oncology 12/09/2017 Procedure Pass Oncology 02/04/2018 Procedure Pass Gastroenterology as of this encounter Visit Diagnoses Not on filein this encounter
--- OUTSIDE RECORDS SUMMARY | 2018-02-13 10:55 | XMS REPORT | Encounter Summary ---
Author Author [facility] Organization [facility] Address Unknown Phone Unavailable Care Team Providers Care Manager Fine Name Role Phone Michael Sutton MD Unavailable Unavailable Mary Whittington MD PCP Jessica Valera Unavailable Maggie Puente Unavailable Unavailable Mary Telles APRN Unavailable Bam Ritter MD Unavailable Radha Bo LPN Unavailable Unavailable Jose Sanchez MD Unavailable Reason for Visit * Reason Comments Other Encounter Details Date Type Department Care Team Description 12/13/2017 Telephone [facility] Randy Nunez MD Other Physicians - Internal [address] [facility] Medicine [place] [address] [place] [address] [address] [facility] [phone] [place] [address] [phone] Social History Tobacco Use Types Packs/Day Years [...]
--- OUTSIDE RECORDS SUMMARY | 2018-02-13 10:55 | XMS REPORT | Encounter Summary ---
Author Author [facility] Organization [facility] Address Unknown Phone Unavailable Care Team Providers Care Veterinary Receptionist Name Role Phone Michael Sutton MD Unavailable Unavailable Mary Whittington MD PCP Jessica Valera Unavailable Maggie Puente Unavailable Unavailable Mary Telles ASSISTANT WOMEN'S BASKETBALL COACH Unavailable Bam Ritter MD Unavailable Radha Bo LPN Unavailable Unavailable Jose Sanchez MD Unavailable Reason for Visit * Reason Comments Prior Authorization Viokace Encounter Details Date Type Department Care Team Description 12/13/2017 Telephone [facility] Jessica Valera ARNP Prior Authorization Physicians [address] (Viokace ) Ortho and Medical [place] [address] [place] [address] [phone] [place] [address] Social History Tobacco Use Types [...] CDT Contacted patient's insurance at phone number [phone] to check the status of PA on medication Viokace, PA has been approved with authorized dates of 12/11- with no end date given yet. * Telephone Encounter - Senait Jarquin - 12/13/2017 10:42 AM CDT Completed PA for medication Viokace diagnosis chronic pancreatitis through [employer] guillermo code [id number], waiting for approval or denial in this encounter Plan of Treatment Date Type Specialty Care Team Description 12/09/2017 Procedure Pass Oncology 12/09/2017 Procedure Pass Oncology 02/04/2018 Procedure Pass Gastroenterology as of this encounter Visit Diagnoses Not on filein this encounter
--- OUTSIDE RECORDS SUMMARY | 2018-02-13 10:55 | XMS REPORT | Encounter Summary ---
Author Author [facility] Organization [facility] Address Unknown Phone Unavailable Care Team Providers Care Commanding Officer Garage Name Role Phone Michael Sutton MD Unavailable Unavailable Mary Whittington MD PCP Jessica Valera Unavailable Maggie Puente Unavailable Unavailable Mary Telles APRN Unavailable Bam Ritter MD Unavailable Camron Bo LPN Unavailable Unavailable Jose Sanchez MD Unavailable Reason for Visit * Reason Comments Prior Authorization Hydrocortisone rectal suppository 25mg Encounter Details Date Type Department Care Team Description 12/10/2017 Telephone [facility] Jessica Valera ARNP Prior Authorization Physicians - Internal [address] (Hydrocortisone rectal Medicine [place] 1023 suppository 25mg ) [place] [address] [address] [facility] [phone] [place] [address] [phone] Social History Tobacco Use Types Packs/Day Years [...] stated she is seeing her PCP in [place], [place] today and will call back office [...] via fax and it was denied. Per healthcare sales representative alternative medication that is covered [...]
--- OUTSIDE RECORDS SUMMARY | 2018-02-13 10:55 | XMS REPORT | Encounter Summary ---
Author Author [facility] Organization [facility] Address Unknown Phone Unavailable Care Team Providers Care Lcpc Name Role Phone Michael Sutton MD Unavailable Unavailable Mary Whittington MD PCP UtJessica weaver Unavailable Maggie Puente Unavailable Unavailable Mary Telles APRN Unavailable Bam Ritter MD Unavailable Radha Bo LPN Unavailable Unavailable Jose Sanchez MD Unavailable Encounter Details Date Type Department Care Team Description 12/17/2017 Orders Only [facility] Jessica Valera ARNP Diarrhea, unspecified Physicians [address] type Ortho and Medical MS [address] [place] [address] [phone] [place] [address] Social History Tobacco Use Types [...] Gastroenterology as of this encounter Results * LEUKOCYTES, FECAL (12/11/2017) Specimen Stool Narrative Performed At Performing Organization Address City/State[facility] Phone Number MAIN LAB [address] [place] [address] * GIARDIA SCREEN,FECAL (12/11/2017) Narrative Performed At Performing Organization Address City/[facility] Phone Number MAIN LAB [address] [place] [address] * CRYPTOSPORIDUM,FECAL (12/11/2017) Specimen Stool Narrative Performed At Performing Organization Address City/[facility] Phone Number MAIN LAB [address] [place] [address] * CULTURE-FECES W/SENSITIVITY (12/11/2017) Specimen Stool Narrative Performed At Performing Organization Address City/[facility] Phone Number [facility] [address] [place] [address] in this encounter Visit Diagnoses Diagnosis Diarrhea, unspecified type
--- OUTSIDE RECORDS SUMMARY | 2018-02-13 10:55 | XMS REPORT | Encounter Summary ---
Author Author [facility] Organization [facility] Address Unknown Phone Unavailable Care Team Providers Care Screen Printing Loader Unloader Name Role Phone Michael Sutton MD Unavailable Unavailable Mary Whittington MD PCP Jessica Valera Unavailable Maggie Puente Unavailable Unavailable Mary Telles APRN Unavailable Bam Ritter MD Unavailable Radha Bo LPN Unavailable Unavailable Jose Sanchez MD Unavailable Reason for Visit * Reason Comments C Diff Positive C Diff Encounter Details Date Type Department Care Team Description 12/13/2017 Telephone [facility] Jessica Valera ARNP C Diff (Positive C Diff) Physicians [address] [facility] Ortho and Medical MS [address] [place] [address] [address] [facility] [phone] [place] [address] Social History Tobacco Use Types [...] and cleaning with a 1:10 bleach solution, [employer] message sent with additional information. Pt to call PRN and w/ progress report after finishing abx. * Telephone Encounter - Radha Bo LPN - 12/13/2017 11:39 AM CDT Attempted to contact pt. LVM to return call. * Telephone Encounter - Jessica Valera ARNP - 12/13/2017 11:35 AM CDT Due to her significant N/V called Luke/Pharmacist at [facility] to see if Vanco [address] [...]
--- OUTSIDE RECORDS SUMMARY | 2018-02-13 10:55 | XMS REPORT | Encounter Summary ---
Author Author [facility] Organization [facility] Address Unknown Phone Unavailable Care Team Providers Care Professor Of Early Childhood Education Name Role Phone Michael Sutton MD Unavailable Unavailable Mary Whittington MD PCP Jessica Valera Unavailable Maggie Puente Unavailable Unavailable Mary Telles APRN Unavailable Bam Ritter MD Unavailable Radha Bo LPN Unavailable Unavailable Jose Sanchez MD Unavailable Reason for Visit * Reason Comments Appointment Request Encounter Details Date Type Department Care Team Description 01/14/2018 Telephone [facility] Hal Sparks MD Appointment Request Physicians [address] Ortho and Medical [place] [address] [place] [address] [address] [facility] [phone] [place] [address] Social History Tobacco Use Types [...] encounter Miscellaneous Notes * Telephone Encounter - Sharon Velásquez LPN - 01/27/2018 9:06 AM CDT Pt is scheduled for EUS with Dr. Sparks on 01/31/18 1:00. Pt denies being diabetic or taking blood thinning medications. Prep instructions emailed to pt No further f/u needed * Telephone Encounter - Sharon Velásquez LPN - 01/14/2018 1:45 PM CDT Order placed for Upper Eus with Dr. Sparks. Routing to [place] to review and advise in this encounter Plan of Treatment Date Type Specialty Care Team Description 12/09/2017 Procedure Pass Oncology 12/09/2017 Procedure Pass Oncology 02/04/2018 Procedure Pass Gastroenterology as of this encounter Visit Diagnoses Not on filein this encounter
--- OUTSIDE RECORDS SUMMARY | 2018-02-13 10:55 | XMS REPORT | Encounter Summary ---
Author Author [facility] Organization [facility] Address Unknown Phone Unavailable Care Team Providers Care Nurse First Aid Name Role Phone Michael Sutton MD Unavailable Unavailable Mary Whittington MD PCP Jessica Valera Unavailable Maggie Puente Unavailable Unavailable Mary Telles APRN Unavailable Bam Ritter MD Unavailable Radha Bo LPN Unavailable Unavailable Jose Sanchez MD Unavailable Reason for Visit * Reason Comments Other plan of care Encounter Details Date Type Department Care Team Description 12/11/2017 Telephone [facility] Jessica Valera ARNP Other (plan of care) Physicians [address] Ortho and Medical [place] [address] [place] [address] [address] [facility] [phone] [place] [address] Social History Tobacco Use Types [...] pharmacy. * Telephone Encounter - Moraima JessicaKHOA - 12/11/2017 9:05 AM CDT Discussed plan [...]
--- OUTSIDE RECORDS SUMMARY | 2018-02-13 10:56 | XMS REPORT | Encounter Summary ---
Author Author [facility] Organization [facility] Address Unknown Phone Unavailable Care Team Providers Care Inside Phone Sales Name Role Phone Michael Sutton MD Unavailable Unavailable Mary Whittington MD PCP Jessica Valera Unavailable Maggie Puente Unavailable Unavailable Mary Telles APRN Unavailable Bam Ritter MD Unavailable Radha Bo LPN Unavailable Unavailable Jose Sanchez MD Unavailable Encounter Details Date Type Department Care Team Description 12/10/2017 Ancillary Rad Outpatient, Radiologist Orders [address] [place] [address] Social History Tobacco Use Types [...]
--- OUTSIDE RECORDS SUMMARY | 2018-02-13 10:56 | XMS REPORT | Encounter Summary ---
Author Author [facility] Organization [facility] Address Unknown Phone Unavailable Care Team Providers Care Senior Software Qa Analyst Name Role Phone Michael Sutton MD Unavailable Unavailable Mary Whittington MD PCP Jessica Valera Unavailable Maggie Puente Unavailable Unavailable Mary Telles APRN Unavailable Bam Ritter MD Unavailable Radha Bo LPN Unavailable Unavailable Jose Sanchez MD Unavailable Encounter Details Date Type Department Care Team Description 05/06/2017 Procedure Pass [facility] Radiology [address] [place] [address] Social History Tobacco Use Types [...]
--- OUTSIDE RECORDS SUMMARY | 2018-02-13 10:56 | XMS REPORT | Encounter Summary ---
Author Author [facility] Organization [facility] Address Unknown Phone Unavailable Care Team Providers Care Marine Extension Agent Name Role Phone Michael Sutton MD Unavailable Unavailable Mary Whittington MD PCP Jessica Valera Unavailable Maggie Puente Unavailable Unavailable Mary Telles STAFF DESIGN ENGINEER Unavailable Bam Ritter MD Unavailable Radha Bo INTERCELL CONNECTOR PLACER Unavailable Unavailable Jose Sanchez MD Unavailable Reason for Visit * Reason Comments Abdominal pain Constipation Diarrhea Nausea Vomiting Encounter Details Date Type Department Care Team Description 12/09/2017 Office Visit [facility] Jessica Valera ARNP Diarrhea, unspecified Physicians - Internal [address] type (Primary Dx); Medicine [place] [address] Epigastric pain; [place] [address] Chronic pancreatitis, [address] [phone] [place] [address] type (HCC); [phone] Nausea and vomiting, intractability of vomiting not [...] if you have any questions or concerns. [phone]. in this encounter Progress Notes * Jessica [...] has been to cancer Center treatment in [place] regarding a left lung nodule. She is scheduled to go back there again early in December. She also had a repeat CT chest/abdomen CT today which shows a stable left lobe pulmonary or pleural nodule which is apparently unchanged from previous imaging. Dr. Poe/ nephrology who ordered a CT recommended repeat imaging in 6 months. She plans to discuss this recommendation with her [place] provider as well. Since I saw her [...] repeat imaging 6 months. Patient seen at [facility] after 08/2017 OV, has follow up early [...] with her colonoscopy in 2017 done in [place]. Will treat internal hemorrhoids with Anusol HC suppository nightly for at least 7 days and treat external hemorrhoids with Preparation H [id number] 2-3 times a day. She is to [...] review. 5. She will follow-up at the [facility] in [place] early December as planned regarding the left [...] Address City/State/Zipcode Phone Number MAIN LAB [address] [place] [address] * GIARDIA SCREEN,FECAL (12/11/2017) Narrative Performed At Performing Organization Address City/State/Zipcode Phone Number MAIN LAB [address] [place] [address] * CRYPTOSPORIDUM,FECAL (12/11/2017) Specimen Stool Narrative Performed At Performing Organization Address City/State/Zipcode Phone Number MAIN LAB [address] [place] [address] * CULTURE-FECES W/SENSITIVITY (12/11/2017) Specimen Stool Narrative Performed At Performing Organization Address City/State/Zipcode Phone Number MAIN LAB [address] [place] [address] * C DIFFICILE BY PCR (12/11/2017) Narrative Performed At Performing Organization Address [facility] Phone Number OTHER OUTSIDE LAB in this encounter Visit Diagnoses Diagnosis Diarrhea, unspecified type - Primary Epigastric pain Abdominal pain, epigastric Chronic pancreatitis, unspecified pancreatitis type (HCC) Nausea and vomiting, intractability of vomiting not specified, unspecified vomiting type
--- OUTSIDE RECORDS SUMMARY | 2018-02-13 10:56 | XMS REPORT | Encounter Summary ---
Author Author [facility] Organization [facility] Address Unknown Phone Unavailable Care Team Providers Care Slitter Scorer Cut Off Operator Name Role Phone Michael Sutton MD Unavailable Unavailable Mary Whittington MD PCP Jessica Valera Unavailable Maggie Puente Unavailable Unavailable Mary Telles REGISTERED OCCUPATIONAL THERAPIST Unavailable Bam Ritter MD Unavailable Radha Bo BIAS MACHINE OPERATOR HELPER Unavailable Unavailable Jose Sanchez MD Unavailable Reason for Referral * Radiology Services Status Reason Specialty Diagnoses / Referred By Referred To Procedures Contact Contact No Auth Needed Radiology Diagnoses Abel Poe MD [address] Left renal mass [address] [place] [address] [place] [address] [place] [address] [place], [place] Phone: [place] [phone] Phone: * Radiology Services Status Reason Specialty Diagnoses / Referred By Referred To Procedures Contact Contact No Auth Needed Radiology Diagnoses Abel Poe MD [address] Left renal mass [address] [place] [address] rocedures [place] [facility] [place] [address] [address] [place], [place] Phone: [place] [phone] Phone: * Radiology Services Status Reason Specialty Diagnoses / Referred By Referred To Procedures Contact Contact No Auth Needed Radiology Diagnoses Abel Poe MD [address] Left renal mass [address] [place] [address] Denise [place] [address] [place] [address] [place] [address] Phone: * Radiology Services Status Reason Specialty Diagnoses / Referred By Referred To Procedures Contact Contact No Auth Needed Radiology Diagnoses Abel Poe MD [address] Left renal mass [address] [place] [address] [place] [address] [place] [address] [place] [id number] Phone: Reason for Visit * Radiology Services Status Reason Specialty Diagnoses / Referred By Referred To Procedures Contact Contact No Auth Needed Radiology Diagnoses Abel Poe MD [address] Left renal mass [address] [place] [address] [place] [place] [address] [place] [address] [address] [place] Phone: [place]AST [phone] Phone: Encounter Details Date Type Department Care Team Description 12/09/2017 [facility] Abel Poe MD Encounter [facility] Radiology [address] [place] [address] [place] [address] [phone] Social History Tobacco Use Types Packs/Day Years [...] Gastroenterology as of this encounter Results * POC CREATININE, RAD (12/09/2017 9:55 AM) Creatinine, POC 0.8 0.4 - 1.00 MG/DL [facility] Performing Organization Address City/State/Zipcode Phone Number MAIN LAB [address] [place] [address] * CT CHEST W CONTRAST (12/09/2017 9:55 [...] Phone Number [facility] RAD RESULTS * CT ABDOMEN W CONTRAST (12/09/2017 9:55 [...] Address City/State/Zipcode Phone Number [facility] RAD RESULTS in this encounter Visit Diagnoses Diagnosis Left [...]
--- OUTSIDE RECORDS SUMMARY | 2018-02-13 10:56 | XMS REPORT | Encounter Summary ---
Author Author [facility] Organization [facility] Address Unknown Phone Unavailable Care Team Providers Care Excavator Operator Name Role Phone Michael Sutton MD Unavailable Unavailable Mary Whittington MD PCP Jessica Valera Unavailable Mgagie Puente Unavailable Unavailable Mary Telles APRN Unavailable Bam Ritter MD Unavailable Radha Bo LPN Unavailable Unavailable Jose Sanchez MD Unavailable Reason for Visit * Reason Comments Other Encounter Details Date Type Department Care Team Description 12/04/2017 Telephone [facility] Randy Nunez MD Other Physicians - Internal [address] [facility] Medicine [place] [address] [place] [address] [address] [facility] [phone] [place] [address] [phone] Social History Tobacco Use Types Packs/Day Years [...]
--- OUTSIDE RECORDS SUMMARY | 2018-02-13 10:56 | XMS REPORT | Encounter Summary ---
Author Author [facility] Organization [facility] Address Unknown Phone Unavailable Care Team Providers Care Cyber Defense Forensics Analyst Name Role Phone Michael Sutton MD Unavailable Unavailable Mary Whittington MD PCP Jessica Valera Unavailable Maggie Puente Unavailable Unavailable Mary Telles APRN Unavailable Bam Ritter MD Unavailable Radha Bo LPN Unavailable Unavailable Jose Sanchez MD Unavailable Encounter Details Date Type Department Care Team Description 12/10/2017 Ancillary Rad Outpatient, Radiologist Diagnosis unknown Orders [address] [place] [address] Social History Tobacco Use Types [...] Gastroenterology as of this encounter Results * CT ABDOMEN EXTERNAL IMAGING (11/12/2017) Narrative Performed At This order has been auto finalized and does not contain a result. * CT ABD/PEL EXTERNAL IMAGING (11/11/2017) Narrative Performed At This order has been auto finalized and does not contain a result. in this encounter Visit Diagnoses Diagnosis Diagnosis unknown Other unknown and unspecified cause of morbidity or mortality
--- OUTSIDE RECORDS SUMMARY | 2018-02-13 10:56 | XMS REPORT | Encounter Summary ---
Author Author [facility] Organization [facility] Address Unknown Phone Unavailable Care Team Providers Care Cargo Handler Name Role Phone Michael Sutton MD Unavailable Unavailable Mary Whittington MD PCP Jessica Valera Unavailable Maggie Puente Unavailable Unavailable Mary Telles APRN Unavailable Bam Ritter MD Unavailable Radha Bo LPN Unavailable Unavailable Jose Sanchez MD Unavailable Encounter Details Date Type Department Care Team Description 05/06/2017 Procedure Pass [facility] Radiology [address] [place] [address] Social History Tobacco Use Types Packs/Day [...]
--- OUTSIDE RECORDS SUMMARY | 2018-02-13 10:56 | XMS REPORT | Encounter Summary ---
Author Author [facility] Organization [facility] Address Unknown Phone Unavailable Care Team Providers Care Dip Dyer Name Role Phone Michael Sutton MD Unavailable Unavailable Mary Whittington MD PCP Jessica Valera Unavailable Maggie Puente Unavailable Unavailable Mary Telles SOX ANALYST Unavailable Bam Ritter MD Unavailable Radha Bo LABORER STARCH FACTORY Unavailable Unavailable Jose Sanchez MD Unavailable Reason for Referral * Radiology Services Status Reason Specialty Diagnoses / Referred By Referred To Procedures Contact Contact New Request Radiology Diagnoses Abel Poe MD Left renal mass [address] [place] [address] [place] [address] [place], [place] [address] * Radiology Services Status Reason Specialty Diagnoses / Referred By Referred To Procedures Contact Contact New Request Radiology Diagnoses Abel Poe MD Left renal mass [address] [place] [address] [place] [address], [place] [address] Reason for Visit * Reason Comments Heme/Onc Care Encounter Details Date Type Department Care Team Description 12/09/2017 Office Visit [facility] Abel Poe MD Left renal mass ([facility] [address] Dx) [facility] [place] [address] [place] [address] [place], [place] [phone] Social History Tobacco Use Types Packs/Day Years [...] Gastroenterology Name Priority Associated Diagnoses Order Schedule CT CHEST WO/W CONTRAST Routine Left renal mass Expected: 06/09/2018 (Approximate), Expires: 12/09/2018 CT ABDOMEN WO/W CONTRAST Routine Left renal mass Expected: 06/09/2018 (Approximate), Expires: 12/09/2018 as of this encounter Visit Diagnoses Diagnosis Left renal mass - Primary Unspecified disorder of kidney and ureter
--- OUTSIDE RECORDS SUMMARY | 2018-02-13 10:56 | XMS REPORT | Encounter Summary ---
Author Author [facility] Organization [facility] Address Unknown Phone Unavailable Care Team Providers Care Fan Blade Truer Name Role Phone Michael Sutton MD Unavailable Unavailable Mary Whittington MD PCP Jessica Valera Unavailable Maggie Puente Unavailable Unavailable Mary Telles APRN Unavailable Bam Ritter MD Unavailable Radha Bo LPN Unavailable Unavailable Jose Sanchez MD Unavailable Encounter Details Date Type Department Care Team Description 12/10/2017 Ancillary Rad Outpatient, Radiologist Diagnosis unknown Orders [address] [place] [address] Social History Tobacco Use Types [...] Gastroenterology as of this encounter Results * GENERAL RAD CHEST EXTERNAL IMAGING (10/22/2017) Narrative Performed At This order has been auto finalized and does not contain a result. * US ABDOMEN EXTERNAL IMAGING (10/01/2017) Narrative Performed At This order has been auto finalized and does not contain a result. * GENERAL RAD ABDOMEN EXTERNAL IMAGING (09/02/2017 12:15 AM) Narrative Performed At This order has been auto finalized and does not contain a result. * CT ABD/PEL EXTERNAL IMAGING (09/02/2017) Narrative Performed At This order has been auto finalized and does not contain a result. * GENERAL RAD CHEST EXTERNAL IMAGING (07/29/2017) Narrative Performed At This order has been auto finalized and does not contain a result. * CT ABD/PEL EXTERNAL IMAGING (04/17/2017) Narrative Performed At This order has been auto finalized and does not contain a result. in this encounter Visit Diagnoses Diagnosis Diagnosis unknown Other unknown and unspecified cause of morbidity or mortality
--- OUTSIDE RECORDS SUMMARY | 2018-02-13 10:57 | XMS REPORT ---
Author Author SAI CARMEN [facility] Address [address] [place] [address] Care Team Providers Care Make Up Man Name Role Phone CARMEN GIBBS Unavailable PROBLEMS Type Condition ICD9-CM Code ENC62-NG Code Onset Dates Condition Status SNOMED Code Problem Polydipsia R63.1 Active 27735462 Problem Trichotillomania F63.3 Active 43821370 Problem Atelectasis J98.11 Active 76723453 Problem Intestinal malabsorption, unspecified K90.9 Active 36201351 Problem Chronic fatigue R53.82 Active 19655773 Problem Generalized social phobia F40.11 Active 03550094 Problem Restless leg syndrome G25.81 Active 25386670 Problem Moderate episode of recurrent major depressive disorder F33.1 Active 932138273 Problem Chronic post-traumatic stress disorder (PTSD) F43.12 Active 943115789 Problem History of renal cell carcinoma Z85.528 Active 655427549 Problem Chronic tension-type headache, intractable G44.221 Active 811459825 Problem Nodule of left lung R91.1 Active 620721026 Problem Hirsuties L68.0 Active 324312041 Problem FH: polycystic ovary Z84.2 Active 190079007 Problem Morbid (severe) obesity due to excess calories E66.01 Active 024593941 Problem Chronic pancreatitis K86.1 Active 241041162 Problem Hyperlipidemia, mixed E78.2 Active 613865286 Problem Asthma J45.909 Active 600753574 ALLERGIES No Information ENCOUNTERS Encounter Location Date Diagnosis [facility] [address] [facility] [id number], [place] [address] Mar, [facility] [id number] [address] Feb, [facility] [id number] [address] Jan, Acute pain of right knee M25.561 ; Right upper quadrant abdominal pain R10.11 and BMI 45.0-49.9, adult Z68.42 [facility] [id number] [place] [address] 40336- 9967 Jan, [facility] [id number] [place] [address] 72044- 1346 Jan, [facility] [id number] [place] [address] 78284- 9706 Dec, [facility] [id number] [place] [address] 93543- 2242 Dec, Intestinal malabsorption, unspecified K90.9 and Diarrhea, unspecified R19.7 [facility] [id number] [place] [address] 90057- 6888 Dec, [facility] [id number] [place] [address] 19845- 1148 Dec, Strep throat J02.0 ; Intestinal malabsorption, unspecified K90.9 ; Diarrhea, unspecified R19.7 ; Postoperative seroma involving digestive system after non-digestive system procedure K91.873 ; Hyperlipidemia, mixed E78.2 and BMI 45.0-49.9, adult Z68.42 [facility] [id number] [place] [address] 41701- 2438 Dec, [facility] [id number] [place] [address] 61525- 5308 Dec, Nausea R11.0 [facility] [id number] [place] [address] 22922- 7568 Dec, [facility] [id number] [place] [address] 64855 -6219 Dec, Sore throat J02.9 ; Strep throat J02.0 and BMI 45.0-49.9, adult Z68.42 [facility] [id number] [place] [address] 58661- 1282 Dec, [facility] [address] [place] [address] 8195 Dec, [facility] [address], [place] [address] 2082 Dec, [facility] [address] [place] [address] 1130 Dec, [facility] [address], [place] [address] 2495 Dec, [facility] [address] [place] [address]- 8881 Dec, [facility] [address], [place] [address] 0582 Dec, [facility] [address], [place] [address]- 9144 Dec, [facility] [address], [place] [address] 1750 Dec, Clostridium difficile colitis A04.72 ; Intractable vomiting with nausea, unspecified vomiting type R11.2 and BMI 45.0-49.9, adult Z68.42 [facility] [address], [place] [address] 0922 Dec, [facility] [address], [place] [address]- 7684 Nov, [facility] [address], [place] [address]- 8305 Nov, [facility] [address], [place] [address]- 2212 Nov, [facility] [address], [place] [address]- 3864 Nov, [facility] [address], [place] [address] Nov, [place] [address], [place] [address]- 4744 Nov, Hyperlipidemia, mixed E78.2 [facility] [id number] [place] [address] 13933 -6348 Nov, Acute suppurative otitis media of right ear without spontaneous rupture of tympanic membrane, recurrence not specified H66.001 and BMI 45.0-49.9, adult Z68.42 [facility] [id number] [place] [address] 86190- 6398 Nov, Hyperlipidemia, mixed E78.2 [facility] [id number] [place] [address] 42671- 9554 Nov, [facility] [place] [id number] [place] [address] 34213- 1426 Nov, [address] [address]- 2006 Nov, Nodule of left lung R91.1 [place] [id number] [place] [address] 64961- 1854 Nov, Medicare annual wellness visit, initial Z00.00 [...] adult Z68.42 and Encounter for immunization Z23 [place] [id number] [place] [address] 44800- 3363 October, [id number] [place] [address] 16524- 4841 October, Nodule of left lung R91.1 [place] [id number] [place] [address] 99571- 8049 October, Nodule of left lung R91.1 [facility] [place] [id number] [place] [address] 48477- 5945 October, Recurrent major depressive disorder, in partial remission F33.41 ; Restless leg syndrome G25.81 ; Generalized social phobia F40.11 ; Chronic post-traumatic stress disorder (PTSD) F43.12 ; BMI 45.0-49.9, adult Z68.42 and Trichotillomania F63.3 [place] [id number] [place] [address] 93279- 8561 October, [facility] [id number] [place] [address] 62365- 5627 Sep, Chronic fatigue R53.82 and BMI 45.0-49.9, adult Z68.42 [place] [id number] [place] [address] 65945- 6776 Aug, [facility] [id number] [place] [address] 10372- 5476 Jul, Restless leg syndrome G25.81 and B12 deficiency E53.8 [id number] [place] [address] 46181- 2913 Jul, [facility] [id number] [place] [address] 67405- 8203 Jul, [place] [id number] [place] [address] 74828- 5534 Jun, [place] [id number] [place] [address] 22293- 7184 Jun, Fatigue, unspecified type R53.83 ; History of renal cell carcinoma Z85.528 ; Chronic pancreatitis K86.1 ; Restless leg syndrome G25.81 ; Dark urine R82.99 and BMI 45.0-49.9, adult Z68.42 [place] [id number] [place] [address] 05769- 0010 Jun, [facility] [id number], [place] [address]- 7555 Jun, [facility] [address], [place] [address]- 4535 Jun, [facility] [id number], [place] [address]- 8596 Jun, [facility] [address] [address] May, Chronic post-traumatic stress disorder (PTSD) F43.12 ; Moderate episode of recurrent major depressive disorder F33.1 ; Trichotillomania F63.3 and Generalized social phobia F40.11 [facility] [address], [place] [address]- 0225 May, [facility] [address], [place] [address]- 3472 May, Chronic post-traumatic stress disorder (PTSD) F43.12 ; Moderate episode of recurrent major depressive disorder F33.1 ; Trichotillomania F63.3 and Generalized social phobia F40.11 [facility] [id number], [place] [address] 2013 May, Hyperlipidemia, mixed E78.2 ; Morbid (severe) obesity due to excess calories E66.01 ; Chronic post-traumatic stress disorder (PTSD) F43.12 ; Moderate episode of recurrent major depressive disorder F33.1 ; Trichotillomania F63.3 and Generalized social phobia F40.11 [facility] [id number], [place] [address]- 7715 Apr, [facility] [address], [place] [address]- 5750 Apr, Hyperlipidemia, mixed E78.2 ; Morbid (severe) obesity due to excess calories E66.01 ; Chronic post-traumatic stress disorder (PTSD) F43.12 ; Moderate episode of recurrent major depressive disorder F33.1 ; Trichotillomania F63.3 and Generalized social phobia F40.11 [facility] [address] [place] [address] 07215- 2128 Apr, Trichotillomania F63.3 ; Generalized social phobia F40.11 ; Chronic post-traumatic stress disorder (PTSD) F43.12 and Moderate episode of recurrent major depressive disorder F33.1 [place] [id number] [place] [address] 47642- 0833 Apr, [facility] [id number] [place] [address] 16270- 0727 Apr, [place] [id number] [place] [address] 89672- 6387 Mar, Moderate episode of recurrent major depressive disorder F33.1 ; Trichotillomania F63.3 ; Chronic post-traumatic stress disorder (PTSD) F43.12 ; Generalized social phobia F40.11 and Restless leg syndrome G25.81 [place] [id number] [place] [address] 00794- 8787 Mar, [place] [address] 59991- 6913 Mar, [place] [id number] [place] [address] 41677- 5310 Feb, Left kidney mass N28.89 [place] [id number] [place] [address] 54220- 3637 Jan, [place] [id number] [place] [address] 86681- 5796 Dec, Polydipsia R63.1 ; Chronic pancreatitis K86.1 and Fatigue, unspecified type R53.83 [facility] [id number] [place] [address] 47055- 2945 Nov, [place] [id number] [place] [address] 16733- 2620 Nov, [place] [id number] [place] [address] 87389- 0526 Nov, Headache around the eyes R51 [facility] [id number] [place] [address] 40076- 3911 Nov, [facility] [id number] [place] [address] 03823- 8682 October, STD exposure Z20.2 [facility] [id number] [place] [address] 61646- 8580 October, STD exposure Z20.2 [facility] [id number] [place] [address] 432859- 6941 October, Chronic post-traumatic stress disorder (PTSD) F43.12 ; Generalized social phobia F40.11 ; Trichotillomania F63.3 and Restless leg syndrome G25.81 [place] [id number] [place] [address] 29650- 8211 October, [facility] [id number] [place] [address] 53088- 9820 Sep, [facility] [id number] [place] [address] 37012- 9741 Aug, [facility] [id number] [place] [address] 17713- 9730 Aug, [place] [id number] [place] [address] 37552- 1704 Aug, Neck mass R22.1 [place] [id number] [place] [address] 91614- 9014 Aug, Atelectasis J98.11 [place] [id number] [place] [address] 20848- 2977 28 Jul, 2016 Hyperlipidemia, mixed E78.2 ; Atypical pneumonia J18.9 and Neck mass R22.1 [place] [id number] [place] [address] 37884- 4249 15 Jul, 2016 Hemoptysis R04.[address] [place] [address] 48813- 4222 08 Jul, 2016 Acute non-recurrent pansinusitis J01.40 ; Hemoptysis R04.2 ; Polydipsia R63.1 and Malaise R53.81 [facility] [id number] [place] [address] 38343 -4865 May, Other viral agents as the cause of diseases classified elsewhere B97.89 and Acute upper respiratory infection, unspecified J06.9 [facility] [id number] [place] [address] 39665 -0165 Mar, Nausea R11.0 [facility] [id number] [place] [address] 94696 -6318 Dec, Hives L50.9 [place] [id number] [place] [address] 96418- 5263 Dec, [facility] [id number] [place] [address] 30028 -7992 Dec, Cutaneous abscess of limb, unspecified L02.419 ; Cellulitis of unspecified part of limb L03.119 ; Encounter for incision and drainage procedure Z01.89 and Encounter for recheck of abscess following incision and drainage Z09 [facility] [address] [place] [address] 36155 -9389 Dec, Abscess of leg, right L02.415 [place] [id number] [place] [address] 38952- 0694 08 Dec, 2015 Cellulitis of unspecified part of limb L03.119 and Cutaneous abscess of limb, unspecified L02.419 [place] [address] [place] [address] 42211- 6471 Dec, [place] [address] [place] [address] 24944- 8733 Dec, [facility] [address] [place] [address] 14582 -8885 Aug, [facility] [id number] [place] [address] 99590- 2099 Aug, [facility] [id number] [place] [address] 11923 -0958 04 Jul, 2015 Pain in unspecified wrist M25.539 and Back pain, thoracic M54.6 [facility] [id number] [place] [address] 67086 -6238 13 Jun, 2015 Strain of right wrist, initial encounter S66.911A [place] [address] 73228- 1246 Jun, Chronic pancreatitis, unspecified pancreatitis type K86.1 ; Hirsuties L68.0 ; Morbid (severe) obesity due to excess calories E66.01 ; Chronic pancreatitis K86.1 and Asthma J45.909 [place] [id number] [place] [address] 74790- 0636 May, [place] [id number] [place] [address] 79291- 6611 May, Hyperlipidemia, mixed E78.2 and Muscle spasm of back M62.830 [place] [id number] [place] [address] 94843- 3494 Apr, [place] [id number] [place] [address] 24020- 1675 Apr, Torticollis M43.6 [place] [id number] [place] [address] 11837- 7552 Apr, Right-sided thoracic back pain M54.6 [place] [id number] [place] [address] 11615- 8963 Mar, Rash R21 [place] [id number] [place] [address] 52238- 2895 Mar, [place] [address], [place] [address]- 2734 Jan, [facility] [id number] [place] [address] 266734- 3282 Dec, [facility] [id number] 4484 Dec, Urinary frequency 788.41 and Nocturia more than twice per night 788.43 [facility] [id number] [place] [address] 04845- 8516 Nov, [facility] [id number] [place] [address] 011928- 8573 Nov, [facility] [id number] [place] [address] 07908- 1846 Nov, Abdominal pain 789.00 [facility] [id number] [place] [address] 27924- 5290 October, TDAP DX V06.1 [facility] [id number] [place] [address] 83261- 4830 October, [facility] [id number] [place] [address] 156725- 4665 October, Disturbance of skin sensation 782.0 ; Wrist pain, right 719.43 ; Hyperlipidemia 272.4 and Skin lesion of face 709.9 [facility] [address], [place] [address]- 3356 Sep, [facility] [address], [place] [address]- 2580 Sep, [facility] [id number] [place] [address] 580201- 6809 Aug, [facility] [address], [place] [address]- 8675 Aug, [facility] [id number] [place] [address] 88640690- 9890 23 Aug, 2014 [facility] [place] [facility] [address] [id number] [place] [address]- 1044 23 Aug, 2014 [facility] [place] [facility] [address] [id number] [place] [address]- 2354 16 Aug, 2014 [facility] [place] [facility] [address] [id number] [place] [address]- 2240 16 Aug, 2014 [facility] [place] [facility] [address] [id number] [place] [address]- 4864 14 Aug, 2014 [facility] [place] [facility] [address] [id number] [place] [address]- 5017 14 Aug, 2014 [facility] [place] [facility] [address] [id number] [place] [address]- 6270 Aug, [facility] [place] [facility] [address] [id number] [place] [address]- 4128 Aug, [facility] [place] [facility] [address] [id number] [place] [address]- 2172 04 Aug, 2014 [facility] [place] [facility] [address] [id number] [place] [address]- 5442 Aug, [facility] [place] [facility] [address] [id number] [place] [address]- 2444 Aug, [facility] [place] [facility] [address] [id number] [place] [address]- 1885 Aug, [facility] [place] [facility] [address] [id number] [address]- 8229 Jul, 2014 [facility] [place] [facility] [address] [id number] [place] [address]- 7327 Jul, 2014 [facility] [place] [facility] [address] [id number] [place] [address]- 1805 Jul, 2014 [facility] [place] [facility] [address] [id number] [place] [address]- 1247 Jul, [facility] [place] [facility] [address] [id number] [place] [address]- 4015 Jul, [facility] [address] [id number] [place] [address]- 2788 Jul, [facility] [address] [id number] [place] [address]- 9604 Jun, [facility] [address] [id number] [place] [address]- 9010 Jun, [facility] [address] [id number] [place] [address]- 7240 Jun, [facility] [address] [id number] [place] [address]- 6097 Jun, [facility] [address] [id number] [place] [address]- 1566 Jun, [facility] [address] [id number] [place] [address]- 0155 Jun, [facility] [address] [id number] [place] [address]- 7418 Jun, [facility] [address] [id number] [place] [address]- 7774 Jun, [facility] [address] [id number] [place] [address]- 9657 May, [facility] [place] [facility] [address] [id number] [place] [address]- 8935 May, [facility] [address] [id number] [place] [address]- 8969 18 May, 2014 [facility] [place] [facility] [address] [id number] [place] [address]- 4043 18 May, 2014 [facility] [place] [facility] [address] [id number] [place] [address]- 3528 15 May, 2014 [facility] [place] [facility] [address] [id number] [place] [address] 3988 May, [facility] [place] [facility] [address] [id number] [place] [address]- 1591 May, [facility] [place] [facility] [address] [id number] [place] [address]- 0499 May, [facility] [place] [facility] [address] [id number] [place] [address]- 3153 May, [facility] [place] [facility] [address] [id number] [place] [address]- 4371 May, [facility] [place] [facility] [address] [id number] [place] [address]- 3674 May, [facility] [place] [facility] [address] [id number] [place] [address] May, [facility] [place] [facility] [address] [id number] [place] [address] Apr, [facility] [place] [facility] [address] [id number] [place] [address] Apr, [facility] [place] [facility] [address] [id number] [place] [address] Apr, [facility] [place] [facility] [address] [id number] [place] [address] Apr, [facility] [place] [facility] [address] [id number] [place] [address] Apr, [facility] [place] [facility] [address] [id number] [place] [address] Apr, [facility] [place] [facility] [address] [id number] [place] [address] Apr, [facility] [place] [facility] [address] [id number] [place] [address] Apr, [facility] [place] [facility] [address] [id number] [place] [address] Apr, [facility] [place] [facility] [address] [id number] [place] [address] Apr, [facility] [place] [facility] [address] [id number] [place] [address] Apr, [facility] [place] [facility] [address] [id number] [place] [address] Apr, [facility] [place] [facility] [address] [id number] [place] [address] Mar, [facility] [place] [facility] [address] [id number] [place] [address] Mar, [facility] [place] [facility] [address] [id number] [place] [address] Mar, [facility] [place] [facility] [address] [id number] [place] [address] Mar, [facility] [place] [facility] [address] [id number] [place] [address] 10 Feb, 2014 [facility] [place] [facility] [address] [id number] [place] [address] 10 Feb, 2013 [facility] [place] [facility] [address] [id number] [place] [address]- [address] 05 Feb, 2013 [facility] [place] [facility] [address] [id number] [place] [address] 05 Feb, 2013 [facility] [place] [facility] [address] [id number] [place] [address] Feb, 2013 [facility] [place] [facility] [address] [id number] [place] [address] Feb, 2013 [facility] [place] [facility] [address] [id number] [place] [address] Jan, [facility] [place] [facility] [address] [id number] [place] [address] Jan, [facility] [place] [facility] [address] [id number] [place] [address]- [address] Jan, [facility] [place] [facility] [address] [id number] [place] [address] Jan, [facility] [place] [facility] [address] [id number] [place] [address] Jan, [facility] [place] [facility] [address] [id number] [place] [address] Jan, [facility] [place] [facility] [address] [id number] [place] [address] Jan, [facility] [place] [facility] [address] [id number] [place] [address] Jan, [facility] [place] [facility] [address] [id number] [place] [address] Jan, [facility] [place] [facility] [address] [id number] [place] [address] Jan, [facility] [place] [facility] [address] [id number] [place] [address] Jan, [facility] [place] [facility] [address] [id number] [place] [address] Jan, [facility] [place] [facility] [address] [id number] [place] [address] Jan, [facility] [place] [facility] [address] [id number] [place] [address] Jan, [facility] [place] [facility] [address] [id number] [place] [address] Dec, [facility] [place] [facility] [address] [id number] [place] [address] Dec, [facility] [place] [facility] [address] [id number] [place] [address]14 Dec, [facility] [place] [facility] [address] [id number] [place] [address] Dec, [facility] [place] [facility] [address] [id number] [place] [address]- 1092 Nov, [facility] [place] [facility] [address] [id number] [place] [address]- 6893 Nov, [facility] [place] [facility] [address] [id number] [place] [address]- 8494 Nov, [facility] [place] [facility] [address] [id number] [place] [address]- 7772 Nov, [facility] [place] [facility] [address] [id number] [place] [address]- 0946 Nov, [facility] [place] [facility] [address] [id number] [place] [address]- 6586 October, [facility] [place] [facility] [address] [id number] [place] [address]- 2272 October, [facility] [place] [facility] [address] [id number] [place] [address]- 3740 October, [facility] [place] [facility] [address] [id number] [place] [address]- 3638 October, [facility] [place] [facility] [address] [id number] [place] [address]- 9039 October, [facility] [place] [facility] [address] [id number] [place] [address]- 4531 October, [facility] [place] [facility] [address] [id number] [place] [address]- 0069 October, [facility] [place] [facility] [address] [id number] [place] [address]- 2549 October, [facility] [place] [facility] [address] [id number] [place] [address]- 3596 October, [facility] [place] [facility] [address] [id number] [place] [address]- 0762 October, [facility] [place] [facility] [address] [id number] [place] [address]- 4473 October, [facility] [place] [facility] [address] [id number] [place] [address]- 7836 October, [facility] [place] [facility] [address] [id number] [place] [address]- 4956 October, [facility] [place] [facility] [address] [id number] [place] [address]- 0741 October, [facility] [place] [facility] [address] [id number] [place] [address]- 3878 Sep, [facility] [place] [facility] [address] [id number] [place] [address]- 1742 Sep, [facility] [place] [facility] [address] [id number] [place] [address]- 6705 Sep, [facility] [place] [facility] [address] [id number] [place] [address]- 0348 Sep, [facility] [place] [facility] [address] [id number] [place] [address]- 0889 Sep, [facility] [place] [facility] [address] [id number] [place] [address]- 7751 Sep, [facility] [place] [facility] [address] [id number] [place] [address]- 6641 Sep, [facility] [place] [facility] [address] [id number] [place] [address]- 0633 Sep, [facility] [place] [facility] [address] [id number] [place] [address]- 2872 Sep, [facility] [place] [facility] [address] [id number] [place] [address]- 2700 Sep, [facility] [place] [facility] [address] [id number] [place] [address]- 2239 Sep, [facility] [place] [facility] [address] [id number] [place] [address]- 7459 Sep, [facility] [place] [facility] [address] [id number] [place] [address]- 9357 Sep, [facility] [place] [facility] [address] [id number] [place] [address]- 7689 Sep, [facility] [place] [facility] [address] [id number] [place] [address]- 9216 Sep, [facility] [place] [facility] [address] [id number] [place] [address]- 9985 Aug, [facility] [place] [facility] [address] [id number] [place] [address]- 7332 Aug, [facility] [place] [facility] [address] [id number] [place] [address]- 7095 Aug, [facility] [place] [facility] [address] [id number] [place] [address]- 0417 Aug, [facility] [place] [facility] [address] [id number] [place] [address]- 4132 Jul, [facility] [place] [facility] [address] [id number] [place] [address]- 5062 Jul, [facility] [place] [facility] [address] [id number] [place] [address]- 3570 Jul, [facility] [place] [facility] [address] [id number] [place] [address]- 1616 Jul, [facility] [place] [facility] [address] [id number] [place] [address]- 0514 Jun, [facility] [place] [facility] [address] [id number] [place] [address]- 2271 Jun, [facility] [place] [facility] [address] [id number] [place] [address]- 5082 Jun, [facility] [place] [facility] [address] [id number] [place] [address]- 6420 Jun, [facility] [place] [facility] [address] [id number] [place] [address]- 8891 Jun, [facility] [place] [facility] [address] [id number] [place] [address]- 2748 10 Jun, 2013 [facility] [address] [id number] [place] [address] Jun, [facility] [place] [facility] [address] [id number] [place] [address]- 1012 08 Jun, 2013 [facility] [address] [id number] [place] [address]- 7567 20 May, 2013 [facility] [place] [facility] [address] [id number] [place] [address]- 0314 20 May, 2013 [facility] [address] [id number] [place] [address]- 2160 18 May, 2013 [facility] [place] [facility] [address] [id number] [place] [address]- 3802 18 May, 2013 [facility] [address] [id number] [place] [address]- 3254 17 May, 2013 [facility] [address] [facility] [id number] [place] [id number] 17 May, 2013 [facility] [place] [facility] [address] [id number] [place] [address]- 4737 17 May, 2013 [facility] [place] [facility] [address] [id number] [place] [address]- 7263 17 May, 2013 [facility] [place] [facility] [address] [id number] [place] [address]- 2052 16 May, 2013 [facility] [place] [facility] [address] [id number] [place] [address]- 2526 16 May, 2013 [facility] [place] [facility] [address] [id number] [place] [address]- 3289 14 May, 2013 [facility] [place] [facility] [address] [id number] [place] [address]- 6802 14 May, 2013 [facility] [place] [facility] [address] [id number] [place] [address]- 9639 13 May, 2013 [facility] [place] [facility] [address] [id number] [place] [address]- 4448 13 May, 2013 [facility] [address] [id number] [place] [address]- 5382 May, [facility] [place] [facility] [address] [id number] [place] [address]- 2884 May, [facility] [address] [id number] [place] [address]- 6406 May, [facility] [place] [facility] [address] [id number] [place] [address]- 6548 May, [facility] [address] [id number] [place] [address]- 7510 Apr, [facility] [place] [facility] [address] [id number] [place] [address]- 2177 Apr, [facility] [place] [facility] [address] [id number] [place] [address]- 8134 Apr, [facility] [address] [id number] [place] [address]- 0320 Apr, [facility] [place] [facility] [address] [id number] [place] [address]- 4520 Aug, [facility] [address] [id number] [place] [address]- 7833 Aug, [facility] [place] [facility] [address] [id number] [place] [address]- 9289 Aug, [facility] [place] [facility] [address] [id number] [place] [address]- 9941 05 Aug, 2012 [facility] [place] [facility] [address] [id number] [place] [address]- 3721 04 Jul, 2012 [facility] [place] [facility] [address] [id number] [place] [address]- 4562 Jun, [facility] [place] [facility] [address] [id number] [place] [address]- 1673 Jun, [facility] [address] [id number] [place] [address]- 4978 Jun, [facility] [place] [facility] [address] [id number] [place] [address]- 3382 Jun, [facility] [place] [facility] [address] [facility] [id number] [place] [address] May, [facility] [place] [facility] [address] [id number] [place] [address]- 5070 May, [facility] [place] [facility] [address] [id number] [place] [address]- 0064 May, [facility] [place] [facility] [address] [id number] [place] [address]- 3721 May, [facility] [place] [facility] [address] [id number] [place] [address]- 0517 May, [facility] [place] [facility] [address] [id number] [place] [address]- 3114 May, [facility] [place] [facility] [address] [id number] [place] [address]- 7721 May, [facility] [place] [facility] [address] [id number] [place] [address]- 0443 Apr, [facility] [place] [facility] [address] [id number], [place] [address]- 1269 Apr, [facility] [place] [facility] [address] [id number], [place] [address]- 4137 Apr, [facility] [place] [facility] [address] [id number] [place] [address]- 5014 Apr, [facility] [place] [facility] [address] [id number] [place] [address]- 4838 Apr, [facility] [place] [facility] [address] [facility] [id number] [place] [address]- 3625 Apr, [facility] [place] [facility] [address] [id number] [place] [address]- 8894 Apr, [facility] [place] [facility] [address] [id number] [place] [address]- 0535 Mar, 2011 [facility] [place] [facility] [address] [id number] [place] 3515 Mar, [facility] [place] [facility] [address] [id number] [place] [address]- 2009 Mar, [facility] [place] [facility] [address] [id number] [place] [address]- 9092 Mar, [facility] [place] [facility] [address] [id number] [place] 9751 Mar, [facility] [place] [facility] [address] [id number] [place] [address]- 7508 Mar, [facility] [place] [facility] [address] [id number] [place] [address]- 6631 Mar, [facility] [place] [facility] [address] [id number] [place] [address]- 0162 Mar, [facility] [place] [facility] [address] [id number] [place] [address]- 1906 Mar, [facility] [place] [facility] [address] [facility] [id number] [place] [address]- 9371 15 Mar, 2012 [facility] [place] [facility] [address] [id number] [place] [address]- 1920 Mar, [facility] [place] [facility] [address] [id number], [place] [address]- 6205 Mar, [facility] [place] [facility] [address] [id number] [place] [address]- 7650 06 Feb, 2012 [facility] [place] [facility] [address] [id number] [place] [address]- 8048 Jan, [facility] [place] [facility] [address] [id number], [place] [address]- 7234 Jan, [facility] [place] [facility] [address] [id number] [place] [address]- 3189 Jan, [facility] [place] [facility] [address] [id number] [place] [address]- 6030 Jan, [facility] [place] [facility] [address] [id number] [place] [address]- 4353 Jan, [facility] [place] [facility] [address] [id number] [place] [address]- 9329 Dec, [facility] [address] [id number] [place] [address]- 5279 Dec, [facility] [place] [facility] [address] [id number] [place] [address]- 8617 Nov, [facility] [address] [id number] [place] [address]- 3002 Nov, [facility] [address] [id number] [place] [address]- 7271 Nov, [facility] [place] [facility] [address] [id number] [place] [address]- 3031 October, [facility] [address] [id number] [place] [address]- 3902 October, [facility] [place] [facility] [address] [id number] [place] [address]- 9203 October, [facility] [place] [facility] [address] [id number] [place] [address]- 1510 October, [facility] [place] [facility] [address] [id number] [place] [address]- 1026 October, [facility] [place] [facility] [address] [id number] [place] [address]- 4601 October, [facility] [place] [facility] [address] [id number] [place] [address]- 2362 October, [facility] [place] [facility] [address] [id number] [place] [address]- 5569 26 Sep, 2011 [facility] [place] [facility] [address] [id number] [place] [address]- 1033 26 Sep, 2011 [facility] [place] [facility] [address] [id number] [place] [address]- 9159 26 Sep, 2011 [facility] [place] [facility] [address] [id number] [place] [address]- 5415 25 Sep, 2011 [facility] [place] [facility] [address] [id number] [place] [address]- 1837 24 Sep, 2011 [facility] [place] [facility] [address] [id number] [place] [address]- 8096 19 Sep, 2011 [facility] [place] [facility] [address] [id number] [place] [address]- 3284 17 Sep, 2011 [facility] [place] [facility] [address] [id number] [place] [address]- 0875 16 Sep, 2011 [facility] [place] [facility] [address] [id number] [place] [address]- 8232 16 Sep, 2011 [facility] [place] [facility] [address] [id number] [place] [address]- 1276 14 Sep, 2011 [facility] [place] [facility] [address] [id number] [place] [address]- 5065 13 Sep, 2011 [facility] [place] [facility] [address] [id number] [place] [address]- 3973 10 Sep, 2011 [facility] [place] [facility] [address] [id number] [place] [address]- 7392 09 Sep, 2011 [facility] [place] [facility] [address] [id number] [place] [address]- 6564 27 Aug, 2011 [facility] [place] [facility] [address] [id number] [place] [address]- 7345 12 Aug, 2011 [facility] [place] [facility] [address] [id number] [place] [address]- 5996 08 Aug, 2011 [facility] [place] [facility] [address] [id number] [place] [address]- 6884 Aug, [facility] [place] [facility] [address] [id number] [place] [address]- 6206 28 Jul, 2011 [facility] [place] [facility] [address] [id number] [place] [address]- 2006 22 Jul, 2011 [facility] [place] [facility] [address] [id number] [place] [address]- 9396 16 Jul, 2011 [facility] [place] [facility] [address] [id number] [place] [address] 2546 15 Jul, 2011 [facility] [place] [facility] [address] [id number] [place] [address]- 5536 14 Jul, 2011 [facility] [place] [facility] [address] [id number] [place] [address]- 3479 10 Jul, 2011 [facility] [place] [facility] [address] [id number] [place] [address]- 1899 Jun, [facility] [place] [facility] [address] [id number] [place] [address]- 7874 Jun, [facility] [place] [facility] [address] [id number] [place] [address]- 1329 Jun, [facility] [place] [facility] [address] [id number] [place] [address]- 7646 Jun, [facility] [place] [facility] [address] [id number] [place] [address]- 0340 Jun, [facility] [place] [facility] [address] [id number] [place] [address]- 4533 May, [facility] [place] [facility] [address] [id number] [place] [address] 2546 May, [facility] [place] [facility] [address] [id number] [place] [address]- 6630 May, [facility] [place] [facility] [address] [id number] [place] [address]- 0416 14 May, 2011 [facility] [place] [facility] [address] [id number] [place] [address]- 1448 12 May, 2011 [facility] [place] [facility] [address] [id number] [place] [address]- 9794 May, [facility] [place] [facility] [address] [id number] [place] [address]- 1451 May, [facility] [place] [facility] [address] [id number] [place] [address]- 7823 Apr, [facility] [place] [facility] [address] [id number] [place] [address]- 0358 Apr, [facility] [place] [facility] [address] [id number] [place] [address]- 0367 Apr, [facility] [place] [facility] [address] [id number] [place] [address]- 0881 Apr, [facility] [place] [facility] [address] [id number] [place] [address]- 3396 Apr, [facility] [place] [facility] [address] [id number] [place] [address]- 0709 Apr, [facility] [place] [facility] [address] [id number] [place] [address]- 4216 Mar, [facility] [place] [facility] [address] [id number], [place] [address]- 5561 Mar, [facility] [place] [facility] [address] [id number], [place] [address]- 7404 Mar, [facility] [place] [facility] [address] [id number] [place] [address]- 7238 Mar, [facility] [place] [facility] [address] [id number], [place] [address]- 4199 Jan, [facility] [place] [facility] [address] [id number] [place] [address]- 2109 Dec, [facility] [place] [facility] [address] [id number] [place] [address]- 1349 13 Dec, 2010 [facility] [address] [id number] [place] [address]- 7466 11 Oct, 2010 [facility] [place] [facility] [address] [id number] [place] [address] 2546 20 Sep, 2010 [facility] [address] [id number] [place] [address]- 6276 14 Sep, 2010 [facility] [address] [id number] [place] [address] 2546 17 Jul, 2010 [facility] [address] [id number] [place] [address], [place] [address]- 2936 16 Jul, 2010 [facility] [address] [id number] [place] [address]- 5149 31 May, 2010 [facility] [address] [id number] [place] [address] 2540 May, [facility] [address] [id number] [place] [address]- 9828 08 May, 2010 [facility] [address] [id number] [place] [address]- 8934 May, [facility] [address] [id number] [place] [address]- 4278 Apr, [facility] [place] [facility] [address] [id number] [place] [address] 2547 Apr, [facility] [address] [id number] [place] [address] 2544 Apr, [facility] [place] [facility] [address] [id number] [place] [address]- 1334 Apr, [facility] [place] [facility] [address] [id number] [place] [address] 2544 Apr, [facility] [address] [id number] [place] [address]- 3617 Mar, [facility] [place] [facility] [address] [id number] [place] [address]- 4644 14 Mar, 2010 [facility] [place] [facility] [address] [id number] [place] [address]- 4398 13 Mar, 2010 [facility] [place] [facility] [address] [id number] [place] [address]- 0380 12 Mar, 2010 [facility] [place] [facility] [address] [id number] [place] [address]- 9194 20 Jan, 2010 [facility] [place] [facility] [address] [id number] [place] [address]- [id number] 15 Dec, 2009 [facility] [place] [facility] [address] [id number], [place] [address] 10 Sep, 2009 [facility] [place] [facility] [address] [facility] [id number] [place] [id number] 08 May, 2009 [facility] [place] [facility] [address] [id number], [place] [address] 06 May, 2009 [facility] [place] [facility] [address] [id number], [place] [address] May, [facility] [place] [facility] [address] [facility] [id number], [place] [address] 17 Apr, 2009 [facility] [place] [facility] [address] [id number], [place] [address] 17 Apr, 2009 [facility] [place] [facility] [address] [id number], [place] [address] 10 Apr, 2009 [facility] [place] [facility] [address] [id number], [place] [address] 10 Apr, 2009 [facility] [place] [facility] [address] [id number], [place] [address] 09 Apr, 2009 [facility] [place] [facility] [address] [facility] [id number], [place] [address] 15 Mar, 2009 [facility] [place] [facility] [address] [id number], [place] [address] Mar, [facility] [address] [facility] [id number] [place] [address] Jul, IMMUNIZATIONS No Known Immunizations SOCIAL HISTORY [...] Medical History Left kidney clear cell carcinoma Medical History DVT left arm Surgical History arthroscopic knee surgery- Dr Figueroa [...] 08/2017 Surgical History nephrectomy 03/2017 Hospitalization History Cellulitis-[facility] 12/20/15 Hospitalization History [facility]- Abd pain 03/07/2017 Hospitalization History [facility]- Abd pain 03/14/2017 Hospitalization History [facility]- No bowel movement, rash 04/13/2017 Hospitalization History [facility]- Abd pain r/t kidney surgery on 04/17/2017 Hospitalization History [facility]- Abd pain r/t kidney surgery on 04/18/2017 Hospitalization History [facility]- Lower abd pain 04/30/2017 Hospitalization History [facility]- Cannot urinate 05/30/2017 Hospitalization History [facility]- Pancreatitis Sx 06/29/2017 Hospitalization History [facility]- Stomach pain 07/22/2017 Hospitalization History [facility]- Left side pain 08/12/2017 Hospitalization History [facility]- Incision site infection 08/30/2017 Hospitalization History [facility]- Post Op Seroma/Hematoma Left Abdomen. Discharged 09/04/17- Dr Daniel 09/02/2017 Hospitalization History [facility]- Right shoulder and back pain 2017 Hospitalization History [facility]- Shoulder/Back pain 11/11/2017 Hospitalization History [facility]- Right shoulder blade pain 12/04/2017 Hospitalization History [facility]- C-Diff 12/13/2017 Hospitalization History C diff et MRSA 12/27/2017
--- OUTSIDE RECORDS SUMMARY | 2018-02-13 10:58 | XMS REPORT ---
Author Author SAI [facility] Address [address] [place] [address] Care Team Providers Care Form Layer Name Role Phone CARMEN GIBBS Unavailable PROBLEMS Type Condition ICD9-CM Code FMO23-NN Code Onset Dates Condition Status SNOMED Code Problem Polydipsia R63.1 Active 89337459 Problem Trichotillomania F63.3 Active 33018822 Problem Atelectasis J98.11 Active 47949409 Problem Intestinal malabsorption, unspecified K90.9 Active 37044644 Problem Chronic fatigue R53.82 Active 29388928 Problem Generalized social phobia F40.11 Active 87314832 Problem Restless leg syndrome G25.81 Active 04638168 Problem Moderate episode of recurrent major depressive disorder F33.1 Active 255057939 Problem Chronic post-traumatic stress disorder (PTSD) F43.12 Active 007228332 Problem History of renal cell carcinoma Z85.528 Active 198737148 Problem Chronic tension-type headache, intractable G44.221 Active 990502146 Problem Nodule of left lung R91.1 Active 166976534 Problem Hirsuties L68.0 Active 880276343 Problem FH: polycystic ovary Z84.2 Active 538701709 Problem Morbid (severe) obesity due to excess calories E66.01 Active 878564903 Problem Chronic pancreatitis K86.1 Active 343695298 Problem Hyperlipidemia, mixed E78.2 Active 090672557 Problem Asthma J45.909 Active 170114944 ALLERGIES No Information ENCOUNTERS Encounter Location Date Diagnosis [facility] [place] [address] [id number] [address] Mar, [facility] [place] [id number] [address] 5127 Feb, [facility] [place] [id number] [address] 1410 Jan, Acute pain of right knee M25.561 ; Right upper quadrant abdominal pain R10.11 and BMI 45.0-49.9, adult Z68.42 [facility] [place] [id number] [place] [address] 08144- 1666 Jan, [facility] [place] [id number] [place] [address] 01757- 9000 Jan, [facility] [place] [id number] [place] [address] 43268- 7147 Dec, [facility] [place] [id number] [place] [address] 36630- 5542 Dec, Intestinal malabsorption, unspecified K90.9 and Diarrhea, unspecified R19.7 [place] [id number] [place] [address] 42497- 6190 Dec, [facility] [place] [id number] [place] [address] 06456- 3388 Dec, Strep throat J02.0 ; Intestinal malabsorption, unspecified K90.9 ; Diarrhea, unspecified R19.7 ; Postoperative seroma involving digestive system after non-digestive system procedure K91.873 ; Hyperlipidemia, mixed E78.2 and BMI 45.0-49.9, adult Z68.42 [facility] [place] [address] [place] [address] 09783- 7835 Dec, [facility] [place] [id number] [place] [address] 03096- 0642 Dec, Nausea R11.0 [facility] [place] [address] [place] [address] 04147- 4990 Dec, [facility] [id number] [place] [address] 05607 -1944 Dec, Sore throat J02.9 ; Strep throat J02.0 and BMI 45.0-49.9, adult Z68.42 [facility] [place] [id number] [place] [address] 84581- 2836 Dec, [facility] [place] [address] [place] [address] 1310 Dec, [facility] [place] [address] [address] 3005 Dec, [facility] [place] [address] [place] [address]- 3712 Dec, [facility] [place] [address] [address] 1944 Dec, [facility] [place] [address] [place] [address] 5193 Dec, [facility] [place] [address] [address]- 3087 Dec, [facility] [place] [address] [address]- 1065 Dec, [facility] [place] [address] [address] 1577 Dec, Clostridium difficile colitis A04.72 ; Intractable vomiting with nausea, unspecified vomiting type R11.2 and BMI 45.0-49.9, adult Z68.42 [facility] [place] [address] [address]- 1578 Dec, [facility] [place] [address] [address]- 3616 Nov, [facility] [place] [address] [address]- 7455 Nov, [facility] [place] [address] [address]- 7294 Nov, [facility] [place] [address] [address]- 6941 Nov, [facility] [address] [address] Nov, [place] [address] [address]- 9356 Nov, Hyperlipidemia, mixed E78.2 [facility] IN [facility] [id number] [place] [address] 32589 -4960 Nov, Acute suppurative otitis media of right ear without spontaneous rupture of tympanic membrane, recurrence not specified H66.001 and BMI 45.0-49.9, adult Z68.42 [place] [id number] [place] [address] 61240- 3855 Nov, Hyperlipidemia, mixed E78.2 [place] [id number] [place] [address] 30336- 4039 Nov, [place] [id number] [place] [address] 13804- 5370 Nov, [address] [address]84- 9024 Nov, Nodule of left lung R91.1 [id number] [place] [address] 90809- 0305 Nov, Medicare annual wellness visit, initial Z00.00 [...] adult Z68.42 and Encounter for immunization Z23 [id number] [place] [address] 91289- 8958 October, [id number] [place] [address] 41963- 1511 October, Nodule of left lung R91.1 [id number] [place] [address] 92347- 7985 October, Nodule of left lung R91.1 [place] [id number] [place] [address] 52576- 7440 October, Recurrent major depressive disorder, in partial remission F33.41 ; Restless leg syndrome G25.81 ; Generalized social phobia F40.11 ; Chronic post-traumatic stress disorder (PTSD) F43.12 ; BMI 45.0-49.9, adult Z68.42 and Trichotillomania F63.3 [place] [id number] [place] [address] 29802- 0312 October, [place] [id number] [place] [address] 54552- 8919 Sep, Chronic fatigue R53.82 and BMI 45.0-49.9, adult Z68.42 [place] [id number] [place] [address] 47034- 8638 Aug, [place] [id number] [place] [address] 55568- 4434 Jul, Restless leg syndrome G25.81 and B12 deficiency E53.8 [id number] [place] [address] 65567- 2116 Jul, [place] [id number] [place] [address] 48827- 2034 Jul, [place] [id number] [place] [address] 60943- 1026 Jun, [place] [id number] [place] [address] 37876- 3236 Jun, Fatigue, unspecified type R53.83 ; History of renal cell carcinoma Z85.528 ; Chronic pancreatitis K86.1 ; Restless leg syndrome G25.81 ; Dark urine R82.99 and BMI 45.0-49.9, adult Z68.42 [place] [id number] [place] [address] 30919- 4605 Jun, [facility] [place] [id number] [address]- 2948 Jun, [facility] [place] [address] [address]- 7164 Jun, [facility] [place] [id number] [address]- 8794 Jun, [facility] [place] [address] 9078 May, Chronic post-traumatic stress disorder (PTSD) F43.12 ; Moderate episode of recurrent major depressive disorder F33.1 ; Trichotillomania F63.3 and Generalized social phobia F40.11 [facility] [place] [address] [address]- 2403 May, [facility] [place] [address] [address]- 3398 May, Chronic post-traumatic stress disorder (PTSD) F43.12 ; Moderate episode of recurrent major depressive disorder F33.1 ; Trichotillomania F63.3 and Generalized social phobia F40.11 [facility] [place] [id number] [address]- 0478 May, Hyperlipidemia, mixed E78.2 ; Morbid (severe) obesity due to excess calories E66.01 ; Chronic post-traumatic stress disorder (PTSD) F43.12 ; Moderate episode of recurrent major depressive disorder F33.1 ; Trichotillomania F63.3 and Generalized social phobia F40.11 [facility] [place] [id number] [address]- 9516 Apr, [facility] [place] [address] [address]- 9793 Apr, Hyperlipidemia, mixed E78.2 ; Morbid (severe) obesity due to excess calories E66.01 ; Chronic post-traumatic stress disorder (PTSD) F43.12 ; Moderate episode of recurrent major depressive disorder F33.1 ; Trichotillomania F63.3 and Generalized social phobia F40.11 [facility] [place] [address] [place] [address] 83825- 1649 Apr, Trichotillomania F63.3 ; Generalized social phobia F40.11 ; Chronic post-traumatic stress disorder (PTSD) F43.12 and Moderate episode of recurrent major depressive disorder F33.1 [place] [id number] [place] [address] 98712- 1753 Apr, [facility] [place] [id number] [place] [address] 83201- 2195 Apr, [place] [id number] [place] [address] 89527- 0286 Mar, Moderate episode of recurrent major depressive disorder F33.1 ; Trichotillomania F63.3 ; Chronic post-traumatic stress disorder (PTSD) F43.12 ; Generalized social phobia F40.11 and Restless leg syndrome G25.81 [place] [id number] [place] [address] 73100- 5830 Mar, [place] [address] 04204- 5822 Mar, [place] [id number] [place] [address] 16079- 3474 Feb, Left kidney mass N28.89 [place] [id number] [place] [address] 35417- 4599 Jan, [place] [id number] [place] [address] 74438- 8800 Dec, Polydipsia R63.1 ; Chronic pancreatitis K86.1 and Fatigue, unspecified type R53.83 [facility] [place] [id number] [place] [address] 56703- 3094 Nov, [place] [id number] [place] [address] 50573- 4476 Nov, [place] [id number] [place] [address] 22998- 9830 Nov, Headache around the eyes R51 [facility] [place] [id number] [place] [address] 11265- 5350 Nov, [facility] [place] [id number] [place] [address] 98144- 3007 October, STD exposure Z20.2 [facility] [place] [id number] [place] [address] 58192- 4402 October, STD exposure Z20.2 [facility] [place] [id number] [place] [address] 967426- 7492 October, Chronic post-traumatic stress disorder (PTSD) F43.12 ; Generalized social phobia F40.11 ; Trichotillomania F63.3 and Restless leg syndrome G25.81 [place] [id number] [place] [address] 19052- 7024 October, [facility] [place] [id number] [place] [address] 78087- 4855 Sep, [facility] [place] [id number] [place] [address] 04480- 8576 Aug, [facility] [place] [id number] [place] [address] 97388- 0106 Aug, [place] [id number] [place] [address] 26860- 9350 Aug, Neck mass R22.1 [place] [id number] [place] [address] 85501- 1934 Aug, Atelectasis J98.11 [place] [id number] [place] [address] 83854- 3887 28 Jul, 2016 Hyperlipidemia, mixed E78.2 ; Atypical pneumonia J18.9 and Neck mass R22.1 [place] [id number] [place] [address] 94724- 3441 15 Jul, 2016 Hemoptysis R04.[address] [place] [address] 43652- 4338 08 Jul, 2016 Acute non-recurrent pansinusitis J01.40 ; Hemoptysis R04.2 ; Polydipsia R63.1 and Malaise R53.[address] [facility] [id number] [place] [address] 49665 -8836 May, Other viral agents as the cause of diseases classified elsewhere B97.89 and Acute upper respiratory infection, unspecified J06.9 [facility] [id number] [place] [address] 85354 -4937 Mar, Nausea R11.0 [facility] [id number] [place] [address] 20381 -8203 Dec, Hives L50.9 [address] [id number] [place] [address] 96267- 7160 Dec, [facility] [id number] [place] [address] 41873 -8308 Dec, Cutaneous abscess of limb, unspecified L02.419 ; Cellulitis of unspecified part of limb L03.119 ; Encounter for incision and drainage procedure Z01.89 and Encounter for recheck of abscess following incision and drainage Z09 [facility] IN [address] [place] [address] 97145 -4731 Dec, Abscess of leg, right L02.415 [place] [id number] [place] [address] 75759- 3168 08 Dec, 2015 Cellulitis of unspecified part of limb L03.119 and Cutaneous abscess of limb, unspecified L02.419 [place] [address] [place] [address] 15185- 7325 Dec, [place] [address] [place] [address] 51792- 3781 Dec, [facility] [address] [place] [address] 54386 -4450 Aug, [facility] [place] [id number] [place] [address] 87311- 5602 Aug, [facility] [id number] [place] [address] 96806 -1618 04 Jul, 2015 Pain in unspecified wrist M25.539 and Back pain, thoracic M54.[address] [facility] [id number] [place] [address] 96474 -6196 13 Jun, 2015 Strain of right wrist, initial encounter S66.911A [place] [address] 91094- 4171 Jun, Chronic pancreatitis, unspecified pancreatitis type K86.1 ; Hirsuties L68.0 ; Morbid (severe) obesity due to excess calories E66.01 ; Chronic pancreatitis K86.1 and Asthma J45.909 [place] [id number] [place] [address] 26422- 2691 May, [place] [id number] [place] [address] 74451- 6659 May, Hyperlipidemia, mixed E78.2 and Muscle spasm of back M62.830 [place] [id number] [place] [address] 53169- 5474 Apr, [place] [id number] [place] [address] 46943- 9962 Apr, Torticollis M43.6 [place] [id number] [place] [address] 29268- 1127 Apr, Right-sided thoracic back pain M54.6 [place] [id number] [place] [address] 75560- 9520 Mar, Rash R21 [place] [id number] [place] [address] 32125- 7744 Mar, [place] [address] [address]- 3180 Jan, [facility] [place] [id number] [place] [address] 065653- 9640 Dec, [facility] [place] [id number] 4763 Dec, Urinary frequency 788.41 and Nocturia more than twice per night 788.43 [facility] [place] [id number] [place] [address] 03522- 8510 Nov, [facility] [place] [id number] [place] [address] 417742- 7379 Nov, [facility] [place] [id number] [place] [address] 76501- 6002 Nov, Abdominal pain 789.00 [facility] [place] [id number] [place] [address] 31447- 9212 October, TDAP DX V06.1 [facility] [place] [id number] [place] [address] 58102- 2379 October, [facility] [place] [id number] [place] [address] 067941- 0274 October, Disturbance of skin sensation 782.0 ; Wrist pain, right 719.43 ; Hyperlipidemia 272.4 and Skin lesion of face 709.9 [facility] [place] [address] [address]- 3938 Sep, [facility] [place] [address] [address]- 6531 Sep, [facility] [place] [id number] [place] [address] 907223- 6823 Aug, [facility] [place] [address] [address]- 8459 Aug, [facility] [place] [id number] [place] [address] [id number]- 7295 23 Aug, 2014 [facility] [place] [facility] [address] [id number] [place] [address]- 7631 23 Aug, 2014 [facility] [place] [facility] [address] [id number] [place] [address]- 4766 16 Aug, 2014 [facility] [place] [facility] [address] [id number] [place] [address]- 1037 16 Aug, 2014 [facility] [place] [facility] [address] [id number] [place] [address]- 9596 14 Aug, 2014 [facility] [place] [facility] [address] [id number] [place] [address]- 4057 14 Aug, 2014 [facility] [place] [facility] [address] [id number] [place] [address]- 5124 Aug, [facility] [place] [facility] [address] [id number] [place] [address]- 2266 Aug, [facility] [place] [facility] [address] [id number] [place] [address]- 0767 04 Aug, 2014 [facility] [place] [facility] [address] [id number] [place] [address]- 6630 Aug, [facility] [place] [facility] [address] [id number] [place] [address]- 0421 Aug, [facility] [place] [facility] [address] [id number] [place] [address]- 7401 Aug, [facility] [place] [facility] [address] [id number] [address]- 8163 Jul, 2014 [facility] [place] [facility] [address] [id number] [place] [address]- 3447 Jul, 2014 [facility] [place] [facility] [address] [id number] [place] [address]- 6092 Jul, 2014 [facility] [place] [facility] [address] [id number] [place] [address]- 1567 Jul, [facility] [place] [facility] [address] [id number] [place] [address]- 5556 Jul, [facility] [address] [id number] [place] [address]- 0087 Jul, [facility] [address] [id number] [place] [address]- 7715 Jun, [facility] [address] [id number] [place] [address]- [address] Jun, [facility] [address] [id number] [place] [address] Jun, [facility] [address] [id number] [place] [address] Jun, [facility] [address] [id number] [place] [address] Jun, [facility] [address] [id number] [place] [address] Jun, [facility] [address] [id number] [place] [address] Jun, [facility] [address] [id number] [place] [address] Jun, [facility] [address] [id number] [place] [address] May, [facility] [place] [facility] [address] [id number] [place] [address] May, [facility] [address] [id number] [place] [address] 18 May, 2014 [facility] [place] [facility] [address] [id number] [place] [address] 18 May, 2014 [facility] [place] [facility] [address] [id number] [place] [address] 15 May, 2014 [facility] [place] [facility] [address] [id number] [place] [id number] May, [facility] [place] [facility] [address] [id number] [place] [address] May, [facility] [place] [facility] [address] [id number] [place] [address] May, [facility] [place] [facility] [address] [id number] [place] [address] May, [facility] [place] [facility] [address] [id number] [place] [address] May, [facility] [place] [facility] [address] [id number] [place] [address] May, [facility] [place] [facility] [address] [id number] [place] [address] May, [facility] [place] [facility] [address] [id number] [place] [address] Apr, [facility] [place] [facility] [address] [id number] [place] [address] Apr, [facility] [place] [facility] [address] [id number] [place] [address] Apr, [facility] [place] [facility] [address] [id number] [place] [address] Apr, [facility] [place] [facility] [address] [id number] [place] [address] Apr, [facility] [place] [facility] [address] [id number] [place] [address] Apr, [facility] [place] [facility] [address] [id number] [place] [address] Apr, [facility] [place] [facility] [address] [id number] [place] [address] Apr, [facility] [place] [facility] [address] [id number] [place] [address] Apr, [facility] [place] [facility] [address] [id number] [place] [address] Apr, [facility] [place] [facility] [address] [id number] [place] [address] Apr, [facility] [place] [facility] [address] [id number] [place] [address] Apr, [facility] [facility] [address] [id number] [place] [address] Mar, [facility] [place] [facility] [address] [id number] [place] [address] 5976 Mar, [facility] [place] [facility] [address] [id number] [place] [address] 0463 Mar, [facility] [place] [facility] [address] [id number] [place] [address] 0422 Mar, [facility] [place] [facility] [address] [id number] [place] [address] 8128 10 Feb, 2014 [facility] [place] [facility] [address] [id number] [place] [address]- 0775 10 Feb, 2013 [facility] [place] [facility] [address] [id number] [place] [address]- 5139 05 Feb, 2013 [facility] [place] [facility] [address] [id number] [place] [address]- 1085 05 Feb, 2013 [facility] [place] [facility] [address] [id number] [place] [address]- 3045 Feb, 2013 [facility] [place] [facility] [address] [id number] [place] [address]- 9612 Feb, 2013 [facility] [place] [facility] [address] [id number] [place] [address]- 5906 Jan, [facility] [place] [facility] [address] [id number] [place] [address]- 9713 Jan, [facility] [place] [facility] [address] [id number] [place] [address]- 4580 Jan, [facility] [address] [id number] [facility] [place] [address] 6[address] Jan, [facility] [address] [id number] [facility] [place] [address]- 1449 Jan, [facility] [place] [facility] [address] [id number] [place] [address]- 9489 Jan, [facility] [place] [address] [id number] [place] [address]- 8044 Jan, [facility] [place] [facility] [address] [id number] [place] [address]- 2774 Jan, [facility] [place] [facility] [address] [id number] [place] [address]- 8063 Jan, [facility] [facility] [address] [id number] [place] [address]- 8417 Jan, [facility] [place] [facility] [address] [id number] [place] [address]- 0412 Jan, [facility] [place] [facility] [address] [id number] [place] [address]- 0823 Jan, [facility] [facility] [address] [id number] [place] [address]- 9025 Jan, [facility] [facility] [address] [id number] [place] [address]- 9713 Jan, [facility] [place] [facility] [address] [id number] [place] [address]- 7026 Dec, [facility] [place] [facility] [address] [id number] [place] [address]- 9155 Dec, [facility] [place] [facility] [address] [id number] [place] [address]- 0766 Dec, [facility] [address] [id number] [place] Dec, [facility] [place] [facility] [address] [id number] [place] [address]- 1028 Nov, [facility] [place] [facility] [address] [id number] [place] [address]- 4742 Nov, [facility] [place] [facility] [address] [id number] [place] [address]- 1075 Nov, [facility] [facility] [address] [id number] [place] [address]- 6029 Nov, [facility] [address] [id number] [place] [address]- 9248 Nov, [facility] [address] [id number] [place] [address]- 9303 October, [facility] [address] [id number] [place] [address]- 8296 October, [facility] [place] [facility] [address] [id number] [place] [address]- 4860 October, [facility] [address] [id number] [place] [address]- 2997 October, [facility] [address] [id number] [place] [address]- 9790 October, [facility] [place] [facility] [address] [id number] [place] [address]- 5600 October, [facility] [place] [facility] [address] [id number] [place] [address]- 1349 October, [facility] [address] [id number] [place] [address]- 1985 October, [facility] [address] [id number] [place] [address]- 4513 October, [facility] [address] [id number] [place] [address]- 4034 October, [facility] [address] [id number] [place] [address]- 8271 October, [facility] [address] [id number] [place] [address]- 2966 October, [facility] [address] [id number] [place] [address]- 4135 October, [facility] [address] [id number] [place] [address]- 6320 October, [facility] [address] [id number] [place] [address]- 5031 Sep, [facility] [address] [id number] [place] [address]- 4620 Sep, [facility] [address] [id number] [place] [address]- 5611 Sep, [facility] [address] [id number] [place] [address]- 3455 Sep, [facility] [address] [id number] [place] [address]- 2739 Sep, [facility] [address] [id number] [place] [address]- 5640 Sep, [facility] [address] [id number] [place] [address]- 4590 Sep[facility] [address] [id number] [place] [address]- 5286 Sep, [facility] [address] [id number] [place] [address]- 8384 Sep, [facility] [address] [id number] [place] [address]- 2128 Sep, [facility] [address] [id number] [place] [address]- 4547 Sep, [facility] [address] [id number] [place] [address]- 8630 Sep, [facility] [address] [id number] [place] [address]- 1590 Sep, [facility] [address] [id number] [place] [address]- 7023 Sep, [facility] [address] [id number] [place] [address]- 6838 Sep, [facility] [address] [id number] [place] [address]- 0904 Aug, [facility] [address] [id number] [place] [address]- 8725 Aug, [facility] [address] [id number] [place] [address]- 2314 Aug, [facility] [address] [id number] [place] [address]- 1156 Aug, [facility] [address] [id number] [place] [address]- 6333 Jul, [facility] [address] [id number] [place] [address]- 1398 Jul, [facility] [address] [id number] [place] [address]- 3182 Jul, [facility] [address] [id number] [place] [address]- 0326 Jul, [facility] [address] [id number] [place] [address]- 7090 Jun, [facility] [address] [id number] [place] [address]- 8597 Jun, [facility] [address] [id number] [place] [address]- 2354 Jun, [facility] [address] [id number] [place] [address]- 4577 Jun, [facility] [address] [id number] [place] [address]- 5286 Jun, [facility] [address] [id number] [place] [address]- 8153 10 Jun, 2013 [facility] [address] [id number] [place] [address] Jun, [facility] [address] [id number] [place] [address]- 9451 08 Jun, 2013 [facility] [address] [id number] [place] [address]- 3662 20 May, 2013 [facility] [address] [id number] [place] [address]- 9850 20 May, 2013 [facility] [address] [id number] [place] [address]- 1174 18 May, 2013 [facility] [address] [id number] [place] [address]- 9086 18 May, 2013 [facility] [address] [id number] [place] [address]- 6055 17 May, 2013 [facility] [address] [facility] [id number] [place] [address] 17 May, 2013 [facility] [address] [id number] [place] [address]- 5234 17 May, 2013 [facility] [address] [id number] [place] [address]- 4453 17 May, 2013 [facility] [address] [id number] [place] [address]- 1514 16 May, 2013 [facility] [address] [id number] [place] [address]- 1761 16 May, 2013 [facility] [address] [id number] [place] [address]- 9039 14 May, 2013 [facility] [address] [id number] [place] [address]- 3588 14 May, 2013 [facility] [address] [id number] [place] [address]- 2905 13 May, 2013 [facility] [address] [id number] [place] [address]- 4038 13 May, 2013 [facility] [address] [id number] [place] [address]- 5606 May, [facility] [address] [id number] [place] [address]- 6869 May, [facility] [address] [id number] [place] [address]- 0433 May, [facility] [address] [id number] [place] [address]- 4599 May, [facility] [address] [id number] [place] [address]- 0071 Apr, [facility] [address] [id number] [place] [address]- 9036 Apr, [facility] [address] [id number] [place] [address]- 9357 Apr, [facility] [address] [id number] [place] [address]- 6591 Apr, [facility] [address] [id number] [place] [address]- 8334 Aug, [facility] [address] [id number] [place] [address]- 6235 Aug, [facility] [address] [id number] [place] [address]- 1049 Aug, [facility] [address] [id number] [place] [address]- 8285 05 Aug, 2012 [facility] [address] [id number] [place] [address]- 5509 04 Jul, 2012 [facility] [address] [id number] [place] [address]- 4510 Jun, [facility] [address] [id number] [place] [address]- 4076 Jun, [facility] [address] [id number] [place] [address]- 4080 Jun, [facility] [address] [id number] [place] [address]- 5175 Jun, [facility] [address] [facility] [id number] [place] [address] May, [facility] [address] [id number] [place] [address]- 8762 May, [facility] [address] [id number] [place] [address]- 8396 May, [facility] [address] [id number] [place] [address]- 0382 May, [facility] [address] [id number] [place] [address]- 7547 May, [facility] [address] [id number] [place] [address]- 3757 May, [facility] [address] [id number] [place] [address]- 1047 May, [facility] [address] [id number] [place] [address]- 8018 Apr, [facility] [address] [id number] [address]- 5644 Apr, [facility] [address] [id number] [place] [address]- 7228 Apr, [facility] [address] [id number] [place] [address]- 4455 Apr, [facility] [address] [id number] [place] [address]- 5772 Apr, [facility] [address] [facility] [id number] [place] [address]- 1902 Apr, [facility] [address] [id number] [place] [address]- 7667 Apr, [facility] [address] [id number] [place] [address]- 9603 Mar, 2011 [facility] [address] [id number] [place] 9423 Mar, [facility] [address] [id number] [place] [address]- 4493 Mar, [facility] [address] [id number] [place] [address]- 4046 Mar, [facility] [address] [id number] [place] [address]165 Mar, [facility] [address] [id number] [place] [address]- 0835 Mar, [facility] [address] [id number] [place] [address]- 7443 Mar, [facility] [facility] [address] [id number] [place] [address]- 3111 Mar, [facility] [address] [id number] [place] [address]- 6133 Mar, [facility] [address] [facility] [id number] [place] [address]- 1455 15 Mar, 2012 [facility] [address] [id number] [place] [address]- 2197 Mar, [facility] [address] [id number] [place] [address]- 6231 Mar, [facility] [address] [id number] [place] [address]- 0603 06 Feb, 2012 [facility] [facility] [address] [id number] [place] [address]- 4928 Jan, [facility] [facility] [address] [id number] [place] [address]- 5385 Jan, [facility] [place] [facility] [address] [id number] [place] [address]- 6671 Jan, [facility] [place] [facility] [address] [id number] [place] [address]- 6524 Jan, [facility] [address] [id number] [place] [address]- 1061 Jan, [facility] [place] [facility] [address] [id number] [place] [address]- 5817 Dec, [facility] [address] [id number] [place] [address]- 2353 Dec, [facility] [facility] [address] [id number] [place] [address]- 4732 Nov, [facility] [address] [id number] [place] [address]- 9169 Nov, [facility] [address] [id number] [place] [address]- 7529 Nov, [facility] [address] [id number] [place] [address]- 2652 October, [facility] [address] [id number] [place] [address]- 5609 October, [facility] [facility] [address] [id number] [place] [address]- 8534 October, [facility] [facility] [address] [id number] [place] [address]- 2321 October, [facility] [facility] [address] [id number] [place] [address]- 5748 October, [facility] [place] [facility] [address] [id number] [place] [address]- 8372 October, [facility] [facility] [address] [id number] [place] [address]- 2316 October, [facility] [place] [facility] [address] [id number] [place] [address]- 0380 26 Sep, 2011 [facility] [place] [facility] [address] [id number] [place] [address]- 0995 26 Sep, 2011 [facility] [place] [facility] [address] [id number] [place] [address]- 7265 26 Sep, 2011 [facility] [place] [facility] [address] [id number] [place] [address]- 6497 25 Sep, 2011 [facility] [place] [facility] [address] [id number] [place] [address]- 2496 24 Sep, 2011 [facility] [place] [facility] [address] [id number] [place] [address]- 8037 19 Sep, 2011 [facility] [place] [facility] [address] [id number] [place] [address]- 8946 17 Sep, 2011 [facility] [place] [facility] [address] [id number] [place] [address]- 4042 16 Sep, 2011 [facility] [place] [facility] [address] [id number] [place] [address]- 3504 16 Sep, 2011 [facility] [place] [facility] [address] [id number] [place] [address]- 2590 14 Sep, 2011 [facility] [place] [facility] [address] [id number] [place] [address]- 8241 13 Sep, 2011 [facility] [place] [facility] [address] [id number] [place] [address]- 7481 10 Sep, 2011 [facility] [place] [facility] [address] [id number] [place] [address]- 2522 09 Sep, 2011 [facility] [place] [facility] [address] [id number] [place] [address]- 0304 27 Aug, 2011 [facility] [place] [facility] [address] [id number] [place] [address]- 9482 12 Aug, 2011 [facility] [place] [facility] [address] [id number] [place] [address]- 7605 08 Aug, 2011 [facility] [place] [facility] [address] [id number] [place] [address]- 0739 Aug, [facility] [place] [facility] [address] [id number] [place] [address]- 5926 28 Jul, 2011 [facility] [place] [facility] [address] [id number] [place] [address]- 5136 22 Jul, 2011 [facility] [place] [facility] [address] [id number] [place] [address]- 7236 16 Jul, 2011 [facility] [place] [facility] [address] [id number] [place] [address] 2546 15 Jul, 2011 [facility] [place] [facility] [address] [id number] [place] [address]- 7716 14 Jul, 2011 [facility] [place] [facility] [address] [id number] [place] [address]- 6603 10 Jul, 2011 [facility] [place] [facility] [address] [id number] [place] [address]- 9459 Jun, [facility] [facility] [address] [id number] [place] [address]- 3867 Jun, [facility] [place] [facility] [address] [id number] [place] [address]- 8487 Jun, [facility] [facility] [address] [id number] [place] [address]- 7383 Jun, [facility] [facility] [address] [id number] [place] [address]- 9798 Jun, [facility] [place] [facility] [address] [id number] [place] [address]- 0022 May, [facility] [place] [facility] [address] [id number] [place] [address] 2546 May, [facility] [place] [facility] [address] [id number] [place] [address]- 7268 May, [facility] [place] [facility] [address] [id number] [place] [address]- 5988 14 May, 2011 [facility] [place] [facility] [address] [id number] [place] [address] 12 May, 2011 [facility] [place] [facility] [address] [id number] [place] [address] May, [facility] [place] [facility] [address] [id number] [place] [address] May, [facility] [place] [facility] [address] [id number] [place] [address] Apr, [facility] [place] [facility] [address] [id number] [place] [address] Apr, [facility] [place] [facility] [address] [id number] [place] [address] Apr, [facility] [place] [facility] [address] [id number] [place] [address] Apr, [facility] [place] [facility] [address] [id number] [place] [address] Apr, [facility] [place] [facility] [address] [id number] [place] [address] Apr, [facility] [place] [facility] [address] [id number] [place] [address] Mar, [facility] [place] [facility] [address] [id number] [place] [address] Mar, [facility] [place] [facility] [address] [id number] [place] [address] Mar, [facility] [place] [facility] [address] [id number] [place] [address] Mar, [facility] [place] [facility] [address] [id number] [place] [address] Jan, [facility] [place] [facility] [address] [id number] [place] [address]874 Dec, [facility] [place] [facility] [address] [id number] [place] [address]555 13 Dec, 2010 [facility] [address] [id number] [place] [address] 11 Oct, 2010 [facility] [place] [facility] [address] [id number] [place] [address] 2546 20 Sep, 2010 [facility] [address] [id number] [place] [address]26 14 Sep, 2010 [facility] [address] [id number] [place] [address] 2546 17 Jul, 2010 [facility] [address] [id number] [place] [address], [place] [address]- [address]76 16 Jul, 2010 [facility] [address] [id number] [place] [address] 6[address] 31 May, 2010 [facility] [address] [id number] [place] [address] 2543 May, [facility] [address] [id number] [place] [address] 7023 08 May, 2010 [facility] [address] [id number] [place] [address] May, [facility] [address] [id number] [place] [address] Apr, [facility] [place] [facility] [address] [id number] [place] [address] 2547 Apr[facility] [address] [id number] [place] [address] 2543 Apr, [facility] [place] [facility] [address] [id number] [place] [address] 34[address] Apr, [facility] [place] [facility] [address] [id number] [place] [address] 2547 Apr, [facility] [address] [id number] [place] [address] 9272 Mar, [facility] [place] [facility] [address] [id number] [place] [address] 7585 14 Mar, 2010 [facility] [place] [facility] [address] [id number] [place] [address] 13 Mar, 2010 [facility] [place] [facility] [address] [id number] [place] [address] 12 Mar, 2010 [facility] [place] [facility] [address] [id number] [place] [address] 20 Jan, 2010 [facility] [place] [facility] [address] [id number] [place] [address] 1339 15 Dec, 2009 [facility] [place] [facility] [address] [id number] [place] [address] 9[address] 10 Sep, 2009 [facility] [place] [facility] [address] [facility] [id number] [place] [address] 8690 08 May, 2009 [facility] [place] [facility] [address] [id number] [place] [address] 06 May, 2009 [facility] [place] [facility] [address] [id number] [place] [address] May, [facility] [place] [facility] [address] [facility] [id number] [place] [address]1 17 Apr, 2009 [facility] [place] [facility] [address] [id number] [place] [address]73 17 Apr, 2009 [facility] [place] [facility] [address] [id number] [place] [address] 5868 10 Apr, 2009 [facility] [place] [facility] [address] [id number] [place] [address] 1322 10 Apr, 2009 [facility] [place] [facility] [address] [id number] [place] [address]- [address]278 09 Apr, 2009 [facility] [place] [facility] [address] [facility] [id number] [place] [address]- 2016 15 Mar, 2009 [facility] [place] [facility] [address] [id number] [place] [address] Mar, [facility] [address] [facility] [id number] [place] [address] Jul, IMMUNIZATIONS No Known Immunizations SOCIAL HISTORY Never Assessed REASON FOR VISIT question PLAN OF CARE VITAL SIGNS MEDICATIONS Unknown [...] 08/2017 Surgical History nephrectomy 03/2017 Hospitalization History [facility]ulitis-[facility] 12/20/15 Hospitalization History [facility] [place]- Abd pain 03/07/2017 Hospitalization History [facility] [place]- Abd pain 03/14/2017 Hospitalization History [facility] [place]- No bowel movement, rash 04/13/2017 Hospitalization History [facility] [place]- Abd pain r/t kidney surgery on 04/17/2017 Hospitalization History [facility] [place]- Abd pain r/t kidney surgery on 04/18/2017 Hospitalization History [facility] [place]- Lower abd pain 04/30/2017 Hospitalization History [facility] [place]- Cannot urinate 05/30/2017 Hospitalization History [facility] [place]- Pancreatitis Sx 06/29/2017 Hospitalization History [facility] [place]- Stomach pain 07/22/2017 Hospitalization History [facility] [place]- Left side pain 08/12/2017 Hospitalization History [facility] [place]- Incision site infection 08/30/2017 Hospitalization History [facility]- Post Op Seroma/Hematoma Left Abdomen. Discharged 09/04/17- Dr Daniel 09/02/2017 Hospitalization History [facility] [place]- Right shoulder and back pain 2017 Hospitalization History [facility] [place]- Shoulder/Back pain 11/11/2017 Hospitalization History [facility] [place]- Right shoulder blade pain 12/04/2017 Hospitalization History [facility]- C-Diff 12/13/2017 Hospitalization History C diff et MRSA 12/27/2017
--- OUTSIDE RECORDS SUMMARY | 2018-02-13 10:59 | XMS REPORT ---
Author Author SAI CARMEN Organization [facility] [place] Address [address] [place] [address] Care Team Providers Care Ring Packer Name Role Phone CARMEN GIBBS Unavailable PROBLEMS Type Condition ICD9-CM Code PHG33-AM Code Onset Dates Condition Status SNOMED Code Problem Polydipsia R63.1 Active 48006210 Problem Trichotillomania F63.3 Active 47903975 Problem Atelectasis J98.11 Active 96721902 Problem Intestinal malabsorption, unspecified K90.9 Active 60578553 Problem Chronic fatigue R53.82 Active 85224456 Problem Generalized social phobia F40.11 Active 40143060 Problem Restless leg syndrome G25.81 Active 06297353 Problem Moderate episode of recurrent major depressive disorder F33.1 Active 076477628 Problem Chronic post-traumatic stress disorder (PTSD) F43.12 Active 621988698 Problem History of renal cell carcinoma Z85.528 Active 703590765 Problem Chronic tension-type headache, intractable G44.221 Active 223553761 Problem Nodule of left lung R91.1 Active 503844420 Problem Hirsuties L68.0 Active 469846099 Problem FH: polycystic ovary Z84.2 Active 442715279 Problem Morbid (severe) obesity due to excess calories E66.01 Active 394429894 Problem Chronic pancreatitis K86.1 Active 424579862 Problem Hyperlipidemia, mixed E78.2 Active 430864658 Problem Asthma J45.909 Active 926612200 ALLERGIES No Information ENCOUNTERS Encounter Location Date Diagnosis [facility] [place] [address] [facility] [id number] [address] Feb, [facility] [place] [address] [facility] [id number] [address] Jan, Acute pain of right knee M25.561 ; Right upper quadrant abdominal pain R10.11 and BMI 45.0-49.9, adult Z68.42 [facility] [place] [id number] [place] [address] 54104- 2319 Jan, [facility] [place] [id number] [place] [address] 58988- 3124 Jan, [facility] [place] [id number] [place] [address] 03910- 2858 Dec, [facility] [place] [id number] [place] [address] 28302- 7119 Dec, Intestinal malabsorption, unspecified K90.9 and Diarrhea, unspecified R19.7 [facility] [place] [id number] [place] [address] 02087- 3427 Dec, [facility] [place] [id number] [place] [address] 31356- 4508 Dec, Strep throat J02.0 ; Intestinal malabsorption, unspecified K90.9 ; Diarrhea, unspecified R19.7 ; Postoperative seroma involving digestive system after non-digestive system procedure K91.873 ; Hyperlipidemia, mixed E78.2 and BMI 45.0-49.9, adult Z68.42 [facility] [place] [id number] [place] [address] 32780- 8108 Dec, [facility] [place] [id number] [place] [address] 06933- 2945 Dec, Nausea R11.0 [facility] [place] [id number] [place] [address] 83141- 0780 Dec, [facility] [address] [place] [address] 68566 -9203 Dec, Sore throat J02.9 ; Strep throat J02.0 and BMI 45.0-49.9, adult Z68.42 [facility] [place] [id number] [place] [address] 25016- 7508 Dec, [facility] [place] [id number] [place] [address] 11373- 0631 Dec, [facility] [place] [address] [address] 1020 Dec, [facility] [place] [address] [address] 9527 Dec, [facility] [place] [id number] [place] [address] 34663- 5010 Dec, [facility] [place] [id number] [place] [address] 49660- 9314 Dec, [facility] [place] [id number] [place] [address] 39862- 7152 Dec, [facility] [place] [id number] [place] [address] 16868- 6208 Dec, [facility] [place] [address] [place] [address] 72871- 8736 Dec, Clostridium difficile colitis A04.72 ; Intractable vomiting with nausea, unspecified vomiting type R11.2 and BMI 45.0-49.9, adult Z68.42 [facility] [place] [id number] [address] 9542 Dec, [facility] [place] [address] [address] 8095 Nov, [facility] [place] [address] [address] 3156 Nov, [facility] [place] [address] [address] 1872 Nov, [facility] [place] [address] [address]- 1093 Nov, [facility] [address] [address] Nov, [facility] [place] [address] [address]- 6591 Nov, Hyperlipidemia, mixed E78.2 [facility] [address] [address] Nov, Acute suppurative otitis media of right ear without spontaneous rupture of tympanic membrane, recurrence not specified H66.001 and BMI 45.0-49.9, adult Z68.42 [facility] [place] [address] [address]- 4838 Nov, Hyperlipidemia, mixed E78.2 [facility] [place] [address] [address]- 3850 Nov, [place] [id number] [place] [address] 79227- 6050 Nov, [facility] [place] [id number] [place] [address] 40759- 2466 Nov, Nodule of left lung R91.1 [place] [id number] [place] [address] 47071- 9070 Nov, Medicare annual wellness visit, initial Z00.00 [...] adult Z68.42 and Encounter for immunization Z23 [facility] [place] [address] [address]- [address] October, [place] [id number] [place] [address] 34953- 2478 October, Nodule of left lung R91.1 [place] [address] [address]- 8284 October, Nodule of left lung R91.1 [place] [id number] [place] [address] 12161- 1358 October, Recurrent major depressive disorder, in partial remission F33.41 ; Restless leg syndrome G25.81 ; Generalized social phobia F40.11 ; Chronic post-traumatic stress disorder (PTSD) F43.12 ; BMI 45.0-49.9, adult Z68.42 and Trichotillomania F63.3 [place] [address] 48696- 9254 October, [place] [address] 30310- 2923 Sep, Chronic fatigue R53.82 and BMI 45.0-49.9, adult Z68.42 [place] [address] 26986- 9025 Aug, [place] [address] 61060- 1770 Jul, Restless leg syndrome G25.81 and B12 deficiency E53.8 [place] [address] 69061- 5773 Jul, [place] [address] 39077- 1552 Jul, [facility] [id number] [place] [address] 83860- 1119 Jun, [place] [address] 52139- 4595 Jun, Fatigue, unspecified type R53.83 ; History of renal cell carcinoma Z85.528 ; Chronic pancreatitis K86.1 ; Restless leg syndrome G25.81 ; Dark urine R82.99 and BMI 45.0-49.9, adult Z68.42 [facility] [place] [id number] [place] [address] 68363- 1280 Jun, [place] [address] 34329- 4804 Jun, [facility] [place] [id number] [address]- 1762 Jun, [facility] [place] [address] [address]- 5935 Jun, [facility] [place] [id number] [address]- 6796 May, Chronic post-traumatic stress disorder (PTSD) F43.12 ; Moderate episode of recurrent major depressive disorder F33.1 ; Trichotillomania F63.3 and Generalized social phobia F40.11 [place] [address] [address]- 5351 May, [facility] [place] [address] [address]- 5120 May, Chronic post-traumatic stress disorder (PTSD) F43.12 ; Moderate episode of recurrent major depressive disorder F33.1 ; Trichotillomania F63.3 and Generalized social phobia F40.11 [place] [id number] [address]- 0564 May, Hyperlipidemia, mixed E78.2 ; Morbid (severe) obesity due to excess calories E66.01 ; Chronic post-traumatic stress disorder (PTSD) F43.12 ; Moderate episode of recurrent major depressive disorder F33.1 ; Trichotillomania F63.3 and Generalized social phobia F40.11 [facility] [place] [id number] [address]- 1247 Apr, [facility] [place] [id number] [address]- 4946 Apr, Hyperlipidemia, mixed E78.2 ; Morbid (severe) obesity due to excess calories E66.01 ; Chronic post-traumatic stress disorder (PTSD) F43.12 ; Moderate episode of recurrent major depressive disorder F33.1 ; Trichotillomania F63.3 and Generalized social phobia F40.11 [place] [address] [place] [address] 04881- 9808 Apr, Trichotillomania F63.3 ; Generalized social phobia F40.11 ; Chronic post-traumatic stress disorder (PTSD) F43.12 and Moderate episode of recurrent major depressive disorder F33.1 [facility] [place] [id number] [place] [address] 97937- 0236 Apr, [facility] [place] [id number] [place] [address] 60161- 9076 Apr, [facility] [place] [id number] [place] [address] 54471- 0398 Mar, Moderate episode of recurrent major depressive disorder F33.1 ; Trichotillomania F63.3 ; Chronic post-traumatic stress disorder (PTSD) F43.12 ; Generalized social phobia F40.11 and Restless leg syndrome G25.81 [place] [id number] [place] [address] 71208- 9134 Mar, [place] [id number] [place] [address] 85571- 4573 Mar, [place] [id number] [place] [address] 51326- 1286 Feb, Left kidney mass N28.89 [facility] [place] [id number] [place] [address] 80397- 0093 Jan, [facility] [place] [id number] [place] [address] 50790- 8365 Dec, Polydipsia R63.1 ; Chronic pancreatitis K86.1 and Fatigue, unspecified type R53.83 [place] [id number] [place] [address] 81912- 3989 Nov, [facility] [place] [id number] [place] [address] 19347- 0183 Nov, [facility] [place] [id number] [place] [address] 14850- 9547 Nov, Headache around the eyes R51 [facility] [place] [address] [address]- 2479 Nov, [facility] [place] [id number] [place] [address] 66257- 5567 October, STD exposure Z20.2 [facility] [place] [address] [place] [address] 46921- 0458 October, STD exposure Z20.2 [facility] [place] [id number] [place] [address] 68173- 6108 October, Chronic post-traumatic stress disorder (PTSD) F43.12 ; Generalized social phobia F40.11 ; Trichotillomania F63.3 and Restless leg syndrome G25.81 [facility] [place] [id number] [place] [address] 18807- 3438 October, [place] [id number] [place] [address] 44144- 9784 Sep, [facility] [place] [id number] [place] [address] 23602- 7860 Aug, [place] [id number] [place] [address] 25670- 5076 Aug, [place] [id number] [place] [address] 25579- 6549 Aug, Neck mass R22.1 [place] [id number] [place] [address] 58406- 3413 Aug, Atelectasis J98.11 [place] [id number] [place] [address] 99514- 9981 28 Jul, 2016 Hyperlipidemia, mixed E78.2 ; Atypical pneumonia J18.9 and Neck mass R22.1 [facility] [place] [address] [place] [address] 31318- 2087 15 Jul, 2016 Hemoptysis R04.2 [place] [id number] [place] [address] 12600- 3170 08 Jul, 2016 Acute non-recurrent pansinusitis J01.40 ; Hemoptysis R04.2 ; Polydipsia R63.1 and Malaise R53.81 [facility] [place] [id number] [place] [address] 81476 -8698 May, Other viral agents as the cause of diseases classified elsewhere B97.89 and Acute upper respiratory infection, unspecified J06.9 [facility] [address] 7[address]91 -6125 Mar, Nausea R11.0 [facility] [address] 31595 -8005 Dec, Hives L50.9 [place] [id number] [place] [address] 37795- 1207 Dec, [facility] [address] 31375 -7388 Dec, Cutaneous abscess of limb, unspecified L02.419 ; Cellulitis of unspecified part of limb L03.119 ; Encounter for incision and drainage procedure Z01.89 and Encounter for recheck of abscess following incision and drainage Z09 [facility] [place] [id number] [place] [address] 21761 -3018 Dec, Abscess of leg, right L02.415 [place] [id number] [place] [address] 37919- 8483 Dec, Cellulitis of unspecified part of limb L03.119 and Cutaneous abscess of limb, unspecified L02.419 [place] [id number] [place] [address] 60221- 7768 Dec, [place] [id number] [place] [address] 53303- 8693 Dec, [facility] [address] 73809 -8015 Aug, [place] [id number] [place] [address] 10125- 2074 Aug, [facility] [address] 74014 -9704 04 Jul, 2015 Pain in unspecified wrist M25.539 and Back pain, thoracic M54.6 [facility] [id number] [place] [address] 68615 -4088 13 Jun, 2015 Strain of right wrist, initial encounter S66.911A [place] [id number] [place] [address] 53993- 9948 Jun, Chronic pancreatitis, unspecified pancreatitis type K86.1 ; Hirsuties L68.0 ; Morbid (severe) obesity due to excess calories E66.01 ; Chronic pancreatitis K86.1 and Asthma J45.909 [place] [id number] [place] [address] 76233- 1646 May, [place] [address] 90356- 3770 May, Hyperlipidemia, mixed E78.2 and Muscle spasm of back M62.830 [place] [id number] [place] [address] 14206- 8020 Apr, [place] [id number] [place] [address] 88000- 6978 Apr, Torticollis M43.6 [place] [id number] [place] [address] 92685- 7240 Apr, Right-sided thoracic back pain M54.6 [place] [id number] [place] [address] 92149- 3002 Mar, Rash R21 [place] [address] 50578- 7517 Mar, [place] [id number] [place] [address] 15363- 8457 Jan, [place] [address] [address]- 7712 Dec, [facility] [place] [id number] [place] [address] 06084- 1004 Dec, Urinary frequency 788.41 and Nocturia more than twice per night 788.43 [facility] [place] [id number] [place] [address] 56094- 3829 Nov, [facility] [place] [id number] [place] [address] 13823- 3643 Nov, [facility] [place] [id number] [place] [address] 32209- 5165 Nov, Abdominal pain 789.00 [facility] [place] [id number] [place] [address] 27272- 9454 October, TDAP DX V06.1 [facility] [place] [id number] [place] [address] 71899- 6675 October, [facility] [place] [id number] [place] [address] 71872- 8443 October, Disturbance of skin sensation 782.0 ; Wrist pain, right 719.43 ; Hyperlipidemia 272.4 and Skin lesion of face 709.9 [facility] [place] [address] [address]- 8426 Sep, [facility] [place] [id number] [place] [address] 80178- 5883 Sep, [facility] [place] [id number] [place] [address] 53522- 5356 Aug, [facility] [place] [id number] [place] [address] 180248- 8516 Aug, [facility] [place] [address] [address]- 6441 Aug, [facility] [place] [id number] [place] [address] 14869- 9379 23 Aug, 2014 [facility] [place] [facility] [address] [id number] [place] [address]- 6095 16 Aug, 2014 [facility] [place] [facility] [address] [id number] [place] [address]- 4398 16 Aug, 2014 [facility] [place] [facility] [address] [id number] [place] [address]- 6617 14 Aug, 2014 [facility] [place] [facility] [address] [id number] [place] [address]- 4409 14 Aug, 2014 [facility] [place] [facility] [address] [id number] [place] [address]- 1632 11 Aug, 2014 [facility] [place] [facility] [address] [id number] [place] [address]- 4113 11 Aug, 2014 [facility] [place] [facility] [address] [id number] [place] [address]- 5736 04 Aug, 2014 [facility] [place] [facility] [address] [id number] [place] [address]- 8450 04 Aug, 2014 [facility] [place] [facility] [address] [id number] [place] [address]- 1311 Aug, [facility] [place] [facility] [address] [id number] [place] [address]- 5246 Aug, [facility] [place] [facility] [address] [id number] [place] [address]- 4152 Jul, 2014 [facility] [place] [facility] [address] [id number] [place] [address] Jul, 2014 [facility] [place] [facility] [address] [id number] [place] [address] Jul, 2014 [facility] [place] [facility] [address] [id number] [place] [address] Jul, 2014 [facility] [place] [facility] [address] [id number] [place] [address] 04 Jul, 2014 [facility] [place] [facility] [address] [id number] [place] [address] Jul, [facility] [address] [id number] [place] [address] Jun, [facility] [place] [facility] [address] [id number] [place] [address] Jun, [facility] [address] [id number] [place] [address] Jun, [facility] [address] [id number] [place] [address] Jun, [facility] [address] [id number] [place] [address] Jun, [facility] [address] [id number] [place] [address] Jun, [facility] [address] [id number] [place] [address] Jun, [facility] [address] [id number] [place] [address] Jun, [facility] [address] [id number] [place] [address] May[facility] [address] [id number] [place] [address] May, [facility] [place] [facility] [address] [id number] [place] [address] 18 May, 2014 [facility] [place] [facility] [address] [id number] [place] [address] 18 May, 2014 [facility] [place] [facility] [address] [id number] [place] [address] 15 May, 2014 [facility] [place] [facility] [address] [id number] [place] [address] 15 May, 2014 [facility] [place] [facility] [address] [id number] [place] [address] May, [facility] [place] [facility] [address] [id number] [place] [address] May, [facility] [place] [facility] [address] [id number] [place] [address] May, [facility] [place] [facility] [address] [id number] [place] [address] May, [facility] [place] [facility] [address] [id number] [place] [address] May, [facility] [place] [facility] [address] [id number] [place] [address] May, [facility] [place] [facility] [address] [id number] [place] [address] Apr, [facility] [place] [facility] [address] [id number] [place] [address] Apr, [facility] [place] [facility] [address] [id number] [place] [address] Apr, [facility] [place] [facility] [address] [id number] [place] [address] Apr, [facility] [place] [facility] [address] [id number] [place] [address] Apr, [facility] [place] [facility] [address] [id number] [place] [address] Apr, [facility] [place] [facility] [address] [id number] [place] [address] Apr, [facility] [place] [facility] [address] [id number] [place] [address] 1805 Apr, [facility] [place] [facility] [address] [id number] [place] [address] 0648 Apr, [facility] [place] [facility] [address] [id number] [place] [address] 7224 Apr, [facility] [place] [facility] [address] [id number] [place] [address]- 4237 Apr, [facility] [place] [facility] [address] [id number] [place] [address]- 6563 Apr, [facility] [place] [facility] [address] [id number] [place] [address]- 7563 Mar, [facility] [place] [facility] [address] [id number] [place] [address]- 0785 Mar, [facility] [place] [facility] [address] [id number] [place] [address]- 0251 Mar, [facility] [place] [facility] [address] [id number] [place] [address]- 1424 Mar, [facility] [place] [facility] [address] [id number] [place] [address]- 5996 Feb, [facility] [place] [facility] [address] [id number] [place] [address]- 8227 10 Feb, 2014 [facility] [place] [facility] [address] [id number] [place] [address]- 5994 05 Feb, 2013 [facility] [place] [facility] [address] [id number] [place] [address]- 2515 05 Feb, 2013 [facility] [place] [facility] [address] [id number] [place] [address]- 5029 05 Feb, 2013 [facility] [place] [facility] [address] [id number] [place] [address]- 1223 Feb, 2013 [facility] [place] [facility] [address] [id number] [place] [address]- 3420 Jan, [facility] [place] [facility] [address] [id number] [place] [address]- 4781 Jan, [facility] [place] [facility] [address] [id number] [place] [address]- 6029 Jan, [facility] [place] [facility] [address] [id number] [place] [address]- 9279 Jan, [facility] [place] [facility] [address] [id number] [place] [address]- 8059 Jan, [facility] [place] [facility] [address] [id number] [place] [address]- 8164 Jan, [facility] [place] [facility] [address] [id number] [place] [address]- 2465 Jan, [facility] [place] [facility] [address] [id number] [place] [address]- 9214 Jan, [facility] [place] [facility] [address] [id number] [place] [address]- 6249 Jan, [facility] [place] [facility] [address] [id number] [place] [address]- 6821 Jan, [facility] [place] [facility] [address] [id number] [place] [address]- 1535 Jan, [facility] [place] [facility] [address] [id number] [place] [address]- 5115 Jan, [facility] [place] [facility] [address] [id number] [place] [address]- 6623 Jan, [facility] [place] [facility] [address] [id number] [place] [address]- 2531 Jan, [facility] [place] [facility] [address] [id number] [place] [address]- 6111 Dec, [facility] [place] [facility] [address] [id number] [place] [address]- 4728 Dec, [facility] [place] [facility] [address] [id number] [place] [address]- 9883 Dec, [facility] [place] [facility] [address] [id number] [place] [address]- 2511 Dec, [facility] [place] [facility] [address] [id number] [place] [address]- 9356 Nov, [facility] [place] [facility] [address] [id number] [place] [address]- 4575 Nov, [facility] [place] [facility] [address] [id number] [place] [address]- 1569 Nov, [facility] [place] [facility] [address] [id number] [place] [address]- 9951 Nov, [facility] [place] [facility] [address] [id number] [place] [address]- 0666 Nov, [facility] [place] [facility] [address] [id number] [place] [address]- 5098 October, [facility] [place] [facility] [address] [id number] [place] [address]- 8337 October, [facility] [place] [facility] [address] [id number] [place] [address]- 7616 October, [facility] [place] [facility] [address] [id number] [place] [address]- 4880 October, [facility] [place] [facility] [address] [id number] [place] [address]- 8693 October, [facility] [place] [facility] [address] [id number] [place] [address]- 6167 October, [facility] [place] [facility] [address] [id number] [place] [address]- 1296 October, [facility] [place] [facility] [address] [id number] [place] [address]- 5384 October, [facility] [place] [facility] [address] [id number] [place] [address]- 4170 October, [facility] [place] [facility] [address] [id number] [place] [address]- 9973 October, [facility] [place] [facility] [address] [id number] [place] [address]- 7463 October, [facility] [place] [facility] [address] [id number] [place] [address]- 4882 October, [facility] [place] [facility] [address] [id number] [place] [address]- 6250 October, [facility] [place] [facility] [address] [id number] [place] [address]- 3791 October, [facility] [place] [facility] [address] [id number] [place] [address]- 0788 Sep, [facility] [place] [facility] [address] [id number] [place] [address]- 5383 Sep, [facility] [place] [facility] [address] [id number] [place] [address]- 2747 Sep, [facility] [place] [facility] [address] [id number] [place] [address]- 7749 Sep, [facility] [place] [facility] [address] [id number] [place] [address]- 5386 Sep, [facility] [place] [facility] [address] [id number] [place] [address]- 2124 Sep, [facility] [place] [facility] [address] [id number] [place] [address]- 7940 Sep, [facility] [place] [facility] [address] [id number] [place] [address]- 3406 Sep, [facility] [place] [facility] [address] [id number] [place] [address]- 5339 Sep, [facility] [place] [facility] [address] [id number] [place] [address]- 2787 Sep, [facility] [place] [facility] [address] [id number] [place] [address]- 8611 Sep, [facility] [place] [facility] [address] [id number] [place] [address]- 6181 Sep, [facility] [place] [facility] [address] [id number] [place] [address]- 5457 Sep, [facility] [place] [facility] [address] [id number] [place] [address]- 7573 Sep, [facility] [place] [facility] [address] [id number] [place] [address]- 1575 Sep, [facility] [place] [facility] [address] [id number] [place] [address]- 5382 Aug, [facility] [place] [facility] [address] [id number] [place] [address]- 9531 Aug, [facility] [place] [facility] [address] [id number] [place] [address]- 3310 Aug, [facility] [place] [facility] [address] [id number] [place] [address]- 1306 Aug, [facility] [place] [facility] [address] [id number] [place] [address]- 9765 Jul, [facility] [place] [facility] [address] [id number] [place] [address]- 6726 Jul, [facility] [place] [facility] [address] [id number] [place] [address]- 6836 Jul, [facility] [place] [facility] [address] [id number] [place] [address]- 6768 Jul, [facility] [place] [facility] [address] [id number] [place] [address]- 3287 Jun, [facility] [place] [facility] [address] [id number] [place] [address]- 3357 Jun, [facility] [place] [facility] [address] [id number] [place] [address]- 4709 Jun, [facility] [place] [facility] [address] [id number] [place] [address]- 4821 Jun, [facility] [place] [facility] [address] [id number] [place] [address]- 6016 Jun, [facility] [place] [facility] [address] [id number] [place] Jun, [facility] [place] [facility] [address] [id number] [place] [address]- 6690 08 Jun, 2013 [facility] [address] [id number] [place] [address]- 0541 08 Jun, 2013 [facility] [address] [facility] [id number] [place] [address]- 1713 20 May, 2013 [facility] [address] [id number] [place] [address]- 1096 20 May, 2013 [facility] [address] [id number] [place] [address]- 5650 18 May, 2013 [facility] [address] [id number] [place] [address]- 3327 18 May, 2013 [facility] [address] [facility] [id number] [place] [address]- 7464 17 May, 2013 [facility] [id number] [place] [id number] 17 May, 2013 [facility] [id number] [place] [address]- 0985 17 May, 2013 [facility] [id number] [place] [address]- 2827 17 May, 2013 [facility] [id number] [place] [address]- 1318 16 May, 2013 [facility] [address] [id number] [place] [address]- 0150 16 May, 2013 [facility] [address] [id number] [place] [address]- 1750 14 May, 2013 [facility] [address] [id number] [place] [address]- 0603 14 May, 2013 [facility] [address] [facility] [id number] [place]6 13 May, 2013 [facility] [address] [facility] [id number] [place] [address]- 7955 13 May, 2013 [facility] [address] [id number] [place] [address]- 1314 May, [facility] [address] [id number] [place] [address]- 5057 May, [facility] [place] [facility] [address] [id number] [place] [address]- 6267 May, [facility] [address] [id number] [place] [address]- 8031 May, [facility] [place] [facility] [address] [id number] [place] [address]- 3088 Apr, [facility] [place] [facility] [address] [id number] [place] [address]- 5914 Apr, [facility] [place] [facility] [address] [id number] [place] [address]- 7295 Apr, [facility] [place] [facility] [address] [id number] [place] [address]- 0357 Apr, [facility] [address] [id number] [place] [address]- 9388 Aug, [facility] [place] [facility] [address] [id number] [place] [address]- 7626 Aug, [facility] [place] [facility] [address] [id number] [place] [address]- 7833 Aug, [facility] [place] [facility] [address] [id number] [place] [address]- 2398 Aug, [facility] [place] [facility] [address] [id number] [place] [address]- 7206 Jul, [facility] [place] [facility] [address] [id number] [place] [address]- 3975 Jun, [facility] [place] [facility] [address] [id number] [place] [address]- 5879 Jun, [facility] [place] [facility] [address] [id number] [place] [address]- 5760 Jun, [facility] [place] [facility] [address] [id number] [place] [address]- 8314 Jun, [facility] [place] [facility] [address] [id number] [place] [address]- 4678 May, [facility] [place] [facility] [address] [facility] [id number] [place] 2442 May, [facility] [place] [facility] [address] [id number] [place] [address]- 1229 May, [facility] [place] [facility] [address] [id number] [place] [address]- 7967 May, [facility] [place] [facility] [address] [id number] [place] [address]- 4676 May, [facility] [place] [facility] [address] [id number] [place] [address]- 9860 May, [facility] [place] [facility] [address] [id number] [place] [address]- 6362 May, [facility] [place] [facility] [address] [id number] [place] [address]- 8168 Apr, [facility] [place] [facility] [address] [id number] [place] [address]- 1728 Apr, [facility] [place] [facility] [address] [id number] [address]- 4153 Apr, [facility] [place] [facility] [address] [id number], [place] [address]- 9079 Apr, [facility] [place] [facility] [address] [id number] [place] [address]- 4497 Apr, [facility] [place] [facility] [address] [id number] [address]- 2074 Apr, [facility] [place] [facility] [address] [id number], [place] [address]- 8600 Apr, [facility] [place] [facility] [address] [id number] [place] [address]- 0995 Mar, 2011 [facility] [place] [facility] [address] [id number] [place] [address]- 3607 Mar, [facility] [place] [facility] [address] [id number] [place] 1882 Mar, [facility] [place] [facility] [address] [id number] [place] [address]- 0932 Mar, [facility] [place] [facility] [address] [id number] [place] [address]- 3432 Mar, [facility] [place] [facility] [address] [id number] [place] 0425 Mar, [facility] [place] [facility] [address] [id number] [place] [address]- 2517 Mar, [facility] [place] [facility] [address] [id number] [place] 2534 Mar, [facility] [place] [facility] [address] [id number] [place] [address]- 5801 Mar, [facility] [place] [facility] [address] [id number] [place] [address]- 7111 Mar, [facility] [place] [facility] [address] [id number] [place] [address]- 9082 Mar, [facility] [place] [facility] [address] [id number] [place] [address]- 2085 Mar, [facility] [place] [facility] [address] [id number] [place] [address]- 0412 Feb, [facility] [place] [facility] [address] [id number] [place] [address]- 0484 Jan, [facility] [place] [facility] [address] [id number] [place] [address]- 3476 Jan, [facility] [place] [facility] [address] [id number] [place] [address]- 8106 Jan, [facility] [place] [facility] [address] [id number] [place] [address]- 7001 Jan, [facility] [address] [id number] [place] [address]- 6313 Jan, [facility] [place] [facility] [address] [id number] [place] [address]- 6302 Dec, [facility] [place] [facility] [address] [id number] [place] [address]- 4239 Dec, [facility] [address] [id number] [place] [address]- 4908 Nov, [facility] [address] [id number] [place] [address]- 2371 Nov, [facility] [address] [id number] [place] [address]- 9690 Nov, [facility] [address] [id number] [place] [address]- 6592 October, [facility] [address] [id number] [place] [address]- 2360 October, [facility] [address] [id number] [place] [address]- 3216 October, [facility] [address] [id number] [place] [address]- 4191 October, [facility] [place] [facility] [address] [id number] [place] [address]- 2536 October, [facility] [place] [facility] [address] [id number] [place] [address]- 3114 October, [facility] [place] [facility] [address] [id number] [place] [address]- 0140 October, [facility] [place] [facility] [address] [id number] [place] [address]- 7836 Sep, [facility] [place] [facility] [address] [id number] [place] [address]- 5203 26 Sep, 2011 [facility] [place] [facility] [address] [id number] [place] [address]- 0371 26 Sep, 2011 [facility] [place] [facility] [address] [id number] [place] [address]- 8759 25 Sep, 2011 [facility] [place] [facility] [address] [id number] [place] [address]- 5324 24 Sep, 2011 [facility] [place] [facility] [address] [id number] [place] [address]- 2698 19 Sep, 2011 [facility] [place] [facility] [address] [id number] [place] [address]- 3772 17 Sep, 2011 [facility] [place] [facility] [address] [id number] [place] [address]- 3082 16 Sep, 2011 [facility] [place] [facility] [address] [id number] [place] [address]- 9526 16 Sep, 2011 [facility] [place] [facility] [address] [id number] [place] [address]- 2495 14 Sep, 2011 [facility] [place] [facility] [address] [id number] [place] [address]- 0451 13 Sep, 2011 [facility] [place] [facility] [address] [id number] [place] [address]- 2047 10 Sep, 2011 [facility] [place] [facility] [address] [id number] [place] [address]- 0453 09 Sep, 2011 [facility] [place] [facility] [address] [id number] [place] [address]- 2116 27 Aug, 2011 [facility] [place] [facility] [address] [id number] [place] [address]- 2764 12 Aug, 2011 [facility] [place] [facility] [address] [id number] [place] [address]- 2749 08 Aug, 2011 [facility] [place] [facility] [address] [id number] [place] [address]- 8213 06 Aug, 2011 [facility] [place] [facility] [address] [id number] [place] [address]- 2297 28 Jul, 2011 [facility] [address] [id number] [place] [address]- 3176 22 Jul, 2011 [facility] [place] [facility] [address] [id number] [place] [address] 2546 16 Jul, 2011 [facility] [place] [facility] [address] [id number] [place] [address] 2546 15 Jul, 2011 [facility] [place] [facility] [address] [id number] [place] [address] 2544 14 Jul, 2011 [facility] [place] [facility] [address] [id number] [place] [address]- 4806 10 Jul, 2011 [facility] [place] [facility] [address] [id number] [place] [address]- 9764 30 Jun, 2011 [facility] [place] [facility] [address] [id number] [place] [address]- 0953 Jun, [facility] [place] [facility] [address] [id number] [place] [address]- 9685 Jun, [facility] [place] [facility] [address] [id number] [place] [address]- 2744 Jun, [facility] [place] [facility] [address] [id number] [place] [address]- 1532 Jun, [facility] [place] [facility] [address] [id number] [place] [address]- 7481 May, [facility] [place] [facility] [address] [id number] [place] [address] May, [facility] [place] [facility] [address] [id number] [place] [address] May, [facility] [place] [facility] [address] [id number] [place] [address] 14 May, 2011 [facility] [place] [facility] [address] [id number] [place] [address] May, [facility] [place] [facility] [address] [id number] [place] [address] May, [facility] [place] [facility] [address] [id number] [place] [address] May, [facility] [place] [facility] [address] [id number] [place] [address] Apr, [facility] [place] [facility] [address] [id number] [place] [address] Apr, [facility] [place] [facility] [address] [id number] [place] [address] Apr, [facility] [place] [facility] [address] [id number] [place] [address] Apr, [facility] [place] [facility] [address] [id number] [place] [address] Apr, [facility] [place] [facility] [address] [id number] [place] [address] Apr, [facility] [place] [facility] [address] [id number] [place] [address] Mar, [facility] [place] [facility] [address] [id number] [place] [address] Mar, [facility] [place] [facility] [address] [id number] [address] Mar, [facility] [place] [facility] [address] [id number], [place] [address] Mar, [facility] [place] [facility] [address] [id number] [place] [address] Jan, [facility] [place] [facility] [address] [id number] [place] [address] Dec, [facility] [place] [facility] [address] [id number] [place] [address] Dec, [facility] [place] [facility] [address] [id number] [place] [address] 11 Oct, 2010 [facility] [address] [id number] [place] [address] 20 Sep, 2010 [facility] [place] [facility] [address] [id number] [place] [address]46 14 Sep, 2010 [facility] [address] [id number] [place] [address] 17 Jul, 2010 [facility] [place] [facility] [address] [id number] [place] [address] 16 Jul, 2010 [facility] [address] [id number] [place] [address] 31 May, 2010 [facility] [address] [id number] [place] [address] 27 May, 2010 [facility] [address] [id number] [place] [address] 08 May, 2010 [facility] [address] [id number] [place] [address] 06 May, 2010 [facility] [place] [facility] [address] [id number] [place] [address] 22 Apr, 2010 [facility] [address] [id number] [place] [address] Apr, [facility] [place] [facility] [address] [id number] [place] [address]49 18 Apr, 2010 [facility] [place] [facility] [address] [id number] [place] [address] 18 Apr, 2010 [facility] [place] [facility] [address] [id number] [place] [address] Apr, [facility] [place] [facility] [address] [id number] [place] [address] Mar, [facility] [place] [facility] [address] [id number] [place] [address] 14 Mar, 2010 [facility] [place] [facility] [address] [id number] [place] [address]35 13 Mar, 2010 [facility] [place] [facility] [address] [id number] [place] [address]- [address] 12 Mar, 2010 [facility] [place] [facility] [address] [id number], [place] [address] 20 Jan, 2010 [facility] [place] [facility] [address] [id number] [place] [address] 15 Dec, 2009 [facility] [place] [facility] [address] [id number] [place] [address] 10 Sep, 2009 [facility] [place] [facility] [address] [id number], [place] [address] 08 May, 2009 [facility] [place] [facility] [address] [id number], [place] [address] May, [facility] [place] [facility] [address] [id number], [place] [address] 02 May, 2009 [facility] [place] [facility] [address] [facility] [id number], [place] [address] 17 Apr, 2009 [facility] [place] [facility] [address] [facility] [id number], [place] [address] 17 Apr, 2009 [facility] [place] [facility] [address] [facility] [id number], [place] [address] 10 Apr, 2009 [facility] [place] [facility] [address] [id number], [place] [address] 10 Apr, 2009 [facility] [place] [facility] [address] [id number], [place] [address] 09 Apr, 2009 [facility] [place] [facility] [address] [id number], [place] [address] 15 Mar, 2009 [facility] [place] [facility] [address] [facility] [id number], [place] [address] 15 Mar, 2009 [facility] [place] [facility] [address] [id number], [place] [address] Jul, IMMUNIZATIONS No Known Immunizations SOCIAL HISTORY [...] 08/2017 Surgical History nephrectomy 03/2017 Hospitalization History Cellulitis-[facility] 12/20/15 Hospitalization History [facility] [place]- Abd pain 03/07/2017 Hospitalization History [facility] [place]- Abd pain 03/14/2017 Hospitalization History [facility] [place]- No bowel movement, rash 04/13/2017 Hospitalization History [facility] [place]- Abd pain r/t kidney surgery on 04/17/2017 Hospitalization History [facility] [place]- Abd pain r/t kidney surgery on 04/18/2017 Hospitalization History [facility] [place]- Lower abd pain 04/30/2017 Hospitalization History [facility] [place]- Cannot urinate 05/30/2017 Hospitalization History [facility] [place]- Pancreatitis Sx 06/29/2017 Hospitalization History [facility] [place]- Stomach pain 07/22/2017 Hospitalization History [facility] [place]- Left side pain 08/12/2017 Hospitalization History [facility] [place]- Incision site infection 08/30/2017 Hospitalization History [facility]/Hematoma Left Abdomen. Discharged 09/04/17- Dr Daniel 09/02/2017 Hospitalization History [facility] [place]- Right shoulder and back pain 2017 [facility] History [facility] [place]- Shoulder/Back pain 11/11/2017 [facility] [place]- Right shoulder blade pain 12/04/2017 [facility]- C-Diff 12/13/2017 Hospitalization History C diff et MRSA 12/27/2017
--- OUTSIDE RECORDS SUMMARY | 2018-02-13 11:00 | XMS REPORT ---
Author Author CAITLYN DAVIS [facility] IN [facility] Address [address] [place] [address] Care Team Providers Care Operations Officer Trust Department Name Role Phone CAITLYN DAVIS Unavailable PROBLEMS Type Condition ICD9-CM Code [id number] Code Onset Dates Condition Status SNOMED Code Problem Polydipsia R63.1 Active 87728791 Problem Trichotillomania F63.3 Active 79294454 Problem Atelectasis J98.11 Active 33085130 Problem Intestinal malabsorption, unspecified K90.9 Active 45622692 Problem Chronic fatigue R53.82 Active 24018696 Problem Generalized social phobia F40.11 Active 15794009 Problem Restless leg syndrome G25.81 Active 31377169 Problem Moderate episode of recurrent major depressive disorder F33.1 Active 265343002 Problem Chronic post-traumatic stress disorder (PTSD) F43.12 Active 935935683 Problem History of renal cell carcinoma Z85.528 Active 812024058 Problem Chronic tension-type headache, intractable G44.221 Active 492144244 Problem Nodule of left lung R91.1 Active 726604247 Problem Hirsuties L68.0 Active 513510901 Problem FH: polycystic ovary Z84.2 Active 540629705 Problem Morbid (severe) obesity due to excess calories E66.01 Active 596439960 Problem Chronic pancreatitis K86.1 Active 206810433 Problem Hyperlipidemia, mixed E78.2 Active 893647766 Problem Asthma J45.909 Active 291704974 ALLERGIES No Information ENCOUNTERS Encounter Location Date Diagnosis [facility] [address] [facility] [id number] [address] Feb, [facility] [address] [facility] [id number] [address] Jan, Acute pain of right knee M25.561 ; Right upper quadrant abdominal pain R10.11 and BMI 45.0-49.9, adult Z68.42 [facility] [id number] [place] [address]0000[address] 0208 Jan, [facility] [id number] [place] [address] 59948- 9451 Jan, [facility] [id number] [place] [address] 68685- 2224 Dec, [facility] [id number] [place] [address] 75374- 2039 Dec, Intestinal malabsorption, unspecified K90.9 and Diarrhea, unspecified R19.7 [facility] [id number] [place] [address] 77778- 8136 Dec, [facility] [id number] [place] [address] 50490- 7356 Dec, Strep throat J02.0 ; Intestinal malabsorption, unspecified K90.9 ; Diarrhea, unspecified R19.7 ; Postoperative seroma involving digestive system after non-digestive system procedure K91.873 ; Hyperlipidemia, mixed E78.2 and BMI 45.0-49.9, adult Z68.42 [facility] [id number] [place] [address] 49524- 8180 Dec, [facility] [id number] [place] [address] 69107- 9457 Dec, Nausea R11.0 [facility] [id number] [place] [address] 64154- 6952 Dec, [facility] [id number] [place] [address] 81079 -9058 Dec, Sore throat J02.9 ; Strep throat J02.0 and BMI 45.0-49.9, adult Z68.42 [facility] [id number] [place] [address] 82471- 5313 Dec, [facility] [id number] [place] [address] 96422- 5058 Dec, [facility] [address] [address] Dec, [facility] [address] [address] 0016 Dec, [facility] [id number] [place] [address] 14059- 4185 Dec, [facility] [id number] [place] [address] 41499- 7009 Dec, [facility] [id number] [place] [address] 30761- 6223 Dec, [facility] [id number] [place] [address] 39907- 9393 Dec, [facility] [id number] [place] [address] 69999- 9421 Dec, Clostridium difficile colitis A04.72 ; Intractable vomiting with nausea, unspecified vomiting type R11.2 and BMI 45.0-49.9, adult Z68.42 [facility] [id number] [address] 2087 Dec, [facility] [address] [address] 5912 Nov, [facility] [address] [address] 0307 Nov, [facility] [address] [address] 5437 Nov, [facility] [address] [address] 5[address] Nov, [facility] [address] [address] Nov, [facility] [address] [address] 4[address] Nov, Hyperlipidemia, mixed E78.2 [facility] [address] [address] Nov, Acute suppurative otitis media of right ear without spontaneous rupture of tympanic membrane, recurrence not specified H66.001 and BMI 45.0-49.9, adult Z68.42 [facility] [address] [address] 9420 Nov, Hyperlipidemia, mixed E78.2 [facility] [address] [address] 0[address] Nov, [place] [facility] [id number] [place] [address] 57674- 5159 Nov, [facility] [id number] [place] [address] 40452- 6959 Nov, Nodule of left lung R91.1 [facility] [id number] [place] [address] 73762- 6895 Nov, Medicare annual wellness visit, initial Z00.00 [...] adult Z68.42 and Encounter for immunization Z23 [facility] [address] [address] 69[address] October, [facility] [id number] [place] [address] 82395- 6628 October, Nodule of left lung R91.1 [place] [address], [place] [address] 3635 October, Nodule of left lung R91.1 [facility] [id number] [place] [address] 57359- 7792 October, Recurrent major depressive disorder, in partial remission F33.41 ; Restless leg syndrome G25.81 ; Generalized social phobia F40.11 ; Chronic post-traumatic stress disorder (PTSD) F43.12 ; BMI 45.0-49.9, adult Z68.42 and Trichotillomania F63.3 [place] [address] 05429- 8120 October, [place] [address] 76393- 1602 Sep, Chronic fatigue R53.82 and BMI 45.0-49.9, adult Z68.42 [place] [address] 01243- 0562 Aug, [place] [address] 02875- 8135 Jul, Restless leg syndrome G25.81 and B12 deficiency E53.8 [place] [address] 13861- 1361 Jul, [place] [address] 83328- 7361 Jul, [place] [id number] [place] [address] 31278- 2091 Jun, [place] [address] 80944- 2802 Jun, Fatigue, unspecified type R53.83 ; History of renal cell carcinoma Z85.528 ; Chronic pancreatitis K86.1 ; Restless leg syndrome G25.81 ; Dark urine R82.99 and BMI 45.0-49.9, adult Z68.42 [facility] [id number] [place] [address] 67602- 0403 Jun, [place] [address] 49792- 9385 Jun, [facility] [id number] [address] 5405 Jun, [facility] [address], [place] [address] 3654 Jun, [facility] [id number] [address] 7457 May, Chronic post-traumatic stress disorder (PTSD) F43.12 ; Moderate episode of recurrent major depressive disorder F33.1 ; Trichotillomania F63.3 and Generalized social phobia F40.11 [place] [address], [place] [address] 3[address] May, [facility] [address] [address] 7280 May, Chronic post-traumatic stress disorder (PTSD) F43.12 ; Moderate episode of recurrent major depressive disorder F33.1 ; Trichotillomania F63.3 and Generalized social phobia F40.11 [place] [id number] [address] 8805 May, Hyperlipidemia, mixed E78.2 ; Morbid (severe) obesity due to excess calories E66.01 ; Chronic post-traumatic stress disorder (PTSD) F43.12 ; Moderate episode of recurrent major depressive disorder F33.1 ; Trichotillomania F63.3 and Generalized social phobia F40.11 [facility] [id number] [address]- 6381 Apr, [facility] [id number], [place] [address]- 0581 Apr, Hyperlipidemia, mixed E78.2 ; Morbid (severe) obesity due to excess calories E66.01 ; Chronic post-traumatic stress disorder (PTSD) F43.12 ; Moderate episode of recurrent major depressive disorder F33.1 ; Trichotillomania F63.3 and Generalized social phobia F40.11 [place] [id number] [place] [address] 15493- 3254 Apr, Trichotillomania F63.3 ; Generalized social phobia F40.11 ; Chronic post-traumatic stress disorder (PTSD) F43.12 and Moderate episode of recurrent major depressive disorder F33.1 [facility] [id number] [place] [address] 84153- 4521 Apr, [facility] [id number] [place] [address] 67238- 1759 Apr, [facility] [id number] [place] [address] 91810- 0114 Mar, Moderate episode of recurrent major depressive disorder F33.1 ; Trichotillomania F63.3 ; Chronic post-traumatic stress disorder (PTSD) F43.12 ; Generalized social phobia F40.11 and Restless leg syndrome G25.81 [place] [id number] [place] [address] 30277- 2060 Mar, [place] [id number] [place] [address] 01847- 8121 Mar, [place] [id number] [place] [address] 66584- 5346 Feb, Left kidney mass N28.89 [facility] [id number] [place] [address] 62489- 4499 Jan, [facility] [id number] [place] [address] 68912- 4979 Dec, Polydipsia R63.1 ; Chronic pancreatitis K86.1 and Fatigue, unspecified type R53.83 [place] [id number] [place] [address] 80507- 7993 Nov, [facility] [id number] [place] [address] 44132- 4979 Nov, [facility] [id number] [place] [address] 15525- 4230 Nov, Headache around the eyes R51 [facility] [address], [place] [address]- 0560 Nov, [facility] [id number] [place] [address] 99787- 0408 October, STD exposure Z20.2 [facility] [id number] [place] [address] 02542- 3943 October, STD exposure Z20.2 [facility] [id number] [place] [address] 10329- 3722 October, Chronic post-traumatic stress disorder (PTSD) F43.12 ; Generalized social phobia F40.11 ; Trichotillomania F63.3 and Restless leg syndrome G25.81 [facility] [id number] [place] [address] 77595- 0573 October, [place] [id number] [place] [address] 76790- 0225 Sep, [facility] [id number] [place] [address] 00283- 6364 Aug, [place] [id number] [place] [address] 74192- 5266 Aug, [place] [id number] [place] [address] 86470- 9528 Aug, Neck mass R22.1 [place] [id number] [place] [address] 30603- 0336 Aug, Atelectasis J98.11 [place] [id number] [place] [address] 50901- 5651 28 Jul, 2016 Hyperlipidemia, mixed E78.2 ; Atypical pneumonia J18.9 and Neck mass R22.1 [facility] [id number] [place] [address] 60093- 0688 15 Jul, 2016 Hemoptysis R04.2 [place] [id number] [place] [address] 32437- 4033 08 Jul, 2016 Acute non-recurrent pansinusitis J01.40 ; Hemoptysis R04.2 ; Polydipsia R63.1 and Malaise R53.81 [facility] [id number] [place] [address] 02506 -5884 May, Other viral agents as the cause of diseases classified elsewhere B97.89 and Acute upper respiratory infection, unspecified J06.9 [facility] [address] 64387 -2160 Mar, Nausea R11.0 [facility] [address] 64708 -7998 Dec, Hives L50.9 [place] [id number] [place] [address] 02707- 2911 Dec, [facility] [address] 85240 -3798 Dec, Cutaneous abscess of limb, unspecified L02.419 ; Cellulitis of unspecified part of limb L03.119 ; Encounter for incision and drainage procedure Z01.89 and Encounter for recheck of abscess following incision and drainage Z09 [facility] [id number] [place] [address] 53161 -3617 Dec, Abscess of leg, right L02.415 [place] [id number] [place] [address] 53971- 1332 Dec, Cellulitis of unspecified part of limb L03.119 and Cutaneous abscess of limb, unspecified L02.419 [place] [id number] [place] [address] 05637- 0644 Dec, [place] [id number] [place] [address] 09694- 4325 Dec, [facility] IN [address] 20829 -4359 Aug, [place] [id number] [place] [address] 69514- 2893 Aug, [facility] [address] 33359 -5085 04 Jul, 2015 Pain in unspecified wrist M25.539 and Back pain, thoracic M54.6 [facility] [id number] [place] [address] 69921 -6927 13 Jun, 2015 Strain of right wrist, initial encounter S66.911A [place] [id number] [place] [address] 10835- 7439 Jun, Chronic pancreatitis, unspecified pancreatitis type K86.1 ; Hirsuties L68.0 ; Morbid (severe) obesity due to excess calories E66.01 ; Chronic pancreatitis K86.1 and Asthma J45.909 [place] [id number] [place] [address] 80062- 5088 May, [place] [address] 98779- 0506 May, Hyperlipidemia, mixed E78.2 and Muscle spasm of back M62.830 [place] [id number] [place] [address] 01523- 1163 Apr, [place] [id number] [place] [address] 27877- 9431 Apr, Torticollis M43.6 [place] [id number] [place] [address] 92394- 0997 Apr, Right-sided thoracic back pain M54.6 [place] [id number] [place] [address] 27719- 2328 Mar, Rash R21 [place] [address] 67269- 8006 Mar, [place] [id number] [place] [address] 36640- 1245 Jan, [place] [address], [place] [address]- 4072 Dec, [facility] [id number] [place] [address] 36347- 3988 Dec, Urinary frequency 788.41 and Nocturia more than twice per night 788.43 [facility] [id number] [place] [address] 34413- 8459 Nov, [facility] [id number] [place] [address] 67731- 7950 Nov, [facility] [id number] [place] [address] 97654- 6092 Nov, Abdominal pain 789.00 [facility] [id number] [place] [address] 93797- 7378 October, TDAP DX V06.1 [facility] [id number] [place] [address] 95408- 7357 October, [facility] [id number] [place] [address] 26195- 6077 October, Disturbance of skin sensation 782.0 ; Wrist pain, right 719.43 ; Hyperlipidemia 272.4 and Skin lesion of face 709.9 [facility] [address], [place] [address]- 3515 Sep, [facility] [id number] [place] [address] 03959- 5191 Sep, [facility] [id number] [place] [address] 10957- 0298 Aug, [facility] [id number] [place] [address] 096401- 6705 Aug, [facility] [address], [place] [address]- 1874 Aug, [facility] [id number] [place] [address] 71971- 9579 23 Aug, 2014 [facility] [place] [facility] [address] [id number] [place] [address]- 0024 16 Aug, 2014 [facility] [place] [facility] [address] [id number] [place] [address]- 2218 16 Aug, 2014 [facility] [place] [facility] [address] [id number] [place] [address]- 1070 14 Aug, 2014 [facility] [place] [facility] [address] [id number] [place] [address]- 1514 14 Aug, 2014 [facility] [place] [facility] [address] [id number] [place] [address]- 5611 11 Aug, 2014 [facility] [place] [facility] [address] [id number] [place] [address]- 8850 11 Aug, 2014 [facility] [place] [facility] [address] [id number] [place] [address]- 3746 04 Aug, 2014 [facility] [place] [facility] [address] [id number] [place] [address]- 1074 04 Aug, 2014 [facility] [place] [facility] [address] [id number] [place] [address]- 2037 Aug, [facility] [place] [facility] [address] [id number] [place] [address]- 3081 Aug, [facility] [place] [facility] [address] [id number] [place] [address]- 0051 Jul, 2014 [facility] [place] [facility] [address] [id number] [place] [address]- 5065 Jul, 2014 [facility] [place] [facility] [address] [id number] [place] [address]- 9817 Jul, 2014 [facility] [place] [facility] [address] [id number] [place] [address]- 4871 Jul, 2014 [facility] [place] [facility] [address] [id number] [place] [address]- 2111 04 Jul, 2014 [facility] [place] [facility] [address] [id number] [place] [address]- 6340 Jul, [facility] [address] [id number] [place] [address]- 2035 Jun, [facility] [place] [facility] [address] [id number] [place] [address]- 4302 Jun, [facility] [address] [id number] [place] [address]- 5287 Jun, [facility] [address] [id number] [place] [address]- 3631 Jun, [facility] [address] [id number] [place] [address]- 6517 Jun, [facility] [address] [id number] [place] [address]- 6535 Jun, [facility] [address] [id number] [place] [address]- 5940 Jun, [facility] [address] [id number] [place] [address]- 3568 Jun, [facility] [address] [id number] [place] [address]- 3592 May, [facility] [address] [id number] [place] [address]- 7644 May, [facility] [place] [facility] [address] [id number] [place] [address]- 6264 18 May, 2014 [facility] [place] [facility] [address] [id number] [place] [address]- 9493 18 May, 2014 [facility] [place] [facility] [address] [id number] [place] [address]- 5487 15 May, 2014 [facility] [place] [facility] [address] [id number] [place] [address]- 1028 15 May, 2014 [facility] [place] [facility] [address] [id number] [place] [address]- 3835 May, [facility] [place] [facility] [address] [id number] [place] [address]- 2730 May, [facility] [place] [facility] [address] [id number] [place] [address] May, [facility] [place] [facility] [address] [id number] [place] [address] May, [facility] [place] [facility] [address] [id number] [place] [address] May, [facility] [place] [facility] [address] [id number] [place] [address] May, [facility] [place] [facility] [address] [id number] [place] [address] Apr, [facility] [place] [facility] [address] [id number] [place] [address] Apr, [facility] [place] [facility] [address] [id number] [place] [address] Apr, [facility] [place] [facility] [address] [id number] [place] [address] Apr, [facility] [place] [facility] [address] [id number] [place] [address] Apr, [facility] [place] [facility] [address] [id number] [place] [address] Apr, [facility] [place] [facility] [address] [id number] [place] [address] Apr, [facility] [place] [facility] [address] [id number] [place] [address] Apr, [facility] [place] [facility] [address] [id number] [place] [address]- [address] Apr, [facility] [place] [facility] [address] [id number] [place] [address] Apr, [facility] [place] [facility] [address] [id number] [place] [address] Apr, [facility] [place] [facility] [address] [id number] [place] [address]- [address] Apr, [facility] [place] [facility] [address] [id number] [place] [address] Mar, [facility] [place] [facility] [address] [id number] [place] [address] Mar, [facility] [place] [facility] [address] [id number] [place] [address] Mar, [facility] [place] [facility] [address] [id number] [place] [address] Mar, [facility] [place] [facility] [address] [id number] [place] [address] Feb, [facility] [place] [facility] [address] [id number] [place] [address] 10 Feb, 2014 [facility] [place] [facility] [address] [id number] [place] [address]- [address] 05 Feb, 2013 [facility] [place] [facility] [address] [id number] [place] [address]- [address] 05 Feb, 2013 [facility] [place] [facility] [address] [id number] [place] [address]- [address] 05 Feb, 2013 [facility] [place] [facility] [address] [id number] [place] [address] Feb, 2013 [facility] [place] [facility] [address] [id number] [place] [address] Jan, [facility] [place] [facility] [address] [id number] [place] [address]- [address] Jan, [facility] [place] [facility] [address] [id number] [place] [address] Jan, [facility] [place] [facility] [address] [id number] [place] [address] Jan, [facility] [place] [facility] [address] [id number] [place] [address] Jan, [facility] [place] [facility] [address] [id number] [place] [address] Jan, [facility] [place] [facility] [address] [id number] [place] [address] 9198 Jan, [facility] [place] [facility] [address] [id number] [place] [address] 47[address] Jan, [facility] [place] [facility] [address] [id number] [place] [address] 98[address] Jan, [facility] [place] [facility] [address] [id number] [place] [address]- 6438 Jan, [facility] [place] [facility] [address] [id number] [place] [address]- 1823 Jan, [facility] [place] [facility] [address] [id number] [place] [address]- 8522 Jan, [facility] [place] [facility] [address] [id number] [place] [address]- 3690 Jan, [facility] [place] [facility] [address] [id number] [place] [address] 3387 Jan, [facility] [place] [facility] [address] [id number] [place] [address]- 2732 Dec, [facility] [place] [facility] [address] [id number] [place] [address]- 9454 Dec, [facility] [place] [facility] [address] [id number] [place] [address]- 4440 Dec, [facility] [place] [facility] [address] [id number] [place] [address]- 2964 Dec, [facility] [place] [facility] [address] [id number] [place] [address]- 6740 Nov, [facility] [place] [facility] [address] [id number] [place] [address]- 2594 Nov, [facility] [place] [facility] [address] [id number] [place] [address]- 7913 Nov, [facility] [place] [facility] [address] [id number] [place] [address]- 5300 Nov, [facility] [place] [facility] [address] [id number] [place] [address]- 6909 Nov, [facility] [place] [facility] [address] [id number] [place] [address]- 2233 October, [facility] [place] [facility] [address] [id number] [place] [address]- 6946 October, [facility] [place] [facility] [address] [id number] [place] [address]- 3343 October, [facility] [place] [facility] [address] [id number] [place] [address]- 0487 October, [facility] [place] [facility] [address] [id number] [place] [address]- 5907 October, [facility] [place] [facility] [address] [id number] [place] [address]- 0695 October, [facility] [place] [facility] [address] [id number] [place] [address]- 1513 October, [facility] [place] [facility] [address] [id number] [place] [address]- 2102 October, [facility] [place] [facility] [address] [id number] [place] [address]- 8894 October, [facility] [place] [facility] [address] [id number] [place] [address]- 8845 October, [facility] [place] [facility] [address] [id number] [place] [address]- 2497 October, [facility] [place] [facility] [address] [id number] [place] [address]- 8070 October, [facility] [place] [facility] [address] [id number] [place] [address] 1974 October, [facility] [place] [facility] [address] [id number] [place] [address]- 9412 October, [facility] [place] [facility] [address] [id number] [place] [address]- 7464 Sep, [facility] [place] [facility] [address] [id number] [place] [address]- 4926 Sep, [facility] [place] [facility] [address] [id number] [place] [address]- 0819 Sep, [facility] [place] [facility] [address] [id number] [place] [address]- 8636 Sep, [facility] [place] [facility] [address] [id number] [place] [address]- 9056 Sep, [facility] [place] [facility] [address] [id number] [place] [address]- 6693 Sep, [facility] [place] [facility] [address] [id number] [place] [address]- 4168 Sep, [facility] [place] [facility] [address] [id number] [place] [address]- 3909 Sep, [facility] [place] [facility] [address] [id number] [place] [address]- 8923 Sep, [facility] [place] [facility] [address] [id number] [place] [address]- 1467 Sep, [facility] [place] [facility] [address] [id number] [place] [address]- 0442 Sep, [facility] [place] [facility] [address] [id number] [place] [address]- 3368 Sep, [facility] [place] [facility] [address] [id number] [place] [address]- 6824 Sep, [facility] [place] [facility] [address] [id number] [place] [address]- 1489 Sep, [facility] [place] [facility] [address] [id number] [place] [address]- 7381 Sep, [facility] [place] [facility] [address] [id number] [place] [address]- 8870 Aug, [facility] [place] [facility] [address] [id number] [place] [address]- 1842 Aug, [facility] [place] [facility] [address] [id number] [place] [address]- 5347 Aug, [facility] [place] [facility] [address] [id number] [place] [address]- 3301 Aug, [facility] [place] [facility] [address] [id number] [place] [address]- 7671 Jul, [facility] [place] [facility] [address] [id number] [place] [address]- 8094 Jul, [facility] [place] [facility] [address] [id number] [place] [address]- 8164 Jul, [facility] [place] [facility] [address] [id number] [place] [address]- 0845 Jul, [facility] [place] [facility] [address] [id number] [place] [address]- 5329 Jun, [facility] [place] [facility] [address] [id number] [place] [address]- 1780 Jun, [facility] [place] [facility] [address] [id number] [place] [address]- 2728 Jun, [facility] [place] [facility] [address] [id number] [place] [address]- 2891 Jun, [facility] [place] [facility] [address] [id number] [place] [address]- 0430 Jun, [facility] [place] [facility] [address] [id number] [place] [address] Jun, [facility] [place] [facility] [address] [id number] [place] [address]- 7015 08 Jun, 2013 [facility] [address] [id number] [place] [address]- 8491 08 Jun, 2013 [facility] [address] [facility] [id number] [place] [address]- 1614 20 May, 2013 [facility] [address] [id number] [place] [address]- 9298 20 May, 2013 [facility] [address] [id number] [place] [address]- 6106 18 May, 2013 [facility] [address] [id number] [place] [address]- 6427 18 May, 2013 [facility] [address] [facility] [id number] [place] [address]- 8252 17 May, 2013 [facility] [id number] [id number] 17 May, 2013 [facility] [id number] [place] [address]- 7535 17 May, 2013 [facility] [id number] [place] [address]- 2236 17 May, 2013 [facility] [id number] [place] [address]- 7220 16 May, 2013 [facility] [address] [id number] [place] [address]- 6997 16 May, 2013 [facility] [address] [id number] [place] [address]- 5616 14 May, 2013 [facility] [address] [id number] [place] [address]- 1310 14 May, 2013 [facility] [address] [facility] [id number] [place] [address]476 13 May, 2013 [facility] [address] [facility] [id number] [place] [address]- 9166 13 May, 2013 [facility] [address] [id number] [place] [address]- 8388 May, [facility] [address] [id number] [place] [address]- 7329 May, [facility] [place] [facility] [address] [id number] [place] [address]- 4683 May, [facility] [address] [id number] [place] [address]- 8704 May, [facility] [place] [facility] [address] [id number] [place] [address]- 0721 Apr, [facility] [place] [facility] [address] [id number] [place] [address]- 7986 Apr, [facility] [place] [facility] [address] [id number] [place] [address]- 9609 Apr, [facility] [place] [facility] [address] [id number] [place] [address]- 2668 Apr, [facility] [address] [id number] [place] [address]- 9330 Aug, [facility] [place] [facility] [address] [id number] [place] [address]- 8309 Aug, [facility] [place] [facility] [address] [id number] [place] [address]- 7860 Aug, [facility] [place] [facility] [address] [id number] [place] [address]- 9802 Aug, [facility] [place] [facility] [address] [id number] [place] [address]- 4509 Jul, [facility] [place] [facility] [address] [id number] [place] [address]- 0249 Jun, [facility] [place] [facility] [address] [id number] [place] [address]- 9360 Jun, [facility] [place] [facility] [address] [id number] [place] [address]- 0410 Jun, [facility] [place] [facility] [address] [id number] [place] [address]- 0753 Jun, [facility] [place] [facility] [address] [id number] [place] [address]- 0790 May, [facility] [place] [facility] [address] [facility] [id number] [place] [address]29 May, [facility] [place] [facility] [address] [id number] [place] [address]- 6196 May, [facility] [place] [facility] [address] [id number] [place] [address]- 4295 May, [facility] [place] [facility] [address] [id number] [place] [address]- 0642 May, [facility] [place] [facility] [address] [id number] [place] [address]- 9432 May, [facility] [place] [facility] [address] [id number] [place] [address]- 7241 May, [facility] [place] [facility] [address] [id number] [place] [address]- 8489 Apr, [facility] [place] [facility] [address] [id number] [place] [address]- 1165 Apr, [facility] [place] [facility] [address] [id number], [place] [address]- 3134 Apr, [facility] [place] [facility] [address] [id number][place] [address]- 2274 Apr, [facility] [place] [facility] [address] [id number] [place] [address]- 7231 Apr, [facility] [place] [facility] [address] [id number][place] [address]- 7289 Apr, [facility] [place] [facility] [address] [id number][place] [address]- 8739 Apr, [facility] [place] [facility] [address] [id number] [place] [address]- 6149 Mar, 2011 [facility] [place] [facility] [address] [id number] [place] [address]- 4329 Mar, [facility] [place] [facility] [address] [id number] [place] 3266 Mar, [facility] [place] [facility] [address] [id number] [place] [address]- 0611 Mar, [facility] [place] [facility] [address] [id number] [place] [address]- 3040 Mar, [facility] [place] [facility] [address] [id number] [place] 3462 Mar, [facility] [place] [facility] [address] [id number] [place] [address]- 8322 Mar, [facility] [place] [facility] [address] [id number] [place] 0241 Mar, [facility] [place] [facility] [address] [id number] [place] [address]- 6283 Mar, [facility] [place] [facility] [address] [id number] [place] [address]- 2175 Mar, [facility] [place] [facility] [address] [id number] [place] [address]- 2021 Mar, [facility] [place] [facility] [address] [id number] [place] [address]- 1316 Mar, [facility] [place] [facility] [address] [id number] [place] [address]- 1270 Feb, [facility] [place] [facility] [address] [id number] [place] [address]- 9194 Jan, [facility] [place] [facility] [address] [id number] [place] [address]- 6781 Jan, [facility] [place] [facility] [address] [id number] [place] [address]- 8611 Jan, [facility] [place] [facility] [address] [id number] [place] [address]- 8186 Jan, [facility] [address] [id number] [place] [address]- 1449 Jan[facility] [place] [facility] [address] [id number] [place] [address]- 0684 Dec, [facility] [place] [facility] [address] [id number] [place] [address]- 8215 Dec, [facility] [address] [id number] [place] [address]- 1040 Nov, [facility] [address] [id number] [place] [address]- 8424 Nov, [facility] [address] [id number] [place] [address]- 4857 Nov, [facility] [address] [id number] [place] [address]- 3735 October, [facility] [address] [id number] [place] [address]- 4267 October, [facility] [address] [id number] [place] [address]- 3578 October, [facility] [address] [id number] [place] [address]- 3145 October, [facility] [place] [facility] [address] [id number] [place] [address]- 9897 October, [facility] [place] [facility] [address] [id number] [place] [address]- 2404 October, [facility] [place] [facility] [address] [id number] [place] [address]- 5786 October, [facility] [place] [facility] [address] [id number] [place] [address]- 6280 Sep, [facility] [place] [facility] [address] [id number] [place] [address]- 4837 26 Sep, 2011 [facility] [place] [facility] [address] [id number] [place] [address]- 3248 26 Sep, 2011 [facility] [place] [facility] [address] [id number] [place] [address]- 3697 25 Sep, 2011 [facility] [place] [facility] [address] [id number] [place] [address]- 9358 24 Sep, 2011 [facility] [place] [facility] [address] [id number] [place] [address]- 3219 19 Sep, 2011 [facility] [place] [facility] [address] [id number] [place] [address]- 1894 17 Sep, 2011 [facility] [place] [facility] [address] [id number] [place] [address]- 7931 16 Sep, 2011 [facility] [place] [facility] [address] [id number] [place] [address]- 4090 16 Sep, 2011 [facility] [place] [facility] [address] [id number] [place] [address]- 3204 14 Sep, 2011 [facility] [place] [facility] [address] [id number] [place] [address]- 3675 13 Sep, 2011 [facility] [place] [facility] [address] [id number] [place] [address]- 8728 10 Sep, 2011 [facility] [place] [facility] [address] [id number] [place] [address]- 7020 09 Sep, 2011 [facility] [place] [facility] [address] [id number] [place] [address]- 0108 27 Aug, 2011 [facility] [place] [facility] [address] [id number] [place] [address]- 9271 12 Aug, 2011 [facility] [place] [facility] [address] [id number] [place] [address]- 7226 08 Aug, 2011 [facility] [place] [facility] [address] [id number] [place] [address]- 4109 06 Aug, 2011 [facility] [place] [facility] [address] [id number] [place] [address]- 7534 28 Jul, 2011 [facility] [address] [id number] [place] [address]- 6156 22 Jul, 2011 [facility] [place] [facility] [address] [id number] [place] [address] 2546 16 Jul, 2011 [facility] [place] [facility] [address] [id number] [place] [address] 2546 15 Jul, 2011 [facility] [place] [facility] [address] [id number] [place] [address] 2541 14 Jul, 2011 [facility] [place] [facility] [address] [id number] [place] [address]- 9616 10 Jul, 2011 [facility] [place] [facility] [address] [id number] [place] [address]- 7082 30 Jun, 2011 [facility] [place] [facility] [address] [id number] [place] [address]- 6588 Jun, [facility] [place] [facility] [address] [id number] [place] [address]- 7682 Jun, [facility] [place] [facility] [address] [id number] [place] [address]- 4040 Jun, [facility] [place] [facility] [address] [id number] [place] [address]- 9282 Jun, [facility] [place] [facility] [address] [id number] [place] [address]- 7061 May, [facility] [place] [facility] [address] [id number] [place] [address] 2541 May, [facility] [place] [facility] [address] [id number] [place] [address]- 1006 May, [facility] [place] [facility] [address] [id number] [place] [address]- 2544 14 May, 2011 [facility] [place] [facility] [address] [id number] [place] [address]- 3460 May, [facility] [place] [facility] [address] [id number] [place] [address]- 2315 May, [facility] [place] [facility] [address] [id number] [place] [address]- 4314 May, [facility] [place] [facility] [address] [id number] [place] [address]- 9889 Apr, [facility] [place] [facility] [address] [id number] [place] [address]- 7346 Apr, [facility] [place] [facility] [address] [id number] [place] [address]- 8084 Apr, [facility] [place] [facility] [address] [id number] [place] [address]- 7961 Apr, [facility] [place] [facility] [address] [id number] [place] [address]- 1825 Apr, [facility] [place] [facility] [address] [id number] [place] [address]- 2951 Apr, [facility] [place] [facility] [address] [id number] [place] [address]- 6568 Mar, [facility] [place] [facility] [address] [id number] [place] [address]- 4809 Mar, [facility] [place] [facility] [address] [id number], [place] [address]- 0533 Mar, [facility] [place] [facility] [address] [id number], [place] [address] Mar, [facility] [place] [facility] [address] [id number] [place] [address] Jan, [facility] [place] [facility] [address] [id number] [place] [address] Dec, [facility] [place] [facility] [address] [id number] [place] [address] Dec, [facility] [place] [facility] [address] [id number] [place] [address] 11 Oct, 2010 [facility] [address] [id number] [place] [address] 20 Sep, 2010 [facility] [place] [facility] [address] [id number] [place] [address] 14 Sep, 2010 [facility] [address] [id number] [place] [address] 17 Jul, 2010 [facility] [place] [facility] [address] [id number] [place] [address] 16 Jul, 2010 [facility] [address] [id number] [place] [address] 31 May, 2010 [facility] [address] [id number] [place] [address] 27 May, 2010 [facility] [address] [id number] [place] [address] 08 May, 2010 [facility] [address] [id number] [place] [address] 06 May, 2010 [facility] [place] [facility] [address] [id number] [place] [address] 22 Apr, 2010 [facility] [address] [id number] [place] [address] Apr, [facility] [place] [facility] [address] [id number] [place] [address] 18 Apr, 2010 [facility] [place] [facility] [address] [id number] [place] [address] 18 Apr, 2010 [facility] [place] [facility] [address] [id number] [place] [address] Apr, [facility] [place] [facility] [address] [id number] [place] [address] Mar, [facility] [place] [facility] [address] [id number] [place] [address] 14 Mar, 2010 [facility] [place] [facility] [address] [id number] [place] [address] 13 Mar, 2010 [facility] [place] [facility] [address] [id number] [place] [address]- [address] 12 Mar, 2010 [facility] [place] [facility] [address] [id number], [place] [address] 20 Jan, 2010 [facility] [place] [facility] [address] [id number] [place] [address] 15 Dec, 2009 [facility] [place] [facility] [address] [id number] [place] [address] 10 Sep, 2009 [facility] [place] [facility] [address] [id number], [place] [address] 08 May, 2009 [facility] [place] [facility] [address] [id number], [place] [address] May, [facility] [place] [facility] [address] [id number], [place] [address] 02 May, 2009 [facility] [place] [facility] [address] [facility] [id number], [place] [address] 17 Apr, 2009 [facility] [place] [facility] [address] [facility] [id number], [place] [address] 17 Apr, 2009 [facility] [place] [facility] [address] [facility] [id number], [place] [address] 10 Apr, 2009 [facility] [place] [facility] [address] [id number], [place] [address] 10 Apr, 2009 [facility] [place] [facility] [address] [id number], [place] [address] 09 Apr, 2009 [facility] [place] [facility] [address] [id number], [place] [address] 15 Mar, 2009 [facility] [place] [facility] [address] [facility] [id number], [place] [address] 15 Mar, 2009 [facility] [place] [facility] [address] [id number], [place] [address] Jul, IMMUNIZATIONS No Known Immunizations SOCIAL HISTORY Never Assessed REASON FOR VISIT PLAN OF CARE VITAL SIGNS MEDICATIONS Unknown [...] Surgical History nephrectomy 03/2017 Hospitalization History Cellulitis-[facility] 12/20/15 Hospitalization History [facility] [place] [facility]- Abd pain 03/07/2017 Hospitalization History [facility] [place]- Abd pain 03/14/2017 Hospitalization History [facility] [place]- No bowel movement, rash 04/13/2017 Hospitalization History [facility] [place]- Abd pain r/t kidney surgery on 04/17/2017 Hospitalization History [facility] [place]- Abd pain r/t kidney surgery on 04/18/2017 Hospitalization History [facility] [place]- Lower abd pain 04/30/2017 Hospitalization History [facility] [place]- Cannot urinate 05/30/2017 Hospitalization History [facility] [place]- Pancreatitis Sx 06/29/2017 Hospitalization History [facility] [place]- Stomach pain 07/22/2017 Hospitalization History [facility] [place]- Left side pain 08/12/2017 Hospitalization History [facility] [place]- Incision site infection 08/30/2017 Hospitalization History [facility]- Post Op Seroma/Hematoma Left Abdomen. Discharged 09/04/17- Dr Daniel 09/02/2017 Hospitalization History [facility] [place]- Right shoulder and back pain 2017 Hospitalization History [facility] [place]- Shoulder/Back pain 11/11/2017 Hospitalization History [facility] [place]- Right shoulder blade pain 12/04/2017 Hospitalization History [facility] [place]- C-Diff 12/13/2017 Hospitalization History C diff et MRSA 12/27/2017
--- OUTSIDE RECORDS SUMMARY | 2018-02-13 11:01 | XMS REPORT ---
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 Name Role Phone CORTNEY GIBBSHANY Unavailable PROBLEMS Type Condition ICD9-CM Code CLP68-EF Code Onset Dates Condition Status SNOMED Code Problem Polydipsia R63.1 Active 12148252 Problem Trichotillomania F63.3 Active 20462940 Problem Atelectasis J98.11 Active 28715320 Problem Intestinal malabsorption, unspecified K90.9 Active 84093081 Problem Chronic fatigue R53.82 Active 18501219 Problem Generalized social phobia F40.11 Active 53109089 Problem Restless leg syndrome G25.81 Active 89741455 Problem Moderate episode of recurrent major depressive disorder F33.1 Active 966838177 Problem Chronic post-traumatic stress disorder (PTSD) F43.12 Active 712424072 Problem History of renal cell carcinoma Z85.528 Active 413012649 Problem Chronic tension-type headache, intractable G44.221 Active 449625361 Problem Nodule of left lung R91.1 Active 087897785 Problem Hirsuties L68.0 Active 748695828 Problem FH: polycystic ovary Z84.2 Active 647927993 Problem Morbid (severe) obesity due to excess calories E66.01 Active 968689670 Problem Chronic pancreatitis K86.1 Active 469349970 Problem Hyperlipidemia, mixed E78.2 Active 811655335 Problem Asthma J45.909 Active 375207182 ALLERGIES No Information ENCOUNTERS Encounter Location Date Diagnosis [facility] [id number] [address] Feb, [facility] [id number] [address] Jan, [facility] [id number] [address] 5[address] Jan, [facility] [address], [place] [address] Dec, [facility] [id number] [place] [address] 07134- 5588 Dec, Intestinal malabsorption, unspecified K90.9 and Diarrhea, unspecified R19.7 [facility] [id number] [place] [address] 61310- 8917 Dec, [facility] [id number] [place] [address] 34685- 9470 Dec, Strep throat J02.0 ; Intestinal malabsorption, unspecified K90.9 ; Diarrhea, unspecified R19.7 ; Postoperative seroma involving digestive system after non-digestive system procedure K91.873 ; Hyperlipidemia, mixed E78.2 and BMI 45.0-49.9, adult Z68.42 [facility] [id number] [place] [address] 76772- 5114 Dec, [facility] [id number] [place] [address] 18523- 2064 Dec, Nausea R11.0 [facility] [id number] [place] [address] 05497- 4313 Dec, [facility] [address] [address] Dec, Sore throat J02.9 ; Strep throat J02.0 and BMI 45.0-49.9, adult Z68.42 [facility] [address], [place] [address] 8[address] Dec, [facility] [id number] [place] [address] 09459- 4818 Dec, [facility] [address] [address] 2934 Dec, [facility] [id number] [place] [address] 60986- 9166 Dec, [facility] [address] [address] 9003 Dec, [facility] [id number] [place] [address] 95229- 9501 Dec, [facility] [id number] [place] [address] 26022- 0556 Dec, [facility] [id number] [place] [address] 05626- 0797 Dec, [facility] [id number] [place] [address] 38869- 3382 Dec, Clostridium difficile colitis A04.72 ; Intractable vomiting with nausea, unspecified vomiting type R11.2 and BMI 45.0-49.9, adult Z68.42 [facility] [id number] [place] [address] 19657- 7410 Dec, [facility] [id number] [address] 9813 Nov, [facility] [id number] [place] [address] 34256- 0632 Nov, [facility] [id number] [place] [address] 84736- 6577 Nov, [facility] [id number] [place] [address] 10431- 3659 Nov, [facility] [address], [place] [address] Nov, [facility] [id number] [place] [address] 36250- 6386 Nov, Hyperlipidemia, mixed E78.2 [facility] [address], [place] [address] Nov, Acute suppurative otitis media of right ear without spontaneous rupture of tympanic membrane, recurrence not specified H66.001 and BMI 45.0-49.9, adult Z68.42 [address] [place] [address], [place] [address] 8723 Nov, Hyperlipidemia, mixed E78.2 [address] [place] [address] [place] [address] 45245- 0176 Nov, [address] [id number] [place] [address] 46684- 4733 Nov, [address] [place] [id number] [place] [address] 70174- 7148 Nov, Nodule of left lung R91.1 [address] [id number] [place] [address] 60165- 6285 Nov, Medicare annual wellness visit, initial Z00.00 [...] and Encounter for immunization Z23 [place] [address] [place] [address] 83126- 6468 October, [place] [address] [place] [address] 49256- 0627 October, Nodule of left lung R91.1 [place] [id number] [place] [address] 57971- 8666 October, Nodule of left lung R91.1 [address] [place] [address] [place] [address] 39754- 1831 October, Recurrent major depressive disorder, in partial remission F33.41 ; Restless leg syndrome G25.81 ; Generalized social phobia F40.11 ; Chronic post-traumatic stress disorder (PTSD) F43.12 ; BMI 45.0-49.9, adult Z68.42 and Trichotillomania F63.3 [place] [place] [id number] [place] [address] 44861- 6410 October, [facility] [id number] [place] [address] 52630- 7562 Sep, Chronic fatigue R53.82 and BMI 45.0-49.9, adult Z68.42 [place] [id number] [place] [address] 42543- 4370 Aug, [place] [id number] [place] [address] 42844- 7050 Jul, Restless leg syndrome G25.81 and B12 deficiency E53.8 [place] [address] 10148- 2741 Jul, [place] [address] 83156- 3425 Jul, [place] [id number] [place] [address] 83224- 6958 Jun, [place] [id number] [place] [address] 33058- 6066 Jun, Fatigue, unspecified type R53.83 ; History of renal cell carcinoma Z85.528 ; Chronic pancreatitis K86.1 ; Restless leg syndrome G25.81 ; Dark urine R82.99 and BMI 45.0-49.9, adult Z68.42 [place] [id number] [place] [address] 79624- 5077 Jun, [place] [address] 70351- 7737 Jun, [facility] [id number] [place] [address] 38200- 9331 Jun, [address] [id number] [place] [address] 80066- 3110 Jun, [address], [place] [address] 5048 May, Chronic post-traumatic stress disorder (PTSD) F43.12 ; Moderate episode of recurrent major depressive disorder F33.1 ; Trichotillomania F63.3 and Generalized social phobia F40.11 [address] [id number] [place] [address] 59929- 2403 May, [address] [id number] [place] [address] 62565- 9292 May, Chronic post-traumatic stress disorder (PTSD) F43.12 ; Moderate episode of recurrent major depressive disorder F33.1 ; Trichotillomania F63.3 and Generalized social phobia F40.11 [address] [place] [place] [address] 99775- 9264 May, Hyperlipidemia, mixed E78.2 ; Morbid (severe) obesity due to excess calories E66.01 ; Chronic post-traumatic stress disorder (PTSD) F43.12 ; Moderate episode of recurrent major depressive disorder F33.1 ; Trichotillomania F63.3 and Generalized social phobia F40.11 [address] [place] [address] 92166- 5145 Apr, [address] [place] [place] [address] 67319- 9229 Apr, Hyperlipidemia, mixed E78.2 ; Morbid (severe) obesity due to excess calories E66.01 ; Chronic post-traumatic stress disorder (PTSD) F43.12 ; Moderate episode of recurrent major depressive disorder F33.1 ; Trichotillomania F63.3 and Generalized social phobia F40.11 [address] [place] [id number] [place] [address] 09303- 1639 Apr, Trichotillomania F63.3 ; Generalized social phobia F40.11 ; Chronic post-traumatic stress disorder (PTSD) F43.12 and Moderate episode of recurrent major depressive disorder F33.1 [place] [id number] [place] [address] 01469- 0687 Apr, [facility] [id number] [place] [address] 06562- 3623 Apr, [facility] [id number] [place] [address] 89182- 4465 Mar, Moderate episode of recurrent major depressive disorder F33.1 ; Trichotillomania F63.3 ; Chronic post-traumatic stress disorder (PTSD) F43.12 ; Generalized social phobia F40.11 and Restless leg syndrome G25.81 [facility] [id number] [place] [address] 34395- 8105 Mar, [facility] [id number] [place] [address] 11674- 4714 Mar, [address] [id number] [place] [address] 60092- 4367 Feb, Left kidney mass N28.89 [facility] [id number] [place] [address] 74447- 3668 Jan, [facility] [id number] [place] [address] 66964- 0953 Dec, Polydipsia R63.1 ; Chronic pancreatitis K86.1 and Fatigue, unspecified type R53.83 [address] [id number] [place] [address] 85768- 9574 Nov, [facility] [id number] [place] [address] 79545- 9901 Nov, [facility] [id number] [place] [address] 94822- 1723 Nov, Headache around the eyes R51 [facility] [id number] [place] [address] 29966- 8493 Nov, [facility] [id number] [place] [address] 46065- 8838 October, STD exposure Z20.2 [facility] [id number] [place] [address] 58133- 1246 October, STD exposure Z20.2 [address] [id number] [place] [address] 41606- 5849 October, Chronic post-traumatic stress disorder (PTSD) F43.12 ; Generalized social phobia F40.11 ; Trichotillomania F63.3 and Restless leg syndrome G25.81 [facility] [id number] [place] [address] 30006- 5608 October, [place] [id number] [place] [address] 46669- 3601 Sep, [facility] [id number] [place] [address] 75178- 2984 Aug, [address] [place] [id number] [place] [address] 08193- 0439 Aug, [facility] [id number] [place] [address] 34354- 8906 Aug, Neck mass R22.1 [address] [id number] [place] [address] 10330- 4884 Aug, Atelectasis J98.11 [address] [place] [address] [place] [address] 79115- 9215 28 Jul, 2016 Hyperlipidemia, mixed E78.2 ; Atypical pneumonia J18.9 and Neck mass R22.1 [address] [place] [place] [address] 58158- 8825 15 Jul, 2016 Hemoptysis R04.2 [address] [id number] [place] [address] 80864- 2033 08 Jul, 2016 Acute non-recurrent pansinusitis J01.40 ; Hemoptysis R04.2 ; Polydipsia R63.1 and Malaise R53.81 [facility] [id number] [place] [address] 30546 -5715 May, Other viral agents as the cause of diseases classified elsewhere B97.89 and Acute upper respiratory infection, unspecified J06.9 [facility] [id number] [place] [address] 76395 -1136 Mar, Nausea R11.0 [facility] [id number] [place] [address] 71882 -7263 Dec, Hives L50.9 [place] [address] 56072- 9402 Dec, [facility] [address] 11288 -7973 Dec, Cutaneous abscess of limb, unspecified L02.419 ; Cellulitis of unspecified part of limb L03.119 ; Encounter for incision and drainage procedure Z01.89 and Encounter for recheck of abscess following incision and drainage Z09 [facility] [id number] [place] [address] 57416 -2931 Dec, Abscess of leg, right L02.415 [id number] [place] [address] 38731- 0506 Dec, Cellulitis of unspecified part of limb L03.119 and Cutaneous abscess of limb, unspecified L02.419 [place] [id number] [place] [address] 72037- 3440 Dec, [place] [id number] [place] [address] 23456- 0995 Dec, [facility] [id number] [place] [address] 52394 -1203 Aug, [place] [address] [place] [address] 35714- 9905 Aug, [facility] [id number] [place] [address] 93941 -4988 Jul, Pain in unspecified wrist M25.539 and Back pain, thoracic M54.6 [facility] [address] [place] [address] 44235 -8962 Jun, Strain of right wrist, initial encounter S66.911A [facility] [id number] [place] [address] 08657- 6797 11 Jun, 2015 Chronic pancreatitis, unspecified pancreatitis type K86.1 ; Hirsuties L68.0 ; Morbid (severe) obesity due to excess calories E66.01 ; Chronic pancreatitis K86.1 and Asthma J45.909 [facility] [id number] [place] [address] 95920- 1144 May, [place] [address] 98577- 7554 May, Hyperlipidemia, mixed E78.2 and Muscle spasm of back M62.830 [place] [address] 04643- 6408 Apr, [place] [id number] [place] [address] 03055- 9496 Apr, Torticollis M43.6 [facility] [id number] [place] [address] 92649- 9240 Apr, Right-sided thoracic back pain M54.6 [facility] [id number] [place] [address] 09688- 2332 Mar, Rash R21 [facility] [id number] [place] [address] 12369- 2806 Mar, [place] [id number] [place] [address] 77875- 7640 Jan, [facility] [address] 04911- 8746 Dec, [facility] [id number] [place] [address] 86978- 5612 Dec, Urinary frequency 788.41 and Nocturia more than twice per night 788.43 [facility] [address] [address]- 3723 Nov, [facility] [address] [place] [address] 09327- 5554 Nov, [facility] [id number] [place] [address] 76729- 5778 Nov, Abdominal pain 789.00 [facility] [id number] [place] [address] 32696- 1835 October, TDAP DX V06.1 [facility] [id number] [place] [address] 91632- 1036 October, [facility] [id number] [place] [address] 10983- 2742 October, Disturbance of skin sensation 782.0 ; Wrist pain, right 719.43 ; Hyperlipidemia 272.4 and Skin lesion of face 709.9 [facility] [address] [place] [address] 22864- 1199 Sep, [facility] [id number] [place] [address] 05158- 5934 Sep, [facility] [id number] [address]- 5378 Aug, [facility] [address], [place] [address]- 6312 Aug, [facility] [address] [address]- 7604 Aug, [facility] [id number] [place] [address] 03749- 9591 Aug, [facility] [id number] [address]- 1524 Aug, [facility] [id number] [place] [address] 10982- 2150 Aug, [facility] [place] [facility] [address] [id number] [place] [address]- 2042 14 Aug, 2014 [facility] [place] [facility] [address] [id number] [place] [address]- 5420 14 Aug, 2014 [facility] [place] [facility] [address] [id number] [place] [address]- 8072 Aug, [facility] [place] [facility] [address] [id number] [place] [address]- 3896 Aug, [facility] [place] [facility] [address] [id number] [place] [address]- 7009 Aug, [facility] [place] [facility] [address] [id number] [place] [address]- 5042 Aug, [facility] [place] [facility] [address] [id number] [place] [address]- 8618 Aug, [facility] [place] [facility] [address] [id number] [place] [address]- 5439 Aug, [facility] [place] [facility] [address] [id number] [place] [address]- 5037 Jul, [facility] [place] [facility] [address] [id number] [place] [address]- 4384 Jul, 2014 [facility] [place] [facility] [address] [id number] [place] [address]- 0139 Jul, 2014 [facility] [place] [facility] [address] [id number] [place] [address]- 1703 Jul, 2014 [facility] [place] [facility] [address] [id number] [place] [address]- 0688 Jul, [facility] [place] [facility] [address] [id number] [place] [address]- 4859 Jul, [facility] [place] [facility] [address] [id number] [place] [address]- 7519 Jun, [facility] [place] [facility] [address] [id number] [place] [address]- 9424 Jun, [facility] [address] [id number] [place] [address]- 3721 Jun, [facility] [address] [id number] [place] [address]- 5586 Jun, [facility] [address] [id number] [place] [address]- 2096 Jun, [facility] [address] [id number] [place] [address]- 5703 Jun, [facility] [address] [id number] [place] [address]- 3700 Jun, [facility] [address] [id number] [place] [address]- 7222 Jun, [facility] [address] [id number] [place] [address]- 9199 May, [facility] [address] [id number] [place] [address]- 3261 May, [facility] [address] [id number] [place] [address]- 9831 18 May, 2014 [facility] [address] [id number] [place] [address]- 7624 18 May, 2014 [facility] [place] [facility] [address] [id number] [place] [address]- 9099 15 May, 2014 [facility] [address] [id number] [place] [address]- 7548 15 May, 2014 [facility] [place] [facility] [address] [id number] [place] [address]- 5023 May, [facility] [place] [facility] [address] [id number] [place] [address]- 5402 May, [facility] [place] [facility] [address] [id number] [place] [address]- 2113 May, [facility] [place] [facility] [address] [id number] [place] [address]- 7274 May, [facility] [place] [facility] [address] [id number] [place] [address]- 6581 May, [facility] [place] [facility] [address] [id number] [place] [address]- 0325 May, [facility] [place] [facility] [address] [id number] [place] [address] Apr, [facility] [place] [facility] [address] [id number] [place] [address] Apr, [facility] [place] [facility] [address] [id number] [place] [address] Apr, [facility] [place] [facility] [address] [id number] [place] [address] Apr, [facility] [place] [facility] [address] [id number] [place] [address] Apr, [facility] [place] [facility] [address] [id number] [place] [address] Apr, [facility] [place] [facility] [address] [id number] [place] [address] Apr, [facility] [place] [facility] [address] [id number] [place] [address] Apr, [facility] [place] [facility] [address] [id number], [place] [address] Apr, [facility] [place] [facility] [address] [id number] [place] [address] Apr, [facility] [place] [facility] [address] [id number] [place] [address] Apr, [facility] [place] [facility] [address] [id number], [place] [address] Apr, [facility] [place] [facility] [address] [id number], [place] [address] Mar, [facility] [place] [facility] [address] [id number] [place] [address] Mar, [facility] [place] [facility] [address] [id number] [place] [address] Mar, [facility] [place] [facility] [address] [id number] [place] [address] Mar, [facility] [place] [facility] [address] [id number] [place] [address] Feb, [facility] [place] [facility] [address] [id number] [place] [address] Feb, [facility] [place] [facility] [address] [id number] [place] [address] 05 Feb, 2014 [facility] [place] [facility] [address] [id number] [place] [address] Feb, [facility] [place] [facility] [address] [id number] [place] [address] Feb, [facility] [place] [facility] [address] [id number] [place] [address] Feb, [facility] [place] [facility] [address] [id number] [place] [address] Jan, [facility] [place] [facility] [address] [id number] [place] [address] Jan, [facility] [place] [facility] [address] [id number] [place] [address] Jan, [facility] [place] [facility] [address] [id number] [place] [address] Jan, [facility] [place] [facility] [address] [id number] [place] [address] Jan, [facility] [place] [facility] [address] [id number] [place] [address] Jan, [facility] [place] [facility] [address] [id number] [place] [address] Jan, 2013 [facility] [place] [facility] [address] [id number] [place] [address] Jan, [facility] [place] [facility] [address] [id number] [place] [address] Jan, [facility] [place] [facility] [address] [id number] [place] [address] Jan, [facility] [place] [facility] [address] [id number] [place] [address] Jan, [facility] [place] [facility] [address] [id number] [place] [address] Jan, [facility] [place] [facility] [address] [id number] [place] [address] Jan, [facility] [place] [facility] [address] [id number] [place] [address] Jan, [facility] [place] [facility] [address] [id number] [place] [address] Dec, [facility] [place] [facility] [address] [id number] [place] [address] Dec, [facility] [place] [facility] [address] [id number] [place] [address]- 5794 Dec, [facility] [place] [facility] [address] [id number] [place] [address] 9[address] Dec, [facility] [place] [facility] [address] [id number] [place] [address] 6[address] Nov, [facility] [place] [facility] [address] [id number] [place] [address]- 4[address] Nov, [facility] [place] [facility] [address] [id number] [place] [address]- 1724 Nov, [facility] [place] [facility] [address] [id number] [place] [address]- 9536 Nov, [facility] [place] [facility] [address] [id number] [place] [address]- 2337 Nov, [facility] [place] [facility] [address] [id number] [place] [address]- 8840 October, [facility] [place] [facility] [address] [id number] [place] [address]- 6955 October, [facility] [place] [facility] [address] [id number] [place] [address]- 4960 October, [facility] [place] [facility] [address] [id number] [place] [address]- 9464 October, [facility] [place] [facility] [address] [id number] [place] [address]- 3896 October, [facility] [place] [facility] [address] [id number] [place] [address]- [address] October, [facility] [place] [facility] [address] [id number] [place] [address]- 9999 October, [facility] [place] [facility] [address] [id number] [place] [address]- 7426 October, [facility] [place] [facility] [address] [id number] [place] [address]- 5140 October, [facility] [place] [facility] [address] [id number] [place] [address]- 6450 October, [facility] [place] [facility] [address] [id number] [place] [address]- 6991 October, [facility] [place] [facility] [address] [id number] [place] [address]- 7443 October, [facility] [place] [facility] [address] [id number] [place] [address]- 6219 October, [facility] [place] [facility] [address] [id number] [place] [address]- 4650 October, [facility] [place] [facility] [address] [id number] [place] [address]- 6394 17 Sep, 2013 [facility] [place] [facility] [address] [id number] [place] [address]- 4683 17 Sep, 2013 [facility] [place] [facility] [address] [id number] [place] [address]- 7118 Sep, [facility] [place] [facility] [address] [id number] [place] [address]- 0856 Sep, [facility] [place] [facility] [address] [id number] [place] [address]- 4133 Sep, [facility] [place] [facility] [address] [id number] [place] [address]- 5405 Sep, [facility] [place] [facility] [address] [id number] [place] [address]- 5872 Sep, [facility] [place] [facility] [address] [id number] [place] [address]- 8635 Sep, [facility] [place] [facility] [address] [id number] [place] [address]- 1233 Sep, [facility] [place] [facility] [address] [id number] [place] [address]- 5080 Sep, [facility] [place] [facility] [address] [id number] [place] [address]- 9895 Sep, [facility] [place] [facility] [address] [id number] [place] [address]- 3763 Sep, [facility] [place] [facility] [address] [id number] [place] [address]- 4622 Sep, [facility] [place] [facility] [address] [id number] [place] [address]- 6233 Sep, [facility] [place] [facility] [address] [id number] [place] [address]- 6579 Sep, [facility] [place] [facility] [address] [id number] [place] [address]- 4249 Aug, [facility] [place] [facility] [address] [id number] [place] [address]- 2449 Aug, [facility] [place] [facility] [address] [id number] [place] [address]- 2541 Aug, [facility] [place] [facility] [address] [id number] [place] [address]- 5963 Aug, [facility] [place] [facility] [address] [id number] [place] [address]- 6650 Jul, [facility] [place] [facility] [address] [id number] [place] [address]- 2157 Jul, [facility] [place] [facility] [address] [id number] [place] [address]- 9555 Jul, [facility] [place] [facility] [address] [id number] [place] [address]- 9973 Jul, [facility] [place] [facility] [address] [id number] [place] [address]- 0935 Jun, [facility] [place] [facility] [address] [id number] [place] [address]- 1942 Jun, [facility] [place] [facility] [address] [id number] [place] [address]- 9190 Jun, [facility] [place] [facility] [address] [id number] [place] [address]- 1969 Jun, [facility] [place] [facility] [address] [id number] [place] [address]- 7285 Jun, [facility] [place] [facility] [address] [id number] [place] [address]- 0301 Jun, [facility] [place] [facility] [address] [id number] [place] [address]- 4833 Jun, [facility] [place] [facility] [address] [id number] [place] [address]- 6812 Jun, [facility] [place] [facility] [address] [id number], [place] [address] 20 May, 2013 [facility] [address] [id number] [place] [address]- 6288 20 May, 2013 [facility] [address] [id number] [place] [address] 18 May, 2013 [facility] [address] [id number] [place] 1974 18 May, 2013 [facility] [address] [id number] [place] [address]- 7303 17 May, 2013 [facility] [address] [id number] [place] [id number] 17 May, 2013 [facility] [address] [id number] [place] [address]- 0302 17 May, 2013 [facility] [address] [id number] [place] [address]- 6229 17 May, 2013 [facility] [address] [id number] [place] [address]- 5597 16 May, 2013 [facility] [address] [id number] [place] [address]- 6210 16 May, 2013 [facility] [address] [id number] [place] [address]- 8969 14 May, 2013 [facility] [address] [id number] [place] [address]- 0158 14 May, 2013 [facility] [address] [id number] [place] [address]- 4084 13 May, 2013 [facility] [address] [id number] [place] [address]- 2047 13 May, 2013 [facility] [place] [facility] [address] [id number] [place] [address]651 12 May, 2013 [facility] [address] [id number] [place] [address]- 4812 12 May, 2013 [facility] [place] [facility] [address] [id number] [place] [address]- 3153 May, [facility] [address] [id number] [place] [address]- 2020 May, [facility] [address] [id number] [place] [address]- 6010 Apr, [facility] [address] [id number] [place] [address]- 8625 Apr, [facility] [address] [id number] [place] [address]- 9915 Apr, [facility] [address] [id number] [place] [address]- 9410 Apr, [facility] [address] [id number] [place] [address]- 4672 Aug, [facility] [address] [id number] [place] [address]- 6856 Aug, [facility] [address] [id number] [place] [address]- 1322 Aug, [facility] [address] [id number] [place] [address]- 9487 Aug, [facility] [address] [id number] [place] [address]- 4412 Jul, [facility] [address] [id number] [place] [address]- 6258 Jun, [facility] [address] [id number] [place] [address]- 2310 Jun, [facility] [address] [id number] [place] [address]- 2546 Jun, [facility] [address] [id number] [place] [address]- 2546 Jun, [facility] [address] [id number] [place] [address]- 5048 May, [facility] [place] [facility] [address] [id number] [place] [address]- 4990 May, [facility] [place] [facility] [address] [id number] [place] [address]- 2540 May, [facility] [place] [facility] [address] [id number] [place] 5409 May, [facility] [place] [facility] [address] [id number] [place] [address]- 0940 May, [facility] [place] [facility] [address] [id number] [place] [address]- 2482 May, [facility] [place] [facility] [address] [id number] [place] [address]- 2807 May, [facility] [place] [facility] [address] [facility] [id number] [place] [address]- 4013 Apr, [facility] [place] [facility] [address] [id number], [place] [address]- 0381 Apr, [facility] [place] [facility] [address] [id number] [place] [address]- 8765 Apr, [facility] [place] [facility] [address] [facility] [id number], [place] [address]- 1607 Apr, [facility] [place] [facility] [address] [id number], [place] [address]- 3451 Apr, [facility] [place] [facility] [address] [id number], [place] [address]- 5037 Apr, [facility] [place] [facility] [address] [id number], [place] [address]- 8812 Apr, [facility] [place] [facility] [address] [id number], [place] [address]- 3541 Mar, [facility] [place] [facility] [address] [id number], [place] [address]- 8110 Mar, [facility] [place] [facility] [address] [id number] [place] [address]- 7122 19 Mar, 2012 [facility] [place] [facility] [address] [id number] [place] [address]- 4419 Mar, 2011 [facility] [place] [facility] [address] [id number] [place] 1309 Mar, [facility] [place] [facility] [address] [id number] [place] [address]- 0521 Mar, [facility] [place] [facility] [address] [id number] [place] [address]- 2996 Mar, [facility] [place] [facility] [address] [id number] [place] [address] Mar, [facility] [place] [facility] [address] [id number] [place] [address]- 0469 Mar, [facility] [place] [facility] [address] [id number] [place] [address]- 5181 Mar, [facility] [place] [facility] [address] [id number] [place] [address]- 6957 Mar, [facility] [place] [facility] [address] [id number] [place] [address]- 4870 Mar, [facility] [place] [facility] [address] [facility] [id number] [place] [address]- 9804 Feb, [facility] [place] [facility] [address] [id number] [place] [address]- 5725 Jan, [facility] [place] [facility] [address] [id number] [place] [address]- 1393 Jan, [facility] [place] [facility] [address] [id number] [place] [address]- 7747 Jan, [facility] [place] [facility] [address] [id number] [place] [address]- 6803 Jan, [facility] [place] [facility] [address] [facility] [id number] [place] [address]- 9023 Jan, [facility] [place] [facility] [address] [id number] [place] [address]- 4474 Dec, [facility] [place] [facility] [address] [id number] [place] [address]- 7810 Dec, [facility] [place] [facility] [address] [id number] [place] [address]- 2748 Nov, [facility] [place] [facility] [address] [id number] [place] [address]- 1376 Nov, [facility] [place] [facility] [address] [id number] [place] [address]- 2996 Nov, [facility] [place] [facility] [address] [id number] [place] [address]- 1501 October, [facility] [address] [id number] [place] [address]- 3399 October, [facility] [address] [id number] [place] [address]- 6482 October, [facility] [address] [id number] [place] [address]- 3342 October, [facility] [place] [facility] [address] [id number] [place] [address]- 8281 October, [facility] [place] [facility] [address] [id number] [place] [address]- 4178 October, [facility] [place] [facility] [address] [id number] [place] [address]- 3430 October, [facility] [place] [facility] [address] [id number] [place] [address]- 8180 Sep, [facility] [place] [facility] [address] [id number] [place] [address]- 9057 Sep, [facility] [place] [facility] [address] [id number] [place] [address]- 8943 Sep, [facility] [place] [facility] [address] [id number] [place] [address]- 7157 25 Sep, 2011 [facility] [place] [facility] [address] [id number] [place] [address]- 2648 24 Sep, 2011 [facility] [place] [facility] [address] [id number] [place] [address]- 1805 19 Sep, 2011 [facility] [place] [facility] [address] [id number] [place] [address]- 4621 17 Sep, 2011 [facility] [place] [facility] [address] [id number] [place] [address]- 9732 16 Sep, 2011 [facility] [place] [facility] [address] [id number] [place] [address]- 3711 16 Sep, 2011 [facility] [place] [facility] [address] [id number] [place] [address]- 1250 14 Sep, 2011 [facility] [place] [facility] [address] [id number] [place] [address]- 6886 13 Sep, 2011 [facility] [place] [facility] [address] [id number] [place] [address]- 6955 10 Sep, 2011 [facility] [place] [facility] [address] [id number] [place] [address]- 7373 09 Sep, 2011 [facility] [place] [facility] [address] [id number] [place] [address]- 8943 27 Aug, 2011 [facility] [place] [facility] [address] [id number] [place] [address]- 4086 12 Aug, 2011 [facility] [place] [facility] [address] [id number] [place] [address]- 1493 08 Aug, 2011 [facility] [place] [facility] [address] [id number] [place] [address]- 9403 06 Aug, 2011 [facility] [place] [facility] [address] [id number] [place] [address]- 7395 28 Jul, 2011 [facility] [place] [facility] [address] [id number] [place] [address]- 7527 Jul, [facility] [place] [facility] [address] [id number] [place] [address]- 5224 16 Jul, 2011 [facility] [address] [id number] [place] [address]- 3756 15 Jul, 2011 [facility] [place] [facility] [address] [id number] [place] [address]- 2266 14 Jul, 2011 [facility] [place] [facility] [address] [id number] [place] [address]- 9316 10 Jul, 2011 [facility] [place] [facility] [address] [id number] [place] [address]- 5856 30 Jun, 2011 [facility] [place] [facility] [address] [id number] [place] [address]- 2131 05 Jun, 2011 [facility] [address] [id number] [place] [address]- 0216 Jun, [facility] [address] [id number] [place] [address]- 9737 Jun, [facility] [address] [id number] [place] [address]- 9355 Jun, [facility] [address] [id number] [place] [address]- 6802 May, [facility] [address] [id number] [place] [address]- 1071 May, [facility] [place] [facility] [address] [id number] [place] [address]- 2256 14 May, 2011 [facility] [place] [facility] [address] [id number] [place] [address] 2549 14 May, 2011 [facility] [place] [facility] [address] [id number] [place] [address]- 6086 12 May, 2011 [facility] [place] [facility] [address] [id number] [place] [address] 2546 07 May, 2011 [facility] [place] [facility] [address] [id number] [place] [address]- 2613 May, [facility] [place] [facility] [address] [id number] [place] [address]- 4813 Apr, [facility] [place] [facility] [address] [id number] [place] [address]- 8603 Apr, [facility] [place] [facility] [address] [id number] [place] 5085 Apr, [facility] [place] [facility] [address] [id number] [place] [address]- 1594 Apr, [facility] [place] [facility] [address] [id number] [place] [address]- 2829 Apr, [facility] [place] [facility] [address] [id number] [place] [address]- 7372 Apr, [facility] [place] [facility] [address] [id number] [place] [address]- 1812 Mar, [facility] [place] [facility] [address] [id number] [place] [address]- 6875 Mar, [facility] [place] [facility] [address] [id number] [place] [address]- 1989 Mar, [facility] [place] [facility] [address] [id number] [place] [address]- 9913 Mar, [facility] [place] [facility] [address] [id number], [place] [address]- 8507 Jan, [facility] [place] [facility] [address] [id number], [place] [address]- 4221 Dec, [facility] [place] [facility] [address] [id number] [place] [address]- 1014 Dec, [facility] [place] [facility] [address] [id number], [place] [address]- 7783 October, [facility] [place] [facility] [address] [id number] [place] [address]- 6738 Sep, [facility] [place] [facility] [address] [id number] [place] [address]- 3269 14 Sep, 2010 [facility] [address] [id number] [place] [address]- 5176 17 Jul, 2010 [facility] [address] [id number] [place] [address] 2546 16 Jul, 2010 [facility] [address] [id number] [place] [address]- 5866 31 May, 2010 [facility] [place] [facility] [address] [id number] [place] [address] 2540 27 May, 2010 [facility] [address] [id number] [place] [address], [place] [address]- 6447 08 May, 2010 [facility] [address] [id number] [place] [address]- 4972 06 May, 2010 [facility] [address] [id number] [place] [address]- 9045 Apr, [facility] [address] [id number] [place] [address]- 2750 Apr, [facility] [address] [id number] [place] [address]- 8969 Apr, [facility] [address] [facility] [id number] [place] [address]- 7034 18 Apr, 2010 [facility] [place] [facility] [address] [id number] [place] [address] 2544 Apr, [facility] [place] [facility] [address] [id number] [place] [address]- 2540 21 Mar, 2010 [facility] [place] [facility] [address] [id number] [place] [address]- 1092 14 Mar, 2010 [facility] [place] [facility] [address] [id number] [place] [address]- 2541 13 Mar, 2010 [facility] [place] [facility] [address] [id number] [place] [address]- 7887 Mar, [facility] [address] [facility] [id number], [place] [address]- 1145 Jan, [facility] [address] [facility] [id number] 7317 Dec, [facility] [address] [facility] [id number], [place] [address] Sep, [facility] [address] [facility] [id number], [place] [address] May, [facility] [address] [facility] [id number] [address] May, [facility] [address] [facility] [id number] [address] May, [facility] [id number] [address] Apr, [facility] [id number] [address] Apr, [facility] [id number] [address] Apr, [facility] [address] [id number], [place] [address] Apr, [facility] [id number], [place] [address] Apr, [facility] [id number], [place] [address] Mar, [facility] [address] [id number], [place] [address] Mar, [facility] [address] [id number] [address] Jul, IMMUNIZATIONS No Known Immunizations SOCIAL HISTORY Never Assessed REASON FOR VISIT Future Lab orders PLAN OF CARE VITAL SIGNS MEDICATIONS Unknown [...] 08/2017 Surgical History nephrectomy 03/2017 Hospitalization History Cellulitis-[facility] 12/20/15 Hospitalization History [facility]- Abd pain 03/07/2017 Hospitalization History [facility]- Abd pain 03/14/2017 Hospitalization History [facility]- No bowel movement, rash 04/13/2017 Hospitalization History [facility]- Abd pain r/t kidney surgery on 04/17/2017 Hospitalization History [facility]- Abd pain r/t kidney surgery on 04/18/2017 Hospitalization History [facility]- Lower abd pain 04/30/2017 Hospitalization History [facility]- Cannot urinate 05/30/2017 Hospitalization History [facility]- Pancreatitis Sx 06/29/2017 Hospitalization History [facility]- Stomach pain 07/22/2017 Hospitalization History [facility]- Left side pain 08/12/2017 Hospitalization History [facility]- Incision site infection 08/30/2017 Hospitalization History [facility]- Post Op Seroma/Hematoma Left Abdomen. Discharged 09/04/17- Dr Daniel 09/02/2017 Hospitalization History [facility]- Right shoulder and back pain 2017 Hospitalization History [facility]- Shoulder/Back pain 11/11/2017 Hospitalization History [facility]- Right shoulder blade pain 12/04/2017 Hospitalization History [facility]- C-Diff 12/13/2017 Hospitalization History C diff et MRSA 12/27/2017
--- OUTSIDE RECORDS SUMMARY | 2018-02-13 11:02 | XMS REPORT ---
Author Author CAITLYN DAVIS [facility] Address [address] [place] [address] Care Team Providers [employer] Work[employer] Name Role Phone CAITLYN DAVIS Unavailable PROBLEMS Type Condition ICD9-CM Code [id number] Code Onset Dates Condition Status SNOMED Code Problem Polydipsia R63.1 Active 76680266 Problem Trichotillomania F63.3 Active 59121812 Problem Atelectasis J98.11 Active 50177731 Problem Intestinal malabsorption, unspecified K90.9 Active 53318039 Problem Chronic fatigue R53.82 Active 34104929 Problem Generalized social phobia F40.11 Active 67769462 Problem Restless leg syndrome G25.81 Active 13680336 Problem Moderate episode of recurrent major depressive disorder F33.1 Active 249164676 Problem Chronic post-traumatic stress disorder (PTSD) F43.12 Active 677681238 Problem History of renal cell carcinoma Z85.528 Active 430274257 Problem Chronic tension-type headache, intractable G44.221 Active 428953065 Problem Nodule of left lung R91.1 Active 076165010 Problem Hirsuties L68.0 Active 717056353 Problem FH: polycystic ovary Z84.2 Active 163137222 Problem Morbid (severe) obesity due to excess calories E66.01 Active 183729040 Problem Chronic pancreatitis K86.1 Active 986173545 Problem Hyperlipidemia, mixed E78.2 Active 477091005 Problem Asthma J45.909 Active 770324192 ALLERGIES Substance Reaction Event Type Date Status Penicillin V Potassium Unknown Drug Allergy Nov, Active Fentanyl Unknown Drug Allergy Nov, Active Demerol Unknown Drug Allergy Nov, Active ENCOUNTERS Encounter Location Date Diagnosis [facility] [address] [facility] [id number] [address] Feb, [facility] [address] [facility] [id number] [address] Jan, [facility] [address] [place] [address] 20720- 8357 Jan, [facility] [id number] [place] [address] 71644- 0714 Dec, [facility] [id number] [place] [address] 07034- 0422 Dec, Intestinal malabsorption, unspecified K90.9 and Diarrhea, unspecified R19.7 [facility] [id number] [place] [address] 77911- 3371 Dec, [facility] [id number] [place] [address] 06598- 1110 Dec, Strep throat J02.0 ; Intestinal malabsorption, unspecified K90.9 ; Diarrhea, unspecified R19.7 ; Postoperative seroma involving digestive system after non-digestive system procedure K91.873 ; Hyperlipidemia, mixed E78.2 and BMI 45.0-49.9, adult Z68.42 [facility] [id number] [place] [address] 55281- 3408 Dec, [facility] [id number] [place] [address] 67764- 1575 Dec, Nausea R11.0 [facility] [id number] [place] [address] 23590- 3699 Dec, [facility] [address] [place] [address] 66882 -4502 Dec, Sore throat J02.9 ; Strep throat J02.0 and BMI 45.0-49.9, adult Z68.42 [facility] [id number] [place] [address] 03307- 7531 Dec, [facility] [id number] [place] [address] 86621- 2790 Dec, [facility] [id number] [place] [address] 34685- 7589 Dec, [facility] [address] [address] 3309 Dec, [facility] [address] [address] 7875 Dec, [facility] [address] [address] 5445 Dec, [facility] [address] [place] [address] 03788- 5380 Dec, [facility] [address] [place] [address] 37948- 3987 Dec, [facility] [address] [address] Dec, Clostridium difficile colitis A04.72 ; Intractable vomiting with nausea, unspecified vomiting type R11.2 and BMI 45.0-49.9, adult Z68.42 [facility] [address] [address] 6139 Dec, [facility] [address] [address] 6758 Nov, [facility] [address] [address] 9750 Nov, [facility] [address] [address] 9742 Nov, [facility] [address] [address] 9728 Nov, [facility] [address] [address] Nov, [facility] [address] [address] 7793 Nov, Hyperlipidemia, mixed E78.2 [facility] [address] [address] Nov, Acute suppurative otitis media of right ear without spontaneous rupture of tympanic membrane, recurrence not specified H66.001 and BMI 45.0-49.9, adult Z68.42 [place] [address] [place] [address] 50315- 7680 Nov, Hyperlipidemia, mixed E78.2 [place] [id number] [place] [address] 74116- 2711 Nov, [place] [id number] [place] [address] 08906- 9879 Nov, [place] [id number] [place] [address] 07058- 2830 Nov, Nodule of left lung R91.1 [place] [id number] [place] [address] 07272- 9177 Nov, Medicare annual wellness visit, initial Z00.00 [...] adult Z68.42 and Encounter for immunization Z23 [place] [address] [place] [address] 78742- 8793 October, [place] [id number] [place] [address] 84392- 9701 October, Nodule of left lung R91.1 [place] [id number] [place] [address] 35653- 8386 October, Nodule of left lung R91.1 [place] [address] [place] [address] 19517- 3481 October, Recurrent major depressive disorder, in partial remission F33.41 ; Restless leg syndrome G25.81 ; Generalized social phobia F40.11 ; Chronic post-traumatic stress disorder (PTSD) F43.12 ; BMI 45.0-49.9, adult Z68.42 and Trichotillomania F63.3 [facility] [id number] [place] [address] 15709- 9931 October, [place] [address] 53952- 3271 Sep, Chronic fatigue R53.82 and BMI 45.0-49.9, adult Z68.42 [place] [address] 37390- 2699 Aug, [place] [address] 46487- 1186 Jul, Restless leg syndrome G25.81 and B12 deficiency E53.8 [place] [address] 69752- 9944 Jul, [place] [id number] [place] [address] 22083- 0245 Jul, [place] [id number] [place] [address] 98981- 1740 Jun, [place] [id number] [place] [address] 09847- 4877 Jun, Fatigue, unspecified type R53.83 ; History of renal cell carcinoma Z85.528 ; Chronic pancreatitis K86.1 ; Restless leg syndrome G25.81 ; Dark urine R82.99 and BMI 45.0-49.9, adult Z68.42 [place] [id number] [place] [address] 05005- 6336 Jun, [place] [id number] [place] [address] 02498- 2678 Jun, [place] [address] 54920- 4005 Jun, [place] [address] [address]- 7468 Jun, [place] [address] [place] [address] 26144- 1931 May, Chronic post-traumatic stress disorder (PTSD) F43.12 ; Moderate episode of recurrent major depressive disorder F33.1 ; Trichotillomania F63.3 and Generalized social phobia F40.11 [place] [address] [place] [address] 55130- 5593 May, [place] [address] [place] [address] 05101- 7048 May, Chronic post-traumatic stress disorder (PTSD) F43.12 ; Moderate episode of recurrent major depressive disorder F33.1 ; Trichotillomania F63.3 and Generalized social phobia F40.11 [place] [address] [place] [address] 73661- 9849 May, Hyperlipidemia, mixed E78.2 ; Morbid (severe) obesity due to excess calories E66.01 ; Chronic post-traumatic stress disorder (PTSD) F43.12 ; Moderate episode of recurrent major depressive disorder F33.1 ; Trichotillomania F63.3 and Generalized social phobia F40.11 [place] [address] [address]- 5814 Apr, [place] [address] [place] [address] 82845- 5280 Apr, Hyperlipidemia, mixed E78.2 ; Morbid (severe) obesity due to excess calories E66.01 ; Chronic post-traumatic stress disorder (PTSD) F43.12 ; Moderate episode of recurrent major depressive disorder F33.1 ; Trichotillomania F63.3 and Generalized social phobia F40.11 [place] [address] [address]- 4509 Apr, Trichotillomania F63.3 ; Generalized social phobia F40.11 ; Chronic post-traumatic stress disorder (PTSD) F43.12 and Moderate episode of recurrent major depressive disorder F33.1 [facility] [id number] [place] [address] 63952- 3915 Apr, [facility] [id number] [place] [address] 56276- 8599 Apr, [facility] [id number] [place] [address] 18345- 6677 Mar, Moderate episode of recurrent major depressive disorder F33.1 ; Trichotillomania F63.3 ; Chronic post-traumatic stress disorder (PTSD) F43.12 ; Generalized social phobia F40.11 and Restless leg syndrome G25.81 [place] [id number] [place] [address] 06798- 9896 Mar, [place] [address] 21182- 7631 Mar, [place] [id number] [place] [address] 54869- 5086 Feb, Left kidney mass N28.89 [place] [id number] [place] [address] 69445- 4918 Jan, [place] [id number] [place] [address] 21974- 8291 Dec, Polydipsia R63.1 ; Chronic pancreatitis K86.1 and Fatigue, unspecified type R53.83 [facility] [id number] [place] [address] 23694- 5213 Nov, [place] [id number] [place] [address] 47849- 2451 Nov, [place] [id number] [place] [address] 81524- 2320 Nov, Headache around the eyes R51 [place] [id number] [place] [address] 56910- 5243 Nov, [facility] [address] [place] [address] 06348- 6664 October, STD exposure Z20.2 [facility] [id number] [place] [address] 36344- 7118 October, STD exposure Z20.2 [facility] [id number] [place] [address] 26768- 3302 October, Chronic post-traumatic stress disorder (PTSD) F43.12 ; Generalized social phobia F40.11 ; Trichotillomania F63.3 and Restless leg syndrome G25.81 [place] [id number] [place] [address] 50185- 9960 October, [facility] [id number] [place] [address] 43918- 2194 Sep, [facility] [id number] [place] [address] 27646- 5431 Aug, [facility] [id number] [place] [address] 80459- 1748 Aug, [facility] [id number] [place] [address] 04846- 5569 Aug, Neck mass R22.1 [place] [id number] [place] [address] 26257- 1476 Aug, Atelectasis J98.11 [facility] [id number] [place] [address] 54021- 4044 28 Jul, 2016 Hyperlipidemia, mixed E78.2 ; Atypical pneumonia J18.9 and Neck mass R22.1 [facility] [id number] [place] [address] 94398- 4113 15 Jul, 2016 Hemoptysis R04.2 [facility] [id number] [place] [address] 36680- 2204 08 Jul, 2016 Acute non-recurrent pansinusitis J01.40 ; Hemoptysis R04.2 ; Polydipsia R63.1 and Malaise R53.81 [facility] [place] [id number] [place] [address] 57007 -4103 May, Other viral agents as the cause of diseases classified elsewhere B97.89 and Acute upper respiratory infection, unspecified J06.9 [facility] [place] [id number] [place] [address] 83997 -9482 Mar, Nausea R11.0 [facility] [place] [id number] [place] [address] 36428 -0772 Dec, Hives L50.9 [place] [address] 87162- 8117 Dec, [facility] [place] [id number] [place] [address] 07509 -2750 Dec, Cutaneous abscess of limb, unspecified L02.419 ; Cellulitis of unspecified part of limb L03.119 ; Encounter for incision and drainage procedure Z01.89 and Encounter for recheck of abscess following incision and drainage Z09 [facility] [place] [id number] [place] [address] 05111 -7980 Dec, Abscess of leg, right L02.415 [place] [id number] [place] [address] 89558- 3659 Dec, Cellulitis of unspecified part of limb L03.119 and Cutaneous abscess of limb, unspecified L02.419 [place] [id number] [place] [address] 88178- 5196 Dec, [place] [id number] [place] [address] 70487- 4027 Dec, [facility] [place] [id number] [place] [address] 96847 -1599 Aug, [place] [id number] [place] [address] 74440- 5277 Aug, [facility] [id number] [place] [address] 36316 -5141 04 Jul, 2015 Pain in unspecified wrist M25.539 and Back pain, thoracic M54.6 [facility] [id number] [place] [address] 05083 -8357 Jun, Strain of right wrist, initial encounter S66.911A [place] [address] 86325- 5682 Jun, Chronic pancreatitis, unspecified pancreatitis type K86.1 ; Hirsuties L68.0 ; Morbid (severe) obesity due to excess calories E66.01 ; Chronic pancreatitis K86.1 and Asthma J45.909 [place] [id number] [place] [address] 90250- 1973 May, [place] [address] 99021- 5969 May, Hyperlipidemia, mixed E78.2 and Muscle spasm of back M62.830 [place] [id number] [place] [address] 13234- 8032 Apr, [place] [address] 51173- 6701 Apr, Torticollis M43.6 [place] [id number] [place] [address] 78873- 8334 Apr, Right-sided thoracic back pain M54.6 [facility] [id number] [place] [address] 30090- 8967 Mar, Rash R21 [place] [address] 05956- 0623 Mar, [facility] [address] 56011- 1100 Jan, [place] [address] 96975- 8397 Dec, [place] [address] [address]- 3680 Dec, Urinary frequency 788.41 and Nocturia more than twice per night 788.43 [facility] [id number] [place] [address] 85212- 9560 Nov, [facility] [id number] [place] [address] 95191- 6896 Nov, [facility] [id number] [place] [address] 42068- 8785 Nov, Abdominal pain 789.00 [facility] [address] 17185- 7271 October, TDAP DX V06.1 [facility] [id number] [place] [address] 26510- 0283 October, [facility] [id number] [place] [address] 13427- 5352 October, Disturbance of skin sensation 782.0 ; Wrist pain, right 719.43 ; Hyperlipidemia 272.4 and Skin lesion of face 709.9 [facility] [id number] [place] [address] 09402- 8958 Sep, [facility] [id number] [place] [address] 65059- 5344 Sep, [facility] [id number] [place] [address] 78146- 9244 Aug, [facility] [id number] [place] [address] 17861- 6122 Aug, [facility] [id number] [place] [address] 13707- 2715 Aug, [facility] [id number] [place] [address] 48099- 6242 Aug, [facility] [id number] [place] [address] 42947- 3386 16 Aug, 2014 [facility] [place] [facility] [address] [id number] [place] [address]- 8484 16 Aug, 2014 [facility] [place] [facility] [address] [id number] [place] [address]- 0599 14 Aug, 2014 [facility] [place] [facility] [address] [id number] [place] [address]- 3905 14 Aug, 2014 [facility] [place] [facility] [address] [id number] [place] [address]- 3363 11 Aug, 2014 [facility] [place] [facility] [address] [id number] [place] [address]- 1585 11 Aug, 2014 [facility] [place] [facility] [address] [id number] [place] [address]- 3565 04 Aug, 2014 [facility] [place] [facility] [address] [id number] [place] [address]- 5743 04 Aug, 2014 [facility] [place] [facility] [address] [id number] [place] [address]- 4030 Aug, [facility] [place] [facility] [address] [id number] [place] [address]- 2675 Aug, [facility] [place] [facility] [address] [id number] [place] [address]- 1061 23 Jul, 2014 [facility] [place] [facility] [address] [id number] [place] [address]- 3307 23 Jul, 2014 [facility] [place] [facility] [address] [id number] [place] [address]- 5297 Jul, 2014 [facility] [place] [facility] [address] [id number] [place] [address]- 0729 Jul, 2014 [facility] [place] [facility] [address] [id number] [place] [address]- 5108 Jul, 2014 [facility] [place] [facility] [address] [id number] [place] [address]- 4144 04 Jul, 2014 [facility] [place] [facility] [address] [id number] [place] [address]- 4606 Jun, [facility] [address] [id number] [place] [address]- 9382 Jun, [facility] [place] [facility] [address] [id number] [place] [address]- 4046 Jun, [facility] [address] [id number] [place] [address]- 2260 Jun, [facility] [place] [facility] [address] [id number] [place] [address]- 8796 Jun, [facility] [place] [facility] [address] [id number] [place] [address]- 8451 Jun, [facility] [place] [facility] [address] [id number] [place] [address]- 7304 Jun, [facility] [place] [facility] [address] [id number] [place] [address] Jun, [facility] [address] [id number] [place] [address] May, [facility] [place] [facility] [address] [id number] [place] [address] May, [facility] [place] [facility] [address] [id number] [place] [address] 18 May, 2014 [facility] [place] [facility] [address] [id number] [place] [address] 18 May, 2014 [facility] [place] [facility] [address] [id number] [place] [address] 15 May, 2014 [facility] [place] [facility] [address] [id number] [place] [address] 15 May, 2014 [facility] [place] [facility] [address] [id number] [place] [address] May, [facility] [place] [facility] [address] [id number] [place] [address] May, [facility] [place] [facility] [address] [id number] [place] [address] May, [facility] [place] [facility] [address] [id number] [place] [address] May, [facility] [place] [facility] [address] [id number] [place] [address] May, [facility] [place] [facility] [address] [id number] [place] [address] May, [facility] [place] [facility] [address] [id number] [place] [address] Apr, [facility] [place] [facility] [address] [id number] [place] [address] Apr, [facility] [place] [facility] [address] [id number] [place] [address] Apr, [facility] [place] [facility] [address] [id number] [place] [address] Apr, [facility] [place] [facility] [address] [id number] [place] [address]- [address] Apr, [facility] [place] [facility] [address] [id number] [place] [address] Apr, [facility] [place] [facility] [address] [id number] [place] [address] Apr, [facility] [place] [facility] [address] [id number] [address] Apr, [facility] [place] [facility] [address] [id number] [place] [address] Apr, [facility] [place] [facility] [address] [id number] [place] [address] Apr, [facility] [place] [facility] [address] [id number] [place] [address] Apr, [facility] [place] [facility] [address] [id number] [place] [address] Apr, [facility] [place] [facility] [address] [id number] [place] [address] Mar, [facility] [place] [facility] [address] [id number] [place] [address] 14 Mar, 2014 [facility] [place] [facility] [address] [id number] [place] [address] Mar, [facility] [place] [facility] [address] [id number] [place] [address] Mar, [facility] [place] [facility] [address] [id number] [place] [address] 10 Feb, 2014 [facility] [place] [facility] [address] [id number] [place] [address] 10 Feb, 2013 [facility] [place] [facility] [address] [id number] [place] [address] 05 Feb, 2013 [facility] [place] [facility] [address] [id number] [place] [address] 05 Feb, 2013 [facility] [place] [facility] [address] [id number] [place] [address] 05 Feb, 2013 [facility] [place] [facility] [address] [id number] [place] [address] 05 Feb, 2013 [facility] [place] [facility] [address] [id number] [place] [address] 2140 Jan, [facility] [place] [facility] [address] [id number] [place] [address]- 4165 Jan, [facility] [place] [facility] [address] [id number] [place] [address]- 5271 Jan, [facility] [place] [facility] [address] [id number] [place] [address]- 3498 Jan, [facility] [place] [facility] [address] [id number] [place] [address]- 6883 Jan, [facility] [place] [facility] [address] [id number] [place] [address] 9529 Jan, [facility] [place] [facility] [address] [id number] [place] [address] 3779 Jan, [facility] [place] [facility] [address] [id number] [place] [address]- 6751 Jan, [facility] [place] [facility] [address] [id number] [place] [address]- 4175 Jan, [facility] [place] [facility] [address] [id number] [place] [address]- 6750 Jan, [facility] [place] [facility] [address] [id number] [place] [address]- 8661 Jan, [facility] [place] [facility] [address] [id number] [place] [address]- 8395 Jan, [facility] [place] [facility] [address] [id number] [place] [address]- 2486 Jan, [facility] [place] [facility] [address] [id number] [place] [address]- 9779 Jan, [facility] [place] [facility] [address] [id number] [place] [address]- 2783 Dec, [facility] [place] [facility] [address] [id number] [place] [address]- 3222 Dec, [facility] [place] [facility] [address] [id number] [place] [address]- 9304 Dec, [facility] [place] [facility] [address] [id number] [place] [address]- 2702 Dec, [facility] [place] [facility] [address] [id number] [place] [address]- 4302 Nov, [facility] [place] [facility] [address] [id number] [place] [address]- 0500 Nov, [facility] [place] [facility] [address] [id number] [place] [address]- 1049 Nov, [facility] [place] [facility] [address] [id number] [place] [address]- 2506 Nov, [facility] [place] [facility] [address] [id number] [place] [address]- 5926 Nov, [facility] [place] [facility] [address] [id number] [place] [address]- 7571 October, [facility] [place] [facility] [address] [id number] [place] [address]- 7639 October, [facility] [place] [facility] [address] [id number] [place] [address]- 8536 October, [facility] [place] [facility] [address] [id number] [place] [address]- 0306 October, [facility] [place] [facility] [address] [id number] [place] [address]- 4012 October, [facility] [place] [facility] [address] [id number] [place] [address]- 4680 October, [facility] [place] [facility] [address] [id number] [place] [address]- 1971 October, [facility] [place] [facility] [address] [id number] [place] [address]- 8737 October, [facility] [place] [facility] [address] [id number] [place] [address]- 9988 October, [facility] [place] [facility] [address] [id number] [place] [address]- 3555 October, [facility] [place] [facility] [address] [id number] [place] [address]- 6585 October, [facility] [place] [facility] [address] [id number] [place] [address]- 4026 October, [facility] [place] [facility] [address] [id number] [place] [address] October, [facility] [place] [facility] [address] [id number] [place] [address]- 3218 October, [facility] [address] [id number] [place] [address]- 2216 Sep, [facility] [address] [id number] [place] [address]- 7437 Sep, [facility] [address] [id number] [place] [address]- 3898 Sep, [facility] [place] [facility] [address] [id number] [place] [address]- 3787 Sep, [facility] [address] [id number] [place] [address]- 7987 Sep, [facility] [address] [id number] [place] [address]- 7428 Sep, [facility] [address] [id number] [place] [address]- 9348 Sep, [facility] [address] [id number] [place] [address]- 9890 Sep, [facility] [place] [facility] [address] [id number] [place] [address]- 0073 Sep, [facility] [address] [id number] [place] [address]- 3563 Sep, [facility] [place] [facility] [address] [id number] [place] [address]- 5100 Sep, [facility] [place] [facility] [address] [id number] [place] [address]- 9884 Sep, [facility] [place] [facility] [address] [id number] [place] [address]- 5743 Sep, [facility] [place] [facility] [address] [id number] [place] [address]- 8971 Sep, [facility] [place] [facility] [address] [id number] [place] [address]- 9284 Sep, [facility] [place] [facility] [address] [id number] [place] [address]- 0712 Aug, [facility] [place] [facility] [address] [id number] [place] [address]- 9871 Aug, [facility] [place] [facility] [address] [id number] [place] [address]- 3337 Aug, [facility] [place] [facility] [address] [id number] [place] [address]- 4115 Aug, [facility] [place] [facility] [address] [id number] [place] [address]- 0522 Jul, [facility] [place] [facility] [address] [id number] [place] [address]- 0688 Jul, [facility] [place] [facility] [address] [id number] [place] [address]- 1651 Jul, [facility] [place] [facility] [address] [id number] [place] [address]- 5664 Jul, [facility] [place] [facility] [address] [id number] [place] [address]- 4366 Jun, [facility] [place] [facility] [address] [id number] [place] [address]- 2075 Jun, [facility] [place] [facility] [address] [id number] [place] [address]- 6754 Jun, [facility] [place] [facility] [address] [id number] [place] [address]- 5116 Jun, [facility] [place] [facility] [address] [id number] [place] [address]- 5075 Jun, [facility] [place] [facility] [address] [id number] [place] [address]- 1957 Jun, [facility] [place] [facility] [address] [id number] [place] [address]- 2146 Jun, [facility] [place] [facility] [address] [id number] [place] [address]- 1350 08 Jun, 2013 [facility] [address] [id number] [place] [address] 20 May, 2013 [facility] [address] [id number] [place] [address]45 20 May, 2013 [facility] [address] [id number] [place] [address]- 3148 18 May, 2013 [facility] [address] [id number] [place] [address]- 9552 18 May, 2013 [facility] [address] [id number] [place] [address]79 17 May, 2013 [facility] [address] [id number] [place] [id number] 17 May, 2013 [facility] [address] [id number] [place] [address]- 0913 17 May, 2013 [facility] [address] [id number] [place] [address]- 1779 17 May, 2013 [facility] [address] [id number] [place] [address]- 8606 16 May, 2013 [facility] [address] [id number] [place] [address]- 8031 16 May, 2013 [facility] [address] [id number] [place] [address]- 1282 14 May, 2013 [facility] [place] [facility] [address] [id number] [place] [address]- 2649 14 May, 2013 [facility] [address] [id number] [place] [address] 13 May, 2013 [facility] [place] [facility] [address] [id number] [place] [address]- 0892 13 May, 2013 [facility] [place] [facility] [address] [facility] [id number] [place] [address]- 6492 12 May, 2013 [facility] [place] [facility] [address] [id number] [place] [address]- 8894 May, [facility] [place] [facility] [address] [id number] [place] [address]- 5087 May, [facility] [place] [facility] [address] [id number] [place] [address]- 6340 May, [facility] [place] [facility] [address] [id number] [place] [address]- 9845 Apr, [facility] [place] [facility] [address] [id number] [place] [address]- 0941 Apr, [facility] [place] [facility] [address] [id number] [place] [address]- 0507 Apr, [facility] [place] [facility] [address] [id number] [place] [address]- 9276 Apr, [facility] [place] [facility] [address] [id number] [place] [address]- 9380 Aug, [facility] [place] [facility] [address] [id number] [place] [address]- 3529 Aug, [facility] [place] [facility] [address] [id number] [place] [address]- 6133 Aug, [facility] [place] [facility] [address] [id number] [place] [address]- 9159 Aug, [facility] [place] [facility] [address] [id number] [place] [address]- 3074 Jul, [facility] [place] [facility] [address] [id number] [place] [address]- 4326 Jun, [facility] [place] [facility] [address] [id number] [place] [address]- 9335 Jun, [facility] [place] [facility] [address] [id number] [place] [address]- 2546 16 Jun, 2012 [facility] [place] [facility] [address] [id number] [place] [address]- 8166 Jun, [facility] [place] [facility] [address] [id number] [place] [address]- 0713 May, [facility] [place] [facility] [address] [id number] [place] [address]- 4414 May, [facility] [place] [facility] [address] [facility] [id number] [place] [address]- 6074 May, [facility] [place] [facility] [address] [id number] [place] [address]- 9185 May, [facility] [place] [facility] [address] [id number] [place] [address]- 3153 May, [facility] [place] [facility] [address] [id number] [place] [address]- 9637 May, [facility] [place] [facility] [address] [facility] [id number] [place] [address]- 1781 May, [facility] [place] [facility] [address] [id number] [place] [address]- 1747 Apr, [facility] [place] [facility] [address] [id number] [place] [address]- 2507 Apr, [facility] [place] [facility] [address] [facility] [id number] [place] [address]- 2088 Apr, [facility] [place] [facility] [address] [id number] [place] [address]- 0126 Apr, [facility] [place] [facility] [address] [id number] [place] [address]- 6736 Apr, [facility] [place] [facility] [address] [id number] [place] [address]- 5109 Apr, [facility] [place] [facility] [address] [facility] [id number] [place] [address]- 0146 Apr, [facility] [place] [facility] [address] [facility] [id number] [place] [address]- 5859 Mar, [facility] [place] [facility] [address] [id number] [place] [address]- 4735 Mar, [facility] [place] [facility] [address] [id number] [place] [address]- 8322 Mar, 2011 [facility] [place] [facility] [address] [id number] [place] [address]- 4792 Mar, 2011 [facility] [place] [facility] [address] [id number] [place] [address]- 8374 Mar, 2011 [facility] [place] [facility] [address] [id number] [place] [address]- 5092 Mar, 2011 [facility] [place] [facility] [address] [id number] [place] [address]- 8755 Mar, [facility] [place] [facility] [address] [id number] [place] [address]- 7214 Mar, [facility] [place] [facility] [address] [id number] [place] [address]- 7660 Mar, [facility] [place] [facility] [address] [id number] [place] [address]- 7605 Mar, [facility] [place] [facility] [address] [id number] [place] [address]- 2570 Mar, [facility] [place] [facility] [address] [id number] [place] [address]- 7749 Mar, [facility] [place] [facility] [address] [id number] [place] [address]- 2228 Feb, [facility] [place] [facility] [address] [id number] [place] [address]- 6991 Jan, [facility] [place] [facility] [address] [id number] [place] [address]- 0989 14 Jan, 2012 [facility] [place] [facility] [address] [id number] [place] [address]- 1926 Jan, [facility] [place] [facility] [address] [id number] [place] [address]- 8875 Jan, [facility] [place] [facility] [address] [id number] [place] [address]- 8080 Jan, [facility] [place] [facility] [address] [id number] [place] [address]- 4167 Dec, [facility] [place] [facility] [address] [id number] [place] [address]- 4845 Dec, [facility] [place] [facility] [address] [id number] [place] [address]- 2819 Nov, [facility] [address] [id number] [place] [address]- 8462 Nov, [facility] [place] [facility] [address] [id number] [place] [address]- 1232 Nov, [facility] [address] [id number] [place] [address]- 6089 October, [facility] [address] [id number] [place] [address]- 6367 October, [facility] [address] [id number] [place] [address]- 8906 October, [facility] [address] [id number] [place] [address]- 4369 October, [facility] [address] [id number] [place] [address]- 5448 October, [facility] [place] [facility] [address] [id number] [place] [address]- 1813 October, [facility] [place] [facility] [address] [id number] [place] [address]- 1520 October, [facility] [place] [facility] [address] [id number] [place] [address]- 3744 Sep, [facility] [place] [facility] [address] [id number] [place] [address]- 5002 Sep, [facility] [place] [facility] [address] [id number] [place] [address]- 0678 26 Sep, 2011 [facility] [place] [facility] [address] [id number] [place] [address]- 4226 25 Sep, 2011 [facility] [place] [facility] [address] [id number] [place] [address]- 0959 24 Sep, 2011 [facility] [place] [facility] [address] [id number] [place] [address]- 0207 19 Sep, 2011 [facility] [place] [facility] [address] [id number] [place] [address]- 0554 17 Sep, 2011 [facility] [place] [facility] [address] [id number] [place] [address]- 8871 16 Sep, 2011 [facility] [place] [facility] [address] [id number] [place] [address]- 8365 16 Sep, 2011 [facility] [place] [facility] [address] [id number] [place] [address]- 6458 14 Sep, 2011 [facility] [place] [facility] [address] [id number] [place] [address]- 8216 13 Sep, 2011 [facility] [place] [facility] [address] [id number] [place] [address]- 9237 10 Sep, 2011 [facility] [place] [facility] [address] [id number] [place] [address]- 5316 09 Sep, 2011 [facility] [place] [facility] [address] [id number] [place] [address]- 9109 27 Aug, 2011 [facility] [place] [facility] [address] [id number] [place] [address]- 4777 Aug, [facility] [place] [facility] [address] [id number] [place] [address]- 3235 08 Aug, 2011 [facility] [place] [facility] [address] [id number] [place] [address]- 2372 06 Aug, 2011 [facility] [place] [facility] [address] [id number] [place] [address]- 2832 28 Jul, 2011 [facility] [place] [facility] [address] [id number] [place] [address]- 1013 22 Jul, 2011 [facility] [address] [id number] [place] [address]- 3776 16 Jul, 2011 [facility] [place] [facility] [address] [id number] [place] [address]- 2546 15 Jul, 2011 [facility] [place] [facility] [address] [id number] [place] [address]- 4296 14 Jul, 2011 [facility] [place] [facility] [address] [id number] [place] [address]- 9885 10 Jul, 2011 [facility] [place] [facility] [address] [id number] [place] [address]- 5248 30 Jun, 2011 [facility] [address] [id number] [place] [address]- 8349 Jun, [facility] [address] [id number] [place] [address]- 4038 Jun, [facility] [address] [id number] [place] [address]- 5437 Jun, [facility] [address] [id number] [place] [address]- 0259 Jun, [facility] [address] [id number] [place] [address]- 7066 27 May, 2011 [facility] [address] [id number] [place] [address]- 9970 May, [facility] [place] [facility] [address] [id number] [place] [address]- 9480 14 May, 2011 [facility] [place] [facility] [address] [id number] [place] [address]- 3789 14 May, 2011 [facility] [place] [facility] [address] [id number] [place] [address]- 5436 12 May, 2011 [facility] [place] [facility] [address] [id number] [place] [address]- 0606 07 May, 2011 [facility] [place] [facility] [address] [id number] [place] 7251 May, [facility] [place] [facility] [address] [id number] [place] [address]- 7860 Apr, [facility] [place] [facility] [address] [id number] [place] [address]- 9726 Apr, [facility] [place] [facility] [address] [id number] [place] [address]- 7418 Apr, [facility] [place] [facility] [address] [id number] [place] [address]- 9070 Apr, [facility] [place] [facility] [address] [id number] [place] [address]- 1114 Apr, [facility] [place] [facility] [address] [id number] [place] [address]- 7808 Apr, [facility] [place] [facility] [address] [id number] [place] [address]- 6961 Mar, [facility] [place] [facility] [address] [id number] [place] [address] Mar, [facility] [place] [facility] [address] [id number] [place] [address] Mar, [facility] [place] [facility] [address] [id number] [address] Mar, [facility] [place] [facility] [address] [id number] [place] [address] Jan, [facility] [place] [facility] [address] [id number] [place] [address] Dec, [facility] [place] [facility] [address] [id number] [place] [address] Dec, [facility] [place] [facility] [address] [id number] [place] [address] October, [facility] [place] [facility] [address] [id number] [place] [address] 20 Sep, 2010 [facility] [address] [id number] [place] [address] 14 Sep, 2010 [facility] [place] [facility] [address] [id number] [place] [address] 17 Jul, 2010 [facility] [address] [id number] [place] [address] 16 Jul, 2010 [facility] [place] [facility] [address] [id number] [place] [address] 31 May, 2010 [facility] [address] [id number] [place] [address] 27 May, 2010 [facility] [address] [id number] [place] [address] 08 May, 2010 [facility] [place] [facility] [address] [id number] [place] [address]47 May, [facility] [address] [id number] [place] [address] Apr, [facility] [place] [facility] [address] [id number] [place] [address] Apr, [facility] [address] [id number] [place] [address] Apr, [facility] [place] [facility] [address] [id number] [place] [address] Apr, [facility] [place] [facility] [address] [id number] [place] [address] Apr, [facility] [place] [facility] [address] [id number] [place] [address] 21 Mar, 2010 [facility] [place] [facility] [address] [id number] [place] [address] 14 Mar, 2010 [facility] [place] [facility] [address] [id number] [place] [address] 13 Mar, 2010 [facility] [address] [facility] [id number] [place] [address] Mar, [facility] [address] [facility] [id number] [place] [address] Jan, [facility] [address] [facility] [id number] [place] [address] Dec, [facility] [address] [facility] [id number] [place] [address] Sep, [facility] [address] [facility] [id number] [place] [address] May, [facility] [address] [facility] [id number] [place] [address] May, [facility] [id number] [address] May, [facility] [address] [id number] [place] [address] Apr, [facility] [address] [facility] [id number] [place] [address] Apr, [facility] [address] [id number] [place] [address] Apr, [facility] [address] [facility] [id number] [place] [address] Apr, [facility] [address] [facility] [id number] [place] [address] Apr, [facility] [address] [facility] [id number] [place] [address] Mar, [facility] [address] [facility] [id number] [place] [address] Mar, [facility] [address] [facility] [id number] [place] [address] Jul, IMMUNIZATIONS No Known Immunizations SOCIAL HISTORY Never Assessed REASON FOR VISIT ear ache/headache Pt c/o headaches since and earache and unsteadiness since Saturday along with cough JOVANI Solis PLAN OF CARE Activity Details Follow Up prn Reason: VITAL SIGNS Height 62 in 2017-11-26 Weight 253.6 lbs 2017-11-26 Temperature 97.5 degrees Fahrenheit 2017-11-26 Heart Rate 90 bpm 2017-11-26 Respiratory Rate 20 2017-11-26 BMI 46.38 kg/m2 2017-11-26 Blood pressure systolic 136 mmHg 2017-11-26 Blood pressure diastolic 76 mmHg 2017-11-26 MEDICATIONS Medication Instructions Dosage Frequency Start Date End Date Duration Status Ondansetron HCl 8 mg 1 tablet by Oral route every 8 hours PRN Jul, Active Estradiol 0.5 MG Orally Once a day 2 tablet by Oral route 1 time per day 24h Apr, Active Doxycycline Hyclate 100 MG Orally every 12 hrs 1 capsule 12h Active VanishPoint Syringe 23G X 1 as directed Jul, Not-Taking Hydrocodone-Acetaminophen 5-325 MG Orally every 6 hrs 1 tablet as needed 6h Active Prozac 40 mg Orally Once a day for depression 1 capsules Active Cefdinir 300 MG Orally every 12 hrs 1 capsule 12h Nov, Nov, 10 day(s) Active Vitamin D 01677 UNIT Orally per day 1 capsule Active Esoterica Regular 2 % Not-Taking Ropinirole HCl 4 MG Orally Once a day 1 tablet before bedtime 24h 30 days Active RESULTS No Results PROCEDURES Procedure Date Ordered Result Body Site [facility] VISIT ESTABLISHED PATIENT November 26, 2017 INSTRUCTIONS MEDICATIONS ADMINISTERED No Known Medications [...] cholecystectomy Surgical History Right knee scope- Dr. Gnozalez 11/2015 Surgical History right knee scope 05/2016 Surgical History abdominal cyst removed Surgical History Ovaries removed Surgical History Ts & As Surgical History ventral incisional hernia repair- Dr. Daniel 08/2017 Surgical History nephrectomy 03/2017 Hospitalization History [facility]ulitis-[facility] 12/20/15 Hospitalization History [facility] [place]- Abd pain 03/07/2017 Hospitalization History [facility] [place]- Abd pain 03/14/2017 Hospitalization History [facility] [place]- No bowel movement, rash 04/13/2017 Hospitalization History [facility] [place]- Abd pain r/t kidney surgery on 04/17/2017 Hospitalization History [facility] [place]- Abd pain r/t kidney surgery on 04/18/2017 Hospitalization History [facility] [place]- Lower abd pain 04/30/2017 Hospitalization History [facility] [place]- Cannot urinate 05/30/2017 Hospitalization History [facility] [place]- Pancreatitis Sx 06/29/2017 Hospitalization History [facility] [place]- Stomach pain 07/22/2017 Hospitalization History [facility] [place]- Left side pain 08/12/2017 Hospitalization History [facility] [place]- Incision site infection 08/30/2017 Hospitalization History [facility]- Post Op Seroma/Hematoma Left Abdomen. Discharged 09/04/17- Dr Daniel 09/02/2017 Hospitalization History [facility] [place]- Right shoulder and back pain 2017 Hospitalization History ED [place]- Shoulder/Back pain 11/11/2017 Hospitalization History ED [place]- Right shoulder blade pain 12/04/2017 Hospitalization History [facility]- C-Diff 12/13/2017 Hospitalization History C diff et MRSA 12/27/2017
--- OUTSIDE RECORDS SUMMARY | 2018-02-13 11:03 | XMS REPORT ---
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 Role Phone MARCIO GIBBSY Unavailable PROBLEMS Type Condition ICD9-CM Code TOM44-DG Code Onset Dates Condition Status SNOMED Code Problem Polydipsia R63.1 Active 61576239 Problem Trichotillomania F63.3 Active 72446018 Problem Atelectasis J98.11 Active 23950690 Problem Intestinal malabsorption, unspecified K90.9 Active 73231776 Problem Chronic fatigue R53.82 Active 83523216 Problem Generalized social phobia F40.11 Active 77701037 Problem Restless leg syndrome G25.81 Active 55808274 Problem Moderate episode of recurrent major depressive disorder F33.1 Active 143107597 Problem Chronic post-traumatic stress disorder (PTSD) F43.12 Active 623784082 Problem History of renal cell carcinoma Z85.528 Active 571144900 Problem Chronic tension-type headache, intractable G44.221 Active 610142482 Problem Nodule of left lung R91.1 Active 052541945 Problem Hirsuties L68.0 Active 878938248 Problem FH: polycystic ovary Z84.2 Active 223118498 Problem Morbid (severe) obesity due to excess calories E66.01 Active 421303037 Problem Chronic pancreatitis K86.1 Active 039252756 Problem Hyperlipidemia, mixed E78.2 Active 933551280 Problem Asthma J45.909 Active 590150651 ALLERGIES No Information ENCOUNTERS Encounter Location Date Diagnosis [facility] [id number] [address] Feb, [facility] [id number] [address] 7[address] Jan, [facility] [id number] [address] 6[address] Jan, [facility] [address], [place] [address] 4330 Dec, [facility] [id number] [place] [address] 91725- 8691 Dec, Intestinal malabsorption, unspecified K90.9 and Diarrhea, unspecified R19.7 [facility] [id number] [place] [address] 21922- 3156 Dec, [facility] [id number] [place] [address] 70866- 6929 Dec, Strep throat J02.0 ; Intestinal malabsorption, unspecified K90.9 ; Diarrhea, unspecified R19.7 ; Postoperative seroma involving digestive system after non-digestive system procedure K91.873 ; Hyperlipidemia, mixed E78.2 and BMI 45.0-49.9, adult Z68.42 [facility] [id number] [place] [address] 64310- 4937 Dec, [facility] [id number] [place] [address] 70859- 7603 Dec, Nausea R11.0 [facility] [id number] [place] [address] 31012- 1030 Dec, [facility] [address], [place] [address] Dec, Sore throat J02.9 ; Strep throat J02.0 and BMI 45.0-49.9, adult Z68.42 [facility] [address], [place] [address]- 2894 Dec, [facility] [id number] [place] [address] 94368- 8103 Dec, [facility] [address], [place] [address]- 3701 Dec, [facility] [id number] [place] [address] 15125- 1803 Dec, [facility] [address], [place] [address]- 5032 Dec, [facility] [id number] [place] [address] 47707- 9372 Dec, [facility] [id number] [place] [address] 03106- 5872 Dec, [facility] [id number] [place] [address] 43915- 6332 Dec, [facility] [id number] [place] [address] 67750- 9238 Dec, Clostridium difficile colitis A04.72 ; Intractable vomiting with nausea, unspecified vomiting type R11.2 and BMI 45.0-49.9, adult Z68.42 [facility] [id number] [place] [address] 93042- 4616 Dec, [facility] [id number] [address]- 3284 Nov, [facility] [id number] [place] [address] 64053- 6510 Nov, [facility] [id number] [place] [address] 23646- 2869 Nov, [facility] [id number] [place] [address] 15081- 3681 Nov, [facility] [address], [place] [address] Nov, [facility] [id number] [place] [address] 60376- 3814 Nov, Hyperlipidemia, mixed E78.[address] [facility] [address], [place] [address] Nov, Acute suppurative otitis media of right ear without spontaneous rupture of tympanic membrane, recurrence not specified H66.001 and BMI 45.0-49.9, adult Z68.42 [address], [place] [address]- 3027 Nov, Hyperlipidemia, mixed E78.2 [address] [id number] [place] [address] 67438- 5945 Nov, [place] [id number] [place] [address] 82240- 7036 Nov, [address] [place] [id number] [place] [address] 35566- 4627 Nov, Nodule of left lung R91.1 [id number] [place] [address] 18215- 5070 Nov, Medicare annual wellness visit, initial Z00.00 [...] and Encounter for immunization Z23 [address] [id number] [place] [address] 72375- 7302 October, [address] [place] [id number] [place] [address] 69728- 1803 October, Nodule of left lung R91.1 [place] [id number] [place] [address] 51129- 9455 October, Nodule of left lung R91.1 [address] [place] [address] [place] [address] 18087- 6309 October, Recurrent major depressive disorder, in partial remission F33.41 ; Restless leg syndrome G25.81 ; Generalized social phobia F40.11 ; Chronic post-traumatic stress disorder (PTSD) F43.12 ; BMI 45.0-49.9, adult Z68.42 and Trichotillomania F63.3 [place] [place] [id number] [place] [address] 71229- 3421 October, [facility] [id number] [place] [address] 14608- 6983 Sep, Chronic fatigue R53.82 and BMI 45.0-49.9, adult Z68.42 [place] [id number] [place] [address] 42322- 8218 Aug, [address] [id number] [place] [address] 56157- 4283 Jul, Restless leg syndrome G25.81 and B12 deficiency E53.8 [address] [place] 06401- 6732 Jul, [address] [place] [address] 83575- 0896 Jul, [place] [id number] [place] [address] 19274- 7011 Jun, [place] [id number] [place] [address] 05155- 3272 Jun, Fatigue, unspecified type R53.83 ; History of renal cell carcinoma Z85.528 ; Chronic pancreatitis K86.1 ; Restless leg syndrome G25.81 ; Dark urine R82.99 and BMI 45.0-49.9, adult Z68.42 [place] [id number] [place] [address] 63947- 3763 Jun, [address] [place] 35846- 0110 Jun, [facility] [id number] [place] [address] 58976- 7455 Jun, [place] [id number] [place] [address] 82873- 9654 Jun, [address] [place], [place] [address]- 8808 May, Chronic post-traumatic stress disorder (PTSD) F43.12 ; Moderate episode of recurrent major depressive disorder F33.1 ; Trichotillomania F63.3 and Generalized social phobia F40.11 [place] [place] [id number] [place] [address] 31062- 3040 May, [address] [id number] [place] [address] 71939- 2802 May, Chronic post-traumatic stress disorder (PTSD) F43.12 ; Moderate episode of recurrent major depressive disorder F33.1 ; Trichotillomania F63.3 and Generalized social phobia F40.11 [address] [place] [address] 03391- 2196 May, Hyperlipidemia, mixed E78.2 ; Morbid (severe) obesity due to excess calories E66.01 ; Chronic post-traumatic stress disorder (PTSD) F43.12 ; Moderate episode of recurrent major depressive disorder F33.1 ; Trichotillomania F63.3 and Generalized social phobia F40.11 [id number] [place] [address] 57583- 7731 Apr, [address] [place] [place] [address] 06670- 7018 Apr, Hyperlipidemia, mixed E78.2 ; Morbid (severe) obesity due to excess calories E66.01 ; Chronic post-traumatic stress disorder (PTSD) F43.12 ; Moderate episode of recurrent major depressive disorder F33.1 ; Trichotillomania F63.3 and Generalized social phobia F40.11 [address] [place] [id number] [place] [address] 34435- 3783 Apr, Trichotillomania F63.3 ; Generalized social phobia F40.11 ; Chronic post-traumatic stress disorder (PTSD) F43.12 and Moderate episode of recurrent major depressive disorder F33.1 [place] [id number] [place] [address] 43155- 0255 Apr, [facility] [id number] [place] [address] 29235- 5429 Apr, [facility] [id number] [place] [address] 12315- 8518 Mar, Moderate episode of recurrent major depressive disorder F33.1 ; Trichotillomania F63.3 ; Chronic post-traumatic stress disorder (PTSD) F43.12 ; Generalized social phobia F40.11 and Restless leg syndrome G25.81 [facility] [id number] [place] [address] 40070- 3783 Mar, [facility] [id number] [place] [address] 72615- 5688 Mar, [address] [id number] [place] [address] 51357- 8828 Feb, Left kidney mass N28.89 [facility] [id number] [place] [address] 11413- 1495 Jan, [facility] [id number] [place] [address] 47255- 6412 Dec, Polydipsia R63.1 ; Chronic pancreatitis K86.1 and Fatigue, unspecified type R53.83 [address] [place] [id number] [place] [address] 25692- 1753 Nov, [facility] [id number] [place] [address] 52368- 0438 Nov, [facility] [id number] [place] [address] 25158- 7346 Nov, Headache around the eyes R51 [facility] [id number] [place] [address] 13326- 1306 Nov, [facility] [id number] [place] [address] 29349- 4416 October, STD exposure Z20.2 [facility] [id number] [place] [address] 64068- 1741 October, STD exposure Z20.2 [address] [place] [id number] [place] [address] 78561- 6728 October, Chronic post-traumatic stress disorder (PTSD) F43.12 ; Generalized social phobia F40.11 ; Trichotillomania F63.3 and Restless leg syndrome G25.81 [facility] [id number] [place] [address] 39001- 5078 October, [address] [id number] [place] [address] 23221- 1801 Sep, [facility] [id number] [place] [address] 75295- 7617 Aug, [address] [id number] [place] [address] 80287- 8503 Aug, [facility] [id number] [place] [address] 56079- 8347 Aug, Neck mass R22.1 [place] [id number] [place] [address] 36912- 9560 Aug, Atelectasis J98.11 [place] [id number] [place] [address] 42561- 2255 28 Jul, 2016 Hyperlipidemia, mixed E78.2 ; Atypical pneumonia J18.9 and Neck mass R22.1 [address] [place] [place] [address] 02547- 7981 15 Jul, 2016 Hemoptysis R04.2 [place] [id number] [place] [address] 57636- 8386 08 Jul, 2016 Acute non-recurrent pansinusitis J01.40 ; Hemoptysis R04.2 ; Polydipsia R63.1 and Malaise R53.[address] [facility] [id number] [place] [address] 46240 -4546 May, Other viral agents as the cause of diseases classified elsewhere B97.89 and Acute upper respiratory infection, unspecified J06.9 [facility] [id number] [place] [address] 05030 -3784 Mar, Nausea R11.0 [facility] [id number] [place] [address] 78013 -1643 Dec, Hives L50.9 [address] [place] 12587- 5519 Dec, [facility] [address] 28829 -1759 Dec, Cutaneous abscess of limb, unspecified L02.419 ; Cellulitis of unspecified part of limb L03.119 ; Encounter for incision and drainage procedure Z01.89 and Encounter for recheck of abscess following incision and drainage Z09 [facility] [id number] [place] [address] 88601 -7129 Dec, Abscess of leg, right L02.415 [id number] [place] [address] 70434- 4732 Dec, Cellulitis of unspecified part of limb L03.119 and Cutaneous abscess of limb, unspecified L02.419 [address] [place] [id number] [place] [address] 87464- 0828 Dec, [place] [id number] [place] [address] 04855- 1960 Dec, [facility] [id number] [place] [address] 54930 -3277 Aug, [address] [id number] [place] [address] 98451- 7765 Aug, [facility] [id number] [place] [address] 87612 -7245 Jul, Pain in unspecified wrist M25.539 and Back pain, thoracic M54.6 [facility] [address] [place] [address] 59857 -1164 Jun, Strain of right wrist, initial encounter S66.911A [facility] [id number] [place] [address] 84101- 1927 11 Jun, 2015 Chronic pancreatitis, unspecified pancreatitis type K86.1 ; Hirsuties L68.0 ; Morbid (severe) obesity due to excess calories E66.01 ; Chronic pancreatitis K86.1 and Asthma J45.909 [facility] [id number] [place] [address] 40017- 4322 May, [address] [place] [address] 06533- 8591 May, Hyperlipidemia, mixed E78.2 and Muscle spasm of back M62.830 [address] [place] 11749- 7799 Apr, [place] [id number] [place] [address] 19305- 6592 Apr, Torticollis M43.6 [facility] [id number] [place] [address] 86812- 6559 Apr, Right-sided thoracic back pain M54.6 [facility] [id number] [place] [address] 84837- 1487 Mar, Rash R21 [facility] [id number] [place] [address] 73832- 3132 Mar, [place] [id number] [place] [address] 96430- 3706 Jan, [facility] [address] 14861- 5668 Dec, [facility] [id number] [place] [address] 14417- 4122 Dec, Urinary frequency 788.41 and Nocturia more than twice per night 788.43 [facility] [address], [place] [address]- 7617 Nov, [facility] [address] [place] [address] 36745- 6138 Nov, [facility] [id number] [place] [address] 24337- 8551 Nov, Abdominal pain 789.00 [facility] [id number] [place] [address] 91611- 2007 October, TDAP DX V06.1 [facility] [id number] [place] [address] 11468- 2866 October, [facility] [id number] [place] [address] 64209- 6133 October, Disturbance of skin sensation 782.0 ; Wrist pain, right 719.43 ; Hyperlipidemia 272.4 and Skin lesion of face 709.9 [facility] [address] [place] [address] 42084- 9739 Sep, [facility] [id number] [place] [address] 45186- 9009 Sep, [facility] [address] [address]- 3509 Aug, [facility] [address], [place] [address]- 8827 Aug, [facility] [address], [place] [address]- 7812 Aug, [facility] [id number] [place] [address] 16492- 7965 Aug, [facility] [address] [address]- 1062 Aug, [facility] [id number] [place] [address] 29593- 0769 Aug, [facility] [place] [facility] [address] [id number] [place] [address]- 0078 14 Aug, 2014 [facility] [place] [facility] [address] [id number] [place] [address]- 7679 14 Aug, 2014 [facility] [place] [facility] [address] [id number] [place] [address]- 4685 Aug, [facility] [place] [facility] [address] [id number] [place] [address]- 0733 Aug, [facility] [place] [facility] [address] [id number] [place] [address]- 8415 Aug, [facility] [place] [facility] [address] [id number] [place] [address]- 6591 Aug, [facility] [place] [facility] [address] [id number] [place] [address]- 5575 Aug, [facility] [place] [facility] [address] [id number] [place] [address]- 4660 Aug, [facility] [place] [facility] [address] [id number] [place] [address]- 1042 Jul, [facility] [place] [facility] [address] [id number] [place] [address]- 1915 Jul, 2014 [facility] [place] [facility] [address] [id number] [place] [address]- 1489 Jul, 2014 [facility] [place] [facility] [address] [id number] [place] [address]- 4188 Jul, 2014 [facility] [place] [facility] [address] [id number] [place] [address]- 6683 Jul, [facility] [place] [facility] [address] [id number] [place] [address]- 9303 Jul, [facility] [place] [facility] [address] [id number] [place] [address]- 4101 Jun, [facility] [place] [facility] [address] [id number] [place] [address]- 0737 Jun, [facility] [address] [id number] [place] [address]- 7487 Jun, [facility] [address] [id number] [place] [address]- 2810 Jun, [facility] [address] [id number] [place] [address]- 7376 Jun, [facility] [address] [id number] [place] [address]- 4315 Jun, [facility] [address] [id number] [place] [address]- 9917 Jun, [facility] [address] [id number] [place] [address]- 3731 Jun, [facility] [address] [id number] [place] [address]- 4305 May, [facility] [address] [id number] [place] [address]- 9489 May, [facility] [address] [id number] [place] [address]- 1530 18 May, 2014 [facility] [address] [id number] [place] [address]- 0389 18 May, 2014 [facility] [place] [facility] [address] [id number] [place] [address]- 7339 15 May, 2014 [facility] [address] [id number] [place] [address]- 2298 15 May, 2014 [facility] [place] [facility] [address] [id number] [place] [address]- 4945 May, [facility] [place] [facility] [address] [id number] [place] [address]- 2989 May, [facility] [place] [facility] [address] [id number] [place] [address]- 4986 May, [facility] [place] [facility] [address] [id number] [place] [address]- 8236 May, [facility] [place] [facility] [address] [id number] [place] [address]- 3731 May, [facility] [place] [facility] [address] [id number] [place] [address]- 6406 May, [facility] [place] [facility] [address] [id number] [place] [address]- 4681 Apr, [facility] [place] [facility] [address] [id number] [place] [address]- 4034 Apr, [facility] [place] [facility] [address] [id number] [place] [address]- 6526 Apr, [facility] [place] [facility] [address] [id number] [place] [address]- 6841 Apr, [facility] [place] [facility] [address] [id number] [place] [address]- 6974 Apr, [facility] [place] [facility] [address] [id number] [place] [address]- 4894 Apr, [facility] [place] [facility] [address] [id number] [place] [address]- 3348 Apr, [facility] [place] [facility] [address] [id number] [place] [address]- 4309 Apr, [facility] [place] [facility] [address] [id number], [place] [address]- 7410 Apr, [facility] [place] [facility] [address] [id number] [place] [address]- 8539 Apr, [facility] [place] [facility] [address] [id number] [place] [address] Apr, [facility] [place] [facility] [address] [id number], [place] [address] Apr, [facility] [place] [facility] [address] [id number], [place] [address] Mar, [facility] [place] [facility] [address] [id number] [place] [address] Mar, [facility] [place] [facility] [address] [id number] [place] [address] Mar, [facility] [place] [facility] [address] [id number] [place] [address] Mar, [facility] [place] [facility] [address] [id number] [place] [address] Feb, [facility] [place] [facility] [address] [id number] [place] [address] Feb, [facility] [place] [facility] [address] [id number] [place] [address] 05 Feb, 2014 [facility] [place] [facility] [address] [id number] [place] [address] Feb, [facility] [place] [facility] [address] [id number] [place] [address] Feb, [facility] [place] [facility] [address] [id number] [place] [address] Feb, [facility] [place] [facility] [address] [id number] [place] [address] Jan, [facility] [place] [facility] [address] [id number] [place] [address] Jan, [facility] [place] [facility] [address] [id number] [place] [address] Jan, [facility] [place] [facility] [address] [id number] [place] [address] Jan, [facility] [place] [facility] [address] [id number] [place] [address] Jan, [facility] [place] [facility] [address] [id number] [place] [address] Jan, [facility] [place] [facility] [address] [id number] [place] [address] Jan, 2013 [facility] [place] [facility] [address] [id number] [place] [address] Jan, [facility] [place] [facility] [address] [id number] [place] [address] Jan, [facility] [place] [facility] [address] [id number] [place] [address] Jan, [facility] [place] [facility] [address] [id number] [place] [address] Jan, [facility] [place] [facility] [address] [id number] [place] [address] Jan, [facility] [place] [facility] [address] [id number] [place] [address] Jan, [facility] [place] [facility] [address] [id number] [place] [address] Jan, [facility] [place] [facility] [address] [id number] [place] [address] Dec, [facility] [place] [facility] [address] [id number] [place] [address] Dec, [facility] [place] [facility] [address] [id number] [place] [address] Dec, [facility] [place] [facility] [address] [id number] [place] [address] Dec, [facility] [place] [facility] [address] [id number] [place] [address] Nov, [facility] [place] [facility] [address] [id number] [place] [address] Nov, [facility] [place] [facility] [address] [id number] [place] [address] Nov, [facility] [place] [facility] [address] [id number] [place] [address] Nov, [facility] [place] [facility] [address] [id number] [place] [address] Nov, [facility] [place] [facility] [address] [id number] [place] [address] October, [facility] [place] [facility] [address] [id number] [place] [address] October, [facility] [place] [facility] [address] [id number] [place] [address] October, [facility] [place] [facility] [address] [address] [id number] [place] [address] October, [facility] [place] [facility] [address] [id number] [place] [address] October, [facility] [place] [facility] [address] [id number] [place] [address] 3958 October, [facility] [place] [facility] [address] [id number] [place] [address] 9912 October, [facility] [place] [facility] [address] [id number] [place] [address] 7057 October, [facility] [place] [facility] [address] [id number] [place] [address] 2987 October, [facility] [place] [facility] [address] [id number] [place] [address] 1549 October, [facility] [place] [facility] [address] [id number] [place] [address] 9344 October, [facility] [place] [facility] [address] [id number] [place] [address] 4186 October, [facility] [place] [facility] [address] [id number] [place] [address] 9082 October, [facility] [place] [facility] [address] [id number] [place] [address]- 3574 October, [facility] [place] [facility] [address] [id number] [place] [address] 3669 17 Sep, 2013 [facility] [place] [facility] [address] [id number] [place] [address] 6710 17 Sep, 2013 [facility] [place] [facility] [address] [id number] [place] [address] 7[address] Sep, [facility] [place] [facility] [address] [id number] [place] [address]- 0697 Sep, [facility] [place] [facility] [address] [id number] [place] [address]- 0100 Sep, [facility] [place] [facility] [address] [id number] [place] [address]- 4941 Sep, [facility] [place] [facility] [address] [id number] [place] [address]- 7931 Sep, [facility] [place] [facility] [address] [id number] [place] [address]- 4465 Sep, [facility] [place] [facility] [address] [id number] [place] [address]- 6951 Sep, [facility] [place] [facility] [address] [id number] [place] [address] 3226 Sep, [facility] [place] [facility] [address] [id number] [place] [address]- 5069 Sep, [facility] [place] [facility] [address] [id number] [place] [address]- 5063 Sep, [facility] [place] [facility] [address] [id number] [place] [address]- 0202 Sep, [facility] [place] [facility] [address] [id number] [place] [address]- 7805 Sep, [facility] [place] [facility] [address] [id number] [place] [address]- 3064 Sep, [facility] [place] [facility] [address] [id number] [place] [address]- 2437 Aug, [facility] [place] [facility] [address] [id number] [place] [address]- 9233 Aug, [facility] [place] [facility] [address] [id number] [place] [address]- 4772 Aug, [facility] [place] [facility] [address] [id number] [place] [address]- 5238 Aug, [facility] [place] [facility] [address] [id number] [place] [address]- 9430 Jul, [facility] [place] [facility] [address] [id number] [place] [address]- 6560 Jul, [facility] [place] [facility] [address] [id number] [place] [address]- 6122 Jul, [facility] [place] [facility] [address] [id number] [place] [address]- 6129 Jul, [facility] [place] [facility] [address] [id number] [place] [address]- 2736 Jun, [facility] [place] [facility] [address] [id number] [place] [address]- 8368 Jun, [facility] [place] [facility] [address] [id number] [place] [address]- 8186 Jun, [facility] [place] [facility] [address] [id number] [place] [address]- 3907 Jun, [facility] [place] [facility] [address] [id number] [place] [address]- 3496 Jun, [facility] [place] [facility] [address] [id number] [place] [address]- 8455 Jun, [facility] [place] [facility] [address] [id number] [place] [address]- 1147 Jun, [facility] [place] [facility] [address] [id number] [place] [address]- 2655 Jun, [facility] [place] [facility] [address] [id number], [place] [address] 20 May, 2013 [facility] [address] [id number] [place] [address]- 7808 20 May, 2013 [facility] [address] [id number] [place] [address] 18 May, 2013 [facility] [address] [id number] [place] [address] 18 May, 2013 [facility] [address] [id number] [place] [address]- 7522 17 May, 2013 [facility] [address] [id number] [place] [id number] 17 May, 2013 [facility] [address] [id number] [place] [address]- 4345 17 May, 2013 [facility] [address] [id number] [place] [address]- 0090 17 May, 2013 [facility] [address] [id number] [place] [address]- 2703 16 May, 2013 [facility] [address] [id number] [place] [address]- 9059 16 May, 2013 [facility] [address] [id number] [place] [address]- 3419 14 May, 2013 [facility] [address] [id number] [place] [address]- 1710 14 May, 2013 [facility] [address] [id number] [place] [address]- 8456 13 May, 2013 [facility] [address] [id number] [place] [address]- 6219 13 May, 2013 [facility] [place] [facility] [address] [id number] [place] [address] 12 May, 2013 [facility] [address] [id number] [place] [address]- 9858 12 May, 2013 [facility] [place] [facility] [address] [id number] [place] [address]- 1176 May, [facility] [address] [id number] [place] [address]- 8061 May, [facility] [address] [id number] [place] [address]- 2862 Apr, [facility] [address] [id number] [place] [address]- 8877 Apr, [facility] [address] [id number] [place] [address]- 3223 Apr, [facility] [address] [id number] [place] [address]- 4054 Apr, [facility] [address] [id number] [place] [address]- 7733 Aug, [facility] [address] [id number] [place] [address]- 0062 Aug, [facility] [address] [id number] [place] [address]- 5977 Aug, [facility] [address] [id number] [place] [address]- 3517 Aug, [facility] [address] [id number] [place] [address]- 9539 Jul, [facility] [address] [id number] [place] [address]- 1258 Jun, [facility] [address] [id number] [place] [address]- 8653 Jun, [facility] [address] [id number] [place] [address]- 2546 Jun, [facility] [address] [id number] [place] [address]- 2546 Jun, [facility] [address] [id number] [place] [address]- 6824 May, [facility] [place] [facility] [address] [id number] [place] [address]- 3151 May, [facility] [place] [facility] [address] [id number] [place] [address]- 0731 May, [facility] [place] [facility] [address] [id number] [place] [address]38 May, [facility] [place] [facility] [address] [id number] [place] [address]- 5994 May, [facility] [place] [facility] [address] [id number] [place] [address]- 4253 May, [facility] [place] [facility] [address] [id number] [place] [address]- 7186 May, [facility] [place] [facility] [address] [facility] [id number] [place] [address]- 2354 Apr, [facility] [place] [facility] [address] [id number], [place] [address]- 8459 Apr, [facility] [place] [facility] [address] [id number] [place] [address]- 4552 Apr, [facility] [place] [facility] [address] [facility] [id number], [place] [address]- 2533 Apr, [facility] [place] [facility] [address] [id number], [place] [address]- 8822 Apr, [facility] [place] [facility] [address] [id number], [place] [address]- 3666 Apr, [facility] [place] [facility] [address] [id number], [place] [address]- 5959 Apr, [facility] [place] [facility] [address] [id number], [place] [address]- 2067 Mar, [facility] [place] [facility] [address] [id number], [place] [address]- 4554 Mar, [facility] [place] [facility] [address] [id number] [place] [address]- 4033 19 Mar, 2012 [facility] [place] [facility] [address] [id number] [place] [address]- 7916 Mar, 2011 [facility] [place] [facility] [address] [id number] [place] [address] Mar, [facility] [place] [facility] [address] [id number] [place] [address]- 5875 Mar, [facility] [place] [facility] [address] [id number] [place] [address]- 2751 Mar, [facility] [place] [facility] [address] [id number] [place] [address] Mar, [facility] [place] [facility] [address] [id number] [place] [address]- 1793 Mar, [facility] [place] [facility] [address] [id number] [place] [address]- 9980 Mar, [facility] [place] [facility] [address] [id number] [place] [address]- 5184 Mar, [facility] [place] [facility] [address] [id number] [place] [address]- 7097 Mar, [facility] [place] [facility] [address] [facility] [id number] [place] [address]- 6555 Feb, [facility] [place] [facility] [address] [id number] [place] [address]- 0056 Jan, [facility] [place] [facility] [address] [id number] [place] [address]- 5005 Jan, [facility] [place] [facility] [address] [id number] [place] [address]- 4670 Jan, [facility] [place] [facility] [address] [id number] [place] [address]- 3495 Jan, [facility] [place] [facility] [address] [facility] [id number] [place] [address]- 4525 Jan, [facility] [place] [facility] [address] [id number] [place] [address]- 5909 Dec, [facility] [place] [facility] [address] [id number] [place] [address]- 2462 Dec, [facility] [place] [facility] [address] [id number] [place] [address]- 8434 Nov, [facility] [place] [facility] [address] [id number] [place] [address]- 2089 Nov, [facility] [place] [facility] [address] [id number] [place] [address]- 7524 Nov, [facility] [place] [facility] [address] [id number] [place] [address]- 7769 October, [facility] [address] [id number] [place] [address]- 9498 October, [facility] [address] [id number] [place] [address]- 4186 October, [facility] [address] [id number] [place] [address]- 0319 October, [facility] [place] [facility] [address] [id number] [place] [address]- 1879 October, [facility] [place] [facility] [address] [id number] [place] [address]- 6679 October, [facility] [place] [facility] [address] [id number] [place] [address]- 9959 October, [facility] [place] [facility] [address] [id number] [place] [address]- 5129 Sep, [facility] [place] [facility] [address] [id number] [place] [address]- 5537 Sep, [facility] [place] [facility] [address] [id number] [place] [address]- 7536 Sep, [facility] [place] [facility] [address] [id number] [place] [address]- 0548 25 Sep, 2011 [facility] [place] [facility] [address] [id number] [place] [address]- 2983 24 Sep, 2011 [facility] [place] [facility] [address] [id number] [place] [address]- 5637 19 Sep, 2011 [facility] [place] [facility] [address] [id number] [place] [address]- 0021 17 Sep, 2011 [facility] [place] [facility] [address] [id number] [place] [address]- 0039 16 Sep, 2011 [facility] [place] [facility] [address] [id number] [place] [address]- 3179 16 Sep, 2011 [facility] [place] [facility] [address] [id number] [place] [address]- 2554 14 Sep, 2011 [facility] [place] [facility] [address] [id number] [place] [address]- 8070 13 Sep, 2011 [facility] [place] [facility] [address] [id number] [place] [address]- 1375 10 Sep, 2011 [facility] [place] [facility] [address] [id number] [place] [address]- 9969 09 Sep, 2011 [facility] [place] [facility] [address] [id number] [place] [address]- 7336 27 Aug, 2011 [facility] [place] [facility] [address] [id number] [place] [address]- 0601 12 Aug, 2011 [facility] [place] [facility] [address] [id number] [place] [address]- 5005 08 Aug, 2011 [facility] [place] [facility] [address] [id number] [place] [address]- 0018 06 Aug, 2011 [facility] [place] [facility] [address] [id number] [place] [address]- 6110 28 Jul, 2011 [facility] [place] [facility] [address] [id number] [place] [address]- 2803 Jul, [facility] [place] [facility] [address] [id number] [place] [address]- 8034 16 Jul, 2011 [facility] [address] [id number] [place] [address]- 6176 15 Jul, 2011 [facility] [place] [facility] [address] [id number] [place] [address]- 7166 14 Jul, 2011 [facility] [place] [facility] [address] [id number] [place] [address]- 2056 10 Jul, 2011 [facility] [place] [facility] [address] [id number] [place] [address]- 8551 30 Jun, 2011 [facility] [place] [facility] [address] [id number] [place] [address]- 8470 05 Jun, 2011 [facility] [address] [id number] [place] [address]- 0610 Jun, [facility] [address] [id number] [place] [address]- 3179 Jun, [facility] [address] [id number] [place] [address]- 7327 Jun, [facility] [address] [id number] [place] [address]- 0801 May, [facility] [address] [id number] [place] [address]- 8096 May, [facility] [place] [facility] [address] [id number] [place] [address]- 1306 14 May, 2011 [facility] [place] [facility] [address] [id number] [place] [address] 2547 14 May, 2011 [facility] [place] [facility] [address] [id number] [place] [address]- 8966 12 May, 2011 [facility] [place] [facility] [address] [id number] [place] [address] 2546 07 May, 2011 [facility] [place] [facility] [address] [id number] [place] [address]- 5386 May, [facility] [place] [facility] [address] [id number] [place] [address]- 7328 Apr, [facility] [place] [facility] [address] [id number] [place] [address]- 3236 Apr, [facility] [place] [facility] [address] [id number] [place] 4[address] Apr, [facility] [place] [facility] [address] [id number] [place] [address]- 9116 Apr, [facility] [place] [facility] [address] [id number] [place] [address]- 6392 Apr, [facility] [place] [facility] [address] [id number] [place] [address]- 6621 Apr, [facility] [place] [facility] [address] [id number] [place] [address]- 3299 Mar, [facility] [place] [facility] [address] [id number] [place] [address]- 9724 Mar, [facility] [place] [facility] [address] [id number] [place] [address]- 9946 Mar, [facility] [place] [facility] [address] [id number] [place] [address]- 7412 Mar, [facility] [place] [facility] [address] [id number], [place] [address]- 3125 Jan, [facility] [place] [facility] [address] [id number], [place] [address]- 1088 Dec, [facility] [place] [facility] [address] [id number] [place] [address]- 2484 Dec, [facility] [place] [facility] [address] [id number], [place] [address]- 6198 October, [facility] [place] [facility] [address] [id number] [place] [address]- 7974 Sep, [facility] [place] [facility] [address] [id number] [place] [address]- 4706 14 Sep, 2010 [facility] [address] [id number] [place] [address]- 6976 17 Jul, 2010 [facility] [address] [id number] [place] [address] 2546 16 Jul, 2010 [facility] [address] [id number] [place] [address]- 5986 31 May, 2010 [facility] [place] [facility] [address] [id number] [place] [address] 2549 27 May, 2010 [facility] [address] [id number] [place] [address], [place] [address]- 6966 08 May, 2010 [facility] [address] [id number] [place] [address]- 3635 06 May, 2010 [facility] [address] [id number] [place] [address]- 7020 Apr, [facility] [address] [id number] [place] [address]- 7778 Apr, [facility] [address] [id number] [place] [address]- 5532 Apr, [facility] [address] [facility] [id number] [place] [address]- 7243 18 Apr, 2010 [facility] [place] [facility] [address] [id number] [place] [address] 2549 Apr, [facility] [place] [facility] [address] [id number] [place] [address]- 2542 21 Mar, 2010 [facility] [place] [facility] [address] [id number] [place] [address]- 6036 14 Mar, 2010 [facility] [place] [facility] [address] [id number] [place] [address]- 2544 13 Mar, 2010 [facility] [place] [facility] [address] [id number] [place] [address]- 2717 Mar, [facility] [address] [facility] [id number], [place] [address]- 5932 Jan, [facility] [address] [facility] [id number] 3206 Dec, [facility] [id number] 5055 Sep, [facility] [id number], [place] [address]- 8773 May, [facility] [address] [facility] [id number] 3614 May, [facility] [id number] 4751 May, [facility] [id number], [place] [address]- 3016 Apr, [facility] [id number], [place] [address]- 7300 Apr, [facility] [id number], [place] [address]- 2273 Apr, [facility] [address] [id number], [place] [address]- 0952 Apr, [facility] [id number], [place] [address]- 0554 Apr, [facility] [address] [id number], [place] [address]- 8263 Mar, [facility] [address] [id number], [place] [address]- 3305 Mar, [facility] [address] [id number] [address]649 Jul, IMMUNIZATIONS No Known Immunizations SOCIAL HISTORY [...] 08/2017 Surgical History nephrectomy 03/2017 Hospitalization History [facility]ulitis-[facility] 12/20/15 Hospitalization History [facility] [place]- Abd pain 03/07/2017 Hospitalization History [facility] [place]- Abd pain 03/14/2017 Hospitalization History [facility] [place]- No bowel movement, rash 04/13/2017 Hospitalization History [facility] [place]- Abd pain r/t kidney surgery on 04/17/2017 Hospitalization History [facility] [place]- Abd pain r/t kidney surgery on 04/18/2017 Hospitalization History [facility] [place]- Lower abd pain 04/30/2017 Hospitalization History [facility] [place]- Cannot urinate 05/30/2017 Hospitalization History [facility] [place]- Pancreatitis Sx 06/29/2017 Hospitalization History [facility] [place]- Stomach pain 07/22/2017 Hospitalization History [facility] [place]- Left side pain 08/12/2017 Hospitalization History [facility] [place]- Incision site infection 08/30/2017 Hospitalization History [facility]- Post Op Seroma/Hematoma Left Abdomen. Discharged 09/04/17- Dr Daniel 09/02/2017 Hospitalization History [facility] [place]- Right shoulder and back pain 2017 Hospitalization History [facility] [place]- Shoulder/Back pain 11/11/2017 Hospitalization History [facility] [place]- Right shoulder blade pain 12/04/2017 Hospitalization History [facility] [place]- C-Diff 12/13/2017 Hospitalization History C diff et MRSA 12/27/2017
--- OUTSIDE RECORDS SUMMARY | 2018-02-13 11:04 | XMS REPORT ---
Author Author SAI CARMEN [facility] Address [address] [place] [address] Care Team Providers Care Printing Specialist Name Role Phone MARCIO GIBBSY Unavailable PROBLEMS Type Condition ICD9-CM Code [id number] Code Onset Dates Condition Status SNOMED Code Problem Polydipsia R63.1 Active 34929848 Problem Trichotillomania F63.3 Active 79888178 Problem Atelectasis J98.11 Active 45878018 Problem Intestinal malabsorption, unspecified K90.9 Active 46755579 Problem Chronic fatigue R53.82 Active 85615051 Problem Generalized social phobia F40.11 Active 57595401 Problem Restless leg syndrome G25.81 Active 04292912 Problem Moderate episode of recurrent major depressive disorder F33.1 Active 954963340 Problem Chronic post-traumatic stress disorder (PTSD) F43.12 Active 338777444 Problem History of renal cell carcinoma Z85.528 Active 619878940 Problem Chronic tension-type headache, intractable G44.221 Active 525671532 Problem Nodule of left lung R91.1 Active 319763550 Problem Hirsuties L68.0 Active 796137693 Problem FH: polycystic ovary Z84.2 Active 136985472 Problem Morbid (severe) obesity due to excess calories E66.01 Active 657836270 Problem Chronic pancreatitis K86.1 Active 992170906 Problem Hyperlipidemia, mixed E78.2 Active 121641497 Problem Asthma J45.909 Active 131001411 ALLERGIES No Information ENCOUNTERS Encounter Location Date Diagnosis [facility] [id number], [place] [address] Feb, [facility] [id number], [place] [address] Jan, [facility] [id number], [place] [address] 7[address] Jan, [facility] [address], [place] [address] 5[address] Dec, [facility] [id number] [place] [address] 88185- 1187 Dec, Intestinal malabsorption, unspecified K90.9 and Diarrhea, unspecified R19.7 [facility] [id number] [place] [address] 96304- 2550 Dec, [facility] [id number] [place] [address] 15204- 1107 Dec, Strep throat J02.0 ; Intestinal malabsorption, unspecified K90.9 ; Diarrhea, unspecified R19.7 ; Postoperative seroma involving digestive system after non-digestive system procedure K91.873 ; Hyperlipidemia, mixed E78.2 and BMI 45.0-49.9, adult Z68.42 [facility] [id number] [place] [address] 85644- 7176 Dec, [facility] [id number] [place] [address] 03164- 3160 Dec, Nausea R11.0 [facility] [id number] [place] [address] 40491- 5380 Dec, [facility] [address], [place] [address] Dec, Sore throat J02.9 ; Strep throat J02.0 and BMI 45.0-49.9, adult Z68.42 [facility] [address], [place] [address] 9483 Dec, [facility] [id number] [place] [address] 97795- 7491 Dec, [facility] [address], [place] [address]- 5075 Dec, [facility] [id number] [place] [address] 63448- 6725 Dec, [facility] [address], [place] [address]- 0614 Dec, [facility] [id number] [place] [address] 07975- 4634 Dec, [facility] [id number] [place] [address] 01681- 3842 Dec, [facility] [id number] [place] [address] 12595- 4863 Dec, [facility] [id number] [place] [address] 90766- 5937 Dec, Clostridium difficile colitis A04.72 ; Intractable vomiting with nausea, unspecified vomiting type R11.2 and BMI 45.0-49.9, adult Z68.42 [facility] [id number] [place] [address] 11008- 5388 Dec, [facility] [id number], [place] [address] 3548 Nov, [facility] [id number] [place] [address] 51719- 6062 Nov, [facility] [id number] [place] [address] 40772- 5806 Nov, [facility] [id number] [place] [address] 21946- 7136 Nov, [facility] [address], [place] [address] Nov, [facility] [id number] [place] [address] 17956- 6202 Nov, Hyperlipidemia, mixed E78.2 [facility] [address], [place] [address] Nov, Acute suppurative otitis media of right ear without spontaneous rupture of tympanic membrane, recurrence not specified H66.001 and BMI 45.0-49.9, adult Z68.42 [address] [place] [address], [place] [address]- 0408 Nov, Hyperlipidemia, mixed E78.2 [place] [id number] [place] [address] 60025- 1118 Nov, [place] [id number] [place] [address] 37655- 7830 Nov, [facility] [id number] [place] [address] 15748- 6405 Nov, Nodule of left lung R91.1 [id number] [place] [address] 47905- 6255 Nov, Medicare annual wellness visit, initial Z00.00 [...] adult Z68.42 and Encounter for immunization Z23 [place] [address] [place] [address] 45950- 2403 October, [place] [address] [place] [address] 34980- 7203 October, Nodule of left lung R91.1 [place] [id number] [place] [address] 63255- 0957 October, Nodule of left lung R91.1 [place] [address] [place] [address] 13749- 0757 October, Recurrent major depressive disorder, in partial remission F33.41 ; Restless leg syndrome G25.81 ; Generalized social phobia F40.11 ; Chronic post-traumatic stress disorder (PTSD) F43.12 ; BMI 45.0-49.9, adult Z68.42 and Trichotillomania F63.3 [place] [id number] [place] [address] 33510- 3638 October, [facility] [id number] [place] [address] 53737- 5130 Sep, Chronic fatigue R53.82 and BMI 45.0-49.9, adult Z68.42 [place] [id number] [place] [address] 30886- 4626 Aug, [place] [id number] [place] [address] 10667- 9981 Jul, Restless leg syndrome G25.81 and B12 deficiency E53.8 [place] [address] 18067- 4130 Jul, [place] [address] 52842- 5014 Jul, [place] [id number] [place] [address] 28186- 1599 Jun, [place] [id number] [place] [address] 15176- 4684 Jun, Fatigue, unspecified type R53.83 ; History of renal cell carcinoma Z85.528 ; Chronic pancreatitis K86.1 ; Restless leg syndrome G25.81 ; Dark urine R82.99 and BMI 45.0-49.9, adult Z68.42 [place] [id number] [place] [address] 28758- 0990 Jun, [address] [address] 30421- 1849 Jun, [facility] [id number] [place] [address] 23703- 5482 Jun, [place] [id number] [place] [address] 31118- 7631 Jun, [place] [address], [place] [address]- 1313 May, Chronic post-traumatic stress disorder (PTSD) F43.12 ; Moderate episode of recurrent major depressive disorder F33.1 ; Trichotillomania F63.3 and Generalized social phobia F40.11 [place] [id number] [place] [address] 37403- 4187 May, [place] [id number] [place] [address] 68272- 8954 May, Chronic post-traumatic stress disorder (PTSD) F43.12 ; Moderate episode of recurrent major depressive disorder F33.1 ; Trichotillomania F63.3 and Generalized social phobia F40.11 [place] [address] [place] [address] 06935- 3494 May, Hyperlipidemia, mixed E78.2 ; Morbid (severe) obesity due to excess calories E66.01 ; Chronic post-traumatic stress disorder (PTSD) F43.12 ; Moderate episode of recurrent major depressive disorder F33.1 ; Trichotillomania F63.3 and Generalized social phobia F40.11 [place] [address] [place] [address] 88535- 6841 Apr, [place] [address] [place] [address] 49490- 0565 Apr, Hyperlipidemia, mixed E78.2 ; Morbid (severe) obesity due to excess calories E66.01 ; Chronic post-traumatic stress disorder (PTSD) F43.12 ; Moderate episode of recurrent major depressive disorder F33.1 ; Trichotillomania F63.3 and Generalized social phobia F40.11 [place] [id number] [place] [address] 71015- 5067 Apr, Trichotillomania F63.3 ; Generalized social phobia F40.11 ; Chronic post-traumatic stress disorder (PTSD) F43.12 and Moderate episode of recurrent major depressive disorder F33.1 [place] [id number] [place] [address] 14817- 2114 Apr, [facility] [id number] [place] [address] 88390- 0866 Apr, [facility] [id number] [place] [address] 50739- 8987 Mar, Moderate episode of recurrent major depressive disorder F33.1 ; Trichotillomania F63.3 ; Chronic post-traumatic stress disorder (PTSD) F43.12 ; Generalized social phobia F40.11 and Restless leg syndrome G25.81 [facility] [id number] [place] [address] 03834- 1497 Mar, [facility] [id number] [place] [address] 86964- 9033 Mar, [place] [id number] [place] [address] 97818- 3152 Feb, Left kidney mass N28.89 [facility] [id number] [place] [address] 26322- 7119 Jan, [facility] [id number] [place] [address] 76972- 6735 Dec, Polydipsia R63.1 ; Chronic pancreatitis K86.1 and Fatigue, unspecified type R53.83 [place] [id number] [place] [address] 01504- 0068 Nov, [facility] [id number] [place] [address] 10746- 0358 Nov, [facility] [id number] [place] [address] 78739- 0461 Nov, Headache around the eyes R51 [facility] [id number] [place] [address] 91334- 3738 Nov, [facility] [id number] [place] [address] 71971- 3849 October, STD exposure Z20.2 [facility] [id number] [place] [address] 78267- 4062 October, STD exposure Z20.2 [address] [place] [id number] [place] [address] 42050- 8786 October, Chronic post-traumatic stress disorder (PTSD) F43.12 ; Generalized social phobia F40.11 ; Trichotillomania F63.3 and Restless leg syndrome G25.81 [facility] [id number] [place] [address] 16012- 1106 October, [place] [id number] [place] [address] 44578- 8603 Sep, [facility] [id number] [place] [address] 05420- 0262 Aug, [place] [id number] [place] [address] 80932- 2791 Aug, [facility] [id number] [place] [address] 27691- 6704 Aug, Neck mass R22.1 [place] [id number] [place] [address] 66889- 0696 Aug, Atelectasis J98.11 [place] [id number] [place] [address] 17617- 9970 28 Jul, 2016 Hyperlipidemia, mixed E78.2 ; Atypical pneumonia J18.9 and Neck mass R22.1 [address] [address] [place] [address] 46577- 9030 15 Jul, 2016 Hemoptysis R04.2 [place] [id number] [place] [address] 46762- 8529 08 Jul, 2016 Acute non-recurrent pansinusitis J01.40 ; Hemoptysis R04.2 ; Polydipsia R63.1 and Malaise R53.81 [facility] [id number] [place] [address] 84608 -1549 May, Other viral agents as the cause of diseases classified elsewhere B97.89 and Acute upper respiratory infection, unspecified J06.9 [facility] [place] [id number] [place] [address] 46889 -5915 Mar, Nausea R11.0 [facility] [id number] [place] [address] 01009 -8938 Dec, Hives L50.9 [place] [address] 47309- 5880 Dec, [facility] [address] 8[address]12 -6455 Dec, Cutaneous abscess of limb, unspecified L02.419 ; Cellulitis of unspecified part of limb L03.119 ; Encounter for incision and drainage procedure Z01.89 and Encounter for recheck of abscess following incision and drainage Z09 [facility] [id number] [place] [address] 35818 -7127 Dec, Abscess of leg, right L02.415 [id number] [place] [address] 88698- 9758 Dec, Cellulitis of unspecified part of limb L03.119 and Cutaneous abscess of limb, unspecified L02.419 [place] [id number] [place] [address] 30126- 4675 Dec, [place] [id number] [place] [address] 13365- 3688 Dec, [facility] [place] [id number] [place] [address] 47999 -7317 Aug, [place] [id number] [place] [address] 60045- 4143 Aug, [facility] [place] [id number] [place] [address] 66861 -3118 Jul, Pain in unspecified wrist M25.539 and Back pain, thoracic M54.6 [facility] [address] [place] [address] 24920 -7665 Jun, Strain of right wrist, initial encounter S66.911A [facility] [id number] [place] [address] 80191- 8569 11 Jun, 2015 Chronic pancreatitis, unspecified pancreatitis type K86.1 ; Hirsuties L68.0 ; Morbid (severe) obesity due to excess calories E66.01 ; Chronic pancreatitis K86.1 and Asthma J45.909 [facility] [id number] [place] [address] 58045- 2866 May, [place] [address] 84404- 0392 May, Hyperlipidemia, mixed E78.2 and Muscle spasm of back M62.830 [address] [address] 99387- 5766 Apr, [place] [id number] [place] [address] 41374- 7804 Apr, Torticollis M43.6 [facility] [id number] [place] [address] 23728- 9901 Apr, Right-sided thoracic back pain M54.6 [facility] [id number] [place] [address] 35004- 4788 Mar, Rash R21 [facility] [id number] [place] [address] 32532- 3538 Mar, [place] [id number] [place] [address] 92528- 8521 Jan, [facility] [address] 96421- 7520 Dec, [facility] [id number] [place] [address] 86006- 1808 Dec, Urinary frequency 788.41 and Nocturia more than twice per night 788.43 [facility] [address], [place] [address]- 3255 Nov, [facility] [address] [place] [address] 25093- 8452 Nov, [facility] [id number] [place] [address] 49542- 6840 Nov, Abdominal pain 789.00 [facility] [id number] [place] [address] 58404- 0324 October, TDAP DX V06.1 [facility] [id number] [place] [address] 43412- 9125 October, [facility] [id number] [place] [address] 88872- 4938 October, Disturbance of skin sensation 782.0 ; Wrist pain, right 719.43 ; Hyperlipidemia 272.4 and Skin lesion of face 709.9 [facility] [address] [place] [address] 97803- 5830 Sep, [facility] [id number] [place] [address] 69272- 2424 Sep, [facility] [address], [place] [address]- 3610 Aug, [facility] [address], [place] [address]- 7850 Aug, [facility] [address], [place] [address]- 4531 Aug, [facility] [id number] [place] [address] 12231- 8963 Aug, [facility] [address], [place] [address]- 8884 Aug, [facility] [id number] [place] [address] 01530- 9483 Aug, [facility] [place] [facility] [address] [id number] [place] [address]- 0522 14 Aug, 2014 [facility] [place] [facility] [address] [id number] [place] [address]- 5597 14 Aug, 2014 [facility] [place] [facility] [address] [id number] [place] [address]- 8180 Aug, [facility] [place] [facility] [address] [id number] [place] [address]- 1554 Aug, [facility] [place] [facility] [address] [id number] [place] [address]- 9199 Aug, [facility] [place] [facility] [address] [id number] [place] [address]- 6919 Aug, [facility] [place] [facility] [address] [id number] [place] [address]- 4549 Aug, [facility] [place] [facility] [address] [id number] [place] [address]- 3979 Aug, [facility] [place] [facility] [address] [id number] [place] [address]- 0921 Jul, [facility] [place] [facility] [address] [id number] [place] [address]- 6000 Jul, 2014 [facility] [place] [facility] [address] [id number] [place] [address]- 6845 Jul, 2014 [facility] [place] [facility] [address] [id number] [place] [address]- 6171 Jul, 2014 [facility] [place] [facility] [address] [id number] [place] [address]- 9169 Jul, [facility] [place] [facility] [address] [id number] [place] [address]- 4691 Jul, [facility] [place] [facility] [address] [id number] [place] [address]- 6081 Jun, [facility] [place] [facility] [address] [id number] [place] [address]- 5071 Jun, [facility] [address] [id number] [place] [address]- 0010 Jun, [facility] [address] [id number] [place] [address]- 4039 Jun, [facility] [address] [id number] [place] [address]- 2558 Jun, [facility] [address] [id number] [place] [address]- 1939 Jun, [facility] [address] [id number] [place] [address]- 3923 Jun, [facility] [address] [id number] [place] [address]- 7631 Jun, [facility] [address] [id number] [place] [address]- 4651 May, [facility] [address] [id number] [place] [address]- 0403 May, [facility] [address] [id number] [place] [address]- 7595 18 May, 2014 [facility] [address] [id number] [place] [address]- 6672 18 May, 2014 [facility] [place] [facility] [address] [id number] [place] [address]- 0930 15 May, 2014 [facility] [address] [id number] [place] [address]- 8928 15 May, 2014 [facility] [place] [facility] [address] [id number] [place] [address]- 4030 May, [facility] [place] [facility] [address] [id number] [place] [address]- 7574 May, [facility] [place] [facility] [address] [id number] [place] [address]- 0465 May, [facility] [place] [facility] [address] [id number] [place] [address]- 4655 May, [facility] [place] [facility] [address] [id number] [place] [address]- 4337 May, [facility] [place] [facility] [address] [id number] [place] [address]- 4075 May, [facility] [place] [facility] [address] [id number] [place] [address]- 9878 Apr, [facility] [place] [facility] [address] [id number] [place] [address]- 1392 Apr, [facility] [place] [facility] [address] [id number] [place] [address]- 7295 Apr, [facility] [place] [facility] [address] [id number] [place] [address]- 7620 Apr, [facility] [place] [facility] [address] [id number] [place] [address] Apr, [facility] [place] [facility] [address] [id number] [place] [address] Apr, [facility] [place] [facility] [address] [id number] [place] [address] Apr, [facility] [place] [facility] [address] [id number] [place] [address] Apr, [facility] [place] [facility] [address] [id number], [place] [address] Apr, [facility] [place] [facility] [address] [id number] [place] [address] Apr, [facility] [place] [facility] [address] [id number] [place] [address] Apr, [facility] [place] [facility] [address] [id number], [place] [address] Apr, [facility] [place] [facility] [address] [id number], [place] [address] Mar, [facility] [place] [facility] [address] [id number] [place] [address] Mar, [facility] [place] [facility] [address] [id number] [place] [address] Mar, [facility] [place] [facility] [address] [id number] [place] [address] Mar, [facility] [place] [facility] [address] [id number] [place] [address] Feb, [facility] [place] [facility] [address] [id number] [place] [address] Feb, [facility] [place] [facility] [address] [id number] [place] [address] 05 Feb, 2014 [facility] [place] [facility] [address] [id number] [place] [address] Feb, [facility] [place] [facility] [address] [id number] [place] [address] Feb, [facility] [place] [facility] [address] [id number] [place] [address] Feb, [facility] [place] [facility] [address] [id number] [place] [address] Jan, [facility] [place] [facility] [address] [id number] [place] [address] Jan, [facility] [place] [facility] [address] [id number] [place] [address] Jan, [facility] [place] [facility] [address] [id number] [place] [address] Jan, [facility] [place] [facility] [address] [id number] [place] [address] Jan, [facility] [place] [facility] [address] [id number] [place] [address] Jan, [facility] [place] [facility] [address] [id number] [place] [address] Jan, 2013 [facility] [place] [facility] [address] [id number] [place] [address] Jan, [facility] [place] [facility] [address] [id number] [place] [address] Jan, [facility] [place] [facility] [address] [id number] [place] [address] Jan, [facility] [place] [facility] [address] [id number] [place] [address] Jan, [facility] [place] [facility] [address] [id number] [place] [address] Jan, [facility] [place] [facility] [address] [id number] [place] [address] Jan, [facility] [place] [facility] [address] [id number] [place] [address] Jan, [facility] [place] [facility] [address] [id number] [place] [address] Dec, [facility] [place] [facility] [address] [id number] [place] [address] Dec, [facility] [facility] [address] [id number] [place] [address] Dec, [facility] [place] [facility] [address] [id number] [place] [address] 6061 Dec, [facility] [place] [facility] [address] [id number] [place] [address] 6[address] Nov, [facility] [place] [facility] [address] [id number] [place] [address] 5797 Nov, [facility] [place] [facility] [address] [id number] [place] [address] 4828 Nov, [facility] [place] [facility] [address] [id number] [place] [address] 6677 Nov, [facility] [place] [facility] [address] [id number] [place] [address]- 3990 Nov, [facility] [place] [facility] [address] [id number] [place] [address] 5702 October, [facility] [place] [facility] [address] [id number] [place] [address] 6503 October, [facility] [place] [facility] [address] [id number] [place] [address]- 9989 October, [facility] [place] [facility] [address] [id number] [place] [address] 4382 October, [facility] [place] [facility] [address] [id number] [place] [address]- 1146 October, [facility] [place] [facility] [address] [id number] [place] [address]- 2736 October, [facility] [place] [facility] [address] [id number] [place] [address]- 6126 October, [facility] [place] [facility] [address] [id number] [place] [address]- 6216 October, [facility] [place] [facility] [address] [id number] [place] [address]- 8133 October, [facility] [place] [address] [id number] [place] [address]- 4508 October, [facility] [place] [facility] [address] [id number] [place] [address]- 9713 October, [facility] [place] [facility] [address] [id number] [place] [address]- 1579 October, [facility] [place] [facility] [address] [id number] [place] [address]- 3092 October, [facility] [place] [facility] [address] [id number] [place] [address]- 8883 October, [facility] [place] [facility] [address] [id number] [place] [address]- 4855 17 Sep, 2013 [facility] [place] [address] [id number] [place] [address]- 3410 17 Sep, 2013 [facility] [place] [address] [id number] [place] [address]- 6552 Sep, [facility] [place] [address] [id number] [place] [address]- 7126 Sep, [facility] [place] [address] [id number] [place] [address]- 9577 Sep, [facility] [place] [address] [id number] [place] [address]- 1181 Sep, [facility] [place] [facility] [address] [id number] [place] [address]- 2541 Sep, [facility] [address] [id number] [place] [address]- 0750 Sep, [facility] [address] [id number] [place] [address]- 2901 Sep, [facility] [place] [facility] [address] [id number] [place] [address]- 4360 Sep, [facility] [address] [id number] [place] [address]- 8413 Sep, [facility] [address] [id number] [place] [address]- 9307 Sep, [facility] [place] [address] [id number] [place] [address]- 6238 Sep, [facility] [address] [id number] [place] [address]- 1571 Sep, [facility] [address] [id number] [place] [address]- 5388 Sep, [facility] [place] [address] [id number] [place] [address]- 6057 Aug, [facility] [address] [id number] [place] [address]- 9136 Aug, [facility] [address] [id number] [place] [address]- 7912 Aug, [facility] [address] [id number] [place] [address]- 8325 Aug, [facility] [address] [id number] [place] [address]- 7037 Jul, [facility] [address] [id number] [place] [address]- 7441 Jul, [facility] [address] [id number] [place] [address]- 9408 Jul, [facility] [address] [id number] [place] [address]- 4074 Jul, [facility] [address] [id number] [place] [address]- 4118 Jun, [facility] [address] [id number] [place] [address]- 3407 Jun, [facility] [address] [id number] [place] [address]- 9645 Jun, [facility] [address] [id number] [place] [address]- 7882 Jun, [facility] [address] [id number] [place] [address]- 9696 Jun, [facility] [address] [id number] [place] [address]- 6239 Jun, [facility] [address] [id number] [place] [address]- 8868 Jun, [facility] [address] [id number] [place] [address]- 6638 Jun, [facility] [address] [id number], [place] [address]- 9674 20 May, 2013 [facility] [address] [id number] [place] [address]- 9750 20 May, 2013 [facility] [address] [id number] [place] [address] 18 May, 2013 [facility] [address] [id number] [place] [address] 18 May, 2013 [facility] [address] [id number] [place] [address]- 8811 17 May, 2013 [facility] [address] [id number] [place] [id number] 17 May, 2013 [facility] [address] [id number] [place] [address]- 0204 17 May, 2013 [facility] [address] [id number] [place] [address]- 5988 17 May, 2013 [facility] [address] [id number] [place] [address]- 1370 16 May, 2013 [facility] [address] [id number] [place] [address]- 6987 16 May, 2013 [facility] [address] [id number] [place] [address]- 5867 14 May, 2013 [facility] [address] [id number] [place] [address]- 6891 14 May, 2013 [facility] [address] [id number] [place] [address]- 7777 13 May, 2013 [facility] [address] [id number] [place] [address]- 8377 13 May, 2013 [facility] [address] [id number] [place] [address]84 12 May, 2013 [facility] [address] [id number] [place] [address]- 1343 12 May, 2013 [facility] [address] [id number] [place] [address]- 0204 May, [facility] [address] [id number] [place] [address]- 3531 May, [facility] [address] [id number] [place] [address]- 4638 Apr, [facility] [address] [id number] [place] [address]- 1222 Apr, [facility] [address] [id number] [place] [address]- 5751 Apr, [facility] [address] [id number] [place] [address]- 6554 Apr, [facility] [address] [id number] [place] [address]- 0539 Aug, [facility] [address] [id number] [place] [address]- 8039 Aug, [facility] [address] [id number] [place] [address]- 9214 Aug, [facility] [address] [id number] [place] [address]- 8531 Aug, [facility] [address] [id number] [place] [address]- 5427 Jul, [facility] [address] [id number] [place] [address]- 9749 Jun, [facility] [address] [id number] [place] [address]- 4899 Jun, [facility] [address] [id number] [place] [address]- 2546 Jun, [facility] [address] [id number] [place] [address]- 2546 Jun, [facility] [address] [id number] [place] [address]- 4106 May, [facility] [address] [id number] [place] [address]- 7453 May, [facility] [address] [id number] [place] [address]- 2631 May, [facility] [address] [id number] [place] May, [facility] [address] [id number] [place] [address]- 2482 May, [facility] [address] [id number] [place] [address]- 0092 May, [facility] [address] [id number] [place] [address]- 4090 May, [facility] [address] [facility] [id number] [place] [address]- 6520 Apr, [facility] [address] [id number], [place] [address]- 8833 Apr, [facility] [address] [id number] [place] [address]- 4659 Apr, [facility] [address] [facility] [id number], [place] [address]- 1532 Apr, [facility] [address] [id number], [place] [address]- 0722 Apr, [facility] [address] [id number], [place] [address]- 4127 Apr, [facility] [address] [id number], [place] [address]- 4708 Apr, [facility] [address] [id number], [place] [address]- 6511 Mar, [facility] [address] [id number], [place] [address]- 8757 Mar, [facility] [address] [id number] [place] [address]- 7507 19 Mar, 2012 [facility] [address] [id number] [place] [address]- 4631 Mar, 2011 [facility] [address] [id number] [place] Mar, [facility] [address] [id number] [place] [address]- 0090 Mar, [facility] [address] [id number] [place] [address]- 4977 Mar, [facility] [address] [id number] [place]68 Mar, [facility] [address] [id number] [place] [address]- 1060 Mar, [facility] [address] [id number] [place] [address]- 8249 Mar, [facility] [address] [id number] [place] [address]- 7687 Mar, [facility] [address] [id number] [place] [address]- 4927 Mar, [facility] [address] [facility] [id number] [place] [address]- 6055 Feb, [facility] [address] [id number] [place] [address]- 2959 Jan, [facility] [address] [id number] [place] [address]- 8082 Jan, [facility] [address] [id number] [place] [address]- 5013 Jan, [facility] [address] [id number] [place] [address]- 8120 Jan, [facility] [address] [facility] [id number] [place] [address]- 8916 Jan, [facility] [address] [id number] [place] [address]- 6890 Dec, [facility] [address] [id number] [place] [address]- 6256 Dec, [facility] [address] [id number] [place] [address]- 0308 Nov, [facility] [address] [id number] [place] [address]- 3490 Nov, [facility] [address] [id number] [place] [address]- 6491 Nov, [facility] [address] [id number] [place] [address]- 0229 October, [facility] [address] [id number] [place] [address]- 9346 October, [facility] [address] [id number] [place] [address]- 2639 October, [facility] [address] [id number] [place] [address]- 2688 October, [facility] [address] [id number] [place] [address]- 8989 October, [facility] [address] [id number] [place] [address]- 8894 October, [facility] [address] [id number] [place] [address]- 2646 October, [facility] [address] [id number] [place] [address]- 4405 Sep, [facility] [facility] [address] [id number] [place] [address]- 3794 Sep, [facility] [address] [id number] [place] [address]- 0420 Sep, [facility] [address] [id number] [place] [address]- 1703 25 Sep, 2011 [facility] [facility] [address] [id number] [place] [address]- 0851 24 Sep, 2011 [facility] [facility] [address] [id number] [place] [address]- 0898 19 Sep, 2011 [facility] [address] [id number] [place] [address]- 8624 17 Sep, 2011 [facility] [place] [facility] [address] [id number] [place] [address]- 9956 16 Sep, 2011 [facility] [place] [facility] [address] [id number] [place] [address]- 1886 16 Sep, 2011 [facility] [place] [facility] [address] [id number] [place] [address]- 7835 14 Sep, 2011 [facility] [place] [facility] [address] [id number] [place] [address]- 2818 13 Sep, 2011 [facility] [place] [facility] [address] [id number] [place] [address]- 4269 10 Sep, 2011 [facility] [place] [facility] [address] [id number] [place] [address]- 6083 09 Sep, 2011 [facility] [place] [facility] [address] [id number] [place] [address]- 6250 27 Aug, 2011 [facility] [place] [facility] [address] [id number] [place] [address]- 7374 12 Aug, 2011 [facility] [place] [facility] [address] [id number] [place] [address]- 2500 08 Aug, 2011 [facility] [place] [facility] [address] [id number] [place] [address]- 0174 06 Aug, 2011 [facility] [place] [facility] [address] [id number] [place] [address]- 0225 28 Jul, 2011 [facility] [place] [facility] [address] [id number] [place] [address]- 2569 Jul, [facility] [place] [facility] [address] [id number] [place] [address]- 8628 16 Jul, 2011 [facility] [address] [id number] [place] [address]- 7056 15 Jul, 2011 [facility] [place] [facility] [address] [id number] [place] [address]- 3036 14 Jul, 2011 [facility] [place] [facility] [address] [id number] [place] [address]- 5566 10 Jul, 2011 [facility] [place] [facility] [address] [id number] [place] [address]- 4692 30 Jun, 2011 [facility] [place] [facility] [address] [id number] [place] [address]- 9164 05 Jun, 2011 [facility] [address] [id number] [place] [address]- 1489 Jun, [facility] [address] [id number] [place] [address]- 3226 Jun, [facility] [address] [id number] [place] [address]- 3335 Jun, [facility] [address] [id number] [place] [address]- 5874 May, [facility] [address] [id number] [place] [address]- 2508 May, [facility] [facility] [address] [id number] [place] [address]- 8756 14 May, 2011 [facility] [facility] [address] [id number] [place] [address] 254 14 May, 2011 [facility] [place] [facility] [address] [id number] [place] [address]- 2056 12 May, 2011 [facility] [facility] [address] [id number] [place] [address] 2546 07 May, 2011 [facility] [place] [facility] [address] [id number] [place] [address]- 4301 May, [facility] [place] [facility] [address] [id number] [place] [address]- 9938 Apr, [facility] [place] [facility] [address] [id number] [place] [address]- 0199 Apr, [facility] [place] [facility] [address] [id number] [place] 8370 Apr, [facility] [place] [facility] [address] [id number] [place] [address]- 9195 Apr, [facility] [place] [facility] [address] [id number] [place] [address]- 0373 Apr, [facility] [place] [facility] [address] [id number] [place] [address]- 2641 Apr, [facility] [place] [facility] [address] [id number] [place] [address]- 9352 Mar, [facility] [place] [facility] [address] [id number] [place] [address]- 4395 Mar, [facility] [place] [facility] [address] [id number] [place] [address]- 1452 Mar, [facility] [place] [facility] [address] [id number] [place] [address]- 3804 Mar, [facility] [place] [facility] [address] [id number], [place] [address]- 0116 Jan, [facility] [place] [facility] [address] [id number], [place] [address]- 8825 Dec, [facility] [place] [facility] [address] [id number] [place] [address]- 9640 Dec, [facility] [place] [facility] [address] [id number], [place] [address]- 4322 October, [facility] [place] [facility] [address] [id number] [place] [address]- 9055 Sep, [facility] [place] [facility] [address] [id number] [place] [address]- 5810 14 Sep, 2010 [facility] [address] [id number] [place] [address]- 0716 17 Jul, 2010 [facility] [address] [id number] [place] [address] 2546 16 Jul, 2010 [facility] [address] [id number] [place] [address]- 1256 31 May, 2010 [facility] [place] [facility] [address] [id number] [place] [address] 2548 27 May, 2010 [facility] [address] [id number] [place] [address], [place] [address] 7760 08 May, 2010 [facility] [address] [id number] [place] [address]- 0778 06 May, 2010 [facility] [address] [id number] [place] [address]- 5377 Apr, [facility] [address] [id number] [place] [address] Apr, [facility] [address] [id number] [place] [address] Apr, [facility] [address] [facility] [id number] [place] [address] 18 Apr, 2010 [facility] [place] [facility] [address] [id number] [place] [address] Apr, [facility] [place] [facility] [address] [id number] [place] [address] 21 Mar, 2010 [facility] [place] [facility] [address] [id number] [place] [address] 14 Mar, 2010 [facility] [place] [facility] [address] [id number] [place] [address] 13 Mar, 2010 [facility] [place] [facility] [address] [id number] [place] [address] Mar, [facility] [address] [facility] [id number], [place] [address] Jan, [facility] [address] [facility] [id number], [place] [address] Dec, [facility] [address] [facility] [id number], [place] [address] Sep, [facility] [address] [facility] [id number], [place] [address] May, [facility] [address] [facility] [id number], [place] [address] May, [facility] [address] [facility] [id number], [place] [address] May, [facility] [id number] [address] Apr, [facility] [id number], [place] [address] Apr, [facility] [id number], [place] [address] Apr, [facility] [address] [id number], [place] [address] Apr, [facility] [id number], [place] [address] Apr, [facility] [id number], [place] [address] Mar, [facility] [address] [id number] [address] Mar, [facility] [id number] [address] Jul, IMMUNIZATIONS No Known Immunizations SOCIAL HISTORY Never Assessed REASON FOR VISIT Lab (walk-in) PLAN OF CARE VITAL SIGNS MEDICATIONS Unknown Medications RESULTS No Results PROCEDURES Procedure Date Ordered Result Body Site LAB NOT BILLED BY [facility] November 26, 2017 INSTRUCTIONS MEDICATIONS ADMINISTERED No [...] 08/2017 Surgical History nephrectomy 03/2017 Hospitalization History Cellulitis-[facility] 12/20/15 [facility] History [facility]- Abd pain 03/07/2017 Hospitalization History [facility]- Abd pain 03/14/2017 Hospitalization History [facility]- No bowel movement, rash 04/13/2017 Hospitalization History [facility]- Abd pain r/t kidney surgery on 04/17/2017 Hospitalization History [facility]- Abd pain r/t kidney surgery on 04/18/2017 Hospitalization History [facility]- Lower abd pain 04/30/2017 Hospitalization History ED [facility]- Cannot urinate 05/30/2017 Hospitalization History [facility]- Pancreatitis Sx 06/29/2017 Hospitalization History [facility]- Stomach pain 07/22/2017 Hospitalization History [facility]- Left side pain 08/12/2017 Hospitalization History [facility]- Incision site infection 08/30/2017 [facility]/Hematoma Left Abdomen. Discharged 09/04/17- Dr Daniel 09/02/2017 Hospitalization History ED [facility]- Right shoulder and back pain 2017 Hospitalization History ED [facility]- Shoulder/Back pain 11/11/2017 Hospitalization History [facility]- Right shoulder blade pain 12/04/2017 Hospitalization History ED [facility]- C-Diff 12/13/2017 Hospitalization History C diff et MRSA 12/27/2017
--- OUTSIDE RECORDS SUMMARY | 2018-02-13 11:05 | XMS REPORT ---
Author Author SAI CARMEN [facility] Address [address] [place] [address] Care Team Providers Care Cistern Room Working Supervisor Name Role Phone MARCIO GIBBSY Unavailable PROBLEMS Type Condition ICD9-CM Code MIU27-TD Code Onset Dates Condition Status SNOMED Code Problem Polydipsia R63.1 Active 08200122 Problem Trichotillomania F63.3 Active 03863200 Problem Atelectasis J98.11 Active 30475035 Problem Intestinal malabsorption, unspecified K90.9 Active 16756013 Problem Chronic fatigue R53.82 Active 32476099 Problem Generalized social phobia F40.11 Active 58871684 Problem Restless leg syndrome G25.81 Active 68029046 Problem Moderate episode of recurrent major depressive disorder F33.1 Active 811570171 Problem Chronic post-traumatic stress disorder (PTSD) F43.12 Active 500652108 Problem History of renal cell carcinoma Z85.528 Active 156297291 Problem Chronic tension-type headache, intractable G44.221 Active 110963456 Problem Nodule of left lung R91.1 Active 847852385 Problem Hirsuties L68.0 Active 510797354 Problem FH: polycystic ovary Z84.2 Active 006344322 Problem Morbid (severe) obesity due to excess calories E66.01 Active 058462428 Problem Chronic pancreatitis K86.1 Active 291888654 Problem Hyperlipidemia, mixed E78.2 Active 941004394 Problem Asthma J45.909 Active 435535882 ALLERGIES No Information ENCOUNTERS Encounter Location Date Diagnosis [facility] [id number] [address] Feb, [facility] [id number] [address] 9967 Jan, [facility] [id number] [address] 6820 Jan, [facility] [address] [address] 3[address] Dec, [facility] [id number] [place] [address] 12078- 8795 Dec, Intestinal malabsorption, unspecified K90.9 and Diarrhea, unspecified R19.7 [facility] [id number] [place] [address] 06760- 3629 Dec, [facility] [id number] [place] [address] 80517- 9046 Dec, Strep throat J02.0 ; Intestinal malabsorption, unspecified K90.9 ; Diarrhea, unspecified R19.7 ; Postoperative seroma involving digestive system after non-digestive system procedure K91.873 ; Hyperlipidemia, mixed E78.2 and BMI 45.0-49.9, adult Z68.42 [facility] [id number] [place] [address] 33715- 2486 Dec, [facility] [id number] [place] [address] 93998- 1988 Dec, Nausea R11.0 [facility] [id number] [place] [address] 85505- 8602 Dec, [facility] [address] [address] Dec, Sore throat J02.9 ; Strep throat J02.0 and BMI 45.0-49.9, adult Z68.42 [facility] [address], [place] [address] 3526 Dec, [facility] [id number] [place] [address] 33655- 5222 Dec, [facility] [address], [place] [address]- 6078 Dec, [facility] [id number] [place] [address] 38047- 9184 Dec, [facility] [address], [place] [address]- 3286 Dec, [facility] [id number] [place] [address] 57142- 7433 Dec, [facility] [id number] [place] [address] 53597- 3932 Dec, [facility] [id number] [place] [address] 74275- 5151 Dec, [facility] [id number] [place] [address] 14551- 7313 Dec, Clostridium difficile colitis A04.72 ; Intractable vomiting with nausea, unspecified vomiting type R11.2 and BMI 45.0-49.9, adult Z68.42 [facility] [id number] [place] [address] 98994- 1839 Dec, [facility] [id number] [address] 4628 Nov, [facility] [id number] [place] [address] 30471- 9548 Nov, [facility] [id number] [place] [address] 61626- 4948 Nov, [facility] [id number] [place] [address] 53666- 1285 Nov, [facility] [address], [place] [address] Nov, [facility] [id number] [place] [address] 15940- 1090 Nov, Hyperlipidemia, mixed E78.2 [facility] [address], [place] [address] Nov, Acute suppurative otitis media of right ear without spontaneous rupture of tympanic membrane, recurrence not specified H66.001 and BMI 45.0-49.9, adult Z68.42 [address] [address], [place] [address]- 7186 Nov, Hyperlipidemia, mixed E78.2 [address] [place] [address] [place] [address] 92629- 4060 Nov, [address] [id number] [place] [address] 54428- 0159 Nov, [address] [id number] [place] [address] 25336- 2765 Nov, Nodule of left lung R91.1 [id number] [place] [address] 65084- 2167 Nov, Medicare annual wellness visit, initial Z00.00 [...] adult Z68.42 and Encounter for immunization Z23 [address] [place] [place] [address] 33977- 5424 October, [address] [place] [place] [address] 02271- 8168 October, Nodule of left lung R91.1 [address] [id number] [place] [address] 19907- 6353 October, Nodule of left lung R91.1 [address] [place] [address] [place] [address] 20593- 2026 October, Recurrent major depressive disorder, in partial remission F33.41 ; Restless leg syndrome G25.81 ; Generalized social phobia F40.11 ; Chronic post-traumatic stress disorder (PTSD) F43.12 ; BMI 45.0-49.9, adult Z68.42 and Trichotillomania F63.3 [address] [id number] [place] [address] 04540- 6080 October, [facility] [id number] [place] [address] 74649- 9551 Sep, Chronic fatigue R53.82 and BMI 45.0-49.9, adult Z68.42 [address] [id number] [place] [address] 49567- 8281 Aug, [id number] [place] [address] 63628- 4879 Jul, Restless leg syndrome G25.81 and B12 deficiency E53.8 [address] [address] 90883- 0173 Jul, [address] 77120- 5478 Jul, [address] [id number] [place] [address] 45865- 3791 Jun, [id number] [place] [address] 51266- 1173 Jun, Fatigue, unspecified type R53.83 ; History of renal cell carcinoma Z85.528 ; Chronic pancreatitis K86.1 ; Restless leg syndrome G25.81 ; Dark urine R82.99 and BMI 45.0-49.9, adult Z68.42 [address] [id number] [place] [address] 07195- 8496 Jun, [address] 60837- 4821 Jun, [facility] [id number] [place] [address] 40069- 3184 Jun, [id number] [place] [address] 28165- 7293 Jun, [address] [place], [place] [address]- 6089 May, Chronic post-traumatic stress disorder (PTSD) F43.12 ; Moderate episode of recurrent major depressive disorder F33.1 ; Trichotillomania F63.3 and Generalized social phobia F40.11 [address] [id number] [place] [address] 18030- 7138 May, [address] [id number] [place] [address] 05696- 3112 May, Chronic post-traumatic stress disorder (PTSD) F43.12 ; Moderate episode of recurrent major depressive disorder F33.1 ; Trichotillomania F63.3 and Generalized social phobia F40.11 [address] [place] [address] 90809- 5703 May, Hyperlipidemia, mixed E78.2 ; Morbid (severe) obesity due to excess calories E66.01 ; Chronic post-traumatic stress disorder (PTSD) F43.12 ; Moderate episode of recurrent major depressive disorder F33.1 ; Trichotillomania F63.3 and Generalized social phobia F40.11 [address] [place] [address] 56086- 3134 Apr, [address] [place] [address] 93018- 0754 Apr, Hyperlipidemia, mixed E78.2 ; Morbid (severe) obesity due to excess calories E66.01 ; Chronic post-traumatic stress disorder (PTSD) F43.12 ; Moderate episode of recurrent major depressive disorder F33.1 ; Trichotillomania F63.3 and Generalized social phobia F40.11 [address] [id number] [place] [address] 12273- 7137 Apr, Trichotillomania F63.3 ; Generalized social phobia F40.11 ; Chronic post-traumatic stress disorder (PTSD) F43.12 and Moderate episode of recurrent major depressive disorder F33.1 [id number] [place] [address] 02791- 3203 Apr, [facility] [id number] [place] [address] 36232- 0146 Apr, [facility] [id number] [place] [address] 57232- 0020 Mar, Moderate episode of recurrent major depressive disorder F33.1 ; Trichotillomania F63.3 ; Chronic post-traumatic stress disorder (PTSD) F43.12 ; Generalized social phobia F40.11 and Restless leg syndrome G25.81 [facility] [id number] [place] [address] 46285- 6988 Mar, [facility] [id number] [place] [address] 67768- 8227 Mar, [address] [id number] [place] [address] 69995- 4740 Feb, Left kidney mass N28.89 [facility] [id number] [place] [address] 85983- 2187 Jan, [facility] [id number] [place] [address] 97361- 5869 Dec, Polydipsia R63.1 ; Chronic pancreatitis K86.1 and Fatigue, unspecified type R53.83 [address] [id number] [place] [address] 87105- 9649 Nov, [facility] [id number] [place] [address] 38326- 3915 Nov, [facility] [id number] [place] [address] 70391- 8950 Nov, Headache around the eyes R51 [facility] [id number] [place] [address] 24710- 9089 Nov, [facility] [id number] [place] [address] 74283- 1787 October, STD exposure Z20.2 [facility] [id number] [place] [address] 35472- 5625 October, STD exposure Z20.2 [address] [id number] [place] [address] 08901- 6592 October, Chronic post-traumatic stress disorder (PTSD) F43.12 ; Generalized social phobia F40.11 ; Trichotillomania F63.3 and Restless leg syndrome G25.81 [facility] [id number] [place] [address] 48705- 6753 October, [address] [id number] [place] [address] 96971- 7862 Sep, [facility] [id number] [place] [address] 68212- 9835 Aug, [address] [id number] [place] [address] 79947- 3510 Aug, [facility] [id number] [place] [address] 52266- 4044 Aug, Neck mass R22.1 [address] [id number] [place] [address] 64426- 3640 Aug, Atelectasis J98.11 [address] [id number] [place] [address] 32624- 3647 28 Jul, 2016 Hyperlipidemia, mixed E78.2 ; Atypical pneumonia J18.9 and Neck mass R22.1 [address] [place] [address] 70747- 2407 15 Jul, 2016 Hemoptysis R04.2 [id number] [place] [address] 47750- 3970 08 Jul, 2016 Acute non-recurrent pansinusitis J01.40 ; Hemoptysis R04.2 ; Polydipsia R63.1 and Malaise R53.81 [facility] [id number] [place] [address] 04419 -3421 May, Other viral agents as the cause of diseases classified elsewhere B97.89 and Acute upper respiratory infection, unspecified J06.9 [facility] [id number] [place] [address] 84517 -2515 Mar, Nausea R11.0 [facility] IN [id number] [place] [address] 91957 -9406 Dec, Hives L50.9 [address] [address] 70811- 0474 Dec, [facility] IN [address] 16899 -4332 Dec, Cutaneous abscess of limb, unspecified L02.419 ; Cellulitis of unspecified part of limb L03.119 ; Encounter for incision and drainage procedure Z01.89 and Encounter for recheck of abscess following incision and drainage Z09 [facility] [id number] [place] [address] 41631 -4125 Dec, Abscess of leg, right L02.415 [address] [id number] [place] [address] 66217- 4540 Dec, Cellulitis of unspecified part of limb L03.119 and Cutaneous abscess of limb, unspecified L02.419 [address] [id number] [place] [address] 80213- 9234 Dec, [place] [id number] [place] [address] 56228- 5401 Dec, [facility] [id number] [place] [address] 48157 -2426 Aug, [address] [id number] [place] [address] 67916- 7326 Aug, [facility] [id number] [place] [address] 25946 -8116 Jul, Pain in unspecified wrist M25.539 and Back pain, thoracic M54.6 [facility] [address] [place] [address] 45376 -2258 Jun, Strain of right wrist, initial encounter S66.911A [facility] [id number] [place] [address] 33393- 5965 11 Jun, 2015 Chronic pancreatitis, unspecified pancreatitis type K86.1 ; Hirsuties L68.0 ; Morbid (severe) obesity due to excess calories E66.01 ; Chronic pancreatitis K86.1 and Asthma J45.909 [facility] [id number] [place] [address] 45378- 5646 May, [place] [address] 47043- 9809 May, Hyperlipidemia, mixed E78.2 and Muscle spasm of back M62.830 [place] [address] 99385- 3494 Apr, [place] [id number] [place] [address] 65820- 7264 Apr, Torticollis M43.6 [facility] [id number] [place] [address] 87972- 3614 Apr, Right-sided thoracic back pain M54.6 [facility] [id number] [place] [address] 97834- 2712 Mar, Rash R21 [facility] [id number] [place] [address] 28567- 6934 Mar, [place] [id number] [place] [address] 37979- 4609 Jan, [facility] [address] 24022- 0016 Dec, [facility] [id number] [place] [address] 61056- 6220 Dec, Urinary frequency 788.41 and Nocturia more than twice per night 788.43 [facility] [address] [address]- 1517 Nov, [facility] [address] [place] [address] 98896- 6027 Nov, [facility] [id number] [place] [address] 27443- 8962 Nov, Abdominal pain 789.00 [facility] [id number] [place] [address] 50496- 4527 October, TDAP DX V06.1 [facility] [id number] [place] [address] 90511- 4398 October, [facility] [id number] [place] [address] 39024- 2271 October, Disturbance of skin sensation 782.0 ; Wrist pain, right 719.43 ; Hyperlipidemia 272.4 and Skin lesion of face 709.9 [facility] [address] [place] [address] 70674- 9839 Sep, [facility] [id number] [place] [address] 25416- 3690 Sep, [facility] [id number] [address]- 5404 Aug, [facility] [address], [place] [address]- 2219 Aug, [facility] [address] [address]- 1337 Aug, [facility] [id number] [place] [address] 75945- 8419 Aug, [facility] [id number] [address]- 7599 Aug, [facility] [id number] [place] [address] 56773- 1267 Aug, [facility] [place] [facility] [address] [id number] [place] [address]- 8207 14 Aug, 2014 [facility] [place] [facility] [address] [id number] [place] [address]- 3177 14 Aug, 2014 [facility] [place] [facility] [address] [id number] [place] [address]- 4661 Aug, [facility] [place] [facility] [address] [id number] [place] [address]- 4695 Aug, [facility] [place] [facility] [address] [id number] [place] [address]- 2709 Aug, [facility] [place] [facility] [address] [id number] [place] [address]- 5487 Aug, [facility] [place] [facility] [address] [id number] [place] [address]- 9572 Aug, [facility] [place] [facility] [address] [id number] [place] [address]- 6894 Aug, [facility] [place] [facility] [address] [id number] [place] [address]- 7770 Jul, [facility] [place] [facility] [address] [id number] [place] [address]- 0523 Jul, 2014 [facility] [place] [facility] [address] [id number] [place] [address]- 4328 Jul, 2014 [facility] [place] [facility] [address] [id number] [place] [address]- 2160 Jul, 2014 [facility] [place] [facility] [address] [id number] [place] [address]- 1998 Jul, [facility] [place] [facility] [address] [id number] [place] [address]- 1648 Jul, [facility] [place] [facility] [address] [id number] [place] [address]- 2141 Jun, [facility] [place] [facility] [address] [id number] [place] [address]- 1121 Jun, [facility] [address] [id number] [place] [address]- 8746 Jun, [facility] [address] [id number] [place] [address]- 2290 Jun, [facility] [address] [id number] [place] [address]- 3260 Jun, [facility] [address] [id number] [place] [address]- 0459 Jun, [facility] [address] [id number] [place] [address]- 8501 Jun, [facility] [address] [id number] [place] [address]- 4177 Jun, [facility] [address] [id number] [place] [address]- 2626 May, [facility] [address] [id number] [place] [address]- 2078 May, [facility] [address] [id number] [place] [address]- 8367 18 May, 2014 [facility] [address] [id number] [place] [address]- 7796 18 May, 2014 [facility] [place] [facility] [address] [id number] [place] [address] 15 May, 2014 [facility] [address] [id number] [place] [address] 15 May, 2014 [facility] [place] [facility] [address] [id number] [place] [address] May, [facility] [place] [facility] [address] [id number] [place] [address] May, [facility] [place] [facility] [address] [id number] [place] [address] May, [facility] [place] [facility] [address] [id number] [place] [address] May, [facility] [place] [facility] [address] [id number] [place] [address] May, [facility] [place] [facility] [address] [id number] [place] [address] May, [facility] [place] [facility] [address] [id number] [place] [address] Apr, [facility] [place] [facility] [address] [id number] [place] [address] Apr, [facility] [place] [facility] [address] [id number] [place] [address] Apr, [facility] [place] [facility] [address] [id number] [place] [address] Apr, [facility] [place] [facility] [address] [id number] [place] [address] Apr, [facility] [place] [facility] [address] [id number] [place] [address] Apr, [facility] [place] [facility] [address] [id number] [place] [address] Apr, [facility] [place] [facility] [address] [id number] [place] [address] Apr, [facility] [place] [facility] [address] [id number], [place] [address] Apr, [facility] [place] [facility] [address] [id number] [place] [address] Apr, [facility] [place] [facility] [address] [id number] [place] [address] Apr, [facility] [place] [facility] [address] [id number], [place] [address] Apr, [facility] [place] [facility] [address] [id number], [place] [address] Mar, [facility] [place] [facility] [address] [id number] [place] [address] Mar, [facility] [place] [facility] [address] [id number] [place] [address] Mar, [facility] [place] [facility] [address] [id number] [place] [address] Mar, [facility] [place] [facility] [address] [id number] [place] [address] Feb, [facility] [place] [facility] [address] [id number] [place] [address] Feb, [facility] [place] [facility] [address] [id number] [place] [address] 05 Feb, 2014 [facility] [place] [facility] [address] [id number] [place] [address] Feb, [facility] [place] [facility] [address] [id number] [place] [address] Feb, [facility] [place] [facility] [address] [id number] [place] [address] Feb, [facility] [place] [facility] [address] [id number] [place] [address] Jan, [facility] [place] [facility] [address] [id number] [place] [address] Jan, [facility] [place] [facility] [address] [id number] [place] [address] Jan, [facility] [place] [facility] [address] [id number] [place] [address] Jan, [facility] [place] [facility] [address] [id number] [place] [place] [address] Jan, [facility] [place] [facility] [address] [id number] [place] [address] 80[address] Jan, [facility] [place] [facility] [address] [id number] [place] [address] Jan, 2013 [facility] [place] [facility] [address] [id number] [place] [address] Jan, [facility] [place] [facility] [address] [id number] [place] [address] Jan, [facility] [place] [facility] [address] [id number] [place] [address] 4845 Jan, [facility] [place] [facility] [address] [id number] [place] [address] 18[address] Jan, [facility] [place] [facility] [address] [id number] [place] [address] 0113 Jan, [facility] [place] [facility] [address] [id number] [place] [address]- 9645 Jan, [facility] [place] [facility] [address] [id number] [place] [address] 8097 Jan, [facility] [place] [facility] [address] [id number] [place] [address] 8763 Dec, [facility] [place] [facility] [address] [id number] [place] [address]- 7514 Dec, [facility] [place] [facility] [address] [id number] [place] [address]- 8194 Dec, [facility] [place] [facility] [address] [id number] [place] [address]- 7270 Dec, [facility] [place] [facility] [address] [id number] [place] [address]- 0767 Nov, [facility] [place] [facility] [address] [id number] [place] [address]- 9716 Nov, [facility] [place] [facility] [address] [id number] [place] [address]- 4617 Nov, [facility] [place] [facility] [address] [id number] [place] [address]- 0992 Nov, [facility] [place] [facility] [address] [id number] [place] [address]- 4818 Nov, [facility] [place] [facility] [address] [id number] [place] [address]- 0473 October, [facility] [place] [facility] [address] [id number] [place] [address]- 0058 October, [facility] [place] [facility] [address] [id number] [place] [address]- 7166 October, [facility] [place] [facility] [address] [id number] [place] [address]- 4541 October, [facility] [place] [facility] [address] [id number] [place] [address]- 6667 October, [facility] [place] [facility] [address] [id number] [place] [address]- 0805 October, [facility] [place] [facility] [address] [id number] [place] [address]- 5435 October, [facility] [place] [facility] [address] [id number] [place] [address]- 0108 October, [facility] [place] [facility] [address] [id number] [place] [address]- 8116 October, [facility] [place] [facility] [address] [id number] [place] [address]- 3095 October, [facility] [place] [facility] [address] [id number] [place] [address] 1923 October, [facility] [place] [facility] [address] [id number] [place] [address]- 8906 October, [facility] [place] [facility] [address] [id number] [place] [address]- 8517 October, [facility] [place] [facility] [address] [id number] [place] [address]- 1520 October, [facility] [place] [facility] [address] [id number] [place] [address]- 5768 17 Sep, 2013 [facility] [place] [facility] [address] [id number] [place] [address]- 4194 17 Sep, 2013 [facility] [place] [facility] [address] [id number] [place] [address]- 5484 Sep, [facility] [place] [facility] [address] [id number] [place] [address]- 1604 Sep, [facility] [place] [facility] [address] [id number] [place] [address]- 7628 Sep, [facility] [place] [facility] [address] [id number] [place] [address]- 5470 Sep, [facility] [place] [facility] [address] [id number] [place] [address]- 8244 Sep, [facility] [place] [facility] [address] [id number] [place] [address]- 0762 Sep, [facility] [place] [facility] [address] [id number] [place] [address]- 2095 Sep, [facility] [place] [facility] [address] [id number] [place] [address]- 3301 Sep, [facility] [place] [facility] [address] [id number] [place] [address]- 6827 Sep, [facility] [place] [facility] [address] [id number] [place] [address]- 5882 Sep, [facility] [place] [facility] [address] [id number] [place] [address]- 1590 Sep, [facility] [place] [facility] [address] [id number] [place] [address]- 5990 Sep, [facility] [place] [facility] [address] [id number] [place] [address]- 4289 Sep, [facility] [place] [facility] [address] [id number] [place] [address]- 5170 Aug, [facility] [place] [facility] [address] [id number] [place] [address]- 2911 Aug, [facility] [place] [facility] [address] [id number] [place] [address]- 8217 Aug, [facility] [place] [facility] [address] [id number] [place] [address]- 7375 Aug, [facility] [place] [facility] [address] [id number] [place] [address]- 5991 Jul, [facility] [place] [facility] [address] [id number] [place] [address]- 8960 Jul, [facility] [place] [facility] [address] [id number] [place] [address]- 1917 Jul, [facility] [place] [facility] [address] [id number] [place] [address]- 1799 Jul, [facility] [place] [facility] [address] [id number] [place] [address]- 9483 Jun, [facility] [place] [facility] [address] [id number] [place] [address]- 7928 Jun, [facility] [place] [facility] [address] [id number] [place] [address]- 0992 Jun, [facility] [place] [facility] [address] [id number] [place] [address]- 7687 Jun, [facility] [place] [facility] [address] [id number] [place] [address]- 7457 Jun, [facility] [place] [facility] [address] [id number] [place] [address]- 7338 Jun, [facility] [place] [facility] [address] [id number] [place] [address]- 8870 Jun, [facility] [place] [facility] [address] [id number] [place] [address]- 1703 Jun, [facility] [place] [facility] [address] [id number], [place] [address]- 1844 20 May, 2013 [facility] [place] [facility] [address] [id number] [place] [address]- 3052 20 May, 2013 [facility] [place] [facility] [address] [id number] [place] [address] 18 May, 2013 [facility] [place] [facility] [address] [id number] [place] 4071 18 May, 2013 [facility] [place] [facility] [address] [id number] [place] [address]- 5170 17 May, 2013 [facility] [place] [facility] [address] [id number] [place] [id number] 17 May, 2013 [facility] [place] [facility] [address] [id number] [place] [address]- 5716 17 May, 2013 [facility] [place] [facility] [address] [id number] [place] [address]- 2631 17 May, 2013 [facility] [place] [facility] [address] [id number] [place] [address]- 8384 16 May, 2013 [facility] [place] [facility] [address] [id number] [place] [address]- 1741 16 May, 2013 [facility] [place] [facility] [address] [id number] [place] [address]- 0424 14 May, 2013 [facility] [place] [facility] [address] [id number] [place] [address]- 9076 14 May, 2013 [facility] [place] [facility] [address] [id number] [place] [address]- 6346 13 May, 2013 [facility] [place] [facility] [address] [id number] [place] [address]- 8207 13 May, 2013 [facility] [place] [facility] [address] [id number] [place] [address]165 12 May, 2013 [facility] [place] [facility] [address] [id number] [place] [address]- 5114 12 May, 2013 [facility] [place] [facility] [address] [id number] [place] [address]- 0080 May, [facility] [address] [id number] [place] [address]- 1015 May, [facility] [address] [id number] [place] [address]- 2204 Apr, [facility] [address] [id number] [place] [address]- 2024 Apr, [facility] [address] [id number] [place] [address]- 5609 Apr, [facility] [address] [id number] [place] [address]- 0072 Apr, [facility] [address] [id number] [place] [address]- 2673 Aug, [facility] [address] [id number] [place] [address]- 2735 Aug, [facility] [address] [id number] [place] [address]- 3611 Aug, [facility] [address] [id number] [place] [address]- 6619 Aug, [facility] [address] [id number] [place] [address]- 6668 Jul, [facility] [address] [id number] [place] [address]- 8958 Jun, [facility] [address] [id number] [place] [address]- 2086 Jun, [facility] [address] [id number] [place] [address]- 2546 Jun, [facility] [address] [id number] [place] [address]- 2546 Jun, [facility] [address] [id number] [place] [address]- 0701 May, [facility] [place] [facility] [address] [id number] [place] [address]- 6386 May, [facility] [place] [facility] [address] [id number] [place] [address]- 7758 May, [facility] [place] [facility] [address] [id number] [place] 4570 May, [facility] [place] [facility] [address] [id number] [place] [address]- 9890 May, [facility] [place] [facility] [address] [id number] [place] [address]- 7915 May, [facility] [place] [facility] [address] [id number] [place] [address]- 4503 May, [facility] [place] [facility] [address] [facility] [id number] [place] [address]- 6697 Apr, [facility] [place] [facility] [address] [id number], [place] [address]- 0894 Apr, [facility] [place] [facility] [address] [id number] [place] [address]- 3624 Apr, [facility] [place] [facility] [address] [facility] [id number], [place] [address]- 9886 Apr, [facility] [place] [facility] [address] [id number], [place] [address]- 8010 Apr, [facility] [place] [facility] [address] [id number], [place] [address]- 5977 Apr, [facility] [place] [facility] [address] [id number][place] [address]- 8691 Apr, [facility] [place] [facility] [address] [id number], [place] [address]- 5703 Mar, [facility] [place] [facility] [address] [id number], [place] [address]- 7235 Mar, [facility] [place] [facility] [address] [id number] [place] [address]- 3463 19 Mar, 2012 [facility] [place] [facility] [address] [id number] [place] [address]- 4568 Mar, 2011 [facility] [place] [facility] [address] [id number] [place] 8522 Mar, [facility] [place] [facility] [address] [id number] [place] [address]- 2351 Mar, [facility] [place] [facility] [address] [id number] [place] [address]- 1502 Mar, [facility] [place] [facility] [address] [id number] [place] 1729 Mar, [facility] [place] [facility] [address] [id number] [place] [address]- 0008 Mar, [facility] [place] [facility] [address] [id number] [place] [address]- 3580 Mar, [facility] [place] [facility] [address] [id number] [place] [address]- 1052 Mar, [facility] [place] [facility] [address] [id number] [place] [address]- 9679 Mar, [facility] [place] [facility] [address] [facility] [id number] [place] [address]- 4622 Feb, [facility] [place] [facility] [address] [id number] [place] [address]- 0281 Jan, [facility] [place] [facility] [address] [id number] [place] [address]- 7399 Jan, [facility] [place] [facility] [address] [id number] [place] [address]- 3127 Jan, [facility] [place] [facility] [address] [id number] [place] [address]- 3798 Jan, [facility] [place] [facility] [address] [facility] [id number] [place] [address]- 6678 Jan, [facility] [place] [facility] [address] [id number] [place] [address]- 3725 Dec, [facility] [place] [facility] [address] [id number] [place] [address]- 2984 Dec, [facility] [place] [facility] [address] [id number] [place] [address]- 7484 Nov, [facility] [place] [facility] [address] [id number] [place] [address]- 4703 Nov, [facility] [place] [facility] [address] [id number] [place] [address]- 1844 Nov, [facility] [place] [facility] [address] [id number] [place] [address]- 8398 October, [facility] [address] [id number] [place] [address]- 8584 October, [facility] [address] [id number] [place] [address]- 1111 October, [facility] [address] [id number] [place] [address]- 3892 October, [facility] [place] [facility] [address] [id number] [place] [address]- 5538 October, [facility] [place] [facility] [address] [id number] [place] [address]- 6182 October, [facility] [place] [facility] [address] [id number] [place] [address]- 1538 October, [facility] [place] [facility] [address] [id number] [place] [address]- 8210 Sep, [facility] [place] [facility] [address] [id number] [place] [address]- 6332 Sep, [facility] [place] [facility] [address] [id number] [place] [address]- 1549 Sep, [facility] [place] [facility] [address] [id number] [place] [address]- 1811 25 Sep, 2011 [facility] [place] [facility] [address] [id number] [place] [address]- 8525 24 Sep, 2011 [facility] [place] [facility] [address] [id number] [place] [address]- 9981 19 Sep, 2011 [facility] [place] [facility] [address] [id number] [place] [address]- 8949 17 Sep, 2011 [facility] [place] [facility] [address] [id number] [place] [address]- 2016 16 Sep, 2011 [facility] [place] [facility] [address] [id number] [place] [address]- 4416 16 Sep, 2011 [facility] [place] [facility] [address] [id number] [place] [address]- 2827 14 Sep, 2011 [facility] [place] [facility] [address] [id number] [place] [address]- 7303 13 Sep, 2011 [facility] [place] [facility] [address] [id number] [place] [address]- 5892 10 Sep, 2011 [facility] [place] [facility] [address] [id number] [place] [address]- 3083 09 Sep, 2011 [facility] [place] [facility] [address] [id number] [place] [address]- 9692 27 Aug, 2011 [facility] [place] [facility] [address] [id number] [place] [address]- 9368 12 Aug, 2011 [facility] [place] [facility] [address] [id number] [place] [address]- 9493 08 Aug, 2011 [facility] [place] [facility] [address] [id number] [place] [address]- 7315 06 Aug, 2011 [facility] [place] [facility] [address] [id number] [place] [address]- 6156 28 Jul, 2011 [facility] [place] [facility] [address] [id number] [place] [address]- 6930 Jul, [facility] [place] [facility] [address] [id number] [place] [address]- 8301 16 Jul, 2011 [facility] [address] [id number] [place] [address]- 7436 15 Jul, 2011 [facility] [place] [facility] [address] [id number] [place] [address]- 9136 14 Jul, 2011 [facility] [place] [facility] [address] [id number] [place] [address]- 2796 10 Jul, 2011 [facility] [place] [facility] [address] [id number] [place] [address]- 0619 30 Jun, 2011 [facility] [place] [facility] [address] [id number] [place] [address]- 9010 05 Jun, 2011 [facility] [address] [id number] [place] [address]- 8377 Jun, [facility] [address] [id number] [place] [address]- 5908 Jun, [facility] [address] [id number] [place] [address]- 1819 Jun, [facility] [address] [id number] [place] [address]- 1819 May, [facility] [address] [id number] [place] [address]- 2664 May, [facility] [place] [facility] [address] [id number] [place] [address]- 2946 14 May, 2011 [facility] [place] [facility] [address] [id number] [place] [address] 2541 14 May, 2011 [facility] [place] [facility] [address] [id number] [place] [address]- 5816 12 May, 2011 [facility] [place] [facility] [address] [id number] [place] [address] 2546 07 May, 2011 [facility] [place] [facility] [address] [id number] [place] [address]- 6293 May, [facility] [place] [facility] [address] [id number] [place] [address]- 6249 Apr, [facility] [place] [facility] [address] [id number] [place] [address]- 2862 Apr, [facility] [place] [facility] [address] [id number] [place] 8934 Apr, [facility] [place] [facility] [address] [id number] [place] [address]- 3937 Apr, [facility] [place] [facility] [address] [id number] [place] [address]- 4448 Apr, [facility] [place] [facility] [address] [id number] [place] [address]- 8574 Apr, [facility] [place] [facility] [address] [id number] [place] [address]- 4248 Mar, [facility] [place] [facility] [address] [id number] [place] [address]- 7020 Mar, [facility] [place] [facility] [address] [id number] [place] [address]- 5573 Mar, [facility] [place] [facility] [address] [id number] [place] [address]- 5502 Mar, [facility] [place] [facility] [address] [id number], [place] [address]- 0580 Jan, [facility] [place] [facility] [address] [id number], [place] [address]- 4477 Dec, [facility] [place] [facility] [address] [id number] [place] [address]- 4567 Dec, [facility] [place] [facility] [address] [id number], [place] [address]- 4883 October, [facility] [place] [facility] [address] [id number] [place] [address]- 5074 Sep, [facility] [place] [facility] [address] [id number] [place] [address]- 9877 14 Sep, 2010 [facility] [address] [id number] [place] [address]- 9886 17 Jul, 2010 [facility] [address] [id number] [place] [address] 25[address] 16 Jul, 2010 [facility] [address] [id number] [place] [address] 31 May, 2010 [facility] [place] [facility] [address] [id number] [place] [address] 27 May, 2010 [facility] [address] [id number] [place] [address], [place] [address] 08 May, 2010 [facility] [address] [id number] [place] [address] 06 May, 2010 [facility] [address] [id number] [place] [address] Apr, [facility] [address] [id number] [place] [address] Apr, [facility] [address] [id number] [place] [address] Apr, [facility] [address] [facility] [id number] [place] [address] 18 Apr, 2010 [facility] [place] [facility] [address] [id number] [place] [address] Apr, [facility] [place] [facility] [address] [id number] [place] [address] 21 Mar, 2010 [facility] [place] [facility] [address] [id number] [place] [address] 14 Mar, 2010 [facility] [place] [facility] [address] [id number] [place] [address] 13 Mar, 2010 [facility] [place] [facility] [address] [id number] [place] [address] Mar, [facility] [address] [facility] [id number] [address] Jan, [facility] [address] [facility] [id number] [address] Dec, [facility] [id number] [address] Sep, [facility] [id number], [place] [address] May, [facility] [address] [facility] [id number] [address] May, [facility] [id number] [address] May, [facility] [id number], [place] [address] Apr, [facility] [id number], [place] [address] Apr, [facility] [id number], [place] [address] Apr, [facility] [address] [id number], [place] [address] Apr, [facility] [address], [place] [address] Apr, [facility] [address] [id number], [place] [address] Mar, [facility] [address] [id number], [place] [address] Mar, [facility] [address] [id number] [address] Jul, IMMUNIZATIONS No Known Immunizations SOCIAL HISTORY [...] 08/2017 Surgical History nephrectomy 03/2017 Hospitalization History [facility]ulitis-[facility] 12/20/15 Hospitalization History [facility]- Abd pain 03/07/2017 Hospitalization History [facility]- Abd pain 03/14/2017 Hospitalization History [facility]- No bowel movement, rash 04/13/2017 Hospitalization History [facility]- Abd pain r/t kidney surgery on 04/17/2017 Hospitalization History [facility]- Abd pain r/t kidney surgery on 04/18/2017 Hospitalization History [facility]- Lower abd pain 04/30/2017 Hospitalization History [facility]- Cannot urinate 05/30/2017 Hospitalization History [facility]- Pancreatitis Sx 06/29/2017 Hospitalization History [facility]- Stomach pain 07/22/2017 Hospitalization History [facility]- Left side pain 08/12/2017 Hospitalization History [facility]- Incision site infection 08/30/2017 Hospitalization History [facility]- Post Op Seroma/Hematoma Left Abdomen. Discharged 09/04/17- Dr Daniel 09/02/2017 Hospitalization History [facility]- Right shoulder and back pain 2017 Hospitalization History [facility]- Shoulder/Back pain 11/11/2017 Hospitalization History [facility]- Right shoulder blade pain 12/04/2017 Hospitalization History [facility]- C-Diff 12/13/2017 Hospitalization History C diff et MRSA 12/27/2017
--- OUTSIDE RECORDS SUMMARY | 2018-02-13 11:06 | XMS REPORT ---
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 Name Role Phone CORTNEY GIBBSHANY Unavailable PROBLEMS Type Condition ICD9-CM Code [id number] Code Onset Dates Condition Status SNOMED Code Problem Polydipsia R63.1 Active 39045138 Problem Trichotillomania F63.3 Active 58526846 Problem Atelectasis J98.11 Active 58111704 Problem Intestinal malabsorption, unspecified K90.9 Active 20656337 Problem Chronic fatigue R53.82 Active 99026086 Problem Generalized social phobia F40.11 Active 72934965 Problem Restless leg syndrome G25.81 Active 44141534 Problem Moderate episode of recurrent major depressive disorder F33.1 Active 778432454 Problem Chronic post-traumatic stress disorder (PTSD) F43.12 Active 617562578 Problem History of renal cell carcinoma Z85.528 Active 685135071 Problem Chronic tension-type headache, intractable G44.221 Active 977506443 Problem Nodule of left lung R91.1 Active 168859680 Problem Hirsuties L68.0 Active 339039033 Problem FH: polycystic ovary Z84.2 Active 972891736 Problem Morbid (severe) obesity due to excess calories E66.01 Active 924623108 Problem Chronic pancreatitis K86.1 Active 592301823 Problem Hyperlipidemia, mixed E78.2 Active 195409192 Problem Asthma J45.909 Active 230463770 ALLERGIES Substance Reaction Event Type Date Status Penicillin V Potassium Unknown Drug Allergy Nov, Active Fentanyl Unknown Drug Allergy Nov, Active Demerol Unknown Drug Allergy Nov, Active ENCOUNTERS Encounter Location Date Diagnosis [facility] [address] [facility] [id number] [address] Feb, [facility] [address] [facility] [id number] [address] Jan, [facility] [address] [place] [address] 84787- 3629 Jan, [facility] [address] [place] [id number] [place] [address] 72145- 0198 Dec, [facility] [id number] [place] [address] 34247- 3894 Dec, Intestinal malabsorption, unspecified K90.9 and Diarrhea, unspecified R19.7 [facility] [id number] [place] [address] 12031- 6938 Dec, [facility] [id number] [place] [address] 69104- 1628 Dec, Strep throat J02.0 ; Intestinal malabsorption, unspecified K90.9 ; Diarrhea, unspecified R19.7 ; Postoperative seroma involving digestive system after non-digestive system procedure K91.873 ; Hyperlipidemia, mixed E78.2 and BMI 45.0-49.9, adult Z68.42 [facility] [id number] [place] [address] 03112- 3106 Dec, [facility] [id number] [place] [address] 42500- 7464 Dec, Nausea R11.0 [facility] [id number] [place] [address] 73457- 6735 Dec, [facility] [address] [place] [address] 56632 -0846 Dec, Sore throat J02.9 ; Strep throat J02.0 and BMI 45.0-49.9, adult Z68.42 [facility] [id number] [place] [address] 37750- 3199 Dec, [facility] [id number] [place] [address] 66460- 7094 Dec, [facility] [id number] [place] [address] 23621- 1253 Dec, [facility] [address] [address] 1911 Dec, [facility] [address] [address] 9295 Dec, [facility] [address] [address] 5710 Dec, [facility] [address] [place] [address] 88432- 1531 Dec, [facility] [address] [place] [address] 77129- 6622 Dec, [facility] [address] [address] 7022 Dec, Clostridium difficile colitis A04.72 ; Intractable vomiting with nausea, unspecified vomiting type R11.2 and BMI 45.0-49.9, adult Z68.42 [facility] [address] [address]- 1369 Dec, [facility] [address] [address]- 4586 Nov, [facility] [address] [address]- 1111 Nov, [facility] [address] [address]- 3084 Nov, [facility] [address] [address] 9940 Nov, [facility] [address] [address] Nov, [facility] [address] [address]- 7216 Nov, Hyperlipidemia, mixed E78.2 [facility] [address] [address] Nov, Acute suppurative otitis media of right ear without spontaneous rupture of tympanic membrane, recurrence not specified H66.001 and BMI 45.0-49.9, adult Z68.42 [place] [address] [place] [address] 16745- 8965 Nov, Hyperlipidemia, mixed E78.2 [place] [id number] [place] [address] 85417- 6019 Nov, [place] [id number] [place] [address] 99793- 8879 Nov, [place] [id number] [place] [address] 81843- 9756 Nov, Nodule of left lung R91.1 [place] [id number] [place] [address] 35609- 1313 Nov, Medicare annual wellness visit, initial Z00.00 [...] adult Z68.42 and Encounter for immunization Z23 [place] [address] [place] [address] 39114- 9527 October, [place] [id number] [place] [address] 84229- 7957 October, Nodule of left lung R91.1 [place] [id number] [place] [address] 41164- 2720 October, Nodule of left lung R91.1 [place] [address] [place] [address] 05484- 2035 October, Recurrent major depressive disorder, in partial remission F33.41 ; Restless leg syndrome G25.81 ; Generalized social phobia F40.11 ; Chronic post-traumatic stress disorder (PTSD) F43.12 ; BMI 45.0-49.9, adult Z68.42 and Trichotillomania F63.3 [facility] [id number] [place] [address] 19851- 2200 October, [place] [address] 22794- 9728 Sep, Chronic fatigue R53.82 and BMI 45.0-49.9, adult Z68.42 [place] [address] 92002- 4263 Aug, [place] [address] 31627- 6358 Jul, Restless leg syndrome G25.81 and B12 deficiency E53.8 [place] [address] 15411- 7869 Jul, [place] [id number] [place] [address] 75614- 6809 Jul, [place] [id number] [place] [address] 51080- 8381 Jun, [place] [id number] [place] [address] 47390- 8168 Jun, Fatigue, unspecified type R53.83 ; History of renal cell carcinoma Z85.528 ; Chronic pancreatitis K86.1 ; Restless leg syndrome G25.81 ; Dark urine R82.99 and BMI 45.0-49.9, adult Z68.42 [place] [id number] [place] [address] 90055- 4010 Jun, [place] [id number] [place] [address] 83864- 5862 Jun, [place] [address] 88518- 6684 Jun, [place] [address] [address]- 0309 Jun, [place] [address] [place] [address] 48156- 4098 May, Chronic post-traumatic stress disorder (PTSD) F43.12 ; Moderate episode of recurrent major depressive disorder F33.1 ; Trichotillomania F63.3 and Generalized social phobia F40.11 [place] [address] [place] [address] 21585- 2364 May, [place] [address] [place] [address] 45371- 1404 May, Chronic post-traumatic stress disorder (PTSD) F43.12 ; Moderate episode of recurrent major depressive disorder F33.1 ; Trichotillomania F63.3 and Generalized social phobia F40.11 [place] [address] [place] [address] 57666- 1804 May, Hyperlipidemia, mixed E78.2 ; Morbid (severe) obesity due to excess calories E66.01 ; Chronic post-traumatic stress disorder (PTSD) F43.12 ; Moderate episode of recurrent major depressive disorder F33.1 ; Trichotillomania F63.3 and Generalized social phobia F40.11 [place] [address] [address]- 4767 Apr, [place] [address] [place] [address] 23276- 5004 Apr, Hyperlipidemia, mixed E78.2 ; Morbid (severe) obesity due to excess calories E66.01 ; Chronic post-traumatic stress disorder (PTSD) F43.12 ; Moderate episode of recurrent major depressive disorder F33.1 ; Trichotillomania F63.3 and Generalized social phobia F40.11 [place] [address] [address]- 9434 Apr, Trichotillomania F63.3 ; Generalized social phobia F40.11 ; Chronic post-traumatic stress disorder (PTSD) F43.12 and Moderate episode of recurrent major depressive disorder F33.1 [facility] [id number] [place] [address] 59446- 9707 Apr, [facility] [id number] [place] [address] 65771- 2429 Apr, [facility] [id number] [place] [address] 38854- 2934 Mar, Moderate episode of recurrent major depressive disorder F33.1 ; Trichotillomania F63.3 ; Chronic post-traumatic stress disorder (PTSD) F43.12 ; Generalized social phobia F40.11 and Restless leg syndrome G25.81 [place] [id number] [place] [address] 98518- 5961 Mar, [place] [address] 93671- 0772 Mar, [place] [id number] [place] [address] 36034- 7827 Feb, Left kidney mass N28.89 [place] [id number] [place] [address] 23279- 7754 Jan, [place] [id number] [place] [address] 53510- 7833 Dec, Polydipsia R63.1 ; Chronic pancreatitis K86.1 and Fatigue, unspecified type R53.83 [facility] [address] [id number] [place] [address] 37314- 4974 Nov, [place] [id number] [place] [address] 35724- 9043 Nov, [place] [id number] [place] [address] 25002- 1920 Nov, Headache around the eyes R51 [place] [id number] [place] [address] 59905- 7838 Nov, [facility] [address] [place] [address] 79912- 5964 October, STD exposure Z20.2 [facility] [id number] [place] [address] 70544- 1392 October, STD exposure Z20.2 [facility] [id number] [place] [address] 41390- 7420 October, Chronic post-traumatic stress disorder (PTSD) F43.12 ; Generalized social phobia F40.11 ; Trichotillomania F63.3 and Restless leg syndrome G25.81 [place] [id number] [place] [address] 95123- 2138 October, [facility] [id number] [place] [address] 38464- 7960 Sep, [facility] [id number] [place] [address] 74146- 4348 Aug, [facility] [id number] [place] [address] 39874- 9988 Aug, [facility] [id number] [place] [address] 13516- 5973 Aug, Neck mass R22.1 [place] [id number] [place] [address] 44139- 5284 Aug, Atelectasis J98.11 [facility] [id number] [place] [address] 45001- 3389 28 Jul, 2016 Hyperlipidemia, mixed E78.2 ; Atypical pneumonia J18.9 and Neck mass R22.1 [facility] [id number] [place] [address] 92934- 7806 15 Jul, 2016 Hemoptysis R04.2 [facility] [id number] [place] [address] 23525- 3481 08 Jul, 2016 Acute non-recurrent pansinusitis J01.40 ; Hemoptysis R04.2 ; Polydipsia R63.1 and Malaise R53.81 [facility] [place] [id number] [place] [address] 19043 -6230 May, Other viral agents as the cause of diseases classified elsewhere B97.89 and Acute upper respiratory infection, unspecified J06.9 [facility] [place] [id number] [place] [address] 59364 -8263 Mar, Nausea R11.0 [facility] [place] [id number] [place] [address] 27923 -0900 Dec, Hives L50.9 [place] [address] 17514- 7256 Dec, [facility] [place] [id number] [place] [address] 96389 -8790 Dec, Cutaneous abscess of limb, unspecified L02.419 ; Cellulitis of unspecified part of limb L03.119 ; Encounter for incision and drainage procedure Z01.89 and Encounter for recheck of abscess following incision and drainage Z09 [facility] [place] [id number] [place] [address] 40834 -7708 Dec, Abscess of leg, right L02.415 [place] [id number] [place] [address] 76295- 0511 Dec, Cellulitis of unspecified part of limb L03.119 and Cutaneous abscess of limb, unspecified L02.419 [place] [id number] [place] [address] 62274- 0169 Dec, [place] [id number] [place] [address] 37577- 7222 Dec, [facility] [place] [id number] [place] [address] 70743 -7312 Aug, [place] [id number] [place] [address] 72805- 4824 Aug, [facility] [id number] [place] [address] 42388 -9362 04 Jul, 2015 Pain in unspecified wrist M25.539 and Back pain, thoracic M54.6 [facility] [id number] [place] [address] 03939 -0300 Jun, Strain of right wrist, initial encounter S66.911A [place] [address] 55075- 7404 Jun, Chronic pancreatitis, unspecified pancreatitis type K86.1 ; Hirsuties L68.0 ; Morbid (severe) obesity due to excess calories E66.01 ; Chronic pancreatitis K86.1 and Asthma J45.909 [place] [address] [place] [address] 58482- 6342 May, [place] [address] 61400- 5881 May, Hyperlipidemia, mixed E78.2 and Muscle spasm of back M62.830 [place] [address] [place] [address] 49537- 2602 Apr, [place] [address] 03414- 8153 Apr, Torticollis M43.6 [place] [id number] [place] [address] 68083- 4509 Apr, Right-sided thoracic back pain M54.6 [facility] [id number] [place] [address] 72354- 3354 Mar, Rash R21 [place] [address] 06009- 6431 Mar, [facility] [address] 12273- 9531 Jan, [place] [address] 71917- 2191 Dec, [place] [address] [address]- 2721 Dec, Urinary frequency 788.41 and Nocturia more than twice per night 788.43 [facility] [id number] [place] [address] 49181- 8436 Nov, [facility] [id number] [place] [address] 83489- 5738 Nov, [facility] [id number] [place] [address] 14820- 4529 Nov, Abdominal pain 789.00 [facility] [address] 84921- 0286 October, TDAP DX V06.1 [facility] [id number] [place] [address] 90462- 8272 October, [facility] [id number] [place] [address] 06073- 8107 October, Disturbance of skin sensation 782.0 ; Wrist pain, right 719.43 ; Hyperlipidemia 272.4 and Skin lesion of face 709.9 [facility] [id number] [place] [address] 46821- 0476 Sep, [facility] [id number] [place] [address] 93074- 7987 Sep, [facility] [id number] [place] [address] 63683- 6445 Aug, [facility] [id number] [place] [address] 41548- 2894 Aug, [facility] [id number] [place] [address] 83245- 9350 Aug, [facility] [id number] [place] [address] 21782- 9153 Aug, [facility] [id number] [place] [address] 17846- 2374 16 Aug, 2014 [facility] [place] [facility] [address] [id number] [place] [address]- 2894 16 Aug, 2014 [facility] [place] [facility] [address] [id number] [place] [address]- 6276 14 Aug, 2014 [facility] [place] [facility] [address] [id number] [place] [address]- 5097 14 Aug, 2014 [facility] [place] [facility] [address] [id number] [place] [address]- 2224 11 Aug, 2014 [facility] [place] [facility] [address] [id number] [place] [address]- 6929 11 Aug, 2014 [facility] [place] [facility] [address] [id number] [place] [address]- 0097 04 Aug, 2014 [facility] [place] [facility] [address] [id number] [place] [address]- 0399 04 Aug, 2014 [facility] [place] [facility] [address] [id number] [place] [address]- 7249 Aug, [facility] [place] [facility] [address] [id number] [place] [address]- 5401 Aug, [facility] [place] [facility] [address] [id number] [place] [address]- 1708 23 Jul, 2014 [facility] [place] [facility] [address] [id number] [place] [address]- 3342 23 Jul, 2014 [facility] [place] [facility] [address] [id number] [place] [address]- 4246 Jul, 2014 [facility] [place] [facility] [address] [id number] [place] [address]- 0693 Jul, 2014 [facility] [place] [facility] [address] [id number] [place] [address]- 9232 Jul, 2014 [facility] [place] [facility] [address] [id number] [place] [address]- 3893 04 Jul, 2014 [facility] [place] [facility] [address] [id number] [place] [address]- 2354 Jun, [facility] [address] [id number] [place] [address]- 9358 Jun, [facility] [place] [facility] [address] [id number] [place] [address]- 4852 Jun, [facility] [address] [id number] [place] [address]- 3498 Jun, [facility] [place] [facility] [address] [id number] [place] [address]- 0904 Jun, [facility] [place] [facility] [address] [id number] [place] [address]- 9996 Jun, [facility] [place] [facility] [address] [id number] [place] [address]- 7384 Jun, [facility] [place] [facility] [address] [id number] [place] [address]- 0010 Jun, [facility] [address] [id number] [place] [address]- 2440 May, [facility] [place] [facility] [address] [id number] [place] [address]- 8091 May, [facility] [place] [facility] [address] [id number] [place] [address]- 8542 18 May, 2014 [facility] [place] [facility] [address] [id number] [place] [address]- 6546 18 May, 2014 [facility] [place] [facility] [address] [id number] [place] [address] 15 May, 2014 [facility] [place] [facility] [address] [id number] [place] [address] 15 May, 2014 [facility] [place] [facility] [address] [id number] [place] [address] May, [facility] [place] [facility] [address] [id number] [place] [address] May, [facility] [place] [facility] [address] [id number] [place] [address] May, [facility] [place] [facility] [address] [id number] [place] [address] May, [facility] [place] [facility] [address] [id number] [place] [address] May, [facility] [place] [facility] [address] [id number] [place] [address] May, [facility] [place] [facility] [address] [id number] [place] [address] Apr, [facility] [place] [facility] [address] [id number] [place] [address] Apr, [facility] [place] [facility] [address] [id number] [place] [address] Apr, [facility] [place] [facility] [address] [id number] [place] [address] Apr, [facility] [place] [facility] [address] [id number] [place] [address] Apr, [facility] [place] [facility] [address] [id number] [place] [address] Apr, [facility] [place] [facility] [address] [id number] [place] [address] Apr, [facility] [place] [facility] [address] [id number] [address] Apr, [facility] [place] [facility] [address] [id number] [place] [address] Apr, [facility] [place] [facility] [address] [id number] [place] [address] Apr, [facility] [place] [facility] [address] [id number] [place] [address] Apr, [facility] [place] [facility] [address] [id number] [place] [address] Apr, [facility] [place] [facility] [address] [id number] [place] [address] Mar, [facility] [place] [facility] [address] [id number] [place] [address] 14 Mar, 2014 [facility] [place] [facility] [address] [id number] [place] [address] Mar, [facility] [place] [facility] [address] [id number] [place] [address] Mar, [facility] [place] [facility] [address] [id number] [place] [address] 10 Feb, 2014 [facility] [place] [facility] [address] [id number] [place] [address] 10 Feb, 2013 [facility] [place] [facility] [address] [id number] [place] [address] 05 Feb, 2013 [facility] [place] [facility] [address] [id number] [place] [address] 05 Feb, 2013 [facility] [place] [facility] [address] [id number] [place] [address] 05 Feb, 2013 [facility] [place] [facility] [address] [id number] [place] [address] 05 Feb, 2013 [facility] [place] [facility] [address] [id number] [place] [address] Jan, [facility] [place] [facility] [address] [id number] [place] [address] Jan, [facility] [place] [facility] [address] [id number] [place] [address] Jan, [facility] [place] [facility] [address] [id number] [place] [address] Jan, [facility] [place] [facility] [address] [id number] [place] [address] Jan, [facility] [place] [facility] [address] [id number] [place] [address] Jan, [facility] [place] [facility] [address] [id number] [place] [address] Jan, [facility] [place] [facility] [address] [id number] [place] [address] Jan, [facility] [place] [facility] [address] [id number] [place] [address] Jan, [facility] [place] [facility] [address] [id number] [place] [address] Jan, [facility] [place] [facility] [address] [id number] [place] [address] Jan, [facility] [place] [facility] [address] [id number] [place] [address] Jan, [facility] [place] [facility] [address] [id number] [place] [address] 99[address] Jan, [facility] [place] [facility] [address] [id number] [place] [address] 76[address] Jan, [facility] [place] [facility] [address] [id number] [place] [address] 57[address] Dec, [facility] [place] [facility] [address] [id number] [place] [address] 4[address] Dec, [facility] [place] [facility] [address] [id number] [place] [address]- 9693 Dec, [facility] [place] [facility] [address] [id number] [place] [address] 8625 Dec, [facility] [place] [facility] [address] [id number] [place] [address] 3264 Nov, [facility] [place] [facility] [address] [id number] [place] [address]- 4510 Nov, [facility] [place] [facility] [address] [id number] [place] [address]- 4480 Nov, [facility] [place] [facility] [address] [id number] [place] [address]- 6916 Nov, [facility] [place] [facility] [address] [id number] [place] [address]- 2471 Nov, [facility] [place] [facility] [address] [id number] [place] [address]- 7008 October, [facility] [place] [facility] [address] [id number] [place] [address]- 9494 October, [facility] [place] [facility] [address] [id number] [place] [address]- 8996 October, [facility] [place] [facility] [address] [id number] [place] [address]- 4377 October, [facility] [place] [facility] [address] [id number] [place] [address]- 6975 October, [facility] [place] [facility] [address] [id number] [place] [address]- 7027 October, [facility] [place] [facility] [address] [id number] [place] [address]- 7953 October, [facility] [place] [facility] [address] [id number] [place] [address]- 2449 October, [facility] [place] [facility] [address] [id number] [place] [address]- 0177 October, [facility] [place] [facility] [address] [id number] [place] [address]- 9874 October, [facility] [place] [facility] [address] [id number] [place] [address]- 6160 October, [facility] [place] [facility] [address] [id number] [place] [address]- 2937 October, [facility] [place] [facility] [address] [id number] [place] [address] October, [facility] [place] [facility] [address] [id number] [place] [address]- 2749 October, [facility] [address] [id number] [place] [address]- 7376 Sep, [facility] [address] [id number] [place] [address]- 7983 Sep, [facility] [address] [id number] [place] [address]- 5964 Sep, [facility] [place] [facility] [address] [id number] [place] [address]- 9131 Sep, [facility] [address] [id number] [place] [address]- 3739 Sep, [facility] [address] [id number] [place] [address]- 3912 Sep, [facility] [address] [id number] [place] [address]- 9698 Sep, [facility] [address] [id number] [place] [address]- 8501 Sep, [facility] [place] [facility] [address] [id number] [place] [address]- 9937 Sep, [facility] [address] [id number] [place] [address]- 5314 Sep, [facility] [place] [facility] [address] [id number] [place] [address]- 6319 Sep, [facility] [place] [facility] [address] [id number] [place] [address]- 4277 Sep, [facility] [place] [facility] [address] [id number] [place] [address]- 1784 Sep, [facility] [place] [facility] [address] [id number] [place] [address]- 5681 Sep, [facility] [place] [facility] [address] [id number] [place] [address]- 5562 Sep, [facility] [place] [facility] [address] [id number] [place] [address]- 5419 Aug, [facility] [place] [facility] [address] [id number] [place] [address]- 2900 Aug, [facility] [place] [facility] [address] [id number] [place] [address]- 4660 Aug, [facility] [place] [facility] [address] [id number] [place] [address]- 4167 Aug, [facility] [place] [facility] [address] [id number] [place] [address]- 3012 Jul, [facility] [place] [facility] [address] [id number] [place] [address]- 5072 Jul, [facility] [place] [facility] [address] [id number] [place] [address]- 6594 Jul, [facility] [place] [facility] [address] [id number] [place] [address]- 0894 Jul, [facility] [place] [facility] [address] [id number] [place] [address]- 8225 Jun, [facility] [place] [facility] [address] [id number] [place] [address]- 1823 Jun, [facility] [place] [facility] [address] [id number] [place] [address]- 7874 Jun, [facility] [place] [facility] [address] [id number] [place] [address]- 9549 Jun, [facility] [place] [facility] [address] [id number] [place] [address]- 8734 Jun, [facility] [place] [facility] [address] [id number] [place] [address]- 8820 Jun, [facility] [place] [facility] [address] [id number] [place] [address]- 1729 Jun, [facility] [place] [facility] [address] [id number] [place] [address]- 8226 08 Jun, 2013 [facility] [address] [id number] [place] [address] 20 May, 2013 [facility] [address] [id number] [place] [address] 20 May, 2013 [facility] [address] [id number] [place] [address]- 8262 18 May, 2013 [facility] [address] [id number] [place] [address]- 2951 18 May, 2013 [facility] [address] [id number] [place] [address] 17 May, 2013 [facility] [address] [id number] [place] [id number] 17 May, 2013 [facility] [address] [id number] [place] [address]- 4370 17 May, 2013 [facility] [address] [id number] [place] [address]- 7025 17 May, 2013 [facility] [address] [id number] [place] [address]- 9419 16 May, 2013 [facility] [address] [id number] [place] [address]- 7200 16 May, 2013 [facility] [address] [id number] [place] [address]- 3901 14 May, 2013 [facility] [place] [facility] [address] [id number] [place] [address]- 3579 14 May, 2013 [facility] [address] [id number] [place] [address] 13 May, 2013 [facility] [place] [facility] [address] [id number] [place] [address]- 9599 13 May, 2013 [facility] [place] [facility] [address] [facility] [id number] [place] [address]- 2142 12 May, 2013 [facility] [place] [facility] [address] [id number] [place] [address]- 5983 May, [facility] [place] [facility] [address] [id number] [place] [address]- 5124 May, [facility] [place] [facility] [address] [id number] [place] [address]- 2173 May, [facility] [place] [facility] [address] [id number] [place] [address]- 4000 Apr, [facility] [place] [facility] [address] [id number] [place] [address]- 6344 Apr, [facility] [place] [facility] [address] [id number] [place] [address]- 1544 Apr, [facility] [place] [facility] [address] [id number] [place] [address]- 0721 Apr, [facility] [place] [facility] [address] [id number] [place] [address]- 0604 Aug, [facility] [place] [facility] [address] [id number] [place] [address]- 7401 Aug, [facility] [place] [facility] [address] [id number] [place] [address]- 6611 Aug, [facility] [place] [facility] [address] [id number] [place] [address]- 6848 Aug, [facility] [place] [facility] [address] [id number] [place] [address]- 2570 Jul, [facility] [place] [facility] [address] [id number] [place] [address]- 7595 Jun, [facility] [place] [facility] [address] [id number] [place] [address]- 1089 Jun, [facility] [place] [facility] [address] [id number] [place] [address]- 2546 16 Jun, 2012 [facility] [place] [facility] [address] [id number] [place] [address]- 5164 Jun, [facility] [place] [facility] [address] [id number] [place] [address]- 1878 May, [facility] [place] [facility] [address] [id number] [place] [address]- 2059 May, [facility] [place] [facility] [address] [facility] [id number] [place] [address]- 0751 May, [facility] [place] [facility] [address] [id number] [address]- 5058 May, [facility] [place] [facility] [address] [id number] [place] [address]- 5396 May, [facility] [place] [facility] [address] [id number] [place] [address]- 6128 May, [facility] [place] [facility] [address] [facility] [id number] [place] [address]- 0431 May, [facility] [place] [facility] [address] [id number], [place] [address]- 4385 Apr, [facility] [place] [facility] [address] [id number], [place] [address]- 6039 Apr, [facility] [place] [facility] [address] [facility] [id number], [place] [address]- 6248 Apr, [facility] [place] [facility] [address] [id number], [place] [address]- 9068 Apr, [facility] [place] [facility] [address] [id number], [place] [address]- 1246 Apr, [facility] [place] [facility] [address] [id number], [place] [address]- 2771 Apr, [facility] [place] [facility] [address] [facility] [id number], [place] [address]- 9726 Apr, [facility] [place] [facility] [address] [facility] [id number], [place] [address]- 5379 Mar, [facility] [place] [facility] [address] [id number] [place] [address]- 6076 Mar, [facility] [place] [facility] [address] [id number] [place] [address]- 3370 Mar, 2011 [facility] [place] [facility] [address] [id number] [place] [address]- 5568 Mar, 2011 [facility] [place] [facility] [address] [id number] [place] [address]- 5969 Mar, 2011 [facility] [place] [facility] [address] [id number] [place] [address]- 6853 Mar, 2011 [facility] [place] [facility] [address] [id number] [place] [address]- 3141 Mar, [facility] [place] [facility] [address] [id number] [place] [address]- 0933 Mar, [facility] [place] [facility] [address] [id number] [place] [address]- 7749 Mar, [facility] [place] [facility] [address] [id number] [place] [address]- 2218 Mar, [facility] [place] [facility] [address] [id number] [place] [address]- 3772 Mar, [facility] [place] [facility] [address] [id number] [place] [address]- 3370 Mar, [facility] [place] [facility] [address] [id number] [place] [address]- 8047 Feb, [facility] [place] [facility] [address] [id number] [place] [address]- 6111 Jan, [facility] [place] [facility] [address] [id number] [place] [address]- 2744 14 Jan, 2012 [facility] [place] [facility] [address] [id number] [place] [address]- 5595 Jan, [facility] [place] [facility] [address] [id number] [place] [address]- 5681 Jan, [facility] [place] [facility] [address] [id number] [place] [address]- 4467 Jan, [facility] [place] [facility] [address] [id number] [place] [address]- 6136 Dec, [facility] [place] [facility] [address] [id number] [place] [address]- 2789 Dec, [facility] [place] [facility] [address] [id number] [place] [address]- 2832 Nov, [facility] [address] [id number] [place] [address]- 0305 Nov, [facility] [place] [facility] [address] [id number] [place] [address]- 5682 Nov, [facility] [address] [id number] [place] [address]- 1417 October, [facility] [address] [id number] [place] [address]- 2468 October, [facility] [address] [id number] [place] [address]- 4527 October, [facility] [address] [id number] [place] [address]- 0601 October, [facility] [address] [id number] [place] [address]- 5976 October, [facility] [place] [facility] [address] [id number] [place] [address]- 7587 October, [facility] [place] [facility] [address] [id number] [place] [address]- 7601 October, [facility] [place] [facility] [address] [id number] [place] [address]- 5546 Sep, [facility] [place] [facility] [address] [id number] [place] [address]- 3854 Sep, [facility] [place] [facility] [address] [id number] [place] [address]- 3841 26 Sep, 2011 [facility] [place] [facility] [address] [id number] [place] [address]- 3834 25 Sep, 2011 [facility] [place] [facility] [address] [id number] [place] [address]- 3176 24 Sep, 2011 [facility] [place] [facility] [address] [id number] [place] [address]- 9583 19 Sep, 2011 [facility] [place] [facility] [address] [id number] [place] [address]- 3523 17 Sep, 2011 [facility] [place] [facility] [address] [id number] [place] [address]- 1911 16 Sep, 2011 [facility] [place] [facility] [address] [id number] [place] [address]- 8377 16 Sep, 2011 [facility] [place] [facility] [address] [id number] [place] [address]- 7957 14 Sep, 2011 [facility] [place] [facility] [address] [id number] [place] [address]- 3680 13 Sep, 2011 [facility] [place] [facility] [address] [id number] [place] [address]- 9700 10 Sep, 2011 [facility] [place] [facility] [address] [id number] [place] [address]- 1014 09 Sep, 2011 [facility] [place] [facility] [address] [id number] [place] [address]- 8915 27 Aug, 2011 [facility] [place] [facility] [address] [id number] [place] [address]- 2102 Aug, [facility] [place] [facility] [address] [id number] [place] [address]- 0074 08 Aug, 2011 [facility] [place] [facility] [address] [id number] [place] [address]- 9166 06 Aug, 2011 [facility] [place] [facility] [address] [id number] [place] [address]- 9907 28 Jul, 2011 [facility] [place] [facility] [address] [id number] [place] [address]- 4431 22 Jul, 2011 [facility] [address] [id number] [place] [address]- 4486 16 Jul, 2011 [facility] [place] [facility] [address] [id number] [place] [address]- 2546 15 Jul, 2011 [facility] [place] [facility] [address] [id number] [place] [address]- 3726 14 Jul, 2011 [facility] [place] [facility] [address] [id number] [place] [address]- 0001 10 Jul, 2011 [facility] [place] [facility] [address] [id number] [place] [address]- 6742 30 Jun, 2011 [facility] [address] [id number] [place] [address]- 0849 Jun, [facility] [address] [id number] [place] [address]- 6264 Jun, [facility] [address] [id number] [place] [address]- 2710 Jun, [facility] [address] [id number] [place] [address]- 5806 Jun, [facility] [address] [id number] [place] [address]- 7820 27 May, 2011 [facility] [address] [id number] [place] [address]- 9270 May, [facility] [place] [facility] [address] [id number] [place] [address]- 3713 14 May, 2011 [facility] [place] [facility] [address] [id number] [place] [address]- 4209 14 May, 2011 [facility] [place] [facility] [address] [id number] [place] [address]- 0272 12 May, 2011 [facility] [place] [facility] [address] [id number] [address]- 5916 07 May, 2011 [facility] [place] [facility] [address] [id number] [place] [address]39 May, [facility] [place] [facility] [address] [id number] [place] [address]- 5056 Apr, [facility] [place] [facility] [address] [id number] [place] [address]- 7825 Apr, [facility] [place] [facility] [address] [id number] [place] [address]- 5223 Apr, [facility] [place] [facility] [address] [id number] [place] [address]- 2937 Apr, [facility] [place] [facility] [address] [id number] [place] [address]- 9173 Apr, [facility] [place] [facility] [address] [id number] [place] [address]- 3467 Apr, [facility] [place] [facility] [address] [id number] [place] [address]- 6342 Mar, [facility] [place] [facility] [address] [id number] [place] [address] Mar, [facility] [place] [facility] [address] [id number] [place] [address] Mar, [facility] [place] [facility] [address] [id number], [place] [address] Mar, [facility] [place] [facility] [address] [id number], [place] [address] Jan, [facility] [place] [facility] [address] [id number] [place] [address] Dec, [facility] [place] [facility] [address] [id number] [place] [address] Dec, [facility] [place] [facility] [address] [id number] [place] [address] October, [facility] [place] [facility] [address] [id number] [place] [address] 20 Sep, 2010 [facility] [address] [id number] [place] [address] 14 Sep, 2010 [facility] [place] [facility] [address] [id number] [place] [address] 17 Jul, 2010 [facility] [address] [id number] [place] [address] 2546 16 Jul, 2010 [facility] [place] [facility] [address] [id number] [place] [address]40 31 May, 2010 [facility] [address] [id number] [place] [address]46 27 May, 2010 [facility] [address] [id number] [place] [address] 2549 08 May, 2010 [facility] [place] [facility] [address] [id number] [place] [address] 2543 May, [facility] [address] [id number] [place] [address] Apr, [facility] [place] [facility] [address] [id number] [place] [address] Apr, [facility] [address] [id number] [place] [address] Apr, [facility] [place] [facility] [address] [id number] [place] [address]49 Apr, [facility] [place] [facility] [address] [id number] [place] [address] 2548 Apr, [facility] [place] [facility] [address] [id number] [place] [address] 2547 21 Mar, 2010 [facility] [place] [facility] [address] [id number] [place] [address] 14 Mar, 2010 [facility] [place] [facility] [address] [id number] [place] [address] 13 Mar, 2010 [facility] [address] [facility] [id number], [place] [address] Mar, [facility] [address] [facility] [id number], [place] [address] Jan, [facility] [address] [facility] [id number], [place] [address] 15 Dec, 2009 [facility] [address] [facility] [id number], [place] [address] Sep, [facility] [address] [facility] [id number] [address] May, [facility] [address] [facility] [id number], [place] [address] May, [facility] [address] [facility] [id number], [place] [address] May, [facility] [address] [id number], [place] [address] Apr, [facility] [address] [facility] [id number], [place] [address] Apr, [facility] [address] [id number], [place] [address] Apr, [facility] [address] [facility] [id number], [place] [address] Apr, [facility] [address] [facility] [id number], [place] [address] Apr, [facility] [address] [facility] [id number], [place] [address] Mar, [facility] [address] [facility] [id number][place] [address] Mar, [facility] [address] [id number], [place] [address] Jul, IMMUNIZATIONS Vaccine Route Administration Date Status PPSV23 (PNEUMOVAX) IM Intramuscular November 18, 2017 Administered SOCIAL HISTORY Never Assessed REASON FOR VISIT [facility]- [facility] Activity Details Follow Up 1 Year Reason: VITAL SIGNS Height 62 in 2017-11-18 Weight 263.6 lbs 2017-11-18 Temperature 98.3 degrees Fahrenheit 2017-11-18 Heart Rate 100 bpm 2017-11-18 Respiratory Rate 20 2017-11-18 BMI 48.21 kg/m2 2017-11-18 Blood pressure systolic 140 mmHg 2017-11-18 Blood pressure diastolic 84 mmHg 2017-11-18 MEDICATIONS Medication Instructions Dosage Frequency Start Date End Date Duration Status Ondansetron HCl 8 mg 1 tablet by Oral route every 8 hours PRN Jul, Active Just Soles Syringe 23G X 1 as directed Jul, Not-Taking Ropinirole HCl 4 MG Orally Once a day 1 tablet before bedtime 24h 30 days Active Estradiol 0.5 MG Orally Once a day 2 tablet by Oral route 1 time per day 24h Apr, Active Esoterica Regular 2 % Not-Taking Prozac 40 mg Orally Once a day for depression 1 capsules Active Vitamin D 69685 UNIT Orally per day 1 capsule Active Hydrocodone-Acetaminophen 5-325 MG Orally every 6 hrs 1 tablet as needed 6h Active Doxycycline Hyclate 100 MG Orally every 12 hrs 1 capsule 12h Active RESULTS No Results PROCEDURES Procedure Date Ordered Result Body Site [facility] VISIT IPPE/AWV November 18, 2017 ANNUAL HELENA VST; PERSNL PPS INIT November 18, 2017 CLIN DEPRESSION SCREEN DOC November 18, 2017 SINGLE IMMUNIZATION ADMIN November 18, 2017 PT TOBACCO SCREEN RCVD TLK November 18, 2017 FALL RISK ASSESSMENT DOCD November 18, 2017 ADMN PNEUMCOC VAC NO FEE DAY November 18, 2017 PPSV23 (PNEUMOVAX) November 18, 2017 INSTRUCTIONS MEDICATIONS ADMINISTERED No Known Medications [...] 08/2017 Surgical History nephrectomy 03/2017 Hospitalization History Cellulitis-[facility] 12/20/15 Hospitalization History [facility] [place]- Abd pain 03/07/2017 Hospital[facility] History [facility] [place]- Abd pain 03/14/2017 Hospitalization History [facility] [place]- No bowel movement, rash 04/13/2017 Hospitalization History [facility] [place]- Abd pain r/t kidney surgery on 04/17/2017 Hospitalization History [facility] [place]- Abd pain r/t kidney surgery on 04/18/2017 Hospitalization History [facility] [place]- Lower abd pain 04/30/2017 Hospitalization History [facility] [place]- Cannot urinate 05/30/2017 Hospitalization History [facility] [place]- Pancreatitis Sx 06/29/2017 Hospitalization History [facility] [place]- Stomach pain 07/22/2017 Hospitalization History [facility] [place]- Left side pain 08/12/2017 Hospitalization History [facility] [place]- Incision site infection 08/30/2017 Hospitalization History [facility]- Post Op Seroma/Hematoma Left Abdomen. Discharged 09/04/17- Dr Daniel 09/02/2017 Hospitalization History [facility] [place]- Right shoulder and back pain 2017 Hospitalization History ED [place]- Shoulder/Back pain 11/11/2017 Hospitalization History ED [place]- Right shoulder blade pain 12/04/2017 Hospitalization History ED [place]- C-Diff 12/13/2017 Hospitalization History C diff et MRSA 12/27/2017
--- OUTSIDE RECORDS SUMMARY | 2018-02-13 11:07 | XMS REPORT ---
Author Author SAI CARMEN [facility] Address [address] [place] [address] Care Team Providers Care Developmental Behavioral Physician Name Role Phone CORTNEY GIBBSHANY Unavailable PROBLEMS Type Condition ICD9-CM Code MSG69-OB Code Onset Dates Condition Status SNOMED Code Problem Polydipsia R63.1 Active 59402853 Problem Trichotillomania F63.3 Active 04433843 Problem Atelectasis J98.11 Active 90231582 Problem Intestinal malabsorption, unspecified K90.9 Active 68229052 Problem Chronic fatigue R53.82 Active 75625367 Problem Generalized social phobia F40.11 Active 29223422 Problem Restless leg syndrome G25.81 Active 49132253 Problem Moderate episode of recurrent major depressive disorder F33.1 Active 512516036 Problem Chronic post-traumatic stress disorder (PTSD) F43.12 Active 482088534 Problem History of renal cell carcinoma Z85.528 Active 569749434 Problem Chronic tension-type headache, intractable G44.221 Active 506786776 Problem Nodule of left lung R91.1 Active 305486949 Problem Hirsuties L68.0 Active 716393664 Problem FH: polycystic ovary Z84.2 Active 593640628 Problem Morbid (severe) obesity due to excess calories E66.01 Active 106740529 Problem Chronic pancreatitis K86.1 Active 545027469 Problem Hyperlipidemia, mixed E78.2 Active 502984852 Problem Asthma J45.909 Active 293642990 ALLERGIES No Information ENCOUNTERS Encounter Location Date Diagnosis [facility] [id number] [address] Feb, [facility] [id number] [address] Jan, [facility] [id number] [address] 85[address] Jan, [facility] [address] [address] Dec, [facility] [id number] [place] [address] 28664- 4939 Dec, Intestinal malabsorption, unspecified K90.9 and Diarrhea, unspecified R19.7 [facility] [id number] [place] [address] 04920- 0860 Dec, [facility] [id number] [place] [address] 09213- 9093 Dec, Strep throat J02.0 ; Intestinal malabsorption, unspecified K90.9 ; Diarrhea, unspecified R19.7 ; Postoperative seroma involving digestive system after non-digestive system procedure K91.873 ; Hyperlipidemia, mixed E78.2 and BMI 45.0-49.9, adult Z68.42 [facility] [id number] [place] [address] 51984- 7220 Dec, [facility] [id number] [place] [address] 47896- 8281 Dec, Nausea R11.0 [facility] [id number] [place] [address] 67677- 4807 Dec, [facility] [address] [address] Dec, Sore throat J02.9 ; Strep throat J02.0 and BMI 45.0-49.9, adult Z68.42 [facility] [address] [address] 3296 Dec, [facility] [id number] [place] [address] 01010- 5043 Dec, [facility] [address] [address]- 2234 Dec, [facility] [id number] [place] [address] 65176- 4758 Dec, [facility] [address] [address]- 2742 Dec, [facility] [id number] [place] [address] 46658- 6249 Dec, [facility] [id number] [place] [address] 16126- 2418 Dec, [facility] [id number] [place] [address] 49384- 0866 Dec, [facility] [id number] [place] [address] 93010- 0827 Dec, Clostridium difficile colitis A04.72 ; Intractable vomiting with nausea, unspecified vomiting type R11.2 and BMI 45.0-49.9, adult Z68.42 [facility] [id number] [place] [address] 81579- 8420 Dec, [facility] [id number] [address] 4479 Nov, [facility] [id number] [place] [address] 44744- 4645 Nov, [facility] [id number] [place] [address] 15677- 3112 Nov, [facility] [id number] [place] [address] 40799- 6020 Nov, [facility] [address] [address] Nov, [facility] [id number] [place] [address] 60300- 5639 Nov, Hyperlipidemia, mixed E78.2 [facility] [address] [address] Nov, Acute suppurative otitis media of right ear without spontaneous rupture of tympanic membrane, recurrence not specified H66.001 and BMI 45.0-49.9, adult Z68.42 [address] [address] [address]- 7014 Nov, Hyperlipidemia, mixed E78.2 [facility] [id number] [place] [address] 10475- 2005 Nov, [facility] [id number] [place] [address] 51364- 7620 Nov, [facility] [id number] [place] [address] 53857- 9957 Nov, Nodule of left lung R91.1 [id number] [place] [address] 49654- 9183 Nov, Medicare annual wellness visit, initial Z00.00 [...] adult Z68.42 and Encounter for immunization Z23 [facility] [address] [place] [address] 36133- 7637 October, [facility] [address] [place] [address] 96732- 4842 October, Nodule of left lung R91.1 [facility] [facility] [id number] [place] [address] 69733- 9882 October, Nodule of left lung R91.1 [facility] [address] [place] [address] 64953- 6045 October, Recurrent major depressive disorder, in partial remission F33.41 ; Restless leg syndrome G25.81 ; Generalized social phobia F40.11 ; Chronic post-traumatic stress disorder (PTSD) F43.12 ; BMI 45.0-49.9, adult Z68.42 and Trichotillomania F63.3 [facility] [id number] [place] [address] 91117- 5809 October, [facility] [id number] [place] [address] 16854- 4063 Sep, Chronic fatigue R53.82 and BMI 45.0-49.9, adult Z68.42 [facility] [id number] [place] [address] 27672- 1592 Aug, [place] [id number] [place] [address] 31351- 2047 Jul, Restless leg syndrome G25.81 and B12 deficiency E53.8 [place] [address] 83886- 5110 Jul, [place] [address] 96991- 3538 Jul, [facility] [id number] [place] [address] 71413- 9337 Jun, [place] [id number] [place] [address] 62272- 4337 Jun, Fatigue, unspecified type R53.83 ; History of renal cell carcinoma Z85.528 ; Chronic pancreatitis K86.1 ; Restless leg syndrome G25.81 ; Dark urine R82.99 and BMI 45.0-49.9, adult Z68.42 [place] [id number] [place] [address] 67261- 9419 Jun, [place] [address] 93841- 5772 Jun, [facility] [id number] [place] [address] 63171- 2109 Jun, [place] [id number] [place] [address] 76644- 8069 Jun, [place] [address] [address]- 0792 May, Chronic post-traumatic stress disorder (PTSD) F43.12 ; Moderate episode of recurrent major depressive disorder F33.1 ; Trichotillomania F63.3 and Generalized social phobia F40.11 [facility] [id number] [place] [address] 51118- 4653 May, [place] [id number] [place] [address] 31146- 8848 May, Chronic post-traumatic stress disorder (PTSD) F43.12 ; Moderate episode of recurrent major depressive disorder F33.1 ; Trichotillomania F63.3 and Generalized social phobia F40.11 [place] [address] [place] [address] 88969- 5104 May, Hyperlipidemia, mixed E78.2 ; Morbid (severe) obesity due to excess calories E66.01 ; Chronic post-traumatic stress disorder (PTSD) F43.12 ; Moderate episode of recurrent major depressive disorder F33.1 ; Trichotillomania F63.3 and Generalized social phobia F40.11 [address] [address] [place] [address] 33824- 2541 Apr, [place] [address] [place] [address] 16686- 4770 Apr, Hyperlipidemia, mixed E78.2 ; Morbid (severe) obesity due to excess calories E66.01 ; Chronic post-traumatic stress disorder (PTSD) F43.12 ; Moderate episode of recurrent major depressive disorder F33.1 ; Trichotillomania F63.3 and Generalized social phobia F40.11 [place] [id number] [place] [address] 91306- 7172 Apr, Trichotillomania F63.3 ; Generalized social phobia F40.11 ; Chronic post-traumatic stress disorder (PTSD) F43.12 and Moderate episode of recurrent major depressive disorder F33.1 [place] [id number] [place] [address] 30444- 8960 Apr, [facility] [id number] [place] [address] 50183- 1654 Apr, [facility] [id number] [place] [address] 49917- 6642 Mar, Moderate episode of recurrent major depressive disorder F33.1 ; Trichotillomania F63.3 ; Chronic post-traumatic stress disorder (PTSD) F43.12 ; Generalized social phobia F40.11 and Restless leg syndrome G25.81 [facility] [id number] [place] [address] 62502- 5170 Mar, [facility] [id number] [place] [address] 46670- 7678 Mar, [place] [id number] [place] [address] 70922- 4300 Feb, Left kidney mass N28.89 [facility] [id number] [place] [address] 24619- 5543 Jan, [facility] [id number] [place] [address] 61226- 2656 Dec, Polydipsia R63.1 ; Chronic pancreatitis K86.1 and Fatigue, unspecified type R53.83 [place] [id number] [place] [address] 09573- 5875 Nov, [facility] [id number] [place] [address] 43976- 3894 Nov, [facility] [id number] [place] [address] 58434- 3113 Nov, Headache around the eyes R51 [facility] [id number] [place] [address] 43669- 3896 Nov, [facility] [id number] [place] [address] 06800- 1839 October, STD exposure Z20.2 [facility] [id number] [place] [address] 59971- 2160 October, STD exposure Z20.2 [place] [id number] [place] [address] 51172- 1875 October, Chronic post-traumatic stress disorder (PTSD) F43.12 ; Generalized social phobia F40.11 ; Trichotillomania F63.3 and Restless leg syndrome G25.81 [facility] [id number] [place] [address] 56242- 2417 October, [place] [id number] [place] [address] 48004- 0969 Sep, [facility] [id number] [place] [address] 02210- 7709 Aug, [place] [id number] [place] [address] 18848- 2268 Aug, [facility] [id number] [place] [address] 52814- 4697 Aug, Neck mass R22.1 [place] [id number] [place] [address] 58627- 2726 Aug, Atelectasis J98.11 [place] [id number] [place] [address] 00623- 6372 28 Jul, 2016 Hyperlipidemia, mixed E78.2 ; Atypical pneumonia J18.9 and Neck mass R22.1 [place] [address] [place] [address] 84519- 3800 15 Jul, 2016 Hemoptysis R04.2 [place] [id number] [place] [address] 18203- 8295 08 Jul, 2016 Acute non-recurrent pansinusitis J01.40 ; Hemoptysis R04.2 ; Polydipsia R63.1 and Malaise R53.81 [facility] [id number] [place] [address] 07312 -0634 May, Other viral agents as the cause of diseases classified elsewhere B97.89 and Acute upper respiratory infection, unspecified J06.[address] [facility] [id number] [place] [address] 71599 -5996 Mar, Nausea R11.[address] [facility] [id number] [place] [address] 60792 -3232 Dec, Hives L50.9 [place] [address] 46538- 9123 Dec, [facility] [address] 71809 -1283 Dec, Cutaneous abscess of limb, unspecified L02.419 ; Cellulitis of unspecified part of limb L03.119 ; Encounter for incision and drainage procedure Z01.89 and Encounter for recheck of abscess following incision and drainage Z09 [facility] [id number] [place] [address] 43031 -4098 Dec, Abscess of leg, right L02.415 [address] [id number] [place] [address] 35130- 8715 Dec, Cellulitis of unspecified part of limb L03.119 and Cutaneous abscess of limb, unspecified L02.419 [place] [id number] [place] [address] 31372- 4954 Dec, [place] [id number] [place] [address] 54859- 3954 Dec, [facility] [place] [id number] [place] [address] 98599 -9087 Aug, [place] [id number] [place] [address] 23118- 3720 Aug, [facility] [place] [id number] [place] [address] 11542 -7728 Jul, Pain in unspecified wrist M25.539 and Back pain, thoracic M54.[address] [facility] [address] [place] [address] 87267 -2581 Jun, Strain of right wrist, initial encounter S66.911A [facility] [id number] [place] [address] 08479- 6180 11 Jun, 2015 Chronic pancreatitis, unspecified pancreatitis type K86.1 ; Hirsuties L68.0 ; Morbid (severe) obesity due to excess calories E66.01 ; Chronic pancreatitis K86.1 and Asthma J45.909 [facility] [id number] [place] [address] 41253- 6120 May, [place] [address] 19772- 2190 May, Hyperlipidemia, mixed E78.2 and Muscle spasm of back M62.830 [place] [address] 42505- 0715 Apr, [place] [id number] [place] [address] 86027- 8941 Apr, Torticollis M43.6 [facility] [id number] [place] [address] 96110- 2809 Apr, Right-sided thoracic back pain M54.6 [facility] [id number] [place] [address] 69650- 3462 Mar, Rash R21 [facility] [id number] [place] [address] 12045- 9937 Mar, [place] [id number] [place] [address] 63951- 4657 Jan, [facility] [address] 04730- 5723 Dec, [facility] [id number] [place] [address] 06325- 5686 Dec, Urinary frequency 788.41 and Nocturia more than twice per night 788.43 [facility] [address] [address]- 7987 Nov, [facility] [address] [place] [address] 78001- 5319 Nov, [facility] [id number] [place] [address] 59820- 6463 Nov, Abdominal pain 789.00 [facility] [id number] [place] [address] 21226- 1173 October, TDAP DX V06.1 [facility] [id number] [place] [address] 21933- 5871 October, [facility] [id number] [place] [address] 50201- 9835 October, Disturbance of skin sensation 782.0 ; Wrist pain, right 719.43 ; Hyperlipidemia 272.4 and Skin lesion of face 709.9 [facility] [address] [place] [address] 00088- 7998 Sep, [facility] [id number] [place] [address] 41784- 2409 Sep, [facility] [id number] [address]- 0787 Aug, [facility] [address] [address]- 3595 Aug, [facility] [address] [address]- 6670 Aug, [facility] [id number] [place] [address] 45973- 2250 Aug, [facility] [id number] [address]- 7034 Aug, [facility] [id number] [place] [address] 54389- 7453 Aug, [facility] [place] [facility] [address] [id number] [place] [address]- 4153 14 Aug, 2014 [facility] [place] [facility] [address] [id number] [place] [address]- 0988 14 Aug, 2014 [facility] [place] [facility] [address] [id number] [place] [address]- 2681 Aug, [facility] [place] [facility] [address] [id number] [place] [address]- 5173 Aug, [facility] [place] [facility] [address] [id number] [place] [address]- 9059 Aug, [facility] [place] [facility] [address] [id number] [place] [address]- 6760 Aug, [facility] [place] [facility] [address] [id number] [place] [address]- 7587 Aug, [facility] [place] [facility] [address] [id number] [place] [address]- 0660 Aug, [facility] [place] [facility] [address] [id number] [place] [address]- 5748 Jul, [facility] [place] [facility] [address] [id number] [place] [address]- 0669 Jul, 2014 [facility] [place] [facility] [address] [id number] [place] [address]- 8324 Jul, 2014 [facility] [place] [facility] [address] [id number] [place] [address]- 7974 Jul, 2014 [facility] [place] [facility] [address] [id number] [place] [address]- 9530 Jul, [facility] [place] [facility] [address] [id number] [place] [address]- 2165 Jul, [facility] [place] [facility] [address] [id number] [place] [address]- 6662 Jun, [facility] [place] [facility] [address] [id number] [place] [address]- 7858 Jun, [facility] [address] [id number] [place] [address]- 3375 Jun, [facility] [address] [id number] [place] [address]- 9510 Jun, [facility] [address] [id number] [place] [address]- 4623 Jun, [facility] [address] [id number] [place] [address]- 5247 Jun, [facility] [address] [id number] [place] [address]- 2306 Jun, [facility] [address] [id number] [place] [address]- 7709 Jun, [facility] [address] [id number] [place] [address]- 6559 May, [facility] [address] [id number] [place] [address]- 3499 May, [facility] [address] [id number] [place] [address]- 5855 18 May, 2014 [facility] [address] [id number] [place] [address]- 7992 18 May, 2014 [facility] [place] [place] [facility] [address] [id number] [place] [address]- 7633 15 May, 2014 [facility] [address] [id number] [place] [address]- 6204 15 May, 2014 [facility] [place] [facility] [address] [id number] [place] [address]- 0199 May, [facility] [place] [facility] [address] [id number] [place] [address]- 5855 May, [facility] [place] [place] [facility] [address] [id number] [place] [address]- 2303 May, [facility] [place] [facility] [address] [id number] [place] [address]- 2446 May, [facility] [place] [facility] [address] [id number] [place] [address]- 0808 May, [facility] [place] [facility] [address] [id number] [place] [address]- 6306 May, [facility] [place] [facility] [address] [id number] [place] [address] Apr, [facility] [place] [facility] [address] [id number] [place] [address] Apr, [facility] [place] [facility] [address] [id number] [place] [address] Apr, [facility] [place] [facility] [address] [id number] [place] [address] Apr, [facility] [place] [facility] [address] [id number] [place] [address] Apr, [facility] [place] [facility] [address] [id number] [place] [address] Apr, [facility] [place] [facility] [address] [id number] [place] [address] Apr, [facility] [place] [facility] [address] [id number] [place] [address] Apr, [facility] [place] [facility] [address] [id number] [place] [address] Apr, [facility] [place] [facility] [address] [id number] [place] [address] Apr, [facility] [place] [facility] [address] [id number] [place] [address] Apr, [facility] [place] [facility] [address] [id number] [place] [address] Apr, [facility] [place] [facility] [address] [id number] [place] [address] Mar, [facility] [place] [facility] [address] [id number] [place] [address] Mar, [facility] [place] [facility] [address] [id number] [place] [address] Mar, [facility] [place] [facility] [address] [id number] [place] [address] Mar, [facility] [place] [facility] [address] [id number] [place] [address] Feb, [facility] [place] [facility] [address] [id number] [place] [address] Feb, [facility] [place] [facility] [address] [id number] [place] [address] 05 Feb, 2014 [facility] [place] [facility] [address] [id number] [place] [address] Feb, [facility] [place] [facility] [address] [id number] [place] [address] Feb, [facility] [place] [facility] [address] [id number] [place] [address] Feb, [facility] [place] [facility] [address] [id number] [place] [address] Jan, [facility] [place] [facility] [address] [id number] [place] [address] Jan, [facility] [place] [facility] [address] [id number] [place] [address] Jan, [facility] [place] [facility] [address] [id number] [place] [address] Jan, [facility] [place] [facility] [address] [id number] [place] [address] Jan, [facility] [place] [facility] [address] [id number] [place] [address] Jan, [facility] [place] [facility] [address] [id number] [place] [address] Jan, 2013 [facility] [place] [facility] [address] [id number] [place] [address] Jan, [facility] [place] [facility] [address] [id number] [place] [address] Jan, [facility] [place] [facility] [address] [id number] [place] [address] Jan, [facility] [place] [facility] [address] [id number] [place] [address] 42[address] Jan, [facility] [place] [facility] [address] [id number] [place] [address] 7660 Jan, [facility] [place] [facility] [address] [id number] [place] [address] 3031 Jan, [facility] [place] [facility] [address] [id number] [place] [address]- 9667 Jan, [facility] [place] [facility] [address] [id number] [place] [address]- 7415 Dec, [facility] [place] [facility] [address] [id number] [place] [address]- 0801 Dec, [facility] [place] [facility] [address] [id number] [place] [address]- 1384 Dec, [facility] [place] [facility] [address] [id number] [place] [address]- 0846 Dec, [facility] [place] [facility] [address] [id number] [place] [address]- 5[address] Nov, [facility] [place] [facility] [address] [id number] [place] [address]- 7946 Nov, [facility] [place] [facility] [address] [id number] [place] [address]- 0921 Nov, [facility] [place] [facility] [address] [id number] [place] [address]- 7319 Nov, [facility] [place] [facility] [address] [id number] [place] [address]- 6875 Nov, [facility] [place] [facility] [address] [id number] [place] [address]- 7123 October, [facility] [place] [facility] [address] [id number] [place] [address] 1929 October, [facility] [place] [facility] [address] [id number] [place] [address]- 4259 October, [facility] [place] [facility] [address] [id number] [place] [address]- 6115 October, [facility] [place] [facility] [address] [id number] [place] [address]- 8874 October, [facility] [place] [facility] [address] [id number] [place] [address]- 9566 October, [facility] [place] [facility] [address] [id number] [place] [address]- 0469 October, [facility] [place] [facility] [address] [id number] [place] [address]- 4791 October, [facility] [place] [facility] [address] [id number] [place] [address]- 9284 October, [facility] [place] [facility] [address] [id number] [place] [address]- 0332 October, [facility] [place] [facility] [address] [id number] [place] [address]- 2881 October, [facility] [place] [facility] [address] [id number] [place] [address]- 2911 October, [facility] [place] [facility] [address] [id number] [place] [address]- 0909 October, [facility] [place] [facility] [address] [id number] [place] [address]- 1693 October, [facility] [place] [facility] [address] [id number] [place] [address]- 6531 17 Sep, 2013 [facility] [place] [facility] [address] [id number] [place] [address]- 0778 17 Sep, 2013 [facility] [place] [facility] [address] [id number] [place] [address]- 4428 Sep, [facility] [place] [facility] [address] [id number] [place] [address]- 8251 Sep, [facility] [place] [facility] [address] [id number] [place] [address]- 3957 Sep, [facility] [place] [facility] [address] [id number] [place] [address]- 1307 Sep, [facility] [place] [facility] [address] [id number] [place] [address]- 6829 Sep, [facility] [place] [facility] [address] [id number] [place] [address]- 4605 Sep, [facility] [place] [facility] [address] [id number] [place] [address]- 6902 Sep, [facility] [place] [facility] [address] [id number] [place] [address]- 9833 Sep, [facility] [place] [facility] [address] [id number] [place] [address]- 0556 Sep, [facility] [place] [facility] [address] [id number] [place] [address]- 4352 Sep, [facility] [place] [facility] [address] [id number] [place] [address]- 9929 Sep, [facility] [place] [facility] [address] [id number] [place] [address]- 5086 Sep, [facility] [place] [facility] [address] [id number] [place] [address]- 8984 Sep, [facility] [place] [facility] [address] [id number] [place] [address]- 2391 Aug, [facility] [place] [facility] [address] [id number] [place] [address]- 2350 Aug, [facility] [place] [facility] [address] [id number] [place] [address]- 4748 Aug, [facility] [place] [facility] [address] [id number] [place] [address]- 2954 Aug, [facility] [place] [facility] [address] [id number] [place] [address]- 6208 Jul, [facility] [place] [facility] [address] [id number] [place] [address]- 0868 Jul, [facility] [place] [facility] [address] [id number] [place] [address]- 7167 Jul, [facility] [place] [facility] [address] [id number] [place] [address]- 1843 Jul, [facility] [place] [facility] [address] [id number] [place] [address]- 8249 Jun, [facility] [place] [facility] [address] [id number] [place] [address]- 0558 Jun, [facility] [place] [facility] [address] [id number] [place] [address]- 4717 Jun, [facility] [place] [facility] [address] [id number] [place] [address]- 1451 Jun, [facility] [place] [facility] [address] [id number] [place] [address]- 4874 Jun, [facility] [place] [facility] [address] [id number] [place] [address]- 3101 Jun, [facility] [place] [facility] [address] [id number] [place] [address]- 4087 Jun, [facility] [place] [facility] [address] [id number] [place] [address]- 6864 Jun, [facility] [place] [facility] [address] [id number] [place] [address]- 8773 20 May, 2013 [facility] [address] [id number] [place] [address]- 3612 20 May, 2013 [facility] [address] [id number] [place] [address] 18 May, 2013 [facility] [address] [id number] [place] [address] 18 May, 2013 [facility] [address] [id number] [place] [address]- 2556 17 May, 2013 [facility] [address] [id number] [place] [id number] 17 May, 2013 [facility] [address] [id number] [place] [address]- 9090 17 May, 2013 [facility] [address] [id number] [place] [address]- 0409 17 May, 2013 [facility] [address] [id number] [place] [address]- 6796 16 May, 2013 [facility] [address] [id number] [place] [address]- 9380 16 May, 2013 [facility] [address] [id number] [place] [address]- 2801 14 May, 2013 [facility] [address] [id number] [place] [address]- 3359 14 May, 2013 [facility] [address] [id number] [place] [address]- 3371 13 May, 2013 [facility] [address] [id number] [place] [address]- 9135 13 May, 2013 [facility] [place] [facility] [address] [id number] [place] [address]137 12 May, 2013 [facility] [address] [id number] [place] [address]- 8469 12 May, 2013 [facility] [place] [facility] [address] [id number] [place] [address]- 6955 May, [facility] [address] [id number] [place] [address]- 7432 May, [facility] [address] [id number] [place] [address]- 7969 Apr, [facility] [address] [id number] [place] [address]- 0575 Apr, [facility] [address] [id number] [place] [address]- 4501 Apr, [facility] [address] [id number] [place] [address]- 1604 Apr, [facility] [address] [id number] [place] [address]- 2838 Aug, [facility] [address] [id number] [place] [address]- 9703 Aug, [facility] [address] [id number] [place] [address]- 4263 Aug, [facility] [address] [id number] [place] [address]- 1351 Aug, [facility] [address] [id number] [place] [address]- 0208 Jul, [facility] [address] [id number] [place] [address]- 0880 Jun, [facility] [address] [id number] [place] [address]- 2157 Jun, [facility] [address] [id number] [place] [address]- 2546 Jun, [facility] [address] [id number] [place] [address]- 2546 Jun, [facility] [address] [id number] [place] [address]- 6364 May, [facility] [place] [facility] [address] [id number] [place] [address]- 2937 May, [facility] [place] [facility] [address] [id number] [place] [address]- 6763 May, [facility] [place] [facility] [address] [id number] [place] [address]691 May, [facility] [place] [facility] [address] [id number] [place] [address]- 5736 May, [facility] [place] [facility] [address] [id number] [place] [address]- 9002 May, [facility] [place] [facility] [address] [id number] [place] [address]- 9532 May, [facility] [place] [facility] [address] [facility] [id number] [place] [address]- 0002 Apr, [facility] [place] [facility] [address] [id number] [place] [address]- 8638 Apr, [facility] [place] [facility] [address] [id number] [place] [address]- 0360 Apr, [facility] [place] [facility] [address] [facility] [id number] [place] [address]- 2635 Apr, [facility] [place] [facility] [address] [id number] [place] [address]- 1830 Apr, [facility] [place] [facility] [address] [id number] [place] [address]- 1699 Apr, [facility] [place] [facility] [address] [id number] [place] [address]- 9360 Apr, [facility] [place] [facility] [address] [id number] [place] [address]- 9258 Mar, [facility] [place] [facility] [address] [id number] [place] [address]- 5234 Mar, [facility] [place] [facility] [address] [id number] [place] [address]- 9140 19 Mar, 2012 [facility] [place] [facility] [address] [id number] [place] [address]- 8591 Mar, 2011 [facility] [place] [facility] [address] [id number] [place]99 Mar, [facility] [place] [facility] [address] [id number] [place] [address]- 2206 Mar, [facility] [place] [facility] [address] [id number] [place] [address]- 9573 Mar, [facility] [place] [facility] [address] [id number] [place] [address]118 Mar, [facility] [place] [facility] [address] [id number] [place] [address]- 2895 Mar, [facility] [place] [facility] [address] [id number] [place] [address]- 9848 Mar, [facility] [place] [facility] [address] [id number] [place] [address]- 6664 Mar, [facility] [place] [facility] [address] [id number] [place] [address]- 7842 Mar, [facility] [place] [facility] [address] [facility] [id number] [place] [address]- 0793 Feb, [facility] [place] [facility] [address] [id number] [place] [address]- 7587 Jan, [facility] [place] [facility] [address] [id number] [place] [address]- 2184 Jan, [facility] [place] [facility] [address] [id number] [place] [address]- 6014 Jan, [facility] [place] [facility] [address] [id number] [place] [address]- 3770 Jan, [facility] [place] [facility] [address] [facility] [id number] [place] [address]- 2677 Jan, [facility] [place] [facility] [address] [id number] [place] [address]- 9975 Dec, [facility] [place] [facility] [address] [id number] [place] [address]- 6914 Dec, [facility] [place] [facility] [address] [id number] [place] [address]- 6150 Nov, [facility] [place] [facility] [address] [id number] [place] [address]- 5975 Nov, [facility] [place] [facility] [address] [id number] [place] [address]- 6728 Nov, [facility] [place] [facility] [address] [id number] [place] [address]- 7534 October, [facility] [address] [id number] [place] [address]- 3300 October, [facility] [address] [id number] [place] [address]- 6879 October, [facility] [address] [id number] [place] [address]- 2132 October, [facility] [place] [facility] [address] [id number] [place] [address]- 1399 October, [facility] [place] [facility] [address] [id number] [place] [address]- 7710 October, [facility] [place] [facility] [address] [id number] [place] [address]- 3963 October, [facility] [place] [facility] [address] [id number] [place] [address]- 4303 Sep, [facility] [place] [facility] [address] [id number] [place] [address]- 2974 Sep, [facility] [place] [facility] [address] [id number] [place] [address]- 6042 Sep, [facility] [place] [place] [facility] [address] [id number] [place] [address]- 4607 25 Sep, 2011 [facility] [place] [facility] [address] [id number] [place] [address]- 0363 24 Sep, 2011 [facility] [place] [facility] [address] [id number] [place] [address]- 0169 19 Sep, 2011 [facility] [place] [facility] [address] [id number] [place] [address]- 5545 17 Sep, 2011 [facility] [place] [facility] [address] [id number] [place] [address]- 2990 16 Sep, 2011 [facility] [place] [facility] [address] [id number] [place] [address]- 1492 16 Sep, 2011 [facility] [place] [facility] [address] [id number] [place] [address]- 5588 14 Sep, 2011 [facility] [place] [facility] [address] [id number] [place] [address]- 2211 13 Sep, 2011 [facility] [place] [facility] [address] [id number] [place] [address]- 4238 10 Sep, 2011 [facility] [place] [facility] [address] [id number] [place] [address]- 5755 09 Sep, 2011 [facility] [place] [facility] [address] [id number] [place] [address]- 6153 27 Aug, 2011 [facility] [place] [facility] [address] [id number] [place] [address]- 6745 12 Aug, 2011 [facility] [place] [facility] [address] [id number] [place] [address]- 0902 08 Aug, 2011 [facility] [place] [facility] [address] [id number] [place] [address]- 9955 06 Aug, 2011 [facility] [place] [facility] [address] [id number] [place] [address]- 4779 28 Jul, 2011 [facility] [place] [facility] [address] [id number] [place] [address]- 3317 Jul, [facility] [place] [facility] [address] [id number] [place] [address]- 7692 16 Jul, 2011 [facility] [address] [id number] [place] [address]- 7506 15 Jul, 2011 [facility] [place] [facility] [address] [id number] [place] [address]- 3466 14 Jul, 2011 [facility] [place] [facility] [address] [id number] [place] [address]- 1846 10 Jul, 2011 [facility] [place] [facility] [address] [id number] [place] [address]- 3162 30 Jun, 2011 [facility] [place] [facility] [address] [id number] [place] [address]- 9632 05 Jun, 2011 [facility] [address] [id number] [place] [address]- 6662 Jun, [facility] [address] [id number] [place] [address]- 6845 Jun, [facility] [address] [id number] [place] [address]- 0748 Jun, [facility] [address] [id number] [place] [address]- 7786 May, [facility] [address] [id number] [place] [address]- 6142 May, [facility] [place] [place] [facility] [address] [id number] [place] [address]- 5356 14 May, 2011 [facility] [place] [place] [facility] [address] [id number] [place] [address] 2542 14 May, 2011 [facility] [place] [facility] [address] [id number] [place] [address]- 5276 12 May, 2011 [facility] [place] [facility] [address] [id number] [place] [address] 2546 07 May, 2011 [facility] [place] [facility] [address] [id number] [place] [address]- 5324 May, [facility] [place] [facility] [address] [id number] [place] [address]- 0118 Apr, [facility] [place] [facility] [address] [id number] [place] [address]- 3532 Apr, [facility] [place] [facility] [address] [id number] [place] 5737 Apr, [facility] [place] [facility] [address] [id number] [place] [address]- 3478 Apr, [facility] [place] [facility] [address] [id number] [place] [address]- 9348 Apr, [facility] [place] [facility] [address] [id number] [place] [address]- 0580 Apr, [facility] [place] [facility] [address] [id number] [place] [address]- 4921 Mar, [facility] [place] [facility] [address] [id number] [place] [address]- 6508 Mar, [facility] [place] [facility] [address] [id number] [place] [address]- 7277 Mar, [facility] [place] [facility] [address] [id number] [place] [address]- 5091 Mar, [facility] [place] [facility] [address] [id number] [place] [address]- 8795 Jan, [facility] [place] [facility] [address] [id number] [place] [address]- 9360 Dec, [facility] [place] [facility] [address] [id number] [place] [address]- 8518 Dec, [facility] [place] [facility] [address] [id number] [place] [address]- 0328 October, [facility] [place] [facility] [address] [id number] [place] [address]- 8573 Sep, [facility] [place] [facility] [address] [id number] [place] [address]- 4257 14 Sep, 2010 [facility] [address] [id number] [place] [address]- 1446 17 Jul, 2010 [facility] [address] [id number] [place] [address] 2546 16 Jul, 2010 [facility] [address] [id number] [place] [address]- 3746 31 May, 2010 [facility] [place] [facility] [address] [id number] [place] [address] 2540 27 May, 2010 [facility] [address] [id number] [place] [address], [place] [address]- 1601 08 May, 2010 [facility] [address] [id number] [place] [address]- 1376 06 May, 2010 [facility] [address] [id number] [place] [address]- 3002 Apr, [facility] [address] [id number] [place] [address]- 1292 Apr, [facility] [address] [id number] [place] [address] Apr, [facility] [address] [facility] [id number] [place] [address] 18 Apr, 2010 [facility] [place] [facility] [address] [id number] [place] [address] Apr, [facility] [place] [facility] [address] [id number] [place] [address] 21 Mar, 2010 [facility] [place] [facility] [address] [id number] [place] [address] 14 Mar, 2010 [facility] [place] [facility] [address] [id number] [place] [address] 13 Mar, 2010 [facility] [place] [facility] [address] [id number] [place] [address] Mar, [facility] [id number] [address] Jan, [facility] [id number] [address] Dec, [facility] [id number] [address] Sep, [facility] [id number] [address] May, [facility] [address] [facility] [id number] [place] [address] May, [facility] [id number] [address] May, [facility] [id number] [address] Apr, [facility] [id number] [address] Apr, [facility] [id number] [address] Apr, [facility] [id number] [address] Apr, [facility] [id number] [address] Apr, [facility] [id number] [address] Mar, [facility] [id number] [address] Mar, [facility] [id number] [address] Jul, IMMUNIZATIONS No Known Immunizations SOCIAL HISTORY Never Assessed REASON FOR VISIT order clarification PLAN OF CARE VITAL SIGNS MEDICATIONS Unknown [...] Cellulitis-[facility] 12/20/15 Hospitalization History [facility]- Abd pain 03/07/2017 [facility] History [facility]- Abd pain 03/14/2017 Hospital[facility] History [facility]- No bowel movement, rash 04/13/2017 Hospitalization History [facility]- Abd pain r/t kidney surgery on 04/17/2017 [facility]ization History [facility]- Abd pain r/t kidney surgery on 04/18/2017 Hospitalization History [facility]- Lower abd pain 04/30/2017 Hospitalization History [facility]- Cannot urinate 05/30/2017 Hospitalization History [facility]- Pancreatitis Sx 06/29/2017 Hospitalization History [facility]- Stomach pain 07/22/2017 Hospital[facility] History [facility]- Left side pain 08/12/2017 Hospitalization History [facility]- Incision site infection 08/30/2017 Hospitalization History [facility]- Post Op Seroma/Hematoma Left Abdomen. Discharged 09/04/17- Dr Daniel 09/02/2017 Hospitalization History [facility]- Right shoulder and back pain 2017 Hospitalization History [facility]- Shoulder/Back pain 11/11/2017 Hospitalization History [facility]- Right shoulder blade pain 12/04/2017 Hospitalization History [facility]- C-Diff 12/13/2017 Hospitalization History C diff et MRSA 12/27/2017
--- OUTSIDE RECORDS SUMMARY | 2018-02-13 11:07 | XMS REPORT ---
Author Author GEORGES GRAHAM [facility] Address [address] [place] [address] Care Team Providers Care Dental Service Chief Name Role Phone GEORGES GRAHAM Unavailable PROBLEMS Type Condition ICD9-CM Code DKL60-OA Code Onset Dates Condition Status SNOMED Code Problem Polydipsia R63.1 Active 02652567 Problem Trichotillomania F63.3 Active 24763706 Problem Atelectasis J98.11 Active 04008501 Problem Intestinal malabsorption, unspecified K90.9 Active 98300386 Problem Chronic fatigue R53.82 Active 79419984 Problem Generalized social phobia F40.11 Active 81895294 Problem Restless leg syndrome G25.81 Active 01240568 Problem Moderate episode of recurrent major depressive disorder F33.1 Active 752339446 Problem Chronic post-traumatic stress disorder (PTSD) F43.12 Active 507483310 Problem History of renal cell carcinoma Z85.528 Active 811430679 Problem Chronic tension-type headache, intractable G44.221 Active 673876321 Problem Nodule of left lung R91.1 Active 723870248 Problem Hirsuties L68.0 Active 902567422 Problem FH: polycystic ovary Z84.2 Active 880455698 Problem Morbid (severe) obesity due to excess calories E66.01 Active 159006351 Problem Chronic pancreatitis K86.1 Active 546558502 Problem Hyperlipidemia, mixed E78.2 Active 779171095 Problem Asthma J45.909 Active 178498763 ALLERGIES No Information ENCOUNTERS Encounter Location Date Diagnosis [facility] [address] [facility] [id number] [address] Feb, [facility] [id number] [address] Jan, [facility] [id number], [place] [address] 16[address] Jan, [facility] [address], [place] [address] 7968 Dec, [facility] [id number] [place] [address] 07964- 7484 Dec, Intestinal malabsorption, unspecified K90.9 and Diarrhea, unspecified R19.7 [facility] [id number] [place] [address] 63657- 5399 Dec, [facility] [id number] [place] [address] 23067- 7163 Dec, Strep throat J02.0 ; Intestinal malabsorption, unspecified K90.9 ; Diarrhea, unspecified R19.7 ; Postoperative seroma involving digestive system after non-digestive system procedure K91.873 ; Hyperlipidemia, mixed E78.2 and BMI 45.0-49.9, adult Z68.42 [facility] [id number] [place] [address] 91345- 9380 Dec, [facility] [id number] [place] [address] 99042- 8836 Dec, Nausea R11.0 [facility] [id number] [place] [address] 55271- 6259 Dec, [facility] [address], [place] [address] Dec, Sore throat J02.9 ; Strep throat J02.0 and BMI 45.0-49.9, adult Z68.42 [facility] [address], [place] [address] 5272 Dec, [facility] [id number] [place] [address] 52145- 8557 Dec, [facility] [id number] [place] [address] 40609- 4153 Dec, [facility] [id number] [place] [address] 96894- 9999 Dec, [facility] [address], [place] [address] 3515 Dec, [facility] [id number] [place] [address] 62959- 2833 Dec, [facility] [address], [place] [address]- 7828 Dec, [facility] [id number] [place] [address] 14537- 8751 Dec, [facility] [id number] [place] [address] 58559- 0246 Dec, Clostridium difficile colitis A04.72 ; Intractable vomiting with nausea, unspecified vomiting type R11.2 and BMI 45.0-49.9, adult Z68.42 [facility] [id number] [place] [address] 93162- 2356 Dec, [facility] [address], [place] [address]- 5929 Nov, [facility] [id number] [place] [address] 45869- 8386 Nov, [facility] [address], [place] [address]- 7169 Nov, [facility] [address], [place] [address] 8620 Nov, [facility] [address], [place] [address] Nov, [facility] [id number] [place] [address] 65216- 8297 Nov, Hyperlipidemia, mixed E78.2 [facility] [address], [place] [address] Nov, Acute suppurative otitis media of right ear without spontaneous rupture of tympanic membrane, recurrence not specified H66.001 and BMI 45.0-49.9, adult Z68.42 [place] [address], [place] [address]- 0829 12 Nov, 2017 Hyperlipidemia, mixed E78.2 [place] [address], [place] [address]- 4536 Nov, [place] [id number] [place] [address] 76273- 6694 Nov, [place] [id number] [place] [address] 15360- 4228 Nov, Nodule of left lung R91.1 [place] [id number] [place] [address] 01291- 0267 04 Nov, 2017 Medicare annual wellness visit, [...] adult Z68.42 and Encounter for immunization Z23 [place] [id number] [place] [address] 35389- 1075 October, [place] [id number] [place] [address] 79037- 0175 October, Nodule of left lung R91.1 [place] [id number] [place] [address] 14303- 5364 October, Nodule of left lung R91.1 [address] [place] [address] 47931- 0299 October, Recurrent major depressive disorder, in partial remission F33.41 ; Restless leg syndrome G25.81 ; Generalized social phobia F40.11 ; Chronic post-traumatic stress disorder (PTSD) F43.12 ; BMI 45.0-49.9, adult Z68.42 and Trichotillomania F63.3 [place] [id number] [place] [address] 05860- 5967 October, [facility] [id number] [place] [address] 82371- 8192 Sep, Chronic fatigue R53.82 and BMI 45.0-49.9, adult Z68.42 [place] [address] 04820- 6517 Aug, [place] [address] 68746- 2512 Jul, Restless leg syndrome G25.81 and B12 deficiency E53.8 [place] [address] 68247- 3941 Jul, [place] [address] 97639- 4964 Jul, [place] [id number] [place] [address] 99021- 4810 Jun, [place] [id number] [place] [address] 21709- 9883 Jun, Fatigue, unspecified type R53.83 ; History of renal cell carcinoma Z85.528 ; Chronic pancreatitis K86.1 ; Restless leg syndrome G25.81 ; Dark urine R82.99 and BMI 45.0-49.9, adult Z68.42 [place] [id number] [place] [address] 10270- 3103 Jun, [place] [id number] [place] [address] 12273- 3137 Jun, [facility] [id number] [place] [address] 53940- 0070 Jun, [place] [id number] [place] [address] 12320- 0290 Jun, [place] [address], [place] [address]- 2077 May, Chronic post-traumatic stress disorder (PTSD) F43.12 ; Moderate episode of recurrent major depressive disorder F33.1 ; Trichotillomania F63.3 and Generalized social phobia F40.11 [place] [address] [place] [address] 38532- 5526 May, [place] [id number] [place] [address] 46148- 5335 May, Chronic post-traumatic stress disorder (PTSD) F43.12 ; Moderate episode of recurrent major depressive disorder F33.1 ; Trichotillomania F63.3 and Generalized social phobia F40.11 [place] [address] [place] [address] 50105- 8446 May, Hyperlipidemia, mixed E78.2 ; Morbid (severe) obesity due to excess calories E66.01 ; Chronic post-traumatic stress disorder (PTSD) F43.12 ; Moderate episode of recurrent major depressive disorder F33.1 ; Trichotillomania F63.3 and Generalized social phobia F40.11 [place] [id number] [place] [address] 48352- 8093 Apr, [place] [address] [place] [address] 13536- 4010 Apr, Hyperlipidemia, mixed E78.2 ; Morbid (severe) obesity due to excess calories E66.01 ; Chronic post-traumatic stress disorder (PTSD) F43.12 ; Moderate episode of recurrent major depressive disorder F33.1 ; Trichotillomania F63.3 and Generalized social phobia F40.11 [place] [address] [place] [address] 61032- 1550 Apr, Trichotillomania F63.3 ; Generalized social phobia F40.11 ; Chronic post-traumatic stress disorder (PTSD) F43.12 and Moderate episode of recurrent major depressive disorder F33.1 [place] [id number] [place] [address] 68242- 4883 Apr, [facility] [id number] [place] [address] 21134- 0106 Apr, [facility] [id number] [place] [address] 81532- 3112 Mar, Moderate episode of recurrent major depressive disorder F33.1 ; Trichotillomania F63.3 ; Chronic post-traumatic stress disorder (PTSD) F43.12 ; Generalized social phobia F40.11 and Restless leg syndrome G25.81 [facility] [id number] [place] [address] 99660- 8924 Mar, [facility] [id number] [place] [address] 22982- 8267 Mar, [place] [id number] [place] [address] 14881- 7079 Feb, Left kidney mass N28.89 [facility] [id number] [place] [address] 44995- 2392 Jan, [facility] [id number] [place] [address] 62216- 1066 Dec, Polydipsia R63.1 ; Chronic pancreatitis K86.1 and Fatigue, unspecified type R53.83 [place] [id number] [place] [address] 63751- 2741 Nov, [facility] [id number] [place] [address] 13836- 8321 Nov, [facility] [id number] [place] [address] 95748- 3780 Nov, Headache around the eyes R51 [facility] [id number] [place] [address] 26841- 9516 Nov, [facility] [id number] [place] [address] 02837- 7535 October, STD exposure Z20.2 [facility] [id number] [place] [address] 35610- 5627 October, STD exposure Z20.2 [facility] [id number] [place] [address] 63028- 1855 October, Chronic post-traumatic stress disorder (PTSD) F43.12 ; Generalized social phobia F40.11 ; Trichotillomania F63.3 and Restless leg syndrome G25.81 [place] [id number] [place] [address] 41103- 7632 October, [place] [id number] [place] [address] 18239- 7341 Sep, [facility] [id number] [place] [address] 62260- 6958 Aug, [place] [id number] [place] [address] 38823- 3689 Aug, [facility] [id number] [place] [address] 06554- 8747 Aug, Neck mass R22.1 [place] [id number] [place] [address] 45412- 5069 Aug, Atelectasis J98.11 [place] [id number] [place] [address] 01055- 5410 28 Jul, 2016 Hyperlipidemia, mixed E78.2 ; Atypical pneumonia J18.9 and Neck mass R22.1 [place] [address] [place] [address] 64186- 6097 15 Jul, 2016 Hemoptysis R04.2 [place] [id number] [place] [address] 55767- 8108 08 Jul, 2016 Acute non-recurrent pansinusitis J01.40 ; Hemoptysis R04.2 ; Polydipsia R63.1 and Malaise R53.[address] [facility] [id number] [place] [address] 43976 -3495 May, Other viral agents as the cause of diseases classified elsewhere B97.89 and Acute upper respiratory infection, unspecified J06.9 [facility] [place] [id number] [place] [address] 17500 -9702 Mar, Nausea R11.0 [facility] [place] [id number] [place] [address] 19003 -5110 Dec, Hives L50.[address] 80932- 8869 Dec, [facility] [address] 58850 -0967 Dec, Cutaneous abscess of limb, unspecified L02.419 ; Cellulitis of unspecified part of limb L03.119 ; Encounter for incision and drainage procedure Z01.89 and Encounter for recheck of abscess following incision and drainage Z09 [facility] [place] [id number] [place] [address] 82662 -0142 Dec, Abscess of leg, right L02.[address] 12135- 5255 Dec, Cellulitis of unspecified part of limb L03.119 and Cutaneous abscess of limb, unspecified L02.419 [place] [id number] [place] [address] 29291- 9289 Dec, [place] [id number] [place] [address] 91650- 2764 Dec, [facility] [place] [id number] [place] [address] 50630 -8001 Aug, [place] [id number] [place] [address] 61372- 7197 Aug, [facility] [place] [id number] [place] [address] 04443 -7390 Jul, Pain in unspecified wrist M25.539 and Back pain, thoracic M54.6 [facility] [address] [place] [address] 10296 -3642 Jun, Strain of right wrist, initial encounter S66.911A [facility] [id number] [place] [address] 60150- 6558 11 Jun, 2015 Chronic pancreatitis, unspecified pancreatitis type K86.1 ; Hirsuties L68.0 ; Morbid (severe) obesity due to excess calories E66.01 ; Chronic pancreatitis K86.1 and Asthma J45.909 [facility] [id number] [place] [address] 22956- 5132 May, [place] [address] 81679- 9529 May, Hyperlipidemia, mixed E78.2 and Muscle spasm of back M62.830 [place] [address] 26647- 9058 Apr, [place] [id number] [place] [address] 33800- 5022 Apr, Torticollis M43.6 [facility] [id number] [place] [address] 79040- 8536 Apr, Right-sided thoracic back pain M54.6 [facility] [id number] [place] [address] 73629- 8848 Mar, Rash R21 [facility] [id number] [place] [address] 55393- 1128 Mar, [place] [id number] [place] [address] 07777- 1733 Jan, [facility] [address] 33910- 7243 Dec, [facility] [id number] [place] [address] 40760- 3124 Dec, Urinary frequency 788.41 and Nocturia more than twice per night 788.43 [facility] [address], [place] [address]- 6334 Nov, [facility] [address] [place] [address] 47911- 9906 Nov, [facility] [id number] [place] [address] 54660- 9765 Nov, Abdominal pain 789.00 [facility] [id number] [place] [address] 80752- 7820 October, TDAP DX V06.1 [facility] [id number] [place] [address] 87398- 0360 October, [facility] [id number] [place] [address] 04676- 3898 October, Disturbance of skin sensation 782.0 ; Wrist pain, right 719.43 ; Hyperlipidemia 272.4 and Skin lesion of face 709.9 [facility] [address], [place] [address]- 7447 Sep, [facility] [id number] [place] [address] 60281- 0890 Sep, [facility] [address], [place] [address]- 8681 Aug, [facility] [address], [place] [address]- 2043 Aug, [facility] [address], [place] [address]- 4358 Aug, [facility] [id number] [address]- 1927 Aug, [facility] [address] 7011 Aug, [facility] [id number] [place] [address] 189841- 2976 Aug, [facility] [place] [facility] [address] [id number] [place] [address]- 1106 14 Aug, 2014 [facility] [place] [facility] [address] [id number] [place] [address]- 1535 14 Aug, 2014 [facility] [place] [facility] [address] [id number] [place] [address]- 5796 Aug, [facility] [place] [facility] [address] [id number] [place] [address]- 6928 Aug, [facility] [place] [facility] [address] [id number] [place] [address]- 3449 Aug, [facility] [place] [facility] [address] [id number] [place] [address]- 9332 Aug, [facility] [place] [facility] [address] [id number] [place] [address]- 9411 Aug, [facility] [place] [facility] [address] [id number] [place] [address]- 1460 Aug, [facility] [place] [facility] [address] [id number] [place] [address]- 3574 Jul, [facility] [place] [facility] [address] [id number] [place] [address]- 7125 Jul, [facility] [place] [facility] [address] [id number], [place] [address]- 4415 Jul, 2014 [facility] [place] [facility] [address] [id number], [place] [address]- 5869 Jul, [facility] [place] [facility] [address] [id number] [place] [address]- 7663 Jul, [facility] [place] [facility] [address] [id number] [place] [address]- 4629 Jul, [facility] [place] [facility] [address] [id number] [place] [address]- 8841 Jun, [facility] [place] [facility] [address] [id number] [place] [address]- 8010 Jun, [facility] [address] [id number] [place] [address]- 8884 Jun, [facility] [address] [id number] [place] [address]- 2252 Jun, [facility] [address] [id number] [place] [address]- 8829 Jun, [facility] [address] [id number] [place] [address]- 4943 Jun, [facility] [address] [id number] [place] [address]- 2280 Jun, [facility] [address] [id number] [place] [address]- 8813 Jun, [facility] [address] [id number] [place] [address]- 7246 May, [facility] [address] [id number] [place] [address]- 3154 May, [facility] [address] [id number] [place] [address]- 3947 18 May, 2014 [facility] [address] [id number] [place] [address]- 0539 18 May, 2014 [facility] [address] [id number] [place] [address]- 5884 15 May, 2014 [facility] [address] [id number] [place] [address]- 1055 15 May, 2014 [facility] [place] [facility] [address] [id number] [place] 4978 May, [facility] [place] [facility] [address] [id number] [place] [address]- 7077 May, [facility] [place] [facility] [address] [id number] [place] 7874 May, [facility] [place] [facility] [address] [id number] [place] [address]- 5257 May, [facility] [place] [facility] [address] [id number] [place] [address]- 4471 May, [facility] [place] [facility] [address] [id number] [place] [address]- 9346 May, [facility] [place] [facility] [address] [id number] [place] [address] Apr, [facility] [place] [facility] [address] [id number] [place] [address] Apr, [facility] [place] [facility] [address] [id number] [place] [address] Apr, [facility] [place] [facility] [address] [id number] [place] [address] Apr, [facility] [place] [facility] [address] [id number] [place] [address] Apr, [facility] [place] [facility] [address] [id number] [place] [address] Apr, [facility] [place] [facility] [address] [id number], [place] [address] Apr, [facility] [place] [facility] [address] [id number], [place] [address] Apr, [facility] [place] [facility] [address] [id number], [place] [address] Apr, [facility] [place] [facility] [address] [id number] [place] [address] Apr, [facility] [place] [facility] [address] [id number], [place] [address] Apr, [facility] [place] [facility] [address] [id number], [place] [address] Apr, [facility] [place] [facility] [address] [id number], [place] [address] 14 Mar, 2014 [facility] [place] [facility] [address] [id number] [place] [address] 14 Mar, 2014 [facility] [place] [facility] [address] [id number] [place] [address] Mar, [facility] [place] [facility] [address] [id number] [place] [address] Mar, [facility] [place] [facility] [address] [id number] [place] [address] 10 Feb, 2014 [facility] [place] [facility] [address] [id number] [place] [address] Feb, [facility] [place] [facility] [address] [id number] [place] [address] 05 Feb, 2014 [facility] [place] [facility] [address] [id number] [place] [address] Feb, [facility] [place] [facility] [address] [id number] [place] [address] Feb, [facility] [place] [facility] [address] [id number] [place] [address] Feb, [facility] [place] [facility] [address] [id number] [place] [address] Jan, [facility] [place] [facility] [address] [id number] [place] [address] Jan, [facility] [place] [facility] [address] [id number], [place] [address] Jan, [facility] [place] [facility] [address] [id number] [place] [address] Jan, [facility] [place] [facility] [address] [id number] [place] [address] Jan, [facility] [place] [facility] [address] [id number] [place] [address]- [address] Jan, [facility] [place] [facility] [address] [id number] [place] [address] Jan, [facility] [place] [facility] [address] [id number] [place] [address] Jan, [facility] [place] [facility] [address] [id number] [place] [address] Jan, [facility] [place] [facility] [address] [id number] [place] [address] Jan, [facility] [place] [facility] [address] [id number] [place] [address] Jan, [facility] [place] [facility] [address] [id number] [place] [address] Jan, [facility] [place] [facility] [address] [id number] [place] [address] Jan, [facility] [place] [facility] [address] [id number] [place] [address] 9776 Jan, [facility] [place] [facility] [address] [id number] [place] [address] 6008 Dec, [facility] [place] [facility] [address] [id number] [place] [address]- 9962 Dec, [facility] [place] [facility] [address] [id number] [place] [address] 7550 Dec, [facility] [place] [facility] [address] [id number] [place] [address] 4037 Dec, [facility] [place] [facility] [address] [id number] [place] [address] 3056 Nov, [facility] [place] [facility] [address] [id number] [place] [address]- 3967 Nov, [facility] [place] [facility] [address] [id number] [place] [address]- 5051 Nov, [facility] [place] [facility] [address] [id number] [place] [address]- 0229 Nov, [facility] [place] [facility] [address] [id number] [place] [address]- 5887 Nov, [facility] [place] [facility] [address] [id number] [place] [address] 8803 October, [facility] [place] [facility] [address] [id number] [place] [address] 0755 October, [facility] [place] [facility] [address] [id number] [place] [address]- 9828 October, [facility] [place] [facility] [address] [id number] [place] [address]- 3258 October, [facility] [place] [facility] [address] [id number] [place] [address]- 7384 October, [facility] [place] [facility] [address] [id number] [place] [address]- 6286 October, [facility] [place] [facility] [address] [id number] [place] [address]- 9828 October, [facility] [place] [facility] [address] [id number] [place] [address]- 7329 October, [facility] [place] [facility] [address] [id number] [place] [address]- 2583 October, [facility] [place] [facility] [address] [id number] [place] [address]- 0825 October, [facility] [place] [facility] [address] [id number] [place] [address]- 9873 October, [facility] [place] [facility] [address] [id number] [place] [address]- 1160 October, [facility] [place] [facility] [address] [id number] [place] [address]- 7019 October, [facility] [place] [facility] [address] [id number] [place] [address]- 8989 October, [facility] [place] [facility] [address] [id number] [place] [address]- 8332 17 Sep, 2013 [facility] [place] [facility] [address] [id number] [place] [address]- 9730 17 Sep, 2013 [facility] [place] [facility] [address] [id number] [place] [address]- 5152 Sep, [facility] [place] [facility] [address] [id number] [place] [address]- 0581 Sep, [facility] [place] [facility] [address] [id number] [place] [address]- 2649 Sep, [facility] [place] [facility] [address] [id number] [place] [address]- 4437 Sep, [facility] [place] [facility] [address] [id number] [place] [address]- 7827 Sep, [facility] [place] [facility] [address] [id number] [place] [address]- 3700 Sep, [facility] [place] [facility] [address] [id number] [place] [address]- 6840 Sep, [facility] [place] [facility] [address] [id number] [place] [address]- 1755 Sep, [facility] [place] [facility] [address] [id number] [place] [address]- 8782 Sep, [facility] [place] [facility] [address] [id number] [place] [address]- 7771 Sep, [facility] [place] [facility] [address] [id number] [place] [address]- 5464 Sep, [facility] [place] [facility] [address] [id number] [place] [address]- 1139 Sep, [facility] [place] [facility] [address] [id number] [place] [address]- 4361 Sep, [facility] [place] [facility] [address] [id number] [place] [address]- 3781 Aug, [facility] [place] [facility] [address] [id number] [place] [address]- 1890 Aug, [facility] [place] [facility] [address] [id number] [place] [address]- 9044 Aug, [facility] [place] [facility] [address] [id number] [place] [address]- 1721 Aug, [facility] [place] [facility] [address] [id number] [place] [address]- 8040 Jul, [facility] [place] [facility] [address] [id number] [place] [address]- 4086 Jul, [facility] [place] [facility] [address] [id number] [place] [address]- 4670 Jul, [facility] [place] [facility] [address] [id number] [place] [address]- 2153 Jul, [facility] [place] [facility] [address] [id number] [place] [address]- 4858 Jun, [facility] [place] [facility] [address] [id number] [place] [address]- 3813 Jun, [facility] [place] [facility] [address] [id number] [place] [address]- 1872 Jun, [facility] [place] [facility] [address] [id number] [place] [address]- 4658 Jun, [facility] [place] [facility] [address] [id number], [place] [address]- 4916 Jun, [facility] [place] [facility] [address] [id number] [place] [address]- 7952 Jun, [facility] [place] [facility] [address] [id number] [place] [address]- 5766 Jun, [facility] [place] [facility] [address] [id number] [place] [address]- 1498 Jun, [facility] [place] [facility] [address] [id number] [address] 3037 20 May, 2013 [facility] [address] [id number] [place] [address] 20 May, 2013 [facility] [address] [facility] [id number] [place] [address]- 2210 18 May, 2013 [facility] [address] [id number] [place] 8[address] 18 May, 2013 [facility] [address] [id number] [place] [address] 17 May, 2013 [facility] [address] [id number] [place] [id number] 17 May, 2013 [facility] [address] [id number] [place] [address]- 0580 17 May, 2013 [facility] [address] [id number] [place] [address]- 4896 17 May, 2013 [facility] [address] [id number] [place] [address]- 5756 16 May, 2013 [facility] [address] [id number] [place] [address]- 3325 16 May, 2013 [facility] [address] [id number] [place] [address]- 9919 14 May, 2013 [facility] [address] [id number] [place] [address]- 5216 14 May, 2013 [facility] [address] [id number] [place] [address]- 8604 13 May, 2013 [facility] [address] [id number] [place]11 13 May, 2013 [facility] [address] [facility] [id number] [place] [address]54 12 May, 2013 [facility] [address] [id number] [place] 7632 12 May, 2013 [facility] [place] [facility] [address] [id number] [place] [address]- 6976 May, [facility] [address] [id number] [place] [address]- 8657 May, [facility] [address] [id number] [place] [address]- 5636 Apr, [facility] [address] [id number] [place] [address]- 1506 Apr, [facility] [address] [id number] [place] [address]- 6545 Apr, [facility] [address] [id number] [place] [address]- 7168 Apr, [facility] [address] [id number] [place] [address]- 4792 Aug, [facility] [address] [id number] [place] [address]- 1671 Aug, [facility] [address] [id number] [place] [address]- 7721 Aug, [facility] [address] [id number] [place] [address]- 4458 Aug, [facility] [address] [id number] [place] [address]- 5379 Jul, [facility] [address] [id number] [place] [address]- 8647 Jun, [facility] [address] [id number] [place] [address]- 3932 Jun, [facility] [place] [facility] [address] [id number] [place] [address]- 2546 Jun, [facility] [place] [facility] [address] [id number] [place] [address]- 2546 Jun, [facility] [place] [facility] [address] [id number] [place] [address]- 3111 May, [facility] [place] [facility] [address] [id number] [place] [address]- 3016 May, [facility] [place] [facility] [address] [id number] [place] [address]- 8014 May, [facility] [place] [facility] [address] [id number] [place] 2895 May, [facility] [place] [facility] [address] [id number] [place] [address]- 5258 May, [facility] [place] [facility] [address] [id number] [place] [address]- 9658 May, [facility] [place] [facility] [address] [id number] [place] [address]- 3301 May, [facility] [place] [facility] [address] [facility] [id number] [place] [address]- 9295 Apr, [facility] [place] [facility] [address] [id number], [place] [address]- 3281 Apr, [facility] [place] [facility] [address] [id number], [place] [address]- 4142 Apr, [facility] [place] [facility] [address] [facility] [id number], [place] [address]- 3505 Apr, [facility] [place] [facility] [address] [id number], [place] [address]- 7628 Apr, [facility] [place] [facility] [address] [id number], [place] [address]- 0233 Apr, [facility] [place] [facility] [address] [id number], [place] [address]- 5221 Apr, [facility] [place] [facility] [address] [id number], [place] [address]- 3093 Mar, [facility] [place] [facility] [address] [facility] [id number], [place] [address]- 3654 Mar, [facility] [place] [facility] [address] [id number] [place] [address]- 0064 Mar, [facility] [place] [facility] [address] [id number] [place] [address]- 7555 Mar, 2011 [facility] [place] [facility] [address] [id number] [place]89 Mar, [facility] [place] [facility] [address] [id number] [place] [address]- 0161 Mar, [facility] [place] [facility] [address] [id number] [place] [address]- 9139 Mar, [facility] [place] [facility] [address] [id number] [place] [address]378 Mar, [facility] [place] [facility] [address] [id number] [place] [address]- 2486 Mar, [facility] [place] [facility] [address] [id number] [place] [address]- 1866 Mar, [facility] [place] [facility] [address] [id number] [place] [address]- 7438 Mar, [facility] [place] [facility] [address] [id number] [place] [address]- 0256 Mar, [facility] [place] [facility] [address] [id number] [place] [address]- 6738 Feb, [facility] [place] [facility] [address] [id number] [place] [address]- 5735 Jan, [facility] [place] [facility] [address] [id number] [place] [address]- 8693 Jan, [facility] [place] [facility] [address] [id number] [place] [address]- 1421 Jan, [facility] [place] [facility] [address] [id number] [place] [address]- 2593 Jan, [facility] [place] [facility] [address] [id number] [place] [address]- 8207 Jan, [facility] [place] [facility] [address] [id number] [place] [address]- 8863 Dec, [facility] [place] [facility] [address] [id number] [place] [address]- 6819 Dec, [facility] [place] [facility] [address] [id number] [place] [address]- 0283 Nov, [facility] [place] [facility] [address] [id number] [place] [address]- 8371 Nov, [facility] [place] [facility] [address] [id number] [place] [address]- 8460 Nov, [facility] [place] [facility] [address] [id number] [place] [address]- 0748 October, [facility] [place] [facility] [address] [id number] [place] [address]- 6522 October, [facility] [place] [facility] [address] [id number] [place] [address]- 0187 October, [facility] [address] [id number] [place] [address]- 9185 October, [facility] [place] [facility] [address] [id number] [place] [address]- 9991 October, [facility] [place] [facility] [address] [id number] [place] [address]- 2858 October, [facility] [place] [facility] [address] [id number] [place] [address]- 1972 October, [facility] [place] [facility] [address] [id number] [place] [address]- 1782 Sep, [facility] [place] [facility] [address] [id number] [place] [address]- 2902 Sep, [facility] [place] [facility] [address] [id number] [place] [address]- 9368 Sep, [facility] [place] [facility] [address] [id number] [place] [address]- 8176 25 Sep, 2011 [facility] [place] [facility] [address] [id number] [place] [address]- 1323 24 Sep, 2011 [facility] [place] [facility] [address] [id number] [place] [address]- 5553 19 Sep, 2011 [facility] [place] [facility] [address] [id number] [place] [address]- 3646 17 Sep, 2011 [facility] [place] [facility] [address] [id number] [place] [address]- 0715 16 Sep, 2011 [facility] [place] [facility] [address] [id number] [place] [address]- 2209 16 Sep, 2011 [facility] [place] [facility] [address] [id number] [place] [address]- 7923 14 Sep, 2011 [facility] [place] [facility] [address] [id number] [place] [address]- 4277 13 Sep, 2011 [facility] [place] [facility] [address] [id number] [place] [address]- 7928 10 Sep, 2011 [facility] [place] [facility] [address] [id number] [place] [address]- 3993 09 Sep, 2011 [facility] [place] [facility] [address] [id number] [place] [address]- 5291 27 Aug, 2011 [facility] [place] [facility] [address] [id number] [place] [address]- 7883 12 Aug, 2011 [facility] [place] [facility] [address] [id number] [place] [address]- 4036 08 Aug, 2011 [facility] [place] [facility] [address] [id number] [place] [address]- 4008 06 Aug, 2011 [facility] [place] [facility] [address] [id number] [place] [address]- 2550 28 Jul, 2011 [facility] [place] [facility] [address] [id number] [place] [address]- 3643 Jul, [facility] [place] [facility] [address] [id number] [place] [address]- 3038 16 Jul, 2011 [facility] [address] [id number] [place] [address]- 3496 15 Jul, 2011 [facility] [place] [facility] [address] [id number] [place] [address]- 1176 14 Jul, 2011 [facility] [place] [facility] [address] [id number] [place] [address]- 9196 10 Jul, 2011 [facility] [place] [facility] [address] [id number] [place] [address]- 3918 30 Jun, 2011 [facility] [place] [facility] [address] [id number] [place] [address]- 9007 05 Jun, 2011 [facility] [place] [facility] [address] [id number] [place] [address]- 2541 04 Jun, 2011 [facility] [place] [facility] [address] [id number] [place] [address]- 0248 Jun, [facility] [address] [id number] [place] [address]- 4571 Jun, [facility] [place] [facility] [address] [id number] [place] [address]- 0556 27 May, 2011 [facility] [address] [id number] [place] [address]- 8412 May, [facility] [place] [facility] [address] [id number] [place] [address]- 4416 14 May, 2011 [facility] [place] [facility] [address] [id number] [place] [address] 2548 14 May, 2011 [facility] [place] [facility] [address] [id number] [place] [address] 2546 12 May, 2011 [facility] [place] [facility] [address] [id number] [place] [address] 2546 07 May, 2011 [facility] [place] [facility] [address] [id number] [place] [address]- 0006 May, [facility] [place] [facility] [address] [id number] [place] [address]- 9493 Apr, [facility] [place] [facility] [address] [id number] [place] [address]- 1023 Apr, [facility] [place] [facility] [address] [id number] [place] [address]- 6689 Apr, [facility] [place] [facility] [address] [id number] [place] [address]- 2115 Apr, [facility] [place] [facility] [address] [id number] [place] [address]- 2159 Apr, [facility] [place] [facility] [address] [id number] [place] [address]- 4022 Apr, [facility] [place] [facility] [address] [id number] [place] [address]- 7866 Mar, [facility] [place] [facility] [address] [id number], [place] [address]- 9145 Mar, [facility] [place] [facility] [address] [id number] [place] [address]- 1434 Mar, [facility] [place] [facility] [address] [id number] [place] [address]- 2734 Mar, [facility] [place] [facility] [address] [id number], [place] [address]- 7967 Jan, [facility] [place] [facility] [address] [id number], [place] [address]- 1809 Dec, [facility] [place] [facility] [address] [id number] [place] [address]- 3623 Dec, [facility] [place] [facility] [address] [id number], [place] [address]- 2150 October, [facility] [place] [facility] [address] [id number] [place] [address]- 8706 Sep, [facility] [place] [facility] [address] [id number] [place] [address]- 0494 14 Sep, 2010 [facility] [address] [id number] [place] [address]- 5176 17 Jul, 2010 [facility] [place] [facility] [address] [id number] [place] [address] 16 Jul, 2010 [facility] [address] [id number] [place] [address] 31 May, 2010 [facility] [place] [facility] [address] [id number] [place] [address]48 27 May, 2010 [facility] [address] [id number] [place] [address], [place] [address] 08 May, 2010 [facility] [place] [facility] [address] [id number] [place] [address] 06 May, 2010 [facility] [place] [facility] [address] [id number] [place] [address] Apr, [facility] [address] [id number] [place] [address] Apr, [facility] [place] [facility] [address] [facility] [id number] [place] [address] Apr, [facility] [address] [facility] [id number] [place] [address] 18 Apr, 2010 [facility] [place] [facility] [address] [id number] [place] [address] Apr, [facility] [place] [facility] [address] [id number] [place] [address] 21 Mar, 2010 [facility] [place] [facility] [address] [id number] [place] [address] 14 Mar, 2010 [facility] [place] [facility] [address] [id number] [place] [address] 13 Mar, 2010 [facility] [place] [facility] [address] [id number] [place] [address] Mar, [facility] [id number] [address] Jan, [facility] [id number], [place] [address] Dec, [facility] [address], [place] [address] Sep, [facility] [address], [place] [address] May, [facility] [address], [place] [address] May, [facility] [address], [place] [address] May, [facility] [id number], [place] [address] Apr, [facility] [address], [place] [address] Apr, [facility] [address], [place] [address] Apr, [facility] [address], [place] [address] Apr, [facility] [id number], [place] [address] Apr, [facility] [id number], [place] [address] Mar, [facility] [id number], [place] [address] Mar, [facility] [id number] [address] Jul, IMMUNIZATIONS No Known Immunizations SOCIAL HISTORY Never Assessed REASON FOR VISIT After Hours Clinical Advice PLAN OF CARE VITAL SIGNS MEDICATIONS Unknown [...] Surgical History nephrectomy 03/2017 Hospitalization History [facility]ulitis[facility] 12/20/15 Hospitalization History [facility]- Abd pain 03/07/2017 Hospitalization History [facility]- Abd pain 03/14/2017 Hospitalization History [facility]- No bowel movement, rash 04/13/2017 Hospitalization History [facility]- Abd pain r/t kidney surgery on 04/17/2017 Hospitalization History [facility]- Abd pain r/t kidney surgery on 04/18/2017 Hospitalization History [facility]- Lower abd pain 04/30/2017 Hospitalization History [facility]- Cannot urinate 05/30/2017 Hospitalization History [facility]- Pancreatitis Sx 06/29/2017 Hospitalization History [facility]- Stomach pain 07/22/2017 Hospitalization History [facility]- Left side pain 08/12/2017 Hospitalization History [facility]- Incision site infection 08/30/2017 Hospitalization History [facility]- Post Op Seroma/Hematoma Left Abdomen. Discharged 09/04/17- Dr Daniel 09/02/2017 Hospitalization History [facility]- Right shoulder and back pain 2017 Hospitalization History [facility]- Shoulder/Back pain 11/11/2017 Hospitalization History [facility]- Right shoulder blade pain 12/04/2017 Hospitalization History [facility]- C-Diff 12/13/2017 Hospitalization History C diff et MRSA 12/27/2017
[2018-02-13] MEDS ORDERED: CLINDAMYCIN 600 MG/50 ML IVPB 50 ML IV ONE (11:30)
[2018-02-13] MEDS ORDERED: LACTATED RINGERS 1,000 ML IV PRN (11:39)
[2018-02-13] MEDS ORDERED: FAMOTIDINE 20MG/2ML IV (PEPCID) IV ONE (11:45)
[2018-02-13] MEDS ORDERED: ONDANSETRON 4 MG/2 ML (SDV) Z0FRAN IV ONE (11:45)
[2018-02-13] MEDS ORDERED: SCOPOLAMINE 1.5 MG (TRANSDERM-SCOP) PATCH TOP ONE (11:45)
[2018-02-13 11:57] VITALS: BP 119/58
--- NOTE | 2018-02-13 12:25 | Progress Note-Pre Operative ---
Pre-Operative Progress Note H&P Reviewed The H&P was reviewed, patient examined and no changes noted. Time Seen by Provider: 12:21 Date H&P Reviewed: Feb 13, 2018 Time H&P Reviewed: 12:23 Pre-Operative Diagnosis: LLQ pain/flank pain, ??inflammatory mass LINDSEY MARROQUIN DO Feb 13, 2018 12:25
[2018-02-13] MEDS ORDERED: LIDOCAINE/EPI 1%-1:200,000 (XYLOCAINE) 10 ML VIAL ONE (12:38)
[2018-02-13] MEDS ORDERED: DEXAMETHASONE 10 MG/ML (DECADRON) 1 ML VIAL ONE (12:40)
[2018-02-13] MEDS ORDERED: ONDANSETRON 4 MG/2 ML (SDV) Z0FRAN ONE (12:40)
[2018-02-13] MEDS ORDERED: proPOfol 200 MG/20 ML (DIPRIVAN) VIAL IV ONE (12:40)
[2018-02-13] MEDS ORDERED: MIDAZOLAM 2 MG/2 ML (VERSED) VIAL ONE (12:41)
[2018-02-13] MEDS ORDERED: PROPOFOL INJECTION 50 ML IV ONE (12:41)
[2018-02-13] MEDS ORDERED: LIDOCAINE PF 2% 5 ML (XYLOCAINE) VIAL ONE (12:41)
[2018-02-13] MEDS ORDERED: fentaNYL INJECTION 100 MCG/2 ML AMP ONE (12:41)
--- NOTE | 2018-02-13 13:34 | Progress Note-Post Operative ---
Post-Operative Progess Note Surgeon (s)/Residential Aide (s) Surgeon LINDSEY MARROQUIN DO Residential Aide: Laura Pre-Operative Diagnosis LLQ pain/flank pain, ??inflammatory mass Post-Operative Diagnosis Same pending path Procedure & Operative Findings Date of Procedure 02/13/18 Procedure Performed/Findings Excision left flank mass with 2 layer closure Anesthesia Type LMA Estimated Blood Loss Estimated blood loss (mL): scant Specimens/Packing Specimens Removed 1. Old Scar 2. Inflammatory tissue LINDSEY MARROQUIN DO Feb 13, 2018 13:34
[2018-02-13] MEDS ORDERED: HYDR-3820 PO (13:35)
--- NOTE | 2018-02-13 13:37 | Discharge Inst-Surgical ---
Discharge Inst-Surgical Depart Medication/Instructions New, Converted or Re-Newed RX: RX Given to Pt/Family Patient Instructions Follow up Appt: Make appointment for 1 week; [phone]. Instructions: No lifting greater than 10 pounds. No strenuous activity. May shower in 24 hours, no tub bath or soaking. Use incentive spirometer at home as directed. No Smoking Skin/Wound Care: May remove bandages in am. You need to leave the bing in place; will be removed in 10-14 days. Symptoms to Report: Appetite Changes, Extremity Discoloration, Numbness/Tingling, Swelling Increased , Bleeding Excessive, Eyesight Changes, Pain Increased, Urine Color Change, Constipation(Persistent), Fever over 101 degree F, Pain/Pressure in chest, Urinating Difficulty, Cough Up/Vomit Blood, Heart Beat Irreg/Pounding, Pain/ Pressure in jaw, Vaginal Bleeding Increase, Cramps in feet or legs, Lightheadedness, Pain/Pressure in shoulder, Diarrhea(Persistent), Memory Changes Suddenly, Questions/Concerns, Weight gain consecutive days, Dizziness/ Fainting, Nausea/Vomiting, Shortness of Breath, Weight gain over 2 pounds. If eyes or skin turn yellow notify physician. If questions or concerns contact your physician Or seek help at emergency department. Activity Activity as Tolerated: Yes Activity Instructions: Avoid Stress to Incision Driving Instructions: No Driving/Refer to Dr. Berger Discharge Diet: No Restrictions Diet After 24 Hours: Clear Liquid if Nauseous If Any Problems/Questions/Issu: Contact Your Physician, Go to Emergency Room Skin/Wound Care Infection Signs and Symptoms: Increased Redness, Foul Odor of Wound, Increased Drainage, Skin Itchy or Has a Rash, Increased Swelling, Temperature Above 101 F Wound Care Comment: MICHAEL Bulb drain teaching Bathing Instructions: Shower Operative Area Clean and Dry: Keep Incision Clean/Dry Stitches/[place] Dis: Care of [place] Ice Pack: Ice On and Off Site (as needed for pain) LINDSEY MARROQUIN DO Feb 13, 2018 13:37
[2018-02-13] MEDS ORDERED: ONDANSETRON 4 MG/2 ML (SDV) Z0FRAN IVP PRN (13:45)
[2018-02-13] MEDS ORDERED: morphine INJ 10 MG/ML 1ML (SYR OR VIAL) IVP ONE (13:45)
[2018-02-13] MEDS ORDERED: morphine INJ 10 MG/ML 1ML (SYR OR VIAL) ONE (14:03)
[2018-02-13 14:40] VITALS: BP 103/57
[2018-02-13 15:10] VITALS: BP 101/59
[2018-02-13 15:40] VITALS: BP 101/59
[2018-02-13 16:00] VITALS: BP 101/59
--- NOTE | 2018-02-13 19:51 | OPERATIVE REPORT ---
DATE OF SERVICE: 02/13/2018 PREOPERATIVE DIAGNOSES: 1. Left lower quadrant pain. 2. Left lower quadrant mass. POSTOPERATIVE DIAGNOSES. 1. Left lower quadrant pain. 2. Left lower quadrant mass. 3. Pending pathology. PROCEDURES: 1. Excision of left lower quadrant mass down to the fascia, appx 8.5cm elliptical incision. 2. A two-layer closure and placement of a drain. SURGEON: Deondre Roman DO. BRICK KILN BURNER: Glenn Sanchez DO. ANESTHESIA: LMA. SPECIMENS: 1. Portion of skin and the old scar. 2. Inflammatory mass down to the fascia; appx 7.5 x 4,5 x 2.5cm mass BLOOD LOSS: Scant. FLUIDS: Per anesthesia. POSTOPERATIVE CONDITION: Stable. INDICATION FOR PROCEDURE: The patient is a 32-year-old female who has chronic left lower quadrant, almost flank pain shooting up into her back and down into her leg. She had this at the site of a nephrectomy as well as then a hernia repair with history of multiple seromas in this area. I have tried everything else for the pain. The patient wanted to have this area looked up to make sure there is no problems and then get this lump and the mass removed. We did go over the fact that this may not change her pain at all. FINDINGS: The patient had some inflammatory mass, some old seroma fluid, but very minimal. No hernia seen. PROCEDURE NOTE: After informed consent was obtained, the patient was brought to the operating room, placed on the table in supine position. She was sterilely prepped and draped in normal fashion. Local lidocaine was infiltrated around the old scar. I then made an elliptical incision to remove this carried down through the skin into the subcutaneous tissue with #15 blade. Then continued down through subcutaneous tissue with Bovie electrocautery, removed and passed off the table. Encountered what appeared to be some inflammatory tissue and this is felt like this was the mass carefully started taking this out with all the way down to the fascia and right on top of the fascia. Could see sutures and almost feel the old mesh, also saw a little bit of seroma fluid. No infectious signs seen. There was no purulence. No necrotic tissue, resected some of this inflammatory tissue right off the fascia, passed this off the table. Copiously irrigated with normal saline. Hemostasis obtained using Bovie electrocautery. Had the anesthesiologist to do a couple Valsalva maneuver to make sure there was no hernia then there was no hernia noted. At this point, then made a small stab incision in the left lower quadrant, brought a hemostat through the stab incision into the open cavity and then placed a 15-Bulgarian Nakul drain brought out through this opening and sutured in place with 2-0 nylon and then curled into this space and then above this closed the tissue in 2 layers, closing the deep subcutaneous tissue with a 2-0 Vicryl, 4 interrupted sutures and closed the skin with bing. Area was cleaned and dried, dressing placed, and patient then transferred to recovery room in stable condition. Sponge and needle count correct at the end of the case. Dr. Sanchez assisted in this case helping to close the incision as well as identify anatomy, holding the anatomy out of the way. Job ID: [id number] DocumentID: [id number] Dictated Date: 02/13/2018 15:30:16 Manager Psychology Date: 02/13/2018 19:50:09 Dictated By: DO PASCALE CARTY
== END 2018-02-13 16:00 | disposition home or self-care (01) ==
LOC: SDC 10:48
PROVIDERS: ATTEND Surgery
DX: L90.5 Scar conditions and fibrosis of skin (principal); J45.909 Unspecified asthma, uncomplicated; E66.01 Morbid (severe) obesity due to excess calories; Z68.42 Body mass index [BMI] 45.0-49.9, adult
CPT/HCPCS: 87081; 88304; 88305

== ENCOUNTER 2018-02-24 13:02 | Emergency (ER) | payer MEDICARE, MEDICAID ==
[~2018-02-24] VITALS: Ht 157.5 cm; Wt 118.0 kg
[~2018-02-24 13:02] MED LIST changes: +HYDR-3820 PO
[2018-02-24] MEDS ORDERED: NS IV 1000 ML 1,000 ML IV SCH (13:30)
[2018-02-24] MEDS ORDERED: morphine INJ 10 MG/ML 1ML (SYR OR VIAL) IVP ONE ×3 (13:30→16:45)
[2018-02-24 13:44] LABS: ALANINE AMINOTRANSFERASE 20 U/L (0-55); ALBUMIN 3.9 GM/DL (3.2-4.5); ALKALINE PHOSPHATASE 61 U/L (40-136); AMYLASE 45 U/L (25-125); BASOPHILS % (AUTO) 0 % (0-10); BILIRUBIN,TOTAL 0.3 MG/DL (0.1-1.0); BUN/CREATININE RATIO 9; CALCIUM 9.2 MG/DL (8.5-10.1); CARBON DIOXIDE 27 MMOL/L (21-32); CHLORIDE 105 MMOL/L (98-107); CREATININE SERUM 0.95 MG/DL (0.60-1.30); EOSINOPHILS # (AUTO) 0.5 10^3/uL (0.0-0.3); EOSINOPHILS % (AUTO) 3 % (0-10); GFR ESTIMATED > 60; GLUCOSE 123 MG/DL (70-105); HEMATOCRIT 37 % (35-52); HEMOGLOBIN 12.2 G/DL (11.5-16.0); LIPASE 32 U/L (8-78); LYMPHOCYTES # (AUTO) 2.3 X 10^3 (1.0-4.0); LYMPHOCYTES % (AUTO) 16 % (12-44); MEAN CORPUSCULAR HEMOGLOBIN 28 PG (25-34); MEAN CORPUSCULAR HGB CONC 33 G/DL (32-36); MEAN CORPUSCULAR VOLUME 85 FL (80-99); MEAN PLATELET VOLUME 9.3 FL (7.4-10.4); MONOCYTES # (AUTO) 0.5 X 10^3 (0.0-1.0); MONOCYTES % (AUTO) 3 % (0-12); NEUTROPHILS # (AUTO) 11.2 X 10^3 (1.8-7.8); NEUTROPHILS % (AUTO) 77 % (42-75); PLATELET COUNT 305 10^3/uL (130-400); POTASSIUM 3.8 MMOL/L (3.6-5.0); RED BLOOD COUNT 4.39 10^6/uL (4.35-5.85); RED CELL DISTRIBUTION WIDTH 13.7 % (10.0-14.5); SODIUM 140 MMOL/L (135-145); TOTAL PROTEIN 7.3 GM/DL (6.4-8.2); WHITE BLOOD COUNT 14.5 10^3/uL (4.3-11.0)
[2018-02-24] MEDS ORDERED: PROMETHAZINE INJ 25 MG/ML (PHENERGAN) AMP IVP ONE (14:00)
[2018-02-24] MEDS ORDERED: ONDANSETRON 4 MG/2 ML (SDV) Z0FRAN IVP ONE (14:00)
[2018-02-24 14:10] LABS: EOSINOPHILS % (MANUAL) 3 %; LYMPHOCYTES % (MANUAL) 17 %; MONOCYTES % (MANUAL) 3 %; NEUTROPHILS % (MANUAL) 77 %; RBC MORPH NORMAL
--- OUTSIDE RECORDS SUMMARY | 2018-02-24 14:11 | XMS REPORT | Encounter Summary ---
Author Author [facility] Organization [facility] Address Unknown Phone Unavailable Care Team Providers Care Felled Seam Operator Name Role Phone Michael Sutton MD Unavailable Unavailable Mary Whittington MD PCP Jessica Valera Unavailable Maggie Puente Unavailable Unavailable Robert-Mary Moore APRN Unavailable Bam Ritter MD Unavailable Radha Bo LPN Unavailable Unavailable Jose Sanchez MD Unavailable Encounter Details Date Type Department Care Team Description 01/31/2018 Procedure Pass Gastrointenstinal Endoscopy [address] [place] [address] Social History Tobacco Use Types [...]
--- OUTSIDE RECORDS SUMMARY | 2018-02-24 14:11 | XMS REPORT | Encounter Summary ---
Author Author [facility] Organization [facility] Address Unknown Phone Unavailable Care Team Providers Care Molecular Physicist Name Role Phone Michael Sutton MD Unavailable Unavailable Mary Whittington MD PCP Jessica Valera Unavailable Maggie Puente Unavailable Unavailable Mary Telles APRN Unavailable Bam Ritter MD Unavailable Radha Bo LPN Unavailable Unavailable Jose Sanchez MD Unavailable Encounter Details Date Type Department Care Team Description 02/04/2018 Procedure Pass [facility] [address] [place] [address] Social History Tobacco Use Types Packs/Day Years [...]
--- OUTSIDE RECORDS SUMMARY | 2018-02-24 14:11 | XMS REPORT | Encounter Summary ---
Author Author [facility] Organization [facility] Address Unknown Phone Unavailable Care Team Providers Care Assistant Manager Bilingual Name Role Phone Michael Sutton MD Unavailable Unavailable Mary Whittington MD PCP Utech, Jessica FRONT WINDOW CASHIER Unavailable Maggie Puente Unavailable Unavailable Mary Telles STRAP SEWER Unavailable Bam Ritter MD Unavailable Radha Bo BLOCK HACKER Unavailable Unavailable Jose Sanchez MD Unavailable Reason for Referral * Radiology Services (Routine) Status Reason Specialty Diagnoses / Referred By Referred To Procedures Contact Contact No Auth Needed Radiology Diagnoses Utech, Jessica, Bhb Mri Chronic FRONT WINDOW CASHIER [address] pancreatitis, [address] [place], [place] pancreatitis [place] [address] [id number] type ([facility]) [place], [place] Phone: P [phone] rocedures Phone: MRI MRCP [phone] * Radiology Services (Routine) Status Reason Specialty Diagnoses / Referred By Referred To Procedures Contact Contact No Auth Needed Radiology Diagnoses Utech, Jessica, Bhb Mri Chronic FRONT WINDOW CASHIER [address] pancreatitis, [address] [place], [place] pancreatitis [place] [address] [address] type ([facility]) [place], [place] Phone: P [phone] rocedures Phone: MRI MRCP [phone] Reason for Visit * Radiology Services (Routine) Status Reason Specialty Diagnoses / Referred By Referred To Procedures Contact Contact No Auth Needed Radiology Diagnoses Utech, Jessica, Bhb Mri Chronic FRONT WINDOW CASHIER [address] pancreatitis, [address] [place], [place] pancreatitis [place] [address] [address] type (HCC) [place], [place] Phone: P [phone] rocedures Phone: MRI MRCP [phone] Encounter Details Date Type Department Care Team Description 02/19/2018 [facility] Utech, Jessica, FRONT WINDOW CASHIER Arrived Encounter Hospital Radiology [address] [place] [address] [place] [address] [phone] Social History Tobacco Use Types Packs/Day Years [...] to three times a day as needed. [id number] Take 3 tablets by mouth 300 tablet [...] mg by mouth at tablet bedtime daily. cyanocobalamin (VITAMIN INJECT 1ML INTO THE 1 mL 3 10/02/20172017 B-12, RUBRAMIN) 1,000 MUSCLE EVERY 30 DAYS mcg/mL injectionIndications: Medication monitoring encounter as of this encounter Plan of Treatment Date Type Specialty Care Team Description 12/09/2017 Procedure Pass Oncology 12/09/2017 Procedure Pass Oncology as of this encounter Results * MRI MRCP (02/19/2018 7:44 AM) Impressions Performed At 1. Pancreas divisum. No significant pancreatic ductal dilatation. [facility] 2. Previous cholecystectomy. No significant biliary ductal dilatation or choledocholithiasis. 3. Previous left nephrectomy. Unchanged small linear soft tissue thickening in the left renal fossa most compatible scarring. 4. Hepatosplenomegaly with diffuse hepatic steatosis. Finalized by QUINTEN DELGADO M.D. on 02/19/2018 8:32 AM. Dictated by QUINTEN DELGADO M.D. on 02/19/2018 8:15 AM. Narrative Performed At MRCP [facility] Clinical Indication:Female, 32 years old. Chronic pancreatitis, unspecified pancreatitis type. Suspected pancreas divisum on EUS. Technique: Multisequence and multiplanar MR imaging was obtained through the abdomen without IV contrast material. IV Contrast: None. Bowel contrast: None Magnet:3 Brandy Siemens Comparison: CT chest and abdomen on 12/09/2017. FINDINGS: Limited evaluation without the use of IV contrast which includes the viscera and vasculature. Repetitive respiratory motion artifact degrades several sequences. Lower Thorax: Unremarkable. Liver and Biliary system: Liver is enlarged measuring up to 24.5 cm craniocaudal. Diffuse hepatic steatosis. No noncontrast evidence of obvious hepatic mass. Previous cholecystectomy. Small, nondilated cystic duct remnant. No significant biliary ductal dilatation. No choledocholithiasis. Spleen: Mild splenomegaly measuring up to 13.5 cm craniocaudal. Several small splenules adjacent to the anterior margin of the spleen. Adrenal Glands and Kidneys: Adrenal glands and solitary right kidney unremarkable. Left kidney absent. Unchanged linear soft tissue thickening in the left renal fossa (series 5 image 22), not significantly changed across prior exams dating back to 04/30/2017 most compatible with scarring. No new or enlarging left renal fossa mass. Pancreas and Retroperitoneum: Pancreas divisum. Pancreas otherwise unremarkable. No significant pancreatic ductal dilatation or noncontrast evidence of pancreatic mass. No significant retroperitoneal lymphadenopathy. Aorta and Major Vessels: Normal caliber abdominal aorta. Bowel, Mesentery and Peritoneal space: Visualized upper abdominal large and small bowel loops normal in caliber. No mesenteric lymphadenopathy or ascites. Abdominal wall and Osseous Structures: No destructive osseous lesion. Procedure Note Interface, Radiant Results - 02/19/2018 8:35 AM CDT MRCP Clinical Indication: Female, 32 years old. Chronic pancreatitis, unspecified pancreatitis type. Suspected pancreas divisum on EUS. Technique: Multisequence and multiplanar MR imaging was obtained through the abdomen without IV contrast material. IV Contrast: None. Bowel contrast: None Magnet:3 Brandy Siemens Comparison: CT chest and abdomen on 12/09/2017. FINDINGS: Limited evaluation without the use of IV contrast which includes the viscera and vasculature. Repetitive respiratory motion artifact degrades several sequences. Lower Thorax: Unremarkable. Liver and Biliary system: Liver is enlarged measuring up to 24.5 cm craniocaudal. Diffuse hepatic steatosis. No noncontrast evidence of obvious hepatic mass. Previous cholecystectomy. Small, nondilated cystic duct remnant. No significant biliary ductal dilatation. No choledocholithiasis. Spleen: Mild splenomegaly measuring up to 13.5 cm craniocaudal. Several small splenules adjacent to the anterior margin of the spleen. Adrenal Glands and Kidneys: Adrenal glands and solitary right kidney unremarkable. Left kidney absent. Unchanged linear soft tissue thickening in the left renal fossa (series 5 image 22), not significantly changed across prior exams dating back to 04/30/2017 most compatible with scarring. No new or enlarging left renal fossa mass. Pancreas and Retroperitoneum: Pancreas divisum. Pancreas otherwise unremarkable. No significant pancreatic ductal dilatation or noncontrast evidence of pancreatic mass. No significant retroperitoneal lymphadenopathy. Aorta and Major Vessels: Normal caliber abdominal aorta. Bowel, Mesentery and Peritoneal space: Visualized upper abdominal large and small bowel loops normal in caliber. No mesenteric lymphadenopathy or ascites. Abdominal wall and Osseous Structures: No destructive osseous lesion. IMPRESSION 1. Pancreas divisum. No significant pancreatic ductal dilatation. 2. Previous cholecystectomy. No significant biliary ductal dilatation or choledocholithiasis. 3. Previous left nephrectomy. Unchanged small linear soft tissue thickening in the left renal fossa most compatible scarring. 4. Hepatosplenomegaly with diffuse hepatic steatosis. Finalized by QUINTEN DELGADO M.D. on 02/19/2018 8:32 AM. Dictated by QUINTEN DELGADO M.D. on 02/19/2018 8:15 AM. Performing Organization Address City/State/Zipcode Phone Number [facility] in this encounter Visit Diagnoses Diagnosis Chronic pancreatitis, unspecified pancreatitis type (HCC)
--- OUTSIDE RECORDS SUMMARY | 2018-02-24 14:11 | XMS REPORT | Encounter Summary ---
Author Author [facility] Organization [facility] Address Unknown Phone Unavailable Care Team Providers Care Student Accounts Coordinator Name Role Phone Michael Sutton MD Unavailable Unavailable Mary Whittington MD PCP Jessica Valera Unavailable Maggie Puente Unavailable Unavailable Mary Telles APRN Unavailable Bam Ritter MD Unavailable Radha Bo LPN Unavailable Unavailable Jose Sanchez MD Unavailable Reason for Visit * Reason Comments Medication Refill Encounter Details Date Type Department Care Team Description 02/20/2018 Refill [facility] Randy Nunez MD Medication monitoring Physicians - Internal [address] [facility] encounter Medicine [place] [address] [place] [address] [address] [phone] [place] [address] [phone] Social History Tobacco Use Types Packs/Day Years [...]
--- OUTSIDE RECORDS SUMMARY | 2018-02-24 14:11 | XMS REPORT | Clinical Summary ---
Author Author [facility] Organization [facility] Address Unknown Phone Unavailable Care Team Providers Care Plc Controls Engineer Name Role Phone Michael Sutton MD [...] in the Health Information Management department at [phone] for further assistance in locating additional records.[facility] Allergies Active Allergy Reactions Severity Noted [...] tongue to disolve. Chronic nausea, Chronic vomiting dyxrxn-[id number] Take 3 tablets by mouth 300 tablet 5 12/12/19 Active (VIOKACE) 20,880-78,300- three times daily with 18 78,300 unit tab meals. Take 2 with snacks. hydrocortisone 2.5% Apply externally and 30 g 0 12/14/19 Active (PROCTO-MED HC) 2.5 % internally to area(s) 18 rectal cream twice to three times a day as needed. cyanocobalamin (VITAMIN INJECT 1 ML. 1 mL 3 02/21/20 Active B-12, RUBRAMIN) 1,000 INTRAMUSCULARLY EVERY 30 18 mcg/mL DAYS injectionIndications: Medication monitoring encounter cyanocobalamin (VITAMIN INJECT 1ML INTO THE 1 mL 3 10/03/19 Discontin B-12, RUBRAMIN) 1,000 MUSCLE EVERY 30 DAYS 18 18 ued mcg/mL injectionIndications: Medication monitoring encounter Active Problems Problem Noted Date Other chronic pancreatitis (HCC) 01/14/2018 Overview: Added automatically from request for surgery [id number] Intractable vomiting with nausea 01/14/2018 Overview: Added automatically from request for surgery [id number] Left renal mass 04/10/2017 Renal mass 03/21/2017 Overview: Added automatically from request for surgery [id number] 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 06/24/2013 Overview: S/P HOLLAND, BSO 11/27 Depression 06/24/2013 S/P cholecystectomy 06/24/2013 Overview: 2007 S/P appendectomy 06/24/2013 Overview: November 2012 Pancreatitis 10/23/2011 Encounters Date Type Specialty Care Team Description 02/20/2018 Refill Gastroenterology Randy Nunez MD Medication monitoring encounter 02/19/2018 Hospital Radiology Jessica Valera ARNP Arrived Encounter 02/04/2018 Procedure Pass Radiology 02/04/2018 Telephone Gastroenterology Jessica Valera ARNP Results; Follow-up Phone Call 01/31/2018 [facility] Hal Sparks MD Other chronic Encounter pancreatitis (HCC) 01/31/2018 Anesthesia WatersCatherine white, FLIGHT TEST SHOP MECHANIC Event 01/31/2018 Procedure Pass 01/31/2018 Surgery Hal [...] Medication Update 12/17/2017 Telephone Gastroenterology Jessica Valera LAMP TESTER AND INSPECTOR Medication Follow-up 12/17/2017 Orders Only Gastroenterology Utech, Jessica, LAMP TESTER AND INSPECTOR Diarrhea, unspecified type 12/16/2017 Orders Only Gastroenterology Utech, Jessica, LAMP TESTER AND INSPECTOR Diarrhea, unspecified type 12/13/2017 Telephone Gastroenterology Randy Nunez MD Other 12/13/2017 Telephone Gastroenterology Utech Jessica LAMP TESTER AND INSPECTOR C Diff ( Positive C Diff) 12/13/2017 Telephone Gastroenterology Utech Jessica LAMP TESTER AND INSPECTOR Prior Authorization (Viokace ) 12/11/2017 Telephone Gastroenterology Utech Jessica LAMP TESTER AND INSPECTOR Other (plan of care) 12/10/2017 Telephone Gastroenterology Moraima Jessica LAMP TESTER AND INSPECTOR Prior Authorization (Hydrocortisone rectal suppository 25mg ) 12/10/2017 Ancillary Radiology Outpatient, Radiologist Diagnosis unknown Orders 12/10/2017 Ancillary Radiology Outpatient, Radiologist Orders 12/10/2017 Ancillary Radiology Outpatient, Radiologist Diagnosis unknown Orders 12/09/2017 Office Visit Gastroenterology Utech Jessica LAMP TESTER AND INSPECTOR Diarrhea, unspecified type (Primary Dx); Epigastric pain; [...] Call - spoke with pt., 01/28/18 @ 0865 ()1st call. Pt scheduled for 01/31/18 1:00. 01/27/18 0912 () Waiting for Rosanne to review and advise 01/14/18 1346 () from Last 3 Months Results * MRI MRCP (02/19/2018 7:44 AM) [...] City/State/Zipcode Phone Number [facility] * TELEMETRY STRIPS-SCAN (02/03/2018 12:38 PM) Narrative Performed At Ordered by an unspecified provider. * ENDOSCOPIC ULTRASOUND REPORT (01/31/2018 12:46 PM) Provation Report Patient Name: Regulo WILKS OTHER RESULTS Procedure Date: 01/31/2018 12:46 PM CSN: [id number] Date of : 1985 Gender: Female Attending Physician: Hal Sparks MD Procedure: Upper EUS Indications: Acute recurrent pancreatitis Providers: Hal Sparks MD (Doctor), Jake Crocker MD (Fellow), Delilah Jarquin RN (Nurse), Jose Mcclure (Cigarette Making Machine Operator) Referring Physician: Randy Nunez MD, Jessica Valera [...] 45 seconds Procedure Code(s): --- Professional --- 60248, Esophagogastroduodenoscopy, flexible, transoral; with endoscopic ultrasound examination limited to the esophagus, stomach or duodenum, and adjacent structures CPT copyright 2016 [employer]. All rights reserved. The codes documented in this report are preliminary and upon overhauler review may be revised to meet current [...] Organization Address City/State/Zipcode Phone Number MAIN [facility] [address] [place] [address] * GIARDIA SCREEN,FECAL (12/11/2017) Narrative Performed At Performing Organization Address City/[facility]/Zipcode Phone Number MAIN LAB [address] [place] [address] * CULTURE-FECES W/SENSITIVITY (12/11/2017) Specimen Stool Narrative Performed At Performing Organization Address [facility]/Zipcode Phone Number MA[facility] [address] [place] [address] * CRYPTOSPORIDUM,FECAL (12/11/2017) Specimen Stool Narrative Performed At Performing Organization Address City/[facility] Phone Number [facility] [address] [place] [address] * BASIC METABOLIC PANEL (12/09/2017 11:38 AM) Sodium 134 (L) 137 - 147 MMOL/L [facility] Potassium 3.6 3.5 - 5.1 MMOL/L [facility] Chloride 101 98 - 110 MMOL/L [facility] CO2 26 21 - 30 MMOL/L [facility] Anion Gap 7 3 - 12 [facility] Glucose 152 (H) 70 - 100 MG/DL [facility] Blood Urea Nitrogen 11 7 - 25 MG/DL [facility] Creatinine 0.93 0.4 - 1.00 MG/DL [facility] Calcium 8.7 8.5 - 10.6 MG/DL [facility] eGFR Non >60 >60 mL/min [facility] Comment: The eGFR is not validated for use in drug dosing adjustments.Continue to use estimated creatinine clearance per dosing reference text.Please contact the Clinical Pharmacist for questions. eGFR >60 >60 mL/min [facility] Comment: The eGFR is not validated for use in drug dosing adjustments.Continue to use estimated creatinine clearance per dosing reference text.Please contact the Clinical Pharmacist for questions. Specimen Blood Performing Organization Address City/[facility]/Zipcode Phone Number [facility] [address] [place] [address] * POC CREATININE, RAD (12/09/2017 9:55 AM) Creatinine, POC 0.8 0.4 - 1.00 MG/DL [facility] Performing Organization Address City/[facility]/Zipcode Phone Number MAIN LAB [address] [place] [address] * CT ABDOMEN W CONTRAST (12/09/2017 9:55 [...]
--- OUTSIDE RECORDS SUMMARY | 2018-02-24 14:11 | XMS REPORT | Encounter Summary ---
Author Author [facility] Organization [facility] Address Unknown Phone Unavailable Care Team Providers Care Sole Tier Name Role Phone Michael Sutton MD Unavailable Unavailable Mary Whittington MD PCP Jessica Valera DIRECTOR PRODUCT DEVELOPMENT Unavailable Maggie Puente Unavailable Unavailable Mary Telles BRAILLE TYPIST Unavailable Bam Ritter MD Unavailable Radha Bo BELLSTAND ATTENDANT Unavailable Unavailable Jose Sanchez MD Unavailable Reason for Referral * Radiology Services (Routine) Status Reason Specialty Diagnoses / Referred By Referred To Procedures Contact Contact No Auth Needed Radiology Diagnoses Moraima, Jessica, Bhb Mri Chronic DIRECTOR PRODUCT DEVELOPMENT [address] pancreatitis, [address] [place], [place] pancreatitis [place] 1023 [address] type (HCC) [place], [place] Phone: P [phone] rocedures Phone: MRI MRCP [phone] Reason for Visit * Reason Comments Results Follow-up Phone Call Encounter Details Date Type Department Care Team Description 02/04/2018 Telephone [facility] UtCharo weavera, DIRECTOR PRODUCT DEVELOPMENT Results; Follow-up Phone Physicians [address] Call Ortho and Medical [place] [address] [place] [address] [phone] [place] [address] Social History Tobacco Use Types [...] states she is currently in ER at [facility] d/t abd pain. Spoke to ER MD [...]
--- OUTSIDE RECORDS SUMMARY | 2018-02-24 14:11 | XMS REPORT | Encounter Summary ---
Author Author [facility] Organization [facility] Address Unknown Phone Unavailable Care Team Providers Care Checker Dump Grounds Name Role Phone Michael Sutton MD Unavailable Unavailable Mary Whittington MD PCP Jessica Valera Unavailable Maggie Puente Unavailable Unavailable Mary Telles SPEEDOMETER MECHANIC Unavailable Bam Ritter MD Unavailable Radha Bo LPN Unavailable Unavailable Jose Sanchez MD Unavailable Reason for Visit * Auth/Cert Status Reason Specialty Diagnoses / Referred By Referred To Procedures Contact Contact Diagnoses Other chronic pancreatitis (HCC) Intractable vomiting with nausea, unspecified vomiting type Other chronic pancreatitis (HCC) [K86.1] Intractable vomiting with nausea, unspecified vomiting type [R11.2] P rocedures GA ESOPHAGOGASTRODU ODENOSCOPY US SCOPE W/ADJ STRXRS ENDOSCOPIC ULTRASOUND REPORT ESOPHAGOGASTRODU ODENOSCOPY ENDOSCOPIC ULTRASOUND Encounter Details Date Type Department Care Team Description 01/31/2018 Anesthesia Gastrointenstinal Catherine Waters CRNA Event Endoscopy [address] [facility] [address] [place] [address] [place] [address] Anesthesia Record Procedure Name Responsible Anesthesia Start [...] Procedure(s): ESOPHAGOGASTRODUODENOSCOPY ENDOSCOPIC ULTRASOUND Surgeon: Surgeon(s): Hal Spakrs MD Desai, Madhav, MBBS Post-Anesthesia Vitals BP: [...] to three times a day as needed. hjhxil-jwlncnam-emmwdxj (VIOKACE) 20,880-78,300- 78,300 unit tab Take 3 [...] with patient Plan discussed with: anesthesiologist and DICE TABLE OPERATOR. Comments: (Risks of GETA including sore throat, oral/dental injury, allergic reactions, PONV, aspiration, respiratory failure, MO, CVA discussed with patient who reports understanding and consents to anesthetic plan. Araseli Mandel * Anesthesia Preprocedure Evaluation - Loretta Capellan CRNA - 01/31/2018 12:56 PM CDT [...] to three times a day as needed. kcvkex-rdhmdipa-utupnkt (VIOKACE) 20,880-78,300- 78,300 unit tab Take 3 [...] patient Blood Consent: consented Plan discussed with: DICE TABLE OPERATOR and anesthesiologist. Comments: (Risks of GETA including sore throat, oral/dental injury, allergic reactions, PONV, aspiration, respiratory failure, MO, CVA discussed with patient who reports understanding [...] 01/31/18 at 1349, Until Sat01/31/18 at 1410, Nausea/Vomiting Injectable, Anesthesia Intra-op propofol [...]
--- OUTSIDE RECORDS SUMMARY | 2018-02-24 14:12 | XMS REPORT | Encounter Summary ---
Author Author [facility] Organization [facility] Address Unknown Phone Unavailable Care Team Providers Care Sales Promotion Officer Name Role Phone Michael Sutton MD Unavailable Unavailable Mary Whittington MD PCP Jessica Valera Unavailable Maggie Puente Unavailable Unavailable Mary Telles APRN Unavailable Bam Ritter MD Unavailable Radha Bo LPN Unavailable Unavailable Jose Sanchez MD Unavailable Reason for Visit * Reason Comments Follow-up Phone Call Records Request Encounter Details Date Type Department Care Team Description 01/13/2018 Telephone [facility] Randy Nunez MD Follow- up Phone Call; Physicians - Internal [address] [place] [address] Records Request Medicine [place] [address] [place] [address] [address] [facility] [phone] [place] [address] [phone] Social History Tobacco Use Types Packs/Day Years [...] Patient has seen Dr. Sanchez, Surgeon in [place], [place] and believes patient needs another EUS. [...] patient aware requesting records from recent [facility] admission/discharge a few weeks ago, Dr. Sanchez and Dr. Whittington recent records to review. in this encounter Plan of Treatment Date Type Specialty Care Team Description 12/09/2017 Procedure Pass Oncology 12/09/2017 Procedure Pass Oncology as of this encounter Visit Diagnoses Not on filein this encounter
--- OUTSIDE RECORDS SUMMARY | 2018-02-24 14:12 | XMS REPORT | Encounter Summary ---
Author Author [facility] Organization [facility] Address Unknown Phone Unavailable Care Team Providers Care Aircraft Technician Name Role Phone Michael Sutton MD Unavailable Unavailable Mary Whittington MD PCP Jessica Valera Unavailable Maggie Puente Unavailable Unavailable Mary Telles APRN Unavailable Bam Ritter MD Unavailable Radha Bo LPN Unavailable Unavailable Jose Sanchez MD Unavailable Reason for Visit * Reason Comments Medication Update Encounter Details Date Type Department Care Team Description 12/25/2017 Telephone [facility] Abel Poe MD Medication Update Cancer Center - Exam [address] [facility] [place] [address] [place] [address] [place] [phone] Social History Tobacco Use Types Packs/Day Years [...] from her abd mesh. Her doctors in [place] asked her to keep her physicians here in the loop. Will relay info to Dr. Poe. in this encounter Plan of Treatment Date Type Specialty Care Team Description 12/09/2017 Procedure Pass Oncology 12/09/2017 Procedure Pass Oncology as of this encounter Visit Diagnoses Not on filein this encounter
--- OUTSIDE RECORDS SUMMARY | 2018-02-24 14:12 | XMS REPORT | Encounter Summary ---
Author Author [facility] Organization [facility] Address Unknown Phone Unavailable Care Team Providers Care Curbing Stonecutter Name Role Phone Michael Sutton MD Unavailable [...] nausea, unspecified vomiting type [R11.2] P rocedures [place] ESOPHAGOGASTRODU ODENOSCOPY US SCOPE W/ADJ STRXRS ENDOSCOPIC ULTRASOUND REPORT ESOPHAGOGASTRODU ODENOSCOPY ENDOSCOPIC ULTRASOUND Encounter Details Date Type Department Care Team Description 01/31/2018 Surgery Gastrointenstinal Hal Sparks MD ESOPHAGOGASTRODUODENOSCOP Endoscopy [address] ENDOSCOPIC ULTRASOUND [address] [place] [address] [place] [address] [place] [address] [phone] Social History Tobacco Use Types Packs/Day Years [...] After 5:00 pm, holidays or weekends call [phone] and ask for the GI Doctor station superintendent. in this encounter Medications at Time of [...] to three times a day as needed. bttugi-cuyflnhw-iidnzrf Take 3 tablets by mouth 300 tablet [...] Medication monitoring encounter as of this encounter H&P Notes * [...] 06/03/2017 TOTBILI 0.4 06/03/2017 JONA Salcedo Pager [phone] in this encounter Plan of Treatment Date Type Specialty Care Team Description 12/09/2017 Procedure Pass Oncology 12/09/2017 Procedure Pass Oncology as of this encounter Procedures Procedure Name [...] RESULTS Procedure Date: 01/31/2018 12:46 PM CSN: [id number] Date of : 1985 Gender: Female Attending Physician: Hal Spraks MD Procedure: Upper EUS Indications: Acute recurrent pancreatitis Providers: Hal Sparks MD (Doctor), Jake Crocker MD (Fellow), Delilah Jarquin RN (Nurse), Jose Mcclure (Grove Superintendent) Referring Physician: Randy Nunez MD, Jessica Valera [...] 45 seconds Procedure Code(s): --- Professional --- 14690, Esophagogastroduodenoscopy, flexible, transoral; with endoscopic ultrasound examination limited to the esophagus, stomach or duodenum, and adjacent structures CPT copyright 2016 [employer]. All rights reserved. The codes documented in this report are preliminary and upon hospital coder review may be revised to meet [...]
--- OUTSIDE RECORDS SUMMARY | 2018-02-24 14:12 | XMS REPORT | Encounter Summary ---
Author Author [facility] Organization [facility] Address Unknown Phone Unavailable Care Team Providers Care Janitorial Supervisor Name Role Phone Michael Sutton MD [...] Date Type Department Care Team Description 01/31/2018 [facility] Hal Sparks MD Other chronic Encounter Endoscopy [address] pancreatitis (HCC) [address] [place] [address] [place] [address] [place] [address] [phone] Social History Tobacco Use Types Packs/Day Years [...] After 5:00 pm, holidays or weekends call [phone] and ask for the GI Doctor director international. in this encounter Medications at Time of [...] to three times a day as needed. dmphiz-hgqdgwdo-crakmyn Take 3 tablets by mouth 300 tablet [...] 1ML INTO THE 1 mL 3 10/02/2017 09/06/ 2018 B-12, RUBRAMIN) 1,000 MUSCLE EVERY 30 DAYS [...] 06/03/2017 TOTBILI 0.4 06/03/2017 JONA Salcedo Pager [phone] in this encounter Plan of Treatment Date [...] RESULTS Procedure Date: 01/31/2018 12:46 PM CSN: [id number] Date of : 1985 Gender: Female Attending Physician: Hal Sparks MD Procedure: Upper EUS Indications: Acute recurrent pancreatitis Providers: Hal Sparks MD (Doctor), Jake Crocker MD (Fellow), Delilah Jarquin RN (Nurse), Jose Mcclure (Welfare Worker) Referring Physician: Randy Nunez MD, Jessica Valera [...] 45 seconds Procedure Code(s): --- Professional --- 61554, Esophagogastroduodenoscopy, flexible, transoral; with endoscopic ultrasound examination limited to the esophagus, stomach or duodenum, and adjacent structures CPT copyright 2016 [employer]. All rights reserved. The codes documented in this report are preliminary and upon grades 1 6 tutor review may be revised to meet current [...]
--- OUTSIDE RECORDS SUMMARY | 2018-02-24 14:12 | XMS REPORT | Encounter Summary ---
Author Author [facility] Organization [facility] Address Unknown Phone Unavailable Care Team Providers Care Baccarat Dealer Name Role Phone Michael Sutton MD Unavailable Unavailable Mary Whittington MD PCP Jessica Valera Unavailable Maggie Puente Unavailable Unavailable Mary Telles APRN Unavailable Bam Ritter MD Unavailable Radha Bo LPN Unavailable Unavailable Jose Sanchez MD Unavailable Reason for Visit * Reason Comments Medication Follow-up Encounter Details Date Type Department Care Team Description 12/17/2017 Telephone [facility] Jessica Valera ARNP Medication Follow-up Physicians [address] Ortho and Medical [place] [address] [place] [address] [address] [facility] [phone] [place] [address] Social History Tobacco Use Types [...] cramping and diarrhea. Spoke w/ Pao at [facility] who states pt has picked [...]
--- OUTSIDE RECORDS SUMMARY | 2018-02-24 14:12 | XMS REPORT | Encounter Summary ---
Author Author [facility] Organization [facility] Address Unknown Phone Unavailable Care Team Providers Care Waistline Joiner Overlock Name Role Phone Michael Sutton MD Unavailable Unavailable Mary Whittington MD PCP Jessica Valera Unavailable Maggie Puente Unavailable Unavailable Mary Telles APRN Unavailable Bam Ritter MD Unavailable Radha Bo LPN Unavailable Unavailable Jose Sanchez MD Unavailable Encounter Details Date Type Department Care Team Description 01/14/2018 Prep for Case [facility] Randy Nunez MD Other chronic Physicians [address] pancreatitis (HCC) Ortho and Medical MS 1023 (Primary Dx); [address] [place] [address] Intractable vomiting with [address] [phone] nausea, unspecified [place], [place] vomiting type [phone] Social History Tobacco [...]
--- OUTSIDE RECORDS SUMMARY | 2018-02-24 14:12 | XMS REPORT | Encounter Summary ---
Author Author [facility] Organization [facility] Address Unknown Phone Unavailable Care Team Providers Care Rewinder Name Role Phone Micheal Sutton MD Unavailable Unavailable Mary Whittington MD PCP Jessica Valera Unavailable Maggie Puente Unavailable Unavailable Mary Telles APRN Unavailable Bam Ritter MD Unavailable Radha Bo LPN Unavailable Unavailable Jose Sanchez MD Unavailable Reason for Visit * Reason Comments Follow-up Phone Call Encounter Details Date Type Department Care Team Description 01/07/2018 Telephone [facility] Randy Nunez MD Follow- up Phone Call Physicians - Internal [address] Medicine [place] [address] [place] [address] [address] [facility] [phone] [place] [address] [phone] Social History Tobacco Use Types Packs/Day Years [...]
--- OUTSIDE RECORDS SUMMARY | 2018-02-24 14:12 | XMS REPORT | Encounter Summary ---
Author Author [facility] Organization [facility] Address Unknown Phone Unavailable Care Team Providers Care Rn Document Improvement Name Role Phone Michael Sutton MD Unavailable Unavailable Mary Whittington MD PCP Jessica Valera Unavailable Maggie Puente Unavailable Unavailable Mary Telles APRN Unavailable Bam Ritter MD Unavailable Radha Bo LPN Unavailable Unavailable Jose Sanchez MD Unavailable Reason for Visit * Reason Comments Appointment Request Encounter Details Date Type Department Care Team Description 01/14/2018 Telephone [facility] Hal Sparks MD Appointment Request Physicians [address] Ortho and Medical [place] [address] [place] [address] [address] [facility] [phone] [place] [address] Social History Tobacco Use Types [...] thinning medications. Prep instructions emailed to pt [email or web address] No further f/u needed * Telephone Encounter - Sharon Velásquez LPN - 01/14/2018 1:45 PM CDT Order placed for Upper Eus with Dr. Sparks. Routing to [place] to review and advise in this encounter Plan of Treatment Date Type Specialty Care Team Description 12/09/2017 Procedure Pass Oncology 12/09/2017 Procedure Pass Oncology as of this encounter Visit Diagnoses Not on filein this encounter
--- OUTSIDE RECORDS SUMMARY | 2018-02-24 14:13 | XMS REPORT | Encounter Summary ---
Author Author [facility] Organization [facility] Address Unknown Phone Unavailable Care Team Providers Care Vacuum Cleaner Assembler Name Role Phone Michael Sutton MD Unavailable Unavailable Mary Whittington MD PCP UtJessica weaver Unavailable Maggie Puente Unavailable Unavailable Mary Telles APRN Unavailable Bam Ritter MD Unavailable Radha Bo LPN Unavailable Unavailable Jose Sanchez MD Unavailable Encounter Details Date Type Department Care Team Description 12/16/2017 Orders Only [facility] Jessica Valera ARNP Diarrhea, unspecified Physicians [address] type Ortho and Medical MS [address] [place] [address] [phone] [place] [address] Social History Tobacco Use Types [...]
--- OUTSIDE RECORDS SUMMARY | 2018-02-24 14:13 | XMS REPORT | Encounter Summary ---
Author Author [facility] Organization [facility] Address Unknown Phone Unavailable Care Team Providers Care Relay Motorman Name Role Phone Michael Sutton MD Unavailable Unavailable Mary Whittington MD PCP Jessica Valera Unavailable Maggie Puente Unavailable Unavailable Mary Telles MACHINE OPERATOR FARMWORKER Unavailable Bam Ritter MD Unavailable Radha Bo CHAIN HOIST OPERATOR Unavailable Unavailable Jose Sanchez MD Unavailable Reason for Visit * Reason Comments Abdominal pain Constipation Diarrhea Nausea Vomiting Encounter Details Date Type Department Care Team Description 12/09/2017 Office Visit [facility] Jessica Valera ARNP Diarrhea, unspecified Physicians - Internal [address] type (Primary Dx); Medicine [place] 1023 Epigastric pain; [place] [address] Chronic pancreatitis, [address] [phone] [place] [address] type (HCC); [phone] Nausea and vomiting, intractability of vomiting not [...] if you have any questions or concerns. [phone]. in this encounter Progress Notes * Jessica [...] has been to cancer Center treatment in [place] regarding a left lung nodule. She is scheduled to go back there again early in December. She also had a repeat CT chest/abdomen CT today which shows a stable left lobe pulmonary or pleural nodule which is apparently unchanged from previous imaging. Dr. Poe/ nephrology who ordered a CT recommended repeat imaging in 6 months. She plans to discuss this recommendation with her [place] provider as well. Since I saw her [...] repeat imaging 6 months. Patient seen at [facility] after 08/2017 OV, has follow up early [...] with her colonoscopy in 2017 done in [place]. Will treat internal hemorrhoids with Anusol HC suppository nightly for at least 7 days and treat external hemorrhoids with Preparation H rfiy-ips-eolqlne 2-3 times a day. She is to [...] review. 5. She will follow-up at the [facility] in [place] early December as planned regarding the left [...] Address City/State/Zipcode Phone Number MAIN LAB [address] [place] [address] * GIARDIA SCREEN,FECAL (12/11/2017) Narrative Performed At Performing Organization Address City/[facility]/Zipcode Phone Number MAIN LAB [address] [place] [address] * CRYPTOSPORIDUM,FECAL (12/11/2017) Specimen Stool Narrative Performed At Performing Organization Address City/[facility]/Zipcode Phone Number MAIN LAB [address] [place] [address] * CULTURE-FECES W/SENSITIVITY (12/11/2017) Specimen Stool Narrative Performed At Performing Organization Address [facility] Phone Number MAIN LAB [address] [place] [address] * C DIFFICILE BY PCR (12/11/2017) Narrative Performed At Performing Organization Address City/State/Zipcode Phone Number OTHER OUTSIDE LAB in this encounter Visit Diagnoses Diagnosis Diarrhea, unspecified type - Primary Epigastric pain Abdominal pain, epigastric Chronic pancreatitis, unspecified pancreatitis type (HCC) Nausea and vomiting, intractability of vomiting not specified, unspecified vomiting type
--- OUTSIDE RECORDS SUMMARY | 2018-02-24 14:13 | XMS REPORT | Encounter Summary ---
Author Author [facility] Organization [facility] Address Unknown Phone Unavailable Care Team Providers Care Staff Nurse Anesthetist Name Role Phone Michael Sutton MD Unavailable Unavailable Mary Whittington MD PCP Jessica Valera Unavailable Maggie Puente Unavailable Unavailable Mary Telles APRN Unavailable Bam Ritter MD Unavailable Radha Bo LPN Unavailable Unavailable Jose Sanchez MD Unavailable Reason for Visit * Reason Comments Other Encounter Details Date Type Department Care Team Description 12/13/2017 Telephone [facility] Randy Nunez MD Other Physicians - Internal [address] [facility] Medicine [place] [address] [place] [address] [facility] [phone] [place] [address] [phone] Social History Tobacco Use Types Packs/Day Years [...]
--- OUTSIDE RECORDS SUMMARY | 2018-02-24 14:13 | XMS REPORT | Encounter Summary ---
Author Author [facility] Organization [facility] Address Unknown Phone Unavailable Care Team Providers Care Civil Division Deputy Sheriff Name Role Phone Michael Sutton MD Unavailable Unavailable Mary Whittington MD PCP Jessica Valera Unavailable Maggie Puente Unavailable Unavailable Mary Telles APRN Unavailable Bam Ritter MD Unavailable Radha Bo LPN Unavailable Unavailable Jose Sanchez MD Unavailable Reason for Visit * Reason Comments Other plan of care Encounter Details Date Type Department Care Team Description 12/11/2017 Telephone [facility] Jessica Valera ARNP Other (plan of care) Physicians [address] Ortho and Medical MS [address] [place] [address] [address] [facility] [phone] [place] [address] Social History Tobacco Use Types [...]
--- OUTSIDE RECORDS SUMMARY | 2018-02-24 14:13 | XMS REPORT | Encounter Summary ---
Author Author [facility] Organization [facility] Address Unknown Phone Unavailable Care Team Providers Care Combine Inspector Name Role Phone Michael Sutton MD Unavailable Unavailable Mary Whittington MD PCP Jessica Valera Unavailable Maggie Puente Unavailable Unavailable Mary Telles APRN Unavailable Bam Ritter MD Unavailable Radha Bo LPN Unavailable Unavailable Jose Sanchez MD Unavailable Reason for Visit * Reason Comments C Diff Positive C Diff Encounter Details Date Type Department Care Team Description 12/13/2017 Telephone [facility] Jessica Valera ARNP C Diff (Positive C Diff) Physicians [address] [facility] Ortho and Medical MS [address] [place] [address] [address] [facility] [phone] [place] [address] Social History Tobacco Use Types [...] and cleaning with a 1:10 bleach solution, [employer] message sent with additional information. Pt to call PRN and w/ progress report after finishing abx. * Telephone Encounter - Radha Bo LPN - 12/13/2017 11:39 AM CDT Attempted to contact pt. LVM to return call. * Telephone Encounter - Jessica Valera ARNP - 12/13/2017 11:35 AM CDT Due to her significant N/V called Luke/Pharmacist at [facility] to see if Vanco 125 mg [...]
--- OUTSIDE RECORDS SUMMARY | 2018-02-24 14:13 | XMS REPORT | Encounter Summary ---
Author Author [facility] Organization [facility] Address Unknown Phone Unavailable Care Team Providers Care Metal Fabricating Shop Helper Name Role Phone Michael Sutton MD Unavailable Unavailable Mary Whittington MD PCP Jessica Valera Unavailable Maggie Puente Unavailable Unavailable Mary Telles APRN Unavailable Bam Ritter MD Unavailable Radha Bo LPN Unavailable Unavailable Jose Sanchez MD Unavailable Encounter Details Date Type Department Care Team Description 12/10/2017 Ancillary Rad Outpatient, Radiologist Diagnosis unknown Orders [address] [place] [address] Social History Tobacco Use Types [...]
--- OUTSIDE RECORDS SUMMARY | 2018-02-24 14:13 | XMS REPORT | Encounter Summary ---
Author Author [facility] Organization [facility] Address Unknown Phone Unavailable Care Team Providers Care Mixing Tumbler Operator Name Role Phone Michael Sutton MD Unavailable Unavailable Mary Whittington MD PCP UtJessica weaver Unavailable Maggie Puente Unavailable Unavailable Mary Telles APRN Unavailable Bam Ritter MD Unavailable Radha Bo LPN Unavailable Unavailable Jose Sanchez MD Unavailable Encounter Details Date Type Department Care Team Description 12/17/2017 Orders Only [facility] Jessica Valera ARNP Diarrhea, unspecified Physicians [address] type Ortho and Medical [place] [address] [place] [address] [phone] [place] [address] Social History Tobacco Use Types [...] Stool Narrative Performed At Performing Organization Address City/[facility] Phone Number [facility] [address] [place] [address] * GIARDIA SCREEN,FECAL (12/11/2017) Narrative Performed At Performing Organization Address City/State/Zipcode Phone Number MAIN LAB [address] [place] [address] * CRYPTOSPORIDUM,FECAL (12/11/2017) Specimen Stool Narrative Performed At Performing Organization Address [facility] Phone Number [facility] [address] [place] [address] * CULTURE-FECES W/SENSITIVITY (12/11/2017) Specimen Stool Narrative Performed At Performing Organization Address [facility] Phone Number [facility] [address] [place] [address] in this encounter Visit Diagnoses Diagnosis Diarrhea, unspecified type
--- OUTSIDE RECORDS SUMMARY | 2018-02-24 14:13 | XMS REPORT | Encounter Summary ---
Author Author [facility] Organization [facility] Address Unknown Phone Unavailable Care Team Providers Care Sand Mill Operator Facing Sand Name Role Phone Michael Sutton MD Unavailable Unavailable Mary Whittington MD PCP Jessica Valera Unavailable Maggie Puente Unavailable Unavailable Mary Telles APRN Unavailable Bam Ritter MD Unavailable Radha Bo LPN Unavailable Unavailable Jose Sanchez MD Unavailable Encounter Details Date Type Department Care Team Description 12/10/2017 Ancillary Rad Outpatient, Radiologist Diagnosis unknown Orders [address] [place] [address] Social History Tobacco Use Types [...]
--- OUTSIDE RECORDS SUMMARY | 2018-02-24 14:13 | XMS REPORT | Encounter Summary ---
Author Author [facility] Organization [facility] Address Unknown Phone Unavailable Care Team Providers Care Electrical Engineering Technologist Name Role Phone Michael Sutton MD Unavailable Unavailable Mary Whittington MD PCP Jessica Valera Unavailable Maggie Puente Unavailable Unavailable Mary Telles RESEARCH/PROGRAM DIRECTOR Unavailable Bam Ritter MD Unavailable Radha Bo LPN Unavailable Unavailable Jose Sanchez MD Unavailable Reason for Visit * Reason Comments Prior Authorization Viokace Encounter Details Date Type Department Care Team Description 12/13/2017 Telephone [facility] Jessica Valera ARNP Prior Authorization Physicians [address] (Viokace ) Ortho and Medical [place] [address] [place] [address] [phone] [place] [address] Social History Tobacco Use Types [...] CDT Contacted patient's insurance at phone number [phone] to check the status of PA on medication Viokace, PA has been approved with authorized dates of 12/11- with no end date given yet. * Telephone Encounter - Senait Jarquin - 12/13/2017 10:42 AM CDT Completed PA for medication Viokace diagnosis chronic pancreatitis through [facility] guillermo code [id number], waiting for approval or denial in this encounter Plan of Treatment Date Type Specialty Care Team Description 12/09/2017 Procedure Pass Oncology 12/09/2017 Procedure Pass Oncology as of this encounter Visit Diagnoses Not on filein this encounter
--- OUTSIDE RECORDS SUMMARY | 2018-02-24 14:13 | XMS REPORT | Encounter Summary ---
Author Author [facility] Organization [facility] Address Unknown Phone Unavailable Care Team Providers Care Field Sales Trainer Name Role Phone Michael Sutton MD Unavailable Unavailable Mary Whittington MD PCP Jessica Valera Unavailable Maggie Puente Unavailable Unavailable Mary Telles APRN Unavailable Bam Ritter MD Unavailable Radha Bo LPN Unavailable Unavailable Jose Sanchez MD Unavailable Encounter Details Date Type Department Care Team Description 12/10/2017 Ancillary Rad Outpatient, Radiologist Orders [address] [place] [address] Social History Tobacco Use Types [...]
--- OUTSIDE RECORDS SUMMARY | 2018-02-24 14:13 | XMS REPORT | Encounter Summary ---
Author Author [facility] Organization [facility] Address Unknown Phone Unavailable Care Team Providers Care Employee Wellness/Fitness Coordinator Name Role Phone Michael Sutton MD Unavailable Unavailable Mary Whittington MD PCP Jessica Valera Unavailable Maggie Puente Unavailable Unavailable Mary Telles APRN Unavailable Bam Ritter MD Unavailable Camron Bo LPN Unavailable Unavailable Jose Sanchez MD Unavailable Reason for Visit * Reason Comments Prior Authorization Hydrocortisone rectal suppository 25mg Encounter Details Date Type Department Care Team Description 12/10/2017 Telephone [facility] Jessica Valera ARNP Prior Authorization Physicians - Internal [address] (Hydrocortisone rectal Medicine [place] 1023 suppository 25mg ) [facility] [place] [address] [address] [facility] [phone] [place] [address] [phone] Social History Tobacco Use Types Packs/Day Years [...] stated she is seeing her PCP in [place], [place] today and will call back office [...] via fax and it was denied. Per access service representative alternative medication that is covered is [...]
--- OUTSIDE RECORDS SUMMARY | 2018-02-24 14:14 | XMS REPORT | Encounter Summary ---
Author Author [facility] Organization [facility] Address Unknown Phone Unavailable Care Team Providers Care Cooperative Extension Agent Name Role Phone Michael Sutton MD Unavailable Unavailable Mary Whittington MD PCP Jessica Valera Unavailable Maggie Puente Unavailable Unavailable Mary Telles INDIVIDUAL PENSION ADVISER Unavailable Bam Ritter MD Unavailable Radha Bo CABLE PULLER Unavailable Unavailable Jose Sanchez MD Unavailable Reason for Referral * Radiology Services Status Reason Specialty Diagnoses / Referred By Referred To Procedures Contact Contact New Request Radiology Diagnoses Abel Poe MD Left renal mass [address] [place] [address] [address] * Radiology Services Status Reason Specialty Diagnoses / Referred By Referred To Procedures Contact Contact New Request Radiology Diagnoses Abel Poe MD Left renal mass [address] [place] [address] [place], [place] [address] Reason for Visit * Reason Comments Heme/Onc Care Encounter Details Date Type Department Care Team Description 12/09/2017 Office Visit [facility] Abel Poe MD Left renal mass ([facility] [address] Dx) [facility] [place] [address] [place] [address] [place], [place] [phone] Social History Tobacco Use Types Packs/Day Years [...]
--- OUTSIDE RECORDS SUMMARY | 2018-02-24 14:14 | XMS REPORT | Encounter Summary ---
Author Author [facility] Organization [facility] Address Unknown Phone Unavailable Care Team Providers Care Aviation All Source Intelligence Name Role Phone Michael Sutton MD Unavailable Unavailable Mary Whittington MD PCP Jessica Valera Unavailable Maggie Puente Unavailable Unavailable Mary Telles HABILITATION TRAINING SPECIALIST Unavailable Bam Ritter MD Unavailable Radha Bo DOCKWORKER Unavailable Unavailable Jose Sanchez MD Unavailable Reason for Referral * Radiology Services Status Reason Specialty Diagnoses / Referred By Referred To Procedures Contact Contact No Auth Needed Radiology Diagnoses Abel Poe MD [address] Left renal mass [address] [place] [address] [place] [address] [place] [address] [place], [place] Phone: [place] [phone] Phone: * Radiology Services Status Reason Specialty Diagnoses / Referred By Referred To Procedures Contact Contact No Auth Needed Radiology Diagnoses Abel Poe MD [address] Left renal mass [address] [place] [address] rocedures MS [facility] [place] [address] [address] [place], [place] Phone: [place] [phone] Phone: * Radiology Services Status Reason Specialty Diagnoses / Referred By Referred To Procedures Contact Contact No Auth Needed Radiology Diagnoses Abel Poe MD [address] Left renal mass [address] [place] [address] [place] [address] [place] [address] [place] [address] Phone: * Radiology Services Status Reason Specialty Diagnoses / Referred By Referred To Procedures Contact Contact No Auth Needed Radiology Diagnoses Abel Poe MD [address] Left renal mass [address] [place] [address] [place] [address] [place] [address] [place] [phone] Phone: Reason for Visit * Radiology Services Status Reason Specialty Diagnoses / Referred By Referred To Procedures Contact Contact No Auth Needed Radiology Diagnoses Abel Poe MD [address] Left renal mass [address] [place] [address] [place] [address] [place] [address] [address] [place] Phone: [place] [phone] Phone: Encounter Details Date Type Department Care Team Description 12/09/2017 [facility] Abel Poe MD Encounter [facility] Radiology [address] [place] [address] [place] [address] [place] [address] [phone] Social History Tobacco Use Types Packs/Day Years [...] 30 DAYS mcg/mL injectionIndications: Medication monitoring encounter hydrocortisone Insert or Apply [...] Organization Address City/State/Zipcode Phone Number MAIN LAB [address] [place] [address] * CT [address] [place] (12/09/2017 9:55 [...]
--- OUTSIDE RECORDS SUMMARY | 2018-02-24 14:14 | XMS REPORT | Encounter Summary ---
Author Author [facility] Organization [facility] Address Unknown Phone Unavailable Care Team Providers Care Manager Speech Name Role Phone Michael Sutton MD Unavailable Unavailable Mary Whittington MD PCP Jessica Valera Unavailable Maggie Puente Unavailable Unavailable Mary Telles APRN Unavailable Bam Ritter MD Unavailable Radha Bo LPN Unavailable Unavailable Jose Sanchez MD Unavailable Encounter Details Date Type Department Care Team Description 05/06/2017 Procedure Pass [facility] Radiology [address] [place] [address] Social History Tobacco Use Types [...]
--- OUTSIDE RECORDS SUMMARY | 2018-02-24 14:14 | XMS REPORT | Encounter Summary ---
Author Author [facility] Organization [facility] Address Unknown Phone Unavailable Care Team Providers Care Steam Pipe Fitter Name Role Phone Michael Sutton MD Unavailable Unavailable Mary Whittington MD PCP Jessica Valera Unavailable Maggie Puente Unavailable Unavailable Mary Telles APRN Unavailable Bam Ritter MD Unavailable Radha Bo LPN Unavailable Unavailable Jose Sanchez MD Unavailable Reason for Visit * Reason Comments Other Encounter Details Date Type Department Care Team Description 12/04/2017 Telephone [facility] Randy Nunez MD Other Physicians - Internal [address] [facility] Medicine [place] [address] [place] [address] [address] [facility] [phone] [place] [address] [phone] Social History Tobacco Use Types Packs/Day Years [...]
--- OUTSIDE RECORDS SUMMARY | 2018-02-24 14:14 | XMS REPORT | Encounter Summary ---
Author Author [facility] Organization [facility] Address Unknown Phone Unavailable Care Team Providers Care Certified Medical Records Coder Name Role Phone Michael Sutton MD Unavailable Unavailable Mary Whittington MD PCP Jessica Valera Unavailable Maggie Puente Unavailable Unavailable Mary Telles APRN Unavailable Bam Ritter MD Unavailable Radha Bo LPN Unavailable Unavailable Jose Sanchez MD Unavailable Encounter Details Date Type Department Care Team Description 05/06/2017 Procedure Pass [facility] Radiology [address] [place] [address] Social History Tobacco Use Types [...]
--- OUTSIDE RECORDS SUMMARY | 2018-02-24 14:15 | XMS REPORT ---
Author Author SAI CARMEN [facility] Address [address] [place] [address] Care Team Providers Care Broth Setter Name Role Phone SAICORTNEY KOENIGHANY Unavailable PROBLEMS Type Condition ICD9-CM Code XOC09-ZS Code Onset Dates Condition Status SNOMED Code Problem Polydipsia R63.1 Active 83097989 Problem Trichotillomania F63.3 Active 14235721 Problem Atelectasis J98.11 Active 55130683 Problem Intestinal malabsorption, unspecified K90.9 Active 17070481 Problem Chronic fatigue R53.82 Active 36069013 Problem Generalized social phobia F40.11 Active 65333767 Problem Restless leg syndrome G25.81 Active 15117088 Problem Moderate episode of recurrent major depressive disorder F33.1 Active 142864649 Problem Chronic post-traumatic stress disorder (PTSD) F43.12 Active 431984696 Problem History of renal cell carcinoma Z85.528 Active 249713045 Problem Chronic tension-type headache, intractable G44.221 Active 329334191 Problem Nodule of left lung R91.1 Active 915890210 Problem Hirsuties L68.0 Active 678507093 Problem FH: polycystic ovary Z84.2 Active 877089614 Problem Morbid (severe) obesity due to excess calories E66.01 Active 704983029 Problem Chronic pancreatitis K86.1 Active 875810090 Problem Hyperlipidemia, mixed E78.2 Active 100999701 Problem Asthma J45.909 Active 227110529 ALLERGIES Substance Reaction Event Type Date Status Vancomycin HCl itching Drug Allergy Dec, Active Penicillin V Potassium Unknown Drug Allergy Dec, Active Fentanyl Unknown Drug Allergy Dec, Active Demerol Unknown Drug Allergy Dec, Active ENCOUNTERS Encounter Location Date Diagnosis [facility] [address] [facility] [id number] [place] [address] Mar, [facility] [address] [address] Feb, [facility] [address] [id number] [place] [address] 50939- 0937 Jan, Acute pain of right knee M25.561 ; Right upper quadrant abdominal pain R10.11 and BMI 45.0-49.9, adult Z68.42 [facility] [place] [id number] [place] [address] 79341- 1336 Jan, [facility] [id number] [place] [address] 37599- 2374 Jan, [facility] [id number] [place] [address] 41878- 7020 Dec, [facility] [id number] [place] [address] 89003- 5335 Dec, Intestinal malabsorption, unspecified K90.9 and Diarrhea, unspecified R19.7 [facility] [id number] [place] [address] 28134- 7100 Dec, [facility] [id number] [place] [address] 03691- 7749 Dec, Strep throat J02.0 ; Intestinal malabsorption, unspecified K90.9 ; Diarrhea, unspecified R19.7 ; Postoperative seroma involving digestive system after non-digestive system procedure K91.873 ; Hyperlipidemia, mixed E78.2 and BMI 45.0-49.9, adult Z68.42 [facility] [id number] [place] [address] 31511- 7453 Dec, [facility] [id number] [place] [address] 48112- 8083 Dec, Nausea R11.0 [facility] [id number] [place] [address] 25926- 3735 Dec, [facility] [id number] [place] [address] 23035 -7550 17 Harshad, 2018 Sore throat J02.9 ; Strep throat J02.0 and BMI 45.0-49.9, adult Z68.42 [facility] [id number] [place] [address] 1446 Dec, [facility] [address] [facility] [id number] [place] [address]- 3150 Dec, [facility] [id number] [place] [address]- 8280 Dec, [facility] [address] [facility] [id number] [place] [address]- 4796 Dec, [facility] [id number] [place] [address]- 1804 Dec, [facility] [address] [address]- 6494 Dec, [facility] [id number] [place] [address]- 3505 Dec, [facility] [address] [address]- 9132 Dec, [facility] [address] [address] 0078 Dec, Clostridium difficile colitis A04.72 ; Intractable vomiting with nausea, unspecified vomiting type R11.2 and BMI 45.0-49.9, adult Z68.42 [facility] [address] [address]- 2077 Dec, [facility] [address] [address]- 5587 Nov, [facility] [address] [address]- 7704 Nov, [facility] [address] [address]- 7612 Nov, [facility] [address] [address]- 0108 Nov, [facility] [id number] [place] [address] 32334 -0610 Nov, [facility] [id number] [place] [address] 42784- 4896 Nov, Hyperlipidemia, mixed E78.2 [facility] [id number] [place] [address] 31854 -0209 Nov, Acute suppurative otitis media of right ear without spontaneous rupture of tympanic membrane, recurrence not specified H66.001 and BMI 45.0-49.9, adult Z68.42 [place] [address] 40899- 0788 Nov, Hyperlipidemia, mixed E78.2 [facility] [id number] [place] [address] 46601- 4307 Nov, [facility] [place] [address] 18810- 2919 Nov, [facility] [id number] [place] [address] 55504- 9068 Nov, Nodule of left lung R91.1 [place] [id number] [place] [address] 28567- 8633 04 Nov, 2017 Medicare annual wellness visit, [...] adult Z68.42 and Encounter for immunization Z23 [facility] [place] [id number] [place] [address] 03272- 0161 October, [address] [place] [address] 5955 October, Nodule of left lung R91.1 [place] [address] 54750- 0729 October, Nodule of left lung R91.1 [facility] [place] [id number] [place] [address] 48344- 1811 October, Recurrent major depressive disorder, in partial remission F33.41 ; Restless leg syndrome G25.81 ; Generalized social phobia F40.11 ; Chronic post-traumatic stress disorder (PTSD) F43.12 ; BMI 45.0-49.9, adult Z68.42 and Trichotillomania F63.3 [place] [address] 18625- 8005 October, [facility] [id number] [place] [address] 29499- 2462 Sep, Chronic fatigue R53.82 and BMI 45.0-49.9, adult Z68.42 [facility] [id number] [place] [address] 45965- 4743 Aug, [place] [address] 15070- 1825 Jul, Restless leg syndrome G25.81 and B12 deficiency E53.8 [facility] [id number] [place] [address] 32530- 8256 Jul, [facility] [id number] [place] [address] 51751- 2533 Jul, [facility] [place] [id number] [place] [address] 15053- 5254 Jun, [facility] [place] [id number] [place] [address] 74376- 5222 Jun, Fatigue, unspecified type R53.83 ; History of renal cell carcinoma Z85.528 ; Chronic pancreatitis K86.1 ; Restless leg syndrome G25.81 ; Dark urine R82.99 and BMI 45.0-49.9, adult Z68.42 [place] [address] [address]- 8596 Jun, [facility] [address] [address]- 5820 Jun, [facility] [place] [id number] [place] [address] 52504- 9910 Jun, [facility] [id number] [place] [address] 80659- 8446 Jun, [facility] [id number] [place] [address] 57259- 3839 May, Chronic post-traumatic stress disorder (PTSD) F43.12 ; Moderate episode of recurrent major depressive disorder F33.1 ; Trichotillomania F63.3 and Generalized social phobia F40.11 [facility] [id number] [place] [address] 54916- 1247 May, [facility] [place] [address] [address]- 8491 May, Chronic post-traumatic stress disorder (PTSD) F43.12 ; Moderate episode of recurrent major depressive disorder F33.1 ; Trichotillomania F63.3 and Generalized social phobia F40.11 [facility] [address] [address]- 2646 May, Hyperlipidemia, mixed E78.2 ; Morbid (severe) obesity due to excess calories E66.01 ; Chronic post-traumatic stress disorder (PTSD) F43.12 ; Moderate episode of recurrent major depressive disorder F33.1 ; Trichotillomania F63.3 and Generalized social phobia F40.11 [facility] [address] [address]- 6547 Apr, [facility] [place] [address] [address]- 1541 Apr, Hyperlipidemia, mixed E78.2 ; Morbid (severe) obesity due to excess calories E66.01 ; Chronic post-traumatic stress disorder (PTSD) F43.12 ; Moderate episode of recurrent major depressive disorder F33.1 ; Trichotillomania F63.3 and Generalized social phobia F40.11 [facility] [id number] [place] [address] 24200- 4304 Apr, Trichotillomania F63.3 ; Generalized social phobia F40.11 ; Chronic post-traumatic stress disorder (PTSD) F43.12 and Moderate episode of recurrent major depressive disorder F33.1 [facility] [id number] [place] [address] 73057- 8867 Apr, [place] [address] 54283- 4330 Apr, [facility] [place] [id number] [place] [address] 59647- 0996 Mar, Moderate episode of recurrent major depressive disorder F33.1 ; Trichotillomania F63.3 ; Chronic post-traumatic stress disorder (PTSD) F43.12 ; Generalized social phobia F40.11 and Restless leg syndrome G25.81 [facility] [place] [id number] [place] [address] 67370- 8402 Mar, [facility] [id number] [place] [address] 76053- 2594 Mar, [facility] [place] [id number] [place] [address] 73618- 9068 Feb, Left kidney mass N28.89 [facility] [id number] [place] [address] 73832- 0295 Jan, [facility] [place] [id number] [place] [address] 29107- 5611 Dec, Polydipsia R63.1 ; Chronic pancreatitis K86.1 and Fatigue, unspecified type R53.83 [place] [address] 77052- 9552 Nov, [facility] [id number] [place] [address] 68677- 5294 Nov, [facility] [id number] [place] [address] 62303- 1135 Nov, Headache around the eyes R51 [facility] [id number] [place] [address] 77151- 1830 Nov, [facility] [id number] [place] [address] 83721- 5175 October, STD exposure Z20.2 [facility] [address] 54944- 0910 October, STD exposure Z20.2 [facility] [id number] [place] [address] 07438- 7184 October, Chronic post-traumatic stress disorder (PTSD) F43.12 ; Generalized social phobia F40.11 ; Trichotillomania F63.3 and Restless leg syndrome G25.81 [facility] [id number] [place] [address] 99540- 0376 October, [facility] [id number] [place] [address] 08592- 7183 Sep, [facility] [id number] [place] [address] 08082- 0036 Aug, [facility] [id number] [place] [address] 33386- 5265 Aug, [facility] [id number] [place] [address] 35409- 7373 Aug, Neck mass R22.1 [facility] [id number] [place] [address] 52530- 6650 Aug, Atelectasis J98.11 [facility] [id number] [place] [address] 68679- 2335 28 Feb, 2017 Hyperlipidemia, mixed E78.2 ; Atypical pneumonia J18.9 and Neck mass R22.1 [place] [id number] [place] [address] 53109- 5996 15 Jul, 2016 Hemoptysis R04.2 [place] [id number] [place] [address] 77833- 6812 08 Jul, 2016 Acute non-recurrent pansinusitis J01.40 ; Hemoptysis R04.2 ; Polydipsia R63.1 and Malaise R53.81 [facility] [place] [id number] [place] [address] 52212 -1624 May, Other viral agents as the cause of diseases classified elsewhere B97.89 and Acute upper respiratory infection, unspecified J06.9 [facility] [place] [id number] [place] [address] 74494 -6013 Mar, Nausea R11.0 [facility] [address] 13900 -5837 28 Dec, 2015 Hives L50.[address] 56331- 9109 14 Dec, 2015 [facility] [place] [id number] [place] [address] 39859 -8454 Dec, Cutaneous abscess of limb, unspecified L02.419 ; Cellulitis of unspecified part of limb L03.119 ; Encounter for incision and drainage procedure Z01.89 and Encounter for recheck of abscess following incision and drainage Z09 [facility] [place] [id number] [place] [address] 51179 -7835 09 Dec, 2015 Abscess of leg, right L02.[address] 95101- 3429 08 Dec, 2015 Cellulitis of unspecified part of limb L03.119 and Cutaneous abscess of limb, unspecified L02.[address] 19797- 9800 Dec, [facility] [address] [place] [address] 69449- 7492 Dec, [facility] [id number] [place] [address] 20370 -6998 Aug, [facility] [id number] [place] [address] 07574- 5382 Aug, [facility] [id number] [place] [address] 63096 -4427 Jul, Pain in unspecified wrist M25.539 and Back pain, thoracic M54.6 [facility] [place] [id number] [place] [address] 00474 -6699 Jun, Strain of right wrist, initial encounter S66.911A [place] [id number] [place] [address] 13598- 4007 Jun, Chronic pancreatitis, unspecified pancreatitis type K86.1 ; Hirsuties L68.0 ; Morbid (severe) obesity due to excess calories E66.01 ; Chronic pancreatitis K86.1 and Asthma J45.909 [facility] [id number] [place] [address] 53463- 1849 May, [place] [id number] [place] [address] 53649- 4140 May, Hyperlipidemia, mixed E78.2 and Muscle spasm of back M62.830 [facility] [id number] [place] [address] 79331- 8615 30 Apr, 2015 [place] [id number] [place] [address] 94830- 8193 Apr, Torticollis M43.6 [place] [id number] [place] [address] 77968- 9467 09 Apr, 2015 Right-sided thoracic back pain M54.6 [facility] [id number] [place] [address] 23849- 7073 Mar, Rash R21 [facility] [address] [address]- 1922 Mar, [facility] [id number] [place] [address] 603657- 4918 Jan, [facility] [id number] [place] [address] 95485- 7622 Dec, [facility] [id number] [place] [address] 749028- 1015 Dec, Urinary frequency 788.41 and Nocturia more than twice per night 788.43 [facility] [id number] [place] [address] 82080- 1398 Nov, [facility] [id number] [place] [address] 02087- 7363 Nov, [facility] [id number] [place] [address] 67371- 8578 Nov, Abdominal pain 789.00 [facility] [address] [place] [address] 68030- 3230 October, TDAP DX V06.1 [facility] [id number] [place] [address] 21459- 3125 October, [facility] [address] [place] [address] 20999- 6996 October, Disturbance of skin sensation 782.0 ; Wrist pain, right 719.43 ; Hyperlipidemia 272.4 and Skin lesion of face 709.9 [facility] [address] [address]- 0446 Sep, [facility] [id number] [place] [address] 171792- 4552 Sep, [facility] [address]- 7788 Aug, [facility] [address] [place] [address] [place] [address]- 5373 26 Aug, 2014 [facility] [place] [facility] [address] [id number] [place] [address]- 4433 23 Aug, 2014 [facility] [place] [facility] [address] [id number] [place] [address]- 4567 23 Aug, 2014 [facility] [place] [facility] [address] [id number] [place] [address]- 5536 16 Aug, 2014 [facility] [place] [facility] [address] [id number] [place] [address]- 2687 16 Aug, 2014 [facility] [place] [facility] [address] [id number] [place] [address]- 4110 14 Aug, 2014 [facility] [place] [facility] [address] [id number] [place] [address]- 7899 14 Aug, 2014 [facility] [place] [facility] [address] [id number] [place] [address]- 8690 11 Aug, 2014 [facility] [place] [facility] [address] [id number] [place] [address]- 6588 11 Aug, 2014 [facility] [place] [facility] [address] [id number] [place] [address]- 3615 04 Aug, 2014 [facility] [place] [facility] [address] [id number] [place] [address]- 5948 04 Aug, 2014 [facility] [place] [facility] [address] [id number] [place] [address]- 8210 Aug, [facility] [place] [facility] [address] [id number] [place] [address]- 6034 Aug, [facility] [place] [facility] [address] [id number] [place] [address]- 2008 Jul, 2014 [facility] [place] [facility] [address] [id number] [place] [address]- 6166 23 Jul, 2014 [facility] [place] [facility] [address] [id number] [place] [address]- 9245 13 Jul, 2014 [facility] [place] [facility] [address] [id number] [place] [address]- 9138 Jul, 2014 [facility] [place] [facility] [address] [id number] [place] [address]- 2166 Jul, [facility] [place] [facility] [address] [id number] [place] [address]- 0429 Jul, [facility] [place] [facility] [address] [id number] [place] [address]- 4050 Jun, [facility] [place] [facility] [address] [id number] [place] [address]- 2290 Jun, [facility] [place] [facility] [address] [id number] [place] [address]- 8702 Jun, [facility] [place] [facility] [address] [facility] [id number] [place] [address]- 4694 Jun, [facility] [place] [facility] [address] [id number] [address]- 4055 Jun, [facility] [place] [facility] [address] [id number] [place] [address]- 5613 Jun, [facility] [place] [facility] [address] [facility] [id number] [place] [address]- 9301 Jun, [facility] [place] [facility] [address] [id number] [address]- 2572 Jun, [facility] [place] [facility] [address] [id number] [place] [address]- 8299 May, [facility] [place] [facility] [address] [id number] [place] [address]- 8311 May, [facility] [place] [facility] [address] [id number] [place] [address]- 5868 May, [facility] [place] [facility] [address] [facility] [id number] [place] [address]- 2205 May, [facility] [place] [facility] [address] [id number] [place] [address]- 1624 15 May, 2014 [facility] [place] [facility] [address] [id number] [place] [address]- 4860 May, [facility] [place] [facility] [address] [id number] [place] [address]- 84[address] May, [facility] [place] [facility] [address] [id number] [place] [address] May, [facility] [place] [facility] [address] [id number] [place] [address] May, [facility] [place] [facility] [address] [id number] [place] [address] May, [facility] [place] [facility] [address] [id number] [place] [address] May, [facility] [place] [facility] [address] [id number] [place] [address] May, [facility] [place] [facility] [address] [id number] [place] [address] Apr, [facility] [place] [facility] [address] [id number] [place] [address] Apr, [facility] [place] [facility] [address] [id number] [place] [address] Apr, [facility] [place] [facility] [address] [id number] [place] [address] Apr, [facility] [place] [facility] [address] [id number] [place] [address] Apr, [facility] [place] [facility] [address] [id number] [place] [address] Apr, [facility] [place] [facility] [address] [id number] [place] [address]- [address] Apr, [facility] [place] [facility] [address] [id number] [place] [address] Apr, [facility] [place] [facility] [address] [id number] [place] [address] Apr, [facility] [place] [facility] [address] [id number] [place] [address]- [address] Apr, [facility] [place] [facility] [address] [id number] [place] [address]- 2020 Apr, [facility] [place] [facility] [address] [id number] [place] [address] Apr, [facility] [place] [facility] [address] [id number] [place] [address] Mar, [facility] [place] [facility] [address] [id number] [place] [address]- [address] Mar, [facility] [place] [facility] [address] [id number] [place] [address]- [address] Mar, [facility] [place] [facility] [address] [id number] [place] [address] Mar, [facility] [place] [facility] [address] [id number] [place] [address]- [address] Feb, [facility] [place] [facility] [address] [id number] [place] [address]- [address] Feb, [facility] [place] [facility] [address] [id number] [place] [address] Feb, [facility] [place] [facility] [address] [id number] [place] [address]- [address] 05 Feb, 2013 [facility] [place] [facility] [address] [id number] [place] [address]- [address] 05 Feb, 2014 [facility] [place] [facility] [address] [id number] [place] [address] Feb, [facility] [place] [facility] [address] [id number] [place] [address] Jan, [facility] [place] [facility] [address] [id number] [place] [address] Jan, [facility] [place] [facility] [address] [id number] [place] [address] Jan, [facility] [place] [facility] [address] [id number] [place] [address] Jan, [facility] [place] [facility] [address] [id number] [place] [address] 5813 Jan, [facility] [place] [facility] [address] [id number] [place] [address]- 2111 Jan, [facility] [place] [facility] [address] [id number] [place] [address]- 8794 Jan, [facility] [place] [facility] [address] [id number] [place] [address]- 4042 Jan, [facility] [place] [facility] [address] [id number] [place] [address]- 0522 Jan, [facility] [place] [facility] [address] [id number] [place] [address]- 8385 Jan, [facility] [place] [facility] [address] [id number] [place] [address]- 5667 Jan, [facility] [place] [facility] [address] [id number] [place] [address]- 5232 Jan, [facility] [place] [facility] [address] [id number] [place] [address]- 2232 Jan, [facility] [place] [facility] [address] [id number] [place] [address]- 8164 Jan, [facility] [place] [facility] [address] [id number] [place] [address]- 3185 Dec, [facility] [place] [facility] [address] [id number] [place] [address]- 9989 Dec, [facility] [place] [facility] [address] [id number] [place] [address]- 1436 Dec, [facility] [place] [facility] [address] [id number] [place] [address]- 7193 Dec, [facility] [address] [id number] [place] [address]- 8757 Nov, [facility] [place] [facility] [address] [id number] [place] [address]- 9174 Nov, [facility] [address] [id number] [place] [address]- 6393 Nov, [facility] [place] [facility] [address] [id number] [place] [address]- 9359 Nov, [facility] [address] [id number] [place] [address]- 8766 Nov, [facility] [address] [id number] [place] [address]- 5378 October, [facility] [place] [facility] [address] [id number] [place] [address]- 0688 October, [facility] [address] [id number] [place] [address]- 6289 October, [facility] [place] [facility] [address] [id number] [place] [address]- 7571 October, [facility] [address] [id number] [place] [address]- 4679 October, [facility] [place] [facility] [address] [id number] [place] [address]- 6579 October, [facility] [place] [facility] [address] [id number] [place] [address]- 0541 October, [facility] [place] [facility] [address] [id number] [place] [address]- 3790 October, [facility] [place] [facility] [address] [id number] [place] [address]- 6219 October, [facility] [place] [facility] [address] [id number] [place] [address]- 0169 October, [facility] [address] [id number] [place] [address]- 8924 October, [facility] [place] [facility] [address] [id number] [place] [address]- 1819 October, [facility] [place] [facility] [address] [id number] [place] [address]- 2339 October, [facility] [place] [facility] [address] [id number] [place] [address]- 4289 October, [facility] [place] [facility] [address] [id number] [place] [address]- 0479 Sep, [facility] [place] [facility] [address] [id number] [place] [address]- 7172 Sep, [facility] [place] [facility] [address] [id number] [place] [address]- 2940 Sep, [facility] [place] [facility] [address] [id number] [place] [address]- 5068 Sep, [facility] [place] [facility] [address] [id number] [place] [address]- 4167 Sep, [facility] [place] [facility] [address] [id number] [place] [address]- 8965 Sep, [facility] [place] [facility] [address] [id number] [place] [address]- 8040 Sep, [facility] [place] [facility] [address] [id number] [place] [address]- 4682 Sep, [facility] [place] [facility] [address] [id number] [place] [address]- 1564 Sep, [facility] [place] [facility] [address] [id number] [place] [address]- 4732 Sep, [facility] [place] [facility] [address] [id number] [place] [address]- 3829 Sep, [facility] [place] [facility] [address] [id number] [place] [address]- 3742 Sep, [facility] [place] [facility] [address] [id number] [place] [address]- 7144 Sep, [facility] [place] [facility] [address] [id number] [place] [address]- 3028 Sep, [facility] [place] [facility] [address] [id number] [place] [address]- 6072 Sep, [facility] [place] [facility] [address] [id number] [place] [address]- 7351 Aug, [facility] [place] [facility] [address] [id number] [place] [address]- 1461 Aug, [facility] [place] [facility] [address] [id number] [place] [address]- 3216 Aug, [facility] [place] [facility] [address] [id number] [place] [address]- 2990 Aug, [facility] [place] [facility] [address] [id number] [place] [address]- 3490 Jul, [facility] [place] [facility] [address] [id number] [place] [address]- 7625 Jul, [facility] [place] [facility] [address] [id number] [place] [address]- 9134 Jul, [facility] [place] [facility] [address] [facility] [id number] [place] [address]- 1056 Jul, [facility] [place] [facility] [address] [id number] [place] [address]- 8549 Jun, [facility] [place] [facility] [address] [id number] [place] [address]- 2267 Jun, [facility] [place] [facility] [address] [id number] [place] [address]- 3298 Jun, [facility] [place] [facility] [address] [id number] [place] [address]- 6087 Jun, [facility] [place] [facility] [address] [id number] [place] [address]- 2884 10 Jun, 2013 [facility] [address] [id number] [place] [address]- 1878 10 Jun, 2013 [facility] [place] [facility] [address] [id number] [place] [address]- 9644 08 Jun, 2013 [facility] [place] [facility] [address] [id number] [place] [address]- 9403 Jun, [facility] [address] [id number] [place] [address]- 3507 20 May, 2013 [facility] [place] [facility] [address] [id number] [place] [address]- 4041 20 May, 2013 [facility] [address] [id number] [place] [address]653 18 May, 2013 [facility] [address] [id number] [place] [address]- 6527 18 May, 2013 [facility] [address] [id number] [place] [address]- 4834 17 May, 2013 [facility] [place] [facility] [address] [id number] [place] [id number] 17 May, 2013 [facility] [place] [facility] [address] [id number] [place] [address]106 17 May, 2013 [facility] [place] [facility] [address] [id number] [place] [address]- 4427 17 May, 2013 [facility] [place] [facility] [address] [id number] [place] [address]- 0787 16 May, 2013 [facility] [place] [facility] [address] [id number] [place] [address]- 4081 16 May, 2013 [facility] [place] [facility] [address] [id number] [place] [address]- 1341 14 May, 2013 [facility] [place] [facility] [address] [id number] [place] [address]- 8463 14 May, 2013 [facility] [address] [id number] [place] [address]- 8451 13 May, 2013 [facility] [place] [facility] [address] [id number] [place] [address]- 3724 13 May, 2013 [facility] [place] [facility] [address] [facility] [id number] [place] 1577 12 May, 2013 [facility] [place] [facility] [address] [id number] [place] [address]- 9157 May, [facility] [place] [facility] [address] [id number] [place] [address]- 7535 May, [facility] [place] [facility] [address] [id number] [place] [address]- 4556 May, [facility] [place] [facility] [address] [id number] [place] [address]- 3800 Apr, [facility] [place] [facility] [address] [id number] [address]- 2938 Apr, [facility] [place] [facility] [address] [id number] [place] [address]- 2457 Apr, [facility] [place] [facility] [address] [id number] [place] [address]- 1686 Apr, [facility] [place] [facility] [address] [id number] [place] [address]- 4131 Aug, [facility] [place] [facility] [address] [id number] [place] [address]- 9536 Aug, [facility] [place] [facility] [address] [id number] [place] [address]- 5736 06 Aug, 2012 [facility] [place] [facility] [address] [facility] [id number] [place] [address]- 4262 05 Aug, 2012 [facility] [place] [facility] [address] [facility] [id number] [place] [address]- 0778 Jul, [facility] [place] [facility] [address] [id number] [place] [address]- 2602 Jun, [facility] [address] [id number] [place] [address]- 4895 Jun, [facility] [address] [id number] [place] [address]- 5995 16 Jun, 2012 [facility] [address] [id number] [place] [address]- 9105 Jun, [facility] [address] [id number] [place] [address]- 1185 May, [facility] [address] [id number] [place] [address]- 4983 May, [facility] [address] [id number] [place] [address]- 9799 May, [facility] [address] [id number] [place] [address]- 1919 May, [facility] [address] [id number] [place] [address]- 7287 May, [facility] [address] [id number] [place] [address]- 5320 May, [facility] [address] [id number] [place] [address]- 5794 May, [facility] [address] [id number] [place] [address]- 7598 Apr, [facility] [address] [id number] [place] [address]- 1453 Apr, [facility] [address] [id number] [place] [address]- 8275 Apr, [facility] [address] [id number] [place] [address]- 5346 Apr, [facility] [address] [id number] [place] [address]- 4698 Apr, [facility] [place] [facility] [address] [id number] [place] [address]- 7584 Apr, [facility] [place] [facility] [address] [id number] [place] 7701 Apr, [facility] [place] [facility] [address] [id number] [place] 3203 Mar, [facility] [place] [facility] [address] [id number] [place] [address]- 8180 Mar, [facility] [place] [facility] [address] [id number] [place]326 Mar, [facility] [place] [facility] [address] [id number] [place] [address]- 8192 Mar, [facility] [place] [facility] [address] [id number] [place] [address]- 5713 Mar, [facility] [place] [facility] [address] [id number] [place] [address]- 2178 Mar, [facility] [place] [facility] [address] [id number] [place] [address]- 5890 Mar, [facility] [place] [facility] [address] [id number] [place] [address]- 2037 Mar, [facility] [place] [facility] [address] [facility] [id number] [place] [address]- 3043 Mar, [facility] [place] [facility] [address] [id number] [place] [address]- 8434 Mar, [facility] [place] [facility] [address] [id number] [place] [address]- 2394 Mar, [facility] [place] [facility] [address] [id number] [place] [address]- 6802 Mar, [facility] [place] [facility] [address] [facility] [id number] [place] [address]- 9176 06 Feb, 2012 [facility] [place] [facility] [address] [id number] [place] [address]- 9450 Jan, [facility] [place] [facility] [address] [id number] [place] [address]- 6606 Jan, [facility] [place] [facility] [address] [id number] [place] [address]- 6090 Jan, [facility] [place] [facility] [address] [id number] [place] [address]- 2739 Jan, [facility] [place] [facility] [address] [id number] [place] [address]- 2211 Jan, [facility] [place] [facility] [address] [id number] [place] [address]- 0515 Dec, [facility] [place] [facility] [address] [id number] [place] [address]- 2534 Dec, [facility] [place] [facility] [address] [id number] [place] [address]- 4278 Nov, [facility] [place] [facility] [address] [id number] [place] [address]- 1934 Nov, [facility] [place] [facility] [address] [id number] [place] [address]- 9246 Nov, [facility] [place] [facility] [address] [id number] [place] [address]- 4045 October, [facility] [place] [facility] [address] [id number] [place] [address]- 3888 October, [facility] [place] [facility] [address] [id number] [place] [address]- 6948 October, [facility] [place] [facility] [address] [id number] [place] [address]- 1004 October, [facility] [place] [facility] [address] [id number] [place] [address]- 4550 October, [facility] [place] [facility] [address] [id number] [place] [address]- 1852 October, [facility] [place] [facility] [address] [id number] [place] [address]- 4489 October, [facility] [address] [id number] [place] [address]- 9885 Sep, [facility] [place] [facility] [address] [id number] [place] [address]- 0275 Sep, [facility] [address] [id number] [place] [address]- 6435 Sep, [facility] [address] [id number] [place] [address]- 4054 Sep, [facility] [address] [id number] [place] [address]- 5502 24 Sep, 2011 [facility] [address] [id number] [place] [address]- 3466 Sep, [facility] [address] [id number] [place] [address]- 1410 17 Sep, 2011 [facility] [address] [id number] [place] [address]- 1000 16 Sep, 2011 [facility] [address] [id number] [place] [address]- 0205 16 Sep, 2011 [facility] [address] [id number] [place] [address]- 6825 14 Sep, 2011 [facility] [place] [facility] [address] [id number] [place] [address]- 0524 13 Sep, 2011 [facility] [address] [id number] [place] [address]- 6199 10 Sep, 2011 [facility] [place] [facility] [address] [id number] [place] [address]- 0488 09 Sep, 2011 [facility] [place] [facility] [address] [id number] [place] [address]- 9485 27 Aug, 2011 [facility] [place] [facility] [address] [id number] [place] [address]- 8322 Aug, [facility] [place] [facility] [address] [id number] [place] [address]- 1064 08 Aug, 2011 [facility] [place] [facility] [address] [id number] [place] [address]- 0516 06 Aug, 2011 [facility] [place] [facility] [address] [id number] [place] [address]- 9725 28 Jul, 2011 [facility] [place] [facility] [address] [id number] [place] [address]- 3487 22 Jul, 2011 [facility] [place] [facility] [address] [id number] [place] [address]- 0162 16 Jul, 2011 [facility] [place] [facility] [address] [id number] [place] [address]- 4772 15 Jul, 2011 [facility] [place] [facility] [address] [id number] [place] [address]- 7200 14 Jul, 2011 [facility] [place] [facility] [address] [id number] [place] [address]- 6547 10 Jul, 2011 [facility] [place] [facility] [address] [id number] [place] [address]- 3229 Jun, [facility] [place] [facility] [address] [id number] [place] [address]- 7771 Jun, [facility] [place] [facility] [address] [id number] [place] [address]- 2277 Jun, [facility] [place] [facility] [address] [id number] [place] [address]- 8887 Jun, [facility] [place] [facility] [address] [id number] [place] [address]- 0588 Jun, [facility] [place] [facility] [address] [id number] [place] [address]- 2310 May, [facility] [place] [facility] [address] [id number] [place] [address]- 2062 May, [facility] [place] [facility] [address] [id number] [place] [address]- 8873 14 May, 2011 [facility] [place] [facility] [address] [id number] [place] [address]- 2425 14 May, 2011 [facility] [place] [facility] [address] [id number] [place] [address]- 0891 12 May, 2011 [facility] [place] [facility] [address] [id number] [place] [address]- 2214 07 May, 2011 [facility] [place] [facility] [address] [id number] [place] [address]- 7374 05 May, 2011 [facility] [place] [facility] [address] [id number] [place] [address]- 1955 15 Apr, 2011 [facility] [place] [facility] [address] [id number] [place] [address]- 0494 15 Apr, 2011 [facility] [place] [facility] [address] [id number] [place] [address]- 9707 Apr, [facility] [place] [facility] [address] [id number] [place] [address]- 1016 Apr, [facility] [place] [facility] [address] [id number] [place] [address]- 4587 Apr, [facility] [place] [facility] [address] [facility] [id number] [place] [address]- 4747 Apr, [facility] [place] [facility] [address] [id number] [place] [address] Mar, [facility] [place] [facility] [address] [id number] [place] [address] Mar, [facility] [place] [facility] [address] [id number] [place] [address] Mar, [facility] [place] [facility] [address] [id number] [place] [address] Mar, [facility] [place] [facility] [address] [id number] [place] [address] Jan, [facility] [address] [id number] [place] [address] Dec, [facility] [place] [facility] [address] [id number] [place] [address] Dec, [facility] [place] [facility] [address] [id number] [place] [address] October, [facility] [place] [facility] [address] [id number] [place] [address] Sep, [facility] [address] [id number] [place] [address] Sep, [facility] [place] [facility] [address] [id number] [place] [address] 17 Jul, 2010 [facility] [place] [facility] [address] [id number] [place] [address] 16 Jul, 2010 [facility] [address] [id number] [place] [address] May, [facility] [place] [facility] [address] [id number] [place] [address] May, [facility] [place] [facility] [address] [id number] [place] [address] May, [facility] [place] [facility] [address] [id number] [place] [address] May, [facility] [place] [facility] [address] [id number] [place] [address] Apr, [facility] [place] [facility] [address] [id number] [place] [address] Apr, [facility] [place] [facility] [address] [id number] [place] [address] Apr, [facility] [place] [facility] [address] [id number] [place] [address] Apr, [facility] [place] [facility] [address] [id number] [place] [address] Apr, [facility] [place] [facility] [address] [id number] [place] [address] 21 Mar, 2010 [facility] [place] [facility] [address] [id number] [place] [address] 14 Mar, 2010 [facility] [place] [facility] [address] [id number] [place] [address] 13 Mar, 2010 [facility] [place] [facility] [address] [id number] [place] [address] 12 Mar, 2010 [facility] [place] [facility] [address] [id number] [place] [address] Jan, [facility] [place] [facility] [address] [id number] [place] [address] 15 Dec, 2009 [facility] [place] [facility] [address] [facility] [id number] [place] [address] 10 Sep, 2009 [facility] [place] [facility] [address] [id number] [place] [address] May, [facility] [place] [facility] [address] [id number] [place] [address] May, [facility] [place] [facility] [address] [facility] [id number] [place] [address] May, [facility] [place] [facility] [address] [facility] [id number] [place] [address] Apr, [facility] [place] [facility] [address] [id number] [place] [address] Apr, [facility] [place] [facility] [address] [id number] [place] [address] Apr, [facility] [place] [facility] [address] [facility] [id number] [place] [address] Apr, [facility] [place] [facility] [address] [facility] [id number] [place] [address] Apr, [facility] [place] [facility] [address] [facility] [id number] [place] [address] Mar, [facility] [address] [facility] [id number] [place] [address] Mar, [facility] [address] [facility] [id number] [place] [address] Jul, IMMUNIZATIONS No Known Immunizations SOCIAL HISTORY Never Assessed REASON FOR VISIT [facility] Follow up / patient states she has more energy but funny taste on her mouth , still vomitting but is better , pain on left side of abdomen -- america velásquez PLAN OF CARE Activity Details Follow Up 4 Weeks Reason:Diarrhea VITAL SIGNS Height 62 in 2018-01-06 Weight 265.0 lbs 2018-01-06 Temperature 97.8 degrees Fahrenheit 2018-01-06 Heart Rate 80 bpm 2018-01-06 Respiratory Rate 18 2018-01-06 BMI 48.46 kg/m2 2018-01-06 Blood pressure systolic 122 mmHg 2018-01-06 Blood pressure diastolic 70 mmHg 2018-01-06 MEDICATIONS Medication Instructions Dosage Frequency Start Date End Date Duration Status Ropinirole HCl 4 MG Orally Once a day 1 tablet before bedtime 24h 30 days Active Ondansetron HCl 8 mg 1 tablet by Oral route every 8 hours PRN Jul, Active Vitamin D 51148 UNIT Orally per day 1 capsule Active Prozac 40 mg Orally Once a day for depression 1 capsules Active Viokace 33948 UNIT Not-Taking Hydrocodone-Acetaminophen 5-325 MG Orally every 6 hrs 1 tablet as needed 6h Active Estradiol 0.5 MG Orally Once a day 2 tablet by Oral route 1 time per day 24h Apr, Active RESULTS No Results PROCEDURES Procedure Date Ordered Result Body Site STREP A ASSAY W/OPTIC January 06, 2018 LAB NOT BILLED BY [facility] January 06, 2018 [facility] VISIT ESTABLISHED PATIENT January 06, 2018 NIXON GAINES* January 06, 2018 INSTRUCTIONS MEDICATIONS ADMINISTERED No Known Medications MEDICAL [...] Surgical History nephrectomy 03/2017 Hospitalization History Cellulitis-[facility] 12/20/15 Hospitalization History [facility]- Abd pain 03/07/2017 Hospitalization [facility]- Abd pain 03/14/2017 Hospitalization [facility]- No bowel movement, rash 04/13/2017 Hospitalization History [facility]- Abd pain r/t kidney surgery on 04/17/2017 Hospitalization [facility]- Abd pain r/t kidney surgery on 04/18/2017 Hospitalization History [facility]- Lower abd pain 04/30/2017 Hospitalization [facility]- Cannot urinate 05/30/2017 Hospitalization [facility]- Pancreatitis Sx 06/29/2017 Hospitalization [facility]- Stomach pain 07/22/2017 Hospitalization [facility]- Left side pain 08/12/2017 [facility]- Incision site infection 08/30/2017 Hospitalization History [facility]- Post Op Seroma/Hematoma Left Abdomen. Discharged 09/04/17- Dr Daniel 09/02/2017 Hospitalization History [facility]- Right shoulder and back pain 2017 Hospitalization History [facility]- Shoulder/Back pain 11/11/2017 Hospitalization [facility]- Right shoulder blade pain 12/04/2017 Hospitalization History [facility]- C-Diff 12/13/2017 Hospitalization History C diff et MRSA 12/27/2017
--- OUTSIDE RECORDS SUMMARY | 2018-02-24 14:16 | XMS REPORT ---
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 Name Role Phone CARMEN GIBBS Unavailable PROBLEMS Type Condition ICD9-CM Code QHQ99-EH Code Onset Dates Condition Status SNOMED Code Problem Polydipsia R63.1 Active 82956421 Problem Trichotillomania F63.3 Active 43167668 Problem Atelectasis J98.11 Active 20570490 Problem Intestinal malabsorption, unspecified K90.9 Active 66885718 Problem Chronic fatigue R53.82 Active 67886157 Problem Generalized social phobia F40.11 Active 97537814 Problem Restless leg syndrome G25.81 Active 04181719 Problem Moderate episode of recurrent major depressive disorder F33.1 Active 498940490 Problem Chronic post-traumatic stress disorder (PTSD) F43.12 Active 949179910 Problem History of renal cell carcinoma Z85.528 Active 165295841 Problem Chronic tension-type headache, intractable G44.221 Active 297193578 Problem Nodule of left lung R91.1 Active 920590260 Problem Hirsuties L68.0 Active 626146765 Problem FH: polycystic ovary Z84.2 Active 954029109 Problem Morbid (severe) obesity due to excess calories E66.01 Active 604565157 Problem Chronic pancreatitis K86.1 Active 346347813 Problem Hyperlipidemia, mixed E78.2 Active 060684358 Problem Asthma J45.909 Active [id number] ALLERGIES No Information ENCOUNTERS Encounter Location Date Diagnosis [facility] [place] [address] [facility] [id number] [address] Mar, [facility] [place] [id number] [address] Feb, [facility] [place] [id number] [address] Jan, Acute pain of right knee M25.561 ; Right upper quadrant abdominal pain R10.11 and BMI 45.0-49.9, adult Z68.42 [facility] [place] [id number] [place] [address] 00173- 0201 Jan, [facility] [place] [id number] [place] [address] 28814- 3585 Jan, [facility] [place] [id number] [place] [address] 43501- 5543 Dec, [facility] [place] [id number] [place] [address] 65015- 0695 Dec, Intestinal malabsorption, unspecified K90.9 and Diarrhea, unspecified R19.7 [place] [id number] [place] [address] 28979- 4051 Dec, [facility] [place] [id number] [place] [address] 35091- 0815 Dec, Strep throat J02.0 ; Intestinal malabsorption, unspecified K90.9 ; Diarrhea, unspecified R19.7 ; Postoperative seroma involving digestive system after non-digestive system procedure K91.873 ; Hyperlipidemia, mixed E78.2 and BMI 45.0-49.9, adult Z68.42 [facility] [place] [id number] [place] [address] 89637- 1309 Dec, [facility] [place] [id number] [place] [address] 56618- 6515 Dec, Nausea R11.0 [facility] [place] [id number] [place] [address] 35929- 7620 Dec, [facility] [id number] [place] [address] 30896 -5855 Dec, Sore throat J02.9 ; Strep throat J02.0 and BMI 45.0-49.9, adult Z68.42 [facility] [place] [id number] [place] [address] 39589- 8755 Dec, [facility] [place] [id number] [place] [address] 9049 Dec, [facility] [place] [id number] [address] 2303 Dec, [facility] [place] [id number] [place] [address]- 6151 Dec, [facility] [place] [id number], [place] [address] 6328 Dec, [facility] [place] [id number] [place] [address]- 0509 Dec, [facility] [place] [id number], [place] [address] 5236 Dec, [facility] [place] [address] [address] 1645 Dec, [facility] [place] [address] [address] 5008 Dec, Clostridium difficile colitis A04.72 ; Intractable vomiting with nausea, unspecified vomiting type R11.2 and BMI 45.0-49.9, adult Z68.42 [facility] [place] [id number], [place] [address] 4017 Dec, [facility] [place] [id number], [place] [address]- 4405 Nov, [facility] [place] [id number], [place] [address]- 7855 Nov, [facility] [place] [id number] [address]- 3765 Nov, [facility] [place] [id number], [place] [address]- 8999 Nov, [facility] [id number], [place] [address] Nov, [place] [id number], [place] [address]- 6841 Nov, Hyperlipidemia, mixed E78.2 [facility] [id number] [place] [address] 23551 -7016 Nov, Acute suppurative otitis media of right ear without spontaneous rupture of tympanic membrane, recurrence not specified H66.001 and BMI 45.0-49.9, adult Z68.42 [place] [id number] [place] [address] 73780- 1611 Nov, Hyperlipidemia, mixed E78.2 [place] [id number] [place] [address] 38027- 7744 Nov, [place] [id number] [place] [address] 09789- 7834 Nov, [address] 39619- 1770 Nov, Nodule of left lung R91.1 [place] [id number] [place] [address] 24976- 6588 Nov, Medicare annual wellness visit, initial Z00.00 [...] adult Z68.42 and Encounter for immunization Z23 [place] [id number] [place] [address] 09052- 3113 October, [place] [id number] [place] [address] 53063- 7454 October, Nodule of left lung R91.1 [place] [id number] [place] [address] 69945- 3314 October, Nodule of left lung R91.1 [place] [id number] [place] [address] 64669- 2074 October, Recurrent major depressive disorder, in partial remission F33.41 ; Restless leg syndrome G25.81 ; Generalized social phobia F40.11 ; Chronic post-traumatic stress disorder (PTSD) F43.12 ; BMI 45.0-49.9, adult Z68.42 and Trichotillomania F63.3 [place] [id number] [place] [address] 16746- 8272 October, [place] [id number] [place] [address] 52438- 9746 Sep, Chronic fatigue R53.82 and BMI 45.0-49.9, adult Z68.42 [place] [id number] [place] [address] 41495- 3676 Aug, [place] [id number] [place] [address] 58432- 6785 Jul, Restless leg syndrome G25.81 and B12 deficiency E53.8 [address] [id number] [place] [address] 24662- 6509 Jul, [place] [id number] [place] [address] 47926- 0426 Jul, [place] [id number] [place] [address] 85284- 3565 Jun, [place] [id number] [place] [address] 64185- 6700 Jun, Fatigue, unspecified type R53.83 ; History of renal cell carcinoma Z85.528 ; Chronic pancreatitis K86.1 ; Restless leg syndrome G25.81 ; Dark urine R82.99 and BMI 45.0-49.9, adult Z68.42 [place] [id number] [place] [address] 39176- 8745 Jun, [facility] [place] [id number] [address]- 5016 Jun, [facility] [place] [address], [place] [address]- 9166 Jun, [facility] [place] [id number], [place] [address]- 7290 Jun, [facility] [place] [address] [address] May, Chronic post-traumatic stress disorder (PTSD) F43.12 ; Moderate episode of recurrent major depressive disorder F33.1 ; Trichotillomania F63.3 and Generalized social phobia F40.11 [facility] [place] [address] [address]- 2029 May, [facility] [place] [address], [place] [address]- 8198 May, Chronic post-traumatic stress disorder (PTSD) F43.12 ; Moderate episode of recurrent major depressive disorder F33.1 ; Trichotillomania F63.3 and Generalized social phobia F40.11 [facility] [place] [id number] [address]- 4007 May, Hyperlipidemia, mixed E78.2 ; Morbid (severe) obesity due to excess calories E66.01 ; Chronic post-traumatic stress disorder (PTSD) F43.12 ; Moderate episode of recurrent major depressive disorder F33.1 ; Trichotillomania F63.3 and Generalized social phobia F40.11 [facility] [place] [id number], [place] [address]- 4235 Apr, [facility] [place] [address], [place] [address]- 0741 Apr, Hyperlipidemia, mixed E78.2 ; Morbid (severe) obesity due to excess calories E66.01 ; Chronic post-traumatic stress disorder (PTSD) F43.12 ; Moderate episode of recurrent major depressive disorder F33.1 ; Trichotillomania F63.3 and Generalized social phobia F40.11 [facility] [place] [id number] [place] [address] 36067- 0391 Apr, Trichotillomania F63.3 ; Generalized social phobia F40.11 ; Chronic post-traumatic stress disorder (PTSD) F43.12 and Moderate episode of recurrent major depressive disorder F33.1 [place] [id number] [place] [address] 25964- 5151 Apr, [facility] [place] [id number] [place] [address] 18446- 4959 Apr, [place] [id number] [place] [address] 95692- 9087 Mar, Moderate episode of recurrent major depressive disorder F33.1 ; Trichotillomania F63.3 ; Chronic post-traumatic stress disorder (PTSD) F43.12 ; Generalized social phobia F40.11 and Restless leg syndrome G25.81 [place] [id number] [place] [address] 92062- 9076 Mar, [place] [address] 28129- 3205 Mar, [place] [id number] [place] [address] 77519- 3427 Feb, Left kidney mass N28.89 [place] [id number] [place] [address] 10640- 3774 Jan, [place] [id number] [place] [address] 98033- 0747 Dec, Polydipsia R63.1 ; Chronic pancreatitis K86.1 and Fatigue, unspecified type R53.83 [facility] [place] [id number] [place] [address] 85747- 8905 Nov, [place] [id number] [place] [address] 09417- 9569 Nov, [place] [id number] [place] [address] 31604- 0310 Nov, Headache around the eyes R51 [facility] [place] [id number] [place] [address] 81891- 0395 Nov, [facility] [place] [id number] [place] [address] 31217- 2875 October, STD exposure Z20.2 [facility] [place] [id number] [place] [address] 46749- 2433 October, STD exposure Z20.2 [facility] [place] [id number] [place] [address] 591183- 4451 October, Chronic post-traumatic stress disorder (PTSD) F43.12 ; Generalized social phobia F40.11 ; Trichotillomania F63.3 and Restless leg syndrome G25.81 [place] [id number] [place] [address] 93739- 0239 October, [facility] [place] [id number] [place] [address] 33050- 1848 Sep, [facility] [place] [id number] [place] [address] 23611- 2465 Aug, [facility] [place] [id number] [place] [address] 19807- 7782 Aug, [place] [id number] [place] [address] 77850- 1414 Aug, Neck mass R22.1 [place] [id number] [place] [address] 18202- 8327 Aug, Atelectasis J98.11 [place] [id number] [place] [address] 76807- 1213 28 Jul, 2016 Hyperlipidemia, mixed E78.2 ; Atypical pneumonia J18.9 and Neck mass R22.1 [place] [id number] [place] [address] 46269- 2070 15 Jul, 2016 [address]tysis R04.[address] [place] [address] 44955- 0014 08 Jul, 2016 Acute non-recurrent pansinusitis J01.40 ; Hemoptysis R04.2 ; Polydipsia R63.1 and Malaise R53.81 [facility] [id number] [place] [address] 51525 -4472 May, Other viral agents as the cause of diseases classified elsewhere B97.89 and Acute upper respiratory infection, unspecified J06.9 [facility] [id number] [place] [address] 55128 -5320 Mar, Nausea R11.0 [facility] [id number] [place] [address] 86098 -0363 Dec, Hives L50.9 [place] [id number] [place] [address] 59238- 2008 Dec, [facility] [id number] [place] [address] 04065 -4155 Dec, Cutaneous abscess of limb, unspecified L02.419 ; Cellulitis of unspecified part of limb L03.119 ; Encounter for incision and drainage procedure Z01.89 and Encounter for recheck of abscess following incision and drainage Z09 [facility] [address] [place] [address] 68416 -7996 Dec, Abscess of leg, right L02.415 [place] [id number] [place] [address] 55045- 2022 08 Dec, 2015 Cellulitis of unspecified part of limb L03.119 and Cutaneous abscess of limb, unspecified L02.419 [place] [address] [place] [address] 99463- 3061 Dec, [place] [address] [place] [address] 13883- 0382 Dec, [facility] [address] [place] [address] 39105 -7337 Aug, [facility] [place] [id number] [place] [address] 25304- 3166 Aug, [facility] [id number] [place] [address] 15211 -8526 04 Jul, 2015 Pain in unspecified wrist M25.539 and Back pain, thoracic M54.6 [facility] [id number] [place] [address] 34537 -3188 13 Jun, 2015 Strain of right wrist, initial encounter S66.911A [place] [address] 27855- 3875 Jun, Chronic pancreatitis, unspecified pancreatitis type K86.1 ; Hirsuties L68.0 ; Morbid (severe) obesity due to excess calories E66.01 ; Chronic pancreatitis K86.1 and Asthma J45.909 [place] [id number] [place] [address] 63235- 7646 May, [place] [id number] [place] [address] 99370- 0171 May, Hyperlipidemia, mixed E78.2 and Muscle spasm of back M62.830 [place] [id number] [place] [address] 98682- 9634 Apr, [place] [id number] [place] [address] 86635- 9871 Apr, Torticollis M43.6 [place] [id number] [place] [address] 82236- 8782 Apr, Right-sided thoracic back pain M54.6 [place] [id number] [place] [address] 43532- 9211 Mar, Rash R21 [place] [id number] [place] [address] 17990- 1048 Mar, [place] [address] [address]- 7082 Jan, [facility] [place] [id number] [place] [address] 852052- 9684 Dec, [facility] [place] [id number] 1566 Dec, Urinary frequency 788.41 and Nocturia more than twice per night 788.43 [facility] [place] [id number] [place] [address] 71294- 0884 Nov, [facility] [place] [id number] [place] [address] 076670- 5474 Nov, [facility] [place] [id number] [place] [address] 31246- 6503 Nov, Abdominal pain 789.00 [facility] [place] [id number] [place] [address] 48954- 7773 October, TDAP DX V06.1 [facility] [place] [id number] [place] [address] 74901- 0251 October, [facility] [place] [id number] [place] [address] 017880- 4678 October, Disturbance of skin sensation 782.0 ; Wrist pain, right 719.43 ; Hyperlipidemia 272.4 and Skin lesion of face 709.9 [facility] [place] [address], [place] [address]- 2697 Sep, [facility] [place] [address], [place] [address]- 9051 Sep, [facility] [place] [id number] [place] [address] 522481- 8929 Aug, [facility] [place] [address], [place] [address]- 5315 Aug, [facility] [place] [id number] [place] [address] 28466692- 0919 23 Aug, 2014 [facility] [place] [facility] [address] [id number] [place] [address]- 6957 23 Aug, 2014 [facility] [place] [facility] [address] [id number] [place] [address]- 2592 16 Aug, 2014 [facility] [place] [facility] [address] [id number] [place] [address]- 2209 16 Aug, 2014 [facility] [place] [facility] [address] [id number] [place] [address]- 3489 14 Aug, 2014 [facility] [place] [facility] [address] [id number] [place] [address]- 6587 14 Aug, 2014 [facility] [place] [facility] [address] [id number] [place] [address]- 6437 Aug, [facility] [place] [facility] [address] [id number] [place] [address]- 7662 Aug, [facility] [place] [facility] [address] [id number] [place] [address]- 4182 04 Aug, 2014 [facility] [place] [facility] [address] [id number] [place] [address]- 6559 Aug, [facility] [place] [facility] [address] [id number] [place] [address]- 9686 Aug, [facility] [place] [facility] [address] [id number] [place] [address]- 3812 Aug, [facility] [place] [facility] [address] [id number] [address]- 3744 Jul, 2014 [facility] [place] [facility] [address] [id number] [place] [address]- 4467 Jul, 2014 [facility] [place] [facility] [address] [id number] [place] [address] Jul, 2014 [facility] [place] [facility] [address] [id number] [place] [address] Jul, [facility] [place] [facility] [address] [id number] [place] [address] Jul, [facility] [address] [id number] [place] [address] Jul, [facility] [address] [id number] [place] [address] Jun, [facility] [address] [id number] [place] [address] Jun, [facility] [address] [id number] [place] [address] Jun, [facility] [address] [id number] [place] [address] Jun, [facility] [address] [id number] [place] [address] Jun, [facility] [address] [id number] [place] [address] Jun, [facility] [address] [id number] [place] [address] Jun, [facility] [address] [id number] [place] [address] Jun, [facility] [address] [id number] [place] [address] May, [facility] [place] [facility] [address] [id number] [place] [address] May, [facility] [address] [id number] [place] [address] 18 May, 2014 [facility] [place] [facility] [address] [id number] [place] [address] 18 May, 2014 [facility] [place] [facility] [address] [id number] [place] [address] 15 May, 2014 [facility] [place] [facility] [address] [id number] [place] [id number] May, [facility] [place] [facility] [address] [id number] [place] [address] May, [facility] [place] [facility] [address] [id number] [place] [address] May, [facility] [place] [facility] [address] [id number] [place] [address] May, [facility] [place] [facility] [address] [id number] [place] [address] May, [facility] [place] [facility] [address] [id number] [place] [address] May, [facility] [place] [facility] [address] [id number] [place] [address] May, [facility] [place] [facility] [address] [id number] [place] [address] Apr, [facility] [place] [facility] [address] [id number] [place] [address] Apr, [facility] [place] [facility] [address] [id number] [place] [address] Apr, [facility] [place] [facility] [address] [id number] [place] [address] Apr, [facility] [place] [facility] [address] [id number] [place] [address] Apr, [facility] [place] [facility] [address] [id number] [place] [address] Apr, [facility] [place] [facility] [address] [id number] [place] [address] Apr, [facility] [place] [facility] [address] [id number] [place] [address] 7[address] Apr, [facility] [place] [facility] [address] [id number] [place] [address]- 6653 Apr, [facility] [place] [facility] [address] [id number] [place] [address] 8600 Apr, [facility] [place] [facility] [address] [id number] [place] [address]- 8286 Apr, [facility] [place] [facility] [address] [id number] [place] [address]- 9722 Apr, [facility] [place] [facility] [address] [id number] [place] [address] 6007 Mar, [facility] [place] [facility] [address] [id number] [place] [address] 9872 Mar, [facility] [place] [facility] [address] [id number] [place] [address] 5733 Mar, [facility] [place] [facility] [address] [id number] [place] [address] 0648 Mar, [facility] [place] [facility] [address] [id number] [place] [address]- 4626 10 Feb, 2014 [facility] [place] [facility] [address] [id number] [place] [address]- 4056 10 Feb, 2013 [facility] [place] [facility] [address] [id number] [place] [address]- 5908 05 Feb, 2013 [facility] [place] [facility] [address] [id number] [place] [address]- 6022 05 Feb, 2013 [facility] [place] [facility] [address] [id number] [place] [address]- 2894 Feb, 2013 [facility] [place] [facility] [address] [id number] [place] [address]- 9400 Feb, 2013 [facility] [place] [facility] [address] [id number] [place] [address]- 4717 Jan, [facility] [place] [facility] [address] [id number] [place] [address]- 3643 Jan, [facility] [place] [facility] [address] [id number] [place] [address]- 5686 Jan, [facility] [place] [facility] [address] [id number] [place] [address]- 5268 Jan, [facility] [place] [facility] [address] [id number] [place] [address]- 5424 Jan, [facility] [place] [facility] [address] [id number] [place] [address]- 5451 Jan, [facility] [place] [facility] [address] [id number] [place] [address]- 7683 Jan, [facility] [place] [facility] [address] [id number] [place] [address]- 4158 Jan, [facility] [place] [facility] [address] [id number] [place] [address]- 3336 Jan, [facility] [place] [facility] [address] [id number] [place] [address]- 5638 Jan, [facility] [place] [facility] [address] [id number] [place] [address]- 9689 Jan, [facility] [place] [facility] [address] [id number] [place] [address]- 9992 Jan, [facility] [place] [facility] [address] [id number] [place] [address]- 7660 Jan, [facility] [place] [facility] [address] [id number] [place] [address]- 5006 Jan, [facility] [place] [facility] [address] [id number] [place] [address]- 8043 Dec, [facility] [place] [facility] [address] [id number] [place] [address]- 2524 Dec, [facility] [place] [facility] [address] [id number] [place] [address]- 7942 Dec, [facility] [place] [facility] [address] [id number] [place] Dec, [facility] [place] [facility] [address] [id number] [place] [address]- 1721 Nov, [facility] [place] [facility] [address] [id number] [place] [address]- 0859 Nov, [facility] [place] [facility] [address] [id number] [place] [address]- 6782 Nov, [facility] [place] [facility] [address] [id number] [place] [address]- 6298 Nov, [facility] [place] [facility] [address] [id number] [place] [address]- 6935 Nov, [facility] [place] [facility] [address] [id number] [place] [address]- 5250 October, [facility] [place] [facility] [address] [id number] [place] [address]- 0269 October, [facility] [place] [facility] [address] [id number] [place] [address]- 9972 October, [facility] [place] [facility] [address] [id number] [place] [address]- 4850 October, [facility] [place] [facility] [address] [id number] [place] [address]- 9125 October, [facility] [place] [facility] [address] [id number] [place] [address]- 5406 October, [facility] [place] [facility] [address] [id number] [place] [address]- 3328 October, [facility] [place] [facility] [address] [id number] [place] [address]- 5203 October, [facility] [place] [facility] [address] [id number] [place] [address]- 8326 October, [facility] [place] [facility] [address] [id number] [place] [address]- 7833 October, [facility] [place] [facility] [address] [id number] [place] [address]- 5265 October, [facility] [place] [facility] [address] [id number] [place] [address]- 6644 October, [facility] [place] [facility] [address] [id number] [place] [address]- 2304 October, [facility] [place] [facility] [address] [id number] [place] [address]- 9102 October, [facility] [place] [facility] [address] [id number] [place] [address]- 9260 Sep, [facility] [place] [facility] [address] [id number] [place] [address]- 7327 Sep, [facility] [place] [facility] [address] [id number] [place] [address]- 6547 Sep, [facility] [place] [facility] [address] [id number] [place] [address]- 3816 Sep, [facility] [place] [facility] [address] [id number] [place] [address]- 3463 Sep, [facility] [place] [facility] [address] [id number] [place] [address]- 8605 Sep, [facility] [place] [facility] [address] [id number] [place] [address]- 8327 Sep, [facility] [place] [facility] [address] [id number] [place] [address]- 3532 Sep, [facility] [place] [facility] [address] [id number] [place] [address]- 0836 Sep, [facility] [place] [facility] [address] [id number] [place] [address]- 3822 Sep, [facility] [place] [facility] [address] [id number] [place] [address]- 9623 Sep, [facility] [place] [facility] [address] [id number] [place] [address]- 2267 Sep, [facility] [place] [facility] [address] [id number] [place] [address]- 2068 Sep, [facility] [place] [facility] [address] [id number] [place] [address]- 9354 Sep, [facility] [place] [facility] [address] [id number] [place] [address]- 2027 Sep, [facility] [place] [facility] [address] [id number] [place] [address]- 5407 Aug, [facility] [place] [facility] [address] [id number] [place] [address]- 4696 Aug, [facility] [place] [facility] [address] [id number] [place] [address]- 7341 Aug, [facility] [place] [facility] [address] [id number] [place] [address]- 2823 Aug, [facility] [place] [facility] [address] [id number] [place] [address]- 6817 Jul, [facility] [place] [facility] [address] [id number] [place] [address]- 3406 Jul, [facility] [place] [facility] [address] [id number] [place] [address]- 7248 Jul, [facility] [place] [facility] [address] [id number] [place] [address]- 2634 Jul, [facility] [place] [facility] [address] [id number] [place] [address]- 3144 Jun, [facility] [place] [facility] [address] [id number] [place] [address]- 0857 Jun, [facility] [place] [facility] [address] [id number] [place] [address]- 9676 Jun, [facility] [place] [facility] [address] [id number] [place] [address]- 4241 Jun, [facility] [place] [facility] [address] [id number] [place] [address]- 9259 Jun, [facility] [place] [facility] [address] [id number] [place] [address]- 1400 10 Jun, 2013 [facility] [address] [id number] [place] [address] Jun, [facility] [place] [facility] [address] [id number] [place] [address]- 9245 08 Jun, 2013 [facility] [address] [id number] [place] [address]- 0973 20 May, 2013 [facility] [place] [facility] [address] [id number] [place] [address]- 6648 20 May, 2013 [facility] [address] [id number] [place] [address]- 9662 18 May, 2013 [facility] [place] [facility] [address] [id number] [place] [address]- 6248 18 May, 2013 [facility] [address] [id number] [place] [address]- 0296 17 May, 2013 [facility] [address] [facility] [id number] [id number] 17 May, 2013 [facility] [place] [facility] [address] [id number] [place] [address]- 2669 17 May, 2013 [facility] [place] [facility] [address] [id number] [place] [address]- 6736 17 May, 2013 [facility] [place] [facility] [address] [id number] [place] [address]- 5736 16 May, 2013 [facility] [place] [facility] [address] [id number] [place] [address]- 5337 16 May, 2013 [facility] [place] [facility] [address] [id number] [place] [address]- 0379 14 May, 2013 [facility] [place] [facility] [address] [id number] [place] [address]- 7315 14 May, 2013 [facility] [place] [facility] [address] [id number] [place] [address]- 6408 13 May, 2013 [facility] [place] [facility] [address] [id number] [place] [address]- 0089 13 May, 2013 [facility] [address] [id number] [place] [address]- 7058 May, [facility] [place] [facility] [address] [id number] [place] [address]- 0595 May, [facility] [address] [id number] [place] [address]- 1868 May, [facility] [place] [facility] [address] [id number] [place] [address]- 8165 May, [facility] [address] [id number] [place] [address]- 4337 Apr, [facility] [place] [facility] [address] [id number] [place] [address]- 5942 Apr, [facility] [place] [facility] [address] [id number] [place] [address]- 4187 Apr, [facility] [address] [id number] [place] [address]- 9321 Apr, [facility] [place] [facility] [address] [id number] [place] [address]- 3733 Aug, [facility] [address] [id number] [place] [address]- 1298 Aug, [facility] [place] [facility] [address] [id number] [place] [address]- 8359 Aug, [facility] [place] [facility] [address] [id number] [place] [address]- 9737 05 Aug, 2012 [facility] [place] [facility] [address] [id number] [place] [address]- 4441 04 Jul, 2012 [facility] [place] [facility] [address] [id number] [place] [address]- 2235 Jun, [facility] [place] [facility] [address] [id number] [place] [address]- 4627 Jun, [facility] [address] [id number] [place] [address]- 2626 Jun, [facility] [place] [facility] [address] [id number] [place] [address]- 8307 Jun, [facility] [place] [facility] [address] [facility] [id number] [place] [address]300 May, [facility] [place] [facility] [address] [id number] [place] [address]- 2365 May, [facility] [place] [facility] [address] [id number] [place] [address]- 9022 May, [facility] [place] [facility] [address] [id number] [place] [address]- 5929 May, [facility] [place] [facility] [address] [id number] [place] [address]- 1014 May, [facility] [place] [facility] [address] [id number] [place] [address]- 3334 May, [facility] [place] [facility] [address] [id number] [place] [address]- 1556 May, [facility] [place] [facility] [address] [id number] [place] [address]- 1524 Apr, [facility] [place] [facility] [address] [id number] [address]- 4425 Apr, [facility] [place] [facility] [address] [id number], [place] [address]- 7547 Apr, [facility] [place] [facility] [address] [id number] [place] [address]- 0504 Apr, [facility] [place] [facility] [address] [id number] [place] [address]- 6332 Apr, [facility] [place] [facility] [address] [facility] [id number] [place] [address]- 9214 Apr, [facility] [place] [facility] [address] [id number] [place] [address]- 4949 Apr, [facility] [place] [facility] [address] [id number] [place] [address]- 9900 Mar, 2011 [facility] [place] [facility] [address] [id number] [place] [address]80 Mar, [facility] [place] [facility] [address] [id number] [place] [address]- 4990 Mar, [facility] [place] [facility] [address] [id number] [place] [address]- 8180 Mar, [facility] [place] [facility] [address] [id number] [place] [address]174 Mar, [facility] [place] [facility] [address] [id number] [place] [address]- 8636 Mar, [facility] [place] [facility] [address] [id number] [place] [address]- 6115 Mar, [facility] [place] [facility] [address] [id number] [place] [address]- 4660 Mar, [facility] [place] [facility] [address] [id number] [place] [address]- 7936 Mar, [facility] [place] [facility] [address] [facility] [id number] [place] [address]- 0011 15 Mar, 2012 [facility] [place] [facility] [address] [id number] [place] [address]- 7005 Mar, [facility] [place] [facility] [address] [id number], [place] [address]- 0090 Mar, [facility] [place] [facility] [address] [id number] [place] [address]- 0176 06 Feb, 2012 [facility] [place] [facility] [address] [id number] [place] [address]- 6826 Jan, [facility] [place] [facility] [address] [id number] [address]- 6383 Jan, [facility] [place] [facility] [address] [id number] [place] [address]- 4002 Jan, [facility] [place] [facility] [address] [id number] [place] [address]- 6827 Jan, [facility] [place] [facility] [address] [id number] [place] [address]- 2465 Jan, [facility] [place] [facility] [address] [id number] [place] [address]- 2982 Dec, [facility] [address] [id number] [place] [address]- 5172 Dec, [facility] [place] [facility] [address] [id number] [place] [address]- 9637 Nov, [facility] [address] [id number] [place] [address]- 9960 Nov, [facility] [address] [id number] [place] [address]- 4384 Nov, [facility] [place] [facility] [address] [id number] [place] [address]- 0661 October, [facility] [address] [id number] [place] [address]- 8178 October, [facility] [place] [facility] [address] [id number] [place] [address]- 3849 October, [facility] [place] [facility] [address] [id number] [place] [address]- 3666 October, [facility] [place] [facility] [address] [id number] [place] [address]- 1385 October, [facility] [place] [facility] [address] [id number] [place] [address]- 7835 October, [facility] [place] [facility] [address] [id number] [place] [address]- 2648 October, [facility] [place] [facility] [address] [id number] [place] [address]- 6695 26 Sep, 2011 [facility] [place] [facility] [address] [id number] [place] [address]- 9882 26 Sep, 2011 [facility] [place] [facility] [address] [id number] [place] [address]- 8404 26 Sep, 2011 [facility] [place] [facility] [address] [id number] [place] [address]- 0114 25 Sep, 2011 [facility] [place] [facility] [address] [id number] [place] [address]- 7310 24 Sep, 2011 [facility] [place] [facility] [address] [id number] [place] [address]- 4074 19 Sep, 2011 [facility] [place] [facility] [address] [id number] [place] [address]- 9026 17 Sep, 2011 [facility] [place] [facility] [address] [id number] [place] [address]- 4132 16 Sep, 2011 [facility] [place] [facility] [address] [id number] [place] [address]- 2874 16 Sep, 2011 [facility] [place] [facility] [address] [id number] [place] [address]- 7917 14 Sep, 2011 [facility] [place] [facility] [address] [id number] [place] [address]- 6548 13 Sep, 2011 [facility] [place] [facility] [address] [id number] [place] [address]- 5146 10 Sep, 2011 [facility] [place] [facility] [address] [id number] [place] [address]- 1162 09 Sep, 2011 [facility] [place] [facility] [address] [id number] [place] [address]- 6289 27 Aug, 2011 [facility] [place] [facility] [address] [id number] [place] [address]- 5473 12 Aug, 2011 [facility] [place] [facility] [address] [id number] [place] [address]- 4166 08 Aug, 2011 [facility] [place] [facility] [address] [id number] [place] [address]- 7174 Aug, [facility] [place] [facility] [address] [id number] [place] [address]- 1336 28 Jul, 2011 [facility] [place] [facility] [address] [id number] [place] [address]- 2216 22 Jul, 2011 [facility] [place] [facility] [address] [id number] [place] [address]- 5896 16 Jul, 2011 [facility] [place] [facility] [address] [id number] [place] [address] 2546 15 Jul, 2011 [facility] [place] [facility] [address] [id number] [place] [address]- 6226 14 Jul, 2011 [facility] [place] [facility] [address] [id number] [place] [address]- 6010 10 Jul, 2011 [facility] [place] [facility] [address] [id number] [place] [address] Jun, [facility] [place] [facility] [address] [id number] [place] [address] Jun, [facility] [place] [facility] [address] [id number] [place] [address] Jun, [facility] [place] [facility] [address] [id number] [place] [address] Jun, [facility] [place] [facility] [address] [id number] [place] [address] Jun, [facility] [place] [facility] [address] [id number] [place] [address] May, [facility] [place] [facility] [address] [id number] [place] [address] May, [facility] [place] [facility] [address] [id number] [place] [address] May, [facility] [place] [facility] [address] [id number] [place] [address] 14 May, 2011 [facility] [place] [facility] [address] [id number] [place] [address] 12 May, 2011 [facility] [place] [facility] [address] [id number] [place] [address] May, [facility] [place] [facility] [address] [id number] [place] [address] May, [facility] [place] [facility] [address] [id number] [place] [address] Apr, [facility] [place] [facility] [address] [id number] [place] [address] Apr, [facility] [place] [facility] [address] [id number] [place] [address] Apr, [facility] [place] [facility] [address] [id number] [place] [address] Apr, [facility] [place] [facility] [address] [id number] [place] [address] Apr, [facility] [place] [facility] [address] [id number] [place] [address] Apr, [facility] [place] [facility] [address] [id number] [place] [address] Mar, [facility] [place] [facility] [address] [id number], [place] [address] Mar, [facility] [place] [facility] [address] [id number] [address] Mar, [facility] [place] [facility] [address] [id number] [place] [address] Mar, [facility] [place] [facility] [address] [id number] [address] Jan, [facility] [place] [facility] [address] [id number] [place] [address] Dec, [facility] [place] [facility] [address] [id number] [place] [address] 13 Dec, 2010 [facility] [address] [id number] [place] [address] 11 Oct, 2010 [facility] [place] [facility] [address] [id number] [place] [address]46 20 Sep, 2010 [facility] [address] [id number] [place] [address] 14 Sep, 2010 [facility] [address] [id number] [place] [address] 2546 17 Jul, 2010 [facility] [id number] [place] [address], [place] [address]6 16 Jul, 2010 [facility] [address] [id number] [place] [address] 31 May, 2010 [facility] [address] [id number] [place] [address] 254 May, [facility] [address] [id number] [place] [address] 08 May, 2010 [facility] [address] [id number] [place] [address] May, [facility] [address] [id number] [place] [address] Apr, [facility] [place] [facility] [address] [id number] [place] [address] 2549 Apr, [facility] [address] [id number] [place] [address] 254 Apr, [facility] [place] [facility] [address] [id number] [place] [address] Apr, [facility] [place] [facility] [address] [id number] [place] [address]40 Apr, [facility] [address] [id number] [place] [address]- [address] Mar, [facility] [place] [facility] [address] [id number] [place] [address]- [address] 14 Mar, 2010 [facility] [place] [facility] [address] [id number] [place] [address]- 9[address] 13 Mar, 2010 [facility] [place] [facility] [address] [id number] [place] [address]- [address] 12 Mar, 2010 [facility] [place] [facility] [address] [id number] [place] [address]- 0963 20 Jan, 2010 [facility] [place] [facility] [address] [id number] [place] [address]- 1770 15 Dec, 2009 [facility] [place] [facility] [address] [id number], [place] [address] 10 Sep, 2009 [facility] [place] [facility] [address] [facility] [id number] [place] [address]- [address] 08 May, 2009 [facility] [place] [facility] [address] [id number], [place] [address] 06 May, 2009 [facility] [place] [facility] [address] [id number], [place] [address] May, [facility] [place] [facility] [address] [facility] [id number], [place] [address] 17 Apr, 2009 [facility] [place] [facility] [address] [id number], [place] [address] 17 Apr, 2009 [facility] [place] [facility] [address] [id number], [place] [address] 10 Apr, 2009 [facility] [place] [facility] [address] [id number], [place] [address]- 7661 10 Apr, 2009 [facility] [place] [facility] [address] [id number], [place] [address]- [address] 09 Apr, 2009 [facility] [place] [facility] [address] [facility] [id number], [place] [address]- [address] 15 Mar, 2009 [facility] [place] [facility] [address] [id number], [place] [address] Mar, [facility] [place] [address] [facility] [id number] [place] [address] Jul, IMMUNIZATIONS No Known Immunizations SOCIAL HISTORY Never Assessed REASON FOR VISIT Patient Call PLAN OF CARE VITAL SIGNS MEDICATIONS Unknown [...] 08/2017 Surgical History nephrectomy 03/2017 Hospitalization History Cellulitis-[facility] 12/20/15 Hospitalization History [facility] [place]- Abd pain 03/07/2017 Hospitalization History ED [place]- Abd pain 03/14/2017 Hospitalization History ED [facility]- No bowel movement, rash 04/13/2017 Hospitalization History ED [place]- Abd pain r/t kidney surgery on 04/17/2017 Hospitalization History [facility] [place]- Abd pain r/t kidney surgery on 04/18/2017 Hospitalization History ED [place]- Lower abd pain 04/30/2017 Hospitalization History ED [facility]- Cannot urinate 05/30/2017 Hospitalization History [facility] [place]- Pancreatitis Sx 06/29/2017 Hospitalization History [facility] [place]- Stomach pain 07/22/2017 Hospitalization History [facility] [place]- Left side pain 08/12/2017 Hospitalization History [facility] [place]- Incision site infection 08/30/2017 Hospitalization History [facility]- Post Op Seroma/Hematoma Left Abdomen. Discharged 09/04/17- Dr Daniel 09/02/2017 Hospitalization History [facility] [place]- Right shoulder and back pain 2017 Hospitalization History [facility] [place]- Shoulder/Back pain 11/11/2017 Hospitalization History [facility] [place]- Right shoulder blade pain 12/04/2017 Hospitalization History [facility]- C-Diff 12/13/2017 Hospitalization History C diff et MRSA 12/27/2017
--- OUTSIDE RECORDS SUMMARY | 2018-02-24 14:17 | XMS REPORT ---
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 Name Role Phone AGNIESZKA RESENDIZ Unavailable PROBLEMS Type Condition ICD9-CM Code JPL39-QM Code Onset Dates Condition Status SNOMED Code Problem Polydipsia R63.1 Active 30427285 Problem Trichotillomania F63.3 Active 29750395 Problem Atelectasis J98.11 Active 96202103 Problem Intestinal malabsorption, unspecified K90.9 Active 20118986 Problem Chronic fatigue R53.82 Active 95297993 Problem Generalized social phobia F40.11 Active 55362280 Problem Restless leg syndrome G25.81 Active 06617851 Problem Moderate episode of recurrent major depressive disorder F33.1 Active 300958462 Problem Chronic post-traumatic stress disorder (PTSD) F43.12 Active 865666731 Problem History of renal cell carcinoma Z85.528 Active 335689575 Problem Chronic tension-type headache, intractable G44.221 Active 232092482 Problem Nodule of left lung R91.1 Active 321355764 Problem Hirsuties L68.0 Active 584924200 Problem FH: polycystic ovary Z84.2 Active 550412602 Problem Morbid (severe) obesity due to excess calories E66.01 Active 540332967 Problem Chronic pancreatitis K86.1 Active 483322912 Problem Hyperlipidemia, mixed E78.2 Active 317485440 Problem Asthma J45.909 Active 486861111 ALLERGIES Substance Reaction Event Type Date Status Vancomycin HCl itching Drug Allergy Dec, Active Penicillin V Potassium Unknown Drug Allergy Dec, Active Fentanyl Unknown Drug Allergy Dec, Active Demerol Unknown Drug Allergy Dec, Active ENCOUNTERS Encounter Location Date Diagnosis [facility] [address] [facility] [id number] [address] Mar, [facility] [address], [place] [address] Feb, [facility] [address] [place] [id number] [place] [address] 49739- 7841 Jan, Acute pain of right knee M25.561 ; Right upper quadrant abdominal pain R10.11 and BMI 45.0-49.9, adult Z68.42 [place] [id number] [place] [address] 73959- 9841 Jan, [facility] [id number] [place] [address] 08942- 8022 Jan, [place] [id number] [place] [address] 33848- 0905 Dec, [facility] [id number] [place] [address] 27268- 0400 Dec, Intestinal malabsorption, unspecified K90.9 and Diarrhea, unspecified R19.7 [facility] [id number] [place] [address] 34051- 2631 Dec, [facility] [id number] [place] [address] 81867- 1855 Dec, Strep throat J02.0 ; Intestinal malabsorption, unspecified K90.9 ; Diarrhea, unspecified R19.7 ; Postoperative seroma involving digestive system after non-digestive system procedure K91.873 ; Hyperlipidemia, mixed E78.2 and BMI 45.0-49.9, adult Z68.42 [facility] [id number] [place] [address] 36576- 5213 Dec, [facility] [id number] [place] [address] 06804- 0055 Dec, Nausea R11.0 [facility] [id number] [place] [address] 09450- 3334 Dec, [facility] [id number] [place] [address] 88226 -5496 17 Harshad, 2018 Sore throat J02.9 ; Strep throat J02.0 and BMI 45.0-49.9, adult Z68.42 [facility] [address] [place] [address] 3660 Dec, [facility] [address] [facility] [id number] [place] [address]- 0341 Dec, [facility] [address] [place] [address] 1625 Dec, [facility] [address] [facility] [id number] [place] [address]- 3185 Dec, [facility] [address] [place] [address]- 5517 Dec, [facility] [address], [place] [address] 3301 Dec, [facility] [address] [place] [address]- 5454 Dec, [facility] [address], [place] [address]- 8246 Dec, [facility] [address], [place] [address]- 2777 Dec, Clostridium difficile colitis A04.72 ; Intractable vomiting with nausea, unspecified vomiting type R11.2 and BMI 45.0-49.9, adult Z68.42 [facility] [address], [place] [address]- 8165 Dec, [facility] [address], [place] [address]- 1512 Nov, [facility] [address], [place] [address]- 6776 Nov, [facility] [address], [place] [address]- 5660 Nov, [facility] [address], [place] [address]- 2420 Nov, [facility] [id number] [place] [address] 94962 -8252 Nov, [place] [id number] [place] [address] 90444- 5495 Nov, Hyperlipidemia, mixed E78.2 [facility] [id number] [place] [address] 69448 -9589 Nov, Acute suppurative otitis media of right ear without spontaneous rupture of tympanic membrane, recurrence not specified H66.001 and BMI 45.0-49.9, adult Z68.42 [place] [address] 50006- 5169 Nov, Hyperlipidemia, mixed E78.2 [facility] [id number] [place] [address] 08107- 2502 Nov, [place] [address] 08814- 0189 Nov, [place] [id number] [place] [address] 93618- 7907 Nov, Nodule of left lung R91.1 [place] [id number] [place] [address] 40229- 9472 04 Nov, 2017 Medicare annual wellness visit, [...] adult Z68.42 and Encounter for immunization Z23 [place] [id number] [place] [address] 77508- 6036 October, [address] [place] [address]- 6359 October, Nodule of left lung R91.1 [place] [address] 62346- 6827 October, Nodule of left lung R91.1 [place] [id number] [place] [address] 07406- 4643 October, Recurrent major depressive disorder, in partial remission F33.41 ; Restless leg syndrome G25.81 ; Generalized social phobia F40.11 ; Chronic post-traumatic stress disorder (PTSD) F43.12 ; BMI 45.0-49.9, adult Z68.42 and Trichotillomania F63.3 [place] [address] 63066- 7079 October, [facility] [place] [address] [id number] [place] [address] 68130- 4178 Sep, Chronic fatigue R53.82 and BMI 45.0-49.9, adult Z68.42 [place] [id number] [place] [address] 37099- 4907 Aug, [place] [address] 63536- 9024 Jul, Restless leg syndrome G25.81 and B12 deficiency E53.8 [place] [address] [address] [id number] [place] [address] 78906- 4449 Jul, [facility] [place] [id number] [place] [address] 75339- 4284 Jul, [facility] [place] [id number] [place] [address] 63443- 7730 Jun, [place] [place] [id number] [place] [address] 88417- 4984 Jun, Fatigue, unspecified type R53.83 ; History of renal cell carcinoma Z85.528 ; Chronic pancreatitis K86.1 ; Restless leg syndrome G25.81 ; Dark urine R82.99 and BMI 45.0-49.9, adult Z68.42 [place] [address], [place] [address]- 2812 Jun, [facility] [address], [place] [address]- 3781 Jun, [place] [id number] [place] [address] 85454- 1396 Jun, [place] [place] [id number] [place] [address] 89853- 1645 Jun, [place] [place] [id number] [place] [address] 14098- 3427 May, Chronic post-traumatic stress disorder (PTSD) F43.12 ; Moderate episode of recurrent major depressive disorder F33.1 ; Trichotillomania F63.3 and Generalized social phobia F40.11 [place] [id number] [place] [address] 36716- 1551 May, [place] [address], [place] [address]- 6945 May, Chronic post-traumatic stress disorder (PTSD) F43.12 ; Moderate episode of recurrent major depressive disorder F33.1 ; Trichotillomania F63.3 and Generalized social phobia F40.11 [place] [address], [place] [address]- 8352 May, Hyperlipidemia, mixed E78.2 ; Morbid (severe) obesity due to excess calories E66.01 ; Chronic post-traumatic stress disorder (PTSD) F43.12 ; Moderate episode of recurrent major depressive disorder F33.1 ; Trichotillomania F63.3 and Generalized social phobia F40.11 [place] [address], [place] [address]- 2063 Apr, [place] [address], [place] [address]- 0519 Apr, Hyperlipidemia, mixed E78.2 ; Morbid (severe) obesity due to excess calories E66.01 ; Chronic post-traumatic stress disorder (PTSD) F43.12 ; Moderate episode of recurrent major depressive disorder F33.1 ; Trichotillomania F63.3 and Generalized social phobia F40.11 [facility] [id number] [place] [address] 71835- 6411 Apr, Trichotillomania F63.3 ; Generalized social phobia F40.11 ; Chronic post-traumatic stress disorder (PTSD) F43.12 and Moderate episode of recurrent major depressive disorder F33.1 [place] [id number] [place] [address] 16435- 6414 Apr, [place] [address] 59524- 2121 Apr, [place] [id number] [place] [address] 29772- 5962 Mar, Moderate episode of recurrent major depressive disorder F33.1 ; Trichotillomania F63.3 ; Chronic post-traumatic stress disorder (PTSD) F43.12 ; Generalized social phobia F40.11 and Restless leg syndrome G25.81 [place] [id number] [place] [address] 12767- 6414 Mar, [place] [id number] [place] [address] 00262- 3044 Mar, [place] [address] [id number] [place] [address] 46993- 5970 Feb, Left kidney mass N28.89 [facility] [id number] [place] [address] 39529- 8590 Jan, [place] [id number] [place] [address] 97005- 7687 Dec, Polydipsia R63.1 ; Chronic pancreatitis K86.1 and Fatigue, unspecified type R53.83 [place] [address] 29505- 9013 Nov, [facility] [address] [place] [address] 91379- 2051 Nov, [facility] [id number] [place] [address] 26829- 3723 Nov, Headache around the eyes R51 [facility] [id number] [place] [address] 79506- 2574 Nov, [facility] [id number] [place] [address] 75104- 0148 October, STD exposure Z20.2 [facility] [address] 87223- 8872 October, STD exposure Z20.2 [facility] [id number] [place] [address] 50315- 5777 October, Chronic post-traumatic stress disorder (PTSD) F43.12 ; Generalized social phobia F40.11 ; Trichotillomania F63.3 and Restless leg syndrome G25.81 [facility] [id number] [place] [address] 93079- 1562 October, [facility] [id number] [place] [address] 17068- 3262 Sep, [facility] [id number] [place] [address] 56965- 1039 Aug, [facility] [id number] [place] [address] 04523- 9415 Aug, [facility] [id number] [place] [address] 10643- 8288 Aug, Neck mass R22.1 [facility] [id number] [place] [address] 27109- 8685 Aug, Atelectasis J98.11 [facility] [id number] [place] [address] 88084- 7513 28 Feb, 2017 Hyperlipidemia, mixed E78.2 ; Atypical pneumonia J18.9 and Neck mass R22.1 [place] [id number] [place] [address] 27104- 0808 15 Jul, 2016 Hemoptysis R04.2 [place] [id number] [place] [address] 26372- 2698 08 Jul, 2016 Acute non-recurrent pansinusitis J01.40 ; Hemoptysis R04.2 ; Polydipsia R63.1 and Malaise R53.81 [facility] [place] [id number] [place] [address] 06621 -5976 May, Other viral agents as the cause of diseases classified elsewhere B97.89 and Acute upper respiratory infection, unspecified J06.9 [facility] [place] [id number] [place] [address] 97282 -3599 Mar, Nausea R11.0 [facility] [address] 01637 -3839 28 Dec, 2015 Hives L50.[address] 58413- 9757 14 Dec, 2015 [facility] [place] [id number] [place] [address] 72868 -2512 Dec, Cutaneous abscess of limb, unspecified L02.419 ; Cellulitis of unspecified part of limb L03.119 ; Encounter for incision and drainage procedure Z01.89 and Encounter for recheck of abscess following incision and drainage Z09 [facility] [place] [id number] [place] [address] 22566 -6083 09 Dec, 2015 Abscess of leg, right L02.[address] 42086- 3429 08 Dec, 2015 Cellulitis of unspecified part of limb L03.119 and Cutaneous abscess of limb, unspecified L02.[address] 07328- 6506 Dec, [facility] [address] [place] [address] 13376- 1171 Dec, [facility] [id number] [place] [address] 31745 -2664 Aug, [facility] [id number] [place] [address] 93299- 2537 Aug, [facility] [id number] [place] [address] 27535 -3019 Jul, Pain in unspecified wrist M25.539 and Back pain, thoracic M54.6 [facility] [place] [id number] [place] [address] 19315 -3256 Jun, Strain of right wrist, initial encounter S66.911A [place] [address] [id number] [place] [address] 48006- 1169 Jun, Chronic pancreatitis, unspecified pancreatitis type K86.1 ; Hirsuties L68.0 ; Morbid (severe) obesity due to excess calories E66.01 ; Chronic pancreatitis K86.1 and Asthma J45.909 [place] [address] [id number] [place] [address] 50499- 9836 May, [place] [address] [id number] [place] [address] 09786- 1354 May, Hyperlipidemia, mixed E78.2 and Muscle spasm of back M62.830 [place] [address] [id number] [place] [address] 37290- 1172 30 Apr, 2015 [place] [address] [address] [id number] [place] [address] 40366- 2851 Apr, Torticollis M43.6 [place] [address] [id number] [place] [address] 02782- 7588 09 Apr, 2015 Right-sided thoracic back pain M54.6 [place] [address] [id number] [place] [address] 35286- 1918 Mar, Rash R21 [facility] [address], [place] [address]- 7572 Mar, [facility] [id number] [place] [address] 679406- 9052 Jan, [facility] [id number] [place] [address] 39643- 0890 Dec, [facility] [id number] [place] [address] 243104- 2646 Dec, Urinary frequency 788.41 and Nocturia more than twice per night 788.43 [facility] [id number] [place] [address] 50470- 2473 Nov, [facility] [id number] [place] [address] 69476- 6440 Nov, [facility] [id number] [place] [address] 72547- 4476 Nov, Abdominal pain 789.00 [facility] [address] [place] [address] 88862- 1302 October, TDAP DX V06.1 [facility] [id number] [place] [address] 12815- 0439 October, [facility] [address] [place] [address] 66425- 0643 October, Disturbance of skin sensation 782.0 ; Wrist pain, right 719.43 ; Hyperlipidemia 272.4 and Skin lesion of face 709.9 [facility] [address], [place] [address]- 6746 Sep, [facility] [id number] [place] [address] 798787- 8553 Sep, [facility] [address]- 9787 Aug, [facility] [address] [place] [address] [place] [address]- 4144 26 Aug, 2014 [facility] [place] [facility] [address] [id number] [place] [address]- 3622 23 Aug, 2014 [facility] [place] [facility] [address] [id number] [place] [address]- 4684 23 Aug, 2014 [facility] [place] [facility] [address] [id number] [place] [address]- 3231 16 Aug, 2014 [facility] [place] [facility] [address] [id number] [place] [address]- 2226 16 Aug, 2014 [facility] [place] [facility] [address] [id number] [place] [address]- 9724 14 Aug, 2014 [facility] [place] [facility] [address] [id number] [place] [address]- 3458 14 Aug, 2014 [facility] [place] [facility] [address] [id number] [place] [address]- 5045 11 Aug, 2014 [facility] [place] [facility] [address] [id number] [place] [address]- 7883 11 Aug, 2014 [facility] [place] [facility] [address] [id number] [place] [address]- 4085 04 Aug, 2014 [facility] [place] [facility] [address] [id number] [place] [address]- 4870 04 Aug, 2014 [facility] [place] [facility] [address] [id number] [place] [address]- 8331 Aug, [facility] [place] [facility] [address] [id number] [place] [address]- 2175 Aug, [facility] [place] [facility] [address] [id number] [place] [address]- 3198 Jul, 2014 [facility] [place] [facility] [address] [id number] [place] [address]- 7956 23 Jul, 2014 [facility] [place] [facility] [address] [id number] [place] [address]- 9069 13 Jul, 2014 [facility] [place] [facility] [address] [id number] [place] [address]- 4774 Jul, 2014 [facility] [place] [facility] [address] [id number] [place] [address]- 8699 Jul, [facility] [place] [facility] [address] [id number] [place] [address]- 0980 Jul, [facility] [place] [facility] [address] [id number] [place] [address]- 1814 Jun, [facility] [place] [facility] [address] [id number] [place] [address]- 1667 Jun, [facility] [place] [facility] [address] [id number] [place] [address]- 6847 Jun, [facility] [place] [facility] [address] [facility] [id number] [place] [address]- 4485 Jun, [facility] [place] [facility] [address] [id number], [place] [address]- 8635 Jun, [facility] [place] [facility] [address] [id number] [place] [address]- 5715 Jun, [facility] [place] [facility] [address] [facility] [id number], [place] [address]- 8150 Jun, [facility] [place] [facility] [address] [id number], [place] [address]- 0544 Jun, [facility] [place] [facility] [address] [id number], [place] [address]- 7101 May, [facility] [place] [facility] [address] [id number] [place] [address]- 4388 May, [facility] [place] [facility] [address] [id number], [place] [address]- 2092 May, [facility] [place] [facility] [address] [facility] [id number], [place] [address]- 3291 May, [facility] [place] [facility] [address] [id number] [place] [address]- 3602 15 May, 2014 [facility] [place] [facility] [address] [id number] [place] [address]- 8366 May, [facility] [place] [facility] [address] [id number] [place] [address]- 1216 May, [facility] [place] [facility] [address] [id number] [place] [address]- 1867 May, [facility] [place] [facility] [address] [id number] [place] [address]- 0237 May, [facility] [place] [facility] [address] [id number] [place] [address]- 9371 May, [facility] [place] [facility] [address] [id number] [place] [address]- 9744 May, [facility] [place] [facility] [address] [id number] [place] [address]- 6182 May, [facility] [place] [facility] [address] [id number] [place] [address]- 6585 Apr, [facility] [place] [facility] [address] [id number] [place] [address]- 9633 Apr, [facility] [place] [facility] [address] [id number] [place] [address]- 1629 Apr, [facility] [place] [facility] [address] [id number] [place] [address]- 6242 Apr, [facility] [place] [facility] [address] [id number] [place] [address] Apr, [facility] [place] [facility] [address] [id number] [place] [address] Apr, [facility] [place] [facility] [address] [id number] [place] [address] Apr, [facility] [place] [facility] [address] [id number] [place] [address] Apr, [facility] [place] [facility] [address] [id number] [place] [address] Apr, [facility] [place] [facility] [address] [id number] [place] [address] Apr, [facility] [place] [facility] [address] [id number] [place] [address] Apr, [facility] [place] [facility] [address] [id number] [place] [address] Apr, [facility] [place] [facility] [address] [id number] [place] [address] Mar, [facility] [place] [facility] [address] [id number] [place] [address] Mar, [facility] [place] [facility] [address] [id number] [place] [address] Mar, [facility] [place] [facility] [address] [id number] [place] [address] Mar, [facility] [place] [facility] [address] [id number] [place] [address] Feb, [facility] [place] [facility] [address] [id number] [place] [address] Feb, [facility] [place] [facility] [address] [id number] [place] [address] Feb, [facility] [place] [facility] [address] [id number] [place] [address] 05 Feb, 2013 [facility] [place] [facility] [address] [id number] [place] [address] 05 Feb, 2014 [facility] [place] [facility] [address] [id number] [place] [address] Feb, [facility] [place] [facility] [address] [id number] [place] [address] Jan, [facility] [place] [facility] [address] [id number] [place] [address] Jan, [facility] [place] [facility] [address] [id number] [place] [address] Jan, [facility] [place] [facility] [address] [id number] [place] [address] Jan, [facility] [place] [facility] [address] [id number] [place] [address] Jan, [facility] [place] [facility] [address] [id number] [place] [address] Jan, [facility] [place] [facility] [address] [id number] [place] [address] Jan, [facility] [place] [facility] [address] [id number] [place] [address] Jan, [facility] [place] [facility] [address] [id number] [place] [address] Jan, [facility] [place] [facility] [address] [id number] [place] [address] Jan, [facility] [place] [facility] [address] [id number] [place] [address] Jan, [facility] [place] [facility] [address] [id number] [place] [address] Jan, [facility] [place] [facility] [address] [id number] [place] [address] Jan, [facility] [place] [facility] [address] [id number] [place] [address] Jan, [facility] [place] [facility] [address] [id number] [place] [address] Dec, [facility] [place] [facility] [address] [id number] [place] [address]- 7528 Dec, [facility] [place] [facility] [address] [id number] [place] [address] Dec, [facility] [place] [facility] [address] [id number] [place] [address] Dec, [facility] [address] [id number] [place] [address] Nov, [facility] [place] [facility] [address] [id number] [place] [address] Nov, [facility] [address] [id number] [place] [address] Nov, [facility] [place] [facility] [address] [id number] [place] [address] Nov, [facility] [address] [id number] [place] [address] 0[address] Nov, [facility] [address] [id number] [place] [address] 3788 October, [facility] [place] [facility] [address] [id number] [place] [address] 5099 October, [facility] [address] [id number] [place] [address] 3723 October, [facility] [place] [facility] [address] [id number] [place] [address] 7447 October, [facility] [address] [id number] [place] [address] October, [facility] [place] [facility] [address] [id number] [place] [address] October, [facility] [place] [facility] [address] [id number] [place] [address] 4120 October, [facility] [place] [facility] [address] [id number] [place] [address]- 5753 October, [facility] [place] [facility] [address] [id number] [place] [address] October, [facility] [place] [facility] [address] [id number] [place] [address] 8162 October, [facility] [address] [id number] [place] [address] 7612 October, [facility] [place] [facility] [address] [id number] [place] [address]- 9686 October, [facility] [place] [facility] [address] [id number] [place] [address] 8701 October, [facility] [place] [facility] [address] [id number] [place] [address]- 3825 October, [facility] [place] [facility] [address] [id number] [place] [address]- 0179 Sep, [facility] [place] [facility] [address] [id number] [place] [address]- 6623 Sep, [facility] [place] [facility] [address] [id number] [place] [address]- 8506 Sep, [facility] [place] [facility] [address] [id number] [place] [address]- 9162 Sep, [facility] [place] [facility] [address] [id number] [place] [address]- 4822 Sep, [facility] [place] [facility] [address] [id number] [place] [address]- 0155 Sep, [facility] [place] [facility] [address] [id number] [place] [address]- 2943 Sep, [facility] [place] [facility] [address] [id number] [place] [address]- 0526 Sep, [facility] [place] [facility] [address] [id number] [place] [address]- 4338 Sep, [facility] [place] [facility] [address] [id number] [place] [address]- 6290 Sep, [facility] [place] [facility] [address] [id number] [place] [address]- 4289 Sep, [facility] [place] [facility] [address] [id number] [place] [address]- 6014 Sep, [facility] [place] [facility] [address] [id number] [place] [address]- 4065 Sep, [facility] [place] [facility] [address] [id number] [place] [address]- 0495 Sep, [facility] [place] [facility] [address] [id number] [place] [address]- 2643 Sep, [facility] [place] [facility] [address] [id number] [place] [address]- 6363 Aug, [facility] [place] [facility] [address] [id number] [place] [address]- 5465 Aug, [facility] [place] [facility] [address] [id number] [place] [address]- 9855 Aug, [facility] [place] [facility] [address] [id number] [place] [address]- 1391 Aug, [facility] [place] [facility] [address] [id number] [place] [address]- 5540 Jul, [facility] [place] [facility] [address] [id number] [place] [address]- 1692 Jul, [facility] [place] [facility] [address] [id number] [place] [address]- 0726 Jul, [facility] [place] [facility] [address] [facility] [id number] [place] [address] 6466 Jul, [facility] [place] [facility] [address] [id number] [place] [address]- 4795 Jun, [facility] [place] [facility] [address] [id number] [place] [address]- 1303 Jun, [facility] [place] [facility] [address] [id number] [place] [address]- 8839 Jun, [facility] [place] [facility] [address] [id number], [place] [address]- 1713 Jun, [facility] [place] [facility] [address] [id number] [place] [address]- 3396 10 Jun, 2013 [facility] [address] [id number] [place] [address]- 7887 10 Jun, 2013 [facility] [place] [facility] [address] [id number] [place] [address]- 4922 08 Jun, 2013 [facility] [place] [facility] [address] [id number] [place] [address]- 3631 Jun, [facility] [address] [id number] [place] [address]- 1723 20 May, 2013 [facility] [place] [facility] [address] [id number] [place] [address]- 0525 20 May, 2013 [facility] [address] [id number] [place] [address] 18 May, 2013 [facility] [address] [id number] [place] [address]- 3107 18 May, 2013 [facility] [address] [id number] [place] [address]- 1221 17 May, 2013 [facility] [place] [facility] [address] [id number] [place] [id number] 17 May, 2013 [facility] [place] [facility] [address] [id number] [place] [address] 17 May, 2013 [facility] [place] [facility] [address] [id number] [place] [address]- 5072 17 May, 2013 [facility] [place] [facility] [address] [id number] [place] [address]- 6753 16 May, 2013 [facility] [place] [facility] [address] [id number] [place] [address]- 5104 16 May, 2013 [facility] [place] [facility] [address] [id number] [place] [address]- 9708 14 May, 2013 [facility] [place] [facility] [address] [id number] [place] [address]- 5367 14 May, 2013 [facility] [address] [id number] [place] [address]- 1748 13 May, 2013 [facility] [place] [facility] [address] [id number] [place] [address]- 3299 13 May, 2013 [facility] [place] [facility] [address] [facility] [id number] [place] [address]156 12 May, 2013 [facility] [place] [facility] [address] [id number] [place] [address]- 4702 May, [facility] [place] [facility] [address] [id number] [place] [address]- 8141 May, [facility] [place] [facility] [address] [id number] [place] [address]- 3714 May, [facility] [place] [facility] [address] [id number] [place] [address]- 7782 Apr, [facility] [place] [facility] [address] [id number], [place] [address]- 0820 Apr, [facility] [place] [facility] [address] [id number] [place] [address]- 6699 Apr, [facility] [place] [facility] [address] [id number] [place] [address]- 7549 Apr, [facility] [place] [facility] [address] [id number], [place] [address]- 4475 Aug, [facility] [place] [facility] [address] [id number], [place] [address]- 9032 Aug, [facility] [place] [facility] [address] [id number], [place] [address]- 9138 06 Aug, 2012 [facility] [place] [facility] [address] [facility] [id number], [place] [address]- 7556 05 Aug, 2012 [facility] [place] [facility] [address] [facility] [id number], [place] [address]- 9143 Jul, [facility] [place] [facility] [address] [id number] [place] [address]- 9559 Jun, [facility] [address] [id number] [place] [address]- 0116 Jun, [facility] [address] [id number] [place] [address]- 7458 16 Jun, 2012 [facility] [address] [id number] [place] [address]- 7653 Jun, [facility] [address] [id number] [place] [address]- 5799 May, [facility] [address] [id number] [place] [address]- 1204 May, [facility] [address] [id number] [place] [address]- 7102 May, [facility] [address] [id number] [place] [address]- 4534 May, [facility] [address] [id number] [place] [address]- 5307 May, [facility] [address] [id number] [place] [address]- 0246 May, [facility] [address] [id number] [place] [address]- 3869 May, [facility] [address] [id number] [place] [address]- 6861 Apr, [facility] [address] [id number] [place] [address]- 0752 Apr, [facility] [address] [id number] [place] [address]- 8014 Apr, [facility] [address] [id number] [place] [address]- 2037 Apr, [facility] [address] [id number] [place] [address]- 5880 Apr, [facility] [place] [facility] [address] [id number] [place] [address]- 1630 Apr, [facility] [place] [facility] [address] [id number] [place] [address] Apr, [facility] [place] [facility] [address] [id number] [place] [address] Mar, [facility] [place] [facility] [address] [id number] [place] [address]- 8115 Mar, [facility] [place] [facility] [address] [id number] [place] [address]92 Mar, [facility] [place] [facility] [address] [id number] [place] [address]- 2207 Mar, [facility] [place] [facility] [address] [id number] [place] [address]- 0388 Mar, [facility] [place] [facility] [address] [id number], [place] [address]- 3450 Mar, [facility] [place] [facility] [address] [id number], [place] [address]- 2106 Mar, [facility] [place] [facility] [address] [id number], [place] [address]- 7860 Mar, [facility] [place] [facility] [address] [facility] [id number], [place] [address]- 4656 Mar, [facility] [place] [facility] [address] [id number], [place] [address]- 0723 Mar, [facility] [place] [facility] [address] [id number], [place] [address]- 1470 Mar, [facility] [place] [facility] [address] [id number], [place] [address]- 4033 Mar, [facility] [place] [facility] [address] [facility] [id number], [place] [address]- 7254 06 Feb, 2012 [facility] [place] [facility] [address] [id number], [place] [address]- 1849 Jan, [facility] [place] [facility] [address] [id number] [place] [address]- 6052 Jan, [facility] [place] [facility] [address] [id number] [place] [address]- 7462 Jan, [facility] [place] [facility] [address] [id number] [place] [address]- 2574 Jan, [facility] [place] [facility] [address] [id number] [place] [address]- 9297 Jan, [facility] [place] [facility] [address] [id number] [place] [address]- 6820 Dec, [facility] [place] [facility] [address] [id number] [place] [address]- 6165 Dec, [facility] [place] [facility] [address] [id number] [place] [address]- 0469 Nov, [facility] [place] [facility] [address] [id number] [place] [address]- 2963 Nov, [facility] [place] [facility] [address] [id number] [place] [address]- 1938 Nov, [facility] [place] [facility] [address] [id number] [place] [address]- 0183 October, [facility] [place] [facility] [address] [id number] [place] [address]- 4309 October, [facility] [place] [facility] [address] [id number] [place] [address]- 9063 October, [facility] [place] [facility] [address] [id number] [place] [address]- 2899 October, [facility] [place] [facility] [address] [id number] [place] [address]- 4811 October, [facility] [place] [facility] [address] [id number] [place] [address]- 2343 October, [facility] [place] [facility] [address] [id number] [place] [address]- 1718 October, [facility] [address] [id number] [place] [address]- 7699 Sep, [facility] [place] [facility] [address] [id number] [place] [address]- 7190 Sep, [facility] [address] [id number] [place] [address]- 2424 Sep, [facility] [address] [id number] [place] [address]- 7680 Sep, [facility] [address] [id number] [place] [address]- 5448 24 Sep, 2011 [facility] [address] [id number] [place] [address]- 5875 Sep, [facility] [address] [id number] [place] [address]- 0845 17 Sep, 2011 [facility] [address] [id number] [place] [address]- 8966 16 Sep, 2011 [facility] [address] [id number] [place] [address]- 5803 16 Sep, 2011 [facility] [address] [id number] [place] [address]- 9880 14 [address], [address] [facility] [place] [facility] [address] [id number] [place] [address]- 4954 13 Sep, 2011 [facility] [address] [id number] [place] [address]- 3843 10 Sep, 2011 [facility] [place] [facility] [address] [id number] [place] [address]- 5971 [address], [address] [facility] [place] [facility] [address] [id number] [place] [address]- 4720 27 Aug, 2011 [facility] [place] [facility] [address] [id number] [place] [address]- 4598 Aug, [facility] [place] [facility] [address] [id number] [place] [address]- 4743 08 Aug, 2011 [facility] [place] [facility] [address] [id number] [place] [address]- 3526 06 Aug, 2011 [facility] [place] [facility] [address] [id number] [place] [address]- 3735 28 Jul, 2011 [facility] [place] [facility] [address] [id number] [place] [address]- 6924 22 Jul, 2011 [facility] [place] [facility] [address] [id number] [place] [address]- 8488 16 Jul, 2011 [facility] [place] [facility] [address] [id number] [place] [address]- 6957 15 Jul, 2011 [facility] [place] [facility] [address] [id number] [place] [address]- 6884 14 Jul, 2011 [facility] [place] [facility] [address] [id number] [place] [address]- 7139 10 Jul, 2011 [facility] [place] [facility] [address] [id number] [place] [address]- 9883 Jun, [facility] [place] [facility] [address] [id number] [place] [address]- 0234 Jun, [facility] [place] [facility] [address] [id number] [place] [address]- 3715 Jun, [facility] [place] [facility] [address] [id number] [place] [address]- 0532 Jun, [facility] [place] [facility] [address] [id number] [place] [address]- 3828 Jun, [facility] [place] [facility] [address] [id number] [place] [address]- 4770 May, [facility] [place] [facility] [address] [id number] [place] [address]- 0459 May, [facility] [place] [facility] [address] [id number] [place] [address]- 2274 14 May, 2011 [facility] [place] [facility] [address] [id number] [place] [address]- 3545 14 May, 2011 [facility] [place] [facility] [address] [id number] [place] [address]- 7529 12 May, 2011 [facility] [place] [facility] [address] [id number] [place] [address]- 7609 07 May, 2011 [facility] [place] [facility] [address] [id number] [place] [address]- 7430 05 May, 2011 [facility] [place] [facility] [address] [id number] [place] [address]- 2119 15 Apr, 2011 [facility] [place] [facility] [address] [id number] [place] [address]- 3833 15 Apr, 2011 [facility] [place] [facility] [address] [id number] [place] [address]- 7680 Apr, [facility] [place] [facility] [address] [id number] [place] [address]- 8411 Apr, [facility] [place] [facility] [address] [id number] [place] [address]- 2702 Apr, [facility] [place] [facility] [address] [facility] [id number] [place] [address]- 9680 Apr, [facility] [place] [facility] [address] [id number] [place] [address]- 7182 Mar, [facility] [place] [facility] [address] [id number] [place] [address]- 5035 Mar, [facility] [place] [facility] [address] [id number] [place] [address]- 3252 Mar, [facility] [place] [facility] [address] [id number] [place] [address]- 5016 Mar, [facility] [place] [facility] [address] [id number] [place] [address]- 8575 Jan, [facility] [address] [id number] [place] [address]- 6886 Dec, [facility] [place] [facility] [address] [id number] [place] [address]- 6536 Dec, [facility] [place] [facility] [address] [id number] [place] [address]- 6724 October, [facility] [place] [facility] [address] [id number] [place] [address]- 4567 Sep, [facility] [address] [id number] [place] [address]- 5001 Sep, [facility] [place] [facility] [address] [id number] [place] [address]- 8293 17 Jul, 2010 [facility] [place] [facility] [address] [id number] [place] [address]- 0547 16 Jul, 2010 [facility] [address] [id number] [place] [address]- 4767 May, [facility] [place] [facility] [address] [id number] [place] [address]- 6048 May, [facility] [place] [facility] [address] [id number] [place] [address]- 5822 May, [facility] [place] [facility] [address] [id number] [place] [address]- 6702 May, [facility] [place] [facility] [address] [id number] [place] [address]- 0611 Apr, [facility] [place] [facility] [address] [id number] [place] [address]- 4607 Apr, [facility] [place] [facility] [address] [id number] [place] [address] Apr, [facility] [place] [facility] [address] [id number] [place] [address] Apr, [facility] [place] [facility] [address] [id number] [place] [address] Apr, [facility] [place] [facility] [address] [id number] [place] [address] 21 Mar, 2010 [facility] [place] [facility] [address] [id number] [place] [address] 14 Mar, 2010 [facility] [place] [facility] [address] [id number] [place] [address] 13 Mar, 2010 [facility] [place] [facility] [address] [id number] [place] [address] 12 Mar, 2010 [facility] [place] [facility] [address] [id number] [place] [address] Jan, [facility] [place] [facility] [address] [id number] [place] [address] 15 Dec, 2009 [facility] [place] [facility] [address] [facility] [id number] [place] [address] 10 Sep, 2009 [facility] [place] [facility] [address] [id number] [place] [address] May, [facility] [place] [facility] [address] [id number] [place] [address] May, [facility] [place] [facility] [address] [facility] [id number] [place] [address] May, [facility] [place] [facility] [address] [facility] [id number] [place] [address] Apr, [facility] [place] [facility] [address] [id number], [place] [address] Apr, [facility] [place] [facility] [address] [id number] [place] [address] Apr, [facility] [place] [facility] [address] [facility] [id number] [place] [address] Apr, [facility] [place] [facility] [address] [facility] [id number][place] [address] Apr, [facility] [place] [facility] [address] [facility] [id number], [place] [address] Mar, [facility] [address] [facility] [id number], [place] [address] Mar, [facility] [address] [facility] [id number], [place] [address] Jul, IMMUNIZATIONS No Known Immunizations SOCIAL HISTORY Never Assessed REASON FOR VISIT Sore throat and denies fever et cough. was in the hospital since saturday et released yesterday. was in there for MRSA in her abdomen. [email or web address] PLAN OF CARE Activity Details Follow Up prn Reason:if symptoms worsen or not improving VITAL SIGNS Height 62 in 2017-12-31 Weight 266.0 lbs 2017-12-31 Temperature 98.0 degrees Fahrenheit 2017-12-31 Heart Rate 86 bpm 2017-12-31 Respiratory Rate 20 2017-12-31 BMI 48.65 kg/m2 2017-12-31 Blood pressure systolic 134 mmHg 2017-12-31 Blood pressure diastolic 82 mmHg 2017-12-31 MEDICATIONS Medication Instructions Dosage Frequency Start Date End Date Duration Status Vitamin D 25106 UNIT Orally per day 1 capsule Active Prozac 40 mg Orally Once a day for depression 1 capsules Active Azithromycin 250 MG Orally Once a day 2 tablets on the first day, then 1 tablet daily for 4 days 24h Dec, Dec, 5 day(s) Active Estradiol 0.5 MG Orally Once a day 2 tablet by Oral route 1 time per day 24h Apr, Active Ondansetron HCl 8 mg 1 tablet by Oral route every 8 hours PRN Jul, Active Ropinirole HCl 4 MG Orally Once a day 1 tablet before bedtime 24h 30 days Active Metronidazole 500 mg Orally Twice a day 1 tablet 12h Active Hydrocodone-Acetaminophen 5-325 MG Orally every 6 hrs 1 tablet as needed 6h Active RESULTS Name Result Date Reference Range STREP A (IN HOUSE) 2017-12-31 STREP A positive Control + Lot # [id number] Exp date 04/09/2020 PROCEDURES Procedure Date Ordered Result Body Site STREP A ASSAY W/OPTIC December 31, 2017 [facility] VISIT ESTABLISHED PATIENT December 31, 2017 INSTRUCTIONS MEDICATIONS ADMINISTERED No Known Medications [...] 08/2017 Surgical History nephrectomy 03/2017 Hospitalization History [facility]ul[facility] 12/20/15 Hospitalization History [facility]- Abd pain 03/07/2017 Hospitalization History [facility]- Abd pain 03/14/2017 Hospitalization History [facility]- No bowel movement, rash 04/13/2017 Hospitalization History [facility]- Abd pain r/t kidney surgery on 04/17/2017 Hospitalization History [facility]- Abd pain r/t kidney surgery on 04/18/2017 Hospitalization History [facility]- Lower abd pain 04/30/2017 Hospitalization History [facility]- Cannot urinate 05/30/2017 Hospitalization History [facility]- Pancreatitis Sx 06/29/2017 Hospitalization History [facility]- Stomach pain 07/22/2017 Hospitalization History [facility]- Left side pain 08/12/2017 Hospitalization History [facility]- Incision site infection 08/30/2017 Hospitalization History [facility]- Post Op Seroma/Hematoma Left Abdomen. Discharged 09/04/17- Dr Daniel 09/02/2017 Hospitalization History [facility]- Right shoulder and back pain 2017 Hospitalization History [facility]- Shoulder/Back pain 11/11/2017 Hospitalization History [facility]- Right shoulder blade pain 12/04/2017 Hospitalization History [facility]- C-Diff 12/13/2017 Hospitalization History C diff et MRSA 12/27/2017
--- OUTSIDE RECORDS SUMMARY | 2018-02-24 14:18 | XMS REPORT ---
Author Author SAI CARMEN [facility] Address [address] [place] [address] Care Team Providers Care Stone Operator Name Role Phone CARMEN GIBBS Unavailable PROBLEMS Type Condition ICD9-CM Code [id number] Code Onset Dates Condition Status SNOMED Code Problem Polydipsia R63.1 Active 84740535 Problem Trichotillomania F63.3 Active 92557026 Problem Atelectasis J98.11 Active 78316822 Problem Intestinal malabsorption, unspecified K90.9 Active 12946987 Problem Chronic fatigue R53.82 Active 76119456 Problem Generalized social phobia F40.11 Active 24823866 Problem Restless leg syndrome G25.81 Active 52359851 Problem Moderate episode of recurrent major depressive disorder F33.1 Active 232992112 Problem Chronic post-traumatic stress disorder (PTSD) F43.12 Active 241803291 Problem History of renal cell carcinoma Z85.528 Active 036950360 Problem Chronic tension-type headache, intractable G44.221 Active 886653694 Problem Nodule of left lung R91.1 Active 966566141 Problem Hirsuties L68.0 Active 963546746 Problem FH: polycystic ovary Z84.2 Active 309591169 Problem Morbid (severe) obesity due to excess calories E66.01 Active 533232717 Problem Chronic pancreatitis K86.1 Active 440192372 Problem Hyperlipidemia, mixed E78.2 Active 808650780 Problem Asthma J45.909 Active 595635403 ALLERGIES No Information ENCOUNTERS Encounter Location Date Diagnosis [facility] [address] [id number] [address] Mar, [facility] [id number] [address] Feb, [facility] [address] [id number] [address] Jan, Acute pain of right knee M25.561 ; Right upper quadrant abdominal pain R10.11 and BMI 45.0-49.9, adult Z68.42 [facility] [id number] [place] [address] 50318- 5311 Jan, [facility] [id number] [place] [address] 09292- 1153 Jan, [facility] [id number] [place] [address] 53469- 9435 Dec, [facility] [id number] [place] [address] 28039- 3406 Dec, Intestinal malabsorption, unspecified K90.9 and Diarrhea, unspecified R19.7 [facility] [id number] [place] [address] 61617- 3809 Dec, [facility] [id number] [place] [address] 54343- 2547 Dec, Strep throat J02.0 ; Intestinal malabsorption, unspecified K90.9 ; Diarrhea, unspecified R19.7 ; Postoperative seroma involving digestive system after non-digestive system procedure K91.873 ; Hyperlipidemia, mixed E78.2 and BMI 45.0-49.9, adult Z68.42 [facility] [id number] [place] [address] 90931- 4194 Dec, [facility] [id number] [place] [address] 91476- 2297 Dec, Nausea R11.0 [facility] [id number] [place] [address] 03309- 8096 Dec, [facility] [id number] [place] [address] 46388 -3293 Dec, Sore throat J02.9 ; Strep throat J02.0 and BMI 45.0-49.9, adult Z68.42 [facility] [id number] [place] [address] 13031- 1011 Dec, [facility] [id number] [address] 7759 Dec, [facility] [id number] [address] 0458 Dec, [facility] [id number] [address] 4938 Dec, [facility] [id number] [address] 6131 Dec, [facility] [id number] [address]- 6737 Dec, [facility] [id number] [address]- 9437 Dec, [facility] [address] [address]- 3605 Dec, [facility] [address] [address] 5019 Dec, Clostridium difficile colitis A04.72 ; Intractable vomiting with nausea, unspecified vomiting type R11.2 and BMI 45.0-49.9, adult Z68.42 [facility] [address] [address]- 3175 Dec, [facility] [address] [address]- 4424 Nov, [facility] [address] [address]- 7100 Nov, [facility] [id number] [address]- 8020 Nov, [facility] [id number] [address]- 8089 Nov, [facility] [id number] [address] Nov, [place] [address] [address]- 1708 Nov, Hyperlipidemia, mixed E78.2 [facility] [id number] [place] [address] 70805 -2867 Nov, Acute suppurative otitis media of right ear without spontaneous rupture of tympanic membrane, recurrence not specified H66.001 and BMI 45.0-49.9, adult Z68.42 [place] [place] [id number] [place] [address] 63975- 6338 Nov, Hyperlipidemia, mixed E78.2 [facility] [place] [id number] [place] [address] 88220- 3123 Nov, [facility] [id number] [place] [address] 46493- 7216 Nov, [address] 76087- 5805 Nov, Nodule of left lung R91.1 [address] [id number] [place] [address] 85269- 1605 Nov, Medicare annual wellness visit, initial Z00.00 [...] adult Z68.42 and Encounter for immunization Z23 [address] [id number] [place] [address] 50078- 3245 October, [id number] [place] [address] 61520- 1592 October, Nodule of left lung R91.1 [id number] [place] [address] 69904- 3525 October, Nodule of left lung R91.1 [facility] [place] [id number] [place] [address] 16555- 1840 October, Recurrent major depressive disorder, in partial remission F33.41 ; Restless leg syndrome G25.81 ; Generalized social phobia F40.11 ; Chronic post-traumatic stress disorder (PTSD) F43.12 ; BMI 45.0-49.9, adult Z68.42 and Trichotillomania F63.3 [place] [id number] [place] [address] 30700- 0659 October, [place] [place] [id number] [place] [address] 66338- 7103 Sep, Chronic fatigue R53.82 and BMI 45.0-49.9, adult Z68.42 [place] [id number] [place] [address] 70195- 2102 Aug, [facility] [id number] [place] [address] 42876- 6436 Jul, Restless leg syndrome G25.81 and B12 deficiency E53.8 [address] [id number] [place] [address] 46193- 1744 Jul, [facility] [id number] [place] [address] 02865- 2570 Jul, [place] [facility] [id number] [place] [address] 93345- 0300 Jun, [facility] [facility] [id number] [place] [address] 10782- 8249 Jun, Fatigue, unspecified type R53.83 ; History of renal cell carcinoma Z85.528 ; Chronic pancreatitis K86.1 ; Restless leg syndrome G25.81 ; Dark urine R82.99 and BMI 45.0-49.9, adult Z68.42 [place] [id number] [place] [address] 94171- 3367 Jun, [facility] [id number] [address]- 7172 Jun, [facility] [address] [address]- 6393 Jun, [facility] [id number] [address]- 3727 Jun, [facility] [address] [address] May, Chronic post-traumatic stress disorder (PTSD) F43.12 ; Moderate episode of recurrent major depressive disorder F33.1 ; Trichotillomania F63.3 and Generalized social phobia F40.11 [facility] [address] [address]- 7235 May, [facility] [address] [address]- 0907 May, Chronic post-traumatic stress disorder (PTSD) F43.12 ; Moderate episode of recurrent major depressive disorder F33.1 ; Trichotillomania F63.3 and Generalized social phobia F40.11 [facility] [id number] [address]- 6369 May, Hyperlipidemia, mixed E78.2 ; Morbid (severe) obesity due to excess calories E66.01 ; Chronic post-traumatic stress disorder (PTSD) F43.12 ; Moderate episode of recurrent major depressive disorder F33.1 ; Trichotillomania F63.3 and Generalized social phobia F40.11 [facility] [id number] [address]- 4502 Apr, [facility] [address] [address]- 0561 Apr, Hyperlipidemia, mixed E78.2 ; Morbid (severe) obesity due to excess calories E66.01 ; Chronic post-traumatic stress disorder (PTSD) F43.12 ; Moderate episode of recurrent major depressive disorder F33.1 ; Trichotillomania F63.3 and Generalized social phobia F40.11 [facility] [id number] [place] [address] 54081- 7201 Apr, Trichotillomania F63.3 ; Generalized social phobia F40.11 ; Chronic post-traumatic stress disorder (PTSD) F43.12 and Moderate episode of recurrent major depressive disorder F33.1 [place] [id number] [place] [address] 08571- 5978 Apr, [facility] [id number] [place] [address] 08469- 3413 Apr, [place] [id number] [place] [address] 50406- 2291 Mar, Moderate episode of recurrent major depressive disorder F33.1 ; Trichotillomania F63.3 ; Chronic post-traumatic stress disorder (PTSD) F43.12 ; Generalized social phobia F40.11 and Restless leg syndrome G25.81 [place] [id number] [place] [address] 85604- 7537 Mar, [place] [address] 81830- 1262 Mar, [place] [id number] [place] [address] 90605- 1933 Feb, Left kidney mass N28.89 [place] [id number] [place] [address] 16404- 4971 Jan, [place] [id number] [place] [address] 23707- 0650 Dec, Polydipsia R63.1 ; Chronic pancreatitis K86.1 and Fatigue, unspecified type R53.83 [facility] [id number] [place] [address] 92932- 1880 Nov, [place] [id number] [place] [address] 27810- 2484 Nov, [place] [id number] [place] [address] 13888- 3963 Nov, Headache around the eyes R51 [facility] [id number] [place] [address] 11937- 7444 Nov, [facility] [id number] [place] [address] 17982- 4987 October, STD exposure Z20.2 [facility] [id number] [place] [address] 79861- 3205 October, STD exposure Z20.2 [facility] [id number] [place] [address] 154091- 5151 October, Chronic post-traumatic stress disorder (PTSD) F43.12 ; Generalized social phobia F40.11 ; Trichotillomania F63.3 and Restless leg syndrome G25.81 [place] [id number] [place] [address] 17514- 7582 October, [facility] [id number] [place] [address] 84565- 6280 Sep, [facility] [id number] [place] [address] 54814- 8981 Aug, [facility] [id number] [place] [address] 57970- 1147 Aug, [place] [id number] [place] [address] 35954- 3949 Aug, Neck mass R22.1 [place] [id number] [place] [address] 80409- 3493 Aug, Atelectasis J98.11 [place] [id number] [place] [address] 42522- 0454 28 Jul, 2016 Hyperlipidemia, mixed E78.2 ; Atypical pneumonia J18.9 and Neck mass R22.1 [place] [id number] [place] [address] 77516- 7407 15 Jul, 2016 Hemoptysis R04.[id number] [place] [address] 22502- 9706 08 Jul, 2016 Acute non-recurrent pansinusitis J01.40 ; Hemoptysis R04.2 ; Polydipsia R63.1 and Malaise R53.81 [facility] [place] [id number] [place] [address] 35879 -5080 May, Other viral agents as the cause of diseases classified elsewhere B97.89 and Acute upper respiratory infection, unspecified J06.9 [facility] [id number] [place] [address] 93674 -0946 Mar, Nausea R11.0 [facility] [place] [id number] [place] [address] 63892 -9710 Dec, Hives L50.9 [address] [id number] [place] [address] 22242- 0748 Dec, [facility] [address] [id number] [place] [address] 99823 -8204 Dec, Cutaneous abscess of limb, unspecified L02.419 ; Cellulitis of unspecified part of limb L03.119 ; Encounter for incision and drainage procedure Z01.89 and Encounter for recheck of abscess following incision and drainage Z09 [facility] [id number] [place] [address] 00754 -5542 Dec, Abscess of leg, right L02.415 [place] [id number] [place] [address] 41964- 0880 08 Dec, 2015 Cellulitis of unspecified part of limb L03.119 and Cutaneous abscess of limb, unspecified L02.419 [place] [id number] [place] [address] 19360- 1564 Dec, [place] [id number] [place] [address] 94040- 8562 Dec, [facility] [id number] [place] [address] 88381 -8061 Aug, [facility] [id number] [place] [address] 19549- 6636 Aug, [facility] [id number] [place] [address] 97045 -3051 04 Jul, 2015 Pain in unspecified wrist M25.539 and Back pain, thoracic M54.6 [facility] [id number] [place] [address] 52666 -1082 13 Jun, 2015 Strain of right wrist, initial encounter S66.911A [place] [address] 48620- 6734 Jun, Chronic pancreatitis, unspecified pancreatitis type K86.1 ; Hirsuties L68.0 ; Morbid (severe) obesity due to excess calories E66.01 ; Chronic pancreatitis K86.1 and Asthma J45.909 [place] [id number] [place] [address] 09520- 7008 May, [place] [id number] [place] [address] 92262- 2811 May, Hyperlipidemia, mixed E78.2 and Muscle spasm of back M62.830 [place] [id number] [place] [address] 07898- 6991 Apr, [place] [id number] [place] [address] 63129- 6600 Apr, Torticollis M43.6 [place] [id number] [place] [address] 69831- 2962 Apr, Right-sided thoracic back pain M54.6 [place] [id number] [place] [address] 95856- 1252 Mar, Rash R21 [place] [id number] [place] [address] 86526- 8558 Mar, [place] [address] [address]- 4022 Jan, [facility] [id number] [place] [address] 054617- 7065 Dec, [facility] [id number]- 4536 Dec, Urinary frequency 788.41 and Nocturia more than twice per night 788.43 [facility] [id number] [place] [address] 86198- 2199 Nov, [facility] [id number] [place] [address] 244594- 5534 Nov, [facility] [id number] [place] [address] 01360- 1469 Nov, Abdominal pain 789.00 [facility] [id number] [place] [address] 62213- 6747 October, TDAP DX V06.1 [facility] [id number] [place] [address] 64770- 4619 October, [facility] [id number] [place] [address] 401344- 6796 October, Disturbance of skin sensation 782.0 ; Wrist pain, right 719.43 ; Hyperlipidemia 272.4 and Skin lesion of face 709.9 [facility] [address] [address]- 2688 Sep, [facility] [address] [address]- 9598 Sep, [facility] [id number] [place] [address] 893999- 4831 Aug, [facility] [address] [address]- 4140 Aug, [facility] [id number] [place] [address] 51837648- 8619 23 Aug, 2014 [facility] [place] [facility] [address] [id number] [place] [address]- 2427 23 Aug, 2014 [facility] [place] [facility] [address] [id number] [place] [address]- 8888 16 Aug, 2014 [facility] [place] [facility] [address] [id number] [place] [address]- 3072 16 Aug, 2014 [facility] [place] [facility] [address] [id number] [place] [address]- 2078 14 Aug, 2014 [facility] [place] [facility] [address] [id number] [place] [address]- 2972 14 Aug, 2014 [facility] [place] [facility] [address] [id number] [place] [address]- 8595 Aug, [facility] [place] [facility] [address] [id number] [place] [address]- 2963 Aug, [facility] [place] [facility] [address] [id number] [place] [address]- 0241 04 Aug, 2014 [facility] [place] [facility] [address] [id number] [place] [address]- 4236 Aug, [facility] [place] [facility] [address] [id number] [place] [address]- 4680 Aug, [facility] [place] [facility] [address] [id number] [place] [address]- 6242 Aug, [facility] [place] [facility] [address] [id number] [address]- 0333 Jul, 2014 [facility] [place] [facility] [address] [id number] [place] [address]- 8225 Jul, 2014 [facility] [place] [facility] [address] [id number] [place] [address]- 3518 Jul, 2014 [facility] [place] [facility] [address] [id number] [place] [address]- 2334 Jul, [facility] [place] [facility] [address] [id number] [place] [address]- 3892 Jul, [facility] [address] [id number] [place] [address]- 8594 Jul, [facility] [address] [id number] [place] [address]- 1130 Jun, [facility] [address] [id number] [place] [address]- 2188 Jun, [facility] [address] [id number] [place] [address]- 5103 Jun, [facility] [address] [id number] [place] [address]- 5992 Jun, [facility] [address] [id number] [place] [address]- 0896 Jun, [facility] [address] [id number] [place] [address]- 4076 Jun, [facility] [address] [id number] [place] [address]- 8474 Jun, [facility] [address] [id number] [place] [address]- 4017 Jun, [facility] [address] [id number] [place] [address]- 7328 May, [facility] [place] [facility] [address] [id number] [place] [address]- 6375 May, [facility] [address] [id number] [place] [address]- 9531 18 May, 2014 [facility] [place] [facility] [address] [id number] [place] [address]- 2054 18 May, 2014 [facility] [place] [facility] [address] [id number] [place] [address]- 6990 15 May, 2014 [facility] [place] [facility] [address] [id number] [place] [address]- 1728 May, [facility] [place] [facility] [address] [id number] [place] [address]- 7642 May, [facility] [place] [facility] [address] [id number] [place] [address]- 4487 May, [facility] [place] [facility] [address] [id number] [place] [address]- 1409 May, [facility] [place] [facility] [address] [id number] [place] [address]- 0639 May, [facility] [place] [facility] [address] [id number] [place] [address]- 5333 May, [facility] [place] [facility] [address] [id number] [place] [address]- 4917 May, [facility] [place] [facility] [address] [id number] [place] [address]- 3901 Apr, [facility] [place] [facility] [address] [id number] [place] [address]- 2115 Apr, [facility] [place] [facility] [address] [id number] [place] [address] Apr, [facility] [place] [facility] [address] [id number] [place] [address] Apr, [facility] [place] [facility] [address] [id number] [place] [address] Apr, [facility] [place] [facility] [address] [id number] [place] [address] Apr, [facility] [place] [facility] [address] [id number] [place] [address] Apr, [facility] [place] [facility] [address] [id number] [place] [address] Apr, [facility] [place] [facility] [address] [id number] [place] [address] Apr, [facility] [place] [facility] [address] [id number] [place] [address] Apr, [facility] [place] [facility] [address] [id number] [place] [address] Apr, [facility] [place] [facility] [address] [id number] [place] [address] Apr, [facility] [place] [facility] [address] [id number] [place] [address] Mar, [facility] [place] [facility] [address] [id number] [place] [address] Mar, [facility] [place] [facility] [address] [id number] [place] [address] Mar, [facility] [place] [facility] [address] [id number] [place] [address] Mar, [facility] [place] [facility] [address] [id number] [place] [address] 10 Feb, 2014 [facility] [place] [facility] [address] [id number] [place] [address] 10 Feb, 2013 [facility] [place] [facility] [address] [id number] [place] [address] 05 Feb, 2013 [facility] [place] [facility] [address] [id number] [place] [address] 05 Feb, 2013 [facility] [place] [facility] [address] [id number] [place] [address] Feb, 2013 [facility] [place] [facility] [address] [id number] [place] [address] Feb, 2013 [facility] [place] [facility] [address] [id number] [place] [address] Jan, [facility] [place] [facility] [address] [id number] [place] [address] Jan, [facility] [place] [facility] [address] [id number] [place] [address] Jan, [facility] [place] [facility] [address] [id number] [facility] [place] [address] Jan, [facility] [place] [facility] [address] [id number] [facility] [place] [address] Jan, [facility] [place] [facility] [address] [id number] [place] [address] Jan, [facility] [place] [facility] [address] [id number] [place] [address] Jan, [facility] [place] [facility] [address] [id number] [place] [address] Jan, [facility] [place] [facility] [address] [id number] [place] [address] Jan, [facility] [place] [facility] [address] [id number] [place] [address] 64[address] Jan, [facility] [place] [facility] [address] [id number] [place] [address]- 4048 Jan, [facility] [place] [facility] [address] [id number] [place] [address] 7626 Jan, [facility] [place] [facility] [address] [id number] [place] [address]- 7673 Jan, [facility] [place] [facility] [address] [id number] [place] [address]- 9821 Jan, [facility] [place] [facility] [address] [id number] [place] [address]- 7134 Dec, [facility] [place] [facility] [address] [id number] [place] [address] 5226 Dec, [facility] [place] [facility] [address] [id number] [place] [address]- 2778 Dec, [facility] [place] [facility] [address] [id number] [place] [address] Dec, [facility] [place] [facility] [address] [id number] [place] [address]- 3755 Nov, [facility] [place] [facility] [address] [id number] [place] [address]- 9038 Nov, [facility] [place] [facility] [address] [id number] [place] [address]- 8844 Nov, [facility] [place] [facility] [address] [id number] [place] [address]- 8199 Nov, [facility] [place] [facility] [address] [id number] [place] [address]- 3528 Nov, [facility] [place] [facility] [address] [id number] [place] [address]- 8176 October, [facility] [place] [facility] [address] [id number] [place] [address]- 1261 October, [facility] [place] [facility] [address] [id number] [place] [address]- 2854 October, [facility] [place] [facility] [address] [id number] [place] [address]- 5759 October, [facility] [place] [facility] [address] [id number] [place] [address]- 6712 October, [facility] [place] [facility] [address] [id number] [place] [address]- 1488 October, [facility] [place] [facility] [address] [id number] [place] [address]- 1868 October, [facility] [place] [facility] [address] [id number] [place] [address]- 3144 October, [facility] [place] [facility] [address] [id number] [place] [address]- 4771 October, [facility] [place] [facility] [address] [id number] [place] [address]- 9804 October, [facility] [place] [facility] [address] [id number] [place] [address]- 1735 October, [facility] [place] [facility] [address] [id number] [place] [address]- 9522 October, [facility] [place] [facility] [address] [id number] [place] [address]- 5633 October, [facility] [place] [facility] [address] [id number] [place] [address]- 9086 October, [facility] [place] [facility] [address] [id number] [place] [address]- 3431 Sep, [facility] [place] [facility] [address] [id number] [place] [address]- 6158 Sep, [facility] [place] [facility] [address] [id number] [place] [address]- 5886 Sep, [facility] [place] [facility] [address] [id number] [place] [address]- 4178 Sep, [facility] [place] [facility] [address] [id number] [place] [address]- 3380 Sep, [facility] [place] [facility] [address] [id number] [place] [address]- 4112 Sep, [facility] [place] [facility] [address] [id number] [place] [address]- 2415 Sep, [facility] [place] [facility] [address] [id number] [place] [address]- 0075 Sep, [facility] [place] [facility] [address] [id number] [place] [address]- 8290 Sep, [facility] [place] [facility] [address] [id number] [place] [address]- 7202 Sep, [facility] [place] [facility] [address] [id number] [place] [address]- 2322 Sep, [facility] [place] [facility] [address] [id number] [place] [address]- 5365 Sep, [facility] [place] [facility] [address] [id number] [place] [address]- 3885 Sep, [facility] [place] [facility] [address] [id number] [place] [address]- 0183 Sep, [facility] [place] [facility] [address] [id number] [place] [address]- 6006 Sep, [facility] [place] [facility] [address] [id number] [place] [address]- 2147 Aug, [facility] [place] [facility] [address] [id number] [place] [address]- 9609 Aug, [facility] [place] [facility] [address] [id number] [place] [address]- 9225 Aug, [facility] [place] [facility] [address] [id number] [place] [address]- 1475 Aug, [facility] [place] [facility] [address] [id number] [place] [address]- 9847 Jul, [facility] [place] [facility] [address] [id number] [place] [address]- 8994 Jul, [facility] [place] [facility] [address] [id number] [place] [address]- 8898 Jul, [facility] [place] [facility] [address] [id number] [place] [address]- 7043 Jul, [facility] [place] [facility] [address] [id number] [place] [address]- 2100 Jun, [facility] [place] [facility] [address] [id number] [place] [address]- 5837 Jun, [facility] [place] [facility] [address] [id number] [place] [address]- 7433 Jun, [facility] [place] [facility] [address] [id number] [place] [address]- 0473 Jun, [facility] [place] [facility] [address] [id number] [place] [address]- 0988 Jun, [facility] [place] [facility] [address] [id number] [place] [address]- 2758 10 Jun, 2013 [facility] [address] [id number] [place] [address] Jun, [facility] [place] [facility] [address] [id number] [place] [address]- 0252 08 Jun, 2013 [facility] [address] [id number] [place] [address]- 1680 20 May, 2013 [facility] [place] [facility] [address] [id number] [place] [address]- 4939 20 May, 2013 [facility] [address] [id number] [place] [address]- 2453 18 May, 2013 [facility] [place] [facility] [address] [id number] [place] [address]- 9136 18 May, 2013 [facility] [address] [id number] [place] [address]- 2057 17 May, 2013 [facility] [address] [facility] [id number] [id number] 17 May, 2013 [facility] [place] [facility] [address] [id number] [place] [address]- 5606 17 May, 2013 [facility] [place] [facility] [address] [id number] [place] [address]- 7249 17 May, 2013 [facility] [place] [facility] [address] [id number] [place] [address]- 1469 16 May, 2013 [facility] [place] [facility] [address] [id number] [place] [address]- 2627 16 May, 2013 [facility] [place] [facility] [address] [id number] [place] [address]- 7226 14 May, 2013 [facility] [place] [facility] [address] [id number] [place] [address]- 0476 14 May, 2013 [facility] [place] [facility] [address] [id number] [place] [address]- 9065 13 May, 2013 [facility] [place] [facility] [address] [id number] [place] [address]- 8501 13 May, 2013 [facility] [address] [id number] [place] [address]- 4377 May, [facility] [place] [facility] [address] [id number] [place] [address]- 6382 May, [facility] [address] [id number] [place] [address]- 1966 May, [facility] [place] [facility] [address] [id number] [place] [address]- 3392 May, [facility] [address] [id number] [place] [address]- 3128 Apr, [facility] [place] [facility] [address] [id number] [place] [address]- 6356 Apr, [facility] [place] [facility] [address] [id number] [place] [address]- 7838 Apr, [facility] [address] [id number] [place] [address]- 2950 Apr, [facility] [place] [facility] [address] [id number] [place] [address]- 8268 Aug, [facility] [address] [id number] [place] [address]- 4426 Aug, [facility] [place] [facility] [address] [id number] [place] [address]- 3282 Aug, [facility] [place] [facility] [address] [id number] [place] [address]- 3181 05 Aug, 2012 [facility] [place] [facility] [address] [id number] [place] [address]- 5070 04 Jul, 2012 [facility] [place] [facility] [address] [id number] [place] [address]- 1499 Jun, [facility] [place] [facility] [address] [id number] [place] [address]- 9185 Jun, [facility] [address] [id number] [place] [address]- 8280 Jun, [facility] [place] [facility] [address] [id number] [place] [address]- 7886 Jun, [facility] [place] [facility] [address] [facility] [id number] [place] [address]10 May, [facility] [place] [facility] [address] [id number] [place] [address]- 3643 May, [facility] [place] [facility] [address] [id number] [place] [address]- 8679 May, [facility] [place] [facility] [address] [id number] [place] [address]- 2888 May, [facility] [place] [facility] [address] [id number] [place] [address]- 6578 May, [facility] [place] [facility] [address] [id number] [place] [address]- 4345 May, [facility] [place] [facility] [address] [id number] [place] [address]- 8415 May, [facility] [place] [facility] [address] [id number] [place] [address]- 0702 Apr, [facility] [place] [facility] [address] [id number] [address]- 3439 Apr, [facility] [place] [facility] [address] [id number] [place] [address]- 3625 Apr, [facility] [place] [facility] [address] [id number] [place] [address]- 1416 Apr, [facility] [place] [facility] [address] [id number] [place] [address]- 3362 Apr, [facility] [place] [facility] [address] [facility] [id number] [place] [address]- 1203 Apr, [facility] [place] [facility] [address] [id number] [place] [address]- 2545 Apr, [facility] [place] [facility] [address] [id number] [place] [address]- 0298 Mar, 2011 [facility] [place] [facility] [address] [id number] [place] 1390 Mar, [facility] [place] [facility] [address] [id number] [place] [address]- 5604 Mar, [facility] [place] [facility] [address] [id number] [place] [address]- 4756 Mar, [facility] [place] [facility] [address] [id number] [place] 9968 Mar, [facility] [place] [facility] [address] [id number] [place] [address]- 2952 Mar, [facility] [place] [facility] [address] [id number] [place] [address]- 5074 Mar, [facility] [place] [facility] [address] [id number] [place] [address]- 1850 Mar, [facility] [place] [facility] [address] [id number] [place] [address]- 7244 Mar, [facility] [place] [facility] [address] [facility] [id number] [place] [address]- 6388 15 Mar, 2012 [facility] [place] [facility] [address] [id number] [place] [address]- 4222 Mar, [facility] [place] [facility] [address] [id number] [place] [address]- 1831 Mar, [facility] [place] [facility] [address] [id number] [place] [address]- 8213 06 Feb, 2012 [facility] [place] [facility] [address] [id number] [place] [address]- 5869 Jan, [facility] [place] [facility] [address] [id number] [place] [address]- 1978 Jan, [facility] [place] [facility] [address] [id number] [place] [address]- 0963 Jan, [facility] [place] [facility] [address] [id number] [place] [address]- 8870 Jan, [facility] [place] [facility] [address] [id number] [place] [address]- 1908 Jan, [facility] [place] [facility] [address] [id number] [place] [address]- 8142 Dec, [facility] [address] [id number] [place] [address]- 2706 Dec, [facility] [place] [facility] [address] [id number] [place] [address]- 3707 Nov, [facility] [address] [id number] [place] [address]- 0759 Nov, [facility] [address] [id number] [place] [address]- 1455 Nov, [facility] [place] [facility] [address] [id number] [place] [address]- 7609 October, [facility] [address] [id number] [place] [address]- 3888 October, [facility] [place] [facility] [address] [id number] [place] [address]- 3084 October, [facility] [place] [facility] [address] [id number] [place] [address]- 7201 October, [facility] [place] [facility] [address] [id number] [place] [address]- 4926 October, [facility] [place] [facility] [address] [id number] [place] [address]- 8653 October, [facility] [place] [facility] [address] [id number] [place] [address]- 6946 October, [facility] [place] [facility] [address] [id number] [place] [address]- 7966 26 Sep, 2011 [facility] [place] [facility] [address] [id number] [place] [address]- 8225 26 Sep, 2011 [facility] [place] [facility] [address] [id number] [place] [address]- 5418 26 Sep, 2011 [facility] [place] [facility] [address] [id number] [place] [address]- 3056 25 Sep, 2011 [facility] [place] [facility] [address] [id number] [place] [address]- 8074 24 Sep, 2011 [facility] [place] [facility] [address] [id number] [place] [address]- 2118 19 Sep, 2011 [facility] [place] [facility] [address] [id number] [place] [address]- 8676 17 Sep, 2011 [facility] [place] [facility] [address] [id number] [place] [address]- 0351 16 Sep, 2011 [facility] [place] [facility] [address] [id number] [place] [address]- 6420 16 Sep, 2011 [facility] [place] [facility] [address] [id number] [place] [address]- 8113 14 Sep, 2011 [facility] [place] [facility] [address] [id number] [place] [address]- 0012 13 Sep, 2011 [facility] [place] [facility] [address] [id number] [place] [address]- 8493 10 Sep, 2011 [facility] [place] [facility] [address] [id number] [place] [address]- 7960 09 Sep, 2011 [facility] [place] [facility] [address] [id number] [place] [address]- 6307 27 Aug, 2011 [facility] [place] [facility] [address] [id number] [place] [address]- 3933 12 Aug, 2011 [facility] [place] [facility] [address] [id number] [place] [address]- 8362 08 Aug, 2011 [facility] [place] [facility] [address] [id number] [place] [address]- 8245 Aug, [facility] [place] [facility] [address] [id number] [place] [address]- 5096 28 Jul, 2011 [facility] [place] [facility] [address] [id number] [place] [address]- 4976 22 Jul, 2011 [facility] [place] [facility] [address] [id number] [place] [address]- 7626 16 Jul, 2011 [facility] [place] [facility] [address] [id number] [place] [address] 2546 15 Jul, 2011 [facility] [place] [facility] [address] [id number] [place] [address]- 4476 14 Jul, 2011 [facility] [place] [facility] [address] [id number] [place] [address]- 8284 10 Jul, 2011 [facility] [place] [facility] [address] [id number] [place] [address]- 5916 Jun, [facility] [place] [facility] [address] [id number] [place] [address]- 2071 Jun, [facility] [place] [facility] [address] [id number] [place] [address]- 4500 Jun, [facility] [place] [facility] [address] [id number] [place] [address]- 2422 Jun, [facility] [place] [facility] [address] [id number] [place] [address]- 1451 Jun, [facility] [place] [facility] [address] [id number] [place] [address]- 8226 May, [facility] [place] [facility] [address] [id number] [place] [address] 2546 May, [facility] [place] [facility] [address] [id number] [place] [address]- 7504 May, [facility] [place] [facility] [address] [id number] [place] [address]- 0766 14 May, 2011 [facility] [place] [facility] [address] [id number] [place] [address]- 6435 12 May, 2011 [facility] [place] [facility] [address] [id number] [place] [address]- 0972 May, [facility] [place] [facility] [address] [id number] [place] [address]- 1950 May, [facility] [place] [facility] [address] [id number] [place] [address]- 1989 Apr, [facility] [place] [facility] [address] [id number] [place] [address]- 2508 Apr, [facility] [place] [facility] [address] [id number] [place] [address]- 1079 Apr, [facility] [place] [facility] [address] [id number] [place] [address]- 0556 Apr, [facility] [place] [facility] [address] [id number] [place] [address]- 0333 Apr, [facility] [place] [facility] [address] [id number] [place] [address]- 5678 Apr, [facility] [place] [facility] [address] [id number] [place] [address]- 4206 Mar, [facility] [place] [facility] [address] [id number] [place] [address]- 0536 Mar, [facility] [place] [facility] [address] [id number] [place] [address]- 4457 Mar, [facility] [place] [facility] [address] [id number] [place] [address]- 3824 Mar, [facility] [place] [facility] [address] [id number] [place] [address]- 2572 Jan, [facility] [place] [facility] [address] [id number] [place] [address]- 3736 Dec, [facility] [place] [facility] [address] [id number] [place] [address]- 2710 13 Dec, 2010 [facility] [address] [id number] [place] [address]- 9966 11 Oct, 2010 [facility] [place] [facility] [address] [id number] [place] [address] 20 Sep, 2010 [facility] [address] [id number] [place] [address] 14 Sep, 2010 [facility] [address] [id number] [place] [address] 17 Jul, 2010 [facility] [address] [id number] [place] [address], [place] [address] 16 Jul, 2010 [facility] [address] [id number] [place] [address] 31 May, 2010 [facility] [address] [id number] [place] [address] 254 May, [facility] [address] [id number] [place] [address] 08 May, 2010 [facility] [address] [id number] [place] [address] May, [facility] [address] [id number] [place] [address] Apr, [facility] [place] [facility] [address] [id number] [place] [address] Apr, [facility] [address] [id number] [place] [address] Apr, [facility] [place] [facility] [address] [id number] [place] [address] Apr, [facility] [place] [facility] [address] [id number] [place] [address] 25[address] Apr, [facility] [address] [id number] [place] [address] Mar, [facility] [place] [facility] [address] [id number] [place] [address] 14 Mar, 2010 [facility] [place] [facility] [address] [id number] [place] [address] 13 Mar, 2010 [facility] [place] [facility] [address] [id number] [place] [address] 12 Mar, 2010 [facility] [place] [facility] [address] [id number] [place] [address] 20 Jan, 2010 [facility] [place] [facility] [address] [id number] [place] [address] 37[address] 15 Dec, 2009 [facility] [place] [facility] [address] [id number] [address] 10 Sep, 2009 [facility] [place] [facility] [address] [id number] [place] [address] 08 May, 2009 [facility] [place] [facility] [address] [id number] [address] 06 May, 2009 [facility] [place] [facility] [address] [id number] [address] May, [facility] [place] [facility] [address] [id number] [place] [address] 17 Apr, 2009 [facility] [place] [facility] [address] [id number] [address] 17 Apr, 2009 [facility] [place] [facility] [address] [id number] [place] [address] 10 Apr, 2009 [facility] [place] [facility] [address] [id number] [place] [address] 10 Apr, 2009 [facility] [place] [facility] [address] [id number] [place] [address] 09 Apr, 2009 [facility] [place] [facility] [address] [id number] [place] [address] 15 Mar, 2009 [facility] [place] [facility] [address] [id number] [place] [address] Mar, [facility] [address] [id number] [place] [address] Jul, IMMUNIZATIONS Vaccine Route Administration Date Status ZOFRAN (IM) 2 MG/ML (PER 1 MG) 40 MG/20 ML IM Intramuscular December 31, 2017 Administered SOCIAL HISTORY Never Assessed REASON FOR VISIT Triage - nausea----DBennettRN, pt is requesting injection, states she is unable to take medication d/t nausea. Ok'd per Dr. Lucas for zofran 8mg IM x1. PLAN OF CARE VITAL SIGNS MEDICATIONS Unknown Medications RESULTS No Results PROCEDURES Procedure Date Ordered Result Body Site ZOFRAN (IM) 2 MG/ML (PER 1 MG) 40 MG/20 ML December 31, 2017 THER/PROPH/DIAG INJ, SC/IM December 31, 2017 INSTRUCTIONS MEDICATIONS ADMINISTERED No [...] Surgical History nephrectomy 03/2017 Hospitalization History Cellulitis-[facility] 12/20/15 Hospitalization [facility]- Abd pain 03/07/2017 [facility]- Abd pain 03/14/2017 [facility]- No bowel movement, rash 04/13/2017 [facility]- Abd pain r/t kidney surgery on 04/17/2017 Hospitalization [facility]- Abd pain r/t kidney surgery on 04/18/2017 Hospitalization History [facility]- Lower abd pain 04/30/2017 Hospitalization History [facility]- Cannot urinate 05/30/2017 Hospitalization History [facility]- Pancreatitis Sx 06/29/2017 Hospitalization History [facility]- Stomach pain 07/22/2017 Hospitalization History [facility]- Left side pain 08/12/2017 Hospitalization History [facility]- Incision site infection 08/30/[address] [facility]- Post Op Seroma/Hematoma Left Abdomen. Discharged 09/04/17- Dr Daniel 09/02/2017 Hospitalization History [facility]- Right shoulder and back pain 2017 Hospitalization History [facility]- Shoulder/Back pain 11/11/2017 Hospitalization History [facility]- Right shoulder blade pain 12/04/2017 Hospitalization History [facility]- C-Diff 12/13/2017 Hospitalization History C diff et MRSA 12/27/2017
--- OUTSIDE RECORDS SUMMARY | 2018-02-24 14:19 | XMS REPORT ---
Author Author SAI CARMEN [facility] Address [address] [place] [address] Care Team Providers Care Strap Setter Name Role Phone CARMEN GIBBS Unavailable PROBLEMS Type Condition ICD9-CM Code QED65-CR Code Onset Dates Condition Status SNOMED Code Problem Polydipsia R63.1 Active 99722692 Problem Trichotillomania F63.3 Active 06635401 Problem Atelectasis J98.11 Active 49774600 Problem Intestinal malabsorption, unspecified K90.9 Active 50770469 Problem Chronic fatigue R53.82 Active 34302532 Problem Generalized social phobia F40.11 Active 39479448 Problem Restless leg syndrome G25.81 Active 10817477 Problem Moderate episode of recurrent major depressive disorder F33.1 Active 291627760 Problem Chronic post-traumatic stress disorder (PTSD) F43.12 Active 699819291 Problem History of renal cell carcinoma Z85.528 Active 997919648 Problem Chronic tension-type headache, intractable G44.221 Active 330767609 Problem Nodule of left lung R91.1 Active 267069126 Problem Hirsuties L68.0 Active 242940316 Problem FH: polycystic ovary Z84.2 Active 094811163 Problem Morbid (severe) obesity due to excess calories E66.01 Active 170859850 Problem Chronic pancreatitis K86.1 Active 852309193 Problem Hyperlipidemia, mixed E78.2 Active 732959884 Problem Asthma J45.909 Active 372343504 ALLERGIES No Information ENCOUNTERS Encounter Location Date Diagnosis [facility] [address] [facility] [id number] [address] Mar, [facility] [address] [id number] [address] Feb, [facility] [address] [id number] [address] Jan, Acute pain of right knee M25.561 ; Right upper quadrant abdominal pain R10.11 and BMI 45.0-49.9, adult Z68.42 [facility] [id number] [place] [address] 97085- 6232 Jan, [facility] [id number] [place] [address] 55008- 8709 Jan, [facility] [id number] [place] [address] 73150- 0953 Dec, [facility] [id number] [place] [address] 77762- 6629 Dec, Intestinal malabsorption, unspecified K90.9 and Diarrhea, unspecified R19.7 [place] [id number] [place] [address] 10210- 4796 Dec, [facility] [id number] [place] [address] 34501- 6991 Dec, Strep throat J02.0 ; Intestinal malabsorption, unspecified K90.9 ; Diarrhea, unspecified R19.7 ; Postoperative seroma involving digestive system after non-digestive system procedure K91.873 ; Hyperlipidemia, mixed E78.2 and BMI 45.0-49.9, adult Z68.42 [facility] [id number] [place] [address] 15974- 7248 Dec, [facility] [id number] [place] [address] 82073- 9993 Dec, Nausea R11.0 [facility] [id number] [place] [address] 34595- 6029 Dec, [facility] [id number] [place] [address] 07331 -8284 Dec, Sore throat J02.9 ; Strep throat J02.0 and BMI 45.0-49.9, adult Z68.42 [facility] [id number] [place] [address] 62554- 5827 Dec, [facility] [id number] [place] [address] 0[address] Dec, [facility] [address], [place] [address] 2178 Dec, [facility] [id number] [place] [address] 4716 Dec, [facility] [address], [place] [address]- 8193 Dec, [facility] [id number] [place] [address]- 3657 Dec, [facility] [address], [place] [address]- 5273 Dec, [facility] [address], [place] [address]- 0779 Dec, [facility] [address], [place] [address]- 2868 Dec, Clostridium difficile colitis A04.72 ; Intractable vomiting with nausea, unspecified vomiting type R11.2 and BMI 45.0-49.9, adult Z68.42 [facility] [address], [place] [address] 2119 Dec, [facility] [address], [place] [address]- 0485 Nov, [facility] [address], [place] [address]- 3874 Nov, [facility] [address], [place] [address]- 8590 Nov, [facility] [address], [place] [address]- 4652 Nov, [facility] [address], [place] [address] Nov, [place] [address], [place] [address]- 2462 Nov, Hyperlipidemia, mixed E78.2 [facility] [id number] [place] [address] 63762 -1410 Nov, Acute suppurative otitis media of right ear without spontaneous rupture of tympanic membrane, recurrence not specified H66.001 and BMI 45.0-49.9, adult Z68.42 [place] [id number] [place] [address] 24652- 0344 Nov, Hyperlipidemia, mixed E78.2 [place] [id number] [place] [address] 77865- 0406 Nov, [place] [id number] [place] [address] 81254- 0309 Nov, [address] 07662- 5318 Nov, Nodule of left lung R91.1 [address] [id number] [place] [address] 51965- 7753 Nov, Medicare annual wellness visit, initial Z00.00 [...] and Encounter for immunization Z23 [place] [id number] [place] [address] 04398- 2457 October, [address] [id number] [place] [address] 19318- 3423 October, Nodule of left lung R91.1 [place] [id number] [place] [address] 29234- 5743 October, Nodule of left lung R91.1 [place] [id number] [place] [address] 96995- 4164 October, Recurrent major depressive disorder, in partial remission F33.41 ; Restless leg syndrome G25.81 ; Generalized social phobia F40.11 ; Chronic post-traumatic stress disorder (PTSD) F43.12 ; BMI 45.0-49.9, adult Z68.42 and Trichotillomania F63.3 [place] [id number] [place] [address] 50410- 7543 October, [place] [id number] [place] [address] 31230- 4463 Sep, Chronic fatigue R53.82 and BMI 45.0-49.9, adult Z68.42 [place] [id number] [place] [address] 89095- 3513 Aug, [place] [id number] [place] [address] 51192- 9898 Jul, Restless leg syndrome G25.81 and B12 deficiency E53.8 [place] [id number] [place] [address] 42257- 5661 Jul, [place] [id number] [place] [address] 07831- 0932 Jul, [place] [id number] [place] [address] 58306- 0979 Jun, [place] [id number] [place] [address] 70901- 2968 Jun, Fatigue, unspecified type R53.83 ; History of renal cell carcinoma Z85.528 ; Chronic pancreatitis K86.1 ; Restless leg syndrome G25.81 ; Dark urine R82.99 and BMI 45.0-49.9, adult Z68.42 [place] [id number] [place] [address] 72076- 6210 Jun, [facility] [id number], [place] [address]- 5086 Jun, [facility] [address], [place] [address]- 3974 Jun, [facility] [id number], [place] [address]- 4316 Jun, [facility] [address] [address] May, Chronic post-traumatic stress disorder (PTSD) F43.12 ; Moderate episode of recurrent major depressive disorder F33.1 ; Trichotillomania F63.3 and Generalized social phobia F40.11 [facility] [address], [place] [address]- 4075 May, [facility] [address], [place] [address]- 3627 May, Chronic post-traumatic stress disorder (PTSD) F43.12 ; Moderate episode of recurrent major depressive disorder F33.1 ; Trichotillomania F63.3 and Generalized social phobia F40.11 [facility] [address] [id number], [place] [address]- 7753 May, Hyperlipidemia, mixed E78.2 ; Morbid (severe) obesity due to excess calories E66.01 ; Chronic post-traumatic stress disorder (PTSD) F43.12 ; Moderate episode of recurrent major depressive disorder F33.1 ; Trichotillomania F63.3 and Generalized social phobia F40.11 [facility] [address] [id number], [place] [address]- 2414 Apr, [facility] [address], [place] [address]- 7788 Apr, Hyperlipidemia, mixed E78.2 ; Morbid (severe) obesity due to excess calories E66.01 ; Chronic post-traumatic stress disorder (PTSD) F43.12 ; Moderate episode of recurrent major depressive disorder F33.1 ; Trichotillomania F63.3 and Generalized social phobia F40.11 [facility] [address] [place] [address] 50043- 9487 Apr, Trichotillomania F63.3 ; Generalized social phobia F40.11 ; Chronic post-traumatic stress disorder (PTSD) F43.12 and Moderate episode of recurrent major depressive disorder F33.1 [place] [id number] [place] [address] 70819- 9632 Apr, [facility] [id number] [place] [address] 29408- 9129 Apr, [place] [id number] [place] [address] 43496- 4602 Mar, Moderate episode of recurrent major depressive disorder F33.1 ; Trichotillomania F63.3 ; Chronic post-traumatic stress disorder (PTSD) F43.12 ; Generalized social phobia F40.11 and Restless leg syndrome G25.81 [place] [id number] [place] [address] 07454- 8935 Mar, [place] [address] 66665- 0326 Mar, [place] [id number] [place] [address] 65661- 9714 Feb, Left kidney mass N28.89 [place] [id number] [place] [address] 11325- 3545 Jan, [place] [id number] [place] [address] 17465- 9727 Dec, Polydipsia R63.1 ; Chronic pancreatitis K86.1 and Fatigue, unspecified type R53.83 [facility] [id number] [place] [address] 87148- 1740 Nov, [place] [id number] [place] [address] 32148- 4373 Nov, [place] [id number] [place] [address] 00356- 3872 Nov, Headache around the eyes R51 [facility] [id number] [place] [address] 03185- 7326 Nov, [facility] [id number] [place] [address] 49370- 6070 October, STD exposure Z20.2 [facility] [id number] [place] [address] 30870- 5582 October, STD exposure Z20.2 [facility] [id number] [place] [address] 480875- 7398 October, Chronic post-traumatic stress disorder (PTSD) F43.12 ; Generalized social phobia F40.11 ; Trichotillomania F63.3 and Restless leg syndrome G25.81 [place] [id number] [place] [address] 05753- 6447 October, [facility] [id number] [place] [address] 02981- 5342 Sep, [facility] [id number] [place] [address] 26609- 7625 Aug, [facility] [id number] [place] [address] 67214- 3709 Aug, [place] [id number] [place] [address] 10591- 4562 Aug, Neck mass R22.1 [place] [id number] [place] [address] 57350- 4149 Aug, Atelectasis J98.11 [place] [id number] [place] [address] 58653- 9935 28 Jul, 2016 Hyperlipidemia, mixed E78.2 ; Atypical pneumonia J18.9 and Neck mass R22.1 [place] [id number] [place] [address] 09183- 7641 15 Jul, 2016 Hemoptysis R04.[address] [place] [address] 49159- 2387 08 Jul, 2016 Acute non-recurrent pansinusitis J01.40 ; Hemoptysis R04.2 ; Polydipsia R63.1 and Malaise R53.81 [facility] [id number] [place] [address] 91856 -0159 May, Other viral agents as the cause of diseases classified elsewhere B97.89 and Acute upper respiratory infection, unspecified J06.9 [facility] [id number] [place] [address] 18130 -7243 Mar, Nausea R11.0 [facility] [address] [id number] [place] [address] 62888 -7476 Dec, Hives L50.9 [id number] [place] [address] 20837- 6955 Dec, [facility] [id number] [place] [address] 96955 -3210 Dec, Cutaneous abscess of limb, unspecified L02.419 ; Cellulitis of unspecified part of limb L03.119 ; Encounter for incision and drainage procedure Z01.89 and Encounter for recheck of abscess following incision and drainage Z09 [facility] IN [address] [place] [address] 02635 -2842 Dec, Abscess of leg, right L02.415 [place] [id number] [place] [address] 64214- 6235 08 Dec, 2015 Cellulitis of unspecified part of limb L03.119 and Cutaneous abscess of limb, unspecified L02.419 [place] [address] [place] [address] 82364- 9325 Dec, [place] [address] [place] [address] 32148- 8751 Dec, [facility] [address] [place] [address] 10665 -1814 Aug, [facility] [id number] [place] [address] 41946- 5548 Aug, [facility] [id number] [place] [address] 21302 -4415 04 Jul, 2015 Pain in unspecified wrist M25.539 and Back pain, thoracic M54.6 [facility] [id number] [place] [address] 51852 -9397 13 Jun, 2015 Strain of right wrist, initial encounter S66.911A [place] [address] 15363- 8055 Jun, Chronic pancreatitis, unspecified pancreatitis type K86.1 ; Hirsuties L68.0 ; Morbid (severe) obesity due to excess calories E66.01 ; Chronic pancreatitis K86.1 and Asthma J45.909 [place] [id number] [place] [address] 72985- 4549 May, [place] [id number] [place] [address] 84277- 0125 May, Hyperlipidemia, mixed E78.2 and Muscle spasm of back M62.830 [place] [id number] [place] [address] 38304- 8080 Apr, [place] [id number] [place] [address] 35931- 1117 Apr, Torticollis M43.6 [place] [id number] [place] [address] 17604- 3875 Apr, Right-sided thoracic back pain M54.6 [place] [id number] [place] [address] 43949- 0379 Mar, Rash R21 [place] [id number] [place] [address] 45074- 6852 Mar, [place] [address], [place] [address]- 1623 Jan, [facility] [id number] [place] [address] 965297- 9503 Dec, [facility] [id number] 6139 Dec, Urinary frequency 788.41 and Nocturia more than twice per night 788.43 [facility] [id number] [place] [address] 61685- 7053 Nov, [facility] [id number] [place] [address] 052227- 5839 Nov, [facility] [id number] [place] [address] 23744- 5787 Nov, Abdominal pain 789.00 [facility] [id number] [place] [address] 03404- 4336 October, TDAP DX V06.1 [facility] [id number] [place] [address] 23721- 9738 October, [facility] [id number] [place] [address] 474261- 0704 October, Disturbance of skin sensation 782.0 ; Wrist pain, right 719.43 ; Hyperlipidemia 272.4 and Skin lesion of face 709.9 [facility] [address], [place] [address]- 7851 Sep, [facility] [address], [place] [address]- 4655 Sep, [facility] [id number] [place] [address] 198796- 7692 Aug, [facility] [address], [place] [address]- 1688 Aug, [facility] [id number] [place] [address] [id number]- 8092 23 Aug, 2014 [facility] [place] [facility] [address] [id number] [place] [address]- 7341 23 Aug, 2014 [facility] [place] [facility] [address] [id number] [place] [address]- 8456 16 Aug, 2014 [facility] [place] [facility] [address] [id number] [place] [address]- 5645 16 Aug, 2014 [facility] [place] [facility] [address] [id number] [place] [address]- 9757 14 Aug, 2014 [facility] [place] [facility] [address] [id number] [place] [address]- 7205 14 Aug, 2014 [facility] [place] [facility] [address] [id number] [place] [address]- 4350 Aug, [facility] [place] [facility] [address] [id number] [place] [address]- 1394 Aug, [facility] [place] [facility] [address] [id number] [place] [address]- 6198 04 Aug, 2014 [facility] [place] [facility] [address] [id number] [place] [address]- 4263 Aug, [facility] [place] [facility] [address] [id number] [place] [address]- 9805 Aug, [facility] [place] [facility] [address] [id number] [place] [address]- 5412 Aug, [facility] [place] [facility] [address] [id number] [address]- 6847 Jul, 2014 [facility] [place] [facility] [address] [id number] [place] [address]- 3853 Jul, 2014 [facility] [place] [facility] [address] [id number] [place] [address]- 3698 Jul, 2014 [facility] [place] [facility] [address] [id number] [place] [address]- 8943 Jul, [facility] [place] [facility] [address] [id number] [place] [address]- 0572 Jul, [facility] [address] [id number] [place] [address]- 0801 Jul, [facility] [address] [id number] [place] [address]- 2421 Jun, [facility] [address] [id number] [place] [address]- 6167 Jun, [facility] [address] [id number] [place] [address]- 5877 Jun, [facility] [address] [id number] [place] [address]- 4310 Jun, [facility] [address] [id number] [place] [address]- 8449 Jun, [facility] [address] [id number] [place] [address]- 8541 Jun, [facility] [address] [id number] [place] [address]- 9376 Jun, [facility] [address] [id number] [place] [address]- 7819 Jun, [facility] [address] [id number] [place] [address]- 1509 May, [facility] [place] [facility] [address] [id number] [place] [address]- 5681 May, [facility] [address] [id number] [place] [address]- 8689 18 May, 2014 [facility] [place] [facility] [address] [id number] [place] [address]- 5983 18 May, 2014 [facility] [place] [facility] [address] [id number] [place] [address]- 5783 15 May, 2014 [facility] [place] [facility] [address] [id number] [place] 2010 May, [facility] [place] [facility] [address] [id number] [place] [address]- 4999 May, [facility] [place] [facility] [address] [id number] [place] [address]- 5143 May, [facility] [place] [facility] [address] [id number] [place] [address]- 5116 May, [facility] [place] [facility] [address] [id number] [place] [address]- 9824 May, [facility] [place] [facility] [address] [id number] [place] [address]- 8401 May, [facility] [place] [facility] [address] [id number] [place] [address]- 2032 May, [facility] [place] [facility] [address] [id number] [place] [address]- 5797 Apr, [facility] [place] [facility] [address] [id number] [place] [address]- 3112 Apr, [facility] [place] [facility] [address] [id number] [place] [address]- 5157 Apr, [facility] [place] [facility] [address] [id number] [place] [address]- 3165 Apr, [facility] [place] [facility] [address] [id number] [place] [address] Apr, [facility] [place] [facility] [address] [id number] [place] [address] Apr, [facility] [place] [facility] [address] [id number] [place] [address] Apr, [facility] [place] [facility] [address] [id number] [place] [address] Apr, [facility] [place] [facility] [address] [id number] [place] [address] Apr, [facility] [place] [facility] [address] [id number] [place] [address] Apr, [facility] [place] [facility] [address] [id number] [place] [address] Apr, [facility] [place] [facility] [address] [id number] [place] [address] Apr, [facility] [place] [facility] [address] [id number] [place] [address] Mar, [facility] [place] [facility] [address] [id number] [place] [address] Mar, [facility] [place] [facility] [address] [id number] [place] [address] Mar, [facility] [place] [facility] [address] [id number] [place] [address] Mar, [facility] [place] [facility] [address] [id number] [place] [address] 10 Feb, 2014 [facility] [place] [facility] [address] [id number] [place] [address] 10 Feb, 2013 [facility] [place] [facility] [address] [id number] [place] [address] 05 Feb, 2013 [facility] [place] [facility] [address] [id number] [place] [address] 05 Feb, 2013 [facility] [place] [facility] [address] [id number] [place] [address] Feb, 2013 [facility] [place] [facility] [address] [id number] [place] [address] Feb, 2013 [facility] [place] [facility] [address] [id number] [place] [address] Jan, [facility] [place] [facility] [address] [id number] [place] [address] Jan, [facility] [place] [facility] [address] [id number] [place] [address] Jan, [facility] [place] [facility] [address] [id number] [facility] [address] Jan, [facility] [place] [facility] [address] [id number] [facility] [address] Jan, [facility] [place] [facility] [address] [id number] [place] [address] Jan, [facility] [place] [facility] [address] [id number] [place] [address] Jan, [facility] [place] [facility] [address] [id number] [place] [address] Jan, [facility] [place] [facility] [address] [id number] [place] [address] Jan, [facility] [place] [facility] [address] [id number] [place] [address] Jan, [facility] [place] [facility] [address] [id number] [place] [address] Jan, [facility] [place] [facility] [address] [id number] [place] [address] Jan, [facility] [place] [facility] [address] [id number] [place] [address] Jan, [facility] [place] [facility] [address] [id number] [place] [address] Jan, [facility] [place] [facility] [address] [id number] [place] [address] Dec, [facility] [place] [facility] [address] [id number] [place] [address] Dec, [facility] [place] [facility] [address] [id number] [place] [address] Dec, [facility] [place] [facility] [address] [id number] [place] [address] Dec, [facility] [place] [facility] [address] [id number] [place] [address] Nov, [facility] [place] [facility] [address] [id number] [place] [address] Nov, [facility] [place] [facility] [address] [id number] [place] [address] Nov, [facility] [place] [facility] [address] [id number] [place] [address] Nov, [facility] [place] [facility] [address] [id number] [place] [address]- 4936 Nov, [facility] [place] [facility] [address] [id number] [place] [address] 3837 October, [facility] [place] [facility] [address] [id number] [place] [address]- 5412 October, [facility] [place] [facility] [address] [id number] [place] [address]- 8777 October, [facility] [place] [facility] [address] [id number] [place] [address]- 4595 October, [facility] [place] [facility] [address] [id number] [place] [address]- 8928 October, [facility] [place] [facility] [address] [id number] [place] [address]- 8028 October, [facility] [place] [facility] [address] [id number] [place] [address]- 4730 October, [facility] [place] [facility] [address] [id number] [place] [address]- 4029 October, [facility] [place] [facility] [address] [id number] [place] [address]- 1766 October, [facility] [place] [facility] [address] [id number] [place] [address]- 7132 October, [facility] [place] [facility] [address] [id number] [place] [address]- 0777 October, [facility] [place] [facility] [address] [id number] [place] [address]- 8819 October, [facility] [place] [facility] [address] [id number] [place] [address]- 7828 October, [facility] [place] [facility] [address] [id number] [place] [address]- 2121 October, [facility] [place] [facility] [address] [id number] [place] [address]- 7252 Sep, [facility] [place] [facility] [address] [id number] [place] [address]- 9894 Sep, [facility] [place] [facility] [address] [id number] [place] [address]- 9958 Sep, [facility] [place] [facility] [address] [id number] [place] [address]- 2144 Sep, [facility] [place] [facility] [address] [id number] [place] [address]- 4410 Sep, [facility] [place] [facility] [address] [id number] [place] [address]- 8959 Sep, [facility] [place] [facility] [address] [id number] [place] [address]- 0110 Sep, [facility] [place] [facility] [address] [id number] [place] [address]- 9913 Sep, [facility] [place] [facility] [address] [id number] [place] [address]- 2520 Sep, [facility] [place] [facility] [address] [id number] [place] [address]- 7715 Sep, [facility] [place] [facility] [address] [id number] [place] [address]- 1228 Sep, [facility] [place] [facility] [address] [id number] [place] [address]- [address] Sep, [facility] [place] [facility] [address] [id number] [place] [address]- 5525 Sep, [facility] [place] [facility] [address] [id number] [place] [address]- 1121 Sep, [facility] [place] [facility] [address] [id number] [place] [address]- 6175 Sep, [facility] [place] [facility] [address] [id number] [place] [address]- 8911 Aug, [facility] [place] [facility] [address] [id number] [place] [address]- 6937 Aug, [facility] [place] [facility] [address] [id number] [place] [address]- 9240 Aug, [facility] [place] [facility] [address] [id number] [place] [address]- 8904 Aug, [facility] [place] [facility] [address] [id number] [place] [address]- 8531 Jul, [facility] [place] [facility] [address] [id number] [place] [address]- 6815 Jul, [facility] [place] [facility] [address] [id number] [place] [address]- 9805 Jul, [facility] [place] [facility] [address] [id number] [place] [address]- 7585 Jul, [facility] [place] [facility] [address] [id number] [place] [address]- 6392 Jun, [facility] [place] [facility] [address] [id number] [place] [address]- 0426 Jun, [facility] [place] [facility] [address] [id number] [place] [address]- 4365 Jun, [facility] [place] [facility] [address] [id number] [place] [address]- 7919 Jun, [facility] [place] [facility] [address] [id number] [place] [address]- 7987 Jun, [facility] [place] [facility] [address] [id number] [place] [address]- 4628 10 Jun, 2013 [facility] [address] [id number] [place] [address] Jun, [facility] [place] [facility] [address] [id number] [place] [address]- 6511 08 Jun, 2013 [facility] [address] [id number] [place] [address]- 0545 20 May, 2013 [facility] [place] [facility] [address] [id number] [place] [address]- 7617 20 May, 2013 [facility] [address] [id number] [place] [address]- 0600 18 May, 2013 [facility] [place] [facility] [address] [id number] [place] [address]- 2761 18 May, 2013 [facility] [address] [id number] [place] [address]- 6321 17 May, 2013 [facility] [address] [facility] [id number] [place] [id number] 17 May, 2013 [facility] [place] [facility] [address] [id number] [place] [address]- 9378 17 May, 2013 [facility] [place] [facility] [address] [id number] [place] [address]- 5607 17 May, 2013 [facility] [place] [facility] [address] [id number] [place] [address]- 4734 16 May, 2013 [facility] [place] [facility] [address] [id number] [place] [address]- 7872 16 May, 2013 [facility] [place] [facility] [address] [id number] [place] [address]- 5280 14 May, 2013 [facility] [place] [facility] [address] [id number] [place] [address]- 7041 14 May, 2013 [facility] [place] [facility] [address] [id number] [place] [address]- 6999 13 May, 2013 [facility] [place] [facility] [address] [id number] [place] [address]- 0450 13 May, 2013 [facility] [address] [id number] [place] [address]- 5053 May, [facility] [place] [facility] [address] [id number] [place] [address]- 9055 May, [facility] [address] [id number] [place] [address]- 7768 May, [facility] [place] [facility] [address] [id number] [place] [address]- 4678 May, [facility] [address] [id number] [place] [address]- 7584 Apr, [facility] [place] [facility] [address] [id number] [place] [address]- 5569 Apr, [facility] [place] [facility] [address] [id number] [place] [address]- 3505 Apr, [facility] [address] [id number] [place] [address]- 4131 Apr, [facility] [place] [facility] [address] [id number] [place] [address]- 6935 Aug, [facility] [address] [id number] [place] [address]- 4789 Aug, [facility] [place] [facility] [address] [id number] [place] [address]- 6454 Aug, [facility] [place] [facility] [address] [id number] [place] [address]- 9523 05 Aug, 2012 [facility] [place] [facility] [address] [id number] [place] [address]- 0595 04 Jul, 2012 [facility] [place] [facility] [address] [id number] [place] [address]- 9763 Jun, [facility] [place] [facility] [address] [id number] [place] [address]- 0247 Jun, [facility] [address] [id number] [place] [address]- 0659 Jun, [facility] [place] [facility] [address] [id number] [place] [address]- 4447 Jun, [facility] [place] [facility] [address] [facility] [id number] [place] [address] May, [facility] [place] [facility] [address] [id number] [place] [address]- 5368 May, [facility] [place] [facility] [address] [id number] [place] [address]- 0686 May, [facility] [place] [facility] [address] [id number] [place] [address]- 5048 May, [facility] [place] [facility] [address] [id number] [place] [address]- 0762 May, [facility] [place] [facility] [address] [id number] [place] [address]- 6943 May, [facility] [place] [facility] [address] [id number] [place] [address]- 2363 May, [facility] [place] [facility] [address] [id number] [place] [address]- 4336 Apr, [facility] [place] [facility] [address] [id number], [place] [address]- 4740 Apr, [facility] [place] [facility] [address] [id number], [place] [address]- 0747 Apr, [facility] [place] [facility] [address] [id number] [place] [address]- 5749 Apr, [facility] [place] [facility] [address] [id number] [place] [address]- 9998 Apr, [facility] [place] [facility] [address] [facility] [id number] [place] [address]- 8862 Apr, [facility] [place] [facility] [address] [id number] [place] [address]- 8187 Apr, [facility] [place] [facility] [address] [id number] [place] [address]- 2420 Mar, 2011 [facility] [place] [facility] [address] [id number] [place] [address] Mar, [facility] [place] [facility] [address] [id number] [place] [address]- 3510 Mar, [facility] [place] [facility] [address] [id number] [place] [address]- 9126 Mar, [facility] [place] [facility] [address] [id number] [place] 4157 Mar, [facility] [place] [facility] [address] [id number] [place] [address]- 6866 Mar, [facility] [place] [facility] [address] [id number] [place] [address]- 5647 Mar, [facility] [place] [facility] [address] [id number] [place] [address]- 4759 Mar, [facility] [place] [facility] [address] [id number] [place] [address]- 9450 Mar, [facility] [place] [facility] [address] [facility] [id number] [place] [address]- 4125 15 Mar, 2012 [facility] [place] [facility] [address] [id number] [place] [address]- 3276 Mar, [facility] [place] [facility] [address] [id number], [place] [address]- 8880 Mar, [facility] [place] [facility] [address] [id number] [place] [address]- 0745 06 Feb, 2012 [facility] [place] [facility] [address] [id number] [place] [address]- 8789 Jan, [facility] [place] [facility] [address] [id number], [place] [address]- 2473 Jan, [facility] [place] [facility] [address] [id number] [place] [address]- 9085 Jan, [facility] [place] [facility] [address] [id number] [place] [address]- 3525 Jan, [facility] [place] [facility] [address] [id number] [place] [address]- 3014 Jan, [facility] [place] [facility] [address] [id number] [place] [address]- 7117 Dec, [facility] [address] [id number] [place] [address]- 1110 Dec, [facility] [place] [facility] [address] [id number] [place] [address]- 0038 Nov, [facility] [address] [id number] [place] [address]- 2736 Nov, [facility] [address] [id number] [place] [address]- 2529 Nov, [facility] [place] [facility] [address] [id number] [place] [address]- 9766 October, [facility] [address] [id number] [place] [address]- 6532 October, [facility] [place] [facility] [address] [id number] [place] [address]- 9181 October, [facility] [place] [facility] [address] [id number] [place] [address]- 4627 October, [facility] [place] [facility] [address] [id number] [place] [address]- 5239 October, [facility] [place] [facility] [address] [id number] [place] [address]- 8400 October, [facility] [place] [facility] [address] [id number] [place] [address]- 6452 October, [facility] [place] [facility] [address] [id number] [place] [address]- 6141 26 Sep, 2011 [facility] [place] [facility] [address] [id number] [place] [address]- 3346 26 Sep, 2011 [facility] [place] [facility] [address] [id number] [place] [address]- 8012 26 Sep, 2011 [facility] [place] [facility] [address] [id number] [place] [address]- 2624 25 Sep, 2011 [facility] [place] [facility] [address] [id number] [place] [address]- 6638 24 Sep, 2011 [facility] [place] [facility] [address] [id number] [place] [address]- 8766 19 Sep, 2011 [facility] [place] [facility] [address] [id number] [place] [address]- 4634 17 Sep, 2011 [facility] [place] [facility] [address] [id number] [place] [address]- 9655 16 Sep, 2011 [facility] [place] [facility] [address] [id number] [place] [address]- 3416 16 Sep, 2011 [facility] [place] [facility] [address] [id number] [place] [address]- 1121 14 Sep, 2011 [facility] [place] [facility] [address] [id number] [place] [address]- 5543 13 Sep, 2011 [facility] [place] [facility] [address] [id number] [place] [address]- 2926 10 Sep, 2011 [facility] [place] [facility] [address] [id number] [place] [address]- 9557 09 Sep, 2011 [facility] [place] [facility] [address] [id number] [place] [address]- 3408 27 Aug, 2011 [facility] [place] [facility] [address] [id number] [place] [address]- 3116 12 Aug, 2011 [facility] [place] [facility] [address] [id number] [place] [address]- 4689 08 Aug, 2011 [facility] [place] [facility] [address] [id number] [place] [address]- 9310 Aug, [facility] [place] [facility] [address] [id number] [place] [address]- 1226 28 Jul, 2011 [facility] [place] [facility] [address] [id number] [place] [address]- 9336 22 Jul, 2011 [facility] [place] [facility] [address] [id number] [place] [address]- 7646 16 Jul, 2011 [facility] [place] [facility] [address] [id number] [place] [address] 2546 15 Jul, 2011 [facility] [place] [facility] [address] [id number] [place] [address]- 8246 14 Jul, 2011 [facility] [place] [facility] [address] [id number] [place] [address]- 2953 10 Jul, 2011 [facility] [place] [facility] [address] [id number] [place] [address]- 2592 Jun, [facility] [place] [facility] [address] [id number] [place] [address]- 8938 Jun, [facility] [place] [facility] [address] [id number] [place] [address]- 0382 Jun, [facility] [place] [facility] [address] [id number] [place] [address]- 9080 Jun, [facility] [place] [facility] [address] [id number] [place] [address]- 9106 Jun, [facility] [place] [facility] [address] [id number] [place] [address]- 7778 May, [facility] [place] [facility] [address] [id number] [place] [address] 2546 May, [facility] [place] [facility] [address] [id number] [place] [address]- 6023 May, [facility] [place] [facility] [address] [id number] [place] [address]- 9410 14 May, 2011 [facility] [place] [facility] [address] [id number] [place] [address]- 5618 12 May, 2011 [facility] [place] [facility] [address] [id number] [place] [address]- 3938 May, [facility] [place] [facility] [address] [id number] [place] [address]- 3624 May, [facility] [place] [facility] [address] [id number] [place] [address]- 6764 Apr, [facility] [place] [facility] [address] [id number] [place] [address]- 7427 Apr, [facility] [place] [facility] [address] [id number] [place] [address]- 5081 Apr, [facility] [place] [facility] [address] [id number] [place] [address]- 3368 Apr, [facility] [place] [facility] [address] [id number] [place] [address]- 9247 Apr, [facility] [place] [facility] [address] [id number] [place] [address]- 2586 Apr, [facility] [place] [facility] [address] [id number] [place] [address]- 0235 Mar, [facility] [place] [facility] [address] [id number], [place] [address]- 5136 Mar, [facility] [place] [facility] [address] [id number], [place] [address]- 8274 Mar, [facility] [place] [facility] [address] [id number] [place] [address]- 8634 Mar, [facility] [place] [facility] [address] [id number], [place] [address]- 2791 Jan, [facility] [place] [facility] [address] [id number] [place] [address]- 9687 Dec, [facility] [place] [facility] [address] [id number] [place] [address]- 0530 13 Dec, 2010 [facility] [address] [id number] [place] [address]- 2946 11 Oct, 2010 [facility] [place] [facility] [address] [id number] [place] [address] 2546 20 Sep, 2010 [facility] [address] [id number] [place] [address]- 4406 14 Sep, 2010 [facility] [address] [id number] [place] [address] 2546 17 Jul, 2010 [facility] [address] [id number] [place] [address], [place] [address]- 9886 16 Jul, 2010 [facility] [address] [id number] [place] [address]- 5886 31 May, 2010 [facility] [address] [id number] [place] [address] 2540 May, [facility] [address] [id number] [place] [address]- 0393 08 May, 2010 [facility] [address] [id number] [place] [address]- 7996 May, [facility] [address] [id number] [place] [address]- 8294 Apr, [facility] [place] [facility] [address] [id number] [place] [address] 2543 Apr, [facility] [address] [id number] [place] [address] 2549 Apr, [facility] [place] [facility] [address] [id number] [place] [address]- 4570 Apr, [facility] [place] [facility] [address] [id number] [place] [address] 2543 Apr, [facility] [address] [id number] [place] [address]- 9377 Mar, [facility] [place] [facility] [address] [id number] [place] [address]- 65[address] 14 Mar, 2010 [facility] [place] [facility] [address] [id number] [place] [address] 13 Mar, 2010 [facility] [place] [facility] [address] [id number] [place] [address] 12 Mar, 2010 [facility] [place] [facility] [address] [id number] [place] [address] 20 Jan, 2010 [facility] [place] [facility] [address] [id number] [place] [address] 15 Dec, 2009 [facility] [place] [facility] [address] [id number], [place] [address] 10 Sep, 2009 [facility] [place] [facility] [address] [facility] [id number] [place] [address] 08 May, 2009 [facility] [place] [facility] [address] [id number], [place] [address] 06 May, 2009 [facility] [place] [facility] [address] [id number], [place] [address] May, [facility] [place] [facility] [address] [facility] [id number], [place] [address] 17 Apr, 2009 [facility] [place] [facility] [address] [id number], [place] [address] 17 Apr, 2009 [facility] [place] [facility] [address] [id number], [place] [address] 10 Apr, 2009 [facility] [place] [facility] [address] [id number], [place] [address] 10 Apr, 2009 [facility] [place] [facility] [address] [id number], [place] [address] 09 Apr, 2009 [facility] [place] [facility] [address] [facility] [id number], [place] [address] 15 Mar, 2009 [facility] [place] [facility] [address] [id number], [place] [address] Mar, [facility] [address] [facility] [id number] [place] [address] Jul, IMMUNIZATIONS No Known Immunizations SOCIAL HISTORY Never Assessed REASON FOR VISIT BP Reduction Challenge Initial Visit PLAN OF CARE VITAL SIGNS Height 62 in 2017-12-31 Blood pressure systolic 134 mmHg 2017-12-31 Blood pressure diastolic 82 mmHg 2017-12-31 MEDICATIONS Unknown Medications RESULTS No Results PROCEDURES [...] 08/2017 Surgical History nephrectomy 03/2017 Hospitalization History [facility]ulitis-[facility] 12/20/15 Hospitalization [facility]- Abd pain 03/07/2017 Hospitalization History [facility]- Abd pain 03/14/2017 Hospitalization History [facility]- No bowel movement, rash 04/13/2017 Hospitalization History [facility]- Abd pain r/t kidney surgery on 04/17/2017 Hospitalization History [facility]- Abd pain r/t kidney surgery on 04/18/2017 Hospitalization History [facility]- Lower abd pain 04/30/2017 Hospitalization History [facility]- Cannot urinate 05/30/2017 Hospitalization History [facility]- Pancreatitis Sx 06/29/2017 Hospitalization History [facility]- Stomach pain 07/22/2017 Hospitalization History [facility]- Left side pain 08/12/2017 Hospitalization History [facility]- Incision site infection 08/30/2017 Hospitalization History [facility]- Post Op Seroma/Hematoma Left Abdomen. Discharged 09/04/17- Dr Daniel 09/02/2017 Hospitalization History [facility]- Right shoulder and back pain 2017 Hospitalization History [facility]- Shoulder/Back pain 11/11/2017 Hospitalization History [facility]- Right shoulder blade pain 12/04/2017 Hospitalization History [facility]- C-Diff 12/13/2017 Hospitalization History C diff et MRSA 12/27/2017
--- OUTSIDE RECORDS SUMMARY | 2018-02-24 14:20 | XMS REPORT ---
Author Author EWELINA SHIELDS Organization [facility] Address [address] [place] [address] Care Team Providers Care Freight Weigher Name Role Phone EWELINA SHIELDS Unavailable PROBLEMS Type Condition ICD9-CM Code VUU81-GQ Code Onset Dates Condition Status SNOMED Code Problem Polydipsia R63.1 Active 77444373 Problem Trichotillomania F63.3 Active 15979926 Problem Atelectasis J98.11 Active 80035692 Problem Intestinal malabsorption, unspecified K90.9 Active 41452781 Problem Chronic fatigue R53.82 Active 08822916 Problem Generalized social phobia F40.11 Active 70631074 Problem Restless leg syndrome G25.81 Active 07175691 Problem Moderate episode of recurrent major depressive disorder F33.1 Active 209029103 Problem Chronic post-traumatic stress disorder (PTSD) F43.12 Active 799898873 Problem History of renal cell carcinoma Z85.528 Active 483527328 Problem Chronic tension-type headache, intractable G44.221 Active 915004366 Problem Nodule of left lung R91.1 Active 715427313 Problem Hirsuties L68.0 Active 169577976 Problem FH: polycystic ovary Z84.2 Active 854356625 Problem Morbid (severe) obesity due to excess calories E66.01 Active 521354100 Problem Chronic pancreatitis K86.1 Active 502545233 Problem Hyperlipidemia, mixed E78.2 Active 370961587 Problem Asthma J45.909 Active 372624619 ALLERGIES No Information ENCOUNTERS Encounter Location Date Diagnosis [facility] [address] [facility] [id number] [address] Mar, [facility] [address] [address] Feb, [facility] [id number] [address] Jan, Acute pain of right knee M25.561 ; Right upper quadrant abdominal pain R10.11 and BMI 45.0-49.9, adult Z68.42 [facility] [id number] [place] [address] 85892- 2792 Jan, [facility] [id number] [place] [address] 28639- 1000 Jan, [facility] [id number] [place] [address] 54598- 6938 Dec, [facility] [id number] [place] [address] 60867- 2947 Dec, Intestinal malabsorption, unspecified K90.9 and Diarrhea, unspecified R19.7 [facility] [id number] [place] [address] 55444- 0643 Dec, [facility] [id number] [place] [address] 47591- 6387 Dec, Strep throat J02.0 ; Intestinal malabsorption, unspecified K90.9 ; Diarrhea, unspecified R19.7 ; Postoperative seroma involving digestive system after non-digestive system procedure K91.873 ; Hyperlipidemia, mixed E78.2 and BMI 45.0-49.9, adult Z68.42 [facility] [id number] [place] [address] 51036- 3228 Dec, [facility] [id number] [place] [address] 30178- 7932 Dec, Nausea R11.0 [facility] [id number] [place] [address] 31761- 6969 Dec, [facility] [id number] [place] [address] 97246 -4715 Dec, Sore throat J02.9 ; Strep throat J02.0 and BMI 45.0-49.9, adult Z68.42 [facility] [id number] [place] [address] 86600- 9867 Dec, [facility] [address] [address] 4711 Dec, [facility] [address] [address] 6139 Dec, [facility] [address] [address]- 3015 Dec, [facility] [address] [address] 0700 Dec, [facility] [address] [address]- 0924 Dec, [facility] [id number] [place] [address] 69224- 7350 Dec, [facility] [address] [address]- 7805 Dec, [facility] [address], [place] [address] 2646 Dec, Clostridium difficile colitis A04.72 ; Intractable vomiting with nausea, unspecified vomiting type R11.2 and BMI 45.0-49.9, adult Z68.42 [facility] [address], [place] [address] 8719 Dec, [facility] [address] [address]- 2516 Nov, [facility] [address] [address]- 3960 Nov, [facility] [address] [address]- 2536 Nov, [facility] [address] [address]- 7555 Nov, [facility] [address] [address] Nov, [facility] [id number] [place] [address] 01862- 1391 18 Nov, 2017 Hyperlipidemia, mixed E78.2 [facility] [id number] [place] [address] 76019 -3905 Nov, Acute suppurative otitis media of right ear without spontaneous rupture of tympanic membrane, recurrence not specified H66.001 and BMI 45.0-49.9, adult Z68.42 [place] [id number] [place] [address] 18948- 6734 Nov, Hyperlipidemia, mixed E78.2 [place] [id number] [place] [address] 38853- 0115 Nov, [place] [id number] [place] [address] 57719- 0764 Nov, [address] 9[address]99- 5105 Nov, Nodule of left lung R91.1 [place] [id number] [place] [address] 00647- 7971 Nov, Medicare annual wellness visit, initial Z00.00 [...] adult Z68.42 and Encounter for immunization Z23 [address] [address]- 4127 October, [place] [id number] [place] [address] 00166- 3853 October, Nodule of left lung R91.[address] 41687- 9410 October, Nodule of left lung R91.1 [place] [id number] [place] [address] 03495- 4926 October, Recurrent major depressive disorder, in partial remission F33.41 ; Restless leg syndrome G25.81 ; Generalized social phobia F40.11 ; Chronic post-traumatic stress disorder (PTSD) F43.12 ; BMI 45.0-49.9, adult Z68.42 and Trichotillomania F63.3 [place] [address] 08286- 6929 October, [place] [address] 67709- 9465 Sep, Chronic fatigue R53.82 and BMI 45.0-49.9, adult Z68.42 [place] [address] 72092- 2090 Aug, [place] [address] 14948- 9526 Jul, Restless leg syndrome G25.81 and B12 deficiency E53.[address] 76418- 2832 Jul, [place] [id number] [place] [address] 58985- 2362 Jul, [place] [id number] [place] [address] 54582- 1118 Jun, [place] [id number] [place] [address] 72734- 0912 Jun, Fatigue, unspecified type R53.83 ; History of renal cell carcinoma Z85.528 ; Chronic pancreatitis K86.1 ; Restless leg syndrome G25.81 ; Dark urine R82.99 and BMI 45.0-49.9, adult Z68.42 [place] [address] 42586- 7381 Jun, [facility] [address] [address]- 7598 Jun, [facility] [address] [address]- 0953 Jun, [facility] [id number] [address]- 9843 Jun, [facility] [address], [place] [address]- 5994 May, Chronic post-traumatic stress disorder (PTSD) F43.12 ; Moderate episode of recurrent major depressive disorder F33.1 ; Trichotillomania F63.3 and Generalized social phobia F40.11 [facility] [address], [place] [address]- 3329 May, [facility] [address] [address]- 1355 May, Chronic post-traumatic stress disorder (PTSD) F43.12 ; Moderate episode of recurrent major depressive disorder F33.1 ; Trichotillomania F63.3 and Generalized social phobia F40.11 [facility] [id number] [address] May, Hyperlipidemia, mixed E78.2 ; Morbid (severe) obesity due to excess calories E66.01 ; Chronic post-traumatic stress disorder (PTSD) F43.12 ; Moderate episode of recurrent major depressive disorder F33.1 ; Trichotillomania F63.3 and Generalized social phobia F40.11 [facility] [id number] [address]- 3206 Apr, [facility] [address] [address]- 1529 Apr, Hyperlipidemia, mixed E78.2 ; Morbid (severe) obesity due to excess calories E66.01 ; Chronic post-traumatic stress disorder (PTSD) F43.12 ; Moderate episode of recurrent major depressive disorder F33.1 ; Trichotillomania F63.3 and Generalized social phobia F40.11 [facility] [id number] [place] [address] 32152- 1616 Apr, Trichotillomania F63.3 ; Generalized social phobia F40.11 ; Chronic post-traumatic stress disorder (PTSD) F43.12 and Moderate episode of recurrent major depressive disorder F33.1 [facility] [id number] [place] [address] 32350- 2233 Apr, [facility] [id number] [place] [address] 58942- 9847 Apr, [place] [id number] [place] [address] 31567- 8801 Mar, Moderate episode of recurrent major depressive disorder F33.1 ; Trichotillomania F63.3 ; Chronic post-traumatic stress disorder (PTSD) F43.12 ; Generalized social phobia F40.11 and Restless leg syndrome G25.81 [place] [id number] [place] [address] 75505- 4991 Mar, [place] [id number] [place] [address] 84075- 3980 Mar, [facility] [id number] [place] [address] 76921- 1183 Feb, Left kidney mass N28.89 [facility] [id number] [place] [address] 29374- 7286 Jan, [place] [id number] [place] [address] 90471- 1499 Dec, Polydipsia R63.1 ; Chronic pancreatitis K86.1 and Fatigue, unspecified type R53.83 [facility] [id number] [place] [address] 35714- 4048 Nov, [facility] [id number] [place] [address] 58652- 3120 Nov, [place] [id number] [place] [address] 30677- 7239 Nov, Headache around the eyes R51 [facility] [id number] [place] [address] 76992- 5421 Nov, [facility] [id number] [place] [address] 51081- 3636 October, STD exposure Z20.2 [facility] [id number] [place] [address] 87342- 3709 October, STD exposure Z20.2 [place] [id number] [place] [address] 469756- 0435 October, Chronic post-traumatic stress disorder (PTSD) F43.12 ; Generalized social phobia F40.11 ; Trichotillomania F63.3 and Restless leg syndrome G25.81 [place] [id number] [place] [address] 11538- 3085 October, [facility] [id number] [place] [address] 73161- 8068 Sep, [place] [id number] [place] [address] 68995- 3759 Aug, [facility] [id number] [place] [address] 53140- 0225 Aug, [place] [id number] [place] [address] 57029- 2270 Aug, Neck mass R22.1 [place] [id number] [place] [address] 66140- 9788 Aug, Atelectasis J98.11 [place] [id number] [place] [address] 32852- 3579 28 Jul, 2016 Hyperlipidemia, mixed E78.2 ; Atypical pneumonia J18.9 and Neck mass R22.1 [place] [id number] [place] [address] 93983- 3562 15 Jul, 2016 Hemoptysis R04.2 [place] [address] [address]- 1048 08 Jul, 2016 Acute non-recurrent pansinusitis J01.40 ; Hemoptysis R04.2 ; Polydipsia R63.1 and Malaise R53.81 [facility] [id number] [address] -[address]686 May, Other viral agents as the cause of diseases classified elsewhere B97.89 and Acute upper respiratory infection, unspecified J06.9 [facility] [place] [id number] [place] [address] 51276 -3232 Mar, Nausea R11.0 [facility] [place] [id number] [place] [address] 05365 -6920 Dec, Hives L50.9 [place] [id number] [place] [address] 13631- 9899 Dec, [facility] [place] [id number] [place] [address] 10754 -8223 Dec, Cutaneous abscess of limb, unspecified L02.419 ; Cellulitis of unspecified part of limb L03.119 ; Encounter for incision and drainage procedure Z01.89 and Encounter for recheck of abscess following incision and drainage Z09 [facility] [address] [address] -[address]06 Dec, Abscess of leg, right L02.415 [place] [id number] [place] [address] 74712- 1805 08 Dec, 2015 Cellulitis of unspecified part of limb L03.119 and Cutaneous abscess of limb, unspecified L02.419 [place] [address] [place] [address] 45539- 5969 Dec, [place] [address] [address]- 9410 Dec, [facility] [id number] [place] [address] 04689 -3115 Aug, [place] [id number] [place] [address] 29848- 4560 Aug, [facility] [id number] [place] [address] 07791 -2351 04 Jul, 2015 Pain in unspecified wrist M25.539 and Back pain, thoracic M54.6 [facility] [id number] [place] [address] 65781 -8151 Jun, Strain of right wrist, initial encounter S66.911A [place] [address] 66350- 1358 Jun, Chronic pancreatitis, unspecified pancreatitis type K86.1 ; Hirsuties L68.0 ; Morbid (severe) obesity due to excess calories E66.01 ; Chronic pancreatitis K86.1 and Asthma J45.909 [place] [id number] [place] [address] 41116- 6918 May, [place] [id number] [place] [address] 67836- 0241 May, Hyperlipidemia, mixed E78.2 and Muscle spasm of back M62.830 [place] [id number] [place] [address] 39414- 0389 Apr, [place] [id number] [place] [address] 52963- 8216 Apr, Torticollis M43.6 [place] [id number] [place] [address] 06902- 5935 Apr, Right-sided thoracic back pain M54.6 [place] [id number] [place] [address] 88380- 5563 Mar, Rash R21 [place] [id number] [place] [address] 93085- 4625 Mar, [place] [address] [address]- 7630 Jan, [facility] [id number] [place] [address] 42463- 3491 Dec, [facility] [id number] [place] [address] 35344- 7905 Dec, Urinary frequency 788.41 and Nocturia more than twice per night 788.43 [facility] [id number] [place] [address] 94181- 3548 Nov, [facility] [id number] [place] [address] 04560- 8661 Nov, [facility] [id number] [place] [address] 51718- 7076 Nov, Abdominal pain 789.00 [facility] [id number] [place] [address] 57545- 3893 October, TDAP DX V06.1 [facility] [id number] [place] [address] 44149- 6833 October, [facility] [id number] [place] [address] 15892- 3653 October, Disturbance of skin sensation 782.0 ; Wrist pain, right 719.43 ; Hyperlipidemia 272.4 and Skin lesion of face 709.9 [facility] [address] [place] [address] 92284- 4852 Sep, [facility] [id number] [place] [address] 84998- 0820 Sep, [facility] [id number] [place] [address] 468562- 5241 Aug, [facility] [id number] [address]- 1376 Aug, [facility] [id number] [place] [address] 27624- 2855 Aug, [facility] [place] [facility] [address] [id number] [place] [address]- 1674 23 Aug, 2014 [facility] [place] [facility] [address] [id number] [place] [address]- 7398 16 Aug, 2014 [facility] [place] [facility] [address] [id number] [place] [address]- 0159 16 Aug, 2014 [facility] [place] [facility] [address] [id number] [place] [address]- 0616 14 Aug, 2014 [facility] [place] [facility] [address] [id number] [place] [address]- 4532 14 Aug, 2014 [facility] [place] [facility] [address] [id number] [place] [address]- 7944 Aug, [facility] [place] [facility] [address] [id number] [place] [address]- 5745 Aug, [facility] [place] [facility] [address] [id number] [place] [address]- 1969 Aug, [facility] [place] [facility] [address] [id number] [place] [address]- 4073 Aug, [facility] [place] [facility] [address] [id number] [place] [address]- 7513 Aug, [facility] [place] [facility] [address] [id number] [place] [address]- 2794 Aug, [facility] [place] [facility] [address] [id number] [place] [address]- 3638 Jul, 2014 [facility] [place] [facility] [address] [id number] [place] [address]- 3232 Jul, [facility] [place] [facility] [address] [id number] [place] [address]- 9586 Jul, [facility] [place] [facility] [address] [id number] [place] [address]- 0754 Jul, [facility] [place] [facility] [address] [id number] [place] [address]- 1155 04 Jul, 2014 [facility] [address] [id number] [place] [address]- 2655 Jul, [facility] [address] [id number] [place] [address]- 2924 Jun, [facility] [address] [id number] [place] [address]- 9422 Jun, [facility] [address] [id number] [place] [address]- 0587 Jun, [facility] [address] [id number] [place] [address]- 0190 Jun, [facility] [address] [id number] [place] [address]- 2063 Jun, [facility] [address] [id number] [place] [address]- 8046 Jun, [facility] [address] [id number] [place] [address]- 2800 Jun, [facility] [address] [id number] [place] [address]- 2670 Jun, [facility] [address] [facility] [id number] [place] [address]- 3916 May, [facility] [place] [place] [facility] [address] [id number] [place] [address]- 9789 May, [facility] [address] [id number] [place] [address]- 4492 18 May, 2014 [facility] [place] [facility] [address] [id number] [place] [address]- 7999 18 May, 2014 [facility] [place] [facility] [address] [id number] [place] [address]- 9484 15 May, 2014 [facility] [place] [place] [facility] [address] [id number] [place] [address]- 3512 May, [facility] [place] [facility] [address] [id number] [place] [address]- 7241 May, [facility] [place] [facility] [address] [id number] [place] [address]- 4022 May, [facility] [place] [facility] [address] [id number] [place] [address] May, [facility] [place] [facility] [address] [id number] [place] [address] May, [facility] [place] [facility] [address] [id number] [place] [address] May, [facility] [place] [facility] [address] [id number] [place] [address] May, [facility] [place] [facility] [address] [id number] [place] [address] Apr, [facility] [place] [facility] [address] [id number] [place] [address] Apr, [facility] [place] [facility] [address] [id number] [place] [address] Apr, [facility] [place] [facility] [address] [id number] [place] [address] Apr, [facility] [place] [facility] [address] [id number] [place] [address] Apr, [facility] [place] [facility] [address] [id number] [address] Apr, [facility] [place] [facility] [address] [id number] [place] [address]- [address] Apr, [facility] [place] [facility] [address] [id number] [place] [address] Apr, [facility] [place] [facility] [address] [id number], [place] [address] 13 Apr, 2014 [facility] [place] [facility] [address] [id number], [place] [address] Apr, [facility] [place] [facility] [address] [id number] [place] [address] Apr, [facility] [place] [facility] [address] [id number] [place] [address] Apr, [facility] [place] [facility] [address] [facility] [id number] [place] [address] Mar, [facility] [place] [facility] [address] [id number] [place] [address] Mar, [facility] [place] [facility] [address] [id number] [place] [address] Mar, [facility] [place] [facility] [address] [id number] [place] [address]- [address] Mar, [facility] [place] [facility] [address] [facility] [id number] [place] [address] Feb, [facility] [place] [facility] [address] [id number] [place] [address] Feb, [facility] [place] [facility] [address] [facility] [id number] [place] [address]- [address] Feb, [facility] [place] [facility] [address] [facility] [id number] [place] [address] Feb, [facility] [place] [facility] [address] [facility] [id number] [place] [address] Feb, [facility] [place] [facility] [address] [id number] [place] [address] Feb, [facility] [place] [facility] [address] [id number] [place] [address] Jan, [facility] [place] [facility] [address] [id number] [place] [address] Jan, [facility] [place] [facility] [address] [facility] [id number] [place] [address]- [address] Jan, [facility] [place] [facility] [address] [id number] [place] [address] Jan, [facility] [place] [facility] [address] [id number] [place] [address] Jan, [facility] [place] [facility] [address] [id number] [place] [address] Jan, [facility] [place] [facility] [address] [id number] [place] [address] Jan, [facility] [place] [facility] [address] [id number] [place] [address] Jan, [facility] [place] [facility] [address] [id number] [place] [address] Jan, [facility] [place] [facility] [address] [id number] [place] [address] Jan, [facility] [place] [facility] [address] [id number] [place] [address] Jan, [facility] [place] [facility] [address] [id number] [place] [address]- [address] Jan, [facility] [place] [facility] [address] [id number] [place] [address]- [address] Jan, [facility] [place] [facility] [address] [id number] [place] [address] Jan, [facility] [place] [facility] [address] [id number] [place] [address] Dec, [facility] [place] [facility] [address] [id number] [place] [address] Dec, [facility] [place] [facility] [address] [id number] [place] [address] 4213 Dec, [facility] [place] [facility] [address] [id number] [place] [address]10 Dec, [facility] [place] [facility] [address] [id number] [place] [address] 9210 Nov, [facility] [place] [facility] [address] [id number] [place] [address] 8731 Nov, [facility] [place] [facility] [address] [id number] [place] [address] 6041 Nov, [facility] [place] [facility] [address] [id number] [place] [address] 3108 Nov, [facility] [place] [facility] [address] [id number] [place] [address] 2097 Nov, [facility] [place] [facility] [address] [id number] [place] [address] 64[address] October, [facility] [place] [facility] [address] [id number] [place] [address] 9341 October, [facility] [place] [facility] [address] [id number] [place] [address] 4457 October, [facility] [place] [facility] [address] [id number] [place] [address]- 0905 October, [facility] [place] [facility] [address] [id number] [place] [address] 9[address] October, [facility] [place] [facility] [address] [id number] [place] [address] 3089 October, [facility] [place] [facility] [address] [id number] [place] [address]- 9498 October, [facility] [place] [facility] [address] [id number] [place] [address]- 4645 October, [facility] [place] [facility] [address] [id number] [place] [address]- 9039 October, [facility] [place] [facility] [address] [id number] [place] [address]- 6806 October, [facility] [place] [facility] [address] [id number] [place] [address]- 4498 October, [facility] [place] [facility] [address] [id number] [place] [address]- 9766 October, [facility] [address] [id number] [place] [address]- 7105 October, [facility] [place] [facility] [address] [id number] [place] [address]- 4896 October, [facility] [place] [facility] [address] [id number] [place] [address]- 5200 Sep, [facility] [place] [facility] [address] [id number] [place] [address]- 4545 Sep, [facility] [place] [facility] [address] [id number] [place] [address]- 5956 Sep, [facility] [place] [facility] [address] [id number] [place] [address]- 0123 Sep, [facility] [place] [facility] [address] [id number] [place] [address]- 6797 Sep, [facility] [place] [facility] [address] [id number] [place] [address]- 2714 Sep, [facility] [place] [facility] [address] [id number] [place] [address]- 8670 Sep, [facility] [place] [facility] [address] [id number] [place] [address]- 6773 Sep, [facility] [place] [facility] [address] [id number] [place] [address]- 0978 Sep, [facility] [place] [facility] [address] [id number] [place] [address]- 7944 Sep, [facility] [place] [facility] [address] [id number] [place] [address]- 7428 Sep, [facility] [place] [facility] [address] [id number] [place] [address]- 4687 Sep, [facility] [place] [facility] [address] [id number] [place] [address]- 3633 Sep, [facility] [place] [facility] [address] [id number] [place] [address]- 7646 Sep, [facility] [place] [facility] [address] [id number] [place] [address]- 3561 Sep, [facility] [place] [facility] [address] [id number] [place] [address]- 1122 Aug, [facility] [place] [facility] [address] [id number] [place] [address]- 2920 Aug, [facility] [place] [facility] [address] [id number] [place] [address]- 6562 Aug, [facility] [place] [facility] [address] [id number] [place] [address]- 8455 Aug, [facility] [place] [facility] [address] [id number] [place] [address]- 3925 Jul, [facility] [place] [facility] [address] [id number] [place] [address]- 2973 Jul, [facility] [place] [facility] [address] [id number] [place] [address]- 0626 Jul, [facility] [place] [facility] [address] [id number] [place] [address]- 0110 Jul, [facility] [place] [facility] [address] [id number] [place] [address]- 8742 Jun, [facility] [place] [facility] [address] [id number] [place] [address]- 9278 Jun, [facility] [place] [facility] [address] [id number] [place] [address]- 4912 Jun, [facility] [place] [facility] [address] [id number] [place] [address]- 8650 Jun, [facility] [place] [facility] [address] [id number] [place] [address]- 8508 Jun, [facility] [place] [facility] [address] [id number] [place] [address]- 8180 Jun, [facility] [address] [id number] [place] Jun, [facility] [place] [facility] [address] [id number] [place] [address]- 4921 08 Jun, 2013 [facility] [address] [id number] [place] [address]- 9351 20 May, 2013 [facility] [place] [facility] [address] [id number] [place] [address]- 6903 20 May, 2013 [facility] [address] [id number] [place] [address]- 7655 18 May, 2013 [facility] [place] [facility] [address] [id number] [place] [address]- 3736 18 May, 2013 [facility] [address] [id number] [place] [address]- 6285 17 May, 2013 [facility] [address] [id number] [place] [id number] 17 May, 2013 [facility] [place] [facility] [address] [id number] [place] [address]- 0781 17 May, 2013 [facility] [place] [facility] [address] [id number] [place] [address]- 3729 17 May, 2013 [facility] [address] [id number] [place] [address]- 2368 16 May, 2013 [facility] [place] [facility] [address] [id number] [place] [address]- 5737 16 May, 2013 [facility] [place] [facility] [address] [id number] [place] [address] 14 May, 2013 [facility] [place] [facility] [address] [id number] [place] [address] 14 May, 2013 [facility] [place] [facility] [address] [id number] [place] 1193 13 May, 2013 [facility] [place] [facility] [address] [id number] [place] [address]- 3961 13 May, 2013 [facility] [address] [id number] [place] [address]- 0482 May, [facility] [address] [id number] [place] [address] May, [facility] [address] [id number] [place] [address]- 9295 May, [facility] [address] [id number] [place] [address] May, [facility] [address] [id number] [place] [address]- 1029 Apr, [facility] [address] [id number] [place] [address]- 7098 Apr, [facility] [address] [id number] [place] [address]- 7208 Apr, [facility] [address] [id number] [place] [address]- 1201 Apr, [facility] [address] [id number] [place] [address]- 8591 Aug, [facility] [address] [id number] [place] [address]- 4127 Aug, [facility] [address] [id number] [place] [address]- 8108 Aug, [facility] [address] [id number] [place] [address]- 0878 05 Aug, 2012 [facility] [address] [id number] [place] [address]- 3108 Jul, [facility] [address] [id number] [place] [address]- 4196 Jun, [facility] [address] [id number] [place] [address]- 8614 Jun, [facility] [address] [id number] [place] [address]- 4415 Jun, [facility] [place] [facility] [address] [id number] [place] [address]- 6240 Jun, [facility] [place] [facility] [address] [id number] [place] [address]- 5217 May, [facility] [place] [facility] [address] [id number] [place] [address]- 2228 May, [facility] [place] [facility] [address] [id number] [place] [address]- 4308 May, [facility] [place] [facility] [address] [id number] [place] [address]- 1516 May, [facility] [place] [facility] [address] [id number] [place] [address]- 9818 May, [facility] [place] [facility] [address] [id number] [place] [address]- 6471 May, [facility] [place] [facility] [address] [id number] [place] [address]- 7103 May, [facility] [place] [facility] [address] [id number] [place] [address]- 0437 Apr, [facility] [place] [facility] [address] [id number] [place] [address]- 7674 Apr, [facility] [place] [facility] [address] [id number] [address]- 0552 Apr, [facility] [place] [facility] [address] [id number] [place] [address]- 0246 Apr, [facility] [place] [facility] [address] [id number] [place] [address]- 6456 Apr, [facility] [place] [facility] [address] [id number] [place] [address]- 3970 Apr, [facility] [place] [facility] [address] [id number] [place] [address]- 2189 Apr, [facility] [place] [facility] [address] [id number] [place] [address]- 3643 Mar, [facility] [place] [facility] [address] [id number] [place] Mar, [facility] [place] [facility] [address] [id number] [place] [address]- 5051 Mar, [facility] [place] [facility] [address] [id number] [place] Mar, [facility] [place] [facility] [address] [id number] [place] Mar, [facility] [place] [facility] [address] [id number] [place] [address]- 0131 Mar, [facility] [place] [facility] [address] [id number] [place] [address]- 4800 Mar, [facility] [place] [facility] [address] [id number] [place] [address]- 0773 Mar, [facility] [place] [facility] [address] [id number] [place] [address]- 5978 Mar, [facility] [place] [facility] [address] [facility] [id number] [place] [address]- 1007 15 Mar, 2012 [facility] [place] [facility] [address] [id number] [place] [address]- 0169 Mar, [facility] [place] [facility] [address] [id number] [address]- 3374 Mar, [facility] [place] [facility] [address] [id number] [place] [address]- 4541 06 Feb, 2012 [facility] [place] [facility] [address] [id number] [place] [address]- 9257 Jan, [facility] [place] [facility] [address] [facility] [id number] [address]- 1402 14 Jan, 2012 [facility] [place] [facility] [address] [id number] [place] [address]- 6392 Jan, [facility] [place] [facility] [address] [id number] [place] [address]- 7594 Jan, [facility] [place] [facility] [address] [id number] [place] [address]- 1456 Jan, [facility] [place] [facility] [address] [id number] [place] [address]- 4885 Dec, [facility] [place] [facility] [address] [id number] [place] [address]- 5438 Dec, [facility] [place] [facility] [address] [id number] [place] [address]- 9109 Nov, [facility] [place] [facility] [address] [id number] [place] [address]- 8586 Nov, [facility] [place] [facility] [address] [id number] [place] [address]- 2110 Nov, [facility] [place] [place] [facility] [address] [id number] [place] [address]- 3773 October, [facility] [place] [facility] [address] [id number] [place] [address]- 1985 October, [facility] [place] [facility] [address] [id number] [place] [address]- 6061 October, [facility] [place] [facility] [address] [id number] [place] [address]- 3018 October, [facility] [place] [facility] [address] [id number] [place] [address]- 3872 October, [facility] [place] [facility] [address] [id number] [place] [address]- 7010 October, [facility] [place] [facility] [address] [id number] [place] [address]- 8757 October, [facility] [place] [facility] [address] [id number] [place] [address]- 4430 Sep, [facility] [place] [facility] [address] [id number] [place] [address]- 1579 26 Sep, 2011 [facility] [place] [facility] [address] [id number] [place] [address]- 1963 26 Sep, 2011 [facility] [place] [facility] [address] [id number] [place] [address]- 2645 25 Sep, 2011 [facility] [place] [facility] [address] [id number] [place] [address]- 6037 24 Sep, 2011 [facility] [place] [facility] [address] [id number] [place] [address]- 6835 19 Sep, 2011 [facility] [place] [facility] [address] [id number] [place] [address]- 0753 17 Sep, 2011 [facility] [place] [facility] [address] [id number] [place] [address]- 4189 16 Sep, 2011 [facility] [place] [facility] [address] [id number] [place] [address]- 2129 16 Sep, 2011 [facility] [place] [facility] [address] [id number] [place] [address]- 1386 14 Sep, 2011 [facility] [place] [facility] [address] [id number] [place] [address]- 1461 13 Sep, 2011 [facility] [place] [facility] [address] [id number] [place] [address]- 8904 10 Sep, 2011 [facility] [place] [facility] [address] [id number] [place] [address]- 3513 09 Sep, 2011 [facility] [place] [facility] [address] [id number] [place] [address]- 2714 27 Aug, 2011 [facility] [place] [facility] [address] [id number] [place] [address]- 9686 12 Aug, 2011 [facility] [place] [facility] [address] [id number] [place] [address]- 6250 08 Aug, 2011 [facility] [place] [facility] [address] [id number] [place] [address] 2546 06 Aug, 2011 [facility] [place] [facility] [address] [id number] [place] [address] 2546 28 Jul, 2011 [facility] [place] [facility] [address] [id number] [place] [address] 2546 22 Jul, 2011 [facility] [place] [facility] [address] [id number] [place] [address] 2546 16 Jul, 2011 [facility] [place] [facility] [address] [id number] [place] [address] 2546 15 Jul, 2011 [facility] [place] [facility] [address] [id number] [place] [address]- 2616 14 Jul, 2011 [facility] [place] [facility] [address] [id number] [place] [address]- 1086 10 Jul, 2011 [facility] [place] [facility] [address] [id number] [place] [address]- 4476 30 Jun, 2011 [facility] [place] [facility] [address] [id number] [place] [address]- 2343 Jun, [facility] [place] [facility] [address] [id number] [place] [address]- 6799 Jun, [facility] [place] [facility] [address] [id number] [place] [address]- 8796 Jun, [facility] [place] [facility] [address] [id number] [place] [address] 2546 Jun, [facility] [place] [facility] [address] [id number] [place] [address] 2546 May, [facility] [place] [facility] [address] [id number] [place] [address] 2546 May, [facility] [place] [facility] [address] [id number] [place] [address]- 2546 14 May, 2011 [facility] [place] [facility] [address] [id number] [place] [address]- 3848 14 May, 2011 [facility] [place] [facility] [address] [id number] [place] [address]- 3081 May, [facility] [place] [facility] [address] [id number] [place] [address]- 5221 May, [facility] [place] [facility] [address] [id number] [place] 7671 May, [facility] [place] [facility] [address] [id number] [place] [address]- 6505 Apr, [facility] [place] [facility] [address] [id number] [place] [address]- 1045 Apr, [facility] [place] [facility] [address] [id number] [place] [address]- 7324 Apr, [facility] [place] [facility] [address] [id number] [place] [address]- 9563 Apr, [facility] [place] [facility] [address] [id number] [place] [address]- 1301 Apr, [facility] [place] [facility] [address] [id number] [place] [address]- 6166 Apr, [facility] [place] [facility] [address] [id number] [place] [address]- 3120 Mar, [facility] [place] [facility] [address] [id number] [address]- 2960 Mar, [facility] [place] [facility] [address] [id number], [place] [address]- 6077 Mar, [facility] [place] [facility] [address] [id number] [place] [address]- 6659 Mar, [facility] [place] [facility] [address] [id number], [place] [address]- 7985 Jan, [facility] [place] [facility] [address] [id number], [place] [address]- 2032 Dec, [facility] [place] [facility] [address] [id number] [place] [address]- 1951 13 Dec, 2010 [facility] [address] [id number] [place] [address]- 9676 11 Oct, 2010 [facility] [address] [id number] [place] [address] 2546 20 Sep, 2010 [facility] [address] [id number] [place] [address] 2546 14 Sep, 2010 [facility] [address] [id number] [place] [address] 2546 17 Jul, 2010 [facility] [address] [id number] [place] [address], [place] [address]- 5726 16 Jul, 2010 [facility] [address] [id number] [place] [address]- 7216 31 May, 2010 [facility] [address] [id number] [place] [address] 2546 May, [facility] [address] [id number] [place] [address]- 3118 08 May, 2010 [facility] [address] [id number] [place] [address]- 4696 06 May, 2010 [facility] [address] [id number] [place] [address]- 6260 Apr, [facility] [place] [facility] [address] [id number] [place] [address] 2546 Apr, [facility] [place] [facility] [address] [id number] [place] [address] 2549 Apr, [facility] [place] [facility] [address] [id number] [place] [address] 2542 Apr, [facility] [place] [facility] [address] [id number] [place] [address] 2546 Apr, [facility] [place] [facility] [address] [id number] [place] [address]- 2851 Mar, [facility] [place] [facility] [address] [id number] [place] [address] 14 Mar, 2010 [facility] [place] [facility] [address] [id number] [place] [address] 13 Mar, 2010 [facility] [place] [facility] [address] [id number] [place] [address] 12 Mar, 2010 [facility] [place] [facility] [address] [id number] [place] [address] 20 Jan, 2010 [facility] [place] [facility] [address] [id number] [place] [address] 15 Dec, 2009 [facility] [place] [facility] [address] [id number] [place] [address] 10 Sep, 2009 [facility] [place] [facility] [address] [facility] [id number] [place] [address] 08 May, 2009 [facility] [place] [facility] [address] [id number] [address] 06 May, 2009 [facility] [place] [facility] [address] [id number] [place] [address] 02 May, 2009 [facility] [place] [facility] [address] [id number] [address] 17 Apr, 2009 [facility] [place] [facility] [address] [facility] [id number], [place] [address] 17 Apr, 2009 [facility] [place] [facility] [address] [id number] [address] 10 Apr, 2009 [facility] [place] [facility] [address] [id number] [address] 10 Apr, 2009 [facility] [place] [facility] [address] [id number] [address] 09 Apr, 2009 [facility] [place] [facility] [address] [id number], [place] [address] 15 Mar, 2009 [facility] [place] [facility] [address] [id number] [address] Mar, [facility] [place] [address] [facility] [id number] [place] [address] Jul, IMMUNIZATIONS No Known Immunizations SOCIAL HISTORY Never Assessed REASON FOR VISIT TCM Phone Call/Med Rec PLAN OF CARE VITAL SIGNS MEDICATIONS Unknown [...] 08/2017 Surgical History nephrectomy 03/2017 Hospitalization History Cellulitis-[facility] 12/20/15 Hospitalization History [facility]- Abd pain 03/07/2017 Hospitalization History [facility]- Abd pain 03/14/2017 Hospitalization History [facility]- No bowel movement, rash 04/13/2017 Hospitalization History [facility]- Abd pain r/t kidney surgery on 04/17/2017 Hospitalization History [facility]- Abd pain r/t kidney surgery on 04/18/2017 Hospitalization History [facility]- Lower abd pain 04/30/2017 Hospitalization History [facility]- Cannot urinate 05/30/2017 Hospitalization History [facility]- Pancreatitis Sx 06/29/2017 Hospitalization History [facility]- Stomach pain 07/22/2017 Hospitalization History [facility]- Left side pain 08/12/2017 Hospitalization History [facility]- Incision site infection 08/30/2017 Hospitalization History [facility]- Post Op Seroma/Hematoma Left Abdomen. Discharged 09/04/17- Dr Daniel 09/02/2017 Hospitalization History [facility]- Right shoulder and back pain 2017 Hospitalization History [facility]- Shoulder/Back pain 11/11/2017 Hospitalization History [facility]- Right shoulder blade pain 12/04/[address] [facility]- C-Diff 12/13/2017 Hospitalization History C diff et MRSA 12/27/2017
--- OUTSIDE RECORDS SUMMARY | 2018-02-24 14:21 | XMS REPORT ---
Author Author SAI CARMEN [facility] Address [address] [place] [address] Care Team Providers Care Options Advisor Name Role Phone CARMEN GIBBS Unavailable PROBLEMS Type Condition ICD9-CM Code CKU22-OS Code Onset Dates Condition Status SNOMED Code Problem Polydipsia R63.1 Active 22876092 Problem Trichotillomania F63.3 Active 86486117 Problem Atelectasis J98.11 Active 56094295 Problem Intestinal malabsorption, unspecified K90.9 Active 48778460 Problem Chronic fatigue R53.82 Active 29052363 Problem Generalized social phobia F40.11 Active 11213186 Problem Restless leg syndrome G25.81 Active 53531332 Problem Moderate episode of recurrent major depressive disorder F33.1 Active 338549150 Problem Chronic post-traumatic stress disorder (PTSD) F43.12 Active 358361842 Problem History of renal cell carcinoma Z85.528 Active 042819852 Problem Chronic tension-type headache, intractable G44.221 Active 229350419 Problem Nodule of left lung R91.1 Active 787560961 Problem Hirsuties L68.0 Active 891369988 Problem FH: polycystic ovary Z84.2 Active 919178060 Problem Morbid (severe) obesity due to excess calories E66.01 Active 734192717 Problem Chronic pancreatitis K86.1 Active 140012738 Problem Hyperlipidemia, mixed E78.2 Active 268454394 Problem Asthma J45.909 Active [id number] ALLERGIES No Information ENCOUNTERS Encounter Location Date Diagnosis [facility] [address] [facility] [id number] [address] Mar, [facility] [id number] [address] Feb, [facility] [address] [id number] [address] 3971 Jan, Acute pain of right knee M25.561 ; Right upper quadrant abdominal pain R10.11 and BMI 45.0-49.9, adult Z68.42 [facility] [id number] [place] [address] 22398- 4608 Jan, [facility] [id number] [place] [address] 63567- 7808 Jan, [facility] [id number] [place] [address] 46831- 7699 Dec, [facility] [id number] [place] [address] 57013- 0145 Dec, Intestinal malabsorption, unspecified K90.9 and Diarrhea, unspecified R19.7 [place] [id number] [place] [address] 48281- 3241 Dec, [facility] [id number] [place] [address] 78113- 4381 Dec, Strep throat J02.0 ; Intestinal malabsorption, unspecified K90.9 ; Diarrhea, unspecified R19.7 ; Postoperative seroma involving digestive system after non-digestive system procedure K91.873 ; Hyperlipidemia, mixed E78.2 and BMI 45.0-49.9, adult Z68.42 [facility] [id number] [place] [address] 19695- 1982 Dec, [facility] [id number] [place] [address] 95538- 3028 Dec, Nausea R11.0 [facility] [id number] [place] [address] 35659- 8157 Dec, [facility] [id number] [place] [address] 24930 -0386 Dec, Sore throat J02.9 ; Strep throat J02.0 and BMI 45.0-49.9, adult Z68.42 [facility] [id number] [place] [address] 76735- 4035 Dec, [facility] [id number] [place] [address] 0852 Dec, [facility] [address], [place] [address] 1835 Dec, [facility] [id number] [place] [address]- 9001 Dec, [facility] [address], [place] [address] 9206 Dec, [facility] [id number] [place] [address]- 1562 Dec, [facility] [address], [place] [address]- 4975 Dec, [facility] [address], [place] [address] 3783 Dec, [facility] [address], [place] [address] 2884 Dec, Clostridium difficile colitis A04.72 ; Intractable vomiting with nausea, unspecified vomiting type R11.2 and BMI 45.0-49.9, adult Z68.42 [facility] [address], [place] [address] 3159 Dec, [facility] [address] [address]- 8585 Nov, [facility] [address], [place] [address]- 6827 Nov, [facility] [address], [place] [address]- 0494 Nov, [facility] [address], [place] [address] 4003 Nov, [facility] [address], [place] [address] Nov, [place] [address], [place] [address]- 0256 Nov, Hyperlipidemia, mixed E78.[address] [facility] [id number] [place] [address] 95232 -4443 Nov, Acute suppurative otitis media of right ear without spontaneous rupture of tympanic membrane, recurrence not specified H66.001 and BMI 45.0-49.9, adult Z68.42 [place] [id number] [place] [address] 96377- 8583 Nov, Hyperlipidemia, mixed E78.2 [place] [id number] [place] [address] 65767- 0071 Nov, [place] [id number] [place] [address] 74805- 1822 Nov, [address] [address]- 2739 Nov, Nodule of left lung R91.1 [address] [id number] [place] [address] 63122- 0110 Nov, Medicare annual wellness visit, initial Z00.00 [...] adult Z68.42 and Encounter for immunization Z23 [address] [id number] [place] [address] 60515- 5070 October, [id number] [place] [address] 19116- 8986 October, Nodule of left lung R91.1 [id number] [place] [address] 05933- 6487 October, Nodule of left lung R91.1 [place] [id number] [place] [address] 28530- 3676 October, Recurrent major depressive disorder, in partial remission F33.41 ; Restless leg syndrome G25.81 ; Generalized social phobia F40.11 ; Chronic post-traumatic stress disorder (PTSD) F43.12 ; BMI 45.0-49.9, adult Z68.42 and Trichotillomania F63.3 [place] [id number] [place] [address] 71089- 5439 October, [place] [id number] [place] [address] 12787- 1414 Sep, Chronic fatigue R53.82 and BMI 45.0-49.9, adult Z68.42 [place] [id number] [place] [address] 75726- 5222 Aug, [place] [id number] [place] [address] 73342- 4598 Jul, Restless leg syndrome G25.81 and B12 deficiency E53.8 [id number] [place] [address] 39401- 0582 Jul, [place] [id number] [place] [address] 86713- 6052 Jul, [place] [id number] [place] [address] 40403- 5041 Jun, [place] [id number] [place] [address] 73370- 4855 Jun, Fatigue, unspecified type R53.83 ; History of renal cell carcinoma Z85.528 ; Chronic pancreatitis K86.1 ; Restless leg syndrome G25.81 ; Dark urine R82.99 and BMI 45.0-49.9, adult Z68.42 [place] [id number] [place] [address] 47000- 8056 Jun, [facility] [id number], [place] [address]- 6301 Jun, [facility] [address], [place] [address]- 1448 Jun, [facility] [id number], [place] [address]- 8592 Jun, [facility] [address] 7616 May, Chronic post-traumatic stress disorder (PTSD) F43.12 ; Moderate episode of recurrent major depressive disorder F33.1 ; Trichotillomania F63.3 and Generalized social phobia F40.11 [facility] [address] [address]- 1759 May, [facility] [address], [place] [address]- 8855 May, Chronic post-traumatic stress disorder (PTSD) F43.12 ; Moderate episode of recurrent major depressive disorder F33.1 ; Trichotillomania F63.3 and Generalized social phobia F40.11 [facility] [id number], [place] [address]- 9060 May, Hyperlipidemia, mixed E78.2 ; Morbid (severe) obesity due to excess calories E66.01 ; Chronic post-traumatic stress disorder (PTSD) F43.12 ; Moderate episode of recurrent major depressive disorder F33.1 ; Trichotillomania F63.3 and Generalized social phobia F40.11 [facility] [id number], [place] [address]- 5801 Apr, [facility] [address], [place] [address]- 9119 Apr, Hyperlipidemia, mixed E78.2 ; Morbid (severe) obesity due to excess calories E66.01 ; Chronic post-traumatic stress disorder (PTSD) F43.12 ; Moderate episode of recurrent major depressive disorder F33.1 ; Trichotillomania F63.3 and Generalized social phobia F40.11 [facility] [id number] [place] [address] 82202- 9870 Apr, Trichotillomania F63.3 ; Generalized social phobia F40.11 ; Chronic post-traumatic stress disorder (PTSD) F43.12 and Moderate episode of recurrent major depressive disorder F33.1 [place] [id number] [place] [address] 08930- 5421 Apr, [facility] [id number] [place] [address] 94540- 0336 Apr, [place] [id number] [place] [address] 45344- 0705 Mar, Moderate episode of recurrent major depressive disorder F33.1 ; Trichotillomania F63.3 ; Chronic post-traumatic stress disorder (PTSD) F43.12 ; Generalized social phobia F40.11 and Restless leg syndrome G25.81 [place] [id number] [place] [address] 16189- 6376 Mar, [place] [address] 62691- 2130 Mar, [place] [id number] [place] [address] 95850- 2843 Feb, Left kidney mass N28.89 [place] [id number] [place] [address] 44965- 0892 Jan, [place] [id number] [place] [address] 28504- 7452 Dec, Polydipsia R63.1 ; Chronic pancreatitis K86.1 and Fatigue, unspecified type R53.83 [facility] [id number] [place] [address] 29938- 1095 Nov, [place] [id number] [place] [address] 16492- 7676 Nov, [place] [id number] [place] [address] 97380- 6195 Nov, Headache around the eyes R51 [facility] [id number] [place] [address] 45617- 7584 Nov, [facility] [id number] [place] [address] 13358- 3504 October, STD exposure Z20.2 [facility] [id number] [place] [address] 57186- 7497 October, STD exposure Z20.2 [facility] [id number] [place] [address] 317012- 8226 October, Chronic post-traumatic stress disorder (PTSD) F43.12 ; Generalized social phobia F40.11 ; Trichotillomania F63.3 and Restless leg syndrome G25.81 [place] [id number] [place] [address] 75286- 2807 October, [facility] [id number] [place] [address] 66062- 6636 Sep, [facility] [id number] [place] [address] 97741- 5267 Aug, [facility] [id number] [place] [address] 37216- 8615 Aug, [place] [id number] [place] [address] 93876- 5874 Aug, Neck mass R22.1 [place] [id number] [place] [address] 01123- 4081 Aug, Atelectasis J98.11 [place] [id number] [place] [address] 45789- 1958 28 Jul, 2016 Hyperlipidemia, mixed E78.2 ; Atypical pneumonia J18.9 and Neck mass R22.1 [place] [id number] [place] [address] 34340- 3117 15 Jul, 2016 Hemoptysis R04.[address] [place] [address] 37558- 0766 08 Jul, 2016 Acute non-recurrent pansinusitis J01.40 ; Hemoptysis R04.2 ; Polydipsia R63.1 and Malaise R53.81 [facility] [id number] [place] [address] 32368 -9255 May, Other viral agents as the cause of diseases classified elsewhere B97.89 and Acute upper respiratory infection, unspecified J06.[address] [facility] [id number] [place] [address] 85013 -6316 Mar, Nausea R11.[address] [facility] [id number] [place] [address] 47941 -5270 Dec, Hives L50.9 [place] [id number] [place] [address] 34303- 0084 Dec, [facility] [id number] [place] [address] 65523 -6230 Dec, Cutaneous abscess of limb, unspecified L02.419 ; Cellulitis of unspecified part of limb L03.119 ; Encounter for incision and drainage procedure Z01.89 and Encounter for recheck of abscess following incision and drainage Z[address] [facility] [address] [place] [address] 56467 -6013 Dec, Abscess of leg, right L02.415 [place] [id number] [place] [address] 80224- 0650 08 Dec, 2015 Cellulitis of unspecified part of limb L03.119 and Cutaneous abscess of limb, unspecified L02.419 [place] [address] [place] [address] 66498- 9984 Dec, [place] [address] [place] [address] 60468- 8123 Dec, [facility] [id number] [place] [address] 03801 -0225 Aug, [facility] [id number] [place] [address] 62577- 1118 Aug, [facility] [id number] [place] [address] 05714 -5861 04 Jul, 2015 Pain in unspecified wrist M25.539 and Back pain, thoracic M54.6 [facility] [id number] [place] [address] 83876 -5841 13 Jun, 2015 Strain of right wrist, initial encounter S66.911A [place] [address] 73829- 5833 Jun, Chronic pancreatitis, unspecified pancreatitis type K86.1 ; Hirsuties L68.0 ; Morbid (severe) obesity due to excess calories E66.01 ; Chronic pancreatitis K86.1 and Asthma J45.909 [place] [id number] [place] [address] 33483- 1607 May, [place] [id number] [place] [address] 82192- 4160 May, Hyperlipidemia, mixed E78.2 and Muscle spasm of back M62.830 [place] [id number] [place] [address] 49012- 1226 Apr, [place] [id number] [place] [address] 64258- 9457 Apr, Torticollis M43.6 [place] [id number] [place] [address] 03629- 7757 Apr, Right-sided thoracic back pain M54.6 [place] [id number] [place] [address] 46833- 6118 Mar, Rash R21 [place] [id number] [place] [address] 71545- 1616 Mar, [place] [address] [address]- 1899 Jan, [facility] [id number] [place] [address] 460939- 0243 Dec, [facility] [id number] 3918 Dec, Urinary frequency 788.41 and Nocturia more than twice per night 788.43 [facility] [id number] [place] [address] 98136- 5653 Nov, [facility] [id number] [place] [address] 699066- 7851 Nov, [facility] [id number] [place] [address] 08594- 0900 Nov, Abdominal pain 789.00 [facility] [id number] [place] [address] 78031- 0378 October, TDAP DX V06.1 [facility] [id number] [place] [address] 12445- 5334 October, [facility] [id number] [place] [address] 448272- 9144 October, Disturbance of skin sensation 782.0 ; Wrist pain, right 719.43 ; Hyperlipidemia 272.4 and Skin lesion of face 709.9 [facility] [address] [address]- 6158 Sep, [facility] [address], [place] [address]- 4689 Sep, [facility] [id number] [place] [address] 654421- 2277 Aug, [facility] [address] [address]- 4427 Aug, [facility] [id number] [place] [address] 58801573- 6728 23 Aug, 2014 [facility] [place] [facility] [address] [id number] [place] [address]- 4894 23 Aug, 2014 [facility] [place] [facility] [address] [id number] [place] [address]- 4481 16 Aug, 2014 [facility] [place] [facility] [address] [id number] [place] [address]- 0375 16 Aug, 2014 [facility] [place] [facility] [address] [id number] [place] [address]- 1248 14 Aug, 2014 [facility] [place] [facility] [address] [id number] [place] [address]- 8521 14 Aug, 2014 [facility] [place] [facility] [address] [id number] [place] [address]- 3929 Aug, [facility] [place] [facility] [address] [id number] [place] [address]- 6696 Aug, [facility] [place] [facility] [address] [id number] [place] [address]- 3817 04 Aug, 2014 [facility] [place] [facility] [address] [id number] [place] [address]- 1889 Aug, [facility] [place] [facility] [address] [id number] [place] [address]- 5523 Aug, [facility] [place] [facility] [address] [id number] [place] [address]- 5035 Aug, [facility] [place] [facility] [address] [id number] [address]- 2985 Jul, 2014 [facility] [place] [facility] [address] [id number] [place] [address]- 3789 Jul, 2014 [facility] [place] [facility] [address] [id number] [place] [address]- 8396 Jul, 2014 [facility] [place] [facility] [address] [id number] [place] [address]- 7960 Jul, [facility] [place] [facility] [address] [id number] [place] [address]- 1283 Jul, [facility] [address] [id number] [place] [address]- 9485 Jul, [facility] [address] [id number] [place] [address]- 5481 Jun, [facility] [address] [id number] [place] [address]- 9439 Jun, [facility] [address] [id number] [place] [address]- 5869 Jun, [facility] [address] [id number] [place] [address]- 9322 Jun, [facility] [address] [id number] [place] [address]- 5368 Jun, [facility] [address] [id number] [place] [address]- 0214 Jun, [facility] [address] [id number] [place] [address]- 5762 Jun, [facility] [address] [id number] [place] [address]- 1179 Jun, [facility] [address] [id number] [place] [address]- 7436 May, [facility] [place] [facility] [address] [id number] [place] [address] May, [facility] [address] [id number] [place] [address] 18 May, 2014 [facility] [place] [facility] [address] [id number] [place] [address] 18 May, 2014 [facility] [place] [facility] [address] [id number] [place] [address] 15 May, 2014 [facility] [place] [facility] [address] [id number] [place] [id number] May, [facility] [place] [facility] [address] [id number] [place] [address] May, [facility] [place] [facility] [address] [id number] [place] [address] May, [facility] [place] [facility] [address] [id number] [place] [address] May, [facility] [place] [facility] [address] [id number] [place] [address] May, [facility] [place] [facility] [address] [id number] [place] [address] May, [facility] [place] [facility] [address] [id number] [place] [address] May, [facility] [place] [facility] [address] [id number] [place] [address] Apr, [facility] [place] [facility] [address] [id number] [place] [address] Apr, [facility] [place] [facility] [address] [id number] [place] [address] Apr, [facility] [place] [facility] [address] [id number] [place] [address] Apr, [facility] [place] [facility] [address] [id number] [place] [address] Apr, [facility] [place] [facility] [address] [id number] [place] [address] Apr, [facility] [place] [facility] [address] [id number] [place] [address] Apr, [facility] [place] [facility] [address] [id number] [place] [address] Apr, [facility] [place] [facility] [address] [id number] [place] [address] Apr, [facility] [place] [facility] [address] [id number] [place] [address] Apr, [facility] [place] [facility] [address] [id number] [place] [address] Apr, [facility] [place] [facility] [address] [id number] [place] [address] Apr, [facility] [place] [facility] [address] [id number] [place] [address] Mar, [facility] [place] [facility] [address] [id number] [place] [address] Mar, [facility] [place] [facility] [address] [id number] [place] [address] Mar, [facility] [place] [facility] [address] [id number] [place] [address] Mar, [facility] [place] [facility] [address] [id number] [place] [address] 10 Feb, 2014 [facility] [place] [facility] [address] [id number] [place] [address] 10 Feb, 2013 [facility] [place] [facility] [address] [id number] [place] [address] 05 Feb, 2013 [facility] [place] [facility] [address] [id number] [place] [address] 05 Feb, 2013 [facility] [place] [facility] [address] [id number] [place] [address] Feb, 2013 [facility] [place] [facility] [address] [id number] [place] [address] Feb, 2013 [facility] [place] [facility] [address] [id number] [place] [address] Jan, [facility] [place] [facility] [address] [id number] [place] [address] Jan, [facility] [place] [facility] [address] [id number] [place] [address] Jan, [facility] [place] [facility] [address] [id number] [facility] [place] [address] Jan, [facility] [place] [facility] [address] [id number] [facility] [place] [address] Jan, [facility] [place] [facility] [address] [id number] [place] [address] Jan, [facility] [place] [facility] [address] [id number] [place] [address] Jan, [facility] [place] [facility] [address] [address] [id number] [place] [address] Jan, [facility] [place] [facility] [address] [id number] [place] [address] Jan, [facility] [place] [facility] [address] [id number] [place] [address]231 Jan, [facility] [place] [facility] [address] [id number] [place] [address]40 Jan, [facility] [place] [facility] [address] [id number] [place] [address] 8255 Jan, [facility] [place] [facility] [address] [id number] [place] [address] 1315 Jan, [facility] [place] [facility] [address] [id number] [place] [address] 8338 Jan, [facility] [place] [facility] [address] [id number] [place] [address] 7203 Dec, [facility] [place] [facility] [address] [id number] [place] [address]- 3673 Dec, [facility] [place] [facility] [address] [id number] [place] [address]- 2073 Dec, [facility] [place] [facility] [address] [id number] [place] [address] Dec, [facility] [place] [facility] [address] [id number] [place] [address]- 2490 Nov, [facility] [place] [facility] [address] [id number] [place] [address]- 5043 Nov, [facility] [place] [facility] [address] [id number] [place] [address]- 9126 Nov, [facility] [place] [facility] [address] [id number] [place] [address]- 0609 Nov, [facility] [place] [facility] [address] [id number] [place] [address]- 0895 Nov, [facility] [place] [facility] [address] [id number] [place] [address]- 5126 October, [facility] [place] [facility] [address] [id number] [place] [address]- 4606 October, [facility] [place] [facility] [address] [id number] [place] [address]- 1572 October, [facility] [place] [facility] [address] [id number] [place] [address]- 0742 October, [facility] [place] [facility] [address] [id number] [place] [address]- 0862 October, [facility] [place] [facility] [address] [id number] [place] [address]- 3161 October, [facility] [place] [facility] [address] [id number] [place] [address]- 4724 October, [facility] [place] [facility] [address] [id number] [place] [address]- 8934 October, [facility] [place] [facility] [address] [id number] [place] [address]- 0879 October, [facility] [place] [facility] [address] [id number] [place] [address]- 1632 October, [facility] [place] [facility] [address] [id number] [place] [address]- 8368 October, [facility] [place] [facility] [address] [id number] [place] [address]- 6213 October, [facility] [place] [facility] [address] [id number] [place] [address]- 7078 October, [facility] [place] [facility] [address] [id number] [place] [address]- 7246 October, [facility] [place] [facility] [address] [id number] [place] [address]- 8563 Sep, [facility] [place] [facility] [address] [id number] [place] [address]- 3532 Sep, [facility] [place] [facility] [address] [id number] [place] [address]- 2144 Sep, [facility] [place] [facility] [address] [id number] [place] [address]- 1843 Sep, [facility] [place] [facility] [address] [id number] [place] [address] Sep, [facility] [place] [facility] [address] [id number] [place] [address]- 1534 Sep, [facility] [place] [facility] [address] [id number] [place] [address]- 1516 Sep, [facility] [place] [facility] [address] [id number] [place] [address]- 9309 Sep, [facility] [place] [facility] [address] [id number] [place] [address]- 4829 Sep, [facility] [place] [facility] [address] [id number] [place] [address]- 2687 Sep, [facility] [place] [facility] [address] [id number] [place] [address]- 2453 Sep, [facility] [place] [facility] [address] [id number] [place] [address]- 7548 Sep, [facility] [place] [facility] [address] [id number] [place] [address]- 2138 Sep, [facility] [place] [facility] [address] [id number] [place] [address]- 0966 Sep, [facility] [place] [facility] [address] [id number] [place] [address]- 3615 Sep, [facility] [place] [facility] [address] [id number] [place] [address]- 5867 Aug, [facility] [place] [facility] [address] [id number] [place] [address]- 5515 Aug, [facility] [place] [facility] [address] [id number] [place] [address]- 9534 Aug, [facility] [place] [facility] [address] [id number] [place] [address]- 4415 Aug, [facility] [place] [facility] [address] [id number] [place] [address]- 3098 Jul, [facility] [place] [facility] [address] [id number] [place] [address]- 0989 Jul, [facility] [place] [facility] [address] [id number] [place] [address]- 4810 Jul, [facility] [place] [facility] [address] [id number] [place] [address]- 3835 Jul, [facility] [place] [facility] [address] [id number] [place] [address]- 2601 Jun, [facility] [place] [facility] [address] [id number] [place] [address]- 6577 Jun, [facility] [place] [facility] [address] [id number] [place] [address]- 6145 Jun, [facility] [place] [facility] [address] [id number] [place] [address]- 5968 Jun, [facility] [place] [facility] [address] [id number] [place] [address]- 2486 Jun, [facility] [place] [facility] [address] [id number] [place] [address]- 2562 10 Jun, 2013 [facility] [address] [id number] [place] [address] Jun, [facility] [place] [facility] [address] [id number] [place] [address]- 4797 08 Jun, 2013 [facility] [address] [id number] [place] [address]- 1781 20 May, 2013 [facility] [place] [facility] [address] [id number] [place] [address]- 1922 20 May, 2013 [facility] [address] [id number] [place] [address]- 9266 18 May, 2013 [facility] [place] [facility] [address] [id number] [place] [address]- 5144 18 May, 2013 [facility] [address] [id number] [place] [address]- 6142 17 May, 2013 [facility] [address] [facility] [id number] [place] [id number] 17 May, 2013 [facility] [place] [facility] [address] [id number] [place] [address]- 9363 17 May, 2013 [facility] [place] [facility] [address] [id number] [place] [address]- 3501 17 May, 2013 [facility] [place] [facility] [address] [id number] [place] [address]- 1242 16 May, 2013 [facility] [place] [facility] [address] [id number] [place] [address]- 0070 16 May, 2013 [facility] [place] [facility] [address] [id number] [place] [address]- 5141 14 May, 2013 [facility] [place] [facility] [address] [id number] [place] [address]- 8239 14 May, 2013 [facility] [place] [facility] [address] [id number] [place] [address]- 5177 13 May, 2013 [facility] [place] [facility] [address] [id number] [place] [address]- 4166 13 May, 2013 [facility] [address] [id number] [place] [address]- 4290 May, [facility] [place] [facility] [address] [id number] [place] [address]- 8436 May, [facility] [address] [id number] [place] [address]- 1666 May, [facility] [place] [facility] [address] [id number] [place] [address]- 5931 May, [facility] [address] [id number] [place] [address]- 2278 Apr, [facility] [place] [facility] [address] [id number] [place] [address]- 4732 Apr, [facility] [place] [facility] [address] [id number] [place] [address]- 7376 Apr, [facility] [address] [id number] [place] [address]- 7004 Apr, [facility] [place] [facility] [address] [id number] [place] [address]- 0431 Aug, [facility] [address] [id number] [place] [address]- 1797 Aug, [facility] [place] [facility] [address] [id number] [place] [address]- 5403 Aug, [facility] [place] [facility] [address] [id number] [place] [address]- 9619 05 Aug, 2012 [facility] [place] [facility] [address] [id number] [place] [address]- 2684 04 Jul, 2012 [facility] [place] [facility] [address] [id number] [place] [address]- 0116 Jun, [facility] [place] [facility] [address] [id number] [place] [address]- 0922 Jun, [facility] [address] [id number] [place] [address]- 2265 Jun, [facility] [place] [facility] [address] [id number] [place] [address]- 9882 Jun, [facility] [place] [facility] [address] [facility] [id number] [place] [address] May, [facility] [place] [facility] [address] [id number] [place] [address]- 5680 May, [facility] [place] [facility] [address] [id number] [place] [address]- 6807 May, [facility] [place] [facility] [address] [id number] [place] [address]- 1729 May, [facility] [place] [facility] [address] [id number] [place] [address]- 5958 May, [facility] [place] [facility] [address] [id number] [place] [address]- 4959 May, [facility] [place] [facility] [address] [id number] [place] [address]- 3020 May, [facility] [place] [facility] [address] [id number] [place] [address]- 7914 Apr, [facility] [place] [facility] [address] [id number], [place] [address]- 7418 Apr, [facility] [place] [facility] [address] [id number], [place] [address]- 7446 Apr, [facility] [place] [facility] [address] [id number] [place] [address]- 1344 Apr, [facility] [place] [facility] [address] [id number] [place] [address]- 6463 Apr, [facility] [place] [facility] [address] [facility] [id number] [place] [address]- 1279 Apr, [facility] [place] [facility] [address] [id number] [place] [address]- 0133 Apr, [facility] [place] [facility] [address] [id number] [place] [address]- 5384 Mar, 2011 [facility] [place] [facility] [address] [id number] [place] [address] Mar, [facility] [place] [facility] [address] [id number] [place] [address]- 2604 Mar, [facility] [place] [facility] [address] [id number] [place] [address]- 9507 Mar, [facility] [place] [facility] [address] [id number] [place] [address] Mar, [facility] [place] [facility] [address] [id number] [place] [address]- 6082 Mar, [facility] [place] [facility] [address] [id number] [place] [address]- 0533 Mar, [facility] [place] [facility] [address] [id number] [place] [address]- 5592 Mar, [facility] [place] [facility] [address] [id number] [place] [address]- 7462 Mar, [facility] [place] [facility] [address] [facility] [id number] [place] [address]- 8813 15 Mar, 2012 [facility] [place] [facility] [address] [id number] [place] [address]- 3380 Mar, [facility] [place] [facility] [address] [id number], [place] [address]- 0691 Mar, [facility] [place] [facility] [address] [id number] [place] [address]- 0287 06 Feb, 2012 [facility] [place] [facility] [address] [id number] [place] [address]- 9220 Jan, [facility] [place] [facility] [address] [id number], [place] [address]- 6736 Jan, [facility] [place] [facility] [address] [id number] [place] [address]- 1895 Jan, [facility] [place] [facility] [address] [id number] [place] [address]- 5871 Jan, [facility] [place] [facility] [address] [id number] [place] [address]- 4630 Jan, [facility] [place] [facility] [address] [id number] [place] [address]- 9612 Dec, [facility] [address] [id number] [place] [address]- 0773 Dec, [facility] [place] [facility] [address] [id number] [place] [address]- 0831 Nov, [facility] [address] [id number] [place] [address]- 7269 Nov, [facility] [address] [id number] [place] [address]- 3695 Nov, [facility] [place] [facility] [address] [id number] [place] [address]- 6894 October, [facility] [address] [id number] [place] [address]- 3714 October, [facility] [place] [facility] [address] [id number] [place] [address]- 5602 October, [facility] [place] [facility] [address] [id number] [place] [address]- 6136 October, [facility] [place] [facility] [address] [id number] [place] [address]- 3941 October, [facility] [place] [facility] [address] [id number] [place] [address]- 4906 October, [facility] [place] [facility] [address] [id number] [place] [address]- 5653 October, [facility] [place] [facility] [address] [id number] [place] [address]- 7838 26 Sep, 2011 [facility] [place] [facility] [address] [id number] [place] [address]- 3754 26 Sep, 2011 [facility] [place] [facility] [address] [id number] [place] [address]- 3565 26 Sep, 2011 [facility] [place] [facility] [address] [id number] [place] [address]- 9887 25 Sep, 2011 [facility] [place] [facility] [address] [id number] [place] [address]- 3152 24 Sep, 2011 [facility] [place] [facility] [address] [id number] [place] [address]- 8899 19 Sep, 2011 [facility] [place] [facility] [address] [id number] [place] [address]- 3841 17 Sep, 2011 [facility] [place] [facility] [address] [id number] [place] [address]- 5372 16 Sep, 2011 [facility] [place] [facility] [address] [id number] [place] [address]- 3495 16 Sep, 2011 [facility] [place] [facility] [address] [id number] [place] [address]- 7268 14 Sep, 2011 [facility] [place] [facility] [address] [id number] [place] [address]- 2645 13 Sep, 2011 [facility] [place] [facility] [address] [id number] [place] [address]- 2114 10 Sep, 2011 [facility] [place] [facility] [address] [id number] [place] [address]- 7356 09 Sep, 2011 [facility] [place] [facility] [address] [id number] [place] [address]- 8444 27 Aug, 2011 [facility] [place] [facility] [address] [id number] [place] [address]- 6307 12 Aug, 2011 [facility] [place] [facility] [address] [id number] [place] [address]- 9817 08 Aug, 2011 [facility] [place] [facility] [address] [id number] [place] [address]- 4989 Aug, [facility] [place] [facility] [address] [id number] [place] [address]- 0256 28 Jul, 2011 [facility] [place] [facility] [address] [id number] [place] [address]- 0166 22 Jul, 2011 [facility] [place] [facility] [address] [id number] [place] [address]- 1216 16 Jul, 2011 [facility] [place] [facility] [address] [id number] [place] [address] 2546 15 Jul, 2011 [facility] [place] [facility] [address] [id number] [place] [address]- 0176 14 Jul, 2011 [facility] [place] [facility] [address] [id number] [place] [address]- 1307 10 Jul, 2011 [facility] [place] [facility] [address] [id number] [place] [address]- 7910 Jun, [facility] [place] [facility] [address] [id number] [place] [address]- 2237 Jun, [facility] [place] [facility] [address] [id number] [place] [address]- 8767 Jun, [facility] [place] [facility] [address] [id number] [place] [address]- 5471 Jun, [facility] [place] [facility] [address] [id number] [place] [address]- 7361 Jun, [facility] [place] [facility] [address] [id number] [place] [address]- 5272 May, [facility] [place] [facility] [address] [id number] [place] [address] 2546 May, [facility] [place] [facility] [address] [id number] [place] [address]- 1119 May, [facility] [place] [facility] [address] [id number] [place] [address]- 1671 14 May, 2011 [facility] [place] [facility] [address] [id number] [place] [address]- 0023 12 May, 2011 [facility] [place] [facility] [address] [id number] [place] [address]- 9767 May, [facility] [place] [facility] [address] [id number] [place] [address]- 5653 May, [facility] [place] [facility] [address] [id number] [place] [address]- 8297 Apr, [facility] [place] [facility] [address] [id number] [place] [address]- 3300 Apr, [facility] [place] [facility] [address] [id number] [place] [address]- 2746 Apr, [facility] [place] [facility] [address] [id number] [place] [address]- 6974 Apr, [facility] [place] [facility] [address] [id number] [place] [address]- 5327 Apr, [facility] [place] [facility] [address] [id number] [place] [address] Apr, [facility] [place] [facility] [address] [id number] [place] [address] Mar, [facility] [place] [facility] [address] [id number], [place] [address] Mar, [facility] [place] [facility] [address] [id number], [place] [address] Mar, [facility] [place] [facility] [address] [id number] [place] [address] Mar, [facility] [place] [facility] [address] [id number], [place] [address] Jan, [facility] [place] [facility] [address] [id number] [place] [address] Dec, [facility] [place] [facility] [address] [id number] [place] [address] 13 Dec, 2010 [facility] [address] [id number] [place] [address] 11 Oct, 2010 [facility] [place] [facility] [address] [id number] [place] [address]46 20 Sep, 2010 [facility] [address] [id number] [place] [address] 14 Sep, 2010 [facility] [address] [id number] [place] [address]46 17 Jul, 2010 [facility] [address] [id number] [place] [address], [place] [address] 16 Jul, 2010 [facility] [address] [id number] [place] [address] 31 May, 2010 [facility] [address] [id number] [place] [address] May, [facility] [address] [id number] [place] [address] 08 May, 2010 [facility] [address] [id number] [place] [address] May, [facility] [address] [id number] [place] [address] Apr, [facility] [place] [facility] [address] [id number] [place] [address]47 Apr, [facility] [address] [id number] [place] [address] Apr, [facility] [place] [facility] [address] [id number] [place] [address] Apr, [facility] [place] [facility] [address] [id number] [place] [address] Apr, [facility] [address] [id number] [place] [address] Mar, [facility] [place] [facility] [address] [id number] [place] [address] 14 Mar, 2010 [facility] [place] [facility] [address] [id number] [place] [address] 13 Mar, 2010 [facility] [place] [facility] [address] [id number] [place] [address] 12 Mar, 2010 [facility] [place] [facility] [address] [id number] [place] [address] 20 Jan, 2010 [facility] [place] [facility] [address] [id number] [place] [address] 15 Dec, 2009 [facility] [place] [facility] [address] [id number], [place] [address] 10 Sep, 2009 [facility] [place] [facility] [address] [facility] [id number] [place] [address] 08 May, 2009 [facility] [place] [facility] [address] [id number], [place] [address] 06 May, 2009 [facility] [place] [facility] [address] [id number], [place] [address] May, [facility] [place] [facility] [address] [facility] [id number], [place] [address] 17 Apr, 2009 [facility] [place] [facility] [address] [id number], [place] [address] 17 Apr, 2009 [facility] [place] [facility] [address] [id number], [place] [address] 10 Apr, 2009 [facility] [place] [facility] [address] [id number], [place] [address]- [address] 10 Apr, 2009 [facility] [place] [facility] [address] [id number], [place] [address] 09 Apr, 2009 [facility] [place] [facility] [address] [facility] [id number], [place] [address] 15 Mar, 2009 [facility] [place] [facility] [address] [id number], [place] [address] Mar, [facility] [address] [facility] [id number] [place] [address] Jul, IMMUNIZATIONS No Known Immunizations SOCIAL HISTORY Never Assessed REASON FOR VISIT vomiting PLAN OF CARE VITAL SIGNS MEDICATIONS Unknown [...] Surgical History nephrectomy 03/2017 Hospitalization History [facility]ulitis-[facility] 12/20/15 Hospital[facility]- Abd pain 03/07/2017 Hospital[facility]- Abd pain 03/14/2017 Hospitalization [facility]- No bowel movement, rash 04/13/2017 Hospitalization History [facility]- Abd pain r/t kidney surgery on 04/17/2017 Hospitalization History [facility]- Abd pain r/t kidney surgery on 04/18/2017 Hospitalization History [facility]- Lower abd pain 04/30/2017 Hospitalization History [facility]- Cannot urinate 05/30/2017 Hospitalization History [facility]- Pancreatitis Sx 06/29/2017 Hospitalization History [facility]- Stomach pain 07/22/2017 Hospitalization History [facility]- Left side pain 08/12/2017 Hospitalization [facility]- Incision site infection 08/30/2017 Hospitalization History [facility]- Post Op Seroma/Hematoma Left Abdomen. Discharged 09/04/17- Dr Daniel 09/02/2017 Hospitalization History [facility]- Right shoulder and back pain 2017 Hospitalization History [facility]- Shoulder/Back pain 11/11/2017 Hospitalization History [facility]- Right shoulder blade pain 12/04/2017 Hospitalization History [facility]- C-Diff 12/13/2017 Hospitalization History C diff et MRSA 12/27/2017
--- OUTSIDE RECORDS SUMMARY | 2018-02-24 14:21 | XMS REPORT ---
Author Author SAI CARMEN [facility] Address [address] [place] [address] Care Team Providers Care Inspector Balance Bridge Name Role Phone CARMEN GIBBS Unavailable PROBLEMS Type Condition ICD9-CM Code FMD46-FV Code Onset Dates Condition Status SNOMED Code Problem Polydipsia R63.1 Active 82434395 Problem Trichotillomania F63.3 Active 05333250 Problem Atelectasis J98.11 Active 66273649 Problem Intestinal malabsorption, unspecified K90.9 Active 74362781 Problem Chronic fatigue R53.82 Active 65250465 Problem Generalized social phobia F40.11 Active 20050592 Problem Restless leg syndrome G25.81 Active 30303534 Problem Moderate episode of recurrent major depressive disorder F33.1 Active 721180519 Problem Chronic post-traumatic stress disorder (PTSD) F43.12 Active 023613712 Problem History of renal cell carcinoma Z85.528 Active 209162641 Problem Chronic tension-type headache, intractable G44.221 Active 564532725 Problem Nodule of left lung R91.1 Active 170254133 Problem Hirsuties L68.0 Active 663456657 Problem FH: polycystic ovary Z84.2 Active 816996848 Problem Morbid (severe) obesity due to excess calories E66.01 Active 508791167 Problem Chronic pancreatitis K86.1 Active 184023269 Problem Hyperlipidemia, mixed E78.2 Active 732305576 Problem Asthma J45.909 Active 341941123 ALLERGIES No Information ENCOUNTERS Encounter Location Date Diagnosis [facility] [address] [facility] [id number] [address] Mar, [facility] [id number], [place] [address] Feb, [facility] [address] [id number], [place] [address] 2886 Jan, Acute pain of right knee M25.561 ; Right upper quadrant abdominal pain R10.11 and BMI 45.0-49.9, adult Z68.42 [facility] [id number] [place] [address] 10608- 1766 Jan, [facility] [id number] [place] [address] 63233- 4517 Jan, [facility] [id number] [place] [address] 09216- 8007 Dec, [facility] [id number] [place] [address] 93192- 8142 Dec, Intestinal malabsorption, unspecified K90.9 and Diarrhea, unspecified R19.7 [place] [id number] [place] [address] 59515- 9979 Dec, [facility] [id number] [place] [address] 50626- 4126 Dec, Strep throat J02.0 ; Intestinal malabsorption, unspecified K90.9 ; Diarrhea, unspecified R19.7 ; Postoperative seroma involving digestive system after non-digestive system procedure K91.873 ; Hyperlipidemia, mixed E78.2 and BMI 45.0-49.9, adult Z68.42 [facility] [id number] [place] [address] 99301- 8502 Dec, [facility] [id number] [place] [address] 29207- 9973 Dec, Nausea R11.0 [facility] [id number] [place] [address] 22076- 7173 Dec, [facility] [id number] [place] [address] 71991 -1101 Dec, Sore throat J02.9 ; Strep throat J02.0 and BMI 45.0-49.9, adult Z68.42 [facility] [id number] [place] [address] 91144- 2560 Dec, [facility] [id number] [place] [address]- 3494 Dec, [facility] [address], [place] [address]- 9941 Dec, [facility] [address] [place] [address]- 9808 Dec, [facility] [address], [place] [address]- 1106 Dec, [facility] [id number] [place] [address]- 5282 Dec, [facility] [address], [place] [address]- 6872 Dec, [facility] [address], [place] [address]- 0305 Dec, [facility] [address], [place] [address]- 8206 Dec, Clostridium difficile colitis A04.72 ; Intractable vomiting with nausea, unspecified vomiting type R11.2 and BMI 45.0-49.9, adult Z68.42 [facility] [address], [place] [address]- 4990 Dec, [facility] [address], [place] [address]- 0800 Nov, [facility] [address], [place] [address]- 2909 Nov, [facility] [address], [place] [address]- 9203 Nov, [facility] [address], [place] [address]- 7844 Nov, [facility] [address], [place] [address]23[address] Nov, [place] [address], [place] [address]- 3335 Nov, Hyperlipidemia, mixed E78.2 [facility] [id number] [place] [address] 18166 -2580 Nov, Acute suppurative otitis media of right ear without spontaneous rupture of tympanic membrane, recurrence not specified H66.001 and BMI 45.0-49.9, adult Z68.42 [place] [id number] [place] [address] 57974- 0261 Nov, Hyperlipidemia, mixed E78.2 [place] [id number] [place] [address] 36527- 7517 Nov, [place] [id number] [place] [address] 00068- 7366 Nov, [address] [address]- 5570 Nov, Nodule of left lung R91.1 [place] [id number] [place] [address] 24243- 0014 Nov, Medicare annual wellness visit, initial Z00.00 [...] adult Z68.42 and Encounter for immunization Z23 [place] [id number] [place] [address] 28237- 0743 October, [place] [id number] [place] [address] 34338- 4633 October, Nodule of left lung R91.1 [place] [id number] [place] [address] 17051- 1576 October, Nodule of left lung R91.1 [place] [id number] [place] [address] 93887- 9043 October, Recurrent major depressive disorder, in partial remission F33.41 ; Restless leg syndrome G25.81 ; Generalized social phobia F40.11 ; Chronic post-traumatic stress disorder (PTSD) F43.12 ; BMI 45.0-49.9, adult Z68.42 and Trichotillomania F63.3 [place] [id number] [place] [address] 17801- 1248 October, [place] [id number] [place] [address] 45456- 0663 Sep, Chronic fatigue R53.82 and BMI 45.0-49.9, adult Z68.42 [place] [id number] [place] [address] 41455- 8693 Aug, [place] [id number] [place] [address] 23061- 9033 Jul, Restless leg syndrome G25.81 and B12 deficiency E53.8 [place] [id number] [place] [address] 16118- 2986 Jul, [place] [id number] [place] [address] 17027- 1438 Jul, [place] [id number] [place] [address] 26502- 3721 Jun, [place] [id number] [place] [address] 15973- 6935 Jun, Fatigue, unspecified type R53.83 ; History of renal cell carcinoma Z85.528 ; Chronic pancreatitis K86.1 ; Restless leg syndrome G25.81 ; Dark urine R82.99 and BMI 45.0-49.9, adult Z68.42 [place] [id number] [place] [address] 40535- 9073 Jun, [facility] [address] [id number], [place] [address]- 5953 Jun, [facility] [address], [place] [address]- 2136 Jun, [facility] [id number], [place] [address]- 8522 Jun, [facility] [address] 5723 May, Chronic post-traumatic stress disorder (PTSD) F43.12 ; Moderate episode of recurrent major depressive disorder F33.1 ; Trichotillomania F63.3 and Generalized social phobia F40.11 [facility] [address], [place] [address]- 9968 May, [facility] [address], [place] [address]- 0329 May, Chronic post-traumatic stress disorder (PTSD) F43.12 ; Moderate episode of recurrent major depressive disorder F33.1 ; Trichotillomania F63.3 and Generalized social phobia F40.11 [facility] [id number], [place] [address]- 9173 May, Hyperlipidemia, mixed E78.2 ; Morbid (severe) obesity due to excess calories E66.01 ; Chronic post-traumatic stress disorder (PTSD) F43.12 ; Moderate episode of recurrent major depressive disorder F33.1 ; Trichotillomania F63.3 and Generalized social phobia F40.11 [facility] [id number], [place] [address]- 3076 Apr, [facility] [address], [place] [address]- 2367 Apr, Hyperlipidemia, mixed E78.2 ; Morbid (severe) obesity due to excess calories E66.01 ; Chronic post-traumatic stress disorder (PTSD) F43.12 ; Moderate episode of recurrent major depressive disorder F33.1 ; Trichotillomania F63.3 and Generalized social phobia F40.11 [facility] [address] [place] [address] 70952- 4218 Apr, Trichotillomania F63.3 ; Generalized social phobia F40.11 ; Chronic post-traumatic stress disorder (PTSD) F43.12 and Moderate episode of recurrent major depressive disorder F33.1 [place] [id number] [place] [address] 76858- 3954 Apr, [facility] [id number] [place] [address] 03215- 7101 Apr, [place] [id number] [place] [address] 13006- 1001 Mar, Moderate episode of recurrent major depressive disorder F33.1 ; Trichotillomania F63.3 ; Chronic post-traumatic stress disorder (PTSD) F43.12 ; Generalized social phobia F40.11 and Restless leg syndrome G25.81 [place] [id number] [place] [address] 69594- 4814 Mar, [place] [address] 93684- 1468 Mar, [place] [id number] [place] [address] 90652- 8638 Feb, Left kidney mass N28.89 [place] [id number] [place] [address] 75929- 3035 Jan, [place] [id number] [place] [address] 11495- 7376 Dec, Polydipsia R63.1 ; Chronic pancreatitis K86.1 and Fatigue, unspecified type R53.83 [facility] [id number] [place] [address] 08861- 2626 Nov, [place] [id number] [place] [address] 02251- 7740 Nov, [place] [id number] [place] [address] 24573- 6719 Nov, Headache around the eyes R51 [facility] [id number] [place] [address] 55051- 6568 Nov, [facility] [id number] [place] [address] 31962- 2246 October, STD exposure Z20.2 [facility] [id number] [place] [address] 24968- 3160 October, STD exposure Z20.2 [facility] [id number] [place] [address] 290833- 7281 October, Chronic post-traumatic stress disorder (PTSD) F43.12 ; Generalized social phobia F40.11 ; Trichotillomania F63.3 and Restless leg syndrome G25.81 [place] [id number] [place] [address] 93827- 0002 October, [facility] [id number] [place] [address] 86997- 2803 Sep, [facility] [id number] [place] [address] 04202- 2697 Aug, [facility] [id number] [place] [address] 68011- 8029 Aug, [place] [id number] [place] [address] 61018- 7169 Aug, Neck mass R22.1 [place] [id number] [place] [address] 33660- 1337 Aug, Atelectasis J98.11 [place] [address] [place] [address] 33639- 9145 28 Jul, 2016 Hyperlipidemia, mixed E78.2 ; Atypical pneumonia J18.9 and Neck mass R22.1 [place] [address] [place] [address] 26546- 7677 15 Jul, 2016 Hemoptysis R04.[address] [place] [address] 96076- 7791 08 Jul, 2016 Acute non-recurrent pansinusitis J01.40 ; Hemoptysis R04.2 ; Polydipsia R63.1 and Malaise R53.81 [facility] [place] [id number] [place] [address] 67086 -5739 May, Other viral agents as the cause of diseases classified elsewhere B97.89 and Acute upper respiratory infection, unspecified J06.9 [facility] [place] [id number] [place] [address] 48042 -6299 Mar, Nausea R11.0 [facility] [place] [place] [id number] [place] [address] 08042 -4206 Dec, Hives L50.9 [place] [id number] [place] [address] 71582- 2765 Dec, [facility] [place] [id number] [place] [address] 69951 -2703 Dec, Cutaneous abscess of limb, unspecified L02.419 ; Cellulitis of unspecified part of limb L03.119 ; Encounter for incision and drainage procedure Z01.89 and Encounter for recheck of abscess following incision and drainage Z09 [facility] [address] [place] [address] 42174 -7920 Dec, Abscess of leg, right L02.415 [place] [id number] [place] [address] 21499- 9936 08 Dec, 2015 Cellulitis of unspecified part of limb L03.119 and Cutaneous abscess of limb, unspecified L02.419 [place] [address] [place] [address] 69436- 6008 Dec, [place] [address] [place] [address] 49899- 6076 Dec, [facility] [address] [place] [address] 61959 -9339 Aug, [facility] [id number] [place] [address] 88602- 7783 Aug, [facility] [id number] [place] [address] 18727 -4942 04 Jul, 2015 Pain in unspecified wrist M25.539 and Back pain, thoracic M54.6 [facility] [id number] [place] [address] 36069 -2248 13 Jun, 2015 Strain of right wrist, initial encounter S66.911A [place] [address] 16563- 6529 Jun, Chronic pancreatitis, unspecified pancreatitis type K86.1 ; Hirsuties L68.0 ; Morbid (severe) obesity due to excess calories E66.01 ; Chronic pancreatitis K86.1 and Asthma J45.909 [place] [id number] [place] [address] 55679- 4112 May, [place] [id number] [place] [address] 70523- 6746 May, Hyperlipidemia, mixed E78.2 and Muscle spasm of back M62.830 [place] [address] [place] [address] 75763- 5322 Apr, [place] [id number] [place] [address] 03502- 2820 Apr, Torticollis M43.6 [place] [address] [place] [address] 80452- 6911 Apr, Right-sided thoracic back pain M54.6 [place] [address] [place] [address] 03705- 6606 Mar, Rash R21 [place] [id number] [place] [address] 76762- 0887 Mar, [place] [address], [place] [address]- 4499 Jan, [facility] [id number] [place] [address] 953958- 7538 Dec, [facility] [address] 5271 Dec, Urinary frequency 788.41 and Nocturia more than twice per night 788.43 [facility] [id number] [place] [address] 19752- 6465 Nov, [facility] [id number] [place] [address] 976977- 3205 Nov, [facility] [id number] [place] [address] 88471- 1652 Nov, Abdominal pain 789.00 [facility] [id number] [place] [address] 36929- 0712 October, TDAP DX V06.1 [facility] [id number] [place] [address] 94034- 6364 October, [facility] [id number] [place] [address] 388754- 9831 October, Disturbance of skin sensation 782.0 ; Wrist pain, right 719.43 ; Hyperlipidemia 272.4 and Skin lesion of face 709.9 [facility] [address], [place] [address]- 0949 Sep, [facility] [address], [place] [address]- 3492 Sep, [facility] [id number] [place] [address] 886582- 9371 Aug, [facility] [address], [place] [address]- 8315 Aug, [facility] [id number] [place] [address] 04063216- 2667 23 Aug, 2014 [facility] [place] [facility] [address] [id number] [place] [address]- 6474 23 Aug, 2014 [facility] [place] [facility] [address] [id number] [place] [address]- 7095 16 Aug, 2014 [facility] [place] [facility] [address] [id number] [place] [address]- 4911 16 Aug, 2014 [facility] [place] [facility] [address] [id number] [place] [address]- 5172 14 Aug, 2014 [facility] [place] [facility] [address] [id number] [place] [address]- 8150 14 Aug, 2014 [facility] [place] [facility] [address] [id number] [place] [address]- 2942 Aug, [facility] [place] [facility] [address] [id number] [place] [address]- 5367 Aug, [facility] [place] [facility] [address] [id number] [place] [address]- 4338 04 Aug, 2014 [facility] [place] [facility] [address] [id number] [place] [address]- 5017 Aug, [facility] [place] [facility] [address] [id number] [place] [address]- 0768 Aug, [facility] [place] [facility] [address] [id number] [place] [address]- 6087 Aug, [facility] [place] [facility] [address] [id number], [place] [address]- 3021 Jul, 2014 [facility] [place] [facility] [address] [id number] [place] [address]- 2920 Jul, 2014 [facility] [place] [facility] [address] [id number] [place] [address]- 0820 Jul, 2014 [facility] [place] [facility] [address] [id number] [place] [address]- 5279 Jul, [facility] [place] [facility] [address] [id number] [place] [address]- 3940 Jul, [facility] [address] [id number] [place] [address]- 7513 Jul, [facility] [address] [id number] [place] [address]- 5632 Jun, [facility] [address] [id number] [place] [address]- 8472 Jun, [facility] [address] [id number] [place] [address]- 6634 Jun, [facility] [address] [id number] [place] [address]- 2130 Jun, [facility] [address] [id number] [place] [address]- 6289 Jun, [facility] [address] [id number] [place] [address]- 0386 Jun, [facility] [address] [id number] [place] [address]- 8006 Jun, [facility] [address] [id number] [place] [address]- 6308 Jun, [facility] [address] [id number] [place] [address]- 4527 May, [facility] [place] [facility] [address] [id number] [place] [address]- 4683 May, [facility] [address] [id number] [place] [address]- 6824 18 May, 2014 [facility] [place] [facility] [address] [id number] [place] [address]- 0277 18 May, 2014 [facility] [place] [facility] [address] [id number] [place] [address]- 8741 15 May, 2014 [facility] [place] [facility] [address] [id number] [place] [address] 0338 May, [facility] [place] [facility] [address] [id number] [place] [address]- 1443 May, [facility] [place] [facility] [address] [id number] [place] [address]- 9494 May, [facility] [place] [facility] [address] [id number] [place] [address]- 4044 May, [facility] [place] [facility] [address] [id number] [place] [address]- 8979 May, [facility] [place] [facility] [address] [id number] [place] [address]- 7068 May, [facility] [place] [facility] [address] [id number] [place] [address] May, [facility] [place] [facility] [address] [id number] [place] [address] Apr, [facility] [place] [facility] [address] [id number] [place] [address] Apr, [facility] [place] [facility] [address] [id number] [place] [address] Apr, [facility] [place] [facility] [address] [id number] [place] [address] Apr, [facility] [place] [facility] [address] [id number] [place] [address] Apr, [facility] [place] [facility] [address] [id number] [place] [address] Apr, [facility] [place] [facility] [address] [id number] [place] [address] Apr, [facility] [place] [facility] [address] [id number] [place] [address] Apr, [facility] [place] [facility] [address] [id number] [place] [address] Apr, [facility] [place] [facility] [address] [id number] [place] [address] Apr, [facility] [place] [facility] [address] [id number] [place] [address] Apr, [facility] [place] [facility] [address] [id number] [place] [address] Apr, [facility] [place] [facility] [address] [id number] [place] [address] Mar, [facility] [place] [facility] [address] [id number] [place] [address] Mar, [facility] [place] [facility] [address] [id number] [place] [address] Mar, [facility] [place] [facility] [address] [id number] [place] [address] Mar, [facility] [place] [facility] [address] [id number] [place] [address] 10 Feb, 2014 [facility] [place] [facility] [address] [id number] [place] [address]- [address] 10 Feb, 2013 [facility] [place] [facility] [address] [id number] [place] [address] 05 Feb, 2013 [facility] [place] [facility] [address] [id number] [place] [address] 05 Feb, 2013 [facility] [place] [facility] [address] [id number] [place] [address] Feb, 2013 [facility] [place] [facility] [address] [id number] [place] [address] Feb, 2013 [facility] [place] [facility] [address] [id number] [place] [address] Jan, [facility] [place] [facility] [address] [id number] [place] [address] Jan, [facility] [place] [facility] [address] [id number] [place] [address] Jan, [facility] [place] [facility] [address] [id number] [facility] [place] [address] Jan, [facility] [place] [facility] [address] [id number] [facility] [place] [address] Jan, [facility] [place] [facility] [address] [id number] [place] [address] Jan, [facility] [place] [facility] [address] [id number] [place] [address] Jan, [facility] [place] [facility] [address] [address] [id number] [place] [address] Jan, [facility] [place] [facility] [address] [id number] [place] [address] 3865 Jan, [facility] [place] [facility] [address] [id number] [place] [address] 7812 Jan, [facility] [place] [facility] [address] [id number] [place] [address] 6418 Jan, [facility] [place] [facility] [address] [id number] [place] [address] 0586 Jan, [facility] [place] [facility] [address] [id number] [place] [address]- 4924 Jan, [facility] [place] [facility] [address] [id number] [place] [address]- 7260 Jan, [facility] [place] [facility] [address] [id number] [place] [address]- 5058 Dec, [facility] [place] [facility] [address] [id number] [place] [address] 8762 Dec, [facility] [place] [facility] [address] [id number] [place] [address]- 5296 Dec, [facility] [place] [facility] [address] [id number] [place] [address] Dec, [facility] [place] [facility] [address] [id number] [place] [address]- 7461 Nov, [facility] [place] [facility] [address] [id number] [place] [address]- 2280 Nov, [facility] [place] [facility] [address] [id number] [place] [address]- 7651 Nov, [facility] [place] [facility] [address] [id number] [place] [address]- 0249 Nov, [facility] [place] [facility] [address] [id number] [place] [address]- 1514 Nov, [facility] [place] [facility] [address] [id number] [place] [address]- 6659 October, [facility] [place] [facility] [address] [id number] [place] [address]- 5907 October, [facility] [place] [facility] [address] [id number] [place] [address]- 1385 October, [facility] [place] [facility] [address] [id number] [place] [address]- 3845 October, [facility] [place] [facility] [address] [id number] [place] [address]- 0017 October, [facility] [place] [facility] [address] [id number] [place] [address]- 7183 October, [facility] [place] [facility] [address] [id number] [place] [address]- 2358 October, [facility] [place] [facility] [address] [id number] [place] [address]- 7812 October, [facility] [place] [facility] [address] [id number] [place] [address]- 4106 October, [facility] [place] [facility] [address] [id number] [place] [address]- 6973 October, [facility] [place] [facility] [address] [id number] [place] [address]- 8369 October, [facility] [place] [facility] [address] [id number] [place] [address]- 4307 October, [facility] [place] [facility] [address] [id number] [place] [address]- 9031 October, [facility] [place] [facility] [address] [id number] [place] [address]- 1380 October, [facility] [place] [facility] [address] [id number] [place] [address]- 2593 Sep, [facility] [place] [facility] [address] [id number] [place] [address]- 1306 Sep, [facility] [place] [facility] [address] [id number] [place] [address]- 5310 Sep, [facility] [place] [facility] [address] [id number] [place] [address]- 1539 Sep, [facility] [place] [facility] [address] [id number] [place] [address]- 4908 Sep, [facility] [place] [facility] [address] [id number] [place] [address]- 1084 Sep, [facility] [place] [facility] [address] [id number] [place] [address]- 1533 Sep, [facility] [place] [facility] [address] [id number] [place] [address]- 0839 Sep, [facility] [place] [facility] [address] [id number] [place] [address]- 9990 Sep, [facility] [place] [facility] [address] [id number] [place] [address]- 3976 Sep, [facility] [place] [facility] [address] [id number] [place] [address]- 5375 Sep, [facility] [place] [facility] [address] [id number] [place] [address]- 6012 Sep, [facility] [place] [facility] [address] [id number] [place] [address]- 8362 Sep, [facility] [place] [facility] [address] [id number] [place] [address]- 9006 Sep, [facility] [place] [facility] [address] [id number] [place] [address]- 8827 Sep, [facility] [place] [facility] [address] [id number] [place] [address]- 7661 Aug, [facility] [place] [facility] [address] [id number] [place] [address]- 0290 Aug, [facility] [place] [facility] [address] [id number] [place] [address]- 5302 Aug, [facility] [place] [facility] [address] [id number] [place] [address]- 6223 Aug, [facility] [place] [facility] [address] [id number] [place] [address]- 0544 Jul, [facility] [place] [facility] [address] [id number] [place] [address]- 4285 Jul, [facility] [place] [facility] [address] [id number] [place] [address]- 1307 Jul, [facility] [place] [facility] [address] [id number] [place] [address]- 0012 Jul, [facility] [place] [facility] [address] [id number] [place] [address]- 8369 Jun, [facility] [place] [facility] [address] [id number] [place] [address]- 1333 Jun, [facility] [place] [facility] [address] [id number] [place] [address]- 2886 Jun, [facility] [place] [facility] [address] [id number] [place] [address]- 4913 Jun, [facility] [place] [facility] [address] [id number] [place] [address]- 9088 Jun, [facility] [place] [facility] [address] [id number] [place] [address]- 2863 10 Jun, 2013 [facility] [address] [id number] [place] [address] Jun, [facility] [place] [facility] [address] [id number] [place] [address]- 2498 08 Jun, 2013 [facility] [address] [id number] [place] [address]- 8797 20 May, 2013 [facility] [place] [facility] [address] [id number] [place] [address]- 0030 20 May, 2013 [facility] [address] [id number] [place] [address]- 3561 18 May, 2013 [facility] [place] [facility] [address] [id number] [place] [address]- 8232 18 May, 2013 [facility] [address] [id number] [place] [address]- 0595 17 May, 2013 [facility] [address] [facility] [id number] [place] [id number] 17 May, 2013 [facility] [place] [facility] [address] [id number] [place] [address]- 9054 17 May, 2013 [facility] [place] [facility] [address] [id number] [place] [address]- 1343 17 May, 2013 [facility] [place] [facility] [address] [id number] [place] [address]- 6147 16 May, 2013 [facility] [place] [facility] [address] [id number] [place] [address]- 0422 16 May, 2013 [facility] [place] [facility] [address] [id number] [place] [address]- 9502 14 May, 2013 [facility] [place] [facility] [address] [id number] [place] [address]- 1191 14 May, 2013 [facility] [place] [facility] [address] [id number] [place] [address]- 2380 13 May, 2013 [facility] [place] [facility] [address] [id number] [place] [address]- 7360 13 May, 2013 [facility] [address] [id number] [place] [address]- 3826 May, [facility] [place] [facility] [address] [id number] [place] [address]- 1933 May, [facility] [address] [id number] [place] [address]- 0819 May, [facility] [place] [facility] [address] [id number] [place] [address]- 7502 May, [facility] [address] [id number] [place] [address]- 4344 Apr, [facility] [place] [facility] [address] [id number] [place] [address]- 8469 Apr, [facility] [place] [facility] [address] [id number] [place] [address]- 7793 Apr, [facility] [address] [id number] [place] [address]- 3963 Apr, [facility] [place] [facility] [address] [id number] [place] [address]- 0411 Aug, [facility] [address] [id number] [place] [address]- 2494 Aug, [facility] [place] [facility] [address] [id number] [place] [address]- 4379 Aug, [facility] [place] [facility] [address] [id number] [place] [address]- 2318 05 Aug, 2012 [facility] [place] [facility] [address] [id number] [place] [address]- 4207 04 Jul, 2012 [facility] [place] [facility] [address] [id number] [place] [address]- 1563 Jun, [facility] [place] [facility] [address] [id number] [place] [address]- 4382 Jun, [facility] [address] [id number] [place] [address]- 8881 Jun, [facility] [place] [facility] [address] [id number] [place] [address]- 5318 Jun, [facility] [place] [facility] [address] [facility] [id number] [place] May, [facility] [place] [facility] [address] [id number] [place] [address]- 3542 May, [facility] [place] [facility] [address] [id number] [place] [address]- 5611 May, [facility] [place] [facility] [address] [id number] [place] [address]- 1645 May, [facility] [place] [facility] [address] [id number] [place] [address]- 8432 May, [facility] [place] [facility] [address] [id number] [place] [address]- 0374 May, [facility] [place] [facility] [address] [id number] [place] [address]- 1732 May, [facility] [place] [facility] [address] [id number] [place] [address]- 8628 Apr, [facility] [place] [facility] [address] [id number], [place] [address]- 6415 Apr, [facility] [place] [facility] [address] [id number], [place] [address]- 6632 Apr, [facility] [place] [facility] [address] [id number] [place] [address]- 9711 Apr, [facility] [place] [facility] [address] [id number] [place] [address]- 5275 Apr, [facility] [place] [facility] [address] [facility] [id number] [place] [address]- 1672 Apr, [facility] [place] [facility] [address] [id number] [place] [address]- 5489 Apr, [facility] [place] [facility] [address] [id number] [place] [address]- 2796 Mar, 2011 [facility] [place] [facility] [address] [id number] [place] [address]16 Mar, [facility] [place] [facility] [address] [id number] [place] [address]- 5939 Mar, [facility] [place] [facility] [address] [id number] [place] [address]- 5395 Mar, [facility] [place] [facility] [address] [id number] [place] [address] Mar, [facility] [place] [facility] [address] [id number] [place] [address]- 4744 Mar, [facility] [place] [facility] [address] [id number] [place] [address]- 6440 Mar, [facility] [place] [facility] [address] [id number] [place] [address]- 5619 Mar, [facility] [place] [facility] [address] [id number] [place] [address]- 0360 Mar, [facility] [place] [facility] [address] [facility] [id number] [place] [address]- 3341 15 Mar, 2012 [facility] [place] [facility] [address] [id number] [place] [address]- 9544 Mar, [facility] [place] [facility] [address] [id number], [place] [address]- 4032 Mar, [facility] [place] [facility] [address] [id number] [place] [address]- 9421 06 Feb, 2012 [facility] [place] [facility] [address] [id number] [place] [address]- 0606 Jan, [facility] [place] [facility] [address] [id number], [place] [address]- 4203 Jan, [facility] [place] [facility] [address] [id number] [place] [address]- 8510 Jan, [facility] [place] [facility] [address] [id number] [place] [address]- 7997 Jan, [facility] [place] [facility] [address] [id number] [place] [address]- 9224 Jan, [facility] [place] [facility] [address] [id number] [place] [address]- 2511 Dec, [facility] [address] [id number] [place] [address]- 9642 Dec, [facility] [place] [facility] [address] [id number] [place] [address]- 0847 Nov, [facility] [address] [id number] [place] [address]- 1238 Nov, [facility] [address] [id number] [place] [address]- 0872 Nov, [facility] [place] [facility] [address] [id number] [place] [address]- 2377 October, [facility] [address] [id number] [place] [address]- 5849 October, [facility] [place] [facility] [address] [id number] [place] [address]- 1753 October, [facility] [place] [facility] [address] [id number] [place] [address]- 8408 October, [facility] [place] [facility] [address] [id number] [place] [address]- 9496 October, [facility] [place] [facility] [address] [id number] [place] [address]- 1355 October, [facility] [place] [facility] [address] [id number] [place] [address]- 0366 October, [facility] [place] [facility] [address] [id number] [place] [address]- 7367 26 Sep, 2011 [facility] [place] [facility] [address] [id number] [place] [address]- 9017 26 Sep, 2011 [facility] [place] [facility] [address] [id number] [place] [address]- 4168 26 Sep, 2011 [facility] [place] [facility] [address] [id number] [place] [address]- 0826 25 Sep, 2011 [facility] [place] [facility] [address] [id number] [place] [address]- 5581 24 Sep, 2011 [facility] [place] [facility] [address] [id number] [place] [address]- 9995 19 Sep, 2011 [facility] [place] [facility] [address] [id number] [place] [address]- 2165 17 Sep, 2011 [facility] [place] [facility] [address] [id number] [place] [address]- 7424 16 Sep, 2011 [facility] [place] [facility] [address] [id number] [place] [address]- 4324 16 Sep, 2011 [facility] [place] [facility] [address] [id number] [place] [address]- 4733 14 Sep, 2011 [facility] [place] [facility] [address] [id number] [place] [address]- 7921 13 Sep, 2011 [facility] [place] [facility] [address] [id number] [place] [address]- 6975 10 Sep, 2011 [facility] [place] [facility] [address] [id number] [place] [address]- 5797 09 Sep, 2011 [facility] [place] [facility] [address] [id number] [place] [address]- 9780 27 Aug, 2011 [facility] [place] [facility] [address] [id number] [place] [address]- 4314 12 Aug, 2011 [facility] [place] [facility] [address] [id number] [place] [address]- 4949 08 Aug, 2011 [facility] [place] [facility] [address] [id number] [place] [address]- 5704 Aug, [facility] [place] [facility] [address] [id number] [place] [address]- 3666 28 Jul, 2011 [facility] [place] [facility] [address] [id number] [place] [address]- 8756 22 Jul, 2011 [facility] [place] [facility] [address] [id number] [place] [address]- 3156 16 Jul, 2011 [facility] [place] [facility] [address] [id number] [place] [address] 2546 15 Jul, 2011 [facility] [place] [facility] [address] [id number] [place] [address]- 7926 14 Jul, 2011 [facility] [place] [facility] [address] [id number] [place] [address]- 1371 10 Jul, 2011 [facility] [place] [facility] [address] [id number] [place] [address]- 4027 Jun, [facility] [place] [facility] [address] [id number] [place] [address]- 9871 Jun, [facility] [place] [facility] [address] [id number] [place] [address]- 0959 Jun, [facility] [place] [facility] [address] [id number] [place] [address]- 5087 Jun, [facility] [place] [facility] [address] [id number] [place] [address]- 6342 Jun, [facility] [place] [facility] [address] [id number] [place] [address]- 6940 May, [facility] [place] [facility] [address] [id number] [place] [address] 2546 May, [facility] [place] [facility] [address] [id number] [place] [address]- 4223 May, [facility] [place] [facility] [address] [id number] [place] [address]- 0309 14 May, 2011 [facility] [place] [facility] [address] [id number] [place] [address]- 4402 12 May, 2011 [facility] [place] [facility] [address] [id number] [place] [address]- 5625 May, [facility] [place] [facility] [address] [id number] [place] [address]- 8156 May, [facility] [place] [facility] [address] [id number] [place] [address]- 4135 Apr, [facility] [place] [facility] [address] [id number] [place] [address]- 4709 Apr, [facility] [place] [facility] [address] [id number] [place] [address]- 1337 Apr, [facility] [place] [facility] [address] [id number] [place] [address]- 7719 Apr, [facility] [place] [facility] [address] [id number] [place] [address]- 7396 Apr, [facility] [place] [facility] [address] [id number] [place] [address]- 5756 Apr, [facility] [place] [facility] [address] [id number] [place] [address]- 3641 Mar, [facility] [place] [facility] [address] [id number], [place] [address] Mar, [facility] [place] [facility] [address] [id number], [place] [address] Mar, [facility] [place] [facility] [address] [id number] [place] [address] Mar, [facility] [place] [facility] [address] [id number], [place] [address] Jan, [facility] [place] [facility] [address] [id number] [place] [address] Dec, [facility] [place] [facility] [address] [id number] [place] [address]26 13 Dec, 2010 [facility] [address] [id number] [place] [address] 11 Oct, 2010 [facility] [place] [facility] [address] [id number] [place] [address] 2546 20 Sep, 2010 [facility] [address] [id number] [place] [address]106 14 Sep, 2010 [facility] [address] [id number] [place] [address] 2546 17 Jul, 2010 [facility] [address] [id number] [place] [address], [place] [address]- 8436 16 Jul, 2010 [facility] [address] [id number] [place] [address] 2727 31 May, 2010 [facility] [address] [id number] [place] [address] 2548 May, [facility] [address] [id number] [place] [address] 08 May, 2010 [facility] [address] [id number] [place] [address] 120[address] May, [facility] [address] [id number] [place] [address] Apr, [facility] [place] [facility] [address] [id number] [place] [address] 254 Apr, [facility] [address] [id number] [place] [address] 2542 Apr, [facility] [place] [facility] [address] [id number] [place] [address] 98[address] Apr, [facility] [place] [facility] [address] [id number] [place] [address] 254 Apr, [facility] [address] [id number] [place] [address] 3946 Mar, [facility] [place] [facility] [address] [id number] [place] [address]- [address] 14 Mar, 2010 [facility] [place] [facility] [address] [id number] [place] [address]- [address]100 13 Mar, 2010 [facility] [place] [facility] [address] [id number] [place] [address]- [address] 12 Mar, 2010 [facility] [place] [facility] [address] [id number] [place] [address]- 7222 20 Jan, 2010 [facility] [place] [facility] [address] [id number] [place] [address] 9183 15 Dec, 2009 [facility] [place] [facility] [address] [id number], [place] [address] 10 Sep, 2009 [facility] [place] [facility] [address] [facility] [id number] [place] [address] 08 May, 2009 [facility] [place] [facility] [address] [id number], [place] [address] 06 May, 2009 [facility] [place] [facility] [address] [id number], [place] [address] May, [facility] [place] [facility] [address] [facility] [id number], [place] [address] 17 Apr, 2009 [facility] [place] [facility] [address] [id number], [place] [address] 17 Apr, 2009 [facility] [place] [facility] [address] [id number], [place] [address]54 10 Apr, 2009 [facility] [place] [facility] [address] [id number], [place] [address] 10 Apr, 2009 [facility] [place] [facility] [address] [id number], [place] [address]- [address] 09 Apr, 2009 [facility] [place] [facility] [address] [facility] [id number], [place] [address] 15 Mar, 2009 [facility] [place] [facility] [address] [id number], [place] [address] Mar, [facility] [address] [facility] [id number] [place] [address] Jul, IMMUNIZATIONS No Known Immunizations SOCIAL HISTORY [...] [facility] 12[facility]15 Hospitalization History [facility]- Abd pain 03/07/2017 Hospitalization History [facility]- Abd pain 03/14/2017 Hospitalization History [facility]- No bowel movement, rash 04/13/2017 Hospitalization History [facility]- Abd pain r/t kidney surgery on 04/17/2017 Hospitalization History [facility]- Abd pain r/t kidney surgery on 04/18/2017 Hospitalization History [facility]- Lower abd pain 04/30/2017 Hospitalization History [facility]- Cannot urinate 05/30/2017 Hospitalization History [facility]- Pancreatitis Sx 06/29/2017 Hospitalization History [facility]- Stomach pain 07/22/2017 Hospitalization History [facility]- Left side pain 08/12/2017 Hospitalization History [facility]- Incision site infection 08/30/2017 Hospitalization History [facility]- Post Op Seroma/Hematoma Left Abdomen. Discharged 09/04/17- Dr Daniel 09/02/2017 Hospitalization History [facility]- Right shoulder and back pain 2017 Hospitalization History [facility]- Shoulder/Back pain 11/11/2017 Hospitalization History [facility]- Right shoulder blade pain 12/04/2017 Hospitalization History [facility]- C-Diff 12/13/2017 Hospitalization History C diff et MRSA 12/27/2017
--- OUTSIDE RECORDS SUMMARY | 2018-02-24 14:22 | XMS REPORT ---
Author Author SAI CARMEN [facility] Address [address] [place] [address] Care Team Providers Care Security Services Manager Name Role Phone CARMEN GIBBS Unavailable PROBLEMS Type Condition ICD9-CM Code [id number] Code Onset Dates Condition Status SNOMED Code Problem Polydipsia R63.1 Active 49572550 Problem Trichotillomania F63.3 Active 58442593 Problem Atelectasis J98.11 Active 38662041 Problem Intestinal malabsorption, unspecified K90.9 Active 29629322 Problem Chronic fatigue R53.82 Active 32162717 Problem Generalized social phobia F40.11 Active 16135935 Problem Restless leg syndrome G25.81 Active 55892627 Problem Moderate episode of recurrent major depressive disorder F33.1 Active 088367641 Problem Chronic post-traumatic stress disorder (PTSD) F43.12 Active 089599794 Problem History of renal cell carcinoma Z85.528 Active 888756348 Problem Chronic tension-type headache, intractable G44.221 Active 204339941 Problem Nodule of left lung R91.1 Active 307239215 Problem Hirsuties L68.0 Active 450320505 Problem FH: polycystic ovary Z84.2 Active 893246475 Problem Morbid (severe) obesity due to excess calories E66.01 Active 423097061 Problem Chronic pancreatitis K86.1 Active 285575887 Problem Hyperlipidemia, mixed E78.2 Active 550283496 Problem Asthma J45.909 Active 069405634 ALLERGIES No Information ENCOUNTERS Encounter Location Date Diagnosis [facility] [address] [id number] [address] Mar, [facility] [id number] [address] Feb, [facility] [id number] [address] Jan, Acute pain of right knee M25.561 ; Right upper quadrant abdominal pain R10.11 and BMI 45.0-49.9, adult Z68.42 [facility] [id number] [place] [address] 59080- 2300 Jan, [facility] [id number] [place] [address] 68250- 5324 Jan, [facility] [id number] [place] [address] 41364- 7207 Dec, [facility] [id number] [place] [address] 76757- 2675 Dec, Intestinal malabsorption, unspecified K90.9 and Diarrhea, unspecified R19.7 [place] [id number] [place] [address] 83948- 9924 Dec, [facility] [id number] [place] [address] 79868- 4903 Dec, Strep throat J02.0 ; Intestinal malabsorption, unspecified K90.9 ; Diarrhea, unspecified R19.7 ; Postoperative seroma involving digestive system after non-digestive system procedure K91.873 ; Hyperlipidemia, mixed E78.2 and BMI 45.0-49.9, adult Z68.42 [facility] [address] [place] [address] 67683- 9539 Dec, [facility] [id number] [place] [address] 22646- 8567 Dec, Nausea R11.0 [facility] [id number] [place] [address] 72108- 2406 Dec, [facility] [id number] [place] [address] 92927 -8078 Dec, Sore throat J02.9 ; Strep throat J02.0 and BMI 45.0-49.9, adult Z68.42 [facility] [id number] [place] [address] 75273- 3342 Dec, [facility] [address] [place] [address] 3548 Dec, [facility] [address] [address] 3949 Dec, [facility] [address] [address]- 5382 Dec, [facility] [address] [address]- 6408 Dec, [facility] [address] [place] [address] 8894 Dec, [facility] [address] [address]- 9057 Dec, [facility] [address] [address]- 7954 Dec, [facility] [address] [address]- 4930 Dec, Clostridium difficile colitis A04.72 ; Intractable vomiting with nausea, unspecified vomiting type R11.2 and BMI 45.0-49.9, adult Z68.42 [facility] [address] [address] 4056 Dec, [facility] [address] [address]- 4429 Nov, [facility] [address] [address]- 6639 Nov, [facility] [address] [address]- 2022 Nov, [facility] [address] [address]- 8766 Nov, [facility] [address] [address] Nov, [place] [address] [address]- 8366 Nov, Hyperlipidemia, mixed E78.2 [facility] [id number] [place] [address] 94863 -6208 Nov, Acute suppurative otitis media of right ear without spontaneous rupture of tympanic membrane, recurrence not specified H66.001 and BMI 45.0-49.9, adult Z68.42 [place] [id number] [place] [address] 69609- 1696 Nov, Hyperlipidemia, mixed E78.2 [place] [id number] [place] [address] 09302- 4801 Nov, [place] [id number] [place] [address] 30476- 7949 Nov, [address] 6[address]62- 1181 Nov, Nodule of left lung R91.1 [place] [id number] [place] [address] 48396- 0504 Nov, Medicare annual wellness visit, initial Z00.00 [...] and Encounter for immunization Z23 [place] [id number] [place] [address] 69588- 2919 October, [place] [id number] [place] [address] 17675- 2789 October, Nodule of left lung R91.1 [id number] [place] [address] 24514- 5895 October, Nodule of left lung R91.1 [place] [id number] [place] [address] 68226- 4475 October, Recurrent major depressive disorder, in partial remission F33.41 ; Restless leg syndrome G25.81 ; Generalized social phobia F40.11 ; Chronic post-traumatic stress disorder (PTSD) F43.12 ; BMI 45.0-49.9, adult Z68.42 and Trichotillomania F63.3 [place] [id number] [place] [address] 94488- 1304 October, [place] [id number] [place] [address] 07051- 7545 Sep, Chronic fatigue R53.82 and BMI 45.0-49.9, adult Z68.42 [place] [id number] [place] [address] 74065- 7141 Aug, [place] [id number] [place] [address] 40256- 2188 Jul, Restless leg syndrome G25.81 and B12 deficiency E53.8 [place] [id number] [place] [address] 16447- 7167 Jul, [place] [id number] [place] [address] 39359- 4126 Jul, [place] [id number] [place] [address] 31891- 0388 Jun, [place] [id number] [place] [address] 74544- 9242 Jun, Fatigue, unspecified type R53.83 ; History of renal cell carcinoma Z85.528 ; Chronic pancreatitis K86.1 ; Restless leg syndrome G25.81 ; Dark urine R82.99 and BMI 45.0-49.9, adult Z68.42 [place] [id number] [place] [address] 62321- 5776 Jun, [facility] [id number] [address]- 6375 Jun, [facility] [address] [address]- 2301 Jun, [facility] [id number] [address]- 8234 Jun, [facility] [address] [address] May, Chronic post-traumatic stress disorder (PTSD) F43.12 ; Moderate episode of recurrent major depressive disorder F33.1 ; Trichotillomania F63.3 and Generalized social phobia F40.11 [facility] [address] [address]- 3894 May, [facility] [address] [address]- 4345 May, Chronic post-traumatic stress disorder (PTSD) F43.12 ; Moderate episode of recurrent major depressive disorder F33.1 ; Trichotillomania F63.3 and Generalized social phobia F40.11 [facility] [id number] [address]- 9998 May, Hyperlipidemia, mixed E78.2 ; Morbid (severe) obesity due to excess calories E66.01 ; Chronic post-traumatic stress disorder (PTSD) F43.12 ; Moderate episode of recurrent major depressive disorder F33.1 ; Trichotillomania F63.3 and Generalized social phobia F40.11 [facility] [id number] [address]- 1831 Apr, [facility] [address] [address]- 0417 Apr, Hyperlipidemia, mixed E78.2 ; Morbid (severe) obesity due to excess calories E66.01 ; Chronic post-traumatic stress disorder (PTSD) F43.12 ; Moderate episode of recurrent major depressive disorder F33.1 ; Trichotillomania F63.3 and Generalized social phobia F40.11 [facility] [address] [place] [address] 17427- 7699 Apr, Trichotillomania F63.3 ; Generalized social phobia F40.11 ; Chronic post-traumatic stress disorder (PTSD) F43.12 and Moderate episode of recurrent major depressive disorder F33.1 [place] [id number] [place] [address] 94806- 8165 Apr, [facility] [id number] [place] [address] 03561- 7051 Apr, [place] [id number] [place] [address] 47917- 9661 Mar, Moderate episode of recurrent major depressive disorder F33.1 ; Trichotillomania F63.3 ; Chronic post-traumatic stress disorder (PTSD) F43.12 ; Generalized social phobia F40.11 and Restless leg syndrome G25.81 [place] [id number] [place] [address] 94741- 0561 Mar, [place] [address] 40842- 6130 Mar, [place] [id number] [place] [address] 53328- 4461 Feb, Left kidney mass N28.89 [place] [id number] [place] [address] 00929- 8059 Jan, [place] [id number] [place] [address] 80199- 9782 Dec, Polydipsia R63.1 ; Chronic pancreatitis K86.1 and Fatigue, unspecified type R53.83 [facility] [id number] [place] [address] 31751- 1163 Nov, [place] [id number] [place] [address] 76691- 2364 Nov, [place] [id number] [place] [address] 69101- 2747 Nov, Headache around the eyes R51 [facility] [id number] [place] [address] 28803- 7958 Nov, [facility] [id number] [place] [address] 27858- 3474 October, STD exposure Z20.2 [facility] [id number] [place] [address] 34551- 8614 October, STD exposure Z20.2 [facility] [id number] [place] [address] 823079- 2392 October, Chronic post-traumatic stress disorder (PTSD) F43.12 ; Generalized social phobia F40.11 ; Trichotillomania F63.3 and Restless leg syndrome G25.81 [place] [id number] [place] [address] 52260- 5538 October, [facility] [id number] [place] [address] 96590- 6245 Sep, [facility] [id number] [place] [address] 59411- 7185 Aug, [facility] [id number] [place] [address] 02085- 4135 Aug, [place] [id number] [place] [address] 14395- 8383 Aug, Neck mass R22.1 [place] [id number] [place] [address] 75347- 9406 Aug, Atelectasis J98.11 [place] [id number] [place] [address] 00273- 0538 28 Jul, 2016 Hyperlipidemia, mixed E78.2 ; Atypical pneumonia J18.9 and Neck mass R22.1 [place] [id number] [place] [address] 92316- 4977 15 Jul, 2016 Hemop[address]sis R04.[address] [place] [address] 75965- 6647 08 Jul, 2016 Acute non-recurrent pansinusitis J01.40 ; Hemoptysis R04.2 ; Polydipsia R63.1 and Malaise R53.81 [facility] [place] [id number] [place] [address] 22733 -4461 May, Other viral agents as the cause of diseases classified elsewhere B97.89 and Acute upper respiratory infection, unspecified J06.9 [facility] [place] [id number] [place] [address] 13551 -2123 Mar, Nausea R11.0 [facility] [place] [id number] [place] [address] 19021 -7520 Dec, Hives L50.9 [place] [id number] [place] [address] 30002- 2446 Dec, [facility] [place] [address] [place] [address] 28493 -0811 Dec, Cutaneous abscess of limb, unspecified L02.419 ; Cellulitis of unspecified part of limb L03.119 ; Encounter for incision and drainage procedure Z01.89 and Encounter for recheck of abscess following incision and drainage Z09 [facility] [address] [place] [address] 32185 -2982 Dec, Abscess of leg, right L02.415 [place] [id number] [place] [address] 07657- 0845 08 Dec, 2015 Cellulitis of unspecified part of limb L03.119 and Cutaneous abscess of limb, unspecified L02.419 [place] [address] [place] [address] 74254- 9226 Dec, [place] [address] [place] [address] 18717- 2877 Dec, [facility] [address] [place] [address] 98382 -2871 Aug, [facility] [id number] [place] [address] 21132- 4038 Aug, [facility] [id number] [place] [address] 48755 -7793 04 Jul, 2015 Pain in unspecified wrist M25.539 and Back pain, thoracic M54.6 [facility] [id number] [place] [address] 75813 -9692 13 Jun, 2015 Strain of right wrist, initial encounter S66.911A [place] [address] 47931- 6048 Jun, Chronic pancreatitis, unspecified pancreatitis type K86.1 ; Hirsuties L68.0 ; Morbid (severe) obesity due to excess calories E66.01 ; Chronic pancreatitis K86.1 and Asthma J45.909 [place] [id number] [place] [address] 36628- 7151 May, [place] [id number] [place] [address] 68926- 5048 May, Hyperlipidemia, mixed E78.2 and Muscle spasm of back M62.830 [place] [address] [place] [address] 73720- 1793 Apr, [place] [id number] [place] [address] 10189- 0201 Apr, Torticollis M43.6 [place] [id number] [place] [address] 83360- 7259 Apr, Right-sided thoracic back pain M54.6 [place] [id number] [place] [address] 68571- 3370 Mar, Rash R21 [place] [id number] [place] [address] 80696- 6917 Mar, [place] [address] [address]- 7325 Jan, [facility] [id number] [place] [address] 578747- 2998 Dec, [facility] [address]- 9673 Dec, Urinary frequency 788.41 and Nocturia more than twice per night 788.43 [facility] [id number] [place] [address] 91206- 8569 Nov, [facility] [id number] [place] [address] 376470- 9476 Nov, [facility] [id number] [place] [address] 88707- 3634 Nov, Abdominal pain 789.00 [facility] [id number] [place] [address] 33147- 2795 October, TDAP DX V06.1 [facility] [id number] [place] [address] 66344- 6109 October, [facility] [id number] [place] [address] 666400- 2601 October, Disturbance of skin sensation 782.0 ; Wrist pain, right 719.43 ; Hyperlipidemia 272.4 and Skin lesion of face 709.9 [facility] [address] [address]- 1454 Sep, [facility] [address] [address]- 5180 Sep, [facility] [id number] [place] [address] 072256- 2648 Aug, [facility] [address] [address]- 7743 Aug, [facility] [id number] [place] [address] [id number]- 5695 23 Aug, 2014 [facility] [place] [facility] [address] [id number] [place] [address]- 9392 23 Aug, 2014 [facility] [place] [facility] [address] [id number] [place] [address]- 0621 16 Aug, 2014 [facility] [place] [facility] [address] [id number] [place] [address]- 4928 16 Aug, 2014 [facility] [place] [facility] [address] [id number] [place] [address]- 8389 14 Aug, 2014 [facility] [place] [facility] [address] [id number] [place] [address]- 0404 14 Aug, 2014 [facility] [place] [facility] [address] [id number] [place] [address]- 1806 Aug, [facility] [place] [facility] [address] [id number] [place] [address]- 0913 Aug, [facility] [place] [facility] [address] [id number] [place] [address]- 0397 04 Aug, 2014 [facility] [place] [facility] [address] [id number] [place] [address]- 2286 Aug, [facility] [place] [facility] [address] [id number] [place] [address]- 6579 Aug, [facility] [place] [facility] [address] [id number] [place] [address]- 1961 Aug, [facility] [place] [facility] [address] [id number] [address]- 5479 Jul, 2014 [facility] [place] [facility] [address] [id number] [place] [address]- 5356 Jul, 2014 [facility] [place] [facility] [address] [id number] [place] [address]- 1810 Jul, 2014 [facility] [place] [facility] [address] [id number] [place] [address]- 4711 Jul, [facility] [place] [facility] [address] [id number] [place] [address]- 9982 Jul, [facility] [address] [id number] [place] [address]- 3904 Jul, [facility] [address] [id number] [place] [address]- 3669 Jun, [facility] [address] [id number] [place] [address]- 2080 Jun, [facility] [address] [id number] [place] [address]- 9885 Jun, [facility] [address] [id number] [place] [address]- 9124 Jun, [facility] [address] [id number] [place] [address] Jun, [facility] [address] [id number] [place] [address] Jun, [facility] [address] [id number] [place] [address] Jun, [facility] [address] [id number] [place] [address] Jun, [facility] [address] [id number] [place] [address] May, [facility] [place] [facility] [address] [id number] [place] [address] May, [facility] [address] [id number] [place] [address] 18 May, 2014 [facility] [place] [facility] [address] [id number] [place] [address] 18 May, 2014 [facility] [place] [facility] [address] [id number] [place] [address] 15 May, 2014 [facility] [place] [facility] [address] [id number] [place] [id number] May, [facility] [place] [facility] [address] [id number] [place] [address] May, [facility] [place] [facility] [address] [id number] [place] [address] May, [facility] [place] [facility] [address] [id number] [place] [address] May, [facility] [place] [facility] [address] [id number] [place] [address] May, [facility] [place] [facility] [address] [id number] [place] [address] May, [facility] [place] [facility] [address] [id number] [place] [address] May, [facility] [place] [facility] [address] [id number] [place] [address] Apr, [facility] [place] [facility] [address] [id number] [place] [address] Apr, [facility] [place] [facility] [address] [id number] [place] [address] Apr, [facility] [place] [facility] [address] [id number] [place] [address] Apr, [facility] [place] [facility] [address] [id number] [place] [address] Apr, [facility] [place] [facility] [address] [id number] [place] [address] Apr, [facility] [place] [facility] [address] [id number] [place] [address] Apr, [facility] [place] [facility] [address] [id number] [place] [address] Apr, [facility] [place] [facility] [address] [id number] [place] [address] Apr, [facility] [place] [facility] [address] [id number] [place] [address] Apr, [facility] [place] [facility] [address] [id number] [place] [address] Apr, [facility] [place] [facility] [address] [id number] [place] [address] Apr, [facility] [place] [facility] [address] [id number] [place] [address] Mar, [facility] [place] [facility] [address] [id number] [place] [address] Mar, [facility] [place] [facility] [address] [id number] [place] [address] 1981 Mar, [facility] [place] [facility] [address] [id number] [place] [address] Mar, [facility] [place] [facility] [address] [id number] [place] [address] 10 Feb, 2014 [facility] [place] [facility] [address] [id number] [place] [address] 10 Feb, 2013 [facility] [place] [facility] [address] [id number] [place] [address] 05 Feb, 2013 [facility] [place] [facility] [address] [id number] [place] [address] 05 Feb, 2013 [facility] [place] [facility] [address] [id number] [place] [address] Feb, 2013 [facility] [place] [facility] [address] [id number] [place] [address] Feb, 2013 [facility] [place] [facility] [address] [id number] [place] [address] Jan, [facility] [place] [facility] [address] [id number] [place] [address] Jan, [facility] [place] [facility] [address] [id number] [place] [address] Jan, [facility] [place] [facility] [address] [id number] [place] [address] Jan, [facility] [place] [facility] [address] [id number] [place] [address] Jan, [facility] [place] [facility] [address] [id number] [place] [address] Jan, [facility] [facility] [address] [id number] [place] [address] Jan, [facility] [place] [facility] [address] [id number] [place] [address] Jan, [facility] [place] [facility] [address] [id number] [place] [address] 16[address] Jan, [facility] [place] [facility] [address] [id number] [place] [address] Jan, [facility] [place] [facility] [address] [id number] [place] [address] 4757 Jan, [facility] [place] [facility] [address] [id number] [place] [address]645 Jan, [facility] [place] [facility] [address] [id number] [place] [address] 3195 Jan, [facility] [place] [facility] [address] [id number] [place] [address] 7240 Jan, [facility] [place] [facility] [address] [id number] [place] [address] 3494 Dec, [facility] [place] [facility] [address] [id number] [place] [address] 8057 Dec, [facility] [place] [facility] [address] [id number] [place] [address] 68[address] Dec, [facility] [place] [facility] [address] [id number] [place] [address] Dec, [facility] [place] [facility] [address] [id number] [place] [address]041 Nov, [facility] [place] [facility] [address] [id number] [place] [address]- 6330 Nov, [facility] [place] [facility] [address] [id number] [place] [address]- 0251 Nov, [facility] [place] [facility] [address] [id number] [place] [address]- 2977 Nov, [facility] [place] [facility] [address] [id number] [place] [address]- 2781 Nov, [facility] [place] [facility] [address] [id number] [place] [address] 1244 October, [facility] [place] [facility] [address] [id number] [place] [address]1 October, [facility] [place] [facility] [address] [id number] [place] [address]- 9420 October, [facility] [place] [facility] [address] [id number] [place] [address]- 9957 October, [facility] [address] [id number] [place] [address]- 3242 October, [facility] [place] [address] [id number] [place] [address]- 2666 October, [facility] [place] [facility] [address] [id number] [place] [address]- 4945 October, [facility] [place] [facility] [address] [id number] [place] [address]- 6992 October, [facility] [place] [facility] [address] [id number] [place] [address]- 0749 October, [facility] [facility] [address] [id number] [place] [address]- 3315 October, [facility] [place] [facility] [address] [id number] [place] [address]- 0177 October, [facility] [place] [facility] [address] [id number] [place] [address]- 1161 October, [facility] [place] [facility] [address] [id number] [place] [address]- 0135 October, [facility] [place] [address] [id number] [place] [address]- 5015 October, [facility] [place] [facility] [address] [id number] [place] [address]- 8928 Sep, [facility] [address] [id number] [place] [address]- 5208 Sep, [facility] [address] [id number] [place] [address]- 3862 Sep, [facility] [address] [id number] [place] [address]- 4589 Sep, [facility] [address] [id number] [place] [address]- 1201 Sep, [facility] [address] [id number] [place] [address]- 5711 Sep, [facility] [address] [id number] [place] [address]- 2432 Sep, [facility] [address] [id number] [place] [address]- 6730 Sep, [facility] [address] [id number] [place] [address]- 0680 Sep, [facility] [address] [id number] [place] [address]- 2298 Sep, [facility] [address] [id number] [place] [address]- 7375 Sep, [facility] [address] [id number] [place] [address]- 4732 Sep, [facility] [address] [id number] [place] [address]- 3014 Sep, [facility] [address] [id number] [place] [address]- 9371 Sep, [facility] [address] [id number] [place] [address]- 1748 Sep, [facility] [address] [id number] [place] [address]- 0648 Aug, [facility] [address] [id number] [place] [address]- 9997 Aug, [facility] [address] [id number] [place] [address]- 9346 Aug, [facility] [address] [id number] [place] [address]- 8277 Aug, [facility] [address] [id number] [place] [address]- 3368 Jul, [facility] [address] [id number] [place] [address]- 8658 Jul, [facility] [address] [id number] [place] [address]- 3643 Jul, [facility] [address] [id number] [place] [address]- 5362 Jul, [facility] [address] [id number] [place] [address]- 1766 Jun, [facility] [address] [id number] [place] [address]- 1504 Jun, [facility] [address] [id number] [place] [address]- 0845 Jun, [facility] [address] [id number] [place] [address]- 6728 Jun, [facility] [address] [id number] [place] [address]- 2315 Jun, [facility] [address] [id number] [place] [address]- 8506 10 Jun, 2013 [facility] [address] [id number] [place] [address] Jun, [facility] [address] [id number] [place] [address]- 7037 08 Jun, 2013 [facility] [address] [id number] [place] [address]- 1977 20 May, 2013 [facility] [address] [id number] [place] [address]- 2208 20 May, 2013 [facility] [address] [id number] [place] [address]- 0914 18 May, 2013 [facility] [address] [id number] [place] [address]- 6195 18 May, 2013 [facility] [address] [id number] [place] [address]- 8505 17 May, 2013 [facility] [address] [facility] [id number] [place] [id number] 17 May, 2013 [facility] [address] [id number] [place] [address]- 4320 17 May, 2013 [facility] [address] [id number] [place] [address]- 7537 17 May, 2013 [facility] [address] [id number] [place] [address]- 4631 16 May, 2013 [facility] [address] [id number] [place] [address]- 2980 16 May, 2013 [facility] [address] [id number] [place] [address]- 1176 14 May, 2013 [facility] [address] [id number] [place] [address]- 9532 14 May, 2013 [facility] [address] [id number] [place] [address]- 6637 13 May, 2013 [facility] [address] [id number] [place] [address]- 2224 13 May, 2013 [facility] [address] [id number] [place] [address]- 0235 May, [facility] [address] [id number] [place] [address]- 4137 May, [facility] [address] [id number] [place] [address]- 9759 May, [facility] [address] [id number] [place] [address]- 6211 May, [facility] [address] [id number] [place] [address]- 7537 Apr, [facility] [address] [id number] [place] [address]- 9219 Apr, [facility] [address] [id number] [place] [address]- 7153 Apr, [facility] [address] [id number] [place] [address]- 3407 Apr, [facility] [address] [id number] [place] [address]- 1469 Aug, [facility] [address] [id number] [place] [address]- 0706 Aug, [facility] [address] [id number] [place] [address]- 3760 Aug, [facility] [address] [id number] [place] [address]- 1311 05 Aug, 2012 [facility] [address] [id number] [place] [address]- 3216 04 Jul, 2012 [facility] [address] [id number] [place] [address]- 8482 Jun, [facility] [address] [id number] [place] [address]- 8616 Jun, [facility] [address] [id number] [place] [address]- 7731 Jun, [facility] [address] [id number] [place] [address]- 3774 Jun, [facility] [address] [facility] [id number] [place] [address]061 May, [facility] [address] [id number] [place] [address]- 3047 May, [facility] [address] [id number] [place] [address]- 5306 May, [facility] [address] [id number] [place] [address]- 9243 May, [facility] [address] [id number] [place] [address]- 0154 May, [facility] [address] [id number] [place] [address]- 3979 May, [facility] [address] [id number] [place] [address]- 3287 May, [facility] [address] [id number] [place] [address]- 7485 Apr, [facility] [address] [id number] [address]- 6246 Apr, [facility] [address] [id number] [address]- 1013 Apr, [facility] [address] [id number] [place] [address]- 1669 Apr, [facility] [address] [id number] [place] [address]- 7313 Apr, [facility] [address] [facility] [id number] [place] [address]- 8695 Apr, [facility] [address] [id number] [place] [address]- 1414 Apr, [facility] [address] [id number] [place] [address]- 4706 Mar, 2011 [facility] [address] [id number] [place] 49[address] Mar, [facility] [address] [id number] [place] [address]- 3923 Mar, [facility] [address] [id number] [place] [address]- 1008 Mar, [facility] [address] [id number] [place] Mar, [facility] [address] [id number] [place] [address]- 5927 Mar, [facility] [address] [id number] [place] [address]- 3542 Mar, [facility] [address] [id number] [place] [address]- 9950 Mar, [facility] [address] [id number] [place] [address]- 2980 Mar, [facility] [address] [facility] [id number] [place] [address]- 8686 15 Mar, 2012 [facility] [address] [id number] [place] [address]- 6570 Mar, [facility] [address] [id number] [address]- 8219 Mar, [facility] [address] [id number] [place] [address]- 5019 06 Feb, 2012 [facility] [address] [id number] [place] [address]- 4208 Jan, [facility] [facility] [address] [id number] [address]- 9006 Jan, [facility] [address] [id number] [place] [address]- 0729 Jan, [facility] [facility] [address] [id number] [place] [address]- 9581 Jan, [facility] [address] [id number] [place] [address]- 9842 Jan, [facility] [address] [id number] [place] [address]- 9555 Dec, [facility] [address] [id number] [place] [address]- 4147 Dec, [facility] [address] [id number] [place] [address]- 3126 Nov, [facility] [address] [id number] [place] [address]- 3217 Nov, [facility] [address] [id number] [place] [address]- 1093 Nov, [facility] [address] [id number] [place] [address]- 9254 October, [facility] [address] [id number] [place] [address]- 0901 October, [facility] [address] [id number] [place] [address]- 0756 October, [facility] [address] [id number] [place] [address]- 8218 October, [facility] [address] [id number] [place] [address]- 1914 October, [facility] [place] [facility] [address] [id number] [place] [address]- 1853 October, [facility] [address] [id number] [place] [address]- 0482 October, [facility] [facility] [address] [id number] [place] [address]- 4519 26 Sep, 2011 [facility] [place] [facility] [address] [id number] [place] [address]- 5056 26 Sep, 2011 [facility] [place] [facility] [address] [id number] [place] [address]- 4129 26 Sep, 2011 [facility] [place] [facility] [address] [id number] [place] [address]- 7876 25 Sep, 2011 [facility] [place] [facility] [address] [id number] [place] [address]- 5539 24 Sep, 2011 [facility] [place] [facility] [address] [id number] [place] [address]- 6219 19 Sep, 2011 [facility] [place] [facility] [address] [id number] [place] [address]- 8137 17 Sep, 2011 [facility] [place] [facility] [address] [id number] [place] [address]- 4867 16 Sep, 2011 [facility] [place] [facility] [address] [id number] [place] [address]- 2943 16 Sep, 2011 [facility] [place] [facility] [address] [id number] [place] [address]- 1675 14 Sep, 2011 [facility] [place] [facility] [address] [id number] [place] [address]- 2617 13 Sep, 2011 [facility] [place] [facility] [address] [id number] [place] [address]- 5795 10 Sep, 2011 [facility] [place] [facility] [address] [id number] [place] [address]- 4091 09 Sep, 2011 [facility] [place] [facility] [address] [id number] [place] [address]- 8108 27 Aug, 2011 [facility] [place] [facility] [address] [id number] [place] [address]- 0727 12 Aug, 2011 [facility] [place] [facility] [address] [id number] [place] [address]- 0456 08 Aug, 2011 [facility] [place] [facility] [address] [id number] [place] [address]- 3878 Aug, [facility] [place] [facility] [address] [id number] [place] [address]- 3836 28 Jul, 2011 [facility] [place] [facility] [address] [id number] [place] [address]- 5776 22 Jul, 2011 [facility] [place] [facility] [address] [id number] [place] [address]- 3286 16 Jul, 2011 [facility] [place] [facility] [address] [id number] [place] [address] 2546 15 Jul, 2011 [facility] [place] [facility] [address] [id number] [place] [address]- 6616 14 Jul, 2011 [facility] [place] [facility] [address] [id number] [place] [address]- 7396 10 Jul, 2011 [facility] [place] [facility] [address] [id number] [place] [address]- 0281 Jun, [facility] [facility] [address] [id number] [place] [address]- 5218 Jun, [facility] [place] [facility] [address] [id number] [place] [address]- 1050 Jun, [facility] [facility] [address] [id number] [place] [address]- 6397 Jun, [facility] [facility] [address] [id number] [place] [address]- 9416 Jun, [facility] [place] [facility] [address] [id number] [place] [address]- 7776 May, [facility] [place] [facility] [address] [id number] [place] [address] 2546 May, [facility] [place] [facility] [address] [id number] [place] [address]- 4559 May, [facility] [place] [facility] [address] [id number] [place] [address]- 6488 14 May, 2011 [facility] [place] [facility] [address] [id number] [place] [address]- 3400 12 May, 2011 [facility] [place] [facility] [address] [id number] [place] [address]- 8140 May, [facility] [place] [facility] [address] [id number] [place] [address]- 2908 May, [facility] [place] [facility] [address] [id number] [place] [address]- 8069 Apr, [facility] [place] [facility] [address] [id number] [place] [address]- 5393 Apr, [facility] [place] [facility] [address] [id number] [place] [address]- 2382 Apr, [facility] [place] [facility] [address] [id number] [place] [address]- 3966 Apr, [facility] [place] [facility] [address] [id number] [place] [address] Apr, [facility] [place] [facility] [address] [id number] [place] [address] Apr, [facility] [place] [facility] [address] [id number] [place] [address] Mar, [facility] [place] [facility] [address] [id number] [address] Mar, [facility] [place] [facility] [address] [id number] [address] Mar, [facility] [place] [facility] [address] [id number] [place] [address] Mar, [facility] [place] [facility] [address] [id number] [address] Jan, [facility] [place] [facility] [address] [id number] [place] [address] Dec, [facility] [place] [facility] [address] [id number] [place] [address] 13 Dec, 2010 [facility] [address] [id number] [place] [address] 11 Oct, 2010 [facility] [place] [facility] [address] [id number] [place] [address] 20 Sep, 2010 [facility] [address] [id number] [place] [address] 14 Sep, 2010 [facility] [address] [id number] [place] [address] 17 Jul, 2010 [facility] [address] [id number] [place] [address], [place] [address] 16 Jul, 2010 [facility] [address] [id number] [place] [address] 31 May, 2010 [facility] [address] [id number] [place] [address] 2542 May, [facility] [address] [id number] [place] [address] 08 May, 2010 [facility] [address] [id number] [place] [address] May, [facility] [address] [id number] [place] [address] Apr, [facility] [place] [facility] [address] [id number] [place] [address] Apr, [facility] [address] [id number] [place] [address] 25[address] Apr, [facility] [place] [facility] [address] [id number] [place] [address] Apr, [facility] [place] [facility] [address] [id number] [place] [address] 2542 Apr, [facility] [address] [id number] [place] [address] Mar, [facility] [place] [facility] [address] [id number] [place] [address] 14 Mar, 2010 [facility] [place] [facility] [address] [id number] [place] [address] 13 Mar, 2010 [facility] [place] [facility] [address] [id number] [place] [address] 12 Mar, 2010 [facility] [place] [facility] [address] [id number] [place] [address] 4767 20 Jan, 2010 [facility] [place] [facility] [address] [id number] [place] [address] 15 Dec, 2009 [facility] [place] [facility] [address] [id number] [place] [address] 10 Sep, 2009 [facility] [place] [facility] [address] [id number] [place] [address] 08 May, 2009 [facility] [place] [facility] [address] [id number] [place] [address] 06 May, 2009 [facility] [place] [facility] [address] [id number] [place] [address] May, [facility] [place] [facility] [address] [id number] [place] [address] 17 Apr, 2009 [facility] [place] [facility] [address] [id number] [address] 17 Apr, 2009 [facility] [place] [facility] [address] [id number] [place] [address] 10 Apr, 2009 [facility] [place] [facility] [address] [id number] [place] [address] 10 Apr, 2009 [facility] [place] [facility] [address] [id number] [place] [address]83 09 Apr, 2009 [facility] [place] [facility] [address] [id number] [place] [address] 15 Mar, 2009 [facility] [place] [facility] [address] [id number] [address] Mar, [facility] [address] [id number] [place] [address] Jul, IMMUNIZATIONS No Known Immunizations SOCIAL HISTORY [...] 08/2017 Surgical History nephrectomy 03/2017 Hospitalization History [facility] 12/20/15 Hospitalization History [facility]- Abd pain 03/07/2017 Hospitalization History [facility]- Abd pain 03/14/2017 Hospitalization History [facility]- No bowel movement, rash 04/13/2017 Hospitalization History [facility]- Abd pain r/t kidney surgery on 04/17/2017 Hospitalization History [facility]- Abd pain r/t kidney surgery on 04/18/2017 Hospitalization History [facility]- Lower abd pain 04/30/2017 Hospitalization History [facility]- Cannot urinate 05/30/2017 Hospitalization History [facility]- Pancreatitis Sx 06/29/2017 Hospitalization History [facility]- Stomach pain 07/22/2017 Hospitalization History [facility]- Left side pain 08/12/2017 Hospitalization History [facility]- Incision site infection 08/30/2017 Hospitalization History [facility]- Post Op Seroma/Hematoma Left Abdomen. Discharged 09/04/17- Dr Daniel 09/02/2017 Hospitalization History [facility]- Right shoulder and back pain 2017 Hospitalization History [facility]- Shoulder/Back pain 11/11/2017 Hospitalization History [facility]- Right shoulder blade pain 12/04/2017 Hospitalization History [facility]- C-Diff 12/13/2017 Hospitalization History C diff et MRSA 12/27/2017
--- OUTSIDE RECORDS SUMMARY | 2018-02-24 14:23 | XMS REPORT ---
Author Author [facility] Address [address] [place] [address] Care Team Providers Care [employer] Field Supervisor Name Role Phone CARMEN GIBBS Unavailable PROBLEMS Type Condition ICD9-CM Code ONX49-ZP Code Onset Dates Condition Status SNOMED Code Problem Polydipsia R63.1 Active 84696087 Problem Trichotillomania F63.3 Active 65735733 Problem Atelectasis J98.11 Active 85829516 Problem Intestinal malabsorption, unspecified K90.9 Active 58893667 Problem Chronic fatigue R53.82 Active 36278686 Problem Generalized social phobia F40.11 Active 92050736 Problem Restless leg syndrome G25.81 Active 16106672 Problem Moderate episode of recurrent major depressive disorder F33.1 Active 248470358 Problem Chronic post-traumatic stress disorder (PTSD) F43.12 Active 466792246 Problem History of renal cell carcinoma Z85.528 Active 437893164 Problem Chronic tension-type headache, intractable G44.221 Active 828182379 Problem Nodule of left lung R91.1 Active 696950084 Problem Hirsuties L68.0 Active 376635486 Problem FH: polycystic ovary Z84.2 Active 312864149 Problem Morbid (severe) obesity due to excess calories E66.01 Active 108011051 Problem Chronic pancreatitis K86.1 Active 465045112 Problem Hyperlipidemia, mixed E78.2 Active 594711471 Problem Asthma J45.909 Active 514981169 ALLERGIES No Information ENCOUNTERS Encounter Location Date Diagnosis [facility] [address] [facility] [id number] [address] Mar, [facility] [id number] [address] 6480 Feb, [facility] [address] [id number] [address] 2776 Jan, Acute pain of right knee M25.561 ; Right upper quadrant abdominal pain R10.11 and BMI 45.0-49.9, adult Z68.42 [facility] [id number] [place] [address] 30918- 3410 Jan, [facility] [id number] [place] [address] 50184- 4572 Jan, [facility] [id number] [place] [address] 86816- 5640 Dec, [facility] [id number] [place] [address] 66726- 6153 Dec, Intestinal malabsorption, unspecified K90.9 and Diarrhea, unspecified R19.7 [place] [id number] [place] [address] 89930- 1350 Dec, [facility] [id number] [place] [address] 64722- 9206 Dec, Strep throat J02.0 ; Intestinal malabsorption, unspecified K90.9 ; Diarrhea, unspecified R19.7 ; Postoperative seroma involving digestive system after non-digestive system procedure K91.873 ; Hyperlipidemia, mixed E78.2 and BMI 45.0-49.9, adult Z68.42 [facility] [id number] [place] [address] 59188- 4123 Dec, [facility] [id number] [place] [address] 56391- 5162 Dec, Nausea R11.0 [facility] [id number] [place] [address] 47341- 2061 Dec, [facility] [id number] [place] [address] 54951 -2464 Dec, Sore throat J02.9 ; Strep throat J02.0 and BMI 45.0-49.9, adult Z68.42 [facility] [id number] [place] [address] 97107- 5552 Dec, [facility] [address] [place] [address] 1858 Dec, [facility] [address]65[address] [address] 4778 Dec, [facility] [address] [place] [address]- 5417 Dec, [facility] [address] [address] 0276 Dec, [facility] [address] [place] [address]- 6398 Dec, [facility] [address], [place] [address]- 0782 Dec, [facility] [address]005[address], [place] [address]- 5040 Dec, [facility] [address]65[address], [place] [address] 1529 Dec, Clostridium difficile colitis A04.72 ; Intractable vomiting with nausea, unspecified vomiting type R11.2 and BMI 45.0-49.9, adult Z68.42 [facility] [address]65[address] [address] 1597 Dec, [facility] [address] [address]- 8354 Nov, [facility] [address] [address]- 3699 Nov, [facility] [address] [address]- 7784 Nov, [facility] [address], [place] [address]- 7092 Nov, [facility] [address], [place] [address] Nov, [place] [address], [place] [address]- 3213 Nov, Hyperlipidemia, mixed E78.2 [facility] [id number] [place] [address] 46014 -1402 Nov, Acute suppurative otitis media of right ear without spontaneous rupture of tympanic membrane, recurrence not specified H66.001 and BMI 45.0-49.9, adult Z68.42 [place] [id number] [place] [address] 45962- 8575 Nov, Hyperlipidemia, mixed E78.2 [place] [id number] [place] [address] 14120- 3575 Nov, [place] [id number] [place] [address] 42246- 5274 Nov, [address] [address]- 2774 Nov, Nodule of left lung R91.1 [place] [id number] [place] [address] 02182- 2123 Nov, Medicare annual wellness visit, initial Z00.00 [...] and Encounter for immunization Z23 [place] [id number] [place] [address] 84280- 2275 October, [place] [id number] [place] [address] 21183- 4487 October, Nodule of left lung R91.1 [place] [id number] [place] [address] 71268- 0078 October, Nodule of left lung R91.1 [place] [id number] [place] [address] 15876- 0175 October, Recurrent major depressive disorder, in partial remission F33.41 ; Restless leg syndrome G25.81 ; Generalized social phobia F40.11 ; Chronic post-traumatic stress disorder (PTSD) F43.12 ; BMI 45.0-49.9, adult Z68.42 and Trichotillomania F63.3 [place] [id number] [place] [address] 45703- 7241 October, [place] [id number] [place] [address] 77661- 1536 Sep, Chronic fatigue R53.82 and BMI 45.0-49.9, adult Z68.42 [place] [id number] [place] [address] 35702- 3281 Aug, [place] [id number] [place] [address] 47818- 4005 Jul, Restless leg syndrome G25.81 and B12 deficiency E53.8 [place] [id number] [place] [address] 48908- 9593 Jul, [place] [id number] [place] [address] 83693- 0387 Jul, [place] [id number] [place] [address] 41131- 1359 Jun, [place] [id number] [place] [address] 40879- 9643 Jun, Fatigue, unspecified type R53.83 ; History of renal cell carcinoma Z85.528 ; Chronic pancreatitis K86.1 ; Restless leg syndrome G25.81 ; Dark urine R82.99 and BMI 45.0-49.9, adult Z68.42 [place] [id number] [place] [address] 71638- 6657 Jun, [facility] [id number] [address]- 8351 Jun, [facility] [address], [place] [address]- 5500 Jun, [facility] [id number] [address]- 2852 Jun, [facility] [address] 5766 May, Chronic post-traumatic stress disorder (PTSD) F43.12 ; Moderate episode of recurrent major depressive disorder F33.1 ; Trichotillomania F63.3 and Generalized social phobia F40.11 [facility] [address], [place] [address]- 9502 May, [facility] [address], [place] [address]- 9783 May, Chronic post-traumatic stress disorder (PTSD) F43.12 ; Moderate episode of recurrent major depressive disorder F33.1 ; Trichotillomania F63.3 and Generalized social phobia F40.11 [facility] [id number] [address]- 0711 May, Hyperlipidemia, mixed E78.2 ; Morbid (severe) obesity due to excess calories E66.01 ; Chronic post-traumatic stress disorder (PTSD) F43.12 ; Moderate episode of recurrent major depressive disorder F33.1 ; Trichotillomania F63.3 and Generalized social phobia F40.11 [facility] [id number] [address]- 7310 Apr, [facility] [address], [place] [address]- 0533 Apr, Hyperlipidemia, mixed E78.2 ; Morbid (severe) obesity due to excess calories E66.01 ; Chronic post-traumatic stress disorder (PTSD) F43.12 ; Moderate episode of recurrent major depressive disorder F33.1 ; Trichotillomania F63.3 and Generalized social phobia F40.11 [facility] [id number] [place] [address] 94874- 0008 Apr, Trichotillomania F63.3 ; Generalized social phobia F40.11 ; Chronic post-traumatic stress disorder (PTSD) F43.12 and Moderate episode of recurrent major depressive disorder F33.1 [place] [id number] [place] [address] 17517- 6831 Apr, [facility] [id number] [place] [address] 71676- 4523 Apr, [place] [id number] [place] [address] 82822- 1556 Mar, Moderate episode of recurrent major depressive disorder F33.1 ; Trichotillomania F63.3 ; Chronic post-traumatic stress disorder (PTSD) F43.12 ; Generalized social phobia F40.11 and Restless leg syndrome G25.81 [place] [id number] [place] [address] 21654- 0643 Mar, [place] [address] 25798- 6087 Mar, [place] [id number] [place] [address] 18681- 3854 Feb, Left kidney mass N28.89 [place] [id number] [place] [address] 26360- 9778 Jan, [place] [id number] [place] [address] 37985- 9145 Dec, Polydipsia R63.1 ; Chronic pancreatitis K86.1 and Fatigue, unspecified type R53.83 [facility] [id number] [place] [address] 41300- 0826 Nov, [place] [id number] [place] [address] 95431- 8758 Nov, [place] [id number] [place] [address] 20313- 2651 Nov, Headache around the eyes R51 [facility] [id number] [place] [address] 72573- 2944 Nov, [facility] [id number] [place] [address] 14326- 2444 October, STD exposure Z20.2 [facility] [id number] [place] [address] 36277- 9150 October, STD exposure Z20.2 [facility] [id number] [place] [address] 441934- 6823 October, Chronic post-traumatic stress disorder (PTSD) F43.12 ; Generalized social phobia F40.11 ; Trichotillomania F63.3 and Restless leg syndrome G25.81 [place] [id number] [place] [address] 88604- 5967 October, [facility] [id number] [place] [address] 87548- 0166 Sep, [facility] [id number] [place] [address] 74916- 5699 Aug, [facility] [id number] [place] [address] 47384- 6155 Aug, [place] [id number] [place] [address] 54896- 3379 Aug, Neck mass R22.1 [place] [id number] [place] [address] 25742- 1744 Aug, Atelectasis J98.11 [place] [id number] [place] [address] 10303- 4378 28 Jul, 2016 Hyperlipidemia, mixed E78.2 ; Atypical pneumonia J18.9 and Neck mass R22.1 [place] [id number] [place] [address] 39851- 2622 15 Jul, 2016 Hemoptysis R04.[address] [place] [address] 71477- 3239 08 Jul, 2016 Acute non-recurrent pansinusitis J01.40 ; Hemoptysis R04.2 ; Polydipsia R63.1 and Malaise R53.81 [facility] [place] [id number] [place] [address] 96927 -3061 May, Other viral agents as the cause of diseases classified elsewhere B97.89 and Acute upper respiratory infection, unspecified J06.9 [facility] [place] [id number] [place] [address] 06522 -9906 Mar, Nausea R11.0 [facility] [place] [id number] [place] [address] 64032 -5512 Dec, Hives L50.9 [place] [id number] [place] [address] 01796- 6267 Dec, [facility] [place] [id number] [place] [address] 09849 -4751 Dec, Cutaneous abscess of limb, unspecified L02.419 ; Cellulitis of unspecified part of limb L03.119 ; Encounter for incision and drainage procedure Z01.89 and Encounter for recheck of abscess following incision and drainage Z09 [facility] [address] [place] [address] 09034 -5546 Dec, Abscess of leg, right L02.415 [place] [id number] [place] [address] 54962- 2901 08 Dec, 2015 Cellulitis of unspecified part of limb L03.119 and Cutaneous abscess of limb, unspecified L02.419 [place] [address] [place] [address] 79925- 2447 Dec, [place] [address] [place] [address] 89232- 7985 Dec, [facility] [id number] [place] [address] 42242 -0502 Aug, [facility] [id number] [place] [address] 79306- 2066 Aug, [facility] [id number] [place] [address] 49657 -8534 04 Jul, 2015 Pain in unspecified wrist M25.539 and Back pain, thoracic M54.6 [facility] [id number] [place] [address] 48918 -1009 13 Jun, 2015 Strain of right wrist, initial encounter S66.911A [place] [address] 05410- 8468 Jun, Chronic pancreatitis, unspecified pancreatitis type K86.1 ; Hirsuties L68.0 ; Morbid (severe) obesity due to excess calories E66.01 ; Chronic pancreatitis K86.1 and Asthma J45.909 [place] [id number] [place] [address] 93438- 8001 May, [place] [id number] [place] [address] 60846- 2663 May, Hyperlipidemia, mixed E78.2 and Muscle spasm of back M62.830 [place] [id number] [place] [address] 61262- 3561 Apr, [place] [id number] [place] [address] 42388- 7791 Apr, Torticollis M43.6 [place] [id number] [place] [address] 87252- 8037 Apr, Right-sided thoracic back pain M54.6 [place] [id number] [place] [address] 68073- 2578 Mar, Rash R21 [place] [id number] [place] [address] 03546- 6794 Mar, [place] [address] [address]- 9929 Jan, [facility] [id number] [place] [address] 588817- 2876 Dec, [facility] [address] [id number] 0117 Dec, Urinary frequency 788.41 and Nocturia more than twice per night 788.43 [facility] [id number] [place] [address] 71126- 6094 Nov, [facility] [id number] [place] [address] 369709- 9152 Nov, [facility] [id number] [place] [address] 41203- 2754 Nov, Abdominal pain 789.00 [facility] [id number] [place] [address] 90748- 8173 October, TDAP DX V06.1 [facility] [id number] [place] [address] 18044- 2451 October, [facility] [id number] [place] [address] 822146- 3549 October, Disturbance of skin sensation 782.0 ; Wrist pain, right 719.43 ; Hyperlipidemia 272.4 and Skin lesion of face 709.9 [facility] [address] [address]- 0884 Sep, [facility] [address] [address]- 5680 Sep, [facility] [id number] [place] [address] 105691- 2926 Aug, [facility] [address], [place] [address]- 5267 Aug, [facility] [id number] [place] [address] [id number]- 3586 23 Aug, 2014 [facility] [place] [facility] [address] [id number] [place] [address]- 4896 23 Aug, 2014 [facility] [place] [facility] [address] [id number] [place] [address]- 0541 16 Aug, 2014 [facility] [place] [facility] [address] [id number] [place] [address]- 1118 16 Aug, 2014 [facility] [place] [facility] [address] [id number] [place] [address]- 3161 14 Aug, 2014 [facility] [place] [facility] [address] [id number] [place] [address]- 7257 14 Aug, 2014 [facility] [place] [facility] [address] [id number] [place] [address]- 3704 Aug, [facility] [place] [facility] [address] [id number] [place] [address]- 5265 Aug, [facility] [place] [facility] [address] [id number] [place] [address]- 1827 04 Aug, 2014 [facility] [place] [facility] [address] [id number] [place] [address]- 9487 Aug, [facility] [place] [facility] [address] [id number] [place] [address]- 3781 Aug, [facility] [place] [facility] [address] [id number] [place] [address]- 8174 Aug, [facility] [place] [facility] [address] [id number] [address]- 6194 Jul, 2014 [facility] [place] [facility] [address] [id number] [place] [address]- 7543 Jul, 2014 [facility] [place] [facility] [address] [id number] [place] [address]- 8230 Jul, 2014 [facility] [place] [facility] [address] [id number] [place] [address]- 1930 Jul, [facility] [place] [facility] [address] [id number] [place] [address]- 7784 Jul, [facility] [address] [id number] [place] [address]- 2421 Jul, [facility] [address] [id number] [place] [address]- 1838 Jun, [facility] [address] [id number] [place] [address]- 3004 Jun, [facility] [address] [id number] [place] [address]- 4193 Jun, [facility] [address] [id number] [place] [address]- 1185 Jun, [facility] [address] [id number] [place] [address]- 8422 Jun, [facility] [address] [id number] [place] [address]- 3190 Jun, [facility] [address] [id number] [place] [address]- 8413 Jun, [facility] [address] [id number] [place] [address]- 9407 Jun, [facility] [address] [id number] [place] [address]- 3019 May, [facility] [place] [facility] [address] [id number] [place] [address]- 5247 May, [facility] [address] [id number] [place] [address]- 6613 18 May, 2014 [facility] [place] [facility] [address] [id number] [place] [address]- 5249 18 May, 2014 [facility] [place] [facility] [address] [id number] [place] [address]- 9715 15 May, 2014 [facility] [place] [facility] [address] [id number] [place] 3807 May, [facility] [place] [facility] [address] [id number] [place] [address] May, [facility] [place] [facility] [address] [id number] [place] [address] May, [facility] [place] [facility] [address] [id number] [place] [address] May, [facility] [place] [facility] [address] [id number] [place] [address] May, [facility] [place] [facility] [address] [id number] [place] [address] May, [facility] [place] [facility] [address] [id number] [place] [address] May, [facility] [place] [facility] [address] [id number] [place] [address] Apr, [facility] [place] [facility] [address] [id number] [place] [address] Apr, [facility] [place] [facility] [address] [id number] [place] [address] Apr, [facility] [place] [facility] [address] [id number] [place] [address] Apr, [facility] [place] [facility] [address] [id number] [place] [address] Apr, [facility] [place] [facility] [address] [id number] [place] [address] Apr, [facility] [place] [facility] [address] [id number] [place] [address] Apr, [facility] [place] [facility] [address] [id number] [place] [address] Apr, [facility] [place] [facility] [address] [id number] [place] [address] Apr, [facility] [place] [facility] [address] [id number] [place] [address] Apr, [facility] [place] [facility] [address] [id number] [place] [address] Apr, [facility] [place] [facility] [address] [id number] [place] [address] Apr, [facility] [place] [facility] [address] [id number] [place] [address] Mar, [facility] [place] [facility] [address] [id number] [place] [address] Mar, [facility] [place] [facility] [address] [id number] [place] [address] Mar, [facility] [place] [facility] [address] [id number] [place] [address] Mar, [facility] [place] [facility] [address] [id number] [place] [address] 10 Feb, 2014 [facility] [place] [facility] [address] [id number] [place] [address] 10 Feb, 2013 [facility] [place] [facility] [address] [id number] [place] [address] 05 Feb, 2013 [facility] [place] [facility] [address] [id number] [place] [address] 05 Feb, 2013 [facility] [place] [facility] [address] [id number] [place] [address] Feb, 2013 [facility] [place] [facility] [address] [id number] [place] [address] Feb, 2013 [facility] [place] [facility] [address] [id number] [place] [address] Jan, [facility] [place] [facility] [address] [id number] [place] [address] Jan, [facility] [place] [facility] [address] [id number] [place] [address] Jan, [facility] [place] [facility] [address] [id number] [place] [address] Jan, [facility] [place] [facility] [address] [id number] [place] [address] Jan, [facility] [place] [facility] [address] [id number] [place] [address] Jan, [facility] [place] [facility] [address] [id number] [place] [address] Jan, [facility] [place] [facility] [address] [id number] [place] [address] Jan, [facility] [place] [facility] [address] [id number] [place] [address] Jan, [facility] [place] [facility] [address] [address] [id number] [place] [address] Jan, [facility] [place] [facility] [address] [id number] [place] [address] Jan, [facility] [place] [facility] [address] [id number] [place] [address] 9417 Jan, [facility] [place] [facility] [address] [id number] [place] [address] 8314 Jan, [facility] [place] [facility] [address] [id number] [place] [address]365 Jan, [facility] [place] [facility] [address] [id number] [place] [address]- 8511 Dec, [facility] [place] [facility] [address] [id number] [place] [address]296 Dec, [facility] [place] [facility] [address] [id number] [place] [address] 7834 Dec, [facility] [place] [facility] [address] [id number] [place] [address] Dec, [facility] [place] [facility] [address] [id number] [place] [address] 2871 Nov, [facility] [place] [facility] [address] [id number] [place] [address] 4033 Nov, [facility] [place] [facility] [address] [id number] [place] [address]- 1737 Nov, [facility] [place] [facility] [address] [id number] [place] [address]- 0636 Nov, [facility] [place] [facility] [address] [id number] [place] [address]- 2145 Nov, [facility] [place] [facility] [address] [id number] [place] [address] 5807 October, [facility] [place] [facility] [address] [id number] [place] [address]- 6975 October, [facility] [place] [facility] [address] [id number] [place] [address]- 6772 October, [facility] [place] [facility] [address] [id number] [place] [address]- 9271 October, [facility] [place] [facility] [address] [id number] [place] [address]- 5518 October, [facility] [place] [facility] [address] [id number] [place] [address]- 5755 October, [facility] [place] [facility] [address] [id number] [place] [address]- 3515 October, [facility] [place] [facility] [address] [id number] [place] [address]- 0142 October, [facility] [place] [facility] [address] [id number] [place] [address]- 8865 October, [facility] [place] [facility] [address] [id number] [place] [address]- 4637 October, [facility] [place] [facility] [address] [id number] [place] [address]- 6482 October, [facility] [place] [facility] [address] [id number] [place] [address]- 8040 October, [facility] [place] [facility] [address] [id number] [place] [address]- 5759 October, [facility] [place] [facility] [address] [id number] [place] [address]- 0529 October, [facility] [place] [facility] [address] [id number] [place] [address]- 6323 Sep, [facility] [place] [facility] [address] [id number] [place] [address]- 6683 Sep, [facility] [place] [facility] [address] [id number] [place] [address]- 6584 Sep, [facility] [place] [facility] [address] [id number] [place] [address]- 7813 Sep, [facility] [place] [facility] [address] [id number] [place] [address]- 1236 Sep, [facility] [place] [facility] [address] [id number] [place] [address]- 5415 Sep, [facility] [place] [facility] [address] [id number] [place] [address]- 1232 Sep, [facility] [place] [facility] [address] [id number] [place] [address]- 3330 Sep, [facility] [place] [facility] [address] [id number] [place] [address]- 4949 Sep, [facility] [place] [facility] [address] [id number] [place] [address]- 6442 Sep, [facility] [place] [facility] [address] [id number] [place] [address]- 5951 Sep, [facility] [place] [facility] [address] [id number] [place] [address]- 3014 Sep, [facility] [place] [facility] [address] [id number] [place] [address]- 5612 Sep, [facility] [place] [facility] [address] [id number] [place] [address]- 6776 Sep, [facility] [place] [facility] [address] [id number] [place] [address]- 5798 Sep, [facility] [place] [facility] [address] [id number] [place] [address]- 7449 Aug, [facility] [place] [facility] [address] [id number] [place] [address]- 2611 Aug, [facility] [place] [facility] [address] [id number] [place] [address]- 3425 Aug, [facility] [place] [facility] [address] [id number] [place] [address]- 8861 Aug, [facility] [place] [facility] [address] [id number] [place] [address]- 9107 Jul, [facility] [place] [facility] [address] [id number] [place] [address]- 7969 Jul, [facility] [place] [facility] [address] [id number] [place] [address]- 3610 Jul, [facility] [place] [facility] [address] [id number] [place] [address]- 1817 Jul, [facility] [place] [facility] [address] [id number] [place] [address]- 0499 Jun, [facility] [place] [facility] [address] [id number] [place] [address]- 2973 Jun, [facility] [place] [facility] [address] [id number] [place] [address]- 6394 Jun, [facility] [place] [facility] [address] [id number] [place] [address]- 1832 Jun, [facility] [place] [facility] [address] [id number] [place] [address]- 6178 Jun, [facility] [place] [facility] [address] [id number] [place] [address]- 6878 10 Jun, 2013 [facility] [address] [id number] [place] [address] Jun, [facility] [place] [facility] [address] [id number] [place] [address]- 8343 08 Jun, 2013 [facility] [address] [id number] [place] [address]- 5790 20 May, 2013 [facility] [place] [facility] [address] [id number] [place] [address]- 2695 20 May, 2013 [facility] [address] [id number] [place] [address]- 0196 18 May, 2013 [facility] [place] [facility] [address] [id number] [place] [address]- 8377 18 May, 2013 [facility] [address] [id number] [place] [address]- 3485 17 May, 2013 [facility] [address] [facility] [id number] [place] [id number] 17 May, 2013 [facility] [place] [facility] [address] [id number] [place] [address]- 9009 17 May, 2013 [facility] [place] [facility] [address] [id number] [place] [address]- 7471 17 May, 2013 [facility] [place] [facility] [address] [id number] [place] [address]- 5203 16 May, 2013 [facility] [place] [facility] [address] [id number] [place] [address]- 2977 16 May, 2013 [facility] [place] [facility] [address] [id number] [place] [address]- 5738 14 May, 2013 [facility] [place] [facility] [address] [id number] [place] [address]- 2406 14 May, 2013 [facility] [place] [facility] [address] [id number] [place] [address]- 5767 13 May, 2013 [facility] [place] [facility] [address] [id number] [place] [address]- 4692 13 May, 2013 [facility] [address] [id number] [place] [address]- 0425 May, [facility] [place] [facility] [address] [id number] [place] [address]- 3256 May, [facility] [address] [id number] [place] [address]- 7406 May, [facility] [place] [facility] [address] [id number] [place] [address]- 2800 May, [facility] [address] [id number] [place] [address]- 5350 Apr, [facility] [place] [facility] [address] [id number] [place] [address]- 4037 Apr, [facility] [place] [facility] [address] [id number] [place] [address]- 4554 Apr, [facility] [address] [id number] [place] [address]- 6529 Apr, [facility] [place] [facility] [address] [id number] [place] [address]- 5309 Aug, [facility] [address] [id number] [place] [address]- 0328 Aug, [facility] [place] [facility] [address] [id number] [place] [address]- 0585 Aug, [facility] [place] [facility] [address] [id number] [place] [address]- 7026 05 Aug, 2012 [facility] [place] [facility] [address] [id number] [place] [address]- 1601 04 Jul, 2012 [facility] [place] [facility] [address] [id number] [place] [address]- 1687 Jun, [facility] [place] [facility] [address] [id number] [place] [address]- 2206 Jun, [facility] [address] [id number] [place] [address]- 4245 Jun, [facility] [place] [facility] [address] [id number] [place] [address]- 1512 Jun, [facility] [place] [facility] [address] [facility] [id number] [place] [address] May, [facility] [place] [facility] [address] [id number] [place] [address]- 5035 May, [facility] [place] [facility] [address] [id number] [place] [address]- 4295 May, [facility] [place] [facility] [address] [id number] [place] [address]- 7693 May, [facility] [place] [facility] [address] [id number] [place] [address]- 1222 May, [facility] [place] [facility] [address] [id number] [place] [address]- 8901 May, [facility] [place] [facility] [address] [id number] [place] [address]- 1202 May, [facility] [place] [facility] [address] [id number] [place] [address]- 2440 Apr, [facility] [place] [facility] [address] [id number] [address]- 9469 Apr, [facility] [place] [facility] [address] [id number], [place] [address]- 0101 Apr, [facility] [place] [facility] [address] [id number] [place] [address]- 4067 Apr, [facility] [place] [facility] [address] [id number] [place] [address]- 3155 Apr, [facility] [place] [facility] [address] [facility] [id number] [place] [address]- 7895 Apr, [facility] [place] [facility] [address] [id number] [place] [address]- 8584 Apr, [facility] [place] [facility] [address] [id number] [place] [address]- 4117 Mar, 2011 [facility] [place] [facility] [address] [id number] [place] [address] Mar, [facility] [place] [facility] [address] [id number] [place] [address]- 7262 Mar, [facility] [place] [facility] [address] [id number] [place] [address]- 3346 Mar, [facility] [place] [facility] [address] [id number] [place] [address] Mar, [facility] [place] [facility] [address] [id number] [place] [address]- 9635 Mar, [facility] [place] [facility] [address] [id number] [place] [address]- 6586 Mar, [facility] [place] [facility] [address] [id number] [place] [address]- 6224 Mar, [facility] [place] [facility] [address] [id number] [place] [address]- 5849 Mar, [facility] [place] [facility] [address] [facility] [id number] [place] [address]- 1848 15 Mar, 2012 [facility] [place] [facility] [address] [id number] [place] [address]- 2810 Mar, [facility] [place] [facility] [address] [id number], [place] [address]- 1433 Mar, [facility] [place] [facility] [address] [id number] [place] [address]- 9978 06 Feb, 2012 [facility] [place] [facility] [address] [id number] [place] [address]- 5651 Jan, [facility] [place] [facility] [address] [id number], [place] [address]- 4122 Jan, [facility] [place] [facility] [address] [id number] [place] [address]- 8114 Jan, [facility] [place] [facility] [address] [id number] [place] [address]- 4112 Jan, [facility] [place] [facility] [address] [id number] [place] [address]- 8497 Jan, [facility] [place] [facility] [address] [id number] [place] [address]- 2079 Dec, [facility] [address] [id number] [place] [address]- 0024 Dec, [facility] [place] [facility] [address] [id number] [place] [address]- 0630 Nov, [facility] [address] [id number] [place] [address]- 2173 Nov, [facility] [address] [id number] [place] [address]- 3177 Nov, [facility] [place] [facility] [address] [id number] [place] [address]- 5771 October, [facility] [address] [id number] [place] [address]- 7886 October, [facility] [place] [facility] [address] [id number] [place] [address]- 5239 October, [facility] [place] [facility] [address] [id number] [place] [address]- 4110 October, [facility] [place] [facility] [address] [id number] [place] [address]- 0812 October, [facility] [place] [facility] [address] [id number] [place] [address]- 5816 October, [facility] [place] [facility] [address] [id number] [place] [address]- 0726 October, [facility] [place] [facility] [address] [id number] [place] [address]- 2491 26 Sep, 2011 [facility] [place] [facility] [address] [id number] [place] [address]- 2833 26 Sep, 2011 [facility] [place] [facility] [address] [id number] [place] [address]- 2018 26 Sep, 2011 [facility] [place] [facility] [address] [id number] [place] [address]- 9079 25 Sep, 2011 [facility] [place] [facility] [address] [id number] [place] [address]- 2053 24 Sep, 2011 [facility] [place] [facility] [address] [id number] [place] [address]- 4073 19 Sep, 2011 [facility] [place] [facility] [address] [id number] [place] [address]- 5321 17 Sep, 2011 [facility] [place] [facility] [address] [id number] [place] [address]- 2669 16 Sep, 2011 [facility] [place] [facility] [address] [id number] [place] [address]- 6167 16 Sep, 2011 [facility] [place] [facility] [address] [id number] [place] [address]- 8460 14 Sep, 2011 [facility] [place] [facility] [address] [id number] [place] [address]- 2763 13 Sep, 2011 [facility] [place] [facility] [address] [id number] [place] [address]- 7099 10 Sep, 2011 [facility] [place] [facility] [address] [id number] [place] [address]- 3709 09 Sep, 2011 [facility] [place] [facility] [address] [id number] [place] [address]- 8178 27 Aug, 2011 [facility] [place] [facility] [address] [id number] [place] [address]- 3426 12 Aug, 2011 [facility] [place] [facility] [address] [id number] [place] [address]- 8798 08 Aug, 2011 [facility] [place] [facility] [address] [id number] [place] [address]- 8624 Aug, [facility] [place] [facility] [address] [id number] [place] [address]- 2946 28 Jul, 2011 [facility] [place] [facility] [address] [id number] [place] [address]- 5276 22 Jul, 2011 [facility] [place] [facility] [address] [id number] [place] [address]- 9596 16 Jul, 2011 [facility] [place] [facility] [address] [id number] [place] [address] 2546 15 Jul, 2011 [facility] [place] [facility] [address] [id number] [place] [address]- 2916 14 Jul, 2011 [facility] [place] [facility] [address] [id number] [place] [address]- 7733 10 Jul, 2011 [facility] [place] [facility] [address] [id number] [place] [address]- 8969 Jun, [facility] [place] [facility] [address] [id number] [place] [address]- 0359 Jun, [facility] [place] [facility] [address] [id number] [place] [address]- 7932 Jun, [facility] [place] [facility] [address] [id number] [place] [address]- 8432 Jun, [facility] [place] [facility] [address] [id number] [place] [address]- 0785 Jun, [facility] [place] [facility] [address] [id number] [place] [address]- 9639 May, [facility] [place] [facility] [address] [id number] [place] [address] 2546 May, [facility] [place] [facility] [address] [id number] [place] [address]- 5802 May, [facility] [place] [facility] [address] [id number] [place] [address]- 0677 14 May, 2011 [facility] [place] [facility] [address] [id number] [place] [address]- 9363 12 May, 2011 [facility] [place] [facility] [address] [id number] [place] [address]- 8710 May, [facility] [place] [facility] [address] [id number] [place] [address]- 6231 May, [facility] [place] [facility] [address] [id number] [place] [address]- 7796 Apr, [facility] [place] [facility] [address] [id number] [place] [address]- 7391 Apr, [facility] [place] [facility] [address] [id number] [place] [address]- 9865 Apr, [facility] [place] [facility] [address] [id number] [place] [address]- 3446 Apr, [facility] [place] [facility] [address] [id number] [place] [address]- 2092 Apr, [facility] [place] [facility] [address] [id number] [place] [address]- 4541 Apr, [facility] [place] [facility] [address] [id number] [place] [address]- 1499 Mar, [facility] [place] [facility] [address] [id number], [place] [address]- 7356 Mar, [facility] [place] [facility] [address] [id number], [place] [address]- 9928 Mar, [facility] [place] [facility] [address] [id number] [place] [address]- 5792 Mar, [facility] [place] [facility] [address] [id number], [place] [address]- 9044 Jan, [facility] [place] [facility] [address] [id number] [place] [address]- 9952 Dec, [facility] [place] [facility] [address] [id number] [place] [address]- 9656 13 Dec, 2010 [facility] [address] [id number] [place] [address]- 1006 11 Oct, 2010 [facility] [place] [facility] [address] [id number] [place] [address] 2546 20 Sep, 2010 [facility] [address] [id number] [place] [address]- 4726 14 Sep, 2010 [facility] [address] [id number] [place] [address] 2546 17 Jul, 2010 [facility] [address] [id number] [place] [address], [place] [address]- 3766 16 Jul, 2010 [facility] [address] [id number] [place] [address]- 1908 31 May, 2010 [facility] [address] [id number] [place] [address] 254 May, [facility] [address] [id number] [place] [address] 08 May, 2010 [facility] [address] [id number] [place] [address] May, [facility] [address] [id number] [place] [address] Apr, [facility] [place] [facility] [address] [id number] [place] [address] Apr, [facility] [address] [id number] [place] [address] Apr, [facility] [place] [facility] [address] [id number] [place] [address] Apr, [facility] [place] [facility] [address] [id number] [place] [address] Apr, [facility] [address] [id number] [place] [address] Mar, [facility] [place] [facility] [address] [id number] [place] [address] 14 Mar, 2010 [facility] [place] [facility] [address] [id number] [place] [address] 13 Mar, 2010 [facility] [place] [facility] [address] [id number] [place] [address] 12 Mar, 2010 [facility] [place] [facility] [address] [id number] [place] [address] 20 Jan, 2010 [facility] [place] [facility] [address] [id number] [place] [address] 15 Dec, 2009 [facility] [place] [facility] [address] [id number], [place] [address] 10 Sep, 2009 [facility] [place] [facility] [address] [facility] [id number] [place] [address] 08 May, 2009 [facility] [place] [facility] [address] [id number], [place] [address] 06 May, 2009 [facility] [place] [facility] [address] [id number], [place] [address] May, [facility] [place] [facility] [address] [facility] [id number], [place] [address] 17 Apr, 2009 [facility] [place] [facility] [address] [id number], [place] [address] 17 Apr, 2009 [facility] [place] [facility] [address] [id number][place] [address] 10 Apr, 2009 [facility] [place] [facility] [address] [id number], [place] [address] 10 Apr, 2009 [facility] [place] [facility] [address] [id number], [place] [address] 09 Apr, 2009 [facility] [place] [facility] [address] [facility] [id number] [address] 15 Mar, 2009 [facility] [place] [facility] [address] [id number], [place] [address] Mar, [facility] [address] [facility] [id number] [place] [address] Jul, IMMUNIZATIONS No Known Immunizations SOCIAL HISTORY Never Assessed REASON FOR VISIT BP Reduction Challenge Enroll PLAN OF CARE VITAL SIGNS MEDICATIONS Unknown [...] 08/2017 Surgical History nephrectomy 03/2017 Hospitalization History Cellulitis-[facility] 12/20/15 Hospitalization History [facility]- Abd pain 03/07/2017 Hospitalization History [facility]- Abd pain 03/14/2017 Hospitalization History [facility]- No bowel movement, rash 04/13/2017 Hospitalization History [facility]- Abd pain r/t kidney surgery on 04/17/2017 Hospitalization History [facility]- Abd pain r/t kidney surgery on 04/18/2017 Hospitalization History [facility]- Lower abd pain 04/30/2017 Hospitalization History [facility]- Cannot urinate 05/30/2017 Hospitalization History [facility]- Pancreatitis Sx 06/29/2017 Hospitalization History [facility]- Stomach pain 07/22/2017 Hospitalization History [facility]- Left side pain 08/12/2017 Hospitalization History [facility]- Incision site infection 08/30/2017 Hospitalization History [facility]- Post Op Seroma/Hematoma Left Abdomen. Discharged 09/04/17- Dr Daniel 09/02/2017 Hospitalization History [facility]- Right shoulder and back pain 2017 Hospitalization History [facility]- Shoulder/Back pain 11/11/2017 Hospitalization History [facility]- Right shoulder blade pain 12/04/2017 Hospitalization History [facility]- C-Diff 12/13/2017 Hospitalization History C diff et MRSA 12/27/2017
--- OUTSIDE RECORDS SUMMARY | 2018-02-24 14:24 | XMS REPORT ---
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 Role Phone CARMEN GIBBS Unavailable PROBLEMS Type Condition ICD9-CM Code QVL77-HJ Code Onset Dates Condition Status SNOMED Code Problem Polydipsia R63.1 Active 77215350 Problem Trichotillomania F63.3 Active 66713926 Problem Atelectasis J98.11 Active 23396359 Problem Intestinal malabsorption, unspecified K90.9 Active 27407986 Problem Chronic fatigue R53.82 Active 55301510 Problem Generalized social phobia F40.11 Active 93739808 Problem Restless leg syndrome G25.81 Active 38214134 Problem Moderate episode of recurrent major depressive disorder F33.1 Active 668538361 Problem Chronic post-traumatic stress disorder (PTSD) F43.12 Active 980059959 Problem History of renal cell carcinoma Z85.528 Active 102331066 Problem Chronic tension-type headache, intractable G44.221 Active 256963600 Problem Nodule of left lung R91.1 Active 039061873 Problem Hirsuties L68.0 Active 361351045 Problem FH: polycystic ovary Z84.2 Active 323256430 Problem Morbid (severe) obesity due to excess calories E66.01 Active 995363879 Problem Chronic pancreatitis K86.1 Active 961971287 Problem Hyperlipidemia, mixed E78.2 Active 321656075 Problem Asthma J45.909 Active 858326085 ALLERGIES No Information ENCOUNTERS Encounter Location Date Diagnosis [facility] [address] [facility] [id number] [address] Mar, [facility] [id number] [address] Feb, [facility] [id number] [address] 8602 Jan, Acute pain of right knee M25.561 ; Right upper quadrant abdominal pain R10.11 and BMI 45.0-49.9, adult Z68.42 [facility] [id number] [place] [address] 98445- 8143 Jan, [facility] [id number] [place] [address] 14657- 3359 Jan, [facility] [id number] [place] [address] 20544- 4084 Dec, [facility] [id number] [place] [address] 59616- 9773 Dec, Intestinal malabsorption, unspecified K90.9 and Diarrhea, unspecified R19.7 [facility] [place] [id number] [place] [address] 70774- 1780 Dec, [facility] [id number] [place] [address] 14409- 4294 Dec, Strep throat J02.0 ; Intestinal malabsorption, unspecified K90.9 ; Diarrhea, unspecified R19.7 ; Postoperative seroma involving digestive system after non-digestive system procedure K91.873 ; Hyperlipidemia, mixed E78.2 and BMI 45.0-49.9, adult Z68.42 [facility] [id number] [place] [address] 16369- 8008 Dec, [facility] [id number] [place] [address] 43863- 3797 Dec, Nausea R11.0 [facility] [id number] [place] [address] 79266- 0461 Dec, [facility] [id number] [place] [address] 71607 -8238 Dec, Sore throat J02.9 ; Strep throat J02.0 and BMI 45.0-49.9, adult Z68.42 [facility] [id number] [place] [address] 81004- 9793 Dec, [facility] [address] [place] [address]- 4832 Dec, [facility] [address] [address]- 1268 Dec, [facility] [address] [place] [address]- 9502 Dec, [facility] [address], [place] [address]- 7940 Dec, [facility] [address] [place] [address]- 4230 Dec, [facility] [address] [address]- 8019 Dec, [facility] [address], [place] [address]- 2514 Dec, [facility] [address] [address]- 1069 Dec, Clostridium difficile colitis A04.72 ; Intractable vomiting with nausea, unspecified vomiting type R11.2 and BMI 45.0-49.9, adult Z68.42 [facility] [address], [place] [address]- 5201 Dec, [facility] [address] [address]- 6068 Nov, [facility] [address] [address]- 9171 Nov, [facility] [address], [place] [address]- 4550 Nov, [facility] [address] [address]- 7431 Nov, [facility] [address], [place] [address] Nov, [place] [address] [address]- 1420 Nov, Hyperlipidemia, mixed E78.2 [facility] IN [facility] [id number] [place] [address] 62459 -5630 Nov, Acute suppurative otitis media of right ear without spontaneous rupture of tympanic membrane, recurrence not specified H66.001 and BMI 45.0-49.9, adult Z68.42 [facility] [id number] [place] [address] 22497- 8216 Nov, Hyperlipidemia, mixed E78.2 [facility] [id number] [place] [address] 28552- 3301 Nov, [facility] [id number] [place] [address] 56456- 6213 Nov, [address] 62403- 4155 Nov, Nodule of left lung R91.1 [place] [id number] [place] [address] 17115- 1288 Nov, Medicare annual wellness visit, initial Z00.00 [...] adult Z68.42 and Encounter for immunization Z23 [place] [id number] [place] [address] 66031- 8601 October, [place] [id number] [place] [address] 98654- 3361 October, Nodule of left lung R91.1 [place] [id number] [place] [address] 52534- 9538 October, Nodule of left lung R91.1 [facility] [id number] [place] [address] 62635- 7413 October, Recurrent major depressive disorder, in partial remission F33.41 ; Restless leg syndrome G25.81 ; Generalized social phobia F40.11 ; Chronic post-traumatic stress disorder (PTSD) F43.12 ; BMI 45.0-49.9, adult Z68.42 and Trichotillomania F63.3 [facility] [id number] [place] [address] 64447- 1114 October, [facility] [id number] [place] [address] 84805- 2260 Sep, Chronic fatigue R53.82 and BMI 45.0-49.9, adult Z68.42 [place] [id number] [place] [address] 39030- 5768 Aug, [facility] [place] [id number] [place] [address] 58938- 5650 Jul, Restless leg syndrome G25.81 and B12 deficiency E53.8 [place] [id number] [place] [address] 78508- 9518 Jul, [facility] [id number] [place] [address] 57558- 6557 Jul, [facility] [id number] [place] [address] 30085- 4829 Jun, [facility] [id number] [place] [address] 94770- 6977 Jun, Fatigue, unspecified type R53.83 ; History of renal cell carcinoma Z85.528 ; Chronic pancreatitis K86.1 ; Restless leg syndrome G25.81 ; Dark urine R82.99 and BMI 45.0-49.9, adult Z68.42 [facility] [place] [id number] [place] [address] 11527- 0530 Jun, [facility] [id number] [address]- 6055 Jun, [facility] [address], [place] [address]- 8622 Jun, [facility] [id number] [address]- 6571 Jun, [facility] [address] 3394 May, Chronic post-traumatic stress disorder (PTSD) F43.12 ; Moderate episode of recurrent major depressive disorder F33.1 ; Trichotillomania F63.3 and Generalized social phobia F40.11 [facility] [address], [place] [address]- 0868 May, [facility] [address], [place] [address]- 3637 May, Chronic post-traumatic stress disorder (PTSD) F43.12 ; Moderate episode of recurrent major depressive disorder F33.1 ; Trichotillomania F63.3 and Generalized social phobia F40.11 [facility] [id number] [address]- 8098 May, Hyperlipidemia, mixed E78.2 ; Morbid (severe) obesity due to excess calories E66.01 ; Chronic post-traumatic stress disorder (PTSD) F43.12 ; Moderate episode of recurrent major depressive disorder F33.1 ; Trichotillomania F63.3 and Generalized social phobia F40.11 [facility] [id number] [address]- 2556 Apr, [facility] [address], [place] [address]- 5367 Apr, Hyperlipidemia, mixed E78.2 ; Morbid (severe) obesity due to excess calories E66.01 ; Chronic post-traumatic stress disorder (PTSD) F43.12 ; Moderate episode of recurrent major depressive disorder F33.1 ; Trichotillomania F63.3 and Generalized social phobia F40.11 [facility] [address] [place] [address] 95223- 6251 Apr, Trichotillomania F63.3 ; Generalized social phobia F40.11 ; Chronic post-traumatic stress disorder (PTSD) F43.12 and Moderate episode of recurrent major depressive disorder F33.1 [facility] [id number] [place] [address] 90116- 3969 Apr, [facility] [id number] [place] [address] 72374- 7637 Apr, [facility] [id number] [place] [address] 51615- 6142 Mar, Moderate episode of recurrent major depressive disorder F33.1 ; Trichotillomania F63.3 ; Chronic post-traumatic stress disorder (PTSD) F43.12 ; Generalized social phobia F40.11 and Restless leg syndrome G25.81 [facility] [place] [id number] [place] [address] 30386- 5019 Mar, [place] [address] 27886- 9074 Mar, [facility] [id number] [place] [address] 46435- 3729 Feb, Left kidney mass N28.89 [facility] [facility] [id number] [place] [address] 25831- 0419 Jan, [facility] [id number] [place] [address] 92256- 0689 Dec, Polydipsia R63.1 ; Chronic pancreatitis K86.1 and Fatigue, unspecified type R53.83 [facility] [id number] [place] [address] 33508- 7377 Nov, [place] [id number] [place] [address] 00639- 2803 Nov, [place] [id number] [place] [address] 90728- 6003 Nov, Headache around the eyes R51 [facility] [id number] [place] [address] 08826- 3161 Nov, [facility] [id number] [place] [address] 24045- 7680 October, STD exposure Z20.2 [facility] [id number] [place] [address] 15538- 8944 October, STD exposure Z20.2 [facility] [id number] [place] [address] 176862- 4716 October, Chronic post-traumatic stress disorder (PTSD) F43.12 ; Generalized social phobia F40.11 ; Trichotillomania F63.3 and Restless leg syndrome G25.81 [place] [id number] [place] [address] 31833- 6459 October, [facility] [id number] [place] [address] 31833- 3376 Sep, [facility] [id number] [place] [address] 62393- 9865 Aug, [facility] [id number] [place] [address] 47720- 6061 Aug, [facility] [id number] [place] [address] 51492- 5967 Aug, Neck mass R22.1 [facility] [id number] [place] [address] 10106- 1554 Aug, Atelectasis J98.11 [facility] [id number] [place] [address] 32068- 9568 28 Jul, 2016 Hyperlipidemia, mixed E78.2 ; Atypical pneumonia J18.9 and Neck mass R22.1 [facility] [facility] [id number] [place] [address] 78531- 2961 15 Jul, 2016 Hemoptysis R04.[address] [place] [address] 07156- 2098 08 Jul, 2016 Acute non-recurrent pansinusitis J01.40 ; Hemoptysis R04.2 ; Polydipsia R63.1 and Malaise R53.81 [facility] [place] [id number] [place] [address] 49004 -3221 May, Other viral agents as the cause of diseases classified elsewhere B97.89 and Acute upper respiratory infection, unspecified J06.9 [facility] [place] [id number] [place] [address] 60482 -2988 Mar, Nausea R11.0 [facility] [place] [id number] [place] [address] 02910 -6770 Dec, Hives L50.9 [place] [id number] [place] [address] 49810- 4420 Dec, [facility] [place] [id number] [place] [address] 31237 -2490 Dec, Cutaneous abscess of limb, unspecified L02.419 ; Cellulitis of unspecified part of limb L03.119 ; Encounter for incision and drainage procedure Z01.89 and Encounter for recheck of abscess following incision and drainage Z09 [facility] IN [address] [place] [address] 97096 -6445 Dec, Abscess of leg, right L02.415 [place] [id number] [place] [address] 11662- 8177 08 Dec, 2015 Cellulitis of unspecified part of limb L03.119 and Cutaneous abscess of limb, unspecified L02.419 [place] [address] [place] [address] 22761- 9959 Dec, [place] [address] [place] [address] 10145- 0644 Dec, [facility] [address] [place] [address] 84906 -7106 Aug, [facility] [id number] [place] [address] 22334- 3671 Aug, [facility] [id number] [place] [address] 65313 -0512 04 Jul, 2015 Pain in unspecified wrist M25.539 and Back pain, thoracic M54.6 [facility] [id number] [place] [address] 78239 -7244 13 Jun, 2015 Strain of right wrist, initial encounter S66.911A [place] [address] 50246- 1288 Jun, Chronic pancreatitis, unspecified pancreatitis type K86.1 ; Hirsuties L68.0 ; Morbid (severe) obesity due to excess calories E66.01 ; Chronic pancreatitis K86.1 and Asthma J45.909 [place] [id number] [place] [address] 60768- 2413 May, [place] [id number] [place] [address] 02175- 8510 May, Hyperlipidemia, mixed E78.2 and Muscle spasm of back M62.830 [place] [id number] [place] [address] 28822- 5936 Apr, [place] [id number] [place] [address] 34884- 2688 Apr, Torticollis M43.6 [facility] [id number] [place] [address] 49559- 6368 Apr, Right-sided thoracic back pain M54.6 [facility] [id number] [place] [address] 90857- 8072 Mar, Rash R21 [place] [id number] [place] [address] 63748- 8103 Mar, [place] [address], [place] [address]- 5261 Jan, [facility] [id number] [place] [address] 860565- 1427 Dec, [facility] [id number] 1602 Dec, Urinary frequency 788.41 and Nocturia more than twice per night 788.43 [facility] [id number] [place] [address] 25610- 1947 Nov, [facility] [id number] [place] [address] 776184- 7978 Nov, [facility] [id number] [place] [address] 08680- 9259 Nov, Abdominal pain 789.00 [facility] [id number] [place] [address] 77425- 7873 October, TDAP DX V06.1 [facility] [id number] [place] [address] 52573- 4956 October, [facility] [id number] [place] [address] 574113- 1857 October, Disturbance of skin sensation 782.0 ; Wrist pain, right 719.43 ; Hyperlipidemia 272.4 and Skin lesion of face 709.9 [facility] [address], [place] [address]- 4664 Sep, [facility] [address], [place] [address]- 6193 Sep, [facility] [id number] [place] [address] 582211- 8308 Aug, [facility] [address], [place] [address]- 1803 Aug, [facility] [id number] [place] [address] 54507833- 9440 23 Aug, 2014 [facility] [place] [facility] [address] [id number] [place] [address]- 2332 23 Aug, 2014 [facility] [place] [facility] [address] [id number] [place] [address]- 4660 16 Aug, 2014 [facility] [place] [facility] [address] [id number] [place] [address]- 2041 16 Aug, 2014 [facility] [place] [facility] [address] [id number] [place] [address]- 8849 14 Aug, 2014 [facility] [place] [facility] [address] [id number] [place] [address]- 1689 14 Aug, 2014 [facility] [place] [facility] [address] [id number] [place] [address]- 9215 Aug, [facility] [place] [facility] [address] [id number] [place] [address]- 0318 Aug, [facility] [place] [facility] [address] [id number] [place] [address]- 7121 04 Aug, 2014 [facility] [place] [facility] [address] [id number] [place] [address]- 8191 Aug, [facility] [place] [facility] [address] [id number] [place] [address]- 0653 Aug, [facility] [place] [facility] [address] [id number] [place] [address]- 2199 Aug, [facility] [place] [facility] [address] [id number] [address]- 6034 Jul, 2014 [facility] [place] [facility] [address] [id number] [place] [address]- 9823 Jul, 2014 [facility] [place] [facility] [address] [id number] [place] [address]- 3681 Jul, 2014 [facility] [place] [facility] [address] [id number] [place] [address]- 6984 Jul, [facility] [place] [facility] [address] [id number] [place] [address]- 3743 Jul, [facility] [address] [id number] [place] [address]- 3714 Jul, [facility] [address] [id number] [place] [address]- 4090 Jun, [facility] [address] [id number] [place] [address]- 0105 Jun, [facility] [address] [id number] [place] [address]- 9751 Jun, [facility] [address] [id number] [place] [address]- 6000 Jun, [facility] [address] [id number] [place] [address]- 4650 Jun, [facility] [address] [id number] [place] [address]- 5043 Jun, [facility] [address] [id number] [place] [address]- 1948 Jun, [facility] [address] [id number] [place] [address]- 5467 Jun, [facility] [address] [id number] [place] [address]- 2321 May, [facility] [place] [facility] [address] [id number] [place] [address]- 5590 May, [facility] [address] [id number] [place] [address]- 9818 18 May, 2014 [facility] [place] [facility] [address] [id number] [place] [address]- 5476 18 May, 2014 [facility] [place] [facility] [address] [id number] [place] [address]- 1757 15 May, 2014 [facility] [place] [facility] [address] [id number] [place] 9317 May, [facility] [place] [facility] [address] [id number] [place] [address]- 4312 May, [facility] [place] [facility] [address] [id number] [place] [address]- 8909 May, [facility] [place] [facility] [address] [id number] [place] [address]- 4842 May, [facility] [place] [facility] [address] [id number] [place] [address]- 3348 May, [facility] [place] [facility] [address] [id number] [place] [address]- 3324 May, [facility] [place] [facility] [address] [id number] [place] [address] May, [facility] [place] [facility] [address] [id number] [place] [address] Apr, [facility] [place] [facility] [address] [id number] [place] [address] Apr, [facility] [place] [facility] [address] [id number] [place] [address] Apr, [facility] [place] [facility] [address] [id number] [place] [address] Apr, [facility] [place] [facility] [address] [id number] [place] [address] Apr, [facility] [place] [facility] [address] [id number] [place] [address] Apr, [facility] [place] [facility] [address] [id number] [place] [address] Apr, [facility] [place] [facility] [address] [id number] [place] [address] Apr, [facility] [place] [facility] [address] [id number] [place] [address] Apr, [facility] [place] [facility] [address] [id number] [place] [address] Apr, [facility] [place] [facility] [address] [id number] [place] [address] Apr, [facility] [place] [facility] [address] [id number] [place] [address] Apr, [facility] [place] [facility] [address] [id number] [place] [address] Mar, [facility] [place] [facility] [address] [id number] [place] [address] Mar, [facility] [place] [facility] [address] [id number] [place] [address] Mar, [facility] [place] [facility] [address] [id number] [place] [address] Mar, [facility] [place] [facility] [address] [id number] [place] [address] 10 Feb, 2014 [facility] [place] [facility] [address] [id number] [place] [address] 10 Feb, 2013 [facility] [place] [facility] [address] [id number] [place] [address] 05 Feb, 2013 [facility] [place] [facility] [address] [id number] [place] [address] 05 Feb, 2013 [facility] [place] [facility] [address] [id number] [place] [address] Feb, 2013 [facility] [place] [facility] [address] [id number] [place] [address] Feb, 2013 [facility] [place] [facility] [address] [id number] [place] [address] Jan, [facility] [place] [facility] [address] [id number] [place] [address] Jan, [facility] [place] [facility] [address] [id number] [place] [address] Jan, [facility] [place] [facility] [address] [id number] [facility] [place] [address] Jan, [facility] [place] [facility] [address] [id number] [facility] [place] [address] Jan, [facility] [place] [facility] [address] [id number] [place] [address] Jan, [facility] [place] [facility] [address] [id number] [place] [address] Jan, [facility] [place] [facility] [address] [id number] [place] [address] Jan, [facility] [place] [facility] [address] [id number] [place] [address] Jan, [facility] [place] [facility] [address] [id number] [place] [address] Jan, [facility] [place] [facility] [address] [id number] [place] [address] Jan, [facility] [place] [facility] [address] [id number] [place] [address] 134[address] Jan, [facility] [place] [facility] [address] [id number] [place] [address] 3698 Jan, [facility] [place] [facility] [address] [id number] [place] [address] 7537 Jan, [facility] [place] [facility] [address] [id number] [place] [address] 4064 Dec, [facility] [place] [facility] [address] [id number] [place] [address] 8467 Dec, [facility] [place] [facility] [address] [id number] [place] [address] 8041 Dec, [facility] [place] [facility] [address] [id number] [place] [address] Dec, [facility] [place] [facility] [address] [id number] [place] [address] 6[address] Nov, [facility] [place] [facility] [address] [id number] [place] [address]- 1626 Nov, [facility] [place] [facility] [address] [id number] [place] [address]- 2778 Nov, [facility] [place] [facility] [address] [id number] [place] [address]- 4225 Nov, [facility] [place] [facility] [address] [id number] [place] [address]- 3595 Nov, [facility] [place] [facility] [address] [id number] [place] [address]- 0897 October, [facility] [place] [facility] [address] [id number] [place] [address] 8943 October, [facility] [place] [facility] [address] [id number] [place] [address]- 4580 October, [facility] [place] [facility] [address] [id number] [place] [address]- 0065 October, [facility] [place] [facility] [address] [id number] [place] [address]- 6743 October, [facility] [place] [facility] [address] [id number] [place] [address]- 2053 October, [facility] [place] [facility] [address] [id number] [place] [address]- 0670 October, [facility] [place] [facility] [address] [id number] [place] [address]- 5287 October, [facility] [place] [facility] [address] [id number] [place] [address]- 8875 October, [facility] [place] [facility] [address] [id number] [place] [address]- 3581 October, [facility] [place] [facility] [address] [id number] [place] [address]- 0265 October, [facility] [place] [facility] [address] [id number] [place] [address]- 9901 October, [facility] [place] [facility] [address] [id number] [place] [address]- 9877 October, [facility] [place] [facility] [address] [id number] [place] [address]- 8527 October, [facility] [place] [facility] [address] [id number] [place] [address]- 1705 Sep, [facility] [place] [facility] [address] [id number] [place] [address]- 1034 Sep, [facility] [place] [facility] [address] [id number] [place] [address]- 5076 Sep, [facility] [place] [facility] [address] [id number] [place] [address]- 8390 Sep, [facility] [place] [facility] [address] [id number] [place] [address]- 3778 Sep, [facility] [place] [facility] [address] [id number] [place] [address]- 2210 Sep, [facility] [place] [facility] [address] [id number] [place] [address]- 5282 Sep, [facility] [place] [facility] [address] [id number] [place] [address]- 6523 Sep, [facility] [place] [facility] [address] [id number] [place] [address]- 4711 Sep, [facility] [place] [facility] [address] [id number] [place] [address]- 0789 Sep, [facility] [place] [facility] [address] [id number] [place] [address]- 1705 Sep, [facility] [place] [facility] [address] [id number] [place] [address]- 2945 Sep, [facility] [place] [facility] [address] [id number] [place] [address]- 7554 Sep, [facility] [place] [facility] [address] [id number] [place] [address]- 1280 Sep, [facility] [place] [facility] [address] [id number] [place] [address]- 8695 Sep, [facility] [place] [facility] [address] [id number] [place] [address]- 1987 Aug, [facility] [place] [facility] [address] [id number] [place] [address]- 9047 Aug, [facility] [place] [facility] [address] [id number] [place] [address]- 7157 Aug, [facility] [place] [facility] [address] [id number] [place] [address]- 6566 Aug, [facility] [place] [facility] [address] [id number] [place] [address]- 0855 Jul, [facility] [place] [facility] [address] [id number] [place] [address]- 7572 Jul, [facility] [place] [facility] [address] [id number] [place] [address]- 1259 Jul, [facility] [place] [facility] [address] [id number] [place] [address]- 7448 Jul, [facility] [place] [facility] [address] [id number] [place] [address]- 0630 Jun, [facility] [place] [facility] [address] [id number] [place] [address]- 7661 Jun, [facility] [place] [facility] [address] [id number] [place] [address]- 3797 Jun, [facility] [place] [facility] [address] [id number] [place] [address]- 3177 Jun, [facility] [place] [facility] [address] [id number] [place] [address]- 6684 Jun, [facility] [place] [facility] [address] [id number] [place] [address]- 9754 10 Jun, 2013 [facility] [address] [id number] [place] [address] Jun, [facility] [place] [facility] [address] [id number] [place] [address]- 0297 08 Jun, 2013 [facility] [address] [id number] [place] [address]- 5290 20 May, 2013 [facility] [place] [facility] [address] [id number] [place] [address]- 3944 20 May, 2013 [facility] [address] [id number] [place] [address]- 5771 18 May, 2013 [facility] [place] [facility] [address] [id number] [place] [address]- 4996 18 May, 2013 [facility] [address] [id number] [place] [address]- 5977 17 May, 2013 [facility] [address] [facility] [id number] [place] [id number] 17 May, 2013 [facility] [place] [facility] [address] [id number] [place] [address]- 8389 17 May, 2013 [facility] [place] [facility] [address] [id number] [place] [address]- 0374 17 May, 2013 [facility] [place] [facility] [address] [id number] [place] [address]- 1171 16 May, 2013 [facility] [place] [facility] [address] [id number] [place] [address]- 5741 16 May, 2013 [facility] [place] [facility] [address] [id number] [place] [address]- 9576 14 May, 2013 [facility] [place] [facility] [address] [id number] [place] [address]- 0096 14 May, 2013 [facility] [place] [facility] [address] [id number] [place] [address]- 6547 13 May, 2013 [facility] [place] [facility] [address] [id number] [place] [address]- 9002 13 May, 2013 [facility] [address] [id number] [place] [address]- 9043 May, [facility] [place] [facility] [address] [id number] [place] [address]- 7099 May, [facility] [address] [id number] [place] [address]- 9915 May, [facility] [place] [facility] [address] [id number] [place] [address]- 9592 May, [facility] [address] [id number] [place] [address]- 1219 Apr, [facility] [place] [facility] [address] [id number] [place] [address]- 0863 Apr, [facility] [place] [facility] [address] [id number] [place] [address]- 4380 Apr, [facility] [address] [id number] [place] [address]- 5053 Apr, [facility] [place] [facility] [address] [id number] [place] [address]- 6607 Aug, [facility] [address] [id number] [place] [address]- 5514 Aug, [facility] [place] [facility] [address] [id number] [place] [address]- 7555 Aug, [facility] [place] [facility] [address] [id number] [place] [address]- 2408 05 Aug, 2012 [facility] [place] [facility] [address] [id number] [place] [address]- 9923 04 Jul, 2012 [facility] [place] [facility] [address] [id number] [place] [address]- 1755 Jun, [facility] [place] [facility] [address] [id number] [place] [address]- 0414 Jun, [facility] [address] [id number] [place] [address]- 7064 Jun, [facility] [place] [facility] [address] [id number] [place] [address]- 2469 Jun, [facility] [place] [facility] [address] [facility] [id number] [place] [address]29 May, [facility] [place] [facility] [address] [id number] [place] [address]- 2097 May, [facility] [place] [facility] [address] [id number] [place] [address]- 6644 May, [facility] [place] [facility] [address] [id number] [place] [address]- 1698 May, [facility] [place] [facility] [address] [id number] [place] [address]- 3992 May, [facility] [place] [facility] [address] [id number] [place] [address]- 1144 May, [facility] [place] [facility] [address] [id number] [place] [address]- 7903 May, [facility] [place] [facility] [address] [id number] [place] [address]- 0016 Apr, [facility] [place] [facility] [address] [id number] [address]- 1845 Apr, [facility] [place] [facility] [address] [id number], [place] [address]- 9889 Apr, [facility] [place] [facility] [address] [id number] [place] [address]- 0753 Apr, [facility] [place] [facility] [address] [id number] [place] [address]- 3825 Apr, [facility] [place] [facility] [address] [facility] [id number] [place] [address]- 5320 Apr, [facility] [place] [facility] [address] [id number] [place] [address]- 3100 Apr, [facility] [place] [facility] [address] [id number] [place] [address]- 9988 Mar, 2011 [facility] [place] [facility] [address] [id number] [place] [address] Mar, [facility] [place] [facility] [address] [id number] [place] [address]- 1914 Mar, [facility] [place] [facility] [address] [id number] [place] [address]- 2030 Mar, [facility] [place] [facility] [address] [id number] [place] [address]95 Mar, [facility] [place] [facility] [address] [id number] [place] [address]- 4269 Mar, [facility] [place] [facility] [address] [id number] [place] [address]- 1488 Mar, [facility] [place] [facility] [address] [id number] [place] [address]- 2219 Mar, [facility] [place] [facility] [address] [id number] [place] [address]- 1709 Mar, [facility] [place] [facility] [address] [facility] [id number] [place] [address]- 2866 15 Mar, 2012 [facility] [place] [facility] [address] [id number] [place] [address]- 4374 Mar, [facility] [place] [facility] [address] [id number], [place] [address]- 3808 Mar, [facility] [place] [facility] [address] [id number] [place] [address]- 8508 06 Feb, 2012 [facility] [place] [facility] [address] [id number] [place] [address]- 6935 Jan, [facility] [place] [facility] [address] [id number], [place] [address]- 8978 Jan, [facility] [place] [facility] [address] [id number] [place] [address]- 0601 Jan, [facility] [place] [facility] [address] [id number] [place] [address]- 6638 Jan, [facility] [place] [facility] [address] [id number] [place] [address]- 4511 Jan, [facility] [place] [facility] [address] [id number] [place] [address]- 1099 Dec, [facility] [address] [id number] [place] [address]- 0321 Dec, [facility] [place] [facility] [address] [id number] [place] [address]- 0096 Nov, [facility] [address] [id number] [place] [address]- 7749 Nov, [facility] [address] [id number] [place] [address]- 1871 Nov, [facility] [place] [facility] [address] [id number] [place] [address]- 6415 October, [facility] [address] [id number] [place] [address]- 3970 October, [facility] [place] [facility] [address] [id number] [place] [address]- 1686 October, [facility] [place] [facility] [address] [id number] [place] [address]- 2409 October, [facility] [place] [facility] [address] [id number] [place] [address]- 0226 October, [facility] [place] [facility] [address] [id number] [place] [address]- 4314 October, [facility] [place] [facility] [address] [id number] [place] [address]- 2153 October, [facility] [place] [facility] [address] [id number] [place] [address]- 5101 26 Sep, 2011 [facility] [place] [facility] [address] [id number] [place] [address]- 4059 26 Sep, 2011 [facility] [place] [facility] [address] [id number] [place] [address]- 3385 26 Sep, 2011 [facility] [place] [facility] [address] [id number] [place] [address]- 5144 25 Sep, 2011 [facility] [place] [facility] [address] [id number] [place] [address]- 6388 24 Sep, 2011 [facility] [place] [facility] [address] [id number] [place] [address]- 0959 19 Sep, 2011 [facility] [place] [facility] [address] [id number] [place] [address]- 0674 17 Sep, 2011 [facility] [place] [facility] [address] [id number] [place] [address]- 7418 16 Sep, 2011 [facility] [place] [facility] [address] [id number] [place] [address]- 7561 16 Sep, 2011 [facility] [place] [facility] [address] [id number] [place] [address]- 7066 14 Sep, 2011 [facility] [place] [facility] [address] [id number] [place] [address]- 1119 13 Sep, 2011 [facility] [place] [facility] [address] [id number] [place] [address]- 4897 10 Sep, 2011 [facility] [place] [facility] [address] [id number] [place] [address]- 8405 09 Sep, 2011 [facility] [place] [facility] [address] [id number] [place] [address]- 7281 27 Aug, 2011 [facility] [place] [facility] [address] [id number] [place] [address]- 6634 12 Aug, 2011 [facility] [place] [facility] [address] [id number] [place] [address]- 5006 08 Aug, 2011 [facility] [place] [facility] [address] [id number] [place] [address]- 4025 Aug, [facility] [place] [facility] [address] [id number] [place] [address]- 3016 28 Jul, 2011 [facility] [place] [facility] [address] [id number] [place] [address]- 1906 22 Jul, 2011 [facility] [place] [facility] [address] [id number] [place] [address]- 6926 16 Jul, 2011 [facility] [place] [facility] [address] [id number] [place] [address] 2546 15 Jul, 2011 [facility] [place] [facility] [address] [id number] [place] [address]- 9546 14 Jul, 2011 [facility] [place] [facility] [address] [id number] [place] [address]- 5460 10 Jul, 2011 [facility] [place] [facility] [address] [id number] [place] [address]- 6911 Jun, [facility] [place] [facility] [address] [id number] [place] [address]- 6931 Jun, [facility] [place] [facility] [address] [id number] [place] [address]- 6582 Jun, [facility] [place] [facility] [address] [id number] [place] [address]- 9237 Jun, [facility] [place] [facility] [address] [id number] [place] [address]- 3179 Jun, [facility] [place] [facility] [address] [id number] [place] [address]- 0244 May, [facility] [place] [facility] [address] [id number] [place] [address] 2546 May, [facility] [place] [facility] [address] [id number] [place] [address]- 8926 May, [facility] [place] [facility] [address] [id number] [place] [address]- 3249 14 May, 2011 [facility] [place] [facility] [address] [id number] [place] [address]- 5213 12 May, 2011 [facility] [place] [facility] [address] [id number] [place] [address]- 4707 May, [facility] [place] [facility] [address] [id number] [place] [address]- 1746 May, [facility] [place] [facility] [address] [id number] [place] [address]- 4466 Apr, [facility] [place] [facility] [address] [id number] [place] [address]- 0499 Apr, [facility] [place] [facility] [address] [id number] [place] [address]- 5526 Apr, [facility] [place] [facility] [address] [id number] [place] [address]- 4283 Apr, [facility] [place] [facility] [address] [id number] [place] [address]- 2746 Apr, [facility] [place] [facility] [address] [id number] [place] [address]- 5344 Apr, [facility] [place] [facility] [address] [id number] [place] [address]- 1429 Mar, [facility] [place] [facility] [address] [id number], [place] [address]- 4783 Mar, [facility] [place] [facility] [address] [id number], [place] [address]- 6648 Mar, [facility] [place] [facility] [address] [id number] [place] [address] Mar, [facility] [place] [facility] [address] [id number], [place] [address] Jan, [facility] [place] [facility] [address] [id number] [place] [address] Dec, [facility] [place] [facility] [address] [id number] [place] [address] 13 Dec, 2010 [facility] [address] [id number] [place] [address]286 11 Oct, 2010 [facility] [place] [facility] [address] [id number] [place] [address] 2546 20 Sep, 2010 [facility] [address] [id number] [place] [address] 14 Sep, 2010 [facility] [address] [id number] [place] [address] 2546 17 Jul, 2010 [facility] [address] [id number] [place] [address], [place] [address] 16 Jul, 2010 [facility] [address] [id number] [place] [address] 31 May, 2010 [facility] [address] [id number] [place] [address]41 May, [facility] [address] [id number] [place] [address] 08 May, 2010 [facility] [address] [id number] [place] [address] May, [facility] [address] [id number] [place] [address] Apr, [facility] [place] [facility] [address] [id number] [place] [address] 2541 Apr, [facility] [address] [id number] [place] [address] 2542 Apr, [facility] [place] [facility] [address] [id number] [place] [address] Apr, [facility] [place] [facility] [address] [id number] [place] [address] 2540 Apr, [facility] [address] [id number] [place] [address] Mar, [facility] [place] [facility] [address] [id number] [place] [address] 14 Mar, 2010 [facility] [place] [facility] [address] [id number] [place] [address] 13 Mar, 2010 [facility] [place] [facility] [address] [id number] [place] [address]- [address] 12 Mar, 2010 [facility] [place] [facility] [address] [id number] [place] [address] 20 Jan, 2010 [facility] [place] [facility] [address] [id number] [place] [address]- [address] 15 Dec, 2009 [facility] [place] [facility] [address] [id number], [place] [address] 10 Sep, 2009 [facility] [place] [facility] [address] [facility] [id number] [place] [address] 08 May, 2009 [facility] [place] [facility] [address] [id number], [place] [address] 06 May, 2009 [facility] [place] [facility] [address] [id number], [place] [address] May, [facility] [place] [facility] [address] [facility] [id number], [place] [address] 17 Apr, 2009 [facility] [place] [facility] [address] [id number], [place] [address] 17 Apr, 2009 [facility] [place] [facility] [address] [id number], [place] [address] 10 Apr, 2009 [facility] [place] [facility] [address] [id number], [place] [address]60 10 Apr, 2009 [facility] [place] [facility] [address] [id number], [place] [address]84 09 Apr, 2009 [facility] [place] [facility] [address] [facility] [id number], [place] [address] 15 Mar, 2009 [facility] [place] [facility] [address] [id number], [place] [address] Mar, [facility] [address] [facility] [id number] [place] [address] Jul, IMMUNIZATIONS No Known Immunizations SOCIAL HISTORY Never Assessed REASON FOR VISIT FYI PLAN OF CARE VITAL SIGNS MEDICATIONS Unknown [...] [facility]15 [facility]- Abd pain 03/07/2017 Hospitalization History [facility]- Abd pain 03/14/2017 Hospitalization History [facility]- No bowel movement, rash 04/13/2017 Hospitalization History [facility]- Abd pain r/t kidney surgery on 04/17/2017 Hospitalization History [facility]- Abd pain r/t kidney surgery on 04/18/2017 Hospitalization History [facility]- Lower abd pain 04/30/2017 Hospitalization History [facility]- Cannot urinate 05/30/2017 Hospitalization History [facility]- Pancreatitis Sx 06/29/2017 [facility]ization History [facility]- Stomach pain 07/22/2017 [facility] History [facility]- Left side pain 08/12/2017 Hospitalization History [facility]- Incision site infection 08/30/2017 Hospitalization History [facility]- Post Op Seroma/Hematoma Left Abdomen. Discharged 09/04/17- Dr Daniel 09/02/2017 Hospitalization History [facility]- Right shoulder and back pain 2017 Hospitalization History [facility]- Shoulder/Back pain 11/11/2017 Hospitalization History [facility]- Right shoulder blade pain 12/04/2017 Hospitalization History [facility]- C-Diff 12/13/2017 Hospitalization History C diff et MRSA 12/27/2017
--- OUTSIDE RECORDS SUMMARY | 2018-02-24 14:25 | XMS REPORT ---
Author Author SAI CARMEN [facility] Address [address] [place] [address] Care Team Providers Care Pocket Closer Name Role Phone CAREMN GIBBS Unavailable PROBLEMS Type Condition ICD9-CM Code HHO97-XS Code Onset Dates Condition Status SNOMED Code Problem Polydipsia R63.1 Active 90812000 Problem Trichotillomania F63.3 Active 12536895 Problem Atelectasis J98.11 Active 23653737 Problem Intestinal malabsorption, unspecified K90.9 Active 29908464 Problem Chronic fatigue R53.82 Active 01670837 Problem Generalized social phobia F40.11 Active 76027850 Problem Restless leg syndrome G25.81 Active 42349455 Problem Moderate episode of recurrent major depressive disorder F33.1 Active 804808144 Problem Chronic post-traumatic stress disorder (PTSD) F43.12 Active 584358609 Problem History of renal cell carcinoma Z85.528 Active 564980455 Problem Chronic tension-type headache, intractable G44.221 Active 939047900 Problem Nodule of left lung R91.1 Active 689738369 Problem Hirsuties L68.0 Active 821331469 Problem FH: polycystic ovary Z84.2 Active 255661474 Problem Morbid (severe) obesity due to excess calories E66.01 Active 666692590 Problem Chronic pancreatitis K86.1 Active 945700372 Problem Hyperlipidemia, mixed E78.2 Active 252275959 Problem Asthma J45.909 Active 100288932 ALLERGIES No Information ENCOUNTERS Encounter Location Date Diagnosis [facility] [address] [facility] [id number] [address] Mar, [facility] [address] [id number] [address] 7230 Feb, [facility] [address] [id number] [address] 7[address] Jan, Acute pain of right knee M25.561 ; Right upper quadrant abdominal pain R10.11 and BMI 45.0-49.9, adult Z68.42 [facility] [id number] [place] [address] 12891- 1548 Jan, [facility] [id number] [place] [address] 79826- 6414 Jan, [facility] [id number] [place] [address] 62297- 8771 Dec, [facility] [id number] [place] [address] 31042- 3926 Dec, Intestinal malabsorption, unspecified K90.9 and Diarrhea, unspecified R19.7 [place] [id number] [place] [address] 04940- 3428 Dec, [facility] [id number] [place] [address] 46681- 5589 Dec, Strep throat J02.0 ; Intestinal malabsorption, unspecified K90.9 ; Diarrhea, unspecified R19.7 ; Postoperative seroma involving digestive system after non-digestive system procedure K91.873 ; Hyperlipidemia, mixed E78.2 and BMI 45.0-49.9, adult Z68.42 [facility] [id number] [place] [address] 47071- 7336 Dec, [facility] [id number] [place] [address] 85757- 1237 Dec, Nausea R11.0 [facility] [id number] [place] [address] 59291- 5379 Dec, [facility] [id number] [place] [address] 80980 -0353 Dec, Sore throat J02.9 ; Strep throat J02.0 and BMI 45.0-49.9, adult Z68.42 [facility] [id number] [place] [address] 50350- 6735 Dec, [facility] [address] [place] [address] 2294 Dec, [facility] [address], [place] [address] 9564 Dec, [facility] [address] [place] [address]- 1446 Dec, [facility] [address], [place] [address]- 1448 Dec, [facility] [address] [place] [address]- 3821 Dec, [facility] [address], [place] [address]- 7745 Dec, [facility] [address], [place] [address]- 9796 Dec, [facility] [address], [place] [address] 1492 Dec, Clostridium difficile colitis A04.72 ; Intractable vomiting with nausea, unspecified vomiting type R11.2 and BMI 45.0-49.9, adult Z68.42 [facility] [address], [place] [address] 1496 Dec, [facility] [address], [place] [address]- 3467 Nov, [facility] [address], [place] [address]- 3544 Nov, [facility] [address], [place] [address]- 5814 Nov, [facility] [address], [place] [address]- 3497 Nov, [facility] [address], [place] [address] Nov, [place] [address], [place] [address]- 1068 Nov, Hyperlipidemia, mixed E78.2 [facility] [id number] [place] [address] 00473 -2051 Nov, Acute suppurative otitis media of right ear without spontaneous rupture of tympanic membrane, recurrence not specified H66.001 and BMI 45.0-49.9, adult Z68.42 [place] [id number] [place] [address] 86681- 7716 Nov, Hyperlipidemia, mixed E78.2 [place] [id number] [place] [address] 78982- 5746 Nov, [place] [id number] [place] [address] 47672- 5757 Nov, [address] [address]- 0421 Nov, Nodule of left lung R91.1 [id number] [place] [address] 19432- 6141 Nov, Medicare annual wellness visit, initial Z00.00 [...] adult Z68.42 and Encounter for immunization Z23 [id number] [place] [address] 75156- 4659 October, [id number] [place] [address] 22023- 4745 October, Nodule of left lung R91.1 [id number] [place] [address] 96608- 2698 October, Nodule of left lung R91.1 [place] [id number] [place] [address] 61002- 2740 October, Recurrent major depressive disorder, in partial remission F33.41 ; Restless leg syndrome G25.81 ; Generalized social phobia F40.11 ; Chronic post-traumatic stress disorder (PTSD) F43.12 ; BMI 45.0-49.9, adult Z68.42 and Trichotillomania F63.3 [place] [id number] [place] [address] 81625- 8337 October, [place] [id number] [place] [address] 49979- 8300 Sep, Chronic fatigue R53.82 and BMI 45.0-49.9, adult Z68.42 [place] [id number] [place] [address] 46336- 9082 Aug, [place] [id number] [place] [address] 16759- 6803 Jul, Restless leg syndrome G25.81 and B12 deficiency E53.8 [address] [id number] [place] [address] 86553- 5876 Jul, [place] [id number] [place] [address] 88293- 4847 Jul, [place] [id number] [place] [address] 00624- 0721 Jun, [place] [id number] [place] [address] 34111- 9311 Jun, Fatigue, unspecified type R53.83 ; History of renal cell carcinoma Z85.528 ; Chronic pancreatitis K86.1 ; Restless leg syndrome G25.81 ; Dark urine R82.99 and BMI 45.0-49.9, adult Z68.42 [place] [id number] [place] [address] 92018- 7463 Jun, [facility] [address] [id number] [address]- 2928 Jun, [facility] [address], [place] [address]- 0264 Jun, [facility] [address] [id number], [place] [address]- 5369 Jun, [facility] [address] 0171 May, Chronic post-traumatic stress disorder (PTSD) F43.12 ; Moderate episode of recurrent major depressive disorder F33.1 ; Trichotillomania F63.3 and Generalized social phobia F40.11 [facility] [address], [place] [address]- 2338 May, [facility] [address], [place] [address]- 7835 May, Chronic post-traumatic stress disorder (PTSD) F43.12 ; Moderate episode of recurrent major depressive disorder F33.1 ; Trichotillomania F63.3 and Generalized social phobia F40.11 [facility] [address] [id number], [place] [address]- 4523 May, Hyperlipidemia, mixed E78.2 ; Morbid (severe) obesity due to excess calories E66.01 ; Chronic post-traumatic stress disorder (PTSD) F43.12 ; Moderate episode of recurrent major depressive disorder F33.1 ; Trichotillomania F63.3 and Generalized social phobia F40.11 [facility] [id number], [place] [address]- 2778 Apr, [facility] [address], [place] [address]- 7614 Apr, Hyperlipidemia, mixed E78.2 ; Morbid (severe) obesity due to excess calories E66.01 ; Chronic post-traumatic stress disorder (PTSD) F43.12 ; Moderate episode of recurrent major depressive disorder F33.1 ; Trichotillomania F63.3 and Generalized social phobia F40.11 [facility] [id number] [place] [address] 55966- 8368 Apr, Trichotillomania F63.3 ; Generalized social phobia F40.11 ; Chronic post-traumatic stress disorder (PTSD) F43.12 and Moderate episode of recurrent major depressive disorder F33.1 [place] [id number] [place] [address] 46056- 0644 Apr, [facility] [id number] [place] [address] 89486- 8771 Apr, [place] [id number] [place] [address] 66701- 0413 Mar, Moderate episode of recurrent major depressive disorder F33.1 ; Trichotillomania F63.3 ; Chronic post-traumatic stress disorder (PTSD) F43.12 ; Generalized social phobia F40.11 and Restless leg syndrome G25.81 [place] [id number] [place] [address] 65038- 0906 Mar, [place] [address] 37068- 6893 Mar, [place] [id number] [place] [address] 53544- 3216 Feb, Left kidney mass N28.89 [place] [id number] [place] [address] 42795- 7169 Jan, [place] [id number] [place] [address] 89897- 7538 Dec, Polydipsia R63.1 ; Chronic pancreatitis K86.1 and Fatigue, unspecified type R53.83 [facility] [id number] [place] [address] 82355- 2700 Nov, [place] [id number] [place] [address] 74920- 5461 Nov, [place] [id number] [place] [address] 63889- 0384 Nov, Headache around the eyes R51 [facility] [id number] [place] [address] 98012- 5951 Nov, [facility] [id number] [place] [address] 46457- 2530 October, STD exposure Z20.2 [facility] [id number] [place] [address] 61930- 8085 October, STD exposure Z20.2 [facility] [id number] [place] [address] 464793- 1603 October, Chronic post-traumatic stress disorder (PTSD) F43.12 ; Generalized social phobia F40.11 ; Trichotillomania F63.3 and Restless leg syndrome G25.81 [place] [id number] [place] [address] 95285- 9045 October, [facility] [id number] [place] [address] 60201- 7149 Sep, [facility] [id number] [place] [address] 08037- 1125 Aug, [facility] [id number] [place] [address] 19778- 9134 Aug, [place] [id number] [place] [address] 36052- 7818 Aug, Neck mass R22.1 [place] [id number] [place] [address] 94468- 5436 Aug, Atelectasis J98.11 [place] [id number] [place] [address] 46954- 1197 28 Jul, 2016 Hyperlipidemia, mixed E78.2 ; Atypical pneumonia J18.9 and Neck mass R22.1 [place] [id number] [place] [address] 30108- 0840 15 Jul, 2016 Hemoptysis R04.[address] [place] [address] 88307- 8521 08 Jul, 2016 Acute non-recurrent pansinusitis J01.40 ; Hemoptysis R04.2 ; Polydipsia R63.1 and Malaise R53.81 [facility] [id number] [place] [address] 43326 -4245 May, Other viral agents as the cause of diseases classified elsewhere B97.89 and Acute upper respiratory infection, unspecified J06.9 [facility] [address] [id number] [place] [address] 20174 -5166 Mar, Nausea R11.0 [facility] [id number] [place] [address] 13270 -3058 Dec, Hives L50.9 [place] [id number] [place] [address] 28322- 2554 Dec, [facility] [place] [id number] [place] [address] 47792 -1687 Dec, Cutaneous abscess of limb, unspecified L02.419 ; Cellulitis of unspecified part of limb L03.119 ; Encounter for incision and drainage procedure Z01.89 and Encounter for recheck of abscess following incision and drainage Z09 [facility] [address] [place] [address] 38194 -9574 Dec, Abscess of leg, right L02.415 [place] [id number] [place] [address] 95125- 2304 08 Dec, 2015 Cellulitis of unspecified part of limb L03.119 and Cutaneous abscess of limb, unspecified L02.419 [place] [address] [place] [address] 62562- 9271 Dec, [place] [address] [place] [address] 38912- 6666 Dec, [facility] [id number] [place] [address] 49012 -2382 Aug, [facility] [id number] [place] [address] 86843- 6035 Aug, [facility] [id number] [place] [address] 72416 -2847 04 Jul, 2015 Pain in unspecified wrist M25.539 and Back pain, thoracic M54.6 [facility] [id number] [place] [address] 35166 -6211 13 Jun, 2015 Strain of right wrist, initial encounter S66.911A [place] [address] 35672- 4253 Jun, Chronic pancreatitis, unspecified pancreatitis type K86.1 ; Hirsuties L68.0 ; Morbid (severe) obesity due to excess calories E66.01 ; Chronic pancreatitis K86.1 and Asthma J45.909 [place] [id number] [place] [address] 69645- 8686 May, [place] [id number] [place] [address] 48210- 5699 May, Hyperlipidemia, mixed E78.2 and Muscle spasm of back M62.830 [place] [id number] [place] [address] 52644- 0260 Apr, [place] [id number] [place] [address] 29861- 8805 Apr, Torticollis M43.6 [place] [id number] [place] [address] 14306- 6984 Apr, Right-sided thoracic back pain M54.6 [place] [id number] [place] [address] 88767- 3197 Mar, Rash R21 [place] [id number] [place] [address] 09591- 2901 Mar, [place] [address] [address]- 7490 Jan, [facility] [id number] [place] [address] 446742- 5260 Dec, [facility] [id number] 6353 Dec, Urinary frequency 788.41 and Nocturia more than twice per night 788.43 [facility] [id number] [place] [address] 80740- 0167 Nov, [facility] [id number] [place] [address] 605276- 5213 Nov, [facility] [id number] [place] [address] 88953- 1347 Nov, Abdominal pain 789.00 [facility] [id number] [place] [address] 06814- 4812 October, TDAP DX V06.1 [facility] [id number] [place] [address] 60510- 2665 October, [facility] [id number] [place] [address] 854828- 6233 October, Disturbance of skin sensation 782.0 ; Wrist pain, right 719.43 ; Hyperlipidemia 272.4 and Skin lesion of face 709.9 [facility] [address], [place] [address]- 9644 Sep, [facility] [address], [place] [address]- 0113 Sep, [facility] [id number] [place] [address] 174028- 8451 Aug, [facility] [address], [place] [address]- 5748 Aug, [facility] [id number] [place] [address] 00147110- 1748 23 Aug, 2014 [facility] [place] [facility] [address] [id number] [place] [address]- 8745 23 Aug, 2014 [facility] [place] [facility] [address] [id number] [place] [address]- 9209 16 Aug, 2014 [facility] [place] [facility] [address] [id number] [place] [address]- 1754 16 Aug, 2014 [facility] [place] [facility] [address] [id number] [place] [address]- 8241 14 Aug, 2014 [facility] [place] [facility] [address] [id number] [place] [address]- 2871 14 Aug, 2014 [facility] [place] [facility] [address] [id number] [place] [address]- 4028 Aug, [facility] [place] [facility] [address] [id number] [place] [address]- 1680 Aug, [facility] [place] [facility] [address] [id number] [place] [address]- 0067 04 Aug, 2014 [facility] [place] [facility] [address] [id number] [place] [address]- 7362 Aug, [facility] [place] [facility] [address] [id number] [place] [address]- 9322 Aug, [facility] [place] [facility] [address] [id number] [place] [address]- 8790 Aug, [facility] [place] [facility] [address] [id number] [address]- 2347 Jul, 2014 [facility] [place] [facility] [address] [id number] [place] [address]- 9066 Jul, 2014 [facility] [place] [facility] [address] [id number] [place] [address]- 8401 Jul, 2014 [facility] [place] [facility] [address] [id number] [place] [address]- 4126 Jul, [facility] [place] [facility] [address] [id number] [place] [address]- 9073 Jul, [facility] [address] [id number] [place] [address]- 6164 Jul, [facility] [address] [id number] [place] [address]- 8440 Jun, [facility] [address] [id number] [place] [address]- 4041 Jun, [facility] [address] [id number] [place] [address]- 1699 Jun, [facility] [address] [id number] [place] [address]- 9353 Jun, [facility] [address] [id number] [place] [address]- 8845 Jun, [facility] [address] [id number] [place] [address]- 0455 Jun, [facility] [address] [id number] [place] [address]- 8260 Jun, [facility] [address] [id number] [place] [address]- 1568 Jun, [facility] [address] [id number] [place] [address]- 4614 May, [facility] [place] [facility] [address] [id number] [place] [address]- 7703 May, [facility] [address] [id number] [place] [address]- 6603 18 May, 2014 [facility] [place] [facility] [address] [id number] [place] [address] 18 May, 2014 [facility] [place] [facility] [address] [id number] [place] [address] 15 May, 2014 [facility] [place] [facility] [address] [id number] [place] [id number] May, [facility] [place] [facility] [address] [id number] [place] [address] May, [facility] [place] [facility] [address] [id number] [place] [address] May, [facility] [place] [facility] [address] [id number] [place] [address] May, [facility] [place] [facility] [address] [id number] [place] [address] May, [facility] [place] [facility] [address] [id number] [place] [address] May, [facility] [place] [facility] [address] [id number] [place] [address] May, [facility] [place] [facility] [address] [id number] [place] [address] Apr, [facility] [place] [facility] [address] [id number] [place] [address]- [address] Apr, [facility] [place] [facility] [address] [id number] [place] [address] Apr, [facility] [place] [facility] [address] [id number] [place] [address] Apr, [facility] [place] [facility] [address] [id number] [place] [address] Apr, [facility] [place] [facility] [address] [id number] [place] [address]- [address] Apr, [facility] [place] [facility] [address] [id number] [place] [address] Apr, [facility] [place] [facility] [address] [id number] [place] [address] Apr, [facility] [place] [facility] [address] [id number] [place] [address]- [address] Apr, [facility] [place] [facility] [address] [id number] [place] [address]608 Apr, [facility] [place] [facility] [address] [id number] [place] [address]- [address] Apr, [facility] [place] [facility] [address] [id number] [place] [address]- [address] Apr, [facility] [place] [facility] [address] [id number] [place] [address] Mar, [facility] [place] [facility] [address] [id number] [place] [address]- [address] Mar, [facility] [place] [facility] [address] [id number] [place] [address] Mar, [facility] [place] [facility] [address] [id number] [place] [address]- [address] Mar, [facility] [place] [facility] [address] [id number] [place] [address] 10 Feb, 2014 [facility] [place] [facility] [address] [id number] [place] [address] 10 Feb, 2013 [facility] [place] [facility] [address] [id number] [place] [address] 05 Feb, 2013 [facility] [place] [facility] [address] [id number] [place] [address]- [address] 05 Feb, 2013 [facility] [place] [facility] [address] [id number] [place] [address] Feb, 2013 [facility] [place] [facility] [address] [id number] [place] [address] Feb, 2013 [facility] [place] [facility] [address] [id number] [place] [address] Jan, [facility] [place] [facility] [address] [id number] [place] [address] Jan, [facility] [place] [facility] [address] [id number] [place] [address] Jan, [facility] [place] [facility] [address] [id number] [facility] [address]- [address] Jan, [facility] [place] [facility] [address] [id number] [facility] [place] [address]- [address] Jan, [facility] [place] [facility] [address] [id number] [place] [address]- [address] Jan, [facility] [place] [facility] [address] [id number] [place] [address] Jan, [facility] [place] [facility] [address] [id number] [place] [address]- [address] Jan, [facility] [place] [facility] [address] [id number] [place] [address]- [address] Jan, [facility] [place] [facility] [address] [id number] [place] [address]- [address] Jan, [facility] [place] [facility] [address] [id number] [place] [address] Jan, [facility] [place] [facility] [address] [id number] [place] [address] Jan, [facility] [place] [facility] [address] [id number] [place] [address]- 45[address] Jan, [facility] [place] [facility] [address] [id number] [place] [address]- 4155 Jan, [facility] [place] [facility] [address] [id number] [place] [address]- 5122 Dec, [facility] [place] [facility] [address] [id number] [place] [address]- 1402 Dec, [facility] [place] [facility] [address] [id number] [place] [address]- 5194 Dec, [facility] [place] [facility] [address] [id number] [place] [address] Dec, [facility] [place] [facility] [address] [id number] [place] [address]- 4663 Nov, [facility] [place] [facility] [address] [id number] [place] [address]- 2341 Nov, [facility] [place] [facility] [address] [id number] [place] [address]- 1026 Nov, [facility] [place] [facility] [address] [id number] [place] [address]- 1758 Nov, [facility] [place] [facility] [address] [id number] [place] [address]- 9624 Nov, [facility] [place] [facility] [address] [id number] [place] [address]- 1633 October, [facility] [place] [facility] [address] [id number] [place] [address]- 3509 October, [facility] [place] [facility] [address] [id number] [place] [address]- 4505 October, [facility] [place] [facility] [address] [id number] [place] [address]- 5915 October, [facility] [place] [facility] [address] [id number] [place] [address]- 1806 October, [facility] [place] [facility] [address] [id number] [place] [address]- 4274 October, [facility] [place] [facility] [address] [id number] [place] [address]- 3345 October, [facility] [place] [facility] [address] [id number] [place] [address]- 4384 October, [facility] [place] [facility] [address] [id number] [place] [address]- 5774 October, [facility] [place] [facility] [address] [id number] [place] [address]- 5906 October, [facility] [place] [facility] [address] [id number] [place] [address]- 1216 October, [facility] [place] [facility] [address] [id number] [place] [address]- 2014 October, [facility] [place] [facility] [address] [id number] [place] [address]- 4760 October, [facility] [place] [facility] [address] [id number] [place] [address]- 9210 October, [facility] [place] [facility] [address] [id number] [place] [address]- 9726 Sep, [facility] [place] [facility] [address] [id number] [place] [address]- 5817 Sep, [facility] [place] [facility] [address] [id number] [place] [address]- 5518 Sep, [facility] [place] [facility] [address] [id number] [place] [address]- 0049 Sep, [facility] [place] [facility] [address] [id number] [place] [address]- 3708 Sep, [facility] [place] [facility] [address] [id number] [place] [address]- 5854 Sep, [facility] [place] [facility] [address] [id number] [place] [address]- 8593 Sep, [facility] [place] [facility] [address] [id number] [place] [address]- 3127 Sep, [facility] [place] [facility] [address] [id number] [place] [address]- 1260 Sep, [facility] [place] [facility] [address] [id number] [place] [address]- 3345 Sep, [facility] [place] [facility] [address] [id number] [place] [address]- 8247 Sep, [facility] [place] [facility] [address] [id number] [place] [address]- 6644 Sep, [facility] [place] [facility] [address] [id number] [place] [address]- 6846 Sep, [facility] [place] [facility] [address] [id number] [place] [address]- 7706 Sep, [facility] [place] [facility] [address] [id number] [place] [address]- 2795 Sep, [facility] [place] [facility] [address] [id number] [place] [address]- 7565 Aug, [facility] [place] [facility] [address] [id number] [place] [address]- 5551 Aug, [facility] [place] [facility] [address] [id number] [place] [address]- 7584 Aug, [facility] [place] [facility] [address] [id number] [place] [address]- 4954 Aug, [facility] [place] [facility] [address] [id number] [place] [address]- 5500 Jul, [facility] [place] [facility] [address] [id number] [place] [address]- 3354 Jul, [facility] [place] [facility] [address] [id number] [place] [address]- 9075 Jul, [facility] [place] [facility] [address] [id number] [place] [address]- 6098 Jul, [facility] [place] [facility] [address] [id number] [place] [address]- 1788 Jun, [facility] [place] [facility] [address] [id number] [place] [address]- 3256 Jun, [facility] [place] [facility] [address] [id number] [place] [address]- 2795 Jun, [facility] [place] [facility] [address] [id number] [place] [address]- 5330 Jun, [facility] [place] [facility] [address] [id number] [place] [address]- 3717 Jun, [facility] [place] [facility] [address] [id number] [place] [address]- 2790 10 Jun, 2013 [facility] [address] [id number] [place] [address] Jun, [facility] [place] [facility] [address] [id number] [place] [address]- 1088 08 Jun, 2013 [facility] [address] [id number] [place] [address]- 2256 20 May, 2013 [facility] [place] [facility] [address] [id number] [place] [address]- 5026 20 May, 2013 [facility] [address] [id number] [place] [address]- 4613 18 May, 2013 [facility] [place] [facility] [address] [id number] [place] [address]- 6781 18 May, 2013 [facility] [address] [id number] [place] [address]- 7313 17 May, 2013 [facility] [address] [facility] [id number] [place] [id number] 17 May, 2013 [facility] [place] [facility] [address] [id number] [place] [address]- 8264 17 May, 2013 [facility] [place] [facility] [address] [id number] [place] [address]- 0745 17 May, 2013 [facility] [place] [facility] [address] [id number] [place] [address]- 0011 16 May, 2013 [facility] [place] [facility] [address] [id number] [place] [address]- 8420 16 May, 2013 [facility] [place] [facility] [address] [id number] [place] [address]- 9533 14 May, 2013 [facility] [place] [facility] [address] [id number] [place] [address]- 6793 14 May, 2013 [facility] [place] [facility] [address] [id number] [place] [address]- 0092 13 May, 2013 [facility] [place] [facility] [address] [id number] [place] [address]- 6309 13 May, 2013 [facility] [address] [id number] [place] [address]- 8246 May, [facility] [place] [facility] [address] [id number] [place] [address]- 0687 May, [facility] [address] [id number] [place] [address]- 9792 May, [facility] [place] [facility] [address] [id number] [place] [address]- 3648 May, [facility] [address] [id number] [place] [address]- 3551 Apr, [facility] [place] [facility] [address] [id number] [place] [address]- 1550 Apr, [facility] [place] [facility] [address] [id number] [place] [address]- 1195 Apr, [facility] [address] [id number] [place] [address]- 3439 Apr, [facility] [place] [facility] [address] [id number] [place] [address]- 1593 Aug, [facility] [address] [id number] [place] [address]- 1165 Aug, [facility] [place] [facility] [address] [id number] [place] [address]- 1178 Aug, [facility] [place] [facility] [address] [id number] [place] [address]- 9884 05 Aug, 2012 [facility] [place] [facility] [address] [id number] [place] [address]- 9177 04 Jul, 2012 [facility] [place] [facility] [address] [id number] [place] [address]- 1337 Jun, [facility] [place] [facility] [address] [id number] [place] [address]- 9700 Jun, [facility] [address] [id number] [place] [address]- 6247 Jun, [facility] [place] [facility] [address] [id number] [place] [address]- 6716 Jun, [facility] [place] [facility] [address] [facility] [id number] [place] 2497 May, [facility] [place] [facility] [address] [id number] [place] [address]- 7377 May, [facility] [place] [facility] [address] [id number] [place] [address]- 2941 May, [facility] [place] [facility] [address] [id number] [place] [address]- 6515 May, [facility] [place] [facility] [address] [id number] [place] [address]- 9080 May, [facility] [place] [facility] [address] [id number] [place] [address]- 1578 May, [facility] [place] [facility] [address] [id number] [place] [address]- 5238 May, [facility] [place] [facility] [address] [id number] [place] [address]- 7847 Apr, [facility] [place] [facility] [address] [id number] [address]- 9866 Apr, [facility] [place] [facility] [address] [id number], [place] [address]- 5406 Apr, [facility] [place] [facility] [address] [id number] [place] [address]- 8171 Apr, [facility] [place] [facility] [address] [id number] [place] [address]- 4021 Apr, [facility] [place] [facility] [address] [facility] [id number] [place] [address]- 7725 Apr, [facility] [place] [facility] [address] [id number] [place] [address]- 7652 Apr, [facility] [place] [facility] [address] [id number] [place] [address]- 5079 Mar, 2011 [facility] [place] [facility] [address] [id number] [place] 3728 Mar, [facility] [place] [facility] [address] [id number] [place] [address]- 5866 Mar, [facility] [place] [facility] [address] [id number] [place] [address]- 2447 Mar, [facility] [place] [facility] [address] [id number] [place] 9719 Mar, [facility] [place] [facility] [address] [id number] [place] [address]- 7889 Mar, [facility] [place] [facility] [address] [id number] [place] [address]- 5884 Mar, [facility] [place] [facility] [address] [id number] [place] [address]- 8843 Mar, [facility] [place] [facility] [address] [id number] [place] [address]- 2740 Mar, [facility] [place] [facility] [address] [facility] [id number] [place] [address]- 1847 15 Mar, 2012 [facility] [place] [facility] [address] [id number] [place] [address]- 2217 Mar, [facility] [place] [facility] [address] [id number] [address]- 5436 Mar, [facility] [place] [facility] [address] [id number] [place] [address]- 2174 06 Feb, 2012 [facility] [place] [facility] [address] [id number] [place] [address]- 5838 Jan, [facility] [place] [facility] [address] [id number], [place] [address]- 5998 Jan, [facility] [place] [facility] [address] [id number] [place] [address]- 7256 Jan, [facility] [place] [facility] [address] [id number] [place] [address]- 8111 Jan, [facility] [place] [facility] [address] [id number] [place] [address]- 5527 Jan, [facility] [place] [facility] [address] [id number] [place] [address]- 2082 Dec, [facility] [address] [id number] [place] [address]- 3012 Dec, [facility] [place] [facility] [address] [id number] [place] [address]- 5982 Nov, [facility] [address] [id number] [place] [address]- 7515 Nov, [facility] [address] [id number] [place] [address]- 3279 Nov, [facility] [place] [facility] [address] [id number] [place] [address]- 7962 October, [facility] [address] [id number] [place] [address]- 1016 October, [facility] [place] [facility] [address] [id number] [place] [address]- 6168 October, [facility] [place] [facility] [address] [id number] [place] [address]- 8578 October, [facility] [place] [facility] [address] [id number] [place] [address]- 0902 October, [facility] [place] [facility] [address] [id number] [place] [address]- 2074 October, [facility] [place] [facility] [address] [id number] [place] [address]- 8073 October, [facility] [place] [facility] [address] [id number] [place] [address]- 8468 26 Sep, 2011 [facility] [place] [facility] [address] [id number] [place] [address]- 4338 26 Sep, 2011 [facility] [place] [facility] [address] [id number] [place] [address]- 6688 26 Sep, 2011 [facility] [place] [facility] [address] [id number] [place] [address]- 8662 25 Sep, 2011 [facility] [place] [facility] [address] [id number] [place] [address]- 2681 24 Sep, 2011 [facility] [place] [facility] [address] [id number] [place] [address]- 0497 19 Sep, 2011 [facility] [place] [facility] [address] [id number] [place] [address]- 4088 17 Sep, 2011 [facility] [place] [facility] [address] [id number] [place] [address]- 2112 16 Sep, 2011 [facility] [place] [facility] [address] [id number] [place] [address]- 8647 16 Sep, 2011 [facility] [place] [facility] [address] [id number] [place] [address]- 9784 14 Sep, 2011 [facility] [place] [facility] [address] [id number] [place] [address]- 7303 13 Sep, 2011 [facility] [place] [facility] [address] [id number] [place] [address]- 9308 10 Sep, 2011 [facility] [place] [facility] [address] [id number] [place] [address]- 5138 09 Sep, 2011 [facility] [place] [facility] [address] [id number] [place] [address]- 9030 27 Aug, 2011 [facility] [place] [facility] [address] [id number] [place] [address]- 0652 12 Aug, 2011 [facility] [place] [facility] [address] [id number] [place] [address]- 2363 08 Aug, 2011 [facility] [place] [facility] [address] [id number] [place] [address]- 4288 Aug, [facility] [place] [facility] [address] [id number] [place] [address]- 6206 28 Jul, 2011 [facility] [place] [facility] [address] [id number] [place] [address]- 5786 22 Jul, 2011 [facility] [place] [facility] [address] [id number] [place] [address]- 8726 16 Jul, 2011 [facility] [place] [facility] [address] [id number] [place] [address] 2546 15 Jul, 2011 [facility] [place] [facility] [address] [id number] [place] [address]- 1346 14 Jul, 2011 [facility] [place] [facility] [address] [id number] [place] [address]- 9213 10 Jul, 2011 [facility] [place] [facility] [address] [id number] [place] [address]- 4410 Jun, [facility] [place] [facility] [address] [id number] [place] [address]- 4715 Jun, [facility] [place] [facility] [address] [id number] [place] [address]- 1710 Jun, [facility] [place] [facility] [address] [id number] [place] [address]- 3774 Jun, [facility] [place] [facility] [address] [id number] [place] [address]- 6143 Jun, [facility] [place] [facility] [address] [id number] [place] [address]- 1824 May, [facility] [place] [facility] [address] [id number] [place] [address] 2546 May, [facility] [place] [facility] [address] [id number] [place] [address]- 0766 May, [facility] [place] [facility] [address] [id number] [place] [address]- 9593 14 May, 2011 [facility] [place] [facility] [address] [id number] [place] [address]- 1495 12 May, 2011 [facility] [place] [facility] [address] [id number] [place] [address]- 9845 May, [facility] [place] [facility] [address] [id number] [place] [address]- 5650 May, [facility] [place] [facility] [address] [id number] [place] [address]- 1626 Apr, [facility] [place] [facility] [address] [id number] [place] [address]- 0121 Apr, [facility] [place] [facility] [address] [id number] [place] [address]- 5503 Apr, [facility] [place] [facility] [address] [id number] [place] [address]- 7482 Apr, [facility] [place] [facility] [address] [id number] [place] [address]- 4086 Apr, [facility] [place] [facility] [address] [id number] [place] [address]- 3860 Apr, [facility] [place] [facility] [address] [id number] [place] [address]- 8251 Mar, [facility] [place] [facility] [address] [id number], [place] [address]- 6775 Mar, [facility] [place] [facility] [address] [id number], [place] [address]- 9750 Mar, [facility] [place] [facility] [address] [id number] [place] [address]- 3897 Mar, [facility] [place] [facility] [address] [id number], [place] [address]- 1489 Jan, [facility] [place] [facility] [address] [id number] [place] [address]- 8344 Dec, [facility] [place] [facility] [address] [id number] [place] [address]- 0195 13 Dec, 2010 [facility] [address] [id number] [place] [address]- 2336 11 Oct, 2010 [facility] [place] [facility] [address] [id number] [place] [address] 2546 20 Sep, 2010 [facility] [address] [id number] [place] [address]- 6446 14 Sep, 2010 [facility] [address] [id number] [place] [address] 2546 17 Jul, 2010 [facility] [address] [id number] [place] [address], [place] [address] 16 Jul, 2010 [facility] [address] [id number] [place] [address] 31 May, 2010 [facility] [address] [id number] [place] [address] May, [facility] [address] [id number] [place] [address] 08 May, 2010 [facility] [address] [id number] [place] [address] May, [facility] [address] [id number] [place] [address] Apr[facility] [place] [facility] [address] [id number] [place] [address] Apr, [facility] [address] [id number] [place] [address] 25[address] Apr, [facility] [place] [facility] [address] [id number] [place] [address] [address] Apr[facility] [place] [facility] [address] [id number] [place] [address] Apr, [facility] [address] [id number] [place] [address] Mar, [facility] [place] [facility] [address] [id number] [place] [address] 69[address] 14 Mar, 2010 [facility] [place] [facility] [address] [id number] [place] [address]47 13 Mar, 2010 [facility] [place] [facility] [address] [id number] [place] [address] 12 Mar, 2010 [facility] [place] [facility] [address] [id number] [place] [address] 9[address] 20 Jan, 2010 [facility] [place] [facility] [address] [id number] [place] [address] 15 Dec, 2009 [facility] [place] [facility] [address] [id number] [address] 10 Sep, 2009 [facility] [place] [facility] [address] [facility] [id number] [place] [address] 08 May, 2009 [facility] [place] [facility] [address] [id number][place] [address] 06 May, 2009 [facility] [place] [facility] [address] [id number][place] [address] May, [facility] [place] [facility] [address] [facility] [id number][place] [address] 17 Apr, 2009 [facility] [place] [facility] [address] [id number], [place] [address] 17 Apr, 2009 [facility] [place] [facility] [address] [id number], [place] [address] 10 Apr, 2009 [facility] [place] [facility] [address] [id number], [place] [address] 10 Apr, 2009 [facility] [place] [facility] [address] [id number][place] [address] 09 Apr, 2009 [facility] [place] [facility] [address] [facility] [id number], [place] [address] 15 Mar, 2009 [facility] [place] [facility] [address] [id number][place] [address] Mar, [facility] [address] [facility] [id number] [place] [address] Jul, IMMUNIZATIONS No Known Immunizations SOCIAL HISTORY [...] 08/2017 Surgical History nephrectomy 03/2017 Hospitalization History [facility]ul[facility] 12/20/15 Hospitalization History [facility]- Abd pain 03/07/2017 Hospitalization History [facility]- Abd pain 03/14/2017 Hospitalization History [facility]- No bowel movement, rash 04/13/2017 Hospitalization History [facility]- Abd pain r/t kidney surgery on 04/17/2017 Hospitalization History [facility]- Abd pain r/t kidney surgery on 04/18/2017 Hospitalization History [facility]- Lower abd pain 04/30/2017 Hospitalization History [facility]- Cannot urinate 05/30/2017 Hospitalization History [facility]- Pancreatitis Sx 06/29/2017 Hospitalization History [facility]- Stomach pain 07/22/2017 Hospitalization History [facility]- Left side pain 08/12/2017 Hospitalization History [facility]- Incision site infection 08/30/2017 Hospitalization History [facility]- Post Op Seroma/Hematoma Left Abdomen. Discharged 09/04/17- Dr Dnaiel 09/02/2017 Hospitalization History [facility]- Right shoulder and back pain 2017 Hospitalization History [facility]- Shoulder/Back pain 11/11/2017 Hospitalization History [facility]- Right shoulder blade pain 12/04/[address] [facility]- C-Diff 12/13/2017 Hospitalization History C diff et MRSA 12/27/2017
--- OUTSIDE RECORDS SUMMARY | 2018-02-24 14:26 | XMS REPORT ---
Author Author SAI CARMEN [facility] [address] Address [address] [place] [address] Care Team Providers Care Customer Associate Name Role Phone CORTNEY GIBBSHANY Unavailable PROBLEMS Type Condition ICD9-CM Code [id number] Code Onset Dates Condition Status SNOMED Code Problem Polydipsia R63.1 Active 32142462 Problem Trichotillomania F63.3 Active 11293219 Problem Atelectasis J98.11 Active 38312932 Problem Intestinal malabsorption, unspecified K90.9 Active 01068365 Problem Chronic fatigue R53.82 Active 61969113 Problem Generalized social phobia F40.11 Active 39475831 Problem Restless leg syndrome G25.81 Active 59152812 Problem Moderate episode of recurrent major depressive disorder F33.1 Active 751098263 Problem Chronic post-traumatic stress disorder (PTSD) F43.12 Active 733098430 Problem History of renal cell carcinoma Z85.528 Active 798056650 Problem Chronic tension-type headache, intractable G44.221 Active 852940895 Problem Nodule of left lung R91.1 Active 437410534 Problem Hirsuties L68.0 Active 946433938 Problem FH: polycystic ovary Z84.2 Active 111306535 Problem Morbid (severe) obesity due to excess calories E66.01 Active 133226856 Problem Chronic pancreatitis K86.1 Active 643297426 Problem Hyperlipidemia, mixed E78.2 Active 330896277 Problem Asthma J45.909 Active 868288605 ALLERGIES Substance Reaction Event Type Date Status Penicillin V Potassium Unknown Drug Allergy Dec, Active Fentanyl Unknown Drug Allergy Dec, Active Demerol Unknown Drug Allergy Dec, Active ENCOUNTERS Encounter Location Date Diagnosis [facility] [address] [facility] [id number] [address] Mar, [facility] [address] [facility] [id number] [address] Feb, [facility] [id number] [place] [address] 89213- 3528 Jan, Acute pain of right knee M25.561 ; Right upper quadrant abdominal pain R10.11 and BMI 45.0-49.9, adult Z68.42 [facility] [id number] [place] [address] 19650- 1942 Jan, [facility] [address] [place] [id number] [place] [address] 06066- 8715 Jan, [facility] [id number] [place] [address] 79038- 0704 Dec, [facility] [id number] [place] [address] 76541- 3079 Dec, Intestinal malabsorption, unspecified K90.9 and Diarrhea, unspecified R19.7 [place] [address] [id number] [place] [address] 55628- 4600 Dec, [facility] [id number] [place] [address] 18698- 5776 Dec, Strep throat J02.0 ; Intestinal malabsorption, unspecified K90.9 ; Diarrhea, unspecified R19.7 ; Postoperative seroma involving digestive system after non-digestive system procedure K91.873 ; Hyperlipidemia, mixed E78.2 and BMI 45.0-49.9, adult Z68.42 [facility] [id number] [place] [address] 93498- 3238 Dec, [facility] [id number] [place] [address] 14483- 8163 Dec, Nausea R11.0 [place] [address] [address] [id number] [place] [address] 77795- 9992 Dec, [facility] [id number] [place] [address] 42335 -4343 Dec, Sore throat J02.9 ; Strep throat J02.0 and BMI 45.0-49.9, adult Z68.42 [facility] [address] [place] [address] 9436 Dec, [facility] [id number] [place] [address]- 0327 Dec, [facility] [id number] [place] [address]- 6574 Dec, [facility] [address] [id number] [address] 5131 Dec, [facility] [address] [place] [address]- 3903 Dec, [facility] [id number] [place] [address]- 6114 Dec, [facility] [address], [place] [address]- 2306 Dec, [facility] [address] [address]- 2706 Dec, [facility] [address], [place] [address]- 5536 Dec, Clostridium difficile colitis A04.72 ; Intractable vomiting with nausea, unspecified vomiting type R11.2 and BMI 45.0-49.9, adult Z68.42 [facility] [address] [address] 5201 Dec, [facility] [address], [place] [address]- 6558 Nov, [facility] [address], [place] [address]- 2600 Nov, [facility] [place] [facility] [address], [place] [address]- 3397 Nov, [facility] [address], [place] [address]- 2398 Nov, [facility] [id number] [place] [address] 33708 -4534 Nov, [place] [address] 85558- 7115 18 Nov, 2017 Hyperlipidemia, mixed E78.2 [facility] [id number] [place] [address] 58325 -2203 Nov, Acute suppurative otitis media of right ear without spontaneous rupture of tympanic membrane, recurrence not specified H66.001 and BMI 45.0-49.9, adult Z68.[address] 06326- 6153 Nov, Hyperlipidemia, mixed E78.2 [place] [id number] [place] [address] 19725- 0282 Nov, [place] [address] 86294- 7305 Nov, [place] [id number] [place] [address] 70566- 6029 Nov, Nodule of left lung R91.[address] 32342- 3636 04 Nov, 2017 Medicare annual wellness visit, [...] and Encounter for immunization Z23 [place] [id number] [place] [address] 56697- 4629 October, [address] 20011- 7473 October, Nodule of left lung R91.1 [place] [id number] [place] [address] 29066- 4074 October, Nodule of left lung R91.1 [place] [id number] [place] [address] 82894- 0024 October, Recurrent major depressive disorder, in partial remission F33.41 ; Restless leg syndrome G25.81 ; Generalized social phobia F40.11 ; Chronic post-traumatic stress disorder (PTSD) F43.12 ; BMI 45.0-49.9, adult Z68.42 and Trichotillomania F63.3 [place] [id number] [place] [address] 03509- 5769 October, [place] [id number] [place] [address] 99221- 4688 Sep, Chronic fatigue R53.82 and BMI 45.0-49.9, adult Z68.42 [place] [id number] [place] [address] 26690- 7257 Aug, [place] [id number] [place] [address] 21738- 2237 Jul, Restless leg syndrome G25.81 and B12 deficiency E53.8 [place] [id number] [place] [address] 69642- 7911 Jul, [place] [id number] [place] [address] 70625- 5086 Jul, [place] [id number] [place] [address] 47504- 2130 Jun, [place] [id number] [place] [address] 67153- 6067 Jun, Fatigue, unspecified type R53.83 ; History of renal cell carcinoma Z85.528 ; Chronic pancreatitis K86.1 ; Restless leg syndrome G25.81 ; Dark urine R82.99 and BMI 45.0-49.9, adult Z68.42 [facility] [address], [place] [address]- 2437 Jun, [facility] [address], [place] [address]- 5069 Jun, [facility] [address], [place] [address]- 8699 Jun, [facility] [address], [place] [address]- 2280 Jun, [facility] [address], [place] [address]- 4460 May, Chronic post-traumatic stress disorder (PTSD) F43.12 ; Moderate episode of recurrent major depressive disorder F33.1 ; Trichotillomania F63.3 and Generalized social phobia F40.11 [place] [address], [place] [address]- 0007 May, [place] [address], [place] [address]- 8995 May, Chronic post-traumatic stress disorder (PTSD) F43.12 ; Moderate episode of recurrent major depressive disorder F33.1 ; Trichotillomania F63.3 and Generalized social phobia F40.11 [place] [id number] [address]- 6148 May, Hyperlipidemia, mixed E78.2 ; Morbid (severe) obesity due to excess calories E66.01 ; Chronic post-traumatic stress disorder (PTSD) F43.12 ; Moderate episode of recurrent major depressive disorder F33.1 ; Trichotillomania F63.3 and Generalized social phobia F40.11 [place] [address] [address]- 9831 Apr, [place] [id number] [address]- 9248 Apr, Hyperlipidemia, mixed E78.2 ; Morbid (severe) obesity due to excess calories E66.01 ; Chronic post-traumatic stress disorder (PTSD) F43.12 ; Moderate episode of recurrent major depressive disorder F33.1 ; Trichotillomania F63.3 and Generalized social phobia F40.11 [facility] [id number] [place] [address] 26692- 4782 Apr, Trichotillomania F63.3 ; Generalized social phobia F40.11 ; Chronic post-traumatic stress disorder (PTSD) F43.12 and Moderate episode of recurrent major depressive disorder F33.1 [facility] [id number] [place] [address] 53040- 8345 Apr, [facility] [address] 48141- 0440 Apr, [place] [id number] [place] [address] 21333- 9451 Mar, Moderate episode of recurrent major depressive disorder F33.1 ; Trichotillomania F63.3 ; Chronic post-traumatic stress disorder (PTSD) F43.12 ; Generalized social phobia F40.11 and Restless leg syndrome G25.81 [place] [address] [id number] [place] [address] 56927- 9709 Mar, [facility] [id number] [place] [address] 79873- 2219 Mar, [facility] [id number] [place] [address] 38498- 8855 Feb, Left kidney mass N28.89 [facility] [id number] [place] [address] 80255- 6038 Jan, [facility] [address] 77293- 4742 Dec, Polydipsia R63.1 ; Chronic pancreatitis K86.1 and Fatigue, unspecified type R53.83 [facility] [id number] [place] [address] 78512- 0755 Nov, [place] [address], [place] [address]- 9884 Nov, [facility] [id number] [place] [address] 49243- 7016 Nov, Headache around the eyes R51 [facility] [id number] [place] [address] 17894- 1713 Nov, [facility] [id number] [place] [address] 87297- 3345 October, STD exposure Z20.2 [facility] [id number] [place] [address] 86967- 6154 October, STD exposure Z20.2 [facility] [id number] [place] [address] 98165- 3467 October, Chronic post-traumatic stress disorder (PTSD) F43.12 ; Generalized social phobia F40.11 ; Trichotillomania F63.3 and Restless leg syndrome G25.81 [facility] [id number] [place] [address] 00033- 4374 October, [facility] [id number] [place] [address] 41796- 5111 Sep, [facility] [id number] [place] [address] 84715- 3024 Aug, [facility] [id number] [place] [address] 06875- 9887 15 Aug, 2016 [facility] [address] [place] [address] 60319- 4750 08 Aug, 2016 Neck mass R22.1 [facility] [id number] [place] [address] 16968- 2473 03 Aug, 2016 Atelectasis J98.11 [facility] [address] [place] [address] 60090- 3022 28 Jul, 2016 Hyperlipidemia, mixed E78.2 ; Atypical pneumonia J18.9 and Neck mass R22.1 [place] [id number] [place] [address] 30084- 4364 15 Jul, 2016 Hemoptysis R04.2 [place] [address] [id number] [place] [address] 29972- 8743 08 Jul, 2016 Acute non-recurrent pansinusitis J01.40 ; Hemoptysis R04.2 ; Polydipsia R63.1 and Malaise R53.81 [facility] [place] [id number] [place] [address] 54064 -2395 May, Other viral agents as the cause of diseases classified elsewhere B97.89 and Acute upper respiratory infection, unspecified J06.9 [facility] [place] [id number] [place] [address] 66050 -7421 Mar, Nausea R11.0 [facility] IN [address] 86528 -1871 Dec, Hives L50.9 [place] [address] 23536- 0730 Dec, [facility] [place] [id number] [place] [address] 54209 -7334 Dec, Cutaneous abscess of limb, unspecified L02.419 ; Cellulitis of unspecified part of limb L03.119 ; Encounter for incision and drainage procedure Z01.89 and Encounter for recheck of abscess following incision and drainage Z09 [facility] [place] [id number] [place] [address] 26198 -4898 Dec, Abscess of leg, right L02.[address] 56949- 1282 Dec, Cellulitis of unspecified part of limb L03.119 and Cutaneous abscess of limb, unspecified L02.419 [place] [id number] [place] [address] 13491- 1049 Dec, [place] [address] [place] [address] 78780- 3714 06 Dec, 2015 [facility] [id number] [place] [address] 95745 -9697 Aug, [facility] [id number] [place] [address] 87928- 6680 04 Aug, 2015 [facility] [address] 09515 -6943 04 Jul, 2015 Pain in unspecified wrist M25.539 and Back pain, thoracic M54.6 [facility] [place] [id number] [place] [address] 78240 -3729 Jun, Strain of right wrist, initial encounter S66.911A [place] [id number] [place] [address] 34436- 4385 Jun, Chronic pancreatitis, unspecified pancreatitis type K86.1 ; Hirsuties L68.0 ; Morbid (severe) obesity due to excess calories E66.01 ; Chronic pancreatitis K86.1 and Asthma J45.909 [place] [id number] [place] [address] 72610- 3197 May, [place] [id number] [place] [address] 74981- 0136 May, Hyperlipidemia, mixed E78.2 and Muscle spasm of back M62.830 [place] [id number] [place] [address] 91208- 2644 30 Apr, 2015 [place] [id number] [place] [address] 47953- 4602 16 Apr, 2015 Torticollis M43.6 [place] [id number] [place] [address] 24477- 2087 09 Apr, 2015 Right-sided thoracic back pain M54.6 [place] [address] [id number] [place] [address] 55148- 1663 15 Oct, 2015 Rash R21 [facility] [address], [place] [address]- 8118 Mar, [facility] [id number] [place] [address] 17573- 6261 Jan, [facility] [id number] [place] [address] 70057- 2469 Dec, [facility] [id number] [place] [address] 18565- 3135 Dec, Urinary frequency 788.41 and Nocturia more than twice per night 788.43 [facility] [id number] [place] [address] 91199- 3878 Nov, [facility] [id number] [place] [address] 64149- 2062 Nov, [facility] [id number] [place] [address] 30285- 5283 Nov, Abdominal pain 789.00 [facility] [id number] [place] [address] 41724- 5280 October, TDAP DX V06.1 [facility] [id number] [place] [address] 50907- 9088 October, [facility] [id number] [place] [address] 98799- 2802 October, Disturbance of skin sensation 782.0 ; Wrist pain, right 719.43 ; Hyperlipidemia 272.4 and Skin lesion of face 709.9 [facility] [address], [place] [address]- 7022 Sep, [facility] [id number] [place] [address] 26871- 9496 Sep, [facility] [address], [place] [address]- 6903 Aug, [facility] [id number] [place] [address] 64812- 8217 Aug, [facility] [place] [facility] [address] [id number] [place] [address]- 8742 Aug, [facility] [place] [facility] [address] [id number] [place] [address]- 5038 23 Aug, 2014 [facility] [place] [facility] [address] [id number] [place] [address]- 5642 16 Aug, 2014 [facility] [place] [facility] [address] [id number] [place] [address]- 0184 16 Aug, 2014 [facility] [place] [facility] [address] [id number] [place] [address]- 1910 Aug, [facility] [place] [facility] [address] [id number] [place] [address]- 6159 14 Aug, 2014 [facility] [place] [facility] [address] [id number] [place] [address]- 8609 Aug, [facility] [place] [facility] [address] [id number] [place] [address]- 4337 Aug, [facility] [place] [facility] [address] [id number] [place] [address]- 5005 Aug, [facility] [place] [facility] [address] [id number] [place] [address]- 4156 Aug, [facility] [place] [facility] [address] [id number] [place] [address]- 1998 Aug, [facility] [place] [facility] [address] [id number] [place] [address]- 0125 Aug, [facility] [place] [facility] [address] [id number] [place] [address]- 3197 Jul, [facility] [place] [facility] [address] [id number] [place] [address]- 4590 Jul, [facility] [place] [facility] [address] [id number] [place] [address]- 7311 Jul, [facility] [place] [facility] [address] [id number] [place] [address]- 7120 13 Jul, 2014 [facility] [place] [facility] [address] [id number] [place] [address]- 1081 Jul, [facility] [place] [facility] [address] [id number] [place] [address]- 8516 Jul, [facility] [place] [facility] [address] [id number] [place] [address]- 3537 Jun, [facility] [place] [facility] [address] [id number] [place] [address]- 7271 Jun, [facility] [place] [facility] [address] [id number] [place] [address]- 6009 Jun, [facility] [place] [facility] [address] [id number] [place] [address]- 4768 Jun, [facility] [place] [facility] [address] [id number] [place] [address]- 9189 Jun, [facility] [place] [facility] [address] [id number] [place] [address]- 1548 Jun, [facility] [place] [facility] [address] [id number] [place] [address]- 8132 Jun, [facility] [place] [facility] [address] [id number] [place] [address]- 0979 15 Jun, 2014 [facility] [place] [facility] [address] [id number] [place] [address]- 9646 May, [facility] [place] [facility] [address] [id number] [place] [address]- 5460 19 May, 2014 [facility] [place] [facility] [address] [id number] [place] [address]- 4895 18 May, 2014 [facility] [place] [facility] [address] [id number] [place] [address]- 3756 18 May, 2014 [facility] [place] [facility] [address] [id number] [place] [address]- 2259 May, [facility] [place] [facility] [address] [id number] [place] [address]- 8787 May, [facility] [place] [facility] [address] [id number] [place] [address]- 6700 May, [facility] [place] [facility] [address] [id number] [place] 1933 May, [facility] [place] [facility] [address] [id number] [place] [address]- 6927 May, [facility] [place] [facility] [address] [id number] [place] [address]- 6344 May, [facility] [place] [facility] [address] [id number] [place] [address]- 6363 May, [facility] [place] [facility] [address] [id number] [place] [address]- 8030 May, [facility] [place] [facility] [address] [id number] [place] [address]- 5250 Apr, [facility] [place] [facility] [address] [id number] [place] [address]- 7442 Apr, [facility] [place] [facility] [address] [id number] [place] [address]- 3630 Apr, [facility] [place] [facility] [address] [id number], [place] [address]- 0222 Apr, [facility] [place] [facility] [address] [id number], [place] [address] Apr, [facility] [place] [facility] [address] [id number] [place] [address] Apr, [facility] [place] [facility] [address] [id number] [place] [address] Apr, [facility] [place] [facility] [address] [id number] [place] [address] Apr, [facility] [place] [facility] [address] [id number] [place] [address] 13 Apr, 2014 [facility] [place] [facility] [address] [id number] [place] [address] Apr, [facility] [place] [facility] [address] [id number] [place] [address] Apr, [facility] [place] [facility] [address] [id number] [place] [address] Apr, [facility] [place] [facility] [address] [id number] [place] [address] Mar, [facility] [place] [facility] [address] [id number] [place] [address] Mar, [facility] [place] [facility] [address] [id number] [place] [address] Mar, [facility] [place] [facility] [address] [id number] [place] [address] Mar, [facility] [place] [facility] [address] [id number] [place] [address] 10 Feb, 2014 [facility] [place] [facility] [address] [id number] [place] [address] 10 Feb, 2014 [facility] [place] [facility] [address] [facility] [id number] [place] [address] 05 Feb, 2014 [facility] [place] [facility] [address] [id number] [place] [address] 05 Feb, 2013 [facility] [place] [facility] [address] [id number] [place] [address] 05 Feb, 2013 [facility] [place] [facility] [address] [id number] [place] [address] Feb, [facility] [place] [facility] [address] [id number] [place] [address] Jan, [facility] [place] [facility] [address] [id number] [place] [address] Jan, [facility] [place] [facility] [address] [id number] [place] [address] Jan, [facility] [place] [facility] [address] [id number] [place] [address] Jan, [facility] [place] [facility] [address] [id number] [place] [address] Jan, [facility] [place] [facility] [address] [id number] [place] [address] Jan, [facility] [place] [facility] [address] [id number] [place] [address]- [address] Jan, [facility] [place] [facility] [address] [id number] [place] [address] Jan, [facility] [place] [facility] [address] [id number] [place] [address] Jan, [facility] [place] [facility] [address] [id number] [place] [address] Jan, [facility] [place] [facility] [address] [id number] [place] [address] Jan, [facility] [place] [facility] [address] [id number] [place] [address] Jan, [facility] [place] [facility] [address] [id number] [place] [address] Jan, [facility] [place] [facility] [address] [id number] [place] [address] Jan, [facility] [place] [facility] [address] [id number] [place] [address] Dec, [facility] [place] [facility] [address] [id number] [place] [address] Dec, [facility] [place] [facility] [address] [id number] [place] [address] Dec, [facility] [place] [facility] [address] [id number] [place] [address] 3267 Dec, [facility] [place] [facility] [address] [id number] [place] [address] Nov, [facility] [place] [facility] [address] [id number] [place] [address] Nov, [facility] [place] [facility] [address] [id number] [place] [address]- 3654 Nov, [facility] [place] [facility] [address] [id number] [place] [address]- 4670 Nov, [facility] [place] [facility] [address] [id number] [place] [address]- 7644 Nov, [facility] [place] [facility] [address] [id number] [place] [address] 6240 October, [facility] [place] [facility] [address] [id number] [place] [address]- 2754 October, [facility] [place] [facility] [address] [id number] [place] [address] October, [facility] [place] [facility] [address] [id number] [place] [address]- 1726 October, [facility] [place] [facility] [address] [id number] [place] [address] 3417 October, [facility] [place] [facility] [address] [id number] [place] [address]- 9237 October, [facility] [place] [facility] [address] [id number] [place] [address] 6750 October, [facility] [place] [facility] [address] [id number] [place] [address]- 2805 October, [facility] [place] [facility] [address] [id number] [place] [address]- 6906 October, [facility] [place] [facility] [address] [id number] [place] [address]- 8499 October, [facility] [place] [facility] [address] [id number] [place] [address] 8442 October, [facility] [address] [id number] [place] [address] 3575 October, [facility] [address] [id number] [place] [address] 2082 October, [facility] [address] [id number] [place] [address]- 9132 October, [facility] [address] [id number] [place] [address] 8580 Sep, [facility] [address] [id number] [place] [address]- 2587 Sep, [facility] [place] [facility] [address] [id number] [place] [address]- 3991 Sep, [facility] [address] [id number] [place] [address]- 9824 Sep, [facility] [place] [facility] [address] [id number] [place] [address]- 7063 Sep, [facility] [address] [id number] [place] [address]- 7428 Sep, [facility] [place] [facility] [address] [id number] [place] [address]- 2784 Sep, [facility] [place] [facility] [address] [id number] [place] [address]- 8872 Sep, [facility] [place] [facility] [address] [id number] [place] [address]- 9618 Sep, [facility] [place] [facility] [address] [id number] [place] [address]- 4732 Sep, [facility] [place] [facility] [address] [id number] [place] [address]- 5705 Sep, [facility] [place] [facility] [address] [id number] [place] [address]- 5533 Sep, [facility] [place] [facility] [address] [id number] [place] [address]- 7372 Sep, [facility] [place] [facility] [address] [id number] [place] [address]- 8083 Sep, [facility] [place] [facility] [address] [id number] [place] [address]- 1348 Sep, [facility] [place] [facility] [address] [id number] [place] [address]- 6048 Aug, [facility] [place] [facility] [address] [id number] [place] [address]- 1429 Aug, [facility] [place] [facility] [address] [id number] [place] [address]- 6220 Aug, [facility] [place] [facility] [address] [id number] [place] [address]- 9530 Aug, [facility] [place] [facility] [address] [id number] [place] [address]- 0551 Jul, [facility] [place] [facility] [address] [id number] [place] [address]- 2124 Jul, [facility] [place] [facility] [address] [id number] [place] [address]- 6745 Jul, [facility] [place] [facility] [address] [id number] [place] [address]- 2677 Jul, [facility] [place] [facility] [address] [id number] [place] [address]- 5304 Jun, [facility] [place] [facility] [address] [id number] [place] [address]- 7154 Jun, [facility] [place] [facility] [address] [id number] [place] [address]- 9345 Jun, [facility] [place] [facility] [address] [id number] [place] [address]- 0204 Jun, [facility] [place] [facility] [address] [id number] [place] [address]- 0725 10 Jun, 2013 [facility] [address] [id number] [place] [address]- 7376 10 Jun, 2013 [facility] [address] [id number] [place] [address]- 1881 08 Jun, 2013 [facility] [address] [id number] [place] [address]- 4626 08 Jun, 2013 [facility] [address] [id number] [place] [address]- 9969 20 May, 2013 [facility] [address] [id number] [place] [address]- 9409 20 May, 2013 [facility] [address] [id number] [place] [address]- 4171 18 May, 2013 [facility] [address] [facility] [id number] [place] [address]- 9737 18 May, 2013 [facility] [address] [id number] [place] [address]- 6672 17 May, 2013 [facility] [place] [facility] [address] [facility] [id number] [place] [id number] 17 May, 2013 [facility] [address] [facility] [id number] [place] [address] 17 May, 2013 [facility] [address] [id number] [place] [address]- 2939 17 May, 2013 [facility] [place] [facility] [address] [id number] [place] [address]- 2721 16 May, 2013 [facility] [place] [facility] [address] [id number] [place] [address]- 6730 16 May, 2013 [facility] [place] [facility] [address] [facility] [id number] [place] [address]- 8150 14 May, 2013 [facility] [place] [facility] [address] [facility] [id number] [place] [address]- 8496 14 May, 2013 [facility] [place] [facility] [address] [id number] [place] [address]- 1386 May, [facility] [address] [id number] [place] [address]- 3233 May, [facility] [place] [facility] [address] [id number] [place] [address]- 2754 May, [facility] [place] [facility] [address] [id number] [place] [address]- 7937 May, [facility] [place] [facility] [address] [id number] [place] [address]- 0130 May, [facility] [place] [facility] [address] [id number] [place] [address]- 5223 May, [facility] [address] [id number] [place] [address]- 0488 Apr, [facility] [place] [facility] [address] [id number] [place] [address]- 3882 Apr, [facility] [place] [facility] [address] [id number] [place] [address]- 1482 Apr, [facility] [place] [facility] [address] [id number] [place] [address]- 7760 Apr, [facility] [place] [facility] [address] [id number] [place] [address]- 0430 Aug, [facility] [place] [facility] [address] [id number] [place] [address]- 3404 Aug, [facility] [place] [facility] [address] [id number] [place] [address]- 4795 Aug, [facility] [place] [facility] [address] [id number] [place] [address]- 5214 05 Aug, 2012 [facility] [place] [facility] [address] [id number] [place] [address]- 8220 Jul, [facility] [place] [facility] [address] [id number] [place] [address]- 7676 Jun, [facility] [address] [id number] [place] [address]- 6902 Jun, [facility] [place] [facility] [address] [id number] [place] [address]- 4269 Jun, [facility] [place] [facility] [address] [id number] [place] [address]- 0292 Jun, [facility] [place] [facility] [address] [id number] [place] [address]- 8088 May, [facility] [place] [facility] [address] [id number] [place] [address]- 4340 May, [facility] [place] [facility] [address] [id number] [place] [address]- 8968 May, [facility] [place] [facility] [address] [id number] [place] [address]- 2008 May, [facility] [place] [facility] [address] [id number] [place] [address]- 8712 May, [facility] [place] [facility] [address] [id number] [place] [address]- 8703 May, [facility] [place] [facility] [address] [id number] [place] [address]- 5424 May, [facility] [place] [facility] [address] [id number], [place] [address]- 3219 Apr, [facility] [place] [facility] [address] [id number], [place] [address]- 3618 Apr, [facility] [place] [facility] [address] [id number] [place] [address]- 9239 Apr, [facility] [place] [facility] [address] [id number] [place] [address]- 4436 Apr, [facility] [place] [facility] [address] [id number] [place] [address]- 5500 Apr, [facility] [place] [facility] [address] [id number] [place] [address]- 4047 Apr, [facility] [address] [id number] [place] [address]- 9161 Apr, [facility] [place] [facility] [address] [id number] [place] [address]645 Mar, [facility] [address] [id number] [place] [address]- 8819 Mar, [facility] [place] [facility] [address] [id number] [place] [address]- 9859 Mar, [facility] [address] [id number] [place] [address]- 7714 Mar, [facility] [place] [facility] [address] [id number] [place] Mar, [facility] [place] [facility] [address] [id number] [place] [address]- 3603 Mar, [facility] [address] [id number] [place] [address]- 5205 Mar, [facility] [place] [facility] [address] [id number] [place] [address]- 9131 Mar, [facility] [address] [facility] [id number], [place] [address]- 5744 Mar, [facility] [place] [facility] [address] [id number] [place] [address]- 1964 Mar, [facility] [place] [facility] [address] [id number], [place] [address]- 1774 Mar, [facility] [place] [facility] [address] [id number] [place] [address]- 3918 Mar, [facility] [place] [facility] [address] [facility] [id number] [place] [address]- 2546 Feb, [facility] [place] [facility] [address] [id number], [place] [address]- 2207 Jan, [facility] [place] [facility] [address] [id number] [place] [address]- 8625 Jan, [facility] [place] [facility] [address] [id number] [place] [address]- 6919 Jan, [facility] [place] [facility] [address] [id number] [place] [address]- 1533 Jan, [facility] [place] [facility] [address] [id number] [place] [address]- 9056 Jan, [facility] [place] [facility] [address] [id number] [place] [address]- 6859 Dec, [facility] [place] [facility] [address] [id number] [place] [address]- 3576 Dec, [facility] [place] [facility] [address] [id number] [place] [address]- 5240 Nov, [facility] [place] [facility] [address] [id number] [place] [address]- 4368 Nov, [facility] [place] [facility] [address] [id number] [place] [address]- 6085 Nov, [facility] [place] [facility] [address] [id number] [place] [address]- 5814 October, [facility] [place] [facility] [address] [id number] [place] [address]- 4962 October, [facility] [place] [facility] [address] [id number] [place] [address]- 7223 October, [facility] [place] [facility] [address] [id number] [place] [address]- 6219 October, [facility] [place] [facility] [address] [id number] [place] [address]- 5586 October, [facility] [place] [facility] [address] [id number] [place] [address]- 2488 October, [facility] [place] [facility] [address] [id number] [place] [address]- 4421 October, [facility] [address] [id number] [place] [address]- 2671 Sep, [facility] [place] [facility] [address] [id number] [place] [address]- 0176 26 Sep, 2011 [facility] [address] [id number] [place] [address]- 9233 Sep, [facility] [place] [facility] [address] [id number] [place] [address]- 1534 25 Sep, 2011 [facility] [address] [id number] [place] [address]- 6551 24 Sep, 2011 [facility] [address] [id number] [place] [address]- 3041 19 Sep, 2011 [facility] [address] [id number] [place] [address]- 6751 17 Sep, 2011 [facility] [place] [facility] [address] [id number] [place] [address]- 0827 16 Sep, 2011 [facility] [address] [id number] [place] [address]- 0638 16 Sep, 2011 [facility] [place] [facility] [address] [id number] [place] [address]- 0485 14 Sep, 2011 [facility] [place] [facility] [address] [id number] [place] [address]- 6500 13 Sep, 2011 [facility] [place] [facility] [address] [id number] [place] [address]- 4381 10 Sep, 2011 [facility] [place] [facility] [address] [id number] [place] [address]- 2579 09 Sep, 2011 [facility] [place] [facility] [address] [id number] [place] [address]- 0395 27 Aug, 2011 [facility] [place] [facility] [address] [id number] [place] [address]- 7513 12 Aug, 2011 [facility] [place] [facility] [address] [id number] [place] [address]- 2549 08 Aug, 2011 [facility] [place] [facility] [address] [id number] [place] [address]- 1736 06 Aug, 2011 [facility] [place] [facility] [address] [id number] [place] [address]- 5316 28 Jul, 2011 [facility] [place] [facility] [address] [id number] [place] [address]- 5309 22 Jul, 2011 [facility] [place] [facility] [address] [id number] [place] [address]- 3925 16 Jul, 2011 [facility] [place] [facility] [address] [id number] [place] [address]- 7415 15 Jul, 2011 [facility] [place] [facility] [address] [id number] [place] [address]- 6609 14 Jul, 2011 [facility] [place] [facility] [address] [id number] [place] [address]- 2106 10 Jul, 2011 [facility] [place] [facility] [address] [id number] [place] [address]- 3652 Jun, [facility] [place] [facility] [address] [id number] [place] [address]- 5956 Jun, [facility] [place] [facility] [address] [id number] [place] [address]- 6278 Jun, [facility] [place] [facility] [address] [id number] [place] [address]- 6913 Jun, [facility] [place] [facility] [address] [id number] [place] [address]- 7287 Jun, [facility] [place] [facility] [address] [id number] [place] [address]- 2928 May, [facility] [place] [facility] [address] [id number] [place] [address]- 5993 May, [facility] [place] [facility] [address] [id number], [place] [address]- 6118 14 May, 2011 [facility] [place] [facility] [address] [id number] [place] [address]- 7013 14 May, 2011 [facility] [place] [facility] [address] [id number] [place] [address]- 5535 May, [facility] [place] [facility] [address] [id number] [place] [address]- 4741 07 May, 2011 [facility] [place] [facility] [address] [id number] [place] [address]- 9589 05 May, 2011 [facility] [place] [facility] [address] [id number] [place] [address]- 5176 15 Apr, 2011 [facility] [place] [facility] [address] [id number] [place] [address]- 0404 15 Apr, 2011 [facility] [place] [facility] [address] [id number] [place] [address]- 9852 Apr, [facility] [place] [facility] [address] [id number] [place] [address]- 8469 Apr, [facility] [place] [facility] [address] [id number] [place] [address]- 0797 Apr, [facility] [place] [facility] [address] [id number] [place] [address]- 3165 Apr, [facility] [place] [facility] [address] [id number], [place] [address]- 2652 Mar, [facility] [place] [facility] [address] [id number], [place] [address]- 3305 Mar, [facility] [place] [facility] [address] [id number], [place] [address]- 4429 Mar, [facility] [place] [facility] [address] [id number] [place] [address]- 3367 Mar, [facility] [place] [facility] [address] [id number] [place] [address]- 3209 Jan, [facility] [place] [facility] [address] [id number] [place] [address]- 5985 19 Dec, 2010 [facility] [address] [id number] [place] [address]- 0716 13 Dec, 2010 [facility] [place] [facility] [address] [id number] [place] [address]- 3096 October, [facility] [address] [id number] [place] [address]- 1383 Sep, [facility] [place] [facility] [address] [id number] [place] [address]- 8033 14 Sep, 2010 [facility] [address] [id number] [place] [address]- 7816 17 Jul, 2010 [facility] [address] [id number] [place] [address]- 9245 16 Jul, 2010 [facility] [address] [id number] [place] [address] 31 May, 2010 [facility] [address] [id number] [place] [address] May, [facility] [address] [id number] [place] [address] May, [facility] [address] [facility] [id number] [place] [address] May, [facility] [address] [id number] [place] [address] Apr, [facility] [address] [id number] [place] [address] Apr, [facility] [place] [facility] [address] [id number] [place] [address] Apr, [facility] [place] [facility] [address] [id number] [place] [address] Apr, [facility] [place] [facility] [address] [id number] [place] [address] Apr, [facility] [place] [facility] [address] [id number] [place] [address] 21 Mar, 2010 [facility] [place] [facility] [address] [id number] [place] [address] 14 Mar, 2010 [facility] [place] [facility] [address] [id number] [place] [address] 13 Mar, 2010 [facility] [place] [facility] [address] [id number] [place] [address] 12 Mar, 2010 [facility] [place] [facility] [address] [id number] [place] [address] Jan, [facility] [place] [facility] [address] [id number] [place] [address] 15 Dec, 2009 [facility] [place] [facility] [address] [id number] [place] [address] Sep, [facility] [place] [facility] [address] [id number], [place] [address] May, [facility] [place] [facility] [address] [id number], [place] [address] May, [facility] [place] [facility] [address] [id number], [place] [address] May, [facility] [place] [facility] [address] [id number], [place] [address] Apr, [facility] [place] [facility] [address] [id number], [place] [address] Apr, [facility] [place] [facility] [address] [id number], [place] [address] Apr, [facility] [place] [facility] [address] [id number], [place] [address] Apr, [facility] [place] [facility] [address] [facility] [id number], [place] [address] Apr, [facility] [place] [facility] [address] [facility] [id number] [place] [address] Mar, [facility] [address] [facility] [id number], [place] [address] Mar, [facility] [address] [facility] [id number], [place] [address] Jul, IMMUNIZATIONS Vaccine Route Administration Date Status PHENERGAN (IM) 25 MG (25 MG/ML) IM Intramuscular December 17, 2017 Administered SOCIAL HISTORY Never Assessed REASON FOR VISIT vomiting everytime she eats , diarrhea , stated she letty't keep anything in the stomach _ _ america velásquez PLAN OF CARE Activity Details Follow Up 2 - 3 Days Reason:diarrhea/vomiting VITAL SIGNS Height 62 in 2017-12-17 Weight 255.0 lbs 2017-12-17 Temperature 97.5 degrees Fahrenheit 2017-12-17 Heart Rate 88 bpm 2017-12-17 Respiratory Rate 18 2017-12-17 BMI 46.64 kg/m2 2017-12-17 Blood pressure systolic 136 mmHg 2017-12-17 Blood pressure diastolic 78 mmHg 2017-12-17 MEDICATIONS Medication Instructions Dosage Frequency Start Date End Date Duration Status Promethazine HCl 25 MG Orally every 6 hrs 1 tablet as needed 6h Dec, Dec, 10 days Active Estradiol 0.5 MG Orally Once a day 2 tablet by Oral route 1 time per day 24h Apr, Active Doxycycline Hyclate 100 MG Orally every 12 hrs 1 capsule 12h Active Ropinirole HCl 4 MG Orally Once a day 1 tablet before bedtime 24h 30 days Active [employer] Syringe 23G X 1 as directed Jul, Not-Taking Ondansetron HCl 8 mg 1 tablet by Oral route every 8 hours PRN Jul, Active Vitamin D 32924 UNIT Orally per day 1 capsule Active Esoterica Regular 2 % Not-Taking Metronidazole 500 mg Orally Twice a day 1 tablet 12h Active Hydrocodone-Acetaminophen 5-325 MG Orally every 6 hrs 1 tablet as needed 6h Active Prozac 40 mg Orally Once a day for depression 1 capsules Active RESULTS No Results PROCEDURES Procedure Date Ordered Result Body Site LAB NOT BILLED BY [facility] December 17, 2017 VENIPUNCT, ROUTINE* December 17, 2017 THER/PROPH/DIAG INJ, SC/IM December 17, 2017 PHENERGAN (IM) 25 MG (25 MG/ML) December 17, 2017 [facility] VISIT ESTABLISHED PATIENT December 17, 2017 INSTRUCTIONS MEDICATIONS ADMINISTERED No Known Medications [...] Surgical History orthopedic surgery-coccyx removal w/ Dr Figueora 08/2013 Surgical History cholecystectomy Surgical History Right knee scope- Dr. Gonzalez 11/2015 Surgical History right knee scope 05/2016 Surgical History abdominal cyst removed Surgical History Ovaries removed Surgical History Ts & As Surgical History ventral incisional hernia repair- Dr. Daniel 08/2017 Surgical History nephrectomy 03/2017 Hospitalization History Cellulitis-[facility] 12/20/15 Hospitalization History [facility]- Abd pain 03/07/2017 Hospitalization History [facility]- Abd pain 03/14/2017 Hospitalization History [facility]- No bowel movement, rash 04/13/2017 Hospitalization History [facility]- Abd pain r/t kidney surgery on 04/17/2017 Hospitalization History [facility]- Abd pain r/t kidney surgery on 04/18/2017 Hospitalization History [facility]- Lower abd pain 04/30/2017 Hospitalization History [facility]- Cannot urinate 05/30/2017 Hospitalization History [facility]- Pancreatitis Sx 06/29/2017 Hospitalization History [facility]- Stomach pain 07/22/2017 Hospitalization History [facility]- Left side pain 08/12/2017 Hospitalization History [facility]- Incision site infection 08/30/2017 Hospitalization History [facility]- Post Op Seroma/Hematoma Left Abdomen. Discharged 09/04/17- Dr Daniel 09/02/2017 Hospitalization History [facility]- Right shoulder and back pain 2017 Hospitalization History [facility]- Shoulder/Back pain 11/11/2017 Hospitalization History [facility]- Right shoulder blade pain 12/04/2017 Hospitalization History [facility]- C-Diff 12/13/2017 Hospitalization History C diff et MRSA 12/27/2017
--- OUTSIDE RECORDS SUMMARY | 2018-02-24 14:27 | XMS REPORT ---
Author Author SAI CARMEN [facility] Address [address] [place] [address] Care Team Providers Care Manager Linux Name Role Phone CARMEN GIBBS Unavailable PROBLEMS Type Condition ICD9-CM Code HUR33-EO Code Onset Dates Condition Status SNOMED Code Problem Polydipsia R63.1 Active 79745132 Problem Trichotillomania F63.3 Active 07742368 Problem Atelectasis J98.11 Active 09416497 Problem Intestinal malabsorption, unspecified K90.9 Active 58055983 Problem Chronic fatigue R53.82 Active 03637113 Problem Generalized social phobia F40.11 Active 47294494 Problem Restless leg syndrome G25.81 Active 23241889 Problem Moderate episode of recurrent major depressive disorder F33.1 Active 792149237 Problem Chronic post-traumatic stress disorder (PTSD) F43.12 Active 382598407 Problem History of renal cell carcinoma Z85.528 Active 277690462 Problem Chronic tension-type headache, intractable G44.221 Active 131325697 Problem Nodule of left lung R91.1 Active 172727306 Problem Hirsuties L68.0 Active 145440297 Problem FH: polycystic ovary Z84.2 Active 655724573 Problem Morbid (severe) obesity due to excess calories E66.01 Active 868725326 Problem Chronic pancreatitis K86.1 Active 282908985 Problem Hyperlipidemia, mixed E78.2 Active 390967114 Problem Asthma J45.909 Active 093481966 ALLERGIES No Information ENCOUNTERS Encounter Location Date Diagnosis [facility] [address] [facility] [id number] [address] Mar, [facility] [id number] [address] 7736 Feb, [facility] [id number] [address] Jan, Acute pain of right knee M25.561 ; Right upper quadrant abdominal pain R10.11 and BMI 45.0-49.9, adult Z68.42 [facility] [id number] [place] [address] 86667- 3836 Jan, [facility] [id number] [place] [address] 25683- 0910 Jan, [facility] [id number] [place] [address] 53157- 8832 Dec, [facility] [id number] [place] [address] 15602- 3229 Dec, Intestinal malabsorption, unspecified K90.9 and Diarrhea, unspecified R19.7 [place] [id number] [place] [address] 08543- 1787 Dec, [facility] [id number] [place] [address] 09740- 5220 Dec, Strep throat J02.0 ; Intestinal malabsorption, unspecified K90.9 ; Diarrhea, unspecified R19.7 ; Postoperative seroma involving digestive system after non-digestive system procedure K91.873 ; Hyperlipidemia, mixed E78.2 and BMI 45.0-49.9, adult Z68.42 [facility] [address] [place] [address] 80374- 2229 Dec, [facility] [id number] [place] [address] 80073- 5051 Dec, Nausea R11.0 [facility] [address] [place] [address] 35638- 9270 Dec, [facility] [id number] [place] [address] 02456 -4666 Dec, Sore throat J02.9 ; Strep throat J02.0 and BMI 45.0-49.9, adult Z68.42 [facility] [id number] [place] [address] 23157- 2394 Dec, [facility] [address] [place] [address] 5263 Dec, [facility] [address] [address] 2426 Dec, [facility] [address] [place] [address]- 2334 Dec, [facility] [address] [address]- 4437 Dec, [facility] [address] [place] [address]- 7742 Dec, [facility] [address] [address]- 8958 Dec, [facility] [address] [address]- 4312 Dec, [facility] [address] [address]- 1824 Dec, Clostridium difficile colitis A04.72 ; Intractable vomiting with nausea, unspecified vomiting type R11.2 and BMI 45.0-49.9, adult Z68.42 [facility] [address] [address]- 5933 Dec, [facility] [address] [address]- 6186 Nov, [facility] [address] [address]- 4189 Nov, [facility] [address] [address]- 2584 Nov, [facility] [address] [address]- 3635 Nov, [facility] [address] [address]4817 Nov, [place] [address] [address]- 8536 Nov, Hyperlipidemia, mixed E78.2 [facility] [id number] [place] [address] 43616 -3688 Nov, Acute suppurative otitis media of right ear without spontaneous rupture of tympanic membrane, recurrence not specified H66.001 and BMI 45.0-49.9, adult Z68.42 [place] [id number] [place] [address] 86936- 1169 Nov, Hyperlipidemia, mixed E78.2 [place] [id number] [place] [address] 05992- 6507 Nov, [place] [id number] [place] [address] 51367- 4244 Nov, [address] [address]- 9881 Nov, Nodule of left lung R91.1 [id number] [place] [address] 17433- 8682 Nov, Medicare annual wellness visit, initial Z00.00 [...] and Encounter for immunization Z23 [id number] [place] [address] 61446- 9436 October, [id number] [place] [address] 92646- 1708 October, Nodule of left lung R91.1 [id number] [place] [address] 80724- 1437 October, Nodule of left lung R91.1 [place] [id number] [place] [address] 04804- 5534 October, Recurrent major depressive disorder, in partial remission F33.41 ; Restless leg syndrome G25.81 ; Generalized social phobia F40.11 ; Chronic post-traumatic stress disorder (PTSD) F43.12 ; BMI 45.0-49.9, adult Z68.42 and Trichotillomania F63.3 [place] [id number] [place] [address] 40853- 3081 October, [place] [id number] [place] [address] 22695- 3802 Sep, Chronic fatigue R53.82 and BMI 45.0-49.9, adult Z68.42 [place] [id number] [place] [address] 73157- 3542 Aug, [place] [id number] [place] [address] 36036- 0089 Jul, Restless leg syndrome G25.81 and B12 deficiency E53.8 [id number] [place] [address] 16014- 0578 Jul, [place] [id number] [place] [address] 06818- 5133 Jul, [place] [id number] [place] [address] 43290- 6688 Jun, [place] [id number] [place] [address] 18227- 0187 Jun, Fatigue, unspecified type R53.83 ; History of renal cell carcinoma Z85.528 ; Chronic pancreatitis K86.1 ; Restless leg syndrome G25.81 ; Dark urine R82.99 and BMI 45.0-49.9, adult Z68.42 [place] [id number] [place] [address] 30601- 7734 Jun, [facility] [address] [id number] [address]- 6063 Jun, [facility] [address] [address]- 7312 Jun, [facility] [id number] [address]- 4332 Jun, [facility] [address] [address]646 May, Chronic post-traumatic stress disorder (PTSD) F43.12 ; Moderate episode of recurrent major depressive disorder F33.1 ; Trichotillomania F63.3 and Generalized social phobia F40.11 [facility] [address] [address]- 0919 May, [facility] [address] [address]- 5802 May, Chronic post-traumatic stress disorder (PTSD) F43.12 ; Moderate episode of recurrent major depressive disorder F33.1 ; Trichotillomania F63.3 and Generalized social phobia F40.11 [facility] [id number] [address]- 1255 May, Hyperlipidemia, mixed E78.2 ; Morbid (severe) obesity due to excess calories E66.01 ; Chronic post-traumatic stress disorder (PTSD) F43.12 ; Moderate episode of recurrent major depressive disorder F33.1 ; Trichotillomania F63.3 and Generalized social phobia F40.11 [facility] [id number] [address]- 3285 Apr, [facility] [address] [address]- 2135 Apr, Hyperlipidemia, mixed E78.2 ; Morbid (severe) obesity due to excess calories E66.01 ; Chronic post-traumatic stress disorder (PTSD) F43.12 ; Moderate episode of recurrent major depressive disorder F33.1 ; Trichotillomania F63.3 and Generalized social phobia F40.11 [facility] [address] [place] [address] 89116- 0453 Apr, Trichotillomania F63.3 ; Generalized social phobia F40.11 ; Chronic post-traumatic stress disorder (PTSD) F43.12 and Moderate episode of recurrent major depressive disorder F33.1 [place] [id number] [place] [address] 52453- 6811 Apr, [facility] [id number] [place] [address] 80398- 8284 Apr, [place] [id number] [place] [address] 37812- 3330 Mar, Moderate episode of recurrent major depressive disorder F33.1 ; Trichotillomania F63.3 ; Chronic post-traumatic stress disorder (PTSD) F43.12 ; Generalized social phobia F40.11 and Restless leg syndrome G25.81 [place] [id number] [place] [address] 65302- 3919 Mar, [place] [address] 34932- 8185 Mar, [place] [id number] [place] [address] 92600- 8155 Feb, Left kidney mass N28.89 [place] [id number] [place] [address] 77808- 7395 Jan, [place] [id number] [place] [address] 30217- 9337 Dec, Polydipsia R63.1 ; Chronic pancreatitis K86.1 and Fatigue, unspecified type R53.83 [facility] [id number] [place] [address] 71202- 6680 Nov, [place] [id number] [place] [address] 08802- 0695 Nov, [place] [id number] [place] [address] 18134- 6149 Nov, Headache around the eyes R51 [facility] [id number] [place] [address] 15771- 6477 Nov, [facility] [id number] [place] [address] 75931- 9640 October, STD exposure Z20.2 [facility] [id number] [place] [address] 25723- 8115 October, STD exposure Z20.2 [facility] [id number] [place] [address] 048053- 7166 October, Chronic post-traumatic stress disorder (PTSD) F43.12 ; Generalized social phobia F40.11 ; Trichotillomania F63.3 and Restless leg syndrome G25.81 [place] [id number] [place] [address] 84767- 3882 October, [facility] [id number] [place] [address] 72819- 7026 Sep, [facility] [id number] [place] [address] 31700- 6482 Aug, [facility] [id number] [place] [address] 28861- 7801 Aug, [place] [id number] [place] [address] 78664- 6605 Aug, Neck mass R22.1 [place] [id number] [place] [address] 19531- 9006 Aug, Atelectasis J98.11 [place] [id number] [place] [address] 82231- 9597 28 Jul, 2016 Hyperlipidemia, mixed E78.2 ; Atypical pneumonia J18.9 and Neck mass R22.1 [place] [id number] [place] [address] 14996- 8078 15 Jul, 2016 Hemoptysis R04.[address] [place] [address] 89586- 9886 08 Jul, 2016 Acute non-recurrent pansinusitis J01.40 ; Hemoptysis R04.2 ; Polydipsia R63.1 and Malaise R53.81 [facility] [id number] [place] [address] 71149 -0887 May, Other viral agents as the cause of diseases classified elsewhere B97.89 and Acute upper respiratory infection, unspecified J06.9 [facility] [id number] [place] [address] 78549 -1468 Mar, Nausea R11.0 [facility] [address] [id number] [place] [address] 92027 -6616 Dec, Hives L50.9 [id number] [place] [address] 61663- 3360 Dec, [facility] [address] [id number] [place] [address] 25247 -5495 Dec, Cutaneous abscess of limb, unspecified L02.419 ; Cellulitis of unspecified part of limb L03.119 ; Encounter for incision and drainage procedure Z01.89 and Encounter for recheck of abscess following incision and drainage Z09 [facility] [address] [place] [address] 44220 -9900 Dec, Abscess of leg, right L02.415 [place] [id number] [place] [address] 94566- 7527 08 Dec, 2015 Cellulitis of unspecified part of limb L03.119 and Cutaneous abscess of limb, unspecified L02.419 [place] [address] [place] [address] 97649- 9322 Dec, [place] [address] [place] [address] 20217- 5244 Dec, [facility] [address] [place] [address] 95887 -4218 Aug, [facility] [id number] [place] [address] 31586- 4894 Aug, [facility] [id number] [place] [address] 24399 -3060 04 Jul, 2015 Pain in unspecified wrist M25.539 and Back pain, thoracic M54.6 [facility] [id number] [place] [address] 66572 -6877 13 Jun, 2015 Strain of right wrist, initial encounter S66.911A [place] [address] 86566- 6601 Jun, Chronic pancreatitis, unspecified pancreatitis type K86.1 ; Hirsuties L68.0 ; Morbid (severe) obesity due to excess calories E66.01 ; Chronic pancreatitis K86.1 and Asthma J45.909 [place] [id number] [place] [address] 51129- 4963 May, [place] [id number] [place] [address] 82002- 8965 May, Hyperlipidemia, mixed E78.2 and Muscle spasm of back M62.830 [place] [id number] [place] [address] 52160- 3199 Apr, [place] [id number] [place] [address] 95847- 6864 Apr, Torticollis M43.6 [place] [id number] [place] [address] 75511- 5850 Apr, Right-sided thoracic back pain M54.6 [place] [id number] [place] [address] 80873- 4546 Mar, Rash R21 [place] [id number] [place] [address] 07839- 8435 Mar, [place] [address] [address]- 1519 Jan, [facility] [id number] [place] [address] 910038- 9168 Dec, [facility] [id number] 4029 Dec, Urinary frequency 788.41 and Nocturia more than twice per night 788.43 [facility] [id number] [place] [address] 53982- 9724 Nov, [facility] [id number] [place] [address] 918202- 5454 Nov, [facility] [id number] [place] [address] 82636- 3531 Nov, Abdominal pain 789.00 [facility] [id number] [place] [address] 58110- 7728 October, TDAP DX V06.1 [facility] [id number] [place] [address] 93109- 0247 October, [facility] [id number] [place] [address] 573493- 7895 October, Disturbance of skin sensation 782.0 ; Wrist pain, right 719.43 ; Hyperlipidemia 272.4 and Skin lesion of face 709.9 [facility] [address] [address]- 7630 Sep, [facility] [address] [address]- 5868 Sep, [facility] [id number] [place] [address] 282646- 6972 Aug, [facility] [address] [address]- 7304 Aug, [facility] [id number] [place] [address] [id number]- 5149 23 Aug, 2014 [facility] [place] [facility] [address] [id number] [place] [address]- 8523 23 Aug, 2014 [facility] [place] [facility] [address] [id number] [place] [address]- 1177 16 Aug, 2014 [facility] [place] [facility] [address] [id number] [place] [address]- 3240 16 Aug, 2014 [facility] [place] [facility] [address] [id number] [place] [address]- 9228 14 Aug, 2014 [facility] [place] [facility] [address] [id number] [place] [address]- 4178 14 Aug, 2014 [facility] [place] [facility] [address] [id number] [place] [address]- 5684 Aug, [facility] [place] [facility] [address] [id number] [place] [address]- 2607 Aug, [facility] [place] [facility] [address] [id number] [place] [address]- 4427 04 Aug, 2014 [facility] [place] [facility] [address] [id number] [place] [address]- 7667 Aug, [facility] [place] [facility] [address] [id number] [place] [address]- 9698 Aug, [facility] [place] [facility] [address] [id number] [place] [address]- 1383 Aug, [facility] [place] [facility] [address] [id number] [address]- 1070 Jul, 2014 [facility] [place] [facility] [address] [id number] [place] [address]- 6081 Jul, 2014 [facility] [place] [facility] [address] [id number] [place] [address]- 0665 Jul, 2014 [facility] [place] [facility] [address] [id number] [place] [address]- 7824 Jul, [facility] [place] [facility] [address] [id number] [place] [address]- 5714 Jul, [facility] [address] [id number] [place] [address]- 7866 Jul, [facility] [address] [id number] [place] [address]- 9880 Jun, [facility] [address] [id number] [place] [address]- 7603 Jun, [facility] [address] [id number] [place] [address]- 1647 Jun, [facility] [address] [id number] [place] [address]- 0379 Jun, [facility] [address] [id number] [place] [address]- 0699 Jun, [facility] [address] [id number] [place] [address]- 7609 Jun, [facility] [address] [id number] [place] [address]- 3655 Jun, [facility] [address] [id number] [place] [address]- 0785 Jun, [facility] [address] [id number] [place] [address]- 7382 May, [facility] [place] [facility] [address] [id number] [place] [address]- 7421 May, [facility] [address] [id number] [place] [address]- 6849 18 May, 2014 [facility] [place] [facility] [address] [id number] [place] [address]- 6012 18 May, 2014 [facility] [place] [facility] [address] [id number] [place] [address]- 7349 15 May, 2014 [facility] [place] [facility] [address] [id number] [place] 8946 May, [facility] [place] [facility] [address] [id number] [place] [address]- 3634 May, [facility] [place] [facility] [address] [id number] [place] [address] May, [facility] [place] [facility] [address] [id number] [place] [address] May, [facility] [place] [facility] [address] [id number] [place] [address] May, [facility] [place] [facility] [address] [id number] [place] [address] May, [facility] [place] [facility] [address] [id number] [place] [address] May, [facility] [place] [facility] [address] [id number] [place] [address] Apr, [facility] [place] [facility] [address] [id number] [place] [address] Apr, [facility] [place] [facility] [address] [id number] [place] [address] Apr, [facility] [place] [facility] [address] [id number] [place] [address] Apr, [facility] [place] [facility] [address] [id number] [place] [address] Apr, [facility] [place] [facility] [address] [id number] [place] [address] Apr, [facility] [place] [facility] [address] [id number] [place] [address] Apr, [facility] [place] [facility] [address] [id number] [place] [address] Apr, [facility] [place] [facility] [address] [id number] [place] [address] Apr, [facility] [place] [facility] [address] [id number] [place] [address] Apr, [facility] [place] [facility] [address] [id number] [place] [address] Apr, [facility] [place] [facility] [address] [id number] [place] [address] Apr, [facility] [place] [facility] [address] [id number] [place] [address] Mar, [facility] [place] [facility] [address] [id number] [place] [address] Mar, [facility] [place] [facility] [address] [id number] [place] [address] Mar, [facility] [place] [facility] [address] [id number] [place] [address] Mar, [facility] [place] [facility] [address] [id number] [place] [address] 10 Feb, 2014 [facility] [place] [facility] [address] [id number] [place] [address] 10 Feb, 2013 [facility] [place] [facility] [address] [id number] [place] [address] 05 Feb, 2013 [facility] [place] [facility] [address] [id number] [place] [address] 05 Feb, 2013 [facility] [place] [facility] [address] [id number] [place] [address] Feb, 2013 [facility] [place] [facility] [address] [id number] [place] [address] Feb, 2013 [facility] [place] [facility] [address] [id number] [place] [address] Jan, [facility] [place] [facility] [address] [id number] [place] [address] Jan, [facility] [place] [facility] [address] [id number] [place] [address] Jan, [facility] [place] [facility] [address] [id number] [facility] [address] Jan, [facility] [place] [facility] [address] [id number] [place] [address] Jan, [facility] [place] [facility] [address] [id number] [place] [address] Jan, [facility] [place] [facility] [address] [id number] [place] [address] Jan, [facility] [place] [facility] [address] [id number] [place] [address] Jan, [facility] [place] [facility] [address] [id number] [place] [address] Jan, [facility] [place] [facility] [address] [id number] [place] [address] 7[address] Jan, [facility] [place] [facility] [address] [id number] [place] [address] Jan, [facility] [place] [facility] [address] [id number] [place] [address] 4[address] Jan, [facility] [place] [facility] [address] [id number] [place] [address]- 1217 Jan, [facility] [place] [facility] [address] [id number] [place] [address]- 7670 Jan, [facility] [place] [facility] [address] [id number] [place] [address]- 6330 Dec, [facility] [place] [facility] [address] [id number] [place] [address] 3944 Dec, [facility] [place] [facility] [address] [id number] [place] [address]- 5953 Dec, [facility] [place] [facility] [address] [id number] [place] [address] Dec, [facility] [place] [facility] [address] [id number] [place] [address]- 1778 Nov, [facility] [place] [facility] [address] [id number] [place] [address]- 2559 Nov, [facility] [place] [facility] [address] [id number] [place] [address]- 2259 Nov, [facility] [place] [facility] [address] [id number] [place] [address]- 7065 Nov, [facility] [place] [facility] [address] [id number] [place] [address]- 8186 Nov, [facility] [place] [facility] [address] [id number] [place] [address]- 4318 October, [facility] [place] [facility] [address] [id number] [place] [address]- 9738 October, [facility] [place] [facility] [address] [id number] [place] [address]- 2651 October, [facility] [place] [facility] [address] [id number] [place] [address]- 3132 October, [facility] [place] [facility] [address] [id number] [place] [address]- 5174 October, [facility] [place] [facility] [address] [id number] [place] [address]- 4861 October, [facility] [place] [facility] [address] [id number] [place] [address]- 1297 October, [facility] [place] [facility] [address] [id number] [place] [address]- 6715 October, [facility] [place] [facility] [address] [id number] [place] [address]- 3750 October, [facility] [place] [facility] [address] [id number] [place] [address]- 7876 October, [facility] [place] [facility] [address] [id number] [place] [address]- 5171 October, [facility] [place] [facility] [address] [id number] [place] [address]- 5253 October, [facility] [place] [facility] [address] [id number] [place] [address]- 8323 October, [facility] [place] [facility] [address] [id number] [place] [address]- 3191 October, [facility] [place] [facility] [address] [id number] [place] [address]- 6147 Sep, [facility] [place] [facility] [address] [id number] [place] [address]- 1172 Sep, [facility] [place] [facility] [address] [id number] [place] [address]- 2578 Sep, [facility] [place] [facility] [address] [id number] [place] [address]- 4902 Sep, [facility] [place] [facility] [address] [id number] [place] [address]- 7707 Sep, [facility] [place] [facility] [address] [id number] [place] [address]- 1461 Sep, [facility] [place] [facility] [address] [id number] [place] [address]- 6974 Sep, [facility] [place] [facility] [address] [id number] [place] [address]- 5189 Sep, [facility] [place] [facility] [address] [id number] [place] [address]- 0856 Sep, [facility] [place] [facility] [address] [id number] [place] [address]- 7243 Sep, [facility] [place] [facility] [address] [id number] [place] [address]- 0929 Sep, [facility] [place] [facility] [address] [id number] [place] [address]- 8773 Sep, [facility] [place] [facility] [address] [id number] [place] [address]- 4426 Sep, [facility] [place] [facility] [address] [id number] [place] [address]- 2615 Sep, [facility] [place] [facility] [address] [id number] [place] [address]- 3259 Sep, [facility] [place] [facility] [address] [id number] [place] [address]- 5925 Aug, [facility] [place] [facility] [address] [id number] [place] [address]- 7565 Aug, [facility] [place] [facility] [address] [id number] [place] [address]- 7194 Aug, [facility] [place] [facility] [address] [id number] [place] [address]- 2224 Aug, [facility] [place] [facility] [address] [id number] [place] [address]- 0956 Jul, [facility] [place] [facility] [address] [id number] [place] [address]- 8585 Jul, [facility] [place] [facility] [address] [id number] [place] [address]- 7098 Jul, [facility] [place] [facility] [address] [id number] [place] [address]- 8808 Jul, [facility] [place] [facility] [address] [id number] [place] [address]- 7384 Jun, [facility] [place] [facility] [address] [id number] [place] [address]- 1380 Jun, [facility] [place] [facility] [address] [id number] [place] [address]- 8986 Jun, [facility] [place] [facility] [address] [id number] [place] [address]- 9322 Jun, [facility] [place] [facility] [address] [id number] [place] [address]- 4391 Jun, [facility] [place] [facility] [address] [id number] [place] [address]- 0397 10 Jun, 2013 [facility] [address] [id number] [place] [address] Jun, [facility] [place] [facility] [address] [id number] [place] [address]- 7768 08 Jun, 2013 [facility] [address] [id number] [place] [address]- 8463 20 May, 2013 [facility] [place] [facility] [address] [id number] [place] [address]- 6967 20 May, 2013 [facility] [address] [id number] [place] [address]- 7082 18 May, 2013 [facility] [place] [facility] [address] [id number] [place] [address]- 5874 18 May, 2013 [facility] [address] [id number] [place] [address]- 7489 17 May, 2013 [facility] [address] [facility] [id number] [place] [id number] 17 May, 2013 [facility] [place] [facility] [address] [id number] [place] [address]- 5775 17 May, 2013 [facility] [place] [facility] [address] [id number] [place] [address]- 6919 17 May, 2013 [facility] [place] [facility] [address] [id number] [place] [address]- 6167 16 May, 2013 [facility] [place] [facility] [address] [id number] [place] [address]- 4976 16 May, 2013 [facility] [place] [facility] [address] [id number] [place] [address]- 0947 14 May, 2013 [facility] [place] [facility] [address] [id number] [place] [address]- 0901 14 May, 2013 [facility] [place] [facility] [address] [id number] [place] [address]- 0784 13 May, 2013 [facility] [place] [facility] [address] [id number] [place] [address]- 3525 13 May, 2013 [facility] [address] [id number] [place] [address]- 0908 May, [facility] [place] [facility] [address] [id number] [place] [address]- 2284 May, [facility] [address] [id number] [place] [address]- 5040 May, [facility] [place] [facility] [address] [id number] [place] [address]- 4547 May, [facility] [address] [id number] [place] [address]- 0749 Apr, [facility] [place] [facility] [address] [id number] [place] [address]- 3475 Apr, [facility] [place] [facility] [address] [id number] [place] [address]- 9221 Apr, [facility] [address] [id number] [place] [address]- 8624 Apr, [facility] [place] [facility] [address] [id number] [place] [address]- 8017 Aug, [facility] [address] [id number] [place] [address]- 3921 Aug, [facility] [place] [facility] [address] [id number] [place] [address]- 5529 Aug, [facility] [place] [facility] [address] [id number] [place] [address]- 1170 05 Aug, 2012 [facility] [place] [facility] [address] [id number] [place] [address]- 7812 04 Jul, 2012 [facility] [place] [facility] [address] [id number] [place] [address]- 1400 Jun, [facility] [place] [facility] [address] [id number] [place] [address]- 0378 Jun, [facility] [address] [id number] [place] [address]- 9395 Jun, [facility] [place] [facility] [address] [id number] [place] [address]- 0839 Jun, [facility] [place] [facility] [address] [facility] [id number] [place] [address] May, [facility] [place] [facility] [address] [id number] [place] [address]- 5490 May, [facility] [place] [facility] [address] [id number] [place] [address]- 0394 May, [facility] [place] [facility] [address] [id number] [place] [address]- 5293 May, [facility] [place] [facility] [address] [id number] [place] [address]- 0784 May, [facility] [place] [facility] [address] [id number] [place] [address]- 3935 May, [facility] [place] [facility] [address] [id number] [place] [address]- 9745 May, [facility] [place] [facility] [address] [id number] [place] [address]- 8604 Apr, [facility] [place] [facility] [address] [id number] [address]- 1555 Apr, [facility] [place] [facility] [address] [id number] [address]- 2889 Apr, [facility] [place] [facility] [address] [id number] [place] [address]- 9192 Apr, [facility] [place] [facility] [address] [id number] [place] [address]- 3989 Apr, [facility] [place] [facility] [address] [facility] [id number] [place] [address]- 1053 Apr, [facility] [place] [facility] [address] [id number] [place] [address]- 1200 Apr, [facility] [place] [facility] [address] [id number] [place] [address]- 0054 Mar, 2011 [facility] [place] [facility] [address] [id number] [place] [address]139 Mar, [facility] [place] [facility] [address] [id number] [place] [address]- 1655 Mar, [facility] [place] [facility] [address] [id number] [place] [address]- 4887 Mar, [facility] [place] [facility] [address] [id number] [place] [address] Mar, [facility] [place] [facility] [address] [id number] [place] [address]- 0753 Mar, [facility] [place] [facility] [address] [id number] [place] [address]- 1417 Mar, [facility] [place] [facility] [address] [id number] [place] [address]- 4868 Mar, [facility] [place] [facility] [address] [id number] [place] [address]- 0410 Mar, [facility] [place] [facility] [address] [facility] [id number] [place] [address]- 4251 15 Mar, 2012 [facility] [place] [facility] [address] [id number] [place] [address]- 1169 Mar, [facility] [place] [facility] [address] [id number] [place] [address]- 2870 Mar, [facility] [place] [facility] [address] [id number] [place] [address]- 4720 06 Feb, 2012 [facility] [place] [facility] [address] [id number] [place] [address]- 5553 Jan, [facility] [place] [facility] [address] [id number] [place] [address]- 0754 Jan, [facility] [place] [facility] [address] [id number] [place] [address]- 4162 Jan, [facility] [place] [facility] [address] [id number] [place] [address]- 3039 Jan, [facility] [place] [facility] [address] [id number] [place] [address]- 4799 Jan, [facility] [place] [facility] [address] [id number] [place] [address]- 7274 Dec, [facility] [address] [id number] [place] [address]- 7320 Dec, [facility] [place] [facility] [address] [id number] [place] [address]- 1473 Nov, [facility] [address] [id number] [place] [address]- 2879 Nov, [facility] [address] [id number] [place] [address]- 9786 Nov, [facility] [place] [facility] [address] [id number] [place] [address]- 4956 October, [facility] [address] [id number] [place] [address]- 9824 October, [facility] [place] [facility] [address] [id number] [place] [address]- 9568 October, [facility] [place] [facility] [address] [id number] [place] [address]- 9781 October, [facility] [place] [facility] [address] [id number] [place] [address]- 7327 October, [facility] [place] [facility] [address] [id number] [place] [address]- 2798 October, [facility] [place] [facility] [address] [id number] [place] [address]- 5560 October, [facility] [place] [facility] [address] [id number] [place] [address]- 3797 26 Sep, 2011 [facility] [place] [facility] [address] [id number] [place] [address]- 2106 26 Sep, 2011 [facility] [place] [facility] [address] [id number] [place] [address]- 6336 26 Sep, 2011 [facility] [place] [facility] [address] [id number] [place] [address]- 4491 25 Sep, 2011 [facility] [place] [facility] [address] [id number] [place] [address]- 8192 24 Sep, 2011 [facility] [place] [facility] [address] [id number] [place] [address]- 7146 19 Sep, 2011 [facility] [place] [facility] [address] [id number] [place] [address]- 2063 17 Sep, 2011 [facility] [place] [facility] [address] [id number] [place] [address]- 2745 16 Sep, 2011 [facility] [place] [facility] [address] [id number] [place] [address]- 7555 16 Sep, 2011 [facility] [place] [facility] [address] [id number] [place] [address]- 3885 14 Sep, 2011 [facility] [place] [facility] [address] [id number] [place] [address]- 5685 13 Sep, 2011 [facility] [place] [facility] [address] [id number] [place] [address]- 5446 10 Sep, 2011 [facility] [place] [facility] [address] [id number] [place] [address]- 4106 09 Sep, 2011 [facility] [place] [facility] [address] [id number] [place] [address]- 6215 27 Aug, 2011 [facility] [place] [facility] [address] [id number] [place] [address]- 5618 12 Aug, 2011 [facility] [place] [facility] [address] [id number] [place] [address]- 6571 08 Aug, 2011 [facility] [place] [facility] [address] [id number] [place] [address]- 0784 Aug, [facility] [place] [facility] [address] [id number] [place] [address]- 1416 28 Jul, 2011 [facility] [place] [facility] [address] [id number] [place] [address]- 0026 22 Jul, 2011 [facility] [place] [facility] [address] [id number] [place] [address]- 2796 16 Jul, 2011 [facility] [place] [facility] [address] [id number] [place] [address] 2546 15 Jul, 2011 [facility] [place] [facility] [address] [id number] [place] [address]- 9546 14 Jul, 2011 [facility] [place] [facility] [address] [id number] [place] [address]- 9944 10 Jul, 2011 [facility] [place] [facility] [address] [id number] [place] [address]- 8349 Jun, [facility] [place] [facility] [address] [id number] [place] [address]- 1767 Jun, [facility] [place] [facility] [address] [id number] [place] [address]- 9405 Jun, [facility] [place] [facility] [address] [id number] [place] [address]- 5144 Jun, [facility] [place] [facility] [address] [id number] [place] [address]- 8016 Jun, [facility] [place] [facility] [address] [id number] [place] [address]- 4010 May, [facility] [place] [facility] [address] [id number] [place] [address] 2546 May, [facility] [place] [facility] [address] [id number] [place] [address]- 4657 May, [facility] [place] [facility] [address] [id number] [place] [address]- 9718 14 May, 2011 [facility] [place] [facility] [address] [id number] [place] [address]- 8348 12 May, 2011 [facility] [place] [facility] [address] [id number] [place] [address]- 8877 May, [facility] [place] [facility] [address] [id number] [place] [address]- 5390 May, [facility] [place] [facility] [address] [id number] [place] [address]- 7983 Apr, [facility] [place] [facility] [address] [id number] [place] [address]- 2763 Apr, [facility] [place] [facility] [address] [id number] [place] [address]- 8491 Apr, [facility] [place] [facility] [address] [id number] [place] [address]- 2239 Apr, [facility] [place] [facility] [address] [id number] [place] [address]- 3276 Apr, [facility] [place] [facility] [address] [id number] [place] [address]- 0600 Apr, [facility] [place] [facility] [address] [id number] [place] [address]- 4299 Mar, [facility] [place] [facility] [address] [id number] [place] [address]- 2201 Mar, [facility] [place] [facility] [address] [id number] [place] [address]- 1888 Mar, [facility] [place] [facility] [address] [id number] [place] [address]- 4158 Mar, [facility] [place] [facility] [address] [id number] [address]- 6793 Jan, [facility] [place] [facility] [address] [id number] [place] [address]- 7016 Dec, [facility] [place] [facility] [address] [id number] [place] [address]- 4084 13 Dec, 2010 [facility] [address] [id number] [place] [address]- 5836 11 Oct, 2010 [facility] [place] [facility] [address] [id number] [place] [address] 2546 20 Sep, 2010 [facility] [address] [id number] [place] [address]- 9836 14 Sep, 2010 [facility] [address] [id number] [place] [address] 2546 17 Jul, 2010 [facility] [address] [id number] [place] [address], [place] [address]- 0256 16 Jul, 2010 [facility] [address] [id number] [place] [address]- 9212 31 May, 2010 [facility] [address] [id number] [place] [address] 2549 May, [facility] [address] [id number] [place] [address]- 4328 08 May, 2010 [facility] [address] [id number] [place] [address]- 1299 May, [facility] [address] [id number] [place] [address] Apr, [facility] [place] [facility] [address] [id number] [place] [address] 2540 Apr, [facility] [address] [id number] [place] [address] Apr, [facility] [place] [facility] [address] [id number] [place] [address] Apr, [facility] [place] [facility] [address] [id number] [place] [address]48 Apr, [facility] [address] [id number] [place] [address] Mar, [facility] [place] [facility] [address] [id number] [place] [address] 14 Mar, 2010 [facility] [place] [facility] [address] [id number] [place] [address] 13 Mar, 2010 [facility] [place] [facility] [address] [id number] [place] [address] 12 Mar, 2010 [facility] [place] [facility] [address] [id number] [place] [address] 20 Jan, 2010 [facility] [place] [facility] [address] [id number] [place] [address] 15 Dec, 2009 [facility] [place] [facility] [address] [id number] [address] 10 Sep, 2009 [facility] [place] [facility] [address] [facility] [id number] [place] [address] 08 May, 2009 [facility] [place] [facility] [address] [id number] [address] 06 May, 2009 [facility] [place] [facility] [address] [id number] [place] [address] May, [facility] [place] [facility] [address] [facility] [id number] [place] [address] 17 Apr, 2009 [facility] [place] [facility] [address] [id number] [place] [address] 17 Apr, 2009 [facility] [place] [facility] [address] [id number] [place] [address] 10 Apr, 2009 [facility] [place] [facility] [address] [id number] [place] [address] 10 Apr, 2009 [facility] [place] [facility] [address] [id number] [place] [address] 09 Apr, 2009 [facility] [place] [facility] [address] [facility] [id number] [place] [address] 15 Mar, 2009 [facility] [place] [facility] [address] [id number] [place] [address] Mar, [facility] [address] [facility] [id number] [place] [address] Jul, IMMUNIZATIONS No Known Immunizations SOCIAL HISTORY [...] [facility] 12/20/15 Hospitalization History [facility] [place]- Abd pain 03/07/2017 Hospitalization History [facility] [place]- Abd pain 03/14/2017 Hospitalization History [facility] [place]- No bowel movement, rash 04/13/2017 Hospitalization History [facility] [place]- Abd pain r/t kidney surgery on 04/17/2017 Hospitalization History [facility] [place]- Abd pain r/t kidney surgery on 04/18/2017 Hospitalization History [facility] [place]- Lower abd pain 04/30/2017 Hospitalization History [facility] [place]- Cannot urinate 05/30/2017 Hospitalization History [facility] [place]- Pancreatitis Sx 06/29/2017 Hospitalization History [facility] [place]- Stomach pain 07/22/2017 Hospitalization History [facility] [place]- Left side pain 08/12/2017 Hospitalization History [facility] [place]- Incision site infection 08/30/2017 Hospitalization History [facility]- Post Op Seroma/Hematoma Left Abdomen. Discharged 09/04/17- Dr Daniel 09/02/2017 Hospitalization History [facility] [place]- Right shoulder and back pain 2017 Hospitalization History [facility] [place]- Shoulder/Back pain 11/11/2017 Hospitalization History [facility] [place]- Right shoulder blade pain 12/04/2017 Hospitalization History [facility]- C-Diff 12/13/2017 Hospitalization History C diff et MRSA 12/27/2017
--- OUTSIDE RECORDS SUMMARY | 2018-02-24 14:28 | XMS REPORT ---
Author Author SAI CARMEN [facility] Address [address] [place] [address] Care Team Providers Care Logging Supervisor Name Role Phone CARMEN GIBBS Unavailable PROBLEMS Type Condition ICD9-CM Code NMU04-ND Code Onset Dates Condition Status SNOMED Code Problem Polydipsia R63.1 Active 76530881 Problem Trichotillomania F63.3 Active 07340622 Problem Atelectasis J98.11 Active 00929853 Problem Intestinal malabsorption, unspecified K90.9 Active 54422868 Problem Chronic fatigue R53.82 Active 23033050 Problem Generalized social phobia F40.11 Active 65930859 Problem Restless leg syndrome G25.81 Active 13181489 Problem Moderate episode of recurrent major depressive disorder F33.1 Active 554262207 Problem Chronic post-traumatic stress disorder (PTSD) F43.12 Active 710510728 Problem History of renal cell carcinoma Z85.528 Active 386419638 Problem Chronic tension-type headache, intractable G44.221 Active 947457328 Problem Nodule of left lung R91.1 Active 081247504 Problem Hirsuties L68.0 Active 647408443 Problem FH: polycystic ovary Z84.2 Active 554742814 Problem Morbid (severe) obesity due to excess calories E66.01 Active 870334474 Problem Chronic pancreatitis K86.1 Active 349779955 Problem Hyperlipidemia, mixed E78.2 Active 719250114 Problem Asthma J45.909 Active 951244185 ALLERGIES No Information ENCOUNTERS Encounter Location Date Diagnosis [facility] [address] [facility] [id number] [address] Mar, [facility] [address] [id number], [place] [address] Feb, [facility] [address] [id number] [address] Jan, Acute pain of right knee M25.561 ; Right upper quadrant abdominal pain R10.11 and BMI 45.0-49.9, adult Z68.42 [facility] [id number] [place] [address] 51058- 0183 Jan, [facility] [id number] [place] [address] 25688- 9385 Jan, [facility] [id number] [place] [address] 56222- 1754 Dec, [facility] [id number] [place] [address] 68828- 7132 Dec, Intestinal malabsorption, unspecified K90.9 and Diarrhea, unspecified R19.7 [place] [id number] [place] [address] 28792- 6905 Dec, [facility] [id number] [place] [address] 12084- 9261 Dec, Strep throat J02.0 ; Intestinal malabsorption, unspecified K90.9 ; Diarrhea, unspecified R19.7 ; Postoperative seroma involving digestive system after non-digestive system procedure K91.873 ; Hyperlipidemia, mixed E78.2 and BMI 45.0-49.9, adult Z68.42 [facility] [address] [place] [address] 89241- 2879 Dec, [facility] [id number] [place] [address] 31616- 6130 Dec, Nausea R11.0 [facility] [address] [place] [address] 20551- 1006 Dec, [facility] [id number] [place] [address] 30361 -5412 Dec, Sore throat J02.9 ; Strep throat J02.0 and BMI 45.0-49.9, adult Z68.42 [facility] [id number] [place] [address] 70145- 9516 Dec, [facility] [address] [place] [address] 9972 Dec, [facility] [address], [place] [address] 7536 Dec, [facility] [address] [place] [address] 4804 Dec, [facility] [address], [place] [address] 3490 Dec, [facility] [address] [place] [address] 9263 Dec, [facility] [address], [place] [address] 6838 Dec, [facility] [address], [place] [address] 1984 Dec, [facility] [address], [place] [address] 7879 Dec, Clostridium difficile colitis A04.72 ; Intractable vomiting with nausea, unspecified vomiting type R11.2 and BMI 45.0-49.9, adult Z68.42 [facility] [address], [place] [address] 0324 Dec, [facility] [address], [place] [address] 2089 Nov, [facility] [address], [place] [address]- 2579 Nov, [facility] [address], [place] [address]- 2163 Nov, [facility] [address], [place] [address] 6171 Nov, [facility] [address], [place] [address] Nov, [place] [address], [place] [address]- 7604 Nov, Hyperlipidemia, mixed E78.2 [facility] [id number] [place] [address] 86671 -2786 Nov, Acute suppurative otitis media of right ear without spontaneous rupture of tympanic membrane, recurrence not specified H66.001 and BMI 45.0-49.9, adult Z68.42 [facility] [place] [id number] [place] [address] 68946- 5029 Nov, Hyperlipidemia, mixed E78.2 [facility] [id number] [place] [address] 22503- 7726 Nov, [facility] [id number] [place] [address] 54345- 4613 Nov, [address] [address]- 8940 Nov, Nodule of left lung R91.1 [place] [id number] [place] [address] 19622- 7474 Nov, Medicare annual wellness visit, initial Z00.00 [...] adult Z68.42 and Encounter for immunization Z23 [id number] [place] [address] 54099- 2468 October, [place] [id number] [place] [address] 41786- 9704 October, Nodule of left lung R91.1 [place] [id number] [place] [address] 35773- 7060 October, Nodule of left lung R91.1 [place] [id number] [place] [address] 06151- 5685 October, Recurrent major depressive disorder, in partial remission F33.41 ; Restless leg syndrome G25.81 ; Generalized social phobia F40.11 ; Chronic post-traumatic stress disorder (PTSD) F43.12 ; BMI 45.0-49.9, adult Z68.42 and Trichotillomania F63.3 [place] [id number] [place] [address] 33323- 8175 October, [place] [id number] [place] [address] 34629- 7823 Sep, Chronic fatigue R53.82 and BMI 45.0-49.9, adult Z68.42 [place] [id number] [place] [address] 50795- 0189 Aug, [place] [id number] [place] [address] 51406- 6738 Jul, Restless leg syndrome G25.81 and B12 deficiency E53.8 [place] [id number] [place] [address] 82041- 7051 Jul, [place] [id number] [place] [address] 07956- 8896 Jul, [place] [id number] [place] [address] 20771- 6221 Jun, [place] [id number] [place] [address] 70280- 0949 Jun, Fatigue, unspecified type R53.83 ; History of renal cell carcinoma Z85.528 ; Chronic pancreatitis K86.1 ; Restless leg syndrome G25.81 ; Dark urine R82.99 and BMI 45.0-49.9, adult Z68.42 [place] [id number] [place] [address] 87062- 5217 Jun, [facility] [id number], [place] [address]- 3524 Jun, [facility] [address], [place] [address] Jun, [facility] [id number], [place] [address]- 3915 Jun, [facility] [address] [address] May, Chronic post-traumatic stress disorder (PTSD) F43.12 ; Moderate episode of recurrent major depressive disorder F33.1 ; Trichotillomania F63.3 and Generalized social phobia F40.11 [facility] [address], [place] [address]- 5637 May, [facility] [address], [place] [address]- 1366 May, Chronic post-traumatic stress disorder (PTSD) F43.12 ; Moderate episode of recurrent major depressive disorder F33.1 ; Trichotillomania F63.3 and Generalized social phobia F40.11 [facility] [id number], [place] [address]- 4997 May, Hyperlipidemia, mixed E78.2 ; Morbid (severe) obesity due to excess calories E66.01 ; Chronic post-traumatic stress disorder (PTSD) F43.12 ; Moderate episode of recurrent major depressive disorder F33.1 ; Trichotillomania F63.3 and Generalized social phobia F40.11 [facility] [id number], [place] [address]- 9238 Apr, [facility] [address], [place] [address]- 4208 Apr, Hyperlipidemia, mixed E78.2 ; Morbid (severe) obesity due to excess calories E66.01 ; Chronic post-traumatic stress disorder (PTSD) F43.12 ; Moderate episode of recurrent major depressive disorder F33.1 ; Trichotillomania F63.3 and Generalized social phobia F40.11 [facility] [address] [place] [address] 54957- 1825 Apr, Trichotillomania F63.3 ; Generalized social phobia F40.11 ; Chronic post-traumatic stress disorder (PTSD) F43.12 and Moderate episode of recurrent major depressive disorder F33.1 [place] [id number] [place] [address] 58039- 0116 Apr, [facility] [id number] [place] [address] 76902- 3097 Apr, [place] [id number] [place] [address] 32770- 3368 Mar, Moderate episode of recurrent major depressive disorder F33.1 ; Trichotillomania F63.3 ; Chronic post-traumatic stress disorder (PTSD) F43.12 ; Generalized social phobia F40.11 and Restless leg syndrome G25.81 [place] [id number] [place] [address] 44071- 8110 Mar, [place] [address] 81460- 3081 Mar, [place] [id number] [place] [address] 69541- 3830 Feb, Left kidney mass N28.89 [place] [id number] [place] [address] 10695- 1038 Jan, [place] [id number] [place] [address] 55148- 8838 Dec, Polydipsia R63.1 ; Chronic pancreatitis K86.1 and Fatigue, unspecified type R53.83 [facility] [id number] [place] [address] 61802- 9390 Nov, [place] [id number] [place] [address] 97896- 6059 Nov, [address] [id number] [place] [address] 30077- 6737 Nov, Headache around the eyes R51 [facility] [id number] [place] [address] 04939- 8048 Nov, [facility] [id number] [place] [address] 39672- 2445 October, STD exposure Z20.2 [facility] [id number] [place] [address] 89528- 4459 October, STD exposure Z20.2 [facility] [id number] [place] [address] 813598- 9612 October, Chronic post-traumatic stress disorder (PTSD) F43.12 ; Generalized social phobia F40.11 ; Trichotillomania F63.3 and Restless leg syndrome G25.81 [place] [address] [place] [address] 41784- 0695 October, [facility] [id number] [place] [address] 95984- 0124 Sep, [facility] [id number] [place] [address] 78650- 6254 Aug, [facility] [id number] [place] [address] 76361- 2655 Aug, [place] [address] [place] [address] 65539- 5207 Aug, Neck mass R22.1 [place] [address] [place] [address] 95279- 2817 Aug, Atelectasis J98.11 [place] [address] [place] [address] 98391- 4075 28 Jul, 2016 Hyperlipidemia, mixed E78.2 ; Atypical pneumonia J18.9 and Neck mass R22.1 [place] [address] [place] [address] 15542- 3237 15 Jul, 2016 Hemoptysis R04.[address] [place] [address] 30877- 3140 08 Jul, 2016 Acute non-recurrent pansinusitis J01.40 ; Hemoptysis R04.2 ; Polydipsia R63.1 and Malaise R53.81 [facility] [id number] [place] [address] 60707 -5904 May, Other viral agents as the cause of diseases classified elsewhere B97.89 and Acute upper respiratory infection, unspecified J06.9 [facility] [id number] [place] [address] 23584 -6812 Mar, Nausea R11.0 [facility] [id number] [place] [address] 52297 -5125 Dec, Hives L50.9 [place] [id number] [place] [address] 60030- 4222 Dec, [facility] [id number] [place] [address] 92562 -5899 Dec, Cutaneous abscess of limb, unspecified L02.419 ; Cellulitis of unspecified part of limb L03.119 ; Encounter for incision and drainage procedure Z01.89 and Encounter for recheck of abscess following incision and drainage Z09 [facility] [address] [place] [address] 78255 -3132 Dec, Abscess of leg, right L02.415 [place] [id number] [place] [address] 46251- 0206 08 Dec, 2015 Cellulitis of unspecified part of limb L03.119 and Cutaneous abscess of limb, unspecified L02.419 [place] [address] [place] [address] 59644- 9128 Dec, [address] [address] [place] [address] 12566- 7971 Dec, [facility] [address] [place] [address] 90076 -8968 Aug, [facility] [id number] [place] [address] 33517- 2497 Aug, [facility] [id number] [place] [address] 51124 -8990 04 Jul, 2015 Pain in unspecified wrist M25.539 and Back pain, thoracic M54.6 [facility] [address] [place] [address] 13598 -4996 13 Jun, 2015 Strain of right wrist, initial encounter S66.911A [place] [address] 39294- 4612 Jun, Chronic pancreatitis, unspecified pancreatitis type K86.1 ; Hirsuties L68.0 ; Morbid (severe) obesity due to excess calories E66.01 ; Chronic pancreatitis K86.1 and Asthma J45.909 [place] [address] [place] [address] 61040- 5140 May, [place] [address] [place] [address] 67515- 0953 May, Hyperlipidemia, mixed E78.2 and Muscle spasm of back M62.830 [place] [address] [place] [address] 62274- 6681 Apr, [place] [address] [place] [address] 24546- 5840 Apr, Torticollis M43.6 [place] [address] [place] [address] 44868- 1680 Apr, Right-sided thoracic back pain M54.6 [place] [address] [place] [address] 69865- 4854 Mar, Rash R21 [place] [address] [place] [address] 56310- 4804 Mar, [place] [address], [place] [address]- 3538 Jan, [facility] [id number] [place] [address] 891017- 5704 Dec, [facility] [address] 7094 Dec, Urinary frequency 788.41 and Nocturia more than twice per night 788.43 [facility] [id number] [place] [address] 11330- 0086 Nov, [facility] [id number] [place] [address] 685561- 0477 Nov, [facility] [id number] [place] [address] 07837- 4958 Nov, Abdominal pain 789.00 [facility] [id number] [place] [address] 65892- 1323 October, TDAP DX V06.1 [facility] [id number] [place] [address] 45558- 0861 October, [facility] [id number] [place] [address] 738656- 6967 October, Disturbance of skin sensation 782.0 ; Wrist pain, right 719.43 ; Hyperlipidemia 272.4 and Skin lesion of face 709.9 [facility] [address], [place] [address]- 6292 Sep, [facility] [address], [place] [address]- 2751 Sep, [facility] [id number] [place] [address] 331741- 8135 Aug, [facility] [address], [place] [address]- 7076 Aug, [facility] [id number] [place] [address] 46342450- 1056 23 Aug, 2014 [facility] [place] [facility] [address] [id number] [place] [address]- 6003 23 Aug, 2014 [facility] [place] [facility] [address] [id number] [place] [address]- 3079 16 Aug, 2014 [facility] [place] [facility] [address] [id number] [place] [address]- 1132 16 Aug, 2014 [facility] [place] [facility] [address] [id number] [place] [address]- 0276 14 Aug, 2014 [facility] [place] [facility] [address] [id number] [place] [address]- 1688 14 Aug, 2014 [facility] [place] [facility] [address] [id number] [place] [address]- 9405 Aug, [facility] [place] [facility] [address] [id number] [place] [address]- 8447 Aug, [facility] [place] [facility] [address] [id number] [place] [address]- 2407 04 Aug, 2014 [facility] [place] [facility] [address] [id number] [place] [address]- 3136 Aug, [facility] [place] [facility] [address] [id number] [place] [address]- 1684 Aug, [facility] [place] [facility] [address] [id number] [place] [address]- 8408 Aug, [facility] [place] [facility] [address] [id number] [address]- 6485 Jul, 2014 [facility] [place] [facility] [address] [id number] [place] [address]- 1042 Jul, 2014 [facility] [place] [facility] [address] [id number] [place] [address]- 7082 Jul, 2014 [facility] [place] [facility] [address] [id number] [place] [address]- 5743 Jul, [facility] [place] [facility] [address] [id number] [place] [address]- 4187 Jul, [facility] [address] [id number] [place] [address]- 0155 Jul, [facility] [address] [id number] [place] [address]- 3582 Jun, [facility] [address] [id number] [place] [address]- 3488 Jun, [facility] [address] [id number] [place] [address]- 3508 Jun, [facility] [address] [id number] [place] [address]- 8466 Jun, [facility] [address] [id number] [place] [address]- 9887 Jun, [facility] [address] [id number] [place] [address]- 6717 Jun, [facility] [address] [id number] [place] [address]- 1674 Jun, [facility] [address] [id number] [place] [address]- 4464 Jun, [facility] [address] [id number] [place] [address]- 0409 May, [facility] [place] [facility] [address] [id number] [place] [address]- 7798 May, [facility] [address] [id number] [place] [address]- 4074 18 May, 2014 [facility] [place] [facility] [address] [id number] [place] [address]- 5114 18 May, 2014 [facility] [place] [facility] [address] [id number] [place] [address]- 9426 15 May, 2014 [facility] [place] [facility] [address] [id number] [place] 8923 May, [facility] [place] [facility] [address] [id number] [place] [address] May, [facility] [place] [facility] [address] [id number] [place] [address] May, [facility] [place] [facility] [address] [id number] [place] [address] May, [facility] [place] [facility] [address] [id number] [place] [address] May, [facility] [place] [facility] [address] [id number] [place] [address] May, [facility] [place] [facility] [address] [id number] [place] [address] May, [facility] [place] [facility] [address] [id number] [place] [address] Apr, [facility] [place] [facility] [address] [id number] [place] [address] Apr, [facility] [place] [facility] [address] [id number] [place] [address] Apr, [facility] [place] [facility] [address] [id number] [place] [address] Apr, [facility] [place] [facility] [address] [id number] [place] [address] Apr, [facility] [place] [facility] [address] [id number] [place] [address] Apr, [facility] [place] [facility] [address] [id number] [place] [address] Apr, [facility] [place] [facility] [address] [id number] [place] [address] Apr, [facility] [place] [facility] [address] [id number] [place] [address] Apr, [facility] [place] [facility] [address] [id number] [place] [address] Apr, [facility] [place] [facility] [address] [id number] [place] [address] Apr, [facility] [place] [facility] [address] [id number] [place] [address] Apr, [facility] [place] [facility] [address] [id number] [place] [address] Mar, [facility] [place] [facility] [address] [id number] [place] [address] Mar, [facility] [place] [facility] [address] [id number] [place] [address] Mar, [facility] [place] [facility] [address] [id number] [place] [address] Mar, [facility] [place] [facility] [address] [id number] [place] [address] 10 Feb, 2014 [facility] [place] [facility] [address] [id number] [place] [address] 10 Feb, 2013 [facility] [place] [facility] [address] [id number] [place] [address] 05 Feb, 2013 [facility] [place] [facility] [address] [id number] [place] [address] 05 Feb, 2013 [facility] [place] [facility] [address] [id number] [place] [address] Feb, 2013 [facility] [place] [facility] [address] [id number] [place] [address] Feb, 2013 [facility] [place] [facility] [address] [id number] [place] [address] Jan, [facility] [place] [facility] [address] [id number] [place] [address] Jan, [facility] [place] [facility] [address] [id number] [place] [address] Jan, [facility] [place] [facility] [address] [id number] [facility] [place] [address] Jan, [facility] [place] [facility] [address] [id number] [facility] [place] [address] Jan, [facility] [place] [facility] [address] [id number] [place] [address] Jan, [facility] [place] [facility] [address] [id number] [place] [address] 3988 Jan, [facility] [place] [facility] [address] [id number] [place] [address] 5644 Jan, [facility] [place] [facility] [address] [id number] [place] [address] 4179 Jan, [facility] [place] [facility] [address] [id number] [place] [address] 4069 Jan, [facility] [place] [facility] [address] [id number] [place] [address] 0508 Jan, [facility] [place] [facility] [address] [id number] [place] [address] 4119 Jan, [facility] [place] [facility] [address] [id number] [place] [address] 2858 Jan, [facility] [place] [facility] [address] [id number] [place] [address] 9614 Jan, [facility] [place] [facility] [address] [id number] [place] [address] 6016 Dec, [facility] [place] [facility] [address] [id number] [place] [address] 9337 Dec, [facility] [place] [facility] [address] [id number] [place] [address] 5740 Dec, [facility] [place] [facility] [address] [id number] [place] Dec, [facility] [place] [facility] [address] [id number] [place] [address]- 0440 Nov, [facility] [place] [facility] [address] [id number] [place] [address]- 7059 Nov, [facility] [place] [facility] [address] [id number] [place] [address]- 6440 Nov, [facility] [place] [facility] [address] [id number] [place] [address]- 8935 Nov, [facility] [place] [facility] [address] [id number] [place] [address]- 8316 Nov, [facility] [place] [facility] [address] [id number] [place] [address]- 8046 October, [facility] [place] [facility] [address] [id number] [place] [address]- 5269 October, [facility] [place] [facility] [address] [id number] [place] [address]- 1132 October, [facility] [place] [facility] [address] [id number] [place] [address]- 5100 October, [facility] [place] [facility] [address] [id number] [place] [address]- 0108 October, [facility] [place] [facility] [address] [id number] [place] [address]- 9732 October, [facility] [place] [facility] [address] [id number] [place] [address]- 4129 October, [facility] [place] [facility] [address] [id number] [place] [address]- 2006 October, [facility] [place] [facility] [address] [id number] [place] [address]- 7600 October, [facility] [place] [facility] [address] [id number] [place] [address]- 8190 October, [facility] [place] [facility] [address] [id number] [place] [address]- 2724 October, [facility] [place] [facility] [address] [id number] [place] [address]- 0732 October, [facility] [place] [facility] [address] [id number] [place] [address]- 9382 October, [facility] [place] [facility] [address] [id number] [place] [address]- 3769 October, [facility] [place] [facility] [address] [id number] [place] [address]- 3551 Sep, [facility] [place] [facility] [address] [id number] [place] [address]- 5674 Sep, [facility] [place] [facility] [address] [id number] [place] [address]- 3505 Sep, [facility] [place] [facility] [address] [id number] [place] [address]- 0308 Sep, [facility] [place] [facility] [address] [id number] [place] [address]- 2993 Sep, [facility] [place] [facility] [address] [id number] [place] [address]- 8322 Sep, [facility] [place] [facility] [address] [id number] [place] [address]- 0886 Sep, [facility] [place] [facility] [address] [id number] [place] [address]- 9579 Sep, [facility] [place] [facility] [address] [id number] [place] [address]- 5801 Sep, [facility] [place] [facility] [address] [id number] [place] [address]- 2062 Sep, [facility] [place] [facility] [address] [id number] [place] [address]- 7420 Sep, [facility] [place] [facility] [address] [id number] [place] [address]- 1077 Sep, [facility] [place] [facility] [address] [id number] [place] [address]- 9065 Sep, [facility] [place] [facility] [address] [id number] [place] [address]- 7395 Sep, [facility] [place] [facility] [address] [id number] [place] [address]- 0188 Sep, [facility] [place] [facility] [address] [id number] [place] [address]- 0030 Aug, [facility] [place] [facility] [address] [id number] [place] [address]- 2653 Aug, [facility] [place] [facility] [address] [id number] [place] [address]- 1302 Aug, [facility] [place] [facility] [address] [id number] [place] [address]- 9451 Aug, [facility] [place] [facility] [address] [id number] [place] [address]- 3987 Jul, [facility] [place] [facility] [address] [id number] [place] [address]- 9232 Jul, [facility] [place] [facility] [address] [id number] [place] [address]- 2225 Jul, [facility] [place] [facility] [address] [id number] [place] [address]- 7847 Jul, [facility] [place] [facility] [address] [id number] [place] [address]- 7701 Jun, [facility] [place] [facility] [address] [id number] [place] [address]- 7533 Jun, [facility] [place] [facility] [address] [id number] [place] [address]- 0908 Jun, [facility] [place] [facility] [address] [id number] [place] [address]- 5759 Jun, [facility] [place] [facility] [address] [id number] [place] [address]- 8576 Jun, [facility] [place] [facility] [address] [id number] [place] [address] 9800 10 Jun, 2013 [facility] [address] [id number] [place] [address] Jun, [facility] [place] [facility] [address] [id number] [place] [address]- 6752 08 Jun, 2013 [facility] [address] [id number] [place] [address]- 9599 20 May, 2013 [facility] [place] [facility] [address] [id number] [place] [address]- 6460 20 May, 2013 [facility] [address] [id number] [place] [address]- 5264 18 May, 2013 [facility] [place] [facility] [address] [id number] [place] [address]- 2369 18 May, 2013 [facility] [address] [id number] [place] [address]- 7560 17 May, 2013 [facility] [address] [facility] [id number] [place] [id number] 17 May, 2013 [facility] [place] [facility] [address] [id number] [place] [address]- 5351 17 May, 2013 [facility] [place] [facility] [address] [id number] [place] [address]- 9262 17 May, 2013 [facility] [place] [facility] [address] [id number] [place] [address]- 4889 16 May, 2013 [facility] [place] [facility] [address] [id number] [place] [address]- 8914 16 May, 2013 [facility] [place] [facility] [address] [id number] [place] [address]- 5159 14 May, 2013 [facility] [place] [facility] [address] [id number] [place] [address]- 4096 14 May, 2013 [facility] [place] [facility] [address] [id number] [place] [address]- 2440 13 May, 2013 [facility] [place] [facility] [address] [id number] [place] [address]- 0511 13 May, 2013 [facility] [address] [id number] [place] [address]- 0106 May, [facility] [place] [facility] [address] [id number] [place] [address]- 8806 May, [facility] [address] [id number] [place] [address]- 0975 May, [facility] [place] [facility] [address] [id number] [place] [address]- 9503 May, [facility] [address] [id number] [place] [address]- 6673 Apr, [facility] [place] [facility] [address] [id number] [place] [address]- 4742 Apr, [facility] [place] [facility] [address] [id number] [place] [address]- 6738 Apr, [facility] [address] [id number] [place] [address]- 1438 Apr, [facility] [place] [facility] [address] [id number] [place] [address]- 0553 Aug, [facility] [address] [id number] [place] [address]- 1978 Aug, [facility] [place] [facility] [address] [id number] [place] [address]- 3038 Aug, [facility] [place] [facility] [address] [id number] [place] [address]- 3216 05 Aug, 2012 [facility] [place] [facility] [address] [id number] [place] [address]- 0193 04 Jul, 2012 [facility] [place] [facility] [address] [id number] [place] [address]- 4250 Jun, [facility] [place] [facility] [address] [id number] [place] [address]- 9402 Jun, [facility] [address] [id number] [place] [address]- 4234 Jun, [facility] [place] [facility] [address] [id number] [place] [address]- 8000 Jun, [facility] [place] [facility] [address] [facility] [id number] [place] [address]408 May, [facility] [place] [facility] [address] [id number] [place] [address]- 9487 May, [facility] [place] [facility] [address] [id number] [place] [address]- 5822 May, [facility] [place] [facility] [address] [id number] [place] [address]- 5777 May, [facility] [place] [facility] [address] [id number] [place] [address]- 8486 May, [facility] [place] [facility] [address] [id number] [place] [address]- 5186 May, [facility] [place] [facility] [address] [id number] [place] [address]- 4802 May, [facility] [place] [facility] [address] [id number] [place] [address]- 1880 Apr, [facility] [place] [facility] [address] [id number], [place] [address]- 5754 Apr, [facility] [place] [facility] [address] [id number], [place] [address]- 8035 Apr, [facility] [place] [facility] [address] [id number] [place] [address]- 5247 Apr, [facility] [place] [facility] [address] [id number] [place] [address]- 2738 Apr, [facility] [place] [facility] [address] [facility] [id number] [place] [address]- 9199 Apr, [facility] [place] [facility] [address] [id number] [place] [address]- 6263 Apr, [facility] [place] [facility] [address] [id number] [place] [address]- 9160 Mar, 2011 [facility] [place] [facility] [address] [id number] [place] [address]783 Mar, [facility] [place] [facility] [address] [id number] [place] [address]- 5087 Mar, [facility] [place] [facility] [address] [id number] [place] [address]- 1126 Mar, [facility] [place] [facility] [address] [id number] [place] Mar, [facility] [place] [facility] [address] [id number] [place] [address]- 0776 Mar, [facility] [place] [facility] [address] [id number] [place] [address]- 6524 Mar, [facility] [place] [facility] [address] [id number] [place] [address]- 4607 Mar, [facility] [place] [facility] [address] [id number] [place] [address]- 0201 Mar, [facility] [place] [facility] [address] [facility] [id number] [place] [address]- 4227 15 Mar, 2012 [facility] [place] [facility] [address] [id number] [place] [address]- 8111 Mar, [facility] [place] [facility] [address] [id number], [place] [address]- 0639 Mar, [facility] [place] [facility] [address] [id number] [place] [address]- 1593 06 Feb, 2012 [facility] [place] [facility] [address] [id number] [place] [address]- 7244 Jan, [facility] [place] [facility] [address] [id number], [place] [address]- 1723 Jan, [facility] [place] [facility] [address] [id number] [place] [address]- 8891 Jan, [facility] [place] [facility] [address] [id number] [place] [address]- 2645 Jan, [facility] [place] [facility] [address] [id number] [place] [address]- 3326 Jan, [facility] [place] [facility] [address] [id number] [place] [address]- 4548 Dec, [facility] [address] [id number] [place] [address]- 7929 Dec, [facility] [place] [facility] [address] [id number] [place] [address]- 2907 Nov, [facility] [address] [id number] [place] [address]- 6795 Nov, [facility] [address] [id number] [place] [address]- 5608 Nov, [facility] [place] [facility] [address] [id number] [place] [address]- 2667 October, [facility] [address] [id number] [place] [address]- 3318 October, [facility] [place] [facility] [address] [id number] [place] [address]- 5662 October, [facility] [place] [facility] [address] [id number] [place] [address]- 7584 October, [facility] [place] [facility] [address] [id number] [place] [address]- 8960 October, [facility] [place] [facility] [address] [id number] [place] [address]- 4545 October, [facility] [place] [facility] [address] [id number] [place] [address]- 0472 October, [facility] [place] [facility] [address] [id number] [place] [address]- 9826 26 Sep, 2011 [facility] [place] [facility] [address] [id number] [place] [address]- 4636 26 Sep, 2011 [facility] [place] [facility] [address] [id number] [place] [address]- 8220 26 Sep, 2011 [facility] [place] [facility] [address] [id number] [place] [address]- 5401 25 Sep, 2011 [facility] [place] [facility] [address] [id number] [place] [address]- 6656 24 Sep, 2011 [facility] [place] [facility] [address] [id number] [place] [address]- 8777 19 Sep, 2011 [facility] [place] [facility] [address] [id number] [place] [address]- 9462 17 Sep, 2011 [facility] [place] [facility] [address] [id number] [place] [address]- 2855 16 Sep, 2011 [facility] [place] [facility] [address] [id number] [place] [address]- 3021 16 Sep, 2011 [facility] [place] [facility] [address] [id number] [place] [address]- 4516 14 Sep, 2011 [facility] [place] [facility] [address] [id number] [place] [address]- 7380 13 Sep, 2011 [facility] [place] [facility] [address] [id number] [place] [address]- 6063 10 Sep, 2011 [facility] [place] [facility] [address] [id number] [place] [address]- 6188 09 Sep, 2011 [facility] [place] [facility] [address] [id number] [place] [address]- 4559 27 Aug, 2011 [facility] [place] [facility] [address] [id number] [place] [address]- 1990 12 Aug, 2011 [facility] [place] [facility] [address] [id number] [place] [address]- 0573 08 Aug, 2011 [facility] [place] [facility] [address] [id number] [place] [address]- 2406 Aug, [facility] [place] [facility] [address] [id number] [place] [address]- 0346 28 Jul, 2011 [facility] [place] [facility] [address] [id number] [place] [address]- 4636 22 Jul, 2011 [facility] [place] [facility] [address] [id number] [place] [address]- 7826 16 Jul, 2011 [facility] [place] [facility] [address] [id number] [place] [address] 2546 15 Jul, 2011 [facility] [place] [facility] [address] [id number] [place] [address]- 2316 14 Jul, 2011 [facility] [place] [facility] [address] [id number] [place] [address]- 2208 10 Jul, 2011 [facility] [place] [facility] [address] [id number] [place] [address]- 9515 Jun, [facility] [place] [facility] [address] [id number] [place] [address]- 1624 Jun, [facility] [place] [facility] [address] [id number] [place] [address]- 3283 Jun, [facility] [place] [facility] [address] [id number] [place] [address]- 7798 Jun, [facility] [place] [facility] [address] [id number] [place] [address]- 4852 Jun, [facility] [place] [facility] [address] [id number] [place] [address]- 9595 May, [facility] [place] [facility] [address] [id number] [place] [address] 2546 May, [facility] [place] [facility] [address] [id number] [place] [address]- 4069 May, [facility] [place] [facility] [address] [id number] [place] [address]- 4793 14 May, 2011 [facility] [place] [facility] [address] [id number] [place] [address]- 6086 12 May, 2011 [facility] [place] [facility] [address] [id number] [place] [address]- 6938 May, [facility] [place] [facility] [address] [id number] [place] [address]- 7953 May, [facility] [place] [facility] [address] [id number] [place] [address]- 5185 Apr, [facility] [place] [facility] [address] [id number] [place] [address]- 2946 Apr, [facility] [place] [facility] [address] [id number] [place] [address]- 2538 Apr, [facility] [place] [facility] [address] [id number] [place] [address]- 1047 Apr, [facility] [place] [facility] [address] [id number] [place] [address]- 0641 Apr, [facility] [place] [facility] [address] [id number] [place] [address]- 5815 Apr, [facility] [place] [facility] [address] [id number] [place] [address]- 5302 Mar, [facility] [place] [facility] [address] [id number], [place] [address]- 4332 Mar, [facility] [place] [facility] [address] [id number], [place] [address]- 9114 Mar, [facility] [place] [facility] [address] [id number] [place] [address]- 5025 Mar, [facility] [place] [facility] [address] [id number], [place] [address]- 7120 Jan, [facility] [place] [facility] [address] [id number] [place] [address]- 0112 Dec, [facility] [place] [facility] [address] [id number] [place] [address]- 9880 13 Dec, 2010 [facility] [address] [id number] [place] [address] 11 Oct, 2010 [facility] [place] [facility] [address] [id number] [place] [address] 20 Sep, 2010 [facility] [address] [id number] [place] [address] 14 Sep, 2010 [facility] [address] [id number] [place] [address] 2546 17 Jul, 2010 [facility] [address] [id number] [place] [address], [place] [address] 16 Jul, 2010 [facility] [address] [id number] [place] [address] 31 May, 2010 [facility] [address] [id number] [place] [address] May, [facility] [address] [id number] [place] [address] 08 May, 2010 [facility] [address] [id number] [place] [address] May, [facility] [address] [id number] [place] [address] Apr, [facility] [place] [facility] [address] [id number] [place] [address] Apr, [facility] [address] [id number] [place] [address] 25[address] Apr, [facility] [place] [facility] [address] [id number] [place] [address] Apr, [facility] [place] [facility] [address] [id number] [place] [address] Apr, [facility] [address] [id number] [place] [address] Mar, [facility] [place] [facility] [address] [id number] [place] [address] 14 Mar, 2010 [facility] [place] [facility] [address] [id number] [place] [address] 13 Mar, 2010 [facility] [place] [facility] [address] [id number] [place] [address] 12 Mar, 2010 [facility] [place] [facility] [address] [id number] [place] [address] 20 Jan, 2010 [facility] [place] [facility] [address] [id number] [place] [address] 15 Dec, 2009 [facility] [place] [facility] [address] [id number], [place] [address] 10 Sep, 2009 [facility] [place] [facility] [address] [facility] [id number] [place] [address] 08 May, 2009 [facility] [place] [facility] [address] [id number], [place] [address] 06 May, 2009 [facility] [place] [facility] [address] [id number], [place] [address] May, [facility] [place] [facility] [address] [facility] [id number][place] [address] 17 Apr, 2009 [facility] [place] [facility] [address] [id number], [place] [address] 17 Apr, 2009 [facility] [place] [facility] [address] [id number], [place] [address] 10 Apr, 2009 [facility] [place] [facility] [address] [id number], [place] [address] 10 Apr, 2009 [facility] [place] [facility] [address] [id number], [place] [address] 09 Apr, 2009 [facility] [place] [facility] [address] [facility] [id number], [place] [address] 15 Mar, 2009 [facility] [place] [facility] [address] [id number], [place] [address] Mar, [facility] [address] [facility] [id number] [place] [address] Jul, IMMUNIZATIONS No Known Immunizations SOCIAL HISTORY Never Assessed REASON FOR VISIT return call PLAN OF CARE VITAL SIGNS [...] 08/2017 Surgical History nephrectomy 03/2017 Hospitalization History [facility]ul[facility] 12/20/15 [facility] History [facility]- Abd pain 03/07/2017 Hospitalization History [facility]- Abd pain 03/14/2017 Hospitalization History [facility]- No bowel movement, rash 04/13/2017 Hospitalization History [facility]- Abd pain r/t kidney surgery on 04/17/2017 Hospitalization History [facility]- Abd pain r/t kidney surgery on 04/18/2017 Hospitalization History [facility]- Lower abd pain 04/30/2017 Hospitalization History [facility]- Cannot urinate 05/30/2017 Hospitalization History [facility]- Pancreatitis Sx 06/29/2017 Hospitalization History [facility]- Stomach pain 07/22/2017 Hospitalization History [facility]- Left side pain 08/12/2017 Hospitalization History [facility]- Incision site infection 08/30/2017 Hospitalization History [facility], [place], operated by [facility]- Post Op Seroma/Hematoma Left Abdomen. Discharged 09/04/17- Dr Daniel 09/02/2017 Hospitalization History [facility]- Right shoulder and back pain 2017 Hospitalization History [facility]- Shoulder/Back pain 11/11/2017 Hospitalization History [facility]- Right shoulder blade pain 12/04/2017 Hospitalization History [facility]- C-Diff 12/13/2017 Hospitalization History C diff et MRSA 12/27/2017
--- OUTSIDE RECORDS SUMMARY | 2018-02-24 14:28 | XMS REPORT ---
Author Author SAI CARMEN [facility] Address [address] [place] [address] Care Team Providers Care Kiln Burner Helper Name Role Phone CARMEN GIBBS Unavailable PROBLEMS Type Condition ICD9-CM Code [id number] Code Onset Dates Condition Status SNOMED Code Problem Polydipsia R63.1 Active 54706882 Problem Trichotillomania F63.3 Active 15300136 Problem Atelectasis J98.11 Active 33164660 Problem Intestinal malabsorption, unspecified K90.9 Active 76292209 Problem Chronic fatigue R53.82 Active 05307578 Problem Generalized social phobia F40.11 Active 11701480 Problem Restless leg syndrome G25.81 Active 58265182 Problem Moderate episode of recurrent major depressive disorder F33.1 Active 653743377 Problem Chronic post-traumatic stress disorder (PTSD) F43.12 Active 451660836 Problem History of renal cell carcinoma Z85.528 Active 462406815 Problem Chronic tension-type headache, intractable G44.221 Active 899679895 Problem Nodule of left lung R91.1 Active 246851024 Problem Hirsuties L68.0 Active 657675855 Problem FH: polycystic ovary Z84.2 Active 033946316 Problem Morbid (severe) obesity due to excess calories E66.01 Active 802508896 Problem Chronic pancreatitis K86.1 Active 189583207 Problem Hyperlipidemia, mixed E78.2 Active 492261040 Problem Asthma J45.909 Active 021287232 ALLERGIES No Information ENCOUNTERS Encounter Location Date Diagnosis [facility] [address] [facility] [id number] [address] Mar, [facility] [id number] [address] 17[address] Feb, [facility] [id number] [address] Jan, Acute pain of right knee M25.561 ; Right upper quadrant abdominal pain R10.11 and BMI 45.0-49.9, adult Z68.42 [facility] [id number] [place] [address] 62626- 9344 Jan, [facility] [id number] [place] [address] 43280- 2590 Jan, [facility] [id number] [place] [address] 84249- 6015 Dec, [facility] [id number] [place] [address] 29392- 5357 Dec, Intestinal malabsorption, unspecified K90.9 and Diarrhea, unspecified R19.7 [place] [id number] [place] [address] 64617- 5332 Dec, [facility] [id number] [place] [address] 02873- 9803 Dec, Strep throat J02.0 ; Intestinal malabsorption, unspecified K90.9 ; Diarrhea, unspecified R19.7 ; Postoperative seroma involving digestive system after non-digestive system procedure K91.873 ; Hyperlipidemia, mixed E78.2 and BMI 45.0-49.9, adult Z68.42 [facility] [id number] [place] [address] 73670- 3652 Dec, [facility] [id number] [place] [address] 25725- 2054 Dec, Nausea R11.0 [facility] [id number] [place] [address] 34490- 1377 Dec, [facility] [id number] [place] [address] 72383 -3895 Dec, Sore throat J02.9 ; Strep throat J02.0 and BMI 45.0-49.9, adult Z68.42 [facility] [id number] [place] [address] 24559- 1932 Dec, [facility] [address] [place] [address] 9287 Dec, [facility] [address] [address] 1892 Dec, [facility] [address] [place] [address]- 8076 Dec, [facility] [address] [address]- 8770 Dec, [facility] [address] [place] [address]- 8888 Dec, [facility] [address] [address]- 9318 Dec, [facility] [address] [address]- 2640 Dec, [facility] [address], [place] [address] 3759 Dec, Clostridium difficile colitis A04.72 ; Intractable vomiting with nausea, unspecified vomiting type R11.2 and BMI 45.0-49.9, adult Z68.42 [facility] [address] [address]- 4114 Dec, [facility] [address], [place] [address]- 8903 Nov, [facility] [address] [address]- 0283 Nov, [facility] [address] [address]- 8448 Nov, [facility] [address] [address]- 1301 Nov, [facility] [address], [place] [address] Nov, [place] [address] [address]- 1186 Nov, Hyperlipidemia, mixed E78.2 [facility] [id number] [place] [address] 47929 -8826 Nov, Acute suppurative otitis media of right ear without spontaneous rupture of tympanic membrane, recurrence not specified H66.001 and BMI 45.0-49.9, adult Z68.42 [place] [id number] [place] [address] 73427- 1791 Nov, Hyperlipidemia, mixed E78.2 [place] [id number] [place] [address] 95016- 0812 Nov, [place] [id number] [place] [address] 80086- 4456 Nov, [address] 95478- 3266 Nov, Nodule of left lung R91.1 [address] [id number] [place] [address] 95169- 4341 Nov, Medicare annual wellness visit, initial Z00.00 [...] adult Z68.42 and Encounter for immunization Z23 [id number] [place] [address] 37851- 2726 October, [address] [id number] [place] [address] 36374- 1916 October, Nodule of left lung R91.1 [id number] [place] [address] 89275- 4693 October, Nodule of left lung R91.1 [place] [id number] [place] [address] 77333- 3834 October, Recurrent major depressive disorder, in partial remission F33.41 ; Restless leg syndrome G25.81 ; Generalized social phobia F40.11 ; Chronic post-traumatic stress disorder (PTSD) F43.12 ; BMI 45.0-49.9, adult Z68.42 and Trichotillomania F63.3 [place] [id number] [place] [address] 38603- 5996 October, [place] [id number] [place] [address] 61804- 0365 Sep, Chronic fatigue R53.82 and BMI 45.0-49.9, adult Z68.42 [place] [id number] [place] [address] 80666- 8424 Aug, [place] [id number] [place] [address] 84308- 0114 Jul, Restless leg syndrome G25.81 and B12 deficiency E53.8 [address] [id number] [place] [address] 20234- 3474 Jul, [place] [id number] [place] [address] 51356- 2714 Jul, [place] [id number] [place] [address] 43472- 4033 Jun, [place] [id number] [place] [address] 34761- 5375 Jun, Fatigue, unspecified type R53.83 ; History of renal cell carcinoma Z85.528 ; Chronic pancreatitis K86.1 ; Restless leg syndrome G25.81 ; Dark urine R82.99 and BMI 45.0-49.9, adult Z68.42 [place] [id number] [place] [address] 13609- 3963 Jun, [facility] [id number] [address]- 1759 Jun, [facility] [address], [place] [address]- 0076 Jun, [facility] [id number] [address]- 3586 Jun, [facility] [address] 3832 May, Chronic post-traumatic stress disorder (PTSD) F43.12 ; Moderate episode of recurrent major depressive disorder F33.1 ; Trichotillomania F63.3 and Generalized social phobia F40.11 [facility] [address], [place] [address]- 4792 May, [facility] [address], [place] [address]- 2880 May, Chronic post-traumatic stress disorder (PTSD) F43.12 ; Moderate episode of recurrent major depressive disorder F33.1 ; Trichotillomania F63.3 and Generalized social phobia F40.11 [facility] [id number] [address]- 3782 May, Hyperlipidemia, mixed E78.2 ; Morbid (severe) obesity due to excess calories E66.01 ; Chronic post-traumatic stress disorder (PTSD) F43.12 ; Moderate episode of recurrent major depressive disorder F33.1 ; Trichotillomania F63.3 and Generalized social phobia F40.11 [facility] [id number] [address]- 0524 Apr, [facility] [address], [place] [address]- 7244 Apr, Hyperlipidemia, mixed E78.2 ; Morbid (severe) obesity due to excess calories E66.01 ; Chronic post-traumatic stress disorder (PTSD) F43.12 ; Moderate episode of recurrent major depressive disorder F33.1 ; Trichotillomania F63.3 and Generalized social phobia F40.11 [facility] [id number] [place] [address] 12320- 3600 Apr, Trichotillomania F63.3 ; Generalized social phobia F40.11 ; Chronic post-traumatic stress disorder (PTSD) F43.12 and Moderate episode of recurrent major depressive disorder F33.1 [place] [id number] [place] [address] 37543- 9884 Apr, [facility] [id number] [place] [address] 27527- 7319 Apr, [place] [id number] [place] [address] 31316- 6686 Mar, Moderate episode of recurrent major depressive disorder F33.1 ; Trichotillomania F63.3 ; Chronic post-traumatic stress disorder (PTSD) F43.12 ; Generalized social phobia F40.11 and Restless leg syndrome G25.81 [place] [id number] [place] [address] 01892- 0230 Mar, [place] [address] 50468- 5617 Mar, [place] [id number] [place] [address] 40425- 7491 Feb, Left kidney mass N28.89 [place] [id number] [place] [address] 36328- 7843 Jan, [place] [id number] [place] [address] 68606- 0493 Dec, Polydipsia R63.1 ; Chronic pancreatitis K86.1 and Fatigue, unspecified type R53.83 [facility] [id number] [place] [address] 76988- 0048 Nov, [place] [id number] [place] [address] 09100- 7154 Nov, [place] [id number] [place] [address] 19028- 3881 Nov, Headache around the eyes R51 [facility] [id number] [place] [address] 44526- 2785 Nov, [facility] [id number] [place] [address] 30616- 0987 October, STD exposure Z20.2 [facility] [id number] [place] [address] 99162- 8991 October, STD exposure Z20.2 [facility] [id number] [place] [address] 087076- 7390 October, Chronic post-traumatic stress disorder (PTSD) F43.12 ; Generalized social phobia F40.11 ; Trichotillomania F63.3 and Restless leg syndrome G25.81 [place] [id number] [place] [address] 31924- 9490 October, [facility] [id number] [place] [address] 68826- 6982 Sep, [facility] [id number] [place] [address] 52510- 1235 Aug, [facility] [id number] [place] [address] 94601- 1532 Aug, [place] [id number] [place] [address] 83483- 3990 Aug, Neck mass R22.1 [place] [id number] [place] [address] 08339- 5891 Aug, Atelectasis J98.11 [place] [id number] [place] [address] 69745- 0217 28 Jul, 2016 Hyperlipidemia, mixed E78.2 ; Atypical pneumonia J18.9 and Neck mass R22.1 [place] [id number] [place] [address] 22803- 5643 15 Jul, 2016 Hemoptysis R04.[address] [place] [address] 24928- 9725 08 Jul, 2016 Acute non-recurrent pansinusitis J01.40 ; Hemoptysis R04.2 ; Polydipsia R63.1 and Malaise R53.81 [facility] [address] [id number] [place] [address] 41249 -2220 May, Other viral agents as the cause of diseases classified elsewhere B97.89 and Acute upper respiratory infection, unspecified J06.9 [facility] [id number] [place] [address] 17657 -7228 Mar, Nausea R11.0 [facility] [id number] [place] [address] 86317 -8565 Dec, Hives L50.9 [place] [id number] [place] [address] 25789- 5316 Dec, [facility] [id number] [place] [address] 01808 -8717 Dec, Cutaneous abscess of limb, unspecified L02.419 ; Cellulitis of unspecified part of limb L03.119 ; Encounter for incision and drainage procedure Z01.89 and Encounter for recheck of abscess following incision and drainage Z09 [facility] [address] [place] [address] 31188 -7006 Dec, Abscess of leg, right L02.415 [place] [id number] [place] [address] 52261- 0336 08 Dec, 2015 Cellulitis of unspecified part of limb L03.119 and Cutaneous abscess of limb, unspecified L02.419 [place] [address] [place] [address] 77862- 7757 Dec, [place] [id number] [place] [address] 30392- 1190 Dec, [facility] [id number] [place] [address] 93723 -2701 Aug, [facility] [id number] [place] [address] 61780- 8433 Aug, [facility] [id number] [place] [address] 15746 -7906 04 Jul, 2015 Pain in unspecified wrist M25.539 and Back pain, thoracic M54.6 [facility] [id number] [place] [address] 74338 -3453 13 Jun, 2015 Strain of right wrist, initial encounter S66.911A [place] [address] 62756- 4958 Jun, Chronic pancreatitis, unspecified pancreatitis type K86.1 ; Hirsuties L68.0 ; Morbid (severe) obesity due to excess calories E66.01 ; Chronic pancreatitis K86.1 and Asthma J45.909 [place] [id number] [place] [address] 73225- 7700 May, [place] [id number] [place] [address] 11858- 6416 May, Hyperlipidemia, mixed E78.2 and Muscle spasm of back M62.830 [place] [id number] [place] [address] 16076- 0002 Apr, [place] [id number] [place] [address] 58764- 0280 Apr, Torticollis M43.6 [place] [id number] [place] [address] 40498- 6376 Apr, Right-sided thoracic back pain M54.6 [place] [id number] [place] [address] 10984- 2495 Mar, Rash R21 [place] [id number] [place] [address] 53563- 1239 Mar, [place] [address], [place] [address]- 6929 Jan, [facility] [id number] [place] [address] 844957- 3099 Dec, [facility] [address] 8313 Dec, Urinary frequency 788.41 and Nocturia more than twice per night 788.43 [facility] [id number] [place] [address] 04290- 8589 Nov, [facility] [id number] [place] [address] 328247- 0680 Nov, [facility] [id number] [place] [address] 92836- 7077 Nov, Abdominal pain 789.00 [facility] [id number] [place] [address] 57476- 3505 October, TDAP DX V06.1 [facility] [id number] [place] [address] 17186- 4880 October, [facility] [id number] [place] [address] 870781- 9991 October, Disturbance of skin sensation 782.0 ; Wrist pain, right 719.43 ; Hyperlipidemia 272.4 and Skin lesion of face 709.9 [facility] [address] [address]- 8867 Sep, [facility] [address] [address]- 1389 Sep, [facility] [id number] [place] [address] 310281- 7388 Aug, [facility] [address], [place] [address]- 1488 Aug, [facility] [id number] [place] [address] 42038653- 7414 23 Aug, 2014 [facility] [place] [facility] [address] [id number] [place] [address]- 8443 23 Aug, 2014 [facility] [place] [facility] [address] [id number] [place] [address]- 6200 16 Aug, 2014 [facility] [place] [facility] [address] [id number] [place] [address]- 4367 16 Aug, 2014 [facility] [place] [facility] [address] [id number] [place] [address]- 1042 14 Aug, 2014 [facility] [place] [facility] [address] [id number] [place] [address]- 9087 14 Aug, 2014 [facility] [place] [facility] [address] [id number] [place] [address]- 5817 Aug, [facility] [place] [facility] [address] [id number] [place] [address]- 3602 Aug, [facility] [place] [facility] [address] [id number] [place] [address]- 0452 04 Aug, 2014 [facility] [place] [facility] [address] [id number] [place] [address]- 1370 Aug, [facility] [place] [facility] [address] [id number] [place] [address]- 7320 Aug, [facility] [place] [facility] [address] [id number] [place] [address]- 1676 Aug, [facility] [place] [facility] [address] [id number] [address]- 2824 Jul, 2014 [facility] [place] [facility] [address] [id number] [place] [address]- 9214 Jul, 2014 [facility] [place] [facility] [address] [id number] [place] [address]- 6805 Jul, 2014 [facility] [place] [facility] [address] [id number] [place] [address]- 0441 Jul, [facility] [place] [facility] [address] [id number] [place] [address]- 3488 Jul, [facility] [address] [id number] [place] [address]- 8371 Jul, [facility] [address] [id number] [place] [address]- 4876 Jun, [facility] [address] [id number] [place] [address]- 2094 Jun, [facility] [address] [id number] [place] [address]- 4186 Jun, [facility] [address] [id number] [place] [address]- 1245 Jun, [facility] [address] [id number] [place] [address]- 4509 Jun, [facility] [address] [id number] [place] [address]- 8689 Jun, [facility] [address] [id number] [place] [address]- 8419 Jun, [facility] [address] [id number] [place] [address]- 7228 Jun, [facility] [address] [id number] [place] [address]- 8983 May, [facility] [place] [facility] [address] [id number] [place] [address]- 8979 May, [facility] [address] [id number] [place] [address]- 0451 18 May, 2014 [facility] [place] [facility] [address] [id number] [place] [address]- 7081 18 May, 2014 [facility] [place] [facility] [address] [id number] [place] [address]- 7179 15 May, 2014 [facility] [place] [facility] [address] [id number] [place] 2113 May, [facility] [place] [facility] [address] [id number] [place] [address]- 9908 May, [facility] [place] [facility] [address] [id number] [place] [address]- 1507 May, [facility] [place] [facility] [address] [id number] [place] [address]- 3160 May, [facility] [place] [facility] [address] [id number] [place] [address]- 9754 May, [facility] [place] [facility] [address] [id number] [place] [address]- 3578 May, [facility] [place] [facility] [address] [id number] [place] [address]- 0991 May, [facility] [place] [facility] [address] [id number] [place] [address] Apr, [facility] [place] [facility] [address] [id number] [place] [address] Apr, [facility] [place] [facility] [address] [id number] [place] [address] Apr, [facility] [place] [facility] [address] [id number] [place] [address] Apr, [facility] [place] [facility] [address] [id number] [place] [address] Apr, [facility] [place] [facility] [address] [id number] [place] [address] Apr, [facility] [place] [facility] [address] [id number] [place] [address] Apr, [facility] [place] [facility] [address] [id number] [place] [address] Apr, [facility] [place] [facility] [address] [id number] [place] [address] Apr, [facility] [place] [facility] [address] [id number] [place] [address] Apr, [facility] [place] [facility] [address] [id number] [place] [address] Apr, [facility] [place] [facility] [address] [id number] [place] [address] Apr, [facility] [place] [facility] [address] [id number] [place] [address] Mar, [facility] [place] [facility] [address] [id number] [place] [address] Mar, [facility] [place] [facility] [address] [id number] [place] [address] Mar, [facility] [place] [facility] [address] [id number] [place] [address] Mar, [facility] [place] [facility] [address] [id number] [place] [address] 10 Feb, 2014 [facility] [place] [facility] [address] [id number] [place] [address] 10 Feb, 2013 [facility] [place] [facility] [address] [id number] [place] [address] 05 Feb, 2013 [facility] [place] [facility] [address] [id number] [place] [address] 05 Feb, 2013 [facility] [place] [facility] [address] [id number] [place] [address] Feb, 2013 [facility] [place] [facility] [address] [id number] [place] [address] Feb, 2013 [facility] [place] [facility] [address] [id number] [place] [address] Jan, [facility] [place] [facility] [address] [id number] [place] [address] Jan, [facility] [place] [facility] [address] [id number] [place] [address] Jan, [facility] [place] [facility] [address] [id number] [place] [address] Jan, [facility] [place] [facility] [address] [id number] [place] [address] Jan, [facility] [place] [facility] [address] [id number] [place] [address] Jan, [facility] [place] [facility] [address] [id number] [place] [address] Jan, [facility] [place] [facility] [address] [id number] [place] [address] Jan, [facility] [place] [facility] [address] [id number] [place] [address] Jan, [facility] [place] [facility] [address] [id number] [place] [address] Jan, [facility] [place] [facility] [address] [id number] [place] [address] Jan, [facility] [place] [facility] [address] [id number] [place] [address] Jan, [facility] [place] [facility] [address] [id number] [place] [address] Jan, [facility] [place] [facility] [address] [id number] [place] [address] Jan, [facility] [place] [facility] [address] [id number] [place] [address] Dec, [facility] [place] [facility] [address] [id number] [place] [address] Dec, [facility] [place] [facility] [address] [id number] [place] [address] 399[address] Dec, [facility] [place] [facility] [address] [id number] [place] [address] Dec, [facility] [place] [facility] [address] [id number] [place] [address] 4[address] Nov, [facility] [place] [facility] [address] [id number] [place] [address] 6024 Nov, [facility] [place] [facility] [address] [id number] [place] [address] 9427 Nov, [facility] [place] [facility] [address] [id number] [place] [address] 5886 Nov, [facility] [place] [facility] [address] [id number] [place] [address] 9[address] Nov, [facility] [place] [facility] [address] [id number] [place] [address] 2670 October, [facility] [place] [facility] [address] [id number] [place] [address] 45[address] October, [facility] [place] [facility] [address] [id number] [place] [address] 0099 October, [facility] [place] [facility] [address] [id number] [place] [address] 3761 October, [facility] [place] [facility] [address] [id number] [place] [address] 6945 October, [facility] [place] [facility] [address] [id number] [place] [address]- 9666 October, [facility] [place] [facility] [address] [id number] [place] [address]- 9790 October, [facility] [place] [facility] [address] [id number] [place] [address]- 3461 October, [facility] [place] [facility] [address] [id number] [place] [address]- 4482 October, [facility] [place] [facility] [address] [id number] [place] [address]- 6956 October, [facility] [place] [facility] [address] [id number] [place] [address] 6740 October, [facility] [place] [facility] [address] [id number] [place] [address] 2928 October, [facility] [place] [facility] [address] [id number] [place] [address]- 7881 October, [facility] [place] [facility] [address] [id number] [place] [address]- 9976 October, [facility] [place] [facility] [address] [id number] [place] [address]- 1322 Sep, [facility] [place] [facility] [address] [id number] [place] [address]- 6752 Sep, [facility] [place] [facility] [address] [id number] [place] [address]- 3318 Sep, [facility] [place] [facility] [address] [id number] [place] [address]- 9462 Sep, [facility] [place] [facility] [address] [id number] [place] [address]- 3078 Sep, [facility] [place] [facility] [address] [id number] [place] [address]- 9954 Sep, [facility] [place] [facility] [address] [id number] [place] [address] 4088 Sep, [facility] [place] [facility] [address] [id number] [place] [address] 4394 Sep, [facility] [place] [facility] [address] [id number] [place] [address]- 6305 Sep, [facility] [place] [facility] [address] [id number] [place] [address]- 0897 Sep, [facility] [place] [facility] [address] [id number] [place] [address]- 4942 Sep, [facility] [place] [facility] [address] [id number] [place] [address]- 3445 Sep, [facility] [place] [facility] [address] [id number] [place] [address]- 0965 Sep, [facility] [place] [facility] [address] [id number] [place] [address] 3601 Sep, [facility] [place] [facility] [address] [id number] [place] [address]- 5231 Sep, [facility] [place] [facility] [address] [id number] [place] [address]- 3383 Aug, [facility] [place] [facility] [address] [id number] [place] [address]- 9402 Aug, [facility] [place] [facility] [address] [id number] [place] [address]- 2746 Aug, [facility] [place] [facility] [address] [id number] [place] [address]- 7855 Aug, [facility] [place] [facility] [address] [id number] [place] [address]- 8125 Jul, [facility] [place] [facility] [address] [id number] [place] [address]- 0976 Jul, [facility] [place] [facility] [address] [id number] [place] [address]- 3849 Jul, [facility] [place] [facility] [address] [id number] [place] [address]- 2527 Jul, [facility] [place] [facility] [address] [id number] [place] [address]- 4338 Jun, [facility] [place] [facility] [address] [id number] [place] [address]- 1795 Jun, [facility] [place] [facility] [address] [id number] [place] [address]- 3913 Jun, [facility] [place] [facility] [address] [id number] [place] [address]- 1369 Jun, [facility] [place] [facility] [address] [id number] [place] [address]- 7852 Jun, [facility] [place] [facility] [address] [id number] [place] [address]- 5362 10 Jun, 2013 [facility] [address] [id number] [place] [address] Jun, [facility] [place] [facility] [address] [id number] [place] [address]- 4710 08 Jun, 2013 [facility] [address] [id number] [place] [address]- 6773 20 May, 2013 [facility] [place] [facility] [address] [id number] [place] [address]- 5486 20 May, 2013 [facility] [address] [id number] [place] [address]- 6657 18 May, 2013 [facility] [place] [facility] [address] [id number] [place] [address]- 8552 18 May, 2013 [facility] [address] [id number] [place] [address]- 0451 17 May, 2013 [facility] [address] [facility] [id number] [id number] 17 May, 2013 [facility] [place] [facility] [address] [id number] [place] [address]- 4790 17 May, 2013 [facility] [place] [facility] [address] [id number] [place] [address]- 8617 17 May, 2013 [facility] [place] [facility] [address] [id number] [place] [address]- 0193 16 May, 2013 [facility] [place] [facility] [address] [id number] [place] [address]- 1490 16 May, 2013 [facility] [place] [facility] [address] [id number] [place] [address]- 2366 14 May, 2013 [facility] [place] [facility] [address] [id number] [place] [address]- 7572 14 May, 2013 [facility] [place] [facility] [address] [id number] [place] [address]- 2840 13 May, 2013 [facility] [place] [facility] [address] [id number] [place] [address]- 6403 13 May, 2013 [facility] [address] [id number] [place] [address]- 6685 May, [facility] [place] [facility] [address] [id number] [place] [address]- 6583 May, [facility] [address] [id number] [place] [address]- 0740 May, [facility] [place] [facility] [address] [id number] [place] [address]- 7104 May, [facility] [address] [id number] [place] [address]- 7699 Apr, [facility] [place] [facility] [address] [id number] [place] [address]- 0961 Apr, [facility] [place] [facility] [address] [id number] [place] [address]- 1887 Apr, [facility] [address] [id number] [place] [address]- 2913 Apr, [facility] [place] [facility] [address] [id number] [place] [address]- 9412 Aug, [facility] [address] [id number] [place] [address]- 9094 Aug, [facility] [place] [facility] [address] [id number] [place] [address]- 7380 Aug, [facility] [place] [facility] [address] [id number] [place] [address]- 8519 05 Aug, 2012 [facility] [place] [facility] [address] [id number] [place] [address]- 6896 04 Jul, 2012 [facility] [place] [facility] [address] [id number] [place] [address]- 4100 Jun, [facility] [place] [facility] [address] [id number] [place] [address]- 6528 Jun, [facility] [address] [id number] [place] [address]- 6753 Jun, [facility] [place] [facility] [address] [id number] [place] [address]- 6963 Jun, [facility] [place] [facility] [address] [facility] [id number] [place] [address] May, [facility] [place] [facility] [address] [id number] [place] [address]- 5537 May, [facility] [place] [facility] [address] [id number] [place] [address]- 9270 May, [facility] [place] [facility] [address] [id number] [place] [address]- 0861 May, [facility] [place] [facility] [address] [id number] [place] [address]- 9948 May, [facility] [place] [facility] [address] [id number] [place] [address]- 0831 May, [facility] [place] [facility] [address] [id number] [place] [address]- 4732 May, [facility] [place] [facility] [address] [id number] [place] [address]- 4202 Apr, [facility] [place] [facility] [address] [id number], [place] [address]- 2848 Apr, [facility] [place] [facility] [address] [id number], [place] [address]- 4236 Apr, [facility] [place] [facility] [address] [id number] [place] [address]- 4669 Apr, [facility] [place] [facility] [address] [id number] [place] [address]- 9254 Apr, [facility] [place] [facility] [address] [facility] [id number] [place] [address]- 1822 Apr, [facility] [place] [facility] [address] [id number] [place] [address]- 4055 Apr, [facility] [place] [facility] [address] [id number] [place] [address]- 9084 Mar, 2011 [facility] [place] [facility] [address] [id number] [place] [address] Mar, [facility] [place] [facility] [address] [id number] [place] [address]- 6331 Mar, [facility] [place] [facility] [address] [id number] [place] [address]- 6462 Mar, [facility] [place] [facility] [address] [id number] [place] [address] Mar, [facility] [place] [facility] [address] [id number] [place] [address]- 4240 Mar, [facility] [place] [facility] [address] [id number] [place] [address]- 5542 Mar, [facility] [place] [facility] [address] [id number] [place] [address]- 0447 Mar, [facility] [place] [facility] [address] [id number] [place] [address]- 1137 Mar, [facility] [place] [facility] [address] [facility] [id number] [place] [address]- 8833 15 Mar, 2012 [facility] [place] [facility] [address] [id number] [place] [address]- 4359 Mar, [facility] [place] [facility] [address] [id number], [place] [address]- 3198 Mar, [facility] [place] [facility] [address] [id number] [place] [address]- 4171 06 Feb, 2012 [facility] [place] [facility] [address] [id number] [place] [address]- 2830 Jan, [facility] [place] [facility] [address] [id number], [place] [address]- 6766 Jan, [facility] [place] [facility] [address] [id number] [place] [address]- 9531 Jan, [facility] [place] [facility] [address] [id number] [place] [address]- 1133 Jan, [facility] [place] [facility] [address] [id number] [place] [address]- 6242 Jan, [facility] [place] [facility] [address] [id number] [place] [address]- 1400 Dec, [facility] [address] [id number] [place] [address]- 2701 Dec, [facility] [place] [facility] [address] [id number] [place] [address]- 9087 Nov, [facility] [address] [id number] [place] [address]- 5613 Nov, [facility] [address] [id number] [place] [address]- 6537 Nov, [facility] [place] [facility] [address] [id number] [place] [address]- 9687 October, [facility] [address] [id number] [place] [address]- 0137 October, [facility] [place] [facility] [address] [id number] [place] [address]- 7814 October, [facility] [place] [facility] [address] [id number] [place] [address]- 0128 October, [facility] [place] [facility] [address] [id number] [place] [address]- 7870 October, [facility] [place] [facility] [address] [id number] [place] [address]- 7791 October, [facility] [place] [facility] [address] [id number] [place] [address]- 0729 October, [facility] [place] [facility] [address] [id number] [place] [address]- 9013 26 Sep, 2011 [facility] [place] [facility] [address] [id number] [place] [address]- 1734 26 Sep, 2011 [facility] [place] [facility] [address] [id number] [place] [address]- 4968 26 Sep, 2011 [facility] [place] [facility] [address] [id number] [place] [address]- 1788 25 Sep, 2011 [facility] [place] [facility] [address] [id number] [place] [address]- 0224 24 Sep, 2011 [facility] [place] [facility] [address] [id number] [place] [address]- 1934 19 Sep, 2011 [facility] [place] [facility] [address] [id number] [place] [address]- 9602 17 Sep, 2011 [facility] [place] [facility] [address] [id number] [place] [address]- 1169 16 Sep, 2011 [facility] [place] [facility] [address] [id number] [place] [address]- 1399 16 Sep, 2011 [facility] [place] [facility] [address] [id number] [place] [address]- 8239 14 Sep, 2011 [facility] [place] [facility] [address] [id number] [place] [address]- 6155 13 Sep, 2011 [facility] [place] [facility] [address] [id number] [place] [address]- 9172 10 Sep, 2011 [facility] [place] [facility] [address] [id number] [place] [address]- 9786 09 Sep, 2011 [facility] [place] [facility] [address] [id number] [place] [address]- 6784 27 Aug, 2011 [facility] [place] [facility] [address] [id number] [place] [address]- 1936 12 Aug, 2011 [facility] [place] [facility] [address] [id number] [place] [address]- 7270 08 Aug, 2011 [facility] [place] [facility] [address] [id number] [place] [address]- 2557 Aug, [facility] [place] [facility] [address] [id number] [place] [address]- 9206 28 Jul, 2011 [facility] [place] [facility] [address] [id number] [place] [address]- 2436 22 Jul, 2011 [facility] [place] [facility] [address] [id number] [place] [address]- 3356 16 Jul, 2011 [facility] [place] [facility] [address] [id number] [place] [address] 2546 15 Jul, 2011 [facility] [place] [facility] [address] [id number] [place] [address]- 8226 14 Jul, 2011 [facility] [place] [facility] [address] [id number] [place] [address]- 7033 10 Jul, 2011 [facility] [place] [facility] [address] [id number] [place] [address]- 6506 Jun, [facility] [place] [facility] [address] [id number] [place] [address]- 8578 Jun, [facility] [place] [facility] [address] [id number] [place] [address]- 6081 Jun, [facility] [place] [facility] [address] [id number] [place] [address]- 9760 Jun, [facility] [place] [facility] [address] [id number] [place] [address]- 4821 Jun, [facility] [place] [facility] [address] [id number] [place] [address]- 3614 May, [facility] [place] [facility] [address] [id number] [place] [address] 2546 May, [facility] [place] [facility] [address] [id number] [place] [address]- 4768 May, [facility] [place] [facility] [address] [id number] [place] [address]- 7683 14 May, 2011 [facility] [place] [facility] [address] [id number] [place] [address]- 5991 12 May, 2011 [facility] [place] [facility] [address] [id number] [place] [address]- 6240 May, [facility] [place] [facility] [address] [id number] [place] [address]- 7736 May, [facility] [place] [facility] [address] [id number] [place] [address]- 5313 Apr, [facility] [place] [facility] [address] [id number] [place] [address]- 8472 Apr, [facility] [place] [facility] [address] [id number] [place] [address]- 7692 Apr, [facility] [place] [facility] [address] [id number] [place] [address]- 8815 Apr, [facility] [place] [facility] [address] [id number] [place] [address]- 3675 Apr, [facility] [place] [facility] [address] [id number] [place] [address]- 2104 Apr, [facility] [place] [facility] [address] [id number] [place] [address]- 1541 Mar, [facility] [place] [facility] [address] [id number], [place] [address]- 2153 Mar, [facility] [place] [facility] [address] [id number], [place] [address]- 4504 Mar, [facility] [place] [facility] [address] [id number] [place] [address]- 9905 Mar, [facility] [place] [facility] [address] [id number], [place] [address]- 8958 Jan, [facility] [place] [facility] [address] [id number] [place] [address]- 0760 Dec, [facility] [place] [facility] [address] [id number] [place] [address]- 6281 13 Dec, 2010 [facility] [address] [id number] [place] [address]- 5546 11 Oct, 2010 [facility] [place] [facility] [address] [id number] [place] [address] 2546 20 Sep, 2010 [facility] [address] [id number] [place] [address]- 9256 14 Sep, 2010 [facility] [address] [id number] [place] [address] 2546 17 Jul, 2010 [facility] [address] [id number] [place] [address], [place] [address]- 4896 16 Jul, 2010 [facility] [address] [id number] [place] [address]- 1833 31 May, 2010 [facility] [address] [id number] [place] [address] 2541 May, [facility] [address] [id number] [place] [address]- 3093 08 May, 2010 [facility] [address] [id number] [place] [address]- 8263 May, [facility] [address] [id number] [place] [address]- 1031 Apr, [facility] [place] [facility] [address] [id number] [place] [address] 2540 Apr, [facility] [address] [id number] [place] [address] 2541 Apr, [facility] [place] [facility] [address] [id number] [place] [address]- 9567 Apr, [facility] [place] [facility] [address] [id number] [place] [address] Apr, [facility] [address] [id number] [place] [address] Mar, [facility] [place] [facility] [address] [id number] [place] [address] 14 Mar, 2010 [facility] [place] [facility] [address] [id number] [place] [address] 13 Mar, 2010 [facility] [place] [facility] [address] [id number] [place] [address] 12 Mar, 2010 [facility] [place] [facility] [address] [id number] [place] [address] 20 Jan, 2010 [facility] [place] [facility] [address] [id number] [place] [address] 15 Dec, 2009 [facility] [place] [facility] [address] [id number] [address] 10 Sep, 2009 [facility] [place] [facility] [address] [facility] [id number] [place] [address] 08 May, 2009 [facility] [place] [facility] [address] [id number], [place] [address] 06 May, 2009 [facility] [place] [facility] [address] [id number], [place] [address] May, [facility] [place] [facility] [address] [facility] [id number], [place] [address] 17 Apr, 2009 [facility] [place] [facility] [address] [id number], [place] [address] 17 Apr, 2009 [facility] [place] [facility] [address] [id number], [place] [address] 10 Apr, 2009 [facility] [place] [facility] [address] [id number], [place] [address] 10 Apr, 2009 [facility] [place] [facility] [address] [id number], [place] [address] 09 Apr, 2009 [facility] [place] [facility] [address] [facility] [id number], [place] [address] 15 Mar, 2009 [facility] [place] [facility] [address] [id number], [place] [address] Mar, [facility] [address] [facility] [id number] [place] [address] Jul, IMMUNIZATIONS No Known Immunizations SOCIAL HISTORY Never Assessed REASON FOR VISIT vomiting and diarrhea PLAN OF CARE VITAL SIGNS MEDICATIONS Unknown [...] 08/2017 Surgical History nephrectomy 03/2017 Hospitalization History [facility]ulitis[facility] 12/20/15 Hospitalization History [facility] [place]- Abd pain 03/07/2017 Hospitalization History [facility] [place]- Abd pain 03/14/2017 Hospitalization History [facility] [place]- No bowel movement, rash 04/13/2017 Hospitalization History [facility] [place]- Abd pain r/t kidney surgery on 04/17/2017 Hospitalization History [facility] [place]- Abd pain r/t kidney surgery on 04/18/2017 Hospitalization History [facility] [place]- Lower abd pain 04/30/2017 Hospitalization History [facility] [place]- Cannot urinate 05/30/2017 Hospitalization History [facility] [place]- Pancreatitis Sx 06/29/2017 Hospitalization History [facility] [place]- Stomach pain 07/22/2017 Hospitalization History [facility] [place]- Left side pain 08/12/2017 Hospitalization History [facility] [place]- Incision site infection 08/30/2017 Hospitalization History [facility]- Post Op Seroma/Hematoma Left Abdomen. Discharged 09/04/17- Dr Daniel 09/02/2017 Hospitalization History [facility] [place]- Right shoulder and back pain 2017 Hospitalization History [facility] [place]- Shoulder/Back pain 11/11/2017 Hospitalization History [facility] [place]- Right shoulder blade pain 12/04/2017 Hospitalization History [facility]- C-Diff 12/13/2017 Hospitalization History C diff et MRSA 12/27/2017
--- NOTE | 2018-02-24 14:49 | ED Abdominal Pain ---
General Chief Complaint: Abdominal/GI Problems Stated Complaint: TROUBLE BREATHING Source of Information: Patient Exam Limitations: No Limitations History of Present Illness Date Seen by Provider: Feb 24, 2018 Time Seen by Provider: 13:20 Initial Comments Patient is a 32-year-old female who presents to the emergency room with complaints of left sided incisional abdominal pain, nausea, vomiting. She reports that she had abdominal surgery [address] Marroquin and reports for the last 2 days her abdominal pain has been increasing. She still has bing and a AMBROSIO drain on the left abdominal wall in place. Incision intact, no redness, erythema, drainage noted. There is a serous yellow drainage in her AMBROSIO drain. She says this is a normal amount of drainage and color over the past week. She reports the pain is worse when she takes a deep breath. Timing/Duration: 2-3 Days Severity/Quality: Sharp Radiation: LLQ Associated Symptoms: Nausea/Vomiting Allergies and Home Medications Allergies Coded Allergies: fentanyl (Verified Allergy, Unknown, 02/13/18) meperidine (Verified Allergy, Unknown, 08/20/17) penicillin G (Verified Allergy, Unknown, 08/20/17) vancomycin (Unverified Adverse Reaction, Intermediate, severe itching, ) Home Medications Cyanocobalamin 1,000 Mcg/Ml Inj, 1,000 MCG IJ MONTHLY, (Reported) Estradiol 2 Mg Tablet, 2 MG PO HS, (Reported) Fluoxetine HCl 40 Mg Capsule, 40 MG PO HS, (Reported) Hydrocodone/Acetaminophen 1 Each Tablet, 1 TAB PO Q6H Prescribed by: LINDSEY MARROQUIN on 02/13/18 1335 Hydrocortisone 30 Gm Cream.appl, TOP DAILY PRN for INFLAMMATION, (Reported) Lipase/Protease/Amylase 1 Each Tablet, PO UD, (Reported) TAKE 3 TABLETS WITH MEALS AND 2 TABLETS WITH SNACKS (HAS NOT STARTED TAKING DUE TO NOT BEING ABLE TO KEEP ANYTHING DOWN BUT DID LEATHER COVERER THE SCRIPT) Ondansetron 8 Mg Tab.rapdis, 8 MG PO BID, (Reported) Promethazine HCl 25 Mg Tablet, 25 MG PO Q6H PRN for NAUSEA/VOMITING-2ND LINE, ( Reported) Ropinirole HCl 4 Mg Tablet, 4 MG PO HS, (Reported) Patient Home Medication List Home Medication List Reviewed: Yes Review of Systems Review of Systems Constitutional: see HPI; No chills, No fever Gastrointestinal: See HPI, Abdominal Pain, Nausea, Vomiting Skin: see HPI, other (abdominal incision on the left lower wall or abdomen.) All Other Systems Reviewed Negative Unless Noted: Yes Past Kfgydoi-Jvkaij-Wykugs Hx Past Med/Social Hx: Reviewed Nursing Past Med/Soc Hx Patient Social History Type Used: Cigarettes 2nd Hand Smoke Exposure: No Recent Hopitalizations: No Immunizations Up To Date Tetanus Booster (TDap): Unknown PED Vaccines UTD: No Date of Pneumonia Vaccine: May 17, 2012 Date of Influenza Vaccine: Jul 03, 2012 Seasonal Allergies Seasonal Allergies: Yes (MILD) Past Medical History Surgeries: Yes Abdominal, Adenoidectomy, Appendectomy, Gallbladder, 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, Nephrectomy, Orthopedic, Tonsillectomy Respiratory: Yes (HASNT USED INHALER IN > 4 YRS) Asthma Currently Using CPAP: No Currently Using BIPAP: No Cardiac: No Neurological: Yes (RESTLESS LEG SYNDROME) Headaches /Migraines 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: No (HX ENDOMETRIOSIS ) 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: 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 Sexually Transmitted Disease: No HIV/AIDS: No Genitourinary: Yes (L KIDNEY REMOVED FOR TUMOR;) UTI-Chronic Gastrointestinal: Yes (ENLARGED LIVER/FATTY LIVER) Liver Disease/Jaundice, Pancreatitis, Polyps Musculoskeletal: Yes (COCCYX-REPAIRED, MAY HAVE SIGNS OF ARTHRITIS) Chronic Back Pain Endocrine: Yes (CHRONIC PANCREATITIS) HEENT: No Loss of Vision: Denies Hearing Impairment: Denies Cancer: Yes Kidney Did You Recieve Any Treatments: Yes What Type of Treatment Did You: Surgical Intervention Psychosocial: Yes Anxiety, Depression Integumentary: No Herpes Blood Disorders: No Adverse Reaction/Blood Tranf: No (N/A) Family Medical History Reviewed Nursing Family Hx Cardiovascular disease 19 FATHER Completed stroke 19 FATHER Diabetes mellitus 19 FATHER Hypercholesterolemia 19 FATHER 19 MOTHER Hypertension 19 FATHER 19 MOTHER Neoplasm 19 MOTHER Psychosocial problem 19 FATHER 19 MOTHER Cancer, Diabetes, Hypertension Physical Exam Vital Signs Vital Signs - First Documented 02/24/18 13:10 Temp 97.5 Pulse 111 Resp 24 B/P (MAP) 151/92 (111) Pulse Ox 97 Capillary Refill : Height/Weight/BMI Height: 5'2.00" Weight: 250lbs. 2.0oz. 113.765503fn; 45.8 BMI Method:Stated General Appearance: WD/WN, no apparent distress Respiratory: chest non-tender, lungs clear, normal breath sounds, no respiratory distress, no accessory muscle use Cardiovascular: normal peripheral pulses, regular rate, rhythm, no edema, no gallop, no JVD, no murmur Gastrointestinal: normal bowel sounds, soft, no organomegaly, no pulsatile mass , tenderness, other (ambrosio drain in place. serous drainage draining. ) Back: normal inspection, no CVA tenderness, no vertebral tenderness Skin: normal color, warm/dry, tattoos/piercings Progress/Results/Core Measures Results/Orders Lab Results Laboratory Tests Test 02/24/18 13:15 02/24/18 15:35 Range/Units White Blood Count 14.5 H 4.3-11.0 10^3/uL Red Blood Count 4.39 4.35-5.85 10^6/uL Hemoglobin 12.2 11.5-16.0 G/DL Hematocrit 37 35-52 % Mean Corpuscular Volume 85 80-99 FL Mean Corpuscular Hemoglobin 28 25-34 PG Mean Corpuscular Hemoglobin Concent 33 32-36 G/DL Red Cell Distribution Width 13.7 10.0-14.5 % Platelet Count 305 130-400 10^3/uL Mean Platelet Volume 9.3 7.4-10.4 FL Neutrophils (%) (Auto) 77 H 42-75 % Lymphocytes (%) (Auto) 16 12-44 % Monocytes (%) (Auto) 3 0-12 % Eosinophils (%) (Auto) 3 0-10 % Basophils (%) (Auto) 0 0-10 % Neutrophils # (Auto) 11.2 H 1.8-7.8 X 10^3 Lymphocytes # (Auto) 2.3 1.0-4.0 X 10^3 Monocytes # (Auto) 0.5 0.0-1.0 X 10^3 Eosinophils # (Auto) 0.5 H 0.0-0.3 10^3/uL Basophils # (Auto) 0.0 0.0-0.1 10^3/uL Neutrophils % (Manual) 77 % Lymphocytes % (Manual) 17 % Monocytes % (Manual) 3 % Eosinophils % (Manual) 3 % Blood Morphology Comment NORMAL Sodium Level 140 135-145 MMOL/L Potassium Level 3.8 3.6-5.0 MMOL/L Chloride Level 105 98-107 MMOL/L Carbon Dioxide Level 27 21-32 MMOL/L Anion Gap 8 5-14 MMOL/L Blood Urea Nitrogen 9 7-18 MG/DL Creatinine 0.95 0.60-1.30 MG/DL Estimat Glomerular Filtration Rate > 60 BUN/Creatinine Ratio 9 Glucose Level 123 H 70-105 MG/DL Calcium Level 9.2 8.5-10.1 MG/DL Corrected Calcium 9.3 8.5-10.1 MG/DL Total Bilirubin 0.3 0.1-1.0 MG/DL Aspartate Amino Transf (AST/SGOT) 26 5-34 U/L Alanine Aminotransferase (ALT/SGPT) 20 0-55 U/L Alkaline Phosphatase 61 40-136 U/L Total Protein 7.3 6.4-8.2 GM/DL Albumin 3.9 3.2-4.5 GM/DL Amylase Level 45 25-125 U/L Lipase 32 8-78 U/L Serum Test, Qualitative NEGATIVE NEGATIVE Urine Color YELLOW Urine Clarity CLEAR Urine pH 7 5-9 Urine Specific [place] 1.005 L 1.016-1.022 Urine Protein NEGATIVE NEGATIVE Urine Glucose (UA) NEGATIVE NEGATIVE Urine Ketones NEGATIVE NEGATIVE Urine Nitrite NEGATIVE NEGATIVE Urine Bilirubin NEGATIVE NEGATIVE Urine Urobilinogen NORMAL NORMAL MG/DL Urine Leukocyte Esterase NEGATIVE NEGATIVE Urine RBC (Auto) NEGATIVE NEGATIVE Urine RBC NONE /HPF Urine WBC NONE /HPF Urine Squamous Epithelial Cells 2-5 /HPF Urine Crystals NONE /LPF Urine Bacteria NONE /HPF Urine Casts NONE /LPF Urine Mucus NEGATIVE /LPF Urine Culture Indicated NO My Orders Orders - DEMETRIO KAY Comprehensive Metabolic Panel (02/24/18 13:22) Lipase (02/24/18 13:22) Amylase (02/24/18 13:22) Ua Culture If Indicated (02/24/18 13:22) Hcg,Qualitative Serum (02/24/18 13:22) Saline Lock/Iv-Start (02/24/18 13:22) Cbc With Automated Diff (02/24/18 13:22) Ns Iv 1000 Ml (Sodium Chloride 0.9%) (02/24/18 13:30) Morphine Injection (Morphine Injection (02/24/18 13:30) Manual Differential (02/24/18 13:15) Morphine Injection (Morphine Injection (02/24/18 14:45) Ct Abdomen/Pelvis W (02/24/18 16:15) Morphine Injection (Morphine Injection (9/10/18 16:45) Iohexol Injection (Omnipaque 350 Mg/Ml 1 (02/24/18 16:45) Ns (Ivpb) (Sodium Chloride 0.9%) (02/24/18 16:45) Ranitidine Injection (Zantac Injection) (02/24/18 16:54) Diphenhydramine Injection (Benadryl Inje (02/24/18 16:54) Iv Push Cath Lab Ed (02/24/18 ) Medications Given in ED Vital Signs/I&O 02/24/18 02/24/18 13:10 18:14 Temp 97.5 Pulse 111 119 Resp 24 18 B/P (MAP) 151/92 (111) 119/78 Pulse Ox 97 97 Progress Progress Note : Time: 16:17 Progress Note I have consult to Dr. Lovett. I went over the laboratory reports with him. He does recommend CT of the abdomen and pelvis with contrast even with the patient' s one kidney, 1000 mL bolus of IV fluids given. Patient agrees with plans of care. 1702: The patient received a third dose of morphine for her pain prior to her CT scan and she developed localized hives and erythema at the IV site. Benadryl and ranitidine was ordered. Hives resolved shortly after. 1801: Patients pain is controlled at this time. Close follow up with Dr. Nobles recommended for tomorrow, she agrees with plan of care. Return precautions given. Diagnostic Imaging Diagonstic Imaging: CT Plain Films/CT/US/NM/MRI: abdomen, pelvis Comments NAME: JAYLYN DELGADO [facility] REC#: [id number] PHYSICIAN: DEMETRIO KAY CC: LUH KAY KYLE N MD Page 3 of 3 RADIOLOGY REPORT VIA [facility] [place], [place] CC: DEMETRIO KAY; TAHMINA HORTON MD Page 1 of 1 RADIOLOGY REPORT NAME: JAYLYN DELGADO [facility] REC#: [id number] PT STATUS: DEP ER : 1985 PHYSICIAN: DEMETRIO KAY ADMIT DATE: 02/24/18/ER Signed Date of Exam: 02/24/18 CT ABDOMEN/PELVIS W PROCEDURE: CT abdomen and pelvis with contrast. TECHNIQUE: Multiple contiguous axial images were obtained through the abdomen and pelvis after administration of intravenous contrast. DATE: February 24, 2018. COMPARISON: Ultrasound, January 15, 2018. CT abdomen and pelvis, December 18, 2017. INDICATION: 32-year-old female, severe left-sided abdominal pain. FINDINGS: There is a somewhat mosaic lung attenuation which potentially could reflect small airways disease and air trapping. There is a left lower lobe pulmonary nodule measuring up to 2.0 cm in size. This previously measured 1.7 cm in size on December 18, 2017. This is measuring increased in size. The heart is not enlarged. There is no pericardial effusion. The liver is normal in size and contour. There is a questionable round low-attenuation lesion in the right lobe of the liver measuring approximately 2.2 x 2.0 cm in size on axial image 43. There is no additional identified potential liver lesion. The main, right, and left portal veins are patent. The patient is status post cholecystectomy. There is no intrahepatic or extrahepatic bile duct dilation. The main pancreatic duct is not abnormally dilated. The pancreatic parenchyma is unremarkable. There are multiple accessory splenules. The spleen is not enlarged. The adrenal glands are unremarkable. Unremarkable appearance of the right kidney. The left kidney is absent. The right urinary collecting system is not distended. There is no identified renal or ureteral stone. The urinary bladder is unremarkable. The uterus is not seen and may be surgically absent. The intestinal tract is not distended. The appendix is not well seen and may be surgically absent. There is no free intraperitoneal air. There is no drainable fluid collection. There is no free pelvic fluid. There is no identified abnormally enlarged lymph node within the abdomen or pelvis which meets CT size criteria for adenopathy. There is prominent subcutaneous edema in the left anterior abdominal wall subcutaneous tissues. There is a catheter in this region with overlying skin bing. There is a somewhat focal area of more confluent attenuation in the region of the catheter without identified peripherally enhancing fluid collection. At the area of the subcutaneous stranding, there is a left lower anterior abdominal wall hernia defect which does contain bowel segments. There is no associated obstruction. This is perhaps best illustrated on coronal image 17 and adjacent sequential images. There is no identified acute bony abnormality. IMPRESSION: CT ABDOMEN AND PELVIS. 1. 2.0 cm left lower lobe pulmonary nodule measuring larger in size since comparison CT abdomen and pelvis of December 18, 2017. This does raise concern for possible malignancy. PET/CT recommended for further assessment. 2. Very subtle potential lesion in the right lobe of the liver. Dedicated liver mass protocol MRI abdomen with and without contrast is recommended for further assessment. Eovist is the recommended contrast agent. 3. Prominent subcutaneous stranding of the left lateral anterior abdominal wall with catheter in place. There is more confluent abnormal attenuation at this location, although without definite peripherally enhancing focal fluid collection. At this site, there is also a left lower anterior abdominal wall hernia containing bowel without associated obstruction. Dictated by: Dictated on workstation # [id number] Dict: 02/24/18 1735 Trans: 02/25/181833 Interpreted by: TAHMINA HORTON MD Electronically signed by: TAHMINA HORTON MD 02/25/181833 Reviewed: Reviewed by Me Departure Impression Primary Impression: Abdominal wall pain Additional Impressions: Lung nodule Liver lesion Disposition: HOME, SELF-CARE Condition: Stable/Unchanged Departure-Patient Inst. Decision time for Depature: 18:01 Referrals: CARMEN GIBBS MD (PCP/Family) Primary Care Physician Patient Instructions: Acute Abdomen (Belly Pain), Adult (DC) Add. Discharge Instructions: Follow-up tomorrow in Dr. Pearce's office. Call first thing in the morning for an appointment time and he will see tomorrow. Continue your home medications as previously prescribed. Discussed the findings of the nodules on your lung and liver with Dr. Gibbs as soon as possible. Call first thing tomorrow morning for an appointment time. Return back to the emergency room for any worsening symptoms or concerns as needed. All discharge instructions reviewed with patient and/or family. Voiced understanding. DEMETRIO KAY Feb 24, 2018 14:48
[2018-02-24 15:49] LABS: BILIRUBIN,URINE NEGATIVE (NEGATIVE); COLOR,URINE YELLOW; GLUCOSE, URINE (UA) NEGATIVE (NEGATIVE); KETONES,URINE NEGATIVE (NEGATIVE); LEUKOCYTE ESTERASE ,URINE NEGATIVE (NEGATIVE); NITRITE,URINE NEGATIVE (NEGATIVE); PH,URINE 7 (5-9); PROTEIN,URINE NEGATIVE (NEGATIVE); UROBILINOGEN,URINE NORMAL (NORMAL)
[2018-02-24 15:54] LABS: CLARITY,URINE CLEAR
[2018-02-24] MEDS ORDERED: IOHEXOL 350 MG/ML 150 ML (OMNIPAQUE 350) VIAL IV ONE (16:45)
[2018-02-24] MEDS ORDERED: NS 250 ML (IVPB) BAG IV ONE (16:45)
[2018-02-24] MEDS ORDERED: raNItidine 50 MG/2 ML INJ (ZANTAC) ONE (16:54)
[2018-02-24] MEDS ORDERED: diphenhydrAMINE 50 MG/ML INJ (BENADRYL) ONE (16:54)
--- NOTE | 2018-02-24 17:52 | Diagnostic Imaging Report ---
PROCEDURE: CT abdomen and pelvis with contrast. TECHNIQUE: Multiple contiguous axial images were obtained through the abdomen and pelvis after administration of intravenous contrast. DATE: February 24, 2018. COMPARISON: Ultrasound, January 15, 2018. CT abdomen and pelvis, December 18, 2017. INDICATION: 32-year-old female, severe left-sided abdominal pain. FINDINGS: There is a somewhat mosaic lung attenuation which potentially could reflect small airways disease and air trapping. There is a left lower lobe pulmonary nodule measuring up to 2.0 cm in size. This previously measured 1.7 cm in size on December 18, 2017. This is measuring increased in size. The heart is not enlarged. There is no pericardial effusion. The liver is normal in size and contour. There is a questionable round low-attenuation lesion in the right lobe of the liver measuring approximately 2.2 x 2.0 cm in size on axial image 43. There is no additional identified potential liver lesion. The main, right, and left portal veins are patent. The patient is status post cholecystectomy. There is no intrahepatic or extrahepatic bile duct dilation. The main pancreatic duct is not abnormally dilated. The pancreatic parenchyma is unremarkable. There are multiple accessory splenules. The spleen is not enlarged. The adrenal glands are unremarkable. Unremarkable appearance of the right kidney. The left kidney is absent. The right urinary collecting system is not distended. There is no identified renal or ureteral stone. The urinary bladder is unremarkable. The uterus is not seen and may be surgically absent. The intestinal tract is not distended. The appendix is not well seen and may be surgically absent. There is no free intraperitoneal air. There is no drainable fluid collection. There is no free pelvic fluid. There is no identified abnormally enlarged lymph node within the abdomen or pelvis which meets CT size criteria for adenopathy. There is prominent subcutaneous edema in the left anterior abdominal wall subcutaneous tissues. There is a catheter in this region with overlying skin bing. There is a somewhat focal area of more confluent attenuation in the region of the catheter without identified peripherally enhancing fluid collection. At the area of the subcutaneous stranding, there is a left lower anterior abdominal wall hernia defect which does contain bowel segments. There is no associated obstruction. This is perhaps best illustrated on coronal image 17 and adjacent sequential images. There is no identified acute bony abnormality. IMPRESSION: CT ABDOMEN AND PELVIS. 1. 2.0 cm left lower lobe pulmonary nodule measuring larger in size since comparison CT abdomen and pelvis of December 18, 2017. This does raise concern for possible malignancy. PET/CT recommended for further assessment. 2. Very subtle potential lesion in the right lobe of the liver. Dedicated liver mass protocol MRI abdomen with and without contrast is recommended for further assessment. Eovist is the recommended contrast agent. 3. Prominent subcutaneous stranding of the left lateral anterior abdominal wall with catheter in place. There is more confluent abnormal attenuation at this location, although without definite peripherally enhancing focal fluid collection. At this site, there is also a left lower anterior abdominal wall hernia containing bowel without associated obstruction. Dictated by: Dictated on workstation # [id number]
[2018-02-24 18:14] VITALS: BP 119/78
== END 2018-02-24 18:14 | disposition home or self-care (01) ==
LOC: EDUNIT# 13:02 → ER 13:03
DX: K76.89 Other specified diseases of liver (principal); R10.32 Left lower quadrant pain; R91.1 Solitary pulmonary nodule; J45.909 Unspecified asthma, uncomplicated; G25.81 Restless legs syndrome; G43.909 Migraine, unspecified, not intractable, without status migrainosus; F41.9 Anxiety disorder, unspecified; F32.9 Major depressive disorder, single episode, unspecified; Z86.19 Personal history of other infectious and parasitic diseases; Z82.49 Family history of ischemic heart disease and other diseases of the circulatory system; Z85.528 Personal history of other malignant neoplasm of kidney; Z86.010 Personal history of colon polyps; Z87.19 Personal history of other diseases of the digestive system; Z87.440 Personal history of urinary (tract) infections; Z88.5 Allergy status to narcotic agent; Z88.0 Allergy status to penicillin; Z88.8 Allergy status to other drugs, medicaments and biological substances; Z98.890 Other specified postprocedural states; Z90.89 Acquired absence of other organs; Z90.710 Acquired absence of both cervix and uterus; Z90.5 Acquired absence of kidney
CPT/HCPCS: 36415; 74177; 80053; 81000; 82150; 83690; 84703; 85007; 85027; 96374; 96375; 96376

== ENCOUNTER → 2018-02-28 | Outpatient (CLI) | payer MEDICARE, MEDICAID ==
--- NOTE | 2018-02-28 12:18 | Diagnostic Imaging Report ---
INDICATION: Dropped heavy object onto the right foot with swelling and redness. Time of exam: 11:56 AM 3 views of the right foot were obtained. The metatarsals appear intact. The phalanges appear intact. No fractures are seen. Midfoot and hindfoot are unremarkable. IMPRESSION: No acute bony abnormality is detected. Report was called to Idalia Jensen by medardo at 12:17 p.m. Dictated by: Dictated on workstation # [id number]
== END ==
LOC: RAD 11:25
PROVIDERS: ATTEND Nurse Practitioner Family
DX: M79.89 Other specified soft tissue disorders (principal); L53.9 Erythematous condition, unspecified; W20.8XXA Other cause of strike by thrown, projected or falling object, initial encounter
CPT/HCPCS: 73630

== ENCOUNTER 2018-03-01 01:18 | Emergency (ER) | payer MEDICARE, MEDICAID ==
[~2018-03-01] VITALS: Ht 157.5 cm; Wt 118.0 kg
--- OUTSIDE RECORDS SUMMARY | 2018-03-01 01:26 | XMS REPORT | Encounter Summary ---
Author Author [facility] Organization [facility] Address Unknown Phone Unavailable Care Team Providers Care Executive Meeting Manager Name Role Phone Michael Sutton MD Unavailable Unavailable Mary Whittington MD PCP Utech, Jessica TUBE LASER OPERATOR Unavailable Maggie Puente Unavailable Unavailable Mary Telles WELDING MACHINE OPERATOR/TENDER Unavailable Bam Ritter MD Unavailable Radha Bo RADIO BOARD OPERATOR Unavailable Unavailable Jose Sanchez MD Unavailable Reason for Referral * Radiology Services (Routine) Status Reason Specialty Diagnoses / Referred By Referred To Procedures Contact Contact No Auth Needed Radiology Diagnoses Utech, Jessica, Bhb Mri Chronic TUBE LASER OPERATOR [address] pancreatitis, [address] [place], [place] [id number] type ([facility]) [place], [place] Phone: [phone] rocedures Phone: MRI MRCP [phone] * Radiology Services (Routine) Status Reason Specialty Diagnoses / Referred By Referred To Procedures Contact Contact No Auth Needed Radiology Diagnoses Utech, Jessica, Bhb Mri Chronic TUBE LASER OPERATOR [address] pancreatitis, [address] [place], [place] [id number] type ([facility]) [place], [place] Phone: P [phone] rocedures Phone: MRI MRCP [phone] Reason for Visit * Radiology Services (Routine) Status Reason Specialty Diagnoses / Referred By Referred To Procedures Contact Contact No Auth Needed Radiology Diagnoses Utech, Jessica, Bhb Mri Chronic TUBE LASER OPERATOR [address] pancreatitis, [address] [place], [place] pancreat[place] [id number] type (HCC) [place], [place] Phone: P [phone] rocedures Phone: MRI MRCP [phone] Encounter Details Date Type Department Care Team Description 02/19/2018 Hospital [facility] Utech, Jessica, TUBE LASER OPERATOR Encounter Hospital Radiology [address] [place] [address] [place] [address] [phone] Social History Tobacco Use Types Packs/Day Years [...] to three times a day as needed. [id number] Take 3 tablets by mouth 300 tablet [...] Procedure Name Priority Date/Time Associated Diagnosis Comments MRI MRCP Routine 02/19/2018 Chronic pancreatitis, Results for this 7:44 AM CDT unspecified pancreatitis procedure are in the type (HCC) results section. in this encounter Results * MRI MRCP (02/19/2018 [...]
--- OUTSIDE RECORDS SUMMARY | 2018-03-01 01:26 | XMS REPORT | Encounter Summary ---
Author Author [facility] Organization [facility] Address Unknown Phone Unavailable Care Team Providers Care Pig Furnace Operator Name Role Phone Michael Suttno MD Unavailable Unavailable Mary Whittington MD PCP Jessica Valera Unavailable Maggie Puente Unavailable Unavailable Mary Telles APRN Unavailable Bam Ritter MD Unavailable Radha Bo LPN Unavailable Unavailable Jose Sanchez MD Unavailable Encounter Details Date Type Department Care Team Description 02/04/2018 Procedure Pass [facility] Radiology [address] [place] [address] Social History Tobacco Use Types Packs/Day Years [...]
--- OUTSIDE RECORDS SUMMARY | 2018-03-01 01:26 | XMS REPORT | Encounter Summary ---
Author Author [facility] Organization [facility] Address Unknown Phone Unavailable Care Team Providers Care Green Building Architect Name Role Phone Michael Sutton MD Unavailable Unavailable Mary Whittington MD PCP Jessica Valera PIPE WRAPPING MACHINE OPERATOR Unavailable Maggie Puente Unavailable Unavailable Mary Telles LINE REPAIRER TOWER Unavailable Bam Ritter MD Unavailable Radha Bo MARINE ENGINE MACHINIST Unavailable Unavailable Jose Sanchez MD Unavailable Reason for Referral * Radiology Services (Routine) Status Reason Specialty Diagnoses / Referred By Referred To Procedures Contact Contact No Auth Needed Radiology Diagnoses Moraima, Jessica, Bhb Mri Chronic PIPE WRAPPING MACHINE OPERATOR [address] pancreatitis, [address] [place], [place] [id number] type (HCC) [place], [place] Phone: P [phone] rocedures Phone: MRI MRCP [phone] Reason for Visit * Reason Comments Results Follow-up Phone Call Encounter Details Date Type Department Care Team Description 02/04/2018 Telephone [facility] UtCharo weavera, PIPE WRAPPING MACHINE OPERATOR Results; Follow-up Phone Physicians [address] [facility] [place] [address] [place] [address] [phone] [place] [address] Social History Tobacco Use Types [...] states she is currently in ER at [facility] d/t abd pain. Spoke to ER MD [...]
--- OUTSIDE RECORDS SUMMARY | 2018-03-01 01:26 | XMS REPORT | Clinical Summary ---
Author Author [facility] Organization [facility] Address Unknown Phone Unavailable Care Team Providers Care Pharmacy Consultant Name Role Phone Michael Sutton MD [...] in the Health Information Management department at [phone] for further assistance in locating additional records.[facility] Allergies Active Allergy Reactions Severity Noted [...] tongue to disolve. Chronic nausea, Chronic vomiting cilwjn-rcgwqdxr-gkbnrif Take 3 tablets by mouth 300 tablet [...] Overview: Added automatically from request for surgery [id number] Intractable vomiting with nausea 01/14/2018 Overview: Added automatically from request for surgery [id number] Left renal mass 04/10/2017 Renal mass 03/21/2017 Overview: Added automatically from request for surgery [id number] 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 06/24/2013 Overview: S/P HOLLAND, BSO 11/27 Depression 06/24/2013 S/P cholecystectomy 06/24/2013 Overview: 2007 S/P appendectomy 06/24/2013 Overview: November 2012 Pancreatitis 10/23/2011 Encounters Date Type Specialty Care Team Description 02/20/2018 Refill Gastroenterology Randy Nunez MD Medication monitoring encounter 02/19/2018 Hospital Radiology Jessica Valera ARNP Encounter 02/04/2018 Procedure Pass Radiology 02/04/2018 Telephone Gastroenterology Jessica Valera ARNP Results; Follow-up Phone Call 01/31/2018 [facility] Hal Sparks MD Other chronic Encounter pancreatitis (HCC) 01/31/2018 Anesthesia Catherine Waters, HEAD SHIPPER Event 01/31/2018 Procedure Pass 01/31/2018 Surgery Hal [...] Medication Update 12/17/2017 Telephone Gastroenterology Jessica Valera PLANOGRAPH OPERATOR Medication Follow-up 12/17/2017 Orders Only Gastroenterology [facility], Jessica, PLANOGRAPH OPERATOR Diarrhea, unspecified type 12/16/2017 Orders Only Gastroenterology [facility], Jessica, PLANOGRAPH OPERATOR Diarrhea, unspecified type 12/13/2017 Telephone Gastroenterology Randy Nunez MD Other 12/13/2017 Telephone Gastroenterology [facility] Jessica PLANOGRAPH OPERATOR C Diff ( Positive C Diff) 12/13/2017 Telephone Gastroenterology [facility] Jessica PLANOGRAPH OPERATOR Prior Authorization (Viokace ) 12/11/2017 Telephone Gastroenterology [facility] Jessica PLANOGRAPH OPERATOR Other (plan of care) 12/10/2017 Telephone Gastroenterology [facility] Jessica PLANOGRAPH OPERATOR Prior Authorization (Hydrocortisone rectal suppository 25mg ) 12/10/2017 Ancillary Radiology Outpatient, Radiologist Diagnosis unknown Orders 12/10/2017 Ancillary Radiology Outpatient, Radiologist Orders 12/10/2017 Ancillary Radiology Outpatient, Radiologist Diagnosis unknown Orders 12/09/2017 Office Visit Gastroenterology [facility] Jessica PLANOGRAPH OPERATOR Diarrhea, unspecified type (Primary Dx); Epigastric pain; [...] are in the type (HCC) results section. TELEMETRY STRIPS-SCAN 02/03/2018 Results for this 12:38 PM CDT procedure are in the results section. ESOPHAGOGASTRODUODENOSCOP 01/31/2018 Other chronic Y ENDOSCOPIC ULTRASOUND 1:03 PM CDT pancreatitis (HCC) Special Needs 3 day - Reminder Call - spoke with pt., 01/28/18 @ 0843 (cs)1st call. Pt scheduled for 01/31/18 1:00. 01/27/18 0912 () Waiting for Rosanne to review and advise 01/14/18 6495 () ENDOSCOPIC ULTRASOUND 01/31/2018 Results for this REPORT 12:46 PM CDT procedure are in the results section. LEUKOCYTES, FECAL Routine 12/11/2017 Diarrhea, unspecified Results for this 12:00 AM CDT type procedure are in the results section. GIARDIA SCREEN,FECAL Routine 12/11/2017 Diarrhea, unspecified Results for this 12:00 AM CDT type procedure are in the results section. CRYPTOSPORIDUM,FECAL Routine 12/11/2017 Diarrhea, unspecified Results for this 12:00 AM CDT type procedure are in the results section. CULTURE-FECES Routine 12/11/2017 Diarrhea, unspecified Results for this W/SENSITIVITY 12:00 AM CDT type procedure are in the results section. C DIFFICILE BY PCR Routine 12/11/2017 Diarrhea, unspecified Results for this 12:00 AM CDT type procedure are in the results section. BASIC METABOLIC PANEL Routine 12/09/2017 Left renal mass Results for this 11:38 AM CDT procedure are in the results section. POC CREATININE, RAD 12/09/2017 Results for this 9:55 AM CDT procedure are in the results section. CT CHEST W CONTRAST Routine 12/09/2017 Left renal mass Results for this 9:55 AM CDT procedure are in the results section. CT ABDOMEN W CONTRAST Routine 12/09/2017 Left renal mass Results for this 9:55 AM CDT procedure are in the results section. from Last 3 Months Results * MRI [...] OTHER RESULTS Procedure Date: 01/31/2018 12:46 PM [facility]: [id number] Date of : 1985 Gender: Female Attending Physician: Hal Sparks MD Procedure: Upper EUS Indications: Acute recurrent pancreatitis Providers: Hal Sparks MD (Doctor), Jake Crocker MD (Fellow), Delilah Jarquin RN (Nurse), Jose Mcclure (Network Operations Project Manager) Referring Physician: Randy Nunez MD, Jessica Valera [...] 45 seconds Procedure Code(s): --- Professional --- 30221, Esophagogastroduodenoscopy, flexible, transoral; with endoscopic ultrasound examination limited to the esophagus, stomach or duodenum, and adjacent structures CPT copyright 2016 [employer]. All rights reserved. The codes documented in this report are preliminary and upon professional fee coder review may be revised to meet current compliance requirements. Attending Participation: I personally performed the entire procedure. Hal Sparks MD 01/31/2018 2:08:18 PM The attending physician has electronically signed and finalized this document. Jake Crocker MD Number of Addenda: 0 Note Initiated On: 01/31/2018 12:46 PM Performing Organization Address City/State/Zipcode Phone Number OTHER RESULTS * C DIFFICILE BY PCR (12/11/2017) Narrative Performed At Performing Organization Address City/State/Zipcode Phone Number OTHER OUTSIDE LAB * LEUKOCYTES, FECAL (12/11/2017) Specimen Stool Narrative Performed At Performing Organization Address City/State/Zipcode Phone Number MAIN [facility] [address] [place] [address] * GIARDIA SCREEN,FECAL (12/11/2017) Narrative Performed At Performing Organization Address City/State/Zipcode Phone Number [facility] [address] [place] [address] * CULTURE-FECES W/SENSITIVITY (12/11/2017) Specimen Stool Narrative Performed At Performing Organization Address City/[facility]/Zipcode Phone Number MAIN LAB [address] [place] [address] * CRYPTOSPORIDUM,FECAL (12/11/2017) Specimen Stool Narrative Performed At Performing Organization Address City/State/Zipcode Phone Number MAIN [facility] [address] [place] [address] * BASIC METABOLIC PANEL (12/09/2017 11:38 AM) Sodium 134 (L) 137 - 147 MMOL/L [facility] Potassium 3.6 3.5 - 5.1 MMOL/L [facility] Chloride 101 98 - 110 MMOL/L [facility] CO2 26 21 - 30 MMOL/L [facility] Anion Gap 7 3 - 12 [facility] Glucose 152 (H) 70 - 100 MG/DL [facility] Blood Urea Nitrogen 11 7 - 25 MG/DL [facility] Creatinine 0.93 0.4 - 1.00 MG/DL [facility] Calcium 8.7 8.5 - 10.6 MG/DL [facility] eGFR Non >60 >60 mL/min [facility] Comment: The eGFR is not validated for use in drug dosing adjustments.Continue to use estimated creatinine clearance per dosing reference text.Please contact the Clinical Pharmacist for questions. eGFR >60 >60 mL/min [facility] Comment: The eGFR is not validated for use in drug dosing adjustments.Continue to use estimated creatinine clearance per dosing reference text.Please contact the Clinical Pharmacist for questions. Specimen Blood Performing Organization Address City/[facility]/Zipcode Phone Number [facility] [address] [phone] * POC CREATININE, RAD (12/09/2017 9:55 AM) Creatinine, POC 0.8 0.4 - 1.00 MG/DL [facility] Performing Organization Address City/[facility]/Zipcode Phone Number MAIN LAB [address] [phone] * CT ABDOMEN W CONTRAST (12/09/2017 9:55 [...] mass or abdominal metastases. Approved by Aidan Lenoe D.O. on 12/09/2017 12:05 PM By my [...]
--- OUTSIDE RECORDS SUMMARY | 2018-03-01 01:26 | XMS REPORT | Encounter Summary ---
Author Author [facility] Organization [facility] Address Unknown Phone Unavailable Care Team Providers Care Ultimate Hoops Trainer Name Role Phone Michael Sutton MD Unavailable Unavailable Mary Whittington MD PCP Jessica Valera Unavailable Maggie Puente Unavailable Unavailable Mary Telles APRN Unavailable Bam Ritter MD Unavailable Radha Bo LPN Unavailable Unavailable Jose Sanchez MD Unavailable Reason for Visit * Reason Comments Medication Refill Encounter Details Date Type Department Care Team Description 02/20/2018 Refill [facility] Randy Nunez MD Medication monitoring Physicians - Internal [address] [facility] encounter Medicine [place] [address] [address] [address] [facility] [phone] [place] [address] [phone] Social History Tobacco Use Types Packs/Day Years [...]
--- OUTSIDE RECORDS SUMMARY | 2018-03-01 01:27 | XMS REPORT | Encounter Summary ---
Author Author [facility] Organization [facility] Address Unknown Phone Unavailable Care Team Providers Care Cigar Wrapper Tender Automatic Name Role Phone Michael Sutton MD Unavailable Unavailable Mary Whittington MD PCP Jessica Valera Unavailable Maggie Puente Unavailable Unavailable Mary Telles APRN Unavailable Bam Ritter MD Unavailable Radha Bo LPN Unavailable Unavailable Jose Sanchez MD Unavailable Reason for Visit * Reason Comments Medication Update Encounter Details Date Type Department Care Team Description 12/25/[address] [facility] Abel Poe MD Medication Update Cancer Center - Exam [address] [facility] [address] [place] [address] [place], [place] [phone] Social History Tobacco Use Types Packs/Day Years [...] from her abd mesh. Her doctors in [place] asked her to keep her physicians here in the loop. Will relay info to Dr. Poe. in this encounter Plan of Treatment Date Type Specialty Care Team Description 12/09/2017 Procedure Pass Oncology 12/09/2017 Procedure Pass Oncology as of this encounter Visit Diagnoses Not on filein this encounter
--- OUTSIDE RECORDS SUMMARY | 2018-03-01 01:27 | XMS REPORT | Encounter Summary ---
Author Author [facility] Organization [facility] Address Unknown Phone Unavailable Care Team Providers Care Building Specialist Name Role Phone Michael Sutton MD Unavailable Unavailable Mary Whittington MD PCP Jessica Valera Unavailable Maggie Puente Unavailable Unavailable Robert-Mary Moore APRN Unavailable Bam Ritter MD Unavailable Radha Bo LPN Unavailable Unavailable Jose Sanchez MD Unavailable Encounter Details Date Type Department Care Team Description 01/31/2018 Procedure Pass Gastrointenstinal Endoscopy [address] [place] [address] Social History Tobacco Use Types [...]
--- OUTSIDE RECORDS SUMMARY | 2018-03-01 01:27 | XMS REPORT | Encounter Summary ---
Author Author [facility] Organization [facility] Address Unknown Phone Unavailable Care Team Providers Care Sports Attorney Name Role Phone Michael Sutton MD Unavailable Unavailable Mary Whittington MD PCP Jessica Valera Unavailable Maggie Puente Unavailable Unavailable Mary Telles APRN Unavailable Bam Ritter MD Unavailable Radha Bo LPN Unavailable Unavailable Jose Sanchez MD Unavailable Reason for Visit * Reason Comments Medication Follow-up Encounter Details Date Type Department Care Team Description 12/17/2017 Telephone [facility] Jessica Valera ARNP Medication Follow-up Physicians [address] Ortho and Medical [place] [address] [place] [address] [address] [facility] [phone] [place] [address] Social History Tobacco Use Types [...] cramping and diarrhea. Spoke w/ Pao at [facility] who states pt has picked [...]
--- OUTSIDE RECORDS SUMMARY | 2018-03-01 01:27 | XMS REPORT | Encounter Summary ---
Author Author [facility] Organization [facility] Address Unknown Phone Unavailable Care Team Providers Care Hall Manager Name Role Phone Michael Sutton MD Unavailable Unavailable Mary Whittington MD PCP Jessica Valera Unavailable Maggie Puente Unavailable Unavailable Mary Telles APRN Unavailable Bam Ritter MD Unavailable Radha Bo LPN Unavailable Unavailable Jose Sanchez MD Unavailable Reason for Visit * Reason Comments Appointment Request Encounter Details Date Type Department Care Team Description 01/14/2018 Telephone [facility] Hal Sparks MD Appointment Request Physicians [address] Ortho and Medical [place] [address] [place] [address] [address] [facility] [phone] [place] [address] Social History Tobacco Use Types [...] Upper Eus with Dr. Sparks. Routing to Donald to review and advise in this encounter Plan of Treatment Date Type Specialty Care Team Description 12/09/2017 Procedure Pass Oncology 12/09/2017 Procedure Pass Oncology as of this encounter Visit Diagnoses Not on filein this encounter
--- OUTSIDE RECORDS SUMMARY | 2018-03-01 01:27 | XMS REPORT | Encounter Summary ---
Author Author [facility] Organization [facility] Address Unknown Phone Unavailable Care Team Providers Care Catalogue Maker Name Role Phone Michael Sutton MD [...] nausea, unspecified vomiting type [R11.2] P rocedures DC ESOPHAGOGASTRODU ODENOSCOPY US SCOPE W/ADJ STRXRS ENDOSCOPIC ULTRASOUND REPORT ESOPHAGOGASTRODU ODENOSCOPY ENDOSCOPIC ULTRASOUND Encounter Details Date Type Department Care Team Description 01/31/2018 Surgery Gastrointenstinal Hal Sparks MD ESOPHAGOGASTRODUODENOSCOP Endoscopy [address] ENDOSCOPIC ULTRASOUND [address] [place] [address] [place] [address] [phone] Social History Tobacco Use Types Packs/Day Years [...] or concerns after your procedure please call [phone] M-F 8am-5:00 pm. After 5:00 pm, holidays or weekends call [phone] and ask for the GI Doctor vocational education professional. in this encounter Medications at Time of [...] to three times a day as needed. bgqnyz-dbqapnxa-eujmrbp Take 3 tablets by mouth 300 tablet [...] to review and advise 01/14/18 1346 () ENDOSCOPIC ULTRASOUND 01/31/2018 Results for this REPORT 12:46 PM CDT procedure are in the results section. in this encounter Results * TELEMETRY STRIPS-SCAN (02/03/2018 12:38 PM) Narrative Performed At Ordered by an unspecified provider. * ENDOSCOPIC ULTRASOUND REPORT (01/31/2018 12:46 PM) Provation Report Patient Name: Regulo WILKS OTHER RESULTS Procedure Date: 01/31/2018 12:46 PM CSN: [id number] Date of : 1985 Gender: Female Attending Physician: Hal Sparks MD Procedure: Upper EUS Indications: Acute recurrent pancreatitis Providers: Hal Sparks MD (Doctor), Jake Crocker MD (Fellow), Delilah Jarquin RN (Nurse), Jose Mcclure (Security Installation Technician) Referring Physician: Randy Nunez MD, Jessica Valera [...] 45 seconds Procedure Code(s): --- Professional --- 00196, Esophagogastroduodenoscopy, flexible, transoral; with endoscopic ultrasound examination limited to the esophagus, stomach or duodenum, and adjacent structures CPT copyright 2016 [place]. All rights reserved. The codes documented in this report are preliminary and upon single wire saw operator review may be revised to meet current [...]
--- OUTSIDE RECORDS SUMMARY | 2018-03-01 01:27 | XMS REPORT | Encounter Summary ---
Author Author [facility] Organization [facility] Address Unknown Phone Unavailable Care Team Providers Care Air Saw Operator Name Role Phone Michael Sutton MD Unavailable Unavailable Mary Whittington MD PCP Jessica Valera Unavailable Maggie Puente Unavailable Unavailable Mary Telles APRN Unavailable Bam Ritter MD Unavailable Radha Bo LPN Unavailable Unavailable Jose Sanchez MD Unavailable Reason for Visit * Reason Comments Follow-up Phone Call Encounter Details Date Type Department Care Team Description 01/07/2018 Telephone [facility] Randy Nunez MD Follow- up Phone Call Physicians - Internal [address] [facility] Medicine [place] [address] [place] [address] [address] [facility] [phone] [place] [address] [phone] Social History Tobacco Use Types Packs/Day Years [...]
--- OUTSIDE RECORDS SUMMARY | 2018-03-01 01:27 | XMS REPORT | Encounter Summary ---
Author Author [facility] Organization [facility] Address Unknown Phone Unavailable Care Team Providers Care Supervisor Metal Cans Name Role Phone Michael Sutton MD Unavailable Unavailable Mary Whittington MD PCP Jessica Valera Unavailable Maggie Puente Unavailable Unavailable Mary Telles APRN Unavailable Bam Ritter MD Unavailable Radha Bo LPN Unavailable Unavailable Jose Sanchez MD Unavailable Reason for Visit * Reason Comments Follow-up Phone Call Records Request Encounter Details Date Type Department Care Team Description 01/13/2018 Telephone [facility] Randy Nunez MD Follow- up Phone Call; Physicians - Internal [address] [place] [address] Records Request Medicine [place] [address] [place] [address] [address] [facility] [phone] [place] [address] [phone] Social History Tobacco Use Types Packs/Day Years [...] Patient has seen Dr. Sanchez, Surgeon in [place], [place] and believes patient needs another EUS. [...] patient aware requesting records from recent [facility] admission/discharge a few weeks ago, Dr. Sanchez and Dr. Whittington recent records to review. in this encounter Plan of Treatment Date Type Specialty Care Team Description 12/09/2017 Procedure Pass Oncology 12/09/2017 Procedure Pass Oncology as of this encounter Visit Diagnoses Not on filein this encounter
--- OUTSIDE RECORDS SUMMARY | 2018-03-01 01:27 | XMS REPORT | Encounter Summary ---
Author Author [facility] Organization [facility] Address Unknown Phone Unavailable Care Team Providers Care Staff Analyst Name Role Phone Michael Sutton MD Unavailable Unavailable Mary Whittington MD PCP UtJessica weaver Unavailable Maggie Puente Unavailable Unavailable Mary Telles APRN Unavailable Bam Ritter MD Unavailable Radha Bo LPN Unavailable Unavailable Jose Sanchez MD Unavailable Encounter Details Date Type Department Care Team Description 12/17/2017 Orders Only [facility] Jessica Valera ARNP Diarrhea, unspecified Physicians [address] type Ortho and Medical [place] [address] [place] [address] [phone] [place] [address] Social History Tobacco Use Types [...] Procedure Name Priority Date/Time Associated Diagnosis Comments LEUKOCYTES, FECAL Routine 12/11/2017 Diarrhea, unspecified Results [...] type procedure are in the results section. in this encounter Results * LEUKOCYTES, FECAL (12/11/2017) Specimen Stool Narrative Performed At Performing Organization Address City/[facility] Phone Number [facility] [address] [place] [phone] * GIARDIA SCREEN,FECAL (12/11/2017) Narrative Performed At Performing Organization Address [facility]/Zipcode Phone Number [facility] [address] [place] [address] * CRYPTOSPORIDUM,FECAL (12/11/2017) Specimen Stool Narrative Performed At Performing Organization Address [facility] Phone Number [facility] [address] [place] [address] * CULTURE-FECES W/SENSITIVITY (12/11/2017) Specimen Stool Narrative Performed At Performing Organization Address [facility]ode Phone Number [facility] [address] [place] [address] in this encounter Visit Diagnoses Diagnosis Diarrhea, unspecified type
--- OUTSIDE RECORDS SUMMARY | 2018-03-01 01:27 | XMS REPORT | Encounter Summary ---
Author Author [facility] Organization [facility] Address Unknown Phone Unavailable Care Team Providers Care Microwave Oven Assembler Name Role Phone Michael Sutton MD [...] Date Type Department Care Team Description 01/31/2018 [facility] Hal Sparks MD Other chronic Encounter Endoscopy [address] pancreatitis (HCC) [address] [place] [address] [place] [address] [phone] Social History Tobacco Use Types Packs/Day Years [...] After 5:00 pm, holidays or weekends call [phone] and ask for the GI Doctor electronic warfare technical. in this encounter Medications at Time of [...] to three times a day as needed. nukkhr-jtwnrhod-xkveirm Take 3 tablets by mouth 300 tablet [...] 06/03/2017 TOTBILI 0.4 06/03/2017 JONA Salcedo Pager [phone] in this encounter Plan of Treatment Date [...] OTHER RESULTS Procedure Date: 01/31/2018 12:46 PM [facility]: [id number] Date of : 1985 Gender: Female Attending Physician: Hal Spakrs MD Procedure: Upper EUS Indications: Acute recurrent pancreatitis Providers: Hal Sparks MD (Doctor), Jake Crocker MD (Fellow), Delilah Jarquin RN (Nurse), Jose Mcclure (Retail Sales Associate) Referring Physician: Randy Nunez MD, Jessica Valera [...] 45 seconds Procedure Code(s): --- Professional --- 95615, Esophagogastroduodenoscopy, flexible, transoral; with endoscopic ultrasound examination limited to the esophagus, stomach or duodenum, and adjacent structures CPT copyright 2016 [employer] [employer]. All rights reserved. The codes documented in this report are preliminary and upon sales account leader review may be revised to meet current [...]
--- OUTSIDE RECORDS SUMMARY | 2018-03-01 01:27 | XMS REPORT | Encounter Summary ---
Author Author [facility] Organization [facility] Address Unknown Phone Unavailable Care Team Providers Care Strapper Operator Name Role Phone Michael Sutton MD Unavailable Unavailable Mary Whittington MD PCP Jessica Valera Unavailable Maggie Puente Unavailable Unavailable Mary Telles HELPER SHEAR OPERATOR Unavailable Bam Ritter MD Unavailable Rdaha Bo LPN Unavailable Unavailable Jose Sanchez MD Unavailable Reason for Visit * Auth/Cert Status Reason Specialty Diagnoses / Referred By Referred To Procedures Contact Contact Diagnoses Other chronic pancreatitis (HCC) Intractable vomiting with nausea, unspecified vomiting type Other chronic pancreatitis (HCC) [K86.1] Intractable vomiting with nausea, unspecified vomiting type [R11.2] P rocedures SC ESOPHAGOGASTRODU ODENOSCOPY US SCOPE W/ADJ STRXRS ENDOSCOPIC ULTRASOUND REPORT ESOPHAGOGASTRODU ODENOSCOPY ENDOSCOPIC ULTRASOUND Encounter Details Date Type Department Care Team Description 01/31/2018 Anesthesia Gastrointenstinal Catherine Waters CRNA Event Endoscopy [address] [facility] [address] [place] [address] [place] [address] Anesthesia Record Procedure Name Responsible Anesthesia Start [...] to three times a day as needed. zasjex-cpkkitpb-xsmbgnl (VIOKACE) 20,880-78,300- 78,300 unit tab Take 3 [...] with patient Plan discussed with: anesthesiologist and TAXI DANCER. Comments: (Risks of GETA including sore throat, oral/dental injury, allergic reactions, PONV, aspiration, respiratory failure, DE, CVA discussed with patient who reports understanding and consents to anesthetic plan. Araseli Mandel * Anesthesia Preprocedure Evaluation - Loretta Capellan CRNA - 01/31/2018 12:56 PM CDT Formatting of this note may be different from the original. Anesthesia Pre-Procedure Evaluation Name: Janeth Rjaput : 1985 Age: 32 y.o. Sex: female [...] to three times a day as needed. rugfzq-ghifhsej-wydajiz (VIOKACE) 20,880-78,300- 78,300 unit tab Take 3 [...] patient Blood Consent: consented Plan discussed with: TAXI DANCER and anesthesiologist. Comments: (Risks of GETA including sore throat, oral/dental injury, allergic reactions, PONV, aspiration, respiratory failure, DE, CVA discussed with patient who reports understanding [...]
--- OUTSIDE RECORDS SUMMARY | 2018-03-01 01:27 | XMS REPORT | Encounter Summary ---
Author Author [facility] Organization [facility] Address Unknown Phone Unavailable Care Team Providers Care Atm Mechanic Name Role Phone Michael Sutton MD Unavailable Unavailable Mary Whittington MD PCP Jessica Valera Unavailable Maggie Puente Unavailable Unavailable Mary Telles APRN Unavailable Bam Ritter MD Unavailable Radha Bo LPN Unavailable Unavailable Jose Sanchez MD Unavailable Encounter Details Date Type Department Care Team Description 01/14/2018 Prep for Case [facility] Randy Nunez MD Other chronic Physicians [address] pancreatitis (HCC) Ortho and Medical [place] 1023 (Primary Dx); [address] [place] [address] Intractable vomiting with [address] [phone] nausea, unspecified [place], [place] vomiting type [phone] Social History Tobacco [...]
--- OUTSIDE RECORDS SUMMARY | 2018-03-01 01:28 | XMS REPORT | Encounter Summary ---
Author Author [facility] Organization [facility] Address Unknown Phone Unavailable Care Team Providers Care Vp Rheumatology Name Role Phone Michael Sutton MD Unavailable Unavailable Mary Whittington MD PCP Jessica Valera Unavailable Maggie Puente Unavailable Unavailable Mary Telles APRN Unavailable Bam Ritter MD Unavailable Radha Bo LPN Unavailable Unavailable Jose Sanchez MD Unavailable Reason for Visit * Reason Comments Other plan of care Encounter Details Date Type Department Care Team Description 12/11/2017 Telephone [facility] Jessica Valera ARNP Other (plan of care) Physicians [address] Ortho and Medical MS [address] [place] [address] [address] [facility] [phone] [place] [address] Social History Tobacco Use Types [...]
--- OUTSIDE RECORDS SUMMARY | 2018-03-01 01:28 | XMS REPORT | Encounter Summary ---
Author Author [facility] Organization [facility] Address Unknown Phone Unavailable Care Team Providers Care Production Honing Machine Operator Name Role Phone Michael Sutton MD Unavailable Unavailable Mary Whittington MD PCP Jessica Valera Unavailable Maggie Puente Unavailable Unavailable Mary Telles CANCER REGISTRY COORDINATOR Unavailable Bam Ritter MD Unavailable Radha Bo TRANSPORT SPECIALIST Unavailable Unavailable Jose Sanchez MD Unavailable Reason for Referral * Radiology Services Status Reason Specialty Diagnoses / Referred By Referred To Procedures Contact Contact No Auth Needed Radiology Diagnoses Abel Poe MD [address] Left renal mass [address] [place] [address] [place] [address] [place], [place] Phone: CONTRAST [phone] Phone: * Radiology Services Status Reason Specialty Diagnoses / Referred By Referred To Procedures Contact Contact No Auth Needed Radiology Diagnoses Abel Poe MD [address] Left renal mass [address] rocedures MS [facility] [place] [address] [address] [place], [place] Phone: CONTRAST [phone] Phone: * Radiology Services Status Reason Specialty Diagnoses / Referred By Referred To Procedures Contact Contact No Auth Needed Radiology Diagnoses Abel Poe MD [address] Left renal mass [address] Denise willams [place] [address] [place] [address] [place] [address] Phone: * Radiology Services Status Reason Specialty Diagnoses / Referred By Referred To Procedures Contact Contact No Auth Needed Radiology Diagnoses Abel Poe MD [address] Left renal mass [address] [place] [address] [place] [address] [place] [address] Phone: Reason for Visit * Radiology Services Status Reason Specialty Diagnoses / Referred By Referred To Procedures Contact Contact No Auth Needed Radiology Diagnoses Abel Poe MD [address] Left renal mass [address] roced[address] [place] [address] [place] [address] [address] [place] Phone: CONTRAST [phone] Phone: Encounter Details Date Type Department Care Team Description 12/09/2017 [facility] Abel Poe MD Encounter [facility] Radiology [address] [place] [address] [place] [address] [phone] Social History Tobacco Use Types Packs/Day Years [...] Procedure Name Priority Date/Time Associated Diagnosis Comments POC CREATININE, RAD 12/09/2017 Results for this 9:55 AM CDT procedure are in the results section. CT ABDOMEN W CONTRAST Routine 12/09/2017 Left renal mass Results for this 9:55 AM CDT procedure are in the results section. CT CHEST W CONTRAST Routine 12/09/2017 Left renal mass Results for this 9:55 AM CDT procedure are in the results section. in this encounter Results * POC CREATININE, RAD (12/09/2017 9:55 AM) Creatinine, POC 0.8 0.4 - 1.00 MG/DL [facility] Performing Organization Address City/State/Zipcode Phone Number [facility] [address] [place] [address] * CT CHEST W CONTRAST (12/09/2017 9:55 [...]
--- OUTSIDE RECORDS SUMMARY | 2018-03-01 01:28 | XMS REPORT | Encounter Summary ---
Author Author [facility] Organization [facility] Address Unknown Phone Unavailable Care Team Providers Care Tipple Worker Name Role Phone Michael Sutton MD Unavailable Unavailable Mary Whittington MD PCP Jessica Valera Unavailable Maggie Puente Unavailable Unavailable Mary Telles APRN Unavailable Bam Ritter MD Unavailable Radha Bo LPN Unavailable Unavailable Jose Sanchez MD Unavailable Encounter Details Date Type Department Care Team Description 12/10/2017 Ancillary Rad Outpatient, Radiologist Diagnosis unknown Orders [address] [place] [address] Social History Tobacco Use Types [...]
--- OUTSIDE RECORDS SUMMARY | 2018-03-01 01:28 | XMS REPORT | Encounter Summary ---
Author Author [facility] Organization [facility] Address Unknown Phone Unavailable Care Team Providers Care Automotive Sales Professional Name Role Phone Michael Sutton MD Unavailable Unavailable Mary Whittington MD PCP Jessica Valera Unavailable Maggie Puente Unavailable Unavailable Mary Telles APRN Unavailable Bam Ritter MD Unavailable Radha Bo LPN Unavailable Unavailable Jose Sanchez MD Unavailable Encounter Details Date Type Department Care Team Description 05/06/2017 Procedure Pass [facility] Radiology [address] [place] [address] Social History Tobacco Use Types [...]
--- OUTSIDE RECORDS SUMMARY | 2018-03-01 01:28 | XMS REPORT | Encounter Summary ---
Author Author [facility] Organization [facility] Address Unknown Phone Unavailable Care Team Providers Care Enterprise Resource Analyst Name Role Phone Michael Sutton MD Unavailable Unavailable Mary Whittington MD PCP UtJessica weaver Unavailable Maggie Puente Unavailable Unavailable Mary Telles APRN Unavailable aBm Ritter MD Unavailable Radha Bo LPN Unavailable Unavailable Jose Sanchez MD Unavailable Encounter Details Date Type Department Care Team Description 12/16/2017 Orders Only [facility] Jessica Valera ARNP Diarrhea, unspecified Physicians [address] type Ortho and Medical MS [address] [place] [address] [phone] [place] [address] Social History Tobacco Use Types [...] Procedure Name Priority Date/Time Associated Diagnosis Comments C DIFFICILE BY PCR Routine 12/11/2017 Diarrhea, unspecified Results for this 12:00 AM CDT type procedure are in the results section. in this encounter Results * C DIFFICILE BY PCR (12/11/2017) Narrative Performed At Performing Organization Address City/State/Zipcode Phone Number OTHER OUTSIDE LAB in this encounter Visit Diagnoses Diagnosis Diarrhea, unspecified type
--- OUTSIDE RECORDS SUMMARY | 2018-03-01 01:28 | XMS REPORT | Encounter Summary ---
Author Author [facility] Organization [facility] Address Unknown Phone Unavailable Care Team Providers Care Product Development Consultant Name Role Phone Michael Sutton MD Unavailable Unavailable Mary Whittington MD PCP Jessica Valera Unavailable Maggie Puente Unavailable Unavailable Mary Telles APRN Unavailable Bam Ritter MD Unavailable Radha Bo LPN Unavailable Unavailable Jose Sanchez MD Unavailable Encounter Details Date Type Department Care Team Description 12/10/2017 Ancillary Rad Outpatient, Radiologist Orders [address] [place] [address] Social History Tobacco Use Types [...]
--- OUTSIDE RECORDS SUMMARY | 2018-03-01 01:28 | XMS REPORT | Encounter Summary ---
Author Author [facility] Organization [facility] Address Unknown Phone Unavailable Care Team Providers Care Vehicle Painter Name Role Phone Michael Sutton MD Unavailable Unavailable Mary Whittington MD PCP Jessica Valera Unavailable Maggie Puente Unavailable Unavailable Mary Telles HEAT AND FROST INSULATOR Unavailable Bam Ritter MD Unavailable Radha Bo RECEIVING TANK OPERATOR Unavailable Unavailable Jose Sanchez MD Unavailable Reason for Referral * Radiology Services Status Reason Specialty Diagnoses / Referred By Referred To Procedures Contact Contact New Request Radiology Diagnoses Abel Poe MD Left renal mass [address] [place] [address]OM[address]/W [place], [place] [address] * Radiology Services Status Reason Specialty Diagnoses / Referred By Referred To Procedures Contact Contact New Request Radiology Diagnoses Abel Poe MD Left renal mass [address] [place]cedures [place] [address] CHEST WO/W [place], [place] [address] Reason for Visit * Reason Comments Heme/Onc Care Encounter Details Date Type Department Care Team Description 12/09/2017 Office Visit [facility] Abel Poe MD Left renal mass ([facility] Ex[facility] [address] Dx) [facility] [place] [address] [place] [address] [place], [place] [phone] Social History Tobacco Use Types Packs/Day Years [...]
--- OUTSIDE RECORDS SUMMARY | 2018-03-01 01:28 | XMS REPORT | Encounter Summary ---
Author Author [facility] Organization [facility] Address Unknown Phone Unavailable Care Team Providers Care Associate Team Physician Name Role Phone Michael Sutton MD Unavailable Unavailable Mary Whittington MD PCP Jessica Valera Unavailable Maggie Puente Unavailable Unavailable Mary Telles APRN Unavailable Bam Ritter MD Unavailable Camron Bo LPN Unavailable Unavailable Jose Sanchez MD Unavailable Reason for Visit * Reason Comments Prior Authorization Hydrocortisone rectal suppository 25mg Encounter Details Date Type Department Care Team Description 12/10/2017 Telephone [facility] Jessica Valera ARNP Prior Authorization Physicians - Internal [address] (Hydrocortisone rectal Medicine [place] 1023 suppository 25mg ) [place] [address] [address] [facility] [phone] [place] [address] [phone] Social History Tobacco Use Types Packs/Day Years [...] stated she is seeing her PCP in [place], [place] today and will call back office [...] via fax and it was denied. Per commercial sales representative alternative medication that is covered [...]
--- OUTSIDE RECORDS SUMMARY | 2018-03-01 01:28 | XMS REPORT | Encounter Summary ---
Author Author [facility] Organization [facility] Address Unknown Phone Unavailable Care Team Providers Care Physician Representative Name Role Phone Michael Sutton MD Unavailable Unavailable Mary Whittington MD PCP Jessica Valera Unavailable Maggie Puente Unavailable Unavailable Mary Telles COSMETIC MAKER Unavailable Bam Ritter MD Unavailable Radha Bo SUPERVISOR ORDER TAKERS Unavailable Unavailable Jose Sanchez MD Unavailable Reason for Visit * Reason Comments Abdominal pain Constipation Diarrhea Nausea Vomiting Encounter Details Date Type Department Care Team Description 12/09/2017 Office Visit [facility] Jessica Valera ARNP Diarrhea, unspecified Physicians - Internal [address] type (Primary Dx); Medicine [place] [address] Epigastric pain; [place] [address] Chronic pancreatitis, [address] [phone] [place] [address] type (HCC); [phone] Nausea and vomiting, intractability of vomiting not [...] if you have any questions or concerns. [phone]. in this encounter Progress Notes * Jessica [...] has been to cancer Center treatment in [place] regarding a left lung nodule. She is scheduled to go back there again early in December. She also had a repeat CT chest/abdomen CT today which shows a stable left lobe pulmonary or pleural nodule which is apparently unchanged from previous imaging. Dr. Poe/ nephrology who ordered a CT recommended repeat imaging in 6 months. She plans to discuss this recommendation with her [place] provider as well. Since I saw her [...] repeat imaging 6 months. Patient seen at [facility] after 08/2017 OV, has follow up [...] with her colonoscopy in 2017 done in [place]. Will treat internal hemorrhoids with Anusol HC suppository nightly for at least 7 days and treat external hemorrhoids with Preparation H [id number] 2-3 times a day. She is to [...] review. 5. She will follow-up at the [facility] in [place] early December as planned regarding the left [...] Address City/State/Zipcode Phone Number MAIN LAB [address] [place] [address] * GIARDIA SCREEN,FECAL (12/11/2017) Narrative Performed At Performing Organization Address City/[facility]/Zipcode Phone Number MAIN LAB [address] [place] [address] * CRYPTOSPORIDUM,FECAL (12/11/2017) Specimen Stool Narrative Performed At Performing Organization Address City/[facility]/Zipcode Phone Number MAIN LAB [address] [place] [address] * CULTURE-FECES W/SENSITIVITY (12/11/2017) Specimen Stool Narrative Performed At Performing Organization Address [facility] Phone [facility] [address] [place] [address] * C DIFFICILE BY PCR (12/11/2017) Narrative Performed At Performing Organization Address City/State/Zipcode Phone Number OTHER OUTSIDE LAB in this encounter Visit Diagnoses Diagnosis Diarrhea, unspecified type - Primary Epigastric pain Abdominal pain, epigastric Chronic pancreatitis, unspecified pancreatitis type (HCC) Nausea and vomiting, intractability of vomiting not specified, unspecified vomiting type
--- OUTSIDE RECORDS SUMMARY | 2018-03-01 01:28 | XMS REPORT | Encounter Summary ---
Author Author [facility] Organization [facility] Address Unknown Phone Unavailable Care Team Providers Care Barrow Worker Name Role Phone Michael Sutton MD Unavailable Unavailable Mary Whittington MD PCP Jessica Valera Unavailable Maggie Puente Unavailable Unavailable Mary Telles HEEL CURVER Unavailable Bam Ritter MD Unavailable Radha Bo LPN Unavailable Unavailable Jose Sanchez MD Unavailable Reason for Visit * Reason Comments Prior Authorization Viokace Encounter Details Date Type Department Care Team Description 12/13/2017 Telephone [facility] Jessica Valera ARNP Prior Authorization Physicians [address] (Viokace ) Ortho and Medical [place] [address] [place] [address] [phone] [place] [address] Social History Tobacco Use Types [...] CDT Contacted patient's insurance at phone number [phone] to check the status of PA on medication Viokace, PA has been approved with authorized dates of 12/11- with no end date given yet. * Telephone Encounter - Senait Jarquin - 12/13/2017 10:42 AM CDT Completed PA for medication Viokace diagnosis chronic pancreatitis through [employer] guillermo code [id number], waiting for approval or denial in this encounter Plan of Treatment Date Type Specialty Care Team Description 12/09/2017 Procedure Pass Oncology 12/09/2017 Procedure Pass Oncology as of this encounter Visit Diagnoses Not on filein this encounter
--- OUTSIDE RECORDS SUMMARY | 2018-03-01 01:28 | XMS REPORT | Encounter Summary ---
Author Author [facility] Organization [facility] Address Unknown Phone Unavailable Care Team Providers Care Brownfield Redevelopment Site Manager Name Role Phone Michael Sutton MD Unavailable Unavailable Mary Whittington MD PCP Jessica Valera Unavailable Maggie Puente Unavailable Unavailable Mary Telles APRN Unavailable Bam Ritter MD Unavailable Radha Bo LPN Unavailable Unavailable Jose Sanchez MD Unavailable Encounter Details Date Type Department Care Team Description 05/06/2017 Procedure Pass [facility] Radiology [address] [place] [address] Social History Tobacco Use Types [...]
--- OUTSIDE RECORDS SUMMARY | 2018-03-01 01:28 | XMS REPORT | Encounter Summary ---
Author Author [facility] Organization [facility] Address Unknown Phone Unavailable Care Team Providers Care Internal Auditor Name Role Phone Michael Sutton MD Unavailable Unavailable Mary Whittington MD PCP Jessica Valera Unavailable Maggie Puente Unavailable Unavailable Mary Telles APRN Unavailable Bam Ritter MD Unavailable Radha Bo LPN Unavailable Unavailable oJse Sanchez MD Unavailable Reason for Visit * Reason Comments C Diff Positive C Diff Encounter Details Date Type Department Care Team Description 12/13/2017 Telephone [facility] Jessica Valera ARNP C Diff (Positive C Diff) Physicians [address] [facility] Ortho and Medical MS [address] [place] [address] [address] [facility] [phone] [place] [address] Social History Tobacco Use Types [...] and cleaning with a 1:10 bleach solution, [email or web address] message sent with additional information. Pt to call PRN and w/ progress report after finishing abx. * Telephone Encounter - Radha Bo LPN - 12/13/2017 11:39 AM CDT Attempted to contact pt. LVM to return call. * Telephone Encounter - Jessica Valera ARNP - 12/13/2017 11:35 AM CDT Due to her significant N/V called Luke/Pharmacist at [facility] to see if Vanco 125 mg [...]
--- OUTSIDE RECORDS SUMMARY | 2018-03-01 01:28 | XMS REPORT | Encounter Summary ---
Author Author [facility] Organization [facility] Address Unknown Phone Unavailable Care Team Providers Care Kettle Operator Head Name Role Phone Michael Sutton MD Unavailable Unavailable Mary Whittington MD PCP Jessica Valera Unavailable Maggie Puente Unavailable Unavailable Mary Telles APRN Unavailable Bam Ritter MD Unavailable Radha Bo LPN Unavailable Unavailable Jose Sanchez MD Unavailable Reason for Visit * Reason Comments Other Encounter Details Date Type Department Care Team Description 12/13/2017 Telephone [facility] Randy Nunez MD Other Physicians - Internal [address] [facility] Medicine [place] [address] [place] [address] [address] [facility] [phone] [place] [address] [phone] Social History Tobacco Use Types Packs/Day Years [...]
--- OUTSIDE RECORDS SUMMARY | 2018-03-01 01:28 | XMS REPORT | Encounter Summary ---
Author Author [facility] Organization [facility] Address Unknown Phone Unavailable Care Team Providers Care School Cafeteria Head Cook Name Role Phone Michael Sutton MD Unavailable Unavailable Mary Whittington MD PCP Jessica Valera Unavailable Maggie Puente Unavailable Unavailable Mary Telles APRN Unavailable Bam Ritter MD Unavailable Radha Bo LPN Unavailable Unavailable Jose Sanchez MD Unavailable Encounter Details Date Type Department Care Team Description 12/10/2017 Ancillary Rad Outpatient, Radiologist Diagnosis unknown Orders [address] [place] [address] Social History Tobacco Use Types [...]
--- OUTSIDE RECORDS SUMMARY | 2018-03-01 01:29 | XMS REPORT | Encounter Summary ---
Author Author [facility] Organization [facility] Address Unknown Phone Unavailable Care Team Providers Care Instrumentation Designer Name Role Phone Michael Sutton MD Unavailable Unavailable Mary Whittington MD PCP Jessica Valera Unavailable Maggie Puente Unavailable Unavailable Mary Telles APRN Unavailable Bam Ritter MD Unavailable Radha Bo LPN Unavailable Unavailable Jose Sanchez MD Unavailable Reason for Visit * Reason Comments Other Encounter Details Date Type Department Care Team Description 12/04/2017 Telephone [facility] Randy Nunez MD Other Physicians - Internal [address] [facility] Medicine [place] [address] [place] [address] [address] [facility] [phone] [place] [address] [phone] Social History Tobacco Use Types Packs/Day Years [...]
--- OUTSIDE RECORDS SUMMARY | 2018-03-01 01:29 | XMS REPORT ---
Author Author SAI CARMEN [facility] Address [address] [place] [address] Care Team Providers Care Lead Teller Name Role Phone MARCIO GIBBSY Unavailable PROBLEMS Type Condition ICD9-CM Code [id number] Code Onset Dates Condition Status SNOMED Code Problem Polydipsia R63.1 Active 58551379 Problem Trichotillomania F63.3 Active 36127347 Problem Atelectasis J98.11 Active 72970643 Problem Intestinal malabsorption, unspecified K90.9 Active 62581238 Problem Chronic fatigue R53.82 Active 80863919 Problem Generalized social phobia F40.11 Active 19641921 Problem Restless leg syndrome G25.81 Active 30885924 Problem Moderate episode of recurrent major depressive disorder F33.1 Active 408123744 Problem Chronic post-traumatic stress disorder (PTSD) F43.12 Active 862008798 Problem History of renal cell carcinoma Z85.528 Active 636475562 Problem Chronic tension-type headache, intractable G44.221 Active 243468905 Problem Nodule of left lung R91.1 Active 822933653 Problem Hirsuties L68.0 Active 152586396 Problem FH: polycystic ovary Z84.2 Active 916633999 Problem Morbid (severe) obesity due to excess calories E66.01 Active 103988524 Problem Chronic pancreatitis K86.1 Active 975831718 Problem Hyperlipidemia, mixed E78.2 Active 988737156 Problem Asthma J45.909 Active 808400659 ALLERGIES No Information ENCOUNTERS Encounter Location Date Diagnosis [facility] [id number] [address] Mar, [facility] [id number] [address] 4582 Feb, [facility] [id number] [address] 1708 Feb, [facility] [id number] [place] [address] 96450- 8531 Jan, Acute pain of right knee M25.561 ; Right upper quadrant abdominal pain R10.11 and BMI 45.0-49.9, adult Z68.42 [facility] [id number] [place] [address] 33696- 6541 Jan, [facility] [id number] [place] [address] 68742- 3974 Jan, [facility] [id number] [place] [address] 47683- 2435 Dec, [facility] [id number] [place] [address] 12214- 5242 Dec, Intestinal malabsorption, unspecified K90.9 and Diarrhea, unspecified R19.7 [facility] [id number] [place] [address] 84938- 5851 Dec, [facility] [id number] [place] [address] 82322- 3774 Dec, Strep throat J02.0 ; Intestinal malabsorption, unspecified K90.9 ; Diarrhea, unspecified R19.7 ; Postoperative seroma involving digestive system after non-digestive system procedure K91.873 ; Hyperlipidemia, mixed E78.2 and BMI 45.0-49.9, adult Z68.42 [facility] [id number] [place] [address] 60542- 5888 Dec, [facility] [id number] [place] [address] 31607- 6460 Dec, Nausea R11.0 [facility] [id number] [place] [address] 98090- 7349 Dec, [facility] [id number] [place] [address] 85733 -6367 Dec, Sore throat J02.9 ; Strep throat J02.0 and BMI 45.0-49.9, adult Z68.42 [facility] [address] [facility] [id number] [place] [address]- 4369 Dec, [facility] [address] [facility] [id number] [place] [address]- 2017 Dec, [facility] [address] [facility] [id number] [place] [address]- 1591 Dec, [facility] [address] [facility] [id number] [address] 6995 Dec, [facility] [address] [facility] [id number] [place] [address]- 5223 Dec, [facility] [address] [facility] [id number] [place] [address]- 9305 Dec, [facility] [address] [address]- 5429 Dec, [facility] [id number] [address]- 6146 Dec, [facility] [id number] [address]- 0731 Dec, Clostridium difficile colitis A04.72 ; Intractable vomiting with nausea, unspecified vomiting type R11.2 and BMI 45.0-49.9, adult Z68.42 [facility] [address] [address]- 3612 Dec, [facility] [id number] [address]- 0704 Nov, [facility] [id number] [address]- 8331 Nov, [facility] [id number] [address]- 6175 Nov, [facility] [id number] [address]- 1454 Nov, [facility] [address] [address] Nov, [place] [id number] [place] [address] 57909- 5713 Nov, Hyperlipidemia, mixed E78.2 [facility] [id number] [place] [address] 25558 -0778 Nov, Acute suppurative otitis media of right ear without spontaneous rupture of tympanic membrane, recurrence not specified H66.001 and BMI 45.0-49.9, adult Z68.42 [facility] [id number] [place] [address] 09048- 4452 Nov, Hyperlipidemia, mixed E78.2 [facility] [id number] [place] [address] 42635- 2673 Nov, [place] [address] 50982- 6970 Nov, [facility] [id number] [place] [address] 54582- 0193 Nov, Nodule of left lung R91.1 [id number] [place] [address] 24665- 1731 Nov, Medicare annual wellness visit, initial Z00.00 [...] adult Z68.42 and Encounter for immunization Z23 [place] [id number] [place] [address] 82781- 6703 October, [place] [address] 82553- 7935 October, Nodule of left lung R91.1 [facility] [id number] [place] [address] 35470- 6723 October, Nodule of left lung R91.1 [facility] [id number] [place] [address] 70799- 4956 October, Recurrent major depressive disorder, in partial remission F33.41 ; Restless leg syndrome G25.81 ; Generalized social phobia F40.11 ; Chronic post-traumatic stress disorder (PTSD) F43.12 ; BMI 45.0-49.9, adult Z68.42 and Trichotillomania F63.3 [place] [id number] [place] [address] 37745- 2828 October, [facility] [id number] [place] [address] 71848- 8081 Sep, Chronic fatigue R53.82 and BMI 45.0-49.9, adult Z68.42 [facility] [id number] [place] [address] 58096- 5754 Aug, [facility] [id number] [place] [address] 58434- 8170 Jul, Restless leg syndrome G25.81 and B12 deficiency E53.8 [facility] [id number] [place] [address] 75204- 5759 Jul, [facility] [id number] [place] [address] 01337- 0235 Jul, [place] [id number] [place] [address] 16180- 0838 Jun, [facility] [id number] [place] [address] 14626- 9720 Jun, Fatigue, unspecified type R53.83 ; History of renal cell carcinoma Z85.528 ; Chronic pancreatitis K86.1 ; Restless leg syndrome G25.81 ; Dark urine R82.99 and BMI 45.0-49.9, adult Z68.42 [place] [address] [address]- 0684 Jun, [facility] [address] [address]- 1767 Jun, [facility] [address] [address]- 3579 Jun, [facility] [id number] [place] [address] 84098- 4669 Jun, [facility] [address] [address]- 6971 May, Chronic post-traumatic stress disorder (PTSD) F43.12 ; Moderate episode of recurrent major depressive disorder F33.1 ; Trichotillomania F63.3 and Generalized social phobia F40.11 [place] [id number] [place] [address] 86109- 0947 May, [place] [address] [address]- 8209 May, Chronic post-traumatic stress disorder (PTSD) F43.12 ; Moderate episode of recurrent major depressive disorder F33.1 ; Trichotillomania F63.3 and Generalized social phobia F40.11 [place] [address] [address]- 2363 May, Hyperlipidemia, mixed E78.2 ; Morbid (severe) obesity due to excess calories E66.01 ; Chronic post-traumatic stress disorder (PTSD) F43.12 ; Moderate episode of recurrent major depressive disorder F33.1 ; Trichotillomania F63.3 and Generalized social phobia F40.11 [place] [address] [address]- 7300 Apr, [place] [address] [address]- 9389 Apr, Hyperlipidemia, mixed E78.2 ; Morbid (severe) obesity due to excess calories E66.01 ; Chronic post-traumatic stress disorder (PTSD) F43.12 ; Moderate episode of recurrent major depressive disorder F33.1 ; Trichotillomania F63.3 and Generalized social phobia F40.11 [place] [id number] [place] [address] 67902- 1800 Apr, Trichotillomania F63.3 ; Generalized social phobia F40.11 ; Chronic post-traumatic stress disorder (PTSD) F43.12 and Moderate episode of recurrent major depressive disorder F33.1 [place] [id number] [place] [address] 86002- 8894 Apr, [place] [address] 42955- 1211 Apr, [place] [id number] [place] [address] 32256- 8374 Mar, Moderate episode of recurrent major depressive disorder F33.1 ; Trichotillomania F63.3 ; Chronic post-traumatic stress disorder (PTSD) F43.12 ; Generalized social phobia F40.11 and Restless leg syndrome G25.81 [place] [address] 55168- 2635 Mar, [place] [id number] [place] [address] 75429- 9322 Mar, [place] [id number] [place] [address] 89104- 6121 Feb, Left kidney mass N28.89 [place] [id number] [place] [address] 90615- 5272 Jan, [place] [address] 99255- 8660 Dec, Polydipsia R63.1 ; Chronic pancreatitis K86.1 and Fatigue, unspecified type R53.83 [place] [id number] [place] [address] 14247- 8780 Nov, [place] [address] [address]- 1644 13 Nov, 2016 [facility] [id number] [place] [address] 49683- 2554 Nov, Headache around the eyes R51 [facility] [id number] [place] [address] 25721- 0606 Nov, [facility] [id number] [place] [address] 75824- 1391 October, STD exposure Z20.2 [facility] [id number] [place] [address] 51789- 2697 October, STD exposure Z20.2 [facility] [id number] [place] [address] 25502- 6615 October, Chronic post-traumatic stress disorder (PTSD) F43.12 ; Generalized social phobia F40.11 ; Trichotillomania F63.3 and Restless leg syndrome G25.81 [facility] [id number] [place] [address] 56893- 0759 October, [facility] [id number] [place] [address] 65743- 0661 Sep, [facility] [id number] [place] [address] 82638- 4348 Aug, [facility] [id number] [place] [address] 22431- 5286 Aug, [facility] [id number] [place] [address] 20312- 6090 Aug, Neck mass R22.1 [facility] [id number] [place] [address] 06148- 2562 Aug, Atelectasis J98.11 [facility] [id number] [place] [address] 96105- 7192 28 Jul, 2016 Hyperlipidemia, mixed E78.2 ; Atypical pneumonia J18.9 and Neck mass R22.1 [place] [id number] [place] [address] 00831- 0719 15 Jul, 2016 Hemoptysis R04.2 [place] [id number] [place] [address] 83330- 1481 08 Jul, 2016 Acute non-recurrent pansinusitis J01.40 ; Hemoptysis R04.2 ; Polydipsia R63.1 and Malaise R53.81 [facility] [id number] [place] [address] 38194 -3936 May, Other viral agents as the cause of diseases classified elsewhere B97.89 and Acute upper respiratory infection, unspecified J06.9 [facility] [id number] [place] [address] 53200 -4920 Mar, Nausea R11.0 [facility] [id number] [place] [address] 17989 -1045 Dec, Hives L50.9 [place] [id number] [place] [address] 03203- 0896 Dec, [facility] [id number] [place] [address] 10854 -3219 Dec, Cutaneous abscess of limb, unspecified L02.419 ; Cellulitis of unspecified part of limb L03.119 ; Encounter for incision and drainage procedure Z01.89 and Encounter for recheck of abscess following incision and drainage Z09 [facility] [id number] [place] [address] 40127 -2152 09 Dec, 2015 Abscess of leg, right L02.415 [id number] [place] [address] 26970- 0273 Dec, Cellulitis of unspecified part of limb L03.119 and Cutaneous abscess of limb, unspecified L02.419 [id number] [place] [address] 74045- 8117 Dec, [place] [id number] [place] [address] 69480- 7174 Dec, [facility] [id number] [place] [address] 99013 -1507 Aug, [facility] [id number] [place] [address] 65607- 1574 Aug, [facility] [id number] [place] [address] 16309 -3931 04 Jul, 2015 Pain in unspecified wrist M25.539 and Back pain, thoracic M54.6 [facility] [id number] [place] [address] 82470 -8942 Jun, Strain of right wrist, initial encounter S66.911A [place] [id number] [place] [address] 43405- 8873 11 Jun, 2015 Chronic pancreatitis, unspecified pancreatitis type K86.1 ; Hirsuties L68.0 ; Morbid (severe) obesity due to excess calories E66.01 ; Chronic pancreatitis K86.1 and Asthma J45.909 [place] [id number] [place] [address] 17706- 4682 May, [place] [id number] [place] [address] 81260- 2466 May, Hyperlipidemia, mixed E78.2 and Muscle spasm of back M62.830 [place] [id number] [place] [address] 83407- 9437 30 Apr, 2015 [place] [id number] [place] [address] 87868- 8305 16 Apr, 2015 Torticollis M43.6 [place] [id number] [place] [address] 54873- 4381 09 Apr, 2015 Right-sided thoracic back pain M54.6 [place] [id number] [place] [address] 82479- 2297 15 Mar, 2015 Rash R21 [place] [address] [address]- 4941 Mar, [facility] [id number] [place] [address] 32177- 2394 Jan, [facility] [id number] [address]- 5777 Dec, [facility] [id number] [place] [address] 45277- 0651 Dec, Urinary frequency 788.41 and Nocturia more than twice per night 788.43 [facility] [id number] [place] [address] 48277- 6394 Nov, [facility] [id number] [place] [address] 82918- 8929 Nov, [facility] [id number] [place] [address] 62645- 9321 Nov, Abdominal pain 789.00 [facility] [id number] [place] [address] 46339- 7905 October, TDAP DX V06.1 [facility] [id number] [place] [address] 11363- 2588 October, [facility] [address] [address]- 9518 October, Disturbance of skin sensation 782.0 ; Wrist pain, right 719.43 ; Hyperlipidemia 272.4 and Skin lesion of face 709.9 [facility] [address] [address]- 9878 Sep, [facility] [id number] [place] [address] 52892- 1891 Sep, [facility] [address] [address]- 9751 Aug, [facility] [id number] [place] [address] 56237- 5044 Aug, [facility] [place] [facility] [address] [id number] [place] [address]- 5979 23 Aug, 2014 [facility] [place] [facility] [address] [id number] [place] [address]- 0090 23 Aug, 2014 [facility] [place] [facility] [address] [id number] [place] [address]- 9448 16 Aug, 2014 [facility] [place] [facility] [address] [id number] [place] [address]- 0399 16 Aug, 2014 [facility] [place] [facility] [address] [id number] [place] [address]- 5819 14 Aug, 2014 [facility] [place] [facility] [address] [id number] [place] [address]- 6708 14 Aug, 2014 [facility] [place] [facility] [address] [id number] [place] [address]- 5923 Aug, [facility] [place] [facility] [address] [id number] [place] [address]- 1004 Aug, [facility] [place] [facility] [address] [id number] [place] [address]- 6200 Aug, [facility] [place] [facility] [address] [id number] [place] [address]- 7428 Aug, [facility] [place] [facility] [address] [id number] [place] [address]- 2171 Aug, [facility] [place] [facility] [address] [id number] [address]- 1910 Aug, [facility] [place] [facility] [address] [id number] [place] [address]- 8819 Jul, [facility] [place] [facility] [address] [id number] [place] [address]- 4841 Jul, [facility] [place] [facility] [address] [id number] [place] [address]- 6823 Jul, [facility] [place] [facility] [address] [id number] [place] [address]- 8720 13 Jul, 2014 [facility] [address] [id number] [place] [address]- 3646 Jul, [facility] [place] [facility] [address] [id number] [place] [address]- 8066 Jul, [facility] [address] [id number] [place] [address]- 1989 Jun, [facility] [place] [facility] [address] [id number] [place] [address]- 4635 Jun, [facility] [address] [id number] [place] [address]- 5785 Jun, [facility] [place] [facility] [address] [id number] [place] [address]- 7831 Jun, [facility] [address] [id number] [place] [address]- 3376 Jun, [facility] [address] [id number] [place] [address]- 9489 Jun, [facility] [place] [facility] [address] [id number] [place] [address]- 7467 Jun, [facility] [address] [id number] [place] [address]- 1587 15 Jun, 2014 [facility] [place] [facility] [address] [id number] [place] [address]- 2076 May, [facility] [place] [facility] [address] [id number] [place] [address]- 4181 May, [facility] [place] [facility] [address] [id number] [place] [address] 18 May, 2014 [facility] [place] [facility] [address] [id number] [place] [address] 18 May, 2014 [facility] [place] [facility] [address] [id number] [place] [address] May, [facility] [place] [facility] [address] [id number] [place] [address] May, [facility] [place] [facility] [address] [id number] [place] [address] May, [facility] [place] [facility] [address] [id number] [place] [address] May, [facility] [place] [facility] [address] [id number] [place] [address] May, [facility] [place] [facility] [address] [id number] [place] [address] May, [facility] [place] [facility] [address] [id number] [place] [address] May, [facility] [place] [facility] [address] [id number] [place] [address] May, [facility] [place] [facility] [address] [id number] [place] [address] Apr, [facility] [place] [facility] [address] [id number] [place] [address] Apr, [facility] [place] [facility] [address] [id number] [place] [address] Apr, [facility] [place] [facility] [address] [id number] [place] [address] Apr, [facility] [place] [facility] [address] [id number] [place] [address]- [address] Apr, [facility] [place] [facility] [address] [id number] [place] [address] Apr, [facility] [place] [facility] [address] [id number] [place] [address] Apr, [facility] [place] [facility] [address] [id number] [place] [address] Apr, [facility] [place] [facility] [address] [id number] [place] [address]- [address] Apr, [facility] [place] [facility] [address] [id number] [place] [address] Apr, [facility] [place] [facility] [address] [id number] [place] [address]- [address] Apr, [facility] [place] [facility] [address] [id number] [place] [address] Apr, [facility] [place] [facility] [address] [id number] [place] [address] Mar, [facility] [place] [facility] [address] [id number] [place] [address] Mar, [facility] [place] [facility] [address] [id number] [place] [address] Mar, [facility] [place] [facility] [address] [id number] [place] [address]- [address] Mar, [facility] [place] [facility] [address] [id number] [place] [address] 10 Feb, 2014 [facility] [place] [facility] [address] [id number] [place] [address] 10 Feb, 2014 [facility] [place] [facility] [address] [id number] [place] [address] 05 Feb, 2013 [facility] [place] [facility] [address] [id number] [place] [address] Feb, 2013 [facility] [place] [facility] [address] [id number] [place] [address] Feb, 2013 [facility] [place] [facility] [address] [id number] [place] [address] Feb, [facility] [place] [facility] [address] [id number] [place] [address] Jan, [facility] [place] [facility] [address] [id number] [place] [address] Jan, [facility] [place] [facility] [address] [id number] [place] [place] [address] Jan, [facility] [place] [facility] [address] [id number] [place] [address]165 Jan, [facility] [place] [facility] [address] [id number] [place] [address] 6883 Jan, [facility] [place] [facility] [address] [id number] [place] [address] 1678 Jan, [facility] [place] [facility] [address] [id number] [place] [address]- 1064 Jan, [facility] [place] [facility] [address] [id number] [place] [address]- 6698 Jan, [facility] [place] [facility] [address] [id number] [place] [address]- 9321 Jan, [facility] [place] [facility] [address] [id number] [place] [address]- 6069 Jan, [facility] [place] [facility] [address] [id number] [place] [address]- 8168 Jan, [facility] [place] [facility] [address] [id number] [place] [address]- 9290 Jan, [facility] [place] [facility] [address] [id number] [place] [address]- 0477 Jan, [facility] [place] [facility] [address] [id number] [place] [address]- 9569 Jan, [facility] [place] [facility] [address] [id number] [place] [address]- 8447 Dec, [facility] [place] [facility] [address] [id number] [place] [address]- 2788 Dec, [facility] [place] [facility] [address] [id number] [place] [address]- 8213 Dec, [facility] [place] [facility] [address] [id number] [place] [address]- 5241 Dec, [facility] [place] [facility] [address] [id number] [place] [address]- 5036 Nov, [facility] [place] [facility] [address] [id number] [place] [address]- 2980 Nov, [facility] [place] [facility] [address] [id number] [place] [address]- 2165 Nov, [facility] [place] [facility] [address] [id number] [place] [address]- 9720 Nov, [facility] [place] [facility] [address] [id number] [place] [address]- 4810 Nov, [facility] [place] [facility] [address] [id number] [place] [address]- 5846 October, [facility] [place] [facility] [address] [id number] [place] [address]- 1884 October, [facility] [place] [facility] [address] [id number] [place] [address]- 1050 October, [facility] [place] [facility] [address] [id number] [place] [address]- 2262 October, [facility] [place] [facility] [address] [id number] [place] [address]- 3375 October, [facility] [place] [facility] [address] [id number] [place] [address]- 0004 October, [facility] [place] [facility] [address] [id number] [place] [address]- 4319 October, [facility] [place] [facility] [address] [id number] [place] [address]- 4512 October, [facility] [place] [facility] [address] [id number] [place] [address]- 3683 October, [facility] [place] [facility] [address] [id number] [place] [address]- 6333 October, [facility] [place] [facility] [address] [id number] [place] [address]- 7674 October, [facility] [place] [facility] [address] [id number] [place] [address]- 1684 October, [facility] [place] [facility] [address] [id number] [place] [address]- 1223 October, [facility] [place] [facility] [address] [id number] [place] [address]- 0574 October, [facility] [place] [facility] [address] [id number] [place] [address]- 8990 Sep, [facility] [place] [facility] [address] [id number] [place] [address]- 9525 Sep, [facility] [place] [facility] [address] [id number] [place] [address]- 2444 Sep, [facility] [place] [facility] [address] [id number] [place] [address]- 8213 Sep, [facility] [place] [facility] [address] [id number] [place] [address]- 5136 Sep, [facility] [place] [facility] [address] [id number] [place] [address]- 1460 Sep, [facility] [place] [facility] [address] [id number] [place] [address]- 6565 Sep, [facility] [place] [facility] [address] [id number] [place] [address]- 4592 Sep, [facility] [place] [facility] [address] [id number] [place] [address]- 2783 Sep, [facility] [place] [facility] [address] [id number] [place] [address]- 3057 Sep, [facility] [place] [facility] [address] [id number] [place] [address]- 7287 Sep, [facility] [place] [facility] [address] [id number] [place] [address]- 6480 Sep, [facility] [place] [facility] [address] [id number] [place] [address]- 2557 Sep, [facility] [place] [facility] [address] [id number] [place] [address]- 8044 Sep, [facility] [place] [facility] [address] [id number] [place] [address]- 5123 Sep, [facility] [place] [facility] [address] [id number] [place] [address]- 7327 Aug, [facility] [place] [facility] [address] [id number] [place] [address]- 6778 Aug, [facility] [place] [facility] [address] [id number] [place] [address]- 4147 Aug, [facility] [place] [facility] [address] [id number] [place] [address]- 1850 Aug, [facility] [place] [facility] [address] [id number] [place] [address]- 0166 Jul, [facility] [place] [facility] [address] [id number] [place] [address]- 5834 Jul, [facility] [place] [facility] [address] [id number] [place] [address]- 4996 Jul, [facility] [place] [facility] [address] [id number] [place] [address]- 0165 Jul, [facility] [place] [facility] [address] [id number] [place] [address]- 1515 Jun, [facility] [place] [facility] [address] [id number] [place] [address]- 1623 Jun, [facility] [place] [facility] [address] [id number] [place] [address]- 6920 Jun, [facility] [place] [facility] [address] [id number] [place] [address]- 6062 Jun, [facility] [place] [facility] [address] [id number] [place] [address]- 2054 10 Jun, 2013 [facility] [address] [id number] [place] [address]- 4532 10 Jun, 2013 [facility] [place] [facility] [address] [facility] [id number] [place] [address]- 6792 08 Jun, 2013 [facility] [address] [id number] [place] [address]- 6835 08 Jun, 2013 [facility] [place] [facility] [address] [id number] [place] [address]- 6497 20 May, 2013 [facility] [address] [id number] [place] [address] 20 May, 2013 [facility] [place] [facility] [address] [id number] [place] [address]- 1816 18 May, 2013 [facility] [id number] [address] 5843 18 May, 2013 [facility] [address] [id number] [place] [address]- 8954 17 May, 2013 [facility] [id number] [id number] 17 May, 2013 [facility] [id number] [address]- 0014 17 May, 2013 [facility] [place] [facility] [address] [id number] [place] [address]- 9179 17 May, 2013 [facility] [place] [facility] [address] [id number] [place] [address]- 1972 16 May, 2013 [facility] [place] [facility] [address] [id number] [place] [address]- 8260 16 May, 2013 [facility] [place] [facility] [address] [facility] [id number] [place] [address]- 0496 14 May, 2013 [facility] [place] [facility] [address] [facility] [id number] [place] [address]- 0469 14 May, 2013 [facility] [place] [facility] [address] [id number] [place] [address]- 9435 13 May, 2013 [facility] [address] [id number] [place] [address]- 1958 May, [facility] [place] [facility] [address] [id number] [place] [address]- 3086 May, [facility] [address] [id number] [place] [address]- 2365 May, [facility] [place] [facility] [address] [id number] [place] [address]- 2968 May, [facility] [address] [id number] [place] [address]- 5487 May, [facility] [place] [facility] [address] [id number] [place] [address]- 8404 Apr, [facility] [place] [facility] [address] [id number] [place] [address]- 2447 Apr, [facility] [address] [id number] [place] [address]- 6093 Apr, [facility] [place] [facility] [address] [id number] [place] [address]- 4407 Apr, [facility] [address] [id number] [place] [address]- 2934 Aug, [facility] [place] [facility] [address] [id number] [place] [address]- 2013 Aug, [facility] [place] [facility] [address] [id number] [place] [address]- 6360 06 Aug, 2012 [facility] [place] [facility] [address] [id number] [place] [address]- 2107 05 Aug, 2012 [facility] [place] [facility] [address] [id number] [place] [address]- 9983 04 Jul, 2012 [facility] [place] [facility] [address] [id number] [place] [address]- 0596 Jun, [facility] [address] [id number] [place] [address]- 1962 Jun, [facility] [place] [facility] [address] [id number] [place] [address]- 9534 Jun, [facility] [place] [facility] [address] [facility] [id number] [place] [address]- 2129 Jun, [facility] [place] [facility] [address] [id number] [place] [address]- 9846 May, [facility] [place] [facility] [address] [id number] [place] [address]- 0142 May, [facility] [place] [facility] [address] [id number] [place] [address]- 8346 May, [facility] [place] [facility] [address] [id number] [place] [address]- 4883 May, [facility] [place] [facility] [address] [id number] [place] [address]- 3503 May, [facility] [place] [facility] [address] [id number] [place] [address]- 7742 May, [facility] [place] [facility] [address] [id number] [place] [address]- 9209 May, [facility] [place] [facility] [address] [id number] [address]- 3119 Apr, [facility] [place] [facility] [address] [id number] [place] [address]- 0766 Apr, [facility] [place] [facility] [address] [id number] [place] [address]- 3443 Apr, [facility] [place] [facility] [address] [id number] [place] [address]- 8255 Apr, [facility] [place] [facility] [address] [id number] [place] [address]- 4909 Apr, [facility] [place] [facility] [address] [id number] [place] [address]- 2062 Apr, [facility] [place] [facility] [address] [id number] [place] [address]- 4040 Apr, [facility] [place] [facility] [address] [id number] [place] [address] Mar, [facility] [place] [facility] [address] [id number] [place] [address]- 3519 Mar, [facility] [place] [facility] [address] [id number] [place] [address]- 9919 Mar, [facility] [place] [facility] [address] [id number] [place]108 Mar, [facility] [place] [facility] [address] [id number] [place] [address]- 2094 Mar, [facility] [place] [facility] [address] [id number] [place] [address]- 8139 Mar, [facility] [place] [facility] [address] [id number] [place] [address]- 2057 Mar, [facility] [place] [facility] [address] [id number] [place] [address]- 9564 Mar, [facility] [place] [facility] [address] [facility] [id number] [place] [address]- 0319 Mar, [facility] [place] [facility] [address] [id number] [place] [address]- 1060 Mar, [facility] [place] [facility] [address] [id number] [place] [address]- 2168 Mar, [facility] [place] [facility] [address] [id number] [place] [address]- 6037 Mar, [facility] [place] [facility] [address] [facility] [id number] [place] [address]- 0686 Feb, [facility] [place] [facility] [address] [id number] [place] [address]- 8376 Jan, [facility] [place] [facility] [address] [id number] [place] [address]- 1701 Jan, [facility] [place] [facility] [address] [id number] [place] [address]- 8057 Jan, [facility] [place] [facility] [address] [id number] [place] [address]- 1070 Jan, [facility] [place] [facility] [address] [id number] [place] [address]- 9015 Jan, [facility] [address] [id number] [place] [address]- 0283 Dec, [facility] [place] [facility] [address] [id number] [place] [address]- 0460 Dec, [facility] [address] [id number] [place] [address]- 9977 Nov, [facility] [address] [id number] [place] [address]- 1946 Nov, [facility] [place] [facility] [address] [id number] [place] [address]- 9127 Nov, [facility] [place] [facility] [address] [id number] [place] [address]- 7566 October, [facility] [place] [facility] [address] [id number] [place] [address]- 3977 October, [facility] [place] [facility] [address] [id number] [place] [address]- 0992 October, [facility] [place] [facility] [address] [id number] [place] [address]- 8759 October, [facility] [place] [facility] [address] [id number] [place] [address]- 6385 October, [facility] [place] [facility] [address] [id number] [place] [address]- 3228 October, [facility] [place] [facility] [address] [id number] [place] [address]- 4475 October, [facility] [place] [facility] [address] [id number] [place] [address]- 3549 Sep, [facility] [place] [facility] [address] [id number] [place] [address]- 3466 Sep, [facility] [place] [facility] [address] [id number] [place] [address]- 6515 Sep, [facility] [place] [facility] [address] [id number] [place] [address]- 4254 Sep, [facility] [place] [facility] [address] [id number] [place] [address]- 3604 24 Sep, 2011 [facility] [place] [facility] [address] [id number] [place] [address]- 9458 19 Sep, 2011 [facility] [place] [facility] [address] [id number] [place] [address]- 7946 17 Sep, 2011 [facility] [place] [facility] [address] [id number] [place] [address]- 0121 16 Sep, 2011 [facility] [place] [facility] [address] [id number] [place] [address]- 2534 16 Sep, 2011 [facility] [place] [facility] [address] [id number] [place] [address]- 2604 14 Sep, 2011 [facility] [place] [facility] [address] [id number] [place] [address]- 5763 13 Sep, 2011 [facility] [place] [facility] [address] [id number] [place] [address]- 3578 10 Sep, 2011 [facility] [place] [facility] [address] [id number] [place] [address]- 6023 09 Sep, 2011 [facility] [place] [facility] [address] [id number] [place] [address]- 9367 27 Aug, 2011 [facility] [place] [facility] [address] [id number] [place] [address]- 1917 12 Aug, 2011 [facility] [place] [facility] [address] [id number] [place] [address]- 3406 08 Aug, 2011 [facility] [address] [id number] [place] [address]- 6869 Aug, [facility] [place] [facility] [address] [id number] [place] [address]- 5846 28 Jul, 2011 [facility] [place] [facility] [address] [id number] [place] [address]- 5996 22 Jul, 2011 [facility] [place] [facility] [address] [id number] [place] [address]- 4723 16 Jul, 2011 [facility] [place] [facility] [address] [id number] [place] [address]- 9476 15 Jul, 2011 [facility] [place] [facility] [address] [id number] [place] [address]- 1936 14 Jul, 2011 [facility] [place] [facility] [address] [id number] [place] [address]- 1298 10 Jul, 2011 [facility] [place] [facility] [address] [id number] [place] [address]- 2627 Jun, [facility] [place] [facility] [address] [id number] [place] [address]- 7861 Jun, [facility] [place] [facility] [address] [id number] [place] [address]- 9915 Jun, [facility] [place] [facility] [address] [id number] [place] [address]- 6675 Jun, [facility] [place] [facility] [address] [id number] [place] [address]- 7298 Jun, [facility] [place] [facility] [address] [id number] [place] [address]- 4966 May, [facility] [place] [facility] [address] [id number] [place] [address]- 8489 May, [facility] [place] [facility] [address] [id number] [place] [address]- 9291 14 May, 2011 [facility] [place] [facility] [address] [id number] [place] [address]- 0548 14 May, 2011 [facility] [place] [facility] [address] [id number] [place] [address]- 9764 12 May, 2011 [facility] [place] [facility] [address] [id number] [place] 9262 07 May, 2011 [facility] [place] [facility] [address] [id number] [place] [address]- 6705 05 May, 2011 [facility] [place] [facility] [address] [id number] [place] [address]- 6650 15 Apr, 2011 [facility] [place] [facility] [address] [id number] [place] [address] 15 Apr, 2011 [facility] [place] [facility] [address] [id number] [place] [address] Apr, [facility] [place] [facility] [address] [id number] [place] [address] Apr, [facility] [place] [facility] [address] [id number] [place] [address] Apr, [facility] [place] [facility] [address] [id number] [place] [address] Apr, [facility] [place] [facility] [address] [id number] [address] Mar, [facility] [place] [facility] [address] [id number] [address] Mar, [facility] [place] [facility] [address] [id number] [place] [address] Mar, [facility] [place] [facility] [address] [id number] [address] Mar, [facility] [place] [facility] [address] [id number] [place] [address] Jan, [facility] [place] [facility] [address] [id number] [place] [address] 19 Dec, 2010 [facility] [address] [id number] [place] [address] 13 Dec, 2010 [facility] [place] [facility] [address] [id number] [place] [address] October, [facility] [address] [id number] [place] [address] Sep, [facility] [place] [facility] [address] [id number] [place] [address] 14 Sep, 2010 [facility] [address] [id number] [place] [address] 17 Jul, 2010 [facility] [address] [id number] [place] [address] 16 Jul, 2010 [facility] [address] [id number] [place] [address] May, [facility] [address] [id number] [place] [address] May, [facility] [address] [id number] [place] [address] May, [facility] [address] [id number] [place] [address] May, [facility] [address] [id number] [place] [address] 2548 Apr, [facility] [address] [id number] [place] [address] Apr, [facility] [place] [facility] [address] [id number] [place] [address] Apr, [facility] [place] [facility] [address] [id number] [place] [address] Apr, [facility] [address] [id number] [place] [address] Apr, [facility] [place] [facility] [address] [id number] [place] [address] Mar, [facility] [place] [facility] [address] [id number] [place] [address] 14 Mar, 2010 [facility] [place] [facility] [address] [id number] [place] [address] 13 Mar, 2010 [facility] [place] [facility] [address] [id number] [place] [address] Mar, [facility] [place] [facility] [address] [id number] [place] [address] Jan, [facility] [place] [facility] [address] [id number] [place] [address] 15 Dec, 2009 [facility] [place] [facility] [address] [facility] [id number] [place] [address] Sep, [facility] [place] [facility] [address] [id number] [place] [address] May, [facility] [place] [facility] [address] [id number] [place] [address] May, [facility] [place] [facility] [address] [facility] [id number] [place] [address] May, [facility] [place] [facility] [address] [facility] [id number] [place] [address] Apr, [facility] [place] [facility] [address] [id number] [place] [address] Apr, [facility] [place] [facility] [address] [id number] [place] [address] Apr, [facility] [place] [facility] [address] [id number] [place] [address] Apr, [facility] [place] [facility] [address] [facility] [id number] [place] [address] Apr, [facility] [place] [facility] [address] [id number] [place] [address] Mar, [facility] [address] [facility] [id number] [place] [address] Mar, [facility] [address] [facility] [id number] [place] [address] Jul, IMMUNIZATIONS No Known Immunizations SOCIAL HISTORY [...] Health Care Facility 12/20/15 Hospitalization History [facility]- Abd pain 03/07/2017 Hospitalization History [facility]- Abd pain 03/14/2017 Hospitalization History [facility]- No bowel movement, rash 04/13/2017 Hospitalization History [facility]- Abd pain r/t kidney surgery on 04/17/2017 Hospitalization History [facility]- Abd pain r/t kidney surgery on 04/18/2017 Hospitalization History [facility]- Lower abd pain 04/30/2017 Hospitalization History [facility]- Cannot urinate 05/30/2017 Hospitalization History [facility]- Pancreatitis Sx 06/29/2017 Hospitalization History [facility]- Stomach pain 07/22/2017 Hospitalization History [facility]- Left side pain 08/12/2017 Hospitalization History [facility]- Incision site infection 08/30/2017 Hospitalization History [facility]- Post Op Seroma/Hematoma Left Abdomen. Discharged 09/04/17- Dr Daniel 09/02/2017 Hospitalization History [facility]- Right shoulder and back pain 2017 Hospitalization History [facility]- Shoulder/Back pain 11/11/2017 Hospitalization History [facility]- Right shoulder blade pain 12/04/2017 Hospitalization History [facility]- C-Diff 12/13/2017 Hospitalization History C diff et MRSA 12/27/2017
--- OUTSIDE RECORDS SUMMARY | 2018-03-01 01:30 | XMS REPORT ---
Author Author EMIL ROLON [facility] Address [address] [place] [address] Care Team Providers Care Sand Bobber Name Role Phone GONZALESEMIL Unavailable PROBLEMS Type Condition ICD9-CM Code TED04-FH Code Onset Dates Condition Status SNOMED Code Problem Polydipsia R63.1 Active 76638588 Problem Trichotillomania F63.3 Active 06592782 Problem Atelectasis J98.11 Active 94993567 Problem Intestinal malabsorption, unspecified K90.9 Active 83294324 Problem Chronic fatigue R53.82 Active 86902111 Problem Generalized social phobia F40.11 Active 11879130 Problem Restless leg syndrome G25.81 Active 98814427 Problem Moderate episode of recurrent major depressive disorder F33.1 Active 651171783 Problem Chronic post-traumatic stress disorder (PTSD) F43.12 Active 370047095 Problem History of renal cell carcinoma Z85.528 Active 455587490 Problem Chronic tension-type headache, intractable G44.221 Active 288776913 Problem Nodule of left lung R91.1 Active 851989746 Problem Hirsuties L68.0 Active 994848481 Problem FH: polycystic ovary Z84.2 Active 029994737 Problem Morbid (severe) obesity due to excess calories E66.01 Active 933764051 Problem Chronic pancreatitis K86.1 Active 301619758 Problem Hyperlipidemia, mixed E78.2 Active 755913516 Problem Asthma J45.909 Active 741037361 ALLERGIES No Information ENCOUNTERS Encounter Location Date Diagnosis [facility] [address] [facility] [id number] [address] Mar, [facility] [address] [id number] [address] Feb, [facility] [address] [facility] [id number] [address] Jan, Acute pain of right knee M25.561 ; Right upper quadrant abdominal pain R10.11 and BMI 45.0-49.9, adult Z68.42 [facility] [id number] [place] [address] 23558- 8102 Jan, [facility] [id number] [place] [address] 06718- 2180 Jan, [facility] [id number] [place] [address] 05498- 8517 Dec, [facility] [id number] [place] [address] 29297- 4049 Dec, Intestinal malabsorption, unspecified K90.9 and Diarrhea, unspecified R19.7 [facility] [id number] [place] [address] 20541- 3166 Dec, [facility] [id number] [place] [address] 51374- 7387 Dec, Strep throat J02.0 ; Intestinal malabsorption, unspecified K90.9 ; Diarrhea, unspecified R19.7 ; Postoperative seroma involving digestive system after non-digestive system procedure K91.873 ; Hyperlipidemia, mixed E78.2 and BMI 45.0-49.9, adult Z68.42 [facility] [id number] [place] [address] 57429- 3409 Dec, [facility] [id number] [place] [address] 90012- 2216 Dec, Nausea R11.0 [facility] [id number] [place] [address] 45262- 8477 Dec, [facility] [id number] [place] [address] 53275 -1437 Dec, Sore throat J02.9 ; Strep throat J02.0 and BMI 45.0-49.9, adult Z68.42 [facility] [id number] [place] [address] 56585- 6764 Dec, [facility] [id number] [place] [address] 4713 Dec, [facility] [id number] [place] [address]- 3569 Dec, [facility] [id number] [place] [address]- 4505 Dec, [facility] [id number] [place] [address] 45411- 2053 Dec, [facility] [id number] [place] [address]- 4883 Dec, [facility] [id number] [place] [address] 84242- 8720 Dec, [facility] [id number] [place] [address]- 2418 Dec, [facility] [address], [place] [address] 3099 Dec, Clostridium difficile colitis A04.72 ; Intractable vomiting with nausea, unspecified vomiting type R11.2 and BMI 45.0-49.9, adult Z68.42 [facility] [address] [address] 5968 Dec, [facility] [id number] [address]- 4741 Nov, [facility] [id number] [address]- 1435 Nov, [facility] [id number], [place] [address]- 9801 Nov, [facility] [id number], [place] [address] Nov, [facility] [address], [place] [address] Nov, [facility] [id number] [place] [address] 35313- 7461 18 Nov, 2017 Hyperlipidemia, mixed E78.2 [facility] [id number] [place] [address] 49662 -3474 Nov, Acute suppurative otitis media of right ear without spontaneous rupture of tympanic membrane, recurrence not specified H66.001 and BMI 45.0-49.9, adult Z68.42 [place] [address] 28503- 6286 Nov, Hyperlipidemia, mixed E78.[address] 49474- 6636 Nov, [place] [address] 65589- 7560 Nov, [address] 05581- 7921 Nov, Nodule of left lung R91.1 [place] [id number] [place] [address] 73335- 6623 Nov, Medicare annual wellness visit, initial Z00.00 [...] adult Z68.42 and Encounter for immunization Z23 [address] [address]48- 8578 October, [address] 03236- 2426 October, Nodule of left lung R91.[address] 03428- 1833 October, Nodule of left lung R91.1 [place] [address] 61773- 1814 October, Recurrent major depressive disorder, in partial remission F33.41 ; Restless leg syndrome G25.81 ; Generalized social phobia F40.11 ; Chronic post-traumatic stress disorder (PTSD) F43.12 ; BMI 45.0-49.9, adult Z68.42 and Trichotillomania F63.3 [place] [address] 41788- 7478 October, [place] [address] 61825- 5093 Sep, Chronic fatigue R53.82 and BMI 45.0-49.9, adult Z68.42 [place] [address] 67531- 3190 Aug, [place] [address] 75831- 2415 Jul, Restless leg syndrome G25.81 and B12 deficiency E53.8 [place] [address] 27925- 4386 Jul, [place] [address] 05653- 5490 Jul, [place] [address] 50577- 4501 Jun, [place] [address] 09561- 4434 Jun, Fatigue, unspecified type R53.83 ; History of renal cell carcinoma Z85.528 ; Chronic pancreatitis K86.1 ; Restless leg syndrome G25.81 ; Dark urine R82.99 and BMI 45.0-49.9, adult Z68.42 [place] [address] 59294- 0834 Jun, [facility] [address] [id number] [address]- 5387 Jun, [facility] [address], [place] [address]- 0662 Jun, [facility] [id number], [place] [address]- 2537 Jun, [facility] [address], [place] [address]- 8351 May, Chronic post-traumatic stress disorder (PTSD) F43.12 ; Moderate episode of recurrent major depressive disorder F33.1 ; Trichotillomania F63.3 and Generalized social phobia F40.11 [place] [address] [address]- 1341 May, [place] [address], [place] [address]- 3715 May, Chronic post-traumatic stress disorder (PTSD) F43.12 ; Moderate episode of recurrent major depressive disorder F33.1 ; Trichotillomania F63.3 and Generalized social phobia F40.11 [facility] [id number] [address]- 4272 May, Hyperlipidemia, mixed E78.2 ; Morbid (severe) obesity due to excess calories E66.01 ; Chronic post-traumatic stress disorder (PTSD) F43.12 ; Moderate episode of recurrent major depressive disorder F33.1 ; Trichotillomania F63.3 and Generalized social phobia F40.11 [facility] [id number] [address]- 5112 Apr, [facility] [id number], [place] [address]- 3232 Apr, Hyperlipidemia, mixed E78.2 ; Morbid (severe) obesity due to excess calories E66.01 ; Chronic post-traumatic stress disorder (PTSD) F43.12 ; Moderate episode of recurrent major depressive disorder F33.1 ; Trichotillomania F63.3 and Generalized social phobia F40.11 [facility] [id number] [place] [address] 37669- 0572 Apr, Trichotillomania F63.3 ; Generalized social phobia F40.11 ; Chronic post-traumatic stress disorder (PTSD) F43.12 and Moderate episode of recurrent major depressive disorder F33.1 [facility] [id number] [place] [address] 32048- 1253 Apr, [facility] [id number] [place] [address] 50156- 0618 Apr, [place] [id number] [place] [address] 76127- 1812 Mar, Moderate episode of recurrent major depressive disorder F33.1 ; Trichotillomania F63.3 ; Chronic post-traumatic stress disorder (PTSD) F43.12 ; Generalized social phobia F40.11 and Restless leg syndrome G25.81 [place] [id number] [place] [address] 24410- 5531 Mar, [facility] [id number] [place] [address] 93948- 0992 Mar, [facility] [id number] [place] [address] 33489- 7664 Feb, Left kidney mass N28.89 [facility] [id number] [place] [address] 04704- 6921 Jan, [facility] [id number] [place] [address] 58028- 6192 Dec, Polydipsia R63.1 ; Chronic pancreatitis K86.1 and Fatigue, unspecified type R53.83 [facility] [id number] [place] [address] 84016- 4054 Nov, [facility] [id number] [place] [address] 26933- 3328 Nov, [facility] [id number], [place] [address]- 4278 Nov, Headache around the eyes R51 [facility] [id number] [place] [address] 55668- 0091 Nov, [facility] [id number] [place] [address] 02103- 5271 October, STD exposure Z20.2 [facility] [id number] [place] [address] 97810- 3952 October, STD exposure Z20.2 [facility] [id number] [place] [address] 327769- 6427 October, Chronic post-traumatic stress disorder (PTSD) F43.12 ; Generalized social phobia F40.11 ; Trichotillomania F63.3 and Restless leg syndrome G25.81 [place] [id number] [place] [address] 55172- 9978 October, [facility] [id number] [place] [address] 24515- 4166 Sep, [facility] [id number] [place] [address] 683587- 0125 Aug, [facility] [id number] [place] [address] 78323- 2603 Aug, [place] [id number] [place] [address] 90908- 4095 Aug, Neck mass R22.1 [place] [id number] [place] [address] 17299- 9877 Aug, Atelectasis J98.11 [facility] [id number] [place] [address] 06624- 0927 28 Jul, 2016 Hyperlipidemia, mixed E78.2 ; Atypical pneumonia J18.9 and Neck mass R22.1 [place] [id number] [place] [address] 81765- 3048 15 Jul, 2016 Hemoptysis R04.[address], [place] [address]- 1687 08 Jul, 2016 Acute non-recurrent pansinusitis J01.40 ; Hemoptysis R04.2 ; Polydipsia R63.1 and Malaise R53.[address] [facility] [address] [place] [address] 83943 -2294 May, Other viral agents as the cause of diseases classified elsewhere B97.89 and Acute upper respiratory infection, unspecified J06.9 [facility] [place] [id number] [place] [address] 54871 -0192 Mar, Nausea R11.0 [facility] [id number] [place] [address] 11877 -6640 Dec, Hives L50.9 [place] [id number] [place] [address] 24698- 6210 Dec, [facility] [place] [id number] [place] [address] 30960 -3117 Dec, Cutaneous abscess of limb, unspecified L02.419 ; Cellulitis of unspecified part of limb L03.119 ; Encounter for incision and drainage procedure Z01.89 and Encounter for recheck of abscess following incision and drainage Z09 [facility] [address], [place] [address] -0878 Dec, Abscess of leg, right L02.415 [address] [place] [address] 43802- 7715 Dec, Cellulitis of unspecified part of limb L03.119 and Cutaneous abscess of limb, unspecified L02.419 [place] [id number] [place] [address] 49949- 2546 Dec, [place] [address], [place] [address]- 3730 Dec, [facility] [place] [id number] [place] [address] 34773 -8288 Aug, [facility] [id number] [place] [address] 80363- 0762 Aug, [facility] [id number] [place] [address] 92088 -2633 04 Jul, 2015 Pain in unspecified wrist M25.539 and Back pain, thoracic M54.6 [facility] [id number] [place] [address] 72474 -1461 Jun, Strain of right wrist, initial encounter S66.911A [place] [address] 36682- 8723 Jun, Chronic pancreatitis, unspecified pancreatitis type K86.1 ; Hirsuties L68.0 ; Morbid (severe) obesity due to excess calories E66.01 ; Chronic pancreatitis K86.1 and Asthma J45.909 [place] [id number] [place] [address] 96725- 9608 May, [place] [id number] [place] [address] 84825- 1181 May, Hyperlipidemia, mixed E78.2 and Muscle spasm of back M62.830 [place] [id number] [place] [address] 68466- 5578 30 Apr, 2015 [place] [id number] [place] [address] 39766- 0725 Apr, Torticollis M43.6 [place] [id number] [place] [address] 59510- 9138 Apr, Right-sided thoracic back pain M54.6 [place] [id number] [place] [address] 79233- 1573 Mar, Rash R21 [place] [id number] [place] [address] 65224- 9084 Mar, [place] [address], [place] [address]- 8750 Jan, [facility] [id number] [place] [address] 44714- 1506 Dec, [facility] [id number] [place] [address] 05147- 1182 Dec, Urinary frequency 788.41 and Nocturia more than twice per night 788.43 [facility] [id number] [place] [address] 28912- 8239 Nov, [facility] [id number] [place] [address] 87277- 4611 Nov, [facility] [id number] [place] [address] 67632- 7443 Nov, Abdominal pain 789.00 [facility] [id number] [place] [address] 87507- 2268 October, TDAP DX V06.1 [facility] [id number] [place] [address] 93254- 6449 October, [facility] [id number] [place] [address] 18763- 8188 October, Disturbance of skin sensation 782.0 ; Wrist pain, right 719.43 ; Hyperlipidemia 272.4 and Skin lesion of face 709.9 [facility] [address] [place] [address] 64858- 0852 Sep, [facility] [id number] [place] [address] 94770- 0827 Sep, [facility] [id number] [place] [address] 157981- 1909 Aug, [facility] [id number] [place] [address] 43114- 1933 Aug, [facility] [id number] [place] [address] 01977- 1950 Aug, [facility] [place] [facility] [address] [id number] [place] [address]- 8105 23 Aug, 2014 [facility] [place] [facility] [address] [id number] [place] [address]- 7590 16 Aug, 2014 [facility] [place] [facility] [address] [id number] [place] [address]- 3940 16 Aug, 2014 [facility] [place] [facility] [address] [id number] [place] [address]- 9012 14 Aug, 2014 [facility] [place] [facility] [address] [id number] [place] [address]- 7471 14 Aug, 2014 [facility] [place] [facility] [address] [id number] [place] [address]- 9847 Aug, [facility] [place] [facility] [address] [id number] [place] [address]- 8328 Aug, [facility] [place] [facility] [address] [id number] [place] [address]- 2529 Aug, [facility] [place] [facility] [address] [id number] [place] [address]- 1667 Aug, [facility] [place] [facility] [address] [id number] [place] [address]- 9448 Aug, [facility] [place] [facility] [address] [id number] [place] [address]- 0025 Aug, [facility] [place] [facility] [address] [id number] [address]- 0158 Jul, 2014 [facility] [place] [facility] [address] [id number] [place] [address]- 5580 Jul, 2014 [facility] [place] [facility] [address] [id number] [place] [address]- 9282 Jul, [facility] [place] [facility] [address] [id number] [place] [address]- 1276 Jul, [facility] [place] [facility] [address] [id number] [place] [address]- 9912 04 Jul, 2014 [facility] [address] [id number] [place] [address]- 4959 Jul, [facility] [place] [facility] [address] [id number] [place] [address]- 3882 Jun, [facility] [place] [facility] [address] [id number] [place] [address]- 3848 Jun, [facility] [place] [facility] [address] [id number] [place] [address]- 0634 Jun, [facility] [place] [facility] [address] [id number] [place] [address]- 6290 Jun, [facility] [place] [facility] [address] [id number] [place] [address]- 0058 Jun, [facility] [address] [id number] [place] [address]- 6917 Jun, [facility] [address] [id number] [place] [address]- 0206 Jun, [facility] [place] [facility] [address] [id number] [place] [address]- 4471 Jun, [facility] [address] [id number] [place] [address]- 6666 May, [facility] [place] [facility] [address] [id number] [place] [address]- 8952 May, [facility] [place] [facility] [address] [id number] [place] [address]- 0091 18 May, 2014 [facility] [place] [facility] [address] [id number] [place] [address]- 0940 18 May, 2014 [facility] [place] [facility] [address] [id number] [place] [address]- 5838 15 May, 2014 [facility] [place] [facility] [address] [id number] [place] [address]- 8652 May, [facility] [place] [facility] [address] [id number] [place] [address]- 0807 May, [facility] [place] [facility] [address] [id number] [place] [address]- 8474 May, [facility] [place] [facility] [address] [id number] [place] 0508 May, [facility] [place] [facility] [address] [id number] [place] [address]- 0142 May, [facility] [place] [facility] [address] [id number] [place] [address]- 3069 May, [facility] [place] [facility] [address] [id number] [place] [address]- 1988 May, [facility] [place] [facility] [address] [id number] [place] [address] Apr, [facility] [place] [facility] [address] [id number] [place] [address] Apr, [facility] [place] [facility] [address] [id number] [place] [address] Apr, [facility] [place] [facility] [address] [id number] [place] [address] Apr, [facility] [place] [facility] [address] [id number] [place] [address] Apr, [facility] [place] [facility] [address] [id number] [place] [address] Apr, [facility] [place] [facility] [address] [id number] [place] [address] Apr, [facility] [place] [facility] [address] [id number] [place] [address] Apr, [facility] [place] [facility] [address] [id number] [place] [address] 13 Apr, 2014 [facility] [place] [facility] [address] [id number], [place] [address] Apr, [facility] [place] [facility] [address] [id number] [place] [address] Apr, [facility] [place] [facility] [address] [id number] [place] [address] Apr, [facility] [place] [facility] [address] [id number] [place] [address] Mar, [facility] [place] [facility] [address] [id number] [place] [address] Mar, [facility] [place] [facility] [address] [id number] [place] [address] Mar, [facility] [place] [facility] [address] [id number] [place] [address] Mar, [facility] [place] [facility] [address] [id number] [place] [address] Feb, [facility] [place] [facility] [address] [id number] [place] [address] Feb, [facility] [place] [facility] [address] [id number] [place] [address] Feb, [facility] [place] [facility] [address] [id number] [place] [address] Feb, [facility] [place] [facility] [address] [id number] [place] [address] Feb, [facility] [place] [facility] [address] [id number] [place] [address] Feb, [facility] [place] [facility] [address] [id number] [place] [address] Jan, [facility] [place] [facility] [address] [id number] [place] [address] Jan, [facility] [place] [facility] [address] [id number] [place] [address] Jan, [facility] [place] [facility] [address] [id number] [place] [address] Jan, [facility] [place] [facility] [address] [id number] [place] [address] Jan, [facility] [place] [facility] [address] [id number] [place] [address] Jan, [facility] [place] [facility] [address] [id number] [place] [address] Jan, [facility] [place] [facility] [address] [id number] [place] [address] Jan, [facility] [place] [facility] [address] [id number] [place] [address] Jan, [facility] [place] [facility] [address] [id number] [place] [address] Jan, [facility] [place] [facility] [address] [id number] [place] [address] Jan, [facility] [place] [facility] [address] [id number] [place] [address] Jan, [facility] [place] [facility] [address] [id number] [place] [address] Jan, [facility] [place] [facility] [address] [id number] [place] [address] Jan, [facility] [place] [facility] [address] [id number] [place] [address] 5262 Dec, [facility] [place] [facility] [address] [id number] [place] [address] 4472 Dec, [facility] [place] [facility] [address] [id number] [place] [address] 7685 Dec, [facility] [place] [facility] [address] [id number] [place] [address] 2124 Dec, [facility] [place] [facility] [address] [id number] [place] [address] 4002 Nov, [facility] [place] [facility] [address] [id number] [place] [address] 9072 Nov, [facility] [place] [facility] [address] [id number] [place] [address]- 4572 Nov, [facility] [place] [facility] [address] [id number] [place] [address]- 0471 Nov, [facility] [place] [facility] [address] [id number] [place] [address] 3840 Nov, [facility] [place] [facility] [address] [id number] [place] [address]- 2521 October, [facility] [place] [facility] [address] [id number] [place] [address]- 7696 October, [facility] [place] [facility] [address] [id number] [place] [address]- 0874 October, [facility] [place] [facility] [address] [id number] [place] [address]- 4543 October, [facility] [place] [facility] [address] [id number] [place] [address]- 6935 October, [facility] [place] [facility] [address] [id number] [place] [address]- 9707 October, [facility] [place] [facility] [address] [id number] [place] [address]- 4196 October, [facility] [place] [facility] [address] [id number] [place] [address]- 6599 October, [facility] [place] [facility] [address] [id number] [place] [address]- 2128 October, [facility] [place] [facility] [address] [id number] [place] [address]- 0466 October, [facility] [place] [facility] [address] [id number] [place] [address]- 0159 October, [facility] [place] [facility] [address] [id number] [place] [address]- 3025 October, [facility] [address] [id number] [place] [address]- 9855 October, [facility] [place] [facility] [address] [id number] [place] [address]- 0299 October, [facility] [place] [facility] [address] [id number] [place] [address]- 5906 Sep, [facility] [place] [facility] [address] [id number] [place] [address]- 9162 Sep, [facility] [place] [facility] [address] [id number] [place] [address]- 7379 Sep, [facility] [place] [facility] [address] [id number] [place] [address]- 1642 Sep, [facility] [address] [id number] [place] [address]- 3720 Sep, [facility] [place] [facility] [address] [id number] [place] [address]- 7491 Sep, [facility] [place] [facility] [address] [id number] [place] [address]- 4823 Sep, [facility] [place] [facility] [address] [id number] [place] [address]- 3975 Sep, [facility] [place] [facility] [address] [id number] [place] [address]- 0625 Sep, [facility] [place] [facility] [address] [id number] [place] [address]- 0235 Sep, [facility] [place] [facility] [address] [id number] [place] [address]- 2541 Sep, [facility] [place] [facility] [address] [id number] [place] [address]- 9366 Sep, [facility] [place] [facility] [address] [id number] [place] [address]- 7288 Sep, [facility] [place] [facility] [address] [id number] [place] [address]- 5540 Sep, [facility] [place] [facility] [address] [id number] [place] [address]- 5797 Sep, [facility] [place] [facility] [address] [id number] [place] [address]- 4095 Aug, [facility] [place] [facility] [address] [id number] [place] [address]- 4448 Aug, [facility] [place] [facility] [address] [id number] [place] [address]- 8549 Aug, [facility] [place] [facility] [address] [id number] [place] [address]- 7000 Aug, [facility] [place] [facility] [address] [id number] [place] [address]- 6336 Jul, [facility] [place] [facility] [address] [id number] [place] [address]- 5090 Jul, [facility] [place] [facility] [address] [id number] [place] [address]- 1912 Jul, [facility] [place] [facility] [address] [id number] [place] [address]- 2066 Jul, [facility] [place] [facility] [address] [id number] [place] [address]- 5272 Jun, [facility] [place] [facility] [address] [id number] [place] [address]- 8717 Jun, [facility] [place] [facility] [address] [id number] [place] [address]- 7157 Jun, [facility] [place] [facility] [address] [id number] [place] [address]- 5992 Jun, [facility] [place] [facility] [address] [id number] [place] [address]- 0304 Jun, [facility] [place] [facility] [address] [id number] [place] [address]- 8935 Jun, [facility] [place] [facility] [address] [id number] [place] [address]- 8299 Jun, [facility] [place] [facility] [address] [id number] [place] [address]- 1306 08 Jun, 2013 [facility] [place] [facility] [address] [id number] [place] [address] 20 May, 2013 [facility] [place] [facility] [address] [id number] [place] [address] 20 May, 2013 [facility] [place] [facility] [address] [id number] [place] [address]- 4731 18 May, 2013 [facility] [place] [facility] [address] [id number] [place] [address]- 5107 18 May, 2013 [facility] [place] [facility] [address] [id number] [place] [address]- 7350 17 May, 2013 [facility] [place] [facility] [address] [id number] [place] [id number] 17 May, 2013 [facility] [place] [facility] [address] [id number] [place] [address]- 0357 17 May, 2013 [facility] [place] [facility] [address] [id number] [place] [address]- 4667 17 May, 2013 [facility] [place] [facility] [address] [id number] [place] [address]- 6811 16 May, 2013 [facility] [place] [facility] [address] [id number] [place] [address]- 8420 16 May, 2013 [facility] [place] [facility] [address] [id number] [place] 9314 14 May, 2013 [facility] [place] [facility] [address] [id number] [place] [address]- 5994 14 May, 2013 [facility] [place] [facility] [address] [id number] [place] [address]- 6688 13 May, 2013 [facility] [place] [facility] [address] [id number] [place] [address]- 8332 13 May, 2013 [facility] [place] [facility] [address] [id number] [place] [address]- 6976 May, [facility] [address] [id number] [place] [address] May, [facility] [address] [id number] [place] [address]- 8689 May, [facility] [address] [id number] [place] [address]- 0713 May, [facility] [address] [id number] [place] [address]- 1719 Apr, [facility] [address] [id number] [place] [address]- 0640 Apr, [facility] [address] [id number] [place] [address]- 3862 Apr, [facility] [address] [id number] [place] [address]- 3611 Apr, [facility] [address] [id number] [place] [address]- 7766 Aug, [facility] [address] [id number] [place] [address]- 0662 Aug, [facility] [address] [id number] [place] [address]- 2984 Aug, [facility] [address] [id number] [place] [address]- 9579 05 Aug, 2012 [facility] [address] [id number] [place] [address]- 3303 04 Jul, 2012 [facility] [address] [id number] [place] [address]- 4106 Jun, [facility] [address] [id number] [place] [address]29 Jun, [facility] [address] [id number] [place] [address]- 1726 Jun, [facility] [place] [facility] [address] [id number] [place] [address]- 0427 Jun, [facility] [place] [facility] [address] [id number] [place] [address]- 7584 May, [facility] [place] [facility] [address] [id number] [place] [address]- 0404 May, [facility] [place] [facility] [address] [id number] [place] [address]- 8429 May, [facility] [place] [facility] [address] [id number] [place] [address]- 2094 May, [facility] [place] [facility] [address] [id number] [place] [address]- 4855 May, [facility] [place] [facility] [address] [id number] [place] [address]- 6731 May, [facility] [place] [facility] [address] [id number] [place] [address]- 0293 May, [facility] [place] [facility] [address] [id number], [place] [address]- 0173 Apr, [facility] [place] [facility] [address] [id number], [place] [address]- 3547 Apr, [facility] [place] [facility] [address] [id number], [place] [address]- 1200 Apr, [facility] [place] [facility] [address] [id number] [place] [address]- 6714 Apr, [facility] [place] [facility] [address] [id number], [place] [address]- 2181 Apr, [facility] [place] [facility] [address] [id number], [place] [address]- 7541 Apr, [facility] [place] [facility] [address] [id number], [place] [address]- 3586 Apr, [facility] [place] [facility] [address] [id number] [place] [address]- 4493 Mar, [facility] [place] [facility] [address] [id number], [place] [address]- 0843 Mar, [facility] [place] [facility] [address] [facility] [id number] [place] [address]- 5029 Mar, [facility] [place] [facility] [address] [id number], [place] [address]- 3421 Mar, [facility] [place] [facility] [address] [id number] [place] [address], [place] [address]- 4113 Mar, [facility] [place] [facility] [address] [id number] [place] [address]- 7467 Mar, [facility] [place] [facility] [address] [facility] [id number], [place] [address]- 1501 Mar, [facility] [place] [facility] [address] [id number], [place] [address]- 0174 Mar, [facility] [place] [facility] [address] [facility] [id number], [place] [address]- 3398 Mar, [facility] [place] [facility] [address] [facility] [id number], [place] [address]- 2673 Mar, [facility] [place] [facility] [address] [facility] [id number], [place] [address]- 4535 Mar, [facility] [place] [facility] [address] [facility] [id number], [place] [address]- 8128 Mar, [facility] [place] [facility] [address] [facility] [id number], [place] [address]- 7943 Feb, [facility] [place] [facility] [address] [facility] [id number], [place] [address]- 0800 Jan, [facility] [place] [facility] [address] [facility] [id number], [place] [address]- 7515 Jan, [facility] [place] [facility] [address] [id number] [place] [address]- 4762 Jan, [facility] [place] [facility] [address] [id number] [place] [address]- 1403 Jan, [facility] [place] [facility] [address] [id number] [place] [address]- 2546 Jan, [facility] [place] [facility] [address] [id number] [place] [address]- 8224 Dec, [facility] [place] [facility] [address] [id number] [place] [address]- 3469 Dec, [facility] [place] [facility] [address] [id number] [place] [address]- 4483 Nov, [facility] [place] [facility] [address] [id number] [place] [address]- 0516 Nov, [facility] [place] [facility] [address] [id number] [place] [address]- 5291 Nov, [facility] [place] [facility] [address] [id number] [place] [address]- 3265 October, [facility] [place] [facility] [address] [id number] [place] [address]- 1712 October, [facility] [place] [facility] [address] [id number] [place] [address]- 0142 October, [facility] [place] [facility] [address] [id number] [place] [address]- 7053 October, [facility] [place] [facility] [address] [id number] [place] [address]- 8126 October, [facility] [place] [facility] [address] [id number] [place] [address]- 6552 October, [facility] [place] [facility] [address] [id number] [place] [address]- 3786 October, [facility] [place] [facility] [address] [id number] [place] [address]- 9298 Sep, [facility] [address] [id number] [place] [address]- 8875 26 Sep, 2011 [facility] [place] [facility] [address] [id number] [place] [address]- 3634 26 Sep, 2011 [facility] [place] [facility] [address] [id number] [place] [address]- 8902 25 Sep, 2011 [facility] [place] [facility] [address] [id number] [place] [address]- 5668 24 Sep, 2011 [facility] [address] [id number] [place] [address]- 6177 19 Sep, 2011 [facility] [place] [facility] [address] [id number] [place] [address]- 3056 17 Sep, 2011 [facility] [place] [facility] [address] [id number] [place] [address]- 7785 16 Sep, 2011 [facility] [place] [facility] [address] [id number] [place] [address]- 7463 16 Sep, 2011 [facility] [place] [facility] [address] [id number] [place] [address]- 8936 14 Sep, 2011 [facility] [place] [facility] [address] [id number] [place] [address]- 7414 13 Sep, 2011 [facility] [place] [facility] [address] [id number] [place] [address]- 3374 10 Sep, 2011 [facility] [place] [facility] [address] [id number] [place] [address]- 2672 09 Sep, 2011 [facility] [place] [facility] [address] [id number] [place] [address]- 3594 27 Aug, 2011 [facility] [place] [facility] [address] [id number] [place] [address]- 3041 12 Aug, 2011 [facility] [place] [facility] [address] [id number] [place] [address]- 3845 08 Aug, 2011 [facility] [place] [facility] [address] [id number] [place] [address]- 1802 06 Aug, 2011 [facility] [address] [id number] [place] [address]- 6506 28 Jul, 2011 [facility] [place] [facility] [address] [id number] [place] [address] 2546 22 Jul, 2011 [facility] [place] [facility] [address] [id number] [place] [address] 2546 16 Jul, 2011 [facility] [place] [facility] [address] [id number] [place] [address] 2546 15 Jul, 2011 [facility] [address] [id number] [place] [address]- 2986 14 Jul, 2011 [facility] [place] [facility] [address] [id number] [place] [address]- 3906 10 Jul, 2011 [facility] [place] [facility] [address] [id number] [place] [address]- 4171 30 Jun, 2011 [facility] [address] [id number] [place] [address]- 0080 Jun, [facility] [place] [facility] [address] [id number] [place] [address]- 2121 Jun, [facility] [address] [id number] [place] [address]- 4656 Jun, [facility] [place] [facility] [address] [id number] [place] [address]- 0926 Jun, [facility] [place] [facility] [address] [id number] [place] [address] 2546 May, [facility] [place] [facility] [address] [id number] [place] [address] 2546 May, [facility] [place] [facility] [address] [id number] [place] [address]- 2546 May, [facility] [place] [facility] [address] [id number] [place] [address]- 0483 May, [facility] [place] [facility] [address] [id number] [place] [address]- 3821 May, [facility] [place] [facility] [address] [id number] [place] [address]- 2406 May, [facility] [place] [facility] [address] [id number] [place] [address]- 6668 May, [facility] [place] [facility] [address] [id number] [place] [address]- 0453 Apr, [facility] [place] [facility] [address] [id number] [place] [address]- 7169 Apr, [facility] [place] [facility] [address] [id number] [place] [address]- 1580 Apr, [facility] [place] [facility] [address] [id number] [place] [address]- 9406 Apr, [facility] [place] [facility] [address] [id number] [place] [address]- 0290 Apr, [facility] [place] [facility] [address] [id number] [place] [address]- 5241 Apr, [facility] [place] [facility] [address] [id number] [place] [address]- 1618 Mar, [facility] [place] [facility] [address] [id number], [place] [address]- 9943 Mar, [facility] [place] [facility] [address] [id number], [place] [address]- 7875 Mar, [facility] [place] [facility] [address] [id number] [place] [address]- 2457 Mar, [facility] [place] [facility] [address] [id number], [place] [address]- 4025 Jan, [facility] [place] [facility] [address] [id number] [place] [address]- 9873 Dec, [facility] [place] [facility] [address] [id number] [place] [address]- 6974 13 Dec, 2010 [facility] [place] [facility] [address] [id number] [place] [address]- 1386 11 Oct, 2010 [facility] [place] [facility] [address] [id number] [place] [address]- 7271 20 Sep, 2010 [facility] [place] [facility] [address] [id number] [place] [address]- 3256 14 Sep, 2010 [facility] [place] [facility] [address] [id number] [place] [address] 2546 17 Jul, 2010 [facility] [place] [facility] [address] [id number] [place] [address]- 4886 16 Jul, 2010 [facility] [place] [facility] [address] [id number] [place] [address]- 0225 31 May, 2010 [facility] [place] [facility] [address] [id number] [place] [address]- 1288 27 May, 2010 [facility] [place] [facility] [address] [id number] [place] [address]- [address] 08 May, 2010 [facility] [place] [facility] [address] [id number] [place] [address] 06 May, 2010 [facility] [place] [facility] [address] [facility] [id number] [place] [address] Apr, [facility] [place] [facility] [address] [id number] [place] [address] Apr, [facility] [place] [facility] [address] [id number] [place] [address] 254 Apr, [facility] [place] [facility] [address] [id number] [place] [address] Apr, [facility] [place] [facility] [address] [id number] [place] [address] Apr, [facility] [place] [facility] [address] [id number] [place] [address] Mar, [facility] [place] [facility] [address] [id number] [place] [address] 14 Mar, 2010 [facility] [address] [id number] [place] [address] 13 Mar, 2010 [facility] [place] [facility] [address] [id number] [place] [address] 12 Mar, 2010 [facility] [id number] [place] [address], [place] [address] 20 Jan, 2010 [facility] [address] [id number] [place] [address] 15 Dec, 2009 [facility] [address] [id number] [place] [address] Sep, [facility] [address] [id number] [place] [address] 08 May, 2009 [facility] [address] [id number] [place] [address] May, [facility] [address] [id number] [place] [address] May, [facility] [address] [id number], [place] [address] 17 Apr, 2009 [facility] [place] [facility] [address] [id number] [place] [address] 17 Apr, 2009 [facility] [place] [facility] [address] [id number], [place] [address] Apr, [facility] [place] [facility] [address] [id number] [place] [address] 10 Apr, 2009 [facility] [place] [facility] [address] [id number] [place] [address] 09 Apr, 2009 [facility] [place] [facility] [address] [id number], [place] [address] 15 Mar, 2009 [facility] [place] [facility] [address] [id number], [place] [address] Mar, [facility] [address] [facility] [id number] [place] [address] Jul, IMMUNIZATIONS No Known Immunizations SOCIAL HISTORY Never Assessed REASON FOR VISIT Deffered Lab Order PLAN OF CARE VITAL SIGNS MEDICATIONS Unknown [...] 08/2017 Surgical History nephrectomy 03/2017 Hospitalization History Cellulitis-[facility] 12/20/15 [facility]- Abd pain 03/07/2017 [facility]- Abd pain 03/14/2017 [facility]- No bowel movement, rash 04/13/2017 [facility]- Abd pain r/t kidney surgery on 04/17/2017 Hospitalization History [facility]- Abd pain r/t kidney surgery on 04/18/2017 [facility]- Lower abd pain 04/30/2017 [facility]- Cannot urinate 05/30/2017 [facility]- Pancreatitis Sx 06/29/2017 [facility]- Stomach pain 07/22/2017 [facility]- Left side pain 08/12/2017 [facility]- Incision site infection 08/30/2017 Hospitalization History [facility]- Post Op Seroma/Hematoma Left Abdomen. Discharged 09/04/17- Dr Daniel 09/02/2017 Hospitalization [facility]- Right shoulder and back pain 2017 Hospitalization History [facility]- Shoulder/Back pain 11/11/2017 [facility]ization [facility]- Right shoulder blade pain 12/04/2017 Hospitalization History [facility]- C-Diff 12/13/2017 Hospitalization History C diff et MRSA 12/27/2017
--- NOTE | 2018-03-01 02:04 | ED GI ---
General Chief Complaint: Catheter/Drain/Tube Problems Stated Complaint: DRAIN TUBE LEAKING Nursing Triage Note: PT REPORTS MICHAEL DRAIN LEAKING. Sepsis Screen: No Definite Risk Source of Information: Patient Exam Limitations: No Limitations History of Present Illness Date Seen by Provider: Mar 01, 2018 Time Seen by Provider: 01:53 Initial Comments Patient presents to ER by private conveyance with chief complaint that she was laying in bed asleep when she woke up and had a pool of drainage under her. She says she wiped all off with a single paper towel. She took some Tylenol for pain and couple hours ago. She says she's having quite a bit of pain. She says she had a fever of 98.9 earlier today. She has a Rodrick-Winston in place and claims that the bulb did not cause the drainage. She was just seen 5 days ago in the ER and seen at that time by Dr. Marroquin the surgeon who is helping care for her. She has a large abscess in the subcutaneous tissue of her left abdomen being drained by drain and followed outpatient by the surgeon. She says she's having quite a bit of pain and would like something for it. She cannot take NSAIDs as she has a history of only one kidney. Allergies and Home Medications Allergies Coded Allergies: fentanyl (Verified Allergy, Unknown, 02/13/18) meperidine (Verified Allergy, Unknown, 08/20/17) penicillin G (Verified Allergy, Unknown, 08/20/17) vancomycin (Unverified Adverse Reaction, Intermediate, severe itching, ) Home Medications Cyanocobalamin 1,000 Mcg/Ml Inj, 1,000 MCG IJ MONTHLY, (Reported) Estradiol 2 Mg Tablet, 2 MG PO HS, (Reported) Fluoxetine HCl 40 Mg Capsule, 40 MG PO HS, (Reported) Hydrocodone/Acetaminophen 1 Each Tablet, 1 TAB PO Q6H Prescribed by: LINDSEY MARROQUIN on 02/13/18 1335 Hydrocortisone 30 Gm Cream.appl, TOP DAILY PRN for INFLAMMATION, (Reported) Lipase/Protease/Amylase 1 Each Tablet, PO UD, (Reported) TAKE 3 TABLETS WITH MEALS AND 2 TABLETS WITH SNACKS (HAS NOT STARTED TAKING DUE TO NOT BEING ABLE TO KEEP ANYTHING DOWN BUT 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) Ondansetron 8 Mg Tab.rapdis, 8 MG PO BID, (Reported) Promethazine HCl 25 Mg Tablet, 25 MG PO Q6H PRN for NAUSEA/VOMITING-2ND LINE, ( Reported) Ropinirole HCl 4 Mg Tablet, 4 MG PO HS, (Reported) Patient Home Medication List Home Medication List Reviewed: Yes Review of Systems Review of Systems Constitutional: No chills, No diaphoresis EENTM: No Blurred Vision, No Double Vision Respiratory: Denies Cough, Denies Shortness of Air Cardiovascular: Denies Chest Pain, Denies Lightheadedness Gastrointestinal: Denies Constipated, Denies Diarrhea Genitourinary: Denies Discharge, Denies Drainage Musculoskeletal: No joint pain, No joint swelling Skin: No pruritus, No rash Past Xzorkbc-Kpfgrc-Vromeo Hx Patient Social History Alcohol Use: Denies Use Recreational Drug Use: No Smoking Status: Current Someday Smoker Type Used: Cigarettes 2nd Hand Smoke Exposure: No Recent Foreign Travel: No Contact w/Someone Who Travel: No Recent Infectious Disease Expo: No Recent Hopitalizations: Yes Immunizations Up To Date Tetanus Booster (TDap): Unknown PED Vaccines UTD: No Date of Pneumonia Vaccine: May 17, 2012 Date of Influenza Vaccine: Jul 03, 2012 Seasonal Allergies Seasonal Allergies: Yes (MILD) Past Medical History Surgeries: Yes (R KNEE SCOPE X5 L X2, NASAL FX, EGD/COLONOSCOPY, COCCYX REMOVAL , HERNIA) Abdominal, Adenoidectomy, Appendectomy, Gallbladder, 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, Nephrectomy, Orthopedic, Tonsillectomy Respiratory: Yes (HASNT USED INHALER IN > 4 YRS) Asthma Currently Using CPAP: No Currently Using BIPAP: No Cardiac: No Neurological: Yes (RESTLESS LEG SYNDROME) Headaches /Migraines 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: No (HX ENDOMETRIOSIS ) 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/MISTRESS History: 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 Sexually Transmitted Disease: No HIV/AIDS: No Genitourinary: Yes (L KIDNEY REMOVED FOR TUMOR;) UTI-Chronic Gastrointestinal: Yes (ENLARGED LIVER/FATTY LIVER) Liver Disease/Jaundice, Pancreatitis, Polyps Musculoskeletal: Yes (COCCYX-REPAIRED, MAY HAVE SIGNS OF ARTHRITIS) Chronic Back Pain Endocrine: Yes (CHRONIC PANCREATITIS) HEENT: No Loss of Vision: Denies Hearing Impairment: Denies Cancer: Yes Kidney Did You Recieve Any Treatments: Yes What Type of Treatment Did You: Surgical Intervention Psychosocial: Yes Anxiety, Depression Integumentary: No Herpes Blood Disorders: No Adverse Reaction/Blood Tranf: No (N/A) Family Medical History Cardiovascular disease 19 FATHER Completed stroke 19 FATHER Diabetes mellitus 19 FATHER Hypercholesterolemia 19 FATHER 19 MOTHER Hypertension 19 FATHER 19 MOTHER Neoplasm 19 MOTHER Psychosocial problem 19 FATHER 19 MOTHER Cancer, Diabetes, Hypertension Physical Exam Vital Signs Vital Signs - First Documented 03/01/18 01:37 Temp 97.0 Pulse 80 Resp 18 B/P (MAP) 136/82 (100) Pulse Ox 99 O2 Delivery Room Air Capillary Refill : Less Than 3 Seconds Height/Weight/BMI Height: 5'2.00" Weight: 260lbs. 2.0oz. 117.249938bn; 45.8 BMI Method:Stated General Appearance: WD/WN, no apparent distress HEENT: PERRL/EOMI, pharynx normal Respiratory: no respiratory distress, no accessory muscle use Cardiovascular: normal peripheral pulses, regular rate, rhythm Neurologic/Psychiatric: alert, normal mood/affect, oriented x 3 Skin: other (Z well approximated, clean dry and intact surgical incision on her left abdomen with bing intact. There is also a smaller 1 cm incision with a drain line attached to a Rodrick-Winston bulb with yellow serosanguineous fluid. There is a scant amount of yellow drainage around the tube that cannot be expressed anymore when pushed on. There is tenderness to palpation but no erythema, induration or area of fluctuance.) Progress/Results/Core Measures Results/Orders Vital Signs/I&O 03/01/18 01:37 Temp 97.0 Pulse 80 Resp 18 B/P (MAP) 136/82 (100) Pulse Ox 99 O2 Delivery Room Air Blood Pressure Mean: 100 Progress Progress Note : Time: 02:04 Progress Note Patient has totally normal vital signs and no change in her appearance and status saw her Saturday. She is looking for some extra pain control and she started having Tylenol. Patient had a mildly elevated white count of 14,005 days ago. We can repeat some labs or she can follow up outpatient as her vitals are fine. There is nothing acutely concerning about her discharge from her wound or its appearance. Departure Impression Primary Impression: Rodrick winston drain site pain Disposition: HOME, SELF-CARE Condition: Stable Departure-Patient Inst. Decision time for Depature: 02:11 Referrals: CARMEN GIBBS MD (PCP/Family) Primary Care Physician Patient Instructions: Rodrick-Winston Drain Add. Discharge Instructions: Keep your follow-up appointment with surgeon. Return to the ER to begin to have fevers above 100.3F. All discharge instructions reviewed with patient and/or family. Voiced understanding. Copy Copies To 1: LINDSEY MARROQUIN TITUS J Mar 01, 2018 02:04
[2018-03-01 02:25] VITALS: BP 136/82
== END 2018-03-01 02:22 | disposition home or self-care (01) ==
LOC: EDUNIT# 01:18 → ER 01:20
DX: G89.18 Other acute postprocedural pain (principal); J45.909 Unspecified asthma, uncomplicated; G25.81 Restless legs syndrome; F41.9 Anxiety disorder, unspecified; F32.9 Major depressive disorder, single episode, unspecified; G43.909 Migraine, unspecified, not intractable, without status migrainosus; F17.210 Nicotine dependence, cigarettes, uncomplicated; Z85.528 Personal history of other malignant neoplasm of kidney; Z86.19 Personal history of other infectious and parasitic diseases; Z87.19 Personal history of other diseases of the digestive system; Z87.440 Personal history of urinary (tract) infections; Z82.49 Family history of ischemic heart disease and other diseases of the circulatory system; Z86.010 Personal history of colon polyps; Z90.710 Acquired absence of both cervix and uterus; Z90.89 Acquired absence of other organs; Z98.890 Other specified postprocedural states; Z90.5 Acquired absence of kidney; Z79.52 Long term (current) use of systemic steroids
CPT/HCPCS: 99283

== ENCOUNTER 2018-03-01 21:23 | Emergency (ER) | payer MEDICARE, MEDICAID ==
[~2018-03-01] VITALS: Ht 157.5 cm; Wt 98.0 kg
--- OUTSIDE RECORDS SUMMARY | 2018-03-01 21:30 | XMS REPORT | Clinical Summary ---
Author Author [facility] Organization [facility] Address Unknown Phone Unavailable Care Team Providers Care Product Development Specialist Name Role Phone Michael Sutton MD [...] in the Health Information Management department at [phone] for further assistance in locating additional records.[facility] Allergies Active Allergy Reactions Severity [...] tongue to disolve. Chronic nausea, Chronic vomiting yippxf-qjoxgzrq-jogeacz Take 3 tablets by mouth 300 tablet [...] Overview: Added automatically from request for surgery [id number] Intractable vomiting with nausea 01/14/2018 Overview: Added automatically from request for surgery [id number] Left renal mass 04/10/2017 Renal mass 03/21/2017 Overview: Added automatically from request for surgery [id number] 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 06/24/2013 Overview: S/P HOLLAND, BSO 11/27 Depression 06/24/2013 S/P cholecystectomy 06/24/2013 Overview: 2007 S/P appendectomy 06/24/2013 Overview: November 2012 Pancreatitis 10/23/2011 Encounters Date Type Specialty Care Team Description 02/20/2018 Refill Gastroenterology Randy Nunez MD Medication monitoring encounter 02/19/2018 Hospital Radiology Jessica Valera ARNP Encounter 02/04/2018 Procedure Pass Radiology 02/04/2018 Telephone Gastroenterology Jessica Valera ARNP Results; Follow-up Phone Call 01/31/2018 [facility] Hal Sparks MD Other chronic Encounter pancreatitis (HCC) 01/31/2018 Anesthesia Catherine Waters, SHUTTLER CAR Event 01/31/2018 Procedure Pass 01/31/2018 Surgery Hal [...] Medication Update 12/17/2017 Telephone Gastroenterology Jessica Valera FLOOR SUPERVISOR Medication Follow-up 12/17/2017 Orders Only Gastroenterology Utech, Jessica, FLOOR SUPERVISOR Diarrhea, unspecified type 12/16/2017 Orders Only Gastroenterology [employer], Jessica, FLOOR SUPERVISOR Diarrhea, unspecified type 12/13/2017 Telephone Gastroenterology Randy Nunez MD Other 12/13/2017 Telephone Gastroenterology Utech Jessica FLOOR SUPERVISOR C Diff ( Positive C Diff) 12/13/2017 Telephone Gastroenterology Fannyech Jessica FLOOR SUPERVISOR Prior Authorization (Viokace ) 12/11/2017 Telephone Gastroenterology U[employer] Jessica FLOOR SUPERVISOR Other (plan of care) 12/10/2017 Telephone Gastroenterology Moraima Jessica FLOOR SUPERVISOR Prior Authorization (Hydrocortisone rectal suppository 25mg ) 12/10/2017 Ancillary Radiology Outpatient, Radiologist Diagnosis unknown Orders 12/10/2017 Ancillary Radiology Outpatient, Radiologist Orders 12/10/2017 Ancillary Radiology Outpatient, Radiologist Diagnosis unknown Orders 12/09/2017 Office Visit Gastroenterology [employer] Jessica FLOOR SUPERVISOR Diarrhea, unspecified type (Primary Dx); Epigastric pain; [...] for Rosanne to review and advise 01/14/18 4083 () ENDOSCOPIC ULTRASOUND 01/31/2018 Results for this [...] OTHER RESULTS Procedure Date: 01/31/2018 12:[address] [facility]: [id number] Date of : 1985 Gender: Female Attending Physician: Hal Sparks MD Procedure: Upper EUS Indications: Acute recurrent pancreatitis Providers: Hal Sparks MD (Doctor), Jake Crocker MD (Fellow), Delilah Jarquin RN (Nurse), Jose Mcclure (Internal Grinding Machine Operator) Referring Physician: Randy Nunez MD, [...] 45 seconds Procedure Code(s): --- Professional --- 87952, Esophagogastroduodenoscopy, flexible, transoral; with endoscopic ultrasound examination limited to the esophagus, stomach or duodenum, and adjacent structures CPT copyright 2016 [employer]. All rights reserved. The codes documented in this report are preliminary and upon apns review may be revised to meet current [...] Address City/State/Zipcode Phone Number MAIN [facility] [address] [place] [address] * GIARDIA SCREEN,FECAL (12/11/2017) Narrative Performed At Performing Organization Address City/State/Zipcode Phone Number [facility] [address] [place] [address] * CULTURE-FECES W/SENSITIVITY (12/11/2017) Specimen Stool Narrative Performed At Performing Organization Address City/[facility]/Zipcode Phone Number MAIN LAB [address] [place] [address] * CRYPTOSPORIDUM,FECAL (12/11/2017) Specimen Stool Narrative Performed At Performing Organization Address City/State/Zipcode Phone Number MAIN LAB [address] [place] [address] * BASIC METABOLIC PANEL (12/09/2017 11:38 AM) [...] for questions. Specimen Blood Performing Organization Address City/[facility]/Zipcode Phone Number [facility] [address] [phone] * POC CREATININE, RAD (12/09/2017 9:55 AM) Creatinine, POC 0.8 0.4 - 1.00 MG/DL [facility] Performing Organization Address City/[facility]/Zipcode Phone Number MAIN LAB [address] [phone] * CT ABDOMEN W CONTRAST (12/09/2017 9:55 [...]
--- OUTSIDE RECORDS SUMMARY | 2018-03-01 21:30 | XMS REPORT | Encounter Summary ---
Author Author [facility] Organization [facility] Address Unknown Phone Unavailable Care Team Providers Care Sales Outfitter Name Role Phone Michael Sutton MD Unavailable Unavailable Mary Whittington MD PCP Jessica Valera OUTDOOR STUDIES PROFESSOR Unavailable Maggie Puente Unavailable Unavailable Mary Telles GEOLOGY SCIENTIST Unavailable Bam Ritter MD Unavailable Radha Bo HOTEL OR MOTEL RECEPTIONIST Unavailable Unavailable Jose Sanchez MD Unavailable Reason for Referral * Radiology Services (Routine) Status Reason Specialty Diagnoses / Referred By Referred To Procedures Contact Contact No Auth Needed Radiology Diagnoses Moraima, Jessica, Bhb Mri Chronic OUTDOOR STUDIES PROFESSOR [address] pancreatitis, [address] [place], [place] pancreatitis [place] [address] [address] type (HCC) [place], [place] Phone: P [phone] rocedures Phone: MRI MRCP [phone] Reason for Visit * Reason Comments Results Follow-up Phone Call Encounter Details Date Type Department Care Team Description 02/04/2018 Telephone [facility] UtCharo weavera, OUTDOOR STUDIES PROFESSOR Results; Follow-up Phone Physicians [address] Call Ortho and Medical [place] [address] [place] [address] [phone] [place] [address] Social History Tobacco Use Types [...] states she is currently in ER at [facility] d/t abd pain. Spoke to ER [...]
--- OUTSIDE RECORDS SUMMARY | 2018-03-01 21:30 | XMS REPORT | Encounter Summary ---
Author Author [facility] Organization [facility] Address Unknown Phone Unavailable Care Team Providers Care High Scaler Name Role Phone Michael Sutton MD Unavailable Unavailable Mary Whittington MD PCP Jessica Valera Unavailable Maggie Puente Unavailable Unavailable Mary Telles APRN Unavailable Bam Ritter MD Unavailable Radha Bo LPN Unavailable Unavailable Jose Sanchez MD Unavailable Encounter Details Date Type Department Care Team Description 02/04/2018 Procedure Pass [facility] Radiology [address] [place] [address] Social History Tobacco Use Types Packs/Day Years [...]
--- OUTSIDE RECORDS SUMMARY | 2018-03-01 21:30 | XMS REPORT | Encounter Summary ---
Author Author [facility] Organization [facility] Address Unknown Phone Unavailable Care Team Providers Care Job Honer Name Role Phone Michael Sutton MD Unavailable Unavailable Mary Whittington MD PCP Utech, Jessica GRANULATING MACHINE OPERATOR Unavailable Maggie Puente Unavailable Unavailable Mary Telles TANNING CONSULTANT Unavailable Bam Ritter MD Unavailable Radha Bo BALLOON DESIGN PRINTER Unavailable Unavailable Jose Sanchez MD Unavailable Reason for Referral * Radiology Services (Routine) Status Reason Specialty Diagnoses / Referred By Referred To Procedures Contact Contact No Auth Needed Radiology Diagnoses Utech, Jessica, Bhb Mri 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 [address] pancreatitis, [address] [place], [place] pancreatitis [place] [address] [address] type ([facility]) [place], [place] Phone: P [phone] rocedures Phone: MRI MRCP [phone] * Radiology Services (Routine) Status Reason Specialty Diagnoses / Referred By Referred To Procedures Contact Contact No Auth Needed Radiology Diagnoses Utech, Jessica, Bhb Mri 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 [address] pancreatitis, [address] [place] pancreatitis [place] [address] [address] type ([facility]) [place], [place] Phone: P [phone] rocedures Phone: MRI MRCP [phone] Reason for Visit * Radiology Services (Routine) Status Reason Specialty Diagnoses / Referred By Referred To Procedures Contact Contact No Auth Needed Radiology Diagnoses Utech, Jessica, Bhb Mri 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 [address] pancreatitis, [address] [place] pancreatitis [place] [address] [address] type (HCC) [place], [place] Phone: P [phone] rocedures Phone: MRI MRCP [phone] Encounter Details Date Type Department Care Team Description 02/19/2018 Hospital [facility] Utech, Jessica, GRANULATING MACHINE OPERATOR Encounter Hospital Radiology [address] [place] [address] [place] [address] [phone] Social History Tobacco Use Types Packs/Day Years [...] to three times a day as needed. ojruzh-kibqeffy-paeoieh Take 3 tablets by mouth 300 tablet [...]
--- OUTSIDE RECORDS SUMMARY | 2018-03-01 21:30 | XMS REPORT | Encounter Summary ---
Author Author [facility] Organization [facility] Address Unknown Phone Unavailable Care Team Providers Care Drop Machine Operator Name Role Phone Michael Sutton MD Unavailable Unavailable Mary Whittington MD PCP Jessica Valera Unavailable Maggie Puente Unavailable Unavailable Mary Telles APRN Unavailable Bam Ritter MD Unavailable Radha Bo LPN Unavailable Unavailable Jose Sanchez MD Unavailable Reason for Visit * Reason Comments Medication Refill Encounter Details Date Type Department Care Team Description 02/20/2018 Refill [facility] Randy Nunez MD Medication monitoring Physicians - Internal [address] [facility] encounter Medicine [place] [address] [place] [address] [address] [facility] [phone] [place] [address] [phone] Social History Tobacco Use Types Packs/Day Years [...]
--- OUTSIDE RECORDS SUMMARY | 2018-03-01 21:31 | XMS REPORT | Encounter Summary ---
Author Author [facility] Organization [facility] Address Unknown Phone Unavailable Care Team Providers Care Movie Operator Name Role Phone Michael Sutton MD Unavailable Unavailable Mary Whittington MD PCP Jessica Valera Unavailable Maggie Puente Unavailable Unavailable Mary Telles APRN Unavailable Bam Ritter MD Unavailable Radha Bo LPN Unavailable Unavailable Jsoe Sanchez MD Unavailable Encounter Details Date Type Department Care Team Description 01/14/2018 Prep for Case [facility] Randy Nunez MD Other chronic Physicians [address] pancreatitis (HCC) Ortho and Medical [place] 1023 (Primary Dx); [address] [place] [address] Intractable vomiting with [address] [phone] nausea, unspecified [place], [place] vomiting type [phone] Social History Tobacco [...]
--- OUTSIDE RECORDS SUMMARY | 2018-03-01 21:31 | XMS REPORT | Encounter Summary ---
Author Author [facility] Organization [facility] Address Unknown Phone Unavailable Care Team Providers Care High Density Talc Coater Operator Name Role Phone Michael Sutton MD [...] nausea, unspecified vomiting type [R11.2] P rocedures [place] ESOPHAGOGASTRODU ODENOSCOPY US SCOPE W/ADJ STRXRS ENDOSCOPIC ULTRASOUND REPORT ESOPHAGOGASTRODU ODENOSCOPY ENDOSCOPIC ULTRASOUND Encounter Details Date Type Department Care Team Description 01/31/2018 [facility] Hal Sparks MD Other chronic Encounter Endoscopy [address] pancreatitis (HCC) [address] [place] [address] [place] [address] [phone] Social History Tobacco Use Types Packs/Day Years [...] or concerns after your procedure please call [phone] M-F 8am-5:00 pm. After 5:00 pm, holidays or weekends call [phone] and ask for the GI Doctor machine operations supervisor. in this encounter Medications at Time of [...] to three times a day as needed. odwvjx-aueyczdc-pdadrtz Take 3 tablets by mouth 300 tablet [...] 06/03/2017 TOTBILI 0.4 06/03/2017 JONA Salcedo Pager [phone] in this encounter Plan of Treatment Date [...] OTHER RESULTS Procedure Date: 01/31/2018 12:46 PM [facility]: [id number] Date of : 1985 Gender: Female Attending Physician: Hal Sparks MD Procedure: Upper EUS Indications: Acute recurrent pancreatitis Providers: Hal Sparks MD (Doctor), Jake Crocker MD (Fellow), Delilah Jarquin RN (Nurse), Jose Mcclure (Fly Tier) Referring Physician: Randy Nunez MD, Jessica Valera [...] 45 seconds Procedure Code(s): --- Professional --- 79933, Esophagogastroduodenoscopy, flexible, transoral; with endoscopic ultrasound examination limited to the esophagus, stomach or duodenum, and adjacent structures CPT copyright 2016 [employer]. All rights reserved. The codes documented in this report are preliminary and upon computer language coder review may be revised to meet [...]
--- OUTSIDE RECORDS SUMMARY | 2018-03-01 21:31 | XMS REPORT | Encounter Summary ---
Author Author [facility] Organization [facility] Address Unknown Phone Unavailable Care Team Providers Care Quilter Fixer Name Role Phone Michael Sutton MD Unavailable Unavailable Mary Whittington MD PCP Jessica Valera Unavailable Maggie Puente Unavailable Unavailable Mary Telles APRN Unavailable Bam Ritter MD Unavailable Radha Bo LPN Unavailable Unavailable Jose Sanchez MD Unavailable Reason for Visit * Reason Comments Follow-up Phone Call Records Request Encounter Details Date Type Department Care Team Description 01/13/2018 Telephone [facility] Randy Nunez MD Follow- up Phone Call; Physicians - Internal [address] [place] [address] Records Request Medicine [place] [address] [place] [address] [address] [facility] [phone] [place] [address] [phone] Social History Tobacco Use Types Packs/Day Years [...] Patient has seen Dr. Sanchez, Surgeon in [place], [place] and believes patient needs another EUS. [...] aware requesting records from recent [facility] admission/discharge a few weeks ago, Dr. Sanchez and Dr. Whittington recent records to review. in this encounter Plan of Treatment Date Type Specialty Care Team Description 12/09/2017 Procedure Pass Oncology 12/09/2017 Procedure Pass Oncology as of this encounter Visit Diagnoses Not on filein this encounter
--- OUTSIDE RECORDS SUMMARY | 2018-03-01 21:31 | XMS REPORT | Encounter Summary ---
Author Author [facility] Organization [facility] Address Unknown Phone Unavailable Care Team Providers Care Celery Wrapper Name Role Phone Michael Sutton MD Unavailable Unavailable Mary Whittington MD PCP Jessica Valera Unavailable Maggie Puente Unavailable Unavailable Mary Telles APRN Unavailable Bam Ritter MD Unavailable Radha Bo LPN Unavailable Unavailable Jose Sanchez MD Unavailable Reason for Visit * Reason Comments Appointment Request Encounter Details Date Type Department Care Team Description 01/14/2018 Telephone [facility] Hal Sparks MD Appointment Request Physicians [address] Ortho and Medical [place] [address] [address] [address] [facility] [phone] [place] [address] Social History Tobacco Use Types [...] Upper Eus with Dr. Sparks. Routing to [place] to review and advise in this encounter Plan of Treatment Date Type Specialty Care Team Description 12/09/2017 Procedure Pass Oncology 12/09/2017 Procedure Pass Oncology as of this encounter Visit Diagnoses Not on filein this encounter
--- OUTSIDE RECORDS SUMMARY | 2018-03-01 21:31 | XMS REPORT | Encounter Summary ---
Author Author [facility] Organization [facility] Address Unknown Phone Unavailable Care Team Providers Care Memorial Marker Designer Name Role Phone Michael Sutton MD Unavailable Unavailable Mary Whittington MD PCP Jessica Valera Unavailable Maggie Puente Unavailable Unavailable Mary Telles APRN Unavailable Bam Ritter MD Unavailable Radha Bo LPN Unavailable Unavailable Jose Sanchez MD Unavailable Reason for Visit * Reason Comments Medication Update Encounter Details Date Type Department Care Team Description 12/25/2017 Telephone [facility] Abel Poe MD Medication Update Cancer Center - Exam [address] [facility] [place] [address] [place] [address] [place], [place] [phone] Social History Tobacco Use Types Packs/Day Years [...] from her abd mesh. Her doctors in [place] asked her to keep her physicians here in the loop. Will relay info to Dr. Poe. in this encounter Plan of Treatment Date Type Specialty Care Team Description 12/09/2017 Procedure Pass Oncology 12/09/2017 Procedure Pass Oncology as of this encounter Visit Diagnoses Not on filein this encounter
--- OUTSIDE RECORDS SUMMARY | 2018-03-01 21:31 | XMS REPORT | Encounter Summary ---
Author Author [facility] Organization [facility] Address Unknown Phone Unavailable Care Team Providers Care Securities Attorney Name Role Phone Michael Sutton MD [...] nausea, unspecified vomiting type [R11.2] P rocedures [place] ESOPHAGOGASTRODU ODENOSCOPY US SCOPE W/ADJ STRXRS ENDOSCOPIC ULTRASOUND REPORT ESOPHAGOGASTRODU ODENOSCOPY ENDOSCOPIC ULTRASOUND Encounter Details Date Type Department Care Team Description 01/31/2018 Surgery Gastrointenstinal Hal Sparks MD ESOPHAGOGASTRODUODENOSCOP Endoscopy [address] ENDOSCOPIC ULTRASOUND [address] [place] [address] [place] [address] [phone] Social History Tobacco Use Types Packs/Day Years [...] After 5:00 pm, holidays or weekends call [phone] and ask for the GI Doctor command and control systems integrator. in this encounter Medications at Time of [...] to three times a day as needed. rqgybt-dzjhvqen-menrzxp Take 3 tablets by mouth 300 tablet [...] RESULTS Procedure Date: 01/31/2018 12:46 PM CSN: [id number] Date of : 1985 Gender: Female Attending Physician: Hal Sparks MD Procedure: Upper EUS Indications: Acute recurrent pancreatitis Providers: Hal Sparks MD (Doctor), Jake Crocker MD (Fellow), Delilah Jarquin RN (Nurse), Jose Mcclure (Vibration Engineer) Referring Physician: Randy Nunez MD, Jessica Valera [...] 45 seconds Procedure Code(s): --- Professional --- 75269, Esophagogastroduodenoscopy, flexible, transoral; with endoscopic ultrasound examination limited to the esophagus, stomach or duodenum, and adjacent structures CPT copyright 2016 [employer]. All rights reserved. The codes documented in this report are preliminary and upon certified procedural coder review may be revised to meet [...]
--- OUTSIDE RECORDS SUMMARY | 2018-03-01 21:31 | XMS REPORT | Encounter Summary ---
Author Author [facility] Organization [facility] Address Unknown Phone Unavailable Care Team Providers Care Evaporator Operator Name Role Phone Michael Sutton MD Unavailable Unavailable Mary Whittington MD PCP Jessica Valera Unavailable Maggie Puente Unavailable Unavailable Mary Telles APRN Unavailable Bam Ritter MD Unavailable Radha Bo LPN Unavailable Unavailable Jose Sanchez MD Unavailable Reason for Visit * Reason Comments Follow-up Phone Call Encounter Details Date Type Department Care Team Description 01/07/2018 Telephone [facility] Randy Nunez MD Follow- up Phone Call Physicians - Internal [address] [facility] Medicine [place] [address] [place] [address] [address] [phone] [place] [address] [phone] Social History Tobacco Use Types Packs/Day Years [...]
--- OUTSIDE RECORDS SUMMARY | 2018-03-01 21:31 | XMS REPORT | Encounter Summary ---
Author Author [facility] Organization [facility] Address Unknown Phone Unavailable Care Team Providers Care Quick Print Operator Name Role Phone Michael Sutton MD Unavailable Unavailable Mary Whittington MD PCP Jessica Valera Unavailable Maggie Puente Unavailable Unavailable Mary Telles REPRODUCTION TECHNICIAN Unavailable Bam Ritter MD Unavailable Radha Bo [...] Gastrointenstinal Catherine Waters CRNA Event Endoscopy [address] [facility] [address] [place] [address] [place] [address] Anesthesia Record Procedure Name Responsible Anesthesia Start [...] to three times a day as needed. imsdlc-hfsnaumf-rpncoas (VIOKACE) 20,880-78,300- 78,300 unit tab Take 3 [...] with patient Plan discussed with: anesthesiologist and BUSGIRL. Comments: (Risks of GETA including sore throat, [...] to three times a day as needed. kwaizx-qduyqtrm-kvqfldo (VIOKACE) 20,880-78,300- 78,300 unit tab Take 3 [...] patient Blood Consent: consented Plan discussed with: BUSGIRL and anesthesiologist. Comments: (Risks of GETA including [...]
--- OUTSIDE RECORDS SUMMARY | 2018-03-01 21:31 | XMS REPORT | Encounter Summary ---
Author Author [facility] Organization [facility] Address Unknown Phone Unavailable Care Team Providers Care Advice Clerk Name Role Phone Michael Sutton MD Unavailable Unavailable Mary Whittington MD PCP Jessica Valera Unavailable Maggie Puente Unavailable Unavailable Mary Telles APRN Unavailable Bam Ritter MD Unavailable Radha Bo LPN Unavailable Unavailable Jose Sanchez MD Unavailable Reason for Visit * Reason Comments Medication Follow-up Encounter Details Date Type Department Care Team Description 12/17/2017 Telephone [facility] Jessica Valera ARNP Medication Follow-up Physicians [address] Ortho and Medical [place] [address] [place] [address] [address] [facility] [phone] [place] [address] Social History Tobacco Use Types [...] cramping and diarrhea. Spoke w/ Pao at [facility] who states pt has picked [...]
--- OUTSIDE RECORDS SUMMARY | 2018-03-01 21:31 | XMS REPORT | Encounter Summary ---
Author Author [facility] Organization [facility] Address Unknown Phone Unavailable Care Team Providers Care Pulverizer Feeder Name Role Phone Michael Sutton MD Unavailable Unavailable Mary Whittington MD PCP Jessica Valera Unavailable Maggie Puente Unavailable Unavailable Robert-Mary Moore APRN Unavailable Bam Ritter MD Unavailable Radha Bo LPN Unavailable Unavailable Jose Sanchez MD Unavailable Encounter Details Date Type Department Care Team Description 01/31/2018 Procedure Pass Gastrointenstinal Endoscopy [address] [place] [address] Social History Tobacco Use Types [...]
--- OUTSIDE RECORDS SUMMARY | 2018-03-01 21:32 | XMS REPORT | Encounter Summary ---
Author Author [facility] Organization [facility] Address Unknown Phone Unavailable Care Team Providers Care Die Barber Name Role Phone Michael Sutton MD Unavailable Unavailable Mary Whittington MD PCP Jessica Valera Unavailable Maggie Puente Unavailable Unavailable Mary Telles APRN Unavailable Bam Ritter MD Unavailable Radha Bo LPN Unavailable Unavailable Jose Sanchez MD Unavailable Reason for Visit * Reason Comments C Diff Positive C Diff Encounter Details Date Type Department Care Team Description 12/13/2017 Telephone [facility] Jessica Valera ARNP C Diff (Positive C Diff) Physicians [address] [facility] Ortho and Medical [place] [address] [place] [address] [address] [facility] [phone] [place] [address] Social History Tobacco Use Types [...] and cleaning with a 1:10 bleach solution, [employer] message sent with additional information. Pt to call PRN and w/ progress report after finishing abx. * Telephone Encounter - Radha Bo LPN - 12/13/2017 11:39 AM CDT Attempted to contact pt. LVM to return call. * Telephone Encounter - Jessica Valera ARNP - 12/13/2017 11:35 AM CDT Due to her significant N/V called Luke/Pharmacist at [facility] to see if Vanco 125 mg [...]
--- OUTSIDE RECORDS SUMMARY | 2018-03-01 21:32 | XMS REPORT | Encounter Summary ---
Author Author [facility] Organization [facility] Address Unknown Phone Unavailable Care Team Providers Care Capacity Analyst Name Role Phone Michael Sutton MD Unavailable Unavailable Mary Whittington MD PCP Jessica Valera Unavailable Maggie Puente Unavailable Unavailable Mary Telles INDUSTRIAL TRUCK OPERATOR Unavailable Bam Ritter MD Unavailable Radha Bo LPN Unavailable Unavailable Jose Sanchez MD Unavailable Reason for Visit * Reason Comments Prior Authorization Viokace Encounter Details Date Type Department Care Team Description 12/13/2017 Telephone [facility] Jessica Valera ARNP Prior Authorization Physicians [address] (Viokace ) Ortho and Medical [place] [address] [place] [address] [phone] [place] [address] Social History Tobacco Use Types [...] CDT Contacted patient's insurance at phone number [phone] to check the status of PA on medication Viokace, PA has been approved with authorized dates of 12/11- with no end date given yet. * Telephone Encounter - Senait Jarquin - 12/13/2017 10:42 AM CDT Completed PA for medication Viokace diagnosis chronic pancreatitis through [employer] guillermo code [id number], waiting for approval or denial in this encounter Plan of Treatment Date Type Specialty Care Team Description 12/09/2017 Procedure Pass Oncology 12/09/2017 Procedure Pass Oncology as of this encounter Visit Diagnoses Not on filein this encounter
--- OUTSIDE RECORDS SUMMARY | 2018-03-01 21:32 | XMS REPORT | Encounter Summary ---
Author Author [facility] Organization [facility] Address Unknown Phone Unavailable Care Team Providers Care Production Hand Name Role Phone Michael Sutton MD Unavailable Unavailable Mary Whittington MD PCP UtJessica weaver Unavailable Maggie Puente Unavailable Unavailable Mary Telles APRN Unavailable Bam Ritter MD Unavailable Radha Bo LPN Unavailable Unavailable Jose Sanchez MD Unavailable Encounter Details Date Type Department Care Team Description 12/16/2017 Orders Only [facility] Jessica Valera ARNP Diarrhea, unspecified Physicians [address] type Ortho and Medical [place] [address] [place] [address] [phone] [place] [address] Social History Tobacco Use Types [...]
--- OUTSIDE RECORDS SUMMARY | 2018-03-01 21:32 | XMS REPORT | Encounter Summary ---
Author Author [facility] Organization [facility] Address Unknown Phone Unavailable Care Team Providers Care Product Marketing Executive Name Role Phone Michael Sutton MD Unavailable Unavailable Mary Whittington MD PCP Jessica Valera Unavailable Maggie Puente Unavailable Unavailable Mary Telles APRN Unavailable Bam Ritter MD Unavailable Radha Bo LPN Unavailable Unavailable Jose Sanchez MD Unavailable Reason for Visit * Reason Comments Other plan of care Encounter Details Date Type Department Care Team Description 12/11/2017 Telephone [facility] Jessica Valera ARNP Other (plan of care) Physicians [address] Ortho and Medical [place] [address] [place] [address] [address] [facility] [phone] [place] [address] Social History Tobacco Use Types [...]
--- OUTSIDE RECORDS SUMMARY | 2018-03-01 21:32 | XMS REPORT | Encounter Summary ---
Author Author [facility] Organization [facility] Address Unknown Phone Unavailable Care Team Providers Care Technical Solutions Engineer Name Role Phone Michael Sutton MD Unavailable Unavailable Mary Whittington MD PCP Jessica Valera Unavailable Maggie Puente Unavailable Unavailable Mary Telles EYELET OPERATOR Unavailable Bam Ritter MD Unavailable Radha Bo PATTERN CHART WRITER Unavailable Unavailable Jose Sanchez MD Unavailable Reason for Referral * Radiology Services Status Reason Specialty Diagnoses / Referred By Referred To Procedures Contact Contact No Auth Needed Radiology Diagnoses Abel Poe MD [address] Left renal mass [address] [place] [address] [place] [address] [place] [address] [place], [place] Phone: CONTRAST [phone] Phone: * Radiology Services Status Reason Specialty Diagnoses / Referred By Referred To Procedures Contact Contact No Auth Needed Radiology Diagnoses Abel Poe MD [address] Left renal mass [address] [place] [address] rocedures MS [facility] [place] [address] [address] [place], [place] Phone: CONTRAST [phone] Phone: * Radiology Services Status Reason Specialty Diagnoses / Referred By Referred To Procedures Contact Contact No Auth Needed Radiology Diagnoses Abel Poe MD [address] Left renal mass [address] [place] [address]ise [address] [place] [address] [place] [address] CONTRAST [phone] Phone: * Radiology Services Status Reason Specialty Diagnoses / Referred By Referred To Procedures Contact Contact No Auth Needed Radiology Diagnoses Abel Poe MD [address] Left renal mass [address] [place] [address] [place] [address] [place] [address] [place] [id number] Phone: Reason for Visit * Radiology Services Status Reason Specialty Diagnoses / Referred By Referred To Procedures Contact Contact No Auth Needed Radiology Diagnoses Abel Poe MD [address] Left renal mass [address] [place] [address] ro[address] [place] [address] [place] [address] [address] [place] Phone: CONTRAST [phone] Phone: Encounter Details Date Type Department Care Team Description 12/09/2017 [facility] Abel Poe MD Encounter [facility] Radiology [address] [place] [address] [place] [address] [phone] Social History Tobacco Use Types Packs/Day Years [...] Number [facility] [address] [place] [address] * CT [address] W CONTRAST (12/09/2017 9:55 [...]
--- OUTSIDE RECORDS SUMMARY | 2018-03-01 21:32 | XMS REPORT | Encounter Summary ---
Author Author [facility] Organization [facility] Address Unknown Phone Unavailable Care Team Providers Care Electrician Locomotive Name Role Phone Michael Sutton MD Unavailable Unavailable Mary Whittington MD PCP Jessica Valera Unavailable Maggie Puente Unavailable Unavailable Mary Telles APRN Unavailable Bam Ritter MD Unavailable Camron Bo LPN Unavailable Unavailable Jose Sanchez MD Unavailable Reason for Visit * Reason Comments Prior Authorization Hydrocortisone rectal suppository 25mg Encounter Details Date Type Department Care Team Description 12/10/2017 Telephone [facility] Jessica Valera ARNP Prior Authorization Physicians - Internal [address] (Hydrocortisone rectal Medicine [place] 1023 suppository 25mg ) [place] [address] [address] [facility] [phone] [place] [address] [phone] Social History Tobacco Use Types Packs/Day Years [...] stated she is seeing her PCP in [place], [place] today and will call back office [...] via fax and it was denied. Per [employer] representatives alternative medication that is covered is Hydrocortisone [...]
--- OUTSIDE RECORDS SUMMARY | 2018-03-01 21:32 | XMS REPORT | Encounter Summary ---
Author Author [facility] Organization [facility] Address Unknown Phone Unavailable Care Team Providers Care Depalletizer Operator Name Role Phone Michael Sutton MD Unavailable Unavailable Mary Whittington MD PCP Jessica Valera Unavailable Maggie Puente Unavailable Unavailable Mary Telles APRN Unavailable Bam Ritter MD Unavailable Radha Bo LPN Unavailable Unavailable Jose Sanchez MD Unavailable Reason for Visit * Reason Comments Other Encounter Details Date Type Department Care Team Description 12/13/2017 Telephone [facility] Randy Nunez MD Other Physicians - Internal [address] [facility] Medicine MS [address] [place] [address] [address] [facility] [phone] [place] [address] [phone] Social History Tobacco Use Types Packs/Day Years [...]
--- OUTSIDE RECORDS SUMMARY | 2018-03-01 21:32 | XMS REPORT | Encounter Summary ---
Author Author [facility] Organization [facility] Address Unknown Phone Unavailable Care Team Providers Care Ship Steward Name Role Phone Michael Sutton MD Unavailable Unavailable Mary Whittington MD PCP Jessica Valera Unavailable Maggie Puente Unavailable Unavailable Mary Telles APRN Unavailable Bam Ritter MD Unavailable Radha Bo LPN Unavailable Unavailable Jose Sanchez MD Unavailable Encounter Details Date Type Department Care Team Description 12/10/2017 Ancillary Rad Outpatient, Radiologist Diagnosis unknown Orders [address] [place] [address] Social History Tobacco Use Types [...]
--- OUTSIDE RECORDS SUMMARY | 2018-03-01 21:32 | XMS REPORT | Encounter Summary ---
Author Author [facility] Organization [facility] Address Unknown Phone Unavailable Care Team Providers Care Binder Operator Name Role Phone Michael Sutton MD Unavailable Unavailable Mary Whittington MD PCP Jessica Valera Unavailable Maggie Puente Unavailable Unavailable Mary Telles PROGRESSIVE DIE MAKER Unavailable Bam Ritter MD Unavailable Radha Bo PRINT JOURNALIST Unavailable Unavailable Jose Sanchez MD Unavailable Reason for Visit * Reason Comments Abdominal pain Constipation Diarrhea Nausea Vomiting Encounter Details Date Type Department Care Team Description 12/09/2017 Office Visit [facility] Jessica Valera ARNP Diarrhea, unspecified Physicians - Internal [address] type (Primary Dx); Medicine [place] 1023 Epigastric pain; [place] [address] Chronic pancreatitis, [address] [phone] [place] [address] type (HCC); [phone] Nausea and vomiting, intractability of vomiting not [...] this encounter Instructions * Patient Instructions - Jsesica Valera ARNP - 12/09/2017 3:30 PM CDT [...] if you have any questions or concerns. [phone]. in this encounter Progress Notes * Jessica [...] has been to cancer Center treatment in [place] regarding a left lung nodule. She is scheduled to go back there again early in December. She also had a repeat CT chest/abdomen CT today which shows a stable left lobe pulmonary or pleural nodule which is apparently unchanged from previous imaging. Dr. Poe/ nephrology who ordered a CT recommended repeat imaging in 6 months. She plans to discuss this recommendation with her [place] provider as well. Since I saw her [...] repeat imaging 6 months. Patient seen at [facility] after 08/2017 OV, has follow up [...] with her colonoscopy in 2017 done in [place]. Will treat internal hemorrhoids with Anusol HC suppository nightly for at least 7 days and treat external hemorrhoids with Preparation H klmi-wkk-ldfkged 2-3 times a day. She is to [...] review. 5. She will follow-up at the [facility] in [place] early December as planned regarding the left [...] Address City/State/Zipcode Phone Number MAIN LAB [address] [place] [address] * GIARDIA SCREEN,FECAL (12/11/2017) Narrative Performed At Performing Organization Address City/[facility]/Zipcode Phone Number MAIN LAB [address] [place] [address] * CRYPTOSPORIDUM,FECAL (12/11/2017) Specimen Stool Narrative Performed At Performing Organization Address City/[facility]/Zipcode Phone Number MAIN LAB [address] [place] [address] * CULTURE-FECES W/SENSITIVITY (12/11/2017) Specimen Stool Narrative Performed At Performing Organization Address [facility] Phone Number [facility] LAB [address] [place] [address] * C DIFFICILE BY PCR (12/11/2017) Narrative Performed At Performing Organization Address City/State/Zipcode Phone Number OTHER OUTSIDE LAB in this encounter Visit Diagnoses Diagnosis Diarrhea, unspecified type - Primary Epigastric pain Abdominal pain, epigastric Chronic pancreatitis, unspecified pancreatitis type (HCC) Nausea and vomiting, intractability of vomiting not specified, unspecified vomiting type
--- OUTSIDE RECORDS SUMMARY | 2018-03-01 21:32 | XMS REPORT | Encounter Summary ---
Author Author [facility] Organization [facility] Address Unknown Phone Unavailable Care Team Providers Care Spectral Scientist Name Role Phone Michael Sutton MD Unavailable Unavailable Mary Whittington MD PCP Jessica Valera Unavailable Maggie Puente Unavailable Unavailable Mary Telles APRN Unavailable Bam Ritter MD Unavailable Radha Bo LPN Unavailable Unavailable Jose Sanchez MD Unavailable Encounter Details Date Type Department Care Team Description 12/10/2017 Ancillary Rad Outpatient, Radiologist Diagnosis unknown Orders [address] [place] [address] Social History Tobacco Use Types [...]
--- OUTSIDE RECORDS SUMMARY | 2018-03-01 21:32 | XMS REPORT | Encounter Summary ---
Author Author [facility] Organization [facility] Address Unknown Phone Unavailable Care Team Providers Care Leadite Heater Name Role Phone Michael Sutton MD Unavailable Unavailable Mary Whittington MD PCP UtJessica weaver Unavailable Maggie Puente Unavailable Unavailable Mary Telles APRN Unavailable Bam Ritter MD Unavailable Radha Bo LPN Unavailable Unavailable Jose Sanchez MD Unavailable Encounter Details Date Type Department Care Team Description 12/17/2017 Orders Only [facility] Jessica Valera ARNP Diarrhea, unspecified Physicians [address] type Ortho and Medical [place] [address] [place] [address] [phone] [place] [address] Social History Tobacco Use Types [...] Stool Narrative Performed At Performing Organization Address City/[facility] Phone Number [facility] [address] [place] [address] * GIARDIA SCREEN,FECAL (12/11/2017) Narrative Performed At Performing Organization Address [facility]/Zipcode Phone Number [facility] LAB [address] [place] [address] * CRYPTOSPORIDUM,FECAL (12/11/2017) Specimen Stool Narrative Performed At Performing Organization Address [facility] Phone Number [facility] LAB [address] [place] [address] * CULTURE-FECES W/SENSITIVITY (12/11/2017) Specimen Stool Narrative Performed At Performing Organization Address [facility] Phone Number [facility] [address] [place] [address] in this encounter Visit Diagnoses Diagnosis Diarrhea, unspecified type
--- OUTSIDE RECORDS SUMMARY | 2018-03-01 21:32 | XMS REPORT | Encounter Summary ---
Author Author [facility] Organization [facility] Address Unknown Phone Unavailable Care Team Providers Care Semiconductor Packages Platemaker Name Role Phone Michael Sutton MD Unavailable Unavailable Mary Whittington MD PCP Jessica Valera Unavailable Maggie Puente Unavailable Unavailable Mary Telles APRN Unavailable Bam Ritter MD Unavailable Radha Bo LPN Unavailable Unavailable Jose Sanchez MD Unavailable Encounter Details Date Type Department Care Team Description 12/10/2017 Ancillary Rad Outpatient, Radiologist Orders [address] [place] [address] Social History Tobacco Use Types [...]
--- OUTSIDE RECORDS SUMMARY | 2018-03-01 21:33 | XMS REPORT | Encounter Summary ---
Author Author [facility] Organization [facility] Address Unknown Phone Unavailable Care Team Providers Care Melter Operator Name Role Phone Michael Sutton MD Unavailable Unavailable Mary Whittington MD PCP Jessica Valera Unavailable Maggie Puente Unavailable Unavailable Mary Telles APRN Unavailable Bam Ritter MD Unavailable Radha Bo LPN Unavailable Unavailable Jose Sanchez MD Unavailable Encounter Details Date Type Department Care Team Description 05/06/2017 Procedure Pass [facility] Radiology [address] [place] [address] Social History Tobacco Use Types [...]
--- OUTSIDE RECORDS SUMMARY | 2018-03-01 21:33 | XMS REPORT | Encounter Summary ---
Author Author [facility] Organization [facility] Address Unknown Phone Unavailable Care Team Providers Care Joy Loader Name Role Phone Michael Sutton MD Unavailable Unavailable Mary Whittington MD PCP Jessica Valera Unavailable Maggie Puente Unavailable Unavailable Mary Telles APRN Unavailable Bam Ritter MD Unavailable Radha Bo LPN Unavailable Unavailable Jose Sanchez MD Unavailable Encounter Details Date Type Department Care Team Description 05/06/2017 Procedure Pass [facility] Radiology [address] [place] [address] Social History Tobacco Use Types [...]
--- OUTSIDE RECORDS SUMMARY | 2018-03-01 21:33 | XMS REPORT | Encounter Summary ---
Author Author [facility] Organization [facility] Address Unknown Phone Unavailable Care Team Providers Care Berry Picker Name Role Phone Michael Sutton MD Unavailable Unavailable Mary Whittington MD PCP Jessica Valera Unavailable Maggie Puente Unavailable Unavailable Mary Telles SUSTAINMENT LOGISTICS ANALYST Unavailable Bam Ritter MD Unavailable Radha Bo LEAD SOFTWARE TESTER Unavailable Unavailable Jose Sanchez MD Unavailable Reason for Referral * Radiology Services Status Reason Specialty Diagnoses / Referred By Referred To Procedures Contact Contact New Request Radiology Diagnoses Abel Poe MD Left renal mass [address] [place] [address] ABDOMEN [place], [place] [address] * Radiology Services Status Reason Specialty Diagnoses / Referred By Referred To Procedures Contact Contact New Request Radiology Diagnoses Abel Poe MD Left renal mass [address] [place] [address] CHEST [place], [place] [address] Reason for Visit * Reason Comments Heme/Onc Care Encounter Details Date Type Department Care Team Description 12/09/2017 Office Visit [facility] Abel Poe MD Left renal mass ([facility] Exam [address] Dx) [facility] [place] [address] [place] [address] [place], [place] [phone] Social History Tobacco Use Types Packs/Day Years [...]
--- OUTSIDE RECORDS SUMMARY | 2018-03-01 21:33 | XMS REPORT | Encounter Summary ---
Author Author [facility] Organization [facility] Address Unknown Phone Unavailable Care Team Providers Care Outdoor Recreation Specialist Name Role Phone Michael Sutton MD Unavailable Unavailable Mary Whittington MD PCP Jessica Valera Unavailable Maggie Puente Unavailable Unavailable Mary Telles APRN Unavailable aBm Ritter MD Unavailable Radha Bo LPN Unavailable Unavailable Jose Sanchez MD Unavailable Reason for Visit * Reason Comments Other Encounter Details Date Type Department Care Team Description 12/04/2017 Telephone [facility] Randy Nunez MD Other Physicians - Internal [address] [facility] Medicine [place] [address] [place] [address] [address] [facility] [phone] [place] [address] [phone] Social History Tobacco Use Types Packs/Day Years [...]
--- OUTSIDE RECORDS SUMMARY | 2018-03-01 21:34 | XMS REPORT ---
Author Author SAI CARMEN [facility] Address [address] [place] [address] Care Team Providers Care Human Performance Technologist Name Role Phone MARCIO GIBBSY Unavailable PROBLEMS Type Condition ICD9-CM Code MOY20-YD Code Onset Dates Condition Status SNOMED Code Problem Polydipsia R63.1 Active 74969088 Problem Trichotillomania F63.3 Active 78099512 Problem Atelectasis J98.11 Active 59999620 Problem Intestinal malabsorption, unspecified K90.9 Active 93651064 Problem Chronic fatigue R53.82 Active 72478496 Problem Generalized social phobia F40.11 Active 33154166 Problem Restless leg syndrome G25.81 Active 78246914 Problem Moderate episode of recurrent major depressive disorder F33.1 Active 977980913 Problem Chronic post-traumatic stress disorder (PTSD) F43.12 Active 699257869 Problem History of renal cell carcinoma Z85.528 Active 848595465 Problem Chronic tension-type headache, intractable G44.221 Active 062911578 Problem Nodule of left lung R91.1 Active 496938244 Problem Hirsuties L68.0 Active 485641537 Problem FH: polycystic ovary Z84.2 Active 451105258 Problem Morbid (severe) obesity due to excess calories E66.01 Active 157762844 Problem Chronic pancreatitis K86.1 Active 685325029 Problem Hyperlipidemia, mixed E78.2 Active 492618934 Problem Asthma J45.909 Active 174041322 ALLERGIES No Information ENCOUNTERS Encounter Location Date Diagnosis [facility] [id number], [place] [address] Mar, [facility] [id number], [place] [address] Feb, [facility] [id number], [place] [address] Feb, [facility] [id number] [place] [address] 62434- 0983 Jan, Acute pain of right knee M25.561 ; Right upper quadrant abdominal pain R10.11 and BMI 45.0-49.9, adult Z68.42 [facility] [id number] [place] [address] 28206- 7692 Jan, [facility] [id number] [place] [address] 84041- 0767 Jan, [facility] [id number] [place] [address] 20367- 4991 Dec, [facility] [id number] [place] [address] 45528- 3950 Dec, Intestinal malabsorption, unspecified K90.9 and Diarrhea, unspecified R19.7 [facility] [id number] [place] [address] 23874- 1055 Dec, [facility] [id number] [place] [address] 22079- 6796 Dec, Strep throat J02.0 ; Intestinal malabsorption, unspecified K90.9 ; Diarrhea, unspecified R19.7 ; Postoperative seroma involving digestive system after non-digestive system procedure K91.873 ; Hyperlipidemia, mixed E78.2 and BMI 45.0-49.9, adult Z68.42 [facility] [id number] [place] [address] 26191- 8687 Dec, [facility] [id number] [place] [address] 82428- 3013 Dec, Nausea R11.0 [facility] [id number] [place] [address] 38458- 0423 Dec, [facility] [id number] [place] [address] 57658 -2969 Dec, Sore throat J02.9 ; Strep throat J02.0 and BMI 45.0-49.9, adult Z68.42 [facility] [address] [facility] [id number] [place] [address]- 3410 Dec, [facility] [address] [facility] [id number] [place] [address]- 5223 Dec, [facility] [address] [facility] [id number] [place] [address]- 9360 Dec, [facility] [address] [facility] [id number], [place] [address] 4762 Dec, [facility] [address] [facility] [id number] [place] [address]- 4112 Dec, [facility] [address] [facility] [id number] [place] [address]- 8204 Dec, [facility] [address], [place] [address] 9597 Dec, [facility] [id number], [place] [address] 2253 Dec, [facility] [id number], [place] [address] 4702 Dec, Clostridium difficile colitis A04.72 ; Intractable vomiting with nausea, unspecified vomiting type R11.2 and BMI 45.0-49.9, adult Z68.42 [facility] [address], [place] [address] 5061 Dec, [facility] [id number], [place] [address] 9404 Nov, [facility] [id number], [place] [address]- 8179 Nov, [facility] [id number], [place] [address]- 4355 Nov, [facility] [id number], [place] [address] 6019 Nov, [facility] [address], [place] [address] Nov, [address] [id number] [place] [address] 46054- 1590 Nov, Hyperlipidemia, mixed E78.2 [facility] [id number] [place] [address] 01582 -6921 Nov, Acute suppurative otitis media of right ear without spontaneous rupture of tympanic membrane, recurrence not specified H66.001 and BMI 45.0-49.9, adult Z68.42 [address] [facility] [id number] [place] [address] 30306- 6338 Nov, Hyperlipidemia, mixed E78.2 [address] [id number] [place] [address] 42110- 5389 Nov, [address] [place] [address] 75000- 0469 Nov, [address] [id number] [place] [address] 47216- 3279 Nov, Nodule of left lung R91.1 [id number] [place] [address] 73237- 1270 Nov, Medicare annual wellness visit, initial Z00.00 [...] adult Z68.42 and Encounter for immunization Z23 [address] [id number] [place] [address] 95964- 6684 October, [address] [address] 26277- 1133 October, Nodule of left lung R91.1 [facility] [id number] [place] [address] 71224- 0800 October, Nodule of left lung R91.1 [address] [facility] [id number] [place] [address] 90949- 8236 October, Recurrent major depressive disorder, in partial remission F33.41 ; Restless leg syndrome G25.81 ; Generalized social phobia F40.11 ; Chronic post-traumatic stress disorder (PTSD) F43.12 ; BMI 45.0-49.9, adult Z68.42 and Trichotillomania F63.3 [address] [id number] [place] [address] 90157- 5033 October, [address] [id number] [place] [address] 86975- 3263 Sep, Chronic fatigue R53.82 and BMI 45.0-49.9, adult Z68.42 [address] [facility] [id number] [place] [address] 06165- 6320 Aug, [address] [id number] [place] [address] 49031- 4556 Jul, Restless leg syndrome G25.81 and B12 deficiency E53.8 [address] [id number] [place] [address] 89241- 6694 Jul, [address] [id number] [place] [address] 58978- 7615 Jul, [address] [id number] [place] [address] 30695- 2297 Jun, [address] [id number] [place] [address] 42800- 9136 Jun, Fatigue, unspecified type R53.83 ; History of renal cell carcinoma Z85.528 ; Chronic pancreatitis K86.1 ; Restless leg syndrome G25.81 ; Dark urine R82.99 and BMI 45.0-49.9, adult Z68.42 [place] [address], [place] [address]- 2731 Jun, [facility] [address], [place] [address]- 9209 Jun, [facility] [address], [place] [address]- 6141 Jun, [facility] [id number] [place] [address] 83298- 2299 Jun, [facility] [address], [place] [address]- 5362 May, Chronic post-traumatic stress disorder (PTSD) F43.12 ; Moderate episode of recurrent major depressive disorder F33.1 ; Trichotillomania F63.3 and Generalized social phobia F40.11 [address] [address] [place] [address] 69757- 3540 May, [address] [address], [place] [address]- 4754 May, Chronic post-traumatic stress disorder (PTSD) F43.12 ; Moderate episode of recurrent major depressive disorder F33.1 ; Trichotillomania F63.3 and Generalized social phobia F40.11 [address] [address], [place] [address]- 0935 May, Hyperlipidemia, mixed E78.2 ; Morbid (severe) obesity due to excess calories E66.01 ; Chronic post-traumatic stress disorder (PTSD) F43.12 ; Moderate episode of recurrent major depressive disorder F33.1 ; Trichotillomania F63.3 and Generalized social phobia F40.11 [address] [address], [place] [address]- 4500 Apr, [address] [address], [place] [address]- 1566 Apr, Hyperlipidemia, mixed E78.2 ; Morbid (severe) obesity due to excess calories E66.01 ; Chronic post-traumatic stress disorder (PTSD) F43.12 ; Moderate episode of recurrent major depressive disorder F33.1 ; Trichotillomania F63.3 and Generalized social phobia F40.11 [address] [id number] [place] [address] 59286- 0758 Apr, Trichotillomania F63.3 ; Generalized social phobia F40.11 ; Chronic post-traumatic stress disorder (PTSD) F43.12 and Moderate episode of recurrent major depressive disorder F33.1 [address] [id number] [place] [address] 79297- 0295 Apr, [address] [place] 62129- 5453 Apr, [address] [id number] [place] [address] 08938- 4634 Mar, Moderate episode of recurrent major depressive disorder F33.1 ; Trichotillomania F63.3 ; Chronic post-traumatic stress disorder (PTSD) F43.12 ; Generalized social phobia F40.11 and Restless leg syndrome G25.81 [address] [address] 72418- 8834 Mar, [address] [id number] [place] [address] 74184- 4961 Mar, [address] [id number] [place] [address] 05703- 9545 Feb, Left kidney mass N28.89 [address] [id number] [place] [address] 78490- 5213 Jan, [address] [place] [address] 17717- 6276 Dec, Polydipsia R63.1 ; Chronic pancreatitis K86.1 and Fatigue, unspecified type R53.83 [address] [id number] [place] [address] 95344- 1283 Nov, [address] [address], [place] [address]- 0823 13 Nov, 2016 [facility] [id number] [place] [address] 14865- 0887 Nov, Headache around the eyes R51 [facility] [id number] [place] [address] 21898- 5293 Nov, [facility] [id number] [place] [address] 12247- 9221 October, STD exposure Z20.2 [facility] [id number] [place] [address] 34669- 7280 October, STD exposure Z20.2 [facility] [id number] [place] [address] 82632- 8494 October, Chronic post-traumatic stress disorder (PTSD) F43.12 ; Generalized social phobia F40.11 ; Trichotillomania F63.3 and Restless leg syndrome G25.81 [facility] [id number] [place] [address] 77583- 1600 October, [facility] [id number] [place] [address] 10676- 2154 Sep, [facility] [id number] [place] [address] 83686- 2922 Aug, [facility] [id number] [place] [address] 11303- 4594 Aug, [facility] [id number] [place] [address] 49643- 4482 Aug, Neck mass R22.1 [facility] [id number] [place] [address] 90756- 9459 Aug, Atelectasis J98.11 [facility] [address] [place] [address] 58709- 2190 28 Jul, 2016 Hyperlipidemia, mixed E78.2 ; Atypical pneumonia J18.9 and Neck mass R22.1 [address] [id number] [place] [address] 08993- 1370 15 Jul, 2016 Hemoptysis R04.2 [address] [address] [place] [address] 06587- 6161 08 Jul, 2016 Acute non-recurrent pansinusitis J01.40 ; Hemoptysis R04.2 ; Polydipsia R63.1 and Malaise R53.81 [facility] [id number] [place] [address] 39607 -5728 May, Other viral agents as the cause of diseases classified elsewhere B97.89 and Acute upper respiratory infection, unspecified J06.9 [facility] [id number] [place] [address] 66278 -1961 Mar, Nausea R11.0 [facility] [id number] [place] [address] 20937 -8191 Dec, Hives L50.9 [address] [id number] [place] [address] 16214- 1427 Dec, [facility] [id number] [place] [address] 62627 -6478 Dec, Cutaneous abscess of limb, unspecified L02.419 ; Cellulitis of unspecified part of limb L03.119 ; Encounter for incision and drainage procedure Z01.89 and Encounter for recheck of abscess following incision and drainage Z09 [facility] [id number] [place] [address] 42905 -9627 09 Dec, 2015 Abscess of leg, right L02.415 [address] [address] [place] [address] 88443- 1110 Dec, Cellulitis of unspecified part of limb L03.119 and Cutaneous abscess of limb, unspecified L02.419 [address] [place] [address] 44432- 2257 Dec, [address] [address] [place] [address] 51018- 8667 Dec, [facility] [id number] [place] [address] 67427 -9353 Aug, [facility] [id number] [place] [address] 11202- 9975 Aug, [facility] [id number] [place] [address] 43059 -5337 04 Jul, 2015 Pain in unspecified wrist M25.539 and Back pain, thoracic M54.6 [facility] [id number] [place] [address] 81112 -5231 Jun, Strain of right wrist, initial encounter S66.911A [place] [id number] [place] [address] 50377- 2451 11 Jun, 2015 Chronic pancreatitis, unspecified pancreatitis type K86.1 ; Hirsuties L68.0 ; Morbid (severe) obesity due to excess calories E66.01 ; Chronic pancreatitis K86.1 and Asthma J45.909 [address] [address] [place] [address] 57930- 5182 May, [place] [id number] [place] [address] 19120- 8157 May, Hyperlipidemia, mixed E78.2 and Muscle spasm of back M62.830 [place] [address] [place] [address] 04031- 1018 30 Apr, 2015 [place] [id number] [place] [address] 92984- 9077 16 Apr, 2015 Torticollis M43.6 [place] [id number] [place] [address] 49249- 7119 09 Apr, 2015 Right-sided thoracic back pain M54.6 [place] [id number] [place] [address] 67091- 0696 15 Mar, 2015 Rash R21 [place] [address], [place] [address]- 6899 Mar, [facility] [address] [place] [address] 20763- 0716 Jan, [facility] [address], [place] [address]- 4856 Dec, [facility] [id number] [place] [address] 93545- 9265 Dec, Urinary frequency 788.41 and Nocturia more than twice per night 788.43 [facility] [id number] [place] [address] 81668- 4638 Nov, [facility] [id number] [place] [address] 22761- 1539 Nov, [facility] [id number] [place] [address] 74954- 4482 Nov, Abdominal pain 789.00 [facility] [id number] [place] [address] 53808- 1066 October, TDAP DX V06.1 [facility] [id number] [place] [address] 11227- 5222 October, [facility] [address], [place] [address]- 6747 October, Disturbance of skin sensation 782.0 ; Wrist pain, right 719.43 ; Hyperlipidemia 272.4 and Skin lesion of face 709.9 [facility] [address], [place] [address]- 5908 Sep, [facility] [id number] [place] [address] 18402- 9644 Sep, [facility] [address], [place] [address]- 9219 Aug, [facility] [id number] [place] [address] 82013- 7612 Aug, [facility] [place] [facility] [address] [id number] [place] [address]- 0143 23 Aug, 2014 [facility] [place] [facility] [address] [id number] [place] [address]- 5209 23 Aug, 2014 [facility] [place] [facility] [address] [id number] [place] [address]- 2012 16 Aug, 2014 [facility] [place] [facility] [address] [id number] [place] [address]- 0197 16 Aug, 2014 [facility] [place] [facility] [address] [id number] [place] [address]- 7615 14 Aug, 2014 [facility] [place] [facility] [address] [id number] [place] [address]- 4563 14 Aug, 2014 [facility] [place] [facility] [address] [id number] [place] [address]- 5461 Aug, [facility] [place] [facility] [address] [id number] [place] [address]- 2457 Aug, [facility] [place] [facility] [address] [id number] [place] [address]- 2061 Aug, [facility] [place] [facility] [address] [id number] [place] [address]- 0785 Aug, [facility] [place] [facility] [address] [id number] [place] [address]- 5933 Aug, [facility] [place] [facility] [address] [id number], [place] [address]- 5999 Aug, [facility] [place] [facility] [address] [id number] [place] [address]- 6443 Jul, [facility] [place] [facility] [address] [id number] [place] [address]- 5585 Jul, [facility] [place] [facility] [address] [id number] [place] [address]- 0344 Jul, [facility] [place] [facility] [address] [id number] [place] [address]- 1787 13 Jul, 2014 [facility] [address] [id number] [place] [address]- 3467 Jul, [facility] [place] [facility] [address] [id number] [place] [address]- 2806 Jul, [facility] [address] [id number] [place] [address]- 8478 Jun, [facility] [place] [facility] [address] [id number] [place] [address]- 1493 Jun, [facility] [address] [id number] [place] [address]- 3209 Jun, [facility] [place] [facility] [address] [id number] [place] [address]- 9021 Jun, [facility] [address] [id number] [place] [address]- 9518 Jun, [facility] [address] [id number] [place] [address]- 6929 Jun, [facility] [place] [facility] [address] [id number] [place] [address]- 8903 Jun, [facility] [address] [id number] [place] [address]- 8183 15 Jun, 2014 [facility] [place] [facility] [address] [id number] [place] [address]- 3706 May, [facility] [place] [facility] [address] [id number] [place] [address]- 6507 May, [facility] [place] [facility] [address] [id number] [place] [address]- 3708 18 May, 2014 [facility] [place] [facility] [address] [id number] [place] [address]- 8276 18 May, 2014 [facility] [place] [facility] [address] [id number] [place] [address]- 2671 May, [facility] [place] [facility] [address] [id number] [place] [address]- 8644 May, [facility] [place] [facility] [address] [id number] [place] [address]- 3489 May, [facility] [place] [facility] [address] [id number] [place] [address]- 4582 May, [facility] [place] [facility] [address] [id number] [place] [address]- 7010 May, [facility] [place] [facility] [address] [id number] [place] [address] May, [facility] [place] [facility] [address] [id number] [place] [address] May, [facility] [place] [facility] [address] [id number] [place] [address] May, [facility] [place] [facility] [address] [id number] [place] [address] Apr, [facility] [place] [facility] [address] [id number] [place] [address] Apr, [facility] [place] [facility] [address] [id number] [place] [address] Apr, [facility] [place] [facility] [address] [id number] [place] [address] Apr, [facility] [place] [facility] [address] [id number] [place] [address] Apr, [facility] [place] [facility] [address] [id number] [place] [address] Apr, [facility] [place] [facility] [address] [id number] [place] [address] Apr, [facility] [place] [facility] [address] [id number] [place] [address] Apr, [facility] [place] [facility] [address] [id number] [place] [address] Apr, [facility] [place] [facility] [address] [id number] [place] [address] Apr, [facility] [place] [facility] [address] [id number] [place] [address] Apr, [facility] [place] [facility] [address] [id number] [place] [address] Apr, [facility] [place] [facility] [address] [id number] [place] [address] Mar, [facility] [place] [facility] [address] [id number] [place] [address] Mar, [facility] [place] [facility] [address] [id number] [place] [address] Mar, [facility] [place] [facility] [address] [id number] [place] [address] Mar, [facility] [place] [facility] [address] [id number] [place] [address] 10 Feb, 2014 [facility] [place] [facility] [address] [id number] [place] [address] 10 Feb, 2014 [facility] [place] [facility] [address] [id number] [place] [address] 05 Feb, 2013 [facility] [place] [facility] [address] [id number] [place] [address] Feb, 2013 [facility] [place] [facility] [address] [id number] [place] [address] Feb, 2013 [facility] [place] [facility] [address] [id number] [place] [address] Feb, [facility] [place] [facility] [address] [id number] [place] [address] Jan, [facility] [place] [facility] [address] [id number] [place] [address] Jan, [facility] [place] [facility] [address] [id number] [place] [address] Jan, [facility] [place] [facility] [address] [id number] [place] [address] Jan, [facility] [place] [facility] [address] [id number] [place] [address] Jan, [facility] [place] [facility] [address] [id number] [place] [address] Jan, [facility] [place] [facility] [address] [id number] [place] [address] Jan, [facility] [place] [facility] [address] [id number] [place] [address] Jan, [facility] [place] [facility] [address] [id number] [place] [address] Jan, [facility] [place] [facility] [address] [id number] [place] [address] Jan, [facility] [place] [facility] [address] [id number] [place] [address] Jan, [facility] [place] [facility] [address] [id number] [place] [address] Jan, [facility] [place] [facility] [address] [id number] [place] [address] 99[address] Jan, [facility] [place] [facility] [address] [id number] [place] [address] 4213 Jan, [facility] [place] [facility] [address] [id number] [place] [address] 1497 Dec, [facility] [place] [facility] [address] [id number] [place] [address] 8833 Dec, [facility] [place] [facility] [address] [id number] [place] [address]- 0739 Dec, [facility] [place] [facility] [address] [id number] [place] [address]- 5347 Dec, [facility] [place] [facility] [address] [id number] [place] [address]34 Nov, [facility] [place] [facility] [address] [id number] [place] [address]- [address] Nov, [facility] [place] [facility] [address] [id number] [place] [address]- 457[address] Nov, [facility] [place] [facility] [address] [id number] [place] [address] 9825 Nov, [facility] [place] [facility] [address] [id number] [place] [address] 3317 Nov, [facility] [place] [facility] [address] [id number] [place] [address] 5743 October, [facility] [place] [facility] [address] [id number] [place] [address]- 5718 October, [facility] [place] [facility] [address] [id number] [place] [address] 4090 October, [facility] [place] [facility] [address] [id number] [place] [address]- 7720 October, [facility] [place] [facility] [address] [id number] [place] [address]- 3045 October, [facility] [place] [facility] [address] [id number] [place] [address]- 0862 October, [facility] [place] [facility] [address] [id number] [place] [address]- 9442 October, [facility] [place] [facility] [address] [id number] [place] [address] 7537 October, [facility] [place] [facility] [address] [id number] [place] [address]- 9572 October, [facility] [place] [facility] [address] [id number] [place] [address]- 1169 October, [facility] [place] [facility] [address] [id number] [place] [address]- 3011 October, [facility] [place] [facility] [address] [id number] [place] [address]- 6106 October, [facility] [place] [facility] [address] [id number] [place] [address]- 7064 October, [facility] [place] [facility] [address] [id number] [place] [address]- 7095 October, [facility] [place] [facility] [address] [id number] [place] [address]- 7823 Sep, [facility] [place] [facility] [address] [id number] [place] [address]- 8997 Sep, [facility] [place] [facility] [address] [id number] [place] [address]- 9949 Sep, [facility] [place] [facility] [address] [id number] [place] [address]- 9371 Sep, [facility] [place] [facility] [address] [id number] [place] [address]- 7706 Sep, [facility] [place] [facility] [address] [id number] [place] [address]- 2520 Sep, [facility] [place] [facility] [address] [id number] [place] [address]- 5092 Sep, [facility] [place] [facility] [address] [id number] [place] [address]- 3474 Sep, [facility] [place] [facility] [address] [id number] [place] [address]- 5089 Sep, [facility] [place] [facility] [address] [id number] [place] [address]- 1590 Sep, [facility] [place] [facility] [address] [id number] [place] [address]- 3787 Sep, [facility] [place] [facility] [address] [id number] [place] [address]- 3410 Sep, [facility] [place] [facility] [address] [id number] [place] [address]- 6923 Sep, [facility] [place] [facility] [address] [id number] [place] [address]- 9125 Sep, [facility] [place] [facility] [address] [id number] [place] [address]- 6604 Sep, [facility] [place] [facility] [address] [id number] [place] [address]- 6817 Aug, [facility] [place] [facility] [address] [id number] [place] [address]- 4404 Aug, [facility] [place] [facility] [address] [id number] [place] [address]- 1778 Aug, [facility] [place] [facility] [address] [id number] [place] [address]- 2644 Aug, [facility] [place] [facility] [address] [id number] [place] [address]- 7148 Jul, [facility] [place] [facility] [address] [id number] [place] [address]- 7263 Jul, [facility] [place] [facility] [address] [id number] [place] [address]- 1073 Jul, [facility] [place] [facility] [address] [id number] [place] [address]- 4684 Jul, [facility] [place] [facility] [address] [id number] [place] [address]- 9671 Jun, [facility] [place] [facility] [address] [id number] [place] [address]- 9588 Jun, [facility] [place] [facility] [address] [id number] [place] [address]- 6582 Jun, [facility] [place] [facility] [address] [id number] [place] [address]- 0201 Jun, [facility] [place] [facility] [address] [id number] [place] [address]- 3115 10 Jun, 2013 [facility] [address] [id number] [place] [address]- 0883 10 Jun, 2013 [facility] [place] [facility] [address] [facility] [id number] [place] [address]- 5511 08 Jun, 2013 [facility] [address] [id number] [place] [address]- 1078 08 Jun, 2013 [facility] [place] [facility] [address] [id number] [place] [address]- 7741 20 May, 2013 [facility] [address] [id number] [place] [address] 20 May, 2013 [facility] [place] [facility] [address] [id number] [place] [address]- 9177 18 May, 2013 [facility] [id number] [address] 1879 18 May, 2013 [facility] [address] [id number] [place] [address]- 9581 17 May, 2013 [facility] [id number] [id number] 17 May, 2013 [facility] [id number] [address] 7140 17 May, 2013 [facility] [place] [facility] [address] [id number] [place] [address]- 0034 17 May, 2013 [facility] [place] [facility] [address] [id number] [place] [address]- 8193 16 May, 2013 [facility] [place] [facility] [address] [id number] [place] [address]- 1053 16 May, 2013 [facility] [place] [facility] [address] [facility] [id number] [place] [address]- 9419 14 May, 2013 [facility] [place] [facility] [address] [facility] [id number] [place] [address]- 2377 14 May, 2013 [facility] [place] [facility] [address] [id number] [place] [address]- 2786 13 May, 2013 [facility] [address] [id number] [place] [address]- 4791 May, [facility] [place] [facility] [address] [id number] [place] [address]- 3811 May, [facility] [address] [id number] [place] [address]- 6585 May, [facility] [place] [facility] [address] [id number] [place] [address]- 8961 May, [facility] [address] [id number] [place] [address]- 2709 May, [facility] [place] [facility] [address] [id number] [place] [address]- 4171 Apr, [facility] [place] [facility] [address] [id number] [place] [address]- 9031 Apr, [facility] [address] [id number] [place] [address]- 3594 Apr, [facility] [place] [facility] [address] [id number] [place] [address]- 9046 Apr, [facility] [address] [id number] [place] [address]- 0515 Aug, [facility] [place] [facility] [address] [id number] [place] [address]- 5193 Aug, [facility] [place] [facility] [address] [id number] [place] [address]- 9609 06 Aug, 2012 [facility] [place] [facility] [address] [id number] [place] [address]- 0563 05 Aug, 2012 [facility] [place] [facility] [address] [id number] [place] [address]- 6239 04 Jul, 2012 [facility] [place] [facility] [address] [id number] [place] [address]- 1068 Jun, [facility] [address] [id number] [place] [address]- 6109 Jun, [facility] [place] [facility] [address] [id number] [place] [address]- 4668 Jun, [facility] [place] [facility] [address] [facility] [id number] [place] [address]- 2998 Jun, [facility] [place] [facility] [address] [id number] [place] [address]- 0958 May, [facility] [place] [facility] [address] [id number] [place] [address]- 8644 May, [facility] [place] [facility] [address] [id number] [place] [address]- 4103 May, [facility] [place] [facility] [address] [id number] [place] [address]- 0442 May, [facility] [place] [facility] [address] [id number] [place] [address]- 7187 May, [facility] [place] [facility] [address] [id number] [place] [address]- 7564 May, [facility] [place] [facility] [address] [id number] [place] [address]- 4231 May, [facility] [place] [facility] [address] [id number], [place] [address]- 2909 Apr, [facility] [place] [facility] [address] [id number], [place] [address]- 7642 Apr, [facility] [place] [facility] [address] [id number] [place] [address]- 1122 Apr, [facility] [place] [facility] [address] [id number] [place] [address]- 4234 Apr, [facility] [place] [facility] [address] [id number] [place] [address]- 8689 Apr, [facility] [place] [facility] [address] [id number] [place] [address]- 0656 Apr, [facility] [place] [facility] [address] [id number] [place] [address]- 6263 Apr, [facility] [place] [facility] [address] [id number] [place] Mar, [facility] [place] [facility] [address] [id number] [place] [address]- 5831 Mar, [facility] [place] [facility] [address] [id number] [place] [address]- 9915 Mar, [facility] [place] [facility] [address] [id number] [place] [address] Mar, [facility] [place] [facility] [address] [id number] [place] [address]- 9879 Mar, [facility] [place] [facility] [address] [id number] [place] [address]- 4707 Mar, [facility] [place] [facility] [address] [id number] [place] [address]- 7876 Mar, [facility] [place] [facility] [address] [id number] [place] [address]- 5341 Mar, [facility] [place] [facility] [address] [facility] [id number] [place] [address]- 8094 Mar, [facility] [place] [facility] [address] [id number] [place] [address]- 7790 Mar, [facility] [place] [facility] [address] [id number], [place] [address]- 9167 Mar, [facility] [place] [facility] [address] [id number] [place] [address]- 5179 Mar, [facility] [place] [facility] [address] [facility] [id number] [place] [address]- 8606 Feb, [facility] [place] [facility] [address] [id number], [place] [address]- 2278 Jan, [facility] [place] [facility] [address] [id number] [place] [address]- 9991 Jan, [facility] [place] [facility] [address] [id number] [place] [address]- 6110 Jan, [facility] [place] [facility] [address] [id number] [place] [address]- 4507 Jan, [facility] [place] [facility] [address] [id number] [place] [address]- 4758 Jan, [facility] [address] [id number] [place] [address]- 3846 Dec, [facility] [place] [facility] [address] [id number] [place] [address]- 8967 Dec, [facility] [address] [id number] [place] [address]- 8836 Nov, [facility] [address] [id number] [place] [address]- 5993 Nov, [facility] [place] [facility] [address] [id number] [place] [address]- 1491 Nov, [facility] [place] [facility] [address] [id number] [place] [address]- 3919 October, [facility] [place] [facility] [address] [id number] [place] [address]- 8251 October, [facility] [place] [facility] [address] [id number] [place] [address]- 1825 October, [facility] [place] [facility] [address] [id number] [place] [address]- 4323 October, [facility] [place] [facility] [address] [id number] [place] [address]- 4950 October, [facility] [place] [facility] [address] [id number] [place] [address]- 4817 October, [facility] [place] [facility] [address] [id number] [place] [address]- 5405 October, [facility] [place] [facility] [address] [id number] [place] [address]- 4462 Sep, [facility] [place] [facility] [address] [id number] [place] [address]- 9110 Sep, [facility] [place] [facility] [address] [id number] [place] [address]- 7935 Sep, [facility] [place] [facility] [address] [id number] [place] [address]- 3784 Sep, [facility] [place] [facility] [address] [id number] [place] [address]- 0683 24 Sep, 2011 [facility] [place] [facility] [address] [id number] [place] [address]- 5311 19 Sep, 2011 [facility] [place] [facility] [address] [id number] [place] [address]- 6306 17 Sep, 2011 [facility] [place] [facility] [address] [id number] [place] [address]- 9614 16 Sep, 2011 [facility] [place] [facility] [address] [id number] [place] [address]- 5922 16 Sep, 2011 [facility] [place] [facility] [address] [id number] [place] [address]- 4438 14 Sep, 2011 [facility] [place] [facility] [address] [id number] [place] [address]- 3177 13 Sep, 2011 [facility] [place] [facility] [address] [id number] [place] [address]- 4753 10 Sep, 2011 [facility] [place] [facility] [address] [id number] [place] [address]- 7074 09 Sep, 2011 [facility] [place] [facility] [address] [id number] [place] [address]- 2359 27 Aug, 2011 [facility] [place] [facility] [address] [id number] [place] [address]- 0168 12 Aug, 2011 [facility] [place] [facility] [address] [id number] [place] [address]- 4026 08 Aug, 2011 [facility] [address] [id number] [place] [address]- 3123 Aug, [facility] [place] [facility] [address] [id number] [place] [address]- 4496 28 Jul, 2011 [facility] [place] [facility] [address] [id number] [place] [address]- 1836 22 Jul, 2011 [facility] [place] [facility] [address] [id number] [place] [address]- 0420 16 Jul, 2011 [facility] [place] [facility] [address] [id number] [place] [address]- 5736 15 Jul, 2011 [facility] [place] [facility] [address] [id number] [place] [address]- 5510 14 Jul, 2011 [facility] [place] [facility] [address] [id number] [place] [address]- 4994 10 Jul, 2011 [facility] [place] [facility] [address] [id number] [place] [address]- 8326 Jun, [facility] [place] [facility] [address] [id number] [place] [address]- 2936 Jun, [facility] [place] [facility] [address] [id number] [place] [address]- 9996 Jun, [facility] [place] [facility] [address] [id number] [place] [address]- 6660 Jun, [facility] [place] [facility] [address] [id number] [place] [address]- 0303 Jun, [facility] [place] [facility] [address] [id number] [place] [address]- 6016 May, [facility] [place] [facility] [address] [id number] [place] [address]- 3576 May, [facility] [place] [facility] [address] [id number] [place] [address]- 3506 14 May, 2011 [facility] [place] [facility] [address] [id number] [place] [address]- 2868 14 May, 2011 [facility] [place] [facility] [address] [id number] [place] [address]- 5584 12 May, 2011 [facility] [place] [facility] [address] [id number] [place] [address]606 07 May, 2011 [facility] [place] [facility] [address] [id number] [place] [address]- 2436 05 May, 2011 [facility] [place] [facility] [address] [id number] [place] [address]- 2119 15 Apr, 2011 [facility] [place] [facility] [address] [id number] [place] [address]- 7788 15 Apr, 2011 [facility] [place] [facility] [address] [id number] [place] [address]- 1627 Apr, [facility] [place] [facility] [address] [id number] [place] [address]- 6781 Apr, [facility] [place] [facility] [address] [id number] [place] [address]- 5252 Apr, [facility] [place] [facility] [address] [id number] [place] [address]- 4929 Apr, [facility] [place] [facility] [address] [id number], [place] [address]- 9545 Mar, [facility] [place] [facility] [address] [id number], [place] [address]- 9410 Mar, [facility] [place] [facility] [address] [id number] [place] [address]- 9747 Mar, [facility] [place] [facility] [address] [id number], [place] [address]- 0775 Mar, [facility] [place] [facility] [address] [id number], [place] [address]- 7946 Jan, [facility] [place] [facility] [address] [id number] [place] [address]- 5301 19 Dec, 2010 [facility] [address] [id number] [place] [address]- 5306 13 Dec, 2010 [facility] [place] [facility] [address] [id number] [place] [address] 2546 October, [facility] [address] [id number] [place] [address]- 6155 Sep, [facility] [place] [facility] [address] [id number] [place] [address] 2540 14 Sep, 2010 [facility] [address] [id number] [place] [address]- 0[address] 17 Jul, 2010 [facility] [address] [id number] [place] [address] 16 Jul, 2010 [facility] [address] [id number] [place] [address] May, [facility] [address] [id number] [place] [address] May, [facility] [address] [id number] [place] [address] May, [facility] [address] [id number] [place] [address] May, [facility] [address] [id number] [place] [address] Apr, [facility] [address] [id number] [place] [address] Apr, [facility] [place] [facility] [address] [id number] [place] [address] Apr, [facility] [place] [facility] [address] [id number] [place] [address] [address] Apr, [facility] [address] [id number] [place] [address] [address] Apr, [facility] [place] [facility] [address] [id number] [place] [address] Mar, [facility] [place] [facility] [address] [id number] [place] [address] 14 Mar, 2010 [facility] [place] [facility] [address] [id number] [place] [address] 13 Mar, 2010 [facility] [place] [facility] [address] [id number] [place] [address] Mar, [facility] [place] [facility] [address] [id number] [place] [address] Jan, [facility] [place] [facility] [address] [id number] [place] [address] 15 Dec, 2009 [facility] [place] [facility] [address] [facility] [id number] [place] [address] Sep, [facility] [place] [facility] [address] [id number], [place] [address] May, [facility] [place] [facility] [address] [id number], [place] [address] May, [facility] [place] [facility] [address] [facility] [id number], [place] [address] May, [facility] [place] [facility] [address] [facility] [id number], [place] [address] Apr, [facility] [place] [facility] [address] [id number], [place] [address] Apr, [facility] [place] [facility] [address] [id number], [place] [address] Apr, [facility] [place] [facility] [address] [id number], [place] [address] Apr, [facility] [place] [facility] [address] [facility] [id number], [place] [address] Apr, [facility] [place] [facility] [address] [id number], [place] [address] Mar, [facility] [address] [facility] [id number] [place] [address] Mar, [facility] [address] [facility] [id number], [place] [address] Jul, IMMUNIZATIONS No Known Immunizations SOCIAL HISTORY [facility]- Abd pain 03/07/2017 Hospitalization History [facility]- Abd pain 03/14/2017 Hospitalization History [facility]- No bowel movement, rash 04/13/2017 Hospitalization History [facility]- Abd pain r/t kidney surgery on 04/17/2017 Hospitalization History [facility]- Abd pain r/t kidney surgery on 04/18/2017 Hospitalization History [facility]- Lower abd pain 04/30/2017 Hospitalization History [facility]- Cannot urinate 05/30/2017 Hospitalization History [facility]- Pancreatitis Sx 06/29/2017 Hospitalization History [facility]- Stomach pain 07/22/2017 Hospitalization History [facility]- Left side pain 08/12/2017 Hospitalization History [facility]- Incision site infection 08/30/2017 Hospitalization History [facility]- Post Op Seroma/Hematoma Left Abdomen. Discharged 09/04/17- Dr Daniel 09/02/2017 Hospitalization History [facility]- Right shoulder and back pain 2017 Hospitalization History [facility]- Shoulder/Back pain 11/11/2017 Hospitalization History [facility]- Right shoulder blade pain 12/04/2017 Hospitalization History [facility]- C-Diff 12/13/2017 Hospitalization History C diff et MRSA 12/27/2017
[2018-03-01] MEDS ORDERED: NS IV 1000 ML 1,000 ML IV SCH (23:31)
[2018-03-01 23:44] LABS: BASOPHILS % (AUTO) 0 % (0-10); EOSINOPHILS # (AUTO) 0.5 10^3/uL (0.0-0.3); EOSINOPHILS % (AUTO) 4 % (0-10); HEMATOCRIT 36 % (35-52); HEMOGLOBIN 11.7 G/DL (11.5-16.0); LYMPHOCYTES % (AUTO) 26 % (12-44); MEAN CORPUSCULAR HEMOGLOBIN 28 PG (25-34); MEAN CORPUSCULAR HGB CONC 33 G/DL (32-36); MEAN CORPUSCULAR VOLUME 86 FL (80-99); MONOCYTES # (AUTO) 0.6 X 10^3 (0.0-1.0); MONOCYTES % (AUTO) 5 % (0-12); NEUTROPHILS # (AUTO) 7.4 X 10^3 (1.8-7.8); NEUTROPHILS % (AUTO) 64 % (42-75); PLATELET COUNT 346 10^3/uL (130-400); RED BLOOD COUNT 4.15 10^6/uL (4.35-5.85); RED CELL DISTRIBUTION WIDTH 13.8 % (10.0-14.5); WHITE BLOOD COUNT 11.5 10^3/uL (4.3-11.0)
[2018-03-01 23:57] LABS: ALANINE AMINOTRANSFERASE 24 U/L (0-55); ALKALINE PHOSPHATASE 66 U/L (40-136); BILIRUBIN,TOTAL 0.3 MG/DL (0.1-1.0); BUN/CREATININE RATIO 14; CALCIUM 9.7 MG/DL (8.5-10.1); CARBON DIOXIDE 23 MMOL/L (21-32); CHLORIDE 104 MMOL/L (98-107); CREATININE SERUM 1.02 MG/DL (0.60-1.30); GFR ESTIMATED > 60; POTASSIUM 3.8 MMOL/L (3.6-5.0); SODIUM 139 MMOL/L (135-145); TOTAL PROTEIN 7.5 GM/DL (6.4-8.2)
[2018-03-02 00:20] LABS: GLUCOSE 95 MG/DL (70-105)
--- NOTE | 2018-03-02 00:49 | ED Abdominal Pain ---
General Chief Complaint: General Problems/Pain Stated Complaint: DRAIN TUBE / LEG SWOLLEN Nursing Triage Note: LEFT DRAIN PAIN. PT STATES SHE HAS LEFT LEG SWELLING WELL. PT WAS HERE THIS MORNING FOR THE SAME ISSUES. Sepsis Screen: No Definite Risk Source of Information: Patient Exam Limitations: No Limitations History of Present Illness Date Seen by Provider: Mar 01, 2018 Time Seen by Provider: 23:30 Initial Comments Patient presents to ER by private conveyance with chief complaint of left lower quadrant abdominal pain second time in 24 hours. Today she feels like she is having a fever in her abdomen. She also states that her left leg is bigger than her right leg and having some swelling. She says this is new since yesterday. She denies any chest pain shortness of breath. She does have hydrocodone still available to her and she's been using it. She's having less drainage out of her MICHAEL drain in yesterday. She called the general surgeon and he told her that if she was concerned she become the ER and be evaluated. Allergies and Home Medications Allergies Coded Allergies: fentanyl (Verified Allergy, Unknown, 02/13/18) meperidine (Verified Allergy, Unknown, 08/20/17) penicillin G (Verified Allergy, Unknown, 08/20/17) vancomycin (Unverified Adverse Reaction, Intermediate, severe itching, ) Home Medications Cyanocobalamin 1,000 Mcg/Ml Inj, 1,000 MCG IJ MONTHLY, (Reported) Estradiol 2 Mg Tablet, 2 MG PO HS, (Reported) Fluoxetine HCl 40 Mg Capsule, 40 MG PO HS, (Reported) Hydrocodone/Acetaminophen 1 Each Tablet, 1 TAB PO Q6H Prescribed by: LINDSEY MARROQUIN on 02/13/18 1335 Hydrocortisone 30 Gm Cream.appl, TOP DAILY PRN for INFLAMMATION, (Reported) Lipase/Protease/Amylase 1 Each Tablet, PO UD, (Reported) TAKE 3 TABLETS WITH MEALS AND 2 TABLETS WITH SNACKS (HAS NOT STARTED TAKING DUE TO NOT BEING ABLE TO KEEP ANYTHING DOWN BUT DID PIE FILLING MIXER THE SCRIPT) Ondansetron 8 Mg Tab.rapdis, 8 MG PO BID, (Reported) Promethazine HCl 25 Mg Tablet, 25 MG PO Q6H PRN for NAUSEA/VOMITING-2ND LINE, ( Reported) Ropinirole HCl 4 Mg Tablet, 4 MG PO HS, (Reported) Patient Home Medication List Home Medication List Reviewed: Yes Review of Systems Review of Systems Constitutional: No chills, No diaphoresis, No fever, No malaise EENTM: No Blurred Vision, No Double Vision Respiratory: Denies Cough, Denies Shortness of Air Cardiovascular: Denies Chest Pain, Denies Edema Gastrointestinal: Abdominal Pain; Denies Constipated, Denies Diarrhea, Denies Nausea, Denies Vomiting Genitourinary: Denies Discharge, Denies Drainage Musculoskeletal: No back pain, No joint pain Skin: see HPI; No pruritus, No rash Past Rxiqtkj-Pdtypg-Bwniyp Hx Patient Social History Alcohol Use: Denies Use Recreational Drug Use: No Type Used: Cigarettes 2nd Hand Smoke Exposure: No Recent Foreign Travel: No Contact w/Someone Who Travel: No Recent Infectious Disease Expo: No Recent Hopitalizations: Yes Physical Abuse: No Sexual Abuse: No Immunizations Up To Date Tetanus Booster (TDap): Unknown PED Vaccines UTD: No Date of Pneumonia Vaccine: May 17, 2012 Date of Influenza Vaccine: Jul 03, 2012 Seasonal Allergies Seasonal Allergies: Yes (MILD) Past Medical History Surgeries: Yes (R KNEE SCOPE X5 L X2, NASAL FX, EGD/COLONOSCOPY, COCCYX REMOVAL , HERNIA) Abdominal, Adenoidectomy, Appendectomy, Gallbladder, 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, Nephrectomy, Orthopedic, Tonsillectomy Respiratory: Yes (HASNT USED INHALER IN > 4 YRS) Asthma Currently Using CPAP: No Currently Using BIPAP: No Cardiac: No Neurological: Yes (RESTLESS LEG SYNDROME) Headaches /Migraines 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: No (HX ENDOMETRIOSIS ) 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 Sexually Transmitted Disease: No HIV/AIDS: No Genitourinary: Yes (L KIDNEY REMOVED FOR TUMOR;) UTI-Chronic Gastrointestinal: Yes (ENLARGED LIVER/FATTY LIVER) Liver Disease/Jaundice, Pancreatitis, Polyps Musculoskeletal: Yes (COCCYX-REPAIRED, MAY HAVE SIGNS OF ARTHRITIS) Chronic Back Pain Endocrine: Yes (CHRONIC PANCREATITIS) HEENT: No Loss of Vision: Denies Hearing Impairment: Denies Cancer: Yes Kidney Did You Recieve Any Treatments: Yes What Type of Treatment Did You: Surgical Intervention Psychosocial: Yes Anxiety, Depression Integumentary: No Herpes Blood Disorders: No Adverse Reaction/Blood Tranf: No (N/A) Family Medical History Cardiovascular disease 19 FATHER Completed stroke 19 FATHER Diabetes mellitus 19 FATHER Hypercholesterolemia 19 FATHER 19 MOTHER Hypertension 19 FATHER 19 MOTHER Neoplasm 19 MOTHER Psychosocial problem 19 FATHER 19 MOTHER Cancer, Diabetes, Hypertension Physical Exam Vital Signs Vital Signs - First Documented 03/01/18 23:25 Temp 98.8 Pulse 97 Resp 14 B/P (MAP) 152/74 (100) Pulse Ox 96 Capillary Refill : Less Than 3 Seconds Height/Weight/BMI Height: 5'2.00" Weight: 216lbs. 2.0oz. 97.820751oe; 45.8 BMI Method:Stated General Appearance: WD/WN, no apparent distress HEENT: PERRL/EOMI, normal ENT inspection, pharynx normal Neck: non-tender, full range of motion, normal inspection Respiratory: chest non-tender, normal breath sounds, no respiratory distress, no accessory muscle use Cardiovascular: normal peripheral pulses, regular rate, rhythm Gastrointestinal: normal bowel sounds, soft, tenderness (around the site of the drain and bing with mild 1 cm rim of erythema no induration, fluctuance or discharge noted.) Extremities: normal range of motion, non-tender, normal inspection, no pedal edema, no calf tenderness, normal capillary refill, other (left calf 41.5 cm right calf 43 cm.) Progress/Results/Core Measures Results/Orders Lab Results Laboratory Tests Test 03/01/18 23:30 Range/Units White Blood Count 11.5 H 4.3-11.0 10^3/uL Red Blood Count 4.15 L 4.35-5.85 10^6/uL Hemoglobin 11.7 11.5-16.0 G/DL Hematocrit 36 35-52 % Mean Corpuscular Volume 86 80-99 FL Mean Corpuscular Hemoglobin 28 25-34 PG Mean Corpuscular Hemoglobin Concent 33 32-36 G/DL Red Cell Distribution Width 13.8 10.0-14.5 % Platelet Count 346 130-400 10^3/uL Mean Platelet Volume 9.0 7.4-10.4 FL Neutrophils (%) (Auto) 64 42-75 % Lymphocytes (%) (Auto) 26 12-44 % Monocytes (%) (Auto) 5 0-12 % Eosinophils (%) (Auto) 4 0-10 % Basophils (%) (Auto) 0 0-10 % Neutrophils # (Auto) 7.4 1.8-7.8 X 10^3 Lymphocytes # (Auto) 3.0 1.0-4.0 X 10^3 Monocytes # (Auto) 0.6 0.0-1.0 X 10^3 Eosinophils # (Auto) 0.5 H 0.0-0.3 10^3/uL Basophils # (Auto) 0.0 0.0-0.1 10^3/uL Sodium Level 139 135-145 MMOL/L Potassium Level 3.8 3.6-5.0 MMOL/L Chloride Level 104 98-107 MMOL/L Carbon Dioxide Level 23 21-32 MMOL/L Anion Gap 12 5-14 MMOL/L Blood Urea Nitrogen 14 7-18 MG/DL Creatinine 1.02 0.60-1.30 MG/DL Estimat Glomerular Filtration Rate > 60 BUN/Creatinine Ratio 14 Glucose Level 95 70-105 MG/DL Calcium Level 9.7 8.5-10.1 MG/DL Corrected Calcium 9.7 8.5-10.1 MG/DL Total Bilirubin 0.3 0.1-1.0 MG/DL Aspartate Amino Transf (AST/SGOT) 32 5-34 U/L Alanine Aminotransferase (ALT/SGPT) 24 0-55 U/L Alkaline Phosphatase 66 40-136 U/L Total Protein 7.5 6.4-8.2 GM/DL Albumin 4.0 3.2-4.5 GM/DL My Orders Orders - MAKAYLA HAWKINS Saline Lock/Iv-Start (03/01/18 23:31) Cbc With Automated Diff (03/01/18 23:31) Comprehensive Metabolic Panel (03/01/18 23:31) Saline Lock/Iv-Start (03/01/18 23:31) Ns Iv 1000 Ml (Sodium Chloride 0.9%) (03/01/18 23:31) Ct Abdomen/Pelvis Wo (03/02/18 00:01) Vital Signs/I&O 03/01/18 23:25 Temp 98.8 Pulse 97 Resp 14 B/P (MAP) 152/74 (100) Pulse Ox 96 Blood Pressure Mean: 100 Progress Progress Note : Time: 00:51 Progress Note We measured the patient's legs and the left calf greatest diameter is 41.5 cm and the right leg greatest diameter is 43 cm. Her left leg is smaller than her right leg contrary to her claims. She is not having any tenderness in her calf. We will obtain labs that are unremarkable and a CT that shows interval improvement from the last time. We are going to have her stay the course and follow-up with her surgeon next week. She's got normal vital signs and has been easily distracted with her cell phone throughout her stay in the ER. Departure Impression Primary Impression: Rodrick winston drain site pain Disposition: HOME, SELF-CARE Condition: Stable Departure-Patient Inst. Decision time for Depature: 00:53 Referrals: CARMEN GIBBS MD (PCP/Family) Primary Care Physician Patient Instructions: Rodrick-Winston Drain Add. Discharge Instructions: Keep the site clean with regular soap and water. Follow-up with your primary care doctor or surgeon later this week if you have questions. Return to the ER if you're having fevers above 102.5F. All discharge instructions reviewed with patient and/or family. Voiced understanding. Copy Copies To 1: EMIL ROLON DO; LINDSEY MARROQUIN TITUS J Mar 02, 2018 00:49
[2018-03-02 01:02] VITALS: BP 110/54
--- NOTE | 2018-03-02 07:44 | Diagnostic Imaging Report ---
PROCEDURE: CT abdomen and pelvis without contrast. TECHNIQUE: Multiple contiguous axial images were obtained through the abdomen and pelvis without the use of intravenous contrast. INDICATION: Left nephrectomy, pain and redness to the left drain site The recent CT abdomen/pelvis exam of 02/24/2018 noted a prior left nephrectomy and probably prominent subcutaneous stranding in the left lateral anterior abdominal wall. There is also a catheter in place in this area. Those findings are again evident and not significantly changed. This appearance does suggest edema/inflammation. However, There is still no sign of a mass or of an abscess in this area. There are segments of the small bowel in close proximity to this portion of the anterior abdominal wall but there is no incarceration or obstruction of the bowel. There is no acute abnormality of the intra-abdominal or intrapelvic contents. The subtle area of altered density within the right lobe of the liver seen on the previous study is difficult to appreciate on this noncontrast study. The liver appears fairly homogeneous. The spleen, pancreas, adrenals, right kidney, aorta and inferior vena cava are unremarkable for an acute abnormality. The gallbladder is also surgically absent. The stomach is not well-distended and consequently difficult to assess. There is no pelvic mass or free fluid collection noted. The uterus is not well-visualized and is most likely surgically absent as well. The urinary bladder is grossly unremarkable. There are also surgical clips about the appendix. The bone windows show no sign of a fracture or of a destructive lesion. The previous exam did note a 2 CM left lower lobe pulmonary nodule adjacent to the left hemidiaphragm. That finding is again visualized and does not seem to have changed significantly. I do feel that this is most likely a benign process. Even so, I would concur with the recommendation of the previous exam that PET/CT be performed for further evaluation. There is no obvious breast mass. The bone windows show no sign of a fracture or of a destructive lesion. IMPRESSION: 1. The edema/inflammation of the subcutaneous fat of the left flank seen on the previous study is again evident and not adversely changed. There is no sign of an abscess in this area. 2. There is no acute abnormality of the abdomen or pelvis. 3. The left kidney, the gallbladder, the appendix and uterus are surgically absent. 4. There is a persistent nodular density contiguous with the left hemidiaphragm. This finding is most likely benign but the possibility that this is neoplastic in nature cannot be entirely excluded. Recommendations as above. Dictated by: Dictated on workstation # [id number]
== END 2018-03-02 01:02 | disposition home or self-care (01) ==
LOC: EDUNIT# 21:23 → ER 21:25
DX: G89.18 Other acute postprocedural pain (principal); R10.32 Left lower quadrant pain; J45.909 Unspecified asthma, uncomplicated; G43.909 Migraine, unspecified, not intractable, without status migrainosus; G25.81 Restless legs syndrome; F41.9 Anxiety disorder, unspecified; F32.9 Major depressive disorder, single episode, unspecified; Z86.19 Personal history of other infectious and parasitic diseases; Z87.448 Personal history of other diseases of urinary system; Z88.8 Allergy status to other drugs, medicaments and biological substances; Z82.49 Family history of ischemic heart disease and other diseases of the circulatory system; Z85.528 Personal history of other malignant neoplasm of kidney; Z98.890 Other specified postprocedural states; Z86.010 Personal history of colon polyps; Z88.0 Allergy status to penicillin; Z87.440 Personal history of urinary (tract) infections; Z79.52 Long term (current) use of systemic steroids; Z87.19 Personal history of other diseases of the digestive system; Z90.89 Acquired absence of other organs; Z90.710 Acquired absence of both cervix and uterus; Z90.5 Acquired absence of kidney
CPT/HCPCS: 36415; 74176; 80053; 85025; 96360; 99283

== ENCOUNTER → 2018-03-12 | Outpatient (CLI) | payer MEDICARE, MEDICAID ==
--- NOTE | 2018-03-12 11:35 | Diagnostic Imaging Report ---
PROCEDURE: US venous upper extremity left. TECHNIQUE: Multiple realtime grayscale images were obtained of left upper extremity in various projections. Duplex Doppler and and color Doppler images were also obtained. INDICATION: Arm pain The previous left upper extremity venous Doppler exam performed on 12/28/2017 noted thrombus within the cephalic vein about the patient's PICC line. The remainder of the deep venous system is unremarkable for a deep venous thrombus formation. On this exam there is good blood flow in the cephalic vein. It appears that the PICC line has been removed. The remainder of the deep venous system shows good blood flow and compressibility. There is no sign of a deep venous thrombosis. IMPRESSION: There is no evidence for a deep venous thrombosis. In particular, there is no sign of residual thrombus within the cephalic vein. Dictated by: Dictated on workstation # [id number]
== END ==
LOC: RAD 10:04
PROVIDERS: ATTEND Family Medicine
DX: M79.622 Pain in left upper arm (principal)

== ENCOUNTER 2018-04-29 09:29 | Emergency (ER) | payer MEDICARE, MEDICAID ==
[~2018-04-29] VITALS: Ht 160 cm; Wt 108.9 kg
[~2018-04-29 09:29] MED LIST changes: +METR-197 PO; -METR500T21 PO; -POLY17PO23; +POLY17PO31; -POLY255P PO; +POLY255P16 PO
--- OUTSIDE RECORDS SUMMARY | 2018-04-29 10:18 | XMS REPORT | Clinical Summary ---
Author Author [facility] Organization [facility] Address Unknown Phone Unavailable Care Team Providers Care Supplemental Nurse Name Role Phone Michael Sutton MD Unavailable [...] in the Health Information Management department at [phone] for further assistance in locating additional records.[facility] Allergies Active Allergy Reactions Severity Noted Date Comments Meperidine (Pf) ITCHING Low 09/20/2011 Fentanyl ITCHING Low 09/20/2011 Penicillins UNKNOWN 09/20/2011 Vancomycin ITCHING, REDNESS Low 04/09/2018 Current Medications Prescription Sig. Disp. Refills Start [...] tongue to disolve. Chronic nausea, Chronic vomiting [id number]-qfmvakf Take 3 tablets by mouth 300 tablet [...] 18 mcg/mL DAYS injectionIndications: Medication monitoring encounter prochlorperazine maleate Take one-half tablet by 30 tablet 1 04/09/20 Active (COMPAZINE) 10 mg tablet mouth every 6 hours as 18 needed for Nausea or Vomiting. omeprazole DR(+) Take one capsule by mouth 30 capsule 5 04/09/20 Active (PRILOSEC) 40 mg capsule daily before breakfast. 18 Active Problems Problem Noted Date Other chronic pancreatitis (HCC) 01/14/2018 Overview: Added automatically from request for surgery [id number] Intractable vomiting with nausea 01/14/2018 Overview: Added automatically from request for surgery [id number] Left renal mass 04/10/2017 Renal mass 03/21/2017 Overview: Added automatically from request for surgery [id number] 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 06/24/2013 Overview: S/P HOLLAND, BSO 11/27 Depression 06/24/2013 S/P cholecystectomy 06/24/2013 Overview: 2007 S/P appendectomy 06/24/2013 Overview: November 2012 Pancreatitis 10/23/2011 Encounters Date Type Specialty Care Team Description 04/09/2018 Office Visit Gastroenterology Randy Nunez MD Vomiting , intractability of vomiting not specified, presence of nausea not specified, unspecified vomiting type (Primary Dx); Chronic pancreatitis, unspecified pancreatitis type (HCC) 03/27/2018 Telephone Gastroenterology Randy Nunez MD Blood in stools 03/05/2018 Ancillary Radiology Outpatient, Radiologist Diagnosis unknown Orders 03/02/2018 Hospital Radiology Encounter 02/20/2018 Refill Gastroenterology Randy Nunez MD Medication monitoring encounter 02/19/2018 Hospital Radiology Jessica Valera ARNP Encounter 02/04/2018 Procedure Pass Radiology 02/04/2018 Telephone Gastroenterology Jessica Valera ARNP Results; Follow-up Phone Call 01/31/2018 [facility] Hal Sparks MD Other chronic Encounter pancreatitis (HCC) 01/31/2018 Anesthesia Catherine Waters ECOLOGICAL ECONOMIST Event 01/31/2018 Procedure Pass 01/31/2018 Surgery Hal Sparks MD ESOPHAGOGASTRODUODENOSCOP Y ENDOSCOPIC ULTRASOUND from Last 3 Months Family History Medical [...] Vital Sign Reading Time Taken Blood Pressure 122/80 04/09/2018 9:45 AM CDT Pulse 72 04/09/2018 9:45 AM CDT Temperature 36.5 C (97.7 F) 04/09/2018 9:45 AM CDT Respiratory Rate 16 04/09/2018 9:45 AM CDT Oxygen Saturation 97% 01/31/2018 2:26 PM CDT Inhaled Oxygen - - Concentration Weight 118.5 kg (261 lb 4.8 oz) 04/09/2018 9:45 AM CDT Height 160 cm (5' 3") 04/09/2018 9:45 AM CDT Body Mass Index 46.29 04/09/2018 9:45 AM CDT Plan of Treatment Date Type Specialty Care Team Description 12/09/2017 Procedure Pass Oncology 12/09/2017 Procedure Pass Oncology Health Maintenance Due Date Last Done Comments PHYSICAL (COMPREHENSIVE) 1991 EXAM PERTUSSIS VACCINE 1995 HIV SCREENING 1999 TETANUS VACCINE 2001 CERVICAL CANCER SCREENING 2014 INFLUENZA VACCINE 01/15/2018 Procedures Procedure Name Priority Date/Time Associated Diagnosis Comments CT ABD/PEL EXTERNAL Routine 03/02/2018 Diagnosis unknown Results for this IMAGING 12:00 AM CDT procedure are in the results section. MRI MRCP Routine 02/19/2018 Chronic pancreatitis, Results [...] section. from Last 3 Months Results * CT ABD/PEL EXTERNAL IMAGING (03/02/2018) Narrative Performed At This order has been auto finalized and does not contain a result. * MRI MRCP (02/19/2018 7:44 AM) Impressions [...] on 02/19/2018 8:15 AM. Narrative Performed At [facility] RAD RESULTS Clinical Indication:Female, 32 years [...] AM. Performing Organization Address City/State/Zipcode Phone Number RAD RESULTS * TELEMETRY STRIPS-SCAN (02/03/2018 12:38 PM) Narrative Performed At Ordered by an unspecified provider. * ENDOSCOPIC ULTRASOUND REPORT (01/31/2018 12:46 PM) Provation Report Patient Name: Regulo WILKS OTHER RESULTS Procedure Date: 01/31/2018 12:46 PM CSN: [id number] Date of : 1985 Gender: Female Attending Physician: Hal Sparks MD Procedure: Upper EUS Indications: Acute recurrent pancreatitis Providers: Hal Sparks MD (Doctor), Jake Crocker MD (Fellow), Delilah Jarquin RN (Nurse), Jose Mcclure (Marble Setter Helper) Referring Physician: Randy Nunez MD, Jessica Valera [...] 45 seconds Procedure Code(s): --- Professional --- 93012, Esophagogastroduodenoscopy, flexible, transoral; with endoscopic ultrasound examination limited to the esophagus, stomach or duodenum, and adjacent structures CPT copyright 2016 [employer]. All rights reserved. The codes documented in this report are preliminary and upon travel registered nurse nicu review may be revised to meet current compliance requirements. Attending Participation: I personally performed the entire procedure. Hal Sparks MD 01/31/2018 2:08:18 PM The attending physician has electronically signed and finalized this document. Jake Crocker MD Number of Addenda: 0 Note Initiated On: 01/31/2018 12:46 PM Performing Organization Address City/State/Zipcode Phone Number [facility] OTHER RESULTS from Last 3 Months
--- OUTSIDE RECORDS SUMMARY | 2018-04-29 10:19 | XMS REPORT | Encounter Summary ---
Author Author [facility] Organization [facility] Address Unknown Phone Unavailable Care Team Providers Care Stationary Equipment Mechanic Name Role Phone Michael Sutton MD Unavailable Unavailable Mary Whittington MD PCP Jessica Valera Unavailable Maggie Puente Unavailable Unavailable Robert-Mary Moore APRN Unavailable Bam Ritter MD Unavailable Radha Bo LPN Unavailable Unavailable Jose Sanchez MD Unavailable Encounter Details Date Type Department Care Team Description 01/31/2018 Procedure Pass Gastrointenstinal Endoscopy [address] [place] [address] Social History Tobacco Use Types [...]
--- OUTSIDE RECORDS SUMMARY | 2018-04-29 10:19 | XMS REPORT | Encounter Summary ---
Author Author [facility] Organization [facility] Address Unknown Phone Unavailable Care Team Providers Care Conventional Underwriter Name Role Phone Michael Sutton MD Unavailable Unavailable Mary Whittington MD PCP Jessica Valera GOLF COURSE EQUIPMENT OPERATOR Unavailable Maggie Puente Unavailable Unavailable Mary Telles ERGONOMIC SPECIALIST Unavailable Bam Ritter MD Unavailable Radha Bo SAFEMAKER Unavailable Unavailable Jose Sanchez MD Unavailable Reason for Referral * Radiology Services (Routine) Status Reason Specialty Diagnoses / Referred By Referred To Procedures Contact Contact No Auth Needed Radiology Diagnoses Moraima, Jessica, Bhb Mri Chronic GOLF COURSE EQUIPMENT OPERATOR [address] pancreatitis, [address] [place], [place] pancreatitis [place] [address] [id number] type (HCC) [place], [place] Phone: [phone] rocedures Phone: MRI MRCP [phone] Reason for Visit * Reason Comments Results Follow-up Phone Call Encounter Details Date Type Department Care Team Description 02/04/2018 Telephone [facility] UtCharo weavera, GOLF COURSE EQUIPMENT OPERATOR Results; Follow-up Phone Physicians [address] Call Ortho and Medical [place] [address] [place] [address] [phone] [place] [address] Social History Tobacco Use Types [...] states she is currently in ER at [facility] d/t abd pain. Spoke to ER [...]
--- OUTSIDE RECORDS SUMMARY | 2018-04-29 10:19 | XMS REPORT | Encounter Summary ---
Author Author [facility] Organization [facility] Address Unknown Phone Unavailable Care Team Providers Care Optical Dispenser Name Role Phone Michael Sutton MD Unavailable Unavailable Mary Whittington MD PCP Jessica Valera Unavailable Maggie Puente Unavailable Unavailable Mary Telles APRN Unavailable Bam Ritter MD Unavailable Radha Bo LPN Unavailable Unavailable Jose Sanchez MD Unavailable Reason for Visit * Reason Comments Medication Refill Encounter Details Date Type Department Care Team Description 02/20/2018 Refill [facility] Randy Nunez MD Medication monitoring Physicians - Internal [address] [facility] encounter Medicine [place] [address] [facility] [address] [address] [facility] [phone] [place] [address] [phone] Social History Tobacco Use Types Packs/Day Years [...]
--- OUTSIDE RECORDS SUMMARY | 2018-04-29 10:19 | XMS REPORT | Encounter Summary ---
Author Author [facility] Organization [facility] Address Unknown Phone Unavailable Care Team Providers Care Forging Dies Final Finisher Name Role Phone Michael Sutton MD Unavailable [...] nausea, unspecified vomiting type [R11.2] P rocedures OR ESOPHAGOGASTRODU ODENOSCOPY US SCOPE W/ADJ STRXRS ENDOSCOPIC ULTRASOUND REPORT ESOPHAGOGASTRODU ODENOSCOPY ENDOSCOPIC ULTRASOUND Encounter Details Date Type Department Care Team Description 01/31/2018 Surgery Gastrointenstinal Hal Sparks MD ESOPHAGOGASTRODUODENOSCOP Endoscopy [address] ENDOSCOPIC ULTRASOUND [address] [place] [address] [place] [address] [place] [address] [phone] Social History Tobacco Use Types Packs/Day Years [...] After 5:00 pm, holidays or weekends call [phone] and ask for the GI Doctor instructional services librarian. in this encounter Medications at Time of [...] to three times a day as needed. [id number] Take 3 tablets by mouth 300 tablet [...] RESULTS Procedure Date: 01/31/2018 12:46 PM CSN: [id number] Date of : 1985 Gender: Female Attending Physician: Hal Sparks MD Procedure: Upper EUS Indications: Acute recurrent pancreatitis Providers: Hal Sparks MD (Doctor), Jake Crocker MD (Fellow), Delilah Jarquin RN (Nurse), Jose Mcclure (Chief Administrative Officer) Referring Physician: Randy Nunez MD, Jessica Valera [...] 45 seconds Procedure Code(s): --- Professional --- 75603, Esophagogastroduodenoscopy, flexible, transoral; with endoscopic ultrasound examination limited to the esophagus, stomach or duodenum, and adjacent structures CPT copyright 2016 [employer]. All rights reserved. The codes documented in this report are preliminary and upon medical record coder review may be revised to meet [...]
--- OUTSIDE RECORDS SUMMARY | 2018-04-29 10:19 | XMS REPORT | Encounter Summary ---
Author Author [facility] Organization [facility] Address Unknown Phone Unavailable Care Team Providers Care Accounting Administrative Assistant Name Role Phone Michael Sutton MD Unavailable Unavailable Mary Whittington MD PCP Jessica Valera Unavailable Maggie Puente Unavailable Unavailable Mary Telles APRN Unavailable Bam Ritter MD Unavailable Radha Bo LPN Unavailable Unavailable Jose Sanchez MD Unavailable Reason for Visit * Reason Comments Blood in stools Encounter Details Date Type Department Care Team Description 03/27/2018 Telephone [facility] Randy Nunez MD Blood in stools Physicians - Internal [address] [facility] Medicine [place] [address] [place] [address] [address] [facility] [phone] [place] [address] [phone] Social History Tobacco Use Types Packs/Day Years [...] Telephone Encounter - Arleen Leone RN - 03/27/2018 4:16 PM CDT Patient calling today to report blood in stool. Patient discussed with Dr. Nunez who is recommending local evaluation in ED/PCP. Patient states has call into Dr. Whittington's office. Aware of recommendation to see evaluation today. in this encounter Plan of Treatment Date Type Specialty Care Team Description 12/09/2017 Procedure Pass Oncology 12/09/2017 Procedure Pass Oncology as of this encounter Visit Diagnoses Not on filein this encounter
--- OUTSIDE RECORDS SUMMARY | 2018-04-29 10:19 | XMS REPORT | Encounter Summary ---
Author Author [facility] Organization [facility] Address Unknown Phone Unavailable Care Team Providers Care Plug Cutting Machine Operator Name Role Phone Michael Sutton MD Unavailable Unavailable Mary Whittington MD PCP Jessica Valera Unavailable Maggie Puente Unavailable Unavailable Mary Telles APRN Unavailable Bam Ritter MD Unavailable Radha Bo LPN Unavailable Unavailable Jose Sanchez MD Unavailable Encounter Details Date Type Department Care Team Description 02/04/2018 Procedure Pass [facility] Radiology [address] [address] Social History Tobacco Use Types Packs/Day Years [...]
--- OUTSIDE RECORDS SUMMARY | 2018-04-29 10:19 | XMS REPORT | Encounter Summary ---
Author Author [facility] Organization [facility] Address Unknown Phone Unavailable Care Team Providers Care Pump Attendant Name Role Phone Michael Sutton MD Unavailable Unavailable Mary Whittington MD PCP Jessica Valera Unavailable Maggie Puente Unavailable Unavailable Mary Telles APRN Unavailable Bam Ritter MD Unavailable Radha Bo LPN Unavailable Unavailable Jose Sanchez MD Unavailable Encounter Details Date Type Department Care Team Description 03/05/2018 Ancillary Rad Outpatient, Radiologist Diagnosis unknown Orders [address], [address] [place] [address] Social History Tobacco Use Types [...] encounter Results * CT ABD/PEL EXTERNAL IMAGING (03/02/2018) Narrative Performed At This order has been auto finalized and does not contain a result. in this encounter Visit Diagnoses Diagnosis Diagnosis unknown Other unknown and unspecified cause of morbidity or mortality
--- OUTSIDE RECORDS SUMMARY | 2018-04-29 10:19 | XMS REPORT | Encounter Summary ---
Author Author [facility] Address Unknown Phone Unavailable Care Team Providers Care Long Winder Tender Name Role Phone Michael Sutton MD Unavailable Unavailable Mary Whittington MD PCP Jessica Valera Unavailable Maggie Puente Unavailable Unavailable Mary Telles GOLF COURSE PATROLLER Unavailable Bam Ritter MD Unavailable Radha Bo LPN Unavailable Unavailable Jose Sanchez MD Unavailable Reason for Visit * Auth/Cert Status Reason Specialty Diagnoses / Referred By Referred To Procedures Contact Contact Diagnoses Other chronic pancreatitis (HCC) Intractable vomiting with nausea, unspecified vomiting type Other chronic pancreatitis (HCC) [K86.1] Intractable vomiting with nausea, unspecified vomiting type [R11.2] P rocedures PA ESOPHAGOGASTRODU ODENOSCOPY US SCOPE W/ADJ STRXRS ENDOSCOPIC ULTRASOUND REPORT ESOPHAGOGASTRODU ODENOSCOPY ENDOSCOPIC ULTRASOUND Encounter Details Date Type Department Care Team Description 01/31/2018 Anesthesia Gastrointenstinal Catherine Waters CRNA Event Endoscopy [address] [facility] [address] [place] [address] [place] [address] Anesthesia Record Procedure Name Responsible Anesthesia Start [...] to three times a day as needed. zungde-pjpkzber-dddwnar (VIOKACE) 20,880-78,300- 78,300 unit tab Take 3 [...] with patient Plan discussed with: anesthesiologist and NUT FEEDER. Comments: (Risks of GETA including sore throat, oral/dental injury, allergic reactions, PONV, aspiration, respiratory failure, PA, CVA discussed with patient who reports understanding [...] to three times a day as needed. ocdrlw-rrvvimfd-suymeln (VIOKACE) 20,880-78,300- 78,300 unit tab Take 3 [...] patient Blood Consent: consented Plan discussed with: NUT FEEDER and anesthesiologist. Comments: (Risks of GETA including sore throat, oral/dental injury, allergic reactions, PONV, aspiration, respiratory failure, PA, CVA discussed with patient who reports understanding [...]
--- OUTSIDE RECORDS SUMMARY | 2018-04-29 10:19 | XMS REPORT | Encounter Summary ---
Author Author [facility] Address Unknown Phone Unavailable Care Team Providers Care Bi Architect Name Role Phone Michael Sutton MD Unavailable Unavailable Mary Whittington MD PCP Jessica Valera Unavailable Maggie Puente Unavailable Unavailable Mary Telles APRN Unavailable Bam Ritter MD Unavailable Radha Bo LPN Unavailable Unavailable Jose Sanchez MD Unavailable Encounter Details Date Type Department Care Team Description 03/02/2018 Hospital [facility] Radiology [facility] [address] [place] [id number] Social History Tobacco Use Types Packs/Day Years [...] acetaminophen in 24 hours. cyanocobalamin (VITAMIN INJECT 1 ML. 1 mL 3 02/20/2018 B-12, RUBRAMIN) 1,000 INTRAMUSCULARLY EVERY 30 mcg/mL DAYS injectionIndications: Medication monitoring encounter diphenhydrAMINE (BENADRYL Take [...] to three times a day as needed. enmmbt-osfmoarr-mdxpiun Take 3 tablets by mouth 300 tablet [...] tablet bedtime daily. as of this encounter Plan of Treatment Date Type Specialty Care Team Description 12/09/2017 Procedure Pass Oncology 12/09/2017 Procedure Pass Oncology as of this encounter Procedures Procedure Name Priority Date/Time Associated Diagnosis Comments CT ABD/PEL EXTERNAL Routine 03/02/2018 Diagnosis unknown Results for this IMAGING 12:00 AM CDT procedure are in the results section. in this encounter Results * CT ABD/PEL EXTERNAL IMAGING (03/02/2018) Narrative Performed At This order has been auto finalized and does not contain a result. in this encounter Visit Diagnoses Diagnosis Diagnosis unknown Other unknown and unspecified cause of morbidity or mortality
--- OUTSIDE RECORDS SUMMARY | 2018-04-29 10:19 | XMS REPORT | Encounter Summary ---
Author Author [facility] Address Unknown Phone Unavailable Care Team Providers Care Executive Vice President And Chief Financial Officer Name Role Phone Michael Sutton MD Unavailable Unavailable Mary Whittington MD PCP Jessica Valera Unavailable Maggie Puente Unavailable Unavailable Mary Telles AUTOMATIC DRY STARCH OPERATOR Unavailable Bam Ritter MD Unavailable Radha Bo LPN Unavailable Unavailable Jose Sanchez MD Unavailable Reason for Visit * Reason Comments Nausea Vomiting Abdominal pain Abdominal Distention Diarrhea Constipation Blood in stools Encounter Details Date Type Department Care Team Description 04/09/2018 Office Visit [facility] Randy Nunez MD Vomiting, intractability Physicians - Internal [address] of vomiting not Medicine [place] [address] specified, presence [place] [address] nausea not specified, [address] [phone] [place] [address] (Primary Dx); [phone] Chronic pancreatitis, unspecified pancreatitis type (HCC) Social History Tobacco Use Types Packs/Day Years [...] 16 04/09/2018 9:45 AM CDT Oxygen Saturation - - Inhaled Oxygen - - Concentration Weight 118.5 kg (261 lb 4.8 oz) 04/09/2018 9:45 AM CDT Height 160 cm (5' 3") 04/09/2018 9:45 AM CDT Body Mass Index 46.29 04/09/2018 9:45 AM CDT in this encounter Functional Status Functional Status Response Date of Assessment Does the patient have a hearing impairment: No 04/09/2018 Does the patient have a visual impairment: No 04/09/2018 Does the patient have impaired ambulation: No 04/09/2018 Does the patient have an activity of daily living No 04/09/2018 (ADL) impairment: Does the patient have an instrumental activity of No 04/09/2018 daily living (IADL) impairment: Cognitive Status Response Date of Assessment Does the patient have a cognitive impairment: Yes 04/09/2018 as of this encounter Instructions * Patient Instructions - Randy Nunez MD - 04/09/2018 10:30 AM CDT Call my nurse at [phone] if you have any troubles or questions. Take 3 Viokase with each meal. Make sure you call your oncologist in [place] to let them know about the new liver lesion. Stop Zofran. Start Compazine 5mg every 8 hours as needed for nausea. in this encounter Progress Notes * Randy Nunez MD - 04/09/2018 10:30 AM CDT Formatting of this note may be different from the original. Date of Service: 04/09/2018 Subjective: Janeth Rajput is a 33 y.o. female. History of Present Illness Janeth was last seen by Jessica Valera in the GI Clinic on 12/09/2017. Please refer to her excellent note. Briefly, she has a history of idiopathic chronic pancreatitis and underwent recent repeat endoscopic ultrasound on 01/31/2018 and MRCP on 02/19/2018. This confirmed chronic pancreatitis as well as pancreas divisum. She has a long-standing history of upper abdominal pain as well as episodes of nausea and vomiting. More recently, she was diagnosed with renal cell cancer, underwent left nephrectomy in March 2017. She subsequently has been found to have a left lower lobe pulmonary versus pleural base nodule and by her report more recently, a liver lesion. She follows at the [facility] in [place], [place]. She was recently diagnosed with Clostridium difficile in late November and then apparently was diagnosed by her report with staph infection. There was a question of whether or not it could be related to mesh placement for an incisional hernia, which she had done on 08/22/2017. She also states that she underwent fluid drainage and sounds like possible wound debridement as well. From GI standpoint, she has continued to have episodes of vomiting. At times, she will have some nausea that precedes the vomiting. At other times, she can simply vomit. She typically eats about 1 meal per day and this consists of soup and yogurt. She will occasionally have some solid foods. Her weight is down about 2 pounds from November. She has some occasional heartburn. She denies odynophagia or dysphagia. She had been troubled with diarrhea, which led to the diagnosis of Clostridium difficile, but currently her bowel pattern is back to normal just typically loose bowel movement after meals. She has some blood in the stool. Colonoscopy performed on 07/03/2017 revealed normal colonic mucosa, but internal and external hemorrhoids. She will take Zofran, but may have to take up to 16 mg to help with her nausea. Phenergan does not help. She has never been on Compazine. She denies taking NSAIDs. She does not drink any alcohol. She states that she had blood work recently done by her primary physician and by her report these were normal. She is scheduled to see Dr. Poe in the Urology Clinic in May. Otherwise, she denies any fevers or sweats. MRCP 02/19/18: 1. Pancreas divisum. No significant pancreatic ductal dilatation. 2. Previous cholecystectomy. No significant biliary ductal dilatation or choledocholithiasis. 3. Previous left nephrectomy. Unchanged small linear soft tissue thickening in the left renal fossa most compatible scarring. 4. Hepatosplenomegaly with diffuse hepatic steatosis. Past medical history: 1. Changes of chronic pancreatitis on past endoscopic ultrasound. Most recent EUS - 01/31/2018 with confirmed chronic pancreatitis, pancreas divisum. 2. 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, status post total abdominal hysterectomy and oophorectomy in November 2012. 3. Status post cholecystectomy (2006). 4. History of depression. 5. Significant weight gain. 6. Left nephrectomy (renal cell cancer) 03/2017. Now with LLL nodule. 7. GET 07/15/13 normal. 8. MRI head 07/15/13 normal. 9. C difficile diarrhea 12/12/2017 (Flagyl). 10. Incisional hernia repair with mesh 08/22/2017. 11. Staph infection December 2017 (Vancomycin, Zyvox). Family history: paternal great uncle pancreatic cancer; maternal grandfather "abdominal tumor"; mother with colon polyps; paternal great uncle colon cancer. Social history: no alcohol or tobacco use. Review of Systems Constitutional: Positive for appetite change and fatigue. HENT: Positive for sneezing and tinnitus. Eyes: Positive for itching. Gastrointestinal: Positive for abdominal pain, diarrhea, nausea and vomiting. Endocrine: Positive for polydipsia. Genitourinary: Positive for difficulty urinating. Musculoskeletal: Positive for arthralgias, back pain, neck pain and neck stiffness. Neurological: Positive for dizziness, light-headedness and headaches. Psychiatric/Behavioral: The patient is nervous/anxious. All other systems reviewed and are negative. Objective: acetaminophen (TYLENOL) 500 mg tablet Take 1,000 mg by mouth every 6 hours as needed for Pain (patient does not take more than four per day). Max of 4,000 mg of acetaminophen in 24 hours. cyanocobalamin (VITAMIN B-12, RUBRAMIN) 1,000 mcg/mL injection INJECT 1 ML. INTRAMUSCULARLY EVERY 30 DAYS diphenhydrAMINE (BENADRYL ALLERGY) 25 [...] to three times a day as needed. sqfijd-rfuyrldv-iihhwwl (VIOKACE) 20,880-78,300- 78,300 unit tab Take 3 tablets by mouth three times daily with meals. Take 2 with snacks. ondansetron (ZOFRAN ODT) 8 mg rapid dissolve tablet Dissolve 1 tablet by mouth twice daily. Place on tongue to disolve. rOPINIRole (REQUIP) 4 mg tablet Take 4 mg by mouth at bedtime daily. Vitals: 04/09/18 0945 BP: 122/80 Pulse: 72 Resp: 16 Temp: 36.5 C (97.7 F) TempSrc: Oral Weight: 118.5 kg (261 lb 4.8 oz) Height: 160 cm (63") Body mass index is 46.29 kg/m. Physical Exam Constitutional: She is oriented to [...] no distension and no mass. There is no tenderness. There is no rebound and no guarding. Well healed incision Musculoskeletal: She exhibits no edema. Lymphadenopathy: She [...] vomiting, treated with ondansetron. 2. Chronic pancreatitis (EUS). 3. C difficile infection 12/12/2017. 4. History of colon polyps, normal colonoscopy 07/04/2017. 5. Nonalcoholic steatosis with prior history of elevated liver enzymes. 6. Status post left radical nephrectomy for renal cell cancer in March 2017. 7. Family history colon polyps and colon cancer. I had a long discussion with Janeth. We reviewed her GI symptoms and I have reviewed GI testing to date. She has chronic epigastric pain, which may be related to chronic pancreatitis. Trigger point and celiac plexus block in the past have not been of benefit. She is not always taking her Viokase, but I have encouraged her to take this before she eats. Regarding her episodes of nausea and vomiting, these are sporadic, but tend to occur several days out of the week. It is not necessarily meal related. She will take Zofran, which may help, but at higher doses. We discussed stopping Zofran and trying Compazine. Phenergan has been tried in the past without any benefit. I discussed with her the importance of letting her oncologist know about the apparent new liver lesion that was identified by local imaging. She states that she will contact his office to let them know about this. Otherwise, she plans on following with Dr. Poe in Urology in May. At the present time, I recommend the following indent: 1. Discontinue Zofran, try Compazine 5 mg as needed for nausea and vomiting. 2. Diet as tolerated. 3. I have asked her to contact her oncologist to let them know about the new liver lesion that was apparently seen by a local imaging to see if any further evaluation needs to be undertaken. 4. She will follow up with Dr. Poe in Urology as scheduled for May 2018. 5. Trial of proton pump inhibitor, omeprazole 40 mg taken before morning meal. 6. Continue Viokase with meals. 7. If hemorrhoidal bleeding persists, we could consider referral to Colorectal Surgery for definitive treatment as local therapies have not been of much benefit. 8. Follow up with me in the GI Clinic in 3 months or sooner if needed. 9. I had a very long discussion and all questions were answered. in this encounter Plan of Treatment Date Type Specialty Care Team Description 12/09/2017 Procedure Pass Oncology 12/09/2017 Procedure Pass Oncology as of this encounter Visit Diagnoses Diagnosis Vomiting, intractability of vomiting not specified, presence of nausea not specified, unspecified vomiting type - Primary Chronic pancreatitis, unspecified pancreatitis type (HCC)
--- OUTSIDE RECORDS SUMMARY | 2018-04-29 10:19 | XMS REPORT | Encounter Summary ---
Author Author [facility] Organization [facility] Address Unknown Phone Unavailable Care Team Providers Care Farmworker Field Crop Name Role Phone Michael Sutton MD Unavailable Unavailable Mary Whittington MD PCP Utech, Jessica COREMAKING SUPERVISOR Unavailable Maggie Puente Unavailable Unavailable Mary Telles LINE OPERATOR Unavailable Bam Ritter MD Unavailable Radha Bo BOTTLING ROOM WORKER Unavailable Unavailable Jose Sanchez MD Unavailable Reason for Referral * Radiology Services (Routine) Status Reason Specialty Diagnoses / Referred By Referred To Procedures Contact Contact No Auth Needed Radiology Diagnoses Utech, Jessica, Bhb Mri Chronic COREMAKING SUPERVISOR [address] pancreatitis, [address] [place], [place] pancreatitis [place] [address] [id number] type ([facility]) [place], [place] Phone: [phone] rocedures Phone: MRI MRCP [phone] * Radiology Services (Routine) Status Reason Specialty Diagnoses / Referred By Referred To Procedures Contact Contact No Auth Needed Radiology Diagnoses Utech, Jessica, Bhb Mri Chronic COREMAKING SUPERVISOR [address] pancreatitis, [address] [place], [place] pancreatitis [place] [address] [id number] type ([facility]) [place], [place] Phone: [phone] rocedures Phone: MRI MRCP [phone] Reason for Visit * Radiology Services (Routine) Status Reason Specialty Diagnoses / Referred By Referred To Procedures Contact Contact No Auth Needed Radiology Diagnoses Utech, Jessica, Bhb Mri Chronic COREMAKING SUPERVISOR [address] pancreatitis, [address] [place], [place] pancreatitis [place] [address] [id number] type (HCC) [place], [place] Phone: [phone] rocedures Phone: MRI MRCP [phone] Encounter Details Date Type Department Care Team Description 02/19/2018 Hospital [facility] Utech, Jessica, COREMAKING SUPERVISOR Encounter Hospital Radiology [address] [place] [address] [place] [address] [phone] Social History Tobacco Use Types Packs/Day Years [...] to three times a day as needed. imzowm-uxlozyov-hailppu Take 3 tablets by mouth 300 tablet [...]
--- OUTSIDE RECORDS SUMMARY | 2018-04-29 10:20 | XMS REPORT | Encounter Summary ---
Author Author [facility] Organization [facility] Address Unknown Phone Unavailable Care Team Providers Care Generation Technician Name Role Phone Michael Sutton MD [...] Date Type Department Care Team Description 01/31/2018 [facility] Hal Sparks MD Other chronic Encounter Endoscopy [address] pancreatitis (HCC) [address] [place] [address] [place] [address] [phone] Social History Tobacco Use Types Packs/Day Years [...] After 5:00 pm, holidays or weekends call [phone] and ask for the GI Doctor chronometer tester. in this encounter Medications at Time of [...] to three times a day as needed. mfbpfm-bnnciaba-ptngcnr Take 3 tablets by mouth 300 tablet [...] 06/03/2017 TOTBILI 0.4 06/03/2017 JONA Salcedo Pager [phone] in this encounter Plan of Treatment Date [...] OTHER RESULTS Procedure Date: 01/31/2018 12:46 PM [facility]: [id number] Date of : 1985 Gender: Female Attending Physician: Hal Sparks MD Procedure: Upper EUS Indications: Acute recurrent pancreatitis Providers: Hal Sparks MD (Doctor), Jake Crocker MD (Fellow), Delilah Jarquin RN (Nurse), Jose Mcclure (Acrobatic Dancer) Referring Physician: Randy Nunez MD, Jessica Valera [...] 45 seconds Procedure Code(s): --- Professional --- 92555, Esophagogastroduodenoscopy, flexible, transoral; with endoscopic ultrasound examination limited to the esophagus, stomach or duodenum, and adjacent structures CPT copyright 2016 [employer]. All rights reserved. The codes documented in this report are preliminary and upon highway engineering technician review may be revised to meet current [...]
--- OUTSIDE RECORDS SUMMARY | 2018-04-29 10:22 | XMS REPORT ---
Author Author BECCA DILLARD [facility] Address [address] [place] [address] Phone Unavailable Care Team Providers Care Nremt Name Role Phone BECCA DILLADR Unavailable Unavailable PROBLEMS Type Condition ICD9-CM Code UXS18-ED Code Onset Dates Condition Status SNOMED Code Problem Atelectasis J98.11 Active 20785876 Problem Restless leg syndrome G25.81 Active 86155079 Problem Trichotillomania F63.3 Active 46077537 Problem Primary osteoarthritis of right knee M17.11 Active [id number] Problem Intestinal malabsorption, unspecified K90.9 Active 71490362 Problem Chronic post-traumatic stress disorder (PTSD) F43.12 Active 244426520 Problem Generalized social phobia F40.11 Active 53043932 Problem Chronic fatigue R53.82 Active 15589605 Problem Moderate episode of recurrent major depressive disorder F33.1 Active 569718627 Problem Chronic tension-type headache, intractable G44.221 Active 875361563 Problem Morbid (severe) obesity due to excess calories E66.01 Active 070493571 Problem Nodule of left lung R91.1 Active 986185906 Problem History of renal cell carcinoma Z85.528 Active 977562711 Problem FH: polycystic ovary Z84.2 Active 225319513 Problem Chronic pancreatitis K86.1 Active 531201269 Problem Hyperlipidemia, mixed E78.2 Active 482135409 Problem Asthma J45.909 Active 996428367 Problem Hirsuties L68.0 Active 273738586 Problem Polydipsia R63.1 Active 88508303 ALLERGIES No Information ENCOUNTERS Encounter Location Date Diagnosis [facility] [address] [address] Apr, [facility] [id number] [address] Mar, [facility] [id number] [place] [address]15 [address] Mar, BMI 45.0-49.9, adult Z68.42 and Pimples R23.8 [facility] [id number] [place] [address] 32940- 1929 Mar, [facility] [id number] [place] [address] 13411- 1615 Mar, [facility] [id number] [place] [address] 44430- 5385 Mar, Decreased urination R34 ; Chronic fatigue R53.82 ; Peripheral edema R60.9 ; Diarrhea, unspecified type R19.7 ; Non-intractable vomiting with nausea, unspecified vomiting type R11.2 ; BMI 45.0-49.9, adult Z68.42 and Chronic post-traumatic stress disorder (PTSD) F43.12 [place] [facility] [id number] [place] [address] 97409- 6052 Mar, Intestinal malabsorption, unspecified K90.9 ; Diarrhea, unspecified R19.7 ; Urinary urgency R39.15 ; Rectal bleeding K62.5 and Decreased urine output R34 [facility] [id number] [place] [address] 28622- 4665 Mar, Decreased urine output R34 [facility] [id number] [place] [address] 40331- 1667 Mar, Rectal bleeding K62.5 [facility] [id number] [place] [address] 06423- 2242 Mar, Rectal bleeding K62.5 [facility] [id number] [place] [address] 14857- 1787 Mar, Urinary urgency R39.15 [facility] [id number] [place] [address] 64143- 2521 Mar, Urinary urgency R39.15 [facility] [id number] [place] [address] 55521- 4747 Mar, Primary osteoarthritis of right knee M17.11 and BMI 45.0- 49.9, adult Z68.42 [facility] [id number] [place] [address] 08989- 1980 Mar, [facility] [id number] [place] [address] 92664- 6730 Feb, Left upper arm pain M79.622 [facility] [id number] [place] [address] 78612- 0563 Feb, [facility] [id number] [place] [address] 28114- 7615 Jan, Acute pain of right knee M25.561 ; Right upper quadrant abdominal pain R10.11 and BMI 45.0-49.9, adult Z68.42 [facility] [id number] [place] [address] 01884- 1073 Jan, [facility] [id number] [place] [address] 23189- 6312 Jan, [facility] [id number] [place] [address] 12920- 9579 Dec, [facility] [id number] [place] [address] 57176- 2755 Dec, Intestinal malabsorption, unspecified K90.9 and Diarrhea, unspecified R19.7 [facility] [id number] [place] [address] 34555- 4503 Dec, [facility] [id number] [place] [address] 62701- 4904 Dec, Strep throat J02.0 ; Intestinal malabsorption, unspecified K90.9 ; Diarrhea, unspecified R19.7 ; Postoperative seroma involving digestive system after non-digestive system procedure K91.873 ; Hyperlipidemia, mixed E78.2 and BMI 45.0-49.9, adult Z68.42 [facility] [id number] [place] [address] 55719- 2992 Dec, [facility] [address] [address] 2746 Dec, Nausea R11.0 [facility] [address] [address] 28[address] Dec, [facility] [address], [place] [address] Dec, Sore throat J02.9 ; Strep throat J02.0 and BMI 45.0-49.9, adult Z68.42 [facility] [id number] [address] 1649 Dec, [facility] [address] [address] 1954 Dec, [facility] [address] [address] 8453 Dec, [facility] [address] [address] 7213 Dec, [facility] [address] [address]- 7175 Dec, [facility] [address], [place] [address]- 4923 Dec, [facility] [address] [address]- 1418 Dec, [facility] [address] [address]- 4122 Dec, [facility] [id number] [address] 2495 Dec, Clostridium difficile colitis A04.72 ; Intractable vomiting with nausea, unspecified vomiting type R11.2 and BMI 45.0-49.9, adult Z68.42 [facility] [address] [address] 2157 Dec, [facility] [address] [address]- 9[address] 30 Nov, 2017 [facility] [id number] [place] [address] 92909- 2633 Nov, [facility] [id number] [place] [address] 32943- 6111 Nov, [facility] [id number] [place] [address] 29145- 5816 Nov, [facility] [id number] [place] [address] 97663 -2466 Nov, [facility] [id number] [place] [address] 94678- 5943 Nov, Hyperlipidemia, mixed E78.2 [facility] [place] [id number] [place] [address] 69420 -2953 Nov, Acute suppurative otitis media of right ear without spontaneous rupture of tympanic membrane, recurrence not specified H66.001 and BMI 45.0-49.9, adult Z68.42 [facility] [id number] [place] [address] 26153- 2112 Nov, Hyperlipidemia, mixed E78.2 [facility] [id number] [place] [address] 63582- 2650 Nov, [facility] [id number] [place] [address] 00130- 9017 Nov, [facility] [id number] [place] [address] 07321- 1953 Nov, Nodule of left lung R91.1 [facility] [facility] [id number] [place] [address] 93736- 0254 04 Nov, 2017 Medicare annual wellness visit, [...] adult Z68.42 and Encounter for immunization Z23 [facility] [id number] [place] [address] 29643- 6723 October, [facility] [address] 21525- 9736 October, Nodule of left lung R91.1 [facility] [facility] [address] 73642- 9160 October, Nodule of left lung R91.1 [facility] [id number] [place] [address] 13107- 8539 October, Recurrent major depressive disorder, in partial remission F33.41 ; Restless leg syndrome G25.81 ; Generalized social phobia F40.11 ; Chronic post-traumatic stress disorder (PTSD) F43.12 ; BMI 45.0-49.9, adult Z68.42 and Trichotillomania F63.3 [facility] [facility] [address] 90367- 4449 October, [facility] [id number] [place] [address] 46820- 4751 Sep, Chronic fatigue R53.82 and BMI 45.0-49.9, adult Z68.42 [facility] [id number] [place] [address] 15624- 0831 Aug, [facility] [id number] [place] [address] 06081- 5399 Jul, Restless leg syndrome G25.81 and B12 deficiency E53.8 [facility] [id number] [place] [address] 60238- 5907 Jul, [place] [facility] [address] 96188- 1048 Jul, [facility] [id number] [address]- 6104 Jun, [facility] [address] [address] Jun, Fatigue, unspecified type R53.83 ; History of renal cell carcinoma Z85.528 ; Chronic pancreatitis K86.1 ; Restless leg syndrome G25.81 ; Dark urine R82.99 and BMI 45.0-49.9, adult Z68.42 [facility] [address] [address]- 9125 Jun, [facility] [id number] [place] [address] 29047- 1523 Jun, [place] [facility] [address] [address]- 2586 Jun, [facility] [address] [address]- 2748 Jun, [facility] [id number] [address]- 3857 May, Chronic post-traumatic stress disorder (PTSD) F43.12 ; Moderate episode of recurrent major depressive disorder F33.1 ; Trichotillomania F63.3 and Generalized social phobia F40.11 [facility] [facility] [id number] [address]- 1685 May, [facility] [id number] [address]- 6217 May, Chronic post-traumatic stress disorder (PTSD) F43.12 ; Moderate episode of recurrent major depressive disorder F33.1 ; Trichotillomania F63.3 and Generalized social phobia F40.11 [facility] [facility] [id number] [address]- 7992 May, Hyperlipidemia, mixed E78.2 ; Morbid (severe) obesity due to excess calories E66.01 ; Chronic post-traumatic stress disorder (PTSD) F43.12 ; Moderate episode of recurrent major depressive disorder F33.1 ; Trichotillomania F63.3 and Generalized social phobia F40.11 [facility] [id number] [place] [address] 12643- 6568 30 Apr, 2017 [facility] [id number] [place] [address] 63317- 8990 29 Apr, 2017 Hyperlipidemia, mixed E78.2 ; Morbid (severe) obesity due to excess calories E66.01 ; Chronic post-traumatic stress disorder (PTSD) F43.12 ; Moderate episode of recurrent major depressive disorder F33.1 ; Trichotillomania F63.3 and Generalized social phobia F40.11 [place] [id number] [place] [address] 26620- 3622 Apr, Trichotillomania F63.3 ; Generalized social phobia F40.11 ; Chronic post-traumatic stress disorder (PTSD) F43.12 and Moderate episode of recurrent major depressive disorder F33.1 [place] [facility] [id number] [place] [address] 64819- 4751 15 Apr, 2017 [place] [id number] [place] [address] 07403- 8470 Apr, [facility] [id number] [place] [address] 49695- 4290 24 Mar, 2017 Moderate episode of recurrent major depressive disorder F33.1 ; Trichotillomania F63.3 ; Chronic post-traumatic stress disorder (PTSD) F43.12 ; Generalized social phobia F40.11 and Restless leg syndrome G25.81 [facility] [address] [place] [address] 59772- 7920 Mar, [place] [id number] [place] [address] 24889- 0464 Mar, [facility] [address] [place] [address] 95717- 1512 Feb, Left kidney mass N28.89 [facility] [facility] [address] [address]- 7670 Jan, [facility] [id number] [place] [address] 65213- 9161 Dec, Polydipsia R63.1 ; Chronic pancreatitis K86.1 and Fatigue, unspecified type R53.83 [facility] [id number] [place] [address] 37528- 5059 Nov, [facility] [id number] [place] [address] 63578- 0188 Nov, [facility] [id number] [place] [address] 16413- 1954 Nov, Headache around the eyes R51 [facility] [id number] [place] [address] 25806- 7607 Nov, [facility] [id number] [place] [address] 19440- 3889 October, STD exposure Z20.2 [facility] [id number] [place] [address] 51211- 6923 October, STD exposure Z20.2 [facility] [id number] [place] [address] 21994- 0244 October, Chronic post-traumatic stress disorder (PTSD) F43.12 ; Generalized social phobia F40.11 ; Trichotillomania F63.3 and Restless leg syndrome G25.81 [facility] [address] [place] [address] 63890- 4037 October, [facility] [id number] [place] [address] 79387- 7721 Sep, [facility] [id number] [place] [address] 97102- 0277 Aug, [facility] [id number] [place] [address] 23328- 3843 Aug, [facility] [facility] [id number] [place] [address] 89443- 0419 08 Aug, 2016 Neck mass R22.1 [facility] [facility] [address] 83639- 3451 03 Aug, 2016 Atelectasis J98.11 [place] [facility] [address] 51858- 0583 28 Jul, 2016 Hyperlipidemia, mixed E78.2 ; Atypical pneumonia J18.9 and Neck mass R22.1 [place] [address] 17613- 5733 15 Jul, 2016 [address] R[address] 33336- 4449 08 Jul, 2016 Acute non-recurrent pansinusitis J01.40 ; Hemoptysis R04.2 ; Polydipsia R63.1 and Malaise R53.81 [facility] [address] [address]77 -[address]31 May, Other viral agents as the cause of diseases classified elsewhere B97.89 and Acute upper respiratory infection, unspecified J06.9 [facility] [place] [id number] [place] [address] 47872 -6562 Mar, Nausea R11.0 [facility] [address] 18637 -4320 Dec, Hives L50.9 [place] [id number] [place] [address] 28296- 3322 14 Dec, 2015 [facility] [address] 48132 -4758 10 Dec, 2015 Cutaneous abscess of limb, unspecified L02.419 ; Cellulitis of unspecified part of limb L03.119 ; Encounter for incision and drainage procedure Z01.89 and Encounter for recheck of abscess following incision and drainage Z09 [facility] [address] [place] [address] 09 Dec, 2015 Abscess of leg, right L02.415 [place] [id number] [place] [address] 81751- 2231 Dec, Cellulitis of unspecified part of limb L03.119 and Cutaneous abscess of limb, unspecified L02.419 [place] [id number] [place] [address] 10555- 6222 Dec, [place] [facility] [id number] [place] [address] 86472- 7623 Dec, [facility] [place] [id number] [place] [address] 07527 -8435 Aug, [place] [id number] [place] [address] 10229- 9333 Aug, [facility] [place] [id number] [place] [address] 20782 -8992 Jul, Pain in unspecified wrist M25.539 and Back pain, thoracic M54.6 [facility] [place] [id number] [place] [address] 25069 -6886 Jun, Strain of right wrist, initial encounter S66.911A [place] [id number] [place] [address] 85766- 3617 Jun, Chronic pancreatitis, unspecified pancreatitis type K86.1 ; Hirsuties L68.0 ; Morbid (severe) obesity due to excess calories E66.01 ; Chronic pancreatitis K86.1 and Asthma J45.909 [place] [id number] [place] [address] 34984- 8051 May, [place] [facility] [id number] [place] [address] 52902- 7752 May, Hyperlipidemia, mixed E78.2 and Muscle spasm of back M62.830 [place] [id number] [place] [address] 29595- 7186 Apr, [facility] [id number] [place] [address] 63464- 3298 Apr, Torticollis M43.6 [facility] [id number] [place] [address] 16545- 0293 Apr, Right-sided thoracic back pain M54.6 [facility] [id number] [place] [address] 80037- 8640 Mar, Rash R21 [facility] [id number] [place] [address] 95479- 9543 Mar, [facility] [id number] [place] [address] 43594- 5327 Jan, [facility] [id number] [place] [address] 12489- 4715 Dec, [facility] [id number] [place] [address] 83813- 8696 Dec, Urinary frequency 788.41 and Nocturia more than twice per night 788.43 [facility] [id number] [place] [address] 47088- 9730 Nov, [facility] [id number] [place] [address] 07338- 8682 Nov, [facility] [id number] [place] [address] 41482- 5448 Nov, Abdominal pain 789.00 [facility] [id number] [place] [address] 82707- 7102 October, TDAP DX V06.1 [facility] [id number] [place] [address] 84834- 2710 October, [facility] [id number] [place] [address] 85486- 1937 October, Disturbance of skin sensation 782.0 ; Wrist pain, right 719.43 ; Hyperlipidemia 272.4 and Skin lesion of face 709.9 [facility] [place] [facility] [address] [id number] [place] [address]- 6672 14 Sep, 2014 [facility] [place] [facility] [address] [id number] [place] [address]- 5780 13 Sep, 2014 [facility] [place] [facility] [address] [id number] [place] 7783 26 Aug, 2014 [facility] [place] [facility] [address] [id number] [place] [address]- 9330 26 Aug, 2014 [facility] [place] [facility] [address] [id number] [place] [address]- 0381 23 Aug, 2014 [facility] [place] [facility] [address] [id number] [place] [address]- 9932 23 Aug, 2014 [facility] [place] [facility] [address] [id number] [place] [address]- 7233 16 Aug, 2014 [facility] [place] [facility] [address] [id number] [place] [address]- 9798 16 Aug, 2014 [facility] [place] [facility] [address] [id number] [place] [address]- 3575 14 Aug, 2014 [facility] [place] [facility] [address] [id number] [place] [address]- 4581 14 Aug, 2014 [facility] [place] [facility] [address] [id number] [place] [address]- 0393 11 Aug, 2014 [facility] [place] [facility] [address] [id number] [address]- 1507 11 Aug, 2014 [facility] [place] [facility] [address] [id number] [place] [address]- 3874 04 Aug, 2014 [facility] [place] [facility] [address] [id number] [place]- 9946 04 Aug, 2014 [facility] [place] [facility] [address] [id number] [place] [address]- 5847 03 Aug, 2014 [facility] [place] [facility] [address] [id number] [address]- 6054 Aug, [facility] [place] [facility] [address] [id number] [place] [address]- 0713 Jul, [facility] [place] [facility] [address] [id number] [place] [address]- 1576 Jul, [facility] [place] [facility] [address] [id number] [place] [address]- 5146 Jul, [facility] [place] [facility] [address] [id number] [place] [address]- 4162 Jul, [facility] [place] [facility] [address] [id number] [place] [address]- 5121 Jul, [facility] [place] [facility] [address] [id number] [place] [address]- 0017 Jul, [facility] [place] [facility] [address] [id number] [place] [address]- 6648 Jun, [facility] [place] [facility] [address] [id number] [place] [address]- 5388 Jun, [facility] [place] [facility] [address] [id number] [place] [address]- 4924 Jun, [facility] [place] [facility] [address] [facility] [id number] [place] [address]- 0388 Jun, [facility] [place] [facility] [address] [id number] [place] [address]- 7716 Jun, [facility] [place] [facility] [address] [id number], [place] [address]- 4710 Jun, [facility] [place] [facility] [address] [id number] [place] [address]- 5517 Jun, [facility] [place] [facility] [address] [id number] [place] [address] Jun, [facility] [place] [facility] [address] [id number], [place] [address] May, [facility] [place] [facility] [address] [id number] [place] [address] May, [facility] [place] [facility] [address] [id number] [place] [address] May, [facility] [place] [facility] [address] [id number] [place] [address] May, [facility] [place] [facility] [address] [id number] [place] [address] May, [facility] [place] [facility] [address] [id number] [place] [address] May, [facility] [place] [facility] [address] [id number] [place] [address] May, [facility] [place] [facility] [address] [id number] [place] [address] May, [facility] [place] [facility] [address] [id number] [place] [address] May, [facility] [place] [facility] [address] [id number] [place] [address] May, [facility] [place] [facility] [address] [id number] [place] [address] May, [facility] [place] [facility] [address] [id number] [place] [address] May, [facility] [place] [facility] [address] [id number] [place] [address] Apr, [facility] [place] [facility] [address] [id number] [place] [address] Apr, [facility] [place] [facility] [address] [id number] [place] [address] Apr, [facility] [place] [facility] [address] [id number] [place] [address] Apr, [facility] [place] [facility] [address] [id number] [place] [address] Apr, [facility] [place] [facility] [address] [id number] [place] [address] Apr, [facility] [place] [facility] [address] [id number] [place] [address] Apr, [facility] [place] [facility] [address] [id number] [place] [address]- [address] Apr, [facility] [place] [facility] [address] [id number] [place] [address]- [address] Apr, [facility] [place] [facility] [address] [id number] [place] [address] Apr, [facility] [place] [facility] [address] [id number] [place] [address]- [address] Apr, [facility] [place] [facility] [address] [id number] [place] [address]- [address] Apr, [facility] [place] [facility] [address] [id number] [place] [address] Mar, [facility] [place] [facility] [address] [id number] [place] [address] Mar, [facility] [place] [facility] [address] [id number] [place] [address] Mar, [facility] [facility] [address] [id number], [place] [address] Mar, [facility] [address] [id number], [place] [address] 10 Feb, 2014 [facility] [address] [id number] [place] [address] 10 Feb, 2014 [facility] [address] [id number] [place] [address] 05 Feb, 2014 [facility] [address] [id number] [place] [address] 05 Feb, 2014 [facility] [place] [facility] [address] [id number] [place] [address] 05 Feb, 2013 [facility] [place] [address] [id number] [place] [address] Feb, [facility] [place] [address] [id number] [place] [address] Jan, [facility] [place] [facility] [address] [id number] [place] [address] Jan, [facility] [place] [facility] [address] [id number] [place] [address] Jan, [facility] [place] [facility] [address] [id number] [place] [address] 7[address] Jan, [facility] [place] [facility] [address] [id number] [place] [address] 7852 Jan, [facility] [place] [facility] [address] [id number] [place] [address] 5253 Jan, [facility] [place] [facility] [address] [id number] [place] [address] 7488 Jan, [facility] [place] [facility] [address] [id number] [place] [address] 8221 Jan, [facility] [place] [facility] [address] [id number] [place] [address] 3844 Jan, [facility] [place] [facility] [address] [id number] [place] [address] 2688 Jan, [facility] [place] [facility] [address] [id number] [place] [address]- 4978 Jan, [facility] [place] [facility] [address] [id number] [place] [address]- 4459 Jan, [facility] [place] [facility] [address] [id number] [place] [address] 9785 Jan, [facility] [place] [facility] [address] [id number] [place] [address]- 3714 Jan, [facility] [place] [facility] [address] [id number] [place] [address]- 8792 Dec, [facility] [place] [facility] [address] [id number] [place] [address]- 8373 Dec, [facility] [place] [facility] [address] [id number] [place] Dec, [facility] [place] [facility] [address] [id number] [place] [address]- 0604 Dec, [facility] [place] [facility] [address] [id number] [place] [address]- 3197 Nov, [facility] [place] [facility] [address] [id number] [place] [address] 8995 Nov, [facility] [place] [facility] [address] [id number] [place] [address] 8209 Nov, [facility] [place] [facility] [address] [id number] [place] [address] 8427 Nov, [facility] [place] [facility] [address] [id number] [place] [address]- 2057 Nov, [facility] [place] [facility] [address] [id number] [place] [address]- 2377 October, [facility] [place] [facility] [address] [id number] [place] [address]- 8683 October, [facility] [place] [facility] [address] [id number] [place] [address]- 8180 October, [facility] [place] [facility] [address] [id number] [place] [address]- 5317 October, [facility] [place] [facility] [address] [id number] [place] [address]- 8400 October, [facility] [place] [facility] [address] [id number] [place] October, [facility] [place] [facility] [address] [id number] [place] [address]- 7200 October, [facility] [address] [id number] [place] [address]- 5528 October, [facility] [place] [facility] [address] [id number] [place] [address]- 0196 October, [facility] [address] [id number] [place] [address]- 8705 October, [facility] [place] [facility] [address] [id number] [place] [address]- 5831 October, [facility] [place] [facility] [address] [id number] [place] [address]- 4512 October, [facility] [place] [facility] [address] [id number] [place] [address]- 8993 October, [facility] [address] [id number] [place] [address]- 1197 October, [facility] [place] [facility] [address] [id number] [place] [address]- 8505 Sep, [facility] [place] [facility] [address] [id number] [place] [address]- 9182 Sep, [facility] [place] [facility] [address] [id number] [place] [address]- 7961 Sep, [facility] [place] [facility] [address] [id number] [place] [address]- 6497 Sep, [facility] [place] [facility] [address] [id number] [place] [address]- 3972 Sep, [facility] [place] [facility] [address] [id number] [place] [address]- 8784 Sep, [facility] [place] [facility] [address] [id number] [place] [address]- 7034 Sep, [facility] [place] [facility] [address] [id number] [place] [address]- 0086 Sep, [facility] [place] [facility] [address] [id number] [place] [address]- 3114 Sep, [facility] [place] [facility] [address] [id number] [place] [address]- 0008 Sep, [facility] [place] [facility] [address] [id number] [place] [address]- 9300 Sep, [facility] [place] [facility] [address] [id number] [place] [address]- 6715 Sep, [facility] [place] [facility] [address] [id number] [place] [address]- 4071 Sep, [facility] [place] [facility] [address] [id number] [place] [address]- 2255 Sep, [facility] [place] [facility] [address] [id number] [place] [address]- 3051 Sep, [facility] [place] [facility] [address] [id number] [place] [address]- 2579 Aug, [facility] [place] [facility] [address] [id number] [place] [address]- 5344 Aug, [facility] [place] [facility] [address] [id number] [place] [address]- 7664 Aug, [facility] [place] [facility] [address] [id number] [place] [address]- 9769 Aug, [facility] [place] [facility] [address] [id number] [place] [address]- 0253 Jul, [facility] [place] [facility] [address] [id number] [place] [address]- 3923 Jul, [facility] [place] [facility] [address] [id number] [place] [address]- 6939 Jul, [facility] [place] [facility] [address] [id number] [place] [address]- 1242 Jul, [facility] [place] [facility] [address] [id number] [place] [address]- 3456 15 Jun, 2013 [facility] [place] [facility] [address] [id number] [place] [address]- 3772 15 Jun, 2013 [facility] [place] [facility] [address] [id number] [place] [address]- 6650 15 Jun, 2013 [facility] [place] [facility] [address] [id number] [place] [address]- 5921 15 Jun, 2013 [facility] [place] [facility] [address] [id number] [address] 5695 Jun, [facility] [place] [facility] [address] [id number] [place] [address]- 7002 Jun, [facility] [place] [facility] [address] [id number] [place] [address]- 1137 Jun, [facility] [place] [facility] [address] [id number] [address] 9209 Jun, [facility] [place] [facility] [address] [id number] [place] [address]- 7917 May, [facility] [place] [facility] [address] [id number] [place] [address]- 4331 May, [facility] [place] [facility] [address] [id number] [place] [address]- 4332 18 May, 2013 [facility] [place] [facility] [address] [id number] [address]- 9594 18 May, 2013 [facility] [place] [facility] [address] [id number], [place] [address]- 8455 17 May, 2013 [facility] [place] [facility] [address] [id number] [place] [address] 17 May, 2013 [facility] [place] [facility] [address] [id number] [place] [address]147 17 May, 2013 [facility] [place] [facility] [address] [id number] [place] [address] 17 May, 2013 [facility] [place] [facility] [address] [id number] [place] [address]- 5750 16 May, 2013 [facility] [address] [id number] [place] [address]- 6566 16 May, 2013 [facility] [address] [id number] [place] [address]- 6536 14 May, 2013 [facility] [address] [id number] [place] [address]- 9096 14 May, 2013 [facility] [address] [id number] [place] [address]- 7809 13 May, 2013 [facility] [address] [id number] [place] [address]- 1130 13 May, 2013 [facility] [address] [id number] [place] [address]- 2835 12 May, 2013 [facility] [address] [id number] [place] [address]- 6817 12 May, 2013 [facility] [address] [id number] [place] [address]- 6030 11 May, 2013 [facility] [address] [id number] [place] [address]- 2862 11 May, 2013 [facility] [address] [id number] [place] [address]- 1012 26 Apr, 2013 [facility] [address] [id number] [place] [address]- 6129 26 Apr, 2013 [facility] [address] [id number] [place] [address]- 9037 Apr, [facility] [address] [id number] [place] [address]- 3262 Apr, [facility] [address] [id number] [place] [address]- 2006 27 Aug, 2012 [facility] [address] [id number] [place] [address]- 4591 18 Aug, 2012 [facility] [place] [facility] [address] [id number] [place] [address]- 5542 Aug, [facility] [place] [facility] [address] [id number] [place] [address]- 3875 Aug, [facility] [place] [facility] [address] [id number] [place] [address]- 5424 Jul, [facility] [place] [facility] [address] [id number] [place] [address]- 1735 Jun, [facility] [address] [id number] [place] [address]- 6231 Jun, [facility] [place] [facility] [address] [id number] [place] [address]- 9645 Jun, [facility] [place] [facility] [address] [facility] [id number] [place] [address]- 9372 Jun, [facility] [address] [id number] [place] [address]- 2395 May, [facility] [place] [facility] [address] [id number] [place] [address]- 0494 May, [facility] [place] [facility] [address] [id number] [place] [address]- 9403 May, [facility] [place] [facility] [address] [facility] [id number], [place] [address]- 2613 May, [facility] [place] [facility] [address] [id number][place] [address]- 7212 May, [facility] [place] [facility] [address] [id number] [place] [address]- 8783 May, [facility] [place] [facility] [address] [id number] [place] [address]- 5714 May, [facility] [place] [facility] [address] [facility] [id number], [place] [address]- 2695 Apr, [facility] [place] [facility] [address] [id number], [place] [address]- 8620 Apr, [facility] [place] [facility] [address] [id number] [place] [address]- 4752 Apr, [facility] [place] [facility] [address] [id number][place] [address]- 4736 Apr, [facility] [place] [facility] [address] [facility] [id number] [place] [address]- 0770 Apr, [facility] [place] [facility] [address] [id number], [place] [address]- 7250 Apr, [facility] [place] [facility] [address] [id number] [place] [address]- 0961 Apr, [facility] [place] [facility] [address] [facility] [id number] [place] [address]- 6223 Mar, [facility] [place] [facility] [address] [facility] [id number][place] [address]- 1998 Mar, [facility] [place] [facility] [address] [facility] [id number], [place] [address]- 9635 Mar, [facility] [place] [facility] [address] [facility] [id number], [place] [address]- 2294 Mar, [facility] [place] [facility] [address] [facility] [id number][place] [address]- 9623 Mar, [facility] [place] [facility] [address] [facility] [id number], [place] [address]- 3732 Mar, [facility] [place] [facility] [address] [facility] [id number], [place] [address]- 8132 Mar, [facility] [place] [facility] [address] [id number][place] [address]- 1458 17 Mar, 2012 [facility] [place] [facility] [address] [facility] [id number], [place] [address]- 3196 15 Mar, 2012 [facility] [place] [facility] [address] [facility] [id number][place] [address]- 5401 15 Mar, 2012 [facility] [place] [facility] [address] [id number] [place] [address]- 7144 Mar, [facility] [place] [facility] [address] [id number] [place] [address]- 1419 Mar, [facility] [place] [facility] [address] [id number] [place] [address]- 2546 Feb, [facility] [place] [facility] [address] [id number] [place] [address]- 7956 Jan, [facility] [place] [facility] [address] [id number] [place] [address]- 7395 Jan, [facility] [place] [facility] [address] [id number] [place] [address]- 0967 Jan, [facility] [place] [facility] [address] [id number] [place] [address]- 1714 Jan, [facility] [place] [facility] [address] [id number] [place] [address]- 0750 Jan, [facility] [place] [facility] [address] [id number] [place] [address]- 2749 Dec, [facility] [place] [facility] [address] [id number] [place] [address]- 3092 Dec, [facility] [place] [facility] [address] [id number] [place] [address]- 6791 Nov, [facility] [place] [facility] [address] [id number] [place] [address]- 1532 Nov, [facility] [place] [facility] [address] [id number] [place] [address]- 0735 Nov, [facility] [place] [facility] [address] [id number] [place] [address]- 7586 October, [facility] [place] [facility] [address] [id number] [place] [address]- 3076 October, [facility] [place] [facility] [address] [id number] [place] [address]- 0804 October, [facility] [address] [id number] [place] [address]- 6425 October, [facility] [place] [facility] [address] [id number] [place] [address]- 7074 October, [facility] [place] [facility] [address] [id number] [place] [address]- 8713 October, [facility] [place] [facility] [address] [id number] [place] [address]- 5009 October, [facility] [address] [id number] [place] [address]- 3856 Sep, [facility] [place] [facility] [address] [id number] [place] [address]- 0765 26 Sep, 2011 [facility] [place] [facility] [address] [id number] [place] [address]- 6908 26 Sep, 2011 [facility] [place] [facility] [address] [id number] [place] [address]- 8133 25 Sep, 2011 [facility] [place] [facility] [address] [id number] [place] [address]- 3195 24 Sep, 2011 [facility] [place] [facility] [address] [id number] [place] [address]- 5344 19 Sep, 2011 [facility] [place] [facility] [address] [id number] [place] [address]- 3924 17 Sep, 2011 [facility] [place] [facility] [address] [id number], [place] [address]- 9340 16 Sep, 2011 [facility] [place] [facility] [address] [id number] [place] [address]- 1024 16 Sep, 2011 [facility] [place] [facility] [address] [id number] [place] [address]- 5551 14 Sep, 2011 [facility] [place] [facility] [address] [id number] [place] [address]- 8604 13 Sep, 2011 [facility] [place] [facility] [address] [id number] [place] [address]- 6476 10 Sep, 2011 [facility] [address] [id number] [place] [address]- 6921 09 Sep, 2011 [facility] [place] [facility] [address] [id number] [place] [address]- 0856 27 Aug, 2011 [facility] [place] [facility] [address] [id number] [place] [address]- 7696 12 Aug, 2011 [facility] [place] [facility] [address] [id number] [place] [address] 2547 08 Aug, 2011 [facility] [place] [facility] [address] [id number] [place] [address]- 2142 06 Aug, 2011 [facility] [place] [facility] [address] [id number] [place] [address]- 3482 28 Jul, 2011 [facility] [place] [facility] [address] [id number] [place] [address]- 5404 22 Jul, 2011 [facility] [place] [facility] [address] [id number] [place] [address]- 0547 16 Jul, 2011 [facility] [place] [facility] [address] [id number] [place] [address]- 9918 15 Jul, 2011 [facility] [place] [facility] [address] [facility] [id number] [place] [address]- 5682 14 Jul, 2011 [facility] [place] [facility] [address] [id number] [place] [address]- 6041 10 Jul, 2011 [facility] [place] [facility] [address] [id number] [place] [address]- 2543 Jun, [facility] [place] [facility] [address] [id number] [place] [address]- 5286 05 Jun, 2011 [facility] [place] [facility] [address] [id number] [place] [address]- 2546 Jun, [facility] [place] [facility] [address] [facility] [id number] [place] [address]- 0716 Jun, [facility] [place] [facility] [address] [id number] [place] [address]- 2765 Jun, [facility] [place] [facility] [address] [id number] [place] [address]- 7605 May, [facility] [place] [facility] [address] [id number] [place] [address]- 8990 May, [facility] [place] [facility] [address] [id number] [place] [address]- 6545 14 May, 2011 [facility] [place] [facility] [address] [id number] [place] [address]- 2061 May, [facility] [place] [facility] [address] [id number] [place] [address]- 3802 May, [facility] [place] [facility] [address] [id number] [place] [address]- 7061 May, [facility] [place] [facility] [address] [id number] [place] [address]- 7545 May, [facility] [place] [facility] [address] [id number] [place] [address]- 7407 15 Apr, 2011 [facility] [place] [facility] [address] [id number] [place] [address]- 5342 15 Apr, 2011 [facility] [place] [facility] [address] [id number] [place] [address]- 3918 Apr, [facility] [place] [facility] [address] [id number] [place] [address]- 9208 Apr, [facility] [place] [facility] [address] [id number] [place] [address]- 8421 Apr, [facility] [place] [facility] [address] [id number] [place] [address]- 7787 Apr, [facility] [place] [facility] [address] [id number] [place] [address]- 6591 Mar, [facility] [place] [facility] [address] [id number] [place] [address]- 0293 Mar, [facility] [address] [id number] [place] [address]- 6802 Mar, [facility] [place] [facility] [address] [id number] [place] [address]- 1427 Mar, [facility] [address] [id number] [place] [address] Jan, [facility] [place] [facility] [address] [id number] [place] [address] Dec, [facility] [address] [id number] [place] [address] Dec, [facility] [place] [facility] [address] [id number] [place] [address] October, [facility] [address] [id number] [place] [address] 20 Sep, 2010 [facility] [place] [facility] [address] [id number] [place] [address] 14 Sep, 2010 [facility] [address] [id number] [place] [address] 17 Jul, 2010 [facility] [address] [id number] [place] [address] 16 Jul, 2010 [facility] [address] [id number] [place] [address] May, [facility] [place] [facility] [address] [id number] [place] [address] May, [facility] [place] [facility] [address] [id number] [place] [address] May, [facility] [place] [facility] [address] [id number] [place] [address] 06 May, 2010 [facility] [place] [facility] [address] [id number] [place] [address] Apr, [facility] [place] [facility] [address] [id number] [place] [address] Apr, [facility] [place] [facility] [address] [id number] [place] [address] Apr, [facility] [place] [facility] [address] [id number] [place] [address] Apr, [facility] [place] [facility] [address] [id number] [place] [address] Apr, [facility] [place] [facility] [address] [id number] [place] [address] Mar, [facility] [place] [facility] [address] [id number] [place] [address] 14 Mar, 2010 [facility] [place] [facility] [address] [id number] [place] [address] 13 Mar, 2010 [facility] [place] [facility] [address] [id number] [place] [address] Mar, [facility] [place] [facility] [address] [id number] [place] [address] Jan, [facility] [place] [facility] [address] [id number] [place] [address] 15 Dec, 2009 [facility] [place] [facility] [address] [id number] [place] [address] 10 Sep, 2009 [facility] [place] [facility] [address] [id number] [address] 08 May, 2009 [facility] [place] [facility] [address] [id number] [place] [address] 06 May, 2009 [facility] [place] [facility] [address] [id number] [place] [address] May, [facility] [place] [facility] [address] [id number] [place] [address] 17 Apr, 2009 [facility] [place] [facility] [address] [id number] [address] Apr, [facility] [address] [facility] [id number] [address] Apr, [facility] [address] [id number] [address] Apr, [facility] [address] [id number] [address] Apr, [facility] [address] [id number] [address] Mar, [facility] [address] [id number], [place] [address] Mar, [facility] [address] [id number], [place] [address] Jul, IMMUNIZATIONS No Known Immunizations SOCIAL HISTORY [...] Dr. Daniel 08/2017 Surgical History nephrectomy 03/[address] Roman-drained fluid and tissue removal from where she had her hernia placed-had a drain placed 01/2018 Surgical History had drain removed from surgery the January before. 03/2018 Hospitalization History Cellulitis-[facility]ia [facility]3] 12/20/15 Hospitalization History [facility]- Abd pain 03/07/2017 Hospitalization History [facility]- Abd pain 03/14/2017 Hospitalization History [facility]- No bowel movement, rash 04/13/2017 Hospitalization History [facility]- Abd pain r/t kidney surgery on 04/17/2017 Hospitalization History [facility]- Abd pain r/t kidney surgery on 04/18/2017 Hospitalization History [facility]- Lower abd pain 04/30/2017 Hospitalization History [facility]- Cannot urinate 05/30/2017 Hospitalization History [facility]- Pancreatitis Sx 06/29/2017 Hospitalization History [facility]- Stomach pain 07/22/2017 Hospitalization History [facility]- Left side pain 08/12/2017 Hospitalization [facility]- Incision site infection 08/30/2017 Hospitalization History [facility]- Post Op Seroma/Hematoma Left Abdomen. Discharged 09/04/17- Dr Daniel 09/02/2017 Hospitalization History [facility]- Right shoulder and back pain 2017 Hospitalization History [facility]- Shoulder/Back pain 11/11/2017 Hospitalization History [facility]- Right shoulder blade pain 12/04/2017 Hospitalization History [facility]- C-Diff 12/13/2017 Hospitalization History C diff et MRSA 12/27/2017
--- OUTSIDE RECORDS SUMMARY | 2018-04-29 10:23 | XMS REPORT ---
Author Author CARMEN GIBBS Organization [facility] Address [address] [place] [address] Care Team Providers Care Director Medical Affairs Name Role Phone SAICORTNEY KOENIGHANY Unavailable PROBLEMS Type Condition ICD9-CM Code JOK85-SD Code Onset Dates Condition Status SNOMED Code Problem Atelectasis J98.11 Active 70789810 Problem Restless leg syndrome G25.81 Active 53304701 Problem Trichotillomania F63.3 Active 83743346 Problem Primary osteoarthritis of right knee M17.11 Active 564110383957481 Problem Intestinal malabsorption, unspecified K90.9 Active 40717052 Problem Chronic post-traumatic stress disorder (PTSD) F43.12 Active 950650934 Problem Generalized social phobia F40.11 Active 57343420 Problem Chronic fatigue R53.82 Active 60804310 Problem Moderate episode of recurrent major depressive disorder F33.1 Active 204378182 Problem Chronic tension-type headache, intractable G44.221 Active 389878628 Problem Morbid (severe) obesity due to excess calories E66.01 Active 998170474 Problem Nodule of left lung R91.1 Active 501932888 Problem History of renal cell carcinoma Z85.528 Active 717344082 Problem FH: polycystic ovary Z84.2 Active 383595615 Problem Chronic pancreatitis K86.1 Active 195972890 Problem Hyperlipidemia, mixed E78.2 Active 544788647 Problem Asthma J45.909 Active 330220610 Problem Hirsuties L68.0 Active 750401219 Problem Polydipsia R63.1 Active 69143598 ALLERGIES No Information ENCOUNTERS Encounter Location Date Diagnosis [facility] [id number] [address] Apr, [facility] [id number] [address] Mar, [facility] [address] [address] Mar, BMI 45.0-49.9, adult Z68.42 and Pimples R23.8 [facility] [id number] [place] [address] 71372- 4036 Mar, [facility] [id number] [place] [address] 98124- 7557 Mar, [facility] [id number] [place] [address] 52190- 9108 Mar, Decreased urination R34 ; Chronic fatigue R53.82 ; Peripheral edema R60.9 ; Diarrhea, unspecified type R19.7 ; Non-intractable vomiting with nausea, unspecified vomiting type R11.2 ; BMI 45.0-49.9, adult Z68.42 and Chronic post-traumatic stress disorder (PTSD) F43.12 [place] [id number] [place] [address] 95451- 0196 Mar, Intestinal malabsorption, unspecified K90.9 ; Diarrhea, unspecified R19.7 ; Urinary urgency R39.15 ; Rectal bleeding K62.5 and Decreased urine output R34 [place] [id number] [place] [address] 60191- 8114 Mar, Decreased urine output R34 [place] [id number] [place] [address] 05515- 6421 Mar, Rectal bleeding K62.5 [place] [id number] [place] [address] 99557- 0710 Mar, Rectal bleeding K62.5 [place] [id number] [place] [address] 66345- 6292 Mar, Urinary urgency R39.15 [place] [id number] [place] [address] 03409- 8761 Mar, Urinary urgency R39.15 [place] [id number] [place] [address] 30574- 5809 Mar, Primary osteoarthritis of right knee M17.11 and BMI 45.0- 49.9, adult Z68.42 [facility] [id number] [place] [address] 11065- 7217 Mar, [facility] [id number] [place] [address] 62835- 7069 Feb, Left upper arm pain M79.622 [facility] [id number] [place] [address] 70274- 4996 Feb, [facility] [id number] [place] [address] 91665- 2901 Jan, Acute pain of right knee M25.561 ; Right upper quadrant abdominal pain R10.11 and BMI 45.0-49.9, adult Z68.42 [facility] [id number] [place] [address] 46909- 9778 Jan, [facility] [id number] [place] [address] 40203- 2568 Jan, [facility] [id number] [place] [address] 35654- 6553 Dec, [facility] [id number] [place] [address] 89743- 3520 Dec, Intestinal malabsorption, unspecified K90.9 and Diarrhea, unspecified R19.7 [facility] [id number] [place] [address] 27612- 6702 Dec, [facility] [id number] [place] [address] 92141- 3288 Dec, Strep throat J02.0 ; Intestinal malabsorption, unspecified K90.9 ; Diarrhea, unspecified R19.7 ; Postoperative seroma involving digestive system after non-digestive system procedure K91.873 ; Hyperlipidemia, mixed E78.2 and BMI 45.0-49.9, adult Z68.42 [facility] [id number] [place] [address] 93280- 8884 Dec, [facility] [address] [address] 0735 Dec, Nausea R11.0 [facility] [address] [address] 4362 Dec, [facility] [address] [address] Dec, Sore throat J02.9 ; Strep throat J02.0 and BMI 45.0-49.9, adult Z68.42 [facility] [address] [address] 0735 Dec, [facility] [address] [address] 3211 Dec, [facility] [address] [address]- 9896 Dec, [facility] [address] [address]- 7935 Dec, [facility] [address] [address]- 0446 Dec, [facility] [address] [address]- 0326 Dec, [facility] [address] [address]- 9015 Dec, [facility] [address] [address]- 2195 Dec, [facility] [address] [address]- 9636 Dec, Clostridium difficile colitis A04.72 ; Intractable vomiting with nausea, unspecified vomiting type R11.2 and BMI 45.0-49.9, adult Z68.42 [facility] [address] [address] 2014 Dec, [facility] [address] [address]- 0977 Nov, [facility] [id number] [place] [address] 55634- 5152 Nov, [facility] [id number] [place] [address] 65659- 8801 Nov, [address] [id number] [place] [address] 26028- 8939 Nov, [facility] [id number] [place] [address] 89876 -5661 Nov, [place] [id number] [place] [address] 11188- 3050 Nov, Hyperlipidemia, mixed E78.2 [facility] [address] [address] Nov, Acute suppurative otitis media of right ear without spontaneous rupture of tympanic membrane, recurrence not specified H66.001 and BMI 45.0-49.9, adult Z68.42 [place] [id number] [place] [address] 92938- 9752 Nov, Hyperlipidemia, mixed E78.2 [place] [address] [place] [address] 05768- 6501 Nov, [address] [id number] [place] [address] 33611- 6838 Nov, [address] [id number] [place] [address] 34230- 6952 Nov, Nodule of left lung R91.1 [place] [id number] [place] [address] 51002- 1970 Nov, Medicare annual wellness visit, initial Z00.00 [...] adult Z68.42 and Encounter for immunization Z23 [address] [address] 68782- 8022 October, [address] [address] 84779- 6980 October, Nodule of left lung R91.1 [address] [address] 12922- 8668 October, Nodule of left lung R91.1 [address] [address] 38323- 5094 October, Recurrent major depressive disorder, in partial remission F33.41 ; Restless leg syndrome G25.81 ; Generalized social phobia F40.11 ; Chronic post-traumatic stress disorder (PTSD) F43.12 ; BMI 45.0-49.9, adult Z68.42 and Trichotillomania F63.3 [address] [address] 20013- 1375 October, [place] [id number] [place] [address] 34760- 1075 Sep, Chronic fatigue R53.82 and BMI 45.0-49.9, adult Z68.42 [place] [id number] [place] [address] 19137- 8065 Aug, [place] [address] 71806- 3797 Jul, Restless leg syndrome G25.81 and B12 deficiency E53.8 [place] [address] 01847- 7868 Jul, [address] [address] 13789- 0337 Jul, [facility] [address] [address]- 4629 Jun, [address] [place] [address] [place] [address] 071545- 7206 Jun, Fatigue, unspecified type R53.83 ; History of renal cell carcinoma Z85.528 ; Chronic pancreatitis K86.1 ; Restless leg syndrome G25.81 ; Dark urine R82.99 and BMI 45.0-49.9, adult Z68.42 [address] [address], [place] [address]- 9635 Jun, [address] [id number] [place] [address] 99301- 4138 Jun, [address] [place] [address]- 1574 Jun, [place], [place] [address]- 3000 Jun, [facility] [id number] [address]- 1264 May, Chronic post-traumatic stress disorder (PTSD) F43.12 ; Moderate episode of recurrent major depressive disorder F33.1 ; Trichotillomania F63.3 and Generalized social phobia F40.11 [address], [place] [address]- 7210 May, [place] [id number] [address]- 4636 May, Chronic post-traumatic stress disorder (PTSD) F43.12 ; Moderate episode of recurrent major depressive disorder F33.1 ; Trichotillomania F63.3 and Generalized social phobia F40.11 [place] [id number], [place] [address]- 4850 07 May, 2017 Hyperlipidemia, mixed E78.2 ; Morbid (severe) obesity due to excess calories E66.01 ; Chronic post-traumatic stress disorder (PTSD) F43.12 ; Moderate episode of recurrent major depressive disorder F33.1 ; Trichotillomania F63.3 and Generalized social phobia F40.11 [facility] [address] [place] [address] 19781- 4703 30 Apr, 2017 [facility] [id number] [place] [address] 09810- 3498 Apr, Hyperlipidemia, mixed E78.2 ; Morbid (severe) obesity due to excess calories E66.01 ; Chronic post-traumatic stress disorder (PTSD) F43.12 ; Moderate episode of recurrent major depressive disorder F33.1 ; Trichotillomania F63.3 and Generalized social phobia F40.11 [facility] [id number] [place] [address] 34512- 8131 Apr, Trichotillomania F63.3 ; Generalized social phobia F40.11 ; Chronic post-traumatic stress disorder (PTSD) F43.12 and Moderate episode of recurrent major depressive disorder F33.1 [place] [id number] [place] [address] 42153- 3950 Apr, [facility] [id number] [place] [address] 48871- 3411 Apr, [facility] [address] [place] [address] 70043- 8000 Mar, Moderate episode of recurrent major depressive disorder F33.1 ; Trichotillomania F63.3 ; Chronic post-traumatic stress disorder (PTSD) F43.12 ; Generalized social phobia F40.11 and Restless leg syndrome G25.81 [facility] [id number] [place] [address] 83412- 1281 Mar, [facility] [id number] [place] [address] 13968- 1010 Mar, [facility] [id number] [place] [address] 90988- 4825 Feb, Left kidney mass N28.89 [facility] [id number] [place] [address] 00996- 0097 Jan, [facility] [id number] [place] [address] 58425- 2716 Dec, Polydipsia R63.1 ; Chronic pancreatitis K86.1 and Fatigue, unspecified type R53.83 [facility] [id number] [place] [address] 48710- 2570 Nov, [facility] [id number] [place] [address] 41891- 7065 Nov, [facility] [id number] [place] [address] 43354- 9601 Nov, Headache around the eyes R51 [facility] [id number] [place] [address] 20973- 7901 Nov, [facility] [id number] [place] [address] 77993- 7036 October, STD exposure Z20.2 [facility] [id number] [place] [address] 56698- 6755 October, STD exposure Z20.2 [facility] [id number] [place] [address] 45902- 1071 October, Chronic post-traumatic stress disorder (PTSD) F43.12 ; Generalized social phobia F40.11 ; Trichotillomania F63.3 and Restless leg syndrome G25.81 [facility] [address] [place] [address] 53198- 7511 October, [facility] [id number] [place] [address] 84530- 2378 Sep, [facility] [id number] [place] [address] 90083- 6407 Aug, [facility] [id number] [place] [address] 61531- 4786 Aug, [place] [id number] [place] [address] 30612- 4974 Aug, Neck mass R22.1 [id number] [place] [address] 02281- 2846 03 Aug, 2016 Atelectasis J98.[address] 96007- 0470 28 Jul, 2016 Hyperlipidemia, mixed E78.2 ; Atypical pneumonia J18.9 and Neck mass R22.1 [place] [id number] [place] [address] 72679- 5662 15 Jul, 2016 Hemoptysis R04.2 [place] [id number] [place] [address] 57161- 8534 08 Jul, 2016 Acute non-recurrent pansinusitis J01.40 ; Hemoptysis R04.2 ; Polydipsia R63.1 and Malaise R53.81 [facility] [id number] [place] [address] 92693 -0402 May, Other viral agents as the cause of diseases classified elsewhere B97.89 and Acute upper respiratory infection, unspecified J06.9 [facility] [id number] [place] [address] 28512 -9858 Mar, Nausea R11.0 [facility] [id number] [place] [address] 92484 -5184 28 Dec, 2015 Hives L50.9 [place] [id number] [place] [address] 90946- 3607 14 Dec, 2015 [facility] [address] 43131 -8792 10 Dec, 2015 Cutaneous abscess of limb, unspecified L02.419 ; Cellulitis of unspecified part of limb L03.119 ; Encounter for incision and drainage procedure Z01.89 and Encounter for recheck of abscess following incision and drainage Z09 [facility] [id number] [place] [address] 35861 -7118 09 Dec, 2015 Abscess of leg, right L02.415 [place] [id number] [place] [address] 25304- 1182 Dec, Cellulitis of unspecified part of limb L03.119 and Cutaneous abscess of limb, unspecified L02.419 [place] [id number] [place] [address] 00229- 5098 Dec, [place] [id number] [place] [address] 12071- 2533 Dec, [facility] [place] [id number] [place] [address] 94749 -2624 Aug, [place] [id number] [place] [address] 46116- 2901 Aug, [facility] [id number] [place] [address] 97687 -8411 Jul, Pain in unspecified wrist M25.539 and Back pain, thoracic M54.6 [facility] [id number] [place] [address] 04567 -7908 Jun, Strain of right wrist, initial encounter S66.911A [place] [id number] [place] [address] 35977- 0420 Jun, Chronic pancreatitis, unspecified pancreatitis type K86.1 ; Hirsuties L68.0 ; Morbid (severe) obesity due to excess calories E66.01 ; Chronic pancreatitis K86.1 and Asthma J45.909 [place] [id number] [place] [address] 08708- 8726 May, [place] [id number] [place] [address] 14028- 1050 May, Hyperlipidemia, mixed E78.2 and Muscle spasm of back M62.830 [place] [id number] [place] [address] 85400- 8098 Apr, [facility] [id number] [place] [address] 37243- 1105 Apr, Torticollis M43.6 [facility] [id number] [place] [address] 872225- 4351 Apr, Right-sided thoracic back pain M54.6 [facility] [address] 236840- 5110 Mar, Rash R21 [facility] [address] 72192- 1949 Mar, [facility] [address] 38037- 2893 Jan, [facility] [id number] [place] [address] 81277- 5146 Dec, [facility] [id number] [place] [address] 43979- 1834 Dec, Urinary frequency 788.41 and Nocturia more than twice per night 788.43 [facility] [id number] [place] [address] 36219- 5060 Nov, [facility] [id number] [place] [address] 73522- 1088 Nov, [facility] [id number] [place] [address] 54873- 6768 Nov, Abdominal pain 789.00 [facility] [id number] [place] [address] 73050- 5031 October, TDAP DX V06.1 [facility] [address] 69417- 1670 October, [facility] [id number] [place] [address] 627087- 7184 October, Disturbance of skin sensation 782.0 ; Wrist pain, right 719.43 ; Hyperlipidemia 272.4 and Skin lesion of face 709.9 [facility] [place] [facility] [address] [id number] [place] [address]- 7033 14 Sep, 2014 [facility] [address] [id number] [place] [address]- 1205 13 Sep, 2014 [facility] [address] [facility] [id number] [place] [address]- 3725 26 Aug, 2014 [facility] [address] [id number] [place] [address]- 1359 26 Aug, 2014 [facility] [address] [id number] [place] [address]- 5301 23 Aug, 2014 [facility] [place] [facility] [address] [facility] [id number] [place] [address]- 5828 23 Aug, 2014 [facility] [address] [facility] [id number] [place] [address]- 5451 16 Aug, 2014 [facility] [place] [facility] [address] [facility] [id number] [address]- 3382 16 Aug, 2014 [facility] [address] [facility] [id number] [place] [address]- 4378 14 Aug, 2014 [facility] [place] [facility] [address] [facility] [id number] [place] [address]- 9482 14 Aug, 2014 [facility] [address] [facility] [id number], [place] [address] 11 Aug, 2014 [facility] [place] [facility] [address] [id number], [place] [address] 11 Aug, 2014 [facility] [place] [facility] [address] [id number], [place] [address] 04 Aug, 2014 [facility] [place] [facility] [address] [facility] [id number], [place] [address] 04 Aug, 2014 [facility] [place] [facility] [address] [facility] [id number], [place] [address] Aug, [facility] [place] [facility] [address] [facility] [id number] [place] [address] Aug, [facility] [place] [facility] [address] [id number] [place] [address] Jul, [facility] [place] [facility] [address] [id number] [place] [address] Jul, 2014 [facility] [place] [facility] [address] [id number] [place] [address] Jul, 2014 [facility] [place] [facility] [address] [id number] [place] [address] Jul, 2014 [facility] [place] [facility] [address] [id number] [place] [address] Jul, [facility] [place] [facility] [address] [facility] [id number] [place] [address] Jul, [facility] [place] [facility] [address] [id number] [place] [address] Jun, [facility] [place] [facility] [address] [id number] [place] [address]- [address] Jun, [facility] [place] [facility] [address] [id number] [place] [address] Jun, [facility] [place] [facility] [address] [facility] [id number] [place] [address] Jun, [facility] [place] [facility] [address] [id number] [place] [address]- [address] Jun, [facility] [place] [facility] [address] [id number] [place] [address] 25[address] Jun, [facility] [place] [facility] [address] [id number] [place] [address] 2546 Jun, [facility] [place] [facility] [address] [id number] [place] [address] 2546 Jun, [facility] [place] [facility] [address] [id number] [place] [address] May, [facility] [place] [facility] [address] [id number] [place] [address] May, [facility] [place] [facility] [address] [id number] [place] [address] May, [facility] [place] [facility] [address] [id number] [place] [address] May, [facility] [place] [facility] [address] [id number] [place] [address] May, [facility] [place] [facility] [address] [id number] [place] [address] May, [facility] [place] [facility] [address] [id number] [place] [address] May, [facility] [place] [facility] [address] [id number] [place] [address] May, [facility] [place] [facility] [address] [id number] [place] [address] May, [facility] [place] [facility] [address] [id number] [place] [address] May, [facility] [place] [facility] [address] [id number] [place] [address] May, [facility] [place] [facility] [address] [id number] [place] [address] May, [facility] [place] [facility] [address] [id number], [place] [address] Apr, [facility] [place] [facility] [address] [address] [id number] [place] [address] Apr, [facility] [place] [facility] [address] [id number] [place] [address] 8618 Apr, [facility] [place] [facility] [address] [id number] [place] [address] 7779 Apr, [facility] [place] [facility] [address] [id number] [place] [address] 6861 24 Apr, 2014 [facility] [place] [facility] [address] [id number] [place] [address] 0137 24 Apr, 2014 [facility] [place] [facility] [address] [id number] [place] [address] 9561 Apr, [facility] [place] [facility] [address] [id number] [place] [address] 2438 Apr, [facility] [place] [facility] [address] [id number] [place] [address] 9943 Apr, [facility] [place] [facility] [address] [id number] [place] [address] 7902 Apr, [facility] [place] [facility] [address] [id number] [place] [address] 6561 Apr, [facility] [place] [facility] [address] [id number] [place] [address] 7515 Apr, [facility] [place] [facility] [address] [id number] [place] [address] 6766 Mar, [facility] [place] [facility] [address] [id number] [place] [address]- 3297 Mar, [facility] [place] [facility] [address] [id number] [place] [address]- 8206 Mar, [facility] [place] [facility] [address] [id number] [place] [address]- 8507 Mar, [facility] [place] [facility] [address] [id number] [place] [address]- 3693 10 Feb, 2014 [facility] [place] [facility] [address] [id number] [place] [address]- 9241 10 Feb, 2014 [facility] [place] [facility] [address] [id number] [place] [address]- 1316 05 Feb, 2014 [facility] [place] [facility] [address] [id number] [place] [address]- 1579 05 Feb, 2014 [facility] [place] [facility] [address] [id number] [place] [address]- 7177 Feb, [facility] [place] [facility] [address] [id number] [place] [address]- 7515 Feb, [facility] [place] [facility] [address] [id number] [place] [address] 6115 Jan, [facility] [place] [facility] [address] [id number] [place] [address]- 5379 Jan, [facility] [place] [facility] [address] [id number] [place] [address]- 1370 Jan, [facility] [place] [facility] [address] [id number] [place] [address]- 8780 Jan, [facility] [place] [facility] [address] [id number] [place] [address]- 5853 Jan, [facility] [place] [facility] [address] [id number] [place] [address]- 4476 Jan, [facility] [place] [facility] [address] [id number] [place] [address]- 6867 Jan, [facility] [place] [facility] [address] [id number] [place] [address]- 6985 Jan, [facility] [place] [facility] [address] [id number] [place] [address]- 8886 Jan, [facility] [place] [facility] [address] [id number] [place] [address] 0359 Jan, [facility] [place] [facility] [address] [id number] [place] [address]- 9502 Jan, [facility] [place] [facility] [address] [id number] [place] [address]- 7075 Jan, [facility] [place] [facility] [address] [id number] [place] [address]- 7439 Jan, [facility] [place] [facility] [address] [id number] [place] [address]- 1116 Jan, [facility] [place] [facility] [address] [id number] [place] [address]- 8268 Dec, [facility] [place] [facility] [address] [id number] [place] [address]- 4589 Dec, [facility] [place] [facility] [address] [id number] [place] [address]- 5267 Dec, [facility] [place] [facility] [address] [id number] [place] [address]- 1657 Dec, [facility] [place] [facility] [address] [id number] [place] [address]- 4615 Nov, [facility] [place] [facility] [address] [id number] [place] [address]- 1454 Nov, [facility] [place] [facility] [address] [id number] [place] [address]- 1409 Nov, [facility] [place] [facility] [address] [id number] [place] [address]- 2370 Nov, [facility] [place] [facility] [address] [id number] [place] [address]- 3613 Nov, [facility] [place] [facility] [address] [id number] [place] [address]- 3870 October, [facility] [place] [facility] [address] [id number] [place] [address]- 6533 October, [facility] [place] [facility] [address] [id number] [place] [address]- 4595 October, [facility] [place] [facility] [address] [id number] [place] [address]- 6123 October, [facility] [place] [facility] [address] [id number] [place] [address]- 8616 October, [facility] [place] [facility] [address] [id number] [place] [address]- 1176 October, [facility] [place] [facility] [address] [id number] [place] [address]- 1856 October, [facility] [address] [id number] [place] [address]- 9915 October, [facility] [address] [id number] [place] [address]- 6387 October, [facility] [address] [id number] [place] [address]- 4804 October, [facility] [address] [id number] [place] [address]- 5977 October, [facility] [address] [id number] [place] [address] 3349 October, [facility] [address] [id number] [place] [address]- 0487 October, [facility] [address] [id number] [place] [address]- 3277 October, [facility] [address] [id number] [place] [address]- 7101 Sep, [facility] [address] [id number] [place] [address]- 0362 Sep, [facility] [address] [id number] [place] [address]- 5181 Sep, [facility] [place] [facility] [address] [id number] [place] [address]- 6366 Sep, [facility] [address] [id number] [place] [address]- 3483 Sep, [facility] [place] [facility] [address] [id number] [place] [address]- 9770 Sep, [facility] [place] [facility] [address] [id number] [place] [address]- 6462 Sep, [facility] [address] [id number] [place] [address]- 7249 Sep, [facility] [place] [facility] [address] [id number] [place] [address]- 4199 Sep, [facility] [place] [facility] [address] [id number] [place] [address]- 5687 Sep, [facility] [place] [facility] [address] [id number] [place] [address]- 4775 Sep, [facility] [place] [facility] [address] [id number] [place] [address]- 4196 Sep, [facility] [place] [facility] [address] [id number] [place] [address]- 8299 Sep, [facility] [place] [facility] [address] [id number] [place] [address]- 6868 Sep, [facility] [place] [facility] [address] [id number] [place] [address]- 4337 Sep, [facility] [place] [facility] [address] [id number] [place] [address]- 4432 Aug, [facility] [place] [facility] [address] [id number] [place] [address]- 8043 Aug, [facility] [place] [facility] [address] [id number] [place] [address]- 8146 Aug, [facility] [place] [facility] [address] [id number] [place] [address]- 4289 Aug, [facility] [place] [facility] [address] [id number] [place] [address]- 9458 Jul, [facility] [place] [facility] [address] [id number] [place] [address]- 1426 Jul, [facility] [place] [facility] [address] [id number] [place] [address]- 1159 Jul, [facility] [place] [facility] [address] [id number] [place] [address]- 0007 Jul, [facility] [place] [facility] [address] [id number] [place] [address]- 2644 15 Jun, 2013 [facility] [address] [id number] [place] [address]- 5704 15 Jun, 2013 [facility] [address] [id number] [place] [address]- 5149 15 Jun, 2013 [facility] [address] [id number] [place] [address]- 4414 15 Jun, 2013 [facility] [address] [id number] [place] [address]- 3173 10 Jun, 2013 [facility] [address] [id number] [place] [address]- 1850 Jun, [facility] [address] [id number] [place] [address]- 0971 08 Jun, 2013 [facility] [address] [facility] [id number] [place] [address]- 9241 08 Jun, 2013 [facility] [address] [id number] [place] [address]- 6617 20 May, 2013 [facility] [address] [id number] [place] [address]- 1903 20 May, 2013 [facility] [address] [facility] [id number] [place] [address]- 3797 18 May, 2013 [facility] [address] [id number] [place] [address]- 5918 18 May, 2013 [facility] [address] [facility] [id number] [place] [address]- 4471 17 May, 2013 [facility] [place] [facility] [address] [id number] [place] [address] 17 May, 2013 [facility] [place] [facility] [address] [facility] [id number] [place] [address] 17 May, 2013 [facility] [place] [facility] [address] [facility] [id number] [place] [address]- 6857 17 May, 2013 [facility] [place] [facility] [address] [id number] [place] [address]- 9352 16 May, 2013 [facility] [place] [facility] [address] [id number] [place] [address]- 9226 16 May, 2013 [facility] [place] [facility] [address] [id number] [place] [address] 2546 14 May, 2013 [facility] [place] [facility] [address] [id number] [place] [address]- 9806 14 May, 2013 [facility] [place] [facility] [address] [id number] [place] [address]- 3708 13 May, 2013 [facility] [place] [facility] [address] [id number] [place] [address]- 3459 13 May, 2013 [facility] [place] [facility] [address] [id number] [place] [address]- 2077 12 May, 2013 [facility] [place] [facility] [address] [id number] [place] [address]- 5663 12 May, 2013 [facility] [address] [id number] [place] [address]- 9716 11 May, 2013 [facility] [place] [facility] [address] [id number] [place] [address]- 7420 11 May, 2013 [facility] [place] [facility] [address] [id number] [place] [address]- 3911 26 Apr, 2013 [facility] [place] [facility] [address] [id number] [place] [address]- 8471 26 Apr, 2013 [facility] [place] [facility] [address] [id number] [place] [address]- 5559 Apr, [facility] [place] [facility] [address] [id number] [place] [address]- 6289 Apr, [facility] [place] [facility] [address] [id number] [place] [address]- 4272 27 Aug, 2012 [facility] [place] [facility] [address] [id number] [place] [address]- 9457 Aug, [facility] [address] [id number] [place] [address]- 9021 Aug, [facility] [place] [facility] [address] [id number] [place] [address]- 7572 Aug, [facility] [place] [facility] [address] [facility] [id number] [place] [address]- 9750 Jul, [facility] [place] [facility] [address] [id number] [place] [address]- 3963 Jun, [facility] [place] [facility] [address] [id number] [place] [address]- 8417 Jun, [facility] [place] [facility] [address] [id number] [place] [address]- 2160 Jun, [facility] [place] [facility] [address] [id number] [place] [address]- 0713 Jun, [facility] [place] [facility] [address] [id number] [place] [address]- 1222 May, [facility] [place] [facility] [address] [id number] [place] [address]- 4823 May, [facility] [place] [facility] [address] [id number] [place] [address]- 6376 May, [facility] [place] [facility] [address] [id number], [place] [address]- 8887 May, [facility] [place] [facility] [address] [id number], [place] [address]- 3467 May, [facility] [place] [facility] [address] [id number] [place] [address]- 1136 May, [facility] [place] [facility] [address] [id number] [place] [address]- 8482 May, [facility] [place] [facility] [address] [id number] [place] [address]- 1384 Apr, [facility] [place] [facility] [address] [id number] [place] [address]- 6799 Apr, [facility] [place] [facility] [address] [id number] [place] [address]- 7277 Apr, [facility] [place] [facility] [address] [id number] [place] [address]- 4817 Apr, [facility] [place] [facility] [address] [id number] [place] [address]- 6602 Apr, [facility] [place] [facility] [address] [id number] [place] [address]- 2906 Apr, [facility] [place] [facility] [address] [id number] [place] [address]- 1490 Apr, [facility] [place] [facility] [address] [id number] [place] [address]- 0436 Mar, [facility] [place] [facility] [address] [id number] [place] [address]- 0604 Mar, [facility] [place] [facility] [address] [id number] [place] [address]- 6652 Mar, [facility] [place] [facility] [address] [id number] [place] [address]- 2417 Mar, [facility] [place] [facility] [address] [facility] [id number], [place] [address]- 2272 Mar, [facility] [place] [facility] [address] [id number] [place] [address]- 1471 Mar, [facility] [place] [facility] [address] [id number], [place] [address]- 9941 Mar, [facility] [place] [facility] [address] [id number] [place] [address]- 7958 17 Mar, 2012 [facility] [place] [facility] [address] [facility] [id number] [place] [address]- 7084 15 Mar, 2012 [facility] [place] [facility] [address] [id number], [place] [address]- 3753 Mar, [facility] [place] [facility] [address] [id number] [place] [address]- 4154 Mar, [facility] [place] [facility] [address] [id number] [place] [address]- 3254 Mar, [facility] [place] [facility] [address] [id number] [place] [address]- 2062 Feb, [facility] [place] [facility] [address] [id number] [place] [address]- 7902 Jan, [facility] [place] [facility] [address] [id number] [place] [address]- 2912 Jan, [facility] [place] [facility] [address] [id number] [place] [address]- 7751 Jan, [facility] [place] [facility] [address] [id number] [place] [address]- 8602 Jan, [facility] [place] [facility] [address] [id number] [place] [address]- 9956 Jan, [facility] [place] [facility] [address] [id number] [place] [address]- 9074 Dec, [facility] [place] [facility] [address] [id number] [place] [address]- 4485 Dec, [facility] [place] [facility] [address] [id number] [place] [address]- 2832 Nov, [facility] [place] [facility] [address] [id number] [place] [address]- 6022 Nov, [facility] [place] [facility] [address] [id number] [place] [address]- 3783 Nov, [facility] [place] [facility] [address] [id number] [place] [address]- 7129 October, [facility] [place] [facility] [address] [id number] [place] [address]- 3356 October, [facility] [place] [facility] [address] [id number] [place] [address]- 6372 October, [facility] [address] [id number] [place] [address]- 7987 October, [facility] [place] [facility] [address] [id number] [place] [address]- 4373 October, [facility] [address] [id number] [place] [address]- 5908 October, [facility] [place] [facility] [address] [id number] [place] [address]- 9656 October, [facility] [address] [id number] [place] [address]- 5320 26 Sep, 2011 [facility] [place] [facility] [address] [id number] [place] [address]- 5206 26 Sep, 2011 [facility] [address] [id number] [place] [address]- 7562 26 Sep, 2011 [facility] [place] [facility] [address] [id number] [place] [address]- 6558 25 Sep, 2011 [facility] [address] [id number] [place] [address]- 2015 24 Sep, 2011 [facility] [place] [facility] [address] [id number] [place] [address]- 2467 19 Sep, 2011 [facility] [place] [facility] [address] [id number] [place] [address]- 3039 17 Sep, 2011 [facility] [place] [facility] [address] [id number] [place] [address]- 9041 16 Sep, 2011 [facility] [place] [facility] [address] [id number] [place] [address]- 1656 16 Sep, 2011 [facility] [place] [facility] [address] [id number] [place] [address]- 0078 14 Sep, 2011 [facility] [place] [facility] [address] [id number] [place] [address]- 8676 13 Sep, 2011 [facility] [place] [facility] [address] [id number] [place] [address]- 8679 10 Sep, 2011 [facility] [place] [facility] [address] [id number] [place] [address]- 8086 09 Sep, 2011 [facility] [place] [facility] [address] [id number] [place] [address]- 2025 27 Aug, 2011 [facility] [place] [facility] [address] [id number] [place] [address] 12 Aug, 2011 [facility] [place] [facility] [address] [id number] [place] [address] 08 Aug, 2011 [facility] [place] [facility] [address] [id number] [place] [address] 06 Aug, 2011 [facility] [place] [facility] [address] [facility] [id number] [place] [address] 28 Jul, 2011 [facility] [place] [facility] [address] [id number] [place] [address] 22 Jul, 2011 [facility] [place] [facility] [address] [id number] [place] [address] 16 Jul, 2011 [facility] [place] [facility] [address] [facility] [id number] [place] [address] 15 Jul, 2011 [facility] [place] [facility] [address] [facility] [id number] [place] [address] 14 Jul, 2011 [facility] [place] [facility] [address] [id number] [place] [address] 1654 10 Jul, 2011 [facility] [place] [facility] [address] [id number] [place] [address] Jun, [facility] [place] [facility] [address] [id number] [place] [address] Jun, [facility] [place] [facility] [address] [id number] [place] [address] Jun, [facility] [place] [facility] [address] [id number] [place] [address] Jun, [facility] [place] [facility] [address] [id number] [place] [address] Jun, [facility] [place] [facility] [address] [id number] [place] [address] May, [facility] [place] [facility] [address] [id number] [place] [address] May, [facility] [place] [facility] [address] [id number] [place] [address] 14 May, 2011 [facility] [place] [facility] [address] [id number] [place] [address]- [address]67 14 May, 2011 [facility] [place] [facility] [address] [id number] [place] [address] 1665 May, [facility] [place] [facility] [address] [id number] [place] [address] May, [facility] [place] [facility] [address] [id number] [place] [address] 05 May, 2011 [facility] [place] [facility] [address] [id number] [place] [address] 8864 15 Apr, 2011 [facility] [place] [facility] [address] [id number] [place] [address] 84[address] 15 Apr, 2011 [facility] [place] [facility] [address] [id number] [place] [address] Apr, [facility] [place] [facility] [address] [id number] [place] [address]28 Apr, [facility] [place] [facility] [address] [id number] [place] [address] Apr, [facility] [place] [facility] [address] [id number] [place] [address] 3035 Apr, [facility] [place] [facility] [address] [id number] [place] [address] Mar, [facility] [place] [facility] [address] [id number] [place] [address] Mar, [facility] [address] [id number] [place] [address]36 Mar, [facility] [place] [facility] [address] [id number] [place] [address] 3026 Mar, [facility] [address] [id number] [place] [address]78 Jan, [facility] [place] [facility] [address] [id number] [place] [address] 9689 Dec, [facility] [address] [id number] [place] [address] 2494 Dec, [facility] [address] [id number] [place] [address] October, [facility] [address] [id number] [place] [address] Sep, [facility] [address] [id number] [place] [address] 6090 14 Sep, 2010 [facility] [address] [id number] [place] [address]- [address] Jul, [facility] [address] [id number] [place] [address]- 8615 16 Jul, 2010 [facility] [address] [id number] [place] [address]- 7985 May, [facility] [address] [id number] [place] [address] May, [facility] [place] [facility] [address] [id number] [place] [address]- 9676 May, [facility] [place] [facility] [address] [id number] [place] [address] May, [facility] [place] [facility] [address] [id number] [place] [address]- 2796 Apr, [facility] [place] [facility] [address] [id number] [place] [address]- 9655 Apr, [facility] [place] [facility] [address] [id number] [place] [address]- [address] Apr, [facility] [place] [facility] [address] [id number] [place] [address] 8906 Apr, [facility] [place] [facility] [address] [id number] [place] [address]- 0947 Apr, [facility] [place] [facility] [address] [id number] [place] [address] 9820 21 Mar, 2010 [facility] [place] [facility] [address] [id number] [place] [address]- 5519 14 Mar, 2010 [facility] [place] [facility] [address] [id number] [place] [address] 7055 13 Mar, 2010 [facility] [place] [facility] [address] [id number] [address] Mar, [facility] [place] [facility] [address] [id number] [place] [address] Jan, [facility] [place] [facility] [address] [id number], [place] [address] 15 Dec, 2009 [facility] [place] [facility] [address] [id number], [place] [address] Sep, [facility] [place] [facility] [address] [id number], [place] [address]- [address] 08 May, 2009 [facility] [place] [facility] [address] [id number] [place] [address]- 5662 May, [facility] [place] [facility] [address] [id number], [place] [address] 1101 May, [facility] [place] [facility] [address] [id number] [place] [address]- 4427 17 Apr, 2009 [facility] [place] [facility] [address] [id number] [address] 17 Apr, 2009 [facility] [address] [id number] [address] Apr, [facility] [address] [id number], [place] [address] Apr, [facility] [id number] [address] 39[address] Apr, [facility] [id number] [address] Mar, [facility] [id number] [place] [address] Mar, [facility] [id number], [place] [address] Jul, IMMUNIZATIONS No Known Immunizations SOCIAL HISTORY [...] the January before. 03/2018 Hospitalization History [facility]ulitis-[facility] 12/20/15 Hospitalization [facility]- Abd pain 03/07/2017 [facility]- Abd pain 03/14/2017 [facility]- No bowel movement, rash 04/13/2017 Hospitalization History [facility]- Abd pain r/t kidney surgery on 04/17/2017 [facility]- Abd pain r/t kidney surgery on 04/18/2017 Hospitalization History [facility] [place]- Lower abd pain 04/30/2017 Hospitalization History [facility] [place]- Cannot urinate 05/30/2017 Hospitalization History [facility] [place]- Pancreatitis Sx 06/29/2017 Hospitalization History [facility] [place]- Stomach pain 07/22/2017 Hospitalization History [facility] [place]- Left side pain 08/12/2017 Hospitalization History [facility] [place]- Incision site infection 08/30/2017 Hospitalization History [facility]- Post Op Seroma/Hematoma Left Abdomen. Discharged 09/04/17- Dr Daniel 09/02/2017 Hospitalization [facility] [place]- Right shoulder and back pain 2017 Hospitalization History [facility] [place]- Shoulder/Back pain 11/11/2017 Hospitalization History [facility] [place]- Right shoulder blade pain 12/04/2017 Hospitalization History [facility] [place]- C-Diff 12/13/2017 Hospitalization History C diff et MRSA 12/27/2017
--- OUTSIDE RECORDS SUMMARY | 2018-04-29 10:24 | XMS REPORT ---
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 Name Role Phone SAICORTNEY KOENIGHANY Unavailable PROBLEMS Type Condition ICD9-CM Code LKB35-KZ Code Onset Dates Condition Status SNOMED Code Problem Atelectasis J98.11 Active 24541112 Problem Restless leg syndrome G25.81 Active 36408259 Problem Trichotillomania F63.3 Active 72254561 Problem Primary osteoarthritis of right knee M17.11 Active [id number] Problem Intestinal malabsorption, unspecified K90.9 Active 03772048 Problem Chronic post-traumatic stress disorder (PTSD) F43.12 Active 424117955 Problem Generalized social phobia F40.11 Active 87969395 Problem Chronic fatigue R53.82 Active 91692398 Problem Moderate episode of recurrent major depressive disorder F33.1 Active 505945405 Problem Chronic tension-type headache, intractable G44.221 Active 500411878 Problem Morbid (severe) obesity due to excess calories E66.01 Active 955360286 Problem Nodule of left lung R91.1 Active 388158332 Problem History of renal cell carcinoma Z85.528 Active 599486196 Problem FH: polycystic ovary Z84.2 Active 331177672 Problem Chronic pancreatitis K86.1 Active 471423200 Problem Hyperlipidemia, mixed E78.2 Active 540511679 Problem Asthma J45.909 Active 207576312 Problem Hirsuties L68.0 Active 068970504 Problem Polydipsia R63.1 Active 26654219 ALLERGIES Substance Reaction Event Type Date Status Vancomycin HCl itching Drug Allergy Mar, Active Penicillin V Potassium Unknown Drug Allergy Mar, Active Fentanyl Unknown Drug Allergy Mar, Active Demerol Unknown Drug Allergy Mar, Active ENCOUNTERS Encounter Location Date Diagnosis [facility] [address] [facility] [id number] [address] Apr, [facility] [address] [address] Mar, [facility] [id number] [place] [address] 84651 -8828 Mar, BMI 45.0-49.9, adult Z68.42 and Pimples R23.8 [facility] [id number] [place] [address] 79421- 7437 Mar, [facility] [id number] [place] [address] 52520- 2596 Mar, [facility] [id number] [place] [address] 97692- 9749 Mar, Decreased urination R34 ; Chronic fatigue R53.82 ; Peripheral edema R60.9 ; Diarrhea, unspecified type R19.7 ; Non-intractable vomiting with nausea, unspecified vomiting type R11.2 ; BMI 45.0-49.9, adult Z68.42 and Chronic post-traumatic stress disorder (PTSD) F43.12 [facility] [address] [place] [address] 91172- 3458 Mar, Intestinal malabsorption, unspecified K90.9 ; Diarrhea, unspecified R19.7 ; Urinary urgency R39.15 ; Rectal bleeding K62.5 and Decreased urine output R34 [place] [address] [place] [address] 67115- 8459 Mar, Decreased urine output R34 [facility] [id number] [place] [address] 14243- 6305 Mar, Rectal bleeding K62.5 [place] [id number] [place] [address] 55869- 9925 Mar, Rectal bleeding K62.5 [facility] [address] [place] [address] 72569- 1738 Mar, Urinary urgency R39.15 [place] [id number] [place] [address] 59416- 0240 Mar, Urinary urgency R39.15 [facility] [id number] [place] [address] 48921- 2008 Mar, Primary osteoarthritis of right knee M17.11 and BMI 45.0- 49.9, adult Z68.42 [facility] [address] [place] [address] 76098- 3513 Mar, [facility] [id number] [place] [address] 04232- 8672 Feb, Left upper arm pain M79.622 [facility] [id number] [place] [address] 47632- 6590 Feb, [facility] [id number] [place] [address] 04566- 7121 Jan, Acute pain of right knee M25.561 ; Right upper quadrant abdominal pain R10.11 and BMI 45.0-49.9, adult Z68.42 [place] [id number] [place] [address] 25150- 1153 Jan, [facility] [id number] [place] [address] 83052- 1918 Jan, [facility] [id number] [place] [address] 05186- 2064 Dec, [facility] [id number] [place] [address] 75273- 8406 Dec, Intestinal malabsorption, unspecified K90.9 and Diarrhea, unspecified R19.7 [facility] [address] [place] [address] 66656- 5719 Dec, [facility] [id number] [place] [address] 07515- 5379 Dec, Strep throat J02.0 ; Intestinal malabsorption, unspecified K90.9 ; Diarrhea, unspecified R19.7 ; Postoperative seroma involving digestive system after non-digestive system procedure K91.873 ; Hyperlipidemia, mixed E78.2 and BMI 45.0-49.9, adult Z68.42 [facility] [address] [address] Dec, [facility] [address] [id number] [address] 7244 Dec, Nausea R11.0 [facility] [id number] [place] [address] 84983- 8293 Dec, [facility] [address] [address] Dec, Sore throat J02.9 ; Strep throat J02.0 and BMI 45.0-49.9, adult Z68.42 [facility] [id number] [place] [address] 09928- 9085 Dec, [facility] [id number] [place] [address] 57600- 9868 Dec, [facility] [id number] [place] [address] 21938- 9899 Dec, [facility] [id number] [place] [address] 87690- 8411 Dec, [facility] [address], [place] [address] 0943 Dec, [facility] [id number] [place] [address] 23517- 9016 Dec, [facility] [address], [place] [address]- 9180 Dec, [facility] [id number] [place] [address] 64149- 0826 Dec, [facility] [address], [place] [address] Dec, Clostridium difficile colitis A04.72 ; Intractable vomiting with nausea, unspecified vomiting type R11.2 and BMI 45.0-49.9, adult Z68.42 [facility] [address] [address] 7657 Dec, [facility] [id number] [place] [address] 82581- 2529 Nov, [facility] [id number] [place] [address] 44411- 3425 Nov, [facility] [id number] [place] [address] 22393- 8852 Nov, [facility] [id number] [place] [address] 68205- 3417 Nov, [facility] [id number] [place] [address] 76716 -8299 Nov, [facility] [id number] [place] [address] 69990- 2415 Nov, Hyperlipidemia, mixed E78.2 [facility] [id number] [place] [address] 00376 -1907 Nov, Acute suppurative otitis media of right ear without spontaneous rupture of tympanic membrane, recurrence not specified H66.001 and BMI 45.0-49.9, adult Z68.42 [facility] [address], [place] [address]- 0[address] Nov, Hyperlipidemia, mixed E78.2 [facility] [id number] [place] [address] 85900- 2523 Nov, [facility] [id number] [place] [address] 33944- 3576 Nov, [facility] [id number] [place] [address] 52645- 1050 Nov, Nodule of left lung R91.1 [facility] [address], [place] [address] Nov, Medicare annual wellness visit, initial Z00.00 [...] adult Z68.42 and Encounter for immunization Z23 [place] [address] 75194- 7789 October, [address] [address]- 4511 October, Nodule of left lung R91.[address] 66877- 2734 October, Nodule of left lung R91.1 [place] [address] 11796- 4058 October, Recurrent major depressive disorder, in partial remission F33.41 ; Restless leg syndrome G25.81 ; Generalized social phobia F40.11 ; Chronic post-traumatic stress disorder (PTSD) F43.12 ; BMI 45.0-49.9, adult Z68.42 and Trichotillomania F63.[address] 15057- 8131 October, [place] [address] 41084- 5628 Sep, Chronic fatigue R53.82 and BMI 45.0-49.9, adult Z68.[address] 44123- 5435 Aug, [place] [address] 39922- 6165 Jul, Restless leg syndrome G25.81 and B12 deficiency E53.[address] [id number], [place] [address] 355[address] Jul, [facility] [address], [place] [address]- 8222 Jul, [facility] [address], [place] [address]- 5512 Jun, [facility] [id number] [place] [address] 46653- 2518 Jun, Fatigue, unspecified type R53.83 ; History of renal cell carcinoma Z85.528 ; Chronic pancreatitis K86.1 ; Restless leg syndrome G25.81 ; Dark urine R82.99 and BMI 45.0-49.9, adult Z68.42 [facility] [address], [place] [address]- 3517 Jun, [place] [id number] [place] [address] 30505- 9656 Jun, [facility] [address], [place] [address]- 1062 Jun, [facility] [address], [place] [address]- 7060 Jun, [facility] [address] [address]- 1987 May, Chronic post-traumatic stress disorder (PTSD) F43.12 ; Moderate episode of recurrent major depressive disorder F33.1 ; Trichotillomania F63.3 and Generalized social phobia F40.11 [facility] [address] [address]- 0213 May, [facility] [address] [address]- 7787 May, Chronic post-traumatic stress disorder (PTSD) F43.12 ; Moderate episode of recurrent major depressive disorder F33.1 ; Trichotillomania F63.3 and Generalized social phobia F40.11 [place] [address] [address]- 7908 May, Hyperlipidemia, mixed E78.2 ; Morbid (severe) obesity due to excess calories E66.01 ; Chronic post-traumatic stress disorder (PTSD) F43.12 ; Moderate episode of recurrent major depressive disorder F33.1 ; Trichotillomania F63.3 and Generalized social phobia F40.11 [place] [id number] [place] [address] 20384- 9372 30 Apr, 2017 [place] [id number] [place] [address] 44246- 4747 Apr, Hyperlipidemia, mixed E78.2 ; Morbid (severe) obesity due to excess calories E66.01 ; Chronic post-traumatic stress disorder (PTSD) F43.12 ; Moderate episode of recurrent major depressive disorder F33.1 ; Trichotillomania F63.3 and Generalized social phobia F40.11 [place] [id number] [place] [address] 21721- 2279 Apr, Trichotillomania F63.3 ; Generalized social phobia F40.11 ; Chronic post-traumatic stress disorder (PTSD) F43.12 and Moderate episode of recurrent major depressive disorder F33.1 [place] [id number] [place] [address] 31613- 9224 15 Apr, 2017 [place] [id number] [place] [address] 47389- 4365 Apr, [facility] [id number] [place] [address] 94569- 4424 Mar, Moderate episode of recurrent major depressive disorder F33.1 ; Trichotillomania F63.3 ; Chronic post-traumatic stress disorder (PTSD) F43.12 ; Generalized social phobia F40.11 and Restless leg syndrome G25.81 [place] [id number] [place] [address] 59365- 3180 Mar, [place] [id number] [place] [address] 01646- 2573 Mar, [facility] [id number] [place] [address] 65992- 7483 Feb, Left kidney mass N28.89 [facility] [id number] [place] [address] 77219- 0331 Jan, [facility] [id number] [place] [address] 23935- 9431 Dec, Polydipsia R63.1 ; Chronic pancreatitis K86.1 and Fatigue, unspecified type R53.83 [facility] [id number] [place] [address] 91697- 3639 Nov, [facility] [id number] [place] [address] 37296- 3018 Nov, [facility] [id number] [place] [address] 97670- 2279 Nov, Headache around the eyes R51 [facility] [id number] [place] [address] 63568- 0395 Nov, [facility] [id number] [place] [address] 30079- 8371 October, STD exposure Z20.2 [facility] [id number] [place] [address] 96010- 4460 October, STD exposure Z20.2 [facility] [id number] [place] [address] 61377- 6558 October, Chronic post-traumatic stress disorder (PTSD) F43.12 ; Generalized social phobia F40.11 ; Trichotillomania F63.3 and Restless leg syndrome G25.81 [facility] [id number] [place] [address] 28541- 3289 October, [facility] [id number] [place] [address] 29586- 3877 Sep, [facility] [address] [place] [address]- 8885 17 Aug, 2016 [place] [id number] [place] [address] 26570- 1654 Aug, [place] [address] 72428- 2656 Aug, Neck mass R22.1 [place] [address] 40801- 4586 Aug, Atelectasis J98.11 [place] [address] 71665- 6065 Jul, Hyperlipidemia, mixed E78.2 ; Atypical pneumonia J18.9 and Neck mass R22.1 [place] [address] 50105- 1242 Jul, Hemoptysis R04.2 [place] [address] 58319- 6818 Jul, Acute non-recurrent pansinusitis J01.40 ; Hemoptysis R04.2 ; Polydipsia R63.1 and Malaise R53.81 [facility] [place] [id number] [place] [address] 57237 -8183 May, Other viral agents as the cause of diseases classified elsewhere B97.89 and Acute upper respiratory infection, unspecified J06.9 [facility] [address] [place] [id number] [place] [address] 34351 -3499 Mar, Nausea R11.0 [facility] [address] [place] [id number] [place] [address] 49022 -5285 Dec, Hives L50.9 [place] [id number] [place] [address] 67588- 1687 Dec, [facility] [id number] [place] [address] 77164 -3941 Dec, Cutaneous abscess of limb, unspecified L02.419 ; Cellulitis of unspecified part of limb L03.119 ; Encounter for incision and drainage procedure Z01.89 and Encounter for recheck of abscess following incision and drainage Z09 [facility] [address] [place] [address] 95964 -7687 09 Dec, 2015 Abscess of leg, right L02.415 [place] [id number] [place] [address] 18498- 0438 08 Dec, 2015 Cellulitis of unspecified part of limb L03.119 and Cutaneous abscess of limb, unspecified L02.419 [place] [id number] [place] [address] 32241- 6017 Dec, [place] [id number] [place] [address] 32727- 1108 Dec, [facility] [place] [id number] [place] [address] 00296 -0764 Aug, [place] [id number] [place] [address] 30729- 6551 Aug, [facility] [place] [id number] [place] [address] 89808 -5744 Jul, Pain in unspecified wrist M25.539 and Back pain, thoracic M54.6 [facility] [place] [address] [place] [address] 91146 -8341 Jun, Strain of right wrist, initial encounter S66.911A [place] [id number] [place] [address] 15069- 5843 Jun, Chronic pancreatitis, unspecified pancreatitis type K86.1 ; Hirsuties L68.0 ; Morbid (severe) obesity due to excess calories E66.01 ; Chronic pancreatitis K86.1 and Asthma J45.909 [place] [address] [place] [address] 81255- 3316 May, [place] [id number] [place] [address] 03330- 0829 May, Hyperlipidemia, mixed E78.2 and Muscle spasm of back M62.830 [facility] [id number] [place] [address] 57658- 9644 Apr, [facility] [id number] [place] [address] 44638- 5906 Apr, Torticollis M43.6 [facility] [address] 60386- 6886 Apr, Right-sided thoracic back pain M54.6 [facility] [id number] [place] [address] 77604- 0294 Mar, Rash R21 [facility] [address] 24017- 3499 Mar, [facility] [id number] [place] [address] 38648- 5753 Jan, [facility] [id number] [place] [address] 57517- 4357 Dec, [facility] [address] 20199- 1308 Dec, Urinary frequency 788.41 and Nocturia more than twice per night 788.43 [facility] [id number] [place] [address] 52754- 7306 Nov, [facility] [id number] [place] [address] 46559- 1108 Nov, [facility] [id number] [place] [address] 61632- 5665 Nov, Abdominal pain 789.00 [facility] [id number] [place] [address] 97654- 1964 October, TDAP DX V06.1 [facility] [id number] [place] [address] 65865- 3313 October, [facility] [address] [address]- 2026 October, Disturbance of skin sensation 782.0 ; Wrist pain, right 719.43 ; Hyperlipidemia 272.4 and Skin lesion of face 709.9 [facility] [address] [facility] [id number] [place] [address]- 9212 Sep, [facility] [address] [address]- 0336 Sep, [facility] [address] [facility] [id number] [place] [address]- 6266 Aug, [facility] [address] [place] [id number] [place] [address], [place] [address]- 7456 Aug, [facility] [address] [place] [address]- 0296 Aug, [facility] [address] [place] [address]- 0538 Aug, [facility] [address] [address]- 3872 Aug, [facility] [address] [place] [address]- 9806 Aug, [facility] [address] [address]- 6736 Aug, [facility] [address] [address]- 2114 Aug, [facility] [address] [address]- 3896 Aug, [facility] [address] [address]- 9066 Aug, [facility] [address] [address]- 2546 Aug, [facility] [address] [address]- 1756 Aug, [facility] [place] [facility] [address] [id number] [place] [address]- 4694 Aug, [facility] [place] [facility] [address] [id number] [place] [address]- 4676 Aug, [facility] [place] [facility] [address] [id number] [place] [address]- 3932 Jul, [facility] [place] [facility] [address] [id number] [place] [address]- 8056 Jul, [facility] [place] [facility] [address] [id number] [place] [address]- 5851 Jul, [facility] [place] [facility] [address] [id number] [place] [address]- 9947 Jul, [facility] [place] [facility] [address] [id number] [place] [address]- 9244 Jul, [facility] [place] [facility] [address] [id number] [place] [address]- 0364 Jul, [facility] [place] [facility] [address] [id number] [place] [address]- 6436 Jun, [facility] [place] [facility] [address] [id number] [place] [address]- 1600 Jun, [facility] [place] [facility] [address] [id number], [place] [address]- 9152 Jun, [facility] [place] [facility] [address] [id number], [place] [address]- 8405 Jun, [facility] [place] [facility] [address] [id number] [place] [address]- 6525 Jun, [facility] [place] [facility] [address] [id number] [place] [address]- 4385 Jun, [facility] [place] [facility] [address] [id number] [place] [address]- 3413 Jun, [facility] [place] [facility] [address] [id number] [place] [address] 15 Jun, 2014 [facility] [place] [facility] [address] [id number] [place] [address] May, [facility] [place] [facility] [address] [id number] [place] [address] May, [facility] [place] [facility] [address] [id number] [place] May, [facility] [place] [facility] [address] [id number] [place] [address] May, [facility] [place] [facility] [address] [id number] [place] [address] May, [facility] [place] [facility] [address] [id number] [place] [address] May, [facility] [place] [facility] [address] [id number] [place] [address] May, [facility] [place] [facility] [address] [id number] [place] [address] May, [facility] [place] [facility] [address] [id number] [place] [address] May, [facility] [place] [facility] [address] [id number] [place] [address] May, [facility] [place] [facility] [address] [id number] [place] [address] May, [facility] [place] [facility] [address] [id number] [place] [address] May, [facility] [place] [facility] [address] [id number] [place] [address] Apr, [facility] [place] [facility] [address] [id number] [place] [address] Apr, [facility] [place] [facility] [address] [id number] [place] [address] Apr, [facility] [place] [facility] [address] [id number] [place] [address] Apr, [facility] [place] [facility] [address] [id number] [place] [address] Apr, [facility] [place] [facility] [address] [id number] [place] [address] Apr, [facility] [place] [facility] [address] [id number] [place] [address] Apr, [facility] [place] [facility] [address] [id number] [place] [address] Apr, [facility] [place] [facility] [address] [id number] [place] [address] Apr, [facility] [place] [facility] [address] [id number] [place] [address] Apr, [facility] [place] [facility] [address] [id number] [place] [address] Apr, [facility] [place] [facility] [address] [id number] [place] [address] Apr, [facility] [place] [facility] [address] [id number] [place] [address] Mar, [facility] [place] [facility] [address] [id number] [place] [address] Mar, [facility] [place] [facility] [address] [id number] [place] [address] Mar, [facility] [place] [facility] [address] [id number] [place] [address] Mar, [facility] [place] [facility] [address] [id number] [place] [address] Feb, [facility] [place] [facility] [address] [id number] [place] [address] Feb, [facility] [place] [facility] [address] [id number] [place] [address] Feb, 2013 [facility] [place] [facility] [address] [id number] [place] [address] 6031 Feb, 2013 [facility] [place] [facility] [address] [id number] [place] [address] 2336 Feb, 2013 [facility] [place] [facility] [address] [id number] [place] [address] 4479 Feb, 2013 [facility] [place] [facility] [address] [id number] [place] [address] 7458 Jan, [facility] [place] [facility] [address] [id number] [place] [address] 9231 Jan, [facility] [place] [facility] [address] [id number] [place] [address]- 1406 Jan, [facility] [place] [facility] [address] [id number] [place] [address]- 6868 Jan, [facility] [place] [facility] [address] [id number] [place] [address]- 7811 Jan, [facility] [place] [facility] [address] [id number] [place] [address]- 7130 Jan, [facility] [place] [facility] [address] [id number] [place] [address]- 2665 Jan, [facility] [place] [facility] [address] [id number] [place] [address]- 4029 Jan, [facility] [place] [facility] [address] [id number] [place] [address]- 7613 Jan, [facility] [place] [facility] [address] [id number] [place] [address]- 2336 Jan, [facility] [place] [facility] [address] [id number] [place] [address]- 6367 Jan, [facility] [place] [facility] [address] [id number] [place] [address]- 0910 Jan, [facility] [place] [facility] [address] [id number] [place] [address] 8626 Jan, [facility] [place] [facility] [address] [id number] [place] [address]- 2648 Jan, [facility] [place] [facility] [address] [id number] [place] [address]- 9678 Dec, [facility] [place] [facility] [address] [id number] [place] [address]- 0271 Dec, [facility] [place] [facility] [address] [id number] [place] [address]- 4495 Dec, [facility] [place] [facility] [address] [id number] [place] [address]- 2885 Dec, [facility] [place] [facility] [address] [id number] [place] [address]- 0988 Nov, [facility] [place] [facility] [address] [id number] [place] [address]- 7803 Nov, [facility] [place] [facility] [address] [id number] [place] [address]- 5259 Nov, [facility] [place] [facility] [address] [id number] [place] [address]- 4420 Nov, [facility] [place] [facility] [address] [id number] [place] [address]- 9432 Nov, [facility] [place] [facility] [address] [id number] [place] [address]- 5118 October, [facility] [place] [facility] [address] [id number] [place] [address]- 8071 October, [facility] [place] [facility] [address] [id number] [place] [address]- 3276 October, [facility] [place] [facility] [address] [id number] [place] [address]- 0886 October, [facility] [place] [facility] [address] [id number] [place] [address]- 9462 October, [facility] [place] [facility] [address] [id number] [place] [address]- 5371 October, [facility] [place] [facility] [address] [id number] [place] [address]- 6882 October, [facility] [place] [facility] [address] [id number] [place] [address]- 4416 October, [facility] [place] [facility] [address] [id number] [place] [address]- 0359 October, [facility] [place] [facility] [address] [id number] [place] [address]- 0543 October, [facility] [place] [facility] [address] [id number] [place] [address]- 1385 October, [facility] [place] [facility] [address] [id number] [place] [address]- 0933 October, [facility] [place] [facility] [address] [id number] [place] [address]- 6823 October, [facility] [place] [facility] [address] [id number] [place] [address]- 2508 October, [facility] [place] [facility] [address] [id number] [place] [address]- 3714 Sep, [facility] [place] [facility] [address] [id number] [place] [address]- 4476 Sep, [facility] [place] [facility] [address] [id number] [place] [address]- 5870 Sep, [facility] [place] [facility] [address] [id number] [place] [address]- 8291 Sep, [facility] [place] [facility] [address] [id number] [place] [address]- 0339 Sep, [facility] [place] [facility] [address] [id number] [place] [address]- 0307 Sep, [facility] [place] [facility] [address] [id number] [place] [address]- 4406 Sep, [facility] [place] [facility] [address] [id number] [place] [address]- 1534 Sep, [facility] [place] [facility] [address] [id number] [place] [address]- 2929 Sep, [facility] [place] [facility] [address] [id number] [place] [address]- 6220 Sep, [facility] [place] [facility] [address] [id number] [place] [address]- 8169 Sep, [facility] [place] [facility] [address] [id number] [place] [address]- 0098 Sep, [facility] [place] [facility] [address] [id number] [place] [address]- 5550 Sep, [facility] [place] [facility] [address] [id number] [place] [address]- 2359 Sep, [facility] [place] [facility] [address] [id number] [place] [address]- 9222 Sep, [facility] [place] [facility] [address] [id number] [place] [address] 1955 Aug, [facility] [place] [facility] [address] [id number] [place] [address]- 3451 Aug, [facility] [place] [facility] [address] [id number] [place] [address]- 0663 Aug, [facility] [place] [facility] [address] [id number] [place] [address]- 4284 Aug, [facility] [place] [facility] [address] [id number] [place] [address]- 8295 Jul, [facility] [place] [facility] [address] [id number] [place] [address]- 9108 Jul, [facility] [place] [facility] [address] [id number], [place] [address] 4718 Jul, [facility] [place] [facility] [address] [id number] [place] [address]- 0708 Jul, [facility] [place] [facility] [address] [id number] [place] [address]- 2352 Jun, [facility] [address] [id number] [place] [address]- 0659 Jun, [facility] [place] [facility] [address] [id number] [place] [address]- 5458 Jun, [facility] [address] [id number] [place] [address]- 2518 Jun, [facility] [address] [id number] [place] [address]- 0885 Jun, [facility] [address] [id number] [place] [address]- 2164 Jun, [facility] [address] [id number] [place] [address]- 9382 Jun, [facility] [address] [id number] [place] [address]- 2235 Jun, [facility] [address] [id number] [place] [address]- 3788 May, [facility] [address] [id number] [place] [address]- 1319 May, [facility] [place] [facility] [address] [id number] [place] [address]- 0893 May, [facility] [place] [facility] [address] [id number] [place] [address] 18 May, 2013 [facility] [place] [facility] [address] [id number] [place] [address]- 5659 17 May, 2013 [facility] [place] [facility] [address] [id number] [id number] 17 May, 2013 [facility] [place] [facility] [address] [id number], [place] [address]- 8608 17 May, 2013 [facility] [address] [id number] [place] [address]- 8273 17 May, 2013 [facility] [place] [facility] [address] [id number] [place] [address]25 16 May, 2013 [facility] [place] [facility] [address] [id number] [place] 4259 16 May, 2013 [facility] [place] [facility] [address] [id number] [place] [address]- 4241 14 May, 2013 [facility] [address] [id number] [place] [address]- 0094 14 May, 2013 [facility] [place] [facility] [address] [id number] [place] [address]- 3816 13 May, 2013 [facility] [place] [facility] [address] [id number] [place] [address]- 1359 13 May, 2013 [facility] [place] [facility] [address] [id number] [place] [address]- 6761 12 May, 2013 [facility] [place] [facility] [address] [id number] [place] [address]- 3898 12 May, 2013 [facility] [place] [facility] [address] [id number] [place] [address]- 8977 11 May, 2013 [facility] [place] [facility] [address] [id number], [place] [address]- 7758 11 May, 2013 [facility] [place] [facility] [address] [id number], [place] [address]- 2010 26 Apr, 2013 [facility] [place] [facility] [address] [id number] [place] [address]- 8146 Apr, [facility] [place] [facility] [address] [id number] [place] [address]- 1572 Apr, [facility] [place] [facility] [address] [id number] [place] [address]- 4067 Apr, [facility] [place] [facility] [address] [id number] [place] [address]- 2350 27 Aug, 2012 [facility] [address] [id number] [place] [address]- 7318 18 Aug, 2012 [facility] [address] [id number] [place] [address] 2546 06 Aug, 2012 [facility] [address] [id number] [place] [address]- 8721 05 Aug, 2012 [facility] [address] [id number] [place] [address]- 1494 04 Jul, 2012 [facility] [address] [id number] [place] [address]- 2278 24 Jun, 2012 [facility] [address] [id number] [place] [address]- 6573 Jun, [facility] [address] [id number] [place] [address]- 1996 Jun, [facility] [address] [id number] [place] [address]- 4363 Jun, [facility] [address] [id number] [place] [address]- 1382 May, [facility] [address] [id number] [place] [address]- 4282 May, [facility] [address] [id number] [place] [address]- 0595 May, [facility] [address] [id number] [place] [address]- 7464 May, [facility] [address] [id number] [place] [address]- 0748 May, [facility] [address] [id number] [place] [address]- 3256 May, [facility] [address] [id number] [place] [address]- 6831 May, [facility] [place] [facility] [address] [id number] [place] [address]- 5334 Apr, [facility] [place] [facility] [address] [id number] [place] [address]- 1719 Apr, [facility] [place] [facility] [address] [id number] [place] [address]- 3292 Apr, [facility] [place] [facility] [address] [id number] [place] [address]- 7267 Apr, [facility] [place] [facility] [address] [id number] [place] [address]- 7850 Apr, [facility] [place] [facility] [address] [id number] [place] [address]- 4334 Apr, [facility] [place] [facility] [address] [id number] [place] [address]- 2591 Apr, [facility] [place] [facility] [address] [id number], [place] [address]- 3189 Mar, [facility] [place] [facility] [address] [id number], [place] [address]- 0963 Mar, [facility] [place] [facility] [address] [facility] [id number], [place] [address]- 5720 Mar, [facility] [place] [facility] [address] [id number], [place] [address]- 3689 Mar, [facility] [place] [facility] [address] [id number], [place] [address]- 2716 Mar, [facility] [place] [facility] [address] [id number], [place] [address]- 0354 Mar, [facility] [place] [facility] [address] [id number], [place] [address]- 6793 Mar, [facility] [place] [facility] [address] [facility] [id number], [place] [address]- 4332 Mar, [facility] [place] [facility] [address] [id number], [place] [address]- 6583 Mar, [facility] [place] [facility] [address] [id number] [place] [address]- 8586 Mar, [facility] [place] [facility] [address] [id number] [place] [address]- 5452 Mar, [facility] [place] [facility] [address] [facility] [id number] [place] [address]- 8587 Mar, [facility] [place] [facility] [address] [id number] [place] [address]- 1980 Feb, [facility] [place] [facility] [address] [id number] [place] [address]- 3209 Jan, [facility] [place] [facility] [address] [id number] [place] [address]- 5437 Jan, [facility] [place] [facility] [address] [id number] [place] [address]- 8075 Jan, [facility] [place] [facility] [address] [id number] [place] [address]- 7664 Jan, [facility] [place] [facility] [address] [facility] [id number] [place] [address]- 8609 Jan, [facility] [place] [facility] [address] [facility] [id number] [place] [address]- 6333 Dec, [facility] [place] [facility] [address] [id number] [place] [address]- 1279 Dec, [facility] [place] [facility] [address] [id number], [place] [address]- 9162 Nov, [facility] [place] [facility] [address] [id number] [place] [address]- 5806 Nov, [facility] [place] [facility] [address] [facility] [id number] [place] [address]- 3979 Nov, [facility] [place] [facility] [address] [facility] [id number] [place] [address]- 0761 October, [facility] [place] [facility] [address] [id number] [place] [address]- 3502 October, [facility] [address] [id number] [place] [address]- 8029 October, [facility] [place] [facility] [address] [id number] [place] [address]- 5820 October, [facility] [place] [facility] [address] [id number] [place] [address]- 8945 October, [facility] [place] [facility] [address] [id number] [place] [address]- 8289 October, [facility] [place] [facility] [address] [id number] [place] [address]- 5100 October, [facility] [place] [facility] [address] [id number] [place] [address]- 9693 Sep, [facility] [place] [facility] [address] [id number] [place] [address]- 2203 26 Sep, 2011 [facility] [place] [facility] [address] [id number] [place] [address]- 7603 26 Sep, 2011 [facility] [place] [facility] [address] [id number] [place] [address]- 3913 25 Sep, 2011 [facility] [place] [facility] [address] [id number] [place] [address]- 2808 24 Sep, 2011 [facility] [place] [facility] [address] [id number] [place] [address]- 3737 19 Sep, 2011 [facility] [place] [facility] [address] [id number] [place] [address]- 2988 17 Sep, 2011 [facility] [place] [facility] [address] [id number] [place] [address]- 6180 16 Sep, 2011 [facility] [place] [facility] [address] [id number] [place] [address]- 4020 16 Sep, 2011 [facility] [place] [facility] [address] [id number] [place] [address]- 3150 14 Sep, 2011 [facility] [place] [facility] [address] [id number] [place] [address]- 8756 13 Sep, 2011 [facility] [place] [facility] [address] [id number] [place] [address]- 6267 10 Sep, 2011 [facility] [place] [facility] [address] [id number] [place] [address]- 2301 09 Sep, 2011 [facility] [place] [facility] [address] [id number] [place] [address]- 6490 27 Aug, 2011 [facility] [place] [facility] [address] [id number] [place] [address]- 6816 12 Aug, 2011 [facility] [place] [facility] [address] [id number] [place] [address]- 1554 08 Aug, 2011 [facility] [place] [facility] [id number] [place] [address]- 4974 06 Aug, 2011 [facility] [place] [facility] [address] [id number] [place] [address]- 9898 28 Jul, 2011 [facility] [place] [facility] [address] [id number] [place] [address]- 5005 22 Jul, 2011 [facility] [place] [facility] [address] [id number] [place] [address]- 2304 16 Jul, 2011 [facility] [place] [facility] [id number] [place] [address]- 4644 15 Jul, 2011 [facility] [place] [facility] [address] [id number] [place] [address]- 9057 14 Jul, 2011 [facility] [place] [facility] [address] [id number] [place] [address]- 9722 10 Jul, 2011 [facility] [place] [facility] [address] [facility] [id number] [place] [address]- 4236 30 Jun, 2011 [facility] [place] [facility] [address] [facility] [id number] [place] [address]- 8816 05 Jun, 2011 [facility] [place] [facility] [address] [id number] [place] [address]- 7465 04 Jun, 2011 [facility] [address] [id number] [place] [address]- 9817 Jun, [facility] [place] [facility] [address] [id number] [place] [address]- 3372 Jun, [facility] [address] [id number] [place] [address]- 4528 May, [facility] [place] [facility] [address] [id number] [place] [address]- 8153 May, [facility] [address] [id number] [place] [address]- 6770 May, [facility] [place] [facility] [address] [id number] [place] [address]- 2043 14 May, 2011 [facility] [address] [id number] [place] [address]- 9684 May, [facility] [address] [id number] [place] [address]- 3585 May, [facility] [place] [facility] [address] [id number] [place] [address]- 0057 May, [facility] [address] [id number] [place] [address]- 9252 15 Apr, 2011 [facility] [place] [facility] [address] [id number] [place] [address]- 4038 15 Apr, 2011 [facility] [place] [facility] [address] [id number] [place] [address]- 0048 Apr, [facility] [place] [facility] [address] [id number] [place] [address]- 1943 Apr, [facility] [place] [facility] [address] [id number] [place] [address]- 4975 Apr, [facility] [place] [facility] [address] [id number] [place] [address]- 0442 Apr, [facility] [place] [facility] [address] [id number] [place] [address] Mar, [facility] [place] [facility] [address] [id number] [place] [address] Mar, [facility] [place] [facility] [address] [id number] [place] [address] Mar, [facility] [place] [facility] [address] [id number] [place] [address] Mar, [facility] [place] [facility] [address] [id number] [place] [address] Jan, [facility] [place] [facility] [address] [id number] [place] [address] Dec, [facility] [place] [facility] [address] [id number] [place] [address] Dec, [facility] [place] [facility] [address] [id number] [place] [address] October, [facility] [place] [facility] [address] [id number] [place] [address] Sep, [facility] [place] [facility] [address] [id number] [place] [address] Sep, [facility] [place] [facility] [address] [id number] [place] [address] Jul, [facility] [place] [facility] [address] [id number] [place] [address] Jul, [facility] [place] [facility] [address] [id number] [place] [address] May, [facility] [place] [facility] [address] [id number] [place] [address] May, [facility] [place] [facility] [address] [id number] [place] [address] May, [facility] [place] [facility] [address] [id number] [place] [address] 06 May, 2010 [facility] [place] [facility] [address] [id number] [place] [address] Apr, [facility] [place] [facility] [address] [id number] [place] [address] Apr, [facility] [place] [facility] [address] [id number] [place] [address] Apr, [facility] [place] [facility] [address] [id number] [place] [address] Apr, [facility] [place] [facility] [address] [id number] [place] [address] Apr, [facility] [place] [facility] [address] [id number] [place] [address] Mar, [facility] [place] [facility] [address] [id number] [place] [address] 14 Mar, 2010 [facility] [place] [facility] [address] [id number] [place] [address] 13 Mar, 2010 [facility] [place] [facility] [address] [id number] [place] [address] Mar, [facility] [place] [facility] [address] [facility] [id number] [place] [address] Jan, [facility] [place] [facility] [address] [id number] [place] [address] 15 Dec, 2009 [facility] [place] [facility] [address] [id number], [place] [address] 10 Sep, 2009 [facility] [place] [facility] [address] [id number] [place] [address] 08 May, 2009 [facility] [place] [facility] [address] [id number] [place] [address] May, [facility] [place] [facility] [address] [id number], [place] [address] May, [facility] [address] [id number] [address] Apr, [facility] [id number] [address] Apr, [facility] [id number] [address] Apr, [facility] [id number] [place] [address] Apr, [facility] [id number] [place] [address] Apr, [facility] [id number] [place] [address] Mar, [facility] [id number] [place] [address] Mar, [facility] [id number] [address] Jul, IMMUNIZATIONS No Known Immunizations SOCIAL HISTORY Never Assessed REASON FOR VISIT possible infection. C/O that she feels like she may have CDiff again and is having trouble urinating. She had labs done yesterday.-[facility] PLAN OF CARE Activity Details Follow Up 4 Weeks Reason:GI follow up VITAL SIGNS Height 62 in 2018-04-08 Weight 263.4 lbs 2018-04-08 Temperature 98.8 degrees Fahrenheit 2018-04-08 Heart Rate 80 bpm 2018-04-08 Respiratory Rate 20 2018-04-08 BMI 48.17 kg/m2 2018-04-08 Blood pressure systolic 118 mmHg 2018-04-08 Blood pressure diastolic 82 mmHg 2018-04-08 MEDICATIONS Medication Instructions Dosage Frequency Start Date End Date Duration Status Ondansetron HCl 8 mg 1 tablet by Oral route every 8 hours PRN Jul, Active Vitamin B 12 Active Estradiol 0.5 MG Orally Once a day 2 tablet by Oral route 1 time per day 24h Apr, Active Vitamin D 53102 UNIT Orally per day 1 capsule Not-Taking Viokace 25461 UNIT Not-Taking Ropinirole HCl 4 MG Orally Once a day 1 tablet before bedtime 24h 30 days Active Prozac 40 mg Orally Once a day for depression 1 capsules Active RESULTS Name Result Date Reference Range UA W/CULTURE IF INDICATED (IN HOUSE) 2018-04-08 Lot # [id number] Exp date 12/2018 Clarity yellow Color clear Odor GLU neg LISA neg KET neg SG 1.020 BLO neg pH 5.5 Protein neg URO 0.2 NIT neg ALEKSEY neg Lot # Exp date PROCEDURES Procedure Date Ordered Result Body Site URINALYSIS, AUTO, W/O SCOPE Apr 08, 2018 [facility] VISIT ESTABLISHED PATIENT Apr 08, 2018 INSTRUCTIONS MEDICATIONS ADMINISTERED No Known Medications [...] the January before. 03/2018 Hospitalization History Cellulitis-[facility]ia [facility] 12/20/15 Hospitalization History [facility] [place]- Abd pain 03/07/2017 Hospitalization History [facility] [place]- Abd pain 03/14/2017 Hospitalization History [facility] [place]- No bowel movement, rash 04/13/2017 Hospitalization History [facility] [place]- Abd pain r/t kidney surgery on 04/17/2017 Hospitalization History [facility] [place]- Abd pain r/t kidney surgery on 04/18/2017 Hospitalization History [facility] [place]- Lower abd pain 04/30/2017 Hospitalization History [facility] [place]- Cannot urinate 05/30/2017 Hospitalization History [facility]- Pancreatitis Sx 06/29/2017 Hospitalization History [facility]- Stomach pain 07/22/2017 Hospitalization History [facility]- Left side pain 08/12/2017 Hospitalization History [facility]- Incision site infection 08/30/2017 Hospitalization History [facility]- Post Op Seroma/Hematoma Left Abdomen. Discharged 09/04/17- Dr Daniel 09/02/2017 Hospitalization History [facility]- Right shoulder and back pain 2017 Hospitalization History [facility] [place]- Shoulder/Back pain 11/11/2017 Hospitalization History [facility]- Right shoulder blade pain 12/04/2017 Hospitalization History [facility]- C-Diff 12/13/2017 Hospitalization History C diff et MRSA 12/27/2017
--- OUTSIDE RECORDS SUMMARY | 2018-04-29 10:25 | XMS REPORT ---
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 Name Role Phone SAICORTNEY KOENIGHANY Unavailable PROBLEMS Type Condition ICD9-CM Code [id number] Code Onset Dates Condition Status SNOMED Code Problem Atelectasis J98.11 Active 45983426 Problem Restless leg syndrome G25.81 Active 02207717 Problem Trichotillomania F63.3 Active 45539553 Problem Primary osteoarthritis of right knee M17.11 Active [id number] Problem Intestinal malabsorption, unspecified K90.9 Active 60129507 Problem Chronic post-traumatic stress disorder (PTSD) F43.12 Active 311688969 Problem Generalized social phobia F40.11 Active 86567006 Problem Chronic fatigue R53.82 Active 38939304 Problem Moderate episode of recurrent major depressive disorder F33.1 Active 345817055 Problem Chronic tension-type headache, intractable G44.221 Active 555693877 Problem Morbid (severe) obesity due to excess calories E66.01 Active 747366597 Problem Nodule of left lung R91.1 Active 805299532 Problem History of renal cell carcinoma Z85.528 Active 245502122 Problem FH: polycystic ovary Z84.2 Active 772295049 Problem Chronic pancreatitis K86.1 Active 735642188 Problem Hyperlipidemia, mixed E78.2 Active 730870220 Problem Asthma J45.909 Active 868028699 Problem Hirsuties L68.0 Active 646563885 Problem Polydipsia R63.1 Active 97467855 ALLERGIES No Information ENCOUNTERS Encounter Location Date Diagnosis [facility] [id number] [address] Apr, [facility] [id number], [place] [address] Mar, [facility] [address], [place] [address] Mar, BMI 45.0-49.9, adult Z68.42 and Pimples R23.8 [facility] [address] [place] [address] 73540- 6131 Mar, [facility] [id number] [place] [address] 66038- 3050 Mar, [facility] [id number] [place] [address] 39915- 1631 Mar, Decreased urination R34 ; Chronic fatigue R53.82 ; Peripheral edema R60.9 ; Diarrhea, unspecified type R19.7 ; Non-intractable vomiting with nausea, unspecified vomiting type R11.2 ; BMI 45.0-49.9, adult Z68.42 and Chronic post-traumatic stress disorder (PTSD) F43.12 [place] [id number] [place] [address] 58104- 2533 Mar, Intestinal malabsorption, unspecified K90.9 ; Diarrhea, unspecified R19.7 ; Urinary urgency R39.15 ; Rectal bleeding K62.5 and Decreased urine output R34 [place] [id number] [place] [address] 79920- 6059 Mar, Decreased urine output R34 [place] [address] [place] [address] 08789- 2635 Mar, Rectal bleeding K62.5 [place] [id number] [place] [address] 79999- 2993 Mar, Rectal bleeding K62.5 [place] [id number] [place] [address] 66427- 1081 Mar, Urinary urgency R39.15 [place] [id number] [place] [address] 35267- 7732 Mar, Urinary urgency R39.15 [place] [id number] [place] [address] 00837- 8132 Mar, Primary osteoarthritis of right knee M17.11 and BMI 45.0- 49.9, adult Z68.42 [facility] [id number] [place] [address] 52546- 0375 Mar, [facility] [id number] [place] [address] 51492- 8473 Feb, Left upper arm pain M79.622 [facility] [id number] [place] [address] 64745- 9069 Feb, [facility] [id number] [place] [address] 37825- 9318 Jan, Acute pain of right knee M25.561 ; Right upper quadrant abdominal pain R10.11 and BMI 45.0-49.9, adult Z68.42 [facility] [id number] [place] [address] 00132- 6170 Jan, [facility] [id number] [place] [address] 32207- 6422 Jan, [facility] [id number] [place] [address] 34176- 2045 Dec, [facility] [id number] [place] [address] 57808- 8469 Dec, Intestinal malabsorption, unspecified K90.9 and Diarrhea, unspecified R19.7 [facility] [id number] [place] [address] 41236- 0244 Dec, [facility] [id number] [place] [address] 64791- 3576 Dec, Strep throat J02.0 ; Intestinal malabsorption, unspecified K90.9 ; Diarrhea, unspecified R19.7 ; Postoperative seroma involving digestive system after non-digestive system procedure K91.873 ; Hyperlipidemia, mixed E78.2 and BMI 45.0-49.9, adult Z68.42 [facility] [id number] [place] [address] 46579- 6522 Dec, [facility] [address], [place] [address] 3163 Dec, Nausea R11.0 [facility] [address], [place] [address] 35[address] Dec, [facility] [address], [place] [address] Dec, Sore throat J02.9 ; Strep throat J02.0 and BMI 45.0-49.9, adult Z68.42 [facility] [address], [place] [address] 7443 Dec, [facility] [address], [place] [address]- 0726 Dec, [facility] [address], [place] [address] 3535 Dec, [facility] [address], [place] [address]- 3946 Dec, [facility] [address], [place] [address]- 3203 Dec, [facility] [address], [place] [address]- 2578 Dec, [facility] [address], [place] [address]- 5139 Dec, [facility] [address], [place] [address]- 4385 Dec, [facility] [address], [place] [address]- 6781 Dec, Clostridium difficile colitis A04.72 ; Intractable vomiting with nausea, unspecified vomiting type R11.2 and BMI 45.0-49.9, adult Z68.42 [facility] [address], [place] [address] 5591 Dec, [facility] [address], [place] [address]- 7353 Nov, [facility] [id number] [place] [address] 43177- 5067 Nov, [facility] [id number] [place] [address] 02668- 7821 Nov, [place] [id number] [place] [address] 54427- 0948 Nov, [facility] [id number] [place] [address] 16391 -8352 Nov, [place] [id number] [place] [address] 58480- 4938 Nov, Hyperlipidemia, mixed E78.2 [facility] [address], [place] [address] Nov, Acute suppurative otitis media of right ear without spontaneous rupture of tympanic membrane, recurrence not specified H66.001 and BMI 45.0-49.9, adult Z68.42 [place] [id number] [place] [address] 61507- 0385 Nov, Hyperlipidemia, mixed E78.2 [place] [address] [place] [address] 48575- 7811 Nov, [place] [address] [place] [address] 04581- 3183 Nov, [place] [id number] [place] [address] 79887- 1937 Nov, Nodule of left lung R91.1 [place] [id number] [place] [address] 28585- 4736 Nov, Medicare annual wellness visit, initial Z00.00 [...] adult Z68.42 and Encounter for immunization Z23 [place] [address] 45419- 7458 October, [place] [address] 76890- 0872 October, Nodule of left lung R91.1 [place] [address] 89406- 4560 October, Nodule of left lung R91.1 [place] [address] 25817- 7667 October, Recurrent major depressive disorder, in partial remission F33.41 ; Restless leg syndrome G25.81 ; Generalized social phobia F40.11 ; Chronic post-traumatic stress disorder (PTSD) F43.12 ; BMI 45.0-49.9, adult Z68.42 and Trichotillomania F63.3 [place] [address] 81111- 5162 October, [place] [id number] [place] [address] 82053- 7456 Sep, Chronic fatigue R53.82 and BMI 45.0-49.9, adult Z68.42 [place] [id number] [place] [address] 22595- 3729 Aug, [place] [address] 51800- 0160 Jul, Restless leg syndrome G25.81 and B12 deficiency E53.8 [place] [address] 46399- 9311 Jul, [place] [address] 71918- 0507 Jul, [facility] [address], [place] [address]- 8595 Jun, [place] [address] [place] [address] 874480- 1766 Jun, Fatigue, unspecified type R53.83 ; History of renal cell carcinoma Z85.528 ; Chronic pancreatitis K86.1 ; Restless leg syndrome G25.81 ; Dark urine R82.99 and BMI 45.0-49.9, adult Z68.42 [place] [address], [place] [address]- 8193 Jun, [place] [id number] [place] [address] 00125- 6522 Jun, [place] [address], [place] [address]- 2211 Jun, [place] [address], [place] [address]- 1259 Jun, [facility] [id number], [place] [address]- 1722 May, Chronic post-traumatic stress disorder (PTSD) F43.12 ; Moderate episode of recurrent major depressive disorder F33.1 ; Trichotillomania F63.3 and Generalized social phobia F40.11 [place] [address], [place] [address]- 2[address] May, [place] [id number], [place] [address]- 7048 May, Chronic post-traumatic stress disorder (PTSD) F43.12 ; Moderate episode of recurrent major depressive disorder F33.1 ; Trichotillomania F63.3 and Generalized social phobia F40.11 [place] [id number], [place] [address]- 4088 07 May, 2017 Hyperlipidemia, mixed E78.2 ; Morbid (severe) obesity due to excess calories E66.01 ; Chronic post-traumatic stress disorder (PTSD) F43.12 ; Moderate episode of recurrent major depressive disorder F33.1 ; Trichotillomania F63.3 and Generalized social phobia F40.11 [facility] [address] [place] [address] 52271- 9178 30 Apr, 2017 [facility] [id number] [place] [address] 10177- 1336 Apr, Hyperlipidemia, mixed E78.2 ; Morbid (severe) obesity due to excess calories E66.01 ; Chronic post-traumatic stress disorder (PTSD) F43.12 ; Moderate episode of recurrent major depressive disorder F33.1 ; Trichotillomania F63.3 and Generalized social phobia F40.11 [facility] [id number] [place] [address] 22414- 1901 Apr, Trichotillomania F63.3 ; Generalized social phobia F40.11 ; Chronic post-traumatic stress disorder (PTSD) F43.12 and Moderate episode of recurrent major depressive disorder F33.1 [place] [id number] [place] [address] 93152- 8053 Apr, [facility] [id number] [place] [address] 78258- 8960 Apr, [facility] [address] [place] [address] 74787- 2074 Mar, Moderate episode of recurrent major depressive disorder F33.1 ; Trichotillomania F63.3 ; Chronic post-traumatic stress disorder (PTSD) F43.12 ; Generalized social phobia F40.11 and Restless leg syndrome G25.81 [facility] [id number] [place] [address] 85890- 0261 Mar, [facility] [id number] [place] [address] 88290- 1156 Mar, [facility] [id number] [place] [address] 12425- 5782 Feb, Left kidney mass N28.89 [facility] [id number] [place] [address] 15166- 6953 Jan, [facility] [id number] [place] [address] 36542- 0673 Dec, Polydipsia R63.1 ; Chronic pancreatitis K86.1 and Fatigue, unspecified type R53.83 [facility] [id number] [place] [address] 89165- 8866 Nov, [facility] [id number] [place] [address] 88587- 5003 Nov, [facility] [id number] [place] [address] 29552- 7884 Nov, Headache around the eyes R51 [facility] [id number] [place] [address] 77866- 4812 Nov, [facility] [id number] [place] [address] 47998- 4936 October, STD exposure Z20.2 [facility] [id number] [place] [address] 57557- 6997 October, STD exposure Z20.2 [facility] [id number] [place] [address] 03989- 0340 October, Chronic post-traumatic stress disorder (PTSD) F43.12 ; Generalized social phobia F40.11 ; Trichotillomania F63.3 and Restless leg syndrome G25.81 [facility] [address] [place] [address] 48050- 8584 October, [facility] [id number] [place] [address] 11474- 3163 Sep, [facility] [id number] [place] [address] 33592- 0925 Aug, [facility] [id number] [place] [address] 96006- 9563 Aug, [place] [id number] [place] [address] 12820- 9345 Aug, Neck mass R22.1 [place] [id number] [place] [address] 26884- 6599 03 Aug, 2016 Atelectasis J98.[address] 97191- 5684 28 Jul, 2016 Hyperlipidemia, mixed E78.2 ; Atypical pneumonia J18.9 and Neck mass R22.1 [place] [id number] [place] [address] 12768- 0011 15 Jul, 2016 Hemoptysis R04.2 [place] [address] [place] [address] 66732- 2796 08 Jul, 2016 Acute non-recurrent pansinusitis J01.40 ; Hemoptysis R04.2 ; Polydipsia R63.1 and Malaise R53.81 [facility] [id number] [place] [address] 02062 -7642 May, Other viral agents as the cause of diseases classified elsewhere B97.89 and Acute upper respiratory infection, unspecified J06.9 [facility] [id number] [place] [address] 85104 -4914 Mar, Nausea R11.0 [facility] [id number] [place] [address] 77832 -7713 28 Dec, 2015 Hives L50.9 [id number] [place] [address] 78547- 6310 14 Dec, 2015 [facility] IN [address] 90283 -6908 10 Dec, 2015 Cutaneous abscess of limb, unspecified L02.419 ; Cellulitis of unspecified part of limb L03.119 ; Encounter for incision and drainage procedure Z01.89 and Encounter for recheck of abscess following incision and drainage Z09 [facility] [id number] [place] [address] 75418 -9529 09 Dec, 2015 Abscess of leg, right L02.415 [place] [id number] [place] [address] 63165- 5922 Dec, Cellulitis of unspecified part of limb L03.119 and Cutaneous abscess of limb, unspecified L02.419 [place] [id number] [place] [address] 76069- 0476 Dec, [place] [id number] [place] [address] 17127- 4206 Dec, [facility] [place] [id number] [place] [address] 34197 -9672 Aug, [place] [id number] [place] [address] 19335- 8665 Aug, [facility] [place] [id number] [place] [address] 01859 -4976 Jul, Pain in unspecified wrist M25.539 and Back pain, thoracic M54.6 [facility] [id number] [place] [address] 49792 -2346 Jun, Strain of right wrist, initial encounter S66.911A [place] [id number] [place] [address] 01719- 0567 Jun, Chronic pancreatitis, unspecified pancreatitis type K86.1 ; Hirsuties L68.0 ; Morbid (severe) obesity due to excess calories E66.01 ; Chronic pancreatitis K86.1 and Asthma J45.909 [place] [id number] [place] [address] 92561- 1042 May, [place] [id number] [place] [address] 41738- 6649 May, Hyperlipidemia, mixed E78.2 and Muscle spasm of back M62.830 [place] [id number] [place] [address] 78508- 7426 Apr, [facility] [id number] [place] [address] 55233- 7461 Apr, Torticollis M43.6 [facility] [id number] [place] [address] 318827- 2847 Apr, Right-sided thoracic back pain M54.6 [facility] [address] 139712- 0452 Mar, Rash R21 [facility] [address] 02405- 3649 Mar, [facility] [address] 22741- 9834 Jan, [facility] [id number] [place] [address] 68893- 8948 Dec, [facility] [id number] [place] [address] 21858- 0777 Dec, Urinary frequency 788.41 and Nocturia more than twice per night 788.43 [facility] [id number] [place] [address] 03061- 4322 Nov, [facility] [id number] [place] [address] 81613- 8444 Nov, [facility] [id number] [place] [address] 42227- 7713 Nov, Abdominal pain 789.00 [facility] [id number] [place] [address] 22760- 5921 October, TDAP DX V06.1 [facility] [address] 76964- 1516 October, [facility] [id number] [place] [address] 287337- 0372 October, Disturbance of skin sensation 782.0 ; Wrist pain, right 719.43 ; Hyperlipidemia 272.4 and Skin lesion of face 709.9 [facility] [place] [facility] [address] [id number] [place] [address]- 3047 14 Sep, 2014 [facility] [address] [id number] [place] [address]- 2617 13 Sep, 2014 [facility] [address] [facility] [id number] [place] [address]- 2547 26 Aug, 2014 [facility] [address] [id number] [place] [address]- 3670 26 Aug, 2014 [facility] [address] [id number] [place] [address]- 9385 23 Aug, 2014 [facility] [place] [facility] [address] [facility] [id number] [place] [address]- 2852 23 Aug, 2014 [facility] [address] [facility] [id number] [place] [address]- 7183 16 Aug, 2014 [facility] [place] [facility] [address] [facility] [id number], [place] [address]- 9669 16 Aug, 2014 [facility] [address] [facility] [id number] [place] [address]- 5239 14 Aug, 2014 [facility] [place] [facility] [address] [facility] [id number] [place] [address]- 4912 14 Aug, 2014 [facility] [address] [facility] [id number], [place] [address]- 3183 11 Aug, 2014 [facility] [place] [facility] [address] [id number], [place] [address]- 0857 11 Aug, 2014 [facility] [place] [facility] [address] [id number], [place] [address]- 6185 04 Aug, 2014 [facility] [place] [facility] [address] [facility] [id number], [place] [address]- 7194 04 Aug, 2014 [facility] [place] [facility] [address] [facility] [id number], [place] [address]- 7056 Aug, [facility] [place] [facility] [address] [facility] [id number] [place] [address]- 8751 Aug, [facility] [place] [facility] [address] [id number] [place] [address]- 7596 Jul, [facility] [place] [facility] [address] [id number] [place] [address] 2546 Jul, 2014 [facility] [place] [facility] [address] [id number] [place] [address]- 8106 Jul, 2014 [facility] [place] [facility] [address] [id number] [place] [address] 2549 Jul, 2014 [facility] [place] [facility] [address] [id number] [place] [address]- 9676 Jul, [facility] [place] [facility] [address] [facility] [id number] [place] [address]- 3127 Jul, [facility] [place] [facility] [address] [id number] [place] [address]- 5997 Jun, [facility] [place] [facility] [address] [id number] [place] [address]- 7125 Jun, [facility] [place] [facility] [address] [id number] [place] [address] Jun, [facility] [place] [facility] [address] [facility] [id number] [place] [address] Jun, [facility] [place] [facility] [address] [id number] [place] [address] Jun, [facility] [place] [facility] [address] [id number] [place] [address] Jun, [facility] [place] [facility] [address] [id number] [place] [address] Jun, [facility] [place] [facility] [address] [id number] [place] [address] Jun, [facility] [place] [facility] [address] [id number] [place] [address] May, [facility] [place] [facility] [address] [id number] [place] [address] May, [facility] [place] [facility] [address] [id number] [place] [address] May, [facility] [place] [facility] [address] [id number] [place] [address] May, [facility] [place] [facility] [address] [id number] [place] [address] May, [facility] [place] [facility] [address] [id number] [place] [address] May, [facility] [place] [facility] [address] [id number] [place] [address] May, [facility] [place] [facility] [address] [id number] [place] [address] May, [facility] [place] [facility] [address] [id number] [place] [address] May, [facility] [place] [facility] [address] [id number] [place] [address] May, [facility] [place] [facility] [address] [id number] [place] [address] May, [facility] [place] [facility] [address] [id number] [place] [address] May, [facility] [place] [facility] [address] [id number], [place] [address] Apr, [facility] [place] [facility] [address] [id number] [place] [address] Apr, [facility] [place] [facility] [address] [id number] [place] [address] Apr, [facility] [place] [facility] [address] [id number] [place] [address] Apr, [facility] [place] [facility] [address] [id number] [place] [address] 24 Apr, 2014 [facility] [place] [facility] [address] [id number] [place] [address] 24 Apr, 2014 [facility] [place] [facility] [address] [id number] [place] [address] Apr, [facility] [place] [facility] [address] [id number] [place] [address] Apr, [facility] [place] [facility] [address] [address] [id number] [place] [address] Apr, [facility] [place] [facility] [address] [id number] [place] [address] Apr, [facility] [place] [facility] [address] [id number] [place] [address] 1423 Apr, [facility] [place] [facility] [address] [id number] [place] [address] 3835 Apr, [facility] [place] [facility] [address] [id number] [place] [address] 3[address] Mar, [facility] [place] [facility] [address] [id number] [place] [address] 0004 Mar, [facility] [place] [facility] [address] [id number] [place] [address] Mar, [facility] [place] [facility] [address] [id number] [place] [address] 1646 Mar, [facility] [place] [facility] [address] [id number] [place] [address] 2155 10 Feb, 2014 [facility] [place] [facility] [address] [id number] [place] [address] 6640 10 Feb, 2014 [facility] [place] [facility] [address] [id number] [place] [address]- 0441 05 Feb, 2014 [facility] [place] [facility] [address] [id number] [place] [address]- 9601 05 Feb, 2014 [facility] [place] [facility] [address] [id number] [place] [address] 7715 Feb, [facility] [place] [facility] [address] [id number] [place] [address] 1248 Feb, [facility] [place] [facility] [address] [id number] [place] [address] 290[address] Jan, [facility] [place] [facility] [address] [id number] [place] [address]- 0545 Jan, [facility] [place] [facility] [address] [id number] [place] [address]- 9330 Jan, [facility] [place] [facility] [address] [id number] [place] [address]- 3478 Jan, [facility] [place] [facility] [address] [id number] [place] [address]- 9715 Jan, [facility] [place] [facility] [address] [id number] [place] [address]- 3332 Jan, [facility] [place] [facility] [address] [id number] [place] [address]- 8217 Jan, [facility] [place] [facility] [address] [id number] [place] [address]- 9172 Jan, [facility] [place] [facility] [address] [id number] [place] [address]- 5638 Jan, [facility] [place] [facility] [address] [id number] [place] [address]- 4354 Jan, [facility] [place] [facility] [address] [id number] [place] [address]- 3240 Jan, [facility] [place] [facility] [address] [id number] [place] [address]- 1082 Jan, [facility] [place] [facility] [address] [id number] [place] [address]- 7754 Jan, [facility] [place] [facility] [address] [id number] [place] [address]- 9796 Jan, [facility] [place] [facility] [address] [id number] [place] [address]- 4929 Dec, [facility] [place] [facility] [address] [id number] [place] [address]- 9453 Dec, [facility] [place] [facility] [address] [id number] [place] [address]- 6313 Dec, [facility] [place] [facility] [address] [id number] [place] [address]- 4309 Dec, [facility] [place] [facility] [address] [id number] [place] [address]- 7725 Nov, [facility] [place] [facility] [address] [id number] [place] [address]- 3796 Nov, [facility] [place] [facility] [address] [id number] [place] [address]- 7488 Nov, [facility] [place] [facility] [address] [id number] [place] [address] 1978 Nov, [facility] [place] [facility] [address] [id number] [place] [address]- 6858 Nov, [facility] [place] [facility] [address] [id number] [place] [address]- 3976 October, [facility] [place] [facility] [address] [id number] [place] [address]- 1757 October, [facility] [place] [facility] [address] [id number] [place] [address]- 9309 October, [facility] [place] [facility] [address] [id number] [place] [address]- 7066 October, [facility] [place] [facility] [address] [id number] [place] [address]- 5903 October, [facility] [place] [facility] [address] [id number] [place] [address]- 8602 October, [facility] [place] [facility] [address] [id number] [place] [address]- 4080 October, [facility] [address] [id number] [place] [address]- 3187 October, [facility] [address] [id number] [place] [address]- 4813 October, [facility] [address] [id number] [place] [address]- 8639 October, [facility] [address] [id number] [place] [address]- 1227 October, [facility] [address] [id number] [place] [address]- 2753 October, [facility] [address] [id number] [place] [address]- 7595 October, [facility] [address] [id number] [place] [address]- 6288 October, [facility] [address] [id number] [place] [address]- 4042 Sep, [facility] [address] [id number] [place] [address]- 5743 Sep, [facility] [address] [id number] [place] [address]- 0361 Sep, [facility] [place] [facility] [address] [id number] [place] [address]- 2885 Sep, [facility] [address] [id number] [place] [address]- 1349 Sep, [facility] [place] [facility] [address] [id number] [place] [address]- 8110 Sep, [facility] [place] [facility] [address] [id number] [place] [address]- 9801 Sep, [facility] [address] [id number] [place] [address]- 4152 Sep, [facility] [place] [facility] [address] [id number] [place] [address]- 7212 Sep, [facility] [place] [facility] [address] [id number] [place] [address]- 1551 Sep, [facility] [place] [facility] [address] [id number] [place] [address]- 1816 Sep, [facility] [place] [facility] [address] [id number] [place] [address]- 2108 Sep, [facility] [place] [facility] [address] [id number] [place] [address]- 9911 Sep, [facility] [place] [facility] [address] [id number] [place] [address]- 7389 Sep, [facility] [place] [facility] [address] [id number] [place] [address]- 4033 Sep, [facility] [place] [facility] [address] [id number] [place] [address]- 6921 Aug, [facility] [place] [facility] [address] [id number] [place] [address]- 0599 Aug, [facility] [place] [facility] [address] [id number] [place] [address]- 6050 Aug, [facility] [place] [facility] [address] [id number] [place] [address]- 7014 Aug, [facility] [place] [facility] [address] [id number] [place] [address]- 9520 Jul, [facility] [place] [facility] [address] [id number] [place] [address]- 4886 Jul, [facility] [place] [facility] [address] [id number] [place] [address]- 0061 Jul, [facility] [place] [facility] [address] [id number] [place] [address]- 0753 Jul, [facility] [place] [facility] [address] [id number] [place] [address]- 4530 15 Jun, 2013 [facility] [address] [id number] [place] [address]- 7259 15 Jun, 2013 [facility] [address] [id number] [place] [address]- 8732 15 Jun, 2013 [facility] [address] [id number] [place] [address]- 3799 15 Jun, 2013 [facility] [address] [id number] [place] [address]- 0512 10 Jun, 2013 [facility] [address] [id number] [place] [address]- 8277 Jun, [facility] [address] [id number] [place] [address]- 7617 08 Jun, 2013 [facility] [address] [facility] [id number] [place] [address]- 1679 08 Jun, 2013 [facility] [address] [id number] [place] [address]- 0393 20 May, 2013 [facility] [address] [id number] [place] [address]- 0994 20 May, 2013 [facility] [address] [facility] [id number] [place] [address]- 5716 18 May, 2013 [facility] [address] [id number] [place] [address]- 5316 18 May, 2013 [facility] [address] [facility] [id number] [place] [address]- 8579 17 May, 2013 [facility] [place] [facility] [address] [id number] [place] [id number] 17 May, 2013 [facility] [place] [facility] [address] [facility] [id number] [place] 7712 17 May, 2013 [facility] [place] [facility] [address] [facility] [id number] [place] [address]- 8137 17 May, 2013 [facility] [place] [facility] [address] [id number] [place] [address]- 0752 16 May, 2013 [facility] [place] [facility] [address] [id number] [place] [address]- 8386 16 May, 2013 [facility] [place] [facility] [address] [id number] [place] [address] 2546 14 May, 2013 [facility] [place] [facility] [address] [id number] [place] [address]- 7896 14 May, 2013 [facility] [place] [facility] [address] [id number] [place] [address]- 7650 13 May, 2013 [facility] [place] [facility] [address] [id number] [place] [address]- 7319 13 May, 2013 [facility] [place] [facility] [address] [id number] [place] [address]- 3828 12 May, 2013 [facility] [place] [facility] [address] [id number] [place] [address]- 3683 12 May, 2013 [facility] [address] [id number] [place] [address]- 6327 11 May, 2013 [facility] [place] [facility] [address] [id number] [place] [address]- 5583 11 May, 2013 [facility] [place] [facility] [address] [id number] [place] [address]- 1982 26 Apr, 2013 [facility] [place] [facility] [address] [id number] [place] [address]- 4035 26 Apr, 2013 [facility] [place] [facility] [address] [id number] [place] [address]- 0763 Apr, [facility] [place] [facility] [address] [id number] [place] [address]- 9885 Apr, [facility] [place] [facility] [address] [id number] [place] [address]- 1567 27 Aug, 2012 [facility] [place] [facility] [address] [id number] [place] [address]- 9473 Aug, [facility] [address] [id number] [place] [address]- 8000 Aug, [facility] [place] [facility] [address] [id number] [place] [address]- 6687 Aug, [facility] [place] [facility] [address] [facility] [id number] [place] [address]- 1736 Jul, [facility] [place] [facility] [address] [id number] [place] [address]- 6865 Jun, [facility] [place] [facility] [address] [id number] [place] [address]- 6075 Jun, [facility] [place] [facility] [address] [id number] [place] [address]- 5509 Jun, [facility] [place] [facility] [address] [id number] [place] [address]- 0812 Jun, [facility] [place] [facility] [address] [id number] [place] [address]- 2531 May, [facility] [place] [facility] [address] [id number] [place] [address]- 3539 May, [facility] [place] [facility] [address] [id number] [place] [address]- 6683 May, [facility] [place] [facility] [address] [id number], [place] [address]- 4385 May, [facility] [place] [facility] [address] [id number], [place] [address]- 4925 May, [facility] [place] [facility] [address] [id number] [place] [address]- 5494 May, [facility] [place] [facility] [address] [id number] [place] [address]- 7656 May, [facility] [place] [facility] [address] [id number] [place] [address]- 7318 Apr, [facility] [place] [facility] [address] [id number] [place] [address]- 4526 Apr, [facility] [place] [facility] [address] [id number] [place] [address]- 7135 Apr, [facility] [place] [facility] [address] [id number] [place] [address]- 9620 Apr, [facility] [place] [facility] [address] [id number] [place] [address]- 4965 Apr, [facility] [place] [facility] [address] [id number] [place] [address]- 5536 Apr, [facility] [place] [facility] [address] [id number] [place] [address]- 7435 Apr, [facility] [place] [facility] [address] [id number] [place] [address]- 3468 Mar, [facility] [place] [facility] [address] [id number] [place] [address]- 7567 Mar, [facility] [place] [facility] [address] [id number] [place] [address]- 2625 Mar, [facility] [place] [facility] [address] [id number] [place] [address]- 7099 Mar, [facility] [place] [facility] [address] [facility] [id number], [place] [address]- 9589 Mar, [facility] [place] [facility] [address] [id number] [place] [address]- 9358 Mar, [facility] [place] [facility] [address] [id number], [place] [address]- 2396 Mar, [facility] [place] [facility] [address] [id number] [place] [address]- 6111 17 Mar, 2012 [facility] [place] [facility] [address] [facility] [id number] [place] [address]- 1825 15 Mar, 2012 [facility] [place] [facility] [address] [id number], [place] [address]- 0929 Mar, [facility] [place] [facility] [address] [id number] [place] [address]- 9726 Mar, [facility] [place] [facility] [address] [id number] [place] [address]- 8698 Mar, [facility] [place] [facility] [address] [id number] [place] [address]- 7953 Feb, [facility] [place] [facility] [address] [id number] [place] [address]- 0366 Jan, [facility] [place] [facility] [address] [id number] [place] [address]- 2714 Jan, [facility] [place] [facility] [address] [id number] [place] [address]- 1807 Jan, [facility] [place] [facility] [address] [id number] [place] [address]- 4203 Jan, [facility] [place] [facility] [address] [id number] [place] [address]- 7134 Jan, [facility] [place] [facility] [address] [id number] [place] [address]- 2609 Dec, [facility] [place] [facility] [address] [id number] [place] [address]- 2979 Dec, [facility] [place] [facility] [address] [id number] [place] [address]- 2325 Nov, [facility] [place] [facility] [address] [id number] [place] [address]- 4978 Nov, [facility] [place] [facility] [address] [id number] [place] [address]- 7435 Nov, [facility] [place] [facility] [address] [id number] [place] [address]- 9968 October, [facility] [place] [facility] [address] [id number] [place] [address]- 2744 October, [facility] [place] [facility] [address] [id number] [place] [address]- 3321 October, [facility] [address] [id number] [place] [address]- 8767 October, [facility] [place] [facility] [address] [id number] [place] [address]- 9626 October, [facility] [address] [id number] [place] [address]- 7463 October, [facility] [place] [facility] [address] [id number] [place] [address]- 8534 October, [facility] [address] [id number] [place] [address]- 3693 26 Sep, 2011 [facility] [place] [facility] [address] [id number] [place] [address]- 1148 26 Sep, 2011 [facility] [address] [id number] [place] [address]- 0718 26 Sep, 2011 [facility] [place] [facility] [address] [id number] [place] [address]- 8135 25 Sep, 2011 [facility] [address] [id number] [place] [address]- 4216 24 Sep, 2011 [facility] [place] [facility] [address] [id number] [place] [address]- 6866 19 Sep, 2011 [facility] [place] [facility] [address] [id number] [place] [address]- 7532 17 Sep, 2011 [facility] [place] [facility] [address] [id number] [place] [address]- 6426 16 Sep, 2011 [facility] [place] [facility] [address] [id number] [place] [address]- 9559 16 Sep, 2011 [facility] [place] [facility] [address] [id number] [place] [address]- 0970 14 Sep, 2011 [facility] [place] [facility] [address] [id number] [place] [address]- 3028 13 Sep, 2011 [facility] [place] [facility] [address] [id number] [place] [address]- 1328 10 Sep, 2011 [facility] [place] [facility] [address] [id number] [place] [address]- 3620 09 Sep, 2011 [facility] [place] [facility] [address] [id number] [place] [address]- 5268 27 Aug, 2011 [facility] [place] [facility] [address] [id number] [place] [address]- 4069 12 Aug, 2011 [facility] [place] [facility] [address] [id number] [place] [address]- 2763 08 Aug, 2011 [facility] [place] [facility] [address] [id number] [place] [address]- 9459 06 Aug, 2011 [facility] [place] [facility] [address] [facility] [id number] [place] [address] 28 Jul, 2011 [facility] [place] [facility] [address] [id number] [place] [address] 22 Jul, 2011 [facility] [place] [facility] [address] [id number] [place] [address] 27[address] 16 Jul, 2011 [facility] [place] [facility] [address] [facility] [id number] [place] [address] 15 Jul, 2011 [facility] [place] [facility] [address] [facility] [id number] [place] [address] 14 Jul, 2011 [facility] [place] [facility] [address] [id number] [place] [address] 10 Jul, 2011 [facility] [place] [facility] [address] [id number] [place] [address] Jun, [facility] [place] [facility] [address] [id number] [place] [address] Jun, [facility] [place] [facility] [address] [id number] [place] [address] Jun, [facility] [place] [facility] [address] [id number] [place] [address] Jun, [facility] [place] [facility] [address] [id number] [place] [address] 8577 Jun, [facility] [place] [facility] [address] [id number] [place] [address] May, [facility] [place] [facility] [address] [id number] [place] [address]26 May, [facility] [place] [facility] [address] [id number] [place] [address] 14 May, 2011 [facility] [place] [facility] [address] [id number] [place] [address] 14 May, 2011 [facility] [place] [facility] [address] [id number] [place] [address] 47[address] May, [facility] [place] [facility] [address] [id number] [place] [address] 18[address] May, [facility] [place] [facility] [address] [id number] [place] [address] 9608 05 May, 2011 [facility] [place] [facility] [address] [id number] [place] [address] 6[address] 15 Apr, 2011 [facility] [place] [facility] [address] [id number] [place] [address] 7507 15 Apr, 2011 [facility] [place] [facility] [address] [id number] [place] [address] Apr, [facility] [place] [facility] [address] [id number] [place] [address]139 Apr, [facility] [place] [facility] [address] [id number] [place] [address] 6498 Apr, [facility] [place] [facility] [address] [id number] [place] [address] 1742 Apr, [facility] [place] [facility] [address] [id number] [place] [address] Mar, [facility] [place] [facility] [address] [id number] [place] [address] 2616 Mar, [facility] [address] [id number] [place] [address] Mar, [facility] [place] [facility] [address] [id number] [place] [address] 4726 Mar, [facility] [address] [id number] [place] [address] 60[address] Jan, [facility] [place] [facility] [address] [id number] [place] [address] 8774 Dec, [facility] [address] [id number] [place] [address] 30[address] Dec, [facility] [address] [id number] [place] [address] 3506 October, [facility] [address] [id number] [place] [address] 70[address] Sep, [facility] [address] [id number] [place] [address] 14 Sep, 2010 [facility] [address] [id number] [place] [address] 8568 Jul, [facility] [address] [id number] [place] [address]- [address]13 16 Jul, 2010 [facility] [address] [id number] [place] [address] 0367 May, [facility] [address] [id number] [place] [address] 477[address] May, [facility] [place] [facility] [address] [id number] [place] [address] 4[address] May, [facility] [place] [facility] [address] [id number] [place] [address] 2546 May, [facility] [place] [facility] [address] [id number] [place] [address] 7807 Apr, [facility] [place] [facility] [address] [id number] [place] [address] 8211 Apr, [facility] [place] [facility] [address] [id number] [place] [address] 6881 Apr, [facility] [place] [facility] [address] [id number] [place] [address]- 3865 Apr, [facility] [place] [facility] [address] [id number] [place] [address] 6427 Apr, [facility] [place] [facility] [address] [id number] [place] [address]- 0787 21 Mar, 2010 [facility] [place] [facility] [address] [id number] [place] [address] 8886 14 Mar, 2010 [facility] [place] [facility] [address] [id number] [place] [address] 1349 13 Mar, 2010 [facility] [place] [facility] [address] [id number], [place] [address] Mar, [facility] [place] [facility] [address] [id number] [place] [address] 4003 Jan, [facility] [place] [facility] [address] [id number], [place] [address]88 15 Dec, 2009 [facility] [place] [facility] [address] [id number], [place] [address] Sep, [facility] [place] [facility] [address] [id number], [place] [address] 9881 08 May, 2009 [facility] [place] [facility] [address] [id number] [place] [address]- 9356 May, [facility] [place] [facility] [address] [id number], [place] [address]150 May, [facility] [place] [facility] [address] [id number] [place] [address]- 1316 17 Apr, 2009 [facility] [place] [facility] [address] [id number], [place] [address]17 17 Apr, 2009 [facility] [address] [id number], [place] [address] Apr, [facility] [address] [id number], [place] [address] Apr, [facility] [id number], [place] [address] Apr, [facility] [id number], [place] [address] Mar, [facility] [id number] [place] [address] Mar, [facility] [id number], [place] [address] Jul, IMMUNIZATIONS No Known Immunizations SOCIAL HISTORY Never Assessed REASON FOR VISIT Returned call PLAN OF CARE VITAL SIGNS MEDICATIONS [...] the January before. 03/2018 Hospitalization History Cellulitis-[facility] 12/20/15 Hospitalization History [facility]- Abd pain 03/07/2017 Hospitalization History [facility]- Abd pain 03/14/2017 Hospitalization History [facility]- No bowel movement, rash 04/13/2017 Hospitalization History [facility]- Abd pain r/t kidney surgery on 04/17/2017 Hospitalization History [facility]- Abd pain r/t kidney surgery on 04/18/2017 Hospitalization History [facility]- Lower abd pain 04/30/2017 Hospitalization History [facility]- Cannot urinate 05/30/2017 Hospitalization History [facility]- Pancreatitis Sx 06/29/2017 Hospitalization History [facility]- Stomach pain 07/22/2017 Hospitalization History [facility]- Left side pain 08/12/2017 Hospitalization History [facility]- Incision site infection 08/30/2017 Hospitalization History [facility]- Post Op Seroma/Hematoma Left Abdomen. Discharged 09/04/17- Dr Daniel 09/02/2017 Hospitalization History [facility]- Right shoulder and back pain 2017 Hospitalization History [facility]- Shoulder/Back pain 11/11/2017 Hospitalization History [facility]- Right shoulder blade pain 12/04/2017 Hospitalization [facility]- C-Diff 12/13/2017 Hospitalization History C diff et MRSA 12/27/2017
--- OUTSIDE RECORDS SUMMARY | 2018-04-29 10:26 | XMS REPORT ---
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 Name Role Phone SAICORTNEY KOENIGHANY Unavailable PROBLEMS Type Condition ICD9-CM Code DKU35-FD Code Onset Dates Condition Status SNOMED Code Problem Atelectasis J98.11 Active 84309703 Problem Restless leg syndrome G25.81 Active 83717938 Problem Trichotillomania F63.3 Active 66937064 Problem Primary osteoarthritis of right knee M17.11 Active [id number] Problem Intestinal malabsorption, unspecified K90.9 Active 75953687 Problem Chronic post-traumatic stress disorder (PTSD) F43.12 Active 972202145 Problem Generalized social phobia F40.11 Active 67359650 Problem Chronic fatigue R53.82 Active 54943939 Problem Moderate episode of recurrent major depressive disorder F33.1 Active 177470752 Problem Chronic tension-type headache, intractable G44.221 Active 897474171 Problem Morbid (severe) obesity due to excess calories E66.01 Active 723157012 Problem Nodule of left lung R91.1 Active 967447963 Problem History of renal cell carcinoma Z85.528 Active 894734694 Problem FH: polycystic ovary Z84.2 Active 916799684 Problem Chronic pancreatitis K86.1 Active 106312831 Problem Hyperlipidemia, mixed E78.2 Active 356441871 Problem Asthma J45.909 Active 239240905 Problem Hirsuties L68.0 Active 542283345 Problem Polydipsia R63.1 Active 93567905 ALLERGIES No Information ENCOUNTERS Encounter Location Date Diagnosis [facility] [place] [address] [facility] [id number] [address] Mar, Rectal bleeding K62.5 [facility] [place] [address] [facility] [id number], [place] [address] Mar, Rectal bleeding K62.5 [facility] [place] [address] [id number] [place] [address] 29366- 4418 Mar, Urinary urgency R39.15 [facility] [place] [id number] [place] [address] 78416- 0432 Mar, Urinary urgency R39.15 [facility] [place] [id number] [place] [address] 17664- 8545 Mar, Primary osteoarthritis of right knee M17.11 and BMI 45.0- 49.9, adult Z68.42 [facility] [place] [id number] [place] [address] 44228- 9500 Mar, [place] [id number] [place] [address] 87254- 2473 Feb, Left upper arm pain M79.622 [place] [id number] [place] [address] 86547- 1082 Feb, [facility] [place] [id number] [place] [address] 26539- 6741 Jan, Acute pain of right knee M25.561 ; Right upper quadrant abdominal pain R10.11 and BMI 45.0-49.9, adult Z68.42 [facility] [place] [id number] [place] [address] 63215- 4618 Jan, [facility] [place] [id number] [place] [address] 28638- 1546 Jan, [facility] [place] [id number] [place] [address] 84526- 5930 Dec, [facility] [place] [id number] [place] [address] 98219- 6613 Dec, Intestinal malabsorption, unspecified K90.9 and Diarrhea, unspecified R19.7 [facility] [place] [id number] [place] [address] 57582- 4387 Dec, [facility] [place] [id number] [place] [address] 97532- 4113 Dec, Strep throat J02.0 ; Intestinal malabsorption, unspecified K90.9 ; Diarrhea, unspecified R19.7 ; Postoperative seroma involving digestive system after non-digestive system procedure K91.873 ; Hyperlipidemia, mixed E78.2 and BMI 45.0-49.9, adult Z68.42 [facility] [place] [address], [place] [address] 79[address] Dec, [facility] [place] [address], [place] [address] 5976 Dec, Nausea R11.0 [facility] [place] [id number] [place] [address] 08193- 7106 Dec, [facility] [address], [place] [address] Dec, Sore throat J02.9 ; Strep throat J02.0 and BMI 45.0-49.9, adult Z68.42 [facility] [place] [address], [place] [address] 4728 Dec, [facility] [place] [address], [place] [address]- 3381 Dec, [facility] [place] [address], [place] [address]- 8010 Dec, [facility] [place] [address], [place] [address]- 0005 Dec, [facility] [place] [address], [place] [address]- 1324 Dec, [facility] [place] [address], [place] [address]- 7052 Dec, [facility] [place] [address], [place] [address]- 2011 Dec, [facility] [place] [address], [place] [address]- 8547 Dec, [facility] [place] [address], [place] [address]- 9471 Dec, Clostridium difficile colitis A04.72 ; Intractable vomiting with nausea, unspecified vomiting type R11.2 and BMI 45.0-49.9, adult Z68.42 [facility] [place] [id number] [place] [address] 57357- 8460 Dec, [facility] [place] [id number] [place] [address] 85801- 4368 Nov, [facility] [place] [id number] [place] [address] 26272- 3514 Nov, [facility] [place] [id number] [place] [address] 76205- 5762 Nov, [facility] [place] [id number] [place] [address] 57780- 1793 Nov, [facility] [id number] [place] [address] 54828 -2025 Nov, [facility] [place] [id number] [place] [address] 57392- 1124 Nov, Hyperlipidemia, mixed E78.2 [facility] IN [facility] [id number] [place] [address] 50551 -7238 Nov, Acute suppurative otitis media of right ear without spontaneous rupture of tympanic membrane, recurrence not specified H66.001 and BMI 45.0-49.9, adult Z68.42 [facility] [place] [id number] [place] [address] 86685- 6904 Nov, Hyperlipidemia, mixed E78.2 [facility] [place] [id number] [place] [address] 03743- 9964 Nov, [facility] [place] [id number] [place] [address] 45557- 3582 Nov, [facility] [place] [id number] [place] [address] 82686- 6911 Nov, Nodule of left lung R91.1 [place] [id number] [place] [address] 90098- 5371 Nov, Medicare annual wellness visit, initial Z00.00 [...] adult Z68.42 and Encounter for immunization Z23 [place] [id number] [place] [address] 73940- 1089 October, [place] [id number] [place] [address] 08241- 9445 October, Nodule of left lung R91.1 [place] [id number] [place] [address] 09518- 2953 October, Nodule of left lung R91.1 [place] [id number] [place] [address] 25787- 1780 October, Recurrent major depressive disorder, in partial remission F33.41 ; Restless leg syndrome G25.81 ; Generalized social phobia F40.11 ; Chronic post-traumatic stress disorder (PTSD) F43.12 ; BMI 45.0-49.9, adult Z68.42 and Trichotillomania F63.3 [place] [id number] [place] [address] 99387- 4661 October, [place] [id number] [place] [address] 90455- 8564 Sep, Chronic fatigue R53.82 and BMI 45.0-49.9, adult Z68.42 [place] [id number] [place] [address] 84169- 9121 Aug, [place] [id number] [place] [address] 80997- 0020 Jul, Restless leg syndrome G25.81 and B12 deficiency E53.8 [facility] [place] [id number] [place] [address] 77938- 3808 Jul, [place] [id number] [place] [address] 95689- 5170 Jul, [place] [id number] [place] [address] 34109- 9070 Jun, [place] [address] 92873- 5727 Jun, Fatigue, unspecified type R53.83 ; History of renal cell carcinoma Z85.528 ; Chronic pancreatitis K86.1 ; Restless leg syndrome G25.81 ; Dark urine R82.99 and BMI 45.0-49.9, adult Z68.42 [place] [id number] [place] [address] 72771- 0406 Jun, [place] [id number] [place] [address] 46689- 7719 Jun, [place] [id number] [place] [address] 41150- 9028 Jun, [place] [id number] [place] [address] 04110- 8385 Jun, [place] [id number] [place] [address] 33359- 9719 May, Chronic post-traumatic stress disorder (PTSD) F43.12 ; Moderate episode of recurrent major depressive disorder F33.1 ; Trichotillomania F63.3 and Generalized social phobia F40.11 [place] [id number] [place] [address] 52682- 0704 May, [place] [id number] [place] [address] 61269- 0537 14 May, 2017 Chronic post-traumatic stress disorder (PTSD) F43.12 ; Moderate episode of recurrent major depressive disorder F33.1 ; Trichotillomania F63.3 and Generalized social phobia F40.11 [place] [address], [place] [address]- 7475 07 May, 2017 Hyperlipidemia, mixed E78.2 ; Morbid (severe) obesity due to excess calories E66.01 ; Chronic post-traumatic stress disorder (PTSD) F43.12 ; Moderate episode of recurrent major depressive disorder F33.1 ; Trichotillomania F63.3 and Generalized social phobia F40.11 [place] [id number] [place] [address] 58357- 7005 30 Apr, 2017 [place] [id number] [place] [address] 54439- 6358 29 Apr, 2017 Hyperlipidemia, mixed E78.2 ; Morbid (severe) obesity due to excess calories E66.01 ; Chronic post-traumatic stress disorder (PTSD) F43.12 ; Moderate episode of recurrent major depressive disorder F33.1 ; Trichotillomania F63.3 and Generalized social phobia F40.11 [place] [id number] [place] [address] 05227- 6923 Apr, Trichotillomania F63.3 ; Generalized social phobia F40.11 ; Chronic post-traumatic stress disorder (PTSD) F43.12 and Moderate episode of recurrent major depressive disorder F33.1 [place] [id number] [place] [address] 50467- 4172 Apr, [place] [id number] [place] [address] 23436- 7800 Apr, [place] [id number] [place] [address] 67477- 9983 Mar, Moderate episode of recurrent major depressive disorder F33.1 ; Trichotillomania F63.3 ; Chronic post-traumatic stress disorder (PTSD) F43.12 ; Generalized social phobia F40.11 and Restless leg syndrome G25.81 [facility] [place] [id number] [place] [address] 06850- 5933 Mar, [facility] [place] [id number] [place] [address] 04659- 3124 Mar, [facility] [place] [id number] [place] [address] 01937- 6628 Feb, Left kidney mass N28.89 [facility] [place] [id number] [place] [address] 83606- 5279 Jan, [facility] [place] [id number] [place] [address] 87358- 2067 Dec, Polydipsia R63.1 ; Chronic pancreatitis K86.1 and Fatigue, unspecified type R53.83 [place] [id number] [place] [address] 77373- 5529 Nov, [place] [id number] [place] [address] 66261- 6246 Nov, [facility] [place] [id number] [place] [address] 75889- 5532 Nov, Headache around the eyes R51 [place] [id number] [place] [address] 39546- 8668 Nov, [place] [id number] [place] [address] 32093- 6987 October, STD exposure Z20.2 [facility] [place] [id number] [place] [address] 49469- 2070 October, STD exposure Z20.2 [place] [id number] [place] [address] 27926- 1832 October, Chronic post-traumatic stress disorder (PTSD) F43.12 ; Generalized social phobia F40.11 ; Trichotillomania F63.3 and Restless leg syndrome G25.81 [place] [id number] [place] [address] 04254- 6339 October, [facility] [place] [id number] [place] [address] 06035- 8695 Sep, [facility] [place] [id number] [place] [address] 22848- 7285 Aug, [place] [id number] [place] [address] 11064- 5891 Aug, [place] [id number] [place] [address] 75882- 4494 Aug, Neck mass R22.1 [place] [address] 95123- 9544 Aug, Atelectasis J98.11 [place] [id number] [place] [address] 18624- 5308 28 Jul, 2016 Hyperlipidemia, mixed E78.2 ; Atypical pneumonia J18.9 and Neck mass R22.1 [place] [id number] [place] [address] 62697- 9019 15 Jul, 2016 Hemoptysis R04.2 [place] [id number] [place] [address] 19312- 5509 08 Jul, 2016 Acute non-recurrent pansinusitis J01.40 ; Hemoptysis R04.2 ; Polydipsia R63.1 and Malaise R53.81 [facility] [address] [place] [place] [id number] [place] [address] 48394 -0483 May, Other viral agents as the cause of diseases classified elsewhere B97.89 and Acute upper respiratory infection, unspecified J06.9 [facility] [place] [id number] [place] [address] 22668 -4825 Mar, Nausea R11.0 [facility] [place] [id number] [place] [address] 24060 -1257 Dec, Hives L50.9 [place] [id number] [place] [address] 33150- 4880 14 Dec, 2015 [facility] [place] [address] [id number], [place] [address] -[address]37 10 Dec, 2015 Cutaneous abscess of limb, unspecified L02.419 ; Cellulitis of unspecified part of limb L03.119 ; Encounter for incision and drainage procedure Z01.89 and Encounter for recheck of abscess following incision and drainage Z09 [facility] [place] [address], [place] [address] 09 Dec, 2015 Abscess of leg, right L02.415 [place] [address] [place] [address] 50834- 0177 08 Dec, 2015 Cellulitis of unspecified part of limb L03.119 and Cutaneous abscess of limb, unspecified L02.419 [place] [address], [place] [address]- 1243 Dec, [place] [address] [place] [address] 58241- 3529 Dec, [facility] [place] [address], [place] [address] -5477 Aug, [place] [address] [place] [address] 12714- 4913 Aug, [facility] [place] [address], [place] [address] -5210 Jul, Pain in unspecified wrist M25.539 and Back pain, thoracic M54.6 [facility] [place] [id number] [address] -4604 Jun, Strain of right wrist, initial encounter S66.911A [place] [address] [place] [address] 43291- 6808 Jun, Chronic pancreatitis, unspecified pancreatitis type K86.1 ; Hirsuties L68.0 ; Morbid (severe) obesity due to excess calories E66.01 ; Chronic pancreatitis K86.1 and Asthma J45.909 [facility] [place] [id number] [place] [address] 89794- 2465 May, [facility] [place] [address] 74059- 4694 May, Hyperlipidemia, mixed E78.2 and Muscle spasm of back M62.830 [facility] [place] [address] 05389- 1856 Apr, [facility] [place] [address] 02755- 0871 Apr, Torticollis M43.6 [facility] [place] [address] 02304- 1076 Apr, Right-sided thoracic back pain M54.6 [facility] [place] [address] 14383- 0183 Mar, Rash R21 [facility] [place] [address] 00779- 1834 Mar, [facility] [place] [id number] [place] [address] 54097- 5575 Jan, [facility] [place] [id number] [place] [address] 66952- 1495 Dec, [facility] [place] [id number] [place] [address] 32116- 8748 Dec, Urinary frequency 788.41 and Nocturia more than twice per night 788.43 [facility] [place] [id number] [place] [address] 70491- 1876 Nov, [facility] [place] [address] 76595- 4218 Nov, [facility] [place] [id number] [place] [address] 17416- 5684 Nov, Abdominal pain 789.00 [facility] [place] [address] 07321- 5552 October, TDAP DX V06.1 [facility] [place] [address], [place] [address]- 8271 October, [facility] [place] [id number] [address]- 1397 October, Disturbance of skin sensation 782.0 ; Wrist pain, right 719.43 ; Hyperlipidemia 272.4 and Skin lesion of face 709.9 [facility] [place] [id number] [address]- 4697 Sep, [facility] [place] [id number] [place] [address] 27886- 8486 Sep, [facility] [place] [id number] [place] [address] 25490- 1087 Aug, [facility] [place] [id number] [place] [address] 82085- 1138 Aug, [facility] [place] [address], [place] [address]- 9065 Aug, [facility] [place] [address], [place] [address]- 9103 Aug, [facility] [place] [address], [place] [address]- 1969 Aug, [facility] [place] [address], [place] [address]- 1288 16 Aug, 2014 [facility] [place] [address], [place] [address]- 3323 Aug, [facility] [place] [address], [place] [address]- 9514 Aug, [facility] [place] [address] 0073 Aug, [facility] [place] [address], [place] [address]- 1004 Aug, [facility] [place] [facility] [address] [id number] [place] [address]- 7326 Aug, [facility] [place] [facility] [address] [id number] [place] [address]- 7580 Aug, [facility] [place] [facility] [address] [id number] [place] 1116 Aug, [facility] [place] [facility] [address] [id number] [place] [address]- 6468 Aug, [facility] [place] [facility] [address] [id number] [place] [address]- 0897 Jul, [facility] [place] [facility] [address] [id number] [place] [address]- 7694 Jul, [facility] [place] [facility] [address] [id number] [place] [address] Jul, [facility] [place] [facility] [address] [id number] [place] [address] Jul, [facility] [place] [facility] [address] [id number] [place] [address] Jul, [facility] [place] [facility] [address] [id number] [place] [address] Jul, [facility] [place] [facility] [address] [id number] [place] [address] Jun, [facility] [place] [facility] [address] [id number], [place] [address] Jun, [facility] [place] [facility] [address] [id number] [place] [address] Jun, [facility] [place] [facility] [address] [id number] [place] [address] Jun, [facility] [place] [facility] [address] [id number] [place] [address] Jun, [facility] [place] [facility] [address] [id number], [place] [address] Jun, [facility] [place] [facility] [address] [id number] [place] [address] 15 Jun, 2014 [facility] [place] [facility] [address] [id number] [place] 15 Jun, 2014 [facility] [place] [facility] [address] [id number] [place] [address] May, [facility] [place] [facility] [address] [id number] [place] [address] May, [facility] [place] [facility] [address] [id number] [place] [address] May, [facility] [place] [facility] [address] [id number] [place] [address] May, [facility] [place] [facility] [address] [id number] [place] [address] May, [facility] [place] [facility] [address] [id number] [place] [address] May, [facility] [place] [facility] [address] [id number] [place] [address] May, [facility] [place] [facility] [address] [id number] [place] [address] May, [facility] [place] [facility] [address] [id number] [place] [address] May, [facility] [place] [facility] [address] [id number] [place] [address] May, [facility] [place] [facility] [address] [id number] [place] [address] May, [facility] [place] [facility] [address] [id number] [place] [address] May, [facility] [place] [facility] [address] [id number] [place] [address] Apr, [facility] [place] [facility] [address] [id number] [place] [address] Apr, [facility] [place] [facility] [address] [id number] [place] [address] Apr, [facility] [place] [facility] [address] [id number] [place] [address] Apr, [facility] [place] [facility] [address] [id number] [place] [address] Apr, [facility] [place] [facility] [address] [id number] [place] [address] Apr, [facility] [place] [facility] [address] [id number] [place] [address] Apr, [facility] [place] [facility] [address] [id number] [place] [address] Apr, [facility] [place] [facility] [address] [id number] [place] [address] Apr, [facility] [place] [facility] [address] [id number] [place] [address] Apr, [facility] [place] [facility] [address] [id number] [place] [address] Apr, [facility] [place] [facility] [address] [id number] [place] [address] Apr, [facility] [place] [facility] [address] [address] [id number] [place] [address] 77[address] Mar, [facility] [place] [facility] [address] [id number] [place] [address] Mar, [facility] [place] [facility] [address] [id number] [place] [address] 7508 Mar, [facility] [place] [facility] [address] [id number] [place] [address] 6658 Mar, [facility] [place] [facility] [address] [id number] [place] [address] 9629 Feb, [facility] [place] [facility] [address] [id number] [place] [address]- 0535 Feb, 2013 [facility] [place] [facility] [address] [id number] [place] [address]- 1099 Feb, 2013 [facility] [place] [facility] [address] [id number] [place] [address]- 9331 Feb, 2013 [facility] [place] [facility] [address] [id number] [place] [address]- 6715 Feb, 2013 [facility] [place] [facility] [address] [id number] [place] [address]- 7378 Feb, 2013 [facility] [place] [facility] [address] [id number] [place] [address] 6749 Jan, [facility] [place] [facility] [address] [id number] [place] [address]- 7529 Jan, [facility] [place] [facility] [address] [id number] [place] [address]- 9594 Jan, [facility] [place] [facility] [address] [id number] [place] [address]- 5304 Jan, [facility] [place] [facility] [address] [id number] [place] [address]- 3982 Jan, [facility] [place] [facility] [address] [id number] [place] [address]- 6832 Jan, [facility] [place] [facility] [address] [id number] [place] [address]- 1737 Jan, [facility] [place] [facility] [address] [id number] [place] [address]- 6848 Jan, [facility] [place] [facility] [address] [id number] [place] [address]- 7788 Jan, [facility] [place] [facility] [address] [id number] [place] [address]- 9114 Jan, [facility] [place] [facility] [address] [id number] [place] [address]- 9576 Jan, [facility] [place] [facility] [address] [id number] [place] [address]- 6640 Jan, [facility] [place] [facility] [address] [id number] [place] [address]- 0406 Jan, [facility] [place] [facility] [address] [id number] [place] [address]- 5411 Jan, [facility] [place] [facility] [address] [id number] [place] [address]- 2658 Dec, [facility] [place] [facility] [address] [id number] [place] [address]- 5073 Dec, [facility] [place] [facility] [address] [id number] [place] [address]- 6318 Dec, [facility] [place] [facility] [address] [id number] [place] [address]- 2834 Dec, [facility] [place] [facility] [address] [id number] [place] [address]- 5633 Nov, [facility] [place] [facility] [address] [id number] [place] [address]- 0863 Nov, [facility] [place] [facility] [address] [id number] [place] [address]- 8988 Nov, [facility] [place] [facility] [address] [id number] [place] [address]- 0950 Nov, [facility] [place] [facility] [address] [id number] [place] [address]- 6037 Nov, [facility] [place] [facility] [address] [id number] [place] [address]- 4657 October, [facility] [place] [facility] [address] [id number] [place] [address]- 0351 October, [facility] [place] [facility] [address] [id number] [place] [address]- 3322 October, [facility] [place] [facility] [address] [id number] [place] [address]- 7892 October, [facility] [place] [facility] [address] [id number] [place] [address]- 9471 October, [facility] [place] [facility] [address] [id number] [place] [address]- 0976 October, [facility] [place] [facility] [address] [id number] [place] [address]- 5087 October, [facility] [place] [facility] [address] [id number] [place] [address]- 2397 October, [facility] [place] [facility] [address] [id number] [place] [address]- 1176 October, [facility] [place] [facility] [address] [id number] [place] [address]- 4908 October, [facility] [place] [facility] [address] [id number] [place] [address]- 3347 October, [facility] [place] [facility] [address] [id number] [place] [address]- 6490 October, [facility] [place] [facility] [address] [id number] [place] [address]- 7453 October, [facility] [place] [facility] [address] [id number] [place] [address]- 4210 October, [facility] [place] [facility] [address] [id number] [place] [address]- 0307 Sep, [facility] [place] [facility] [address] [id number] [place] [address]- 9809 Sep, [facility] [place] [facility] [address] [id number] [place] [address]- 5216 Sep, [facility] [place] [facility] [address] [id number] [place] [address]- 7888 Sep, [facility] [place] [facility] [address] [id number] [place] [address]- 8267 Sep, [facility] [place] [facility] [address] [id number] [place] [address]- 5964 Sep, [facility] [place] [facility] [address] [id number] [place] [address]- 1984 Sep, [facility] [place] [facility] [address] [id number] [place] [address]- 4679 Sep, [facility] [place] [facility] [address] [id number] [place] [address]- 6201 Sep, [facility] [place] [facility] [address] [id number] [place] [address]- 0202 Sep, [facility] [place] [facility] [address] [id number] [place] [address]- 0543 Sep, [facility] [place] [facility] [address] [id number] [place] [address]- 1547 Sep, [facility] [place] [facility] [address] [id number] [place] [address]- 7117 Sep, [facility] [place] [facility] [address] [id number] [place] [address]- 0529 Sep, [facility] [place] [facility] [address] [id number] [place] [address]- 0946 Sep, [facility] [place] [facility] [address] [id number] [place] [address]- 9461 Aug, [facility] [place] [facility] [address] [id number] [place] [address]- 0254 Aug, [facility] [place] [facility] [address] [id number] [place] [address]- 4793 Aug, [facility] [place] [facility] [address] [id number] [place] [address]- 9012 Aug, [facility] [place] [facility] [address] [id number] [place] [address]- 6317 Jul, [facility] [place] [facility] [address] [id number] [place] [address]- 2537 06 Jul, 2013 [facility] [address] [id number] [place] [address]- 2096 Jul, [facility] [place] [facility] [address] [id number] [place] [address]- 5646 Jul, [facility] [address] [id number] [place] [address]- 3914 Jun, [facility] [place] [facility] [address] [id number] [place] [address]- 6914 Jun, [facility] [address] [id number] [place] [address]- 8097 Jun, [facility] [address] [id number] [place] [address]- 6006 Jun, [facility] [address] [id number] [place] [address]- 3787 Jun, [facility] [address] [id number] [place] [address]- 9337 Jun, [facility] [address] [id number] [place] [address]- 7046 Jun, [facility] [address] [id number] [place] [address]- 0850 Jun, [facility] [address] [id number] [place] [address]- 9526 May, [facility] [place] [facility] [address] [id number] [place] [address]- 3977 May, [facility] [place] [facility] [address] [id number] [place] [address]- 8656 May, [facility] [place] [facility] [address] [id number] [place] [address]- 9276 May, [facility] [place] [facility] [address] [id number] [place] [address]- 6601 May, [facility] [place] [facility] [address] [id number] [place] [id number] 17 May, 2013 [facility] [place] [facility] [address] [id number] [place] [address]- 6542 17 May, 2013 [facility] [place] [facility] [address] [id number] [place] [address] 17 May, 2013 [facility] [place] [facility] [address] [id number] [place] [address]- 3890 16 May, 2013 [facility] [place] [facility] [address] [id number] [place] [address]87 16 May, 2013 [facility] [place] [facility] [address] [id number] [place] [address]- 2322 14 May, 2013 [facility] [place] [facility] [address] [id number] [place] [address]- 3404 14 May, 2013 [facility] [place] [facility] [address] [id number] [place] [address]- 3978 13 May, 2013 [facility] [place] [facility] [address] [id number] [place] [address]- 9689 13 May, 2013 [facility] [place] [facility] [address] [id number] [place] [address]- 3119 12 May, 2013 [facility] [place] [facility] [address] [id number], [place] [address]- 7315 12 May, 2013 [facility] [place] [facility] [address] [id number], [place] [address]- 6735 11 May, 2013 [facility] [place] [facility] [address] [id number] [place] [address]- 0129 11 May, 2013 [facility] [place] [facility] [address] [id number], [place] [address]- 4740 26 Apr, 2013 [facility] [place] [facility] [address] [id number][place] 8486 Apr, [facility] [place] [facility] [address] [id number], [place] [address]- 5715 Apr, [facility] [address] [id number] [place] [address]- 5362 Apr, [facility] [address] [id number] [place] [address]- 0474 Aug, [facility] [address] [id number] [place] [address]- 3183 Aug, [facility] [address] [id number] [place] [address]- 9052 Aug, [facility] [address] [id number] [place] [address]- 5018 Aug, [facility] [address] [id number] [place] [address]- 7953 Jul, [facility] [address] [id number] [place] [address]- 9906 Jun, [facility] [address] [id number] [place] [address]- 8876 Jun, [facility] [address] [facility] [id number] [place] [address]- 9293 Jun, [facility] [address] [facility] [id number] [place] [address]- 1362 Jun, [facility] [address] [id number] [place] [address]- 6057 May, [facility] [address] [id number] [place] [address]- 0542 May, [facility] [address] [id number] [place] [address]- 0852 May, [facility] [address] [id number] [place] [address]- 6635 May, [facility] [address] [facility] [id number] [place] [address]- 0695 May, [facility] [place] [facility] [address] [id number] [place] [address]- 8388 May, [facility] [place] [facility] [address] [id number] [place] 4667 May, [facility] [place] [facility] [address] [id number] [place] [address]- 3626 Apr, [facility] [place] [facility] [address] [id number] [place] [address]- 9763 Apr, [facility] [place] [facility] [address] [id number] [place] [address]- 3852 Apr, [facility] [place] [facility] [address] [id number] [place] [address]- 9734 Apr, [facility] [place] [facility] [address] [id number] [place] [address]- 2453 Apr, [facility] [place] [facility] [address] [id number] [place] [address]- 1182 Apr, [facility] [place] [facility] [address] [id number] [place] [address]- 6936 Apr, [facility] [place] [facility] [address] [id number] [place] [address]- 1298 Mar, [facility] [place] [facility] [address] [id number] [place] [address]- 2996 Mar, [facility] [place] [facility] [address] [id number] [place] [address]- 8307 Mar, [facility] [place] [facility] [address] [id number] [place] [address]- 4389 Mar, [facility] [place] [facility] [address] [id number] [place] [address]- 6564 Mar, [facility] [place] [facility] [address] [id number] [place] [address]- 1641 Mar, [facility] [place] [facility] [address] [id number], [place] [address]- 6966 Mar, [facility] [place] [facility] [address] [id number] [place] [address]- 0525 Mar, [facility] [place] [facility] [address] [id number] [place] [address]- 1006 Mar, [facility] [place] [facility] [address] [id number] [place] [address] 2546 Mar, [facility] [place] [facility] [address] [id number] [place] [address]- 7739 Mar, [facility] [place] [facility] [address] [id number] [place] [address]- 8319 Mar, [facility] [place] [facility] [address] [id number] [place] [address]- 2864 Feb, [facility] [place] [facility] [address] [id number] [place] [address]- 4950 Jan, [facility] [place] [facility] [address] [id number], [place] [address]- 2632 Jan, [facility] [place] [facility] [address] [id number] [place] [address]- 6058 Jan, [facility] [place] [facility] [address] [id number], [place] [address]- 9239 Jan, [facility] [place] [facility] [address] [id number], [place] [address]- 9386 Jan, [facility] [place] [facility] [address] [id number], [place] [address]- 9984 Dec, [facility] [place] [facility] [address] [id number] [place] [address] 2542 Dec, [facility] [place] [facility] [address] [facility] [id number], [place] [address]- 8706 Nov, [facility] [place] [facility] [address] [id number][place] [address]- 2546 Nov, [facility] [place] [facility] [address] [id number] [place] [address]- 4054 Nov, [facility] [address] [id number] [place] [address]- 5650 October, [facility] [address] [id number] [place] [address]- 5249 October, [facility] [address] [id number] [place] [address]- 2475 October, [facility] [address] [id number] [place] [address]- 1873 October, [facility] [address] [id number] [place] [address]- 8804 October, [facility] [address] [id number] [place] [address]- 1177 October, [facility] [address] [id number] [place] [address]- 1942 October, [facility] [address] [id number] [place] [address]- 0023 Sep, [facility] [address] [id number] [place] [address]- 7069 Sep, [facility] [address] [id number] [place] [address]- 6957 Sep, [facility] [address] [id number] [place] [address]- 2976 Sep, [facility] [address] [id number] [place] [address]- 4253 24 Sep, 2011 [facility] [place] [facility] [address] [id number] [place] [address]- 1063 19 Sep, 2011 [facility] [place] [facility] [address] [id number] [place] [address]- 0791 17 Sep, 2011 [facility] [address] [id number] [place] [address]- 4066 16 Sep, 2011 [facility] [place] [facility] [address] [id number] [place] [address]- 4437 16 Sep, 2011 [facility] [place] [facility] [address] [id number] [place] [address]- 0196 14 Sep, 2011 [facility] [place] [facility] [address] [id number] [place] [address]- 4636 13 Sep, 2011 [facility] [place] [facility] [address] [id number] [place] [address]- 4224 10 Sep, 2011 [facility] [address] [id number] [place] [address]- 9375 09 Sep, 2011 [facility] [place] [facility] [address] [id number] [place] [address]- 2464 27 Aug, 2011 [facility] [place] [facility] [address] [id number] [place] [address]- 9912 12 Aug, 2011 [facility] [place] [facility] [address] [id number] [place] [address]- 0991 08 Aug, 2011 [facility] [place] [facility] [address] [id number] [place] [address]- 8987 06 Aug, 2011 [facility] [place] [facility] [address] [id number] [place] [address]- 1404 28 Jul, 2011 [facility] [place] [facility] [address] [id number] [place] [address]- 1407 22 Jul, 2011 [facility] [place] [facility] [address] [id number] [place] [address]- 5046 16 Jul, 2011 [facility] [place] [facility] [address] [id number] [place] [address]- 3381 15 Jul, 2011 [facility] [place] [facility] [address] [id number] [place] [address]- 4176 14 Jul, 2011 [facility] [place] [facility] [address] [id number] [place] [address]- 4773 10 Jul, 2011 [facility] [place] [facility] [address] [id number] [place] [address]- 1503 30 Jun, 2011 [facility] [address] [id number] [place] [address]- 4626 Jun, [facility] [address] [id number] [place] [address]- 7138 Jun, [facility] [address] [id number] [place] [address]- 8088 Jun, [facility] [address] [id number] [place] [address]- 2523 Jun, [facility] [address] [id number] [place] [address]- 5936 May, [facility] [address] [id number] [place] [address]- 6615 May, [facility] [address] [id number] [place] [address]- 8216 14 May, 2011 [facility] [place] [facility] [address] [id number] [place] [address]- 8029 14 May, 2011 [facility] [address] [id number] [place] [address]- 2652 May, [facility] [address] [id number] [place] [address]- 4143 May, [facility] [address] [id number] [place] [address]- 7458 05 May, 2011 [facility] [place] [facility] [address] [id number] [place] [address]- 4095 15 Apr, 2011 [facility] [place] [facility] [address] [id number] [place] [address]- 8388 15 Apr, 2011 [facility] [place] [facility] [address] [id number] [place] [address] Apr, [facility] [place] [facility] [address] [id number] [place] [address] 07 Apr, 2011 [facility] [place] [facility] [address] [id number] [place] [address] Apr, [facility] [place] [facility] [address] [id number] [place] [address] Apr, [facility] [place] [facility] [address] [id number] [place] [address] Mar, [facility] [place] [facility] [address] [id number] [place] [address] Mar, [facility] [place] [facility] [address] [id number] [place] [address] Mar, [facility] [place] [facility] [address] [id number] [place] [address] Mar, [facility] [place] [facility] [address] [id number] [place] [address] Jan, [facility] [place] [facility] [address] [id number] [place] [address] Dec, [facility] [place] [facility] [address] [id number] [place] [address] 9435 Dec, [facility] [place] [facility] [address] [id number] [place] [address] October, [facility] [place] [facility] [address] [id number] [place] [address] Sep, [facility] [place] [facility] [address] [id number] [place] [address] 14 Sep, 2010 [facility] [place] [facility] [address] [id number] [place] [address] Jul, [facility] [place] [facility] [address] [id number] [place] [address]166 16 Jul, 2010 [facility] [place] [facility] [address] [id number] [place] [address] 87[address] May, [facility] [place] [facility] [address] [id number] [address] May, [facility] [place] [facility] [address] [id number] [place] [address] 7029 08 May, 2010 [facility] [place] [facility] [address] [id number] [place] [address] 5866 May, [facility] [place] [facility] [address] [id number] [place] [address] 8116 Apr, [facility] [place] [facility] [address] [id number] [place] [address] Apr, [facility] [place] [facility] [address] [id number] [place] [address] 8625 Apr, [facility] [place] [facility] [address] [id number] [place] [address] Apr, [facility] [place] [facility] [address] [id number] [place] [address] 75[address] Apr, [facility] [place] [facility] [address] [id number] [place] [address] Mar, [facility] [place] [facility] [address] [id number] [place] [address] 14 Mar, 2010 [facility] [place] [facility] [address] [id number] [place] [address] Mar, [facility] [place] [facility] [address] [id number], [place] [address] Mar, [facility] [place] [facility] [address] [id number], [place] [address] Jan, [facility] [place] [facility] [address] [id number] [place] [address]367 15 Dec, 2009 [facility] [place] [facility] [address] [id number], [place] [address] 10 Sep, 2009 [facility] [place] [facility] [address] [id number] [place] [address] 7883 May, [facility] [place] [facility] [id number], [place] [address] May, [facility] [place] [id number], [place] [address] May, [facility] [place] [id number], [place] [address] Apr, [facility] [place] [id number], [place] [address] Apr, [facility] [place] [id number] [place] [address] Apr, [facility] [place] [id number] [place] [address]- [address]23 Apr, [facility] [place] [id number] [place] [address]- [address]1 Apr, [facility] [place] [id number] [place] [address] Mar, [facility] [place] [id number], [place] [address] Mar, [facility] [place] [id number], [place] [address] Jul, IMMUNIZATIONS No Known Immunizations SOCIAL HISTORY [...] the January before. 03/2018 Hospitalization History Cellulitis-[facility] 12/20/15 Hospitalization History [facility] [place]- Abd pain 03/07/2017 Hospitalization History [facility] [place]- Abd pain 03/14/2017 Hospitalization History [facility] [place]- No bowel movement, rash 04/13/2017 Hospitalization History [facility] [place]- Abd pain r/t kidney surgery on 04/17/2017 Hospitalization History [facility] [place]- Abd pain r/t kidney surgery on 04/18/2017 Hospitalization History [facility] [place]- Lower abd pain 04/30/2017 Hospitalization History [facility] [place]- Cannot urinate 05/30/2017 Hospitalization History [facility]- Pancreatitis Sx 06/29/2017 Hospitalization History [facility] [place]- Stomach pain 07/22/2017 Hospitalization History [facility] [place]- Left side pain 08/12/2017 Hospitalization History [facility]- Incision site infection 08/30/[address] [facility]- Post Op Seroma/Hematoma Left Abdomen. Discharged 09/04/17- Dr Daniel 09/02/2017 Hospitalization History [facility] [place]- Right shoulder and back pain 2017 Hospitalization History [facility] [place] [facility]- Shoulder/Back pain 11/11/2017 Hospitalization History [facility] [place]- Right shoulder blade pain 12/04/2017 Hospitalization History [facility]- C-Diff 12/13/2017 Hospitalization History C diff et MRSA 12/27/2017
--- OUTSIDE RECORDS SUMMARY | 2018-04-29 10:27 | XMS REPORT ---
Author Author SAI CARMEN Organization [facility] Address [address] [place] [address] Care Team Providers Care Load Out Worker Name Role Phone SAICORTNEY KOENIGHANY Unavailable PROBLEMS Type Condition ICD9-CM Code NPI09-RC Code Onset Dates Condition Status SNOMED Code Problem Atelectasis J98.11 Active 63222920 Problem Restless leg syndrome G25.81 Active 62629085 Problem Trichotillomania F63.3 Active 56770261 Problem Primary osteoarthritis of right knee M17.11 Active [id number] Problem Intestinal malabsorption, unspecified K90.9 Active 84571497 Problem Chronic post-traumatic stress disorder (PTSD) F43.12 Active 340203040 Problem Generalized social phobia F40.11 Active 65322328 Problem Chronic fatigue R53.82 Active 99338490 Problem Moderate episode of recurrent major depressive disorder F33.1 Active 299735394 Problem Chronic tension-type headache, intractable G44.221 Active 922748558 Problem Morbid (severe) obesity due to excess calories E66.01 Active 899847055 Problem Nodule of left lung R91.1 Active 778135219 Problem History of renal cell carcinoma Z85.528 Active 476544317 Problem FH: polycystic ovary Z84.2 Active 139404348 Problem Chronic pancreatitis K86.1 Active 220107277 Problem Hyperlipidemia, mixed E78.2 Active 779656349 Problem Asthma J45.909 Active 177907969 Problem Hirsuties L68.0 Active 200597934 Problem Polydipsia R63.1 Active 18692540 ALLERGIES No Information ENCOUNTERS Encounter Location Date Diagnosis [facility] [address] [facility] [id number] [address] Mar, Rectal bleeding K62.5 [facility] [address] [facility] [id number] [address] Mar, Rectal bleeding K62.5 [facility] [address] [place] [id number] [place] [address] 18644- 9920 Mar, Urinary urgency R39.15 [facility] [address] [id number] [place] [address] 65662- 9561 Mar, Urinary urgency R39.15 [facility] [address] [id number] [place] [address] 13610- 1770 Mar, Primary osteoarthritis of right knee M17.11 and BMI 45.0- 49.9, adult Z68.42 [facility] [address] [id number] [place] [address] 52992- 4537 Mar, [place] [address] [id number] [place] [address] 58491- 9831 Feb, Left upper arm pain M79.622 [place] [address] [id number] [place] [address] 53725- 5034 Feb, [facility] [id number] [place] [address] 61836- 5813 Jan, Acute pain of right knee M25.561 ; Right upper quadrant abdominal pain R10.11 and BMI 45.0-49.9, adult Z68.42 [facility] [id number] [place] [address] 41697- 1253 Jan, [facility] [address] [id number] [place] [address] 81727- 7697 Jan, [facility] [id number] [place] [address] 36248- 8394 Dec, [facility] [id number] [place] [address] 97097- 9012 Dec, Intestinal malabsorption, unspecified K90.9 and Diarrhea, unspecified R19.7 [facility] [id number] [place] [address] 90921- 2616 Dec, [facility] [id number] [place] [address] 95861- 3655 Dec, Strep throat J02.0 ; Intestinal malabsorption, unspecified K90.9 ; Diarrhea, unspecified R19.7 ; Postoperative seroma involving digestive system after non-digestive system procedure K91.873 ; Hyperlipidemia, mixed E78.2 and BMI 45.0-49.9, adult Z68.42 [facility] [address] [address] 0692 Dec, [facility] [address] [address] 0441 Dec, Nausea R11.0 [facility] [id number] [place] [address] 45477- 0812 Dec, [facility] [address] [address] Dec, Sore throat J02.9 ; Strep throat J02.0 and BMI 45.0-49.9, adult Z68.42 [facility] [address] [address] 5265 Dec, [facility] [address] [address] 8399 Dec, [facility] [address] [address]- 8993 Dec, [facility] [address] [address]- 6578 Dec, [facility] [address] [address]- 5481 Dec, [facility] [address] [address]- 3326 Dec, [facility] [address] [address]- 0301 Dec, [facility] [address] [address]- 6602 Dec, [facility] [address] [address]- 0428 Dec, Clostridium difficile colitis A04.72 ; Intractable vomiting with nausea, unspecified vomiting type R11.2 and BMI 45.0-49.9, adult Z68.42 [facility] [id number] [place] [address] 94261- 1844 Dec, [facility] [id number] [place] [address] 91938- 5790 Nov, [facility] [id number] [place] [address] 66641- 9803 Nov, [facility] [id number] [place] [address] 33054- 3345 Nov, [facility] [id number] [place] [address] 48322- 0047 Nov, [facility] [id number] [place] [address] 92140 -2099 Nov, [facility] [id number] [place] [address] 91720- 0099 Nov, Hyperlipidemia, mixed E78.2 [facility] [id number] [place] [address] 60406 -2293 Nov, Acute suppurative otitis media of right ear without spontaneous rupture of tympanic membrane, recurrence not specified H66.001 and BMI 45.0-49.9, adult Z68.42 [facility] [id number] [place] [address] 53296- 9381 Nov, Hyperlipidemia, mixed E78.2 [facility] [id number] [place] [address] 96107- 1532 Nov, [facility] [id number] [place] [address] 40471- 1235 Nov, [facility] [id number] [place] [address] 83956- 8471 Nov, Nodule of left lung R91.1 [place] [id number] [place] [address] 72169- 1941 Nov, Medicare annual wellness visit, initial Z00.00 [...] adult Z68.42 and Encounter for immunization Z23 [place] [id number] [place] [address] 79795- 7072 October, [place] [id number] [place] [address] 74644- 3579 October, Nodule of left lung R91.1 [place] [id number] [place] [address] 05885- 8399 October, Nodule of left lung R91.1 [place] [id number] [place] [address] 31184- 2419 October, Recurrent major depressive disorder, in partial remission F33.41 ; Restless leg syndrome G25.81 ; Generalized social phobia F40.11 ; Chronic post-traumatic stress disorder (PTSD) F43.12 ; BMI 45.0-49.9, adult Z68.42 and Trichotillomania F63.3 [place] [id number] [place] [address] 19992- 2724 October, [place] [id number] [place] [address] 10064- 0536 Sep, Chronic fatigue R53.82 and BMI 45.0-49.9, adult Z68.42 [place] [id number] [place] [address] 34589- 2096 Aug, [place] [id number] [place] [address] 32597- 6232 Jul, Restless leg syndrome G25.81 and B12 deficiency E53.8 [facility] [id number] [place] [address] 61016- 2732 Jul, [place] [id number] [place] [address] 31916- 8193 Jul, [place] [id number] [place] [address] 83865- 8628 Jun, [place] [address] 81116- 3058 Jun, Fatigue, unspecified type R53.83 ; History of renal cell carcinoma Z85.528 ; Chronic pancreatitis K86.1 ; Restless leg syndrome G25.81 ; Dark urine R82.99 and BMI 45.0-49.9, adult Z68.42 [place] [id number] [place] [address] 12189- 6718 Jun, [place] [id number] [place] [address] 76156- 4890 Jun, [place] [id number] [place] [address] 87678- 0166 Jun, [place] [id number] [place] [address] 42430- 3572 Jun, [place] [id number] [place] [address] 17846- 9450 May, Chronic post-traumatic stress disorder (PTSD) F43.12 ; Moderate episode of recurrent major depressive disorder F33.1 ; Trichotillomania F63.3 and Generalized social phobia F40.11 [place] [id number] [place] [address] 30634- 2921 May, [place] [id number] [place] [address] 07605- 7788 14 May, 2017 Chronic post-traumatic stress disorder (PTSD) F43.12 ; Moderate episode of recurrent major depressive disorder F33.1 ; Trichotillomania F63.3 and Generalized social phobia F40.11 [place] [address] [address]- 9989 07 May, 2017 Hyperlipidemia, mixed E78.2 ; Morbid (severe) obesity due to excess calories E66.01 ; Chronic post-traumatic stress disorder (PTSD) F43.12 ; Moderate episode of recurrent major depressive disorder F33.1 ; Trichotillomania F63.3 and Generalized social phobia F40.11 [place] [id number] [place] [address] 67216- 9190 30 Apr, 2017 [place] [address] [id number] [place] [address] 15662- 4866 29 Apr, 2017 Hyperlipidemia, mixed E78.2 ; Morbid (severe) obesity due to excess calories E66.01 ; Chronic post-traumatic stress disorder (PTSD) F43.12 ; Moderate episode of recurrent major depressive disorder F33.1 ; Trichotillomania F63.3 and Generalized social phobia F40.11 [place] [address] [id number] [place] [address] 96091- 3724 Apr, Trichotillomania F63.3 ; Generalized social phobia F40.11 ; Chronic post-traumatic stress disorder (PTSD) F43.12 and Moderate episode of recurrent major depressive disorder F33.1 [place] [id number] [place] [address] 21407- 8570 Apr, [place] [id number] [place] [address] 26967- 6712 Apr, [place] [address] [id number] [place] [address] 99453- 6196 Mar, Moderate episode of recurrent major depressive disorder F33.1 ; Trichotillomania F63.3 ; Chronic post-traumatic stress disorder (PTSD) F43.12 ; Generalized social phobia F40.11 and Restless leg syndrome G25.81 [facility] [id number] [place] [address] 67959- 0240 Mar, [facility] [id number] [place] [address] 09894- 3300 Mar, [facility] [id number] [place] [address] 67617- 4352 Feb, Left kidney mass N28.89 [facility] [id number] [place] [address] 73211- 2481 Jan, [facility] [id number] [place] [address] 39809- 5360 Dec, Polydipsia R63.1 ; Chronic pancreatitis K86.1 and Fatigue, unspecified type R53.83 [place] [address] [id number] [place] [address] 62273- 4252 Nov, [place] [address] [id number] [place] [address] 79981- 8722 Nov, [facility] [id number] [place] [address] 84274- 0816 Nov, Headache around the eyes R51 [place] [address] [place] [id number] [place] [address] 73742- 3876 Nov, [place] [address] [id number] [place] [address] 97203- 1170 October, STD exposure Z20.2 [facility] [id number] [place] [address] 70236- 0526 October, STD exposure Z20.2 [place] [address] [id number] [place] [address] 70234- 7761 October, Chronic post-traumatic stress disorder (PTSD) F43.12 ; Generalized social phobia F40.11 ; Trichotillomania F63.3 and Restless leg syndrome G25.81 [place] [address] [place] [id number] [place] [address] 83550- 6480 October, [facility] [id number] [place] [address] 14488- 8231 Sep, [facility] [id number] [place] [address] 79941- 1578 Aug, [place] [address] [id number] [place] [address] 36204- 8971 Aug, [place] [address] [address] [id number] [place] [address] 47600- 1751 Aug, Neck mass R22.1 [place] [address] 67012- 5094 Aug, Atelectasis J98.11 [place] [address] [id number] [place] [address] 32115- 3656 28 Jul, 2016 Hyperlipidemia, mixed E78.2 ; Atypical pneumonia J18.9 and Neck mass R22.1 [place] [address] [id number] [place] [address] 91467- 8289 15 Jul, 2016 Hemoptysis R04.2 [place] [address] [place] [id number] [place] [address] 80329- 1018 08 Jul, 2016 Acute non-recurrent pansinusitis J01.40 ; Hemoptysis R04.2 ; Polydipsia R63.1 and Malaise R53.81 [facility] [address] [place] [id number] [place] [address] 74192 -6619 May, Other viral agents as the cause of diseases classified elsewhere B97.89 and Acute upper respiratory infection, unspecified J06.9 [facility] [place] [id number] [place] [address] 15985 -2695 Mar, Nausea R11.0 [facility] [place] [id number] [place] [address] 59325 -0709 Dec, Hives L50.9 [place] [address] [id number] [place] [address] 00972- 2449 14 Dec, 2015 [facility] [place] [address] [id number] [address] -5669 10 Dec, 2015 Cutaneous abscess of limb, unspecified L02.419 ; Cellulitis of unspecified part of limb L03.119 ; Encounter for incision and drainage procedure Z01.89 and Encounter for recheck of abscess following incision and drainage Z09 [facility] [place] [address] [address] -0837 09 Dec, 2015 Abscess of leg, right L02.415 [place] [id number] [place] [address] 44807- 6463 08 Dec, 2015 Cellulitis of unspecified part of limb L03.119 and Cutaneous abscess of limb, unspecified L02.419 [place] [address] [address]- 7278 Dec, [place] [id number] [place] [address] 08927- 2769 Dec, [facility] [place] [address] [address] -5005 Aug, [place] [id number] [place] [address] 99239- 0065 Aug, [facility] [place] [address] [address] -6052 Jul, Pain in unspecified wrist M25.539 and Back pain, thoracic M54.6 [facility] [place] [id number] [address] -0578 Jun, Strain of right wrist, initial encounter S66.911A [place] [address] [place] [address] 06060- 7316 Jun, Chronic pancreatitis, unspecified pancreatitis type K86.1 ; Hirsuties L68.0 ; Morbid (severe) obesity due to excess calories E66.01 ; Chronic pancreatitis K86.1 and Asthma J45.909 [facility] [id number] [place] [address] 47964- 3896 May, [facility] [address] 82512- 0842 May, Hyperlipidemia, mixed E78.2 and Muscle spasm of back M62.830 [facility] [address] 74232- 9690 Apr, [facility] [address] 57314- 8943 Apr, Torticollis M43.6 [facility] [address] 01781- 1366 Apr, Right-sided thoracic back pain M54.6 [facility] [address] 21773- 0820 Mar, Rash R21 [facility] [address] 20499- 5750 Mar, [facility] [id number] [place] [address] 29881- 5505 Jan, [facility] [id number] [place] [address] 43707- 4682 Dec, [facility] [id number] [place] [address] 25091- 6658 Dec, Urinary frequency 788.41 and Nocturia more than twice per night 788.43 [facility] [id number] [place] [address] 89284- 0581 Nov, [facility] [address] 95232- 6832 Nov, [facility] [id number] [place] [address] 94765- 8228 Nov, Abdominal pain 789.00 [facility] [address] 46784- 3854 October, TDAP DX V06.1 [facility] [address] [address]- 8883 October, [facility] [address] [address]- 8310 October, Disturbance of skin sensation 782.0 ; Wrist pain, right 719.43 ; Hyperlipidemia 272.4 and Skin lesion of face 709.9 [facility] [address] [address]- 0421 Sep, [facility] [id number] [place] [address] 99348- 1442 Sep, [facility] [id number] [place] [address] 29351- 2039 Aug, [facility] [id number] [place] [address] 48967- 7873 Aug, [facility] [address] [address]- 1539 Aug, [facility] [address] [address]- 0510 Aug, [facility] [address] [address]- 4460 Aug, [facility] [address] [address]- 9576 16 Aug, 2014 [facility] [address] [address]- 7478 Aug, [facility] [address] [address]- 7063 Aug, [facility] [address] 2570 Aug, [facility] [address] [address]- 6357 Aug, [facility] [place] [facility] [address] [id number] [place] [address]- 7739 Aug, [facility] [place] [facility] [address] [id number] [place] [address]- 4425 Aug, [facility] [place] [facility] [address] [id number] [place] 5650 Aug, [facility] [place] [facility] [address] [id number] [place] [address]- 3361 Aug, [facility] [place] [facility] [address] [id number] [place] [address]- 1968 Jul, [facility] [place] [facility] [address] [id number] [place] [address]- 7835 Jul, [facility] [place] [facility] [address] [id number] [place] [address]- 1725 Jul, [facility] [place] [facility] [address] [id number] [place] [address]- 8607 Jul, [facility] [place] [facility] [address] [id number] [place] [address]- 8709 Jul, [facility] [place] [facility] [address] [id number] [place] [address]- 2439 Jul, [facility] [place] [facility] [address] [id number] [place] [address]- 7598 Jun, [facility] [place] [facility] [address] [id number] [address]- 5777 Jun, [facility] [place] [facility] [address] [id number] [place] [address] Jun, [facility] [place] [facility] [address] [id number] [place] [address] Jun, [facility] [place] [facility] [address] [id number] [place] [address] Jun, [facility] [place] [facility] [address] [id number] [address] Jun, [facility] [place] [facility] [address] [id number] [place] [address] 15 Jun, 2014 [facility] [place] [facility] [address] [id number] [id number] [address] 15 Jun, 2014 [facility] [place] [facility] [address] [id number] [place] [address] May, [facility] [place] [facility] [address] [id number] [place] [address] May, [facility] [place] [facility] [address] [id number] [place] [address] May, [facility] [place] [facility] [address] [id number] [place] [address] May, [facility] [place] [facility] [address] [id number] [place] [address] May, [facility] [place] [facility] [address] [id number] [place] [address] May, [facility] [place] [facility] [address] [id number] [place] [address] May, [facility] [place] [facility] [address] [id number] [place] [address] May, [facility] [place] [facility] [address] [id number] [place] [address] May, [facility] [place] [facility] [address] [id number] [place] [address] May, [facility] [place] [facility] [address] [id number] [place] [address] May, [facility] [place] [facility] [address] [id number] [id number] [address] May, [facility] [place] [facility] [address] [id number] [place] [address] Apr, [facility] [place] [facility] [address] [id number] [place] [address] Apr, [facility] [place] [facility] [address] [id number] [place] [address] Apr, [facility] [place] [facility] [address] [id number] [place] [address] Apr, [facility] [place] [facility] [address] [id number] [place] [address] Apr, [facility] [place] [facility] [address] [id number] [place] [address] Apr, [facility] [place] [facility] [address] [id number] [place] [address] Apr, [facility] [place] [facility] [address] [id number] [place] [address] Apr, [facility] [place] [facility] [address] [id number] [place] [address] Apr, [facility] [place] [facility] [address] [id number] [place] [address] Apr, [facility] [place] [facility] [address] [id number] [place] [address] Apr, [facility] [place] [facility] [address] [id number] [place] [address] Apr, [facility] [place] [facility] [address] [id number] [place] [address] Mar, [facility] [place] [facility] [address] [id number] [place] [address] Mar, [facility] [place] [facility] [address] [address] [id number] [place] [address] Mar, [facility] [place] [facility] [address] [id number] [place] [address] Mar, [facility] [place] [facility] [address] [id number] [place] [address] Feb, [facility] [place] [facility] [address] [id number] [place] [address] 3414 Feb, 2013 [facility] [place] [facility] [address] [id number] [place] [address] 4[address] Feb, 2013 [facility] [place] [facility] [address] [id number] [place] [address] 7[address] Feb, 2013 [facility] [place] [facility] [address] [id number] [place] [address] Feb, 2013 [facility] [place] [facility] [address] [id number] [place] [address] 9884 Feb, 2013 [facility] [place] [facility] [address] [id number] [place] [address] 1633 Jan, [facility] [place] [facility] [address] [id number] [place] [address] 1487 Jan, [facility] [place] [facility] [address] [id number] [place] [address] 6072 Jan, [facility] [place] [facility] [address] [id number] [place] [address] 1847 Jan, [facility] [place] [facility] [address] [id number] [place] [address]- 7109 Jan, [facility] [place] [facility] [address] [id number] [place] [address]- 4432 Jan, [facility] [place] [facility] [address] [id number] [place] [address]- 7914 Jan, [facility] [place] [facility] [address] [id number] [place] [address]- 6108 Jan, [facility] [place] [facility] [address] [id number] [place] [address]- 5694 Jan, [facility] [place] [facility] [address] [id number] [place] [address]- 5743 Jan, [facility] [place] [facility] [address] [id number] [place] [address]- 1435 Jan, [facility] [place] [facility] [address] [id number] [place] [address]- 4[address] Jan, [facility] [place] [facility] [address] [id number] [place] [address] 3937 Jan, [facility] [place] [facility] [address] [id number] [place] [address]- 7040 Jan, [facility] [place] [facility] [address] [id number] [place] [address]- 1277 Dec, [facility] [place] [facility] [address] [id number] [place] [address]- 7967 Dec, [facility] [place] [facility] [address] [id number] [place] [address]- 8918 Dec, [facility] [place] [facility] [address] [id number] [place] [address]- 6909 Dec, [facility] [place] [facility] [address] [id number] [place] [address]- 9074 Nov, [facility] [place] [facility] [address] [id number] [place] [address]- 3098 Nov, [facility] [place] [facility] [address] [id number] [place] [address]- 5458 Nov, [facility] [place] [facility] [address] [id number] [place] [address]- 8977 Nov, [facility] [place] [facility] [address] [id number] [place] [address]- 0156 Nov, [facility] [place] [facility] [address] [id number] [place] [address]- 5905 October, [facility] [place] [facility] [address] [id number] [place] [address]- 1258 October, [facility] [place] [facility] [address] [id number] [place] [address]- 1778 October, [facility] [place] [facility] [address] [id number] [place] [address]- 1701 October, [facility] [place] [facility] [address] [id number] [place] [address]- 8246 October, [facility] [place] [facility] [address] [id number] [place] [address] 7831 October, [facility] [place] [facility] [address] [id number] [place] [address] 3256 October, [facility] [place] [facility] [address] [id number] [place] [address]- 5401 October, [facility] [place] [facility] [address] [id number] [place] [address]- 2477 October, [facility] [place] [facility] [address] [id number] [place] [address]- 5991 October, [facility] [place] [facility] [address] [id number] [place] [address]- 2787 October, [facility] [place] [facility] [address] [id number] [place] [address]- 4302 October, [facility] [place] [facility] [address] [id number] [place] [address]- 5333 October, [facility] [place] [facility] [address] [id number] [place] [address]- 0602 October, [facility] [place] [facility] [address] [id number] [place] [address]- 9271 Sep, [facility] [place] [facility] [address] [id number] [place] [address]- 4756 Sep, [facility] [place] [facility] [address] [id number] [place] [address]- 9931 Sep, [facility] [place] [facility] [address] [id number] [place] [address]- 6723 Sep, [facility] [place] [facility] [address] [id number] [place] [address]- 4370 Sep, [facility] [place] [facility] [address] [id number] [place] [address]- 5859 Sep, [facility] [place] [facility] [address] [id number] [place] [address]- 2939 Sep, [facility] [place] [facility] [address] [id number] [place] [address]- 9902 Sep, [facility] [place] [facility] [address] [id number] [place] [address]- 8246 Sep, [facility] [place] [facility] [address] [id number] [place] [address]- 8674 Sep, [facility] [place] [facility] [address] [id number] [place] [address]- 4426 Sep, [facility] [place] [facility] [address] [id number] [place] [address]- 1553 Sep, [facility] [place] [facility] [address] [id number] [place] [address]- 0836 Sep, [facility] [place] [facility] [address] [id number] [place] [address]- 4409 Sep, [facility] [place] [facility] [address] [id number] [place] [address]- 4006 Sep, [facility] [place] [facility] [address] [id number] [place] [address]- 4845 Aug, [facility] [place] [facility] [address] [id number] [place] [address]- 8224 Aug, [facility] [place] [facility] [address] [id number] [place] [address]- 9340 Aug, [facility] [place] [facility] [address] [id number] [place] [address]- 1324 Aug, [facility] [place] [facility] [address] [id number] [place] [address]- 1699 Jul, [facility] [place] [facility] [address] [id number] [place] [address]- 8655 06 Jul, 2013 [facility] [address] [id number] [place] [address]- 0247 Jul, [facility] [place] [facility] [address] [id number] [place] [address]- 3476 Jul, [facility] [address] [id number] [place] [address]- 4707 Jun, [facility] [place] [facility] [address] [id number] [place] [address]- 7184 Jun, [facility] [address] [id number] [place] [address]- 4437 Jun, [facility] [address] [id number] [place] [address]- 3243 Jun, [facility] [address] [id number] [place] [address]- 8588 Jun, [facility] [address] [id number] [place] [address]- 3775 Jun, [facility] [address] [id number] [place] [address]- 0022 Jun, [facility] [address] [id number] [place] [address]- 1826 Jun, [facility] [address] [id number] [place] [address]- 1809 May, [facility] [place] [facility] [address] [id number] [place] [address]- 3681 May, [facility] [place] [facility] [address] [id number] [place] [address]- 0436 May, [facility] [place] [facility] [address] [id number] [place] [address]- 9066 May, [facility] [place] [facility] [address] [id number] [place] [address]- 6541 May, [facility] [place] [facility] [address] [id number] [place] [id number] 17 May, 2013 [facility] [place] [facility] [address] [id number] [place] [address]- 2605 17 May, 2013 [facility] [place] [facility] [address] [id number] [place] [address] 17 May, 2013 [facility] [place] [facility] [address] [id number] [place] [address]- 8257 16 May, 2013 [facility] [place] [facility] [address] [id number] [id number] [address] 16 May, 2013 [facility] [place] [facility] [address] [id number] [place] [address]- 5101 14 May, 2013 [facility] [place] [facility] [address] [id number] [place] [address]- 2792 14 May, 2013 [facility] [place] [facility] [address] [id number] [place] [address]- 3991 13 May, 2013 [facility] [place] [facility] [address] [id number] [place] [address]- 2822 13 May, 2013 [facility] [place] [facility] [address] [id number] [place] [address]- 5259 12 May, 2013 [facility] [place] [facility] [address] [id number] [address]- 2605 12 May, 2013 [facility] [place] [facility] [address] [id number] [place] [address]- 4633 11 May, 2013 [facility] [place] [facility] [address] [id number] [place] [address]- 4143 11 May, 2013 [facility] [place] [facility] [address] [id number] [address]- 1531 26 Apr, 2013 [facility] [place] [facility] [address] [id number] [place] [address] Apr, [facility] [place] [facility] [address] [id number] [place] [address]- 2010 Apr, [facility] [address] [id number] [place] [address]- 9200 Apr, [facility] [address] [id number] [place] [address]- 3904 Aug, [facility] [address] [id number] [place] [address]- 2995 Aug, [facility] [address] [id number] [place] [address]- 7943 Aug, [facility] [address] [id number] [place] [address]- 0428 Aug, [facility] [address] [id number] [place] [address]- 1854 Jul, [facility] [address] [id number] [place] [address]- 8377 Jun, [facility] [address] [id number] [place] [address]- 5095 Jun, [facility] [address] [facility] [id number] [place] [address]- 2062 Jun, [facility] [address] [facility] [id number] [place] [address]- 0549 Jun, [facility] [address] [id number] [place] [address]- 3396 May, [facility] [address] [id number] [place] [address]- 4649 May, [facility] [address] [id number] [place] [address]- 5442 May, [facility] [address] [id number] [place] [address]- 9808 May, [facility] [address] [facility] [id number] [place] [address]- 9174 May, [facility] [place] [facility] [address] [id number] [place] [address]- 1839 May, [facility] [place] [facility] [address] [id number] [place] May, [facility] [place] [facility] [address] [id number] [place] [address]- 9062 Apr, [facility] [place] [facility] [address] [id number] [place] [address]- 3612 Apr, [facility] [place] [facility] [address] [id number] [place] [address]- 6617 Apr, [facility] [place] [facility] [address] [id number] [place] [address]- 5417 Apr, [facility] [place] [facility] [address] [id number] [place] [address]- 9775 Apr, [facility] [place] [facility] [address] [id number] [place] [address]- 3503 Apr, [facility] [place] [facility] [address] [id number] [place] [address]- 9241 Apr, [facility] [place] [facility] [address] [id number] [place] [address]- 7803 Mar, [facility] [place] [facility] [address] [id number] [place] [address]- 2143 Mar, [facility] [place] [facility] [address] [id number] [place] [address]- 4953 Mar, [facility] [place] [facility] [address] [id number] [place] [address]- 2138 Mar, [facility] [place] [facility] [address] [id number] [place] [address]- 5899 Mar, [facility] [place] [facility] [address] [id number] [place] [address]- 4065 Mar, [facility] [place] [facility] [address] [id number] [address]- 4788 Mar, [facility] [place] [facility] [address] [id number] [place] [address]- 4965 Mar, [facility] [place] [facility] [address] [id number] [place] [address]- 5956 Mar, [facility] [place] [facility] [address] [id number] [place] [address] 2546 Mar, [facility] [place] [facility] [address] [id number] [place] [address]- 4645 Mar, [facility] [place] [facility] [address] [id number] [place] [address]- 0177 Mar, [facility] [place] [facility] [address] [id number] [place] [address]- 2745 Feb, [facility] [place] [facility] [address] [id number] [place] [address]- 9374 Jan, [facility] [place] [facility] [address] [id number] [place] [address]- 7732 Jan, [facility] [place] [facility] [address] [id number] [place] [address]- 8933 Jan, [facility] [place] [facility] [address] [id number] [place] [address]- 6021 Jan, [facility] [place] [facility] [address] [id number] [place] [address]- 1490 Jan, [facility] [place] [facility] [address] [id number] [place] [address]- 8577 Dec, [facility] [place] [facility] [address] [id number] [place] [address] 2549 Dec, [facility] [place] [facility] [address] [facility] [id number] [place] [address]- 2216 Nov, [facility] [place] [facility] [address] [id number] [place] [address]- 2546 Nov, [facility] [place] [facility] [address] [id number] [place] [address]- 9913 Nov, [facility] [address] [id number] [place] [address]- 5356 October, [facility] [address] [id number] [place] [address]- 5980 October, [facility] [address] [id number] [place] [address]- 4359 October, [facility] [address] [id number] [place] [address]- 1930 October, [facility] [address] [id number] [place] [address]- 1265 October, [facility] [address] [id number] [place] [address]- 5402 October, [facility] [address] [id number] [place] [address]- 1294 October, [facility] [address] [id number] [place] [address]- 3667 Sep, [facility] [address] [id number] [place] [address]- 6379 Sep, [facility] [address] [id number] [place] [address]- 9044 Sep, [facility] [address] [id number] [place] [address]- 1978 Sep, [facility] [address] [id number] [place] [address]- 5552 24 Sep, 2011 [facility] [place] [facility] [address] [id number] [place] [address]- 4933 19 Sep, 2011 [facility] [place] [facility] [address] [id number] [place] [address]- 7948 17 Sep, 2011 [facility] [address] [id number] [place] [address]- 1408 16 Sep, 2011 [facility] [place] [facility] [address] [id number] [place] [address]- 6169 16 Sep, 2011 [facility] [place] [facility] [address] [id number] [place] [address]- 0336 14 Sep, 2011 [facility] [place] [facility] [address] [id number] [place] [address]- 0286 13 Sep, 2011 [facility] [place] [facility] [address] [id number] [place] [address]- 0930 10 Sep, 2011 [facility] [address] [id number] [place] [address]- 0923 09 Sep, 2011 [facility] [place] [facility] [address] [id number] [place] [address]- 2137 27 Aug, 2011 [facility] [place] [facility] [address] [id number] [place] [address]- 1394 12 Aug, 2011 [facility] [place] [facility] [address] [id number] [place] [address]- 9482 08 Aug, 2011 [facility] [place] [facility] [address] [id number] [place] [address]- 8549 06 Aug, 2011 [facility] [place] [facility] [address] [id number] [place] [address]- 8528 28 Jul, 2011 [facility] [place] [facility] [address] [id number] [place] [address]- 9128 22 Jul, 2011 [facility] [place] [facility] [address] [id number] [place] [address]- 8224 16 Jul, 2011 [facility] [place] [facility] [address] [id number] [place] [address]- 5167 15 Jul, 2011 [facility] [place] [facility] [address] [id number] [place] [address]- 7846 14 Jul, 2011 [facility] [place] [facility] [address] [id number] [place] [address]- 3210 10 Jul, 2011 [facility] [place] [facility] [address] [id number] [place] [address]- 2788 30 Jun, 2011 [facility] [address] [id number] [place] [address]- 5731 Jun, [facility] [address] [id number] [place] [address]- 5157 Jun, [facility] [address] [id number] [place] [address]- 0192 Jun, [facility] [address] [id number] [place] [address]- 7899 Jun, [facility] [address] [id number] [place] [address]- 2593 May, [facility] [address] [id number] [place] [address]- 9964 May, [facility] [address] [id number] [place] [address]- 3999 14 May, 2011 [facility] [place] [facility] [address] [id number] [place] [address]- 1986 14 May, 2011 [facility] [address] [id number] [place] [address]- 0271 May, [facility] [address] [id number] [place] [address]- 0265 May, [facility] [address] [id number] [place] [address] 05 May, 2011 [facility] [place] [facility] [address] [id number] [place] [address] 15 Apr, 2011 [facility] [place] [facility] [address] [id number] [place] [address] 15 Apr, 2011 [facility] [place] [facility] [address] [id number] [place] [address] Apr, [facility] [place] [facility] [address] [id number] [place] [address] 07 Apr, 2011 [facility] [place] [facility] [address] [id number] [place] [address] Apr, [facility] [place] [facility] [address] [id number] [place] [address] Apr, [facility] [place] [facility] [address] [id number] [place] [address] Mar, [facility] [place] [facility] [address] [id number] [place] [address] Mar, [facility] [place] [facility] [address] [id number] [place] [address] Mar, [facility] [place] [facility] [address] [id number] [place] [address] Mar, [facility] [place] [facility] [address] [id number] [place] [address] Jan, [facility] [place] [facility] [address] [id number] [place] [address] Dec, [facility] [place] [facility] [address] [id number] [place] [address] Dec, [facility] [place] [facility] [address] [id number] [place] [address] October, [facility] [place] [facility] [address] [id number] [place] [address] Sep, [facility] [place] [facility] [address] [id number] [place] [address] 14 Sep, 2010 [facility] [place] [facility] [address] [id number] [place] [address] Jul, [facility] [place] [facility] [address] [id number] [place] [address] 16 Jul, 2010 [facility] [place] [facility] [address] [id number] [place] [address] May, [facility] [place] [facility] [address] [id number] [address] May, [facility] [place] [facility] [address] [id number] [place] [address] 08 May, 2010 [facility] [place] [facility] [address] [id number] [place] [address] May, [facility] [place] [facility] [address] [id number] [place] [address]326 Apr, [facility] [place] [facility] [address] [id number] [place] [address] Apr, [facility] [place] [facility] [address] [id number] [place] [address]773 Apr, [facility] [place] [facility] [address] [id number] [place] [address] Apr, [facility] [place] [facility] [address] [id number] [place] [address] Apr, [facility] [place] [facility] [address] [id number] [place] [address] Mar, [facility] [place] [facility] [address] [id number] [place] [address] 14 Mar, 2010 [facility] [place] [facility] [address] [id number] [place] [address] Mar, [facility] [place] [facility] [address] [id number] [address] Mar, [facility] [place] [facility] [address] [id number] [address] Jan, [facility] [place] [facility] [address] [id number] [place] [address] 15 Dec, 2009 [facility] [place] [facility] [address] [id number] [address] 10 Sep, 2009 [facility] [place] [facility] [address] [id number] [place] [address] May, [facility] [place] [facility] [id number] [address] May, [facility] [id number] [address] May, [facility] [id number] [address] Apr, [facility] [id number] [place] [address] Apr, [facility] [id number] [place] [address]- [address] Apr, [facility] [id number] [place] [address]133- [address] Apr, [facility] [id number] [place] [address]- [address] Apr, [facility] [id number] [place] [address]- [address] Mar, [facility] [id number] [address] Mar, [facility] [id number] [address] Jul, IMMUNIZATIONS No Known Immunizations SOCIAL HISTORY Never Assessed REASON FOR VISIT Lab (walk-in) PLAN OF CARE Activity Details Pending Test UA W/CULTURE IF INDICATED (IN HOUSE) VITAL SIGNS MEDICATIONS Unknown Medications RESULTS No Results PROCEDURES Procedure Date Ordered Result Body Site URINALYSIS, AUTO, W/O SCOPE 2018 INSTRUCTIONS MEDICATIONS ADMINISTERED No Known Medications [...] the January before. 03/2018 Hospitalization History Cellulitis[facility] 12/20/15 Hospitalization History [facility]- Abd pain 03/07/2017 Hospitalization History [facility]- Abd pain 03/14/2017 [facility]- No bowel movement, rash 04/13/2017 Hospitalization [facility]- Abd pain r/t kidney surgery on 04/17/2017 Hospitalization History [facility]- Abd pain r/t kidney surgery on 04/18/2017 Hospitalization History [facility]- Lower abd pain 04/30/2017 Hospitalization History [facility]- Cannot urinate 05/30/2017 Hospitalization [facility]- Pancreatitis Sx 06/29/2017 Hospitalization History [facility]- Stomach pain 07/22/2017 Hospitalization History [facility]- Left side pain 08/12/2017 Hospitalization History [facility]- Incision site infection 08/30/2017 Hospitalization History [facility]- Post Op Seroma/Hematoma Left Abdomen. Discharged 09/04/17- Dr Daniel 09/02/2017 Hospitalization History [facility]- Right shoulder and back pain 2017 Hospitalization History [facility]- Shoulder/Back pain 11/11/2017 Hospitalization History [facility]- Right shoulder blade pain 12/04/2017 Hospitalization History [facility]- C-Diff 12/13/2017 Hospitalization History C diff et MRSA 12/27/2017
--- OUTSIDE RECORDS SUMMARY | 2018-04-29 10:27 | XMS REPORT ---
Author Author SAI CARMEN Organization [facility] [facility] Address [address] [place] [address] Care Team Providers Care Stacker Driver Name Role Phone SAICORTNEY KOENIGHANY Unavailable PROBLEMS Type Condition ICD9-CM Code DWP39-OM Code Onset Dates Condition Status SNOMED Code Problem Atelectasis J98.11 Active 76780749 Problem Restless leg syndrome G25.81 Active 72817724 Problem Trichotillomania F63.3 Active 98918632 Problem Primary osteoarthritis of right knee M17.11 Active [id number] Problem Intestinal malabsorption, unspecified K90.9 Active 30898457 Problem Chronic post-traumatic stress disorder (PTSD) F43.12 Active 532611431 Problem Generalized social phobia F40.11 Active 25176244 Problem Chronic fatigue R53.82 Active 62032341 Problem Moderate episode of recurrent major depressive disorder F33.1 Active 002814942 Problem Chronic tension-type headache, intractable G44.221 Active 054697699 Problem Morbid (severe) obesity due to excess calories E66.01 Active 857066755 Problem Nodule of left lung R91.1 Active 556057637 Problem History of renal cell carcinoma Z85.528 Active 016200727 Problem FH: polycystic ovary Z84.2 Active 195534004 Problem Chronic pancreatitis K86.1 Active 838208441 Problem Hyperlipidemia, mixed E78.2 Active 664934866 Problem Asthma J45.909 Active 189548298 Problem Hirsuties L68.0 Active 149576976 Problem Polydipsia R63.1 Active 83267876 ALLERGIES No Information ENCOUNTERS Encounter Location Date Diagnosis [facility] [address] [facility] [id number], [place] [address] Mar, Rectal bleeding K62.5 [facility] [address] [facility] [id number], [place] [address] Mar, Rectal bleeding K62.5 [facility] [place] [facility] [id number] [place] [address] 33314- 7795 Mar, Urinary urgency R39.15 [facility] [facility] [id number] [place] [address] 92107- 1478 Mar, Urinary urgency R39.15 [facility] [place] [facility] [id number] [place] [address] 85487- 4928 Mar, Primary osteoarthritis of right knee M17.11 and BMI 45.0- 49.9, adult Z68.42 [facility] [place] [facility] [id number] [place] [address] 94682- 7264 Mar, [place] [id number] [place] [address] 26525- 8157 Feb, Left upper arm pain M79.622 [place] [id number] [place] [address] 19812- 6833 Feb, [facility] [place] [facility] [id number] [place] [address] 57289- 6029 Jan, Acute pain of right knee M25.561 ; Right upper quadrant abdominal pain R10.11 and BMI 45.0-49.9, adult Z68.42 [facility] [place] [facility] [id number] [place] [address] 07791- 0004 Jan, [facility] [place] [facility] [id number] [place] [address] 77852- 6454 Jan, [facility] [place] [facility] [id number] [place] [address] 29123- 5688 Dec, [facility] [place] [facility] [id number] [place] [address] 40749- 0098 Dec, Intestinal malabsorption, unspecified K90.9 and Diarrhea, unspecified R19.7 [facility] [place] [facility] [id number] [place] [address] 92128- 9941 Dec, [facility] [place] [facility] [id number] [place] [address] 42326- 7974 Dec, Strep throat J02.0 ; Intestinal malabsorption, unspecified K90.9 ; Diarrhea, unspecified R19.7 ; Postoperative seroma involving digestive system after non-digestive system procedure K91.873 ; Hyperlipidemia, mixed E78.2 and BMI 45.0-49.9, adult Z68.42 [facility] [facility] [address], [place] [address] Dec, [facility] [place] [facility] [address], [place] [address] 3171 Dec, Nausea R11.0 [facility] [place] [facility] [id number] [place] [address] 13511- 2394 Dec, [facility] [address], [place] [address] Dec, Sore throat J02.9 ; Strep throat J02.0 and BMI 45.0-49.9, adult Z68.42 [facility] [place] [facility] [address], [place] [address] 8966 Dec, [facility] [place] [facility] [address], [place] [address] 3350 Dec, [facility] [place] [facility] [address], [place] [address] 9356 Dec, [facility] [place] [facility] [address], [place] [address] 1579 Dec, [facility] [place] [facility] [address], [place] [address] 4021 Dec, [facility] [place] [facility] [address], [place] [address]- 3872 Dec, [facility] [place] [facility] [address], [place] [address]- 5244 Dec, [facility] [place] [facility] [address], [place] [address] 4756 Dec, [facility] [place] [facility] [address], [place] [address] 7094 Dec, Clostridium difficile colitis A04.72 ; Intractable vomiting with nausea, unspecified vomiting type R11.2 and BMI 45.0-49.9, adult Z68.42 [facility] [place] [facility] [id number] [place] [address] 74630- 6901 Dec, [facility] [place] [facility] [id number] [place] [address] 56468- 3002 Nov, [facility] [place] [facility] [id number] [place] [address] 04102- 9385 Nov, [facility] [place] [facility] [id number] [place] [address] 05273- 1762 Nov, [facility] [place] [facility] [id number] [place] [address] 41759- 0442 Nov, [facility] [id number] [place] [address] 43287 -6177 Nov, [facility] [place] [facility] [id number] [place] [address] 47917- 3766 Nov, Hyperlipidemia, mixed E78.2 [facility] [id number] [place] [address] 25342 -1638 Nov, Acute suppurative otitis media of right ear without spontaneous rupture of tympanic membrane, recurrence not specified H66.001 and BMI 45.0-49.9, adult Z68.42 [facility] [place] [facility] [address] [place] [address] 25793- 2549 Nov, Hyperlipidemia, mixed E78.2 [facility] [place] [facility] [id number] [place] [address] 25352- 8067 Nov, [facility] [place] [facility] [id number] [place] [address] 55698- 3890 Nov, [facility] [place] [facility] [id number] [place] [address] 38429- 2978 Nov, Nodule of left lung R91.1 [place] [id number] [place] [address] 45021- 5476 Nov, Medicare annual wellness visit, initial Z00.00 [...] adult Z68.42 and Encounter for immunization Z23 [place] [id number] [place] [address] 73309- 1701 October, [place] [id number] [place] [address] 45941- 7014 October, Nodule of left lung R91.1 [place] [id number] [place] [address] 91245- 2340 October, Nodule of left lung R91.1 [place] [id number] [place] [address] 06686- 6185 October, Recurrent major depressive disorder, in partial remission F33.41 ; Restless leg syndrome G25.81 ; Generalized social phobia F40.11 ; Chronic post-traumatic stress disorder (PTSD) F43.12 ; BMI 45.0-49.9, adult Z68.42 and Trichotillomania F63.3 [place] [id number] [place] [address] 50802- 9382 October, [place] [id number] [place] [address] 83457- 2464 Sep, Chronic fatigue R53.82 and BMI 45.0-49.9, adult Z68.42 [place] [id number] [place] [address] 85024- 6694 Aug, [place] [id number] [place] [address] 70400- 0592 Jul, Restless leg syndrome G25.81 and B12 deficiency E53.8 [facility] [facility] [id number] [place] [address] 77302- 6501 Jul, [place] [id number] [place] [address] 17996- 9866 Jul, [place] [id number] [place] [address] 36617- 4285 Jun, [place] [address] 10924- 3379 Jun, Fatigue, unspecified type R53.83 ; History of renal cell carcinoma Z85.528 ; Chronic pancreatitis K86.1 ; Restless leg syndrome G25.81 ; Dark urine R82.99 and BMI 45.0-49.9, adult Z68.42 [place] [id number] [place] [address] 20823- 1430 Jun, [place] [id number] [place] [address] 73686- 3523 Jun, [place] [id number] [place] [address] 88239- 3522 Jun, [place] [id number] [place] [address] 17232- 1326 Jun, [place] [id number] [place] [address] 94748- 4129 May, Chronic post-traumatic stress disorder (PTSD) F43.12 ; Moderate episode of recurrent major depressive disorder F33.1 ; Trichotillomania F63.3 and Generalized social phobia F40.11 [place] [address] [place] [address] 86521- 9432 May, [place] [id number] [place] [address] 84358- 0466 14 May, 2017 Chronic post-traumatic stress disorder (PTSD) F43.12 ; Moderate episode of recurrent major depressive disorder F33.1 ; Trichotillomania F63.3 and Generalized social phobia F40.11 [place] [address], [place] [address]- 8040 07 May, 2017 Hyperlipidemia, mixed E78.2 ; Morbid (severe) obesity due to excess calories E66.01 ; Chronic post-traumatic stress disorder (PTSD) F43.12 ; Moderate episode of recurrent major depressive disorder F33.1 ; Trichotillomania F63.3 and Generalized social phobia F40.11 [place] [id number] [place] [address] 51510- 5212 30 Apr, 2017 [place] [id number] [place] [address] 74039- 2204 29 Apr, 2017 Hyperlipidemia, mixed E78.2 ; Morbid (severe) obesity due to excess calories E66.01 ; Chronic post-traumatic stress disorder (PTSD) F43.12 ; Moderate episode of recurrent major depressive disorder F33.1 ; Trichotillomania F63.3 and Generalized social phobia F40.11 [place] [id number] [place] [address] 00862- 4523 Apr, Trichotillomania F63.3 ; Generalized social phobia F40.11 ; Chronic post-traumatic stress disorder (PTSD) F43.12 and Moderate episode of recurrent major depressive disorder F33.1 [place] [id number] [place] [address] 35322- 1201 Apr, [place] [address] [place] [address] 82966- 5529 Apr, [place] [id number] [place] [address] 34050- 9899 Mar, Moderate episode of recurrent major depressive disorder F33.1 ; Trichotillomania F63.3 ; Chronic post-traumatic stress disorder (PTSD) F43.12 ; Generalized social phobia F40.11 and Restless leg syndrome G25.81 [facility] [id number] [place] [address] 90464- 8793 Mar, [facility] [id number] [place] [address] 34568- 4243 Mar, [facility] [id number] [place] [address] 26876- 6206 Feb, Left kidney mass N28.89 [facility] [id number] [place] [address] 92309- 6740 Jan, [facility] [id number] [place] [address] 16770- 7241 Dec, Polydipsia R63.1 ; Chronic pancreatitis K86.1 and Fatigue, unspecified type R53.83 [place] [id number] [place] [address] 26247- 4038 Nov, [place] [id number] [place] [address] 59321- 0566 Nov, [facility] [id number] [place] [address] 60896- 7340 Nov, Headache around the eyes R51 [place] [id number] [place] [address] 56414- 2266 Nov, [place] [id number] [place] [address] 66163- 3848 October, STD exposure Z20.2 [facility] [id number] [place] [address] 88042- 7766 October, STD exposure Z20.2 [place] [id number] [place] [address] 51001- 8913 October, Chronic post-traumatic stress disorder (PTSD) F43.12 ; Generalized social phobia F40.11 ; Trichotillomania F63.3 and Restless leg syndrome G25.81 [place] [id number] [place] [address] 50483- 9988 October, [facility] [id number] [place] [address] 08899- 7725 Sep, [facility] [facility] [id number] [place] [address] 03922- 4316 Aug, [place] [id number] [place] [address] 81381- 8204 Aug, [place] [id number] [place] [address] 25336- 8811 Aug, Neck mass R22.1 [place] [address] 05394- 6851 Aug, Atelectasis J98.11 [place] [id number] [place] [address] 27406- 7467 28 Jul, 2016 Hyperlipidemia, mixed E78.2 ; Atypical pneumonia J18.9 and Neck mass R22.1 [place] [address] [place] [address] 45743- 9635 15 Jul, 2016 Hemoptysis R04.2 [place] [id number] [place] [address] 67774- 0726 08 Jul, 2016 Acute non-recurrent pansinusitis J01.40 ; Hemoptysis R04.2 ; Polydipsia R63.1 and Malaise R53.81 [facility] [address] [place] [id number] [place] [address] 88076 -3950 May, Other viral agents as the cause of diseases classified elsewhere B97.89 and Acute upper respiratory infection, unspecified J06.9 [facility] [place] [id number] [place] [address] 52944 -0946 Mar, Nausea R11.0 [facility] [place] [id number] [place] [address] 55424 -0050 Dec, Hives L50.9 [place] [id number] [place] [address] 14884- 7867 14 Dec, 2015 [facility] [place] [address] [place] [id number] [address] -8581 10 Dec, 2015 Cutaneous abscess of limb, unspecified L02.419 ; Cellulitis of unspecified part of limb L03.119 ; Encounter for incision and drainage procedure Z01.89 and Encounter for recheck of abscess following incision and drainage Z09 [facility] [place] [address], [place] [address] -[address]1 09 Dec, 2015 Abscess of leg, right L02.415 [place] [address] [place] [address] 47825- 2865 08 Dec, 2015 Cellulitis of unspecified part of limb L03.119 and Cutaneous abscess of limb, unspecified L02.419 [place] [address], [place] [address]- 9970 Dec, [place] [address] [place] [address] 18047- 6874 Dec, [facility] [place] [address], [place] [address] -0983 Aug, [place] [address] [place] [address] 82215- 2717 Aug, [facility] [place] [address], [place] [address] -7250 Jul, Pain in unspecified wrist M25.539 and Back pain, thoracic M54.6 [facility] [place] [id number], [place] [address] -7841 Jun, Strain of right wrist, initial encounter S66.911A [place] [address] [place] [address] 95830- 9499 Jun, Chronic pancreatitis, unspecified pancreatitis type K86.1 ; Hirsuties L68.0 ; Morbid (severe) obesity due to excess calories E66.01 ; Chronic pancreatitis K86.1 and Asthma J45.909 [facility] [facility] [id number] [place] [address] 80846- 2593 May, [facility] [facility] [address] 08658- 4495 May, Hyperlipidemia, mixed E78.2 and Muscle spasm of back M62.830 [facility] [facility] [address] 23673- 4221 Apr, [facility] [facility] [address] 54065- 7775 Apr, Torticollis M43.6 [facility] [facility] [address] 40045- 7593 Apr, Right-sided thoracic back pain M54.6 [facility] [facility] [address] 68499- 6052 Mar, Rash R21 [facility] [facility] [address] 03991- 8129 Mar, [facility] [facility] [id number] [place] [address] 04146- 5197 Jan, [facility] [facility] [id number] [place] [address] 05886- 3400 Dec, [facility] [facility] [id number] [place] [address] 77877- 2164 Dec, Urinary frequency 788.41 and Nocturia more than twice per night 788.43 [facility] [facility] [id number] [place] [address] 86285- 8167 Nov, [facility] [facility] [address] 06515- 8973 Nov, [facility] [facility] [id number] [place] [address] 53107- 0890 Nov, Abdominal pain 789.00 [facility] [facility] [address] 99883- 8340 October, TDAP DX V06.1 [facility] [facility] [address], [place] [address]- 6226 October, [facility] [facility] [address] [address]- 9310 October, Disturbance of skin sensation 782.0 ; Wrist pain, right 719.43 ; Hyperlipidemia 272.4 and Skin lesion of face 709.9 [facility] [facility] [address] [address]- 9285 Sep, [facility] [facility] [id number] [place] [address] 78591- 4474 Sep, [facility] [place] [facility] [id number] [place] [address] 46896- 3193 Aug, [facility] [facility] [id number] [place] [address] 30295- 4123 Aug, [facility] [facility] [address], [place] [address]- 5355 Aug, [facility] [facility] [address], [place] [address]- 7371 Aug, [facility] [facility] [address], [place] [address]- 0478 Aug, [facility] [facility] [address], [place] [address]- 0526 16 Aug, 2014 [facility] [place] [facility] [address], [place] [address]- 4276 Aug, [facility] [place] [facility] [address], [place] [address]- 8255 Aug, [facility] [facility] [address] 2543 Aug, [facility] [facility] [address], [place] [address]- 4442 Aug, [facility] [place] [facility] [address] [id number] [place] [address]- 4340 Aug, [facility] [place] [facility] [address] [id number] [place] [address]- 5734 Aug, [facility] [place] [facility] [address] [id number] [place] 2242 Aug, [facility] [place] [facility] [address] [id number] [place] [address]- 7205 Aug, [facility] [place] [facility] [address] [id number] [place] [address]- 5133 Jul, [facility] [place] [facility] [address] [id number] [place] [address]- 2436 Jul, [facility] [place] [facility] [address] [id number] [place] [address]- 5066 Jul, [facility] [place] [facility] [address] [id number] [place] [address]- 7600 Jul, [facility] [place] [facility] [address] [id number] [place] [address]- 0247 Jul, [facility] [place] [facility] [address] [id number] [place] [address]- 6545 Jul, [facility] [place] [facility] [address] [id number] [place] [address]- 7015 Jun, [facility] [place] [facility] [address] [id number], [place] [address]- 0775 Jun, [facility] [place] [facility] [address] [id number] [place] [address]- 2104 Jun, [facility] [place] [facility] [address] [id number] [place] [address] Jun, [facility] [place] [facility] [address] [id number] [place] [address] Jun, [facility] [place] [facility] [address] [id number], [place] [address] Jun, [facility] [place] [facility] [address] [id number] [place] [address] 15 Jun, 2014 [facility] [place] [facility] [address] [id number] [place] [address] 15 Jun, 2014 [facility] [place] [facility] [address] [id number] [place] [address] May, [facility] [place] [facility] [address] [id number] [place] [address] May, [facility] [place] [facility] [address] [id number] [place] [address] May, [facility] [place] [facility] [address] [id number] [place] [address] May, [facility] [place] [facility] [address] [id number] [place] [address] May, [facility] [place] [facility] [address] [id number] [place] [address] May, [facility] [place] [facility] [address] [id number] [place] [address] May, [facility] [place] [facility] [address] [id number] [place] [address] May, [facility] [place] [facility] [address] [id number] [place] [address] May, [facility] [place] [facility] [address] [id number] [place] [address] May, [facility] [place] [facility] [address] [id number] [place] [address] May, [facility] [place] [facility] [address] [id number] [place] [address] May, [facility] [place] [facility] [address] [id number] [place] [address] Apr, [facility] [place] [facility] [address] [id number] [place] [address] Apr, [facility] [place] [facility] [address] [id number] [place] [address] Apr, [facility] [place] [facility] [address] [id number] [place] [address] Apr, [facility] [place] [facility] [address] [id number] [place] [address] Apr, [facility] [place] [facility] [address] [id number] [place] [address] 140[address] Apr, [facility] [place] [facility] [address] [id number] [place] [address] Apr, [facility] [place] [facility] [address] [id number] [place] [address] Apr, [facility] [place] [facility] [address] [id number] [place] [address] Apr, [facility] [place] [facility] [address] [id number] [place] [address] Apr, [facility] [place] [facility] [address] [id number] [place] [address] Apr, [facility] [place] [facility] [address] [id number] [place] [address] Apr, [facility] [place] [facility] [address] [id number] [place] [address] Mar, [facility] [place] [facility] [address] [id number] [place] [address] Mar, [facility] [place] [facility] [address] [id number] [place] [address] Mar, [facility] [place] [facility] [address] [id number] [place] [address] Mar, [facility] [place] [facility] [address] [id number] [place] [address] Feb, [facility] [place] [facility] [address] [id number] [place] [address] Feb, 2013 [facility] [place] [facility] [address] [id number] [place] [address] Feb, 2013 [facility] [place] [facility] [address] [id number] [place] [address] Feb, 2013 [facility] [place] [facility] [address] [id number] [place] [address] Feb, 2013 [facility] [place] [facility] [address] [id number] [place] [address] Feb, 2013 [facility] [place] [facility] [address] [id number] [place] [address] Jan, [facility] [place] [facility] [address] [id number] [place] [address] Jan, [facility] [place] [facility] [address] [id number] [place] [address] Jan, [facility] [place] [facility] [address] [id number] [place] [address] Jan, [facility] [place] [facility] [address] [id number] [place] [address] Jan, [facility] [place] [facility] [address] [id number] [place] [address] Jan, [facility] [place] [facility] [address] [id number] [place] [address] 7900 Jan, [facility] [place] [facility] [address] [id number] [place] [address]246 Jan, [facility] [place] [facility] [address] [id number] [place] [address] 8967 Jan, [facility] [place] [facility] [address] [id number] [place] [address] 7[address] Jan, [facility] [place] [facility] [address] [id number] [place] [address] 6687 Jan, [facility] [place] [facility] [address] [id number] [place] [address] 1241 Jan, [facility] [place] [facility] [address] [id number] [place] [address] 2949 Jan, [facility] [place] [facility] [address] [id number] [place] [address]- 5095 Jan, [facility] [place] [facility] [address] [id number] [place] [address]- 7678 Dec, [facility] [place] [facility] [address] [id number] [place] [address]- 6895 Dec, [facility] [place] [facility] [address] [id number] [place] [address]- 5992 Dec, [facility] [place] [facility] [address] [id number] [place] [address] 8036 Dec, [facility] [place] [facility] [address] [id number] [place] [address]- 9293 Nov, [facility] [place] [facility] [address] [id number] [place] [address]- 4100 Nov, [facility] [place] [facility] [address] [id number] [place] [address]- 8977 Nov, [facility] [place] [facility] [address] [id number] [place] [address]- 7305 Nov, [facility] [place] [facility] [address] [id number] [place] [address]- 6996 Nov, [facility] [place] [facility] [address] [id number] [place] [address]- 6261 October, [facility] [place] [facility] [address] [id number] [place] [address] 2355 October, [facility] [place] [facility] [address] [id number] [place] [address]- 6894 October, [facility] [place] [facility] [address] [id number] [place] [address]- 6750 October, [facility] [place] [facility] [address] [id number] [place] [address]- 6661 October, [facility] [place] [facility] [address] [id number] [place] [address]- 6782 October, [facility] [place] [facility] [address] [id number] [place] [address] 3723 October, [facility] [place] [facility] [address] [id number] [place] [address]- 4285 October, [facility] [place] [facility] [address] [id number] [place] [address]- 0947 October, [facility] [place] [facility] [address] [id number] [place] [address] 3916 October, [facility] [place] [facility] [address] [id number] [place] [address]- 7431 October, [facility] [place] [facility] [address] [id number] [place] [address] 0602 October, [facility] [place] [facility] [address] [id number] [place] [address]- 5471 October, [facility] [place] [facility] [address] [id number] [place] [address]- 7606 October, [facility] [place] [facility] [address] [id number] [place] [address]- 1092 Sep, [facility] [place] [facility] [address] [id number] [place] [address]- 4934 Sep, [facility] [place] [facility] [address] [id number] [place] [address]- 2326 Sep, [facility] [place] [facility] [address] [id number] [place] [address]- 3184 Sep, [facility] [place] [facility] [address] [id number] [place] [address]- 8950 Sep, [facility] [place] [facility] [address] [id number] [place] [address]- 3235 Sep, [facility] [place] [facility] [address] [id number] [place] [address]- 6689 Sep, [facility] [place] [facility] [address] [id number] [place] [address]- 3378 Sep, [facility] [place] [facility] [address] [id number] [place] [address]- 3559 Sep, [facility] [place] [facility] [address] [id number] [place] [address]- 2718 Sep, [facility] [place] [facility] [address] [id number] [place] [address]- 3681 Sep, [facility] [place] [facility] [address] [id number] [place] [address]- 6913 Sep, [facility] [place] [facility] [address] [id number] [place] [address]- 6591 Sep, [facility] [place] [facility] [address] [id number] [place] [address]- 7516 Sep, [facility] [place] [facility] [address] [id number] [place] [address]- 5645 Sep, [facility] [place] [facility] [address] [id number] [place] [address]- 6261 Aug, [facility] [place] [facility] [address] [id number] [place] [address]- 6607 Aug, [facility] [place] [facility] [address] [id number] [place] [address]- 0673 Aug, [facility] [place] [facility] [address] [id number] [place] [address]- 0820 Aug, [facility] [place] [facility] [address] [id number] [place] [address]- 3528 Jul, [facility] [place] [facility] [address] [id number] [place] [address]- 9001 06 Jul, 2013 [facility] [address] [id number] [place] [address]- 2327 Jul, [facility] [place] [facility] [address] [id number] [place] [address]- 1656 Jul, [facility] [address] [id number] [place] [address]- 1320 Jun, [facility] [place] [facility] [address] [id number] [place] [address]- 6709 Jun, [facility] [address] [id number] [place] [address]- 2764 Jun, [facility] [address] [id number] [place] [address] 1921 Jun, [facility] [address] [id number] [place] [address]- 4309 Jun, [facility] [address] [id number] [place] [address]- 1166 Jun, [facility] [address] [id number] [place] [address]- 1719 Jun, [facility] [address] [id number] [place] [address]- 6354 Jun, [facility] [address] [id number] [place] [address]- 8151 May, [facility] [place] [facility] [address] [id number] [place] [address]- 0864 May, [facility] [place] [facility] [address] [id number] [place] [address]- 2316 May, [facility] [place] [facility] [address] [id number] [place] [address]- 6116 May, [facility] [place] [facility] [address] [id number] [place] [address]- 3966 May, [facility] [place] [facility] [address] [id number] [place] [id number] 17 May, 2013 [facility] [place] [facility] [address] [id number] [place] [address]- 9798 17 May, 2013 [facility] [place] [facility] [address] [id number] [place] [address] 17 May, 2013 [facility] [place] [facility] [address] [id number] [place] [address]- 9505 16 May, 2013 [facility] [place] [facility] [address] [id number] [place]99 16 May, 2013 [facility] [place] [facility] [address] [id number] [place] [address]- 7504 14 May, 2013 [facility] [place] [facility] [address] [id number] [place] [address]- 6785 14 May, 2013 [facility] [place] [facility] [address] [id number] [place] [address]- 6812 13 May, 2013 [facility] [place] [facility] [address] [id number] [place] [address]- 8357 13 May, 2013 [facility] [place] [facility] [address] [id number] [place] [address]- 3746 12 May, 2013 [facility] [place] [facility] [address] [id number], [place] [address]- 9675 12 May, 2013 [facility] [place] [facility] [address] [id number], [place] [address]- 1537 11 May, 2013 [facility] [place] [facility] [address] [id number] [place] [address]- 5583 11 May, 2013 [facility] [place] [facility] [address] [id number], [place] [address]- 6516 26 Apr, 2013 [facility] [place] [facility] [address] [id number] [address] Apr, [facility] [place] [facility] [address] [id number], [place] [address]- 7656 Apr, [facility] [address] [id number] [place] [address]- 2775 Apr, [facility] [address] [id number] [place] [address]- 8791 Aug, [facility] [address] [id number] [place] [address]- 9772 Aug, [facility] [address] [id number] [place] [address]- 9601 Aug, [facility] [address] [id number] [place] [address]- 4830 Aug, [facility] [address] [id number] [place] [address]- 7967 Jul, [facility] [address] [id number] [place] [address]- 4119 Jun, [facility] [address] [id number] [place] [address]- 9303 Jun, [facility] [address] [facility] [id number] [place] [address]- 9788 Jun, [facility] [address] [facility] [id number] [place] [address]- 5109 Jun, [facility] [address] [id number] [place] [address]- 3970 May, [facility] [address] [id number] [place] [address]- 8257 May, [facility] [address] [id number] [place] [address]- 8478 May, [facility] [address] [id number] [place] [address]- 8766 May, [facility] [address] [facility] [id number] [place] [address]- 4009 May, [facility] [place] [facility] [address] [id number] [place] [address]- 8882 May, [facility] [place] [facility] [address] [id number] [place] May, [facility] [place] [facility] [address] [id number] [place] [address]- 0880 Apr, [facility] [place] [facility] [address] [id number] [place] [address]- 6015 Apr, [facility] [place] [facility] [address] [id number] [place] [address]- 6174 Apr, [facility] [place] [facility] [address] [id number] [place] [address]- 4982 Apr, [facility] [place] [facility] [address] [id number] [place] [address]- 0443 Apr, [facility] [place] [facility] [address] [id number] [place] [address]- 6338 Apr, [facility] [place] [facility] [address] [id number] [place] [address]- 4618 Apr, [facility] [place] [facility] [address] [id number] [place] [address]- 0077 Mar, [facility] [place] [facility] [address] [id number] [place] [address]- 0855 Mar, [facility] [place] [facility] [address] [id number] [place] [address]- 9488 Mar, [facility] [place] [facility] [address] [id number] [place] [address]- 0125 Mar, [facility] [place] [facility] [address] [id number] [place] [address]- 8175 Mar, [facility] [place] [facility] [address] [id number] [place] [address]- 2514 Mar, [facility] [place] [facility] [address] [id number], [place] [address]- 0395 Mar, [facility] [place] [facility] [address] [id number] [place] [address]- 2893 Mar, [facility] [place] [facility] [address] [id number] [place] [address]- 3196 Mar, [facility] [place] [facility] [address] [id number] [place] [address] 2546 Mar, [facility] [place] [facility] [address] [id number] [place] [address]- 2874 Mar, [facility] [place] [facility] [address] [id number] [place] [address]- 0336 Mar, [facility] [place] [facility] [address] [id number] [place] [address]- 7568 Feb, [facility] [place] [facility] [address] [id number] [place] [address]- 9634 Jan, [facility] [place] [facility] [address] [id number], [place] [address]- 1659 Jan, [facility] [place] [facility] [address] [id number] [place] [address]- 8964 Jan, [facility] [place] [facility] [address] [id number], [place] [address]- 9315 Jan, [facility] [place] [facility] [address] [id number], [place] [address]- 8952 Jan, [facility] [place] [facility] [address] [id number], [place] [address]- 5229 Dec, [facility] [place] [facility] [address] [id number] [place] [address] 2548 Dec, [facility] [place] [facility] [address] [facility] [id number], [place] [address]- 9246 Nov, [facility] [place] [facility] [address] [id number], [place] [address]- 2546 Nov, [facility] [place] [facility] [address] [id number] [place] [address]- 4134 Nov, [facility] [address] [id number] [place] [address]- 4865 October, [facility] [address] [id number] [place] [address]- 6886 October, [facility] [address] [id number] [place] [address]- 3513 October, [facility] [address] [id number] [place] [address]- 9617 October, [facility] [address] [id number] [place] [address]- 0014 October, [facility] [address] [id number] [place] [address]- 6356 October, [facility] [address] [id number] [place] [address]- 5218 October, [facility] [address] [id number] [place] [address]- 3952 Sep, [facility] [address] [id number] [place] [address]- 6563 Sep, [facility] [address] [id number] [place] [address]- 3534 Sep, [facility] [address] [id number] [place] [address]- 2915 Sep, [facility] [address] [id number] [place] [address]- 4766 24 Sep, 2011 [facility] [place] [facility] [address] [id number] [place] [address]- 5039 19 Sep, 2011 [facility] [place] [facility] [address] [id number] [place] [address]- 6696 17 Sep, 2011 [facility] [address] [id number] [place] [address]- 0515 16 Sep, 2011 [facility] [place] [facility] [address] [id number] [place] [address]- 6329 16 Sep, 2011 [facility] [place] [facility] [address] [id number] [place] [address]- 3066 14 Sep, 2011 [facility] [place] [facility] [address] [id number] [place] [address]- 3056 13 Sep, 2011 [facility] [place] [facility] [address] [id number] [place] [address]- 1407 10 Sep, 2011 [facility] [address] [id number] [place] [address]- 5670 09 Sep, 2011 [facility] [place] [facility] [address] [id number] [place] [address]- 3139 27 Aug, 2011 [facility] [place] [facility] [address] [id number] [place] [address]- 5244 12 Aug, 2011 [facility] [place] [facility] [address] [id number] [place] [address]- 9796 08 Aug, 2011 [facility] [place] [facility] [address] [id number] [place] [address]- 6220 06 Aug, 2011 [facility] [place] [facility] [address] [id number] [place] [address]- 4408 28 Jul, 2011 [facility] [place] [facility] [address] [id number] [place] [address]- 2887 22 Jul, 2011 [facility] [place] [facility] [address] [id number] [place] [address]- 2179 16 Jul, 2011 [facility] [place] [facility] [address] [id number] [place] [address]- 0026 15 Jul, 2011 [facility] [place] [facility] [address] [id number] [place] [address]- 7716 14 Jul, 2011 [facility] [place] [facility] [address] [id number] [place] [address]- 1125 10 Jul, 2011 [facility] [place] [facility] [address] [id number] [place] [address]- 6093 30 Jun, 2011 [facility] [address] [id number] [place] [address]- 9135 Jun, [facility] [address] [id number] [place] [address]- 6725 Jun, [facility] [address] [id number] [place] [address]- 2319 Jun, [facility] [address] [id number] [place] [address]- 0957 Jun, [facility] [address] [id number] [place] [address]- 2197 May, [facility] [address] [id number] [place] [address]- 2439 May, [facility] [address] [id number] [place] [address]- 8976 14 May, 2011 [facility] [place] [facility] [address] [id number] [place] [address]- 7890 14 May, 2011 [facility] [address] [id number] [place] [address]- 4571 May, [facility] [address] [id number] [place] [address]- 4992 May, [facility] [address] [id number] [place] [address]- 7348 05 May, 2011 [facility] [place] [facility] [address] [id number] [place] [address]- 5282 15 Apr, 2011 [facility] [place] [facility] [address] [id number] [place] [address]- 0088 15 Apr, 2011 [facility] [place] [facility] [address] [id number] [place] [address]- 9299 Apr, [facility] [place] [facility] [address] [id number] [place] [address]- 4528 07 Apr, 2011 [facility] [place] [facility] [address] [id number] [place] [address]- 2154 Apr, [facility] [place] [facility] [address] [id number] [place] [address]- 3782 Apr, [facility] [place] [facility] [address] [id number] [place] [address]- 4570 Mar, [facility] [place] [facility] [address] [id number] [place] [address]- 3748 Mar, [facility] [place] [facility] [address] [id number] [place] [address]- 9291 Mar, [facility] [place] [facility] [address] [id number] [place] [address]- 7467 Mar, [facility] [place] [facility] [address] [id number] [place] [address]- 0489 Jan, [facility] [place] [facility] [address] [id number] [place] [address] Dec, [facility] [place] [facility] [address] [id number] [place] [address] Dec, [facility] [place] [facility] [address] [id number] [place] [address] October, [facility] [place] [facility] [address] [id number] [place] [address] Sep, [facility] [place] [facility] [address] [id number] [place] [address] 14 Sep, 2010 [facility] [place] [facility] [address] [id number] [place] [address] Jul, [facility] [place] [facility] [address] [id number] [place] [address] 16 Jul, 2010 [facility] [place] [facility] [address] [id number] [place] [address] May, [facility] [place] [facility] [address] [id number], [place] [address] May, [facility] [place] [facility] [address] [id number] [place] [address] 08 May, 2010 [facility] [place] [facility] [address] [id number] [place] [address] May, [facility] [place] [facility] [address] [id number] [place] [address] Apr, [facility] [place] [facility] [address] [id number] [place] [address] Apr, [facility] [place] [facility] [address] [id number] [place] [address] Apr, [facility] [place] [facility] [address] [id number] [place] [address] Apr, [facility] [place] [facility] [address] [id number] [place] [address] Apr, [facility] [place] [facility] [address] [id number] [place] [address] Mar, [facility] [place] [facility] [address] [id number] [place] [address] 14 Mar, 2010 [facility] [place] [facility] [address] [id number] [place] [address] Mar, [facility] [place] [facility] [address] [id number], [place] [address] Mar, [facility] [place] [facility] [address] [id number], [place] [address] Jan, [facility] [place] [facility] [address] [id number] [place] [address] 15 Dec, 2009 [facility] [place] [facility] [address] [id number], [place] [address] 10 Sep, 2009 [facility] [place] [facility] [address] [id number] [place] [address] May, [facility] [place] [facility] [id number], [place] [address] May, [facility] [place] [facility] [id number], [place] [address] May, [facility] [place] [facility] [id number], [place] [address] Apr, [facility] [place] [facility] [id number] [address] Apr, [facility] [place] [facility] [address] [id number], [place] [address] Apr, [facility] [place] [facility] [id number] [place] [address]- [address] Apr, [facility] [place] [facility] [id number] [place] [address] Apr, [facility] [place] [facility] [id number] [place] [address] Mar, [facility] [place] [facility] [id number], [place] [address] Mar, [facility] [place] [facility] [id number] [address] Jul, IMMUNIZATIONS No Known Immunizations SOCIAL HISTORY Never Assessed REASON FOR VISIT Lab (walk-in) PLAN OF CARE VITAL SIGNS MEDICATIONS Unknown Medications RESULTS Name Result Date Reference Range HEMOGLOBIN (IN HOUSE) 2018-03-27 HEMOGLOBIN 12.1 11.5 - 16 gm/dL Lot # [id number] Exp date [id number] PROCEDURES Procedure Date Ordered Result Body Site HEMOGLOBIN Mar 27, 2018 INSTRUCTIONS MEDICATIONS ADMINISTERED No Known Medications [...] the January before. 03/2018 Hospitalization History Cellulitis-[facility] 12/20/15 [facility]- Abd pain 03/07/2017 [facility] Abd pain 03/14/2017 [facility]- No bowel movement, rash 04/13/2017 [facility]- Abd pain r/t kidney surgery on 04/17/2017 [facility]- Abd pain r/t kidney surgery on 04/18/2017 [facility]- Lower abd pain 04/30/2017 [facility]- Cannot urinate 05/30/2017 [facility]- Pancreatitis Sx 06/29/2017 [facility]- Stomach pain 07/22/2017 [facility]- Left side pain 08/12/2017 [facility]- Incision site infection 08/30/2017 Hospitalization History [facility]- Post Op Seroma/Hematoma Left Abdomen. Discharged 09/04/17- Dr Daniel 09/02/2017 [facility]ization [facility]- Right shoulder and back pain 2017 Hospitalization History [facility]- Shoulder/Back pain 11/11/2017 [facility]- Right shoulder blade pain 12/04/2017 Hospitalization [facility]- C-Diff 12/13/2017 Hospitalization History C diff et MRSA 12/27/2017
--- OUTSIDE RECORDS SUMMARY | 2018-04-29 10:28 | XMS REPORT ---
Author Author SAI CARMEN Organization [facility] Address [address] [place] [address] Care Team Providers Care Runner Worker Name Role Phone SAICORTNEY KOENIGHANY Unavailable PROBLEMS Type Condition ICD9-CM Code RNT92-AF Code Onset Dates Condition Status SNOMED Code Problem Atelectasis J98.11 Active 75691446 Problem Restless leg syndrome G25.81 Active 86376172 Problem Trichotillomania F63.3 Active 23296960 Problem Primary osteoarthritis of right knee M17.11 Active 481117513207607 Problem Intestinal malabsorption, unspecified K90.9 Active 62736772 Problem Chronic post-traumatic stress disorder (PTSD) F43.12 Active 222726354 Problem Generalized social phobia F40.11 Active 91180019 Problem Chronic fatigue R53.82 Active 96145505 Problem Moderate episode of recurrent major depressive disorder F33.1 Active 727975023 Problem Chronic tension-type headache, intractable G44.221 Active 067854742 Problem Morbid (severe) obesity due to excess calories E66.01 Active 455689481 Problem Nodule of left lung R91.1 Active 043008702 Problem History of renal cell carcinoma Z85.528 Active 647639393 Problem FH: polycystic ovary Z84.2 Active 516288282 Problem Chronic pancreatitis K86.1 Active 592509277 Problem Hyperlipidemia, mixed E78.2 Active 911917869 Problem Asthma J45.909 Active 488788137 Problem Hirsuties L68.0 Active 099800174 Problem Polydipsia R63.1 Active 66751770 ALLERGIES No Information ENCOUNTERS Encounter Location Date Diagnosis [facility] [address] [facility] [id number] [address] Mar, Rectal bleeding K62.5 [facility] [address] [facility] [id number] [address] Mar, Rectal bleeding K62.5 [facility] [address] [place] [id number] [place] [address] 88055- 7619 Mar, Urinary urgency R39.15 [facility] [id number] [place] [address] 09530- 0320 Mar, Urinary urgency R39.15 [facility] [id number] [place] [address] 28708- 0197 Mar, Primary osteoarthritis of right knee M17.11 and BMI 45.0- 49.9, adult Z68.42 [facility] [id number] [place] [address] 67864- 5851 Mar, [place] [id number] [place] [address] 71219- 3695 Feb, Left upper arm pain M79.622 [place] [id number] [place] [address] 71223- 3998 Feb, [facility] [id number] [place] [address] 10663- 9185 Jan, Acute pain of right knee M25.561 ; Right upper quadrant abdominal pain R10.11 and BMI 45.0-49.9, adult Z68.42 [facility] [id number] [place] [address] 55538- 5195 Jan, [facility] [id number] [place] [address] 77040- 2543 Jan, [facility] [id number] [place] [address] 43334- 5891 Dec, [facility] [id number] [place] [address] 04641- 4710 Dec, Intestinal malabsorption, unspecified K90.9 and Diarrhea, unspecified R19.7 [facility] [id number] [place] [address] 34737- 0974 Dec, [facility] [id number] [place] [address] 47170- 9068 Dec, Strep throat J02.0 ; Intestinal malabsorption, unspecified K90.9 ; Diarrhea, unspecified R19.7 ; Postoperative seroma involving digestive system after non-digestive system procedure K91.873 ; Hyperlipidemia, mixed E78.2 and BMI 45.0-49.9, adult Z68.42 [facility] [address] [address] 70[address] Dec, [facility] [address], [place] [address] 4152 Dec, Nausea R11.0 [facility] [id number] [place] [address] 94463- 5247 Dec, [facility] [address], [place] [address] Dec, Sore throat J02.9 ; Strep throat J02.0 and BMI 45.0-49.9, adult Z68.42 [facility] [address], [place] [address] 8399 Dec, [facility] [address], [place] [address]- 9461 Dec, [facility] [address], [place] [address]- 8126 Dec, [facility] [address], [place] [address]- 2819 Dec, [facility] [address], [place] [address]- 9640 Dec, [facility] [address], [place] [address]- 0714 Dec, [facility] [address], [place] [address]- 2868 Dec, [facility] [address], [place] [address]- 8827 Dec, [facility] [address], [place] [address] 1339 Dec, Clostridium difficile colitis A04.72 ; Intractable vomiting with nausea, unspecified vomiting type R11.2 and BMI 45.0-49.9, adult Z68.42 [facility] [id number] [place] [address] 74704- 0561 Dec, [facility] [id number] [place] [address] 87837- 7459 Nov, [facility] [id number] [place] [address] 70545- 4345 Nov, [facility] [id number] [place] [address] 79578- 0663 Nov, [facility] [id number] [place] [address] 43112- 5005 Nov, [facility] [id number] [place] [address] 81879 -5780 Nov, [facility] [id number] [place] [address] 21874- 0245 Nov, Hyperlipidemia, mixed E78.2 [facility] [id number] [place] [address] 24878 -2107 Nov, Acute suppurative otitis media of right ear without spontaneous rupture of tympanic membrane, recurrence not specified H66.001 and BMI 45.0-49.9, adult Z68.42 [facility] [id number] [place] [address] 01627- 3503 Nov, Hyperlipidemia, mixed E78.2 [facility] [id number] [place] [address] 14995- 3101 Nov, [facility] [id number] [place] [address] 46128- 8381 Nov, [facility] [id number] [place] [address] 90040- 4319 Nov, Nodule of left lung R91.1 [place] [id number] [place] [address] 12311- 2755 Nov, Medicare annual wellness visit, initial Z00.00 [...] adult Z68.42 and Encounter for immunization Z23 [place] [id number] [place] [address] 08221- 0399 October, [place] [id number] [place] [address] 89767- 8227 October, Nodule of left lung R91.1 [place] [id number] [place] [address] 19723- 4530 October, Nodule of left lung R91.1 [place] [id number] [place] [address] 25566- 1229 October, Recurrent major depressive disorder, in partial remission F33.41 ; Restless leg syndrome G25.81 ; Generalized social phobia F40.11 ; Chronic post-traumatic stress disorder (PTSD) F43.12 ; BMI 45.0-49.9, adult Z68.42 and Trichotillomania F63.3 [place] [id number] [place] [address] 15888- 9832 October, [place] [id number] [place] [address] 71568- 9923 Sep, Chronic fatigue R53.82 and BMI 45.0-49.9, adult Z68.42 [place] [id number] [place] [address] 75150- 9701 Aug, [place] [id number] [place] [address] 39553- 8657 Jul, Restless leg syndrome G25.81 and B12 deficiency E53.8 [facility] [id number] [place] [address] 71752- 5840 Jul, [place] [id number] [place] [address] 13181- 7639 Jul, [place] [id number] [place] [address] 05166- 0807 Jun, [place] [address] 65146- 9366 Jun, Fatigue, unspecified type R53.83 ; History of renal cell carcinoma Z85.528 ; Chronic pancreatitis K86.1 ; Restless leg syndrome G25.81 ; Dark urine R82.99 and BMI 45.0-49.9, adult Z68.42 [place] [id number] [place] [address] 06358- 9551 Jun, [place] [id number] [place] [address] 29227- 6907 Jun, [place] [id number] [place] [address] 50586- 3165 Jun, [place] [id number] [place] [address] 60953- 6274 Jun, [place] [id number] [place] [address] 29179- 3481 May, Chronic post-traumatic stress disorder (PTSD) F43.12 ; Moderate episode of recurrent major depressive disorder F33.1 ; Trichotillomania F63.3 and Generalized social phobia F40.11 [place] [id number] [place] [address] 20134- 8127 May, [place] [id number] [place] [address] 05067- 7507 14 May, 2017 Chronic post-traumatic stress disorder (PTSD) F43.12 ; Moderate episode of recurrent major depressive disorder F33.1 ; Trichotillomania F63.3 and Generalized social phobia F40.11 [place] [address], [place] [address]- 4585 07 May, 2017 Hyperlipidemia, mixed E78.2 ; Morbid (severe) obesity due to excess calories E66.01 ; Chronic post-traumatic stress disorder (PTSD) F43.12 ; Moderate episode of recurrent major depressive disorder F33.1 ; Trichotillomania F63.3 and Generalized social phobia F40.11 [place] [id number] [place] [address] 72048- 3174 30 Apr, 2017 [place] [id number] [place] [address] 57835- 0415 29 Apr, 2017 Hyperlipidemia, mixed E78.2 ; Morbid (severe) obesity due to excess calories E66.01 ; Chronic post-traumatic stress disorder (PTSD) F43.12 ; Moderate episode of recurrent major depressive disorder F33.1 ; Trichotillomania F63.3 and Generalized social phobia F40.11 [place] [id number] [place] [address] 92092- 0577 Apr, Trichotillomania F63.3 ; Generalized social phobia F40.11 ; Chronic post-traumatic stress disorder (PTSD) F43.12 and Moderate episode of recurrent major depressive disorder F33.1 [place] [id number] [place] [address] 41222- 9310 Apr, [place] [id number] [place] [address] 37539- 1365 Apr, [place] [id number] [place] [address] 60438- 5846 Mar, Moderate episode of recurrent major depressive disorder F33.1 ; Trichotillomania F63.3 ; Chronic post-traumatic stress disorder (PTSD) F43.12 ; Generalized social phobia F40.11 and Restless leg syndrome G25.81 [facility] [id number] [place] [address] 28097- 0983 Mar, [facility] [id number] [place] [address] 66083- 1101 Mar, [facility] [id number] [place] [address] 78683- 7774 Feb, Left kidney mass N28.89 [facility] [id number] [place] [address] 87905- 7088 Jan, [facility] [id number] [place] [address] 49607- 4785 Dec, Polydipsia R63.1 ; Chronic pancreatitis K86.1 and Fatigue, unspecified type R53.83 [place] [id number] [place] [address] 41679- 8802 Nov, [place] [id number] [place] [address] 46015- 9001 Nov, [facility] [id number] [place] [address] 51863- 0523 Nov, Headache around the eyes R51 [place] [id number] [place] [address] 99860- 5405 Nov, [place] [id number] [place] [address] 29219- 0687 October, STD exposure Z20.2 [facility] [id number] [place] [address] 08546- 0330 October, STD exposure Z20.2 [place] [id number] [place] [address] 80180- 8624 October, Chronic post-traumatic stress disorder (PTSD) F43.12 ; Generalized social phobia F40.11 ; Trichotillomania F63.3 and Restless leg syndrome G25.81 [place] [id number] [place] [address] 33027- 5693 October, [facility] [address] [place] [address] 46017- 5574 Sep, [facility] [id number] [place] [address] 71819- 2820 Aug, [place] [id number] [place] [address] 69348- 7624 Aug, [place] [id number] [place] [address] 02114- 8355 Aug, Neck mass R22.1 [place] [address] 14497- 7157 Aug, Atelectasis J98.11 [place] [id number] [place] [address] 00932- 1959 28 Jul, 2016 Hyperlipidemia, mixed E78.2 ; Atypical pneumonia J18.9 and Neck mass R22.1 [place] [id number] [place] [address] 59835- 0228 15 Jul, 2016 Hemoptysis R04.2 [place] [id number] [place] [address] 05197- 7093 08 Jul, 2016 Acute non-recurrent pansinusitis J01.40 ; Hemoptysis R04.2 ; Polydipsia R63.1 and Malaise R53.81 [facility] [address] [place] [id number] [place] [address] 85929 -8221 May, Other viral agents as the cause of diseases classified elsewhere B97.89 and Acute upper respiratory infection, unspecified J06.9 [facility] [place] [id number] [place] [address] 64071 -5534 Mar, Nausea R11.0 [facility] [place] [id number] [place] [address] 32349 -5232 Dec, Hives L50.9 [place] [id number] [place] [address] 78723- 1217 14 Dec, 2015 [facility] [place] [id number], [place] [address] -1460 10 Dec, 2015 Cutaneous abscess of limb, unspecified L02.419 ; Cellulitis of unspecified part of limb L03.119 ; Encounter for incision and drainage procedure Z01.89 and Encounter for recheck of abscess following incision and drainage Z09 [facility] [place] [address], [place] [address]76 09 Dec, 2015 Abscess of leg, right L02.415 [place] [address] [place] [address] 17018- 1685 08 Dec, 2015 Cellulitis of unspecified part of limb L03.119 and Cutaneous abscess of limb, unspecified L02.419 [place] [address], [place] [address]- 1151 Dec, [place] [id number] [place] [address] 76324- 4754 Dec, [facility] [place] [address], [place] [address] -3443 Aug, [place] [id number] [place] [address] 80753- 5085 Aug, [facility] [place] [address], [place] [address] -6871 Jul, Pain in unspecified wrist M25.539 and Back pain, thoracic M54.6 [facility] [place] [id number], [place] [address] -0395 Jun, Strain of right wrist, initial encounter S66.911A [place] [address] [place] [address] 77453- 8939 Jun, Chronic pancreatitis, unspecified pancreatitis type K86.1 ; Hirsuties L68.0 ; Morbid (severe) obesity due to excess calories E66.01 ; Chronic pancreatitis K86.1 and Asthma J45.909 [facility] [id number] [place] [address] 05807- 9463 May, [facility] [address] 74099- 0065 May, Hyperlipidemia, mixed E78.2 and Muscle spasm of back M62.830 [facility] [address] 77162- 1813 Apr, [facility] [address] 69949- 3696 Apr, Torticollis M43.6 [facility] [address] 96750- 7227 Apr, Right-sided thoracic back pain M54.6 [facility] [address] 33096- 4537 Mar, Rash R21 [facility] [address] 10087- 6256 Mar, [facility] [id number] [place] [address] 27278- 5142 Jan, [facility] [id number] [place] [address] 54936- 2024 Dec, [facility] [id number] [place] [address] 87740- 3550 Dec, Urinary frequency 788.41 and Nocturia more than twice per night 788.43 [facility] [id number] [place] [address] 32012- 9359 Nov, [facility] [address] 54018- 4200 Nov, [facility] [id number] [place] [address] 22752- 5031 Nov, Abdominal pain 789.00 [facility] [address] 16312- 7660 October, TDAP DX V06.1 [facility] [address], [place] [address]- 5715 October, [facility] [id number] [address]- 5333 October, Disturbance of skin sensation 782.0 ; Wrist pain, right 719.43 ; Hyperlipidemia 272.4 and Skin lesion of face 709.9 [facility] [id number] [address]- 7892 Sep, [facility] [id number] [place] [address] 23555- 1867 Sep, [facility] [id number] [place] [address] 13529- 6247 Aug, [facility] [id number] [place] [address] 49209- 7915 Aug, [facility] [address], [place] [address]- 1130 Aug, [facility] [address], [place] [address]- 2298 Aug, [facility] [address], [place] [address]- 6104 Aug, [facility] [address], [place] [address]- 7363 16 Aug, 2014 [facility] [address], [place] [address]- 4790 Aug, [facility] [address], [place] [address]- 3754 Aug, [facility] [address] 8097 Aug, [facility] [address], [place] [address]- 9198 Aug, [facility] [place] [facility] [address] [id number] [place] [address]- 7236 Aug, [facility] [place] [facility] [address] [id number] [place] [address]- 3956 Aug, [facility] [place] [facility] [address] [id number] [place] 9410 Aug, [facility] [place] [facility] [address] [id number] [place] [address]- 2746 Aug, [facility] [place] [facility] [address] [id number] [place] [address]- 8297 Jul, [facility] [place] [facility] [address] [id number] [place] [address]- 2356 Jul, [facility] [place] [facility] [address] [id number] [place] [address]- 4414 Jul, [facility] [place] [facility] [address] [id number] [place] [address]- 0710 Jul, [facility] [place] [facility] [address] [id number] [place] [address]- 6691 Jul, [facility] [place] [facility] [address] [id number] [place] [address]- 6984 Jul, [facility] [place] [facility] [address] [id number] [place] [address]- 1168 Jun, [facility] [place] [facility] [address] [id number], [place] [address]- 0472 Jun, [facility] [place] [facility] [address] [id number] [place] [address]- 9900 Jun, [facility] [place] [facility] [address] [id number] [place] [address]- 4839 Jun, [facility] [place] [facility] [address] [id number] [place] [address]- 9005 Jun, [facility] [place] [facility] [address] [id number], [place] [address]- 4843 Jun, [facility] [place] [facility] [address] [id number] [place] [address]- 1602 15 Jun, 2014 [facility] [place] [facility] [address] [id number] [place] 2967 15 Jun, 2014 [facility] [place] [facility] [address] [id number] [place] [address]- 9491 May, [facility] [place] [facility] [address] [id number] [place] [address]- 7982 May, [facility] [place] [facility] [address] [id number] [place] [address]- 5698 May, [facility] [place] [facility] [address] [id number] [place] [address]- 2812 May, [facility] [place] [facility] [address] [id number] [place] [address]- 8635 May, [facility] [place] [facility] [address] [id number] [place] [address]- 3402 May, [facility] [place] [facility] [address] [id number] [place] [address]- 8447 May, [facility] [place] [facility] [address] [id number] [place] [address]- 0740 May, [facility] [place] [facility] [address] [id number] [place] [address]- 7666 May, [facility] [place] [facility] [address] [id number] [place] [address]- 7613 May, [facility] [place] [facility] [address] [id number] [place] [address]- 2068 May, [facility] [place] [facility] [address] [id number] [place] [address] May, [facility] [place] [facility] [address] [id number] [place] [address] Apr, [facility] [place] [facility] [address] [id number] [place] [address] Apr, [facility] [place] [facility] [address] [id number] [place] [address] Apr, [facility] [place] [facility] [address] [id number] [place] [address] Apr, [facility] [place] [facility] [address] [id number] [place] [address] Apr, [facility] [place] [facility] [address] [id number] [place] [address] Apr, [facility] [place] [facility] [address] [id number] [place] [address] Apr, [facility] [place] [facility] [address] [id number] [place] [address] Apr, [facility] [place] [facility] [address] [id number] [place] [address] Apr, [facility] [place] [facility] [address] [id number] [place] [address] Apr, [facility] [place] [facility] [address] [id number] [place] [address] Apr, [facility] [place] [facility] [address] [id number] [place] [address] Apr, [facility] [place] [facility] [address] [id number] [place] [address] Mar, [facility] [place] [facility] [address] [id number] [place] [address] Mar, [facility] [place] [facility] [address] [id number] [place] [address] Mar, [facility] [place] [facility] [address] [id number] [place] [address] Mar, [facility] [place] [facility] [address] [id number] [place] [address] Feb, [facility] [place] [facility] [address] [id number] [place] [address] Feb, 2013 [facility] [place] [facility] [address] [id number] [place] [address] Feb, 2013 [facility] [place] [facility] [address] [id number] [place] [address] Feb, 2013 [facility] [place] [facility] [address] [id number] [place] [address] Feb, 2013 [facility] [place] [facility] [address] [id number] [place] [address] Feb, 2013 [facility] [place] [facility] [address] [id number] [place] [address] Jan, [facility] [place] [facility] [address] [id number] [place] [address] Jan, [facility] [place] [facility] [address] [id number] [place] [address] Jan, [facility] [place] [facility] [address] [id number] [place] [address] Jan, [facility] [place] [facility] [address] [id number] [place] [address] Jan, [facility] [place] [facility] [address] [id number] [place] [address] Jan, [facility] [place] [facility] [address] [id number] [place] [address] Jan, [facility] [place] [facility] [address] [id number] [place] [address] Jan, [facility] [place] [facility] [address] [id number] [place] [address] Jan, [facility] [place] [facility] [address] [id number] [place] [address] Jan, [facility] [place] [facility] [address] [id number] [place] [address] Jan, [facility] [place] [facility] [address] [id number] [place] [address] Jan, [facility] [place] [facility] [address] [id number] [place] [address] Jan, [facility] [place] [facility] [address] [id number] [place] [address] Jan, [facility] [place] [facility] [address] [id number] [place] [address] 2956 Dec, [facility] [place] [facility] [address] [id number] [place] [address] 7[address] Dec, [facility] [place] [facility] [address] [id number] [place] [address] 9595 Dec, [facility] [place] [facility] [address] [id number] [place] [address] 5723 Dec, [facility] [place] [facility] [address] [id number] [place] [address]- 8485 Nov, [facility] [place] [facility] [address] [id number] [place] [address]- 4026 Nov, [facility] [place] [facility] [address] [id number] [place] [address] 6046 Nov, [facility] [place] [facility] [address] [id number] [place] [address] 8852 Nov, [facility] [place] [facility] [address] [id number] [place] [address] 9010 Nov, [facility] [place] [facility] [address] [id number] [place] [address]- 0306 October, [facility] [place] [facility] [address] [id number] [place] [address]- 5793 October, [facility] [place] [facility] [address] [id number] [place] [address]- 4517 October, [facility] [place] [facility] [address] [id number] [place] [address]- 4497 October, [facility] [place] [facility] [address] [id number] [place] [address] 4446 October, [facility] [place] [facility] [address] [id number] [place] [address] 4636 October, [facility] [place] [facility] [address] [id number] [place] [address]- 0185 October, [facility] [place] [facility] [address] [id number] [place] [address]- 9595 October, [facility] [place] [facility] [address] [id number] [place] [address]- 9707 October, [facility] [place] [facility] [address] [id number] [place] [address] 9945 October, [facility] [place] [facility] [address] [id number] [place] [address] 5812 October, [facility] [place] [facility] [address] [id number] [place] [address]- 0767 October, [facility] [place] [facility] [address] [id number] [place] [address]- 7712 October, [facility] [place] [facility] [address] [id number] [place] [address]- 2992 October, [facility] [place] [facility] [address] [id number] [place] [address]- 8030 Sep, [facility] [place] [facility] [address] [id number] [place] [address]- 1852 Sep, [facility] [place] [facility] [address] [id number] [place] [address]- 3738 Sep, [facility] [place] [facility] [address] [id number] [place] [address]- 5013 Sep, [facility] [place] [facility] [address] [id number] [place] [address]- 4377 Sep, [facility] [place] [facility] [address] [id number] [place] [address]- 4567 Sep, [facility] [place] [facility] [address] [id number] [place] [address]- 0992 Sep, [facility] [place] [facility] [address] [id number] [place] [address]- 8370 Sep, [facility] [place] [facility] [address] [id number] [place] [address]- 5189 Sep, [facility] [place] [facility] [address] [id number] [place] [address]- 6153 Sep, [facility] [place] [facility] [address] [id number] [place] [address]- 9147 Sep, [facility] [place] [facility] [address] [id number] [place] [address]- 3155 Sep, [facility] [place] [facility] [address] [id number] [place] [address]- 5004 Sep, [facility] [place] [facility] [address] [id number] [place] [address]- 1068 Sep, [facility] [place] [facility] [address] [id number] [place] [address]- 3700 Sep, [facility] [place] [facility] [address] [id number] [place] [address]- 4022 Aug, [facility] [place] [facility] [address] [id number] [place] [address]- 3346 Aug, [facility] [place] [facility] [address] [id number] [place] [address]- 7137 Aug, [facility] [place] [facility] [address] [id number] [place] [address]- 9191 Aug, [facility] [place] [facility] [address] [id number] [place] [address]- 9681 Jul, [facility] [place] [facility] [address] [id number] [place] [address]- 6918 06 Jul, 2013 [facility] [address] [id number] [place] [address]- 7669 Jul, [facility] [place] [facility] [address] [id number] [place] [address]- 1636 Jul, [facility] [address] [id number] [place] [address]- 4737 Jun, [facility] [place] [facility] [address] [id number] [place] [address]- 8935 Jun, [facility] [address] [id number] [place] [address]- 8964 Jun, [facility] [address] [id number] [place] [address]- 4290 Jun, [facility] [address] [id number] [place] [address]- 9184 Jun, [facility] [address] [id number] [place] [address]- 6518 Jun, [facility] [address] [id number] [place] [address]- 4147 Jun, [facility] [address] [id number] [place] [address]- 4958 Jun, [facility] [address] [id number] [place] [address]- 9162 May, [facility] [place] [facility] [address] [id number] [place] [address]- 0377 May, [facility] [place] [facility] [address] [id number] [place] [address]- 3706 May, [facility] [place] [facility] [address] [id number] [place] [address]- 7786 May, [facility] [place] [facility] [address] [id number] [place] [address]- 6387 May, [facility] [place] [facility] [address] [id number] [place] [id number] 17 May, 2013 [facility] [place] [facility] [address] [id number] [place] [address]- 7106 17 May, 2013 [facility] [place] [facility] [address] [id number] [place] [address] 17 May, 2013 [facility] [place] [facility] [address] [id number] [place] [address]- 7567 16 May, 2013 [facility] [place] [facility] [address] [id number] [place] [address] 16 May, 2013 [facility] [place] [facility] [address] [id number] [place] [address]- 8265 14 May, 2013 [facility] [place] [facility] [address] [id number] [place] [address]- 0622 14 May, 2013 [facility] [place] [facility] [address] [id number] [place] [address]- 1469 13 May, 2013 [facility] [place] [facility] [address] [id number] [place] [address]- 2796 13 May, 2013 [facility] [place] [facility] [address] [id number] [place] [address]- 8846 12 May, 2013 [facility] [place] [facility] [address] [id number], [place] [address]- 7332 12 May, 2013 [facility] [place] [facility] [address] [id number], [place] [address]- 8333 11 May, 2013 [facility] [place] [facility] [address] [id number] [place] [address]- 3768 11 May, 2013 [facility] [place] [facility] [address] [id number], [place] [address]- 0671 26 Apr, 2013 [facility] [place] [facility] [address] [id number][place] 8852 Apr, [facility] [place] [facility] [address] [id number], [place] [address]- 5943 Apr, [facility] [address] [id number] [place] [address]- 3047 Apr, [facility] [address] [id number] [place] [address]- 8373 Aug, [facility] [address] [id number] [place] [address]- 0436 Aug, [facility] [address] [id number] [place] [address]- 7290 Aug, [facility] [address] [id number] [place] [address]- 0753 Aug, [facility] [address] [id number] [place] [address]- 8322 Jul, [facility] [address] [id number] [place] [address]- 9196 Jun, [facility] [address] [id number] [place] [address]- 0469 Jun, [facility] [address] [facility] [id number] [place] [address]- 0026 Jun, [facility] [address] [facility] [id number] [place] [address]- 5426 Jun, [facility] [address] [id number] [place] [address]- 2476 May, [facility] [address] [id number] [place] [address]- 1644 May, [facility] [address] [id number] [place] [address]- 7243 May, [facility] [address] [id number] [place] [address]- 6083 May, [facility] [address] [facility] [id number] [place] [address]- 3637 May, [facility] [place] [facility] [address] [id number] [place] [address]- 1967 May, [facility] [place] [facility] [address] [id number] [place] [address] May, [facility] [place] [facility] [address] [id number] [place] [address]- 5482 Apr, [facility] [place] [facility] [address] [id number] [place] [address]- 7395 Apr, [facility] [place] [facility] [address] [id number] [place] [address]- 2510 Apr, [facility] [place] [facility] [address] [id number] [place] [address]- 6761 Apr, [facility] [place] [facility] [address] [id number] [place] [address]- 4856 Apr, [facility] [place] [facility] [address] [id number] [place] [address]- 2343 Apr, [facility] [place] [facility] [address] [id number] [place] [address]- 2141 Apr, [facility] [place] [facility] [address] [id number] [place] [address]- 5815 Mar, [facility] [place] [facility] [address] [id number] [place] [address]- 1869 Mar, [facility] [place] [facility] [address] [id number] [place] [address]- 2787 Mar, [facility] [place] [facility] [address] [id number] [place] [address]- 5175 Mar, [facility] [place] [facility] [address] [id number] [place] [address]- 3008 Mar, [facility] [place] [facility] [address] [id number] [place] [address]- 7609 Mar, [facility] [place] [facility] [address] [id number], [place] [address]- 3203 Mar, [facility] [place] [facility] [address] [id number] [place] [address]- 0177 Mar, [facility] [place] [facility] [address] [id number] [place] [address]- 0496 Mar, [facility] [place] [facility] [address] [id number] [place] [address] 2546 Mar, [facility] [place] [facility] [address] [id number] [place] [address]- 6955 Mar, [facility] [place] [facility] [address] [id number] [place] [address]- 2691 Mar, [facility] [place] [facility] [address] [id number] [place] [address]- 4024 Feb, [facility] [place] [facility] [address] [id number] [place] [address]- 5139 Jan, [facility] [place] [facility] [address] [id number], [place] [address]- 0006 Jan, [facility] [place] [facility] [address] [id number] [place] [address]- 1581 Jan, [facility] [place] [facility] [address] [id number], [place] [address]- 3950 Jan, [facility] [place] [facility] [address] [id number], [place] [address]- 4107 Jan, [facility] [place] [facility] [address] [id number], [place] [address]- 7687 Dec, [facility] [place] [facility] [address] [id number] [place] [address] 2548 Dec, [facility] [place] [facility] [address] [facility] [id number], [place] [address]- 6546 Nov, [facility] [place] [facility] [address] [id number], [place] [address]- 2546 Nov, [facility] [place] [facility] [address] [id number] [place] [address]- 9139 Nov, [facility] [address] [id number] [place] [address]- 9480 October, [facility] [address] [id number] [place] [address]- 6776 October, [facility] [address] [id number] [place] [address]- 2911 October, [facility] [address] [id number] [place] [address]- 7231 October, [facility] [address] [id number] [place] [address]- 9529 October, [facility] [address] [id number] [place] [address]- 5844 October, [facility] [address] [id number] [place] [address]- 0933 October, [facility] [address] [id number] [place] [address]- 9995 Sep, [facility] [address] [id number] [place] [address]- 7030 Sep, [facility] [address] [id number] [place] [address]- 7532 Sep, [facility] [address] [id number] [place] [address]- 2559 Sep, [facility] [address] [id number] [place] [address]- 7970 24 Sep, 2011 [facility] [place] [facility] [address] [id number] [place] [address]- 6468 19 Sep, 2011 [facility] [place] [facility] [address] [id number] [place] [address]- 9586 17 Sep, 2011 [facility] [address] [id number] [place] [address]- 4888 16 Sep, 2011 [facility] [place] [facility] [address] [id number] [place] [address]- 1380 16 Sep, 2011 [facility] [place] [facility] [address] [id number] [place] [address]- 8896 14 Sep, 2011 [facility] [place] [facility] [address] [id number] [place] [address]- 3976 13 Sep, 2011 [facility] [place] [facility] [address] [id number] [place] [address]- 7901 10 Sep, 2011 [facility] [address] [id number] [place] [address]- 4381 09 Sep, 2011 [facility] [place] [facility] [address] [id number] [place] [address]- 9013 27 Aug, 2011 [facility] [place] [facility] [address] [id number] [place] [address]- 5125 12 Aug, 2011 [facility] [place] [facility] [address] [id number] [place] [address]- 4515 08 Aug, 2011 [facility] [place] [facility] [address] [id number] [place] [address]- 8594 06 Aug, 2011 [facility] [place] [facility] [address] [id number] [place] [address]- 1568 28 Jul, 2011 [facility] [place] [facility] [address] [id number] [place] [address]- 9259 22 Jul, 2011 [facility] [place] [facility] [address] [id number] [place] [address]- 8087 16 Jul, 2011 [facility] [place] [facility] [address] [id number] [place] [address]- 3532 15 Jul, 2011 [facility] [place] [facility] [address] [id number] [place] [address]- 8446 14 Jul, 2011 [facility] [place] [facility] [address] [id number] [place] [address]- 7936 10 Jul, 2011 [facility] [place] [facility] [address] [id number] [place] [address]- 0064 30 Jun, 2011 [facility] [address] [id number] [place] [address]- 4598 Jun, [facility] [address] [id number] [place] [address]- 3335 Jun, [facility] [address] [id number] [place] [address]- 7563 Jun, [facility] [address] [id number] [place] [address]- 7459 Jun, [facility] [address] [id number] [place] [address]- 9874 May, [facility] [address] [id number] [place] [address]- 8661 May, [facility] [address] [id number] [place] [address]- 2910 14 May, 2011 [facility] [place] [facility] [address] [id number] [place] [address]- 3927 14 May, 2011 [facility] [address] [id number] [place] [address]- 6629 May, [facility] [address] [id number] [place] [address]- 0560 May, [facility] [address] [id number] [place] [address]- 2717 05 May, 2011 [facility] [place] [facility] [address] [id number] [place] [address]- 8691 15 Apr, 2011 [facility] [place] [facility] [address] [id number] [place] [address]- 5965 15 Apr, 2011 [facility] [place] [facility] [address] [id number] [place] [address]- 4001 Apr, [facility] [place] [facility] [address] [id number] [place] [address]- 6985 07 Apr, 2011 [facility] [place] [facility] [address] [id number] [place] [address]- 8882 Apr, [facility] [place] [facility] [address] [id number] [place] [address]- 3648 Apr, [facility] [place] [facility] [address] [id number] [place] [address]- 0824 Mar, [facility] [place] [facility] [address] [id number] [place] [address]- 2603 Mar, [facility] [place] [facility] [address] [id number] [place] [address]- 1241 Mar, [facility] [place] [facility] [address] [id number] [place] [address]- 0386 Mar, [facility] [place] [facility] [address] [id number] [place] [address]- 4083 Jan, [facility] [place] [facility] [address] [id number] [place] [address]- 1478 Dec, [facility] [place] [facility] [address] [id number] [place] [address]- 4486 Dec, [facility] [place] [facility] [address] [id number] [place] [address]- 2075 October, [facility] [place] [facility] [address] [id number] [place] [address]- 4104 Sep, [facility] [place] [facility] [address] [id number] [place] [address]- 4820 14 Sep, 2010 [facility] [place] [facility] [address] [id number] [place] [address]- 3627 Jul, [facility] [place] [facility] [address] [id number] [place] [address]- 9912 16 Jul, 2010 [facility] [place] [facility] [address] [id number] [place] [address]- 3311 May, [facility] [place] [facility] [address] [id number], [place] [address]- 7669 May, [facility] [place] [facility] [address] [id number] [place] [address]- 6430 08 May, 2010 [facility] [place] [facility] [address] [id number] [place] [address]- 5676 May, [facility] [place] [facility] [address] [id number] [place] [address] Apr, [facility] [place] [facility] [address] [id number] [place] [address] 254 Apr, [facility] [place] [facility] [address] [id number] [place] [address] Apr, [facility] [place] [facility] [address] [id number] [place] [address] Apr, [facility] [place] [facility] [address] [id number] [place] [address] Apr, [facility] [place] [facility] [address] [id number] [place] [address] Mar, [facility] [place] [facility] [address] [id number] [place] [address] 14 Mar, 2010 [facility] [place] [facility] [address] [id number] [place] [address] Mar, [facility] [place] [facility] [address] [id number], [place] [address] Mar, [facility] [place] [facility] [address] [id number], [place] [address] Jan, [facility] [place] [facility] [address] [id number] [place] [address] 15 Dec, 2009 [facility] [place] [facility] [address] [id number], [place] [address] 10 Sep, 2009 [facility] [place] [facility] [address] [id number] [place] [address] May, [facility] [place] [facility] [id number], [place] [address] May, [facility] [id number], [place] [address] May, [facility] [id number], [place] [address] Apr, [facility] [id number], [place] [address] Apr, [facility] [id number] [place] [address] Apr, [facility] [id number] [place] [address]6- [address] Apr, [facility] [id number] [place] [address]- [address] Apr, [facility] [id number] [place] [address] Mar, [facility] [id number], [place] [address] Mar, [facility] [id number], [place] [address] Jul, IMMUNIZATIONS No Known Immunizations SOCIAL HISTORY [...] the January before. 03/2018 Hospitalization History Cellulitis-[facility] 12/20/15 Hospitalization History [facility]- Abd pain 03/07/2017 Hospitalization History [facility]- Abd pain 03/14/2017 Hospitalization History [facility]- No bowel movement, rash 04/13/2017 Hospitalization History [facility]- Abd pain r/t kidney surgery on 04/17/2017 Hospitalization History [facility]- Abd pain r/t kidney surgery on 04/18/2017 Hospitalization History [facility]- Lower abd pain 04/30/2017 Hospitalization History [facility]- Cannot urinate 05/30/2017 Hospitalization History [facility]- Pancreatitis Sx 06/29/2017 Hospitalization History [facility]- Stomach pain 07/22/2017 Hospitalization History [facility]- Left side pain 08/12/2017 Hospitalization History [facility]- Incision site infection 08/30/2017 Hospitalization History [facility]- Post Op Seroma/Hematoma Left Abdomen. Discharged 09/04/17- Dr Daniel 09/02/2017 Hospitalization History [facility]- Right shoulder and back pain 2017 Hospitalization History [facility]- Shoulder/Back pain 11/11/2017 Hospitalization History [facility]- Right shoulder blade pain 12/04/2017 Hospitalization History [facility]- C-Diff 12/13/2017 Hospitalization History C diff et MRSA 12/27/2017
--- OUTSIDE RECORDS SUMMARY | 2018-04-29 10:30 | XMS REPORT ---
Author Author SAI CARMEN Organization [facility] [place] Address [address] [place] [address] Care Team Providers Care Services Executive Name Role Phone SAICORTNEY KOENIGHANY Unavailable PROBLEMS Type Condition ICD9-CM Code IST63-HO Code Onset Dates Condition Status SNOMED Code Problem Atelectasis J98.11 Active 14763479 Problem Restless leg syndrome G25.81 Active 81467703 Problem Trichotillomania F63.3 Active 01915118 Problem Primary osteoarthritis of right knee M17.11 Active 526172792066705 Problem Intestinal malabsorption, unspecified K90.9 Active 35553950 Problem Chronic post-traumatic stress disorder (PTSD) F43.12 Active 838419044 Problem Generalized social phobia F40.11 Active 38703603 Problem Chronic fatigue R53.82 Active 14340568 Problem Moderate episode of recurrent major depressive disorder F33.1 Active 343270548 Problem Chronic tension-type headache, intractable G44.221 Active 908509188 Problem Morbid (severe) obesity due to excess calories E66.01 Active 527667793 Problem Nodule of left lung R91.1 Active 339756593 Problem History of renal cell carcinoma Z85.528 Active 937308503 Problem FH: polycystic ovary Z84.2 Active 850982896 Problem Chronic pancreatitis K86.1 Active 029515600 Problem Hyperlipidemia, mixed E78.2 Active 570421343 Problem Asthma J45.909 Active 083524738 Problem Hirsuties L68.0 Active 462436502 Problem Polydipsia R63.1 Active 09545636 ALLERGIES Substance Reaction Event Type Date Status Vancomycin HCl itching Drug Allergy Mar, Active Penicillin V Potassium Unknown Drug Allergy Mar, Active Fentanyl Unknown Drug Allergy Mar, Active Demerol Unknown Drug Allergy Mar, Active ENCOUNTERS Encounter Location Date Diagnosis [facility] [place] [address] [id number] [address] Mar, Rectal bleeding K62.5 [facility] [place] [id number] [place] [address] 09421- 9114 Mar, Rectal bleeding K62.5 [facility] [place] [id number] [place] [address] 24725- 5784 Mar, Urinary urgency R39.15 [facility] [place] [id number] [place] [address] 66071- 9580 Mar, Urinary urgency R39.15 [facility] [place] [id number] [place] [address] 26961- 9469 Mar, Primary osteoarthritis of right knee M17.11 and BMI 45.0- 49.9, adult Z68.42 [place] [id number] [place] [address] 03300- 1564 Mar, [place] [id number] [place] [address] 29389- 9929 Feb, Left upper arm pain M79.622 [facility] [place] [id number] [place] [address] 76273- 7342 Feb, [facility] [place] [id number] [place] [address] 93333- 6293 Jan, Acute pain of right knee M25.561 ; Right upper quadrant abdominal pain R10.11 and BMI 45.0-49.9, adult Z68.42 [facility] [place] [id number] [place] [address] 13048- 6679 Jan, [facility] [place] [id number] [place] [address] 64756- 7244 Jan, [facility] [place] [id number] [place] [address] 42371- 3016 Dec, [facility] [place] [id number] [place] [address] 84355- 5354 Dec, Intestinal malabsorption, unspecified K90.9 and Diarrhea, unspecified R19.7 [place] [address] [address] 6911 Dec, [facility] [place] [id number] [place] [address] 74103- 8561 Dec, Strep throat J02.0 ; Intestinal malabsorption, unspecified K90.9 ; Diarrhea, unspecified R19.7 ; Postoperative seroma involving digestive system after non-digestive system procedure K91.873 ; Hyperlipidemia, mixed E78.2 and BMI 45.0-49.9, adult Z68.42 [facility] [place] [id number] [place] [address] 98890- 6919 Dec, [facility] [place] [id number] [place] [address] 59433- 2698 Dec, Nausea R11.0 [facility] [place] [id number] [place] [address] 79286- 3342 Dec, [facility] [id number] [place] [address] 82220 -8536 Dec, Sore throat J02.9 ; Strep throat J02.0 and BMI 45.0-49.9, adult Z68.42 [facility] [place] [id number] [place] [address] 08579- 1784 Dec, [facility] [place] [address], [place] [address] 2537 Dec, [facility] [place] [id number] [place] [address] 03981- 7892 Dec, [facility] [place] [id number] [place] [address] 89211- 3742 Dec, [facility] [place] [id number] [place] [address] 39686- 2662 Dec, [facility] [place] [address], [place] [address] 3715 Dec, [facility] [place] [id number] [place] [address] 15591- 5714 Dec, [facility] [place] [address], [place] [address]- 3562 Dec, [facility] [place] [id number] [place] [address] 73590- 5685 Dec, Clostridium difficile colitis A04.72 ; Intractable vomiting with nausea, unspecified vomiting type R11.2 and BMI 45.0-49.9, adult Z68.42 [facility] [place] [id number] [place] [address] 98109- 0870 Dec, [facility] [place] [id number] [place] [address] 01226- 5691 Nov, [facility] [place] [id number] [place] [address] 71138- 3495 Nov, [facility] [place] [id number] [place] [address] 60916- 0535 Nov, [facility] [place] [id number] [place] [address] 46537- 3341 Nov, [facility] [id number] [place] [address] 09282 -9342 Nov, [facility] [place] [address], [place] [address]- 3167 Nov, Hyperlipidemia, mixed E78.2 [facility] [address], [place] [address] Nov, Acute suppurative otitis media of right ear without spontaneous rupture of tympanic membrane, recurrence not specified H66.001 and BMI 45.0-49.9, adult Z68.42 [facility] [place] [id number] [place] [address] 68076- 4290 Nov, Hyperlipidemia, mixed E78.2 [facility] [place] [address], [place] [address]- 6024 Nov, [facility] [place] [id number] [address]- 6307 Nov, [place] [id number] [place] [address] 59799- 7729 Nov, Nodule of left lung R91.1 [place] [id number] [place] [address] 38510- 2548 Nov, Medicare annual wellness visit, initial Z00.00 [...] adult Z68.42 and Encounter for immunization Z23 [place] [id number] [place] [address] 91397- 5103 October, [place] [id number] [place] [address] 32951- 5541 October, Nodule of left lung R91.1 [place] [id number] [place] [address] 14672- 7954 October, Nodule of left lung R91.1 [place] [id number] [place] [address] 65616- 7815 October, Recurrent major depressive disorder, in partial remission F33.41 ; Restless leg syndrome G25.81 ; Generalized social phobia F40.11 ; Chronic post-traumatic stress disorder (PTSD) F43.12 ; BMI 45.0-49.9, adult Z68.42 and Trichotillomania F63.3 [place] [id number] [place] [address] 61876- 4342 October, [place] [id number] [place] [address] 46512- 8344 Sep, Chronic fatigue R53.82 and BMI 45.0-49.9, adult Z68.42 [place] [id number] [place] [address] 41235- 2185 Aug, [facility] [place] [id number] [place] [address] 63321- 8226 Jul, Restless leg syndrome G25.81 and B12 deficiency E53.8 [place] [address] 62347- 3965 Jul, [place] [id number] [place] [address] 00194- 7156 Jul, [place] [id number] [place] [address] 98909- 4947 Jun, [place] [id number] [place] [address] 08309- 8668 Jun, Fatigue, unspecified type R53.83 ; History of renal cell carcinoma Z85.528 ; Chronic pancreatitis K86.1 ; Restless leg syndrome G25.81 ; Dark urine R82.99 and BMI 45.0-49.9, adult Z68.42 [place] [id number] [place] [address] 17205- 5439 Jun, [place] [id number] [place] [address] 17304- 3089 Jun, [place] [id number] [place] [address] 32022- 6821 Jun, [place] [id number] [place] [address] 22029- 9015 Jun, [place] [id number] [place] [address] 56714- 1898 May, Chronic post-traumatic stress disorder (PTSD) F43.12 ; Moderate episode of recurrent major depressive disorder F33.1 ; Trichotillomania F63.3 and Generalized social phobia F40.11 [place] [id number] [address]- 9684 May, [place] [id number] [place] [address] 71988- 4003 May, Chronic post-traumatic stress disorder (PTSD) F43.12 ; Moderate episode of recurrent major depressive disorder F33.1 ; Trichotillomania F63.3 and Generalized social phobia F40.11 [place] [id number] [place] [address] 30223- 3940 May, Hyperlipidemia, mixed E78.2 ; Morbid (severe) obesity due to excess calories E66.01 ; Chronic post-traumatic stress disorder (PTSD) F43.12 ; Moderate episode of recurrent major depressive disorder F33.1 ; Trichotillomania F63.3 and Generalized social phobia F40.11 [place] [id number] [place] [address] 08937- 8808 Apr, [place] [id number] [place] [address] 95488- 3906 Apr, Hyperlipidemia, mixed E78.2 ; Morbid (severe) obesity due to excess calories E66.01 ; Chronic post-traumatic stress disorder (PTSD) F43.12 ; Moderate episode of recurrent major depressive disorder F33.1 ; Trichotillomania F63.3 and Generalized social phobia F40.11 [place] [address], [place] [address]- 2356 Apr, Trichotillomania F63.3 ; Generalized social phobia F40.11 ; Chronic post-traumatic stress disorder (PTSD) F43.12 and Moderate episode of recurrent major depressive disorder F33.1 [place] [id number] [place] [address] 06918- 8956 Apr, [place] [id number] [place] [address] 44640- 9708 Apr, [place] [address], [place] [address]- 2353 Mar, Moderate episode of recurrent major depressive disorder F33.1 ; Trichotillomania F63.3 ; Chronic post-traumatic stress disorder (PTSD) F43.12 ; Generalized social phobia F40.11 and Restless leg syndrome G25.81 [facility] [place] [id number] [place] [address] 84854- 9176 Mar, [facility] [place] [id number] [place] [address] 28626- 1612 Mar, [facility] [place] [id number] [place] [address] 58193- 3792 Feb, Left kidney mass N28.89 [place] [id number] [place] [address] 22829- 2087 Jan, [place] [id number] [place] [address] 16802- 2142 Dec, Polydipsia R63.1 ; Chronic pancreatitis K86.1 and Fatigue, unspecified type R53.83 [facility] [place] [id number] [place] [address] 66865- 0482 Nov, [place] [id number] [place] [address] 17277- 5149 Nov, [place] [id number] [place] [address] 77939- 6070 Nov, Headache around the eyes R51 [place] [id number] [place] [address] 51459- 8192 Nov, [facility] [place] [id number] [place] [address] 07200- 5712 October, STD exposure Z20.2 [place] [id number] [place] [address] 59314- 2255 October, STD exposure Z20.2 [facility] [place] [id number] [place] [address] 12371- 0857 October, Chronic post-traumatic stress disorder (PTSD) F43.12 ; Generalized social phobia F40.11 ; Trichotillomania F63.3 and Restless leg syndrome G25.81 [place] [id number] [place] [address] 69108- 6070 October, [place] [id number] [place] [address] 20752- 0471 Sep, [place] [address] 22748- 7345 Aug, [place] [address] 73540- 1244 Aug, [place] [address] 17982- 1873 Aug, Neck mass R22.1 [place] [id number] [place] [address] 05306- 3440 Aug, Atelectasis J98.11 [place] [id number] [place] [address] 02201- 4783 28 Jul, 2016 Hyperlipidemia, mixed E78.2 ; Atypical pneumonia J18.9 and Neck mass R22.1 [place] [id number] [place] [address] 91968- 0111 15 Jul, 2016 Hemoptysis R04.2 [place] [id number] [place] [address] 03781- 8698 08 Jul, 2016 Acute non-recurrent pansinusitis J01.40 ; Hemoptysis R04.2 ; Polydipsia R63.1 and Malaise R53.81 [facility] [address] [place] [id number] [place] [address] 09631 -9758 May, Other viral agents as the cause of diseases classified elsewhere B97.89 and Acute upper respiratory infection, unspecified J06.9 [facility] [address] [place] [address] 59943 -0700 Mar, Nausea R11.0 [facility] [address] [address] -9100 28 Dec, 2015 Hives L50.9 [place] [id number] [place] [address] 71758- 9482 14 Dec, 2015 [facility] [place] [address] [place] [address] 38001 -3870 10 Dec, 2015 Cutaneous abscess of limb, unspecified L02.419 ; Cellulitis of unspecified part of limb L03.119 ; Encounter for incision and drainage procedure Z01.89 and Encounter for recheck of abscess following incision and drainage Z09 [facility] IN [place] [id number] [place] [address] 88570 -1037 09 Dec, 2015 Abscess of leg, right L02.415 [place] [id number] [place] [address] 75097- 0307 08 Dec, 2015 Cellulitis of unspecified part of limb L03.119 and Cutaneous abscess of limb, unspecified L02.419 [place] [address] [place] [address] 01278- 4825 Dec, [place] [id number] [place] [address] 15644- 2258 Dec, [facility] [place] [address], [place] [address] -2083 Aug, [place] [id number] [place] [address] 27535- 6790 Aug, [facility] [place] [address] [place] [address] 09955 -3450 Jul, Pain in unspecified wrist M25.539 and Back pain, thoracic M54.6 [facility] [place] [id number] [place] [address] 38107 -2891 Jun, Strain of right wrist, initial encounter S66.911A [place] [address] [place] [address] 53955- 3147 Jun, Chronic pancreatitis, unspecified pancreatitis type K86.1 ; Hirsuties L68.0 ; Morbid (severe) obesity due to excess calories E66.01 ; Chronic pancreatitis K86.1 and Asthma J45.909 [facility] [place] [id number] [place] [address] 97653- 2742 May, [facility] [place] [address] 29712- 8852 May, Hyperlipidemia, mixed E78.2 and Muscle spasm of back M62.830 [facility] [place] [address] 17353- 5202 Apr, [facility] [place] [address] 16719- 5141 Apr, Torticollis M43.6 [facility] [place] [address] 50814- 9073 Apr, Right-sided thoracic back pain M54.6 [facility] [place] [id number] [place] [address] 15052- 1971 Mar, Rash R21 [facility] [place] [address] 65970- 0124 Mar, [facility] [place] [id number] [place] [address] 08178- 8533 Jan, [facility] [place] [id number] [place] [address] 24624- 0452 Dec, [facility] [place] [address] 45555- 3752 Dec, Urinary frequency 788.41 and Nocturia more than twice per night 788.43 [facility] [place] [address] 43738- 8228 Nov, [facility] [place] [id number] [place] [address] 69931- 7416 Nov, [facility] [place] [address] [place] [address]- 1168 Nov, Abdominal pain 789.00 [facility] [place] [id number] [place] [address] 72530- 0222 October, TDAP DX V06.1 [facility] [place] [id number] [place] [address] 97423- 3100 October, [facility] [place] [id number] [place] [address] 711385- 3500 October, Disturbance of skin sensation 782.0 ; Wrist pain, right 719.43 ; Hyperlipidemia 272.4 and Skin lesion of face 709.9 [facility] [place] [id number] [place] [address] 78340- 4729 Sep, [facility] [place] [id number] [place] [address] 54842- 6956 Sep, [facility] [place] [id number] [place] [address] 17376- 6899 Aug, [facility] [place] [id number] [place] [address] 96453- 8030 Aug, [facility] [place] [id number] [place] [address] 30747- 5738 Aug, [facility] [place] [id number] [place] [address] 21372- 0513 23 Aug, 2014 [facility] [place] [id number] [place] [address] 31446- 5733 16 Aug, 2014 [facility] [place] [id number] [place] [address] 70469- 9426 16 Aug, 2014 [facility] [place] [id number] [place] [address] 11965- 2157 14 Aug, 2014 [facility] [place] [address], [place] [address]- 0252 14 Aug, 2014 [facility] [place] [id number] [place] [address] 26600- 5960 Aug, [facility] [place] [facility] [address] [id number] [place] [address]- 6371 Aug, [facility] [place] [facility] [address] [id number] [place] [address]- 5751 Aug, [facility] [place] [facility] [address] [facility] [id number] [place] [address] Aug, [facility] [place] [facility] [address] [id number] [place] [address] Aug, [facility] [place] [facility] [address] [id number] [place] [address] Aug, [facility] [place] [facility] [address] [id number] [place] [address] Jul, [facility] [place] [facility] [address] [id number] [place] [address] Jul, [facility] [place] [facility] [address] [id number] [place] [address] Jul, [facility] [place] [facility] [address] [id number] [place] [address] Jul, [facility] [place] [facility] [address] [facility] [id number] [place] [address] Jul, [facility] [place] [facility] [address] [facility] [id number], [place] [address] Jul, [facility] [place] [facility] [address] [id number], [place] [address] Jun, [facility] [place] [facility] [address] [id number] [place] [address] Jun, [facility] [place] [facility] [address] [facility] [id number], [place] [address] Jun, [facility] [place] [facility] [address] [facility] [id number] [place] [address] Jun, [facility] [place] [facility] [address] [id number] [place] [address] 19 Jun, 2014 [facility] [place] [facility] [address] [id number] [place] [address] 19 Jun, 2014 [facility] [place] [facility] [address] [id number] [place] [address] 15 Jun, 2014 [facility] [place] [facility] [address] [id number] [place] [address] 15 Jun, 2014 [facility] [place] [facility] [address] [id number] [place] [address] May, [facility] [place] [facility] [address] [id number] [place] [address] May, [facility] [place] [facility] [address] [id number] [place] [address] May, [facility] [place] [facility] [address] [id number] [place] [address] May, [facility] [place] [facility] [address] [id number] [place] [address] May, [facility] [place] [facility] [address] [id number] [place] [address] May, [facility] [place] [facility] [address] [id number] [place] [address] May, [facility] [place] [facility] [address] [id number] [place] [address] May, [facility] [place] [facility] [address] [id number] [place] [address] May, [facility] [place] [facility] [address] [id number] [place] [address] May, [facility] [place] [facility] [address] [id number] [place] [address] May, [facility] [place] [facility] [address] [id number] [place] [address] May, [facility] [place] [facility] [address] [id number] [place] [address] Apr, [facility] [place] [facility] [address] [id number] [place] [address] Apr, [facility] [place] [facility] [address] [id number] [place] [address] Apr, [facility] [place] [facility] [address] [id number] [place] [address] Apr, [facility] [place] [facility] [address] [id number] [place] [address] Apr, [facility] [place] [facility] [address] [id number] [place] [address] Apr, [facility] [place] [facility] [address] [id number] [place] [address] Apr, [facility] [place] [facility] [address] [id number], [place] [address] Apr, [facility] [place] [facility] [address] [id number] [place] [address] Apr, [facility] [place] [facility] [address] [id number] [place] [address] 3911 Apr, [facility] [place] [facility] [address] [id number], [place] [address] Apr, [facility] [place] [facility] [address] [id number], [place] [address] Apr, [facility] [place] [facility] [address] [id number] [place] [address] 4757 Mar, [facility] [place] [facility] [address] [id number], [place] [address] 150[address] Mar, [facility] [place] [facility] [address] [id number], [place] [address] Mar, [facility] [place] [facility] [address] [id number] [place] [address] 9416 02 Mar, 2014 [facility] [place] [facility] [address] [id number] [place] [address] 2825 10 Feb, 2013 [facility] [place] [facility] [address] [id number] [place] [address]- 1736 Feb, 2013 [facility] [place] [facility] [address] [id number] [place] [address]- 5665 05 Feb, 2013 [facility] [place] [facility] [address] [id number] [place] [address] 2547 05 Feb, 2013 [facility] [place] [facility] [address] [id number] [place] [address] 05 Feb, 2013 [facility] [place] [facility] [address] [id number] [place] [address]- 6341 Feb, 2013 [facility] [place] [facility] [address] [id number] [place] [address] 9918 Jan, [facility] [place] [facility] [address] [id number] [place] [address] 3723 Jan, [facility] [place] [facility] [address] [id number] [place] [address]- 4332 Jan, [facility] [place] [facility] [address] [id number] [place] [address] 8150 Jan, [facility] [place] [facility] [address] [id number] [place] [address]- 1509 Jan, [facility] [place] [facility] [address] [id number] [place] [address]- 8341 Jan, [facility] [place] [facility] [address] [id number] [place] [address]- 9728 Jan, [facility] [place] [facility] [address] [id number] [place] [address]- 4330 Jan, [facility] [place] [facility] [address] [id number] [place] [address]- 0384 Jan, [facility] [place] [facility] [address] [id number] [place] [address]- 3611 Jan, [facility] [place] [facility] [address] [id number] [place] [address]- 3472 Jan, [facility] [place] [facility] [address] [id number] [place] [address]- 8426 Jan, [facility] [place] [facility] [address] [id number] [place] [address]- 8956 Jan, [facility] [place] [facility] [address] [id number] [place] [address]- 5514 Jan, [facility] [place] [facility] [address] [id number] [place] [address]- 6027 Dec, [facility] [place] [facility] [address] [id number] [place] [address]- 6836 Dec, [facility] [place] [facility] [address] [id number] [place] [address]- 1289 Dec, [facility] [place] [facility] [address] [id number] [place] [address]- 6094 Dec, [facility] [place] [facility] [address] [id number] [place] [address]- 9484 Nov, [facility] [place] [facility] [address] [id number] [place] [address]- 8713 Nov, [facility] [place] [facility] [address] [id number] [place] [address]- 8180 Nov, [facility] [place] [facility] [address] [id number] [place] [address]- 8936 Nov, [facility] [place] [facility] [address] [id number] [place] [address]- 1838 Nov, [facility] [place] [facility] [address] [id number] [place] [address]- 7195 October, [facility] [place] [facility] [address] [id number] [place] [address]- 5196 October, [facility] [place] [facility] [address] [id number] [place] [address]- 9344 October, [facility] [place] [facility] [address] [id number] [place] [address] October, [facility] [place] [facility] [address] [id number] [place] [address]- 4833 October, [facility] [place] [facility] [address] [id number] [place] [address]- 9720 October, [facility] [place] [facility] [address] [id number] [place] [address]- 0381 October, [facility] [place] [facility] [address] [id number] [place] [address]- 5459 October, [facility] [place] [facility] [address] [id number] [place] [address]- 2124 October, [facility] [place] [facility] [address] [id number] [place] [address]- 8612 October, [facility] [place] [facility] [address] [id number] [place] [address]- 0042 October, [facility] [place] [facility] [address] [id number] [place] [address]- 1205 October, [facility] [place] [facility] [address] [id number] [place] [address]- 3351 October, [facility] [place] [facility] [address] [id number] [place] [address]- 6411 October, [facility] [place] [facility] [address] [id number] [place] [address]- 5862 Sep, [facility] [place] [facility] [address] [id number] [place] [address]- 9205 Sep, [facility] [place] [facility] [address] [id number] [place] [address]- 9904 Sep, [facility] [place] [facility] [address] [id number] [place] [address]- 9452 14 Sep, 2013 [facility] [address] [id number] [place] [address]- 8025 10 Sep, 2013 [facility] [place] [facility] [address] [id number] [place] [address]- 4359 Sep, [facility] [address] [id number] [place] [address]- 0448 Sep, [facility] [place] [facility] [address] [id number] [place] [address]- 3102 Sep, [facility] [address] [id number] [place] [address]- 7926 Sep, [facility] [address] [id number] [place] [address]- 8244 Sep, [facility] [place] [facility] [address] [id number] [place] [address]- 1793 Sep, [facility] [address] [id number] [place] [address]- 6492 Sep, [facility] [place] [facility] [address] [id number] [place] [address]- 1824 Sep, [facility] [address] [id number] [place] [address]- 0997 Sep, [facility] [place] [facility] [address] [id number] [place] [address]- 9363 Sep, [facility] [place] [facility] [address] [id number] [place] [address]- 3966 Aug, [facility] [place] [facility] [address] [id number] [place] [address]- 1427 Aug, [facility] [place] [facility] [address] [id number] [place] [address]- 4446 Aug, [facility] [place] [facility] [address] [id number] [place] [address]- 2770 Aug, [facility] [place] [facility] [address] [id number] [place] [address]- 7552 10 Jul, 2013 [facility] [place] [facility] [address] [id number] [place] [address]- 8165 Jul, [facility] [place] [facility] [address] [id number] [place] [address]- 9592 Jul, [facility] [place] [facility] [address] [id number] [place] [address]- 9691 Jul, [facility] [place] [facility] [address] [id number] [place] [address]- 2186 Jun, [facility] [place] [facility] [address] [id number] [place] [address]- 4230 Jun, [facility] [place] [facility] [address] [id number] [place] [address]- 2153 Jun, [facility] [place] [facility] [address] [id number] [place] [address]- 9247 Jun, [facility] [place] [facility] [address] [id number] [place] [address]- 3054 Jun, [facility] [place] [facility] [address] [id number] [place] [address]- 1453 Jun, [facility] [place] [facility] [address] [id number] [place] [address]- 3851 Jun, [facility] [place] [facility] [address] [id number], [place] [address]- 7279 Jun, [facility] [place] [facility] [address] [id number] [place] [address]- 2357 May, [facility] [place] [facility] [address] [id number] [place] [address]- 8762 May, [facility] [place] [facility] [address] [id number] [place] [address]- 5190 May, [facility] [place] [facility] [address] [id number] [place] [address]- 6427 18 May, 2012 [facility] [address] [id number] [place] [address]- 1986 17 May, 2013 [facility] [address] [id number] [place] [id number] 17 May, 2013 [facility] [address] [id number] [place] 17 May, 2013 [facility] [address] [id number] [place] [address]057 17 May, 2013 [facility] [address] [id number] [place]91 16 May, 2013 [facility] [address] [id number] [place] [address]- 7723 16 May, 2013 [facility] [address] [id number] [place] [address]- 3888 14 May, 2013 [facility] [address] [id number] [place] [address]- 0181 14 May, 2013 [facility] [address] [id number] [place] [address]- 1898 13 May, 2013 [facility] [address] [id number] [place] [address]- 0792 13 May, 2013 [facility] [address] [id number] [place] [address]- 4654 12 May, 2013 [facility] [address] [id number] [place] [address]- 1992 12 May, 2013 [facility] [address] [id number] [place] 2486 11 May, 2013 [facility] [address] [id number] [place] 2449 11 May, 2013 [facility] [address] [id number] [place] [address]- 8698 26 Apr, 2013 [facility] [address] [id number] [place] [address]- 0790 Apr, [facility] [address] [id number] [place] [address]- 9503 Apr, [facility] [address] [id number] [place] [address]- 7677 Apr, [facility] [address] [id number] [place] [address]- 7276 Aug, [facility] [address] [id number] [place] [address]- 1387 Aug, [facility] [address] [id number] [place] [address]- 0910 Aug, [facility] [address] [id number] [place] [address]- 1267 Aug, [facility] [address] [id number] [place] [address]- 4228 Jul, [facility] [address] [id number] [place] [address]- 9674 Jun, [facility] [address] [id number] [place] [address]- 2454 Jun, [facility] [address] [id number] [place] [address]- 8514 Jun, [facility] [address] [id number] [place] [address]- 6652 Jun, [facility] [address] [id number] [place] [address]- 1169 May, [facility] [place] [facility] [address] [id number] [place] [address]- 4970 May, [facility] [place] [facility] [address] [id number] [place] [address]- 3829 May, [facility] [address] [id number], [place] [address]- 0552 May, [facility] [place] [facility] [address] [id number] [place] [address]- 1176 May, [facility] [place] [facility] [address] [id number], [place] [address]- 5378 May, [facility] [place] [facility] [address] [facility] [id number], [place]207- 2680 May, [facility] [place] [facility] [address] [id number], [place] [address]- 0082 Apr, [facility] [place] [facility] [address] [id number] [place] [address]- 5711 Apr, [facility] [place] [facility] [address] [id number], [place] [address]- 1240 Apr, [facility] [place] [facility] [address] [id number], [place] [address]- 4179 Apr, [facility] [place] [facility] [address] [id number], [place] [address]- 1918 Apr, [facility] [place] [facility] [address] [id number], [place] [address]- 0093 Apr, [facility] [place] [facility] [address] [id number], [place] [address]- 5667 Apr, [facility] [place] [facility] [address] [id number], [place] [address]- 7018 Mar, [facility] [place] [facility] [address] [id number], [place] [address]- 4927 Mar, [facility] [place] [facility] [address] [id number], [place] [address]- 5977 Mar, [facility] [place] [facility] [address] [facility] [id number], [place] [address]- 0161 Mar, [facility] [place] [facility] [address] [facility] [id number], [place] [address]- 3988 Mar, [facility] [place] [facility] [address] [id number] [place] [address]- 6283 Mar, [facility] [address] [id number] [place] [address]- 7313 Mar, [facility] [place] [facility] [address] [id number] [place] [address]- 6476 Mar, [facility] [address] [id number] [place] [address]- 8533 Mar, [facility] [place] [facility] [address] [id number] [place] [address]- 6640 Mar, [facility] [address] [id number] [place] [address]- 4535 Mar, [facility] [place] [facility] [address] [id number] [place] [address]- 8233 Mar, [facility] [place] [facility] [address] [id number] [place] [address]- 0043 Feb, [facility] [place] [facility] [address] [id number] [place] [address]- 5675 Jan, [facility] [place] [facility] [address] [id number] [place] [address]- 5986 Jan, [facility] [place] [facility] [address] [id number] [place] [address]- 0975 Jan, [facility] [place] [facility] [address] [id number] [place] [address]- 4899 Jan, [facility] [place] [facility] [address] [id number] [place] [address]- 4010 Jan, [facility] [place] [facility] [address] [id number] [place] [address]- 2005 Dec, [facility] [place] [facility] [address] [id number] [place] [address]- 2546 Dec, [facility] [place] [facility] [address] [id number] [place] [address]- 8097 Nov, [facility] [address] [id number] [place] [address]- 4844 Nov, [facility] [place] [facility] [address] [id number] [place] [address]- 5895 Nov, [facility] [place] [facility] [address] [id number] [place] [address]- 0088 October, [facility] [place] [facility] [address] [id number] [place] [address]- 0487 October, [facility] [address] [id number] [place] [address]- 9198 October, [facility] [place] [facility] [address] [id number] [place] [address]- 4019 October, [facility] [place] [facility] [address] [id number] [place] [address]- 5427 October, [facility] [place] [facility] [address] [id number] [place] [address]- 2242 October, [facility] [place] [facility] [address] [id number] [place] [address]- 4673 October, [facility] [place] [facility] [address] [id number] [place] [address]- 3330 Sep, [facility] [place] [facility] [address] [id number] [place] [address]- 0387 Sep, [facility] [place] [facility] [address] [id number], [place] [address]- 0566 Sep, [facility] [place] [facility] [address] [id number] [place] [address]- 2290 Sep, [facility] [place] [facility] [address] [id number] [place] [address]- 4114 Sep, [facility] [place] [facility] [address] [id number] [place] [address]- 3990 Sep, [facility] [place] [facility] [address] [id number] [place] [address]- 2590 17 Sep, 2011 [facility] [address] [id number] [place] [address]- 4309 16 Sep, 2011 [facility] [place] [facility] [address] [id number] [place] [address]- 6586 16 Sep, 2011 [facility] [place] [facility] [address] [id number] [place] [address]- 9336 14 Sep, 2011 [facility] [place] [facility] [address] [id number] [place] [address]- 7521 13 Sep, 2011 [facility] [place] [facility] [address] [id number] [place] [address]- 8016 10 Sep, 2011 [facility] [place] [facility] [address] [id number] [place] [address]- 1806 09 Sep, 2011 [facility] [address] [id number] [place] [address]- 0648 27 Aug, 2011 [facility] [place] [facility] [address] [id number] [place] [address]- 5749 12 Aug, 2011 [facility] [place] [facility] [address] [id number] [place] [address]- 5912 08 Aug, 2011 [facility] [place] [facility] [address] [facility] [id number] [place] [address]- 1135 06 Aug, 2011 [facility] [place] [facility] [address] [id number] [place] [address]- 7289 28 Jul, 2011 [facility] [place] [facility] [address] [id number] [place] [address]- 5405 22 Jul, 2011 [facility] [place] [facility] [address] [id number] [place] [address]- 2246 16 Jul, 2011 [facility] [place] [facility] [address] [id number] [place] [address]- 5882 15 Jul, 2011 [facility] [place] [facility] [address] [id number] [place] [address]- 5402 14 Jul, 2011 [facility] [place] [facility] [address] [id number] [place] [address]- 1202 Jul, [facility] [address] [id number] [place] [address]- 9631 Jun, [facility] [address] [id number] [place] [address] Jun, [facility] [address] [id number] [place] [address] Jun, [facility] [address] [id number] [place] [address] Jun, [facility] [address] [id number] [place] [address] Jun, [facility] [address] [id number] [place] [address] May, [facility] [address] [id number] [place] [address] May, [facility] [address] [id number] [place] [address] May, [facility] [address] [id number] [place] [address] May, [facility] [address] [id number] [place] [address] May, [facility] [address] [id number] [place] [address] May, [facility] [place] [facility] [address] [id number] [place] [address] 05 May, 2011 [facility] [place] [facility] [address] [id number] [place] [address] 15 Apr, 2011 [facility] [place] [facility] [address] [id number] [place] [address] 15 Apr, 2011 [facility] [address] [id number] [place] [address] Apr, [facility] [place] [facility] [address] [id number] [place] [address] Apr, [facility] [place] [facility] [address] [id number] [place] [address] Apr, [facility] [place] [facility] [address] [id number] [place] [address] Apr, [facility] [place] [facility] [address] [id number] [place] [address] Mar, [facility] [place] [facility] [address] [id number] [place] [address] Mar, [facility] [place] [facility] [address] [id number] [place] [address] Mar, [facility] [place] [facility] [address] [id number] [place] [address] Mar, [facility] [place] [facility] [address] [id number] [place] [address] Jan, [facility] [place] [facility] [address] [id number] [place] [address] Dec, [facility] [place] [facility] [address] [id number] [place] [address] Dec, [facility] [place] [facility] [address] [id number] [place] [address] October, [facility] [place] [facility] [address] [id number] [place] [address] Sep, [facility] [place] [facility] [address] [id number] [place] [address] 14 Sep, 2010 [facility] [place] [facility] [address] [id number] [place] [address] Jul, [facility] [place] [facility] [address] [id number] [place] [address] 16 Jul, 2010 [facility] [place] [facility] [address] [id number] [place] [address] 31 May, 2010 [facility] [place] [facility] [address] [id number] [place] [address] 27 May, 2010 [facility] [place] [facility] [address] [id number] [place] [address] 2546 08 May, 2010 [facility] [place] [facility] [address] [id number] [place] [address] 06 May, 2010 [facility] [place] [facility] [address] [id number] [place] [address] 116[address] Apr, [facility] [place] [facility] [address] [id number] [place] [address] Apr, [facility] [place] [facility] [address] [id number] [place] [address] Apr, [facility] [place] [facility] [address] [id number] [place] [address] Apr, [facility] [place] [facility] [address] [id number] [place] [address] Apr, [facility] [place] [facility] [address] [id number] [place] [address] 21 Mar, 2010 [facility] [place] [facility] [address] [id number] [place] [address] 14 Mar, 2010 [facility] [place] [facility] [address] [id number] [place] [address] 13 Mar, 2010 [facility] [place] [facility] [address] [id number] [place] [address]- [address] 12 Mar, 2010 [facility] [place] [facility] [address] [id number] [place] [address] Jan, [facility] [place] [facility] [address] [id number] [place] [address]46 15 Dec, 2009 [facility] [place] [facility] [address] [id number] [place] [address] Sep, [facility] [place] [id number] [place] [address] May, [facility] [place] [id number] [place] [address] May, [facility] [place] [id number] [place] [address] May, [facility] [place] [id number] [place] [address] Apr, [facility] [place] [id number] [place] [address] Apr, [facility] [place] [id number] [place] [address]- [address] Apr, [facility] [place] [id number] [place] [address]- [address] Apr, [facility] [place] [id number] [place] [address] Apr, [facility] [place] [id number] [place] [address]- [address] Mar, [facility] [place] [id number] [place] [address]- [address] Mar, [facility] [place] [id number], [place] [address] Jul, IMMUNIZATIONS Vaccine Route Administration Date Status KENALOG 40 MG/ML (PER 10 MG) OTH Other/Miscellaneous Mar 19, 2018 Administered SOCIAL HISTORY Never Assessed REASON FOR VISIT Knee Injection, right knee. Consent signed. Patient c/o that her left extremeties have been swollen since she had her PICC line placed in December.-[facility] PLAN OF CARE Activity Details Follow Up prn Reason: VITAL SIGNS Height 62 in 2018-03-19 Weight 262.4 lbs 2018-03-19 Temperature 98.8 degrees Fahrenheit 2018-03-19 Heart Rate 86 bpm 2018-03-19 Respiratory Rate 20 2018-03-19 BMI 47.99 kg/m2 2018-03-19 Blood pressure systolic 138 mmHg 2018-03-19 Blood pressure diastolic 80 mmHg 2018-03-19 MEDICATIONS Medication Instructions Dosage Frequency Start Date End Date Duration Status Prozac 40 mg Orally Once a day for depression 1 capsules Active Estradiol 0.5 MG Orally Once a day 2 tablet by Oral route 1 time per day 24h Apr, Active Ropinirole HCl 4 MG Orally Once a day 1 tablet before bedtime 24h 30 days Active Viokace 50222 UNIT Not-Taking Ondansetron HCl 8 mg 1 tablet by Oral route every 8 hours PRN Jul, Active Vitamin B 12 Active Diflucan 150 MG Orally 1 time 1 tablet Mar, Mar, 1 days Not-Taking Vitamin D 16209 UNIT Orally per day 1 capsule Not-Taking RESULTS No Results PROCEDURES Procedure Date Ordered Result Body Site DRAIN/INJECT, JOINT/BURSA Mar 19, 2018 KENALOG 40 MG/ML (PER 10 MG) Mar 19, 2018 [facility] VISIT ESTABLISHED PATIENT Mar 19, 2018 THER/PROPH/DIAG INJ, SC/IM Mar 19, 2018 INSTRUCTIONS MEDICATIONS ADMINISTERED No Known Medications [...] the January before. 03/2018 Hospitalization History Cellulitis-[facility] 12/20/15 Hospitalization History [facility]- Abd pain 03/07/2017 Hospitalization History [facility]- Abd pain 03/14/2017 Hospitalization History [facility]- No bowel movement, rash 04/13/2017 Hospitalization History [facility]- Abd pain r/t kidney surgery on 04/17/2017 Hospitalization History [facility]- Abd pain r/t kidney surgery on 04/18/2017 Hospitalization History [facility]- Lower abd pain 04/30/2017 Hospitalization History [facility]- Cannot urinate 05/30/2017 Hospitalization History [facility]- Pancreatitis Sx 06/29/2017 Hospitalization History [facility]- Stomach pain 07/22/2017 Hospitalization History [facility]- Left side pain 08/12/2017 Hospitalization History [facility]- Incision site infection 08/30/2017 Hospitalization History [facility]- Post Op Seroma/Hematoma Left Abdomen. Discharged 09/04/17- Dr Daniel 09/02/2017 Hospitalization History [facility]- Right shoulder and back pain 2017 Hospitalization History [facility]- Shoulder/Back pain 11/11/2017 Hospitalization History [facility]- Right shoulder blade pain 12/04/2017 Hospitalization History [facility]- C-Diff 12/13/2017 Hospitalization History C diff et MRSA 12/27/2017
--- OUTSIDE RECORDS SUMMARY | 2018-04-29 10:31 | XMS REPORT ---
Author Author SAI CARMEN Organization [facility] Address [address] [place] [address] Care Team Providers Care Community Fundraiser Name Role Phone SAICORTNEY KOENIGHANY Unavailable PROBLEMS Type Condition ICD9-CM Code MMF98-EM Code Onset Dates Condition Status SNOMED Code Problem Atelectasis J98.11 Active 81038725 Problem Restless leg syndrome G25.81 Active 77030383 Problem Trichotillomania F63.3 Active 86175447 Problem Primary osteoarthritis of right knee M17.11 Active [id number] Problem Intestinal malabsorption, unspecified K90.9 Active 71241748 Problem Chronic post-traumatic stress disorder (PTSD) F43.12 Active 557777799 Problem Generalized social phobia F40.11 Active 40053940 Problem Chronic fatigue R53.82 Active 02321719 Problem Moderate episode of recurrent major depressive disorder F33.1 Active 589704978 Problem Chronic tension-type headache, intractable G44.221 Active 666431386 Problem Morbid (severe) obesity due to excess calories E66.01 Active 037571152 Problem Nodule of left lung R91.1 Active 322558324 Problem History of renal cell carcinoma Z85.528 Active 443552081 Problem FH: polycystic ovary Z84.2 Active 744174368 Problem Chronic pancreatitis K86.1 Active 661428626 Problem Hyperlipidemia, mixed E78.2 Active 435101438 Problem Asthma J45.909 Active 755913599 Problem Hirsuties L68.0 Active 739541534 Problem Polydipsia R63.1 Active 81224727 ALLERGIES No Information ENCOUNTERS Encounter Location Date Diagnosis [facility] [address] [facility] [id number] [address] Mar, Urinary urgency R39.15 [facility] [address] [facility] [id number], [place] [address] Mar, Primary osteoarthritis of right knee M17.11 and BMI 45.0- 49.9, adult Z68.42 [facility] [id number] [place] [address] 78640- 8985 Mar, [facility] [id number] [place] [address] 34812- 7285 Feb, Left upper arm pain M79.622 [facility] [id number] [place] [address] 79287- 7049 Feb, [facility] [id number] [place] [address] 76730- 2393 Jan, Acute pain of right knee M25.561 ; Right upper quadrant abdominal pain R10.11 and BMI 45.0-49.9, adult Z68.42 [facility] [id number] [place] [address] 60381- 5736 Jan, [facility] [id number] [place] [address] 56386- 5172 Jan, [facility] [id number] [place] [address] 97754- 4091 Dec, [facility] [id number] [place] [address] 15703- 6695 Dec, Intestinal malabsorption, unspecified K90.9 and Diarrhea, unspecified R19.7 [facility] [id number] [place] [address] 16695- 7615 Dec, [facility] [id number] [place] [address] 29986- 1846 Dec, Strep throat J02.0 ; Intestinal malabsorption, unspecified K90.9 ; Diarrhea, unspecified R19.7 ; Postoperative seroma involving digestive system after non-digestive system procedure K91.873 ; Hyperlipidemia, mixed E78.2 and BMI 45.0-49.9, adult Z68.42 [facility] [id number] [place] [address] 78323- 1912 Dec, [facility] [address] [facility] [id number], [place] [address] Dec, Nausea R11.0 [facility] [address] [address] 2[address] Dec, [facility] [address] [id number] [address] Dec, Sore throat J02.9 ; Strep throat J02.0 and BMI 45.0-49.9, adult Z68.42 [facility] [address] [facility] [id number] [address]83 Dec, [facility] [address] [id number] [address] 0664 Dec, [facility] [address], [place] [address] 3171 Dec, [facility] [address], [place] [address]- 5457 Dec, [facility] [address] [id number] [address]- 9565 Dec, [facility] [address], [place] [address]- 5716 Dec, [facility] [address] [id number] [address]- 5592 Dec, [facility] [address], [place] [address]- 9389 Dec, [facility] [address] [id number], [place] [address] 7527 Dec, Clostridium difficile colitis A04.72 ; Intractable vomiting with nausea, unspecified vomiting type R11.2 and BMI 45.0-49.9, adult Z68.42 [facility] [address], [place] [address]- 4361 Dec, [facility] [address], [place] [address]- 8098 30 Nov, 2017 [place] [id number] [place] [address] 12663- 7815 Nov, [place] [id number] [place] [address] 97304- 5544 Nov, [place] [id number] [place] [address] 09498- 6696 Nov, [facility] [id number] [place] [address] 45496 -4524 Nov, [place] [id number] [place] [address] 73602- 2120 Nov, Hyperlipidemia, mixed E78.2 [facility] [place] [id number] [place] [address] 17796 -5295 Nov, Acute suppurative otitis media of right ear without spontaneous rupture of tympanic membrane, recurrence not specified H66.001 and BMI 45.0-49.9, adult Z68.42 [place] [id number] [place] [address] 30652- 6970 Nov, Hyperlipidemia, mixed E78.2 [place] [id number] [place] [address] 09358- 3923 Nov, [place] [id number] [place] [address] 71734- 9751 Nov, [place] [id number] [place] [address] 56695- 1553 04 Nov, 2017 Nodule of left lung R91.1 [place] [id number] [place] [address] 87087- 0614 04 Nov, 2017 Medicare annual wellness visit, [...] adult Z68.42 and Encounter for immunization Z23 [place] [id number] [place] [address] 59029- 3224 October, [place] [address] 25371- 6335 October, Nodule of left lung R91.1 [place] [id number] [place] [address] 89159- 2323 October, Nodule of left lung R91.1 [place] [id number] [place] [address] 89266- 0989 October, Recurrent major depressive disorder, in partial remission F33.41 ; Restless leg syndrome G25.81 ; Generalized social phobia F40.11 ; Chronic post-traumatic stress disorder (PTSD) F43.12 ; BMI 45.0-49.9, adult Z68.42 and Trichotillomania F63.3 [place] [address] 15946- 4378 October, [place] [id number] [place] [address] 32260- 8355 Sep, Chronic fatigue R53.82 and BMI 45.0-49.9, adult Z68.42 [place] [id number] [place] [address] 43032- 2207 Aug, [place] [id number] [place] [address] 40516- 9642 Jul, Restless leg syndrome G25.81 and B12 deficiency E53.8 [place] [id number] [place] [address] 95257- 7842 Jul, [place] [address] 86555- 7330 Jul, [place] [address] [address]- 2037 Jun, [place] [id number] [place] [address] 64444356- 1760 Jun, Fatigue, unspecified type R53.83 ; History of renal cell carcinoma Z85.528 ; Chronic pancreatitis K86.1 ; Restless leg syndrome G25.81 ; Dark urine R82.99 and BMI 45.0-49.9, adult Z68.42 [place] [address] [address]- 6551 Jun, [place] [id number] [place] [address] 97901- 0763 Jun, [place] [address] [id number] [address]- 3160 Jun, [place] [id number] [place] [address] 47013- 1487 Jun, [place] [address] [address]- 1921 May, Chronic post-traumatic stress disorder (PTSD) F43.12 ; Moderate episode of recurrent major depressive disorder F33.1 ; Trichotillomania F63.3 and Generalized social phobia F40.11 [place] [address], [place] [address]- 0567 May, [place] [id number] [place] [address] 61644292- 9895 May, Chronic post-traumatic stress disorder (PTSD) F43.12 ; Moderate episode of recurrent major depressive disorder F33.1 ; Trichotillomania F63.3 and Generalized social phobia F40.11 [place] [address] [id number] 5385 May, Hyperlipidemia, mixed E78.2 ; Morbid (severe) obesity due to excess calories E66.01 ; Chronic post-traumatic stress disorder (PTSD) F43.12 ; Moderate episode of recurrent major depressive disorder F33.1 ; Trichotillomania F63.3 and Generalized social phobia F40.11 [facility] [id number] [place] [address] 90933- 4474 30 Apr, 2017 [facility] [id number] [place] [address] 36881- 1599 29 Apr, 2017 Hyperlipidemia, mixed E78.2 ; Morbid (severe) obesity due to excess calories E66.01 ; Chronic post-traumatic stress disorder (PTSD) F43.12 ; Moderate episode of recurrent major depressive disorder F33.1 ; Trichotillomania F63.3 and Generalized social phobia F40.11 [place] [id number] [place] [address] 13412- 1733 Apr, Trichotillomania F63.3 ; Generalized social phobia F40.11 ; Chronic post-traumatic stress disorder (PTSD) F43.12 and Moderate episode of recurrent major depressive disorder F33.1 [place] [id number] [place] [address] 44948- 4854 15 Apr, 2017 [place] [id number] [place] [address] 73183- 4966 Apr, [place] [id number] [place] [address] 00349- 4181 Mar, Moderate episode of recurrent major depressive disorder F33.1 ; Trichotillomania F63.3 ; Chronic post-traumatic stress disorder (PTSD) F43.12 ; Generalized social phobia F40.11 and Restless leg syndrome G25.81 [facility] [address] [address]- 4541 Mar, [place] [id number] [place] [address] 80835- 8640 Mar, [place] [id number] [place] [address] 53143- 3106 Feb, Left kidney mass N28.89 [facility] [address], [place] [address]- 0893 Jan, [facility] [id number] [place] [address] 70366- 3949 Dec, Polydipsia R63.1 ; Chronic pancreatitis K86.1 and Fatigue, unspecified type R53.83 [facility] [id number] [place] [address] 45076- 6543 Nov, [facility] [id number] [place] [address] 31852- 1853 Nov, [facility] [id number] [place] [address] 72449- 9878 Nov, Headache around the eyes R51 [facility] [id number] [place] [address] 21895- 1927 Nov, [facility] [id number] [place] [address] 16087- 9241 October, STD exposure Z20.2 [facility] [id number] [place] [address] 05373- 4591 October, STD exposure Z20.2 [facility] [id number] [place] [address] 06828- 7266 October, Chronic post-traumatic stress disorder (PTSD) F43.12 ; Generalized social phobia F40.11 ; Trichotillomania F63.3 and Restless leg syndrome G25.81 [facility] [address] [id number] [address]- 3255 October, [facility] [id number] [place] [address] 11400- 8183 Sep, [facility] [id number] [place] [address] 967470- 3198 Aug, [facility] [id number] [place] [address] 15003- 6540 Aug, [facility] [id number] [place] [address] 50898- 4211 08 Aug, 2016 Neck mass R22.1 [place] [address] 46739- 4856 03 Aug, 2016 Atelectasis J98.11 [place] [address] 44602- 6584 28 Jul, 2016 Hyperlipidemia, mixed E78.2 ; Atypical pneumonia J18.9 and Neck mass R22.1 [place] [id number] [place] [address] 58421- 9851 15 Jul, 2016 Hemoptysis R04.2 [place] [address] 01540- 6632 08 Jul, 2016 Acute non-recurrent pansinusitis J01.40 ; Hemoptysis R04.2 ; Polydipsia R63.1 and Malaise R53.81 [facility] [id number] [place] [address] 22650 -9760 May, Other viral agents as the cause of diseases classified elsewhere B97.89 and Acute upper respiratory infection, unspecified J06.9 [facility] [place] [id number] [place] [address] 05536 -8961 Mar, Nausea R11.0 [facility] [address] 37972 -4554 Dec, Hives L50.9 [place] [id number] [place] [address] 33893- 5075 14 Dec, 2015 [facility] IN [address] 12384 -2053 10 Dec, 2015 Cutaneous abscess of limb, unspecified L02.419 ; Cellulitis of unspecified part of limb L03.119 ; Encounter for incision and drainage procedure Z01.89 and Encounter for recheck of abscess following incision and drainage Z09 [facility] IN [address] 70050 -2050 Dec, Abscess of leg, right L02.415 [place] [id number] [place] [address] 76996- 1695 Dec, Cellulitis of unspecified part of limb L03.119 and Cutaneous abscess of limb, unspecified L02.419 [place] [id number] [place] [address] 94269- 6729 Dec, [place] [id number] [place] [address] 90275- 7477 Dec, [facility] [place] [id number] [place] [address] 32645 -3301 Aug, [place] [id number] [place] [address] 49931- 4388 Aug, [facility] [place] [id number] [place] [address] 06512 -3687 Jul, Pain in unspecified wrist M25.539 and Back pain, thoracic M54.6 [facility] [place] [id number] [place] [address] 76135 -9196 Jun, Strain of right wrist, initial encounter S66.911A [place] [id number] [place] [address] 22625- 8015 Jun, Chronic pancreatitis, unspecified pancreatitis type K86.1 ; Hirsuties L68.0 ; Morbid (severe) obesity due to excess calories E66.01 ; Chronic pancreatitis K86.1 and Asthma J45.909 [place] [address] [place] [address] 22132- 5626 May, [place] [id number] [place] [address] 48780- 0542 May, Hyperlipidemia, mixed E78.2 and Muscle spasm of back M62.830 [place] [id number] [place] [address] 68198- 6677 Apr, [facility] [id number] [place] [address] 02648- 1987 Apr, Torticollis M43.6 [facility] [id number] [place] [address] 50409- 5498 Apr, Right-sided thoracic back pain M54.6 [facility] [id number] [place] [address] 42405- 9155 Mar, Rash R21 [facility] [id number] [place] [address] 70008- 3653 Mar, [facility] [id number] [place] [address] 46910- 2102 Jan, [facility] [id number] [place] [address] 04276- 7809 Dec, [facility] [id number] [place] [address] 03427- 1485 Dec, Urinary frequency 788.41 and Nocturia more than twice per night 788.43 [facility] [id number] [place] [address] 68597- 8749 Nov, [facility] [id number] [place] [address] 40097- 0464 Nov, [facility] [id number] [place] [address] 55549- 6135 Nov, Abdominal pain 789.00 [facility] [id number] [place] [address] 49535- 5612 October, TDAP DX V06.1 [facility] [id number] [place] [address] 16285- 2895 October, [facility] [id number] [place] [address] 10428597- 3891 October, Disturbance of skin sensation 782.0 ; Wrist pain, right 719.43 ; Hyperlipidemia 272.4 and Skin lesion of face 709.9 [place] [address] [id number] [place] [address]- 7593 14 Sep, 2014 [facility] [place] [facility] [address] [id number] [place] [address]- 7796 13 Sep, 2014 [facility] [place] [facility] [address] [id number] [place] [address]- 9706 26 Aug, 2014 [facility] [place] [facility] [address] [id number] [place] [address]- 0436 26 Aug, 2014 [facility] [place] [facility] [address] [id number] [place] [address]- 0562 23 Aug, 2014 [facility] [place] [facility] [address] [id number] [place] [address]- 2221 23 Aug, 2014 [facility] [place] [facility] [address] [id number] [place] [address]- 8493 16 Aug, 2014 [facility] [place] [facility] [address] [id number] [place] [address]- 4649 16 Aug, 2014 [facility] [place] [facility] [address] [id number] [place] [address]- 3641 14 Aug, 2014 [facility] [place] [facility] [address] [id number] [place] [address]- 6492 14 Aug, 2014 [facility] [place] [facility] [address] [id number] [place] [address]- 7591 11 Aug, 2014 [facility] [place] [facility] [address] [id number] [place] [address]- 0946 11 Aug, 2014 [facility] [place] [facility] [address] [id number] [place] [address]- 4191 04 Aug, 2014 [facility] [place] [facility] [address] [id number] [place] [address]- 3649 04 Aug, 2014 [facility] [place] [facility] [address] [id number] [place] [address]- 7194 03 Aug, 2014 [facility] [place] [facility] [address] [id number] [place] [address]- 8673 Aug, [facility] [place] [facility] [address] [id number] [place] [address]- 8037 Jul, [facility] [place] [facility] [address] [id number] [place] [address]- 8656 Jul, [facility] [place] [facility] [address] [id number] [place] [address]- 6476 Jul, [facility] [place] [facility] [address] [id number] [place] [address]- 7264 Jul, [facility] [place] [facility] [address] [id number] [place] [address]- 2295 Jul, [facility] [place] [facility] [address] [facility] [id number] [place] [address]- 9181 Jul, [facility] [place] [facility] [address] [facility] [id number], [place] [address]- 6086 Jun, [facility] [place] [facility] [address] [id number] [place] [address]- 4587 Jun, [facility] [place] [facility] [address] [facility] [place] [id number] [place] [address]- 6449 Jun, [facility] [place] [facility] [address] [facility] [place] [id number] [place] [address]- 6149 Jun, [facility] [place] [facility] [address] [facility] [id number], [place] [address]- 7367 Jun, [facility] [place] [facility] [address] [id number], [place] [address]- 7694 Jun, [facility] [place] [facility] [address] [id number], [place] [address]- 7796 Jun, [facility] [place] [facility] [address] [facility] [place] [id number], [place] [address]- 3785 Jun, [facility] [place] [facility] [address] [facility] [id number], [place] [address]- 0426 May, [facility] [place] [facility] [address] [id number] [place] [address]- 5811 May, [facility] [place] [facility] [address] [id number] [place] 0696 May, [facility] [place] [facility] [address] [id number] [place] [address]- 8536 May, [facility] [place] [facility] [address] [id number] [place] [address]- 7256 May, [facility] [place] [facility] [address] [id number] [place] 3833 May, [facility] [place] [facility] [address] [id number] [place] 2763 May, [facility] [place] [facility] [address] [id number] [place] [address] May, [facility] [place] [facility] [address] [id number] [place] [address] May, [facility] [place] [facility] [address] [id number] [place] [address] May, [facility] [place] [facility] [address] [id number] [place] [address] May, [facility] [place] [facility] [address] [id number] [place] [address] May, [facility] [place] [facility] [address] [id number] [place] [address] Apr, [facility] [place] [facility] [address] [id number] [place] [address] Apr, [facility] [place] [facility] [address] [id number] [place] [address] Apr, [facility] [place] [facility] [address] [id number] [place] [address] Apr, [facility] [place] [facility] [address] [id number] [place] [address] Apr, [facility] [place] [facility] [address] [id number] [place] [address] Apr, [facility] [place] [facility] [address] [id number] [place] [address] Apr, [facility] [place] [facility] [address] [id number] [place] [address] Apr, [facility] [place] [facility] [address] [id number] [place] [address] Apr, [facility] [place] [facility] [address] [id number] [place] [address] Apr, [facility] [place] [facility] [address] [id number] [place] [address] Apr, [facility] [place] [facility] [address] [id number] [place] [address] Apr, [facility] [place] [facility] [address] [id number] [place] [address] Mar, [facility] [place] [facility] [address] [id number] [place] [address] Mar, [facility] [place] [facility] [address] [id number] [place] [address] Mar, [facility] [place] [facility] [address] [id number], [place] [address] Mar, [facility] [place] [facility] [address] [id number], [place] [address] Feb, [facility] [place] [facility] [address] [id number] [place] [address] 10 Feb, 2014 [facility] [place] [facility] [address] [id number], [place] [address] 05 Feb, 2014 [facility] [place] [facility] [address] [id number], [place] [address] 05 Feb, 2014 [facility] [place] [facility] [address] [id number] [place] [address] 05 Feb, 2013 [facility] [place] [facility] [address] [id number] [place] [address] Feb, 2013 [facility] [place] [facility] [address] [id number] [place] [address] Jan, [facility] [place] [facility] [address] [id number] [place] [address] Jan, [facility] [place] [facility] [address] [id number] [place] [address] Jan, [facility] [place] [facility] [address] [id number] [place] [address] Jan, [facility] [place] [facility] [address] [id number] [place] [address] Jan, [facility] [place] [facility] [address] [id number] [place] [place] [address] Jan, [facility] [place] [facility] [address] [id number] [place] [address] 8[address] Jan, [facility] [place] [facility] [address] [id number] [place] [address] 8696 Jan, [facility] [place] [facility] [address] [id number] [place] [address]- 1446 Jan, [facility] [place] [facility] [address] [id number] [place] [address] 9314 Jan, [facility] [place] [facility] [address] [id number] [place] [address] 6356 Jan, [facility] [place] [facility] [address] [id number] [place] [address] 9031 Jan, [facility] [place] [facility] [address] [id number] [place] [address]- 2338 Jan, [facility] [place] [facility] [address] [id number] [place] [address]- 5678 Jan, [facility] [place] [facility] [address] [id number] [place] [address] 2185 Dec, [facility] [place] [facility] [address] [id number] [place] [address]- 2220 Dec, [facility] [place] [facility] [address] [id number] [place] [address]- 3111 Dec, [facility] [place] [facility] [address] [id number] [place] [address]- 8177 Dec, [facility] [place] [facility] [address] [id number] [place] [address]- 2521 Nov, [facility] [place] [facility] [address] [id number] [place] [address]- 5751 Nov, [facility] [place] [facility] [address] [id number] [place] [address]- 0673 Nov, [facility] [place] [facility] [address] [id number] [place] [address]- 3168 Nov, [facility] [place] [facility] [address] [id number] [place] [address]- 7488 Nov, [facility] [place] [facility] [address] [id number] [place] [address]- 6504 October, [facility] [place] [facility] [address] [id number] [place] [address]- 6777 October, [facility] [place] [facility] [address] [id number] [place] [address]- 5134 October, [facility] [place] [facility] [address] [id number] [place] [address]- 4989 October, [facility] [place] [facility] [address] [id number] [place] [address]- 5704 October, [facility] [place] [facility] [address] [id number] [place] [address]- 8231 October, [facility] [place] [facility] [address] [id number] [place] [address]- 3222 October, [facility] [place] [facility] [address] [id number] [place] [address]- 8318 October, [facility] [place] [facility] [address] [id number] [place] [address]- 2239 October, [facility] [place] [facility] [address] [id number] [place] [address]- 3524 October, [facility] [place] [facility] [address] [id number] [place] [address]- 2801 October, [facility] [place] [facility] [address] [id number] [place] [address]- 9886 October, [facility] [place] [facility] [address] [id number] [place] [address]- 0593 October, [facility] [place] [facility] [address] [id number] [place] [address]- 7240 October, [facility] [place] [facility] [address] [id number] [place] [address]- 4431 Sep, [facility] [place] [facility] [address] [id number] [place] [address]- 6383 Sep, [facility] [place] [facility] [address] [id number] [place] [address]- 0547 Sep, [facility] [place] [facility] [address] [id number] [place] [address]- 0114 Sep, [facility] [place] [facility] [address] [id number] [place] [address]- 5776 Sep, [facility] [place] [facility] [address] [id number] [place] [address]- 4537 Sep, [facility] [place] [facility] [address] [id number] [place] [address]- 9141 Sep, [facility] [place] [facility] [address] [id number] [place] [address]- 4972 Sep, [facility] [place] [facility] [address] [id number] [place] [address]- 8600 Sep, [facility] [place] [facility] [address] [id number] [place] [address]- 2038 Sep, [facility] [place] [facility] [address] [id number] [place] [address]- 2751 Sep, [facility] [place] [facility] [address] [id number] [place] [address]- 8434 Sep, [facility] [place] [facility] [address] [id number] [place] [address]- 5884 Sep, [facility] [place] [facility] [address] [id number] [place] [address]- 7063 Sep, [facility] [place] [facility] [address] [id number] [place] [address]- 8343 Sep, [facility] [place] [facility] [address] [id number] [place] [address]- 6413 Aug, [facility] [place] [facility] [address] [id number] [place] [address]- 6333 Aug, [facility] [place] [facility] [address] [id number] [place] [address]- 9958 Aug, [facility] [place] [facility] [address] [id number] [place] [address]- 5275 Aug, [facility] [place] [facility] [address] [id number] [place] [address]- 3694 Jul, [facility] [place] [facility] [address] [id number] [place] [address]- 1674 Jul, [facility] [place] [facility] [address] [id number] [place] [address]- 1800 Jul, [facility] [place] [facility] [address] [id number] [place] [address]- 0816 Jul, [facility] [place] [facility] [address] [id number] [place] [address]- 0773 15 Jun, 2013 [facility] [address] [id number] [place] [address]- 7197 15 Jun, 2013 [facility] [place] [facility] [address] [id number] [place] [address]- 9156 15 Jun, 2013 [facility] [address] [id number] [place] [address]- 2260 15 Jun, 2013 [facility] [place] [facility] [address] [id number] [place] [address]- 0927 Jun, [facility] [address] [id number] [place] [address]- 2767 Jun, [facility] [address] [id number] [place] [address]- 7679 Jun, [facility] [address] [id number] [place] [address]- 2786 Jun, [facility] [address] [id number] [place] [address]- 6917 May, [facility] [address] [id number] [place] [address]- 1277 May, [facility] [place] [facility] [address] [id number], [place] [address]- 4[address] 18 May, 2013 [facility] [place] [facility] [address] [id number][place] [address]- 9511 18 May, 2013 [facility] [place] [facility] [address] [id number], [place] [address]- 0305 17 May, 2013 [facility] [place] [facility] [address] [id number] [place] [id number] 17 May, 2013 [facility] [place] [facility] [address] [id number], [place] [address]- 2418 17 May, 2013 [facility] [place] [facility] [address] [id number] [place] [address]- 5243 17 May, 2013 [facility] [place] [facility] [address] [id number] [place] [address]- 7398 16 May, 2013 [facility] [address] [id number] [place] [address]- 5267 16 May, 2013 [facility] [address] [id number] [place] [address]- 9020 14 May, 2013 [facility] [address] [id number] [place] [address]- 7036 14 May, 2013 [facility] [place] [facility] [address] [id number] [place] [address]- 2201 13 May, 2013 [facility] [address] [id number] [place] [address]- 2785 13 May, 2013 [facility] [address] [id number] [place] [address]- 9292 12 May, 2013 [facility] [address] [id number] [place] [address]- 6156 12 May, 2013 [facility] [address] [id number] [place] [address]- 4277 11 May, 2013 [facility] [address] [id number] [place] [address]- 3429 11 May, 2013 [facility] [address] [facility] [place] [place] [id number] [place] [address]- 0100 26 Apr, 2013 [facility] [address] [id number] [place] [address]- 3771 26 Apr, 2013 [facility] [place] [facility] [address] [id number] [place] [address]- 2805 Apr, [facility] [place] [facility] [address] [id number] [place] [address]- 2487 Apr, [facility] [place] [facility] [address] [id number] [place] [address]- 8852 27 Aug, 2012 [facility] [place] [facility] [address] [facility] [place] [place] [id number] [place] [address]- 3811 18 Aug, 2012 [facility] [place] [facility] [address] [id number] [place] [address]- 8888 Aug, [facility] [address] [id number] [place] [address]- 7700 Aug, [facility] [place] [facility] [address] [id number] [place] [address]- 4846 Jul, [facility] [place] [facility] [address] [id number] [place] [address]- 6993 Jun, [facility] [address] [id number] [place] [address]- 6017 Jun, [facility] [place] [facility] [address] [id number] [place] [address]- 0155 Jun, [facility] [address] [id number] [place] [address]- 1994 Jun, [facility] [address] [id number] [place] [address]- 2025 May, [facility] [address] [id number] [place] [address]- 0020 May, [facility] [address] [id number] [place] [address]- 0966 May, [facility] [place] [facility] [address] [id number] [place] [address]- 3569 May, [facility] [place] [facility] [address] [id number] [place] [address]- 2790 May, [facility] [place] [facility] [address] [id number] [place] [address]- 2428 May, [facility] [place] [facility] [address] [id number] [place] [address]- 2536 May, [facility] [place] [facility] [address] [id number] [place] [address]- 8349 Apr, [facility] [place] [facility] [address] [id number], [place] [address]- 7278 Apr, [facility] [place] [facility] [address] [id number] [place] [address]- 4790 Apr, [facility] [place] [facility] [address] [id number], [place] [address]- 6325 Apr, [facility] [place] [facility] [address] [facility] [place] [id number], [place] [address]- 9210 Apr, [facility] [place] [facility] [address] [id number], [place] [address]- 1889 Apr, [facility] [place] [facility] [address] [id number] [place] [address]- 0170 Apr, [facility] [place] [facility] [address] [id number], [place] [address]- 5141 Mar, [facility] [place] [facility] [address] [id number], [place] [address]- 6637 Mar, [facility] [place] [facility] [address] [id number], [place] [address]- 0876 Mar, [facility] [place] [facility] [address] [id number], [place] [address]- 3802 Mar, [facility] [place] [facility] [address] [id number][place] [address]- 3208 Mar, [facility] [place] [facility] [address] [id number], [place] [address]- 3190 19 Mar, 2012 [facility] [place] [facility] [address] [id number], [place] [address]- 4001 17 Mar, 2012 [facility] [place] [facility] [address] [id number], [place] [address]- 4802 17 Mar, 2012 [facility] [place] [facility] [address] [facility] [id number], [place] [address]- 3341 15 Mar, 2012 [facility] [place] [facility] [address] [facility] [place] [place] [id number][place] [address]- 7526 15 Mar, 2012 [facility] [place] [facility] [address] [id number] [place] [address]- 9003 Mar, [facility] [address] [id number] [place] [address]- 1301 Mar, [facility] [place] [facility] [address] [id number] [place] [address] 2546 Feb, [facility] [address] [id number] [place] [address]- 9858 Jan, [facility] [place] [facility] [address] [id number] [place] [address]- 7420 Jan, [facility] [address] [id number] [place] [address]- 5255 Jan, [facility] [address] [id number] [place] [address]- 0015 Jan, [facility] [address] [id number] [place] [address]- 6404 Jan, [facility] [address] [id number] [place] [address]- 1509 Dec, [facility] [place] [facility] [address] [id number] [place] [address]- 2470 Dec, [facility] [address] [id number] [place] [address]- 0462 Nov, [facility] [place] [facility] [address] [id number] [place] [address]- 4548 Nov, [facility] [place] [facility] [address] [id number] [place] [address]- 6364 Nov, [facility] [place] [facility] [address] [id number] [place] [address]- 2967 October, [facility] [place] [facility] [address] [id number] [place] [address]- 6781 October, [facility] [place] [facility] [address] [id number] [place] [address]- 1756 October, [facility] [address] [id number] [place] [address]- 1496 October, [facility] [place] [facility] [address] [id number] [place] [address]- 6901 October, [facility] [place] [facility] [address] [id number] [place] [address]- 4245 October, [facility] [place] [facility] [address] [id number] [place] [address]- 9208 October, [facility] [address] [id number] [place] [address]- 7672 Sep, [facility] [place] [facility] [address] [id number] [place] [address]- 1631 Sep, [facility] [place] [facility] [address] [id number] [place] [address]- 3895 Sep, [facility] [address] [id number] [place] [address]- 2375 25 Sep, 2011 [facility] [place] [facility] [address] [id number] [place] [address]- 9788 24 Sep, 2011 [facility] [place] [facility] [address] [id number] [place] [address]- 5328 19 Sep, 2011 [facility] [place] [facility] [address] [id number] [place] [address]- 8937 17 Sep, 2011 [facility] [place] [facility] [address] [id number], [place] [address]- 4690 16 Sep, 2011 [facility] [place] [facility] [address] [id number] [place] [address]- 7913 16 Sep, 2011 [facility] [place] [facility] [address] [id number] [place] [address]- 8061 14 Sep, 2011 [facility] [place] [facility] [address] [id number], [place] [address]- 0791 13 Sep, 2011 [facility] [place] [facility] [address] [id number], [place] [address]- 5407 10 Sep, 2011 [facility] [place] [facility] [address] [id number] [place] [address]- 3944 09 Sep, 2011 [facility] [place] [facility] [address] [id number] [place] [address]- 8706 27 Aug, 2011 [facility] [place] [facility] [address] [id number] [place] [address]- 9216 12 Aug, 2011 [facility] [place] [facility] [address] [id number] [place] [address]- 4265 08 Aug, 2011 [facility] [place] [facility] [address] [id number] [place] [address]- 3566 06 Aug, 2011 [facility] [place] [facility] [address] [id number] [place] [address]- 6278 28 Jul, 2011 [facility] [place] [facility] [address] [id number] [place] [address]- 8065 22 Jul, 2011 [facility] [place] [facility] [address] [id number] [place] [address]- 4493 16 Jul, 2011 [facility] [place] [facility] [address] [id number] [place] [address]- 6764 15 Jul, 2011 [facility] [place] [facility] [address] [facility] [place] [id number] [place] [address]- 8912 14 Jul, 2011 [facility] [place] [facility] [address] [id number] [place] [address]- 1327 10 Jul, 2011 [facility] [place] [facility] [address] [id number] [place] [address]- 8359 Jun, [facility] [place] [facility] [address] [id number] [place] [address]- 6565 Jun, [facility] [place] [facility] [address] [facility] [place] [place] [id number] [place] [address]- 5126 Jun, [facility] [place] [facility] [address] [id number] [place] [address]- 7285 Jun, [facility] [place] [facility] [address] [id number] [place] [address]- 3871 Jun, [facility] [place] [facility] [address] [id number] [place] [address]- 1369 May, [facility] [place] [facility] [address] [id number] [place] [address]- 5825 May, [facility] [place] [facility] [address] [id number] [place] [address]- 4573 May, [facility] [address] [id number] [place] [address]- 8005 May, [facility] [place] [facility] [address] [id number] [place] [address]- 9757 May, [facility] [address] [id number] [place] [address]- 3577 May, [facility] [address] [id number] [place] [address]- 6535 May, [facility] [place] [facility] [address] [id number] [place] [address]- 4874 Apr, [facility] [place] [facility] [address] [id number] [place] [address]- 4309 Apr, [facility] [place] [facility] [address] [id number] [place] [address]- 0167 Apr, [facility] [place] [facility] [address] [id number] [place] [address]- 6086 Apr, [facility] [place] [facility] [address] [id number] [place] [address]- 5481 Apr, [facility] [place] [facility] [address] [id number] [place] [address]- 6233 Apr, [facility] [place] [facility] [address] [id number] [place] [address]- 3071 Mar, [facility] [place] [facility] [address] [id number] [place] [address]- 8095 Mar, [facility] [address] [id number] [place] [address]- 3123 Mar, [facility] [place] [facility] [address] [id number] [place] [address]- 0440 Mar, [facility] [place] [facility] [address] [id number] [place] [address]- 9402 Jan, [facility] [place] [facility] [address] [id number] [place] [address]- 0499 Dec, [facility] [place] [facility] [address] [id number] [place] [address]- 1506 Dec, [facility] [place] [facility] [address] [id number] [place] [address] October, [facility] [place] [facility] [address] [id number] [place] [address] Sep, [facility] [place] [facility] [address] [id number] [place] [address] 14 Sep, 2010 [facility] [place] [facility] [address] [id number] [place] [address] 17 Jul, 2010 [facility] [place] [facility] [address] [id number] [place] [address] 16 Jul, 2010 [facility] [place] [facility] [address] [id number] [place] [address] May, [facility] [place] [facility] [address] [id number] [place] [address] May, [facility] [place] [facility] [address] [id number] [place] [address] May, [facility] [place] [facility] [address] [id number] [place] [address] 06 May, 2010 [facility] [place] [facility] [address] [id number] [place] [address] Apr, [facility] [place] [facility] [address] [id number] [place] [address] Apr, [facility] [place] [facility] [address] [id number] [place] [address] Apr, [facility] [place] [facility] [address] [id number] [place] [address] Apr, [facility] [place] [facility] [address] [id number] [place] [address] Apr, [facility] [place] [facility] [address] [id number] [place] [address] Mar, [facility] [place] [facility] [address] [id number] [place] [address] 14 Mar, 2010 [facility] [place] [facility] [address] [id number] [place] [address] 13 Mar, 2010 [facility] [place] [facility] [address] [id number] [place] [address] 12 Mar, 2010 [facility] [place] [facility] [address] [id number] [place] [address] Jan, [facility] [place] [facility] [address] [id number] [place] [address] 15 Dec, 2009 [facility] [place] [facility] [address] [facility] [place] [id number] [place] [address] 10 Sep, 2009 [facility] [place] [facility] [address] [id number] [place] [address] May, [facility] [place] [facility] [address] [id number] [place] [address] May, [facility] [place] [facility] [address] [id number] [place] [address] May, [facility] [place] [facility] [address] [id number] [place] [address] Apr, [facility] [place] [facility] [address] [id number] [place] [address] Apr, [facility] [address] [facility] [id number] [address] Apr, [facility] [id number] [address] Apr, [facility] [address] [id number] [address] Apr, [facility] [id number], [place] [address] Mar, [facility] [id number], [place] [address] Mar, [facility] [id number], [place] [address] Jul, IMMUNIZATIONS No Known Immunizations SOCIAL HISTORY Never Assessed REASON FOR VISIT Medication refill request PLAN OF CARE VITAL SIGNS MEDICATIONS Medication Instructions Dosage Frequency Start Date End Date Duration Status Diflucan 150 MG Orally 1 time 1 tablet Mar, Mar, 1 days Active RESULTS No Results PROCEDURES No [...] surgery the January before. 03/2018 Hospitalization History Cellulitis-[facility] 12/20/15 Hospitalization History ED [place]- Abd pain 03/07/2017 Hospitalization History ED [place]- Abd pain 03/14/2017 Hospitalization History ED [place]- No bowel movement, rash 04/13/2017 Hospitalization History ED [place]- Abd pain r/t kidney surgery on 04/17/2017 Hospitalization History ED [place]- Abd pain r/t kidney surgery on 04/18/2017 Hospitalization History ED [place]- Lower abd pain 04/30/2017 Hospitalization History [facility]- Cannot urinate 05/30/2017 Hospitalization History [facility]- Pancreatitis Sx 06/29/2017 Hospitalization History [facility]- Stomach pain 07/22/2017 Hospitalization History [facility]- Left side pain 08/12/2017 Hospitalization History [facility]- Incision site infection 08/30/2017 Hospitalization History [facility]- Post Op Seroma/Hematoma Left Abdomen. Discharged 09/04/17- Dr Daniel 09/02/2017 Hospitalization History [facility]- Right shoulder and back pain 2017 Hospitalization History [facility]- Shoulder/Back pain 11/11/2017 Hospitalization History [facility]- Right shoulder blade pain 12/04/2017 Hospitalization History [facility]- C-Diff 12/13/2017 Hospitalization History C diff et MRSA 12/27/2017
--- OUTSIDE RECORDS SUMMARY | 2018-04-29 10:32 | XMS REPORT ---
Author Author SAI CARMEN [facility] Address [address] [place] [address] Care Team Providers Care Senior Controls Technician Name Role Phone SAICORTNEY KOENIGHANY Unavailable PROBLEMS Type Condition ICD9-CM Code IGO75-SU Code Onset Dates Condition Status SNOMED Code Problem Atelectasis J98.11 Active 24185194 Problem Restless leg syndrome G25.81 Active 15828047 Problem Trichotillomania F63.3 Active 62600923 Problem Primary osteoarthritis of right knee M17.11 Active [id number] Problem Intestinal malabsorption, unspecified K90.9 Active 78707236 Problem Chronic post-traumatic stress disorder (PTSD) F43.12 Active 953216027 Problem Generalized social phobia F40.11 Active 34353418 Problem Chronic fatigue R53.82 Active 40628489 Problem Moderate episode of recurrent major depressive disorder F33.1 Active 174633196 Problem Chronic tension-type headache, intractable G44.221 Active 630060885 Problem Morbid (severe) obesity due to excess calories E66.01 Active 325622909 Problem Nodule of left lung R91.1 Active 688438798 Problem History of renal cell carcinoma Z85.528 Active 990225549 Problem FH: polycystic ovary Z84.2 Active 573819444 Problem Chronic pancreatitis K86.1 Active 626963338 Problem Hyperlipidemia, mixed E78.2 Active 342505026 Problem Asthma J45.909 Active 817037308 Problem Hirsuties L68.0 Active 214574589 Problem Polydipsia R63.1 Active 60704338 ALLERGIES No Information ENCOUNTERS Encounter Location Date Diagnosis [facility] [address], [place] [address] Mar, Primary osteoarthritis of right knee M17.11 and BMI 45.0- 49.9, adult Z68.42 [facility] [address], [place] [address] Mar, [facility] [address], [place] [address] Feb, Left upper arm pain M79.622 [facility] [id number] [place] [address] 18609- 7940 Feb, [facility] [id number] [place] [address] 79358- 2728 Jan, Acute pain of right knee M25.561 ; Right upper quadrant abdominal pain R10.11 and BMI 45.0-49.9, adult Z68.42 [facility] [id number] [place] [address] 40992- 3659 Jan, [facility] [id number] [place] [address] 97354- 0526 Jan, [facility] [id number] [place] [address] 23244- 5807 Dec, [facility] [id number] [place] [address] 82373- 3214 Dec, Intestinal malabsorption, unspecified K90.9 and Diarrhea, unspecified R19.7 [facility] [address], [place] [address] 68[address] Dec, [facility] [address] [place] [address] 21884- 3895 Dec, Strep throat J02.0 ; Intestinal malabsorption, unspecified K90.9 ; Diarrhea, unspecified R19.7 ; Postoperative seroma involving digestive system after non-digestive system procedure K91.873 ; Hyperlipidemia, mixed E78.2 and BMI 45.0-49.9, adult Z68.42 [facility] [address] [place] [address] 56455- 0937 Dec, [facility] [id number] [place] [address] 58794- 6037 Dec, Nausea R11.0 [facility] [address], [place] [address] Dec, [facility] [address], [place] [address] Dec, Sore throat J02.9 ; Strep throat J02.0 and BMI 45.0-49.9, adult Z68.42 [facility] [address] [place] [address] 41365- 8663 Dec, [facility] [address], [place] [address] 0835 Dec, [facility] [id number] [place] [address] 85920- 9757 Dec, [facility] [id number] [place] [address] 58009- 5838 Dec, [facility] [id number] [place] [address] 44281- 2757 Dec, [facility] [address], [place] [address] 3258 Dec, [facility] [address], [place] [address] 3440 Dec, [facility] [address], [place] [address] 4751 Dec, [facility] [address], [place] [address] 117[address] Dec, Clostridium difficile colitis A04.72 ; Intractable vomiting with nausea, unspecified vomiting type R11.2 and BMI 45.0-49.9, adult Z68.42 [facility] [address], [place] [address] 4588 Dec, [facility] [address], [place] [address]- 6775 Nov, [facility] [address], [place] [address]- 2053 Nov, [place] [address] [place] [address] 76355- 4140 Nov, [place] [id number] [place] [address] 73818- 3029 Nov, [facility] [place] [id number] [place] [address] 12675 -3503 Nov, [place] [id number] [place] [address] 46492- 4305 Nov, Hyperlipidemia, mixed E78.2 [facility] [place] [id number] [place] [address] 57020 -8888 Nov, Acute suppurative otitis media of right ear without spontaneous rupture of tympanic membrane, recurrence not specified H66.001 and BMI 45.0-49.9, adult Z68.42 [place] [id number] [place] [address] 27030- 4875 Nov, Hyperlipidemia, mixed E78.2 [place] [id number] [place] [address] 14301- 8491 Nov, [place] [id number] [place] [address] 34807- 7574 Nov, [place] [id number] [place] [address] 36989- 4168 Nov, Nodule of left lung R91.1 [place] [id number] [place] [address] 24757- 7911 Nov, Medicare annual wellness visit, initial Z00.00 [...] and Encounter for immunization Z23 [place] [id number] [place] [address] 65231- 6732 October, [place] [address] 36724- 4783 October, Nodule of left lung R91.1 [place] [address] 65088- 5076 October, Nodule of left lung R91.1 [place] [address] 63901- 8017 October, Recurrent major depressive disorder, in partial remission F33.41 ; Restless leg syndrome G25.81 ; Generalized social phobia F40.11 ; Chronic post-traumatic stress disorder (PTSD) F43.12 ; BMI 45.0-49.9, adult Z68.42 and Trichotillomania F63.3 [place] [address] 18034- 4669 October, [place] [id number] [place] [address] 96924- 3115 Sep, Chronic fatigue R53.82 and BMI 45.0-49.9, adult Z68.42 [place] [id number] [place] [address] 39677- 4639 Aug, [place] [id number] [place] [address] 44954- 0832 Jul, Restless leg syndrome G25.81 and B12 deficiency E53.8 [place] [address] 61495- 3418 Jul, [place] [address] 03811- 9246 Jul, [place] [id number] [place] [address] 55272- 3096 Jun, [place] [address], [place] [address] 9673 Jun, Fatigue, unspecified type R53.83 ; History of renal cell carcinoma Z85.528 ; Chronic pancreatitis K86.1 ; Restless leg syndrome G25.81 ; Dark urine R82.99 and BMI 45.0-49.9, adult Z68.42 [place] [id number] [place] [address] 89660- 9387 Jun, [place] [id number] [place] [address] 64498- 6200 Jun, [place] [id number] [place] [address] 28713- 6530 Jun, [place] [id number] [place] [address] 74621- 2112 Jun, [place] [id number] [place] [address] 09996- 9634 May, Chronic post-traumatic stress disorder (PTSD) F43.12 ; Moderate episode of recurrent major depressive disorder F33.1 ; Trichotillomania F63.3 and Generalized social phobia F40.11 [place] [address] [place] [address] 21451- 8746 May, [place] [address], [place] [address]- 7788 May, Chronic post-traumatic stress disorder (PTSD) F43.12 ; Moderate episode of recurrent major depressive disorder F33.1 ; Trichotillomania F63.3 and Generalized social phobia F40.11 [place] [address] [place] [address] 51333- 0004 07 May, 2017 Hyperlipidemia, mixed E78.2 ; Morbid (severe) obesity due to excess calories E66.01 ; Chronic post-traumatic stress disorder (PTSD) F43.12 ; Moderate episode of recurrent major depressive disorder F33.1 ; Trichotillomania F63.3 and Generalized social phobia F40.11 [place] [id number] [place] [address] 04679- 6530 Apr, [place] [id number] [place] [address] 58170- 9626 Apr, Hyperlipidemia, mixed E78.2 ; Morbid (severe) obesity due to excess calories E66.01 ; Chronic post-traumatic stress disorder (PTSD) F43.12 ; Moderate episode of recurrent major depressive disorder F33.1 ; Trichotillomania F63.3 and Generalized social phobia F40.11 [place] [id number] [place] [address] 99452- 1287 Apr, Trichotillomania F63.3 ; Generalized social phobia F40.11 ; Chronic post-traumatic stress disorder (PTSD) F43.12 and Moderate episode of recurrent major depressive disorder F33.1 [place] [id number] [place] [address] 47982- 7349 Apr, [place] [id number] [place] [address] 80377- 3775 Apr, [place] [id number] [place] [address] 35636- 5746 Mar, Moderate episode of recurrent major depressive disorder F33.1 ; Trichotillomania F63.3 ; Chronic post-traumatic stress disorder (PTSD) F43.12 ; Generalized social phobia F40.11 and Restless leg syndrome G25.81 [place] [id number] [place] [address] 35939- 7915 Mar, [place] [id number] [place] [address] 06342- 7154 Mar, [place] [id number] [place] [address] 46541- 7581 Feb, Left kidney mass N28.89 [place] [id number] [place] [address] 73529- 9083 Jan, [place] [address] [place] [address]- 7930 Dec, Polydipsia R63.1 ; Chronic pancreatitis K86.1 and Fatigue, unspecified type R53.83 [facility] [address], [place] [address]- 1869 Nov, [facility] [id number] [place] [address] 30821- 9140 Nov, [facility] [id number] [place] [address] 26201- 7620 Nov, Headache around the eyes R51 [facility] [id number] [place] [address] 17402- 6235 Nov, [facility] [id number] [place] [address] 03208- 8828 October, STD exposure Z20.2 [facility] [id number] [place] [address] 92632- 0107 October, STD exposure Z20.2 [facility] [id number] [place] [address] 66008- 9487 October, Chronic post-traumatic stress disorder (PTSD) F43.12 ; Generalized social phobia F40.11 ; Trichotillomania F63.3 and Restless leg syndrome G25.81 [facility] [address], [place] [address]- 1577 October, [facility] [id number] [place] [address] 98136- 3971 Sep, [facility] [address] [place] [address]- 4260 Aug, [facility] [id number] [place] [address] 78502- 9821 Aug, [facility] [address], [place] [address]- 9797 Aug, Neck mass R22.1 [facility] [id number] [place] [address] 44539- 6833 03 Aug, 2016 Atelectasis J98.11 [place] [address] 86733- 1385 28 Jul, 2016 Hyperlipidemia, mixed E78.2 ; Atypical pneumonia J18.9 and Neck mass R22.[address] 63379- 7474 15 Jul, 2016 Hemoptysis R04.2 [place] [address] 92105- 6017 08 Jul, 2016 Acute non-recurrent pansinusitis J01.40 ; Hemoptysis R04.2 ; Polydipsia R63.1 and Malaise R53.81 [facility] [address] 10426 -4662 May, Other viral agents as the cause of diseases classified elsewhere B97.89 and Acute upper respiratory infection, unspecified J06.9 [facility] [address] 95122 -8921 Mar, Nausea R11.0 [facility] [address] 56738 -0754 28 Dec, 2015 Hives L50.9 [place] [id number] [place] [address] 19532- 5221 14 Dec, 2015 [facility] [address] 46341 -3323 10 Dec, 2015 Cutaneous abscess of limb, unspecified L02.419 ; Cellulitis of unspecified part of limb L03.119 ; Encounter for incision and drainage procedure Z01.89 and Encounter for recheck of abscess following incision and drainage Z09 [facility] [place] [id number] [place] [address] 68909 -8582 09 Dec, 2015 Abscess of leg, right L02.[address] [place] [address]- 0286 Dec, Cellulitis of unspecified part of limb L03.119 and Cutaneous abscess of limb, unspecified L02.419 [place] [id number] [place] [address] 47214- 4146 Dec, [place] [id number] [place] [address] 69525- 6043 Dec, [facility] [id number] [place] [address] 94704 -0196 Aug, [place] [id number] [place] [address] 86887- 0439 Aug, [facility] [place] [id number] [place] [address] 16083 -0187 Jul, Pain in unspecified wrist M25.539 and Back pain, thoracic M54.6 [facility] [place] [id number] [place] [address] 39905 -6547 Jun, Strain of right wrist, initial encounter S66.911A [place] [address] 88422- 4671 Jun, Chronic pancreatitis, unspecified pancreatitis type K86.1 ; Hirsuties L68.0 ; Morbid (severe) obesity due to excess calories E66.01 ; Chronic pancreatitis K86.1 and Asthma J45.909 [place] [id number] [place] [address] 44131- 8988 May, [place] [id number] [place] [address] 83826- 9849 May, Hyperlipidemia, mixed E78.2 and Muscle spasm of back M62.830 [place] [id number] [place] [address] 24819- 7487 30 Apr, 2015 [place] [id number] [place] [address] 25122- 7134 Apr, Torticollis M43.6 [facility] [id number] [place] [address] 20353- 0030 Apr, Right-sided thoracic back pain M54.6 [facility] [id number] [place] [address] 87068- 8379 Mar, Rash R21 [facility] [id number] [place] [address] 76793- 2444 Mar, [facility] [id number] [place] [address] 65046- 4113 Jan, [facility] [id number] [place] [address] 85044- 6123 Dec, [facility] [id number] [place] [address] 88688- 9997 Dec, Urinary frequency 788.41 and Nocturia more than twice per night 788.43 [facility] [id number] [place] [address] 90071- 2317 Nov, [facility] [id number] [place] [address] 22281- 3495 Nov, [facility] [id number] [place] [address] 16918- 9058 Nov, Abdominal pain 789.00 [facility] [id number] [place] [address] 72714- 5882 October, TDAP DX V06.1 [facility] [id number] [place] [address] 40131- 6384 October, [facility] [id number] [place] [address] 52525- 5046 October, Disturbance of skin sensation 782.0 ; Wrist pain, right 719.43 ; Hyperlipidemia 272.4 and Skin lesion of face 709.9 [facility] [id number] [place] [address] 52556- 9428 Sep, [facility] [address] [place] [address]- 8126 13 Sep, 2014 [facility] [place] [facility] [address] [id number] [place] [address]- 0719 26 Aug, 2014 [facility] [place] [facility] [address] [id number] [place] [address]- 4316 26 Aug, 2014 [facility] [place] [facility] [address] [id number] [place] [address]- 3631 23 Aug, 2014 [facility] [place] [facility] [address] [id number] [place] [address]- 3365 23 Aug, 2014 [facility] [place] [facility] [address] [id number] [place] [address]- 8658 16 Aug, 2014 [facility] [place] [facility] [address] [id number] [place] [address]- 3276 16 Aug, 2014 [facility] [place] [facility] [address] [id number] [place] [address]- 2727 14 Aug, 2014 [facility] [place] [facility] [address] [id number] [place] [address]- 8670 14 Aug, 2014 [facility] [place] [facility] [address] [id number] [place] [address]- 7020 Aug, [facility] [place] [facility] [address] [id number] [place] [address]- 8666 Aug, [facility] [place] [facility] [address] [id number] [place] [address]- 2956 04 Aug, 2014 [facility] [place] [facility] [address] [id number] [place] [address]- 6219 Aug, [facility] [place] [facility] [address] [id number] [place] [address]- 1686 Aug, [facility] [place] [facility] [address] [id number] [place] [address]- 2546 Aug, [facility] [place] [facility] [address] [id number] [place] 5210 Jul, [facility] [place] [facility] [address] [id number] [place] [address]- 2379 Jul, [facility] [place] [facility] [address] [id number] [place] [address]- 8882 Jul, [facility] [place] [facility] [address] [id number] [place] [address]- 9013 Jul, [facility] [place] [facility] [address] [id number] [place] [address]- 1016 Jul, [facility] [place] [facility] [address] [id number] [place] [address]- 0722 Jul, [facility] [place] [facility] [address] [id number] [place] [address]- 2471 Jun, [facility] [place] [facility] [address] [id number] [place] [address]- 3263 Jun, [facility] [place] [facility] [address] [id number] [place] [address]- 9544 Jun, [facility] [place] [facility] [address] [id number] [place] [address]- 3526 Jun, [facility] [place] [facility] [address] [id number] [place] [address]- 0346 Jun, [facility] [place] [facility] [address] [id number] [place] [address]- 6622 Jun, [facility] [place] [facility] [address] [id number], [place] [address]- 2119 Jun, [facility] [place] [facility] [address] [id number] [place] [address]- 5867 Jun, [facility] [place] [facility] [address] [id number] [place] 7676 May, [facility] [place] [facility] [address] [id number] [place] [address]- 8097 May, [facility] [place] [facility] [address] [id number] [place] [address]- 7703 May, [facility] [address] [id number] [place] [address]- 0496 May, [facility] [place] [facility] [address] [id number] [place] [address]- 3286 May, [facility] [place] [facility] [address] [id number] [place] [address]- 8516 May, [facility] [place] [facility] [address] [id number] [place] [address]- 7922 May, [facility] [place] [facility] [address] [id number] [place] [address]- 8645 May, [facility] [place] [facility] [address] [id number] [place] [address]- 0128 May, [facility] [place] [facility] [address] [id number] [place] [address]- 4755 May, [facility] [place] [facility] [address] [id number] [place] [address]- 1062 May, [facility] [place] [facility] [address] [id number] [place] [address] May, [facility] [place] [facility] [address] [id number] [place] [address] Apr, [facility] [place] [facility] [address] [id number] [place] [address] Apr, [facility] [place] [facility] [address] [id number] [place] [address] Apr, [facility] [place] [facility] [address] [id number] [place] [address] Apr, [facility] [place] [facility] [address] [id number] [place] [address] Apr, [facility] [place] [facility] [address] [id number] [place] [address] Apr, [facility] [place] [facility] [address] [id number] [place] [address] 14 Apr, 2014 [facility] [place] [facility] [address] [id number] [place] [address] 14 Apr, 2014 [facility] [place] [facility] [address] [id number] [place] [address] Apr, [facility] [place] [facility] [address] [id number] [place] [address] Apr, [facility] [place] [facility] [address] [id number] [place] [address] Apr, [facility] [place] [facility] [address] [id number] [place] [address] Apr, [facility] [place] [facility] [address] [id number] [place] [address]- [address] 14 Mar, 2014 [facility] [place] [facility] [address] [id number] [place] [address] Mar, [facility] [place] [facility] [address] [id number] [place] [address]- [address] Mar, [facility] [place] [facility] [address] [id number] [place] [address] Mar, [facility] [place] [facility] [address] [id number] [place] [address] 10 Feb, 2014 [facility] [place] [facility] [address] [id number], [place] [address] Feb, [facility] [place] [facility] [address] [id number] [place] [address] 05 Feb, 2014 [facility] [place] [facility] [address] [id number] [place] [address]- [address] 05 Feb, 2014 [facility] [place] [facility] [address] [id number], [place] [address] 05 Feb, 2014 [facility] [place] [facility] [address] [id number], [place] [address] Feb, [facility] [place] [facility] [address] [id number] [place] [address] Jan, [facility] [place] [facility] [address] [id number] [place] [address] Jan, [facility] [place] [facility] [address] [id number] [place] [address] Jan, [facility] [place] [facility] [address] [id number] [place] [address] Jan, [facility] [place] [facility] [address] [id number] [place] [address] Jan, [facility] [place] [facility] [address] [id number] [place] [address] Jan, [facility] [place] [facility] [address] [id number] [place] [address] Jan, [facility] [place] [facility] [address] [id number] [place] [address] Jan, [facility] [place] [facility] [address] [id number] [place] [address] Jan, [facility] [place] [facility] [address] [address] [id number] [place] [address] Jan, [facility] [place] [facility] [address] [id number] [place] [address] 74[address] Jan, [facility] [place] [facility] [address] [id number] [place] [address] 3305 Jan, [facility] [place] [facility] [address] [id number] [place] [address] 2344 Jan, [facility] [place] [facility] [address] [id number] [place] [address] 6540 Jan, [facility] [place] [facility] [address] [id number] [place] [address] 5705 Dec, [facility] [place] [facility] [address] [id number] [place] [address]174 Dec, [facility] [place] [facility] [address] [id number] [place] [address] 7352 Dec, [facility] [place] [facility] [address] [id number] [place] [address]76 Dec, [facility] [place] [facility] [address] [id number] [place] [address] 4538 Nov, [facility] [place] [facility] [address] [id number] [place] [address] 7318 Nov, [facility] [place] [facility] [address] [id number] [place] [address] Nov, [facility] [place] [facility] [address] [id number] [place] [address] 1639 Nov, [facility] [place] [facility] [address] [id number] [place] [address]- 0482 Nov, [facility] [place] [facility] [address] [id number] [place] [address]- 4106 October, [facility] [place] [facility] [address] [id number] [place] [address] 3181 October, [facility] [place] [facility] [address] [id number] [place] [address]- 4315 October, [facility] [place] [facility] [address] [id number] [place] [address]- 4630 October, [facility] [place] [facility] [address] [id number] [place] [address]- 2379 October, [facility] [place] [facility] [address] [id number] [place] [address]- 7287 October, [facility] [place] [facility] [address] [id number] [place] [address] 3343 October, [facility] [place] [facility] [address] [id number] [place] [address]- 2136 October, [facility] [address] [id number] [place] [address] 8496 October, [facility] [place] [facility] [address] [id number] [place] [address]- 2538 October, [facility] [place] [facility] [address] [id number] [place] [address]- 8250 October, [facility] [place] [facility] [address] [id number] [place] [address]- 3971 October, [facility] [place] [facility] [address] [id number] [place] [address]- 1456 October, [facility] [place] [facility] [address] [id number] [place] [address]- 5799 October, [facility] [place] [facility] [address] [id number] [place] [address]- 0443 Sep, [facility] [place] [facility] [address] [id number] [place] [address] 9250 Sep, [facility] [place] [facility] [address] [id number] [place] [address]- 9716 Sep, [facility] [place] [facility] [address] [id number] [place] [address]- 2337 Sep, [facility] [place] [facility] [address] [id number] [place] [address]- 0484 Sep, [facility] [place] [facility] [address] [id number] [place] [address]- 0417 Sep, [facility] [place] [facility] [address] [id number] [place] [address]- 5168 Sep, [facility] [place] [facility] [address] [id number] [place] [address]- 7946 Sep, [facility] [place] [facility] [address] [id number] [place] [address]- 8891 Sep, [facility] [place] [facility] [address] [id number] [place] [address]- 1028 Sep, [facility] [place] [facility] [address] [id number] [place] [address]- 2329 Sep, [facility] [place] [facility] [address] [id number] [place] [address]- 0188 Sep, [facility] [place] [facility] [address] [id number] [place] [address]- 4556 Sep, [facility] [place] [facility] [address] [id number] [place] [address]- 3959 Sep, [facility] [place] [facility] [address] [id number] [place] [address]- 9083 Sep, [facility] [place] [facility] [address] [id number] [place] [address]- 7402 Aug, [facility] [place] [facility] [address] [id number] [place] [address]- 9198 Aug, [facility] [place] [facility] [address] [id number] [place] [address]- 6943 Aug, [facility] [place] [facility] [address] [id number] [place] [address]- 8195 Aug, [facility] [place] [facility] [address] [facility] [id number] [place] [address] 3997 Jul, [facility] [place] [facility] [address] [id number] [place] [address]- 7680 Jul, [facility] [place] [facility] [address] [id number] [place] [address]- 6942 Jul, [facility] [place] [facility] [address] [id number] [place] [address]- 4079 Jul, [facility] [place] [facility] [address] [id number] [place] [address]- 8216 Jun, [facility] [place] [facility] [address] [id number] [place] [address]- 6086 Jun, [facility] [place] [facility] [address] [id number] [place] [address]- 3673 15 Jun, 2013 [facility] [address] [id number] [place] [address]- 5109 15 Jun, 2013 [facility] [address] [id number] [place] [address]- 9574 10 Jun, 2013 [facility] [address] [id number] [place] [address]- 2027 Jun, [facility] [address] [id number] [place] [address]- 0448 Jun, [facility] [address] [id number] [place] [address]- 9336 Jun, [facility] [address] [id number] [place] [address]- 2970 20 May, 2013 [facility] [address] [id number] [place] [address] 7404 20 May, 2013 [facility] [address] [id number] [place] [address]- 0524 18 May, 2013 [facility] [address] [id number] [place] [address]- 3122 18 May, 2013 [facility] [address] [id number] [place] [address]- 1787 17 May, 2013 [facility] [address] [id number] [place] [id number] 17 May, 2013 [facility] [place] [facility] [address] [id number] [place] [address] 17 May, 2013 [facility] [place] [facility] [address] [id number] [place] [address]- 5724 17 May, 2013 [facility] [place] [facility] [address] [id number] [place] [address]- 7932 16 May, 2013 [facility] [address] [id number] [place] [address]- 8374 16 May, 2013 [facility] [address] [id number] [place] [address]- 5579 14 May, 2013 [facility] [place] [facility] [address] [id number] [place] 14 May, 2013 [facility] [place] [facility] [address] [id number] [place] [address]- 7166 13 May, 2013 [facility] [place] [facility] [address] [id number] [place] [address]- 5361 13 May, 2013 [facility] [place] [facility] [address] [id number] [place] [address]- 8258 12 May, 2013 [facility] [place] [facility] [address] [id number] [place] [address]- 2513 12 May, 2013 [facility] [place] [facility] [address] [id number] [place] [address]- 3042 11 May, 2013 [facility] [place] [facility] [address] [id number] [place] [address]- 3019 11 May, 2013 [facility] [place] [facility] [address] [id number] [place] [address]- 2044 Apr, [facility] [place] [facility] [address] [id number] [place] [address]- 4573 Apr, [facility] [place] [facility] [address] [id number] [place] [address]- 8028 Apr, [facility] [place] [facility] [address] [id number] [place] [address]- 0200 Apr, [facility] [place] [facility] [address] [id number] [place] Aug, [facility] [place] [facility] [address] [id number] [place] 18 Aug, 2012 [facility] [place] [facility] [address] [id number] [place] [address]41 06 Aug, 2012 [facility] [place] [facility] [address] [id number] [place] [address]- 2546 Aug, [facility] [address] [id number] [place] [address]- 5769 Jul, [facility] [address] [id number] [place] [address]- 5466 Jun, [facility] [address] [id number] [place] [address]- 7685 Jun, [facility] [address] [id number] [place] [address]- 1498 Jun, [facility] [address] [id number] [place] [address]- 6649 Jun, [facility] [address] [id number] [place] [address]- 1406 May, [facility] [address] [id number] [place] [address]- 8447 May, [facility] [address] [id number] [place] [address]- 8488 May, [facility] [address] [id number] [place] [address]- 9671 May, [facility] [address] [id number] [place] [address]- 7092 May, [facility] [address] [id number] [place] [address]- 8049 May, [facility] [address] [id number] [place] [address]- 3597 May, [facility] [place] [facility] [address] [id number] [place] [address]- 0037 Apr, [facility] [address] [id number] [place] [address]- 2546 Apr, [facility] [address] [id number] [place] [address]- 2697 Apr, [facility] [place] [facility] [address] [id number] [place] [address]- 2049 Apr, [facility] [place] [facility] [address] [id number] [place] [address]- 7959 Apr, [facility] [place] [facility] [address] [id number] [place] [address]- 1008 Apr, [facility] [place] [facility] [address] [id number] [place] [address]- 6309 Apr, [facility] [place] [facility] [address] [id number] [place] [address]- 9829 Mar, [facility] [place] [facility] [address] [id number] [place] [address]- 7768 Mar, [facility] [place] [facility] [address] [id number] [place] [address]- 9945 Mar, [facility] [place] [facility] [address] [id number], [place] [address]- 9330 Mar, [facility] [place] [facility] [address] [id number] [place] [address]- 7382 Mar, [facility] [place] [facility] [address] [id number], [place] [address]- 2609 Mar, [facility] [place] [facility] [address] [id number], [place] [address]- 0848 Mar, [facility] [place] [facility] [address] [id number], [place] [address]- 3623 Mar, [facility] [place] [facility] [address] [id number], [place] [address]- 4980 15 Mar, 2012 [facility] [place] [facility] [address] [id number], [place] [address]- 7471 Mar, [facility] [place] [facility] [address] [facility] [id number] 6029 Mar, [facility] [place] [facility] [address] [id number] [place] [address]- 8698 Mar, [facility] [place] [facility] [address] [id number] [place] [address]- 7746 Feb, [facility] [place] [facility] [address] [id number] [place] [address]- 1266 Jan, [facility] [place] [facility] [address] [id number] [place] [address]- 5547 Jan, [facility] [place] [facility] [address] [id number] [place] [address]- 2937 Jan, [facility] [place] [facility] [address] [id number] [place] [address]- 2541 Jan, [facility] [place] [facility] [address] [id number] [place] [address]- 4636 Jan, [facility] [place] [facility] [address] [id number] [place] [address]- 7090 Dec, [facility] [place] [facility] [address] [id number] [place] [address]- 3190 Dec, [facility] [place] [facility] [address] [id number] [place] [address]- 3456 Nov, [facility] [place] [facility] [address] [id number] [place] [address]- 0240 Nov, [facility] [place] [facility] [address] [id number] [place] [address]- 0415 Nov, [facility] [place] [facility] [address] [id number] [place] [address]- 5960 October, [facility] [place] [facility] [address] [id number] [place] [address]- 7755 October, [facility] [place] [facility] [address] [id number] [place] [address]- 4472 October, [facility] [place] [facility] [address] [id number] [place] [address]- 2903 October, [facility] [place] [facility] [address] [id number] [place] [address]- 4935 16 Oct, 2011 [facility] [place] [facility] [address] [id number] [place] [address]- 8249 October, [facility] [place] [facility] [address] [id number] [place] [address]- 3029 October, [facility] [place] [facility] [address] [id number] [place] [address]- 1401 26 Sep, 2011 [facility] [place] [facility] [address] [id number] [place] [address]- 7506 26 Sep, 2011 [facility] [place] [facility] [address] [id number] [place] [address]- 0727 26 Sep, 2011 [facility] [place] [facility] [address] [id number] [place] [address]- 5094 25 Sep, 2011 [facility] [place] [facility] [address] [id number] [place] [address]- 9901 24 Sep, 2011 [facility] [place] [facility] [address] [id number] [place] [address]- 9207 19 Sep, 2011 [facility] [place] [facility] [address] [id number] [place] [address]- 2109 17 Sep, 2011 [facility] [place] [facility] [address] [id number] [place] [address]- 2412 16 Sep, 2011 [facility] [place] [facility] [address] [id number] [place] [address]- 6418 16 Sep, 2011 [facility] [place] [facility] [address] [id number] [place] [address]- 8154 14 Sep, 2011 [facility] [place] [facility] [address] [id number] [place] [address]- 5955 13 Sep, 2011 [facility] [place] [facility] [address] [id number] [place] [address]- 0993 10 Sep, 2011 [facility] [place] [facility] [address] [id number] [place] [address]- 6886 Sep, [facility] [address] [id number] [place] [address]- 7837 Aug, [facility] [place] [facility] [address] [id number] [place] [address]- 4536 Aug, [facility] [place] [facility] [address] [facility] [id number] [place] [address]- 5374 08 Aug, 2011 [facility] [place] [facility] [address] [id number] [place] [address]- 7308 06 Aug, 2011 [facility] [place] [facility] [address] [id number] [place] [address]- 6615 28 Jul, 2011 [facility] [place] [facility] [address] [facility] [id number] [place] [address]- 7561 22 Jul, 2011 [facility] [place] [facility] [address] [facility] [id number] [place] [address]- 9758 16 Jul, 2011 [facility] [place] [facility] [address] [id number] [place] [address]- 7441 15 Jul, 2011 [facility] [place] [facility] [address] [facility] [id number] [place] [address]- 5694 14 Jul, 2011 [facility] [place] [facility] [address] [facility] [id number] [place] [address]- 0480 10 Jul, 2011 [facility] [place] [facility] [address] [facility] [id number] [place] [address]- 8684 Jun, [facility] [place] [facility] [address] [facility] [id number] [place] [address]- 6651 Jun, [facility] [place] [facility] [address] [facility] [id number] [place] [address]- 8302 Jun, [facility] [place] [facility] [address] [facility] [id number] [place] [address]- 7238 Jun, [facility] [place] [facility] [address] [facility] [id number] [place] [address]- 1566 Jun, [facility] [place] [facility] [address] [id number] [place] [address]- 8573 27 May, 2011 [facility] [place] [facility] [address] [id number] [place] [address]- 6732 May, [facility] [place] [facility] [address] [id number] [place] [address]- 1726 14 May, 2011 [facility] [place] [facility] [address] [id number] [place] [address]- 9983 14 May, 2011 [facility] [place] [facility] [address] [id number] [place] [address]- 6233 12 May, 2011 [facility] [place] [facility] [address] [id number] [place] [address]- 7654 07 May, 2011 [facility] [place] [facility] [address] [id number] [place] [address]- 1067 05 May, 2011 [facility] [place] [facility] [address] [id number] [place] [address]- 1880 15 Apr, 2011 [facility] [place] [facility] [address] [id number] [place] [address]- 2783 15 Apr, 2011 [facility] [place] [facility] [address] [id number] [place] [address]- 6198 07 Apr, 2011 [facility] [place] [facility] [address] [facility] [id number] [place] [address]- 8184 Apr, [facility] [place] [facility] [address] [id number] [place] [address]- 5055 Apr, [facility] [place] [facility] [address] [id number] [place] [address]- 6172 Apr, [facility] [place] [facility] [address] [id number] [place] [address]- 8852 Mar, [facility] [place] [facility] [address] [id number] [place] [address]- 1808 Mar, [facility] [place] [facility] [address] [id number] [place] [address]- 4422 Mar, [facility] [place] [facility] [address] [id number] [place] [address]- 1245 Mar, [facility] [place] [facility] [address] [id number] [place] [address]- 9002 Jan, [facility] [place] [facility] [address] [id number] [place] [address]- 9629 Dec, [facility] [place] [facility] [address] [id number] [place] [address]- 5947 Dec, [facility] [place] [facility] [address] [id number] [place] [address]- 4007 October, [facility] [place] [facility] [address] [id number] [place] [address]- 1855 Sep, [facility] [place] [facility] [address] [id number] [place] [address]- 7706 Sep, [facility] [place] [facility] [address] [id number] [place] [address]- 7614 Jul, [facility] [place] [facility] [address] [id number] [place] [address]- 3061 Jul, [facility] [place] [facility] [address] [id number] [place] [address]- 2703 May, [facility] [place] [facility] [address] [id number] [place] [address]- 6434 May, [facility] [place] [facility] [address] [id number] [place] [address]- 0899 May, [facility] [place] [facility] [address] [id number] [place] [address]- 2965 May, [facility] [place] [facility] [address] [id number] [place] [address]- 0955 Apr, [facility] [place] [facility] [address] [id number] [place] [address]- 5655 Apr, [facility] [place] [facility] [address] [id number] [place] [address]- 7457 18 Apr, 2010 [facility] [place] [facility] [address] [id number] [place] [address] 18 Apr, 2010 [facility] [place] [facility] [address] [id number] [place] [address] Apr, [facility] [place] [facility] [address] [id number] [place] [address] 21 Mar, 2010 [facility] [place] [facility] [address] [id number] [place] [address] 14 Mar, 2010 [facility] [place] [facility] [address] [id number] [place] [address] 13 Mar, 2010 [facility] [place] [facility] [address] [id number] [place] [address] Mar, [facility] [place] [facility] [address] [id number] [place] [address] Jan, [facility] [place] [facility] [address] [id number] [place] [address] 15 Dec, 2009 [facility] [place] [facility] [address] [id number] [place] [address] 10 Sep, 2009 [facility] [place] [facility] [address] [facility] [id number] [place] [address] 08 May, 2009 [facility] [place] [facility] [address] [id number] [place] [address] 06 May, 2009 [facility] [place] [facility] [address] [id number] [place] [address] May, [facility] [place] [facility] [address] [id number] [place] [address] 17 Apr, 2009 [facility] [place] [facility] [address] [facility] [id number] [place] [address] 17 Apr, 2009 [facility] [place] [facility] [address] [id number] [place] [address] Apr, [facility] [address] [facility] [id number], [place] [address] Apr, [facility] [address] [id number], [place] [address] Apr, [facility] [address] [id number], [place] [address] Mar, [facility] [id number], [place] [address] Mar, [facility] [address] [facility] [id number], [place] [address] Jul, IMMUNIZATIONS No Known Immunizations SOCIAL HISTORY Never Assessed REASON FOR VISIT Patient Concerns PLAN OF CARE Activity Details Pending Test Ultrasound : Venous Doppler (DVT EVAL) VITAL SIGNS MEDICATIONS Unknown Medications RESULTS No [...] cholecystectomy Surgical History Right knee scope- Dr. oGnzalez 11/2015 Surgical History right knee scope 05/2016 [...] the January before. 03/2018 Hospitalization History Cellulitis-[facility]ia [facility] 12/20/15 Hospitalization History [facility]- Abd pain 03/07/2017 Hospitalization History [facility]- Abd pain 03/14/2017 Hospitalization History [facility]- No bowel movement, rash 04/13/2017 Hospitalization History [facility]- Abd pain r/t kidney surgery on 04/17/2017 Hospitalization History [facility]- Abd pain r/t kidney surgery on 04/18/2017 Hospitalization History [facility]- Lower abd pain 04/30/2017 Hospitalization History [facility]- Cannot urinate 05/30/2017 Hospitalization History [facility]- Pancreatitis Sx 06/29/2017 Hospitalization History [facility]- Stomach pain 07/22/2017 Hospitalization History [facility]- Left side pain 08/12/2017 Hospitalization History [facility]- Incision site infection 08/30/2017 Hospitalization History [facility]- Post Op Seroma/Hematoma Left Abdomen. Discharged 09/04/17- Dr Daniel 09/02/2017 Hospitalization History [facility]- Right shoulder and back pain 2017 Hospitalization History [facility]- Shoulder/Back pain 11/11/2017 Hospitalization History [facility]- Right shoulder blade pain 12/04/2017 Hospitalization History [facility]- C-Diff 12/13/2017 Hospitalization History C diff et MRSA 12/27/2017
--- OUTSIDE RECORDS SUMMARY | 2018-04-29 10:33 | XMS REPORT ---
Author Author SAI CARMEN [facility] Address [address] [place] [address] Care Team Providers Care Tavern Keeper Name Role Phone SAICORTNEY KOENIGHANY Unavailable PROBLEMS Type Condition ICD9-CM Code FXL43-BU Code Onset Dates Condition Status SNOMED Code Problem Atelectasis J98.11 Active 01877603 Problem Restless leg syndrome G25.81 Active 82713031 Problem Trichotillomania F63.3 Active 50637380 Problem Primary osteoarthritis of right knee M17.11 Active 327369347275452 Problem Intestinal malabsorption, unspecified K90.9 Active 12275103 Problem Chronic post-traumatic stress disorder (PTSD) F43.12 Active 393780430 Problem Generalized social phobia F40.11 Active 71263003 Problem Chronic fatigue R53.82 Active 34126059 Problem Moderate episode of recurrent major depressive disorder F33.1 Active 462314591 Problem Chronic tension-type headache, intractable G44.221 Active 203943999 Problem Morbid (severe) obesity due to excess calories E66.01 Active 463012004 Problem Nodule of left lung R91.1 Active 838783763 Problem History of renal cell carcinoma Z85.528 Active 128002836 Problem FH: polycystic ovary Z84.2 Active 376218280 Problem Chronic pancreatitis K86.1 Active 627870917 Problem Hyperlipidemia, mixed E78.2 Active 506507718 Problem Asthma J45.909 Active 258058418 Problem Hirsuties L68.0 Active 465990659 Problem Polydipsia R63.1 Active 50424482 ALLERGIES No Information ENCOUNTERS Encounter Location Date Diagnosis [facility] [id number], [place] [address] Mar, Primary osteoarthritis of right knee M17.11 and BMI 45.0- 49.9, adult Z68.42 [facility] [address], [place] [address] Mar, [facility] [id number], [place] [address] Feb, Left upper arm pain M79.622 [facility] [id number] [place] [address] 98791- 2053 Feb, [facility] [id number] [place] [address] 72790- 5081 Jan, Acute pain of right knee M25.561 ; Right upper quadrant abdominal pain R10.11 and BMI 45.0-49.9, adult Z68.42 [facility] [id number] [place] [address] 74115- 2751 Jan, [facility] [id number] [place] [address] 09379- 3618 Jan, [facility] [id number] [place] [address] 17485- 1296 Dec, [facility] [id number] [place] [address] 54487- 7333 Dec, Intestinal malabsorption, unspecified K90.9 and Diarrhea, unspecified R19.7 [facility] [id number], [place] [address] 7766 Dec, [facility] [address] [place] [address] 85652- 0238 Dec, Strep throat J02.0 ; Intestinal malabsorption, unspecified K90.9 ; Diarrhea, unspecified R19.7 ; Postoperative seroma involving digestive system after non-digestive system procedure K91.873 ; Hyperlipidemia, mixed E78.2 and BMI 45.0-49.9, adult Z68.42 [facility] [id number] [place] [address] 06100- 4287 Dec, [facility] [id number] [place] [address] 05022- 7622 Dec, Nausea R11.0 [facility] [address], [place] [address] Dec, [facility] [id number], [place] [address] Dec, Sore throat J02.9 ; Strep throat J02.0 and BMI 45.0-49.9, adult Z68.42 [facility] [id number] [place] [address] 31736- 4886 Dec, [facility] [id number], [place] [address] 8067 Dec, [facility] [id number] [place] [address] 28353- 9485 Dec, [facility] [id number] [place] [address] 32013- 9673 Dec, [facility] [id number] [place] [address] 14873- 7087 Dec, [facility] [id number], [place] [address]- 1679 Dec, [facility] [id number], [place] [address]- 3077 Dec, [facility] [id number], [place] [address]- 2860 Dec, [facility] [id number], [place] [address] 9341 Dec, Clostridium difficile colitis A04.72 ; Intractable vomiting with nausea, unspecified vomiting type R11.2 and BMI 45.0-49.9, adult Z68.42 [facility] [address], [place] [address]- 8058 Dec, [facility] [id number], [place] [address]- 9107 Nov, [facility] [id number], [place] [address]- 3651 Nov, [place] [id number] [place] [address] 77864- 8824 Nov, [place] [id number] [place] [address] 89444- 7836 Nov, [facility] [place] [id number] [place] [address] 24412 -9182 Nov, [place] [id number] [place] [address] 18891- 8591 Nov, Hyperlipidemia, mixed E78.2 [facility] [place] [id number] [place] [address] 46688 -7921 Nov, Acute suppurative otitis media of right ear without spontaneous rupture of tympanic membrane, recurrence not specified H66.001 and BMI 45.0-49.9, adult Z68.42 [place] [id number] [place] [address] 54054- 5240 Nov, Hyperlipidemia, mixed E78.2 [place] [id number] [place] [address] 43945- 0484 Nov, [place] [id number] [place] [address] 65570- 7241 Nov, [place] [id number] [place] [address] 55579- 0263 Nov, Nodule of left lung R91.1 [place] [id number] [place] [address] 09786- 8360 Nov, Medicare annual wellness visit, initial Z00.00 [...] adult Z68.42 and Encounter for immunization Z23 [place] [id number] [place] [address] 61140- 5185 October, [place] [address] 41423- 4377 October, Nodule of left lung R91.1 [place] [address] 90730- 3221 October, Nodule of left lung R91.1 [place] [address] 61105- 2504 October, Recurrent major depressive disorder, in partial remission F33.41 ; Restless leg syndrome G25.81 ; Generalized social phobia F40.11 ; Chronic post-traumatic stress disorder (PTSD) F43.12 ; BMI 45.0-49.9, adult Z68.42 and Trichotillomania F63.3 [place] [address] 67891- 7102 October, [place] [id number] [place] [address] 06644- 9638 Sep, Chronic fatigue R53.82 and BMI 45.0-49.9, adult Z68.42 [place] [id number] [place] [address] 18440- 8132 Aug, [place] [id number] [place] [address] 86711- 6722 Jul, Restless leg syndrome G25.81 and B12 deficiency E53.8 [place] [address] 21636- 0740 Jul, [place] [address] 32541- 8666 Jul, [place] [id number] [place] [address] 17586- 3204 Jun, [place] [address], [place] [address]- 9524 Jun, Fatigue, unspecified type R53.83 ; History of renal cell carcinoma Z85.528 ; Chronic pancreatitis K86.1 ; Restless leg syndrome G25.81 ; Dark urine R82.99 and BMI 45.0-49.9, adult Z68.42 [place] [id number] [place] [address] 68293- 1498 Jun, [place] [id number] [place] [address] 48280- 4807 Jun, [place] [id number] [place] [address] 88311- 3029 Jun, [place] [id number] [place] [address] 52100- 7700 Jun, [place] [id number] [place] [address] 87193- 6578 May, Chronic post-traumatic stress disorder (PTSD) F43.12 ; Moderate episode of recurrent major depressive disorder F33.1 ; Trichotillomania F63.3 and Generalized social phobia F40.11 [place] [address] [place] [address] 13486- 0884 May, [place] [address], [place] [address]- 8191 May, Chronic post-traumatic stress disorder (PTSD) F43.12 ; Moderate episode of recurrent major depressive disorder F33.1 ; Trichotillomania F63.3 and Generalized social phobia F40.11 [place] [address] [place] [address] 18400- 7519 07 May, 2017 Hyperlipidemia, mixed E78.2 ; Morbid (severe) obesity due to excess calories E66.01 ; Chronic post-traumatic stress disorder (PTSD) F43.12 ; Moderate episode of recurrent major depressive disorder F33.1 ; Trichotillomania F63.3 and Generalized social phobia F40.11 [place] [id number] [place] [address] 34954- 8706 Apr, [place] [id number] [place] [address] 90364- 0002 Apr, Hyperlipidemia, mixed E78.2 ; Morbid (severe) obesity due to excess calories E66.01 ; Chronic post-traumatic stress disorder (PTSD) F43.12 ; Moderate episode of recurrent major depressive disorder F33.1 ; Trichotillomania F63.3 and Generalized social phobia F40.11 [place] [id number] [place] [address] 10609- 8416 Apr, Trichotillomania F63.3 ; Generalized social phobia F40.11 ; Chronic post-traumatic stress disorder (PTSD) F43.12 and Moderate episode of recurrent major depressive disorder F33.1 [place] [id number] [place] [address] 75439- 9520 Apr, [place] [id number] [place] [address] 05243- 2147 Apr, [place] [id number] [place] [address] 19816- 4776 Mar, Moderate episode of recurrent major depressive disorder F33.1 ; Trichotillomania F63.3 ; Chronic post-traumatic stress disorder (PTSD) F43.12 ; Generalized social phobia F40.11 and Restless leg syndrome G25.81 [place] [id number] [place] [address] 95013- 7779 Mar, [place] [id number] [place] [address] 96857- 6512 Mar, [place] [id number] [place] [address] 13015- 0077 Feb, Left kidney mass N28.89 [place] [id number] [place] [address] 97719- 2053 Jan, [place] [address] [place] [address]- 7765 Dec, Polydipsia R63.1 ; Chronic pancreatitis K86.1 and Fatigue, unspecified type R53.83 [facility] [id number], [place] [address]- 6435 Nov, [facility] [id number] [place] [address] 52578- 2101 Nov, [facility] [id number] [place] [address] 86297- 4556 Nov, Headache around the eyes R51 [facility] [id number] [place] [address] 02320- 4739 Nov, [facility] [id number] [place] [address] 60076- 3533 October, STD exposure Z20.2 [facility] [id number] [place] [address] 91517- 1315 October, STD exposure Z20.2 [facility] [id number] [place] [address] 06388- 8411 October, Chronic post-traumatic stress disorder (PTSD) F43.12 ; Generalized social phobia F40.11 ; Trichotillomania F63.3 and Restless leg syndrome G25.81 [facility] [address], [place] [address]- 0745 October, [facility] [id number] [place] [address] 82377- 0060 Sep, [facility] [id number], [place] [address]- 4256 Aug, [facility] [id number] [place] [address] 28866- 2355 Aug, [facility] [address], [place] [address]- 0650 Aug, Neck mass R22.1 [facility] [id number] [place] [address] 45418- 4478 03 Aug, 2016 Atelectasis J98.11 [place] [address] 33646- 2566 28 Jul, 2016 Hyperlipidemia, mixed E78.2 ; Atypical pneumonia J18.9 and Neck mass R22.[address] 19841- 8631 15 Jul, 2016 Hemoptysis R04.2 [place] [address] 57759- 2368 08 Jul, 2016 Acute non-recurrent pansinusitis J01.40 ; Hemoptysis R04.2 ; Polydipsia R63.1 and Malaise R53.81 [facility] [address] [address]01 -[address]156 May, Other viral agents as the cause of diseases classified elsewhere B97.89 and Acute upper respiratory infection, unspecified J06.9 [facility] [address] 90649 -8376 Mar, Nausea R11.0 [facility] [address] 76818 -6895 28 Dec, 2015 Hives L50.9 [place] [id number] [place] [address] 62652- 3107 14 Dec, 2015 [facility] [address] 34798 -6410 10 Dec, 2015 Cutaneous abscess of limb, unspecified L02.419 ; Cellulitis of unspecified part of limb L03.119 ; Encounter for incision and drainage procedure Z01.89 and Encounter for recheck of abscess following incision and drainage Z09 [facility] [place] [id number] [place] [address] 83378 -7906 09 Dec, 2015 Abscess of leg, right L02.[address] [place] [address]- 9406 Dec, Cellulitis of unspecified part of limb L03.119 and Cutaneous abscess of limb, unspecified L02.419 [place] [id number] [place] [address] 08710- 9880 Dec, [place] [id number] [place] [address] 94330- 3619 Dec, [facility] [id number] [place] [address] 16004 -4052 Aug, [place] [id number] [place] [address] 87584- 6397 Aug, [facility] [place] [id number] [place] [address] 46594 -4422 Jul, Pain in unspecified wrist M25.539 and Back pain, thoracic M54.6 [facility] [place] [id number] [place] [address] 26762 -9289 Jun, Strain of right wrist, initial encounter S66.911A [place] [address] 17687- 6758 Jun, Chronic pancreatitis, unspecified pancreatitis type K86.1 ; Hirsuties L68.0 ; Morbid (severe) obesity due to excess calories E66.01 ; Chronic pancreatitis K86.1 and Asthma J45.909 [place] [id number] [place] [address] 93245- 5984 May, [place] [id number] [place] [address] 93682- 5830 May, Hyperlipidemia, mixed E78.2 and Muscle spasm of back M62.830 [place] [id number] [place] [address] 75560- 4217 30 Apr, 2015 [place] [address] [address] [id number] [place] [address] 35998- 8792 Apr, Torticollis M43.6 [facility] [id number] [place] [address] 19624- 8806 Apr, Right-sided thoracic back pain M54.6 [facility] [id number] [place] [address] 68337- 5841 Mar, Rash R21 [facility] [id number] [place] [address] 91847- 4729 Mar, [facility] [address] [id number] [place] [address] 69038- 4096 Jan, [facility] [address] [id number] [place] [address] 71054- 8361 Dec, [facility] [address] [id number] [place] [address] 09928- 6367 Dec, Urinary frequency 788.41 and Nocturia more than twice per night 788.43 [facility] [address] [place] [address] [id number] [place] [address] 99927- 8685 Nov, [facility] [id number] [place] [address] 29726- 3043 Nov, [facility] [address] [place] [address] [id number] [place] [address] 65678- 5412 Nov, Abdominal pain 789.00 [facility] [address] [place] [address] [id number] [place] [address] 99809- 0608 October, TDAP DX V06.1 [facility] [id number] [place] [address] 60678- 6096 October, [facility] [id number] [place] [address] 01108- 8649 October, Disturbance of skin sensation 782.0 ; Wrist pain, right 719.43 ; Hyperlipidemia 272.4 and Skin lesion of face 709.9 [facility] [id number] [place] [address] 33010- 1837 Sep, [facility] [address] [place] [address]- 8046 13 Sep, 2014 [facility] [place] [facility] [address] [id number] [place] [address]- 2987 26 Aug, 2014 [facility] [place] [facility] [address] [id number] [place] [address]- 9556 26 Aug, 2014 [facility] [place] [facility] [address] [id number] [place] [address]- 7454 23 Aug, 2014 [facility] [place] [facility] [address] [id number] [place] [address]- 3689 23 Aug, 2014 [facility] [place] [facility] [address] [id number] [place] [address]- 6875 16 Aug, 2014 [facility] [place] [facility] [address] [id number] [place] [address]- 3786 16 Aug, 2014 [facility] [place] [facility] [address] [id number] [place] [address]- 0662 14 Aug, 2014 [facility] [place] [facility] [address] [id number] [place] [address]- 5928 14 Aug, 2014 [facility] [place] [facility] [address] [id number] [place] [address]- 2683 Aug, [facility] [place] [facility] [address] [id number] [place] [address]- 0634 Aug, [facility] [place] [facility] [address] [id number] [place] [address]- 5206 04 Aug, 2014 [facility] [place] [facility] [address] [id number] [place] [address]- 7877 Aug, [facility] [place] [facility] [address] [id number] [place] [address]- 6146 Aug, [facility] [place] [facility] [address] [id number] [place] [address]- 2546 Aug, [facility] [place] [facility] [address] [id number] [place] 3280 Jul, [facility] [place] [facility] [address] [id number] [place] [address]- 7962 Jul, [facility] [place] [facility] [address] [id number] [place] [address]- 4804 Jul, [facility] [place] [facility] [address] [id number] [place] [address]- 6219 Jul, [facility] [place] [facility] [address] [id number] [place] [address]- 6489 Jul, [facility] [place] [facility] [address] [id number] [place] [address]- 4789 Jul, [facility] [place] [facility] [address] [id number] [place] [address]- 7229 Jun, [facility] [place] [facility] [address] [id number] [place] [address]- 8572 Jun, [facility] [place] [facility] [address] [id number] [place] [address]- 0377 Jun, [facility] [place] [facility] [address] [id number] [place] [address]- 9537 Jun, [facility] [place] [facility] [address] [id number] [place] [address]- 6847 Jun, [facility] [place] [facility] [address] [id number] [place] [address]- 0823 Jun, [facility] [place] [facility] [address] [id number], [place] [address]- 8753 Jun, [facility] [place] [facility] [address] [id number] [place] [address]- 0363 Jun, [facility] [place] [facility] [address] [id number] [place] 2419 May, [facility] [place] [facility] [address] [id number] [place] [address]- 1352 May, [facility] [place] [facility] [address] [id number] [place] [address]- 0949 May, [facility] [address] [id number] [place] [address]- 7286 May, [facility] [place] [facility] [address] [id number] [place] [address]- 2706 May, [facility] [place] [facility] [address] [id number] [place] [address]- 8076 May, [facility] [place] [facility] [address] [id number] [place] [address] May, [facility] [place] [facility] [address] [id number] [place] [address] May, [facility] [place] [facility] [address] [id number] [place] [address] May, [facility] [place] [facility] [address] [id number] [place] [address] May, [facility] [place] [facility] [address] [id number] [place] [address] May, [facility] [place] [facility] [address] [id number] [place] [address] May, [facility] [place] [facility] [address] [id number] [place] [address] Apr, [facility] [place] [facility] [address] [id number] [place] [address] Apr, [facility] [place] [facility] [address] [id number] [place] [address] Apr, [facility] [place] [facility] [address] [id number] [place] [address]- [address] Apr, [facility] [place] [facility] [address] [id number] [place] [address] Apr, [facility] [place] [facility] [address] [id number] [place] [address] Apr, [facility] [place] [facility] [address] [id number] [place] [address] 14 Apr, 2014 [facility] [place] [facility] [address] [id number] [place] [address] 14 Apr, 2014 [facility] [place] [facility] [address] [id number] [place] [address]- [address] Apr, [facility] [place] [facility] [address] [id number] [place] [address] Apr, [facility] [place] [facility] [address] [id number] [place] [address] Apr, [facility] [place] [facility] [address] [id number] [place] [address]- [address] Apr, [facility] [place] [facility] [address] [id number] [place] [address] 14 Mar, 2014 [facility] [place] [facility] [address] [id number] [place] [address] Mar, [facility] [place] [facility] [address] [id number] [place] [address] Mar, [facility] [place] [facility] [address] [id number] [place] [address] Mar, [facility] [place] [facility] [address] [id number] [place] [address]- [address] 10 Feb, 2014 [facility] [place] [facility] [address] [id number], [place] [address] Feb, [facility] [place] [facility] [address] [id number] [place] [address]- [address] 05 Feb, 2014 [facility] [place] [facility] [address] [id number] [place] [address] 05 Feb, 2014 [facility] [place] [facility] [address] [id number], [place] [address] 05 Feb, 2014 [facility] [place] [facility] [address] [id number], [place] [address] Feb, [facility] [place] [facility] [address] [id number] [place] [address] Jan, [facility] [place] [facility] [address] [id number] [place] [address] 1673 Jan, [facility] [place] [facility] [address] [id number] [place] [address]- 12[address] Jan, [facility] [place] [facility] [address] [id number] [place] [address]- 275[address] Jan, [facility] [place] [facility] [address] [id number] [place] [address]- 6917 Jan, [facility] [place] [facility] [address] [id number] [place] [address]- 6138 Jan, [facility] [place] [facility] [address] [id number] [place] [address]- 3100 Jan, [facility] [place] [facility] [address] [id number] [place] [address]- 6[address] Jan, [facility] [place] [facility] [address] [id number] [place] [address]- 8680 Jan, [facility] [place] [facility] [address] [id number] [place] [address]- 6910 Jan, [facility] [place] [facility] [address] [id number] [place] [address]- 4114 Jan, [facility] [place] [facility] [address] [id number] [place] [address]- 0238 Jan, [facility] [place] [facility] [address] [id number] [place] [address]- 8942 Jan, [facility] [place] [facility] [address] [id number] [place] [address]- 6615 Jan, [facility] [place] [facility] [address] [id number] [place] [address]- 4460 Dec, [facility] [place] [facility] [address] [id number] [place] [address]- 27[address] Dec, [facility] [place] [facility] [address] [id number] [place] [address]- 9545 Dec, [facility] [place] [facility] [address] [id number] [place] [address]- 6656 Dec, [facility] [place] [facility] [address] [id number] [place] [address]- 9704 Nov, [facility] [place] [facility] [address] [id number] [place] [address]- 4656 Nov, [facility] [place] [facility] [address] [id number] [place] [address]- 0431 Nov, [facility] [place] [facility] [address] [id number] [place] [address]- 3972 Nov, [facility] [place] [facility] [address] [id number] [place] [address]- 4202 Nov, [facility] [place] [facility] [address] [id number] [place] [address]- 6164 October, [facility] [place] [facility] [address] [id number] [place] [address]- 8370 October, [facility] [place] [facility] [address] [id number] [place] [address]- 5584 October, [facility] [place] [facility] [address] [id number] [place] [address]- 0845 October, [facility] [place] [facility] [address] [id number] [place] [address]- 6424 October, [facility] [place] [facility] [address] [id number] [place] [address]- 0038 October, [facility] [place] [facility] [address] [id number] [place] [address]- 3264 October, [facility] [place] [facility] [address] [id number] [place] [address]- 6171 October, [facility] [address] [id number] [place] [address]- 3632 October, [facility] [place] [facility] [address] [id number] [place] [address]- 7490 October, [facility] [place] [facility] [address] [id number] [place] [address]- 2590 October, [facility] [place] [facility] [address] [id number] [place] [address]- 8468 October, [facility] [place] [facility] [address] [id number] [place] [address]- 6428 October, [facility] [place] [facility] [address] [id number] [place] [address]- 1482 October, [facility] [place] [facility] [address] [id number] [place] [address]- 5328 Sep, [facility] [place] [facility] [address] [id number] [place] [address]- 9702 Sep, [facility] [place] [facility] [address] [id number] [place] [address]- 5268 Sep, [facility] [place] [facility] [address] [id number] [place] [address]- 3637 Sep, [facility] [place] [facility] [address] [id number] [place] [address]- 0363 Sep, [facility] [place] [facility] [address] [id number] [place] [address]- 5867 Sep, [facility] [place] [facility] [address] [id number] [place] [address]- 7105 Sep, [facility] [place] [facility] [address] [id number] [place] [address]- 9241 Sep, [facility] [place] [facility] [address] [id number] [place] [address]- 9098 Sep, [facility] [place] [facility] [address] [id number] [place] [address]- 4402 Sep, [facility] [place] [facility] [address] [id number] [place] [address]- 9157 Sep, [facility] [place] [facility] [address] [id number] [place] [address]- 8336 Sep, [facility] [place] [facility] [address] [id number] [place] [address]- 6572 Sep, [facility] [place] [facility] [address] [id number] [place] [address]- 7058 Sep, [facility] [place] [facility] [address] [id number] [place] [address]- 3639 Sep, [facility] [place] [facility] [address] [id number] [place] [address]- 3534 Aug, [facility] [place] [facility] [address] [id number] [place] [address]- 6872 Aug, [facility] [place] [facility] [address] [id number] [place] [address]- 6964 Aug, [facility] [place] [facility] [address] [id number] [place] [address]- 7302 Aug, [facility] [place] [facility] [address] [facility] [id number] [place] [address]- 6741 Jul, [facility] [place] [facility] [address] [id number] [place] [address]- 3931 Jul, [facility] [place] [facility] [address] [id number] [place] [address]- 9319 Jul, [facility] [place] [facility] [address] [id number] [place] [address]- 2365 Jul, [facility] [place] [facility] [address] [id number] [place] [address]- 4260 Jun, [facility] [place] [facility] [address] [id number] [place] [address]- 3188 Jun, [facility] [place] [facility] [address] [id number] [place] [address]- 6020 15 Jun, 2013 [facility] [address] [id number] [place] [address]- 1528 15 Jun, 2013 [facility] [address] [id number] [place] [address]- 6436 10 Jun, 2013 [facility] [address] [id number] [place] [address]- 8747 Jun, [facility] [address] [id number] [place] [address]- 5576 Jun, [facility] [address] [id number] [place] [address]- 2310 Jun, [facility] [address] [id number] [place] [address]- 5434 20 May, 2013 [facility] [address] [id number] [place] [address]- 6271 20 May, 2013 [facility] [address] [id number] [place] [address]- 2185 18 May, 2013 [facility] [address] [id number] [place] [address]- 8580 18 May, 2013 [facility] [address] [id number] [place] [address]- 5866 17 May, 2013 [facility] [address] [id number] [place] [id number] 17 May, 2013 [facility] [place] [facility] [address] [id number] [place] 0491 17 May, 2013 [facility] [place] [facility] [address] [id number] [place] [address]- 4384 17 May, 2013 [facility] [place] [facility] [address] [id number] [place] [address]- 0576 16 May, 2013 [facility] [address] [id number] [place] [address]- 4204 16 May, 2013 [facility] [address] [id number] [place] [address]- 0125 14 May, 2013 [facility] [place] [facility] [address] [id number] [place] [address] 14 May, 2013 [facility] [place] [facility] [address] [id number] [place] [address]- 7295 13 May, 2013 [facility] [place] [facility] [address] [id number] [place] [address]- 6256 13 May, 2013 [facility] [place] [facility] [address] [id number] [place] [address]- 6340 12 May, 2013 [facility] [place] [facility] [address] [id number] [place] [address]- 1793 12 May, 2013 [facility] [place] [facility] [address] [id number] [place] [address]- 1463 11 May, 2013 [facility] [place] [facility] [address] [id number] [place] [address]- 2166 11 May, 2013 [facility] [place] [facility] [address] [id number] [place] [address]- 7513 Apr, [facility] [place] [facility] [address] [id number] [place] [address]- 0192 Apr, [facility] [place] [facility] [address] [id number] [place] [address]- 6945 Apr, [facility] [place] [facility] [address] [id number] [place] [address]- 9729 Apr, [facility] [place] [facility] [address] [id number] [place] 9769 Aug, [facility] [place] [facility] [address] [id number] [place] [address]463 18 Aug, 2012 [facility] [place] [facility] [address] [id number] [place] [address]454 06 Aug, 2012 [facility] [place] [facility] [address] [id number] [place] [address]- 2546 Aug, [facility] [address] [id number] [place] [address]- 1089 Jul, [facility] [address] [id number] [place] [address]- 6446 Jun, [facility] [address] [id number] [place] [address]- 2181 Jun, [facility] [address] [id number] [place] [address]- 6357 Jun, [facility] [address] [id number] [place] [address]- 4084 Jun, [facility] [address] [id number] [place] [address]- 3512 May, [facility] [address] [id number] [place] [address]- 7773 May, [facility] [address] [id number] [place] [address]- 9102 May, [facility] [address] [id number] [place] [address]- 9927 May, [facility] [address] [id number] [place] [address]- 2917 May, [facility] [address] [id number] [place] [address]- 2728 May, [facility] [address] [id number] [place] [address]- 6381 May, [facility] [place] [facility] [address] [id number] [place] [address]- 0662 Apr, [facility] [address] [id number] [place] [address]- 2546 Apr, [facility] [address] [id number] [place] [address]- 6576 Apr, [facility] [place] [facility] [address] [id number] [place] [address]- 5994 Apr, [facility] [place] [facility] [address] [id number] [place] [address]- 5256 Apr, [facility] [place] [facility] [address] [id number] [place] [address]- 2651 Apr, [facility] [place] [facility] [address] [id number] [place] [address]- 1798 Apr, [facility] [place] [facility] [address] [id number] [place] [address]- 2488 Mar, [facility] [place] [facility] [address] [id number] [place] [address]- 4040 Mar, [facility] [place] [facility] [address] [id number] [place] [address]- 2836 Mar, [facility] [place] [facility] [address] [id number], [place] [address]- 8974 Mar, [facility] [place] [facility] [address] [id number] [place] [address]- 5754 Mar, [facility] [place] [facility] [address] [id number], [place] [address]- 3044 Mar, [facility] [place] [facility] [address] [id number], [place] [address]- 9673 Mar, [facility] [place] [facility] [address] [id number], [place] [address]- 9173 Mar, [facility] [place] [facility] [address] [id number], [place] [address]- 8128 15 Mar, 2012 [facility] [place] [facility] [address] [id number], [place] [address]- 3309 Mar, [facility] [place] [facility] [address] [facility] [id number] 8173 Mar, [facility] [place] [facility] [address] [id number] [place] [address]- 0136 Mar, [facility] [place] [facility] [address] [id number] [place] [address]- 0820 Feb, [facility] [place] [facility] [address] [id number] [place] [address]- 7486 Jan, [facility] [place] [facility] [address] [id number] [place] [address]- 5613 Jan, [facility] [place] [facility] [address] [id number] [place] [address]- 3965 Jan, [facility] [place] [facility] [address] [id number] [place] [address]- 0737 Jan, [facility] [place] [facility] [address] [id number] [place] [address]- 0604 Jan, [facility] [place] [facility] [address] [id number] [place] [address]- 8297 Dec, [facility] [place] [facility] [address] [id number] [place] [address]- 1190 Dec, [facility] [place] [facility] [address] [id number] [place] [address]- 3104 Nov, [facility] [place] [facility] [address] [id number] [place] [address]- 3465 Nov, [facility] [place] [facility] [address] [id number] [place] [address]- 1127 Nov, [facility] [place] [facility] [address] [id number] [place] [address]- 5439 October, [facility] [place] [facility] [address] [id number] [place] [address]- 3511 October, [facility] [place] [facility] [address] [id number] [place] [address]- 5168 October, [facility] [place] [facility] [address] [id number] [place] [address]- 0177 October, [facility] [place] [facility] [address] [id number] [place] [address]- 3175 16 Oct, 2011 [facility] [place] [facility] [address] [id number] [place] [address]- 3789 October, [facility] [place] [facility] [address] [id number] [place] [address]- 1124 October, [facility] [place] [facility] [address] [id number] [place] [address]- 0443 26 Sep, 2011 [facility] [place] [facility] [address] [id number] [place] [address]- 1293 26 Sep, 2011 [facility] [place] [facility] [address] [id number] [place] [address]- 1711 26 Sep, 2011 [facility] [place] [facility] [address] [id number] [place] [address]- 8851 25 Sep, 2011 [facility] [place] [facility] [address] [id number] [place] [address]- 4812 24 Sep, 2011 [facility] [place] [facility] [address] [id number] [place] [address]- 9172 19 Sep, 2011 [facility] [place] [facility] [address] [id number] [place] [address]- 4100 17 Sep, 2011 [facility] [place] [facility] [address] [id number] [place] [address]- 3916 16 Sep, 2011 [facility] [place] [facility] [address] [id number] [place] [address]- 2144 16 Sep, 2011 [facility] [place] [facility] [address] [id number] [place] [address]- 6767 14 Sep, 2011 [facility] [place] [facility] [address] [id number] [place] [address]- 5305 13 Sep, 2011 [facility] [place] [facility] [address] [id number] [place] [address]- 0383 10 Sep, 2011 [facility] [place] [facility] [address] [id number] [place] [address]- 8691 Sep, [facility] [address] [id number] [place] [address]- 9345 Aug, [facility] [place] [facility] [address] [id number] [place] [address]- 3836 Aug, [facility] [place] [facility] [address] [facility] [id number] [place] [address]- 0196 08 Aug, 2011 [facility] [place] [facility] [address] [id number] [place] [address]- 6299 06 Aug, 2011 [facility] [place] [facility] [address] [id number] [place] [address]- 3783 28 Jul, 2011 [facility] [place] [facility] [address] [facility] [id number] [place] [address]- 0756 22 Jul, 2011 [facility] [place] [facility] [address] [facility] [id number] [place] [address]- 1181 16 Jul, 2011 [facility] [place] [facility] [address] [id number] [place] [address]- 4466 15 Jul, 2011 [facility] [place] [facility] [address] [facility] [id number] [place] [address]- 0593 14 Jul, 2011 [facility] [place] [facility] [address] [facility] [id number] [place] [address]- 3533 10 Jul, 2011 [facility] [place] [facility] [address] [facility] [id number] [place] [address]- 8287 Jun, [facility] [place] [facility] [address] [facility] [id number] [place] [address]- 3024 Jun, [facility] [place] [facility] [address] [facility] [id number] [place] [address]- 0963 Jun, [facility] [place] [facility] [address] [facility] [id number] [place] [address]- 3879 Jun, [facility] [place] [facility] [address] [facility] [id number] [place] [address]- 4452 Jun, [facility] [place] [facility] [address] [id number] [place] [address]- 5976 27 May, 2011 [facility] [place] [facility] [address] [id number] [place] [address]- 5405 May, [facility] [place] [facility] [address] [id number] [place] [address]- 1316 14 May, 2011 [facility] [place] [facility] [address] [id number] [place] [address]- 9169 14 May, 2011 [facility] [place] [facility] [address] [id number] [place] [address]- 6823 12 May, 2011 [facility] [place] [facility] [address] [id number] [place] [address]- 8644 07 May, 2011 [facility] [place] [facility] [address] [id number] [place] [address]- 0580 05 May, 2011 [facility] [place] [facility] [address] [id number] [place] [address]- 6362 15 Apr, 2011 [facility] [place] [facility] [address] [id number] [place] [address]- 0080 15 Apr, 2011 [facility] [place] [facility] [address] [id number] [place] [address]- 0364 07 Apr, 2011 [facility] [place] [facility] [address] [facility] [id number] [place] [address]- 9837 Apr, [facility] [place] [facility] [address] [id number] [place] [address]- 3227 Apr, [facility] [place] [facility] [address] [id number] [place] [address]- 9114 Apr, [facility] [place] [facility] [address] [id number] [place] [address]- 6715 Mar, [facility] [place] [facility] [address] [id number] [place] [address]- 9755 Mar, [facility] [place] [facility] [address] [id number] [place] [address]- 2300 Mar, [facility] [place] [facility] [address] [id number] [place] [address]- 5950 Mar, [facility] [place] [facility] [address] [id number] [place] [address]- 6562 Jan, [facility] [place] [facility] [address] [id number] [place] [address] Dec, [facility] [place] [facility] [address] [id number] [place] [address] Dec, [facility] [place] [facility] [address] [id number] [place] [address] October, [facility] [place] [facility] [address] [id number] [place] [address] Sep, [facility] [place] [facility] [address] [id number] [place] [address] Sep, [facility] [place] [facility] [address] [id number] [place] [address] Jul, [facility] [place] [facility] [address] [id number] [place] [address] Jul, [facility] [place] [facility] [address] [id number] [place] [address] May, [facility] [place] [facility] [address] [id number] [place] [address] May, [facility] [place] [facility] [address] [id number] [place] [address] May, [facility] [place] [facility] [address] [id number] [place] [address] May, [facility] [place] [facility] [address] [id number] [place] [address] Apr, [facility] [place] [facility] [address] [id number] [place] [address] Apr, [facility] [place] [facility] [address] [id number] [place] [address] 18 Apr, 2010 [facility] [place] [facility] [address] [id number] [place] [address] 18 Apr, 2010 [facility] [place] [facility] [address] [id number] [place] [address] Apr, [facility] [place] [facility] [address] [id number] [place] [address] 21 Mar, 2010 [facility] [place] [facility] [address] [id number] [place] [address] 14 Mar, 2010 [facility] [place] [facility] [address] [id number] [place] [address] 13 Mar, 2010 [facility] [place] [facility] [address] [id number] [place] [address] Mar, [facility] [place] [facility] [address] [id number] [place] [address] Jan, [facility] [place] [facility] [address] [id number] [place] [address] 15 Dec, 2009 [facility] [place] [facility] [address] [id number] [place] [address] 10 Sep, 2009 [facility] [place] [facility] [address] [facility] [id number] [place] [address] 08 May, 2009 [facility] [place] [facility] [address] [id number] [place] [address] 06 May, 2009 [facility] [place] [facility] [address] [id number] [place] [address] May, [facility] [place] [facility] [address] [id number] [place] [address] 17 Apr, 2009 [facility] [place] [facility] [address] [facility] [id number] [place] [address] 17 Apr, 2009 [facility] [place] [facility] [address] [id number] [place] [address] Apr, [facility] [address] [facility] [id number] [place] [address] Apr, [facility] [address] [id number] [address] Apr, [facility] [address] [id number], [place] [address] Mar, [facility] [address] [id number], [place] [address] Mar, [facility] [address] [facility] [id number], [place] [address] Jul, IMMUNIZATIONS No Known Immunizations SOCIAL HISTORY [...] surgery the January before. 03/2018 Hospitalization History Cellulitis-[facility] 12/20/15 Hospitalization History ED [place]- Abd pain 03/07/2017 Hospitalization History ED [place]- Abd pain 03/14/2017 Hospitalization History ED [place]- No bowel movement, rash 04/13/2017 Hospitalization History ED [place]- Abd pain r/t kidney surgery on 04/17/2017 Hospitalization History ED [place]- Abd pain r/t kidney surgery on 04/18/2017 Hospitalization History ED [place]- Lower abd pain 04/30/2017 Hospitalization History [facility]- Cannot urinate 05/30/2017 Hospitalization History [facility]- Pancreatitis Sx 06/29/2017 Hospitalization History ED [place]- Stomach pain 07/22/2017 Hospitalization History [facility]- Left side pain 08/12/2017 Hospitalization History [facility]- Incision site infection 08/30/2017 Hospitalization History [facility]- Post Op Seroma/Hematoma Left Abdomen. Discharged 09/04/17- Dr Daniel 09/02/2017 Hospitalization History [facility]- Right shoulder and back pain 2017 Hospitalization History [facility]- Shoulder/Back pain 11/11/2017 Hospitalization History [facility]- Right shoulder blade pain 12/04/2017 Hospitalization History [facility]- C-Diff 12/13/2017 Hospitalization History C diff et MRSA 12/27/2017
--- OUTSIDE RECORDS SUMMARY | 2018-04-29 10:34 | XMS REPORT ---
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 Name Role Phone SAICORTNEY KOENIGHANY Unavailable PROBLEMS Type Condition ICD9-CM Code NUH84-RK Code Onset Dates Condition Status SNOMED Code Problem Polydipsia R63.1 Active 19963155 Problem Trichotillomania F63.3 Active 88161486 Problem Atelectasis J98.11 Active 54472607 Problem Intestinal malabsorption, unspecified K90.9 Active 90885613 Problem Chronic fatigue R53.82 Active 34526180 Problem Generalized social phobia F40.11 Active 19538832 Problem Restless leg syndrome G25.81 Active 95787498 Problem Moderate episode of recurrent major depressive disorder F33.1 Active 321955139 Problem Chronic post-traumatic stress disorder (PTSD) F43.12 Active 647563299 Problem History of renal cell carcinoma Z85.528 Active 951124025 Problem Chronic tension-type headache, intractable G44.221 Active 828712128 Problem Nodule of left lung R91.1 Active 432625759 Problem Hirsuties L68.0 Active 804607205 Problem FH: polycystic ovary Z84.2 Active 498046030 Problem Morbid (severe) obesity due to excess calories E66.01 Active 576633878 Problem Chronic pancreatitis K86.1 Active 420008510 Problem Hyperlipidemia, mixed E78.2 Active 268652603 Problem Asthma J45.909 Active 428551064 ALLERGIES Substance Reaction Event Type Date Status Vancomycin HCl itching Drug Allergy Jan, Active Penicillin V Potassium Unknown Drug Allergy Jan, Active Fentanyl Unknown Drug Allergy Jan, Active Demerol Unknown Drug Allergy Jan, Active ENCOUNTERS Encounter Location Date Diagnosis [facility] [address] [facility] [id number] [place] [address] Mar, [facility] [address], [place] [address] Feb, [facility] [address] [id number] [place] [address] 54957- 5384 Jan, Acute pain of right knee M25.561 ; Right upper quadrant abdominal pain R10.11 and BMI 45.0-49.9, adult Z68.42 [place] [id number] [place] [address] 76424- 0903 Jan, [facility] [id number] [place] [address] 70887- 1692 Jan, [place] [id number] [place] [address] 94521- 5216 Dec, [facility] [id number] [place] [address] 93421- 8967 Dec, Intestinal malabsorption, unspecified K90.9 and Diarrhea, unspecified R19.7 [facility] [id number] [place] [address] 58989- 5569 Dec, [facility] [id number] [place] [address] 70278- 4409 Dec, Strep throat J02.0 ; Intestinal malabsorption, unspecified K90.9 ; Diarrhea, unspecified R19.7 ; Postoperative seroma involving digestive system after non-digestive system procedure K91.873 ; Hyperlipidemia, mixed E78.2 and BMI 45.0-49.9, adult Z68.42 [facility] [id number] [place] [address] 46307- 2959 Dec, [facility] [id number] [place] [address] 61626- 1913 Dec, Nausea R11.0 [facility] [id number] [place] [address] 47342- 8109 Dec, [facility] [id number] [place] [address] 58657 -1178 17 Harshad, 2018 Sore throat J02.9 ; Strep throat J02.0 and BMI 45.0-49.9, adult Z68.42 [facility] [id number] [place] [address] 3718 Dec, [facility] [address] [facility] [id number] [place] [address] 4751 Dec, [facility] [id number] [place] [address]- 1075 Dec, [facility] [address] [facility] [id number] [place] [address]- 2935 Dec, [facility] [id number] [place] [address]- 2173 Dec, [facility] [address], [place] [address] 6943 Dec, [facility] [address] [place] [address]- 2379 Dec, [facility] [address], [place] [address]- 4405 Dec, [facility] [address], [place] [address]- 9774 Dec, Clostridium difficile colitis A04.72 ; Intractable vomiting with nausea, unspecified vomiting type R11.2 and BMI 45.0-49.9, adult Z68.42 [facility] [address], [place] [address] 8383 Dec, [facility] [address], [place] [address]- 6755 Nov, [facility] [address], [place] [address]- 0226 Nov, [facility] [address], [place] [address]- 6299 Nov, [facility] [address], [place] [address]- 3482 Nov, [facility] [id number] [place] [address] 32803 -2701 Nov, [place] [id number] [place] [address] 00153- 3231 Nov, Hyperlipidemia, mixed E78.2 [facility] [id number] [place] [address] 65845 -3875 Nov, Acute suppurative otitis media of right ear without spontaneous rupture of tympanic membrane, recurrence not specified H66.001 and BMI 45.0-49.9, adult Z68.42 [place] [address] 03527- 0863 Nov, Hyperlipidemia, mixed E78.2 [place] [id number] [place] [address] 05422- 4036 Nov, [place] [address] 63302- 8585 Nov, [facility] [id number] [place] [address] 23125- 3151 Nov, Nodule of left lung R91.1 [place] [id number] [place] [address] 06457- 9751 04 Nov, 2017 Medicare annual wellness visit, [...] adult Z68.42 and Encounter for immunization Z23 [facility] [id number] [place] [address] 00960- 2515 October, [address] [place] [address] 9509 October, Nodule of left lung R91.1 [place] [address] 58381- 7837 October, Nodule of left lung R91.1 [place] [id number] [place] [address] 59350- 8434 October, Recurrent major depressive disorder, in partial remission F33.41 ; Restless leg syndrome G25.81 ; Generalized social phobia F40.11 ; Chronic post-traumatic stress disorder (PTSD) F43.12 ; BMI 45.0-49.9, adult Z68.42 and Trichotillomania F63.3 [place] [address] 58278- 2743 October, [facility] [id number] [place] [address] 69614- 1420 Sep, Chronic fatigue R53.82 and BMI 45.0-49.9, adult Z68.42 [place] [id number] [place] [address] 45731- 7461 Aug, [place] [address] 52592- 8490 Jul, Restless leg syndrome G25.81 and B12 deficiency E53.8 [place] [id number] [place] [address] 66730- 5423 Jul, [facility] [id number] [place] [address] 66402- 7460 Jul, [facility] [id number] [place] [address] 61928- 5093 Jun, [facility] [id number] [place] [address] 64469- 8014 Jun, Fatigue, unspecified type R53.83 ; History of renal cell carcinoma Z85.528 ; Chronic pancreatitis K86.1 ; Restless leg syndrome G25.81 ; Dark urine R82.99 and BMI 45.0-49.9, adult Z68.42 [place] [address], [place] [address]- 0314 Jun, [facility] [address], [place] [address]- 3987 Jun, [place] [id number] [place] [address] 32501- 7702 Jun, [facility] [id number] [place] [address] 36441- 6758 Jun, [facility] [place] [id number] [place] [address] 43495- 1323 May, Chronic post-traumatic stress disorder (PTSD) F43.12 ; Moderate episode of recurrent major depressive disorder F33.1 ; Trichotillomania F63.3 and Generalized social phobia F40.11 [place] [id number] [place] [address] 41267- 5414 May, [place] [address], [place] [address]- 5125 May, Chronic post-traumatic stress disorder (PTSD) F43.12 ; Moderate episode of recurrent major depressive disorder F33.1 ; Trichotillomania F63.3 and Generalized social phobia F40.11 [place] [address], [place] [address]- 6321 May, Hyperlipidemia, mixed E78.2 ; Morbid (severe) obesity due to excess calories E66.01 ; Chronic post-traumatic stress disorder (PTSD) F43.12 ; Moderate episode of recurrent major depressive disorder F33.1 ; Trichotillomania F63.3 and Generalized social phobia F40.11 [place] [address], [place] [address]- 7574 Apr, [place] [address], [place] [address]- 8511 Apr, Hyperlipidemia, mixed E78.2 ; Morbid (severe) obesity due to excess calories E66.01 ; Chronic post-traumatic stress disorder (PTSD) F43.12 ; Moderate episode of recurrent major depressive disorder F33.1 ; Trichotillomania F63.3 and Generalized social phobia F40.11 [facility] [id number] [place] [address] 04133- 7132 Apr, Trichotillomania F63.3 ; Generalized social phobia F40.11 ; Chronic post-traumatic stress disorder (PTSD) F43.12 and Moderate episode of recurrent major depressive disorder F33.1 [place] [id number] [place] [address] 29402- 7562 Apr, [place] [address] 47137- 6516 Apr, [place] [id number] [place] [address] 31120- 7995 Mar, Moderate episode of recurrent major depressive disorder F33.1 ; Trichotillomania F63.3 ; Chronic post-traumatic stress disorder (PTSD) F43.12 ; Generalized social phobia F40.11 and Restless leg syndrome G25.81 [place] [id number] [place] [address] 96848- 6609 Mar, [facility] [id number] [place] [address] 45128- 3644 Mar, [place] [id number] [place] [address] 38523- 9310 Feb, Left kidney mass N28.89 [facility] [id number] [place] [address] 00498- 1786 Jan, [place] [id number] [place] [address] 67140- 6031 Dec, Polydipsia R63.1 ; Chronic pancreatitis K86.1 and Fatigue, unspecified type R53.83 [place] [address] 13302- 6531 Nov, [facility] [id number] [place] [address] 81230- 6895 Nov, [facility] [id number] [place] [address] 29906- 0962 Nov, Headache around the eyes R51 [facility] [id number] [place] [address] 64570- 1600 Nov, [facility] [id number] [place] [address] 50920- 5908 October, STD exposure Z20.2 [facility] [address] 60412- 3497 October, STD exposure Z20.2 [facility] [id number] [place] [address] 93661- 2671 October, Chronic post-traumatic stress disorder (PTSD) F43.12 ; Generalized social phobia F40.11 ; Trichotillomania F63.3 and Restless leg syndrome G25.81 [facility] [id number] [place] [address] 59910- 2344 October, [facility] [id number] [place] [address] 49525- 2295 Sep, [facility] [id number] [place] [address] 04248- 2615 Aug, [facility] [id number] [place] [address] 67128- 7960 Aug, [facility] [id number] [place] [address] 74002- 4633 Aug, Neck mass R22.1 [facility] [id number] [place] [address] 84470- 1074 Aug, Atelectasis J98.11 [facility] [id number] [place] [address] 87634- 4355 28 Feb, 2017 Hyperlipidemia, mixed E78.2 ; Atypical pneumonia J18.9 and Neck mass R22.1 [place] [id number] [place] [address] 42259- 9795 15 Jul, 2016 Hemoptysis R04.2 [place] [id number] [place] [address] 69211- 0541 08 Jul, 2016 Acute non-recurrent pansinusitis J01.40 ; Hemoptysis R04.2 ; Polydipsia R63.1 and Malaise R53.81 [facility] [place] [id number] [place] [address] 17095 -9704 May, Other viral agents as the cause of diseases classified elsewhere B97.89 and Acute upper respiratory infection, unspecified J06.9 [facility] [place] [id number] [place] [address] 49784 -6906 Mar, Nausea R11.0 [facility] IN [address] 35556 -6763 28 Dec, 2015 Hives L50.[address] 64499- 2303 14 Dec, 2015 [facility] [place] [id number] [place] [address] 37774 -1753 Dec, Cutaneous abscess of limb, unspecified L02.419 ; Cellulitis of unspecified part of limb L03.119 ; Encounter for incision and drainage procedure Z01.89 and Encounter for recheck of abscess following incision and drainage Z09 [facility] [place] [id number] [place] [address] 46918 -5591 09 Dec, 2015 Abscess of leg, right L02.[address] 54734- 1717 08 Dec, 2015 Cellulitis of unspecified part of limb L03.119 and Cutaneous abscess of limb, unspecified L02.[address] 32142- 1310 Dec, [facility] [id number] [place] [address] 74825- 7172 Dec, [facility] [id number] [place] [address] 40060 -9949 Aug, [facility] [id number] [place] [address] 28567- 3073 Aug, [facility] [id number] [place] [address] 63870 -6466 Jul, Pain in unspecified wrist M25.539 and Back pain, thoracic M54.6 [facility] [place] [id number] [place] [address] 48279 -2549 Jun, Strain of right wrist, initial encounter S66.911A [place] [id number] [place] [address] 45116- 3536 Jun, Chronic pancreatitis, unspecified pancreatitis type K86.1 ; Hirsuties L68.0 ; Morbid (severe) obesity due to excess calories E66.01 ; Chronic pancreatitis K86.1 and Asthma J45.909 [place] [id number] [place] [address] 83533- 6808 May, [place] [id number] [place] [address] 94759- 8709 May, Hyperlipidemia, mixed E78.2 and Muscle spasm of back M62.830 [place] [id number] [place] [address] 94572- 9172 30 Apr, 2015 [place] [id number] [place] [address] 08594- 1699 Apr, Torticollis M43.6 [place] [id number] [place] [address] 26900- 1422 09 Apr, 2015 Right-sided thoracic back pain M54.6 [place] [id number] [place] [address] 58539- 0447 Mar, Rash R21 [facility] [address], [place] [address]- 4128 Mar, [facility] [id number] [place] [address] 370272- 6162 Jan, [facility] [id number] [place] [address] 16541- 5088 Dec, [facility] [id number] [place] [address] 316416- 4206 Dec, Urinary frequency 788.41 and Nocturia more than twice per night 788.43 [facility] [id number] [place] [address] 10758- 6200 Nov, [facility] [id number] [place] [address] 12554- 2748 Nov, [facility] [id number] [place] [address] 35956- 6137 Nov, Abdominal pain 789.00 [facility] [address] [place] [address] 61803- 6970 October, TDAP DX V06.1 [facility] [id number] [place] [address] 71298- 6130 October, [facility] [id number] [place] [address] 72137- 8847 October, Disturbance of skin sensation 782.0 ; Wrist pain, right 719.43 ; Hyperlipidemia 272.4 and Skin lesion of face 709.9 [facility] [address], [place] [address]- 7708 Sep, [facility] [id number] [place] [address] 297524- 8486 Sep, [facility] [address]- 8196 Aug, [facility] [address] [place] [address] [place] [address]- 5484 26 Aug, 2014 [facility] [place] [facility] [address] [id number] [place] [address]- 8856 23 Aug, 2014 [facility] [place] [facility] [address] [id number] [place] [address]- 6841 23 Aug, 2014 [facility] [place] [facility] [address] [id number] [place] [address]- 7250 16 Aug, 2014 [facility] [place] [facility] [address] [id number] [place] [address]- 1055 16 Aug, 2014 [facility] [place] [facility] [address] [id number] [place] [address]- 7975 14 Aug, 2014 [facility] [place] [facility] [address] [id number] [place] [address]- 7799 14 Aug, 2014 [facility] [place] [facility] [address] [id number] [place] [address]- 8685 11 Aug, 2014 [facility] [place] [facility] [address] [id number] [place] [address]- 1455 11 Aug, 2014 [facility] [place] [facility] [address] [id number] [place] [address]- 7828 04 Aug, 2014 [facility] [place] [facility] [address] [id number] [place] [address]- 2312 04 Aug, 2014 [facility] [place] [facility] [address] [id number] [place] [address]- 9915 Aug, [facility] [place] [facility] [address] [id number] [place] [address]- 6581 Aug, [facility] [place] [facility] [address] [id number] [place] [address]- 7130 Jul, 2014 [facility] [place] [facility] [address] [id number] [place] [address]- 4756 23 Jul, 2014 [facility] [place] [facility] [address] [id number] [place] [address]- 3622 13 Jul, 2014 [facility] [place] [facility] [address] [id number] [place] [address]- 7973 Jul, 2014 [facility] [place] [facility] [address] [id number] [place] [address]- 0893 Jul, [facility] [place] [facility] [address] [id number] [place] [address]- 1131 Jul, [facility] [place] [facility] [address] [id number] [place] [address]- 1678 Jun, [facility] [place] [facility] [address] [id number] [place] [address]- 9680 Jun, [facility] [place] [facility] [address] [id number] [place] [address]- 5816 Jun, [facility] [place] [facility] [address] [facility] [id number] [place] [address]- 8278 Jun, [facility] [place] [facility] [address] [id number], [place] [address]- 5013 Jun, [facility] [place] [facility] [address] [id number] [place] [address]- 9368 Jun, [facility] [place] [facility] [address] [facility] [id number], [place] [address]- 1950 Jun, [facility] [place] [facility] [address] [id number], [place] [address]- 0269 Jun, [facility] [place] [facility] [address] [id number], [place] [address]- 2348 May, [facility] [place] [facility] [address] [id number] [place] [address]- 4322 May, [facility] [place] [facility] [address] [id number], [place] [address]- 5320 May, [facility] [place] [facility] [address] [facility] [id number], [place] [address]- 5061 May, [facility] [place] [facility] [address] [id number] [place] [address]- 5190 15 May, 2014 [facility] [place] [facility] [address] [id number] [place] [address]- 9880 May, [facility] [place] [facility] [address] [id number] [place] [address]- 2246 May, [facility] [place] [facility] [address] [id number] [place] [address]- 5074 May, [facility] [place] [facility] [address] [id number] [place] [address]- 1666 May, [facility] [place] [facility] [address] [id number] [place] [address]- 5263 May, [facility] [place] [facility] [address] [id number] [place] [address]- 0051 May, [facility] [place] [facility] [address] [id number] [place] [address]- 5577 May, [facility] [place] [facility] [address] [id number] [place] [address]- 2277 Apr, [facility] [place] [facility] [address] [id number] [place] [address]- 8980 Apr, [facility] [place] [facility] [address] [id number] [place] [address]- 4302 Apr, [facility] [place] [facility] [address] [id number] [place] [address] Apr, [facility] [place] [facility] [address] [id number] [place] [address] Apr, [facility] [place] [facility] [address] [id number] [place] [address] Apr, [facility] [place] [facility] [address] [id number] [place] [address] Apr, [facility] [place] [facility] [address] [id number] [place] [address] Apr, [facility] [place] [facility] [address] [id number] [place] [address] Apr, [facility] [place] [facility] [address] [id number] [place] [address] Apr, [facility] [place] [facility] [address] [id number] [place] [address] Apr, [facility] [place] [facility] [address] [id number] [place] [address]- [address] Apr, [facility] [place] [facility] [address] [id number] [place] [address] Mar, [facility] [place] [facility] [address] [id number] [place] [address] Mar, [facility] [place] [facility] [address] [id number] [place] [address]- [address] Mar, [facility] [place] [facility] [address] [id number] [place] [address]- [address] Mar, [facility] [place] [facility] [address] [id number] [place] [address] Feb, [facility] [place] [facility] [address] [id number] [place] [address] Feb, [facility] [place] [facility] [address] [id number] [place] [address] Feb, [facility] [place] [facility] [address] [id number] [place] [address]- [address] 05 Feb, 2013 [facility] [place] [facility] [address] [id number] [place] [address]- [address] 05 Feb, 2014 [facility] [place] [facility] [address] [id number] [place] [address] Feb, [facility] [place] [facility] [address] [id number] [place] [address] Jan, [facility] [place] [facility] [address] [id number] [place] [address] Jan, [facility] [place] [facility] [address] [id number] [place] [address]- [address] Jan, [facility] [place] [facility] [address] [id number] [place] [address]- [address] Jan, [facility] [place] [facility] [address] [id number] [place] [address] Jan, [facility] [place] [facility] [address] [id number] [place] [address]- [address] Jan, [facility] [place] [facility] [address] [id number] [place] [address] Jan, [facility] [place] [facility] [address] [id number] [place] [address] Jan, [facility] [place] [facility] [address] [id number] [place] [address] Jan, [facility] [place] [facility] [address] [id number] [place] [address] Jan, [facility] [place] [facility] [address] [id number] [place] [address] Jan, [facility] [place] [facility] [address] [id number] [place] [address] Jan, [facility] [place] [facility] [address] [id number] [place] [address] Jan, [facility] [place] [facility] [address] [id number] [place] [address] Jan, [facility] [place] [facility] [address] [id number] [place] [address] Dec, [facility] [place] [facility] [address] [id number] [place] [address] Dec, [facility] [place] [facility] [address] [id number] [place] [address]- 6094 Dec, [facility] [place] [facility] [address] [id number] [place] [address]21 Dec, [facility] [address] [id number] [place] [address]307 Nov, [facility] [place] [facility] [address] [id number] [place] [address] 76[address] Nov, [facility] [address] [id number] [place] [address] 6344 Nov, [facility] [place] [facility] [address] [id number] [place] [address] Nov, [facility] [address] [id number] [place] [address]- 3285 Nov, [facility] [address] [id number] [place] [address] 2916 October, [facility] [place] [facility] [address] [id number] [place] [address] 3984 October, [facility] [address] [id number] [place] [address] 7[address] October, [facility] [place] [facility] [address] [id number] [place] [address] 5816 October, [facility] [address] [id number] [place] [address]- 0734 October, [facility] [place] [facility] [address] [id number] [place] [address]- 3539 October, [facility] [place] [facility] [address] [id number] [place] [address]- 4725 October, [facility] [place] [facility] [address] [id number] [place] [address]- 2222 October, [facility] [place] [facility] [address] [id number] [place] [address]- 4411 October, [facility] [place] [facility] [address] [id number] [place] [address]- 4058 October, [facility] [address] [id number] [place] [address]- 9563 October, [facility] [place] [facility] [address] [id number] [place] [address]- 1618 October, [facility] [place] [facility] [address] [id number] [place] [address]- 0957 October, [facility] [place] [facility] [address] [id number] [place] [address]- 9236 October, [facility] [place] [facility] [address] [id number] [place] [address]- 3714 Sep, [facility] [place] [facility] [address] [id number] [place] [address]- 2666 Sep, [facility] [place] [facility] [address] [id number] [place] [address]- 4897 Sep, [facility] [place] [facility] [address] [id number] [place] [address]- 6634 Sep, [facility] [place] [facility] [address] [id number] [place] [address]- 5326 Sep, [facility] [place] [facility] [address] [id number] [place] [address]- 9825 Sep, [facility] [place] [facility] [address] [id number] [place] [address]- 4770 Sep, [facility] [place] [facility] [address] [id number] [place] [address]- 3906 Sep, [facility] [place] [facility] [address] [id number] [place] [address]- 5384 Sep, [facility] [place] [facility] [address] [id number] [place] [address]- 5665 Sep, [facility] [place] [facility] [address] [id number] [place] [address]- 7554 Sep, [facility] [place] [facility] [address] [id number] [place] [address]- 2446 Sep, [facility] [place] [facility] [address] [id number] [place] [address]- 1525 Sep, [facility] [place] [facility] [address] [id number] [place] [address]- 0634 Sep, [facility] [place] [facility] [address] [id number] [place] [address]- 1772 Sep, [facility] [place] [facility] [address] [id number] [place] [address]- 4533 Aug, [facility] [place] [facility] [address] [id number] [place] [address]- 6869 Aug, [facility] [place] [facility] [address] [id number] [place] [address]- 3232 Aug, [facility] [place] [facility] [address] [id number] [place] [address]- 3027 Aug, [facility] [place] [facility] [address] [id number] [place] [address]- 5244 Jul, [facility] [place] [facility] [address] [id number] [place] [address]- 0853 Jul, [facility] [place] [facility] [address] [id number] [place] [address]- 6210 Jul, [facility] [place] [facility] [address] [facility] [id number] [place] [address]- 3857 Jul, [facility] [place] [facility] [address] [id number] [place] [address]- 2700 Jun, [facility] [place] [facility] [address] [id number] [place] [address]- 7132 Jun, [facility] [place] [facility] [address] [id number] [place] [address]- 9403 Jun, [facility] [place] [facility] [address] [id number], [place] [address]- 2703 Jun, [facility] [place] [facility] [address] [id number] [place] [address]- 2322 10 Jun, 2013 [facility] [address] [id number] [place] [address]- 8352 10 Jun, 2013 [facility] [place] [facility] [address] [id number] [place] [address]- 2057 08 Jun, 2013 [facility] [place] [facility] [address] [id number] [place] [address]- 8102 Jun, [facility] [address] [id number] [place] [address]- 4564 20 May, 2013 [facility] [place] [facility] [address] [id number] [place] [address]- 8599 20 May, 2013 [facility] [address] [id number] [place] [address] 18 May, 2013 [facility] [address] [id number] [place] [address]- 0357 18 May, 2013 [facility] [address] [id number] [place] [address]- 6072 17 May, 2013 [facility] [place] [facility] [address] [id number] [place] [id number] 17 May, 2013 [facility] [place] [facility] [address] [id number] [place] [address] 17 May, 2013 [facility] [place] [facility] [address] [id number] [place] [address]- 3794 17 May, 2013 [facility] [place] [facility] [address] [id number] [place] [address]- 4094 16 May, 2013 [facility] [place] [facility] [address] [id number] [place] [address]- 0988 16 May, 2013 [facility] [place] [facility] [address] [id number] [place] [address]- 9210 14 May, 2013 [facility] [place] [facility] [address] [id number] [place] [address]- 2841 14 May, 2013 [facility] [address] [id number] [place] [address]- 7002 13 May, 2013 [facility] [place] [facility] [address] [id number] [place] [address]- 3275 13 May, 2013 [facility] [place] [facility] [address] [facility] [id number] [place] [address]130 12 May, 2013 [facility] [place] [facility] [address] [id number] [place] [address]- 9801 May, [facility] [place] [facility] [address] [id number] [place] [address]- 5078 May, [facility] [place] [facility] [address] [id number] [place] [address]- 2172 May, [facility] [place] [facility] [address] [id number] [place] [address]- 0199 Apr, [facility] [place] [facility] [address] [id number], [place] [address]- 4597 Apr, [facility] [place] [facility] [address] [id number] [place] [address]- 7987 Apr, [facility] [place] [facility] [address] [id number] [place] [address]- 9362 Apr, [facility] [place] [facility] [address] [id number], [place] [address]- 7138 Aug, [facility] [place] [facility] [address] [id number], [place] [address]- 7668 Aug, [facility] [place] [facility] [address] [id number], [place] [address]- 9115 06 Aug, 2012 [facility] [place] [facility] [address] [facility] [id number], [place] [address]- 4503 05 Aug, 2012 [facility] [place] [facility] [address] [facility] [id number], [place] [address]- 8504 Jul, [facility] [place] [facility] [address] [id number] [place] [address]- 5857 Jun, [facility] [address] [id number] [place] [address]- 3273 Jun, [facility] [address] [id number] [place] [address]- 0233 16 Jun, 2012 [facility] [address] [id number] [place] [address]- 6132 Jun, [facility] [address] [id number] [place] [address]- 2870 May, [facility] [address] [id number] [place] [address]- 9773 May, [facility] [address] [id number] [place] [address]- 2657 May, [facility] [address] [id number] [place] [address]- 1738 May, [facility] [address] [id number] [place] [address]- 0943 May, [facility] [address] [id number] [place] [address]- 8888 May, [facility] [address] [id number] [place] [address]- 3083 May, [facility] [address] [id number] [place] [address]- 2300 Apr, [facility] [address] [id number] [place] [address]- 9188 Apr, [facility] [address] [id number] [place] [address]- 5903 Apr, [facility] [address] [id number] [place] [address]- 8255 Apr, [facility] [address] [id number] [place] [address]- 9379 Apr, [facility] [place] [facility] [address] [id number] [place] [address]- 3018 Apr, [facility] [place] [facility] [address] [id number] [place]843 Apr, [facility] [place] [facility] [address] [id number] [place] [address]390 Mar, [facility] [place] [facility] [address] [id number] [place] [address]- 0043 Mar, [facility] [place] [facility] [address] [id number] [place] [address] Mar, [facility] [place] [facility] [address] [id number] [place] [address]- 4386 Mar, [facility] [place] [facility] [address] [id number] [place] [address]- 7807 Mar, [facility] [place] [facility] [address] [id number], [place] [address]- 4474 Mar, [facility] [place] [facility] [address] [id number], [place] [address]- 4091 Mar, [facility] [place] [facility] [address] [id number], [place] [address]- 7497 Mar, [facility] [place] [facility] [address] [facility] [id number], [place] [address]- 0028 Mar, [facility] [place] [facility] [address] [id number], [place] [address]- 1863 Mar, [facility] [place] [facility] [address] [id number], [place] [address]- 4187 Mar, [facility] [place] [facility] [address] [id number], [place] [address]- 7994 Mar, [facility] [place] [facility] [address] [facility] [id number], [place] [address]- 5646 06 Feb, 2012 [facility] [place] [facility] [address] [id number], [place] [address]- 1631 Jan, [facility] [place] [facility] [address] [id number] [place] [address]- 7660 Jan, [facility] [place] [facility] [address] [id number] [place] [address]- 4176 Jan, [facility] [place] [facility] [address] [id number] [place] [address]- 4341 Jan, [facility] [place] [facility] [address] [id number] [place] [address]- 9753 Jan, [facility] [place] [facility] [address] [id number] [place] [address]- 6358 Dec, [facility] [place] [facility] [address] [id number] [place] [address]- 0632 Dec, [facility] [place] [facility] [address] [id number] [place] [address]- 2570 Nov, [facility] [place] [facility] [address] [id number] [place] [address]- 3993 Nov, [facility] [place] [facility] [address] [id number] [place] [address]- 2470 Nov, [facility] [place] [facility] [address] [id number] [place] [address]- 6109 October, [facility] [place] [facility] [address] [id number] [place] [address]- 3212 October, [facility] [place] [facility] [address] [id number] [place] [address]- 0733 October, [facility] [place] [facility] [address] [id number] [place] [address]- 8380 October, [facility] [place] [facility] [address] [id number] [place] [address]- 2749 October, [facility] [place] [facility] [address] [id number] [place] [address]- 9209 October, [facility] [place] [facility] [address] [id number] [place] [address]- 5092 October, [facility] [address] [id number] [place] [address]- 5234 Sep, [facility] [place] [facility] [address] [id number] [place] [address]- 2929 Sep, [facility] [address] [id number] [place] [address]- 8555 Sep, [facility] [address] [id number] [place] [address]- 4992 Sep, [facility] [address] [id number] [place] [address]- 5309 24 Sep, 2011 [facility] [address] [id number] [place] [address]- 1012 Sep, [facility] [address] [id number] [place] [address]- 5234 17 Sep, 2011 [facility] [address] [id number] [place] [address]- 3234 16 Sep, 2011 [facility] [address] [id number] [place] [address]- 3751 16 Sep, 2011 [facility] [address] [id number] [place] [address]- 7045 14 Sep, 2011 [facility] [place] [facility] [address] [id number] [place] [address]- 7963 13 Sep, 2011 [facility] [address] [id number] [place] [address]- 7081 10 Sep, 2011 [facility] [place] [facility] [address] [id number] [place] [address]- 5468 09 Sep, 2011 [facility] [place] [facility] [address] [id number] [place] [address]- 6266 27 Aug, 2011 [facility] [place] [facility] [address] [id number] [place] [address]- 5110 Aug, [facility] [place] [facility] [address] [id number] [place] [address]- 8129 08 Aug, 2011 [facility] [place] [facility] [address] [id number] [place] [address]- 6656 06 Aug, 2011 [facility] [place] [facility] [address] [id number] [place] [address]- 9788 28 Jul, 2011 [facility] [place] [facility] [address] [id number] [place] [address]- 2556 22 Jul, 2011 [facility] [place] [facility] [address] [id number] [place] [address]- 9841 16 Jul, 2011 [facility] [place] [facility] [address] [id number] [place] [address]- 8246 15 Jul, 2011 [facility] [place] [facility] [address] [id number] [place] [address]- 0101 14 Jul, 2011 [facility] [place] [facility] [address] [id number] [place] [address]- 2603 10 Jul, 2011 [facility] [place] [facility] [address] [id number] [place] [address]- 3600 Jun, [facility] [place] [facility] [address] [id number] [place] [address]- 8545 Jun, [facility] [place] [facility] [address] [id number] [place] [address]- 8165 Jun, [facility] [place] [facility] [address] [id number] [place] [address]- 1305 Jun, [facility] [place] [facility] [address] [id number] [place] [address]- 7876 Jun, [facility] [place] [facility] [address] [id number] [place] [address]- 6258 May, [facility] [place] [facility] [address] [id number] [place] [address]- 5639 May, [facility] [place] [facility] [address] [id number] [place] [address]- 3278 14 May, 2011 [facility] [place] [facility] [address] [id number] [place] [address]- 9418 14 May, 2011 [facility] [place] [facility] [address] [id number] [place] [address]- 7908 12 May, 2011 [facility] [place] [facility] [address] [id number] [place] [address]- 3210 07 May, 2011 [facility] [place] [facility] [address] [id number] [place] [address]- 8563 05 May, 2011 [facility] [place] [facility] [address] [id number] [place] [address]- 7367 15 Apr, 2011 [facility] [place] [facility] [address] [id number] [place] [address]- 2714 15 Apr, 2011 [facility] [place] [facility] [address] [id number] [place] [address]- 9943 Apr, [facility] [place] [facility] [address] [id number] [place] [address]- 4237 Apr, [facility] [place] [facility] [address] [id number] [place] [address]- 1845 Apr, [facility] [place] [facility] [address] [facility] [id number] [place] [address]- 8956 Apr, [facility] [place] [facility] [address] [id number] [place] [address]- 3998 Mar, [facility] [place] [facility] [address] [id number] [place] [address]- 4032 Mar, [facility] [place] [facility] [address] [id number] [place] [address]- 0145 Mar, [facility] [place] [facility] [address] [id number] [place] [address]- 4850 Mar, [facility] [place] [facility] [address] [id number] [place] [address]- 2246 Jan, [facility] [address] [id number] [place] [address]- 5705 Dec, [facility] [place] [facility] [address] [id number] [place] [address]- 7832 Dec, [facility] [place] [facility] [address] [id number] [place] [address]- 1270 October, [facility] [place] [facility] [address] [id number] [place] [address]- 2545 Sep, [facility] [address] [id number] [place] [address]- 8593 Sep, [facility] [place] [facility] [address] [id number] [place] [address]- 7989 17 Jul, 2010 [facility] [place] [facility] [address] [id number] [place] [address]- 0987 16 Jul, 2010 [facility] [address] [id number] [place] [address]- 9297 May, [facility] [place] [facility] [address] [id number] [place] [address] May, [facility] [place] [facility] [address] [id number] [place] [address] May, [facility] [place] [facility] [address] [id number] [place] [address] May, [facility] [place] [facility] [address] [id number] [place] [address] Apr, [facility] [place] [facility] [address] [id number] [place] [address] Apr, [facility] [place] [facility] [address] [id number] [place] [address] Apr, [facility] [place] [facility] [address] [id number] [place] [address] Apr, [facility] [place] [facility] [address] [id number] [place] [address] Apr, [facility] [place] [facility] [address] [id number] [place] [address] 21 Mar, 2010 [facility] [place] [facility] [address] [id number] [place] [address] 14 Mar, 2010 [facility] [place] [facility] [address] [id number] [place] [address] 13 Mar, 2010 [facility] [place] [facility] [address] [id number] [place] [address] 12 Mar, 2010 [facility] [place] [facility] [address] [id number] [place] [address] Jan, [facility] [place] [facility] [address] [id number] [place] [address] 15 Dec, 2009 [facility] [place] [facility] [address] [facility] [id number] [place] [address] 10 Sep, 2009 [facility] [place] [facility] [address] [id number] [place] [address] May, [facility] [place] [facility] [address] [id number] [place] [address] May, [facility] [place] [facility] [address] [facility] [id number] [place] [address] May, [facility] [place] [facility] [address] [facility] [id number] [place] [address] Apr, [facility] [place] [facility] [address] [id number], [place] [address] Apr, [facility] [place] [facility] [address] [id number] [place] [address] Apr, [facility] [place] [facility] [address] [facility] [id number] [place] [address] Apr, [facility] [place] [facility] [address] [facility] [id number][place] [address] Apr, [facility] [place] [facility] [address] [facility] [id number] [place] [address] Mar, [facility] [address] [facility] [id number], [place] [address] Mar, [facility] [address] [facility] [id number], [place] [address] Jul, IMMUNIZATIONS No Known Immunizations SOCIAL HISTORY Never Assessed REASON FOR VISIT Swelling(leg); also ER f/u for left side pain (02-04-18)-[facility] PLAN OF CARE Activity Details Follow Up 4 Weeks Reason:F/U ERCP and surgery VITAL SIGNS Height 62 in 2018-02-10 Weight 263.4 lbs 2018-02-10 Temperature 98 degrees Fahrenheit 2018-02-10 Heart Rate 82 bpm 2018-02-10 Respiratory Rate 20 2018-02-10 BMI 48.17 kg/m2 2018-02-10 Blood pressure systolic 130 mmHg 2018-02-10 Blood pressure diastolic 74 mmHg 2018-02-10 MEDICATIONS Medication Instructions Dosage Frequency Start Date End Date Duration Status Prozac 40 mg Orally Once a day for depression 1 capsules Active Estradiol 0.5 MG Orally Once a day 2 tablet by Oral route 1 time per day 24h Apr, Active Vitamin D 25284 UNIT Orally per day 1 capsule Not-Taking Ondansetron HCl 8 mg 1 tablet by Oral route every 8 hours PRN Jul, Active Ropinirole HCl 4 MG Orally Once a day 1 tablet before bedtime 24h 30 days Active Viokace 74759 UNIT Not-Taking Vitamin B 12 Active RESULTS Name Result Date Reference Range Xray : Knee, Right 3 views (IN HOUSE) 2018-02-10 PROCEDURES Procedure Date Ordered Result Body Site X-RAY EXAM OF KNEE, 3 Feb 10, 2018 [facility] VISIT ESTABLISHED PATIENT Feb 10, 2018 INSTRUCTIONS MEDICATIONS ADMINISTERED No Known Medications MEDICAL (GENERAL) HISTORY Type Description Date Medical History asthma Medical History gastrointestinal disorder- chronic pancreatitis, chronic constipation, gastritis Medical History chronic abdominal pain Medical History gynecologic disoder- ovarian cysts Medical History endrocrine disorder- PCOS, hirsutism Medical History neurological disorder- mild sleep apnea (Dr. Jlues), possible RLS Medical History headache syndrome [facility] [place]- Abd pain 03/07/2017 [facility] [place]- Abd pain 03/14/2017 [facility] History [facility] [place]- No bowel movement, rash 04/13/2017 Hospitalization History [facility] [place]- Abd pain r/t kidney surgery on 04/17/2017 Hospitalization History [facility] [place]- Abd pain r/t kidney surgery on 04/18/2017 [facility]ization History [facility] [place]- Lower abd pain 04/30/2017 [facility]ization [facility] [place]- Cannot urinate 05/30/2017 Hospitalization History [facility] [place]- Pancreatitis Sx 06/29/2017 [facility]ization [facility] [place]- Stomach pain 07/22/2017 [facility]ization [facility] [place]- Left side pain 08/12/2017 Hospitalization [facility] [place]- Incision site infection 08/30/2017 Hospitalization History [facility]- Post Op Seroma/Hematoma Left Abdomen. Discharged 09/04/17- Dr Daniel 09/02/2017 Hospitalization [facility] [place]- Right shoulder and back pain 2017 Hospitalization History [facility] [place]- Shoulder/Back pain 11/11/2017 [facility]ization [facility] [place]- Right shoulder blade pain 12/04/2017 Hospitalization History [facility] [place]- C-Diff 12/13/2017 Hospitalization History C diff et MRSA 12/27/2017
--- OUTSIDE RECORDS SUMMARY | 2018-04-29 10:35 | XMS REPORT ---
Author Author [facility] Address [address] [place] [address] Care Team Providers Care Critical Care Nurse Specialist Name Role Phone MARCIO GIBBSY Unavailable PROBLEMS Type Condition ICD9-CM Code [id number] Code Onset Dates Condition Status SNOMED Code Problem Polydipsia R63.1 Active 42464067 Problem Trichotillomania F63.3 Active 83310264 Problem Atelectasis J98.11 Active 96543215 Problem Intestinal malabsorption, unspecified K90.9 Active 66121331 Problem Chronic fatigue R53.82 Active 66058604 Problem Generalized social phobia F40.11 Active 72467104 Problem Restless leg syndrome G25.81 Active 12342554 Problem Moderate episode of recurrent major depressive disorder F33.1 Active 857285011 Problem Chronic post-traumatic stress disorder (PTSD) F43.12 Active 579558388 Problem History of renal cell carcinoma Z85.528 Active 000245597 Problem Chronic tension-type headache, intractable G44.221 Active 257499245 Problem Nodule of left lung R91.1 Active 029496100 Problem Hirsuties L68.0 Active 852181455 Problem FH: polycystic ovary Z84.2 Active 373470134 Problem Morbid (severe) obesity due to excess calories E66.01 Active 786286723 Problem Chronic pancreatitis K86.1 Active 583554793 Problem Hyperlipidemia, mixed E78.2 Active 273155524 Problem Asthma J45.909 Active 921402406 ALLERGIES No Information ENCOUNTERS Encounter Location Date Diagnosis [facility] [id number] [address] Mar, [facility] [id number] [address] 6[address] Feb, [facility] [id number] [address] 2889 Feb, [facility] [id number] [place] [address] 36052- 3300 Jan, Acute pain of right knee M25.561 ; Right upper quadrant abdominal pain R10.11 and BMI 45.0-49.9, adult Z68.42 [facility] [id number] [place] [address] 46051- 5573 Jan, [facility] [id number] [place] [address] 40447- 2312 Jan, [facility] [id number] [place] [address] 94688- 3804 Dec, [facility] [id number] [place] [address] 62612- 7245 Dec, Intestinal malabsorption, unspecified K90.9 and Diarrhea, unspecified R19.7 [facility] [id number] [place] [address] 05790- 4594 Dec, [facility] [id number] [place] [address] 06695- 6441 Dec, Strep throat J02.0 ; Intestinal malabsorption, unspecified K90.9 ; Diarrhea, unspecified R19.7 ; Postoperative seroma involving digestive system after non-digestive system procedure K91.873 ; Hyperlipidemia, mixed E78.2 and BMI 45.0-49.9, adult Z68.42 [facility] [id number] [place] [address] 22196- 1632 Dec, [facility] [id number] [place] [address] 70889- 2789 Dec, Nausea R11.0 [facility] [id number] [place] [address] 46940- 6234 Dec, [facility] [id number] [place] [address] 74577 -3508 Dec, Sore throat J02.9 ; Strep throat J02.0 and BMI 45.0-49.9, adult Z68.42 [facility] [address] [facility]NOTE [facility]] [id number] [place] [address] 2456 Dec, [facility] [address] [facility]] [id number] [place] [address]- 8584 Dec, [facility] [address] [facility]] [id number] [place] [address]- 9444 Dec, [facility] [address] [facility] [id number] [address] 30[address] Dec, [facility] [address] [facility]] [id number] [place] [address]- 7807 Dec, [facility] [address] [facility]] [id number] [place] [address]- 7498 Dec, [facility] [address], [place] [address] 7769 Dec, [facility] [id number], [place] [address] 5008 Dec, [facility] [id number], [place] [address] 4726 Dec, Clostridium difficile colitis A04.72 ; Intractable vomiting with nausea, unspecified vomiting type R11.2 and BMI 45.0-49.9, adult Z68.42 [facility] [address], [place] [address] 7100 Dec, [facility] [id number], [place] [address] 0203 Nov, [facility] [id number] [address] 2384 Nov, [facility] [id number], [place] [address]- 1796 Nov, [facility] [id number] [address] 7951 Nov, [facility] [address] [address] Nov, [place] [id number] [place] [address] 02540- 6930 Nov, Hyperlipidemia, mixed E78.2 [facility] [id number] [place] [address] 28118 -1678 Nov, Acute suppurative otitis media of right ear without spontaneous rupture of tympanic membrane, recurrence not specified H66.001 and BMI 45.0-49.9, adult Z68.42 [facility] [place] [id number] [place] [address] 99973- 8080 Nov, Hyperlipidemia, mixed E78.2 [facility] [id number] [place] [address] 00699- 4459 Nov, [place] [address] 66263- 4374 Nov, [facility] [id number] [place] [address] 55699- 8516 Nov, Nodule of left lung R91.1 [id number] [place] [address] 35246- 7216 Nov, Medicare annual wellness visit, initial Z00.00 [...] adult Z68.42 and Encounter for immunization Z23 [place] [id number] [place] [address] 80391- 0380 October, [place] [address] 02128- 1108 October, Nodule of left lung R91.1 [facility] [id number] [place] [address] 70174- 9765 October, Nodule of left lung R91.1 [facility] [id number] [place] [address] 26374- 5181 October, Recurrent major depressive disorder, in partial remission F33.41 ; Restless leg syndrome G25.81 ; Generalized social phobia F40.11 ; Chronic post-traumatic stress disorder (PTSD) F43.12 ; BMI 45.0-49.9, adult Z68.42 and Trichotillomania F63.3 [place] [id number] [place] [address] 58441- 9299 October, [facility] [id number] [place] [address] 96936- 5918 Sep, Chronic fatigue R53.82 and BMI 45.0-49.9, adult Z68.42 [facility] [id number] [place] [address] 34179- 9357 Aug, [facility] [id number] [place] [address] 27592- 8023 Jul, Restless leg syndrome G25.81 and B12 deficiency E53.8 [place] [id number] [place] [address] 97326- 0552 Jul, [facility] [facility] [id number] [place] [address] 94274- 9685 Jul, [place] [id number] [place] [address] 89024- 3776 Jun, [facility] [id number] [place] [address] 59480- 7377 Jun, Fatigue, unspecified type R53.83 ; History of renal cell carcinoma Z85.528 ; Chronic pancreatitis K86.1 ; Restless leg syndrome G25.81 ; Dark urine R82.99 and BMI 45.0-49.9, adult Z68.42 [place], [place] [address] 7759 Jun, [facility] [address], [place] [address]- 8640 Jun, [facility] [address], [place] [address]- 8369 Jun, [facility] [id number] [place] [address] 79493- 1495 Jun, [facility] [address], [place] [address]- 2603 May, Chronic post-traumatic stress disorder (PTSD) F43.12 ; Moderate episode of recurrent major depressive disorder F33.1 ; Trichotillomania F63.3 and Generalized social phobia F40.11 [place] [id number] [place] [address] 04145- 7582 May, [place] [address], [place] [address]- 3479 May, Chronic post-traumatic stress disorder (PTSD) F43.12 ; Moderate episode of recurrent major depressive disorder F33.1 ; Trichotillomania F63.3 and Generalized social phobia F40.11 [place] [address], [place] [address]- 6310 May, Hyperlipidemia, mixed E78.2 ; Morbid (severe) obesity due to excess calories E66.01 ; Chronic post-traumatic stress disorder (PTSD) F43.12 ; Moderate episode of recurrent major depressive disorder F33.1 ; Trichotillomania F63.3 and Generalized social phobia F40.11 [place] [address], [place] [address]- 3495 Apr, [place] [address], [place] [address]- 1241 Apr, Hyperlipidemia, mixed E78.2 ; Morbid (severe) obesity due to excess calories E66.01 ; Chronic post-traumatic stress disorder (PTSD) F43.12 ; Moderate episode of recurrent major depressive disorder F33.1 ; Trichotillomania F63.3 and Generalized social phobia F40.11 [place] [id number] [place] [address] 10246- 7527 Apr, Trichotillomania F63.3 ; Generalized social phobia F40.11 ; Chronic post-traumatic stress disorder (PTSD) F43.12 and Moderate episode of recurrent major depressive disorder F33.1 [place] [id number] [place] [address] 92064- 5372 Apr, [place] [address] 70246- 3745 Apr, [place] [id number] [place] [address] 95884- 6966 Mar, Moderate episode of recurrent major depressive disorder F33.1 ; Trichotillomania F63.3 ; Chronic post-traumatic stress disorder (PTSD) F43.12 ; Generalized social phobia F40.11 and Restless leg syndrome G25.81 [place] [address] 99566- 4416 Mar, [place] [id number] [place] [address] 60785- 3916 Mar, [facility] [id number] [place] [address] 30259- 9450 Feb, Left kidney mass N28.89 [place] [id number] [place] [address] 69474- 6433 Jan, [place] [address] 39310- 2356 Dec, Polydipsia R63.1 ; Chronic pancreatitis K86.1 and Fatigue, unspecified type R53.83 [place] [id number] [place] [address] 75688- 4814 Nov, [place] [address], [place] [address]- 4754 13 Nov, 2016 [facility] [id number] [place] [address] 59287- 7025 Nov, Headache around the eyes R51 [facility] [id number] [place] [address] 95334- 6695 Nov, [facility] [id number] [place] [address] 77980- 7448 October, STD exposure Z20.2 [facility] [id number] [place] [address] 60934- 8233 October, STD exposure Z20.2 [facility] [id number] [place] [address] 14295- 8459 October, Chronic post-traumatic stress disorder (PTSD) F43.12 ; Generalized social phobia F40.11 ; Trichotillomania F63.3 and Restless leg syndrome G25.81 [facility] [id number] [place] [address] 01999- 2796 October, [facility] [id number] [place] [address] 01090- 2084 Sep, [facility] [id number] [place] [address] 60843- 3642 Aug, [facility] [id number] [place] [address] 03216- 2927 Aug, [facility] [id number] [place] [address] 40457- 4915 Aug, Neck mass R22.1 [facility] [id number] [place] [address] 89882- 7500 Aug, Atelectasis J98.11 [facility] [id number] [place] [address] 99039- 5101 28 Jul, 2016 Hyperlipidemia, mixed E78.2 ; Atypical pneumonia J18.9 and Neck mass R22.1 [place] [id number] [place] [address] 69234- 3906 15 Jul, 2016 Hemoptysis R04.2 [place] [id number] [place] [address] 41606- 4570 08 Jul, 2016 Acute non-recurrent pansinusitis J01.40 ; Hemoptysis R04.2 ; Polydipsia R63.1 and Malaise R53.81 [facility] [id number] [place] [address] 84802 -1345 May, Other viral agents as the cause of diseases classified elsewhere B97.89 and Acute upper respiratory infection, unspecified J06.9 [facility] [id number] [place] [address] 18223 -7782 Mar, Nausea R11.0 [facility] [id number] [place] [address] 93108 -5588 Dec, Hives L50.9 [place] [id number] [place] [address] 62643- 6486 Dec, [facility] [id number] [place] [address] 42185 -5313 Dec, Cutaneous abscess of limb, unspecified L02.419 ; Cellulitis of unspecified part of limb L03.119 ; Encounter for incision and drainage procedure Z01.89 and Encounter for recheck of abscess following incision and drainage Z09 [facility] [id number] [place] [address] 72033 -0938 09 Dec, 2015 Abscess of leg, right L02.415 [id number] [place] [address] 51417- 0401 Dec, Cellulitis of unspecified part of limb L03.119 and Cutaneous abscess of limb, unspecified L02.419 [id number] [place] [address] 15481- 5529 Dec, [place] [id number] [place] [address] 17094- 8787 Dec, [facility] [id number] [place] [address] 69972 -1599 Aug, [facility] [id number] [place] [address] 49528- 2714 Aug, [facility] [id number] [place] [address] 41232 -3603 04 Jul, 2015 Pain in unspecified wrist M25.539 and Back pain, thoracic M54.6 [facility] [place] [id number] [place] [address] 55865 -2838 Jun, Strain of right wrist, initial encounter S66.911A [place] [id number] [place] [address] 14661- 5219 11 Jun, 2015 Chronic pancreatitis, unspecified pancreatitis type K86.1 ; Hirsuties L68.0 ; Morbid (severe) obesity due to excess calories E66.01 ; Chronic pancreatitis K86.1 and Asthma J45.909 [place] [id number] [place] [address] 05141- 9185 May, [place] [id number] [place] [address] 56470- 9484 May, Hyperlipidemia, mixed E78.2 and Muscle spasm of back M62.830 [place] [id number] [place] [address] 17884- 2775 30 Apr, 2015 [place] [id number] [place] [address] 21921- 1424 16 Apr, 2015 Torticollis M43.6 [place] [id number] [place] [address] 90043- 8623 09 Apr, 2015 Right-sided thoracic back pain M54.6 [place] [id number] [place] [address] 02022- 2969 15 Mar, 2015 Rash R21 [place] [address], [place] [address]- 2781 Mar, [facility] [id number] [place] [address] 71678- 9765 Jan, [facility] [id number] [address]- 5662 Dec, [facility] [id number] [place] [address] 06208- 0266 Dec, Urinary frequency 788.41 and Nocturia more than twice per night 788.43 [facility] [id number] [place] [address] 34637- 9408 Nov, [facility] [id number] [place] [address] 60836- 5490 Nov, [facility] [id number] [place] [address] 20601- 0253 Nov, Abdominal pain 789.00 [facility] [id number] [place] [address] 62249- 1546 October, TDAP DX V06.1 [facility] [id number] [place] [address] 96759- 1516 October, [facility] [address], [place] [address]- 6969 October, Disturbance of skin sensation 782.0 ; Wrist pain, right 719.43 ; Hyperlipidemia 272.4 and Skin lesion of face 709.9 [facility] [address], [place] [address]- 3119 Sep, [facility] [id number] [place] [address] 78871- 4583 Sep, [facility] [address], [place] [address]- 5402 Aug, [facility] [id number] [place] [address] 79749- 3467 Aug, [facility] [place] [facility] [address] [id number] [place] [address]- 4475 23 Aug, 2014 [facility] [place] [facility] [address] [id number] [place] [address]- 6437 23 Aug, 2014 [facility] [place] [facility] [address] [id number] [place] [address]- 5012 16 Aug, 2014 [facility] [place] [facility] [address] [id number] [place] [address]- 1094 16 Aug, 2014 [facility] [place] [facility] [address] [id number] [place] [address]- 4083 14 Aug, 2014 [facility] [place] [facility] [address] [id number] [place] [address]- 9069 14 Aug, 2014 [facility] [place] [facility] [address] [id number] [place] [address]- 3393 Aug, [facility] [place] [facility] [address] [id number] [place] [address]- 3136 Aug, [facility] [place] [facility] [address] [id number] [place] [address]- 5493 Aug, [facility] [place] [facility] [address] [id number] [place] [address]- 2080 Aug, [facility] [place] [facility] [address] [id number] [place] [address]- 2120 Aug, [facility] [place] [facility] [address] [id number] [address]- 6473 Aug, [facility] [place] [facility] [address] [id number] [place] [address]- 8246 Jul, [facility] [place] [facility] [address] [id number] [place] [address]- 5206 Jul, [facility] [place] [facility] [address] [id number] [place] [address]- 6442 Jul, [facility] [place] [facility] [address] [id number] [place] [address]- 9282 13 Jul, 2014 [facility] [address] [id number] [place] [address]- 2418 Jul, [facility] [place] [facility] [address] [id number] [place] [address]- 5456 Jul, [facility] [address] [id number] [place] [address]- 7258 Jun, [facility] [place] [facility] [address] [id number] [place] [address]- 1329 Jun, [facility] [address] [id number] [place] [address]- 2339 Jun, [facility] [place] [facility] [address] [id number] [place] [address]- 0521 Jun, [facility] [address] [id number] [place] [address]- 6680 Jun, [facility] [address] [id number] [place] [address]- 2278 Jun, [facility] [place] [facility] [address] [id number] [place] [address]- 0289 Jun, [facility] [address] [id number] [place] [address]- 3014 15 Jun, 2014 [facility] [place] [facility] [address] [id number] [place] [address]- 9968 May, [facility] [place] [facility] [address] [id number] [place] [address]- 9046 May, [facility] [place] [facility] [address] [id number] [place] [address]- 8526 18 May, 2014 [facility] [place] [facility] [address] [id number] [place] [address]- 3776 18 May, 2014 [facility] [place] [facility] [address] [id number] [place] [address]- 3079 May, [facility] [place] [facility] [address] [id number] [place] [address]- 6837 May, [facility] [place] [facility] [address] [id number] [place] [address]- 0982 May, [facility] [place] [facility] [address] [id number] [place] [address]- 0465 May, [facility] [place] [facility] [address] [id number] [place] [address]- 5609 May, [facility] [place] [facility] [address] [id number] [place] [address]- 4063 May, [facility] [place] [facility] [address] [id number] [place] [address]- 6915 May, [facility] [place] [facility] [address] [id number] [place] [address]- 3114 May, [facility] [place] [facility] [address] [id number] [place] [address]- 4357 Apr, [facility] [place] [facility] [address] [id number] [place] [address]- 3920 Apr, [facility] [place] [facility] [address] [id number] [place] [address]- 9423 Apr, [facility] [place] [facility] [address] [id number] [place] [address] Apr, [facility] [place] [facility] [address] [id number] [place] [address] Apr, [facility] [place] [facility] [address] [id number] [place] [address] Apr, [facility] [place] [facility] [address] [id number] [place] [address] Apr, [facility] [place] [facility] [address] [id number] [place] [address] Apr, [facility] [place] [facility] [address] [id number] [place] [address] Apr, [facility] [place] [facility] [address] [id number] [place] [address] Apr, [facility] [place] [facility] [address] [id number] [place] [address] Apr, [facility] [place] [facility] [address] [id number] [place] [address] Apr, [facility] [place] [facility] [address] [id number] [place] [address] Mar, [facility] [place] [facility] [address] [id number] [place] [address] Mar, [facility] [place] [facility] [address] [id number] [place] [address] Mar, [facility] [place] [facility] [address] [id number] [place] [address] Mar, [facility] [place] [facility] [address] [id number] [place] [address] 10 Feb, 2014 [facility] [place] [facility] [address] [id number] [place] [address] 10 Feb, 2014 [facility] [place] [facility] [address] [id number] [place] [address] 05 Feb, 2013 [facility] [place] [facility] [address] [id number] [place] [address] Feb, 2013 [facility] [place] [facility] [address] [id number] [place] [address] Feb, 2013 [facility] [place] [facility] [address] [id number] [place] [address] Feb, [facility] [place] [facility] [address] [id number] [place] [address] Jan, [facility] [place] [facility] [address] [id number] [place] [address] Jan, [facility] [place] [facility] [address] [id number] [place] [address] Jan, [facility] [place] [facility] [address] [id number] [place] [address] Jan, [facility] [place] [facility] [address] [id number] [place] [address] Jan, [facility] [place] [facility] [address] [id number] [place] [address]- [address] Jan, [facility] [place] [facility] [address] [id number] [place] [address] Jan, [facility] [place] [facility] [address] [id number] [place] [address] Jan, [facility] [place] [facility] [address] [id number] [place] [address] Jan, [facility] [place] [facility] [address] [id number] [place] [address] Jan, [facility] [place] [facility] [address] [id number] [place] [address] Jan, [facility] [place] [facility] [address] [id number] [place] [address] Jan, [facility] [place] [facility] [address] [id number] [place] [address] Jan, [facility] [place] [facility] [address] [id number] [place] [address] Jan, [facility] [place] [facility] [address] [id number] [place] [address] Dec, [facility] [place] [facility] [address] [id number] [place] [address] Dec, [facility] [place] [facility] [address] [id number] [place] [address] 9932 Dec, [facility] [place] [facility] [address] [id number] [place] [address] 0942 Dec, [facility] [place] [facility] [address] [id number] [place] [address] 65[address] Nov, [facility] [place] [facility] [address] [id number] [place] [address] 9241 Nov, [facility] [place] [facility] [address] [id number] [place] [address] 5634 Nov, [facility] [place] [facility] [address] [id number] [place] [address] 6175 Nov, [facility] [place] [facility] [address] [id number] [place] [address] 8963 Nov, [facility] [place] [facility] [address] [id number] [place] [address] 5023 October, [facility] [place] [facility] [address] [id number] [place] [address] 5677 October, [facility] [place] [facility] [address] [id number] [place] [address] 6543 October, [facility] [place] [facility] [address] [id number] [place] [address]- 5965 October, [facility] [place] [facility] [address] [id number] [place] [address]- 9403 October, [facility] [place] [facility] [address] [id number] [place] [address]- 3532 October, [facility] [place] [facility] [address] [id number] [place] [address] 6102 October, [facility] [place] [facility] [address] [id number] [place] [address]- 0686 October, [facility] [place] [facility] [address] [id number] [place] [address]- 2345 October, [facility] [place] [facility] [address] [id number] [place] [address]- 9128 October, [facility] [place] [facility] [address] [id number] [place] [address]- 3744 October, [facility] [place] [facility] [address] [id number] [place] [address] 6235 October, [facility] [place] [facility] [address] [id number] [place] [address]- 2454 October, [facility] [place] [facility] [address] [id number] [place] [address]- 6253 October, [facility] [place] [facility] [address] [id number] [place] [address]- 9613 Sep, [facility] [place] [facility] [address] [id number] [place] [address]- 0050 Sep, [facility] [place] [facility] [address] [id number] [place] [address]- 4739 Sep, [facility] [place] [facility] [address] [id number] [place] [address]- 7547 Sep, [facility] [place] [facility] [address] [id number] [place] [address] 3626 Sep, [facility] [place] [facility] [address] [id number] [place] [address]- 0268 Sep, [facility] [place] [facility] [address] [id number] [place] [address] 1338 Sep, [facility] [place] [facility] [address] [id number] [place] [address]- 0784 Sep, [facility] [place] [facility] [address] [id number] [place] [address]- 7936 Sep, [facility] [place] [facility] [address] [id number] [place] [address]- 0525 Sep, [facility] [place] [facility] [address] [id number] [place] [address]- 2891 Sep, [facility] [place] [facility] [address] [id number] [place] [address]- 8723 Sep, [facility] [place] [facility] [address] [id number] [place] [address]- 6851 Sep, [facility] [place] [facility] [address] [id number] [place] [address]- 2222 Sep, [facility] [place] [facility] [address] [id number] [place] [address]- 1268 Sep, [facility] [place] [facility] [address] [id number] [place] [address]- 5443 Aug, [facility] [place] [facility] [address] [id number] [place] [address]- 7036 Aug, [facility] [place] [facility] [address] [id number] [place] [address] 2722 Aug, [facility] [place] [facility] [address] [id number] [place] [address]- 3676 Aug, [facility] [place] [facility] [address] [id number] [place] [address]- 0923 Jul, [facility] [place] [facility] [address] [id number] [place] [address]- 5057 Jul, [facility] [place] [facility] [address] [id number] [place] [address]- 7139 Jul, [facility] [place] [facility] [address] [id number] [place] [address]- 0280 Jul, [facility] [place] [facility] [address] [id number] [place] [address]- 5532 Jun, [facility] [place] [facility] [address] [id number] [place] [address]- 8528 Jun, [facility] [place] [facility] [address] [id number] [place] [address]- 3555 Jun, [facility] [place] [facility] [address] [id number] [place] [address]- 3167 Jun, [facility] [place] [facility] [address] [id number] [place] [address]- 9613 10 Jun, 2013 [facility] [address] [id number] [place] [address]- 2341 10 Jun, 2013 [facility] [place] [facility] [address] [facility]NOTE [facility]] [id number] [place] [address]- 7564 08 Jun, 2013 [facility] [address] [id number] [place] [address]- 2635 08 Jun, 2013 [facility] [place] [facility] [address] [id number] [place] [address]- 8495 20 May, 2013 [facility] [address] [id number] [place] [address] 20 May, 2013 [facility] [place] [facility] [address] [id number] [place] [address]- 3473 18 May, 2013 [facility] [id number] [address] 7737 18 May, 2013 [facility] [address] [id number] [place] [address] 2212 17 May, 2013 [facility] [id number] [id number] 17 May, 2013 [facility] [id number] [address] 1529 17 May, 2013 [facility] [place] [facility] [address] [id number] [place] [address]- 0073 17 May, 2013 [facility] [place] [facility] [address] [id number] [place] [address]- 4412 16 May, 2013 [facility] [place] [facility] [address] [id number] [place] [address]- 9344 16 May, 2013 [facility] [place] [facility] [address] [facility]NOTE 3] [id number] [place] [address]- 8848 14 May, 2013 [facility] [place] [facility] [address] [facility]NOTE 3] [id number] [place] [address]- 3171 14 May, 2013 [facility] [place] [facility] [address] [id number] [place] [address]- 0820 13 May, 2013 [facility] [address] [id number] [place] [address]- 9451 May, [facility] [place] [facility] [address] [id number] [place] [address]- 6028 May, [facility] [address] [id number] [place] [address]- 0387 May, [facility] [place] [facility] [address] [id number] [place] [address]- 0189 May, [facility] [address] [id number] [place] [address]- 1181 May, [facility] [place] [facility] [address] [id number] [place] [address]- 3907 Apr, [facility] [place] [facility] [address] [id number] [place] [address]- 9240 Apr, [facility] [address] [id number] [place] [address]- 2258 Apr, [facility] [place] [facility] [address] [id number] [place] [address]- 2470 Apr, [facility] [address] [id number] [place] [address]- 4150 Aug, [facility] [place] [facility] [address] [id number] [place] [address]- 3683 Aug, [facility] [place] [facility] [address] [id number] [place] [address]- 5790 06 Aug, 2012 [facility] [place] [facility] [address] [id number] [place] [address]- 6068 05 Aug, 2012 [facility] [place] [facility] [address] [id number] [place] [address]- 8158 04 Jul, 2012 [facility] [place] [facility] [address] [id number] [place] [address]- 0296 Jun, [facility] [address] [id number] [place] [address]- 1180 Jun, [facility] [place] [facility] [address] [id number] [place] [address]- 4073 Jun, [facility] [place] [facility] [address] [facility]NOTE 3] [id number] [place] [address]- 6288 Jun, [facility] [place] [facility] [address] [id number] [place] [address]- 8560 May, [facility] [place] [facility] [address] [id number] [place] [address]- 8716 May, [facility] [place] [facility] [address] [id number] [place] [address]- 9309 May, [facility] [place] [facility] [address] [id number] [place] [address]- 5001 May, [facility] [place] [facility] [address] [id number] [place] [address]- 1192 May, [facility] [place] [facility] [address] [id number] [place] [address]- 4454 May, [facility] [place] [facility] [address] [id number] [place] [address]- 9366 May, [facility] [place] [facility] [address] [id number], [place] [address]- 4116 Apr, [facility] [place] [facility] [address] [id number], [place] [address]- 2131 Apr, [facility] [place] [facility] [address] [id number] [place] [address]- 7461 Apr, [facility] [place] [facility] [address] [id number] [place] [address]- 9589 Apr, [facility] [place] [facility] [address] [id number] [place] [address]- 7274 Apr, [facility] [place] [facility] [address] [id number] [place] [address]- 0321 Apr, [facility] [place] [facility] [address] [id number] [place] [address]- 8463 Apr, [facility] [place] [facility] [address] [id number] [place] [address] Mar, [facility] [place] [facility] [address] [id number] [place] [address]- 5266 Mar, [facility] [place] [facility] [address] [id number] [place] [address]- 7852 Mar, [facility] [place] [facility] [address] [id number] [place] 1404 Mar, [facility] [place] [facility] [address] [id number] [place] [address]- 7780 Mar, [facility] [place] [facility] [address] [id number] [place] [address]- 3542 Mar, [facility] [place] [facility] [address] [id number] [place] [address]- 8586 Mar, [facility] [place] [facility] [address] [id number] [place] [address]- 6909 Mar, [facility] [place] [facility] [address] [facility]NOTE 3] [id number] [place] [address]- 6685 Mar, [facility] [place] [facility] [address] [id number] [place] [address]- 3153 Mar, [facility] [place] [facility] [address] [id number], [place] [address]- 9021 Mar, [facility] [place] [facility] [address] [id number] [place] [address]- 9181 Mar, [facility] [place] [facility] [address] [facility]NOTE 3] [id number] [place] [address]- 1856 Feb, [facility] [place] [facility] [address] [id number], [place] [address]- 1968 Jan, [facility] [place] [facility] [address] [id number] [place] [address]- 1067 Jan, [facility] [place] [facility] [address] [id number] [place] [address]- 1725 Jan, [facility] [place] [facility] [address] [id number] [place] [address]- 8825 Jan, [facility] [place] [facility] [address] [id number] [place] [address]- 9874 Jan, [facility] [address] [id number] [place] [address]- 9747 Dec, [facility] [place] [facility] [address] [id number] [place] [address]- 8582 Dec, [facility] [address] [id number] [place] [address]- 4798 Nov, [facility] [address] [id number] [place] [address]- 0677 Nov, [facility] [place] [facility] [address] [id number] [place] [address]- 5725 Nov, [facility] [place] [facility] [address] [id number] [place] [address]- 9450 October, [facility] [place] [facility] [address] [id number] [place] [address]- 1609 October, [facility] [place] [facility] [address] [id number] [place] [address]- 6417 October, [facility] [place] [facility] [address] [id number] [place] [address]- 0448 October, [facility] [place] [facility] [address] [id number] [place] [address]- 2250 October, [facility] [place] [facility] [address] [id number] [place] [address]- 0161 October, [facility] [place] [facility] [address] [id number] [place] [address]- 8471 October, [facility] [place] [facility] [address] [id number] [place] [address]- 9128 Sep, [facility] [place] [facility] [address] [id number] [place] [address]- 6921 Sep, [facility] [place] [facility] [address] [id number] [place] [address]- 3459 Sep, [facility] [place] [facility] [address] [id number] [place] [address]- 6572 Sep, [facility] [place] [facility] [address] [id number] [place] [address]- 4382 24 Sep, 2011 [facility] [place] [facility] [address] [id number] [place] [address]- 0303 19 Sep, 2011 [facility] [place] [facility] [address] [id number] [place] [address]- 5781 17 Sep, 2011 [facility] [place] [facility] [address] [id number] [place] [address]- 5085 16 Sep, 2011 [facility] [place] [facility] [address] [id number] [place] [address]- 6996 16 Sep, 2011 [facility] [place] [facility] [address] [id number] [place] [address]- 2579 14 Sep, 2011 [facility] [place] [facility] [address] [id number] [place] [address]- 4321 13 Sep, 2011 [facility] [place] [facility] [address] [id number] [place] [address]- 6748 10 Sep, 2011 [facility] [place] [facility] [address] [id number] [place] [address]- 5452 09 Sep, 2011 [facility] [place] [facility] [address] [id number] [place] [address]- 8141 27 Aug, 2011 [facility] [place] [facility] [address] [id number] [place] [address]- 8698 12 Aug, 2011 [facility] [place] [facility] [address] [id number] [place] [address]- 3061 08 Aug, 2011 [facility] [address] [id number] [place] [address]- 7252 Aug, [facility] [place] [facility] [address] [id number] [place] [address]- 2736 28 Jul, 2011 [facility] [place] [facility] [address] [id number] [place] [address]- 3796 22 Jul, 2011 [facility] [place] [facility] [address] [id number] [place] [address]- 7943 16 Jul, 2011 [facility] [place] [facility] [address] [id number] [place] [address]- 7116 15 Jul, 2011 [facility] [place] [facility] [address] [id number] [place] [address]- 2109 14 Jul, 2011 [facility] [place] [facility] [address] [id number] [place] [address]- 6953 10 Jul, 2011 [facility] [place] [facility] [address] [id number] [place] [address]- 1785 Jun, [facility] [place] [facility] [address] [id number] [place] [address]- 6646 Jun, [facility] [place] [facility] [address] [id number] [place] [address]- 1612 Jun, [facility] [place] [facility] [address] [id number] [place] [address]- 1953 Jun, [facility] [place] [facility] [address] [id number] [place] [address]- 3659 Jun, [facility] [place] [facility] [address] [id number] [place] [address]- 9236 May, [facility] [place] [facility] [address] [id number] [place] [address]- 6794 May, [facility] [place] [facility] [address] [id number] [place] [address]- 8451 14 May, 2011 [facility] [place] [facility] [address] [id number] [place] [address]- 4669 14 May, 2011 [facility] [place] [facility] [address] [id number] [place] [address]- 1043 12 May, 2011 [facility] [place] [facility] [address] [id number] [place] 8297 07 May, 2011 [facility] [place] [facility] [address] [id number] [place] [address]- 1483 05 May, 2011 [facility] [place] [facility] [address] [id number] [place] [address]- 0589 15 Apr, 2011 [facility] [place] [facility] [address] [id number] [place] [address]- 1337 15 Apr, 2011 [facility] [place] [facility] [address] [id number] [place] [address]- 3127 Apr, [facility] [place] [facility] [address] [id number] [place] [address]- 8143 Apr, [facility] [place] [facility] [address] [id number] [place] [address]- 9727 Apr, [facility] [place] [facility] [address] [id number] [place] [address]- 1957 Apr, [facility] [place] [facility] [address] [id number], [place] [address]- 6644 Mar, [facility] [place] [facility] [address] [id number], [place] [address]- 2962 Mar, [facility] [place] [facility] [address] [id number] [place] [address]- 9426 Mar, [facility] [place] [facility] [address] [id number], [place] [address]- 1227 Mar, [facility] [place] [facility] [address] [id number], [place] [address]- 0740 Jan, [facility] [place] [facility] [address] [id number] [place] [address]- 5712 19 Dec, 2010 [facility] [address] [id number] [place] [address]- 2046 13 Dec, 2010 [facility] [place] [facility] [address] [id number] [place] [address] 2546 October, [facility] [address] [id number] [place] [address]- 7316 Sep, [facility] [place] [facility] [address] [id number] [place] [address] 2548 14 Sep, 2010 [facility] [address] [id number] [place] [address]- 3646 17 Jul, 2010 [facility] [address] [id number] [place] [address]- 1551 16 Jul, 2010 [facility] [address] [id number] [place] [address]- 4480 May, [facility] [address] [id number] [place] [address]- 1899 May, [facility] [address] [id number] [place] [address]- 2073 May, [facility] [address] [id number] [place] [address]- 3300 May, [facility] [address] [id number] [place] [address] Apr, [facility] [address] [id number] [place] [address] Apr, [facility] [place] [facility] [address] [id number] [place] [address] Apr, [facility] [place] [facility] [address] [id number] [place] [address] Apr, [facility] [address] [id number] [place] [address] Apr, [facility] [place] [facility] [address] [id number] [place] [address] Mar, [facility] [place] [facility] [address] [id number] [place] [address] 14 Mar, 2010 [facility] [place] [facility] [address] [id number] [place] [address] 13 Mar, 2010 [facility] [place] [facility] [address] [id number] [place] [address] Mar, [facility] [place] [facility] [address] [id number] [place] [address] Jan, [facility] [place] [facility] [address] [id number] [place] [address] 15 Dec, 2009 [facility] [place] [facility] [address] [facility]NOTE 3] [id number] [place] [address] Sep, [facility] [place] [facility] [address] [id number], [place] [address] May, [facility] [place] [facility] [address] [id number], [place] [address] May, [facility] [place] [facility] [address] [facility][NOTE 3] [id number], [place] [address] May, [facility] [place] [facility] [address] [facility][NOTE 3] [id number], [place] [address] Apr, [facility] [place] [facility] [address] [id number], [place] [address] Apr, [facility] [place] [facility] [address] [id number], [place] [address] Apr, [facility] [place] [facility] [address] [id number], [place] [address] Apr, [facility] [place] [facility] [address] [facility]NOTE 3] [id number], [place] [address] Apr, [facility] [place] [facility] [address] [id number], [place] [address] Mar, [facility] [address] [facility][NOTE 3] [id number] [place] [address] Mar, [facility] [address] [facility][NOTE 3] [id number] [place] [address] Jul, IMMUNIZATIONS No Known Immunizations SOCIAL HISTORY Never Assessed REASON FOR VISIT BP Reduction Challenge Check-in PLAN OF CARE VITAL SIGNS MEDICATIONS Unknown [...] 08/2017 Surgical History nephrectomy 03/2017 Hospitalization History Cellulitis-[facility] 12/20/15 Hospitalization History [facility]- Abd pain 03/07/2017 Hospital[facility]- Abd pain 03/14/2017 Hospital[facility]- No bowel movement, rash 04/13/2017 Hospitalization History [facility]- Abd pain r/t kidney surgery on 04/17/2017 Hospitalization History [facility]- Abd pain r/t kidney surgery on 04/18/2017 Hospitalization [facility]- Lower abd pain 04/30/2017 Hospitalization History [facility]- Cannot urinate 05/30/2017 Hospitalization History [facility]- Pancreatitis Sx 06/29/2017 Hospitalization History [facility]- Stomach pain 07/22/2017 Hospitalization History [facility]- Left side pain 08/12/2017 Hospitalization History [facility]- Incision site infection 08/30/2017 Hospitalization History [facility] [place]- Post Op Seroma/Hematoma Left Abdomen. Discharged 09/04/17- Dr Daniel 09/02/2017 Hospitalization History [facility]- Right shoulder and back pain 2017 Hospitalization History [facility]- Shoulder/Back pain 11/11/2017 Hospitalization History [facility]- Right shoulder blade pain 12/04/2017 Hospitalization History [facility]- C-Diff 12/13/2017 Hospitalization History C diff et MRSA 12/27/2017
--- OUTSIDE RECORDS SUMMARY | 2018-04-29 10:36 | XMS REPORT ---
Author Author SAI CARMEN [facility] Address [address] [place] [address] Care Team Providers Care Furniture Rental Consultant Name Role Phone MARCIO GIBBSY Unavailable PROBLEMS Type Condition ICD9-CM Code WAQ96-LC Code Onset Dates Condition Status SNOMED Code Problem Polydipsia R63.1 Active 27260116 Problem Trichotillomania F63.3 Active 68177493 Problem Atelectasis J98.11 Active 06465747 Problem Intestinal malabsorption, unspecified K90.9 Active 24077893 Problem Chronic fatigue R53.82 Active 08840218 Problem Generalized social phobia F40.11 Active 02708206 Problem Restless leg syndrome G25.81 Active 30169679 Problem Moderate episode of recurrent major depressive disorder F33.1 Active 645837070 Problem Chronic post-traumatic stress disorder (PTSD) F43.12 Active 376039840 Problem History of renal cell carcinoma Z85.528 Active 473387204 Problem Chronic tension-type headache, intractable G44.221 Active 077768539 Problem Nodule of left lung R91.1 Active 083103346 Problem Hirsuties L68.0 Active 535989264 Problem FH: polycystic ovary Z84.2 Active 590214665 Problem Morbid (severe) obesity due to excess calories E66.01 Active 446699830 Problem Chronic pancreatitis K86.1 Active 484475498 Problem Hyperlipidemia, mixed E78.2 Active 469966497 Problem Asthma J45.909 Active 535911934 ALLERGIES No Information ENCOUNTERS Encounter Location Date Diagnosis [facility] [id number] [address] Mar, [facility] [id number] [address] 18[address] Feb, [facility] [id number] [address] 7153 Feb, [facility] [id number] [place] [address] 96375- 2239 Jan, Acute pain of right knee M25.561 ; Right upper quadrant abdominal pain R10.11 and BMI 45.0-49.9, adult Z68.42 [facility] [id number] [place] [address] 53505- 5668 Jan, [facility] [id number] [place] [address] 86457- 8692 Jan, [facility] [id number] [place] [address] 06604- 2640 Dec, [facility] [id number] [place] [address] 59091- 1634 Dec, Intestinal malabsorption, unspecified K90.9 and Diarrhea, unspecified R19.7 [facility] [id number] [place] [address] 43246- 9879 Dec, [facility] [id number] [place] [address] 45228- 7090 Dec, Strep throat J02.0 ; Intestinal malabsorption, unspecified K90.9 ; Diarrhea, unspecified R19.7 ; Postoperative seroma involving digestive system after non-digestive system procedure K91.873 ; Hyperlipidemia, mixed E78.2 and BMI 45.0-49.9, adult Z68.42 [facility] [id number] [place] [address] 20990- 9190 Dec, [facility] [id number] [place] [address] 16539- 2595 Dec, Nausea R11.0 [facility] [id number] [place] [address] 04127- 4884 Dec, [facility] [address] [place] [address] 19074 -0627 Dec, Sore throat J02.9 ; Strep throat J02.0 and BMI 45.0-49.9, adult Z68.42 [facility] [address] [facility] [id number] [place] [address]- 0365 Dec, [facility] [address] [facility] [id number] [place] [address]- 6080 Dec, [facility] [address] [facility] [id number] [place] [address]- 0544 Dec, [facility] [address] [facility] [id number] [address] 1409 Dec, [facility] [address] [facility] [id number] [place] [address]- 4890 Dec, [facility] [address] [facility] [id number] [place] [address]- 6405 Dec, [facility] [address] [address] 9552 Dec, [facility] [id number] [address]- 0192 Dec, [facility] [id number] [address] 8819 Dec, Clostridium difficile colitis A04.72 ; Intractable vomiting with nausea, unspecified vomiting type R11.2 and BMI 45.0-49.9, adult Z68.42 [facility] [address] [address] 1181 Dec, [facility] [id number], [place] [address]- 0836 Nov, [facility] [id number] [address]- 9830 Nov, [facility] [id number] [address]- 7930 Nov, [facility] [id number] [address]- 7704 Nov, [facility] [address], [place] [address] Nov, [place] [id number] [place] [address] 09866- 7474 Nov, Hyperlipidemia, mixed E78.2 [facility] [id number] [place] [address] 90483 -4287 Nov, Acute suppurative otitis media of right ear without spontaneous rupture of tympanic membrane, recurrence not specified H66.001 and BMI 45.0-49.9, adult Z68.42 [place] [id number] [place] [address] 31036- 7715 Nov, Hyperlipidemia, mixed E78.2 [place] [id number] [place] [address] 77069- 7143 Nov, [address] [address] 44098- 7075 Nov, [place] [id number] [place] [address] 88824- 2750 Nov, Nodule of left lung R91.1 [id number] [place] [address] 33592- 7695 Nov, Medicare annual wellness visit, initial Z00.00 [...] adult Z68.42 and Encounter for immunization Z23 [place] [id number] [place] [address] 47991- 6169 October, [address] [address] 58653- 4070 October, Nodule of left lung R91.1 [facility] [id number] [place] [address] 33310- 8544 October, Nodule of left lung R91.1 [place] [id number] [place] [address] 41351- 7714 October, Recurrent major depressive disorder, in partial remission F33.41 ; Restless leg syndrome G25.81 ; Generalized social phobia F40.11 ; Chronic post-traumatic stress disorder (PTSD) F43.12 ; BMI 45.0-49.9, adult Z68.42 and Trichotillomania F63.3 [place] [id number] [place] [address] 70768- 1130 October, [place] [id number] [place] [address] 20409- 1295 Sep, Chronic fatigue R53.82 and BMI 45.0-49.9, adult Z68.42 [place] [id number] [place] [address] 24039- 3936 Aug, [place] [id number] [place] [address] 87174- 0113 Jul, Restless leg syndrome G25.81 and B12 deficiency E53.8 [place] [id number] [place] [address] 62250- 4838 Jul, [place] [id number] [place] [address] 24093- 8999 Jul, [place] [id number] [place] [address] 41908- 3039 Jun, [place] [id number] [place] [address] 62698- 3088 Jun, Fatigue, unspecified type R53.83 ; History of renal cell carcinoma Z85.528 ; Chronic pancreatitis K86.1 ; Restless leg syndrome G25.81 ; Dark urine R82.99 and BMI 45.0-49.9, adult Z68.42 [address] [address], [place] [address]- 9015 Jun, [facility] [address], [place] [address]- 4098 Jun, [facility] [address] [address]- 2196 Jun, [facility] [id number] [place] [address] 08437- 5589 Jun, [facility] [address], [place] [address]- 3167 May, Chronic post-traumatic stress disorder (PTSD) F43.12 ; Moderate episode of recurrent major depressive disorder F33.1 ; Trichotillomania F63.3 and Generalized social phobia F40.11 [address] [place] [address] 38192- 8598 May, [address] [address] [address]- 0044 May, Chronic post-traumatic stress disorder (PTSD) F43.12 ; Moderate episode of recurrent major depressive disorder F33.1 ; Trichotillomania F63.3 and Generalized social phobia F40.11 [address] [address], [place] [address]- 8663 May, Hyperlipidemia, mixed E78.2 ; Morbid (severe) obesity due to excess calories E66.01 ; Chronic post-traumatic stress disorder (PTSD) F43.12 ; Moderate episode of recurrent major depressive disorder F33.1 ; Trichotillomania F63.3 and Generalized social phobia F40.11 [address] [address], [place] [address]- 1930 Apr, [address] [address], [place] [address]- 8019 Apr, Hyperlipidemia, mixed E78.2 ; Morbid (severe) obesity due to excess calories E66.01 ; Chronic post-traumatic stress disorder (PTSD) F43.12 ; Moderate episode of recurrent major depressive disorder F33.1 ; Trichotillomania F63.3 and Generalized social phobia F40.11 [address] [id number] [place] [address] 01595- 7413 Apr, Trichotillomania F63.3 ; Generalized social phobia F40.11 ; Chronic post-traumatic stress disorder (PTSD) F43.12 and Moderate episode of recurrent major depressive disorder F33.1 [place] [id number] [place] [address] 73370- 4388 Apr, [address] [address] 83545- 4563 Apr, [place] [id number] [place] [address] 89610- 8922 Mar, Moderate episode of recurrent major depressive disorder F33.1 ; Trichotillomania F63.3 ; Chronic post-traumatic stress disorder (PTSD) F43.12 ; Generalized social phobia F40.11 and Restless leg syndrome G25.81 [address] [address] 62263- 5093 Mar, [place] [id number] [place] [address] 15964- 2601 Mar, [place] [id number] [place] [address] 76408- 4647 Feb, Left kidney mass N28.89 [address] [id number] [place] [address] 40091- 8461 Jan, [address] [address] 55175- 9346 Dec, Polydipsia R63.1 ; Chronic pancreatitis K86.1 and Fatigue, unspecified type R53.83 [address] [id number] [place] [address] 12943- 6859 Nov, [address], [place] [address]- 9921 13 Nov, 2016 [facility] [id number] [place] [address] 90962- 6506 Nov, Headache around the eyes R51 [facility] [id number] [place] [address] 31507- 8170 Nov, [facility] [id number] [place] [address] 51500- 4360 October, STD exposure Z20.2 [facility] [id number] [place] [address] 82281- 6475 October, STD exposure Z20.2 [facility] [id number] [place] [address] 85763- 4273 October, Chronic post-traumatic stress disorder (PTSD) F43.12 ; Generalized social phobia F40.11 ; Trichotillomania F63.3 and Restless leg syndrome G25.81 [facility] [id number] [place] [address] 97332- 0511 October, [facility] [id number] [place] [address] 52022- 2275 Sep, [facility] [id number] [place] [address] 06276- 5593 Aug, [facility] [id number] [place] [address] 91229- 4854 Aug, [facility] [id number] [place] [address] 15756- 5007 Aug, Neck mass R22.1 [facility] [id number] [place] [address] 56818- 3537 Aug, Atelectasis J98.11 [facility] [address] [place] [address] 13542- 8660 28 Jul, 2016 Hyperlipidemia, mixed E78.2 ; Atypical pneumonia J18.9 and Neck mass R22.1 [place] [id number] [place] [address] 78867- 5788 15 Jul, 2016 Hemoptysis R04.2 [place] [id number] [place] [address] 10505- 1769 08 Jul, 2016 Acute non-recurrent pansinusitis J01.40 ; Hemoptysis R04.2 ; Polydipsia R63.1 and Malaise R53.81 [facility] [id number] [place] [address] 12637 -9594 May, Other viral agents as the cause of diseases classified elsewhere B97.89 and Acute upper respiratory infection, unspecified J06.9 [facility] [id number] [place] [address] 34165 -4564 Mar, Nausea R11.0 [facility] [id number] [place] [address] 31687 -5806 Dec, Hives L50.9 [place] [id number] [place] [address] 39559- 5214 Dec, [facility] [id number] [place] [address] 20670 -6393 Dec, Cutaneous abscess of limb, unspecified L02.419 ; Cellulitis of unspecified part of limb L03.119 ; Encounter for incision and drainage procedure Z01.89 and Encounter for recheck of abscess following incision and drainage Z09 [facility] [id number] [place] [address] 26062 -5021 09 Dec, 2015 Abscess of leg, right L02.415 [address] [id number] [place] [address] 73120- 4993 Dec, Cellulitis of unspecified part of limb L03.119 and Cutaneous abscess of limb, unspecified L02.419 [id number] [place] [address] 80977- 5694 Dec, [address] [address] [place] [address] 75478- 7214 Dec, [facility] [id number] [place] [address] 88419 -1969 Aug, [facility] [id number] [place] [address] 21195- 8855 Aug, [facility] [id number] [place] [address] 30725 -0297 04 Jul, 2015 Pain in unspecified wrist M25.539 and Back pain, thoracic M54.6 [facility] [place] [id number] [place] [address] 99322 -2380 Jun, Strain of right wrist, initial encounter S66.911A [place] [id number] [place] [address] 23757- 2415 11 Jun, 2015 Chronic pancreatitis, unspecified pancreatitis type K86.1 ; Hirsuties L68.0 ; Morbid (severe) obesity due to excess calories E66.01 ; Chronic pancreatitis K86.1 and Asthma J45.909 [address] [id number] [place] [address] 96378- 2727 May, [place] [id number] [place] [address] 23204- 8449 May, Hyperlipidemia, mixed E78.2 and Muscle spasm of back M62.830 [place] [id number] [place] [address] 37663- 6743 30 Apr, 2015 [place] [id number] [place] [address] 43781- 1046 16 Apr, 2015 Torticollis M43.6 [place] [id number] [place] [address] 75364- 1032 09 Apr, 2015 Right-sided thoracic back pain M54.6 [place] [id number] [place] [address] 95962- 9879 15 Mar, 2015 Rash R21 [place] [address], [place] [address]- 8499 Mar, [facility] [address] [place] [address] 67035- 1251 Jan, [facility] [address] [address]- 4092 Dec, [facility] [id number] [place] [address] 10363- 1675 Dec, Urinary frequency 788.41 and Nocturia more than twice per night 788.43 [facility] [id number] [place] [address] 73227- 6694 Nov, [facility] [id number] [place] [address] 03934- 8951 Nov, [facility] [id number] [place] [address] 35752- 9399 Nov, Abdominal pain 789.00 [facility] [id number] [place] [address] 89580- 8998 October, TDAP DX V06.1 [facility] [id number] [place] [address] 42292- 2563 October, [facility] [address], [place] [address]- 7808 October, Disturbance of skin sensation 782.0 ; Wrist pain, right 719.43 ; Hyperlipidemia 272.4 and Skin lesion of face 709.9 [facility] [address], [place] [address]- 0107 Sep, [facility] [id number] [place] [address] 40819- 8509 Sep, [facility] [address], [place] [address]- 5068 Aug, [facility] [id number] [place] [address] 02588- 7178 Aug, [facility] [place] [facility] [address] [id number] [place] [address]- 8338 23 Aug, 2014 [facility] [place] [facility] [address] [id number] [place] [address]- 2449 23 Aug, 2014 [facility] [place] [facility] [address] [id number] [place] [address]- 8795 16 Aug, 2014 [facility] [place] [facility] [address] [id number] [place] [address]- 1470 16 Aug, 2014 [facility] [place] [facility] [address] [id number] [place] [address]- 1263 14 Aug, 2014 [facility] [place] [facility] [address] [id number] [place] [address]- 5259 14 Aug, 2014 [facility] [place] [facility] [address] [id number] [place] [address]- 6633 Aug, [facility] [place] [facility] [address] [id number] [place] [address]- 2453 Aug, [facility] [place] [facility] [address] [id number] [place] [address]- 5006 Aug, [facility] [place] [facility] [address] [id number] [place] [address]- 2619 Aug, [facility] [place] [facility] [address] [id number] [place] [address]- 1624 Aug, [facility] [place] [facility] [address] [id number] [address]- 2476 Aug, [facility] [place] [facility] [address] [id number] [place] [address]- 1241 Jul, [facility] [place] [facility] [address] [id number] [place] [address]- 3024 Jul, [facility] [place] [facility] [address] [id number] [place] [address]- 9610 Jul, [facility] [place] [facility] [address] [id number] [place] [address]- 9757 13 Jul, 2014 [facility] [address] [id number] [place] [address]- 3122 Jul, [facility] [place] [facility] [address] [id number] [place] [address]- 2086 Jul, [facility] [address] [id number] [place] [address]- 7765 Jun, [facility] [place] [facility] [address] [id number] [place] [address]- 7296 Jun, [facility] [address] [id number] [place] [address]- 3968 Jun, [facility] [place] [facility] [address] [id number] [place] [address]- 5184 Jun, [facility] [address] [id number] [place] [address]- 6685 Jun, [facility] [address] [id number] [place] [address]- 3278 Jun, [facility] [place] [facility] [address] [id number] [place] [address]- 6847 Jun, [facility] [address] [id number] [place] [address]- 9766 15 Jun, 2014 [facility] [place] [facility] [address] [id number] [place] [address]- 2931 May, [facility] [place] [facility] [address] [id number] [place] [address]- 6259 May, [facility] [place] [facility] [address] [id number] [place] [address]- 2689 18 May, 2014 [facility] [place] [facility] [address] [id number] [place] [address]- 5396 18 May, 2014 [facility] [place] [facility] [address] [id number] [place] [address]- 0841 May, [facility] [place] [facility] [address] [id number] [place] [address]- 3484 May, [facility] [place] [facility] [address] [id number] [place] [address] May, [facility] [place] [facility] [address] [id number] [place] [address] May, [facility] [place] [facility] [address] [id number] [place] [address] May, [facility] [place] [facility] [address] [id number] [place] [address] May, [facility] [place] [facility] [address] [id number] [place] [address] May, [facility] [place] [facility] [address] [id number] [place] [address] May, [facility] [place] [facility] [address] [id number] [place] [address] Apr, [facility] [place] [facility] [address] [id number] [place] [address] Apr, [facility] [place] [facility] [address] [id number] [place] [address] Apr, [facility] [place] [facility] [address] [id number] [place] [address] Apr, [facility] [place] [facility] [address] [id number] [place] [address] Apr, [facility] [place] [facility] [address] [id number] [place] [address] Apr, [facility] [place] [facility] [address] [id number] [place] [address] Apr, [facility] [place] [facility] [address] [id number] [place] [address] Apr, [facility] [place] [facility] [address] [id number] [place] [address] Apr, [facility] [place] [facility] [address] [id number] [place] [address] Apr, [facility] [place] [facility] [address] [id number] [place] [address] Apr, [facility] [place] [facility] [address] [id number] [place] [address] Apr, [facility] [place] [facility] [address] [id number] [place] [address] Mar, [facility] [place] [facility] [address] [id number] [place] [address] Mar, [facility] [place] [facility] [address] [id number] [place] [address] Mar, [facility] [place] [facility] [address] [id number] [place] [address] Mar, [facility] [place] [facility] [address] [id number] [place] [address] 10 Feb, 2014 [facility] [place] [facility] [address] [id number] [place] [address] 10 Feb, 2014 [facility] [place] [facility] [address] [id number] [place] [address] 05 Feb, 2013 [facility] [place] [facility] [address] [id number] [place] [address] Feb, 2013 [facility] [place] [facility] [address] [id number] [place] [address] Feb, 2013 [facility] [place] [facility] [address] [id number] [place] [address] Feb, [facility] [place] [facility] [address] [id number] [place] [address] Jan, [facility] [place] [facility] [address] [id number] [place] [address] Jan, [facility] [place] [facility] [address] [id number] [place] [address] Jan, [facility] [place] [facility] [address] [id number] [place] [address] Jan, [facility] [place] [facility] [address] [id number] [place] [address] Jan, [facility] [place] [facility] [address] [id number] [place] [address] Jan, [facility] [place] [facility] [address] [id number] [place] [address] Jan, [facility] [place] [facility] [address] [id number] [place] [address] Jan, [facility] [place] [facility] [address] [id number] [place] [address] Jan, [facility] [place] [facility] [address] [id number] [place] [address] Jan, [facility] [place] [facility] [address] [id number] [place] [address] 8584 Jan, [facility] [place] [facility] [address] [id number] [place] [address] 9808 Jan, [facility] [place] [facility] [address] [id number] [place] [address] 2320 Jan, [facility] [place] [facility] [address] [id number] [place] [address] 8612 Jan, [facility] [place] [facility] [address] [id number] [place] [address] 8267 Dec, [facility] [place] [facility] [address] [id number] [place] [address] 7182 Dec, [facility] [place] [facility] [address] [id number] [place] [address] 7903 Dec, [facility] [place] [facility] [address] [id number] [place] [address] 5715 Dec, [facility] [place] [facility] [address] [id number] [place] [address] 0448 Nov, [facility] [place] [facility] [address] [id number] [place] [address] 9306 Nov, [facility] [place] [facility] [address] [id number] [place] [address]- 2973 Nov, [facility] [place] [facility] [address] [id number] [place] [address]- 0142 Nov, [facility] [place] [facility] [address] [id number] [place] [address]- 7267 Nov, [facility] [place] [facility] [address] [id number] [place] [address] 2133 October, [facility] [place] [facility] [address] [id number] [place] [address] 9830 October, [facility] [place] [facility] [address] [id number] [place] [address]- 9736 October, [facility] [place] [facility] [address] [id number] [place] [address]- 7237 October, [facility] [place] [facility] [address] [id number] [place] [address]- 4321 October, [facility] [place] [facility] [address] [id number] [place] [address]- 1110 October, [facility] [place] [facility] [address] [id number] [place] [address] 5059 October, [facility] [place] [facility] [address] [id number] [place] [address]- 3426 October, [facility] [place] [facility] [address] [id number] [place] [address] 1959 October, [facility] [place] [facility] [address] [id number] [place] [address]- 1104 October, [facility] [place] [facility] [address] [id number] [place] [address]- 8867 October, [facility] [place] [facility] [address] [id number] [place] [address]- 5736 October, [facility] [place] [facility] [address] [id number] [place] [address]- 7657 October, [facility] [place] [facility] [address] [id number] [place] [address]- 3525 October, [facility] [place] [facility] [address] [id number] [place] [address]- 9785 Sep, [facility] [place] [facility] [address] [id number] [place] [address]- 2131 Sep, [facility] [place] [facility] [address] [id number] [place] [address]- 8261 Sep, [facility] [place] [facility] [address] [id number] [place] [address]- 5839 Sep, [facility] [place] [facility] [address] [id number] [place] [address]- 6400 Sep, [facility] [place] [facility] [address] [id number] [place] [address]- 6824 Sep, [facility] [place] [facility] [address] [id number] [place] [address]- 4869 Sep, [facility] [place] [facility] [address] [id number] [place] [address]- 3831 Sep, [facility] [place] [facility] [address] [id number] [place] [address]- 9442 Sep, [facility] [place] [facility] [address] [id number] [place] [address]- 7735 Sep, [facility] [place] [facility] [address] [id number] [place] [address]- 2690 Sep, [facility] [place] [facility] [address] [id number] [place] [address]- 8419 Sep, [facility] [place] [facility] [address] [id number] [place] [address]- 5082 Sep, [facility] [place] [facility] [address] [id number] [place] [address]- 4505 Sep, [facility] [place] [facility] [address] [id number] [place] [address]- 4562 Sep, [facility] [place] [facility] [address] [id number] [place] [address]- 3904 Aug, [facility] [place] [facility] [address] [id number] [place] [address]- 4706 Aug, [facility] [place] [facility] [address] [id number] [place] [address]- 1075 Aug, [facility] [place] [facility] [address] [id number] [place] [address]- 8358 Aug, [facility] [place] [facility] [address] [id number] [place] [address]- 7650 Jul, [facility] [place] [facility] [address] [id number] [place] [address]- 3757 Jul, [facility] [place] [facility] [address] [id number] [place] [address]- 2222 Jul, [facility] [place] [facility] [address] [id number] [place] [address]- 8244 Jul, [facility] [place] [facility] [address] [id number] [place] [address]- 4769 Jun, [facility] [place] [facility] [address] [id number] [place] [address]- 5987 Jun, [facility] [place] [facility] [address] [id number] [place] [address]- 8665 Jun, [facility] [place] [facility] [address] [id number] [place] [address]- 5634 Jun, [facility] [place] [facility] [address] [id number] [place] [address]- 1582 10 Jun, 2013 [facility] [address] [id number] [place] [address]- 7068 10 Jun, 2013 [facility] [place] [facility] [address] [facility] [id number] [place] [address]- 8949 08 Jun, 2013 [facility] [address] [id number] [place] [address]- 3081 08 Jun, 2013 [facility] [place] [facility] [address] [id number] [place] [address]- 4483 20 May, 2013 [facility] [address] [id number] [place] [address] 20 May, 2013 [facility] [place] [facility] [address] [id number] [place] [address]- 1588 18 May, 2013 [facility] [id number] [address] 7751 18 May, 2013 [facility] [address] [id number] [place] [address]- 0358 17 May, 2013 [facility] [id number] [id number] 17 May, 2013 [facility] [id number] [address] 1298 17 May, 2013 [facility] [place] [facility] [address] [id number] [place] [address]- 4767 17 May, 2013 [facility] [place] [facility] [address] [id number] [place] [address]- 6833 16 May, 2013 [facility] [place] [facility] [address] [id number] [place] [address]- 8672 16 May, 2013 [facility] [place] [facility] [address] [facility] [id number] [place] [address]- 1171 14 May, 2013 [facility] [place] [facility] [address] [facility] [id number] [place] [address]- 0190 14 May, 2013 [facility] [place] [facility] [address] [id number] [place] [address]- 6471 13 May, 2013 [facility] [address] [id number] [place] [address]- 2630 May, [facility] [place] [facility] [address] [id number] [place] [address]- 3339 May, [facility] [address] [id number] [place] [address]- 4635 May, [facility] [place] [facility] [address] [id number] [place] [address]- 9768 May, [facility] [place] [address] [id number] [place] [address]- 0122 May, [facility] [place] [facility] [address] [id number] [place] [address]- 2573 Apr, [facility] [place] [facility] [address] [id number] [place] [address]- 7706 Apr, [facility] [address] [id number] [place] [address]- 5217 Apr, [facility] [place] [facility] [address] [id number] [place] [address]- 4345 Apr, [facility] [address] [id number] [place] [address]- 0901 Aug, [facility] [place] [facility] [address] [id number] [place] [address]- 2904 Aug, [facility] [place] [facility] [address] [id number] [place] [address]- 8822 06 Aug, 2012 [facility] [place] [facility] [address] [id number] [place] [address]- 1253 05 Aug, 2012 [facility] [place] [facility] [address] [id number] [place] [address]- 2201 04 Jul, 2012 [facility] [place] [facility] [address] [id number] [place] [address]- 2110 Jun, [facility] [address] [id number] [place] [address]- 0563 Jun, [facility] [place] [facility] [address] [id number] [place] [address]- 2837 Jun, [facility] [place] [facility] [address] [facility] [id number] [place] [address]- 7308 Jun, [facility] [place] [facility] [address] [id number] [place] [address]- 7540 May, [facility] [place] [facility] [address] [id number] [place] [address]- 2915 May, [facility] [place] [facility] [address] [id number] [place] [address]- 3796 May, [facility] [place] [facility] [address] [id number] [place] [address]- 9674 May, [facility] [place] [facility] [address] [id number] [place] [address]- 6004 May, [facility] [place] [facility] [address] [id number] [place] [address]- 8299 May, [facility] [place] [facility] [address] [id number] [place] [address]- 4638 May, [facility] [place] [facility] [address] [id number], [place] [address]- 9385 Apr, [facility] [place] [facility] [address] [id number], [place] [address]- 8994 Apr, [facility] [place] [facility] [address] [id number] [place] [address]- 8202 Apr, [facility] [place] [facility] [address] [id number] [place] [address]- 8356 Apr, [facility] [place] [facility] [address] [id number] [place] [address]- 0825 Apr, [facility] [place] [facility] [address] [id number] [place] [address]- 3444 Apr, [facility] [place] [facility] [address] [id number] [place] [address]- 6652 Apr, [facility] [place] [facility] [address] [id number] [place] Mar, [facility] [place] [facility] [address] [id number] [place] [address]- 8011 Mar, [facility] [place] [facility] [address] [id number] [place] [address]- 0189 Mar, [facility] [place] [facility] [address] [id number] [place] [address] Mar, [facility] [place] [facility] [address] [id number] [place] [address]- 2629 Mar, [facility] [place] [facility] [address] [id number] [place] [address]- 4992 Mar, [facility] [place] [facility] [address] [id number] [place] [address]- 0224 Mar, [facility] [place] [facility] [address] [id number] [place] [address]- 6275 Mar, [facility] [place] [facility] [address] [facility] [id number] [place] [address]- 7421 Mar, [facility] [place] [facility] [address] [id number] [place] [address]- 4950 Mar, [facility] [place] [facility] [address] [id number], [place] [address]- 5859 Mar, [facility] [place] [facility] [address] [id number] [place] [address]- 5372 Mar, [facility] [place] [facility] [address] [facility] [id number] [place] [address]- 9306 Feb, [facility] [place] [facility] [address] [id number], [place] [address]- 6407 Jan, [facility] [place] [facility] [address] [id number] [place] [address]- 7149 Jan, [facility] [place] [facility] [address] [id number] [place] [address]- 7506 Jan, [facility] [place] [facility] [address] [id number] [place] [address]- 5785 Jan, [facility] [place] [facility] [address] [id number] [place] [address]- 7902 Jan, [facility] [address] [id number] [place] [address]- 9208 Dec, [facility] [place] [facility] [address] [id number] [place] [address]- 9722 Dec, [facility] [address] [id number] [place] [address]- 3005 Nov, [facility] [address] [id number] [place] [address]- 6421 Nov, [facility] [place] [facility] [address] [id number] [place] [address]- 1362 Nov, [facility] [place] [facility] [address] [id number] [place] [address]- 3752 October, [facility] [place] [facility] [address] [id number] [place] [address]- 5724 October, [facility] [place] [facility] [address] [id number] [place] [address]- 4976 October, [facility] [place] [facility] [address] [id number] [place] [address]- 4012 October, [facility] [place] [facility] [address] [id number] [place] [address]- 0288 October, [facility] [place] [facility] [address] [id number] [place] [address]- 0864 October, [facility] [place] [facility] [address] [id number] [place] [address]- 6792 October, [facility] [place] [facility] [address] [id number] [place] [address]- 9637 Sep, [facility] [place] [facility] [address] [id number] [place] [address]- 4334 Sep, [facility] [place] [facility] [address] [id number] [place] [address]- 9517 Sep, [facility] [place] [facility] [address] [id number] [place] [address]- 3773 Sep, [facility] [place] [facility] [address] [id number] [place] [address]- 5292 24 Sep, 2011 [facility] [place] [facility] [address] [id number] [place] [address]- 3382 19 Sep, 2011 [facility] [place] [facility] [address] [id number] [place] [address]- 4006 17 Sep, 2011 [facility] [place] [facility] [address] [id number] [place] [address]- 6526 16 Sep, 2011 [facility] [place] [facility] [address] [id number] [place] [address]- 5983 16 Sep, 2011 [facility] [place] [facility] [address] [id number] [place] [address]- 0885 14 Sep, 2011 [facility] [place] [facility] [address] [id number] [place] [address]- 6823 13 Sep, 2011 [facility] [place] [facility] [address] [id number] [place] [address]- 3982 10 Sep, 2011 [facility] [place] [facility] [address] [id number] [place] [address]- 7531 09 Sep, 2011 [facility] [place] [facility] [address] [id number] [place] [address]- 2638 27 Aug, 2011 [facility] [place] [facility] [address] [id number] [place] [address]- 5702 12 Aug, 2011 [facility] [place] [facility] [address] [id number] [place] [address]- 3267 08 Aug, 2011 [facility] [address] [id number] [place] [address]- 8609 Aug, [facility] [place] [facility] [address] [id number] [place] [address]- 0606 28 Jul, 2011 [facility] [place] [facility] [address] [id number] [place] [address]- 8736 22 Jul, 2011 [facility] [place] [facility] [address] [id number] [place] [address]- 4515 16 Jul, 2011 [facility] [place] [facility] [address] [id number] [place] [address]- 8926 15 Jul, 2011 [facility] [place] [facility] [address] [id number] [place] [address]- 7740 14 Jul, 2011 [facility] [place] [facility] [address] [id number] [place] [address]- 4513 10 Jul, 2011 [facility] [place] [facility] [address] [id number] [place] [address]- 3776 Jun, [facility] [place] [facility] [address] [id number] [place] [address]- 2475 Jun, [facility] [place] [facility] [address] [id number] [place] [address]- 7685 Jun, [facility] [place] [facility] [address] [id number] [place] [address]- 7218 Jun, [facility] [place] [facility] [address] [id number] [place] [address]- 2952 Jun, [facility] [place] [facility] [address] [id number] [place] [address]- 9188 May, [facility] [place] [facility] [address] [id number] [place] [address]- 7388 May, [facility] [place] [facility] [address] [id number] [place] [address]- 7191 14 May, 2011 [facility] [place] [facility] [address] [id number] [place] [address]- 5170 14 May, 2011 [facility] [place] [facility] [address] [id number] [place] [address]- 6497 12 May, 2011 [facility] [place] [facility] [address] [id number] [place]953 07 May, 2011 [facility] [place] [facility] [address] [id number] [place] [address]- 3060 05 May, 2011 [facility] [place] [facility] [address] [id number] [place] [address]- 3471 15 Apr, 2011 [facility] [place] [facility] [address] [id number] [place] [address]- 0817 15 Apr, 2011 [facility] [place] [facility] [address] [id number] [place] [address]- 7185 Apr, [facility] [place] [facility] [address] [id number] [place] [address]- 2306 Apr, [facility] [place] [facility] [address] [id number] [place] [address]- 7038 Apr, [facility] [place] [facility] [address] [id number] [place] [address]- 2619 Apr, [facility] [place] [facility] [address] [id number], [place] [address]- 5971 Mar, [facility] [place] [facility] [address] [id number], [place] [address]- 5289 Mar, [facility] [place] [facility] [address] [id number] [place] [address]- 6905 Mar, [facility] [place] [facility] [address] [id number], [place] [address]- 0316 Mar, [facility] [place] [facility] [address] [id number], [place] [address]- 2329 Jan, [facility] [place] [facility] [address] [id number] [place] [address]- 5272 19 Dec, 2010 [facility] [address] [id number] [place] [address]- 2206 13 Dec, 2010 [facility] [place] [facility] [address] [id number] [place] [address] 2546 October, [facility] [address] [id number] [place] [address]- 3541 Sep, [facility] [place] [facility] [address] [id number] [place] [address] 254 14 Sep, 2010 [facility] [address] [id number] [place] [address]- 7126 17 Jul, 2010 [facility] [address] [id number] [place] [address] 16 Jul, 2010 [facility] [address] [id number] [place] [address] May, [facility] [address] [id number] [place] [address] May, [facility] [address] [id number] [place] [address] May, [facility] [address] [id number] [place] [address] May, [facility] [address] [id number] [place] [address] Apr, [facility] [address] [id number] [place] [address] Apr, [facility] [place] [facility] [address] [id number] [place] [address] Apr, [facility] [place] [facility] [address] [id number] [place] Apr, [facility] [address] [id number] [place] [address] Apr, [facility] [place] [facility] [address] [id number] [place] [address] Mar, [facility] [place] [facility] [address] [id number] [place] [address] 14 Mar, 2010 [facility] [place] [facility] [address] [id number] [place] [address] 13 Mar, 2010 [facility] [place] [facility] [address] [id number] [place] [address] Mar, [facility] [place] [facility] [address] [id number] [place] [address] Jan, [facility] [place] [facility] [address] [id number] [place] [address] 15 Dec, 2009 [facility] [place] [facility] [address] [facility] [id number] [place] [address] Sep, [facility] [place] [facility] [address] [id number], [place] [address] May, [facility] [place] [facility] [address] [id number], [place] [address] May, [facility] [place] [facility] [address] [facility] [id number], [place] [address] May, [facility] [place] [facility] [address] [facility] [id number], [place] [address] Apr, [facility] [place] [facility] [address] [id number], [place] [address] Apr, [facility] [place] [facility] [address] [id number], [place] [address] Apr, [facility] [place] [facility] [address] [id number], [place] [address] Apr, [facility] [place] [facility] [address] [facility] [id number], [place] [address] Apr, [facility] [place] [facility] [address] [id number], [place] [address] Mar, [facility] [address] [facility] [id number] [place] [address] Mar, [facility] [address] [facility] [id number], [place] [address] Jul, IMMUNIZATIONS No Known Immunizations SOCIAL HISTORY Never Assessed REASON FOR VISIT Ultrasound Results PLAN OF CARE VITAL SIGNS MEDICATIONS Unknown [...] [facility] 12/20/15 Hospitalization History [facility]- Abd pain 03/07/2017 Hospitalization History [facility]- Abd pain 03/14/2017 Hospitalization History [facility]- No bowel movement, rash 04/13/2017 Hospitalization History [facility]- Abd pain r/t kidney surgery on 04/17/2017 Hospitalization History [facility]- Abd pain r/t kidney surgery on 04/18/2017 Hospitalization History [facility]- Lower abd pain 04/30/2017 Hospitalization History [facility]- Cannot urinate 05/30/2017 Hospitalization History [facility]- Pancreatitis Sx 06/29/2017 Hospitalization History [facility]- Stomach pain 07/22/2017 Hospitalization History [facility]- Left side pain 08/12/2017 Hospitalization History [facility]- Incision site infection 08/30/2017 Hospitalization History [facility]- Post Op Seroma/Hematoma Left Abdomen. Discharged 09/04/17- Dr Daniel 09/02/2017 Hospitalization History [facility]- Right shoulder and back pain 2017 Hospitalization History [facility]- Shoulder/Back pain 11/11/2017 Hospitalization History [facility]- Right shoulder blade pain 12/04/2017 Hospitalization History [facility]- C-Diff 12/13/2017 Hospitalization History C diff et MRSA 12/27/2017
[2018-04-29] MEDS ORDERED: KETOROLAC 30 MG/ML VIAL IVP ONE (11:15)
[2018-04-29] MEDS ORDERED: PROCHLORPERAZINE 10 MG/2ML INJ (COMPAZINE) IV ONE (11:15)
[2018-04-29] MEDS ORDERED: NS IV 500 ML 500 ML IV SCH (11:15)
[2018-04-29] MEDS ORDERED: diphenhydrAMINE 50 MG/ML INJ (BENADRYL) IVP ONE (11:15)
[2018-04-29 11:17] LABS: BASOPHILS % (AUTO) 0 % (0-10); EOSINOPHILS # (AUTO) 0.2 10^3/uL (0.0-0.3); EOSINOPHILS % (AUTO) 2 % (0-10); HEMATOCRIT 39 % (35-52); HEMOGLOBIN 12.2 G/DL (11.5-16.0); LYMPHOCYTES # (AUTO) 2.1 X 10^3 (1.0-4.0); LYMPHOCYTES % (AUTO) 29 % (12-44); MEAN CORPUSCULAR HEMOGLOBIN 27 PG (25-34); MEAN CORPUSCULAR HGB CONC 31 G/DL (32-36); MEAN CORPUSCULAR VOLUME 85 FL (80-99); MEAN PLATELET VOLUME 9.3 FL (7.4-10.4); MONOCYTES # (AUTO) 0.4 X 10^3 (0.0-1.0); MONOCYTES % (AUTO) 5 % (0-12); NEUTROPHILS # (AUTO) 4.5 X 10^3 (1.8-7.8); NEUTROPHILS % (AUTO) 63 % (42-75); PLATELET COUNT 267 10^3/uL (130-400); RED BLOOD COUNT 4.58 10^6/uL (4.35-5.85); RED CELL DISTRIBUTION WIDTH 13.9 % (10.0-14.5); WHITE BLOOD COUNT 7.1 10^3/uL (4.3-11.0)
--- NOTE | 2018-04-29 11:24 | ED General ---
General Chief Complaint: General Problems/Pain Stated Complaint: DEHYDRATION, HEADACHE, STOMACH PAIN NAUSEA Nursing Triage Note: Pt c/o MEJIA x1 week and "stabbing" abd pain on L side. Pt also reports nausea. Nursing Sepsis Screen: No Definite Risk Source of Information: Patient Exam Limitations: No Limitations History of Present Illness Date Seen by Provider: Apr 29, 2018 Time Seen by Provider: 11:21 Initial Comments To ER per private vehicle with global headache with photophobia for one week. She also has nausea. She has a history of headaches and this feels similar to her previous ones. She also has a sharp left-sided upper abdominal pain. She cannot identify any exacerbating or alleviating factors. She states last time she had this pain in her abdomen it was pancreatitis. Timing/Duration: 1-2 Days Severity: Moderate Associated Systoms: Cough (for 2 days only); No Fever/Chills; Nausea/Vomiting Allergies and Home Medications Allergies Coded Allergies: fentanyl (Verified Allergy, Unknown, 02/13/18) meperidine (Verified Allergy, Unknown, 08/20/17) penicillin G (Verified Allergy, Unknown, 08/20/17) vancomycin (Unverified Adverse Reaction, Intermediate, severe itching, ) Home Medications Cyanocobalamin 1,000 Mcg/Ml Inj, 1,000 MCG IJ MONTHLY, (Reported) Estradiol 2 Mg Tablet, 2 MG PO HS, (Reported) Fluoxetine HCl 40 Mg Capsule, 40 MG PO HS, (Reported) Hydrocodone/Acetaminophen 1 Each Tablet, 1 TAB PO Q6H Prescribed by: LINDSEY MARROQUIN on 02/13/18 1335 Hydrocortisone 30 Gm Cream.appl, TOP DAILY PRN for INFLAMMATION, (Reported) Lipase/Protease/Amylase 1 Each Tablet, PO UD, (Reported) TAKE 3 TABLETS WITH MEALS AND 2 TABLETS WITH SNACKS (HAS NOT STARTED TAKING DUE TO NOT BEING ABLE TO KEEP ANYTHING DOWN 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) Ondansetron 8 Mg Tab.rapdis, 8 MG PO BID, (Reported) Promethazine HCl 25 Mg Tablet, 25 MG PO Q6H PRN for NAUSEA/VOMITING-2ND LINE, ( Reported) Ropinirole HCl 4 Mg Tablet, 4 MG PO HS, (Reported) Patient Home Medication List Home Medication List Reviewed: Yes Review of Systems Review of Systems Constitutional: see HPI; No chills, No fever EENTM: see HPI Respiratory: see HPI, cough Cardiovascular: no symptoms reported Genitourinary: no symptoms reported Musculoskeletal: no symptoms reported Skin: no symptoms reported Psychiatric/Neurological: See HPI, Headache Hematologic/Lymphatic: No Symptoms Reported Immunological/Allergic: no symptoms reported Past Sllreir-Otsman-Czbvfr Hx Patient Social History Alcohol Use: Denies Use Recreational Drug Use: No Smoking Status: Former Smoker Type Used: Cigarettes 2nd Hand Smoke Exposure: No Recent Foreign Travel: No Contact w/Someone Who Travel: No Recent Infectious Disease Expo: No Recent Hopitalizations: Yes Immunizations Up To Date Tetanus Booster (TDap): Unknown PED Vaccines UTD: No Date of Pneumonia Vaccine: May 17, 2012 Date of Influenza Vaccine: Jul 03, 2012 Seasonal Allergies Seasonal Allergies: Yes (MILD) Past Medical History Surgeries: Yes (R KNEE SCOPE X5 L X2, NASAL FX, EGD/COLONOSCOPY, COCCYX REMOVAL , HERNIA) Abdominal, Adenoidectomy, Appendectomy, Gallbladder, 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, Nephrectomy, Orthopedic, Tonsillectomy Respiratory: Yes (HASNT USED INHALER IN > 4 YRS) Asthma Currently Using CPAP: No Currently Using BIPAP: No Cardiac: No Neurological: Yes (RESTLESS LEG SYNDROME) Headaches /Migraines 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: No (HX ENDOMETRIOSIS ) 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 Sexually Transmitted Disease: No HIV/AIDS: No Genitourinary: Yes (L KIDNEY REMOVED FOR TUMOR;) UTI-Chronic Gastrointestinal: Yes (ENLARGED LIVER/FATTY LIVER) Liver Disease/Jaundice, Pancreatitis, Polyps Musculoskeletal: Yes (COCCYX-REPAIRED, MAY HAVE SIGNS OF ARTHRITIS) Chronic Back Pain Endocrine: Yes (CHRONIC PANCREATITIS) HEENT: No Loss of Vision: Denies Hearing Impairment: Denies Cancer: Yes Kidney Did You Recieve Any Treatments: Yes What Type of Treatment Did You: Surgical Intervention Psychosocial: Yes Anxiety, Depression Integumentary: No Herpes Blood Disorders: No Adverse Reaction/Blood Tranf: No (N/A) Family Medical History Cardiovascular disease 19 FATHER Completed stroke 19 FATHER Diabetes mellitus 19 FATHER Hypercholesterolemia 19 FATHER 19 MOTHER Hypertension 19 FATHER 19 MOTHER Neoplasm 19 MOTHER Psychosocial problem 19 FATHER 19 MOTHER Cancer, Diabetes, Hypertension Physical Exam Vital Signs Vital Signs - First Documented 04/29/18 10:43 Temp 96.4 Pulse 74 Resp 18 B/P (MAP) 150/75 (100) Pulse Ox 97 O2 Delivery Room Air Capillary Refill : Less Than 3 Seconds Height, Weight, BMI Height: 5'3.00" Weight: 240lbs. 2.0oz. 108.693881bk; 45.8 BMI Method:Stated General Appearance: No Apparent Distress, WD/WN Eyes: Bilateral Eye Normal Inspection, Bilateral Eye PERRL, Bilateral Eye EOMI HEENT: PERRL/EOMI, TMs Normal Neck: Full Range of Motion, Normal Inspection Respiratory: Normal Breath Sounds, No Accessory Muscle Use, No Respiratory Distress Cardiovascular: Regular Rate, Rhythm, Normal Peripheral Pulses Gastrointestinal: Normal Bowel Sounds, Non Tender, Soft Extremity: Normal Capillary Refill, Normal Inspection Neurologic/Psychiatric: Alert, Oriented x3, No Motor/Sensory Deficits Skin: Normal Color, Warm/Dry Progress/Results/Core Measures Suspected Sepsis Recent Fever Within 48 Hours: No Infection Criteria Present: None New/Unexplained Altered Menta: No Sepsis Screen: No Definite Risk SIRS Temperature:96.4 Pulse: 74 Respiratory Rate: 18 Laboratory Tests 04/29/18 10:58: White Blood Count 7.1 Blood Pressure 150 /75 Mean: 100 Laboratory Tests 04/29/18 10:58: Creatinine 0.83, Platelet Count 267, Total Bilirubin 0.2 Results/Orders Lab Results Laboratory Tests Test 04/29/18 10:58 04/29/18 11:48 Range/Units White Blood Count 7.1 4.3-11.0 10^3/uL Red Blood Count 4.58 4.35-5.85 10^6/uL Hemoglobin 12.2 11.5-16.0 G/DL Hematocrit 39 35-52 % Mean Corpuscular Volume 85 80-99 FL Mean Corpuscular Hemoglobin 27 25-34 PG Mean Corpuscular Hemoglobin Concent 31 L 32-36 G/DL Red Cell Distribution Width 13.9 10.0-14.5 % Platelet Count 267 130-400 10^3/uL Mean Platelet Volume 9.3 7.4-10.4 FL Neutrophils (%) (Auto) 63 42-75 % Lymphocytes (%) (Auto) 29 12-44 % Monocytes (%) (Auto) 5 0-12 % Eosinophils (%) (Auto) 2 0-10 % Basophils (%) (Auto) 0 0-10 % Neutrophils # (Auto) 4.5 1.8-7.8 X 10^3 Lymphocytes # (Auto) 2.1 1.0-4.0 X 10^3 Monocytes # (Auto) 0.4 0.0-1.0 X 10^3 Eosinophils # (Auto) 0.2 0.0-0.3 10^3/uL Basophils # (Auto) 0.0 0.0-0.1 10^3/uL Sodium Level 141 135-145 MMOL/L Potassium Level 4.0 3.6-5.0 MMOL/L Chloride Level 108 H 98-107 MMOL/L Carbon Dioxide Level 23 21-32 MMOL/L Anion Gap 10 5-14 MMOL/L Blood Urea Nitrogen 15 7-18 MG/DL Creatinine 0.83 0.60-1.30 MG/DL Estimat Glomerular Filtration Rate > 60 BUN/Creatinine Ratio 18 Glucose Level 88 70-105 MG/DL Calcium Level 8.9 8.5-10.1 MG/DL Corrected Calcium 9.1 8.5-10.1 MG/DL Total Bilirubin 0.2 0.1-1.0 MG/DL Aspartate Amino Transf (AST/SGOT) 27 5-34 U/L Alanine Aminotransferase (ALT/SGPT) 19 0-55 U/L Alkaline Phosphatase 59 40-136 U/L Total Protein 7.1 6.4-8.2 GM/DL Albumin 3.7 3.2-4.5 GM/DL Lipase 44 8-78 U/L Urine Color YELLOW Urine Clarity CLEAR Urine pH 7 5-9 Urine Specific [place] 1.010 L 1.016-1.022 Urine Protein 1+ H NEGATIVE Urine Glucose (UA) NEGATIVE NEGATIVE Urine Ketones NEGATIVE NEGATIVE Urine Nitrite NEGATIVE NEGATIVE Urine Bilirubin NEGATIVE NEGATIVE Urine Urobilinogen NORMAL NORMAL MG/DL Urine Leukocyte Esterase NEGATIVE NEGATIVE Urine RBC (Auto) NEGATIVE NEGATIVE Urine RBC NONE /HPF Urine WBC RARE /HPF Urine Squamous Epithelial Cells 10-25 H /HPF Urine Crystals NONE /LPF Urine Bacteria FEW H /HPF Urine Casts NONE /LPF Urine Mucus NEGATIVE /LPF Urine Culture Indicated NO My Orders Orders - GEORGES FINN APRN Ketorolac Injection (Toradol Injection) (04/29/18 11:15) Prochlorperazine Injection (Compazine In (04/29/18 11:15) Diphenhydramine Injection (Benadryl Inje (04/29/18 11:15) Ua Culture If Indicated (04/29/18 11:10) Cbc With Automated Diff (04/29/18 11:10) Ns Iv 500 Ml (Sodium Chloride 0.9%) (04/29/18 11:15) Lipase (04/29/18 11:21) Comprehensive Metabolic Panel (04/29/18 11:21) Chest Pa/Lat (2 View) (04/29/18 11:21) Medications Given in ED Current Medications Medications Dose Ordered Sig/Neal Route Start Time Stop Time Status Last Admin Dose Admin Diphenhydramine HCl 25 mg ONCE ONCE IVP 04/29/18 11:15 04/29/18 11:16 DC 04/29/18 11:20 25 MG Ketorolac Tromethamine 30 mg ONCE ONCE IVP 04/29/18 11:15 04/29/18 11:16 DC 04/29/18 11:22 30 MG Prochlorperazine Edisylate 5 mg ONCE ONCE IV 04/29/18 11:15 04/29/18 11:16 DC 04/29/18 11:19 5 MG Vital Signs/I&O 04/29/18 04/29/18 10:43 12:37 Temp 96.4 Pulse 74 62 Resp 18 18 B/P (MAP) 150/75 (100) 120/70 (87) Pulse Ox 97 97 O2 Delivery Room Air Room Air Capillary Refill : Less Than 3 Seconds Blood Pressure Mean: 100 Departure Impression Primary Impression: Headache Qualified Codes: R51 - Headache Additional Impression: Abdominal pain, left upper quadrant Disposition: 01 HOME, SELF-CARE Condition: Improved Departure-Patient Inst. Decision time for Depature: 11:23 Referrals: CARMEN GIBBS MD (PCP/Family) Primary Care Physician Patient Instructions: HEADACHE Add. Discharge Instructions: 1. Return to ER for any concerns 2. Follow-up with your doctor next week All discharge instructions reviewed with patient and/or family. Voiced understanding. GEORGES FINN APRN Apr 29, 2018 11:24
[2018-04-29 11:39] LABS: ALANINE AMINOTRANSFERASE 19 U/L (0-55); ALBUMIN 3.7 GM/DL (3.2-4.5); BILIRUBIN,TOTAL 0.2 MG/DL (0.1-1.0); BUN/CREATININE RATIO 18; CALCIUM 8.9 MG/DL (8.5-10.1); CARBON DIOXIDE 23 MMOL/L (21-32); CHLORIDE 108 MMOL/L (98-107); CREATININE SERUM 0.83 MG/DL (0.60-1.30); GFR ESTIMATED > 60; GLUCOSE 88 MG/DL (70-105); LIPASE 44 U/L (8-78); SODIUM 141 MMOL/L (135-145); TOTAL PROTEIN 7.1 GM/DL (6.4-8.2)
[2018-04-29 11:47] LABS: ALKALINE PHOSPHATASE 59 U/L (40-136)
[2018-04-29 11:57] LABS: BILIRUBIN,URINE NEGATIVE (NEGATIVE); CLARITY,URINE CLEAR; COLOR,URINE YELLOW; GLUCOSE, URINE (UA) NEGATIVE (NEGATIVE); KETONES,URINE NEGATIVE (NEGATIVE); LEUKOCYTE ESTERASE ,URINE NEGATIVE (NEGATIVE); NITRITE,URINE NEGATIVE (NEGATIVE); PH,URINE 7 (5-9); PROTEIN,URINE 1+ (NEGATIVE); UROBILINOGEN,URINE NORMAL (NORMAL)
[2018-04-29 12:06] LABS: BACTERIA,URINE FEW /HPF; WBC,URINE RARE /HPF
--- NOTE | 2018-04-29 12:07 | Diagnostic Imaging Report ---
INDICATION: Left-sided chest wall pain with headache. FINDINGS: The lungs are clear. No effusion or pneumothorax. No free air beneath the diaphragms. The hilar and mediastinal contours are unremarkable. No chest wall pathology apparent. IMPRESSION: Unremarkable two-view chest. Dictated by: Dictated on workstation # [id number]
[2018-04-29 12:37] VITALS: BP 120/70
== END 2018-04-29 12:40 | disposition home or self-care (01) ==
LOC: EDUNIT# 09:29 → ER 09:32
DX: R51 Headache (principal); R10.12 Left upper quadrant pain; R07.89 Other chest pain; J45.909 Unspecified asthma, uncomplicated; G25.81 Restless legs syndrome; F41.9 Anxiety disorder, unspecified; F32.9 Major depressive disorder, single episode, unspecified; Z87.440 Personal history of urinary (tract) infections; Z86.010 Personal history of colon polyps; Z85.528 Personal history of other malignant neoplasm of kidney; Z82.49 Family history of ischemic heart disease and other diseases of the circulatory system; Z88.8 Allergy status to other drugs, medicaments and biological substances; Z88.0 Allergy status to penicillin; Z79.51 Long term (current) use of inhaled steroids; Z87.891 Personal history of nicotine dependence; Z90.89 Acquired absence of other organs; Z90.710 Acquired absence of both cervix and uterus; Z87.19 Personal history of other diseases of the digestive system; Z90.5 Acquired absence of kidney
CPT/HCPCS: 36415; 71046; 80053; 81000; 83690; 85025

== ENCOUNTER 2018-05-25 09:51 | Emergency (ER) | payer MEDICARE, MEDICAID ==
[~2018-05-25] VITALS: Ht 157.5 cm; Wt 113.5 kg
--- OUTSIDE RECORDS SUMMARY | 2018-05-25 09:58 | XMS REPORT | Encounter Summary ---
Author Author [facility] Organization [facility] Address Unknown Phone Unavailable Care Team Providers Care Chicken Boner Name Role Phone Michael Sutton MD Unavailable Unavailable Mary Whittington MD PCP Jessica Valera Unavailable Maggie Puente Unavailable Unavailable Mary Telles APRN Unavailable Bam Ritter MD Unavailable Radha Bo LPN Unavailable Unavailable Jose Sanchez MD Unavailable Reason for Referral * Radiology Services (Routine) Referred By Contact Referred To Contact Status Reason Specialty Diagnoses / Procedures Abel Poe MD [address] [place] [phone] New Request Radiology Diagnoses Left renal mass P rocedures CT ABDOMEN W CONTRAST CT ABDOMEN WO/W CONTRAST * Radiology Services (Routine) Referred By Contact Referred To Contact Status Reason Specialty Diagnoses / Procedures Abel Poe MD [address] [place] [id number] New Request Radiology Diagnoses Left renal mass P rocedures CT ABDOMEN W CONTRAST CT ABDOMEN WO/W CONTRAST * Radiology Services (Routine) Referred By Contact Referred To Contact Status Reason Specialty Diagnoses / Procedures Abel Poe MD [address] [place] [address] [place] [address] No Auth Needed Radiology Diagnoses Left renal mass P rocedures CT CHEST W CONTRAST CT CHEST WO/W CONTRAST CHG CT ABDOMEN W/CONTRAST MATERIAL * Radiology Services (Routine) Referred By Contact Referred To Contact Status Reason Specialty Diagnoses / [place] [address] [place] [address] [place] [address] [place] [place] [address] No Auth Needed Radiology Diagnoses Left renal mass P rocedures CT CHEST W CONTRAST CT CHEST WO/W CONTRAST CHG CT ABDOMEN W/CONTRAST MATERIAL Reason for Visit * Radiology Services (Routine) Referred By Contact Referred To Contact Status Reason Specialty Diagnoses / Procedures Abel Poe MD [address] [facility] [place] [address] No Auth Needed Radiology Diagnoses Left renal mass P rocedures CT CHEST W CONTRAST CT CHEST WO/W CONTRAST CHG CT ABDOMEN W/CONTRAST MATERIAL Encounter Details Care Team Description [place] [address] [place] [id number] [phone] Arrived 05/19/2018 Hospital [facility] Radiology 1st [address] [place], [place] [id number] Social History Date Tobacco Use Types Packs/Day Years Used Never Smoker Smokeless Tobacco: Never Used Alcohol Use Drinks/Week oz/Week Comments No Sex Assigned at Date Recorded Not on file Industry Job Start Date Occupation Not on file Not on file Not on file Travel End Travel History Travel Start No recent travel history available. as of this encounter Functional Status Date of Assessment Functional Status Response 04/09/2018 Does the patient have a hearing impairment: No 04/09/2018 Does the patient have a visual impairment: No 04/09/2018 Does the patient have impaired ambulation: No 04/09/2018 Does the patient have an activity of daily living No (ADL) impairment: 04/09/2018 Does the patient have an instrumental activity of No daily living (IADL) impairment: Date of Assessment Cognitive Status Response 04/09/2018 Does the patient have a cognitive impairment: Yes as of this encounter Medications at Time of Discharge Start Date End Date Medication Sig Dispensed Refills acetaminophen (TYLENOL) Take 1,000 mg 0 500 mg tablet by mouth every 6 hours as needed for Pain (patient does not take more than four per day). Max of 4,000 mg of acetaminophen in 24 hours. 02/20/2018 cyanocobalamin (VITAMIN INJECT 1 ML. 1 mL 3 B-12, RUBRAMIN) 1,000 INTRAMUSCULAR mcg/mL LY EVERY 30 injectionIndications: DAYS Medication monitoring encounter diphenhydrAMINE (BENADRYL Take 50 mg by 0 ALLERGY) 25 mg tablet mouth every 6 hours as needed. estradiol (ESTRACE) 2 mg Take 3 mg by 0 tablet mouth at bedtime daily. 04/11/2017 fluoxetine (PROZAC) 20 mg Take 2 90 capsule 3 capsule capsules by mouth at bedtime daily. 04/11/2017 HYDROcodone/acetaminophen Take 1 tablet 20 tablet 0 (NORCO) 7.5/325 mg by mouth tabletIndications: Pain every 6 hours as needed for Pain Indications: PAIN 12/13/2017 hydrocortisone 2.5% Apply 30 g 0 (PROCTO-MED HC) 2.5 % externally rectal cream and internally to area(s) twice to three times a day as needed. 12/11/2017 vastwg-[id number]-dyqctkm Take 3 300 tablet 5 (VIOKACE) 20,880-78,300- tablets by 78,300 unit tab mouth three times daily with meals. Take 2 with snacks. 04/09/[address](+) Take one 30 capsule 5 (PRILOSEC) 40 mg capsule capsule by mouth daily before breakfast. 09/02/2017 ondansetron (ZOFRAN ODT) Dissolve 1 60 tablet 2 8 mg rapid dissolve tablet by tabletIndications: mouth twice Chronic nausea, Chronic daily. Place vomiting on tongue to disolve. 04/09/2018 prochlorperazine maleate Take one-half 30 tablet 1 (COMPAZINE) 10 mg tablet tablet by mouth every 6 hours as needed for Nausea or Vomiting. rOPINIRole (REQUIP) 4 mg Take 4 mg by 0 tablet mouth at bedtime daily. as of this encounter Progress Notes * Abel Poe MD - 05/19/2018 3:41 PM WINDOW MACHINE OPERATOR Gave results of the CT scan. EL in this encounter Plan of Treatment Not on fileas of this encounter Procedures Comments Procedure Name Priority Date/Time Associated Diagnosis CT ABDOMEN W CONTRAST Routine 05/19/2018 Left renal mass 11:52 AM WINDOW MACHINE OPERATOR CT CHEST W CONTRAST Routine 05/19/2018 Left renal mass 11:52 AM WINDOW MACHINE OPERATOR BASIC METABOLIC PANEL Routine 05/19/2018 Left renal mass 11:14 AM WINDOW MACHINE OPERATOR in this encounter Results * CT ABDOMEN W CONTRAST (05/19/2018 11:52 AM WINDOW MACHINE OPERATOR) Impressions Performed At CHEST: [facility] RES[facility] 1. Stable left lower lobe pleural-based nodule since February 2017, continued attention on follow-up recommended given development since October 2011. No new or enlarging pulmonary nodule. 2. No thoracic lymphadenopathy. ABDOMEN: 1. Prior left nephrectomy without local tumor recurrence or abdominal metastatic disease. 2. Stable mild hepatosplenomegaly with diffuse hepatic steatosis. Finalized by Saravanan Caraballo M.D. on 05/19/2018 1:14 PM. Dictated by Saravanan Caraballo M.D. on 05/19/2018 12:43 PM. Narrative Performed At CT CHEST AND ABDOMEN [facility] Clinical Indication:Female, 33 years old. Left renal mass. Technique: Multiple contiguous axial images were obtained through the chest and abdomen following the administration of IV contrast material. Post processing coronal and sagittal reconstruction images were made from the axial images. IV contrast: Omnipaque Bowel contrast:Water Comparison: Prior CT November 2017. CHEST FINDINGS: Lower Neck: Unremarkable Axilla, Mediastinum and Betzy: No thoracic lymphadenopathy. Heart and Great Vessels: Heart is normal in size. No significant pericardial effusion. Thoracic aorta is normal caliber. Airway, Lungs and Pleura: Stable pleural-based nodule within the posterolateral left lower lobe adjacent to the left hemidiaphragm (image 125, series 3) since February 2017, though developed since October 2011. Few additional stable tiny bilateral pulmonary nodules, likely benign. No new or enlarging pulmonary nodule. No significant pleural effusion. Stable patchy areas of mosaic attenuation throughout both lungs suggestive of small airways disease. Chest Wall and Osseous Structures: No destructive osseous lesion. ABDOMEN FINDINGS: Liver and Biliary system: Stable mild hepatomegaly and mild diffuse hepatic steatosis. No focal hepatic lesion. Major portal veins are patent. Prior cholecystectomy. No significant pleural ductal dilatation. Spleen: Stable mild splenomegaly. No focal splenic lesion. Adrenal Glands and Kidneys: Adrenal glands and right kidney are unremarkable. Prior left nephrectomy. No evidence of a recurrent mass within the left nephrectomy bed. Pancreas and Retroperitoneum: Pancreas is unremarkable. Pancreatic divisum. No retroperitoneal lymphadenopathy. Aorta and Major Vessels: The aorta is normal caliber. Bowel, Mesentery and Peritoneal space: Visualized large and small bowel are normal caliber. No abdominal ascites. No mesenteric lymphadenopathy. Abdominal wall and Osseous Structures: No destructive osseous lesion. Procedure Note Interface, [facility] Results - 05/19/2018 1:17 PM WINDOW MACHINE OPERATOR CT CHEST AND ABDOMEN Clinical Indication: Female, 33 years old. Left renal mass. Technique: Multiple contiguous axial images were obtained through the chest and abdomen following the administration of IV contrast material. Post processing coronal and sagittal reconstruction images were made from the axial images. IV contrast: Omnipaque Bowel contrast: Water Comparison: Prior CT November 2017. CHEST FINDINGS: Lower Neck: Unremarkable Axilla, Mediastinum and Betzy: No thoracic lymphadenopathy. Heart and Great Vessels: Heart is normal in size. No significant pericardial effusion. Thoracic aorta is normal caliber. Airway, Lungs and Pleura: Stable pleural-based nodule within the posterolateral left lower lobe adjacent to the left hemidiaphragm (image 125, series 3) since February 2017, though developed since October 2011. Few additional stable tiny bilateral pulmonary nodules, likely benign. No new or enlarging pulmonary nodule. No significant pleural effusion. Stable patchy areas of mosaic attenuation throughout both lungs suggestive of small airways disease. Chest Wall and Osseous Structures: No destructive osseous lesion. ABDOMEN FINDINGS: Liver and Biliary system: Stable mild hepatomegaly and mild diffuse hepatic steatosis. No focal hepatic lesion. Major portal veins are patent. Prior cholecystectomy. No significant pleural ductal dilatation. Spleen: Stable mild splenomegaly. No focal splenic lesion. Adrenal Glands and Kidneys: Adrenal glands and right kidney are unremarkable. Prior left nephrectomy. No evidence of a recurrent mass within the left nephrectomy bed. Pancreas and Retroperitoneum: Pancreas is unremarkable. Pancreatic divisum. No retroperitoneal lymphadenopathy. Aorta and Major Vessels: The aorta is normal caliber. Bowel, Mesentery and Peritoneal space: Visualized large and small bowel are normal caliber. No abdominal ascites. No mesenteric lymphadenopathy. Abdominal wall and Osseous Structures: No destructive osseous lesion. IMPRESSION CHEST: 1. Stable left lower lobe pleural-based nodule since February 2017, continued attention on follow-up recommended given development since October 2011. No new or enlarging pulmonary nodule. 2. No thoracic lymphadenopathy. ABDOMEN: 1. Prior left nephrectomy without local tumor recurrence or abdominal metastatic disease. 2. Stable mild hepatosplenomegaly with diffuse hepatic steatosis. Finalized by Saravanan Caraballo M.D. on 05/19/2018 1:14 PM. Dictated by Saravanan Caraballo M.D. on 05/19/2018 12:43 PM. Performing Organization Address City/State/Zipcode Phone Number [facility]ULTS * CT CHEST W CONTRAST (05/19/2018 11:52 AM WINDOW MACHINE OPERATOR) Impressions Performed At CHEST: [facility] RES[facility] 1. Stable left lower lobe pleural-based nodule since February 2017, continued attention on follow-up recommended given development since October 2011. No new or enlarging pulmonary nodule. 2. No thoracic lymphadenopathy. ABDOMEN: 1. Prior left nephrectomy without local tumor recurrence or abdominal metastatic disease. 2. Stable mild hepatosplenomegaly with diffuse hepatic steatosis. Finalized by Saravanan Caraballo M.D. on 05/19/2018 1:14 PM. Dictated by Saravanan Caraballo M.D. on 05/19/2018 12:43 PM. Narrative Performed At CT CHEST AND ABDOMEN [facility] RESULTS Clinical Indication:Female, 33 years old. Left renal mass. Technique: Multiple contiguous axial images were obtained through the chest and abdomen following the administration of IV contrast material. Post processing coronal and sagittal reconstruction images were made from the axial images. IV contrast: Omnipaque Bowel contrast:Water Comparison: Prior CT November 2017. CHEST FINDINGS: Lower Neck: Unremarkable Axilla, Mediastinum and Betzy: No thoracic lymphadenopathy. Heart and Great Vessels: Heart is normal in size. No significant pericardial effusion. Thoracic aorta is normal caliber. Airway, Lungs and Pleura: Stable pleural-based nodule within the posterolateral left lower lobe adjacent to the left hemidiaphragm (image 125, series 3) since February 2017, though developed since October 2011. Few additional stable tiny bilateral pulmonary nodules, likely benign. No new or enlarging pulmonary nodule. No significant pleural effusion. Stable patchy areas of mosaic attenuation throughout both lungs suggestive of small airways disease. Chest Wall and Osseous Structures: No destructive osseous lesion. ABDOMEN FINDINGS: Liver and Biliary system: Stable mild hepatomegaly and mild diffuse hepatic steatosis. No focal hepatic lesion. Major portal veins are patent. Prior cholecystectomy. No significant pleural ductal dilatation. Spleen: Stable mild splenomegaly. No focal splenic lesion. Adrenal Glands and Kidneys: Adrenal glands and right kidney are unremarkable. Prior left nephrectomy. No evidence of a recurrent mass within the left nephrectomy bed. Pancreas and Retroperitoneum: Pancreas is unremarkable. Pancreatic divisum. No retroperitoneal lymphadenopathy. Aorta and Major Vessels: The aorta is normal caliber. Bowel, Mesentery and Peritoneal space: Visualized large and small bowel are normal caliber. No abdominal ascites. No mesenteric lymphadenopathy. Abdominal wall and Osseous Structures: No destructive osseous lesion. Procedure Note Interface, [facility] Results - 05/19/2018 1:17 PM WINDOW MACHINE OPERATOR CT CHEST AND ABDOMEN Clinical Indication: Female, 33 years old. Left renal mass. Technique: Multiple contiguous axial images were obtained through the chest and abdomen following the administration of IV contrast material. Post processing coronal and sagittal reconstruction images were made from the axial images. IV contrast: Omnipaque Bowel contrast: Water Comparison: Prior CT November 2017. CHEST FINDINGS: Lower Neck: Unremarkable Axilla, Mediastinum and Betzy: No thoracic lymphadenopathy. Heart and Great Vessels: Heart is normal in size. No significant pericardial effusion. Thoracic aorta is normal caliber. Airway, Lungs and Pleura: Stable pleural-based nodule within the posterolateral left lower lobe adjacent to the left hemidiaphragm (image 125, series 3) since February 2017, though developed since October 2011. Few additional stable tiny bilateral pulmonary nodules, likely benign. No new or enlarging pulmonary nodule. No significant pleural effusion. Stable patchy areas of mosaic attenuation throughout both lungs suggestive of small airways disease. Chest Wall and Osseous Structures: No destructive osseous lesion. ABDOMEN FINDINGS: Liver and Biliary system: Stable mild hepatomegaly and mild diffuse hepatic steatosis. No focal hepatic lesion. Major portal veins are patent. Prior cholecystectomy. No significant pleural ductal dilatation. Spleen: Stable mild splenomegaly. No focal splenic lesion. Adrenal Glands and Kidneys: Adrenal glands and right kidney are unremarkable. Prior left nephrectomy. No evidence of a recurrent mass within the left nephrectomy bed. Pancreas and Retroperitoneum: Pancreas is unremarkable. Pancreatic divisum. No retroperitoneal lymphadenopathy. Aorta and Major Vessels: The aorta is normal caliber. Bowel, Mesentery and Peritoneal space: Visualized large and small bowel are normal caliber. No abdominal ascites. No mesenteric lymphadenopathy. Abdominal wall and Osseous Structures: No destructive osseous lesion. IMPRESSION CHEST: 1. Stable left lower lobe pleural-based nodule since February 2017, continued attention on follow-up recommended given development since October 2011. No new or enlarging pulmonary nodule. 2. No thoracic lymphadenopathy. ABDOMEN: 1. Prior left nephrectomy without local tumor recurrence or abdominal metastatic disease. 2. Stable mild hepatosplenomegaly with diffuse hepatic steatosis. Finalized by Saravanan Caraballo M.D. on 05/19/2018 1:14 PM. Dictated by Saravanan Caraballo M.D. on 05/19/2018 12:43 PM. Performing Organization Address City/State/Zipcode Phone Number [facility] RESULTS * BASIC METABOLIC PANEL (05/19/2018 11:14 AM WINDOW MACHINE OPERATOR) Sodium 136 (L) 137 - 147 MMOL/L [facility] Potassium 3.8 3.5 - 5.1 MMOL/L [facility] Chloride 104 98 - 110 MMOL/L [facility] CO2 27 21 - 30 MMOL/L [facility] Anion Gap 5 3 - 12 [facility] Glucose 95 70 - 100 MG/DL [facility] Blood Urea Nitrogen 15 7 - 25 MG/DL [facility] Creatinine 0.78 0.4 - 1.00 MG/DL [facility] Calcium 9.0 8.5 - 10.6 MG/DL [facility] eGFR [...] for questions. Specimen Blood Performing Organization Address City/State/Zipcode Phone Number [facility] [address] [place] [address] in this encounter Visit Diagnoses Diagnosis Left renal mass Unspecified disorder of kidney and ureter in this encounter Administered Medications Action Date Dose Rate Site Medication Order MAR Action 05/19/2018 11:46 AM WINDOW MACHINE OPERATOR 100 mL iohexol (OMNIPAQUE-350) 350 mg/mL Given injection 100 mL 100 mL, Intravenous, ONCE, 1 dose, 05/19/18 at 1100, NOTE: This is a HIGH ALERT Medication., 05/19/2018 11:47 AM WINDOW MACHINE OPERATOR 50 mL sodium chloride PF 0.9% injection 50 mL Given 50 mL, Intravenous, ONCE, 1 dose, Sat05/19/18 at 1100, Intra-procedure (IR) in this encounter
--- OUTSIDE RECORDS SUMMARY | 2018-05-25 09:58 | XMS REPORT | Encounter Summary ---
Author Author [facility] Organization [facility] Address Unknown Phone Unavailable Care Team Providers Care Administrative Fellow Name Role Phone Michael Sutton MD Unavailable Unavailable Mary Whittington MD PCP Jessica Valera Unavailable Maggie Puente Unavailable Unavailable Mary Telles APRN Unavailable Bam Ritter MD Unavailable Radha Bo LPN Unavailable Unavailable Jose Sanchez MD Unavailable Encounter Details Care Team Description Date Type Department Abel Poe MD [address] [place] [address] Left renal mass (Primary Dx) 04/29/2018 Orders Only [facility] [address] [phone] Social History Date Tobacco Use Types Packs/Day [...] cognitive impairment: Yes as of this encounter Plan of Treatment Not on fileas of this encounter Results * BASIC METABOLIC PANEL (05/19/2018 11:14 AM CENTERLESS GRINDER) Sodium 136 (L) 137 - 147 MMOL/L [facility] Potassium 3.8 3.5 - 5.1 MMOL/L [...] [facility] eGFR Non >60 >60 mL/min [facility] Comment: The eGFR is not validated for use in drug dosing adjustments.Continue to use estimated creatinine clearance per dosing reference text.Please contact the Clinical Pharmacist for questions. eGFR >60 >60 mL/min [facility] Comment: The eGFR is not validated for use in drug dosing adjustments.Continue to use estimated creatinine clearance per dosing reference text.Please contact the Clinical Pharmacist for questions. Specimen Blood Performing Organization Address City/State/Zipcode Phone Number [facility] [address] [place] [address] in this encounter Visit Diagnoses Diagnosis Left renal mass - Primary Unspecified disorder of kidney and ureter in this encounter
--- OUTSIDE RECORDS SUMMARY | 2018-05-25 09:58 | XMS REPORT | Encounter Summary ---
Author Author [facility] Organization [facility] Address Unknown Phone Unavailable Care Team Providers Care Loss Prevention Guard Name Role Phone Michael Sutton MD Unavailable Unavailable Mary Whittington MD PCP Jessica Valera Unavailable Maggie Puente Unavailable Unavailable Mary Telles APRN Unavailable Bam Ritter MD Unavailable Radha Bo LPN Unavailable Unavailable Jose Sanchez MD Unavailable Reason for Visit * Reason Comments Blood in stools Encounter Details Care Team Description Date Type Department Randy Nunez MD [address] [place] [address] Blood in stools 03/27/2018 Telephone [facility] [address] [place] [address] Social History Date Tobacco Use Types Packs/Day [...] Status Date of Assessment Functional Status Response 06/03/2017 Does the patient have a hearing impairment: No 06/03/2017 Does the patient have a visual impairment: No 06/03/2017 Does the patient have impaired ambulation: No 06/03/2017 Does the patient have an activity of daily living No (ADL) impairment: 06/03/2017 Does the patient have an instrumental activity of No daily living (IADL) impairment: Date of Assessment Cognitive Status Response 06/03/2017 Does the patient have a cognitive impairment: Yes as of this encounter Miscellaneous Notes * Telephone Encounter - Arleen Leone RN - 03/27/2018 4:16 PM CDT Patient calling today to report blood in stool. Patient discussed with Dr. Nunez who is recommending local evaluation in ED/PCP. Patient states has call into Dr. Whittington's office. Aware of recommendation to see evaluation today. in this encounter Plan of Treatment Not on fileas of this encounter Visit Diagnoses Not on filein this encounter
--- OUTSIDE RECORDS SUMMARY | 2018-05-25 09:58 | XMS REPORT | Encounter Summary ---
Author Author [facility] Organization [facility] Address Unknown Phone Unavailable Care Team Providers Care Nurseryperson Name Role Phone Michael Sutton MD Unavailable Unavailable Mary Whittington MD PCP Jessica Valera Unavailable Maggie Puente Unavailable Unavailable Mary Telles APRN Unavailable Bam Ritter MD Unavailable Radha Bo STEEL PAN FORM PLACING SUPERVISOR Unavailable Unavailable Jose Sanchez MD Unavailable Reason for Referral * Radiology Services (Routine) Referred By Contact Referred To Contact Status Reason Specialty Diagnoses / [place] [address] [place] [id number] New Request Radiology Diagnoses Malignant neoplasm of kidney, unspecified laterality (HCC) P rocedures CT ABDOMEN W CONTRAST * Radiology Services (Routine) Referred By Contact Referred To Contact Status Reason Specialty Diagnoses / Procedures Abel Poe MD [address] [facility] [address] [place] [id number] New Request Radiology Diagnoses Malignant neoplasm of kidney, unspecified laterality (HCC) P rocedures CT CHEST W CONTRAST Reason for Visit * Reason Comments Heme/Onc Care Encounter Details Care Team Description [place] [address] [place] [address] [place] [address] Malignant neoplasm of kidney, unspecified laterality (HCC) ( Primary Dx) 05/19/2018 Office Visit [facility] [address] [place] [address] Social History Date Tobacco Use Types Packs/Day Years Used Never Smoker Smokeless Tobacco: Never Used Alcohol Use Drinks/Week oz/Week Comments No Sex Assigned at Date Recorded Not on file Industry Job Start Date Occupation Not on file Not on file Not on file Travel End Travel History Travel Start No recent travel history available. as of this encounter Last Filed Vital Signs Time Taken Vital Sign Reading 05/19/2018 1:06 PM INTERN RETAIL Blood Pressure 135/79 05/19/2018 1:06 PM INTERN RETAIL Pulse 81 05/19/2018 1:06 PM INTERN RETAIL Temperature 36.6 C (97.9 F) 05/19/2018 1:06 PM INTERN RETAIL Respiratory Rate 18 05/19/2018 1:06 PM INTERN RETAIL Oxygen Saturation 99% - Inhaled Oxygen - Concentration 05/19/2018 1:06 PM INTERN RETAIL Weight 121.6 kg (268 lb) 05/19/2018 1:06 PM INTERN RETAIL Height 157.7 cm (5' 2.09") 05/19/2018 1:06 PM INTERN RETAIL Body Mass Index 48.88 in this encounter Functional Status Date of Assessment [...] cognitive impairment: Yes as of this encounter Progress Notes * Abel Poe MD - 05/19/2018 1:30 PM INTERN RETAIL Name: Janeth Rajput : 1985 AGE: 33 y.o. DATE OF SERVICE: 05/19/2018 Subjective: Reason for Visit: Heme/Onc Care Janeth Rajput is a 33 y.o. female. Cancer Staging No matching staging information was found for the patient. History of Present IllnessS/P left lap nephrectomhy 03/2017 for Stage T1A RCC, negative margins. Trouble voiding. +Pain, "charley horse", can't wear [...] for several months per our radiology report. 05/19/2018: In December 2017, had another surgery. Patient states the mesh had been into the bowel, this was fixed and another drain was placed. Since has been removed. No drain or open wound anymore. Having decreased urination, but will have some urgency. This is new. Had UA which was negative, the smell is strong. No caffeine. Bowels go back and forth between constipation/diarrhea. Not wearing a binder, was wearing out too fast. No appetite. PMHx: Past Medical History: Diagnosis Date Abdominal [...] by Abel Poe MD at Main OR/Periop UPPER GASTROINTESTINAL ENDOSCOPY N/A 01/31/2018 ESOPHAGOGASTRODUODENOSCOPY ENDOSCOPIC ULTRASOUND performed by Hal Sparks MD at ENDO/GI CELIAC PLEXUS BLOCK HX KNEE SURGERY -2011, removal of "extra bone" HX TONSILLECTOMY Allergies: Allergies Allergen Reactions Penicillins UNKNOWN Demerol (Pf) [Meperidine (Pf)] ITCHING Fentanyl ITCHING Vancomycin ITCHING and REDNESS SocHx: Social History Social History Marital status: [...] Grandfather Heart Disease Other Review of Systems Rest of comprehensive ROS is negative Objective: [...] to three times a day as needed. lyjnql-kmpoodjx-gpplmiw (VIOKACE) 20,880-78,300- 78,300 unit tab Take 3 tablets by mouth three times daily with meals. Take [address](+) (PRILOSEC) 40 mg capsule Take one capsule by mouth daily before breakfast. ondansetron (ZOFRAN ODT) 8 mg rapid dissolve tablet Dissolve 1 tablet by mouth twice daily. Place on tongue to disolve. prochlorperazine maleate (COMPAZINE) 10 mg tablet Take one-half tablet by mouth every 6 hours as needed for Nausea or Vomiting. rOPINIRole (REQUIP) 4 mg tablet Take 4 mg by mouth at bedtime daily. Vitals: 05/19/18 1306 BP: 135/79 Pulse: 81 Resp: 18 Temp: 36.6 C (97.9 F) TempSrc: Oral SpO2: 99% Weight: 121.6 kg (268 lb) Height: 157.7 cm (62.09") Body mass index is 48.88 kg/m. Pain Score: Zero Pain Addressed: N/A Patient Evaluated for a Clinical Trial: No treatment clinical trial available for this patient. Eastern Cooperative Oncology Group performance status is 1, Restricted in physically strenuous activity but ambulatory and able to carry out work of a light or sedentary nature, e.g., light house work, office work. Physical Exam alert in NAD Breathing unlabored Neuro grossly intact Abdomen obese, previous incision is well healed Basic Metabolic Profile Lab Results Component Value Date/Time NA 136 (L) 05/19/2018 11:14 AM K 3.8 05/19/2018 11:14 AM CA 9.0 05/19/2018 11:14 AM CL 104 05/19/2018 11:14 AM CO2 27 05/19/2018 11:14 AM GAP 5 05/19/2018 11:14 AM Lab Results Component Value Date/Time BUN 15 05/19/2018 11:14 AM CR 0.8 05/19/2018 11:18 AM CR 0.78 05/19/2018 11:14 AM GLU 95 05/19/2018 11:14 AM Assessment and Plan: CT C/A are pending. RTC in 1 year with repeat imaging per AUA guidelines unless something abnormal. RTC with labs. Went over her urgency and conservative management. Discussed the pros and cons of anticholinergics, elected to not pursue at this time. Patient will continue to follow with GI and her surgeon close to home. in this encounter Plan of Treatment Order Schedule Name Priority Associated Diagnoses Expected: 05/18/2019 (Approximate), Expires: 05/19/2020 CT CHEST W CONTRAST Routine Malignant neoplasm of kidney, unspecified laterality (HCC) Expected: 05/18/2019 (Approximate), Expires: 05/19/2020 CT ABDOMEN W CONTRAST Routine Malignant neoplasm of kidney, unspecified laterality (HCC) Expected: 05/18/2019 (Approximate), Expires: 05/19/2020 BASIC METABOLIC PANEL Routine Malignant neoplasm of kidney, unspecified laterality (HCC) as of this encounter Procedures Comments Procedure Name Priority Date/Time Associated Diagnosis POC CREATININE, RAD 05/19/2018 11:18 AM INTERN RETAIL in this encounter Results * POC CREATININE, RAD (05/19/2018 11:18 AM INTERN RETAIL) Creatinine, POC 0.8 0.4 - 1.00 MG/DL [facility] Performing Organization Address City/State/Zipcode Phone Number MAIN LAB [address] [place] [address] in this encounter Visit Diagnoses Diagnosis Malignant neoplasm of kidney, unspecified laterality (HCC) - Primary in this encounter
--- OUTSIDE RECORDS SUMMARY | 2018-05-25 09:58 | XMS REPORT | Encounter Summary ---
Author Author [facility] Organization [facility] Address Unknown Phone Unavailable Care Team Providers Care Agronomy Manager Name Role Phone Michael Sutton MD Unavailable Unavailable Mary Whittington MD PCP Jessica Valera Unavailable Maggie Puente Unavailable Unavailable Mary Telles APRN Unavailable Bma Ritter MD Unavailable Radha Bo LPN Unavailable Unavailable Jose Sanchez MD Unavailable Encounter Details Care Team Description Date Type Department [place] [address] [place] [address] Arrived 05/19/2018 Hospital [facility] Encounter [facility] [address] [place], [place] [id number] Social History Date Tobacco Use Types Packs/Day [...] three times a day as needed. 12/11/2017 stnahg-uectlriy-lstpzuq Take 3 300 tablet 5 (VIOKACE) 20,880-78,300- [...] at bedtime daily. as of this encounter Plan of Treatment Not on fileas of this encounter Visit Diagnoses Not on filein this encounter
--- OUTSIDE RECORDS SUMMARY | 2018-05-25 09:58 | XMS REPORT | Clinical Summary ---
Author Author [facility] Organization [facility] Address Unknown Phone Unavailable Care Team Providers Care School Supervisor Name Role Phone Michael Sutton MD [...] in the Health Information Management department at [phone] for further assistance in locating additional records.[facility] Allergies Comments Active Allergy Reactions Severity Noted Date Meperidine (Pf) ITCHING Low 09/20/2011 Fentanyl ITCHING Low 09/20/2011 Penicillins UNKNOWN 09/20/2011 Vancomycin ITCHING, Low 04/09/2018 REDNESS Medications End Date Status Medication Sig Dispensed Refills Start Date Active estradiol (ESTRACE) 2 mg Take 3 mg by 0 tablet mouth at bedtime daily. Active diphenhydrAMINE (BENADRYL Take 50 mg by 0 ALLERGY) 25 mg tablet mouth every 6 hours as needed. Active rOPINIRole (REQUIP) 4 mg Take 4 mg by 0 tablet mouth at bedtime daily. Active fluoxetine (PROZAC) 20 mg Take 2 90 capsule 3 capsule capsules by 7 mouth at bedtime daily. Active HYDROcodone/acetaminophen Take 1 tablet 20 tablet 0 (NORCO) 7.5/325 mg by mouth 7 tabletIndications: Pain every 6 hours as needed for Pain Indications: PAIN Active acetaminophen (TYLENOL) Take 1,000 mg 0 500 mg tablet by mouth every 6 hours as needed for Pain (patient does not take more than four per day). Max of 4,000 mg of acetaminophen in 24 hours. Active ondansetron (ZOFRAN ODT) Dissolve 1 60 tablet 2 8 mg rapid dissolve tablet by 8 tabletIndications: mouth twice Chronic nausea, Chronic daily. Place vomiting on tongue to disolve. Active yamdbe-uvkgkydo-wgsirgf Take 3 300 tablet 5 (VIOKACE) 20,880-78,300- tablets by 8 78,300 unit tab mouth three times daily with meals. Take 2 with snacks. Active hydrocortisone 2.5% Apply 30 g 0 (PROCTO-MED HC) 2.5 % externally 8 rectal cream and internally to area(s) twice to three times a day as needed. Active cyanocobalamin (VITAMIN INJECT 1 ML. 1 mL 3 B-12, RUBRAMIN) 1,000 INTRAMUSCULAR 8 mcg/mL LY EVERY 30 injectionIndications: DAYS Medication monitoring encounter Active prochlorperazine maleate Take one-half 30 tablet 1 (COMPAZINE) 10 mg tablet tablet by 8 mouth every 6 hours as needed for Nausea or Vomiting. Active omeprazole DR(+) Take one 30 capsule 5 (PRILOSEC) 40 mg capsule capsule by 8 mouth daily before breakfast. Active Problems Problem Noted Date Other chronic pancreatitis 01/14/2018 Overview: Added automatically from request for surgery [id number] Intractable vomiting with nausea 01/14/2018 Overview: Added automatically from request for surgery [id number] Left renal mass 04/10/2017 Renal mass 03/21/2017 Overview: Added automatically from request for surgery [id number] 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 06/24/2013 Overview: S/P FREDI LINO 11/27 Depression 06/24/2013 S/P cholecystectomy 06/24/2013 Overview: 2007 S/P appendectomy 06/24/2013 Overview: November 2012 Pancreatitis 10/23/2011 Encounters Care Team Description Date Type Specialty Abel Poe MD Malignant neoplasm of kidney, unspecified laterality (HCC) ( Primary Dx) 05/19/2018 Office Visit Oncology Abel Poe MD Arrived 05/19/2018 Hospital Radiology Encounter Abel Poe MD Arrived 05/19/2018 Hospital Radiology Encounter Abel Poe MD Left renal mass (Primary Dx) 04/29/2018 Orders Only Oncology Randy Nunez MD Vomiting, intractability of vomiting not specified, presence of nausea not specified, unspecified vomiting type (Primary Dx); Chronic pancreatitis, unspecified pancreatitis type (HCC) 04/09/2018 Office Visit Gastroenterology Randy Nunez MD Blood in stools 03/27/2018 Telephone Gastroenterology 03/02/2018 Hospital Radiology Encounter from Last 3 Months Family History Medical History Relation Name Comments Diabetes Father Hypertension Father Cancer-Colon Maternal Grandfather Cancer Maternal Cervix Grandmother Cancer-Ovarian Maternal Grandmother Arthritis-rheumatoid Mother Cancer Mother Cervix Cancer-Ovarian Mother Hypertension Mother Heart Disease Other Relation Name Status Comments Father Alive Maternal Grandfather Maternal Grandmother Mother Alive Other Social History Date Tobacco Use Types Packs/Day Years Used Never Smoker Smokeless Tobacco: Never Used Alcohol Use Drinks/Week oz/Week Comments No Sex Assigned at Date Recorded Not on file Industry Job Start Date Occupation Not on file Not on file Not on file Travel End Travel History Travel Start No recent travel history available. Last Filed Vital Signs Time Taken Vital Sign Reading 05/19/2018 1:06 PM PATIENT ACCESS REPRESENTATIVE Blood Pressure 135/79 05/19/2018 1:06 PM PATIENT ACCESS REPRESENTATIVE Pulse 81 05/19/2018 1:06 PM PATIENT ACCESS REPRESENTATIVE Temperature 36.6 C (97.9 F) 05/19/2018 1:06 PM PATIENT ACCESS REPRESENTATIVE Respiratory Rate 18 05/19/2018 1:06 PM PATIENT ACCESS REPRESENTATIVE Oxygen Saturation 99% - Inhaled Oxygen - Concentration 05/19/2018 1:06 PM PATIENT ACCESS REPRESENTATIVE Weight 121.6 kg (268 lb) 05/19/2018 1:06 PM PATIENT ACCESS REPRESENTATIVE Height 157.7 cm (5' 2.09") 05/19/2018 1:06 PM PATIENT ACCESS REPRESENTATIVE Body Mass Index 48.88 Plan of Treatment Health Maintenance Due Date Last Done Comments PHYSICAL (COMPREHENSIVE) 1991 EXAM HIV SCREENING 1999 DTAP/TDAP VACCINES (1 - 2002 Tdap) CERVICAL CANCER SCREENING 2014 INFLUENZA VACCINE 01/15/2018 Procedures Comments Procedure Name Priority Date/Time Associated Diagnosis CT ABDOMEN W CONTRAST Routine 05/19/2018 Left renal mass 11:52 AM PATIENT ACCESS REPRESENTATIVE CT CHEST W CONTRAST Routine 05/19/2018 Left renal mass 11:52 AM PATIENT ACCESS REPRESENTATIVE POC CREATININE, RAD 05/19/2018 11:18 AM PATIENT ACCESS REPRESENTATIVE BASIC METABOLIC PANEL Routine 05/19/2018 Left renal mass 11:14 AM PATIENT ACCESS REPRESENTATIVE CT ABD/PEL EXTERNAL Routine 03/02/2018 Diagnosis unknown IMAGING 12:00 AM CDT from Last 3 Months Results * CT ABDOMEN W CONTRAST (05/19/2018 11:52 AM PATIENT ACCESS REPRESENTATIVE) Impressions Performed At CHEST: [facility] RAD RESULTS [...] Interface, Radiant Results - 05/19/2018 1:17 PM PATIENT ACCESS REPRESENTATIVE CT CHEST AND ABDOMEN Clinical Indication: Female, [...] CT CHEST W CONTRAST (05/19/2018 11:52 AM PATIENT ACCESS REPRESENTATIVE) Impressions Performed At CHEST: [facility] RAD RESULTS [...] Interface, Radiant Results - 05/19/2018 1:17 PM PATIENT ACCESS REPRESENTATIVE CT CHEST AND ABDOMEN Clinical Indication: Female, [...] on 05/19/2018 12:43 PM. Performing Organization Address City/[facility]/Zipcode Phone Number RAD RESULTS * POC CREATININE, RAD (05/19/2018 11:18 AM PATIENT ACCESS REPRESENTATIVE) Creatinine, POC 0.8 0.4 - 1.00 MG/DL [facility] Performing Organization Address [facility] Phone Number [facility] [address] [place] [address] * BASIC METABOLIC PANEL (05/19/2018 11:14 AM PATIENT ACCESS REPRESENTATIVE) Sodium 136 (L) 137 - 147 MMOL/L [...] for questions. Specimen Blood Performing Organization Address [facility] Phone Number [facility] [address] [place] [address] * CT ABD/PEL EXTERNAL IMAGING (03/02/2018 12:00 AM CDT) Narrative Performed At This order has been auto finalized and does not contain a result. from Last 3 Months Insurance Payer Benefit Subscriber ID Type Phone Address Plan / Group MEDICARE MEDICARE xxxxxxxxxxx Medicare PART A AND B [employer] MEDICAID ID [employer] xxxxxxxxxxx Medicaid Advance Directives Patient has advance care planning documents, and code status on file. For more information, please contact: [facility] [address] [place] [address] Date Inactivated Comments Code Status Date Activated 04/11/2017 4:57 PM Full Code 04/10/2017 5:31 PM Provider has discussed Code Status No, discussion not w/Patient or Family? necessary based on Dx
--- OUTSIDE RECORDS SUMMARY | 2018-05-25 09:58 | XMS REPORT | Encounter Summary ---
Author Author [facility] Organization [facility] Address Unknown Phone Unavailable Care Team Providers Care Cloth Napping Supervisor Name Role Phone Michael Sutton MD Unavailable Unavailable Mary Whittington MD PCP Jessica Valera Unavailable Maggie Puente Unavailable Unavailable Mary Telles APRN Unavailable Bam Ritter MD Unavailable Radha Bo LPN Unavailable Unavailable Jose Sanchez MD Unavailable Encounter Details Care Team Description Date Type Department 03/02/2018 Hospital [facility] [address] [place] [id number] Social History Date Tobacco Use Types Packs/Day [...] three times a day as needed. 12/11/2017 igmrop-bfpnvgpy-jkdvxkr Take 3 300 tablet 5 (VIOKACE) 20,880-78,300- tablets by 78,300 unit tab mouth three times daily with meals. Take 2 with snacks. 09/02/2017 ondansetron (ZOFRAN ODT) Dissolve 1 60 tablet 2 8 mg rapid dissolve tablet by tabletIndications: mouth twice Chronic nausea, Chronic daily. Place vomiting on tongue to disolve. rOPINIRole (REQUIP) 4 mg Take 4 mg by 0 tablet mouth at bedtime daily. as of this encounter Plan of Treatment Not on fileas of this encounter Procedures Comments Procedure Name Priority Date/Time Associated Diagnosis CT ABD/PEL EXTERNAL Routine 03/02/2018 Diagnosis unknown IMAGING 12:00 AM CDT in this encounter Results * CT ABD/PEL EXTERNAL IMAGING (03/02/2018 12:00 AM CDT) Narrative Performed At This order has been auto finalized and does not contain a result. in this encounter Visit Diagnoses Diagnosis Diagnosis unknown Other unknown and unspecified cause of morbidity or mortality in this encounter
--- OUTSIDE RECORDS SUMMARY | 2018-05-25 09:58 | XMS REPORT | Encounter Summary ---
Author Author [facility] Organization [facility] Address Unknown Phone Unavailable Care Team Providers Care Document Control Clerk Name Role Phone Michael Sutton MD Unavailable Unavailable Mary Whittington MD PCP Jessica Valera Unavailable Maggie Puente Unavailable Unavailable Mary Telles BLOCK CHOPPER HAND Unavailable Bam Ritter MD Unavailable Radha Bo LPN Unavailable Unavailable Jose Sanchez MD Unavailable Reason for Visit * Reason Comments Nausea Vomiting Abdominal pain Abdominal Distention Diarrhea Constipation Blood in stools Encounter Details Care Team Description Date Type Department Randy Nunez MD [address] [place] [address] Vomiting, intractability of vomiting not specified, presence of nausea not specified, unspecified vomiting type (Primary Dx); Chronic pancreatitis, unspecified pancreatitis type (HCC) 04/09/2018 Office Visit [facility] [address] [place] [address] Social History Date Tobacco Use [...] Vital Signs Time Taken Vital Sign Reading 04/09/2018 9:45 AM CDT Blood Pressure 122/80 04/09/2018 9:45 AM CDT Pulse 72 04/09/2018 9:45 AM CDT Temperature 36.5 C (97.7 F) 04/09/2018 9:45 AM CDT Respiratory Rate 16 - Oxygen Saturation - - Inhaled Oxygen - Concentration 04/09/2018 9:45 AM CDT Weight 118.5 kg (261 lb 4.8 oz) 04/09/2018 9:45 AM CDT Height 160 cm (5' 3") 04/09/2018 9:45 AM CDT Body Mass Index 46.29 in this encounter Functional Status Date of [...] cognitive impairment: Yes as of this encounter Patient Instructions * Patient Instructions* Randy Nunez MD - 04/09/2018 10:30 AM CDT Call my nurse at [phone] if you have any troubles or questions. Take 3 Viokase with each meal. Make sure you call your oncologist in [place] to let them know about the new liver lesion. Stop Zofran. Start Compazine 5mg every 8 hours as needed for nausea. in this encounter Progress Notes * Randy Nunez MD - 04/09/2018 10:30 AM CDT Date of Service: 04/09/2018 Subjective: Janeth Rajput [...] at [facility] in [place], [place]. She was recently diagnosed with Clostridium [...] to three times a day as needed. ifnvcx-penmyomy-apeeqxi (VIOKACE) 20,880-78,300- 78,300 unit tab Take 3 [...] answered. in this encounter Plan of Treatment Not on fileas of this encounter Visit Diagnoses Diagnosis Vomiting, intractability of vomiting not specified, presence of nausea not specified, unspecified vomiting type - Primary Chronic pancreatitis, unspecified pancreatitis type (HCC) in this encounter
--- OUTSIDE RECORDS SUMMARY | 2018-05-25 09:59 | XMS REPORT ---
Author Author AMY MARTINS Organization [facility] Address [address] [place] [address] Care Team Providers Care Waste Handling Technician Name Role Phone LAKSHMI AMY Unavailable PROBLEMS Type Condition ICD9-CM Code ADJ13-AS Code Onset Dates Condition Status SNOMED Code Problem Atelectasis J98.11 Active 22305102 Problem Restless leg syndrome G25.81 Active 55916471 Problem Trichotillomania F63.3 Active 21522832 Problem Primary osteoarthritis of right knee M17.11 Active 401727194838617 Problem Intestinal malabsorption, unspecified K90.9 Active 85828926 Problem Chronic post-traumatic stress disorder (PTSD) F43.12 Active 356501681 Problem Generalized social phobia F40.11 Active 45874004 Problem Chronic fatigue R53.82 Active 81817025 Problem Moderate episode of recurrent major depressive disorder F33.1 Active 718150238 Problem Chronic tension-type headache, intractable G44.221 Active 321428207 Problem Morbid (severe) obesity due to excess calories E66.01 Active 493063802 Problem Nodule of left lung R91.1 Active 224135343 Problem History of renal cell carcinoma Z85.528 Active 310786723 Problem FH: polycystic ovary Z84.2 Active 697323461 Problem Chronic pancreatitis K86.1 Active 532080592 Problem Hyperlipidemia, mixed E78.2 Active 837594221 Problem Asthma J45.909 Active 943020904 Problem Hirsuties L68.0 Active 898563676 Problem Polydipsia R63.1 Active 12972626 ALLERGIES Substance Reaction Event Type Date Status Vancomycin HCl itching Drug Allergy Apr, Active Penicillin V Potassium Unknown Drug Allergy Apr, Active Fentanyl Unknown Drug Allergy Apr, Active Demerol Unknown Drug Allergy Apr, Active ENCOUNTERS Encounter Location Date Diagnosis [facility] [address] [facility] [id number] [address] Jun, [place] [id number] [place] [address] 49948- 7193 Apr, Generalized social phobia F40.11 ; Trichotillomania F63.3 ; Chronic post-traumatic stress disorder (PTSD) F43.12 and BMI 45.0-49.9, adult Z68.42 [place] [address] [id number] [place] [address] 22520- 0867 Apr, [place] [address] 14335- 5156 Apr, Chronic tension-type headache, intractable G44.[address] 73984- 8014 Apr, [facility] [address] [place] [address] 23935 -5277 Mar, [facility] [address] [place] [address] 04412 -7218 Mar, BMI 45.0-49.9, adult Z68.42 and Pimples R23.[address] 85225- 7259 Mar, [place] [id number] [place] [address] 21898- 5917 Mar, [address] 23178- 4404 Mar, Decreased urination R34 ; Chronic fatigue R53.82 ; Peripheral edema R60.9 ; Diarrhea, unspecified type R19.7 ; Non-intractable vomiting with nausea, unspecified vomiting type R11.2 ; BMI 45.0-49.9, adult Z68.42 and Chronic post-traumatic stress disorder (PTSD) F43.12 [place] [id number] [place] [address] 79748- 8075 Mar, Intestinal malabsorption, unspecified K90.9 ; Diarrhea, unspecified R19.7 ; Urinary urgency R39.15 ; Rectal bleeding K62.5 and Decreased urine output R34 [facility] [id number] [place] [address] 06756- 8328 Mar, Decreased urine output R34 [facility] [id number] [place] [address] 44817- 2204 Mar, Rectal bleeding K62.5 [facility] [id number] [place] [address] 86280- 7407 Mar, Rectal bleeding K62.5 [facility] [id number] [place] [address] 86458- 5724 Mar, Urinary urgency R39.15 [facility] [address] 73852- 5048 Mar, Urinary urgency R39.15 [facility] [id number] [place] [address] 08348- 7777 Mar, Primary osteoarthritis of right knee M17.11 and BMI 45.0- 49.9, adult Z68.42 [facility] [id number] [place] [address] 54195- 2336 Mar, [facility] [id number] [place] [address] 33672- 3560 Feb, Left upper arm pain M79.622 [facility] [id number] [place] [address] 96147- 1996 Feb, [facility] [id number] [place] [address] 27917- 0361 Jan, Acute pain of right knee M25.561 ; Right upper quadrant abdominal pain R10.11 and BMI 45.0-49.9, adult Z68.42 [facility] [id number] [place] [address] 01755- 1731 Jan, [facility] [id number] [place] [address] 36240- 4494 Jan, [facility] [address], [place] [address] 7256 Dec, [facility] [id number] [place] [address] 99236- 2765 Dec, Intestinal malabsorption, unspecified K90.9 and Diarrhea, unspecified R19.7 [facility] [id number] [place] [address] 67075- 7887 Dec, [facility] [id number] [place] [address] 16213- 6810 Dec, Strep throat J02.0 ; Intestinal malabsorption, unspecified K90.9 ; Diarrhea, unspecified R19.7 ; Postoperative seroma involving digestive system after non-digestive system procedure K91.873 ; Hyperlipidemia, mixed E78.2 and BMI 45.0-49.9, adult Z68.42 [facility] [id number] [place] [address] 18264- 8739 Dec, [facility] [id number] [place] [address] 26667- 6530 Dec, Nausea R11.0 [facility] [id number] [place] [address] 12546- 9831 Dec, [facility] [address] [address] Dec, Sore throat J02.9 ; Strep throat J02.0 and BMI 45.0-49.9, adult Z68.42 [facility] [address] [address] 35[address] Dec, [facility] [id number] [place] [address] 62420- 4295 Dec, [facility] [address] [address] 5879 Dec, [facility] [id number] [place] [address] 18265- 7767 Dec, [facility] [id number] [place] [address] 41923- 7180 Dec, [facility] [id number] [place] [address] 63113- 1269 Dec, [facility] [id number] [place] [address] 28149- 2244 Dec, [facility] [id number] [place] [address] 87041- 3091 Dec, [facility] [id number] [place] [address] 03843- 0284 Dec, Clostridium difficile colitis A04.72 ; Intractable vomiting with nausea, unspecified vomiting type R11.2 and BMI 45.0-49.9, adult Z68.42 [facility] [id number] [place] [address] 15029- 0584 Dec, [facility] [id number] [place] [address] 62573- 7291 Nov, [facility] [id number] [place] [address] 89128- 9056 Nov, [facility] [id number] [place] [address] 90167- 2954 Nov, [facility] [id number] [place] [address] 54450- 9071 Nov, [facility] [id number] [place] [address] 88910 -3811 Nov, [facility] [id number] [place] [address] 46425- 5481 Nov, Hyperlipidemia, mixed E78.2 [facility] [id number] [place] [address] 64650 -1798 Nov, Acute suppurative otitis media of right ear without spontaneous rupture of tympanic membrane, recurrence not specified H66.001 and BMI 45.0-49.9, adult Z68.42 [place] [address] [address] 45[address] Nov, Hyperlipidemia, mixed E78.2 [place] [id number] [place] [address] 84014- 1138 Nov, [place] [id number] [place] [address] 94214- 5690 Nov, [place] [id number] [place] [address] 30386- 7429 Nov, Nodule of left lung R91.1 [place] [id number] [place] [address] 73218- 6051 Nov, Medicare annual wellness visit, initial Z00.00 [...] adult Z68.42 and Encounter for immunization Z23 [place] [address] [address] 0[address] October, [place] [id number] [place] [address] 05456- 5458 October, Nodule of left lung R91.1 [place] [address] [address]- 9694 October, Nodule of left lung R91.1 [place] [id number] [place] [address] 97342- 8190 October, Recurrent major depressive disorder, in partial remission F33.41 ; Restless leg syndrome G25.81 ; Generalized social phobia F40.11 ; Chronic post-traumatic stress disorder (PTSD) F43.12 ; BMI 45.0-49.9, adult Z68.42 and Trichotillomania F63.3 [facility] [id number] [place] [address] 83514- 2737 October, [facility] [id number] [place] [address] 82344- 3206 Sep, Chronic fatigue R53.82 and BMI 45.0-49.9, adult Z68.42 [facility] [id number] [place] [address] 51608- 2562 Aug, [facility] [address] [id number] [place] [address] 93523- 4995 Jul, Restless leg syndrome G25.81 and B12 deficiency E53.8 [place] [id number] [place] [address] 38031- 7781 Jul, [place] [address] 51528- 5638 Jul, [facility] [id number] [place] [address] 66324- 5151 Jun, [place] [id number] [place] [address] 60394- 7294 Jun, Fatigue, unspecified type R53.83 ; History of renal cell carcinoma Z85.528 ; Chronic pancreatitis K86.1 ; Restless leg syndrome G25.81 ; Dark urine R82.99 and BMI 45.0-49.9, adult Z68.42 [facility] [id number] [place] [address] 58860- 6719 Jun, [facility] [id number] [place] [address] 85798- 6201 Jun, [facility] [address] [id number] [place] [address] 47503- 8206 Jun, [facility] [id number] [place] [address] 98755- 6675 Jun, [place] [address] [address]- 7672 May, Chronic post-traumatic stress disorder (PTSD) F43.12 ; Moderate episode of recurrent major depressive disorder F33.1 ; Trichotillomania F63.3 and Generalized social phobia F40.11 [place] [id number] [place] [address] 07560- 2864 May, [place] [id number] [place] [address] 68731- 5875 May, Chronic post-traumatic stress disorder (PTSD) F43.12 ; Moderate episode of recurrent major depressive disorder F33.1 ; Trichotillomania F63.3 and Generalized social phobia F40.11 [place] [id number] [place] [address] 42283- 6605 May, Hyperlipidemia, mixed E78.2 ; Morbid (severe) obesity due to excess calories E66.01 ; Chronic post-traumatic stress disorder (PTSD) F43.12 ; Moderate episode of recurrent major depressive disorder F33.1 ; Trichotillomania F63.3 and Generalized social phobia F40.11 [place] [id number] [place] [address] 35278- 1953 Apr, [place] [id number] [place] [address] 82975- 3921 Apr, Hyperlipidemia, mixed E78.2 ; Morbid (severe) obesity due to excess calories E66.01 ; Chronic post-traumatic stress disorder (PTSD) F43.12 ; Moderate episode of recurrent major depressive disorder F33.1 ; Trichotillomania F63.3 and Generalized social phobia F40.11 [place] [id number] [place] [address] 40553- 4810 Apr, Trichotillomania F63.3 ; Generalized social phobia F40.11 ; Chronic post-traumatic stress disorder (PTSD) F43.12 and Moderate episode of recurrent major depressive disorder F33.1 [place] [address] [id number] [place] [address] 82697- 8355 Apr, [facility] [id number] [place] [address] 39135- 6700 Apr, [facility] [id number] [place] [address] 967964- 0955 Mar, Moderate episode of recurrent major depressive disorder F33.1 ; Trichotillomania F63.3 ; Chronic post-traumatic stress disorder (PTSD) F43.12 ; Generalized social phobia F40.11 and Restless leg syndrome G25.81 [facility] [id number] [place] [address] 29881- 8343 Mar, [facility] [address] [id number] [place] [address] 08878- 8456 Mar, [facility] [id number] [place] [address] 67987- 3525 Feb, Left kidney mass N28.89 [facility] [id number] [place] [address] 63650- 2069 Jan, [facility] [address] [place] [id number] [place] [address] 97655- 5347 Dec, Polydipsia R63.1 ; Chronic pancreatitis K86.1 and Fatigue, unspecified type R53.83 [facility] [address] [place] [id number] [place] [address] 75885- 6136 Nov, [facility] [id number] [place] [address] 86200- 7938 Nov, [facility] [id number] [place] [address] 40211- 4313 Nov, Headache around the eyes R51 [facility] [address] [id number] [place] [address] 45149- 9654 Nov, [facility] [id number] [place] [address] 20922- 3077 October, STD exposure Z20.2 [place] [id number] [place] [address] 13239- 3301 October, STD exposure Z20.2 [place] [address] 98886- 5661 October, Chronic post-traumatic stress disorder (PTSD) F43.12 ; Generalized social phobia F40.11 ; Trichotillomania F63.3 and Restless leg syndrome G25.81 [place] [address] 78583- 3511 October, [place] [address] 72932- 8715 Sep, [place] [address] 58728- 4023 Aug, [place] [address] 93447- 9650 Aug, [place] [address] 98539- 8080 Aug, Neck mass R22.1 [place] [address] 51551- 4050 Aug, Atelectasis J98.11 [place] [address] 80416- 3475 28 Jul, 2016 Hyperlipidemia, mixed E78.2 ; Atypical pneumonia J18.9 and Neck mass R22.1 [place] [id number] [place] [address] 50500- 6811 Jul, Hemoptysis R04.2 [place] [address] 99449- 1460 08 Jul, 2016 Acute non-recurrent pansinusitis J01.40 ; Hemoptysis R04.2 ; Polydipsia R63.1 and Malaise R53.81 [facility] [id number] [place] [address] 85907 -5947 May, Other viral agents as the cause of diseases classified elsewhere B97.89 and Acute upper respiratory infection, unspecified J06.9 [facility] [place] [id number] [place] [address] 53515 -5194 Mar, Nausea R11.0 [facility] [place] [id number] [place] [address] 71057 -8682 Dec, Hives L50.9 [place] [address] 18150- 2042 Dec, [facility] [place] [id number] [place] [address] 21818 -0212 Dec, Cutaneous abscess of limb, unspecified L02.419 ; Cellulitis of unspecified part of limb L03.119 ; Encounter for incision and drainage procedure Z01.89 and Encounter for recheck of abscess following incision and drainage Z09 [facility] [place] [id number] [place] [address] 73378 -7831 Dec, Abscess of leg, right L02.415 [place] [id number] [place] [address] 34317- 4382 Dec, Cellulitis of unspecified part of limb L03.119 and Cutaneous abscess of limb, unspecified L02.419 [place] [address] [id number] [place] [address] 13913- 1225 Dec, [place] [address] [id number] [place] [address] 55374- 2650 Dec, [facility] [place] [id number] [place] [address] 13023 -5749 Aug, [place] [id number] [place] [address] 00717- 0665 Aug, [facility] [place] [id number] [place] [address] 37719 -7841 Jul, Pain in unspecified wrist M25.539 and Back pain, thoracic M54.6 [facility] [id number] [place] [address] 32286 -4365 Jun, Strain of right wrist, initial encounter S66.911A [facility] [address] 16447- 9639 11 Jun, 2015 Chronic pancreatitis, unspecified pancreatitis type K86.1 ; Hirsuties L68.0 ; Morbid (severe) obesity due to excess calories E66.01 ; Chronic pancreatitis K86.1 and Asthma J45.909 [place] [address] 50626- 5360 14 May, 2015 [place] [address] 01831- 5902 May, Hyperlipidemia, mixed E78.2 and Muscle spasm of back M62.830 [place] [address] 20147- 3480 Apr, [place] [address] 93737- 3416 Apr, Torticollis M43.6 [facility] [address] 46994- 7446 Apr, Right-sided thoracic back pain M54.6 [facility] [address] 46425- 4924 Mar, Rash R21 [place] [id number] [place] [address] 22249- 6771 Mar, [facility] [address] [id number] [place] [address] 29532- 7251 Jan, [facility] [address] 69865- 9668 Dec, [facility] [address] [id number] [place] [address] 17745- 7076 Dec, Urinary frequency 788.41 and Nocturia more than twice per night 788.43 [facility] [address], [place] [address]- 7123 Nov, [facility] [id number] [place] [address] 83519- 1808 Nov, [facility] [address], [place] [address]- 0817 Nov, Abdominal pain 789.00 [facility] [id number] [place] [address] 18236- 2214 October, TDAP DX V06.1 [facility] [id number] [place] [address] 39078- 4607 October, [facility] [id number] [place] [address] 55314- 0719 October, Disturbance of skin sensation 782.0 ; Wrist pain, right 719.43 ; Hyperlipidemia 272.4 and Skin lesion of face 709.9 [facility] [id number] [address]- 1031 Sep, [facility] [id number] [place] [address] 11316- 9880 Sep, [facility] [id number] [place] [address] 71699- 6252 Aug, [facility] [id number] [place] [address] 72175- 1085 Aug, [facility] [address] [address]- 2862 Aug, [facility] [id number] [place] [address] 70436- 1556 Aug, [facility] [id number] [place] [address] 52885- 8701 Aug, [facility] [address] [address]- 1779 Aug, [facility] [place] [facility] [address] [id number] [place] [address]- 8633 14 Aug, 2014 [facility] [place] [facility] [address] [id number] [place] [address]- 0327 14 Aug, 2014 [facility] [place] [facility] [address] [id number] [place] [address]- 7465 11 Aug, 2014 [facility] [place] [facility] [address] [id number] [place] [address]- 4660 11 Aug, 2014 [facility] [place] [facility] [address] [id number] [place] [address]- 9289 04 Aug, 2014 [facility] [place] [facility] [address] [id number] [place] [address]- 7311 04 Aug, 2014 [facility] [place] [facility] [address] [facility] [id number] [place] [address]- 6463 Aug, [facility] [place] [facility] [address] [id number] [place] [address]- 7033 Aug, [facility] [place] [facility] [address] [id number] [place] [address]- 4422 Jul, [facility] [place] [facility] [address] [id number] [place] [address]- 6717 Jul, [facility] [place] [facility] [address] [facility] [id number] [place] [address] Jul, [facility] [place] [facility] [address] [id number] [place] [address] Jul, 2014 [facility] [place] [facility] [address] [id number] [place] [address] Jul, [facility] [place] [facility] [address] [id number] [place] [address] Jul, [facility] [place] [facility] [address] [id number] [place] [address] Jun, [facility] [place] [facility] [address] [id number] [place] [address] Jun, [facility] [place] [facility] [address] [id number] [place] [address] Jun, [facility] [place] [facility] [address] [id number] [place] [address] Jun, [facility] [place] [facility] [address] [id number] [place] [address] Jun, [facility] [place] [facility] [address] [id number] [place] [address] Jun, [facility] [place] [facility] [address] [id number] [place] [address] Jun, [facility] [place] [facility] [address] [id number] [place] [address] 15 Jun, 2014 [facility] [place] [facility] [address] [id number] [place] [address] May, [facility] [place] [facility] [address] [id number] [place] [address] May, [facility] [place] [facility] [address] [id number] [place] [address] 18 May, 2014 [facility] [place] [facility] [address] [id number] [place] [address] 18 May, 2014 [facility] [place] [facility] [address] [id number] [place] [address] 15 May, 2014 [facility] [place] [facility] [address] [id number] [place] [address] 15 May, 2014 [facility] [place] [facility] [address] [id number] [place] [address] May, [facility] [place] [facility] [address] [id number] [place] [address] May, [facility] [place] [facility] [address] [id number] [place] [address] 09 May, 2014 [facility] [place] [facility] [address] [id number] [place] [address] 69[address] May, [facility] [place] [facility] [address] [id number] [place] [address] 0563 May, [facility] [place] [facility] [address] [id number] [place] [address]- 5714 May, [facility] [place] [facility] [address] [id number] [place] [address]- 2235 Apr, [facility] [place] [facility] [address] [id number] [place] [address] 7103 Apr, [facility] [place] [facility] [address] [id number] [place] [address]- 6976 Apr, [facility] [place] [facility] [address] [id number] [place] [address]- 4774 Apr, [facility] [place] [facility] [address] [id number] [place] [address]- 4469 Apr, [facility] [place] [facility] [address] [id number] [place] [address]- 1173 Apr, [facility] [place] [facility] [address] [id number] [place] [address]- 7129 Apr, [facility] [place] [facility] [address] [id number] [place] [address]- 1750 14 Apr, 2014 [facility] [place] [facility] [address] [id number] [place] [address]- 1143 Apr, [facility] [place] [facility] [address] [id number] [place] [address]- 7219 Apr, [facility] [place] [facility] [address] [id number] [place] [address]- 1145 Apr, [facility] [place] [facility] [address] [id number] [place] [address]- 9740 Apr, [facility] [place] [facility] [address] [id number] [place] [address]- 2650 Mar, [facility] [place] [facility] [address] [id number] [place] [address]- 2619 Mar, [facility] [place] [facility] [address] [id number] [place] [address]- 5838 Mar, [facility] [place] [facility] [address] [id number] [place] [address]- 6376 Mar, [facility] [place] [facility] [address] [id number] [place] [address]- 8189 Feb, [facility] [place] [facility] [address] [id number] [place] [address]- 6259 Feb, [facility] [place] [facility] [address] [id number] [place] [address]- 0449 Feb, [facility] [place] [facility] [address] [id number] [place] [address]- 4938 Feb, [facility] [place] [facility] [address] [id number] [place] [address]- 7843 Feb, [facility] [place] [facility] [address] [id number] [place] [address]- 9762 Feb, [facility] [place] [facility] [address] [id number] [place] [address]- 8059 Jan, [facility] [place] [facility] [address] [id number] [place] [address]- 7182 Jan, [facility] [place] [facility] [address] [id number] [place] [address]- 0047 Jan, [facility] [place] [facility] [address] [id number] [place] [address]- 3945 Jan, [facility] [place] [facility] [address] [id number] [place] [address]- 2684 Jan, [facility] [place] [facility] [address] [id number] [place] [address]- 7422 Jan, [facility] [place] [facility] [address] [id number] [place] [address]- 9440 Jan, [facility] [place] [facility] [address] [id number] [place] [address]- 7351 Jan, [facility] [place] [facility] [address] [id number] [place] [address]- 6910 Jan, [facility] [place] [facility] [address] [id number] [place] [address]- 8591 Jan, [facility] [place] [facility] [address] [id number] [place] [address]- 3494 Jan, [facility] [place] [facility] [address] [id number] [place] [address]- 2456 Jan, [facility] [place] [facility] [address] [id number] [place] [address]- 2638 Jan, [facility] [place] [facility] [address] [id number] [place] [address]- 2018 Jan, [facility] [place] [facility] [address] [id number] [place] [address]- 1659 Dec, [facility] [place] [facility] [address] [id number] [place] [address]- 5198 Dec, [facility] [place] [facility] [address] [id number] [place] [address]- 1703 Dec, [facility] [place] [facility] [address] [id number] [place] [address]- 7968 Dec, [facility] [place] [facility] [address] [id number] [place] [address]- 6448 Nov, [facility] [place] [facility] [address] [id number] [place] [address]- 0851 Nov, [facility] [place] [facility] [address] [id number] [place] [address]- 5667 Nov, [facility] [place] [facility] [address] [id number] [place] [address]- 3647 Nov, [facility] [place] [facility] [address] [id number] [place] [address]- 6388 Nov, [facility] [place] [facility] [address] [id number] [place] [address]- 6231 October, [facility] [place] [facility] [address] [id number] [place] [address]- 0607 October, [facility] [place] [facility] [address] [id number] [place] [address]- 0345 October, [facility] [place] [facility] [address] [id number] [place] [address]- 2938 October, [facility] [place] [facility] [address] [id number] [place] [address]- 5920 October, [facility] [place] [facility] [address] [id number] [place] [address]- 9292 October, [facility] [place] [facility] [address] [id number] [place] [address]- 9821 October, [facility] [place] [facility] [address] [id number] [place] [address]- 2626 October, [facility] [place] [facility] [address] [id number] [place] [address]- 3910 October, [facility] [place] [facility] [address] [id number] [place] [address]- 7354 October, [facility] [place] [facility] [address] [id number] [place] [address]- 4342 October, [facility] [place] [facility] [address] [id number] [place] [address]- 3344 October, [facility] [place] [facility] [address] [id number] [place] [address]783 October, [facility] [place] [facility] [address] [id number] [place] [address]- 5708 October, [facility] [place] [facility] [address] [id number] [place] [address]- 5923 Sep, [facility] [place] [facility] [address] [id number] [place] [address]- 5373 17 Sep, 2013 [facility] [place] [facility] [address] [id number] [place] [address]- 8852 Sep, [facility] [place] [facility] [address] [id number] [place] [address]- 5936 Sep, [facility] [place] [facility] [address] [id number] [place] [address]- 4207 Sep, [facility] [place] [facility] [address] [id number] [place] [address]- 6963 Sep, [facility] [place] [facility] [address] [id number] [place] [address]- 1241 Sep, [facility] [place] [facility] [address] [id number] [place] [address]- 5199 Sep, [facility] [place] [facility] [address] [id number] [place] [address]- 9362 Sep, [facility] [place] [facility] [address] [id number] [place] [address]- 0199 Sep, [facility] [place] [facility] [address] [id number] [place] [address]- 7207 Sep, [facility] [place] [facility] [address] [id number] [place] [address]- 1549 Sep, [facility] [place] [facility] [address] [id number] [address]- 7494 Sep, [facility] [place] [facility] [address] [id number] [place] [address]- 0052 Sep, [facility] [place] [facility] [address] [id number] [place] [address]- 9411 Sep, [facility] [place] [facility] [address] [id number] [place] [address]- 2608 Aug, [facility] [place] [facility] [address] [id number] [place] [address]- 4095 Aug, [facility] [place] [facility] [address] [id number] [place] [address]- 6526 Aug, [facility] [place] [facility] [address] [id number] [place] [address]- 2326 Aug, [facility] [place] [facility] [address] [id number] [place] [address]- 7088 Jul, [facility] [place] [facility] [address] [id number] [place] [address]- 2106 Jul, [facility] [place] [facility] [address] [id number] [place] [address]- 4510 Jul, [facility] [place] [facility] [address] [id number] [place] [address]- 7496 Jul, [facility] [place] [facility] [address] [id number] [place] [address]- 6298 Jun, [facility] [place] [facility] [address] [id number] [place] [address]- 1731 Jun, [facility] [place] [facility] [address] [id number] [place] [address]- 4767 Jun, [facility] [place] [facility] [address] [id number] [place] [address]- 2849 Jun, [facility] [place] [facility] [address] [id number] [place] [address]- 3107 Jun, [facility] [place] [facility] [address] [id number] [place] [address]- 2973 Jun, [facility] [place] [facility] [address] [id number] [place] [address]- 7697 Jun, [facility] [place] [facility] [address] [id number] [place] [address]- 5566 Jun, [facility] [place] [facility] [address] [id number] [place] [address]- 9371 May, [facility] [address] [id number] [place] [address] 20 May, 2013 [facility] [place] [facility] [address] [id number] [place] [address]- 2597 18 May, 2013 [facility] [address] [id number] [place] [address] 18 May, 2013 [facility] [address] [id number] [place] [address]- 0484 17 May, 2013 [facility] [place] [facility] [address] [id number] [place] [id number] 17 May, 2013 [facility] [place] [facility] [address] [id number] [place] [address]- 8715 17 May, 2013 [facility] [address] [id number] [place] [address]- 3802 17 May, 2013 [facility] [address] [id number] [place] [address]- 0983 16 May, 2013 [facility] [place] [facility] [address] [id number] [place] [address]- 3677 16 May, 2013 [facility] [address] [id number] [place] [address]- 1398 14 May, 2013 [facility] [address] [id number] [place] [address]- 9741 14 May, 2013 [facility] [place] [facility] [address] [id number], [place] [address]- 5188 13 May, 2013 [facility] [place] [facility] [address] [id number] [place] [address]- 5022 13 May, 2013 [facility] [place] [facility] [address] [id number] [place] [address]- 7159 12 May, 2013 [facility] [place] [facility] [address] [id number] [place] [address]762 12 May, 2013 [facility] [place] [facility] [address] [id number], [place] [address]- 4909 May, [facility] [address] [id number] [place] [address]- 0854 May, [facility] [address] [id number] [place] [address]- 2103 Apr, [facility] [address] [id number] [place] [address]- 4282 Apr, [facility] [address] [id number] [place] [address]- 8057 Apr, [facility] [address] [id number] [place]168 Apr, [facility] [address] [id number] [place] [address]- 8490 Aug, [facility] [address] [facility] [id number] [place] [address]- 7199 Aug, [facility] [address] [id number] [place] [address]- 4351 Aug, [facility] [address] [facility] [id number] [place] [address]- 9432 05 Aug, 2012 [facility] [address] [facility] [id number] [place] [address]- 2438 Jul, [facility] [address] [id number] [place] [address]- 4440 Jun, [facility] [place] [facility] [address] [id number] [place] [address]- 6820 Jun, [facility] [place] [facility] [address] [id number] [place] [address]- 6171 16 Jun, 2012 [facility] [place] [facility] [address] [id number] [place] [address]- 1481 Jun, [facility] [place] [facility] [address] [facility] [id number] [place] [address]- 1102 17 May, 2012 [facility] [place] [facility] [address] [id number] [place] [address]- 5890 05 May, 2012 [facility] [place] [facility] [address] [id number] [place] [address]- 4762 May, [facility] [place] [facility] [address] [id number] [place] [address]- 1896 May, [facility] [place] [facility] [address] [id number] [place] [address]- 5879 May, [facility] [place] [facility] [address] [id number] [place] [address]- 9382 May, [facility] [place] [facility] [address] [id number] [place] [address]- 5326 May, [facility] [place] [facility] [address] [id number] [place] [address]- 3743 Apr, [facility] [place] [facility] [address] [id number] [place] [address]- 3559 Apr, [facility] [place] [facility] [address] [id number] [place] [address]- 0562 Apr, [facility] [place] [facility] [address] [id number] [place] [address]- 6979 Apr, [facility] [place] [facility] [address] [facility] [id number] [place] [address]- 3693 Apr, [facility] [place] [facility] [address] [id number] [place] [address]- 6012 Apr, [facility] [place] [facility] [address] [id number] [place] [address]- 8584 Apr, [facility] [place] [facility] [address] [id number] [place] [address]25 Mar, [facility] [place] [facility] [address] [id number] [place] Mar, [facility] [place] [facility] [address] [id number] [place] [address]- 0281 Mar, [facility] [place] [facility] [address] [id number] [place] [address]- 8468 Mar, [facility] [place] [facility] [address] [id number] [place] [address]- 2600 Mar, [facility] [place] [facility] [address] [id number] [place] [address]- 7646 Mar, [facility] [place] [facility] [address] [id number] [place] [address]- 9656 Mar, [facility] [place] [facility] [address] [id number] [place] [address]- 7122 Mar, [facility] [place] [facility] [address] [id number] [place] [address]- 9618 Mar, [facility] [place] [facility] [address] [id number] [place] [address]- 2248 Mar, [facility] [place] [facility] [address] [id number], [place] [address]- 3557 Mar, [facility] [place] [facility] [address] [id number] [place] [address]- 3222 Mar, [facility] [place] [facility] [address] [id number], [place] [address]- 4759 Feb, [facility] [place] [facility] [address] [id number], [place] [address]- 6208 Jan, [facility] [place] [facility] [address] [id number], [place] [address]- 0567 Jan, [facility] [place] [facility] [address] [id number], [place] [address]- 7323 Jan, [facility] [place] [facility] [address] [id number], [place] [address]- 7461 Jan, [facility] [place] [facility] [address] [id number], [place] [address]- 5804 Jan, [facility] [place] [facility] [address] [id number] [place] [address]- 9484 Dec, [facility] [address] [id number] [place] [address]- 4737 Dec, [facility] [place] [facility] [address] [id number] [place] [address]- 5549 Nov, [facility] [address] [id number] [place] [address]- 7203 Nov, [facility] [place] [facility] [address] [id number] [place] [address]- 9320 Nov, [facility] [address] [id number] [place] [address]- 8208 October, [facility] [place] [facility] [address] [id number] [place] [address]- 4978 October, [facility] [address] [id number] [place] [address]- 9840 October, [facility] [address] [id number] [place] [address]- 0723 October, [facility] [place] [facility] [address] [id number] [place] [address]- 6774 October, [facility] [address] [id number] [place] [address]- 9189 October, [facility] [place] [facility] [address] [id number] [place] [address]- 8657 October, [facility] [place] [facility] [address] [id number] [place] [address]- 7100 Sep, [facility] [place] [facility] [address] [id number] [place] [address]- 9038 Sep, [facility] [place] [facility] [address] [id number] [place] [address]- 3223 Sep, [facility] [place] [facility] [address] [id number] [place] [address]- 6132 Sep, [facility] [place] [facility] [address] [id number] [place] [address]- 3307 24 Sep, 2011 [facility] [place] [facility] [address] [id number] [place] [address]- 6155 19 Sep, 2011 [facility] [place] [facility] [address] [id number] [place] [address]- 3177 17 Sep, 2011 [facility] [place] [facility] [address] [id number] [place] [address]- 1755 16 Sep, 2011 [facility] [address] [id number] [place] [address]- 0391 16 Sep, 2011 [facility] [place] [facility] [address] [id number] [place] [address]- 8915 14 Sep, 2011 [facility] [address] [id number] [place] [address]- 8239 13 Sep, 2011 [facility] [address] [id number] [place] [address]- 4637 10 Sep, 2011 [facility] [place] [facility] [address] [id number] [place] [address]- 9597 09 Sep, 2011 [facility] [place] [facility] [address] [id number] [place] [address]- 6164 27 Aug, 2011 [facility] [place] [facility] [address] [id number] [place] [address]- 7529 Aug, [facility] [place] [facility] [address] [id number] [place] [address]- 1849 08 Aug, 2011 [facility] [place] [facility] [address] [id number] [place] [address]- 8867 06 Aug, 2011 [facility] [place] [facility] [address] [id number] [place] [address]- 0217 28 Jul, 2011 [facility] [place] [facility] [address] [id number] [place] 288[address] Jul, [facility] [place] [facility] [address] [id number] [place] [address]- 6758 16 Jul, 2011 [facility] [address] [id number] [place] [address]- 4426 15 Jul, 2011 [facility] [place] [facility] [address] [id number] [place] [address]- 4986 14 Jul, 2011 [facility] [address] [id number] [place] [address]- 4656 10 Jul, 2011 [facility] [place] [facility] [address] [id number] [place] [address]- 3809 30 Jun, 2011 [facility] [address] [id number] [place] [address]- 6181 Jun, [facility] [address] [id number] [place] [address]- 0014 Jun, [facility] [address] [id number] [place] [address]- 9638 Jun, [facility] [address] [id number] [place] [address] Jun, [facility] [address] [id number] [place] [address] May, [facility] [address] [facility] [id number] [place] [address] May, [facility] [address] [id number] [place] [address]28 14 May, 2011 [facility] [place] [facility] [address] [id number] [place] [address] 14 May, 2011 [facility] [place] [facility] [address] [id number] [place] [address] 12 May, 2011 [facility] [place] [facility] [address] [id number] [place] [address] 1566 07 May, 2011 [facility] [place] [facility] [address] [facility] [id number] [place] [address] 05 May, 2011 [facility] [place] [facility] [address] [id number] [place] [address] 15 Apr, 2011 [facility] [place] [facility] [address] [id number] [place] [address] Apr, [facility] [place] [facility] [address] [id number] [place] [address] Apr, [facility] [place] [facility] [address] [id number] [place] [address] Apr, [facility] [place] [facility] [address] [id number] [place] [address] Apr, [facility] [place] [facility] [address] [id number] [place] [address] Apr, [facility] [place] [facility] [address] [id number] [place] [address] Mar, [facility] [place] [facility] [address] [id number] [place] [address] Mar, [facility] [place] [facility] [address] [id number] [place] [address] Mar, [facility] [place] [facility] [address] [id number] [place] [address] Mar, [facility] [place] [facility] [address] [id number] [place] [address] Jan, [facility] [place] [facility] [address] [id number] [place] [address] Dec, [facility] [place] [facility] [address] [id number] [place] [address] Dec, [facility] [place] [facility] [address] [id number] [place] [address] October, [facility] [place] [facility] [address] [id number] [place] [address] Sep, [facility] [place] [facility] [address] [id number] [place] [address] 14 Sep, 2010 [facility] [place] [facility] [address] [id number] [place] [address] 17 Jul, 2010 [facility] [place] [facility] [address] [id number] [place] [address] 16 Jul, 2010 [facility] [place] [facility] [address] [id number] [place] [address] 2946 31 May, 2010 [facility] [place] [facility] [address] [id number] [place] [address] May, [facility] [place] [facility] [address] [id number] [place] [address] May, [facility] [place] [facility] [address] [id number] [place] [address] May, [facility] [place] [facility] [address] [id number] [place] [address] Apr, [facility] [place] [facility] [address] [id number] [place] [address] Apr, [facility] [place] [facility] [address] [id number] [place] [address] 1139 Apr, [facility] [place] [facility] [address] [id number] [place] [address] Apr, [facility] [place] [facility] [address] [id number] [address] Apr, [facility] [place] [facility] [address] [id number], [place] [address] 21 Mar, 2010 [facility] [place] [facility] [address] [id number] [place] [address] 6673 14 Mar, 2010 [facility] [place] [facility] [address] [id number] [place] [address] 13 Mar, 2010 [facility] [place] [facility] [address] [id number] [place] [address] 12 Mar, 2010 [facility] [place] [facility] [id number], [place] [address] Jan, [facility] [id number], [place] [address] Dec, [facility] [id number] [address] Sep, [facility] [id number] [place] [address] May, [facility] [id number], [place] [address] May, [facility] [id number] [place] [address]- [address] May, [facility] [id number], [place] [address] Apr, [facility] [id number] [place] [address] Apr, [facility] [id number], [place] [address] Apr, [facility] [id number] [place] [address] Apr, [facility] [id number], [place] [address] Apr, [facility] [id number] [place] [address] Mar, [facility] [id number], [place] [address] Mar, [facility] [id number] [address] Jul, IMMUNIZATIONS No Known Immunizations SOCIAL HISTORY Never Assessed REASON FOR VISIT EHNRY yañez/jordon dubois ma, depression / anxiety PLAN OF CARE Activity Details Follow Up 6-8w Reason: VITAL SIGNS Height 62 in 2018-05-13 Weight 264.9 lbs 2018-05-13 Heart Rate 81 bpm 2018-05-13 Respiratory Rate 20 2018-05-13 BMI 48.45 kg/m2 2018-05-13 Blood pressure systolic 124 mmHg 2018-05-13 Blood pressure diastolic 74 mmHg 2018-05-13 MEDICATIONS Medication Instructions Dosage Frequency Start Date End Date Duration Status Estradiol 0.5 MG Orally Once a day 2 tablet by Oral route 1 time per day 24h Apr, Active Vitamin B 12 Active Sertraline HCl 50 mg Orally Once a day 1 tablet 24h Apr, 30 day (s) Active Ropinirole HCl 4 MG Orally Once a day 1 tablet before bedtime 24h 30 days Active Viokace 35843 UNIT Not-Taking Ondansetron HCl 8 mg 1 tablet by Oral route every 8 hours PRN Jul, Active RESULTS No Results PROCEDURES Procedure Date Ordered Result Body Site [facility] VISIT ESTABLISHED PATIENT May 13, 2018 INSTRUCTIONS MEDICATIONS ADMINISTERED No Known Medications [...] cell carcinoma Medical History DVT left arm Medical History Obesity Surgical History arthroscopic knee surgery- Dr Figueroa [...] Name Medical Center 12/20/15 Hospitalization History [facility]- Abd pain 03/07/2017 Hospitalization History [facility] [place]- Abd pain 03/14/2017 Hospitalization History [facility] [place]- No bowel movement, rash 04/13/2017 Hospitalization History [facility] [place]- Abd pain r/t kidney surgery on 04/17/2017 Hospitalization History [facility]- Abd pain r/t kidney surgery on 04/18/2017 Hospitalization History [facility] [place]- Lower abd pain 04/30/2017 Hospitalization History [facility]- Cannot urinate 05/30/2017 Hospitalization History [facility]- Pancreatitis Sx 06/29/2017 Hospitalization History [facility] [place]- Stomach pain 07/22/2017 Hospitalization History [facility] [place]- Left side pain 08/12/2017 Hospitalization History [facility]- Incision site infection 08/30/2017 Hospitalization History [facility]- Post Op Seroma/Hematoma Left Abdomen. Discharged 09/04/17- Dr Daniel 09/02/2017 Hospitalization History [facility]- Right shoulder and back pain 2017 Hospitalization History [facility]- Shoulder/Back pain 11/11/2017 Hospitalization History [facility]- Right shoulder blade pain 12/04/2017 Hospitalization History [facility]- C-Diff 12/13/2017 Hospitalization History C diff et MRSA 12/27/2017
--- OUTSIDE RECORDS SUMMARY | 2018-05-25 10:00 | XMS REPORT ---
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 Chief Name Role Phone SAICORTNEY KOENIGHANY Unavailable PROBLEMS Type Condition ICD9-CM Code AMH81-ET Code Onset Dates Condition Status SNOMED Code Problem Atelectasis J98.11 Active 71296866 Problem Restless leg syndrome G25.81 Active 89896866 Problem Trichotillomania F63.3 Active 08828200 Problem Primary osteoarthritis of right knee M17.11 Active 698583223036175 Problem Intestinal malabsorption, unspecified K90.9 Active 81427733 Problem Chronic post-traumatic stress disorder (PTSD) F43.12 Active 926810938 Problem Generalized social phobia F40.11 Active 41904341 Problem Chronic fatigue R53.82 Active 76794658 Problem Moderate episode of recurrent major depressive disorder F33.1 Active 331171860 Problem Chronic tension-type headache, intractable G44.221 Active 191544866 Problem Morbid (severe) obesity due to excess calories E66.01 Active 717656564 Problem Nodule of left lung R91.1 Active 814879899 Problem History of renal cell carcinoma Z85.528 Active 806713202 Problem FH: polycystic ovary Z84.2 Active 753597193 Problem Chronic pancreatitis K86.1 Active 885244412 Problem Hyperlipidemia, mixed E78.2 Active 611820862 Problem Asthma J45.909 Active 572437708 Problem Hirsuties L68.0 Active 046509469 Problem Polydipsia R63.1 Active 59243068 ALLERGIES No Information ENCOUNTERS Encounter Location Date Diagnosis [facility] [place] [id number] [address] Apr, [facility] [place] [id number] [address] Apr, [facility] [place] [address] [address] 15 Apr, 2018 Chronic tension-type headache, intractable G44.221 [facility] [place] [id number] [place] [address] 78185- 7626 13 Apr, 2018 [facility] [id number] [place] [address] 14474 -6702 Mar, [facility] [id number] [place] [address] 27312 -9061 Mar, BMI 45.0-49.9, adult Z68.42 and Pimples R23.8 [place] [id number] [place] [address] 25778- 0644 Mar, [facility] [id number] [place] [address] 56231- 5326 Mar, [facility] [id number] [place] [address] 80127- 1798 Mar, Decreased urination R34 ; Chronic fatigue R53.82 ; Peripheral edema R60.9 ; Diarrhea, unspecified type R19.7 ; Non-intractable vomiting with nausea, unspecified vomiting type R11.2 ; BMI 45.0-49.9, adult Z68.42 and Chronic post-traumatic stress disorder (PTSD) F43.12 [facility] [id number] [place] [address] 47308- 9516 Mar, Intestinal malabsorption, unspecified K90.9 ; Diarrhea, unspecified R19.7 ; Urinary urgency R39.15 ; Rectal bleeding K62.5 and Decreased urine output R34 [place] [address] [address] 5[address] Mar, Decreased urine output R34 [facility] [id number] [place] [address] 73940- 1494 Mar, Rectal bleeding K62.5 [facility] [id number] [place] [address] 41648- 2968 Mar, Rectal bleeding K62.5 [facility] [place] [id number] [place] [address] 87470- 3959 Mar, Urinary urgency R39.15 [facility] [place] [id number] [place] [address] 43926- 5815 Mar, Urinary urgency R39.15 [facility] [place] [id number] [place] [address] 89238- 0490 Mar, Primary osteoarthritis of right knee M17.11 and BMI 45.0- 49.9, adult Z68.42 [facility] [place] [id number] [place] [address] 07233- 9388 Mar, [facility] [place] [id number] [place] [address] 87287- 6170 Feb, Left upper arm pain M79.622 [facility] [place] [id number] [place] [address] 22468- 4592 Feb, [facility] [place] [id number] [place] [address] 93649- 6608 Jan, Acute pain of right knee M25.561 ; Right upper quadrant abdominal pain R10.11 and BMI 45.0-49.9, adult Z68.42 [facility] [place] [id number] [place] [address] 95899- 6577 Jan, [facility] [place] [id number] [place] [address] 73933- 7886 Jan, [facility] [place] [id number] [place] [address] 55308- 9926 Dec, [facility] [id number] [place] [address] 39953- 0132 Dec, Intestinal malabsorption, unspecified K90.9 and Diarrhea, unspecified R19.7 [facility] [id number] [place] [address] 99064- 1156 Dec, [facility] [place] [address] [place] [address] Dec, Strep throat J02.0 ; Intestinal malabsorption, unspecified K90.9 ; Diarrhea, unspecified R19.7 ; Postoperative seroma involving digestive system after non-digestive system procedure K91.873 ; Hyperlipidemia, mixed E78.2 and BMI 45.0-49.9, adult Z68.42 [facility] [place] [id number] [place] [address] 22047- 3087 Dec, [facility] [place] [id number] [place] [address] 21988- 5726 Dec, Nausea R11.0 [facility] [place] [id number] [place] [address] 69653- 5356 Dec, [facility] [id number] [place] [address] 81599 -3052 Dec, Sore throat J02.9 ; Strep throat J02.0 and BMI 45.0-49.9, adult Z68.42 [facility] [place] [id number] [place] [address] 90646- 2489 Dec, [facility] [place] [id number] [place] [address] 48716- 1036 Dec, [facility] [place] [id number] [address] 7622 Dec, [facility] [place] [address] [address] 0772 Dec, [facility] [place] [id number] [place] [address] 12496- 1982 Dec, [facility] [place] [id number] [place] [address] 76603- 5294 Dec, [facility] [place] [id number] [address]- 5141 Dec, [facility] [place] [id number] [place] [address] 93538- 1771 Dec, [facility] [place] [address] [address] 9279 Dec, Clostridium difficile colitis A04.72 ; Intractable vomiting with nausea, unspecified vomiting type R11.2 and BMI 45.0-49.9, adult Z68.42 [facility] [place] [id number] [place] [address] 40566- 0006 Dec, [facility] [place] [id number] [place] [address] 32662- 1290 Nov, [facility] [place] [id number] [place] [address] 72485- 4445 Nov, [facility] [place] [id number] [place] [address] 17192- 8295 Nov, [facility] [place] [id number] [place] [address] 32661- 3127 Nov, [facility] [id number] [place] [address] 83739 -4901 Nov, [facility] [place] [id number] [place] [address] 27428- 2889 Nov, Hyperlipidemia, mixed E78.2 [facility] [id number] [place] [address] 97756 -7164 Nov, Acute suppurative otitis media of right ear without spontaneous rupture of tympanic membrane, recurrence not specified H66.001 and BMI 45.0-49.9, adult Z68.42 [facility] [place] [id number] [place] [address] 90448- 5995 Nov, Hyperlipidemia, mixed E78.2 [facility] [place] [id number] [place] [address] 59184- 0493 Nov, [facility] [place] [id number] [place] [address] 34858- 8016 Nov, [facility] [id number] [place] [address] 37949- 4677 Nov, Nodule of left lung R91.1 [place] [id number] [place] [address] 59324- 3829 Nov, Medicare annual wellness visit, initial Z00.00 [...] adult Z68.42 and Encounter for immunization Z23 [place] [id number] [place] [address] 98624- 7865 October, [place] [id number] [place] [address] 94928- 3459 October, Nodule of left lung R91.1 [place] [id number] [place] [address] 77740- 9992 October, Nodule of left lung R91.1 [place] [id number] [place] [address] 22432- 4827 October, Recurrent major depressive disorder, in partial remission F33.41 ; Restless leg syndrome G25.81 ; Generalized social phobia F40.11 ; Chronic post-traumatic stress disorder (PTSD) F43.12 ; BMI 45.0-49.9, adult Z68.42 and Trichotillomania F63.3 [place] [id number] [place] [address] 22005- 9838 October, [id number] [place] [address] 52531- 6486 Sep, Chronic fatigue R53.82 and BMI 45.0-49.9, adult Z68.42 [place] [id number] [place] [address] 77183- 7630 Aug, [place] [id number] [place] [address] 30679- 9996 Jul, Restless leg syndrome G25.81 and B12 deficiency E53.8 [place] [id number] [place] [address] 65886- 4758 Jul, [place] [id number] [place] [address] 70253- 7137 Jul, [facility] [id number] [place] [address] 36071- 0582 Jun, [place] [address] 50688- 8921 Jun, Fatigue, unspecified type R53.83 ; History of renal cell carcinoma Z85.528 ; Chronic pancreatitis K86.1 ; Restless leg syndrome G25.81 ; Dark urine R82.99 and BMI 45.0-49.9, adult Z68.42 [place] [id number] [place] [address] 91270- 7592 Jun, [place] [id number] [place] [address] 89451- 5031 Jun, [place] [id number] [place] [address] 92392- 4637 Jun, [place] [id number] [place] [address] 55275- 0242 Jun, [place] [id number] [place] [address] 59077- 3654 May, Chronic post-traumatic stress disorder (PTSD) F43.12 ; Moderate episode of recurrent major depressive disorder F33.1 ; Trichotillomania F63.3 and Generalized social phobia F40.11 [place] [id number] [place] [address] 28100- 2496 May, [place] [id number] [place] [address] 14526- 1364 14 May, 2017 Chronic post-traumatic stress disorder (PTSD) F43.12 ; Moderate episode of recurrent major depressive disorder F33.1 ; Trichotillomania F63.3 and Generalized social phobia F40.11 [facility] [place] [address] [place] [address] 63868- 6978 07 May, 2017 Hyperlipidemia, mixed E78.2 ; Morbid (severe) obesity due to excess calories E66.01 ; Chronic post-traumatic stress disorder (PTSD) F43.12 ; Moderate episode of recurrent major depressive disorder F33.1 ; Trichotillomania F63.3 and Generalized social phobia F40.11 [place] [id number] [place] [address] 79830- 0197 30 Apr, 2017 [place] [id number] [place] [address] 48045- 9460 29 Apr, 2017 Hyperlipidemia, mixed E78.2 ; Morbid (severe) obesity due to excess calories E66.01 ; Chronic post-traumatic stress disorder (PTSD) F43.12 ; Moderate episode of recurrent major depressive disorder F33.1 ; Trichotillomania F63.3 and Generalized social phobia F40.11 [place] [address] [place] [address] 22983- 0814 Apr, Trichotillomania F63.3 ; Generalized social phobia F40.11 ; Chronic post-traumatic stress disorder (PTSD) F43.12 and Moderate episode of recurrent major depressive disorder F33.1 [place] [id number] [place] [address] 44496- 4358 Apr, [place] [id number] [place] [address] 96269- 0460 Apr, [place] [id number] [place] [address] 87885- 9960 Mar, Moderate episode of recurrent major depressive disorder F33.1 ; Trichotillomania F63.3 ; Chronic post-traumatic stress disorder (PTSD) F43.12 ; Generalized social phobia F40.11 and Restless leg syndrome G25.81 [facility] [id number] [place] [address] 32960- 9361 Mar, [facility] [place] [address] 64715- 9138 Mar, [facility] [place] [id number] [place] [address] 21684- 7265 Feb, Left kidney mass N28.89 [facility] [place] [address] 39576- 8523 Jan, [facility] [place] [address] 52259- 2042 Dec, Polydipsia R63.1 ; Chronic pancreatitis K86.1 and Fatigue, unspecified type R53.83 [place] [id number] [place] [address] 24001- 7212 Nov, [facility] [place] [id number] [place] [address] 49831- 1547 Nov, [facility] [place] [id number] [place] [address] 25359- 4823 Nov, Headache around the eyes R51 [facility] [id number] [place] [address] 33779- 5810 Nov, [place] [id number] [place] [address] 02812- 5436 October, STD exposure Z20.2 [facility] [place] [id number] [place] [address] 53459- 7188 October, STD exposure Z20.2 [place] [id number] [place] [address] 72049- 1604 October, Chronic post-traumatic stress disorder (PTSD) F43.12 ; Generalized social phobia F40.11 ; Trichotillomania F63.3 and Restless leg syndrome G25.81 [place] [id number] [place] [address] 67432- 6629 October, [place] [address] [place] [address] 08426- 4505 Sep, [place] [id number] [place] [address] 23739- 0393 Aug, [place] [id number] [place] [address] 09598- 7670 Aug, [place] [address] 55126- 6765 Aug, Neck mass R22.1 [place] [address] 47939- 0465 Aug, Atelectasis J98.11 [place] [address] 24850- 2699 28 Jul, 2016 Hyperlipidemia, mixed E78.2 ; Atypical pneumonia J18.9 and Neck mass R22.1 [place] [id number] [place] [address] 25948- 6860 15 Jul, 2016 Hemoptysis R04.2 [place] [id number] [place] [address] 75421- 7051 08 Jul, 2016 Acute non-recurrent pansinusitis J01.40 ; Hemoptysis R04.2 ; Polydipsia R63.1 and Malaise R53.81 [facility] [id number] [place] [address] 30343 -2411 May, Other viral agents as the cause of diseases classified elsewhere B97.89 and Acute upper respiratory infection, unspecified J06.9 [facility] [id number] [place] [address] 13253 -8118 Mar, Nausea R11.0 [facility] [place] [id number] [place] [address] 83143 -7210 Dec, Hives L50.9 [place] [address] [place] [address]- 5016 14 Dec, 2015 [facility] [place] [id number] [place] [address] 44377 -4469 10 Dec, 2015 Cutaneous abscess of limb, unspecified L02.419 ; Cellulitis of unspecified part of limb L03.119 ; Encounter for incision and drainage procedure Z01.89 and Encounter for recheck of abscess following incision and drainage Z09 [facility] [place] [id number] [place] [address] 55137 -7560 09 Dec, 2015 Abscess of leg, right L02.415 [place] [id number] [place] [address] 94002- 0033 08 Dec, 2015 Cellulitis of unspecified part of limb L03.119 and Cutaneous abscess of limb, unspecified L02.419 [place] [id number] [place] [address] 60272- 6713 Dec, [place] [id number] [place] [address] 18619- 7591 Dec, [facility] [place] [place] [id number] [place] [address] 51997 -5646 Aug, [place] [id number] [place] [address] 33419- 3183 Aug, [facility] [place] [id number] [place] [address] 05963 -8839 Jul, Pain in unspecified wrist M25.539 and Back pain, thoracic M54.6 [facility] [place] [address] [place] [address] 77563 -6294 Jun, Strain of right wrist, initial encounter S66.911A [place] [id number] [place] [address] 20789- 5741 Jun, Chronic pancreatitis, unspecified pancreatitis type K86.1 ; Hirsuties L68.0 ; Morbid (severe) obesity due to excess calories E66.01 ; Chronic pancreatitis K86.1 and Asthma J45.909 [facility] [id number] [place] [address] 62663- 2546 May, [facility] [id number] [place] [address] 93365- 4380 May, Hyperlipidemia, mixed E78.2 and Muscle spasm of back M62.830 [facility] [id number] [place] [address] 70464- 1924 Apr, [facility] [id number] [place] [address] 91187- 9056 Apr, Torticollis M43.6 [facility] [address] 84931- 1452 Apr, Right-sided thoracic back pain M54.6 [facility] [id number] [place] [address] 50637- 6902 Mar, Rash R21 [facility] [id number] [place] [address] 98334- 1841 Mar, [facility] [id number] [place] [address] 29289- 3633 Jan, [facility] [id number] [place] [address] 69436- 1599 Dec, [facility] [id number] [place] [address] 75044- 1417 Dec, Urinary frequency 788.41 and Nocturia more than twice per night 788.43 [facility] [place] [id number] [place] [address]6937- 6092 Nov, [facility] [place] [id number] [place] [address] [phone]- 1584 Nov, [facility] [place] [id number] [place] [address] [id number]- 5507 Nov, Abdominal pain 789.00 [facility] [place] [id number] [place] [address] [id number]- [phone] October, TDAP DX V06.1 [facility] [place] [id number] [address] October, [facility] [place] [id number] [address] October, Disturbance of skin sensation 782.0 ; Wrist pain, right 719.43 ; Hyperlipidemia 272.4 and Skin lesion of face 709.9 [facility] [place] [address] [facility] [id number] [address] Sep, [facility] [place] [id number] [address] Sep, [facility] [place] [id number] [address] Aug, [facility] [place] [id number] [address] Aug, [facility] [place] [id number] [address] Aug, [facility] [place] [id number] [address] Aug, [facility] [place] [id number] [address] Aug, [facility] [place] [id number] [address] 16 Aug, 2014 [facility] [place] [id number] [address] Aug, [facility] [place] [id number] [address] Aug, [facility] [place] [id number] [address] Aug, [facility] [place] [id number] [address] Aug, [facility] [address] [id number] [place] [address] Aug, [facility] [place] [facility] [address] [id number] [place] [address] Aug, [facility] [place] [facility] [address] [id number] [place] [address] 6187 Aug, [facility] [place] [facility] [address] [id number] [place] [address] 4999 Aug, [facility] [place] [facility] [address] [id number] [place] [address] Jul, [facility] [place] [facility] [address] [id number] [place] [address] 4[address] Jul, [facility] [place] [facility] [address] [id number] [place] [address] 3630 Jul, [facility] [place] [facility] [address] [id number] [place] [address] 6130 Jul, [facility] [place] [facility] [address] [id number] [place] [address]- 6804 Jul, [facility] [place] [facility] [address] [id number] [place] [address] 7578 Jul, [facility] [place] [facility] [address] [id number] [place] [address] 9475 Jun, [facility] [place] [facility] [address] [id number] [place] [address] 9273 Jun, [facility] [place] [facility] [address] [id number] [place] [address]- 8643 Jun, [facility] [place] [facility] [address] [id number] [place] [address]- 8907 Jun, [facility] [place] [facility] [address] [id number] [place] [address]- 6371 Jun, [facility] [place] [facility] [address] [id number] [place] [address]- 2798 19 Jun, 2014 [facility] [place] [facility] [address] [id number] [place] [address]- 4501 15 Jun, 2014 [facility] [place] [facility] [address] [id number] [place] [address]- 4381 15 Jun, 2014 [facility] [place] [facility] [address] [id number] [place] [address]- 4738 May, [facility] [place] [facility] [address] [id number] [place] [address]- 4167 May, [facility] [place] [facility] [address] [id number] [place] [address]- 8626 May, [facility] [place] [facility] [address] [id number] [place] [address]- 8611 May, [facility] [place] [facility] [address] [id number] [place] [address]- 1456 May, [facility] [place] [facility] [address] [id number] [place] [address]- 9109 May, [facility] [place] [facility] [address] [id number] [place] [address]- 9294 May, [facility] [place] [facility] [address] [facility] [id number] [place] [address]- 6793 May, [facility] [place] [facility] [address] [id number] [place] [address]- 7612 May, [facility] [place] [facility] [address] [id number] [place] [address]- 1576 May, [facility] [place] [facility] [address] [id number] [place] [address] May, [facility] [place] [facility] [address] [id number] [place] [address] May, [facility] [place] [facility] [address] [id number] [place] [address] Apr, [facility] [place] [facility] [address] [id number] [place] [address]- 1419 Apr, [facility] [place] [facility] [address] [id number] [place] [address]- 9575 Apr, [facility] [place] [facility] [address] [id number] [place] [address]- 3136 Apr, [facility] [place] [facility] [address] [id number] [place] [address]- 0782 Apr, [facility] [place] [facility] [address] [id number] [place] [address]- 7738 Apr, [facility] [place] [facility] [address] [id number] [place] [address]- 0156 Apr, [facility] [place] [facility] [address] [id number] [place] [address]- 0958 Apr, [facility] [place] [facility] [address] [id number] [place] [address]- 8597 Apr, [facility] [place] [facility] [address] [id number] [place] [address]- 7804 Apr, [facility] [place] [facility] [address] [id number] [place] [address]- 2392 Apr, [facility] [place] [facility] [address] [id number] [place] [address]- 4393 Apr, [facility] [place] [facility] [address] [id number] [place] [address]- 2481 Mar, [facility] [place] [facility] [address] [id number] [place] [address]- 9186 Mar, [facility] [place] [facility] [address] [id number] [place] [address]- 2820 Mar, [facility] [place] [facility] [address] [id number] [place] [address]- 7418 Mar, [facility] [place] [facility] [address] [id number] [place] [address]- 5984 Feb, 2013 [facility] [place] [facility] [address] [id number] [place] [address]- 1501 Feb, 2013 [facility] [place] [facility] [address] [id number] [place] [address]- 6090 Feb, 2013 [facility] [place] [facility] [address] [id number] [place] [address]- 6523 Feb, 2013 [facility] [place] [facility] [address] [id number] [place] [address]- 2733 Feb, 2013 [facility] [place] [facility] [address] [id number] [place] [address]- 9286 Feb, [facility] [place] [facility] [address] [id number] [place] [address]- 4855 Jan, [facility] [place] [facility] [address] [id number] [place] [address]- 3780 Jan, [facility] [place] [facility] [address] [id number] [place] [address]- 1690 Jan, [facility] [place] [facility] [address] [id number] [place] [address]- 1194 Jan, [facility] [place] [facility] [address] [id number] [place] [address]- 6479 Jan, [facility] [place] [facility] [address] [id number] [place] [address]- 7382 Jan, [facility] [place] [facility] [address] [id number] [place] [address]- 3834 Jan, [facility] [place] [facility] [address] [id number] [place] [address]- 1255 Jan, [facility] [place] [facility] [address] [id number] [place] [address]- 4288 Jan, [facility] [place] [facility] [address] [id number] [place] [address]- 4271 Jan, [facility] [place] [facility] [address] [id number] [place] [address]- 3391 Jan, [facility] [place] [facility] [address] [id number] [place] [address]- 9104 Jan, [facility] [place] [facility] [address] [id number] [place] [address]- 5458 Jan, [facility] [place] [facility] [address] [id number] [place] [address]- 5763 Jan, [facility] [place] [facility] [address] [id number] [place] [address]- 7456 Dec, [facility] [place] [facility] [address] [id number] [place] [address]- 6638 Dec, [facility] [place] [facility] [address] [id number] [place] [address]- 6888 Dec, [facility] [place] [facility] [address] [id number] [place] [address]- 8740 Dec, [facility] [place] [facility] [address] [id number] [place] [address]- 7107 Nov, [facility] [place] [facility] [address] [id number] [place] [address]- 8654 Nov, [facility] [place] [facility] [address] [id number] [place] [address]- 3121 Nov, [facility] [place] [facility] [address] [id number] [place] [address]- 1768 Nov, [facility] [place] [facility] [address] [id number] [place] [address]- 7979 Nov, [facility] [place] [facility] [address] [id number] [place] [address]- 9986 October, [facility] [place] [facility] [address] [id number] [place] [address]- 7214 October, [facility] [place] [facility] [address] [id number] [place] [address]- 8139 October, [facility] [address] [id number] [place] [address]- 9847 October, [facility] [place] [facility] [address] [id number] [place] [address]- 5001 October, [facility] [place] [facility] [address] [id number] [place] [address] October, [facility] [place] [facility] [address] [id number] [place] [address]- 3837 October, [facility] [place] [facility] [address] [id number] [place] [address]- 4228 October, [facility] [place] [facility] [address] [id number] [place] [address]- 7749 October, [facility] [place] [facility] [address] [id number] [place] [address]- 8271 October, [facility] [place] [facility] [address] [id number] [place] [address]- 2056 October, [facility] [place] [facility] [address] [id number] [place] [address]- 4753 October, [facility] [place] [facility] [address] [id number] [place] [address]- 1188 October, [facility] [place] [facility] [address] [id number] [place] [address]- 7705 October, [facility] [place] [facility] [address] [id number] [place] [address]- 5481 Sep, [facility] [place] [facility] [address] [id number] [place] [address]- 2933 Sep, [facility] [place] [facility] [address] [id number] [place] [address]- 7084 Sep, [facility] [place] [facility] [address] [id number] [place] [address]378 Sep, [facility] [place] [facility] [address] [id number] [place] [address]- 7567 Sep, [facility] [place] [facility] [address] [id number] [place] [address]- 4204 Sep, [facility] [place] [facility] [address] [id number] [place] [address]- 0504 Sep, [facility] [place] [facility] [address] [id number] [place] [address]- 5100 Sep, [facility] [place] [facility] [address] [id number] [place] [address]- 7879 Sep, [facility] [place] [facility] [address] [id number] [place] [address]- 9330 Sep, [facility] [place] [facility] [address] [id number] [place] [address]- 9789 Sep, [facility] [place] [facility] [address] [id number] [place] [address]- 8281 Sep, [facility] [place] [facility] [address] [id number] [place] [address]- 3725 Sep, [facility] [place] [facility] [address] [id number] [place] [address]- 5879 Sep, [facility] [place] [facility] [address] [id number] [place] [address]- 6424 Sep, [facility] [place] [facility] [address] [id number] [place] [address]- 3792 Aug, [facility] [place] [facility] [address] [id number] [place] [address]- 6679 Aug, [facility] [place] [facility] [address] [id number] [place] [address]- 2133 Aug, [facility] [place] [facility] [address] [id number] [place] [address]- 8294 Aug, [facility] [place] [facility] [address] [facility] [id number] [place] [address]- 1438 Jul, [facility] [place] [facility] [address] [id number] [place] [address]- 7272 06 Jul, 2013 [facility] [place] [facility] [address] [id number] [place] [address]- 7895 Jul, [facility] [place] [facility] [address] [id number] [place] [address]- 5466 Jul, [facility] [place] [facility] [address] [id number] [place] [address]- 7342 Jun, [facility] [place] [facility] [address] [id number] [place] [address]- 5901 Jun, [facility] [place] [facility] [address] [id number] [place] [address]- 1528 Jun, [facility] [place] [facility] [address] [id number] [place] [address]- 9257 Jun, [facility] [place] [facility] [address] [id number] [place] [address]- 1914 Jun, [facility] [place] [facility] [address] [id number] [place] [address]- 4831 Jun, [facility] [place] [facility] [address] [id number] [place] [address]- 2899 Jun, [facility] [place] [facility] [address] [id number] [place] [address]- 0905 Jun, [facility] [place] [facility] [address] [id number] [place] [address]- 7889 May, [facility] [place] [facility] [address] [id number] [place] [address]- 4002 May, [facility] [place] [facility] [address] [id number] [place] [address]- 3584 May, [facility] [place] [facility] [address] [id number] [place] [address]- 3842 May, [facility] [place] [facility] [address] [id number] [place] [address]- 9701 17 May, 2013 [facility] [place] [facility] [address] [id number] [place] [id number] 17 May, 2013 [facility] [place] [facility] [address] [id number] [place] [address]- 5950 17 May, 2013 [facility] [address] [id number] [place] [address]- 8905 17 May, 2013 [facility] [address] [id number] [place] [address]- 6741 16 May, 2013 [facility] [address] [id number] [place] [address]447 16 May, 2013 [facility] [address] [id number] [place] [address]- 6979 14 May, 2013 [facility] [address] [id number] [place] [address]- 5234 14 May, 2013 [facility] [address] [id number] [place] [address]- 5046 13 May, 2013 [facility] [address] [id number] [place] [address]- 0209 13 May, 2013 [facility] [address] [id number] [place] [address]- 8196 12 May, 2013 [facility] [address] [id number] [address]- 8182 12 May, 2013 [facility] [place] [facility] [address] [id number] [address]- 2049 11 May, 2013 [facility] [place] [facility] [address] [id number] [place] 7749 11 May, 2013 [facility] [place] [facility] [address] [id number] [place] [address]- 3003 26 Apr, 2013 [facility] [place] [facility] [address] [id number] [place] [address]- 8587 Apr, [facility] [address] [id number] [place] [address]- 5792 Apr, [facility] [address] [id number] [place] [address]- 4502 Apr, [facility] [place] [facility] [address] [id number] [place] [address]- 4916 Aug, [facility] [address] [id number] [place] [address]- 6016 Aug, [facility] [place] [facility] [address] [id number] [place] [address]- 9968 Aug, [facility] [address] [id number] [place] [address]- 3208 Aug, [facility] [address] [id number] [place] [address]- 6890 Jul, [facility] [address] [id number] [place] [address]- 6049 Jun, [facility] [address] [id number] [place] [address]- 3903 Jun, [facility] [address] [id number] [place] [address]- 9006 Jun, [facility] [address] [id number] [place] [address]- 5868 Jun, [facility] [address] [id number] [place] [address]- 3314 May, [facility] [address] [id number] [place] [address]- 7782 May, [facility] [place] [facility] [address] [id number] [place] [address]- 6232 May, [facility] [place] [facility] [address] [id number] [place] [address]- 3894 May, [facility] [place] [facility] [address] [id number] [place] [address]- 8191 May, [facility] [place] [facility] [address] [id number] [place] [address]- 9069 May, [facility] [place] [facility] [address] [id number] [place] 6945 May, [facility] [place] [facility] [address] [id number] [place] [address]- 2002 Apr, [facility] [place] [facility] [address] [id number] [place] [address], [place] [address]- 8920 Apr, [facility] [place] [facility] [address] [id number] [place] [address]- 8522 Apr, [facility] [place] [facility] [address] [id number] [place] [address]- 3790 Apr, [facility] [place] [facility] [address] [id number] [place] [address]- 7469 Apr, [facility] [place] [facility] [address] [id number] [place] [address]- 6426 Apr, [facility] [place] [facility] [address] [id number] [place] [address]- 8864 Apr, [facility] [place] [facility] [address] [id number] [place] [address]- 2186 Mar, [facility] [place] [facility] [address] [id number] [place] [address]- 8064 Mar, [facility] [place] [facility] [address] [id number] [place] [address]- 5216 Mar, [facility] [place] [facility] [address] [id number] [place] [address]- 2533 Mar, [facility] [place] [facility] [address] [id number] [place] [address]- 7508 Mar, [facility] [place] [facility] [address] [id number] [place] [address]- 3106 Mar, [facility] [place] [facility] [address] [id number] [place] [address]- 0056 Mar, [facility] [place] [facility] [address] [id number] [place] [address]- 0062 Mar, [facility] [place] [facility] [address] [id number] [place] [address]- 9435 Mar, [facility] [place] [facility] [address] [id number] [place] [address]- 2996 Mar, [facility] [place] [facility] [address] [id number] [place] [address]- 4673 Mar, [facility] [place] [facility] [address] [id number] [place] [address]- 5745 Mar, [facility] [place] [facility] [address] [id number] [place] [address]- 5218 Feb, [facility] [place] [facility] [address] [id number] [place] [address]- 6091 Jan, [facility] [place] [facility] [address] [id number] [place] [address]- 4214 Jan, [facility] [place] [facility] [address] [id number] [place] [address]- 4552 Jan, [facility] [place] [facility] [address] [id number] [place] [address]- 2609 Jan, [facility] [place] [facility] [address] [id number] [place] [address]- 5311 Jan, [facility] [place] [facility] [address] [id number] [place] [address]- 1329 Dec, [facility] [place] [facility] [address] [id number] [place] [address]- 7274 Dec, [facility] [place] [facility] [address] [id number] [place] [address]- 1133 Nov, [facility] [place] [facility] [address] [id number] [place] [address]- 6187 Nov, [facility] [place] [facility] [address] [id number] [place] [address]- 7638 Nov, [facility] [address] [id number] [place] [address]- 7701 October, [facility] [address] [id number] [place] [address]- 6987 October, [facility] [address] [id number] [place] [address] October, [facility] [address] [id number] [place] [address] October, [facility] [address] [id number] [place] [address] October, [facility] [address] [id number] [place] [address] October, [facility] [address] [id number] [place] [address] October, [facility] [address] [id number] [place] [address] Sep, [facility] [address] [id number] [place] [address] Sep, [facility] [address] [id number] [place] [address] Sep, [facility] [address] [id number] [place] [address] Sep, [facility] [address] [id number] [place] [address] 24 Sep, 2011 [facility] [address] [id number] [place] [address] 19 Sep, 2011 [facility] [address] [id number] [place] [address]268 17 Sep, 2011 [facility] [address] [id number] [place] [address] 16 Sep, 2011 [facility] [place] [facility] [address] [id number] [place] [address] 16 Sep, 2011 [facility] [place] [facility] [address] [id number] [place] [address] 14 Sep, 2011 [facility] [place] [facility] [address] [id number] [place] [address] 277[address] 13 Sep, 2011 [facility] [place] [facility] [address] [id number] [place] [address]64 10 Sep, 2011 [facility] [place] [facility] [address] [id number] [place] [address] 09 Sep, 2011 [facility] [place] [facility] [address] [id number] [place] [address] 27 Aug, 2011 [facility] [place] [facility] [address] [id number] [place] [address]- [address] 12 Aug, 2011 [facility] [place] [facility] [address] [id number] [place] [address]- [address] 08 Aug, 2011 [facility] [place] [facility] [address] [id number] [place] [address] 06 Aug, 2011 [facility] [place] [facility] [address] [id number] [place] [address] 28 Jul, 2011 [facility] [place] [facility] [address] [id number] [place] [address]37 22 Jul, 2011 [facility] [place] [facility] [address] [id number] [place] [address] 2627 16 Jul, 2011 [facility] [place] [facility] [address] [id number] [place] [address]- 1563 15 Jul, 2011 [facility] [place] [facility] [address] [id number] [place] [address] 14 Jul, 2011 [facility] [place] [facility] [address] [id number] [place] [address] 7912 10 Jul, 2011 [facility] [place] [facility] [address] [id number] [place] [address] Jun, [facility] [address] [id number] [place] [address] Jun, [facility] [address] [id number] [place] [address] Jun, [facility] [address] [id number] [place] [address]- [address] Jun, [facility] [address] [id number] [place] [address] 67[address] Jun, [facility] [address] [id number] [place] [address] May, [facility] [address] [id number] [place] [address] May, [facility] [address] [id number] [place] [address] May, [facility] [address] [id number] [place] [address] May, [facility] [address] [id number] [place] [address] May, [facility] [address] [facility] [id number] [place] [address]41 May, [facility] [address] [id number] [place] [address] May, [facility] [address] [id number] [place] [address]- 270[address] 15 Apr, 2011 [facility] [address] [id number] [place] [address] 15 Apr, 2011 [facility] [address] [id number] [place] [address]- 49[address] Apr, [facility] [address] [id number] [place] [address]- 4[address] Apr, [facility] [place] [facility] [address] [id number] [place] [address]- 30[address] Apr, [facility] [place] [facility] [address] [id number] [place] [address]- 7[address] Apr, [facility] [place] [facility] [address] [id number] [place] [address] 38[address] Mar, [facility] [place] [facility] [address] [id number] [place] [address] Mar, [facility] [place] [facility] [address] [id number] [place] [address]- [address] Mar, [facility] [place] [facility] [address] [id number] [place] [address]- [address] Mar, [facility] [place] [facility] [address] [id number] [place] [address]- [address] Jan, [facility] [place] [facility] [address] [id number] [place] [address] Dec, [facility] [place] [facility] [address] [id number] [place] [address] 5[address] Dec, [facility] [place] [facility] [address] [id number] [place] [address] October, [facility] [place] [facility] [address] [id number] [place] [address]- [address] Sep, [facility] [place] [facility] [address] [id number] [place] [address]- [address] 14 Sep, 2010 [facility] [place] [facility] [address] [id number] [place] [address]- 2404 17 Jul, 2010 [facility] [place] [facility] [address] [id number] [place] [address]- 3676 16 Jul, 2010 [facility] [place] [facility] [address] [id number] [place] [address]- 9754 May, [facility] [place] [facility] [address] [id number] [place] [address]- 9[address] 27 May, 2010 [facility] [place] [facility] [address] [id number] [place] [address]- 69[address] 08 May, 2010 [facility] [place] [facility] [address] [id number] [place] [address]- [address] May, [facility] [place] [facility] [address] [id number] [place] [address]- 0806 Apr, [facility] [place] [facility] [address] [id number] [place] [address]- 5827 Apr, [facility] [place] [facility] [address] [id number] [place] [address], [place] [address]- 86[address] Apr, [facility] [place] [facility] [address] [id number] [place] [address]- 0410 Apr, [facility] [place] [facility] [address] [id number] [place] [address]- 4968 Apr, [facility] [place] [facility] [address] [id number] [place] [address]- 264[address] Mar, [facility] [place] [facility] [address] [id number] [place] [address]- 1816 14 Mar, 2010 [facility] [place] [facility] [address] [id number] [place] [address] 13 Mar, 2010 [facility] [place] [facility] [address] [id number] [address] Mar, [facility] [place] [facility] [address] [id number] [place] [address] Jan, [facility] [place] [facility] [address] [id number] [place] [address] 15 Dec, 2009 [facility] [place] [facility] [address] [id number] [place] [address] 10 Sep, 2009 [facility] [place] [facility] [address] [id number] [place] [address] May, [facility] [place] [facility] [id number] [address] May, [facility] [place] [id number] [id number] May, [facility] [place] [id number] [address] Apr, [facility] [place] [id number] [place] [id number] Apr, [facility] [place] [id number] [address] Apr, [facility] [place] [id number] [place] [id number] Apr, [facility] [place] [id number] [place] [id number] Apr, [facility] [place] [id number] [place] [address] Mar, [facility] [place] [id number] [address] Mar, [facility] [place] [id number] [address] Jul, IMMUNIZATIONS No Known Immunizations SOCIAL HISTORY Never Assessed REASON FOR VISIT Patient call PLAN OF CARE VITAL SIGNS MEDICATIONS [...] the January before. 03/2018 Hospitalization History Cellulitis-[facility]ia [facility] 12/20/15 Hospitalization History [facility] [place]- Abd pain 03/07/2017 Hospitalization History [facility] [place]- Abd pain 03/14/2017 Hospitalization History [facility] [place]- No bowel movement, rash 04/13/2017 Hospitalization History [facility] [place]- Abd pain r/t kidney surgery on 04/17/2017 Hospitalization History [facility] [place]- Abd pain r/t kidney surgery on 04/18/2017 Hospitalization History [facility] [place]- Lower abd pain 04/30/2017 Hospitalization History [facility] [place]- Cannot urinate 05/30/2017 Hospitalization History [facility] [place]- Pancreatitis Sx 06/29/2017 Hospitalization History [facility] [place]- Stomach pain 07/22/2017 Hospitalization History [facility] [place]- Left side pain 08/12/2017 Hospitalization History [facility] [place]- Incision site infection 08/30/2017 Hospitalization History [facility]- Post Op Seroma/Hematoma Left Abdomen. Discharged 09/04/17- Dr Daniel 09/02/2017 Hospitalization History [facility] [place]- Right shoulder and back pain 2017 Hospitalization History [facility] [place]- Shoulder/Back pain 11/11/2017 Hospitalization History [facility] [place]- Right shoulder blade pain 12/04/2017 Hospitalization History [facility] [place]- C-Diff 12/13/2017 Hospitalization History C diff et MRSA 12/27/2017
--- OUTSIDE RECORDS SUMMARY | 2018-05-25 10:01 | XMS REPORT ---
Author Author SAI CARMEN [facility] Address [address] [place] [address] Care Team Providers Care Leather Drier Name Role Phone SAICORTNEY KOENIGHANY Unavailable PROBLEMS Type Condition ICD9-CM Code QXR93-QX Code Onset Dates Condition Status SNOMED Code Problem Atelectasis J98.11 Active 41166968 Problem Restless leg syndrome G25.81 Active 06068322 Problem Trichotillomania F63.3 Active 44963523 Problem Primary osteoarthritis of right knee M17.11 Active 338800087877758 Problem Intestinal malabsorption, unspecified K90.9 Active 26870825 Problem Chronic post-traumatic stress disorder (PTSD) F43.12 Active 287588448 Problem Generalized social phobia F40.11 Active 75026219 Problem Chronic fatigue R53.82 Active 81134941 Problem Moderate episode of recurrent major depressive disorder F33.1 Active 088268807 Problem Chronic tension-type headache, intractable G44.221 Active 196479832 Problem Morbid (severe) obesity due to excess calories E66.01 Active 839683651 Problem Nodule of left lung R91.1 Active 794735868 Problem History of renal cell carcinoma Z85.528 Active 027876835 Problem FH: polycystic ovary Z84.2 Active 245184566 Problem Chronic pancreatitis K86.1 Active 688268251 Problem Hyperlipidemia, mixed E78.2 Active 890038590 Problem Asthma J45.909 Active 290874555 Problem Hirsuties L68.0 Active 499064032 Problem Polydipsia R63.1 Active [id number] ALLERGIES No Information ENCOUNTERS Encounter Location Date Diagnosis [facility] [address] [facility] [id number] [address] Apr, [facility] [address] [facility] [id number], [place] [address] Apr, Chronic tension-type headache, intractable G44.221 [facility] [address] [place] [address] 37247- 6040 Apr, [facility] [id number] [place] [address] 51709 -7938 Mar, [facility] [id number] [place] [address] 80551 -2180 Mar, BMI 45.0-49.9, adult Z68.[address] [facility] [id number] [place] [address] 17063- 5690 Mar, [place] [id number] [place] [address] 61567- 7615 Mar, [place] [id number] [place] [address] 26916- 8238 Mar, Decreased urination R34 ; Chronic fatigue R53.82 ; Peripheral edema R60.9 ; Diarrhea, unspecified type R19.7 ; Non-intractable vomiting with nausea, unspecified vomiting type R11.2 ; BMI 45.0-49.9, adult Z68.42 and Chronic post-traumatic stress disorder (PTSD) F43.12 [place] [id number] [place] [address] 42426- 0132 Mar, Intestinal malabsorption, unspecified K90.9 ; Diarrhea, unspecified R19.7 ; Urinary urgency R39.15 ; Rectal bleeding K62.5 and Decreased urine output R34 [place] [address] [place] [address] 85237- 3541 Mar, Decreased urine output R34 [place] [id number] [place] [address] 71658- 6002 Mar, Rectal bleeding K62.5 [place] [id number] [place] [address] 25974- 1202 Mar, Rectal bleeding K62.5 [place] [id number] [place] [address] 81630- 9041 Mar, Urinary urgency R39.15 [facility] [id number] [place] [address] 97576- 8416 Mar, Urinary urgency R39.15 [facility] [id number] [place] [address] 51628- 2768 Mar, Primary osteoarthritis of right knee M17.11 and BMI 45.0- 49.9, adult Z68.42 [facility] [id number] [place] [address] 22225- 9816 Mar, [facility] [id number] [place] [address] 12834- 7552 Feb, Left upper arm pain M79.622 [facility] [id number] [place] [address] 19471- 8508 Feb, [facility] [id number] [place] [address] 63257- 9226 Jan, Acute pain of right knee M25.561 ; Right upper quadrant abdominal pain R10.11 and BMI 45.0-49.9, adult Z68.42 [facility] [id number] [place] [address] 96574- 2231 Jan, [facility] [id number] [place] [address] 43086- 4066 Jan, [facility] [id number] [place] [address] 22293- 1544 Dec, [facility] [id number] [place] [address] 44432- 8641 Dec, Intestinal malabsorption, unspecified K90.9 and Diarrhea, unspecified R19.7 [facility] [id number] [place] [address] 01495- 8730 Dec, [facility] [id number] [place] [address] 05672- 8160 Dec, Strep throat J02.0 ; Intestinal malabsorption, unspecified K90.9 ; Diarrhea, unspecified R19.7 ; Postoperative seroma involving digestive system after non-digestive system procedure K91.873 ; Hyperlipidemia, mixed E78.2 and BMI 45.0-49.9, adult Z68.42 [facility] [address] [address] 0[address] Dec, [facility] [id number] [place] [address] 01056- 6280 Dec, Nausea R11.0 [facility] [id number] [place] [address] 89663- 0620 Dec, [facility] [id number] [place] [address] 69102 -8933 Dec, Sore throat J02.9 ; Strep throat J02.0 and BMI 45.0-49.9, adult Z68.42 [facility] [id number] [place] [address] 59071- 2781 Dec, [facility] [id number] [place] [address] 24141- 0791 Dec, [facility] [id number] [place] [address] 82816- 5242 Dec, [facility] [id number] [place] [address] 32325- 6863 Dec, [facility] [id number] [place] [address] 57418- 2553 Dec, [facility] [address] [place] [address] 71376- 6233 Dec, [facility] [id number] [place] [address] 07894- 8521 Dec, [facility] [address] [place] [address] 5443 Dec, [facility] [id number] [place] [address] 94069- 1271 Dec, Clostridium difficile colitis A04.72 ; Intractable vomiting with nausea, unspecified vomiting type R11.2 and BMI 45.0-49.9, adult Z68.42 [facility] [id number] [place] [address] 22004- 1326 Dec, [facility] [id number] [place] [address] 26707- 7461 Nov, [facility] [address] 67469- 6240 Nov, [facility] [id number] [place] [address] 35333- 1876 Nov, [facility] [id number] [place] [address] 20124- 9694 Nov, [facility] [id number] [place] [address] 55889 -2673 Nov, [facility] [id number] [place] [address] 80816- 9771 Nov, Hyperlipidemia, mixed E78.2 [facility] [id number] [place] [address] 75316 -2732 Nov, Acute suppurative otitis media of right ear without spontaneous rupture of tympanic membrane, recurrence not specified H66.001 and BMI 45.0-49.9, adult Z68.42 [facility] [id number] [place] [address] 48161- 4182 Nov, Hyperlipidemia, mixed E78.2 [facility] [id number] [place] [address] 84690- 1420 Nov, [facility] [id number] [place] [address] 73352- 3571 Nov, [facility] [id number] [place] [address] 48419- 4365 04 Nov, 2017 Nodule of left lung R91.1 [facility] [address] [place] [address]- 0479 Nov, Medicare annual wellness visit, initial Z00.00 [...] adult Z68.42 and Encounter for immunization Z23 [place] [id number] [place] [address] 23469- 7609 October, [place] [id number] [place] [address] 93845- 5918 October, Nodule of left lung R91.1 [place] [id number] [place] [address] 26977- 1665 October, Nodule of left lung R91.1 [place] [id number] [place] [address] 20504- 6645 October, Recurrent major depressive disorder, in partial remission F33.41 ; Restless leg syndrome G25.81 ; Generalized social phobia F40.11 ; Chronic post-traumatic stress disorder (PTSD) F43.12 ; BMI 45.0-49.9, adult Z68.42 and Trichotillomania F63.3 [place] [id number] [place] [address] 68036- 1441 October, [place] [id number] [place] [address] 08592- 9308 Sep, Chronic fatigue R53.82 and BMI 45.0-49.9, adult Z68.42 [place] [id number] [place] [address] 05404- 1470 Aug, [place] [id number] [place] [address] 65777- 9814 Jul, Restless leg syndrome G25.81 and B12 deficiency E53.8 [place] [id number] [place] [address] 67639- 5688 Jul, [facility] [id number] [place] [address] 02565- 1520 Jul, [place] [id number] [place] [address] 77620- 1454 Jun, [place] [id number] [place] [address] 19373- 8034 Jun, Fatigue, unspecified type R53.83 ; History of renal cell carcinoma Z85.528 ; Chronic pancreatitis K86.1 ; Restless leg syndrome G25.81 ; Dark urine R82.99 and BMI 45.0-49.9, adult Z68.42 [place] [id number] [place] [address] 65869- 6044 Jun, [place] [id number] [place] [address] 12264- 9934 Jun, [place] [id number] [place] [address] 71621- 4533 Jun, [place] [id number] [place] [address] 53408- 1974 Jun, [place] [id number] [place] [address] 44518- 1238 May, Chronic post-traumatic stress disorder (PTSD) F43.12 ; Moderate episode of recurrent major depressive disorder F33.1 ; Trichotillomania F63.3 and Generalized social phobia F40.11 [place] [id number] [place] [address] 60940- 4111 May, [place] [id number] [place] [address] 32439- 3292 May, Chronic post-traumatic stress disorder (PTSD) F43.12 ; Moderate episode of recurrent major depressive disorder F33.1 ; Trichotillomania F63.3 and Generalized social phobia F40.11 [place] [address] [place] [address] 79076- 0129 May, Hyperlipidemia, mixed E78.2 ; Morbid (severe) obesity due to excess calories E66.01 ; Chronic post-traumatic stress disorder (PTSD) F43.12 ; Moderate episode of recurrent major depressive disorder F33.1 ; Trichotillomania F63.3 and Generalized social phobia F40.11 [place] [address] [address]- 0193 30 Apr, 2017 [place] [address] [id number] [place] [address] 30357- 1588 29 Apr, 2017 Hyperlipidemia, mixed E78.2 ; Morbid (severe) obesity due to excess calories E66.01 ; Chronic post-traumatic stress disorder (PTSD) F43.12 ; Moderate episode of recurrent major depressive disorder F33.1 ; Trichotillomania F63.3 and Generalized social phobia F40.11 [place] [address] [place] [address] 28239- 5036 Apr, Trichotillomania F63.3 ; Generalized social phobia F40.11 ; Chronic post-traumatic stress disorder (PTSD) F43.12 and Moderate episode of recurrent major depressive disorder F33.1 [place] [address] [address]- 7058 15 Apr, 2017 [place] [address] [place] [address] 75130- 5438 Apr, [place] [address] [address]- 2418 Mar, Moderate episode of recurrent major depressive disorder F33.1 ; Trichotillomania F63.3 ; Chronic post-traumatic stress disorder (PTSD) F43.12 ; Generalized social phobia F40.11 and Restless leg syndrome G25.81 [place] [address] [place] [address] 07560- 4055 Mar, [facility] [id number] [place] [address] 44544- 4528 Mar, [facility] [id number] [place] [address] 43186- 3248 Feb, Left kidney mass N28.89 [facility] [id number] [place] [address] 67089- 8384 Jan, [facility] [address] 47243- 7609 Dec, Polydipsia R63.1 ; Chronic pancreatitis K86.1 and Fatigue, unspecified type R53.83 [facility] [address] 07253- 6940 Nov, [facility] [id number] [place] [address] 32109- 3888 Nov, [facility] [address] 33857- 2353 Nov, Headache around the eyes R51 [facility] [id number] [place] [address] 93092- 9963 Nov, [facility] [id number] [place] [address] 91010- 8776 October, STD exposure Z20.2 [facility] [id number] [place] [address] 41802- 4790 October, STD exposure Z20.2 [facility] [id number] [place] [address] 92451- 9595 October, Chronic post-traumatic stress disorder (PTSD) F43.12 ; Generalized social phobia F40.11 ; Trichotillomania F63.3 and Restless leg syndrome G25.81 [facility] [id number] [place] [address] 23112- 0600 October, [facility] [id number] [place] [address] 68168- 7185 Sep, [place] [id number] [place] [address] 62210- 4769 Aug, [place] [id number] [place] [address] 04363- 6660 Aug, [place] [id number] [place] [address] 49645- 6055 Aug, Neck mass R22.1 [place] [address] 59253- 5175 03 Aug, 2016 Atelectasis J98.11 [place] [address] 83337- 0892 28 Jul, 2016 Hyperlipidemia, mixed E78.2 ; Atypical pneumonia J18.9 and Neck mass R22.[address] 65695- 2937 15 Jul, 2016 Hemoptysis R04.2 [place] [address] [id number] [place] [address] 19839- 1521 08 Jul, 2016 Acute non-recurrent pansinusitis J01.40 ; Hemoptysis R04.2 ; Polydipsia R63.1 and Malaise R53.81 [facility] [place] [id number] [place] [address] 12798 -8371 May, Other viral agents as the cause of diseases classified elsewhere B97.89 and Acute upper respiratory infection, unspecified J06.9 [facility] [address] [place], [place] [id number] [place] [address] 37632 -0397 Mar, Nausea R11.0 [facility] [address] [place] [id number] [place] [address] 57323 -3179 28 Dec, 2015 Hives L50.9 [place] [id number] [place] [address] 14100- 2936 14 Dec, 2015 [facility] [address] [place] [address] -0917 10 Dec, 2015 Cutaneous abscess of limb, unspecified L02.419 ; Cellulitis of unspecified part of limb L03.119 ; Encounter for incision and drainage procedure Z01.89 and Encounter for recheck of abscess following incision and drainage Z09 [facility] [address] [place] [address] 29165 -6616 09 Dec, 2015 Abscess of leg, right L02.415 [place] [address] [place] [address] [id number] [place] [address] 22678- 8259 08 Dec, 2015 Cellulitis of unspecified part of limb L03.119 and Cutaneous abscess of limb, unspecified L02.419 [place] [address] [place] [address] [id number] [place] [address] 14760- 8714 Dec, [place] [address] [id number] [place] [address] 50162- 6468 Dec, [facility] [place] [id number] [place] [address] 95753 -2566 Aug, [place] [address] [id number] [place] [address] 02900- 9985 Aug, [facility] [place] [id number] [place] [address] 99512 -9439 04 Jul, 2015 Pain in unspecified wrist M25.539 and Back pain, thoracic M54.6 [facility] [place] [address] [place] [address] 70857 -2564 Jun, Strain of right wrist, initial encounter S66.911A [place] [address] [id number] [place] [address] 18618- 3781 11 Jun, 2015 Chronic pancreatitis, unspecified pancreatitis type K86.1 ; Hirsuties L68.0 ; Morbid (severe) obesity due to excess calories E66.01 ; Chronic pancreatitis K86.1 and Asthma J45.909 [place] [address] [id number] [place] [address] 82917- 8936 May, [facility] [address] [place] [address] 74886- 9340 May, Hyperlipidemia, mixed E78.2 and Muscle spasm of back M62.830 [facility] [id number] [place] [address] 66927- 2571 Apr, [facility] [id number] [place] [address] 85288- 0464 Apr, Torticollis M43.6 [facility] [id number] [place] [address] 10165- 0961 Apr, Right-sided thoracic back pain M54.6 [facility] [address] [id number] [place] [address] 55465- 4269 Mar, Rash R21 [facility] [id number] [place] [address] 29041- 9863 Mar, [facility] [id number] [place] [address] 23307- 5138 Jan, [facility] [id number] [place] [address] 34154- 1666 Dec, [facility] [id number] [place] [address] 35774- 0078 Dec, Urinary frequency 788.41 and Nocturia more than twice per night 788.43 [facility] [id number] [place] [address] 32576- 7181 Nov, [facility] [id number] [place] [address] 60740- 5148 Nov, [facility] [id number] [place] [address] 78808- 2454 Nov, Abdominal pain 789.00 [facility] [id number] [place] [address] 10948- 5102 October, TDAP DX V06.1 [facility] [address] [place] [address]- 9506 October, [facility] [address], [place] [address]- 3096 October, Disturbance of skin sensation 782.0 ; Wrist pain, right 719.43 ; Hyperlipidemia 272.4 and Skin lesion of face 709.9 [facility] [address], [place] [address]- 3301 Sep, [facility] [address] [facility] [id number] [address]- 0611 Sep, [facility] [address], [place] [address]- 0380 Aug, [facility] [address], [place] [address]- 6546 Aug, [facility] [address], [place] [address]- 1694 Aug, [facility] [address], [place] [address]- 2766 Aug, [facility] [address] [place] [place] [address] 1588 Aug, [facility] [address], [place] [address]- 7772 16 Aug, 2014 [facility] [address], [place] [address]- 9947 14 Aug, 2014 [facility] [address] [id number] [address]- 7491 14 Aug, 2014 [facility] [address], [place] [address]- 7147 Aug, [facility] [address] [id number] [address]- 3686 Aug, [facility] [id number] [address]- 0266 04 Aug, 2014 [facility] [place] [facility] [address] [id number] [place] [address]- 1682 Aug, [facility] [place] [facility] [address] [id number] [place] [address]- 4021 Aug, [facility] [place] [facility] [address] [id number] [place] [address]- 3657 Aug, [facility] [place] [facility] [address] [id number] [place] [address]- 0092 Jul, [facility] [place] [facility] [address] [id number] [place] [address]- 7517 Jul, [facility] [place] [facility] [address] [id number] [place] [address]- 4830 Jul, [facility] [place] [facility] [address] [id number] [place] [address]- 6980 Jul, [facility] [place] [facility] [address] [id number] [place] [address]- 6765 Jul, [facility] [place] [facility] [address] [id number] [place] [address]- 3816 Jul, [facility] [place] [facility] [address] [id number] [place] [address] Jun, [facility] [place] [facility] [address] [id number] [place] [address] Jun, [facility] [place] [facility] [address] [id number], [place] [address] Jun, [facility] [place] [facility] [address] [id number] [place] [address] Jun, [facility] [place] [facility] [address] [id number] [place] [address] Jun, [facility] [place] [facility] [address] [id number] [place] [address] Jun, [facility] [place] [facility] [address] [id number] [place] [address] 15 Jun, 2014 [facility] [place] [facility] [address] [id number] [place] [address] 15 Jun, 2014 [facility] [place] [facility] [address] [id number] [place] [address] [address] May, [facility] [place] [facility] [address] [id number] [place] [address] May, [facility] [place] [facility] [address] [id number] [place] [address] May, [facility] [place] [facility] [address] [id number] [place] [address] May, [facility] [place] [facility] [address] [id number] [place] [address] May, [facility] [place] [facility] [address] [id number] [place] [address] May, [facility] [place] [facility] [address] [id number] [place] [address] May, [facility] [place] [facility] [address] [id number] [place] [address] May, [facility] [place] [facility] [address] [id number] [place] [address] May, [facility] [place] [facility] [address] [id number] [place] [address] May, [facility] [place] [facility] [address] [id number] [place] [address] May, [facility] [place] [facility] [address] [id number] [place] [address] May, [facility] [place] [facility] [address] [id number] [place] [address] Apr, [facility] [place] [facility] [address] [id number] [place] [address] Apr, [facility] [place] [facility] [address] [id number] [place] [address] Apr, [facility] [place] [facility] [address] [id number] [place] [address] Apr, [facility] [place] [facility] [address] [id number] [place] [address] Apr, [facility] [place] [facility] [address] [id number] [place] [address] Apr, [facility] [place] [facility] [address] [id number] [place] [address] Apr, [facility] [place] [facility] [address] [id number] [place] [address] Apr, [facility] [place] [facility] [address] [id number] [place] [address] Apr, [facility] [place] [facility] [address] [address] [id number] [place] [address] Apr, [facility] [place] [facility] [address] [id number] [place] [address] Apr, [facility] [place] [facility] [address] [id number] [place] [address] 8015 Apr, [facility] [place] [facility] [address] [id number] [place] [address] 97[address] Mar, [facility] [place] [facility] [address] [id number] [place] [address] 9529 Mar, [facility] [place] [facility] [address] [id number] [place] [address] 2866 Mar, [facility] [place] [facility] [address] [id number] [place] [address] 0422 Mar, [facility] [place] [facility] [address] [id number] [place] [address] 3654 Feb, [facility] [place] [facility] [address] [id number] [place] [address]- 5527 Feb, 2013 [facility] [place] [facility] [address] [id number] [place] [address]- 7734 05 Feb, 2013 [facility] [place] [facility] [address] [id number] [place] [address]- 4697 Feb, 2013 [facility] [place] [facility] [address] [id number] [place] [address] 1236 Feb, 2013 [facility] [place] [facility] [address] [id number] [place] [address]- 0897 Feb, 2013 [facility] [place] [facility] [address] [id number] [place] [address] 5633 Jan, [facility] [place] [facility] [address] [id number] [place] [address]- 4785 Jan, [facility] [place] [facility] [address] [id number] [place] [address]- 5082 Jan, [facility] [place] [facility] [address] [id number] [place] [address]- 8287 Jan, [facility] [place] [facility] [address] [id number] [place] [address]- 8408 Jan, [facility] [place] [facility] [address] [id number] [place] [address]- 5781 Jan, [facility] [place] [facility] [address] [id number] [place] [address]- 6832 Jan, [facility] [place] [facility] [address] [id number] [place] [address]- 6530 Jan, [facility] [place] [facility] [address] [id number] [place] [address]- 7597 Jan, [facility] [place] [facility] [address] [id number] [place] [address]- 6728 Jan, [facility] [place] [facility] [address] [id number] [place] [address]- 2071 Jan, [facility] [place] [facility] [address] [id number] [place] [address]- 6839 Jan, [facility] [place] [facility] [address] [id number] [place] [address]- 5785 Jan, [facility] [place] [facility] [address] [id number] [place] [address]- 6462 Jan, [facility] [place] [facility] [address] [id number] [place] [address]- 6939 Dec, [facility] [place] [facility] [address] [id number] [place] [address]- 5033 Dec, [facility] [place] [facility] [address] [id number] [place] [address]- 1661 Dec, [facility] [place] [facility] [address] [id number] [place] [address]- 4033 Dec, [facility] [place] [facility] [address] [id number] [place] [address]- 7246 Nov, [facility] [place] [facility] [address] [id number] [place] [address]- 8609 Nov, [facility] [place] [facility] [address] [id number] [place] [address]- 9118 Nov, [facility] [place] [facility] [address] [id number] [place] [address] 5420 Nov, [facility] [place] [facility] [address] [id number] [place] [address]- 3254 Nov, [facility] [place] [facility] [address] [id number] [place] [address]- 3123 October, [facility] [place] [facility] [address] [id number] [place] [address]- 8556 October, [facility] [place] [facility] [address] [id number] [place] [address]- 9284 October, [facility] [place] [facility] [address] [id number] [place] [address]- 6059 October, [facility] [address] [id number] [place] [address] 1375 October, [facility] [place] [facility] [address] [id number] [place] [address]- 1197 October, [facility] [place] [facility] [address] [id number] [place] [address] 5308 October, [facility] [place] [facility] [address] [id number] [place] [address] 1864 October, [facility] [place] [facility] [address] [id number] [place] [address]- 6936 October, [facility] [place] [facility] [address] [id number] [place] [address]- 8971 October, [facility] [place] [facility] [address] [id number] [place] [address]- 6993 October, [facility] [place] [facility] [address] [id number] [place] [address] 7428 October, [facility] [place] [facility] [address] [id number] [place] [address]- 2430 October, [facility] [place] [facility] [address] [id number] [place] [address]- 8229 October, [facility] [place] [facility] [address] [id number] [place] [address]- 4170 Sep, [facility] [place] [facility] [address] [id number] [place] [address]- 6186 Sep, [facility] [place] [facility] [address] [id number] [place] [address] 2783 Sep, [facility] [place] [facility] [address] [id number] [place] [address]- 0797 Sep, [facility] [place] [facility] [address] [id number] [place] [address]- 9772 Sep, [facility] [place] [facility] [address] [id number] [place] [address]- 7261 Sep, [facility] [place] [facility] [address] [id number] [place] [address]- 8388 Sep, [facility] [place] [facility] [address] [id number] [place] [address]- 3272 Sep, [facility] [place] [facility] [address] [id number] [place] [address]- 4046 Sep, [facility] [place] [facility] [address] [id number] [place] [address]- 8054 Sep, [facility] [place] [facility] [address] [id number] [place] [address]- 0224 Sep, [facility] [place] [facility] [address] [id number] [place] [address]- 7586 Sep, [facility] [place] [facility] [address] [id number] [place] [address]- 5961 Sep, [facility] [place] [facility] [address] [id number] [place] [address]- 0694 Sep, [facility] [place] [facility] [address] [id number] [place] [address]- 1179 Sep, [facility] [place] [facility] [address] [facility] [id number] [place] [address] 1070 Aug, [facility] [place] [facility] [address] [id number] [place] [address]- 9911 Aug, [facility] [place] [facility] [address] [id number] [place] [address]- 9964 Aug, [facility] [place] [facility] [address] [id number] [place] [address]- 3899 Aug, [facility] [place] [facility] [address] [id number] [place] [address]- 3246 Jul, [facility] [place] [facility] [address] [facility] [id number] [place] [address]- 9987 Jul, [facility] [place] [facility] [address] [id number] [place] [address]- 8899 06 Jul, 2013 [facility] [place] [facility] [address] [id number] [place] [address]- 9766 03 Jul, 2013 [facility] [place] [facility] [address] [id number] [place] [address]- 3786 15 Jun, 2013 [facility] [place] [facility] [address] [id number] [place] [address]- 5754 Jun, [facility] [place] [facility] [address] [id number] [place] [address]- 3909 Jun, [facility] [place] [facility] [address] [id number] [place] [address]- 2987 Jun, [facility] [address] [id number] [place] [address]- 0311 Jun, [facility] [address] [id number] [place] [address]- 6443 Jun, [facility] [address] [id number] [place] [address]- 4405 Jun, [facility] [address] [id number] [place] [address]- 7068 Jun, [facility] [address] [id number] [place] [address]- 9168 May, [facility] [place] [facility] [address] [id number] [place] [address]- 8908 May, [facility] [place] [facility] [address] [id number] [place] [address]- 1564 18 May, 2013 [facility] [place] [facility] [address] [id number] [place] [address]- 1142 18 May, 2013 [facility] [place] [facility] [address] [id number] [place] [address]- 4740 17 May, 2013 [facility] [place] [facility] [address] [id number] [place] [id number] 17 May, 2013 [facility] [address] [id number] [place] [address] 17 May, 2013 [facility] [address] [id number] [place] [address]- 3856 17 May, 2013 [facility] [address] [id number] [place] [address]- 5038 16 May, 2013 [facility] [address] [id number] [place] 16 May, 2013 [facility] [address] [id number] [place] 14 May, 2013 [facility] [address] [id number] [place] [address]- 2470 14 May, 2013 [facility] [address] [id number] [place] [address]- 1229 13 May, 2013 [facility] [address] [id number] [place] [address]- 6098 13 May, 2013 [facility] [address] [id number] [place] [address]- 6160 12 May, 2013 [facility] [address] [id number] [place] [address]- 8306 12 May, 2013 [facility] [address] [id number], [place] [address]- 3915 11 May, 2013 [facility] [place] [facility] [address] [id number], [place] [address]- 2284 11 May, 2013 [facility] [place] [facility] [address] [id number] [place] [address] Apr, [facility] [place] [facility] [address] [id number] [place] [address]- 7629 Apr, [facility] [place] [facility] [address] [id number] [place] [address]- 8628 Apr, [facility] [place] [facility] [address] [id number] [place] [address]- 7314 Apr, [facility] [address] [id number] [place] [address]- 9381 27 Aug, 2012 [facility] [place] [facility] [address] [id number] [place] [address]- 0096 Aug, [facility] [address] [id number] [place] [address]- 5126 06 Aug, 2012 [facility] [place] [facility] [address] [id number] [place] [address]- 9827 05 Aug, 2012 [facility] [address] [id number] [place] [address]- 3793 Jul, [facility] [address] [id number] [place] [address]- 8526 Jun, [facility] [address] [id number] [place] [address]- 7489 Jun, [facility] [address] [id number] [place] [address]- 6524 Jun, [facility] [address] [id number] [place] 0211 Jun, [facility] [address] [id number] [place] [address]388 May, [facility] [address] [id number] [place] [address]- 1726 May, [facility] [address] [id number] [place] [address]- 2336 May, [facility] [place] [facility] [address] [id number] [place] [address]- 5810 May, [facility] [place] [facility] [address] [id number] [place] [address]- 5566 May, [facility] [address] [id number] [place] [address]- 2412 May, [facility] [place] [facility] [address] [id number] [place] [address]- 7488 May, [facility] [place] [facility] [address] [id number] [place] [address]- 0138 Apr, [facility] [place] [facility] [address] [id number] [place] [address]- 5507 Apr, [facility] [place] [facility] [address] [id number] [place] [address], [place] [address]- 0370 Apr, [facility] [place] [facility] [address] [id number] [place] [address]- 4796 Apr, [facility] [place] [facility] [address] [id number] [place] [address]- 3676 Apr, [facility] [place] [facility] [address] [id number] [place] [address]- 7428 Apr, [facility] [place] [facility] [address] [id number] [place] [address]- 4234 Apr, [facility] [place] [facility] [address] [id number] [place] [address]- 1226 Mar, [facility] [place] [facility] [address] [id number], [place] [address]- 9374 Mar, [facility] [place] [facility] [address] [facility] [id number], [place] [address]- 2694 Mar, [facility] [place] [facility] [address] [id number], [place] [address]- 2409 Mar, [facility] [place] [facility] [address] [id number], [place] [address]- 7163 Mar, [facility] [place] [facility] [address] [id number], [place] [address]- 6071 Mar, [facility] [place] [facility] [address] [id number] 1200 Mar, [facility] [place] [facility] [address] [id number], [place] [address]- 3959 Mar, [facility] [place] [facility] [address] [id number] [place] [address]- 4159 Mar, [facility] [place] [facility] [address] [id number] [place] [address]- 5726 Mar, [facility] [place] [facility] [address] [id number] [place] [address]- 2639 Mar, [facility] [place] [facility] [address] [id number] [place] [address]- 5582 Mar, [facility] [place] [facility] [address] [id number] [place] [address]- 8366 Feb, [facility] [place] [facility] [address] [id number] [place] [address]- 5826 Jan, [facility] [place] [facility] [address] [id number] [place] [address]- 9424 Jan, [facility] [place] [facility] [address] [id number] [place] [address]- 7718 Jan, [facility] [place] [facility] [address] [id number] [place] [address]- 7665 Jan, [facility] [place] [facility] [address] [id number] [place] [address]- 0615 Jan, [facility] [place] [facility] [address] [id number] [place] [address]- 8896 Dec, [facility] [place] [facility] [address] [id number] [place] [address]- 7759 Dec, [facility] [place] [facility] [address] [id number] [place] [address]- 5952 Nov, [facility] [place] [facility] [address] [id number] [place] [address]- 6406 Nov, [facility] [place] [facility] [address] [id number] [place] [address]- 4552 Nov, [facility] [place] [facility] [address] [id number] [place] [address]- 9389 October, [facility] [address] [id number] [place] [address]- 7551 October, [facility] [address] [id number] [place] [address]- 9431 October, [facility] [address] [id number] [place] [address]- 2736 October, [facility] [address] [id number] [place] [address]- 4816 October, [facility] [address] [id number] [place] [address]- 8985 October, [facility] [address] [id number] [place] [address]- 1700 October, [facility] [address] [id number] [place] [address]- 3320 Sep, [facility] [address] [id number] [place] [address]- 5446 Sep, [facility] [address] [id number] [place] [address]- 6088 Sep, [facility] [address] [id number] [place] [address]- 3253 25 Sep, 2011 [facility] [address] [id number] [place] [address]- 1881 24 Sep, 2011 [facility] [address] [id number] [place] [address]- 7410 19 Sep, 2011 [facility] [address] [id number] [place] [address]- 7543 17 Sep, 2011 [facility] [address] [id number] [place] [address]- 9075 16 Sep, 2011 [facility] [address] [id number] [place] [address]- 8118 16 Sep, 2011 [facility] [place] [facility] [address] [id number] [place] [address]- 8048 14 Sep, 2011 [facility] [place] [facility] [address] [id number] [place] [address]- 8806 13 Sep, 2011 [facility] [place] [facility] [address] [id number] [place] [address]- 8405 10 Sep, 2011 [facility] [place] [facility] [address] [id number] [place] [address]- 6997 09 Sep, 2011 [facility] [place] [facility] [address] [id number] [place] [address]- 3734 27 Aug, 2011 [facility] [place] [facility] [address] [id number] [place] [address]- 2872 12 Aug, 2011 [facility] [place] [facility] [address] [facility] [id number] [place] [address]- 4163 08 Aug, 2011 [facility] [place] [facility] [address] [id number] [place] [address]- 8000 06 Aug, 2011 [facility] [place] [facility] [address] [id number] [place] [address]- 7780 28 Jul, 2011 [facility] [place] [facility] [address] [id number] [place] [address]- 8329 22 Jul, 2011 [facility] [place] [facility] [address] [id number] [place] [address]- 2251 16 Jul, 2011 [facility] [place] [facility] [address] [id number] [place] [address]- 5895 15 Jul, 2011 [facility] [place] [facility] [address] [id number] [place] [address]- 4975 14 Jul, 2011 [facility] [place] [facility] [address] [id number] [place] [address]- 5078 10 Jul, 2011 [facility] [place] [facility] [address] [facility] [id number] [place] [address]- 9183 30 Jun, 2011 [facility] [place] [facility] [address] [id number] [place] [address]- 4359 05 Jun, 2011 [facility] [address] [id number] [place] [address]- 2971 Jun, [facility] [address] [id number] [place] [address]- 7392 Jun, [facility] [address] [id number] [place] [address]- 9182 Jun, [facility] [address] [id number] [place] [address]- 3496 May, [facility] [address] [id number] [place] [address]- 2628 May, [facility] [address] [id number] [place] [address]- 3236 May, [facility] [address] [id number] [place] [address]- 9474 May, [facility] [address] [id number] [place] [address]- 5867 May, [facility] [address] [id number] [place] [address]- 0014 May, [facility] [address] [id number] [place] [address]- 3674 05 May, 2011 [facility] [address] [id number] [place] [address]- 8234 15 Apr, 2011 [facility] [address] [id number] [place] [address]- 4429 15 Apr, 2011 [facility] [address] [id number] [place] [address] Apr, [facility] [address] [id number] [place] [address] 07 Apr, 2011 [facility] [address] [id number] [place] [address] Apr, [facility] [place] [facility] [address] [id number] [place] [address] Apr, [facility] [place] [facility] [address] [id number] [place] [address] Mar, [facility] [place] [facility] [address] [id number] [place] [address] Mar, [facility] [place] [facility] [address] [id number] [place] [address] Mar, [facility] [place] [facility] [address] [id number] [place] [address] Mar, [facility] [place] [facility] [address] [id number] [place] [address] Jan, [facility] [place] [facility] [address] [id number] [place] [address] Dec, [facility] [place] [facility] [address] [id number] [place] [address] Dec, [facility] [place] [facility] [address] [id number] [place] [address] October, [facility] [place] [facility] [address] [id number] [place] [address] Sep, [facility] [place] [facility] [address] [id number] [place] [address] Sep, [facility] [place] [facility] [address] [id number] [place] [address] Jul, [facility] [place] [facility] [address] [id number] [place] [address] Jul, [facility] [place] [facility] [address] [id number] [place] [address] 65[address] May, [facility] [place] [facility] [address] [id number] [place] [address] May, [facility] [place] [facility] [address] [id number], [place] [address] 08 May, 2010 [facility] [place] [facility] [address] [id number] [place] [address]007 May, [facility] [place] [facility] [address] [id number] [place] [address] Apr, [facility] [place] [facility] [address] [id number] [place] [address] 0394 Apr, [facility] [place] [facility] [address] [id number] [place] [address] 6769 Apr, [facility] [place] [facility] [id number] [place] [address], [place] [address] Apr, [facility] [place] [facility] [address] [id number] [place] [address]165 Apr, [facility] [address] [id number] [place] [address] Mar, [facility] [place] [facility] [address] [id number] [place] [address] 14 Mar, 2010 [facility] [place] [facility] [address] [id number] [place] [address]- [address]85 13 Mar, 2010 [facility] [place] [facility] [address] [facility] [id number] [place] [address] 8064 Mar, [facility] [place] [facility] [address] [id number] [place] [address] Jan, [facility] [place] [facility] [address] [id number], [place] [address] 15 Dec, 2009 [facility] [place] [facility] [address] [id number], [place] [address] 10 Sep, 2009 [facility] [place] [facility] [address] [id number], [place] [address] 08 May, 2009 [facility] [place] [facility] [address] [id number], [place] [address] May, [facility] [place] [facility] [id number], [place] [address] May, [facility] [id number] [id number] Apr, [facility] [id number] [address] Apr, [facility] [id number] [place] [address] Apr, [facility] [id number] [address] Apr, [facility] [id number] [place] [id number] Apr, [facility] [id number] [place] [id number] Mar, [facility] [id number] [place] [address]- [address] Mar, [facility] [id number], [place] [address] Jul, IMMUNIZATIONS No Known Immunizations SOCIAL HISTORY Never Assessed REASON FOR VISIT Patient concerns-headache PLAN OF CARE VITAL SIGNS MEDICATIONS Unknown [...] the January before. 03/2018 Hospitalization History Cellulitis-Via [facility] 12/20/15 Hospitalization History [facility]- Abd pain 03/07/2017 Hospitalization History [facility]- Abd pain 03/14/2017 Hospitalization History [facility]- No bowel movement, rash 04/13/2017 Hospitalization History [facility]- Abd pain r/t kidney surgery on 04/17/2017 Hospitalization History [facility]- Abd pain r/t kidney surgery on 04/18/2017 Hospitalization History [facility]- Lower abd pain 04/30/2017 Hospitalization History [facility]- Cannot urinate 05/30/2017 Hospitalization History [facility]- Pancreatitis Sx 06/29/2017 Hospitalization History [facility]- Stomach pain 07/22/2017 Hospitalization History [facility]- Left side pain 08/12/2017 Hospitalization History [facility]- Incision site infection 08/30/2017 Hospitalization History [facility]- Post Op Seroma/Hematoma Left Abdomen. Discharged 09/04/17- Dr Daniel 09/02/2017 Hospitalization History [facility]- Right shoulder and back pain 2017 Hospitalization History [facility]- Shoulder/Back pain 11/11/2017 Hospitalization History [facility]- Right shoulder blade pain 12/04/2017 Hospitalization History [facility]- C-Diff 12/13/2017 Hospitalization History C diff et MRSA 12/27/2017
--- OUTSIDE RECORDS SUMMARY | 2018-05-25 10:02 | XMS REPORT ---
Author Author SAI CARMEN [facility] Address [address] [place] [address] Care Team Providers Care Aircraft Tool Maker Name Role Phone SAICORTNEY KOENIGHANY Unavailable PROBLEMS Type Condition ICD9-CM Code OLK32-UP Code Onset Dates Condition Status SNOMED Code Problem Atelectasis J98.11 Active 33741842 Problem Restless leg syndrome G25.81 Active 96525662 Problem Trichotillomania F63.3 Active 16041779 Problem Primary osteoarthritis of right knee M17.11 Active [id number] Problem Intestinal malabsorption, unspecified K90.9 Active 52814895 Problem Chronic post-traumatic stress disorder (PTSD) F43.12 Active 851310395 Problem Generalized social phobia F40.11 Active 95984142 Problem Chronic fatigue R53.82 Active 39721617 Problem Moderate episode of recurrent major depressive disorder F33.1 Active 328485184 Problem Chronic tension-type headache, intractable G44.221 Active 918770417 Problem Morbid (severe) obesity due to excess calories E66.01 Active 158131406 Problem Nodule of left lung R91.1 Active 822434824 Problem History of renal cell carcinoma Z85.528 Active 877529608 Problem FH: polycystic ovary Z84.2 Active 423692584 Problem Chronic pancreatitis K86.1 Active 000906084 Problem Hyperlipidemia, mixed E78.2 Active 334805742 Problem Asthma J45.909 Active 444177157 Problem Hirsuties L68.0 Active 045328827 Problem Polydipsia R63.1 Active 66168166 ALLERGIES No Information ENCOUNTERS Encounter Location Date Diagnosis [facility] [address] [facility] [id number] [address] Apr, [facility] [address] [facility] [id number], [place] [address] Apr, Chronic tension-type headache, intractable G44.221 [facility] [address] [place] [address] 62056- 2553 Apr, [facility] [id number] [place] [address] 36375 -0850 Mar, [facility] [id number] [place] [address] 41801 -4962 Mar, BMI 45.0-49.9, adult Z68.42 and Pimples R23.8 [facility] [id number] [place] [address] 89539- 9415 Mar, [place] [id number] [place] [address] 08419- 0840 Mar, [place] [id number] [place] [address] 57419- 9045 Mar, Decreased urination R34 ; Chronic fatigue R53.82 ; Peripheral edema R60.9 ; Diarrhea, unspecified type R19.7 ; Non-intractable vomiting with nausea, unspecified vomiting type R11.2 ; BMI 45.0-49.9, adult Z68.42 and Chronic post-traumatic stress disorder (PTSD) F43.12 [place] [id number] [place] [address] 96092- 6841 Mar, Intestinal malabsorption, unspecified K90.9 ; Diarrhea, unspecified R19.7 ; Urinary urgency R39.15 ; Rectal bleeding K62.5 and Decreased urine output R34 [place] [address] [place] [address] 99869- 1988 Mar, Decreased urine output R34 [place] [address] [address] [id number] [place] [address] 68149- 0067 Mar, Rectal bleeding K62.5 [place] [id number] [place] [address] 17492- 0823 Mar, Rectal bleeding K62.5 [place] [id number] [place] [address] 95365- 5189 Mar, Urinary urgency R39.15 [facility] [id number] [place] [address] 88517- 9606 Mar, Urinary urgency R39.15 [facility] [id number] [place] [address] 16973- 8934 Mar, Primary osteoarthritis of right knee M17.11 and BMI 45.0- 49.9, adult Z68.42 [facility] [id number] [place] [address] 20338- 4796 Mar, [facility] [id number] [place] [address] 83920- 0054 Feb, Left upper arm pain M79.622 [facility] [id number] [place] [address] 24004- 2926 Feb, [facility] [id number] [place] [address] 83651- 0729 Jan, Acute pain of right knee M25.561 ; Right upper quadrant abdominal pain R10.11 and BMI 45.0-49.9, adult Z68.42 [facility] [id number] [place] [address] 62964- 0150 Jan, [facility] [id number] [place] [address] 35724- 1538 Jan, [facility] [id number] [place] [address] 56333- 8584 Dec, [facility] [id number] [place] [address] 85403- 5211 Dec, Intestinal malabsorption, unspecified K90.9 and Diarrhea, unspecified R19.7 [facility] [id number] [place] [address] 59450- 4905 Dec, [facility] [id number] [place] [address] 77082- 6347 Dec, Strep throat J02.0 ; Intestinal malabsorption, unspecified K90.9 ; Diarrhea, unspecified R19.7 ; Postoperative seroma involving digestive system after non-digestive system procedure K91.873 ; Hyperlipidemia, mixed E78.2 and BMI 45.0-49.9, adult Z68.42 [facility] [address] [address] 3358 Dec, [facility] [id number] [place] [address] 80667- 0136 Dec, Nausea R11.0 [facility] [id number] [place] [address] 13153- 6536 Dec, [facility] [id number] [place] [address] 00406 -8977 Dec, Sore throat J02.9 ; Strep throat J02.0 and BMI 45.0-49.9, adult Z68.42 [facility] [id number] [place] [address] 91860- 5542 Dec, [facility] [id number] [place] [address] 50150- 6271 Dec, [facility] [id number] [place] [address] 90185- 4607 Dec, [facility] [id number] [place] [address] 36307- 6146 Dec, [facility] [id number] [place] [address] 13248- 1473 Dec, [facility] [address] [place] [address] 84662- 3534 Dec, [facility] [id number] [place] [address] 61782- 3540 Dec, [facility] [address] [id number] [address]- 4670 Dec, [facility] [id number] [place] [address] 47017- 6722 Dec, Clostridium difficile colitis A04.72 ; Intractable vomiting with nausea, unspecified vomiting type R11.2 and BMI 45.0-49.9, adult Z68.42 [facility] [id number] [place] [address] 40224- 0955 Dec, [facility] [id number] [place] [address] 53807- 3927 Nov, [facility] [address] 94574- 1624 Nov, [facility] [id number] [place] [address] 04955- 1443 Nov, [facility] [id number] [place] [address] 99338- 2299 Nov, [facility] [id number] [place] [address] 40483 -0585 Nov, [facility] [id number] [place] [address] 53679- 6653 Nov, Hyperlipidemia, mixed E78.2 [facility]ALK IN [facility] [id number] [place] [address] 41259 -0204 Nov, Acute suppurative otitis media of right ear without spontaneous rupture of tympanic membrane, recurrence not specified H66.001 and BMI 45.0-49.9, adult Z68.42 [facility] [id number] [place] [address] 68299- 2633 Nov, Hyperlipidemia, mixed E78.2 [facility] [id number] [place] [address] 49930- 8122 Nov, [facility] [id number] [place] [address] 63847- 5104 Nov, [facility] [id number] [place] [address] 20628- 2521 04 Nov, 2017 Nodule of left lung R91.1 [facility] [address] [place] [address]- 4241 Nov, Medicare annual wellness visit, initial Z00.00 [...] adult Z68.42 and Encounter for immunization Z23 [place] [id number] [place] [address] 56854- 8603 October, [place] [id number] [place] [address] 50099- 4497 October, Nodule of left lung R91.1 [place] [id number] [place] [address] 24661- 2845 October, Nodule of left lung R91.1 [place] [id number] [place] [address] 29177- 3493 October, Recurrent major depressive disorder, in partial remission F33.41 ; Restless leg syndrome G25.81 ; Generalized social phobia F40.11 ; Chronic post-traumatic stress disorder (PTSD) F43.12 ; BMI 45.0-49.9, adult Z68.42 and Trichotillomania F63.3 [place] [id number] [place] [address] 11796- 4422 October, [place] [id number] [place] [address] 93522- 9517 Sep, Chronic fatigue R53.82 and BMI 45.0-49.9, adult Z68.42 [place] [id number] [place] [address] 51563- 5774 Aug, [place] [id number] [place] [address] 74753- 8795 Jul, Restless leg syndrome G25.81 and B12 deficiency E53.8 [place] [id number] [place] [address] 79192- 0905 Jul, [facility] [id number] [place] [address] 83572- 1324 Jul, [place] [id number] [place] [address] 15546- 1024 Jun, [place] [id number] [place] [address] 20084- 1530 Jun, Fatigue, unspecified type R53.83 ; History of renal cell carcinoma Z85.528 ; Chronic pancreatitis K86.1 ; Restless leg syndrome G25.81 ; Dark urine R82.99 and BMI 45.0-49.9, adult Z68.42 [place] [id number] [place] [address] 93736- 7771 Jun, [place] [id number] [place] [address] 96866- 3258 Jun, [place] [id number] [place] [address] 19992- 9163 Jun, [place] [id number] [place] [address] 08235- 4729 Jun, [place] [id number] [place] [address] 15184- 7475 May, Chronic post-traumatic stress disorder (PTSD) F43.12 ; Moderate episode of recurrent major depressive disorder F33.1 ; Trichotillomania F63.3 and Generalized social phobia F40.11 [place] [id number] [place] [address] 59612- 5978 May, [place] [id number] [place] [address] 90689- 6292 May, Chronic post-traumatic stress disorder (PTSD) F43.12 ; Moderate episode of recurrent major depressive disorder F33.1 ; Trichotillomania F63.3 and Generalized social phobia F40.11 [place] [address] [place] [address] 56590- 1392 May, Hyperlipidemia, mixed E78.2 ; Morbid (severe) obesity due to excess calories E66.01 ; Chronic post-traumatic stress disorder (PTSD) F43.12 ; Moderate episode of recurrent major depressive disorder F33.1 ; Trichotillomania F63.3 and Generalized social phobia F40.11 [place] [address] [address]- 8259 30 Apr, 2017 [place] [id number] [place] [address] 33810- 1655 29 Apr, 2017 Hyperlipidemia, mixed E78.2 ; Morbid (severe) obesity due to excess calories E66.01 ; Chronic post-traumatic stress disorder (PTSD) F43.12 ; Moderate episode of recurrent major depressive disorder F33.1 ; Trichotillomania F63.3 and Generalized social phobia F40.11 [place] [address] [place] [address] 04173- 3644 Apr, Trichotillomania F63.3 ; Generalized social phobia F40.11 ; Chronic post-traumatic stress disorder (PTSD) F43.12 and Moderate episode of recurrent major depressive disorder F33.1 [place] [address] [address]- 1793 15 Apr, 2017 [place] [address] [place] [address] 25562- 6032 Apr, [place] [address] [address]- 0717 Mar, Moderate episode of recurrent major depressive disorder F33.1 ; Trichotillomania F63.3 ; Chronic post-traumatic stress disorder (PTSD) F43.12 ; Generalized social phobia F40.11 and Restless leg syndrome G25.81 [place] [address] [place] [address] 24361- 7501 Mar, [facility] [id number] [place] [address] 55696- 2794 Mar, [facility] [id number] [place] [address] 42674- 5402 Feb, Left kidney mass N28.89 [facility] [id number] [place] [address] 54063- 3508 Jan, [facility] [address] 58181- 1964 Dec, Polydipsia R63.1 ; Chronic pancreatitis K86.1 and Fatigue, unspecified type R53.83 [facility] [address] 16990- 3855 Nov, [facility] [id number] [place] [address] 49324- 1117 Nov, [facility] [address] 27420- 0644 Nov, Headache around the eyes R51 [facility] [id number] [place] [address] 70728- 9131 Nov, [facility] [id number] [place] [address] 28326- 1203 October, STD exposure Z20.2 [facility] [id number] [place] [address] 00176- 7198 October, STD exposure Z20.2 [facility] [id number] [place] [address] 65608- 4394 October, Chronic post-traumatic stress disorder (PTSD) F43.12 ; Generalized social phobia F40.11 ; Trichotillomania F63.3 and Restless leg syndrome G25.81 [facility] [id number] [place] [address] 64644- 3895 October, [facility] [id number] [place] [address] 94034- 8754 Sep, [place] [id number] [place] [address] 13138- 3954 Aug, [place] [id number] [place] [address] 12583- 2594 Aug, [place] [id number] [place] [address] 48705- 2840 Aug, Neck mass R22.1 [place] [address] 41509- 3249 03 Aug, 2016 Atelectasis J98.11 [place] [address] 54191- 0026 28 Jul, 2016 Hyperlipidemia, mixed E78.2 ; Atypical pneumonia J18.9 and Neck mass R22.[address] 07785- 6336 15 Jul, 2016 Hemoptysis R04.2 [place] [id number] [place] [address] 32187- 5573 08 Jul, 2016 Acute non-recurrent pansinusitis J01.40 ; Hemoptysis R04.2 ; Polydipsia R63.1 and Malaise R53.81 [facility] [place] [id number] [place] [address] 51971 -9005 May, Other viral agents as the cause of diseases classified elsewhere B97.89 and Acute upper respiratory infection, unspecified J06.9 [facility] [address] [place] [id number] [place] [address] 00345 -5389 Mar, Nausea R11.0 [facility] [address] [place] [id number] [place] [address] 41265 -2187 28 Dec, 2015 Hives L50.9 [place] [id number] [place] [address] 89132- 7656 14 Dec, 2015 [facility] [address] [place] [address] -5744 10 Dec, 2015 Cutaneous abscess of limb, unspecified L02.419 ; Cellulitis of unspecified part of limb L03.119 ; Encounter for incision and drainage procedure Z01.89 and Encounter for recheck of abscess following incision and drainage Z09 [facility] [address] [place] [address] 38453 -8020 09 Dec, 2015 Abscess of leg, right L02.415 [place] [id number] [place] [address] 88711- 5802 08 Dec, 2015 Cellulitis of unspecified part of limb L03.119 and Cutaneous abscess of limb, unspecified L02.419 [place] [id number] [place] [address] 90593- 1658 Dec, [place] [id number] [place] [address] 78699- 2300 Dec, [facility] [place] [id number] [place] [address] 27476 -1276 Aug, [place] [id number] [place] [address] 31842- 4207 Aug, [facility] [place] [id number] [place] [address] 81428 -8007 04 Jul, 2015 Pain in unspecified wrist M25.539 and Back pain, thoracic M54.6 [facility] [place] [address] [place] [address] 34102 -1241 Jun, Strain of right wrist, initial encounter S66.911A [place] [id number] [place] [address] 36554- 9141 11 Jun, 2015 Chronic pancreatitis, unspecified pancreatitis type K86.1 ; Hirsuties L68.0 ; Morbid (severe) obesity due to excess calories E66.01 ; Chronic pancreatitis K86.1 and Asthma J45.909 [place] [id number] [place] [address] 60914- 3085 May, [facility] [address] [place] [address] 83332- 7929 May, Hyperlipidemia, mixed E78.2 and Muscle spasm of back M62.830 [facility] [id number] [place] [address] 42215- 6216 Apr, [facility] [id number] [place] [address] 26649- 0565 Apr, Torticollis M43.6 [facility] [id number] [place] [address] 35033- 5082 Apr, Right-sided thoracic back pain M54.6 [facility] [id number] [place] [address] 45928- 2265 Mar, Rash R21 [facility] [id number] [place] [address] 13194- 2005 Mar, [facility] [id number] [place] [address] 89496- 2047 Jan, [facility] [id number] [place] [address] 05352- 3241 Dec, [facility] [id number] [place] [address] 98165- 4750 Dec, Urinary frequency 788.41 and Nocturia more than twice per night 788.43 [facility] [id number] [place] [address] 16951- 8818 Nov, [facility] [id number] [place] [address] 90935- 7482 Nov, [facility] [id number] [place] [address] 58939- 7698 Nov, Abdominal pain 789.00 [facility] [id number] [place] [address] 97206- 2704 October, TDAP DX V06.1 [facility] [address] [place] [place] [address]- 4866 October, [facility] [address], [place] [address]- 1076 October, Disturbance of skin sensation 782.0 ; Wrist pain, right 719.43 ; Hyperlipidemia 272.4 and Skin lesion of face 709.9 [facility] [address], [place] [address]- 2573 Sep, [facility] [address] [facility] [id number] [address]- 7837 Sep, [facility] [address], [place] [address]- 8158 Aug, [facility] [address], [place] [address]- 3906 Aug, [facility] [address], [place] [address]- 0696 Aug, [facility] [address], [place] [address]- 6607 Aug, [facility] [id number] [address]- 3668 Aug, [facility] [address], [place] [address]- 1468 16 Aug, 2014 [facility] [address], [place] [address]- 6156 14 Aug, 2014 [facility] [address] [id number] [address]- 9714 14 Aug, 2014 [facility] [address], [place] [address]- 5108 Aug, [facility] [id number], [place] [address]- 8856 Aug, [facility] [id number] [address]- 9916 04 Aug, 2014 [facility] [place] [facility] [address] [id number] [place] [address]- 5540 Aug, [facility] [place] [facility] [address] [id number] [place] [address]- 6931 Aug, [facility] [place] [facility] [address] [id number] [place] [address]- 5871 Aug, [facility] [place] [facility] [address] [id number] [place] [address] Jul, [facility] [place] [facility] [address] [id number] [place] [address] Jul, [facility] [place] [facility] [address] [id number] [place] [address] Jul, [facility] [place] [facility] [address] [id number] [place] [address] Jul, [facility] [place] [facility] [address] [id number] [place] [address] Jul, [facility] [place] [facility] [address] [id number] [place] [address] Jul, [facility] [place] [facility] [address] [id number] [place] [address] Jun, [facility] [place] [facility] [address] [id number] [place] [address] Jun, [facility] [place] [facility] [address] [id number], [place] [address] Jun, [facility] [place] [facility] [address] [id number] [place] [address] Jun, [facility] [place] [facility] [address] [id number] [place] [address] Jun, [facility] [place] [facility] [address] [id number] [place] [address] Jun, [facility] [place] [facility] [address] [id number] [place] [address] 15 Jun, 2014 [facility] [place] [facility] [address] [id number] [place] [address] 15 Jun, 2014 [facility] [place] [facility] [address] [id number] [place] [address] [address] May, [facility] [place] [facility] [address] [id number] [place] [address] May, [facility] [place] [facility] [address] [id number] [place] [address]- [address] May, [facility] [place] [facility] [address] [id number] [place] [address] May, [facility] [place] [facility] [address] [id number] [place] [address]- [address] May, [facility] [place] [facility] [address] [id number] [place] [address]- [address] May, [facility] [place] [facility] [address] [id number] [place] [address] May, [facility] [place] [facility] [address] [id number] [place] [address] May, [facility] [place] [facility] [address] [id number] [place] [address]- [address] May, [facility] [place] [facility] [address] [id number] [place] [address] May, [facility] [place] [facility] [address] [id number] [place] [address]- [address] May, [facility] [place] [facility] [address] [id number] [place] [address] May, [facility] [place] [facility] [address] [id number] [place] [address] Apr, [facility] [place] [facility] [address] [id number] [place] [address] Apr, [facility] [place] [facility] [address] [id number] [place] [address] Apr, [facility] [place] [facility] [address] [id number] [place] [address] Apr, [facility] [place] [facility] [address] [id number] [place] [address] Apr, [facility] [place] [facility] [address] [id number] [place] [address] Apr, [facility] [place] [facility] [address] [id number] [place] [address] Apr, [facility] [place] [facility] [address] [id number] [place] [address] 9572 Apr, [facility] [place] [facility] [address] [id number] [place] [address]- 2506 Apr, [facility] [place] [facility] [address] [id number] [place] [address] 3875 Apr, [facility] [place] [facility] [address] [id number] [place] [address] 2003 Apr, [facility] [place] [facility] [address] [id number] [place] [address]- 6394 Apr, [facility] [place] [facility] [address] [id number] [place] [address] 0737 Mar, [facility] [place] [facility] [address] [id number] [place] [address]- 8419 Mar, [facility] [place] [facility] [address] [id number] [place] [address]- 2776 Mar, [facility] [place] [facility] [address] [id number] [place] [address]- 9030 Mar, [facility] [place] [facility] [address] [id number] [place] [address]- 3008 Feb, [facility] [place] [facility] [address] [id number] [place] [address]- 8060 Feb, 2013 [facility] [place] [facility] [address] [id number] [place] [address]- 8763 05 Feb, 2013 [facility] [place] [facility] [address] [id number] [place] [address]- 1030 Feb, 2013 [facility] [place] [facility] [address] [id number] [place] [address]- 5234 Feb, 2013 [facility] [place] [facility] [address] [id number] [place] [address]- 3585 Feb, 2013 [facility] [place] [facility] [address] [id number] [place] [address]- 8840 Jan, [facility] [place] [facility] [address] [id number] [place] [address]- 3108 Jan, [facility] [place] [facility] [address] [id number] [place] [address]- 0619 Jan, [facility] [place] [facility] [address] [id number] [place] [address]- 2302 Jan, [facility] [place] [facility] [address] [id number] [place] [address]- 2058 Jan, [facility] [place] [facility] [address] [id number] [place] [address]- 8095 Jan, [facility] [place] [facility] [address] [id number] [place] [address]- 3592 Jan, [facility] [place] [facility] [address] [id number] [place] [address]- 5332 Jan, [facility] [place] [facility] [address] [id number] [place] [address]- 0466 Jan, [facility] [place] [facility] [address] [id number] [place] [address]- 4798 Jan, [facility] [place] [facility] [address] [id number] [place] [address]- 4101 Jan, [facility] [place] [facility] [address] [id number] [place] [address]- 7448 Jan, [facility] [place] [facility] [address] [id number] [place] [address]- 6804 Jan, [facility] [place] [facility] [address] [id number] [place] [address]- 4282 Jan, [facility] [place] [facility] [address] [id number] [place] [address]- 6707 Dec, [facility] [place] [facility] [address] [id number] [place] [address]- 0578 Dec, [facility] [place] [facility] [address] [id number] [place] [address]- 1235 Dec, [facility] [place] [facility] [address] [id number] [place] [address]- 0386 Dec, [facility] [place] [facility] [address] [id number] [place] [address]- 1630 Nov, [facility] [place] [facility] [address] [id number] [place] [address]- 2510 Nov, [facility] [place] [facility] [address] [id number] [place] [address]- 5220 Nov, [facility] [place] [facility] [address] [id number] [place] [address]- 8900 Nov, [facility] [place] [facility] [address] [id number] [place] [address]- 7528 Nov, [facility] [place] [facility] [address] [id number] [place] [address]- 1472 October, [facility] [place] [facility] [address] [id number] [place] [address]- 6572 October, [facility] [place] [facility] [address] [id number] [place] [address]- 4022 October, [facility] [place] [facility] [address] [id number] [place] [address]- 6091 October, [facility] [address] [id number] [place] [address]- 1216 October, [facility] [place] [facility] [address] [id number] [place] [address]- 9076 October, [facility] [place] [facility] [address] [id number] [place] [address]- 1306 October, [facility] [place] [facility] [address] [id number] [place] [address]- 5613 October, [facility] [place] [facility] [address] [id number] [place] [address]- 6286 October, [facility] [place] [facility] [address] [id number] [place] [address]- 7087 October, [facility] [place] [facility] [address] [id number] [place] [address]- 4784 October, [facility] [place] [facility] [address] [id number] [place] [address]- 8673 October, [facility] [place] [facility] [address] [id number] [place] [address]- 2650 October, [facility] [place] [facility] [address] [id number] [place] [address]- 6414 October, [facility] [place] [facility] [address] [id number] [place] [address]- 9171 Sep, [facility] [place] [facility] [address] [id number] [place] [address]- 2051 Sep, [facility] [place] [facility] [address] [id number] [place] [address]- 5718 Sep, [facility] [place] [facility] [address] [id number] [place] [address]- 3285 Sep, [facility] [place] [facility] [address] [id number] [place] [address]- 9441 Sep, [facility] [place] [facility] [address] [id number] [place] [address]- 4566 Sep, [facility] [place] [facility] [address] [id number] [place] [address]- 9311 Sep, [facility] [place] [facility] [address] [id number] [place] [address]- 3278 Sep, [facility] [place] [facility] [address] [id number] [place] [address]- 7060 Sep, [facility] [place] [facility] [address] [id number] [place] [address]- 3882 Sep, [facility] [place] [facility] [address] [id number] [place] [address]- 7089 Sep, [facility] [place] [facility] [address] [id number] [place] [address]- 4583 Sep, [facility] [place] [facility] [address] [id number] [place] [address]- 7565 Sep, [facility] [place] [facility] [address] [id number] [place] [address]- 8427 Sep, [facility] [place] [facility] [address] [id number] [place] [address]- 2450 Sep, [facility] [place] [facility] [address] [facility] [id number] [place] [address]- 4840 Aug, [facility] [place] [facility] [address] [id number] [place] [address]- 7693 Aug, [facility] [place] [facility] [address] [id number] [place] [address]- 9510 Aug, [facility] [place] [facility] [address] [id number] [place] [address]- 5951 Aug, [facility] [place] [facility] [address] [id number] [place] [address]- 6206 Jul, [facility] [place] [facility] [address] [facility] [id number] [place] [address]- 0675 Jul, [facility] [place] [facility] [address] [id number] [place] [address]- 0657 06 Jul, 2013 [facility] [place] [facility] [address] [id number] [place] [address]- 2576 03 Jul, 2013 [facility] [place] [facility] [address] [id number] [place] [address]- 8886 15 Jun, 2013 [facility] [place] [facility] [address] [id number] [place] [address]- 1457 Jun, [facility] [place] [facility] [address] [id number] [place] [address]- 7845 Jun, [facility] [place] [facility] [address] [id number] [place] [address]- 0310 Jun, [facility] [address] [id number] [place] [address]- 4049 Jun, [facility] [address] [id number] [place] [address]- 4891 Jun, [facility] [address] [id number] [place] [address]- 3834 Jun, [facility] [address] [id number] [place] [address]- 7158 Jun, [facility] [address] [id number] [place] [address]- 8628 May, [facility] [place] [facility] [address] [id number] [place] [address]- 5479 May, [facility] [place] [facility] [address] [id number] [place] [address]- 9946 18 May, 2013 [facility] [place] [facility] [address] [id number] [place] [address]- 2494 18 May, 2013 [facility] [place] [facility] [address] [id number] [place] [address]- 1977 17 May, 2013 [facility] [place] [facility] [address] [id number] [place] [id number] 17 May, 2013 [facility] [address] [id number] [place] [address] 17 May, 2013 [facility] [address] [id number] [place] [address]- 1166 17 May, 2013 [facility] [address] [id number] [place] [address]- 7640 16 May, 2013 [facility] [address] [id number] [place] [address]761 16 May, 2013 [facility] [address] [id number] [place] 8766 14 May, 2013 [facility] [address] [id number] [place] [address]- 9906 14 May, 2013 [facility] [address] [id number] [place] [address]- 0110 13 May, 2013 [facility] [address] [id number] [place] [address]- 1982 13 May, 2013 [facility] [address] [id number] [place] [address]- 1923 12 May, 2013 [facility] [address] [id number] [place] [address]- 9345 12 May, 2013 [facility] [address] [id number], [place] [address]- 9775 11 May, 2013 [facility] [place] [facility] [address] [id number], [place] [address]- 1721 11 May, 2013 [facility] [place] [facility] [address] [id number] [place] [address]096 Apr, [facility] [place] [facility] [address] [id number] [place] [address]- 0071 Apr, [facility] [place] [facility] [address] [id number] [place] [address]- 2988 Apr, [facility] [place] [facility] [address] [id number] [place] [address]- 3303 Apr, [facility] [address] [id number] [place] [address]- 7339 27 Aug, 2012 [facility] [place] [facility] [address] [id number] [place] [address]- 8996 Aug, [facility] [address] [id number] [place] [address]- 1826 06 Aug, 2012 [facility] [place] [facility] [address] [id number] [place] [address]- 7515 05 Aug, 2012 [facility] [address] [id number] [place] [address]- 7584 Jul, [facility] [address] [id number] [place] [address]- 6771 Jun, [facility] [address] [id number] [place] [address]- 8401 Jun, [facility] [address] [id number] [place] [address]- 2633 Jun, [facility] [address] [id number] [place] [address] Jun, [facility] [address] [id number] [place] [address] May, [facility] [address] [id number] [place] [address]- 0716 May, [facility] [address] [id number] [place] [address]- 7809 May, [facility] [place] [facility] [address] [id number] [place] [address]- 9966 May, [facility] [place] [facility] [address] [id number] [place] [address]- 2426 May, [facility] [address] [id number] [place] [address]- 8622 May, [facility] [place] [facility] [address] [id number] [place] [address]- 8346 May, [facility] [place] [facility] [address] [id number] [place] [address]- 8382 Apr, [facility] [place] [facility] [address] [id number] [place] [address]- 3549 Apr, [facility] [place] [facility] [address] [id number] [place] [address], [place] [address]- 4585 Apr, [facility] [place] [facility] [address] [id number] [place] [address]- 3339 Apr, [facility] [place] [facility] [address] [id number] [place] [address]- 2513 Apr, [facility] [place] [facility] [address] [id number] [place] [address]- 1732 Apr, [facility] [place] [facility] [address] [id number] [place] [address]- 3186 Apr, [facility] [place] [facility] [address] [id number] [place] [address]- 0523 Mar, [facility] [place] [facility] [address] [id number], [place] [address]- 0411 Mar, [facility] [place] [facility] [address] [facility] [id number], [place] [address]- 5154 Mar, [facility] [place] [facility] [address] [id number], [place] [address]- 0252 Mar, [facility] [place] [facility] [address] [id number], [place] [address]- 2310 Mar, [facility] [place] [facility] [address] [id number], [place] [address]- 8097 Mar, [facility] [place] [facility] [address] [id number] [address]32 Mar, [facility] [place] [facility] [address] [id number], [place] [address]- 9030 Mar, [facility] [place] [facility] [address] [id number] [place] [address]- 9170 Mar, [facility] [place] [facility] [address] [id number] [place] [address]- 0956 Mar, [facility] [place] [facility] [address] [id number] [place] [address]- 5462 Mar, [facility] [place] [facility] [address] [id number] [place] [address]- 6221 Mar, [facility] [place] [facility] [address] [id number] [place] [address]- 5587 Feb, [facility] [place] [facility] [address] [id number] [place] [address]- 2015 Jan, [facility] [place] [facility] [address] [id number] [place] [address]- 5295 Jan, [facility] [place] [facility] [address] [id number] [place] [address]- 5416 Jan, [facility] [place] [facility] [address] [id number] [place] [address]- 3717 Jan, [facility] [place] [facility] [address] [id number] [place] [address]- 8700 Jan, [facility] [place] [facility] [address] [id number] [place] [address]- 9310 Dec, [facility] [place] [facility] [address] [id number] [place] [address]- 7864 Dec, [facility] [place] [facility] [address] [id number] [place] [address]- 6761 Nov, [facility] [place] [facility] [address] [id number] [place] [address]- 2004 Nov, [facility] [place] [facility] [address] [id number] [place] [address]- 4600 Nov, [facility] [place] [facility] [address] [id number] [place] [address]- 7188 October, [facility] [address] [id number] [place] [address]- 6580 October, [facility] [address] [id number] [place] [address]- 3140 October, [facility] [address] [id number] [place] [address]- 5067 October, [facility] [address] [id number] [place] [address]- 7096 October, [facility] [address] [id number] [place] [address]- 6235 October, [facility] [address] [id number] [place] [address]- 6381 October, [facility] [address] [id number] [place] [address]- 0112 Sep, [facility] [address] [id number] [place] [address]- 0726 Sep, [facility] [address] [id number] [place] [address]- 9105 Sep, [facility] [address] [id number] [place] [address]- 8968 25 Sep, 2011 [facility] [address] [id number] [place] [address]- 2100 24 Sep, 2011 [facility] [address] [id number] [place] [address]- 9423 19 Sep, 2011 [facility] [address] [id number] [place] [address]- 6938 17 Sep, 2011 [facility] [address] [id number] [place] [address]- 9465 16 Sep, 2011 [facility] [address] [id number] [place] [address]- 8683 16 Sep, 2011 [facility] [place] [facility] [address] [id number] [place] [address]- 5637 14 Sep, 2011 [facility] [place] [facility] [address] [id number] [place] [address]- 1336 13 Sep, 2011 [facility] [place] [facility] [address] [id number] [place] [address]- 1173 10 Sep, 2011 [facility] [place] [facility] [address] [id number] [place] [address]- 9046 09 Sep, 2011 [facility] [place] [facility] [address] [id number] [place] [address]- 9280 27 Aug, 2011 [facility] [place] [facility] [address] [id number] [place] [address]- 8908 12 Aug, 2011 [facility] [place] [facility] [address] [facility] [id number] [place] [address]- 9410 08 Aug, 2011 [facility] [place] [facility] [address] [id number] [place] [address]- 9588 06 Aug, 2011 [facility] [place] [facility] [address] [id number] [place] [address]- 5520 28 Jul, 2011 [facility] [place] [facility] [address] [id number] [place] [address]- 4156 22 Jul, 2011 [facility] [place] [facility] [address] [id number] [place] [address]- 0820 16 Jul, 2011 [facility] [place] [facility] [address] [id number] [place] [address]- 9155 15 Jul, 2011 [facility] [place] [facility] [address] [id number] [place] [address]- 5304 14 Jul, 2011 [facility] [place] [facility] [address] [id number] [place] [address]- 1644 10 Jul, 2011 [facility] [place] [facility] [address] [facility] [id number] [place] [address]- 8892 30 Jun, 2011 [facility] [place] [facility] [address] [id number] [place] [address]- 2048 05 Jun, 2011 [facility] [address] [id number] [place] [address]- 7857 Jun, [facility] [address] [id number] [place] [address]- 7068 Jun, [facility] [address] [id number] [place] [address]- 8388 Jun, [facility] [address] [id number] [place] [address]- [address] May, [facility] [address] [id number] [place] [address] May, [facility] [address] [id number] [place] [address] May, [facility] [address] [id number] [place] [address] May, [facility] [address] [id number] [place] [address] May, [facility] [address] [id number] [place] [address] May, [facility] [address] [id number] [place] [address] 05 May, 2011 [facility] [address] [id number] [place] [address] 15 Apr, 2011 [facility] [address] [id number] [place] [address] 15 Apr, 2011 [facility] [address] [id number] [place] [address] Apr, [facility] [address] [id number] [place] [address] 07 Apr, 2011 [facility] [address] [id number] [place] [address] Apr, [facility] [place] [facility] [address] [id number] [place] [address]- 7027 Apr, [facility] [place] [facility] [address] [id number] [place] [address] Mar, [facility] [place] [facility] [address] [id number] [place] [address] 4206 Mar, [facility] [place] [facility] [address] [id number] [place] [address] Mar, [facility] [place] [facility] [address] [id number] [place] [address] Mar, [facility] [place] [facility] [address] [id number] [place] [address] Jan, [facility] [place] [facility] [address] [id number] [place] [address] Dec, [facility] [place] [facility] [address] [id number] [place] [address] Dec, [facility] [place] [facility] [address] [id number] [place] [address] October, [facility] [place] [facility] [address] [id number] [place] [address] Sep, [facility] [place] [facility] [address] [id number] [place] [address] Sep, [facility] [place] [facility] [address] [id number] [place] [address] Jul, [facility] [place] [facility] [address] [id number] [place] [address] Jul, [facility] [place] [facility] [address] [id number] [place] [address] May, [facility] [place] [facility] [address] [id number] [place] [address] 1196 May, [facility] [place] [facility] [address] [id number], [place] [address] 08 May, 2010 [facility] [place] [facility] [address] [id number] [place] [address] 1138 May, [facility] [place] [facility] [address] [id number] [place] [address] 6[address] Apr, [facility] [place] [facility] [address] [id number] [place] [address] 59[address] Apr, [facility] [place] [facility] [address] [id number] [place] [address] Apr, [facility] [place] [facility] [address] [id number] [place] [address], [place] [address]- [address] Apr, [facility] [place] [facility] [address] [id number] [place] [address] Apr, [facility] [address] [id number] [place] [address] Mar, [facility] [place] [facility] [address] [id number] [place] [address] 14 Mar, 2010 [facility] [place] [facility] [address] [id number] [place] [address]48 13 Mar, 2010 [facility] [place] [facility] [address] [facility] [id number] [place] [address] Mar, [facility] [place] [facility] [address] [id number] [place] [address] Jan, [facility] [place] [facility] [address] [id number], [place] [address] 15 Dec, 2009 [facility] [place] [facility] [address] [id number], [place] [address] 10 Sep, 2009 [facility] [place] [facility] [address] [id number], [place] [address] 08 May, 2009 [facility] [place] [facility] [address] [id number], [place] [address] May, [facility] [place] [facility] [id number], [place] [address] May, [facility] [id number] [address] [address] Apr, [facility] [id number] [address] [address] Apr, [facility] [id number] [place] [id number]- [address] Apr, [facility] [id number] [place] [address] 663086- 164[address] Apr, [facility] [id number] [place] [address] [id number]- 8329 Apr, [facility] [id number] [place] [address] 716080- 1742 Mar, [facility] [id number] [place] [address] 267911- [address]11 Mar, [facility] [id number], [place] [address] Jul, IMMUNIZATIONS Vaccine Route Administration Date Status TORADOL (IM) 30 MG/ML (UP TO 15 MG) IM Intramuscular May 01, 2018 Administered SOCIAL HISTORY Never Assessed REASON FOR VISIT Injection--[place] PLAN OF CARE VITAL SIGNS MEDICATIONS Unknown Medications RESULTS No Results PROCEDURES Procedure Date Ordered Result Body Site TORADOL (IM) 30 MG/ML (UP TO 15 MG) May 01, 2018 THER/PROPH/DIAG INJ, SC/IM May 01, 2018 INSTRUCTIONS MEDICATIONS ADMINISTERED No Known Medications [...] the January before. 03/2018 Hospitalization History Cellulitis-[facility] 12/20/15 Hospitalization History [facility]- Abd pain 03/07/2017 Hospitalization History [facility]- Abd pain 03/14/2017 Hospitalization [facility]- No bowel movement, rash 04/13/2017 Hospitalization History [facility]- Abd pain r/t kidney surgery on 04/17/2017 Hospitalization History [facility]- Abd pain r/t kidney surgery on 04/18/2017 Hospitalization History [facility]- Lower abd pain 04/30/2017 Hospitalization History [facility]- Cannot urinate 05/30/2017 Hospitalization History [facility]- Pancreatitis Sx 06/29/2017 Hospitalization History [facility]- Stomach pain 07/22/2017 Hospitalization History [facility]- Left side pain 08/12/2017 Hospitalization History [facility]- Incision site infection 08/30/2017 Hospitalization History [facility]- Post Op Seroma/Hematoma Left Abdomen. Discharged 09/04/17- Dr Daniel 09/02/2017 Hospitalization History [facility]- Right shoulder and back pain 2017 Hospitalization History [facility]- Shoulder/Back pain 11/11/2017 Hospitalization History ED [place]- Right shoulder blade pain 12/04/2017 Hospitalization History ED [place] C-Diff 12/13/2017 Hospitalization History C diff et MRSA 12/27/2017
[2018-05-25] MEDS ORDERED: ONDANSETRON 4 MG/2 ML (SDV) Z0FRAN ONE (10:19)
[2018-05-25 10:53] LABS: BASOPHILS % (AUTO) 0 % (0-10); EOSINOPHILS # (AUTO) 0.2 10^3/uL (0.0-0.3); EOSINOPHILS % (AUTO) 2 % (0-10); HEMATOCRIT 37 % (35-52); LYMPHOCYTES # (AUTO) 2.2 X 10^3 (1.0-4.0); LYMPHOCYTES % (AUTO) 24 % (12-44); MEAN CORPUSCULAR HEMOGLOBIN 27 PG (25-34); MEAN CORPUSCULAR HGB CONC 32 G/DL (32-36); MEAN CORPUSCULAR VOLUME 83 FL (80-99); MEAN PLATELET VOLUME 9.3 FL (7.4-10.4); MONOCYTES # (AUTO) 0.4 X 10^3 (0.0-1.0); MONOCYTES % (AUTO) 4 % (0-12); NEUTROPHILS # (AUTO) 6.5 X 10^3 (1.8-7.8); NEUTROPHILS % (AUTO) 70 % (42-75); PLATELET COUNT 282 10^3/uL (130-400); RED BLOOD COUNT 4.45 10^6/uL (4.35-5.85); WHITE BLOOD COUNT 9.3 10^3/uL (4.3-11.0)
[2018-05-25 11:05] LABS: ALANINE AMINOTRANSFERASE 17 U/L (0-55); ALBUMIN 3.7 GM/DL (3.2-4.5); ALKALINE PHOSPHATASE 58 U/L (40-136); BILIRUBIN,TOTAL 0.4 MG/DL (0.1-1.0); BUN/CREATININE RATIO 14; CALCIUM 9.1 MG/DL (8.5-10.1); CARBON DIOXIDE 22 MMOL/L (21-32); CHLORIDE 105 MMOL/L (98-107); CREATININE SERUM 0.86 MG/DL (0.60-1.30); GFR ESTIMATED > 60; GLUCOSE 97 MG/DL (70-105); LIPASE 66 U/L (8-78); SODIUM 139 MMOL/L (135-145); TOTAL PROTEIN 6.9 GM/DL (6.4-8.2)
[2018-05-25 11:14] LABS: BILIRUBIN,URINE NEGATIVE (NEGATIVE); CLARITY,URINE CLEAR; COLOR,URINE YELLOW; GLUCOSE, URINE (UA) NEGATIVE (NEGATIVE); KETONES,URINE NEGATIVE (NEGATIVE); LEUKOCYTE ESTERASE ,URINE NEGATIVE (NEGATIVE); NITRITE,URINE NEGATIVE (NEGATIVE); PH,URINE 5 (5-9); PROTEIN,URINE NEGATIVE (NEGATIVE); UROBILINOGEN,URINE NORMAL (NORMAL)
[2018-05-25] MEDS ORDERED: KETOROLAC 30 MG/ML VIAL IVP ONE (11:15)
[2018-05-25 11:21] LABS: BACTERIA,URINE TRACE /HPF; WBC,URINE RARE /HPF
[2018-05-25] MEDS ORDERED: diphenhydrAMINE 50 MG/ML INJ (BENADRYL) IVP ONE (11:30)
[2018-05-25] MEDS ORDERED: PROCHLORPERAZINE 10 MG/2ML INJ (COMPAZINE) IV ONE (11:30)
[2018-05-25] MEDS ORDERED: PROM25TA14 PO (11:31)
[2018-05-25] MEDS ORDERED: HYOS0.1283 SL (11:31)
--- NOTE | 2018-05-25 11:32 | ED Abdominal Pain ---
General Chief Complaint: Abdominal/GI Problems Stated Complaint: R SIDE PAIN Nursing Triage Note: PT CO OF R SIDED ABD PAIN STARTED YESTERDAY PT STATES IS HAVING N/V SINCE. RATES PAIN6/10 Sepsis Screen: No Definite Risk Source of Information: Patient Exam Limitations: No Limitations History of Present Illness Date Seen by Provider: May 25, 2018 Time Seen by Provider: 11:28 Initial Comments To ER with right-sided abdominal pain both upper and lower. This began yesterday. Yesterday afternoon she had some nausea and vomiting. After the episode of vomiting she then developed some right-sided pain. No diarrhea. No fevers or chills. Timing/Duration: 12-24 Hours Severity/Quality: Moderate Location: RUQ, RLQ Radiation: No Radiation Associated Symptoms: No Fever/Chills; Nausea/Vomiting Allergies and Home Medications Allergies Coded Allergies: fentanyl (Verified Allergy, Unknown, 02/13/18) meperidine (Verified Allergy, Unknown, 08/20/17) penicillin G (Verified Allergy, Unknown, 08/20/17) vancomycin (Unverified Adverse Reaction, Intermediate, severe itching, ) Home Medications Cyanocobalamin 1,000 Mcg/Ml Inj, 1,000 MCG IJ MONTHLY, (Reported) Estradiol 2 Mg Tablet, 2 MG PO HS, (Reported) Fluoxetine HCl 40 Mg Capsule, 40 MG PO HS, (Reported) Hydrocodone/Acetaminophen 1 Each Tablet, 1 TAB PO Q6H Prescribed by: LINDSEY MARROQUIN on 02/13/18 1335 Hydrocortisone 30 Gm Cream.appl, TOP DAILY PRN for INFLAMMATION, (Reported) Lipase/Protease/Amylase 1 Each Tablet, PO UD, (Reported) TAKE 3 TABLETS WITH MEALS AND 2 TABLETS WITH SNACKS (HAS NOT STARTED TAKING DUE TO NOT BEING ABLE TO KEEP ANYTHING DOWN BUT DID LINER ROLL CHANGER THE SCRIPT) Ondansetron 8 Mg Tab.rapdis, 8 MG PO BID, (Reported) Promethazine HCl 25 Mg Tablet, 25 MG PO Q6H PRN for NAUSEA/VOMITING-2ND LINE, ( Reported) Ropinirole HCl 4 Mg Tablet, 4 MG PO HS, (Reported) Patient Home Medication List Home Medication List Reviewed: Yes Review of Systems Review of Systems Constitutional: see HPI EENTM: No Symptoms Reported Respiratory: No Symptoms Reported Cardiovascular: No Symptoms Reported Gastrointestinal: See HPI, Abdominal Pain; Denies Diarrhea; Nausea, Vomiting Genitourinary: No Symptoms Reported Musculoskeletal: no symptoms reported Skin: no symptoms reported Psychiatric/Neurological: No Symptoms Reported Endocrine: No Symptoms Reported Hematologic/Lymphatic: No Symptoms Reported Past Pubdehr-Rrvlkh-Msgtxr Hx Patient Social History Alcohol Use: Denies Use Recreational Drug Use: No Type Used: Cigarettes 2nd Hand Smoke Exposure: No Recent Foreign Travel: No Contact w/Someone Who Travel: No Recent Infectious Disease Expo: No Recent Hopitalizations: Yes Immunizations Up To Date Tetanus Booster (TDap): Unknown PED Vaccines UTD: No Date of Pneumonia Vaccine: May 17, 2012 Date of Influenza Vaccine: Jul 03, 2012 Seasonal Allergies Seasonal Allergies: Yes (MILD) Past Medical History Surgeries: Yes (R KNEE SCOPE X5 L X2, NASAL FX, EGD/COLONOSCOPY, COCCYX REMOVAL , HERNIA) Abdominal, Adenoidectomy, Appendectomy, Gallbladder, 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, Nephrectomy, Orthopedic, Tonsillectomy Respiratory: Yes (HASNT USED INHALER IN > 4 YRS) Asthma Currently Using CPAP: No Currently Using BIPAP: No Cardiac: No Neurological: Yes (RESTLESS LEG SYNDROME) Headaches /Migraines 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: No (HX ENDOMETRIOSIS ) 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 Sexually Transmitted Disease: No HIV/AIDS: No Genitourinary: Yes (L KIDNEY REMOVED FOR TUMOR;) UTI-Chronic Gastrointestinal: Yes (ENLARGED LIVER/FATTY LIVER) Liver Disease/Jaundice, Pancreatitis, Polyps Musculoskeletal: Yes (COCCYX-REPAIRED, MAY HAVE SIGNS OF ARTHRITIS) Chronic Back Pain Endocrine: Yes (CHRONIC PANCREATITIS) HEENT: No Loss of Vision: Denies Hearing Impairment: Denies Cancer: Yes Kidney Did You Recieve Any Treatments: Yes What Type of Treatment Did You: Surgical Intervention Psychosocial: Yes Anxiety, Depression Integumentary: No Herpes Blood Disorders: No Adverse Reaction/Blood Tranf: No (N/A) Family Medical History Cardiovascular disease 19 FATHER Completed stroke 19 FATHER Diabetes mellitus 19 FATHER Hypercholesterolemia 19 FATHER 19 MOTHER Hypertension 19 FATHER 19 MOTHER Neoplasm 19 MOTHER Psychosocial problem 19 FATHER 19 MOTHER Cancer, Diabetes, Hypertension Physical Exam Vital Signs Vital Signs - First Documented 05/25/18 09:55 Temp 96.6 Pulse 62 Resp 18 B/P (MAP) 117/102 (107) Pulse Ox 98 Capillary Refill : Less Than 3 Seconds Height/Weight/BMI Height: 5'2.00" Weight: 250lbs. 2.0oz. 113.745309tn; 45.8 BMI Method:Stated General Appearance: WD/WN, no apparent distress HEENT: PERRL/EOMI, normal ENT inspection Respiratory: normal breath sounds, no respiratory distress, no accessory muscle use Cardiovascular: regular rate, rhythm, no murmur Gastrointestinal: normal bowel sounds, soft, tenderness (right sided) Extremities: normal range of motion, non-tender Neurologic/Psychiatric: alert, normal mood/affect, oriented x 3 Skin: normal color, warm/dry Progress/Results/Core Measures Results/Orders Lab Results Laboratory Tests Test 05/25/18 10:19 05/25/18 11:09 Range/Units White Blood Count 9.3 4.3-11.0 10^3/uL Red Blood Count 4.45 4.35-5.85 10^6/uL Hemoglobin 12.0 11.5-16.0 G/DL Hematocrit 37 35-52 % Mean Corpuscular Volume 83 80-99 FL Mean Corpuscular Hemoglobin 27 25-34 PG Mean Corpuscular Hemoglobin Concent 32 32-36 G/DL Red Cell Distribution Width 14.0 10.0-14.5 % Platelet Count 282 130-400 10^3/uL Mean Platelet Volume 9.3 7.4-10.4 FL Neutrophils (%) (Auto) 70 42-75 % Lymphocytes (%) (Auto) 24 12-44 % Monocytes (%) (Auto) 4 0-12 % Eosinophils (%) (Auto) 2 0-10 % Basophils (%) (Auto) 0 0-10 % Neutrophils # (Auto) 6.5 1.8-7.8 X 10^3 Lymphocytes # (Auto) 2.2 1.0-4.0 X 10^3 Monocytes # (Auto) 0.4 0.0-1.0 X 10^3 Eosinophils # (Auto) 0.2 0.0-0.3 10^3/uL Basophils # (Auto) 0.0 0.0-0.1 10^3/uL Sodium Level 139 135-145 MMOL/L Potassium Level 4.0 3.6-5.0 MMOL/L Chloride Level 105 98-107 MMOL/L Carbon Dioxide Level 22 21-32 MMOL/L Anion Gap 12 5-14 MMOL/L Blood Urea Nitrogen 12 7-18 MG/DL Creatinine 0.86 0.60-1.30 MG/DL Estimat Glomerular Filtration Rate > 60 BUN/Creatinine Ratio 14 Glucose Level 97 70-105 MG/DL Calcium Level 9.1 8.5-10.1 MG/DL Corrected Calcium 9.3 8.5-10.1 MG/DL Total Bilirubin 0.4 0.1-1.0 MG/DL Aspartate Amino Transf (AST/SGOT) 26 5-34 U/L Alanine Aminotransferase (ALT/SGPT) 17 0-55 U/L Alkaline Phosphatase 58 40-136 U/L Total Protein 6.9 6.4-8.2 GM/DL Albumin 3.7 3.2-4.5 GM/DL Lipase 66 8-78 U/L Urine Color YELLOW Urine Clarity CLEAR Urine pH 5 5-9 Urine Specific [place] 1.010 L 1.016-1.022 Urine Protein NEGATIVE NEGATIVE Urine Glucose (UA) NEGATIVE NEGATIVE Urine Ketones NEGATIVE NEGATIVE Urine Nitrite NEGATIVE NEGATIVE Urine Bilirubin NEGATIVE NEGATIVE Urine Urobilinogen NORMAL NORMAL MG/DL Urine Leukocyte Esterase NEGATIVE NEGATIVE Urine RBC (Auto) NEGATIVE NEGATIVE Urine RBC NONE /HPF Urine WBC RARE /HPF Urine Squamous Epithelial Cells 10-25 H /HPF Urine Crystals NONE /LPF Urine Bacteria TRACE /HPF Urine Casts NONE /LPF Urine Mucus NEGATIVE /LPF Urine Culture Indicated NO My Orders Orders - GEORGES FINN APRN Cbc With Automated Diff (05/25/18 10:47) Comprehensive Metabolic Panel (05/25/18 10:47) Lipase (05/25/18 10:47) Ua Culture If Indicated (05/25/18 10:47) Iv Heplock-Insert (Order) (05/25/18 10:47) Ketorolac Injection (Toradol Injection) (05/25/18 11:15) Prochlorperazine Injection (Compazine In (05/25/18 11:30) Diphenhydramine Injection (Benadryl Inje (05/25/18 11:30) Medications Given in ED Current Medications Medications Dose Ordered Sig/Neal Route Start Time Stop Time Status Last Admin Dose Admin Ondansetron HCl 4 mg STK-MED ONCE .ROUTE 05/25/18 10:19 05/25/18 10:22 DC 05/25/18 10:23 4 MG Vital Signs/I&O 05/25/18 09:55 Temp 96.6 Pulse 62 Resp 18 B/P (MAP) 117/102 (107) Pulse Ox 98 Blood Pressure Mean: 107 Departure Communication (Admissions) Her labs are unremarkable, her vitals are stable and she's had a multitude of CT scans. I do not feel it is necessary to reimage her at this time. Impression Primary Impression: Abdominal pain Qualified Codes: R10.9 - Unspecified abdominal pain Disposition: HOME, SELF-CARE Condition: Stable Departure-Patient Inst. Decision time for Depature: 11:29 Referrals: CARMEN GIBBS MD (PCP/Family) Primary Care Physician Patient Instructions: Acute Abdomen (Belly Pain), Adult (DC) Add. Discharge Instructions: 1. Nausea medication as directed. Cramping medication as directed. Drink plenty of fluids. All discharge instructions reviewed with patient and/or family. Voiced understanding. Scripts Promethazine HCl (Promethazine Tablet) 25 Mg Tablet 25 MG PO Q6H PRN for NAUSEA/VOMITING, #10 TAB Prov: GEORGES FINN HOT DIP PLATING SUPERVISOR 05/25/18 Hyoscyamine Sulfate (Levsin-Sl) 0.125 Mg Tab.subl 0.125 MG SL Q6H PRN for CRAMPS, #10 TAB Prov: GEORGES FINN HOT DIP PLATING SUPERVISOR 05/25/18 GEORGES FINN APRN May 25, 2018 11:31
[2018-05-25 12:04] VITALS: BP 117/102
== END 2018-05-25 12:04 | disposition home or self-care (01) ==
LOC: EDUNIT# 09:51 → ER 09:52
DX: R10.11 Right upper quadrant pain (principal); R10.31 Right lower quadrant pain; J45.909 Unspecified asthma, uncomplicated; G25.81 Restless legs syndrome; G43.909 Migraine, unspecified, not intractable, without status migrainosus; F32.9 Major depressive disorder, single episode, unspecified; F41.9 Anxiety disorder, unspecified; Z86.19 Personal history of other infectious and parasitic diseases; Z85.528 Personal history of other malignant neoplasm of kidney; Z86.010 Personal history of colon polyps; Z82.49 Family history of ischemic heart disease and other diseases of the circulatory system; Z87.19 Personal history of other diseases of the digestive system; Z87.440 Personal history of urinary (tract) infections; Z88.0 Allergy status to penicillin; Z88.8 Allergy status to other drugs, medicaments and biological substances; Z79.51 Long term (current) use of inhaled steroids; Z90.710 Acquired absence of both cervix and uterus; Z90.89 Acquired absence of other organs; Z90.49 Acquired absence of other specified parts of digestive tract; Z90.5 Acquired absence of kidney; Z98.890 Other specified postprocedural states
CPT/HCPCS: 36415; 80053; 81000; 83690; 85025

== ENCOUNTER 2018-06-01 03:47 | Emergency (ER) | payer MEDICARE, MEDICAID ==
[~2018-06-01] VITALS: Ht 157.5 cm; Wt 113.5 kg
[~2018-06-01 03:47] MED LIST changes: +HYOS0.1283 SL
--- OUTSIDE RECORDS SUMMARY | 2018-06-01 03:54 | XMS REPORT | Clinical Summary ---
Author Author [facility] Organization [facility] Address Unknown Phone Unavailable Care Team Providers Care Department Mgr Name Role Phone Michael Sutton MD Unavailable [...] in the Health Information Management department at [phone] for further assistance in locating additional records.[facility] Allergies Comments Active Allergy Reactions Severity Noted [...] Place vomiting on tongue to disolve. Active [id number] Take 3 300 tablet 5 (VIOKACE) 20,880-78,300- [...] Overview: Added automatically from request for surgery [id number] Intractable vomiting with nausea 01/14/2018 Overview: Added automatically from request for surgery [id number] Left renal mass 04/10/2017 Renal mass 03/21/2017 Overview: Added automatically from request for surgery [id number] 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 06/24/2013 Overview: S/P FREDI LINO 11/27 Depression 06/24/2013 S/P cholecystectomy 06/24/2013 Overview: 2007 S/P appendectomy 06/24/2013 Overview: November 2012 Pancreatitis 10/23/2011 Encounters Care Team Description Date Type Specialty Abel Poe MD Malignant neoplasm of kidney, unspecified laterality (HCC) ( Primary Dx) 05/19/2018 Office Visit Oncology Abel Poe MD 05/19/2018 Hospital Radiology Encounter Abel Poe MD 05/19/2018 Hospital Radiology Encounter Abel Poe MD [...] Taken Vital Sign Reading 05/19/2018 1:06 PM BODY CLEANER Blood Pressure 135/79 05/19/2018 1:06 PM BODY CLEANER Pulse 81 05/19/2018 1:06 PM BODY CLEANER Temperature 36.6 C (97.9 F) 05/19/2018 1:06 PM BODY CLEANER Respiratory Rate 18 05/19/2018 1:06 PM BODY CLEANER Oxygen Saturation 99% - Inhaled Oxygen - Concentration 05/19/2018 1:06 PM BODY CLEANER Weight 121.6 kg (268 lb) 05/19/2018 1:06 PM BODY CLEANER Height 157.7 cm (5' 2.09") 05/19/2018 1:06 PM BODY CLEANER Body Mass Index 48.88 Plan of Treatment Health Maintenance Due Date Last Done Comments PHYSICAL (COMPREHENSIVE) 1991 EXAM HIV SCREENING 1999 DTAP/TDAP VACCINES (1 - 2002 Tdap) CERVICAL CANCER SCREENING 2014 INFLUENZA VACCINE 01/15/2018 Procedures Comments Procedure Name Priority Date/Time Associated Diagnosis CT ABDOMEN W CONTRAST Routine 05/19/2018 Left renal mass 11:[address] CHEST W CONTRAST Routine 05/19/2018 Left renal mass 11:52 AM BODY CLEANER POC CREATININE, RAD 05/19/2018 11:18 AM BODY CLEANER BASIC METABOLIC PANEL Routine 05/19/2018 Left renal mass 11:[address] ABD/PEL EXTERNAL Routine 03/02/2018 Diagnosis unknown IMAGING 12:00 AM CDT from Last 3 Months Results * CT ABDOMEN W CONTRAST (05/19/2018 11:52 AM BODY CLEANER) Impressions Performed At CHEST: [facility] RESULTS [...] Interface, Radiant Results - 05/19/2018 1:[address] CHEST AND ABDOMEN Clinical Indication: Female, [...] CT CHEST W CONTRAST (05/19/2018 11:52 AM BODY CLEANER) Impressions Performed At CHEST: [facility] RAD RESULTS [...] Interface, Radiant Results - 05/19/2018 1:[address] CHEST AND ABDOMEN Clinical Indication: Female, [...] on 05/19/2018 12:43 PM. Performing Organization Address City/[facility]/Zipcode Phone Number RAD RESULTS * POC CREATININE, RAD (05/19/2018 11:18 AM BODY CLEANER) Creatinine, POC 0.8 0.4 - 1.00 MG/DL [facility] Performing Organization Address City/[facility] Phone Number [facility] [address] [place] [address] * BASIC METABOLIC PANEL (05/19/2018 11:14 AM BODY CLEANER) Sodium 136 (L) 137 - 147 MMOL/L [...] for questions. Specimen Blood Performing Organization Address [facility] Phone Number [facility] [address] [place] [address] * CT ABD/PEL EXTERNAL IMAGING (03/02/2018 12:00 AM CDT) Narrative Performed At This order has been auto finalized and does not contain a result. from Last 3 Months Insurance Payer Benefit Subscriber ID Type Phone Address Plan / Group MEDICARE MEDICARE xxxxxxxxxxx Medicare PART A AND B [employer] [place] [employer] xxxxxxxxxxx Medicaid Advance Directives Patient has advance care planning documents, and code status on file. For more information, please contact: [facility] [address] [place] [address] Date Inactivated Comments Code Status Date Activated 04/11/2017 4:57 PM Full Code 04/10/2017 5:31 PM Provider has discussed Code Status No, discussion not w/Patient or Family? necessary based on Dx
--- OUTSIDE RECORDS SUMMARY | 2018-06-01 03:54 | XMS REPORT | Encounter Summary ---
Author Author [facility] Organization [facility] Address Unknown Phone Unavailable Care Team Providers Care Melting Supervisor Name Role Phone Michael Sutton MD Unavailable Unavailable Mary Whittington MD PCP Jessica Valera Unavailable Maggie Puente Unavailable Unavailable Mary Telles APRN Unavailable Bam Ritter MD Unavailable Radha Bo MARINE DESIGNER Unavailable Unavailable Jose Sanchez MD Unavailable Reason for Referral * Radiology Services (Routine) Referred By Contact Referred To Contact Status Reason Specialty Diagnoses / [place] [address] [place] [address] New Request Radiology Diagnoses Malignant neoplasm of kidney, unspecified laterality (HCC) P rocedures CT ABDOMEN W CONTRAST * Radiology Services (Routine) Referred By Contact Referred To Contact Status Reason Specialty Diagnoses / Procedures Abel Poe MD [address] [facility] [place] [address] [place] [address] New Request Radiology Diagnoses Malignant neoplasm of kidney, unspecified laterality (HCC) P rocedures CT CHEST W CONTRAST Reason for Visit * Reason Comments Heme/Onc Care Encounter Details Care Team Description [place] [address] [place] [address] [place] [address] Malignant neoplasm of kidney, unspecified laterality (HCC) ( Primary Dx) 05/19/2018 Office Visit [facility] [place] [address] [place] [address] Social History Date Tobacco Use Types Packs/Day [...] Taken Vital Sign Reading 05/19/2018 1:06 PM WIND ENERGY TECHNICIAN Blood Pressure 135/79 05/19/2018 1:06 PM WIND ENERGY TECHNICIAN Pulse 81 05/19/2018 1:06 PM WIND ENERGY TECHNICIAN Temperature 36.6 C (97.9 F) 05/19/2018 1:06 PM WIND ENERGY TECHNICIAN Respiratory Rate 18 05/19/2018 1:06 PM WIND ENERGY TECHNICIAN Oxygen Saturation 99% - Inhaled Oxygen - Concentration 05/19/2018 1:06 PM WIND ENERGY TECHNICIAN Weight 121.6 kg (268 lb) 05/19/2018 1:06 PM WIND ENERGY TECHNICIAN Height 157.7 cm (5' 2.09") 05/19/2018 1:06 PM WIND ENERGY TECHNICIAN Body Mass Index 48.88 in this encounter [...] Abel Poe MD - 05/19/2018 1:30 PM WIND ENERGY TECHNICIAN Name: Janeth Rajput : 1985 AGE: 33 [...] to three times a day as needed. moximz-kauictiw-ywruppn (VIOKACE) 20,880-78,300- 78,300 unit tab Take 3 [...] GI and her surgeon close to home. ENERGY TECHNICIAN in this encounter Plan of Treatment Order [...] Diagnosis POC CREATININE, RAD 05/19/2018 11:18 AM WIND ENERGY TECHNICIAN in this encounter Results * POC CREATININE, RAD (05/19/2018 11:18 AM WIND ENERGY TECHNICIAN) Creatinine, POC 0.8 0.4 - 1.00 MG/DL [facility] Performing Organization Address City/State/Zipcode Phone Number [facility] [address] [place] [address] in this encounter Visit Diagnoses Diagnosis Malignant neoplasm of kidney, unspecified laterality (HCC) - Primary in this encounter
--- OUTSIDE RECORDS SUMMARY | 2018-06-01 03:54 | XMS REPORT | Encounter Summary ---
Author Author [facility] Organization [facility] Address Unknown Phone Unavailable Care Team Providers Care Psychiatric Arnp Name Role Phone Michael Sutton MD Unavailable Unavailable Mary Whittington MD PCP Jessica Valera Unavailable Maggie Puente Unavailable Unavailable Mary Telles APRN Unavailable Bam Ritter MD Unavailable Radha Bo LPN Unavailable Unavailable Jose Sanchez MD Unavailable Encounter Details Care Team Description Date Type Department [place] [address] [place] [address] 05/19/2018 [facility] Encounter [place] [facility] [address] [place], [place] [id number] Social History Date Tobacco Use Types Packs/Day [...] three times a day as needed. 12/11/2017 [id number] Take 3 300 tablet 5 (VIOKACE) 20,880-78,300- [...]
--- OUTSIDE RECORDS SUMMARY | 2018-06-01 03:55 | XMS REPORT | Encounter Summary ---
Author Author [facility] Organization [facility] Address Unknown Phone Unavailable Care Team Providers Care Jacquard Loom Carpet Weaver Name Role Phone Michael Sutton MD Unavailable Unavailable Mary Whittington MD PCP Jessica Valera Unavailable Maggie Puente Unavailable Unavailable Mary Telles APRN Unavailable Bam Ritter MD Unavailable Radha Bo LPN Unavailable Unavailable Jose Sanchez MD Unavailable Reason for Visit * Reason Comments Blood in stools Encounter Details Care Team Description Date Type Department Randy Nunez MD [address] [place] [address] Blood in stools 03/27/2018 Telephone [facility] - Internal Medicine [facility] [address] [place] [address] Social History Date Tobacco Use [...]
--- OUTSIDE RECORDS SUMMARY | 2018-06-01 03:55 | XMS REPORT | Encounter Summary ---
Author Author [facility] Organization [facility] Address Unknown Phone Unavailable Care Team Providers Care Small Engine Trainer Name Role Phone Michael Sutton MD Unavailable Unavailable Mary Whittington MD PCP Jessica Valera Unavailable Maggie Puente Unavailable Unavailable Mary Telles APRN Unavailable Bam Ritter MD Unavailable Radha Bo LPN Unavailable Unavailable Jose Sanchez MD Unavailable Encounter Details Care Team Description Date Type Department 03/02/2018 Hospital [facility] [address] [place] [phone] Social History Date Tobacco Use Types Packs/Day [...] three times a day as needed. 12/11/2017 [id number] Take 3 300 tablet 5 (VIOKACE) 20,880-78,300- [...]
--- OUTSIDE RECORDS SUMMARY | 2018-06-01 03:55 | XMS REPORT | Encounter Summary ---
Author Author [facility] Organization [facility] Address Unknown Phone Unavailable Care Team Providers Care Trucker Name Role Phone Michael Sutton MD Unavailable Unavailable Mary Whittington MD PCP Jessica Valera Unavailable Maggie Puente Unavailable Unavailable Mary Telles APRN Unavailable Bam Ritter MD Unavailable Radha Bo LPN Unavailable Unavailable Jose Sanchez MD Unavailable Reason for Referral * Radiology Services (Routine) Referred By Contact Referred To Contact Status Reason Specialty Diagnoses / Procedures Abel Poe MD [address] [place] [id number] New Request Radiology Diagnoses Left renal mass P rocedures CT ABDOMEN W CONTRAST CT ABDOMEN WO/W CONTRAST * Radiology Services (Routine) Referred By Contact Referred To Contact Status Reason Specialty Diagnoses / Procedures Abel Poe MD [address] [place] [address] New Request Radiology Diagnoses Left renal mass P rocedures CT ABDOMEN W CONTRAST CT ABDOMEN WO/W CONTRAST * Radiology Services (Routine) Referred By Contact Referred To Contact Status Reason Specialty Diagnoses / Procedures Abel Poe MD [address] [place] [address] [place] [address] No Auth Needed Radiology Diagnoses Left renal mass P rocedures CT CHEST W CONTRAST CT CHEST WO/W CONTRAST CHG CT ABDOMEN W/CONTRAST MATERIAL * Radiology Services (Routine) Referred By Contact Referred To Contact Status Reason Specialty Diagnoses / [place] [address] [place] [address] [place] [address] [place] [place] [address] No Auth Needed Radiology Diagnoses Left renal mass P rocedures CT CHEST W CONTRAST CT CHEST WO/W CONTRAST CHG CT ABDOMEN W/CONTRAST MATERIAL Reason for Visit * Radiology Services (Routine) Referred By Contact Referred To Contact Status Reason Specialty Diagnoses / Procedures Abel Poe MD [address] [facility] [place] [address] No Auth Needed Radiology Diagnoses Left renal mass P rocedures CT CHEST W CONTRAST CT CHEST WO/W CONTRAST CHG CT ABDOMEN W/CONTRAST MATERIAL Encounter Details Care Team Description [place] [address] [place] [address] [phone] 05/19/2018 [facility] Encounter [facility] [address] [place], [place] [id number] Social History Date Tobacco Use Types Packs/Day [...] three times a day as needed. 12/11/2017 [id number] Take 3 300 tablet 5 (VIOKACE) 20,880-78,300- [...] Abel Poe MD - 05/19/2018 3:41 PM DISH MACHINE OPERATOR Gave results of the CT scan. EL MACHINE OPERATOR in this encounter Plan of Treatment Not on fileas of this encounter Procedures Comments Procedure Name Priority Date/Time Associated Diagnosis CT ABDOMEN W CONTRAST Routine 05/19/2018 Left renal mass 11:52 AM DISH MACHINE OPERATOR CT CHEST W CONTRAST Routine 05/19/2018 Left renal mass 11:52 AM DISH MACHINE OPERATOR BASIC METABOLIC PANEL Routine 05/19/2018 Left renal mass 11:14 AM DISH MACHINE OPERATOR in this encounter Results * CT ABDOMEN W CONTRAST (05/19/2018 11:52 AM DISH MACHINE OPERATOR) Impressions Performed At CHEST: [facility] [...] Interface, Radiant Results - 05/19/2018 1:17 PM DISH MACHINE OPERATOR CT CHEST AND ABDOMEN Clinical [...] CT CHEST W CONTRAST (05/19/2018 11:52 AM DISH MACHINE OPERATOR) Impressions Performed At CHEST: [facility] [...] Interface, Radiant Results - 05/19/2018 1:17 PM DISH MACHINE OPERATOR CT CHEST AND ABDOMEN Clinical [...] on 05/19/2018 12:43 PM. Performing Organization Address City/State/[facility] Phone Number [facility] RESULTS * BASIC METABOLIC PANEL (05/19/2018 11:14 AM DISH MACHINE OPERATOR) Sodium 136 (L) 137 - [...] for questions. Specimen Blood Performing Organization Address [facility] Phone Number [facility] [address] [place] [address] in this encounter Visit Diagnoses Diagnosis Left renal mass Unspecified disorder of kidney and ureter in this encounter Administered Medications Action Date Dose Rate Site Medication Order MAR Action 05/19/2018 11:46 AM DISH MACHINE OPERATOR 100 mL iohexol (OMNIPAQUE-350) 350 mg/mL Given injection 100 mL 100 mL, Intravenous, ONCE, 1 dose, Sat05/19/18 at 1100, NOTE: This is a HIGH ALERT Medication., 05/19/2018 11:47 AM DISH MACHINE OPERATOR 50 mL sodium chloride PF 0.9% injection 50 mL Given 50 mL, Intravenous, ONCE, 1 dose, Sat05/19/18 at 1100, Intra-procedure (IR) in this encounter
--- OUTSIDE RECORDS SUMMARY | 2018-06-01 03:55 | XMS REPORT | Encounter Summary ---
Author Author [facility] Organization [facility] Address Unknown Phone Unavailable Care Team Providers Care Medical Technologist Chief Name Role Phone Michael Sutton MD Unavailable Unavailable Mary Whittington MD PCP Jessica Valera Unavailable Maggie Puente Unavailable Unavailable Mary Telles APRN Unavailable Bam Ritter MD Unavailable Radha Bo LPN Unavailable Unavailable Jose Sanchez MD Unavailable Encounter Details Care Team Description Date Type Department Abel Poe MD [address] [place] [address] Left renal mass (Primary Dx) 04/29/2018 Orders Only [facility] [address] [phone] Social History Date Tobacco Use Types Packs/Day [...] * BASIC METABOLIC PANEL (05/19/2018 11:14 AM CLAY MACHINE OPERATOR) Sodium 136 (L) 137 - [...] Blood Performing Organization Address City/State/Zipcode Phone Number [facility] [address] [place] [address] in this encounter Visit Diagnoses Diagnosis Left renal mass - Primary Unspecified disorder of kidney and ureter in this encounter
--- OUTSIDE RECORDS SUMMARY | 2018-06-01 03:55 | XMS REPORT | Encounter Summary ---
Author Author [facility] Organization [facility] Address Unknown Phone Unavailable Care Team Providers Care Canary Raiser Name Role Phone Michael Sutton MD Unavailable Unavailable Mary Whittington MD PCP Jessica Valera Unavailable Maggie Puente Unavailable Unavailable Mary Telles RESIN COATER Unavailable Bam Ritter MD Unavailable Radha Bo LPN Unavailable Unavailable Jose Sanchez MD Unavailable Reason for Visit * Reason Comments Nausea Vomiting Abdominal pain Abdominal Distention Diarrhea Constipation Blood in stools Encounter Details Care Team Description Date Type Department Randy Nunez MD [address] [facility] [address] [place] [address] Vomiting, intractability of vomiting not specified, presence of nausea not specified, unspecified vomiting type (Primary Dx); Chronic pancreatitis, unspecified pancreatitis type (HCC) 04/09/2018 Office Visit [facility] [address] [place] [address] Social History Date Tobacco Use [...] 10:30 AM CDT Call my nurse at [phone] if you have any troubles or questions. Take 3 Viokase with each meal. Make sure you call your oncologist in [place] to let them know about the new [...] at [facility] in [place], [place]. She was recently diagnosed with Clostridium [...] to three times a day as needed. [id number] (VIOKACE) 20,880-78,300- 78,300 unit tab Take 3 [...]
--- OUTSIDE RECORDS SUMMARY | 2018-06-01 03:56 | XMS REPORT ---
Author Author SAI CARMEN [facility] Address [address] [place] [address] Care Team Providers Care Picking Crew Supervisor Name Role Phone SAICORTNEY KOENIGHANY Unavailable PROBLEMS Type Condition ICD9-CM Code BNB88-TE Code Onset Dates Condition Status SNOMED Code Problem Atelectasis J98.11 Active 00378000 Problem Restless leg syndrome G25.81 Active 72114917 Problem Trichotillomania F63.3 Active 51604392 Problem Primary osteoarthritis of right knee M17.11 Active [id number] Problem Intestinal malabsorption, unspecified K90.9 Active 70020159 Problem Chronic post-traumatic stress disorder (PTSD) F43.12 Active 004982793 Problem Generalized social phobia F40.11 Active 73365079 Problem Chronic fatigue R53.82 Active 74214917 Problem Moderate episode of recurrent major depressive disorder F33.1 Active 863180495 Problem Chronic tension-type headache, intractable G44.221 Active 304018214 Problem Morbid (severe) obesity due to excess calories E66.01 Active 127343396 Problem Nodule of left lung R91.1 Active 557354401 Problem History of renal cell carcinoma Z85.528 Active 118888655 Problem FH: polycystic ovary Z84.2 Active 501458675 Problem Chronic pancreatitis K86.1 Active 540597204 Problem Hyperlipidemia, mixed E78.2 Active 505158332 Problem Asthma J45.909 Active 778783637 Problem Hirsuties L68.0 Active 479218167 Problem Polydipsia R63.1 Active 61810278 ALLERGIES No Information ENCOUNTERS Encounter Location Date Diagnosis [facility] [id number] [address] Jun, [facility] [address] [facility] [id number] [address] 7[address] May, [facility] [id number] [place] [address] 49327- 6915 Apr, Generalized social phobia F40.11 ; Trichotillomania F63.3 ; Chronic post-traumatic stress disorder (PTSD) F43.12 and BMI 45.0-49.9, adult Z68.42 [place] [id number] [place] [address] 37344- 5202 Apr, [place] [address] 15256- 9454 Apr, Chronic tension-type headache, intractable G44.221 [place] [address] 881721- 2075 Apr, [facility] [address] [address] -[address] Mar, [facility] [address] 40429 -5935 Mar, BMI 45.0-49.9, adult Z68.42 and Pimples R23.8 [place] [address] 94244- 5289 Mar, [place] [id number] [place] [address] 28416- 8139 Mar, [place] [id number] [place] [address] 31709- 1059 Mar, Decreased urination R34 ; Chronic fatigue R53.82 ; Peripheral edema R60.9 ; Diarrhea, unspecified type R19.7 ; Non-intractable vomiting with nausea, unspecified vomiting type R11.2 ; BMI 45.0-49.9, adult Z68.42 and Chronic post-traumatic stress disorder (PTSD) F43.12 [place] [id number] [place] [address] 98575- 6805 Mar, Intestinal malabsorption, unspecified K90.9 ; Diarrhea, unspecified R19.7 ; Urinary urgency R39.15 ; Rectal bleeding K62.5 and Decreased urine output R34 [facility] [id number] [place] [address] 51970- 1943 Mar, Decreased urine output R34 [facility] [id number] [place] [address] 55777- 2793 Mar, Rectal bleeding K62.5 [facility] [id number] [place] [address] 70118- 9046 11 Mar, 2018 Rectal bleeding K62.5 [facility] [id number] [place] [address] 34110- 7876 Mar, Urinary urgency R39.15 [facility] [id number] [place] [address] 17332- 6006 Mar, Urinary urgency R39.15 [facility] [id number] [place] [address] 07561- 0869 Mar, Primary osteoarthritis of right knee M17.11 and BMI 45.0- 49.9, adult Z68.42 [facility] [id number] [place] [address] 59027- 4658 Mar, [facility] [id number] [place] [address] 14827- 3593 Feb, Left upper arm pain M79.622 [facility] [id number] [place] [address] 17457- 4255 Feb, [facility] [id number] [place] [address] 92614- 5284 Jan, Acute pain of right knee M25.561 ; Right upper quadrant abdominal pain R10.11 and BMI 45.0-49.9, adult Z68.42 [facility] [id number] [place] [address] 73238- 4467 Jan, [facility] [id number] [place] [address] 16929- 3050 Jan, [facility] [id number] [place] [address] 71030- 3127 Dec, [facility] [address] [address]- 1467 Dec, Intestinal malabsorption, unspecified K90.9 and Diarrhea, unspecified R19.7 [facility] [address] [address]- 8460 Dec, [facility] [id number] [place] [address] 51690- 8686 Dec, Strep throat J02.0 ; Intestinal malabsorption, unspecified K90.9 ; Diarrhea, unspecified R19.7 ; Postoperative seroma involving digestive system after non-digestive system procedure K91.873 ; Hyperlipidemia, mixed E78.2 and BMI 45.0-49.9, adult Z68.42 [facility] [address] [address]- 2335 Dec, [facility] [id number] [place] [address] 95625- 0902 Dec, Nausea R11.0 [facility] [id number] [place] [address] 53065- 5022 Dec, [facility] [address] [address] Dec, Sore throat J02.9 ; Strep throat J02.0 and BMI 45.0-49.9, adult Z68.42 [facility] [address] [address]- 7632 Dec, [facility] [address] [address]- 5342 Dec, [facility] [id number] [place] [address] 22108- 2781 Dec, [facility] [address] [address]- 0421 Dec, [facility] [id number] [address]- 2763 Dec, [facility] [id number] [place] [address] 10444- 1238 Dec, [facility] [id number] [place] [address] 31560- 9932 Dec, [facility] [id number] [place] [address] 47468- 8932 Dec, [facility] [id number] [place] [address] 09732- 5868 Dec, Clostridium difficile colitis A04.72 ; Intractable vomiting with nausea, unspecified vomiting type R11.2 and BMI 45.0-49.9, adult Z68.42 [facility] [id number] [place] [address] 03103- 8338 Dec, [facility] [id number] [place] [address] 33985- 2465 Nov, [facility] [id number] [place] [address] 36431- 2972 Nov, [facility] [id number] [place] [address] 68069- 0499 Nov, [facility] [id number] [place] [address] 48047- 4997 Nov, [facility] [address] [address]67 Nov, [facility] [id number] [place] [address] 85452- 2398 Nov, Hyperlipidemia, mixed E78.2 [facility] [id number] [place] [address] 78392 -9856 Nov, Acute suppurative otitis media of right ear without spontaneous rupture of tympanic membrane, recurrence not specified H66.001 and BMI 45.0-49.9, adult Z68.42 [facility] [id number] [address]- 7094 Nov, Hyperlipidemia, mixed E78.2 [place] [id number] [place] [address] 58420- 7346 Nov, [place] [id number] [place] [address] 09068- 5471 Nov, [place] [id number] [place] [address] 80005- 1875 Nov, Nodule of left lung R91.1 [place] [id number] [place] [address] 76129- 2406 04 Nov, 2017 Medicare annual wellness visit, [...] and Encounter for immunization Z23 [place] [id number] [place] [address] 57609- 5519 October, [place] [id number] [place] [address] 00444- 1816 October, Nodule of left lung R91.1 [place] [id number] [place] [address] 20490- 8792 October, Nodule of left lung R91.1 [place] [id number] [place] [address] 99769- 1532 October, Recurrent major depressive disorder, in partial remission F33.41 ; Restless leg syndrome G25.81 ; Generalized social phobia F40.11 ; Chronic post-traumatic stress disorder (PTSD) F43.12 ; BMI 45.0-49.9, adult Z68.42 and Trichotillomania F63.3 [facility] [id number] [place] [address] 72148- 4405 October, [facility] [id number] [place] [address] 62569- 6672 Sep, Chronic fatigue R53.82 and BMI 45.0-49.9, adult Z68.42 [place] [address] 32083- 1511 Aug, [facility] [address] 39196- 8989 Jul, Restless leg syndrome G25.81 and B12 deficiency E53.8 [place] [address] 39891- 7997 Jul, [place] [id number] [place] [address] 61154- 9460 Jul, [facility] [id number] [place] [address] 06911- 9817 Jun, [facility] [id number] [place] [address] 16633- 5040 Jun, Fatigue, unspecified type R53.83 ; History of renal cell carcinoma Z85.528 ; Chronic pancreatitis K86.1 ; Restless leg syndrome G25.81 ; Dark urine R82.99 and BMI 45.0-49.9, adult Z68.42 [place] [id number] [place] [address] 12460- 3015 Jun, [facility] [id number] [place] [address] 60570- 2800 Jun, [facility] [id number] [place] [address] 89240- 1138 Jun, [facility] [id number] [place] [address] 62575- 5294 Jun, [place] [id number] [place] [address] 95739- 0442 May, Chronic post-traumatic stress disorder (PTSD) F43.12 ; Moderate episode of recurrent major depressive disorder F33.1 ; Trichotillomania F63.3 and Generalized social phobia F40.11 [address] [address] [address]- 2851 May, [place] [id number] [place] [address] 59618- 2100 May, Chronic post-traumatic stress disorder (PTSD) F43.12 ; Moderate episode of recurrent major depressive disorder F33.1 ; Trichotillomania F63.3 and Generalized social phobia F40.11 [place] [id number] [place] [address] 35482- 7457 May, Hyperlipidemia, mixed E78.2 ; Morbid (severe) obesity due to excess calories E66.01 ; Chronic post-traumatic stress disorder (PTSD) F43.12 ; Moderate episode of recurrent major depressive disorder F33.1 ; Trichotillomania F63.3 and Generalized social phobia F40.11 [place] [address] [address]- 4725 Apr, [place] [id number] [place] [address] 96546- 7332 Apr, Hyperlipidemia, mixed E78.2 ; Morbid (severe) obesity due to excess calories E66.01 ; Chronic post-traumatic stress disorder (PTSD) F43.12 ; Moderate episode of recurrent major depressive disorder F33.1 ; Trichotillomania F63.3 and Generalized social phobia F40.11 [place] [id number] [address]- 4686 Apr, Trichotillomania F63.3 ; Generalized social phobia F40.11 ; Chronic post-traumatic stress disorder (PTSD) F43.12 and Moderate episode of recurrent major depressive disorder F33.1 [place] [id number] [place] [address] 23696- 9321 Apr, [facility] [id number] [place] [address] 58283- 2793 Apr, [facility] [id number] [place] [address] 56632- 1196 Mar, Moderate episode of recurrent major depressive disorder F33.1 ; Trichotillomania F63.3 ; Chronic post-traumatic stress disorder (PTSD) F43.12 ; Generalized social phobia F40.11 and Restless leg syndrome G25.81 [facility] [id number] [place] [address] 69160- 6101 Mar, [place] [address] 89924- 6602 Mar, [place] [id number] [place] [address] 67696- 9967 Feb, Left kidney mass N28.[address] 10018- 0233 Jan, [facility] [address] 11985- 5003 Dec, Polydipsia R63.1 ; Chronic pancreatitis K86.1 and Fatigue, unspecified type R53.83 [id number] [place] [address] 41049- 5316 Nov, [facility] [id number] [place] [address] 41854- 6998 Nov, [place] [id number] [place] [address] 83958- 5822 Nov, Headache around the eyes R51 [address] 24916- 6042 Nov, [place] [id number] [place] [address] 81630- 7583 October, STD exposure Z20.[address] 73548- 4902 October, STD exposure Z20.2 [place] [id number] [place] [address] 71959- 6823 October, Chronic post-traumatic stress disorder (PTSD) F43.12 ; Generalized social phobia F40.11 ; Trichotillomania F63.3 and Restless leg syndrome G25.81 [place] [address] 01693- 8457 October, [place] [id number] [place] [address] 64489- 3238 Sep, [place] [address] 32362- 6576 Aug, [place] [address] 76915- 9249 Aug, [place] [address] 77247- 9108 Aug, Neck mass R22.1 [place] [id number] [place] [address] 22330- 8945 Aug, Atelectasis J98.11 [place] [id number] [place] [address] 21529- 2306 28 Jul, 2016 Hyperlipidemia, mixed E78.2 ; Atypical pneumonia J18.9 and Neck mass R22.1 [place] [id number] [place] [address] 31860- 8384 15 Jul, 2016 Hemoptysis R04.2 [place] [id number] [place] [address] 83535- 5123 08 Jul, 2016 Acute non-recurrent pansinusitis J01.40 ; Hemoptysis R04.2 ; Polydipsia R63.1 and Malaise R53.81 [facility] [id number] [place] [address] 75988 -1037 May, Other viral agents as the cause of diseases classified elsewhere B97.89 and Acute upper respiratory infection, unspecified J06.9 [facility] [place] [id number] [place] [address] 98850 -8796 Mar, Nausea R11.0 [facility] [place] [id number] [place] [address] 34653 -7931 28 Dec, 2015 Hives L50.9 [place] [id number] [place] [address] 60644- 0265 14 Dec, 2015 [facility] [place] [id number] [place] [address] 56967 -3462 Dec, Cutaneous abscess of limb, unspecified L02.419 ; Cellulitis of unspecified part of limb L03.119 ; Encounter for incision and drainage procedure Z01.89 and Encounter for recheck of abscess following incision and drainage Z09 [facility] [id number] [place] [address] 03843 -7198 Dec, Abscess of leg, right L02.415 [place] [id number] [place] [address] 01281- 5511 Dec, Cellulitis of unspecified part of limb L03.119 and Cutaneous abscess of limb, unspecified L02.419 [place] [id number] [place] [address] 25098- 5079 Dec, [place] [id number] [place] [address] 42665- 9014 Dec, [facility] [place] [id number] [place] [address] 26737 -5539 Aug, [place] [id number] [place] [address] 95397- 6264 Aug, [facility] [place] [id number] [place] [address] 13407 -0707 Jul, Pain in unspecified wrist M25.539 and Back pain, thoracic M54.6 [facility] [id number] [place] [address] 32436 -5815 13 Jun, 2015 Strain of right wrist, initial encounter S66.911A [place] [id number] [place] [address] 13196- 9111 11 Jun, 2015 Chronic pancreatitis, unspecified pancreatitis type K86.1 ; Hirsuties L68.0 ; Morbid (severe) obesity due to excess calories E66.01 ; Chronic pancreatitis K86.1 and Asthma J45.909 [place] [id number] [place] [address] 22677- 7238 May, [place] [address] 25051- 8045 May, Hyperlipidemia, mixed E78.2 and Muscle spasm of back M62.830 [place] [id number] [place] [address] 32914- 5220 Apr, [place] [id number] [place] [address] 97636- 7408 Apr, Torticollis M43.6 [place] [id number] [place] [address] 80789- 9640 Apr, Right-sided thoracic back pain M54.6 [place] [id number] [place] [address] 82091- 2003 Mar, Rash R21 [place] [id number] [place] [address] 77858- 9478 Mar, [place] [id number] [place] [address] 60014- 6732 Jan, [place] [id number] [place] [address] 20680- 9897 Dec, [place] [id number] [place] [address] 06090- 7557 Dec, Urinary frequency 788.41 and Nocturia more than twice per night 788.43 [place] [id number] [address]- 0173 Nov, [facility] [address] [address]- 1061 Nov, [facility] [address] [address]- 4239 Nov, Abdominal pain 789.00 [facility] [id number] [place] [address] 10503- 5264 October, TDAP DX V06.1 [facility] [address] [address]- 6196 October, [facility] [id number] [place] [address] 37966- 9110 October, Disturbance of skin sensation 782.0 ; Wrist pain, right 719.43 ; Hyperlipidemia 272.4 and Skin lesion of face 709.9 [facility] [address] [address]- 3315 Sep, [facility] [address] [address]- 1184 Sep, [facility] [address] [address]- 5559 Aug, [facility] [address] [address]- 4780 Aug, [facility] [address] [address]- 2051 Aug, [facility] [address] [address]- 6728 Aug, [facility] [address] [address]- 4095 Aug, [facility] [address] [address]- 5325 Aug, [facility] [address] [address]- 8119 14 Aug, 2014 [facility] [place] [facility] [address] [id number] [place] [address]- 6645 14 Aug, 2014 [facility] [place] [facility] [address] [id number] [place] [address]- 1105 Aug, [facility] [place] [facility] [address] [id number] [place] [address]- 4358 Aug, [facility] [place] [facility] [address] [id number] [place] [address]- 0753 Aug, [facility] [place] [facility] [address] [id number] [place] [address]- 8264 Aug, [facility] [place] [facility] [address] [id number] [place] [address]- 0727 Aug, [facility] [place] [facility] [address] [facility] [id number] [place] [address]- 1867 Aug, [facility] [place] [facility] [address] [id number] [place] [address]- 8726 Jul, [facility] [place] [facility] [address] [id number] [place] [address]- 1104 Jul, 2014 [facility] [place] [facility] [address] [facility] [id number] [place] [address]- 4330 Jul, [facility] [place] [facility] [address] [facility] [id number] [place] [address] Jul, 2014 [facility] [place] [facility] [address] [facility] [id number] [place] [address] Jul, [facility] [place] [facility] [address] [id number] [place] [address] Jul, [facility] [place] [facility] [address] [facility] [id number] [place] [id number] Jun, [facility] [place] [facility] [address] [id number] [place] [address] Jun, [facility] [place] [facility] [address] [id number] [place] [address] Jun, [facility] [place] [facility] [address] [id number] [place] [address] Jun, [facility] [place] [facility] [address] [id number] [place] [address] Jun, [facility] [place] [facility] [address] [id number] [place] [address] Jun, [facility] [address] [id number] [place] [address] Jun, [facility] [place] [facility] [address] [id number] [place] [address] Jun, [facility] [address] [id number] [place] [address] May, [facility] [address] [id number] [place] [address] May, [facility] [place] [facility] [address] [id number] [place] [address] May, [facility] [place] [facility] [address] [id number] [place] [address] May, [facility] [place] [facility] [address] [id number] [place] [address] 15 May, 2014 [facility] [place] [facility] [address] [id number] [place] [address] 15 May, 2014 [facility] [place] [facility] [address] [id number] [place] [address] May, [facility] [place] [facility] [address] [id number] [place] [address] May, [facility] [place] [facility] [address] [id number] [place] [address] 09 May, 2014 [facility] [place] [facility] [address] [id number] [place] [address] May, [facility] [place] [facility] [address] [id number] [place] [address] May, [facility] [place] [facility] [address] [id number] [place] [address] May, [facility] [place] [facility] [address] [id number] [place] [address] Apr, [facility] [place] [facility] [address] [id number] [place] [address] Apr, [facility] [place] [facility] [address] [id number] [place] [address] Apr, [facility] [place] [facility] [address] [id number] [place] [address] 1478 Apr, [facility] [place] [facility] [address] [id number] [place] [address] 3605 Apr, [facility] [place] [facility] [address] [id number] [place] [address] 6801 Apr, [facility] [place] [facility] [address] [id number] [place] [address] 8260 Apr, [facility] [place] [facility] [address] [id number] [place] [address] 0148 Apr, [facility] [place] [facility] [address] [id number] [place] [address] 2495 Apr, [facility] [place] [facility] [address] [id number] [place] [address] 0970 Apr, [facility] [place] [facility] [address] [id number] [place] [address] 3030 Apr, [facility] [place] [facility] [address] [id number] [place] [address] 5466 Apr, [facility] [place] [facility] [address] [id number] [place] [address] 14 Mar, 2014 [facility] [place] [facility] [address] [id number] [place] [address] 3329 14 Mar, 2014 [facility] [place] [facility] [address] [id number] [place] [address]- 3595 Mar, [facility] [place] [facility] [address] [id number] [place] [address]- 7733 Mar, [facility] [place] [facility] [address] [id number] [place] [address]- 2668 10 Feb, 2013 [facility] [place] [facility] [address] [id number] [place] [address]- 2612 10 Feb, 2013 [facility] [place] [facility] [address] [id number] [place] [address]- 5476 05 Feb, 2013 [facility] [place] [facility] [address] [id number] [place] [address]- 9503 Feb, 2013 [facility] [place] [facility] [address] [id number] [place] [address]- 1809 Feb, 2013 [facility] [place] [facility] [address] [id number] [place] [address]- 5746 Feb, [facility] [place] [facility] [address] [id number] [place] [address] 7632 Jan, [facility] [place] [facility] [address] [id number] [place] [address]- 9453 Jan, [facility] [place] [facility] [address] [id number] [place] [address]- 4269 Jan, [facility] [place] [facility] [address] [id number] [place] [address]- 0167 Jan, [facility] [place] [facility] [address] [id number] [place] [address]- 1715 Jan, [facility] [place] [facility] [address] [id number] [place] [address]- 2923 Jan, [facility] [place] [facility] [address] [id number] [place] [address]- 1346 Jan, [facility] [place] [facility] [address] [id number] [place] [address]- 6881 Jan, [facility] [place] [facility] [address] [id number] [place] [address]- 8016 Jan, [facility] [place] [facility] [address] [id number] [place] [address]- 1785 Jan, [facility] [place] [facility] [address] [id number] [place] [address]- 3681 Jan, [facility] [place] [facility] [address] [id number] [place] [address]- 9114 Jan, [facility] [place] [facility] [address] [id number] [place] [address]- 2758 Jan, [facility] [place] [facility] [address] [id number] [place] [address]- 2526 Jan, [facility] [place] [facility] [address] [id number] [place] [address]- 0005 Dec, [facility] [place] [facility] [address] [id number] [place] [address]- 5944 Dec, [facility] [place] [facility] [address] [id number] [place] [address]- 5811 Dec, [facility] [place] [facility] [address] [id number] [place] [address]- 8909 Dec, [facility] [place] [facility] [address] [id number] [place] [address]- 7012 Nov, [facility] [place] [facility] [address] [id number] [place] [address]- 3643 Nov, [facility] [place] [facility] [address] [id number] [place] [address]- 0808 Nov, [facility] [place] [facility] [address] [id number] [place] [address]- 4056 Nov, [facility] [place] [facility] [address] [id number] [place] [address]- 6606 Nov, [facility] [address] [id number] [place] [address]- 7194 October, [facility] [place] [facility] [address] [id number] [place] [address]- 7410 October, [facility] [address] [id number] [place] [address]- 7549 October, [facility] [place] [facility] [address] [id number] [place] [address]- 5072 October, [facility] [address] [id number] [place] [address]- 7029 October, [facility] [address] [id number] [place] [address]- 6562 October, [facility] [address] [id number] [place] [address]- 3415 October, [facility] [address] [id number] [place] [address]- 4878 October, [facility] [address] [id number] [place] [address]- 7954 October, [facility] [address] [id number] [place] [address]- 7697 October, [facility] [address] [id number] [place] [address]- 1164 October, [facility] [place] [facility] [address] [id number] [place] [address]- 4036 October, [facility] [place] [facility] [address] [id number] [place] [address]- 6172 October, [facility] [place] [facility] [address] [id number] [place] [address]- 3032 October, [facility] [place] [facility] [address] [id number] [place] [address] Sep, [facility] [place] [facility] [address] [id number] [place] [address]- 9643 17 Sep, 2013 [facility] [place] [facility] [address] [id number] [place] [address]- 8399 Sep, [facility] [place] [facility] [address] [id number] [place] [address]- 7781 Sep, [facility] [place] [facility] [address] [id number] [place] [address]- 2542 Sep, [facility] [place] [facility] [address] [id number] [place] [address]- 8432 Sep, [facility] [place] [facility] [address] [id number] [place] [address]- 9057 Sep, [facility] [place] [facility] [address] [id number] [place] [address]- 6870 Sep, [facility] [place] [facility] [address] [id number] [place] [address]- 5513 Sep, [facility] [place] [facility] [address] [id number] [place] [address]- 7959 Sep, [facility] [place] [facility] [address] [id number] [place] [address]- 6150 Sep, [facility] [place] [facility] [address] [id number] [place] [address]- 8170 Sep, [facility] [place] [facility] [address] [id number] [place] [address]- 0672 Sep, [facility] [place] [facility] [address] [id number] [place] [address]- 9269 Sep, [facility] [place] [facility] [address] [id number] [place] [address]- 2755 Sep, [facility] [place] [facility] [address] [id number] [place] [address]- 1791 Aug, [facility] [place] [facility] [address] [id number] [place] [address]- 7917 Aug, [facility] [place] [facility] [address] [id number] [place] [address]- 2270 Aug, [facility] [place] [facility] [address] [id number] [place] [address]- 0183 Aug, [facility] [place] [facility] [address] [id number] [place] [address]- 8621 Jul, [facility] [place] [facility] [address] [id number] [place] [address]- 9136 Jul, [facility] [place] [facility] [address] [id number] [place] [address]- 2522 Jul, [facility] [place] [facility] [address] [id number] [place] [address]- 0407 Jul, [facility] [place] [facility] [address] [id number] [place] [address]- 6211 Jun, [facility] [place] [facility] [address] [id number] [place] [address]- 8472 Jun, [facility] [place] [facility] [address] [id number] [place] [address]- 1996 Jun, [facility] [place] [facility] [address] [id number] [place] [address]- 6419 Jun, [facility] [place] [facility] [address] [id number] [place] [address]- 4570 Jun, [facility] [place] [facility] [address] [id number] [place] [address]- 3115 Jun, [facility] [place] [facility] [address] [id number] [place] [address]- 0169 Jun, [facility] [place] [facility] [address] [id number] [place] [address]- 7804 Jun, [facility] [place] [facility] [address] [id number] [place] [address]- 0598 May, [facility] [place] [facility] [address] [id number] [place] [address]- 2630 20 May, 2012 [facility] [address] [id number] [place] [address] 18 May, 2013 [facility] [address] [id number] [place]16 18 May, 2013 [facility] [address] [id number] [place] [address]- 9279 17 May, 2013 [facility] [address] [id number] [place] [address] 17 May, 2013 [facility] [address] [id number] [place] [address]174 17 May, 2013 [facility] [address] [id number] [place] [address] 17 May, 2013 [facility] [address] [id number] [place] [address]- 5666 16 May, 2013 [facility] [address] [id number] [place] [address]- 4065 16 May, 2013 [facility] [address] [id number] [place] [address]- 6357 14 May, 2013 [facility] [address] [id number] [place] [address]- 8331 14 May, 2013 [facility] [address] [id number] [place] [address]- 9886 13 May, 2013 [facility] [address] [id number] [place] [address]- 2420 13 May, 2013 [facility] [address] [id number] [place]041 12 May, 2013 [facility] [address] [id number] [place] [address]- 1191 12 May, 2013 [facility] [address] [id number] [place] [address] May, [facility] [address] [id number] [place] [address]- 9485 May, [facility] [place] [facility] [address] [id number] [place] [address]- 3199 Apr, [facility] [place] [facility] [address] [id number] [place] [address]- 4696 Apr, [facility] [place] [facility] [address] [id number] [place] [address]- 5036 Apr, [facility] [address] [id number] [place] [address]- 8360 Apr, [facility] [place] [facility] [address] [id number] [place] [address]- 4216 Aug, [facility] [place] [facility] [address] [id number] [place] [address]- 9556 Aug, [facility] [address] [id number] [place] [address]- 9135 Aug, [facility] [place] [facility] [address] [id number] [place] [address]- 8142 Aug, [facility] [place] [facility] [address] [id number] [place] [address]- 0243 Jul, [facility] [place] [facility] [address] [id number] [place] [address]- 2896 Jun, [facility] [place] [facility] [address] [id number] [place] [address]- 0256 Jun, [facility] [place] [facility] [address] [id number] [place] [address]- 8432 Jun, [facility] [place] [facility] [address] [id number] [place] [address]- 4986 Jun, [facility] [place] [facility] [address] [id number] [place] [address]- 0326 17 May, 2012 [facility] [place] [facility] [address] [id number] [place] [address]- 7981 05 May, 2012 [facility] [place] [facility] [address] [id number] [place] [address]- 6971 May, [facility] [place] [facility] [address] [facility] [id number] [place] 7348 May, [facility] [place] [facility] [id number] [address]878 May, [facility] [place] [facility] [address] [facility] [id number] [place] [address]- 5343 May, [facility] [place] [facility] [id number] [place] [address], [place] [address]- 1730 May, [facility] [place] [facility] [address] [facility] [id number] [place] [address]- 8340 Apr, [facility] [place] [facility] [id number] [place] [address]- 0980 Apr, [facility] [place] [facility] [address] [facility] [id number] [place] [address]- 6774 Apr, [facility] [place] [facility] [id number] [place] [address]- 4207 Apr, [facility] [place] [facility] [id number] [place] [address]- 2534 Apr, [facility] [place] [facility] [id number] [place] [address]- 2368 Apr, [facility] [place] [facility] [address] [facility] [id number] [place] [address]- 4477 Apr, [facility] [place] [facility] [address] [id number] [place] [address]- 6973 Mar, [facility] [place] [facility] [address] [facility] [id number] [place] [address]- 7937 Mar, [facility] [place] [facility] [id number] [place] [address]- 3870 Mar, [facility] [place] [facility] [address] [id number] [place] [address]- 5249 Mar, 2011 [facility] [place] [facility] [address] [id number] [place] [address]- 0707 Mar, [facility] [place] [facility] [address] [id number] [place] [address]- 2686 Mar, [facility] [place] [facility] [address] [id number] [place] [address]- 0288 Mar, [facility] [place] [facility] [address] [id number] [place] [address]- 3673 Mar, [facility] [place] [facility] [address] [id number] [place] [address]- 6604 Mar, [facility] [place] [facility] [address] [id number] [place] [address]- 2004 Mar, [facility] [place] [facility] [address] [id number] [place] [address]- 2075 Mar, [facility] [place] [facility] [address] [id number] [place] [address]- 6241 Mar, [facility] [place] [facility] [address] [id number] [place] [address]- 1786 Feb, [facility] [place] [facility] [address] [id number] [place] [address]- 3340 Jan, [facility] [place] [facility] [address] [id number] [place] [address]- 9714 Jan, [facility] [place] [facility] [address] [id number] [place] [address]- 8868 Jan, [facility] [place] [facility] [address] [id number] [place] [address]- 1716 Jan, [facility] [place] [facility] [address] [id number] [place] [address]- 5726 Jan, [facility] [place] [facility] [address] [id number] [place] [address]- 0928 Dec, [facility] [address] [id number] [place] [address]- 9708 Dec, [facility] [place] [facility] [address] [id number] [place] [address]- 3292 Nov, [facility] [place] [facility] [address] [id number] [place]192 Nov, [facility] [place] [facility] [address] [id number] [place] [address]- 6148 Nov, [facility] [place] [facility] [address] [id number] [place] [address]- 0538 October, [facility] [place] [facility] [address] [id number] [place] [address]- 6848 October, [facility] [place] [facility] [address] [id number] [place] [address]- 9298 October, [facility] [place] [facility] [address] [id number] [place] [address]- 0402 October, [facility] [place] [facility] [address] [id number] [place] [address]- 6641 October, [facility] [place] [facility] [address] [id number] [place] [address]- 8359 October, [facility] [place] [facility] [address] [id number] [place] [address]- 6028 October, [facility] [place] [facility] [address] [id number] [place] [address]- 9890 Sep, [facility] [place] [facility] [address] [id number] [place] [address]- 2479 Sep, [facility] [place] [facility] [address] [id number] [place] [address]- 5643 Sep, [facility] [place] [facility] [address] [id number] [place] [address]- 2129 Sep, [facility] [place] [facility] [address] [id number] [place] [address]- 3169 24 Sep, 2011 [facility] [place] [facility] [address] [id number] [place] [address]- 3136 19 Sep, 2011 [facility] [place] [facility] [address] [id number] [place] [address]- 7826 17 Sep, 2011 [facility] [place] [facility] [address] [id number] [place] [address]- 1706 16 Sep, 2011 [facility] [place] [facility] [address] [id number] [place] [address]- 4406 16 Sep, 2011 [facility] [place] [facility] [address] [id number] [place] [address]- 3522 14 Sep, 2011 [facility] [place] [facility] [address] [id number] [place] [address]- 2037 13 Sep, 2011 [facility] [place] [facility] [address] [id number] [place] [address]- 8987 10 Sep, 2011 [facility] [place] [facility] [address] [id number] [place] [address]- 9390 09 Sep, 2011 [facility] [place] [facility] [address] [id number] [place] [address]- 1909 27 Aug, 2011 [facility] [place] [facility] [address] [id number] [place] [address]- 2717 12 Aug, 2011 [facility] [place] [facility] [address] [id number] [place] [address]- 0816 08 Aug, 2011 [facility] [place] [facility] [address] [id number] [place] [address]- 0855 06 Aug, 2011 [facility] [place] [facility] [address] [id number] [place] [address]- 8687 28 Jul, 2011 [facility] [place] [facility] [address] [id number] [place] [address]- 2135 22 Jul, 2011 [facility] [place] [facility] [address] [id number] [place] [address]- 0364 16 Jul, 2011 [facility] [address] [id number] [place] [address]- 0028 15 Jul, 2011 [facility] [address] [id number] [place] [address]- 9456 14 Jul, 2011 [facility] [address] [id number] [place] [address] 10 Jul, 2011 [facility] [address] [id number] [place] [address] 30 Jun, 2011 [facility] [address] [id number] [place] [address] Jun, [facility] [address] [id number] [place] [address] Jun, [facility] [address] [id number] [place] [address] Jun, [facility] [address] [id number] [place] [address] Jun, [facility] [address] [id number] [place] [address] May, [facility] [address] [id number] [place] [address] May, [facility] [place] [facility] [address] [id number] [place] [address] May, [facility] [place] [facility] [address] [id number] [place] [address] 14 May, 2011 [facility] [place] [facility] [address] [id number] [place] [address] 12 May, 2011 [facility] [place] [facility] [address] [id number] [place] [address] 07 May, 2011 [facility] [place] [facility] [address] [id number] [place] [address]28 05 May, 2011 [facility] [place] [facility] [address] [id number] [place] [address] 1869 15 Apr, 2011 [facility] [place] [facility] [address] [id number] [place] [address] 15 Apr, 2011 [facility] [place] [facility] [address] [id number] [place] [address] 07 Apr, 2011 [facility] [place] [facility] [address] [id number] [place] [address] Apr, [facility] [place] [facility] [address] [id number] [place] [address] Apr, [facility] [place] [facility] [address] [id number] [place] [address]- [address] Apr, [facility] [place] [facility] [address] [id number] [place] [address] Mar, [facility] [place] [facility] [address] [id number] [place] [address] Mar, [facility] [place] [facility] [address] [id number] [place] [address] Mar, [facility] [place] [facility] [address] [id number] [place] [address] Mar, [facility] [place] [facility] [address] [id number] [place] [address] Jan, [facility] [place] [facility] [address] [id number] [place] [address] Dec, [facility] [place] [facility] [address] [id number] [place] [address] Dec, [facility] [place] [facility] [address] [id number] [place] [address] October, [facility] [place] [facility] [address] [id number] [place] [address] 20 Sep, 2010 [facility] [place] [facility] [address] [id number] [place] [address]37 14 Sep, 2010 [facility] [place] [facility] [address] [id number] [place] [address] 1436 17 Jul, 2010 [facility] [place] [facility] [address] [id number] [place] [address] 16 Jul, 2010 [facility] [place] [facility] [address] [id number] [place] [address] 31 May, 2010 [facility] [place] [facility] [address] [id number] [place] [address], [place] [address] May, [facility] [place] [facility] [address] [id number] [place] [address] May, [facility] [place] [facility] [address] [id number] [place] [address] May, [facility] [place] [facility] [address] [id number] [place] [address] Apr, [facility] [place] [facility] [address] [id number] [place] [address] Apr, [facility] [place] [facility] [address] [id number] [place] [address] Apr, [facility] [place] [facility] [address] [id number] [place] [address] Apr, [facility] [place] [facility] [address] [id number] [place] [address] Apr, [facility] [place] [facility] [address] [id number] [place] [address]597 Mar, [facility] [place] [facility] [address] [id number] [place] [address] 14 Mar, 2010 [facility] [place] [facility] [address] [id number] [place] [address] 13 Mar, 2010 [facility] [place] [facility] [address] [id number] [place] [address] 12 Mar, 2010 [facility] [place] [facility] [address] [id number] [place] [address] Jan, [facility] [id number] [place] [address] Dec, [facility] [id number] [address] Sep, [facility] [id number] [place] [address] [address] May, [facility] [id number] [address] May, [facility] [id number] [address] May, [facility] [id number] [place] [address] Apr, [facility] [id number] [place] [address] Apr, [facility] [id number] [address] Apr, [facility] [id number] [place] [address] Apr, [facility] [id number] [address] Apr, [facility] [id number] [place] [address] Mar, [facility] [id number] [address] Mar, [facility] [address] [id number] [address] Jul, IMMUNIZATIONS No Known Immunizations SOCIAL HISTORY Never Assessed REASON FOR VISIT ED Visit PLAN OF CARE VITAL SIGNS MEDICATIONS Unknown [...] the January before. 03/2018 Hospitalization History Cellulitis-Via [facility] 12/20/15 Hospitalization History ED [place]- Abd pain 03/07/2017 Hospitalization History ED [place]- Abd pain 03/14/2017 Hospitalization History ED [place]- No bowel movement, rash 04/13/2017 Hospitalization History ED [place]- Abd pain r/t kidney surgery on 04/17/2017 Hospitalization History ED [place]- Abd pain r/t kidney surgery on 04/18/2017 Hospitalization History ED [place]- Lower abd pain 04/30/2017 Hospitalization History ED [place]- Cannot urinate 05/30/2017 Hospitalization History [facility] [place]- Pancreatitis Sx 06/29/2017 Hospitalization History [facility] [place]- Stomach pain 07/22/2017 Hospitalization History [facility] [place]- Left side pain 08/12/2017 Hospitalization History [facility] [place]- Incision site infection 08/30/2017 [facility] Seroma/Hematoma Left Abdomen. Discharged 09/04/17- Dr Daniel 09/02/2017 Hospitalization History [facility] [place]- Right shoulder and back pain 2017 Hospitalization History [facility] [place]- Shoulder/Back pain 11/11/2017 Hospitalization History [facility] [place]- Right shoulder blade pain 12/04/2017 Hospitalization History [facility] [place]- C-Diff 12/13/2017 Hospitalization History C diff et MRSA 12/27/2017
[2018-06-01 04:15] LABS: BILIRUBIN,URINE NEGATIVE (NEGATIVE); CLARITY,URINE SLIGHTLY CLOUDY; COLOR,URINE YELLOW; GLUCOSE, URINE (UA) NEGATIVE (NEGATIVE); KETONES,URINE NEGATIVE (NEGATIVE); LEUKOCYTE ESTERASE ,URINE NEGATIVE (NEGATIVE); NITRITE,URINE NEGATIVE (NEGATIVE); PH,URINE 6.5 (5-9); PROTEIN,URINE 1+ (NEGATIVE); UROBILINOGEN,URINE NORMAL (NORMAL)
[2018-06-01 04:22] LABS: BACTERIA,URINE TRACE /HPF; SQUAMOUS EPITHELIAL CELL,UR 25-50 /HPF
[2018-06-01 04:34] LABS: AMPHETAMINE SCREEN, URINE NEGATIVE (NEGATIVE); BARBITURATE SCREEN URINE NEGATIVE (NEGATIVE); BENZODIAZEPINES SCREEN URINE NEGATIVE (NEGATIVE); CANNABINOID SCREEN, URINE NEGATIVE (NEGATIVE); COCAINE SCREEN URINE NEGATIVE (NEGATIVE); METHADONE STAT NEGATIVE (NEGATIVE); METHAMPHETAMINE SCREEN URINE S NEGATIVE (NEGATIVE); OPIATE SCREEN URINE NEGATIVE (NEGATIVE); OXYCODONE STAT NEGATIVE (NEGATIVE); PROPOXYPHENE STAT NEGATIVE (NEGATIVE); TRICYCLIC ANTIDEPRESSANTS SCRE NEGATIVE (NEGATIVE)
--- NOTE | 2018-06-01 04:38 | ED Abdominal Pain ---
General Stated Complaint: LFT SIDE PAIN Source of Information: Patient, Old Records History of Present Illness Date Seen by Provider: Jun 01, 2018 Time Seen by Provider: 04:10 Initial Comments PT ARRIVES VIA POV FROM HOME PT C/O DIFFUSE LEFT SIDED ABDOMINAL PAIN THAT WOKE HER UP AT 0300 STATES SHE TOOK 2 TYLENOL AND CAME STRAIGHT HERE C/O NAUSEA, NO VOMITING NO DIARRHEA OR CONSTIPATION--HAD NORMAL BM YESTERDAY NO URINARY SYMPTOMS NO FEVER PT SEEN HERE 05/25/18 FOR GENERALIZED RIGHT SIDED ABDOMINAL PAIN--LAB NORMAL. NO CT DONE AT THAT TIME, DUE TO PT'S HISTORY OF HAVING A MULTITUDE OF CT SCANS FOR VARIOUS COMPLAINTS, ESPECIALLY ABDOMINAL PAIN COMPLAINTS PT HAS HAD A MULTITUDE OF VISITS FOR VARIOUS PAIN COMPLAINTS 19 VISITS IN 2018--MANY FOR ABDOMINAL PAIN COMPLAINTS PT HAS HAD LEFT NEPHRECTOMY FOR MALIGNANT TUMOR, THEN LEFT SIDED HERNIA REPAIR BY DR. LYLES, THEN ABSCESS IN LEFT ABDOMINAL WALL WITH DRAIN PLACEMENT BY DR. MARROQUIN. PT STATES SHE SAW ONCOLOGIST AT ON 05/19/18 Allergies and Home Medications Allergies Coded Allergies: fentanyl (Verified Allergy, Unknown, 02/13/18) meperidine (Verified Allergy, Unknown, 08/20/17) penicillin G (Verified Allergy, Unknown, 08/20/17) vancomycin (Unverified Adverse Reaction, Intermediate, severe itching, ) Home Medications Cyanocobalamin 1,000 Mcg/Ml Inj, 1,000 MCG IJ MONTHLY, (Reported) Estradiol 2 Mg Tablet, 2 MG PO HS, (Reported) Fluoxetine HCl 40 Mg Capsule, 40 MG PO HS, (Reported) Hydrocodone/Acetaminophen 1 Each Tablet, 1 TAB PO Q6H Prescribed by: LINDSEY MARROQUIN on 02/13/18 1335 Hydrocortisone 30 Gm Cream.appl, TOP DAILY PRN for INFLAMMATION, (Reported) Hyoscyamine Sulfate 0.125 Mg Tab.subl, 0.125 MG SL Q6H PRN for CRAMPS Prescribed by: GEORGES FINN on 05/25/18 1131 Lipase/Protease/Amylase 1 Each Tablet, PO UD, (Reported) TAKE 3 TABLETS WITH MEALS AND 2 TABLETS WITH SNACKS (HAS NOT STARTED TAKING DUE TO NOT BEING ABLE TO KEEP ANYTHING DOWN BUT 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) Ondansetron 8 Mg Tab.rapdis, 8 MG PO BID, (Reported) Promethazine HCl 25 Mg Tablet, 25 MG PO Q6H PRN for NAUSEA/VOMITING-2ND LINE, ( Reported) Promethazine HCl 25 Mg Tablet, 25 MG PO Q6H PRN for NAUSEA/VOMITING Prescribed by: GEORGES FINN on 05/25/18 1131 Ropinirole HCl 4 Mg Tablet, 4 MG PO HS, (Reported) Patient Home Medication List Home Medication List Reviewed: Yes Review of Systems Review of Systems Constitutional: no symptoms reported Respiratory: No Symptoms Reported Cardiovascular: No Symptoms Reported Gastrointestinal: See HPI, Abdominal Pain; Denies Constipated, Denies Diarrhea ; Nausea; Denies Vomiting Genitourinary: No Symptoms Reported Musculoskeletal: no symptoms reported Skin: no symptoms reported Psychiatric/Neurological: No Symptoms Reported Endocrine: No Symptoms Reported Past Qzqodrb-Nlnqor-Ddwfkk Hx Patient Social History Type Used: Cigarettes 2nd Hand Smoke Exposure: No Recent Foreign Travel: No Contact w/Someone Who Travel: No Recent Hopitalizations: Yes Immunizations Up To Date Tetanus Booster (TDap): Unknown PED Vaccines UTD: No Date of Pneumonia Vaccine: May 17, 2012 Date of Influenza Vaccine: Jul 03, 2012 Seasonal Allergies Seasonal Allergies: Yes (MILD) Past Medical History Surgeries: Yes (RIGHT KNEE SCOPE X5, LEFT KNEE SCOPE X 2; NASAL FX REPAIR; EGD/COLONOSCOPY; COCCYX REMOVAL; LEFT NEPHRECTOMY; LEFT MID ABDOMEN HERNIA REPAIR; ABDOMINAL WALL ABSCESS WITH DRAIN PLACEMENT) Abdominal, Adenoidectomy, Appendectomy, Gallbladder, 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, Nephrectomy, Orthopedic, Tonsillectomy Respiratory: Yes (HASNT USED INHALER IN > 4 YRS) Asthma Currently Using CPAP: No Currently Using BIPAP: No Cardiac: No Neurological: Yes (RESTLESS LEG SYNDROME) Headaches /Migraines 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: No (HX ENDOMETRIOSIS ) 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 Sexually Transmitted Disease: No HIV/AIDS: No Genitourinary: Yes (L KIDNEY REMOVED FOR TUMOR-MALIGNANT;) UTI-Chronic Gastrointestinal: Yes (ENLARGED LIVER/FATTY LIVER; LEFT MID ABDOMEN HERNIA-S/P REPAIR; LEFT ABDOMINAL WALL ABSCESS-S/P I&D) Abdominal Hernia, Liver Disease/Jaundice, Pancreatitis, Polyps Musculoskeletal: Yes (COCCYX-REPAIRED, MAY HAVE SIGNS OF ARTHRITIS) Chronic Back Pain Endocrine: Yes (CHRONIC PANCREATITIS; OBESITY) HEENT: No Loss of Vision: Denies Hearing Impairment: Denies Cancer: Yes Kidney Did You Recieve Any Treatments: Yes What Type of Treatment Did You: Surgical Intervention Psychosocial: Yes Anxiety, Depression Integumentary: No Herpes Blood Disorders: No Adverse Reaction/Blood Tranf: No (N/A) Family Medical History Cardiovascular disease 19 FATHER Completed stroke 19 FATHER Diabetes mellitus 19 FATHER Hypercholesterolemia 19 FATHER 19 MOTHER Hypertension 19 FATHER 19 MOTHER Neoplasm 19 MOTHER Psychosocial problem 19 FATHER 19 MOTHER Cancer, Diabetes, Hypertension Physical Exam Vital Signs Capillary Refill : Height/Weight/BMI Height: 5'2.00" Weight: 250lbs. 2.0oz. [id number]; 45.8 BMI Method:Stated General Appearance: no apparent distress, obese Respiratory: normal breath sounds, no respiratory distress, no accessory muscle use Cardiovascular: regular rate, rhythm, no murmur Gastrointestinal: normal bowel sounds, soft, no organomegaly, no pulsatile mass ; No distended, No guarding, No rebound; tenderness (DIFFUSE LEFT SIDED ABDOMINAL TENDERNESS, BUT MOST IS AROUND PRIOR INCISION AND LLQ. 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 DECREASED IN EDEMA AND INFLAMMATION AT LEFT FLANK SUB Q FAT TISSUE--PER [facility] VIA FAX @ [phone] Reviewed: Reviewed by Me Departure Impression Primary Impression: Left sided abdominal pain Additional Impression: RECURRENT LEFT ABDOMINAL WALL HERNIA Disposition: 01 HOME, SELF-CARE Condition: Stable Departure-Patient Inst. Referrals: LINDSEY MARROQUIN BETHANY N MD (PCP/Family) Primary Care Physician YUNIOR LYLES MD Patient Instructions: Abdominal Hernia (DC), Acute Abdomen (Belly Pain), Adult (DC) Add. Discharge Instructions: CONTINUE YOUR CURRENT MEDICATIONS PRESCRIBED CLEAR LIQUIDS-WATER, BROTH, JELLO, GATORADE WHEN YOUR NAUSEA AND PAIN IS BETTER, ADD BRATS DIET TO CLEAR LIQUIDS--BANANAS, RICE, APPLESAUCE, TOAST, SALTINES FOLLOW UP WITH DR. MARROQUIN OR DR. LYLES THIS WEEK FOR FURTHER CARE Scripts Ondansetron HCl (Zofran) 8 Mg Tablet 8 MG PO Q6H for Nausea/Vomiting, #10 TAB Prov: YAN CHAPARRO DO 06/01/18 Tramadol HCl (Ultram) 50 Mg Tablet 50 MG PO Q4H, #20 TAB Prov: YAN CHAPARRO DO 06/01/18 YAN CHAPARRO DO Jun 01, 2018 04:37
[2018-06-01] MEDS ORDERED: HYOSCYAMINE 0.125 MG (LEVSIN) TAB PO ONE (04:45)
[2018-06-01] MEDS ORDERED: ONDANSETRON 8 MG (ZOFRAN) ORAL DISSOLVE TAB PO ONE (04:45)
[2018-06-01 04:57] LABS: BASOPHILS % (AUTO) 0 % (0-10); EOSINOPHILS # (AUTO) 0.2 10^3/uL (0.0-0.3); EOSINOPHILS % (AUTO) 3 % (0-10); HEMATOCRIT 36 % (35-52); HEMOGLOBIN 11.5 G/DL (11.5-16.0); LYMPHOCYTES # (AUTO) 2.5 X 10^3 (1.0-4.0); LYMPHOCYTES % (AUTO) 27 % (12-44); MEAN CORPUSCULAR HEMOGLOBIN 27 PG (25-34); MEAN CORPUSCULAR HGB CONC 32 G/DL (32-36); MEAN CORPUSCULAR VOLUME 84 FL (80-99); MEAN PLATELET VOLUME 8.9 FL (7.4-10.4); MONOCYTES # (AUTO) 0.5 X 10^3 (0.0-1.0); MONOCYTES % (AUTO) 5 % (0-12); NEUTROPHILS % (AUTO) 65 % (42-75); PLATELET COUNT 292 10^3/uL (130-400); RED BLOOD COUNT 4.27 10^6/uL (4.35-5.85); RED CELL DISTRIBUTION WIDTH 14.3 % (10.0-14.5); WHITE BLOOD COUNT 9.2 10^3/uL (4.3-11.0)
--- OUTSIDE RECORDS SUMMARY | 2018-06-01 05:10 | XMS REPORT | Clinical Summary ---
Author Author [facility] Organization [facility] Address Unknown Phone Unavailable Care Team Providers Care Transport Tech Name Role Phone Michael Sutton MD Unavailable [...] in the Health Information Management department at [phone] for further assistance in locating additional records.[facility] Allergies Comments Active Allergy Reactions Severity Noted [...] Place vomiting on tongue to disolve. Active dkogth-oxpusrhg-meuavhg Take 3 300 tablet 5 (VIOKACE) 20,880-78,300- [...] Overview: Added automatically from request for surgery [id number] Intractable vomiting with nausea 01/14/2018 Overview: Added automatically from request for surgery [id number] Left renal mass 04/10/2017 Renal mass 03/21/2017 Overview: Added automatically from request for surgery [id number] 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 06/24/2013 Overview: S/P FREDI LINO 11/27 [...] Taken Vital Sign Reading 05/19/2018 1:06 PM ETCHER AIRCRAFT Blood Pressure 135/79 05/19/2018 1:06 PM ETCHER AIRCRAFT Pulse 81 05/19/2018 1:06 PM ETCHER AIRCRAFT Temperature 36.6 C (97.9 F) 05/19/2018 1:06 PM ETCHER AIRCRAFT Respiratory Rate 18 05/19/2018 1:06 PM ETCHER AIRCRAFT Oxygen Saturation 99% - Inhaled Oxygen - Concentration 05/19/2018 1:06 PM ETCHER AIRCRAFT Weight 121.6 kg (268 lb) 05/19/2018 1:06 PM ETCHER AIRCRAFT Height 157.7 cm (5' 2.09") 05/19/2018 1:06 PM ETCHER AIRCRAFT Body Mass Index 48.88 Plan of Treatment Health Maintenance Due Date Last Done Comments PHYSICAL (COMPREHENSIVE) 1991 EXAM HIV SCREENING 1999 DTAP/TDAP VACCINES (1 - 2002 Tdap) CERVICAL CANCER SCREENING 2014 INFLUENZA VACCINE 01/15/2018 Procedures Comments Procedure Name Priority Date/Time Associated Diagnosis CT ABDOMEN W CONTRAST Routine 05/19/2018 Left renal mass 11:[address] CHEST W CONTRAST Routine 05/19/2018 Left renal mass 11:52 AM ETCHER AIRCRAFT POC CREATININE, RAD 05/19/2018 11:18 AM ETCHER AIRCRAFT BASIC METABOLIC PANEL Routine 05/19/2018 Left renal mass 11:[address] ABD/PEL EXTERNAL Routine 03/02/2018 Diagnosis unknown IMAGING 12:00 AM CDT from Last 3 Months Results * CT ABDOMEN W CONTRAST (05/19/2018 11:52 AM ETCHER AIRCRAFT) Impressions Performed At CHEST: [facility] RESULTS [...] Interface, Radiant Results - 05/19/2018 1:[address] CHEST AND ABDOMEN Clinical Indication: Female, [...] CT CHEST W CONTRAST (05/19/2018 11:52 AM ETCHER AIRCRAFT) Impressions Performed At CHEST: [facility] RESULTS [...] Interface, Radiant Results - 05/19/2018 1:[address] CHEST AND ABDOMEN Clinical Indication: Female, [...] on 05/19/2018 12:43 PM. Performing Organization Address City/[facility]/Zipcode Phone Number RAD RESULTS * POC CREATININE, RAD (05/19/2018 11:18 AM ETCHER AIRCRAFT) Creatinine, POC 0.8 0.4 - 1.00 MG/DL [facility] Performing Organization Address City/[facility] Phone Number [facility] [address] [place] [address] * BASIC METABOLIC PANEL (05/19/2018 11:14 AM ETCHER AIRCRAFT) Sodium 136 (L) 137 - 147 MMOL/L [...] for questions. Specimen Blood Performing Organization Address [facility] Phone Number [facility] [address] [place] [address] * CT ABD/PEL EXTERNAL IMAGING (03/02/2018 12:00 AM CDT) Narrative Performed At This order has been auto finalized and does not contain a result. from Last 3 Months Insurance Payer Benefit Subscriber ID Type Phone Address Plan / Group MEDICARE MEDICARE xxxxxxxxxxx Medicare PART A AND B [employer] [place] [employer] xxxxxxxxxxx Medicaid Advance Directives Patient has advance care planning documents, and code status on file. For more information, please contact: [facility] [address] [place] [address] Date Inactivated Comments Code Status Date Activated 04/11/2017 4:57 PM Full Code 04/10/2017 5:31 PM Provider has discussed Code Status No, discussion not w/Patient or Family? necessary based on Dx
--- OUTSIDE RECORDS SUMMARY | 2018-06-01 05:10 | XMS REPORT | Encounter Summary ---
Author Author [facility] Organization [facility] Address Unknown Phone Unavailable Care Team Providers Care House Registry Rn Name Role Phone Michael Sutton MD Unavailable Unavailable Mary Whittington MD PCP Jessica Valera Unavailable Maggie Puente Unavailable Unavailable Mary Telles APRN Unavailable Bam Ritter MD Unavailable Radha Bo LPN Unavailable Unavailable Jose Snachez MD Unavailable Encounter Details Care Team Description Date Type Department Abel Poe MD [address] [place] [address] 05/19/2018 [facility] Encounter [facility] [address] [place], [place] [id number] Social History Date Tobacco Use Types Packs/Day [...] three times a day as needed. 12/11/2017 smoecf-cekmojsc-bvneari Take 3 300 tablet 5 (VIOKACE) 20,880-78,300- [...]
--- OUTSIDE RECORDS SUMMARY | 2018-06-01 05:11 | XMS REPORT | Encounter Summary ---
Author Author [facility] Organization [facility] Address Unknown Phone Unavailable Care Team Providers Care Marketing Technology Coordinator Name Role Phone Michael Sutton MD Unavailable Unavailable Mary Whittington MD PCP Jessica Valera Unavailable Maggie Puente Unavailable Unavailable Mary Telles APRN Unavailable Bam Ritter MD Unavailable Radha Bo LPN Unavailable Unavailable Jose Sanchez MD Unavailable Encounter Details Care Team Description Date Type Department 03/02/2018 Hospital [facility] [address] [place] [id number] Social History Date Tobacco Use Types Packs/Day [...] three times a day as needed. 12/11/2017 rszjtp-pdtppqta-dpljcbe Take 3 300 tablet 5 (VIOKACE) 20,880-78,300- [...]
--- OUTSIDE RECORDS SUMMARY | 2018-06-01 05:11 | XMS REPORT | Encounter Summary ---
Author Author [facility] Organization [facility] Address Unknown Phone Unavailable Care Team Providers Care Commercial Truck Driver Name Role Phone Michael Sutton MD Unavailable Unavailable Mary Whittington MD PCP Jessica Valera Unavailable Maggie Puente Unavailable Unavailable Mary Telles APRN Unavailable Bam Ritter MD Unavailable Radha Bo SENIOR JAVA WEB APPLICATION DEVELOPER Unavailable Unavailable Jose Sanchez MD Unavailable Reason for Referral * Radiology Services (Routine) Referred By Contact Referred To Contact Status Reason Specialty Diagnoses / [place] [address] [place] [address] New Request Radiology Diagnoses Malignant neoplasm of kidney, unspecified laterality (HCC) P rocedures CT ABDOMEN W CONTRAST * Radiology Services (Routine) Referred By Contact Referred To Contact Status Reason Specialty Diagnoses / Procedures Abel Poe MD [address] [facility] [address] [place] [address] New Request Radiology Diagnoses Malignant neoplasm of kidney, unspecified laterality (HCC) P rocedures CT CHEST W CONTRAST Reason for Visit * Reason Comments Heme/Onc Care Encounter Details Care Team Description [place] [address] [place] [address] [place] [address] Malignant neoplasm of kidney, unspecified laterality (HCC) ( Primary Dx) 05/19/2018 Office Visit [facility] [place] [address] [place] [address] Social History Date Tobacco Use Types Packs/Day [...] Taken Vital Sign Reading 05/19/2018 1:06 PM ELECTRICAL HELPER Blood Pressure 135/79 05/19/2018 1:06 PM ELECTRICAL HELPER Pulse 81 05/19/2018 1:06 PM ELECTRICAL HELPER Temperature 36.6 C (97.9 F) 05/19/2018 1:06 PM ELECTRICAL HELPER Respiratory Rate 18 05/19/2018 1:06 PM ELECTRICAL HELPER Oxygen Saturation 99% - Inhaled Oxygen - Concentration 05/19/2018 1:06 PM ELECTRICAL HELPER Weight 121.6 kg (268 lb) 05/19/2018 1:06 PM ELECTRICAL HELPER Height 157.7 cm (5' 2.09") 05/19/2018 1:06 PM ELECTRICAL HELPER Body Mass Index 48.88 in this encounter [...] Abel Poe MD - 05/19/2018 1:30 PM ELECTRICAL HELPER Name: Janeth Rajput : 1985 AGE: 33 [...] to three times a day as needed. uicghx-bzgkhnmj-vqawdfd (VIOKACE) 20,880-78,300- 78,300 unit tab Take 3 [...] GI and her surgeon close to home. TRICAL HELPER in this encounter Plan of Treatment Order [...] Diagnosis POC CREATININE, RAD 05/19/2018 11:18 AM ELECTRICAL HELPER in this encounter Results * POC CREATININE, RAD (05/19/2018 11:18 AM ELECTRICAL HELPER) Creatinine, POC 0.8 0.4 - 1.00 MG/DL [facility] Performing Organization Address City/State/Zipcode Phone Number [facility] [address] [place] [address] in this encounter Visit Diagnoses Diagnosis Malignant neoplasm of kidney, unspecified laterality (HCC) - Primary in this encounter
--- OUTSIDE RECORDS SUMMARY | 2018-06-01 05:11 | XMS REPORT | Encounter Summary ---
Author Author [facility] Organization [facility] Address Unknown Phone Unavailable Care Team Providers Care Seed Cleaning Machine Operator Name Role Phone Michael Sutton MD Unavailable Unavailable Mary Whittington MD PCP Jessica Valera Unavailable Maggie Puente Unavailable Unavailable Mary Telles CLOTHING CONSULTANT Unavailable Bam Ritter MD Unavailable Radha Bo LPN Unavailable Unavailable Jose Sanchez MD Unavailable Reason for Visit * Reason Comments Nausea Vomiting Abdominal pain Abdominal Distention Diarrhea Constipation Blood in stools Encounter Details Care Team Description Date Type Department Randy Nunez MD [address] [place] [address] Vomiting, intractability of vomiting not specified, presence of nausea not specified, unspecified vomiting type (Primary Dx); Chronic pancreatitis, unspecified pancreatitis type (HCC) 04/09/2018 Office Visit [facility] [address] [place] [address] Social History Date Tobacco Use [...] 10:30 AM CDT Call my nurse at [phone] if you have any troubles or questions. Take 3 Viokase with each meal. Make sure you call your oncologist in [place] to let them know about the new [...] at the [facility] in [place], [place]. She was recently diagnosed with Clostridium [...] to three times a day as needed. mmizws-xkwaieoe-zcotdfp (VIOKACE) 20,880-78,300- 78,300 unit tab Take 3 [...]
--- OUTSIDE RECORDS SUMMARY | 2018-06-01 05:11 | XMS REPORT | Encounter Summary ---
Author Author [facility] Organization [facility] Address Unknown Phone Unavailable Care Team Providers Care Infant Toddler Lead Teacher Name Role Phone Michael Sutton MD Unavailable Unavailable Mary Whittington MD PCP Jessica Valera Unavailable Maggie Puente Unavailable Unavailable Mary Telles APRN Unavailable Bam Ritter MD Unavailable Radha Bo LPN Unavailable Unavailable Jose Sanchez MD Unavailable Encounter Details Care Team Description Date Type Department Abel Poe MD [address] [place] [address] Left renal mass (Primary Dx) 04/29/2018 Orders Only [facility] [address] [phone] Social History Date Tobacco Use Types Packs/Day [...] * BASIC METABOLIC PANEL (05/19/2018 11:14 AM BRAKE LINING CURER) Sodium 136 (L) 137 - 147 MMOL/L [...] Blood Performing Organization Address City/State/Zipcode Phone Number [facility] [address] [place] [address] in this encounter Visit Diagnoses Diagnosis Left renal mass - Primary Unspecified disorder of kidney and ureter in this encounter
--- OUTSIDE RECORDS SUMMARY | 2018-06-01 05:11 | XMS REPORT | Encounter Summary ---
Author Author [facility] Organization [facility] Address Unknown Phone Unavailable Care Team Providers Care Egg Producer Name Role Phone Michael Sutton MD Unavailable Unavailable Mary Whittington MD PCP Jessica Valera Unavailable Maggie Puente Unavailable Unavailable Mary Telles APRN Unavailable Bam Ritter MD Unavailable Radha Bo LPN Unavailable Unavailable Jose Sanchez MD Unavailable Reason for Referral * Radiology Services (Routine) Referred By Contact Referred To Contact Status Reason Specialty Diagnoses / Procedures Abel Poe MD [address] [place] [address] New Request Radiology Diagnoses Left renal mass P rocedures CT ABDOMEN W CONTRAST CT ABDOMEN WO/W CONTRAST * Radiology Services (Routine) Referred By Contact Referred To Contact Status Reason Specialty Diagnoses / Procedures Abel Poe MD [address] [place] [address] New Request Radiology Diagnoses Left renal mass P rocedures CT ABDOMEN W CONTRAST CT ABDOMEN WO/W CONTRAST * Radiology Services (Routine) Referred By Contact Referred To Contact Status Reason Specialty Diagnoses / Procedures Abel Poe MD [address] [place] [address] [place] [address] No Auth Needed Radiology Diagnoses Left renal mass P rocedures CT CHEST W CONTRAST CT CHEST WO/W CONTRAST CHG CT ABDOMEN W/CONTRAST MATERIAL * Radiology Services (Routine) Referred By Contact Referred To Contact Status Reason Specialty Diagnoses / [place] [address] [place] [address] [place] [address]ri [address] [place] [address] No Auth Needed Radiology Diagnoses Left renal mass P rocedures CT CHEST W CONTRAST CT CHEST WO/W CONTRAST CHG CT ABDOMEN W/CONTRAST MATERIAL Reason for Visit * Radiology Services (Routine) Referred By Contact Referred To Contact Status Reason Specialty Diagnoses / Procedures Abel Poe MD [address] Shukri [address] [facility] [place] [address] No Auth Needed Radiology Diagnoses Left renal mass P rocedures CT CHEST W CONTRAST CT CHEST WO/W CONTRAST CHG CT ABDOMEN W/CONTRAST MATERIAL Encounter Details Care Team Description Date [place] [address] [place] [address] [phone] 05/19/2018 Hospital [facility] Encounter [facility] 1st fl [address] [place], [place] [id number] Social History Date Tobacco Use Types Packs/Day [...] three times a day as needed. 12/11/2017 vplzur-zbjlqsah-cvqoghf Take 3 300 tablet 5 (VIOKACE) 20,880-78,300- [...] Abel Poe MD - 05/19/2018 3:41 PM ORTHOPEDICS TEACHER Gave results of the CT scan. EL OPEDICS TEACHER in this encounter Plan of Treatment Not on fileas of this encounter Procedures Comments Procedure Name Priority Date/Time Associated Diagnosis CT ABDOMEN W CONTRAST Routine 05/19/2018 Left renal mass 11:[address] CHEST W CONTRAST Routine 05/19/2018 Left renal mass 11:52 AM ORTHOPEDICS TEACHER BASIC METABOLIC PANEL Routine 05/19/2018 Left renal mass 11:14 AM ORTHOPEDICS TEACHER in this encounter Results * CT ABDOMEN W CONTRAST (05/19/2018 11:52 AM ORTHOPEDICS TEACHER) Impressions Performed At CHEST: [facility] RESULTS [...] Interface, Radiant Results - 05/19/2018 1:[address] CHEST AND ABDOMEN Clinical Indication: Female, [...] CT CHEST W CONTRAST (05/19/2018 11:52 AM ORTHOPEDICS TEACHER) Impressions Performed At CHEST: [facility] RESULTS [...] Interface, Radiant Results - 05/19/2018 1:[address] CHEST AND ABDOMEN Clinical Indication: Female, [...] on 05/19/2018 12:43 PM. Performing Organization Address City/State/[facility] Phone Number [facility] RESULTS * BASIC METABOLIC PANEL (05/19/2018 11:14 AM ORTHOPEDICS TEACHER) Sodium 136 (L) 137 - 147 MMOL/L [...] for questions. Specimen Blood Performing Organization Address [facility] Phone Number [facility] [address] [place] [address] in this encounter Visit Diagnoses Diagnosis Left renal mass Unspecified disorder of kidney and ureter in this encounter Administered Medications Action Date Dose Rate Site Medication Order MAR Action 05/19/2018 11:46 AM ORTHOPEDICS TEACHER 100 mL iohexol (OMNIPAQUE-350) 350 mg/mL Given injection 100 mL 100 mL, Intravenous, ONCE, 1 dose, Sat05/19/18 at 1100, NOTE: This is a HIGH ALERT Medication., 05/19/2018 11:47 AM ORTHOPEDICS TEACHER 50 mL sodium chloride PF 0.9% injection 50 mL Given 50 mL, Intravenous, ONCE, 1 dose, Sat05/19/18 at 1100, Intra-procedure (IR) in this encounter
--- OUTSIDE RECORDS SUMMARY | 2018-06-01 05:11 | XMS REPORT | Encounter Summary ---
Author Author [facility] Organization [facility] Address Unknown Phone Unavailable Care Team Providers Care Cone Chocolate Dipper Name Role Phone Michael Sutton MD Unavailable Unavailable Mary Whittington MD PCP Jessica Valera Unavailable Maggie Puente Unavailable Unavailable Mary Telles APRN Unavailable Bam Ritter MD Unavailable Radha Bo LPN Unavailable Unavailable Jose Sanchez MD Unavailable Reason for Visit * Reason Comments Blood in stools Encounter Details Care Team Description Date Type Department Randy Nunez MD [address] [place] [address] Blood in stools 03/27/2018 Telephone [facility]icians - Internal Medicine [facility] [address] [place] [address] Social History Date Tobacco Use [...]
[2018-06-01 05:14] LABS: ALANINE AMINOTRANSFERASE 19 U/L (0-55); ALBUMIN 3.6 GM/DL (3.2-4.5); ALKALINE PHOSPHATASE 60 U/L (40-136); AMYLASE 76 U/L (25-125); BILIRUBIN,TOTAL 0.3 MG/DL (0.1-1.0); BUN/CREATININE RATIO 18; CALCIUM 8.9 MG/DL (8.5-10.1); CARBON DIOXIDE 21 MMOL/L (21-32); CHLORIDE 107 MMOL/L (98-107); CREATININE SERUM 0.83 MG/DL (0.60-1.30); GFR ESTIMATED > 60; GLUCOSE 117 MG/DL (70-105); LIPASE 92 U/L (8-78); POTASSIUM 3.8 MMOL/L (3.6-5.0); SODIUM 141 MMOL/L (135-145); TOTAL PROTEIN 6.9 GM/DL (6.4-8.2)
[2018-06-01] MEDS ORDERED: TRAM-42 PO (05:52)
[2018-06-01] MEDS ORDERED: ONDA8TAB6 PO (05:52)
[2018-06-01] MEDS ORDERED: RX-TRAMADOL 50 MG (ULTRAM) TAB PPK#4 PO STA (05:53)
[2018-06-01] MEDS ORDERED: RX-ONDANSETRON 4 MG ODT (ZOFRAN) PPK #4 PO STA (05:53)
[2018-06-01] MEDS ORDERED: ONDANSETRON 4 MG/2 ML (SDV) Z0FRAN IVP ONE (06:00)
[2018-06-01 06:07] VITALS: BP 148/113
--- NOTE | 2018-06-01 06:18 | Diagnostic Imaging Report ---
PROCEDURE: CT abdomen and pelvis without contrast. TECHNIQUE: Multiple contiguous axial images were obtained through the abdomen and pelvis without the use of intravenous contrast. Indication: Left-sided abdominal pain. Comparison: 03/02/2018. Discussion: The lung bases are unremarkable. Solid nodule along the left hemidiaphragm is indeterminate though could represent underlying splenic tissue. Normal heart size. No pleural or pericardial fluid. The gallbladder surgically absent. The liver, pancreas, stomach, spleen, and adrenal glands are unremarkable. The left kidney is surgically absent. No hydronephrosis or stone on the right. Interval removal of the left body wall drain. No residual drainable fluid collection identified. Small amount of scarring is present. No obstruction, pneumatosis, or pneumoperitoneum. The appendix is surgically absent. The uterus is surgically absent. The urinary bladder is mostly decompressed. No ascites or pathologically enlarged lymph nodes identified. No osseous abnormality. Impression: 1. Interval removal of the left body wall soft tissue drain. No residual or suspicious fluid collection is identified within this region. Small amount of scarring is present. Prior postsurgical changes otherwise stable. No acute abnormality identified. Dictated by: Dictated on workstation # [id number]
== END 2018-06-01 06:08 | disposition home or self-care (01) ==
LOC: EDUNIT# 03:47 → ER 03:49 → UNDOADMIN 03:54 → 4TH 03:54 → ER 06:08
DX: K46.9 Unspecified abdominal hernia without obstruction or gangrene (principal); J45.909 Unspecified asthma, uncomplicated; G43.909 Migraine, unspecified, not intractable, without status migrainosus; G25.81 Restless legs syndrome; E66.9 Obesity, unspecified; F41.9 Anxiety disorder, unspecified; F32.9 Major depressive disorder, single episode, unspecified; Z68.42 Body mass index [BMI] 45.0-49.9, adult; Z86.010 Personal history of colon polyps; Z82.49 Family history of ischemic heart disease and other diseases of the circulatory system; Z87.440 Personal history of urinary (tract) infections; Z88.0 Allergy status to penicillin; Z88.8 Allergy status to other drugs, medicaments and biological substances; Z90.5 Acquired absence of kidney; Z85.528 Personal history of other malignant neoplasm of kidney; Z87.19 Personal history of other diseases of the digestive system; Z98.890 Other specified postprocedural states; Z79.52 Long term (current) use of systemic steroids; Z90.89 Acquired absence of other organs; Z90.710 Acquired absence of both cervix and uterus; Z90.49 Acquired absence of other specified parts of digestive tract
CPT/HCPCS: 36415; 74176; 80053; 80306; 81000; 82150; 83690; 83735; 85025

== ENCOUNTER 2018-06-17 12:58 | Emergency (ER) | payer MEDICARE, MEDICAID ==
[~2018-06-17] VITALS: Ht 157.5 cm; Wt 117.9 kg
[~2018-06-17 12:58] MED LIST changes: +TRAM-42 PO
--- OUTSIDE RECORDS SUMMARY | 2018-06-17 13:05 | XMS REPORT | Encounter Summary ---
Author Author [facility] Organization [facility] Address Unknown Phone Unavailable Care Team Providers Care Clerical Supervisor Name Role Phone Michael Sutton MD Unavailable Unavailable Mary Whittington MD PCP Jessica Valera Unavailable Maggie Puente Unavailable Unavailable Mary Telles APRN Unavailable Bam Ritter MD Unavailable Radha Bo WOUND CARE PHYSICIAN Unavailable Unavailable Jose Sanchez MD Unavailable Reason for Referral * Radiology Services (Routine) Referred By Contact Referred To Contact Status Reason Specialty Diagnoses / [place] [address] [place] [address] New Request Radiology Diagnoses Malignant neoplasm of kidney, unspecified laterality (HCC) P rocedures CT ABDOMEN W CONTRAST * Radiology Services (Routine) Referred By Contact Referred To Contact Status Reason Specialty Diagnoses / Procedures Abel Poe MD [address] [facility] MS [address] [place] [address] New Request Radiology Diagnoses Malignant neoplasm of kidney, unspecified laterality (HCC) P rocedures CT CHEST W CONTRAST Reason for Visit * Reason Comments Heme/Onc Care Encounter Details Care Team Description [place] [address] [place] [address] [place] [address] Malignant neoplasm of kidney, unspecified laterality (HCC) ( Primary Dx) 05/19/2018 Office Visit [facility] [place] [address] [place] [address] Social History Date Tobacco Use Types Packs/Day [...] Taken Vital Sign Reading 05/19/2018 1:06 PM IT TEACHER Blood Pressure 135/79 05/19/2018 1:06 PM IT TEACHER Pulse 81 05/19/2018 1:06 PM IT TEACHER Temperature 36.6 C (97.9 F) 05/19/2018 1:06 PM IT TEACHER Respiratory Rate 18 05/19/2018 1:06 PM IT TEACHER Oxygen Saturation 99% - Inhaled Oxygen - Concentration 05/19/2018 1:06 PM IT TEACHER Weight 121.6 kg (268 lb) 05/19/2018 1:06 PM IT TEACHER Height 157.7 cm (5' 2.09") 05/19/2018 1:06 PM IT TEACHER Body Mass Index 48.88 in this encounter [...] Abel Poe MD - 05/19/2018 1:30 PM IT TEACHER Name: Janeth Rajput : 1985 AGE: 33 [...] 01/31/2018 ESOPHAGOGASTRODUODENOSCOPY ENDOSCOPIC ULTRASOUND performed by Hal Saprks MD at [facility] [...] to three times a day as needed. thjrir-ubrzxwet-bzjmlku (VIOKACE) 20,880-78,300- 78,300 unit tab Take 3 [...] GI and her surgeon close to home. TEACHER in this encounter Plan of Treatment Order [...] Diagnosis POC CREATININE, RAD 05/19/2018 11:18 AM IT TEACHER in this encounter Results * POC CREATININE, RAD (05/19/2018 11:18 AM IT TEACHER) Creatinine, POC 0.8 0.4 - 1.00 MG/DL [facility] Performing Organization Address City/State/Zipcode Phone Number [facility] [address] [place] [address] in this encounter Visit Diagnoses Diagnosis Malignant neoplasm of kidney, unspecified laterality (HCC) - Primary in this encounter
--- OUTSIDE RECORDS SUMMARY | 2018-06-17 13:05 | XMS REPORT | Clinical Summary ---
Author Author [facility] Organization [facility] Address Unknown Phone Unavailable Care Team Providers Care Porcelain Mixer Name Role Phone Michael Sutton MD Unavailable [...] in the Health Information Management department at [phone] for further assistance in locating additional records.[facility] Allergies Comments Active Allergy Reactions Severity Noted [...] Place vomiting on tongue to disolve. Active oypvnt-zokkezpk-vplrhry Take 3 300 tablet 5 (VIOKACE) 20,880-78,300- [...] Overview: Added automatically from request for surgery [id number] Intractable vomiting with nausea 01/14/2018 Overview: Added automatically from request for surgery [id number] Left renal mass 04/10/2017 Renal mass 03/21/2017 Overview: Added automatically from request for surgery [id number] 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 06/24/2013 Overview: S/P FREDI LINO 11/27 [...] MD Blood in stools 03/27/2018 Telephone Gastroenterology from Last 3 Months Family History Medical [...] Taken Vital Sign Reading 05/19/2018 1:06 PM CARTOGRAPHY PROFESSOR Blood Pressure 135/79 05/19/2018 1:06 PM CARTOGRAPHY PROFESSOR Pulse 81 05/19/2018 1:06 PM CARTOGRAPHY PROFESSOR Temperature 36.6 C (97.9 F) 05/19/2018 1:06 PM CARTOGRAPHY PROFESSOR Respiratory Rate 18 05/19/2018 1:06 PM CARTOGRAPHY PROFESSOR Oxygen Saturation 99% - Inhaled Oxygen - Concentration 05/19/2018 1:06 PM CARTOGRAPHY PROFESSOR Weight 121.6 kg (268 lb) 05/19/2018 1:06 PM CARTOGRAPHY PROFESSOR Height 157.7 cm (5' 2.09") 05/19/2018 1:06 PM CARTOGRAPHY PROFESSOR Body Mass Index 48.88 Plan of Treatment Health Maintenance Due Date Last Done Comments PHYSICAL (COMPREHENSIVE) 1991 EXAM HIV SCREENING 1999 DTAP/TDAP VACCINES (1 - 2002 Tdap) CERVICAL CANCER SCREENING 2014 INFLUENZA VACCINE Completed 06/03/2018 Procedures Comments Procedure Name Priority Date/Time Associated Diagnosis CT ABDOMEN W CONTRAST Routine 05/19/2018 Left renal mass 11:[address] CHEST W CONTRAST Routine 05/19/2018 Left renal mass 11:52 AM CARTOGRAPHY PROFESSOR POC CREATININE, RAD 05/19/2018 11:18 AM CARTOGRAPHY PROFESSOR BASIC METABOLIC PANEL Routine 05/19/2018 Left renal mass 11:14 AM CARTOGRAPHY PROFESSOR from Last 3 Months Results * CT ABDOMEN W CONTRAST (05/19/2018 11:52 AM CARTOGRAPHY PROFESSOR) Impressions Performed At CHEST: [facility] RESULTS [...] Interface, Radiant Results - 05/19/2018 1:[address] CHEST AND ABDOMEN Clinical Indication: Female, [...] CT CHEST W CONTRAST (05/19/2018 11:52 AM CARTOGRAPHY PROFESSOR) Impressions Performed At CHEST: [facility] RESULTS [...] Interface, Radiant Results - 05/19/2018 1:[address] CHEST AND ABDOMEN Clinical Indication: Female, [...] PM. Performing Organization Address City/State/Zipcode Phone Number RAD RESULTS * POC CREATININE, RAD (05/19/2018 11:18 AM CARTOGRAPHY PROFESSOR) Creatinine, POC 0.8 0.4 - 1.00 MG/DL [facility] Performing Organization Address City/State[facility] Phone Number [facility] [address] [place] [address] * BASIC METABOLIC PANEL (05/19/2018 11:14 AM CARTOGRAPHY PROFESSOR) Sodium 136 (L) 137 - 147 MMOL/L [...] Blood Performing Organization Address City/State/Zipcode Phone Number [facility] [address] [place] [address] from Last 3 Months Insurance Payer Benefit Subscriber ID Type Phone Address Plan / Group MEDICARE MEDICARE xxxxxxxxxxx Medicare PART A AND B [employer] MED[place] [employer] xxxxxxxxxxx Medicaid Home) [place] [address] Advance Directives Patient has advance care planning documents, and code status on file. For more information, please contact: [facility] [address] [place] [address] Date Inactivated Comments Code Status Date Activated 04/11/2017 4:57 PM Full Code 04/10/2017 5:31 PM Provider has discussed Code Status No, discussion not w/Patient or Family? necessary based on Dx
--- OUTSIDE RECORDS SUMMARY | 2018-06-17 13:05 | XMS REPORT | Encounter Summary ---
Author Author [facility] Organization [facility] Address Unknown Phone Unavailable Care Team Providers Care Wall Mirror Department Supervisor Name Role Phone Michael Sutton MD Unavailable Unavailable Mary Whittington MD PCP Jessica Valera Unavailable Maggie Puente Unavailable Unavailable Mary Telles APRN Unavailable Bam Ritter MD Unavailable Radha Bo LPN Unavailable Unavailable Jose Sanchez MD Unavailable Encounter Details Care Team Description Date Type Department Abel Poe MD [address] [place] [address] 05/19/2018 [facility] [place] [facility] [address] [place], [place] [id number] Social History Date Tobacco Use Types Packs/Day [...] three times a day as needed. 12/11/2017 ggilvu-eqfghacl-ltyshhn Take 3 300 tablet 5 (VIOKACE) 20,880-78,300- [...]
--- OUTSIDE RECORDS SUMMARY | 2018-06-17 13:06 | XMS REPORT | Encounter Summary ---
Author Author [facility] Organization [facility] Address Unknown Phone Unavailable Care Team Providers Care Mud Worker Name Role Phone Michael Sutton MD Unavailable Unavailable Mary Whittington MD PCP Jessica Valera Unavailable Maggie Puente Unavailable Unavailable Mary Telles [employer] Unavailable Bam Ritter MD Unavailable Radha Bo LPN Unavailable Unavailable Jose Sanchez MD Unavailable Reason for Visit * Reason Comments Nausea Vomiting Abdominal pain Abdominal Distention Diarrhea Constipation Blood in stools Encounter Details Care Team Description Date Type Department Randy Nunez MD [address] [place] [address] Vomiting, intractability of vomiting not specified, presence of nausea not specified, unspecified vomiting type (Primary Dx); Chronic pancreatitis, unspecified pancreatitis type (HCC) 04/09/2018 Office Visit [facility] Physicians - Internal Medicine [facility] C [address] [place] [address] Social History Date Tobacco Use [...] 10:30 AM CDT Call my nurse at [phone] if you have any troubles or questions. Take 3 Viokase with each meal. Make sure you call your oncologist in [place] to let them know about the new [...] at the [facility] in [place], [place]. She was recently diagnosed with Clostridium [...] to three times a day as needed. jqfnbv-cevodxre-tofwbqb (VIOKACE) 20,880-78,300- 78,300 unit tab Take 3 [...]
--- OUTSIDE RECORDS SUMMARY | 2018-06-17 13:06 | XMS REPORT | Encounter Summary ---
Author Author [facility] Organization [facility] Address Unknown Phone Unavailable Care Team Providers Care Environmental Inspector Name Role Phone Michael Sutton MD Unavailable Unavailable Mary Whittington MD PCP Jessica Valera Unavailable Maggie Puente Unavailable Unavailable Mary Telles APRN Unavailable Bam Ritter MD Unavailable Radha Bo LPN Unavailable Unavailable Jose Sanchez MD Unavailable Reason for Referral * Radiology Services (Routine) Referred By Contact Referred To Contact Status Reason Specialty Diagnoses / Procedures Abel Poe MD [address] [place] [address] New Request Radiology Diagnoses Left renal mass P rocedures CT ABDOMEN W CONTRAST CT ABDOMEN WO/W CONTRAST * Radiology Services (Routine) Referred By Contact Referred To Contact Status Reason Specialty Diagnoses / Procedures Abel Poe MD [address] [place] [address] New Request Radiology Diagnoses Left renal mass P rocedures CT ABDOMEN W CONTRAST CT ABDOMEN WO/W CONTRAST * Radiology Services (Routine) Referred By Contact Referred To Contact Status Reason Specialty Diagnoses / Procedures Abel Poe MD [address] [place] [address] [place] [address] No Auth Needed Radiology Diagnoses Left renal mass P rocedures CT CHEST W CONTRAST CT CHEST WO/W CONTRAST CHG CT ABDOMEN W/CONTRAST MATERIAL * Radiology Services (Routine) Referred By Contact Referred To Contact Status Reason Specialty Diagnoses / [place] [address] [place] [address] [place] [address] [place] [address] No Auth Needed Radiology Diagnoses Left renal mass P rocedures CT CHEST W CONTRAST CT CHEST WO/W CONTRAST CHG CT ABDOMEN W/CONTRAST MATERIAL Reason for Visit * Radiology Services (Routine) Referred By Contact Referred To Contact Status Reason Specialty Diagnoses / Procedures Abel Poe MD [address] [facility] [place] [address] No Auth Needed Radiology Diagnoses Left renal mass P rocedures CT CHEST W CONTRAST CT CHEST WO/W CONTRAST CHG CT ABDOMEN W/CONTRAST MATERIAL Encounter Details Care Team Description [place] [address] [place] [address] [phone] 05/19/2018 Hospital [facility] Encounter [place] [facility] [address] [place], [place] [phone] Social History Date Tobacco Use Types Packs/Day [...] three times a day as needed. 12/11/2017 yrmbda-lsihjazt-ycqlqdd Take 3 300 tablet 5 (VIOKACE) 20,880-78,300- [...] Abel Poe MD - 05/19/2018 3:41 PM SALES ACCOUNT EXECUTIVE Gave results of the CT scan. EL S ACCOUNT EXECUTIVE in this encounter Plan of Treatment Not on fileas of this encounter Procedures Comments Procedure Name Priority Date/Time Associated Diagnosis CT ABDOMEN W CONTRAST Routine 05/19/2018 Left renal mass 11:52 AM SALES ACCOUNT EXECUTIVE CT CHEST W CONTRAST Routine 05/19/2018 Left renal mass 11:52 AM SALES ACCOUNT EXECUTIVE BASIC METABOLIC PANEL Routine 05/19/2018 Left renal mass 11:14 AM SALES ACCOUNT EXECUTIVE in this encounter Results * CT ABDOMEN W CONTRAST (05/19/2018 11:52 AM SALES ACCOUNT EXECUTIVE) Impressions Performed At CHEST: [facility] RESULTS [...] Interface, Radiant Results - 05/19/2018 1:17 PM SALES ACCOUNT EXECUTIVE CT CHEST AND ABDOMEN Clinical Indication: Female, [...] CT CHEST W CONTRAST (05/19/2018 11:52 AM SALES ACCOUNT EXECUTIVE) Impressions Performed At CHEST: [facility] RESULTS [...] Interface, Radiant Results - 05/19/2018 1:17 PM SALES ACCOUNT EXECUTIVE CT CHEST AND ABDOMEN Clinical Indication: Female, [...] on 05/19/2018 12:43 PM. Performing Organization Address City/State[facility] Phone Number [facility] RESULTS * BASIC METABOLIC PANEL (05/19/2018 11:14 AM SALES ACCOUNT EXECUTIVE) Sodium 136 (L) 137 - 147 MMOL/L [...] for questions. Specimen Blood Performing Organization Address [facility] Phone Number [facility] [address] [place] [address] in this encounter Visit Diagnoses Diagnosis Left renal mass Unspecified disorder of kidney and ureter in this encounter Administered Medications Action Date Dose Rate Site Medication Order MAR Action 05/19/2018 11:46 AM SALES ACCOUNT EXECUTIVE 100 mL iohexol (OMNIPAQUE-350) 350 mg/mL Given injection 100 mL 100 mL, Intravenous, ONCE, 1 dose, Sat05/19/18 at 1100, NOTE: This is a HIGH ALERT Medication., 05/19/2018 11:47 AM SALES ACCOUNT EXECUTIVE 50 mL sodium chloride PF 0.9% injection 50 mL Given 50 mL, Intravenous, ONCE, 1 dose, Sat05/19/18 at 1100, Intra-procedure (IR) in this encounter
--- OUTSIDE RECORDS SUMMARY | 2018-06-17 13:06 | XMS REPORT | Encounter Summary ---
Author Author [facility] Organization [facility] Address Unknown Phone Unavailable Care Team Providers Care Asset Protection Professional Name Role Phone Michael Sutton MD Unavailable Unavailable Mary Whittington MD PCP Jessica Valera Unavailable Maggie Puente Unavailable Unavailable Mary Telles APRN Unavailable Bam Ritter MD Unavailable Radha Bo LPN Unavailable Unavailable Jose Sanchez MD Unavailable Encounter Details Care Team Description Date Type Department Abel Poe MD [address] [place] [address] Left renal mass (Primary Dx) 04/29/2018 Orders Only [facility] [address] [address] Social History Date Tobacco Use Types Packs/Day [...] * BASIC METABOLIC PANEL (05/19/2018 11:14 AM MATHEMATICS LECTURER) Sodium 136 (L) 137 - 147 MMOL/L [...] Blood Performing Organization Address City/State/Zipcode Phone Number [facility] [address] [place] [address] in this encounter Visit Diagnoses Diagnosis Left renal mass - Primary Unspecified disorder of kidney and ureter in this encounter
--- OUTSIDE RECORDS SUMMARY | 2018-06-17 13:06 | XMS REPORT | Encounter Summary ---
Author Author [facility] Organization [facility] Address Unknown Phone Unavailable Care Team Providers Care Automobile And Property Underwriter Name Role Phone Michael Sutton MD Unavailable Unavailable Mary Whittington MD PCP Jessica Valera Unavailable Maggie Puente Unavailable Unavailable Mary Telles APRN Unavailable Bam Ritter MD Unavailable Radha Bo LPN Unavailable Unavailable Jose Sanchez MD Unavailable Reason for Visit * Reason Comments Blood in stools Encounter Details Care Team Description Date Type Department Randy Nunez MD [address] [place] [address] Blood in stools 03/27/2018 Telephone [facility] - Internal Medicine [facility] [address] [place] [address] Social History Date Tobacco Use [...]
--- OUTSIDE RECORDS SUMMARY | 2018-06-17 13:07 | XMS REPORT ---
Author Author SAI CARMEN [facility] Address [address] [place] [address] Care Team Providers Care Transformer Inspector Name Role Phone SAICORTNEY KOENIGHANY Unavailable PROBLEMS Type Condition ICD9-CM Code FDD82-AP Code Onset Dates Condition Status SNOMED Code Problem Atelectasis J98.11 Active 18242183 Problem Restless leg syndrome G25.81 Active 05094939 Problem Trichotillomania F63.3 Active 40868938 Problem Primary osteoarthritis of right knee M17.11 Active 187198908176144 Problem Intestinal malabsorption, unspecified K90.9 Active 34945686 Problem Chronic post-traumatic stress disorder (PTSD) F43.12 Active 475026224 Problem Generalized social phobia F40.11 Active 73695113 Problem Chronic fatigue R53.82 Active 94189333 Problem Moderate episode of recurrent major depressive disorder F33.1 Active 787312462 Problem Chronic tension-type headache, intractable G44.221 Active 139128482 Problem Morbid (severe) obesity due to excess calories E66.01 Active 639679906 Problem Nodule of left lung R91.1 Active 083631125 Problem History of renal cell carcinoma Z85.528 Active 296644131 Problem FH: polycystic ovary Z84.2 Active 423405039 Problem Chronic pancreatitis K86.1 Active 499766979 Problem Hyperlipidemia, mixed E78.2 Active 564860963 Problem Asthma J45.909 Active 788506603 Problem Hirsuties L68.0 Active 989150566 Problem Polydipsia R63.1 Active 25973595 ALLERGIES No Information ENCOUNTERS Encounter Location Date Diagnosis [facility] [id number], [place] [address] Jun, [facility] [address] [facility] [id number] [address] May, [facility] [id number] [place] [address] 23716- 6341 May, [facility] [id number] [place] [address] 27973- 1705 May, [facility] [id number] [place] [address] 39159- 5331 May, [place] [address] [address]- 3167 Apr, Generalized social phobia F40.11 ; Trichotillomania F63.3 ; Chronic post-traumatic stress disorder (PTSD) F43.12 and BMI 45.0-49.9, adult Z68.42 [place] [id number] [place] [address] 41912- 1931 Apr, [place] [address] 72149- 3792 Apr, Chronic tension-type headache, intractable G44.221 [place] [id number] [place] [address] 46836- 7657 Apr, [facility] [id number] [place] [address] 57086 -5885 Mar, [facility] [id number] [place] [address] 37706 -7237 Mar, BMI 45.0-49.9, adult Z68.42 and Pimples R23.8 [place] [id number] [place] [address] 86585- 3949 Mar, [place] [id number] [place] [address] 67233- 4743 Mar, [place] [id number] [place] [address] 46448- 0353 Mar, Decreased urination R34 ; Chronic fatigue R53.82 ; Peripheral edema R60.9 ; Diarrhea, unspecified type R19.7 ; Non-intractable vomiting with nausea, unspecified vomiting type R11.2 ; BMI 45.0-49.9, adult Z68.42 and Chronic post-traumatic stress disorder (PTSD) F43.12 [place] [id number] [place] [address] 70428- 2832 Mar, Intestinal malabsorption, unspecified K90.9 ; Diarrhea, unspecified R19.7 ; Urinary urgency R39.15 ; Rectal bleeding K62.5 and Decreased urine output R34 [place] [address] 74279- 7670 Mar, Decreased urine output R34 [place] [address] 36326- 3089 Mar, Rectal bleeding K62.5 [place] [address] 05016- 4106 Mar, Rectal bleeding K62.5 [place] [address] 10320- 3824 Mar, Urinary urgency R39.15 [place] [id number] [place] [address] 02713- 7349 Mar, Urinary urgency R39.15 [place] [address] 89417- 0737 Mar, Primary osteoarthritis of right knee M17.11 and BMI 45.0- 49.9, adult Z68.42 [place] [address] 24874- 7400 Mar, [place] [id number] [place] [address] 67101- 6012 Feb, Left upper arm pain M79.622 [place] [address] 40084- 2695 Feb, [place] [id number] [place] [address] 83279- 7759 Jan, Acute pain of right knee M25.561 ; Right upper quadrant abdominal pain R10.11 and BMI 45.0-49.9, adult Z68.42 [facility] [address], [place] [address] 8758 Jan, [facility] [id number] [place] [address] 01358- 9084 Jan, [facility] [id number] [place] [address] 24194- 1478 Dec, [facility] [id number] [place] [address] 61625- 2813 Dec, Intestinal malabsorption, unspecified K90.9 and Diarrhea, unspecified R19.7 [facility] [id number] [place] [address] 18956- 2664 Dec, [facility] [id number] [place] [address] 26776- 2883 Dec, Strep throat J02.0 ; Intestinal malabsorption, unspecified K90.9 ; Diarrhea, unspecified R19.7 ; Postoperative seroma involving digestive system after non-digestive system procedure K91.873 ; Hyperlipidemia, mixed E78.2 and BMI 45.0-49.9, adult Z68.42 [facility] [id number] [place] [address] 03163- 8543 Dec, [facility] [address], [place] [address]- 1570 Dec, Nausea R11.0 [facility] [id number] [place] [address] 25401- 9344 Dec, [facility] [id number] [place] [address] 48498 -6735 Dec, Sore throat J02.9 ; Strep throat J02.0 and BMI 45.0-49.9, adult Z68.42 [facility] [address], [place] [address]- 0872 Dec, [facility] [address] [place] [address]- 7201 Dec, [facility] [address], [place] [address]- 6628 Dec, [facility] [address], [place] [address]- 9654 Dec, [facility] [address] [place] [address] 47629- 2721 Dec, [facility] [id number] [place] [address] 54148- 3544 Dec, [facility] [address] [place] [address] 31247- 6566 Dec, [facility] [id number] [place] [address] 76901- 3652 Dec, [facility] [id number] [place] [address] 37602- 2082 Dec, Clostridium difficile colitis A04.72 ; Intractable vomiting with nausea, unspecified vomiting type R11.2 and BMI 45.0-49.9, adult Z68.42 [facility] [address], [place] [address]- 8666 Dec, [facility] [address], [place] [address]- 5780 Nov, [facility] [address], [place] [address]- 3867 Nov, [facility] [address], [place] [address]- 3604 Nov, [facility] [id number] [address]- 3395 Nov, [facility] [address], [place] [address] Nov, [facility] [address], [place] [address]- 5735 Nov, Hyperlipidemia, mixed E78.2 [facility] [address], [place] [address] Nov, Acute suppurative otitis media of right ear without spontaneous rupture of tympanic membrane, recurrence not specified H66.001 and BMI 45.0-49.9, adult Z68.42 [facility] [id number] [place] [address] 50044- 5084 Nov, Hyperlipidemia, mixed E78.2 [place] [id number] [place] [address] 73363- 2001 Nov, [place] [id number] [place] [address] 47311- 1688 Nov, [place] [id number] [place] [address] 14459- 3306 Nov, Nodule of left lung R91.1 [place] [id number] [place] [address] 07254- 5605 Nov, Medicare annual wellness visit, initial Z00.00 [...] adult Z68.42 and Encounter for immunization Z23 [facility] [address], [place] [address]- 7324 October, [place] [id number] [place] [address] 10279- 2878 October, Nodule of left lung R91.1 [place] [id number] [place] [address] 03928- 2941 October, Nodule of left lung R91.1 [place] [id number] [place] [address] 45314- 3902 October, Recurrent major depressive disorder, in partial remission F33.41 ; Restless leg syndrome G25.81 ; Generalized social phobia F40.11 ; Chronic post-traumatic stress disorder (PTSD) F43.12 ; BMI 45.0-49.9, adult Z68.42 and Trichotillomania F63.3 [place] [address] 61553- 6608 October, [place] [address] 05815- 6425 Sep, Chronic fatigue R53.82 and BMI 45.0-49.9, adult Z68.42 [place] [address] 01989- 9719 Aug, [place] [address] 90928- 7601 Jul, Restless leg syndrome G25.81 and B12 deficiency E53.8 [place] [address] 32126- 0053 Jul, [place] [id number] [place] [address] 69234- 4056 Jul, [place] [id number] [place] [address] 85459- 3792 Jun, [place] [address] 41511- 5999 Jun, Fatigue, unspecified type R53.83 ; History of renal cell carcinoma Z85.528 ; Chronic pancreatitis K86.1 ; Restless leg syndrome G25.81 ; Dark urine R82.99 and BMI 45.0-49.9, adult Z68.42 [place] [id number] [place] [address] 27788- 5431 Jun, [place] [address] 77205- 6510 Jun, [facility] [id number], [place] [address]- 5483 Jun, [facility] [address] 8079 Jun, [facility] [id number], [place] [address]- 7630 May, Chronic post-traumatic stress disorder (PTSD) F43.12 ; Moderate episode of recurrent major depressive disorder F33.1 ; Trichotillomania F63.3 and Generalized social phobia F40.11 [place] [id number], [place] [address]- 9007 May, [facility] [id number], [place] [address]- 8240 May, Chronic post-traumatic stress disorder (PTSD) F43.12 ; Moderate episode of recurrent major depressive disorder F33.1 ; Trichotillomania F63.3 and Generalized social phobia F40.11 [place] [id number], [place] [address]- 8777 May, Hyperlipidemia, mixed E78.2 ; Morbid (severe) obesity due to excess calories E66.01 ; Chronic post-traumatic stress disorder (PTSD) F43.12 ; Moderate episode of recurrent major depressive disorder F33.1 ; Trichotillomania F63.3 and Generalized social phobia F40.11 [facility] [id number], [place] [address]- 0885 Apr, [facility] [id number], [place] [address]- 6270 Apr, Hyperlipidemia, mixed E78.2 ; Morbid (severe) obesity due to excess calories E66.01 ; Chronic post-traumatic stress disorder (PTSD) F43.12 ; Moderate episode of recurrent major depressive disorder F33.1 ; Trichotillomania F63.3 and Generalized social phobia F40.11 [address] [address] [place] [address] 02133- 0313 Apr, Trichotillomania F63.3 ; Generalized social phobia F40.11 ; Chronic post-traumatic stress disorder (PTSD) F43.12 and Moderate episode of recurrent major depressive disorder F33.1 [place] [id number] [place] [address] 91525- 4676 Apr, [place] [id number] [place] [address] 39282- 1320 Apr, [place] [id number] [place] [address] 41766- 3637 Mar, Moderate episode of recurrent major depressive disorder F33.1 ; Trichotillomania F63.3 ; Chronic post-traumatic stress disorder (PTSD) F43.12 ; Generalized social phobia F40.11 and Restless leg syndrome G25.81 [place] [id number] [place] [address] 96937- 7637 Mar, [place] [id number] [place] [address] 51551- 5740 Mar, [place] [id number] [place] [address] 29629- 4390 Feb, Left kidney mass N28.89 [place] [id number] [place] [address] 53560- 8828 Jan, [place] [id number] [place] [address] 87928- 8562 Dec, Polydipsia R63.1 ; Chronic pancreatitis K86.1 and Fatigue, unspecified type R53.83 [place] [id number] [place] [address] 73826- 0942 Nov, [place] [id number] [place] [address] 91099- 4215 Nov, [place] [id number] [place] [address] 79779- 0814 Nov, Headache around the eyes R51 [facility] [address], [place] [address]- 3276 Nov, [facility] [id number] [place] [address] 90851- 5780 October, STD exposure Z20.2 [facility] [id number] [place] [address] 28740- 4759 October, STD exposure Z20.2 [facility] [id number] [place] [address] 38261- 4400 October, Chronic post-traumatic stress disorder (PTSD) F43.12 ; Generalized social phobia F40.11 ; Trichotillomania F63.3 and Restless leg syndrome G25.81 [facility] [id number] [place] [address] 04940- 5398 October, [facility] [id number] [place] [address] 28189- 4004 Sep, [facility] [id number] [place] [address] 70461- 8137 Aug, [facility] [id number] [place] [address] 23818- 0401 Aug, [facility] [id number] [place] [address] 32010- 3769 Aug, Neck mass R22.1 [facility] [id number] [place] [address] 88749- 9910 Aug, Atelectasis J98.11 [facility] [id number] [place] [address] 12139- 9547 28 Jul, 2016 Hyperlipidemia, mixed E78.2 ; Atypical pneumonia J18.9 and Neck mass R22.1 [facility] [id number] [place] [address] 30058- 3919 15 Jul, 2016 Hemoptysis R04.2 [facility] [id number] [place] [address] 70719- 6600 08 Jul, 2016 Acute non-recurrent pansinusitis J01.40 ; Hemoptysis R04.2 ; Polydipsia R63.1 and Malaise R53.81 [facility] [id number] [place] [address] 58837 -6195 May, Other viral agents as the cause of diseases classified elsewhere B97.89 and Acute upper respiratory infection, unspecified J06.9 [facility] [id number] [place] [address] 41879 -2178 Mar, Nausea R11.0 [facility] [address] [address]80 -9335 Dec, Hives L50.9 [id number] [place] [address] 22285- 0485 Dec, [facility] [id number] [place] [address] 04129 -0272 Dec, Cutaneous abscess of limb, unspecified L02.419 ; Cellulitis of unspecified part of limb L03.119 ; Encounter for incision and drainage procedure Z01.89 and Encounter for recheck of abscess following incision and drainage Z09 [facility] IN [address] [place] [address] 58483 -0628 Dec, Abscess of leg, right L02.415 [id number] [place] [address] 73054- 7605 Dec, Cellulitis of unspecified part of limb L03.119 and Cutaneous abscess of limb, unspecified L02.419 [id number] [place] [address] 19306- 9758 Dec, [id number] [place] [address] 78939- 6283 Dec, [facility] [address] 98644 -0739 Aug, [place] [id number] [place] [address] 03363- 8967 Aug, [facility] [address] 88265 -4179 04 Jul, 2015 Pain in unspecified wrist M25.539 and Back pain, thoracic M54.6 [facility] [id number] [place] [address] 56365 -3857 Jun, Strain of right wrist, initial encounter S66.911A [place] [id number] [place] [address] 42460- 6779 Jun, Chronic pancreatitis, unspecified pancreatitis type K86.1 ; Hirsuties L68.0 ; Morbid (severe) obesity due to excess calories E66.01 ; Chronic pancreatitis K86.1 and Asthma J45.909 [place] [address] 36144- 5134 May, [place] [id number] [place] [address] 25711- 1263 May, Hyperlipidemia, mixed E78.2 and Muscle spasm of back M62.830 [place] [id number] [place] [address] 65729- 4246 Apr, [place] [id number] [place] [address] 05953- 0344 Apr, Torticollis M43.6 [place] [address] 26632- 6125 09 Apr, 2015 Right-sided thoracic back pain M54.6 [place] [address] 82177- 6234 Mar, Rash R21 [place] [id number] [place] [address] 49650- 9266 Mar, [place] [address] 42936- 1492 Jan, [facility] [address], [place] [address]- 0340 Dec, [facility] [id number] [place] [address] 84866- 4299 Dec, Urinary frequency 788.41 and Nocturia more than twice per night 788.43 [facility] [id number] [place] [address] 60852- 8630 Nov, [facility] [id number] [place] [address] 87700- 8175 Nov, [facility] [id number] [place] [address] 48312- 4768 Nov, Abdominal pain 789.00 [facility] [id number] [place] [address] 63346- 3979 October, TDAP DX V06.1 [facility] [id number] [place] [address] 16537- 3679 October, [facility] [id number] [place] [address] 76989- 1387 October, Disturbance of skin sensation 782.0 ; Wrist pain, right 719.43 ; Hyperlipidemia 272.4 and Skin lesion of face 709.9 [facility] [id number] [place] [address] 97359- 3729 Sep, [facility] [id number] [place] [address] 38200- 4926 Sep, [facility] [id number] [place] [address] 63004- 1514 Aug, [facility] [id number] [place] [address] 16492- 3883 Aug, [facility] [id number] [place] [address] 07944- 0583 Aug, [facility] [id number] [place] [address] 93097- 0610 23 Aug, 2014 [facility] [place] [facility] [address] [id number] [place] [address]- 3905 16 Aug, 2014 [facility] [place] [facility] [address] [id number] [place] [address]- 8608 16 Aug, 2014 [facility] [place] [facility] [address] [id number] [place] [address]- 9678 14 Aug, 2014 [facility] [place] [facility] [address] [id number] [place] [address]- 4724 14 Aug, 2014 [facility] [place] [facility] [address] [id number] [place] [address]- 6023 11 Aug, 2014 [facility] [place] [facility] [address] [id number] [place] [address]- 6768 11 Aug, 2014 [facility] [place] [facility] [address] [id number] [place] [address]- 7271 04 Aug, 2014 [facility] [place] [facility] [address] [id number] [place] [address]- 1218 04 Aug, 2014 [facility] [place] [facility] [address] [id number] [place] [address]- 2905 03 Aug, 2014 [facility] [place] [facility] [address] [facility] [id number] [place] [address]- 5187 Aug, [facility] [place] [facility] [address] [id number] [place] [address]- 9230 Jul, 2014 [facility] [place] [facility] [address] [id number] [place] [address]- 6605 Jul, 2014 [facility] [place] [facility] [address] [id number] [place] [address]- 4244 Jul, 2014 [facility] [place] [facility] [address] [id number] [place] [address] Jul, 2014 [facility] [place] [facility] [address] [id number], [place] [address] 04 Jul, 2014 [facility] [place] [facility] [address] [id number] [place] [address] Jul, [facility] [place] [facility] [address] [id number] [place] [address] Jun, [facility] [place] [facility] [address] [id number] [place] [address] Jun, [facility] [place] [facility] [address] [id number] [place] [address] Jun, [facility] [place] [facility] [address] [id number] [place] [address] Jun, [facility] [place] [facility] [address] [id number] [place] [address] Jun, [facility] [place] [facility] [address] [id number] [place] [address] Jun, [facility] [place] [facility] [address] [id number] [place] [address] Jun, [facility] [place] [facility] [address] [id number] [place] [address] Jun, [facility] [place] [facility] [address] [id number] [place] [address] May, [facility] [place] [facility] [address] [id number] [place] [address] May, [facility] [place] [facility] [address] [id number], [place] [address] 18 May, 2014 [facility] [place] [facility] [address] [id number] [place] [address] 18 May, 2014 [facility] [place] [facility] [address] [id number] [place] [address] 15 May, 2014 [facility] [place] [facility] [address] [id number] [place] [address] 15 May, 2014 [facility] [place] [facility] [address] [id number] [place] [address] May, [facility] [place] [facility] [address] [id number] [place] [address] May, [facility] [place] [facility] [address] [id number] [place] [address] May, [facility] [place] [facility] [address] [id number] [place] [address] May, [facility] [place] [facility] [address] [id number] [place] [address] May, [facility] [place] [facility] [address] [id number] [place] [address] May, [facility] [place] [facility] [address] [id number] [place] [address] Apr, [facility] [place] [facility] [address] [id number] [place] [address] Apr, [facility] [place] [facility] [address] [id number] [place] [address] Apr, [facility] [place] [facility] [address] [id number] [place] [address] Apr, [facility] [place] [facility] [address] [id number] [place] [address] Apr, [facility] [place] [facility] [address] [id number] [place] [address] Apr, [facility] [place] [facility] [address] [id number] [place] [address] Apr, [facility] [place] [facility] [address] [id number] [place] [address] Apr, [facility] [place] [facility] [address] [id number] [place] [address] 3984 Apr, [facility] [place] [facility] [address] [id number] [place] [address] 9[address] Apr, [facility] [place] [facility] [address] [id number] [place] [address] 6148 Apr, [facility] [place] [facility] [address] [id number] [place] [address]- 6903 Apr, [facility] [place] [facility] [address] [id number] [place] [address] 2450 Mar, [facility] [place] [facility] [address] [id number] [place] [address]- 2643 Mar, [facility] [place] [facility] [address] [id number] [place] [address] 7309 Mar, [facility] [place] [facility] [address] [id number] [place] [address]- 3185 Mar, [facility] [place] [facility] [address] [id number] [place] [address]- 8033 Feb, [facility] [place] [facility] [address] [id number] [place] [address]- 9776 10 Feb, 2013 [facility] [place] [facility] [address] [id number] [place] [address]- 3488 05 Feb, 2013 [facility] [place] [facility] [address] [id number] [place] [address]- 2720 05 Feb, 2014 [facility] [place] [facility] [address] [id number] [place] [address]- 1824 05 Feb, 2014 [facility] [place] [facility] [address] [id number] [place] [address]- 2540 Feb, 2013 [facility] [place] [facility] [address] [id number] [place] [address]- 4798 Jan, [facility] [place] [facility] [address] [id number] [place] [address]- 7924 Jan, [facility] [place] [facility] [address] [id number] [place] [address]- 7450 Jan, [facility] [place] [facility] [address] [id number] [place] [address]- 2295 Jan, [facility] [place] [facility] [address] [id number] [place] [address]- 5938 Jan, [facility] [place] [facility] [address] [id number] [place] [address]- 0083 Jan, [facility] [place] [facility] [address] [id number] [place] [address]- 8938 Jan, [facility] [place] [facility] [address] [id number] [place] [address]- 6993 Jan, [facility] [place] [facility] [address] [id number] [place] [address]- 4619 Jan, [facility] [place] [facility] [address] [id number] [place] [address]- 3687 Jan, [facility] [place] [facility] [address] [id number] [place] [address]- 4132 Jan, [facility] [place] [facility] [address] [id number] [place] [address]- 1149 Jan, [facility] [place] [facility] [address] [id number] [place] [address]- 6319 Jan, [facility] [place] [facility] [address] [id number] [place] [address]- 6163 Jan, [facility] [place] [facility] [address] [id number] [place] [address]- 9052 Dec, [facility] [place] [facility] [address] [id number] [place] [address]- 8732 Dec, [facility] [place] [facility] [address] [id number] [place] [address]- 0282 Dec, [facility] [place] [facility] [address] [id number] [place] [address]- 7033 Dec, [facility] [place] [facility] [address] [id number] [place] [address]- 2865 Nov, [facility] [place] [facility] [address] [id number] [place] [address]- 8205 Nov, [facility] [place] [facility] [address] [id number] [place] [address] 1393 Nov, [facility] [place] [facility] [address] [id number] [place] [address]- 4443 Nov, [facility] [place] [facility] [address] [id number] [place] [address]- 2439 Nov, [facility] [place] [facility] [address] [id number] [place] [address]- 7916 October, [facility] [place] [facility] [address] [id number] [place] [address]- 7985 October, [facility] [place] [facility] [address] [id number] [place] [address]- 2599 October, [facility] [place] [facility] [address] [id number] [place] [address]- 1029 October, [facility] [place] [facility] [address] [id number] [place] [address]- 8963 October, [facility] [place] [facility] [address] [id number] [place] [address]- 6302 October, [facility] [place] [facility] [address] [id number] [place] [address]- 6479 October, [facility] [place] [facility] [address] [id number] [place] [address]- 2616 October, [facility] [place] [facility] [address] [id number] [place] [address]- 6742 October, [facility] [place] [facility] [address] [id number] [place] [address]- 0606 October, [facility] [place] [facility] [address] [id number] [place] [address]- 3026 October, [facility] [place] [facility] [address] [id number] [place] [address]- 8425 October, [facility] [place] [facility] [address] [id number] [place] [address]- 8457 October, [facility] [place] [facility] [address] [id number] [place] [address]- 7230 October, [facility] [place] [facility] [address] [id number] [place] [address]- 2708 Sep, [facility] [place] [facility] [address] [id number] [place] [address]- 0204 Sep, [facility] [place] [facility] [address] [id number] [place] [address]- 8345 Sep, [facility] [place] [facility] [address] [id number] [place] [address]- 2165 Sep, [facility] [place] [facility] [address] [id number] [place] [address]- 6496 Sep, [facility] [place] [facility] [address] [id number] [place] [address]- 9429 Sep, [facility] [place] [facility] [address] [id number] [place] [address]- 7032 Sep, [facility] [place] [facility] [address] [id number] [place] [address]- 9382 Sep, [facility] [place] [facility] [address] [id number] [place] [address]- 8251 Sep, [facility] [place] [facility] [address] [id number] [place] [address]- 4246 Sep, [facility] [place] [facility] [address] [id number] [place] [address]- 8224 Sep, [facility] [place] [facility] [address] [id number] [place] [address]- 7448 Sep, [facility] [place] [facility] [address] [id number] [place] [address]- 3041 Sep, [facility] [place] [facility] [address] [id number] [place] [address]- 5774 Sep, [facility] [place] [facility] [address] [id number] [place] [address]- 2221 Sep, [facility] [place] [facility] [address] [id number] [place] [address]- 1215 Aug, [facility] [place] [facility] [address] [id number] [place] [address]- 6175 Aug, [facility] [place] [facility] [address] [id number] [place] [address]- 6938 Aug, [facility] [place] [facility] [address] [id number] [place] [address]- 9859 Aug, [facility] [place] [facility] [address] [id number] [place] [address]- 6153 Jul, [facility] [place] [facility] [address] [id number] [place] [address]- 8911 Jul, [facility] [place] [facility] [address] [id number] [place] [address]- 7656 Jul, [facility] [place] [facility] [address] [id number] [place] [address]- 3246 Jul, [facility] [place] [facility] [address] [id number] [place] [address]- 3403 Jun, [facility] [place] [facility] [address] [id number], [place] [address]- 7197 Jun, [facility] [place] [facility] [address] [id number], [place] [address]- 3869 Jun, [facility] [place] [facility] [address] [id number] [place] [address]- 0525 Jun, [facility] [place] [facility] [address] [id number] [place] [address]- 4353 Jun, [facility] [place] [facility] [address] [id number] [place] [address]- 9624 Jun, [facility] [place] [facility] [address] [id number] [place] [address]- 0746 08 Jun, 2013 [facility] [address] [id number] [place] [address]- 2214 08 Jun, 2013 [facility] [address] [id number] [place] [address]- 9120 20 May, 2013 [facility] [address] [id number] [place] [address]- 8554 20 May, 2013 [facility] [address] [id number] [place] [address]- 2893 18 May, 2013 [facility] [address] [id number] [place] [address]- 5473 18 May, 2013 [facility] [address] [facility] [id number] [place] [address]- 2011 17 May, 2013 [facility] [address] [id number] [place] [id number] 17 May, 2013 [facility] [address] [id number] [place] [address] 17 May, 2013 [facility] [address] [id number] [place] [address] 17 May, 2013 [facility] [address] [id number] [place] [address]- 4142 16 May, 2013 [facility] [address] [id number] [place] [address]- 7156 16 May, 2013 [facility] [address] [id number] [place] [address]- 2482 14 May, 2013 [facility] [address] [id number] [place] [address]- 6138 14 May, 2013 [facility] [address] [id number] [place] [address]- 6684 13 May, 2013 [facility] [address] [id number] [place] [address]- 4828 May, [facility] [address] [id number] [place] [address]- 4246 May, [facility] [place] [facility] [address] [id number] [place] [address]- 3608 May, [facility] [place] [facility] [address] [id number] [place] May, [facility] [place] [facility] [address] [id number] [place] [address]- 3168 May, [facility] [place] [facility] [address] [id number] [place] [address]- 6818 Apr, [facility] [place] [facility] [address] [id number] [place] [address]- 6177 Apr, [facility] [place] [facility] [address] [id number] [place] [address]- 4169 Apr, [facility] [place] [facility] [address] [id number] [place] [address]- 5815 Apr, [facility] [place] [facility] [address] [id number] [place] [address]- 8486 Aug, [facility] [place] [facility] [address] [id number], [place] [address]- 5797 Aug, [facility] [place] [facility] [address] [id number], [place] [address]- 3154 Aug, [facility] [place] [facility] [address] [id number], [place] [address]- 8976 Aug, [facility] [place] [facility] [address] [id number] [place] [address]- 5532 Jul, [facility] [place] [facility] [address] [id number], [place] [address]- 7586 Jun, [facility] [place] [facility] [address] [id number], [place] [address]- 3836 Jun, [facility] [place] [facility] [address] [id number], [place] [address]- 8073 Jun, [facility] [address] [id number] [place] [address]- 2208 Jun, [facility] [place] [facility] [address] [facility] [id number] [place] [address]- 7334 May, [facility] [address] [facility] [id number] [place] [address]- 3908 May, [facility] [place] [facility] [address] [id number] [place] [address]- 6248 May, [facility] [address] [facility] [id number] [place] [address]- 2470 May, [facility] [place] [facility] [address] [facility] [id number] [place] [address]- 7535 May, [facility] [id number], [place] [address]- 8918 May, [facility] [place] [facility] [address] [id number] [place] [address]- 0107 May, [facility] [place] [facility] [address] [id number] [place] [address]- 3157 Apr, [facility] [place] [facility] [address] [id number] [place] [address]- 7307 Apr, [facility] [place] [facility] [address] [id number], [place] [address]- 3795 Apr, [facility] [place] [facility] [address] [id number], [place] [address]- 4919 Apr, [facility] [place] [facility] [address] [id number] [place] [address]- 2327 Apr, [facility] [place] [facility] [address] [facility] [id number], [place] [address]- 5276 Apr, [facility] [place] [facility] [address] [id number], [place] [address]- 7897 Apr, [facility] [place] [facility] [address] [id number] [place] [address]- 8009 Mar, [facility] [place] [facility] [address] [id number] [place] [address]- 9843 Mar, [facility] [place] [facility] [address] [id number] [place] [address]- 4334 Mar, [facility] [place] [facility] [address] [id number] [place] [address]- 8855 Mar, [facility] [place] [facility] [address] [id number] [place] Mar, [facility] [place] [facility] [address] [id number] [place] 6628 Mar, [facility] [place] [facility] [address] [id number] [place] 9393 Mar, [facility] [place] [facility] [address] [id number] [place] [address]- 0959 Mar, [facility] [place] [facility] [address] [id number] [place] [address]- 7336 Mar, [facility] [place] [facility] [address] [id number] [place] [address]- 3609 Mar, [facility] [place] [facility] [address] [id number] [place] [address]- 7527 Mar, [facility] [place] [facility] [address] [id number] [place] [address]- 3207 Mar, [facility] [place] [facility] [address] [id number] [place] [address]- 1577 Feb, [facility] [place] [facility] [address] [id number] [place] [address]- 8763 Jan, [facility] [place] [facility] [address] [id number] [place] [address]- 9403 14 Jan, 2012 [facility] [place] [facility] [address] [id number] [place] [address]- 6237 Jan, [facility] [place] [facility] [address] [id number] [place] [address]- 0744 Jan, [facility] [place] [facility] [address] [id number] [place] [address]- 2862 Jan, [facility] [place] [facility] [address] [id number] [place] [address]- 4393 Dec, [facility] [place] [facility] [address] [id number] [place] [address]- 1052 Dec, [facility] [place] [facility] [address] [id number] [place] [address]- 3943 Nov, [facility] [place] [facility] [address] [id number] [place] [address]- 4711 Nov, [facility] [place] [facility] [address] [id number] [place] [address]- 5344 Nov, [facility] [place] [facility] [address] [id number] [place] [address]- 9547 October, [facility] [place] [facility] [address] [id number] [place] [address]- 0246 October, [facility] [place] [facility] [address] [id number] [place] [address]- 1460 October, [facility] [place] [facility] [address] [id number] [place] [address]- 7396 October, [facility] [place] [facility] [address] [id number] [place] [address]- 3273 October, [facility] [place] [facility] [address] [id number] [place] [address]- 2841 October, [facility] [place] [facility] [address] [id number] [place] [address]- 5225 October, [facility] [place] [facility] [address] [id number] [place] [address]- 9508 Sep, [facility] [place] [facility] [address] [id number] [place] [address]- 8544 26 Sep, 2011 [facility] [address] [id number] [place] [address]- 2433 26 Sep, 2011 [facility] [place] [facility] [address] [id number] [place] [address]- 2250 25 Sep, 2011 [facility] [address] [id number] [place] [address]- 7527 24 Sep, 2011 [facility] [place] [facility] [address] [id number] [place] [address]- 8920 19 Sep, 2011 [facility] [address] [id number] [place] [address]- 3239 17 Sep, 2011 [facility] [place] [facility] [address] [id number] [place] [address]- 2700 16 Sep, 2011 [facility] [address] [id number] [place] [address]- 2770 16 Sep, 2011 [facility] [place] [facility] [address] [id number] [place] [address]- 0953 14 Sep, 2011 [facility] [place] [facility] [address] [id number] [place] [address]- 9615 13 Sep, 2011 [facility] [address] [id number] [place] [address]- 3881 10 Sep, 2011 [facility] [place] [facility] [address] [id number] [place] [address]- 3968 09 Sep, 2011 [facility] [place] [facility] [address] [id number] [place] [address]- 1635 27 Aug, 2011 [facility] [place] [facility] [address] [id number] [place] [address]- 2340 12 Aug, 2011 [facility] [place] [facility] [address] [id number] [place] [address]- 1246 08 Aug, 2011 [facility] [place] [facility] [address] [id number] [place] [address]- 3910 Aug, [facility] [place] [facility] [address] [id number] [place] [address]- 7992 28 Jul, 2011 [facility] [place] [facility] [address] [id number] [place] [address]- 2816 22 Jul, 2011 [facility] [place] [facility] [address] [id number] [place] [address]- 6816 16 Jul, 2011 [facility] [place] [facility] [address] [id number] [place] [address]- 1806 15 Jul, 2011 [facility] [place] [facility] [address] [id number] [place] [address]- 4427 14 Jul, 2011 [facility] [place] [facility] [address] [id number] [place] [address]- 4706 10 Jul, 2011 [facility] [place] [facility] [address] [id number] [place] [address]- 2171 Jun, [facility] [place] [facility] [address] [id number] [place] [address]- 2346 Jun, [facility] [place] [facility] [address] [id number] [place] [address]- 9409 Jun, [facility] [place] [facility] [address] [id number] [place] [address]- 0890 Jun, [facility] [place] [facility] [address] [id number] [place] [address]- 0818 Jun, [facility] [place] [facility] [address] [id number] [place] [address] May, [facility] [place] [facility] [address] [id number] [place] [address] May, [facility] [place] [facility] [address] [id number] [place] [address] May, [facility] [place] [facility] [address] [id number] [place] [address] May, [facility] [place] [facility] [address] [id number] [place] [address] 12 May, 2011 [facility] [place] [facility] [address] [id number] [place] [address] 07 May, 2011 [facility] [place] [facility] [address] [id number] [place] [address] 05 May, 2011 [facility] [place] [facility] [address] [id number] [place] [address] Apr, [facility] [place] [facility] [address] [id number] [place] [address] 15 Apr, 2011 [facility] [place] [facility] [address] [id number] [place] [address] Apr, [facility] [place] [facility] [address] [id number] [place] [address] Apr, [facility] [place] [facility] [address] [id number] [place] [address] Apr, [facility] [place] [facility] [address] [id number] [place] [address] Apr, [facility] [place] [facility] [address] [id number] [place] [address] Mar, [facility] [place] [facility] [address] [id number] [place] [address] Mar, [facility] [place] [facility] [address] [id number] [place] [address] Mar, [facility] [place] [facility] [address] [id number] [place] [address] Mar, [facility] [place] [facility] [address] [id number] [place] [address] Jan, [facility] [place] [facility] [address] [id number] [place] [address] Dec, [facility] [place] [facility] [address] [id number] [place] [address] Dec, [facility] [place] [facility] [address] [id number] [place] [address] October, [facility] [place] [facility] [address] [id number] [place] [address] Sep, [facility] [place] [facility] [address] [id number] [place] [address] 14 Sep, 2010 [facility] [place] [facility] [address] [id number] [place] [address]- [address] 17 Jul, 2010 [facility] [place] [facility] [address] [id number] [place] [address] 16 Jul, 2010 [facility] [place] [facility] [address] [id number] [place] [address] May, [facility] [place] [facility] [address] [id number] [place] [address] May, [facility] [place] [facility] [address] [id number] [place] [address] May, [facility] [place] [facility] [address] [id number] [place] [address] May, [facility] [place] [facility] [address] [id number] [place] [address] Apr, [facility] [place] [facility] [address] [id number] [place] [address] Apr, [facility] [place] [facility] [address] [id number] [place] [address] Apr, [facility] [place] [facility] [address] [id number] [place] [address] Apr, [facility] [place] [facility] [address] [id number] [place] [address] Apr, [facility] [place] [facility] [address] [id number] [place] [address] Mar, [facility] [place] [facility] [address] [id number], [place] [address] 14 Mar, 2010 [facility] [place] [facility] [address] [id number] [place] [address] 13 Mar, 2010 [facility] [place] [facility] [address] [id number], [place] [address] 12 Mar, 2010 [facility] [place] [facility] [address] [id number] [place] [address] 20 Jan, 2010 [facility] [place] [facility] [address] [id number], [place] [address] 15 Dec, 2009 [facility] [place] [facility] [address] [id number] [place] [address] 10 Sep, 2009 [facility] [place] [facility] [address] [id number] [place] [address]- [address] 08 May, 2009 [facility] [place] [facility] [address] [id number], [place] [address] May, [facility] [place] [facility] [address] [id number], [place] [address] 02 May, 2009 [facility] [place] [facility] [address] [id number], [place] [address] 17 Apr, 2009 [facility] [place] [facility] [address] [id number], [place] [address] 17 Apr, 2009 [facility] [place] [facility] [address] [id number], [place] [address] 10 Apr, 2009 [facility] [place] [facility] [address] [id number], [place] [address] 10 Apr, 2009 [facility] [place] [facility] [address] [id number], [place] [address] 09 Apr, 2009 [facility] [place] [facility] [address] [id number], [place] [address] 15 Mar, 2009 [facility] [place] [facility] [address] [id number], [place] [address] 15 Mar, 2009 [facility] [place] [facility] [address] [facility] [id number] [place] [id number] Jul, IMMUNIZATIONS No Known Immunizations SOCIAL HISTORY [...] surgery the January before. 03/2018 Hospitalization History [facility]ulitis-[facility] 12/20/15 Hospitalization History [facility] [place] [facility]- Abd pain 03/07/2017 Hospitalization History ED [place]- Abd pain 03/14/2017 Hospitalization History ED [place]- No bowel movement, rash 04/13/2017 Hospitalization History ED [place]- Abd pain r/t kidney surgery on 04/17/2017 Hospitalization History ED [place]- Abd pain r/t kidney surgery on 04/18/2017 Hospitalization History ED [place]- Lower abd pain 04/30/2017 Hospitalization History ED [place]- Cannot urinate 05/30/2017 Hospitalization History [facility] [place]- Pancreatitis Sx 06/29/2017 Hospitalization History [facility] [place]- Stomach pain 07/22/2017 Hospitalization History [facility] [place]- Left side pain 08/12/2017 Hospitalization History [facility]- Incision site infection 08/30/2017 Hospitalization History [facility]- Post Op Seroma/Hematoma Left Abdomen. Discharged 09/04/17- Dr Daniel 09/02/2017 Hospitalization History [facility]- Right shoulder and back pain 2017 Hospitalization History [facility]- Shoulder/Back pain 11/11/2017 Hospitalization History [facility]- Right shoulder blade pain 12/04/2017 Hospitalization History [facility]- C-Diff 12/13/2017 Hospitalization History C diff et MRSA 12/27/2017
--- OUTSIDE RECORDS SUMMARY | 2018-06-17 13:08 | XMS REPORT ---
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 Operator Automatic Name Role Phone SAICORTNEY KOENIGHANY Unavailable PROBLEMS Type Condition ICD9-CM Code GVR52-PW Code Onset Dates Condition Status SNOMED Code Problem Atelectasis J98.11 Active 25491064 Problem Restless leg syndrome G25.81 Active 44321313 Problem Trichotillomania F63.3 Active 50099718 Problem Primary osteoarthritis of right knee M17.11 Active [id number] Problem Intestinal malabsorption, unspecified K90.9 Active 97867356 Problem Chronic post-traumatic stress disorder (PTSD) F43.12 Active 335571939 Problem Generalized social phobia F40.11 Active 15999815 Problem Chronic fatigue R53.82 Active 20529588 Problem Moderate episode of recurrent major depressive disorder F33.1 Active 858429250 Problem Chronic tension-type headache, intractable G44.221 Active 355034089 Problem Morbid (severe) obesity due to excess calories E66.01 Active 968524351 Problem Nodule of left lung R91.1 Active 549703938 Problem History of renal cell carcinoma Z85.528 Active 721003963 Problem FH: polycystic ovary Z84.2 Active 494324852 Problem Chronic pancreatitis K86.1 Active 859273212 Problem Hyperlipidemia, mixed E78.2 Active 729776692 Problem Asthma J45.909 Active 537195237 Problem Hirsuties L68.0 Active 563936070 Problem Polydipsia R63.1 Active 91732516 ALLERGIES No Information ENCOUNTERS Encounter Location Date Diagnosis [facility] [id number], [place] [address] Jun, [facility] [address] [facility] [id number], [place] [address] May, [facility] [address], [place] [address] May, [place] [id number] [place] [address] 53890- 9824 May, [place] [id number] [place] [address] 01533- 3821 Apr, Generalized social phobia F40.11 ; Trichotillomania F63.3 ; Chronic post-traumatic stress disorder (PTSD) F43.12 and BMI 45.0-49.9, adult Z68.42 [place] [id number] [place] [address] 67985- 5184 Apr, [place] [id number] [place] [address] 19059- 8298 Apr, Chronic tension-type headache, intractable G44.221 [place] [id number] [place] [address] 38388- 8785 Apr, [facility] [id number] [place] [address] 25767 -8228 Mar, [facility] [id number] [place] [address] 97218 -8733 Mar, BMI 45.0-49.9, adult Z68.42 and Pimples R23.8 [place] [id number] [place] [address] 29283- 0434 Mar, [place] [id number] [place] [address] 22245- 3885 Mar, [place] [id number] [place] [address] 74039- 5881 Mar, Decreased urination R34 ; Chronic fatigue R53.82 ; Peripheral edema R60.9 ; Diarrhea, unspecified type R19.7 ; Non-intractable vomiting with nausea, unspecified vomiting type R11.2 ; BMI 45.0-49.9, adult Z68.42 and Chronic post-traumatic stress disorder (PTSD) F43.12 [place] [id number] [place] [address] 47884- 4757 Mar, Intestinal malabsorption, unspecified K90.9 ; Diarrhea, unspecified R19.7 ; Urinary urgency R39.15 ; Rectal bleeding K62.5 and Decreased urine output R34 [facility] [id number] [place] [address] 14269- 3021 Mar, Decreased urine output R34 [facility] [id number] [place] [address] 65537- 3621 Mar, Rectal bleeding K62.5 [facility] [id number] [place] [address] 21929- 1005 Mar, Rectal bleeding K62.5 [facility] [id number] [place] [address] 67532- 8571 Mar, Urinary urgency R39.15 [place] [id number] [place] [address] 20047- 7661 Mar, Urinary urgency R39.15 [facility] [id number] [place] [address] 51638- 4330 Mar, Primary osteoarthritis of right knee M17.11 and BMI 45.0- 49.9, adult Z68.42 [place] [id number] [place] [address] 64879- 4707 Mar, [facility] [id number] [place] [address] 44782- 1668 Feb, Left upper arm pain M79.622 [facility] [id number] [place] [address] 66753- 4599 Feb, [facility] [id number] [place] [address] 95884- 0632 Jan, Acute pain of right knee M25.561 ; Right upper quadrant abdominal pain R10.11 and BMI 45.0-49.9, adult Z68.42 [place] [id number] [place] [address] 85862- 5309 Jan, [facility] [address] [address] 7103 Jan, [facility] [id number] [place] [address] 69663- 1191 Dec, [facility] [id number] [place] [address] 20463- 3217 Dec, Intestinal malabsorption, unspecified K90.9 and Diarrhea, unspecified R19.7 [facility] [id number] [place] [address] 89092- 7260 Dec, [facility] [id number] [place] [address] 13118- 0233 Dec, Strep throat J02.0 ; Intestinal malabsorption, unspecified K90.9 ; Diarrhea, unspecified R19.7 ; Postoperative seroma involving digestive system after non-digestive system procedure K91.873 ; Hyperlipidemia, mixed E78.2 and BMI 45.0-49.9, adult Z68.42 [facility] [id number] [place] [address] 84514- 5344 Dec, [facility] [id number] [place] [address] 03359- 3759 Dec, Nausea R11.0 [facility] [address] [address] 8277 Dec, [facility] [address], [place] [address] Dec, Sore throat J02.9 ; Strep throat J02.0 and BMI 45.0-49.9, adult Z68.42 [facility] [id number] [place] [address] 30870- 7624 Dec, [facility] [address] [address]- 7479 Dec, [facility] [id number], [place] [address] 3054 Dec, [facility] [address], [place] [address]- 2518 Dec, [facility] [address], [place] [address]- 1620 Dec, [facility] [id number] [place] [address] 20632- 7869 Dec, [facility] [id number] [place] [address] 62238- 1736 Dec, [facility] [id number] [place] [address] 08212- 0980 Dec, [facility] [id number] [place] [address] 63867- 3308 Dec, Clostridium difficile colitis A04.72 ; Intractable vomiting with nausea, unspecified vomiting type R11.2 and BMI 45.0-49.9, adult Z68.42 [facility] [address], [place] [address]- 8997 Dec, [facility] [id number] [place] [address] 10035- 2323 Nov, [facility] [address], [place] [address]- 1311 Nov, [facility] [address], [place] [address]- 3643 Nov, [facility] [address], [place] [address]- 8103 Nov, [facility] [address], [place] [address] Nov, [facility] [address], [place] [address]- 8461 Nov, Hyperlipidemia, mixed E78.2 [facility] [id number] [place] [address] 27232 -0558 Nov, Acute suppurative otitis media of right ear without spontaneous rupture of tympanic membrane, recurrence not specified H66.001 and BMI 45.0-49.9, adult Z68.42 [place] [id number] [place] [address] 82975- 6948 Nov, Hyperlipidemia, mixed E78.2 [place] [id number] [place] [address] 91827- 3406 Nov, [place] [id number] [place] [address] 37675- 0723 Nov, [place] [id number] [place] [address] 60544- 0537 Nov, Nodule of left lung R91.1 [id number] [place] [address] 16986- 7478 Nov, Medicare annual wellness visit, initial Z00.00 [...] adult Z68.42 and Encounter for immunization Z23 [place] [id number] [place] [address] 99939- 2818 October, [place] [id number] [place] [address] 64452- 8936 October, Nodule of left lung R91.1 [place] [address] [id number] [place] [address] 79454- 0887 October, Nodule of left lung R91.1 [place] [id number] [place] [address] 46653- 4040 17 May, 2018 Recurrent major depressive disorder, in partial remission F33.41 ; Restless leg syndrome G25.81 ; Generalized social phobia F40.11 ; Chronic post-traumatic stress disorder (PTSD) F43.12 ; BMI 45.0-49.9, adult Z68.42 and Trichotillomania F63.3 [place] [id number] [place] [address] 58253- 0598 October, [place] [address] 55349- 0975 Sep, Chronic fatigue R53.82 and BMI 45.0-49.9, adult Z68.42 [place] [address] 11823- 3869 Aug, [place] [address] 96922- 3453 Jul, Restless leg syndrome G25.81 and B12 deficiency E53.8 [place] [address] 44047- 5623 Jul, [place] [address] 83018- 1366 Jul, [place] [address] 08303- 5120 Jun, [place] [id number] [place] [address] 28459- 8275 Jun, Fatigue, unspecified type R53.83 ; History of renal cell carcinoma Z85.528 ; Chronic pancreatitis K86.1 ; Restless leg syndrome G25.81 ; Dark urine R82.99 and BMI 45.0-49.9, adult Z68.42 [place] [address] 19748- 4745 Jun, [place] [address] 71964- 7945 Jun, [place] [address] 18525271- 5829 Jun, [place] [address], [place] [address]- 9706 Jun, [place] [address] 0479 May, Chronic post-traumatic stress disorder (PTSD) F43.12 ; Moderate episode of recurrent major depressive disorder F33.1 ; Trichotillomania F63.3 and Generalized social phobia F40.11 [place] [id number] [address]- 8109 May, [place] [id number] [place] [address] 93216- 5586 May, Chronic post-traumatic stress disorder (PTSD) F43.12 ; Moderate episode of recurrent major depressive disorder F33.1 ; Trichotillomania F63.3 and Generalized social phobia F40.11 [place] [address], [place] [address]- 2458 May, Hyperlipidemia, mixed E78.2 ; Morbid (severe) obesity due to excess calories E66.01 ; Chronic post-traumatic stress disorder (PTSD) F43.12 ; Moderate episode of recurrent major depressive disorder F33.1 ; Trichotillomania F63.3 and Generalized social phobia F40.11 [place] [id number] [address]- 0662 Apr, [place] [id number] [place] [address] 95363- 8500 Apr, Hyperlipidemia, mixed E78.2 ; Morbid (severe) obesity due to excess calories E66.01 ; Chronic post-traumatic stress disorder (PTSD) F43.12 ; Moderate episode of recurrent major depressive disorder F33.1 ; Trichotillomania F63.3 and Generalized social phobia F40.11 [place] [id number] [address]- 9383 Apr, Trichotillomania F63.3 ; Generalized social phobia F40.11 ; Chronic post-traumatic stress disorder (PTSD) F43.12 and Moderate episode of recurrent major depressive disorder F33.1 [place] [id number] [place] [address] 31180- 4476 Apr, [place] [id number] [place] [address] 40912- 5315 Apr, [place] [id number] [place] [address] 28670- 3438 Mar, Moderate episode of recurrent major depressive disorder F33.1 ; Trichotillomania F63.3 ; Chronic post-traumatic stress disorder (PTSD) F43.12 ; Generalized social phobia F40.11 and Restless leg syndrome G25.81 [place] [id number] [place] [address] 38866- 6124 Mar, [place] [address] 34037- 7592 Mar, [place] [id number] [place] [address] 53360- 6297 Feb, Left kidney mass N28.89 [place] [id number] [place] [address] 15304- 0146 Jan, [place] [id number] [place] [address] 85260- 3236 Dec, Polydipsia R63.1 ; Chronic pancreatitis K86.1 and Fatigue, unspecified type R53.83 [place] [id number] [place] [address] 14637- 0238 Nov, [place] [address] 90618- 2417 13 Nov, 2016 [place] [id number] [place] [address] 70460- 0726 12 Nov, 2016 Headache around the eyes R51 [place] [id number] [place] [address] 50521- 5550 Nov, [facility] [id number] [place] [address] 19796- 4666 October, STD exposure Z20.2 [facility] [id number] [place] [address] 48503- 6030 October, STD exposure Z20.2 [facility] [id number] [place] [address] 03569- 1961 October, Chronic post-traumatic stress disorder (PTSD) F43.12 ; Generalized social phobia F40.11 ; Trichotillomania F63.3 and Restless leg syndrome G25.81 [place] [address] 80535- 7634 October, [facility] [id number] [place] [address] 24290- 6521 Sep, [facility] [address] 13933- 2016 Aug, [facility] [id number] [place] [address] 59511- 6812 Aug, [place] [id number] [place] [address] 02212- 7103 Aug, Neck mass R22.1 [place] [id number] [place] [address] 27414- 0447 Aug, Atelectasis J98.11 [place] [id number] [place] [address] 85940- 1270 28 Jul, 2016 Hyperlipidemia, mixed E78.2 ; Atypical pneumonia J18.9 and Neck mass R22.1 [place] [id number] [place] [address] 59915- 2681 15 Jul, 2016 Hemoptysis R04.2 [facility] [id number] [place] [address] 74375- 2502 08 Jul, 2016 Acute non-recurrent pansinusitis J01.40 ; Hemoptysis R04.2 ; Polydipsia R63.1 and Malaise R53.81 [facility] [id number] [place] [address] 29486 -1497 May, Other viral agents as the cause of diseases classified elsewhere B97.89 and Acute upper respiratory infection, unspecified J06.9 [facility] [address] 77457 -5224 Mar, Nausea R11.0 [facility] [address] 32295 -1567 Dec, Hives L50.[address] 01809- 8091 Dec, [facility] [id number] [place] [address] 29318 -9606 Dec, Cutaneous abscess of limb, unspecified L02.419 ; Cellulitis of unspecified part of limb L03.119 ; Encounter for incision and drainage procedure Z01.89 and Encounter for recheck of abscess following incision and drainage Z09 [facility] [id number] [place] [address] 92114 -7990 Dec, Abscess of leg, right L02.415 [place] [id number] [place] [address] 68062- 7433 Dec, Cellulitis of unspecified part of limb L03.119 and Cutaneous abscess of limb, unspecified L02.419 [place] [id number] [place] [address] 06346- 0238 Dec, [place] [id number] [place] [address] 16202- 7050 Dec, [facility] [place] [id number] [place] [address] 67436 -0585 Aug, [place] [address] 83445- 5918 Aug, [facility] [id number] [place] [address] 61307 -6866 04 Jul, 2015 Pain in unspecified wrist M25.539 and Back pain, thoracic M54.6 [facility] [id number] [place] [address] 95443 -3540 13 Jun, 2015 Strain of right wrist, initial encounter S66.911A [place] [address] 70406- 2073 Jun, Chronic pancreatitis, unspecified pancreatitis type K86.1 ; Hirsuties L68.0 ; Morbid (severe) obesity due to excess calories E66.01 ; Chronic pancreatitis K86.1 and Asthma J45.909 [place] [id number] [place] [address] 65116- 7102 May, [place] [address] 16174- 7167 May, Hyperlipidemia, mixed E78.2 and Muscle spasm of back M62.830 [place] [id number] [place] [address] 35374- 7291 Apr, [place] [id number] [place] [address] 17933- 6425 Apr, Torticollis M43.6 [place] [id number] [place] [address] 81016- 3894 Apr, Right-sided thoracic back pain M54.6 [place] [id number] [place] [address] 01519- 4431 Mar, Rash R21 [place] [address] 56220- 8742 Mar, [place] [id number] [place] [address] 94759- 9147 Jan, [place] [address] 96585- 1123 Dec, [facility] [address], [place] [address]- 9117 Dec, Urinary frequency 788.41 and Nocturia more than twice per night 788.43 [facility] [id number] [address]- 1894 Nov, [facility] [id number] [place] [address] 62619- 7688 Nov, [facility] [id number] [place] [address] 31364- 9190 Nov, Abdominal pain 789.00 [facility] [id number] [place] [address] 90369- 3495 October, TDAP DX V06.1 [facility] [id number] [place] [address] 79968- 1008 October, [facility] [id number] [place] [address] 88628- 8018 October, Disturbance of skin sensation 782.0 ; Wrist pain, right 719.43 ; Hyperlipidemia 272.4 and Skin lesion of face 709.9 [facility] [id number] [place] [address] 38811- 5276 Sep, [facility] [id number] [place] [address] 15115- 1974 Sep, [facility] [id number] [place] [address] 26908- 9164 Aug, [facility] [id number] [place] [address] 06617- 7199 Aug, [facility] [id number] [place] [address] 17381- 7326 Aug, [facility] [address], [place] [address]- 0609 Aug, [facility] [id number] [place] [address] 67979- 6206 16 Aug, 2014 [facility] [place] [facility] [address] [id number] [place] [address]- 6669 16 Aug, 2014 [facility] [place] [facility] [address] [id number] [place] [address]- 5004 14 Aug, 2014 [facility] [place] [facility] [address] [id number] [place] [address] 14 Aug, 2014 [facility] [place] [facility] [address] [id number] [place] [address] 11 Aug, 2014 [facility] [place] [facility] [address] [id number] [place] [address] 11 Aug, 2014 [facility] [place] [facility] [address] [facility] [id number] [place] [address] 84[address] 04 Aug, 2014 [facility] [place] [facility] [address] [facility] [id number] [place] [address] 04 Aug, 2014 [facility] [place] [facility] [address] [facility] [id number] [place] [address] Aug, [facility] [place] [facility] [address] [id number] [place] [address] Aug, [facility] [place] [facility] [address] [facility] [id number] [place] [address] Jul, 2014 [facility] [place] [facility] [address] [id number] [place] [address] Jul, 2014 [facility] [place] [facility] [address] [facility] [id number] [place] [address] Jul, 2014 [facility] [place] [facility] [address] [id number] [place] [address] Jul, 2014 [facility] [place] [facility] [address] [id number], [place] [address] Jul, 2014 [facility] [place] [facility] [address] [facility] [id number], [place] [address] Jul, [facility] [place] [facility] [address] [id number] [place] [address] Jun, [facility] [place] [facility] [address] [id number] [place] [address] Jun, [facility] [place] [facility] [address] [id number] [place] [address] Jun, [facility] [place] [facility] [address] [id number] [place] [address] Jun, [facility] [place] [facility] [address] [id number] [place] [address] Jun, [facility] [place] [facility] [address] [id number] [place] [address] 28[address] Jun, [facility] [address] [id number] [place] [address] 5974 Jun, [facility] [address] [id number] [place] [address] 9[address] Jun, [facility] [place] [facility] [address] [id number] [place] [address] 1402 May, [facility] [place] [facility] [address] [id number] [place] [address] 1853 May, [facility] [place] [facility] [address] [id number] [place] [address] 4773 18 May, 2014 [facility] [place] [facility] [address] [id number] [place] [address]- 1774 18 May, 2014 [facility] [place] [facility] [address] [id number] [place] [address] 5348 15 May, 2014 [facility] [place] [facility] [address] [id number] [place] [address] 9058 15 May, 2014 [facility] [place] [facility] [address] [id number] [place] [address] 9637 11 May, 2014 [facility] [place] [facility] [address] [id number], [place] [address] May, [facility] [place] [facility] [address] [id number] [place] [address] 8458 May, [facility] [place] [facility] [address] [id number] [place] [address] 3670 May, [facility] [place] [facility] [address] [id number] [place] [address]- 2284 May, [facility] [place] [facility] [address] [id number] [place] [address]- 5257 May, [facility] [place] [facility] [address] [id number] [place] [address]- 9248 Apr, [facility] [place] [facility] [address] [id number] [place] [address]- 2186 Apr, [facility] [place] [facility] [address] [id number] [place] [address]- 0067 Apr, [facility] [place] [facility] [address] [id number] [place] [address]- 5670 Apr, [facility] [place] [facility] [address] [id number] [place] [address]- 6249 Apr, [facility] [place] [facility] [address] [id number] [place] [address]- 4109 Apr, [facility] [place] [facility] [address] [id number], [place] [address] Apr, [facility] [place] [facility] [address] [id number], [place] [address]- 5256 Apr, [facility] [place] [facility] [address] [id number] [place] [address]- 1460 Apr, [facility] [place] [facility] [address] [id number] [place] [address]- 6449 Apr, [facility] [place] [facility] [address] [id number] [place] [address]- 5291 Apr, [facility] [place] [facility] [address] [id number] [place] [address]- 8256 Apr, [facility] [place] [facility] [address] [id number] [place] [address]- 5231 Mar, [facility] [place] [facility] [address] [id number] [place] [address] 7794 Mar, [facility] [place] [facility] [address] [id number] [place] [address]- 0392 Mar, [facility] [place] [facility] [address] [id number] [place] [address]- 3749 Mar, [facility] [place] [facility] [address] [id number] [place] [address] 8502 10 Feb, 2014 [facility] [place] [facility] [address] [id number] [place] [address]- 1313 10 Feb, 2013 [facility] [place] [facility] [address] [id number] [place] [address]- 8790 05 Feb, 2013 [facility] [place] [facility] [address] [id number] [place] [address]- 6064 05 Feb, 2013 [facility] [place] [facility] [address] [id number] [place] [address]- 3462 05 Feb, 2013 [facility] [place] [facility] [address] [id number] [place] [address]- 6228 05 Feb, 2014 [facility] [place] [facility] [address] [id number] [place] [address] 7537 Jan, [facility] [place] [facility] [address] [id number] [place] [address]- 5330 Jan, [facility] [place] [facility] [address] [id number] [place] [address]- 0215 Jan, [facility] [place] [facility] [address] [id number] [place] [address]- 0625 Jan, [facility] [place] [facility] [address] [id number] [place] [address]- 0820 Jan, [facility] [place] [facility] [address] [id number] [place] [address]- 4767 Jan, [facility] [place] [facility] [address] [id number] [place] [address]- 5892 Jan, [facility] [place] [facility] [address] [id number] [place] [address]- 7107 Jan, [facility] [place] [facility] [address] [id number] [place] [address]- 8645 Jan, [facility] [place] [facility] [address] [id number] [place] [address]- 8978 Jan, [facility] [place] [facility] [address] [id number] [place] [address]- 1259 Jan, [facility] [place] [facility] [address] [id number] [place] [address]- 0139 Jan, [facility] [place] [facility] [address] [id number] [place] [address]- 0758 Jan, [facility] [place] [facility] [address] [id number] [place] [address]- 9436 Jan, [facility] [place] [facility] [address] [id number] [place] [address]- 4756 Dec, [facility] [place] [facility] [address] [id number] [place] [address]- 0361 Dec, [facility] [place] [facility] [address] [id number] [place] [address]- 3516 Dec, [facility] [place] [facility] [address] [id number] [place] [address]- 6277 Dec, [facility] [place] [facility] [address] [id number] [place] [address] 1920 Nov, [facility] [place] [facility] [address] [id number] [place] [address]- 3151 Nov, [facility] [place] [facility] [address] [id number] [place] [address]- 8794 Nov, [facility] [address] [id number] [place] [address]- 8996 Nov, [facility] [place] [facility] [address] [id number] [place] [address]- 8125 Nov, [facility] [place] [facility] [address] [id number] [place] [address]- 9463 October, [facility] [place] [facility] [address] [id number] [place] [address]- 1701 October, [facility] [place] [facility] [address] [id number] [place] [address]- 1611 October, [facility] [place] [facility] [address] [id number] [place] [address]- 7854 October, [facility] [address] [id number] [place] [address]- 3961 October, [facility] [place] [facility] [address] [id number] [place] [address]- 2431 October, [facility] [place] [facility] [address] [id number] [place] [address]- 3907 October, [facility] [place] [facility] [address] [id number] [place] [address]- 8003 October, [facility] [place] [facility] [address] [id number] [place] [address]- 7868 October, [facility] [place] [facility] [address] [id number] [place] [address]- 6514 October, [facility] [place] [facility] [address] [id number] [place] [address]- 8909 October, [facility] [place] [facility] [address] [id number] [place] [address]- 2533 October, [facility] [place] [facility] [address] [id number] [place] [address]- 9019 October, [facility] [place] [facility] [address] [id number] [place] [address]- 5929 October, [facility] [place] [facility] [address] [id number] [place] [address]- 7874 Sep, [facility] [place] [facility] [address] [id number] [place] [address]- 4840 Sep, [facility] [place] [facility] [address] [id number] [place] [address]- 2136 Sep, [facility] [place] [facility] [address] [id number] [place] [address]- 5404 Sep, [facility] [place] [facility] [address] [id number] [place] [address]- 6957 Sep, [facility] [place] [facility] [address] [id number] [place] [address]- 3554 Sep, [facility] [place] [facility] [address] [id number] [place] [address]- 8849 Sep, [facility] [place] [facility] [address] [id number] [place] [address]- 4020 Sep, [facility] [place] [facility] [address] [id number] [place] [address]- 0177 Sep, [facility] [place] [facility] [address] [id number] [place] [address]- 9921 Sep, [facility] [place] [facility] [address] [id number] [place] [address]- 5011 Sep, [facility] [place] [facility] [address] [id number] [place] [address]- 5679 Sep, [facility] [place] [facility] [address] [id number] [place] [address]- 7814 Sep, [facility] [place] [facility] [address] [id number] [place] [address]- 7723 Sep, [facility] [place] [facility] [address] [id number] [place] [address]- 8752 Sep, [facility] [place] [facility] [address] [id number] [place] [address]- 3994 Aug, [facility] [place] [facility] [address] [id number] [place] [address]- 5500 Aug, [facility] [place] [facility] [address] [id number] [place] [address]- 3490 Aug, [facility] [place] [facility] [address] [id number] [place] [address]- 7583 Aug, [facility] [place] [facility] [address] [id number] [place] [address]- 5562 Jul, [facility] [place] [facility] [address] [id number] [place] [address]- 9120 Jul, [facility] [place] [facility] [address] [id number] [place] [address]- 1416 Jul, [facility] [place] [facility] [address] [id number] [place] [address]- 1033 Jul, [facility] [place] [facility] [address] [id number] [place] [address]- 5039 Jun, [facility] [place] [facility] [address] [id number] [place] [address]- 6495 Jun, [facility] [place] [facility] [address] [id number] [place] [address]- 3633 Jun, [facility] [place] [facility] [address] [id number] [place] [address]- 7654 Jun, [facility] [place] [facility] [address] [id number] [place] [address]- 1671 Jun, [facility] [place] [facility] [address] [id number] [place] [address]- 0373 Jun, [facility] [place] [facility] [address] [id number] [place] [address]- 6687 Jun, [facility] [place] [facility] [address] [id number] [place] [address]- 2635 08 Jun, 2013 [facility] [address] [id number] [place] [address]- 6083 20 May, 2013 [facility] [address] [id number] [place] [address] 20 May, 2013 [facility] [address] [id number] [place] [address]- 3031 18 May, 2013 [facility] [address] [id number] [place] [address]331 18 May, 2013 [facility] [address] [id number] [place] [address]605 17 May, 2013 [facility] [address] [id number] [place] [id number] 17 May, 2013 [facility] [address] [id number] [place] [address]- 9920 17 May, 2013 [facility] [address] [id number] [place] [address]- 4332 17 May, 2013 [facility] [address] [id number] [place] [address]- 0743 16 May, 2013 [facility] [address] [id number] [place] [address]- 4130 16 May, 2013 [facility] [address] [id number] [place] [address]- 8794 14 May, 2013 [facility] [address] [id number] [place] [address]- 8334 14 May, 2013 [facility] [address] [id number] [place] [address]- 1163 13 May, 2013 [facility] [address] [id number] [place] [address]- 9215 13 May, 2013 [facility] [address] [id number] [place] [address]- 4178 May, [facility] [address] [id number] [place] [address]- 1130 May, [facility] [place] [facility] [address] [id number] [place] [address]- 5270 May, [facility] [place] [facility] [address] [id number] [place] [address]- 5774 May, [facility] [place] [facility] [address] [id number] [place] [address]- 3589 Apr, [facility] [address] [id number] [place] [address]- 7174 Apr, [facility] [place] [facility] [address] [id number] [place] [address]- 4402 Apr, [facility] [address] [id number] [place] [address]- 2375 Apr, [facility] [address] [id number] [place] [address]- 4507 Aug, [facility] [place] [facility] [address] [id number] [place] [address]- 7380 Aug, [facility] [place] [facility] [address] [id number], [place] [address]- 2076 Aug, [facility] [place] [facility] [address] [id number], [place] [address]- 5406 Aug, [facility] [place] [facility] [address] [id number], [place] [address]- 6906 Jul, [facility] [place] [facility] [address] [id number] [place] [address]- 9337 Jun, [facility] [place] [facility] [address] [id number], [place] [address]- 3436 Jun, [facility] [place] [facility] [address] [id number], [place] [address]- 6336 Jun, [facility] [place] [facility] [address] [id number], [place] [address]- 3118 Jun, [facility] [place] [facility] [address] [id number] [place] [address]- 0518 May, [facility] [place] [facility] [address] [facility] [id number], [place] [address]- 0791 May, [facility] [place] [facility] [address] [facility] [id number] [place] [address]- 2967 May, [facility] [place] [facility] [address] [facility] [id number], [place] [address]- 5141 May, [facility] [place] [facility] [id number] [place] [address], [place] [address]- 6475 May, [facility] [place] [facility] [address] [facility] [id number] [place] [address]- 8961 May, [facility] [id number], [place] [address]- 9521 May, [facility] [place] [facility] [address] [facility] [id number], [place] [address]- 3977 Apr, [facility] [place] [facility] [id number], [place] [address]- 1739 Apr, [facility] [place] [facility] [address] [id number], [place] [address]- 2116 Apr, [facility] [place] [facility] [id number], [place] [address]- 1708 Apr, [facility] [place] [facility] [address] [facility] [id number], [place] [address]- 2403 Apr, [facility] [place] [facility] [address] [id number], [place] [address]- 5320 Apr, [facility] [place] [facility] [address] [facility] [id number], [place] [address]- 7950 Apr, [facility] [place] [facility] [address] [id number], [place] [address]- 4215 Mar, [facility] [place] [facility] [address] [id number] [place] [address]- 4620 Mar, [facility] [place] [facility] [address] [id number] [place] [address]- 6451 Mar, [facility] [place] [facility] [address] [id number] [place] [address]- 5136 Mar, [facility] [place] [facility] [address] [id number] [place] [address]- 7140 Mar, [facility] [place] [facility] [address] [id number] [place] [address]- 5453 Mar, [facility] [place] [facility] [address] [id number] [place] [address]- 8041 Mar, [facility] [place] [facility] [address] [id number] [place] [address]- 2892 Mar, [facility] [place] [facility] [address] [id number] [place] [address]- 8716 Mar, [facility] [place] [facility] [address] [id number] [place] [address]- 4940 Mar, [facility] [place] [facility] [address] [id number] [place] [address]- 7277 Mar, [facility] [place] [facility] [address] [id number] [place] [address]- 8646 Mar, [facility] [place] [facility] [address] [id number] [place] [address]- 9311 Feb, [facility] [place] [facility] [address] [id number] [place] [address] 2542 Jan, [facility] [place] [facility] [address] [id number] [place] [address]- 5282 Jan, [facility] [place] [facility] [address] [id number] [place] [address] 2546 Jan, [facility] [place] [facility] [address] [id number] [place] [address]- 9758 Jan, [facility] [place] [facility] [address] [id number] [place] [address]- 7602 Jan, [facility] [place] [facility] [address] [id number] [place] [address]- 4918 Dec, [facility] [place] [facility] [address] [id number] [place] [address]- 1419 Dec, [facility] [place] [facility] [address] [id number] [place] [address]- 8283 Nov, [facility] [place] [facility] [address] [id number] [place] [address]- 0183 Nov, [facility] [place] [facility] [address] [id number] [place] [address]- 6023 Nov, [facility] [place] [facility] [address] [id number] [place] [address]- 0835 October, [facility] [place] [facility] [address] [id number] [place] [address]- 4089 October, [facility] [place] [facility] [address] [id number] [place] [address]- 0760 October, [facility] [place] [facility] [address] [id number] [place] [address]- 6630 October, [facility] [place] [facility] [address] [id number] [place] [address] October, [facility] [place] [facility] [address] [id number] [place] [address] October, [facility] [place] [facility] [address] [id number] [place] [address] October, [facility] [place] [facility] [address] [id number] [place] [address] Sep, [facility] [place] [facility] [address] [id number] [place] [address] Sep, [facility] [place] [facility] [address] [id number] [place] [address] 26 Sep, 2011 [facility] [place] [facility] [address] [id number] [place] [address] 25 Sep, 2011 [facility] [place] [facility] [address] [id number] [place] [address] 24 Sep, 2011 [facility] [place] [facility] [address] [id number] [place] [address] 19 Sep, 2011 [facility] [place] [facility] [address] [id number] [place] [address] 17 Sep, 2011 [facility] [place] [facility] [address] [id number] [place] [address]27 16 Sep, 2011 [facility] [place] [facility] [address] [id number] [place] [address] 4774 16 Sep, 2011 [facility] [address] [id number] [place] [address] 47[address] 14 Sep, 2011 [facility] [place] [facility] [address] [id number] [place] [address] 7943 13 Sep, 2011 [facility] [place] [facility] [address] [id number] [place] [address] 6179 10 Sep, 2011 [facility] [place] [facility] [address] [id number] [place] [address]34 09 Sep, 2011 [facility] [place] [facility] [address] [id number] [place] [address] 9[address] 27 Aug, 2011 [facility] [place] [facility] [address] [id number] [place] [address] 7824 12 Aug, 2011 [facility] [place] [facility] [address] [id number] [place] [address] 08 Aug, 2011 [facility] [place] [facility] [address] [id number] [place] [address]237 06 Aug, 2011 [facility] [place] [facility] [address] [id number] [place] [address] 50[address] 28 Jul, 2011 [facility] [place] [facility] [address] [id number] [place] [address] 22 Jul, 2011 [facility] [place] [facility] [address] [id number] [place] [address] 4976 16 Jul, 2011 [facility] [place] [facility] [address] [id number] [place] [address]36 15 Jul, 2011 [facility] [place] [facility] [address] [id number] [place] [address] 14 Jul, 2011 [facility] [place] [facility] [address] [id number] [place] [address] 136[address] Jul, [facility] [place] [facility] [address] [id number] [place] [address] Jun, [facility] [place] [facility] [address] [id number] [place] [address] 4[address] Jun, [facility] [place] [facility] [address] [id number] [place] [address] 99[address] Jun, [facility] [place] [facility] [address] [id number] [place] [address] 365[address] Jun, [facility] [place] [facility] [address] [id number] [place] [address] Jun, [facility] [place] [facility] [address] [id number] [place] [address] 37[address] May, [facility] [place] [facility] [address] [id number] [place] [address]127 May, [facility] [place] [facility] [address] [id number] [place] [address]26 May, [facility] [place] [facility] [address] [id number] [place] [address] 9320 May, [facility] [place] [facility] [address] [id number] [place] [address] 6[address] May, [facility] [place] [facility] [address] [id number] [place] [address] 8918 07 May, 2011 [facility] [place] [facility] [address] [id number] [place] [address] 05 May, 2011 [facility] [place] [facility] [address] [id number] [place] [address] Apr, [facility] [place] [facility] [address] [id number] [place] [address] 4[address] Apr, [facility] [place] [facility] [address] [id number] [place] [address] 2776 Apr, [facility] [place] [facility] [address] [id number] [place] [address] Apr, [facility] [place] [facility] [address] [id number] [place] [address] 9160 Apr, [facility] [place] [facility] [address] [id number] [place] [address] 6061 Apr, [facility] [place] [facility] [address] [id number] [place] [address] 8734 Mar, [facility] [place] [facility] [address] [id number] [place] [address] 6098 Mar, [facility] [place] [facility] [address] [id number] [place] [address]- 1762 Mar, [facility] [place] [facility] [address] [id number] [place] [address] 8302 Mar, [facility] [place] [facility] [address] [id number] [place] [address] 0531 Jan, [facility] [place] [facility] [address] [id number] [place] [address] 5024 Dec, [facility] [place] [facility] [address] [id number] [place] [address] 0385 Dec, [facility] [place] [facility] [address] [id number] [place] [address] 7173 October, [facility] [place] [facility] [address] [id number] [place] [address] 1773 Sep, [facility] [place] [facility] [address] [id number] [place] [address]- 5624 14 Sep, 2010 [facility] [place] [facility] [address] [id number] [place] [address] 2546 17 Jul, 2010 [facility] [place] [facility] [address] [id number] [place] [address]- 8146 16 Jul, 2010 [facility] [place] [facility] [address] [id number] [place] [address]- 2270 31 May, 2010 [facility] [place] [facility] [address] [id number] [place] [address] 3973 May, [facility] [place] [facility] [address] [id number] [place] [address]- 1838 May, [facility] [place] [facility] [address] [id number] [place] [address]- 8254 May, [facility] [place] [facility] [address] [id number] [place] [address]- 0095 Apr, [facility] [place] [facility] [address] [id number] [place] [address]- 2453 Apr, [facility] [place] [facility] [address] [id number] [place] [address]- 8126 Apr, [facility] [place] [facility] [address] [id number] [place] [address]- 7004 Apr, [facility] [place] [facility] [address] [id number] [place] [address]- 9923 Apr, [facility] [place] [facility] [address] [id number] [place] [address]- 7033 Mar, [facility] [place] [facility] [address] [id number] [place] [address]- 0422 14 Mar, 2010 [facility] [place] [facility] [address] [id number], [place] [address] 13 Mar, 2010 [facility] [address] [facility] [id number], [place] [address] Mar, [facility] [address] [facility] [id number], [place] [address] Jan, [facility] [address] [facility] [id number], [place] [address] Dec, [facility] [address] [facility] [id number] [address] Sep, [facility] [address] [facility] [id number], [place] [address] May, [facility] [address] [facility] [id number], [place] [address] May, [facility] [address] [facility] [id number], [place] [address] May, [facility] [address] [facility] [id number], [place] [address] Apr, [facility] [address] [facility] [id number], [place] [address] 17 Apr, 2009 [facility] [address] [facility] [id number], [place] [address] Apr, [facility] [address] [facility] [id number], [place] [address] Apr, [facility] [address] [facility] [id number], [place] [address] Apr, [facility] [address] [facility] [id number], [place] [address] Mar, [facility] [address] [facility] [id number], [place] [address] Mar, [facility] [address] [facility] [id number][place] [address] Jul, IMMUNIZATIONS No Known Immunizations SOCIAL HISTORY [...] the January before. 03/2018 Hospitalization History Cellulitis-[facility] 12/20/15 Hospitalization History [facility]- Abd pain 03/07/2017 Hospitalization History [facility]- Abd pain 03/14/2017 Hospitalization History [facility]- No bowel movement, rash 04/13/2017 Hospitalization History [facility]- Abd pain r/t kidney surgery on 04/17/2017 Hospitalization History [facility]- Abd pain r/t kidney surgery on 04/18/2017 Hospitalization History [facility]- Lower abd pain 04/30/2017 Hospitalization History [facility]- Cannot urinate 05/30/2017 Hospitalization History [facility]- Pancreatitis Sx 06/29/2017 Hospitalization History [facility]- Stomach pain 07/22/2017 Hospitalization History [facility]- Left side pain 08/12/2017 Hospitalization History [facility]- Incision site infection 08/30/2017 Hospitalization History [facility]- Post Op Seroma/Hematoma Left Abdomen. Discharged 09/04/17- Dr Daniel 09/02/2017 Hospitalization History [facility]- Right shoulder and back pain 2017 Hospitalization History [facility]- Shoulder/Back pain 11/11/2017 Hospitalization History [facility]- Right shoulder blade pain 12/04/2017 Hospitalization History [facility]- C-Diff 12/13/2017 Hospitalization History C diff et MRSA 12/27/2017
--- NOTE | 2018-06-17 13:42 | ED Neck-Back Pain/Injury ---
General Chief Complaint: Head/Cervical Problems Stated Complaint: BACK PAIN Nursing Triage Note: PATIENT STATES THAT SHE HAS HAD SOME NECK PAIN SINCE SHE WOKE UP ON SATURDAY MORNING. SHE THOGUHT SHE MUIST HAVE SLEPT ON IT WRONG. YESTERDAY SHE STATES SHE NOTICED A "KNOT" ON THE BACK OF HER NECK. IT IS CAUSING PAIN 6/10 WHEN SHE IS NOT MOVING AND PAIN WORSENS WITH ANY MOVEMENT. Nursing Sepsis Screen: No Definite Risk Source of Information: Patient Exam Limitations: No Limitations History of Present Illness Date Seen by Provider: Jun 17, 2018 Time Seen by Provider: 13:42 Initial Comments 33-year-old female patient presents to the emergency department with complaints of right upper back pain radiating into the right neck beginning last Saturday. Patient states she initially thought she had slept wrong. Also states she has noticed a "knot" on the right upper back. Patient states she is up stairs with her father who is an inpatient and decided to come down to the emergency department to be seen. She does have hydrocodone at home for pain. She states she took 1 hydrocodone last night, but tries not to take them. Denies taking anything today for pain. Denies known injury. Location: Paraspinous Muscles (right upper back and rt neck) Timing/Duration: 2-3 Days, Getting Worse Pain/Injury Location: Back (right upper back) Radiation: Other (radiates into the right neck) Method of Injury: Unknown Modifying Factors: Improves With Immobilization; Worse With Movement Associated Symptoms: muscle spasms; No fever, No weakness, No numbness in legs/ feet, No tingling in legs/feet, No sensory/motor loss, No lower back pain, No loss of bladder control, No loss of bowel control Allergies and Home Medications Allergies Coded Allergies: fentanyl (Verified Allergy, Unknown, 02/13/18) meperidine (Verified Allergy, Unknown, 08/20/17) penicillin G (Verified Allergy, Unknown, 08/20/17) vancomycin (Unverified Adverse Reaction, Intermediate, severe itching, ) Home Medications Cyanocobalamin 1,000 Mcg/Ml Inj, 1,000 MCG IJ MONTHLY, (Reported) Estradiol 2 Mg Tablet, 2 MG PO HS, (Reported) Fluoxetine HCl 40 Mg Capsule, 40 MG PO HS, (Reported) Hydrocodone/Acetaminophen 1 Each Tablet, 1 TAB PO Q6H Prescribed by: LINDSEY MARROQUIN on 02/13/18 1335 Hydrocortisone 30 Gm Cream.appl, TOP DAILY PRN for INFLAMMATION, (Reported) Hyoscyamine Sulfate 0.125 Mg Tab.subl, 0.125 MG SL Q6H PRN for CRAMPS Prescribed by: GEORGES FINN on 05/25/18 1131 Lipase/Protease/Amylase 1 Each Tablet, PO UD, (Reported) TAKE 3 TABLETS WITH MEALS AND 2 TABLETS WITH SNACKS (HAS NOT STARTED TAKING DUE TO NOT BEING ABLE TO KEEP ANYTHING DOWN 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) Ondansetron 8 Mg Tab.rapdis, 8 MG PO BID, (Reported) Ondansetron HCl 8 Mg Tablet, 8 MG PO Q6H Prescribed by: YAN CHAPARRO on 06/01/18 0552 Orphenadrine Citrate 100 Mg Tablet.er, 100 MG PO BID PRN for SPASMS Prescribed by: KIARA CALVERT on 06/17/18 142 Prednisone 20 Mg Tab, 20 MG PO BID Prescribed by: KIARA CALVERT on 06/17/18 142 Promethazine HCl 25 Mg Tablet, 25 MG PO Q6H PRN for NAUSEA/VOMITING-2ND LINE, ( Reported) Promethazine HCl 25 Mg Tablet, 25 MG PO Q6H PRN for NAUSEA/VOMITING Prescribed by: GEORGES FINN on 05/25/18 113 Ropinirole HCl 4 Mg Tablet, 4 MG PO HS, (Reported) Tramadol HCl 50 Mg Tablet, 50 MG PO Q4H Prescribed by: YAN CHAPARRO on 06/01/18 0552 Patient Home Medication List Home Medication List Reviewed: Yes Review of Systems Constitutional: No chills, No dizziness, No fever, No malaise EENTM: no symptoms reported Respiratory: no symptoms reported Cardiovascular: no symptoms reported Musculoskeletal: see HPI, back pain; No joint pain; neck pain Skin: no symptoms reported Psychiatric/Neurological: Denies Headache, Denies Numbness, Denies Paresthesia , Denies Tingling, Denies Weakness All Other Systems Reviewed Negative Unless Noted: Yes (Negative excepted noted.) Past Nfqaxmp-Ypvbiw-Whkrrl Hx Past Med/Social Hx: Reviewed Nursing Past Med/Soc Hx Patient Social History Alcohol Use: Denies Use Recreational Drug Use: No Smoking Status: Former Smoker Type Used: Cigarettes 2nd Hand Smoke Exposure: No Recent Foreign Travel: No Contact w/Someone Who Travel: No Recent Infectious Disease Expo: No Recent Hopitalizations: Yes Physical Abuse: No Sexual Abuse: No Immunizations Up To Date Tetanus Booster (TDap): Unknown PED Vaccines UTD: No Date of Pneumonia Vaccine: May 17, 2012 Date of Influenza Vaccine: Jul 03, 2012 Seasonal Allergies Seasonal Allergies: Yes (MILD) Past Medical History Surgeries: Yes Abdominal, Adenoidectomy, Appendectomy, Gallbladder, 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, Nephrectomy, Orthopedic, Tonsillectomy Respiratory: Yes Asthma Currently Using CPAP: No Currently Using BIPAP: No Cardiac: No Neurological: Yes (RESTLESS LEG SYNDROME) Headaches /Migraines 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: No (HX ENDOMETRIOSIS ) 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 [employer] History: 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 Sexually Transmitted Disease: No HIV/AIDS: No Genitourinary: Yes (L KIDNEY REMOVED FOR TUMOR-MALIGNANT;) UTI-Chronic Gastrointestinal: Yes Abdominal Hernia, Liver Disease/Jaundice, Pancreatitis, Polyps Musculoskeletal: Yes (COCCYX-REPAIRED, MAY HAVE SIGNS OF ARTHRITIS) Chronic Back Pain Endocrine: Yes (CHRONIC PANCREATITIS; OBESITY) HEENT: No Loss of Vision: Denies Hearing Impairment: Denies Cancer: Yes Kidney Did You Recieve Any Treatments: Yes What Type of Treatment Did You: Surgical Intervention Psychosocial: Yes Anxiety, Depression Integumentary: No Herpes Blood Disorders: No Adverse Reaction/Blood Tranf: No (N/A) Family Medical History Reviewed Nursing Family Hx Cardiovascular disease 19 FATHER Completed stroke 19 FATHER Diabetes mellitus 19 FATHER Hypercholesterolemia 19 FATHER 19 MOTHER Hypertension 19 FATHER 19 MOTHER Neoplasm 19 MOTHER Psychosocial problem 19 FATHER 19 MOTHER No Pertinent Family Hx, Cancer, Diabetes, Hypertension Physical Exam Vital Signs Vital Signs - First Documented 06/17/18 13:05 Temp 97.6 Pulse 92 Resp 20 B/P (MAP) 153/83 (106) Pulse Ox 97 Capillary Refill : Less Than 3 Seconds Height, Weight, BMI Height: 5'2.00" Weight: 260lbs. 0oz. 117.514240xp; 45.8 BMI Method:Stated General Appearance: No Apparent Distress, WD/WN HEENT: PERRL/EOMI, Pharynx Normal Neck: Full Range of Motion, Supple, Limited Range of Motion, Tender Lateral ( right paraspinous neck muscles); No Tender Midline Cardiovascular: Regular Rate, Rhythm, No Murmur, Normal Peripheral Pulses Respiratory: Chest Non Tender, Lungs Clear, Normal Breath Sounds, No Accessory Muscle Use, No Respiratory Distress Peripheral Pulses: 2+ Dorsalis Pedis (R), 2+ Left Dors-Pedis (L), 2+ Radial Pulses (R), 2+ Radial Pulses (L) Back: Normal Inspection, No Vertebral Tenderness; No Decreased Range of Motion ; Muscle Spasm (right rhomboid muscle spasm and tenderness) Extremity: Normal Capillary Refill, Normal Inspection, Normal Range of Motion, Non Tender Neurologic/Psychiatric: Alert, Oriented x3, No Motor/Sensory Deficits, Normal Mood/Affect Skin: Normal Color, Warm/Dry Progress/Results/Core Measures Results/Orders My Orders Orders - KIARA CALVERT Hydrocodone/Apap 10/325 Tablet (Lortab 1 (06/17/18 14:01) Orphenadrine Injection (Norflex Injectio (06/17/18 14:01) Vital Signs/I&O 06/17/18 13:05 Temp 97.6 Pulse 92 Resp 20 B/P (MAP) 153/83 (106) Pulse Ox 97 Blood Pressure Mean: 106 Departure Communication (Admissions) Patient seen and evaluated. patient given norflex 100 mg IM x1dose and lortab 10/325 mg po x1dose. plan for dsch to home. Impression Primary Impression: Torticollis, acute Disposition: HOME, SELF-CARE Condition: Improved Departure-Patient Inst. Decision time for Depature: 14:19 Referrals: CARMEN GIBBS MD (PCP/Family) Primary Care Physician Patient Instructions: Torticollis (DC) Add. Discharge Instructions: All discharge instructions reviewed with patient and/or family. Voiced understanding. Medications as instructed. Continue usual home medications. Use a heating pad or pack as needed for pain and muscle spasm. Avoid pushing, pulling, twisting, lifting for 5-7 days. Increase activity as tolerated. Follow-up with your primary care provider for recheck as an outpatient if no improvement in symptoms. Return to the emergency department for worsened symptoms, bowel incontinence, bladder incontinence, numbness, weakness, or any other concerns. Scripts Orphenadrine Citrate (Orphenadrine Citrate) 100 Mg Tablet.er 100 MG PO BID PRN for SPASMS, #10 TAB 0 Refills Prov: KIARA CALVERT 06/17/18 Prednisone (Prednisone) 20 Mg Tab 20 MG PO BID, #6 TAB 0 Refills Prov: KIARA CALVERT 06/17/18 KIARA CALVERT Jun 17, 2018 13:42
[2018-06-17] MEDS ORDERED: HYDROcodone/APAP 10 MG/325 MG (LORTAB) TAB PO STA (14:01)
[2018-06-17] MEDS ORDERED: ORPHENADRINE 60 MG/2 ML (NORFLEX) AMP IM STA (14:01)
[2018-06-17] MEDS ORDERED: ORPH100T PO (14:21)
[2018-06-17] MEDS ORDERED: PRD20T PO (14:21)
[2018-06-17 14:23] VITALS: BP 153/83
== END 2018-06-17 14:30 | disposition home or self-care (01) ==
LOC: EDUNIT# 12:58 → ER 12:59
DX: M43.6 Torticollis (principal); J45.909 Unspecified asthma, uncomplicated; G25.81 Restless legs syndrome; E66.9 Obesity, unspecified; F41.9 Anxiety disorder, unspecified; F32.9 Major depressive disorder, single episode, unspecified; G43.909 Migraine, unspecified, not intractable, without status migrainosus; Z85.528 Personal history of other malignant neoplasm of kidney; Z86.19 Personal history of other infectious and parasitic diseases; Z82.49 Family history of ischemic heart disease and other diseases of the circulatory system; Z87.19 Personal history of other diseases of the digestive system; Z86.010 Personal history of colon polyps; Z87.440 Personal history of urinary (tract) infections; Z87.448 Personal history of other diseases of urinary system; Z88.0 Allergy status to penicillin; Z88.8 Allergy status to other drugs, medicaments and biological substances; Z79.51 Long term (current) use of inhaled steroids; Z79.52 Long term (current) use of systemic steroids; Z87.891 Personal history of nicotine dependence; Z90.89 Acquired absence of other organs; Z90.49 Acquired absence of other specified parts of digestive tract; Z90.710 Acquired absence of both cervix and uterus; Z90.5 Acquired absence of kidney
CPT/HCPCS: 99284

== ENCOUNTER → 2018-06-20 | Outpatient (CLI) | payer MEDICARE, MEDICAID ==
[~2018-06-20] MED LIST changes: +ORPH100T PO
[2018-06-20 14:15] LABS: BASOPHILS % (AUTO) 0 % (0-10); EOSINOPHILS # (AUTO) 0.1 10^3/uL (0.0-0.3); EOSINOPHILS % (AUTO) 1 % (0-10); HEMATOCRIT 37 % (35-52); HEMOGLOBIN 11.9 G/DL (11.5-16.0); LYMPHOCYTES # (AUTO) 2.5 X 10^3 (1.0-4.0); LYMPHOCYTES % (AUTO) 30 % (12-44); MEAN CORPUSCULAR HEMOGLOBIN 27 PG (25-34); MEAN CORPUSCULAR HGB CONC 32 G/DL (32-36); MEAN CORPUSCULAR VOLUME 84 FL (80-99); MEAN PLATELET VOLUME 9.3 FL (7.4-10.4); MONOCYTES # (AUTO) 0.6 X 10^3 (0.0-1.0); MONOCYTES % (AUTO) 7 % (0-12); NEUTROPHILS # (AUTO) 5.1 X 10^3 (1.8-7.8); NEUTROPHILS % (AUTO) 62 % (42-75); PLATELET COUNT 274 10^3/uL (130-400); RED BLOOD COUNT 4.44 10^6/uL (4.35-5.85); RED CELL DISTRIBUTION WIDTH 14.6 % (10.0-14.5); WHITE BLOOD COUNT 8.2 10^3/uL (4.3-11.0)
[2018-06-20 14:30] LABS: ALANINE AMINOTRANSFERASE 23 U/L (0-55); ALBUMIN 3.8 GM/DL (3.2-4.5); ALKALINE PHOSPHATASE 58 U/L (40-136); AMYLASE 80 U/L (25-125); BILIRUBIN,TOTAL 0.1 MG/DL (0.1-1.0); BUN/CREATININE RATIO 15; CALCIUM 9.1 MG/DL (8.5-10.1); CARBON DIOXIDE 23 MMOL/L (21-32); CHLORIDE 107 MMOL/L (98-107); CREATININE SERUM 0.86 MG/DL (0.60-1.30); GFR ESTIMATED > 60; GLUCOSE 115 MG/DL (70-105); LIPASE 84 U/L (8-78); POTASSIUM 3.7 MMOL/L (3.6-5.0); SODIUM 141 MMOL/L (135-145); TOTAL PROTEIN 7.3 GM/DL (6.4-8.2)
== END ==
LOC: LAB 13:48
PROVIDERS: ATTEND Surgery
DX: R10.9 Unspecified abdominal pain (principal)
CPT/HCPCS: 36415; 80053; 82150; 83690; 85025

== ENCOUNTER 2018-06-24 09:15 | Emergency (ER) | payer MEDICARE, MEDICAID ==
[~2018-06-24] VITALS: Ht 157.5 cm; Wt 117.9 kg
--- OUTSIDE RECORDS SUMMARY | 2018-06-24 09:21 | XMS REPORT | Clinical Summary ---
Author Author [facility] Organization [facility] Address Unknown Phone Unavailable Care Team Providers Care Foot Piece Assembler Name Role Phone Michael Sutton MD [...] in the Health Information Management department at [phone] for further assistance in locating additional records.[facility] Allergies Comments Active Allergy Reactions Severity [...] Place vomiting on tongue to disolve. Active lnxxux-oumuaevg-zivmnsd Take 3 300 tablet 5 (VIOKACE) 20,880-78,300- [...] Overview: Added automatically from request for surgery [id number] Intractable vomiting with nausea 01/14/2018 Overview: Added automatically from request for surgery [id number] Left renal mass 04/10/2017 Renal mass 03/21/2017 Overview: Added automatically from request for surgery [id number] 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 06/24/2013 Overview: S/P FREDI LINO 11/27 [...] Taken Vital Sign Reading 05/19/2018 1:06 PM GATE WATCH Blood Pressure 135/79 05/19/2018 1:06 PM GATE WATCH Pulse 81 05/19/2018 1:06 PM GATE WATCH Temperature 36.6 C (97.9 F) 05/19/2018 1:06 PM GATE WATCH Respiratory Rate 18 05/19/2018 1:06 PM GATE WATCH Oxygen Saturation 99% - Inhaled Oxygen - Concentration 05/19/2018 1:06 PM GATE WATCH Weight 121.6 kg (268 lb) 05/19/2018 1:06 PM GATE WATCH Height 157.7 cm (5' 2.09") 05/19/2018 1:06 PM GATE WATCH Body Mass Index 48.88 Plan of Treatment Health Maintenance Due Date Last Done Comments PHYSICAL (COMPREHENSIVE) 1991 EXAM HIV SCREENING 1999 DTAP/TDAP VACCINES (1 - 2002 Tdap) CERVICAL CANCER SCREENING 2014 INFLUENZA VACCINE Completed 06/03/2018 Procedures Comments Procedure Name Priority Date/Time Associated Diagnosis CT ABDOMEN W CONTRAST Routine 05/19/2018 Left renal mass 11:[address] CHEST W CONTRAST Routine 05/19/2018 Left renal mass 11:52 AM GATE WATCH POC CREATININE, RAD 05/19/2018 11:18 AM GATE WATCH BASIC METABOLIC PANEL Routine 05/19/2018 Left renal mass 11:14 AM GATE WATCH from Last 3 Months Results * CT ABDOMEN W CONTRAST (05/19/2018 11:52 AM GATE WATCH) Impressions Performed At CHEST: [facility] RESULTS [...] Interface, Radiant Results - 05/19/2018 1:[address] CHEST AND ABDOMEN Clinical Indication: Female, [...] CT CHEST W CONTRAST (05/19/2018 11:52 AM GATE WATCH) Impressions Performed At CHEST: [facility] RESULTS [...] Interface, Radiant Results - 05/19/2018 1:[address] CHEST AND ABDOMEN Clinical Indication: Female, [...] * POC CREATININE, RAD (05/19/2018 11:18 AM GATE WATCH) Creatinine, POC 0.8 0.4 - 1.00 MG/DL [facility] Performing Organization Address City/State[facility] Phone Number [facility] [address] [place] [address] * BASIC METABOLIC PANEL (05/19/2018 11:14 AM GATE WATCH) Sodium 136 (L) 137 - 147 MMOL/L [...] Address City/State/Zipcode Phone Number [facility] [address] [place] [address] from Last 3 Months Insurance Payer Benefit Subscriber ID Type Phone Address Plan / Group MEDICARE MEDICARE xxxxxxxxxxx Medicare PART A AND B [employer] [place] [employer] xxxxxxxxxxx Medicaid Home) [place] [address] Advance Directives Patient has advance care planning documents, and code status on file. For more information, please contact: [facility] [address] [place] [address] Date Inactivated Comments Code Status Date Activated 04/11/2017 4:57 PM Full Code 04/10/2017 5:31 PM Provider has discussed Code Status No, discussion not w/Patient or Family? necessary based on Dx
--- OUTSIDE RECORDS SUMMARY | 2018-06-24 09:22 | XMS REPORT | Encounter Summary ---
Author Author [facility] Organization [facility] Address Unknown Phone Unavailable Care Team Providers Care Attendant Child Activity Name Role Phone Michael Sutton MD Unavailable Unavailable Mary Whittington MD PCP Jessica Valera Unavailable Maggie Puente Unavailable Unavailable Mary Telles APRN Unavailable Bam Ritter MD Unavailable Radha Bo LPN Unavailable Unavailable Jose Sanchez MD Unavailable Reason for Visit * Reason Comments Blood in stools Encounter Details Care Team Description Date Type Department Randy Nunez MD [address] [place] [address] Blood in stools 03/27/2018 Telephone [facility] - Internal Medicine [facility] [address] [place] [address] Social History Date Tobacco Use [...]
--- OUTSIDE RECORDS SUMMARY | 2018-06-24 09:22 | XMS REPORT | Encounter Summary ---
Author Author [facility] Organization [facility] Address Unknown Phone Unavailable Care Team Providers Care Hand Blocker Name Role Phone Michael Sutton MD Unavailable Unavailable Mary Whittington MD PCP Jessica Valera Unavailable Maggie Puente Unavailable Unavailable Mary Telles INSPECTING MACHINE ADJUSTER Unavailable Bam Ritter MD Unavailable Radha Bo LPN Unavailable Unavailable Jose Sanchez MD Unavailable Reason for Visit * Reason Comments Nausea Vomiting Abdominal pain Abdominal Distention Diarrhea Constipation Blood in stools Encounter Details Care Team Description Date Type Department Randy Nunez MD [address] [place] [address] Vomiting, intractability of vomiting not specified, presence of nausea not specified, unspecified vomiting type (Primary Dx); Chronic pancreatitis, unspecified pancreatitis type (HCC) 04/09/2018 Office Visit [facility] Physicians - Internal Medicine [facility] [address] [place] [address] Social History Date Tobacco Use [...] 10:30 AM CDT Call my nurse at [phone] if you have any troubles or questions. Take 3 Viokase with each meal. Make sure you call your oncologist in [place] to let them know about the new [...] at the [facility] in [place], [place]. She was recently diagnosed with Clostridium [...] to three times a day as needed. dnifzp-zxgoiyau-hjsqave (VIOKACE) 20,880-78,300- 78,300 unit tab Take 3 [...]
--- OUTSIDE RECORDS SUMMARY | 2018-06-24 09:22 | XMS REPORT | Encounter Summary ---
Author Author [facility] Organization [facility] Address Unknown Phone Unavailable Care Team Providers Care Ankle Patch Molder Name Role Phone Michael Sutton MD Unavailable Unavailable Mary Whittington MD PCP Jessica Valera Unavailable Maggie Puente Unavailable Unavailable Mary Telles APRN Unavailable Bam Ritter MD Unavailable Radha Bo LPN Unavailable Unavailable Jose Sanchez MD Unavailable Encounter Details Care Team Description Date Type Department Abel Poe MD [address] [place] [address] Left renal mass (Primary Dx) 04/29/2018 Orders Only [facility] [address] [address] Social History Date Tobacco Use Types Packs/Day [...] * BASIC METABOLIC PANEL (05/19/2018 11:14 AM LEGAL CLERK) Sodium 136 (L) 137 - 147 MMOL/L [...] Blood Performing Organization Address City/State/Zipcode Phone Number [facility] [address] [place] [address] in this encounter Visit Diagnoses Diagnosis Left renal mass - Primary Unspecified disorder of kidney and ureter in this encounter
--- OUTSIDE RECORDS SUMMARY | 2018-06-24 09:22 | XMS REPORT | Encounter Summary ---
Author Author [facility] Organization [facility] Address Unknown Phone Unavailable Care Team Providers Care Band Ripsaw Operator Name Role Phone Michael Sutton MD Unavailable Unavailable Mary Whittington MD PCP Jessica Valera Unavailable Maggie Puente Unavailable Unavailable Mary Telles APRN Unavailable Bam Ritter MD Unavailable Radha Bo LPN Unavailable Unavailable Jose Sanchez MD Unavailable Reason for Referral * Radiology Services (Routine) Referred By Contact Referred To Contact Status Reason Specialty Diagnoses / Procedures Abel Poe MD [address] [place] [address] New Request Radiology Diagnoses Left renal mass P rocedures CT ABDOMEN W CONTRAST CT ABDOMEN WO/W CONTRAST * Radiology Services (Routine) Referred By Contact Referred To Contact Status Reason Specialty Diagnoses / Procedures Abel Poe MD [address] [place] [address] New Request Radiology Diagnoses Left renal mass P rocedures CT ABDOMEN W CONTRAST CT ABDOMEN WO/W CONTRAST * Radiology Services (Routine) Referred By Contact Referred To Contact Status Reason Specialty Diagnoses / Procedures Abel Poe MD [address] [place] [address] [place] [address] No Auth Needed Radiology Diagnoses Left renal mass P rocedures CT CHEST W CONTRAST CT CHEST WO/W CONTRAST CHG CT ABDOMEN W/CONTRAST MATERIAL * Radiology Services (Routine) Referred By Contact Referred To Contact Status Reason Specialty Diagnoses / [place] [address] [place] [address] [place] [address] [place] [address] No Auth Needed Radiology Diagnoses Left renal mass P rocedures CT CHEST W CONTRAST CT CHEST WO/W CONTRAST CHG CT ABDOMEN W/CONTRAST MATERIAL Reason for Visit * Radiology Services (Routine) Referred By Contact Referred To Contact Status Reason Specialty Diagnoses / Procedures Abel Poe MD [address] [facility] [place] [address] No Auth Needed Radiology Diagnoses Left renal mass P rocedures CT CHEST W CONTRAST CT CHEST WO/W CONTRAST CHG CT ABDOMEN W/CONTRAST MATERIAL Encounter Details Care Team Description [place] [address] [place] [address] [phone] 05/19/2018 Hospital [facility] Encounter [place] [facility] [address] [place], [place] [id number] Social History Date Tobacco Use Types Packs/Day [...] three times a day as needed. 12/11/2017 iubqkb-qavprtpe-fsmbgzk Take 3 300 tablet 5 (VIOKACE) 20,880-78,300- [...] Abel Poe MD - 05/19/2018 3:41 PM CLIENT ADVOCATE Gave results of the CT scan. EL NT ADVOCATE in this encounter Plan of Treatment Not on fileas of this encounter Procedures Comments Procedure Name Priority Date/Time Associated Diagnosis CT ABDOMEN W CONTRAST Routine 05/19/2018 Left renal mass 11:[address] CHEST W CONTRAST Routine 05/19/2018 Left renal mass 11:52 AM CLIENT ADVOCATE BASIC METABOLIC PANEL Routine 05/19/2018 Left renal mass 11:14 AM CLIENT ADVOCATE in this encounter Results * CT ABDOMEN W CONTRAST (05/19/2018 11:52 AM CLIENT ADVOCATE) Impressions Performed At [facility]ST: [facility] RESULTS [...] Interface, Radiant Results - 05/19/2018 1:[address] CHEST AND ABDOMEN Clinical Indication: Female, [...] CT CHEST W CONTRAST (05/19/2018 11:52 AM CLIENT ADVOCATE) Impressions Performed At CHEST: [facility] RESULTS [...] Interface, Radiant Results - 05/19/2018 1:[address] CHEST AND ABDOMEN Clinical Indication: Female, [...] on 05/19/2018 12:43 PM. Performing Organization Address City/State[facility] Phone Number [facility] RESULTS * BASIC METABOLIC PANEL (05/19/2018 11:14 AM CLIENT ADVOCATE) Sodium 136 (L) 137 - 147 MMOL/L [...] for questions. Specimen Blood Performing Organization Address [facility] Phone Number [facility] [address] [place] [address] in this encounter Visit Diagnoses Diagnosis Left renal mass Unspecified disorder of kidney and ureter in this encounter Administered Medications Action Date Dose Rate Site Medication Order MAR Action 05/19/2018 11:46 AM CLIENT ADVOCATE 100 mL iohexol (OMNIPAQUE-350) 350 mg/mL Given injection 100 mL 100 mL, Intravenous, ONCE, 1 dose, Sat05/19/18 at 1100, NOTE: This is a HIGH ALERT Medication., 05/19/2018 11:47 AM CLIENT ADVOCATE 50 mL sodium chloride PF 0.9% injection 50 mL Given 50 mL, Intravenous, ONCE, 1 dose, Sat05/19/18 at 1100, Intra-procedure (IR) in this encounter
--- OUTSIDE RECORDS SUMMARY | 2018-06-24 09:22 | XMS REPORT | Encounter Summary ---
Author Author [facility] Organization [facility] Address Unknown Phone Unavailable Care Team Providers Care Regrinder Operator Name Role Phone Michael Sutton MD Unavailable Unavailable Mary Whittington MD PCP Jessica Valera Unavailable Maggie Puente Unavailable Unavailable Mary Telles APRN Unavailable Bam Ritter MD Unavailable Radha Bo LPN Unavailable Unavailable Jose Sanchez MD Unavailable Encounter Details Care Team Description Date Type Department Abel Poe MD [address] [place] [address] 05/19/[address] [facility] Encounter [facility] [address] [place], [place] [id number] Social History Date Tobacco Use Types Packs/Day [...] three times a day as needed. 12/11/2017 [id number]-[id number] Take 3 300 tablet 5 (VIOKACE) 20,880-78,300- [...]
--- OUTSIDE RECORDS SUMMARY | 2018-06-24 09:22 | XMS REPORT | Encounter Summary ---
Author Author [facility] Organization [facility] Address Unknown Phone Unavailable Care Team Providers Care Superintendent [employer] Name Role Phone Michael Sutton MD Unavailable Unavailable Mary Whittington MD PCP Jessica Valera Unavailable Maggie Puente Unavailable Unavailable Mary Telles APRN Unavailable Bam Ritter MD Unavailable Radha Bo HOGSHEAD COOPER Unavailable Unavailable Jose Sanchez MD Unavailable Reason for Referral * Radiology Services (Routine) Referred By Contact Referred To Contact Status Reason Specialty Diagnoses / [place] [address] [place] [id number] New Request Radiology Diagnoses Malignant neoplasm of kidney, unspecified laterality (HCC) P rocedures CT ABDOMEN W CONTRAST * Radiology Services (Routine) Referred By Contact Referred To Contact Status Reason Specialty Diagnoses / Procedures Abel Poe MD [address] [facility] [address] [place] [phone] New Request Radiology Diagnoses Malignant neoplasm of kidney, unspecified laterality (HCC) P rocedures CT CHEST W CONTRAST Reason for Visit * Reason Comments Heme/Onc Care Encounter Details Care Team Description [place] [address] [place] [address] [place] [address] Malignant neoplasm of kidney, unspecified laterality (HCC) ( Primary Dx) 05/19/2018 Office Visit [facility] [place] [address] [place] [address] Social History Date Tobacco Use Types Packs/Day [...] Taken Vital Sign Reading 05/19/2018 1:06 PM DISTRIBUTION CLERK Blood Pressure 135/79 05/19/2018 1:06 PM DISTRIBUTION CLERK Pulse 81 05/19/2018 1:06 PM DISTRIBUTION CLERK Temperature 36.6 C (97.9 F) 05/19/2018 1:06 PM DISTRIBUTION CLERK Respiratory Rate 18 05/19/2018 1:06 PM DISTRIBUTION CLERK Oxygen Saturation 99% - Inhaled Oxygen - Concentration 05/19/2018 1:06 PM DISTRIBUTION CLERK Weight 121.6 kg (268 lb) 05/19/2018 1:06 PM DISTRIBUTION CLERK Height 157.7 cm (5' 2.09") 05/19/2018 1:06 PM DISTRIBUTION CLERK Body Mass Index 48.88 in this encounter [...] Abel Poe MD - 05/19/2018 1:30 PM DISTRIBUTION CLERK Name: Janeth Rajput : 1985 AGE: 33 [...] to three times a day as needed. fqqatk-ewlhgjrd-[id number] (VIOKACE) 20,880-78,300- 78,300 unit tab Take 3 [...] GI and her surgeon close to home. RIBUTION CLERK in this encounter Plan of Treatment Order [...] Diagnosis POC CREATININE, RAD 05/19/2018 11:18 AM DISTRIBUTION CLERK in this encounter Results * POC CREATININE, RAD (05/19/2018 11:18 AM DISTRIBUTION CLERK) Creatinine, POC 0.8 0.4 - 1.00 MG/DL [facility] Performing Organization Address City/State/Zipcode Phone Number [facility] [address] [place] [address] in this encounter Visit Diagnoses Diagnosis Malignant neoplasm of kidney, unspecified laterality (HCC) - Primary in this encounter
--- NOTE | 2018-06-24 09:44 | ED GU-Female ---
General Chief Complaint: -Female Stated Complaint: PAIN WHILE URINATING;LOWER BACK PAIN Nursing Triage Note: PT PRESENTS TO ER WITH COMPLAINT OF PAINFUL URINATION AND LOW BACK PAIN. Nursing Sepsis Screen: No Definite Risk Source: patient Exam Limitations: no limitations History of Present Illness Date Seen by Provider: Jun 24, 2018 Time Seen by Provider: 09:33 Initial Comments The patient presents to ER by private conveyance with chief complaint of dysuria since Saturday, 2 days ago. She's not had any fevers chills but she has had some nausea and vomiting. She's also hurt her back recently she says she associates the back pain with her recent vomiting causing a rib pop out of place. She says her back been hurting in her right upper parathoracic spine area since last week or so. She came to the ER for that and was given hydrocodone which did nothing steroids which has not helped and Tylenol. She cannot take any NSAIDs because of her history of surgical kidney resection. She followed up with a chiropractor and they attended several modalities that did not help. She tried muscle relaxants and they did not help. She has not done physical therapy and she has a call in to her primary care doctor's office. She has had this pain in her back before for several years is chronic and just becomes frequently exacerbated. Usually she says the chiropractor helps. No history of kidney stones. Allergies and Home Medications Allergies Coded Allergies: fentanyl (Verified Allergy, Unknown, 02/13/18) meperidine (Verified Allergy, Unknown, 08/20/17) penicillin G (Verified Allergy, Unknown, 08/20/17) vancomycin (Unverified Adverse Reaction, Intermediate, severe itching, ) Home Medications Cyanocobalamin 1,000 Mcg/Ml Inj, 1,000 MCG IJ MONTHLY, (Reported) Estradiol 2 Mg Tablet, 2 MG PO HS, (Reported) Fluoxetine HCl 40 Mg Capsule, 40 MG PO HS, (Reported) Hydrocodone/Acetaminophen 1 Each Tablet, 1 TAB PO Q6H Prescribed by: LINDSEY MARROQUIN on 02/13/18 1335 Hydrocortisone 30 Gm Cream.appl, TOP DAILY PRN for INFLAMMATION, (Reported) Hyoscyamine Sulfate 0.125 Mg Tab.subl, 0.125 MG SL Q6H PRN for CRAMPS Prescribed by: GEORGES FINN on 05/25/18 1131 Lipase/Protease/Amylase 1 Each Tablet, PO UD, (Reported) TAKE 3 TABLETS WITH MEALS AND 2 TABLETS WITH SNACKS (HAS NOT STARTED TAKING DUE TO NOT BEING ABLE TO KEEP ANYTHING DOWN BUT DID OTHER SPATIAL SCIENTIST THE SCRIPT) Ondansetron 8 Mg Tab.rapdis, 8 MG PO BID, (Reported) Ondansetron HCl 8 Mg Tablet, 8 MG PO Q6H Prescribed by: YAN CHAPARRO on 06/01/18 0552 Orphenadrine Citrate 100 Mg Tablet.er, 100 MG PO BID PRN for SPASMS Prescribed by: KIARA CALVERT on 06/17/18 142 Prednisone 20 Mg Tab, 20 MG PO BID Prescribed by: KIARA CALVERT on 06/17/18 142 Promethazine HCl 25 Mg Tablet, 25 MG PO Q6H PRN for NAUSEA/VOMITING-2ND LINE, ( Reported) Promethazine HCl 25 Mg Tablet, 25 MG PO Q6H PRN for NAUSEA/VOMITING Prescribed by: GEORGES FINN on 05/25/18 113 Ropinirole HCl 4 Mg Tablet, 4 MG PO HS, (Reported) Tramadol HCl 50 Mg Tablet, 50 MG PO Q4H Prescribed by: YAN CHAPARRO on 06/01/18 0552 Patient Home Medication List Home Medication List Reviewed: Yes Review of Systems Review of Systems Constitutional: No chills, No fever, No malaise EENTM: No ear pain, No tearing Respiratory: No cough, No phlegm Cardiovascular: No chest pain, No edema Gastrointestinal: see HPI; No abdominal pain, No constipation, No diarrhea; nausea; No vomiting Genitourinary: burning; denies discharge, denies flank pain, denies hematuria Past Nqzfgyj-Xmiudj-Vbwzht Hx Patient Social History Alcohol Use: Denies Use Recreational Drug Use: No Smoking Status: Current Everyday Smoker Type Used: Cigarettes 2nd Hand Smoke Exposure: No Recent Foreign Travel: No Contact w/Someone Who Travel: No Recent Infectious Disease Expo: No Recent Hopitalizations: No Immunizations Up To Date Tetanus Booster (TDap): Unknown PED Vaccines UTD: No Date of Pneumonia Vaccine: May 17, 2012 Date of Influenza Vaccine: Jul 03, 2012 Seasonal Allergies Seasonal Allergies: Yes (MILD) Past Medical History Surgeries: Yes Abdominal, Adenoidectomy, Appendectomy, Gallbladder, 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, Nephrectomy, Orthopedic, Tonsillectomy Respiratory: Yes Asthma Currently Using CPAP: No Currently Using BIPAP: No Cardiac: No Neurological: Yes (RESTLESS LEG SYNDROME) Headaches /Migraines 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: No (HX ENDOMETRIOSIS ) 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 DAYCARE MANAGER History: 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 Sexually Transmitted Disease: No HIV/AIDS: No Genitourinary: Yes (L KIDNEY REMOVED FOR TUMOR-MALIGNANT;) UTI-Chronic Gastrointestinal: Yes Abdominal Hernia, Liver Disease/Jaundice, Pancreatitis, Polyps Musculoskeletal: Yes (COCCYX-REPAIRED, MAY HAVE SIGNS OF ARTHRITIS) Chronic Back Pain Endocrine: Yes (CHRONIC PANCREATITIS; OBESITY) HEENT: No Loss of Vision: Denies Hearing Impairment: Denies Cancer: Yes Kidney Did You Recieve Any Treatments: Yes What Type of Treatment Did You: Surgical Intervention Psychosocial: Yes Anxiety, Depression Integumentary: No Herpes Blood Disorders: No Adverse Reaction/Blood Tranf: No (N/A) Family Medical History Cardiovascular disease 19 FATHER Completed stroke 19 FATHER Diabetes mellitus 19 FATHER Hypercholesterolemia 19 FATHER 19 MOTHER Hypertension 19 FATHER 19 MOTHER Neoplasm 19 MOTHER Psychosocial problem 19 FATHER 19 MOTHER No Pertinent Family Hx, Cancer, Diabetes, Hypertension Physical Exam Vital Signs Vital Signs - First Documented 06/24/18 09:30 Temp 97.5 Pulse 77 Resp 20 B/P (MAP) 140/97 (111) Pulse Ox 97 O2 Delivery Room Air Capillary Refill : Less Than 3 Seconds Height, Weight, BMI Height: 5'2.00" Weight: 260lbs. 0oz. 117.278904lg; 45.8 BMI Method:Stated General Appearance: WD/WN, no apparent distress HEENT: PERRL/EOMI, pharynx normal Neck: non-tender, full range of motion, supple, normal inspection Cardiovascular: normal peripheral pulses, regular rate, rhythm Respiratory: no respiratory distress, no accessory muscle use Gastrointestinal: non tender, soft Back: normal inspection, no CVA tenderness, no vertebral tenderness, other ( right side of her upper thoracic spine has some areas of paraspinous muscle tenderness to palpation. There is no erythema or ecchymosis or evidence of deformity.) Extremities: normal range of motion, non-tender, normal inspection, normal capillary refill Neurologic/Psychiatric: alert, normal mood/affect Progress/Results/Core Measures Suspected Sepsis Recent Fever Within 48 Hours: No Infection Criteria Present: None New/Unexplained Altered Menta: No Sepsis Screen: No Definite Risk SIRS Temperature:97.5 Pulse: 77 Respiratory Rate: 20 Blood Pressure 140 /97 Mean: 111 Results/Orders Lab Results Laboratory Tests Test 06/24/18 09:34 Range/Units Urine Color YELLOW Urine Clarity CLEAR Urine pH 5 5-9 Urine Specific Birney 1.025 H 1.016-1.022 Urine Protein NEGATIVE NEGATIVE Urine Glucose (UA) NEGATIVE NEGATIVE Urine Ketones NEGATIVE NEGATIVE Urine Nitrite NEGATIVE NEGATIVE Urine Bilirubin NEGATIVE NEGATIVE Urine Urobilinogen NORMAL NORMAL MG/DL Urine Leukocyte Esterase NEGATIVE NEGATIVE Urine RBC (Auto) NEGATIVE NEGATIVE Urine RBC NONE /HPF Urine WBC RARE /HPF Urine Squamous Epithelial Cells 25-50 H /HPF Urine Crystals NONE /LPF Urine Bacteria MODERATE H /HPF Urine Casts NONE /LPF Urine Mucus NEGATIVE /LPF Urine Culture Indicated NO My Orders Orders - MAKAYLA HAWKINS Ua Culture If Indicated (06/24/18 09:39) Vital Signs/I&O 06/24/18 09:30 Temp 97.5 Pulse 77 Resp 20 B/P (MAP) 140/97 (111) Pulse Ox 97 O2 Delivery Room Air Capillary Refill : Less Than 3 Seconds Blood Pressure Mean: 111 Progress Note : Time: 09:44 Progress Note Plan to check a urinalysis. Since she's been on steroids other possibility would be possible yeast infection. Her back pain is chronic and ongoing and would pry be amenable to some physical therapy if she can get in with her primary care office and get that set up. We have discussed conservative management with heat, topical creams, Tylenol and follow-up. Departure Impression Primary Impression: Urethritis Additional Impression: Chronic right-sided thoracic back pain Disposition: 01 HOME, SELF-CARE Condition: Stable Departure-Patient Inst. Decision time for Depature: 10:35 Referrals: CARMEN GIBBS MD (PCP/Family) Primary Care Physician Patient Instructions: Urethritis (DC) Add. Discharge Instructions: Drink lots of fluids. Discontinue the use of heart soaps or any chemical wipes, baby wipes etc. Avoid bubble baths. Follow-up with your TAX MANAGER at your appointment tomorrow and discuss possible causes of your symptoms of dysuria. For your back pain use the Tylenol, topical creams, heat and ice alternated and talk to primary care about a referral to physical therapy. You should also consider things such as acupuncture. All discharge instructions reviewed with patient and/or family. Voiced understanding. MAKAYLA HAWKINS 8, 2019 09:44
[2018-06-24 10:04] LABS: BILIRUBIN,URINE NEGATIVE (NEGATIVE); CLARITY,URINE CLEAR; COLOR,URINE YELLOW; GLUCOSE, URINE (UA) NEGATIVE (NEGATIVE); KETONES,URINE NEGATIVE (NEGATIVE); LEUKOCYTE ESTERASE ,URINE NEGATIVE (NEGATIVE); NITRITE,URINE NEGATIVE (NEGATIVE); PH,URINE 5 (5-9); PROTEIN,URINE NEGATIVE (NEGATIVE); UROBILINOGEN,URINE NORMAL (NORMAL)
[2018-06-24 10:12] LABS: BACTERIA,URINE MODERATE /HPF; SQUAMOUS EPITHELIAL CELL,UR 25-50 /HPF; WBC,URINE RARE /HPF
[2018-06-24 10:52] VITALS: BP 140/97
== END 2018-06-24 10:52 | disposition home or self-care (01) ==
LOC: EDUNIT# 09:15 → ER 09:16
DX: N34.2 Other urethritis (principal); M54.6 Pain in thoracic spine; G89.29 Other chronic pain; J45.909 Unspecified asthma, uncomplicated; G43.909 Migraine, unspecified, not intractable, without status migrainosus; G25.81 Restless legs syndrome; E66.9 Obesity, unspecified; F41.9 Anxiety disorder, unspecified; F32.9 Major depressive disorder, single episode, unspecified; F17.210 Nicotine dependence, cigarettes, uncomplicated; Z88.0 Allergy status to penicillin; Z86.010 Personal history of colon polyps; Z86.19 Personal history of other infectious and parasitic diseases; Z87.19 Personal history of other diseases of the digestive system; Z87.440 Personal history of urinary (tract) infections; Z82.49 Family history of ischemic heart disease and other diseases of the circulatory system; Z68.42 Body mass index [BMI] 45.0-49.9, adult; Z85.528 Personal history of other malignant neoplasm of kidney; Z88.8 Allergy status to other drugs, medicaments and biological substances; Z90.49 Acquired absence of other specified parts of digestive tract; Z90.89 Acquired absence of other organs; Z90.710 Acquired absence of both cervix and uterus; Z79.51 Long term (current) use of inhaled steroids; Z79.52 Long term (current) use of systemic steroids; Z90.5 Acquired absence of kidney
CPT/HCPCS: 81000; 99282

== ENCOUNTER 2018-07-01 08:42 | Emergency (ER) | payer MEDICARE, MEDICAID ==
[~2018-07-01] VITALS: Ht 157.5 cm; Wt 108.9 kg
--- NOTE | 2018-07-01 09:31 | NUR ---
LAB IN ROOM DRAWING AT THIS TIME.
[2018-07-01 10:16] LABS: BILIRUBIN,URINE NEGATIVE (NEGATIVE); CLARITY,URINE CLEAR; COLOR,URINE YELLOW; GLUCOSE, URINE (UA) NEGATIVE (NEGATIVE); KETONES,URINE NEGATIVE (NEGATIVE); LEUKOCYTE ESTERASE ,URINE NEGATIVE (NEGATIVE); NITRITE,URINE NEGATIVE (NEGATIVE); PH,URINE 6 (5-9); PROTEIN,URINE 1+ (NEGATIVE); UROBILINOGEN,URINE NORMAL (NORMAL)
[2018-07-01 10:25] LABS: BACTERIA,URINE LARGE /HPF
--- NOTE | 2018-07-01 10:28 | NUR ---
DR NOTIFIED PT WOULD LIKE SOMETHING FOR NAUSEA.
[2018-07-01 10:29] LABS: BASOPHILS % (AUTO) 0 % (0-10); EOSINOPHILS # (AUTO) 0.2 10^3/uL (0.0-0.3); EOSINOPHILS % (AUTO) 2 % (0-10); HEMATOCRIT 39 % (35-52); HEMOGLOBIN 12.4 G/DL (11.5-16.0); LYMPHOCYTES # (AUTO) 2.8 X 10^3 (1.0-4.0); LYMPHOCYTES % (AUTO) 21 % (12-44); MEAN CORPUSCULAR HEMOGLOBIN 27 PG (25-34); MEAN CORPUSCULAR HGB CONC 32 G/DL (32-36); MEAN CORPUSCULAR VOLUME 83 FL (80-99); MEAN PLATELET VOLUME 9.4 FL (7.4-10.4); MONOCYTES # (AUTO) 0.6 X 10^3 (0.0-1.0); MONOCYTES % (AUTO) 5 % (0-12); NEUTROPHILS # (AUTO) 9.7 X 10^3 (1.8-7.8); NEUTROPHILS % (AUTO) 73 % (42-75); PLATELET COUNT 308 10^3/uL (130-400); RED BLOOD COUNT 4.64 10^6/uL (4.35-5.85); RED CELL DISTRIBUTION WIDTH 14.3 % (10.0-14.5); WHITE BLOOD COUNT 13.3 10^3/uL (4.3-11.0)
[2018-07-01] MEDS ORDERED: ONDANSETRON 4 MG/2 ML (SDV) Z0FRAN IVP ONE (10:30)
[2018-07-01 10:40] LABS: ALANINE AMINOTRANSFERASE 17 U/L (0-55); ALBUMIN 3.6 GM/DL (3.2-4.5); ALKALINE PHOSPHATASE 60 U/L (40-136); BILIRUBIN,TOTAL 0.3 MG/DL (0.1-1.0); BUN/CREATININE RATIO 14; CALCIUM 9.4 MG/DL (8.5-10.1); CARBON DIOXIDE 23 MMOL/L (21-32); CHLORIDE 103 MMOL/L (98-107); CREATININE SERUM 0.97 MG/DL (0.60-1.30); GFR ESTIMATED > 60; GLUCOSE 93 MG/DL (70-105); POTASSIUM 4.3 MMOL/L (3.6-5.0); SODIUM 138 MMOL/L (135-145); TOTAL PROTEIN 7.4 GM/DL (6.4-8.2)
--- NOTE | 2018-07-01 10:52 | ED Abdominal Pain ---
General Chief Complaint: Abdominal/GI Problems Stated Complaint: ABD PAIN;VOMITING;COUGH Nursing Triage Note: ARRIVED VIA AMB WITH COMPLAINTS OF LEFT FLANK PAIN AND A BURNING SENSATION WHEN SHE PEES STARTING YESTERDAY. ALSO COMPLAINS OF VOMITING. STATES SHE HAS HAD A COLD FOR 2 WEEKS. Sepsis Screen: No Definite Risk Source of Information: Patient Exam Limitations: No Limitations History of Present Illness Date Seen by Provider: Jul 01, 2018 Time Seen by Provider: 10:43 Initial Comments The patient presents to ER by private conveyance with chief complaint that last night she started having some left-sided abdominal pain as well as nausea vomiting. It is not Better today she's taken some of her own Zofran sublingual at home with only marginal success. She has a history of pancreatitis and has a scheduled EGD annually with the next one being about 4 weeks. She also had some infections in her abdominal wall recently. She has not been on antibiotic for over a month. She had a episode of back pain and was put on 5 days of prednisone and then started getting some green discharge from her nose and cough and so she went to the walk-in clinic and was given another 10 days of steroids. She been on a total of 15 days of steroids. She denies any fevers or chills. She's had her appendix, gallbladder, uterus surgically removed. Allergies and Home Medications Allergies Coded Allergies: fentanyl (Verified Allergy, Unknown, 02/13/18) meperidine (Verified Allergy, Unknown, 08/20/17) penicillin G (Verified Allergy, Unknown, 08/20/17) vancomycin (Unverified Adverse Reaction, Intermediate, severe itching, ) Home Medications Cyanocobalamin 1,000 Mcg/Ml Inj, 1,000 MCG IJ MONTHLY, (Reported) Estradiol 2 Mg Tablet, 2 MG PO HS, (Reported) Fluoxetine HCl 40 Mg Capsule, 40 MG PO HS, (Reported) Hydrocodone/Acetaminophen 1 Each Tablet, 1 TAB PO Q6H Prescribed by: LINDSEY MARROQUIN on 02/13/18 1335 Hydrocortisone 30 Gm Cream.appl, TOP DAILY PRN for INFLAMMATION, (Reported) Hyoscyamine Sulfate 0.125 Mg Tab.subl, 0.125 MG SL Q6H PRN for CRAMPS Prescribed by: GEORGES FINN on 05/25/18 1131 Lipase/Protease/Amylase 1 Each Tablet, PO UD, (Reported) TAKE 3 TABLETS WITH MEALS AND 2 TABLETS WITH SNACKS (HAS NOT STARTED TAKING DUE TO NOT BEING ABLE TO KEEP ANYTHING DOWN BUT 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) Ondansetron 8 Mg Tab.rapdis, 8 MG PO BID, (Reported) Ondansetron HCl 8 Mg Tablet, 8 MG PO Q6H Prescribed by: YAN CHAPARRO on 06/01/18 0552 Orphenadrine Citrate 100 Mg Tablet.er, 100 MG PO BID PRN for SPASMS Prescribed by: KIARA CALVERT on 06/17/18 1421 Prednisone 20 Mg Tab, 20 MG PO BID Prescribed by: KIARA CALVERT on 06/17/18 1421 Promethazine HCl 25 Mg Tablet, 25 MG PO Q6H PRN for NAUSEA/VOMITING-2ND LINE, ( Reported) Promethazine HCl 25 Mg Tablet, 25 MG PO Q6H PRN for NAUSEA/VOMITING Prescribed by: GEORGES FINN on 05/25/18 1131 Promethazine HCl 25 Mg Tablet, 25 MG PO Q6H PRN for NAUSEA/VOMITING Prescribed by: MAKAYLA HAWKINS on 07/01/18 1151 Ropinirole HCl 4 Mg Tablet, 4 MG PO HS, (Reported) Tramadol HCl 50 Mg Tablet, 50 MG PO Q4H Prescribed by: YAN CHAPARRO on 06/01/18 0552 Patient Home Medication List Home Medication List Reviewed: Yes Review of Systems Review of Systems Constitutional: No chills, No fever, No malaise EENTM: No Blurred Vision, No Double Vision Respiratory: Denies Cough, Denies Shortness of Air Cardiovascular: Denies Chest Pain, Denies Lightheadedness Gastrointestinal: Denies Abdomen Distended; Abdominal Pain; Denies Constipated , Denies Diarrhea; Nausea, Vomiting Genitourinary: Denies Burning, Denies Discharge, Denies Drainage Musculoskeletal: No back pain, No joint swelling Skin: No pruritus, No rash Past Vuhxudr-Unvmcr-Sycdyw Hx Patient Social History Alcohol Use: Denies Use Recreational Drug Use: No Smoking Status: Never a Smoker Type Used: Cigarettes 2nd Hand Smoke Exposure: No Recent Foreign Travel: No Contact w/Someone Who Travel: No Recent Infectious Disease Expo: No Recent Hopitalizations: No Immunizations Up To Date Tetanus Booster (TDap): Unknown PED Vaccines UTD: No Date of Pneumonia Vaccine: May 17, 2012 Date of Influenza Vaccine: Jul 03, 2012 Seasonal Allergies Seasonal Allergies: Yes (MILD) Past Medical History Surgeries: Yes Abdominal, Adenoidectomy, Appendectomy, Gallbladder, 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, Nephrectomy, Orthopedic, Tonsillectomy Respiratory: Yes Asthma Currently Using CPAP: No Currently Using BIPAP: No Cardiac: No Neurological: Yes (RESTLESS LEG SYNDROME) Headaches /Migraines 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: No (HX ENDOMETRIOSIS ) 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 Sexually Transmitted Disease: No HIV/AIDS: No Genitourinary: Yes (L KIDNEY REMOVED FOR TUMOR-MALIGNANT;) UTI-Chronic Gastrointestinal: Yes Abdominal Hernia, Liver Disease/Jaundice, Pancreatitis, Polyps Musculoskeletal: Yes (COCCYX-REPAIRED, MAY HAVE SIGNS OF ARTHRITIS) Chronic Back Pain Endocrine: Yes (CHRONIC PANCREATITIS; OBESITY) HEENT: No Loss of Vision: Denies Hearing Impairment: Denies Cancer: Yes Kidney Did You Recieve Any Treatments: Yes What Type of Treatment Did You: Surgical Intervention Psychosocial: Yes Anxiety, Depression Integumentary: No Herpes Blood Disorders: No Adverse Reaction/Blood Tranf: No (N/A) Family Medical History Cardiovascular disease 19 FATHER Completed stroke 19 FATHER Diabetes mellitus 19 FATHER Hypercholesterolemia 19 FATHER 19 MOTHER Hypertension 19 FATHER 19 MOTHER Neoplasm 19 MOTHER Psychosocial problem 19 FATHER 19 MOTHER No Pertinent Family Hx, Cancer, Diabetes, Hypertension Physical Exam Vital Signs Vital Signs - First Documented 07/01/18 09:10 Temp 97.1 Pulse 89 Resp 16 B/P (MAP) 135/85 (102) Pulse Ox 97 O2 Delivery Room Air Capillary Refill : Less Than 3 Seconds Height/Weight/BMI Height: 5'2.00" Weight: 240lbs. 0oz. 108.366910iv; 45.8 BMI Method:Stated General Appearance: WD/WN, mild distress HEENT: PERRL/EOMI, normal ENT inspection, pharynx normal Respiratory: chest non-tender, lungs clear, normal breath sounds, no respiratory distress, no accessory muscle use Cardiovascular: normal peripheral pulses, regular rate, rhythm Peripheral Pulses: 2+ Dorsalis Pedis (R), 2+ Left Dors-Pedis (L), 2+ Radial Pulses (R), 2+ Radial Pulses (L) Gastrointestinal: normal bowel sounds, soft, no organomegaly, guarding (mild left-sided); No rebound; tenderness (left upper and lower quadrant), other (no palpable hernia or fluctuance) Neurologic/Psychiatric: alert, normal mood/affect, oriented x 3 Skin: normal color, warm/dry Progress/Results/Core Measures Results/Orders Lab Results Laboratory Tests Test 07/01/18 09:18 07/01/18 09:33 Range/Units Urine Color YELLOW Urine Clarity CLEAR Urine pH 6 5-9 Urine Specific [place] 1.025 H 1.016-1.022 Urine Protein 1+ H NEGATIVE Urine Glucose (UA) NEGATIVE NEGATIVE Urine Ketones NEGATIVE NEGATIVE Urine Nitrite NEGATIVE NEGATIVE Urine Bilirubin NEGATIVE NEGATIVE Urine Urobilinogen NORMAL NORMAL MG/DL Urine Leukocyte Esterase NEGATIVE NEGATIVE Urine RBC (Auto) NEGATIVE NEGATIVE Urine RBC NONE /HPF Urine WBC NONE /HPF Urine Squamous Epithelial Cells 10-25 H /HPF Urine Crystals NONE /LPF Urine Bacteria LARGE H /HPF Urine Casts NONE /LPF Urine Mucus NEGATIVE /LPF Urine Culture Indicated NO White Blood Count 13.3 H 4.3-11.0 10^3/uL Red Blood Count 4.64 4.35-5.85 10^6/uL Hemoglobin 12.4 11.5-16.0 G/DL Hematocrit 39 35-52 % Mean Corpuscular Volume 83 80-99 FL Mean Corpuscular Hemoglobin 27 25-34 PG Mean Corpuscular Hemoglobin Concent 32 32-36 G/DL Red Cell Distribution Width 14.3 10.0-14.5 % Platelet Count 308 130-400 10^3/uL Mean Platelet Volume 9.4 7.4-10.4 FL Neutrophils (%) (Auto) 73 42-75 % Lymphocytes (%) (Auto) 21 12-44 % Monocytes (%) (Auto) 5 0-12 % Eosinophils (%) (Auto) 2 0-10 % Basophils (%) (Auto) 0 0-10 % Neutrophils # (Auto) 9.7 H 1.8-7.8 X 10^3 Lymphocytes # (Auto) 2.8 1.0-4.0 X 10^3 Monocytes # (Auto) 0.6 0.0-1.0 X 10^3 Eosinophils # (Auto) 0.2 0.0-0.3 10^3/uL Basophils # (Auto) 0.0 0.0-0.1 10^3/uL Sodium Level 138 135-145 MMOL/L Potassium Level 4.3 3.6-5.0 MMOL/L Chloride Level 103 98-107 MMOL/L Carbon Dioxide Level 23 21-32 MMOL/L Anion Gap 12 5-14 MMOL/L Blood Urea Nitrogen 14 7-18 MG/DL Creatinine 0.97 0.60-1.30 MG/DL Estimat Glomerular Filtration Rate > 60 BUN/Creatinine Ratio 14 Glucose Level 93 70-105 MG/DL Calcium Level 9.4 8.5-10.1 MG/DL Corrected Calcium 9.7 8.5-10.1 MG/DL Total Bilirubin 0.3 0.1-1.0 MG/DL Aspartate Amino Transf (AST/SGOT) 24 5-34 U/L Alanine Aminotransferase (ALT/SGPT) 17 0-55 U/L Alkaline Phosphatase 60 40-136 U/L Total Protein 7.4 6.4-8.2 GM/DL Albumin 3.6 3.2-4.5 GM/DL Lipase 47 8-78 U/L My Orders Orders - MAKAYLA HAWKINS Ua Culture If Indicated (07/01/18 10:10) Cbc With Automated Diff (07/01/18 10:10) Comprehensive Metabolic Panel (07/01/18 10:10) Ondansetron Injection (Zofran Injectio (07/01/18 10:30) Morphine Injection (Morphine Injection (07/01/18 11:00) Lipase (07/01/18 10:48) Influenza A And B Antigens (07/01/18 10:52) Saline Lock/Iv-Start (07/01/18 10:53) Ns Iv 1000 Ml (Sodium Chloride 0.9%) (07/01/18 10:53) Contrast Received (Contrast Received) (07/01/18 11:15) Ct Abdomen/Pelvis Wo (07/01/18 10:48) Promethazine Injection (Phenergan Injec (07/01/18 12:00) Medications Given in ED Current Medications Medications Dose Ordered Sig/Neal Route Start Time Stop Time Status Last Admin Dose Admin Morphine Sulfate 4 mg ONCE ONCE IVP 07/01/18 11:00 07/01/18 11:01 DC 07/01/18 11:37 4 MG Ondansetron HCl 8 mg ONCE ONCE IVP 07/01/18 10:30 07/01/18 10:31 DC 07/01/18 10:34 8 MG Promethazine HCl 25 mg ONCE ONCE IVP 07/01/18 12:00 07/01/18 12:04 DC 07/01/18 12:11 25 MG Vital Signs/I&O 07/01/18 09:10 Temp 97.1 Pulse 89 Resp 16 B/P (MAP) 135/85 (102) Pulse Ox 97 O2 Delivery Room Air Blood Pressure Mean: 102 Progress Progress Note #1: Time: 11:42 Progress Note Patient having a fair amount of pain nausea over the left side where she had previous collections of abscess in her abdominal wall. It's tender to light touch. Could be gastroenteritis viral or could be related to her recent steroid use however we'll going obtain a CT scan. We have given her some Zofran and fentanyl for pain. Labs are unrevealing. Progress Note #2: Time: 11:49 Progress Note The patient's pain is controlled nausea is improved however she still having some nausea. We'll going put some Phenergan in her fluids him and let her go home. She probably has a viral gastroenteritis and this has resulted in either some abdominal wall pain secondary to the vomiting versus just gastroenteritis. Diagnostic Imaging Diagonstic Imaging: CT (without contrast) Plain Films/CT/US/NM/MRI: abdomen, pelvis Comments [facility]. [place], [place] NAME: JAYLYN DELGADO [facility] REC#: [id number] PT STATUS: REG ER : 1985 PHYSICIAN: MAKAYLA HAWKINS MD ADMIT DATE: 07/01/18/ER Draft Date of Exam:07/01/18 CT ABDOMEN/PELVIS WO PROCEDURE: CT abdomen and pelvis without contrast. TECHNIQUE: Multiple contiguous axial images were obtained through the abdomen and pelvis without the use of intravenous contrast. INDICATION: Pain with nausea and vomiting COMPARISON: 06/01/2018 FINDINGS: There is some induration and scarring of the subcutaneous fat in the left lower quadrant at the site of previous drain and fluid collection noted. No evidence for residual or recurrent fluid collection or abscess. No full-thickness, abdominal wall defect or hernia. No bowel, biliary, urinary tract obstruction. Left kidney absent. The unobstructed right kidney unremarkable. No perienteric or pericolonic edema. Some chronic at calcified nodules stable. No suspicious mass. IMPRESSION: Some scarring in the subcutaneous fat in the left lower quadrant without residual or recurrent fluid collection. No obstructive features. The intra-or retroperitoneal inflammatory process or acute findings identified. Dictated on workstation # [id number] Dict: 07/01/18 1125 Trans: 07/01/18 1129 [facility] [id number] Interpreted by: ISABELLA RAHMAN Electronically signed by: Reviewed: Reviewed by Me Departure Impression Primary Impression: Abdominal wall pain Additional Impression: Viral gastroenteritis Disposition: HOME, SELF-CARE Condition: Improved Departure-Patient Inst. Decision time for Depature: 12:21 Referrals: CARMEN GIBBS MD (PCP/Family) Primary Care Physician Patient Instructions: [id number] Add. Discharge Instructions: Follow-up next week if not improving. Tinea drink plenty fluids and use the Zofran as well as Phenergan as necessary to control your nausea. Some heat and/ or Tylenol would be useful for your abdominal wall pain. All discharge instructions reviewed with patient and/or family. Voiced understanding. Scripts Promethazine HCl (Promethazine Tablet) 25 Mg Tablet 25 MG PO Q6H PRN for NAUSEA/VOMITING for 7 Days, #20 TAB 0 Refills Prov: MAKAYLA HAWKINS 07/01/18 MAKAYLA HAWKINS Jul 01, 2018 10:52
[2018-07-01] MEDS ORDERED: NS IV 1000 ML 1,000 ML IV SCH (10:53)
[2018-07-01] MEDS ORDERED: morphine INJ 10 MG/ML 1ML (SYR OR VIAL) IVP ONE (11:00)
[2018-07-01] MEDS ORDERED: NS 100 ML (IVPB) BAG IV ONE (11:15)
[2018-07-01] MEDS ORDERED: RECEIVED CONTRAST (Hold Metformin) IV SCH (11:15)
[2018-07-01] MEDS ORDERED: IOHEXOL 350 MG/ML 100 ML (OMNIPAQUE 350) VIAL IV ONE (11:15)
--- NOTE | 2018-07-01 11:29 | Diagnostic Imaging Report ---
PROCEDURE: CT abdomen and pelvis without contrast. TECHNIQUE: Multiple contiguous axial images were obtained through the abdomen and pelvis without the use of intravenous contrast. INDICATION: Pain with nausea and vomiting COMPARISON: 06/01/2018 FINDINGS: There is some induration and scarring of the subcutaneous fat in the left lower quadrant at the site of previous drain and fluid collection noted. No evidence for residual or recurrent fluid collection or abscess. No full-thickness, abdominal wall defect or hernia. No bowel, biliary, urinary tract obstruction. Left kidney absent. The unobstructed right kidney unremarkable. No perienteric or pericolonic edema. Some chronic at calcified nodules stable. No suspicious mass. IMPRESSION: Some scarring in the subcutaneous fat in the left lower quadrant without residual or recurrent fluid collection. No obstructive features. The intra-or retroperitoneal inflammatory process or acute findings identified. Dictated by: Dictated on workstation # [id number]
[2018-07-01] MEDS ORDERED: PROM25TA14 PO (11:51)
[2018-07-01] MEDS ORDERED: PROMETHAZINE INJ 25 MG/ML (PHENERGAN) AMP IVP ONE (12:00)
[2018-07-01 14:08] VITALS: BP 135/85
== END 2018-07-01 14:07 | disposition home or self-care (01) ==
LOC: EDUNIT# 08:42 → ER 08:43
DX: A08.4 Viral intestinal infection, unspecified (principal); J45.909 Unspecified asthma, uncomplicated; G43.909 Migraine, unspecified, not intractable, without status migrainosus; G25.81 Restless legs syndrome; E66.9 Obesity, unspecified; F41.9 Anxiety disorder, unspecified; F32.9 Major depressive disorder, single episode, unspecified; Z86.19 Personal history of other infectious and parasitic diseases; Z85.528 Personal history of other malignant neoplasm of kidney; Z86.010 Personal history of colon polyps; Z82.49 Family history of ischemic heart disease and other diseases of the circulatory system; Z68.42 Body mass index [BMI] 45.0-49.9, adult; Z87.440 Personal history of urinary (tract) infections; Z88.8 Allergy status to other drugs, medicaments and biological substances; Z88.0 Allergy status to penicillin; Z87.19 Personal history of other diseases of the digestive system; Z90.49 Acquired absence of other specified parts of digestive tract; Z90.89 Acquired absence of other organs; Z79.52 Long term (current) use of systemic steroids; Z90.710 Acquired absence of both cervix and uterus; Z90.5 Acquired absence of kidney
CPT/HCPCS: 36415; 74176; 80053; 81000; 83690; 85025

== ENCOUNTER → 2018-07-05 | Emergency (ER) | payer MEDICARE, MEDICAID | LOC: ER 10:10 ==

== ENCOUNTER 2018-07-07 06:09 | Emergency (ER) | payer MEDICARE, MEDICAID ==
[~2018-07-07] VITALS: Ht 157.5 cm; Wt 108.9 kg
[~2018-07-07 06:09] MED LIST changes: +CHOL200014 PO; -CHOL200085 PO; +METR-145 PO; -METR-197 PO
[2018-07-07] MEDS ORDERED: ASPIRIN 81 MG CHEW (CHILDREN'S ASA) ONE (06:31)
[2018-07-07 06:45] LABS: BASOPHILS % (AUTO) 0 % (0-10); EOSINOPHILS # (AUTO) 0.2 10^3/uL (0.0-0.3); EOSINOPHILS % (AUTO) 2 % (0-10); HEMATOCRIT 37 % (35-52); HEMOGLOBIN 11.8 G/DL (11.5-16.0); LYMPHOCYTES # (AUTO) 2.6 X 10^3 (1.0-4.0); LYMPHOCYTES % (AUTO) 26 % (12-44); MEAN CORPUSCULAR HEMOGLOBIN 27 PG (25-34); MEAN CORPUSCULAR HGB CONC 32 G/DL (32-36); MEAN CORPUSCULAR VOLUME 84 FL (80-99); MEAN PLATELET VOLUME 9.2 FL (7.4-10.4); MONOCYTES # (AUTO) 0.5 X 10^3 (0.0-1.0); MONOCYTES % (AUTO) 5 % (0-12); NEUTROPHILS # (AUTO) 6.4 X 10^3 (1.8-7.8); NEUTROPHILS % (AUTO) 66 % (42-75); PLATELET COUNT 300 10^3/uL (130-400); RED BLOOD COUNT 4.42 10^6/uL (4.35-5.85); RED CELL DISTRIBUTION WIDTH 14.4 % (10.0-14.5); WHITE BLOOD COUNT 9.7 10^3/uL (4.3-11.0)
[2018-07-07] MEDS ORDERED: ASPIRIN 81 MG CHEW (CHILDREN'S ASA) PO ONE (06:45)
[2018-07-07 06:50] LABS: INR 0.9 (0.8-1.4)
[2018-07-07] MEDS ORDERED: morphine INJ 10 MG/ML 1ML (SYR OR VIAL) IVP STA ×2 (06:55→09:28)
[2018-07-07 06:59] LABS: ALANINE AMINOTRANSFERASE 16 U/L (0-55); ALBUMIN 3.6 GM/DL (3.2-4.5); ALKALINE PHOSPHATASE 59 U/L (40-136); BILIRUBIN,TOTAL 0.2 MG/DL (0.1-1.0); BUN/CREATININE RATIO 12; CALCIUM 8.7 MG/DL (8.5-10.1); CARBON DIOXIDE 23 MMOL/L (21-32); CHLORIDE 105 MMOL/L (98-107); CREATININE SERUM 0.81 MG/DL (0.60-1.30); GFR ESTIMATED > 60; GLUCOSE 110 MG/DL (70-105); MAGNESIUM 2.1 MG/DL (1.8-2.4); POTASSIUM 3.8 MMOL/L (3.6-5.0); SODIUM 137 MMOL/L (135-145); TOTAL PROTEIN 7.1 GM/DL (6.4-8.2)
[2018-07-07 07:06] LABS: MYOGLOBIN SERUM 34.2 NG/ML (10.0-92.0)
--- NOTE | 2018-07-07 07:06 | ED Chest Pain ---
General Stated Complaint: RT ARM PAIN,CHEST PAIN Source: patient Exam Limitations: no limitations History of Present Illness Date Seen by Provider: Jul 07, 2018 Time Seen by Provider: 06:45 Initial Comments Here with report of persistent right arm/shoulder pain and now chest pain. Chest pain started yesterday. It seems to be related with the shoulder pain. Denies nausea or vomiting. This is not relieved with her typical hydrocodone and down the muscle relaxers are not working either. Denies breathing problems. Denies injury. Did see a chiropractor recently for this and that has not helped the pain. Was also seen here. Timing/Duration: 1 week, getting worse Severity/Quality: moderate, severe Location: shoulder (right) Radiation: other Activities at Onset: none Prior CP/Workup: echocardiography, stress test Modifying Factors: improves with rest ASA po LUMBER STRAIGHTENER: No NTG SL LUMBER STRAIGHTENER: No Associated Symptoms: No abdominal pain, No back pain, No fever/chills, No nausea/vomiting, No shortness of breath, No weakness Allergies and Home Medications Allergies Coded Allergies: fentanyl (Verified Allergy, Unknown, 02/13/18) meperidine (Verified Allergy, Unknown, 08/20/17) penicillin G (Verified Allergy, Unknown, 08/20/17) vancomycin (Unverified Adverse Reaction, Intermediate, severe itching, ) Home Medications Cyanocobalamin 1,000 Mcg/Ml Inj, 1,000 MCG IJ MONTHLY, (Reported) Cyclobenzaprine HCl 10 Mg Tablet, 10 MG PO Q8H Prescribed by: DEMETRIO KAY on 07/05/18 1232 Estradiol 2 Mg Tablet, 2 MG PO HS, (Reported) Fluoxetine HCl 40 Mg Capsule, 40 MG PO HS, (Reported) Hydrocodone/Acetaminophen 1 Each Tablet, 1 TAB PO Q6H Prescribed by: LINDSEY MARROQUIN on 02/13/18 1335 Hydrocortisone 30 Gm Cream.appl, TOP DAILY PRN for INFLAMMATION, (Reported) Hyoscyamine Sulfate 0.125 Mg Tab.subl, 0.125 MG SL Q6H PRN for CRAMPS Prescribed by: GEORGES FINN on 05/25/18 1131 Lipase/Protease/Amylase 1 Each Tablet, PO UD, (Reported) TAKE 3 TABLETS WITH MEALS AND 2 TABLETS WITH SNACKS (HAS NOT STARTED TAKING DUE TO NOT BEING ABLE TO KEEP ANYTHING DOWN BUT DID ANGLE SHEAR OPERATOR THE SCRIPT) Ondansetron 8 Mg Tab.rapdis, 8 MG PO BID, (Reported) Ondansetron HCl 8 Mg Tablet, 8 MG PO Q6H Prescribed by: YAN CHAPARRO on 06/01/18 0552 Orphenadrine Citrate 100 Mg Tablet.er, 100 MG PO BID PRN for SPASMS Prescribed by: KIARA CALVERT on 06/17/18 142 Prednisone 20 Mg Tab, 20 MG PO BID Prescribed by: KIARA CALVERT on 06/17/18 1421 Promethazine HCl 25 Mg Tablet, 25 MG PO Q6H PRN for NAUSEA/VOMITING-2ND LINE, ( Reported) Promethazine HCl 25 Mg Tablet, 25 MG PO Q6H PRN for NAUSEA/VOMITING Prescribed by: GEORGES FINN on 05/25/18 1131 Promethazine HCl 25 Mg Tablet, 25 MG PO Q6H PRN for NAUSEA/VOMITING Prescribed by: MAKAYLA HAWKINS on 07/01/18 115 Ropinirole HCl 4 Mg Tablet, 4 MG PO HS, (Reported) Tramadol HCl 50 Mg Tablet, 50 MG PO Q4H Prescribed by: YAN CHAPARRO on 06/01/18 0552 Patient Home Medication List Home Medication List Reviewed: Yes Review of Systems Review of Systems Constitutional: see HPI; No chills, No fever EENTM: No Symptoms Reported Respiratory: Denies Cough, Denies Shortness of Air Cardiovascular: Chest Pain; Denies Edema Gastrointestinal: Denies Abdominal Pain, Denies Nausea, Denies Vomiting Genitourinary: No Symptoms Reported Musculoskeletal: see HPI, joint pain, muscle pain, muscle stiffness Skin: no symptoms reported Psychiatric/Neurological: Denies Numbness; Tingling (right hand) Endocrine: No Symptoms Reported Hematologic/Lymphatic: No Symptoms Reported All Other Systems Reviewed Negative Unless Noted: Yes Past Jtfckwj-Hpaxba-Oezlzr Hx Past Med/Social Hx: Reviewed Nursing Past Med/Soc Hx Patient Social History Alcohol Use: Denies Use Recreational Drug Use: No Smoking Status: Current Everyday Smoker Type Used: Cigarettes 2nd Hand Smoke Exposure: No Recent Foreign Travel: No Contact w/Someone Who Travel: No Recent Hopitalizations: No Immunizations Up To Date Tetanus Booster (TDap): Unknown PED Vaccines UTD: No Date of Pneumonia Vaccine: May 17, 2012 Date of Influenza Vaccine: Jul 03, 2012 Seasonal Allergies Seasonal Allergies: Yes (MILD) Past Medical History Surgeries: Yes Abdominal, Adenoidectomy, Appendectomy, Gallbladder, 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, Nephrectomy, Orthopedic, Tonsillectomy Respiratory: Yes Asthma Currently Using CPAP: No Currently Using BIPAP: No Cardiac: No Neurological: Yes (RESTLESS LEG SYNDROME) Headaches /Migraines 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: No (HX ENDOMETRIOSIS ) 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 Sexually Transmitted Disease: No HIV/AIDS: No Genitourinary: Yes (L KIDNEY REMOVED FOR TUMOR-MALIGNANT;) UTI-Chronic Gastrointestinal: Yes Abdominal Hernia, Liver Disease/Jaundice, Pancreatitis, Polyps Musculoskeletal: Yes (COCCYX-REPAIRED, MAY HAVE SIGNS OF ARTHRITIS) Chronic Back Pain Endocrine: Yes (CHRONIC PANCREATITIS; OBESITY) HEENT: No Loss of Vision: Denies Hearing Impairment: Denies Cancer: Yes Kidney Did You Recieve Any Treatments: Yes What Type of Treatment Did You: Surgical Intervention Psychosocial: Yes Anxiety, Depression Integumentary: No Herpes Blood Disorders: No Adverse Reaction/Blood Tranf: No (N/A) Family Medical History Reviewed Nursing Family Hx Cardiovascular disease 19 FATHER Completed stroke 19 FATHER Diabetes mellitus 19 FATHER Hypercholesterolemia 19 FATHER 19 MOTHER Hypertension 19 FATHER 19 MOTHER Neoplasm 19 MOTHER Psychosocial problem 19 FATHER 19 MOTHER No Pertinent Family Hx, Cancer, Diabetes, Hypertension Physical Exam Vital Signs Vital Signs - First Documented 07/07/18 06:10 Temp 96.4 Pulse 68 Resp 20 B/P (MAP) 0/92 (62) Pulse Ox 96 O2 Delivery Room Air Capillary Refill : Height, Weight, BMI Height: 5'2.00" Weight: 240lbs. 0oz. 108.062130ez; 45.8 BMI Method:Stated General Appearance: WD/WN, Mild Distress, Obese HEENT: PERRL/EOMI, Pharynx Normal Neck: Full Range of Motion, Non Tender, Supple Respiratory: Lungs Clear, Normal Breath Sounds Cardiovascular: Regular Rate, Rhythm, No Murmur Gastrointestinal: Non Tender, Soft Extremity: No Calf Tenderness, Other (tender in the area of the right shoulder with decreased range of motion due to pain) Neurologic/Psychiatric: Alert, Oriented x3; No Motor Weakness Skin: Normal Color, Warm/Dry Progress/Results/Core Measures Results/Orders Lab Results Laboratory Tests Test 07/07/18 06:25 Range/Units White Blood Count 9.7 4.3-11.0 10^3/uL Red Blood Count 4.42 4.35-5.85 10^6/uL Hemoglobin 11.8 11.5-16.0 G/DL Hematocrit 37 35-52 % Mean Corpuscular Volume 84 80-99 FL Mean Corpuscular Hemoglobin 27 25-34 PG Mean Corpuscular Hemoglobin Concent 32 32-36 G/DL Red Cell Distribution Width 14.4 10.0-14.5 % Platelet Count 300 130-400 10^3/uL Mean Platelet Volume 9.2 7.4-10.4 FL Neutrophils (%) (Auto) 66 42-75 % Lymphocytes (%) (Auto) 26 12-44 % Monocytes (%) (Auto) 5 0-12 % Eosinophils (%) (Auto) 2 0-10 % Basophils (%) (Auto) 0 0-10 % Neutrophils # (Auto) 6.4 1.8-7.8 X 10^3 Lymphocytes # (Auto) 2.6 1.0-4.0 X 10^3 Monocytes # (Auto) 0.5 0.0-1.0 X 10^3 Eosinophils # (Auto) 0.2 0.0-0.3 10^3/uL Basophils # (Auto) 0.0 0.0-0.1 10^3/uL Prothrombin Time 12.0 L 12.2-14.7 SEC INR Comment 0.9 0.8-1.4 Activated Partial Thromboplast Time 31 24-35 SEC Sodium Level 137 135-145 MMOL/L Potassium Level 3.8 3.6-5.0 MMOL/L Chloride Level 105 98-107 MMOL/L Carbon Dioxide Level 23 21-32 MMOL/L Anion Gap 9 5-14 MMOL/L Blood Urea Nitrogen 10 7-18 MG/DL Creatinine 0.81 0.60-1.30 MG/DL Estimat Glomerular Filtration Rate > 60 BUN/Creatinine Ratio 12 Glucose Level 110 H 70-105 MG/DL Calcium Level 8.7 8.5-10.1 MG/DL Corrected Calcium 9.0 8.5-10.1 MG/DL Magnesium Level 2.1 1.8-2.4 MG/DL Total Bilirubin 0.2 0.1-1.0 MG/DL Aspartate Amino Transf (AST/SGOT) 25 5-34 U/L Alanine Aminotransferase (ALT/SGPT) 16 0-55 U/L Alkaline Phosphatase 59 40-136 U/L Myoglobin 34.2 10.0-92.0 NG/ML Troponin I < 0.028 <0.028 NG/ML Total Protein 7.1 6.4-8.2 GM/DL Albumin 3.6 3.2-4.5 GM/DL My Orders Orders - YUKI MARCH MD Cbc With Automated Diff (07/07/18 06:32) Magnesium (07/07/18 06:32) Chest 1 View, Ap/Pa Only (07/07/18 06:32) Ekg Tracing (07/07/18 06:32) Cardiac Profile 1 (07/07/18 06:32) Comprehensive Metabolic Panel (07/07/18 06:32) Myoglobin Serum (07/07/18 06:32) Protime With Inr (07/07/18 06:32) Partial Thromboplastin Time (07/07/18 06:32) O2 (07/07/18 06:32) Monitor-Rhythm Ecg Trace Only (07/07/18 06:32) Lipid Panel (07/08/18 06:00) Aspirin Chewable Tablet (Baby Aspirin Ch (07/07/18 06:45) Saline Lock/Iv-Start (07/07/18 06:32) Aspirin Chewable Tablet (Baby Aspirin Ch (07/07/18 06:31) Morphine Injection (Morphine Injection (07/07/18 06:55) Morphine Injection (Morphine Injection (07/07/18 09:28) Dexamethasone Injection (Decadron Inject (07/07/18 09:30) Medications Given in ED Current Medications Medications Dose Ordered Sig/Neal Route Start Time Stop Time Status Last Admin Dose Admin Aspirin 81 mg STK-MED ONCE .ROUTE 07/07/18 06:31 07/07/18 06:35 DC 07/07/18 06:34 81 MG Vital Signs/I&O 07/07/18 07/07/18 06:10 06:10 Temp 96.4 Pulse 68 Resp 20 B/P (MAP) 0/92 (62) Pulse Ox 96 O2 Delivery Room Air Room Air Progress Progress Note : Progress Note Seen and evaluated. IV, labs, EKG and chest x-ray ordered. ASA 324 mg by mouth ordered. Morphine 5 mg IV for the pain. Monitor patient. Reviewed previous imaging of the neck and she does have MRI 2014 that does not show any significant stenosis or abnormalities. 1001: Pain was better but now worsening. Morphine 5 mg IV and Decadron 10 mg IV. No acute findings on workup. This appears to be related to joint pain and radiculopathy. We will continue outpatient treatment with steroids. She'll follow-up with her DrBowen for further evaluation and orthopedic referral. Discharged home with return precautions. Patient verbalize understanding instructions and agreement with plan. Initial ECG Impression Date: Jul 07, 2018 Initial ECG Impression Time: 06:26 Initial ECG Rate: 81 Initial ECG Rhythm: Normal Sinus Initial ECG Intervals: Normal Initial ECG Comparisson: Unchanged Comment Sinus rhythm with normal axis. No evidence of ST elevation MD. Unchanged from previous of 2016. Interpreted by me. Diagnostic Imaging Diagonstic Imaging: Xray Plain Films/CT/US/NM/MRI: chest Comments [facility] [place], [place] NAME: JAYLYN DELGADO [facility] REC#: [id number] PT STATUS: REG ER : 1985 PHYSICIAN: YUKI MARCH MD ADMIT DATE: 07/07/18/ER Draft Date of Exam:07/07/18 CHEST 1 VIEW, AP/PA ONLY INDICATION: Chest pain. Portable upright AP view of the chest is obtained with comparison made to study of 04/29/2018. FINDINGS: Heart size and pulmonary vascularity are within normal limits, and the lungs are clear, bilaterally. IMPRESSION: Unremarkable chest. Dictated on workstation # [id number] Dict: 07/07/18 0703 Trans: 07/07/18 0704 KB [id number] Interpreted by: ISABELLA AUSTIN MD Electronically signed by: Departure Impression Primary Impression: Right shoulder pain Qualified Codes: M25.511 - Pain in right shoulder Additional Impression: Radiculopathy of arm Disposition: 01 HOME, SELF-CARE Condition: Improved Departure-Patient Inst. Decision time for Depature: 10:04 Referrals: CARMEN GIBBS MD (PCP/Family) Primary Care Physician Patient Instructions: Shoulder Pain (DC) Add. Discharge Instructions: Continue home medications as previously prescribed. Follow-up with her doctor this week for recheck. Return for worse pain, fever, vomiting, weakness, breathing problems or other concerns as needed. Scripts Prednisone (Prednisone) 20 Mg Tab 40 MG PO DAILY, #10 TAB 0 Refills Prov: YUKI MARCH MD 07/07/18 Copy Copies To 1: CARMEN GIBBS MD, TIMOTHY D MD Jul 07, 2018 07:06
[2018-07-07] MEDS ORDERED: DEXAMETHASONE 10 MG/ML (DECADRON) 1 ML VIAL IV ONE (09:30)
[2018-07-07] MEDS ORDERED: PRD20T PO (10:06)
[2018-07-07 10:27] VITALS: BP 112/69
== END 2018-07-07 10:27 | disposition home or self-care (01) ==
LOC: EDUNIT# 06:09 → ER 06:12
DX: M25.511 Pain in right shoulder (principal); M54.10 Radiculopathy, site unspecified; J45.909 Unspecified asthma, uncomplicated; G43.909 Migraine, unspecified, not intractable, without status migrainosus; G25.81 Restless legs syndrome; E66.9 Obesity, unspecified; F41.9 Anxiety disorder, unspecified; F32.9 Major depressive disorder, single episode, unspecified; F17.210 Nicotine dependence, cigarettes, uncomplicated; Z90.89 Acquired absence of other organs; Z88.8 Allergy status to other drugs, medicaments and biological substances; Z82.49 Family history of ischemic heart disease and other diseases of the circulatory system; Z68.42 Body mass index [BMI] 45.0-49.9, adult; Z86.19 Personal history of other infectious and parasitic diseases; Z87.440 Personal history of urinary (tract) infections; Z87.19 Personal history of other diseases of the digestive system; Z86.010 Personal history of colon polyps; Z85.528 Personal history of other malignant neoplasm of kidney; Z90.49 Acquired absence of other specified parts of digestive tract; Z90.710 Acquired absence of both cervix and uterus; Z90.5 Acquired absence of kidney; Z88.0 Allergy status to penicillin; Z79.51 Long term (current) use of inhaled steroids; Z79.52 Long term (current) use of systemic steroids
CPT/HCPCS: 36415; 71045; 80053; 83735; 83874; 84484; 85025; 85610; 85730; 93005; 93041

== ENCOUNTER 2018-07-17 00:55 | Emergency (ER) | payer MEDICARE, MEDICAID ==
[~2018-07-17] VITALS: Ht 157.5 cm; Wt 120.2 kg
--- OUTSIDE RECORDS SUMMARY | 2018-07-17 01:04 | XMS REPORT | Encounter Summary ---
Author Author [facility] Organization [facility] Address Unknown Phone Unavailable Care Team Providers Care Certified Ophthalmic Surgical Assistant Name Role Phone Michael Sutton MD Unavailable Unavailable Mary Whittington MD PCP Jessica Valera Unavailable Maggie Puente Unavailable Unavailable Mary Telles APRN Unavailable Bam Ritter MD Unavailable Radha Bo LPN Unavailable Unavailable Jose Sanchez MD Unavailable Encounter Details Care Team Description Date Type Department Randy Nunez MD [address] [facility] [address] [place] [address] Chronic pancreatitis, unspecified pancreatitis type (HCC) ( Primary Dx); Nausea; Generalized abdominal pain 06/27/2018 Prep for Case [facility] Level [address] [place] [address] Social History Date Tobacco Use Types Packs/Day [...] as of this encounter Plan of Treatment Care Team Description Date Type Specialty Hal Sparks MD [address] [facility] [address] [place] [address] Chronic pancreatitis, unspecified pancreatitis type (HCC) 08/22/2018 Hospital Encounter Hal Sparks MD [address] [facility] [address] [place] [address] ESOPHAGOGASTRODUODENOSCOPY WITH BIOPSY - FLEXIBLE 08/22/2018 Surgery as of this encounter Visit Diagnoses Diagnosis Chronic pancreatitis, unspecified pancreatitis type (HCC) - Primary Nausea Nausea alone Generalized abdominal pain Abdominal pain, generalized in this encounter
--- OUTSIDE RECORDS SUMMARY | 2018-07-17 01:04 | XMS REPORT | Encounter Summary ---
Author Author [facility] Organization [facility] Address Unknown Phone Unavailable Care Team Providers Care Flooring Machine Feeder Name Role Phone Michael Sutton MD Unavailable Unavailable Mary Whittington MD PCP Jessica Valera Unavailable Maggie Puente Unavailable Unavailable Mary Telles APRN Unavailable Bam Ritter MD Unavailable Radha Bo LPN Unavailable Unavailable Jose Sanchez MD Unavailable Encounter Details Care Team Description Date Type Department Abel Poe MD [address] [place] [address] 05/19/2018 [facility] Encounter [facility] in [place] [address] [place], [place] [id number] Social History Date Tobacco Use Types Packs/Day [...] hours. diphenhydrAMINE (BENADRYL Take 50 mg by 0 [...] three times a day as needed. 12/11/2017 jkaprq-zwrlegls-rcrwxig Take 3 300 tablet 5 (VIOKACE) 20,880-78,300- [...] by 0 tablet mouth at bedtime daily. 02/20/2018 07/15/2018 cyanocobalamin (VITAMIN INJECT 1 ML. 1 mL 3 B-12, RUBRAMIN) 1,000 INTRAMUSCULAR mcg/mL LY EVERY 30 injectionIndications: DAYS Medication monitoring encounter as of this encounter Plan of Treatment Care Team Description Date Type Specialty Hal Sparks MD [address] [facility] [address] [place] [address] [phone] Chronic pancreatitis, unspecified pancreatitis type (HCC) 08/22/2018 Hospital Encounter Hal Sparks MD [address] [facility] [address] [place] [address] [phone] ESOPHAGOGASTRODUODENOSCOPY WITH BIOPSY - FLEXIBLE 08/22/2018 Surgery as of this encounter Visit Diagnoses Not on filein this encounter
--- OUTSIDE RECORDS SUMMARY | 2018-07-17 01:04 | XMS REPORT | Encounter Summary ---
Author Author [facility] Organization [facility] Address Unknown Phone Unavailable Care Team Providers Care Shove Up Name Role Phone Michael Sutton MD Unavailable Unavailable Mary Whittington MD PCP Jessica Valera Unavailable Maggie Puente Unavailable Unavailable Mary Telles APRN Unavailable Bam Ritter MD Unavailable Radha Bo LPN Unavailable Unavailable Jose Sanchez MD Unavailable Encounter Details Care Team Description Date Type Department Abel Poe MD [address] [place] [address] Left renal mass (Primary Dx) 04/29/2018 Orders Only [facility] [address] [address] Social History Date Tobacco Use Types Packs/Day [...] Date Type Specialty Hal Sparks MD [address] [facility] [address] [place] [address] [phone] Chronic pancreatitis, unspecified pancreatitis type (HCC) 08/22/2018 Hospital Encounter Hal Sparks MD [address] [place] [address] [phone] ESOPHAGOGASTRODUODENOSCOPY WITH BIOPSY - FLEXIBLE 08/22/2018 Surgery as of this encounter Results * BASIC METABOLIC PANEL (05/19/2018 11:14 AM CURRICULUM DEVELOPMENT MANAGER) Sodium 136 (L) 137 - 147 MMOL/L [...] Number [facility] [address] [place] [address] in this encounter Visit Diagnoses Diagnosis Left renal mass - Primary Unspecified disorder of kidney and ureter in this encounter
--- OUTSIDE RECORDS SUMMARY | 2018-07-17 01:04 | XMS REPORT | Encounter Summary ---
Author Author [facility] Organization [facility] Address Unknown Phone Unavailable Care Team Providers Care Education Paraprofessional Name Role Phone Michael Sutton MD Unavailable Unavailable Mary Whittington MD PCP Jessica Valera Unavailable Maggie Puente Unavailable Unavailable Mary Telles APRN Unavailable Bam Ritter MD Unavailable Radha Bo LEASE BUYER Unavailable Unavailable Jose Sanchez MD Unavailable Reason for Referral * Radiology Services (Routine) Referred By Contact Referred To Contact Status Reason Specialty Diagnoses / Procedures Abel Poe MD [facility] [employer] [address] [address] New Request Radiology Diagnoses Malignant neoplasm of kidney, unspecified laterality (HCC) P rocedures CT ABDOMEN W CONTRAST * Radiology Services (Routine) Referred By Contact Referred To Contact Status Reason Specialty Diagnoses / Procedures Abel Poe MD [address] [employer] [facility] [address] [place] [address] New Request Radiology Diagnoses Malignant neoplasm of kidney, unspecified laterality (HCC) P rocedures CT CHEST W CONTRAST Reason for Visit * Reason Comments Heme/Onc Care Encounter Details Care Team Description Date Type Department Abel Poe MD [address] [facility] [address] [place] [address] Malignant neoplasm of kidney, unspecified laterality (HCC) ( Primary Dx) 05/19/2018 Office Visit [facility] [address] [place] [address] Social History Date Tobacco Use Types Packs/Day [...] Taken Vital Sign Reading 05/19/2018 1:06 PM TWITCHELL OPERATOR Blood Pressure 135/79 05/19/2018 1:06 PM TWITCHELL OPERATOR Pulse 81 05/19/2018 1:06 PM TWITCHELL OPERATOR Temperature 36.6 C (97.9 F) 05/19/2018 1:06 PM TWITCHELL OPERATOR Respiratory Rate 18 05/19/2018 1:06 PM TWITCHELL OPERATOR Oxygen Saturation 99% - Inhaled Oxygen - Concentration 05/19/2018 1:06 PM TWITCHELL OPERATOR Weight 121.6 kg (268 lb) 05/19/2018 1:06 PM TWITCHELL OPERATOR Height 157.7 cm (5' 2.09") 05/19/2018 1:06 PM TWITCHELL OPERATOR Body Mass Index 48.88 in this encounter [...] Abel Poe MD - 05/19/2018 1:30 PM TWITCHELL OPERATOR Name: Janeth Rajput : 1985 AGE: 33 [...] to three times a day as needed. cmurko-uhidkumr-wsafigx (VIOKACE) 20,880-78,300- 78,300 unit tab Take 3 [...] GI and her surgeon close to home. CHELL OPERATOR in this encounter Plan of Treatment Care Team Description Date Type Specialty Hal Sparks MD [address] [facility] [address] [place] [address] [phone] Chronic pancreatitis, unspecified pancreatitis type (HCC) 08/22/2018 Hospital Encounter Hal Sparks MD [address] [facility] [address] [place] [address] [phone] ESOPHAGOGASTRODUODENOSCOPY WITH BIOPSY - FLEXIBLE 08/22/2018 Surgery Order Schedule Name Priority Associated Diagnoses Expected: [...] Diagnosis POC CREATININE, RAD 05/19/2018 11:18 AM TWITCHELL OPERATOR in this encounter Results * POC CREATININE, RAD (05/19/2018 11:18 AM TWITCHELL OPERATOR) Creatinine, POC 0.8 0.4 - 1.00 MG/DL [facility] Performing Organization Address City/State/Zipcode Phone Number MAIN LAB [address] [place] [address] in this encounter Visit Diagnoses Diagnosis Malignant neoplasm of kidney, unspecified laterality (HCC) - Primary in this encounter
--- OUTSIDE RECORDS SUMMARY | 2018-07-17 01:04 | XMS REPORT | Encounter Summary ---
Author Author [facility] Organization [facility] Address Unknown Phone Unavailable Care Team Providers Care Stave Bolt Equalizer Name Role Phone Michael Sutton MD Unavailable Unavailable Mary Whittington MD PCP Jessica Valera Unavailable Maggie Puente Unavailable Unavailable Mary Telles APRN Unavailable Bam Ritter MD Unavailable Radha Bo DEBURR OPERATOR Unavailable Unavailable Jose Sanchez MD Unavailable Reason for Referral * Radiology Services (Routine) Referred By Contact Referred To Contact Status Reason Specialty Diagnoses / Procedures Abel Poe MD [address] [place] [address]16 New Request Radiology Diagnoses Left renal mass P rocedures CT ABDOMEN W CONTRAST CT ABDOMEN WO/W CONTRAST * Radiology Services (Routine) Referred By Contact Referred To Contact Status Reason Specialty Diagnoses / Procedures Abel Poe MD [address] [place] [address] 29392 New Request Radiology Diagnoses Left renal mass P rocedures CT ABDOMEN W CONTRAST CT ABDOMEN WO/W CONTRAST * Radiology Services (Routine) Referred By Contact Referred To Contact Status Reason Specialty Diagnoses / Procedures Abel Poe MD [address] [place] [address] [place] [address] No Auth Needed Radiology Diagnoses Left renal mass P rocedures CT CHEST W CONTRAST CT CHEST WO/W CONTRAST CHG CT ABDOMEN W/CONTRAST MATERIAL * Radiology Services (Routine) Referred By Contact Referred To Contact Status Reason Specialty Diagnoses / Procedures Abel Poe MD [address] [facility] [address] [place] [address] [place] [address] No Auth Needed Radiology Diagnoses Left renal mass P rocedures CT CHEST W CONTRAST CT CHEST WO/W CONTRAST CHG CT ABDOMEN W/CONTRAST MATERIAL Reason for Visit * Radiology Services (Routine) Referred By Contact Referred To Contact Status Reason Specialty Diagnoses / Procedures Abel Poe MD [address] [facility] [place] [address] No Auth Needed Radiology Diagnoses Left renal mass P rocedures CT CHEST W CONTRAST CT CHEST WO/W CONTRAST CHG CT ABDOMEN W/CONTRAST MATERIAL Encounter Details Care Team Description [place] [address] [place] [address] [phone] 05/19/2018 Hospital [facility] Encounter [facility] [address] [place], [place] [id number] Social History Date Tobacco Use Types Packs/Day [...] three times a day as needed. 12/11/2017 tylznq-czrkbgov-gindbby Take 3 300 tablet 5 (VIOKACE) 20,880-78,300- [...] Medication monitoring encounter as of this encounter Progress Notes * Abel Poe MD - 05/19/2018 3:41 PM PIE CUTTER Gave results of the CT scan. EL CUTTER in this encounter Plan of Treatment Care Team Description Date Type Specialty Hal Sparks MD [address] [place] [address] [phone] Chronic pancreatitis, unspecified pancreatitis type (HCC) 08/22/2018 Hospital Encounter Hal Sparks MD [address] [facility] [facility] [address] [place] [address] [phone] ESOPHAGOGASTRODUODENOSCOPY WITH BIOPSY - FLEXIBLE 08/22/2018 Surgery as of this encounter Procedures Comments Procedure Name Priority Date/Time Associated Diagnosis CT ABDOMEN W CONTRAST Routine 05/19/2018 Left renal mass 11:[address] CHEST W CONTRAST Routine 05/19/2018 Left renal mass 11:52 AM PIE CUTTER BASIC METABOLIC PANEL Routine 05/19/2018 Left renal mass 11:14 AM PIE CUTTER in this encounter Results * CT ABDOMEN W CONTRAST (05/19/2018 11:52 AM PIE CUTTER) Impressions Performed At CHEST: [facility] RESULTS [...] Interface, Radiant Results - 05/19/2018 1:[address] CHEST AND ABDOMEN Clinical Indication: Female, [...] CT CHEST W CONTRAST (05/19/2018 11:52 AM PIE CUTTER) Impressions Performed At CHEST: [facility] RAD RESULTS [...] Interface, Radiant Results - 05/19/2018 1:[address] CHEST AND ABDOMEN Clinical Indication: Female, [...] City/State/Zipcode Phone Number [facility] RESULTS * BASIC METABOLIC PANEL (05/19/2018 11:14 AM PIE CUTTER) Sodium 136 (L) 137 - 147 MMOL/L [...] Address City/State/Zipcode Phone Number [facility] [place] [facility] [address] [place] [address] in this encounter Visit Diagnoses Diagnosis Left renal mass Unspecified disorder of kidney and ureter in this encounter Administered Medications Action Date Dose Rate Site Medication Order MAR Action 05/19/2018 11:46 AM PIE CUTTER 100 mL iohexol (OMNIPAQUE-350) 350 mg/mL Given injection 100 mL 100 mL, Intravenous, ONCE, 1 dose, Sat05/19/18 at 1100, NOTE: This is a HIGH ALERT Medication., 05/19/2018 11:47 AM PIE CUTTER 50 mL sodium chloride PF 0.9% injection 50 mL Given 50 mL, Intravenous, ONCE, 1 dose, Sat05/19/18 at 1100, Intra-procedure (IR) in this encounter
--- OUTSIDE RECORDS SUMMARY | 2018-07-17 01:04 | XMS REPORT | Clinical Summary ---
Author Author [facility] Organization [facility] Address Unknown Phone Unavailable Care Team Providers Care Office Professional Name Role Phone Michael Sutton MD [...] in the Health Information Management department at [phone] for further assistance in locating additional records.[facility] Allergies Comments Active Allergy Reactions Severity [...] Place vomiting on tongue to disolve. Active smmyxs-djfnrgjp-unrpxya Take 3 300 tablet 5 (VIOKACE) 20,880-78,300- tablets by 8 78,300 unit tab mouth three times daily with meals. Take 2 with snacks. Active hydrocortisone 2.5% Apply 30 g 0 (PROCTO-MED HC) 2.5 % externally 8 rectal cream and internally to area(s) twice to three times a day as needed. Active prochlorperazine maleate Take one-half 30 tablet 1 (COMPAZINE) 10 mg tablet tablet by 8 mouth every 6 hours as needed for Nausea or Vomiting. Active omeprazole DR(+) Take one 30 capsule 5 (PRILOSEC) 40 mg capsule capsule by 8 mouth daily before breakfast. Active cyanocobalamin (VITAMIN INJECT 1 ML 1 mL 11 B-12, RUBRAMIN) 1,000 INTRAMUSCULAR 9 mcg/mL LY EVERY 30 injectionIndications: DAYS. Medication monitoring encounter 07/15/2018 Discontinued cyanocobalamin (VITAMIN INJECT 1 ML. 1 mL 3 B-12, RUBRAMIN) 1,000 INTRAMUSCULAR 8 mcg/mL LY EVERY 30 injectionIndications: DAYS Medication monitoring encounter Active Problems Problem Noted Date Other chronic pancreatitis 01/14/2018 Overview: Added automatically from request for surgery [id number] Intractable vomiting with nausea 01/14/2018 Overview: Added automatically from request for surgery [id number] Left renal mass 04/10/2017 Renal mass 03/21/2017 Overview: Added automatically from request for surgery [id number] 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 06/24/2013 Overview: S/P HOLLAND, BSO / Depression 06/24/2013 S/P cholecystectomy 06/24/2013 Overview: 2007 S/P appendectomy 06/24/2013 Overview: November 2012 Pancreatitis 10/23/2011 Encounters Care Team Description Date Type Specialty Randy Nunez MD Medication monitoring encounter 07/15/2018 Refill Gastroenterology Randy Nunez MD Chronic pancreatitis, unspecified pancreatitis type (HCC) (Primary Dx); Nausea; Generalized abdominal pain 06/27/2018 Prep for Case Gastroenterology Abel Poe MD Malignant neoplasm of kidney, unspecified laterality (HCC) ( Primary Dx) 05/19/2018 Office Visit Oncology Abel Poe MD 05/19/2018 Hospital Radiology Encounter Abel Poe MD 05/19/2018 Hospital Radiology Encounter Abel Poe MD Left renal mass (Primary Dx) 04/29/2018 Orders Only Oncology from Last 3 Months Family History Medical [...] Taken Vital Sign Reading 05/19/2018 1:06 PM ATG ARCHITECT Blood Pressure 135/79 05/19/2018 1:06 PM ATG ARCHITECT Pulse 81 05/19/2018 1:06 PM ATG ARCHITECT Temperature 36.6 C (97.9 F) 05/19/2018 1:06 PM ATG ARCHITECT Respiratory Rate 18 05/19/2018 1:06 PM ATG ARCHITECT Oxygen Saturation 99% - Inhaled Oxygen - Concentration 05/19/2018 1:06 PM ATG ARCHITECT Weight 121.6 kg (268 lb) 05/19/2018 1:06 PM ATG ARCHITECT Height 157.7 cm (5' 2.09") 05/19/2018 1:06 PM ATG ARCHITECT Body Mass Index 48.88 Plan of Treatment Care Team Description Date Type Specialty Hal Sparks MD [address] [facility] [address] [place] [address] [phone] Chronic pancreatitis, unspecified pancreatitis type (HCC) 08/22/2018 Hospital Encounter Hal Sparks MD [address] [place] [address] [phone] ESOPHAGOGASTRODUODENOSCOPY WITH BIOPSY - FLEXIBLE 08/22/2018 Surgery Health Maintenance Due Date Last Done Comments PHYSICAL (COMPREHENSIVE) 1991 EXAM HIV SCREENING 1999 DTAP/TDAP VACCINES (1 - 2002 Tdap) CERVICAL CANCER SCREENING 2014 INFLUENZA VACCINE Completed 06/03/2018 Procedures Comments Procedure Name Priority Date/Time Associated Diagnosis CT ABDOMEN W CONTRAST Routine 05/19/2018 Left renal mass 11:[address] CHEST W CONTRAST Routine 05/19/2018 Left renal mass 11:52 AM ATG ARCHITECT POC CREATININE, RAD 05/19/2018 11:18 AM ATG ARCHITECT BASIC METABOLIC PANEL Routine 05/19/2018 Left renal mass 11:14 AM ATG ARCHITECT from Last 3 Months Results * CT ABDOMEN W CONTRAST (05/19/2018 11:52 AM ATG ARCHITECT) Impressions Performed At CHEST: [facility] RAD RESULTS [...] Interface, Radiant Results - 05/19/2018 1:[address] CHEST AND ABDOMEN Clinical Indication: Female, [...] on 05/19/2018 12:43 PM. Performing Organization [facility] * CT CHEST W CONTRAST (05/19/2018 11:52 AM ATG ARCHITECT) Impressions Performed At CHEST: [facility] RESULTS [...] Interface, Radiant Results - 05/19/2018 1:[address] CHEST AND ABDOMEN Clinical Indication: Female, [...] on 05/19/2018 12:43 PM. Performing Organization Address City/[facility] Phone Number [facility] RESULTS * POC CREATININE, RAD (05/19/2018 11:18 AM ATG ARCHITECT) Creatinine, POC 0.8 0.4 - 1.00 MG/DL MAIN LAB Performing Organization Address City/[facility] Phone Number [facility] [address] [place] [address] * BASIC METABOLIC PANEL (05/19/2018 11:14 AM ATG ARCHITECT) Sodium 136 (L) 137 - 147 MMOL/L [...] Blood Performing Organization Address City/State/Zipcode Phone Number [facility] [address] [place] [address] from Last 3 Months Insurance Payer Benefit Subscriber ID Type Phone Address Plan / Group MEDICARE MEDICARE xxxxxxxxxxx Medicare PART A AND B Advance Directives Patient has advance care planning documents, and code status on file. For more information, please contact: [facility] [address] [place] [address] Date Inactivated Comments Code Status Date Activated 04/11/2017 4:57 PM Full Code 04/10/2017 5:31 PM Provider has discussed Code Status No, discussion not w/Patient or Family? necessary based on Dx
--- OUTSIDE RECORDS SUMMARY | 2018-07-17 01:04 | XMS REPORT | Encounter Summary ---
Author Author [facility] Organization [facility] Address Unknown Phone Unavailable Care Team Providers Care Coin Machine Mechanic Name Role Phone Michael Sutton MD Unavailable Unavailable Mary Whittington MD PCP Jessica Valera Unavailable Maggie Puente Unavailable Unavailable Mary Telles APRN Unavailable Bam Ritter MD Unavailable Radha Bo LPN Unavailable Unavailable Jose Sanchez MD Unavailable Reason for Visit * Reason Comments Medication Refill Encounter Details Care Team Description Date Type Department Randy Nunez MD [address] [place] [address] Medication monitoring encounter 07/15/2018 Refill [facility] [address] [place] [address] Social History Date Tobacco Use [...] Date Type Specialty Hal Sparks MD [address] [facility] [address] [place] [address] Chronic pancreatitis, unspecified pancreatitis type (HCC) 08/22/2018 Hospital Encounter Hal Sparks MD [address] [facility] [address] [place] [address] ESOPHAGOGASTRODUODENOSCOPY WITH BIOPSY - FLEXIBLE 08/22/2018 Surgery as of this encounter Visit Diagnoses Diagnosis Medication monitoring encounter Encounter for therapeutic drug monitoring in this encounter
--- NOTE | 2018-07-17 01:59 | ED Upper Extremity ---
General Chief Complaint: Upper Extremity Stated Complaint: RT SHOULDER PAIN Nursing Triage Note: PT AMB TO ROOM #10 CLENCHING RT SHOULDER. A&OX4. C/O RT SHOULDER PAIN FOR APPROX X3 WKS. PT REPORTS PAIN STARTED AFTER A CHIROPRACTOR VISIT. PT PRESCRIBED HYDROCODONE AND A MUSCLE RELAXER FOR PAIN. NOTED NOTED TO BE TEARFUL AND MOANING IN PAIN. Nursing Sepsis Screen: No Definite Risk Source: patient Exam Limitations: no limitations History of Present Illness Date Seen by Provider: Jul 17, 2018 Time Seen by Provider: 01:40 Initial Comments Patient presents to ER by private conveyance with chief complaint of the last 3 months having some right back and shoulder pain that was caused after an adjustment at the chiropractor for some chronic back pain. She is now complaining that after hydrocodone, Flexeril, Tylenol and icy hot her pain is a 9 out of 10 and she cannot get any rest tonight. She has plans to do physical therapy through primary care as well as referral to neurology in August for her tingling in her arm. She is tearful and states she cannot get any rest because of the pain. She's having no weakness nor loss of muscle strength. Allergies and Home Medications Allergies Coded Allergies: fentanyl (Verified Allergy, Unknown, 02/13/18) meperidine (Verified Allergy, Unknown, 08/20/17) penicillin G (Verified Allergy, Unknown, 08/20/17) vancomycin (Unverified Adverse Reaction, Intermediate, severe itching, ) Home Medications Cyanocobalamin 1,000 Mcg/Ml Inj, 1,000 MCG IJ MONTHLY, (Reported) Cyclobenzaprine HCl 10 Mg Tablet, 10 MG PO Q8H Prescribed by: DEMETRIO KAY on 07/05/18 1232 Estradiol 2 Mg Tablet, 2 MG PO HS, (Reported) Fluoxetine HCl 40 Mg Capsule, 40 MG PO HS, (Reported) Hydrocodone/Acetaminophen 1 Each Tablet, 1 TAB PO Q6H Prescribed by: LINDSEY MARROQUIN on 02/13/18 1335 Hydrocortisone 30 Gm Cream.appl, TOP DAILY PRN for INFLAMMATION, (Reported) Hyoscyamine Sulfate 0.125 Mg Tab.subl, 0.125 MG SL Q6H PRN for CRAMPS Prescribed by: GEORGES FINN on 05/25/18 1131 Lipase/Protease/Amylase 1 Each Tablet, PO UD, (Reported) TAKE 3 TABLETS WITH MEALS AND 2 TABLETS WITH SNACKS (HAS NOT STARTED TAKING DUE TO NOT BEING ABLE TO KEEP ANYTHING DOWN BUT DID COCOA BEAN ROASTER HELPER THE SCRIPT) Ondansetron 8 Mg Tab.rapdis, 8 MG PO BID, (Reported) Ondansetron HCl 8 Mg Tablet, 8 MG PO Q6H Prescribed by: YAN CHAPARRO on 06/01/18 0552 Orphenadrine Citrate 100 Mg Tablet.er, 100 MG PO BID PRN for SPASMS Prescribed by: KIARA CALVERT on 06/17/18 1421 Prednisone 20 Mg Tab, 20 MG PO BID Prescribed by: KIARA CALVERT on 06/17/18 1421 Prednisone 20 Mg Tab, 40 MG PO DAILY Prescribed by: YUKI MARCH on 07/07/18 1006 Promethazine HCl 25 Mg Tablet, 25 MG PO Q6H PRN for NAUSEA/VOMITING-2ND LINE, ( Reported) Promethazine HCl 25 Mg Tablet, 25 MG PO Q6H PRN for NAUSEA/VOMITING Prescribed by: GEORGES FINN on 05/25/18 1131 Promethazine HCl 25 Mg Tablet, 25 MG PO Q6H PRN for NAUSEA/VOMITING Prescribed by: MAKAYLA HAWKINS on 07/01/18 1151 Ropinirole HCl 4 Mg Tablet, 4 MG PO HS, (Reported) Tramadol HCl 50 Mg Tablet, 50 MG PO Q4H Prescribed by: YAN CHAPARRO on 06/01/18 0552 Patient Home Medication List Home Medication List Reviewed: Yes Review of Systems Constitutional: No chills, No diaphoresis EENTM: No ear discharge, No hearing loss Respiratory: No cough, No short of breath Cardiovascular: No chest pain, No edema Gastrointestinal: No abdominal pain, No constipation, No diarrhea Genitourinary: No discharge, No dysuria Musculoskeletal: see HPI, back pain Past Krdjvga-Octven-Gvegdx Hx Patient Social History Alcohol Use: Denies Use Recreational Drug Use: No Smoking Status: Former Smoker Type Used: Cigarettes 2nd Hand Smoke Exposure: No Recent Foreign Travel: No Contact w/Someone Who Travel: No Recent Infectious Disease Expo: No Recent Hopitalizations: No Immunizations Up To Date Tetanus Booster (TDap): Unknown PED Vaccines UTD: No Date of Pneumonia Vaccine: May 17, 2012 Date of Influenza Vaccine: Jul 03, 2012 Seasonal Allergies Seasonal Allergies: Yes (MILD) Past Medical History Surgeries: Yes Abdominal, Adenoidectomy, Appendectomy, Gallbladder, 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, Nephrectomy, Orthopedic, Tonsillectomy Respiratory: Yes Asthma Currently Using CPAP: No Currently Using BIPAP: No Cardiac: No Neurological: Yes (RESTLESS LEG SYNDROME) Headaches /Migraines 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: No (HX ENDOMETRIOSIS ) 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 Sexually Transmitted Disease: No HIV/AIDS: No Genitourinary: Yes (L KIDNEY REMOVED FOR TUMOR-MALIGNANT;) UTI-Chronic Gastrointestinal: Yes Abdominal Hernia, Liver Disease/Jaundice, Pancreatitis, Polyps Musculoskeletal: Yes (COCCYX-REPAIRED, MAY HAVE SIGNS OF ARTHRITIS) Chronic Back Pain Endocrine: Yes (CHRONIC PANCREATITIS; OBESITY) HEENT: No Loss of Vision: Denies Hearing Impairment: Denies Cancer: Yes Kidney Did You Recieve Any Treatments: Yes What Type of Treatment Did You: Surgical Intervention Psychosocial: Yes Anxiety, Depression Integumentary: No Herpes Blood Disorders: No Adverse Reaction/Blood Tranf: No (N/A) Family Medical History Cardiovascular disease 19 FATHER Completed stroke 19 FATHER Diabetes mellitus 19 FATHER Hypercholesterolemia 19 FATHER 19 MOTHER Hypertension 19 FATHER 19 MOTHER Neoplasm 19 MOTHER Psychosocial problem 19 FATHER 19 MOTHER No Pertinent Family Hx, Cancer, Diabetes, Hypertension Physical Exam Vital Signs Vital Signs - First Documented 07/17/18 01:21 Temp 97.8 Pulse 107 Resp 18 B/P (MAP) 162/124 (137) Pulse Ox 98 O2 Delivery Room Air Capillary Refill : Less Than 3 Seconds Height, Weight, BMI Height: 5'2.00" Weight: 265lbs. 0oz. 120.571904ff; 45.8 BMI Method:Stated General Appearance: WD/WN, no apparent distress HEENT: PERRL/EOMI, normal ENT inspection, TMs normal, pharynx normal Neck: non-tender, full range of motion, supple, normal inspection Cardiovascular: normal peripheral pulses, regular rate, rhythm, no edema Respiratory: chest non-tender, lungs clear, normal breath sounds, no respiratory distress, no accessory muscle use Gastrointestinal: normal bowel sounds, non tender, soft, no organomegaly Back: normal inspection, vertebral tenderness (right paraspinous muscles are tender to palpation in the thoracic spine) Shoulder: normal inspection, non-tender, no evidence of injury, normal ROM ( right) Neurologic/Psychiatric: no motor/sensory deficits, alert, normal mood/affect, oriented x 3 Skin: normal color, warm/dry Progress/Results/Core Measures Results/Orders My Orders Orders - MAKAYLA HAWKINS Saline Lock/Iv-Start (07/17/18 01:50) Ketamine Injection (Ketalar Injection) (07/17/18 02:00) Morphine Injection (Morphine Injection (07/17/18 02:00) Ondansetron Injection (Zofran Injectio (07/17/18 02:00) Ondansetron Oral Dissolve Tab (Zofran (07/17/18 02:15) Ketamine Injection (Ketalar Injection) (07/17/18 02:15) Morphine Injection (Morphine Injection (07/17/18 02:15) Medications Given in ED Current Medications Medications Dose Ordered Sig/Neal Route Start Time Stop Time Status Last Admin Dose Admin Ketamine HCl 150 mg ONCE ONCE IM 07/17/18 02:15 07/17/18 02:17 DC 07/17/18 02:34 150 MG Morphine Sulfate 4 mg ONCE ONCE SC 07/17/18 02:15 07/17/18 02:17 DC 07/17/18 02:34 4 MG Ondansetron HCl 4 mg ONCE ONCE PO 07/17/18 02:15 07/17/18 02:17 DC 07/17/18 02:28 4 MG Vital Signs/I&O 07/17/18 01:21 Temp 97.8 Pulse 107 Resp 18 B/P (MAP) 162/124 (137) Pulse Ox 98 O2 Delivery Room Air Blood Pressure Mean: 137 Progress Progress Note #1: Time: 01:56 Progress Note Patient has a fentanyl allergy and since she only has one kidney we cannot use NSAIDs. We are going to try and bring her pain down some ketamine and morphine along with some Zofran and then we'll let her go home. She is working on getting her father or brother to give her a ride home. She has a back pain workup going on including x-rays outpatient she has referenced. She has appropriate referrals. We have encouraged her to again follow-up with physical therapy. Progress Note #2: Time: 03:24 Progress Note Patient was given morphine and ketamine. She had good relief of her pain but then was also quite sleepy so we allowed her to rest for about 30 minutes. She says her pain now is gone but she still has the tingling in her right hand that was persistent from before. We are going to Let her get something to drink get her up to go to the bathroom before we send her home with her family member. Progress Note #3: Time: 04:09 Progress Note Patient's more with a now up walking around with help. Allow her to discharge home Departure Impression Primary Impression: Thoracic back pain Qualified Codes: M54.6 - Pain in thoracic spine; G89.29 - Other chronic pain Disposition: 01 HOME, SELF-CARE Condition: Improved Departure-Patient Inst. Decision time for Depature: 04:09 Referrals: CARMEN GIBBS MD (PCP/Family) Primary Care Physician Patient Instructions: Back Exercises, Upper Back Pain (DC) Add. Discharge Instructions: Get some sleep, use Tylenol and follow-up with primary care and physical therapy. All discharge instructions reviewed with patient and/or family. Voiced understanding. MAKAYLA HAWKINS Jul 17, 2018 01:59
[2018-07-17] MEDS ORDERED: ONDANSETRON 4 MG/2 ML (SDV) Z0FRAN IVP ONE (02:00)
[2018-07-17] MEDS ORDERED: KETAMINE HCL 100 MG/ML 5 ML VIAL IV ONE (02:00)
[2018-07-17] MEDS ORDERED: morphine INJ 10 MG/ML 1ML (SYR OR VIAL) IVP ONE (02:00)
[2018-07-17] MEDS ORDERED: morphine INJ 10 MG/ML 1ML (SYR OR VIAL) SC ONE (02:15)
[2018-07-17] MEDS ORDERED: KETAMINE HCL 100 MG/ML 5 ML VIAL IM ONE (02:15)
[2018-07-17] MEDS ORDERED: ONDANSETRON 4 MG (ZOFRAN) ORAL DISSOLVE TAB PO ONE (02:15)
[2018-07-17 04:15] VITALS: BP 156/102
[2018-07-17] MEDS ORDERED: HYDR-4226 PO (12:01)
== END 2018-07-17 04:15 | disposition home or self-care (01) ==
LOC: EDUNIT# 00:55 → ER 00:57
DX: M54.6 Pain in thoracic spine (principal); J45.909 Unspecified asthma, uncomplicated; G43.909 Migraine, unspecified, not intractable, without status migrainosus; G25.81 Restless legs syndrome; F41.9 Anxiety disorder, unspecified; F32.9 Major depressive disorder, single episode, unspecified; Z86.19 Personal history of other infectious and parasitic diseases; Z82.49 Family history of ischemic heart disease and other diseases of the circulatory system; Z85.528 Personal history of other malignant neoplasm of kidney; Z87.19 Personal history of other diseases of the digestive system; Z86.010 Personal history of colon polyps; Z87.440 Personal history of urinary (tract) infections; Z87.448 Personal history of other diseases of urinary system; Z88.0 Allergy status to penicillin; Z88.1 Allergy status to other antibiotic agents; Z88.8 Allergy status to other drugs, medicaments and biological substances; Z79.52 Long term (current) use of systemic steroids; Z87.891 Personal history of nicotine dependence; Z90.89 Acquired absence of other organs; Z98.890 Other specified postprocedural states; Z90.710 Acquired absence of both cervix and uterus; Z90.5 Acquired absence of kidney
CPT/HCPCS: 99284

== ENCOUNTER 2018-07-17 11:15 | Emergency (ER) | payer MEDICARE, MEDICAID ==
[~2018-07-17] VITALS: Ht 157.5 cm; Wt 117.9 kg
--- NOTE | 2018-07-17 11:24 | ED Upper Extremity ---
General Stated Complaint: CHEST PAIN;HIGH BP Source: patient Exam Limitations: no limitations History of Present Illness Date Seen by Provider: Jul 17, 2018 Time Seen by Provider: 11:22 Initial Comments To ER per private vehicle for the seventh time this month with reports today of right upper chest pain that radiates down the arm causing tingling in her fingers. She has seen her primary care provider for this and they wanted her to follow up with neurology she states that neurology cannot get her seen. Onset: other Severity: moderate Pain/Injury Location: right shoulder Method of Injury: unknown Modifying Factors: Worse With Movement Allergies and Home Medications Allergies Coded Allergies: fentanyl (Verified Allergy, Unknown, 02/13/18) meperidine (Verified Allergy, Unknown, 08/20/17) penicillin G (Verified Allergy, Unknown, 08/20/17) vancomycin (Unverified Adverse Reaction, Intermediate, severe itching, ) Home Medications Cyanocobalamin 1,000 Mcg/Ml Inj, 1,000 MCG IJ MONTHLY, (Reported) Cyclobenzaprine HCl 10 Mg Tablet, 10 MG PO Q8H Prescribed by: DEMETRIO KAY on 07/05/18 1232 Estradiol 2 Mg Tablet, 2 MG PO HS, (Reported) Fluoxetine HCl 40 Mg Capsule, 40 MG PO HS, (Reported) Hydrocodone/Acetaminophen 1 Each Tablet, 1 TAB PO Q6H Prescribed by: LINDSEY MARROQUIN on 02/13/18 1335 Hydrocortisone 30 Gm Cream.appl, TOP DAILY PRN for INFLAMMATION, (Reported) Hyoscyamine Sulfate 0.125 Mg Tab.subl, 0.125 MG SL Q6H PRN for CRAMPS Prescribed by: GEORGES FINN on 05/25/18 1131 Lipase/Protease/Amylase 1 Each Tablet, PO UD, (Reported) TAKE 3 TABLETS WITH MEALS AND 2 TABLETS WITH SNACKS (HAS NOT STARTED TAKING DUE TO NOT BEING ABLE TO KEEP ANYTHING DOWN BUT DID METAL BUFFER THE SCRIPT) Ondansetron 8 Mg Tab.rapdis, 8 MG PO BID, (Reported) Ondansetron HCl 8 Mg Tablet, 8 MG PO Q6H Prescribed by: YAN CHAPARRO on 06/01/18 0552 Orphenadrine Citrate 100 Mg Tablet.er, 100 MG PO BID PRN for SPASMS Prescribed by: KIARA CALVERT on 06/17/18 1421 Prednisone 20 Mg Tab, 20 MG PO BID Prescribed by: KIARA CALVERT on 06/17/18 1421 Prednisone 20 Mg Tab, 40 MG PO DAILY Prescribed by: YUKI MARCH on 07/07/18 1006 Promethazine HCl 25 Mg Tablet, 25 MG PO Q6H PRN for NAUSEA/VOMITING-2ND LINE, ( Reported) Promethazine HCl 25 Mg Tablet, 25 MG PO Q6H PRN for NAUSEA/VOMITING Prescribed by: GEORGES FINN on 05/25/18 1131 Promethazine HCl 25 Mg Tablet, 25 MG PO Q6H PRN for NAUSEA/VOMITING Prescribed by: MAKAYLA HAWKINS on 07/01/18 1151 Ropinirole HCl 4 Mg Tablet, 4 MG PO HS, (Reported) Tramadol HCl 50 Mg Tablet, 50 MG PO Q4H Prescribed by: YAN CHAPARRO on 06/01/18 0552 Patient Home Medication List Home Medication List Reviewed: Yes Review of Systems Constitutional: see HPI EENTM: see HPI Respiratory: no symptoms reported Cardiovascular: no symptoms reported Genitourinary: no symptoms reported Musculoskeletal: see HPI Skin: no symptoms reported Psychiatric/Neurological: No Symptoms Reported Past Fkyjofy-Ssprdp-Luzdas Hx Patient Social History Type Used: Cigarettes 2nd Hand Smoke Exposure: No Recent Hopitalizations: No Immunizations Up To Date Tetanus Booster (TDap): Unknown PED Vaccines UTD: No Date of Pneumonia Vaccine: May 17, 2012 Date of Influenza Vaccine: Jul 03, 2012 Seasonal Allergies Seasonal Allergies: Yes (MILD) Past Medical History Surgeries: Yes Abdominal, Adenoidectomy, Appendectomy, Gallbladder, 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, Nephrectomy, Orthopedic, Tonsillectomy Respiratory: Yes Asthma Currently Using CPAP: No Currently Using BIPAP: No Cardiac: No Neurological: Yes (RESTLESS LEG SYNDROME) Headaches /Migraines 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: No (HX ENDOMETRIOSIS ) 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 Sexually Transmitted Disease: No HIV/AIDS: No Genitourinary: Yes (L KIDNEY REMOVED FOR TUMOR-MALIGNANT;) UTI-Chronic Gastrointestinal: Yes Abdominal Hernia, Liver Disease/Jaundice, Pancreatitis, Polyps Musculoskeletal: Yes (COCCYX-REPAIRED, MAY HAVE SIGNS OF ARTHRITIS) Chronic Back Pain Endocrine: Yes (CHRONIC PANCREATITIS; OBESITY) HEENT: No Loss of Vision: Denies Hearing Impairment: Denies Cancer: Yes Kidney Did You Recieve Any Treatments: Yes What Type of Treatment Did You: Surgical Intervention Psychosocial: Yes Anxiety, Depression Integumentary: No Herpes Blood Disorders: No Adverse Reaction/Blood Tranf: No (N/A) Family Medical History Cardiovascular disease 19 FATHER Completed stroke 19 FATHER Diabetes mellitus 19 FATHER Hypercholesterolemia 19 FATHER 19 MOTHER Hypertension 19 FATHER 19 MOTHER Neoplasm 19 MOTHER Psychosocial problem 19 FATHER 19 MOTHER No Pertinent Family Hx, Cancer, Diabetes, Hypertension Physical Exam Vital Signs Vital Signs - First Documented 07/17/18 11:15 Temp 97.2 Pulse 108 Resp 18 B/P (MAP) 131/95 (107) Pulse Ox 99 Capillary Refill : Height, Weight, BMI Height: 5'2.00" Weight: 265lbs. 0oz. 120.142071zb; 45.8 BMI Method:Stated General Appearance: WD/WN, no apparent distress, other (tearful, sobbing, states "I just don't feel right, I didn't tearful lately, I've got a lot going on") HEENT: PERRL/EOMI, normal ENT inspection Neck: non-tender Cardiovascular: tachycardia Respiratory: no respiratory distress, no accessory muscle use Gastrointestinal: non tender, soft Shoulder: normal inspection, soft tissue tenderness (the right pectoralis muscle is tender to palpation, worse with shoulder movement) Elbow/Forearm: normal inspection, non-tender Wrist: Yes normal inspection, Yes non-tender Hand: normal inspection, non-tender Neurologic/Tendon: normal sensation, normal motor functions Neurologic/Psychiatric: alert, normal mood/affect, oriented x 3 Skin: normal color, warm/dry Progress/Results/Core Measures Results/Orders My Orders Orders - GEORGES FINN APRN Ekg Tracing (07/17/18 11:20) Alprazolam Tablet (Xanax Tablet) (07/17/18 11:30) Ketorolac Injection (Toradol Injection) (07/17/18 11:30) Medications Given in ED Current Medications Medications Dose Ordered Sig/Neal Route Start Time Stop Time Status Last Admin Dose Admin Ketorolac Tromethamine 60 mg ONCE ONCE IM 07/17/18 11:30 07/17/18 11:31 DC 07/17/18 11:34 60 MG Vital Signs/I&O 07/17/18 11:15 Temp 97.2 Pulse 108 Resp 18 B/P (MAP) 131/95 (107) Pulse Ox 99 Departure Impression Primary Impression: Anxiety Additional Impression: Right shoulder pain Qualified Codes: M25.511 - Pain in right shoulder Disposition: 01 HOME, SELF-CARE Condition: Stable Departure-Patient Inst. Decision time for Depature: 11:59 Referrals: CARMEN GIBBS MD (PCP/Family) Primary Care Physician Patient Instructions: Shoulder Pain (DC) Add. Discharge Instructions: 1. Pain medication as directed 2. Return to ER for any concerns Scripts Hydrocodone/Acetaminophen (Rough And Ready 5-325 Tablet) 1 Each Tablet 1 EACH PO Q6H PRN for PAIN-MODERATE MDD 10, #10 TAB Prov: GEORGES FINN APRN 07/17/18 GEORGES FINN APRN Jul 17, 2018 11:24
[2018-07-17] MEDS ORDERED: ALPRAZolam 0.5 MG (XANAX) TAB PO SCH (11:30)
[2018-07-17] MEDS ORDERED: KETOROLAC 60 MG/2 ML VIAL IM ONE (11:30)
--- NOTE | 2018-07-17 11:33 | NUR ---
PT STATES NO CHANGES IN MEDS
[2018-07-17] MEDS ORDERED: HYDR-4226 PO (12:01)
[2018-07-17 12:43] VITALS: BP 117/95
== END 2018-07-17 12:46 | disposition home or self-care (01) ==
LOC: ER 11:15 → EDUNIT# 11:15 → ER 12:46
DX: F41.9 Anxiety disorder, unspecified (principal); M25.511 Pain in right shoulder; J45.909 Unspecified asthma, uncomplicated; G43.909 Migraine, unspecified, not intractable, without status migrainosus; G25.81 Restless legs syndrome; E66.9 Obesity, unspecified; F32.9 Major depressive disorder, single episode, unspecified; Z68.42 Body mass index [BMI] 45.0-49.9, adult; Z86.19 Personal history of other infectious and parasitic diseases; Z85.528 Personal history of other malignant neoplasm of kidney; Z87.19 Personal history of other diseases of the digestive system; Z82.49 Family history of ischemic heart disease and other diseases of the circulatory system; Z86.010 Personal history of colon polyps; Z87.440 Personal history of urinary (tract) infections; Z79.52 Long term (current) use of systemic steroids; Z88.0 Allergy status to penicillin; Z88.1 Allergy status to other antibiotic agents; Z88.8 Allergy status to other drugs, medicaments and biological substances; Z98.890 Other specified postprocedural states; Z90.89 Acquired absence of other organs; Z90.710 Acquired absence of both cervix and uterus
CPT/HCPCS: 99284

== ENCOUNTER 2018-08-11 06:10 | Outpatient (CLI) | payer MEDICARE, MEDICAID ==
[~2018-08-11] VITALS: Ht 157.5 cm; Wt 117.9 kg
[~2018-08-11 06:10] MED LIST changes: +HYDR-4226 PO
[2018-08-11] MEDS ORDERED: SERT50TA9 PO (12:30)
[2018-08-11] MEDS ORDERED: METO-387 PO (12:30)
[2018-08-11] MEDS ORDERED: TIZA4TAB3 PO (12:30)
== END 2018-08-11 12:32 ==
LOC: PREOP 06:10
PROVIDERS: ATTEND Surgery
DX: Z01.818 Encounter for other preprocedural examination (principal)

== ENCOUNTER 2018-08-13 07:50 | Day surgery (SDC) | payer MEDICARE, MEDICAID ==
[~2018-08-13] VITALS: Ht 157.5 cm; Wt 117.9 kg
[~2018-08-13 07:50] MED LIST changes: +METO-387 PO; +SERT50TA9 PO; +TIZA4TAB3 PO
[2018-08-13] MEDS ORDERED: LACTATED RINGERS 1,000 ML IV ONE (08:06)
[2018-08-13] MEDS ORDERED: LACTATED RINGERS 1,000 ML IV STA (08:07)
[2018-08-13 08:20] VITALS: BP 134/78
--- NOTE | 2018-08-13 09:57 | Progress Note-Pre Operative ---
Pre-Operative Progress Note H&P Reviewed The H&P was reviewed, patient examined and no changes noted. Time Seen by Provider: 08:34 Date H&P Reviewed: Aug 13, 2018 Time H&P Reviewed: 08:35 Pre-Operative Diagnosis: rectal bleed LINDSEY MARROQUIN DO Aug 13, 2018 09:57
[2018-08-13] MEDS ORDERED: LIDOCAINE PF 2% 5 ML (XYLOCAINE) VIAL ONE (09:58)
[2018-08-13] MEDS ORDERED: proPOfol 200 MG/20 ML (DIPRIVAN) VIAL IV ONE (09:58)
[2018-08-13] MEDS ORDERED: MIDAZOLAM 2 MG/2 ML (VERSED) VIAL ONE (10:01)
[2018-08-13 10:25] VITALS: BP 130/67
--- NOTE | 2018-08-13 10:29 | Progress Note-Post Operative ---
Post-Operative Progess Note Surgeon (s)/Director Of Education (s) Surgeon LINDSEY MARROQUIN DO Director Of Education: none Pre-Operative Diagnosis rectal bleed Post-Operative Diagnosis same plus poor prep Procedure & Operative Findings Date of Procedure 08/13/18 Procedure Performed/Findings Flexible sigmoidoscopy Anesthesia Type IV sedation by INSTRUMENT SHOP SUPERVISOR Estimated Blood Loss Estimated blood loss (mL): none Specimens/Packing Specimens Removed none LINDSEY MARROQUIN DO Aug 13, 2018 10:29
--- NOTE | 2018-08-13 10:30 | Endoscopy Discharge Instruct ---
Endo Procedure/Findings Findings 1.: Internal Hemorrhoids Discharge Instructions - Activity: You might feel a little sleepy until tomorrow. This is due to the medicine you received to relax you. Until tomorrow, you should: NOT drive a car, operate machinery or power tools. NOT drink any alcoholic beverages. NOT make any important decisions or sign importortant papers. Do not return to work until tomorrow, unless otherwise instructed. Resume previous activities tomorrow. Diet: Start by taking liquids. If you tolerate liquids, advance to solid food. make appt for one week Notify Physician - If you experience excessive bleeding, unusual abdominal pain, fever, or chest pain, contact your doctor immediately. Follow-Up: - I have received and understand the above instructions and will call my doctor if I have any further questions. Patient Signature Date Nurse Signature Other (Relationship) LINDSEY MARROQUIN DO Aug 13, 2018 10:30
[2018-08-13 10:55] VITALS: BP 123/76
[2018-08-13 11:45] VITALS: BP 123/76
--- NOTE | 2018-08-13 11:55 | Anesthesia-General Post-Op ---
MAC Patient Condition Mental Status/LOC: Same as Preop Cardiovascular: Satisfactory Nausea/Vomiting: Absent Respiratory: Satisfactory Pain: Controlled Complications: Absent Post Op Complications Complications None Follow Up Care/Instructions Patient Instructions None needed. Anesthesiology Discharge Order Discharge Order Patient was seen after the procedure and she was doing well, no complaints, stable vital signs, no apparent adverse anesthesia problems. RIYA SANTOS DO Aug 13, 2018 11:55
--- NOTE | 2018-08-13 13:49 | OPERATIVE REPORT ---
DATE OF SERVICE: 08/13/2018 PREOPERATIVE DIAGNOSIS: Rectal bleed. POSTOPERATIVE DIAGNOSES: Rectal bleed, poor prep. PROCEDURE PERFORMED: Flexible sigmoidoscopy. SURGEON: Deondre Roman DO. FIRE CONTROL MECHANIC: None. ANESTHESIA: IV sedation by the LACE MACHINE OPERATOR. BLOOD LOSS: None. SPECIMENS: None. FLUIDS: Per Anesthesia. POSTOPERATIVE CONDITION: Stable. INDICATION FOR PROCEDURE: The patient is a 33-year-old female who has been having some rectal bleeding and needed a workup. FINDINGS: The patient unfortunately had very poor prep, had formed fecal material, could not get through the colon, so I had to just stop and see as a flex sig up to the splenic flexure and did not see obvious pathology, but again saw a formed fecal stool. PROCEDURE NOTE: After informed consent was obtained, the patient was brought to the endoscopy suite, placed in the bed in left lateral decubitus position and administered IV sedation by the LACE MACHINE OPERATOR who then monitored her vitals the entire time, heart rate, blood pressure and pulse ox and scope was inserted. Immediately upon entry noted large formed fecal material in the rectum, pushed passes through sigmoid and then all the descending colon as well. Tried to push passes, but blockage at the splenic flexure, so I elected to stop, withdrew the scope, insufflating to look circumferentially at the jones, did not see anything did not see any diverticula, but again formed fecal material blocking the jones and blocking visualization. I then pulled the scope down into the rectum and then out. The patient tolerated the procedure and recovered in endoscopy suite. Job ID: [id number] DocumentID: [id number] Dictated Date: 08/13/2018 11:22:28 Online Community Manager Date: 08/13/2018 13:48:56 Dictated By: DEONDRE ROMAN DO
== END 2018-08-13 11:45 | disposition home or self-care (01) ==
LOC: ENDO 07:50
PROVIDERS: ATTEND Surgery
DX: K62.5 Hemorrhage of anus and rectum (principal); Z86.010 Personal history of colon polyps; Z88.0 Allergy status to penicillin; Z88.5 Allergy status to narcotic agent; I10 Essential (primary) hypertension; E78.5 Hyperlipidemia, unspecified; F32.9 Major depressive disorder, single episode, unspecified; Z85.118 Personal history of other malignant neoplasm of bronchus and lung; E66.01 Morbid (severe) obesity due to excess calories; Z68.42 Body mass index [BMI] 45.0-49.9, adult

== ENCOUNTER 2018-08-25 15:50 | Outpatient (CLI) | payer MEDICARE, MEDICAID ==
[~2018-08-25] VITALS: Ht 157.5 cm; Wt 117.9 kg
== END 2018-08-25 16:06 | disposition home or self-care (01) ==
LOC: PREOP 15:50
PROVIDERS: ATTEND Surgery
DX: Z01.818 Encounter for other preprocedural examination (principal)

== ENCOUNTER 2018-08-27 12:14 | Day surgery (SDC) | payer MEDICARE, MEDICAID ==
[~2018-08-27] VITALS: Ht 157.5 cm; Wt 117.9 kg
[2018-08-27 12:20] VITALS: BP 119/72
[2018-08-27] MEDS ORDERED: LACTATED RINGERS 1,000 ML IV STA (12:23)
[2018-08-27] MEDS ORDERED: LACTATED RINGERS 1,000 ML IV ONE (12:29)
--- OUTSIDE RECORDS SUMMARY | 2018-08-27 12:42 | XMS REPORT | Encounter Summary ---
Author Author [facility] Organization [facility] Address Unknown Phone Unavailable Care Team Providers Care Veterinary Virologist Name Role Phone Michael Sutton MD Unavailable Unavailable Mary Whittington MD PCP Jessica Valera Unavailable Maggie Puente Unavailable Unavailable Mary Telles HEALTH SCIENCES PROGRAM COORDINATOR Unavailable Bam Ritter MD Unavailable Radha Bo LPN Unavailable Unavailable Jose Sanchez MD Unavailable Reason for Visit * Auth/Cert Referred By Contact Referred To Contact Status Reason Specialty Diagnoses / Procedures Diagnoses Chronic pancreatitis, unspecified pancreatitis type (HCC) Nausea Generalized abdominal pain Chronic pancreatitis, unspecified pancreatitis type (HCC) [K86.1] Nausea [R11.0] Generalized abdominal pain [R10.84] P rocedures OH EGD TRANSORAL BIOPSY SINGLE/MULTIPLE OH EDG US EXAM SURGICAL ALTER STOM DUODENUM/JEJUNUM ESOPHAGOGASTRODUOD ENOSCOPY WITH BIOPSY - FLEXIBLE ESOPHAGOGASTRODUOD ENOSCOPY WITH ENDOSCOPIC ULTRASOUND EXAMINATION - FLEXIBLE Encounter Details Care Team Description Date Type Department Hal Sparks MD [address] [facility] [address] [place] [address] Chronic pancreatitis, unspecified pancreatitis type (HCC) 08/22/2018 Hospital Gastrointenstinal Encounter Endoscopy [address] [place] [address] Social History Date Tobacco Use Types Packs/Day [...] Vital Signs Time Taken Vital Sign Reading 08/22/2018 8:50 AM AMMONIA REFRIGERATION WORKER Blood Pressure 115/86 08/22/2018 8:54 AM AMMONIA REFRIGERATION WORKER Pulse 89 08/22/2018 8:30 AM AMMONIA REFRIGERATION WORKER Temperature 36.8 C (98.2 F) - Respiratory Rate - 08/22/2018 8:53 AM AMMONIA REFRIGERATION WORKER Oxygen Saturation 96% - Inhaled Oxygen - Concentration 08/22/2018 7:00 AM AMMONIA REFRIGERATION WORKER Weight 122.5 kg (270 lb) 08/22/2018 7:00 AM AMMONIA REFRIGERATION WORKER Height 157.5 cm (5' 2") 08/22/2018 7:00 AM AMMONIA REFRIGERATION WORKER Body Mass Index 49.38 in this encounter Functional Status Date of [...] cognitive impairment: Yes as of this encounter Discharge Instructions * Discharge Instr - Education* Mary Lechuga RN - 08/22/2018 8:46 AM AMMONIA REFRIGERATION WORKER EGD/Upper EUS/ERCP/Antegrade Enteroscopy Post Upper Endoscopy Instructions [...] will notify you post procedure. SPECIFIC INSTRUCTIONS INPATIENTS: Ask for help when you get up in your room, as you may still be drowsy from your sedation. OUTPATIENTS: A. Because of sedation and lack of coordination, UNTIL TOMORROW, DO NOT: 1. Operate any motorized vehicle - this includes driving. 2. Sign any legal documents or conduct important business matters. 3. Use any dangerous machinery (chain saw, lawnmower, etc.). 4. Drink any alcoholic beverages. Should you have any questions or concerns after your procedure please call [phone] M-F 8am-5:00 pm. After 5:00 pm, holidays or weekends call [phone] and ask for the GI Doctor insulation manager. NIA REFRIGERATION WORKER in this encounter Medications at Time of Discharge Start Date End Date Medication Sig Dispensed Refills acetaminophen (TYLENOL) Take 1,000 mg 0 500 mg tablet by mouth every 6 hours as needed for Pain (patient does not take more than four per day). Max of 4,000 mg of acetaminophen in 24 hours. 07/15/2018 cyanocobalamin (VITAMIN INJECT 1 ML 1 mL 11 B-12, RUBRAMIN) 1,000 INTRAMUSCULAR mcg/mL LY EVERY 30 injectionIndications: DAYS. Medication monitoring encounter 07/05/2018 cyclobenzaprine Every 8HRS 0 (FLEXERIL) 10 mg tablet diphenhydrAMINE (BENADRYL Take 50 mg by 0 ALLERGY) 25 mg tablet mouth every 6 hours as needed. estradiol (ESTRACE) 2 mg Take 3 mg by 0 tablet mouth at bedtime daily. gabapentin (NEURONTIN) Take 100 mg 0 100 mg capsule by mouth every 8 hours. 04/11/2017 HYDROcodone/acetaminophen Take 1 tablet 20 tablet 0 (NORCO) 7.5/325 mg by mouth tabletIndications: Pain every 6 hours as needed for Pain Indications: PAIN 04/09/[address](+) Take one 30 capsule [...] by 0 tablet mouth at bedtime daily. 05/13/2018 sertraline (ZOLOFT) 50 mg Daily 0 tablet as of this encounter H&P Notes * Joel Cantu MD - 08/22/2018 8:12 AM AMMONIA REFRIGERATION WORKER Pre Procedure History and Physical/Sedation Plan Name:Janeth Rajput :1985 Age: 33 y.o. Date of Service: 08/22/2018 Date of Procedure: 08/22/2018 Planned Procedure(s): GI: EGD and EUS Sedation/Medication Plan: MAC (Monitored Anesthesia Care) Discussion/Reviews: Physician has discussed risks and alternatives of this type of sedation and above planned procedures with patient Chief Complaint: Chronic pancreatitis, history of negative cancer History of Present Illness: Janeth Rajput is a 33 y.o. female with history of chronic pancreatitis, pancreatic divisum, and strong family history of pancreatic cancer, returns for EGD and EUS. Previous Anesthetic/Sedation History: NA Past Medical History: Diagnosis Date Abdominal pain, [...] with bupivacaine HX HYSTERECTOMY total NEPHRECTOMY Left 03/2017 NEPHRECTOMY Left 04/10/2017 NEPHRECTOMY LAPAROSCOPY performed by Abel Poe MD at [facility]iop UPPER GASTROINTESTINAL ENDOSCOPY N/A 01/31/2018 ESOPHAGOGASTRODUODENOSCOPY ENDOSCOPIC ULTRASOUND performed by Hal Sparks MD at ENDO/GI CELIAC PLEXUS BLOCK HX KNEE SURGERY , removal of "extra bone" HX TONSILLECTOMY Past Medical History: Diagnosis Date Abdominal pain, [...] with bupivacaine HX HYSTERECTOMY total NEPHRECTOMY Left 03/2017 NEPHRECTOMY Left 04/10/2017 NEPHRECTOMY LAPAROSCOPY performed by Abel Poe MD at [facility] UPPER GASTROINTESTINAL ENDOSCOPY N/A 01/31/2018 ESOPHAGOGASTRODUODENOSCOPY ENDOSCOPIC ULTRASOUND performed by Hal Sparks MD at ENDO/GI CELIAC PLEXUS BLOCK HX KNEE SURGERY , removal of "extra bone" HX TONSILLECTOMY Family History Problem Relation Age of Onset Hypertension Father Diabetes Father Cancer-Ovarian Mother Cancer Mother Cervix Arthritis-rheumatoid Mother Hypertension Mother Cancer-Ovarian Maternal Grandmother Cancer Maternal Grandmother Cervix Cancer-Colon Maternal Grandfather Heart Disease Other Social History Tobacco Use Smoking status: Never Smoker Smokeless tobacco: Never Used Substance Use Topics Alcohol use: No Drug use: No Social History Substance and Sexual Activity Drug Use No Allergies: Penicillins; Demerol (pf) [meperidine (pf)]; Fentanyl; and Vancomycin Medications Current Facility-Administered Medications Medication sodium chloride 0.9 % infusion Review of Systems: All other systems reviewed and are negative. Physical Exam: Temp: 36.8 C (98.2 F) (08/22 699) Pulse: 89 (08/22 699) Respirations: 18 PER MINUTE (08/22 699) BP: 134/91 (08/22 699) General: Awake, alert, oriented 3, obese HEENT: Moist mucosal membranes, anicteric sclera Neck: Supple, no JVD Lymph: No cervical or supraclavicular lymphadenopathy Heart: Regular rate and rhythm, intact distal pulses Lungs: Breathing comfortably on room air, no respiratory distress Abdomen: Soft, nontender, nondistended, normal bowel sounds, no hepatosplenomegaly appreciated Lower extremities: No edema, good pulses bilaterally Neurologic: Grossly intact, no focal deficits Skin: Warm, dry Airway: per anesthesia Anesthesia Classification: Per Anesthesia NPO Status: Acceptable Status: Not Lab/Radiology/Other Diagnostic Tests Labs: Relevant labs reviewed Joel Cantu MD Pager NIA REFRIGERATION WORKER in this encounter Plan of Treatment Not on fileas of this encounter Procedures Comments Procedure Name Priority Date/Time Associated Diagnosis ENDOSCOPIC ULTRASOUND 08/22/2018 REPORT 7:47 AM AMMONIA REFRIGERATION WORKER in this encounter Results * ENDOSCOPIC ULTRASOUND REPORT (08/22/2018 7:47 AM AMMONIA REFRIGERATION WORKER) Provation Report Patient Name: Regulo WILKS OTHER RESULTS Procedure Date: 08/22/2018 7:[address] [facility]: [id number] Date of : 1985 Gender: Female Attending Physician: Hal Sparks MD Procedure: Upper EUS Indications: Epigastric abdominal pain, Family h/o chronic pancreatitis, pancreas divisum Providers: Hal Sparks MD (Doctor), Lorenza Powers RN (Nurse), Ana Fuentes (Skimmer) Referring Physician: Randy Viveros MD Medications: Monitored Anesthesia Care Complications: No immediate [...] anticoagulant or antiplatelet agents. ASA Grade Assessment: II - A patient with mild systemic disease. After reviewing the risks and [...] The patient tolerated the procedure well. Findings: Linear EUS scope was passed. Celiac trunk was seen and there were no celiac lymph nodes visualized. The left adrenal the left lobe of the liver were normal appearing. The pancreas showed features of chronic pancreatitis in the form of lobulation, hyperechoic foci and stranding. There was evidence of pancreas divisum. The dorsal duct was 1.6 mm. The pancreatic duct in the body was 1.7 mm. Ventral pancreatic duct could not be seen. CBD was 3.8 mm. There was no evidence of mass in the pancreas. Impression: - Linear EUS scope was passed. Celiac trunk was seen and there were no celiac lymph nodes visualized. The left adrenal the left lobe of the liver were normal appearing. The pancreas showed features of chronic pancreatitis in the form of lobulation, hyperechoic foci and stranding. There was evidence of pancreas divisum. The dorsal duct was 1.6 mm. The pancreatic duct in the body was 1.7 mm. Ventral pancreatic duct could not be seen. CBD was 3.8 mm. There was no evidence of mass in the pancreas. Estimated Blood Loss: Estimated blood loss: none. Recommendation: - Patient has a contact number available for emergencies. The signs and symptoms of potential delayed complications were discussed with the patient. Return to normal activities tomorrow. Written discharge instructions were provided to the patient. - Resume previous diet. - Continue present medications. - Return to referring physician. Scope In: 8:21:05 AM Scope Out: 8:27:00 AM Total Procedure Duration Time 0 hours 5 minutes 55 seconds Procedure Code(s): --- Professional --- 46867, Esophagogastroduodenoscopy, flexible, transoral; with endoscopic ultrasound examination limited to the esophagus, stomach or duodenum, and adjacent structures CPT copyright 2017 [employer]. All rights reserved. The codes documented in this report are preliminary and upon health information coder review may be revised to meet current compliance requirements. Attending Participation: I personally performed the entire procedure. Hal Sparks MD 08/22/2018 8:38:22 AM The attending physician has electronically signed and finalized this document. Number of Addenda: 0 Note Initiated On: 08/22/2018 7:47 AM Performing Organization Address City/State/Zipcode Phone Number [facility] OTHER RESULTS in this encounter Visit Diagnoses Not on filein this encounter Administered Medications Action Date Dose Rate Site Medication Order MAR Action 08/22/2018 7:26 AM AMMONIA REFRIGERATION WORKER 1,000 mL sodium chloride 0.9 % infusion Given - New 1,000 mL, Intravenous, CONTINUOUS, Bag Starting Sat08/22/18 at 0730, Until Sat08/22/18 at 1121, Pre-Op in this encounter
--- OUTSIDE RECORDS SUMMARY | 2018-08-27 12:42 | XMS REPORT | Encounter Summary ---
Author Author [facility] Organization [facility] Address Unknown Phone Unavailable Care Team Providers Care Complaint Supervisor Name Role Phone Michael Sutton MD Unavailable Unavailable Mary Whittington MD PCP Jessica Valera Unavailable Maggie Puente Unavailable Unavailable Mary Telles APRN Unavailable Bam Ritter MD Unavailable Radha Bo LPN Unavailable Unavailable Jose Sanchez MD Unavailable Reason for Visit * Reason Comments Medication Refill Encounter Details Care Team Description Date Type Department Randy Nunez MD [address] [place] [address] Medication monitoring encounter 07/15/2018 Refill [facility] [address] [place] [address] Social History Date Tobacco Use [...]
--- OUTSIDE RECORDS SUMMARY | 2018-08-27 12:42 | XMS REPORT | Encounter Summary ---
Author Author [facility] Organization [facility] Address Unknown Phone Unavailable Care Team Providers Care Welder Fitter Apprentice Name Role Phone Michael Sutton MD Unavailable Unavailable Mary Whittington MD PCP Jessica Valera Unavailable Maggie Puente Unavailable Unavailable Mary Telles APRN Unavailable Bam Ritter MD Unavailable Radha Bo LPN Unavailable Unavailable Jose Sanchez MD Unavailable Reason for Visit * Reason Comments Medication Refill Encounter Details Care Team Description Date Type Department Randy Nunez MD [address] [place] [address] Medication monitoring encounter 08/18/2018 Refill [facility] [address] [place] [address] Social History Date Tobacco Use [...]
--- OUTSIDE RECORDS SUMMARY | 2018-08-27 12:42 | XMS REPORT | Clinical Summary ---
Author Author [facility] Organization [facility] Address Unknown Phone Unavailable Care Team Providers Care Online Education Manager Name Role Phone Michael Sutton MD [...] in the Health Information Management department at [phone] for further assistance in locating additional records.[facility] Allergies Comments Active Allergy Reactions Severity [...] 0 tablet mouth at bedtime daily. Active HYDROcodone/acetaminophen Take [...] Place vomiting on tongue to disolve. Active prochlorperazine maleate Take one-half 30 tablet [...] EVERY 30 injectionIndications: DAYS. Medication monitoring encounter Active cyclobenzaprine Every 8HRS 0 (FLEXERIL) 10 mg tablet 9 Active sertraline (ZOLOFT) 50 mg Daily 0 tablet 8 Active gabapentin (NEURONTIN) Take 100 mg 0 100 mg capsule by mouth every 8 hours. 08/22/2018 Discontinued fluoxetine (PROZAC) 20 mg Take 2 90 capsule 3 capsule capsules by 7 mouth at bedtime daily. 08/22/2018 Discontinued osxztr-ivxnietx-pzibzdi Take 3 300 tablet 5 (VIOKACE) 20,880-78,300- tablets by 8 78,300 unit tab mouth three times daily with meals. Take 2 with snacks. 08/22/2018 Discontinued hydrocortisone 2.5% Apply 30 g 0 (PROCTO-MED HC) 2.5 % externally 8 rectal cream and internally to area(s) twice to three times a day as needed. 08/22/2018 Discontinued cyanocobalamin (VITAMIN INJECT 1 ML 1 mL 3 B-12, RUBRAMIN) 1,000 INTRAMUSCULAR 9 mcg/mL LY EVERY 30 injectionIndications: DAYS. Medication monitoring encounter Active Problems Problem Noted Date Other chronic pancreatitis 01/14/2018 Overview: Added automatically from request for surgery [id number] Intractable vomiting with nausea 01/14/2018 Overview: Added automatically from request for surgery [id number] Left renal mass 04/10/2017 Renal mass 03/21/2017 Overview: Added automatically from request for surgery [id number] 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 06/24/2013 Overview: S/P HOLLAND, BSO / Depression 06/24/2013 S/P cholecystectomy 06/24/2013 Overview: 2007 S/P appendectomy 06/24/2013 Overview: November 2012 Pancreatitis 10/23/2011 Encounters Care Team Description Date Type Specialty Ekaterina Chairez, GLOBAL SOURCING MANAGER 08/22/2018 Anesthesia Event Hal Sparks MD ESOPHAGOGASTRODUODENOSCOPY WITH ENDOSCOPIC ULTRASOUND EXAMINATION - FLEXIBLE 08/22/2018 Surgery Hal Sparks MD Chronic pancreatitis, unspecified pancreatitis type (HCC) 08/22/2018 Hospital Encounter Randy Nunez MD Medication monitoring encounter 08/18/2018 Refill Gastroenterology Randy Nunez MD Medication monitoring encounter 07/15/2018 Refill Gastroenterology Randy Nunez MD Chronic pancreatitis, unspecified pancreatitis type (HCC) (Primary Dx); Nausea; Generalized abdominal pain 06/27/2018 Prep for Case Gastroenterology from Last 3 Months Family History [...] Taken Vital Sign Reading 08/22/2018 8:50 AM WATER PUMP SERVICER Blood Pressure 115/86 08/22/2018 8:54 AM WATER PUMP SERVICER Pulse 89 08/22/2018 8:30 AM WATER PUMP SERVICER Temperature 36.8 C (98.2 F) 05/19/2018 1:06 PM WATER PUMP SERVICER Respiratory Rate 18 08/22/2018 8:53 AM WATER PUMP SERVICER Oxygen Saturation 96% - Inhaled Oxygen - Concentration 08/22/2018 7:00 AM WATER PUMP SERVICER Weight 122.5 kg (270 lb) 08/22/2018 7:00 AM WATER PUMP SERVICER Height 157.5 cm (5' 2") 08/22/2018 7:00 AM WATER PUMP SERVICER Body Mass Index 49.38 Plan of Treatment Health Maintenance Due Date Last Done Comments PHYSICAL (COMPREHENSIVE) 1991 EXAM HIV SCREENING 1999 DTAP/TDAP VACCINES (1 - 2002 Tdap) CERVICAL CANCER SCREENING 2014 INFLUENZA VACCINE Completed 06/03/2018 Procedures Comments Procedure Name Priority Date/Time Associated Diagnosis ENDOSCOPIC ULTRASOUND 08/22/2018 REPORT 7:47 AM WATER PUMP SERVICER from Last 3 Months Results * ENDOSCOPIC ULTRASOUND REPORT (08/22/2018 7:47 AM WATER PUMP SERVICER) Provation Report Patient Name: Regulo WILKS OTHER RESULTS Procedure Date: 08/22/2018 7:47 AM CSN: [id number] Date of : 1985 Gender: Female Attending Physician: Hal Sparks MD Procedure: Upper EUS Indications: Epigastric abdominal pain, Family h/o chronic pancreatitis, pancreas divisum Providers: Hal Sparks MD (Doctor), Lorenza Powers RN (Nurse), Ana Fuentes (Chemical Applicator) Referring Physician: Randy Viveros MD Medications: Monitored [...] 55 seconds Procedure Code(s): --- Professional --- 88142, Esophagogastroduodenoscopy, flexible, transoral; with endoscopic ultrasound examination limited to the esophagus, stomach or duodenum, and adjacent structures CPT copyright 2017 [employer]. All rights reserved. The codes documented in this report are preliminary and upon tank stave assembler review may be revised to meet current compliance requirements. Attending Participation: I personally performed the entire procedure. Hal Sparks MD 08/22/2018 8:38:22 AM The attending physician has electronically signed and finalized this document. Number of Addenda: 0 Note Initiated On: 08/22/2018 7:47 AM Performing Organization Address City/State/Zipcode Phone Number [facility] OTHER RESULTS from Last 3 Months Insurance Payer Benefit Subscriber ID Type Phone Address Plan / Group MEDICARE MEDICARE xxxxxxxxxxx Medicare PART A AND B Advance Directives Patient has advance care planning documents, and code status on file. For more information, please contact: [facility] [address] [place] [address] Date Inactivated Comments Code Status Date Activated 04/11/2017 4:57 PM Full Code 04/10/2017 5:31 PM Provider has discussed Code Status No, discussion not w/Patient or Family? necessary based on Dx
--- OUTSIDE RECORDS SUMMARY | 2018-08-27 12:42 | XMS REPORT | Encounter Summary ---
Author Author [facility] Organization [facility] Address Unknown Phone Unavailable Care Team Providers Care Trial Management Associate Name Role Phone Michael Sutton MD Unavailable Unavailable Mary Whittington MD PCP Jessica Valera Unavailable Maggie Puente Unavailable Unavailable Mary Telles ORDER ADMINISTRATOR Unavailable Bam Ritter MD Unavailable Radha Bo LPN Unavailable Unavailable Jose Sanchez MD Unavailable Reason for Visit * Auth/Cert Referred By Contact Referred To Contact Status Reason Specialty Diagnoses / Procedures Diagnoses Chronic pancreatitis, unspecified pancreatitis type (HCC) Nausea Generalized abdominal pain Chronic pancreatitis, unspecified pancreatitis type (HCC) [K86.1] Nausea [R11.0] Generalized abdominal pain [R10.84] P rocedures [place] EGD TRANSORAL BIOPSY SINGLE/MULTIPLE [place] EDG US EXAM SURGICAL ALTER STOM DUODENUM/JEJUNUM ESOPHAGOGASTRODUOD ENOSCOPY WITH BIOPSY - FLEXIBLE ESOPHAGOGASTRODUOD ENOSCOPY WITH ENDOSCOPIC ULTRASOUND EXAMINATION - FLEXIBLE Encounter Details Care Team Description Date Type Department Hal Sparks MD [address] [facility] [address] [place] [address] ESOPHAGOGASTRODUODENOSCOPY WITH ENDOSCOPIC ULTRASOUND EXAMINATION - FLEXIBLE 08/22/2018 Surgery Gastrointenstinal Endoscopy [address] [place] [address] Social History Date Tobacco Use [...] Taken Vital Sign Reading 08/22/2018 8:50 AM HUMAN RESOURCE STATISTICIAN Blood Pressure 115/86 08/22/2018 8:54 AM HUMAN RESOURCE STATISTICIAN Pulse 89 08/22/2018 8:30 AM HUMAN RESOURCE STATISTICIAN Temperature 36.8 C (98.2 F) - Respiratory Rate - 08/22/2018 8:53 AM HUMAN RESOURCE STATISTICIAN Oxygen Saturation 96% - Inhaled Oxygen - Concentration 08/22/2018 7:00 AM HUMAN RESOURCE STATISTICIAN Weight 122.5 kg (270 lb) 08/22/2018 7:00 AM HUMAN RESOURCE STATISTICIAN Height 157.5 cm (5' 2") 08/22/2018 7:00 AM HUMAN RESOURCE STATISTICIAN Body Mass Index 49.38 in this encounter [...] Daily 0 tablet as of this encounter Plan of Treatment Not on fileas of this encounter Procedures Comments Procedure Name Priority Date/Time Associated Diagnosis ENDOSCOPIC ULTRASOUND 08/22/2018 REPORT 7:47 AM HUMAN RESOURCE STATISTICIAN in this encounter Results * ENDOSCOPIC ULTRASOUND REPORT (08/22/2018 7:47 AM HUMAN RESOURCE STATISTICIAN) Provation Report Patient Name: Regulo WILKS OTHER RESULTS Procedure Date: 08/22/2018 7:47 AM [facility]: [id number] Date of : 1985 Gender: Female Attending Physician: Hal Sparks MD Procedure: Upper EUS Indications: Epigastric abdominal pain, Family h/o chronic pancreatitis, pancreas divisum Providers: Hal Sparks MD (Doctor), Lorenza Powers RN (Nurse), Ana Fuentes (Tank Car Cleaner) Referring Physician: Randy Viveros MD Medications: Monitored [...] 55 seconds Procedure Code(s): --- Professional --- 38096, Esophagogastroduodenoscopy, flexible, transoral; with endoscopic ultrasound examination limited to the esophagus, stomach or duodenum, and adjacent structures CPT copyright 2017 [employer]. All rights reserved. The codes documented in this report are preliminary and upon picture booker review may be revised to meet current [...] Diagnosis Chronic pancreatitis, unspecified pancreatitis type (HCC) Nausea Nausea alone Generalized abdominal pain Abdominal pain, generalized in this encounter Administered Medications Action Date Dose Rate Site Medication Order MAR Action 08/22/2018 7:26 AM HUMAN RESOURCE STATISTICIAN 1,000 mL sodium chloride 0.9 % infusion Given - New 1,000 mL, Intravenous, CONTINUOUS, Bag Starting Sat08/22/18 at 0730, Until Sat08/22/18 at 1121, Pre-Op in this encounter
--- OUTSIDE RECORDS SUMMARY | 2018-08-27 12:42 | XMS REPORT | Encounter Summary ---
Author Author [facility] Organization [facility] Address Unknown Phone Unavailable Care Team Providers Care Mobile Home Technician Name Role Phone Michael Sutton MD Unavailable Unavailable Mary Whittington MD PCP Jessica Valera Unavailable Maggie Puente Unavailable Unavailable Mary Telles APRN Unavailable Bam Ritter MD Unavailable Radha Bo LPN Unavailable Unavailable Jose Sanchez MD Unavailable Encounter Details Care Team Description Date Type Department Randy Nunez MD [address] [place] [address] Chronic pancreatitis, unspecified pancreatitis type (HCC) ( Primary Dx); Nausea; Generalized abdominal pain 06/27/2018 Prep for Case [facility] [address] [facility] [place] [address] Social History Date Tobacco Use [...] fileas of this encounter Visit Diagnoses Diagnosis Chronic pancreatitis, unspecified pancreatitis type (HCC) - Primary Nausea Nausea alone Generalized abdominal pain Abdominal pain, generalized in this encounter
--- OUTSIDE RECORDS SUMMARY | 2018-08-27 12:42 | XMS REPORT | Encounter Summary ---
Author Author [facility] Organization [facility] Address Unknown Phone Unavailable Care Team Providers Care Fashion Marketer Name Role Phone Michael Sutton MD Unavailable Unavailable Mary Whittington MD PCP Jessica Valera Unavailable Maggie Puente Unavailable Unavailable Mary Telles SALES AND SERVICE CHANGE LEADER Unavailable Bam Ritter MD Unavailable Radha Bo LPN Unavailable Unavailable Jose Sanchez MD Unavailable Reason for Visit * Auth/Cert Referred By Contact Referred To Contact Status Reason Specialty Diagnoses / Procedures Diagnoses Chronic pancreatitis, unspecified pancreatitis type (HCC) Nausea Generalized abdominal pain Chronic pancreatitis, unspecified pancreatitis type (HCC) [K86.1] Nausea [R11.0] Generalized abdominal pain [R10.84] P rocedures [place] EGD TRANSORAL BIOPSY SINGLE/MULTIPLE [place] EDG US EXAM SURGICAL ALTER STOM DUODENUM/JEJUNUM ESOPHAGOGASTRODUOD ENOSCOPY WITH BIOPSY - FLEXIBLE ESOPHAGOGASTRODUOD ENOSCOPY WITH ENDOSCOPIC ULTRASOUND EXAMINATION - FLEXIBLE Encounter Details Care Team Description Date Type Department Ekaterina Chairez CRNA [address] [place] [address] 08/22/2018 Anesthesia Gastrointenstinal Event Endoscopy [address] [place] [address] Anesthesia Record Responsible Anesthesiologist Anesthesia Start Time Anesthesia Stop Time Procedure Name Janice Dickerson MD 08/22/18 0815 08/22/18 0832 ESOPHAGOGASTRODUODENOSCOP Y WITH ENDOSCOPIC ULTRASOUND EXAMINATION - FLEXIBLE (N/A ) Date Time Event Comment 715 AN Equip Check 2018 0742 0815 In Room 0815 Anes Start 0818 An Start Data 0818 Start Supplemental O2 0820 Anesthesia Ready 0821 Proc Start 0829 an stop data 0832 Handoff to RN I completed my SBAR handoff to the receiving nurse. 0832 An Stop Meds Name Total lidocaine (2%) 200 mg/10mL Injection 120 mg syringe propofol (DIPRIVAN) 200 mg/ 20 mL 130 mg injection (VIAL) propofol (DIPRIVAN) infusion 127.4 mg ondansetron (ZOFRAN) injection 4 mg sodium chloride 0.9 % infusion 200 mL * Name O2 N2O Inspired N2O * No blood administrations on file. Removal Type Details Placement Wounds 04/10/17; 1039; Left; Flank; Surgical 04/10/17 1039 by Marco, (NOT for Incision; DERMABOND ON PORT SITES TIMUR Michelle Pressure Injuries) 08/22/18 0857 by Mary Lechuga RN Peripheral 08/22/18; 0724; RN; R; Inner; Forearm; 08/22/18 0724 by SARAH Lechuga 20 G; No; N/A; 2; 08/22/18; 0857 TIMUR Hernandez in this encounter Social History Date Tobacco Use Types Packs/Day [...] Rate Site Medication Order MAR Action 08/22/2018 8:18 AM CARE TECH 120 mg lidocaine (PF) injection Given INTRA-PROCEDURE MED, Starting Sat08/22/18 at 0818, Until Sat08/22/18 at 0834, Anesthesia Intra-op 08/22/2018 8:18 AM CARE TECH 4 mg ondansetron (ZOFRAN) injection Given INTRA-PROCEDURE MED, Starting Sat08/22/18 at 0818, Until Sat08/22/18 at 0834, Anesthesia Intra-op 08/22/2018 8:24 AM CARE TECH 140 mcg/kg/min 102.9 mL/hr propofol (DIPRIVAN) infusion Dose/Rate 50 mL, Intravenous, INTRA-PROCEDURE Change MED(CONT), Starting Sat08/22/18 at 0819, Until Sat08/22/18 at 0834, Anesthesia Intra-op 130 mcg/kg/min 95.6 mL/hr Dose/Rate Change 08/22/2018 8:22 AM CARE TECH 120 mcg/kg/min 88.2 mL/hr Given - New Bag 08/22/2018 8:19 AM CARE TECH 08/22/2018 8:26 AM CARE TECH 10 mg propofol (DIPRIVAN) injection Given INTRA-PROCEDURE MED, Starting Sat08/22/18 at 0819, Until Sat08/22/18 at 0834, Anesthesia Intra-op 20 mg Given 08/22/2018 8:25 AM CARE TECH 20 mg Given 08/22/2018 8:23 AM CARE TECH in this encounter
[2018-08-27] MEDS ORDERED: PROPOFOL INJECTION 50 ML IV ONE (13:04)
[2018-08-27] MEDS ORDERED: MIDAZOLAM 5 MG/5 ML (VERSED) VIAL ONE (13:04)
--- NOTE | 2018-08-27 13:47 | Progress Note-Pre Operative ---
Pre-Operative Progress Note H&P Reviewed The H&P was reviewed, patient examined and no changes noted. Time Seen by Provider: 13:42 Date H&P Reviewed: Aug 27, 2018 Time H&P Reviewed: 13:43 Pre-Operative Diagnosis: rectal bleed LINDSEY MARROQUIN DO Aug 27, 2018 13:47
[2018-08-27] MEDS ORDERED: proPOfol 200 MG/20 ML (DIPRIVAN) VIAL IV ONE (15:23)
--- NOTE | 2018-08-27 15:37 | Progress Note-Post Operative ---
Post-Operative Progess Note Surgeon (s)/Maintenance Engineer (s) Surgeon LINDSEY MARROQUIN DO Maintenance Engineer: none Pre-Operative Diagnosis rectal bleed Post-Operative Diagnosis Internal Hemorrhoids Procedure & Operative Findings Date of Procedure 08/27/18 Procedure Performed/Findings Colonoscopy Anesthesia Type IV sedation by PAYROLL REPRESENTATIVE Estimated Blood Loss Estimated blood loss (mL): none Specimens/Packing Specimens Removed none LINDSEY MARROQUIN DO Aug 27, 2018 15:36
--- NOTE | 2018-08-27 15:38 | Endoscopy Discharge Instruct ---
Endo Procedure/Findings Findings 1.: Internal Hemorrhoids Discharge Instructions - Activity: You might feel a little sleepy until tomorrow. This is due to the medicine you received to relax you. Until tomorrow, you should: NOT drive a car, operate machinery or power tools. NOT drink any alcoholic beverages. NOT make any important decisions or sign importortant papers. Do not return to work until tomorrow, unless otherwise instructed. Resume previous activities tomorrow. Diet: Start by taking liquids. If you tolerate liquids, advance to solid food. make an appointment for 2 weeks Notify Physician - If you experience excessive bleeding, unusual abdominal pain, fever, or chest pain, contact your doctor immediately. Follow-Up: - I have received and understand the above instructions and will call my doctor if I have any further questions. Patient Signature Date Nurse Signature Other (Relationship) LINDSEY MARROQUIN DO Aug 27, 2018 15:38
[2018-08-27 15:45] VITALS: BP 130/78
[2018-08-27 16:15] VITALS: BP 120/75
[2018-08-27 16:30] VITALS: BP 120/75
--- NOTE | 2018-08-27 21:00 | OPERATIVE REPORT ---
DATE OF SERVICE: 08/27/2018 PREOPERATIVE DIAGNOSIS: Rectal bleed. POSTOPERATIVE DIAGNOSIS: Internal hemorrhoids. PROCEDURE: Colonoscopy. SURGEON: Deondre Roman DO RECRUITING INTERN: None. ANESTHESIA: IV sedation by the BYPRODUCTS EXTRACTOR. SPECIMENS: None. BLOOD LOSS: None. FLUIDS: Per anesthesia. POSTOPERATIVE CONDITION: Stable. INDICATION FOR PROCEDURE: The patient is a 33-year-old female, who has been complaining of rectal bleeding and needed a workup. FINDINGS: The patient had some small internal hemorrhoids, but no other obvious pathology. PROCEDURE NOTE: After informed consent was obtained, the patient was brought to the endoscopy suite, placed in the left lateral decubitus position. She was administered IV sedation by the BYPRODUCTS EXTRACTOR, who then monitored her vitals the entire time, heart rate, blood pressure and pulse ox and the scope was inserted, pushed all the way about 150 cm, able to get to the cecum, took a picture of the appendiceal orifice and then able to get into the terminal ileum, took a picture and then slowly withdrew the scope insufflating to look circumferentially at the jones looking at the cecum, up the ascending colon to the hepatic flexure, then down the transverse colon, the splenic flexure, into the descending colon and down the sigmoid and finally into the rectum, retroflexed in rectal vault, saw some minimal internal hemorrhoids, took a picture of this and then removed the scope. The patient tolerated the procedure. She was recovered in the endoscopy suite. Job ID: [id number] DocumentID: [id number] Dictated Date: 08/27/2018 15:35:25 Asbestos Textile Supervisor Date: 08/27/2018 20:59:32 Dictated By: DEONDRE ROMAN DO
== END 2018-08-27 16:30 | disposition home or self-care (01) ==
LOC: ENDO 12:14
PROVIDERS: ATTEND Surgery
DX: K64.8 Other hemorrhoids (principal); K62.5 Hemorrhage of anus and rectum; I10 Essential (primary) hypertension; E78.5 Hyperlipidemia, unspecified; J45.909 Unspecified asthma, uncomplicated; G62.9 Polyneuropathy, unspecified; F41.9 Anxiety disorder, unspecified; F32.9 Major depressive disorder, single episode, unspecified; G25.81 Restless legs syndrome; Z86.010 Personal history of colon polyps; Z79.899 Other long term (current) drug therapy

== ENCOUNTER 2018-09-09 13:45 | Emergency (ER) | payer MEDICARE, MEDICAID ==
[~2018-09-09] VITALS: Ht 157.5 cm; Wt 117.9 kg
--- OUTSIDE RECORDS SUMMARY | 2018-09-09 13:52 | XMS REPORT | Encounter Summary ---
Author Author [facility] Organization [facility] Address Unknown Phone Unavailable Care Team Providers Care Heavy Equipment Sales Manager Name Role Phone Michael Sutton MD Unavailable Unavailable Mary Whittington MD PCP Jessica Valera Unavailable Maggie Puente Unavailable Unavailable Mary Telles APRN Unavailable Bam Ritter MD Unavailable Radha Bo LPN Unavailable Unavailable Jose Sanchez MD Unavailable Reason for Visit * Reason Comments Medication Refill Encounter Details Care Team Description Date Type Department Randy Nunez MD [address] [facility] [address] [place] [address] Medication monitoring encounter 08/18/2018 Refill [facility] [address] [place] [address] Social History Date Tobacco Use Types Packs/Day Years Used Never Smoker Smokeless Tobacco: Never Used Alcohol Use Drinks/Week oz/Week Comments No Sex Assigned at Date Recorded Not on file Industry Job Start Date Occupation Not on file Not on file Not on file Travel End Travel History Travel Start No recent travel history available. documented as of this encounter Functional Status Date [...] the patient have a cognitive impairment: Yes documented as of this encounter Plan of Treatment Not on filedocumented as of this encounter Visit Diagnoses Diagnosis Medication monitoring encounter Encounter for therapeutic drug monitoring documented in this encounter
--- OUTSIDE RECORDS SUMMARY | 2018-09-09 13:52 | XMS REPORT | Clinical Summary ---
Author Author [facility] Organization [facility] Address Unknown Phone Unavailable Care Team Providers Care Mutual Fund Sales Agent Name Role Phone Michael Sutton MD [...] in the Health Information Management department at [phone] for further assistance in locating additional records.[facility] Allergies Comments Active Allergy Reactions Severity Noted [...] mg of acetaminophen in 24 hours. Active prochlorperazine maleate Take one-half 30 tablet [...] mg capsule by mouth every 8 hours. Active ondansetron (ZOFRAN ODT) DISSOLVE 1 60 tablet 2 8 mg rapid dissolve TABLET IN 9 tabletIndications: MOUTH TWICE Chronic nausea, Chronic DAILY. PLACE vomiting ON TONGUE TO DISSOLVE. 08/22/2018 Discontinued fluoxetine (PROZAC) 20 mg Take 2 90 capsule 3 capsule capsules by 7 mouth at bedtime daily. 09/09/2018 Discontinued ondansetron (ZOFRAN ODT) Dissolve 1 60 tablet 2 8 mg rapid dissolve tablet by 8 tabletIndications: mouth twice Chronic nausea, Chronic daily. Place vomiting on tongue to disolve. 08/22/2018 Discontinued mwijgf-nytbntzs-mvhbusl Take 3 300 tablet 5 (VIOKACE) 20,880-78,300- [...] Overview: Added automatically from request for surgery [id number] Intractable vomiting with nausea 01/14/2018 Overview: Added automatically from request for surgery [id number] Left renal mass 04/10/2017 Renal mass 03/21/2017 Overview: Added automatically from request for surgery [id number] 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 06/24/2013 Overview: S/P HOLLAND, BSO 11/27 Depression 06/24/2013 S/P cholecystectomy 06/24/2013 Overview: 2007 S/P appendectomy 06/24/2013 Overview: November 2012 Pancreatitis 10/23/2011 Encounters Care Team Description Date Type Specialty Utech, Jessica, SANITATION SUPERINTENDENT Chronic nausea; Chronic vomiting 09/09/2018 Refill Gastroenterology Melina Vargas Diarrhea, unspecified type 08/29/2018 Orders Only Gastroenterology Ekaterina Chairez, PHOTO ENGRAVER 08/22/2018 Anesthesia Event Hal Sparks MD ESOPHAGOGASTRODUODENOSCOPY [...] Taken Vital Sign Reading 08/22/2018 8:50 AM DIVISION MERCHANDISE MANAGER Blood Pressure 115/86 08/22/2018 8:54 AM DIVISION MERCHANDISE MANAGER Pulse 89 08/22/2018 8:30 AM DIVISION MERCHANDISE MANAGER Temperature 36.8 C (98.2 F) 05/19/2018 1:06 PM DIVISION MERCHANDISE MANAGER Respiratory Rate 18 08/22/2018 8:53 AM DIVISION MERCHANDISE MANAGER Oxygen Saturation 96% - Inhaled Oxygen - Concentration 08/22/2018 7:00 AM DIVISION MERCHANDISE MANAGER Weight 122.5 kg (270 lb) 08/22/2018 7:00 AM DIVISION MERCHANDISE MANAGER Height 157.5 cm (5' 2") 08/22/2018 7:00 AM DIVISION MERCHANDISE MANAGER Body Mass Index 49.38 Plan of Treatment Health Maintenance Due Date Last Done Comments PHYSICAL (COMPREHENSIVE) 1991 EXAM HIV SCREENING 1999 DTAP/TDAP VACCINES (1 - 2002 Tdap) CERVICAL CANCER SCREENING 2014 INFLUENZA VACCINE Completed 06/03/2018 Procedures Comments Procedure Name Priority Date/Time Associated Diagnosis C DIFFICILE BY PCR Routine 08/26/2018 Diarrhea, unspecified type ESOPHAGOGASTRODUODENOSCOP 08/22/2018 Chronic pancreatitis, Y WITH ENDOSCOPIC 8:00 AM DIVISION MERCHANDISE MANAGER unspecified pancreatitis ULTRASOUND EXAMINATION - type (HCC) FLEXIBLE Nausea Generalized abdominal pain Special Needs 3 Day - Reminder Call - LVM 08/19/18 @ 10:44 am () 1st Call / 1st Reschedule - Cld pt & reschedule d appt 07/01/18 @ 1:07 pm () / Explained to pt that we have to reschedule her EGD / add EUS per Dr Nunez' s office / Pt is aware she is scheduled w/Dr Cobian t an in basket to Mary / Rosanne to check to see which staff to schedule pt with 07/01/18 ()Per Arleen's cxd / change form - Please reschedule to [place] or [place] & add EUS to already ordered EGD / Please call pt 06/30/18 @ 1:32 pm ()1st Call - Cld pt & scheduled appt 06/30/18 @ 9:05 am () ENDOSCOPIC ULTRASOUND 08/22/2018 REPORT 7:47 AM DIVISION MERCHANDISE MANAGER from Last 3 Months Results * C DIFFICILE BY PCR (08/26/2018) Narrative Performed At Performing Organization Address City/State/Zipcode Phone Number OTHER OUTSIDE LAB * ENDOSCOPIC ULTRASOUND REPORT (08/22/2018 7:47 AM DIVISION MERCHANDISE MANAGER) Provation Patient Name: Regulo WILKS OTHER Report Procedure Date: 08/22/2018 7:47 RESULTS AM CSN: [id number] Date of : 1985 Gender: Female Attending Physician: Hal Sparks MD Procedure: Upper EUS Indications: Epigastric abdominal pain, Family h/o chronic pancreatitis, pancreas divisum Providers: Hal Sparks MD (Doctor), Lorenza Powers RN (Nurse), Ana Fuentes (Accounts Receivable Processor) Referring Physician: Randy Viveros MD Medications: Monitored [...] 55 seconds Procedure Code(s): --- Professional --- 98416, Esophagogastroduodenoscopy, flexible, transoral; with endoscopic ultrasound examination limited to the esophagus, stomach or duodenum, and adjacent structures CPT copyright 2017 [employer]. All rights reserved. The codes documented in this report are preliminary and upon sole stapler welt review may be revised to meet current compliance requirements. Attending Participation: I personally performed the entire procedure. Hal Sparks MD 08/22/2018 8:38:22 AM The attending physician has electronically signed and finalized this document. Number of Addenda: 0 Note Initiated On: 08/22/2018 7:47 AM Performing Organization Address City/State/Zipcode Phone Number [facility] OTHER RESULTS from Last 3 Months Insurance Type Payer Benefit Subscriber ID Effective Phone Address Plan / Dates Group Medicare MEDICARE MEDICARE xxxxxxxxxxx 2011- PART A AND Present B Advance Directives Patient has advance care planning documents, and code status on file. For more information, please contact: [facility] [address] [place] [address] Date Inactivated Comments Code Status Date Activated 04/11/2017 4:57 PM Full Code 04/10/2017 5:31 PM Provider has discussed Code Status No, discussion not w/Patient or Family? necessary based on Dx
--- OUTSIDE RECORDS SUMMARY | 2018-09-09 13:52 | XMS REPORT | Encounter Summary ---
Author Author [facility] Organization [facility] Address Unknown Phone Unavailable Care Team Providers Care Filing Or Registry Clerk Name Role Phone Michael Sutton MD Unavailable Unavailable Mary Whittington MD PCP Jessica Valera Unavailable Maggie Puente Unavailable Unavailable Mary Telles APRN Unavailable Bam Ritter MD Unavailable Radha Bo LPN Unavailable Unavailable Jose Sanchez MD Unavailable Encounter Details Care Team Description Date Type Department Randy Nunez MD [address] [facility] [address] [place] [address] Chronic pancreatitis, unspecified pancreatitis type (HCC) ( Primary Dx); Nausea; Generalized abdominal pain 06/27/2018 Prep for Case [facility] [address] [place] [address] Social History Date Tobacco Use [...] alone Generalized abdominal pain Abdominal pain, generalized documented in this encounter
--- OUTSIDE RECORDS SUMMARY | 2018-09-09 13:52 | XMS REPORT | Encounter Summary ---
Author Author [facility] Organization [facility] Address Unknown Phone Unavailable Care Team Providers Care Podiatry Teacher Name Role Phone Michael Sutton MD Unavailable Unavailable Mary Whittington MD PCP Jessica Valera Unavailable Maggie Puente Unavailable Unavailable Mary Telles ANESTHESIOLOGY CRNA Unavailable Bam Ritter MD Unavailable Radha Bo [...] Description Date Type Department Hal Sparks MD [address] [facility] [address] [place] [address] Chronic pancreatitis, unspecified pancreatitis type (HCC) 08/22/2018 Hospital [facility] [address] [place] [address] Social History Date Tobacco Use Types Packs/Day Years Used Never Smoker Smokeless Tobacco: Never Used Alcohol Use Drinks/Week oz/Week Comments No Sex Assigned at Date Recorded Not on file Industry Job Start Date Occupation Not on file Not on file Not on file Travel End Travel History Travel Start No recent travel history available. documented as of this encounter Last Filed Vital Signs Time Taken Vital Sign Reading 08/22/2018 8:50 AM TREE SAPPER Blood Pressure 115/86 08/22/2018 8:54 AM TREE SAPPER Pulse 89 08/22/2018 8:30 AM TREE SAPPER Temperature 36.8 C (98.2 F) - Respiratory Rate - 08/22/2018 8:53 AM TREE SAPPER Oxygen Saturation 96% - Inhaled Oxygen - Concentration 08/22/2018 7:00 AM TREE SAPPER Weight 122.5 kg (270 lb) 08/22/2018 7:00 AM TREE SAPPER Height 157.5 cm (5' 2") 08/22/2018 7:00 AM TREE SAPPER Body Mass Index 49.38 documented in this encounter Functional Status Date of [...] impairment: Yes documented as of this encounter Discharge Instructions * Discharge Instr - Education* Mary Lechuga RN - 08/22/2018 8:46 AM TREE SAPPER EGD/Upper EUS/ERCP/Antegrade Enteroscopy Post Upper Endoscopy Instructions [...] After 5:00 pm, holidays or weekends call [phone] and ask for the GI Doctor adapted physical education aide. SAPPER documented in this encounter Medications at Time of [...] capsule capsule by mouth daily before breakfast. 04/09/2018 prochlorperazine maleate Take one-half 30 tablet 1 (COMPAZINE) 10 mg tablet tablet by mouth every 6 hours as needed for Nausea or Vomiting. rOPINIRole (REQUIP) 4 mg Take 4 mg by 0 tablet mouth at bedtime daily. 05/13/2018 sertraline (ZOLOFT) 50 mg Daily 0 tablet 09/02/2017 09/09/2018 ondansetron (ZOFRAN ODT) Dissolve 1 60 tablet 2 8 mg rapid dissolve tablet by tabletIndications: mouth twice Chronic nausea, Chronic daily. Place vomiting on tongue to disolve. documented as of this encounter H&P Notes * Joel Cantu MD - 08/22/2018 8:12 AM TREE SAPPER Pre Procedure History and Physical/Sedation Plan Name:Janeth [...] Relevant labs reviewed Joel Cantu MD Pager SAPPER documented in this encounter Plan of Treatment Not on filedocumented as of this encounter Procedures Comments Procedure Name Priority Date/Time Associated Diagnosis ESOPHAGOGASTRODUODENOSCOP 08/22/2018 Chronic pancreatitis, Y WITH ENDOSCOPIC 8:00 AM TREE SAPPER unspecified pancreatitis ULTRASOUND EXAMINATION - type (HCC) [...] aware she is scheduled w/Dr Cobian t [place] in basket to Mary / Rosanne to check to see which staff to schedule pt with 07/01/18 ()Per Arleen's cxd / change form - Please reschedule to [facility]ger or Laura & add EUS to already ordered EGD / Please call pt 06/30/18 @ 1:32 pm ()1st Call - Cld pt & scheduled appt 06/30/18 @ 9:05 am () ENDOSCOPIC ULTRASOUND 08/22/2018 REPORT 7:47 AM TREE SAPPER documented in this encounter Results * ENDOSCOPIC ULTRASOUND REPORT (08/22/2018 7:47 AM TREE SAPPER) Provation Patient Name: Regulo WILKS OTHER Report Procedure Date: 08/22/2018 7:47 RESULTS AM CSN: [id number] Date of : 1985 Gender: Female Attending Physician: Hal Sparks MD Procedure: Upper EUS Indications: Epigastric abdominal pain, Family h/o chronic pancreatitis, pancreas divisum Providers: Hal Sparks MD (Doctor), Lorenza Powers RN (Nurse), Ana Fuentes (Medical Engineer) Referring Physician: Randy Viveros MD Medications: Monitored [...] 55 seconds Procedure Code(s): --- Professional --- 85835, Esophagogastroduodenoscopy, flexible, transoral; with endoscopic ultrasound examination limited to the esophagus, stomach or duodenum, and adjacent structures CPT copyright 2017 [employer]. All rights reserved. The codes documented in this report are preliminary and upon ship engineer review may be revised to meet current compliance requirements. Attending Participation: I personally performed the entire procedure. Hal Sparks MD 08/22/2018 8:38:22 AM The attending physician has electronically signed and finalized this document. Number of Addenda: 0 Note Initiated On: 08/22/2018 7:47 AM Performing Organization Address City/State/Zipcode Phone Number [facility] OTHER RESULTS documented in this encounter Visit Diagnoses Not on filedocumented in this encounter Administered Medications Action Date Dose Rate Site Medication Order MAR Action 08/22/2018 7:26 AM TREE SAPPER 1,000 mL sodium chloride 0.9 % infusion Given - New 1,000 mL, Intravenous, CONTINUOUS, Bag Starting Sat08/22/18 at 0730, Until Sat08/22/18 at 1121, Pre-Op documented in this encounter
--- OUTSIDE RECORDS SUMMARY | 2018-09-09 13:52 | XMS REPORT | Encounter Summary ---
Author Author [facility] Organization [facility] Address Unknown Phone Unavailable Care Team Providers Care Harpoon Engagement Planning Operator Name Role Phone Michael Sutton MD Unavailable Unavailable Mary Whittington MD PCP Jessica Valera Unavailable Maggie Puente Unavailable Unavailable Mary Telles APRN Unavailable Bam Ritter MD Unavailable Radha Bo LPN Unavailable Unavailable Jose Sanchez MD Unavailable Encounter Details Care Team Description Date Type Department Melina Vargas Diarrhea, unspecified type 08/29/2018 Orders Only [facility] [address] [place] [address] Social History Date Tobacco Use [...] BY PCR Routine 08/26/2018 Diarrhea, unspecified type documented in this encounter Results * C DIFFICILE BY PCR (08/26/2018) Narrative Performed At Performing Organization Address City/State/Zipcode Phone Number OTHER OUTSIDE LAB documented in this encounter Visit Diagnoses Diagnosis Diarrhea, unspecified type documented in this encounter
--- OUTSIDE RECORDS SUMMARY | 2018-09-09 13:52 | XMS REPORT | Encounter Summary ---
Author Author [facility] Organization [facility] Address Unknown Phone Unavailable Care Team Providers Care Security Assistant Name Role Phone Michael Sutton MD Unavailable Unavailable Mary Whittington MD PCP Jessica Valera Unavailable Maggie Puente Unavailable Unavailable Mary Telles APRN Unavailable Bam Ritter MD Unavailable Radha Bo LPN Unavailable Unavailable Jose Sanchez MD Unavailable Reason for Visit * Reason Comments Medication Refill Encounter Details Care Team Description Date Type Department Randy Nunez MD [address] [facility] [address] [place] [address] Medication monitoring encounter 07/15/2018 Refill [facility] [address] [place] [address] Social History Date Tobacco Use [...]
--- OUTSIDE RECORDS SUMMARY | 2018-09-09 13:52 | XMS REPORT | Encounter Summary ---
Author Author [facility] Organization [facility] Address Unknown Phone Unavailable Care Team Providers Care Account Executive Healthcare Name Role Phone Michael Sutton MD Unavailable Unavailable Mary Whittington MD PCP Jessica Valera Unavailable Maggie Puente Unavailable Unavailable Mary Telles APRN Unavailable Bam Ritter MD Unavailable Radha Bo LPN Unavailable Unavailable Jose Sanchez MD Unavailable Reason for Visit * Reason Comments Medication Refill Encounter Details Care Team Description Date Type Department Jessica Valera ARNP [address] [facility] [address] [place] [address] Chronic nausea; Chronic vomiting 09/09/2018 Refill [facility] [address] [place] [address] Social History Date Tobacco Use [...] impairment: Yes documented as of this encounter Miscellaneous Notes * Telephone Encounter - Radha Bo LPN - 09/09/2018 1:17 PM CDT Refill request received for Ondansetron 8mg ODT Last OV 04/09/18 w/ Enrique Last fill 09/02/17 # 60 w/ [address] Nunez for approval/refusal. documented in this encounter Plan of Treatment Not on filedocumented as of this encounter Visit Diagnoses Diagnosis Chronic nausea Nausea alone Chronic vomiting Vomiting alone documented in this encounter
--- OUTSIDE RECORDS SUMMARY | 2018-09-09 13:52 | XMS REPORT | Encounter Summary ---
Author Author [facility] Organization [facility] Address Unknown Phone Unavailable Care Team Providers Care Material Handler 2Nd Shift Name Role Phone Michael Sutton MD Unavailable Unavailable Mary Whittington MD PCP Jessica Valera Unavailable Maggie Puente Unavailable Unavailable Mary Telles WASHING MACHINE OPERATOR Unavailable Bam Ritter MD Unavailable Radha Bo LPN Unavailable Unavailable Jose Sanchez MD Unavailable Reason for Visit * Auth/Cert Referred By Contact Referred To Contact Status Reason Specialty Diagnoses / Procedures Diagnoses Chronic pancreatitis, unspecified pancreatitis type (HCC) Nausea Generalized abdominal pain Chronic pancreatitis, unspecified pancreatitis type (HCC) [K86.1] Nausea [R11.0] Generalized abdominal pain [R10.84] P rocedures NV EGD TRANSORAL BIOPSY SINGLE/MULTIPLE NV EDG US EXAM SURGICAL ALTER STOM DUODENUM/JEJUNUM ESOPHAGOGASTRODUOD ENOSCOPY WITH BIOPSY - FLEXIBLE ESOPHAGOGASTRODUOD ENOSCOPY WITH ENDOSCOPIC ULTRASOUND EXAMINATION - FLEXIBLE Encounter Details Care Team Description Date Type Department Hal Sparks MD [address] Orth[facility] [address] [place] [address] ESOPHAGOGASTRODUODENOSCOPY WITH ENDOSCOPIC ULTRASOUND EXAMINATION - FLEXIBLE 08/22/2018 Surgery [facility] [address] [place] [address] Social History Date Tobacco Use [...] Taken Vital Sign Reading 08/22/2018 8:50 AM VOCATIONAL CHILDCARE TEACHER Blood Pressure 115/86 08/22/2018 8:54 AM VOCATIONAL CHILDCARE TEACHER Pulse 89 08/22/2018 8:30 AM VOCATIONAL CHILDCARE TEACHER Temperature 36.8 C (98.2 F) - Respiratory Rate - 08/22/2018 8:53 AM VOCATIONAL CHILDCARE TEACHER Oxygen Saturation 96% - Inhaled Oxygen - Concentration 08/22/2018 7:00 AM VOCATIONAL CHILDCARE TEACHER Weight 122.5 kg (270 lb) 08/22/2018 7:00 AM VOCATIONAL CHILDCARE TEACHER Height 157.5 cm (5' 2") 08/22/2018 7:00 AM VOCATIONAL CHILDCARE TEACHER Body Mass Index 49.38 documented in this [...] Mary Lechuga RN - 08/22/2018 8:46 AM VOCATIONAL CHILDCARE TEACHER EGD/Upper EUS/ERCP/Antegrade Enteroscopy Post Upper Endoscopy Instructions [...] After 5:00 pm, holidays or weekends call [phone] and ask for the GI Doctor marine consultant. TIONAL CHILDCARE TEACHER documented in this encounter Medications at Time [...] Joel Cantu MD - 08/22/2018 8:12 AM VOCATIONAL CHILDCARE TEACHER Pre Procedure History and Physical/Sedation Plan Name:Janeth [...] Relevant labs reviewed Joel Cantu MD Pager TIONAL CHILDCARE TEACHER documented in this encounter Plan of Treatment Not on filedocumented as of this encounter Procedures Comments Procedure Name Priority Date/Time Associated Diagnosis ESOPHAGOGASTRODUODENOSCOP 08/22/2018 Chronic pancreatitis, Y WITH ENDOSCOPIC 8:00 AM VOCATIONAL CHILDCARE TEACHER unspecified pancreatitis ULTRASOUND EXAMINATION - type (HCC) [...] change form - Please reschedule to [facility] Sanchez & add EUS to already ordered EGD / Please call pt 06/30/18 @ 1:32 pm ()1st Call - Cld pt & scheduled appt 06/30/18 @ 9:05 am () ENDOSCOPIC ULTRASOUND 08/22/2018 REPORT 7:47 AM VOCATIONAL CHILDCARE TEACHER documented in this encounter Results * ENDOSCOPIC ULTRASOUND REPORT (08/22/2018 7:47 AM VOCATIONAL CHILDCARE TEACHER) Provation Patient Name: Regulo WILKS OTHER Report Procedure Date: 08/22/2018 7:47 RESULTS AM CSN: [id number] Date of : 1985 Gender: Female Attending Physician: Hal Sparks MD Procedure: Upper EUS Indications: Epigastric abdominal pain, Family h/o chronic pancreatitis, pancreas divisum Providers: Hal Sparks MD (Doctor), Lorenza Powers RN (Nurse), Ana Fuentes (Bridge/Structure Inspection Team Leader) Referring Physician: Randy Viveros MD Medications: Monitored [...] 55 seconds Procedure Code(s): --- Professional --- 27529, Esophagogastroduodenoscopy, flexible, transoral; with endoscopic ultrasound examination limited to the esophagus, stomach or duodenum, and adjacent structures CPT copyright 2017 [employer]. All rights reserved. The codes documented in this report are preliminary and upon inspector grain mill products review may be revised to meet current compliance requirements. Attending Participation: I personally performed the entire procedure. Hal Sparks MD 08/22/2018 8:38:22 AM The attending physician has electronically signed and finalized this document. Number of Addenda: 0 Note Initiated On: 08/22/2018 7:47 AM Performing Organization Address City/State/Zipcode Phone Number [facility] OTHER RESULTS documented in this encounter Visit Diagnoses Diagnosis Chronic pancreatitis, unspecified pancreatitis type (HCC) Nausea Nausea alone Generalized abdominal pain Abdominal pain, generalized documented in this encounter Administered Medications Action Date Dose Rate Site Medication Order MAR Action 08/22/2018 7:26 AM VOCATIONAL CHILDCARE TEACHER 1,000 mL sodium chloride 0.9 % infusion Given - New 1,000 mL, Intravenous, CONTINUOUS, Bag Starting Sat08/22/18 at 0730, Until Sat08/22/18 at 1121, Pre-Op documented in this encounter
--- OUTSIDE RECORDS SUMMARY | 2018-09-09 13:52 | XMS REPORT | Encounter Summary ---
Author Author [facility] Organization [facility] Address Unknown Phone Unavailable Care Team Providers Care Glass Frame Fitter Name Role Phone Michael Sutton MD Unavailable Unavailable Mary Whittington MD PCP Jessica Valera Unavailable Maggie Puente Unavailable Unavailable Mary Telles FRENCH CORD BINDER Unavailable Bam Ritter MD Unavailable Radha Bo LPN Unavailable Unavailable Jose Sanchez MD Unavailable Reason for Visit * Auth/Cert Referred By Contact Referred To Contact Status Reason Specialty Diagnoses / Procedures Diagnoses Chronic pancreatitis, unspecified pancreatitis type (HCC) Nausea Generalized abdominal pain Chronic pancreatitis, unspecified pancreatitis type (HCC) [K86.1] Nausea [R11.0] Generalized abdominal pain [R10.84] P rocedures VT EGD TRANSORAL BIOPSY SINGLE/MULTIPLE VT EDG US EXAM SURGICAL ALTER STOM DUODENUM/JEJUNUM ESOPHAGOGASTRODUOD ENOSCOPY WITH BIOPSY - FLEXIBLE ESOPHAGOGASTRODUOD ENOSCOPY WITH ENDOSCOPIC ULTRASOUND EXAMINATION - FLEXIBLE Encounter Details Care Team Description Date Type Department Ekaterina Chairez CRNA [id number] [place], [place] [id number] 08/22/2018 Anesthesia [facility] [address] [place] [address] Anesthesia Record Responsible Anesthesiologist Anesthesia [...] No; N/A; 2; 08/22/18; 0857 TIMUR Hernandez documented in this encounter Social History Date Tobacco [...] impairment: Yes documented as of this encounter OR Notes * Anesthesia Postprocedure Evaluation - Janice Dickerson MD - 08/22/2018 8:52 AM NETWORK SOLUTIONS ARCHITECT Post-Anesthesia Evaluation Name: Janeth Rajput : 1985 Age: 33 y.o. Sex: female Procedure Date: 08/22/2018 Procedure: Procedure(s): ESOPHAGOGASTRODUODENOSCOPY WITH ENDOSCOPIC ULTRASOUND EXAMINATION - FLEXIBLE Surgeon: Surgeon(s): Joel Cantu MD Rastogi, Amit, MD Post-Anesthesia Vitals BP: 94/65 (08/23 839) Temp: 36.8 C (98.2 F) (08/22 829) Pulse: 94 (08/23 839) Respirations: 18 PER MINUTE (08/23 839) SpO2: 93 % (08/23 839) SpO2 Pulse: 92 (08/23 839) Post Anesthesia Evaluation Note Evaluation location: Pre/Post Patient participation: recovered; patient participated in evaluation Level of consciousness: alert Pain management: adequate Hydration: normovolemia Airway patency: adequate Perioperative Events Perioperative events: no Post-op nausea and vomiting: no PONV Postoperative Status Cardiovascular status: hemodynamically stable Respiratory status: spontaneous ventilation Follow-up needed: none Perioperative Events Perioperative Event: No Emergency Case Activation: No [employer]K SOLUTIONS ARCHITECT * Anesthesia Preprocedure Evaluation - Nuzhat Rudolph CRNA - 08/22/2018 7:04 AM NETWORK SOLUTIONS ARCHITECT Anesthesia Pre-Procedure Evaluation Name: Janeth Rajput : 1985 Age: 33 y.o. Sex: female Procedure Date: 08/22/2018 Procedure: Procedure(s): ESOPHAGOGASTRODUODENOSCOPY WITH BIOPSY - FLEXIBLE ESOPHAGOGASTRODUODENOSCOPY WITH ENDOSCOPIC ULTRASOUND EXAMINATION - FLEXIBLE Physical Assessment Vital Signs (last filed in past 24 hours): BP: 134/91 (08/22 699) Temp: 36.8 C (98.2 F) (08/22 699) Pulse: 89 (08/22 699) Respirations: 18 PER MINUTE (08/22 699) SpO2: 97 % (08/22 699) O2 Delivery: None (Room Air) (08/22 699) Height: 157.5 cm (62") (08/22 699) Weight: 122.5 kg (270 lb) (08/22 699) Patient History Allergies Allergen Reactions Penicillins UNKNOWN Demerol (Pf) [Meperidine (Pf)] ITCHING Fentanyl ITCHING Vancomycin ITCHING and REDNESS Current Medications Medication Directions acetaminophen (TYLENOL) 500 mg tablet Take 1,000 mg by mouth every 6 hours as needed for Pain (patient does not take more than four per day). Max of 4,000 mg of acetaminophen in 24 hours. cyanocobalamin (VITAMIN B-12, RUBRAMIN) 1,000 mcg/mL injection INJECT 1 ML INTRAMUSCULARLY EVERY 30 DAYS. cyclobenzaprine (FLEXERIL) 10 mg tablet Every 8HRS diphenhydrAMINE (BENADRYL ALLERGY) 25 mg tablet Take 50 mg by mouth every 6 hours as needed. estradiol (ESTRACE) 2 mg tablet Take 3 mg by mouth at bedtime daily. gabapentin (NEURONTIN) 100 mg capsule Take 100 mg by mouth every 8 hours. HYDROcodone/acetaminophen (NORCO) 7.5/325 mg tablet Take 1 tablet by mouth every 6 hours as needed for Pain Indications: PAIN omeprazole DR(+) (PRILOSEC) 40 mg capsule Take [...] 4 mg by mouth at bedtime daily. sertraline (ZOLOFT) 50 mg tablet Daily Review of Systems/Medical History Patient summary reviewed Nursing notes reviewed Pertinent labs reviewed PONV Screening: Female gender and Non-smoker No history of anesthetic complications (pt requests IV zofran and benadryl pre- op as it has helped in the past ) No family history of anesthetic complications Airway Short neck, large neck circumference Pulmonary Asthma (mild asthma, does not use inhaler, occasional nebulizer use) Loud snoring; Patient reports sleep study ~ 2 years ago which was negative for sleep apnea Cardiovascular Exercise tolerance: >4 METS DVT (from PICC line, resolved) GI/Hepatic/Renal GERD, well controlled Renal disease (renal CA, s/p left nephrectomy 2015): prior nephrectomy Nausea Vomiting Incisional hernia repair [...] neck Dental Findings: Negative Cardiovascular Findings: Negative Rhythm: regular Rate: normal Pulmonary Findings: Negative Breath sounds clear to auscultation. Abdominal Findings: Obese Diagnostic Tests Hematology: Lab [...] Chemistry: Lab Results Component Value Date NA 136 05/19/2018 K 3.8 05/19/2018 CL 104 05/19/2018 CO2 27 05/19/2018 GAP 5 05/19/2018 BUN 15 05/19/2018 CR 0.8 05/19/2018 CR 0.78 05/19/2018 GLU 95 05/19/2018 CA 9.0 05/19/2018 ALBUMIN 3.8 06/03/2017 TOTBILI 0.4 06/03/2017 Coagulation: No results found for: PT, PTT, INR Anesthesia Plan ASA score: 3 Plan: MAC Induction method: intravenous NPO status: acceptable Informed Consent Anesthetic plan and risks discussed with patient. Use of blood products discussed with patient Blood Consent: consented Plan discussed with: anesthesiologist and FULL CHARGE BOOKKEEPER. Comments: (Pt reports fentanyl and demerol allergy, says they cause itching and hallucinations. Reports she received benadryl for her last procedure and received fentanyl and had no adverse outcomes.) ORK SOLUTIONS ARCHITECT documented in this encounter Plan of Treatment Not on filedocumented as of this encounter Visit Diagnoses Not on filedocumented in this encounter Administered Medications Action Date Dose Rate Site Medication Order MAR Action 08/22/2018 8:18 AM NETWORK SOLUTIONS ARCHITECT 120 mg lidocaine (PF) injection Given INTRA-PROCEDURE MED, Starting Sat08/22/18 at 0818, Until Sat08/22/18 at 0834, Anesthesia Intra-op 08/22/2018 8:18 AM NETWORK SOLUTIONS ARCHITECT 4 mg ondansetron (ZOFRAN) injection Given INTRA-PROCEDURE MED, Starting Sat08/22/18 at 0818, Until Sat08/22/18 at 0834, Anesthesia Intra-op 08/22/2018 8:24 AM NETWORK SOLUTIONS ARCHITECT 140 mcg/kg/min 102.9 mL/hr propofol (DIPRIVAN) infusion Dose/Rate 50 mL, Intravenous, INTRA-PROCEDURE Change MED(CONT), Starting Sat08/22/18 at 0819, Until Sat08/22/18 at 08, Anesthesia Intra-op 130 mcg/kg/min 95.6 mL/hr Dose/Rate Change 08/22/2018 8:22 AM NETWORK SOLUTIONS ARCHITECT 120 mcg/kg/min 88.2 mL/hr Given - New Bag 08/22/2018 8:19 AM NETWORK SOLUTIONS ARCHITECT 08/22/2018 8:26 AM NETWORK SOLUTIONS ARCHITECT 10 mg propofol (DIPRIVAN) injection Given INTRA-PROCEDURE MED, Starting Sat08/22/18 at 0819, Until Sat08/22/18 at 0834, Anesthesia Intra-op 20 mg Given 08/22/2018 8:25 AM NETWORK SOLUTIONS ARCHITECT 20 mg Given 08/22/2018 8:23 AM NETWORK SOLUTIONS ARCHITECT documented in this encounter
--- OUTSIDE RECORDS SUMMARY | 2018-09-09 13:53 | XMS REPORT ---
Author Author Migration, Doctor Organization [facility] Address Unknown Phone Unavailable Care Team Providers Care Bilingual Teacher Name Role Phone Migration, Doctor Unavailable Unavailable PROBLEMS Type Condition ICD9-CM Code JBS08-GK Code Onset Dates Condition Status SNOMED Code Problem Right carpal tunnel syndrome G56.01 Active 919356470248030 Problem History of renal cell carcinoma Z85.528 Active 566545524 Problem Morbid (severe) obesity due to excess calories E66.01 Active 496833326 Problem Chronic tension-type headache, intractable G44.221 Active 722120013 Problem Hirsuties L68.0 Active 506881443 Problem Hyperlipidemia, mixed E78.2 Active 532654658 Problem Chronic pancreatitis K86.1 Active 868074784 Problem FH: polycystic ovary Z84.2 Active 085428654 Problem Atelectasis J98.11 Active 03548325 Problem Trichotillomania F63.3 Active 58302613 Problem Restless leg syndrome G25.81 Active 13913262 Problem Intestinal malabsorption, unspecified K90.9 Active 03788496 Problem Polydipsia R63.1 Active 18546380 Problem Primary osteoarthritis of right knee M17.11 Active 721392360557113 Problem Asthma J45.909 Active 576373745 Problem Nodule of left lung R91.1 Active 010233272 Problem Generalized social phobia F40.11 Active 55835934 Problem Chronic post-traumatic stress disorder (PTSD) F43.12 Active 778994790 Problem Moderate episode of recurrent major depressive disorder F33.1 Active 716793716 Problem Chronic fatigue R53.82 Active 88228459 ALLERGIES No Information ENCOUNTERS Encounter Location Date Diagnosis [facility] [address] [facility] [id number] [address] Aug, [address] [address] Jul, [facility] [address] [id number] [address] Jul, [facility] [id number] [place] [address] 12485- 2499 Jul, [facility] [id number] [place] [address] 19962- 4486 Jul, Numbness of right hand R20.0 [facility] [id number] [place] [address] 12252- 7003 Jul, [facility] [id number] [place] [address] 02670- 8866 Jul, Numbness of right hand R20.0 [facility] [id number] [place] [address] 38641- 5882 Jul, [facility] [id number] [place] [address] 94729- 1359 Jul, [facility] [id number] [place] [address] 03595- 9892 Jul, Right-sided thoracic back pain M54.6 [facility] [id number] [place] [address] 35608- 7767 Jul, [facility] [id number] [place] [address] 27528- 1544 Jul, [facility] [id number] [place] [address] 36643- 5251 Jul, [facility] [id number] [place] [address] 94642- 1557 Jul, [facility] [id number] [place] [address] 97154- 7440 Jun, [facility] [id number] [place] [address] 36552- 1954 Jun, Acute pain of right shoulder M25.511 ; Numbness of right hand R20.0 and Trapezius muscle spasm M62.838 [facility] [id number] [place] [address] 60181- 6977 Jun, [facility] [id number] [place] [address] 66159- 6609 Jun, [facility] [id number] [place] [address] 31418- 8015 Jun, Cough R05 ; BMI 50.0-59.9, adult Z68.43 and Morbid obesity E66.01 [facility] [address] [address]61- 2880 Jun, [facility] [address] 34253- 9615 Jun, [facility] [id number] [place] [address] 52055 -4865 Jun, BMI 45.0-49.9, adult Z68.42 and Acute non-recurrent maxillary sinusitis J01.00 [facility] [id number] [place] [address] 88425 -3659 Jun, Acute sinusitis J01.90 ; Dysuria R30.0 and BMI 45.0-49.9, adult Z68.42 [facility] [id number] [place] [address] 94236- 4824 Jun, [facility] [id number] [place] [address] 48425- 7120 Jun, [facility] [id number] [place] [address] 81867- 0991 May, [facility] [id number] [place] [address] 16745- 7189 May, [facility] [id number] [place] [address] 30762- 6500 May, [facility] [id number] [place] [address] 42310- 5845 May, [facility] [address] [place] [address] 6170 May, [place] [id number] [place] [address] 89726- 2642 Apr, Generalized social phobia F40.11 ; Trichotillomania F63.3 ; Chronic post-traumatic stress disorder (PTSD) F43.12 and BMI 45.0-49.9, adult Z68.42 [place] [address] 76271- 4263 Apr, [place] [address] 53015- 1537 Apr, Chronic tension-type headache, intractable G44.221 [place] [address] 55715- 3181 Apr, [facility] [address] 93194 -3591 Mar, [facility] [address] 86522 -9647 Mar, BMI 45.0-49.9, adult Z68.42 and Pimples R23.8 [place] [id number] [place] [address] 68834- 4331 Mar, [place] [id number] [place] [address] 23924- 0849 Mar, [place] [id number] [place] [address] 97218- 6721 Mar, Decreased urination R34 ; Chronic fatigue R53.82 ; Peripheral edema R60.9 ; Diarrhea, unspecified type R19.7 ; Non-intractable vomiting with nausea, unspecified vomiting type R11.2 ; BMI 45.0-49.9, adult Z68.42 and Chronic post-traumatic stress disorder (PTSD) F43.12 [place] [id number] [place] [address] 74471- 3033 Mar, Intestinal malabsorption, unspecified K90.9 ; Diarrhea, unspecified R19.7 ; Urinary urgency R39.15 ; Rectal bleeding K62.5 and Decreased urine output R34 [place] [address] 61647- 2761 Mar, Decreased urine output R34 [facility] [id number] [place] [address] 67893- 4038 Mar, Rectal bleeding K62.5 [facility] [address] 90802- 6206 Mar, Rectal bleeding K62.5 [place] [id number] [place] [address] 34838- 4772 Mar, Urinary urgency R39.15 [place] [id number] [place] [address] 23115- 9186 Mar, Urinary urgency R39.15 [place] [address] 93428- 2602 Mar, Primary osteoarthritis of right knee M17.11 and BMI 45.0- 49.9, adult Z68.42 [place] [address] 34845- 3465 Mar, [place] [id number] [place] [address] 89451- 2512 Feb, Left upper arm pain M79.622 [place] [id number] [place] [address] 50344- 6794 Feb, [place] [id number] [place] [address] 99454- 9629 Jan, Acute pain of right knee M25.561 ; Right upper quadrant abdominal pain R10.11 and BMI 45.0-49.9, adult Z68.42 [place] [id number] [place] [address] 38822- 6985 Jan, [facility] [address] 05195- 0701 Jan, [facility] [address] [address] 8197 Dec, [facility] [id number] [place] [address] 67496- 8687 Dec, Intestinal malabsorption, unspecified K90.9 and Diarrhea, unspecified R19.7 [facility] [id number] [place] [address] 83727- 6642 Dec, [facility] [id number] [place] [address] 77743- 3330 Dec, Strep throat J02.0 ; Intestinal malabsorption, unspecified K90.9 ; Diarrhea, unspecified R19.7 ; Postoperative seroma involving digestive system after non-digestive system procedure K91.873 ; Hyperlipidemia, mixed E78.2 and BMI 45.0-49.9, adult Z68.42 [facility] [address] [place] [address] 36158- 8981 Dec, [facility] [address] [place] [address] 95172- 2481 Dec, Nausea R11.0 [facility] [id number] [place] [address] 45542- 4202 Dec, [facility] [address] [address]69 Dec, Sore throat J02.9 ; Strep throat J02.0 and BMI 45.0-49.9, adult Z68.42 [facility] [address] [address]- 2552 Dec, [facility] [id number] [place] [address] 48945- 8750 Dec, [facility] [address] [address]- 9123 Dec, [facility] [id number] [address]- 6685 Dec, [facility] [id number] [place] [address] 12558- 8339 Dec, [facility] [id number] [place] [address] 02536- 7887 Dec, [facility] [id number] [place] [address] 15541- 4353 Dec, [facility] [id number] [place] [address] 55768- 8109 Dec, [facility] [id number] [place] [address] 33915- 5688 Dec, Clostridium difficile colitis A04.72 ; Intractable vomiting with nausea, unspecified vomiting type R11.2 and BMI 45.0-49.9, adult Z68.42 [facility] [id number] [place] [address] 32160- 7698 Dec, [facility] [id number] [place] [address] 89226- 0718 Nov, [facility] [id number] [place] [address] 88603- 1388 Nov, [facility] [id number] [place] [address] 22083- 6058 Nov, [facility] [id number] [place] [address] 29579- 6270 Nov, [facility] [id number] [place] [address] 56107 -9297 Nov, [facility] [id number] [place] [address] 41199- 6565 Nov, Hyperlipidemia, mixed E78.2 [facility] [address] [address] Nov, Acute suppurative otitis media of right ear without spontaneous rupture of tympanic membrane, recurrence not specified H66.001 and BMI 45.0-49.9, adult Z68.42 [place] [address] [address]- 1604 Nov, Hyperlipidemia, mixed E78.2 [place] [address] [place] [address] 63213- 3764 Nov, [place] [id number] [place] [address] 37946- 2450 Nov, [place] [id number] [place] [address] 18836- 3340 Nov, Nodule of left lung R91.1 [place] [id number] [place] [address] 22576- 5050 Nov, Medicare annual wellness visit, initial Z00.00 [...] adult Z68.42 and Encounter for immunization Z23 [place] [address] [address]- 7761 October, [place] [address] [place] [address] 40005- 3311 October, Nodule of left lung R91.1 [place] [address] [address]- 0980 October, Nodule of left lung R91.1 [place] [address] [place] [address] 71011- 9074 October, Recurrent major depressive disorder, in partial remission F33.41 ; Restless leg syndrome G25.81 ; Generalized social phobia F40.11 ; Chronic post-traumatic stress disorder (PTSD) F43.12 ; BMI 45.0-49.9, adult Z68.42 and Trichotillomania F63.3 [facility] [address] 95585- 6323 October, [facility] [id number] [place] [address] 19008- 9997 Sep, Chronic fatigue R53.82 and BMI 45.0-49.9, adult Z68.42 [facility] [id number] [place] [address] 76308- 8911 Aug, [place] [address] 86980- 2688 Jul, Restless leg syndrome G25.81 and B12 deficiency E53.8 [place] [address] 29400- 9430 Jul, [place] [address] 82967- 6829 Jul, [facility] [id number] [place] [address] 46691- 1263 Jun, [place] [id number] [place] [address] 40893- 5172 Jun, Fatigue, unspecified type R53.83 ; History of renal cell carcinoma Z85.528 ; Chronic pancreatitis K86.1 ; Restless leg syndrome G25.81 ; Dark urine R82.99 and BMI 45.0-49.9, adult Z68.42 [facility] [id number] [place] [address] 23633- 5439 Jun, [facility] [address] 40758- 8447 Jun, [facility] [id number] [place] [address] 89637- 9763 Jun, [facility] [address] 92013- 9435 Jun, [place] [address] [address]- 5026 May, Chronic post-traumatic stress disorder (PTSD) F43.12 ; Moderate episode of recurrent major depressive disorder F33.1 ; Trichotillomania F63.3 and Generalized social phobia F40.11 [place] [id number] [place] [address] 20138- 1912 May, [place] [id number] [place] [address] 01490- 4396 May, Chronic post-traumatic stress disorder (PTSD) F43.12 ; Moderate episode of recurrent major depressive disorder F33.1 ; Trichotillomania F63.3 and Generalized social phobia F40.11 [place] [address] [address]- 5869 May, Hyperlipidemia, mixed E78.2 ; Morbid (severe) obesity due to excess calories E66.01 ; Chronic post-traumatic stress disorder (PTSD) F43.12 ; Moderate episode of recurrent major depressive disorder F33.1 ; Trichotillomania F63.3 and Generalized social phobia F40.11 [place] [address] [address]- 6390 Apr, [place] [id number] [place] [address] 45178- 7157 Apr, Hyperlipidemia, mixed E78.2 ; Morbid (severe) obesity due to excess calories E66.01 ; Chronic post-traumatic stress disorder (PTSD) F43.12 ; Moderate episode of recurrent major depressive disorder F33.1 ; Trichotillomania F63.3 and Generalized social phobia F40.11 [place] [address] [place] [address] 77729- 7037 Apr, Trichotillomania F63.3 ; Generalized social phobia F40.11 ; Chronic post-traumatic stress disorder (PTSD) F43.12 and Moderate episode of recurrent major depressive disorder F33.1 [facility] [id number] [place] [address] 87137- 9981 Apr, [facility] [address] 70266- 4580 Apr, [facility] [id number] [place] [address] 25881- 5961 Mar, Moderate episode of recurrent major depressive disorder F33.1 ; Trichotillomania F63.3 ; Chronic post-traumatic stress disorder (PTSD) F43.12 ; Generalized social phobia F40.11 and Restless leg syndrome G25.81 [facility] [address] 91632- 7960 Mar, [facility] [id number] [place] [address] 74296- 6436 Mar, [facility] [address] 73171- 0907 Feb, Left kidney mass N28.89 [facility] [id number] [place] [address] 42965- 5675 Jan, [facility] [id number] [place] [address] 19575- 0800 Dec, Polydipsia R63.1 ; Chronic pancreatitis K86.1 and Fatigue, unspecified type R53.83 [facility] [id number] [place] [address] 44421- 4252 Nov, [facility] [id number] [place] [address] 85180- 3290 Nov, [facility] [id number] [place] [address] 16467- 5470 Nov, Headache around the eyes R51 [facility] [id number] [place] [address] 76782- 5147 Nov, [facility] [id number] [place] [address] 64623- 9977 October, STD exposure Z20.2 [facility] [address] [address]- 5433 October, STD exposure Z20.2 [facility] [id number] [place] [address] 43606- 5937 October, Chronic post-traumatic stress disorder (PTSD) F43.12 ; Generalized social phobia F40.11 ; Trichotillomania F63.3 and Restless leg syndrome G25.81 [facility] [address] [place] [address] 32739- 6003 October, [place] [id number] [place] [address] 40012- 7810 Sep, [place] [id number] [place] [address] 01019- 5991 Aug, [place] [id number] [place] [address] 50654- 7133 Aug, [facility] [id number] [place] [address] 82464- 3826 Aug, Neck mass R22.1 [place] [id number] [place] [address] 76151- 4059 Aug, Atelectasis J98.11 [place] [id number] [place] [address] 96113- 9509 Jul, Hyperlipidemia, mixed E78.2 ; Atypical pneumonia J18.9 and Neck mass R22.1 [place] [id number] [place] [address] 96094- 2525 15 Jul, 2016 Hemoptysis R04.2 [place] [id number] [place] [address] 20819- 3579 08 Jul, 2016 Acute non-recurrent pansinusitis J01.40 ; Hemoptysis R04.2 ; Polydipsia R63.1 and Malaise R53.81 [facility] [place] [id number] [place] [address] 27320 -8106 May, Other viral agents as the cause of diseases classified elsewhere B97.89 and Acute upper respiratory infection, unspecified J06.9 [facility] [place] [id number] [place] [address] 48333 -2313 Mar, Nausea R11.0 [facility] [place] [id number] [place] [address] 37614 -5245 Dec, Hives L50.9 [place] [id number] [place] [address] 40614- 4147 Dec, [facility] [place] [id number] [place] [address] 01624 -5152 Dec, Cutaneous abscess of limb, unspecified L02.419 ; Cellulitis of unspecified part of limb L03.119 ; Encounter for incision and drainage procedure Z01.89 and Encounter for recheck of abscess following incision and drainage Z09 [facility] [address] [place] [address] 85824 -0800 Dec, Abscess of leg, right L02.415 [place] [id number] [place] [address] 42315- 6458 Dec, Cellulitis of unspecified part of limb L03.119 and Cutaneous abscess of limb, unspecified L02.419 [place] [id number] [place] [address] 98623- 6829 Dec, [place] [id number] [place] [address] 85865- 4511 Dec, [facility] [place] [id number] [place] [address] 27084 -1330 Aug, [place] [id number] [place] [address] 59499- 0619 Aug, [facility] [place] [id number] [place] [address] 76827 -0853 Jul, Pain in unspecified wrist M25.539 and Back pain, thoracic M54.6 [facility] [id number] [place] [address] 19627 -7257 Jun, Strain of right wrist, initial encounter S66.911A [facility] [id number] [place] [address] 13493- 6038 Jun, Chronic pancreatitis, unspecified pancreatitis type K86.1 ; Hirsuties L68.0 ; Morbid (severe) obesity due to excess calories E66.01 ; Chronic pancreatitis K86.1 and Asthma J45.909 [facility] [id number] [place] [address] 24557- 0320 May, [facility] [id number] [place] [address] 50185- 0859 May, Hyperlipidemia, mixed E78.2 and Muscle spasm of back M62.830 [facility] [id number] [place] [address] 58460- 6912 Apr, [facility] [id number] [place] [address] 21543- 1290 Apr, Torticollis M43.6 [facility] [id number] [place] [address] 59138- 8864 Apr, Right-sided thoracic back pain M54.6 [facility] [id number] [place] [address] 95213- 6364 Mar, Rash R21 [facility] [id number] [place] [address] 27723- 4678 Mar, [facility] [id number] [place] [address] [phone]- 8205 Jan, [facility] [id number] [place] [address] 62885- 7153 Dec, [facility] [address] [address]- [address]40 Dec, Urinary frequency 788.41 and Nocturia more than twice per night 788.43 [facility] [id number] [address] Nov, [facility] [id number] [place] [address] 39966- 6756 Nov, [facility] [id number] [place] [address] 95765- 5940 Nov, Abdominal pain 789.00 [facility] [id number] [place] [address] 17760- 2957 October, TDAP DX V06.1 [facility] [id number] [place] [address] 15194- 5601 October, [facility] [id number] [place] [address] 28400- 0456 October, Disturbance of skin sensation 782.0 ; Wrist pain, right 719.43 ; Hyperlipidemia 272.4 and Skin lesion of face 709.9 [facility] [id number] [place] [address] 40288- 5235 Sep, [facility] [id number] [place] [address] 49437- 1572 Sep, [facility] [id number] [place] [address] 57481- 0820 Aug, [facility] [id number] [place] [address] 08630- 1196 Aug, [facility] [facility] [id number] [place] [address]- 2846 Aug, [facility] [id number] [place] [address]23- 7595 Aug, [facility] [address] [id number] 2947 Aug, [facility] [id number] [place] [address] 22929- 9262 16 Aug, 2014 [facility] [place] [facility] [address] [id number] [place] [address]- 0252 14 Aug, 2014 [facility] [place] [facility] [address] [id number] [place] [address] 14 Aug, 2014 [facility] [place] [facility] [address] [id number] [place] [address]- 3635 Aug, [facility] [place] [facility] [address] [id number] [place] [address]- 6005 Aug, [facility] [place] [facility] [address] [id number] [place] [address]- 0844 Aug, [facility] [place] [facility] [address] [id number] [place] [address]- 9726 Aug, [facility] [place] [facility] [address] [facility] [id number] [place] [address]- 6461 Aug, [facility] [place] [facility] [address] [id number] [place] [address]- 8623 Aug, [facility] [place] [facility] [address] [id number] [place] [address]- 9997 Jul, [facility] [place] [facility] [address] [facility] [id number] [place] [address]- 7314 Jul, [facility] [place] [facility] [address] [id number] [place] [address]- 7156 Jul, 2014 [facility] [place] [facility] [address] [id number] [place] [address]- 3971 Jul, [facility] [place] [facility] [address] [id number] [place] [address]- 8447 Jul, [facility] [place] [facility] [address] [id number] [place] [address] Jul, [facility] [place] [facility] [address] [id number] [address]- 8398 Jun, [facility] [place] [facility] [address] [id number] [place] [address]- 2369 Jun, [facility] [place] [facility] [address] [id number] [place] [address]- 7752 Jun, [facility] [place] [facility] [address] [id number] [place] [address]- 8683 Jun, [facility] [place] [facility] [address] [id number] [place] [address]- 6212 Jun, [facility] [place] [facility] [address] [id number] [place] [address]- 4426 Jun, [facility] [place] [facility] [address] [id number] [place] [address]- 6014 Jun, [facility] [place] [facility] [address] [id number] [place] [address]- 6867 Jun, [facility] [place] [facility] [address] [id number] [place] [address]- 1255 May, [facility] [place] [facility] [address] [id number] [place] [address]- 6937 19 May, 2014 [facility] [place] [facility] [address] [id number] [place] [address]- 9320 18 May, 2014 [facility] [place] [facility] [address] [id number] [place] [address]- 2814 18 May, 2014 [facility] [place] [facility] [address] [id number] [place] [address]- 9269 15 May, 2014 [facility] [place] [facility] [address] [id number] [place] [address]- 8457 15 May, 2014 [facility] [place] [facility] [address] [id number] [place] [address]- 4155 11 May, 2014 [facility] [place] [facility] [address] [id number] [place] [address]- 7798 11 May, 2014 [facility] [place] [facility] [address] [id number] [address]- 6279 May, [facility] [place] [facility] [address] [id number] [place] [address]- 5237 May, [facility] [place] [facility] [address] [id number] [place] 0123 May, [facility] [place] [facility] [address] [id number] [place] [address]- 7713 May, [facility] [place] [facility] [address] [id number] [place] [address]- 8611 Apr, [facility] [place] [facility] [address] [id number] [place] [address]- 7165 Apr, [facility] [place] [facility] [address] [id number] [place] [address]- 1029 Apr, [facility] [place] [facility] [address] [id number] [place] [address]- 8722 Apr, [facility] [place] [facility] [address] [id number] [place] [address]- 8429 Apr, [facility] [place] [facility] [address] [id number] [place] [address]- 2811 Apr, [facility] [place] [facility] [address] [id number] [place] [address]- 8613 Apr, [facility] [place] [facility] [address] [id number] [place] [address]- 6429 Apr, [facility] [place] [facility] [address] [id number] [place] [address]- 1684 Apr, [facility] [place] [facility] [address] [id number] [place] [address]- 3811 Apr, [facility] [place] [facility] [address] [id number] [place] [address]- 7487 Apr, [facility] [place] [facility] [address] [id number] [place] [address]- 7743 Apr, [facility] [place] [facility] [address] [id number] [place] [address]- 5151 14 Mar, 2014 [facility] [place] [facility] [address] [id number] [place] [address]- 3933 14 Mar, 2014 [facility] [place] [facility] [address] [id number] [place] [address]- 0980 Mar, [facility] [place] [facility] [address] [id number] [place] [address]- 3603 Mar, [facility] [place] [facility] [address] [id number] [place] [address]- 2094 10 Feb, 2013 [facility] [place] [facility] [address] [id number] [place] [address]- 0450 10 Feb, 2014 [facility] [place] [facility] [address] [id number] [place] [address]- 1430 05 Feb, 2013 [facility] [place] [facility] [address] [id number] [place] [address]- 2996 05 Feb, 2013 [facility] [place] [facility] [address] [id number] [place] [address]- 4476 05 Feb, 2014 [facility] [place] [facility] [address] [id number] [place] [address]- 9795 Feb, [facility] [place] [facility] [address] [id number] [place] [address]- 4850 Jan, [facility] [place] [facility] [address] [id number] [place] [address]- 4275 Jan, [facility] [place] [facility] [address] [id number] [place] [address]- 5046 Jan, [facility] [place] [facility] [address] [id number] [place] [address]- 6458 Jan, [facility] [place] [facility] [address] [id number] [place] [address]- 0246 Jan, [facility] [place] [facility] [address] [id number] [place] [address]- 8920 Jan, [facility] [place] [facility] [address] [id number] [place] [address]- 9572 Jan, [facility] [place] [facility] [address] [id number] [place] [address]- 1428 Jan, [facility] [place] [facility] [address] [id number] [place] [address]- 1309 Jan, [facility] [place] [facility] [address] [id number] [place] [address]- 8945 Jan, [facility] [place] [facility] [address] [id number] [place] [address]- 2921 Jan, [facility] [place] [facility] [address] [id number] [place] [address]- 2786 Jan, [facility] [place] [facility] [address] [id number] [place] [address]- 5108 Jan, [facility] [place] [facility] [address] [id number] [place] [address]- 6534 Jan, [facility] [place] [facility] [address] [id number] [place] [address]- 0536 Dec, [facility] [place] [facility] [address] [id number] [place] [address]- 7000 Dec, [facility] [place] [facility] [address] [id number] [place] [address]- 1997 Dec, [facility] [place] [facility] [address] [id number] [place] [address]- 9460 Dec, [facility] [place] [facility] [address] [id number] [place] [address]- 5314 Nov, [facility] [place] [facility] [address] [id number] [place] [address]- 1120 Nov, [facility] [place] [facility] [address] [id number] [place] [address]- 5855 Nov, [facility] [place] [facility] [address] [id number] [place] [address]- 6508 Nov, [facility] [address] [id number] [place] [address]- 1173 Nov, [facility] [place] [facility] [address] [id number] [place] [address]- 4606 October, [facility] [place] [facility] [address] [id number] [place] [address]- 0448 October, [facility] [place] [facility] [address] [id number] [place] [address]- 4993 October, [facility] [place] [facility] [address] [id number] [place] [address]- 0365 October, [facility] [place] [facility] [address] [id number] [place] [address]- 7158 October, [facility] [place] [facility] [address] [id number] [place] [address]- 7415 October, [facility] [place] [facility] [address] [id number] [place] [address]- 4560 October, [facility] [place] [facility] [address] [id number] [place] [address]- 8704 October, [facility] [place] [facility] [address] [id number] [place] [address]- 9417 October, [facility] [place] [facility] [address] [id number] [place] [address]- 1967 October, [facility] [place] [facility] [address] [id number] [place] [address]- 7403 October, [facility] [place] [facility] [address] [id number] [place] [address]- 8860 October, [facility] [place] [facility] [address] [id number] [place] [address]- 9028 October, [facility] [place] [facility] [address] [id number] [place] [address]- 7718 October, [facility] [place] [facility] [address] [id number] [place] [address]- 1728 17 Sep, 2013 [facility] [place] [facility] [address] [id number] [place] [address]- 5597 17 Sep, 2013 [facility] [place] [facility] [address] [id number] [place] [address]- 8469 Sep, [facility] [place] [facility] [address] [id number] [place] [address]- 8970 Sep, [facility] [place] [facility] [address] [id number] [place] [address]- 4066 Sep, [facility] [place] [facility] [address] [id number] [place] [address]- 7181 Sep, [facility] [place] [facility] [address] [id number] [place] [address]- 9992 Sep, [facility] [place] [facility] [address] [id number] [place] [address]- 3502 Sep, [facility] [place] [facility] [address] [id number] [place] [address]- 8193 Sep, [facility] [place] [facility] [address] [id number] [place] [address]- 4788 Sep, [facility] [place] [facility] [address] [id number] [place] [address]- 3403 Sep, [facility] [place] [facility] [address] [id number] [place] [address]- 9157 Sep, [facility] [place] [facility] [address] [id number] [place] [address]- 7821 Sep, [facility] [place] [facility] [address] [id number] [place] [address]- 9565 Sep, [facility] [place] [facility] [address] [id number] [place] [address]- 4275 Sep, [facility] [place] [facility] [address] [id number] [place] [address]- 6633 Aug, [facility] [place] [facility] [address] [id number] [place] [address]- 9281 Aug, [facility] [place] [facility] [address] [id number] [place] [address]- 2761 Aug, [facility] [place] [facility] [address] [id number] [place] [address]- 0194 Aug, [facility] [place] [facility] [address] [id number] [place] [address]- 7075 Jul, [facility] [place] [facility] [address] [id number] [place] [address]- 3343 Jul, [facility] [place] [facility] [address] [id number] [place] [address]- 4577 Jul, [facility] [place] [facility] [address] [id number] [place] [address]- 7671 Jul, [facility] [place] [facility] [address] [id number] [place] [address]- 7521 Jun, [facility] [place] [facility] [address] [id number] [place] [address]- 9078 Jun, [facility] [place] [facility] [address] [id number] [place] [address]- 5384 Jun, [facility] [place] [facility] [address] [id number] [place] [address]- 6186 Jun, [facility] [place] [facility] [address] [id number] [place] [address]- 9587 Jun, [facility] [place] [facility] [address] [id number] [place] [address]- 5370 Jun, [facility] [place] [facility] [address] [id number] [place] [address]- 7255 Jun, [facility] [place] [facility] [address] [id number] [place] [address]- 2050 Jun, [facility] [place] [facility] [address] [id number] [place] 4013 20 May, 2012 [facility] [address] [id number] [place] 0623 20 May, 2013 [facility] [address] [id number] [place] 1765 18 May, 2013 [facility] [address] [id number] [place] 1094 18 May, 2013 [facility] [address] [id number] [place] [address]- 3925 17 May, 2013 [facility] [address] [id number] [id number] 17 May, 2013 [facility] [address] [id number] [place] [address]- 2731 17 May, 2013 [facility] [address] [id number] [place] [address]- 2628 17 May, 2013 [facility] [address] [id number] [place] [address]- 3746 16 May, 2013 [facility] [address] [id number] [place] [address]- 0433 16 May, 2013 [facility] [address] [facility] [id number] [place] [address]- 1567 14 May, 2013 [facility] [address] [id number] [place] [address]- 0743 14 May, 2013 [facility] [address] [id number] [place] [address]- 8006 13 May, 2013 [facility] [address] [id number] [place] 6390 13 May, 2013 [facility] [address] [facility] [id number] [place] [address]- 8505 12 May, 2013 [facility] [address] [id number] [place]679 May, [facility] [address] [id number] [place] [address]- 7456 May, [facility] [address] [id number] [place] [address]- 0411 May, [facility] [address] [id number] [place] 7437 Apr, [facility] [address] [id number] [place] [address]- 8663 Apr, [facility] [address] [id number] [place] [address]- 9097 Apr, [facility] [address] [id number] [place] [address]- 0839 Apr, [facility] [address] [id number] [place] [address]993 Aug, [facility] [address] [id number] [place] [address]- 2524 Aug, [facility] [address] [id number] [place] [address]- 5191 Aug, [facility] [address] [id number] [place] [address]- 1332 Aug, [facility] [address] [id number] [place] [address]- 8928 Jul, [facility] [address] [id number] [place] [address]- 2010 Jun, [facility] [place] [facility] [address] [id number] [place] [address]- 8543 Jun, [facility] [place] [facility] [address] [id number] [place] [address]- 0806 Jun, [facility] [place] [facility] [address] [id number] [place] [address]- 1092 Jun, [facility] [address] [id number] [place] [address]- 1192 May, [facility] [place] [facility] [address] [id number] [place] [address]- 1317 May, [facility] [place] [facility] [address] [id number] [place] [address]- 8237 May, [facility] [place] [facility] [address] [facility] [id number] [place] [address]- 0157 May, [facility] [place] [facility] [address] [id number] [place] [address]- 6367 May, [facility] [place] [facility] [address] [id number] [place] [address]- 2478 May, [facility] [place] [facility] [address] [id number] [place] [address]- 9955 May, [facility] [place] [facility] [address] [id number] [place] [address]- 4256 Apr, [facility] [place] [facility] [address] [id number] [place] [address]- 4354 Apr, [facility] [place] [facility] [address] [id number] [place] [address]- 2177 Apr, [facility] [place] [facility] [address] [facility] [id number] [place] [address]- 1777 Apr, [facility] [place] [facility] [address] [id number] [place] [address]- 6232 Apr, [facility] [place] [facility] [address] [id number] [place] [address]- 9041 Apr, [facility] [place] [facility] [address] [id number] [place] [address]- 1420 Apr, [facility] [place] [facility] [address] [facility] [id number] [place] [address]- 9825 Mar, [facility] [place] [facility] [address] [facility] [id number] [place] [address]- 6859 Mar, [facility] [place] [facility] [address] [id number] [place] [address]- 1868 Mar, [facility] [place] [facility] [address] [id number] [place] [address]- 0836 Mar, [facility] [place] [facility] [address] [id number] [place] [address]- 0280 Mar, [facility] [place] [facility] [address] [id number] [place] [address]- 9487 Mar, [facility] [place] [facility] [address] [id number] [place] [address]- 9849 Mar, [facility] [place] [facility] [address] [id number] [place] [address]- 5022 Mar, [facility] [place] [facility] [address] [id number] [place] [address]- 6972 Mar, [facility] [place] [facility] [address] [id number] [place] [address]- 0400 Mar, [facility] [place] [facility] [address] [id number] [place] [address]- 2904 Mar, [facility] [place] [facility] [address] [id number] [place] [address]- 9541 Mar, [facility] [place] [facility] [address] [id number] [place] [address]- 4100 Feb, [facility] [place] [facility] [address] [id number] [place] [address]- 8091 Jan, [facility] [place] [facility] [address] [id number] [place] [address]- 7550 Jan, [facility] [place] [facility] [address] [id number] [place] [address] Jan, [facility] [place] [facility] [address] [id number] [place] [address] 2546 Jan, [facility] [place] [facility] [address] [id number] [place] [address] Jan, [facility] [address] [id number] [place] [address] Dec, [facility] [place] [facility] [address] [id number] [place] [address] Dec, [facility] [place] [facility] [address] [id number] [place] [address] Nov, [facility] [place] [facility] [address] [id number] [place] [address] Nov, [facility] [place] [facility] [address] [id number] [place] [address] Nov, [facility] [place] [facility] [address] [id number] [place] [address] October, [facility] [place] [facility] [address] [id number] [place] [address] 39[address] October, [facility] [place] [facility] [address] [id number] [place] [address] 10[address] October, [facility] [place] [facility] [address] [id number] [place] [address] 2359 October, [facility] [place] [facility] [address] [id number] [place] [address] 12[address] October, [facility] [place] [facility] [address] [id number] [place] [address] 7717 October, [facility] [place] [facility] [address] [id number] [place] [address] 37[address] October, [facility] [place] [facility] [address] [id number] [place] [address] Sep, [facility] [place] [facility] [address] [id number] [place] [address] Sep, [facility] [place] [facility] [address] [id number] [place] [address]87 Sep, [facility] [place] [facility] [address] [id number] [place] [address] 8789 25 Sep, 2011 [facility] [place] [facility] [address] [id number] [place] [address] 3832 24 Sep, 2011 [facility] [place] [facility] [address] [id number] [place] [address]- [address]306 19 Sep, 2011 [facility] [place] [facility] [address] [id number] [place] [address] 4536 17 Sep, 2011 [facility] [place] [facility] [address] [id number] [place] [address]- 6694 16 Sep, 2011 [facility] [place] [facility] [address] [id number] [place] [address] 8359 16 Sep, 2011 [facility] [place] [facility] [address] [id number] [place] [address]- 1020 14 Sep, 2011 [facility] [address] [id number] [place] [address] 8511 13 Sep, 2011 [facility] [place] [facility] [address] [id number] [place] [address]- 8211 10 Sep, 2011 [facility] [place] [facility] [address] [id number] [place] [address]- [address] 09 Sep, 2011 [facility] [place] [facility] [address] [id number] [place] [address]- 1506 27 Aug, 2011 [facility] [place] [facility] [address] [id number] [place] [address] 12 Aug, 2011 [facility] [place] [facility] [address] [id number] [place] [address]- 4868 08 Aug, 2011 [facility] [place] [facility] [address] [id number] [place] [address]- 7155 06 Aug, 2011 [facility] [place] [facility] [address] [id number] [place] [address] 7966 28 Jul, 2011 [facility] [place] [facility] [address] [id number] [place] [address] 3351 22 Jul, 2011 [facility] [place] [facility] [address] [id number] [place] [address] 9407 16 Jul, 2011 [facility] [place] [facility] [address] [id number] [place] [address] 7616 15 Jul, 2011 [facility] [place] [facility] [address] [id number] [place] [address] 2719 14 Jul, 2011 [facility] [place] [facility] [address] [id number] [place] [address]- 2013 10 Jul, 2011 [facility] [place] [facility] [address] [id number] [place] [address]- [address]298 Jun, [facility] [place] [facility] [address] [id number] [place] [address]- [address]489 Jun, [facility] [place] [facility] [address] [id number] [place] [address] 5549 Jun, [facility] [place] [facility] [address] [id number] [place] [address]- 9063 Jun, [facility] [place] [facility] [address] [id number] [place] [address] 69[address] Jun, [facility] [place] [facility] [address] [id number] [place] [address]- [address] May, [facility] [place] [facility] [address] [id number] [place] [address] 9149 May, [facility] [place] [facility] [address] [id number] [place] [address]012 14 May, 2011 [facility] [place] [facility] [address] [id number] [place] [address]- 7310 14 May, 2011 [facility] [place] [facility] [address] [id number] [place] [address]- 7221 12 May, 2011 [facility] [place] [facility] [address] [id number] [place] [address]- 1238 07 May, 2011 [facility] [place] [facility] [address] [id number] [place] [address]- [address] 05 May, 2011 [facility] [place] [facility] [address] [id number] [place] [address]- 7510 15 Apr, 2011 [facility] [place] [facility] [address] [id number] [place] [address]806 15 Apr, 2011 [facility] [place] [facility] [address] [facility] [id number] [place] [address]- [address]156 Apr, [facility] [place] [facility] [address] [id number] [place] [address] 9889 Apr, [facility] [place] [facility] [address] [id number] [place] [address], [place] [address]- [address] Apr, [facility] [place] [facility] [address] [id number] [place] [address] 2437 Apr, [facility] [place] [facility] [address] [facility] [id number] [place] [address]- 0294 Mar, [facility] [place] [facility] [address] [id number] [place] [address]- 7102 Mar, [facility] [place] [facility] [address] [facility] [id number] [place] [address]- 8477 Mar, [facility] [place] [facility] [address] [facility] [id number] [place] [address]- 7359 Mar, [facility] [place] [facility] [address] [id number] [place] [address] Jan, [facility] [place] [facility] [address] [id number] [place] [address]- 8313 Dec, [facility] [place] [facility] [address] [id number] [place] [address]- 4979 Dec, [facility] [place] [facility] [address] [facility] [id number] [place] [address]- 9141 October, [facility] [place] [facility] [address] [facility] [id number] [place] [address]- 6601 Sep, [facility] [place] [facility] [address] [id number] [place] [address]- 6176 14 Sep, 2010 [facility] [place] [facility] [address] [id number] [place] [address]- 7446 17 Jul, 2010 [facility] [place] [facility] [address] [id number] [place] [address]- 2546 16 Jul, 2010 [facility] [place] [facility] [address] [id number] [place] [address]- 1262 31 May, 2010 [facility] [place] [facility] [address] [address] [id number] [place] [address] 27 May, 2010 [facility] [place] [facility] [address] [id number] [place] [address] 08 May, 2010 [facility] [place] [facility] [address] [id number] [place] [address] May, [facility] [place] [facility] [address] [id number] [place] [address] Apr, [facility] [place] [facility] [address] [id number] [place] [address] Apr, [facility] [place] [facility] [address] [id number] [place] [address] Apr, [facility] [place] [facility] [address] [id number] [place] [address] Apr, [facility] [place] [facility] [address] [id number] [place] [address] Apr, [facility] [place] [facility] [address] [id number] [place] [address] 21 Mar, 2010 [facility] [place] [facility] [address] [id number] [place] [address] 14 Mar, 2010 [facility] [place] [facility] [address] [id number] [place] [address] 13 Mar, 2010 [facility] [place] [facility] [address] [id number] [place] [address] Mar, [facility] [address] [id number] [address] Jan, [facility] [address] [address] Dec, [facility] [address] [address] Sep, [facility] [address] [address] May, [facility] [address] [address] May, [facility] [id number] [place] [address] May, [facility] [id number] [place] [address] Apr, [facility] [address] [address] Apr, [facility] [address] [address] Apr, [facility] [address] [address] Apr, [facility] [address] [address] Apr, [facility] [address] [address] Mar, [facility] [address] [address] Mar, [facility] [address] [address] Jul, IMMUNIZATIONS No Known Immunizations SOCIAL HISTORY Never Assessed REASON FOR VISIT EMR-[facility] PLAN OF CARE VITAL SIGNS MEDICATIONS Unknown [...] surgery the January before. 03/2018 Hospitalization History Cellulitis-[facility] 12/20/15 Hospitalization History [facility]- Abd pain 03/07/2017 Hospitalization History [facility]- Abd pain 03/14/2017 Hospitalization History [facility]- No bowel movement, rash 04/13/2017 Hospitalization History [facility]- Abd pain r/t kidney surgery on 04/17/2017 Hospitalization History [facility]- Abd pain r/t kidney surgery on 04/18/2017 Hospitalization History [facility]- Lower abd pain 04/30/2017 Hospitalization History [facility]- Cannot urinate 05/30/2017 Hospitalization History [facility]- Pancreatitis Sx 06/29/2017 Hospitalization History [facility]- Stomach pain 07/22/2017 [facility]- Left side pain 08/12/2017 Hospitalization History [facility]- Incision site infection 08/30/2017 Hospitalization History [facility]- Post Op Seroma/Hematoma Left Abdomen. Discharged 09/04/17- Dr Daniel 09/02/2017 Hospitalization History [facility]- Right shoulder and back pain 2017 Hospitalization History [facility]- Shoulder/Back pain 11/11/2017 Hospitalization [facility]- Right shoulder blade pain 12/04/2017 Hospitalization [facility]- C-Diff 12/13/2017 Hospitalization History C diff et MRSA 12/27/2017
[2018-09-09 14:02] LABS: BILIRUBIN,URINE NEGATIVE (NEGATIVE); CLARITY,URINE VERY CLOUDY; COLOR,URINE YELLOW; GLUCOSE, URINE (UA) NEGATIVE (NEGATIVE); KETONES,URINE NEGATIVE (NEGATIVE); LEUKOCYTE ESTERASE ,URINE NEGATIVE (NEGATIVE); NITRITE,URINE NEGATIVE (NEGATIVE); PH,URINE 5 (5-9); PROTEIN,URINE 1+ (NEGATIVE); UROBILINOGEN,URINE NORMAL (NORMAL)
--- NOTE | 2018-09-09 14:10 | ED GU-Female ---
General Chief Complaint: - Urinary Stated Complaint: PAIN WITH URINATION Nursing Triage Note: PT ARRIVED POV WITH C/O PAINFUL URINATION. THIS HAS BEEN HAPPENING SINCE SATURDAY. PT STATES SHE HAS A HEADACHE. Nursing Sepsis Screen: No Definite Risk Source: patient Exam Limitations: no limitations History of Present Illness Date Seen by Provider: Sep 09, 2018 Time Seen by Provider: 14:08 Initial Comments 33-year-old female who presents to the emergency room with complaints of pain and burning with urination and a headache that started 3 days ago. She denies fevers. Reports she has tried to drink plenty of water but seems to not improve her symptoms. Timing/Duration: other (3 days) Severity/Quality: burning Modifying Factors: Worsens With Urinating Associated Symptoms: dysuria; No nausea/vomiting; urinary frequency Allergies and Home Medications Allergies Coded Allergies: fentanyl (Verified Allergy, Unknown, 08/25/18) meperidine (Verified Allergy, Unknown, 08/25/18) penicillin G (Verified Allergy, Unknown, 08/25/18) vancomycin (Unverified Adverse Reaction, Intermediate, severe itching, 05/05) Home Medications Cyanocobalamin 1,000 Mcg/Ml Inj, 1,000 MCG IJ MONTHLY, (Reported) Cyclobenzaprine HCl 10 Mg Tablet, 10 MG PO Q8H Prescribed by: DEMETRIO KAY on 07/05/18 1232 Estradiol 2 Mg Tablet, 2 MG PO HS, (Reported) Metoprolol Succinate 25 Mg Tab.er.24h, 25 MG PO HS, (Reported) Nitrofurantoin Monohyd/M-Cryst 100 Mg Capsule, 1 TAB PO BID Prescribed by: DEMETRIO KAY on 09/09/18 1433 Ondansetron 8 Mg Tab.rapdis, 8 MG PO BID PRN for NAUSEA/VOMITING-1ST LINE, ( Reported) Promethazine HCl 25 Mg Tablet, 25 MG PO Q6H PRN for NAUSEA/VOMITING-2ND LINE, ( Reported) Ropinirole HCl 4 Mg Tablet, 4 MG PO HS, (Reported) Sertraline HCl 50 Mg Tablet, 50 MG PO DAILY, (Reported) Tizanidine HCl 4 Mg Tablet, 4 MG PO TID PRN for MUSCLE SPASMS, (Reported) Patient Home Medication List Home Medication List Reviewed: Yes Review of Systems Review of Systems Constitutional: see HPI; No chills, No fever Genitourinary: see HPI, burning, frequency, pain Psychiatric/Neurological: See HPI, Headache All Other Systemes Reviewed Negative Unless Noted: Yes Past Pnowrwq-Svhgtw-Wuihfe Hx Past Med/Social Hx: Reviewed Nursing Past Med/Soc Hx Patient Social History Alcohol Use: Denies Use Recreational Drug Use: No Type Used: Cigarettes 2nd Hand Smoke Exposure: No Recent Foreign Travel: No Contact w/Someone Who Travel: No Recent Infectious Disease Expo: No Recent Hopitalizations: No Immunizations Up To Date Tetanus Booster (TDap): Unknown PED Vaccines UTD: No Date of Pneumonia Vaccine: May 17, 2012 Date of Influenza Vaccine: Jul 03, 2012 Seasonal Allergies Seasonal Allergies: Yes (MILD) Past Medical History Surgeries: Yes Abdominal, Adenoidectomy, Appendectomy, Gallbladder, 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, Nephrectomy, Orthopedic, Tonsillectomy Respiratory: No Asthma Currently Using CPAP: No Currently Using BIPAP: No Cardiac: Yes Hypertension Neurological: Yes (RESTLESS LEG SYNDROME) Headaches /Migraines : No (HYSTERECTOMY) 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: No (HX ENDOMETRIOSIS ) 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 Sexually Transmitted Disease: No HIV/AIDS: No Genitourinary: Yes (L KIDNEY REMOVED FOR TUMOR-MALIGNANT;) UTI-Chronic Gastrointestinal: Yes Abdominal Hernia, Liver Disease/Jaundice, Pancreatitis, Polyps Musculoskeletal: Yes (COCCYX-REPAIRED, ) Chronic Back Pain Endocrine: Yes (CHRONIC PANCREATITIS; OBESITY) HEENT: No Loss of Vision: Denies Hearing Impairment: Denies Cancer: Yes Kidney Did You Recieve Any Treatments: Yes What Type of Treatment Did You: Surgical Intervention Psychosocial: Yes Anxiety, Depression Integumentary: No Herpes Blood Disorders: No Adverse Reaction/Blood Tranf: No (N/A) Family Medical History Reviewed Nursing Family Hx Cardiovascular disease 19 FATHER Completed stroke 19 FATHER Diabetes mellitus 19 FATHER Hypercholesterolemia 19 FATHER 19 MOTHER Hypertension 19 FATHER 19 MOTHER Neoplasm 19 MOTHER Psychosocial problem 19 FATHER 19 MOTHER No Pertinent Family Hx, Cancer, Diabetes, Hypertension Physical Exam Vital Signs Vital Signs - First Documented 09/09/18 13:49 Temp 98.6 Pulse 92 Resp 18 B/P (MAP) 146/87 (106) Pulse Ox 97 O2 Delivery Room Air Capillary Refill : Less Than 3 Seconds Height, Weight, BMI Height: 5'2.00" Weight: 260lbs. 0.0oz. 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, no motor/sensory deficits, alert, normal mood/affect, oriented x 3 Skin: normal color, warm/dry Progress/Results/Core Measures Suspected Sepsis Recent Fever Within 48 Hours: No Infection Criteria Present: None New/Unexplained Altered Menta: No Sepsis Screen: No Definite Risk SIRS Temperature:98.6 Pulse: 92 Respiratory Rate: 18 Blood Pressure 146 /87 Mean: 106 Results/Orders Lab Results Laboratory Tests Test 09/09/18 13:56 Range/Units Urine Color YELLOW Urine Clarity VERY CLOUDY H Urine pH 5 5-9 Urine Specific [place] 1.020 1.016-1.022 Urine Protein 1+ H NEGATIVE Urine Glucose (UA) NEGATIVE NEGATIVE Urine Ketones NEGATIVE NEGATIVE Urine Nitrite NEGATIVE NEGATIVE Urine Bilirubin NEGATIVE NEGATIVE Urine Urobilinogen NORMAL NORMAL MG/DL Urine Leukocyte Esterase NEGATIVE NEGATIVE Urine RBC (Auto) NEGATIVE NEGATIVE Urine RBC NONE /HPF Urine WBC 0-2 /HPF Urine Squamous Epithelial Cells 2-5 /HPF Urine Crystals NONE /LPF Urine Bacteria MODERATE H /HPF Urine Casts NONE /LPF Urine Mucus NEGATIVE /LPF Urine Culture Indicated YES My Orders Orders - DEMETRIO KAY Ua Culture If Indicated (09/09/18 13:46) Urine Culture (09/09/18 13:56) Vital Signs/I&O 09/09/18 09/09/18 13:49 14:36 Temp 98.6 98.1 Pulse 92 74 Resp 18 18 B/P (MAP) 146/87 (106) 136/74 (94) Pulse Ox 97 100 O2 Delivery Room Air Room Air Capillary Refill : Less Than 3 Seconds Blood Pressure Mean: 106 Departure Impression Primary Impression: Urinary tract infection Disposition: 01 HOME, SELF-CARE Condition: Stable/Unchanged Departure-Patient Inst. Decision time for Depature: 14:31 Referrals: CARMEN GIBBS MD (PCP/Family) Primary Care Physician Patient Instructions: Urinary Tract Infection, Adult (DC) Add. Discharge Instructions: Take medications as directed. Be sure you drink plenty of fluids to stay hydrated. Return back to the emergency room for worsening symptoms or concerns as needed. You may use Tylenol as directed by the bottle for pain relief. Follow -up with Dr. Gibbs within 1 week for recheck. All discharge instructions reviewed with patient and/or family. Voiced understanding. Scripts Nitrofurantoin Monohyd/M-Cryst (Macrobid 100 mg Capsule) 100 Mg Capsule 1 TAB PO BID for 5 Days, #10 CAP Prov: DEMETRIO KAY 09/09/18 DEMETRIO KAY Sep 09, 2018 14:10
[2018-09-09 14:16] LABS: BACTERIA,URINE MODERATE /HPF; WBC,URINE 0-2 /HPF
[2018-09-09] MEDS ORDERED: NITR-65 PO (14:33)
[2018-09-09 14:36] VITALS: BP 136/74
== END 2018-09-09 14:36 | disposition home or self-care (01) ==
LOC: EDUNIT# 13:45 → ER 13:46
DX: N39.0 Urinary tract infection, site not specified (principal); J45.909 Unspecified asthma, uncomplicated; I10 Essential (primary) hypertension; G25.81 Restless legs syndrome; G43.909 Migraine, unspecified, not intractable, without status migrainosus; E66.9 Obesity, unspecified; F41.9 Anxiety disorder, unspecified; F32.9 Major depressive disorder, single episode, unspecified; Z82.49 Family history of ischemic heart disease and other diseases of the circulatory system; Z68.42 Body mass index [BMI] 45.0-49.9, adult; Z86.19 Personal history of other infectious and parasitic diseases; Z87.19 Personal history of other diseases of the digestive system; Z86.010 Personal history of colon polyps; Z87.448 Personal history of other diseases of urinary system; Z88.0 Allergy status to penicillin; Z88.8 Allergy status to other drugs, medicaments and biological substances; Z88.1 Allergy status to other antibiotic agents; Z90.49 Acquired absence of other specified parts of digestive tract; Z98.890 Other specified postprocedural states; Z90.710 Acquired absence of both cervix and uterus; Z90.89 Acquired absence of other organs; Z90.5 Acquired absence of kidney
CPT/HCPCS: 81000; 87088; 99282

== ENCOUNTER 2018-09-20 21:46 | Emergency (ER) | payer MEDICARE, MEDICAID ==
[~2018-09-20] VITALS: Ht 157.5 cm; Wt 117.9 kg
[2018-09-20] MEDS ORDERED: NS IV 1000 ML 1,000 ML IV ONE (22:19)
[2018-09-20 22:29] LABS: BILIRUBIN,URINE NEGATIVE (NEGATIVE); CLARITY,URINE VERY CLOUDY; COLOR,URINE YELLOW; GLUCOSE, URINE (UA) NEGATIVE (NEGATIVE); KETONES,URINE NEGATIVE (NEGATIVE); LEUKOCYTE ESTERASE ,URINE NEGATIVE (NEGATIVE); NITRITE,URINE NEGATIVE (NEGATIVE); PH,URINE 5 (5-9); PROTEIN,URINE 1+ (NEGATIVE); UROBILINOGEN,URINE NORMAL (NORMAL)
[2018-09-20 22:35] VITALS: BP_SYST 132; BP_SYST 139; BP_SYST 145; BP_DIAS 84; BP_DIAS 87; BP_DIAS 93
[2018-09-20 22:43] LABS: BACTERIA,URINE LARGE /HPF; SQUAMOUS EPITHELIAL CELL,UR 25-50 /HPF
[2018-09-20 22:49] LABS: BASOPHILS % (AUTO) 0 % (0-10); EOSINOPHILS # (AUTO) 0.3 10^3/uL (0.0-0.3); EOSINOPHILS % (AUTO) 3 % (0-10); HEMATOCRIT 36 % (35-52); HEMOGLOBIN 11.8 G/DL (11.5-16.0); LYMPHOCYTES # (AUTO) 3.1 X 10^3 (1.0-4.0); LYMPHOCYTES % (AUTO) 31 % (12-44); MEAN CORPUSCULAR HEMOGLOBIN 28 PG (25-34); MEAN CORPUSCULAR HGB CONC 33 G/DL (32-36); MEAN CORPUSCULAR VOLUME 85 FL (80-99); MEAN PLATELET VOLUME 9.4 FL (7.4-10.4); MONOCYTES # (AUTO) 0.5 X 10^3 (0.0-1.0); MONOCYTES % (AUTO) 5 % (0-12); NEUTROPHILS # (AUTO) 6.2 X 10^3 (1.8-7.8); NEUTROPHILS % (AUTO) 62 % (42-75); PLATELET COUNT 310 10^3/uL (130-400); RED CELL DISTRIBUTION WIDTH 14.9 % (10.0-14.5); WHITE BLOOD COUNT 10.1 10^3/uL (4.3-11.0)
[2018-09-20 23:04] LABS: INR 0.9 (0.8-1.4); PROTHROMBIN TIME PATIENT 12.6 SEC (12.2-14.7)
[2018-09-20 23:12] LABS: ALANINE AMINOTRANSFERASE 23 U/L (0-55); ALBUMIN 3.9 GM/DL (3.2-4.5); ALKALINE PHOSPHATASE 58 U/L (40-136); AMYLASE 50 U/L (25-125); BILIRUBIN,TOTAL 0.2 MG/DL (0.1-1.0); BUN/CREATININE RATIO 15; CARBON DIOXIDE 23 MMOL/L (21-32); CHLORIDE 109 MMOL/L (98-107); CREATININE SERUM 0.92 MG/DL (0.60-1.30); GFR ESTIMATED > 60; GLUCOSE 100 MG/DL (70-105); LIPASE 37 U/L (8-78); POTASSIUM 3.9 MMOL/L (3.6-5.0); SODIUM 143 MMOL/L (135-145); TOTAL PROTEIN 7.2 GM/DL (6.4-8.2)
[2018-09-21] MEDS ORDERED: ONDANSETRON 4 MG/2 ML (SDV) Z0FRAN IVP ONE (00:30)
[2018-09-21] MEDS ORDERED: PANTOPRAZOLE 40 MG (PROTONIX) TAB PO ONE (01:15)
[2018-09-21] MEDS ORDERED: LIDOCAINE 2% VISCOUS 15 ML UDC PO ONE (01:15)
[2018-09-21] MEDS ORDERED: SUCRALFATE 1 GM (CARAFATE) TAB PO ONE (01:15)
[2018-09-21] MEDS ORDERED: ANTACID SUSP 30 ML UDC (MYLANTA) PO ONE (01:15)
[2018-09-21] MEDS ORDERED: SUCR1TAB36 PO (01:18)
[2018-09-21] MEDS ORDERED: PANT40TA2 PO (01:18)
--- NOTE | 2018-09-21 01:18 | ED GI ---
General Chief Complaint: Abdominal/GI Problems Stated Complaint: ABD PAIN,BLOOD IN STOOL Nursing Triage Note: Pt c/o sharp epigastric abd pain radiating to back. Pt also reports bloody stools today. Sepsis Screen: No Definite Risk Allergies and Home Medications Allergies Coded Allergies: fentanyl (Verified Allergy, Unknown, 08/25/18) meperidine (Verified Allergy, Unknown, 08/25/18) penicillin G (Verified Allergy, Unknown, 08/25/18) vancomycin (Unverified Adverse Reaction, Intermediate, severe itching, 05/05) Home Medications Cyanocobalamin 1,000 Mcg/Ml Inj, 1,000 MCG IJ MONTHLY, (Reported) Cyclobenzaprine HCl 10 Mg Tablet, 10 MG PO Q8H Prescribed by: DEMETRIO KAY on 07/05/18 1232 Estradiol 2 Mg Tablet, 2 MG PO HS, (Reported) Metoprolol Succinate 25 Mg Tab.er.24h, 25 MG PO HS, (Reported) Nitrofurantoin Monohyd/M-Cryst 100 Mg Capsule, 1 TAB PO BID Prescribed by: DEMETRIO KAY on 09/09/18 1433 Ondansetron 8 Mg Tab.rapdis, 8 MG PO BID PRN for NAUSEA/VOMITING-1ST LINE, ( Reported) Promethazine HCl 25 Mg Tablet, 25 MG PO Q6H PRN for NAUSEA/VOMITING-2ND LINE, ( Reported) Ropinirole HCl 4 Mg Tablet, 4 MG PO HS, (Reported) Sertraline HCl 50 Mg Tablet, 50 MG PO DAILY, (Reported) Tizanidine HCl 4 Mg Tablet, 4 MG PO TID PRN for MUSCLE SPASMS, (Reported) Past Doupqaz-Jxisra-Ebolyk Hx Patient Social History Alcohol Use: Denies Use Recreational Drug Use: No Smoking Status: Former Smoker Type Used: Cigarettes 2nd Hand Smoke Exposure: No Recent Foreign Travel: No Contact w/Someone Who Travel: No Recent Infectious Disease Expo: No Recent Hopitalizations: No Immunizations Up To Date Tetanus Booster (TDap): Unknown PED Vaccines UTD: No Date of Pneumonia Vaccine: May 17, 2012 Date of Influenza Vaccine: Jul 03, 2012 Seasonal Allergies Seasonal Allergies: Yes (MILD) Past Medical History Surgeries: Yes Abdominal, Adenoidectomy, Appendectomy, Gallbladder, 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, Nephrectomy, Orthopedic, Tonsillectomy Respiratory: No Asthma Currently Using CPAP: No Currently Using BIPAP: No Cardiac: Yes Hypertension Neurological: Yes (RESTLESS LEG SYNDROME) Headaches /Migraines 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: No (HX ENDOMETRIOSIS ) 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 Sexually Transmitted Disease: No HIV/AIDS: No Genitourinary: Yes (L KIDNEY REMOVED FOR TUMOR-MALIGNANT;) UTI-Chronic Gastrointestinal: Yes Abdominal Hernia, Liver Disease/Jaundice, Pancreatitis, Polyps Musculoskeletal: Yes (COCCYX-REPAIRED, ) Chronic Back Pain Endocrine: Yes (CHRONIC PANCREATITIS; OBESITY) HEENT: No Loss of Vision: Denies Hearing Impairment: Denies Cancer: Yes Kidney Did You Recieve Any Treatments: Yes What Type of Treatment Did You: Surgical Intervention Psychosocial: Yes Anxiety, Depression Integumentary: No Herpes Blood Disorders: No Adverse Reaction/Blood Tranf: No (N/A) Family Medical History Cardiovascular disease 19 FATHER Completed stroke 19 FATHER Diabetes mellitus 19 FATHER Hypercholesterolemia 19 FATHER 19 MOTHER Hypertension 19 FATHER 19 MOTHER Neoplasm 19 MOTHER Psychosocial problem 19 FATHER 19 MOTHER No Pertinent Family Hx, Cancer, Diabetes, Hypertension Physical Exam Vital Signs Vital Signs - First Documented 09/20/18 22:12 Temp 97.8 Pulse 83 Resp 18 B/P (MAP) 170/96 (120) Pulse Ox 99 O2 Delivery Room Air Capillary Refill : Less Than 3 Seconds Height/Weight/BMI Height: 5'2.00" Weight: 260lbs. 0.0oz. 117.044513of; 47.6 BMI Method:Stated Progress/Results/Core Measures Results/Orders Lab Results Laboratory Tests Test 09/20/18 22:18 09/20/18 22:41 Range/Units Urine Color YELLOW Urine Clarity VERY CLOUDY H Urine pH 5 5-9 Urine Specific [place] 1.025 H 1.016-1.022 Urine Protein 1+ H NEGATIVE Urine Glucose (UA) NEGATIVE NEGATIVE Urine Ketones NEGATIVE NEGATIVE Urine Nitrite NEGATIVE NEGATIVE Urine Bilirubin NEGATIVE NEGATIVE Urine Urobilinogen NORMAL NORMAL MG/DL Urine Leukocyte Esterase NEGATIVE NEGATIVE Urine RBC (Auto) NEGATIVE NEGATIVE Urine RBC NONE /HPF Urine WBC 2-5 /HPF Urine Squamous Epithelial Cells 25-50 H /HPF Urine Crystals NONE /LPF Urine Bacteria LARGE H /HPF Urine Casts NONE /LPF Urine Mucus NEGATIVE /LPF Urine Culture Indicated YES White Blood Count 10.1 4.3-11.0 10^3/uL Red Blood Count 4.22 L 4.35-5.85 10^6/uL Hemoglobin 11.8 11.5-16.0 G/DL Hematocrit 36 35-52 % Mean Corpuscular Volume 85 80-99 FL Mean Corpuscular Hemoglobin 28 25-34 PG Mean Corpuscular Hemoglobin Concent 33 32-36 G/DL Red Cell Distribution Width 14.9 H 10.0-14.5 % Platelet Count 310 130-400 10^3/uL Mean Platelet Volume 9.4 7.4-10.4 FL Neutrophils (%) (Auto) 62 42-75 % Lymphocytes (%) (Auto) 31 12-44 % Monocytes (%) (Auto) 5 0-12 % Eosinophils (%) (Auto) 3 0-10 % Basophils (%) (Auto) 0 0-10 % Neutrophils # (Auto) 6.2 1.8-7.8 X 10^3 Lymphocytes # (Auto) 3.1 1.0-4.0 X 10^3 Monocytes # (Auto) 0.5 0.0-1.0 X 10^3 Eosinophils # (Auto) 0.3 0.0-0.3 10^3/uL Basophils # (Auto) 0.0 0.0-0.1 10^3/uL Prothrombin Time 12.6 12.2-14.7 SEC INR Comment 0.9 0.8-1.4 Activated Partial Thromboplast Time 28 24-35 SEC Sodium Level 143 135-145 MMOL/L Potassium Level 3.9 3.6-5.0 MMOL/L Chloride Level 109 H 98-107 MMOL/L Carbon Dioxide Level 23 21-32 MMOL/L Anion Gap 11 5-14 MMOL/L Blood Urea Nitrogen 14 7-18 MG/DL Creatinine 0.92 0.60-1.30 MG/DL Estimat Glomerular Filtration Rate > 60 BUN/Creatinine Ratio 15 Glucose Level 100 70-105 MG/DL Calcium Level 9.0 8.5-10.1 MG/DL Corrected Calcium 9.1 8.5-10.1 MG/DL Total Bilirubin 0.2 0.1-1.0 MG/DL Aspartate Amino Transf (AST/SGOT) 37 H 5-34 U/L Alanine Aminotransferase (ALT/SGPT) 23 0-55 U/L Alkaline Phosphatase 58 40-136 U/L Total Protein 7.2 6.4-8.2 GM/DL Albumin 3.9 3.2-4.5 GM/DL Amylase Level 50 25-125 U/L Lipase 37 8-78 U/L My Orders Orders - SHANKARYAN Vickey DO Amylase (09/20/18 22:19) Cbc With Automated Diff (09/20/18 22:19) Comprehensive Metabolic Panel (09/20/18 22:19) Lipase (09/20/18 22:19) Protime With Inr (09/20/18 22:19) Partial Thromboplastin Time (09/20/18 22:19) Ua Culture If Indicated (09/20/18 22:19) Orthostatic Vital Signs (Adult (09/20/18 22:19) Saline Lock/Iv-Start (09/20/18 22:19) Ns Iv 1000 Ml (Sodium Chloride 0.9%) (09/20/18 22:19) Urine Culture (09/20/18 22:18) Ct Abdomen/Pelvis W (09/20/18 23:26) Acute Abd Series (09/20/18 23:26) Ondansetron Injection (Zofran Injectio (09/21/18 00:30) Pantoprazole Tablet (Protonix Tablet) (09/21/18 01:15) Sucralfate Tablet (Carafate Tablet) (09/21/18 01:15) Lidocaine 2% Viscous 15 Ml (Xylocaine Vi (09/21/18 01:15) Mylanta Po (09/21/18 01:15) Medications Given in ED Current Medications Medications Dose Ordered Sig/Neal Route Start Time Stop Time Status Last Admin Dose Admin Ondansetron HCl 8 mg ONCE ONCE IVP 09/21/18 00:30 09/21/18 00:31 DC 09/21/18 00:43 8 MG Sodium Chloride 1,000 ml @ 0 mls/hr Q0M ONCE IV 09/20/18 22:19 09/20/18 22:21 DC 09/20/18 22:45 999 MLS/HR Vital Signs/I&O 09/20/18 09/20/18 22:12 22:35 Temp 97.8 Pulse 83 88 77 81 Resp 18 B/P (MAP) 170/96 (120) 139/84 (102) 132/87 (102) 145/93 (110) Pulse Ox 99 O2 Delivery Room Air Blood Pressure Mean: 110 Departure Impression Primary Impression: Epigastric abdominal pain Additional Impression: reported blood in stools Disposition: HOME, SELF-CARE Condition: Stable Departure-Patient Inst. Referrals: LINDSEY MARROQUIN BETHANY N MD (PCP/Family) Primary Care Physician Patient Instructions: Acute Abdomen (Belly Pain), Adult (DC), Bloody Stools, Adult (DC) Add. Discharge Instructions: TAKE YOUR MEDICATIONS PRESCRIBED FOLLOW [facility]Bowen [facility] AND[facility]OR DR. MARROQUIN NEXT WEEK FOR FURTHER CARE All discharge instructions reviewed with patient and/or family. Voiced understanding. Scripts Pantoprazole Sodium (Protonix) 40 Mg Tablet. 40 MG PO DAILY, #15 TAB Prov: YAN CHAPARRO DO 09/21/18 Sucralfate (Carafate) 1 Gm Tablet 1 GM PO QIDACHS, #60 TAB Prov: YAN CHAPARRO DO 09/21/18 YAN CHAPARRO DO Sep 21, 2018 01:18
[2018-09-21 01:49] VITALS: BP 138/91
--- NOTE | 2018-09-21 07:27 | Diagnostic Imaging Report ---
PROCEDURE: CT abdomen and pelvis with contrast. TECHNIQUE: Multiple contiguous axial images were obtained through the abdomen and pelvis after administration of intravenous contrast. Auto Exposure Controls were utilized during the CT exam to meet ALARA standards for radiation dose reduction. INDICATION: Abdominal pain. Comparison made with prior examination from 07/01/2018. FINDINGS: The heart size is normal. The lung bases are clear. The liver is normal in size without focal lesions. Gallbladder is surgically absent. There is no biliary ductal dilatation. Spleen is normal. The pancreas and adrenal glands are unremarkable. Left kidney appears to be absent. Right kidney is normal. Aorta is nonaneurysmal. Bowel gas pattern is nonspecific. There is some unchanged scarring in the subcutaneous tissues of the left lower quadrant. There is a lateral wall hernia on the left containing a loop of nonobstructed bowel. The osseous structures are unremarkable. IMPRESSION: Left lateral wall abdominal hernia containing a loop of small bowel which is neither strangulated nor obstructed. Unchanged scarring in the subcutaneous tissues of the left lateral abdominal wall. No other acute abnormality in the abdomen or pelvis. Dictated by: Dictated on workstation # [id number]
--- NOTE | 2018-09-21 07:59 | Diagnostic Imaging Report ---
INDICATION: Abdominal pain. FINDINGS: Heart size is normal. Lung bases are clear. There is no pleural effusion or pneumothorax. The bowel gas pattern is nonspecific. There is no free air. There are surgical clips in the right upper quadrant. There are no abnormal abdominal calcifications. IMPRESSION: No acute cardiopulmonary abnormality. Nonspecific bowel gas pattern. Dictated by: Dictated on workstation # [id number]
== END 2018-09-21 01:49 | disposition home or self-care (01) ==
LOC: EDUNIT# 21:46 → ER 21:48
DX: K92.1 Melena (principal); J45.909 Unspecified asthma, uncomplicated; I10 Essential (primary) hypertension; G43.909 Migraine, unspecified, not intractable, without status migrainosus; G25.81 Restless legs syndrome; E66.9 Obesity, unspecified; F41.9 Anxiety disorder, unspecified; F32.9 Major depressive disorder, single episode, unspecified; Z82.49 Family history of ischemic heart disease and other diseases of the circulatory system; Z68.42 Body mass index [BMI] 45.0-49.9, adult; Z86.19 Personal history of other infectious and parasitic diseases; Z86.010 Personal history of colon polyps; Z87.19 Personal history of other diseases of the digestive system; Z87.440 Personal history of urinary (tract) infections; Z87.448 Personal history of other diseases of urinary system; Z88.8 Allergy status to other drugs, medicaments and biological substances; Z88.0 Allergy status to penicillin; Z88.1 Allergy status to other antibiotic agents; Z87.891 Personal history of nicotine dependence; Z90.49 Acquired absence of other specified parts of digestive tract; Z98.890 Other specified postprocedural states; Z90.710 Acquired absence of both cervix and uterus; Z90.89 Acquired absence of other organs; Z90.5 Acquired absence of kidney
CPT/HCPCS: 36415; 74022; 74177; 80053; 81000; 82150; 83690; 85025; 85610; 85730; 87088

== ENCOUNTER 2018-10-14 14:16 | Emergency (ER) | payer MEDICARE, MEDICAID ==
[~2018-10-14] VITALS: Ht 157.5 cm; Wt 117.9 kg
[~2018-10-14 14:16] MED LIST changes: +PANT40TA2 PO; +SUCR1TAB36 PO
--- OUTSIDE RECORDS SUMMARY | 2018-10-14 14:22 | XMS REPORT | Encounter Summary ---
Author Author [facility] Organization [facility] Address Unknown Phone Unavailable Care Team Providers Care Barrel Scraper Name Role Phone Michael Sutton MD Unavailable Unavailable Mary Whittington MD PCP Jessica Valera Unavailable Maggie Puente Unavailable Unavailable Mary Telles APRN Unavailable Bam Ritter MD Unavailable Radha Bo LPN Unavailable Unavailable Jose Sanchez MD Unavailable Reason for Visit * Reason Comments Medication Refill Encounter Details Care Team Description Date Type Department Jessica Valera ARNP [address] [facility] [address] [place] [address] Chronic nausea; Chronic vomiting 09/09/2018 Refill [facility] [address] [place] [address] Social History Date Tobacco Use [...]
--- OUTSIDE RECORDS SUMMARY | 2018-10-14 14:22 | XMS REPORT | Encounter Summary ---
Author Author [facility] Organization [facility] Address Unknown Phone Unavailable Care Team Providers Care Nailhead Setter Name Role Phone Michael Sutton MD Unavailable Unavailable Mary Whittington MD PCP Jessica Valera Unavailable Maggie Puente Unavailable Unavailable Mary Telles TAP AND DIE MAKER TECHNICIAN Unavailable Bam Ritter MD Unavailable Radha [...] Date Type Department Ekaterina Chairez CRNA [id number] [place], [place] [id number] 08/22/2018 Anesthesia [facility] [address] [place] [address] Anesthesia Record Responsible Anesthesiologist Anesthesia [...] Janice Dickerson MD - 08/22/2018 8:52 AM JAVA SOFTWARE ENGINEER Post-Anesthesia Evaluation Name: Janeth Rajput : 1985 [...] Perioperative Event: No Emergency Case Activation: No SOFTWARE ENGINEER * Anesthesia Preprocedure Evaluation - Nuzhat Rudolph CRNA - 08/22/2018 7:04 AM JAVA SOFTWARE ENGINEER Anesthesia Pre-Procedure Evaluation Name: Janeth Rajput : [...] Consent: consented Plan discussed with: anesthesiologist and REFERENCE DATA EXPERT. Comments: (Pt reports fentanyl and demerol allergy, says they cause itching and hallucinations. Reports she received benadryl for her last procedure and received fentanyl and had no adverse outcomes.) SOFTWARE ENGINEER documented in this encounter Plan of Treatment Not on filedocumented as of this encounter Visit Diagnoses Not on filedocumented in this encounter Administered Medications Action Date Dose Rate Site Medication Order MAR Action 08/22/2018 8:18 AM JAVA SOFTWARE ENGINEER 120 mg lidocaine (PF) injection Given INTRA-PROCEDURE MED, Starting Sat08/22/18 at 0818, Until Sat08/22/18 at 0834, Anesthesia Intra-op 08/22/2018 8:18 AM JAVA SOFTWARE ENGINEER 4 mg ondansetron (ZOFRAN) injection Given INTRA-PROCEDURE MED, Starting Sat08/22/18 at 0818, Until Sat08/22/18 at 0834, Anesthesia Intra-op 08/22/2018 8:24 AM JAVA SOFTWARE ENGINEER 140 mcg/kg/min 102.9 mL/hr propofol (DIPRIVAN) infusion Dose/Rate 50 mL, Intravenous, INTRA-PROCEDURE Change MED(CONT), Starting Sat08/22/18 at 0819, Until Sat08/22/18 at 08, Anesthesia Intra-op 130 mcg/kg/min 95.6 mL/hr Dose/Rate Change 08/22/2018 8:22 AM JAVA SOFTWARE ENGINEER 120 mcg/kg/min 88.2 mL/hr Given - New Bag 08/22/2018 8:19 AM JAVA SOFTWARE ENGINEER 08/22/2018 8:26 AM JAVA SOFTWARE ENGINEER 10 mg propofol (DIPRIVAN) injection Given INTRA-PROCEDURE MED, Starting Sat08/22/18 at 0819, Until Sat08/22/18 at 0834, Anesthesia Intra-op 20 mg Given 08/22/2018 8:25 AM JAVA SOFTWARE ENGINEER 20 mg Given 08/22/2018 8:23 AM JAVA SOFTWARE ENGINEER documented in this encounter
--- OUTSIDE RECORDS SUMMARY | 2018-10-14 14:22 | XMS REPORT | Encounter Summary ---
Author Author [facility] Organization [facility] Address Unknown Phone Unavailable Care Team Providers Care Student Activities Director Name Role Phone Michael Sutton MD Unavailable Unavailable Mary Whittington MD PCP Jessica Valera Unavailable Maggie Puente Unavailable Unavailable Mary Telles APRN Unavailable Bam Ritter MD Unavailable Radha Bo LPN Unavailable Unavailable Jose Sanchez MD Unavailable Reason for Visit * Reason Comments Referral Encounter Details Care Team Description Date Type Department Abel Poe MD [address] [place] [address] [phone] Referral 09/25/2018 Telephone [facility] [address] [address] Social History Date Tobacco Use Types Packs/Day [...] Telephone Encounter - Jenn Bhatt RN - 09/25/2018 4:13 PM CDT Pt paged here to ask the name of the surgeon who Dr. Poe would recommend for hernia repair. Her outside physician wants to refer her to for surgery. Informed her that Dr. Poe usually refers to general surgery- Dr. Stanford Hood or one of his colleagues. Pt took down the name and will let her physician in [place] know. documented in this encounter Plan of Treatment Not on filedocumented as of this encounter Visit Diagnoses Not on filedocumented in this encounter
--- OUTSIDE RECORDS SUMMARY | 2018-10-14 14:22 | XMS REPORT | Encounter Summary ---
Author Author [facility] Organization [facility] Address Unknown Phone Unavailable Care Team Providers Care Advertisement Distributor Name Role Phone Michael Sutton MD Unavailable Unavailable Mary Whittington MD PCP Jessica Valera Unavailable Maggie Puente Unavailable Unavailable Mary Telles APRN Unavailable Bam Ritter MD Unavailable Radha Bo LPN Unavailable Unavailable Jose Sanchez MD Unavailable Encounter Details Care Team Description Date Type Department Jessica Valera ARNP [address] [facility] Ortho/Med [place] [address] [place] [address] 10/14/2018 Telephone [facility] [address] [place] [address] Social History Date Tobacco Use [...] Telephone Encounter - Jessica Valera ARNP - 10/14/2018 1:16 PM CDT Call pt. She is very complex and has not been seen since 03/2018. Find out what her specific symptoms are then can update Dr. Nunez to see if he has any recommendations. She no showed her appointment with him in 06/2018. * Telephone Encounter - eJssica Valera ARNP - 10/14/2018 1:16 PM CDT Regarding: FW: Prescription Question Contact: ----- Message ----- From: Janeth Finley Sent: 10/14/2018 9:33 AM To: Coral Washington Nurse [facility] Subject: Prescription Question ----- Message from Felix Mychart, Generic sent at 10/14/2018 9:33 AM CDT ----- Nitin Thornton it's Janeth finley I was just letting you know I've been taking that medicine every day and my stomach is still killing me really bad upset in the hunger pains and everything still I'm so if you can give me a call back or email me don't matter I'm trying to get into dr. Whittington to see if she can try something if not I don't know what else to do and so just let me know prasanth fitzpatrick documented in this encounter Plan of Treatment Not on filedocumented as of this encounter Visit Diagnoses Not on filedocumented in this encounter
--- OUTSIDE RECORDS SUMMARY | 2018-10-14 14:22 | XMS REPORT | Clinical Summary ---
Author Author [facility] Organization [facility] Address Unknown Phone Unavailable Care Team Providers Care Special Education Case Manager Name Role Phone Michael Sutton [...] in the Health Information Management department at [phone] for further assistance in locating additional records.[facility] Allergies Comments Active Allergy Reactions Severity [...] as needed for Nausea or Vomiting. Active cyanocobalamin (VITAMIN INJECT 1 ML 1 [...] DAILY. PLACE vomiting ON TONGUE TO DISSOLVE. Active omeprazole DR(+) Take one 30 capsule 5 (PRILOSEC) 40 mg capsule capsule by 9 mouth daily before breakfast. 10/06/[address](+) Take one 30 capsule 5 (PRILOSEC) 40 mg capsule capsule by 8 mouth daily before breakfast. Active Problems Problem Noted Date Other chronic pancreatitis 01/14/2018 Overview: Added automatically from request for surgery [id number] Intractable vomiting with nausea 01/14/2018 Overview: Added automatically from request for surgery [id number] Left renal mass 04/10/2017 Renal mass 03/21/2017 Overview: Added automatically from request for surgery [id number] 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 06/24/2013 Overview: S/P HO[place], BSO 11/27 Depression 06/24/2013 S/P cholecystectomy 06/24/2013 Overview: 2007 S/P appendectomy 06/24/2013 Overview: November 2012 Pancreatitis 10/23/2011 Encounters Care Team Description Date Type Specialty Jessica Valera ARNP 10/14/2018 Telephone Gastroenterology Abel Poe MD Referral 09/25/2018 Telephone Oncology Jessica Valera ARNP Chronic nausea; Chronic vomiting 09/09/2018 Refill Gastroenterology Melina Vargas Diarrhea, unspecified type 08/29/2018 Orders Only Gastroenterology Ekaterina Chairez CRNA 08/22/2018 Anesthesia Event Hal Sparks MD ESOPHAGOGASTRODUODENOSCOPY WITH ENDOSCOPIC ULTRASOUND EXAMINATION - FLEXIBLE 08/22/2018 Surgery Hal Sparks MD Chronic pancreatitis, unspecified pancreatitis type (HCC) 08/22/2018 Hospital Encounter Randy Nunez MD Medication monitoring encounter 08/18/2018 Refill Gastroenterology from Last 3 Months Family History [...] Taken Vital Sign Reading 08/22/2018 8:50 AM FLUID JET CUTTER OPERATOR Blood Pressure 115/86 08/22/2018 8:54 AM FLUID JET CUTTER OPERATOR Pulse 89 08/22/2018 8:30 AM FLUID JET CUTTER OPERATOR Temperature 36.8 C (98.2 F) 05/19/2018 1:06 PM FLUID JET CUTTER OPERATOR Respiratory Rate 18 08/22/2018 8:53 AM FLUID JET CUTTER OPERATOR Oxygen Saturation 96% - Inhaled Oxygen - Concentration 08/22/2018 7:00 AM FLUID JET CUTTER OPERATOR Weight 122.5 kg (270 lb) 08/22/2018 7:00 AM FLUID JET CUTTER OPERATOR Height 157.5 cm (5' 2") 08/22/2018 7:00 AM FLUID JET CUTTER OPERATOR Body Mass Index 49.38 Plan of Treatment Health Maintenance Due Date Last Done Comments PHYSICAL (COMPREHENSIVE) 1991 EXAM HIV SCREENING 1999 DTAP/TDAP VACCINES (1 - 2002 Tdap) CERVICAL CANCER SCREENING 2014 INFLUENZA VACCINE 03/17/2019 06/03/2018 Procedures Comments Procedure Name Priority Date/Time Associated Diagnosis C DIFFICILE BY PCR Routine 08/26/2018 Diarrhea, unspecified type ESOPHAGOGASTRODUODENOSCOP 08/22/2018 Chronic pancreatitis, Y WITH ENDOSCOPIC 8:00 AM FLUID JET CUTTER OPERATOR unspecified pancreatitis ULTRASOUND EXAMINATION - type (HCC) [...] () ENDOSCOPIC ULTRASOUND 08/22/2018 REPORT 7:47 AM FLUID JET CUTTER OPERATOR from Last 3 Months Results * C DIFFICILE BY PCR (08/26/2018) Narrative Performed At Performing Organization Address City/State/Zipcode Phone Number OTHER OUTSIDE LAB * ENDOSCOPIC ULTRASOUND REPORT (08/22/2018 7:47 AM FLUID JET CUTTER OPERATOR) Provation Patient Name: Regulo WILKS OTHER Report Procedure Date: 08/22/2018 7:47 RESULTS AM CSN: [id number] Date of : 1985 Gender: Female Attending Physician: Hal Sparks MD Procedure: Upper EUS Indications: Epigastric abdominal pain, Family h/o chronic pancreatitis, pancreas divisum Providers: Hal Sparks MD (Doctor), Lorenza Powers RN (Nurse), Ana Fuentes (Manager Reimbursement) Referring Physician: Abel Poe, Randy Nunez MD Medications: Monitored Anesthesia Care Complications: No [...] 55 seconds Procedure Code(s): --- Professional --- 63116, Esophagogastroduodenoscopy, flexible, transoral; with endoscopic ultrasound examination limited to the esophagus, stomach or duodenum, and adjacent structures CPT copyright 2017 [employer]. All rights reserved. The codes documented in this report are preliminary and upon jewelry bench molder review may be revised to meet current [...] xxxxxxxxxxx 2011- PART A AND Present B AETNA MEDICAID AETNA xxxxxxxxxxx 2018-P [facility] Advance Directives Patient has advance care planning documents, and code status on file. For more information, please contact: [facility] [address] [place] [address] Date Inactivated Comments Code Status Date Activated 04/11/2017 4:57 PM Full Code 04/10/2017 5:31 PM Provider has discussed Code Status No, discussion not w/Patient or Family? necessary based on Dx
--- OUTSIDE RECORDS SUMMARY | 2018-10-14 14:22 | XMS REPORT | Encounter Summary ---
Author Author [facility] Organization [facility] Address Unknown Phone Unavailable Care Team Providers Care Plumber Assistant Name Role Phone Michael Sutton MD Unavailable Unavailable Mary Whittington MD PCP Jessica Valera Unavailable Maggie Puente Unavailable Unavailable Mary Telles APRN Unavailable Bam Ritter MD Unavailable Radha Bo LPN Unavailable Unavailable Jose Sanchez MD Unavailable Encounter Details Care Team Description Date Type Department Melina Vargas Diarrhea, unspecified type 08/29/2018 Orders Only [facility] [address] [place] [address] Social History Date Tobacco Use [...]
--- OUTSIDE RECORDS SUMMARY | 2018-10-14 14:23 | XMS REPORT | Encounter Summary ---
Author Author [facility] Organization [facility] Address Unknown Phone Unavailable Care Team Providers Care Senior Designer/Art Director Name Role Phone Michael Sutton MD Unavailable Unavailable Mary Whittington MD PCP Jessica Valera Unavailable Maggie Puente Unavailable Unavailable Mary Telles DEVELOPMENT SPECIALIST Unavailable Bam Ritter MD Unavailable Radha [...] Date Type Department Hal Sparks MD [address] Ortho/Med [place] [address] [place] [address] ESOPHAGOGASTRODUODENOSCOPY WITH ENDOSCOPIC ULTRASOUND EXAMINATION - FLEXIBLE 08/22/[address] [facility] [address] [place] [address] Social History Date Tobacco Use [...] Taken Vital Sign Reading 08/22/2018 8:50 AM TELEGRAPH EDITOR Blood Pressure 115/86 08/22/2018 8:54 AM TELEGRAPH EDITOR Pulse 89 08/22/2018 8:30 AM TELEGRAPH EDITOR Temperature 36.8 C (98.2 F) - Respiratory Rate - 08/22/2018 8:53 AM TELEGRAPH EDITOR Oxygen Saturation 96% - Inhaled Oxygen - Concentration 08/22/2018 7:00 AM TELEGRAPH EDITOR Weight 122.5 kg (270 lb) 08/22/2018 7:00 AM TELEGRAPH EDITOR Height 157.5 cm (5' 2") 08/22/2018 7:00 AM TELEGRAPH EDITOR Body Mass Index 49.38 documented in this [...] Mary Lechuga RN - 08/22/2018 8:46 AM TELEGRAPH EDITOR EGD/Upper EUS/ERCP/Antegrade Enteroscopy Post Upper Endoscopy Instructions [...] or concerns after your procedure please call [phone] M-F 8am-5:00 pm. After 5:00 pm, holidays or weekends call [phone] and ask for the GI Doctor personal carer. GRAPH EDITOR documented in this encounter Medications at Time [...] as needed for Pain Indications: PAIN 04/09/2018 prochlorperazine maleate Take one-half 30 tablet 1 (COMPAZINE) 10 mg tablet tablet by mouth every 6 hours as needed for Nausea or Vomiting. rOPINIRole (REQUIP) 4 mg Take 4 mg by 0 tablet mouth at bedtime daily. 05/13/2018 sertraline (ZOLOFT) 50 mg Daily 0 tablet 04/09/2018 10/06/[address](+) Take one 30 capsule 5 (PRILOSEC) 40 mg capsule capsule by mouth daily before breakfast. 09/02/2017 09/09/2018 ondansetron (ZOFRAN ODT) Dissolve 1 60 tablet 2 8 mg rapid dissolve tablet by tabletIndications: mouth twice Chronic nausea, Chronic daily. Place vomiting on tongue to disolve. documented as of this encounter H&P Notes * Joel Cantu MD - 08/22/2018 8:12 AM TELEGRAPH EDITOR Pre Procedure History and Physical/Sedation Plan Name:Janeth [...] Relevant labs reviewed Joel Cantu MD Pager GRAPH EDITOR documented in this encounter Plan of Treatment Not on filedocumented as of this encounter Procedures Comments Procedure Name Priority Date/Time Associated Diagnosis ESOPHAGOGASTRODUODENOSCOP 08/22/2018 Chronic pancreatitis, Y WITH ENDOSCOPIC 8:00 AM TELEGRAPH EDITOR unspecified pancreatitis ULTRASOUND EXAMINATION - type (HCC) [...] () ENDOSCOPIC ULTRASOUND 08/22/2018 REPORT 7:47 AM TELEGRAPH EDITOR documented in this encounter Results * ENDOSCOPIC ULTRASOUND REPORT (08/22/2018 7:47 AM TELEGRAPH EDITOR) Provation Patient Name: Regulo WILKS OTHER Report Procedure Date: 08/22/2018 7:47 RESULTS AM CSN: [id number] Date of : 1985 Gender: Female Attending Physician: Hal Sparks MD Procedure: Upper EUS Indications: Epigastric abdominal pain, Family h/o chronic pancreatitis, pancreas divisum Providers: Hal Sparks MD (Doctor), Lorenza Powers RN (Nurse), Ana Fuentes (Instant Powder Supervisor) Referring Physician: Randy Viveros MD Medications: Monitored [...] 55 seconds Procedure Code(s): --- Professional --- 79422, Esophagogastroduodenoscopy, flexible, transoral; with endoscopic ultrasound examination limited to the esophagus, stomach or duodenum, and adjacent structures CPT copyright 2017 [employer]. All rights reserved. The codes documented in this report are preliminary and upon technical documentation specialist review may be revised to meet [...] Medication Order MAR Action 08/22/2018 7:26 AM TELEGRAPH EDITOR 1,000 mL sodium chloride 0.9 % infusion Given - New 1,000 mL, Intravenous, CONTINUOUS, Bag Starting Sat08/22/18 at 0730, Until Sat08/22/18 at 1121, Pre-Op documented in this encounter
--- OUTSIDE RECORDS SUMMARY | 2018-10-14 14:23 | XMS REPORT | Encounter Summary ---
Author Author [facility] Organization [facility] Address Unknown Phone Unavailable Care Team Providers Care Travel Accommodations Rater Name Role Phone Michael Sutton MD Unavailable Unavailable Mary Whittington MD PCP Jessica Valera Unavailable Maggie Puente Unavailable Unavailable Mary Telles WAXER FLOOR Unavailable Bam Ritter MD Unavailable Radha Bo LPN Unavailable Unavailable Jose Sanchez MD Unavailable Reason for Visit * Auth/Cert Referred By Contact Referred To Contact Status Reason Specialty Diagnoses / Procedures Diagnoses Chronic pancreatitis, unspecified pancreatitis type (HCC) Nausea Generalized abdominal pain Chronic pancreatitis, unspecified pancreatitis type (HCC) [K86.1] Nausea [R11.0] Generalized abdominal pain [R10.84] P rocedures [place] EGD TRANSORAL BIOPSY SINGLE/MULTIPLE [place] EDG US EXAM SURGICAL ALTER STOM DUODENUM/JEJUNUM ESOPHAGOGASTRODUOD ENOSCOPY WITH BIOPSY - FLEXIBLE ESOPHAGOGASTRODUOD ENOSCOPY WITH ENDOSCOPIC ULTRASOUND EXAMINATION - FLEXIBLE Encounter Details Care Team Description Date Type Department Hal Sparks MD [address] Ortho/Med [address] [place] [address] Chronic pancreatitis, unspecified pancreatitis type (HCC) 08/22/2018 Hospital [facility] [address] [place] [address] Social History Date Tobacco Use [...] Taken Vital Sign Reading 08/22/2018 8:50 AM EDITOR FARM JOURNAL Blood Pressure 115/86 08/22/2018 8:54 AM EDITOR FARM JOURNAL Pulse 89 08/22/2018 8:30 AM EDITOR FARM JOURNAL Temperature 36.8 C (98.2 F) - Respiratory Rate - 08/22/2018 8:53 AM EDITOR FARM JOURNAL Oxygen Saturation 96% - Inhaled Oxygen - Concentration 08/22/2018 7:00 AM EDITOR FARM JOURNAL Weight 122.5 kg (270 lb) 08/22/2018 7:00 AM EDITOR FARM JOURNAL Height 157.5 cm (5' 2") 08/22/2018 7:00 AM EDITOR FARM JOURNAL Body Mass Index 49.38 documented in this [...] Mary Lechuga RN - 08/22/2018 8:46 AM EDITOR FARM JOURNAL EGD/Upper EUS/ERCP/Antegrade Enteroscopy Post Upper Endoscopy Instructions [...] After 5:00 pm, holidays or weekends call [phone] and ask for the GI Doctor communications analyst. OR FARM JOURNAL documented in this encounter Medications at Time [...] Joel Cantu MD - 08/22/2018 8:12 AM EDITOR FARM JOURNAL Pre Procedure History and Physical/Sedation Plan Name:Janeth [...] Relevant labs reviewed Joel Cantu MD Pager OR FARM JOURNAL documented in this encounter Plan of Treatment Not on filedocumented as of this encounter Procedures Comments Procedure Name Priority Date/Time Associated Diagnosis ESOPHAGOGASTRODUODENOSCOP 08/22/2018 Chronic pancreatitis, Y WITH ENDOSCOPIC 8:00 AM EDITOR FARM JOURNAL unspecified pancreatitis ULTRASOUND EXAMINATION - type (HCC) [...] () ENDOSCOPIC ULTRASOUND 08/22/2018 REPORT 7:47 AM EDITOR FARM JOURNAL documented in this encounter Results * ENDOSCOPIC ULTRASOUND REPORT (08/22/2018 7:47 AM EDITOR FARM JOURNAL) Provation Patient Name: Regulo WILKS OTHER Report Procedure Date: 08/22/2018 7:47 RESULTS AM CSN: [id number] Date of : 1985 Gender: Female Attending Physician: Hal Sparks MD Procedure: Upper EUS Indications: Epigastric abdominal pain, Family h/o chronic pancreatitis, pancreas divisum Providers: Hal Sparks MD (Doctor), Lorenza Powers RN (Nurse), Ana Fuentes (Women Specialist) Referring Physician: Randy Viveros MD Medications: Monitored [...] 55 seconds Procedure Code(s): --- Professional --- 66201, Esophagogastroduodenoscopy, flexible, transoral; with endoscopic ultrasound examination limited to the esophagus, stomach or duodenum, and adjacent structures CPT copyright 2017 [employer]. All rights reserved. The codes documented in this report are preliminary and upon switchman review may be revised to meet current [...] Medication Order MAR Action 08/22/2018 7:26 AM EDITOR FARM JOURNAL 1,000 mL sodium chloride 0.9 % infusion Given - New 1,000 mL, Intravenous, CONTINUOUS, Bag Starting Sat08/22/18 at 0730, Until Sat08/22/18 at 1121, Pre-Op documented in this encounter
--- OUTSIDE RECORDS SUMMARY | 2018-10-14 14:23 | XMS REPORT | Encounter Summary ---
Author Author [facility] Organization [facility] Address Unknown Phone Unavailable Care Team Providers Care Stocklayer Name Role Phone Michael Sutton MD Unavailable Unavailable Mary Whittington MD PCP Jessica Valera Unavailable Maggie Puente Unavailable Unavailable Mary Telles APRN Unavailable Bam Ritter MD Unavailable Radha Bo LPN Unavailable Unavailable Joes Sanchez MD Unavailable Reason for Visit * Reason Comments Medication Refill Encounter Details Care Team Description Date Type Department Randy Nunez MD [address] Ortho/Med [address] [place] [address] Medication monitoring encounter 08/18/2018 Refill [facility] [address] [place] [address] Social History Date Tobacco Use [...]
--- OUTSIDE RECORDS SUMMARY | 2018-10-14 14:24 | XMS REPORT ---
Author Author Migration, Doctor Organization [facility] Address Unknown Phone Unavailable Care Team Providers Care Disability Manager Name Role Phone Migration, Doctor Unavailable Unavailable PROBLEMS Type Condition ICD9-CM Code ULT57-BJ Code Onset Dates Condition Status SNOMED Code Problem Chronic tension-type headache, intractable G44.221 Active 485824589 Problem Right carpal tunnel syndrome G56.01 Active 491790007222671 Problem Hyperlipidemia, mixed E78.2 Active 710643810 Problem Morbid (severe) obesity due to excess calories E66.01 Active 479082344 Problem FH: polycystic ovary Z84.2 Active 713706287 Problem Hirsuties L68.0 Active 213887555 Problem Asthma J45.909 Active 110825904 Problem Chronic pancreatitis K86.1 Active 064288895 Problem Trichotillomania F63.3 Active 25563391 Problem Restless leg syndrome G25.81 Active 31756148 Problem Generalized social phobia F40.11 Active 97632930 Problem Primary osteoarthritis of right knee M17.11 Active [id number] Problem Atelectasis J98.11 Active 44043895 Problem History of renal cell carcinoma Z85.528 Active 381650105 Problem Obesities, morbid E66.01 Active 355859078 Problem Polydipsia R63.1 Active 62113267 Problem Nodule of left lung R91.1 Active 725553467 Problem Chronic post-traumatic stress disorder (PTSD) F43.12 Active 346463742 Problem Moderate episode of recurrent major depressive disorder F33.1 Active 432359413 Problem Chronic fatigue R53.82 Active 79901704 Problem Intestinal malabsorption, unspecified K90.9 Active 43502042 ALLERGIES No Information ENCOUNTERS Encounter Location Date Diagnosis [facility] [address] [facility] [id number] [address] October, [facility] [address] [facility] [id number] [address] October, [address] [address] Sep, [facility] [address] [facility] [id number] [address] Sep, [facility] [address] [facility] [id number] [address] Sep, [facility] [address] [facility] [id number] [place] [address] Sep, [facility] [address] [facility] [id number] [place] [address] 01084- 4925 Sep, Lower extremity edema R60.0 [facility] [address] [facility] [id number] [place] [address]8539- 4873 Sep, [facility] [address] [facility] [id number] [address] Sep, Lower extremity edema R60.0 and Morbid obesity E66.01 [facility] [address] [facility] [id number] [address] Sep, [facility] [address] [facility] [id number] [address] Sep, [facility] [address] [facility] [id number] [address] 88[address] Aug, [facility] [address] [facility] [id number] [address] Aug, Obesities, morbid E66.01 and Morbid obesity E66.01 [facility] [address] [facility] [id number] [address] Aug, [facility] [address] [place] [address] Jul, [facility] [address] [facility] [id number] [address] Jul, [facility] [address] [address] Jul, [facility] [address] [address] Jul, Numbness of right hand R20.0 [facility] [address] [place] [id number] [place] [address] 17364- 1109 Jul, [facility] [address] [id number] [place] [address] 10010- 1714 Jul, Numbness of right hand R20.0 [facility] [id number] [place] [address] 90271- 6380 Jul, [facility] [id number] [place] [address] 17858- 2616 Jul, [facility] [id number] [place] [address] 64614- 6652 Jul, Right-sided thoracic back pain M54.6 [facility] [address] [id number] [place] [address] 75475- 2432 Jul, [facility] [id number] [place] [address] 08347- 4206 Jul, [facility] [id number] [place] [address] 56377- 0490 Jul, [facility] [address] [address] 4061 Jul, [facility] [id number] [place] [address] 78973- 4449 Jun, [facility] [id number] [place] [address] 88014- 6834 Jun, Acute pain of right shoulder M25.511 ; Numbness of right hand R20.0 and Trapezius muscle spasm M62.838 [facility] [address] [address] Jun, [facility] [id number] [place] [address] 24501- 2831 Jun, [facility] [id number] [place] [address] 37249- 7070 Jun, Cough R05 ; BMI 50.0-59.9, adult Z68.43 and Morbid obesity E66.01 [facility] [id number] [place] [address] 33648- 4057 Jun, [facility] [address] [address]- 32[address] Jun, [facility] [id number] [place] [address] 00574 [address]4166 Jun, BMI 45.0-49.9, adult Z68.42 and Acute non-recurrent maxillary sinusitis J01.00 [facility] [id number] [place] [address] 74099 -5946 Jun, Acute sinusitis J01.90 ; Dysuria R30.0 and BMI 45.0-49.9, adult Z68.42 [facility] [id number] [place] [address] 56771- 1624 Jun, [facility] [id number] [place] [address] 26943- 5268 Jun, [facility] [id number] [place] [address] 32089- 7722 May, [facility] [id number] [place] [address] 06613- 6481 May, [facility] [id number] [place] [address] 27657- 6230 May, [facility] [id number] [place] [address] 14917- 9117 May, [facility] [id number] [place] [address] 97003- 6683 May, [facility] [id number] [place] [address] 21523- 9048 Apr, Generalized social phobia F40.11 ; Trichotillomania F63.3 ; Chronic post-traumatic stress disorder (PTSD) F43.12 and BMI 45.0-49.9, adult Z68.42 [place] [address] [id number] [place] [address] 06980- 6993 Apr, [place] [address] [id number] [place] [address] 94001- 4087 Apr, Chronic tension-type headache, intractable G44.221 [place] [address] 46657- 7864 Apr, [facility] [address] [address] Mar, [facility] [address] [address]63 -[address]956 Mar, BMI 45.0-49.9, adult Z68.42 and Pimples R23.8 [place] [id number] [place] [address] 77442- 6560 Mar, [place] [address] [id number] [place] [address] 44342- 3133 Mar, [place] [id number] [place] [address] 21555- 5841 Mar, Decreased urination R34 ; Chronic fatigue R53.82 ; Peripheral edema R60.9 ; Diarrhea, unspecified type R19.7 ; Non-intractable vomiting with nausea, unspecified vomiting type R11.2 ; BMI 45.0-49.9, adult Z68.42 and Chronic post-traumatic stress disorder (PTSD) F43.12 [place] [id number] [place] [address] 27022- 2658 Mar, Intestinal malabsorption, unspecified K90.9 ; Diarrhea, unspecified R19.7 ; Urinary urgency R39.15 ; Rectal bleeding K62.5 and Decreased urine output R34 [place] [id number] [place] [address] 93149- 3166 Mar, Decreased urine output R34 [facility] [id number] [place] [address] 78758- 4985 Mar, Rectal bleeding K62.5 [facility] [id number] [place] [address] 77270- 1135 Mar, Rectal bleeding K62.5 [facility] [id number] [place] [address] 52946- 7851 Mar, Urinary urgency R39.15 [facility] [id number] [place] [address] 34412- 2271 Mar, Urinary urgency R39.15 [facility] [id number] [place] [address] 17988- 0172 Mar, Primary osteoarthritis of right knee M17.11 and BMI 45.0- 49.9, adult Z68.42 [facility] [id number] [place] [address] 60501- 5225 Mar, [facility] [id number] [place] [address] 46978- 4062 Feb, Left upper arm pain M79.622 [facility] [id number] [place] [address] 93587- 1659 Feb, [facility] [id number] [place] [address] 21432- 3569 Jan, Acute pain of right knee M25.561 ; Right upper quadrant abdominal pain R10.11 and BMI 45.0-49.9, adult Z68.42 [facility] [id number] [place] [address] 90876- 2712 Jan, [facility] [id number] [place] [address] 51169- 0216 Jan, [facility] [id number] [place] [address] 14404- 5745 Dec, [facility] [address] [address]- 1891 Dec, Intestinal malabsorption, unspecified K90.9 and Diarrhea, unspecified R19.7 [facility] [address] [address]- 1590 Dec, [facility] [id number] [place] [address] 74113- 4368 Dec, Strep throat J02.0 ; Intestinal malabsorption, unspecified K90.9 ; Diarrhea, unspecified R19.7 ; Postoperative seroma involving digestive system after non-digestive system procedure K91.873 ; Hyperlipidemia, mixed E78.2 and BMI 45.0-49.9, adult Z68.42 [facility] [id number] [place] [address] 98651- 6213 Dec, [facility] [id number] [place] [address] 46948- 4661 Dec, Nausea R11.0 [facility] [id number] [place] [address] 97176- 1008 Dec, [facility] [id number] [place] [address] 84472 -5188 Dec, Sore throat J02.9 ; Strep throat J02.0 and BMI 45.0-49.9, adult Z68.42 [facility] [address] [address]- 0518 Dec, [facility] [address] [address]- 1370 Dec, [facility] [id number] [place] [address] 50786- 6563 Dec, [facility] [id number] [place] [address] 30219- 4216 Dec, [facility] [id number] [place] [address] 96102- 9759 Dec, [facility] [id number] [place] [address] 03766- 0573 Dec, [facility] [id number] [place] [address] 31340- 9942 Dec, [facility] [id number] [place] [address] 66700- 7187 Dec, [facility] [id number] [place] [address] 01567- 9047 Dec, Clostridium difficile colitis A04.72 ; Intractable vomiting with nausea, unspecified vomiting type R11.2 and BMI 45.0-49.9, adult Z68.42 [place] [id number] [place] [address] 13832- 5042 Dec, [facility] [id number] [place] [address] 65800- 0387 Nov, [facility] [id number] [place] [address] 41905- 5374 Nov, [facility] [id number] [place] [address] 01378- 1045 Nov, [facility] [id number] [place] [address] 43810- 8320 Nov, [facility] [id number] [place] [address] 96552 -6451 Nov, [facility] [id number] [place] [address] 42254- 3078 Nov, Hyperlipidemia, mixed E78.2 [facility] [address] 23003 -0886 Nov, Acute suppurative otitis media of right ear without spontaneous rupture of tympanic membrane, recurrence not specified H66.001 and BMI 45.0-49.9, adult Z68.42 [facility] [address] 56434- 1654 Nov, Hyperlipidemia, mixed E78.2 [place] [address] [address]- 0115 Nov, [place] [id number] [place] [address] 04284- 6629 Nov, [place] [id number] [place] [address] 92275- 2480 Nov, Nodule of left lung R91.1 [place] [id number] [place] [address] 71741- 6246 Nov, Medicare annual wellness visit, initial Z00.00 [...] and Encounter for immunization Z23 [place] [id number] [place] [address] 24451- 7552 October, [place] [id number] [place] [address] 02287- 8610 October, Nodule of left lung R91.1 [place] [id number] [place] [address] 61365- 9840 October, Nodule of left lung R91.1 [place] [id number] [place] [address] 73563- 8173 October, Recurrent major depressive disorder, in partial remission F33.41 ; Restless leg syndrome G25.81 ; Generalized social phobia F40.11 ; Chronic post-traumatic stress disorder (PTSD) F43.12 ; BMI 45.0-49.9, adult Z68.42 and Trichotillomania F63.[address] [address]- 9152 October, [facility] [id number] [place] [address] 92271- 3644 Sep, Chronic fatigue R53.82 and BMI 45.0-49.9, adult Z68.42 [facility] [id number] [place] [address] 40154- 2906 Aug, [facility] [id number] [place] [address] 88498- 3001 Jul, Restless leg syndrome G25.81 and B12 deficiency E53.8 [facility] [id number] [place] [address] 66014- 2376 Jul, [facility] [id number] [place] [address] 49885- 2296 Jul, [facility] [id number] [place] [address] 99584- 9727 Jun, [facility] [id number] [place] [address] 24243- 9778 Jun, Fatigue, unspecified type R53.83 ; History of renal cell carcinoma Z85.528 ; Chronic pancreatitis K86.1 ; Restless leg syndrome G25.81 ; Dark urine R82.99 and BMI 45.0-49.9, adult Z68.42 [facility] [id number] [place] [address] 28025- 5516 Jun, [facility] [id number] [place] [address] 49789- 8780 Jun, [facility] [id number] [place] [address] 27117- 7403 Jun, [facility] [id number] [address]- 3456 Jun, [facility] [id number] [place] [address] 20639- 7984 May, Chronic post-traumatic stress disorder (PTSD) F43.12 ; Moderate episode of recurrent major depressive disorder F33.1 ; Trichotillomania F63.3 and Generalized social phobia F40.11 [place] [address] [address]- 1188 May, [place] [address] [address]- 0732 May, Chronic post-traumatic stress disorder (PTSD) F43.12 ; Moderate episode of recurrent major depressive disorder F33.1 ; Trichotillomania F63.3 and Generalized social phobia F40.11 [place] [id number] [place] [address] 46434- 2929 May, Hyperlipidemia, mixed E78.2 ; Morbid (severe) obesity due to excess calories E66.01 ; Chronic post-traumatic stress disorder (PTSD) F43.12 ; Moderate episode of recurrent major depressive disorder F33.1 ; Trichotillomania F63.3 and Generalized social phobia F40.11 [place] [address] [address]- 8106 Apr, [place] [id number] [place] [address] 62008- 1537 Apr, Hyperlipidemia, mixed E78.2 ; Morbid (severe) obesity due to excess calories E66.01 ; Chronic post-traumatic stress disorder (PTSD) F43.12 ; Moderate episode of recurrent major depressive disorder F33.1 ; Trichotillomania F63.3 and Generalized social phobia F40.11 [place] [address] [address]- 5060 Apr, Trichotillomania F63.3 ; Generalized social phobia F40.11 ; Chronic post-traumatic stress disorder (PTSD) F43.12 and Moderate episode of recurrent major depressive disorder F33.1 [place] [address] [address]- 6312 Apr, [place] [id number] [place] [address] 44661- 0258 Apr, [place] [id number] [place] [address] 61581- 7968 Mar, Moderate episode of recurrent major depressive disorder F33.1 ; Trichotillomania F63.3 ; Chronic post-traumatic stress disorder (PTSD) F43.12 ; Generalized social phobia F40.11 and Restless leg syndrome G25.81 [place] [address] 76170- 3036 Mar, [place] [address] 04729- 4774 Mar, [place] [address] 31168- 6566 Feb, Left kidney mass N28.[address] 68494- 2503 Jan, [place] [id number] [place] [address] 38819- 2674 Dec, Polydipsia R63.1 ; Chronic pancreatitis K86.1 and Fatigue, unspecified type R53.83 [place] [id number] [place] [address] 40639- 4752 Nov, [place] [id number] [place] [address] 57742- 8391 Nov, [place] [id number] [place] [address] 34235- 2887 Nov, Headache around the eyes R51 [place] [id number] [place] [address] 07560- 9520 Nov, [place] [id number] [place] [address] 85085- 2936 October, STD exposure Z20.[address] 30756- 2132 October, STD exposure Z20.2 [place] [id number] [place] [address] 71230- 1117 October, Chronic post-traumatic stress disorder (PTSD) F43.12 ; Generalized social phobia F40.11 ; Trichotillomania F63.3 and Restless leg syndrome G25.81 [place] [id number] [place] [address] 47026- 2704 October, [facility] [id number] [place] [address] 40476- 3571 Sep, [place] [id number] [place] [address] 59626- 1720 Aug, [place] [id number] [place] [address] 87848- 9030 Aug, [place] [id number] [place] [address] 63742- 7352 Aug, Neck mass R22.1 [place] [id number] [place] [address] 98517- 6739 Aug, Atelectasis J98.11 [place] [id number] [place] [address] 65265- 8383 28 Jul, 2016 Hyperlipidemia, mixed E78.2 ; Atypical pneumonia J18.9 and Neck mass R22.1 [place] [id number] [place] [address] 09105- 2812 15 Jul, 2016 Hemoptysis R04.2 [place] [id number] [place] [address] 54008- 8009 08 Jul, 2016 Acute non-recurrent pansinusitis J01.40 ; Hemoptysis R04.2 ; Polydipsia R63.1 and Malaise R53.81 [facility] [address] [address] -[address]756 May, Other viral agents as the cause of diseases classified elsewhere B97.89 and Acute upper respiratory infection, unspecified J06.9 [id number] [address] Mar, Nausea R11.0 [facility] [place] [address] [place] [id number] [place] [address] 28 Dec, 2015 Hives L50.9 [place] [address] [place] [id number] [place] [address] 14 Dec, 2015 [facility] [place] [address] [place] [id number] [place] [address] Dec, Cutaneous abscess of limb, unspecified L02.419 ; Cellulitis of unspecified part of limb L03.119 ; Encounter for incision and drainage procedure Z01.89 and Encounter for recheck of abscess following incision and drainage Z09 [facility] [place] [address] [place] [id number] [place] [address] Dec, Abscess of leg, right L02.415 [place] [address] [place] [id number] [place] [address] Dec, Cellulitis of unspecified part of limb L03.119 and Cutaneous abscess of limb, unspecified L02.419 [place] [address] [place] [id number] [place] [address] Dec, [place] [address] [place] [id number] [place] [address] Dec, [facility] [place] [address] [place] [id number] [place] [address] Aug, [place] [address] [place] [id number] [place] [address] Aug, [facility] [place] [address] [place] [id number] [place] [address] 04 Jul, 2015 Pain in unspecified wrist M25.539 and Back pain, thoracic M54.6 [facility] [place] [address] [place] [id number] [place] [address] Jun, Strain of right wrist, initial encounter S66.911A [place] [address] [address] Jun, Chronic pancreatitis, unspecified pancreatitis type K86.1 ; Hirsuties L68.0 ; Morbid (severe) obesity due to excess calories E66.01 ; Chronic pancreatitis K86.1 and Asthma J45.909 [place] [address] [address] May, [place] [address] [address] May, Hyperlipidemia, mixed E78.2 and Muscle spasm of back M62.[address] [address] Apr, [address] [address] Apr, Torticollis M43.6 [place] [address] [address] Apr, Right-sided thoracic back pain M54.6 [place] [address] [id number] [place] [address] 14946- 2241 Mar, Rash R21 [place] [id number] [place] [address] 86485- 1315 Mar, [place] [id number] [place] [address] 26347- 0012 Jan, [place] [address] [address]- [address] Dec, [place] [address] 67971- 6895 Dec, Urinary frequency 788.41 and Nocturia more than twice per night 788.43 [place] [address] 6[address]- 8942 Nov, [facility] [id number] [address] Nov, [facility] [id number] [address] 7249 Nov, Abdominal pain 789.00 [facility] [id number] [address] 1647 October, TDAP DX V06.1 [facility] [id number] [address] 7966 October, [facility] [id number] [place] [address] 88467- 1827 October, Disturbance of skin sensation 782.0 ; Wrist pain, right 719.43 ; Hyperlipidemia 272.4 and Skin lesion of face 709.9 [facility] [id number] [address] 0633 Sep, [facility] [id number] [address]- 4298 Sep, [facility] [id number] [address]- 1044 Aug, [facility] [id number] [address]- 8026 Aug, [facility] [id number] [address]- 5542 Aug, [facility] [id number] [address]- 1871 23 Aug, 2014 [facility] [id number] [address]- 3849 Aug, [facility] [id number] [address]- 5396 16 Aug, 2014 [facility] [id number] [address] 14 Aug, 2014 [facility] [place] [facility] [address] [id number] [place] [address]- 9970 14 Aug, 2014 [facility] [place] [facility] [address] [id number] [place] [address]- 2110 Aug, [facility] [place] [facility] [address] [id number] [place] [address]- 8262 Aug, [facility] [place] [facility] [address] [id number] [place] [address]- 4953 Aug, [facility] [place] [facility] [address] [id number] [place] [address]- 3843 Aug, [facility] [place] [facility] [address] [id number] [place] [address]- 1737 Aug, [facility] [place] [facility] [address] [id number] [place] [address]- 3979 Aug, [facility] [place] [facility] [address] [id number] [place] [address]- 5023 Jul, [facility] [place] [facility] [address] [id number] [place] [address]- 3374 Jul, [facility] [place] [facility] [address] [id number] [place] [address]- 7643 Jul, [facility] [place] [facility] [address] [id number] [place] [address]- 4257 Jul, [facility] [place] [facility] [address] [id number] [address]- 8778 Jul, [facility] [place] [facility] [address] [id number] [place] [address]- 7999 Jul, [facility] [place] [facility] [address] [id number] [place] [address]- 3550 Jun, [facility] [place] [facility] [address] [id number] [place] [address]- 1467 Jun, [facility] [place] [facility] [address] [id number] [place] [address]- 0337 Jun, [facility] [address] [id number] [place] [address]- 1936 Jun, [facility] [address] [id number] [place] [address]- 6449 Jun, [facility] [address] [id number] [place] [address]- 3688 Jun, [facility] [address] [id number] [place] [address]- 5155 15 Jun, 2014 [facility] [address] [id number] [place] [address]- 5679 15 Jun, 2014 [facility] [address] [id number] [place] [address]- 5121 May, [facility] [address] [id number] [place] [address]- 9849 May, [facility] [address] [id number] [place] [address]- 1002 May, [facility] [address] [id number] [place] [address]- 8797 May, [facility] [address] [id number] [place] [address]- 1133 15 May, 2014 [facility] [place] [facility] [address] [id number] [place] [address]- 9415 15 May, 2014 [facility] [address] [id number] [place] [address]- 6990 May, [facility] [place] [facility] [address] [id number] [place] [address]- 9111 May, [facility] [place] [facility] [address] [id number] [place] [address]- 1409 May, [facility] [address] [id number] [place] [address]- 7027 May, [facility] [place] [facility] [address] [id number] [place] [address]- 9208 May, [facility] [place] [facility] [address] [id number] [place] [address]- 0030 May, [facility] [place] [facility] [address] [id number] [place] [address]- 4042 Apr, [facility] [place] [facility] [address] [id number] [place] [address]- 6402 Apr, [facility] [place] [facility] [address] [id number] [place] [address]- 7223 Apr, [facility] [place] [facility] [address] [id number] [place] [address]- 8576 Apr, [facility] [place] [facility] [address] [id number] [place] [address]- 9327 Apr, [facility] [place] [facility] [address] [id number] [place] [address]- 0106 Apr, [facility] [place] [facility] [address] [id number] [place] [address]- 7986 Apr, [facility] [place] [facility] [address] [id number] [place] [address]- 1207 Apr, [facility] [place] [facility] [address] [id number] [address]- 7537 Apr, [facility] [place] [facility] [address] [id number] [address]- 2583 Apr, [facility] [place] [facility] [address] [id number] [place] [address]- 6853 Apr, [facility] [place] [facility] [address] [id number] [place] [address]- 5258 Apr, [facility] [place] [facility] [address] [id number] [address]- 0387 14 Mar, 2014 [facility] [place] [facility] [address] [id number] [address]- 9693 Mar, [facility] [place] [facility] [address] [id number] [place] [address]- 3158 Mar, [facility] [place] [facility] [address] [id number] [place] [address]- 4748 Mar, [facility] [place] [facility] [address] [id number] [place] [address]- 3414 Feb, [facility] [place] [facility] [address] [id number] [place] [address]- 4465 Feb, [facility] [place] [facility] [address] [id number] [place] [address]- 8219 Feb, [facility] [place] [facility] [address] [id number] [place] [address]- 7606 Feb, [facility] [place] [facility] [address] [id number] [place] [address]- 8091 Feb, [facility] [place] [facility] [address] [id number] [place] [address]- 6986 Feb, [facility] [place] [facility] [address] [id number] [place] [address]- 5509 Jan, [facility] [place] [facility] [address] [id number] [place] [address]- 6503 Jan, [facility] [place] [facility] [address] [id number] [place] [address]- 6102 Jan, [facility] [place] [facility] [address] [id number] [place] [address]- 3384 Jan, [facility] [place] [facility] [address] [id number] [place] [address]- 5533 Jan, [facility] [place] [facility] [address] [id number] [place] [address]- 4125 Jan, [facility] [place] [facility] [address] [id number] [place] [address]- 1616 Jan, [facility] [place] [facility] [address] [id number] [place] [address]- 6480 Jan, [facility] [place] [facility] [address] [id number] [facility] [place] [address]- 3331 Jan, [facility] [place] [facility] [address] [id number] [place] [address]- 6980 Jan, [facility] [place] [facility] [address] [id number] [place] [address]- 6384 Jan, [facility] [place] [facility] [address] [id number] [place] [address]- 4281 Jan, [facility] [place] [facility] [address] [id number] [place] [address]- 2738 Jan, [facility] [place] [facility] [address] [id number] [place] [address]- 3927 Jan, [facility] [place] [facility] [address] [id number] [place] [address]- 0232 Dec, [facility] [place] [facility] [address] [id number] [place] [address]- 0384 Dec, [facility] [place] [facility] [address] [id number] [place] [address]- 7151 Dec, [facility] [place] [facility] [address] [id number] [place] [address]- 6765 Dec, [facility] [place] [facility] [address] [id number] [place] [address]- 5865 Nov, [facility] [place] [facility] [address] [id number] [place] [address]- 0339 Nov, [facility] [place] [facility] [address] [id number] [place] [address]- 6951 Nov, [facility] [place] [facility] [address] [id number] [place] [address]- 4501 Nov, [facility] [place] [facility] [address] [id number] [place] [address]- 7372 Nov, [facility] [place] [facility] [address] [id number] [place] [address]- 1646 October, [facility] [place] [facility] [address] [id number] [place] [address]- 7701 October, [facility] [place] [facility] [address] [id number] [place] [address]- 0310 October, [facility] [place] [facility] [address] [id number] [place] [address]- 7765 October, [facility] [place] [facility] [address] [id number] [place] [address]- 7883 October, [facility] [place] [facility] [address] [id number] [place] [address]- 8819 October, [facility] [place] [facility] [address] [id number] [place] [address]- 1017 October, [facility] [place] [facility] [address] [id number] [place] [address]- 8681 October, [facility] [place] [facility] [address] [id number] [place] [address]- 9275 October, [facility] [place] [facility] [address] [id number] [place] [address]- 9115 October, [facility] [place] [facility] [address] [id number] [place] [address]- 9199 October, [facility] [place] [facility] [address] [id number] [place] [address]- 6564 October, [facility] [place] [facility] [address] [id number] [place] [address]- 7024 October, [facility] [place] [facility] [address] [id number] [place] [address]- 7314 October, [facility] [place] [facility] [address] [id number] [place] [address]- 9743 Sep, [facility] [place] [facility] [address] [id number] [place] [address]- 2996 17 Sep, 2013 [facility] [place] [facility] [address] [id number] [place] [address]- 0100 14 Sep, 2013 [facility] [place] [facility] [address] [id number] [place] [address]- 8812 14 Sep, 2013 [facility] [place] [facility] [address] [id number] [place] [address]- 8702 Sep, [facility] [place] [facility] [address] [id number] [place] [address]- 6557 Sep, [facility] [place] [facility] [address] [id number] [place] [address]- 9321 Sep, [facility] [place] [facility] [address] [id number] [place] [address]- 0627 Sep, [facility] [place] [facility] [address] [id number] [place] [address]- 6213 Sep, [facility] [place] [facility] [address] [id number] [place] [address]- 8857 Sep, [facility] [place] [facility] [address] [id number] [place] [address]- 0913 Sep, [facility] [place] [facility] [address] [id number] [place] [address]- 6277 Sep, [facility] [place] [facility] [address] [id number] [place] [address]- 0208 Sep, [facility] [place] [facility] [address] [id number] [place] [address]- 5934 Sep, [facility] [place] [facility] [address] [id number] [place] [address]- 9219 Sep, [facility] [place] [facility] [address] [id number] [place] [address]- 2846 Aug, [facility] [place] [facility] [address] [id number] [place] [address]- 9677 Aug, [facility] [place] [facility] [address] [id number] [place] [address]- 1724 Aug, [facility] [place] [facility] [address] [id number] [place] [address]- 1462 Aug, [facility] [place] [facility] [address] [id number] [place] [address]- 0335 Jul, [facility] [place] [facility] [address] [id number] [place] [address]- 3328 Jul, [facility] [place] [facility] [address] [id number] [place] [address]- 6354 Jul, [facility] [place] [facility] [address] [id number] [place] [address]- 6076 Jul, [facility] [place] [facility] [address] [id number] [place] [address]- 4767 Jun, [facility] [place] [facility] [address] [id number] [place] [address]- 5465 Jun, [facility] [place] [facility] [address] [id number] [place] [address]- 1994 Jun, [facility] [place] [facility] [address] [id number] [place] [address]- 5183 Jun, [facility] [place] [facility] [address] [id number] [place] [address]- 9238 Jun, [facility] [place] [facility] [address] [id number] [place] [address]- 8617 Jun, [facility] [place] [facility] [address] [id number] [place] [address]- 9020 Jun, [facility] [place] [facility] [address] [id number] [place] [address]- 9735 Jun, [facility] [place] [facility] [address] [id number] [place] [address]- 7486 May, [facility] [place] [facility] [address] [id number] [place] [address]- 3728 20 May, 2013 [facility] [address] [id number] [place] [address]- 5125 18 May, 2013 [facility] [address] [id number] [place] 0960 18 May, 2013 [facility] [address] [id number] [place]67 17 May, 2013 [facility] [address] [id number] [place] [id number] 17 May, 2013 [facility] [address] [id number] [place] [address]- 1906 17 May, 2013 [facility] [address] [id number] [place] [address]- 3397 17 May, 2013 [facility] [address] [id number] [place] [address]- 6951 16 May, 2013 [facility] [address] [id number] [place] [address]- 0843 16 May, 2013 [facility] [address] [id number] [place] [address]- 2603 14 May, 2013 [facility] [address] [id number] [place] [address]- 4583 14 May, 2013 [facility] [address] [id number] [place] [address]- 9626 13 May, 2013 [facility] [address] [id number] [place] [address]- 8998 13 May, 2013 [facility] [address] [id number] [place] [address]- 6717 12 May, 2013 [facility] [address] [id number] [place] [address]- 8067 12 May, 2013 [facility] [address] [id number] [place] [address]- 5227 11 May, 2013 [facility] [place] [facility] [address] [id number] [place] [address] 2546 May, [facility] [address] [id number] [place] [address]- 5664 Apr, [facility] [address] [id number] [place] [address] 2546 Apr, [facility] [address] [id number] [place] [address]- 5836 Apr, [facility] [address] [id number] [place] [address]- 2474 Apr, [facility] [address] [id number] [place] [address]- 8410 Aug, [facility] [address] [id number] [place] [address]- 6596 Aug, [facility] [address] [id number] [place] [address]- 3903 Aug, [facility] [address] [id number] [place] [address]- 4279 05 Aug, 2012 [facility] [address] [id number] [place] [address]- 5468 Jul, [facility] [address] [id number] [place] [address]- 4574 Jun, [facility] [address] [id number] [place] [address]- 3176 Jun, [facility] [address] [id number] [place] [address]- 2546 Jun, [facility] [address] [id number] [place] [address]- 2546 Jun, [facility] [address] [id number] [place] [address]- 2546 May, [facility] [address] [id number] [place] [address]- 0221 May, [facility] [place] [facility] [address] [id number] [place] [address]- 2339 May, [facility] [place] [facility] [address] [id number] [place] [address]- 7853 May, [facility] [place] [facility] [address] [id number] [place] 1906 May, [facility] [place] [facility] [address] [id number] [place] [address]- 4969 May, [facility] [place] [facility] [address] [id number] [place] [address]- 9014 May, [facility] [place] [facility] [address] [id number] [place] [address]- 8980 Apr, [facility] [place] [facility] [address] [facility] [id number] [place] [address]- 7962 Apr, [facility] [place] [facility] [address] [id number] [address]- 3426 Apr, [facility] [place] [facility] [address] [id number] [address]- 8976 Apr, [facility] [place] [facility] [address] [id number] [place] [address]- 7723 Apr, [facility] [place] [facility] [address] [id number] [place] [address]- 4237 Apr, [facility] [place] [facility] [address] [id number] [address] Apr, [facility] [place] [facility] [address] [id number] [address] Mar, [facility] [place] [facility] [address] [id number] [place] [address] Mar, [facility] [place] [facility] [address] [facility] [id number] [place] [address] Mar, [facility] [place] [facility] [address] [id number] [place] [address] Mar, [facility] [place] [facility] [address] [id number] [place] [address] Mar, 2011 [facility] [place] [facility] [address] [id number] [place] [address] Mar, [facility] [place] [facility] [address] [id number] [place] [address] Mar, [facility] [place] [facility] [address] [id number] [place] [address] 2006 Mar, [facility] [place] [facility] [address] [id number] [place] [address] Mar, [facility] [place] [facility] [address] [id number] [place] [address] Mar, [facility] [place] [facility] [address] [id number] [place] [address] Mar, [facility] [place] [facility] [address] [id number] [place] [address] Mar, [facility] [place] [facility] [address] [id number] [place] [address] Feb, [facility] [place] [facility] [address] [facility] [id number] [place] [address] Jan, [facility] [place] [facility] [address] [id number] [place] [address] 14 Jan, 2012 [facility] [place] [facility] [address] [id number] [place] [address] Jan, [facility] [place] [facility] [address] [id number] [place] [address] Jan, [facility] [place] [facility] [address] [id number] [place] [address] Jan, [facility] [place] [facility] [address] [facility] [id number] [place] [address] Dec, [facility] [place] [facility] [address] [id number] [place] [address] Dec, [facility] [address] [id number] [place] [address] Nov, [facility] [place] [facility] [address] [id number] [place] [address] Nov, [facility] [place] [facility] [address] [id number] [place] [address]- [address] Nov, [facility] [place] [facility] [address] [id number] [place] [address] October, [facility] [place] [facility] [address] [id number] [place] [address] October, [facility] [place] [facility] [address] [id number] [place] [address] October, [facility] [address] [id number] [place] [address] October, [facility] [place] [facility] [address] [id number] [place] [address] October, [facility] [place] [facility] [address] [id number] [place] [address] October, [facility] [place] [facility] [address] [id number] [place] [address] October, [facility] [place] [facility] [address] [id number] [place] [address] Sep, [facility] [place] [facility] [address] [id number] [place] [address] Sep, [facility] [place] [facility] [address] [id number] [place] [address] Sep, [facility] [place] [facility] [address] [id number] [place] [address] Sep, [facility] [place] [facility] [address] [id number] [place] [address] 24 Sep, 2011 [facility] [place] [facility] [address] [id number] [place] [address] 19 Sep, 2011 [facility] [place] [facility] [address] [id number] [place] [address] 99[address] 17 Sep, 2011 [facility] [place] [facility] [address] [id number] [place] [address] 16 Sep, 2011 [facility] [place] [facility] [address] [id number] [place] [address] 6[address] 16 Sep, 2011 [facility] [place] [facility] [address] [id number] [place] [address]- [address]29 14 Sep, 2011 [facility] [place] [facility] [address] [id number] [place] [address] 8319 13 Sep, 2011 [facility] [place] [facility] [address] [id number] [place] [address]27 10 Sep, 2011 [facility] [place] [facility] [address] [id number] [place] [address]107 09 Sep, 2011 [facility] [place] [facility] [address] [id number] [place] [address]- [address]561 27 Aug, 2011 [facility] [place] [facility] [address] [id number] [place] [address] Aug, [facility] [place] [facility] [address] [id number] [place] [address] 8874 08 Aug, 2011 [facility] [place] [facility] [address] [id number] [place] [address] 06 Aug, 2011 [facility] [place] [facility] [address] [id number] [place] [address]- 2498 28 Jul, 2011 [facility] [place] [facility] [address] [id number] [place] [address] 3177 22 Jul, 2011 [facility] [place] [facility] [address] [id number] [place] [address]- 3560 16 Jul, 2011 [facility] [place] [facility] [address] [id number] [place] [address]- 3086 15 Jul, 2011 [facility] [address] [id number] [place] [address]156 14 Jul, 2011 [facility] [place] [facility] [address] [id number] [place] [address]- 3726 10 Jul, 2011 [facility] [address] [id number] [place] [address] 30 Jun, 2011 [facility] [place] [facility] [address] [id number] [place] [address]- 9279 Jun, [facility] [place] [facility] [address] [id number] [place] [address] 2087 Jun, [facility] [address] [id number] [place] [address]- 45[address] Jun, [facility] [address] [id number] [place] [address] Jun, [facility] [address] [id number] [place] [address]98 27 May, 2011 [facility] [address] [id number] [place] [address] May, [facility] [address] [id number] [place] [address]- 5853 14 May, 2011 [facility] [place] [facility] [address] [id number] [place] [address]- [address] 14 May, 2011 [facility] [place] [facility] [address] [id number] [place] [address] 12 May, 2011 [facility] [place] [facility] [address] [id number] [place] [address] 07 May, 2011 [facility] [place] [facility] [address] [id number] [place] [address] 05 May, 2011 [facility] [place] [facility] [address] [id number] [place] [address] 15 Apr, 2011 [facility] [place] [facility] [address] [id number] [place] [address] 15 Apr, 2011 [facility] [place] [facility] [address] [id number] [place] [address] Apr, [facility] [place] [facility] [address] [id number] [place] [address] Apr, [facility] [place] [facility] [address] [id number] [place] [address] Apr, [facility] [place] [facility] [address] [id number] [place] [address] Apr, [facility] [place] [facility] [address] [id number] [place] [address] Mar, [facility] [place] [facility] [address] [id number] [place] [address] Mar, [facility] [place] [facility] [address] [id number] [place] [address] Mar, [facility] [place] [facility] [address] [id number] [place] [address] Mar, [facility] [place] [facility] [address] [id number] [place] [address] Jan, [facility] [place] [facility] [address] [id number] [address] Dec, [facility] [place] [facility] [address] [id number] [address] Dec, [facility] [place] [facility] [address] [id number] [place] [address] October, [facility] [place] [facility] [address] [id number] [place] [address] 20 Sep, 2010 [facility] [place] [facility] [address] [id number] [place] [address] 14 Sep, 2010 [facility] [place] [facility] [address] [id number] [place] [address] 17 Jul, 2010 [facility] [address] [id number] [place] [address] 16 Jul, 2010 [facility] [address] [id number] [place] [address] 31 May, 2010 [facility] [address] [id number] [place] [address] 27 May, 2010 [facility] [address] [id number] [place] [address] 08 May, 2010 [facility] [address] [id number] [place] [address], [place] [address] May, [facility] [address] [id number] [place] [address] Apr, [facility] [address] [id number] [place] [address] Apr, [facility] [address] [id number] [place] [address] Apr, [facility] [address] [id number] [place] [address] Apr, [facility] [address] [facility] [id number] [place] [address] Apr, [facility] [address] [id number] [place] [address] Mar, [facility] [address] [id number] [place] [address] 14 Mar, 2010 [facility] [place] [facility] [address] [id number] [place] [address] 2542 13 Mar, 2010 [facility] [place] [facility] [address] [facility] [id number] [place] [address] 12 Mar, 2010 [facility] [place] [facility] [address] [id number] [place] [address] Jan, [facility] [id number] [address] Dec, [facility] [id number] Sep, [facility] [id number] [address] May, [facility] [id number] [address] May, [facility] [id number] May, [facility] [id number] [address] Apr, [facility] [id number] [address] Apr, [facility] [id number] [address] Apr, [facility] [id number] [address] Apr, [facility] [id number] [address] Apr, [facility] [address] [id number] [address] Mar, [facility] [id number] [address] Mar, [facility] [address] [id number] [address] Jul, IMMUNIZATIONS No Known Immunizations SOCIAL HISTORY Never Assessed REASON FOR VISIT EMR-[facility] [place] PLAN OF CARE VITAL SIGNS MEDICATIONS Unknown [...] the January before. 03/2018 Hospitalization History Cellulitis-[facility] 12/20/15 Hospitalization [facility]- Abd pain 03/07/2017 Hospital[facility]- Abd pain 03/14/2017 Hospital[facility]- No bowel movement, rash 04/13/2017 Hospitalization [facility]- Abd pain r/t kidney surgery on 04/17/2017 Hospitalization [facility]- Abd pain r/t kidney surgery on 04/18/2017 Hospitalization [facility]- Lower abd pain 04/30/2017 Hospitalization History [facility]- Cannot urinate 05/30/2017 Hospitalization [facility]- Pancreatitis Sx 06/29/2017 [facility]- Stomach pain 07/22/2017 Hospitalization [facility]- Left side pain 08/12/2017 Hospitalization History [facility]- Incision site infection 08/30/2017 Hospitalization History [facility]- Post Op Seroma/Hematoma Left Abdomen. Discharged 09/04/17- Dr Daniel 09/02/2017 Hospitalization [facility]- Right shoulder and back pain 2017 Hospitalization History [facility]- Shoulder/Back pain 11/11/2017 Hospitalization History [facility]- Right shoulder blade pain 12/04/2017 Hospitalization History [facility]- C-Diff 12/13/2017 Hospitalization History C diff et MRSA 12/27/2017
--- OUTSIDE RECORDS SUMMARY | 2018-10-14 14:25 | XMS REPORT ---
Author Author Migration, Doctor Organization [facility] Address Unknown Phone Unavailable Care Team Providers Care Reaming Machine Tender Name Role Phone Migration, Doctor Unavailable Unavailable PROBLEMS Type Condition ICD9-CM Code ZCV28-AU Code Onset Dates Condition Status SNOMED Code Problem Chronic tension-type headache, intractable G44.221 Active 235891294 Problem Right carpal tunnel syndrome G56.01 Active 327122251721431 Problem Hyperlipidemia, mixed E78.2 Active 741551878 Problem Morbid (severe) obesity due to excess calories E66.01 Active 826540379 Problem FH: polycystic ovary Z84.2 Active 029636998 Problem Hirsuties L68.0 Active 216543705 Problem Asthma J45.909 Active 735825864 Problem Chronic pancreatitis K86.1 Active 385326384 Problem Trichotillomania F63.3 Active 97486109 Problem Restless leg syndrome G25.81 Active 74602033 Problem Generalized social phobia F40.11 Active 45461142 Problem Primary osteoarthritis of right knee M17.11 Active 528934970365556 Problem Atelectasis J98.11 Active 40770493 Problem History of renal cell carcinoma Z85.528 Active 400859984 Problem Obesities, morbid E66.01 Active 611074962 Problem Polydipsia R63.1 Active 77059171 Problem Nodule of left lung R91.1 Active 457896944 Problem Chronic post-traumatic stress disorder (PTSD) F43.12 Active 479026099 Problem Moderate episode of recurrent major depressive disorder F33.1 Active 511162643 Problem Chronic fatigue R53.82 Active 20237943 Problem Intestinal malabsorption, unspecified K90.9 Active 55426269 ALLERGIES No Information ENCOUNTERS Encounter Location Date Diagnosis [facility] [id number], [place] [address] Sep, [facility] [address] [facility] [id number] [address] Sep, [facility] [address], [place] [address] Sep, Lower extremity edema R60.0 [facility] [address], [place] [address] Sep, [facility] [address] [facility] [id number] [address] Sep, Lower extremity edema R60.0 and Morbid obesity E66.01 [facility] [address], [place] [address] Sep, [facility] [address] [facility] [id number], [place] [address] Sep, [facility] [address], [place] [address] Aug, [facility] [address], [place] [address] Aug, Obesities, morbid E66.01 and Morbid obesity E66.01 [facility] [address], [place] [address] Aug, [address] [address] Jul, [facility] [address], [place] [address] Jul, [facility] [address], [place] [address] Jul, [facility] [address], [place] [address] Jul, Numbness of right hand R20.0 [facility] [address], [place] [address] Jul, [facility] [address], [place] [address] Jul, Numbness of right hand R20.0 [facility] [id number] [place] [address] 04763- 3531 Jul, [facility] [id number] [place] [address] 30508- 6775 Jul, [facility] [id number] [place] [address] 27858- 2610 Jul, Right-sided thoracic back pain M54.6 [facility] [id number] [place] [address] 92902- 0179 Jul, [facility] [id number] [place] [address] 21123- 9447 Jul, [facility] [id number] [place] [address] 13763- 5506 Jul, [facility] [id number] [place] [address] 91524- 1003 Jul, [facility] [id number] [place] [address] 26376- 5263 Jun, [facility] [id number] [place] [address] 52402- 9339 Jun, Acute pain of right shoulder M25.511 ; Numbness of right hand R20.0 and Trapezius muscle spasm M62.838 [facility] [id number] [place] [address] 90528- 0020 Jun, [facility] [id number] [place] [address] 50385- 6492 Jun, [facility] [id number] [place] [address] 64465- 8355 Jun, Cough R05 ; BMI 50.0-59.9, adult Z68.43 and Morbid obesity E66.01 [facility] [id number] [place] [address] 80264- 0139 Jun, [facility] [id number] [place] [address] 20072- 6775 14 Jun, 2018 [facility] [id number] [place] [address] 13693 -0915 13 Jun, 2018 BMI 45.0-49.9, adult Z68.42 and Acute non-recurrent maxillary sinusitis J01.00 [facility] [id number] [place] [address] 54142 -0948 09 Jun, 2018 Acute sinusitis J01.90 ; Dysuria R30.0 and BMI 45.0-49.9, adult Z68.42 [facility] [id number] [place] [address] 83320- 3029 Jun, [facility] [id number] [place] [address] 61175- 0794 Jun, [facility] [id number] [place] [address] 94072- 4103 May, [facility] [id number] [place] [address] 57612- 0172 May, [facility] [id number] [place] [address] 86921- 7964 May, [facility] [id number] [place] [address] 02126- 8999 May, [facility] [id number] [place] [address] 62477- 3664 May, [facility] [id number] [place] [address] 73987- 4948 Apr, Generalized social phobia F40.11 ; Trichotillomania F63.3 ; Chronic post-traumatic stress disorder (PTSD) F43.12 and BMI 45.0-49.9, adult Z68.42 [facility] [id number] [place] [address] 49205- 3485 Apr, [facility] [id number] [place] [address] 65927- 0017 Apr, Chronic tension-type headache, intractable G44.221 [facility] [address], [place] [address] 3926 Apr, [facility] [id number] [place] [address] 49454 -6347 Mar, [facility] [id number] [place] [address] 32059 -7721 Mar, BMI 45.0-49.9, adult Z68.42 and Pimples R23.8 [facility] [id number] [place] [address] 86408- 6440 Mar, [place] [id number] [place] [address] 42068- 4718 Mar, [place] [id number] [place] [address] 68034- 8100 Mar, Decreased urination R34 ; Chronic fatigue R53.82 ; Peripheral edema R60.9 ; Diarrhea, unspecified type R19.7 ; Non-intractable vomiting with nausea, unspecified vomiting type R11.2 ; BMI 45.0-49.9, adult Z68.42 and Chronic post-traumatic stress disorder (PTSD) F43.12 [place] [address] [place] [address] 45489- 0708 Mar, Intestinal malabsorption, unspecified K90.9 ; Diarrhea, unspecified R19.7 ; Urinary urgency R39.15 ; Rectal bleeding K62.5 and Decreased urine output R34 [place] [address] [place] [address] 81492- 4659 Mar, Decreased urine output R34 [place] [id number] [place] [address] 68536- 4931 Mar, Rectal bleeding K62.5 [place] [id number] [place] [address] 96852- 9729 Mar, Rectal bleeding K62.5 [place] [id number] [place] [address] 60479- 6664 Mar, Urinary urgency R39.15 [facility] [id number] [place] [address] 07704- 0602 Mar, Urinary urgency R39.15 [facility] [id number] [place] [address] 14960- 7494 Mar, Primary osteoarthritis of right knee M17.11 and BMI 45.0- 49.9, adult Z68.42 [facility] [id number] [place] [address] 15395- 4465 Mar, [facility] [id number] [place] [address] 36134- 7907 Feb, Left upper arm pain M79.622 [facility] [id number] [place] [address] 24237- 8683 Feb, [facility] [id number] [place] [address] 82901- 1652 Jan, Acute pain of right knee M25.561 ; Right upper quadrant abdominal pain R10.11 and BMI 45.0-49.9, adult Z68.42 [facility] [id number] [place] [address] 51964- 0614 Jan, [facility] [id number] [place] [address] 63168- 1138 Jan, [facility] [id number] [place] [address] 55807- 2018 Dec, [facility] [id number] [place] [address] 06647- 2005 Dec, Intestinal malabsorption, unspecified K90.9 and Diarrhea, unspecified R19.7 [facility] [id number] [place] [address] 89357- 1644 Dec, [facility] [id number] [place] [address] 04970- 4785 23 Harshad, 2018 Strep throat J02.0 ; Intestinal malabsorption, unspecified K90.9 ; Diarrhea, unspecified R19.7 ; Postoperative seroma involving digestive system after non-digestive system procedure K91.873 ; Hyperlipidemia, mixed E78.2 and BMI 45.0-49.9, adult Z68.42 [facility] [address], [place] [address]- 9626 Dec, [facility] [id number] [place] [address] 52977- 0774 Dec, Nausea R11.0 [facility] [id number] [place] [address] 06865- 4834 Dec, [facility] [id number] [place] [address] 11878 -3776 Dec, Sore throat J02.9 ; Strep throat J02.0 and BMI 45.0-49.9, adult Z68.42 [facility] [id number] [place] [address] 04585- 2802 Dec, [facility] [id number] [place] [address] 86003- 6621 Dec, [facility] [id number] [place] [address] 90031- 8497 Dec, [facility] [address], [place] [address]- 7176 Dec, [facility] [id number] [place] [address] 11181- 9713 Dec, [facility] [address], [place] [address]- 7298 Dec, [facility] [id number] [place] [address] 50838- 4148 Dec, [facility] [address], [place] [address]- 0610 Dec, [facility] [id number] [place] [address] 22105- 1361 Dec, Clostridium difficile colitis A04.72 ; Intractable vomiting with nausea, unspecified vomiting type R11.2 and BMI 45.0-49.9, adult Z68.42 [facility] [id number] [place] [address] 78938- 5319 Dec, [facility] [id number] [place] [address] 59733- 6766 Nov, [facility] [id number] [place] [address] 32263- 4905 Nov, [facility] [id number] [place] [address] 61386- 3500 Nov, [facility] [id number] [place] [address] 61727- 4151 Nov, [facility] [id number] [place] [address] 58026 -4121 Nov, [facility] [id number] [place] [address] 98683- 7452 Nov, Hyperlipidemia, mixed E78.2 [facility] [address] [place] [address] 96358 -6369 Nov, Acute suppurative otitis media of right ear without spontaneous rupture of tympanic membrane, recurrence not specified H66.001 and BMI 45.0-49.9, adult Z68.42 [facility] [id number] [place] [address] 18499- 2631 Nov, Hyperlipidemia, mixed E78.2 [facility] [address] [place] [address] 17173- 4177 Nov, [facility] [id number] [place] [address] 87343- 7391 Nov, [facility] [address], [place] [address]- 3549 Nov, Nodule of left lung R91.1 [place] [address] [place] [address] 22847- 2641 04 Nov, 2017 Medicare annual wellness visit, [...] adult Z68.42 and Encounter for immunization Z23 [address] [address]263- 7491 October, [address] 21900- 7009 October, Nodule of left lung R91.1 [place] [address] 39705- 2041 October, Nodule of left lung R91.1 [place] [address] 92718- 3612 October, Recurrent major depressive disorder, in partial remission F33.41 ; Restless leg syndrome G25.81 ; Generalized social phobia F40.11 ; Chronic post-traumatic stress disorder (PTSD) F43.12 ; BMI 45.0-49.9, adult Z68.42 and Trichotillomania F63.3 [place] [id number] [place] [address] 97815- 0801 October, [address] 60065- 5814 Sep, Chronic fatigue R53.82 and BMI 45.0-49.9, adult Z68.42 [place] [id number] [place] [address] 56119- 9311 Aug, [address] [place] [address]- 2425 Jul, Restless leg syndrome G25.81 and B12 deficiency E53.8 [place] [id number] [place] [address] 03516- 7538 Jul, [place] [id number] [place] [address] 88065- 3637 Jul, [place] [address] 23776- 0251 Jun, [place] [id number] [place] [address] 69662- 4480 Jun, Fatigue, unspecified type R53.83 ; History of renal cell carcinoma Z85.528 ; Chronic pancreatitis K86.1 ; Restless leg syndrome G25.81 ; Dark urine R82.99 and BMI 45.0-49.9, adult Z68.42 [place] [id number] [place] [address] 71330- 6698 Jun, [place] [id number] [place] [address] 42150- 3028 Jun, [place] [id number] [place] [address] 80918- 1197 Jun, [place] [id number] [place] [address] 10705- 1162 Jun, [place] [id number] [place] [address] 10684- 2424 May, Chronic post-traumatic stress disorder (PTSD) F43.12 ; Moderate episode of recurrent major depressive disorder F33.1 ; Trichotillomania F63.3 and Generalized social phobia F40.11 [place] [id number] [place] [address] 75045- 9046 May, [place] [address] [place] [address] 09410- 4621 May, Chronic post-traumatic stress disorder (PTSD) F43.12 ; Moderate episode of recurrent major depressive disorder F33.1 ; Trichotillomania F63.3 and Generalized social phobia F40.11 [place] [address] [place] [address] 13898- 5623 May, Hyperlipidemia, mixed E78.2 ; Morbid (severe) obesity due to excess calories E66.01 ; Chronic post-traumatic stress disorder (PTSD) F43.12 ; Moderate episode of recurrent major depressive disorder F33.1 ; Trichotillomania F63.3 and Generalized social phobia F40.11 [place] [address], [place] [address]- 6804 30 Apr, 2017 [place] [id number] [place] [address] 04183- 6667 29 Apr, 2017 Hyperlipidemia, mixed E78.2 ; Morbid (severe) obesity due to excess calories E66.01 ; Chronic post-traumatic stress disorder (PTSD) F43.12 ; Moderate episode of recurrent major depressive disorder F33.1 ; Trichotillomania F63.3 and Generalized social phobia F40.11 [place] [address], [place] [address]- 1258 Apr, Trichotillomania F63.3 ; Generalized social phobia F40.11 ; Chronic post-traumatic stress disorder (PTSD) F43.12 and Moderate episode of recurrent major depressive disorder F33.1 [place] [address], [place] [address]- 2505 Apr, [place] [address], [place] [address]- 6068 Apr, [place] [address] [place] [address] 00107- 0443 Mar, Moderate episode of recurrent major depressive disorder F33.1 ; Trichotillomania F63.3 ; Chronic post-traumatic stress disorder (PTSD) F43.12 ; Generalized social phobia F40.11 and Restless leg syndrome G25.81 [place] [id number] [place] [address] 46213- 5984 Mar, [facility] [id number] [place] [address] 21812- 6286 Mar, [facility] [id number] [place] [address] 33428- 9061 Feb, Left kidney mass N28.89 [facility] [id number] [place] [address] 58384- 5321 Jan, [facility] [id number] [place] [address] 84668- 1301 Dec, Polydipsia R63.1 ; Chronic pancreatitis K86.1 and Fatigue, unspecified type R53.83 [facility] [id number] [place] [address] 71551- 9728 Nov, [facility] [id number] [place] [address] 33402- 3256 Nov, [facility] [id number] [place] [address] 60165- 2965 Nov, Headache around the eyes R51 [facility] [id number] [place] [address] 20879- 8865 Nov, [facility] [id number] [place] [address] 98076- 6272 October, STD exposure Z20.2 [facility] [id number] [place] [address] 12154- 4295 October, STD exposure Z20.2 [facility] [id number] [place] [address] 11230- 1885 October, Chronic post-traumatic stress disorder (PTSD) F43.12 ; Generalized social phobia F40.11 ; Trichotillomania F63.3 and Restless leg syndrome G25.81 [facility] [id number] [place] [address] 84600- 8818 October, [facility] [address] [place] [address] 26949- 8819 Sep, [place] [id number] [place] [address] 34249- 7557 Aug, [facility] [id number] [place] [address] 86262- 4813 Aug, [place] [id number] [place] [address] 02712- 5891 08 Aug, 2016 Neck mass R22.1 [place] [address] 69681- 0386 Aug, Atelectasis J98.11 [place] [id number] [place] [address] 12417- 8062 28 Jul, 2016 Hyperlipidemia, mixed E78.2 ; Atypical pneumonia J18.9 and Neck mass R22.1 [place] [id number] [place] [address] 38830- 7187 15 Jul, 2016 Hemoptysis R04.2 [place] [id number] [place] [address] 06462- 2343 08 Jul, 2016 Acute non-recurrent pansinusitis J01.40 ; Hemoptysis R04.2 ; Polydipsia R63.1 and Malaise R53.81 [facility] [place] [id number] [place] [address] 83613 -6608 May, Other viral agents as the cause of diseases classified elsewhere B97.89 and Acute upper respiratory infection, unspecified J06.9 [facility] [place] [id number] [place] [address] 23941 -8312 Mar, Nausea R11.0 [facility] [place] [id number] [place] [address] 21584 -3623 Dec, Hives L50.9 [place] [id number] [place] [address] 07893- 6812 Dec, [facility] [place] [address], [place] [address] -8426 10 Dec, 2015 Cutaneous abscess of limb, unspecified L02.419 ; Cellulitis of unspecified part of limb L03.119 ; Encounter for incision and drainage procedure Z01.89 and Encounter for recheck of abscess following incision and drainage Z09 [facility] [address] [address] -7686 09 Dec, 2015 Abscess of leg, right L02.415 [place] [address] [place] [id number] [place] [address] 08 Dec, 2015 Cellulitis of unspecified part of limb L03.119 and Cutaneous abscess of limb, unspecified L02.419 [place] [id number] [place] [address]8865- 6444 Dec, [place] [address] [address] [id number] [place] [address]12[address] 7601 Dec, [facility] [place] [id number] [place] [address] Aug, [place] [id number] [place] [address]- 2798 Aug, [facility] [id number] [place] [address] Jul, Pain in unspecified wrist M25.539 and Back pain, thoracic M54.6 [facility] [id number] [place] [address] Jun, Strain of right wrist, initial encounter S66.911A [place] [address] [id number] [place] [address]006- 7927 Jun, Chronic pancreatitis, unspecified pancreatitis type K86.1 ; Hirsuties L68.0 ; Morbid (severe) obesity due to excess calories E66.01 ; Chronic pancreatitis K86.1 and Asthma J45.909 [place] [address] [id number] [place] [address] 53911- 9313 May, [facility] [id number] [place] [address] [id number]- 9127 May, Hyperlipidemia, mixed E78.2 and Muscle spasm of back M62.830 [facility] [id number] [place] [address] 82132- 3816 Apr, [facility] [address] [address] Apr, Torticollis M43.6 [facility] [id number] [place] [address] 41587- 3082 Apr, Right-sided thoracic back pain M54.6 [facility] [id number] [place] [address] 36639- 6895 Mar, Rash R21 [facility] [address] [address] Mar, [facility] [id number] [place] [address] 57652- 5024 Jan, [facility] [id number] [place] [address] 01870- 7968 Dec, [facility] [id number] [place] [address] 18274- 8468 Dec, Urinary frequency 788.41 and Nocturia more than twice per night 788.43 [facility] [id number] [place] [address] 99517- 5074 Nov, [facility] [id number] [place] [address] 20257- 4939 Nov, [facility] [id number] [place] [address] 51195- 8214 Nov, Abdominal pain 789.00 [facility] [id number] [place] [address] 29451- 6067 October, TDAP DX V06.1 [facility] [id number], [place] [address] October, [facility] [address], [place] [address] October, Disturbance of skin sensation 782.0 ; Wrist pain, right 719.43 ; Hyperlipidemia 272.4 and Skin lesion of face 709.9 [facility] [id number] [place] [address], [place] [address] Sep, [facility] [address] [facility] [id number] [place] [address] 2[address] Sep, [facility] [id number] [place] [address], [place] [address] Aug, [facility] [address] [id number] [address] Aug, [facility] [address] [id number] [address] Aug, [facility] [id number], [place] [address] 23 Aug, 2014 [facility] [id number], [place] [address] Aug, [facility] [id number], [place] [address] 7775 16 Aug, 2014 [facility] [address], [place] [address] 14 Aug, 2014 [facility] [address] [id number], [place] [address] 8716 14 Aug, 2014 [facility] [id number] [id number] [address] Aug, [facility] [address] [id number], [place] [address] 8197 Aug, [facility] [id number], [place] [address] Aug, [facility] [place] [facility] [address] [id number] [place] [address] 9574 Aug, [facility] [place] [facility] [address] [id number] [place] [address]- 1814 Aug, [facility] [place] [facility] [address] [facility] [id number] [place] [address]- 5932 Aug, [facility] [place] [facility] [address] [id number] [place] [address]- 5685 Jul, [facility] [place] [facility] [address] [id number] [place] [address]- 8523 Jul, [facility] [place] [facility] [address] [id number] [place] [address]- 0148 Jul, [facility] [place] [facility] [address] [facility] [id number] [place] [address]- 2885 Jul, [facility] [place] [facility] [address] [id number] [place] [address]- 7364 Jul, [facility] [place] [facility] [address] [id number] [place] [address]- 7020 Jul, [facility] [place] [facility] [address] [facility] [id number] [place] [address]- 8491 Jun, [facility] [place] [facility] [address] [id number] [place] [address]- 8255 Jun, [facility] [place] [facility] [address] [id number], [place] [address]- 4048 Jun, [facility] [place] [facility] [address] [id number], [place] [address]- 0335 Jun, [facility] [place] [facility] [address] [id number] [place] [address]- 7716 Jun, [facility] [place] [facility] [address] [facility] [id number], [place] [address]- 7565 Jun, [facility] [place] [facility] [address] [id number] [place] [address]- 0133 15 Jun, 2014 [facility] [place] [facility] [address] [id number] [place] [address]- 8522 15 Jun, 2014 [facility] [place] [facility] [address] [id number] [place] [address] May, [facility] [place] [facility] [address] [id number] [place] [address] May, [facility] [place] [facility] [address] [id number] [place] [address]- 0879 May, [facility] [place] [facility] [address] [id number] [place] [address]- 7088 May, [facility] [place] [facility] [address] [id number] [place] [address]- 1916 May, [facility] [place] [facility] [address] [id number] [place] [address]- 2389 May, [facility] [place] [facility] [address] [id number] [place] [address]- 9437 May, [facility] [place] [facility] [address] [id number] [place] [address]- 6295 May, [facility] [place] [facility] [address] [id number] [place] [address]- 9232 May, [facility] [place] [facility] [address] [id number] [place] [address]- 7349 May, [facility] [place] [facility] [address] [id number] [place] [address]- 9426 May, [facility] [place] [facility] [address] [id number] [place] [address]- 6921 May, [facility] [place] [facility] [address] [id number] [place] [address]- 7377 Apr, [facility] [place] [facility] [address] [id number] [place] [address]- 9453 Apr, [facility] [place] [facility] [address] [id number] [place] [address]- 7004 Apr, [facility] [place] [facility] [address] [id number] [place] [address]- 8329 Apr, [facility] [place] [facility] [address] [id number] [place] [address]- 2189 Apr, [facility] [place] [facility] [address] [id number] [place] [address]- 9793 Apr, [facility] [place] [facility] [address] [id number] [place] [address]- 6742 Apr, [facility] [place] [facility] [address] [id number] [place] [address]- 5784 Apr, [facility] [place] [facility] [address] [id number] [place] [address]- 0840 Apr, [facility] [place] [facility] [address] [id number], [place] [address]- 7480 Apr, [facility] [place] [facility] [address] [id number], [place] [address]- 8739 Apr, [facility] [place] [facility] [address] [id number], [place] [address]- 2159 Apr, [facility] [place] [facility] [address] [id number], [place] [address]- 6981 Mar, [facility] [place] [facility] [address] [id number], [place] [address]- 4335 Mar, [facility] [place] [facility] [address] [id number], [place] [address]- 0097 Mar, [facility] [place] [facility] [address] [id number], [place] [address]- 6869 Mar, [facility] [place] [facility] [address] [id number], [place] [address]- 6882 Feb, [facility] [place] [facility] [address] [id number] [place] [address]- 0487 10 Feb, 2013 [facility] [place] [facility] [address] [id number] [place] [address]- 8267 05 Sep, 2013 [facility] [place] [facility] [address] [id number] [place] [address]- 6616 05 Feb, 2013 [facility] [place] [facility] [address] [id number] [place] [address]- 9610 05 Feb, 2013 [facility] [place] [facility] [address] [id number] [place] [address]- 5876 05 Feb, 2013 [facility] [place] [facility] [address] [id number] [place] [address]- 3355 Jan, [facility] [place] [facility] [address] [id number] [place] [address]- 5820 Jan, 2013 [facility] [place] [facility] [address] [id number] [place] [address]- 4500 Jan, [facility] [place] [facility] [address] [id number] [place] [address]- 5046 Jan, [facility] [place] [facility] [address] [id number] [place] [address]- 2328 Jan, [facility] [place] [facility] [address] [id number] [place] [address]- 6198 Jan, [facility] [place] [facility] [address] [id number] [place] [address]- 6292 Jan, [facility] [place] [facility] [address] [id number] [place] [address]- 5808 Jan, [facility] [place] [facility] [address] [id number] [place] [address]- 8179 Jan, [facility] [place] [facility] [address] [id number] [place] [address]- 3132 Jan, [facility] [place] [facility] [address] [id number] [place] [address]- 2837 Jan, [facility] [place] [facility] [address] [id number] [place] [address]- 5686 Jan, [facility] [place] [facility] [address] [id number] [place] [address]- 5053 Jan, [facility] [place] [facility] [address] [id number] [place] [address]- 0889 Jan, [facility] [place] [facility] [address] [id number] [place] [address]- 3032 Dec, [facility] [place] [facility] [address] [id number] [place] [address]- 5445 Dec, [facility] [place] [facility] [address] [id number] [place] [address]- 0558 Dec, [facility] [place] [facility] [address] [id number] [place] [address]- 5067 Dec, [facility] [place] [facility] [address] [id number] [place] [address]- 8371 Nov, [facility] [place] [facility] [address] [id number] [place] [address]- 5093 Nov, [facility] [place] [facility] [address] [id number] [place] [address]- 5081 Nov, [facility] [place] [facility] [address] [id number] [place] [address]- 4968 Nov, [facility] [place] [facility] [address] [id number] [place] [address]- 2101 Nov, [facility] [place] [facility] [address] [id number] [place] [address]- 8413 October, [facility] [place] [facility] [address] [id number] [place] [address]- 1190 October, [facility] [place] [facility] [address] [id number] [place] [address]- 4805 October, [facility] [place] [facility] [address] [id number] [place] [address]- 4267 October, [facility] [place] [facility] [address] [id number] [place] [address]- 5996 October, [facility] [place] [facility] [address] [id number] [place] [address]- 3423 October, [facility] [place] [facility] [address] [id number] [place] [address]- 6605 October, [facility] [place] [facility] [address] [id number] [place] [address]- 9827 October, [facility] [place] [facility] [address] [id number] [place] [address]- 9169 October, [facility] [place] [facility] [address] [id number] [place] [address]- 3666 October, [facility] [place] [facility] [address] [id number] [place] [address]- 6462 October, [facility] [place] [facility] [address] [id number] [place] [address]- 4841 October, [facility] [place] [facility] [address] [id number] [place] [address]- 4945 October, [facility] [place] [facility] [address] [id number] [place] [address]- 6627 October, [facility] [place] [facility] [address] [id number] [place] [address]- 0472 Sep, [facility] [place] [facility] [address] [id number] [place] [address]- 3828 Sep, [facility] [place] [facility] [address] [id number] [place] [address]- 5294 Sep, [facility] [place] [facility] [address] [id number] [place] [address]- 1071 Sep, [facility] [place] [facility] [address] [id number] [place] [address]- 2146 Sep, [facility] [place] [facility] [address] [id number] [place] [address]- 2929 Sep, [facility] [place] [facility] [address] [id number] [place] [address]- 9470 Sep, [facility] [place] [facility] [address] [id number] [place] [address]- 6676 Sep, [facility] [place] [facility] [address] [id number] [place] [address]- 8333 Sep, [facility] [place] [facility] [address] [id number] [place] [address]- 2720 Sep, [facility] [place] [facility] [address] [id number] [place] [address]- 5719 Sep, [facility] [place] [facility] [address] [id number] [place] [address]- 0895 Sep, [facility] [place] [facility] [address] [id number] [place] [address]- 5519 Sep, [facility] [address] [id number] [place] [address]- 1330 Sep, [facility] [place] [facility] [address] [id number] [place] [address]- 2046 Sep, [facility] [place] [facility] [address] [id number] [place] [address]- 7314 Aug, [facility] [place] [facility] [address] [id number] [place] [address]- 9156 Aug, [facility] [place] [facility] [address] [id number] [place] [address]- 6433 Aug, [facility] [place] [facility] [address] [id number] [place] [address]- 3332 Aug, [facility] [place] [facility] [address] [id number] [place] [address]- 0182 Jul, [facility] [place] [facility] [address] [id number] [place] [address]- 9146 Jul, [facility] [address] [id number] [place] [address]- 9885 Jul, [facility] [place] [facility] [address] [id number] [place] [address]- 9196 Jul, [facility] [place] [facility] [address] [id number] [place] [address]- 9011 Jun, [facility] [place] [facility] [address] [id number] [place] [address]- 8947 Jun, [facility] [place] [facility] [address] [id number] [place] [address]- 7101 Jun, [facility] [place] [facility] [address] [id number] [place] [address]- 6976 Jun, [facility] [place] [facility] [address] [id number] [place] [address]- 3012 Jun, [facility] [place] [facility] [address] [id number] [place] [address]- 6397 Jun, [facility] [address] [id number] [place] [address]- 7888 Jun, [facility] [place] [facility] [address] [id number] [place] [address]- 2532 Jun, [facility] [address] [id number] [place] [address]- 3633 May, [facility] [place] [facility] [address] [id number] [place] [address]- 2495 May, [facility] [place] [facility] [address] [id number] [place] [address]- 0629 18 May, 2013 [facility] [place] [facility] [address] [id number] [place] [address]- 3339 18 May, 2013 [facility] [place] [facility] [address] [id number] [place] [address]- 4604 17 May, 2013 [facility] [place] [facility] [address] [id number] [place] [id number] 17 May, 2013 [facility] [address] [id number] [place] [address]- 1925 17 May, 2013 [facility] [address] [id number] [place] 2421 17 May, 2013 [facility] [address] [id number] [place] [address]- 9618 16 May, 2013 [facility] [address] [id number] [place] [address]- 1766 16 May, 2013 [facility] [address] [id number] [place] [address]- 5934 14 May, 2013 [facility] [address] [id number] [place] [address]- 4893 14 May, 2013 [facility] [address] [id number] [place] [address]- 8974 13 May, 2013 [facility] [address] [id number] [place] [address]- 2703 13 May, 2013 [facility] [address] [id number] [place] [address]- 2622 12 May, 2013 [facility] [address] [id number] [place] [address]- 7276 12 May, 2013 [facility] [address] [id number] [place] [address]- 6736 11 May, 2013 [facility] [place] [facility] [address] [id number] [place] [address]- 8953 11 May, 2013 [facility] [place] [facility] [address] [id number] [place] [address]- 7490 26 Apr, 2013 [facility] [place] [facility] [address] [id number] [place] [address]- 7772 Apr, [facility] [address] [id number] [place] 2894 Apr, [facility] [address] [id number] [place] [address]- 8312 Apr, [facility] [address] [id number] [place] [address]- 7399 27 Aug, 2012 [facility] [place] [facility] [address] [id number] [place] [address]- 9037 Aug, [facility] [address] [id number] [place] [address]- 3672 06 Aug, 2012 [facility] [address] [id number] [place] [address]- 8839 05 Aug, 2012 [facility] [place] [facility] [address] [id number] [place] [address]- 1553 Jul, [facility] [address] [id number] [place] [address]- 5184 Jun, [facility] [address] [id number] [place] [address]- 1912 Jun, [facility] [address] [id number] [place] [address]- 0268 Jun, [facility] [address] [id number] [place] [address]- 2717 Jun, [facility] [address] [id number] [place] [address]- 2410 May, [facility] [address] [id number] [place] [address]- 0997 May, [facility] [place] [facility] [address] [id number] [place] [address]- 8555 May, [facility] [place] [facility] [address] [id number] [place] [address]- 9550 May, [facility] [place] [facility] [address] [id number] [place] [address]- 8729 May, [facility] [address] [id number], [place] [address]- 3590 May, [facility] [place] [facility] [address] [id number] [place] [address]- 1691 May, [facility] [place] [facility] [address] [id number] [place] [address]- 4128 Apr, [facility] [place] [facility] [address] [id number] [place] [address]- 1605 Apr, [facility] [place] [facility] [address] [id number], [place] [address]- 6587 Apr, [facility] [place] [facility] [address] [id number] [place] [address]- 0091 Apr, [facility] [place] [facility] [address] [id number] [place] [address]- 8606 Apr, [facility] [place] [facility] [address] [id number], [place] [address]- 1551 Apr, [facility] [place] [facility] [address] [id number], [place] [address]- 7811 Apr, [facility] [place] [facility] [address] [id number], [place] [address]- 3602 Mar, [facility] [place] [facility] [address] [id number], [place] [address]- 1234 Mar, [facility] [place] [facility] [address] [id number], [place] [address]- 7566 Mar, [facility] [place] [facility] [address] [id number], [place] [address]- 3528 Mar, [facility] [place] [facility] [address] [id number], [place] [address]- 6958 Mar, [facility] [place] [facility] [address] [id number], [place] [address]- 4204 Mar, [facility] [place] [facility] [address] [id number], [place] [address]- 3661 Mar, [facility] [place] [facility] [address] [id number] [place] [address] 2546 Mar, [facility] [place] [facility] [address] [id number] [place] [address]- 2393 Mar, [facility] [place] [facility] [address] [id number] [place] [address] 2546 Mar, [facility] [place] [facility] [address] [id number] [place] [address]- 8428 Mar, [facility] [place] [facility] [address] [id number] [place] [address] 2541 Mar, [facility] [place] [facility] [address] [id number] [place] [address]- 4213 Feb, [facility] [place] [facility] [address] [id number] [place] [address]- 8440 Jan, [facility] [place] [facility] [address] [id number] [place] [address]- 5530 Jan, [facility] [place] [facility] [address] [id number] [place] [address]- 7773 Jan, [facility] [place] [facility] [address] [id number] [place] [address]- 9197 Jan, [facility] [place] [facility] [address] [id number] [place] [address]- 4081 Jan, [facility] [place] [facility] [address] [id number] [place] [address]- 3297 Dec, [facility] [place] [facility] [address] [id number] [place] [address]- 2547 Dec, [facility] [place] [facility] [address] [id number] [place] [address]- 3336 Nov, [facility] [place] [facility] [address] [id number] [place] [address]- 2546 Nov, [facility] [place] [facility] [address] [id number] [place] 5359 Nov, [facility] [address] [id number] [place] [address]- 3400 October, [facility] [place] [facility] [address] [id number] [place] [address]- 2819 October, [facility] [place] [facility] [address] [id number] [place] [address]- 0851 October, [facility] [place] [facility] [address] [id number] [place] [address]- 8557 October, [facility] [address] [id number] [place] [address]- 6689 October, [facility] [place] [facility] [address] [id number] [place] [address] October, [facility] [place] [facility] [address] [id number] [place] [address] October, [facility] [place] [facility] [address] [id number] [place] [address] Sep, [facility] [place] [facility] [address] [id number] [place] [address] Sep, [facility] [place] [facility] [address] [id number] [place] [address] Sep, [facility] [place] [facility] [address] [id number] [place] [address] Sep, [facility] [place] [facility] [address] [id number] [place] [address] 24 Sep, 2011 [facility] [place] [facility] [address] [id number] [place] [address] 19 Sep, 2011 [facility] [place] [facility] [address] [id number] [place] [address] 17 Sep, 2011 [facility] [place] [facility] [address] [id number] [place] [address] 2765 16 Sep, 2011 [facility] [place] [facility] [address] [id number], [place] [address] 16 Sep, 2011 [facility] [address] [id number] [place] [address] 14 Sep, 2011 [facility] [place] [facility] [address] [id number] [place] [address] 8466 13 Sep, 2011 [facility] [place] [facility] [address] [facility] [id number] [place] [address]- [address] 10 Sep, 2011 [facility] [place] [facility] [address] [id number] [place] [address] 111[address] 09 Sep, 2011 [facility] [place] [facility] [address] [id number] [place] [address]- [address] 27 Aug, 2011 [facility] [place] [facility] [address] [facility] [id number] [place] [address]- [address] 12 Aug, 2011 [facility] [id number] [place] [address] 08 Aug, 2011 [facility] [place] [facility] [address] [id number] [place] [address]- [address] 06 Aug, 2011 [facility] [place] [facility] [address] [id number] [place] [address] 28 Jul, 2011 [facility] [place] [facility] [address] [id number] [place] [address] 22 Jul, 2011 [facility] [place] [facility] [id number] [place] [address]246 16 Jul, 2011 [facility] [place] [facility] [address] [facility] [id number] [place] [address]- 6636 15 Jul, 2011 [facility] [place] [facility] [address] [id number] [place] [address]- 1747 14 Jul, 2011 [facility] [place] [facility] [address] [facility] [id number] [place] [address]- 2770 10 Jul, 2011 [facility] [place] [facility] [address] [id number] [place] [address] 30 Jun, 2011 [facility] [place] [facility] [address] [id number] [place] [address] Jun, [facility] [place] [facility] [address] [id number] [place] [address]74 Jun, [facility] [place] [facility] [address] [id number] [place] [address] Jun, [facility] [place] [facility] [address] [id number] [place] [address] Jun, [facility] [address] [id number] [place] [address] May, [facility] [place] [facility] [address] [id number] [place] [address]- [address] May, [facility] [address] [id number] [place] [address] May, [facility] [address] [id number] [place] [address]- [address] 14 May, 2011 [facility] [place] [facility] [address] [id number] [place] [address]- 4[address] May, [facility] [address] [id number] [place] [address]- 1247 May, [facility] [place] [facility] [address] [id number] [place] [address] May, [facility] [place] [facility] [address] [id number], [place] [address] 15 Apr, 2011 [facility] [place] [facility] [address] [id number] [place] [address]- 1651 Apr, [facility] [place] [facility] [address] [id number] [place] [address]- 4660 Apr, [facility] [place] [facility] [address] [id number] [place] [address]- 8[address] 07 Apr, 2011 [facility] [place] [facility] [address] [id number], [place] [address] Apr, [facility] [place] [facility] [address] [id number] [place] [address] 67[address] Apr, [facility] [place] [facility] [address] [id number] [place] [address]- 90[address] Mar, [facility] [place] [facility] [address] [id number] [place] [address]- 78[address] Mar, [facility] [place] [facility] [address] [id number] [place] [address] 9957 Mar, [facility] [place] [facility] [address] [id number] [place] [address]- 37[address] Mar, [facility] [place] [facility] [address] [id number] [place] [address]- 59[address] Jan, [facility] [place] [facility] [address] [id number] [place] [address]- 1519 Dec, [facility] [place] [facility] [address] [id number] [place] [address] 8721 Dec, [facility] [place] [facility] [address] [facility] [id number] [place] [address]- 2843 October, [facility] [place] [facility] [address] [facility] [id number] [place] [address]- 0609 Sep, [facility] [place] [facility] [address] [id number] [place] [address]- 3571 Sep, [facility] [place] [facility] [address] [id number] [place] [address]- 5870 Jul, [facility] [place] [facility] [address] [id number] [place] [address]- 4615 16 Jul, 2010 [facility] [place] [facility] [address] [id number] [place] [address] 0204 May, [facility] [place] [facility] [address] [id number] [place] [address]- 9620 May, [facility] [place] [facility] [address] [id number] [place] [address]- 0847 08 May, 2010 [facility] [place] [facility] [address] [id number] [place] [address]- 6360 May, [facility] [place] [facility] [address] [id number] [place] [address]- 5968 Apr, [facility] [place] [facility] [address] [id number] [place] [address]- 9793 Apr, [facility] [place] [facility] [address] [id number] [place] [address] Apr, [facility] [place] [facility] [address] [id number] [place] [address] Apr, [facility] [place] [facility] [address] [id number] [place] [address] Apr, [facility] [place] [facility] [address] [id number] [place] [address] Mar, [facility] [place] [facility] [address] [id number] [place] [address] 14 Mar, 2010 [facility] [place] [facility] [address] [id number] [place] [address] Mar, [facility] [place] [facility] [address] [id number] [place] [address] Mar, [facility] [place] [facility] [address] [id number] [place] [address] Jan, [facility] [place] [facility] [address] [id number] [place] [address] 15 Dec, 2009 [facility] [place] [facility] [address] [id number] [place] [address] 10 Sep, 2009 [facility] [place] [facility] [address] [id number] [place] [address] 08 May, 2009 [facility] [place] [facility] [address] [id number] [place] [address] May, [facility] [id number] [address] May, [facility] [address] [address] Apr, [facility] [id number] [address] Apr, [facility] [id number] [place] [id number]- [address] Apr, [facility] [id number] [place] [address]- [address] Apr, [facility] [id number] [place] [address] Apr, [facility] [id number] [place] [address] 314074- [address] Mar, [facility] [id number] [place] [address]- [address] Mar, [facility] [id number], [place] [address] Jul, IMMUNIZATIONS No Known Immunizations SOCIAL HISTORY Never Assessed REASON FOR VISIT EMR-[facility] PLAN OF CARE VITAL SIGNS MEDICATIONS Unknown [...] the January before. 03/2018 Hospitalization History Cellulitis-[facility] 12/20/15 Hospitalization History [facility] [place]- Abd pain 03/07/2017 Hospitalization History [facility] [place]- Abd pain 03/14/2017 Hospitalization History [facility] [place]- No bowel movement, rash 04/13/2017 Hospitalization History [facility] [place]- Abd pain r/t kidney surgery on 04/17/2017 Hospitalization History [facility] [place]- Abd pain r/t kidney surgery on 04/18/2017 Hospitalization History [facility] [place]- Lower abd pain 04/30/2017 [facility] 05[facility]30[facility]2017 Hospitalization History [facility] [place]- Pancreatitis Sx 06/29/2017 Hospitalization History [facility] [place]- Stomach pain 07/22/2017 Hospitalization History [facility] [place]- Left side pain 08/12/2017 [facility] infection 08/30/2017 Hospitalization History [facility]- Post Op Seroma/Hematoma Left Abdomen. Discharged 09/04/17- Dr Daniel 09/02/2017 Hospitalization History [facility] [place]- Right shoulder and back pain 2017 Hospitalization History [facility] [place]- Shoulder/Back pain 11/11/2017 Hospitalization History [facility] [place]- Right shoulder blade pain 12/04/2017 Hospitalization History [facility] [place]- C-Diff 12/13/2017 Hospitalization History C diff et MRSA 12/27/2017
--- OUTSIDE RECORDS SUMMARY | 2018-10-14 14:25 | XMS REPORT ---
Author Author Migration, Doctor Organization [facility] Address Unknown Phone Unavailable Care Team Providers Care Dryerman/Woman Name Role Phone Migration, Doctor Unavailable Unavailable PROBLEMS Type Condition ICD9-CM Code BWD04-CD Code Onset Dates Condition Status SNOMED Code Problem Chronic tension-type headache, intractable G44.221 Active 940707762 Problem Right carpal tunnel syndrome G56.01 Active 841800302958023 Problem Hyperlipidemia, mixed E78.2 Active 065225522 Problem Morbid (severe) obesity due to excess calories E66.01 Active 407489313 Problem FH: polycystic ovary Z84.2 Active 154531078 Problem Hirsuties L68.0 Active 207905232 Problem Asthma J45.909 Active 764283580 Problem Chronic pancreatitis K86.1 Active 307193172 Problem Trichotillomania F63.3 Active 63020051 Problem Restless leg syndrome G25.81 Active 00976377 Problem Generalized social phobia F40.11 Active 54995573 Problem Primary osteoarthritis of right knee M17.11 Active 645014333112801 Problem Atelectasis J98.11 Active 07993798 Problem History of renal cell carcinoma Z85.528 Active 087760563 Problem Obesities, morbid E66.01 Active 061046679 Problem Polydipsia R63.1 Active 50243970 Problem Nodule of left lung R91.1 Active 941287371 Problem Chronic post-traumatic stress disorder (PTSD) F43.12 Active 043530718 Problem Moderate episode of recurrent major depressive disorder F33.1 Active 721461089 Problem Chronic fatigue R53.82 Active 18383904 Problem Intestinal malabsorption, unspecified K90.9 Active 95562080 ALLERGIES No Information ENCOUNTERS Encounter Location Date Diagnosis [facility] [id number], [place] [address] Sep, [facility] [address] [facility] [id number], [place] [address] Sep, [facility] [address], [place] [address] Sep, Lower extremity edema R60.0 [facility] [address], [place] [address] Sep, [facility] [address] [facility] [id number], [place] [address] Sep, Lower extremity edema R60.0 and Morbid obesity E66.01 [facility] [address], [place] [address] Sep, [facility] [address] [facility] [id number], [place] [address] Sep, [facility] [address], [place] [address] Aug, [facility] [address], [place] [address] Aug, Obesities, morbid E66.01 and Morbid obesity E66.01 [facility] [address], [place] [address] Aug, [address] [address] Jul, [facility] [address], [place] [address] Jul, [facility] [address], [place] [address] Jul, [facility] [address], [place] [address] 8[address] Jul, Numbness of right hand R20.0 [facility] [address], [place] [address] Jul, [facility] [address], [place] [address] Jul, Numbness of right hand R20.0 [facility] [id number] [place] [address] 11981- 3133 Jul, [facility] [id number] [place] [address] 77199- 3962 Jul, [facility] [id number] [place] [address] 41536- 8929 Jul, Right-sided thoracic back pain M54.6 [facility] [id number] [place] [address] 97183- 3320 Jul, [facility] [id number] [place] [address] 93069- 3832 Jul, [facility] [id number] [place] [address] 06301- 1517 Jul, [facility] [id number] [place] [address] 18389- 9568 Jul, [facility] [id number] [place] [address] 63190- 5298 Jun, [facility] [id number] [place] [address] 59596- 3404 Jun, Acute pain of right shoulder M25.511 ; Numbness of right hand R20.0 and Trapezius muscle spasm M62.838 [facility] [id number] [place] [address] 84913- 5068 Jun, [facility] [id number] [place] [address] 82443- 1893 Jun, [facility] [id number] [place] [address] 03206- 3280 Jun, Cough R05 ; BMI 50.0-59.9, adult Z68.43 and Morbid obesity E66.01 [facility] [id number] [place] [address] 04413- 5258 Jun, [facility] [id number] [place] [address] 66625- 3187 14 Jun, 2018 [facility] [id number] [place] [address] 65090 -6736 13 Jun, 2018 BMI 45.0-49.9, adult Z68.42 and Acute non-recurrent maxillary sinusitis J01.00 [facility] [id number] [place] [address] 87739 -7768 09 Jun, 2018 Acute sinusitis J01.90 ; Dysuria R30.0 and BMI 45.0-49.9, adult Z68.42 [facility] [id number] [place] [address] 40907- 9457 Jun, [facility] [id number] [place] [address] 31699- 9304 Jun, [facility] [id number] [place] [address] 46379- 9324 May, [facility] [id number] [place] [address] 08797- 8323 May, [facility] [id number] [place] [address] 66164- 1623 May, [facility] [id number] [place] [address] 20942- 1929 May, [facility] [id number] [place] [address] 75691- 7830 May, [facility] [id number] [place] [address] 85614- 0650 Apr, Generalized social phobia F40.11 ; Trichotillomania F63.3 ; Chronic post-traumatic stress disorder (PTSD) F43.12 and BMI 45.0-49.9, adult Z68.42 [facility] [id number] [place] [address] 89454- 0618 Apr, [facility] [id number] [place] [address] 75818- 0217 Apr, Chronic tension-type headache, intractable G44.221 [facility] [address], [place] [address] 1277 Apr, [facility] [id number] [place] [address] 85309 -6856 Mar, [facility] [id number] [place] [address] 97220 -6493 Mar, BMI 45.0-49.9, adult Z68.42 and Pimples R23.8 [facility] [id number] [place] [address] 42612- 8283 Mar, [facility] [id number] [place] [address] 29600- 3601 Mar, [facility] [id number] [place] [address] 20399- 5431 Mar, Decreased urination R34 ; Chronic fatigue R53.82 ; Peripheral edema R60.9 ; Diarrhea, unspecified type R19.7 ; Non-intractable vomiting with nausea, unspecified vomiting type R11.2 ; BMI 45.0-49.9, adult Z68.42 and Chronic post-traumatic stress disorder (PTSD) F43.12 [id number] [place] [address] 11074- 1810 Mar, Intestinal malabsorption, unspecified K90.9 ; Diarrhea, unspecified R19.7 ; Urinary urgency R39.15 ; Rectal bleeding K62.5 and Decreased urine output R34 [place] [id number] [place] [address] 13537- 8869 Mar, Decreased urine output R34 [facility] [id number] [place] [address] 21144- 0321 Mar, Rectal bleeding K62.5 [facility] [id number] [place] [address] 08714- 4051 Mar, Rectal bleeding K62.5 [place] [id number] [place] [address] 29121- 0228 Mar, Urinary urgency R39.15 [facility] [id number] [place] [address] 35957- 5364 Mar, Urinary urgency R39.15 [facility] [id number] [place] [address] 84103- 9870 Mar, Primary osteoarthritis of right knee M17.11 and BMI 45.0- 49.9, adult Z68.42 [facility] [id number] [place] [address] 54785- 8193 Mar, [facility] [id number] [place] [address] 46291- 9127 Feb, Left upper arm pain M79.622 [facility] [id number] [place] [address] 00315- 9998 Feb, [facility] [id number] [place] [address] 46205- 2501 Jan, Acute pain of right knee M25.561 ; Right upper quadrant abdominal pain R10.11 and BMI 45.0-49.9, adult Z68.42 [facility] [id number] [place] [address] 82424- 9220 Jan, [facility] [id number] [place] [address] 07800- 0731 Jan, [facility] [id number] [place] [address] 21041- 9023 Dec, [facility] [id number] [place] [address] 99770- 3679 Dec, Intestinal malabsorption, unspecified K90.9 and Diarrhea, unspecified R19.7 [facility] [id number] [place] [address] 73184- 0889 Dec, [facility] [id number] [place] [address] 18596- 3206 23 Harshad, 2018 Strep throat J02.0 ; Intestinal malabsorption, unspecified K90.9 ; Diarrhea, unspecified R19.7 ; Postoperative seroma involving digestive system after non-digestive system procedure K91.873 ; Hyperlipidemia, mixed E78.2 and BMI 45.0-49.9, adult Z68.42 [facility] [address], [place] [address]- 5759 Dec, [facility] [id number] [place] [address] 03429- 4190 Dec, Nausea R11.0 [facility] [id number] [place] [address] 09401- 4358 Dec, [facility] [id number] [place] [address] 10789 -3512 Dec, Sore throat J02.9 ; Strep throat J02.0 and BMI 45.0-49.9, adult Z68.42 [facility] [id number] [place] [address] 55576- 8563 Dec, [facility] [id number] [place] [address] 69380- 2413 Dec, [facility] [id number] [place] [address] 00104- 8463 Dec, [facility] [address], [place] [address]- 0938 Dec, [facility] [id number] [place] [address] 99839- 1256 Dec, [facility] [address], [place] [address]- 3578 Dec, [facility] [id number] [place] [address] 51981- 3318 Dec, [facility] [address], [place] [address]- 8845 Dec, [facility] [id number] [place] [address] 24451- 6031 Dec, Clostridium difficile colitis A04.72 ; Intractable vomiting with nausea, unspecified vomiting type R11.2 and BMI 45.0-49.9, adult Z68.42 [facility] [id number] [place] [address] 86788- 3277 Dec, [facility] [id number] [place] [address] 75289- 3882 Nov, [facility] [id number] [place] [address] 22790- 6808 Nov, [facility] [id number] [place] [address] 11512- 1510 Nov, [facility] [id number] [place] [address] 45821- 0673 Nov, [facility] IN [facility] [id number] [place] [address] 05304 -9772 Nov, [facility] [id number] [place] [address] 49260- 1471 Nov, Hyperlipidemia, mixed E78.2 [facility] IN [facility] [id number] [place] [address] 93019 -5822 Nov, Acute suppurative otitis media of right ear without spontaneous rupture of tympanic membrane, recurrence not specified H66.001 and BMI 45.0-49.9, adult Z68.42 [facility] [id number] [place] [address] 48146- 2578 Nov, Hyperlipidemia, mixed E78.2 [facility] [address] [place] [address] 70324- 9352 Nov, [facility] [id number] [place] [address] 71126- 1265 Nov, [facility] [address], [place] [address]- 2022 Nov, Nodule of left lung R91.1 [place] [id number] [place] [address] 56268- 2084 04 Nov, 2017 Medicare annual wellness visit, [...] adult Z68.42 and Encounter for immunization Z23 [address] 9[address]82- 1582 October, [address] 47724- 3768 October, Nodule of left lung R91.1 [place] [address] 54452- 0072 October, Nodule of left lung R91.1 [place] [place] [address] 11492- 0577 October, Recurrent major depressive disorder, in partial remission F33.41 ; Restless leg syndrome G25.81 ; Generalized social phobia F40.11 ; Chronic post-traumatic stress disorder (PTSD) F43.12 ; BMI 45.0-49.9, adult Z68.42 and Trichotillomania F63.3 [facility] [place] [id number] [place] [address] 17922- 7819 October, [address] 89859- 6355 Sep, Chronic fatigue R53.82 and BMI 45.0-49.9, adult Z68.42 [facility] [id number] [place] [address] 09575- 3829 Aug, [address] [place] [address]- 6604 Jul, Restless leg syndrome G25.81 and B12 deficiency E53.8 [facility] [id number] [place] [address] 25871- 0124 Jul, [place] [id number] [place] [address] 62043- 8200 Jul, [place] [address] 98300- 8677 Jun, [place] [id number] [place] [address] 43503- 2841 Jun, Fatigue, unspecified type R53.83 ; History of renal cell carcinoma Z85.528 ; Chronic pancreatitis K86.1 ; Restless leg syndrome G25.81 ; Dark urine R82.99 and BMI 45.0-49.9, adult Z68.42 [place] [id number] [place] [address] 08421- 2074 Jun, [facility] [place] [id number] [place] [address] 41461- 5655 Jun, [place] [id number] [place] [address] 50417- 9221 Jun, [facility] [place] [id number] [place] [address] 25696- 5526 Jun, [place] [id number] [place] [address] 47842- 8439 May, Chronic post-traumatic stress disorder (PTSD) F43.12 ; Moderate episode of recurrent major depressive disorder F33.1 ; Trichotillomania F63.3 and Generalized social phobia F40.11 [place] [id number] [place] [address] 98057- 6947 May, [place] [address] [place] [address] 26216- 6951 May, Chronic post-traumatic stress disorder (PTSD) F43.12 ; Moderate episode of recurrent major depressive disorder F33.1 ; Trichotillomania F63.3 and Generalized social phobia F40.11 [place] [address] [place] [address] 15737- 9254 May, Hyperlipidemia, mixed E78.2 ; Morbid (severe) obesity due to excess calories E66.01 ; Chronic post-traumatic stress disorder (PTSD) F43.12 ; Moderate episode of recurrent major depressive disorder F33.1 ; Trichotillomania F63.3 and Generalized social phobia F40.11 [place] [address], [place] [address]- 5063 30 Apr, 2017 [place] [id number] [place] [address] 65022- 1431 29 Apr, 2017 Hyperlipidemia, mixed E78.2 ; Morbid (severe) obesity due to excess calories E66.01 ; Chronic post-traumatic stress disorder (PTSD) F43.12 ; Moderate episode of recurrent major depressive disorder F33.1 ; Trichotillomania F63.3 and Generalized social phobia F40.11 [place] [address], [place] [address]- 3557 Apr, Trichotillomania F63.3 ; Generalized social phobia F40.11 ; Chronic post-traumatic stress disorder (PTSD) F43.12 and Moderate episode of recurrent major depressive disorder F33.1 [place] [address], [place] [address]- 9841 Apr, [place] [address], [place] [address]- 0613 Apr, [place] [id number] [place] [address] 03401- 3331 Mar, Moderate episode of recurrent major depressive disorder F33.1 ; Trichotillomania F63.3 ; Chronic post-traumatic stress disorder (PTSD) F43.12 ; Generalized social phobia F40.11 and Restless leg syndrome G25.81 [place] [id number] [place] [address] 76952- 5837 Mar, [facility] [id number] [place] [address] 17402- 6629 Mar, [facility] [id number] [place] [address] 01645- 0812 Feb, Left kidney mass N28.89 [facility] [id number] [place] [address] 57765- 7963 Jan, [facility] [id number] [place] [address] 88616- 0742 Dec, Polydipsia R63.1 ; Chronic pancreatitis K86.1 and Fatigue, unspecified type R53.83 [facility] [id number] [place] [address] 86182- 2532 Nov, [facility] [id number] [place] [address] 50379- 5848 Nov, [facility] [id number] [place] [address] 83278- 2904 Nov, Headache around the eyes R51 [facility] [id number] [place] [address] 20734- 6356 Nov, [facility] [id number] [place] [address] 49500- 0451 October, STD exposure Z20.2 [facility] [id number] [place] [address] 17832- 3512 October, STD exposure Z20.2 [facility] [id number] [place] [address] 06854- 9505 October, Chronic post-traumatic stress disorder (PTSD) F43.12 ; Generalized social phobia F40.11 ; Trichotillomania F63.3 and Restless leg syndrome G25.81 [facility] [id number] [place] [address] 18401- 1191 October, [facility] [id number] [place] [address] 98076- 8796 Sep, [place] [id number] [place] [address] 65508- 2453 Aug, [facility] [id number] [place] [address] 15447- 9664 Aug, [place] [id number] [place] [address] 95845- 3542 08 Aug, 2016 Neck mass R22.1 [place] [address] 45377- 0254 Aug, Atelectasis J98.11 [place] [id number] [place] [address] 40322- 3818 28 Jul, 2016 Hyperlipidemia, mixed E78.2 ; Atypical pneumonia J18.9 and Neck mass R22.1 [place] [id number] [place] [address] 80568- 8762 15 Jul, 2016 Hemoptysis R04.2 [place] [id number] [place] [address] 92182- 6996 08 Jul, 2016 Acute non-recurrent pansinusitis J01.40 ; Hemoptysis R04.2 ; Polydipsia R63.1 and Malaise R53.81 [facility] [place] [id number] [place] [address] 10168 -5394 May, Other viral agents as the cause of diseases classified elsewhere B97.89 and Acute upper respiratory infection, unspecified J06.9 [facility] [place] [id number] [place] [address] 40615 -9664 Mar, Nausea R11.0 [facility] [place] [id number] [place] [address] 28731 -7755 Dec, Hives L50.9 [place] [address] [place] [id number] [place] [address]44- 9038 Dec, [facility] WALK IN [place] [id number], [place] [address] 10 Dec, 2015 Cutaneous abscess of limb, unspecified L02.419 ; Cellulitis of unspecified part of limb L03.119 ; Encounter for incision and drainage procedure Z01.89 and Encounter for recheck of abscess following incision and drainage Z09 [facility] WALK IN [id number], [place] [address] 09 Dec, 2015 Abscess of leg, right L02.415 [place] [address] [place] [id number] [place] [address] 32641- [address]67 08 Dec, 2015 Cellulitis of unspecified part of limb L03.119 and Cutaneous abscess of limb, unspecified L02.419 [place] [id number] [place] [address]- 6239 Dec, [place] [address] [place] [id number] [place] [address] 76179- 5015 Dec, [facility] W[facility] [place] [address] [id number] [place] [address] Aug, [place] [address] [place] [id number] [place] [address] 84949- 0141 Aug, [facility] WALK IN [id number] [place] [address] Jul, Pain in unspecified wrist M25.539 and Back pain, thoracic M54.6 [facility] WALK IN [id number] [place] [address] Jun, Strain of right wrist, initial encounter S66.911A [place] [address] [place] [id number] [place] [address] 21484- 5240 Jun, Chronic pancreatitis, unspecified pancreatitis type K86.1 ; Hirsuties L68.0 ; Morbid (severe) obesity due to excess calories E66.01 ; Chronic pancreatitis K86.1 and Asthma J45.909 [place] [address] [place] [id number] [place] [address] 08920- 6230 May, [facility] [address] [place] [id number] [place] [address] 213547- 8626 May, Hyperlipidemia, mixed E78.2 and Muscle spasm of back M62.830 [facility] [address] [place] [id number] [place] [address] 48421- 9306 Apr, [facility] [address] [address] Apr, Torticollis M43.6 [facility] [address] [place] [id number] [place] [address] 73278- 5132 Apr, Right-sided thoracic back pain M54.6 [facility] [address] [place] [id number] [place] [address] 79431- 5266 Mar, Rash R21 [facility] [address] [address]- [address] Mar, [facility] [address] [place] [id number] [place] [address] 91860- 5053 Jan, [facility] [id number] [place] [address]338- 5984 Dec, [facility] [id number] [place] [address] 39520- 6216 Dec, Urinary frequency 788.41 and Nocturia more than twice per night 788.43 [facility] [id number] [place] [address] 66551- 3295 Nov, [facility] [id number] [place] [address] 65013- 1728 Nov, [facility] [id number] [place] [address] 47106- 4324 Nov, Abdominal pain 789.00 [facility] [id number] [place] [address] 76467- 5380 October, TDAP DX V06.1 [facility] [address] [id number] [address] October, [facility] [id number], [place] [address] October, Disturbance of skin sensation 782.0 ; Wrist pain, right 719.43 ; Hyperlipidemia 272.4 and Skin lesion of face 709.9 [facility] [id number] [place] [address], [place] [address]- 6[address] Sep, [facility] [address] [facility] [id number] [place] [address]- 4694 Sep, [facility] [id number] [place] [address], [place] [address]- 0214 Aug, [facility] [address] [id number] [address] 8151 Aug, [facility] [address] [id number] [address] 6534 Aug, [facility] [id number] [address]- 4828 23 Aug, 2014 [facility] [id number], [place] [address] 8440 Aug, [facility] [id number], [place] [address]- 7103 16 Aug, 2014 [facility] [id number], [place] [address]- 7799 14 Aug, 2014 [facility] [address] [id number], [place] [address] 5347 14 Aug, 2014 [facility] [id number] 4847 Aug, [facility] [address] [id number], [place] [address]- 7256 Aug, [facility] [id number], [place] [address]- 0846 Aug, [facility] [place] [facility] [address] [id number] [place] [address]- 2036 Aug, [facility] [place] [facility] [address] [id number] [place] [address]- 4084 Aug, [facility] [place] [facility] [address] [facility] [id number] [place] [address]- 2248 Aug, [facility] [place] [facility] [address] [id number] [place] [address]- 1071 Jul, [facility] [place] [facility] [address] [id number] [place] [address]- 6185 Jul, [facility] [place] [facility] [address] [id number] [place] [address]- 6567 Jul, [facility] [place] [facility] [address] [facility] [id number] [place] [address]- 3810 Jul, [facility] [place] [facility] [address] [id number] [place] [address]- 2173 Jul, [facility] [place] [facility] [address] [id number] [place] [address]- 3332 Jul, [facility] [place] [facility] [address] [facility] [id number] [place] [address]- 1838 Jun, [facility] [place] [facility] [address] [id number] [place] [address]- 8004 Jun, [facility] [place] [facility] [address] [id number], [place] [address]- 6077 Jun, [facility] [place] [facility] [address] [id number], [place] [address]- 2987 Jun, [facility] [place] [facility] [address] [id number] [place] [address]- 6780 Jun, [facility] [place] [facility] [address] [facility] [id number], [place] [address]- 3972 Jun, [facility] [place] [facility] [address] [id number] [place] [address]- 5302 15 Jun, 2014 [facility] [place] [facility] [address] [id number] [place] [address]- 0586 15 Jun, 2014 [facility] [place] [facility] [address] [id number] [place] 7862 May, [facility] [place] [facility] [address] [id number] [place] 7094 May, [facility] [place] [facility] [address] [id number] [place] [address]- 0712 May, [facility] [place] [facility] [address] [id number] [place] [address]- 6533 May, [facility] [place] [facility] [address] [id number] [place] [address]- 2932 May, [facility] [place] [facility] [address] [id number] [place] [address]- 3680 May, [facility] [place] [facility] [address] [id number] [place] [address]- 2901 May, [facility] [place] [facility] [address] [id number] [place] [address]- 7966 May, [facility] [place] [facility] [address] [id number] [place] [address]- 3974 May, [facility] [place] [facility] [address] [id number] [place] [address]- 9126 May, [facility] [place] [facility] [address] [id number] [place] [address]- 8143 May, [facility] [place] [facility] [address] [id number] [place] [address]- 6965 May, [facility] [place] [facility] [address] [id number] [place] [address]- 3909 Apr, [facility] [place] [facility] [address] [id number] [place] [address]- 4381 Apr, [facility] [place] [facility] [address] [id number] [place] [address]- 8461 Apr, [facility] [place] [facility] [address] [id number] [place] [address]- 9302 Apr, [facility] [place] [facility] [address] [id number] [place] [address]- 7096 Apr, [facility] [place] [facility] [address] [id number] [place] [address]- 0697 Apr, [facility] [place] [facility] [address] [id number] [place] [address]- 9426 Apr, [facility] [place] [facility] [address] [id number] [place] [address]- 3593 Apr, [facility] [place] [facility] [address] [id number] [place] [address]- 4993 Apr, [facility] [place] [facility] [address] [id number], [place] [address]- 0306 Apr, [facility] [place] [facility] [address] [id number], [place] [address]- 9844 Apr, [facility] [place] [facility] [address] [id number], [place] [address]- 5147 Apr, [facility] [place] [facility] [address] [id number], [place] [address]- 4814 Mar, [facility] [place] [facility] [address] [id number], [place] [address]- 7671 Mar, [facility] [place] [facility] [address] [id number], [place] [address]- 5665 Mar, [facility] [place] [facility] [address] [id number], [place] [address]- 8395 Mar, [facility] [place] [facility] [address] [id number], [place] [address]- 0287 Feb, [facility] [place] [facility] [address] [id number] [place] [address]- 6308 10 Feb, 2013 [facility] [place] [facility] [address] [id number] [place] [address]- 3279 05 Sep, 2013 [facility] [place] [facility] [address] [id number] [place] [address]- 8146 05 Feb, 2013 [facility] [place] [facility] [address] [id number] [place] [address]- 3968 05 Feb, 2013 [facility] [place] [facility] [address] [id number] [place] [address]- 7779 05 Feb, 2013 [facility] [place] [facility] [address] [id number] [place] [address]- 9739 Jan, [facility] [place] [facility] [address] [id number] [place] [address]- 6528 Jan, 2013 [facility] [place] [facility] [address] [id number] [place] [address]- 5382 Jan, [facility] [place] [facility] [address] [id number] [place] [address]- 3523 Jan, [facility] [place] [facility] [address] [id number] [place] [address]- 8216 Jan, [facility] [place] [facility] [address] [id number] [place] [address]- 3409 Jan, [facility] [place] [facility] [address] [id number] [place] [address]- 4787 Jan, [facility] [place] [facility] [address] [id number] [place] [address]- 0929 Jan, [facility] [place] [facility] [address] [id number] [place] [address]- 4151 Jan, [facility] [place] [facility] [address] [id number] [place] [address]- 7274 Jan, [facility] [place] [facility] [address] [id number] [place] [address]- 7229 Jan, [facility] [place] [facility] [address] [id number] [place] [address]- 3538 Jan, [facility] [place] [facility] [address] [id number] [place] [address]- 1676 Jan, [facility] [place] [facility] [address] [id number] [place] [address]- 8693 Jan, [facility] [place] [facility] [address] [id number] [place] [address]- 1756 Dec, [facility] [place] [facility] [address] [id number] [place] [address]- 7915 Dec, [facility] [place] [facility] [address] [id number] [place] [address]- 3074 Dec, [facility] [place] [facility] [address] [id number] [place] [address]- 9457 Dec, [facility] [place] [facility] [address] [id number] [place] [address]- 1234 Nov, [facility] [place] [facility] [address] [id number] [place] [address]- 4020 Nov, [facility] [place] [facility] [address] [id number] [place] [address]- 2493 Nov, [facility] [place] [facility] [address] [id number] [place] [address]- 7664 Nov, [facility] [place] [facility] [address] [id number] [place] [address]- 8316 Nov, [facility] [place] [facility] [address] [id number] [place] [address]- 9732 October, [facility] [place] [facility] [address] [id number] [place] [address]- 7798 October, [facility] [place] [facility] [address] [id number] [place] [address]- 0182 October, [facility] [place] [facility] [address] [id number] [place] [address]- 4094 October, [facility] [place] [facility] [address] [id number] [place] [address]- 4039 October, [facility] [place] [facility] [address] [id number] [place] [address]- 2992 October, [facility] [place] [facility] [address] [id number] [place] [address]- 1490 October, [facility] [place] [facility] [address] [id number] [place] [address]- 1847 October, [facility] [place] [facility] [address] [id number] [place] [address]- 3804 October, [facility] [place] [facility] [address] [id number] [place] [address]- 6464 October, [facility] [place] [facility] [address] [id number] [place] [address]- 8900 October, [facility] [place] [facility] [address] [id number] [place] [address]- 1799 October, [facility] [place] [facility] [address] [id number] [place] [address]- 0245 October, [facility] [place] [facility] [address] [id number] [place] [address]- 1012 October, [facility] [place] [facility] [address] [id number] [place] [address]- 1761 Sep, [facility] [place] [facility] [address] [id number] [place] [address]- 0519 Sep, [facility] [place] [facility] [address] [id number] [place] [address]- 3302 Sep, [facility] [place] [facility] [address] [id number] [place] [address]- 7135 Sep, [facility] [place] [facility] [address] [id number] [place] [address]- 0776 Sep, [facility] [place] [facility] [address] [id number] [place] [address]- 5145 Sep, [facility] [place] [facility] [address] [id number] [place] [address]- 1469 Sep, [facility] [place] [facility] [address] [id number] [place] [address]- 2206 Sep, [facility] [place] [facility] [address] [id number] [place] [address]- 5031 Sep, [facility] [place] [facility] [address] [id number] [place] [address]- 7130 Sep, [facility] [place] [facility] [address] [id number] [place] [address]- 9727 Sep, [facility] [place] [facility] [address] [id number] [place] [address]- 8011 Sep, [facility] [place] [facility] [address] [id number] [place] [address]- 9605 Sep, [facility] [address] [id number] [place] [address]- 1744 Sep, [facility] [place] [facility] [address] [id number] [place] [address]- 1553 Sep, [facility] [place] [facility] [address] [id number] [place] [address]- 5840 Aug, [facility] [place] [facility] [address] [id number] [place] [address]- 2927 Aug, [facility] [place] [facility] [address] [id number] [place] [address]- 0337 Aug, [facility] [place] [facility] [address] [id number] [place] [address]- 6338 Aug, [facility] [place] [facility] [address] [id number] [place] [address]- 9645 Jul, [facility] [place] [facility] [address] [id number] [place] [address]- 9588 Jul, [facility] [address] [id number] [place] [address]- 0352 Jul, [facility] [place] [facility] [address] [id number] [place] [address]- 6996 Jul, [facility] [place] [facility] [address] [id number] [place] [address]- 3198 Jun, [facility] [place] [facility] [address] [id number] [place] [address]- 6356 Jun, [facility] [place] [facility] [address] [id number] [place] [address]- 9826 Jun, [facility] [place] [facility] [address] [id number] [place] [address]- 8624 Jun, [facility] [place] [facility] [address] [id number] [place] [address]- 9208 Jun, [facility] [place] [facility] [address] [id number] [place] [address]- 5579 Jun, [facility] [address] [id number] [place] [address]- 8341 Jun, [facility] [place] [facility] [address] [id number] [place] [address]- 8053 Jun, [facility] [address] [id number] [place] [address]- 9695 May, [facility] [place] [facility] [address] [id number] [place] [address]- 0845 May, [facility] [place] [facility] [address] [id number] [place] [address]- 9014 18 May, 2013 [facility] [place] [facility] [address] [id number] [place] [address]- 5942 18 May, 2013 [facility] [place] [facility] [address] [id number] [place] [address]- 0009 17 May, 2013 [facility] [place] [facility] [address] [id number] [place] [id number] 17 May, 2013 [facility] [address] [id number] [place] [address]- 4439 17 May, 2013 [facility] [address] [id number] [place] 5577 17 May, 2013 [facility] [address] [id number] [place] [address]- 9409 16 May, 2013 [facility] [address] [id number] [place] [address]- 6069 16 May, 2013 [facility] [address] [id number] [place] [address]- 1114 14 May, 2013 [facility] [address] [id number] [place] [address]- 2337 14 May, 2013 [facility] [address] [id number] [place] [address]- 5007 13 May, 2013 [facility] [address] [id number] [place] [address]- 4675 13 May, 2013 [facility] [address] [id number] [place] [address]- 9323 12 May, 2013 [facility] [address] [id number] [place] [address]- 8374 12 May, 2013 [facility] [address] [id number] [place] [address]- 6031 11 May, 2013 [facility] [place] [facility] [address] [id number] [place] [address]- 1429 11 May, 2013 [facility] [place] [facility] [address] [id number] [place] [address]- 6347 26 Apr, 2013 [facility] [place] [facility] [address] [id number] [place] [address]- 1111 Apr, [facility] [address] [id number] [place] 6293 Apr, [facility] [address] [id number] [place] [address]- 9090 Apr, [facility] [address] [id number] [place] [address]- 9156 27 Aug, 2012 [facility] [place] [facility] [address] [id number] [place] [address]- 0428 Aug, [facility] [address] [id number] [place] [address]- 4240 06 Aug, 2012 [facility] [address] [id number] [place] [address]- 5567 05 Aug, 2012 [facility] [place] [facility] [address] [id number] [place] [address]- 5730 Jul, [facility] [address] [id number] [place] [address]- 3712 Jun, [facility] [address] [id number] [place] [address]- 8009 Jun, [facility] [address] [id number] [place] [address]- 6640 Jun, [facility] [address] [id number] [place] [address]- 6921 Jun, [facility] [address] [id number] [place] [address]- 8301 May, [facility] [address] [id number] [place] [address]- 1309 May, [facility] [place] [facility] [address] [id number] [place] [address]- 5968 May, [facility] [place] [facility] [address] [id number] [place] [address]- 8785 May, [facility] [place] [facility] [address] [id number] [place] [address]- 4560 May, [facility] [address] [id number], [place] [address]- 8686 May, [facility] [place] [facility] [address] [id number] [place] [address]- 0495 May, [facility] [place] [facility] [address] [id number] [place] [address]- 0516 Apr, [facility] [place] [facility] [address] [id number] [place] [address]- 0614 Apr, [facility] [place] [facility] [address] [id number], [place] [address]- 4737 Apr, [facility] [place] [facility] [address] [id number] [place] [address]- 4599 Apr, [facility] [place] [facility] [address] [id number] [place] [address]- 1891 Apr, [facility] [place] [facility] [address] [id number], [place] [address]- 7996 Apr, [facility] [place] [facility] [address] [id number], [place] [address]- 4677 Apr, [facility] [place] [facility] [address] [id number], [place] [address] Mar, [facility] [place] [facility] [address] [id number], [place] [address] Mar, [facility] [place] [facility] [address] [id number], [place] [address] Mar, [facility] [place] [facility] [address] [id number], [place] [address] Mar, [facility] [place] [facility] [address] [id number], [place] [address] Mar, [facility] [place] [facility] [address] [id number], [place] [address] Mar, [facility] [place] [facility] [address] [id number], [place] [address] Mar, [facility] [place] [facility] [address] [id number] [place] [address] 2546 Mar, [facility] [place] [facility] [address] [id number] [place] [address] Mar, [facility] [place] [facility] [address] [id number] [place] [address] 2546 Mar, [facility] [place] [facility] [address] [id number] [place] [address] Mar, [facility] [place] [facility] [address] [id number] [place] [address] 2549 Mar, [facility] [place] [facility] [address] [id number] [place] [address] Feb, [facility] [place] [facility] [address] [id number] [place] [address] Jan, [facility] [place] [facility] [address] [id number] [place] [address] 95[address] Jan, [facility] [place] [facility] [address] [id number] [place] [address] Jan, [facility] [place] [facility] [address] [id number] [place] [address] Jan, [facility] [place] [facility] [address] [id number] [place] [address] Jan, [facility] [place] [facility] [address] [id number] [place] [address]- [address]157 Dec, [facility] [place] [facility] [address] [id number] [place] [address]44 Dec, [facility] [place] [facility] [address] [id number] [place] [address]76 Nov, [facility] [place] [facility] [address] [id number] [place] [address]- [address]46 Nov, [facility] [place] [facility] [address] [id number] [place] [address] Nov, [facility] [address] [id number] [place] [address] October, [facility] [place] [facility] [address] [id number] [place] [address] October, [facility] [place] [facility] [address] [id number] [place] [address] October, [facility] [place] [facility] [address] [id number] [place] [address]274 October, [facility] [address] [id number] [place] [address] October, [facility] [place] [facility] [address] [id number] [place] [address] 1005 October, [facility] [place] [facility] [address] [id number] [place] [address] 5314 October, [facility] [place] [facility] [address] [id number] [place] [address]- 4895 Sep, [facility] [place] [facility] [address] [id number] [place] [address]- 9316 Sep, [facility] [place] [facility] [address] [id number] [place] [address] 2820 Sep, [facility] [place] [facility] [address] [id number] [place] [address]- 4024 Sep, [facility] [place] [facility] [address] [id number] [place] [address] 24 Sep, 2011 [facility] [place] [facility] [address] [id number] [place] [address]- 1482 19 Sep, 2011 [facility] [place] [facility] [address] [id number] [place] [address]- 4[address] 17 Sep, 2011 [facility] [place] [facility] [address] [id number] [place] [address]- [address]80 16 Sep, 2011 [facility] [place] [facility] [address] [id number], [place] [address] 16 Sep, 2011 [facility] [address] [id number] [place] [address]- [address]408 14 Sep, 2011 [facility] [place] [facility] [address] [id number] [place] [address]- 4946 13 Sep, 2011 [facility] [place] [facility] [address] [facility] [id number] [place] [address]- [address]396 10 Sep, 2011 [facility] [place] [facility] [address] [id number] [place] [address]- [address]278 09 Sep, 2011 [facility] [place] [facility] [address] [id number] [place] [address]- 9951 27 Aug, 2011 [facility] [place] [facility] [address] [facility] [id number] [place] [address]- [address]87 12 Aug, 2011 [facility] [id number] [address] 08 Aug, 2011 [facility] [place] [facility] [address] [id number] [address]- [address] 06 Aug, 2011 [facility] [place] [facility] [address] [id number] [address]- 6436 28 Jul, 2011 [facility] [place] [facility] [address] [id number] [address]- [address] 22 Jul, 2011 [facility] [place] [facility] [id number] [address]- 2806 16 Jul, 2011 [facility] [place] [facility] [address] [facility] [id number] [place] [address]- 4967 15 Jul, 2011 [facility] [place] [facility] [address] [id number] [place] [address]- 9467 14 Jul, 2011 [facility] [place] [facility] [address] [facility] [id number] [place] [address]- 6474 10 Jul, 2011 [facility] [place] [facility] [address] [id number] [address] 30 Jun, 2011 [facility] [place] [facility] [address] [id number] [place] [address]- 1606 Jun, [facility] [place] [facility] [address] [id number] [place] [address]- 9187 Jun, [facility] [place] [facility] [address] [id number] [place] [address]- 2507 Jun, [facility] [place] [facility] [address] [id number] [place] [address]- 6625 Jun, [facility] [address] [id number] [place] [address]- 6558 May, [facility] [place] [facility] [address] [id number] [place] [address]- 9118 May, [facility] [address] [id number] [place] [address]- 5044 May, [facility] [address] [id number] [place] [address]- [address]100 14 May, 2011 [facility] [place] [facility] [address] [id number] [place] [address]- 1300 May, [facility] [address] [id number] [place] [address] May, [facility] [place] [facility] [address] [id number] [place] [address] May, [facility] [place] [facility] [address] [id number], [place] [address] 15 Apr, 2011 [facility] [place] [facility] [address] [id number] [place] [address] Apr, [facility] [place] [facility] [address] [id number] [place] [address] Apr, [facility] [place] [facility] [address] [id number] [place] [address] 07 Apr, 2011 [facility] [place] [facility] [address] [id number], [place] [address] Apr, [facility] [place] [facility] [address] [id number] [place] [address] Apr, [facility] [place] [facility] [address] [id number] [place] [address] Mar, [facility] [place] [facility] [address] [id number] [place] [address] Mar, [facility] [place] [facility] [address] [id number] [place] [address] Mar, [facility] [place] [facility] [address] [id number] [place] [address] Mar, [facility] [place] [facility] [address] [id number] [place] [address] Jan, [facility] [place] [facility] [address] [id number] [place] [address] Dec, [facility] [place] [facility] [address] [id number] [place] [address] Dec, [facility] [place] [facility] [address] [facility] [id number] [place] [address] October, [facility] [place] [facility] [address] [facility] [id number] [place] [address] Sep, [facility] [place] [facility] [address] [id number] [place] [address] Sep, [facility] [place] [facility] [address] [id number] [place] [address] Jul, [facility] [place] [facility] [address] [id number] [place] [address] 16 Jul, 2010 [facility] [place] [facility] [address] [id number] [place] [address] May, [facility] [place] [facility] [address] [id number] [place] [address] May, [facility] [place] [facility] [address] [id number] [place] [address] 08 May, 2010 [facility] [place] [facility] [address] [id number] [place] [address] May, [facility] [place] [facility] [address] [id number] [place] [address] Apr, [facility] [place] [facility] [address] [id number] [place] [address] Apr, [facility] [place] [facility] [address] [id number] [place] [address] Apr, [facility] [place] [facility] [address] [id number] [place] [address] Apr, [facility] [place] [facility] [address] [id number] [place] [address] Apr, [facility] [place] [facility] [address] [id number] [place] [address] Mar, [facility] [place] [facility] [address] [id number] [place] [address] 14 Mar, 2010 [facility] [place] [facility] [address] [id number] [place] [address] Mar, [facility] [place] [facility] [address] [id number] [place] [address] Mar, [facility] [place] [facility] [address] [id number] [place] [address] Jan, [facility] [place] [facility] [address] [id number] [place] [address] 15 Dec, 2009 [facility] [place] [facility] [address] [id number] [place] [address] 10 Sep, 2009 [facility] [place] [facility] [address] [id number] [place] [address] 08 May, 2009 [facility] [place] [facility] [address] [id number] [place] [address] May, [facility] [id number] [address] May, [facility] [id number], [place] [address] Apr, [facility] [id number] [address] Apr, [facility] [id number] [place] [address] Apr, [facility] [id number] [place] [address]- [address] Apr, [facility] [id number] [place] [address] Apr, [facility] [id number] [place] [address] 162472- [address]65 Mar, [facility] [id number] [place] [address]- [address] Mar, [facility] [id number], [place] [address] Jul, IMMUNIZATIONS No Known Immunizations SOCIAL HISTORY Never Assessed [place]ASON FOR [place]IT [place] [place] VITAL SIGNS MEDICATIONS Unknown [...] [facility] 12/20/15 Hospitalization [facility]- Abd pain 03/07/2017 Hospital[facility]- Abd pain 03/14/2017 [facility]- No bowel movement, rash 04/13/2017 Hospitalization History [facility]- Abd pain r/t kidney surgery on 04/17/2017 Hospitalization History [facility]- Abd pain r/t kidney surgery on 04/18/2017 Hospitalization History [facility]- Lower abd pain 04/30/2017 Hospitalization History [facility]- Cannot urinate 05/30/2017 Hospitalization History [facility]- Pancreatitis Sx 06/29/2017 Hospitalization History [facility]- Stomach pain 07/22/2017 Hospitalization History [facility]- Left side pain 08/12/2017 Hospitalization History [facility]- Incision site infection 08/30/2017 Hospitalization History [facility]- Post Op Seroma/Hematoma Left Abdomen. Discharged 09/04/17- Dr Daniel 09/02/2017 Hospitalization History [facility]- Right shoulder and back pain 2017 Hospitalization History [facility]- Shoulder/Back pain 11/11/2017 Hospitalization History [facility]- Right shoulder blade pain 12/04/2017 Hospitalization History [facility]- C-Diff 12/13/2017 Hospitalization History C diff et MRSA 12/27/2017
--- OUTSIDE RECORDS SUMMARY | 2018-10-14 14:26 | XMS REPORT ---
Author Author Migration, Doctor Organization [facility] Address Unknown Phone Unavailable Care Team Providers Care Elevated Work Platform Operator Name Role Phone Migration, Doctor Unavailable Unavailable PROBLEMS Type Condition ICD9-CM Code [id number] Code Onset Dates Condition Status SNOMED Code Problem Chronic tension-type headache, intractable G44.221 Active 505648533 Problem Right carpal tunnel syndrome G56.01 Active 286333575788540 Problem Hyperlipidemia, mixed E78.2 Active 176944486 Problem Morbid (severe) obesity due to excess calories E66.01 Active 678650246 Problem FH: polycystic ovary Z84.2 Active 289780478 Problem Hirsuties L68.0 Active 996890967 Problem Asthma J45.909 Active 133301235 Problem Chronic pancreatitis K86.1 Active 111467982 Problem Trichotillomania F63.3 Active 18113011 Problem Restless leg syndrome G25.81 Active 70952514 Problem Generalized social phobia F40.11 Active 13579491 Problem Primary osteoarthritis of right knee M17.11 Active 656014453556313 Problem Atelectasis J98.11 Active 93959827 Problem History of renal cell carcinoma Z85.528 Active 568652775 Problem Obesities, morbid E66.01 Active 852704950 Problem Polydipsia R63.1 Active 75465965 Problem Nodule of left lung R91.1 Active 189953207 Problem Chronic post-traumatic stress disorder (PTSD) F43.12 Active 990209557 Problem Moderate episode of recurrent major depressive disorder F33.1 Active 605866195 Problem Chronic fatigue R53.82 Active 92755614 Problem Intestinal malabsorption, unspecified K90.9 Active 71919541 ALLERGIES No Information ENCOUNTERS Encounter Location Date Diagnosis [facility] [id number], [place] [address] Sep, [facility] [address] [facility] [id number], [place] [address] Sep, [facility] [address], [place] [address] Sep, Lower extremity edema R60.0 [facility] [address], [place] [address] Sep, [facility] [address] [facility] [id number], [place] [address] Sep, Lower extremity edema R60.0 and Morbid obesity E66.01 [facility] [address], [place] [address] Sep, [facility] [address] [facility] [id number], [place] [address] Sep, [facility] [address], [place] [address] Aug, [facility] [address], [place] [address] Aug, Obesities, morbid E66.01 and Morbid obesity E66.01 [facility] [address], [place] [address] Aug, [address] [address] Jul, [facility] [address], [place] [address] Jul, [facility] [address], [place] [address] Jul, [facility] [address], [place] [address] Jul, Numbness of right hand R20.0 [facility] [address], [place] [address] Jul, [facility] [address], [place] [address] Jul, Numbness of right hand R20.0 [facility] [id number] [place] [address] 92220- 6595 Jul, [facility] [id number] [place] [address] 38908- 2246 Jul, [facility] [id number] [place] [address] 43874- 3816 Jul, Right-sided thoracic back pain M54.6 [facility] [id number] [place] [address] 18008- 0272 Jul, [facility] [id number] [place] [address] 45821- 5292 Jul, [facility] [id number] [place] [address] 88960- 1752 Jul, [facility] [id number] [place] [address] 85478- 8851 Jul, [facility] [id number] [place] [address] 38931- 8596 Jun, [facility] [id number] [place] [address] 72085- 2703 Jun, Acute pain of right shoulder M25.511 ; Numbness of right hand R20.0 and Trapezius muscle spasm M62.838 [facility] [id number] [place] [address] 18531- 7885 Jun, [facility] [id number] [place] [address] 34288- 0793 Jun, [facility] [id number] [place] [address] 76050- 6196 Jun, Cough R05 ; BMI 50.0-59.9, adult Z68.43 and Morbid obesity E66.01 [facility] [id number] [place] [address] 98537- 5663 Jun, [facility] [id number] [place] [address] 45373- 5502 14 Jun, 2018 [facility] [id number] [place] [address] 67999 -7660 13 Jun, 2018 BMI 45.0-49.9, adult Z68.42 and Acute non-recurrent maxillary sinusitis J01.00 [facility] [id number] [place] [address] 74021 -3558 09 Jun, 2018 Acute sinusitis J01.90 ; Dysuria R30.0 and BMI 45.0-49.9, adult Z68.42 [facility] [id number] [place] [address] 55302- 7513 Jun, [facility] [id number] [place] [address] 08982- 3761 Jun, [facility] [id number] [place] [address] 43654- 0045 May, [facility] [id number] [place] [address] 71743- 5294 May, [facility] [id number] [place] [address] 17926- 9845 May, [facility] [id number] [place] [address] 17872- 5388 May, [facility] [id number] [place] [address] 84636- 3895 May, [facility] [id number] [place] [address] 65335- 4592 Apr, Generalized social phobia F40.11 ; Trichotillomania F63.3 ; Chronic post-traumatic stress disorder (PTSD) F43.12 and BMI 45.0-49.9, adult Z68.42 [facility] [id number] [place] [address] 84431- 7873 Apr, [facility] [id number] [place] [address] 15998- 2699 Apr, Chronic tension-type headache, intractable G44.221 [facility] [address], [place] [address] 0756 Apr, [facility] [id number] [place] [address] 72445 -8626 Mar, [facility] [id number] [place] [address] 91070 -3365 Mar, BMI 45.0-49.9, adult Z68.42 and Pimples R23.8 [facility] [id number] [place] [address] 34702- 1788 Mar, [facility] [id number] [place] [address] 05784- 3966 Mar, [facility] [id number] [place] [address] 59177- 8226 Mar, Decreased urination R34 ; Chronic fatigue R53.82 ; Peripheral edema R60.9 ; Diarrhea, unspecified type R19.7 ; Non-intractable vomiting with nausea, unspecified vomiting type R11.2 ; BMI 45.0-49.9, adult Z68.42 and Chronic post-traumatic stress disorder (PTSD) F43.12 [id number] [place] [address] 42776- 0251 Mar, Intestinal malabsorption, unspecified K90.9 ; Diarrhea, unspecified R19.7 ; Urinary urgency R39.15 ; Rectal bleeding K62.5 and Decreased urine output R34 [id number] [place] [address] 01789- 3724 Mar, Decreased urine output R34 [address] [id number] [place] [address] 15289- 9042 Mar, Rectal bleeding K62.5 [address] [id number] [place] [address] 26790- 7725 Mar, Rectal bleeding K62.5 [facility] [id number] [place] [address] 94634- 9511 Mar, Urinary urgency R39.15 [facility] [id number] [place] [address] 00370- 9727 Mar, Urinary urgency R39.15 [facility] [id number] [place] [address] 39844- 9242 Mar, Primary osteoarthritis of right knee M17.11 and BMI 45.0- 49.9, adult Z68.42 [facility] [id number] [place] [address] 55236- 1414 Mar, [facility] [id number] [place] [address] 58107- 9877 Feb, Left upper arm pain M79.622 [facility] [id number] [place] [address] 52058- 8320 Feb, [facility] [id number] [place] [address] 89255- 1562 Jan, Acute pain of right knee M25.561 ; Right upper quadrant abdominal pain R10.11 and BMI 45.0-49.9, adult Z68.42 [facility] [id number] [place] [address] 87937- 8688 Jan, [facility] [id number] [place] [address] 45716- 6674 Jan, [facility] [id number] [place] [address] 37688- 7477 Dec, [facility] [id number] [place] [address] 98135- 1809 Dec, Intestinal malabsorption, unspecified K90.9 and Diarrhea, unspecified R19.7 [facility] [id number] [place] [address] 57905- 5038 Dec, [facility] [id number] [place] [address] 76106- 5881 23 Harshad, 2018 Strep throat J02.0 ; Intestinal malabsorption, unspecified K90.9 ; Diarrhea, unspecified R19.7 ; Postoperative seroma involving digestive system after non-digestive system procedure K91.873 ; Hyperlipidemia, mixed E78.2 and BMI 45.0-49.9, adult Z68.42 [facility] [address], [place] [address]- 9523 Dec, [facility] [id number] [place] [address] 60975- 7372 Dec, Nausea R11.0 [facility] [id number] [place] [address] 80984- 0944 Dec, [facility] [id number] [place] [address] 68283 -9096 Dec, Sore throat J02.9 ; Strep throat J02.0 and BMI 45.0-49.9, adult Z68.42 [facility] [id number] [place] [address] 82935- 0729 Dec, [facility] [id number] [place] [address] 49673- 5952 Dec, [facility] [id number] [place] [address] 98487- 7057 Dec, [facility] [address], [place] [address]- 9200 Dec, [facility] [id number] [place] [address] 23318- 9648 Dec, [facility] [address], [place] [address]- 7615 Dec, [facility] [id number] [place] [address] 21917- 4250 Dec, [facility] [address], [place] [address]- 8085 Dec, [facility] [id number] [place] [address] 44201- 8325 Dec, Clostridium difficile colitis A04.72 ; Intractable vomiting with nausea, unspecified vomiting type R11.2 and BMI 45.0-49.9, adult Z68.42 [facility] [id number] [place] [address] 27527- 3868 Dec, [facility] [id number] [place] [address] 34512- 7889 Nov, [facility] [id number] [place] [address] 90861- 3030 Nov, [facility] [id number] [place] [address] 57750- 8057 Nov, [facility] [id number] [place] [address] 90639- 3618 Nov, [facility] [id number] [place] [address] 49148 -1003 Nov, [facility] [id number] [place] [address] 95819- 9093 Nov, Hyperlipidemia, mixed E78.2 [facility] [id number] [place] [address] 02493 -3190 Nov, Acute suppurative otitis media of right ear without spontaneous rupture of tympanic membrane, recurrence not specified H66.001 and BMI 45.0-49.9, adult Z68.42 [facility] [id number] [place] [address] 46404- 8063 Nov, Hyperlipidemia, mixed E78.2 [facility] [id number] [place] [address] 09602- 6315 Nov, [facility] [id number] [place] [address] 44427- 2081 Nov, [facility] [address], [place] [address]- 1825 Nov, Nodule of left lung R91.1 [address] [id number] [place] [address] 32763- 8583 04 Nov, 2017 Medicare annual wellness visit, [...] adult Z68.42 and Encounter for immunization Z23 [address] [address]000- 6122 October, [address] 32516- 2613 October, Nodule of left lung R91.1 [address] [address] 13035- 4352 October, Nodule of left lung R91.1 [address] [facility] [address] 89597- 5335 October, Recurrent major depressive disorder, in partial remission F33.41 ; Restless leg syndrome G25.81 ; Generalized social phobia F40.11 ; Chronic post-traumatic stress disorder (PTSD) F43.12 ; BMI 45.0-49.9, adult Z68.42 and Trichotillomania F63.3 [address] [facility] [id number] [place] [address] 94687- 1200 October, [address] 12808- 1941 Sep, Chronic fatigue R53.82 and BMI 45.0-49.9, adult Z68.42 [address] [facility] [id number] [place] [address] 61077- 1819 Aug, [address] [place] [address]- 2124 Jul, Restless leg syndrome G25.81 and B12 deficiency E53.8 [address] [facility] [id number] [place] [address] 36831- 4317 Jul, [facility] [facility] [id number] [place] [address] 22404- 0493 Jul, [address] [address] 38542- 2500 Jun, [facility] [id number] [place] [address] 34049- 7471 Jun, Fatigue, unspecified type R53.83 ; History of renal cell carcinoma Z85.528 ; Chronic pancreatitis K86.1 ; Restless leg syndrome G25.81 ; Dark urine R82.99 and BMI 45.0-49.9, adult Z68.42 [facility] [facility] [id number] [place] [address] 31194- 1084 Jun, [facility] [id number] [place] [address] 96012- 0809 Jun, [facility] [id number] [place] [address] 08528- 0505 Jun, [facility] [id number] [place] [address] 86378- 6364 Jun, [facility] [id number] [place] [address] 01263- 7243 May, Chronic post-traumatic stress disorder (PTSD) F43.12 ; Moderate episode of recurrent major depressive disorder F33.1 ; Trichotillomania F63.3 and Generalized social phobia F40.11 [facility] [id number] [place] [address] 50102- 4739 May, [place] [facility] [id number] [place] [address] 99137- 5871 May, Chronic post-traumatic stress disorder (PTSD) F43.12 ; Moderate episode of recurrent major depressive disorder F33.1 ; Trichotillomania F63.3 and Generalized social phobia F40.11 [place] [id number] [place] [address] 85878- 7594 May, Hyperlipidemia, mixed E78.2 ; Morbid (severe) obesity due to excess calories E66.01 ; Chronic post-traumatic stress disorder (PTSD) F43.12 ; Moderate episode of recurrent major depressive disorder F33.1 ; Trichotillomania F63.3 and Generalized social phobia F40.11 [place] [address], [place] [address]- 6393 30 Apr, 2017 [place] [facility] [id number] [place] [address] 92407- 1520 29 Apr, 2017 Hyperlipidemia, mixed E78.2 ; Morbid (severe) obesity due to excess calories E66.01 ; Chronic post-traumatic stress disorder (PTSD) F43.12 ; Moderate episode of recurrent major depressive disorder F33.1 ; Trichotillomania F63.3 and Generalized social phobia F40.11 [address] [address], [place] [address]- 8190 Apr, Trichotillomania F63.3 ; Generalized social phobia F40.11 ; Chronic post-traumatic stress disorder (PTSD) F43.12 and Moderate episode of recurrent major depressive disorder F33.1 [place] [address], [place] [address]- 6257 Apr, [place] [address], [place] [address]- 6054 Apr, [place] [id number] [place] [address] 50566- 1809 Mar, Moderate episode of recurrent major depressive disorder F33.1 ; Trichotillomania F63.3 ; Chronic post-traumatic stress disorder (PTSD) F43.12 ; Generalized social phobia F40.11 and Restless leg syndrome G25.81 [facility] [facility] [id number] [place] [address] 62993- 1069 Mar, [facility] [id number] [place] [address] 04461- 5750 Mar, [facility] [id number] [place] [address] 88047- 8621 Feb, Left kidney mass N28.89 [facility] [id number] [place] [address] 79869- 1859 Jan, [facility] [id number] [place] [address] 49472- 5112 Dec, Polydipsia R63.1 ; Chronic pancreatitis K86.1 and Fatigue, unspecified type R53.83 [facility] [id number] [place] [address] 27166- 8972 Nov, [facility] [id number] [place] [address] 09588- 0433 Nov, [facility] [id number] [place] [address] 26180- 6428 Nov, Headache around the eyes R51 [facility] [id number] [place] [address] 91620- 8212 Nov, [facility] [id number] [place] [address] 99154- 2114 October, STD exposure Z20.2 [facility] [id number] [place] [address] 19463- 4236 October, STD exposure Z20.2 [facility] [id number] [place] [address] 52932- 4840 October, Chronic post-traumatic stress disorder (PTSD) F43.12 ; Generalized social phobia F40.11 ; Trichotillomania F63.3 and Restless leg syndrome G25.81 [facility] [id number] [place] [address] 44291- 7264 October, [facility] [id number] [place] [address] 34538- 5166 Sep, [place] [facility] [id number] [place] [address] 56141- 2933 Aug, [facility] [id number] [place] [address] [phone]- 0881 Aug, [place] [address] [place] [id number] [place] [address] 91610- 1169 08 Aug, 2016 Neck mass R22.1 [place] [address] [address]- [address] Aug, Atelectasis J98.11 [place] [address] [place] [id number] [place] [address] 81330- 4311 28 Jul, 2016 Hyperlipidemia, mixed E78.2 ; Atypical pneumonia J18.9 and Neck mass R22.1 [place] [address] [place] [id number] [place] [address] 49785- 8279 15 Jul, 2016 Hemoptysis R04.2 [place] [address] [place] [id number] [place] [address] 13051- 7450 08 Jul, 2016 Acute non-recurrent pansinusitis J01.40 ; Hemoptysis R04.2 ; Polydipsia R63.1 and Malaise R53.81 [facility] [place] [id number] [place] [phone] May, Other viral agents as the cause of diseases classified elsewhere B97.89 and Acute upper respiratory infection, unspecified J06.9 [facility] [place] [id number] [place] [address] 75936 -2536 Mar, Nausea R11.0 [facility] [place] [id number] [place] [address] 6[address]34 -77[address] Dec, Hives L50.9 [place] [address] [place] [id number] [place] [address] 31250- 9635 Dec, [facility] [place] [id number] [address] 10 Dec, 2015 Cutaneous abscess of limb, unspecified L02.419 ; Cellulitis of unspecified part of limb L03.119 ; Encounter for incision and drainage procedure Z01.89 and Encounter for recheck of abscess following incision and drainage Z09 [facility] [id number] [place] [address] 09 Dec, 2015 Abscess of leg, right L02.415 [place] [address] [place] [id number] [place] [address] 34074- 1666 08 Dec, 2015 Cellulitis of unspecified part of limb L03.119 and Cutaneous abscess of limb, unspecified L02.419 [place] [id number] [place] [address] 23846- 1353 Dec, [place] [address] [place] [id number] [place] [address] 03205- 0935 Dec, [facility] [place] [id number] [place] [address] 26049 [address] Aug, [place] [address] [place] [id number] [place] [address] 91784- 7215 Aug, [facility] [id number] [place] [address] 81852 -[address] Jul, Pain in unspecified wrist M25.539 and Back pain, thoracic M54.6 [facility] [id number] [place] [address]5130 Jun, Strain of right wrist, initial encounter S66.911A [place] [address] [place] [id number] [place] [address] 25546- 2499 Jun, Chronic pancreatitis, unspecified pancreatitis type K86.1 ; Hirsuties L68.0 ; Morbid (severe) obesity due to excess calories E66.01 ; Chronic pancreatitis K86.1 and Asthma J45.909 [place] [address] [place] [id number] [place] [address] [address]- [address] May, [facility] [id number] [place] [address] 614147- 0350 May, Hyperlipidemia, mixed E78.2 and Muscle spasm of back M62.830 [facility] [id number] [place] [address] 78915- 2506 Apr, [facility] [address] [address]- 2044 Apr, Torticollis M43.6 [facility] [id number] [place] [address] 12631- 8640 Apr, Right-sided thoracic back pain M54.6 [facility] [id number] [place] [address] 89221- 9468 Mar, Rash R21 [facility] [address] 8[address]- 1003 Mar, [facility] [id number] [place] [address] 66095- 5036 Jan, [facility] [id number] [place] [address] 26742- 5061 Dec, [facility] [id number] [place] [address] 55960- 2104 Dec, Urinary frequency 788.41 and Nocturia more than twice per night 788.43 [facility] [id number] [place] [address] 17586- 2841 Nov, [facility] [id number] [place] [address] 17664- 6511 Nov, [facility] [id number] [place] [address] 92910- 1928 Nov, Abdominal pain 789.00 [facility] [id number] [place] [address] 35410- 5885 October, TDAP DX V06.1 [facility] [address] [id number] [address] 0695 October, [facility] [id number] [address] 6914 October, Disturbance of skin sensation 782.0 ; Wrist pain, right 719.43 ; Hyperlipidemia 272.4 and Skin lesion of face 709.9 [facility] [id number] [place] [address], [place] [address]- 7295 Sep, [facility] [address] [facility] [id number] [place] [address]- 9124 Sep, [facility] [id number] [place] [address], [place] [address]- 1255 Aug, [facility] [id number] [address]- 7486 Aug, [facility] [id number] [address]- 8825 Aug, [facility] [id number] [place] [address]- 6496 23 Aug, 2014 [facility] [address] [place] [address]- 5029 Aug, [facility] [id number] [place] [address]- 9871 16 Aug, 2014 [facility] [address] [address]- 0941 14 Aug, 2014 [facility] [address] [id number] [address]- 5303 14 Aug, 2014 [facility] [id number] 4512 Aug, [facility] [address] [id number], [place] [address]- 9965 Aug, [facility] [address], [place] [address]- 3756 Aug, [facility] [place] [facility] [address] [id number] [place] [address]- 1903 Aug, [facility] [place] [facility] [address] [id number] [place] [address]- 3314 Aug, [facility] [place] [facility] [address] [facility] [id number] [place] [address]- 2082 Aug, [facility] [place] [facility] [address] [id number] [place] [address]- 1262 Jul, [facility] [place] [facility] [address] [id number] [place] [address]- 8156 Jul, [facility] [place] [facility] [address] [id number] [place] [address]- 4963 Jul, [facility] [place] [facility] [address] [facility] [id number] [place] [address]- 9149 Jul, [facility] [place] [facility] [address] [id number] [place] [address]- 2642 Jul, [facility] [place] [facility] [address] [id number] [place] [address]- 8042 Jul, [facility] [place] [facility] [address] [facility] [id number] [place] [address]- 9053 Jun, [facility] [place] [facility] [address] [id number] [place] [address]- 4276 Jun, [facility] [place] [facility] [address] [id number], [place] [address]- 1466 Jun, [facility] [place] [facility] [address] [id number], [place] [address]- 9041 Jun, [facility] [place] [facility] [address] [id number] [place] [address]- 0136 Jun, [facility] [place] [facility] [address] [facility] [id number], [place] [address]- 2337 Jun, [facility] [place] [facility] [address] [id number] [place] [address]- 0463 15 Jun, 2014 [facility] [place] [facility] [address] [id number] [place] [address]- 0155 15 Jun, 2014 [facility] [place] [facility] [address] [id number] [place] 4119 May, [facility] [place] [facility] [address] [id number] [place] 6230 May, [facility] [place] [facility] [address] [id number] [place] [address]- 3469 May, [facility] [place] [facility] [address] [id number] [place] [address]- 9103 May, [facility] [place] [facility] [address] [id number] [place] [address]- 9686 May, [facility] [place] [facility] [address] [id number] [place] [address]- 1924 May, [facility] [place] [facility] [address] [id number] [place] [address]- 7782 May, [facility] [place] [facility] [address] [id number] [place] [address]- 0471 May, [facility] [place] [facility] [address] [id number] [place] [address]- 9581 May, [facility] [place] [facility] [address] [id number] [place] [address]- 6545 May, [facility] [place] [facility] [address] [id number] [place] [address]- 5499 May, [facility] [place] [facility] [address] [id number] [place] [address]- 2270 May, [facility] [place] [facility] [address] [id number] [place] [address]- 2485 Apr, [facility] [place] [facility] [address] [id number] [place] [address]- 4110 Apr, [facility] [place] [facility] [address] [id number] [place] [address]- 7966 Apr, [facility] [place] [facility] [address] [id number] [place] [address]- 8056 Apr, [facility] [place] [facility] [address] [id number] [place] [address]- 7463 Apr, [facility] [place] [facility] [address] [id number] [place] [address]- 0549 Apr, [facility] [place] [facility] [address] [id number] [place] [address]- 1329 Apr, [facility] [place] [facility] [address] [id number] [place] [address]- 8528 Apr, [facility] [place] [facility] [address] [id number] [place] [address]- 9984 Apr, [facility] [place] [facility] [address] [id number], [place] [address]- 4597 Apr, [facility] [place] [facility] [address] [id number], [place] [address]- 4025 Apr, [facility] [place] [facility] [address] [id number], [place] [address]- 9019 Apr, [facility] [place] [facility] [address] [id number], [place] [address]- 4213 Mar, [facility] [place] [facility] [address] [id number], [place] [address]- 3718 Mar, [facility] [place] [facility] [address] [id number], [place] [address]- 2400 Mar, [facility] [place] [facility] [address] [id number], [place] [address]- 4196 Mar, [facility] [place] [facility] [address] [id number], [place] [address]- 8945 Feb, [facility] [place] [facility] [address] [id number] [place] [address]- 9166 10 Feb, 2013 [facility] [place] [facility] [address] [id number] [place] [address]- 8689 05 Sep, 2013 [facility] [place] [facility] [address] [id number] [place] [address]- 0536 05 Feb, 2013 [facility] [place] [facility] [address] [id number] [place] [address]- 0288 05 Feb, 2013 [facility] [place] [facility] [address] [id number] [place] [address]- 9632 05 Feb, 2013 [facility] [place] [facility] [address] [id number] [place] [address]- 0772 Jan, [facility] [place] [facility] [address] [id number] [place] [address]- 0861 Jan, 2013 [facility] [place] [facility] [address] [id number] [place] [address]- 7107 Jan, [facility] [place] [facility] [address] [id number] [place] [address]- 4847 Jan, [facility] [place] [facility] [address] [id number] [place] [address]- 6144 Jan, [facility] [place] [facility] [address] [id number] [place] [address]- 2807 Jan, [facility] [place] [facility] [address] [id number] [place] [address]- 0334 Jan, [facility] [place] [facility] [address] [id number] [place] [address]- 6118 Jan, [facility] [place] [facility] [address] [id number] [place] [address]- 4280 Jan, [facility] [place] [facility] [address] [id number] [place] [address]- 4479 Jan, [facility] [place] [facility] [address] [id number] [place] [address]- 3005 Jan, [facility] [place] [facility] [address] [id number] [place] [address]- 6804 Jan, [facility] [place] [facility] [address] [id number] [place] [address]- 0395 Jan, [facility] [place] [facility] [address] [id number] [place] [address]- 4297 Jan, [facility] [place] [facility] [address] [id number] [place] [address]- 8279 Dec, [facility] [place] [facility] [address] [id number] [place] [address]- 4515 Dec, [facility] [place] [facility] [address] [id number] [place] [address]- 5092 Dec, [facility] [place] [facility] [address] [id number] [place] [address]- 2982 Dec, [facility] [place] [facility] [address] [id number] [place] [address]- 4471 Nov, [facility] [place] [facility] [address] [id number] [place] [address]- 8520 Nov, [facility] [place] [facility] [address] [id number] [place] [address]- 6202 Nov, [facility] [place] [facility] [address] [id number] [place] [address]- 3198 Nov, [facility] [place] [facility] [address] [id number] [place] [address]- 0172 Nov, [facility] [place] [facility] [address] [id number] [place] [address]- 1121 October, [facility] [place] [facility] [address] [id number] [place] [address]- 7816 October, [facility] [place] [facility] [address] [id number] [place] [address]- 2817 October, [facility] [place] [facility] [address] [id number] [place] [address]- 1392 October, [facility] [place] [facility] [address] [id number] [place] [address]- 8186 October, [facility] [place] [facility] [address] [id number] [place] [address]- 2150 October, [facility] [place] [facility] [address] [id number] [place] [address]- 8820 October, [facility] [place] [facility] [address] [id number] [place] [address]- 0319 October, [facility] [place] [facility] [address] [id number] [place] [address]- 3816 October, [facility] [place] [facility] [address] [id number] [place] [address]- 9179 October, [facility] [place] [facility] [address] [id number] [place] [address]- 8018 October, [facility] [place] [facility] [address] [id number] [place] [address]- 1138 October, [facility] [place] [facility] [address] [id number] [place] [address]- 7555 October, [facility] [place] [facility] [address] [id number] [place] [address]- 0154 October, [facility] [place] [facility] [address] [id number] [place] [address]- 5364 Sep, [facility] [place] [facility] [address] [id number] [place] [address]- 1678 Sep, [facility] [place] [facility] [address] [id number] [place] [address]- 0991 Sep, [facility] [place] [facility] [address] [id number] [place] [address]- 5520 Sep, [facility] [place] [facility] [address] [id number] [place] [address]- 6188 Sep, [facility] [place] [facility] [address] [id number] [place] [address]- 4189 Sep, [facility] [place] [facility] [address] [id number] [place] [address]- 0274 Sep, [facility] [place] [facility] [address] [id number] [place] [address]- 0816 Sep, [facility] [place] [facility] [address] [id number] [place] [address]- 7205 Sep, [facility] [place] [facility] [address] [id number] [place] [address]- 9443 Sep, [facility] [place] [facility] [address] [id number] [place] [address]- 1710 Sep, [facility] [place] [facility] [address] [id number] [place] [address]- 6593 Sep, [facility] [place] [facility] [address] [id number] [place] [address]- 6399 Sep, [facility] [address] [id number] [place] [address]- 9037 Sep, [facility] [place] [facility] [address] [id number] [place] [address]- 0695 Sep, [facility] [place] [facility] [address] [id number] [place] [address]- 2405 Aug, [facility] [place] [facility] [address] [id number] [place] [address]- 3972 Aug, [facility] [place] [facility] [address] [id number] [place] [address]- 5199 Aug, [facility] [place] [facility] [address] [id number] [place] [address]- 9623 Aug, [facility] [place] [facility] [address] [id number] [place] [address]- 0579 Jul, [facility] [place] [facility] [address] [id number] [place] [address]- 9505 Jul, [facility] [address] [id number] [place] [address]- 0673 Jul, [facility] [place] [facility] [address] [id number] [place] [address]- 6106 Jul, [facility] [place] [facility] [address] [id number] [place] [address]- 8612 Jun, [facility] [place] [facility] [address] [id number] [place] [address]- 6022 Jun, [facility] [place] [facility] [address] [id number] [place] [address]- 1872 Jun, [facility] [place] [facility] [address] [id number] [place] [address]- 8483 Jun, [facility] [place] [facility] [address] [id number] [place] [address]- 1004 Jun, [facility] [place] [facility] [address] [id number] [place] [address]- 3778 Jun, [facility] [address] [id number] [place] [address]- 0548 Jun, [facility] [place] [facility] [address] [id number] [place] [address]- 2309 Jun, [facility] [address] [id number] [place] [address]- 5107 May, [facility] [place] [facility] [address] [id number] [place] [address]- 8562 May, [facility] [place] [facility] [address] [id number] [place] [address]- 5272 18 May, 2013 [facility] [place] [facility] [address] [id number] [place] [address]- 7500 18 May, 2013 [facility] [place] [facility] [address] [id number] [place] [address]- 8356 17 May, 2013 [facility] [place] [facility] [address] [id number] [place] [id number] 17 May, 2013 [facility] [address] [id number] [place] [address]- 2252 17 May, 2013 [facility] [address] [id number] [place] 4098 17 May, 2013 [facility] [address] [id number] [place] [address]- 0610 16 May, 2013 [facility] [address] [id number] [place] [address]- 3649 16 May, 2013 [facility] [address] [id number] [place] [address]- 2534 14 May, 2013 [facility] [address] [id number] [place] [address]- 0196 14 May, 2013 [facility] [address] [id number] [place] [address]- 1530 13 May, 2013 [facility] [address] [id number] [place] [address]- 3811 13 May, 2013 [facility] [address] [id number] [place] [address]- 7365 12 May, 2013 [facility] [address] [id number] [place] [address]- 3940 12 May, 2013 [facility] [address] [id number] [place] [address]- 3321 11 May, 2013 [facility] [place] [facility] [address] [id number] [place] [address]- 5774 11 May, 2013 [facility] [place] [facility] [address] [id number] [place] [address]- 3677 26 Apr, 2013 [facility] [place] [facility] [address] [id number] [place] [address]- 0320 Apr, [facility] [address] [id number] [place] 6212 Apr, [facility] [address] [id number] [place] [address]- 1951 Apr, [facility] [address] [id number] [place] [address]- 9631 27 Aug, 2012 [facility] [place] [facility] [address] [id number] [place] [address]- 2069 Aug, [facility] [address] [id number] [place] [address]- 9754 06 Aug, 2012 [facility] [address] [id number] [place] [address]- 6406 05 Aug, 2012 [facility] [place] [facility] [address] [id number] [place] [address]- 9410 Jul, [facility] [address] [id number] [place] [address]- 1796 Jun, [facility] [address] [id number] [place] [address]- 4664 Jun, [facility] [address] [id number] [place] [address]- 4418 Jun, [facility] [address] [id number] [place] [address]- 9330 Jun, [facility] [address] [id number] [place] [address]- 8370 May, [facility] [address] [id number] [place] [address]- 4524 May, [facility] [place] [facility] [address] [id number] [place] [address]- 4298 May, [facility] [place] [facility] [address] [id number] [place] [address]- 3249 May, [facility] [place] [facility] [address] [id number] [place] [address] May, [facility] [address] [id number], [place] [address] May, [facility] [place] [facility] [address] [id number] [place] [address] May, [facility] [place] [facility] [address] [id number] [place] [address] Apr, [facility] [place] [facility] [address] [id number] [place] [address] Apr, [facility] [place] [facility] [address] [id number], [place] [address] Apr, [facility] [place] [facility] [address] [id number] [place] [address] Apr, [facility] [place] [facility] [address] [id number] [place] [address] 36[address] Apr, [facility] [place] [facility] [address] [id number], [place] [address] Apr, [facility] [place] [facility] [address] [id number], [place] [address] Apr, [facility] [place] [facility] [address] [id number], [place] [address] Mar, [facility] [place] [facility] [address] [id number], [place] [address] Mar, [facility] [place] [facility] [address] [id number], [place] [address] Mar, [facility] [place] [facility] [address] [id number], [place] [address] Mar, [facility] [place] [facility] [address] [id number], [place] [address] Mar, [facility] [place] [facility] [address] [id number], [place] [address] Mar, [facility] [place] [facility] [address] [id number], [place] [address] Mar, [facility] [place] [facility] [address] [id number] [place] [address] 2546 Mar, [facility] [place] [facility] [address] [id number] [place] [address] Mar, [facility] [place] [facility] [address] [id number] [place] [address] 2546 Mar, [facility] [place] [facility] [address] [id number] [place] [address] 1206 Mar, [facility] [place] [facility] [address] [id number] [place] [address] 2549 Mar, [facility] [place] [facility] [address] [id number] [place] [address] Feb, [facility] [place] [facility] [address] [id number] [place] [address] Jan, [facility] [place] [facility] [address] [id number] [place] [address] 86[address] Jan, [facility] [place] [facility] [address] [id number] [place] [address] Jan, [facility] [place] [facility] [address] [id number] [place] [address] 8760 Jan, [facility] [place] [facility] [address] [id number] [place] [address]- 2549 Jan, [facility] [place] [facility] [address] [id number] [place] [address] 6[address] Dec, [facility] [place] [facility] [address] [id number] [place] [address] 2549 Dec, [facility] [place] [facility] [address] [id number] [place] [address] 4[address] Nov, [facility] [place] [facility] [address] [id number] [place] [address] 2546 Nov, [facility] [place] [facility] [address] [id number] [place] [address] Nov, [facility] [address] [id number] [place] [address] October, [facility] [place] [facility] [address] [id number] [place] [address] October, [facility] [place] [facility] [address] [id number] [place] [address] October, [facility] [place] [facility] [address] [id number] [place] [address] 8519 October, [facility] [address] [id number] [place] [address] October, [facility] [place] [facility] [address] [id number] [place] [address] 8981 October, [facility] [place] [facility] [address] [id number] [place] [address] 9252 October, [facility] [place] [facility] [address] [id number] [place] [address] Sep, [facility] [place] [facility] [address] [id number] [place] [address]- 3097 Sep, [facility] [place] [facility] [address] [id number] [place] [address] 1040 Sep, [facility] [place] [facility] [address] [id number] [place] [address]- [address] Sep, [facility] [place] [facility] [address] [id number] [place] [address]- [address] 24 Sep, 2011 [facility] [place] [facility] [address] [id number] [place] [address]- 5265 19 Sep, 2011 [facility] [place] [facility] [address] [id number] [place] [address]- 3992 17 Sep, 2011 [facility] [place] [facility] [address] [id number] [place] [address]- 3062 16 Sep, 2011 [facility] [place] [facility] [address] [id number], [place] [address] 16 Sep, 2011 [facility] [address] [id number] [place] [address]- 9597 14 Sep, 2011 [facility] [place] [facility] [address] [id number] [place] [address]- 2446 13 Sep, 2011 [facility] [place] [facility] [address] [facility] [id number] [place] [address]- 3266 10 Sep, 2011 [facility] [place] [facility] [address] [id number] [place] [address]- 3648 09 Sep, 2011 [facility] [place] [facility] [address] [id number] [place] [address]- 3036 27 Aug, 2011 [facility] [place] [facility] [address] [facility] [id number] [place] [address]- 2013 12 Aug, 2011 [facility] [id number] [place] [address] 08 Aug, 2011 [facility] [place] [facility] [id number] [place] [address]- 8510 06 Aug, 2011 [facility] [place] [facility] [id number] [place] [address]- 8620 28 Jul, 2011 [facility] [place] [facility] [id number] [place] [address]- 2734 22 Jul, 2011 [facility] [place] [facility] [id number] [place] [address]- 4496 16 Jul, 2011 [facility] [place] [facility] [address] [facility] [id number] [place] [address]- 3510 15 Jul, 2011 [facility] [place] [facility] [address] [id number] [place] [address]- 8757 14 Jul, 2011 [facility] [place] [facility] [address] [facility] [id number] [place] [address]- 8802 10 Jul, 2011 [facility] [place] [facility] [id number] [place] [address]- 0799 30 Jun, 2011 [facility] [place] [facility] [address] [id number] [place] [address]- 8432 Jun, [facility] [place] [facility] [address] [id number] [place] [address]- 4027 Jun, [facility] [place] [facility] [address] [id number] [place] [address]- 6652 Jun, [facility] [place] [facility] [address] [id number] [place] [address]- 9249 Jun, [facility] [address] [id number] [place] [address] May, [facility] [place] [facility] [address] [id number] [place] [address] May, [facility] [address] [id number] [place] [address] May, [facility] [address] [id number] [place] [address] 14 May, 2011 [facility] [place] [facility] [address] [id number] [place] [address] May, [facility] [address] [id number] [place] [address] May, [facility] [place] [facility] [address] [id number] [place] [address] May, [facility] [place] [facility] [address] [id number], [place] [address] 15 Apr, 2011 [facility] [place] [facility] [address] [id number] [place] [address] Apr, [facility] [place] [facility] [address] [id number] [place] [address] Apr, [facility] [place] [facility] [address] [id number] [place] [address] 07 Apr, 2011 [facility] [place] [facility] [address] [id number], [place] [address] Apr, [facility] [place] [facility] [address] [id number] [place] [address] 116[address] Apr, [facility] [place] [facility] [address] [id number] [place] [address] Mar, [facility] [place] [facility] [address] [id number] [place] [address] Mar, [facility] [place] [facility] [address] [id number] [place] [address] Mar, [facility] [place] [facility] [address] [id number] [place] [address] Mar, [facility] [place] [facility] [address] [id number] [place] [address] Jan, [facility] [place] [facility] [address] [id number] [place] [address] Dec, [facility] [place] [facility] [address] [id number] [place] [address] Dec, [facility] [place] [facility] [address] [facility] [id number] [place] [address] October, [facility] [place] [facility] [address] [facility] [id number] [place] [address] Sep, [facility] [place] [facility] [address] [id number] [place] [address] Sep, [facility] [place] [facility] [address] [id number] [place] [address] 4726 Jul, [facility] [place] [facility] [address] [id number] [place] [address] 16 Jul, 2010 [facility] [place] [facility] [address] [id number] [place] [address] May, [facility] [place] [facility] [address] [id number] [place] [address] May, [facility] [place] [facility] [address] [id number] [place] [address] 08 May, 2010 [facility] [place] [facility] [address] [id number] [place] [address] 67[address] May, [facility] [place] [facility] [address] [id number] [place] [address] 9567 Apr, [facility] [place] [facility] [address] [id number] [place] [address] 7384 Apr, [facility] [place] [facility] [address] [id number] [place] [address]44 Apr, [facility] [place] [facility] [address] [id number] [place] [address] 4688 Apr, [facility] [place] [facility] [address] [id number] [place] [address] Apr, [facility] [place] [facility] [address] [id number] [place] [address] 8067 Mar, [facility] [place] [facility] [address] [id number] [place] [address] 14 Mar, 2010 [facility] [place] [facility] [address] [id number] [place] [address] 365[address] Mar, [facility] [place] [facility] [address] [id number] [place] [address] Mar, [facility] [place] [facility] [address] [id number] [place] [address] Jan, [facility] [place] [facility] [address] [id number] [place] [address] 15 Dec, 2009 [facility] [place] [facility] [address] [id number] [place] [address]- [address]90 10 Sep, 2009 [facility] [place] [facility] [address] [id number] [place] [address]796 08 May, 2009 [facility] [place] [facility] [address] [id number] [place] [address] May, [facility] [id number] [address] [address] May, [facility] [id number] [place] [address] Apr, [facility] [id number] [address] [address] Apr, [facility] [id number] [place] [address]- [address] Apr, [facility] [id number] [place] [address]- [address] Apr, [facility] [id number] [place] [address]- [address] Apr, [facility] [id number] [place] [address] [id number]- [address] Mar, [facility] [id number] [place] [address] Mar, [facility] [id number] [place] [address] Jul, IMMUNIZATIONS No Known Immunizations SOCIAL HISTORY Never Assessed REASON FOR VISIT EMR-[facility] [place] PLAN OF CARE [...] the January before. 03/2018 Hospitalization History Cellulitis-[facility] 12/20/15 Hospitalization History [facility]- Abd pain 03/07/2017 Hospitalization History [facility]- Abd pain 03/14/2017 Hospitalization History [facility]- No bowel movement, rash 04/13/2017 Hospitalization History [facility]- Abd pain r/t kidney surgery on 04/17/2017 Hospitalization History [facility]- Abd pain r/t kidney surgery on 04/18/2017 Hospitalization History [facility]- Lower abd pain 04/30/2017 Hospitalization History [facility]- Cannot urinate 05/30/2017 Hospitalization History [facility]- Pancreatitis Sx 06/29/2017 Hospitalization History [facility]- Stomach pain 07/22/2017 Hospitalization History [facility]- Left side pain 08/12/2017 Hospitalization History [facility]- Incision site infection 08/30/2017 Hospitalization History [facility]- Post Op Seroma/Hematoma Left Abdomen. Discharged 09/04/17- Dr Daniel 09/02/2017 Hospitalization History [facility]- Right shoulder and back pain 2017 Hospitalization History [facility]- Shoulder/Back pain 11/11/2017 Hospitalization History [facility]- Right shoulder blade pain 12/04/2017 Hospitalization History [facility]- C-Diff 12/13/2017 Hospitalization History C diff et MRSA 12/27/2017
--- OUTSIDE RECORDS SUMMARY | 2018-10-14 14:27 | XMS REPORT ---
Author Author Migration, Doctor Organization [facility] Address Unknown Phone Unavailable Care Team Providers Care Legal Process Specialist Name Role Phone Migration, Doctor Unavailable Unavailable PROBLEMS Type Condition ICD9-CM Code XWT65-UZ Code Onset Dates Condition Status SNOMED Code Problem Chronic tension-type headache, intractable G44.221 Active 894608770 Problem Right carpal tunnel syndrome G56.01 Active 080836613970760 Problem Hyperlipidemia, mixed E78.2 Active 087452516 Problem Morbid (severe) obesity due to excess calories E66.01 Active 125058840 Problem FH: polycystic ovary Z84.2 Active 172691997 Problem Hirsuties L68.0 Active 598936882 Problem Asthma J45.909 Active 190660582 Problem Chronic pancreatitis K86.1 Active 648348532 Problem Trichotillomania F63.3 Active 03500426 Problem Restless leg syndrome G25.81 Active 01602141 Problem Generalized social phobia F40.11 Active 20367808 Problem Primary osteoarthritis of right knee M17.11 Active 922109617454002 Problem Atelectasis J98.11 Active 78850916 Problem History of renal cell carcinoma Z85.528 Active 595423011 Problem Obesities, morbid E66.01 Active 460261565 Problem Polydipsia R63.1 Active 23991035 Problem Nodule of left lung R91.1 Active 456812791 Problem Chronic post-traumatic stress disorder (PTSD) F43.12 Active 839022371 Problem Moderate episode of recurrent major depressive disorder F33.1 Active 389620501 Problem Chronic fatigue R53.82 Active 80511994 Problem Intestinal malabsorption, unspecified K90.9 Active [id number] ALLERGIES No Information ENCOUNTERS Encounter Location Date Diagnosis [facility] [id number] [address] Sep, [facility] [id number] [address] Sep, [facility] [address], [place] [address] Sep, Lower extremity edema R60.0 [facility] [address], [place] [address] Sep, [facility] [address] [facility] [id number] [address] Sep, Lower extremity edema R60.0 [address] Morbid obesity E66.01 [facility] [address], [place] [address] Sep, [facility] [address] [facility] [facility] [id number] [address] Sep, [facility] [address] [address] Aug, [facility] [address], [place] [address] Aug, Obesities, morbid E66.01 [address] Morbid obesity E66.01 [facility] [address], [place] [address] Aug, [address] [address] Jul, [facility] [address] [address] Jul, [facility] [address], [place] [address] Jul, [facility] [address], [place] [address] Jul, Numbness of right hand R20.0 [facility] [address], [place] [address] Jul, [facility] [address], [place] [address] Jul, Numbness of right hand R20.0 [facility] [id number] [place] [address]66- 5619 Jul, [facility] [id number] [place] [address] 24003- 9813 Jul, [facility] [id number] [place] [address] 67166- 4409 Jul, Right-sided thoracic back pain M54.6 [facility] [id number] [place] [address] 12979- 4632 Jul, [facility] [id number] [place] [address] 08263- 7407 Jul, [facility] [id number] [place] [address] 05964- 2704 Jul, [facility] [id number] [place] [address] 50782- 2933 Jul, [facility] [id number] [place] [address] 90091- 7504 Jun, [facility] [id number] [place] [address] 12564- 8440 Jun, Acute pain of right shoulder M25.511 ; Numbness of right hand R20.0 and Trapezius muscle spasm M62.838 [facility] [id number] [place] [address] 35756- 4643 Jun, [facility] [id number] [place] [address] 82615- 2486 Jun, [facility] [id number] [place] [address] 59818- 6541 Jun, Cough R05 ; BMI 50.0-59.9, adult Z68.43 and Morbid obesity E66.01 [facility] [id number] [place] [address] 61762- 9245 Jun, [facility] [id number] [place] [address] 76104- 3701 14 Jun, 2018 [facility] [id number] [place] [address] 11575 -5130 13 Jun, 2018 BMI 45.0-49.9, adult Z68.42 and Acute non-recurrent maxillary sinusitis J01.00 [facility] [id number] [place] [address] 73073 -5137 09 Jun, 2018 Acute sinusitis J01.90 ; Dysuria R30.0 and BMI 45.0-49.9, adult Z68.42 [facility] [id number] [place] [address] 65285- 1810 Jun, [facility] [id number] [place] [address] 62016- 9538 Jun, [facility] [id number] [place] [address] 51469- 6798 May, [facility] [id number] [place] [address] 50581- 7910 May, [facility] [id number] [place] [address] 46088- 1744 May, [facility] [id number] [place] [address] 21156- 2704 May, [facility] [id number] [place] [address] 66216- 2306 May, [facility] [id number] [place] [address] 83303- 0259 Apr, Generalized social phobia F40.11 ; Trichotillomania F63.3 ; Chronic post-traumatic stress disorder (PTSD) F43.12 and BMI 45.0-49.9, adult Z68.42 [facility] [id number] [place] [address] 98953- 6351 Apr, [facility] [id number] [place] [address] 67938- 7944 Apr, Chronic tension-type headache, intractable G44.221 [facility] [address], [place] [address] 24[address] Apr, [facility] [id number] [place] [address] 30989 -8792 Mar, [facility] [id number] [place] [address] 25935 -5155 Mar, BMI 45.0-49.9, adult Z68.[address] [facility] [id number] [place] [address] 66488- 5889 Mar, [facility] [id number] [place] [address] 80996- 6783 Mar, [facility] [id number] [place] [address] 65252- 5820 Mar, Decreased urination R34 ; Chronic fatigue R53.82 ; Peripheral edema R60.9 ; Diarrhea, unspecified type R19.7 ; Non-intractable vomiting with nausea, unspecified vomiting type R11.2 ; BMI 45.0-49.9, adult Z68.42 and Chronic post-traumatic stress disorder (PTSD) F43.12 [address] [place] [address] 89582- 5961 Mar, Intestinal malabsorption, unspecified K90.9 ; Diarrhea, unspecified R19.7 ; Urinary urgency R39.15 ; Rectal bleeding K62.5 and Decreased urine output R34 [address] [place] [address] 38965- 4173 Mar, Decreased urine output R34 [address] [id number] [place] [address] 91447- 6836 Mar, Rectal bleeding K62.5 [address] [facility] [id number] [place] [address] 85226- 9022 Mar, Rectal bleeding K62.5 [address] [id number] [place] [address] 39483- 5465 Mar, Urinary urgency R39.15 [facility] [id number] [place] [address] 23420- 5562 Mar, Urinary urgency R39.15 [facility] [id number] [place] [address] 98721- 1544 Mar, Primary osteoarthritis of right knee M17.11 and BMI 45.0- 49.9, adult Z68.42 [facility] [id number] [place] [address] 12882- 8550 Mar, [facility] [id number] [place] [address] 55096- 8178 Feb, Left upper arm pain M79.622 [facility] [id number] [place] [address] 93855- 8936 Feb, [facility] [id number] [place] [address] 04624- 9265 Jan, Acute pain of right knee M25.561 ; Right upper quadrant abdominal pain R10.11 and BMI 45.0-49.9, adult Z68.42 [facility] [id number] [place] [address] 66806- 9166 Jan, [facility] [id number] [place] [address] 33507- 5209 Jan, [facility] [id number] [place] [address] 86233- 2757 Dec, [facility] [id number] [place] [address] 43156- 8259 Dec, Intestinal malabsorption, unspecified K90.9 and Diarrhea, unspecified R19.7 [facility] [id number] [place] [address] 87200- 0564 Dec, [facility] [id number] [place] [address] 66449- 6366 23 Harshad, 2018 Strep throat J02.0 ; Intestinal malabsorption, unspecified K90.9 ; Diarrhea, unspecified R19.7 ; Postoperative seroma involving digestive system after non-digestive system procedure K91.873 ; Hyperlipidemia, mixed E78.2 and BMI 45.0-49.9, adult Z68.42 [facility] [address], [place] [address]- 8[address] Dec, [facility] [id number] [place] [address] 45031- 4171 Dec, Nausea R11.0 [facility] [id number] [place] [address] 56848- 2065 Dec, [facility] [id number] [place] [address] 94224 -5652 Dec, Sore throat J02.9 ; Strep throat J02.0 and BMI 45.0-49.9, adult Z68.42 [facility] [id number] [place] [address] 68223- 8540 Dec, [facility] [id number] [place] [address] 12546- 9494 Dec, [facility] [id number] [place] [address] 33237- 3931 Dec, [facility] [address], [place] [address]- 9967 Dec, [facility] [id number] [place] [address] 79032- 5441 Dec, [facility] [address], [place] [address]- 8250 Dec, [facility] [id number] [place] [address] 87687- 0906 Dec, [facility] [address], [place] [address]- 7286 Dec, [facility] [id number] [place] [address] 23105- 4383 Dec, Clostridium difficile colitis A04.72 ; Intractable vomiting with nausea, unspecified vomiting type R11.2 and BMI 45.0-49.9, adult Z68.42 [facility] [id number] [place] [address] 13298- 4041 Dec, [facility] [id number] [place] [address] 36423- 1705 Nov, [facility] [id number] [place] [address] 96237- 4385 Nov, [facility] [id number] [place] [address] 45622- 9513 Nov, [facility] [id number] [place] [address] 95608- 7540 Nov, [facility] [id number] [place] [address] 09890 -9376 Nov, [facility] [id number] [place] [address] 64574- 0058 Nov, Hyperlipidemia, mixed E78.2 [facility] [address] [place] [address] 73695 -1323 Nov, Acute suppurative otitis media of right ear without spontaneous rupture of tympanic membrane, recurrence not specified H66.001 and BMI 45.0-49.9, adult Z68.42 [facility] [id number] [place] [address] 19388- 7034 Nov, Hyperlipidemia, mixed E78.2 [facility] [address] [place] [address] 37705- 9627 Nov, [facility] [id number] [place] [address] 33762- 0615 Nov, [facility] [address], [place] [address]- 2951 Nov, Nodule of left lung R91.1 [address] [address] [place] [address] 79052- 5880 04 Nov, 2017 Medicare annual wellness visit, [...] adult Z68.42 and Encounter for immunization Z23 [address] [address]65- [address]300 October, [address] 73026- 3068 October, Nodule of left lung R91.1 [address] 97200- 2516 October, Nodule of left lung R91.1 [address] [place] 33521- 8141 October, Recurrent major depressive disorder, in partial remission F33.41 ; Restless leg syndrome G25.81 ; Generalized social phobia F40.11 ; Chronic post-traumatic stress disorder (PTSD) F43.12 ; BMI 45.0-49.9, adult Z68.42 and Trichotillomania F63.3 [address] [id number] [place] [address] 25241- 3425 October, [address] 82673- 0299 Sep, Chronic fatigue R53.82 and BMI 45.0-49.9, adult Z68.42 [address] [facility] [id number] [place] [address] 50629- 3415 Aug, [address] [place] [address]- 9455 Jul, Restless leg syndrome G25.81 and B12 deficiency E53.8 [address] [id number] [place] [address] 65686- 3641 Jul, [facility] [id number] [place] [address] 36625- 6055 Jul, [address] [address] 79973- 7316 Jun, [facility] [id number] [place] [address] 67061- 1080 Jun, Fatigue, unspecified type R53.83 ; History of renal cell carcinoma Z85.528 ; Chronic pancreatitis K86.1 ; Restless leg syndrome G25.81 ; Dark urine R82.99 and BMI 45.0-49.9, adult Z68.42 [place] [id number] [place] [address] 22884- 9009 Jun, [facility] [id number] [place] [address] 41220- 6018 Jun, [facility] [id number] [place] [address] 62330- 1646 Jun, [facility] [id number] [place] [address] 82585- 9867 Jun, [facility] [id number] [place] [address] 74393- 7965 May, Chronic post-traumatic stress disorder (PTSD) F43.12 ; Moderate episode of recurrent major depressive disorder F33.1 ; Trichotillomania F63.3 and Generalized social phobia F40.11 [place] [place] [id number] [place] [address] 13669- 4092 May, [address] [address] [place] [address] 71023- 1570 May, Chronic post-traumatic stress disorder (PTSD) F43.12 ; Moderate episode of recurrent major depressive disorder F33.1 ; Trichotillomania F63.3 and Generalized social phobia F40.11 [place] [address] [place] [address] 46100- 2913 May, Hyperlipidemia, mixed E78.2 ; Morbid (severe) obesity due to excess calories E66.01 ; Chronic post-traumatic stress disorder (PTSD) F43.12 ; Moderate episode of recurrent major depressive disorder F33.1 ; Trichotillomania F63.3 and Generalized social phobia F40.11 [place] [address], [place] [address]- 6651 30 Apr, 2017 [place] [id number] [place] [address] 21232- 3832 29 Apr, 2017 Hyperlipidemia, mixed E78.2 ; Morbid (severe) obesity due to excess calories E66.01 ; Chronic post-traumatic stress disorder (PTSD) F43.12 ; Moderate episode of recurrent major depressive disorder F33.1 ; Trichotillomania F63.3 and Generalized social phobia F40.11 [place] [address], [place] [address]- 0056 Apr, Trichotillomania F63.3 ; Generalized social phobia F40.11 ; Chronic post-traumatic stress disorder (PTSD) F43.12 and Moderate episode of recurrent major depressive disorder F33.1 [place] [address], [place] [address]- 2323 Apr, [place] [address], [place] [address]- 9874 Apr, [place] [address] [place] [address] 00406- 5356 Mar, Moderate episode of recurrent major depressive disorder F33.1 ; Trichotillomania F63.3 ; Chronic post-traumatic stress disorder (PTSD) F43.12 ; Generalized social phobia F40.11 and Restless leg syndrome G25.81 [place] [id number] [place] [address] 33175- 6833 Mar, [facility] [id number] [place] [address] 04723- 8767 Mar, [facility] [id number] [place] [address] 49751- 8937 Feb, Left kidney mass N28.89 [facility] [id number] [place] [address] 87510- 2365 Jan, [facility] [id number] [place] [address] 62527- 3494 Dec, Polydipsia R63.1 ; Chronic pancreatitis K86.1 and Fatigue, unspecified type R53.83 [facility] [id number] [place] [address] 77755- 2929 Nov, [facility] [id number] [place] [address] 70948- 4638 Nov, [facility] [id number] [place] [address] 57681- 0347 Nov, Headache around the eyes R51 [facility] [id number] [place] [address] 35140- 7505 Nov, [facility] [id number] [place] [address] 38856- 8739 October, STD exposure Z20.2 [facility] [id number] [place] [address] 74945- 9726 October, STD exposure Z20.2 [facility] [id number] [place] [address] 48558- 7380 October, Chronic post-traumatic stress disorder (PTSD) F43.12 ; Generalized social phobia F40.11 ; Trichotillomania F63.3 and Restless leg syndrome G25.81 [facility] [id number] [place] [address] 62592- 0770 October, [facility] [address] [place] [address] 76634- 9117 Sep, [place] [id number] [place] [address] 83266- 3583 Aug, [facility] [id number] [place] [address] 19296- 9405 Aug, [place] [place] [id number] [place] [address] 14675- 1068 08 Aug, 2016 Neck mass R22.1 [place] [address] 90180- 7705 Aug, Atelectasis J98.11 [place] [place] [id number] [place] [address] 77322- 6132 28 Jul, 2016 Hyperlipidemia, mixed E78.2 ; Atypical pneumonia J18.9 and Neck mass R22.1 [place] [id number] [place] [address] 90502- 6130 15 Jul, 2016 Hemoptysis R04.2 [place] [address] [place] [id number] [place] [address] 57996- 7849 08 Jul, 2016 Acute non-recurrent pansinusitis J01.40 ; Hemoptysis R04.2 ; Polydipsia R63.1 and Malaise R53.81 [facility] [place] [id number] [place] [phone] [address]2874 May, Other viral agents as the cause of diseases classified elsewhere B97.89 and Acute upper respiratory infection, unspecified J06.9 [facility] [place] [id number] [place] [address] [phone] -[phone] Mar, Nausea R11.0 [facility] [place] [id number] [place] [address] 60184 [address]5828 Dec, Hives L50.9 [place] [address] [place] [id number] [place] [address] 45484- 9107 Dec, [facility] [place] [id number], [place] [address] 10 Dec, 2015 Cutaneous abscess of limb, unspecified L02.419 ; Cellulitis of unspecified part of limb L03.119 ; Encounter for incision and drainage procedure Z01.89 and Encounter for recheck of abscess following incision and drainage Z09 [facility] [id number], [place] [address] 09 Dec, 2015 Abscess of leg, right L02.415 [place] [address] [place] [id number] [place] [address] 85441- 5315 08 Dec, 2015 Cellulitis of unspecified part of limb L03.119 and Cutaneous abscess of limb, unspecified L02.419 [place] [id number] [place] [address] 99205- 2807 Dec, [place] [address] [place] [id number] [place] [address] 19835- 4762 Dec, [facility] [place] [id number] [place] [address] [phone] [address][phone] Aug, [place] [address] [place] [id number] [place] [address] 20963- 5124 Aug, [facility] IN [id number] [place] [address] 09865 -5221 Jul, Pain in unspecified wrist M25.539 and Back pain, thoracic M54.6 [facility] IN [id number] [place] [address] 43922 -4594 Jun, Strain of right wrist, initial encounter S66.911A [place] [address] [place] [id number] [place] [address] 81123- 3463 Jun, Chronic pancreatitis, unspecified pancreatitis type K86.1 ; Hirsuties L68.0 ; Morbid (severe) obesity due to excess calories E66.01 ; Chronic pancreatitis K86.1 and Asthma J45.909 [place] [address] [place] [id number] [place] [address] 52629- 8773 May, [facility] [address] [place] [id number] [place] [address] [phone]- 9697 May, Hyperlipidemia, mixed E78.2 and Muscle spasm of back M62.830 [facility] [address] [place] [id number] [place] [address] 06946- 2736 Apr, [facility] [address] [phone]- [address] Apr, Torticollis M43.6 [facility] [address] [place] [id number] [place] [address] 39952- 8639 Apr, Right-sided thoracic back pain M54.6 [facility] [address] [place] [id number] [place] [address] 44662- 5291 Mar, [address] [facility] [address] [address]- [address]10 Mar, [facility] [address] [place] [id number] [place] [address]- [address]706 Jan, [facility] [id number] [place] [address] 69123- 0535 Dec, [facility] [id number] [place] [address] 02720- 7049 Dec, Urinary frequency 788.41 and Nocturia more than twice per night 788.43 [facility] [id number] [place] [address] 54782- 9397 Nov, [facility] [id number] [place] [address] 82301- 5534 Nov, [facility] [id number] [place] [address] 71613- 9793 Nov, Abdominal pain 789.00 [facility] [id number] [place] [address] 44402- 2131 October, TDAP DX V06.1 [facility] [address] [id number] [address] October, [facility] [id number] [address] 49[address] October, Disturbance of skin sensation 782.0 ; Wrist pain, right 719.43 ; Hyperlipidemia 272.4 and Skin lesion of face 709.9 [facility] [id number] [place] [address], [place] [address]- 5[address] Sep, [facility] [address] [facility] [id number] [place] [address]- 2426 Sep, [facility] [id number] [place] [address], [place] [address]- 1151 Aug, [facility] [address] [id number] [address] 0[address] Aug, [facility] [address] [id number] [address]- 0[address] Aug, [facility] [id number], [place] [address]- [address], [address] [facility] [address], [place] [address]- [address] Aug, [facility] [address], [place] [address]- 1794 [address], [address] [facility] [address], [place] [address]- [address]83 [address], [address] [facility] [address] [id number], [place] [address]- [address]365 [address], [address] [facility] [id number] [address] 4857 Aug, [facility] [address] [id number], [place] [address]- [address] Aug, [facility] [address], [place] [address]- 5156 Aug, [facility] [place] [facility] [address] [id number] [place] [address]- 8014 Aug, [facility] [place] [facility] [address] [id number] [place] [address]- 2971 Aug, [facility] [place] [facility] [address] [facility] [id number] [place] [address]- 1705 Aug, [facility] [place] [facility] [address] [id number] [place] [address]- 7393 Jul, [facility] [place] [facility] [address] [id number] [place] [address]- 0109 Jul, [facility] [place] [facility] [address] [id number] [place] [address]- 1675 Jul, [facility] [place] [facility] [address] [facility] [id number] [place] [address]- 6862 Jul, [facility] [place] [facility] [address] [id number] [place] [address]- 3891 Jul, [facility] [place] [facility] [address] [id number] [place] [address]- 9855 Jul, [facility] [place] [facility] [address] [facility] [id number] [place] [address]- 5922 Jun, [facility] [place] [facility] [address] [id number] [place] [address]- 3197 Jun, [facility] [place] [facility] [address] [id number], [place] [address]- 2498 Jun, [facility] [place] [facility] [address] [id number], [place] [address]- 7748 Jun, [facility] [place] [facility] [address] [id number] [place] [address]- 9625 Jun, [facility] [place] [facility] [address] [facility] [id number], [place] [address]- 6454 Jun, [facility] [place] [facility] [address] [id number] [place] [address]- 4281 15 Jun, 2014 [facility] [place] [facility] [address] [id number] [place] [address]- 9775 15 Jun, 2014 [facility] [place] [facility] [address] [id number] [place] 6899 May, [facility] [place] [facility] [address] [id number] [place] 1274 May, [facility] [place] [facility] [address] [id number] [place] [address]- 4671 May, [facility] [place] [facility] [address] [id number] [place] [address]- 9498 May, [facility] [place] [facility] [address] [id number] [place] [address]- 0486 May, [facility] [place] [facility] [address] [id number] [place] [address]- 4582 May, [facility] [place] [facility] [address] [id number] [place] [address]- 4672 May, [facility] [place] [facility] [address] [id number] [place] [address]- 1515 May, [facility] [place] [facility] [address] [id number] [place] [address]- 1611 May, [facility] [place] [facility] [address] [id number] [place] [address]- 8264 May, [facility] [place] [facility] [address] [id number] [place] [address]- 9463 May, [facility] [place] [facility] [address] [id number] [place] [address]- 2418 May, [facility] [place] [facility] [address] [id number] [place] [address]- 8748 Apr, [facility] [place] [facility] [address] [id number] [place] [address]- 5564 Apr, [facility] [place] [facility] [address] [id number] [place] [address]- 2561 Apr, [facility] [place] [facility] [address] [id number] [place] [address]- 6730 Apr, [facility] [place] [facility] [address] [id number] [place] [address]- 8966 Apr, [facility] [place] [facility] [address] [id number] [place] [address]- 9542 Apr, [facility] [place] [facility] [address] [id number] [place] [address]- 8324 Apr, [facility] [place] [facility] [address] [id number] [place] [address]- 7369 Apr, [facility] [place] [facility] [address] [id number] [place] [address]- 3600 Apr, [facility] [place] [facility] [address] [id number], [place] [address]- 5036 Apr, [facility] [place] [facility] [address] [id number], [place] [address]- 7416 Apr, [facility] [place] [facility] [address] [id number], [place] [address]- 4718 Apr, [facility] [place] [facility] [address] [id number], [place] [address]- 0918 Mar, [facility] [place] [facility] [address] [id number], [place] [address]- 7178 Mar, [facility] [place] [facility] [address] [id number], [place] [address]- 1828 Mar, [facility] [place] [facility] [address] [id number], [place] [address]- 8294 Mar, [facility] [place] [facility] [address] [id number], [place] [address]- 4399 Feb, [facility] [place] [facility] [address] [id number] [place] [address]- 2742 10 Feb, 2013 [facility] [place] [facility] [address] [id number] [place] [address]- 4270 05 Sep, 2013 [facility] [place] [facility] [address] [id number] [place] [address]- 7706 05 Feb, 2013 [facility] [place] [facility] [address] [id number] [place] [address]- 0741 05 Feb, 2013 [facility] [place] [facility] [address] [id number] [place] [address]- 6694 05 Feb, 2013 [facility] [place] [facility] [address] [id number] [place] [address]- 3872 Jan, [facility] [place] [facility] [address] [id number] [place] [address]- 4446 Jan, 2013 [facility] [place] [facility] [address] [id number] [place] [address]- 2771 Jan, [facility] [place] [facility] [address] [id number] [place] [address]- 8228 Jan, [facility] [place] [facility] [address] [id number] [place] [address]- 0516 Jan, [facility] [place] [facility] [address] [id number] [place] [address]- 8783 Jan, [facility] [place] [facility] [address] [id number] [place] [address]- 6805 Jan, [facility] [place] [facility] [address] [id number] [place] [address]- 5507 Jan, [facility] [place] [facility] [address] [id number] [place] [address]- 5854 Jan, [facility] [place] [facility] [address] [id number] [place] [address]- 7843 Jan, [facility] [place] [facility] [address] [id number] [place] [address]- 5486 Jan, [facility] [place] [facility] [address] [id number] [place] [address]- 7294 Jan, [facility] [place] [facility] [address] [id number] [place] [address]- 3155 Jan, [facility] [place] [facility] [address] [id number] [place] [address]- 7506 Jan, [facility] [place] [facility] [address] [id number] [place] [address]- 9229 Dec, [facility] [place] [facility] [address] [id number] [place] [address]- 0210 Dec, [facility] [place] [facility] [address] [id number] [place] [address]- 4219 Dec, [facility] [place] [facility] [address] [id number] [place] [address]- 7347 Dec, [facility] [place] [facility] [address] [id number] [place] [address]- 2562 Nov, [facility] [place] [facility] [address] [id number] [place] [address]- 1722 Nov, [facility] [place] [facility] [address] [id number] [place] [address]- 6843 Nov, [facility] [place] [facility] [address] [id number] [place] [address]- 6970 Nov, [facility] [place] [facility] [address] [id number] [place] [address]- 1918 Nov, [facility] [place] [facility] [address] [id number] [place] [address]- 2211 October, [facility] [place] [facility] [address] [id number] [place] [address]- 8399 October, [facility] [place] [facility] [address] [id number] [place] [address]- 2904 October, [facility] [place] [facility] [address] [id number] [place] [address]- 9486 October, [facility] [place] [facility] [address] [id number] [place] [address]- 2093 October, [facility] [place] [facility] [address] [id number] [place] [address]- 7191 October, [facility] [place] [facility] [address] [id number] [place] [address]- 6400 October, [facility] [place] [facility] [address] [id number] [place] [address]- 6357 October, [facility] [place] [facility] [address] [id number] [place] [address]- 9970 October, [facility] [place] [facility] [address] [id number] [place] [address]- 2914 October, [facility] [place] [facility] [address] [id number] [place] [address]- 8832 October, [facility] [place] [facility] [address] [id number] [place] [address]- 7543 October, [facility] [place] [facility] [address] [id number] [place] [address]- 2796 October, [facility] [place] [facility] [address] [id number] [place] [address]- 1753 October, [facility] [place] [facility] [address] [id number] [place] [address]- 8489 Sep, [facility] [place] [facility] [address] [id number] [place] [address]- 7250 Sep, [facility] [place] [facility] [address] [id number] [place] [address]- 7511 Sep, [facility] [place] [facility] [address] [id number] [place] [address]- 9981 Sep, [facility] [place] [facility] [address] [id number] [place] [address]- 7252 Sep, [facility] [place] [facility] [address] [id number] [place] [address]- 6570 Sep, [facility] [place] [facility] [address] [id number] [place] [address]- 3619 Sep, [facility] [place] [facility] [address] [id number] [place] [address]- 9746 Sep, [facility] [place] [facility] [address] [id number] [place] [address]- 5338 Sep, [facility] [place] [facility] [address] [id number] [place] [address]- 9123 Sep, [facility] [place] [facility] [address] [id number] [place] [address]- 6556 Sep, [facility] [place] [facility] [address] [id number] [place] [address]- 9057 Sep, [facility] [place] [facility] [address] [id number] [place] [address]- 9234 Sep, [facility] [address] [id number] [place] [address]- 9993 Sep, [facility] [place] [facility] [address] [id number] [place] [address]- 4603 Sep, [facility] [place] [facility] [address] [id number] [place] [address]- 6139 Aug, [facility] [place] [facility] [address] [id number] [place] [address]- 7401 Aug, [facility] [place] [facility] [address] [id number] [place] [address]- 3656 Aug, [facility] [place] [facility] [address] [id number] [place] [address]- 4121 Aug, [facility] [place] [facility] [address] [id number] [place] [address]- 1189 Jul, [facility] [place] [facility] [address] [id number] [place] [address]- 0351 Jul, [facility] [address] [id number] [place] [address]- 0079 Jul, [facility] [place] [facility] [address] [id number] [place] [address]- 6396 Jul, [facility] [place] [facility] [address] [id number] [place] [address]- 3660 Jun, [facility] [place] [facility] [address] [id number] [place] [address]- 7710 Jun, [facility] [place] [facility] [address] [id number] [place] [address]- 8859 Jun, [facility] [place] [facility] [address] [id number] [place] [address]- 8881 Jun, [facility] [place] [facility] [address] [id number] [place] [address]- 6875 Jun, [facility] [place] [facility] [address] [id number] [place] [address]- 7992 Jun, [facility] [address] [id number] [place] [address]- 0460 Jun, [facility] [place] [facility] [address] [id number] [place] [address]- 3451 Jun, [facility] [address] [id number] [place] [address]- 0174 May, [facility] [place] [facility] [address] [id number] [place] [address]- 0200 May, [facility] [place] [facility] [address] [id number] [place] [address]- 3289 18 May, 2013 [facility] [place] [facility] [address] [id number] [place] [address]- 0877 18 May, 2013 [facility] [place] [facility] [address] [id number] [place] [address]- 8484 17 May, 2013 [facility] [place] [facility] [address] [id number] [place] [id number] 17 May, 2013 [facility] [address] [id number] [place] [address]- 4309 17 May, 2013 [facility] [address] [id number] [place] 8940 17 May, 2013 [facility] [address] [id number] [place] [address]- 5077 16 May, 2013 [facility] [address] [id number] [place] [address]- 4403 16 May, 2013 [facility] [address] [id number] [place] [address]- 7507 14 May, 2013 [facility] [address] [id number] [place] [address]- 0790 14 May, 2013 [facility] [address] [id number] [place] [address]- 5428 13 May, 2013 [facility] [address] [id number] [place] [address]- 3893 13 May, 2013 [facility] [address] [id number] [place] [address]- 5076 12 May, 2013 [facility] [address] [id number] [place] [address]- 4425 12 May, 2013 [facility] [address] [id number] [place] [address]- 5429 11 May, 2013 [facility] [place] [facility] [address] [id number] [place] [address]- 2978 11 May, 2013 [facility] [place] [facility] [address] [id number] [place] [address]- 4365 26 Apr, 2013 [facility] [place] [facility] [address] [id number] [place] [address]- 7693 Apr, [facility] [address] [id number] [place] 7056 Apr, [facility] [address] [id number] [place] [address]- 8852 Apr, [facility] [address] [id number] [place] [address]- 5437 27 Aug, 2012 [facility] [place] [facility] [address] [id number] [place] [address]- 4057 Aug, [facility] [address] [id number] [place] [address]- 0315 06 Aug, 2012 [facility] [address] [id number] [place] [address]- 2984 05 Aug, 2012 [facility] [place] [facility] [address] [id number] [place] [address]- 9786 Jul, [facility] [address] [id number] [place] [address]- 1150 Jun, [facility] [address] [id number] [place] [address]- 1758 Jun, [facility] [address] [id number] [place] [address]- 4445 Jun, [facility] [address] [id number] [place] [address]- 2732 Jun, [facility] [address] [id number] [place] [address]- 3491 May, [facility] [address] [id number] [place] [address]- 1440 May, [facility] [place] [facility] [address] [id number] [place] [address]- 7385 May, [facility] [place] [facility] [address] [id number] [place] [address]- 6853 May, [facility] [place] [facility] [address] [id number] [place] [address]- 8148 May, [facility] [address] [id number], [place] [address]- 4315 May, [facility] [place] [facility] [address] [id number] [place] [address]- 1940 May, [facility] [place] [facility] [address] [id number] [place] [address] Apr, [facility] [place] [facility] [address] [id number] [place] [address] Apr, [facility] [place] [facility] [address] [id number], [place] [address] Apr, [facility] [place] [facility] [address] [id number] [place] [address] Apr, [facility] [place] [facility] [address] [id number] [place] [address] Apr, [facility] [place] [facility] [address] [id number], [place] [address] Apr, [facility] [place] [facility] [address] [id number], [place] [address] Apr, [facility] [place] [facility] [address] [id number], [place] [address] Mar, [facility] [place] [facility] [address] [id number], [place] [address] Mar, [facility] [place] [facility] [address] [id number], [place] [address] Mar, [facility] [place] [facility] [address] [id number], [place] [address] Mar, [facility] [place] [facility] [address] [id number], [place] [address] Mar, [facility] [place] [facility] [address] [id number], [place] [address] Mar, [facility] [place] [facility] [address] [id number], [place] [address] Mar, [facility] [place] [facility] [address] [id number] [place] [address] Mar, [facility] [place] [facility] [address] [id number] [place] [address] Mar, [facility] [place] [facility] [address] [id number] [place] [address] 2546 Mar, [facility] [place] [facility] [address] [id number] [place] [address] Mar, [facility] [place] [facility] [address] [id number] [place] [address] 2547 Mar, [facility] [place] [facility] [address] [id number] [place] [address] Feb, [facility] [place] [facility] [address] [id number] [place] [address] Jan, [facility] [place] [facility] [address] [id number] [place] [address] Jan, [facility] [place] [facility] [address] [id number] [place] [address]- [address] Jan, [facility] [place] [facility] [address] [id number] [place] [address]- 78[address] Jan, [facility] [place] [facility] [address] [id number] [place] [address] Jan, [facility] [place] [facility] [address] [id number] [place] [address] Dec, [facility] [place] [facility] [address] [id number] [place] [address] Dec, [facility] [place] [facility] [address] [id number] [place] [address] Nov, [facility] [place] [facility] [address] [id number] [place] [address] Nov, [facility] [place] [facility] [address] [id number] [place] [address] Nov, [facility] [address] [id number] [place] [address] October, [facility] [place] [facility] [address] [id number] [place] [address] October, [facility] [place] [facility] [address] [id number] [place] [address] October, [facility] [place] [facility] [address] [id number] [place] [address] October, [facility] [address] [id number] [place] [address] October, [facility] [place] [facility] [address] [id number] [place] [address] October, [facility] [place] [facility] [address] [id number] [place] [address] October, [facility] [place] [facility] [address] [id number] [place] [address] 1007 Sep, [facility] [place] [facility] [address] [id number] [place] [address]- [address] Sep, [facility] [place] [facility] [address] [id number] [place] [address] Sep, [facility] [place] [facility] [address] [id number] [place] [address] Sep, [facility] [place] [facility] [address] [id number] [place] [address] 24 Sep, 2011 [facility] [place] [facility] [address] [id number] [place] [address] 19 Sep, 2011 [facility] [place] [facility] [address] [id number] [place] [address] 17 Sep, 2011 [facility] [place] [facility] [address] [id number] [place] [address]- [address] 16 Sep, 2011 [facility] [place] [facility] [address] [id number], [place] [address] 16 Sep, 2011 [facility] [address] [id number] [place] [address]- [address] 14 Sep, 2011 [facility] [place] [facility] [address] [id number] [place] [address]- [address] 13 Sep, 2011 [facility] [place] [facility] [address] [facility] [id number] [place] [address] 9466 10 Sep, 2011 [facility] [place] [facility] [address] [id number] [place] [address]- 0[address] 09 Sep, 2011 [facility] [place] [facility] [address] [id number] [place] [address]- [address] 27 Aug, 2011 [facility] [place] [facility] [address] [facility] [id number] [place] [address]- [address]54 12 Aug, 2011 [facility] [id number] [place] [address] 08 Aug, 2011 [facility] [place] [facility] [id number] [place] [address] 06 Aug, 2011 [facility] [place] [facility] [id number] [place] [address] 28 Jul, 2011 [facility] [place] [facility] [id number] [place] [address] 22 Jul, 2011 [facility] [place] [facility] [id number] [place] [address]- [address] 16 Jul, 2011 [facility] [place] [facility] [address] [facility] [id number] [place] [address]- 8881 15 Jul, 2011 [facility] [place] [facility] [address] [id number] [place] [address]- 67[address] 14 Jul, 2011 [facility] [place] [facility] [address] [facility] [facility] [id number] [place] [address]- 8401 10 Jul, 2011 [facility] [place] [facility] [id number] [place] [address]- [address] 30 Jun, 2011 [facility] [place] [facility] [address] [id number] [place] [address]- [address]702 Jun, [facility] [place] [facility] [address] [id number] [place] [address]- [address] Jun, [facility] [place] [facility] [address] [id number] [place] [address]- 45[address] Jun, [facility] [place] [facility] [address] [id number] [place] [address]- 8[address] Jun, [facility] [address] [id number] [place] [address] May, [facility] [place] [facility] [address] [id number] [place] [address] May, [facility] [address] [id number] [place] [address] May, [facility] [address] [id number] [place] [address] 14 May, 2011 [facility] [place] [facility] [address] [id number] [place] [address] May, [facility] [address] [id number] [place] [address] May, [facility] [place] [facility] [address] [id number] [place] [address] May, [facility] [place] [facility] [address] [id number], [place] [address] 15 Apr, 2011 [facility] [place] [facility] [address] [id number] [place] [address] Apr, [facility] [place] [facility] [address] [id number] [place] [address] Apr, [facility] [place] [facility] [address] [id number] [place] [address] 07 Apr, 2011 [facility] [place] [facility] [address] [id number], [place] [address] Apr, [facility] [place] [facility] [address] [id number] [place] [address] Apr, [facility] [place] [facility] [address] [id number] [place] [address] Mar, [facility] [place] [facility] [address] [id number] [place] [address] Mar, [facility] [place] [facility] [address] [id number] [place] [address] Mar, [facility] [place] [facility] [address] [id number] [place] [address] Mar, [facility] [place] [facility] [address] [id number] [place] [address] Jan, [facility] [place] [facility] [address] [id number] [place] [address] Dec, [facility] [place] [facility] [address] [id number] [place] [address] Dec, [facility] [place] [facility] [address] [facility] [id number] [place] [address] October, [facility] [place] [facility] [address] [facility] [id number] [place] [address] Sep, [facility] [place] [facility] [address] [id number] [place] [address] Sep, [facility] [place] [facility] [address] [id number] [place] [address] 4765 Jul, [facility] [place] [facility] [address] [id number] [place] [address] 16 Jul, 2010 [facility] [place] [facility] [address] [id number] [place] [address] May, [facility] [place] [facility] [address] [id number] [place] [address] May, [facility] [place] [facility] [address] [id number] [place] [address] 08 May, 2010 [facility] [place] [facility] [address] [id number] [place] [address] May, [facility] [place] [facility] [address] [id number] [place] [address] Apr, [facility] [place] [facility] [address] [id number] [place] [address] Apr, [facility] [place] [facility] [address] [id number] [place] [address] Apr, [facility] [place] [facility] [address] [id number] [place] [address] Apr, [facility] [place] [facility] [address] [id number] [place] [address] Apr, [facility] [place] [facility] [address] [id number] [place] [address] Mar, [facility] [place] [facility] [address] [id number] [place] [address] 14 Mar, 2010 [facility] [place] [facility] [address] [id number] [place] [address] Mar, [facility] [place] [facility] [address] [id number] [place] [address] Mar, [facility] [place] [facility] [address] [id number] [place] [address] Jan, [facility] [place] [facility] [address] [id number] [place] [address]25 15 Dec, 2009 [facility] [place] [facility] [address] [id number] [place] [address] 10 Sep, 2009 [facility] [place] [facility] [address] [id number] [place] [address] 08 May, 2009 [facility] [place] [facility] [address] [id number] [place] [address] May, [facility] [id number] [address] May, [facility] [id number] [address] Apr, [facility] [id number] [address] Apr, [facility] [id number] [place] [address]29[address] Apr, [facility] [id number] [place] [address] 471447- [address] Apr, [facility] [id number] [place] [address]- [address] Apr, [facility] [id number] [place] [address]278- 8373 Mar, [facility] [id number] [place] [address]- [address] Mar, [facility] [id number], [place] [address] Jul, IMMUNIZATIONS No Known Immunizations SOCIAL HISTORY Never Assessed REASON FOR VISIT [place]-[facility] [place] OF CARE VITAL SIGNS MEDICATIONS Unknown [...] the January before. 03/2018 Hospitalization History [facility] 12/20/15 Hospitalization History [facility]- Abd pain 03/07/2017 Hospitalization History [facility]- Abd pain 03/14/2017 Hospitalization History [facility]- No bowel movement, rash 04/13/2017 Hospitalization History [facility]- Abd pain r/t kidney surgery on 04/17/2017 Hospitalization History [facility]- Abd pain r/t kidney surgery on 04/18/2017 Hospitalization History [facility]- Lower abd pain 04/30/2017 Hospitalization History [facility]- Cannot urinate 05/30/2017 Hospitalization History [facility]- Pancreatitis Sx 06/29/2017 Hospitalization History [facility]- Stomach pain 07/22/2017 Hospitalization History [facility]- Left side pain 08/12/2017 Hospitalization History [facility]- Incision site infection 08/30/[address] [facility]- Post Op Seroma/Hematoma Left Abdomen. Discharged 09/04/17- Dr Daniel 09/02/2017 Hospitalization History [facility]- Right shoulder and back pain 2017 Hospitalization History [facility]- Shoulder/Back pain 11/11/2017 Hospitalization History [facility]- Right shoulder blade pain 12/04/2017 Hospitalization History [facility]- C-Diff 12/13/2017 Hospitalization History C diff et MRSA 12/27/2017
--- OUTSIDE RECORDS SUMMARY | 2018-10-14 14:28 | XMS REPORT ---
Author Author SAI CARMEN [facility] Address [address] [place] [address] Care Team Providers Care Coal Equipment Operator Name Role Phone CORTNEY GIBBSHANY Unavailable PROBLEMS Type Condition ICD9-CM Code AFY81-YH Code Onset Dates Condition Status SNOMED Code Problem Chronic tension-type headache, intractable G44.221 Active 479348032 Problem Right carpal tunnel syndrome G56.01 Active 685543445722814 Problem Hyperlipidemia, mixed E78.2 Active 890996205 Problem Morbid (severe) obesity due to excess calories E66.01 Active 834191583 Problem FH: polycystic ovary Z84.2 Active 992754154 Problem Hirsuties L68.0 Active 608051909 Problem Asthma J45.909 Active 403344618 Problem Chronic pancreatitis K86.1 Active 941901783 Problem Trichotillomania F63.3 Active 37093347 Problem Restless leg syndrome G25.81 Active 25321583 Problem Generalized social phobia F40.11 Active 46322837 Problem Primary osteoarthritis of right knee M17.11 Active 609443272311404 Problem Atelectasis J98.11 Active 46955517 Problem History of renal cell carcinoma Z85.528 Active 034421329 Problem Obesities, morbid E66.01 Active 897674302 Problem Polydipsia R63.1 Active 80056775 Problem Nodule of left lung R91.1 Active 410255538 Problem Chronic post-traumatic stress disorder (PTSD) F43.12 Active 586680300 Problem Moderate episode of recurrent major depressive disorder F33.1 Active 089278062 Problem Chronic fatigue R53.82 Active 42733650 Problem Intestinal malabsorption, unspecified K90.9 Active 37098049 ALLERGIES No Information ENCOUNTERS Encounter Location Date Diagnosis [facility] [address] [facility] [id number] [address] Sep, [facility] [address] [address] Sep, Lower extremity edema R60.0 [facility] [id number] [address] Sep, [facility] [id number] [address] Sep, Lower extremity edema R60.0 and Morbid obesity E66.01 [facility] [id number] [address] Sep, [facility] [address] [address] Sep, [facility] [id number] [place] [address] 62243- 0686 Aug, [facility] [id number] [place] [address] 67507- 8999 Aug, Obesities, morbid E66.01 and Morbid obesity E66.01 [facility] [address] [address] Aug, [address] [address] Jul, [facility] [id number] [address] Jul, [facility] [id number] [address] Jul, [facility] [address] [address] Jul, [facility] [id number] [address] Jul, Numbness of right hand R20.0 [facility] [id number] [address] Jul, Numbness of right hand R20.0 [facility] [id number] [address] Jul, [facility] [id number] [place] [address] 15914- 5472 Jul, [facility] [id number] [place] [address] 06112- 8679 Jul, Right-sided thoracic back pain M54.6 [facility] [id number] [place] [address] 57551- 0589 Jul, [facility] [id number] [place] [address] 50133- 6387 Jul, [facility] [id number] [place] [address] 38914- 8972 Jul, [facility] [id number] [place] [address] 55219- 5514 Jul, [facility] [id number] [place] [address] 10067- 3971 Jun, [facility] [id number] [place] [address] 96803- 3491 Jun, Acute pain of right shoulder M25.511 ; Numbness of right hand R20.0 and Trapezius muscle spasm M62.838 [facility] [id number] [address] 24[address] Jun, [facility] [id number] [place] [address] 95509- 4789 Jun, [facility] [id number] [place] [address] 87954- 4362 Jun, Cough R05 ; BMI 50.0-59.9, adult Z68.43 and Morbid obesity E66.01 [facility] [id number] [place] [address] 02259- 9320 Jun, [facility] [id number] [place] [address] 91383- 0659 14 Jun, 2018 [facility] [id number] [place] [address] 47193 -0018 13 Jun, 2018 BMI 45.0-49.9, adult Z68.42 and Acute non-recurrent maxillary sinusitis J01.00 [facility] [id number] [place] [address] 77398 -4158 09 Jun, 2018 Acute sinusitis J01.90 ; Dysuria R30.0 and BMI 45.0-49.9, adult Z68.42 [facility] [id number] [place] [address] 75297- 1397 Jun, [facility] [address] [address]226- 1235 Jun, [facility] [id number] [place] [address] 37322- 6585 May, [facility] [address] 17101- 9735 May, [facility] [id number] [place] [address] 62393- 0524 May, [facility] [id number] [place] [address] 02752- 6423 May, [facility] [id number] [place] [address] 40739- 2319 May, [facility] [id number] [place] [address] 21180- 3245 Apr, Generalized social phobia F40.11 ; Trichotillomania F63.3 ; Chronic post-traumatic stress disorder (PTSD) F43.12 and BMI 45.0-49.9, adult Z68.42 [facility] [id number] [place] [address] 55253- 6709 Apr, [facility] [id number] [place] [address] 89693- 4313 Apr, Chronic tension-type headache, intractable G44.221 [facility] [id number] [place] [address] 07392- 4394 Apr, [facility] [id number] [place] [address] 11306 -7502 Mar, [facility] [id number] [place] [address] 58243 -4672 Mar, BMI 45.0-49.9, adult Z68.42 and Pimples R23.8 [place] [id number] [place] [address] 01845- 9404 Mar, [place] [id number] [place] [address] 60521- 1125 Mar, [place] [id number] [place] [address] 37900- 9691 Mar, Decreased urination R34 ; Chronic fatigue R53.82 ; Peripheral edema R60.9 ; Diarrhea, unspecified type R19.7 ; Non-intractable vomiting with nausea, unspecified vomiting type R11.2 ; BMI 45.0-49.9, adult Z68.42 and Chronic post-traumatic stress disorder (PTSD) F43.12 [place] [id number] [place] [address] 09619- 2330 Mar, Intestinal malabsorption, unspecified K90.9 ; Diarrhea, unspecified R19.7 ; Urinary urgency R39.15 ; Rectal bleeding K62.5 and Decreased urine output R34 [place] [id number] [place] [address] 52431- 3274 Mar, Decreased urine output R34 [place] [id number] [place] [address] 69427- 1103 Mar, Rectal bleeding K62.5 [place] [id number] [place] [address] 38907- 7976 Mar, Rectal bleeding K62.5 [place] [id number] [place] [address] 61651- 5172 Mar, Urinary urgency R39.15 [facility] [id number] [place] [address] 95392- 6075 Mar, Urinary urgency R39.15 [facility] [id number] [place] [address] 99785- 2111 Mar, Primary osteoarthritis of right knee M17.11 and BMI 45.0- 49.9, adult Z68.42 [facility] [id number] [place] [address] 25522- 4623 Mar, [facility] [id number] [place] [address] 45798- 6502 Feb, Left upper arm pain M79.622 [facility] [id number] [place] [address] 89315- 6726 Feb, [facility] [address] 48369- 8928 Jan, Acute pain of right knee M25.561 ; Right upper quadrant abdominal pain R10.11 and BMI 45.0-49.9, adult Z68.42 [facility] [id number] [place] [address] 43297- 0875 Jan, [facility] [id number] [place] [address] 88159- 5605 Jan, [facility] [id number] [place] [address] 97393- 2453 Dec, [facility] [id number] [place] [address] 98475- 3173 Dec, Intestinal malabsorption, unspecified K90.9 and Diarrhea, unspecified R19.7 [facility] [id number] [place] [address] 73709- 8212 Dec, [facility] [id number] [place] [address] 64176- 4363 Dec, Strep throat J02.0 ; Intestinal malabsorption, unspecified K90.9 ; Diarrhea, unspecified R19.7 ; Postoperative seroma involving digestive system after non-digestive system procedure K91.873 ; Hyperlipidemia, mixed E78.2 and BMI 45.0-49.9, adult Z68.42 [facility] [id number] [address]- 2[address] Dec, [facility] [id number] [place] [address] 43668- 2098 Dec, Nausea R11.0 [facility] [id number] [place] [address] 70501- 0785 Dec, [facility] [id number] [place] [address] 64821 -3420 Dec, Sore throat J02.9 ; Strep throat J02.0 and BMI 45.0-49.9, adult Z68.42 [facility] [id number] [place] [address] 10527- 1565 Dec, [facility] [id number] [place] [address] 58081- 4119 Dec, [facility] [id number] [place] [address] 55741- 2874 Dec, [facility] [id number] [place] [address] 53423- 7544 Dec, [facility] [id number] [place] [address] 76478- 5377 Dec, [facility] [id number] [place] [address] 53914- 9966 Dec, [facility] [id number] [place] [address] 98822- 7933 Dec, [facility] [id number] [place] [address] 63809- 7573 Dec, [facility] [id number] [place] [address] 13921- 8872 Dec, Clostridium difficile colitis A04.72 ; Intractable vomiting with nausea, unspecified vomiting type R11.2 and BMI 45.0-49.9, adult Z68.42 [place] [id number] [place] [address] 75234- 2645 Dec, [facility] [id number] [place] [address] 56888- 5579 Nov, [facility] [address] 27497- 8396 Nov, [facility] [id number] [place] [address] 89544- 1760 Nov, [place] [id number] [place] [address] 73525- 4455 Nov, [facility] [place] [id number] [place] [address] 83243 -3862 Nov, [facility] [id number] [place] [address] 97317- 6996 Nov, Hyperlipidemia, mixed E78.2 [facility] [place] [id number] [place] [address] 19829 -5954 Nov, Acute suppurative otitis media of right ear without spontaneous rupture of tympanic membrane, recurrence not specified H66.001 and BMI 45.0-49.9, adult Z68.42 [place] [id number] [place] [address] 65417- 1384 Nov, Hyperlipidemia, mixed E78.2 [facility] [id number] [place] [address] 62477- 9731 Nov, [facility] [address] 15138- 2009 Nov, [facility] [id number] [place] [address] 60343- 8837 Nov, Nodule of left lung R91.1 [place] [id number] [address]- 5727 Nov, Medicare annual wellness visit, initial Z00.00 [...] adult Z68.42 and Encounter for immunization Z23 [id number] [place] [address] 64727- 3117 October, [place] [address] [id number] [place] [address] 05333- 8036 October, Nodule of left lung R91.1 [id number] [place] [address] 71856- 1374 October, Nodule of left lung R91.1 [place] [id number] [place] [address] 61359- 7709 October, Recurrent major depressive disorder, in partial remission F33.41 ; Restless leg syndrome G25.81 ; Generalized social phobia F40.11 ; Chronic post-traumatic stress disorder (PTSD) F43.12 ; BMI 45.0-49.9, adult Z68.42 and Trichotillomania F63.3 [place] [id number] [place] [address] 53078- 9098 October, [place] [address] [id number] [place] [address] 05466- 8143 Sep, Chronic fatigue R53.82 and BMI 45.0-49.9, adult Z68.42 [place] [id number] [place] [address] 21715- 2228 Aug, [place] [id number] [place] [address] 15362- 4249 Jul, Restless leg syndrome G25.81 and B12 deficiency E53.8 [place] [id number] [place] [address] 89622- 0447 Jul, [place] [id number] [place] [address] 85850- 8396 Jul, [place] [address] 12190- 6083 Jun, [place] [id number] [place] [address] 63325- 4128 Jun, Fatigue, unspecified type R53.83 ; History of renal cell carcinoma Z85.528 ; Chronic pancreatitis K86.1 ; Restless leg syndrome G25.81 ; Dark urine R82.99 and BMI 45.0-49.9, adult Z68.42 [place] [id number] [place] [address] 98752- 6884 Jun, [place] [id number] [place] [address] 23544- 2585 Jun, [place] [id number] [place] [address] 39747- 4071 Jun, [place] [id number] [place] [address] 86710- 9191 Jun, [place] [id number] [place] [address] 29754- 9642 May, Chronic post-traumatic stress disorder (PTSD) F43.12 ; Moderate episode of recurrent major depressive disorder F33.1 ; Trichotillomania F63.3 and Generalized social phobia F40.11 [place] [id number] [place] [address] 94511- 5207 May, [place] [id number] [place] [address] 56638- 1834 May, Chronic post-traumatic stress disorder (PTSD) F43.12 ; Moderate episode of recurrent major depressive disorder F33.1 ; Trichotillomania F63.3 and Generalized social phobia F40.11 [place] [address] [place] [address] 77422- 2490 May, Hyperlipidemia, mixed E78.2 ; Morbid (severe) obesity due to excess calories E66.01 ; Chronic post-traumatic stress disorder (PTSD) F43.12 ; Moderate episode of recurrent major depressive disorder F33.1 ; Trichotillomania F63.3 and Generalized social phobia F40.11 [place] [id number] [address]- 7570 30 Apr, 2017 [place] [id number] [place] [address] 31846- 0623 29 Apr, 2017 Hyperlipidemia, mixed E78.2 ; Morbid (severe) obesity due to excess calories E66.01 ; Chronic post-traumatic stress disorder (PTSD) F43.12 ; Moderate episode of recurrent major depressive disorder F33.1 ; Trichotillomania F63.3 and Generalized social phobia F40.11 [place] [address] [address]- 5428 Apr, Trichotillomania F63.3 ; Generalized social phobia F40.11 ; Chronic post-traumatic stress disorder (PTSD) F43.12 and Moderate episode of recurrent major depressive disorder F33.1 [place] [address] [address]- 6772 Apr, [place] [id number] [address]- 3854 Apr, [place] [id number] [place] [address] 12738- 9267 Mar, Moderate episode of recurrent major depressive disorder F33.1 ; Trichotillomania F63.3 ; Chronic post-traumatic stress disorder (PTSD) F43.12 ; Generalized social phobia F40.11 and Restless leg syndrome G25.81 [place] [id number] [place] [address] 65235- 5633 Mar, [facility] [id number] [place] [address] 11745- 7287 Mar, [facility] [id number] [place] [address] 19986- 4416 Feb, Left kidney mass N28.89 [facility] [id number] [place] [address] 31022- 4950 Jan, [facility] [id number] [place] [address] 57614- 2582 Dec, Polydipsia R63.1 ; Chronic pancreatitis K86.1 and Fatigue, unspecified type R53.83 [facility] [id number] [place] [address] 47093- 1140 Nov, [facility] [id number] [place] [address] 50950- 4258 Nov, [facility] [id number] [place] [address] 78904- 8846 Nov, Headache around the eyes R51 [facility] [id number] [place] [address] 54283- 0334 Nov, [facility] [id number] [place] [address] 29491- 6427 October, STD exposure Z20.2 [facility] [id number] [place] [address] 05622- 5063 October, STD exposure Z20.2 [facility] [address] [place] [address] 38995- 3336 October, Chronic post-traumatic stress disorder (PTSD) F43.12 ; Generalized social phobia F40.11 ; Trichotillomania F63.3 and Restless leg syndrome G25.81 [facility] [address] [address]- 9802 October, [facility] [id number] [address]- 7569 Sep, [facility] [id number] [place] [address] 75107- 4799 Aug, [facility] [id number] [place] [address] 48970- 6780 15 Aug, 2016 [place] [address] 29491- 5724 08 Aug, 2016 Neck mass R22.1 [place] [id number] [place] [address] 73823- 3766 Aug, Atelectasis J98.11 [place] [id number] [place] [address] 14856- 6103 28 Jul, 2016 Hyperlipidemia, mixed E78.2 ; Atypical pneumonia J18.9 and Neck mass R22.1 [place] [id number] [place] [address] 57282- 6296 15 Jul, 2016 Hemoptysis R04.2 [place] [id number] [place] [address] 02033- 9895 08 Jul, 2016 Acute non-recurrent pansinusitis J01.40 ; Hemoptysis R04.2 ; Polydipsia R63.1 and Malaise R53.81 [facility] [place] [id number] [place] [address] 13567 -9983 May, Other viral agents as the cause of diseases classified elsewhere B97.89 and Acute upper respiratory infection, unspecified J06.9 [facility] [id number] [place] [address] 28927 -1776 Mar, Nausea R11.0 [facility] [place] [id number] [place] [address] 54386 -0679 Dec, Hives L50.9 [place] [id number] [place] [address] 88342- 8954 Dec, [facility] [place] [id number] [address] -9315 10 Dec, 2015 Cutaneous abscess of limb, unspecified L02.419 ; Cellulitis of unspecified part of limb L03.119 ; Encounter for incision and drainage procedure Z01.89 and Encounter for recheck of abscess following incision and drainage Z09 [facility] [place] [id number] [place] [address] 97702 -7218 09 Dec, 2015 Abscess of leg, right L02.415 [place] [id number] [place] [address] 37259- 4142 08 Dec, 2015 Cellulitis of unspecified part of limb L03.119 and Cutaneous abscess of limb, unspecified L02.419 [place] [id number] [place] [address] 72390- 2515 Dec, [place] [id number] [place] [address] 48125- 1568 Dec, [facility] [place] [id number] [place] [address] 33904 -9869 Aug, [place] [id number] [place] [address] 94560- 9383 Aug, [facility] [place] [id number] [place] [address] 87938 -5757 Jul, Pain in unspecified wrist M25.539 and Back pain, thoracic M54.6 [facility] [place] [id number] [place] [address] 05329 -6435 Jun, Strain of right wrist, initial encounter S66.911A [place] [id number] [place] [address] 11632- 5024 Jun, Chronic pancreatitis, unspecified pancreatitis type K86.1 ; Hirsuties L68.0 ; Morbid (severe) obesity due to excess calories E66.01 ; Chronic pancreatitis K86.1 and Asthma J45.909 [place] [id number] [place] [address] 15199- 4100 May, [facility] [id number] [place] [address] 43935- 1648 May, Hyperlipidemia, mixed E78.2 and Muscle spasm of back M62.830 [facility] [id number] [place] [address] [phone] Apr, [facility] [address] [phone]- [phone] Apr, Torticollis M43.6 [facility] [id number] [place] [address] [phone] Apr, Right-sided thoracic back pain M54.6 [facility] [id number] [place] [address] [phone] Mar, Rash R21 [facility] [id number] [place] [address] [phone] Mar, [facility] [id number] [place] [address] [phone] Jan, [facility] [id number] [place] [address] [phone]- 0451 Dec, [facility] [id number] [place] [address] [phone]- 7592 Dec, Urinary frequency 788.41 and Nocturia more than twice per night 788.43 [facility] [id number] [place] [address]- 2612 Nov, [facility] [id number] [place] [address] 00692- 8799 Nov, [facility] [id number] [place] [address] 79913- 7439 Nov, Abdominal pain 789.00 [facility] [id number] [place] [address] 61491- 2540 October, TDAP DX V06.1 [facility] [address] [facility] [id number] [place] [address] 5936 October, [facility] [address] [id number] [place] [address] 7326 October, Disturbance of skin sensation 782.0 ; Wrist pain, right 719.43 ; Hyperlipidemia 272.4 and Skin lesion of face 709.9 [facility] [address] [facility] [id number] [place] [address]- 0426 Sep, [facility] [address] [facility] [id number] [place] [address]- 7336 Sep, [facility] [id number] [place] [address]- 0596 Aug, [facility] [address] [id number] [place] [address]- 0946 Aug, [facility] [id number] [place] [address]- 1271 Aug, [facility] [address] [id number] [place] [address]- 7030 Aug, [facility] [id number] [place] [address]- 3006 Aug, [facility] [address] [id number] [place] [address]- 2706 16 Aug, 2014 [facility] [address] [id number] [place] [address]- 7216 14 Aug, 2014 [facility] [address] [facility] [id number] [place] [address]- 2876 14 Aug, 2014 [facility] [id number] [place] [address]- 5126 Aug, [facility] [address] [facility] [id number] [place] [address]- 2546 Aug, [facility] [address] [id number] [address] 2440 Aug, [facility] [place] [facility] [address] [id number] [place] [address]- 2534 Aug, [facility] [place] [facility] [address] [id number] [place] [address]- 1628 Aug, [facility] [place] [facility] [address] [id number] [place] [address]- 7578 Aug, [facility] [place] [facility] [address] [id number] [place] [address]- 9067 Jul, [facility] [place] [facility] [address] [id number] [place] [address]- 7490 Jul, [facility] [place] [facility] [address] [id number] [place] [address]- 0021 Jul, [facility] [place] [facility] [address] [id number] [place] [address]- 0753 Jul, [facility] [place] [facility] [address] [id number] [place] [address]- 6886 Jul, [facility] [place] [facility] [address] [id number] [place] [address]- 1790 Jul, [facility] [place] [facility] [address] [id number] [place] [address]- 9598 Jun, [facility] [place] [facility] [address] [id number] [place] [address]- 9615 Jun, [facility] [place] [facility] [address] [id number] [place] [address]- 5785 Jun, [facility] [place] [facility] [address] [id number] [place] [address]- 8493 Jun, [facility] [place] [facility] [address] [id number] [place] [address]- 9032 Jun, [facility] [place] [facility] [address] [id number] [place] [address]- 5244 Jun, [facility] [place] [facility] [address] [id number] [place] [address]- 8792 15 Jun, 2014 [facility] [address] [id number] [place] [address]- 9452 15 Jun, 2014 [facility] [place] [facility] [address] [id number] [place] [address]- 9601 May, [facility] [address] [id number] [place] [address]- 8978 May, [facility] [place] [facility] [address] [id number] [place] [address]- 5689 May, [facility] [address] [id number] [place] 8200 May, [facility] [address] [id number] [place] [address]- 7031 May, [facility] [place] [facility] [address] [id number] [place] [address]- 5773 May, [facility] [address] [id number] [place] [address]- 4252 May, [facility] [place] [facility] [address] [id number] [place] [address]- 8269 May, [facility] [address] [id number] [place] [address]- 4201 May, [facility] [place] [facility] [address] [id number] [place] [address]- 4193 May, [facility] [place] [facility] [address] [id number] [place] [address]- 4592 May, [facility] [place] [facility] [address] [id number] [place] [address]- 4579 May, [facility] [place] [facility] [address] [id number] [place] [address]- 7082 Apr, [facility] [place] [facility] [address] [id number] [id number] 9477 Apr, [facility] [place] [facility] [address] [id number] [place] [address]- 5975 Apr, [facility] [place] [facility] [address] [id number] [place] [address]- 1702 Apr, [facility] [place] [facility] [address] [id number] [place] [address]- 6821 Apr, [facility] [place] [facility] [address] [id number] [place] [address]- 8110 Apr, [facility] [place] [facility] [address] [id number] [place] [address]- 0613 Apr, [facility] [place] [facility] [address] [id number] [place] [address]- 2472 Apr, [facility] [place] [facility] [address] [id number] [place] [address]- 1834 Apr, [facility] [place] [facility] [address] [id number] [place] [address]- 0753 Apr, [facility] [place] [facility] [address] [id number] [place] [address]- 7974 Apr, [facility] [place] [facility] [address] [id number] [place] [address]- 2095 Apr, [facility] [place] [facility] [address] [id number] [place] [address]- 4618 Mar, [facility] [place] [facility] [address] [id number] [address]- 8812 Mar, [facility] [place] [facility] [address] [id number] [place] [address]- 5819 Mar, [facility] [place] [facility] [address] [id number] [place] [address]- 4812 Mar, [facility] [place] [facility] [address] [id number] [place] [address]- 5811 10 Feb, 2014 [facility] [place] [facility] [address] [id number] [place] [address]- 3679 Feb, 2013 [facility] [place] [facility] [address] [id number] [place] [address]- 1116 05 Sep, 2013 [facility] [place] [facility] [address] [id number] [place] [address]- 5298 05 Feb, 2013 [facility] [place] [facility] [address] [id number] [place] [address]- 5912 05 Feb, 2013 [facility] [place] [facility] [address] [id number] [place] [address]- 4210 Feb, 2013 [facility] [place] [facility] [address] [id number] [place] [address]- 8301 Jan, [facility] [place] [facility] [address] [id number] [place] [address]- 4656 Jan, 2013 [facility] [place] [facility] [address] [id number] [place] [address]- 4705 Jan, 2013 [facility] [place] [facility] [address] [id number] [place] [address]- 7998 Jan, [facility] [place] [facility] [address] [id number] [place] [address]- 2239 Jan, [facility] [place] [facility] [address] [id number] [place] [address]- 5187 Jan, [facility] [place] [facility] [address] [id number] [place] [address]- 9456 Jan, [facility] [place] [facility] [address] [id number] [place] [address]- 1066 Jan, [facility] [place] [facility] [address] [id number] [place] [address]- 8754 Jan, [facility] [place] [facility] [address] [id number] [place] [address]- 5075 Jan, [facility] [place] [facility] [address] [id number] [place] [address]- 9408 Jan, [facility] [place] [facility] [address] [id number] [place] [address]- 9576 Jan, [facility] [place] [facility] [address] [id number] [place] [address]- 8810 Jan, [facility] [place] [facility] [address] [id number] [place] [address]- 1414 Jan, [facility] [place] [facility] [address] [id number] [place] [address]- 5763 Dec, [facility] [place] [facility] [address] [id number] [place] [address]- 8413 Dec, [facility] [place] [facility] [address] [id number] [place] [address]- 4721 Dec, [facility] [place] [facility] [address] [id number] [place] [address]- 1048 Dec, [facility] [place] [facility] [address] [id number] [place] [address]- 1435 Nov, [facility] [place] [facility] [address] [id number] [place] [address]- 1720 Nov, [facility] [place] [facility] [address] [id number] [place] [address]- 1154 Nov, [facility] [place] [facility] [address] [id number] [place] [address]- 0234 Nov, [facility] [place] [facility] [address] [id number] [place] [address]- 8086 Nov, [facility] [place] [facility] [address] [id number] [place] [address]- 3421 October, [facility] [place] [facility] [address] [id number] [place] [address]- 7637 October, [facility] [place] [facility] [address] [id number] [place] [address]- 4564 October, [facility] [place] [facility] [address] [id number] [place] [address]- 3264 October, [facility] [address] [id number] [place] [address]- 0339 October, [facility] [place] [facility] [address] [id number] [place] [address]- 8540 October, [facility] [place] [facility] [address] [id number] [place] [address]- 3887 October, [facility] [place] [facility] [address] [id number] [place] [address]- 2427 October, [facility] [place] [facility] [address] [id number] [place] [address]- 5893 October, [facility] [place] [facility] [address] [id number] [place] [address]- 4143 October, [facility] [place] [facility] [address] [id number] [place] [address]- 9832 October, [facility] [place] [facility] [address] [id number] [place] [address]- 1389 October, [facility] [place] [facility] [address] [id number] [place] [address]- 1058 October, [facility] [place] [facility] [address] [id number] [place] [address]- 4393 October, [facility] [place] [facility] [address] [id number] [place] [address]- 9762 Sep, [facility] [place] [facility] [address] [id number] [place] [address]- 7014 Sep, [facility] [place] [facility] [address] [id number] [place] [address]- 5028 Sep, [facility] [place] [facility] [address] [id number] [place] [address]- 3306 Sep, [facility] [place] [facility] [address] [id number] [place] [address]- 1991 Sep, [facility] [place] [facility] [address] [id number] [place] [address]- 3657 Sep, [facility] [place] [facility] [address] [id number] [place] [address]- 9349 Sep, [facility] [place] [facility] [address] [id number] [place] [address]- 3315 Sep, [facility] [place] [facility] [address] [id number] [place] [address]- 4555 Sep, [facility] [place] [facility] [address] [id number] [place] [address]- 2859 Sep, [facility] [place] [facility] [address] [id number] [place] [address]- 4983 Sep, [facility] [place] [facility] [address] [id number] [place] [address]- 8619 Sep, [facility] [place] [facility] [address] [id number] [place] [address]- 3623 Sep, [facility] [place] [facility] [address] [id number] [place] [address]- 3019 Sep, [facility] [place] [facility] [address] [id number] [place] [address]- 7737 Sep, [facility] [place] [facility] [address] [id number] [place] [address]- 6383 Aug, [facility] [place] [facility] [address] [id number] [place] [address]- 4693 Aug, [facility] [place] [facility] [address] [id number] [place] [address]- 4704 Aug, [facility] [place] [facility] [address] [id number] [place] [address]- 9565 Aug, [facility] [place] [facility] [address] [id number] [place] [address]- 6551 Jul, [facility] [place] [facility] [address] [id number] [place] [address]- 8467 Jul, [facility] [address] [id number] [place] [address]- 8008 06 Jul, 2013 [facility] [place] [facility] [address] [id number] [place] [address]- 6796 Jul, [facility] [place] [facility] [address] [id number] [place] [address]- 0314 15 Jun, 2013 [facility] [place] [facility] [address] [id number] [place] [address]- 7846 Jun, [facility] [place] [facility] [address] [id number] [place] [address]- 6170 Jun, [facility] [place] [facility] [address] [id number] [place] [address]- 8805 Jun, [facility] [place] [facility] [address] [id number] [place] [address]- 0021 Jun, [facility] [place] [facility] [address] [id number] [place] [address]- 9345 Jun, [facility] [place] [facility] [address] [id number] [place] [address]- 3931 Jun, [facility] [place] [facility] [address] [id number] [place] [address]- 8066 Jun, [facility] [place] [facility] [address] [id number] [place] [address]- 5642 May, [facility] [place] [facility] [address] [id number] [place] [address]- 3085 May, [facility] [place] [facility] [address] [id number] [place] [address]- 2763 18 May, 2013 [facility] [place] [facility] [address] [id number] [place] [address]- 7414 18 May, 2013 [facility] [place] [facility] [address] [id number] [place] 8497 17 May, 2013 [facility] [place] [facility] [address] [id number] [id number] 17 May, 2013 [facility] [address] [id number] [place] 1385 17 May, 2013 [facility] [address] [id number] [place] [address]- 8393 17 May, 2013 [facility] [address] [id number] [place] 0881 16 May, 2013 [facility] [address] [id number] [place]- 8695 16 May, 2013 [facility] [address] [id number] [place] 6733 14 May, 2013 [facility] [address] [id number] [place] [address]- 5192 14 May, 2013 [facility] [address] [id number] [place] [address]- 7427 13 May, 2013 [facility] [place] [facility] [address] [id number] [place] [address]- 2616 13 May, 2013 [facility] [address] [id number] [place] [address]- 1000 12 May, 2013 [facility] [place] [facility] [address] [id number] [place] [address]- 2912 12 May, 2013 [facility] [address] [id number] [place] [address]- 7134 11 May, 2013 [facility] [place] [facility] [address] [id number] [place] [address]- 4938 11 May, 2013 [facility] [place] [facility] [address] [id number] [place] [address]- 6192 Apr, [facility] [place] [facility] [address] [id number] [place] 2578 Apr, [facility] [place] [facility] [address] [facility] [id number] [place] [address]- 4425 Apr, [facility] [place] [facility] [address] [id number] [place] [address]- 2040 Apr, [facility] [address] [id number] [place] [address]- 9935 27 Aug, 2012 [facility] [place] [facility] [address] [id number] [place] [address] 2546 Aug, [facility] [address] [id number] [place] [address] 2546 06 Aug, 2012 [facility] [place] [facility] [address] [id number] [place] [address] 2548 05 Aug, 2012 [facility] [place] [facility] [address] [id number] [place] [address]- 8169 04 Jul, 2012 [facility] [place] [facility] [address] [id number] [place] [address]- 6501 Jun, [facility] [address] [id number] [place] [address]- 9899 Jun, [facility] [address] [id number] [place] [address]- 7525 Jun, [facility] [address] [id number] [place] [address]- 6334 Jun, [facility] [address] [id number] [place] [address]- 9805 May, [facility] [place] [facility] [address] [id number] [place] [address]- 3697 May, [facility] [place] [facility] [address] [id number] [place] [address]- 2547 May, [facility] [place] [facility] [address] [id number] [place] [address]- 7836 May, [facility] [place] [facility] [address] [id number] [place] [address]- 2546 May, [facility] [place] [facility] [address] [id number] [place] [address]- 6141 May, [facility] [place] [facility] [address] [id number] [place] [address]- 1614 May, [facility] [place] [facility] [address] [id number] [place] [address]- 2972 Apr, [facility] [place] [facility] [address] [facility] [id number] [place] [address]- 8045 Apr, [facility] [place] [facility] [address] [id number] [place] [address]- 4692 Apr, [facility] [place] [facility] [address] [id number] [place] [address]- 1976 Apr, [facility] [place] [facility] [address] [id number] [place] [address], [place] [address]- 5139 Apr, [facility] [place] [facility] [address] [facility] [id number] [place] [address]- 4369 Apr, [facility] [place] [facility] [address] [id number] [place] [address]- 7760 Apr, [facility] [place] [facility] [address] [id number] [place] [address]- 5098 Mar, [facility] [place] [facility] [address] [facility] [id number] [place] [address]- 49[address] Mar, [facility] [place] [facility] [address] [id number] [place] [address] Mar, [facility] [place] [facility] [address] [id number] [place] [address] Mar, [facility] [place] [facility] [address] [id number] [place] [address] Mar, [facility] [place] [facility] [address] [facility] [id number] [place] [address] Mar, [facility] [place] [facility] [address] [facility] [id number] [place] [address] Mar, [facility] [place] [facility] [address] [id number] [place] [address] Mar, [facility] [place] [facility] [address] [id number] [place] [address] Mar, [facility] [place] [facility] [address] [id number] [place] [address] Mar, [facility] [place] [facility] [address] [id number] [place] [address] Mar, [facility] [place] [facility] [address] [id number] [place] [address] Mar, [facility] [place] [facility] [address] [id number] [place] [address] Feb, [facility] [place] [facility] [address] [id number] [place] [address] Jan, [facility] [place] [facility] [address] [id number] [place] [address] Jan, [facility] [place] [facility] [address] [id number] [place] [address] Jan, [facility] [place] [facility] [address] [id number] [place] [address] Jan, [facility] [place] [facility] [address] [facility] [id number] [place] [address] Jan, [facility] [place] [facility] [address] [id number] [place] [address] Dec, [facility] [place] [facility] [address] [id number] [place] [address]- [address] Dec, [facility] [place] [facility] [address] [id number] [place] [address]- [address] Nov, [facility] [place] [facility] [address] [id number] [place] [address] Nov, [facility] [place] [facility] [address] [id number] [place] [address]- [address] Nov, [facility] [place] [facility] [address] [id number] [place] [address] October, [facility] [address] [id number] [place] [address] October, [facility] [address] [id number] [place] [address] October, [facility] [address] [id number] [place] [address] October, [facility] [address] [id number] [place] [address] October, [facility] [address] [id number] [place] [address] October, [facility] [address] [id number] [place] [address] 235[address] October, [facility] [address] [id number] [place] [address] Sep, [facility] [address] [id number] [place] [address] Sep, [facility] [address] [id number] [place] [address]- [address] Sep, [facility] [address] [id number] [place] [address]- [address] Sep, [facility] [address] [id number] [place] [address]- [address] 24 Sep, 2011 [facility] [address] [id number] [place] [address]- [address] 19 Sep, 2011 [facility] [place] [facility] [address] [id number] [place] [address]- [address] 17 Sep, 2011 [facility] [address] [id number] [place] [address]- [address]58 16 Sep, 2011 [facility] [address] [id number] [place] [address]- [address]46 16 Sep, 2011 [facility] [place] [facility] [address] [id number] [place] [address]- 8946 14 Sep, 2011 [facility] [place] [facility] [address] [id number] [place] [address]- [address]676 13 Sep, 2011 [facility] [place] [facility] [address] [id number] [place] [address]- 3316 10 Sep, 2011 [facility] [place] [facility] [address] [id number] [place] [address]- 4[address] 09 Sep, 2011 [facility] [place] [facility] [address] [id number] [place] [address]- [address] 27 Aug, 2011 [facility] [place] [facility] [address] [id number] [place] [address]- [address] 12 Aug, 2011 [facility] [place] [facility] [address] [id number] [place] [address]- [address] 08 Aug, 2011 [facility] [place] [facility] [address] [id number] [place] [address]- 6[address] 06 Aug, 2011 [facility] [place] [facility] [address] [id number] [place] [address]- 3769 28 Jul, 2011 [facility] [place] [facility] [address] [id number] [place] [address]- [address] 22 Jul, 2011 [facility] [place] [facility] [address] [id number] [place] [address]- 1476 16 Jul, 2011 [facility] [place] [facility] [address] [id number] [place] [address]- 8639 15 Jul, 2011 [facility] [place] [facility] [address] [id number] [place] [address]- [address]146 14 Jul, 2011 [facility] [place] [facility] [address] [id number] [place] [address]- [address] 10 Jul, 2011 [facility] [place] [facility] [address] [facility] [id number] [place] [address]- [address]345 30 Jun, 2011 [facility] [place] [facility] [address] [id number] [place] [address]- 134[address] Jun, [facility] [place] [facility] [address] [id number] [place] [address]- 3031 Jun, [facility] [place] [facility] [address] [id number] [place] [address]- 9358 Jun, [facility] [place] [facility] [address] [id number] [place] [address]- [address] Jun, [facility] [place] [facility] [address] [id number] [place] [address]- 73[address] May, [facility] [place] [facility] [address] [id number] [place] [address]- [address] May, [facility] [place] [facility] [address] [id number] [place] [address]- 7937 May, [facility] [place] [facility] [address] [id number] [place] [address]- [address] May, [facility] [place] [facility] [address] [id number] [place] [address] 1944 May, [facility] [place] [facility] [address] [id number] [place] [address]- [address] May, [facility] [place] [facility] [address] [id number] [place] [address]- 3600 May, [facility] [place] [facility] [address] [id number] [place] [address] Apr, [facility] [place] [facility] [address] [id number] [place] [address] 15 Apr, 2011 [facility] [place] [facility] [address] [id number] [place] [address] 07 Apr, 2011 [facility] [place] [facility] [address] [id number] [place] [address] 07 Apr, 2011 [facility] [place] [facility] [address] [id number] [place] [address] Apr, [facility] [place] [facility] [address] [id number] [place] [address] Apr, [facility] [place] [facility] [address] [id number] [place] [address] Mar, [facility] [place] [facility] [address] [id number] [place] Mar, [facility] [place] [facility] [address] [id number] [place] [address] Mar, [facility] [place] [facility] [address] [id number] [place] [address] Mar, [facility] [place] [facility] [address] [id number] [place] [address] Jan, [facility] [place] [facility] [address] [id number] [place] [address] Dec, [facility] [place] [facility] [address] [id number] [place] [address] Dec, [facility] [place] [facility] [address] [id number] [place] [address] October, [facility] [place] [facility] [address] [id number] [place] [address] Sep, [facility] [place] [facility] [address] [id number] [place] [address] 14 Sep, 2010 [facility] [place] [facility] [address] [id number] [place] [address] 17 Jul, 2010 [facility] [place] [facility] [address] [id number] [place] [address] 16 Jul, 2010 [facility] [place] [facility] [address] [id number] [place] [address] May, [facility] [place] [facility] [address] [id number] [place] [address] May, [facility] [place] [facility] [address] [id number] [place] [address] 08 May, 2010 [facility] [address] [id number] [place] [address] May, [facility] [place] [facility] [address] [id number] [place] [address] Apr, [facility] [address] [id number] [place] [address] Apr, [facility] [place] [facility] [address] [id number] [place] [address] Apr, [facility] [address] [id number] [place] [address] Apr, [facility] [address] [id number] [place] [address] Apr, [facility] [address] [id number] [place] [address] Mar, [facility] [address] [id number] [place] [address] 14 Mar, 2010 [facility] [address] [id number] [place] [address] 13 Mar, 2010 [facility] [address] [facility] [id number] [place] [address] Mar, [facility] [place] [facility] [address] [id number] [place] [address] Jan, [facility] [place] [facility] [address] [id number] [place] [address] 15 Dec, 2009 [facility] [place] [facility] [address] [id number] [place] [address] 10 Sep, 2009 [facility] [place] [facility] [address] [id number] [place] [address] 08 May, 2009 [facility] [place] [facility] [address] [id number] [place] [address] May, [facility] [id number] [address] May, [facility] [id number] [address] Apr, [facility] [id number] [address] Apr, [facility] [id number] [address] Apr, [facility] [id number] [address] Apr, [facility] [id number] [place] [address] Apr, [facility] [id number] [address] Mar, [facility] [id number] [address] Mar, [facility] [id number] [address] Jul, IMMUNIZATIONS No Known Immunizations SOCIAL [...] the January before. 03/2018 Hospitalization History Cellulitis-[facility] 12/20/15 Hospitalization History [facility]- Abd pain 03/07/2017 Hospitalization [facility]- Abd pain 03/14/2017 [facility]- No bowel movement, rash 04/13/2017 Hospitalization [facility]- Abd pain r/t kidney surgery on 04/17/2017 Hospitalization [facility]- Abd pain r/t kidney surgery on 04/18/2017 Hospitalization History [facility]- Lower abd pain 04/30/2017 Hospitalization History [facility]- Cannot urinate 05/30/2017 Hospitalization [facility]- Pancreatitis Sx 06/29/2017 Hospitalization [facility]- Stomach pain 07/22/2017 Hospitalization History [facility]- Left side pain 08/12/2017 Hospitalization History [facility]- Incision site infection 08/30/2017 Hospitalization History [facility]- Post Op Seroma/Hematoma Left Abdomen. Discharged 09/04/17- Dr Daniel 09/02/2017 Hospitalization [facility]- Right shoulder and back pain 2017 Hospitalization History [facility]- Shoulder/Back pain 11/11/2017 Hospitalization History [facility]- Right shoulder blade pain 12/04/2017 Hospitalization History [facility]- C-Diff 12/13/2017 Hospitalization History C diff et MRSA 12/27/2017
--- OUTSIDE RECORDS SUMMARY | 2018-10-14 14:29 | XMS REPORT ---
Author Author Migration, Doctor Organization [facility] Address Unknown Phone Unavailable Care Team Providers Care Director Of Publications Name Role Phone Migration, Doctor Unavailable Unavailable PROBLEMS Type Condition ICD9-CM Code SHP16-MN Code Onset Dates Condition Status SNOMED Code Problem Chronic tension-type headache, intractable G44.221 Active 014359927 Problem Right carpal tunnel syndrome G56.01 Active 729253614117118 Problem Hyperlipidemia, mixed E78.2 Active 842878681 Problem Morbid (severe) obesity due to excess calories E66.01 Active 546121948 Problem FH: polycystic ovary Z84.2 Active 905657002 Problem Hirsuties L68.0 Active 397812102 Problem Asthma J45.909 Active 925817008 Problem Chronic pancreatitis K86.1 Active 780000979 Problem Trichotillomania F63.3 Active 04496142 Problem Restless leg syndrome G25.81 Active 35037306 Problem Generalized social phobia F40.11 Active 66379484 Problem Primary osteoarthritis of right knee M17.11 Active 640277774417014 Problem Atelectasis J98.11 Active 60713542 Problem History of renal cell carcinoma Z85.528 Active 828146495 Problem Obesities, morbid E66.01 Active 937120299 Problem Polydipsia R63.1 Active 10455609 Problem Nodule of left lung R91.1 Active 049973746 Problem Chronic post-traumatic stress disorder (PTSD) F43.12 Active 659894776 Problem Moderate episode of recurrent major depressive disorder F33.1 Active 420387629 Problem Chronic fatigue R53.82 Active 29383561 Problem Intestinal malabsorption, unspecified K90.9 Active 94488398 ALLERGIES No Information ENCOUNTERS Encounter Location Date Diagnosis [facility] [id number] [address] Sep, [facility] [address] [facility] [id number] [address] Sep, [facility] [address], [place] [address] Aug, [facility] [address], [place] [address] Aug, Obesities, morbid E66.01 and Morbid obesity E66.01 [facility] [address], [place] [address] Aug, [address] [address] Jul, [facility] [address], [place] [address] 4765 Jul, [facility] [id number] [place] [address] 77741- 9565 Jul, [facility] [address] [place] [address] 68670- 3158 Jul, Numbness of right hand R20.0 [facility] [address], [place] [address] Jul, [facility] [address] [place] [address] 81284- 3490 Jul, Numbness of right hand R20.0 [facility] [address], [place] [address] 9[address] Jul, [facility] [address], [place] [address] Jul, [facility] [address], [place] [address] 8228 Jul, Right-sided thoracic back pain M54.6 [facility] [address], [place] [address] 3[address] Jul, [facility] [address], [place] [address] 0880 Jul, [facility] [id number] [place] [address] 68254- 4985 Jul, [facility] [id number] [place] [address] 29403- 3219 Jul, [facility] [id number] [place] [address] 11319- 9897 Jun, [facility] [id number] [place] [address] 71141- 1756 Jun, Acute pain of right shoulder M25.511 ; Numbness of right hand R20.0 and Trapezius muscle spasm M62.838 [place] [id number] [place] [address] 36244- 8880 Jun, [facility] [id number] [place] [address] 72373- 3530 Jun, [facility] [id number] [place] [address] 76108- 1228 Jun, Cough R05 ; BMI 50.0-59.9, adult Z68.43 and Morbid obesity E66.01 [facility] [id number] [place] [address] 14178- 1455 Jun, [facility] [id number] [place] [address] 10130- 4186 Jun, [facility] [address] [place] [address] 97077 -5310 Jun, BMI 45.0-49.9, adult Z68.42 and Acute non-recurrent maxillary sinusitis J01.00 [facility] [id number] [place] [address] 46836 -9986 09 Jun, 2018 Acute sinusitis J01.90 ; Dysuria R30.0 and BMI 45.0-49.9, adult Z68.42 [facility] [id number] [place] [address] 16344- 4861 Jun, [facility] [id number] [place] [address] 16128- 1862 Jun, [facility] [id number] [place] [address] 33960- 0409 May, [facility] [id number] [place] [address] 30616- 3094 May, [facility] [id number] [place] [address] 90413- 4822 May, [facility] [address] [address]25- 0309 May, [facility] [id number] [place] [address] 73209- 5227 May, [facility] [id number] [place] [address] 84625- 8984 Apr, Generalized social phobia F40.11 ; Trichotillomania F63.3 ; Chronic post-traumatic stress disorder (PTSD) F43.12 and BMI 45.0-49.9, adult Z68.42 [facility] [id number] [place] [address] 51395- 0531 Apr, [facility] [id number] [place] [address] 34643- 6930 Apr, Chronic tension-type headache, intractable G44.221 [facility] [id number] [place] [address] 63854- 8109 Apr, [facility] [id number] [place] [address] 95811 -8403 Mar, [facility] [id number] [place] [address] 98366 -9328 Mar, BMI 45.0-49.9, adult Z68.42 and Pimples R23.8 [facility] [id number] [place] [address] 58961- 6922 Mar, [facility] [address] 69830- 6163 Mar, [facility] [id number] [place] [address] 44913- 6833 Mar, Decreased urination R34 ; Chronic fatigue R53.82 ; Peripheral edema R60.9 ; Diarrhea, unspecified type R19.7 ; Non-intractable vomiting with nausea, unspecified vomiting type R11.2 ; BMI 45.0-49.9, adult Z68.42 and Chronic post-traumatic stress disorder (PTSD) F43.12 [facility] [id number] [place] [address] 13175- 4053 Mar, Intestinal malabsorption, unspecified K90.9 ; Diarrhea, unspecified R19.7 ; Urinary urgency R39.15 ; Rectal bleeding K62.5 and Decreased urine output R34 [facility] [id number] [place] [address] 22032- 6021 Mar, Decreased urine output R34 [facility] [id number] [place] [address] 80304- 2275 Mar, Rectal bleeding K62.5 [facility] [id number] [place] [address] 30322- 2098 Mar, Rectal bleeding K62.5 [facility] [id number] [place] [address] 63825- 1661 Mar, Urinary urgency R39.15 [facility] [id number] [place] [address] 79875- 0105 Mar, Urinary urgency R39.15 [facility] [id number] [place] [address] 09027- 9519 Mar, Primary osteoarthritis of right knee M17.11 and BMI 45.0- 49.9, adult Z68.42 [facility] [id number] [place] [address] 64508- 3417 Mar, [facility] [id number] [place] [address] 90292- 9054 Feb, Left upper arm pain M79.622 [facility] [address], [place] [address] 3359 Feb, [facility] [id number] [place] [address] 72327- 1592 Jan, Acute pain of right knee M25.561 ; Right upper quadrant abdominal pain R10.11 and BMI 45.0-49.9, adult Z68.42 [facility] [id number] [place] [address] 01721- 1296 Jan, [facility] [id number] [place] [address] 82055- 4222 Jan, [facility] [id number] [place] [address] 30357- 9762 Dec, [facility] [id number] [place] [address] 60573- 3445 Dec, Intestinal malabsorption, unspecified K90.9 and Diarrhea, unspecified R19.7 [facility] [address], [place] [address]- 2747 Dec, [facility] [address] [place] [address] 47422- 3970 Dec, Strep throat J02.0 ; Intestinal malabsorption, unspecified K90.9 ; Diarrhea, unspecified R19.7 ; Postoperative seroma involving digestive system after non-digestive system procedure K91.873 ; Hyperlipidemia, mixed E78.2 and BMI 45.0-49.9, adult Z68.42 [facility] [address], [place] [address]- 5349 Dec, [facility] [id number] [place] [address] 30232- 1393 Dec, Nausea R11.0 [facility] [address], [place] [address]- 4187 Dec, [facility] [address], [place] [address]5812 Dec, Sore throat J02.9 ; Strep throat J02.0 and BMI 45.0-49.9, adult Z68.42 [facility] [address], [place] [address]- 4653 Dec, [facility] [address], [place] [address]- 8334 Dec, [facility] [address], [place] [address]- 4312 Dec, [facility] [address], [place] [address]- 2554 Dec, [facility] [address], [place] [address]- 7497 Dec, [facility] [address], [place] [address]- 6541 Dec, [facility] [address], [place] [address]- 7937 Dec, [facility] [address], [place] [address]- 7977 Dec, [facility] [address], [place] [address]- 7236 Dec, Clostridium difficile colitis A04.72 ; Intractable vomiting with nausea, unspecified vomiting type R11.2 and BMI 45.0-49.9, adult Z68.42 [facility] [address], [place] [address]- 5273 Dec, [facility] [address], [place] [address]- 9739 Nov, [facility] [address], [place] [address]- 6641 Nov, [facility] [address], [place] [address]- 1147 Nov, [address] [place] [address] 91628- 7202 Nov, [facility] [id number] [place] [address] 87900 -2718 Nov, [place] [id number] [place] [address] 11869- 7287 Nov, Hyperlipidemia, mixed E78.2 [facility] [address] 35780 -1305 Nov, Acute suppurative otitis media of right ear without spontaneous rupture of tympanic membrane, recurrence not specified H66.001 and BMI 45.0-49.9, adult Z68.42 [address] 55149- 1637 Nov, Hyperlipidemia, mixed E78.[address] 03119- 4298 Nov, [place] [id number] [place] [address] 74257- 7931 Nov, [address] 27910- 2669 Nov, Nodule of left lung R91.1 [id number] [place] [address] 45589- 3063 Nov, Medicare annual wellness visit, initial Z00.00 [...] adult Z68.42 and Encounter for immunization Z23 [address] 83811- 7481 October, [address] [place] [address] [place] [address] 97110- 1670 October, Nodule of left lung R91.1 [place] [id number] [place] [address] 97801- 0890 October, Nodule of left lung R91.1 [place] [id number] [place] [address] 05286- 2020 October, Recurrent major depressive disorder, in partial remission F33.41 ; Restless leg syndrome G25.81 ; Generalized social phobia F40.11 ; Chronic post-traumatic stress disorder (PTSD) F43.12 ; BMI 45.0-49.9, adult Z68.42 and Trichotillomania F63.3 [place] [id number] [place] [address] 88137- 1550 October, [place] [id number] [place] [address] 28884- 1902 Sep, Chronic fatigue R53.82 and BMI 45.0-49.9, adult Z68.42 [place] [id number] [place] [address] 14661- 3696 Aug, [place] [id number] [place] [address] 10497- 8035 Jul, Restless leg syndrome G25.81 and B12 deficiency E53.8 [place] [id number] [place] [address] 00414- 6910 Jul, [place] [id number] [place] [address] 28879- 2110 Jul, [place] [id number] [place] [address] 38766- 7646 Jun, [place] [address] [place] [address] 08679- 2019 Jun, Fatigue, unspecified type R53.83 ; History of renal cell carcinoma Z85.528 ; Chronic pancreatitis K86.1 ; Restless leg syndrome G25.81 ; Dark urine R82.99 and BMI 45.0-49.9, adult Z68.42 [address] [place] [address] [place] [address] 09894- 5480 Jun, [place] [id number] [place] [address] 08902- 4200 Jun, [place] [id number] [place] [address] 15382- 9857 Jun, [place] [id number] [place] [address] 95037- 5454 Jun, [place] [id number] [place] [address] 96592- 0277 May, Chronic post-traumatic stress disorder (PTSD) F43.12 ; Moderate episode of recurrent major depressive disorder F33.1 ; Trichotillomania F63.3 and Generalized social phobia F40.11 [place] [id number] [place] [address] 08013- 2890 May, [place] [id number] [place] [address] 74007- 1269 May, Chronic post-traumatic stress disorder (PTSD) F43.12 ; Moderate episode of recurrent major depressive disorder F33.1 ; Trichotillomania F63.3 and Generalized social phobia F40.11 [address] [place] [place] [address] 47714- 0899 May, Hyperlipidemia, mixed E78.2 ; Morbid (severe) obesity due to excess calories E66.01 ; Chronic post-traumatic stress disorder (PTSD) F43.12 ; Moderate episode of recurrent major depressive disorder F33.1 ; Trichotillomania F63.3 and Generalized social phobia F40.11 [address] [place] [place] [address] 40284- 7141 Apr, [place] [id number] [place] [address] 96961- 6648 Apr, Hyperlipidemia, mixed E78.2 ; Morbid (severe) obesity due to excess calories E66.01 ; Chronic post-traumatic stress disorder (PTSD) F43.12 ; Moderate episode of recurrent major depressive disorder F33.1 ; Trichotillomania F63.3 and Generalized social phobia F40.11 [place] [id number] [place] [address] 91937- 2650 Apr, Trichotillomania F63.3 ; Generalized social phobia F40.11 ; Chronic post-traumatic stress disorder (PTSD) F43.12 and Moderate episode of recurrent major depressive disorder F33.1 [place] [id number] [place] [address] 04063- 4088 Apr, [place] [id number] [place] [address] 07829- 5781 Apr, [place] [id number] [place] [address] 30374- 6988 Mar, Moderate episode of recurrent major depressive disorder F33.1 ; Trichotillomania F63.3 ; Chronic post-traumatic stress disorder (PTSD) F43.12 ; Generalized social phobia F40.11 and Restless leg syndrome G25.81 [place] [id number] [place] [address] 82909- 1118 Mar, [place] [id number] [place] [address] 81863- 3551 Mar, [place] [id number] [place] [address] 91849- 4293 Feb, Left kidney mass N28.89 [place] [id number] [place] [address] 82483- 4898 Jan, [place] [id number] [place] [address] 07963- 2474 Dec, Polydipsia R63.1 ; Chronic pancreatitis K86.1 and Fatigue, unspecified type R53.83 [place] [address], [place] [address]- 1038 Nov, [facility] [id number] [place] [address] 10557- 3913 Nov, [facility] [id number] [place] [address] 03518- 6942 Nov, Headache around the eyes R51 [facility] [id number] [place] [address] 48983- 0361 Nov, [facility] [id number] [place] [address] 77254- 9463 October, STD exposure Z20.2 [facility] [id number] [place] [address] 41621- 6207 October, STD exposure Z20.2 [facility] [id number] [place] [address] 33786- 0669 October, Chronic post-traumatic stress disorder (PTSD) F43.12 ; Generalized social phobia F40.11 ; Trichotillomania F63.3 and Restless leg syndrome G25.81 [facility] [id number] [place] [address] 94064- 3757 October, [facility] [id number] [place] [address] 15389- 5575 Sep, [facility] [id number] [place] [address] 58181- 2269 Aug, [facility] [address] [place] [address] 75765- 9978 Aug, [facility] [id number] [place] [address] 72655- 1316 08 Aug, 2016 Neck mass R22.1 [facility] [address] [place] [address] 92563- 6421 Aug, Atelectasis J98.11 [facility] [address] 15420- 8918 28 Jul, 2016 Hyperlipidemia, mixed E78.2 ; Atypical pneumonia J18.9 and Neck mass R22.[address] 74548- 7009 15 Jul, 2016 [address]optysis R04.[address] 70489- 9227 08 Jul, 2016 Acute non-recurrent pansinusitis J01.40 ; Hemoptysis R04.2 ; Polydipsia R63.1 and Malaise R53.81 [facility] [address] 01366 -9581 May, Other viral agents as the cause of diseases classified elsewhere B97.89 and Acute upper respiratory infection, unspecified J06.9 [facility] [address] 29871 -4522 Mar, Nausea R11.0 [facility] [address] 82720 -9794 Dec, Hives L50.[address] 93440- 8481 Dec, [facility] [address] 62595 -1173 Dec, Cutaneous abscess of limb, unspecified L02.419 ; Cellulitis of unspecified part of limb L03.119 ; Encounter for incision and drainage procedure Z01.89 and Encounter for recheck of abscess following incision and drainage Z09 [facility] [address] 01693 -8842 09 Dec, 2015 Abscess of leg, right L02.[address] 15247- 5727 08 Dec, 2015 Cellulitis of unspecified part of limb L03.119 and Cutaneous abscess of limb, unspecified L02.419 [place] [address] [place] [address]- 3183 Dec, [facility] [id number] [place] [address] 47474- 0367 Dec, [facility] [address], [place] [address] -5610 Aug, [place] [id number] [place] [address] 05927- 2125 Aug, [facility] [place] [id number] [place] [address] 13905 -2983 Jul, Pain in unspecified wrist M25.539 and Back pain, thoracic M54.6 [facility] [place] [id number] [place] [address] 26184 -4475 Jun, Strain of right wrist, initial encounter S66.911A [place] [id number] [place] [address] 30189- 9824 Jun, Chronic pancreatitis, unspecified pancreatitis type K86.1 ; Hirsuties L68.0 ; Morbid (severe) obesity due to excess calories E66.01 ; Chronic pancreatitis K86.1 and Asthma J45.909 [place] [address] [place] [address] 33909- 8480 May, [place] [id number] [place] [address] 84777- 5459 May, Hyperlipidemia, mixed E78.2 and Muscle spasm of back M62.830 [place] [id number] [place] [address] 19764- 4564 Apr, [place] [id number] [place] [address] 01464- 4540 16 Apr, 2015 Torticollis M43.6 [place] [address] [place] [address] 44489- 7351 09 Apr, 2015 Right-sided thoracic back pain M54.6 [place] [address] [place] [address]- 1276 Mar, Rash R21 [facility] [id number] [place] [address] 99885- 2729 Mar, [facility] [id number] [place] [address] 74681- 6555 Jan, [facility] [id number] [place] [address] 71367- 3928 Dec, [facility] [id number] [place] [address] 64040- 8126 Dec, Urinary frequency 788.41 and Nocturia more than twice per night 788.43 [facility] [id number] [place] [address] 46958- 0272 Nov, [facility] [id number] [place] [address] 42716- 5081 Nov, [facility] [id number] [place] [address] 28615- 5876 Nov, Abdominal pain 789.00 [facility] [id number] [place] [address] 01221- 5438 October, TDAP DX V06.1 [facility] [id number] [place] [address] [id number]- 4518 October, [facility] [id number] [place] [address] [id number]- 8241 October, Disturbance of skin sensation 782.0 ; Wrist pain, right 719.43 ; Hyperlipidemia 272.4 and Skin lesion of face 709.9 [facility] [id number] [place] [address] 74824- 6610 Sep, [facility] [id number] [place] [address] 69904- 7569 Sep, [facility] [id number] [place] [address] 51340- 7158 Aug, [facility] [place] [facility] [address] [id number] [place] [address] Aug, [facility] [place] [facility] [address] [id number] [place] [address]- 6774 Aug, [facility] [place] [facility] [address] [id number] [place] [address]- 0235 Aug, [facility] [place] [facility] [address] [id number] [place] [address]- [address]15 Aug, [facility] [place] [facility] [address] [id number] [place] [address]- [address]20 16 Aug, 2014 [facility] [place] [facility] [address] [id number] [place] [address]- 1203 Aug, [facility] [place] [facility] [address] [id number] [place] [address]- 5067 Aug, [facility] [place] [facility] [address] [id number] [place] [address]- 0893 Aug, [facility] [place] [facility] [address] [id number] [place] [address]- 0070 Aug, [facility] [place] [facility] [address] [id number] [place] [address]- 4717 Aug, [facility] [place] [facility] [address] [id number] [place] [address]- 9581 Aug, [facility] [place] [facility] [address] [id number], [place] [address] Aug, [facility] [place] [facility] [address] [id number] [place] [address]- 1222 Aug, [facility] [place] [facility] [address] [id number] [place] [address]- 8767 Jul, [facility] [place] [facility] [address] [id number] [place] [address]- 2309 Jul, [facility] [place] [facility] [address] [id number] [place] [address]- 2010 Jul, 2014 [facility] [place] [facility] [address] [id number] [place] [place] [address] Jul, 2014 [facility] [place] [facility] [address] [id number] [place] [address] Jul, [facility] [place] [facility] [address] [id number] [place] [address]26 Jul, [facility] [place] [facility] [address] [id number] [place] [address] 9[address] Jun, [facility] [place] [facility] [address] [id number] [place] [address] 70[address] Jun, [facility] [place] [facility] [address] [id number] [place] [address] 7675 Jun, [facility] [place] [facility] [address] [id number] [place] [address]- 0[address] Jun, [facility] [place] [facility] [address] [id number] [place] [address]- 0970 Jun, [facility] [place] [facility] [address] [id number] [place] [address]- 0[address] Jun, [facility] [place] [facility] [address] [facility] [id number] [place] [address] 3922 Jun, [facility] [place] [facility] [address] [id number] [place] [address]- 5870 Jun, [facility] [place] [facility] [address] [id number] [place] [address]- 2260 May, [facility] [place] [facility] [address] [id number] [place] [address]- 9145 May, [facility] [place] [facility] [address] [id number] [place] [address]- 8146 May, [facility] [place] [facility] [address] [id number] [place] [address]- 7037 May, [facility] [place] [facility] [address] [id number] [place] [address]- 5904 May, [facility] [place] [facility] [address] [id number] [place] [address]- 8813 May, [facility] [place] [facility] [address] [id number] [place] [address]- 5956 May, [facility] [place] [facility] [address] [id number] [place] [address]- 9784 May, [facility] [place] [facility] [address] [id number] [place] [address]- 9557 May, [facility] [place] [facility] [address] [id number] [place] [address]- 3801 May, [facility] [place] [facility] [address] [id number] [place] [address]- 7649 May, [facility] [place] [facility] [address] [id number] [place] [address]- 1693 May, [facility] [place] [facility] [address] [id number] [place] [address]- 3706 Apr, [facility] [place] [facility] [address] [id number] [place] [address]- 8720 Apr, [facility] [place] [facility] [address] [id number] [place] [address]- 3799 Apr, [facility] [place] [facility] [address] [id number], [place] [address]- [address] Apr, [facility] [place] [facility] [address] [id number] [place] [address]- 2650 Apr, [facility] [place] [facility] [address] [id number] [place] [address]- 7180 Apr, [facility] [place] [facility] [address] [id number] [place] [address]- 0391 Apr, [facility] [place] [facility] [address] [id number] [place] [address]- 3710 14 Apr, 2014 [facility] [place] [facility] [address] [id number] [place] [address]- 0721 13 Apr, 2014 [facility] [place] [facility] [address] [id number] [place] [address]- 8643 13 Apr, 2014 [facility] [place] [facility] [address] [id number] [place] [address]- 3029 Apr, [facility] [place] [facility] [address] [id number] [place] [address]- 8210 Apr, [facility] [place] [facility] [address] [id number] [place] [address]- 7107 14 Mar, 2014 [facility] [place] [facility] [address] [id number] [place] [address]- 3322 Mar, [facility] [place] [facility] [address] [id number] [place] [address]- 2770 Mar, [facility] [place] [facility] [address] [id number] [place] [address]- 2451 Mar, [facility] [place] [facility] [address] [id number] [place] [address]- 0594 10 Feb, 2014 [facility] [place] [facility] [address] [id number] [place] [address]- 2138 10 Feb, 2014 [facility] [place] [facility] [address] [id number] [place] [address]- 9598 05 Feb, 2013 [facility] [place] [facility] [address] [id number] [place] [address]- 7348 05 Feb, 2013 [facility] [place] [facility] [address] [id number] [place] [address]- 5232 05 Feb, 2014 [facility] [place] [facility] [address] [id number] [place] [address]- 2159 05 Feb, 2013 [facility] [place] [facility] [address] [id number] [place] [address]- 1554 Jan, [facility] [place] [facility] [address] [id number] [place] [address]- 2693 Jan, [facility] [place] [facility] [address] [id number] [place] [address]- 1374 Jan, [facility] [place] [facility] [address] [id number] [facility] [place] [address]- 5[address] Jan, [facility] [place] [facility] [address] [id number] [place] [address]- 2613 Jan, [facility] [place] [facility] [address] [id number] [place] [address]- 2634 Jan, [facility] [place] [facility] [address] [id number] [place] [address]- 9001 Jan, [facility] [place] [facility] [address] [id number] [place] [address]- 5089 Jan, [facility] [place] [facility] [address] [id number] [place] [address]- 5151 Jan, [facility] [place] [facility] [address] [id number] [place] [address]- 0856 Jan, [facility] [place] [facility] [address] [id number] [place] [address]- 1875 Jan, [facility] [place] [facility] [address] [id number] [place] [address]- 3973 Jan, [facility] [place] [facility] [address] [id number] [place] [address]- 0682 Jan, [facility] [place] [facility] [address] [id number] [place] [address]- 1801 Jan, [facility] [place] [facility] [address] [id number] [place] [address]- 6386 Dec, [facility] [place] [facility] [address] [id number] [place] [address]- 8018 Dec, [facility] [place] [facility] [address] [id number] [place] [address]- 6076 Dec, [facility] [place] [facility] [address] [id number] [place] [address] Dec, [facility] [place] [facility] [address] [id number] [place] [address]- 5082 Nov, [facility] [place] [facility] [address] [id number] [place] [address]- 9410 Nov, [facility] [place] [facility] [address] [id number] [place] [address]- 6941 Nov, [facility] [place] [facility] [address] [id number] [place] [address]- 9144 Nov, [facility] [place] [facility] [address] [id number] [place] [address]- 0153 Nov, [facility] [place] [facility] [address] [id number] [place] [address]- 5776 October, [facility] [place] [facility] [address] [id number] [place] [address]- 1105 October, [facility] [place] [facility] [address] [id number] [place] [address]- 0372 October, [facility] [place] [facility] [address] [id number] [place] [address]- 6355 October, [facility] [place] [facility] [address] [id number] [place] [address]- 9908 October, [facility] [place] [facility] [address] [id number] [place] [address]- 5314 October, [facility] [place] [facility] [address] [id number] [place] [address]- 7748 October, [facility] [place] [facility] [address] [id number] [place] [address]- 9004 October, [facility] [place] [facility] [address] [id number] [place] [address]- 1369 October, [facility] [place] [facility] [address] [id number] [place] [address]- 8880 14 Oct, 2013 [facility] [address] [id number] [place] [address]- 0540 October, [facility] [address] [id number] [place] [address]- 7902 October, [facility] [address] [id number] [place] [address]- 8899 October, [facility] [address] [id number] [place] [address]- 0709 October, [facility] [address] [id number] [place] [address]- 9317 Sep, [facility] [address] [id number] [place] [address]- 6553 Sep, [facility] [address] [id number] [place] [address]- 0452 Sep, [facility] [address] [id number] [place] [address]- 4383 Sep, [facility] [address] [id number] [place] [address]- 7908 Sep, [facility] [address] [id number] [place] [address]- 9431 Sep, [facility] [place] [facility] [address] [id number] [place] [address]- 5481 Sep, [facility] [address] [id number] [place] [address]- 6539 Sep, [facility] [place] [facility] [address] [id number] [place] [address]- 3819 Sep, [facility] [place] [facility] [address] [id number] [place] [address]- 6081 Sep, [facility] [place] [facility] [address] [id number] [place] [address]- 2072 Sep, [facility] [place] [facility] [address] [id number] [place] [address]- 5787 Sep, [facility] [place] [facility] [address] [id number] [place] [address]- 7647 Sep, [facility] [place] [facility] [address] [id number] [place] [address]- 1644 Sep, [facility] [place] [facility] [address] [id number] [place] [address]- 2716 Sep, [facility] [place] [facility] [address] [id number] [place] [address]- 3036 Aug, [facility] [place] [facility] [address] [id number] [place] [address]- 3426 Aug, [facility] [place] [facility] [address] [id number] [place] [address]- 1948 Aug, [facility] [place] [facility] [address] [id number] [place] [address]- 2360 Aug, [facility] [place] [facility] [address] [id number] [place] [address]- 9005 Jul, [facility] [place] [facility] [address] [id number] [place] [address]- 9753 Jul, [facility] [place] [facility] [address] [id number] [place] [address]- 0239 Jul, [facility] [place] [facility] [address] [id number] [place] [address]- 3038 Jul, [facility] [place] [facility] [address] [id number] [place] [address]- 1392 Jun, [facility] [place] [facility] [address] [id number] [place] [address]- 1736 Jun, [facility] [place] [facility] [address] [id number] [place] [address]- 2998 Jun, [facility] [place] [facility] [address] [id number] [place] [address]- 0460 15 Jun, 2013 [facility] [address] [id number] [place] [address]- 2754 10 Jun, 2013 [facility] [address] [id number] [place] [address]26 10 Jun, 2013 [facility] [address] [id number] [place] [address]- 5594 08 Jun, 2013 [facility] [address] [id number] [place] [address]- 9538 08 Jun, 2013 [facility] [address] [id number] [place] [address]- 0112 20 May, 2013 [facility] [address] [id number] [place] [address]- 1033 20 May, 2013 [facility] [address] [id number] [place] [address]- 5903 18 May, 2013 [facility] [address] [id number] [place] [address]- 1620 18 May, 2013 [facility] [address] [id number] [place] [address]- 5484 17 May, 2013 [facility] [address] [facility] [id number] [place] [id number] 17 May, 2013 [facility] [place] [facility] [address] [id number] [place] [address]- 7315 17 May, 2013 [facility] [place] [facility] [address] [id number] [place] [address]- 0025 17 May, 2013 [facility] [place] [facility] [address] [id number] [place] [address]- 4303 16 May, 2013 [facility] [place] [facility] [address] [id number] [place] [address]64 16 May, 2013 [facility] [place] [facility] [address] [id number] [place] [address]444 14 May, 2013 [facility] [place] [facility] [address] [id number] [place] [address]- 0900 14 May, 2013 [facility] [place] [facility] [address] [id number] [place] [address]- 2996 13 May, 2013 [facility] [place] [facility] [address] [id number] [place] [address] 2546 13 May, 2013 [facility] [place] [facility] [address] [id number] [place] [address]- 0756 12 May, 2013 [facility] [place] [facility] [address] [id number] [place] [address]- 8956 12 May, 2013 [facility] [place] [facility] [address] [id number] [place] [address]- 2321 May, [facility] [place] [facility] [address] [id number] [place] [address]- 0084 May, [facility] [place] [facility] [address] [id number] [place] [address]- 6311 Apr, [facility] [place] [facility] [address] [id number] [place] [address]- 7202 Apr, [facility] [place] [facility] [address] [id number] [place] [address]- 2880 Apr, [facility] [place] [facility] [address] [id number] [place] [address]- 4996 Apr, [facility] [place] [facility] [address] [id number] [place] [address]- 3499 27 Aug, 2012 [facility] [place] [facility] [address] [id number] [place] [address]- 6648 18 Aug, 2012 [facility] [place] [facility] [address] [id number] [place] [address] 2547 06 Aug, 2012 [facility] [place] [facility] [address] [id number] [place] [address] 2547 05 Aug, 2012 [facility] [place] [facility] [address] [id number] [place] [address]- 6734 Jul, [facility] [address] [id number] [place] [address]- 8218 Jun, [facility] [place] [facility] [address] [id number] [place] [address]- 7386 Jun, [facility] [place] [facility] [address] [facility] [id number] [place] [address]- 1135 Jun, [facility] [place] [facility] [address] [id number] [place] [address]- 2455 Jun, [facility] [place] [facility] [address] [id number] [place] [address]- 3290 May, [facility] [place] [facility] [address] [id number] [place] [address]- 3494 May, [facility] [place] [facility] [address] [facility] [id number] [place] [address]- 1944 May, [facility] [place] [facility] [address] [id number] [place] [address]- 3656 May, [facility] [place] [facility] [address] [id number] [place] [address]- 8912 May, [facility] [place] [facility] [address] [facility] [id number] [place] [address]- 2701 May, [facility] [place] [facility] [address] [id number], [place] [address]- 7002 May, [facility] [place] [facility] [address] [id number], [place] [address]- 0805 Apr, [facility] [place] [facility] [address] [id number] [place] [address]- 4497 Apr, [facility] [place] [facility] [address] [facility] [id number] [place] [address]- 8368 Apr, [facility] [place] [facility] [address] [facility] [id number] [place] [address]- 3363 Apr, [facility] [place] [facility] [address] [id number] [place] [address]- 9964 Apr, [facility] [place] [facility] [address] [id number] [place] [address]- 7536 Apr, [facility] [place] [facility] [address] [id number] [place] [address]- 9107 Apr, [facility] [place] [facility] [address] [id number] [place] [address]- 8534 Mar, [facility] [place] [facility] [address] [id number] [place] [address]- 7397 Mar, [facility] [place] [facility] [address] [id number] [place] [address]- 4578 Mar, [facility] [place] [facility] [address] [id number] [place] [address]- 2705 Mar, [facility] [place] [facility] [address] [id number] [place] [address]- 1361 Mar, [facility] [place] [facility] [address] [id number] [place] [address]- 2071 Mar, [facility] [place] [facility] [address] [id number] [place] [address]- 3126 Mar, [facility] [place] [facility] [address] [id number], [place] [address]- 8622 Mar, [facility] [place] [facility] [address] [id number] [place] [address]- 1383 15 Mar, 2012 [facility] [place] [facility] [address] [id number], [place] [address]- 7625 15 Mar, 2012 [facility] [place] [facility] [address] [id number] [place] [address]- 6912 Mar, [facility] [place] [facility] [address] [facility] [id number] [place] [address]- 9858 Mar, [facility] [place] [facility] [address] [id number], [place] [address]- 3033 Feb, [facility] [place] [facility] [address] [id number] [place] [address]- 0988 Jan, [facility] [place] [facility] [address] [id number] [place] [address]- 0828 Jan, [facility] [place] [facility] [address] [id number] [place] [address]- 1895 Jan, [facility] [place] [facility] [address] [id number] [place] [address] 2542 Jan, [facility] [place] [facility] [address] [id number] [place] [address]- 3009 Jan, [facility] [place] [facility] [address] [id number] [place] [address]- 0916 Dec, [facility] [place] [facility] [address] [id number] [place] [address]- 2987 Dec, [facility] [place] [facility] [address] [id number] [place] [address]- 1610 Nov, [facility] [place] [facility] [address] [id number] [place] [address]- 8992 Nov, [facility] [place] [facility] [address] [id number] [place] [address]- 8707 Nov, [facility] [place] [facility] [address] [id number] [place] [address]- 6045 October, [facility] [place] [facility] [address] [id number] [place] [address]- 7683 October, [facility] [place] [facility] [address] [id number] [place] [address]- 6974 October, [facility] [place] [facility] [address] [id number] [place] [address]- 1600 October, [facility] [place] [facility] [address] [id number] [place] [address]- 9956 October, [facility] [place] [facility] [address] [id number] [place] [address]- 5235 15 Oct, 2011 [facility] [address] [id number] [place] [address]- 2018 October, [facility] [place] [facility] [address] [id number] [place] [address]- 2505 26 Sep, 2011 [facility] [address] [id number] [place] [address]- 4399 Sep, [facility] [place] [facility] [address] [id number] [place] [address] 26 Sep, 2011 [facility] [address] [id number] [place] [address] 85[address] 25 Sep, 2011 [facility] [address] [id number] [place] [address] 24 Sep, 2011 [facility] [address] [id number] [place] [address] 1195 19 Sep, 2011 [facility] [address] [id number] [place] [address] 0255 17 Sep, 2011 [facility] [address] [id number] [place] [address] 5286 16 Sep, 2011 [facility] [place] [facility] [address] [id number] [place] [address] 1174 16 Sep, 2011 [facility] [address] [id number] [place] [address] 14 Sep, 2011 [facility] [place] [facility] [address] [id number] [place] [address] 6[address] 13 Sep, 2011 [facility] [place] [facility] [address] [id number] [place] [address]- 0247 10 Sep, 2011 [facility] [place] [facility] [address] [id number] [place] [address] 09 Sep, 2011 [facility] [place] [facility] [address] [id number] [place] [address]- 45[address] 27 Aug, 2011 [facility] [place] [facility] [address] [id number] [place] [address] 0047 12 Aug, 2011 [facility] [address] [id number] [place] [address]- 5712 08 Aug, 2011 [facility] [place] [facility] [address] [id number] [place] [address]- 4692 06 Aug, 2011 [facility] [place] [facility] [address] [id number] [place] [address] 9119 28 Jul, 2011 [facility] [place] [facility] [address] [id number] [place] [address]- 3573 22 Jul, 2011 [facility] [place] [facility] [address] [id number] [place] [address] 3189 16 Jul, 2011 [facility] [place] [facility] [address] [id number] [place] [address]- 1473 15 Jul, 2011 [facility] [place] [facility] [address] [id number] [place] [address]- 0447 14 Jul, 2011 [facility] [place] [facility] [address] [id number] [place] [address] 4827 10 Jul, 2011 [facility] [place] [facility] [address] [id number] [place] [address] 38[address] Jun, [facility] [place] [facility] [address] [id number] [place] [address] Jun, [facility] [place] [facility] [address] [id number] [place] [address] Jun, [facility] [place] [facility] [address] [id number] [place] [address] Jun, [facility] [place] [facility] [address] [id number] [place] [address] 6[address] Jun, [facility] [place] [facility] [address] [id number] [place] [address] 67[address] May, [facility] [place] [facility] [address] [id number] [place] [address]180 May, [facility] [place] [facility] [address] [id number] [place] [address]- 7527 14 May, 2011 [facility] [place] [facility] [address] [id number] [place] [address]115 14 May, 2011 [facility] [place] [facility] [address] [id number] [place] [address]- 9276 May, [facility] [place] [facility] [address] [id number] [place] [address] 4391 May, [facility] [place] [facility] [address] [id number] [place] [address] 7352 May, [facility] [place] [facility] [address] [id number] [place] [address]- 3700 15 Apr, 2011 [facility] [place] [facility] [address] [id number] [place] [address]- 9735 15 Apr, 2011 [facility] [place] [facility] [address] [id number] [place] [address] 2381 Apr, [facility] [place] [facility] [address] [id number] [place] [address]- 4220 Apr, [facility] [place] [facility] [address] [id number] [place] [address]- 1104 Apr, [facility] [place] [facility] [address] [id number], [place] [address] Apr, [facility] [place] [facility] [address] [id number] [place] [address]- [address] Mar, [facility] [place] [facility] [address] [id number] [place] [address]- 0869 Mar, [facility] [place] [facility] [address] [id number] [place] [address] Mar, [facility] [place] [facility] [address] [id number] [place] [address] 4167 Mar, [facility] [place] [facility] [address] [id number] [place] [address]- 4088 Jan, [facility] [address] [id number] [place] [address]- 7481 19 Dec, 2010 [facility] [place] [facility] [address] [id number] [place] [address]- 6276 13 Dec, 2010 [facility] [address] [id number] [place] [address] 4970 October, [facility] [place] [facility] [address] [id number] [place] [address]- 62[address] Sep, [facility] [address] [id number] [place] [address]- 4137 Sep, [facility] [address] [id number] [place] [address]- 6326 17 Jul, 2010 [facility] [address] [id number] [place] [address]- 8306 16 Jul, 2010 [facility] [address] [id number] [place] [address]56 May, [facility] [address] [id number] [place] [address] 3163 May, [facility] [address] [id number] [place] [address]- 8444 May, [facility] [address] [id number] [place] [address]- 9276 May, [facility] [address] [id number] [place] [address] 2541 Apr, [facility] [place] [facility] [address] [id number] [place] [address]- 7008 Apr, [facility] [place] [facility] [address] [id number] [place] [address]- 1806 Apr, [facility] [place] [facility] [address] [id number] [place] [address]- 7816 Apr, [facility] [place] [facility] [address] [id number] [place] [address]- 9977 Apr, [facility] [place] [facility] [address] [id number] [place] [address]- 3163 21 Mar, 2010 [facility] [place] [facility] [address] [id number] [place] [address]- 7370 14 Mar, 2010 [facility] [place] [facility] [address] [id number] [place] [address]- 2987 13 Mar, 2010 [facility] [place] [facility] [address] [id number] [place] [address]- 6509 12 Mar, 2010 [facility] [place] [facility] [address] [id number] [place] [address]- 5743 20 Jan, 2010 [facility] [place] [facility] [address] [id number] [place] [address]- 1681 15 Dec, 2009 [facility] [place] [facility] [address] [id number], [place] [address]- [address]755 10 Sep, 2009 [facility] [place] [facility] [address] [id number] [place] [address]- 8138 May, [facility] [place] [facility] [address] [id number], [place] [address]- 3664 May, [facility] [place] [facility] [address] [id number], [place] [address]- 7131 May, [facility] [place] [facility] [address] [id number], [place] [address]- 7174 17 Apr, 2009 [facility] [place] [facility] [address] [id number] [place] [address]- 9409 17 Apr, 2009 [facility] [place] [facility] [address] [id number], [place] [address] 10 Apr, 2009 [facility] [address] [id number], [place] [address] 10 Apr, 2009 [facility] [address] [facility] [id number] [place] [address] Apr, [facility] [address] [facility] [id number] [place] [address] Mar, [facility] [address] [facility] [id number] [place] [address] Mar, [facility] [address] [facility] [id number], [place] [address] Jul, IMMUNIZATIONS No Known Immunizations SOCIAL HISTORY Never Assessed REASON FOR VISIT [facility] PLAN OF CARE VITAL SIGNS MEDICATIONS Medication Instructions Dosage Frequency Start Date End Date Duration Status Albuterol Sulfate 90 mcg/actuation 2 puffs by Inhalation route every 4-6 hours as needed PRN cough or wheezing Aug, Active ZyrTEC 10 mg 1 tablet by Oral route 1 time per day Aug, Active Estradiol 1 mg 1 tablet by Oral route 1 time per day Apr, Active Clindamycin HCl 300 mg take 1 capsule by Oral route every 6 hours for 10 days May, Active buspirone 5 mg take 1 tablet by Oral route 2 times per day Jul, Active pravastatin 40 mg 1 tablet by Oral route 1 time per day every night. Avoid grapefruit juice and products with grapefruit. Aug, Active Imitrex 100 mg 1 tablet by Oral route 1 time per day and repeat once more after 2 hours if headache recurs PRN Jul, Active Keflex 500 mg take 1 capsule (500 mg) by oral route every 6 hours for 7 days Sep, Active Ibuprofen 800 mg take 1 tablet (800 mg) by oral route 3 times per day with food Mar, Active PredniSONE 20 mg 2 tablet by Oral route 1 time per day for 5 day(s) Aug, Active PredniSONE 10 mg 1 Tablet 2 times per day for 5 days Take at 8 am and noon. Do not take after 3 pm Sep, Active Hydrocodone-Acetaminophen by Oral route Jun, Active ropinirole 2 mg take 1 tablet (2 mg) by oral route 3 times per day May, Active Flexeril 10 mg 1 tablet by Oral route 3 times per day PRN muscle spasm Aug, Active Flonase 50 mcg/actuation 1 sprays by Nasal route 2 times per day in each nostril Jul, Active Ondansetron HCl 8 mg 1 tablet by Oral route every 8 hours PRN Jul, Active Brintellix 10 mg take 1 tablet (10 mg) by oral route once daily at the same time each day Jul, Active Bactroban 2 % 1 giovanna by Topical route 2 times per day for 14 day(s) May, Active Doxycycline Hyclate 100 mg 1 tablet by Oral route 2 times per day for 14 days Apr, Active Terazol 7 0.4 % insert 1 applicatorful by vaginal route once daily at bedtime for 7 days Aug, Active Cipro 500 mg 1 tablet by Oral route every 12 hours for 7 day(s) October Active Zithromax Z-[place] 250 mg 2 tablet by Oral route 1 time per day for 1 days then take 1 tab daily on days 2-5 Aug, Active RESULTS No Results PROCEDURES No Known [...] the January before. 03/2018 Hospitalization History Cellulitis-[facility] 12/20/15 Hospitalization History [facility]- Abd pain 03/07/2017 Hospitalization History [facility]- Abd pain 03/14/2017 Hospitalization History [facility]- No bowel movement, rash 04/13/2017 Hospitalization History [facility]- Abd pain r/t kidney surgery on 04/17/2017 Hospitalization History [facility]- Abd pain r/t kidney surgery on 04/18/2017 Hospitalization History [facility]- Lower abd pain 04/30/2017 Hospitalization History [facility]- Cannot urinate 05/30/2017 Hospitalization History [facility]- Pancreatitis Sx 06/29/2017 Hospitalization History [facility]- Stomach pain 07/22/2017 Hospitalization History [facility]- Left side pain 08/12/2017 Hospitalization History [facility]- Incision site infection 08/30/2017 Hospitalization History [facility]- Post Op Seroma/Hematoma Left Abdomen. Discharged 09/04/17- Dr Daniel 09/02/2017 Hospitalization History [facility]- Right shoulder and back pain 2017 Hospitalization History [facility]- Shoulder/Back pain 11/11/2017 Hospitalization History [facility]- Right shoulder blade pain 12/04/2017 Hospitalization History [facility]- C-Diff 12/13/2017 Hospitalization History C diff et MRSA 12/27/2017
[2018-10-14] MEDS ORDERED: ANTACID SUSP 30 ML UDC (MYLANTA) PO ONE (14:30)
[2018-10-14] MEDS ORDERED: LIDOCAINE 2% VISCOUS 15 ML UDC PO ONE (14:30)
[2018-10-14] MEDS ORDERED: LORazepam INJ 2 MG/ML (ATIVAN) VIAL IVP PRN (14:30)
[2018-10-14] MEDS ORDERED: KETOROLAC 30 MG/ML VIAL IVP ONE (14:30)
--- OUTSIDE RECORDS SUMMARY | 2018-10-14 14:30 | XMS REPORT ---
Author Author Migration, Doctor Organization [facility] Address Unknown Phone Unavailable Care Team Providers Care Underwriting Account Representative Name Role Phone Migration, Doctor Unavailable Unavailable PROBLEMS Type Condition ICD9-CM Code [id number] Code Onset Dates Condition Status SNOMED Code Problem Chronic tension-type headache, intractable G44.221 Active 123601390 Problem Right carpal tunnel syndrome G56.01 Active 066077280754233 Problem Hyperlipidemia, mixed E78.2 Active 190691174 Problem Morbid (severe) obesity due to excess calories E66.01 Active 403249027 Problem FH: polycystic ovary Z84.2 Active 637724571 Problem Hirsuties L68.0 Active 210810572 Problem Asthma J45.909 Active 192247089 Problem Chronic pancreatitis K86.1 Active 007428079 Problem Trichotillomania F63.3 Active 78982128 Problem Restless leg syndrome G25.81 Active 14851511 Problem Generalized social phobia F40.11 Active 54416622 Problem Primary osteoarthritis of right knee M17.11 Active 198261710872792 Problem Atelectasis J98.11 Active 41569698 Problem History of renal cell carcinoma Z85.528 Active 990044367 Problem Obesities, morbid E66.01 Active 604768765 Problem Polydipsia R63.1 Active 51999016 Problem Nodule of left lung R91.1 Active 940580076 Problem Chronic post-traumatic stress disorder (PTSD) F43.12 Active 996689246 Problem Moderate episode of recurrent major depressive disorder F33.1 Active 802037412 Problem Chronic fatigue R53.82 Active 47190119 Problem Intestinal malabsorption, unspecified K90.9 Active 28985379 ALLERGIES No Information ENCOUNTERS Encounter Location Date Diagnosis [facility] [address] [id number], [place] [address] Sep, [facility] [address] [address] [id number], [place] [address] 2004 Aug, Obesities, morbid E66.01 and Morbid obesity E66.01 [facility] [address] [facility] [address] [id number], [place] [address] Aug, [facility] [address] [address] Jul, [facility] [address] [facility] [id number], [place] [address] Jul, [facility] [address] [place] [address]71 Jul, [facility] [address], [place] [address] Jul, Numbness of right hand R20.0 [facility] [address], [place] [address] Jul, [facility] [address] [place] [address] 39173- 9221 Jul, Numbness of right hand R20.0 [facility] [address], [place] [address] Jul, [facility] [address], [place] [address] Jul, [facility] [address], [place] [address] Jul, Right-sided thoracic back pain M54.6 [facility] [address], [place] [address] Jul, [facility] [address], [place] [address] Jul, [facility] [address], [place] [address] 04[address] Jul, [facility] [address], [place] [address] 95[address] Jul, [facility] [address] [place] [address]11- 1446 Jun, [facility] [address] [place] [address] 03631- 8004 Jun, Acute pain of right shoulder M25.511 ; Numbness of right hand R20.0 and Trapezius muscle spasm M62.838 [facility] [address] [place] [address] 9[address]61- 0391 Jun, [facility] [address] [address]- 7875 Jun, [place] [address] 36775- 9865 Jun, Cough R05 ; BMI 50.0-59.9, adult Z68.43 and Morbid obesity E66.01 [place] [address] [place] [address] [place] [address] 31395- 6390 Jun, [facility] [address] [place] [address] 61003- 8389 Jun, [facility] [address] [place] [address] 45761 -6101 Jun, BMI 45.0-49.9, adult Z68.42 and Acute non-recurrent maxillary sinusitis J01.00 [facility] [address] [place] [address] 11402 -2389 Jun, Acute sinusitis J01.90 ; Dysuria R30.0 and BMI 45.0-49.9, adult Z68.42 [facility] [address] [place] [address] 53523- 5080 Jun, [place] [address] 6[address]69- 9786 Jun, [facility] [address] [place] [address] 10575- 1174 May, [facility] [address] 10914- 7863 May, [place] [address] [place] [address] 49485- 8910 May, [place] [address] 43540- 4544 May, [place] [address] 44628- 2157 May, [place] [address] 30639- 3226 Apr, Generalized social phobia F40.11 ; Trichotillomania F63.3 ; Chronic post-traumatic stress disorder (PTSD) F43.12 and BMI 45.0-49.9, adult Z68.42 [place] [address] 19326- 4609 Apr, [place] [address] 47921- 2774 Apr, Chronic tension-type headache, intractable G44.221 [place] [address] 52669- 7836 Apr, [facility] [address] [place] [address] 79881 -2891 Mar, [facility] [address] [place] [address] 70314 -7895 Mar, BMI 45.0-49.9, adult Z68.42 and Pimples R23.8 [place] [address] [place] [address] 87063- 8685 Mar, [place] [address] 83524- 9480 Mar, [place] [address] [place] [address] 97085- 3473 Mar, Decreased urination R34 ; Chronic fatigue R53.82 ; Peripheral edema R60.9 ; Diarrhea, unspecified type R19.7 ; Non-intractable vomiting with nausea, unspecified vomiting type R11.2 ; BMI 45.0-49.9, adult Z68.42 and Chronic post-traumatic stress disorder (PTSD) F43.12 [facility] [address] [place] [address] 29719- 9820 Mar, Intestinal malabsorption, unspecified K90.9 ; Diarrhea, unspecified R19.7 ; Urinary urgency R39.15 ; Rectal bleeding K62.5 and Decreased urine output R34 [facility] [address] [place] [address] 62907- 4087 Mar, Decreased urine output R34 [facility] [address] [place] [address] 40746- 7115 Mar, Rectal bleeding K62.5 [facility] [address] [place] [address] 89794- 8487 Mar, Rectal bleeding K62.5 [facility] [address] [place] [address] 75840- 7513 Mar, Urinary urgency R39.15 [facility] [address] [place] [address] 41373- 4743 Mar, Urinary urgency R39.15 [facility] [address] [place] [address] 37880- 3799 Mar, Primary osteoarthritis of right knee M17.11 and BMI 45.0- 49.9, adult Z68.42 [facility] [address] [place] [address] 90038- 1953 Mar, [facility] [address] [place] [address] 54345- 5400 Feb, Left upper arm pain M79.622 [facility] [address] [place] [address] 30229- 7979 Feb, [facility] [address] [place] [address] 80838- 8574 Jan, Acute pain of right knee M25.561 ; Right upper quadrant abdominal pain R10.11 and BMI 45.0-49.9, adult Z68.42 [facility] [address] [place] [address] 87487- 9258 Jan, [facility] [address] [place] [address] 83877- 6325 Jan, [facility] [address] [place] [address] 14299- 9183 Dec, [facility] [address] [place] [address] 39895- 3161 Dec, Intestinal malabsorption, unspecified K90.9 and Diarrhea, unspecified R19.7 [place] [address] [place] [address] 77282- 6993 Dec, [facility] [address] [place] [address] 90056- 7483 Dec, Strep throat J02.0 ; Intestinal malabsorption, unspecified K90.9 ; Diarrhea, unspecified R19.7 ; Postoperative seroma involving digestive system after non-digestive system procedure K91.873 ; Hyperlipidemia, mixed E78.2 and BMI 45.0-49.9, adult Z68.42 [facility] [address] [place] [address] 95305- 6042 Dec, [facility] [address] [place] [address] 35419- 4035 Dec, Nausea R11.0 [facility] [address] [place] [address] 29545- 7911 Dec, [facility] [address] [place] [address] 94167 -0761 Dec, Sore throat J02.9 ; Strep throat J02.0 and BMI 45.0-49.9, adult Z68.42 [facility] [address] [place] [address] 02242- 3359 Dec, [facility] [address] [place] [address] 08[address] Dec, [facility] [address], [place] [address]- [address]250 Dec, [facility] [address] [place] [address]- 8759 Dec, [facility] [address], [place] [address]- 0811 Dec, [facility] [address] [place] [address]- 9429 Dec, [facility] [address], [place] [address]- 2066 Dec, [facility] [address], [place] [address]- 0288 Dec, [facility] [address], [place] [address]- 7559 Dec, Clostridium difficile colitis A04.72 ; Intractable vomiting with nausea, unspecified vomiting type R11.2 and BMI 45.0-49.9, adult Z68.42 [facility] [address], [place] [address]- 5002 Dec, [facility] [address], [place] [address]- 8233 Nov, [facility] [address], [place] [address]- 7379 Nov, [facility] [address], [place] [address]- 0341 Nov, [facility] [address], [place] [address]- 7848 Nov, [facility] [address], [place] [address] Nov, [place] [address] [place] [address] 20947- 8987 Nov, Hyperlipidemia, mixed E78.2 [facility] [address] [place] [address] 22639 -2298 Nov, Acute suppurative otitis media of right ear without spontaneous rupture of tympanic membrane, recurrence not specified H66.001 and BMI 45.0-49.9, adult Z68.42 [place] [address] 38095- 3508 Nov, Hyperlipidemia, mixed E78.2 [place] [address] 36190- 4564 Nov, [place] [address] 41631- 3950 Nov, [place] [address] 79090- 4504 Nov, Nodule of left lung R91.1 [place] [address] 10487- 7760 Nov, Medicare annual wellness visit, initial Z00.00 [...] Z68.42 and Encounter for immunization Z23 [address] [address]186- 6985 October, [place] [id number] [place] [address] 98924- 6087 October, Nodule of left lung R91.1 [place] [address] 93880- 8282 October, Nodule of left lung R91.1 [place] [address] [place] [address] [place] [address] 34423- 5509 October, Recurrent major depressive disorder, in partial remission F33.41 ; Restless leg syndrome G25.81 ; Generalized social phobia F40.11 ; Chronic post-traumatic stress disorder (PTSD) F43.12 ; BMI 45.0-49.9, adult Z68.42 and Trichotillomania F63.3 [place] [address] [place] [address] [place] [address] 10742- 8126 October, [place] [address] [place] [place] [address] 22450- 3253 Sep, Chronic fatigue R53.82 and BMI 45.0-49.9, adult Z68.42 [place] [address] [place] [place] [address] 52591- 6098 Aug, [place] [address] [place] [place] [address] 70116- 5776 Jul, Restless leg syndrome G25.81 and B12 deficiency E53.8 [place] [address] [place] [address] [place] [address] 70958- 3088 Jul, [place] [address] [place] [address] 52694- 0482 Jul, [place] [address] [place] [place] [address] 07271- 4850 Jun, [place] [address] [place] [address] 63529- 8770 Jun, Fatigue, unspecified type R53.83 ; History of renal cell carcinoma Z85.528 ; Chronic pancreatitis K86.1 ; Restless leg syndrome G25.81 ; Dark urine R82.99 and BMI 45.0-49.9, adult Z68.42 [place] [address] [place] [place] [address] 05924- 9322 Jun, [facility] [id number], [place] [address]- 6093 Jun, [facility] [address]- 9116 Jun, [facility] [id number], [place] [address]- 7668 Jun, [facility] [address] [place] [address] 734543- 6779 May, Chronic post-traumatic stress disorder (PTSD) F43.12 ; Moderate episode of recurrent major depressive disorder F33.1 ; Trichotillomania F63.3 and Generalized social phobia F40.11 [facility] [address], [place] [address]- 4094 May, [facility] [address], [place] [address]- 9944 May, Chronic post-traumatic stress disorder (PTSD) F43.12 ; Moderate episode of recurrent major depressive disorder F33.1 ; Trichotillomania F63.3 and Generalized social phobia F40.11 [facility] [address] [id number], [place] [address]- 1309 May, Hyperlipidemia, mixed E78.2 ; Morbid (severe) obesity due to excess calories E66.01 ; Chronic post-traumatic stress disorder (PTSD) F43.12 ; Moderate episode of recurrent major depressive disorder F33.1 ; Trichotillomania F63.3 and Generalized social phobia F40.11 [facility] [address], [place] [address]- 5495 Apr, [facility] [address], [place] [address]- 5123 Apr, Hyperlipidemia, mixed E78.2 ; Morbid (severe) obesity due to excess calories E66.01 ; Chronic post-traumatic stress disorder (PTSD) F43.12 ; Moderate episode of recurrent major depressive disorder F33.1 ; Trichotillomania F63.3 and Generalized social phobia F40.11 [facility] [address] [place] [address] 34742- 0162 Apr, Trichotillomania F63.3 ; Generalized social phobia F40.11 ; Chronic post-traumatic stress disorder (PTSD) F43.12 and Moderate episode of recurrent major depressive disorder F33.1 [facility] [address] [place] [address] 06983- 3364 Apr, [facility] [address] [place] [address] 88401- 6013 Apr, [facility] [address] [place] [address] 54762- 0898 Mar, Moderate episode of recurrent major depressive disorder F33.1 ; Trichotillomania F63.3 ; Chronic post-traumatic stress disorder (PTSD) F43.12 ; Generalized social phobia F40.11 and Restless leg syndrome G25.81 [place] [address] [place] [address] 98016- 7373 Mar, [place] [address] [place] [address] 63156- 6110 Mar, [facility] [address] [place] [address] 73381- 4284 Feb, Left kidney mass N28.89 [facility] [address] [place] [address] 34291- 9163 Jan, [facility] [address] [place] [address] 66093- 9165 Dec, Polydipsia R63.1 ; Chronic pancreatitis K86.1 and Fatigue, unspecified type R53.83 [facility] [address] [place] [address] 83301- 2495 Nov, [facility] [address] [place] [address] 12624- 7527 Nov, [place] [address], [place] [address]- 9355 Nov, Headache around the eyes R51 [facility] [address] [place] [address] 01647- 1978 Nov, [facility] [address] [place] [address] 57646- 5766 October, STD exposure Z20.2 [facility] [address] [place] [address] 51538- 5871 October, STD exposure Z20.2 [facility] [address] [place] [address] 17539- 3719 October, Chronic post-traumatic stress disorder (PTSD) F43.12 ; Generalized social phobia F40.11 ; Trichotillomania F63.3 and Restless leg syndrome G25.81 [place] [address] [place] [address] 61478- 1618 October, [facility] [address] [place] [address] 26963- 5646 Sep, [facility] [address] [place] [address] 97654- 5751 Aug, [facility] [address] [place] [address] 84233- 6524 Aug, [facility] [address] [place] [address] 55649- 2525 Aug, Neck mass R22.1 [place] [address] [place] [address] 71226- 0494 Aug, Atelectasis J98.11 [place] [address] [place] [address] 01286- 7478 28 Jul, 2016 Hyperlipidemia, mixed E78.2 ; Atypical pneumonia J18.9 and Neck mass R22.1 [facility] [address] [place] [address] 75953- 6546 15 Jul, 2016 Hemoptysis R04.2 [place] [address] [place] [address] 09143- 7437 08 Jul, 2016 Acute non-recurrent pansinusitis J01.40 ; Hemoptysis R04.2 ; Polydipsia R63.1 and Malaise R53.81 [facility] [place] [address] [place] [address] 89793 -4105 May, Other viral agents as the cause of diseases classified elsewhere B97.89 and Acute upper respiratory infection, unspecified J06.9 [facility] [place] [id number] [place] [address] 54006 -7148 Mar, Nausea R11.0 [facility] [place] [id number] [place] [address] 85403 -6998 Dec, Hives L50.9 [place] [id number] [place] [address] 11533- 7059 Dec, [facility] [place] [id number] [place] [address] 62894 -6968 Dec, Cutaneous abscess of limb, unspecified L02.419 ; Cellulitis of unspecified part of limb L03.119 ; Encounter for incision and drainage procedure Z01.89 and Encounter for recheck of abscess following incision and drainage Z09 [facility] [place] [id number] [place] [address] 97311 -9825 Dec, Abscess of leg, right L02.415 [place] [address] [place] [address] 39199- 1853 Dec, Cellulitis of unspecified part of limb L03.119 and Cutaneous abscess of limb, unspecified L02.419 [place] [address] [place] [address] 78807- 3970 Dec, [place] [address] [place] [address] 91687- 5295 Dec, [facility] [address] [place] [address] 45638 -2425 07 Aug, 2015 [facility] [address] [place] [address] 56994- 6124 04 Aug, 2015 [facility] [address] [place] [address] 78482 -8157 04 Jul, 2015 Pain in unspecified wrist M25.539 and Back pain, thoracic M54.6 [facility] [address] [place] [address] 52529 -4778 13 Jun, 2015 Strain of right wrist, initial encounter S66.911A [place] [address] 73033- 6124 11 Jun, 2015 Chronic pancreatitis, unspecified pancreatitis type K86.1 ; Hirsuties L68.0 ; Morbid (severe) obesity due to excess calories E66.01 ; Chronic pancreatitis K86.1 and Asthma J45.909 [place] [address] [place] [address] 38819- 5216 May, [place] [address] 59059- 2716 May, Hyperlipidemia, mixed E78.2 and Muscle spasm of back M62.830 [place] [address] [place] [address] [place] [address] 66900- 8657 Apr, [place] [address] [place] [address] 56385- 3381 Apr, Torticollis M43.6 [place] [address] [place] [address] [place] [address] 68643- 5270 Apr, Right-sided thoracic back pain M54.6 [place] [address] [place] [address] [place] [address] 46140- 8053 15 Mar, 2015 Rash R21 [place] [address] [address] [place] [address] 66691- 1381 Mar, [facility] [address] [address] Jan, [facility] [id number] [place] [address] 86458- 7353 Dec, [facility] [id number] [place] [address] 75408- 3385 Dec, Urinary frequency 788.41 and Nocturia more than twice per night 788.43 [facility] [id number] [place] [address] 07197- 6252 Nov, [facility] [id number] [place] [address] 59911- 9214 Nov, [facility] [id number] [place] [address] 65150- 1563 Nov, Abdominal pain 789.00 [facility] [id number] [place] [address] 99912- 5969 October, TDAP DX V06.1 [facility] [id number] [place] [address] 57820- 0014 October, [facility] [id number] [place] [address] 44829- 9842 October, Disturbance of skin sensation 782.0 ; Wrist pain, right 719.43 ; Hyperlipidemia 272.4 and Skin lesion of face 709.9 [facility] [id number], [place] [address] Sep, [facility] [id number] [place] [address] 27324- 7305 Sep, [facility] [id number] [place] [address] [id number]- 3597 Aug, [facility] [id number], [place] [address] Aug, [facility] [id number] [place] [address] 33163- 1886 Aug, 2014 [facility] [place] [facility] [address] [id number] [place] [address] 0953 23 Aug, 2014 [facility] [place] [facility] [address] [id number] [place] [address] 8715 16 Aug, 2014 [facility] [place] [facility] [address] [id number] [place] [address]- 7046 16 Aug, 2014 [facility] [place] [facility] [address] [id number] [place] [address] 3630 14 Aug, 2014 [facility] [place] [facility] [address] [id number] [place] [address]- 7360 14 Aug, 2014 [facility] [place] [facility] [address] [id number] [place] [address]- 1474 Aug, [facility] [place] [facility] [address] [address] [id number] [place] [address] Aug, [facility] [place] [facility] [address] [id number] [place] [address] Aug, [facility] [place] [facility] [address] [id number] [place] [address] 6080 Aug, [facility] [place] [facility] [address] [id number] [place] [address] 1617 Aug, [facility] [place] [facility] [address] [id number] [place] [address] 6038 Aug, [facility] [place] [facility] [address] [id number], [place] [address] Jul, 2014 [facility] [place] [facility] [address] [id number] [place] [address] 9356 Jul, 2014 [facility] [place] [facility] [address] [id number] [place] [address] 6001 Jul, [facility] [place] [facility] [address] [id number] [place] [address] 5[address] Jul, 2014 [facility] [place] [facility] [address] [id number] [place] [address] 9587 Jul, [facility] [address] [id number] [place] [address] 9558 Jul, [facility] [place] [facility] [address] [id number] [place] [address] 3908 Jun, [facility] [place] [facility] [address] [id number] [place] [address] 4938 Jun, [facility] [place] [facility] [address] [id number] [place] [address]- 0987 Jun, [facility] [place] [facility] [address] [id number] [place] [address] 8797 Jun, [facility] [place] [facility] [address] [id number] [place] [address] 4013 Jun, [facility] [place] [facility] [address] [id number] [place] [address] 2205 Jun, [facility] [place] [facility] [address] [id number] [place] [address]- 7636 Jun, [facility] [place] [facility] [address] [id number] [place] [address] 5441 Jun, [facility] [place] [facility] [address] [id number] [place] [address] 9944 May, [facility] [place] [facility] [address] [id number] [place] [address]- 1389 19 May, 2014 [facility] [place] [facility] [address] [id number] [place] [address]- 4872 18 May, 2014 [facility] [place] [facility] [address] [id number] [place] [address]- 1865 18 May, 2014 [facility] [place] [facility] [address] [id number] [place] [address]- 2105 15 May, 2014 [facility] [place] [facility] [address] [id number] [place] [address]- 1608 May, [facility] [place] [facility] [address] [id number] [place] [address]- 5153 May, [facility] [place] [facility] [address] [id number] [place] [address]- 0541 May, [facility] [place] [facility] [address] [id number] [place] [address]- 0926 May, [facility] [place] [facility] [address] [id number] [place] [address]- 5305 May, [facility] [place] [facility] [address] [id number] [place] [address]- 8692 May, [facility] [place] [facility] [address] [id number] [place] [address]- 7028 May, [facility] [place] [facility] [address] [id number] [place] [address]- 0785 Apr, [facility] [place] [facility] [address] [id number] [place] [address]- 5524 Apr, [facility] [place] [facility] [address] [id number] [place] [address]- 7775 Apr, [facility] [place] [facility] [address] [id number] [place] [address]- 7033 Apr, [facility] [place] [facility] [address] [id number] [place] [address]- 8747 Apr, [facility] [place] [facility] [address] [id number], [place] [address]107 Apr, [facility] [place] [facility] [address] [id number] [place] [address]- 2652 Apr, [facility] [place] [facility] [address] [id number] [place] [address]- 8116 Apr, [facility] [place] [facility] [address] [id number] [place] [address]- 5897 Apr, [facility] [place] [facility] [address] [id number] [place] [address]- 7567 13 Apr, 2014 [facility] [place] [facility] [address] [id number] [place] [address]- 6938 Apr, [facility] [place] [facility] [address] [id number] [place] [address]- 4690 Apr, [facility] [place] [facility] [address] [id number] [place] [address]- 0866 Mar, [facility] [place] [facility] [address] [id number] [place] [address]- 6117 Mar, [facility] [place] [facility] [address] [id number] [place] [address]- 6307 Mar, [facility] [place] [facility] [address] [id number] [place] [address]- 1165 Mar, [facility] [place] [facility] [address] [id number] [place] [address]- 9753 10 Feb, 2014 [facility] [place] [facility] [address] [id number] [place] [address]- 4251 10 Feb, 2014 [facility] [place] [facility] [address] [id number] [place] [address]- 9945 05 Feb, 2014 [facility] [place] [facility] [address] [id number] [place] [address]- 3395 05 Feb, 2014 [facility] [place] [facility] [address] [id number] [place] [address]- 3662 Feb, [facility] [place] [facility] [address] [id number] [place] [address]- 2542 05 Feb, 2013 [facility] [place] [facility] [address] [id number] [place] [address]- 0779 Jan, [facility] [place] [facility] [address] [id number] [place] [address]- 5171 Jan, [facility] [place] [facility] [address] [id number] [place] [address]- 4732 Jan, [facility] [place] [facility] [address] [id number] [place] [address]- 1425 Jan, [facility] [place] [facility] [address] [id number] [place] [address]- 5221 Jan, [facility] [place] [facility] [address] [id number] [place] [address]- 6932 Jan, [facility] [place] [facility] [address] [id number] [place] [address]- 4196 Jan, [facility] [place] [facility] [address] [id number] [place] [address]- 0536 Jan, [facility] [place] [facility] [address] [id number] [place] [address]- 7483 Jan, [facility] [place] [facility] [address] [id number] [place] [address]- 4193 Jan, [facility] [place] [facility] [address] [id number] [place] [address]- 5433 Jan, [facility] [place] [facility] [address] [id number] [place] [address]- 1008 Jan, [facility] [place] [facility] [address] [id number] [place] [address]- 9535 Jan, [facility] [place] [facility] [address] [id number] [place] [address]- 0369 Jan, [facility] [place] [facility] [address] [id number] [place] [address]- 8564 Dec, [facility] [place] [facility] [address] [id number] [place] [address]- 0086 Dec, [facility] [place] [facility] [address] [id number] [place] [address]- 2478 Dec, [facility] [place] [facility] [address] [id number] [place] [address]- 1671 Dec, [facility] [place] [facility] [address] [id number] [place] [address]- 4010 Nov, [facility] [place] [facility] [address] [id number] [place] [address]- 4108 Nov, [facility] [place] [facility] [address] [id number] [place] [address]- 4727 Nov, [facility] [place] [facility] [address] [id number] [place] [address]- 0893 Nov, [facility] [place] [facility] [address] [id number] [place] [address]- 9722 Nov, [facility] [place] [facility] [address] [id number] [place] [address]- 3373 October, [facility] [place] [facility] [address] [id number] [place] [address]- 6206 October, [facility] [place] [facility] [address] [id number] [place] [address]- 6996 October, [facility] [place] [facility] [address] [id number] [place] [address]- 0959 October, [facility] [place] [facility] [address] [id number] [place] [address]- 5779 October, [facility] [place] [facility] [address] [id number] [place] [address]- 8250 October, [facility] [place] [facility] [address] [id number] [place] [address]- 9983 October, [facility] [place] [facility] [address] [id number] [place] [address]- 8515 October, [facility] [place] [facility] [address] [id number] [place] [address]- 6979 October, [facility] [place] [facility] [address] [id number] [place] [address]- 6342 October, [facility] [place] [facility] [address] [id number] [place] [address]- 1755 October, [facility] [place] [facility] [address] [id number] [place] [address]- 0465 October, [facility] [address] [id number] [place] [address]- 0349 October, [facility] [address] [id number] [place] [address]- 1902 October, [facility] [address] [id number] [place] [address]- 9747 Sep, [facility] [address] [id number] [place] [address]- 4422 Sep, [facility] [address] [id number] [place] [address]- 4813 Sep, [facility] [address] [id number] [place] [address]- 8437 Sep, [facility] [address] [id number] [place] [address]- 5170 Sep, [facility] [address] [id number] [place] [address]- 2769 Sep, [facility] [address] [id number] [place] [address]- 7372 Sep, [facility] [address] [id number] [place] [address]- 0621 Sep, [facility] [place] [facility] [address] [id number] [place] [address]- 1385 Sep, [facility] [address] [id number] [place] [address]- 1710 Sep, [facility] [place] [facility] [address] [id number] [place] [address]- 0457 Sep, [facility] [place] [facility] [address] [id number] [place] [address]- 3796 Sep, [facility] [place] [facility] [address] [id number] [place] [address]- 7363 Sep, [facility] [place] [facility] [address] [id number] [place] [address]- 6317 Sep, [facility] [place] [facility] [address] [id number] [place] [address]- 5162 Sep, [facility] [place] [facility] [address] [id number] [place] [address]- 1464 Aug, [facility] [place] [facility] [address] [id number] [place] [address]- 7083 Aug, [facility] [place] [facility] [address] [id number] [place] [address]- 8841 Aug, [facility] [place] [facility] [address] [id number] [place] [address]- 7236 Aug, [facility] [place] [facility] [address] [id number] [place] [address]- 8402 Jul, [facility] [place] [facility] [address] [id number] [place] [address]- 7683 Jul, [facility] [place] [facility] [address] [id number] [place] [address]- 6854 Jul, [facility] [place] [facility] [address] [id number] [place] [address]- 6621 Jul, [facility] [place] [facility] [address] [id number] [place] [address]- 3707 Jun, [facility] [place] [facility] [address] [id number], [place] [address]- 7405 Jun, [facility] [place] [facility] [address] [id number] [place] [address]- 4333 Jun, [facility] [place] [facility] [address] [id number] [place] [address]- 0299 Jun, [facility] [place] [facility] [address] [id number] [place] [address]- 0182 Jun, [facility] [place] [facility] [address] [id number] [place] [address]- 5996 10 Jun, 2013 [facility] [address] [id number] [place] [address]- 0889 08 Jun, 2013 [facility] [address] [id number] [place] [address]- 8540 08 Jun, 2013 [facility] [address] [id number] [place] [address]- 3995 20 May, 2013 [facility] [address] [id number] [place] [address]- 9935 20 May, 2013 [facility] [address] [id number] [place] [address]- 5846 18 May, 2013 [facility] [address] [id number] [place] [address]- 8692 18 May, 2013 [facility] [address] [id number] [place] [address]- 5748 17 May, 2013 [facility] [address] [id number] [place] [id number] 17 May, 2013 [facility] [address] [id number] [place] [address]- 7238 17 May, 2013 [facility] [address] [id number] [place] [address]- 2557 17 May, 2013 [facility] [address] [id number] [place] [address]- 8234 16 May, 2013 [facility] [place] [facility] [address] [id number] [place] [address]- 8953 16 May, 2013 [facility] [place] [facility] [address] [id number] [place] [address]- 9335 14 May, 2013 [facility] [place] [facility] [address] [id number] [place] [address]- 2869 14 May, 2013 [facility] [address] [facility] [id number] [place] [address]- 5519 13 May, 2013 [facility] [address] [id number] [place] [address]- 1431 May, [facility] [place] [facility] [address] [id number] [place] [address]- 1807 May, [facility] [place] [facility] [address] [id number] [place] [address]- 1702 May, [facility] [place] [facility] [address] [id number] [place] [address]- 3767 May, [facility] [place] [facility] [address] [id number] [place] [address]- 7915 May, [facility] [place] [facility] [address] [id number] [place] [address]- 4729 Apr, [facility] [place] [facility] [address] [id number] [place] [address]- 4585 Apr, [facility] [place] [facility] [address] [id number] [place] [address]- 8605 Apr, [facility] [place] [facility] [address] [id number] [place] [address]- 6552 Apr, [facility] [place] [facility] [address] [id number] [place] [address]- 1436 Aug, [facility] [place] [facility] [address] [id number] [place] [address]- 8225 Aug, [facility] [place] [facility] [address] [id number] [place] [address]- 8387 Aug, [facility] [place] [facility] [address] [id number] [place] [address]- 5978 05 Aug, 2012 [facility] [place] [facility] [address] [id number] [place] [address]- 3468 04 Jul, 2012 [facility] [place] [facility] [address] [id number] [place] [address]- 5124 Jun, [facility] [place] [facility] [address] [id number] [place] [address]- 1560 Jun, [facility] [place] [facility] [address] [id number] [place] [address]- 5021 Jun, [facility] [place] [facility] [address] [id number] [place] [address]- 1136 Jun, [facility] [place] [facility] [address] [facility] [id number] [place] 7223 May, [facility] [place] [facility] [address] [id number] [place] [address]- 0567 May, [facility] [place] [facility] [address] [id number] [place] [address]- 9626 May, [facility] [place] [facility] [address] [id number] [place] [address]- 7292 May, [facility] [place] [facility] [address] [id number] [place] [address]- 1903 May, [facility] [place] [facility] [address] [id number] [place] [address]- 3362 May, [facility] [place] [facility] [address] [id number] [place] [address]- 8347 May, [facility] [place] [facility] [address] [id number] [place] [address]- 3222 Apr, [facility] [place] [facility] [address] [id number] [place] [address]- 5348 Apr, [facility] [place] [facility] [address] [id number], [place] [address]- 9617 Apr, [facility] [place] [facility] [address] [id number] [place] [address]- 1160 Apr, [facility] [place] [facility] [address] [id number] [place] [address]- 4353 Apr, [facility] [place] [facility] [address] [id number] [place] [address]- 5491 Apr, [facility] [place] [facility] [address] [id number] [place] [address]- 8065 Apr, [facility] [place] [facility] [address] [id number] [place] [address]- 4541 Mar, [facility] [place] [facility] [address] [id number] [place] [address]- 3886 Mar, [facility] [place] [facility] [address] [id number] [place]346 Mar, [facility] [place] [facility] [address] [id number] [place] [address]- 8512 Mar, [facility] [place] [facility] [address] [id number] [place] [address]- 3036 Mar, [facility] [place] [facility] [address] [id number] [place] [address]- 3071 Mar, [facility] [place] [facility] [address] [id number] [place] [address]- 2905 Mar, [facility] [place] [facility] [address] [id number] [place] [address]- 4881 Mar, [facility] [place] [facility] [address] [id number] [place] [address]- 4084 Mar, [facility] [place] [facility] [address] [id number] [place] [address]- 2000 Mar, [facility] [place] [facility] [address] [id number] [place] [address]- 7266 Mar, [facility] [place] [facility] [address] [id number] [place] [address]- 5653 Mar, [facility] [place] [facility] [address] [id number] [place] [address]- 5716 06 Feb, 2012 [facility] [place] [facility] [address] [id number] [place] [address]- 3010 Jan, [facility] [place] [facility] [address] [id number] [place] [address]- 5590 Jan, [facility] [place] [facility] [address] [id number] [place] [address]- 3926 Jan, [facility] [place] [facility] [address] [id number] [place] [address]- 4529 Jan, [facility] [place] [facility] [address] [id number] [place] [address]- 1746 Jan, [facility] [place] [facility] [address] [id number] [place] [address]- 6486 Dec, [facility] [place] [facility] [address] [id number] [place] [address] Dec, [facility] [place] [facility] [address] [id number] [place] [address] Nov, [facility] [place] [facility] [address] [id number] [place] [address] Nov, [facility] [place] [facility] [address] [id number] [place] [address] Nov, [facility] [place] [facility] [address] [id number] [place] [address] October, [facility] [place] [facility] [address] [id number] [place] [address] October, [facility] [place] [facility] [address] [id number] [place] [address] October, [facility] [place] [facility] [address] [id number] [place] [address] October, [facility] [place] [facility] [address] [id number] [place] [address] October, [facility] [place] [facility] [address] [id number] [place] [address] October, [facility] [place] [facility] [address] [id number] [place] [address] October, [facility] [place] [facility] [address] [id number] [place] [address] 9216 26 Sep, 2011 [facility] [address] [id number] [place] [address] 269[address] 26 Sep, 2011 [facility] [place] [facility] [address] [id number] [place] [address] 7767 26 Sep, 2011 [facility] [place] [facility] [address] [id number] [place] [address]684 25 Sep, 2011 [facility] [place] [facility] [address] [id number] [place] [address]- 8568 24 Sep, 2011 [facility] [address] [id number] [place] [address] 2975 19 Sep, 2011 [facility] [place] [facility] [address] [id number] [place] [address] 0542 17 Sep, 2011 [facility] [address] [id number] [place] [address] 1242 16 Sep, 2011 [facility] [place] [facility] [address] [id number] [place] [address] 0936 16 Sep, 2011 [facility] [address] [id number] [place] [address] 288[address] 14 Sep, 2011 [facility] [place] [facility] [address] [id number] [place] [address] 8037 13 Sep, 2011 [facility] [place] [facility] [address] [id number] [place] [address]793 10 Sep, 2011 [facility] [place] [facility] [address] [id number] [place] [address] 9346 09 Sep, 2011 [facility] [place] [facility] [address] [id number] [place] [address] 21[address] 27 Aug, 2011 [facility] [place] [facility] [address] [id number] [place] [address]- [address]50 12 Aug, 2011 [facility] [place] [facility] [address] [id number] [place] [address] 8742 08 Aug, 2011 [facility] [place] [facility] [address] [id number] [place] [address]- 4261 06 Aug, 2011 [facility] [place] [facility] [address] [id number] [place] [address] 5426 28 Jul, 2011 [facility] [place] [facility] [address] [id number] [place] [address] 2546 22 Jul, 2011 [facility] [place] [facility] [address] [id number] [place] [address] 2546 16 Jul, 2011 [facility] [place] [facility] [address] [id number] [place] [address]22 15 Jul, 2011 [facility] [place] [facility] [address] [id number] [place] [address] 6116 14 Jul, 2011 [facility] [place] [facility] [address] [id number] [place] [address]64 10 Jul, 2011 [facility] [place] [facility] [address] [id number] [place] [address] Jun, [facility] [place] [facility] [address] [id number] [place] [address] 18[address] Jun, [facility] [place] [facility] [address] [id number] [place] [address] Jun, [facility] [place] [facility] [address] [id number] [place] [address] 39[address] Jun, [facility] [place] [facility] [address] [id number] [place] [address] 9673 Jun, [facility] [place] [facility] [address] [id number] [place] [address] 3697 May, [facility] [place] [facility] [address] [id number] [place] [address] 3975 May, [facility] [place] [facility] [address] [id number] [place] [address] 2419 May, [facility] [place] [facility] [address] [id number] [place] [address] 6348 14 May, 2011 [facility] [place] [facility] [address] [id number] [place] [address] 7[address] May, [facility] [place] [facility] [address] [id number] [place] [address] May, [facility] [place] [facility] [address] [id number] [place] [address]- 2791 May, [facility] [place] [facility] [address] [id number] [place] [address]- 9835 Apr, [facility] [place] [facility] [address] [id number] [place] [address]- 9[address] Apr, [facility] [place] [facility] [address] [id number] [place] [address]- 2858 Apr, [facility] [place] [facility] [address] [id number] [place] [address]- 6025 Apr, [facility] [place] [facility] [address] [id number] [place] [address]- 0634 Apr, [facility] [place] [facility] [address] [id number] [place] [address]- 6485 Apr, [facility] [place] [facility] [address] [id number] [place] [address]- 4706 Mar, [facility] [place] [facility] [address] [id number], [place] [address] Mar, [facility] [place] [facility] [address] [id number], [place] [address] Mar, [facility] [place] [facility] [address] [id number] [place] [address] 4242 Mar, [facility] [place] [facility] [address] [id number] [place] [address]- 2859 Jan, [facility] [place] [facility] [address] [id number] [place] [address] 2263 Dec, [facility] [place] [facility] [address] [id number] [place] [address]- 2700 13 Dec, 2010 [facility] [address] [id number] [place] [address]- [address]126 11 Oct, 2010 [facility] [place] [facility] [address] [id number] [place] [address]- 0626 20 Sep, 2010 [facility] [address] [id number] [place] [address]- 2046 14 Sep, 2010 [facility] [place] [facility] [address] [id number] [place] [address] 2546 17 Jul, 2010 [facility] [address] [id number] [place] [address]- 5466 16 Jul, 2010 [facility] [address] [id number] [place] [address]- 0[address] 31 May, 2010 [facility] [place] [facility] [address] [id number] [place] [address]- 8478 May, [facility] [address] [id number] [place] [address]- 7934 May, [facility] [address] [id number] [place] [address]- 5364 May, [facility] [address] [id number] [place] [address]- 1183 Apr, [facility] [place] [facility] [address] [id number] [place] [address] 3672 Apr, [facility] [place] [facility] [address] [id number] [place] [address] 2549 Apr, [facility] [place] [facility] [address] [id number] [place] [address]- 5705 Apr, [facility] [facility] [place] [facility] [address] [id number] [place] [address] Apr, [facility] [place] [facility] [address] [id number] [place] [address] Mar, [facility] [place] [facility] [address] [id number] [place] [address] 14 Mar, 2010 [facility] [place] [facility] [address] [id number] [place] [address] 13 Mar, 2010 [facility] [place] [facility] [address] [id number] [place] [address] 12 Mar, 2010 [facility] [place] [facility] [address] [id number] [place] [address] 20 Jan, 2010 [facility] [place] [facility] [address] [id number] [place] [address] 15 Dec, 2009 [facility] [place] [facility] [address] [id number], [place] [address] 10 Sep, 2009 [facility] [place] [facility] [address] [facility] [id number] [place] [address] 08 May, 2009 [facility] [place] [facility] [address] [id number], [place] [address] 06 May, 2009 [facility] [place] [facility] [address] [id number], [place] [address] 02 May, 2009 [facility] [place] [facility] [address] [id number], [place] [address] 17 Apr, 2009 [facility] [place] [facility] [address] [id number], [place] [address] 17 Apr, 2009 [facility] [place] [facility] [address] [id number], [place] [address] 10 Apr, 2009 [facility] [place] [facility] [address] [id number], [place] [address] 10 Apr, 2009 [facility] [place] [facility] [address] [id number], [place] [address] 09 Apr, 2009 [facility] [place] [facility] [address] [id number], [place] [address] 15 Mar, 2009 [facility] [place] [facility] [address] [facility] [address] [id number] [place] [address] Mar, [facility] [address] [facility] [address] [id number] [place] [address] Jul, IMMUNIZATIONS No Known Immunizations SOCIAL HISTORY Never Assessed REASON FOR VISIT EMR-[facility] PLAN OF CARE VITAL [...] the January before. 03/2018 Hospitalization History Cellulitis-[facility] 12/20/15 Hospitalization History [facility]- Abd pain 03/07/2017 Hospitalization History [facility]- Abd pain 03/14/2017 Hospitalization History [facility]- No bowel movement, rash 04/13/2017 Hospitalization History [facility]- Abd pain r/t kidney surgery on 04/17/2017 Hospitalization History [facility]- Abd pain r/t kidney surgery on 04/18/2017 Hospitalization History [facility]- Lower abd pain 04/30/2017 Hospitalization History [facility]- Cannot urinate 05/30/2017 Hospitalization History [facility]- Pancreatitis Sx 06/29/2017 Hospitalization History [facility]- Stomach pain 07/22/2017 Hospitalization History [facility] [place] [facility]- Left side pain 08/12/2017 Hospitalization History [facility]- Incision site infection 08/30/2017 Hospitalization History [facility]- Post Op Seroma/Hematoma Left Abdomen. Discharged 09/04/17- Dr Daniel 09/02/2017 Hospitalization History [facility]- Right shoulder and back pain 2017 Hospitalization History [facility]- Shoulder/Back pain 11/11/2017 Hospitalization History [facility]- Right shoulder blade pain 12/04/2017 Hospitalization History [facility]- C-Diff 12/13/2017 Hospitalization History C diff et MRSA 12/27/2017
--- NOTE | 2018-10-14 14:32 | ED Abdominal Pain ---
General Chief Complaint: Abdominal/GI Problems Stated Complaint: ABD PAIN Nursing Triage Note: pt states that she started having abd pain for the last 2 weeks. today it is much worse. Pt states she is scheduled for a Surgery with Dr. Roman next . pt states pain is mid abdomen radiating to left side. Pt hx of kidney cancer and kidney removal Sepsis Screen: No Definite Risk Source of Information: Patient Exam Limitations: No Limitations History of Present Illness Date Seen by Provider: Oct 14, 2018 Time Seen by Provider: 14:31 Initial Comments To ER with epigastric abdominal pain for the past 2 weeks the redness around the left flank and left back. Worse than usual today. History of a left-sided hernia, scheduled for surgery next week Dr. Roman. She states this feels like hunger pains but she is not hungry Timing/Duration: 1-2 Days Severity/Quality: Moderate Radiation: No Radiation Associated Symptoms: Denies Symptoms Allergies and Home Medications Allergies Coded Allergies: fentanyl (Verified Allergy, Unknown, 08/25/18) meperidine (Verified Allergy, Unknown, 08/25/18) penicillin G (Verified Allergy, Unknown, 08/25/18) vancomycin (Unverified Adverse Reaction, Intermediate, severe itching, 05/05) Home Medications Cyanocobalamin 1,000 Mcg/Ml Inj, 1,000 MCG IJ MONTHLY, (Reported) Cyclobenzaprine HCl 10 Mg Tablet, 10 MG PO Q8H Prescribed by: DEMETRIO KAY on 07/05/18 1232 Estradiol 2 Mg Tablet, 2 MG PO HS, (Reported) Metoprolol Succinate 25 Mg Tab.er.24h, 25 MG PO HS, (Reported) Nitrofurantoin Monohyd/M-Cryst 100 Mg Capsule, 1 TAB PO BID Prescribed by: DEMETRIO KAY on 09/09/18 1433 Ondansetron 8 Mg Tab.rapdis, 8 MG PO BID PRN for NAUSEA/VOMITING-1ST LINE, ( Reported) Pantoprazole Sodium 40 Mg Tablet.dr, 40 MG PO DAILY Prescribed by: YAN CHAPARRO on 09/21/18 0118 Promethazine HCl 25 Mg Tablet, 25 MG PO Q6H PRN for NAUSEA/VOMITING-2ND LINE, ( Reported) Ropinirole HCl 4 Mg Tablet, 4 MG PO HS, (Reported) Sertraline HCl 50 Mg Tablet, 50 MG PO DAILY, (Reported) Sucralfate 1 Gm Tablet, 1 GM PO QIDACHS Prescribed by: YAN CHAPARRO on 09/21/18 0118 Tizanidine HCl 4 Mg Tablet, 4 MG PO TID PRN for MUSCLE SPASMS, (Reported) Patient Home Medication List Home Medication List Reviewed: Yes Review of Systems Review of Systems Constitutional: see HPI EENTM: No Symptoms Reported Respiratory: No Symptoms Reported Cardiovascular: No Symptoms Reported Gastrointestinal: See HPI, Abdominal Pain Genitourinary: No Symptoms Reported Musculoskeletal: no symptoms reported Skin: no symptoms reported Psychiatric/Neurological: No Symptoms Reported Endocrine: No Symptoms Reported Past Tdcmxnd-Vapxuv-Pwldrm Hx Patient Social History Type Used: Cigarettes 2nd Hand Smoke Exposure: No Recent Foreign Travel: No Contact w/Someone Who Travel: No Recent Infectious Disease Expo: No Recent Hopitalizations: No Immunizations Up To Date Tetanus Booster (TDap): Unknown PED Vaccines UTD: No Date of Pneumonia Vaccine: May 17, 2012 Date of Influenza Vaccine: Jul 03, 2012 Seasonal Allergies Seasonal Allergies: Yes (MILD) Past Medical History Surgeries: Yes Abdominal, Adenoidectomy, Appendectomy, Gallbladder, 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, Nephrectomy, Orthopedic, Tonsillectomy Respiratory: No Asthma Currently Using CPAP: No Currently Using BIPAP: No Cardiac: Yes Hypertension Neurological: Yes (RESTLESS LEG SYNDROME) Headaches /Migraines 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: No (HX ENDOMETRIOSIS ) 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 Sexually Transmitted Disease: No HIV/AIDS: No Genitourinary: Yes (L KIDNEY REMOVED FOR TUMOR-MALIGNANT;) UTI-Chronic Gastrointestinal: Yes Abdominal Hernia, Liver Disease/Jaundice, Pancreatitis, Polyps Musculoskeletal: Yes (COCCYX-REPAIRED, ) Chronic Back Pain Endocrine: Yes (CHRONIC PANCREATITIS; OBESITY) HEENT: No Loss of Vision: Denies Hearing Impairment: Denies Cancer: Yes Kidney Did You Recieve Any Treatments: Yes What Type of Treatment Did You: Surgical Intervention Psychosocial: Yes Anxiety, Depression Integumentary: No Herpes Blood Disorders: No Adverse Reaction/Blood Tranf: No (N/A) Family Medical History Cardiovascular disease 19 FATHER Completed stroke 19 FATHER Diabetes mellitus 19 FATHER Hypercholesterolemia 19 FATHER 19 MOTHER Hypertension 19 FATHER 19 MOTHER Neoplasm 19 MOTHER Psychosocial problem 19 FATHER 19 MOTHER No Pertinent Family Hx, Cancer, Diabetes, Hypertension Physical Exam Vital Signs Vital Signs - First Documented 10/14/18 14:22 Temp 97.6 Pulse 105 Resp 18 B/P (MAP) 176/90 (118) Pulse Ox 100 O2 Delivery Room Air Capillary Refill : Less Than 3 Seconds Height/Weight/BMI Height: 5'2.00" Weight: 260lbs. 0.0oz. 117.489780sk; 47.6 BMI Method:Stated General Appearance: WD/WN, no apparent distress HEENT: PERRL/EOMI, normal ENT inspection Neck: non-tender, full range of motion Respiratory: no respiratory distress, no accessory muscle use Gastrointestinal: normal bowel sounds, soft, tenderness Neurologic/Psychiatric: alert, normal mood/affect Skin: normal color, warm/dry Progress/Results/Core Measures Results/Orders Lab Results Laboratory Tests Test 10/14/18 14:40 10/14/18 15:52 Range/Units White Blood Count 10.8 4.3-11.0 10^3/uL Red Blood Count 4.84 4.35-5.85 10^6/uL Hemoglobin 13.1 11.5-16.0 G/DL Hematocrit 40 35-52 % Mean Corpuscular Volume 84 80-99 FL Mean Corpuscular Hemoglobin 27 25-34 PG Mean Corpuscular Hemoglobin Concent 32 32-36 G/DL Red Cell Distribution Width 14.1 10.0-14.5 % Platelet Count 318 130-400 10^3/uL Mean Platelet Volume 9.3 7.4-10.4 FL Neutrophils (%) (Auto) 73 42-75 % Lymphocytes (%) (Auto) 19 12-44 % Monocytes (%) (Auto) 5 0-12 % Eosinophils (%) (Auto) 3 0-10 % Basophils (%) (Auto) 0 0-10 % Neutrophils # (Auto) 7.9 H 1.8-7.8 X 10^3 Lymphocytes # (Auto) 2.1 1.0-4.0 X 10^3 Monocytes # (Auto) 0.5 0.0-1.0 X 10^3 Eosinophils # (Auto) 0.3 0.0-0.3 10^3/uL Basophils # (Auto) 0.0 0.0-0.1 10^3/uL Sodium Level 138 135-145 MMOL/L Potassium Level 3.9 3.6-5.0 MMOL/L Chloride Level 104 98-107 MMOL/L Carbon Dioxide Level 23 21-32 MMOL/L Anion Gap 11 5-14 MMOL/L Blood Urea Nitrogen 13 7-18 MG/DL Creatinine 0.87 0.60-1.30 MG/DL Estimat Glomerular Filtration Rate > 60 BUN/Creatinine Ratio 15 Glucose Level 105 70-105 MG/DL Calcium Level 9.9 8.5-10.1 MG/DL Corrected Calcium 9.7 8.5-10.1 MG/DL Total Bilirubin 0.3 0.1-1.0 MG/DL Aspartate Amino Transf (AST/SGOT) 50 H 5-34 U/L Alanine Aminotransferase (ALT/SGPT) 37 0-55 U/L Alkaline Phosphatase 58 40-136 U/L Total Protein 7.9 6.4-8.2 GM/DL Albumin 4.2 3.2-4.5 GM/DL Lipase 43 8-78 U/L Urine Color YELLOW Urine Clarity CLEAR Urine pH 5 5-9 Urine Specific [place] 1.020 1.016-1.022 Urine Protein NEGATIVE NEGATIVE Urine Glucose (UA) NEGATIVE NEGATIVE Urine Ketones NEGATIVE NEGATIVE Urine Nitrite NEGATIVE NEGATIVE Urine Bilirubin NEGATIVE NEGATIVE Urine Urobilinogen NORMAL NORMAL MG/DL Urine Leukocyte Esterase NEGATIVE NEGATIVE Urine RBC (Auto) NEGATIVE NEGATIVE Urine RBC NONE /HPF Urine WBC 0-2 /HPF Urine Squamous Epithelial Cells 2-5 /HPF Urine Renal Epithelial Cells NONE /HPF Urine Crystals NONE /LPF Urine Bacteria NEGATIVE /HPF Urine Casts NONE /LPF Urine Mucus SMALL H /LPF Urine Culture Indicated NO My Orders Orders - GEORGES FINN APRN Cbc With Automated Diff (10/14/18 14:28) Comprehensive Metabolic Panel (10/14/18 14:28) Lipase (10/14/18 14:28) Ua Culture If Indicated (10/14/18 14:28) Ed Iv/Invasive Line Start (10/14/18 14:28) Ketorolac Injection (Toradol Injection) (10/14/18 14:30) Antacid Suspension (Mylanta Suspension (10/14/18 14:30) Lidocaine 2% Viscous 15 Ml (Xylocaine Vi (10/14/18 14:30) Lorazepam Injection (Ativan Injection) (10/14/18 14:30) Medications Given in ED Current Medications Medications Dose Ordered Sig/Neal Route Start Time Stop Time Status Last Admin Dose Admin Al Hydrox/Mg Hydrox/Simethicone 30 ml ONCE ONCE PO 10/14/18 14:30 10/14/18 14:31 DC 10/14/18 14:45 30 ML Ketorolac Tromethamine 15 mg ONCE ONCE IVP 10/14/18 14:30 10/14/18 14:31 DC 10/14/18 14:45 15 MG Lidocaine HCl 10 ml ONCE ONCE PO 10/14/18 14:30 10/14/18 14:31 DC 10/14/18 14:45 10 ML Lorazepam 0.5 mg ONCE PRN IVP 10/14/18 14:30 10/14/18 14:45 0.5 MG Vital Signs/I&O 10/14/18 14:22 Temp 97.6 Pulse 105 Resp 18 B/P (MAP) 176/90 (118) Pulse Ox 100 O2 Delivery Room Air Blood Pressure Mean: 118 Departure Impression Primary Impression: Chronic abdominal pain Disposition: 01 HOME, SELF-CARE Condition: Stable Departure-Patient Inst. Decision time for Depature: 16:37 Referrals: CARMEN GIBBS MD (PCP/Family) Primary Care Physician Patient Instructions: Chronic Pain Add. Discharge Instructions: 1. Keep your appointment with Dr. Roman. Return to ER for any concerns. All discharge instructions reviewed with patient and/or family. Voiced understanding. GEORGES FINN NET SOFTWARE DEVELOPER Oct 14, 2018 14:32
[2018-10-14 14:49] LABS: BASOPHILS % (AUTO) 0 % (0-10); EOSINOPHILS # (AUTO) 0.3 10^3/uL (0.0-0.3); EOSINOPHILS % (AUTO) 3 % (0-10); HEMATOCRIT 40 % (35-52); HEMOGLOBIN 13.1 G/DL (11.5-16.0); LYMPHOCYTES # (AUTO) 2.1 X 10^3 (1.0-4.0); LYMPHOCYTES % (AUTO) 19 % (12-44); MEAN CORPUSCULAR HEMOGLOBIN 27 PG (25-34); MEAN CORPUSCULAR HGB CONC 32 G/DL (32-36); MEAN CORPUSCULAR VOLUME 84 FL (80-99); MEAN PLATELET VOLUME 9.3 FL (7.4-10.4); MONOCYTES # (AUTO) 0.5 X 10^3 (0.0-1.0); MONOCYTES % (AUTO) 5 % (0-12); NEUTROPHILS # (AUTO) 7.9 X 10^3 (1.8-7.8); NEUTROPHILS % (AUTO) 73 % (42-75); PLATELET COUNT 318 10^3/uL (130-400); RED CELL DISTRIBUTION WIDTH 14.1 % (10.0-14.5); WHITE BLOOD COUNT 10.8 10^3/uL (4.3-11.0)
[2018-10-14 15:08] LABS: ALANINE AMINOTRANSFERASE 37 U/L (0-55); ALBUMIN 4.2 GM/DL (3.2-4.5); ALKALINE PHOSPHATASE 58 U/L (40-136); BILIRUBIN,TOTAL 0.3 MG/DL (0.1-1.0); BUN/CREATININE RATIO 15; CALCIUM 9.9 MG/DL (8.5-10.1); CARBON DIOXIDE 23 MMOL/L (21-32); CHLORIDE 104 MMOL/L (98-107); CREATININE SERUM 0.87 MG/DL (0.60-1.30); GFR ESTIMATED > 60; GLUCOSE 105 MG/DL (70-105); LIPASE 43 U/L (8-78); POTASSIUM 3.9 MMOL/L (3.6-5.0); SODIUM 138 MMOL/L (135-145); TOTAL PROTEIN 7.9 GM/DL (6.4-8.2)
[2018-10-14 16:11] LABS: BILIRUBIN,URINE NEGATIVE (NEGATIVE); CLARITY,URINE CLEAR; COLOR,URINE YELLOW; GLUCOSE, URINE (UA) NEGATIVE (NEGATIVE); KETONES,URINE NEGATIVE (NEGATIVE); LEUKOCYTE ESTERASE ,URINE NEGATIVE (NEGATIVE); NITRITE,URINE NEGATIVE (NEGATIVE); PH,URINE 5 (5-9); PROTEIN,URINE NEGATIVE (NEGATIVE); UROBILINOGEN,URINE NORMAL (NORMAL)
[2018-10-14 16:29] LABS: BACTERIA,URINE NEGATIVE /HPF; WBC,URINE 0-2 /HPF
[2018-10-14 16:43] VITALS: BP 176/90
[2018-10-15] MEDS ORDERED: ESTR1TAB24 PO (09:12)
[2018-10-15] MEDS ORDERED: PHEN-483 PO (09:12)
[2018-10-15] MEDS ORDERED: OMEP40CA36 PO (09:12)
== END 2018-10-14 16:48 | disposition home or self-care (01) ==
LOC: EDUNIT# 14:16 → ER 14:17
DX: R10.13 Epigastric pain (principal); G89.29 Other chronic pain; J45.909 Unspecified asthma, uncomplicated; I10 Essential (primary) hypertension; G43.909 Migraine, unspecified, not intractable, without status migrainosus; G25.81 Restless legs syndrome; E66.9 Obesity, unspecified; F41.9 Anxiety disorder, unspecified; F32.9 Major depressive disorder, single episode, unspecified; Z85.528 Personal history of other malignant neoplasm of kidney; Z86.19 Personal history of other infectious and parasitic diseases; Z82.49 Family history of ischemic heart disease and other diseases of the circulatory system; Z86.010 Personal history of colon polyps; Z87.440 Personal history of urinary (tract) infections; Z87.448 Personal history of other diseases of urinary system; Z87.19 Personal history of other diseases of the digestive system; Z88.0 Allergy status to penicillin; Z88.1 Allergy status to other antibiotic agents; Z88.8 Allergy status to other drugs, medicaments and biological substances; Z90.49 Acquired absence of other specified parts of digestive tract; Z98.890 Other specified postprocedural states; Z90.710 Acquired absence of both cervix and uterus; Z90.89 Acquired absence of other organs; Z90.5 Acquired absence of kidney
CPT/HCPCS: 36415; 80053; 81000; 83690; 85025; 85027; 96374; 96375

== ENCOUNTER 2018-10-14 20:28 | Inpatient (IN) | payer MEDICARE, MEDICAID ==
[~2018-10-14] VITALS: Ht 157.5 cm; Wt 98.0 kg
[2018-10-14] MEDS ORDERED: PROMETHAZINE INJ 25 MG/ML (PHENERGAN) AMP ONE (20:33)
[2018-10-14] MEDS ORDERED: KETOROLAC 60 MG/2 ML VIAL IM ONE (21:00)
--- NOTE | 2018-10-14 21:11 | ED Abdominal Pain ---
General Chief Complaint: Abdominal/GI Problems Stated Complaint: VOMITING,ABD PAIN Nursing Triage Note: pt was seen in the ED a couple hours ago and was told to come back if the pain got worse. Pt states pain is worse and she is vomiting buckets. Sepsis Screen: No Definite Risk Source of Information: Patient Exam Limitations: No Limitations History of Present Illness Date Seen by Provider: Oct 14, 2018 Time Seen by Provider: 21:10 Initial Comments To ER for the second time today with epigastric left-sided abdominal pain nausea and vomiting. She was seen earlier today with unremarkable labs. Imaging was not done as she's had a multitude of imaging studies for this chronic pain. Timing/Duration: 1-2 Days Severity/Quality: Moderate Location: LLQ, Epigastric Radiation: No Radiation Activities at Onset: None Associated Symptoms: Nausea/Vomiting Allergies and Home Medications Allergies Coded Allergies: fentanyl (Verified Allergy, Unknown, 08/25/18) meperidine (Verified Allergy, Unknown, 08/25/18) penicillin G (Verified Allergy, Unknown, 08/25/18) vancomycin (Unverified Adverse Reaction, Intermediate, severe itching, 05/05) Home Medications Cyanocobalamin 1,000 Mcg/Ml Inj, 1,000 MCG IJ MONTHLY, (Reported) Cyclobenzaprine HCl 10 Mg Tablet, 10 MG PO Q8H Prescribed by: DEMETRIO KAY on 07/05/18 1232 Estradiol 2 Mg Tablet, 2 MG PO HS, (Reported) Metoprolol Succinate 25 Mg Tab.er.24h, 25 MG PO HS, (Reported) Nitrofurantoin Monohyd/M-Cryst 100 Mg Capsule, 1 TAB PO BID Prescribed by: DEMETRIO KAY on 09/09/18 1433 Ondansetron 8 Mg Tab.rapdis, 8 MG PO BID PRN for NAUSEA/VOMITING-1ST LINE, ( Reported) Pantoprazole Sodium 40 Mg Tablet.dr, 40 MG PO DAILY Prescribed by: YAN CHAPARRO on 09/21/18 0118 Promethazine HCl 25 Mg Tablet, 25 MG PO Q6H PRN for NAUSEA/VOMITING-2ND LINE, ( Reported) Ropinirole HCl 4 Mg Tablet, 4 MG PO HS, (Reported) Sertraline HCl 50 Mg Tablet, 50 MG PO DAILY, (Reported) Sucralfate 1 Gm Tablet, 1 GM PO QIDACHS Prescribed by: YAN CHAPARRO on 09/21/18 0118 Tizanidine HCl 4 Mg Tablet, 4 MG PO TID PRN for MUSCLE SPASMS, (Reported) Patient Home Medication List Home Medication List Reviewed: Yes Review of Systems Review of Systems Constitutional: see HPI EENTM: No Symptoms Reported Respiratory: No Symptoms Reported Cardiovascular: No Symptoms Reported Gastrointestinal: See HPI, Abdominal Pain, Nausea Genitourinary: No Symptoms Reported Musculoskeletal: no symptoms reported Skin: no symptoms reported Psychiatric/Neurological: No Symptoms Reported Endocrine: No Symptoms Reported Past Chlcgts-Ohawpd-Innzcp Hx Patient Social History Alcohol Use: Denies Use Recreational Drug Use: No Smoking Status: Current Everyday Smoker Type Used: Cigarettes 2nd Hand Smoke Exposure: No Recent Foreign Travel: No Contact w/Someone Who Travel: No Recent Infectious Disease Expo: No Recent Hopitalizations: No Immunizations Up To Date Tetanus Booster (TDap): Unknown PED Vaccines UTD: No Date of Pneumonia Vaccine: May 17, 2012 Date of Influenza Vaccine: Jul 03, 2012 Seasonal Allergies Seasonal Allergies: Yes (MILD) Past Medical History Surgeries: Yes Abdominal, Adenoidectomy, Appendectomy, Gallbladder, 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, Nephrectomy, Orthopedic, Tonsillectomy Respiratory: No Asthma Currently Using CPAP: No Currently Using BIPAP: No Cardiac: Yes Hypertension Neurological: Yes (RESTLESS LEG SYNDROME) Headaches /Migraines 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: No (HX ENDOMETRIOSIS ) 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 Sexually Transmitted Disease: No HIV/AIDS: No Genitourinary: Yes (L KIDNEY REMOVED FOR TUMOR-MALIGNANT;) UTI-Chronic Gastrointestinal: Yes Abdominal Hernia, Liver Disease/Jaundice, Pancreatitis, Polyps Musculoskeletal: Yes (COCCYX-REPAIRED, ) Chronic Back Pain Endocrine: Yes (CHRONIC PANCREATITIS; OBESITY) HEENT: No Loss of Vision: Denies Hearing Impairment: Denies Cancer: Yes Kidney Did You Recieve Any Treatments: Yes What Type of Treatment Did You: Surgical Intervention Psychosocial: Yes Anxiety, Depression Integumentary: No Herpes Blood Disorders: No Adverse Reaction/Blood Tranf: No (N/A) Family Medical History Cardiovascular disease 19 FATHER Completed stroke 19 FATHER Diabetes mellitus 19 FATHER Hypercholesterolemia 19 FATHER 19 MOTHER Hypertension 19 FATHER 19 MOTHER Neoplasm 19 MOTHER Psychosocial problem 19 FATHER 19 MOTHER No Pertinent Family Hx, Cancer, Diabetes, Hypertension Physical Exam Vital Signs Vital Signs - First Documented Capillary Refill : Less Than 3 Seconds Height/Weight/BMI Height: 5'2.00" Weight: 220lbs. 0.0oz. 99.296543ag; 47.6 BMI Method:Estimated General Appearance: WD/WN, mild distress (actively vomiting on arrival. 25 mg intramuscular Phenergan given.), obese HEENT: PERRL/EOMI, normal ENT inspection Respiratory: normal breath sounds, no respiratory distress, no accessory muscle use Cardiovascular: regular rate, rhythm, no murmur Gastrointestinal: normal bowel sounds, soft, tenderness (epigastric) Extremities: normal range of motion, non-tender Neurologic/Psychiatric: alert, normal mood/affect, oriented x 3 Skin: normal color, warm/dry Progress/Results/Core Measures Results/Orders Lab Results Laboratory Tests Test 10/14/18 22:07 Range/Units White Blood Count 13.1 H 4.3-11.0 10^3/uL Red Blood Count 4.87 4.35-5.85 10^6/uL Hemoglobin 13.4 11.5-16.0 G/DL Hematocrit 41 35-52 % Mean Corpuscular Volume 83 80-99 FL Mean Corpuscular Hemoglobin 28 25-34 PG Mean Corpuscular Hemoglobin Concent 33 32-36 G/DL Red Cell Distribution Width 14.0 10.0-14.5 % Platelet Count 294 130-400 10^3/uL Mean Platelet Volume 9.7 7.4-10.4 FL Neutrophils (%) (Auto) 86 H 42-75 % Lymphocytes (%) (Auto) 10 L 12-44 % Monocytes (%) (Auto) 3 0-12 % Eosinophils (%) (Auto) 1 0-10 % Basophils (%) (Auto) 0 0-10 % Neutrophils # (Auto) 11.2 H 1.8-7.8 X 10^3 Lymphocytes # (Auto) 1.3 1.0-4.0 X 10^3 Monocytes # (Auto) 0.4 0.0-1.0 X 10^3 Eosinophils # (Auto) 0.2 0.0-0.3 10^3/uL Basophils # (Auto) 0.0 0.0-0.1 10^3/uL My Orders Orders - GEORGES FINN APRN Promethazine Injection (Phenergan Injec (10/14/18 20:33) Ct Abdomen/Pelvis Wo (10/14/18 20:54) Ketorolac Injection (Toradol Injection) (10/14/18 21:00) Cbc With Automated Diff (10/14/18 22:01) Comprehensive Metabolic Panel (10/14/18 22:01) Chest 1 View, Ap/Pa Only (10/14/18 22:01) Medications Given in ED Current Medications Medications Dose Ordered Sig/Neal Route Start Time Stop Time Status Last Admin Dose Admin Ketorolac Tromethamine 60 mg ONCE ONCE IM 10/14/18 21:00 10/14/18 21:01 DC 10/14/18 21:44 60 MG Promethazine HCl 25 mg STK-MED ONCE .ROUTE 10/14/18 20:33 10/14/18 20:37 DC 10/14/18 20:39 25 MG Vital Signs/I&O 10/14/18 20:33 B/P (MAP) Departure Impression Primary Impression: Abdominal pain Qualified Codes: R10.13 - Epigastric pain Disposition: HOME, SELF-CARE Condition: Stable Departure-Patient Inst. Decision time for Depature: 21:23 Referrals: CARMEN GIBBS MD (PCP/Family) Primary Care Physician Patient Instructions: No Instuctions Given Add. Discharge Instructions: Return to ER for any fevers or chills. Follow-up with her doctor next week. All discharge instructions reviewed with patient and/or family. Voiced understanding. GEORGES FINN APRN Oct 14, 2018 21:11
--- NOTE | 2018-10-14 21:36 | Diagnostic Imaging Report ---
PROCEDURE: CT abdomen and pelvis without contrast. TECHNIQUE: Multiple contiguous axial images were obtained through the abdomen and pelvis without the use of intravenous contrast. Auto Exposure Controls were utilized during the CT exam to meet ALARA standards for radiation dose reduction. INDICATION: Upper abdominal pain with nausea and vomiting. COMPARISON is made with prior CT from 09/21/2018. FINDINGS: Imaging through the lung bases does show a nodular density in the left lower lobe, approximately 15 mm in size. This appears similar when compared with prior exams. No discrete liver mass is seen. The gallbladder is surgically absent. No biliary ductal dilatation is seen. The pancreas and spleen are unremarkable. No adrenal mass is identified. The left kidney is surgically absent. The right kidney is unremarkable. No calculi or hydronephrosis is seen. The aorta is non-aneurysmal. There are moderately dilated and fluid filled small bowel loops throughout the abdomen. There appear to be some smaller caliber small bowel loops more distally in the right lower quadrant. The possibility of a distal small bowel obstruction cannot be entirely excluded. Previously noted left abdominal wall incisional hernia is again seen but no definite strangulated bowel loop is identified. No free fluid or fluid collection. Bladder is decompressed. IMPRESSION: There are moderately dilated and fluid filled small bowel loops throughout the abdomen with smaller caliber small bowel loops distally suspicious for a transition. This can be seen with a small bowel obstruction. No free air, fluid collection or free fluid is identified. No other significant abnormality is detected. Dictated by: Dictated on workstation # [id number]
[2018-10-14 22:08] LABS: BASOPHILS % (AUTO) 0 % (0-10); EOSINOPHILS # (AUTO) 0.2 10^3/uL (0.0-0.3); EOSINOPHILS % (AUTO) 1 % (0-10); HEMATOCRIT 41 % (35-52); HEMOGLOBIN 13.4 G/DL (11.5-16.0); LYMPHOCYTES # (AUTO) 1.3 X 10^3 (1.0-4.0); LYMPHOCYTES % (AUTO) 10 % (12-44); MEAN CORPUSCULAR HEMOGLOBIN 28 PG (25-34); MEAN CORPUSCULAR HGB CONC 33 G/DL (32-36); MEAN CORPUSCULAR VOLUME 83 FL (80-99); MEAN PLATELET VOLUME 9.7 FL (7.4-10.4); MONOCYTES # (AUTO) 0.4 X 10^3 (0.0-1.0); MONOCYTES % (AUTO) 3 % (0-12); NEUTROPHILS # (AUTO) 11.2 X 10^3 (1.8-7.8); NEUTROPHILS % (AUTO) 86 % (42-75); PLATELET COUNT 294 10^3/uL (130-400); WHITE BLOOD COUNT 13.1 10^3/uL (4.3-11.0)
[2018-10-14 22:26] LABS: ALBUMIN 4.3 GM/DL (3.2-4.5); BILIRUBIN,TOTAL 0.3 MG/DL (0.1-1.0); CALCIUM 10.5 MG/DL (8.5-10.1); CREATININE SERUM 1.07 MG/DL (0.60-1.30); POTASSIUM 4.1 MMOL/L (3.6-5.0); TOTAL PROTEIN 7.7 GM/DL (6.4-8.2)
[2018-10-14 23:25] VITALS: BP 117/73
--- NOTE | 2018-10-14 23:30 | NUR ---
JAYLYN DELGADO admitted to room 418-1, with an admitting diagnosis of ABD PAIN AND POSSIBLE SMALL BOWEL OBSTRUCTION, on 10/14/18 from ED via WC, accompanied by FATHER AND STAFF.JAYLYN DELGADO introduced to surroundings, call light, bed controls, phone, TV, temperature control, lights, meal times, smoking policy, visitor policy, side rail policy, bathrooms and showers. Patient Rights given to patient in the handbook. SANDYJAYLYN Jermaine verbalizes understanding that [facility] is not responsible for the loss or damage to any personal effects or valuables that are kept in the patients possession during their hospitalization. PLANS OF CARE DISCUSSED WITH PT AND VERBALIZES UNDERSTANDING. SANDYJAYLYN R verbalizes understanding of Interdisciplinary Patient Education. Patient and/or family were informed about the Rapid Response Team and its purpose.
--- NOTE | 2018-10-14 23:39 | NUR ---
PT REQUESTED REQUIP. STATES SHE TAKES IT EVERY NIGHT. PT IS NPO SO CALLED DR GIBBS. SHE APPROVED REQUIP 4 MG PO HS.
[2018-10-15] MEDS ORDERED: LACTATED RINGERS 1,000 ML IV ONE (00:02)
[2018-10-15] MEDS: morphine INJ 10 MG/ML 1ML (SYR OR VIAL) IV PRN ×2 (01:00→03:37)
[2018-10-15] MEDS: LACTATED RINGERS 1,000 ML IV SCH ×4 (01:00→21:44)
[2018-10-15] MEDS: ONDANSETRON 4 MG/2 ML (SDV) Z0FRAN IV PRN (03:37)
[2018-10-15 04:00] VITALS: BP 119/73
[2018-10-15 04:37] LABS: BASOPHILS % (AUTO) 0 % (0-10); EOSINOPHILS # (AUTO) 0.2 10^3/uL (0.0-0.3); EOSINOPHILS % (AUTO) 2 % (0-10); HEMATOCRIT 37 % (35-52); LYMPHOCYTES # (AUTO) 2.1 X 10^3 (1.0-4.0); LYMPHOCYTES % (AUTO) 22 % (12-44); MEAN CORPUSCULAR HEMOGLOBIN 27 PG (25-34); MEAN CORPUSCULAR HGB CONC 32 G/DL (32-36); MEAN CORPUSCULAR VOLUME 85 FL (80-99); MEAN PLATELET VOLUME 9.8 FL (7.4-10.4); MONOCYTES # (AUTO) 0.5 X 10^3 (0.0-1.0); MONOCYTES % (AUTO) 5 % (0-12); NEUTROPHILS % (AUTO) 71 % (42-75); PLATELET COUNT 270 10^3/uL (130-400); RED CELL DISTRIBUTION WIDTH 14.1 % (10.0-14.5); WHITE BLOOD COUNT 9.8 10^3/uL (4.3-11.0)
[2018-10-15 04:57] LABS: ALANINE AMINOTRANSFERASE 37 U/L (0-55); ALBUMIN 3.8 GM/DL (3.2-4.5); ALKALINE PHOSPHATASE 55 U/L (40-136); BILIRUBIN,TOTAL 0.3 MG/DL (0.1-1.0); BUN/CREATININE RATIO 19; CALCIUM 9.4 MG/DL (8.5-10.1); CARBON DIOXIDE 21 MMOL/L (21-32); CHLORIDE 109 MMOL/L (98-107); CREATININE SERUM 0.91 MG/DL (0.60-1.30); GFR ESTIMATED > 60; GLUCOSE 98 MG/DL (70-105); POTASSIUM 3.9 MMOL/L (3.6-5.0); SODIUM 143 MMOL/L (135-145); TOTAL PROTEIN 6.9 GM/DL (6.4-8.2)
[2018-10-15 05:06] VITALS: BP 119/73
--- NOTE | 2018-10-15 06:03 | Diagnostic Imaging Report ---
INDICATION: 33-year-old female NG tube placement, evaluate tip position. COMPARISON: 09/20/2018. FINDINGS: Single view of the chest shows the cardiac contour to be within normal limits. There are scattered alveolar infiltrates but no confluent consolidations. There is an NG tube with the tip projected over the gastric body. Soft tissues and bony thorax are unchanged. IMPRESSION: 1. NG tube tip is projected over the gastric body. 2. Scattered alveolar infiltrates noted. Dictated by: Dictated on workstation # [id number]
[2018-10-15 08:51] VITALS: BP 125/79
[2018-10-15] MEDS ORDERED: OMEP40CA36 PO (09:12)
[2018-10-15] MEDS ORDERED: ESTR1TAB24 PO (09:12)
[2018-10-15] MEDS ORDERED: PHEN-483 PO (09:12)
--- NOTE | 2018-10-15 09:13 | NUR ---
WENT OVER THE EXT MED HX WITH THE PATIENT AND SHE VERIFIED HOW SHE TAKES EACH MEDICATION.
[2018-10-15] MEDS: PANTOPRAZOLE 40 MG (PROTONIX) VIAL IV SCH (09:21)
--- NOTE | 2018-10-15 10:00 | Consultation (Surgery) ---
History of Present Illness History of Present Illness Patient Consulted On(tamiko/time) 10/15/18 09:52 Date Seen by Provider: October 15, 2018 Time Seen by Provider: 09:52 Reason for Visit: Abdominal pain with possible small bowel obstruction History of Present Illness Consult requested by Dr. Whittington Patient is a 33 year old female admitted on 10/14 for abdominal pain with possible small bowel obstruction. She reports having developing a "hunger type" abominal pain yesterday that is diffuse with no radiation to her back. She rated the pain at a 10 and says that it was associated with nausea and vomiting. Today her pain has returned to baseline at a 6 and she has not had any more emesis She cannot identify anything that makes it better or worse. She reports having a very small bowel movement yesterday but has not had a bowel movement today. The patient recently underwent a colonoscopy for evaluation of blood in her stool. Allergies and Home Medications Allergies Coded Allergies: fentanyl (Verified Allergy, Unknown, 08/25/18) meperidine (Verified Allergy, Unknown, 08/25/18) penicillin G (Verified Allergy, Unknown, 08/25/18) vancomycin (Unverified Adverse Reaction, Intermediate, severe itching, 05/05) Home Medications Cyanocobalamin 1,000 Mcg/Ml Inj, 1,000 MCG IJ MONTHLY, (Reported) Estradiol 1 Mg Tablet, 1 MG PO HS, (Reported) Metoprolol Succinate 25 Mg Tab.er.24h, 25 MG PO HS, (Reported) Omeprazole 40 Mg Capsule.dr, 40 MG PO DAILY, (Reported) Ondansetron 8 Mg Tab.rapdis, 8 MG PO BID PRN for NAUSEA/VOMITING-1ST LINE, ( Reported) Phentermine HCl 37.5 Mg Capsule, 37.5 MG PO DAILY, (Reported) Ropinirole HCl 4 Mg Tablet, 4 MG PO HS, (Reported) Sertraline HCl 50 Mg Tablet, 50 MG PO HS, (Reported) Tizanidine HCl 4 Mg Tablet, 4 MG PO TID PRN for MUSCLE SPASMS, (Reported) Patient Home Medication List Home Medication List Reviewed: Yes Past Wbfmxgd-Ffjygt-Witknf Hx Patient Social History Alcohol Use: Denies Use Recreational Drug Use: No Smoking Status: Current Everyday Smoker Type Used: Cigarettes 2nd Hand Smoke Exposure: No Recent Foreign Travel: No Contact w/Someone Who Travel: No Recent Infectious Disease Expo: No Recent Hopitalizations: No Immunizations Up To Date Tetanus Booster (TDap): Unknown PED Vaccines UTD: No Date of Pneumonia Vaccine: May 17, 2012 Date of Influenza Vaccine: Jul 03, 2012 Seasonal Allergies Seasonal Allergies: Yes (MILD) Surgeries History of Surgeries: Yes Surgeries: Abdominal, Adenoidectomy, Appendectomy, Gallbladder, 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, Nephrectomy, Orthopedic, Tonsillectomy Respiratory History of Respiratory Disorde: Yes Respiratory Disorders: Asthma Cardiovascular History of Cardiac Disorders: Yes Cardiac Disorders: Hypertension Neurological History of Neurological Disord: Yes (RESTLESS LEG SYNDROME) Neurological Disorders: Headaches /Migraines 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 System Hx 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: No (HX ENDOMETRIOSIS ) Sexually Transmitted Disease: No HIV/AIDS: No 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 Genitourinary History of Genitourinary Disor: Yes (L KIDNEY REMOVED FOR TUMOR-MALIGNANT;) Genitourinary Disorders: UTI-Chronic Gastrointestinal History of Gastrointestinal Di: Yes Gastrointestinal Disorders: Abdominal Hernia, Liver Disease/Jaundice, Pancreatitis, Polyps Musculoskeletal History of Musculoskeletal Dis: Yes (COCCYX-REPAIRED, ) Musculoskeletal Disorders: Chronic Back Pain Endocrine History of Endocrine Disorders: Yes (CHRONIC PANCREATITIS; OBESITY) HEENT History of HEENT Disorders: No Loss of Vision: Denies Hearing Impairment: Denies Cancer History of Cancer: Yes Cancer: Kidney Psychosocial History of Psychiatric Problem: Yes Behavioral Health Disorders: Anxiety, Depression Integumentary History of Skin or Integumenta: No Skin/Integumentary Disorders: Herpes Blood Transfusions History of Blood Disorders: No Adverse Reaction to a Blood Tr: No (N/A) Reviewed Nursing Assessment Reviewed/Agree w Nursing PMH: Yes Family Medical History Significant Family History: No Pertinent Family Hx, Cancer, Diabetes, Hypertension Family Medial History: Cardiovascular disease 19 FATHER Completed stroke 19 FATHER Diabetes mellitus 19 FATHER Hypercholesterolemia 19 FATHER 19 MOTHER Hypertension 19 FATHER 19 MOTHER Neoplasm 19 MOTHER Psychosocial problem 19 FATHER 19 MOTHER Review of Systems-General Gastrointestinal: RUQ, LUQ, RLQ, LLQ, no symptoms reported, see HPI, abdominal pain, constipation, diarrhea, dysphagia, hematemesis, heartburn, jaundice, loss of appetite, melena, nausea, vomiting, other Physical Exam-General Problems Physical Exam Vital Signs Vital Signs - First Documented 10/14/18 10/15/18 22:53 06:34 Temp 98.2 Pulse 97 Resp 20 B/P (MAP) 140/97 (111) Pulse Ox 93 O2 Delivery Room Air O2 Flow Rate 2.00 Capillary Refill : Less Than 3 SecondsLess Than 3 Seconds General Appearance: no apparent distress Eyes: Bilateral Eye Normal Inspection, Bilateral Eye EOMI HEENT: PERRL/EOMI, normal ENT inspection Neck: non-tender, full range of motion, supple, normal inspection Respiratory: chest non-tender, no respiratory distress, no accessory muscle use Cardiovascular: regular rate, rhythm Gastrointestinal: non tender, soft Rectal: deferred Back: normal inspection Extremities: normal range of motion, non-tender, normal inspection 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 tested, no motor/sensory deficits, alert, normal mood/affect Skin: normal color Lymphatic: no adenopathy Data Review Labs Laboratory Tests 10/14/18 22:07: White Blood Count 13.1H, Red Blood Count 4.87, Hemoglobin 13.4, Hematocrit 41, Mean Corpuscular Volume 83, Mean Corpuscular Hemoglobin 28, Mean Corpuscular Hemoglobin Concent 33, Red Cell Distribution Width 14.0, Platelet Count 294, Mean Platelet Volume 9.7, Neutrophils (%) (Auto) 86H, Lymphocytes (%) (Auto) 10L , Monocytes (%) (Auto) 3, Eosinophils (%) (Auto) 1, Basophils (%) (Auto) 0, Neutrophils # (Auto) 11.2H, Lymphocytes # (Auto) 1.3, Monocytes # (Auto) 0.4, Eosinophils # (Auto) 0.2, Basophils # (Auto) 0.0, Sodium Level 142, Potassium Level 4.1, Chloride Level 106, Carbon Dioxide Level 20L, Anion Gap 16H, Blood Urea Nitrogen 16, Creatinine 1.07, Estimat Glomerular Filtration Rate 59, BUN/ Creatinine Ratio 15, Glucose Level 120H, Calcium Level 10.5H, Corrected Calcium 10.3H, Total Bilirubin 0.3, Aspartate Amino Transf (AST/SGOT) 66H, Alanine Aminotransferase (ALT/SGPT) 43, Alkaline Phosphatase 64, Total Protein 7.7, Albumin 4.3 10/15/18 04:10: White Blood Count 9.8, Red Blood Count 4.40, Hemoglobin 12.0, Hematocrit 37, Mean Corpuscular Volume 85, Mean Corpuscular Hemoglobin 27, Mean Corpuscular Hemoglobin Concent 32, Red Cell Distribution Width 14.1, Platelet Count 270, Mean Platelet Volume 9.8, Neutrophils (%) (Auto) 71, Lymphocytes (%) (Auto) 22, Monocytes (%) (Auto) 5, Eosinophils (%) (Auto) 2, Basophils (%) (Auto) 0, Neutrophils # (Auto) 7.0, Lymphocytes # (Auto) 2.1, Monocytes # (Auto) 0.5, Eosinophils # (Auto) 0.2, Basophils # (Auto) 0.0, Sodium Level 143, Potassium Level 3.9, Chloride Level 109H, Carbon Dioxide Level 21, Anion Gap 13, Blood Urea Nitrogen 17, Creatinine 0.91, Estimat Glomerular Filtration Rate > 60, BUN/ Creatinine Ratio 19, Glucose Level 98, Calcium Level 9.4, Corrected Calcium 9.6 , Total Bilirubin 0.3, Aspartate Amino Transf (AST/SGOT) 52H, Alanine Aminotransferase (ALT/SGPT) 37, Alkaline Phosphatase 55, Total Protein 6.9, Albumin 3.8 Assessment/Plan Assessment/Plan Admission Diagonsis Abdominal pain with possible small bowel obstruction Assessment/Plan Abdominal pain Constipation Nausea/Vomiting Initial CT is suspicious for a small bowel obstruction. Would recommend a small bowel follow through for further workup of possible obstruction. Clinical Quality Measures DVT/VTE Risk/Contraindication: Risk Factor Score Per Nursin RFS Level Per Nursing on Admit: 2=Moderate HAFSA MURDOCK DO October 15, 2018 10:00
[2018-10-15] MEDS ORDERED: DIATRIZOATE MEGLUM/SODIUM 37% 120 ML (GASTROGRAFIN) NG ONE (11:15)
[2018-10-15 13:36] VITALS: BP 149/73
--- NOTE | 2018-10-15 13:39 | History & Physicial (CHS) ---
HPI Attending Physician Carmen Whittington MD PCP Carmen Whittington MD Consult Date of Admission October 15, 2018 at 11:03 Home Medications Home Medications Reviewed patient Home Medication Reconciliation performed by pharmacy medication reconciliations boiler control technician and/or nursing. Patients Allergies have been reviewed. Allergies Coded Allergies: fentanyl (Verified Allergy, Unknown, 08/25/18) meperidine (Verified Allergy, Unknown, 08/25/18) penicillin G (Verified Allergy, Unknown, 08/25/18) vancomycin (Unverified Adverse Reaction, Intermediate, severe itching, 05/05) UDM-Gejqjn-Mwutmd Hx Patient Social History Alcohol Use: Denies Use Recreational Drug Use: No Smoking Status: Current Everyday Smoker Type Used: Cigarettes 2nd Hand Smoke Exposure: No Recent Foreign Travel: No Contact w/other who traveled: No Recent Hopitalizations: No Recent Infectious Disease Expo: No Immunizations Up To Date Tetanus Booster (TDap): Unknown Date of Pneumonia Vaccine: May 17, 2012 Date of Influenza Vaccine: Jul 03, 2012 Past Medical History PMHx: Chronic pancreatitis Chronic tension headache Chronic pancreatitis Asthma PTSD Trichotillomania Restless leg syndrome Renal cell carcinoma s/p left nephrectomy Chronic fatigue SurgHx: Left nephrectomy Knee arthroscopy x 2 Coccyx surgery Tonsillectomy and adenoidectomy Appendectomy 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 Cholecystectomy Hernia repair Family Medical History Significant Family History: No Pertinent Family Hx, Cancer, Diabetes, Hypertension Family History: Cardiovascular disease 19 FATHER Completed stroke 19 FATHER Diabetes mellitus 19 FATHER Hypercholesterolemia 19 FATHER 19 MOTHER Hypertension 19 FATHER 19 MOTHER Neoplasm 19 MOTHER Psychosocial problem 19 FATHER 19 MOTHER Physical Exam-([facility]) Physical Exam Vital Signs VS - Last 72 Hours, by Label 10/14/18 10/14/18 10/14/18 10/14/18 20:33 22:53 23:25 23:25 Temp 98.2 97.2 97.2 Pulse 97 91 91 Resp 20 18 18 B/P (MAP) 140/97 (111) 117/73 117/73 (88) Pulse Ox 93 95 95 O2 Delivery Room Air Room Air Room Air 10/14/18 10/15/18 10/15/18 10/15/18 23:30 01:06 04:00 05:06 Temp 97.2 97.2 Pulse 90 90 Resp 14 14 B/P (MAP) 119/73 (88) 119/73 (88) Pulse Ox 88 99 99 O2 Delivery Room Air Room Air Room Air Room Air 10/15/18 10/15/18 10/15/18 10/15/18 06:34 08:00 08:51 13:36 Temp 97.4 97.1 Pulse 83 65 Resp 16 18 B/P (MAP) 125/79 (94) 149/73 (98) Pulse Ox 98 93 98 100 O2 Delivery Nasal Cannula Nasal Cannula Room Air Room Air O2 Flow Rate 2.00 2.00 10/15/18 10/15/18 10/15/18 15:13 15:41 19:11 Temp 99.2 99.2 Pulse 77 63 Resp 20 16 B/P (MAP) 138/77 (97) 141/71 (94) Pulse Ox 92 93 100 O2 Delivery Room Air Room Air Nasal Cannula O2 Flow Rate 1.00 Capillary Refill : Less Than 3 SecondsLess Than 3 Seconds Clinical Quality Measures DVT/VTE Risk/Contraindication: Risk Factor Score Per Nursin RFS Level Per Nursing on Admit: 2=Moderate CARMEN WHITTINGTON MD October 15, 2018 13:39
[2018-10-15] MEDS ORDERED: ENOXAPARIN 40 MG/0.4 ML (LOVENOX) SYR SC SCH (14:00)
[2018-10-15] MEDS: PROMETHAZINE INJ 25 MG/ML (PHENERGAN) AMP IV PRN (14:09)
[2018-10-15] MEDS: KETOROLAC 15 MG/ML VIAL IVP PRN (14:11)
[2018-10-15 15:41] VITALS: BP 138/77
--- NOTE | 2018-10-15 16:48 | NUR ---
DR. MURDOCK CONTACTED AND UPDATED ON PT PROCEDURE AND CONDITION. NEW ORDER TO REMOVE NG TUBE AND START CLEAR LIQUID DIET ONCE PT IS PASSING GAS OR HAVING BOWL MOVEMENTS. Addendum: 10/16/18 at 0752 by EMILIO GUEVARA RN BOWEL MOVEMENTS*
--- NOTE | 2018-10-15 17:40 | Diagnostic Imaging Report ---
EXAMINATION: Small bowel follow-through. INDICATION: Abdominal pain. Evaluate for small bowel obstruction. COMPARISON: Comparison is made with a CT study from October 14, 2018. FINDINGS: Initial anesthesiologist and critical care radiographs demonstrate an indwelling enteric tube within the stomach. There are surgical clips in the right upper quadrant from prior cholecystectomy and a small surgical clip projecting adjacent to the right kidney. There are some right lower quadrant calcifications. Gastrografin contrast was then infused through the patient's indwelling NG tube, and multiple overhead images were acquired. The stomach appears appropriate without distention or abnormal gastric mucosal thickening. The duodenal sweep is unremarkable. Proximal loops of jejunum demonstrate no mucosal thickening or significant dilation. At one hour, there are findings of contrast within more distal loops of small bowel which appear to reflect ileum that are of diminished prominence compared to the previous comparison CT. No bowel loop displacement or significant small bowel mucosal thickening is evident. Contrast is visualized within the right colon and transverse colon at three hours. IMPRESSION: 1. Interval reduction in prior dilation of the small bowel compared to the previous CT examination. There is no significant small bowel mucosal thickening or displacement of small bowel loops. There is however a delay in the small bowel transit time which is between one and three hours. There is no high-grade small bowel obstruction. Dictated by: Dictated on workstation # [id number]
[2018-10-15 19:11] VITALS: BP 141/71
--- NOTE | 2018-10-15 19:59 | History & Physicial (CHS) ---
HPI History of Present Illness: 33 yo female with chronic abdominal pain, had worsening pain in last 2 days. Had small BM yesterday, none today. Has been vomiting. No gas today. She has history of hernia repair with recurrent infectious complications which are now resolved and was planning another surgery next week. Denies fevers, but felt chilled last night. Source: patient Date seen by provider: October 15, 2018 Time Seen by Provider: 17:45 Attending Physician Carmen Whittington MD PCP Carmen Whittington MD Consult Date of Admission October 15, 2018 at 11:03 Home Medications Home Medications Reviewed patient Home Medication Reconciliation performed by pharmacy medication reconciliations it support technician and/or nursing. Patients Allergies have been reviewed. Allergies Coded Allergies: fentanyl (Verified Allergy, Unknown, 08/25/18) meperidine (Verified Allergy, Unknown, 08/25/18) penicillin G (Verified Allergy, Unknown, 08/25/18) vancomycin (Unverified Adverse Reaction, Intermediate, severe itching, 05/05) EPV-Efuqik-Xeywmk Hx Patient Social History Alcohol Use: Denies Use Recreational Drug Use: No Smoking Status: Current Everyday Smoker Type Used: Cigarettes 2nd Hand Smoke Exposure: No Recent Foreign Travel: No Contact w/other who traveled: No Recent Hopitalizations: No Recent Infectious Disease Expo: No Immunizations Up To Date Tetanus Booster (TDap): Unknown Date of Pneumonia Vaccine: May 17, 2012 Date of Influenza Vaccine: Jul 03, 2012 Past Medical History PMHx: Chronic pancreatitis Chronic tension headache Asthma PTSD Trichotillomania Restless leg syndrome Renal cell carcinoma s/p left nephrectomy Chronic fatigue SurgHx: Left nephrectomy Knee arthroscopy x 2 Coccyx surgery Tonsillectomy and adenoidectomy Appendectomy 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 Cholecystectomy Hernia repair Family Medical History Significant Family History: No Pertinent Family Hx, Cancer, Diabetes, Hypertension Family History: Cardiovascular disease 19 FATHER Completed stroke 19 FATHER Diabetes mellitus 19 FATHER Hypercholesterolemia 19 FATHER 19 MOTHER Hypertension 19 FATHER 19 MOTHER Neoplasm 19 MOTHER Psychosocial problem 19 FATHER 19 MOTHER Review of Systems ([facility]) Constitutional: see HPI EENTM: No nose congestion Respiratory: No short of breath Cardiovascular: No chest pain Gastrointestinal: see HPI Genitourinary: No dysuria Skin: No rash Psychiatric/Neurological: No Symptoms Reported Reviewed Test Results Reviewed Test Results Lab Laboratory Tests Test 10/14/18 22:07 10/15/18 04:10 Range/Units White Blood Count 13.1 H 9.8 4.3-11.0 10^3/uL Red Blood Count 4.87 4.40 4.35-5.85 10^6/uL Hemoglobin 13.4 12.0 11.5-16.0 G/DL Hematocrit 41 37 35-52 % Mean Corpuscular Volume 83 85 80-99 FL Mean Corpuscular Hemoglobin 28 27 25-34 PG Mean Corpuscular Hemoglobin Concent 33 32 32-36 G/DL Red Cell Distribution Width 14.0 14.1 10.0-14.5 % Platelet Count 294 270 130-400 10^3/uL Mean Platelet Volume 9.7 9.8 7.4-10.4 FL Neutrophils (%) (Auto) 86 H 71 42-75 % Lymphocytes (%) (Auto) 10 L 22 12-44 % Monocytes (%) (Auto) 3 5 0-12 % Eosinophils (%) (Auto) 1 2 0-10 % Basophils (%) (Auto) 0 0 0-10 % Neutrophils # (Auto) 11.2 H 7.0 1.8-7.8 X 10^3 Lymphocytes # (Auto) 1.3 2.1 1.0-4.0 X 10^3 Monocytes # (Auto) 0.4 0.5 0.0-1.0 X 10^3 Eosinophils # (Auto) 0.2 0.2 0.0-0.3 10^3/uL Basophils # (Auto) 0.0 0.0 0.0-0.1 10^3/uL Sodium Level 142 143 135-145 MMOL/L Potassium Level 4.1 3.9 3.6-5.0 MMOL/L Chloride Level 106 109 H 98-107 MMOL/L Carbon Dioxide Level 20 L 21 21-32 MMOL/L Anion Gap 16 H 13 5-14 MMOL/L Blood Urea Nitrogen 16 17 7-18 MG/DL Creatinine 1.07 0.91 0.60-1.30 MG/DL Estimat Glomerular Filtration Rate 59 > 60 BUN/Creatinine Ratio 15 19 Glucose Level 120 H 98 70-105 MG/DL Calcium Level 10.5 H 9.4 8.5-10.1 MG/DL Corrected Calcium 10.3 H 9.6 8.5-10.1 MG/DL Total Bilirubin 0.3 0.3 0.1-1.0 MG/DL Aspartate Amino Transf (AST/SGOT) 66 H 52 H 5-34 U/L Alanine Aminotransferase (ALT/SGPT) 43 37 0-55 U/L Alkaline Phosphatase 64 55 40-136 U/L Total Protein 7.7 6.9 6.4-8.2 GM/DL Albumin 4.3 3.8 3.2-4.5 GM/DL Radiology CT abd/pelvis 10/14: IMPRESSION: There are moderately dilated and fluid filled small bowel loops throughout the abdomen with smaller caliber small bowel loops distally suspicious for a transition. This can be seen with a small bowel obstruction. No free air, fluid collection or free fluid is identified. No other significant abnormality is detected. Physical Exam-([facility]) Physical Exam Vital Signs VS - Last 72 Hours, by Label 10/14/18 10/14/18 10/14/18 10/14/18 20:33 22:53 23:25 23:25 Temp 98.2 97.2 97.2 Pulse 97 91 91 Resp 20 18 18 B/P (MAP) 140/97 (111) 117/73 117/73 (88) Pulse Ox 93 95 95 O2 Delivery Room Air Room Air Room Air 10/14/18 10/15/18 10/15/18 10/15/18 23:30 01:06 04:00 05:06 Temp 97.2 97.2 Pulse 90 90 Resp 14 14 B/P (MAP) 119/73 (88) 119/73 (88) Pulse Ox 88 99 99 O2 Delivery Room Air Room Air Room Air Room Air 10/15/18 10/15/18 10/15/18 10/15/18 06:34 08:00 08:51 13:36 Temp 97.4 97.1 Pulse 83 65 Resp 16 18 B/P (MAP) 125/79 (94) 149/73 (98) Pulse Ox 98 93 98 100 O2 Delivery Nasal Cannula Nasal Cannula Room Air Room Air O2 Flow Rate 2.00 2.00 10/15/18 10/15/18 10/15/18 15:13 15:41 19:11 Temp 99.2 99.2 Pulse 77 63 Resp 20 16 B/P (MAP) 138/77 (97) 141/71 (94) Pulse Ox 92 93 100 O2 Delivery Room Air Room Air Nasal Cannula O2 Flow Rate 1.00 Capillary Refill : Less Than 3 SecondsLess Than 3 Seconds General Appearance: no apparent distress Respiratory: No accessory muscle use Gastrointestinal: soft, tenderness (mild LUQ and LLQ) Extremities: no pedal edema Neurologic/Psychiatric: other (drowsy but arousable) Skin: normal color, warm/dry Assessment/Plan Assessment/Plan Admission Status: Inpatient Order (span 2 midnights) Reason for Inpatient Admission: SBO requiring NG and NPO status, anticipate 2 nights for resolution (1) Small bowel obstruction, partial Status: Acute Assessment & Plan: Surgery consulted, appreciate recommendations. Small bowel follow through pending. NPO. (2) Nausea & vomiting Status: Chronic Assessment & Plan: Has had chronic issues with nausea and vomiting, however does appear to have partial SBO at this time. Anti-emetics and IVF. (3) Abdominal pain Status: Chronic Assessment & Plan: Has had difficulties with chronic abdominal pain, however has acute worsening with suspected partial SBO. Minimize opiates to encourage continued bowel motility. (4) DVT prophylaxis Status: Acute Assessment & Plan: Enoxaparin Clinical Quality Measures DVT/VTE Risk/Contraindication: Risk Factor Score Per Nursin RFS Level Per Nursing on Admit: 2=Moderate CARMEN WHITTINGTON MD October 15, 2018 19:59
[2018-10-15] MEDS ORDERED: rOPINIRole 5 MG TAB (REQUIP) PO SCH (21:00)
[2018-10-15] MEDS ORDERED: rOPINIRole 1 MG (REQUIP) TABLET PO SCH (21:00)
--- NOTE | 2018-10-15 21:00 | NUR ---
During bedside report off-going nurse reported a verbal order from Dr Sanchez that if patient is passing gas and/or has a BM the NG tube could be D/C'd and patient could have clear liquids. Patient did report passing gas and requested NG tube be removed. NG removed at this time. Patient is drinking clear liquids and denies pain or nausea. Will monitor.
[2018-10-16 00:04] VITALS: BP 125/85
[2018-10-16] MEDS: ONDANSETRON 4 MG/2 ML (SDV) Z0FRAN IV PRN (00:11)
[2018-10-16 04:38] VITALS: BP 118/78
[2018-10-16] MEDS: LACTATED RINGERS 1,000 ML IV SCH (05:03)
[2018-10-16] MEDS: KETOROLAC 15 MG/ML VIAL IVP PRN ×2 (05:39→14:13)
[2018-10-16 06:15] LABS: HEMOGLOBIN 10.9 G/DL (11.5-16.0); MEAN PLATELET VOLUME 9.3 FL (7.4-10.4); RED CELL DISTRIBUTION WIDTH 14.2 % (10.0-14.5); WHITE BLOOD COUNT 6.3 10^3/uL (4.3-11.0)
[2018-10-16 06:33] LABS: ALANINE AMINOTRANSFERASE 43 U/L (0-55); ALBUMIN 3.4 GM/DL (3.2-4.5); ALKALINE PHOSPHATASE 51 U/L (40-136); BILIRUBIN,TOTAL 0.3 MG/DL (0.1-1.0); BUN/CREATININE RATIO 14; CALCIUM 8.6 MG/DL (8.5-10.1); CARBON DIOXIDE 23 MMOL/L (21-32); CHLORIDE 107 MMOL/L (98-107); CREATININE SERUM 0.86 MG/DL (0.60-1.30); GFR ESTIMATED > 60; GLUCOSE 84 MG/DL (70-105); POTASSIUM 3.8 MMOL/L (3.6-5.0); SODIUM 143 MMOL/L (135-145); TOTAL PROTEIN 6.2 GM/DL (6.4-8.2)
[2018-10-16 08:00] VITALS: BP 109/58
[2018-10-16] MEDS: PROMETHAZINE INJ 25 MG/ML (PHENERGAN) AMP IV PRN ×2 (10:21→14:13)
[2018-10-16] MEDS: PANTOPRAZOLE 40 MG (PROTONIX) VIAL IV SCH (10:21)
--- NOTE | 2018-10-16 10:52 | Discharge Instructions ---
Discharge [facility] Discharge Medications Continued Medications: Cyanocobalamin (Cyanocobalamin Injection) 1,000 Mcg/Ml Inj 1000 MCG IJ MONTHLY, VIAL Estradiol (Estradiol Tablet) 1 Mg Tablet 1 MG PO HS, TAB Metoprolol Succinate (Metoprolol Succinate) 25 Mg Tab.er.24h 25 MG PO HS, TAB Omeprazole (Omeprazole) 40 Mg Capsule.dr 40 MG PO DAILY, CAP Ondansetron (Ondansetron Odt) 8 Mg Tab.rapdis 8 MG PO BID PRN for NAUSEA/VOMITING-1ST LINE, TAB Ropinirole HCl (Ropinirole HCl) 4 Mg Tablet 4 MG PO HS, TAB Sertraline HCl (Sertraline HCl) 50 Mg Tablet 50 MG PO HS Tizanidine HCl (Tizanidine HCl) 4 Mg Tablet 4 MG PO TID PRN for MUSCLE SPASMS Discontinued Medications: Phentermine HCl (Phentermine HCl) 37.5 Mg Capsule 37.5 MG PO DAILY, CAP Patient Instructions Goal/Follow Up Appt: Follow up with Dr. Whittington on 10/21 at 1020 am. Follow up with Dr. Roman as scheduled. [facility] to [facility] For: Inability to keep down liquids Activity & Diet Discharge Diet: Eat Small Frequent Meals, Semi-Solid Diet Activity as Tolerated: Yes Copy Copies To 1: CARMEN WHITTINGTON MD, BETHANY N MD October 16, 2018 10:52
--- NOTE | 2018-10-16 10:53 | Discharge Summary ---
Diagnosis/Chief Complaint Date of Admission October 15, 2018 at 11:03 Date of Discharge October 16, 2018 Admission Diagnosis Admission Diagnosis Partial small bowel obstruction Discharge Diagnosis See problem list Problems/Diagnosis: (1) Small bowel obstruction, partial Assessment & Plan: Surgery consulted, appreciate recommendations. Small bowel follow through next day showed iprovement, she was having BM and requesting diet , tolerated diet and had BM. Status: Acute (2) Nausea & vomiting Assessment & Plan: Has had chronic issues with nausea and vomiting. Anti- emetics and IVF. Status: Chronic (3) Abdominal pain Assessment & Plan: Has had difficulties with chronic abdominal pain. Minimize opiates to encourage continued bowel motility. Status: Chronic Chief Complaint/HPI Chief Complaint/HPI 33 yo female with chronic abdominal pain, had worsening pain in last 2 days. Had small BM yesterday, none today. Has been vomiting. No gas today. She has history of hernia repair with recurrent infectious complications which are now resolved and was planning another surgery next week. Denies fevers, but felt chilled last night. Discharge Summary-Simple/Stand Consultations Discharge Physical Examination Allergies: Coded Allergies: fentanyl (Verified Allergy, Unknown, 10/16/18) meperidine (Verified Allergy, Unknown, 10/16/18) penicillin G (Verified Allergy, Unknown, 10/16/18) vancomycin (Unverified Adverse Reaction, Intermediate, severe itching, 10/16) Vitals & I&Os Vital Sign - Last 12Hours Date Time Temp Pulse Resp B/P (MAP) Pulse Ox O2 Delivery O2 Flow Rate FiO2 10/16/18 08:00 97.1 85 18 109/58 (75) 97 Nasal Cannula 1.00 Intake and Output 10/16/18 00:00 Intake Total 360 ml Output Total 950 ml Balance -590 ml General Appearance: Alert, No Acute Distress Respiratory: Clear to Auscultation, Normal Air Movement Cardiovascular: Regular Rate, No Murmurs Abdominal: Normal Bowel Sounds, Soft Neuro: Normal Speech Psych/Mental Status: Mental Status NL Hospital Course See final discharge diagnosis. Labs Laboratory Tests Test 10/16/18 05:20 Range/Units White Blood Count 6.3 4.3-11.0 10^3/uL Red Blood Count 3.95 L 4.35-5.85 10^6/uL Hemoglobin 10.9 L 11.5-16.0 G/DL Hematocrit 34 L 35-52 % Mean Corpuscular Volume 87 80-99 FL Mean Corpuscular Hemoglobin 28 25-34 PG Mean Corpuscular Hemoglobin Concent 32 32-36 G/DL Red Cell Distribution Width 14.2 10.0-14.5 % Platelet Count 241 130-400 10^3/uL Mean Platelet Volume 9.3 7.4-10.4 FL Sodium Level 143 135-145 MMOL/L Potassium Level 3.8 3.6-5.0 MMOL/L Chloride Level 107 98-107 MMOL/L Carbon Dioxide Level 23 21-32 MMOL/L Anion Gap 13 5-14 MMOL/L Blood Urea Nitrogen 12 7-18 MG/DL Creatinine 0.86 0.60-1.30 MG/DL Estimat Glomerular Filtration Rate > 60 BUN/Creatinine Ratio 14 Glucose Level 84 70-105 MG/DL Calcium Level 8.6 8.5-10.1 MG/DL Corrected Calcium 9.1 8.5-10.1 MG/DL Total Bilirubin 0.3 0.1-1.0 MG/DL Aspartate Amino Transf (AST/SGOT) 73 H 5-34 U/L Alanine Aminotransferase (ALT/SGPT) 43 0-55 U/L Alkaline Phosphatase 51 40-136 U/L Total Protein 6.2 L 6.4-8.2 GM/DL Albumin 3.4 3.2-4.5 GM/DL Radiology Reviewed CT abd/pelvis 10/14: IMPRESSION: There are moderately dilated and fluid filled small bowel loops throughout the abdomen with smaller caliber small bowel loops distally suspicious for a transition. This can be seen with a small bowel obstruction. No free air, fluid collection or free fluid is identified. No other significant abnormality is detected. Discharge Instructions to patient/family Please see electronic discharge instructions given to patient. Discharge Medications Reviewed and agree with Discharge Medication list on patient's Discharge Instruction sheet Clinical Quality Measures DVT/VTE Risk/Contraindication: Risk Factor Score Per Nursin RFS Level Per Nursing on Admit: 2=Moderate Copy Copies To 1: CARMEN GIBBS MD, BETHANY N MD October 16, 2018 10:53
--- NOTE | 2018-10-16 11:24 | Progress Note ---
Subjective Date Seen by a Provider: October 16, 2018 Time Seen by a Provider: 11:20 Subjective/Events-last exam Patient feeling better today. Having bowel movements and passing flatus. No nausea or emesis at this time. Denies fever sweats chills shortness of breath or chest pain. Objective Exam Vital Signs Date Time Temp Pulse Resp B/P (MAP) Pulse Ox O2 Delivery O2 Flow Rate FiO2 10/16/18 10:49 97 Room Air 10/16/18 08:00 97.1 85 18 109/58 (75) 97 Nasal Cannula 1.00 10/16/18 06:26 96 Nasal Cannula 1.00 10/16/18 04:38 99.6 81 18 118/78 (91) 97 Nasal Cannula 1.00 10/16/18 02:54 97 Nasal Cannula 1.00 10/16/18 00:04 98.5 74 17 125/85 (98) 95 Nasal Cannula 1.00 10/15/18 22:42 95 Nasal Cannula 1.00 10/15/18 20:55 99 Nasal Cannula 1.00 10/15/18 19:11 99.2 63 16 141/71 (94) 100 Nasal Cannula 1.00 10/15/18 19:07 94 Nasal Cannula 1.00 10/15/18 15:41 99.2 77 20 138/77 (97) 93 Room Air 10/15/18 15:13 92 Room Air 10/15/18 13:36 97.1 65 18 149/73 (98) 100 Room Air I & O 10/16/18 07:00 Intake Total 1410 ml Output Total 950 ml Balance 460 ml Capillary Refill : Less Than 3 SecondsLess Than 3 Seconds General Appearance: No Apparent Distress HEENT: PERRL/EOMI Neck: Normal Inspection, Non Tender Respiratory: Chest Non Tender, No Accessory Muscle Use, No Respiratory Distress Cardiovascular: Regular Rate, Rhythm Gastrointestinal: non tender, soft, no organomegaly Extremity: Normal Inspection, Non Tender Neurologic/Psychiatric: Alert, Oriented x3 Skin: Normal Color, Warm/Dry Lymphatic: No Adenopathy Results Lab Laboratory Tests 10/16/18 05:20: White Blood Count 6.3, Red Blood Count 3.95L, Hemoglobin 10.9L, Hematocrit 34L, Mean Corpuscular Volume 87, Mean Corpuscular Hemoglobin 28, Mean Corpuscular Hemoglobin Concent 32, Red Cell Distribution Width 14.2, Platelet Count 241, Mean Platelet Volume 9.3, Sodium Level 143, Potassium Level 3.8, Chloride Level 107, Carbon Dioxide Level 23, Anion Gap 13, Blood Urea Nitrogen 12, Creatinine 0.86, Estimat Glomerular Filtration Rate > 60, BUN/Creatinine Ratio 14, Glucose Level 84, Calcium Level 8.6, Corrected Calcium 9.1, Total Bilirubin 0.3, Aspartate Amino Transf (AST/SGOT) 73H, Alanine Aminotransferase (ALT/SGPT) 43, Alkaline Phosphatase 51, Total Protein 6.2L, Albumin 3.4 Assessment/Plan Assessment/Plan Assessment/Plan PSBO-resolved Abdominal pain-resolved Constipation Nausea/Vomiting Patient doing well. Small bowel follow through no evidence of bowel obstruction but slightly delayed transit. No issues at this time. Planning on surgery Wed for hernia. Patient tolerating clears. Discussed slowly advancing diet as tolerates and she understands. Okay to dc home. Clinical Quality Measures DVT/VTE Risk/Contraindication: Risk Factor Score Per Nursin RFS Level Per Nursing on Admit: 2=Moderate HAFSA MURDOCK DO October 16, 2018 11:24
[2018-10-16 12:00] VITALS: BP 150/88
--- NOTE | 2018-10-16 12:02 | NUR ---
Initial visit with pt and her father, Polo. Pt is a member of [employer] and was visited by [employer] today. Pt demonstrates dynamic trust in God and verbalized desire that her continued allan through her struggles helps others. Dr. Sanchez visited and notified her of plans to discharge today, and to drink liquids only for they next 2-3 days.
== END 2018-10-16 16:25 | disposition home or self-care (01) | DRG 390 ==
LOC: EDUNIT# 20:28 → ER 20:30 → 4TH 21:41 → UNDOADMOB 21:41 → 4TH 23:25 → OBSVTOIN 10-15 11:03 → INTOOBSV 10-15 11:03 → UNDODISIN 10-16 16:25
PROVIDERS: ADMIT Family Medicine; ATTEND Family Medicine
DX: K56.690 Other partial intestinal obstruction (principal); K59.00 Constipation, unspecified; F17.210 Nicotine dependence, cigarettes, uncomplicated; J30.2 Other seasonal allergic rhinitis; G25.81 Restless legs syndrome; I10 Essential (primary) hypertension; G43.909 Migraine, unspecified, not intractable, without status migrainosus; M54.9 Dorsalgia, unspecified; E66.9 Obesity, unspecified; F41.9 Anxiety disorder, unspecified; F32.9 Major depressive disorder, single episode, unspecified; Z90.5 Acquired absence of kidney; Z85.528 Personal history of other malignant neoplasm of kidney; Z87.19 Personal history of other diseases of the digestive system; Z68.39 Body mass index [BMI] 39.0-39.9, adult; Z86.19 Personal history of other infectious and parasitic diseases
CPT/HCPCS: 36415; 71045; 74176; 74250; 80053; 85025; 85027; 94760; 96372; 96374; G0378

== ENCOUNTER 2018-10-16 05:35 | Outpatient (CLI) | payer MEDICARE, MEDICAID ==
[~2018-10-16] VITALS: Ht 157.5 cm; Wt 117.9 kg
[~2018-10-16 05:35] MED LIST changes: +PHEN-483 PO
== END 2018-10-16 16:23 | disposition home or self-care (01) ==
LOC: PREOP 05:35
PROVIDERS: ATTEND Surgery
DX: Z01.818 Encounter for other preprocedural examination (principal)

== ENCOUNTER 2018-10-22 07:10 | Inpatient (IN) | payer MEDICARE, MEDICAID ==
[~2018-10-22] VITALS: Ht 157.5 cm; Wt 117.9 kg
[2018-10-22] VITALS (11 sets, daily range): BP systolic 115–138; BP diastolic 64–84
--- OUTSIDE RECORDS SUMMARY | 2018-10-22 07:19 | XMS REPORT | Encounter Summary ---
Author Author [facility] Organization [facility] Address Unknown Phone Unavailable Care Team Providers Care Film Numberer Name Role Phone Michael Sutton MD Unavailable Unavailable Mary Whittington MD PCP Jessica Valera Unavailable Maggie Puente Unavailable Unavailable Mary Telles INDIVIDUAL PENSION CONSULTANT Unavailable Bam Ritter MD Unavailable Radha Bo LPN Unavailable Unavailable Jose Sanchez MD Unavailable Reason for Visit * Auth/Cert Referred By Contact Referred To Contact Status Reason Specialty Diagnoses / Procedures Diagnoses Chronic pancreatitis, unspecified pancreatitis type (HCC) Nausea Generalized abdominal pain Chronic pancreatitis, unspecified pancreatitis type (HCC) [K86.1] Nausea [R11.0] Generalized abdominal pain [R10.84] P rocedures [place] EGD TRANSORAL BIOPSY SINGLE/MULTIPLE NH EDG US EXAM SURGICAL ALTER STOM DUODENUM/JEJUNUM ESOPHAGOGASTRODUOD ENOSCOPY WITH BIOPSY - FLEXIBLE ESOPHAGOGASTRODUOD ENOSCOPY WITH ENDOSCOPIC ULTRASOUND EXAMINATION - FLEXIBLE Encounter Details Care Team Description Date Type Department Hal Sparks MD [address] Ortho/Med [facility]ilion [address] [place] [address] ESOPHAGOGASTRODUODENOSCOPY WITH ENDOSCOPIC ULTRASOUND EXAMINATION - FLEXIBLE 08/22/2018 Surgery [facility] [address] [place] [address] Social History Date Tobacco Use [...] Taken Vital Sign Reading 08/22/2018 8:50 AM SUPERINTENDENT DISTRIBUTION Blood Pressure 115/86 08/22/2018 8:54 AM SUPERINTENDENT DISTRIBUTION Pulse 89 08/22/2018 8:30 AM SUPERINTENDENT DISTRIBUTION Temperature 36.8 C (98.2 F) - Respiratory Rate - 08/22/2018 8:53 AM SUPERINTENDENT DISTRIBUTION Oxygen Saturation 96% - Inhaled Oxygen - Concentration 08/22/2018 7:00 AM SUPERINTENDENT DISTRIBUTION Weight 122.5 kg (270 lb) 08/22/2018 7:00 AM SUPERINTENDENT DISTRIBUTION Height 157.5 cm (5' 2") 08/22/2018 7:00 AM SUPERINTENDENT DISTRIBUTION Body Mass Index 49.38 documented in this [...] Mary Lechuga RN - 08/22/2018 8:46 AM SUPERINTENDENT DISTRIBUTION EGD/Upper EUS/ERCP/Antegrade Enteroscopy Post Upper Endoscopy Instructions [...] or concerns after your procedure please call [phone] M-F 8am-5:00 pm. After 5:00 pm, holidays or weekends call [phone] and ask for the GI Doctor production controller. RINTENDENT DISTRIBUTION documented in this encounter Medications at Time [...] Joel Cantu MD - 08/22/2018 8:12 AM SUPERINTENDENT DISTRIBUTION Pre Procedure History and Physical/Sedation Plan Name:Jnaeth Rajput :1985 Age: 33 y.o. Date of [...] Relevant labs reviewed Joel Cantu MD Pager RINTENDENT DISTRIBUTION documented in this encounter Plan of Treatment Not on filedocumented as of this encounter Procedures Comments Procedure Name Priority Date/Time Associated Diagnosis ESOPHAGOGASTRODUODENOSCOP 08/22/2018 Chronic pancreatitis, Y WITH ENDOSCOPIC 8:00 AM SUPERINTENDENT DISTRIBUTION unspecified pancreatitis ULTRASOUND EXAMINATION - type (HCC) [...] () ENDOSCOPIC ULTRASOUND 08/22/2018 REPORT 7:47 AM SUPERINTENDENT DISTRIBUTION documented in this encounter Results * ENDOSCOPIC ULTRASOUND REPORT (08/22/2018 7:47 AM SUPERINTENDENT DISTRIBUTION) Provation Patient Name: Regulo WILKS OTHER Report Procedure Date: 08/22/2018 7:47 RESULTS AM CSN: [id number] Date of : 1985 Gender: Female Attending Physician: Hal Sparks MD Procedure: Upper EUS Indications: Epigastric abdominal pain, Family h/o chronic pancreatitis, pancreas divisum Providers: Hal Sparks MD (Doctor), Lorenza Powers RN (Nurse), Ana Fuentes (Radiologic Therapist) Referring Physician: Randy Viveros MD Medications: Monitored [...] 55 seconds Procedure Code(s): --- Professional --- 61129, Esophagogastroduodenoscopy, flexible, transoral; with endoscopic ultrasound examination limited to the esophagus, stomach or duodenum, and adjacent structures CPT copyright 2017 [employer]. All rights reserved. The codes documented in this report are preliminary and upon cancer center director review may be revised to meet current [...] Medication Order MAR Action 08/22/2018 7:26 AM SUPERINTENDENT DISTRIBUTION 1,000 mL sodium chloride 0.9 % infusion Given - New 1,000 mL, Intravenous, CONTINUOUS, Bag Starting Sat08/22/18 at 0730, Until Sat08/22/18 at 1121, Pre-Op documented in this encounter
--- OUTSIDE RECORDS SUMMARY | 2018-10-22 07:19 | XMS REPORT | Encounter Summary ---
Author Author [facility] Organization [facility] Address Unknown Phone Unavailable Care Team Providers Care Block Greaser Name Role Phone Michael Sutton MD Unavailable Unavailable Mary Whittington MD PCP Jessica Valera Unavailable Maggie Puente Unavailable Unavailable Mary Telles APRN Unavailable Bam Ritter MD Unavailable Radha Bo LPN Unavailable Unavailable Jose Sanchez MD Unavailable Encounter Details Care Team Description Date Type Department Jessica Valera ARNP [address] [facility] Ortho/Med Pavilion [address] [place] [address] 10/14/2018 Telephone [facility] [address] [place] [address] Social History Date Tobacco Use [...] encounter Miscellaneous Notes * Telephone Encounter - Melinda Gan - 10/15/2018 1:38 PM CDT Followed up with pt. She is currently admitted to the hospital at [facility] in [place], [place]. States "they saw signs of a bowel perforation on CT," and "I have a tube up my nose." She will follow-up upon release from the hospital. Routing to Jessica Valera to inform. * Telephone Encounter - Melinda Gan - 10/15/2018 1:31 PM CDT Called patient 10/14/18, she stated she was currently in the ED due to severe pain. Will allow ED workup and follow-up with pt tomorrow. Late documentation. * Telephone Encounter - Jessica Valera ARNP - 10/14/2018 1:16 PM CDT Call pt. She is very complex and has not been seen since 03/2018. Find out what her specific symptoms are then can update Dr. Nunez to see if he has any recommendations. She no showed her appointment with him in 06/2018. * Telephone Encounter - Jessica Valera ARNP - 10/14/2018 1:16 PM CDT Regarding: FW: Prescription Question Contact: ----- Message ----- From: Janeth Finley Sent: 10/14/2018 9:33 AM To: Coral [place] Nurse Giovanna Subject: Prescription Question ----- Message from Rahat Miller sent at 10/14/2018 9:33 AM CDT ----- [...] do and so just let me know thanks lindae documented in this encounter Plan of Treatment Not on filedocumented as of this encounter Visit Diagnoses Not on filedocumented in this encounter
--- OUTSIDE RECORDS SUMMARY | 2018-10-22 07:19 | XMS REPORT | Encounter Summary ---
Author Author [facility] Organization [facility] Address Unknown Phone Unavailable Care Team Providers Care Remotely Operated Vehicle Name Role Phone Michael Sutton MD Unavailable Unavailable Mary Whittington MD PCP Jessica Valera Unavailable Maggie Puente Unavailable Unavailable Mary Telles SALES REPRESENTATIVE PRINTING Unavailable Bam Ritter MD Unavailable Radha Bo LPN Unavailable Unavailable Jose Sanchez MD Unavailable Reason for Visit * Auth/Cert Referred By Contact Referred To Contact Status Reason Specialty Diagnoses / Procedures Diagnoses Chronic pancreatitis, unspecified pancreatitis type (HCC) Nausea Generalized abdominal pain Chronic pancreatitis, unspecified pancreatitis type (HCC) [K86.1] Nausea [R11.0] Generalized abdominal pain [R10.84] P rocedures [place] EGD TRANSORAL BIOPSY SINGLE/MULTIPLE [place] EDG US EXAM SURGICAL ALTER STOM DUODENUM/JEJUNUM ESOPHAGOGASTRODUOD ENOSCOPY WITH BIOPSY - FLEXIBLE ESOPHAGOGASTRODUOD ENOSCOPY WITH ENDOSCOPIC ULTRASOUND EXAMINATION - FLEXIBLE Encounter Details Care Team Description Date Type Department Ekaterina Chairez CRNA [id number] [place], [place] [id number] 08/22/2018 Anesthesia [facility] [address] [place] [address] Anesthesia Record Responsible Anesthesiologist Anesthesia [...] Janice Dickerson MD - 08/22/2018 8:52 AM PROGRAM TECHNICIAN Post-Anesthesia Evaluation Name: Janeth Rajput : 1985 [...] Perioperative Event: No Emergency Case Activation: No RAM TECHNICIAN * Anesthesia Preprocedure Evaluation - Nuzhat Rudolph CRNA - 08/22/2018 7:04 AM PROGRAM TECHNICIAN Anesthesia Pre-Procedure Evaluation Name: Janeth Rajput : [...] Consent: consented Plan discussed with: anesthesiologist and CAREER DEVELOPMENT MANAGER. Comments: (Pt reports fentanyl and demerol allergy, says they cause itching and hallucinations. Reports she received benadryl for her last procedure and received fentanyl and had no adverse outcomes.) RAM TECHNICIAN documented in this encounter Plan of Treatment Not on filedocumented as of this encounter Visit Diagnoses Not on filedocumented in this encounter Administered Medications Action Date Dose Rate Site Medication Order MAR Action 08/22/2018 8:18 AM PROGRAM TECHNICIAN 120 mg lidocaine (PF) injection Given INTRA-PROCEDURE MED, Starting Sat08/22/18 at 0818, Until Sat08/22/18 at 0834, Anesthesia Intra-op 08/22/2018 8:18 AM PROGRAM TECHNICIAN 4 mg ondansetron (ZOFRAN) injection Given INTRA-PROCEDURE MED, Starting Sat08/22/18 at 0818, Until Sat08/22/18 at 0834, Anesthesia Intra-op 08/22/2018 8:24 AM PROGRAM TECHNICIAN 140 mcg/kg/min 102.9 mL/hr propofol (DIPRIVAN) infusion Dose/Rate 50 mL, Intravenous, INTRA-PROCEDURE Change MED(CONT), Starting Sat08/22/18 at 0819, Until Sat08/22/18 at 08, Anesthesia Intra-op 130 mcg/kg/min 95.6 mL/hr Dose/Rate Change 08/22/2018 8:22 AM PROGRAM TECHNICIAN 120 mcg/kg/min 88.2 mL/hr Given - New Bag 08/22/2018 8:19 AM PROGRAM TECHNICIAN 08/22/2018 8:26 AM PROGRAM TECHNICIAN 10 mg propofol (DIPRIVAN) injection Given INTRA-PROCEDURE MED, Starting Sat08/22/18 at 0819, Until Sat08/22/18 at 0834, Anesthesia Intra-op 20 mg Given 08/22/2018 8:25 AM PROGRAM TECHNICIAN 20 mg Given 08/22/2018 8:23 AM PROGRAM TECHNICIAN documented in this encounter
--- OUTSIDE RECORDS SUMMARY | 2018-10-22 07:19 | XMS REPORT | Clinical Summary ---
Author Author [facility] Organization [facility] Address Unknown Phone Unavailable Care Team Providers Care Custodial Maintenance Worker Name Role Phone Michael Sutton MD [...] in the Health Information Management department at [phone] for further assistance in locating additional records.[facility] Allergies Comments Active Allergy Reactions Severity [...] Overview: Added automatically from request for surgery [id number] Intractable vomiting with nausea 01/14/2018 Overview: Added automatically from request for surgery [id number] Left renal mass 04/10/2017 Renal mass 03/21/2017 Overview: Added automatically from request for surgery [id number] 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 06/24/2013 Overview: S/P [place], BSO 11/27 [...] Taken Vital Sign Reading 08/22/2018 8:50 AM COCKTAIL SERVER Blood Pressure 115/86 08/22/2018 8:54 AM COCKTAIL SERVER Pulse 89 08/22/2018 8:30 AM COCKTAIL SERVER Temperature 36.8 C (98.2 F) 05/19/2018 1:06 PM COCKTAIL SERVER Respiratory Rate 18 08/22/2018 8:53 AM COCKTAIL SERVER Oxygen Saturation 96% - Inhaled Oxygen - Concentration 08/22/2018 7:00 AM COCKTAIL SERVER Weight 122.5 kg (270 lb) 08/22/2018 7:00 AM COCKTAIL SERVER Height 157.5 cm (5' 2") 08/22/2018 7:00 AM COCKTAIL SERVER Body Mass Index 49.38 Plan of Treatment Health Maintenance Due Date Last Done Comments PHYSICAL (COMPREHENSIVE) 1991 EXAM HIV SCREENING 1999 DTAP/TDAP VACCINES (1 - 2002 Tdap) CERVICAL CANCER SCREENING 2014 INFLUENZA VACCINE 03/17/2019 06/03/2018 Procedures Comments Procedure Name Priority Date/Time Associated Diagnosis C DIFFICILE BY PCR Routine 08/26/2018 Diarrhea, unspecified type ESOPHAGOGASTRODUODENOSCOP 08/22/2018 Chronic pancreatitis, Y WITH ENDOSCOPIC 8:00 AM COCKTAIL SERVER unspecified pancreatitis ULTRASOUND EXAMINATION - type (HCC) [...] () ENDOSCOPIC ULTRASOUND 08/22/2018 REPORT 7:47 AM COCKTAIL SERVER from Last 3 Months Results * C DIFFICILE BY PCR (08/26/2018) Narrative Performed At Performing Organization Address City/State/Zipcode Phone Number OTHER OUTSIDE LAB * ENDOSCOPIC ULTRASOUND REPORT (08/22/2018 7:47 AM COCKTAIL SERVER) Provation Patient Name: Regulo WILKS OTHER Report Procedure Date: 08/22/2018 7:47 RESULTS AM CSN: [id number] Date of : 1985 Gender: Female Attending Physician: Hal Sparks MD Procedure: Upper EUS Indications: Epigastric abdominal pain, Family h/o chronic pancreatitis, pancreas divisum Providers: Hal Sparks MD (Doctor), Lorenza Powers RN (Nurse), Ana Fuentes (Fruit Raiser) Referring Physician: Abel Poe, Randy Nunez MD [...] 55 seconds Procedure Code(s): --- Professional --- 19447, Esophagogastroduodenoscopy, flexible, transoral; with endoscopic ultrasound examination limited to the esophagus, stomach or duodenum, and adjacent structures CPT copyright 2017 [employer]. All rights reserved. The codes documented in this report are preliminary and upon commission broker review may be revised to meet current [...] Present B AETNA MEDICAID AETNA xxxxxxxxxxx 2018-P [facility] Advance Directives Patient has advance care planning documents, and code status on file. For more information, please contact: [facility] [address] [place] [address] Date Inactivated Comments Code Status Date Activated 04/11/2017 4:57 PM Full Code 04/10/2017 5:31 PM Provider has discussed Code Status No, discussion not w/Patient or Family? necessary based on Dx
--- OUTSIDE RECORDS SUMMARY | 2018-10-22 07:19 | XMS REPORT | Encounter Summary ---
Author Author [facility] Organization [facility] Address Unknown Phone Unavailable Care Team Providers Care Irrigation Flume Layer Name Role Phone Michael Sutton MD Unavailable Unavailable Mary Whittington MD PCP Jessica Valera Unavailable Maggie Puente Unavailable Unavailable Mary Telles APRN Unavailable Bam Ritter MD Unavailable Radha Bo LPN Unavailable Unavailable Jose Sanchez MD Unavailable Reason for Visit * Reason Comments Referral Encounter Details Care Team Description Date Type Department Abel Poe MD [address] [place] [address] [phone] Referral 09/25/2018 Telephone [facility] [address] [address] Social History Date Tobacco Use Types Packs/Day [...] name and will let her physician in [place] know. documented in this encounter Plan of Treatment Not on filedocumented as of this encounter Visit Diagnoses Not on filedocumented in this encounter
--- OUTSIDE RECORDS SUMMARY | 2018-10-22 07:19 | XMS REPORT | Encounter Summary ---
Author Author [facility] Organization [facility] Address Unknown Phone Unavailable Care Team Providers Care Nuclear Operations Specialist Name Role Phone Michael Sutton MD Unavailable Unavailable Mary Whittington MD PCP Jessica Valera Unavailable Maggie Puente Unavailable Unavailable Mary Telles APRN Unavailable Bam Ritter MD Unavailable Radha Bo LPN Unavailable Unavailable Jose Sanchez MD Unavailable Encounter Details Care Team Description Date Type Department Melina Vargas Diarrhea, unspecified type 08/29/2018 Orders Only [facility] [address] [place] [address] Social History Date Tobacco Use [...]
--- OUTSIDE RECORDS SUMMARY | 2018-10-22 07:19 | XMS REPORT | Encounter Summary ---
Author Author [facility] Organization [facility] Address Unknown Phone Unavailable Care Team Providers Care Gift Basket Packer Name Role Phone Michael Sutton MD Unavailable Unavailable Mary Whittington MD PCP Jessica Valera Unavailable Maggie Puente Unavailable Unavailable Mary Telles APRN Unavailable Bam Ritter MD Unavailable Radha Bo LPN Unavailable Unavailable Jose Sanchez MD Unavailable Reason for Visit * Reason Comments Medication Refill Encounter Details Care Team Description Date Type Department Jessica Valera ARNP [address] Ortho/Med [facility] [place] [address] Chronic nausea; Chronic vomiting 09/09/2018 Refill [facility] [address] [place] [address] Social History Date Tobacco Use [...]
--- OUTSIDE RECORDS SUMMARY | 2018-10-22 07:20 | XMS REPORT | Encounter Summary ---
Author Author [facility] Organization [facility] Address Unknown Phone Unavailable Care Team Providers Care Smoke Eater Name Role Phone Michael Sutton MD Unavailable Unavailable Mary Whittington MD PCP Jessica Valera Unavailable Maggie Puente Unavailable Unavailable Mary Telles APRN Unavailable Bam Ritter MD Unavailable Radha Bo LPN Unavailable Unavailable Jose Sanchez MD Unavailable Reason for Visit * Reason Comments Medication Refill Encounter Details Care Team Description Date Type Department Randy Nunez MD [address] [facility] [address] [place] [address] Medication monitoring encounter 08/18/2018 Refill [facility] [address] [place] [address] Social History Date Tobacco Use [...]
--- OUTSIDE RECORDS SUMMARY | 2018-10-22 07:20 | XMS REPORT | Encounter Summary ---
Author Author [facility] Organization [facility] Address Unknown Phone Unavailable Care Team Providers Care Long Winder Tender Name Role Phone Michael Sutton MD Unavailable Unavailable Mary Whittington MD PCP Jessica Valera Unavailable Maggie Puente Unavailable Unavailable Mary Telles STEEL ANALYST Unavailable Bam Ritter MD Unavailable Radha Bo LPN Unavailable Unavailable Jose Sanchez MD Unavailable Reason for Visit * Auth/Cert Referred By Contact Referred To Contact Status Reason Specialty Diagnoses / Procedures Diagnoses Chronic pancreatitis, unspecified pancreatitis type (HCC) Nausea Generalized abdominal pain Chronic pancreatitis, unspecified pancreatitis type (HCC) [K86.1] Nausea [R11.0] Generalized abdominal pain [R10.84] P rocedures [place] EGD TRANSORAL BIOPSY SINGLE/MULTIPLE [place] EDG US EXAM SURGICAL ALTER STOM DUODENUM/JEJUNUM ESOPHAGOGASTRODUOD ENOSCOPY WITH BIOPSY - FLEXIBLE ESOPHAGOGASTRODUOD ENOSCOPY WITH ENDOSCOPIC ULTRASOUND EXAMINATION - FLEXIBLE Encounter Details Care Team Description Date Type Department Hal Sparks MD [address] Orth[facility] [address] [place] [address] Chronic pancreatitis, unspecified pancreatitis type (HCC) 08/22/2018 Hospital [facility] [address] [place] [address] Social History Date Tobacco Use [...] Taken Vital Sign Reading 08/22/2018 8:50 AM STAFF ANALYST Blood Pressure 115/86 08/22/2018 8:54 AM STAFF ANALYST Pulse 89 08/22/2018 8:30 AM STAFF ANALYST Temperature 36.8 C (98.2 F) - Respiratory Rate - 08/22/2018 8:53 AM STAFF ANALYST Oxygen Saturation 96% - Inhaled Oxygen - Concentration 08/22/2018 7:00 AM STAFF ANALYST Weight 122.5 kg (270 lb) 08/22/2018 7:00 AM STAFF ANALYST Height 157.5 cm (5' 2") 08/22/2018 7:00 AM STAFF ANALYST Body Mass Index 49.38 documented in this [...] Mary Lechuga RN - 08/22/2018 8:46 AM STAFF ANALYST EGD/Upper EUS/ERCP/Antegrade Enteroscopy Post Upper Endoscopy Instructions [...] or concerns after your procedure please call [phone] M-F 8am-5:00 pm. After 5:00 pm, holidays or weekends call [phone] and ask for the GI Doctor occupational health and safety manager. F ANALYST documented in this encounter Medications at Time [...] of this encounter H&P Notes * Joel Cnatu MD - 08/22/2018 8:12 AM STAFF ANALYST Pre Procedure History and Physical/Sedation Plan Name:Janeth [...] Relevant labs reviewed Joel Cantu MD Pager F ANALYST documented in this encounter Plan of Treatment Not on filedocumented as of this encounter Procedures Comments Procedure Name Priority Date/Time Associated Diagnosis ESOPHAGOGASTRODUODENOSCOP 08/22/2018 Chronic pancreatitis, Y WITH ENDOSCOPIC 8:00 AM STAFF ANALYST unspecified pancreatitis ULTRASOUND EXAMINATION - type (HCC) [...] () ENDOSCOPIC ULTRASOUND 08/22/2018 REPORT 7:47 AM STAFF ANALYST documented in this encounter Results * ENDOSCOPIC ULTRASOUND REPORT (08/22/2018 7:47 AM STAFF ANALYST) Provation Patient Name: Regulo WILKS OTHER Report Procedure Date: 08/22/2018 7:47 RESULTS AM CSN: [id number] Date of : 1985 Gender: Female Attending Physician: Hal Sparks MD Procedure: Upper EUS Indications: Epigastric abdominal pain, Family h/o chronic pancreatitis, pancreas divisum Providers: Hal Sparks MD (Doctor), Lorenza Powers RN (Nurse), Ana Fuentes (Mold Worker) Referring Physician: Randy Viveros MD Medications: Monitored [...] 55 seconds Procedure Code(s): --- Professional --- 95350, Esophagogastroduodenoscopy, flexible, transoral; with endoscopic ultrasound examination limited to the esophagus, stomach or duodenum, and adjacent structures CPT copyright 2017 [employer]. All rights reserved. The codes documented in this report are preliminary and upon mortgage loan officer review may be revised to meet current [...] Medication Order MAR Action 08/22/2018 7:26 AM STAFF ANALYST 1,000 mL sodium chloride 0.9 % infusion Given - New 1,000 mL, Intravenous, CONTINUOUS, Bag Starting Sat08/22/18 at 0730, Until Sat08/22/18 at 1121, Pre-Op documented in this encounter
--- OUTSIDE RECORDS SUMMARY | 2018-10-22 07:21 | XMS REPORT ---
Author Author Migration, Doctor Organization [facility] Address Unknown Phone Unavailable Care Team Providers Care Gym Teacher Name Role Phone Migration, Doctor Unavailable Unavailable PROBLEMS Type Condition ICD9-CM Code SAP23-CV Code Onset Dates Condition Status SNOMED Code Problem Chronic tension-type headache, intractable G44.221 Active 424060388 Problem Right carpal tunnel syndrome G56.01 Active 604723223071803 Problem Hyperlipidemia, mixed E78.2 Active 957902009 Problem Morbid (severe) obesity due to excess calories E66.01 Active 241303856 Problem FH: polycystic ovary Z84.2 Active 602617238 Problem Hirsuties L68.0 Active 308549237 Problem Asthma J45.909 Active 218694450 Problem Chronic pancreatitis K86.1 Active 262854037 Problem Trichotillomania F63.3 Active 20770823 Problem Restless leg syndrome G25.81 Active 02283612 Problem Generalized social phobia F40.11 Active 29352318 Problem Primary osteoarthritis of right knee M17.11 Active 737650592203050 Problem Atelectasis J98.11 Active 87236917 Problem History of renal cell carcinoma Z85.528 Active 602657839 Problem Obesities, morbid E66.01 Active 953980119 Problem Polydipsia R63.1 Active 10630135 Problem Nodule of left lung R91.1 Active 165008784 Problem Chronic post-traumatic stress disorder (PTSD) F43.12 Active 936565530 Problem Moderate episode of recurrent major depressive disorder F33.1 Active 198574709 Problem Chronic fatigue R53.82 Active 63528199 Problem Intestinal malabsorption, unspecified K90.9 Active 49954425 ALLERGIES No Information ENCOUNTERS Encounter Location Date Diagnosis [facility] [address] [facility] [id number], [place] [address] October, [facility] [address] [facility] [id number], [place] [address] October, [address] [address] Sep, [facility] [address] [facility] [id number], [place] [address] Sep, [facility] [address] [facility] [id number], [place] [address] Sep, [facility] [address] [facility] [id number], [place] [address] Sep, [facility] [address] [facility] [id number] [place] [address] 11177- 6933 Sep, Lower extremity edema R60.0 [facility] [address] [facility] [id number] [place] [address] 63016- 8135 Sep, [facility] [address] [facility] [id number], [place] [address] Sep, Lower extremity edema R60.0 and Morbid obesity E66.01 [facility] [address] [facility] [id number], [place] [address] Sep, [facility] [address] [facility] [id number], [place] [address] Sep, [facility] [address] [facility] [id number], [place] [address] Aug, [facility] [address] [facility] [id number], [place] [address] Aug, Obesities, morbid E66.01 and Morbid obesity E66.01 [facility] [address] [facility] [id number], [place] [address] Aug, [facility] [address] [place] [address] Jul, [facility] [address] [facility] [id number], [place] [address] 9[address] Jul, [facility] [address], [place] [address] Jul, [facility] [address], [place] [address] 9360 Jul, Numbness of right hand R20.0 [facility] [address] [id number] [place] [address] 72116- 8552 Jul, [facility] [id number] [place] [address] 64118- 3538 Jul, Numbness of right hand R20.0 [facility] [id number] [place] [address] 61608- 1447 Jul, [facility] [id number] [place] [address] 63214- 5260 Jul, [facility] [id number] [place] [address] 41731- 8449 Jul, Right-sided thoracic back pain M54.6 [facility] [id number] [place] [address] 14095- 9601 Jul, [facility] [id number] [place] [address] 28768- 6876 Jul, [facility] [id number] [place] [address] 15809- 8775 Jul, [facility] [address], [place] [address] 9429 Jul, [facility] [id number] [place] [address] 88212- 6045 Jun, [facility] [id number] [place] [address] 13189- 3117 Jun, Acute pain of right shoulder M25.511 ; Numbness of right hand R20.0 and Trapezius muscle spasm M62.838 [facility] [address], [place] [address] 488[address] Jun, [facility] [id number] [place] [address] 32077- 1946 Jun, [facility] [id number] [place] [address] 90393- 2657 Jun, Cough R05 ; BMI 50.0-59.9, adult Z68.43 and Morbid obesity E66.01 [facility] [id number] [place] [address] 15473- 5079 Jun, [facility] [address] 59[address]- 9751 Jun, [facility] [id number] [place] [address] 58626 -2425 Jun, BMI 45.0-49.9, adult Z68.42 and Acute non-recurrent maxillary sinusitis J01.00 [facility] [id number] [place] [address] 49883 -3034 Jun, Acute sinusitis J01.90 ; Dysuria R30.0 and BMI 45.0-49.9, adult Z68.42 [facility] [id number] [place] [address] 56589- 4831 Jun, [facility] [id number] [place] [address] 77578- 4687 Jun, [facility] [id number] [place] [address] 29826- 3011 May, [facility] [id number] [place] [address] 96673- 8234 May, [facility] [id number] [place] [address] 81262- 9574 May, [facility] [id number] [place] [address] 81959- 7890 May, [facility] [id number] [place] [address] 14059- 5875 May, [facility] [id number] [place] [address] 27580- 4060 Apr, Generalized social phobia F40.11 ; Trichotillomania F63.3 ; Chronic post-traumatic stress disorder (PTSD) F43.12 and BMI 45.0-49.9, adult Z68.42 [place] [id number] [place] [address] 96336- 7098 Apr, [place] [id number] [place] [address] 62726- 4166 Apr, Chronic tension-type headache, intractable G44.221 [place] [address] 43581- 0783 Apr, [facility] [address] 88482 -4039 Mar, [facility] [address] 01643 -8827 Mar, BMI 45.0-49.9, adult Z68.42 and Pimples R23.8 [place] [id number] [place] [address] 78960- 1255 Mar, [place] [id number] [place] [address] 88014- 8154 Mar, [place] [id number] [place] [address] 60401- 6737 Mar, Decreased urination R34 ; Chronic fatigue R53.82 ; Peripheral edema R60.9 ; Diarrhea, unspecified type R19.7 ; Non-intractable vomiting with nausea, unspecified vomiting type R11.2 ; BMI 45.0-49.9, adult Z68.42 and Chronic post-traumatic stress disorder (PTSD) F43.12 [place] [id number] [place] [address] 41349- 1868 Mar, Intestinal malabsorption, unspecified K90.9 ; Diarrhea, unspecified R19.7 ; Urinary urgency R39.15 ; Rectal bleeding K62.5 and Decreased urine output R34 [place] [id number] [place] [address] 92695- 9357 Mar, Decreased urine output R34 [facility] [id number] [place] [address] 75294- 1141 Mar, Rectal bleeding K62.5 [facility] [id number] [place] [address] 56485- 9880 Mar, Rectal bleeding K62.5 [facility] [id number] [place] [address] 04948- 1479 Mar, Urinary urgency R39.15 [facility] [id number] [place] [address] 89419- 0370 Mar, Urinary urgency R39.15 [facility] [id number] [place] [address] 89584- 0694 Mar, Primary osteoarthritis of right knee M17.11 and BMI 45.0- 49.9, adult Z68.42 [facility] [id number] [place] [address] 63390- 0902 Mar, [facility] [id number] [place] [address] 15499- 5018 Feb, Left upper arm pain M79.622 [facility] [id number] [place] [address] 29365- 9443 Feb, [facility] [id number] [place] [address] 62820- 0556 Jan, Acute pain of right knee M25.561 ; Right upper quadrant abdominal pain R10.11 and BMI 45.0-49.9, adult Z68.42 [facility] [id number] [place] [address] 05973- 6019 Jan, [facility] [id number] [place] [address] 38316- 9091 Jan, [facility] [id number] [place] [address] 86479- 5139 Dec, [facility] [address], [place] [address]- 0286 Dec, Intestinal malabsorption, unspecified K90.9 and Diarrhea, unspecified R19.7 [facility] [address], [place] [address]- 0867 Dec, [facility] [id number] [place] [address] 02238- 9445 Dec, Strep throat J02.0 ; Intestinal malabsorption, unspecified K90.9 ; Diarrhea, unspecified R19.7 ; Postoperative seroma involving digestive system after non-digestive system procedure K91.873 ; Hyperlipidemia, mixed E78.2 and BMI 45.0-49.9, adult Z68.42 [facility] [id number] [place] [address] 96429- 7073 Dec, [facility] [id number] [place] [address] 97890- 6939 Dec, Nausea R11.0 [facility] [id number] [place] [address] 99753- 7946 Dec, [facility] [id number] [place] [address] 26007 -7821 Dec, Sore throat J02.9 ; Strep throat J02.0 and BMI 45.0-49.9, adult Z68.42 [facility] [address], [place] [address]- 7897 Dec, [facility] [address], [place] [address]- 0633 Dec, [facility] [id number] [place] [address] 32026- 9056 Dec, [facility] [id number] [place] [address] 14766- 1622 Dec, [facility] [id number] [place] [address] 43917- 5809 Dec, [facility] [id number] [place] [address] 97348- 2002 Dec, [facility] [id number] [place] [address] 93542- 9309 Dec, [facility] [id number] [place] [address] 93786- 6825 Dec, [facility] [id number] [place] [address] 96321- 1502 Dec, Clostridium difficile colitis A04.72 ; Intractable vomiting with nausea, unspecified vomiting type R11.2 and BMI 45.0-49.9, adult Z68.42 [place] [id number] [place] [address] 30792- 5656 Dec, [facility] [id number] [place] [address] 62465- 3346 Nov, [facility] [id number] [place] [address] 97587- 5325 Nov, [facility] [id number] [place] [address] 60759- 4578 Nov, [facility] [id number] [place] [address] 15813- 1016 Nov, [facility] [id number] [place] [address] 64704 -8392 Nov, [facility] [id number] [place] [address] 43842- 9597 Nov, Hyperlipidemia, mixed E78.2 [facility] [address] 77345 -2904 Nov, Acute suppurative otitis media of right ear without spontaneous rupture of tympanic membrane, recurrence not specified H66.001 and BMI 45.0-49.9, adult Z68.42 [facility] [address] 41010- 6216 Nov, Hyperlipidemia, mixed E78.2 [place] [address], [place] [address]- 9329 Nov, [place] [id number] [place] [address] 22605- 6441 Nov, [place] [id number] [place] [address] 12000- 8978 Nov, Nodule of left lung R91.1 [place] [address] [place] [address] 43287- 3006 Nov, Medicare annual wellness visit, initial Z00.00 [...] adult Z68.42 and Encounter for immunization Z23 [place] [id number] [place] [address] 85017- 3000 October, [place] [id number] [place] [address] 24437- 6517 October, Nodule of left lung R91.1 [place] [id number] [place] [address] 04638- 5360 October, Nodule of left lung R91.1 [place] [address] [place] [address] 53860- 7229 October, Recurrent major depressive disorder, in partial remission F33.41 ; Restless leg syndrome G25.81 ; Generalized social phobia F40.11 ; Chronic post-traumatic stress disorder (PTSD) F43.12 ; BMI 45.0-49.9, adult Z68.42 and Trichotillomania F63.3 [address], [place] [address]- 8986 October, [facility] [id number] [place] [address] 57824- 5476 Sep, Chronic fatigue R53.82 and BMI 45.0-49.9, adult Z68.42 [facility] [id number] [place] [address] 62398- 0336 Aug, [facility] [id number] [place] [address] 84754- 0559 Jul, Restless leg syndrome G25.81 and B12 deficiency E53.8 [facility] [id number] [place] [address] 37305- 7126 Jul, [facility] [id number] [place] [address] 24792- 8906 Jul, [facility] [id number] [place] [address] 50911- 3138 Jun, [facility] [id number] [place] [address] 43236- 7058 Jun, Fatigue, unspecified type R53.83 ; History of renal cell carcinoma Z85.528 ; Chronic pancreatitis K86.1 ; Restless leg syndrome G25.81 ; Dark urine R82.99 and BMI 45.0-49.9, adult Z68.42 [facility] [id number] [place] [address] 70587- 0498 Jun, [facility] [address] [place] [address] 97776- 1613 Jun, [facility] [id number] [place] [address] 77478- 8656 Jun, [facility] [id number], [place] [address]- 0776 Jun, [facility] [id number] [place] [address] 50939- 2377 May, Chronic post-traumatic stress disorder (PTSD) F43.12 ; Moderate episode of recurrent major depressive disorder F33.1 ; Trichotillomania F63.3 and Generalized social phobia F40.11 [place] [address], [place] [address]- 3807 May, [place] [address], [place] [address]- 1837 May, Chronic post-traumatic stress disorder (PTSD) F43.12 ; Moderate episode of recurrent major depressive disorder F33.1 ; Trichotillomania F63.3 and Generalized social phobia F40.11 [place] [address] [place] [address] 88908- 8822 May, Hyperlipidemia, mixed E78.2 ; Morbid (severe) obesity due to excess calories E66.01 ; Chronic post-traumatic stress disorder (PTSD) F43.12 ; Moderate episode of recurrent major depressive disorder F33.1 ; Trichotillomania F63.3 and Generalized social phobia F40.11 [place] [address], [place] [address]- 7834 Apr, [place] [id number] [place] [address] 02806- 7887 Apr, Hyperlipidemia, mixed E78.2 ; Morbid (severe) obesity due to excess calories E66.01 ; Chronic post-traumatic stress disorder (PTSD) F43.12 ; Moderate episode of recurrent major depressive disorder F33.1 ; Trichotillomania F63.3 and Generalized social phobia F40.11 [place] [address], [place] [address]- 7648 Apr, Trichotillomania F63.3 ; Generalized social phobia F40.11 ; Chronic post-traumatic stress disorder (PTSD) F43.12 and Moderate episode of recurrent major depressive disorder F33.1 [place] [address], [place] [address]- 5617 Apr, [place] [id number] [place] [address] 68210- 5129 Apr, [place] [id number] [place] [address] 16781- 3463 Mar, Moderate episode of recurrent major depressive disorder F33.1 ; Trichotillomania F63.3 ; Chronic post-traumatic stress disorder (PTSD) F43.12 ; Generalized social phobia F40.11 and Restless leg syndrome G25.81 [place] [address] 31970- 5741 Mar, [place] [address] 98696- 9080 Mar, [place] [address] 20851- 1255 Feb, Left kidney mass N28.[address] 20126- 8061 Jan, [place] [id number] [place] [address] 00206- 1101 Dec, Polydipsia R63.1 ; Chronic pancreatitis K86.1 and Fatigue, unspecified type R53.83 [place] [id number] [place] [address] 61284- 1350 Nov, [place] [id number] [place] [address] 18871- 2122 Nov, [place] [id number] [place] [address] 87187- 3210 Nov, Headache around the eyes R51 [place] [id number] [place] [address] 83317- 0092 Nov, [place] [id number] [place] [address] 05316- 9931 October, STD exposure Z20.[address] 25871- 9157 October, STD exposure Z20.2 [place] [id number] [place] [address] 42948- 4647 October, Chronic post-traumatic stress disorder (PTSD) F43.12 ; Generalized social phobia F40.11 ; Trichotillomania F63.3 and Restless leg syndrome G25.81 [place] [id number] [place] [address] 49313- 6613 October, [facility] [id number] [place] [address] 43766- 5668 Sep, [place] [id number] [place] [address] 03442- 9464 Aug, [place] [id number] [place] [address] 25649- 2407 Aug, [place] [id number] [place] [address] 58047- 8694 Aug, Neck mass R22.1 [place] [id number] [place] [address] 69849- 0851 Aug, Atelectasis J98.11 [place] [id number] [place] [address] 81024- 6232 28 Jul, 2016 Hyperlipidemia, mixed E78.2 ; Atypical pneumonia J18.9 and Neck mass R22.1 [place] [id number] [place] [address] 99187- 8038 15 Jul, 2016 Hemoptysis R04.2 [place] [id number] [place] [address] 29929- 8953 08 Jul, 2016 Acute non-recurrent pansinusitis J01.40 ; Hemoptysis R04.2 ; Polydipsia R63.1 and Malaise R53.81 [facility] [address], [place] [address] May, Other viral agents as the cause of diseases classified elsewhere B97.89 and Acute upper respiratory infection, unspecified J06.9 [id number], [place] [address] Mar, Nausea R11.0 [facility] [place] [address] [id number] [place] [address] 28 Dec, 2015 Hives L50.9 [place] [address] [address] [id number] [place] [address]50- 4828 14 Dec, 2015 [facility] [place] [address] [address] [id number] [place] [address] Dec, Cutaneous abscess of limb, unspecified L02.419 ; Cellulitis of unspecified part of limb L03.119 ; Encounter for incision and drainage procedure Z01.89 and Encounter for recheck of abscess following incision and drainage Z09 [facility] [place] [address] [id number] [place] [address] Dec, Abscess of leg, right L02.415 [place] [address] [address] [id number] [place] [address] 467[address]- 0936 Dec, Cellulitis of unspecified part of limb L03.119 and Cutaneous abscess of limb, unspecified L02.419 [place] [address] [id number] [place] [address] 67041- 7012 Dec, [place] [address] [place] [id number] [place] [address] 50035- 1245 Dec, [facility] [place] [address] [address] [id number] [place] [address] Aug, [place] [address] [place] [id number] [place] [address] 19482- 6870 Aug, [facility] [place] [address] [address] [id number] [place] [address] 7[address]22 [address] 04 Jul, 2015 Pain in unspecified wrist M25.539 and Back pain, thoracic M54.6 [facility] [place] [address] [id number] [place] [address] Jun, Strain of right wrist, initial encounter S66.911A [place] [address] [address] Jun, Chronic pancreatitis, unspecified pancreatitis type K86.1 ; Hirsuties L68.0 ; Morbid (severe) obesity due to excess calories E66.01 ; Chronic pancreatitis K86.1 and Asthma J45.909 [place] [address] [address] May, [place] [address] [address] May, Hyperlipidemia, mixed E78.2 and Muscle spasm of back M62.[address] [address] Apr, [address] [address] Apr, Torticollis M43.6 [place] [address] [address] Apr, Right-sided thoracic back pain M54.6 [place] [address] [place] [id number] [place] [address] 10325- 0067 Mar, Rash R21 [place] [address] [place] [id number] [place] [address] [address] Mar, [place] [address] [place] [id number] [place] [address]- 2064 Jan, [place] [address] [address] Dec, [place] [address] [address]- 6732 Dec, Urinary frequency 788.41 and Nocturia more than twice per night 788.43 [place] [address] [address]- [address] Nov, [facility] [id number], [place] [address] Nov, [facility] [id number], [place] [address] 72[address] Nov, Abdominal pain 789.00 [facility] [id number], [place] [address] 4[address] October, TDAP DX V06.1 [facility] [id number], [place] [address] 9[address] October, [facility] [id number] [place] [address]676- 5144 October, Disturbance of skin sensation 782.0 ; Wrist pain, right 719.43 ; Hyperlipidemia 272.4 and Skin lesion of face 709.9 [facility] [id number], [place] [address] 4[address] Sep, [facility] [id number], [place] [address]- 7[address] Sep, [facility] [id number], [place] [address] 8060 Aug, [facility] [id number], [place] [address] 1392 Aug, [facility] [id number], [place] [address] 4939 Aug, [facility] [id number], [place] [address]- 9442 23 Aug, 2014 [facility] [id number], [place] [address] 0[address] Aug, [facility] [id number], [place] [address]- 7966 16 Aug, 2014 [facility] [id number] 8666 14 Aug, 2014 [facility] [place] [facility] [address] [id number] [place] [address]- 8192 14 Aug, 2014 [facility] [place] [facility] [address] [id number] [place] [address]- 8476 Aug, [facility] [place] [facility] [address] [id number] [place] [address]- 9384 Aug, [facility] [place] [facility] [address] [id number] [place] [address]- 5247 Aug, [facility] [place] [facility] [address] [id number] [place] [address]- 6816 Aug, [facility] [place] [facility] [address] [id number] [place] [address]- 6929 Aug, [facility] [place] [facility] [address] [id number] [place] [address]- 2209 Aug, [facility] [place] [facility] [address] [id number] [place] [address]- 0088 Jul, [facility] [place] [facility] [address] [id number] [place] [address]- 4812 Jul, [facility] [place] [facility] [address] [id number] [place] [address]- 9400 Jul, [facility] [place] [facility] [address] [id number] [place] [address]- 2378 Jul, [facility] [place] [facility] [address] [id number], [place] [address]- 9188 Jul, [facility] [place] [facility] [address] [id number] [place] [address]- 1690 Jul, [facility] [place] [facility] [address] [id number] [place] [address]- 6138 Jun, [facility] [place] [facility] [address] [id number] [place] [address]- 2842 Jun, [facility] [place] [facility] [address] [id number] [place] [address]- 4063 Jun, [facility] [address] [id number] [place] [address]- 8994 Jun, [facility] [address] [id number] [place] [address]- 7085 Jun, [facility] [address] [id number] [place] [address]- 6880 Jun, [facility] [address] [id number] [place] [address]- 6666 15 Jun, 2014 [facility] [address] [id number] [place] [address]- 3389 15 Jun, 2014 [facility] [address] [id number] [place] [address]- 3375 May, [facility] [address] [id number] [place] [address]- 8928 May, [facility] [address] [id number] [place] [address]- 9108 May, [facility] [address] [id number] [place] [address]- 6070 May, [facility] [address] [id number] [place] [address]- 9265 15 May, 2014 [facility] [place] [facility] [address] [id number] [place] [address]- 6904 15 May, 2014 [facility] [address] [id number] [place] [address]- 6695 May, [facility] [place] [facility] [address] [id number] [place] [address]- 3327 May, [facility] [place] [facility] [address] [id number] [place] [address]- 9081 May, [facility] [address] [id number] [place] [address]- 1378 May, [facility] [place] [facility] [address] [id number] [place] [address]- 9528 May, [facility] [place] [facility] [address] [id number] [place] [address]- 6055 May, [facility] [place] [facility] [address] [id number] [place] [address]- 5701 Apr, [facility] [place] [facility] [address] [id number] [place] [address]- 1109 Apr, [facility] [place] [facility] [address] [id number] [place] [address]- 8218 Apr, [facility] [place] [facility] [address] [id number] [place] [address]- 0677 Apr, [facility] [place] [facility] [address] [id number] [place] [address]- 1504 Apr, [facility] [place] [facility] [address] [id number] [place] [address]- 4245 Apr, [facility] [place] [facility] [address] [id number] [place] [address]- 3391 Apr, [facility] [place] [facility] [address] [id number] [place] [address]- 2229 Apr, [facility] [place] [facility] [address] [id number], [place] [address]- 0560 Apr, [facility] [place] [facility] [address] [id number], [place] [address]- 9514 Apr, [facility] [place] [facility] [address] [id number] [place] [address]- 3515 Apr, [facility] [place] [facility] [address] [id number] [place] [address]- 5029 Apr, [facility] [place] [facility] [address] [id number], [place] [address]- 7178 14 Mar, 2014 [facility] [place] [facility] [address] [id number], [place] [address]- 4688 Mar, [facility] [place] [facility] [address] [id number] [place] [address]- 2790 Mar, [facility] [place] [facility] [address] [id number] [place] [address]- 9812 Mar, [facility] [place] [facility] [address] [id number] [place] [address]- 4280 Feb, [facility] [place] [facility] [address] [id number] [place] [address]- 4485 Feb, [facility] [place] [facility] [address] [id number] [place] [address]- 8830 Feb, [facility] [place] [facility] [address] [id number] [place] [address]- 5024 Feb, [facility] [place] [facility] [address] [id number] [place] [address]- 8592 Feb, [facility] [place] [facility] [address] [id number] [place] [address]- 6179 Feb, [facility] [place] [facility] [address] [id number] [place] [address]- 8026 Jan, [facility] [place] [facility] [address] [id number] [place] [address]- 6926 Jan, [facility] [place] [facility] [address] [id number] [place] [address]- 2721 Jan, [facility] [place] [facility] [address] [id number] [place] [address]- 5145 Jan, [facility] [place] [facility] [address] [id number] [place] [address]- 2207 Jan, [facility] [place] [facility] [address] [id number] [place] [address]- 0928 Jan, [facility] [place] [facility] [address] [id number] [place] [address]- 7518 Jan, [facility] [place] [facility] [address] [id number] [place] [address]- 5493 Jan, [facility] [place] [facility] [address] [id number] [facility] [place] [address]- 6919 Jan, [facility] [place] [facility] [address] [id number] [place] [address]- 4237 Jan, [facility] [place] [facility] [address] [id number] [place] [address]- 2567 Jan, [facility] [place] [facility] [address] [id number] [place] [address]- 1436 Jan, [facility] [place] [facility] [address] [id number] [place] [address]- 9331 Jan, [facility] [place] [facility] [address] [id number] [place] [address]- 7651 Jan, [facility] [place] [facility] [address] [id number] [place] [address]- 3536 Dec, [facility] [place] [facility] [address] [id number] [place] [address]- 7665 Dec, [facility] [place] [facility] [address] [id number] [place] [address]- 5976 Dec, [facility] [place] [facility] [address] [id number] [place] [address]- 4667 Dec, [facility] [place] [facility] [address] [id number] [place] [address]- 5767 Nov, [facility] [place] [facility] [address] [id number] [place] [address]- 7372 Nov, [facility] [place] [facility] [address] [id number] [place] [address]- 8619 Nov, [facility] [place] [facility] [address] [id number] [place] [address]- 6710 Nov, [facility] [place] [facility] [address] [id number] [place] [address]- 3769 Nov, [facility] [place] [facility] [address] [id number] [place] [address]- 6232 October, [facility] [place] [facility] [address] [id number] [place] [address]- 8024 October, [facility] [place] [facility] [address] [id number] [place] [address]- 7331 October, [facility] [place] [facility] [address] [id number] [place] [address]- 8803 October, [facility] [place] [facility] [address] [id number] [place] [address]- 3464 October, [facility] [place] [facility] [address] [id number] [place] [address]- 1281 October, [facility] [place] [facility] [address] [id number] [place] [address]- 5057 October, [facility] [place] [facility] [address] [id number] [place] [address]- 9367 October, [facility] [place] [facility] [address] [id number] [place] [address]- 6125 October, [facility] [place] [facility] [address] [id number] [place] [address]- 2116 October, [facility] [place] [facility] [address] [id number] [place] [address]- 7154 October, [facility] [place] [facility] [address] [id number] [place] [address]- 2679 October, [facility] [place] [facility] [address] [id number] [place] [address]- 4014 October, [facility] [place] [facility] [address] [id number] [place] [address]- 5580 October, [facility] [place] [facility] [address] [id number] [place] [address]- 5788 Sep, [facility] [place] [facility] [address] [id number] [place] [address]- 4964 17 Sep, 2013 [facility] [place] [facility] [address] [id number] [place] [address]- 5500 14 Sep, 2013 [facility] [place] [facility] [address] [id number] [place] [address]- 4319 14 Sep, 2013 [facility] [place] [facility] [address] [id number] [place] [address]- 3275 Sep, [facility] [place] [facility] [address] [id number] [place] [address]- 8527 Sep, [facility] [place] [facility] [address] [id number] [place] [address]- 3556 Sep, [facility] [place] [facility] [address] [id number] [place] [address]- 7397 Sep, [facility] [place] [facility] [address] [id number] [place] [address]- 8458 Sep, [facility] [place] [facility] [address] [id number] [place] [address]- 4353 Sep, [facility] [place] [facility] [address] [id number] [place] [address]- 0439 Sep, [facility] [place] [facility] [address] [id number] [place] [address]- 5050 Sep, [facility] [place] [facility] [address] [id number] [place] [address]- 0554 Sep, [facility] [place] [facility] [address] [id number] [place] [address]- 3726 Sep, [facility] [place] [facility] [address] [id number] [place] [address]- 4049 Sep, [facility] [place] [facility] [address] [id number] [place] [address]- 2991 Aug, [facility] [place] [facility] [address] [id number] [place] [address]- 6554 Aug, [facility] [place] [facility] [address] [id number] [place] [address]- 8597 Aug, [facility] [place] [facility] [address] [id number] [place] [address]- 1294 Aug, [facility] [place] [facility] [address] [id number] [place] [address]- 8989 Jul, [facility] [place] [facility] [address] [id number] [place] [address]- 1835 Jul, [facility] [place] [facility] [address] [id number] [place] [address]- 3364 Jul, [facility] [place] [facility] [address] [id number] [place] [address]- 9802 Jul, [facility] [place] [facility] [address] [id number] [place] [address]- 5679 Jun, [facility] [place] [facility] [address] [id number] [place] [address]- 2746 Jun, [facility] [place] [facility] [address] [id number] [place] [address]- 1511 Jun, [facility] [place] [facility] [address] [id number] [place] [address]- 8678 Jun, [facility] [place] [facility] [address] [id number] [place] [address]- 3320 Jun, [facility] [place] [facility] [address] [id number] [place] [address]- 1703 Jun, [facility] [place] [facility] [address] [id number] [place] [address]- 7565 Jun, [facility] [place] [facility] [address] [id number] [place] [address]- 1707 Jun, [facility] [place] [facility] [address] [id number] [place] [address]- 3691 May, [facility] [place] [facility] [address] [id number] [place] [address]- 1651 20 May, 2013 [facility] [address] [id number] [place] [address]- 1036 18 May, 2013 [facility] [address] [id number] [place] 7221 18 May, 2013 [facility] [address] [id number] [place] 7678 17 May, 2013 [facility] [address] [id number] [place] [address] 17 May, 2013 [facility] [address] [id number] [place] [address]- 7241 17 May, 2013 [facility] [address] [id number] [place] [address]- 6262 17 May, 2013 [facility] [address] [id number] [place] [address]- 6184 16 May, 2013 [facility] [address] [id number] [place] [address]- 4155 16 May, 2013 [facility] [address] [id number] [place] [address]- 0940 14 May, 2013 [facility] [address] [id number] [place] [address]- 1879 14 May, 2013 [facility] [address] [id number] [place] [address]- 6433 13 May, 2013 [facility] [address] [id number] [place] [address]- 6858 13 May, 2013 [facility] [address] [id number] [place] [address]- 4857 12 May, 2013 [facility] [address] [id number] [place] [address]- 4418 12 May, 2013 [facility] [address] [id number] [place] [address]- 2132 11 May, 2013 [facility] [place] [facility] [address] [id number] [place] [address] 2546 May, [facility] [address] [id number] [place] [address]- 8413 Apr, [facility] [address] [id number] [place] [address] 2546 Apr, [facility] [address] [id number] [place] [address]- 6686 Apr, [facility] [address] [id number] [place] [address]- 1818 Apr, [facility] [address] [id number] [place] [address]- 3597 Aug, [facility] [address] [id number] [place] [address]- 0876 Aug, [facility] [address] [id number] [place] [address]- 1185 Aug, [facility] [address] [id number] [place] [address]- 9744 05 Aug, 2012 [facility] [address] [id number] [place] [address]- 3088 Jul, [facility] [address] [id number] [place] [address]- 1810 Jun, [facility] [address] [id number] [place] [address]- 3111 Jun, [facility] [address] [id number] [place] [address]- 2546 Jun, [facility] [address] [id number] [place] [address]- 2546 Jun, [facility] [address] [id number] [place] [address]- 2546 May, [facility] [address] [id number] [place] [address]- 7133 May, [facility] [place] [facility] [address] [id number] [place] [address]- 7379 May, [facility] [place] [facility] [address] [id number] [place] [address]- 9418 May, [facility] [place] [facility] [address] [id number] [place] 9867 May, [facility] [place] [facility] [address] [id number] [place] [address]- 4484 May, [facility] [place] [facility] [address] [id number] [place] [address]- 2350 May, [facility] [place] [facility] [address] [id number] [place] [address]- 1587 Apr, [facility] [place] [facility] [address] [facility] [id number] [place] [address]- 2887 Apr, [facility] [place] [facility] [address] [id number], [place] [address]- 8181 Apr, [facility] [place] [facility] [address] [id number], [place] [address]- 1173 Apr, [facility] [place] [facility] [address] [id number], [place] [address]- 3142 Apr, [facility] [place] [facility] [address] [id number], [place] [address]- 7601 Apr, [facility] [place] [facility] [address] [id number], [place] [address]- 5594 Apr, [facility] [place] [facility] [address] [id number], [place] [address]- 7816 Mar, [facility] [place] [facility] [address] [id number], [place] [address]- 1082 Mar, [facility] [place] [facility] [address] [facility] [id number], [place] [address]- 8105 Mar, [facility] [place] [facility] [address] [id number] [place] [address] Mar, [facility] [place] [facility] [address] [id number] [place] [address] Mar, 2011 [facility] [place] [facility] [address] [id number] [place] [address] Mar, [facility] [place] [facility] [address] [id number] [place] [address] Mar, [facility] [place] [facility] [address] [id number] [place] [address] Mar, [facility] [place] [facility] [address] [id number] [place] [address] Mar, [facility] [place] [facility] [address] [id number] [place] [address] 133[address] Mar, [facility] [place] [facility] [address] [id number] [place] [address] Mar, [facility] [place] [facility] [address] [id number] [place] [address] Mar, [facility] [place] [facility] [address] [id number] [place] [address] Feb, [facility] [place] [facility] [address] [facility] [id number] [place] [address] Jan, [facility] [place] [facility] [address] [id number] [place] [address] 14 Jan, 2012 [facility] [place] [facility] [address] [id number] [place] [address] Jan, [facility] [place] [facility] [address] [id number] [place] [address]- [address] Jan, [facility] [place] [facility] [address] [id number] [place] [address]- [address] Jan, [facility] [place] [facility] [address] [facility] [id number] [place] [address]- [address] Dec, [facility] [place] [facility] [address] [id number] [place] [address] Dec, [facility] [address] [id number] [place] [address] Nov, [facility] [place] [facility] [address] [id number] [place] [address] Nov, [facility] [place] [facility] [address] [id number] [place] [address]- [address] Nov, [facility] [place] [facility] [address] [id number] [place] [address] October, [facility] [place] [facility] [address] [id number] [place] [address] October, [facility] [place] [facility] [address] [id number] [place] [address] October, [facility] [address] [id number] [place] [address] October, [facility] [place] [facility] [address] [id number] [place] [address] October, [facility] [place] [facility] [address] [id number] [place] [address] October, [facility] [place] [facility] [address] [id number] [place] [address] October, [facility] [place] [facility] [address] [id number] [place] [address]- [address] Sep, [facility] [place] [facility] [address] [id number] [place] [address] Sep, [facility] [place] [facility] [address] [id number] [place] [address] Sep, [facility] [place] [facility] [address] [id number] [place] [address] Sep, [facility] [place] [facility] [address] [id number] [place] [address]- [address] 24 Sep, 2011 [facility] [place] [facility] [address] [id number] [place] [address]- [address] 19 Sep, 2011 [facility] [place] [facility] [address] [id number] [place] [address]- 1226 17 Sep, 2011 [facility] [place] [facility] [address] [id number] [place] [address] 16 Sep, 2011 [facility] [place] [facility] [address] [id number] [place] [address]- [address] 16 Sep, 2011 [facility] [place] [facility] [address] [id number] [place] [address]- [address] 14 Sep, 2011 [facility] [place] [facility] [address] [id number] [place] [address]- [address] 13 Sep, 2011 [facility] [place] [facility] [address] [id number] [place] [address]- 7970 10 Sep, 2011 [facility] [place] [facility] [address] [id number] [place] [address]- [address] 09 Sep, 2011 [facility] [place] [facility] [address] [id number] [place] [address]- [address] 27 Aug, 2011 [facility] [place] [facility] [address] [id number] [place] [address]- 8728 Aug, [facility] [place] [facility] [address] [id number] [place] [address]- 1689 08 Aug, 2011 [facility] [place] [facility] [address] [id number] [place] [address]- 78[address] 06 Aug, 2011 [facility] [place] [facility] [address] [id number] [place] [address]- 10[address] 28 Jul, 2011 [facility] [place] [facility] [address] [id number] [place] [address]- 286[address] 22 Jul, 2011 [facility] [place] [facility] [address] [id number] [place] [address]- 1762 16 Jul, 2011 [facility] [place] [facility] [address] [id number] [place] [address]- 4036 15 Jul, 2011 [facility] [address] [id number] [place] [address]- [address]16 14 Jul, 2011 [facility] [place] [facility] [address] [id number] [place] [address]- [address] 10 Jul, 2011 [facility] [address] [id number] [place] [address]- 8966 30 Jun, 2011 [facility] [place] [facility] [address] [id number] [place] [address]- [address] Jun, [facility] [place] [facility] [address] [id number] [place] [address]- [address] Jun, [facility] [address] [id number] [place] [address]- [address]65 Jun, [facility] [address] [id number] [place] [address]- [address] Jun, [facility] [address] [id number] [place] [address]- [address] 27 May, 2011 [facility] [address] [id number] [place] [address]- 9[address] May, [facility] [address] [id number] [place] [address]- 2920 14 May, 2011 [facility] [place] [facility] [address] [id number] [place] [address]- 4410 14 May, 2011 [facility] [place] [facility] [address] [id number] [place] [address]- [address]284 12 May, 2011 [facility] [place] [facility] [address] [id number] [place] [address]- 9716 07 May, 2011 [facility] [place] [facility] [address] [id number] [place] [address]- [address]706 05 May, 2011 [facility] [place] [facility] [address] [id number] [place] [address]- [address] 15 Apr, 2011 [facility] [place] [facility] [address] [id number] [place] [address]- 1011 15 Apr, 2011 [facility] [place] [facility] [address] [id number] [place] [address]- 1773 Apr, [facility] [place] [facility] [address] [id number] [place] [address] Apr, [facility] [place] [facility] [address] [id number] [place] [address]- [address] Apr, [facility] [place] [facility] [address] [id number] [place] [address] Apr, [facility] [place] [facility] [address] [id number] [place] [address] Mar, [facility] [place] [facility] [address] [id number] [place] [address] Mar, [facility] [place] [facility] [address] [id number] [place] [address] Mar, [facility] [place] [facility] [address] [id number] [place] [address] Mar, [facility] [place] [facility] [address] [id number] [place] [address] Jan, [facility] [place] [facility] [address] [id number], [place] [address] Dec, [facility] [place] [facility] [address] [id number], [place] [address] Dec, [facility] [place] [facility] [address] [id number] [place] [address] October, [facility] [place] [facility] [address] [id number] [place] [address] 20 Sep, 2010 [facility] [place] [facility] [address] [id number] [place] [address] 14 Sep, 2010 [facility] [place] [facility] [address] [id number] [place] [address] 17 Jul, 2010 [facility] [address] [id number] [place] [address] 16 Jul, 2010 [facility] [address] [id number] [place] [address] 31 May, 2010 [facility] [address] [id number] [place] [address] 27 May, 2010 [facility] [address] [id number] [place] [address] 08 May, 2010 [facility] [address] [id number] [place] [address], [place] [address] May, [facility] [address] [id number] [place] [address] Apr, [facility] [address] [id number] [place] [address] Apr, [facility] [address] [id number] [place] [address] Apr, [facility] [address] [id number] [place] [address] Apr, [facility] [address] [facility] [id number] [place] [address] Apr, [facility] [address] [id number] [place] [address] Mar, [facility] [address] [id number] [place] [address] 14 Mar, 2010 [facility] [place] [facility] [address] [id number] [place] [address] 13 Mar, 2010 [facility] [place] [facility] [address] [facility] [id number] [place] [address] 12 Mar, 2010 [facility] [place] [facility] [address] [id number] [place] [address] Jan, [facility] [id number] [address] Dec, [facility] [id number] [address] Sep, [facility] [id number], [place] [address] May, [facility] [id number], [place] [address] May, [facility] [id number] [address] May, [facility] [id number] [address] Apr, [facility] [id number] [address] Apr, [facility] [id number], [place] [address] Apr, [facility] [id number], [place] [address] Apr, [facility] [id number], [place] [address] Apr, [facility] [id number], [place] [address] Mar, [facility] [id number], [place] [address] Mar, [facility] [address] [id number], [place] [address] Jul, IMMUNIZATIONS No Known Immunizations SOCIAL HISTORY [...] [facility] 12/20/15 Hospitalization [facility] [place]- Abd pain 03/07/2017 Hospitalization History [facility] [place]- Abd pain 03/14/2017 Hospitalization History [facility] [place]- No bowel movement, rash 04/13/2017 Hospitalization History [facility] [place]- Abd pain r/t kidney surgery on 04/17/2017 Hospitalization History [facility] [place]- Abd pain r/t kidney surgery on 04/18/2017 Hospitalization History [facility] [place]- Lower abd pain 04/30/2017 Hospitalization History [facility] [place]- Cannot urinate 05/30/2017 Hospitalization History [facility] [place]- Pancreatitis Sx 06/29/2017 [facility]ization [facility] [place]- Stomach pain 07/22/2017 Hospitalization History [facility] [place]- Left side pain 08/12/2017 Hospitalization History [facility] [place]- Incision site infection 08/30/2017 Hospitalization History [facility]- Post Op Seroma/Hematoma Left Abdomen. Discharged 09/04/17- Dr Daniel 09/02/2017 Hospitalization History [facility] [place]- Right shoulder and back pain 2017 Hospitalization History [facility] [place]- Shoulder/Back pain 11/11/2017 Hospitalization History [facility] [place]- Right shoulder blade pain 12/04/2017 Hospitalization History [facility] [place]- C-Diff 12/13/2017 Hospitalization History C diff et MRSA 12/27/2017
--- OUTSIDE RECORDS SUMMARY | 2018-10-22 07:21 | XMS REPORT ---
Author Author Migration, Doctor Organization [facility] Address Unknown Phone Unavailable Care Team Providers Care Central Supply Technician Supervisor Name Role Phone Migration, Doctor Unavailable Unavailable PROBLEMS Type Condition ICD9-CM Code QHX48-US Code Onset Dates Condition Status SNOMED Code Problem Chronic tension-type headache, intractable G44.221 Active 532504883 Problem Right carpal tunnel syndrome G56.01 Active 016577817707107 Problem Hyperlipidemia, mixed E78.2 Active 369037625 Problem Morbid (severe) obesity due to excess calories E66.01 Active 499641791 Problem FH: polycystic ovary Z84.2 Active 216115366 Problem Hirsuties L68.0 Active 829134613 Problem Asthma J45.909 Active 417292461 Problem Chronic pancreatitis K86.1 Active 620827538 Problem Trichotillomania F63.3 Active 49392019 Problem Restless leg syndrome G25.81 Active 45383837 Problem Generalized social phobia F40.11 Active 01461842 Problem Primary osteoarthritis of right knee M17.11 Active 279488763648170 Problem Atelectasis J98.11 Active 75302379 Problem History of renal cell carcinoma Z85.528 Active 140965425 Problem Obesities, morbid E66.01 Active 689519052 Problem Polydipsia R63.1 Active 21043196 Problem Nodule of left lung R91.1 Active 708139137 Problem Chronic post-traumatic stress disorder (PTSD) F43.12 Active 921416237 Problem Moderate episode of recurrent major depressive disorder F33.1 Active 600640328 Problem Chronic fatigue R53.82 Active 59117372 Problem Intestinal malabsorption, unspecified K90.9 Active 74298302 ALLERGIES No Information ENCOUNTERS Encounter Location Date Diagnosis [facility] [address] [facility] [id number] [address] October, [facility] [address] [facility] [id number] [address] October, [address] [address] Sep, [facility] [address] [facility] [id number] [place] [address] Sep, [facility] [address] [facility] [id number] [address] Sep, [facility] [address] [facility] [id number] [place] [address] Sep, [facility] [address] [facility] [id number] [place] [address]134- 5459 Sep, Lower extremity edema R60.0 [facility] [address] [facility] [id number] [place] [address] 70831- 6489 Sep, [facility] [address] [facility] [id number] [address] Sep, Lower extremity edema R60.0 and Morbid obesity E66.01 [facility] [address] [facility] [id number] [place] [address] Sep, [facility] [address] [facility] [id number] [place] [address] Sep, [facility] [address] [facility] [id number] [place] [address] Aug, [facility] [address] [facility] [id number] [place] [address] Aug, Obesities, morbid E66.01 and Morbid obesity E66.01 [facility] [address] [facility] [id number] [place] [address] Aug, [facility] [address] [place] [address] Jul, [facility] [address] [facility] [id number] [place] [address] Jul, [facility] [address] [address] Jul, [facility] [address] [address] Jul, Numbness of right hand R20.0 [facility] [address] [place] [id number] [place] [address] 48421- 7043 Jul, [facility] [address] [id number] [place] [address] 83475- 5952 Jul, Numbness of right hand R20.0 [facility] [address] [address] [id number] [place] [address] 75608- 8098 Jul, [facility] [address] [id number] [place] [address] 01228- 5225 Jul, [facility] [address] [id number] [place] [address] 85342- 3919 Jul, Right-sided thoracic back pain M54.6 [facility] [address] [place] [id number] [place] [address] 01982- 0114 Jul, [facility] [address] [address] [id number] [place] [address] 45331- 1611 Jul, [facility] [address] [place] [address] 05593- 8935 Jul, [facility] [address] [address] Jul, [facility] [address] [place] [address] 98180- 0441 Jun, [facility] [address] [place] [address] 55410- 4731 Jun, Acute pain of right shoulder M25.511 ; Numbness of right hand R20.0 and Trapezius muscle spasm M62.838 [facility] [address] [address] Jun, [facility] [address] [place] [id number] [place] [address] 57129- 6265 Jun, [facility] [address] [address] [id number] [place] [address] 17764- 1775 Jun, Cough R05 ; BMI 50.0-59.9, adult Z68.43 and Morbid obesity E66.01 [facility] [address] [place] [id number] [place] [address] 06536- 5353 Jun, [facility] [address] [address] Jun, [facility] [id number] [place] [address] 36481 -7569 Jun, BMI 45.0-49.9, adult Z68.42 and Acute non-recurrent maxillary sinusitis J01.00 [facility] [address] [id number] [place] [address] 09432 [address]76 Jun, Acute sinusitis J01.90 ; Dysuria R30.0 and BMI 45.0-49.9, adult Z68.42 [facility] [address] [id number] [place] [address] 25958- 8265 Jun, [facility] [id number] [place] [address] 78061- 5691 Jun, [facility] [id number] [place] [address] 22778- 5525 May, [facility] [id number] [place] [address] 97545- 8118 May, [facility] [id number] [place] [address] 89477- 5088 May, [facility] [id number] [place] [address] 59845- 7647 May, [facility] [id number] [place] [address] 24579- 1670 May, [facility] [id number] [place] [address] 89387- 1804 Apr, Generalized social phobia F40.11 ; Trichotillomania F63.3 ; Chronic post-traumatic stress disorder (PTSD) F43.12 and BMI 45.0-49.9, adult Z68.42 [place] [address] [place] [id number] [place] [address] 17478- 2265 Apr, [place] [address] [place] [id number] [place] [address] 33796- 9316 Apr, Chronic tension-type headache, intractable G44.221 [place] [address] 24043- 3656 Apr, [facility] [place] [address] [address] Mar, [facility] [place] [address] 15[address] -[address]62 Mar, BMI 45.0-49.9, adult Z68.42 and Pimples R23.8 [place] [address] [place] [id number] [place] [address] 78129- 3740 Mar, [place] [address] [place] [id number] [place] [address] 29907- 2790 Mar, [place] [address] [id number] [place] [address] 30562- 1395 Mar, Decreased urination R34 ; Chronic fatigue R53.82 ; Peripheral edema R60.9 ; Diarrhea, unspecified type R19.7 ; Non-intractable vomiting with nausea, unspecified vomiting type R11.2 ; BMI 45.0-49.9, adult Z68.42 and Chronic post-traumatic stress disorder (PTSD) F43.12 [place] [address] [place] [id number] [place] [address] 65597- 8215 Mar, Intestinal malabsorption, unspecified K90.9 ; Diarrhea, unspecified R19.7 ; Urinary urgency R39.15 ; Rectal bleeding K62.5 and Decreased urine output R34 [place] [address] [place] [id number] [place] [address] 87968- 4154 Mar, Decreased urine output R34 [facility] [id number] [place] [address] 67627- 3009 Mar, Rectal bleeding K62.5 [facility] [id number] [place] [address] 96117- 6204 Mar, Rectal bleeding K62.5 [facility] [id number] [place] [address] 22224- 1971 Mar, Urinary urgency R39.15 [facility] [address] [address] [id number] [place] [address] 64209- 4724 Mar, Urinary urgency R39.15 [facility] [address] [place] [address] [id number] [place] [address] 66026- 1223 Mar, Primary osteoarthritis of right knee M17.11 and BMI 45.0- 49.9, adult Z68.42 [facility] [id number] [place] [address] 35436- 1810 Mar, [facility] [address] [place] [address] [id number] [place] [address] 93897- 9504 Feb, Left upper arm pain M79.622 [facility] [address] [address] [id number] [place] [address] 45967- 3274 Feb, [facility] [id number] [place] [address] 55950- 0105 Jan, Acute pain of right knee M25.561 ; Right upper quadrant abdominal pain R10.11 and BMI 45.0-49.9, adult Z68.42 [facility] [id number] [place] [address] 36767- 6673 Jan, [facility] [id number] [place] [address] 37555- 1586 Jan, [facility] [id number] [place] [address] 87740- 1123 Dec, [facility] [address] [address]- 2340 Dec, Intestinal malabsorption, unspecified K90.9 and Diarrhea, unspecified R19.7 [facility] [address] [address]- 6510 Dec, [facility] [id number] [place] [address] 57846- 9516 Dec, Strep throat J02.0 ; Intestinal malabsorption, unspecified K90.9 ; Diarrhea, unspecified R19.7 ; Postoperative seroma involving digestive system after non-digestive system procedure K91.873 ; Hyperlipidemia, mixed E78.2 and BMI 45.0-49.9, adult Z68.42 [facility] [address] [place] [address] 17809- 7295 Dec, [facility] [id number] [place] [address] 02884- 4238 Dec, Nausea R11.0 [facility] [id number] [place] [address] 80238- 4112 Dec, [facility] [address] [place] [address] 96097 -7712 Dec, Sore throat J02.9 ; Strep throat J02.0 and BMI 45.0-49.9, adult Z68.42 [facility] [address] [address]- 9737 Dec, [facility] [address] [address]- 3797 Dec, [facility] [id number] [place] [address] 94284- 0930 Dec, [facility] [address] [place] [address] 62920- 1073 Dec, [facility] [id number] [place] [address] 47285- 3157 Dec, [facility] [id number] [place] [address] 51996- 9746 Dec, [facility] [id number] [place] [address] 96619- 6762 Dec, [facility] [id number] [place] [address] 54026- 3132 Dec, [facility] [id number] [place] [address] 00608- 8692 Dec, Clostridium difficile colitis A04.72 ; Intractable vomiting with nausea, unspecified vomiting type R11.2 and BMI 45.0-49.9, adult Z68.42 [place] [address] [id number] [place] [address] 85200- 0513 Dec, [facility] [id number] [place] [address] 26560- 3948 Nov, [facility] [id number] [place] [address] 93122- 9460 Nov, [facility] [id number] [place] [address] 93917- 4683 Nov, [facility] [id number] [place] [address] 42281- 7185 Nov, [facility] [id number] [place] [address] 23729 -4178 Nov, [facility] [id number] [place] [address] 27164- 9116 Nov, Hyperlipidemia, mixed E78.2 [facility] [address] [address]447 Nov, Acute suppurative otitis media of right ear without spontaneous rupture of tympanic membrane, recurrence not specified H66.001 and BMI 45.0-49.9, adult Z68.42 [facility] [address] 26998- 0587 Nov, Hyperlipidemia, mixed E78.2 [place] [address] [address]- 4188 Nov, [place] [address] [place] [address] 03615- 7050 Nov, [place] [id number] [place] [address] 50289- 2392 Nov, Nodule of left lung R91.1 [place] [address] [place] [address] 05737- 4885 Nov, Medicare annual wellness visit, initial Z00.00 [...] adult Z68.42 and Encounter for immunization Z23 [place] [id number] [place] [address] 49327- 7882 October, [place] [id number] [place] [address] 67888- 4232 October, Nodule of left lung R91.1 [place] [address] [id number] [place] [address] 13832- 5809 October, Nodule of left lung R91.1 [place] [address] [place] [address] 87084- 1036 October, Recurrent major depressive disorder, in partial remission F33.41 ; Restless leg syndrome G25.81 ; Generalized social phobia F40.11 ; Chronic post-traumatic stress disorder (PTSD) F43.12 ; BMI 45.0-49.9, adult Z68.42 and Trichotillomania F63.3 [address] [address]- 1851 October, [facility] [id number] [place] [address] 41281- 9227 Sep, Chronic fatigue R53.82 and BMI 45.0-49.9, adult Z68.42 [facility] [id number] [place] [address] 63289- 3136 Aug, [facility] [id number] [place] [address] 67794- 9449 Jul, Restless leg syndrome G25.81 and B12 deficiency E53.8 [facility] [id number] [place] [address] 95114- 6526 Jul, [facility] [id number] [place] [address] 66924- 6476 Jul, [facility] [id number] [place] [address] 49282- 8643 Jun, [facility] [id number] [place] [address] 05963- 6616 Jun, Fatigue, unspecified type R53.83 ; History of renal cell carcinoma Z85.528 ; Chronic pancreatitis K86.1 ; Restless leg syndrome G25.81 ; Dark urine R82.99 and BMI 45.0-49.9, adult Z68.42 [facility] [id number] [place] [address] 75767- 0819 Jun, [facility] [address] [place] [address] 57762- 1125 Jun, [facility] [id number] [place] [address] 22449- 6313 Jun, [facility] [id number] [address]- 7196 Jun, [facility] [id number] [place] [address] 69384- 7413 May, Chronic post-traumatic stress disorder (PTSD) F43.12 ; Moderate episode of recurrent major depressive disorder F33.1 ; Trichotillomania F63.3 and Generalized social phobia F40.11 [place] [address] [address]- 4491 May, [place] [address] [address]- 7915 May, Chronic post-traumatic stress disorder (PTSD) F43.12 ; Moderate episode of recurrent major depressive disorder F33.1 ; Trichotillomania F63.3 and Generalized social phobia F40.11 [place] [address] [place] [address] 78973- 2561 May, Hyperlipidemia, mixed E78.2 ; Morbid (severe) obesity due to excess calories E66.01 ; Chronic post-traumatic stress disorder (PTSD) F43.12 ; Moderate episode of recurrent major depressive disorder F33.1 ; Trichotillomania F63.3 and Generalized social phobia F40.11 [place] [address] [address]- 3692 Apr, [place] [address] [id number] [place] [address] 44844- 2486 Apr, Hyperlipidemia, mixed E78.2 ; Morbid (severe) obesity due to excess calories E66.01 ; Chronic post-traumatic stress disorder (PTSD) F43.12 ; Moderate episode of recurrent major depressive disorder F33.1 ; Trichotillomania F63.3 and Generalized social phobia F40.11 [place] [address] [address]- 1999 Apr, Trichotillomania F63.3 ; Generalized social phobia F40.11 ; Chronic post-traumatic stress disorder (PTSD) F43.12 and Moderate episode of recurrent major depressive disorder F33.1 [place] [address] [address]- 7200 Apr, [place] [id number] [place] [address] 96274- 9153 Apr, [place] [address] [id number] [place] [address] 39451- 9701 Mar, Moderate episode of recurrent major depressive disorder F33.1 ; Trichotillomania F63.3 ; Chronic post-traumatic stress disorder (PTSD) F43.12 ; Generalized social phobia F40.11 and Restless leg syndrome G25.81 [place] [address] 55176- 4646 Mar, [place] [address] 92775- 5889 Mar, [place] [address] 53846- 5325 Feb, Left kidney mass N28.[address] 32156- 9206 Jan, [place] [address] [id number] [place] [address] 84982- 4550 Dec, Polydipsia R63.1 ; Chronic pancreatitis K86.1 and Fatigue, unspecified type R53.83 [place] [id number] [place] [address] 64399- 7084 Nov, [place] [address] [id number] [place] [address] 58510- 9659 Nov, [place] [address] [id number] [place] [address] 27881- 1471 Nov, Headache around the eyes R51 [place] [address] [id number] [place] [address] 36369- 6230 Nov, [place] [address] [id number] [place] [address] 55895- 4589 October, STD exposure Z20.[address] 38298- 8533 October, STD exposure Z20.2 [place] [address] [id number] [place] [address] 47817- 8343 October, Chronic post-traumatic stress disorder (PTSD) F43.12 ; Generalized social phobia F40.11 ; Trichotillomania F63.3 and Restless leg syndrome G25.81 [place] [address] [id number] [place] [address] 18817- 9976 October, [facility] [id number] [place] [address] 39328- 3988 Sep, [place] [address] [id number] [place] [address] 42795- 5165 Aug, [place] [address] [id number] [place] [address] 67702- 9232 Aug, [place] [address] [id number] [place] [address] 71741- 9183 Aug, Neck mass R22.1 [place] [address] [id number] [place] [address] 64921- 5999 Aug, Atelectasis J98.11 [place] [address] [id number] [place] [address] 93888- 1682 28 Jul, 2016 Hyperlipidemia, mixed E78.2 ; Atypical pneumonia J18.9 and Neck mass R22.1 [place] [address] [id number] [place] [address] 16795- 2624 15 Jul, 2016 Hemoptysis R04.2 [place] [address] [id number] [place] [address] 26101- 7157 08 Jul, 2016 Acute non-recurrent pansinusitis J01.40 ; Hemoptysis R04.2 ; Polydipsia R63.1 and Malaise R53.81 [facility] [address] [address] May, Other viral agents as the cause of diseases classified elsewhere B97.89 and Acute upper respiratory infection, unspecified J06.9 [facility] [address] [address]1564 Mar, Nausea R11.0 [facility] [place] [address] [id number] [place] [address] 95667 -6757 28 Dec, 2015 Hives L50.9 [place] [id number] [place] [address] 00079- 8736 14 Dec, 2015 [facility] [place] [address] [place] [id number] [place] [address]37 Dec, Cutaneous abscess of limb, unspecified L02.419 ; Cellulitis of unspecified part of limb L03.119 ; Encounter for incision and drainage procedure Z01.89 and Encounter for recheck of abscess following incision and drainage Z09 [facility] [place] [address] [place] [id number] [place] [phone] -[phone] Dec, Abscess of leg, right L02.415 [place] [address] [place] [id number] [place] [address] 04091- 2661 Dec, Cellulitis of unspecified part of limb L03.119 and Cutaneous abscess of limb, unspecified L02.419 [place] [address] [place] [id number] [place] [address] 68133- 9193 Dec, [place] [address] [place] [id number] [place] [address] [phone]- [phone] Dec, [facility] [place] [address] [place] [id number] [place] [address]8 -7095 Aug, [place] [address] [place] [id number] [place] [address] [phone]- [phone] Aug, [facility] [place] [address] [place] [id number] [place] [address] [phone] -[phone] 04 Jul, 2015 Pain in unspecified wrist M25.539 and Back pain, thoracic M54.6 [facility] [place] [address] [place] [id number] [place] [address] 9[address]36 -2400 Jun, Strain of right wrist, initial encounter S66.911A [place] [address] [address] Jun, Chronic pancreatitis, unspecified pancreatitis type K86.1 ; Hirsuties L68.0 ; Morbid (severe) obesity due to excess calories E66.01 ; Chronic pancreatitis K86.1 and Asthma J45.909 [place] [address] [address] May, [place] [address] [address]- [address] May, Hyperlipidemia, mixed E78.2 and Muscle spasm of back M62.[address] [address] Apr, [address] [address]- [address] Apr, Torticollis M43.6 [place] [address] [address]- 6432 Apr, Right-sided thoracic back pain M54.6 [place] [address] [place] [id number] [place] [address] 41592- [phone] Mar, Rash R21 [place] [address] [place] [id number] [place] [address] 84733- 8075 Mar, [place] [address] [place] [id number] [place] [address] 49459- 7136 Jan, [place] [address] [address]- [address] Dec, [place] [address] [address]- [address] Dec, Urinary frequency 788.41 and Nocturia more than twice per night 788.43 [place] [place] [address] [address] Nov, [facility] [id number] [address] Nov, [facility] [id number] [address] Nov, Abdominal pain 789.00 [facility] [id number] [address] October, TDAP DX V06.1 [facility] [id number] [address] October, [facility] [id number] [place] [address] October, Disturbance of skin sensation 782.0 ; Wrist pain, right 719.43 ; Hyperlipidemia 272.4 and Skin lesion of face 709.9 [facility] [id number] [address] Sep, [facility] [id number] [address] Sep, [facility] [id number] [address] Aug, [facility] [id number] [address] Aug, [facility] [id number] [address] Aug, [facility] [id number] [address]- [address] 23 Aug, 2014 [facility] [id number] [address] Aug, [facility] [id number] [address] 4836 16 Aug, 2014 [facility] [id number] [address] 14 Aug, 2014 [facility] [place] [facility] [address] [id number] [place] [address]- 7728 14 Aug, 2014 [facility] [place] [facility] [address] [id number] [place] [address]- 8316 Aug, [facility] [place] [facility] [address] [id number] [place] [address]- 0847 Aug, [facility] [place] [facility] [address] [id number] [place] [address]- 7725 Aug, [facility] [place] [facility] [address] [id number] [place] [address]- 2299 Aug, [facility] [place] [facility] [address] [id number] [place] [address]- 5200 Aug, [facility] [place] [facility] [address] [id number] [place] [address]- 4868 Aug, [facility] [place] [facility] [address] [id number] [place] [address]- 1197 Jul, [facility] [place] [facility] [address] [id number] [place] [address]- 9018 Jul, [facility] [place] [facility] [address] [id number] [place] [address]- 7213 Jul, [facility] [place] [facility] [address] [id number] [place] [address]- 4251 Jul, [facility] [place] [facility] [address] [id number] [address] 1167 Jul, [facility] [place] [facility] [address] [id number] [place] [address]- 8672 Jul, [facility] [place] [facility] [address] [id number] [place] [address]- 2709 Jun, [facility] [place] [facility] [address] [id number] [place] [address]- 6327 Jun, [facility] [place] [facility] [address] [id number] [place] [address]- 0417 Jun, [facility] [address] [id number] [place] [address]- 6390 Jun, [facility] [address] [id number] [place] [address]- 9010 Jun, [facility] [address] [id number] [place] [address]- 5932 Jun, [facility] [address] [id number] [place] [address]- 3414 15 Jun, 2014 [facility] [address] [id number] [place] [address]- 7766 15 Jun, 2014 [facility] [address] [id number] [place] [address]- 6121 May, [facility] [address] [id number] [place] [address]- 5483 May, [facility] [address] [id number] [place] [address]- 5359 May, [facility] [address] [id number] [place] [address]- 2527 May, [facility] [address] [id number] [place] [address]- 8582 15 May, 2014 [facility] [place] [facility] [address] [id number] [place] [address]- 6082 15 May, 2014 [facility] [address] [id number] [place] [address]- 7758 May, [facility] [place] [facility] [address] [id number] [place] [address]- 9593 May, [facility] [place] [facility] [address] [id number] [place] [address]- 0445 May, [facility] [address] [id number] [place] [address]- 6797 May, [facility] [place] [facility] [address] [id number] [place] [address]- 7166 May, [facility] [place] [facility] [address] [id number] [place] [address]- 6311 May, [facility] [place] [facility] [address] [id number] [place] [address]- 0824 Apr, [facility] [place] [facility] [address] [id number] [place] [address]- 3501 Apr, [facility] [place] [facility] [address] [id number] [place] [address]- 2992 Apr, [facility] [place] [facility] [address] [id number] [place] [address]- 7864 Apr, [facility] [place] [facility] [address] [id number] [place] [address]- 6087 Apr, [facility] [place] [facility] [address] [id number] [place] [address]- 5449 Apr, [facility] [place] [facility] [address] [id number] [place] [address]- 7166 Apr, [facility] [place] [facility] [address] [id number] [place] [address]- 8381 Apr, [facility] [place] [facility] [address] [id number] [address]- 9334 Apr, [facility] [place] [facility] [address] [id number] [address]- 9586 Apr, [facility] [place] [facility] [address] [id number] [place] [address]- 1982 Apr, [facility] [place] [facility] [address] [id number] [place] [address]- 9423 Apr, [facility] [place] [facility] [address] [id number] [place] [address]- 2440 14 Mar, 2014 [facility] [place] [facility] [address] [id number] [place] [address]- 1875 Mar, [facility] [place] [facility] [address] [id number] [place] [address]- 6153 Mar, [facility] [place] [facility] [address] [id number] [place] [address]- 3601 Mar, [facility] [place] [facility] [address] [id number] [place] [address]- 0558 Feb, [facility] [place] [facility] [address] [id number] [place] [address]- 2865 Feb, [facility] [place] [facility] [address] [id number] [place] [address]- 0959 Feb, [facility] [place] [facility] [address] [id number] [place] [address]- 2077 Feb, [facility] [place] [facility] [address] [id number] [place] [address]- 2130 Feb, [facility] [place] [facility] [address] [id number] [place] [address]- 9371 Feb, [facility] [place] [facility] [address] [id number] [place] [address]- 8522 Jan, [facility] [place] [facility] [address] [id number] [place] [address]- 8033 Jan, [facility] [place] [facility] [address] [id number] [place] [address]- 6462 Jan, [facility] [place] [facility] [address] [id number] [place] [address]- 6742 Jan, [facility] [place] [facility] [address] [id number] [place] [address]- 9890 Jan, [facility] [place] [facility] [address] [id number] [place] [address]- 8253 Jan, [facility] [place] [facility] [address] [id number] [place] [address]- 1323 Jan, [facility] [place] [facility] [address] [id number] [place] [address]- 9325 Jan, [facility] [place] [facility] [address] [id number] [facility] [place] [address]- 1420 Jan, [facility] [place] [facility] [address] [id number] [place] [address]- 6838 Jan, [facility] [place] [facility] [address] [id number] [place] [address]- 2817 Jan, [facility] [place] [facility] [address] [id number] [place] [address]- 4937 Jan, [facility] [place] [facility] [address] [id number] [place] [address]- 2020 Jan, [facility] [place] [facility] [address] [id number] [place] [address]- 7255 Jan, [facility] [place] [facility] [address] [id number] [place] [address]- 8961 Dec, [facility] [place] [facility] [address] [id number] [place] [address]- 9855 Dec, [facility] [place] [facility] [address] [id number] [place] [address]- 2260 Dec, [facility] [place] [facility] [address] [id number] [place] [address]- 0609 Dec, [facility] [place] [facility] [address] [id number] [place] [address]- 4614 Nov, [facility] [place] [facility] [address] [id number] [place] [address]- 4963 Nov, [facility] [place] [facility] [address] [id number] [place] [address]- 5909 Nov, [facility] [place] [facility] [address] [id number] [place] [address]- 0867 Nov, [facility] [place] [facility] [address] [id number] [place] [address]- 2264 Nov, [facility] [place] [facility] [address] [id number] [place] [address]- 9834 October, [facility] [place] [facility] [address] [id number] [place] [address]- 9922 October, [facility] [place] [facility] [address] [id number] [place] [address]- 1411 October, [facility] [place] [facility] [address] [id number] [place] [address]- 2562 October, [facility] [place] [facility] [address] [id number] [place] [address]- 9120 October, [facility] [place] [facility] [address] [id number] [place] [address]- 7919 October, [facility] [place] [facility] [address] [id number] [place] [address]- 0497 October, [facility] [place] [facility] [address] [id number] [place] [address]- 2861 October, [facility] [place] [facility] [address] [id number] [place] [address]- 3936 October, [facility] [place] [facility] [address] [id number] [place] [address]- 9009 October, [facility] [place] [facility] [address] [id number] [place] [address]- 3708 October, [facility] [place] [facility] [address] [id number] [place] [address]- 2927 October, [facility] [place] [facility] [address] [id number] [place] [address]- 4422 October, [facility] [place] [facility] [address] [id number] [place] [address]- 9160 October, [facility] [place] [facility] [address] [id number] [place] [address]- 4465 Sep, [facility] [place] [facility] [address] [id number] [place] [address]- 7401 17 Sep, 2013 [facility] [place] [facility] [address] [id number] [place] [address]- 0374 14 Sep, 2013 [facility] [place] [facility] [address] [id number] [place] [address]- 5926 14 Sep, 2013 [facility] [place] [facility] [address] [id number] [place] [address]- 5859 Sep, [facility] [place] [facility] [address] [id number] [place] [address]- 2893 Sep, [facility] [place] [facility] [address] [id number] [place] [address]- 0080 Sep, [facility] [place] [facility] [address] [id number] [place] [address]- 6961 Sep, [facility] [place] [facility] [address] [id number] [place] [address]- 1761 Sep, [facility] [place] [facility] [address] [id number] [place] [address]- 2000 Sep, [facility] [place] [facility] [address] [id number] [place] [address]- 3679 Sep, [facility] [place] [facility] [address] [id number] [place] [address]- 1911 Sep, [facility] [place] [facility] [address] [id number] [place] [address]- 9068 Sep, [facility] [place] [facility] [address] [id number] [place] [address]- 4771 Sep, [facility] [place] [facility] [address] [id number] [place] [address]- 2286 Sep, [facility] [place] [facility] [address] [id number] [place] [address]- 4149 Aug, [facility] [place] [facility] [address] [id number] [place] [address]- 7695 Aug, [facility] [place] [facility] [address] [id number] [place] [address]- 9006 Aug, [facility] [place] [facility] [address] [id number] [place] [address]- 3366 Aug, [facility] [place] [facility] [address] [id number] [place] [address]- 4569 Jul, [facility] [place] [facility] [address] [id number] [place] [address]- 6225 Jul, [facility] [place] [facility] [address] [id number] [place] [address]- 1829 Jul, [facility] [place] [facility] [address] [id number] [place] [address]- 7215 Jul, [facility] [place] [facility] [address] [id number] [place] [address]- 2256 Jun, [facility] [place] [facility] [address] [id number] [place] [address]- 3457 Jun, [facility] [place] [facility] [address] [id number] [place] [address]- 5873 Jun, [facility] [place] [facility] [address] [id number] [place] [address]- 5748 Jun, [facility] [place] [facility] [address] [id number] [place] [address]- 2843 Jun, [facility] [place] [facility] [address] [id number] [place] [address]- 9583 Jun, [facility] [place] [facility] [address] [id number] [place] [address]- 9880 Jun, [facility] [place] [facility] [address] [id number] [place] [address]- 4183 Jun, [facility] [place] [facility] [address] [id number] [place] [address]- 7881 May, [facility] [place] [facility] [address] [id number] [place] [address]- 1098 20 May, 2013 [facility] [address] [id number] [place] [address]- 8455 18 May, 2013 [facility] [address] [id number] [place]24 18 May, 2013 [facility] [address] [id number] [place]111 17 May, 2013 [facility] [address] [id number] [place] [id number] 17 May, 2013 [facility] [address] [id number] [place] [address]- 8627 17 May, 2013 [facility] [address] [id number] [place] [address]- 0136 17 May, 2013 [facility] [address] [id number] [place] [address]- 2544 16 May, 2013 [facility] [address] [id number] [place] [address]- 5148 16 May, 2013 [facility] [address] [id number] [place] [address]- 1070 14 May, 2013 [facility] [address] [id number] [place] [address]- 7383 14 May, 2013 [facility] [address] [id number] [place] [address]- 6250 13 May, 2013 [facility] [address] [id number] [place] [address]- 3615 13 May, 2013 [facility] [address] [id number] [place] [address]- 9544 12 May, 2013 [facility] [address] [id number] [place] [address]- 9166 12 May, 2013 [facility] [address] [id number] [place] [address]- 1824 11 May, 2013 [facility] [place] [facility] [address] [id number] [place] [address] 2546 May, [facility] [address] [id number] [place] [address]- 3299 Apr, [facility] [address] [id number] [place] [address] 2546 Apr, [facility] [address] [id number] [place] [address]- 2296 Apr, [facility] [address] [id number] [place] [address]- 0573 Apr, [facility] [address] [id number] [place] [address]- 9518 Aug, [facility] [address] [id number] [place] [address]- 3866 Aug, [facility] [address] [id number] [place] [address]- 3668 Aug, [facility] [address] [id number] [place] [address]- 0934 05 Aug, 2012 [facility] [address] [id number] [place] [address]- 9674 Jul, [facility] [address] [id number] [place] [address]- 6758 Jun, [facility] [address] [id number] [place] [address]- 3494 Jun, [facility] [address] [id number] [place] [address]- 2546 Jun, [facility] [address] [id number] [place] [address]- 2546 Jun, [facility] [address] [id number] [place] [address]- 2546 May, [facility] [address] [id number] [place] [address]- 0524 May, [facility] [place] [facility] [address] [id number] [place] [address]- 9540 May, [facility] [place] [facility] [address] [id number] [place] [address]- 5340 May, [facility] [place] [facility] [address] [id number] [place] 4457 May, [facility] [place] [facility] [address] [id number] [place] [address]- 2757 May, [facility] [place] [facility] [address] [id number] [place] [address]- 4543 May, [facility] [place] [facility] [address] [id number] [place] [address]- 1212 Apr, [facility] [place] [facility] [address] [facility] [id number] [place] [address]- 0334 Apr, [facility] [place] [facility] [address] [id number] [address]- 6783 Apr, [facility] [place] [facility] [address] [id number] [place] [address]- 7739 Apr, [facility] [place] [facility] [address] [id number] [place] [address]- 9618 Apr, [facility] [place] [facility] [address] [id number] [place] [address]- 4093 Apr, [facility] [place] [facility] [address] [id number] [place] [address]- 4202 Apr, [facility] [place] [facility] [address] [id number] [place] [address]- 3966 Mar, [facility] [place] [facility] [address] [id number] [place] [address]- 7547 Mar, [facility] [place] [facility] [address] [facility] [id number] [place] [address]- 6031 Mar, [facility] [place] [facility] [address] [id number] [place] [address]- 3712 Mar, [facility] [place] [facility] [address] [id number] [place] [address]- 1217 Mar, 2011 [facility] [place] [facility] [address] [id number] [place] [address]- 5629 Mar, [facility] [place] [facility] [address] [id number] [place] [address]- 0832 Mar, [facility] [place] [facility] [address] [id number] [place] [address]- 6981 Mar, [facility] [place] [facility] [address] [id number] [place] [address] Mar, [facility] [place] [facility] [address] [id number] [place] [address] Mar, [facility] [place] [facility] [address] [id number] [place] [address] Mar, [facility] [place] [facility] [address] [id number] [place] [address] Mar, [facility] [place] [facility] [address] [id number] [place] [address] Feb, [facility] [place] [facility] [address] [facility] [id number] [place] [address] Jan, [facility] [place] [facility] [address] [id number] [place] [address] 14 Jan, 2012 [facility] [place] [facility] [address] [id number] [place] [address] Jan, [facility] [place] [facility] [address] [id number] [place] [address] Jan, [facility] [place] [facility] [address] [id number] [place] [address] Jan, [facility] [place] [facility] [address] [facility] [id number] [place] [address] Dec, [facility] [place] [facility] [address] [id number] [place] [address] Dec, [facility] [address] [id number] [place] [address] Nov, [facility] [place] [facility] [address] [id number] [place] [address] Nov, [facility] [place] [facility] [address] [id number] [place] [address] 164[address] Nov, [facility] [place] [facility] [address] [id number] [place] [address] October, [facility] [place] [facility] [address] [id number] [place] [address] October, [facility] [place] [facility] [address] [id number] [place] [address] October, [facility] [address] [id number] [place] [address] October, [facility] [place] [facility] [address] [id number] [place] [address] October, [facility] [place] [facility] [address] [id number] [place] [address] October, [facility] [place] [facility] [address] [id number] [place] [address] October, [facility] [place] [facility] [address] [id number] [place] [address] Sep, [facility] [place] [facility] [address] [id number] [place] [address] Sep, [facility] [place] [facility] [address] [id number] [place] [address]- [address] Sep, [facility] [place] [facility] [address] [id number] [place] [address] Sep, [facility] [place] [facility] [address] [id number] [place] [address]- [address] 24 Sep, 2011 [facility] [place] [facility] [address] [id number] [place] [address]- [address] 19 Sep, 2011 [facility] [place] [facility] [address] [id number] [place] [address]- 49[address] 17 Sep, 2011 [facility] [place] [facility] [address] [id number] [place] [address] 16 Sep, 2011 [facility] [place] [facility] [address] [id number] [place] [address]- [address]10 16 Sep, 2011 [facility] [place] [facility] [address] [id number] [place] [address]- [address] 14 Sep, 2011 [facility] [place] [facility] [address] [id number] [place] [address]- [address] 13 Sep, 2011 [facility] [place] [facility] [address] [id number] [place] [address]- 1356 10 Sep, 2011 [facility] [place] [facility] [address] [id number] [place] [address]- [address] 09 Sep, 2011 [facility] [place] [facility] [address] [id number] [place] [address]- 94[address] 27 Aug, 2011 [facility] [place] [facility] [address] [id number] [place] [address] 79[address] Aug, [facility] [place] [facility] [address] [id number] [place] [address]- 44[address] 08 Aug, 2011 [facility] [place] [facility] [address] [id number] [place] [address]- [address] 06 Aug, 2011 [facility] [place] [facility] [address] [id number] [place] [address]- [address] 28 Jul, 2011 [facility] [place] [facility] [address] [id number] [place] [address]- [address] 22 Jul, 2011 [facility] [place] [facility] [address] [id number] [place] [address]- 2246 16 Jul, 2011 [facility] [place] [facility] [address] [id number] [place] [address]- 1569 15 Jul, 2011 [facility] [address] [id number] [place] [address]- [address]006 14 Jul, 2011 [facility] [place] [facility] [address] [id number] [place] [address]- 4036 10 Jul, 2011 [facility] [address] [id number] [place] [address]- [address] 30 Jun, 2011 [facility] [place] [facility] [address] [id number] [place] [address]- [address]201 Jun, [facility] [place] [facility] [address] [id number] [place] [address]- [address] Jun, [facility] [address] [id number] [place] [address]- [address] Jun, [facility] [address] [id number] [place] [address]- [address]15 Jun, [facility] [address] [id number] [place] [address]- 4433 27 May, 2011 [facility] [address] [id number] [place] [address]- [address] May, [facility] [address] [id number] [place] [address]- [address]994 14 May, 2011 [facility] [place] [facility] [address] [id number] [place] [address]- 9537 14 May, 2011 [facility] [facility] [address] [id number] [place] [address]- [address]169 12 May, 2011 [facility] [place] [facility] [address] [id number] [place] [address]- 6796 07 May, 2011 [facility] [address] [id number] [place] [address]- 4786 05 May, 2011 [facility] [place] [facility] [address] [id number] [place] [address] 15 Apr, 2011 [facility] [place] [facility] [address] [id number] [place] [address]- 67[address] 15 Apr, 2011 [facility] [place] [facility] [address] [id number] [place] [address]- 8589 Apr, [facility] [place] [facility] [address] [id number] [place] [address] Apr, [facility] [place] [facility] [address] [id number] [place] [address]- 49[address] Apr, [facility] [place] [facility] [address] [id number] [place] [address]- [address]120 Apr, [facility] [place] [facility] [address] [id number] [place] [address]- 1164 Mar, [facility] [place] [facility] [address] [id number] [place] [address]- 4751 Mar, [facility] [place] [facility] [address] [id number] [place] [address] Mar, [facility] [place] [facility] [address] [id number] [place] [address] Mar, [facility] [place] [facility] [address] [id number] [place] [address] Jan, [facility] [place] [facility] [address] [id number] [place] [address] Dec, [facility] [place] [facility] [address] [id number] [place] [address] Dec, [facility] [place] [facility] [address] [id number] [place] [address] October, [facility] [place] [facility] [address] [id number] [place] [address] 20 Sep, 2010 [facility] [place] [facility] [address] [id number] [place] [address] 14 Sep, 2010 [facility] [place] [facility] [address] [id number] [place] [address] 17 Jul, 2010 [facility] [address] [id number] [place] [address] 16 Jul, 2010 [facility] [address] [id number] [place] [address] 31 May, 2010 [facility] [address] [id number] [place] [address] 27 May, 2010 [facility] [address] [id number] [place] [address] 08 May, 2010 [facility] [address] [id number] [place] [address], [place] [address] May, [facility] [address] [id number] [place] [address] Apr, [facility] [address] [id number] [place] [address] Apr, [facility] [address] [id number] [place] [address] Apr, [facility] [address] [id number] [place] [address] Apr, [facility] [address] [facility] [id number] [place] [address] Apr, [facility] [address] [id number] [place] [address] Mar, [facility] [address] [id number] [place] [address] 14 Mar, 2010 [facility] [place] [facility] [address] [id number] [place] [address] 13 Mar, 2010 [facility] [place] [facility] [address] [facility] [id number] [place] [address] 12 Mar, 2010 [facility] [place] [facility] [address] [id number] [place] [address] Jan, [facility] [id number] [address] Dec, [facility] [id number] [address] [address] Sep, [facility] [id number] [address] May, [facility] [id number] [address] May, [facility] [id number] [address] May, [facility] [id number] [address] Apr, [facility] [id number] [address] Apr, [facility] [id number] [address] Apr, [facility] [id number] [address] Apr, [facility] [id number] [address] Apr, [facility] [id number] [address] Mar, [facility] [id number] [address] Mar, [facility] [id number] [address] Jul, IMMUNIZATIONS No Known Immunizations SOCIAL HISTORY Never Assessed REASON FOR VISIT EMR-[facility] [place] PLAN OF CARE VITAL [facility]- Abd pain 03/07/2017 Hospitalization [facility]- Abd pain 03/14/2017 [facility]- No bowel movement, rash 04/13/2017 Hospitalization [facility]- Abd pain r/t kidney surgery on 04/17/2017 [facility]- Abd pain r/t kidney surgery on 04/18/2017 [facility]ization [facility]- Lower abd pain 04/30/2017 Hospitalization [facility]- Cannot urinate 05/30/2017 [facility]- Pancreatitis Sx 06/29/2017 [facility]- Stomach pain 07/22/2017 [facility]- Left side pain 08/12/2017 Hospitalization [facility]- Incision site infection 08/30/2017 Hospitalization History [facility]- Post Op Seroma/Hematoma Left Abdomen. Discharged 09/04/17- Dr Daniel 09/02/2017 [facility]- Right shoulder and back pain 2017 Hospitalization [facility]- Shoulder/Back pain 11/11/2017 Hospitalization [facility]- Right shoulder blade pain 12/04/2017 Hospitalization [facility]- C-Diff 12/13/2017 Hospitalization History C diff et MRSA 12/27/2017
--- OUTSIDE RECORDS SUMMARY | 2018-10-22 07:22 | XMS REPORT ---
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 Name Role Phone Migration, Doctor Unavailable Unavailable PROBLEMS Type Condition ICD9-CM Code KYX86-ZP Code Onset Dates Condition Status SNOMED Code Problem Chronic tension-type headache, intractable G44.221 Active 701374165 Problem Right carpal tunnel syndrome G56.01 Active 957493684058966 Problem Hyperlipidemia, mixed E78.2 Active 158038042 Problem Morbid (severe) obesity due to excess calories E66.01 Active 489399785 Problem FH: polycystic ovary Z84.2 Active 510764903 Problem Hirsuties L68.0 Active 674014858 Problem Asthma J45.909 Active 528543843 Problem Chronic pancreatitis K86.1 Active 026570493 Problem Trichotillomania F63.3 Active 12086592 Problem Restless leg syndrome G25.81 Active 66466253 Problem Generalized social phobia F40.11 Active 73732524 Problem Primary osteoarthritis of right knee M17.11 Active 635235356864309 Problem Atelectasis J98.11 Active 06257926 Problem History of renal cell carcinoma Z85.528 Active 828850240 Problem Obesities, morbid E66.01 Active 862500239 Problem Polydipsia R63.1 Active 34339361 Problem Nodule of left lung R91.1 Active 223302787 Problem Chronic post-traumatic stress disorder (PTSD) F43.12 Active 487757778 Problem Moderate episode of recurrent major depressive disorder F33.1 Active 590380276 Problem Chronic fatigue R53.82 Active 43485699 Problem Intestinal malabsorption, unspecified K90.9 Active 56318293 ALLERGIES No Information ENCOUNTERS Encounter Location Date Diagnosis [facility] [address] [facility] [id number], [place] [address] October, [facility] [address] [facility] [id number], [place] [address] October, [address] [address] Sep, [facility] [address] [facility] [id number], [place] [address] Sep, [facility] [address] [facility] [id number], [place] [address] Sep, [facility] [address] [facility] [id number], [place] [address] Sep, [facility] [address] [facility] [id number] [place] [address]2318- 9288 Sep, Lower extremity edema R60.0 [facility] [address] [facility] [id number] [place] [address] 38694- 5113 Sep, [facility] [address] [facility] [id number], [place] [address] Sep, Lower extremity edema R60.0 and Morbid obesity E66.01 [facility] [address] [facility] [id number], [place] [address] Sep, [facility] [address] [facility] [id number], [place] [address] Sep, [facility] [address] [facility] [id number], [place] [address] Aug, [facility] [address] [facility] [id number], [place] [address] Aug, Obesities, morbid E66.01 and Morbid obesity E66.01 [facility] [address] [facility] [id number], [place] [address] Aug, [facility] [address] [place] [address] Jul, [facility] [address] [facility] [id number], [place] [address] Jul, [facility] [address], [place] [address] Jul, [facility] [address]65[address], [place] [address] Jul, Numbness of right hand R20.0 [facility] [address] [place] [id number] [place] [address] 03618- 6773 Jul, [facility] [address] [place] [place] [id number] [place] [address] 32129- 7021 Jul, Numbness of right hand R20.0 [facility] [address] [place] [place] [id number] [place] [address] 68207- 9144 Jul, [facility] [address] [place] [place] [id number] [place] [address] 75384- 6518 Jul, [facility] [address] [place] [id number] [place] [address] 52054- 6470 Jul, Right-sided thoracic back pain M54.6 [facility] [address] [place] [id number] [place] [address] 13180- 5396 Jul, [facility] [address] [place] [id number] [place] [address] 18805- 2019 Jul, [facility] [id number] [place] [address] 27530- 4941 Jul, [facility] [address], [place] [address] 22[address] Jul, [facility] [address] [place] [address] 05403- 7074 Jun, [facility] [address] [place] [address] 25424- 1869 Jun, Acute pain of right shoulder M25.511 ; Numbness of right hand R20.0 and Trapezius muscle spasm M62.838 [facility] [address], [place] [address] Jun, [facility] [address] [place] [id number] [place] [address] 17223- 7046 Jun, [facility] [address] [place] [id number] [place] [address] 98901- 5232 Jun, Cough R05 ; BMI 50.0-59.9, adult Z68.43 and Morbid obesity E66.01 [facility] [address] [place] [id number] [place] [address] 37325- 2801 Jun, [facility] [address] [address] Jun, [facility] [address] [place] [id number] [place] [address] 46166 -0331 Jun, BMI 45.0-49.9, adult Z68.42 and Acute non-recurrent maxillary sinusitis J01.00 [facility] [address] [place] [id number] [place] [address] 78673 -4214 Jun, Acute sinusitis J01.90 ; Dysuria R30.0 and BMI 45.0-49.9, adult Z68.42 [facility] [address] [place] [id number] [place] [address] 21018- 7454 Jun, [facility] [address] [place] [id number] [place] [address] 37220- 6232 Jun, [facility] [address] [place] [id number] [place] [address] 01939- 6354 May, [facility] [address] [place] [id number] [place] [address] 80076- 0621 May, [facility] [address] [place] [id number] [place] [address] 44422- 1720 May, [facility] [address] [place] [place] [id number] [place] [address] 70457- 1556 May, [facility] [address] [place] [id number] [place] [address] 18946- 9815 May, [facility] [address] [place] [id number] [place] [address] 34489- 7191 Apr, Generalized social phobia F40.11 ; Trichotillomania F63.3 ; Chronic post-traumatic stress disorder (PTSD) F43.12 and BMI 45.0-49.9, adult Z68.42 [facility] [address] [place] [id number] [place] [address] 11819- 7854 Apr, [facility] [address] [place] [id number] [place] [address] 56373- 1506 Apr, Chronic tension-type headache, intractable G44.221 [place] [address] 88842- 8451 Apr, [facility] [address] [address] Mar, [facility] [place] [address] 99[address] -5828 Mar, BMI 45.0-49.9, adult Z68.42 and Pimples R23.8 [facility] [address] [place] [id number] [place] [address] 35505- 6897 Mar, [facility] [address] [place] [id number] [place] [address] 99692- 6291 Mar, [facility] [address] [place] [id number] [place] [address] 10003- 4437 Mar, Decreased urination R34 ; Chronic fatigue R53.82 ; Peripheral edema R60.9 ; Diarrhea, unspecified type R19.7 ; Non-intractable vomiting with nausea, unspecified vomiting type R11.2 ; BMI 45.0-49.9, adult Z68.42 and Chronic post-traumatic stress disorder (PTSD) F43.12 [facility] [address] [place] [id number] [place] [address] 28234- 8565 Mar, Intestinal malabsorption, unspecified K90.9 ; Diarrhea, unspecified R19.7 ; Urinary urgency R39.15 ; Rectal bleeding K62.5 and Decreased urine output R34 [facility] [address] [place] [id number] [place] [address] 87213- 9821 Mar, Decreased urine output R34 [facility] [address] [place] [id number] [place] [address] 59530- 0856 Mar, Rectal bleeding K62.5 [facility] [address] [place] [id number] [place] [address] 34756- 3149 Mar, Rectal bleeding K62.5 [facility] [address] [place] [id number] [place] [address] 28088- 8352 Mar, Urinary urgency R39.15 [facility] [address] [place] [id number] [place] [address] 60081- 7196 Mar, Urinary urgency R39.15 [facility] [address] [place] [id number] [place] [address] 97470- 3543 Mar, Primary osteoarthritis of right knee M17.11 and BMI 45.0- 49.9, adult Z68.42 [facility] [address] [place] [id number] [place] [address] 02126- 4673 Mar, [facility] [address] [place] [id number] [place] [address] 22970- 2059 Feb, Left upper arm pain M79.622 [facility] [address] [place] [id number] [place] [address] 78847- 3424 Feb, [facility] [address] [place] [id number] [place] [address] 42626- 3481 Jan, Acute pain of right knee M25.561 ; Right upper quadrant abdominal pain R10.11 and BMI 45.0-49.9, adult Z68.42 [facility] [address] [place] [id number] [place] [address] 68077- 2937 Jan, [facility] [address] [place] [id number] [place] [address] 18762- 6687 Jan, [facility] [address] [place] [id number] [place] [address] 02784- 1239 Dec, [facility] [address], [place] [address]- 5454 Dec, Intestinal malabsorption, unspecified K90.9 and Diarrhea, unspecified R19.7 [facility] [address], [place] [address]- 1305 Dec, [facility] [address] [place] [id number] [place] [address] 20157- 9416 Dec, Strep throat J02.0 ; Intestinal malabsorption, unspecified K90.9 ; Diarrhea, unspecified R19.7 ; Postoperative seroma involving digestive system after non-digestive system procedure K91.873 ; Hyperlipidemia, mixed E78.2 and BMI 45.0-49.9, adult Z68.42 [facility] [address] [place] [address] 78280- 9485 Dec, [facility] [address] [place] [id number] [place] [address] 37257- 3038 Dec, Nausea R11.0 [facility] [address] [place] [id number] [place] [address] 75906- 4957 Dec, [facility] [address] [place] [address] 10807 -6885 Dec, Sore throat J02.9 ; Strep throat J02.0 and BMI 45.0-49.9, adult Z68.42 [facility] [address], [place] [address]- 3242 Dec, [facility] [address], [place] [address]- 8484 Dec, [facility] [address] [place] [id number] [place] [address] 60048- 6008 Dec, [facility] [address] [place] [address] 76898- 8787 Dec, [facility] [address] [place] [id number] [place] [address] 95554- 2571 Dec, [facility] [address] [place] [id number] [place] [address] 03437- 6281 Dec, [facility] [address] [id number] [place] [address] 17764- 0242 Dec, [facility] [address] [place] [id number] [place] [address] 85908- 2601 Dec, [facility] [address] [place] [id number] [place] [address] 53477- 0592 Dec, Clostridium difficile colitis A04.72 ; Intractable vomiting with nausea, unspecified vomiting type R11.2 and BMI 45.0-49.9, adult Z68.42 [facility] [address] [place] [id number] [place] [address] 92379- 7557 Dec, [facility] [address] [place] [id number] [place] [address] 38575- 8725 Nov, [facility] [address] [place] [id number] [place] [address] 52155- 3548 Nov, [facility] [address] [place] [id number] [place] [address] 74029- 3780 Nov, [facility] [address] [id number] [place] [address] 67514- 0168 Nov, [facility] [address] [place] [id number] [place] [address] 85712 -1081 Nov, [facility] [address] [id number] [place] [address] 93731- 2254 Nov, Hyperlipidemia, mixed E78.2 [facility] [address] [address]28 -8354 Nov, Acute suppurative otitis media of right ear without spontaneous rupture of tympanic membrane, recurrence not specified H66.001 and BMI 45.0-49.9, adult Z68.42 [facility] [address] 96413- 0927 Nov, Hyperlipidemia, mixed E78.2 [place] [address], [place] [address]- 4170 Nov, [place] [address] [place] [address] 16357- 1577 Nov, [facility] [address] [place] [id number] [place] [address] 47397- 3571 Nov, Nodule of left lung R91.1 [place] [address] [place] [address] 32797- 9016 Nov, Medicare annual wellness visit, initial Z00.00 [...] adult Z68.42 and Encounter for immunization Z23 [place] [id number] [place] [address] 27901- 0513 October, [place] [id number] [place] [address] 93829- 4064 October, Nodule of left lung R91.1 [facility] [address] [place] [place] [id number] [place] [address] 19664- 5868 October, Nodule of left lung R91.1 [place] [address] [place] [address] 01599- 6474 October, Recurrent major depressive disorder, in partial remission F33.41 ; Restless leg syndrome G25.81 ; Generalized social phobia F40.11 ; Chronic post-traumatic stress disorder (PTSD) F43.12 ; BMI 45.0-49.9, adult Z68.42 and Trichotillomania F63.3 [address], [place] [address]- 5958 October, [facility] [address] [place] [id number] [place] [address] 08937- 4597 Sep, Chronic fatigue R53.82 and BMI 45.0-49.9, adult Z68.42 [facility] [address] [place] [id number] [place] [address] 62981- 3806 Aug, [facility] [address] [place] [id number] [place] [address] 21339- 7538 Jul, Restless leg syndrome G25.81 and B12 deficiency E53.8 [facility] [address] [id number] [place] [address] 09363- 3906 Jul, [facility] [address] [place] [id number] [place] [address] 94968- 1726 Jul, [facility] [address] [place] [place] [id number] [place] [address] 98562- 9960 Jun, [facility] [address] [place] [place] [id number] [place] [address] 20721- 7969 Jun, Fatigue, unspecified type R53.83 ; History of renal cell carcinoma Z85.528 ; Chronic pancreatitis K86.1 ; Restless leg syndrome G25.81 ; Dark urine R82.99 and BMI 45.0-49.9, adult Z68.42 [facility] [address] [place] [place] [id number] [place] [address] 41310- 7389 Jun, [facility] [address] [place] [address] 01386- 3289 Jun, [facility] [address] [place] [id number] [place] [address] 66372- 7313 Jun, [facility] [address], [place] [address]- 6826 Jun, [facility] [address] [place] [id number] [place] [address] 64547- 8595 May, Chronic post-traumatic stress disorder (PTSD) F43.12 ; Moderate episode of recurrent major depressive disorder F33.1 ; Trichotillomania F63.3 and Generalized social phobia F40.11 [place] [address], [place] [address]- 7716 May, [place] [address], [place] [address]- 6743 May, Chronic post-traumatic stress disorder (PTSD) F43.12 ; Moderate episode of recurrent major depressive disorder F33.1 ; Trichotillomania F63.3 and Generalized social phobia F40.11 [place] [address] [place] [address] 59277- 0631 May, Hyperlipidemia, mixed E78.2 ; Morbid (severe) obesity due to excess calories E66.01 ; Chronic post-traumatic stress disorder (PTSD) F43.12 ; Moderate episode of recurrent major depressive disorder F33.1 ; Trichotillomania F63.3 and Generalized social phobia F40.11 [place] [address], [place] [address]- 0071 Apr, [facility] [address] [place] [id number] [place] [address] 24921- 5461 Apr, Hyperlipidemia, mixed E78.2 ; Morbid (severe) obesity due to excess calories E66.01 ; Chronic post-traumatic stress disorder (PTSD) F43.12 ; Moderate episode of recurrent major depressive disorder F33.1 ; Trichotillomania F63.3 and Generalized social phobia F40.11 [place] [address], [place] [address]- 5917 Apr, Trichotillomania F63.3 ; Generalized social phobia F40.11 ; Chronic post-traumatic stress disorder (PTSD) F43.12 and Moderate episode of recurrent major depressive disorder F33.1 [place] [address], [place] [address]- 7625 Apr, [facility] [place] [address] [place] [id number] [place] [address] 74713- 9754 Apr, [facility] [place] [address] [place] [id number] [place] [address] 40584- 0105 Mar, Moderate episode of recurrent major depressive disorder F33.1 ; Trichotillomania F63.3 ; Chronic post-traumatic stress disorder (PTSD) F43.12 ; Generalized social phobia F40.11 and Restless leg syndrome G25.81 [place] [address] 06511- 1077 Mar, [place] [address] 11467- 0601 Mar, [place] [address] 17321- 6977 Feb, Left kidney mass N28.[address] 13207- 6174 Jan, [facility] [place] [address] [place] [id number] [place] [address] 12450- 2310 Dec, Polydipsia R63.1 ; Chronic pancreatitis K86.1 and Fatigue, unspecified type R53.83 [place] [address] [place] [id number] [place] [address] 69307- 7851 Nov, [facility] [address] [place] [id number] [place] [address] 30083- 1650 Nov, [facility] [place] [address] [place] [id number] [place] [address] 12053- 9526 Nov, Headache around the eyes R51 [place] [address] [id number] [place] [address] 29651- 4509 Nov, [place] [address] [place] [id number] [place] [address] 69506- 2043 October, STD exposure Z20.[address] 21450- 6020 October, STD exposure Z20.2 [place] [address] [place] [id number] [place] [address] 59146- 0967 October, Chronic post-traumatic stress disorder (PTSD) F43.12 ; Generalized social phobia F40.11 ; Trichotillomania F63.3 and Restless leg syndrome G25.81 [place] [address] [place] [id number] [place] [address] 41772- 7405 October, [facility] [id number] [place] [address] 30311- 3758 Sep, [place] [id number] [place] [address] 22522- 7346 Aug, [facility] [place] [address] [id number] [place] [address] 92726- 6182 Aug, [facility] [place] [address] [id number] [place] [address] 01118- 7023 Aug, Neck mass R22.1 [facility] [address] [id number] [place] [address] 12337- 2637 Aug, Atelectasis J98.11 [facility] [address] [place] [id number] [place] [address] 49359- 0314 28 Jul, 2016 Hyperlipidemia, mixed E78.2 ; Atypical pneumonia J18.9 and Neck mass R22.1 [place] [address] [place] [id number] [place] [address] 50842- 5698 15 Jul, 2016 Hemoptysis R04.2 [facility] [address] [place] [id number] [place] [address] 48515- 0481 08 Jul, 2016 Acute non-recurrent pansinusitis J01.40 ; Hemoptysis R04.2 ; Polydipsia R63.1 and Malaise R53.81 [facility] [address], [place] [address] May, Other viral agents as the cause of diseases classified elsewhere B97.89 and Acute upper respiratory infection, unspecified J06.9 [facility], [place] [address] Mar, Nausea R11.0 [facility] [place] [address] [place] [id number] [place] [phone] 28 Dec, 2015 Hives L50.9 [place] [id number] [place] [address] 14 Dec, 2015 [facility] [place] [address] [id number] [place] [address] Dec, Cutaneous abscess of limb, unspecified L02.419 ; Cellulitis of unspecified part of limb L03.119 ; Encounter for incision and drainage procedure Z01.89 and Encounter for recheck of abscess following incision and drainage Z09 [facility] [place] [id number] [place] [address] Dec, Abscess of leg, right L02.415 [place] [address] [id number] [place] [address] Dec, Cellulitis of unspecified part of limb L03.119 and Cutaneous abscess of limb, unspecified L02.419 [place] [address] [id number] [place] [address] Dec, [place] [address] [place] [id number] [place] [address] Dec, [facility] [place] [address] [id number] [place] [address] Aug, [place] [id number] [place] [phone] Aug, [facility] [place] [address] [id number] [place] [phone] 04 Jul, 2015 Pain in unspecified wrist M25.539 and Back pain, thoracic M54.6 [facility] [place] [address] [id number] [place] [address] Jun, Strain of right wrist, initial encounter S66.911A [place] [address] [address] Jun, Chronic pancreatitis, unspecified pancreatitis type K86.1 ; Hirsuties L68.0 ; Morbid (severe) obesity due to excess calories E66.01 ; Chronic pancreatitis K86.1 and Asthma J45.909 [place] [address] [address] May, [place] [address] [address] May, Hyperlipidemia, mixed E78.2 and Muscle spasm of back M62.[address] [address] Apr, [address] [address] Apr, Torticollis M43.6 [place] [address] [address] Apr, Right-sided thoracic back pain M54.6 [place] [address] [place] [id number] [place] [address] Mar, Rash R21 [place] [address] [place] [id number] [place] [address] Mar, [place] [address] [place] [id number] [place] [address] Jan, [place] [address] [address] Dec, [place] [address] [address] Dec, Urinary frequency 788.41 and Nocturia more than twice per night 788.43 [place] [address] [address] Nov, [facility] [address], [place] [address] Nov, [facility] [id number], [place] [address] Nov, Abdominal pain 789.00 [facility] [id number], [place] [address] October, TDAP DX V06.1 [facility] [id number], [place] [address] October, [facility] [id number] [place] [address] October, Disturbance of skin sensation 782.0 ; Wrist pain, right 719.43 ; Hyperlipidemia 272.4 and Skin lesion of face 709.9 [facility] [address], [place] [address] Sep, [facility] [id number], [place] [address] Sep, [facility] [id number], [place] [address] Aug, [facility] [id number], [place] [address]- [address] Aug, [facility] [id number], [place] [address] Aug, [facility] [id number], [place] [address] 9[address] 23 Aug, 2014 [facility] [id number], [place] [address] Aug, [facility] [address], [place] [address] 6[address] 16 Aug, 2014 [facility] [id number] [address] 14 Aug, 2014 [facility] [place] [facility] [address] [id number] [place] [address]- 1028 14 Aug, 2014 [facility] [place] [facility] [address] [id number] [place] [address]- 3342 Aug, [facility] [place] [facility] [address] [id number] [place] [address]- 7473 Aug, [facility] [place] [facility] [address] [id number] [place] [address]- 6810 Aug, [facility] [place] [facility] [address] [id number] [place] [address]- 6935 Aug, [facility] [place] [facility] [address] [id number] [place] [address]- 3792 Aug, [facility] [place] [facility] [address] [id number] [place] [address]- 6526 Aug, [facility] [place] [facility] [address] [id number] [place] [address]- 7254 Jul, [facility] [place] [facility] [address] [id number] [place] [address]- 1586 Jul, [facility] [place] [facility] [address] [id number] [place] [address]- 7186 Jul, [facility] [place] [facility] [address] [id number] [place] [address]- 6448 Jul, [facility] [place] [facility] [address] [id number], [place] [address] 0067 Jul, [facility] [place] [facility] [address] [id number] [place] [address]- 7911 Jul, [facility] [place] [facility] [address] [id number] [place] [address]- 1577 Jun, [facility] [place] [facility] [address] [id number] [place] [address]- 2659 Jun, [facility] [place] [facility] [address] [id number] [place] [address]- 3630 Jun, [facility] [address] [id number] [place] [address]- 5912 Jun, [facility] [address] [id number] [place] [address]- 5956 Jun, [facility] [address] [id number] [place] [address]- 9545 Jun, [facility] [address] [id number] [place] [address]- 6132 15 Jun, 2014 [facility] [address] [id number] [place] [address]- 1512 15 Jun, 2014 [facility] [address] [id number] [place] [address]- 4939 May, [facility] [address] [id number] [place] [address]- 2141 May, [facility] [address] [id number] [place] [address]- 4055 May, [facility] [address] [id number] [place] [address]- 7793 May, [facility] [address] [id number] [place] [address]- 3680 15 May, 2014 [facility] [place] [facility] [address] [id number] [place] [address]- 3595 15 May, 2014 [facility] [address] [id number] [place] [address]- 4883 May, [facility] [place] [facility] [address] [id number] [place] [address]- 0684 May, [facility] [place] [facility] [address] [id number] [place] [address]- 7850 May, [facility] [address] [id number] [place] [address]- 0113 May, [facility] [place] [facility] [address] [id number] [place] [address]- 3849 May, [facility] [place] [facility] [address] [id number] [place] [address]- 3134 May, [facility] [place] [facility] [address] [id number] [place] [address]- 3143 Apr, [facility] [place] [facility] [address] [id number] [place] [address]- 9975 Apr, [facility] [place] [facility] [address] [id number] [place] [address]- 2867 Apr, [facility] [place] [facility] [address] [id number] [place] [address]- 5224 Apr, [facility] [place] [facility] [address] [id number] [place] [address]- 9306 Apr, [facility] [place] [facility] [address] [id number] [place] [address]- 1011 Apr, [facility] [place] [facility] [address] [id number] [place] [address]- 4997 Apr, [facility] [place] [facility] [address] [id number] [place] [address]- 5194 Apr, [facility] [place] [facility] [address] [id number], [place] [address]- 9502 Apr, [facility] [place] [facility] [address] [id number], [place] [address]- 1399 Apr, [facility] [place] [facility] [address] [id number] [place] [address]- 7299 Apr, [facility] [place] [facility] [address] [id number] [place] [address]- 6324 Apr, [facility] [place] [facility] [address] [id number], [place] [address]- 3798 14 Mar, 2014 [facility] [place] [facility] [address] [id number], [place] [address]- 5987 Mar, [facility] [place] [facility] [address] [id number] [place] [address]- 2169 Mar, [facility] [place] [facility] [address] [id number] [place] [address]- 6571 Mar, [facility] [place] [facility] [address] [id number] [place] [address]- 9727 Feb, [facility] [place] [facility] [address] [id number] [place] [address]- 7552 Feb, [facility] [place] [facility] [address] [id number] [place] [address]- 0910 Feb, [facility] [place] [facility] [address] [id number] [place] [address]- 0944 Feb, [facility] [place] [facility] [address] [id number] [place] [address]- 3258 Feb, [facility] [place] [facility] [address] [id number] [place] [address]- 9257 Feb, [facility] [place] [facility] [address] [id number] [place] [address]- 3929 Jan, [facility] [place] [facility] [address] [id number] [place] [address]- 5490 Jan, [facility] [place] [facility] [address] [id number] [place] [address]- 6962 Jan, [facility] [place] [facility] [address] [id number] [place] [address]- 4681 Jan, [facility] [place] [facility] [address] [id number] [place] [address]- 3541 Jan, [facility] [place] [facility] [address] [id number] [place] [address]- 6043 Jan, [facility] [place] [facility] [address] [id number] [place] [address]- 3606 Jan, [facility] [place] [facility] [address] [id number] [place] [address]- 2225 Jan, [facility] [place] [facility] [address] [id number] [facility] [place] [address]- 9784 Jan, [facility] [place] [facility] [address] [id number] [place] [address]- 2637 Jan, [facility] [place] [facility] [address] [id number] [place] [address]- 7250 Jan, [facility] [place] [facility] [address] [id number] [place] [address]- 2910 Jan, [facility] [place] [facility] [address] [id number] [place] [address]- 2919 Jan, [facility] [place] [facility] [address] [id number] [place] [address]- 7624 Jan, [facility] [place] [facility] [address] [id number] [place] [address]- 7244 Dec, [facility] [place] [facility] [address] [id number] [place] [address]- 4673 Dec, [facility] [place] [facility] [address] [id number] [place] [address]- 9584 Dec, [facility] [place] [facility] [address] [id number] [place] [address]- 4778 Dec, [facility] [place] [facility] [address] [id number] [place] [address]- 8920 Nov, [facility] [place] [facility] [address] [id number] [place] [address]- 9262 Nov, [facility] [place] [facility] [address] [id number] [place] [address]- 3609 Nov, [facility] [place] [facility] [address] [id number] [place] [address]- 5467 Nov, [facility] [place] [facility] [address] [id number] [place] [address]- 2133 Nov, [facility] [place] [facility] [address] [id number] [place] [address]- 0871 October, [facility] [place] [facility] [address] [id number] [place] [address]- 5671 October, [facility] [place] [facility] [address] [id number] [place] [address]- 3789 October, [facility] [place] [facility] [address] [id number] [place] [address]- 3955 October, [facility] [place] [facility] [address] [id number] [place] [address]- 2624 October, [facility] [place] [facility] [address] [id number] [place] [address]- 9323 October, [facility] [place] [facility] [address] [id number] [place] [address]- 5479 October, [facility] [place] [facility] [address] [id number] [place] [address]- 3747 October, [facility] [place] [facility] [address] [id number] [place] [address]- 3714 October, [facility] [place] [facility] [address] [id number] [place] [address]- 2778 October, [facility] [place] [facility] [address] [id number] [place] [address]- 6494 October, [facility] [place] [facility] [address] [id number] [place] [address]- 3421 October, [facility] [place] [facility] [address] [id number] [place] [address]- 2657 October, [facility] [place] [facility] [address] [id number] [place] [address]- 6077 October, [facility] [place] [facility] [address] [id number] [place] [address]- 3053 Sep, [facility] [place] [facility] [address] [id number] [place] [address]- 4548 17 Sep, 2013 [facility] [place] [facility] [address] [id number] [place] [address]- 4492 14 Sep, 2013 [facility] [place] [facility] [address] [id number] [place] [address]- 3917 14 Sep, 2013 [facility] [place] [facility] [address] [id number] [place] [address]- 0994 Sep, [facility] [place] [facility] [address] [id number] [place] [address]- 5937 Sep, [facility] [place] [facility] [address] [id number] [place] [address]- 7923 Sep, [facility] [place] [facility] [address] [id number] [place] [address]- 8376 Sep, [facility] [place] [facility] [address] [id number] [place] [address]- 7678 Sep, [facility] [place] [facility] [address] [id number] [place] [address]- 4850 Sep, [facility] [place] [facility] [address] [id number] [place] [address]- 0833 Sep, [facility] [place] [facility] [address] [id number] [place] [address]- 0595 Sep, [facility] [place] [facility] [address] [id number] [place] [address]- 8002 Sep, [facility] [place] [facility] [address] [id number] [place] [address]- 9980 Sep, [facility] [place] [facility] [address] [id number] [place] [address]- 9399 Sep, [facility] [place] [facility] [address] [id number] [place] [address]- 1152 Aug, [facility] [place] [facility] [address] [id number] [place] [address]- 6333 Aug, [facility] [place] [facility] [address] [id number] [place] [address]- 9134 Aug, [facility] [place] [facility] [address] [id number] [place] [address]- 7017 Aug, [facility] [place] [facility] [address] [id number] [place] [address]- 6120 Jul, [facility] [place] [facility] [address] [id number] [place] [address]- 3323 Jul, [facility] [place] [facility] [address] [id number] [place] [address]- 9460 Jul, [facility] [place] [facility] [address] [id number] [place] [address]- 5115 Jul, [facility] [place] [facility] [address] [id number] [place] [address]- 1862 Jun, [facility] [place] [facility] [address] [id number] [place] [address]- 0846 Jun, [facility] [place] [facility] [address] [id number] [place] [address]- 6898 Jun, [facility] [place] [facility] [address] [id number] [place] [address]- 9864 Jun, [facility] [place] [facility] [address] [id number] [place] [address]- 3330 Jun, [facility] [place] [facility] [address] [id number] [place] [address]- 0671 Jun, [facility] [place] [facility] [address] [id number] [place] [address]- 4605 Jun, [facility] [place] [facility] [address] [id number] [place] [address]- 2280 Jun, [facility] [place] [facility] [address] [id number] [place] [address]- 3108 May, [facility] [place] [facility] [address] [id number] [place] [address]- 8432 20 May, 2013 [facility] [address] [id number] [place] [address]- 3605 18 May, 2013 [facility] [address] [id number] [place] 4504 18 May, 2013 [facility] [address] [id number] [place] 2211 17 May, 2013 [facility] [address] [id number] [place] [address] 17 May, 2013 [facility] [address] [id number] [place] [address]- 5365 17 May, 2013 [facility] [address] [id number] [place] [address]- 7745 17 May, 2013 [facility] [address] [id number] [place] [address]- 1716 16 May, 2013 [facility] [address] [id number] [place] [address]- 1444 16 May, 2013 [facility] [address] [id number] [place] [address]- 4429 14 May, 2013 [facility] [address] [id number] [place] [address]- 4364 14 May, 2013 [facility] [address] [id number] [place] [address]- 7474 13 May, 2013 [facility] [address] [id number] [place] [address]- 8656 13 May, 2013 [facility] [address] [id number] [place] [address]- 4123 12 May, 2013 [facility] [address] [id number] [place] [address]- 7825 12 May, 2013 [facility] [address] [id number] [place] [address]- 3796 11 May, 2013 [facility] [place] [facility] [address] [id number] [place] [address] 2546 May, [facility] [address] [id number] [place] [address]- 4659 Apr, [facility] [address] [id number] [place] [address] 2546 Apr, [facility] [address] [id number] [place] [address]- 0836 Apr, [facility] [address] [id number] [place] [address]- 1965 Apr, [facility] [address] [id number] [place] [address]- 2490 Aug, [facility] [address] [id number] [place] [address]- 2016 Aug, [facility] [address] [id number] [place] [address]- 3019 Aug, [facility] [address] [id number] [place] [address]- 9352 05 Aug, 2012 [facility] [address] [id number] [place] [address]- 4987 Jul, [facility] [address] [id number] [place] [address]- 7751 Jun, [facility] [address] [id number] [place] [address]- 8503 Jun, [facility] [address] [id number] [place] [address]- 2546 Jun, [facility] [address] [id number] [place] [address]- 2546 Jun, [facility] [address] [id number] [place] [address]- 2546 May, [facility] [address] [id number] [place] [address]- 8534 May, [facility] [place] [facility] [address] [id number] [place] [address]- 7568 May, [facility] [place] [facility] [address] [id number] [place] [address]- 6441 May, [facility] [place] [facility] [address] [id number] [place] 6942 May, [facility] [place] [facility] [address] [id number] [place] [address]- 8277 May, [facility] [place] [facility] [address] [id number] [place] [address]- 2376 May, [facility] [place] [facility] [address] [id number] [place] [address]- 9831 Apr, [facility] [place] [facility] [address] [facility] [id number] [place] [address]- 6931 Apr, [facility] [place] [facility] [address] [id number], [place] [address]- 1828 Apr, [facility] [place] [facility] [address] [id number], [place] [address]- 0009 Apr, [facility] [place] [facility] [address] [id number], [place] [address]- 6390 Apr, [facility] [place] [facility] [address] [id number], [place] [address]- 2512 Apr, [facility] [place] [facility] [address] [id number], [place] [address]- 0547 Apr, [facility] [place] [facility] [address] [id number], [place] [address]- 3627 Mar, [facility] [place] [facility] [address] [id number], [place] [address]- 6686 Mar, [facility] [place] [facility] [address] [facility] [id number], [place] [address]- 8826 Mar, [facility] [place] [facility] [address] [id number] [place] [address]- 9644 Mar, [facility] [place] [facility] [address] [id number] [place] [address]- 1205 Mar, 2011 [facility] [place] [facility] [address] [id number] [place] [address]- 8814 Mar, [facility] [place] [facility] [address] [id number] [place] [address]- 6292 Mar, [facility] [place] [facility] [address] [id number] [place] [address]- 1989 Mar, [facility] [place] [facility] [address] [id number] [place] [address] Mar, [facility] [place] [facility] [address] [id number] [place] [address] Mar, [facility] [place] [facility] [address] [id number] [place] [address] Mar, [facility] [place] [facility] [address] [id number] [place] [address] Mar, [facility] [place] [facility] [address] [id number] [place] [address] Feb, [facility] [place] [facility] [address] [facility] [id number] [place] [address] Jan, [facility] [place] [facility] [address] [id number] [place] [address] 14 Jan, 2012 [facility] [place] [facility] [address] [id number] [place] [address] Jan, [facility] [place] [facility] [address] [id number] [place] [address] Jan, [facility] [place] [facility] [address] [id number] [place] [address] Jan, [facility] [place] [facility] [address] [facility] [id number] [place] [address] Dec, [facility] [place] [facility] [address] [id number] [place] [address] Dec, [facility] [address] [id number] [place] [address] Nov, [facility] [place] [facility] [address] [id number] [place] [address] Nov, [facility] [place] [facility] [address] [id number] [place] [address] Nov, [facility] [place] [facility] [address] [id number] [place] [address] October, [facility] [place] [facility] [address] [id number] [place] [address] October, [facility] [place] [facility] [address] [id number] [place] [address] October, [facility] [address] [id number] [place] [address] October, [facility] [place] [facility] [address] [id number] [place] [address] October, [facility] [place] [facility] [address] [id number] [place] [address] 110[address] October, [facility] [place] [facility] [address] [id number] [place] [address] October, [facility] [place] [facility] [address] [id number] [place] [address] Sep, [facility] [place] [facility] [address] [id number] [place] [address] Sep, [facility] [place] [facility] [address] [id number] [place] [address] Sep, [facility] [place] [facility] [address] [id number] [place] [address]- [address] Sep, [facility] [place] [facility] [address] [id number] [place] [address] 1610 24 Sep, 2011 [facility] [place] [facility] [address] [id number] [place] [address]239 19 Sep, 2011 [facility] [place] [facility] [address] [id number] [place] [address]- [address]136 17 Sep, 2011 [facility] [place] [facility] [address] [id number] [place] [address] 16 Sep, 2011 [facility] [place] [facility] [address] [id number] [place] [address]93 16 Sep, 2011 [facility] [place] [facility] [address] [id number] [place] [address]- [address]68 14 Sep, 2011 [facility] [place] [facility] [address] [id number] [place] [address] 13 Sep, 2011 [facility] [place] [facility] [address] [id number] [place] [address]- 9511 10 Sep, 2011 [facility] [place] [facility] [address] [id number] [place] [address]- [address]28 09 Sep, 2011 [facility] [place] [facility] [address] [id number] [place] [address] 27 Aug, 2011 [facility] [place] [facility] [address] [id number] [place] [address]- [address] Aug, [facility] [place] [facility] [address] [id number] [place] [address]- [address]272 08 Aug, 2011 [facility] [place] [facility] [address] [id number] [place] [address]- [address] 06 Aug, 2011 [facility] [place] [facility] [address] [id number] [place] [address]- [address] 28 Jul, 2011 [facility] [place] [facility] [address] [id number] [place] [address]- 8922 22 Jul, 2011 [facility] [place] [facility] [address] [id number] [place] [address]- 9103 16 Jul, 2011 [facility] [place] [facility] [address] [id number] [place] [address]- 9638 15 Jul, 2011 [facility] [address] [id number] [place] [address]- 2606 14 Jul, 2011 [facility] [place] [facility] [address] [id number] [place] [address]- [address]246 10 Jul, 2011 [facility] [address] [id number] [place] [address]- [address]356 30 Jun, 2011 [facility] [place] [facility] [address] [id number] [place] [address]- [address] Jun, [facility] [place] [facility] [address] [id number] [place] [address]- [address]262 Jun, [facility] [address] [id number] [place] [address]- [address]196 Jun, [facility] [address] [id number] [place] [address]- [address] Jun, [facility] [address] [id number] [place] [address]- [address]64 27 May, 2011 [facility] [address] [id number] [place] [address]- [address]702 May, [facility] [address] [id number] [place] [address]- [address]166 14 May, 2011 [facility] [place] [facility] [address] [id number] [place] [address]- [address] 14 May, 2011 [facility] [place] [facility] [address] [id number] [place] [address]- [address]993 12 May, 2011 [facility] [place] [facility] [address] [id number] [place] [address]- 8256 07 May, 2011 [facility] [place] [facility] [address] [id number] [place] [address]- 1816 05 May, 2011 [facility] [place] [facility] [address] [id number] [place] [address] 15 Apr, 2011 [facility] [place] [facility] [address] [id number] [place] [address]- [address]805 15 Apr, 2011 [facility] [place] [facility] [address] [id number] [place] [address]- [address]763 Apr, [facility] [place] [facility] [address] [id number] [place] [address] Apr, [facility] [place] [facility] [address] [id number] [place] [address]- 65[address] Apr, [facility] [place] [facility] [address] [id number] [place] [address]- 6359 Apr, [facility] [place] [facility] [address] [id number] [place] [address]- [address]017 Mar, [facility] [place] [facility] [address] [id number] [place] [address] Mar, [facility] [place] [facility] [address] [id number] [place] [address] Mar, [facility] [place] [facility] [address] [id number] [place] [address] Mar, [facility] [place] [facility] [address] [id number] [place] [address] Jan, [facility] [place] [facility] [address] [id number], [place] [address] Dec, [facility] [place] [facility] [address] [id number], [place] [address] Dec, [facility] [place] [facility] [address] [id number] [place] [address] October, [facility] [place] [facility] [address] [id number] [place] [address] 20 Sep, 2010 [facility] [place] [facility] [address] [id number] [place] [address] 14 Sep, 2010 [facility] [place] [facility] [address] [id number] [place] [address] 17 Jul, 2010 [facility] [address] [id number] [place] [address] 16 Jul, 2010 [facility] [address] [id number] [place] [address] 31 May, 2010 [facility] [address] [id number] [place] [address] 4936 27 May, 2010 [facility] [address] [id number] [place] [address] 254 08 May, 2010 [facility] [address] [id number] [place] [address], [place] [address] May, [facility] [address] [id number] [place] [address] Apr, [facility] [address] [id number] [place] [address] Apr, [facility] [address] [id number] [place] [address] Apr, [facility] [address] [id number] [place] [address] Apr, [facility] [address] [facility] [id number] [place] [address] Apr, [facility] [address] [id number] [place] [address] 2545 Mar, [facility] [address] [id number] [place] [address] 14 Mar, 2010 [facility] [place] [facility] [address] [id number] [place] [address] 254 13 Mar, 2010 [facility] [place] [facility] [address] [facility] [id number] [place] [address]40 12 Mar, 2010 [facility] [place] [facility] [address] [id number] [place] [address] Jan, [facility] [id number] [address] Dec, [facility] [id number] [address] [address] Sep, [facility] [id number], [place] [address] May, [facility] [id number], [place] [address] May, [facility] [id number] [address] [address] May, [facility] [id number] [address] [address] Apr, [facility] [id number] [address] Apr, [facility] [id number], [place] [address] Apr, [facility] [id number], [place] [address] Apr, [facility] [id number], [place] [address] Apr, [facility] [address] [id number], [place] [address] Mar, [facility] [id number], [place] [address] Mar, [facility] [address] [id number], [place] [address] Jul, IMMUNIZATIONS No Known Immunizations SOCIAL HISTORY Never Assessed REASON FOR VISIT EMR-[facility] [place] PLAN OF CARE [...] the January before. 03/2018 Hospitalization History Cellulitis-[facility]ia [facility] 12/20/15 Hospitalization History [facility]- Abd pain 03/07/2017 Hospitalization History [facility]- Abd pain 03/14/2017 Hospitalization History [facility]- No bowel movement, rash 04/13/2017 Hospitalization [facility]- Abd pain r/t kidney surgery on 04/17/2017 Hospitalization History [facility]- Abd pain r/t kidney surgery on 04/18/2017 Hospitalization History [facility]- Lower abd pain 04/30/2017 Hospitalization History [facility]- Cannot urinate 05/30/2017 Hospitalization History [facility]- Pancreatitis Sx 06/29/2017 Hospitalization History [facility]- Stomach pain 07/22/2017 Hospitalization History [facility]- Left side pain 08/12/2017 Hospitalization History [facility]- Incision site infection 08/30/2017 Hospitalization History [facility]- Post Op Seroma/Hematoma Left Abdomen. Discharged 09/04/17- Dr Daniel 09/02/2017 Hospitalization History [facility]- Right shoulder and back pain 2017 Hospitalization History [facility]- Shoulder/Back pain 11/11/2017 Hospitalization History [facility]- Right shoulder blade pain 12/04/2017 Hospitalization History [facility]- C-Diff 12/13/2017 Hospitalization History C diff et MRSA 12/27/2017
--- OUTSIDE RECORDS SUMMARY | 2018-10-22 07:23 | XMS REPORT ---
Author Author Migration, Doctor Organization [facility] Address Unknown Phone Unavailable Care Team Providers Care Tool Profiling Machine Set Up Operator Name Role Phone Migration, Doctor Unavailable Unavailable PROBLEMS Type Condition ICD9-CM Code DXT20-TH Code Onset Dates Condition Status SNOMED Code Problem Chronic tension-type headache, intractable G44.221 Active 030832360 Problem Right carpal tunnel syndrome G56.01 Active 762243011065597 Problem Hyperlipidemia, mixed E78.2 Active 467346540 Problem Morbid (severe) obesity due to excess calories E66.01 Active 797618974 Problem FH: polycystic ovary Z84.2 Active 262578060 Problem Hirsuties L68.0 Active 820464084 Problem Asthma J45.909 Active 067214722 Problem Chronic pancreatitis K86.1 Active 392967362 Problem Trichotillomania F63.3 Active 63092882 Problem Restless leg syndrome G25.81 Active 69463307 Problem Generalized social phobia F40.11 Active 85749956 Problem Primary osteoarthritis of right knee M17.11 Active 566075833208013 Problem Atelectasis J98.11 Active 90125512 Problem History of renal cell carcinoma Z85.528 Active 665709550 Problem Obesities, morbid E66.01 Active 537586130 Problem Polydipsia R63.1 Active 93503200 Problem Nodule of left lung R91.1 Active 777549272 Problem Chronic post-traumatic stress disorder (PTSD) F43.12 Active 258230810 Problem Moderate episode of recurrent major depressive disorder F33.1 Active 781838342 Problem Chronic fatigue R53.82 Active 36476825 Problem Intestinal malabsorption, unspecified K90.9 Active 10816672 ALLERGIES No Information ENCOUNTERS Encounter Location Date Diagnosis [facility] [address] [facility] [id number], [place] [address] October, [facility] [address] [facility] [id number], [place] [address] October, [address] [address] Sep, [facility] [address] [facility] [id number], [place] [address] Sep, [facility] [address] [facility] [id number], [place] [address] Sep, [facility] [address] [facility] [id number], [place] [address] Sep, [facility] [address] [facility] [id number] [place] [address] 76120- 5018 Sep, Lower extremity edema R60.0 [facility] [address] [facility] [id number] [place] [address] 45646- 0967 Sep, [facility] [address] [facility] [id number], [place] [address] Sep, Lower extremity edema R60.0 and Morbid obesity E66.01 [facility] [address] [facility] [id number], [place] [address] Sep, [facility] [address] [facility] [id number], [place] [address] Sep, [facility] [address] [facility] [id number], [place] [address] Aug, [facility] [address] [facility] [id number], [place] [address] Aug, Obesities, morbid E66.01 and Morbid obesity E66.01 [facility] [address] [facility] [id number], [place] [address] Aug, [facility] [address] [place] [address] Jul, [facility] [address] [facility] [id number], [place] [address] Jul, [facility] [address]65[address], [place] [address] Jul, [facility] [address], [place] [address] Jul, [facility] [address] [place] [id number] [place] [address] 20312- 8362 Jul, Numbness of right hand R20.0 [facility] [address] [place] [id number] [place] [address] 15961- 1355 Jul, Numbness of right hand R20.0 [facility] [address] [id number] [place] [address] 92650- 0293 Jul, [facility] [id number] [place] [address] 64437- 6357 Jul, [facility] [id number] [place] [address] 58025- 1844 Jul, Right-sided thoracic back pain M54.6 [facility] [id number] [place] [address] 02844- 6807 Jul, [facility] [id number] [place] [address] 34281- 0298 Jul, [facility] [id number] [place] [address] 80457- 4000 Jul, [facility] [id number] [place] [address] 84405- 6310 Jul, [facility] [id number] [place] [address] 94127- 3568 Jun, [facility] [id number] [place] [address] 37188- 8168 Jun, Acute pain of right shoulder M25.511 ; Numbness of right hand R20.0 and Trapezius muscle spasm M62.838 [facility] [address], [place] [address] Jun, [facility] [id number] [place] [address] 26257- 1032 Jun, [facility] [id number] [place] [address] 95447- 1779 Jun, Cough R05 ; BMI 50.0-59.9, adult Z68.43 and Morbid obesity E66.01 [facility] [address] [id number] [place] [address] 21211- 4317 Jun, [facility] [address] [address]- 4781 Jun, [facility] [id number] [place] [address] 79907 -5530 Jun, BMI 45.0-49.9, adult Z68.42 and Acute non-recurrent maxillary sinusitis J01.00 [facility] [id number] [place] [address] 22694 -2939 Jun, Acute sinusitis J01.90 ; Dysuria R30.0 and BMI 45.0-49.9, adult Z68.42 [facility] [id number] [place] [address] 23404- 4280 Jun, [facility] [id number] [place] [address] 37791- 8303 Jun, [facility] [id number] [place] [address] 41496- 3229 May, [facility] [id number] [place] [address] 92442- 7963 May, [facility] [id number] [place] [address] 34008- 1818 May, [facility] [id number] [place] [address] 63296- 2908 May, [facility] [id number] [place] [address] 14229- 5156 May, [facility] [id number] [place] [address] 78149- 6613 Apr, Generalized social phobia F40.11 ; Trichotillomania F63.3 ; Chronic post-traumatic stress disorder (PTSD) F43.12 and BMI 45.0-49.9, adult Z68.42 [place] [address] [id number] [place] [address] 47896- 1022 Apr, [place] [address] [id number] [place] [address] 23134- 9104 Apr, Chronic tension-type headache, intractable G44.221 [place] [address] 57316- 3136 Apr, [facility] [address] [address] Mar, [facility] [address] [address]8005 Mar, BMI 45.0-49.9, adult Z68.42 and Pimples R23.8 [place] [address] [place] [id number] [place] [address] 39960- 8511 Mar, [place] [address] [place] [id number] [place] [address] 07459- 6070 Mar, [place] [id number] [place] [address] 58284- 3814 Mar, Decreased urination R34 ; Chronic fatigue R53.82 ; Peripheral edema R60.9 ; Diarrhea, unspecified type R19.7 ; Non-intractable vomiting with nausea, unspecified vomiting type R11.2 ; BMI 45.0-49.9, adult Z68.42 and Chronic post-traumatic stress disorder (PTSD) F43.12 [place] [id number] [place] [address] 42523- 3216 Mar, Intestinal malabsorption, unspecified K90.9 ; Diarrhea, unspecified R19.7 ; Urinary urgency R39.15 ; Rectal bleeding K62.5 and Decreased urine output R34 [place] [address] [id number] [place] [address] 59604- 1192 Mar, Decreased urine output R34 [facility] [id number] [place] [address] 02996- 4829 Mar, Rectal bleeding K62.5 [facility] [id number] [place] [address] 28227- 3421 Mar, Rectal bleeding K62.5 [facility] [id number] [place] [address] 28902- 3570 Mar, Urinary urgency R39.15 [facility] [id number] [place] [address] 78045- 9683 Mar, Urinary urgency R39.15 [facility] [id number] [place] [address] 13760- 4885 Mar, Primary osteoarthritis of right knee M17.11 and BMI 45.0- 49.9, adult Z68.42 [facility] [id number] [place] [address] 70971- 3879 Mar, [facility] [id number] [place] [address] 85038- 8107 Feb, Left upper arm pain M79.622 [facility] [id number] [place] [address] 00399- 9172 Feb, [facility] [id number] [place] [address] 77646- 2297 Jan, Acute pain of right knee M25.561 ; Right upper quadrant abdominal pain R10.11 and BMI 45.0-49.9, adult Z68.42 [facility] [id number] [place] [address] 12262- 0943 Jan, [facility] [id number] [place] [address] 97048- 5125 Jan, [facility] [id number] [place] [address] 00310- 0201 Dec, [facility] [address], [place] [address]- 0650 Dec, Intestinal malabsorption, unspecified K90.9 and Diarrhea, unspecified R19.7 [facility] [address], [place] [address]- 8243 Dec, [facility] [id number] [place] [address] 97078- 4930 Dec, Strep throat J02.0 ; Intestinal malabsorption, unspecified K90.9 ; Diarrhea, unspecified R19.7 ; Postoperative seroma involving digestive system after non-digestive system procedure K91.873 ; Hyperlipidemia, mixed E78.2 and BMI 45.0-49.9, adult Z68.42 [facility] [id number] [place] [address] 27879- 1591 Dec, [facility] [id number] [place] [address] 11158- 9914 Dec, Nausea R11.0 [facility] [id number] [place] [address] 50932- 6964 Dec, [facility] [id number] [place] [address] 22642 -6922 Dec, Sore throat J02.9 ; Strep throat J02.0 and BMI 45.0-49.9, adult Z68.42 [facility] [address], [place] [address]- 3914 Dec, [facility] [address], [place] [address]- 4672 Dec, [facility] [id number] [place] [address] 07981- 5194 Dec, [facility] [id number] [place] [address] 97796- 2297 Dec, [facility] [id number] [place] [address] 93458- 8670 Dec, [facility] [id number] [place] [address] 19866- 8365 Dec, [facility] [id number] [place] [address] 20574- 9301 Dec, [facility] [id number] [place] [address] 51332- 1324 Dec, [facility] [id number] [place] [address] 73646- 9320 Dec, Clostridium difficile colitis A04.72 ; Intractable vomiting with nausea, unspecified vomiting type R11.2 and BMI 45.0-49.9, adult Z68.42 [place] [id number] [place] [address] 53087- 1664 Dec, [facility] [id number] [place] [address] 45890- 9885 Nov, [facility] [id number] [place] [address] 78064- 3208 Nov, [facility] [id number] [place] [address] 08981- 6896 Nov, [facility] [id number] [place] [address] 68539- 3714 Nov, [facility] [id number] [place] [address] 93872 -7803 Nov, [facility] [id number] [place] [address] 07998- 4079 Nov, Hyperlipidemia, mixed E78.2 [facility] [address] 41851 -9008 Nov, Acute suppurative otitis media of right ear without spontaneous rupture of tympanic membrane, recurrence not specified H66.001 and BMI 45.0-49.9, adult Z68.42 [facility] [address] 99462- 3649 Nov, Hyperlipidemia, mixed E78.2 [place] [address] [address]- 1317 Nov, [place] [id number] [place] [address] 56958- 8100 Nov, [place] [address] [id number] [place] [address] 83460- 2386 Nov, Nodule of left lung R91.1 [place] [id number] [place] [address] 79725- 5689 Nov, Medicare annual wellness visit, initial Z00.00 [...] adult Z68.42 and Encounter for immunization Z23 [place] [id number] [place] [address] 40816- 8091 October, [place] [id number] [place] [address] 10982- 5867 October, Nodule of left lung R91.1 [place] [address] [id number] [place] [address] 95135- 9073 October, Nodule of left lung R91.1 [place] [id number] [place] [address] 88392- 4090 October, Recurrent major depressive disorder, in partial remission F33.41 ; Restless leg syndrome G25.81 ; Generalized social phobia F40.11 ; Chronic post-traumatic stress disorder (PTSD) F43.12 ; BMI 45.0-49.9, adult Z68.42 and Trichotillomania F63.3 [address], [place] [address]- 1789 October, [facility] [id number] [place] [address] 89729- 7476 Sep, Chronic fatigue R53.82 and BMI 45.0-49.9, adult Z68.42 [facility] [id number] [place] [address] 95336- 3486 Aug, [facility] [id number] [place] [address] 10822- 9151 Jul, Restless leg syndrome G25.81 and B12 deficiency E53.8 [facility] [id number] [place] [address] 14668- 5226 Jul, [facility] [id number] [place] [address] 31155- 9726 Jul, [facility] [id number] [place] [address] 27484- 1620 Jun, [facility] [id number] [place] [address] 66595- 9684 Jun, Fatigue, unspecified type R53.83 ; History of renal cell carcinoma Z85.528 ; Chronic pancreatitis K86.1 ; Restless leg syndrome G25.81 ; Dark urine R82.99 and BMI 45.0-49.9, adult Z68.42 [facility] [id number] [place] [address] 00484- 6536 Jun, [facility] [id number] [place] [address] 39875- 1196 Jun, [facility] [id number] [place] [address] 19955- 8042 Jun, [facility] [id number], [place] [address]- 8696 Jun, [facility] [id number] [place] [address] 92245- 7416 May, Chronic post-traumatic stress disorder (PTSD) F43.12 ; Moderate episode of recurrent major depressive disorder F33.1 ; Trichotillomania F63.3 and Generalized social phobia F40.11 [place] [address], [place] [address]- 5142 May, [place] [address], [place] [address]- 6930 May, Chronic post-traumatic stress disorder (PTSD) F43.12 ; Moderate episode of recurrent major depressive disorder F33.1 ; Trichotillomania F63.3 and Generalized social phobia F40.11 [place] [id number] [place] [address] 56951- 7582 May, Hyperlipidemia, mixed E78.2 ; Morbid (severe) obesity due to excess calories E66.01 ; Chronic post-traumatic stress disorder (PTSD) F43.12 ; Moderate episode of recurrent major depressive disorder F33.1 ; Trichotillomania F63.3 and Generalized social phobia F40.11 [place] [address], [place] [address]- 4476 Apr, [place] [id number] [place] [address] 80080- 4023 Apr, Hyperlipidemia, mixed E78.2 ; Morbid (severe) obesity due to excess calories E66.01 ; Chronic post-traumatic stress disorder (PTSD) F43.12 ; Moderate episode of recurrent major depressive disorder F33.1 ; Trichotillomania F63.3 and Generalized social phobia F40.11 [place] [address], [place] [address]- 4744 Apr, Trichotillomania F63.3 ; Generalized social phobia F40.11 ; Chronic post-traumatic stress disorder (PTSD) F43.12 and Moderate episode of recurrent major depressive disorder F33.1 [place] [address], [place] [address]- 4707 Apr, [place] [id number] [place] [address] 22387- 6365 Apr, [place] [id number] [place] [address] 99346- 2466 Mar, Moderate episode of recurrent major depressive disorder F33.1 ; Trichotillomania F63.3 ; Chronic post-traumatic stress disorder (PTSD) F43.12 ; Generalized social phobia F40.11 and Restless leg syndrome G25.81 [place] [address] 60771- 1056 Mar, [place] [address] 70364- 1566 Mar, [place] [address] 72678- 8031 Feb, Left kidney mass N28.[address] 52358- 5303 Jan, [place] [id number] [place] [address] 23771- 4008 Dec, Polydipsia R63.1 ; Chronic pancreatitis K86.1 and Fatigue, unspecified type R53.83 [place] [id number] [place] [address] 24132- 5997 Nov, [place] [id number] [place] [address] 06876- 1657 Nov, [place] [id number] [place] [address] 80447- 0514 Nov, Headache around the eyes R51 [place] [id number] [place] [address] 65424- 8352 Nov, [place] [id number] [place] [address] 62118- 1689 October, STD exposure Z20.[address] 24478- 9995 October, STD exposure Z20.2 [place] [id number] [place] [address] 46414- 7848 October, Chronic post-traumatic stress disorder (PTSD) F43.12 ; Generalized social phobia F40.11 ; Trichotillomania F63.3 and Restless leg syndrome G25.81 [place] [id number] [place] [address] 85110- 5523 October, [facility] [id number] [place] [address] 46339- 4419 Sep, [place] [id number] [place] [address] 99201- 4767 Aug, [place] [id number] [place] [address] 53975- 5048 Aug, [place] [id number] [place] [address] 14255- 3410 Aug, Neck mass R22.1 [place] [id number] [place] [address] 53258- 1796 Aug, Atelectasis J98.11 [place] [id number] [place] [address] 36526- 8032 28 Jul, 2016 Hyperlipidemia, mixed E78.2 ; Atypical pneumonia J18.9 and Neck mass R22.1 [place] [id number] [place] [address] 10337- 3386 15 Jul, 2016 Hemoptysis R04.2 [place] [id number] [place] [address] 99508- 0343 08 Jul, 2016 Acute non-recurrent pansinusitis J01.40 ; Hemoptysis R04.2 ; Polydipsia R63.1 and Malaise R53.81 [facility] [id number] [address] May, Other viral agents as the cause of diseases classified elsewhere B97.89 and Acute upper respiratory infection, unspecified J06.9 [id number] [address] Mar, Nausea R11.0 [facility] [place] [id number] [place] [phone] 28 Dec, 2015 Hives L50.9 [place] [address] [place] [id number] [place] [address] [phone] 14 Dec, 2015 [facility] [place] [address] [place] [id number] [place] [phone] Dec, Cutaneous abscess of limb, unspecified L02.419 ; Cellulitis of unspecified part of limb L03.119 ; Encounter for incision and drainage procedure Z01.89 and Encounter for recheck of abscess following incision and drainage Z09 [facility] [place] [id number] [place] [id number] Dec, Abscess of leg, right L02.415 [place] [address] [place] [id number] [place] [address] Dec, Cellulitis of unspecified part of limb L03.119 and Cutaneous abscess of limb, unspecified L02.419 [place] [address] [id number] [place] [phone] Dec, [place] [address] [place] [id number] [place] [address] [phone] Dec, [facility] [place] [address] [id number] [place] [phone] Aug, [place] [address] [place] [id number] [place] [address] [phone] Aug, [facility] [place] [address] [id number] [place] [address] 27922 [phone] 04 Jul, 2015 Pain in unspecified wrist M25.539 and Back pain, thoracic M54.6 [facility] [place] [place] [address] [id number] [place] [address] -0809 Jun, Strain of right wrist, initial encounter S66.911A [place] [address] [address]- 2641 Jun, Chronic pancreatitis, unspecified pancreatitis type K86.1 ; Hirsuties L68.0 ; Morbid (severe) obesity due to excess calories E66.01 ; Chronic pancreatitis K86.1 and Asthma J45.909 [place] [address] [address]70- 0583 May, [place] [address] 35332- 8799 May, Hyperlipidemia, mixed E78.2 and Muscle spasm of back M62.[address] [address]- 1769 Apr, [address] [address]19- 9112 Apr, Torticollis M43.6 [place] [address] 19450- 5333 Apr, Right-sided thoracic back pain M54.6 [place] [id number] [place] [address] 40675- 1615 Mar, Rash R21 [place] [id number] [place] [address] 80286- 8943 Mar, [place] [id number] [place] [address] 31000- 6787 Jan, [place] [address] 45491- 8780 Dec, [place] [address] 35020- 3366 Dec, Urinary frequency 788.41 and Nocturia more than twice per night 788.43 [place] [address] 55741- 4188 Nov, [facility] [id number] [address] Nov, [facility] [id number] [address] 4260 Nov, Abdominal pain 789.00 [facility] [id number] [address] 6833 October, TDAP DX V06.1 [facility] [id number] [address] 5[address] October, [facility] [id number] [place] [address] 76539- 4669 October, Disturbance of skin sensation 782.0 ; Wrist pain, right 719.43 ; Hyperlipidemia 272.4 and Skin lesion of face 709.9 [facility] [id number], [place] [address] 3065 Sep, [facility] [id number], [place] [address]- 3136 Sep, [facility] [id number] [address]- 8364 Aug, [facility] [id number], [place] [address]- 5473 Aug, [facility] [id number], [place] [address]- 3880 Aug, [facility] [address] [address] 8747 23 Aug, 2014 [facility] [id number], [place] [address] 2148 Aug, [facility] [address], [place] [address]- 7836 16 Aug, 2014 [facility] [id number] 2591 14 Aug, 2014 [facility] [place] [facility] [address] [id number] [place] [address]- 3564 14 Aug, 2014 [facility] [place] [facility] [address] [id number] [place] [address]- 8276 Aug, [facility] [place] [facility] [address] [id number] [place] [address]- 3866 Aug, [facility] [place] [facility] [address] [id number] [place] [address]- 3054 Aug, [facility] [place] [facility] [address] [id number] [place] [address]- 7815 Aug, [facility] [place] [facility] [address] [id number] [place] [address]- 5019 Aug, [facility] [place] [facility] [address] [id number] [place] [address]- 6295 Aug, [facility] [place] [facility] [address] [id number] [place] [address]- 5210 Jul, [facility] [place] [facility] [address] [id number] [place] [address]- 2449 Jul, [facility] [place] [facility] [address] [id number] [place] [address]- 1537 Jul, [facility] [place] [facility] [address] [id number] [place] [address]- 9846 Jul, [facility] [place] [facility] [address] [id number] [address]- 9531 Jul, [facility] [place] [facility] [address] [id number] [place] [address]- 9883 Jul, [facility] [place] [facility] [address] [id number] [place] [address]- 5137 Jun, [facility] [place] [facility] [address] [id number] [place] [address]- 7101 Jun, [facility] [place] [facility] [address] [id number] [place] [address]- 7101 Jun, [facility] [address] [id number] [place] [address]- 5329 Jun, [facility] [address] [id number] [place] [address]- 3611 Jun, [facility] [address] [id number] [place] [address]- 1387 Jun, [facility] [address] [id number] [place] [address]- 9085 15 Jun, 2014 [facility] [address] [id number] [place] [address]- 9074 15 Jun, 2014 [facility] [address] [id number] [place] [address]- 4124 May, [facility] [address] [id number] [place] [address]- 6303 May, [facility] [address] [id number] [place] [address]- 9651 May, [facility] [address] [id number] [place] [address]- 5266 May, [facility] [address] [id number] [place] [address]- 7045 15 May, 2014 [facility] [place] [facility] [address] [id number] [place] [address]- 7118 15 May, 2014 [facility] [address] [id number] [place] [address]- 7717 May, [facility] [place] [facility] [address] [id number] [place] [address]- 0424 May, [facility] [place] [facility] [address] [id number] [place] [address]- 5738 May, [facility] [address] [id number] [place] [address]- 9065 May, [facility] [place] [facility] [address] [id number] [place] [address]- 9028 May, [facility] [place] [facility] [address] [id number] [place] [address]- 0882 May, [facility] [place] [facility] [address] [id number] [place] [address]- 0517 Apr, [facility] [place] [facility] [address] [id number] [place] [address]- 4634 Apr, [facility] [place] [facility] [address] [id number] [place] [address]- 9779 Apr, [facility] [place] [facility] [address] [id number] [place] [address]- 5272 Apr, [facility] [place] [facility] [address] [id number] [place] [address]- 5704 Apr, [facility] [place] [facility] [address] [id number] [place] [address]- 6588 Apr, [facility] [place] [facility] [address] [id number] [place] [address]- 7383 Apr, [facility] [place] [facility] [address] [id number] [place] [address]- 7728 Apr, [facility] [place] [facility] [address] [id number], [place] [address]- 6379 Apr, [facility] [place] [facility] [address] [id number], [place] [address]- 2664 Apr, [facility] [place] [facility] [address] [id number] [place] [address]- 9902 Apr, [facility] [place] [facility] [address] [id number] [place] [address]- 7076 Apr, [facility] [place] [facility] [address] [id number], [place] [address]- 2456 14 Mar, 2014 [facility] [place] [facility] [address] [id number], [place] [address]- 8296 Mar, [facility] [place] [facility] [address] [id number] [place] [address]- 0837 Mar, [facility] [place] [facility] [address] [id number] [place] [address]- 4267 Mar, [facility] [place] [facility] [address] [id number] [place] [address]- 7262 Feb, [facility] [place] [facility] [address] [id number] [place] [address]- 8761 Feb, [facility] [place] [facility] [address] [id number] [place] [address]- 6763 Feb, [facility] [place] [facility] [address] [id number] [place] [address]- 5652 Feb, [facility] [place] [facility] [address] [id number] [place] [address]- 5225 Feb, [facility] [place] [facility] [address] [id number] [place] [address]- 9210 Feb, [facility] [place] [facility] [address] [id number] [place] [address]- 8398 Jan, [facility] [place] [facility] [address] [id number] [place] [address]- 8568 Jan, [facility] [place] [facility] [address] [id number] [place] [address]- 2388 Jan, [facility] [place] [facility] [address] [id number] [place] [address]- 8277 Jan, [facility] [place] [facility] [address] [id number] [place] [address]- 6573 Jan, [facility] [place] [facility] [address] [id number] [place] [address]- 8627 Jan, [facility] [place] [facility] [address] [id number] [place] [address]- 3698 Jan, [facility] [place] [facility] [address] [id number] [place] [address]- 3964 Jan, [facility] [place] [facility] [address] [id number] [place] [address]- 6911 Jan, [facility] [place] [facility] [address] [id number] [place] [address]- 5645 Jan, [facility] [place] [facility] [address] [id number] [place] [address]- 9063 Jan, [facility] [place] [facility] [address] [id number] [place] [address]- 7230 Jan, [facility] [place] [facility] [address] [id number] [place] [address]- 4311 Jan, [facility] [place] [facility] [address] [id number] [place] [address]- 7100 Jan, [facility] [place] [facility] [address] [id number] [place] [address]- 5934 Dec, [facility] [place] [facility] [address] [id number] [place] [address]- 4746 Dec, [facility] [place] [facility] [address] [id number] [place] [address]- 4297 Dec, [facility] [place] [facility] [address] [id number] [place] [address]- 1738 Dec, [facility] [place] [facility] [address] [id number] [place] [address]- 4941 Nov, [facility] [place] [facility] [address] [id number] [place] [address]- 8238 Nov, [facility] [place] [facility] [address] [id number] [place] [address]- 1035 Nov, [facility] [place] [facility] [address] [id number] [place] [address]- 1472 Nov, [facility] [place] [facility] [address] [id number] [place] [address]- 1133 Nov, [facility] [place] [facility] [address] [id number] [place] [address]- 8914 October, [facility] [place] [facility] [address] [id number] [place] [address]- 4389 October, [facility] [place] [facility] [address] [id number] [place] [address]- 8496 October, [facility] [place] [facility] [address] [id number] [place] [address]- 0815 October, [facility] [place] [facility] [address] [id number] [place] [address]- 6047 October, [facility] [place] [facility] [address] [id number] [place] [address]- 2596 October, [facility] [place] [facility] [address] [id number] [place] [address]- 1883 October, [facility] [place] [facility] [address] [id number] [place] [address]- 7509 October, [facility] [place] [facility] [address] [id number] [place] [address]- 1284 October, [facility] [place] [facility] [address] [id number] [place] [address]- 5171 October, [facility] [place] [facility] [address] [id number] [place] [address]- 2239 October, [facility] [place] [facility] [address] [id number] [place] [address]- 2822 October, [facility] [place] [facility] [address] [id number] [place] [address]- 8603 October, [facility] [place] [facility] [address] [id number] [place] [address]- 1550 October, [facility] [place] [facility] [address] [id number] [place] [address]- 3406 Sep, [facility] [place] [facility] [address] [id number] [place] [address]- 7234 17 Sep, 2013 [facility] [place] [facility] [address] [id number] [place] [address]- 2225 14 Sep, 2013 [facility] [place] [facility] [address] [id number] [place] [address]- 2650 14 Sep, 2013 [facility] [place] [facility] [address] [id number] [place] [address]- 8631 Sep, [facility] [place] [facility] [address] [id number] [place] [address]- 1823 Sep, [facility] [place] [facility] [address] [id number] [place] [address]- 1551 Sep, [facility] [place] [facility] [address] [id number] [place] [address]- 4197 Sep, [facility] [place] [facility] [address] [id number] [place] [address]- 1587 Sep, [facility] [place] [facility] [address] [id number] [place] [address]- 8337 Sep, [facility] [place] [facility] [address] [id number] [place] [address]- 5199 Sep, [facility] [place] [facility] [address] [id number] [place] [address]- 6277 Sep, [facility] [place] [facility] [address] [id number] [place] [address]- 5800 Sep, [facility] [place] [facility] [address] [id number] [place] [address]- 9838 Sep, [facility] [place] [facility] [address] [id number] [place] [address]- 8728 Sep, [facility] [place] [facility] [address] [id number] [place] [address]- 2998 Aug, [facility] [place] [facility] [address] [id number] [place] [address]- 9936 Aug, [facility] [place] [facility] [address] [id number] [place] [address]- 3037 Aug, [facility] [place] [facility] [address] [id number] [place] [address]- 4445 Aug, [facility] [place] [facility] [address] [id number] [place] [address]- 4339 Jul, [facility] [place] [facility] [address] [id number] [place] [address]- 0528 Jul, [facility] [place] [facility] [address] [id number] [place] [address]- 7348 Jul, [facility] [place] [facility] [address] [id number] [place] [address]- 1721 Jul, [facility] [place] [facility] [address] [id number] [place] [address]- 1346 Jun, [facility] [place] [facility] [address] [id number] [place] [address]- 0246 Jun, [facility] [place] [facility] [address] [id number] [place] [address]- 6732 Jun, [facility] [place] [facility] [address] [id number] [place] [address]- 0982 Jun, [facility] [place] [facility] [address] [id number] [place] [address]- 1592 Jun, [facility] [place] [facility] [address] [id number] [place] [address]- 7882 Jun, [facility] [place] [facility] [address] [id number] [place] [address]- 3764 Jun, [facility] [place] [facility] [address] [id number] [place] [address]- 0494 Jun, [facility] [place] [facility] [address] [id number] [place] [address]- 4596 May, [facility] [place] [facility] [address] [id number] [place] [address]- 5621 20 May, 2013 [facility] [address] [id number] [place] [address]- 2505 18 May, 2013 [facility] [address] [id number] [place] 1594 18 May, 2013 [facility] [address] [id number] [place] 4264 17 May, 2013 [facility] [address] [id number] [place] [id number] 17 May, 2013 [facility] [address] [id number] [place] [address]- 2005 17 May, 2013 [facility] [address] [id number] [place] [address]- 0845 17 May, 2013 [facility] [address] [id number] [place] [address]- 1051 16 May, 2013 [facility] [address] [id number] [place] [address]- 5704 16 May, 2013 [facility] [address] [id number] [place] [address]- 6616 14 May, 2013 [facility] [address] [id number] [place] [address]- 7648 14 May, 2013 [facility] [address] [id number] [place] [address]- 6373 13 May, 2013 [facility] [address] [id number] [place] [address]- 8860 13 May, 2013 [facility] [address] [id number] [place] [address]- 9720 12 May, 2013 [facility] [address] [id number] [place] [address]- 1881 12 May, 2013 [facility] [address] [id number] [place] [address]- 9242 11 May, 2013 [facility] [place] [facility] [address] [id number] [place] [address] 2546 May, [facility] [address] [id number] [place] [address]- 5629 Apr, [facility] [address] [id number] [place] [address] 2546 Apr, [facility] [address] [id number] [place] [address]- 5896 Apr, [facility] [address] [id number] [place] [address]- 2342 Apr, [facility] [address] [id number] [place] [address]- 6836 Aug, [facility] [address] [id number] [place] [address]- 6886 Aug, [facility] [address] [id number] [place] [address]- 9526 Aug, [facility] [address] [id number] [place] [address]- 6402 05 Aug, 2012 [facility] [address] [id number] [place] [address]- 1061 Jul, [facility] [address] [id number] [place] [address]- 7879 Jun, [facility] [address] [id number] [place] [address]- 8414 Jun, [facility] [address] [id number] [place] [address]- 2546 Jun, [facility] [address] [id number] [place] [address]- 2546 Jun, [facility] [address] [id number] [place] [address]- 2546 May, [facility] [address] [id number] [place] [address]- 9343 May, [facility] [place] [facility] [address] [id number] [place] [address]- 8543 May, [facility] [place] [facility] [address] [id number] [place] [address]- 4233 May, [facility] [place] [facility] [address] [id number] [place] [address] May, [facility] [place] [facility] [address] [id number] [place] [address] 0360 May, [facility] [place] [facility] [address] [id number] [place] [address] 8795 May, [facility] [place] [facility] [address] [id number] [place] [address] 7944 Apr, [facility] [place] [facility] [address] [facility] [id number] [place] [address] 17[address] Apr, [facility] [place] [facility] [address] [id number], [place] [address] Apr, [facility] [place] [facility] [address] [id number], [place] [address] Apr, [facility] [place] [facility] [address] [id number], [place] [address] Apr, [facility] [place] [facility] [address] [id number], [place] [address] Apr, [facility] [place] [facility] [address] [id number], [place] [address]- 16[address] Apr, [facility] [place] [facility] [address] [id number], [place] [address] Mar, [facility] [place] [facility] [address] [id number], [place] [address] Mar, [facility] [place] [facility] [address] [facility] [id number], [place] [address] Mar, [facility] [place] [facility] [address] [id number] [place] [address]- 4136 Mar, [facility] [place] [facility] [address] [id number] [place] [address]- 3393 Mar, 2011 [facility] [place] [facility] [address] [id number] [place] [address]- 9421 Mar, [facility] [place] [facility] [address] [id number] [place] [address]- 8528 Mar, [facility] [place] [facility] [address] [id number] [place] [address]- 0492 Mar, [facility] [place] [facility] [address] [id number] [place] [address]- 4111 Mar, [facility] [place] [facility] [address] [id number] [place] [address]- 3450 Mar, [facility] [place] [facility] [address] [id number] [place] [address]- 3148 Mar, [facility] [place] [facility] [address] [id number] [place] [address]- 8432 Mar, [facility] [place] [facility] [address] [id number] [place] [address]- 8792 Feb, [facility] [place] [facility] [address] [facility] [id number] [place] [address]- 0197 Jan, [facility] [place] [facility] [address] [id number] [place] [address]- 0991 14 Jan, 2012 [facility] [place] [facility] [address] [id number] [place] [address]- 0552 Jan, [facility] [place] [facility] [address] [id number] [place] [address]- 2335 Jan, [facility] [place] [facility] [address] [id number] [place] [address]- 8677 Jan, [facility] [place] [facility] [address] [facility] [id number] [place] [address]- 0334 Dec, [facility] [place] [facility] [address] [id number] [place] [address]- 1510 Dec, [facility] [address] [id number] [place] [address]- 8763 Nov, [facility] [place] [facility] [address] [id number] [place] [address] Nov, [facility] [place] [facility] [address] [id number] [place] [address] 1977 Nov, [facility] [place] [facility] [address] [id number] [place] [address]- 7724 October, [facility] [place] [facility] [address] [id number] [place] [address]- 1243 October, [facility] [place] [facility] [address] [id number] [place] [address]- 1478 October, [facility] [address] [id number] [place] [address]- 6527 October, [facility] [place] [facility] [address] [id number] [place] [address]- 6345 October, [facility] [place] [facility] [address] [id number] [place] [address]- 4997 October, [facility] [place] [facility] [address] [id number] [place] [address]- 3676 October, [facility] [place] [facility] [address] [id number] [place] [address]- 455[address] Sep, [facility] [place] [facility] [address] [id number] [place] [address]- 2152 Sep, [facility] [place] [facility] [address] [id number] [place] [address]- 1544 Sep, [facility] [place] [facility] [address] [id number] [place] [address]- 3426 Sep, [facility] [place] [facility] [address] [id number] [place] [address] 24 Sep, 2011 [facility] [place] [facility] [address] [id number] [place] [address]- 1900 19 Sep, 2011 [facility] [place] [facility] [address] [id number] [place] [address]- 3576 17 Sep, 2011 [facility] [place] [facility] [address] [id number] [place] [address] 16 Sep, 2011 [facility] [place] [facility] [address] [id number] [place] [address]- 9189 16 Sep, 2011 [facility] [place] [facility] [address] [id number] [place] [address]- 0667 14 Sep, 2011 [facility] [place] [facility] [address] [id number] [place] [address]- 8309 13 Sep, 2011 [facility] [place] [facility] [address] [id number] [place] [address]- 5482 10 Sep, 2011 [facility] [place] [facility] [address] [id number] [place] [address]- 3437 09 Sep, 2011 [facility] [place] [facility] [address] [id number] [place] [address]- 8428 27 Aug, 2011 [facility] [place] [facility] [address] [id number] [place] [address]- 5342 Aug, [facility] [place] [facility] [address] [id number] [place] [address]- 9389 08 Aug, 2011 [facility] [place] [facility] [address] [id number] [place] [address]- 4022 06 Aug, 2011 [facility] [place] [facility] [address] [id number] [place] [address]- 7898 28 Jul, 2011 [facility] [place] [facility] [address] [id number] [place] [address]- 4898 22 Jul, 2011 [facility] [place] [facility] [address] [id number] [place] [address]- 1041 16 Jul, 2011 [facility] [place] [facility] [address] [id number] [place] [address]- 6892 15 Jul, 2011 [facility] [address] [id number] [place] [address]- 2926 14 Jul, 2011 [facility] [place] [facility] [address] [id number] [place] [address]- 4286 10 Jul, 2011 [facility] [address] [id number] [place] [address]- 8296 30 Jun, 2011 [facility] [place] [facility] [address] [id number] [place] [address]- 5007 Jun, [facility] [place] [facility] [address] [id number] [place] [address]- 9272 Jun, [facility] [address] [id number] [place] [address]- 3222 Jun, [facility] [address] [id number] [place] [address]- 5358 Jun, [facility] [address] [id number] [place] [address] 27 May, 2011 [facility] [address] [id number] [place] [address] May, [facility] [address] [id number] [place] [address] 14 May, 2011 [facility] [place] [facility] [address] [id number] [place] [address] 14 May, 2011 [facility] [place] [facility] [address] [id number] [place] [address] 12 May, 2011 [facility] [place] [facility] [address] [id number] [place] [address] 07 May, 2011 [facility] [place] [facility] [address] [id number] [place] [address] 05 May, 2011 [facility] [place] [facility] [address] [id number] [place] [address] 15 Apr, 2011 [facility] [place] [facility] [address] [id number] [place] [address] 15 Apr, 2011 [facility] [place] [facility] [address] [id number] [place] [address] Apr, [facility] [place] [facility] [address] [id number] [place] [address] Apr, [facility] [place] [facility] [address] [id number] [place] [address] Apr, [facility] [place] [facility] [address] [id number] [place] [address] Apr, [facility] [place] [facility] [address] [id number] [place] [address] Mar, [facility] [place] [facility] [address] [id number] [place] [address] Mar, [facility] [place] [facility] [address] [id number] [place] [address] Mar, [facility] [place] [facility] [address] [id number] [place] [address] Mar, [facility] [place] [facility] [address] [id number] [place] [address] Jan, [facility] [place] [facility] [address] [id number] [address] Dec, [facility] [place] [facility] [address] [id number], [place] [address] Dec, [facility] [place] [facility] [address] [id number] [place] [address] October, [facility] [place] [facility] [address] [id number] [place] [address] 20 Sep, 2010 [facility] [place] [facility] [address] [id number] [place] [address] 14 Sep, 2010 [facility] [place] [facility] [address] [id number] [place] [address] 17 Jul, 2010 [facility] [address] [id number] [place] [address] 16 Jul, 2010 [facility] [address] [id number] [place] [address] 31 May, 2010 [facility] [address] [id number] [place] [address] 27 May, 2010 [facility] [address] [id number] [place] [address] 08 May, 2010 [facility] [address] [id number] [place] [address], [place] [address] May, [facility] [address] [id number] [place] [address] Apr, [facility] [address] [id number] [place] [address] Apr, [facility] [address] [id number] [place] [address] Apr, [facility] [address] [id number] [place] [address] Apr, [facility] [address] [facility] [id number] [place] [address] Apr, [facility] [address] [id number] [place] [address] 25[address] Mar, [facility] [address] [id number] [place] [address] 14 Mar, 2010 [facility] [place] [facility] [address] [id number] [place] [address] 2543 13 Mar, 2010 [facility] [place] [facility] [address] [facility] [id number] [place] [address] 12 Mar, 2010 [facility] [place] [facility] [address] [id number] [place] [address] Jan, [facility] [address] [address] Dec, [facility] [address] [address] Sep, [facility] [address], [place] [address] May, [facility] [address], [place] [address] May, [facility] [address] May, [facility] [address] [address] Apr, [facility] [address] Apr, [facility] [address], [place] [address] Apr, [facility] [address], [place] [address] Apr, [facility] [address], [place] [address] Apr, [facility] [id number], [place] [address] Mar, [facility] [id number], [place] [address] Mar, [facility] [address] [id number], [place] [address] Jul, IMMUNIZATIONS No Known Immunizations SOCIAL HISTORY Never Assessed REASON FOR VISIT EMR-[facility] PLAN OF CARE VITAL SIGNS [...] Surgical History hysterectomy- total d/t endometriosis Dr. Beaz 2012 Surgical History orthopedic surgery-coccyx removal w/ [...] [place] 12/20/15 Hospitalization History [facility]- Abd pain 03/07/2017 Hospitalization History [facility]- Abd pain 03/14/2017 Hospitalization History [facility]- No bowel movement, rash 04/13/2017 Hospitalization History [facility]- Abd pain r/t kidney surgery on 04/17/2017 Hospitalization History [facility]- Abd pain r/t kidney surgery on 04/18/2017 Hospitalization History [facility]- Lower abd pain 04/30/2017 Hospitalization History [facility]- Cannot urinate 05/30/2017 Hospitalization History [facility]- Pancreatitis Sx 06/29/2017 Hospitalization History [facility]- Stomach pain 07/22/2017 Hospitalization History [facility]- Left side pain 08/12/2017 Hospitalization History [facility]- Incision site infection 08/30/2017 Hospitalization History [facility]- Post Op Seroma/Hematoma Left Abdomen. Discharged 09/04/17- Dr Daniel 09/02/2017 Hospitalization History [facility]- Right shoulder and back pain 2017 Hospitalization History [facility]- Shoulder/Back pain 11/11/2017 Hospitalization History [facility]- Right shoulder blade pain 12/04/2017 Hospitalization History [facility]- C-Diff 12/13/2017 Hospitalization History C diff et MRSA 12/27/2017
[2018-10-22] MEDS ORDERED: CLINDAMYCIN 600 MG/50 ML IVPB 50 ML IV ONE (07:30)
[2018-10-22] MEDS ORDERED: CATHETER FLUSH 10 ML SYR IV PRN (07:45)
[2018-10-22] MEDS: LACTATED RINGERS 1,000 ML IV PRN ×2 (08:15→10:07)
[2018-10-22] MEDS ORDERED: FAMOTIDINE 20MG/2ML IV (PEPCID) ONE (08:20)
[2018-10-22] MEDS ORDERED: ONDANSETRON 4 MG/2 ML (SDV) Z0FRAN ONE ×2 (08:20→08:40)
[2018-10-22] MEDS ORDERED: ROCURONIUM 10 MG/ML 5 ML SYRINGE IV ONE ×3 (08:40→11:19)
[2018-10-22] MEDS ORDERED: proPOfol 200 MG/20 ML (DIPRIVAN) VIAL IV ONE (08:40)
[2018-10-22] MEDS ORDERED: SEVOFLURANE (ULTANE) 15 ML INHAL SOLN ONE ×9 (08:40→11:43)
[2018-10-22] MEDS ORDERED: HYDROmorphone 2 MG/ML VIAL (DILAUDID) ONE ×3 (08:40→14:18)
[2018-10-22] MEDS ORDERED: DEXAMETHASONE 10 MG/ML (DECADRON) 1 ML VIAL ONE (08:40)
[2018-10-22] MEDS ORDERED: LIDOCAINE PF 2% 5 ML (XYLOCAINE) VIAL ONE (08:40)
--- NOTE | 2018-10-22 08:41 | Progress Note-Pre Operative ---
Pre-Operative Progress Note H&P Reviewed The H&P was reviewed, patient examined and no changes noted. Time Seen by Provider: 08:31 Date H&P Reviewed: October 22, 2018 Time H&P Reviewed: 08:30 Pre-Operative Diagnosis: Retroperitoneal hernia - incarcerated LINDSEY MARROQUIN DO October 22, 2018 08:41
[2018-10-22] MEDS ORDERED: MIDAZOLAM 2 MG/2 ML (VERSED) VIAL ONE (09:04)
[2018-10-22] MEDS ORDERED: BUP/EPI 0.5% 1:200,000 (SENSORCAINE) 30 ML VIAL ONE (09:13)
[2018-10-22] MEDS ORDERED: LIDOCAINE 1% INJ 20 ML 20 ML VIAL ONE (09:13)
[2018-10-22] MEDS ORDERED: ONDANSETRON 4 MG/2 ML (SDV) Z0FRAN IV ONE (09:15)
[2018-10-22] MEDS ORDERED: FAMOTIDINE 20MG/2ML IV (PEPCID) IV ONE (09:15)
[2018-10-22] MEDS ORDERED: CLINDAMYCIN 600 MG/4ML (CLEOCIN) VIAL ONE (09:30)
[2018-10-22] MEDS ORDERED: NEOSTIGMINE 1 MG/ML 5 ML SYRINGE ONE (11:39)
[2018-10-22] MEDS ORDERED: GLYCOPYRROLATE 0.2 MG/ML (ROBINUL) 2 ML VIAL ONE (11:40)
--- NOTE | 2018-10-22 11:53 | Progress Note-Post Operative ---
Post-Operative Progess Note Surgeon (s)/Flying Shear Operator (s) Surgeon LINDSEY MARROQUIN DO Flying Shear Operator: Laura Pre-Operative Diagnosis Retroperitoneal hernia - incarcerated Post-Operative Diagnosis Incarcerated Incisional hernia Mesh Failure Ingrowth of mesh into small bowel Procedure & Operative Findings Date of Procedure 10/22/18 Procedure Performed/Findings Lap Incisional Hernia repair with mesh placement PIEDAD Open Small Bowel resection Anesthesia Type GET Estimated Blood Loss Estimated blood loss (mL): scant Specimens/Packing Specimens Removed hernia contents, mesh, portion of small bowel LINDSEY MARROQUIN DO October 22, 2018 11:53
[2018-10-22] MEDS ORDERED: HYDROmorphone 2 MG/ML VIAL (DILAUDID) IV ONE (12:15)
[2018-10-22] MEDS ORDERED: ONDANSETRON 4 MG/2 ML (SDV) Z0FRAN IVP PRN (12:15)
[2018-10-22] MEDS ORDERED: HYDROmorphone 2 MG/ML VIAL (DILAUDID) IVP ONE (14:30)
[2018-10-22] MEDS ORDERED: rOPINIRole 1 MG (REQUIP) TABLET PO SCH (21:00)
[2018-10-22] MEDS ORDERED: NON-FORMULARY MEDICATION 1 EA EA (Ropinirole HCl 4 MG) PO SCH (21:00)
[2018-10-22] MEDS: HYDROcodone/APAP 10 MG/325 MG (LORTAB) TAB PO PRN (22:04)
--- NOTE | 2018-10-23 00:33 | OPERATIVE REPORT ---
DATE OF SERVICE: PREOPERATIVE DIAGNOSIS: Incarcerated incisional hernia, left lower quadrant pain. POSTOPERATIVE DIAGNOSES: 1. Incarcerated incisional hernia. 2. Adhesions. 3. Ingrowth of mesh into the small bowel. PROCEDURES: 1. Laparoscopic incarcerated incisional herniorrhaphy with mesh placement. 2. Lysis of adhesions. 3. Small bowel resection. SURGEON: Lindsey Roman DO. BODY STRAIGHTENER: Glenn Sanchez DO. ANESTHESIA: General endotracheal tube. SPECIMEN: Hernia contents and a portion of small bowel. BLOOD LOSS: Less than 10 mL. FLUIDS: Per anesthesia. POSTOPERATIVE CONDITION: Stable. INDICATION FOR PROCEDURE: The patient is a 33-year-old female, who has been having continuous left lower quadrant abdominal pain after a previous nephrectomy, had a previous hernia repair and has continued to have pain and then recent CT shows changing and enlarging of the right flank incision through a hernia defect with incarceration of bowel. FINDINGS: The patient had a bowel stuck into this hernia defect as well as ingrowth of mesh into the hernia. Pictures of all this were taken. PROCEDURE NOTE: After informed consent was obtained, the patient was brought to the operating room and placed on the operating table in supine position. She was sterilely prepped and draped in a normal fashion. Local lidocaine was used to infiltrate the skin above the umbilicus. I made an incision with #11 blade, carried down through the skin into the subcutaneous tissue, then deepened down through the subcutaneous tissue with Bovie electrocautery down to the fascia. Fascia was incised with Bovie electrocautery. I bluntly entered the abdomen, swept a finger around, placed 0 Vicryl [id number] suture and placed an 11 mm trocar port under direct visualization. I created pneumoperitoneum and placed two more ports in a normal fashion using local lidocaine, 11 blade was used to make stab incision, one about 10 cm above the umbilicus and one at 10 cm below the umbilicus. Again, using local lidocaine, 11 blade for stab incision and Versed system, all done under direct visualization. The patient was then placed slightly Trendelenburg and rotated little bit to the right. I could see small intestine into the hernia defect, carefully started taking this down with the LigaSure as well as sharp dissection with scissors taking these down. Took about 2 hours to take them down and unfortunately there was mesh and small bowel was stuck right on the mesh. While taking this down, there was one portion of bowel that the mesh had almost ingrown into it and had to cut this away from the abdominal wall with the mesh still intact. Finally, able to get all of the small bowel out of this hernia defect, took pictures, the hernia defect measured about 7 cm x about 4 or 5 cm. At this point, I elected to place a large Bard Echo mesh, the 20 x 15 cm mesh, placed this through 10 the port and then made a small stab incision in the left lower quadrant at the site of previous hernia repair, had actually left cut out some of the mesh and some of the hernia contents, but left some of the mesh in, could not get all of it removed. Able to then grasp the inflation catheter and pulled this through the abdominal wall, then inflated the balloon to hold this mesh up in place and then started tacking it with secure strap, used two secure straps to tack all the way around the edges from 12 o'clock to 6 o'clock and then back to 12 o'clock and then as well on the inside right around the area of the defect and it laid in very nicely. Pictures of this were taken. Removed the balloon through the 11 port. At this point, then elected to make a small incision and increased the midline at the umbilical incision, down around the umbilicus to get a better look at the small intestine and ran the small intestine. There were no holes, but this mesh was grown into the small bowel and felt the safest thing to do was to resect a portion of small bowel, made a defect of the small intestine and placed a NINI-55, one on either limb of small intestin, clamped together and then threw a crotch stitch as well as one in the middle with a 3-0 silk, fired the stapling device, thereby creating a [id number] functional end-to-end anastomosis and then using another reload clamped across the base of the intestine right where the enterotomy was and removed this portion of the intestine as well as the mesh, came off very nicely, there was no spillage of any bowel contents. We switched gloves. Pushed this back in and then elected to close the midline incision with a #1 double stranded PDS suture running from the superior portion to inferior portion tying to itself, copiously irrigated this incision. Placed the camera back in and looked at the small bowel, looked good, mesh still in place. A midline closure looked good. At this point, I then removed the two 5 mm ports. I allowed pneumoperitoneum to escape and then closed all incision with bing. Area was cleaned and dried, dressing was placed. The patient was then transferred to recovery room in stable condition. Sponge, instrument and needle counts correct at the end of the case. Job ID: [id number] DocumentID: [id number] Dictated Date: 10/22/2018 16:47:31 Property Developer Date: 10/23/2018 00:32:29 Dictated By: LINDSEY ROMAN DO MTDCarter
[2018-10-23 00:54] VITALS: BP 113/77
[2018-10-23 04:32] VITALS: BP 118/78
[2018-10-23] MEDS: HYDROcodone/APAP 10 MG/325 MG (LORTAB) TAB PO PRN ×2 (06:51→12:53)
[2018-10-23 08:00] VITALS: BP 113/65
--- NOTE | 2018-10-23 09:20 | Anesthesia-General Post-Op ---
General Patient Condition Mental Status/LOC: Same as Preop Cardiovascular: Satisfactory Nausea/Vomiting: Absent Respiratory: Satisfactory Pain: Controlled Complications: Absent Post Op Complications Complications None Follow Up Care/Instructions Patient Instructions None needed. Anesthesia/Patient Condition Patient Condition Patient is doing well, no complaints, stable vital signs, no apparent adverse anesthesia problems. No complications reported per nursing. ROBB LOVELACE CRNA October 23, 2018 09:20
[2018-10-23 12:00] VITALS: BP 128/82
--- NOTE | 2018-10-23 12:50 | NUR ---
LORTAB [address] MARROQUIN HERE. CHANGED TO REGULAR DIET AND OK FOR DC AFTER LUNCH.
--- NOTE | 2018-10-23 13:06 | Progress Note ---
Subjective Time Seen by a Provider: 12:53 Subjective/Events-last exam Pt seen and examined. States she has some abdominal pain, but mostly controlled. Left side hurts worse and then midline incision. She is tolerating clears. Review of Systems Pulmonary: No Dyspnea, No Cough Cardiovascular: No: Chest Pain, Palpitations Gastrointestinal: No: Nausea, Vomiting Objective Exam Vital Signs Date Time Temp Pulse Resp B/P (MAP) Pulse Ox O2 Delivery O2 Flow Rate FiO2 10/23/18 12:00 99.1 74 18 128/82 (97) 98 Room Air 10/23/18 08:00 Room Air 10/23/18 08:00 97.8 67 20 113/65 (81) 98 Nasal Cannula 2.00 10/23/18 04:32 96.3 71 20 118/78 (91) 96 Nasal Cannula 2.00 10/23/18 00:54 96.2 78 24 113/77 (89) 92 Nasal Cannula 2.00 10/22/18 20:00 Room Air 10/22/18 19:45 98.0 92 20 117/67 (84) 96 Nasal Cannula 2.00 10/22/18 15:56 98.2 80 16 124/64 (84) 95 Nasal Cannula 2.00 10/22/18 13:30 96 Nasal Cannula 3.00 10/22/18 13:10 100.4 92 12 115/67 (83) 95 Nasal Cannula 2.00 I & O 10/23/18 07:00 Intake Total 2880 ml Output Total 2650 ml Balance 230 ml Capillary Refill : Less Than 3 Seconds General Appearance: No Apparent Distress, Obese Respiratory: Chest Non Tender, Lungs Clear Cardiovascular: Regular Rate, Rhythm, No Murmur Gastrointestinal: soft, other (incisions are c/d/i) Assessment/Plan Assessment/Plan Assessment/Plan S/P Lap incarcerated incision hernia repair S/P Partial small bowel resection D/c IV, D/C home Clinical Quality Measures DVT/VTE Risk/Contraindication: Risk Factor Score Per Nursin RFS Level Per Nursing on Admit: 4+=Very High LINDSEY MARROQUIN DO October 23, 2018 13:05
[2018-10-23] MEDS ORDERED: HYDR-3820 PO (13:07)
--- NOTE | 2018-10-23 13:08 | Discharge Inst-Surgical ---
Discharge Inst-Surgical Depart Medication/Instructions New, Converted or Re-Newed RX: RX Given to Pt/Family Patient Instructions Follow up Appt: Make appointment for 1 week. [phone] Instructions: No lifting greater than 20 pounds. No strenuous activity. May shower in 24 hours, no tub bath or soaking. Use incentive spirometer at home as directed. No Smoking Skin/Wound Care: May remove bandages in am. You need to leave the Dermabond on incision it will fall off on it's own. Symptoms to Report: Appetite Changes, Extremity Discoloration, Numbness/Tingling, Swelling Increased , Bleeding Excessive, Eyesight Changes, Pain Increased, Urine Color Change, Constipation(Persistent), Fever over 101 degree F, Pain/Pressure in chest, Urinating Difficulty, Cough Up/Vomit Blood, Heart Beat Irreg/Pounding, Pain/ Pressure in jaw, Cramps in feet or legs, Lightheadedness, Pain/Pressure in shoulder, Diarrhea(Persistent), Memory Changes Suddenly, Questions/Concerns, Weight gain consecutive days, Dizziness/Fainting, Nausea/Vomiting, Shortness of Breath, Weight gain over 2 pounds If questions or concerns contact your physician Or seek help at emergency department. Activity Activity as Tolerated: Yes Activity Instructions: Avoid Stress to Incision Driving Instructions: No Driving/Refer to Dr. Berger Discharge Diet: No Restrictions Diet After 24 Hours: Clear Liquid if Nauseous If Any Problems/Questions/Issu: Contact Your Physician, Go to Emergency Room Skin/Wound Care Infection Signs and Symptoms: Increased Redness, Foul Odor of Wound, Increased Drainage, Skin Itchy or Has a Rash, Increased Swelling, Temperature Above 101 F Bathing Instructions: Shower Stitches/Sheldon/Dermabond Dis: Care of Eliseo Ice Pack: Ice On and Off Site (as needed for pain) LINDSEY MARROQUIN DO October 23, 2018 13:08
--- NOTE | 2018-10-23 15:00 | NUR ---
DC'D PER WC WITH FATHER. RX AND INST AND VERBALIZED UNDERSTANDING.
--- OUTSIDE RECORDS SUMMARY | 2018-10-27 13:01 | XMS REPORT | Encounter Summary ---
Author Author [facility] Organization [facility] Address Unknown Phone Unavailable Care Team Providers Care Social Work Associate Name Role Phone Michael Sutton MD Unavailable Unavailable Mary Whittington MD PCP Jessica Valera Unavailable Maggie Puente Unavailable Unavailable Mary Telles CARAMEL CUTTER HAND Unavailable Bam Ritter MD Unavailable Radha Bo LPN Unavailable Unavailable Jose Sanchez MD Unavailable Reason for Visit * Auth/Cert Referred By Contact Referred To Contact Status Reason Specialty Diagnoses / Procedures Diagnoses Chronic pancreatitis, unspecified pancreatitis type (HCC) Nausea Generalized abdominal pain Chronic pancreatitis, unspecified pancreatitis type (HCC) [K86.1] Nausea [R11.0] Generalized abdominal pain [R10.84] P rocedures ID EGD TRANSORAL BIOPSY SINGLE/MULTIPLE ID EDG US EXAM SURGICAL ALTER STOM DUODENUM/JEJUNUM ESOPHAGOGASTRODUOD ENOSCOPY WITH BIOPSY - FLEXIBLE ESOPHAGOGASTRODUOD ENOSCOPY WITH ENDOSCOPIC ULTRASOUND EXAMINATION - FLEXIBLE Encounter Details Care Team Description Date Type Department Hal Sparks MD [address] [facility] [address] [place] [address] ESOPHAGOGASTRODUODENOSCOPY WITH ENDOSCOPIC ULTRASOUND EXAMINATION - FLEXIBLE 08/22/2018 Surgery [facility] [address] [place] [address] Social History Date Tobacco Use [...] Taken Vital Sign Reading 08/22/2018 8:50 AM INTERVENTIONAL RADIOLOGY TECH Blood Pressure 115/86 08/22/2018 8:54 AM INTERVENTIONAL RADIOLOGY TECH Pulse 89 08/22/2018 8:30 AM INTERVENTIONAL RADIOLOGY TECH Temperature 36.8 C (98.2 F) - Respiratory Rate - 08/22/2018 8:53 AM INTERVENTIONAL RADIOLOGY TECH Oxygen Saturation 96% - Inhaled Oxygen - Concentration 08/22/2018 7:00 AM INTERVENTIONAL RADIOLOGY TECH Weight 122.5 kg (270 lb) 08/22/2018 7:00 AM INTERVENTIONAL RADIOLOGY TECH Height 157.5 cm (5' 2") 08/22/2018 7:00 AM INTERVENTIONAL RADIOLOGY TECH Body Mass Index 49.38 documented in this [...] Mary Lechuga RN - 08/22/2018 8:46 AM INTERVENTIONAL RADIOLOGY TECH EGD/Upper EUS/ERCP/Antegrade Enteroscopy Post Upper Endoscopy Instructions [...] or concerns after your procedure please call [phone] M-F 8am-5:00 pm. After 5:00 pm, holidays or weekends call [phone] and ask for the GI Doctor audio production manager. RVENTIONAL RADIOLOGY TECH documented in this encounter Medications at Time [...] Joel Cantu MD - 08/22/2018 8:12 AM INTERVENTIONAL RADIOLOGY TECH Pre Procedure History and Physical/Sedation Plan Name:Janeth [...] Relevant labs reviewed Joel Cantu MD Pager RVENTIONAL RADIOLOGY TECH documented in this encounter Plan of Treatment Not on filedocumented as of this encounter Procedures Comments Procedure Name Priority Date/Time Associated Diagnosis ESOPHAGOGASTRODUODENOSCOP 08/22/2018 Chronic pancreatitis, Y WITH ENDOSCOPIC 8:00 AM INTERVENTIONAL RADIOLOGY TECH unspecified pancreatitis ULTRASOUND EXAMINATION - type (HCC) [...] () ENDOSCOPIC ULTRASOUND 08/22/2018 REPORT 7:47 AM INTERVENTIONAL RADIOLOGY TECH documented in this encounter Results * ENDOSCOPIC ULTRASOUND REPORT (08/22/2018 7:47 AM INTERVENTIONAL RADIOLOGY TECH) Provation Patient Name: Regulo WILKS OTHER Report Procedure Date: 08/22/2018 7:47 RESULTS AM CSN: [id number] Date of : 1985 Gender: Female Attending Physician: Hal Sparks MD Procedure: Upper EUS Indications: Epigastric abdominal pain, Family h/o chronic pancreatitis, pancreas divisum Providers: Hal Sparks MD (Doctor), Lorenza Powers RN (Nurse), Ana Fuentes (Sales Representative Printing) Referring Physician: Randy Viveros MD Medications: Monitored [...] 55 seconds Procedure Code(s): --- Professional --- 28014, Esophagogastroduodenoscopy, flexible, transoral; with endoscopic ultrasound examination limited to the esophagus, stomach or duodenum, and adjacent structures CPT copyright 2017 [employer]. All rights reserved. The codes documented in this report are preliminary and upon principal associate review may be revised to meet current [...] Medication Order MAR Action 08/22/2018 7:26 AM INTERVENTIONAL RADIOLOGY TECH 1,000 mL sodium chloride 0.9 % infusion Given - New 1,000 mL, Intravenous, CONTINUOUS, Bag Starting Sat08/22/18 at 0730, Until Sat08/22/18 at 1121, Pre-Op documented in this encounter
--- OUTSIDE RECORDS SUMMARY | 2018-10-27 13:01 | XMS REPORT | Encounter Summary ---
Author Author [facility] Organization [facility] Address Unknown Phone Unavailable Care Team Providers Care [employer] Media Specialist Name Role Phone Michael Sutton MD Unavailable Unavailable Mary Whittington MD PCP Jessica Valera Unavailable Maggie Puente Unavailable Unavailable Mary Telles APRN Unavailable Bam Ritter MD Unavailable Radha Bo LPN Unavailable Unavailable Jose Sanchez MD Unavailable Reason for Visit * Reason Comments Medication Refill Encounter Details Care Team Description Date Type Department Jessica Valera ARNP [address] [facility] [address] [place] [address] Chronic nausea; Chronic vomiting 09/09/2018 Refill [facility] [address] [place] [address] Social History Date Tobacco Use [...]
--- OUTSIDE RECORDS SUMMARY | 2018-10-27 13:01 | XMS REPORT | Encounter Summary ---
Author Author [facility] Organization [facility] Address Unknown Phone Unavailable Care Team Providers Care Principal Network Architect Name Role Phone Michael Sutton MD Unavailable Unavailable Mary Whittington MD PCP Jessica Valera Unavailable Maggie Puente Unavailable Unavailable Mary Telles INTERNATIONAL MANAGER Unavailable Bam Ritter MD Unavailable Radha Bo LPN Unavailable Unavailable Jose Sanchez MD Unavailable Reason for Visit * Auth/Cert Referred By Contact Referred To Contact Status Reason Specialty Diagnoses / Procedures Diagnoses Chronic pancreatitis, unspecified pancreatitis type (HCC) Nausea Generalized abdominal pain Chronic pancreatitis, unspecified pancreatitis type (HCC) [K86.1] Nausea [R11.0] Generalized abdominal pain [R10.84] P rocedures UT EGD TRANSORAL BIOPSY SINGLE/MULTIPLE UT EDG US EXAM SURGICAL ALTER STOM DUODENUM/JEJUNUM ESOPHAGOGASTRODUOD ENOSCOPY WITH BIOPSY - FLEXIBLE ESOPHAGOGASTRODUOD ENOSCOPY WITH ENDOSCOPIC ULTRASOUND EXAMINATION - FLEXIBLE Encounter Details Care Team Description Date Type Department Ekaterina Chairez CRNA [id number] [place], [place] [id number] 08/22/2018 Anesthesia The [facility] [address] [place] [address] Anesthesia Record Responsible Anesthesiologist Anesthesia [...] Janice Dickerson MD - 08/22/2018 8:52 AM [employer] [employer] Post-Anesthesia Evaluation Name: Janeth Rajput : 1985 [...] Perioperative Event: No Emergency Case Activation: No DRAWER * Anesthesia Preprocedure Evaluation - Nuzhat Rudolph CRNA - 08/22/2018 7:04 AM [facility]RAW[facility] Anesthesia Pre-Procedure Evaluation Name: Janeth Rajput : [...] Consent: consented Plan discussed with: anesthesiologist and CHAIR UPHOLSTERER. Comments: (Pt reports fentanyl and demerol allergy, says they cause itching and hallucinations. Reports she received benadryl for her last procedure and received fentanyl and had no adverse outcomes.) DRAWER documented in this encounter Plan of Treatment Not on filedocumented as of this encounter Visit Diagnoses Not on filedocumented in this encounter Administered Medications Action Date Dose Rate Site Medication Order MAR Action 08/22/2018 8:18 AM COKE DRAWER 120 mg lidocaine (PF) injection Given INTRA-PROCEDURE MED, Starting Sat08/22/18 at 0818, Until Sat08/22/18 at 0834, Anesthesia Intra-op 08/22/2018 8:18 AM COKE DRAWER 4 mg ondansetron (ZOFRAN) injection Given INTRA-PROCEDURE MED, Starting Sat08/22/18 at 0818, Until Sat08/22/18 at 0834, Anesthesia Intra-op 08/22/2018 8:24 AM COKE DRAWER 140 mcg/kg/min 102.9 mL/hr propofol (DIPRIVAN) infusion Dose/Rate 50 mL, Intravenous, INTRA-PROCEDURE Change MED(CONT), Starting Sat08/22/18 at 0819, Until Sat08/22/18 at 08, Anesthesia Intra-op 130 mcg/kg/min 95.6 mL/hr Dose/Rate Change 08/22/2018 8:22 AM COKE DRAWER 120 mcg/kg/min 88.2 mL/hr Given - New Bag 08/22/2018 8:19 AM COKE DRAWER 08/22/2018 8:26 AM COKE DRAWER 10 mg propofol (DIPRIVAN) injection Given INTRA-PROCEDURE MED, Starting Sat08/22/18 at 0819, Until Sat08/22/18 at 0834, Anesthesia Intra-op 20 mg Given 08/22/2018 8:25 AM COKE DRAWER 20 mg Given 08/22/2018 8:23 AM COKE DRAWER documented in this encounter
--- OUTSIDE RECORDS SUMMARY | 2018-10-27 13:01 | XMS REPORT | Encounter Summary ---
Author Author [facility] Organization [facility] Address Unknown Phone Unavailable Care Team Providers Care Household Appliance Repairer Name Role Phone Michael Sutton MD Unavailable Unavailable Mary Whittington MD PCP Jessica Valera Unavailable Maggie Puente Unavailable Unavailable Mary Telles APRN Unavailable Bam Ritter MD Unavailable Radha Bo LPN Unavailable Unavailable Jose Sanchez MD Unavailable Encounter Details Care Team Description Date Type Department Melina Vargas Diarrhea, unspecified type 08/29/2018 Orders Only [facility] [address] [place] [address] Social History Date Tobacco Use [...]
--- OUTSIDE RECORDS SUMMARY | 2018-10-27 13:01 | XMS REPORT | Encounter Summary ---
Author Author [facility] Organization [facility] Address Unknown Phone Unavailable Care Team Providers Care Recruiting Consultant Name Role Phone Michael Sutton MD Unavailable Unavailable Mary Whittington MD PCP Jessica Valera Unavailable Maggie Puente Unavailable Unavailable Mary Telles APRN Unavailable Bam Ritter MD Unavailable Radha Bo LPN Unavailable Unavailable Jose Sanchez MD Unavailable Reason for Visit * Reason Comments Referral Encounter Details Care Team Description Date Type Department Abel Poe MD [address] [place] [address] [phone] Referral 09/25/2018 Telephone The [facility] [address] [address] Social History Date Tobacco Use Types Packs/Day [...] name and will let her physician in [place] know. documented in this encounter Plan of Treatment Not on filedocumented as of this encounter Visit Diagnoses Not on filedocumented in this encounter
--- OUTSIDE RECORDS SUMMARY | 2018-10-27 13:01 | XMS REPORT | Clinical Summary ---
Author Author [facility] Organization [facility] Address Unknown Phone Unavailable Care Team Providers Care Support Analyst Name Role Phone Michael Sutton MD [...] in the Health Information Management department at [phone] for further assistance in locating additional records.[facility] Allergies Comments Active Allergy Reactions [...] Overview: Added automatically from request for surgery [id number] Intractable vomiting with nausea 01/14/2018 Overview: Added automatically from request for surgery [id number] Left renal mass 04/10/2017 Renal mass 03/21/2017 Overview: Added automatically from request for surgery [id number] 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 06/24/2013 Overview: S/P HOLLAND, BSO 11/27 Depression 06/24/2013 S/P cholecystectomy 06/24/2013 Overview: 2007 S/P appendectomy 06/24/2013 Overview: November 2012 Pancreatitis 10/23/2011 Encounters Care Team Description Date Type Specialty Jessica Valera ARNP 10/14/2018 Telephone Gastroenterology Abel Poe MD Referral 09/25/2018 Telephone Oncology Jessica Vaelra ARNP Chronic nausea; Chronic vomiting 09/09/2018 Refill [...] Taken Vital Sign Reading 08/22/2018 8:50 AM [employer] Blood Pressure 115/86 08/22/2018 8:54 AM [employer] Pulse 89 08/22/2018 8:30 AM [employer] Temperature 36.8 C (98.2 F) 05/19/2018 1:06 PM [employer] Respiratory Rate 18 08/22/2018 8:53 AM [employer] Oxygen Saturation 96% - Inhaled Oxygen - Concentration 08/22/2018 7:00 AM [employer] Weight 122.5 kg (270 lb) 08/22/2018 7:00 AM [employer] Height 157.5 cm (5' 2") 08/22/2018 7:00 AM [employer] Body Mass Index 49.38 Plan of Treatment Health Maintenance Due Date Last Done Comments PHYSICAL (COMPREHENSIVE) 1991 EXAM HIV SCREENING 1999 DTAP/TDAP VACCINES (1 - 2002 Tdap) CERVICAL CANCER SCREENING 2014 INFLUENZA VACCINE 03/17/2019 06/03/2018 Procedures Comments Procedure Name Priority Date/Time Associated Diagnosis C DIFFICILE BY PCR Routine 08/26/2018 Diarrhea, unspecified type ESOPHAGOGASTRODUODENOSCOP 08/22/2018 Chronic pancreatitis, Y WITH ENDOSCOPIC 8:00 AM [employer] unspecified pancreatitis ULTRASOUND EXAMINATION - type (HCC) [...] () ENDOSCOPIC ULTRASOUND 08/22/2018 REPORT 7:47 AM [facility] from Last 3 Months Results * C DIFFICILE BY PCR (08/26/2018) Narrative Performed At Performing Organization Address City/State/Zipcode Phone Number OTHER OUTSIDE LAB * ENDOSCOPIC ULTRASOUND REPORT (08/22/2018 7:47 AM [facility]) Provation Patient Name: Regulo WILKS OTHER Report Procedure Date: 08/22/2018 7:47 RESULTS AM CSN: [id number] Date of : 1985 Gender: Female Attending Physician: Hal Sparks MD Procedure: Upper EUS Indications: Epigastric abdominal pain, Family h/o chronic pancreatitis, pancreas divisum Providers: Hal Sparks MD (Doctor), Lorenza Powers RN (Nurse), Ana Fuentes (Final Finisher) Referring Physician: Abel Poe, Randy Nunez MD [...] 55 seconds Procedure Code(s): --- Professional --- 70625, Esophagogastroduodenoscopy, flexible, transoral; with endoscopic ultrasound examination limited to the esophagus, stomach or duodenum, and adjacent structures CPT copyright 2017 [employer]. All rights reserved. The codes documented in this report are preliminary and upon belt fixer review may be revised to meet current [...] Present B AETNA MEDICAID AETNA xxxxxxxxxxx 2018-P [facility] Advance Directives Patient has advance care planning documents, and code status on file. For more information, please contact: [facility] [address] [place] [address] Date Inactivated Comments Code Status Date Activated 04/11/2017 4:57 PM Full Code 04/10/2017 5:31 PM Provider has discussed Code Status No, discussion not w/Patient or Family? necessary based on Dx
--- OUTSIDE RECORDS SUMMARY | 2018-10-27 13:01 | XMS REPORT | Encounter Summary ---
Author Author [facility] Organization [facility] Address Unknown Phone Unavailable Care Team Providers Care Education Faculty Member Name Role Phone Michael Sutton MD Unavailable Unavailable Mary Whittington MD PCP Jessica Valera Unavailable Maggie Puente Unavailable Unavailable Mary Telles APRN Unavailable Bam Ritter MD Unavailable Radha Bo LPN Unavailable Unavailable Jose Sanchez MD Unavailable Encounter Details Care Team Description Date Type Department Jessica Valera ARNP [address] [facility] [address] [place] [address] 10/14/2018 Telephone [facility] [address] [place] [address] Social History Date Tobacco Use [...] is currently admitted to the hospital at [facility] in [place], [place]. States "they saw signs of a [...]
--- OUTSIDE RECORDS SUMMARY | 2018-10-27 13:02 | XMS REPORT | Encounter Summary ---
Author Author [facility] Organization [facility] Address Unknown Phone Unavailable Care Team Providers Care Customer Support Associate Name Role Phone Michael Sutton MD Unavailable Unavailable Mary Whittington MD PCP Jessica Valera Unavailable Maggie Puente Unavailable Unavailable Mary Telles COMMERCIAL DRONE SOFTWARE DEVELOPER Unavailable Bam Ritter MD Unavailable Radha Bo LPN Unavailable Unavailable Jose Sanchez MD Unavailable Reason for Visit * Auth/Cert Referred By Contact Referred To Contact Status Reason Specialty Diagnoses / Procedures Diagnoses Chronic pancreatitis, unspecified pancreatitis type (HCC) Nausea Generalized abdominal pain Chronic pancreatitis, unspecified pancreatitis type (HCC) [K86.1] Nausea [R11.0] Generalized abdominal pain [R10.84] P rocedures HI EGD TRANSORAL BIOPSY SINGLE/MULTIPLE HI EDG US EXAM SURGICAL ALTER STOM DUODENUM/JEJUNUM ESOPHAGOGASTRODUOD ENOSCOPY WITH BIOPSY - FLEXIBLE ESOPHAGOGASTRODUOD ENOSCOPY WITH ENDOSCOPIC ULTRASOUND EXAMINATION - FLEXIBLE Encounter Details Care Team Description Date Type Department Hal Sparks MD [address] Orth[facility]Med [address] [place] [address] Chronic pancreatitis, unspecified pancreatitis type (HCC) 08/22/2018 [facility] [address] [place] [address] Social History Date Tobacco Use [...] Taken Vital Sign Reading 08/22/2018 8:50 AM [employer] Blood Pressure 115/86 08/22/2018 8:54 AM [employer] Pulse 89 08/22/2018 8:30 AM [employer] Temperature 36.8 C (98.2 F) - Respiratory Rate - 08/22/2018 8:53 AM [employer] Oxygen Saturation 96% - Inhaled Oxygen - Concentration 08/22/2018 7:00 AM [employer] Weight 122.5 kg (270 lb) 08/22/2018 7:00 AM [employer] Height 157.5 cm (5' 2") 08/22/2018 7:00 AM [employer] Body Mass Index 49.38 documented in this [...] Mary Lechuga RN - 08/22/2018 8:46 AM [employer] EGD/Upper EUS/ERCP/Antegrade Enteroscopy Post Upper Endoscopy Instructions [...] or concerns after your procedure please call [phone] M-F 8am-5:00 pm. After 5:00 pm, holidays or weekends call [phone] and ask for the GI Doctor electronics computer mechanic. [employer] documented in this encounter Medications at Time [...] Joel Cantu MD - 08/22/2018 8:12 AM [employer] Pre Procedure History and Physical/Sedation Plan Name:Janeth [...] Relevant labs reviewed Joel Cantu MD Pager [employer] documented in this encounter Plan of Treatment Not on filedocumented as of this encounter Procedures Comments Procedure Name Priority Date/Time Associated Diagnosis ESOPHAGOGASTRODUODENOSCOP 08/22/2018 Chronic pancreatitis, Y WITH ENDOSCOPIC 8:00 AM [employer] unspecified pancreatitis ULTRASOUND EXAMINATION - type (HCC) [...] () ENDOSCOPIC ULTRASOUND 08/22/2018 REPORT 7:47 AM [employer] documented in this encounter Results * ENDOSCOPIC ULTRASOUND REPORT (08/22/2018 7:47 AM [employer]) Provation Patient Name: Regulo WILKS OTHER Report Procedure Date: 08/22/2018 7:47 RESULTS AM CSN: [id number] Date of : 1985 Gender: Female Attending Physician: Hal Sparks MD Procedure: Upper EUS Indications: Epigastric abdominal pain, Family h/o chronic pancreatitis, pancreas divisum Providers: Hal Sparks MD (Doctor), Lorenza Powers RN (Nurse), Ana Fuentes (Sea Shell Gatherer) Referring Physician: Randy Viveros MD Medications: Monitored [...] 55 seconds Procedure Code(s): --- Professional --- 13567, Esophagogastroduodenoscopy, flexible, transoral; with endoscopic ultrasound examination limited to the esophagus, stomach or duodenum, and adjacent structures CPT copyright 2017 [employer]. All rights reserved. The codes documented in this report are preliminary and upon cable coverer review may be revised to meet current [...] Medication Order MAR Action 08/22/2018 7:26 AM [employer] 1,000 mL sodium chloride 0.9 % infusion Given - New 1,000 mL, Intravenous, CONTINUOUS, Bag Starting Sat08/22/18 at 0730, Until Sat08/22/18 at 1121, Pre-Op documented in this encounter
--- OUTSIDE RECORDS SUMMARY | 2018-10-27 13:02 | XMS REPORT | Encounter Summary ---
Author Author [facility] Organization [facility] Address Unknown Phone Unavailable Care Team Providers Care Scrap Metal Processing Worker Name Role Phone Michael Sutton MD Unavailable Unavailable Mary Whittington MD PCP Jessica Valera Unavailable Maggie Puente Unavailable Unavailable Mary Telles APRN Unavailable Bam Ritter MD Unavailable Radha Bo LPN Unavailable Unavailable Jose Sanchez MD Unavailable Reason for Visit * Reason Comments Medication Refill Encounter Details Care Team Description Date Type Department Randy Nunez MD [address] Orth[facility] [place] [address] [place] [address] Medication monitoring encounter 08/18/2018 Refill [facility] [address] [place] [address] Social History Date Tobacco Use [...]
--- OUTSIDE RECORDS SUMMARY | 2018-10-27 13:03 | XMS REPORT ---
Author Author Migration, Doctor Organization [facility] Address Unknown Phone Unavailable Care Team Providers Care Interior Design Principal Name Role Phone Migration, Doctor Unavailable Unavailable PROBLEMS Type Condition ICD9-CM Code YOU68-YT Code Onset Dates Condition Status SNOMED Code Problem Chronic tension-type headache, intractable G44.221 Active 546194594 Problem Right carpal tunnel syndrome G56.01 Active 449259117607459 Problem Hyperlipidemia, mixed E78.2 Active 305190681 Problem Morbid (severe) obesity due to excess calories E66.01 Active 245744930 Problem FH: polycystic ovary Z84.2 Active 544289289 Problem Hirsuties L68.0 Active 727947349 Problem Asthma J45.909 Active 273000377 Problem Chronic pancreatitis K86.1 Active 045261876 Problem Trichotillomania F63.3 Active 73543625 Problem Restless leg syndrome G25.81 Active 78783473 Problem Generalized social phobia F40.11 Active 95135444 Problem Primary osteoarthritis of right knee M17.11 Active 762448798588426 Problem Atelectasis J98.11 Active 70232788 Problem History of renal cell carcinoma Z85.528 Active 457295904 Problem Obesities, morbid E66.01 Active 967415238 Problem Polydipsia R63.1 Active 39165795 Problem Nodule of left lung R91.1 Active 963664733 Problem Chronic post-traumatic stress disorder (PTSD) F43.12 Active 090782678 Problem Moderate episode of recurrent major depressive disorder F33.1 Active 147720766 Problem Chronic fatigue R53.82 Active 43143749 Problem Intestinal malabsorption, unspecified K90.9 Active 05993738 ALLERGIES No Information ENCOUNTERS Encounter Location Date Diagnosis [facility] [id number], [place] [address] October, [facility] [address] [facility] [id number], [place] [address] October, [facility] [id number], [place] [address] October, [facility] [address] [facility] [id number], [place] [address] October, [facility] [address] [place] [address] Sep, [facility] [address] [facility] [id number], [place] [address] Sep, [facility] [address] [facility] [id number], [place] [address] Sep, [facility] [address] [facility] [id number], [place] [address] Sep, [facility] [address], [place] [address] Sep, Lower extremity edema R60.0 [facility] [address], [place] [address] Sep, [facility] [address] [facility] [id number], [place] [address] Sep, Lower extremity edema R60.0 and Morbid obesity E66.01 [facility] [address], [place] [address] Sep, [facility] [address], [place] [address] 6[address] Sep, [facility] [address], [place] [address] Aug, [facility] [address] [facility] [id number], [place] [address] Aug, Obesities, morbid E66.01 and Morbid obesity E66.01 [facility] [address] [facility] [id number], [place] [address] Aug, [facility] [address] [address] Jul, [facility] [address], [place] [address] Jul, [facility] [id number] [place] [address] 13431- 5662 Jul, [facility] [address], [place] [address] Jul, Numbness of right hand R20.0 [facility] [id number] [place] [address] 38518- 7030 Jul, [facility] [id number] [place] [address] 97143- 5242 Jul, Numbness of right hand R20.0 [facility] [address] [place] [address] 50934- 9990 Jul, [facility] [id number] [place] [address] 52479- 5943 Jul, [facility] [address] [place] [address] 27584- 9775 Jul, Right-sided thoracic back pain M54.6 [facility] [address] [place] [address] 24578- 8363 Jul, [facility] [id number] [place] [address] 77976- 6598 Jul, [facility] [address] [place] [address] 62774- 5454 Jul, [facility] [id number] [place] [address] 20694- 0503 Jul, [facility] [id number] [place] [address] 01684- 0866 Jun, [facility] [address], [place] [address] Jun, Acute pain of right shoulder M25.511 ; Numbness of right hand R20.0 and Trapezius muscle spasm M62.838 [facility] [id number], [place] [address] Jun, [facility] [id number] [place] [address] 12831- 4690 Jun, [facility] [id number] [place] [address] 24123- 6432 Jun, Cough R05 ; BMI 50.0-59.9, adult Z68.43 and Morbid obesity E66.01 [facility] [id number] [place] [address] 10346- 3922 Jun, [facility] [id number] [place] [address] 00747- 7218 Jun, [facility] [id number] [place] [address] 85223 -4047 Jun, BMI 45.0-49.9, adult Z68.42 and Acute non-recurrent maxillary sinusitis J01.00 [facility] [id number] [place] [address] 95958 -4433 Jun, Acute sinusitis J01.90 ; Dysuria R30.0 and BMI 45.0-49.9, adult Z68.42 [facility] [id number] [place] [address] 48672- 5570 Jun, [facility] [id number] [place] [address] 96048- 6426 Jun, [facility] [id number] [place] [address] 05028- 6423 May, [facility] [id number] [place] [address] 15903- 2805 May, [facility] [id number] [place] [address] 80020- 7097 May, [facility] [id number] [place] [address] 60229- 2131 May, [address] [id number] [place] [address] 63105- 4586 May, [place] [id number] [place] [address] 90609- 1797 Apr, Generalized social phobia F40.11 ; Trichotillomania F63.3 ; Chronic post-traumatic stress disorder (PTSD) F43.12 and BMI 45.0-49.9, adult Z68.42 [place] [id number] [place] [address] 71817- 1416 Apr, [address] [place] [address] [address]- 0[address] Apr, Chronic tension-type headache, intractable G44.221 [place] [address] 91819- 7844 Apr, [facility] [id number] [place] [address] 80005 -5170 Mar, [facility] [id number] [place] [address] 59821 -0108 Mar, BMI 45.0-49.9, adult Z68.42 and Pimples R23.8 [place] [id number] [place] [address] 61097- 3268 Mar, [place] [id number] [place] [address] 33008- 5068 Mar, [place] [id number] [place] [address] 30176- 7726 Mar, Decreased urination R34 ; Chronic fatigue R53.82 ; Peripheral edema R60.9 ; Diarrhea, unspecified type R19.7 ; Non-intractable vomiting with nausea, unspecified vomiting type R11.2 ; BMI 45.0-49.9, adult Z68.42 and Chronic post-traumatic stress disorder (PTSD) F43.12 [place] [address] [place] [address]- 8049 Mar, Intestinal malabsorption, unspecified K90.9 ; Diarrhea, unspecified R19.7 ; Urinary urgency R39.15 ; Rectal bleeding K62.5 and Decreased urine output R34 [facility] [id number] [place] [address] 89173- 7712 Mar, Decreased urine output R34 [facility] [address] 44450- 0092 Mar, Rectal bleeding K62.5 [facility] [id number] [place] [address] 12302- 9711 Mar, Rectal bleeding K62.5 [place] [id number] [place] [address] 34779- 3985 Mar, Urinary urgency R39.15 [place] [id number] [place] [address] 07534- 6652 Mar, Urinary urgency R39.15 [place] [id number] [place] [address] 90104- 0110 Mar, Primary osteoarthritis of right knee M17.11 and BMI 45.0- 49.9, adult Z68.42 [place] [id number] [place] [address] 59387- 7224 Mar, [place] [id number] [place] [address] 46851- 8919 Feb, Left upper arm pain M79.622 [place] [id number] [place] [address] 69353- 1468 Feb, [address] [place] [address] 78781- 1770 Jan, Acute pain of right knee M25.561 ; Right upper quadrant abdominal pain R10.11 and BMI 45.0-49.9, adult Z68.42 [address] [place] [id number] [place] [address] 08214- 3183 Jan, [facility] [address], [place] [address]- 7150 Jan, [facility] [id number] [place] [address] 67580- 4717 Dec, [facility] [id number] [place] [address] 70638- 8155 Dec, Intestinal malabsorption, unspecified K90.9 and Diarrhea, unspecified R19.7 [facility] [id number] [place] [address] 87512- 6942 Dec, [facility] [id number] [place] [address] 94219- 9886 Dec, Strep throat J02.0 ; Intestinal malabsorption, unspecified K90.9 ; Diarrhea, unspecified R19.7 ; Postoperative seroma involving digestive system after non-digestive system procedure K91.873 ; Hyperlipidemia, mixed E78.2 and BMI 45.0-49.9, adult Z68.42 [facility] [id number] [place] [address] 96435- 5320 Dec, [facility] [id number] [place] [address] 11141- 7709 Dec, Nausea R11.0 [facility] [id number] [place] [address] 58496- 2580 Dec, [facility] [id number] [place] [address] 07089 -3573 Dec, Sore throat J02.9 ; Strep throat J02.0 and BMI 45.0-49.9, adult Z68.42 [facility] [id number] [place] [address] 88899- 5607 Dec, [facility] [id number] [place] [address] 56419- 4825 Dec, [facility] [id number] [place] [address] 54797- 7179 Dec, [facility] [address], [place] [address]- 6604 Dec, [facility] [id number] [place] [address] 45930- 5819 Dec, [facility] [id number] [place] [address] 36028- 6639 Dec, [facility] [id number] [place] [address] 76790- 2364 Dec, [facility] [id number] [place] [address] 63671- 5828 Dec, [facility] [id number] [place] [address] 09008- 2140 Dec, Clostridium difficile colitis A04.72 ; Intractable vomiting with nausea, unspecified vomiting type R11.2 and BMI 45.0-49.9, adult Z68.42 [facility] [id number], [place] [address]- 7827 Dec, [facility] [id number] [place] [address] 51640- 7765 Nov, [facility] [id number] [place] [address] 64450- 2453 Nov, [facility] [id number] [place] [address] 67611- 0317 Nov, [facility] [address], [place] [address]- 6180 Nov, [facility] [id number] [place] [address] 16629 -4217 Nov, [facility] [id number] [place] [address] 93468- 8102 Nov, Hyperlipidemia, mixed E78.2 [facility] [address], [place] [address] Nov, Acute suppurative otitis media of right ear without spontaneous rupture of tympanic membrane, recurrence not specified H66.001 and BMI 45.0-49.9, adult Z68.42 [address] [id number] [place] [address] 64980- 1137 Nov, Hyperlipidemia, mixed E78.2 [id number] [place] [address] 30866- 8299 Nov, [address] [place] [id number] [place] [address] 67631- 7242 Nov, [id number] [place] [address] 99846- 0872 Nov, Nodule of left lung R91.1 [id number] [place] [address] 43629- 6596 Nov, Medicare annual wellness visit, initial Z00.00 [...] and Encounter for immunization Z23 [id number] [place] [address] 52675- 6055 October, [id number] [place] [address] 56153- 6536 October, Nodule of left lung R91.1 [id number] [place] [address] 15702- 3921 October, Nodule of left lung R91.1 [id number] [place] [address] 14018- 0502 October, Recurrent major depressive disorder, in partial remission F33.41 ; Restless leg syndrome G25.81 ; Generalized social phobia F40.11 ; Chronic post-traumatic stress disorder (PTSD) F43.12 ; BMI 45.0-49.9, adult Z68.42 and Trichotillomania F63.3 [facility] [id number] [place] [address] 92898- 5548 October, [address] [place] 60822- 2089 Sep, Chronic fatigue R53.82 and BMI 45.0-49.9, adult Z68.42 [address] 05996- 0244 Aug, [address] [place] 57919- 0901 Jul, Restless leg syndrome G25.81 and B12 deficiency E53.8 [address] 35674- 6390 Jul, [address] [place] [address] 12208- 9393 Jul, [address] [place] [address] 30066- 4555 Jun, [address] [place] 34780- 0388 Jun, Fatigue, unspecified type R53.83 ; History of renal cell carcinoma Z85.528 ; Chronic pancreatitis K86.1 ; Restless leg syndrome G25.81 ; Dark urine R82.99 and BMI 45.0-49.9, adult Z68.42 [address] 83060- 8322 Jun, [address] [place] 70000- 8638 Jun, [address] [place] [address] 57415- 8909 Jun, [address] [place], [place] [address]- 5998 Jun, [address] [place] [place] [address] 32538- 1960 May, Chronic post-traumatic stress disorder (PTSD) F43.12 ; Moderate episode of recurrent major depressive disorder F33.1 ; Trichotillomania F63.3 and Generalized social phobia F40.11 [address] [place] [place] [address] 41591- 1882 May, [address] [place] [place] [address] 06645- 9294 May, Chronic post-traumatic stress disorder (PTSD) F43.12 ; Moderate episode of recurrent major depressive disorder F33.1 ; Trichotillomania F63.3 and Generalized social phobia F40.11 [address] [place] [address] [place] [address] 65229- 8256 May, Hyperlipidemia, mixed E78.2 ; Morbid (severe) obesity due to excess calories E66.01 ; Chronic post-traumatic stress disorder (PTSD) F43.12 ; Moderate episode of recurrent major depressive disorder F33.1 ; Trichotillomania F63.3 and Generalized social phobia F40.11 [address] [place], [place] [address]- 0748 Apr, [address] [address] [place] [address] 19893- 7587 Apr, Hyperlipidemia, mixed E78.2 ; Morbid (severe) obesity due to excess calories E66.01 ; Chronic post-traumatic stress disorder (PTSD) F43.12 ; Moderate episode of recurrent major depressive disorder F33.1 ; Trichotillomania F63.3 and Generalized social phobia F40.11 [address] [place] [id number], [place] [address]- 9899 Apr, Trichotillomania F63.3 ; Generalized social phobia F40.11 ; Chronic post-traumatic stress disorder (PTSD) F43.12 and Moderate episode of recurrent major depressive disorder F33.1 [facility] [id number] [place] [address] 22459- 3989 Apr, [facility] [id number] [place] [address] 35597- 6332 Apr, [facility] [address] 25284- 8819 Mar, Moderate episode of recurrent major depressive disorder F33.1 ; Trichotillomania F63.3 ; Chronic post-traumatic stress disorder (PTSD) F43.12 ; Generalized social phobia F40.11 and Restless leg syndrome G25.81 [place] [id number] [place] [address] 79185- 8671 Mar, [place] [address] 51511- 0883 Mar, [place] [address] 32791- 9114 Feb, Left kidney mass N28.[address] 57960- 7147 Jan, [place] [id number] [place] [address] 05920- 0126 Dec, Polydipsia R63.1 ; Chronic pancreatitis K86.1 and Fatigue, unspecified type R53.83 [facility] [id number] [place] [address] 14468- 7188 Nov, [facility] [id number] [place] [address] 30609- 1311 Nov, [place] [id number] [place] [address] 55620- 7342 Nov, Headache around the eyes R51 [facility] [id number] [place] [address] 46993- 0732 05 Nov, 2016 [facility] [address] [place] [address] 19503- 7534 October, STD exposure Z20.2 [facility] [id number] [place] [address] 15022- 3180 October, STD exposure Z20.2 [facility] [id number] [place] [address] 13797- 1252 October, Chronic post-traumatic stress disorder (PTSD) F43.12 ; Generalized social phobia F40.11 ; Trichotillomania F63.3 and Restless leg syndrome G25.81 [place] [id number] [place] [address] 62732- 4541 October, [facility] [id number] [place] [address] 82674- 4501 Sep, [facility] [id number] [place] [address] 83878- 4630 Aug, [facility] [id number] [place] [address] 55467- 2532 Aug, [facility] [id number] [place] [address] 08484- 6858 Aug, Neck mass R22.1 [place] [id number] [place] [address] 90114- 7916 Aug, Atelectasis J98.11 [facility] [id number] [place] [address] 39966- 9523 28 Jul, 2016 Hyperlipidemia, mixed E78.2 ; Atypical pneumonia J18.9 and Neck mass R22.1 [facility] [id number] [place] [address] 33084- 0347 15 Jul, 2016 Hemoptysis R04.2 [facility] [id number] [place] [address] 39960- 1348 08 Jul, 2016 Acute non-recurrent pansinusitis J01.40 ; Hemoptysis R04.2 ; Polydipsia R63.1 and Malaise R53.81 [facility] [place] [address], [place] [address] -[address] May, Other viral agents as the cause of diseases classified elsewhere B97.89 and Acute upper respiratory infection, unspecified J06.9 [facility] [place] [id number] [address]40 Mar, Nausea R11.0 [facility] [place] [id number] [place] [address] 68059 -4765 Dec, Hives L50.9 [place] [id number] [place] [address] 71009- 1487 Dec, [facility] [place] [id number] [place] [address] 07124 -3673 Dec, Cutaneous abscess of limb, unspecified L02.419 ; Cellulitis of unspecified part of limb L03.119 ; Encounter for incision and drainage procedure Z01.89 and Encounter for recheck of abscess following incision and drainage Z09 [facility] [address] [address] -[address]55 Dec, Abscess of leg, right L02.415 [place] [address], [place] [address]- 2404 Dec, Cellulitis of unspecified part of limb L03.119 and Cutaneous abscess of limb, unspecified L02.419 [place] [address], [place] [address]- 6557 Dec, [place] [id number], [place] [address]- 0551 Dec, [facility] [place] [id number] [place] [address] Aug, [place] [id number] [address] Aug, [facility] [id number] [place] [address] 04 Jul, 2015 Pain in unspecified wrist M25.539 and Back pain, thoracic M54.6 [facility] [id number] [place] [address] Jun, Strain of right wrist, initial encounter S66.911A [place] [address] [address] Jun, Chronic pancreatitis, unspecified pancreatitis type K86.1 ; Hirsuties L68.0 ; Morbid (severe) obesity due to excess calories E66.01 ; Chronic pancreatitis K86.1 and Asthma J45.909 [place] [address] [address] May, [place] [address] [address] May, Hyperlipidemia, mixed E78.2 and Muscle spasm of back M62.830 [place] [address] [address] Apr, [place] [address] [address] Apr, Torticollis M43.6 [place] [address] [address] Apr, Right-sided thoracic back pain M54.6 [facility] [address] [address] Mar, Rash R21 [place] [address] [address] Mar, [facility] [address] [address] Jan, [place] [address] [address] Dec, [place] [id number], [place] [address] Dec, Urinary frequency 788.41 and Nocturia more than twice per night 788.43 [facility] [id number] [place] [address]- [address] Nov, [facility] [id number] [place] [address]- [address] Nov, [facility] [id number] [place] [address]- [address] Nov, Abdominal pain 789.00 [facility] [id number] [place] [address] October, TDAP DX V06.1 [facility] [id number] [place] [address]- [address] October, [facility] [id number] [place] [address] October, Disturbance of skin sensation 782.0 ; Wrist pain, right 719.43 ; Hyperlipidemia 272.4 and Skin lesion of face 709.9 [facility] [id number] [place] [address]- [address] Sep, [facility] [id number] [place] [address] 8[address]- [address] Sep, [facility] [id number] [place] [address]- [address]678 Aug, [facility] [id number] [place] [address]- [address] Aug, [facility] [id number] [place] [address]- [address] Aug, [facility] [id number], [place] [address] Aug, [facility] [id number] [place] [address] [id number]- 8861 Aug, [facility] [facility] [address] [id number] [place] [address] 16 Aug, 2014 [facility] [place] [facility] [address] [id number] [place] [address] 44[address] 14 Aug, 2014 [facility] [place] [facility] [address] [id number] [place] [address]13 14 Aug, 2014 [facility] [place] [facility] [address] [id number] [place] [address] 2832 11 Aug, 2014 [facility] [place] [facility] [address] [id number] [place] [address] 6666 Aug, [facility] [place] [facility] [address] [id number] [place] [address] 0197 04 Aug, 2014 [facility] [place] [facility] [address] [id number] [place] [address] 6284 04 Aug, 2014 [facility] [place] [facility] [address] [id number] [place] [address] 6432 Aug, [facility] [place] [facility] [address] [id number] [place] [address] 6693 Aug, [facility] [place] [facility] [address] [id number] [place] [address] 6889 Jul, 2014 [facility] [place] [facility] [address] [id number] [place] [address] 4326 Jul, 2014 [facility] [place] [facility] [address] [id number], [place] [address] Jul, 2014 [facility] [place] [facility] [address] [id number] [place] [address]- 5536 Jul, 2014 [facility] [place] [facility] [address] [id number] [place] [address]- 4207 Jul, 2014 [facility] [place] [facility] [address] [id number] [place] [address] 1653 Jul, 2014 [facility] [place] [facility] [address] [id number] [place] [address] 6188 Jun, [facility] [address] [id number] [place] [address] 4450 Jun, [facility] [address] [id number] [place] [address] 0054 Jun, [facility] [address] [id number] [place] [address] Jun, [facility] [address] [id number] [place] [address]- 3725 Jun, [facility] [address] [id number] [place] [address]- 9499 Jun, [facility] [address] [id number] [place] [address]- 4838 Jun, [facility] [address] [id number] [place] [address]- 6529 Jun, [facility] [address] [id number] [place] [address]- 5696 May, [facility] [address] [id number] [place] [address]- 0689 19 May, 2014 [facility] [address] [id number] [place] [address] 6208 18 May, 2014 [facility] [place] [facility] [address] [id number] [place] [address]- 9325 18 May, 2014 [facility] [address] [id number] [place] [address]- 1204 15 May, 2014 [facility] [place] [facility] [address] [id number] [place] [address]- 3530 15 May, 2014 [facility] [place] [facility] [address] [id number] [place] [address] 3878 11 May, 2014 [facility] [address] [id number] [place] [address]- 7014 May, [facility] [place] [facility] [address] [id number] [place] [address]- 4607 May, [facility] [place] [facility] [address] [id number] [place] [address]- 4428 May, [facility] [place] [facility] [address] [id number] [place] [address]- 5327 May, [facility] [place] [facility] [address] [id number] [place] [address]- 6297 May, [facility] [place] [facility] [address] [id number] [place] [address]- 0372 Apr, [facility] [place] [facility] [address] [id number] [place] [address]- 3546 Apr, [facility] [place] [facility] [address] [id number] [place] [address]- 1041 Apr, [facility] [place] [facility] [address] [id number] [place] [address]- 3228 Apr, [facility] [place] [facility] [address] [id number] [place] [address]- 7290 Apr, [facility] [place] [facility] [address] [id number] [place] [address]- 2783 Apr, [facility] [place] [facility] [address] [id number] [place] [address]- 3518 Apr, [facility] [place] [facility] [address] [id number], [place] [address]- [address] Apr, [facility] [place] [facility] [address] [id number] [place] [address]- 5466 Apr, [facility] [place] [facility] [address] [id number] [place] [address]- 4973 Apr, [facility] [place] [facility] [address] [id number], [place] [address]- 1762 Apr, [facility] [place] [facility] [address] [id number], [place] [address]- 2645 Apr, [facility] [place] [facility] [address] [id number] [place] [address]- 9670 Mar, [facility] [place] [facility] [address] [id number] [place] [address]- 2452 Mar, [facility] [place] [facility] [address] [id number] [place] [address]- 1630 Mar, [facility] [place] [facility] [address] [id number] [place] [address]- 2493 Mar, [facility] [place] [facility] [address] [id number] [place] [address]- 5566 Feb, [facility] [place] [facility] [address] [id number] [place] [address]- 6512 Feb, [facility] [place] [facility] [address] [id number] [place] [address]- 9809 Feb, [facility] [place] [facility] [address] [id number] [place] [address]- 0873 05 Feb, 2014 [facility] [place] [facility] [address] [id number] [place] [address]- 6466 05 Feb, 2014 [facility] [place] [facility] [address] [id number] [place] [address]- 0664 Feb, [facility] [place] [facility] [address] [id number] [place] [address]- 0056 Jan, [facility] [place] [facility] [address] [id number] [place] [address]- 4160 Jan, [facility] [place] [facility] [address] [id number] [place] [address]- 7819 Jan, [facility] [place] [facility] [address] [id number] [place] [address]- 0232 Jan, [facility] [place] [facility] [address] [id number] [place] [address]- 3580 Jan, [facility] [place] [facility] [address] [id number] [place] [address]- 7914 Jan, [facility] [place] [facility] [address] [id number] [place] [address]- 4579 Jan, [facility] [place] [facility] [address] [id number] [place] [address]- 4901 Jan, [facility] [place] [facility] [address] [id number] [place] [address]- 6599 Jan, [facility] [place] [facility] [address] [id number] [place] [address]- 8270 Jan, [facility] [place] [facility] [address] [id number] [place] [address]- 4719 Jan, [facility] [place] [facility] [address] [id number] [place] [address]- 1911 Jan, [facility] [place] [facility] [address] [id number] [place] [address]- 6575 Jan, [facility] [place] [facility] [address] [id number] [place] [address]- 3682 Jan, [facility] [place] [facility] [address] [id number] [place] [address]- 1635 Dec, [facility] [place] [facility] [address] [id number] [place] [address]- 8468 Dec, [facility] [place] [facility] [address] [id number] [place] [address]- 0215 Dec, [facility] [place] [facility] [address] [id number] [place] [address]- 0690 Dec, [facility] [place] [facility] [address] [id number] [place] [address]- 0391 Nov, [facility] [place] [facility] [address] [id number] [place] [address]- 7681 Nov, [facility] [place] [facility] [address] [id number] [place] [address]- 1978 Nov, [facility] [place] [facility] [address] [id number] [place] [address]- 6366 Nov, [facility] [place] [facility] [address] [id number] [place] [address]- 1181 Nov, [facility] [place] [facility] [address] [id number] [place] [address]- 9719 October, [facility] [place] [facility] [address] [id number] [place] [address]- 3426 October, [facility] [place] [facility] [address] [id number] [place] [address]- 8236 October, [facility] [place] [facility] [address] [id number] [place] [address]- 1491 October, [facility] [place] [facility] [address] [id number] [place] [address]- 9798 October, [facility] [place] [facility] [address] [id number] [place] [address]- 8554 October, [facility] [place] [facility] [address] [id number] [place] [address]- 1673 October, [facility] [place] [facility] [address] [id number] [place] [address]- 7000 October, [facility] [place] [facility] [address] [id number] [place] [address]- 2031 October, [facility] [place] [facility] [address] [id number] [place] [address]- 4770 October, [facility] [place] [facility] [address] [id number] [place] [address]- 7994 October, [facility] [place] [facility] [address] [id number] [place] [address]- 9348 October, [facility] [place] [facility] [address] [id number] [place] [address]- 8466 October, [facility] [place] [facility] [address] [id number] [place] [address]- 4315 October, [facility] [place] [facility] [address] [id number] [place] [address]- 9510 Sep, [facility] [place] [facility] [address] [id number] [place] [address]- 6093 Sep, [facility] [place] [facility] [address] [id number] [place] [address]- 1781 Sep, [facility] [place] [facility] [address] [id number] [place] [address]- 0798 Sep, [facility] [place] [facility] [address] [id number] [place] [address]- 1034 Sep, [facility] [place] [facility] [address] [id number] [place] [address]- 0944 Sep, [facility] [place] [facility] [address] [id number] [place] [address]- 8606 Sep, [facility] [place] [facility] [address] [id number] [place] [address]- 6338 Sep, [facility] [place] [facility] [address] [id number] [place] [address]- 0979 Sep, [facility] [place] [facility] [address] [id number] [place] [address]- 6883 Sep, [facility] [place] [facility] [address] [id number] [place] [address]- 5992 Sep, [facility] [place] [facility] [address] [id number] [place] [address]- 7785 Sep, [facility] [place] [facility] [address] [id number] [place] [address]- 3822 Sep, [facility] [place] [facility] [address] [id number] [place] [address]- 5050 Sep, [facility] [place] [facility] [address] [id number] [place] [address]- 6718 Sep, [facility] [place] [facility] [address] [id number] [place] [address]- 3218 Aug, [facility] [place] [facility] [address] [id number] [place] [address]- 8835 Aug, [facility] [place] [facility] [address] [id number] [place] [address]- 1698 Aug, [facility] [place] [facility] [address] [id number] [place] [address]- 6501 Aug, [facility] [place] [facility] [address] [id number] [place] [address]- 0859 Jul, [facility] [place] [facility] [address] [id number] [place] [address]- 4298 Jul, [facility] [place] [facility] [address] [id number] [place] [address]- 6830 Jul, [facility] [place] [facility] [address] [id number] [place] [address]- 9514 Jul, [facility] [place] [facility] [address] [id number] [place] [address]- 4624 Jun, [facility] [place] [facility] [address] [id number] [place] [address]- 2933 Jun, [facility] [place] [facility] [address] [id number] [place] [address]- 1402 Jun, [facility] [place] [facility] [address] [id number] [place] [address]- 5599 Jun, [facility] [place] [facility] [address] [id number] [place] [address]- 8734 Jun, [facility] [place] [facility] [address] [id number] [place] [address]- 6478 Jun, [facility] [place] [facility] [address] [id number] [place] [address]- 8716 Jun, [facility] [place] [facility] [address] [id number], [place] [address]- 4019 08 Jun, 2013 [facility] [address] [id number] [place] [address]859 20 May, 2013 [facility] [address] [id number] [place]89 20 May, 2013 [facility] [address] [id number] [place] [address]- 0264 18 May, 2013 [facility] [address] [id number] [place] [address]- 1958 18 May, 2013 [facility] [address] [id number] [place] [address]- 4150 17 May, 2013 [facility] [address] [id number] [place] [id number] 17 May, 2013 [facility] [address] [id number] [place] [address]- 4301 17 May, 2013 [facility] [address] [id number] [place] [address]- 6016 17 May, 2013 [facility] [address] [id number] [place] [address]- 2275 16 May, 2013 [facility] [address] [id number] [place] [address]- 9615 16 May, 2013 [facility] [address] [id number] [place] [address]- 6827 14 May, 2013 [facility] [address] [id number] [place] [address]- 6070 14 May, 2013 [facility] [address] [id number] [place] [address]- 0228 13 May, 2013 [facility] [place] [facility] [address] [id number] [place] [address]- 6917 13 May, 2013 [facility] [address] [id number] [place] [address]- 1878 12 May, 2013 [facility] [place] [facility] [address] [id number] [place] [address]- 2670 May, [facility] [address] [id number] [place] [address]- 7220 May, [facility] [address] [id number] [place] [address]- 5276 May, [facility] [address] [id number] [place] [address]- 7877 Apr, [facility] [address] [id number] [place] [address]- 7334 Apr, [facility] [address] [id number] [place] [address]- 6402 Apr, [facility] [address] [id number] [place] [address]- 3425 Apr, [facility] [address] [id number] [place] [address]- 4704 Aug, [facility] [address] [id number] [place] [address]- 0759 Aug, [facility] [address] [id number] [place] [address]- 8305 Aug, [facility] [address] [id number] [place] [address]- 0722 Aug, [facility] [address] [id number] [place] [address]- 4476 Jul, [facility] [address] [id number] [place] [address]- 1112 Jun, [facility] [address] [id number] [place] [address]- 7846 Jun, [facility] [address] [id number] [place] [address]- 2546 Jun, [facility] [address] [id number] [place] [address]- 0334 Jun, [facility] [place] [facility] [address] [id number] [place] [address]- 0109 May, [facility] [place] [facility] [address] [id number] [place] [address]- 5316 May, [facility] [place] [facility] [address] [id number] [place] [address]- 4690 May, [facility] [place] [facility] [address] [id number] [place] [address]- 7927 May, [facility] [place] [facility] [address] [id number] [place] [address]- 3114 May, [facility] [place] [facility] [address] [id number] [place] [address]- 2189 May, [facility] [place] [facility] [address] [facility] [id number] [place] [address]- 0423 May, [facility] [place] [facility] [address] [id number], [place] [address]- 4788 Apr, [facility] [place] [facility] [address] [id number] [place] [address]- 0687 Apr, [facility] [place] [facility] [address] [id number], [place] [address]- 7481 Apr, [facility] [place] [facility] [address] [id number], [place] [address]- 1265 Apr, [facility] [place] [facility] [address] [id number], [place] [address]- 0097 Apr, [facility] [place] [facility] [address] [id number] [place] [address]- 6937 Apr, [facility] [place] [facility] [address] [id number], [place] [address]- 0332 Apr, [facility] [place] [facility] [address] [facility] [id number] [place] [address]- 7737 Mar, [facility] [place] [facility] [address] [id number] [place] [address]- 2117 Mar, [facility] [place] [facility] [address] [id number] [place] [address]- 6495 Mar, 2011 [facility] [place] [facility] [address] [id number] [place] [address]- 0128 Mar, [facility] [place] [facility] [address] [id number] [place] [address]- 8891 Mar, 2011 [facility] [place] [facility] [address] [id number] [place] [address]- 9864 Mar, [facility] [place] [facility] [address] [id number] [place] [address]- 3040 Mar, [facility] [place] [facility] [address] [id number] [place] [address]- 2308 Mar, [facility] [place] [facility] [address] [id number] [place] [address] 15 Mar, 2012 [facility] [place] [facility] [address] [id number] [place] [address] 15 Mar, 2012 [facility] [place] [facility] [address] [id number] [place] [address] Mar, [facility] [place] [facility] [address] [facility] [id number] [place] [address] Mar, [facility] [place] [facility] [address] [id number] [place] [address] 06 Feb, 2012 [facility] [place] [facility] [address] [id number], [place] [address] Jan, [facility] [place] [facility] [address] [id number] [place] [address] 14 Jan, 2012 [facility] [place] [facility] [address] [id number] [place] [address] Jan, [facility] [place] [facility] [address] [facility] [id number] [place] [address] Jan, [facility] [place] [facility] [address] [id number] [place] [address] Jan, [facility] [place] [facility] [address] [id number] [place] [address] Dec, [facility] [place] [facility] [address] [id number] [place] [address] Dec, [facility] [place] [facility] [address] [id number] [place] [address] Nov, [facility] [place] [facility] [address] [id number] [place] [address] Nov, [facility] [place] [facility] [address] [id number] [place] [address] Nov, [facility] [place] [facility] [address] [id number] [place] [address] October, [facility] [place] [facility] [address] [id number] [place] [address] October, [facility] [place] [facility] [address] [id number] [place] [address] October, [facility] [place] [facility] [address] [id number] [place] [address] October, [facility] [place] [facility] [address] [id number] [place] [address] October, [facility] [place] [facility] [address] [id number] [place] [address] October, [facility] [place] [facility] [address] [id number] [place] [address] October, [facility] [place] [facility] [address] [id number] [place] [address] Sep, [facility] [place] [facility] [address] [id number] [place] [address] Sep, [facility] [place] [facility] [address] [id number] [place] [address]078 26 Sep, 2011 [facility] [place] [facility] [address] [id number] [place] [address]676 25 Sep, 2011 [facility] [place] [facility] [address] [id number] [place] [address] 24 Sep, 2011 [facility] [place] [facility] [address] [id number] [place] [address]183 19 Sep, 2011 [facility] [place] [facility] [address] [id number] [place] [address]21 17 Sep, 2011 [facility] [place] [facility] [address] [id number] [place] [address] 16 Sep, 2011 [facility] [place] [facility] [address] [id number] [place] [address] 4[address] 16 Sep, 2011 [facility] [place] [facility] [address] [id number] [place] [address] 14 Sep, 2011 [facility] [place] [facility] [address] [id number] [place] [address]141 13 Sep, 2011 [facility] [place] [facility] [address] [id number] [place] [address] 10 Sep, 2011 [facility] [place] [facility] [address] [id number] [place] [address] 4[address] 09 Sep, 2011 [facility] [place] [facility] [address] [id number] [place] [address]- 44[address] 27 Aug, 2011 [facility] [place] [facility] [address] [id number] [place] [address] Aug, [facility] [place] [facility] [address] [id number] [place] [address] 08 Aug, 2011 [facility] [place] [facility] [address] [id number] [place] [address] 58[address] 06 Aug, 2011 [facility] [place] [facility] [address] [id number] [place] [address] 28 Jul, 2011 [facility] [place] [facility] [address] [id number] [place] [address] 3431 22 Jul, 2011 [facility] [address] [id number] [place] [address]- 1776 16 Jul, 2011 [facility] [place] [facility] [address] [id number] [place] [address] 2546 15 Jul, 2011 [facility] [address] [id number] [place] [address] 4[address] 14 Jul, 2011 [facility] [place] [facility] [address] [id number] [place] [address] 254 10 Jul, 2011 [facility] [address] [id number] [place] [address]- 8969 30 Jun, 2011 [facility] [address] [id number] [place] [address] Jun, [facility] [address] [id number] [place] [address] Jun, [facility] [address] [id number] [place] [address] Jun, [facility] [address] [id number] [place] [address] Jun, [facility] [address] [id number] [place] [address] 27 May, 2011 [facility] [address] [id number] [place] [address] 2546 May, [facility] [address] [id number] [place] [address] 2546 14 May, 2011 [facility] [place] [facility] [address] [id number] [place] [address] 2546 14 May, 2011 [facility] [place] [facility] [address] [id number] [place] [address] 2546 12 May, 2011 [facility] [place] [facility] [address] [id number] [place] [address] May, [facility] [place] [facility] [address] [id number] [place] [address]- 9870 May, [facility] [place] [facility] [address] [id number] [place] [address]- 49[address] Apr, [facility] [place] [facility] [address] [id number] [place] [address]- [address] Apr, [facility] [place] [facility] [address] [id number] [place] [address]- 2665 Apr, [facility] [place] [facility] [address] [id number] [place] [address]- 227[address] Apr, [facility] [place] [facility] [address] [id number] [place] [address]- 74[address] Apr, [facility] [place] [facility] [address] [id number] [place] [address]- [address] Apr, [facility] [place] [facility] [address] [id number] [place] [address]- 65[address] Mar, [facility] [place] [facility] [address] [id number] [place] [address]- 5449 Mar, [facility] [place] [facility] [address] [id number], [place] [address]- 1617 Mar, [facility] [place] [facility] [address] [id number], [place] [address]- [address]69 Mar, [facility] [place] [facility] [address] [address] [id number], [place] [address] Jan, [facility] [place] [facility] [address] [id number] [place] [address] Dec, [facility] [place] [facility] [address] [id number], [place] [address] Dec, [facility] [place] [facility] [address] [id number], [place] [address] October, [facility] [place] [facility] [address] [id number] [place] [address] 20 Sep, 2010 [facility] [address] [id number] [place] [address] 14 Sep, 2010 [facility] [address] [id number] [place] [address] 17 Jul, 2010 [facility] [address] [id number] [place] [address] 16 Jul, 2010 [facility] [address] [id number] [place] [address] 31 May, 2010 [facility] [address] [id number] [place] [address], [place] [address] 27 May, 2010 [facility] [address] [id number] [place] [address] 08 May, 2010 [facility] [address] [id number] [place] [address] 06 May, 2010 [facility] [address] [id number] [place] [address] 22 Apr, 2010 [facility] [address] [facility] [id number] [place] [address] Apr, [facility] [address] [facility] [id number] [place] [address] 18 Apr, 2010 [facility] [place] [facility] [address] [id number] [place] [address] 18 Apr, 2010 [facility] [place] [facility] [address] [id number] [place] [address] Apr, [facility] [place] [facility] [address] [id number] [place] [address] 21 Mar, 2010 [facility] [place] [facility] [address] [id number] [place] [address] 14 Mar, 2010 [facility] [place] [facility] [address] [id number] [place] [address] 13 Mar, 2010 [facility] [address] [id number], [place] [address] 12 Mar, 2010 [facility] [address] [facility] [id number], [place] [address] Jan, [facility] [address] [facility] [id number], [place] [address] Dec, [facility] [address] [facility] [id number], [place] [address] Sep, [facility] [address] [facility] [id number], [place] [address] May, [facility] [address] [facility] [id number], [place] [address] May, [facility] [address] [facility] [id number], [place] [address] May, [facility] [address] [facility] [id number], [place] [address] Apr, [facility] [address] [facility] [id number], [place] [address] 17 Apr, 2009 [facility] [address] [facility] [id number], [place] [address] Apr, [facility] [address] [facility] [id number], [place] [address] Apr, [facility] [address] [facility] [id number], [place] [address] Apr, [facility] [address] [facility] [id number], [place] [address] Mar, [facility] [address] [facility] [id number], [place] [address] 15 Mar, 2009 [facility] [address] [facility] [id number], [place] [address] 18 Jul, 2008 IMMUNIZATIONS No Known Immunizations SOCIAL HISTORY Never Assessed REASON FOR VISIT EMR-[facility] PLAN OF CARE VITAL SIGNS [...] the January before. 03/2018 Hospitalization History Cellulitis-[facility] 12/20/15 Hospitalization History [facility] [place]- Abd pain 03/07/2017 Hospital[facility] History [facility] [place]- Abd pain 03/14/2017 Hospitalization History [facility] [place]- No bowel movement, rash 04/13/2017 Hospitalization History [facility] [place]- Abd pain r/t kidney surgery on 04/17/2017 Hospitalization History [facility] [place]- Abd pain r/t kidney surgery on 04/18/2017 Hospitalization History [facility] [place]- Lower abd pain 04/30/2017 Hospitalization History [facility] [place]- Cannot urinate 05/30/2017 Hospitalization History [facility] [place]- Pancreatitis Sx 06/29/2017 Hospitalization History [facility] [place]- Stomach pain 07/22/2017 Hospitalization History [facility] [place]- Left side pain 08/12/2017 Hospitalization History [facility] [place]- Incision site infection 08/30/2017 Hospitalization History [facility]- Post Op Seroma/Hematoma Left Abdomen. Discharged 09/04/17- Dr Daniel 09/02/2017 Hospitalization [facility] [place]- Right shoulder and back pain 2017 Hospitalization History [facility] [place]- Shoulder/Back pain 11/11/2017 Hospitalization History [facility] [place]- Right shoulder blade pain 12/04/2017 Hospitalization History [facility] [place]- C-Diff 12/13/2017 Hospitalization History C diff et MRSA 12/27/2017
--- OUTSIDE RECORDS SUMMARY | 2018-10-27 13:04 | XMS REPORT ---
Author Author Migration, Doctor Organization [facility] Address Unknown Phone Unavailable Care Team Providers Care Rnp Name Role Phone Migration, Doctor Unavailable Unavailable PROBLEMS Type Condition ICD9-CM Code PPP97-AL Code Onset Dates Condition Status SNOMED Code Problem Chronic tension-type headache, intractable G44.221 Active 466350734 Problem Right carpal tunnel syndrome G56.01 Active 433954359097699 Problem Hyperlipidemia, mixed E78.2 Active 973079837 Problem Morbid (severe) obesity due to excess calories E66.01 Active 035894214 Problem FH: polycystic ovary Z84.2 Active 750871709 Problem Hirsuties L68.0 Active 187171376 Problem Asthma J45.909 Active 000333557 Problem Chronic pancreatitis K86.1 Active 583365934 Problem Trichotillomania F63.3 Active 87054997 Problem Restless leg syndrome G25.81 Active 38425707 Problem Generalized social phobia F40.11 Active 61081803 Problem Primary osteoarthritis of right knee M17.11 Active 607121383410320 Problem Atelectasis J98.11 Active 35394662 Problem History of renal cell carcinoma Z85.528 Active 396795639 Problem Obesities, morbid E66.01 Active 843416723 Problem Polydipsia R63.1 Active 13849360 Problem Nodule of left lung R91.1 Active 227047261 Problem Chronic post-traumatic stress disorder (PTSD) F43.12 Active 135267152 Problem Moderate episode of recurrent major depressive disorder F33.1 Active 685730605 Problem Chronic fatigue R53.82 Active 29223166 Problem Intestinal malabsorption, unspecified K90.9 Active [id number] ALLERGIES No Information ENCOUNTERS Encounter Location Date Diagnosis [facility] [id number], [place] [address] October, [facility] [address] [facility] [id number] [address] October, [facility] [address], [place] [address] October, [facility] [place] [address] [place] [address] Sep, [facility] [address] [facility] [id number], [place] [address] Sep, [facility] [address], [place] [address] Sep, [facility] [id number] [place] [address] 02880- 2857 Sep, [facility] [id number] [place] [address] 20377- 3061 Sep, Lower extremity edema R60.0 [facility] [address], [place] [address] Sep, [facility] [id number] [place] [address] 49346 -0588 Sep, Lower extremity edema R60.0 and Morbid obesity E66.01 [facility] [address], [place] [address] Sep, [facility] [id number] [place] [address] 61074- 8498 Sep, [facility] [address], [place] [address] Aug, [facility] [address], [place] [address] Aug, Obesities, morbid E66.01 and Morbid obesity E66.01 [facility] [address], [place] [address] Aug, [facility] [place] [address] [address] Jul, [facility] [address], [place] [address] Jul, [facility] [id number] [place] [address] 01221- 5490 Jul, [facility] [id number] [place] [address] 14141- 2888 Jul, Numbness of right hand R20.0 [facility] [id number] [place] [address] 32264- 5348 Jul, [facility] [id number] [place] [address] 69959- 4248 Jul, Numbness of right hand R20.0 [facility] [id number] [place] [address] 29904- 5078 Jul, [facility] [id number] [place] [address] 13095- 4376 Jul, [facility] [id number] [place] [address] 29101- 0561 Jul, Right-sided thoracic back pain M54.6 [facility] [id number] [place] [address] 41481- 5158 Jul, [facility] [id number] [place] [address] 73687- 8314 Jul, [facility] [id number] [place] [address] 35198- 6417 Jul, [facility] [id number] [place] [address] 45888- 7195 Jul, [facility] [id number] [place] [address] 76045- 3508 Jun, [facility] [id number] [place] [address] 29235- 0693 Jun, Acute pain of right shoulder M25.511 ; Numbness of right hand R20.0 and Trapezius muscle spasm M62.838 [facility] [id number] [place] [address] 07094- 3423 Jun, [facility] [id number] [place] [address] 07004- 5284 Jun, [facility] [id number] [place] [address] 44812- 3715 Jun, Cough R05 ; BMI 50.0-59.9, adult Z68.43 and Morbid obesity E66.01 [facility] [address] [address]- 8971 Jun, [facility] [id number] [place] [address] 96627- 7268 Jun, [facility] [id number] [place] [address] 98085 -2095 Jun, BMI 45.0-49.9, adult Z68.42 and Acute non-recurrent maxillary sinusitis J01.00 [facility] [id number] [place] [address] 86152 -7116 Jun, Acute sinusitis J01.90 ; Dysuria R30.0 and BMI 45.0-49.9, adult Z68.42 [facility] [id number] [place] [address] 20568- 7025 Jun, [facility] [id number] [place] [address] 13151- 4481 Jun, [facility] [id number] [place] [address] 83094- 6797 May, [facility] [id number] [place] [address] 55889- 9681 May, [facility] [id number] [place] [address] 62687- 8089 May, [facility] [id number] [place] [address] 85998- 8555 May, [facility] [address] [address]- 7815 May, [place] [id number] [place] [address] 87057- 6951 Apr, Generalized social phobia F40.11 ; Trichotillomania F63.3 ; Chronic post-traumatic stress disorder (PTSD) F43.12 and BMI 45.0-49.9, adult Z68.42 [place] [address] 91765- 9845 Apr, [place] [address] 60876- 4494 Apr, Chronic tension-type headache, intractable G44.221 [place] [address] 36353- 8689 Apr, [facility] [address] [place] [address] 34747 -6237 Mar, [facility] [address] 15109 -3441 Mar, BMI 45.0-49.9, adult Z68.42 and Pimples R23.8 [id number] [place] [address] 90540- 5676 Mar, [place] [id number] [place] [address] 50948- 4399 Mar, [place] [id number] [place] [address] 59407- 0306 Mar, Decreased urination R34 ; Chronic fatigue R53.82 ; Peripheral edema R60.9 ; Diarrhea, unspecified type R19.7 ; Non-intractable vomiting with nausea, unspecified vomiting type R11.2 ; BMI 45.0-49.9, adult Z68.42 and Chronic post-traumatic stress disorder (PTSD) F43.12 [place] [id number] [place] [address] 85062- 9971 Mar, Intestinal malabsorption, unspecified K90.9 ; Diarrhea, unspecified R19.7 ; Urinary urgency R39.15 ; Rectal bleeding K62.5 and Decreased urine output R34 [facility] [id number] [place] [address] 38937- 6127 Mar, Decreased urine output R34 [facility] [id number] [place] [address] 42627- 1059 Mar, Rectal bleeding K62.5 [facility] [address] 79741- 9944 Mar, Rectal bleeding K62.5 [facility] [id number] [place] [address] 22333- 5534 Mar, Urinary urgency R39.15 [facility] [id number] [place] [address] 96387- 7599 Mar, Urinary urgency R39.15 [place] [id number] [place] [address] 52406- 6537 Mar, Primary osteoarthritis of right knee M17.11 and BMI 45.0- 49.9, adult Z68.42 [place] [id number] [place] [address] 62729- 3714 Mar, [facility] [id number] [place] [address] 07869- 2617 Feb, Left upper arm pain M79.622 [facility] [id number] [place] [address] 06538- 9570 Feb, [facility] [id number] [place] [address] 11061- 2940 Jan, Acute pain of right knee M25.561 ; Right upper quadrant abdominal pain R10.11 and BMI 45.0-49.9, adult Z68.42 [facility] [id number] [place] [address] 12865- 3022 Jan, [facility] [id number] [place] [address] 98004- 0201 Jan, [facility] [address], [place] [address]- 8998 Dec, [facility] [id number] [place] [address] 75693- 2584 Dec, Intestinal malabsorption, unspecified K90.9 and Diarrhea, unspecified R19.7 [facility] [id number] [place] [address] 70797- 8265 Dec, [facility] [id number] [place] [address] 81392- 4124 Dec, Strep throat J02.0 ; Intestinal malabsorption, unspecified K90.9 ; Diarrhea, unspecified R19.7 ; Postoperative seroma involving digestive system after non-digestive system procedure K91.873 ; Hyperlipidemia, mixed E78.2 and BMI 45.0-49.9, adult Z68.42 [facility] [id number] [place] [address] 95463- 1075 Dec, [facility] [id number] [place] [address] 22764- 6814 Dec, Nausea R11.0 [facility] [id number] [place] [address] 11487- 6543 Dec, [facility] [address], [place] [address]45 Dec, Sore throat J02.9 ; Strep throat J02.0 and BMI 45.0-49.9, adult Z68.42 [facility] [address], [place] [address]- 9728 Dec, [facility] [id number] [place] [address] 71481- 4662 Dec, [facility] [address], [place] [address]- 7620 Dec, [facility] [id number] [place] [address] 73470- 5125 Dec, [facility] [address], [place] [address]- 5922 Dec, [facility] [id number] [place] [address] 60682- 0286 Dec, [facility] [id number] [place] [address] 60347- 5219 Dec, [facility] [id number] [place] [address] 51829- 8090 Dec, [facility] [id number] [place] [address] 32923- 6921 Dec, Clostridium difficile colitis A04.72 ; Intractable vomiting with nausea, unspecified vomiting type R11.2 and BMI 45.0-49.9, adult Z68.42 [facility] [id number] [place] [address] 75666- 8318 Dec, [facility] [id number], [place] [address]- 2878 Nov, [facility] [id number] [place] [address] 72830- 2390 Nov, [facility] [id number] [place] [address] 06199- 9147 Nov, [facility] [id number] [place] [address] 00602- 3755 Nov, [facility] [address], [place] [address]457 Nov, [facility] [id number] [place] [address] 63189- 5367 Nov, Hyperlipidemia, mixed E78.2 [facility] [address], [place] [address] Nov, Acute suppurative otitis media of right ear without spontaneous rupture of tympanic membrane, recurrence not specified H66.001 and BMI 45.0-49.9, adult Z68.42 [place] [address], [place] [address]- 5037 Nov, Hyperlipidemia, mixed E78.2 [place] [id number] [place] [address] 26667- 4286 Nov, [place] [id number] [place] [address] 35056- 5061 Nov, [place] [id number] [place] [address] 83239- 1330 Nov, Nodule of left lung R91.1 [id number] [place] [address] 84945- 8487 Nov, Medicare annual wellness visit, initial Z00.00 [...] adult Z68.42 and Encounter for immunization Z23 [place] [id number] [place] [address] 15969- 2743 October, [place] [id number] [place] [address] 87077- 8656 October, Nodule of left lung R91.1 [place] [id number] [place] [address] 65752- 5269 October, Nodule of left lung R91.1 [place] [id number] [place] [address] 52858- 0981 October, Recurrent major depressive disorder, in partial remission F33.41 ; Restless leg syndrome G25.81 ; Generalized social phobia F40.11 ; Chronic post-traumatic stress disorder (PTSD) F43.12 ; BMI 45.0-49.9, adult Z68.42 and Trichotillomania F63.3 [place] [id number] [place] [address] 03871- 4598 October, [facility] [id number] [place] [address] 93214- 1649 Sep, Chronic fatigue R53.82 and BMI 45.0-49.9, adult Z68.42 [place] [id number] [place] [address] 86827- 5308 Aug, [place] [id number] [place] [address] 56350- 2899 Jul, Restless leg syndrome G25.81 and B12 deficiency E53.8 [address] [address] 67246- 3730 Jul, [place] [address] 07565- 8804 Jul, [place] [id number] [place] [address] 04191- 4939 Jun, [place] [id number] [place] [address] 76537- 8854 Jun, Fatigue, unspecified type R53.83 ; History of renal cell carcinoma Z85.528 ; Chronic pancreatitis K86.1 ; Restless leg syndrome G25.81 ; Dark urine R82.99 and BMI 45.0-49.9, adult Z68.42 [place] [id number] [place] [address] 54176- 1556 Jun, [place] [address] 12852- 6218 Jun, [facility] [id number] [place] [address] 49193- 1566 Jun, [place] [id number] [place] [address] 96643- 2165 Jun, [place] [address], [place] [address]- 8841 May, Chronic post-traumatic stress disorder (PTSD) F43.12 ; Moderate episode of recurrent major depressive disorder F33.1 ; Trichotillomania F63.3 and Generalized social phobia F40.11 [place] [id number] [place] [address] 22972- 5783 May, [place] [id number] [place] [address] 02778- 9681 May, Chronic post-traumatic stress disorder (PTSD) F43.12 ; Moderate episode of recurrent major depressive disorder F33.1 ; Trichotillomania F63.3 and Generalized social phobia F40.11 [place] [address] [place] [address] 69891- 1532 May, Hyperlipidemia, mixed E78.2 ; Morbid (severe) obesity due to excess calories E66.01 ; Chronic post-traumatic stress disorder (PTSD) F43.12 ; Moderate episode of recurrent major depressive disorder F33.1 ; Trichotillomania F63.3 and Generalized social phobia F40.11 [place] [id number] [place] [address] 25510- 1932 Apr, [place] [id number] [place] [address] 31894- 0158 Apr, Hyperlipidemia, mixed E78.2 ; Morbid (severe) obesity due to excess calories E66.01 ; Chronic post-traumatic stress disorder (PTSD) F43.12 ; Moderate episode of recurrent major depressive disorder F33.1 ; Trichotillomania F63.3 and Generalized social phobia F40.11 [place] [id number] [place] [address] 77353- 1209 Apr, Trichotillomania F63.3 ; Generalized social phobia F40.11 ; Chronic post-traumatic stress disorder (PTSD) F43.12 and Moderate episode of recurrent major depressive disorder F33.1 [place] [id number] [place] [address] 12362- 9893 Apr, [facility] [id number] [place] [address] 85058- 6786 Apr, [facility] [id number] [place] [address] 68381- 3805 Mar, Moderate episode of recurrent major depressive disorder F33.1 ; Trichotillomania F63.3 ; Chronic post-traumatic stress disorder (PTSD) F43.12 ; Generalized social phobia F40.11 and Restless leg syndrome G25.81 [facility] [id number] [place] [address] 86459- 5152 Mar, [facility] [id number] [place] [address] 43028- 4096 Mar, [place] [id number] [place] [address] 14645- 3429 Feb, Left kidney mass N28.89 [facility] [id number] [place] [address] 76076- 5295 Jan, [facility] [id number] [place] [address] 88203- 3909 Dec, Polydipsia R63.1 ; Chronic pancreatitis K86.1 and Fatigue, unspecified type R53.83 [place] [id number] [place] [address] 79378- 7579 Nov, [facility] [id number] [place] [address] 29104- 5654 Nov, [facility] [id number] [place] [address] 89078- 4477 Nov, Headache around the eyes R51 [facility] [id number] [place] [address] 14070- 3311 Nov, [facility] [id number] [place] [address] 27760- 5404 October, STD exposure Z20.2 [facility] [id number] [place] [address] 70045- 5766 October, STD exposure Z20.2 [place] [id number] [place] [address] 77038- 1114 October, Chronic post-traumatic stress disorder (PTSD) F43.12 ; Generalized social phobia F40.11 ; Trichotillomania F63.3 and Restless leg syndrome G25.81 [facility] [id number] [place] [address] 73027- 6115 October, [place] [id number] [place] [address] 44212- 6608 Sep, [facility] [id number] [place] [address] 62985- 3792 Aug, [place] [id number] [place] [address] 14637- 1110 Aug, [facility] [id number] [place] [address] 30842- 3857 Aug, Neck mass R22.1 [place] [id number] [place] [address] 90998- 2095 Aug, Atelectasis J98.11 [place] [id number] [place] [address] 77896- 3524 28 Jul, 2016 Hyperlipidemia, mixed E78.2 ; Atypical pneumonia J18.9 and Neck mass R22.1 [place] [id number] [place] [address] 75089- 5662 15 Jul, 2016 Hemoptysis R04.2 [place] [id number] [place] [address] 08834- 1331 08 Jul, 2016 Acute non-recurrent pansinusitis J01.40 ; Hemoptysis R04.2 ; Polydipsia R63.1 and Malaise R53.81 [facility] [id number] [place] [address] 98033 -7145 May, Other viral agents as the cause of diseases classified elsewhere B97.89 and Acute upper respiratory infection, unspecified J06.9 [facility] [place] [id number] [place] [address] 99525 -9673 Mar, Nausea R11.0 [facility] [place] [id number] [place] [address] 36521 -8995 Dec, Hives L50.9 [place] [address] 40260- 3531 Dec, [facility] [address] [address] -9645 Dec, Cutaneous abscess of limb, unspecified L02.419 ; Cellulitis of unspecified part of limb L03.119 ; Encounter for incision and drainage procedure Z01.89 and Encounter for recheck of abscess following incision and drainage Z09 [facility] [place] [id number] [place] [address] 50373 -7163 Dec, Abscess of leg, right L02.415 [place] [id number] [place] [address] 98444- 2354 Dec, Cellulitis of unspecified part of limb L03.119 and Cutaneous abscess of limb, unspecified L02.419 [place] [address] [place] [id number] [place] [address] 99831- 0303 Dec, [place] [address] [place] [id number] [place] [address] 54256- 2216 Dec, [facility] [place] [address] [place] [id number] [place] [id number] [address][phone] Aug, [place] [address] [place] [id number] [place] [address] 96504- 7464 Aug, [facility] [place] [address] [place] [id number] [place] [address] 21133 -[phone] Jul, Pain in unspecified wrist M25.539 and Back pain, thoracic M54.6 [facility] [id number] [place] [address] [id number] -0184 Jun, Strain of right wrist, initial encounter S66.911A [facility] [address] [place] [id number] [place] [address] 96123- 0648 11 Jun, 2015 Chronic pancreatitis, unspecified pancreatitis type K86.1 ; Hirsuties L68.0 ; Morbid (severe) obesity due to excess calories E66.01 ; Chronic pancreatitis K86.1 and Asthma J45.909 [facility] [address] [place] [id number] [place] [address] 16327- 8637 May, [place] [address] 80[address]- 4214 May, Hyperlipidemia, mixed E78.2 and Muscle spasm of back M62.830 [place] [address] 41143- 1188 Apr, [place] [address] [place] [id number] [place] [address] 73648- 4900 Apr, Torticollis M43.6 [facility] [address] [place] [id number] [place] [address] 78521- 5099 Apr, Right-sided thoracic back pain M54.6 [facility] [address] [place] [id number] [place] [address] 36939- 5133 Mar, Rash R21 [facility] [address] [place] [id number] [place] [address] 57643- 7592 Mar, [place] [address] [place] [id number] [place] [address] 22945- 3303 Jan, [facility] [address] [address]- [address] Dec, [facility] [address] [place] [id number] [place] [address]- 6042 Dec, Urinary frequency 788.41 and Nocturia more than twice per night 788.43 [facility] [id number] [address] Nov, [facility] [id number] [place] [address] 31788- 1576 Nov, [facility] [id number] [place] [address] 33899- 7377 Nov, Abdominal pain 789.00 [facility] [id number] [place] [address] 97154- 6642 October, TDAP DX V06.1 [facility] [id number] [place] [address] 99423- 1881 October, [facility] [id number] [place] [address] 63439- 8720 October, Disturbance of skin sensation 782.0 ; Wrist pain, right 719.43 ; Hyperlipidemia 272.4 and Skin lesion of face 709.9 [facility] [id number] [place] [address] 40009- 5373 Sep, [facility] [id number] [place] [address] 50992- 9365 Sep, [facility] [address] [id number] [address] 3521 Aug, [facility] [id number], [place] [address] 4652 Aug, [facility] [id number], [place] [address]- 1240 Aug, [facility] [id number] [place] [address] 14378- 7167 Aug, [facility] [address] [id number] [address] 4838 Aug, [facility] [id number] [place] [address] 48293- 9826 Aug, [facility] [place] [facility] [address] [id number] [place] [address]- 0865 14 Aug, 2014 [facility] [place] [facility] [address] [id number] [place] [address]- 5771 14 Aug, 2014 [facility] [place] [facility] [address] [id number] [place] [address]- 8565 Aug, [facility] [place] [facility] [address] [id number] [place] [address]- 8118 Aug, [facility] [place] [facility] [address] [id number] [place] [address]- 5837 Aug, [facility] [place] [facility] [address] [id number] [place] [address]- 3948 Aug, [facility] [place] [facility] [address] [id number] [place] [address]- 1068 Aug, [facility] [place] [facility] [address] [id number] [place] [address]- 2182 Aug, [facility] [place] [facility] [address] [id number] [place] [address]- 0052 Jul, [facility] [place] [facility] [address] [id number] [place] [address]- 7474 Jul, 2014 [facility] [place] [facility] [address] [id number] [place] [address]- 5409 Jul, 2014 [facility] [place] [facility] [address] [id number] [place] [address]- 9275 Jul, 2014 [facility] [place] [facility] [address] [id number] [place] [address]- 5119 Jul, [facility] [place] [facility] [address] [id number] [place] [address]- 7916 Jul, [facility] [place] [facility] [address] [id number] [place] [address]- 4126 Jun, [facility] [place] [facility] [address] [id number] [place] [address]- 3516 Jun, [facility] [address] [id number] [place] [address]- 1222 Jun, [facility] [address] [id number] [place] [address]- 3614 Jun, [facility] [address] [id number] [place] [address]- 6350 Jun, [facility] [address] [id number] [place] [address]- 7297 Jun, [facility] [address] [id number] [place] [address]- 0572 Jun, [facility] [address] [id number] [place] [address]- 5538 Jun, [facility] [address] [id number] [place] [address]- 4519 May, [facility] [address] [id number] [place] [address]- 3075 May, [facility] [address] [id number] [place] [address]- 7461 18 May, 2014 [facility] [address] [id number] [place] [address]- 9676 18 May, 2014 [facility] [place] [facility] [address] [id number] [place] [address]- 8244 15 May, 2014 [facility] [address] [id number] [place] [address]- 7782 15 May, 2014 [facility] [place] [facility] [address] [id number] [place] [address]- 0998 May, [facility] [place] [facility] [address] [id number] [place] [address]- 1765 May, [facility] [place] [facility] [address] [id number] [place] [address]- 3381 May, [facility] [place] [facility] [address] [id number] [place] [address]- 5562 May, [facility] [place] [facility] [address] [id number] [place] [address]- 6647 May, [facility] [place] [facility] [address] [id number] [place] [address]- 7095 May, [facility] [place] [facility] [address] [id number] [place] [address]- 1564 Apr, [facility] [place] [facility] [address] [id number] [place] [address]- 2408 Apr, [facility] [place] [facility] [address] [id number] [place] [address]- 2075 Apr, [facility] [place] [facility] [address] [id number] [place] [address]- 0737 Apr, [facility] [place] [facility] [address] [id number] [place] [address]- 3932 Apr, [facility] [place] [facility] [address] [id number] [place] [address]- 5870 Apr, [facility] [place] [facility] [address] [id number] [place] [address]- 9104 Apr, [facility] [place] [facility] [address] [id number] [place] [address]- 8808 Apr, [facility] [place] [facility] [address] [id number], [place] [address]- 5277 Apr, [facility] [place] [facility] [address] [id number] [place] [address]- 7120 Apr, [facility] [place] [facility] [address] [id number] [place] [address]- 9196 Apr, [facility] [place] [facility] [address] [id number], [place] [address]- 3985 Apr, [facility] [place] [facility] [address] [id number], [place] [address]- 6002 Mar, [facility] [place] [facility] [address] [id number] [place] [address]- 0922 Mar, [facility] [place] [facility] [address] [id number] [place] [address]- 0654 Mar, [facility] [place] [facility] [address] [id number] [place] [address]- 6513 Mar, [facility] [place] [facility] [address] [id number] [place] [address]- 8690 Feb, [facility] [place] [facility] [address] [id number] [place] [address]- 4144 Feb, [facility] [place] [facility] [address] [id number] [place] [address]- 9969 05 Feb, 2014 [facility] [place] [facility] [address] [id number] [place] [address]- 8117 Feb, [facility] [place] [facility] [address] [id number] [place] [address]- 1436 Feb, [facility] [place] [facility] [address] [id number] [place] [address]- 4120 Feb, [facility] [place] [facility] [address] [id number] [place] [address]- 6178 Jan, [facility] [place] [facility] [address] [id number] [place] [address]- 7184 Jan, [facility] [place] [facility] [address] [id number] [place] [address]- 2999 Jan, [facility] [place] [facility] [address] [id number] [place] [address]- 9615 Jan, [facility] [place] [facility] [address] [id number] [place] [address]- 4477 Jan, [facility] [place] [facility] [address] [id number] [place] [address]- 2921 Jan, [facility] [place] [facility] [address] [id number] [place] [address]- 1667 Jan, 2013 [facility] [place] [facility] [address] [id number] [place] [address]- 8782 Jan, [facility] [place] [facility] [address] [id number] [place] 2469 Jan, [facility] [place] [facility] [address] [id number] [place] [address]- 1240 Jan, [facility] [place] [facility] [address] [id number] [place] [address]- 0008 Jan, [facility] [place] [facility] [address] [id number] [place] [address]- 2240 Jan, [facility] [place] [facility] [address] [id number] [place] [address]- 8255 Jan, [facility] [place] [facility] [address] [id number] [place] [address]- 9888 Jan, [facility] [place] [facility] [address] [id number] [place] [address]- 7805 Dec, [facility] [place] [facility] [address] [id number] [place] [address]- 6610 Dec, [facility] [place] [facility] [address] [id number] [place] [address]- 6505 Dec, [facility] [place] [facility] [address] [id number] [place] [address]- 4441 Dec, [facility] [place] [facility] [address] [id number] [place] [address]- 1289 Nov, [facility] [place] [facility] [address] [id number] [place] [address]- 9644 Nov, [facility] [place] [facility] [address] [id number] [place] [address]- 2593 Nov, [facility] [place] [facility] [address] [id number] [place] [address]- 0488 Nov, [facility] [place] [facility] [address] [id number] [place] [address]- 3115 Nov, [facility] [place] [facility] [address] [id number] [place] [address]- 8749 October, [facility] [place] [facility] [address] [id number] [place] [address]- 7529 October, [facility] [place] [facility] [address] [id number] [place] [address]- 4622 October, [facility] [place] [facility] [address] [id number] [place] [address]- 2551 October, [facility] [place] [facility] [address] [id number] [place] [address]- 4914 October, [facility] [place] [facility] [address] [id number] [place] [address]- 4121 October, [facility] [place] [facility] [address] [id number] [place] [address]- 6475 October, [facility] [place] [facility] [address] [id number] [place] [address]- 4888 October, [facility] [place] [facility] [address] [id number] [place] [address]- 1186 October, [facility] [place] [facility] [address] [id number] [place] [address]- 6087 October, [facility] [place] [facility] [address] [id number] [place] [address]- 4999 October, [facility] [place] [facility] [address] [id number] [place] [address]- 0163 October, [facility] [place] [facility] [address] [id number] [place] [address]- 7043 October, [facility] [place] [facility] [address] [id number] [place] [address]- 4520 October, [facility] [place] [facility] [address] [id number] [place] [address]- 0596 17 Sep, 2013 [facility] [place] [facility] [address] [id number] [place] [address]- 2046 17 Sep, 2013 [facility] [place] [facility] [address] [id number] [place] [address]- 0538 Sep, [facility] [place] [facility] [address] [id number] [place] [address]- 8047 Sep, [facility] [place] [facility] [address] [id number] [place] [address]- 9222 Sep, [facility] [place] [facility] [address] [id number] [place] [address]- 3789 Sep, [facility] [place] [facility] [address] [id number] [place] [address]- 1174 Sep, [facility] [place] [facility] [address] [id number] [place] [address]- 3986 Sep, [facility] [place] [facility] [address] [id number] [place] [address]- 7936 Sep, [facility] [place] [facility] [address] [id number] [place] [address]- 3566 Sep, [facility] [place] [facility] [address] [id number] [place] [address]- 1293 Sep, [facility] [place] [facility] [address] [id number] [place] [address]- 6992 Sep, [facility] [place] [facility] [address] [id number] [place] [address]- 4345 Sep, [facility] [place] [facility] [address] [id number] [place] [address]- 7962 Sep, [facility] [place] [facility] [address] [id number] [place] [address]- 3141 Sep, [facility] [place] [facility] [address] [id number] [place] [address]- 2750 Aug, [facility] [place] [facility] [address] [id number] [place] [address]- 5570 Aug, [facility] [place] [facility] [address] [id number] [place] [address]- 3360 Aug, [facility] [place] [facility] [address] [id number] [place] [address]- 9896 Aug, [facility] [place] [facility] [address] [id number] [place] [address]- 6920 Jul, [facility] [place] [facility] [address] [id number] [place] [address]- 6268 Jul, [facility] [place] [facility] [address] [id number] [place] [address]- 0958 Jul, [facility] [place] [facility] [address] [id number] [place] [address]- 5653 Jul, [facility] [place] [facility] [address] [id number] [place] [address]- 9426 Jun, [facility] [place] [facility] [address] [id number] [place] [address]- 7579 Jun, [facility] [place] [facility] [address] [id number] [place] [address]- 4837 Jun, [facility] [place] [facility] [address] [id number] [place] [address]- 5544 Jun, [facility] [place] [facility] [address] [id number] [place] [address]- 4321 Jun, [facility] [place] [facility] [address] [id number] [place] [address]- 7917 Jun, [facility] [place] [facility] [address] [id number] [place] [address]- 5827 Jun, [facility] [place] [facility] [address] [id number] [place] [address]- 2615 Jun, [facility] [place] [facility] [address] [id number], [place] [address]- 4807 20 May, 2013 [facility] [address] [id number] [place] [address]- 6017 20 May, 2013 [facility] [address] [id number] [place] 5791 18 May, 2013 [facility] [address] [id number] [place] 3627 18 May, 2013 [facility] [address] [id number] [place] [address]- 2687 17 May, 2013 [facility] [address] [id number] [place] [id number] 17 May, 2013 [facility] [address] [id number] [place] [address]- 2208 17 May, 2013 [facility] [address] [id number] [place] [address]- 6462 17 May, 2013 [facility] [address] [id number] [place] [address]- 1295 16 May, 2013 [facility] [address] [id number] [place] [address]- 1369 16 May, 2013 [facility] [address] [id number] [place] [address]- 0229 14 May, 2013 [facility] [address] [id number] [place] [address]- 2689 14 May, 2013 [facility] [address] [id number] [place] [address]- 3797 13 May, 2013 [facility] [address] [id number] [place] [address]- 8046 13 May, 2013 [facility] [place] [facility] [address] [id number] [place] 9972 12 May, 2013 [facility] [address] [id number] [place] [address]- 5419 12 May, 2013 [facility] [place] [facility] [address] [id number] [place] [address]- 5989 May, [facility] [address] [id number] [place] [address]- 3214 May, [facility] [address] [id number] [place] [address]- 7412 Apr, [facility] [address] [id number] [place] [address]- 8822 Apr, [facility] [address] [id number] [place] [address]- 1103 Apr, [facility] [address] [id number] [place] [address]- 6405 Apr, [facility] [address] [id number] [place] [address]- 7785 Aug, [facility] [address] [id number] [place] [address]- 4978 Aug, [facility] [address] [id number] [place] [address]- 8457 Aug, [facility] [address] [id number] [place] [address]- 1665 Aug, [facility] [address] [id number] [place] [address]- 7162 Jul, [facility] [address] [id number] [place] [address]- 2771 Jun, [facility] [address] [id number] [place] [address]- 0016 Jun, [facility] [address] [id number] [place] [address]- 2546 Jun, [facility] [address] [id number] [place] [address]- 2546 Jun, [facility] [address] [id number] [place] [address]- 8365 May, [facility] [place] [facility] [address] [id number] [place] [address]- 4279 May, [facility] [place] [facility] [address] [id number] [place] [address]- 1465 May, [facility] [place] [facility] [address] [id number] [place] 4311 May, [facility] [place] [facility] [address] [id number] [place] [address]- 4338 May, [facility] [place] [facility] [address] [id number] [place] [address]- 5976 May, [facility] [place] [facility] [address] [id number] [place] [address]- 6753 May, [facility] [place] [facility] [address] [facility] [id number] [place] [address]- 1001 Apr, [facility] [place] [facility] [address] [id number], [place] [address]- 9141 Apr, [facility] [place] [facility] [address] [id number] [place] [address]- 1796 Apr, [facility] [place] [facility] [address] [facility] [id number], [place] [address]- 9403 Apr, [facility] [place] [facility] [address] [id number], [place] [address]- 9575 Apr, [facility] [place] [facility] [address] [id number], [place] [address]- 1566 Apr, [facility] [place] [facility] [address] [id number], [place] [address]- 5780 Apr, [facility] [place] [facility] [address] [id number], [place] [address]- 2046 Mar, [facility] [place] [facility] [address] [id number], [place] [address]- 1600 Mar, [facility] [place] [facility] [address] [id number] [place] [address]- 6333 19 Mar, 2012 [facility] [place] [facility] [address] [id number] [place] [address]- 3950 Mar, 2011 [facility] [place] [facility] [address] [id number] [place] 9525 Mar, [facility] [place] [facility] [address] [id number] [place] [address]- 3729 Mar, [facility] [place] [facility] [address] [id number] [place] [address]- 4866 Mar, [facility] [place] [facility] [address] [id number] [place] 0537 Mar, [facility] [place] [facility] [address] [id number] [place] [address]- 7855 Mar, [facility] [place] [facility] [address] [id number] [place] [address]- 7251 Mar, [facility] [place] [facility] [address] [id number] [place] [address]- 5023 Mar, [facility] [place] [facility] [address] [id number] [place] [address]- 6561 Mar, [facility] [place] [facility] [address] [facility] [id number] [place] [address]- 3184 Feb, [facility] [place] [facility] [address] [id number] [place] [address]- 1668 Jan, [facility] [place] [facility] [address] [id number] [place] [address]- 0150 Jan, [facility] [place] [facility] [address] [id number] [place] [address]- 3849 Jan, [facility] [place] [facility] [address] [id number] [place] [address]- 1440 Jan, [facility] [place] [facility] [address] [facility] [id number] [place] [address] Jan, [facility] [place] [facility] [address] [id number] [place] [address] Dec, [facility] [place] [facility] [address] [id number] [place] [address] Dec, [facility] [place] [facility] [address] [id number] [place] [address] Nov, [facility] [place] [facility] [address] [id number] [place] [address] Nov, [facility] [place] [facility] [address] [id number] [place] [address] Nov, [facility] [place] [facility] [address] [id number] [place] [address] October, [facility] [address] [id number] [place] [address] October, [facility] [address] [id number] [place] [address] October, [facility] [address] [id number] [place] [address] October, [facility] [place] [facility] [address] [id number] [place] [address] October, [facility] [place] [facility] [address] [id number] [place] [address] October, [facility] [place] [facility] [address] [id number] [place] [address] October, [facility] [place] [facility] [address] [id number] [place] [address] Sep, [facility] [place] [facility] [address] [id number] [place] [address] Sep, [facility] [place] [facility] [address] [id number] [place] [address] Sep, [facility] [place] [facility] [address] [id number] [place] [address] 25 Sep, 2011 [facility] [place] [facility] [address] [id number] [place] [address] 24 Sep, 2011 [facility] [place] [facility] [address] [id number] [place] [address] 19 Sep, 2011 [facility] [place] [facility] [address] [id number] [place] [address]- [address]5 17 Sep, 2011 [facility] [place] [facility] [address] [id number] [place] [address] 4664 16 Sep, 2011 [facility] [place] [facility] [address] [id number] [place] [address] 16 Sep, 2011 [facility] [place] [facility] [address] [id number] [place] [address] 480[address] 14 Sep, 2011 [facility] [place] [facility] [address] [id number] [place] [address] 13 Sep, 2011 [facility] [place] [facility] [address] [id number] [place] [address] 10 Sep, 2011 [facility] [place] [facility] [address] [id number] [place] [address] 09 Sep, 2011 [facility] [place] [facility] [address] [id number] [place] [address] 27 Aug, 2011 [facility] [place] [facility] [address] [id number] [place] [address]- [address] 12 Aug, 2011 [facility] [place] [facility] [address] [id number] [place] [address] 40[address] 08 Aug, 2011 [facility] [place] [facility] [address] [id number] [place] [address] 06 Aug, 2011 [facility] [place] [facility] [address] [id number] [place] [address] 28 Jul, 2011 [facility] [place] [facility] [address] [id number] [place] [address] Jul, [facility] [place] [facility] [address] [id number] [place] [address] 16 Jul, 2011 [facility] [address] [id number] [place] [address] 15 Jul, 2011 [facility] [place] [facility] [address] [id number] [place] [address]- [address] 14 Jul, 2011 [facility] [place] [facility] [address] [id number] [place] [address] 10 Jul, 2011 [facility] [place] [facility] [address] [id number] [place] [address] 30 Jun, 2011 [facility] [place] [facility] [address] [id number] [place] [address] 05 Jun, 2011 [facility] [address] [id number] [place] [address] Jun, [facility] [address] [id number] [place] [address] Jun, [facility] [address] [id number] [place] [address] Jun, [facility] [address] [id number] [place] [address] May, [facility] [address] [id number] [place] [address] May, [facility] [place] [facility] [address] [id number] [place] [address] 14 May, 2011 [facility] [place] [facility] [address] [id number] [place] [address] 14 May, 2011 [facility] [place] [facility] [address] [id number] [place] [address]- 7436 12 May, 2011 [facility] [place] [facility] [address] [id number] [place] [address] 07 May, 2011 [facility] [place] [facility] [address] [id number] [place] [address] May, [facility] [place] [facility] [address] [id number] [place] [address] Apr, [facility] [place] [facility] [address] [id number] [place] [address] Apr, [facility] [place] [facility] [address] [id number] [place] [address] Apr, [facility] [place] [facility] [address] [id number] [place] [address] Apr, [facility] [place] [facility] [address] [id number] [place] [address] Apr, [facility] [place] [facility] [address] [id number] [place] [address]- [address] Apr, [facility] [place] [facility] [address] [id number] [place] [address] Mar, [facility] [place] [facility] [address] [id number] [place] [address]- 20[address] Mar, [facility] [place] [facility] [address] [id number] [place] [address]- 74[address] Mar, [facility] [place] [facility] [address] [id number] [place] [address] 39[address] Mar, [facility] [place] [facility] [address] [id number], [place] [address] Jan, [facility] [place] [facility] [address] [address] [id number], [place] [address] Dec, [facility] [place] [facility] [address] [id number] [place] [address] Dec, [facility] [place] [facility] [address] [id number], [place] [address] October, [facility] [place] [facility] [address] [id number] [place] [address] Sep, [facility] [place] [facility] [address] [id number] [place] [address] 14 Sep, 2010 [facility] [address] [id number] [place] [address] 17 Jul, 2010 [facility] [address] [id number] [place] [address] 16 Jul, 2010 [facility] [address] [id number] [place] [address] 31 May, 2010 [facility] [place] [facility] [address] [id number] [place] [address] 27 May, 2010 [facility] [id number] [place] [address], [place] [address] 08 May, 2010 [facility] [address] [id number] [place] [address] 06 May, 2010 [facility] [address] [id number] [place] [address] Apr, [facility] [address] [id number] [place] [address] Apr, [facility] [address] [id number] [place] [address] Apr, [facility] [address] [facility] [id number] [place] [address] 18 Apr, 2010 [facility] [place] [facility] [address] [id number] [place] [address] Apr, [facility] [place] [facility] [address] [id number] [place] [address] 21 Mar, 2010 [facility] [place] [facility] [address] [id number] [place] [address] 14 Mar, 2010 [facility] [place] [facility] [address] [id number] [place] [address] 13 Mar, 2010 [facility] [place] [facility] [address] [id number] [place] [address] Mar, [facility] [address] [facility] [id number], [place] [address] Jan, [facility] [address] [facility] [id number][place] [address] Dec, [facility] [id number] [address] Sep, [facility] [id number], [place] [address] May, [facility] [address] [facility] [id number][place] [address] May, [facility] [id number] [address] May, [facility] [id number], [place] [address] Apr, [facility] [id number], [place] [address] Apr, [facility] [id number], [place] [address] Apr, [facility] [address] [id number], [place] [address] Apr, [facility] [id number], [place] [address] Apr, [facility] [address] [id number], [place] [address] Mar, [facility] [address] [id number], [place] [address] Mar, [facility] [address] [id number], [place] [address] Jul, IMMUNIZATIONS No Known Immunizations SOCIAL HISTORY Never Assessed REASON FOR VISIT [facility]MR-[facility] PLAN OF CARE VITAL SIGNS MEDICATIONS Unknown [...] the January before. 03/2018 Hospitalization History Cellulitis-[facility] 12/20/15 Hospitalization History [facility]- Abd pain 03/07/2017 Hospitalization History [facility]- Abd pain 03/14/2017 Hospitalization History [facility]- No bowel movement, rash 04/13/2017 Hospitalization History [facility]- Abd pain r/t kidney surgery on 04/17/2017 Hospitalization History [facility]- Abd pain r/t kidney surgery on 04/18/2017 Hospitalization History [facility]- Lower abd pain 04/30/2017 Hospitalization History [facility]- Cannot urinate 05/30/2017 Hospitalization History [facility]- Pancreatitis Sx 06/29/2017 Hospitalization History [facility]- Stomach pain 07/22/2017 Hospitalization History [facility]- Left side pain 08/12/2017 Hospitalization History [facility]- Incision site infection 08/30/2017 Hospitalization History [facility]- Post Op Seroma/Hematoma Left Abdomen. Discharged 09/04/17- Dr Daniel 09/02/2017 Hospitalization History [facility]- Right shoulder and back pain 2017 Hospitalization History [facility]- Shoulder/Back pain 11/11/2017 Hospitalization History [facility]- Right shoulder blade pain 12/04/2017 Hospitalization History [facility]- C-Diff 12/13/2017 Hospitalization History C diff et MRSA 12/27/2017
--- OUTSIDE RECORDS SUMMARY | 2018-10-27 13:05 | XMS REPORT ---
Author Author Migration, Doctor Organization [facility] Address Unknown Phone Unavailable Care Team Providers Care Hearing Aid Mechanic Name Role Phone Migration, Doctor Unavailable Unavailable PROBLEMS Type Condition ICD9-CM Code RTO99-BW Code Onset Dates Condition Status SNOMED Code Problem Chronic tension-type headache, intractable G44.221 Active 641300591 Problem Right carpal tunnel syndrome G56.01 Active 171123724676378 Problem Hyperlipidemia, mixed E78.2 Active 919175039 Problem Morbid (severe) obesity due to excess calories E66.01 Active 506141157 Problem FH: polycystic ovary Z84.2 Active 538362379 Problem Hirsuties L68.0 Active 065032654 Problem Asthma J45.909 Active 671208316 Problem Chronic pancreatitis K86.1 Active 118398602 Problem Trichotillomania F63.3 Active 51321313 Problem Restless leg syndrome G25.81 Active 24903731 Problem Generalized social phobia F40.11 Active 13582100 Problem Primary osteoarthritis of right knee M17.11 Active 661263943763644 Problem Atelectasis J98.11 Active 99224876 Problem History of renal cell carcinoma Z85.528 Active 867064293 Problem Obesities, morbid E66.01 Active 989957787 Problem Polydipsia R63.1 Active 55497525 Problem Nodule of left lung R91.1 Active 890451703 Problem Chronic post-traumatic stress disorder (PTSD) F43.12 Active 826540083 Problem Moderate episode of recurrent major depressive disorder F33.1 Active 184001442 Problem Chronic fatigue R53.82 Active 75596763 Problem Intestinal malabsorption, unspecified K90.9 Active 54159857 ALLERGIES No Information ENCOUNTERS Encounter Location Date Diagnosis [facility] [id number], [place] [address] October, [facility] [address] [facility] [id number] [address] October, [facility] [address], [place] [address] October, [facility] [address] [place] [address] Sep, [facility] [address] [facility] [id number] [address] Sep, [facility] [address], [place] [address] Sep, [facility] [id number] [place] [address] 35113- 7348 Sep, [facility] [id number] [place] [address] 20338- 8840 Sep, Lower extremity edema R60.0 [facility] [address], [place] [address] Sep, [facility] [id number] [place] [address] 86570 -0116 Sep, Lower extremity edema R60.0 and Morbid obesity E66.01 [facility] [address], [place] [address] Sep, [facility] [id number] [place] [address] 89411- 5320 Sep, [facility] [address], [place] [address] Aug, [facility] [address], [place] [address] Aug, Obesities, morbid E66.01 and Morbid obesity E66.01 [facility] [address], [place] [address] Aug, [facility] [address] [address] Jul, [facility] [address], [place] [address] Jul, [facility] [id number] [place] [address] 52396- 5943 Jul, [facility] [id number] [place] [address] 30607- 6369 Jul, Numbness of right hand R20.0 [facility] [id number] [place] [address] 25920- 1809 Jul, [facility] [id number] [place] [address] 07901- 4699 Jul, Numbness of right hand R20.0 [facility] [id number] [place] [address] 52845- 0549 Jul, [facility] [id number] [place] [address] 70505- 1574 Jul, [facility] [id number] [place] [address] 23419- 0358 Jul, Right-sided thoracic back pain M54.6 [facility] [id number] [place] [address] 01846- 2279 Jul, [facility] [id number] [place] [address] 44333- 3856 Jul, [facility] [id number] [place] [address] 09773- 7252 Jul, [facility] [id number] [place] [address] 16211- 1370 Jul, [facility] [address] [place] [address] 59014- 5681 Jun, [facility] [id number] [place] [address] 05654- 7030 Jun, Acute pain of right shoulder M25.511 ; Numbness of right hand R20.0 and Trapezius muscle spasm M62.838 [facility] [id number] [place] [address] 66971- 6269 Jun, [facility] [id number] [place] [address] 08307- 6497 Jun, [facility] [id number] [place] [address] 27662- 7148 Jun, Cough R05 ; BMI 50.0-59.9, adult Z68.43 and Morbid obesity E66.01 [facility] [address] [address]- 8926 Jun, [facility] [id number] [place] [address] 29589- 9751 Jun, [facility] [id number] [place] [address] 55901 -1766 Jun, BMI 45.0-49.9, adult Z68.42 and Acute non-recurrent maxillary sinusitis J01.00 [facility] [id number] [place] [address] 56148 -5616 Jun, Acute sinusitis J01.90 ; Dysuria R30.0 and BMI 45.0-49.9, adult Z68.42 [facility] [id number] [place] [address] 92409- 9307 Jun, [facility] [id number] [place] [address] 48170- 0634 Jun, [facility] [id number] [place] [address] 03675- 2303 May, [facility] [id number] [place] [address] 00160- 6223 May, [facility] [id number] [place] [address] 30580- 0335 May, [facility] [id number] [place] [address] 17422- 9009 May, [facility] [address] [address]- 8543 May, [place] [id number] [place] [address] 21222- 5800 Apr, Generalized social phobia F40.11 ; Trichotillomania F63.3 ; Chronic post-traumatic stress disorder (PTSD) F43.12 and BMI 45.0-49.9, adult Z68.42 [place] [address] 73700- 8352 Apr, [place] [address] 14467- 1177 Apr, Chronic tension-type headache, intractable G44.221 [place] [address] 73558- 6307 Apr, [facility] [address] [place] [address] 16327 -7771 Mar, [facility] [address] 7[address]99 -[address]100 Mar, BMI 45.0-49.9, adult Z68.42 and Pimples R23.8 [id number] [place] [address] 26962- 3268 Mar, [place] [id number] [place] [address] 62733- 0514 Mar, [place] [id number] [place] [address] 81365- 5684 Mar, Decreased urination R34 ; Chronic fatigue R53.82 ; Peripheral edema R60.9 ; Diarrhea, unspecified type R19.7 ; Non-intractable vomiting with nausea, unspecified vomiting type R11.2 ; BMI 45.0-49.9, adult Z68.42 and Chronic post-traumatic stress disorder (PTSD) F43.12 [place] [id number] [place] [address] 63916- 4757 Mar, Intestinal malabsorption, unspecified K90.9 ; Diarrhea, unspecified R19.7 ; Urinary urgency R39.15 ; Rectal bleeding K62.5 and Decreased urine output R34 [facility] [id number] [place] [address] 90793- 3280 Mar, Decreased urine output R34 [facility] [id number] [place] [address] 95166- 3748 Mar, Rectal bleeding K62.5 [facility] [address] 60710- 1521 Mar, Rectal bleeding K62.5 [facility] [id number] [place] [address] 80605- 3081 Mar, Urinary urgency R39.15 [facility] [id number] [place] [address] 72777- 8134 Mar, Urinary urgency R39.15 [place] [id number] [place] [address] 18438- 3786 Mar, Primary osteoarthritis of right knee M17.11 and BMI 45.0- 49.9, adult Z68.42 [place] [id number] [place] [address] 34842- 8858 Mar, [facility] [id number] [place] [address] 32574- 3506 Feb, Left upper arm pain M79.622 [facility] [id number] [place] [address] 27539- 6463 Feb, [facility] [id number] [place] [address] 01470- 6507 Jan, Acute pain of right knee M25.561 ; Right upper quadrant abdominal pain R10.11 and BMI 45.0-49.9, adult Z68.42 [facility] [id number] [place] [address] 55311- 0277 Jan, [facility] [id number] [place] [address] 07718- 0977 Jan, [facility] [address], [place] [address]- 0340 Dec, [facility] [id number] [place] [address] 16439- 3096 Dec, Intestinal malabsorption, unspecified K90.9 and Diarrhea, unspecified R19.7 [facility] [id number] [place] [address] 33297- 1448 Dec, [facility] [id number] [place] [address] 60016- 7830 Dec, Strep throat J02.0 ; Intestinal malabsorption, unspecified K90.9 ; Diarrhea, unspecified R19.7 ; Postoperative seroma involving digestive system after non-digestive system procedure K91.873 ; Hyperlipidemia, mixed E78.2 and BMI 45.0-49.9, adult Z68.42 [facility] [id number] [place] [address] 83150- 2539 Dec, [facility] [address] [place] [address] 79548- 2875 Dec, Nausea R11.0 [facility] [id number] [place] [address] 66272- 6331 Dec, [facility] [address], [place] [address] Dec, Sore throat J02.9 ; Strep throat J02.0 and BMI 45.0-49.9, adult Z68.42 [facility] [address], [place] [address]- 2365 Dec, [facility] [id number] [place] [address] 69205- 2596 Dec, [facility] [address], [place] [address]- 3060 Dec, [facility] [id number] [place] [address] 99175- 4204 Dec, [facility] [address], [place] [address]- 8082 Dec, [facility] [id number] [place] [address] 06745- 6699 Dec, [facility] [address] [place] [address] 91659- 8826 Dec, [facility] [id number] [place] [address] 27629- 1958 Dec, [facility] [address] [place] [address] 38269- 8464 Dec, Clostridium difficile colitis A04.72 ; Intractable vomiting with nausea, unspecified vomiting type R11.2 and BMI 45.0-49.9, adult Z68.42 [facility] [id number] [place] [address] 58939- 4964 Dec, [facility] [address], [place] [address]- 1817 Nov, [facility] [id number] [place] [address] 90644- 9178 Nov, [facility] [id number] [place] [address] 02238- 7335 Nov, [facility] [address] [place] [address] 43195- 0295 Nov, [facility] [address], [place] [address]106 Nov, [facility] [id number] [place] [address] 16667- 1658 Nov, Hyperlipidemia, mixed E78.2 [facility] [address], [place] [address] Nov, Acute suppurative otitis media of right ear without spontaneous rupture of tympanic membrane, recurrence not specified H66.001 and BMI 45.0-49.9, adult Z68.42 [address] [address], [place] [address]- 4846 Nov, Hyperlipidemia, mixed E78.2 [place] [address] [place] [address] 41947- 7680 Nov, [place] [id number] [place] [address] 22437- 4793 Nov, [place] [id number] [place] [address] 98736- 3259 Nov, Nodule of left lung R91.1 [id number] [place] [address] 06773- 3803 Nov, Medicare annual wellness visit, initial Z00.00 [...] adult Z68.42 and Encounter for immunization Z23 [place] [address] [place] [address] 99842- 7737 October, [place] [address] [place] [address] 09837- 1765 October, Nodule of left lung R91.1 [place] [id number] [place] [address] 81618- 7082 October, Nodule of left lung R91.1 [place] [address] [place] [address] 13309- 5402 October, Recurrent major depressive disorder, in partial remission F33.41 ; Restless leg syndrome G25.81 ; Generalized social phobia F40.11 ; Chronic post-traumatic stress disorder (PTSD) F43.12 ; BMI 45.0-49.9, adult Z68.42 and Trichotillomania F63.3 [place] [id number] [place] [address] 86868- 0131 October, [facility] [id number] [place] [address] 56995- 2331 Sep, Chronic fatigue R53.82 and BMI 45.0-49.9, adult Z68.42 [place] [id number] [place] [address] 57072- 0762 Aug, [place] [id number] [place] [address] 57259- 3528 Jul, Restless leg syndrome G25.81 and B12 deficiency E53.8 [place] [address] 71044- 0104 Jul, [place] [address] 97717- 3184 Jul, [place] [id number] [place] [address] 75861- 6019 Jun, [place] [id number] [place] [address] 79485- 6034 Jun, Fatigue, unspecified type R53.83 ; History of renal cell carcinoma Z85.528 ; Chronic pancreatitis K86.1 ; Restless leg syndrome G25.81 ; Dark urine R82.99 and BMI 45.0-49.9, adult Z68.42 [place] [id number] [place] [address] 10661- 1621 Jun, [place] [address] 70357- 1423 Jun, [facility] [id number] [place] [address] 13220- 9004 Jun, [place] [id number] [place] [address] 06857- 2462 Jun, [place] [address], [place] [address]- 9699 May, Chronic post-traumatic stress disorder (PTSD) F43.12 ; Moderate episode of recurrent major depressive disorder F33.1 ; Trichotillomania F63.3 and Generalized social phobia F40.11 [place] [id number] [place] [address] 70997- 6562 May, [place] [id number] [place] [address] 34472- 1953 May, Chronic post-traumatic stress disorder (PTSD) F43.12 ; Moderate episode of recurrent major depressive disorder F33.1 ; Trichotillomania F63.3 and Generalized social phobia F40.11 [place] [address] [place] [address] 21717- 1795 May, Hyperlipidemia, mixed E78.2 ; Morbid (severe) obesity due to excess calories E66.01 ; Chronic post-traumatic stress disorder (PTSD) F43.12 ; Moderate episode of recurrent major depressive disorder F33.1 ; Trichotillomania F63.3 and Generalized social phobia F40.11 [place] [address] [place] [address] 56413- 5292 Apr, [place] [address] [place] [address] 93543- 3949 Apr, Hyperlipidemia, mixed E78.2 ; Morbid (severe) obesity due to excess calories E66.01 ; Chronic post-traumatic stress disorder (PTSD) F43.12 ; Moderate episode of recurrent major depressive disorder F33.1 ; Trichotillomania F63.3 and Generalized social phobia F40.11 [place] [id number] [place] [address] 63338- 5711 Apr, Trichotillomania F63.3 ; Generalized social phobia F40.11 ; Chronic post-traumatic stress disorder (PTSD) F43.12 and Moderate episode of recurrent major depressive disorder F33.1 [place] [id number] [place] [address] 32185- 4619 Apr, [facility] [id number] [place] [address] 14141- 7436 Apr, [facility] [id number] [place] [address] 38039- 2541 Mar, Moderate episode of recurrent major depressive disorder F33.1 ; Trichotillomania F63.3 ; Chronic post-traumatic stress disorder (PTSD) F43.12 ; Generalized social phobia F40.11 and Restless leg syndrome G25.81 [facility] [id number] [place] [address] 57108- 5404 Mar, [facility] [id number] [place] [address] 56189- 4825 Mar, [place] [id number] [place] [address] 83935- 0933 Feb, Left kidney mass N28.89 [facility] [id number] [place] [address] 65558- 5844 Jan, [facility] [id number] [place] [address] 20828- 6249 Dec, Polydipsia R63.1 ; Chronic pancreatitis K86.1 and Fatigue, unspecified type R53.83 [place] [id number] [place] [address] 67615- 4507 Nov, [facility] [id number] [place] [address] 47654- 9785 Nov, [facility] [id number] [place] [address] 92439- 1838 Nov, Headache around the eyes R51 [facility] [id number] [place] [address] 20361- 6927 Nov, [facility] [id number] [place] [address] 51907- 6522 October, STD exposure Z20.2 [facility] [id number] [place] [address] 63076- 2659 October, STD exposure Z20.2 [place] [id number] [place] [address] 94946- 0863 October, Chronic post-traumatic stress disorder (PTSD) F43.12 ; Generalized social phobia F40.11 ; Trichotillomania F63.3 and Restless leg syndrome G25.81 [facility] [id number] [place] [address] 10123- 8483 October, [place] [id number] [place] [address] 56980- 7538 Sep, [facility] [id number] [place] [address] 63655- 8420 Aug, [place] [id number] [place] [address] 62947- 6150 Aug, [facility] [id number] [place] [address] 38890- 1824 Aug, Neck mass R22.1 [place] [id number] [place] [address] 11376- 9123 Aug, Atelectasis J98.11 [place] [id number] [place] [address] 04700- 7992 28 Jul, 2016 Hyperlipidemia, mixed E78.2 ; Atypical pneumonia J18.9 and Neck mass R22.1 [place] [address] [place] [address] 11028- 0426 15 Jul, 2016 Hemoptysis R04.2 [place] [id number] [place] [address] 88206- 0389 08 Jul, 2016 Acute non-recurrent pansinusitis J01.40 ; Hemoptysis R04.2 ; Polydipsia R63.1 and Malaise R53.81 [facility] [id number] [place] [address] 73267 -4848 May, Other viral agents as the cause of diseases classified elsewhere B97.89 and Acute upper respiratory infection, unspecified J06.9 [facility] [place] [id number] [place] [address] 96673 -1662 Mar, Nausea R11.0 [facility] [place] [id number] [place] [address] 07621 -1647 Dec, Hives L50.9 [place] [address] 49089- 4502 Dec, [facility] [address] 28547 -3330 Dec, Cutaneous abscess of limb, unspecified L02.419 ; Cellulitis of unspecified part of limb L03.119 ; Encounter for incision and drainage procedure Z01.89 and Encounter for recheck of abscess following incision and drainage Z09 [facility] [place] [id number] [place] [address] 65962 -4636 Dec, Abscess of leg, right L02.415 [id number] [place] [address] 95580- 1710 Dec, Cellulitis of unspecified part of limb L03.119 and Cutaneous abscess of limb, unspecified L02.419 [place] [id number] [place] [address] 65176- 3175 Dec, [place] [id number] [place] [address] 48627- 3550 Dec, [facility] [place] [id number] [place] [address] 06358 -0078 Aug, [place] [id number] [place] [address] 57477- 7282 Aug, [facility] [place] [id number] [place] [address] 81534 -6442 Jul, Pain in unspecified wrist M25.539 and Back pain, thoracic M54.6 [facility] [address] [place] [address] 02190 -2185 Jun, Strain of right wrist, initial encounter S66.911A [facility] [address] [id number] [place] [address] [phone] [phone] 11 Jun, 2015 Chronic pancreatitis, unspecified pancreatitis type K86.1 ; Hirsuties L68.0 ; Morbid (severe) obesity due to excess calories E66.01 ; Chronic pancreatitis K86.1 and Asthma J45.909 [facility] [address] [place] [id number] [place] [address] [phone] May, [place] [address] [address]74- 4980 May, Hyperlipidemia, mixed E78.2 and Muscle spasm of back M62.830 [place] [address] 07328- 7869 Apr, [place] [address] [place] [id number] [place] [address] 07794- 4668 Apr, Torticollis M43.6 [facility] [address] [place] [place] [id number] [place] [address] [phone]- 2165 Apr, Right-sided thoracic back pain M54.6 [facility] [address] [place] [id number] [place] [address] [id number] 2371 Mar, Rash R21 [facility] [address] [place] [id number] [place] [address] [phone] [phone] Mar, [place] [address] [place] [id number] [place] [address] [phone] 2504 Jan, [facility] [address] 67427- [address]246 Dec, [facility] [address] [place] [id number] [place] [address] 74159- 7953 Dec, Urinary frequency 788.41 and Nocturia more than twice per night 788.43 [facility] [address], [place] [address] 457[address] Nov, [facility] [id number] [place] [address] 66697- 9562 Nov, [facility] [id number] [place] [address] 49119- 5220 Nov, Abdominal pain 789.00 [facility] [id number] [place] [address] 79136- 8362 October, TDAP DX V06.1 [facility] [id number] [place] [address] 08542- 6675 October, [facility] [id number] [place] [address] 92105- 8612 October, Disturbance of skin sensation 782.0 ; Wrist pain, right 719.43 ; Hyperlipidemia 272.4 and Skin lesion of face 709.9 [facility] [id number] [place] [address] 61377- 2690 Sep, [facility] [id number] [place] [address] 63356- 6531 Sep, [facility] [id number] [address] 4313 Aug, [facility] [address], [place] [address]- 4602 Aug, [facility] [address], [place] [address]- 7228 Aug, [facility] [id number] [place] [address] 13552- 6179 Aug, [facility] [id number], [place] [address]- 3553 Aug, [facility] [id number] [place] [address] 02009- 5338 Aug, [facility] [place] [facility] [address] [id number] [place] [address]- 9656 14 Aug, 2014 [facility] [place] [facility] [address] [id number] [place] [address]- 8368 14 Aug, 2014 [facility] [place] [facility] [address] [id number] [place] [address]- 1702 Aug, [facility] [place] [facility] [address] [id number] [place] [address]- 7300 Aug, [facility] [place] [facility] [address] [id number] [place] [address]- 4870 Aug, [facility] [place] [facility] [address] [id number] [place] [address]- 0753 Aug, [facility] [place] [facility] [address] [id number] [place] [address]- 9130 Aug, [facility] [place] [facility] [address] [id number] [place] [address]- 7462 Aug, [facility] [place] [facility] [address] [id number] [place] [address]- 7911 Jul, [facility] [place] [facility] [address] [id number] [place] [address]- 7108 Jul, 2014 [facility] [place] [facility] [address] [id number] [place] [address]- 6805 Jul, 2014 [facility] [place] [facility] [address] [id number] [place] [address]- 6159 Jul, 2014 [facility] [place] [facility] [address] [id number] [place] [address]- 0661 Jul, [facility] [place] [facility] [address] [id number] [place] [address]- 1985 Jul, [facility] [place] [facility] [address] [id number] [place] [address]- 2221 Jun, [facility] [place] [facility] [address] [id number] [place] [address]- 5041 Jun, [facility] [address] [id number] [place] [address]- 7371 Jun, [facility] [address] [id number] [place] [address]- 7044 Jun, [facility] [address] [id number] [place] [address]- 7406 Jun, [facility] [address] [id number] [place] [address]- 4664 Jun, [facility] [address] [id number] [place] [address]- 8805 Jun, [facility] [address] [id number] [place] [address]- 3313 Jun, [facility] [address] [id number] [place] [address]- 7899 May, [facility] [address] [id number] [place] [address]- 2142 May, [facility] [address] [id number] [place] [address]- 0474 18 May, 2014 [facility] [address] [id number] [place] [address]- 6752 18 May, 2014 [facility] [place] [facility] [address] [id number] [place] [address]- 3796 15 May, 2014 [facility] [address] [id number] [place] [address]- 8507 15 May, 2014 [facility] [place] [facility] [address] [id number] [place] [address]- 6498 May, [facility] [place] [facility] [address] [id number] [place] [address]- 7079 May, [facility] [place] [facility] [address] [id number] [place] [address]- 9356 May, [facility] [place] [facility] [address] [id number] [place] [address]- 6824 May, [facility] [place] [facility] [address] [id number] [place] [address]- 4226 May, [facility] [place] [facility] [address] [id number] [place] [address]- 0163 May, [facility] [place] [facility] [address] [id number] [place] [address]- 4304 Apr, [facility] [place] [facility] [address] [id number] [place] [address]- 0441 Apr, [facility] [place] [facility] [address] [id number] [place] [address]- 4374 Apr, [facility] [place] [facility] [address] [id number] [place] [address]- 2489 Apr, [facility] [place] [facility] [address] [id number] [place] [address]- 6489 Apr, [facility] [place] [facility] [address] [id number] [place] [address]- 6224 Apr, [facility] [place] [facility] [address] [id number] [place] [address]- 9731 Apr, [facility] [place] [facility] [address] [id number] [place] [address]- 1716 Apr, [facility] [place] [facility] [address] [id number], [place] [address]- 3438 Apr, [facility] [place] [facility] [address] [id number] [place] [address]- 9274 Apr, [facility] [place] [facility] [address] [id number] [place] [address]- 6011 Apr, [facility] [place] [facility] [address] [id number], [place] [address]- 9959 Apr, [facility] [place] [facility] [address] [id number], [place] [address]- 5742 Mar, [facility] [place] [facility] [address] [id number] [place] [address]- 5470 Mar, [facility] [place] [facility] [address] [id number] [place] [address]- 4787 Mar, [facility] [place] [facility] [address] [id number] [place] [address]- 0487 Mar, [facility] [place] [facility] [address] [id number] [place] [address]- 3013 Feb, [facility] [place] [facility] [address] [id number] [place] [address]- 1106 Feb, [facility] [place] [facility] [address] [id number] [place] [address]- 6149 05 Feb, 2014 [facility] [place] [facility] [address] [id number] [place] [address]- 8154 Feb, [facility] [place] [facility] [address] [id number] [place] [address]- 0181 Feb, [facility] [place] [facility] [address] [id number] [place] [address]- 2200 Feb, [facility] [place] [facility] [address] [id number] [place] [address]- 8349 Jan, [facility] [place] [facility] [address] [id number] [place] [address]- 9375 Jan, [facility] [place] [facility] [address] [id number] [place] [address]- 7358 Jan, [facility] [place] [facility] [address] [id number] [place] [address]- 9351 Jan, [facility] [place] [facility] [address] [id number] [place] [address]- 9577 Jan, [facility] [place] [facility] [address] [id number] [place] [address]- 5930 Jan, [facility] [place] [facility] [address] [id number] [place] [address]- 4923 Jan, 2013 [facility] [place] [facility] [address] [id number] [place] [address]- 8983 Jan, [facility] [place] [facility] [address] [id number] [place]24 Jan, [facility] [place] [facility] [address] [id number] [place] [address]- 0029 Jan, [facility] [place] [facility] [address] [id number] [place] [address]- 1914 Jan, [facility] [place] [facility] [address] [id number] [place] [address]- 6898 Jan, [facility] [place] [facility] [address] [id number] [place] [address]- 2742 Jan, [facility] [place] [facility] [address] [id number] [place] [address]- 8311 Jan, [facility] [place] [facility] [address] [id number] [place] [address]- 5025 Dec, [facility] [place] [facility] [address] [id number] [place] [address]- 0459 Dec, [facility] [place] [facility] [address] [id number] [place] [address]- 4767 Dec, [facility] [place] [facility] [address] [id number] [place] [address]- 5581 Dec, [facility] [place] [facility] [address] [id number] [place] [address]- 8901 Nov, [facility] [place] [facility] [address] [id number] [place] [address]- 5467 Nov, [facility] [place] [facility] [address] [id number] [place] [address]- 9334 Nov, [facility] [place] [facility] [address] [id number] [place] [address]- 6941 Nov, [facility] [place] [facility] [address] [id number] [place] [address]- 3757 Nov, [facility] [place] [facility] [address] [id number] [place] [address]- 5718 October, [facility] [place] [facility] [address] [id number] [place] [address]- 3587 October, [facility] [place] [facility] [address] [id number] [place] [address]- 6389 October, [facility] [place] [facility] [address] [id number] [place] [address]- 9800 October, [facility] [place] [facility] [address] [id number] [place] [address]- 0406 October, [facility] [place] [facility] [address] [id number] [place] [address]- 6197 October, [facility] [place] [facility] [address] [id number] [place] [address]- 2749 October, [facility] [place] [facility] [address] [id number] [place] [address]- 2920 October, [facility] [place] [facility] [address] [id number] [place] [address]- 7481 October, [facility] [place] [facility] [address] [id number] [place] [address]- 0017 October, [facility] [place] [facility] [address] [id number] [place] [address]- 6206 October, [facility] [place] [facility] [address] [id number] [place] [address]- 1404 October, [facility] [place] [facility] [address] [id number] [place] [address]- 5954 October, [facility] [place] [facility] [address] [id number] [place] [address]- 0495 October, [facility] [place] [facility] [address] [id number] [place] [address]- 6034 17 Sep, 2013 [facility] [place] [facility] [address] [id number] [place] [address]- 0531 17 Sep, 2013 [facility] [place] [facility] [address] [id number] [place] [address]- 3706 Sep, [facility] [place] [facility] [address] [id number] [place] [address]- 5708 Sep, [facility] [place] [facility] [address] [id number] [place] [address]- 6431 Sep, [facility] [place] [facility] [address] [id number] [place] [address]- 3852 Sep, [facility] [place] [facility] [address] [id number] [place] [address]- 1900 Sep, [facility] [place] [facility] [address] [id number] [place] [address]- 3375 Sep, [facility] [place] [facility] [address] [id number] [place] [address]- 3870 Sep, [facility] [place] [facility] [address] [id number] [place] [address]- 0839 Sep, [facility] [place] [facility] [address] [id number] [place] [address]- 5721 Sep, [facility] [place] [facility] [address] [id number] [place] [address]- 7579 Sep, [facility] [place] [facility] [address] [id number] [place] [address]- 6384 Sep, [facility] [place] [facility] [address] [id number] [place] [address]- 7852 Sep, [facility] [place] [facility] [address] [id number] [place] [address]- 9028 Sep, [facility] [place] [facility] [address] [id number] [place] [address]- 5688 Aug, [facility] [place] [facility] [address] [id number] [place] [address]- 3870 Aug, [facility] [place] [facility] [address] [id number] [place] [address]- 4178 Aug, [facility] [place] [facility] [address] [id number] [place] [address]- 8333 Aug, [facility] [place] [facility] [address] [id number] [place] [address]- 2713 Jul, [facility] [place] [facility] [address] [id number] [place] [address]- 1739 Jul, [facility] [place] [facility] [address] [id number] [place] [address]- 6927 Jul, [facility] [place] [facility] [address] [id number] [place] [address]- 6280 Jul, [facility] [place] [facility] [address] [id number] [place] [address]- 6478 Jun, [facility] [place] [facility] [address] [id number] [place] [address]- 0229 Jun, [facility] [place] [facility] [address] [id number] [place] [address]- 1841 Jun, [facility] [place] [facility] [address] [id number] [place] [address]- 8658 Jun, [facility] [place] [facility] [address] [id number] [place] [address]- 6209 Jun, [facility] [place] [facility] [address] [id number] [place] [address]- 2675 Jun, [facility] [place] [facility] [address] [id number] [place] [address]- 5920 Jun, [facility] [place] [facility] [address] [id number] [place] [address]- 3116 Jun, [facility] [place] [facility] [address] [id number], [place] [address]- 1642 20 May, 2013 [facility] [address] [id number] [place] [address]- 6663 20 May, 2013 [facility] [address] [id number] [place] 7275 18 May, 2013 [facility] [address] [id number] [place] 2919 18 May, 2013 [facility] [address] [id number] [place] [address]- 4103 17 May, 2013 [facility] [place] [facility] [address] [id number] [place] [id number] 17 May, 2013 [facility] [address] [id number] [place] [address]- 3728 17 May, 2013 [facility] [address] [id number] [place] [address]- 0029 17 May, 2013 [facility] [address] [id number] [place] [address]- 4438 16 May, 2013 [facility] [address] [id number] [place] [address]- 0734 16 May, 2013 [facility] [address] [id number] [place] [address]- 2400 14 May, 2013 [facility] [address] [id number] [place] [address]- 9253 14 May, 2013 [facility] [address] [id number] [place] [address]- 4265 13 May, 2013 [facility] [address] [id number] [place] [address]- 6370 13 May, 2013 [facility] [place] [facility] [address] [id number] [place] 3731 12 May, 2013 [facility] [address] [id number] [place] [address]- 9837 12 May, 2013 [facility] [place] [facility] [address] [id number] [place] [address]- 5139 May, [facility] [address] [id number] [place] [address]- 6156 May, [facility] [address] [id number] [place] [address]- 4705 Apr, [facility] [address] [id number] [place] [address]- 6774 Apr, [facility] [address] [id number] [place] [address]- 5203 Apr, [facility] [address] [id number] [place] [address]- 8545 Apr, [facility] [address] [id number] [place] [address]- 4062 Aug, [facility] [address] [id number] [place] [address]- 5999 Aug, [facility] [address] [id number] [place] [address]- 5975 Aug, [facility] [address] [id number] [place] [address]- 1784 Aug, [facility] [address] [id number] [place] [address]- 7015 Jul, [facility] [address] [id number] [place] [address]- 6139 Jun, [facility] [address] [id number] [place] [address]- 6600 Jun, [facility] [address] [id number] [place] [address]- 2546 Jun, [facility] [address] [id number] [place] [address]- 2546 Jun, [facility] [address] [id number] [place] [address]- 6960 May, [facility] [place] [facility] [address] [id number] [place] [address]- 6202 May, [facility] [place] [facility] [address] [id number] [place] [address]- 3801 May, [facility] [place] [facility] [address] [id number] [place] 5984 May, [facility] [place] [facility] [address] [id number] [place] [address]- 6138 May, [facility] [place] [facility] [address] [id number] [place] [address]- 8153 May, [facility] [place] [facility] [address] [id number] [place] [address]- 5461 May, [facility] [place] [facility] [address] [facility] [id number] [place] [address]- 3652 Apr, [facility] [place] [facility] [address] [id number], [place] [address]- 1674 Apr, [facility] [place] [facility] [address] [id number] [place] [address]- 0750 Apr, [facility] [place] [facility] [address] [facility] [id number], [place] [address]- 8035 Apr, [facility] [place] [facility] [address] [id number], [place] [address]- 5060 Apr, [facility] [place] [facility] [address] [id number], [place] [address]- 6285 Apr, [facility] [place] [facility] [address] [id number], [place] [address]- 7589 Apr, [facility] [place] [facility] [address] [id number], [place] [address]- 9678 Mar, [facility] [place] [facility] [address] [id number], [place] [address]- 6031 Mar, [facility] [place] [facility] [address] [id number] [place] [address]- 0324 19 Mar, 2012 [facility] [place] [facility] [address] [id number] [place] [address]- 0846 Mar, 2011 [facility] [place] [facility] [address] [id number] [place] [address] Mar, [facility] [place] [facility] [address] [id number] [place] [address] Mar, [facility] [place] [facility] [address] [id number] [place] [address] Mar, [facility] [place] [facility] [address] [id number] [place] [address] Mar, [facility] [place] [facility] [address] [id number] [place] [address] Mar, [facility] [place] [facility] [address] [id number] [place] [address] Mar, [facility] [place] [facility] [address] [id number] [place] [address] Mar, [facility] [place] [facility] [address] [id number] [place] [address]32 Mar, [facility] [place] [facility] [address] [facility] [id number] [place] [address] Feb, [facility] [place] [facility] [address] [id number] [place] [address] Jan, [facility] [place] [facility] [address] [id number] [place] [address] Jan, [facility] [place] [facility] [address] [id number] [place] [address] Jan, [facility] [place] [facility] [address] [id number] [place] [address] 9087 Jan, [facility] [place] [facility] [address] [facility] [id number] [place] [address]- [address] Jan, [facility] [place] [facility] [address] [id number] [place] [address] 39[address] Dec, [facility] [place] [facility] [address] [id number] [place] [address] Dec, [facility] [place] [facility] [address] [id number] [place] [address] Nov, [facility] [place] [facility] [address] [id number] [place] [address]- [address] Nov, [facility] [place] [facility] [address] [id number] [place] [address]- [address]49 Nov, [facility] [place] [facility] [address] [id number] [place] [address] October, [facility] [address] [id number] [place] [address] October, [facility] [address] [id number] [place] [address]245 October, [facility] [address] [id number] [place] [address]- 8458 October, [facility] [place] [facility] [address] [id number] [place] [address] October, [facility] [place] [facility] [address] [id number] [place] [address]- 1842 October, [facility] [place] [facility] [address] [id number] [place] [address]- 9186 October, [facility] [place] [facility] [address] [id number] [place] [address]- 7968 Sep, [facility] [place] [facility] [address] [id number] [place] [address]- 6[address] Sep, [facility] [place] [facility] [address] [id number] [place] [address]- [address] Sep, [facility] [place] [facility] [address] [id number] [place] [address]- [address]40 25 Sep, 2011 [facility] [place] [facility] [address] [id number] [place] [address]- [address]323 24 Sep, 2011 [facility] [place] [facility] [address] [id number] [place] [address]- 1259 19 Sep, 2011 [facility] [place] [facility] [address] [id number] [place] [address]- [address]156 17 Sep, 2011 [facility] [place] [facility] [address] [id number] [place] [address]- 2867 16 Sep, 2011 [facility] [place] [facility] [address] [id number] [place] [address]- [address]384 16 Sep, 2011 [facility] [place] [facility] [address] [id number] [place] [address]- [address]776 14 Sep, 2011 [facility] [place] [facility] [address] [id number] [place] [address]- 1110 13 Sep, 2011 [facility] [place] [facility] [address] [id number] [place] [address]- [address]154 10 Sep, 2011 [facility] [place] [facility] [address] [id number] [place] [address]- 5673 09 Sep, 2011 [facility] [place] [facility] [address] [id number] [place] [address]- [address]555 27 Aug, 2011 [facility] [place] [facility] [address] [id number] [place] [address]- [address]357 12 Aug, 2011 [facility] [place] [facility] [address] [id number] [place] [address]- [address]991 08 Aug, 2011 [facility] [place] [facility] [address] [id number] [place] [address]- 1653 06 Aug, 2011 [facility] [place] [facility] [address] [id number] [place] [address]- 1677 28 Jul, 2011 [facility] [place] [facility] [address] [id number] [place] [address]- [address]338 Jul, [facility] [place] [facility] [address] [id number] [place] [address]- 4514 16 Jul, 2011 [facility] [address] [id number] [place] [address]- [address]756 15 Jul, 2011 [facility] [place] [facility] [address] [id number] [place] [address]- 5426 14 Jul, 2011 [facility] [place] [facility] [address] [id number] [place] [address]- 1846 10 Jul, 2011 [facility] [place] [facility] [address] [id number] [place] [address]- 5629 30 Jun, 2011 [facility] [place] [facility] [address] [id number] [place] [address]- 4328 05 Jun, 2011 [facility] [address] [id number] [place] [address]- 6[address] Jun, [facility] [address] [id number] [place] [address]- 9955 Jun, [facility] [address] [id number] [place] [address]- [address]328 Jun, [facility] [address] [id number] [place] [address] May, [facility] [address] [id number] [place] [address]- 1760 May, [facility] [place] [facility] [address] [id number] [place] [address]- 2606 14 May, 2011 [facility] [place] [facility] [address] [id number] [place] [address] 2544 14 May, 2011 [facility] [place] [facility] [address] [id number] [place] [address]- 5486 12 May, 2011 [facility] [place] [facility] [address] [id number] [place] [address] 2546 07 May, 2011 [facility] [place] [facility] [address] [id number] [place] [address]- 1428 May, [facility] [place] [facility] [address] [id number] [place] [address]- 7995 Apr, [facility] [place] [facility] [address] [id number] [place] [address]- 6024 Apr, [facility] [place] [facility] [address] [id number] [place] [address] Apr, [facility] [place] [facility] [address] [id number] [place] [address]- 7925 Apr, [facility] [place] [facility] [address] [id number] [place] [address]- 4106 Apr, [facility] [place] [facility] [address] [id number] [place] [address] Apr, [facility] [place] [facility] [address] [id number] [place] [address] Mar, [facility] [place] [facility] [address] [id number] [place] [address] Mar, [facility] [place] [facility] [address] [id number] [place] [address] Mar, [facility] [place] [facility] [address] [id number] [place] [address] Mar, [facility] [place] [facility] [address] [id number], [place] [address] Jan, [facility] [place] [facility] [address] [id number], [place] [address] Dec, [facility] [place] [facility] [address] [id number] [place] [address] Dec, [facility] [place] [facility] [address] [id number], [place] [address] October, [facility] [place] [facility] [address] [id number] [place] [address] Sep, [facility] [place] [facility] [address] [id number] [place] [address] 14 Sep, 2010 [facility] [address] [id number] [place] [address] 17 Jul, 2010 [facility] [address] [id number] [place] [address] 16 Jul, 2010 [facility] [address] [id number] [place] [address] 31 May, 2010 [facility] [place] [facility] [address] [id number] [place] [address] 27 May, 2010 [facility] [address] [id number] [place] [address], [place] [address] 08 May, 2010 [facility] [address] [id number] [place] [address] 06 May, 2010 [facility] [address] [id number] [place] [address] Apr, [facility] [address] [id number] [place] [address] Apr, [facility] [address] [id number] [place] [address] Apr, [facility] [address] [facility] [id number] [place] [address] 18 Apr, 2010 [facility] [place] [facility] [address] [id number] [place] [address] Apr, [facility] [place] [facility] [address] [id number] [place] [address] 21 Mar, 2010 [facility] [place] [facility] [address] [id number] [place] [address] 14 Mar, 2010 [facility] [place] [facility] [address] [id number] [place] [address] 13 Mar, 2010 [facility] [place] [facility] [address] [id number] [place] [address] Mar, [facility] [address] [facility] [id number], [place] [address] Jan, [facility] [address] [facility] [id number][place] [address] [address] Dec, [facility] [id number] [address] Sep, [facility] [id number], [place] [address] May, [facility] [address] [facility] [id number][place] [address] May, [facility] [id number] [address] [address] May, [facility] [id number], [place] [address] Apr, [facility] [id number], [place] [address] Apr, [facility] [id number], [place] [address] Apr, [facility] [address] [id number], [place] [address] Apr, [facility] [address], [place] [address] Apr, [facility] [address] [id number], [place] [address] Mar, [facility] [address] [id number], [place] [address] Mar, [facility] [address] [id number], [place] [address] Jul, IMMUNIZATIONS No Known Immunizations SOCIAL HISTORY Never Assessed REASON FOR VISIT EMR-[facility] PLAN OF CARE VITAL SIGNS MEDICATIONS Unknown [...] [facility] 12[facility]15 Hospitalization History [facility]- Abd pain 03/07/2017 Hospitalization History [facility]- Abd pain 03/14/2017 Hospitalization History [facility]- No bowel movement, rash 04/13/2017 Hospitalization History [facility]- Abd pain r/t kidney surgery on 04/17/2017 Hospitalization History [facility]- Abd pain r/t kidney surgery on 04/18/2017 Hospitalization History [facility]- Lower abd pain 04/30/2017 Hospitalization History [facility]- Cannot urinate 05/30/2017 Hospitalization History [facility]- Pancreatitis Sx 06/29/2017 Hospitalization History [facility]- Stomach pain 07/22/2017 Hospitalization History [facility]- Left side pain 08/12/2017 Hospitalization History [facility]- Incision site infection 08/30/2017 Hospitalization History [facility]- Post Op Seroma/Hematoma Left Abdomen. Discharged 09/04/17- Dr Daniel 09/02/2017 Hospitalization [facility]- Right shoulder and back pain 2017 Hospitalization History [facility]- Shoulder/Back pain 11/11/2017 Hospitalization History [facility]- Right shoulder blade pain 12/04/2017 Hospitalization History [facility]- C-Diff 12/13/2017 Hospitalization History C diff et MRSA 12/27/2017
--- OUTSIDE RECORDS SUMMARY | 2018-10-27 13:06 | XMS REPORT ---
Author Author Migration, Doctor Organization [facility] Address Unknown Phone Unavailable Care Team Providers Care Undraped Artist Model Name Role Phone Migration, Doctor Unavailable Unavailable PROBLEMS Type Condition ICD9-CM Code GSC91-IO Code Onset Dates Condition Status SNOMED Code Problem Chronic tension-type headache, intractable G44.221 Active 505097008 Problem Right carpal tunnel syndrome G56.01 Active 080577112856994 Problem Hyperlipidemia, mixed E78.2 Active 867850843 Problem Morbid (severe) obesity due to excess calories E66.01 Active 632991455 Problem FH: polycystic ovary Z84.2 Active 987353842 Problem Hirsuties L68.0 Active 486804148 Problem Asthma J45.909 Active 921172049 Problem Chronic pancreatitis K86.1 Active 625689461 Problem Trichotillomania F63.3 Active 34337459 Problem Restless leg syndrome G25.81 Active 29623160 Problem Generalized social phobia F40.11 Active 34025749 Problem Primary osteoarthritis of right knee M17.11 Active 145446102842126 Problem Atelectasis J98.11 Active 46522750 Problem History of renal cell carcinoma Z85.528 Active 565826413 Problem Obesities, morbid E66.01 Active 612786112 Problem Polydipsia R63.1 Active 93130018 Problem Nodule of left lung R91.1 Active 881385298 Problem Chronic post-traumatic stress disorder (PTSD) F43.12 Active 225991145 Problem Moderate episode of recurrent major depressive disorder F33.1 Active 215542599 Problem Chronic fatigue R53.82 Active 47555555 Problem Intestinal malabsorption, unspecified K90.9 Active 28079510 ALLERGIES No Information ENCOUNTERS Encounter Location Date Diagnosis [facility] [id number], [place] [address] October, [facility] [address] [facility] [id number], [place] [address] October, [facility] [address], [place] [address] October, [facility] [address] [place] [address] Sep, [facility] [address] [facility] [id number], [place] [address] Sep, [facility] [address], [place] [address] Sep, [facility] [id number] [place] [address] 05647- 3736 Sep, [facility] [id number] [place] [address] 99739- 0012 Sep, Lower extremity edema R60.0 [facility] [address], [place] [address] Sep, [facility] [id number] [place] [address] 19352 -7592 Sep, Lower extremity edema R60.0 and Morbid obesity E66.01 [facility] [address], [place] [address] Sep, [facility] [id number] [place] [address] 14559- 4620 Sep, [facility] [address], [place] [address] Aug, [facility] [address], [place] [address] Aug, Obesities, morbid E66.01 and Morbid obesity E66.01 [facility] [address], [place] [address] Aug, [facility] [address] [address] Jul, [facility] [address], [place] [address] 8[address] Jul, [facility] [id number] [place] [address] 26361- 6299 Jul, [facility] [id number] [place] [address] 22898- 7410 Jul, Numbness of right hand R20.0 [facility] [id number] [place] [address] 46439- 3051 Jul, [facility] [id number] [place] [address] 07366- 6730 Jul, Numbness of right hand R20.0 [facility] [id number] [place] [address] 69837- 4965 Jul, [facility] [id number] [place] [address] 68791- 9011 Jul, [facility] [id number] [place] [address] 14456- 8201 Jul, Right-sided thoracic back pain M54.6 [facility] [id number] [place] [address] 03807- 3123 Jul, [facility] [id number] [place] [address] 84413- 7846 Jul, [facility] [id number] [place] [address] 26886- 2722 Jul, [facility] [id number] [place] [address] 18090- 5065 Jul, [facility] [id number] [place] [address] 00645- 2692 Jun, [facility] [id number] [place] [address] 10304- 1619 Jun, Acute pain of right shoulder M25.511 ; Numbness of right hand R20.0 and Trapezius muscle spasm M62.838 [facility] [id number] [place] [address] 96088- 3804 Jun, [facility] [id number] [place] [address] 15672- 5239 Jun, [facility] [id number] [place] [address] 79637- 6228 Jun, Cough R05 ; BMI 50.0-59.9, adult Z68.43 and Morbid obesity E66.01 [facility] [address] [address]- 5868 Jun, [facility] [id number] [place] [address] 44063- 2492 Jun, [facility] [id number] [place] [address] 62656 -0381 Jun, BMI 45.0-49.9, adult Z68.42 and Acute non-recurrent maxillary sinusitis J01.00 [facility] [id number] [place] [address] 81644 -1650 Jun, Acute sinusitis J01.90 ; Dysuria R30.0 and BMI 45.0-49.9, adult Z68.42 [facility] [id number] [place] [address] 99605- 1193 Jun, [facility] [id number] [place] [address] 70064- 1067 Jun, [facility] [id number] [place] [address] 29189- 9173 May, [facility] [id number] [place] [address] 10921- 2594 May, [facility] [id number] [place] [address] 03277- 6870 May, [facility] [id number] [place] [address] 61141- 7912 May, [facility] [address] 48162- 0044 May, [address] [id number] [place] [address] 18200- 0681 Apr, Generalized social phobia F40.11 ; Trichotillomania F63.3 ; Chronic post-traumatic stress disorder (PTSD) F43.12 and BMI 45.0-49.9, adult Z68.42 [address] [address] 11968- 7926 Apr, [place] [address] 24196- 3306 Apr, Chronic tension-type headache, intractable G44.221 [address] [place] [address] 14528- 2739 Apr, [facility] [address] [place] [address] 84191 -3508 Mar, [facility] [address] 00659 -0846 Mar, BMI 45.0-49.9, adult Z68.42 and Pimples R23.8 [id number] [place] [address] 10434- 6409 Mar, [place] [id number] [place] [address] 86693- 2428 Mar, [place] [id number] [place] [address] 45960- 1884 Mar, Decreased urination R34 ; Chronic fatigue R53.82 ; Peripheral edema R60.9 ; Diarrhea, unspecified type R19.7 ; Non-intractable vomiting with nausea, unspecified vomiting type R11.2 ; BMI 45.0-49.9, adult Z68.42 and Chronic post-traumatic stress disorder (PTSD) F43.12 [address] [place] [id number] [place] [address] 06173- 2812 Mar, Intestinal malabsorption, unspecified K90.9 ; Diarrhea, unspecified R19.7 ; Urinary urgency R39.15 ; Rectal bleeding K62.5 and Decreased urine output R34 [facility] [id number] [place] [address] 97913- 3657 Mar, Decreased urine output R34 [facility] [id number] [place] [address] 30280- 6109 Mar, Rectal bleeding K62.5 [facility] [address] 20109- 7772 Mar, Rectal bleeding K62.5 [facility] [id number] [place] [address] 89159- 5539 Mar, Urinary urgency R39.15 [facility] [id number] [place] [address] 90653- 4898 Mar, Urinary urgency R39.15 [address] [place] [id number] [place] [address] 69731- 7599 Mar, Primary osteoarthritis of right knee M17.11 and BMI 45.0- 49.9, adult Z68.42 [address] [id number] [place] [address] 29032- 7490 Mar, [facility] [id number] [place] [address] 95975- 0936 Feb, Left upper arm pain M79.622 [facility] [id number] [place] [address] 56431- 8801 Feb, [facility] [id number] [place] [address] 03003- 4736 Jan, Acute pain of right knee M25.561 ; Right upper quadrant abdominal pain R10.11 and BMI 45.0-49.9, adult Z68.42 [facility] [id number] [place] [address] 23239- 3624 Jan, [facility] [id number] [place] [address] 82953- 9422 Jan, [facility] [address], [place] [address]- 1307 Dec, [facility] [id number] [place] [address] 95551- 1942 Dec, Intestinal malabsorption, unspecified K90.9 and Diarrhea, unspecified R19.7 [facility] [id number] [place] [address] 59244- 4562 Dec, [facility] [id number] [place] [address] 79260- 4941 Dec, Strep throat J02.0 ; Intestinal malabsorption, unspecified K90.9 ; Diarrhea, unspecified R19.7 ; Postoperative seroma involving digestive system after non-digestive system procedure K91.873 ; Hyperlipidemia, mixed E78.2 and BMI 45.0-49.9, adult Z68.42 [facility] [id number] [place] [address] 82498- 9824 Dec, [facility] [id number] [place] [address] 80308- 3789 Dec, Nausea R11.0 [facility] [id number] [place] [address] 68863- 5009 Dec, [facility] [address], [place] [address]2603 Dec, Sore throat J02.9 ; Strep throat J02.0 and BMI 45.0-49.9, adult Z68.42 [facility] [address], [place] [address]- 8451 Dec, [facility] [id number] [place] [address] 65466- 9050 Dec, [facility] [address], [place] [address]- 2615 Dec, [facility] [id number] [place] [address] 99837- 7917 Dec, [facility] [address], [place] [address]- 4828 Dec, [facility] [id number] [place] [address] 66192- 8094 Dec, [facility] [id number] [place] [address] 54396- 3733 Dec, [facility] [id number] [place] [address] 17874- 2897 Dec, [facility] [id number] [place] [address] 80951- 3794 Dec, Clostridium difficile colitis A04.72 ; Intractable vomiting with nausea, unspecified vomiting type R11.2 and BMI 45.0-49.9, adult Z68.42 [facility] [id number] [place] [address] 27362- 0850 Dec, [facility] [id number], [place] [address]- 0607 Nov, [facility] [id number] [place] [address] 21128- 6356 Nov, [facility] [id number] [place] [address] 49810- 9556 Nov, [facility] [id number] [place] [address] 16092- 4641 Nov, [facility] [address], [place] [address]8349 Nov, [facility] [id number] [place] [address] 39014- 2355 Nov, Hyperlipidemia, mixed E78.[address] [facility] [address], [place] [address] Nov, Acute suppurative otitis media of right ear without spontaneous rupture of tympanic membrane, recurrence not specified H66.001 and BMI 45.0-49.9, adult Z68.42 [address] [address], [place] [address]- 0726 Nov, Hyperlipidemia, mixed E78.2 [address] [address] [place] [address] 58412- 5571 Nov, [place] [id number] [place] [address] 00797- 1345 Nov, [address] [id number] [place] [address] 66057- 8298 Nov, Nodule of left lung R91.1 [id number] [place] [address] 62650- 0517 Nov, Medicare annual wellness visit, initial Z00.00 [...] adult Z68.42 and Encounter for immunization Z23 [address] [address] [place] [address] 44238- 1225 October, [address] [place] [address] [place] [address] 84052- 0899 October, Nodule of left lung R91.1 [place] [id number] [place] [address] 20037- 7590 October, Nodule of left lung R91.1 [address] [place] [address] [place] [address] 62332- 6967 October, Recurrent major depressive disorder, in partial remission F33.41 ; Restless leg syndrome G25.81 ; Generalized social phobia F40.11 ; Chronic post-traumatic stress disorder (PTSD) F43.12 ; BMI 45.0-49.9, adult Z68.42 and Trichotillomania F63.3 [address] [id number] [place] [address] 02695- 4909 October, [facility] [id number] [place] [address] 59355- 3690 Sep, Chronic fatigue R53.82 and BMI 45.0-49.9, adult Z68.42 [place] [id number] [place] [address] 39352- 4322 Aug, [place] [id number] [place] [address] 24107- 1667 Jul, Restless leg syndrome G25.81 and B12 deficiency E53.8 [place] [address] 80899- 3163 Jul, [place] [address] 84261- 8465 Jul, [place] [id number] [place] [address] 68190- 3346 Jun, [place] [id number] [place] [address] 97963- 5535 Jun, Fatigue, unspecified type R53.83 ; History of renal cell carcinoma Z85.528 ; Chronic pancreatitis K86.1 ; Restless leg syndrome G25.81 ; Dark urine R82.99 and BMI 45.0-49.9, adult Z68.42 [place] [id number] [place] [address] 52595- 4665 Jun, [place] [address] 27309- 5096 Jun, [facility] [id number] [place] [address] 65733- 7816 Jun, [place] [id number] [place] [address] 08000- 1265 Jun, [place] [address], [place] [address]- 0242 May, Chronic post-traumatic stress disorder (PTSD) F43.12 ; Moderate episode of recurrent major depressive disorder F33.1 ; Trichotillomania F63.3 and Generalized social phobia F40.11 [place] [id number] [place] [address] 60424- 5841 May, [place] [id number] [place] [address] 37726- 6007 May, Chronic post-traumatic stress disorder (PTSD) F43.12 ; Moderate episode of recurrent major depressive disorder F33.1 ; Trichotillomania F63.3 and Generalized social phobia F40.11 [place] [address] [place] [address] 61381- 2319 May, Hyperlipidemia, mixed E78.2 ; Morbid (severe) obesity due to excess calories E66.01 ; Chronic post-traumatic stress disorder (PTSD) F43.12 ; Moderate episode of recurrent major depressive disorder F33.1 ; Trichotillomania F63.3 and Generalized social phobia F40.11 [place] [address] [place] [address] 41193- 9891 Apr, [place] [address] [place] [address] 13727- 9279 Apr, Hyperlipidemia, mixed E78.2 ; Morbid (severe) obesity due to excess calories E66.01 ; Chronic post-traumatic stress disorder (PTSD) F43.12 ; Moderate episode of recurrent major depressive disorder F33.1 ; Trichotillomania F63.3 and Generalized social phobia F40.11 [place] [id number] [place] [address] 47508- 6219 Apr, Trichotillomania F63.3 ; Generalized social phobia F40.11 ; Chronic post-traumatic stress disorder (PTSD) F43.12 and Moderate episode of recurrent major depressive disorder F33.1 [place] [id number] [place] [address] 16845- 5435 Apr, [facility] [id number] [place] [address] 41857- 9555 Apr, [facility] [id number] [place] [address] 02704- 2731 Mar, Moderate episode of recurrent major depressive disorder F33.1 ; Trichotillomania F63.3 ; Chronic post-traumatic stress disorder (PTSD) F43.12 ; Generalized social phobia F40.11 and Restless leg syndrome G25.81 [facility] [id number] [place] [address] 03793- 6494 Mar, [facility] [id number] [place] [address] 27772- 0541 Mar, [place] [id number] [place] [address] 49757- 6115 Feb, Left kidney mass N28.89 [facility] [id number] [place] [address] 86416- 2069 Jan, [facility] [id number] [place] [address] 97019- 3567 Dec, Polydipsia R63.1 ; Chronic pancreatitis K86.1 and Fatigue, unspecified type R53.83 [place] [id number] [place] [address] 18513- 7051 Nov, [facility] [id number] [place] [address] 18246- 7536 Nov, [facility] [id number] [place] [address] 19548- 5233 Nov, Headache around the eyes R51 [facility] [id number] [place] [address] 84428- 5353 Nov, [facility] [id number] [place] [address] 07850- 8775 October, STD exposure Z20.2 [facility] [id number] [place] [address] 98237- 6921 October, STD exposure Z20.2 [place] [id number] [place] [address] 13786- 2376 October, Chronic post-traumatic stress disorder (PTSD) F43.12 ; Generalized social phobia F40.11 ; Trichotillomania F63.3 and Restless leg syndrome G25.81 [facility] [id number] [place] [address] 00355- 8901 October, [place] [id number] [place] [address] 47775- 2870 Sep, [facility] [id number] [place] [address] 73437- 6707 Aug, [place] [id number] [place] [address] 75192- 5956 Aug, [facility] [id number] [place] [address] 25116- 1204 Aug, Neck mass R22.1 [place] [id number] [place] [address] 39797- 8357 Aug, Atelectasis J98.11 [place] [address] [id number] [place] [address] 66954- 6098 28 Jul, 2016 Hyperlipidemia, mixed E78.2 ; Atypical pneumonia J18.9 and Neck mass R22.1 [place] [id number] [place] [address] 68710- 1018 15 Jul, 2016 Hemoptysis R04.2 [place] [address] [id number] [place] [address] 94913- 8221 08 Jul, 2016 Acute non-recurrent pansinusitis J01.40 ; Hemoptysis R04.2 ; Polydipsia R63.1 and Malaise R53.[address] [facility] [id number] [place] [address] [phone] -4270 May, Other viral agents as the cause of diseases classified elsewhere B97.89 and Acute upper respiratory infection, unspecified J06.9 [facility] WALK IN [place] [id number] [place] [address] [phone] -2904 Mar, Nausea R11.0 [facility] W[facility] IN [place] [id number] [place] [address] [phone] -3211 Dec, Hives L50.9 [place] [address] 39209- 5074 Dec, [facility] WALK IN [address] [address] Dec, Cutaneous abscess of limb, unspecified L02.419 ; Cellulitis of unspecified part of limb L03.119 ; Encounter for incision and drainage procedure Z01.89 and Encounter for recheck of abscess following incision and drainage Z09 [facility] WALK IN [place] [id number] [place] [address] [id number] -0056 Dec, Abscess of leg, right L02.415 [place] [id number] [place] [address] 33944- 4831 Dec, Cellulitis of unspecified part of limb L03.119 and Cutaneous abscess of limb, unspecified L02.419 [place] [id number] [place] [address] 81433- 2989 Dec, [place] [address] [id number] [place] [address] 72866- 9467 Dec, [facility] IN [place] [address] [id number] [place] [address] [phone] -6595 Aug, [place] [address] [id number] [place] [address] 10490- 9450 Aug, [facility] WALK IN [place] [address] [id number] [place] [address] 25426 -2760 Jul, Pain in unspecified wrist M25.539 and Back pain, thoracic M54.6 [facility] [id number] [place] [address] 22913 -6495 Jun, Strain of right wrist, initial encounter S66.911A [facility] [id number] [place] [address] 89656- 0594 11 Jun, 2015 Chronic pancreatitis, unspecified pancreatitis type K86.1 ; Hirsuties L68.0 ; Morbid (severe) obesity due to excess calories E66.01 ; Chronic pancreatitis K86.1 and Asthma J45.909 [facility] [id number] [place] [address] 24165- 7244 May, [place] [address] [address] [address] May, Hyperlipidemia, mixed E78.2 and Muscle spasm of back M62.830 [place] [address] [address]- 8[address] Apr, [place] [address] [place] [id number] [place] [address] 8[address]30- 1170 Apr, Torticollis M43.6 [facility] [id number] [place] [address] 08062- 2948 Apr, Right-sided thoracic back pain M54.6 [facility] [id number] [place] [address] 53276- 9590 Mar, Rash R21 [facility] [id number] [place] [address] 95780- 0019 Mar, [place] [address] [id number] [place] [address] 73929- 4598 Jan, [facility] [address] [address]- 3101 Dec, [facility] [id number] [place] [address] 39930- 6539 Dec, Urinary frequency 788.41 and Nocturia more than twice per night 788.43 [facility] [id number] [address] 45[address] Nov, [facility] [id number] [place] [address] 56659- 6732 Nov, [facility] [id number] [place] [address] 42838- 7164 Nov, Abdominal pain 789.00 [facility] [id number] [place] [address] 48411- 7885 October, TDAP DX V06.1 [facility] [id number] [place] [address] 42679- 2780 October, [facility] [id number] [place] [address] 15337- 3439 October, Disturbance of skin sensation 782.0 ; Wrist pain, right 719.43 ; Hyperlipidemia 272.4 and Skin lesion of face 709.9 [facility] [id number] [place] [address] 40791- 8358 Sep, [facility] [id number] [place] [address] 11218- 9983 Sep, [facility] [address] [id number] [address] 7221 Aug, [facility] [address], [place] [address]- 5437 Aug, [facility] [address], [place] [address]- 1242 Aug, [facility] [id number] [place] [address] 92307- 5526 Aug, [facility] [address] [id number] [address]- 2571 Aug, [facility] [id number] [place] [address] 02221- 1897 Aug, [facility] [place] [facility] [address] [id number] [place] [address]- 5838 14 Aug, 2014 [facility] [place] [facility] [address] [id number] [place] [address]- 0728 14 Aug, 2014 [facility] [place] [facility] [address] [id number] [place] [address]- 6954 Aug, [facility] [place] [facility] [address] [id number] [place] [address]- 0944 Aug, [facility] [place] [facility] [address] [id number] [place] [address]- 0972 Aug, [facility] [place] [facility] [address] [id number] [place] [address]- 1539 Aug, [facility] [place] [facility] [address] [id number] [place] [address]- 8515 Aug, [facility] [place] [facility] [address] [id number] [place] [address]- 9203 Aug, [facility] [place] [facility] [address] [id number] [place] [address]- 2548 Jul, [facility] [place] [facility] [address] [id number] [place] [address]- 2150 Jul, 2014 [facility] [place] [facility] [address] [id number] [place] [address]- 4942 Jul, 2014 [facility] [place] [facility] [address] [id number] [place] [address]- 1689 Jul, 2014 [facility] [place] [facility] [address] [id number] [place] [address]- 7525 Jul, [facility] [place] [facility] [address] [id number] [place] [address]- 6891 Jul, [facility] [place] [facility] [address] [id number] [place] [address]- 4099 Jun, [facility] [place] [facility] [address] [id number] [place] [address]- 7495 Jun, [facility] [address] [id number] [place] [address]- 6462 Jun, [facility] [place] [facility] [address] [id number] [place] [address]- 2141 Jun, [facility] [address] [id number] [place] [address]- 4149 Jun, [facility] [place] [facility] [address] [id number] [place] [address]- 2264 Jun, [facility] [address] [id number] [place] [address]- 9199 Jun, [facility] [address] [id number] [place] [address]- 6891 Jun, [facility] [address] [id number] [place] [address]- 6023 May, [facility] [address] [id number] [place] [address]- 7634 May, [facility] [address] [id number] [place] [address]- 9346 18 May, 2014 [facility] [address] [id number] [place] [address]- 5510 18 May, 2014 [facility] [place] [facility] [address] [id number] [place] [address]- 2123 15 May, 2014 [facility] [address] [id number] [place] [address]- 1462 15 May, 2014 [facility] [place] [facility] [address] [id number] [place] [address]- 8762 May, [facility] [place] [facility] [address] [id number] [place] [address]- 8725 May, [facility] [place] [facility] [address] [id number] [place] [address]- 5552 May, [facility] [place] [facility] [address] [id number] [place] [address]- 1774 May, [facility] [place] [facility] [address] [id number] [place] [address]- 8245 May, [facility] [place] [facility] [address] [id number] [place] [address]- 8716 May, [facility] [place] [facility] [address] [id number] [place] [address]- 7951 Apr, [facility] [place] [facility] [address] [id number] [place] [address]- 5049 Apr, [facility] [place] [facility] [address] [id number] [place] [address]- 8562 Apr, [facility] [place] [facility] [address] [id number] [place] [address]- 5418 Apr, [facility] [place] [facility] [address] [id number] [place] [address]- 9600 Apr, [facility] [place] [facility] [address] [id number] [place] [address]- 9710 Apr, [facility] [place] [facility] [address] [id number] [place] [address]- 6591 Apr, [facility] [place] [facility] [address] [id number] [place] [address]- 6854 Apr, [facility] [place] [facility] [address] [id number], [place] [address]- 9762 Apr, [facility] [place] [facility] [address] [id number] [place] [address]- 6845 Apr, [facility] [place] [facility] [address] [id number] [place] [address]- 3010 Apr, [facility] [place] [facility] [address] [id number], [place] [address]- 1875 Apr, [facility] [place] [facility] [address] [id number], [place] [address]- 9910 Mar, [facility] [place] [facility] [address] [id number] [place] [address]- 7456 Mar, [facility] [place] [facility] [address] [id number] [place] [address]- 4465 Mar, [facility] [place] [facility] [address] [id number] [place] [address]- 2359 Mar, [facility] [place] [facility] [address] [id number] [place] [address]- 0814 Feb, [facility] [place] [facility] [address] [id number] [place] [address]- 9965 Feb, [facility] [place] [facility] [address] [id number] [place] [address]- 8565 05 Feb, 2014 [facility] [place] [facility] [address] [id number] [place] [address]- 5837 Feb, [facility] [place] [facility] [address] [id number] [place] [address]- 4050 Feb, [facility] [place] [facility] [address] [id number] [place] [address]- 2632 Feb, [facility] [place] [facility] [address] [id number] [place] [address]- 8244 Jan, [facility] [place] [facility] [address] [id number] [place] [address]- 6041 Jan, [facility] [place] [facility] [address] [id number] [place] [address]- 4050 Jan, [facility] [place] [facility] [address] [id number] [place] [address]- 2132 Jan, [facility] [place] [facility] [address] [id number] [place] [address]- 6136 Jan, [facility] [place] [facility] [address] [id number] [place] [address]- 0562 Jan, [facility] [place] [facility] [address] [id number] [place] [address]- 5469 Jan, 2013 [facility] [place] [facility] [address] [id number] [place] [address]- 3246 Jan, [facility] [place] [facility] [address] [id number] [place] 7614 Jan, [facility] [place] [facility] [address] [id number] [place] [address]- 6826 Jan, [facility] [place] [facility] [address] [id number] [place] [address]- 9788 Jan, [facility] [place] [facility] [address] [id number] [place] [address]- 8958 Jan, [facility] [place] [facility] [address] [id number] [place] [address]- 7428 Jan, [facility] [place] [facility] [address] [id number] [place] [address]- 8440 Jan, [facility] [place] [facility] [address] [id number] [place] [address]- 7499 Dec, [facility] [place] [facility] [address] [id number] [place] [address]- 8116 Dec, [facility] [place] [facility] [address] [id number] [place] [address]- 2143 Dec, [facility] [place] [facility] [address] [id number] [place] [address]- 3968 Dec, [facility] [place] [facility] [address] [id number] [place] [address]- 1454 Nov, [facility] [place] [facility] [address] [id number] [place] [address]- 7853 Nov, [facility] [place] [facility] [address] [id number] [place] [address]- 2467 Nov, [facility] [place] [facility] [address] [id number] [place] [address]- 2431 Nov, [facility] [place] [facility] [address] [id number] [place] [address]- 8276 Nov, [facility] [place] [facility] [address] [id number] [place] [address]- 7346 October, [facility] [place] [facility] [address] [id number] [place] [address]- 3081 October, [facility] [place] [facility] [address] [id number] [place] [address]- 1287 October, [facility] [place] [facility] [address] [id number] [place] [address]- 2897 October, [facility] [place] [facility] [address] [id number] [place] [address]- 8087 October, [facility] [place] [facility] [address] [id number] [place] [address]- 3053 October, [facility] [place] [facility] [address] [id number] [place] [address]- 8594 October, [facility] [place] [facility] [address] [id number] [place] [address]- 4634 October, [facility] [place] [facility] [address] [id number] [place] [address]- 6816 October, [facility] [place] [facility] [address] [id number] [place] [address]- 3163 October, [facility] [place] [facility] [address] [id number] [place] [address]- 2307 October, [facility] [place] [facility] [address] [id number] [place] [address]- 7863 October, [facility] [place] [facility] [address] [id number] [place] [address]- 1429 October, [facility] [place] [facility] [address] [id number] [place] [address]- 1710 October, [facility] [place] [facility] [address] [id number] [place] [address]- 1412 17 Sep, 2013 [facility] [place] [facility] [address] [id number] [place] [address]- 7120 17 Sep, 2013 [facility] [place] [facility] [address] [id number] [place] [address]- 0985 Sep, [facility] [place] [facility] [address] [id number] [place] [address]- 3726 Sep, [facility] [place] [facility] [address] [id number] [place] [address]- 3454 Sep, [facility] [place] [facility] [address] [id number] [place] [address]- 0562 Sep, [facility] [place] [facility] [address] [id number] [place] [address]- 8371 Sep, [facility] [place] [facility] [address] [id number] [place] [address]- 9512 Sep, [facility] [place] [facility] [address] [id number] [place] [address]- 8231 Sep, [facility] [place] [facility] [address] [id number] [place] [address]- 9599 Sep, [facility] [place] [facility] [address] [id number] [place] [address]- 0965 Sep, [facility] [place] [facility] [address] [id number] [place] [address]- 0881 Sep, [facility] [place] [facility] [address] [id number] [place] [address]- 6778 Sep, [facility] [place] [facility] [address] [id number] [place] [address]- 8183 Sep, [facility] [place] [facility] [address] [id number] [place] [address]- 0602 Sep, [facility] [place] [facility] [address] [id number] [place] [address]- 6204 Aug, [facility] [place] [facility] [address] [id number] [place] [address]- 8661 Aug, [facility] [place] [facility] [address] [id number] [place] [address]- 6939 Aug, [facility] [place] [facility] [address] [id number] [place] [address]- 9931 Aug, [facility] [place] [facility] [address] [id number] [place] [address]- 5669 Jul, [facility] [place] [facility] [address] [id number] [place] [address]- 8267 Jul, [facility] [place] [facility] [address] [id number] [place] [address]- 3967 Jul, [facility] [place] [facility] [address] [id number] [place] [address]- 3231 Jul, [facility] [place] [facility] [address] [id number] [place] [address]- 6616 Jun, [facility] [place] [facility] [address] [id number] [place] [address]- 2802 Jun, [facility] [place] [facility] [address] [id number] [place] [address]- 3393 Jun, [facility] [place] [facility] [address] [id number] [place] [address]- 6910 Jun, [facility] [place] [facility] [address] [id number] [place] [address]- 9626 Jun, [facility] [place] [facility] [address] [id number] [place] [address]- 7856 Jun, [facility] [place] [facility] [address] [id number] [place] [address]- 0795 Jun, [facility] [place] [facility] [address] [id number] [place] [address]- 5757 Jun, [facility] [place] [facility] [address] [id number], [place] [address]- 6659 20 May, 2013 [facility] [place] [facility] [address] [id number] [place] [address]- 3801 20 May, 2013 [facility] [place] [facility] [address] [id number] [place] 3323 18 May, 2013 [facility] [place] [facility] [address] [id number] [place] 3739 18 May, 2013 [facility] [place] [facility] [address] [id number] [place] [address]- 9287 17 May, 2013 [facility] [place] [facility] [address] [id number] [place] [id number] 17 May, 2013 [facility] [place] [facility] [address] [id number] [place] [address]- 7656 17 May, 2013 [facility] [address] [id number] [place] [address]- 7016 17 May, 2013 [facility] [facility] [address] [id number] [place] [address]- 5369 16 May, 2013 [facility] [address] [id number] [place] [address]- 0205 16 May, 2013 [facility] [address] [id number] [place] [address]- 8390 14 May, 2013 [facility] [facility] [address] [id number] [place] [address]- 5799 14 May, 2013 [facility] [address] [id number] [place] [address]- 8124 13 May, 2013 [facility] [address] [id number] [place] [address]- 7862 13 May, 2013 [facility] [place] [facility] [address] [id number] [place]242 12 May, 2013 [facility] [address] [id number] [place] [address]- 8623 12 May, 2013 [facility] [place] [facility] [address] [id number] [place] [address]- 2532 May, [facility] [address] [id number] [place] [address]- 3326 May, [facility] [address] [id number] [place] [address]- 3811 Apr, [facility] [address] [id number] [place] [address]- 8624 Apr, [facility] [address] [id number] [place] [address]- 0022 Apr, [facility] [address] [id number] [place] [address]- 5418 Apr, [facility] [address] [id number] [place] [address]- 1352 Aug, [facility] [address] [id number] [place] [address]- 2697 Aug, [facility] [address] [id number] [place] [address]- 7541 Aug, [facility] [address] [id number] [place] [address]- 0909 Aug, [facility] [address] [id number] [place] [address]- 2032 Jul, [facility] [address] [id number] [place] [address]- 8584 Jun, [facility] [address] [id number] [place] [address]- 0926 Jun, [facility] [address] [id number] [place] [address]- 2546 Jun, [facility] [address] [id number] [place] [address]- 2546 Jun, [facility] [address] [id number] [place] [address]- 8108 May, [facility] [place] [facility] [address] [id number] [place] [address]- 9857 May, [facility] [place] [facility] [address] [id number] [place] [address]- 7111 May, [facility] [place] [facility] [address] [id number] [place] 3864 May, [facility] [place] [facility] [address] [id number] [place] [address]- 2070 May, [facility] [place] [facility] [address] [id number] [place] [address]- 9361 May, [facility] [place] [facility] [address] [id number] [place] [address]- 3899 May, [facility] [place] [facility] [address] [facility] [id number] [place] [address] Apr, [facility] [place] [facility] [address] [id number], [place] [address] Apr, [facility] [place] [facility] [address] [id number] [place] [address] Apr, [facility] [place] [facility] [address] [facility] [id number], [place] [address] Apr, [facility] [place] [facility] [address] [id number], [place] [address] Apr, [facility] [place] [facility] [address] [id number], [place] [address] Apr, [facility] [place] [facility] [address] [id number], [place] [address] Apr, [facility] [place] [facility] [address] [id number], [place] [address] Mar, [facility] [place] [facility] [address] [id number], [place] [address] Mar, [facility] [place] [facility] [address] [id number] [place] [address] 19 Mar, 2012 [facility] [place] [facility] [address] [id number] [place] [address] Mar, 2011 [facility] [place] [facility] [address] [id number] [place] [address] Mar, [facility] [place] [facility] [address] [id number] [place] [address] 1681 Mar, [facility] [place] [facility] [address] [id number] [place] [address] 2586 Mar, [facility] [place] [facility] [address] [id number] [place] [address] Mar, [facility] [place] [facility] [address] [id number] [place] [address] 8872 Mar, [facility] [place] [facility] [address] [id number] [place] [address] Mar, [facility] [place] [facility] [address] [id number] [place] [address] 1155 Mar, [facility] [place] [facility] [address] [id number] [place] [address] Mar, [facility] [place] [facility] [address] [facility] [id number] [place] [address] Feb, [facility] [place] [facility] [address] [id number] [place] [address] Jan, [facility] [place] [facility] [address] [id number] [place] [address] Jan, [facility] [place] [facility] [address] [id number] [place] [address]65 Jan, [facility] [place] [facility] [address] [id number] [place] [address] 7934 Jan, [facility] [place] [facility] [address] [facility] [id number] [place] [address] Jan, [facility] [place] [facility] [address] [id number] [place] [address] 1048 Dec, [facility] [place] [facility] [address] [id number] [place] [address] Dec, [facility] [place] [facility] [address] [id number] [place] [address] Nov, [facility] [place] [facility] [address] [id number] [place] [address] 69[address] Nov, [facility] [place] [facility] [address] [id number] [place] [address]107 Nov, [facility] [place] [facility] [address] [id number] [place] [address] October, [facility] [address] [id number] [place] [address] October, [facility] [address] [id number] [place] [address] October, [facility] [address] [id number] [place] [address] October, [facility] [place] [facility] [address] [id number] [place] [address] 9944 October, [facility] [place] [facility] [address] [id number] [place] [address] October, [facility] [place] [facility] [address] [id number] [place] [address] October, [facility] [place] [facility] [address] [id number] [place] [address] 7973 Sep, [facility] [place] [facility] [address] [id number] [place] [address] 4[address] Sep, [facility] [place] [facility] [address] [id number] [place] [address] 1818 Sep, [facility] [place] [facility] [address] [id number] [place] [address]60 25 Sep, 2011 [facility] [place] [facility] [address] [id number] [place] [address]- 8171 24 Sep, 2011 [facility] [place] [facility] [address] [id number] [place] [address]273 19 Sep, 2011 [facility] [place] [facility] [address] [id number] [place] [address] 7118 17 Sep, 2011 [facility] [place] [facility] [address] [id number] [place] [address] 9942 16 Sep, 2011 [facility] [place] [facility] [address] [id number] [place] [address]- 9944 16 Sep, 2011 [facility] [place] [facility] [address] [id number] [place] [address]- 76[address] 14 Sep, 2011 [facility] [place] [facility] [address] [id number] [place] [address]- [address]90 13 Sep, 2011 [facility] [place] [facility] [address] [id number] [place] [address] 3250 10 Sep, 2011 [facility] [place] [facility] [address] [id number] [place] [address]- 9183 09 Sep, 2011 [facility] [place] [facility] [address] [id number] [place] [address]- [address]006 27 Aug, 2011 [facility] [place] [facility] [address] [id number] [place] [address]- 8422 12 Aug, 2011 [facility] [place] [facility] [address] [id number] [place] [address]10 08 Aug, 2011 [facility] [place] [facility] [address] [id number] [place] [address]- 7533 06 Aug, 2011 [facility] [place] [facility] [address] [id number] [place] [address] 2913 28 Jul, 2011 [facility] [place] [facility] [address] [id number] [place] [address] 4418 Jul, [facility] [place] [facility] [address] [id number] [place] [address]- 3664 16 Jul, 2011 [facility] [address] [id number] [place] [address] 0386 15 Jul, 2011 [facility] [place] [facility] [address] [id number] [place] [address]- 7946 14 Jul, 2011 [facility] [place] [facility] [address] [id number] [place] [address]- 7016 10 Jul, 2011 [facility] [place] [facility] [address] [id number] [place] [address]- 8296 30 Jun, 2011 [facility] [place] [facility] [address] [id number] [place] [address]- 4260 05 Jun, 2011 [facility] [address] [id number] [place] [address]- 8595 Jun, [facility] [address] [id number] [place] [address]- 35[address] Jun, [facility] [address] [id number] [place] [address]- 4048 Jun, [facility] [address] [id number] [place] [address] May, [facility] [address] [id number] [place] [address] May, [facility] [place] [facility] [address] [id number] [place] [address] 14 May, 2011 [facility] [place] [facility] [address] [id number] [place] [address] 14 May, 2011 [facility] [place] [facility] [address] [id number] [place] [address] 12 May, 2011 [facility] [place] [facility] [address] [id number] [place] [address]46 07 May, 2011 [facility] [place] [facility] [address] [id number] [place] [address] May, [facility] [place] [facility] [address] [id number] [place] [address] Apr, [facility] [place] [facility] [address] [id number] [place] [address] Apr, [facility] [place] [facility] [address] [id number] [place] [address] Apr, [facility] [place] [facility] [address] [id number] [place] [address] Apr, [facility] [place] [facility] [address] [id number] [place] [address] Apr, [facility] [place] [facility] [address] [id number] [place] [address] Apr, [facility] [place] [facility] [address] [id number] [place] [address] Mar, [facility] [place] [facility] [address] [id number] [place] [address] Mar, [facility] [place] [facility] [address] [id number] [place] [address] Mar, [facility] [place] [facility] [address] [id number] [place] [address] Mar, [facility] [place] [facility] [address] [id number], [place] [address] Jan, [facility] [place] [facility] [address] [id number], [place] [address] Dec, [facility] [place] [facility] [address] [id number] [place] [address] Dec, [facility] [place] [facility] [address] [id number], [place] [address] October, [facility] [place] [facility] [address] [id number] [place] [address] Sep, [facility] [place] [facility] [address] [id number] [place] [address] 14 Sep, 2010 [facility] [address] [id number] [place] [address] 17 Jul, 2010 [facility] [address] [id number] [place] [address] 2546 16 Jul, 2010 [facility] [address] [id number] [place] [address] 31 May, 2010 [facility] [place] [facility] [address] [id number] [place] [address] 2543 27 May, 2010 [facility] [address] [id number] [place] [address], [place] [address] 08 May, 2010 [facility] [address] [id number] [place] [address] 06 May, 2010 [facility] [address] [id number] [place] [address] Apr, [facility] [address] [id number] [place] [address] Apr, [facility] [address] [id number] [place] [address] Apr, [facility] [address] [facility] [id number] [place] [address] 18 Apr, 2010 [facility] [place] [facility] [address] [id number] [place] [address] 2547 Apr, [facility] [place] [facility] [address] [id number] [place] [address] 21 Mar, 2010 [facility] [place] [facility] [address] [id number] [place] [address] 1492 14 Mar, 2010 [facility] [place] [facility] [address] [id number] [place] [address] 13 Mar, 2010 [facility] [place] [facility] [address] [id number] [place] [address] Mar, [facility] [address] [facility] [id number], [place] [address] Jan, [facility] [address] [facility] [id number][place] [address] Dec, [facility] [id number] [address] Sep, [facility] [id number], [place] [address] May, [facility] [address] [facility] [id number] [address] May, [facility] [id number] May, [facility] [id number], [place] [address] Apr, [facility] [id number], [place] [address] Apr, [facility] [id number], [place] [address] Apr, [facility] [address] [id number], [place] [address] Apr, [facility] [id number], [place] [address] Apr, [facility] [address] [id number], [place] [address] Mar, [facility] [address] [id number], [place] [address] Mar, [facility] [address] [id number], [place] [address] Jul, IMMUNIZATIONS No Known Immunizations SOCIAL HISTORY Never Assessed REASON FOR VISIT [place] [place] VITAL SIGNS MEDICATIONS Unknown [...] January before. 03/2018 Hospitalization History Cellulitis-[facility] 12/20/15 Hospital[facility] History [facility]- Abd pain 03/07/2017 Hospital[facility]- Abd pain 03/14/2017 Hospital[facility]- No bowel movement, rash 04/13/2017 Hospitalization History [facility]- Abd pain r/t kidney surgery on 04/17/2017 Hospitalization History [facility]- Abd pain r/t kidney surgery on 04/18/2017 [facility] History [facility]- Lower abd pain 04/30/2017 [facility] History [facility] [place]- Cannot urinate 05/30/2017 Hospitalization History [facility] [place]- Pancreatitis Sx 06/29/2017 Hospitalization History [facility] [place]- Stomach pain 07/22/2017 Hospitalization History [facility] [place]- Left side pain 08/12/2017 Hospitalization History [facility] [place]- Incision site infection 08/30/2017 [facility] Seroma/Hematoma Left Abdomen. Discharged 09/04/17- Dr Daniel 09/02/2017 Hospitalization History [facility] [place]- Right shoulder and back pain 2017 Hospitalization History [facility] [place]- Shoulder/Back pain 11/11/2017 [facility] [place]- Right shoulder blade pain 12/04/2017 [facility] History [facility]- C-Diff 12/13/2017 Hospitalization History C diff et MRSA 12/27/2017
--- OUTSIDE RECORDS SUMMARY | 2018-10-27 13:07 | XMS REPORT ---
Author Author Migration, Doctor Organization [facility] Address Unknown Phone Unavailable Care Team Providers Care Clinical Trials Specialist Name Role Phone Migration, Doctor Unavailable Unavailable PROBLEMS Type Condition ICD9-CM Code QPY01-VA Code Onset Dates Condition Status SNOMED Code Problem Chronic tension-type headache, intractable G44.221 Active 141264934 Problem Right carpal tunnel syndrome G56.01 Active 392546289871810 Problem Hyperlipidemia, mixed E78.2 Active 707281556 Problem Morbid (severe) obesity due to excess calories E66.01 Active 138040941 Problem FH: polycystic ovary Z84.2 Active 195081107 Problem Hirsuties L68.0 Active 165436604 Problem Asthma J45.909 Active 695820302 Problem Chronic pancreatitis K86.1 Active 119899301 Problem Trichotillomania F63.3 Active 30191334 Problem Restless leg syndrome G25.81 Active 22812290 Problem Generalized social phobia F40.11 Active 88253099 Problem Primary osteoarthritis of right knee M17.11 Active 449573080423574 Problem Atelectasis J98.11 Active 35249801 Problem History of renal cell carcinoma Z85.528 Active 232355186 Problem Obesities, morbid E66.01 Active 612009687 Problem Polydipsia R63.1 Active 45036558 Problem Nodule of left lung R91.1 Active 306024966 Problem Chronic post-traumatic stress disorder (PTSD) F43.12 Active 355484362 Problem Moderate episode of recurrent major depressive disorder F33.1 Active 018549110 Problem Chronic fatigue R53.82 Active 80171364 Problem Intestinal malabsorption, unspecified K90.9 Active 43447745 ALLERGIES No Information ENCOUNTERS Encounter Location Date Diagnosis [facility] [id number] [address] October, [facility] [address] [facility] [place] [id number] [address] October, [facility] [address] [address] 164[address] October, [facility] [address] [place] [address] Sep, [facility] [address] [facility] [id number] [address] Sep, [facility] [address] [address] 44[address] Sep, [facility] [id number] [place] [address] 36391- 9354 Sep, [facility] [id number] [place] [address] 11140- 7251 Sep, Lower extremity edema R60.0 [facility] [address] [address] Sep, [facility] [id number] [place] [address] 93484 -1785 Sep, Lower extremity edema R60.0 and Morbid obesity E66.01 [facility] [address] [address] 72[address] Sep, [facility] [id number] [place] [address] 34263- 1106 Sep, [facility] [address] [address] 3[address] Aug, [facility] [address] [address] Aug, Obesities, morbid E66.01 and Morbid obesity E66.01 [facility] [address] [address] 495[address] Aug, [facility] [address] [address] Jul, [facility] [address] [address] 1479 Jul, [facility] [id number] [place] [address] 86833- 4534 Jul, [facility] [id number] [place] [address] 62476- 2419 Jul, Numbness of right hand R20.0 [facility] [id number] [place] [address] 22926- 5836 Jul, [facility] [id number] [place] [address] 66942- 0082 Jul, Numbness of right hand R20.0 [facility] [id number] [place] [address] 35350- 9609 Jul, [facility] [id number] [place] [address] 35408- 3084 Jul, [facility] [id number] [place] [address] 96806- 2717 Jul, Right-sided thoracic back pain M54.6 [facility] [id number] [place] [address] 51638- 4737 Jul, [facility] [id number] [place] [address] 72759- 4499 Jul, [facility] [id number] [place] [address] 25620- 1733 Jul, [facility] [id number] [place] [address] 50373- 1228 Jul, [facility] [id number] [place] [address] 90211- 5135 Jun, [facility] [id number] [place] [address] 24925- 0006 Jun, Acute pain of right shoulder M25.511 ; Numbness of right hand R20.0 and Trapezius muscle spasm M62.838 [facility] [id number] [place] [address] 53613- 7737 Jun, [facility] [id number] [place] [address] 23980- 4503 Jun, [facility] [id number] [place] [address] 82051- 9437 Jun, Cough R05 ; BMI 50.0-59.9, adult Z68.43 and Morbid obesity E66.01 [facility] [address] [address]- 3329 Jun, [facility] [id number] [place] [address] 40546- 0587 Jun, [facility] [id number] [place] [address] 08345 -8014 Jun, BMI 45.0-49.9, adult Z68.42 and Acute non-recurrent maxillary sinusitis J01.00 [facility] [id number] [place] [address] 13103 -4323 Jun, Acute sinusitis J01.90 ; Dysuria R30.0 and BMI 45.0-49.9, adult Z68.42 [facility] [id number] [place] [address] 50204- 3521 Jun, [facility] [id number] [place] [address] 57327- 5276 Jun, [facility] [id number] [place] [address] 22054- 5670 May, [facility] [id number] [place] [address] 94929- 2869 May, [facility] [id number] [place] [address] 19564- 4594 May, [facility] [id number] [place] [address] 83181- 4092 May, [facility] [address] 02716- 7128 May, [place] [id number] [place] [address] 52068- 7195 Apr, Generalized social phobia F40.11 ; Trichotillomania F63.3 ; Chronic post-traumatic stress disorder (PTSD) F43.12 and BMI 45.0-49.9, adult Z68.42 [address] [place] [address] 26583- 8486 Apr, [address] [address] 79761- 2141 Apr, Chronic tension-type headache, intractable G44.221 [address] [place] 09694- 2420 Apr, [facility] [address] [place] [address] 01923 -3491 Mar, [facility] [address] [address] -[address] Mar, BMI 45.0-49.9, adult Z68.42 and Pimples R23.8 [id number] [place] [address] 85161- 7331 Mar, [place] [id number] [place] [address] 50642- 6685 Mar, [place] [id number] [place] [address] 56613- 3215 Mar, Decreased urination R34 ; Chronic fatigue R53.82 ; Peripheral edema R60.9 ; Diarrhea, unspecified type R19.7 ; Non-intractable vomiting with nausea, unspecified vomiting type R11.2 ; BMI 45.0-49.9, adult Z68.42 and Chronic post-traumatic stress disorder (PTSD) F43.12 [address] [place] [id number] [place] [address] 19116- 5167 Mar, Intestinal malabsorption, unspecified K90.9 ; Diarrhea, unspecified R19.7 ; Urinary urgency R39.15 ; Rectal bleeding K62.5 and Decreased urine output R34 [facility] [id number] [place] [address] 28602- 6010 Mar, Decreased urine output R34 [facility] [id number] [place] [address] 18511- 4365 Mar, Rectal bleeding K62.5 [facility] [address] 85975- 8001 Mar, Rectal bleeding K62.5 [facility] [id number] [place] [address] 25418- 6036 Mar, Urinary urgency R39.15 [facility] [id number] [place] [address] 03920- 8137 Mar, Urinary urgency R39.15 [address] [place] [id number] [place] [address] 47742- 3941 Mar, Primary osteoarthritis of right knee M17.11 and BMI 45.0- 49.9, adult Z68.42 [address] [id number] [place] [address] 38688- 8596 Mar, [facility] [id number] [place] [address] 81977- 4987 Feb, Left upper arm pain M79.622 [facility] [id number] [place] [address] 56207- 9927 Feb, [facility] [id number] [place] [address] 04350- 6188 Jan, Acute pain of right knee M25.561 ; Right upper quadrant abdominal pain R10.11 and BMI 45.0-49.9, adult Z68.42 [facility] [id number] [place] [address] 91037- 0097 Jan, [facility] [id number] [place] [address] 50461- 7219 Jan, [facility] [address] [address]- 8580 Dec, [facility] [id number] [place] [address] 75997- 8925 Dec, Intestinal malabsorption, unspecified K90.9 and Diarrhea, unspecified R19.7 [facility] [id number] [place] [address] 20599- 8661 Dec, [facility] [id number] [place] [address] 08136- 3912 Dec, Strep throat J02.0 ; Intestinal malabsorption, unspecified K90.9 ; Diarrhea, unspecified R19.7 ; Postoperative seroma involving digestive system after non-digestive system procedure K91.873 ; Hyperlipidemia, mixed E78.2 and BMI 45.0-49.9, adult Z68.42 [facility] [id number] [place] [address] 48503- 4836 Dec, [facility] [id number] [place] [address] 77876- 2121 Dec, Nausea R11.0 [facility] [id number] [place] [address] 87683- 3177 Dec, [facility] [address] [address] Dec, Sore throat J02.9 ; Strep throat J02.0 and BMI 45.0-49.9, adult Z68.42 [facility] [address] [address]- 8725 Dec, [facility] [id number] [place] [address] 38941- 8856 Dec, [facility] [address] [address]- 5389 Dec, [facility] [id number] [place] [address] 77236- 2433 Dec, [facility] [address] [address]- 9271 Dec, [facility] [id number] [place] [address] 17003- 5579 Dec, [facility] [id number] [place] [address] 86011- 0931 Dec, [facility] [id number] [place] [address] 49560- 8514 Dec, [facility] [id number] [place] [address] 01857- 3386 Dec, Clostridium difficile colitis A04.72 ; Intractable vomiting with nausea, unspecified vomiting type R11.2 and BMI 45.0-49.9, adult Z68.42 [facility] [id number] [place] [address] 59139- 7751 Dec, [facility] [id number] [address]- 6829 Nov, [facility] [id number] [place] [address] 21186- 0096 Nov, [facility] [id number] [place] [address] 26693- 3742 Nov, [facility] [id number] [place] [address] 08698- 9539 Nov, [facility] [address] [address]7386 Nov, [facility] [id number] [place] [address] 24330- 5169 Nov, Hyperlipidemia, mixed E78.2 [facility] [address] [address] Nov, Acute suppurative otitis media of right ear without spontaneous rupture of tympanic membrane, recurrence not specified H66.001 and BMI 45.0-49.9, adult Z68.42 [address] [place] [address]- 0663 Nov, Hyperlipidemia, mixed E78.2 [address] [id number] [place] [address] 21064- 9583 Nov, [address] [id number] [place] [address] 19672- 5910 Nov, [place] [id number] [place] [address] 18517- 0979 Nov, Nodule of left lung R91.1 [id number] [place] [address] 65196- 6135 Nov, Medicare annual wellness visit, initial Z00.00 [...] adult Z68.42 and Encounter for immunization Z23 [address] [id number] [place] [address] 55272- 6632 October, [address] [place] [place] [address] 44573- 5793 October, Nodule of left lung R91.1 [address] [id number] [place] [address] 56014- 6429 October, Nodule of left lung R91.1 [address] [id number] [place] [address] 00191- 4922 October, Recurrent major depressive disorder, in partial remission F33.41 ; Restless leg syndrome G25.81 ; Generalized social phobia F40.11 ; Chronic post-traumatic stress disorder (PTSD) F43.12 ; BMI 45.0-49.9, adult Z68.42 and Trichotillomania F63.3 [address] [id number] [place] [address] 62237- 4044 October, [facility] [id number] [place] [address] 21516- 6719 Sep, Chronic fatigue R53.82 and BMI 45.0-49.9, adult Z68.42 [address] [id number] [place] [address] 89906- 4061 Aug, [place] [id number] [place] [address] 46693- 8755 Jul, Restless leg syndrome G25.81 and B12 deficiency E53.8 [address] [address] 14819- 2351 Jul, [place] [address] 19119- 1079 Jul, [place] [id number] [place] [address] 98400- 1386 Jun, [place] [id number] [place] [address] 27010- 5586 Jun, Fatigue, unspecified type R53.83 ; History of renal cell carcinoma Z85.528 ; Chronic pancreatitis K86.1 ; Restless leg syndrome G25.81 ; Dark urine R82.99 and BMI 45.0-49.9, adult Z68.42 [place] [id number] [place] [address] 04928- 5681 Jun, [place] [address] 56442- 9950 Jun, [facility] [id number] [place] [address] 51698- 8576 Jun, [place] [id number] [place] [address] 32503- 1057 Jun, [place] [address] [address]- 0874 May, Chronic post-traumatic stress disorder (PTSD) F43.12 ; Moderate episode of recurrent major depressive disorder F33.1 ; Trichotillomania F63.3 and Generalized social phobia F40.11 [address] [id number] [place] [address] 49056- 5156 May, [place] [id number] [place] [address] 14374- 7165 May, Chronic post-traumatic stress disorder (PTSD) F43.12 ; Moderate episode of recurrent major depressive disorder F33.1 ; Trichotillomania F63.3 and Generalized social phobia F40.11 [address] [address] [place] [address] 08459- 2988 May, Hyperlipidemia, mixed E78.2 ; Morbid (severe) obesity due to excess calories E66.01 ; Chronic post-traumatic stress disorder (PTSD) F43.12 ; Moderate episode of recurrent major depressive disorder F33.1 ; Trichotillomania F63.3 and Generalized social phobia F40.11 [address] [address] [place] [address] 42712- 4327 Apr, [place] [id number] [place] [address] 51664- 0664 Apr, Hyperlipidemia, mixed E78.2 ; Morbid (severe) obesity due to excess calories E66.01 ; Chronic post-traumatic stress disorder (PTSD) F43.12 ; Moderate episode of recurrent major depressive disorder F33.1 ; Trichotillomania F63.3 and Generalized social phobia F40.11 [place] [id number] [place] [address] 01849- 9807 Apr, Trichotillomania F63.3 ; Generalized social phobia F40.11 ; Chronic post-traumatic stress disorder (PTSD) F43.12 and Moderate episode of recurrent major depressive disorder F33.1 [place] [id number] [place] [address] 53187- 8422 Apr, [facility] [id number] [place] [address] 92725- 9811 Apr, [facility] [id number] [place] [address] 37957- 2314 Mar, Moderate episode of recurrent major depressive disorder F33.1 ; Trichotillomania F63.3 ; Chronic post-traumatic stress disorder (PTSD) F43.12 ; Generalized social phobia F40.11 and Restless leg syndrome G25.81 [facility] [id number] [place] [address] 53445- 1118 Mar, [facility] [id number] [place] [address] 72935- 0179 Mar, [place] [id number] [place] [address] 27184- 3995 Feb, Left kidney mass N28.89 [facility] [id number] [place] [address] 80181- 7419 Jan, [facility] [id number] [place] [address] 88469- 8017 Dec, Polydipsia R63.1 ; Chronic pancreatitis K86.1 and Fatigue, unspecified type R53.83 [place] [id number] [place] [address] 77401- 0739 Nov, [facility] [id number] [place] [address] 68811- 4094 Nov, [facility] [id number] [place] [address] 90764- 5295 Nov, Headache around the eyes R51 [facility] [id number] [place] [address] 74064- 9072 Nov, [facility] [id number] [place] [address] 44904- 0475 October, STD exposure Z20.2 [facility] [id number] [place] [address] 99056- 5354 October, STD exposure Z20.2 [place] [id number] [place] [address] 37533- 1239 October, Chronic post-traumatic stress disorder (PTSD) F43.12 ; Generalized social phobia F40.11 ; Trichotillomania F63.3 and Restless leg syndrome G25.81 [facility] [id number] [place] [address] 78259- 8043 October, [place] [id number] [place] [address] 54867- 3167 Sep, [facility] [id number] [place] [address] 78978- 2714 Aug, [place] [id number] [place] [address] 95271- 7184 Aug, [facility] [id number] [place] [address] 67774- 7359 Aug, Neck mass R22.1 [place] [id number] [place] [address] 39422- 3882 Aug, Atelectasis J98.11 [place] [id number] [place] [address] 98784- 2607 28 Jul, 2016 Hyperlipidemia, mixed E78.2 ; Atypical pneumonia J18.9 and Neck mass R22.1 [place] [id number] [place] [address] 43387- 0225 15 Jul, 2016 Hemoptysis R04.2 [place] [id number] [place] [address] 98648- 4711 08 Jul, 2016 Acute non-recurrent pansinusitis J01.40 ; Hemoptysis R04.2 ; Polydipsia R63.1 and Malaise R53.81 [facility] [id number] [place] [address] [phone] -[phone] May, Other viral agents as the cause of diseases classified elsewhere B97.89 and Acute upper respiratory infection, unspecified J06.9 [facility] [place] [id number] [place] [phone]4815 Mar, Nausea R11.0 [facility] [place] [id number] [place] [address]84 -2100 Dec, Hives L50.9 [place] [address] [address]- [address]60 Dec, [facility] [address] 65[address] Dec, Cutaneous abscess of limb, unspecified L02.419 ; Cellulitis of unspecified part of limb L03.119 ; Encounter for incision and drainage procedure Z01.89 and Encounter for recheck of abscess following incision and drainage Z09 [facility] [place] [id number] [place] [address] 6[address] -8715 Dec, Abscess of leg, right L02.415 [place] [id number] [place] [address] 69202- 7659 Dec, Cellulitis of unspecified part of limb L03.119 and Cutaneous abscess of limb, unspecified L02.419 [place] [id number] [place] [address] 59970- 4937 Dec, [place] [id number] [place] [address] 76123- 7781 Dec, [facility] [place] [id number] [place] [address] [phone] -1190 Aug, [place] [id number] [place] [address] 42696- 2262 Aug, [facility] [place] [id number] [place] [address] 87538 -6982 Jul, Pain in unspecified wrist M25.539 and Back pain, thoracic M54.6 [facility] [id number] [place] [address] 22456 -6024 Jun, Strain of right wrist, initial encounter S66.911A [facility] [id number] [place] [address] 36532- 8104 11 Jun, 2015 Chronic pancreatitis, unspecified pancreatitis type K86.1 ; Hirsuties L68.0 ; Morbid (severe) obesity due to excess calories E66.01 ; Chronic pancreatitis K86.1 and Asthma J45.909 [facility] [id number] [place] [address] 40326- 8419 May, [place] [address] 84331- 6641 May, Hyperlipidemia, mixed E78.2 and Muscle spasm of back M62.830 [place] [address] 48616- 7141 Apr, [place] [id number] [place] [address] 83304- 0944 Apr, Torticollis M43.6 [facility] [id number] [place] [address] 34876- 5761 Apr, Right-sided thoracic back pain M54.6 [facility] [id number] [place] [address] 44760- 2511 Mar, Rash R21 [facility] [id number] [place] [address] 19182- 6796 Mar, [place] [id number] [place] [address] 21763- 7971 Jan, [facility] [address] 59450- 7564 Dec, [facility] [id number] [place] [address] 63202- 2481 Dec, Urinary frequency 788.41 and Nocturia more than twice per night 788.43 [facility] [address] [address] 1375 Nov, [facility] [id number] [place] [address] 99820- 2258 Nov, [facility] [id number] [place] [address] 86125- 7276 Nov, Abdominal pain 789.00 [facility] [id number] [place] [address] 76093- 1744 October, TDAP DX V06.1 [facility] [id number] [place] [address] 52007- 3136 October, [facility] [id number] [place] [address] 09302- 0503 October, Disturbance of skin sensation 782.0 ; Wrist pain, right 719.43 ; Hyperlipidemia 272.4 and Skin lesion of face 709.9 [facility] [id number] [place] [address] 21861- 5533 Sep, [facility] [id number] [place] [address] 19688- 0824 Sep, [facility] [id number] [address]- 5436 Aug, [facility] [address] [address]- 4240 Aug, [facility] [address] [address]- 4380 Aug, [facility] [id number] [place] [address] 76437- 8310 Aug, [facility] [id number] [address]- 8422 Aug, [facility] [id number] [place] [address] 99455- 5774 Aug, [facility] [place] [facility] [address] [id number] [place] [address]- 7103 14 Aug, 2014 [facility] [place] [facility] [address] [id number] [place] [address]- 1512 14 Aug, 2014 [facility] [place] [facility] [address] [id number] [place] [address]- 0991 Aug, [facility] [place] [facility] [address] [id number] [place] [address]- 1903 Aug, [facility] [place] [facility] [address] [id number] [place] [address]- 4045 Aug, [facility] [place] [facility] [address] [id number] [place] [address]- 5108 Aug, [facility] [place] [facility] [address] [id number] [place] [address]- 7568 Aug, [facility] [place] [facility] [address] [id number] [place] [address]- 9532 Aug, [facility] [place] [facility] [address] [id number] [place] [address]- 4785 Jul, [facility] [place] [facility] [address] [id number] [place] [address]- 5613 Jul, 2014 [facility] [place] [facility] [address] [id number] [place] [address]- 7226 Jul, 2014 [facility] [place] [facility] [address] [id number] [place] [address]- 8873 Jul, 2014 [facility] [place] [facility] [address] [id number] [place] [address]- 7503 Jul, [facility] [place] [facility] [address] [id number] [place] [address]- 5546 Jul, [facility] [place] [facility] [address] [id number] [place] [address]- 2112 Jun, [facility] [place] [facility] [address] [id number] [place] [address]- 6178 Jun, [facility] [address] [id number] [place] [address]- 1256 Jun, [facility] [place] [facility] [address] [id number] [place] [address]- 6596 Jun, [facility] [address] [id number] [place] [address]- 0708 Jun, [facility] [place] [facility] [address] [id number] [place] [address]- 5769 Jun, [facility] [address] [id number] [place] [address]- 1162 Jun, [facility] [address] [id number] [place] [address]- 7741 Jun, [facility] [address] [id number] [place] [address]- 5554 May, [facility] [address] [id number] [place] [address]- 0894 May, [facility] [address] [id number] [place] [address]- 8969 18 May, 2014 [facility] [address] [id number] [place] [address]- 3047 18 May, 2014 [facility] [place] [facility] [address] [id number] [place] [address]- 7533 15 May, 2014 [facility] [address] [id number] [place] [address]- 6460 15 May, 2014 [facility] [place] [facility] [address] [id number] [place] [address]- 7055 May, [facility] [place] [facility] [address] [id number] [place] [address]- 0674 May, [facility] [place] [facility] [address] [id number] [place] [address]- 0106 May, [facility] [place] [facility] [address] [id number] [place] [address]- 4894 May, [facility] [place] [facility] [address] [id number] [place] [address]- 1651 May, [facility] [place] [facility] [address] [id number] [place] [address]- 5369 May, [facility] [place] [facility] [address] [id number] [place] [address]- 4320 Apr, [facility] [place] [facility] [address] [id number] [place] [address]- 3033 Apr, [facility] [place] [facility] [address] [id number] [place] [address]- 2798 Apr, [facility] [place] [facility] [address] [id number] [place] [address]- 3770 Apr, [facility] [place] [facility] [address] [id number] [place] [address]- 2490 Apr, [facility] [place] [facility] [address] [id number] [place] [address]- 8743 Apr, [facility] [place] [facility] [address] [id number] [place] [address]- 4264 Apr, [facility] [place] [facility] [address] [id number] [place] [address]- 8199 Apr, [facility] [place] [facility] [address] [id number] [address]- 3515 Apr, [facility] [place] [facility] [address] [id number] [place] [address]- 3969 Apr, [facility] [place] [facility] [address] [id number] [place] [address]- 2861 Apr, [facility] [place] [facility] [address] [id number] [address]- 5831 Apr, [facility] [place] [facility] [address] [id number] [place] [address]- 1745 Mar, [facility] [place] [facility] [address] [id number] [place] [address]- 4303 Mar, [facility] [place] [facility] [address] [id number] [place] [address]- 3629 Mar, [facility] [place] [facility] [address] [id number] [place] [address]- 1830 Mar, [facility] [place] [facility] [address] [id number] [place] [address]- 3536 Feb, [facility] [place] [facility] [address] [id number] [place] [address]- 1912 Feb, [facility] [place] [facility] [address] [id number] [place] [address]- 6676 05 Feb, 2014 [facility] [place] [facility] [address] [id number] [place] [address]- 9377 Feb, [facility] [place] [facility] [address] [id number] [place] [address]- 6501 Feb, [facility] [place] [facility] [address] [id number] [place] [address]- 9021 Feb, [facility] [place] [facility] [address] [id number] [place] [address]- 7936 Jan, [facility] [place] [facility] [address] [id number] [place] [address]- 2275 Jan, [facility] [place] [facility] [address] [id number] [place] [address]- 3521 Jan, [facility] [place] [facility] [address] [id number] [place] [address]- 2266 Jan, [facility] [place] [facility] [address] [id number] [place] [address]- 7476 Jan, [facility] [place] [facility] [address] [id number] [place] [address]- 8398 Jan, [facility] [place] [facility] [address] [id number] [place] [address]- 9006 Jan, 2013 [facility] [place] [facility] [address] [id number] [place] [address]- 9893 Jan, [facility] [place] [facility] [address] [id number] [place] 7076 Jan, [facility] [place] [facility] [address] [id number] [place] [address]- 9968 Jan, [facility] [place] [facility] [address] [id number] [place] [address]- 8273 Jan, [facility] [place] [facility] [address] [id number] [place] [address]- 1889 Jan, [facility] [place] [facility] [address] [id number] [place] [address]- 4512 Jan, [facility] [place] [facility] [address] [id number] [place] [address]- 4829 Jan, [facility] [place] [facility] [address] [id number] [place] [address]- 0479 Dec, [facility] [place] [facility] [address] [id number] [place] [address]- 2809 Dec, [facility] [place] [facility] [address] [id number] [place] [address]- 2920 Dec, [facility] [place] [facility] [address] [id number] [place] [address]- 9323 Dec, [facility] [place] [facility] [address] [id number] [place] [address]- 5534 Nov, [facility] [place] [facility] [address] [id number] [place] [address]- 0827 Nov, [facility] [place] [facility] [address] [id number] [place] [address]- 5749 Nov, [facility] [place] [facility] [address] [id number] [place] [address]- 7377 Nov, [facility] [place] [facility] [address] [id number] [place] [address]- 5036 Nov, [facility] [place] [facility] [address] [id number] [place] [address]- 0068 October, [facility] [place] [facility] [address] [id number] [place] [address]- 6312 October, [facility] [place] [facility] [address] [id number] [place] [address]- 0550 October, [facility] [place] [facility] [address] [id number] [place] [address]- 1604 October, [facility] [place] [facility] [address] [id number] [place] [address]- 3372 October, [facility] [place] [facility] [address] [id number] [place] [address]- 4594 October, [facility] [place] [facility] [address] [id number] [place] [address]- 6333 October, [facility] [place] [facility] [address] [id number] [place] [address]- 2268 October, [facility] [place] [facility] [address] [id number] [place] [address]- 0905 October, [facility] [place] [facility] [address] [id number] [place] [address]- 0649 October, [facility] [place] [facility] [address] [id number] [place] [address]- 5129 October, [facility] [place] [facility] [address] [id number] [place] [address]- 7708 October, [facility] [place] [facility] [address] [id number] [place] [address]- 7733 October, [facility] [place] [facility] [address] [id number] [place] [address]- 7420 October, [facility] [place] [facility] [address] [id number] [place] [address]- 2109 17 Sep, 2013 [facility] [place] [facility] [address] [id number] [place] [address]- 1749 17 Sep, 2013 [facility] [place] [facility] [address] [id number] [place] [address]- 3782 Sep, [facility] [place] [facility] [address] [id number] [place] [address]- 7102 Sep, [facility] [place] [facility] [address] [id number] [place] [address]- 3905 Sep, [facility] [place] [facility] [address] [id number] [place] [address]- 2361 Sep, [facility] [place] [facility] [address] [id number] [place] [address]- 1500 Sep, [facility] [place] [facility] [address] [id number] [place] [address]- 1938 Sep, [facility] [place] [facility] [address] [id number] [place] [address]- 7953 Sep, [facility] [place] [facility] [address] [id number] [place] [address]- 2418 Sep, [facility] [place] [facility] [address] [id number] [place] [address]- 0397 Sep, [facility] [place] [facility] [address] [id number] [place] [address]- 1562 Sep, [facility] [place] [facility] [address] [id number] [place] [address]- 8582 Sep, [facility] [place] [facility] [address] [id number] [place] [address]- 9914 Sep, [facility] [place] [facility] [address] [id number] [place] [address]- 8340 Sep, [facility] [place] [facility] [address] [id number] [place] [address]- 7159 Aug, [facility] [place] [facility] [address] [id number] [place] [address]- 4965 Aug, [facility] [place] [facility] [address] [id number] [place] [address]- 7561 Aug, [facility] [place] [facility] [address] [id number] [place] [address]- 9238 Aug, [facility] [place] [facility] [address] [id number] [place] [address]- 3221 Jul, [facility] [place] [facility] [address] [id number] [place] [address]- 4385 Jul, [facility] [place] [facility] [address] [id number] [place] [address]- 8510 Jul, [facility] [place] [facility] [address] [id number] [place] [address]- 6307 Jul, [facility] [place] [facility] [address] [id number] [place] [address]- 3178 Jun, [facility] [place] [facility] [address] [id number] [place] [address]- 6717 Jun, [facility] [place] [facility] [address] [id number] [place] [address]- 1080 Jun, [facility] [place] [facility] [address] [id number] [place] [address]- 9144 Jun, [facility] [place] [facility] [address] [id number] [place] [address]- 3706 Jun, [facility] [place] [facility] [address] [id number] [place] [address]- 9687 Jun, [facility] [place] [facility] [address] [id number] [place] [address]- 3376 Jun, [facility] [place] [facility] [address] [id number] [place] [address]- 8301 Jun, [facility] [place] [facility] [address] [id number] [address]- 3984 20 May, 2013 [facility] [place] [facility] [address] [id number] [place] [address]- 4216 20 May, 2013 [facility] [place] [facility] [address] [id number] [place] 3091 18 May, 2013 [facility] [place] [facility] [address] [id number] [place] 1812 18 May, 2013 [facility] [place] [facility] [address] [id number] [place] [address]- 2715 17 May, 2013 [facility] [place] [facility] [address] [id number] [place] [id number] 17 May, 2013 [facility] [place] [facility] [address] [id number] [place] [address]- 6598 17 May, 2013 [facility] [place] [facility] [address] [id number] [place] [address]- 6386 17 May, 2013 [facility] [place] [facility] [address] [id number] [place] [address]- 6721 16 May, 2013 [facility] [place] [facility] [address] [id number] [place] [address]- 1835 16 May, 2013 [facility] [place] [facility] [address] [id number] [place] [address]- 0900 14 May, 2013 [facility] [place] [facility] [address] [id number] [place] [address]- 1846 14 May, 2013 [facility] [place] [facility] [address] [id number] [place] [address]- 4986 13 May, 2013 [facility] [place] [facility] [address] [id number] [place] [address]- 7963 13 May, 2013 [facility] [place] [facility] [address] [id number] [place] 6743 12 May, 2013 [facility] [place] [facility] [address] [id number] [place] [address]- 8661 12 May, 2013 [facility] [place] [facility] [address] [id number] [place] [address]- 1134 May, [facility] [address] [id number] [place] [address]- 6926 May, [facility] [address] [id number] [place] [address]- 4969 Apr, [facility] [address] [id number] [place] [address]- 7243 Apr, [facility] [address] [id number] [place] [address]- 8986 Apr, [facility] [address] [id number] [place] [address]- 6119 Apr, [facility] [address] [id number] [place] [address]- 2922 Aug, [facility] [address] [id number] [place] [address]- 7664 Aug, [facility] [address] [id number] [place] [address]- 0152 Aug, [facility] [address] [id number] [place] [address]- 5336 Aug, [facility] [address] [id number] [place] [address]- 0658 Jul, [facility] [address] [id number] [place] [address]- 4952 Jun, [facility] [address] [id number] [place] [address]- 5675 Jun, [facility] [address] [id number] [place] [address]- 2546 Jun, [facility] [address] [id number] [place] [address]- 2546 Jun, [facility] [address] [id number] [place] [address]- 8485 May, [facility] [place] [facility] [address] [id number] [place] [address]- 7875 May, [facility] [place] [facility] [address] [id number] [place] [address]- 7916 May, [facility] [place] [facility] [address] [id number] [place] 4327 May, [facility] [place] [facility] [address] [id number] [place] [address]- 7348 May, [facility] [place] [facility] [address] [id number] [place] [address] May, [facility] [place] [facility] [address] [id number] [place] [address] May, [facility] [place] [facility] [address] [facility] [place] [id number] [place] [address] Apr, [facility] [place] [facility] [address] [id number] [place] [address] Apr, [facility] [place] [facility] [address] [id number] [place] [address] Apr, [facility] [place] [facility] [address] [facility] [place] [id number] [place] [address] Apr, [facility] [place] [facility] [address] [id number] [place] [address] Apr, [facility] [place] [facility] [address] [id number] [place] [address] Apr, [facility] [place] [facility] [address] [id number] [place] [address] Apr, [facility] [place] [facility] [address] [id number] [place] [address] Mar, [facility] [place] [facility] [address] [id number] [place] [address] Mar, [facility] [place] [facility] [address] [id number] [place] [address]- [address] 19 Mar, 2012 [facility] [place] [facility] [address] [id number] [place] [address]285 Mar, 2011 [facility] [place] [facility] [address] [id number] [place] [address] Mar, [facility] [place] [facility] [address] [id number] [place] [address]- [address]233 Mar, [facility] [place] [facility] [address] [id number] [place] [address]- 0669 Mar, [facility] [place] [facility] [address] [id number] [place] [address] Mar, [facility] [place] [facility] [address] [id number] [place] [address]- [address] Mar, [facility] [place] [facility] [address] [id number] [place] [address]- [address]243 Mar, [facility] [place] [facility] [address] [id number] [place] [address]- 5649 Mar, [facility] [place] [facility] [address] [id number] [place] [address] 3731 Mar, [facility] [place] [facility] [address] [facility] [place] [id number] [place] [address] Feb, [facility] [place] [facility] [address] [id number] [place] [address]- [address] Jan, [facility] [place] [facility] [address] [id number] [place] [address]- 9549 Jan, [facility] [place] [facility] [address] [id number] [place] [address]662 Jan, [facility] [place] [facility] [address] [id number] [place] [address] Jan, [facility] [place] [facility] [address] [facility] [place] [id number] [place] [address] Jan, [facility] [place] [facility] [address] [id number] [place] [address]257 Dec, [facility] [place] [facility] [address] [id number] [place] [address]- [address] Dec, [facility] [place] [facility] [address] [id number] [place] [address] Nov, [facility] [place] [facility] [address] [id number] [place] [address] Nov, [facility] [place] [facility] [address] [id number] [place] [address] 7715 Nov, [facility] [place] [facility] [address] [id number] [place] [address] October, [facility] [address] [id number] [place] [address] October, [facility] [address] [id number] [place] [address] 16[address] October, [facility] [address] [id number] [place] [address] 34[address] October, [facility] [place] [facility] [address] [id number] [place] [address] October, [facility] [place] [facility] [address] [id number] [place] [address] October, [facility] [place] [facility] [address] [id number] [place] [address]- 6667 October, [facility] [place] [facility] [address] [id number] [place] [address]60 Sep, [facility] [place] [facility] [address] [id number] [place] [address] 1488 Sep, [facility] [place] [facility] [address] [id number] [place] [address] 8214 Sep, [facility] [place] [facility] [address] [id number] [place] [address]- 7291 25 Sep, 2011 [facility] [place] [facility] [address] [id number] [place] [address]- 4686 24 Sep, 2011 [facility] [place] [facility] [address] [id number] [place] [address]- 6627 19 Sep, 2011 [facility] [place] [facility] [address] [id number] [place] [address]- 3136 17 Sep, 2011 [facility] [place] [facility] [address] [id number] [place] [address]- 6525 16 Sep, 2011 [facility] [place] [facility] [address] [id number] [place] [address]- 5248 16 Sep, 2011 [facility] [place] [facility] [address] [id number] [place] [address]- 4572 14 Sep, 2011 [facility] [place] [facility] [address] [id number] [place] [address]- 0465 13 Sep, 2011 [facility] [place] [facility] [address] [id number] [place] [address]- [address]504 10 Sep, 2011 [facility] [place] [facility] [address] [id number] [place] [address]- 8373 09 Sep, 2011 [facility] [place] [facility] [address] [id number] [place] [address]- 7291 27 Aug, 2011 [facility] [place] [facility] [address] [id number] [place] [address]- 2474 12 Aug, 2011 [facility] [place] [facility] [address] [id number] [place] [address]- 1551 08 Aug, 2011 [facility] [place] [facility] [address] [id number] [place] [address]- 2865 06 Aug, 2011 [facility] [place] [facility] [address] [id number] [place] [address]- 2790 28 Jul, 2011 [facility] [place] [facility] [address] [id number] [place] [address]- 2777 Jul, [facility] [place] [facility] [address] [id number] [place] [address]- 4892 16 Jul, 2011 [facility] [address] [id number] [place] [address]- 9876 15 Jul, 2011 [facility] [place] [facility] [address] [id number] [place] [address]- 6136 14 Jul, 2011 [facility] [place] [facility] [address] [id number] [place] [address]- 0326 10 Jul, 2011 [facility] [place] [facility] [address] [id number] [place] [address]- 9031 30 Jun, 2011 [facility] [place] [facility] [address] [id number] [place] [address]- 0788 05 Jun, 2011 [facility] [address] [id number] [place] [address]- 3779 Jun, [facility] [address] [id number] [place] [address]- 4178 Jun, [facility] [address] [id number] [place] [address] Jun, [facility] [address] [id number] [place] [address] May, [facility] [address] [id number] [place] [address] May, [facility] [place] [facility] [address] [id number] [place] [address] 14 May, 2011 [facility] [place] [facility] [address] [id number] [place] [address] 14 May, 2011 [facility] [place] [facility] [address] [id number] [place] [address] 12 May, 2011 [facility] [place] [facility] [address] [id number] [place] [address]46 07 May, 2011 [facility] [place] [facility] [address] [id number] [place] [address] May, [facility] [place] [facility] [address] [id number] [place] [address] Apr, [facility] [place] [facility] [address] [id number] [place] [address] Apr, [facility] [place] [facility] [address] [id number] [place] [address] Apr, [facility] [place] [facility] [address] [id number] [place] [address] Apr, [facility] [place] [facility] [address] [id number] [place] [address] Apr, [facility] [place] [facility] [address] [id number] [place] [address] Apr, [facility] [place] [facility] [address] [id number] [place] [address] Mar, [facility] [place] [facility] [address] [id number] [place] [address] Mar, [facility] [place] [facility] [address] [id number] [place] [address] Mar, [facility] [place] [facility] [address] [id number] [place] [address] Mar, [facility] [place] [facility] [address] [id number] [address] Jan, [facility] [place] [facility] [address] [id number] [place] [address] Dec, [facility] [place] [facility] [address] [id number] [place] [address] Dec, [facility] [place] [facility] [address] [id number] [place] [address] October, [facility] [place] [facility] [address] [id number] [place] [address] Sep, [facility] [place] [facility] [address] [id number] [place] [address] 14 Sep, 2010 [facility] [address] [id number] [place] [address]226 17 Jul, 2010 [facility] [address] [id number] [place] [address] 2546 16 Jul, 2010 [facility] [address] [id number] [place] [address] 31 May, 2010 [facility] [place] [facility] [address] [id number] [place] [address] 2544 27 May, 2010 [facility] [address] [id number] [place] [address], [place] [address] 08 May, 2010 [facility] [address] [id number] [place] [address] 06 May, 2010 [facility] [address] [id number] [place] [address] Apr, [facility] [address] [id number] [place] [address] Apr, [facility] [address] [id number] [place] [address] Apr[facility] [address] [facility] [place] [place] [id number] [place] [address] 18 Apr, 2010 [facility] [place] [facility] [address] [id number] [place] [address] 2548 Apr, [facility] [place] [facility] [address] [id number] [place] [address] 21 Mar, 2010 [facility] [place] [facility] [address] [id number] [place] [address] 14 Mar, 2010 [facility] [place] [facility] [address] [id number] [place] [address] 13 Mar, 2010 [facility] [place] [facility] [address] [id number] [place] [address] Mar, [facility] [address] [facility] [place] [id number] [address] Jan, [facility] [address] [facility] [place] [id number] [place] [address] Dec, [facility] [address] [address] [address] Sep, [facility] [address]00565[address] [address] May, [facility] [address] [facility] [place] [id number] [place] [address] May, [facility] [address]65[address] [address] [address] May, [facility] [address]65100[place] [address] Apr, [facility] [address]65[address] [address] Apr, [facility] [address]00565100[place] [address] Apr, [facility] [address] [id number] [address] Apr, [facility] [address]65100[place] [address] Apr, [facility] [address] [id number] [address] Mar, [facility] [address] [id number] [address] Mar, [facility] [address] [id number] [address] Jul, IMMUNIZATIONS No Known Immunizations SOCIAL HISTORY Never Assessed REASON FOR VISIT EMR-[facility] PLAN OF CARE VITAL SIGNS MEDICATIONS Unknown [...] January before. 03/2018 Hospitalization History Cellulitis-[facility] 12/20/15 Hospital[facility] History [facility] [place]- Abd pain 03/07/2017 Hospital[facility] History [facility] [place]- Abd pain 03/14/2017 Hospital[facility] [place]- No bowel movement, rash 04/13/2017 Hospitalization History [facility] [place]- Abd pain r/t kidney surgery on 04/17/2017 Hospitalization History [facility] [place]- Abd pain r/t kidney surgery on 04/18/2017 Hospitalization History [facility] [place]- Lower abd pain 04/30/2017 Hospitalization History [facility] [place]- Cannot urinate 05/30/2017 Hospitalization History [facility] [place]- Pancreatitis Sx 06/29/2017 Hospitalization History [facility] [place]- Stomach pain 07/22/2017 Hospitalization History [facility] [place]- Left side pain 08/12/2017 Hospitalization History [facility] [place]- Incision site infection 08/30/2017 Hospitalization History [facility]- Post Op Seroma/Hematoma Left Abdomen. Discharged 09/04/17- Dr Daniel 09/02/2017 Hospitalization History [facility] [place]- Right shoulder and back pain 2017 Hospitalization History [facility] [place]- Shoulder/Back pain 11/11/2017 [facility] History [facility] [place]- Right shoulder blade pain 12/04/2017 Hospitalization History [facility] [place]- C-Diff 12/13/2017 Hospitalization History C diff et MRSA 12/27/2017
--- OUTSIDE RECORDS SUMMARY | 2018-10-27 13:08 | XMS REPORT ---
Author Author Migration, Doctor Organization [facility] Address Unknown Phone Unavailable Care Team Providers Care Web Editor Name Role Phone Migration, Doctor Unavailable Unavailable PROBLEMS Type Condition ICD9-CM Code UCS59-UK Code Onset Dates Condition Status SNOMED Code Problem Chronic tension-type headache, intractable G44.221 Active 453970516 Problem Right carpal tunnel syndrome G56.01 Active 973268753156308 Problem Hyperlipidemia, mixed E78.2 Active 937323496 Problem Morbid (severe) obesity due to excess calories E66.01 Active 694493719 Problem FH: polycystic ovary Z84.2 Active 207475647 Problem Hirsuties L68.0 Active 866603595 Problem Asthma J45.909 Active 768630292 Problem Chronic pancreatitis K86.1 Active 389798910 Problem Trichotillomania F63.3 Active 48848692 Problem Restless leg syndrome G25.81 Active 81277084 Problem Generalized social phobia F40.11 Active 71405912 Problem Primary osteoarthritis of right knee M17.11 Active 575229356101339 Problem Atelectasis J98.11 Active 33876510 Problem History of renal cell carcinoma Z85.528 Active 384771279 Problem Obesities, morbid E66.01 Active 932526798 Problem Polydipsia R63.1 Active 35079155 Problem Nodule of left lung R91.1 Active 155380048 Problem Chronic post-traumatic stress disorder (PTSD) F43.12 Active 464779815 Problem Moderate episode of recurrent major depressive disorder F33.1 Active 909269594 Problem Chronic fatigue R53.82 Active 63946545 Problem Intestinal malabsorption, unspecified K90.9 Active 59241044 ALLERGIES No Information ENCOUNTERS Encounter Location Date Diagnosis [facility] [place] [id number], [place] [address] October, [facility] [place] [address] [facility] [id number], [place] [address] October, [facility] [place] [address], [place] [address] October, [facility] [address] [place] [address] Sep, [facility] [place] [address] [facility] [id number], [place] [address] Sep, [facility] [place] [address], [place] [address] Sep, [facility] [place] [id number] [place] [address] 44534- 4178 Sep, [facility] [place] [id number] [place] [address] 77584- 4936 Sep, Lower extremity edema R60.0 [facility] [place] [address], [place] [address] Sep, [facility] [id number] [place] [address] 16503 [address] Sep, Lower extremity edema R60.0 and Morbid obesity E66.01 [facility] [place] [address], [place] [address] Sep, [facility] [place] [id number] [place] [address] 68665- 8830 Sep, [facility] [place] [address], [place] [address] Aug, [facility] [place] [address], [place] [address] Aug, Obesities, morbid E66.01 and Morbid obesity E66.01 [facility] [place] [address], [place] [address] Aug, [facility] [address] [address] Jul, [facility] [place] [address], [place] [address] Jul, [facility] [place] [id number] [place] [address] 38562- 3538 Jul, [facility] [place] [id number] [place] [address] 44579- 7591 Jul, Numbness of right hand R20.0 [facility] [place] [id number] [place] [address] 64936- 4811 Jul, [facility] [place] [id number] [place] [address] 10042- 9735 Jul, Numbness of right hand R20.0 [facility] [place] [id number] [place] [address] 84922- 6543 Jul, [facility] [place] [id number] [place] [address] 77931- 1469 Jul, [facility] [place] [id number] [place] [address] 82923- 2425 Jul, Right-sided thoracic back pain M54.6 [facility] [place] [id number] [place] [address] 67215- 1014 Jul, [facility] [place] [id number] [place] [address] 20115- 0975 Jul, [facility] [place] [id number] [place] [address] 65025- 4344 Jul, [facility] [place] [id number] [place] [address] 99624- 5923 Jul, [facility] [place] [id number] [place] [address] 44855- 8144 Jun, [facility] [place] [id number] [place] [address] 74010- 3774 Jun, Acute pain of right shoulder M25.511 ; Numbness of right hand R20.0 and Trapezius muscle spasm M62.838 [facility] [place] [id number] [place] [address] 79838- 7994 Jun, [facility] [place] [id number] [place] [address] 03870- 3955 Jun, [facility] [place] [id number] [place] [address] 31264- 6224 Jun, Cough R05 ; BMI 50.0-59.9, adult Z68.43 and Morbid obesity E66.01 [facility] [place] [address] [address] Jun, [facility] [place] [id number] [place] [address] 08883- 1679 Jun, [facility] [id number] [place] [address] 11953 -6979 Jun, BMI 45.0-49.9, adult Z68.42 and Acute non-recurrent maxillary sinusitis J01.00 [facility] [id number] [place] [address] 08872 -9383 Jun, Acute sinusitis J01.90 ; Dysuria R30.0 and BMI 45.0-49.9, adult Z68.42 [facility] [place] [id number] [place] [address] 41769- 6074 Jun, [facility] [place] [id number] [place] [address] 64444- 4973 Jun, [facility] [place] [id number] [place] [address] 46909- 4731 May, [facility] [place] [id number] [place] [address] 44212- 3089 May, [facility] [place] [id number] [place] [address] 82955- 8236 May, [facility] [place] [id number] [place] [address] 48803- 5078 May, [facility] [place] [address] 79940- [address] May, [id number] [place] [address] 47201- 5441 Apr, Generalized social phobia F40.11 ; Trichotillomania F63.3 ; Chronic post-traumatic stress disorder (PTSD) F43.12 and BMI 45.0-49.9, adult Z68.42 [address] 02851- 2087 Apr, [address] 65825- 8416 Apr, Chronic tension-type headache, intractable G44.221 [address] 07218- 0864 Apr, [facility] [address] [place] [address] 35444 -1519 Mar, [facility] [address] 7[address]24 -[address]03 Mar, BMI 45.0-49.9, adult Z68.42 and Pimples R23.8 [id number] [place] [address] 83731- 2741 Mar, [place] [id number] [place] [address] 87422- 6662 Mar, [place] [id number] [place] [address] 35742- 5859 Mar, Decreased urination R34 ; Chronic fatigue R53.82 ; Peripheral edema R60.9 ; Diarrhea, unspecified type R19.7 ; Non-intractable vomiting with nausea, unspecified vomiting type R11.2 ; BMI 45.0-49.9, adult Z68.42 and Chronic post-traumatic stress disorder (PTSD) F43.12 [address] [place] [id number] [place] [address] 82665- 8974 Mar, Intestinal malabsorption, unspecified K90.9 ; Diarrhea, unspecified R19.7 ; Urinary urgency R39.15 ; Rectal bleeding K62.5 and Decreased urine output R34 [facility] [place] [id number] [place] [address] 66352- 2959 Mar, Decreased urine output R34 [facility] [place] [id number] [place] [address] 30898- 5059 Mar, Rectal bleeding K62.5 [facility] [place] [address] 63402- 5604 Mar, Rectal bleeding K62.5 [facility] [place] [id number] [place] [address] 38299- 7287 Mar, Urinary urgency R39.15 [facility] [place] [id number] [place] [address] 51283- 5742 Mar, Urinary urgency R39.15 [address] [place] [id number] [place] [address] 33076- 3006 Mar, Primary osteoarthritis of right knee M17.11 and BMI 45.0- 49.9, adult Z68.42 [address] [place] [id number] [place] [address] 41559- 0330 Mar, [facility] [place] [id number] [place] [address] 04212- 5149 Feb, Left upper arm pain M79.622 [facility] [place] [id number] [place] [address] 10853- 6221 Feb, [facility] [place] [id number] [place] [address] 62207- 0505 Jan, Acute pain of right knee M25.561 ; Right upper quadrant abdominal pain R10.11 and BMI 45.0-49.9, adult Z68.42 [facility] [place] [id number] [place] [address] 50424- 6348 Jan, [facility] [place] [id number] [place] [address] 07190- 2920 Jan, [facility] [place] [address], [place] [address]- [address] Dec, [facility] [place] [id number] [place] [address] 56637- 3732 Dec, Intestinal malabsorption, unspecified K90.9 and Diarrhea, unspecified R19.7 [facility] [place] [id number] [place] [address] 20600- 6943 Dec, [facility] [place] [id number] [place] [address] 95109- 1532 Dec, Strep throat J02.0 ; Intestinal malabsorption, unspecified K90.9 ; Diarrhea, unspecified R19.7 ; Postoperative seroma involving digestive system after non-digestive system procedure K91.873 ; Hyperlipidemia, mixed E78.2 and BMI 45.0-49.9, adult Z68.42 [facility] [place] [id number] [place] [address] 10971- 6577 Dec, [facility] [place] [id number] [place] [address] 81720- 9313 Dec, Nausea R11.0 [facility] [place] [id number] [place] [address] 90379- 0585 Dec, [facility] [address], [place] [address] Dec, Sore throat J02.9 ; Strep throat J02.0 and BMI 45.0-49.9, adult Z68.42 [facility] [place] [address], [place] [address]- 0369 Dec, [facility] [place] [id number] [place] [address] 10538- 9144 Dec, [facility] [place] [address], [place] [address]- 9976 Dec, [facility] [place] [id number] [place] [address] 22456- 8322 Dec, [facility] [place] [address], [place] [address]- 2879 Dec, [facility] [place] [id number] [place] [address] 19394- 9429 Dec, [facility] [place] [address] [place] [address] 41522- 4277 Dec, [facility] [place] [id number] [place] [address] 30806- 6029 Dec, [facility] [place] [address] [place] [address] 93497- 3067 Dec, Clostridium difficile colitis A04.72 ; Intractable vomiting with nausea, unspecified vomiting type R11.2 and BMI 45.0-49.9, adult Z68.42 [facility] [place] [id number] [place] [address] 89047- 3618 Dec, [facility] [place] [id number], [place] [address]- 5157 Nov, [facility] [place] [id number] [place] [address] 57933- 0515 Nov, [facility] [place] [id number] [place] [address] 24264- 7044 Nov, [facility] [place] [address] [place] [address] 74754- 0835 Nov, [facility] [address], [place] [address] Nov, [facility] [place] [id number] [place] [address] 45367- 8297 Nov, Hyperlipidemia, mixed E78.2 [facility] [address], [place] [address] Nov, Acute suppurative otitis media of right ear without spontaneous rupture of tympanic membrane, recurrence not specified H66.001 and BMI 45.0-49.9, adult Z68.42 [address] [address], [place] [address]- 2105 Nov, Hyperlipidemia, mixed E78.2 [place] [id number] [place] [address] 14132- 4749 Nov, [place] [id number] [place] [address] 29077- 3165 Nov, [place] [id number] [place] [address] 77031- 7050 Nov, Nodule of left lung R91.1 [address] [id number] [place] [address] 36720- 8112 Nov, Medicare annual wellness visit, initial Z00.00 [...] adult Z68.42 and Encounter for immunization Z23 [place] [address] [place] [address] 03244- 9212 October, [place] [id number] [place] [address] 51119- 7659 October, Nodule of left lung R91.1 [place] [id number] [place] [address] 96806- 4943 October, Nodule of left lung R91.1 [place] [address] [place] [address] 59500- 2252 October, Recurrent major depressive disorder, in partial remission F33.41 ; Restless leg syndrome G25.81 ; Generalized social phobia F40.11 ; Chronic post-traumatic stress disorder (PTSD) F43.12 ; BMI 45.0-49.9, adult Z68.42 and Trichotillomania F63.3 [place] [id number] [place] [address] 92635- 1858 October, [facility] [place] [id number] [place] [address] 56375- 7479 Sep, Chronic fatigue R53.82 and BMI 45.0-49.9, adult Z68.42 [place] [id number] [place] [address] 75925- 0891 Aug, [place] [id number] [place] [address] 93328- 1749 Jul, Restless leg syndrome G25.81 and B12 deficiency E53.8 [place] [address] 57268- 2496 Jul, [place] [address] 30274- 2347 Jul, [place] [id number] [place] [address] 18526- 5804 Jun, [place] [id number] [place] [address] 02727- 6009 Jun, Fatigue, unspecified type R53.83 ; History of renal cell carcinoma Z85.528 ; Chronic pancreatitis K86.1 ; Restless leg syndrome G25.81 ; Dark urine R82.99 and BMI 45.0-49.9, adult Z68.42 [place] [id number] [place] [address] 53127- 7832 Jun, [place] [address] 75279- 1520 Jun, [facility] [place] [id number] [place] [address] 00739- 5829 Jun, [place] [id number] [place] [address] 57268- 7732 Jun, [place] [address], [place] [address]- 4147 May, Chronic post-traumatic stress disorder (PTSD) F43.12 ; Moderate episode of recurrent major depressive disorder F33.1 ; Trichotillomania F63.3 and Generalized social phobia F40.11 [place] [id number] [place] [address] 54866- 0689 May, [place] [id number] [place] [address] 12801- 9995 May, Chronic post-traumatic stress disorder (PTSD) F43.12 ; Moderate episode of recurrent major depressive disorder F33.1 ; Trichotillomania F63.3 and Generalized social phobia F40.11 [place] [id number] [place] [address] 54580- 4028 May, Hyperlipidemia, mixed E78.2 ; Morbid (severe) obesity due to excess calories E66.01 ; Chronic post-traumatic stress disorder (PTSD) F43.12 ; Moderate episode of recurrent major depressive disorder F33.1 ; Trichotillomania F63.3 and Generalized social phobia F40.11 [place] [id number] [place] [address] 79499- 6845 Apr, [place] [address] [place] [address] 36733- 7851 Apr, Hyperlipidemia, mixed E78.2 ; Morbid (severe) obesity due to excess calories E66.01 ; Chronic post-traumatic stress disorder (PTSD) F43.12 ; Moderate episode of recurrent major depressive disorder F33.1 ; Trichotillomania F63.3 and Generalized social phobia F40.11 [place] [id number] [place] [address] 61293- 4623 Apr, Trichotillomania F63.3 ; Generalized social phobia F40.11 ; Chronic post-traumatic stress disorder (PTSD) F43.12 and Moderate episode of recurrent major depressive disorder F33.1 [place] [id number] [place] [address] 08623- 1211 Apr, [facility] [place] [id number] [place] [address] [phone]- [phone] Apr, [facility] [place] [id number] [place] [address] [phone]- 1446 Mar, Moderate episode of recurrent major depressive disorder F33.1 ; Trichotillomania F63.3 ; Chronic post-traumatic stress disorder (PTSD) F43.12 ; Generalized social phobia F40.11 and Restless leg syndrome G25.81 [facility] [place] [id number] [place] [address] [phone]- 0655 Mar, [facility] [place] [id number] [place] [address] [phone]- 1320 Mar, [place] [id number] [place] [address] 49227- 9146 Feb, Left kidney mass N28.89 [facility] [place] [id number] [place] [address] [phone]- 7496 Jan, [facility] [place] [id number] [place] [address] 07086- 3761 Dec, Polydipsia R63.1 ; Chronic pancreatitis K86.1 and Fatigue, unspecified type R53.83 [place] [id number] [place] [address] [phone]- 4858 Nov, [facility] [place] [id number] [place] [address] [phone]- [phone] Nov, [facility] [place] [id number] [place] [address] [phone]- 0454 Nov, Headache around the eyes R51 [facility] [place] [id number] [place] [address] 82117- 3298 Nov, [facility] [place] [id number] [place] [address] 05570- 3851 October, STD exposure Z20.2 [facility] [place] [id number] [place] [address] 01186- 2186 October, STD exposure Z20.2 [place] [id number] [place] [address] 84039- 6682 October, Chronic post-traumatic stress disorder (PTSD) F43.12 ; Generalized social phobia F40.11 ; Trichotillomania F63.3 and Restless leg syndrome G25.81 [facility] [place] [id number] [place] [address] [phone]- 8513 October, [place] [id number] [place] [address] [phone]- 5490 Sep, [facility] [place] [id number] [place] [address] 53380- 8868 Aug, [place] [id number] [place] [address] 88026- 8797 Aug, [facility] [place] [id number] [place] [address] 35438- 7928 Aug, Neck mass R22.1 [place] [id number] [place] [address] 02571- 5186 Aug, Atelectasis J98.11 [place] [id number] [place] [address] 86091- 8397 28 Jul, 2016 Hyperlipidemia, mixed E78.2 ; Atypical pneumonia J18.9 and Neck mass R22.1 [place] [id number] [place] [address] 38940- 8762 15 Jul, 2016 Hemoptysis R04.2 [place] [id number] [place] [address] 29634- 8203 08 Jul, 2016 Acute non-recurrent pansinusitis J01.40 ; Hemoptysis R04.2 ; Polydipsia R63.1 and Malaise R53.81 [facility] [id number] [place] [address] 63135 -9935 May, Other viral agents as the cause of diseases classified elsewhere B97.89 and Acute upper respiratory infection, unspecified J06.9 [facility] IN [place] [id number] [place] [address] 49126 -8960 Mar, Nausea R11.0 [facility] [place] [id number] [place] [address] 51865 -6342 Dec, Hives L50.9 [place] [address] 05412- 6354 Dec, [facility] WALK IN [address] 84160 -9085 Dec, Cutaneous abscess of limb, unspecified L02.419 ; Cellulitis of unspecified part of limb L03.119 ; Encounter for incision and drainage procedure Z01.89 and Encounter for recheck of abscess following incision and drainage Z09 [facility] [place] [id number] [place] [address] 62596 -1898 Dec, Abscess of leg, right L02.415 [place] [id number] [place] [address] 11570- 9626 Dec, Cellulitis of unspecified part of limb L03.119 and Cutaneous abscess of limb, unspecified L02.419 [place] [id number] [place] [address] 67634- 2810 Dec, [place] [id number] [place] [address] 62967- 6197 Dec, [facility] IN [place] [id number] [place] [address] 75155 -8806 Aug, [place] [id number] [place] [address] 88769- 3467 Aug, [facility] [place] [id number] [place] [address] 93432 -3776 Jul, Pain in unspecified wrist M25.539 and Back pain, thoracic M54.6 [facility] [id number] [place] [address] 19159 -6341 Jun, Strain of right wrist, initial encounter S66.911A [facility] [place] [id number] [place] [address] 63004- 3158 11 Jun, 2015 Chronic pancreatitis, unspecified pancreatitis type K86.1 ; Hirsuties L68.0 ; Morbid (severe) obesity due to excess calories E66.01 ; Chronic pancreatitis K86.1 and Asthma J45.909 [facility] [place] [id number] [place] [address] 41064- 0106 May, [place] [address] 75189- 9217 May, Hyperlipidemia, mixed E78.2 and Muscle spasm of back M62.830 [place] [address] 19098- 8205 Apr, [place] [id number] [place] [address] 52009- 8711 Apr, Torticollis M43.6 [facility] [place] [id number] [place] [address] 14931- 3460 Apr, Right-sided thoracic back pain M54.6 [facility] [place] [id number] [place] [address] 07188- 8899 Mar, Rash R21 [facility] [place] [id number] [place] [address] 02236- 8524 Mar, [place] [id number] [place] [address] 01381- 8309 Jan, [facility] [place] [address] 39742- 6624 Dec, [facility] [place] [id number] [place] [address] 81458- 9601 Dec, Urinary frequency 788.41 and Nocturia more than twice per night 788.43 [facility] [place] [address] [address]- 5957 Nov, [facility] [place] [id number] [place] [address] 00671- 5674 Nov, [facility] [place] [id number] [place] [address] 65930- 4313 Nov, Abdominal pain 789.00 [facility] [place] [id number] [place] [address] 03847- 7435 October, TDAP DX V06.1 [facility] [place] [id number] [place] [address] 33913- 5050 October, [facility] [place] [id number] [place] [address] 99551- 6082 October, Disturbance of skin sensation 782.0 ; Wrist pain, right 719.43 ; Hyperlipidemia 272.4 and Skin lesion of face 709.9 [facility] [place] [id number] [place] [address] 39105- 7603 Sep, [facility] [place] [id number] [place] [address] 86609- 1871 Sep, [facility] [place] [id number] [address]- 7762 Aug, [facility] [place] [address] [address]- 1253 Aug, [facility] [place] [address] [address]- 7309 Aug, [facility] [place] [id number] [place] [address] 25625- 4155 Aug, [facility] [place] [id number] [address]- 9573 Aug, [facility] [place] [id number] [place] [address] 83263- 4927 Aug, [facility] [place] [facility] [address] [id number] [place] [address]- 3778 14 Aug, 2014 [facility] [place] [facility] [address] [id number] [place] [address]- 2373 14 Aug, 2014 [facility] [place] [facility] [address] [id number] [place] [address]- 0703 Aug, [facility] [place] [facility] [address] [id number] [place] [address]- 4023 Aug, [facility] [place] [facility] [address] [id number] [place] [address]- 2604 Aug, [facility] [place] [facility] [address] [id number] [place] [address]- 9035 Aug, [facility] [place] [facility] [address] [id number] [place] [address]- 6707 Aug, [facility] [place] [facility] [address] [id number] [place] [address]- 5806 Aug, [facility] [place] [facility] [address] [id number] [place] [address]- 0059 Jul, [facility] [place] [facility] [address] [id number] [place] [address]- 9691 Jul, 2014 [facility] [place] [facility] [address] [id number] [place] [address]- 3717 Jul, 2014 [facility] [place] [facility] [address] [id number] [place] [address]- 8671 Jul, 2014 [facility] [place] [facility] [address] [id number] [place] [address]- 5542 Jul, [facility] [place] [facility] [address] [id number] [place] [address]- 0549 Jul, [facility] [place] [facility] [address] [id number] [place] [address]- 7764 Jun, [facility] [place] [facility] [address] [id number] [place] [address]- 5861 Jun, [facility] [address] [id number] [place] [address]- 5477 Jun, [facility] [place] [facility] [address] [id number] [place] [address]- 9338 Jun, [facility] [address] [id number] [place] [address]- 0668 Jun, [facility] [place] [facility] [address] [id number] [place] [address]- 2826 Jun, [facility] [address] [id number] [place] [address]- 8161 Jun, [facility] [address] [id number] [place] [address]- 2648 Jun, [facility] [address] [id number] [place] [address]- 7190 May, [facility] [address] [id number] [place] [address]- 0078 May, [facility] [address] [id number] [place] [address]- 8194 18 May, 2014 [facility] [address] [id number] [place] [address]- 4671 18 May, 2014 [facility] [place] [facility] [address] [id number] [place] [address]- 1743 15 May, 2014 [facility] [address] [id number] [place] [address]- 7762 15 May, 2014 [facility] [place] [facility] [address] [id number] [place] [address]- 9535 May, [facility] [place] [facility] [address] [id number] [place] [address]- 8882 May, [facility] [place] [facility] [address] [id number] [place] [address]- 5409 May, [facility] [place] [facility] [address] [id number] [place] [address]- 7575 May, [facility] [place] [facility] [address] [id number] [place] [address]- 8525 May, [facility] [place] [facility] [address] [id number] [place] [address]- 1345 May, [facility] [place] [facility] [address] [id number] [place] [address]- 0395 Apr, [facility] [place] [facility] [address] [id number] [place] [address]- 5997 Apr, [facility] [place] [facility] [address] [id number] [place] [address]- 6185 Apr, [facility] [place] [facility] [address] [id number] [place] [address]- 4073 Apr, [facility] [place] [facility] [address] [id number] [place] [address]- 7449 Apr, [facility] [place] [facility] [address] [id number] [place] [address]- 3526 Apr, [facility] [place] [facility] [address] [id number] [place] [address]- 5121 Apr, [facility] [place] [facility] [address] [id number] [place] [address]- 7560 Apr, [facility] [place] [facility] [address] [id number], [place] [address]- 8263 Apr, [facility] [place] [facility] [address] [id number] [place] [address]- 1839 Apr, [facility] [place] [facility] [address] [id number] [place] [address]- 4575 Apr, [facility] [place] [facility] [address] [id number], [place] [address]- 0590 Apr, [facility] [place] [facility] [address] [id number], [place] [address]- 5497 Mar, [facility] [place] [facility] [address] [id number] [place] [address]- 8767 Mar, [facility] [place] [facility] [address] [id number] [place] [address]- 4422 Mar, [facility] [place] [facility] [address] [id number] [place] [address]- 2218 Mar, [facility] [place] [facility] [address] [id number] [place] [address]- 6450 Feb, [facility] [place] [facility] [address] [id number] [place] [address]- 6331 Feb, [facility] [place] [facility] [address] [id number] [place] [address]- 8482 05 Feb, 2014 [facility] [place] [facility] [address] [id number] [place] [address]- 1017 Feb, [facility] [place] [facility] [address] [id number] [place] [address]- 5792 Feb, [facility] [place] [facility] [address] [id number] [place] [address]- 4416 Feb, [facility] [place] [facility] [address] [id number] [place] [address]- 7695 Jan, [facility] [place] [facility] [address] [id number] [place] [address]- 1506 Jan, [facility] [place] [facility] [address] [id number] [place] [address]- 9937 Jan, [facility] [place] [facility] [address] [id number] [place] [address]- 7005 Jan, [facility] [place] [facility] [address] [id number] [place] [address]- 3408 Jan, [facility] [place] [facility] [address] [id number] [place] [address]- 0563 Jan, [facility] [place] [facility] [address] [id number] [place] [address]- 2418 Jan, 2013 [facility] [place] [facility] [address] [id number] [place] [address]- 5634 Jan, [facility] [place] [facility] [address] [id number] [place] 9806 Jan, [facility] [place] [facility] [address] [id number] [place] [address]- 6829 Jan, [facility] [place] [facility] [address] [id number] [place] [address]- 0294 Jan, [facility] [place] [facility] [address] [id number] [place] [address]- 6179 Jan, [facility] [place] [facility] [address] [id number] [place] [address]- 8664 Jan, [facility] [place] [facility] [address] [id number] [place] [address]- 4259 Jan, [facility] [place] [facility] [address] [id number] [place] [address]- 7110 Dec, [facility] [place] [facility] [address] [id number] [place] [address]- 1310 Dec, [facility] [place] [facility] [address] [id number] [place] [address]- 8070 Dec, [facility] [place] [facility] [address] [id number] [place] [address]- 8899 Dec, [facility] [place] [facility] [address] [id number] [place] [address]- 7873 Nov, [facility] [place] [facility] [address] [id number] [place] [address]- 9024 Nov, [facility] [place] [facility] [address] [id number] [place] [address]- 2857 Nov, [facility] [place] [facility] [address] [id number] [place] [address]- 4420 Nov, [facility] [place] [facility] [address] [id number] [place] [address]- 8630 Nov, [facility] [place] [facility] [address] [id number] [place] [address]- 7315 October, [facility] [place] [facility] [address] [id number] [place] [address]- 1379 October, [facility] [place] [facility] [address] [id number] [place] [address]- 1558 October, [facility] [place] [facility] [address] [id number] [place] [address]- 8742 October, [facility] [place] [facility] [address] [id number] [place] [address]- 3525 October, [facility] [place] [facility] [address] [id number] [place] [address]- 9514 October, [facility] [place] [facility] [address] [id number] [place] [address]- 3668 October, [facility] [place] [facility] [address] [id number] [place] [address]- 2038 October, [facility] [place] [facility] [address] [id number] [place] [address]- 2366 October, [facility] [place] [facility] [address] [id number] [place] [address]- 1318 October, [facility] [place] [facility] [address] [id number] [place] [address]- 3171 October, [facility] [place] [facility] [address] [id number] [place] [address]- 3342 October, [facility] [place] [facility] [address] [id number] [place] [address]- 8751 October, [facility] [place] [facility] [address] [id number] [place] [address]- 8885 October, [facility] [place] [facility] [address] [id number] [place] [address]- 5213 17 Sep, 2013 [facility] [place] [facility] [address] [id number] [place] [address]- 5888 17 Sep, 2013 [facility] [place] [facility] [address] [id number] [place] [address]- 2261 Sep, [facility] [place] [facility] [address] [id number] [place] [address]- 9039 Sep, [facility] [place] [facility] [address] [id number] [place] [address]- 9473 Sep, [facility] [place] [facility] [address] [id number] [place] [address]- 9102 Sep, [facility] [place] [facility] [address] [id number] [place] [address]- 9400 Sep, [facility] [place] [facility] [address] [id number] [place] [address]- 6254 Sep, [facility] [place] [facility] [address] [id number] [place] [address]- 7039 Sep, [facility] [place] [facility] [address] [id number] [place] [address]- 9185 Sep, [facility] [place] [facility] [address] [id number] [place] [address]- 5056 Sep, [facility] [place] [facility] [address] [id number] [place] [address]- 9355 Sep, [facility] [place] [facility] [address] [id number] [place] [address]- 3254 Sep, [facility] [place] [facility] [address] [id number] [place] [address]- 9345 Sep, [facility] [place] [facility] [address] [id number] [place] [address]- 9696 Sep, [facility] [place] [facility] [address] [id number] [place] [address]- 0667 Aug, [facility] [place] [facility] [address] [id number] [place] [address]- 3452 Aug, [facility] [place] [facility] [address] [id number] [place] [address]- 9301 Aug, [facility] [place] [facility] [address] [id number] [place] [address]- 3832 Aug, [facility] [place] [facility] [address] [id number] [place] [address]- 3775 Jul, [facility] [place] [facility] [address] [id number] [place] [address]- 3407 Jul, [facility] [place] [facility] [address] [id number] [place] [address]- 9812 Jul, [facility] [place] [facility] [address] [id number] [place] [address]- 4556 Jul, [facility] [place] [facility] [address] [id number] [place] [address]- 9464 Jun, [facility] [place] [facility] [address] [id number] [place] [address]- 1507 Jun, [facility] [place] [facility] [address] [id number] [place] [address]- 1362 Jun, [facility] [place] [facility] [address] [id number] [place] [address]- 7133 Jun, [facility] [place] [facility] [address] [id number] [place] [address]- 7699 Jun, [facility] [place] [facility] [address] [id number] [place] [address]- 7157 Jun, [facility] [place] [facility] [address] [id number] [place] [address]- 9188 Jun, [facility] [place] [facility] [address] [id number] [place] [address]- 3657 Jun, [facility] [place] [facility] [address] [id number], [place] [address]- 9415 20 May, 2013 [facility] [place] [facility] [address] [id number] [place] [address]- 8629 20 May, 2013 [facility] [place] [facility] [address] [id number] [place] 1081 18 May, 2013 [facility] [place] [facility] [address] [id number] [place] 5901 18 May, 2013 [facility] [place] [facility] [address] [id number] [place] [address]- 8813 17 May, 2013 [facility] [place] [facility] [address] [id number] [id number] 17 May, 2013 [facility] [place] [facility] [address] [id number] [place] [address]- 9591 17 May, 2013 [facility] [place] [facility] [address] [id number] [place] [address] 17 May, 2013 [facility] [address] [id number] [place] [address] 16 May, 2013 [facility] [address] [id number] [place] [address] 16 May, 2013 [facility] [address] [id number] [place] [address] 14 May, 2013 [facility] [address] [id number] [place] [address] 14 May, 2013 [facility] [address] [id number] [place] [address] 13 May, 2013 [facility] [address] [id number] [place] [address] 13 May, 2013 [facility] [place] [facility] [address] [id number] [place] [address] 12 May, 2013 [facility] [address] [id number] [place] [address] 12 May, 2013 [facility] [place] [facility] [address] [id number] [place] [address] May, [facility] [address] [id number] [place] [address] May, [facility] [address] [id number] [place] [address] Apr, [facility] [address] [id number] [place] [address] Apr, [facility] [address] [id number] [place] [address] Apr, [facility] [address] [id number] [place] [address] 4080 Apr, [facility] [address] [id number] [place] [address] Aug, [facility] [address] [id number] [place] [address] Aug, [facility] [address] [id number] [place] [address] Aug, [facility] [address] [id number] [place] [address] Aug, [facility] [address] [id number] [place] [address] Jul, [facility] [address] [id number] [place] [address] Jun, [facility] [address] [id number] [place] [address]71 Jun, [facility] [address] [id number] [place] [address] Jun, [facility] [address] [id number] [place] [address] Jun, [facility] [address] [id number] [place] [address] May, [facility] [place] [facility] [address] [id number] [place] [address] May, [facility] [place] [facility] [address] [id number] [place] [address]27 May, [facility] [place] [facility] [address] [id number] [place] [address] May, [facility] [place] [facility] [address] [id number] [place] [address] May, [facility] [place] [facility] [address] [id number] [place] [address] May, [facility] [place] [facility] [address] [id number] [place] [address] May, [facility] [place] [facility] [address] [facility] [id number] [place] [address] Apr, [facility] [place] [facility] [address] [id number], [place] [address] Apr, [facility] [place] [facility] [address] [id number] [place] [address] Apr, [facility] [place] [facility] [address] [facility] [id number], [place] [address] Apr, [facility] [place] [facility] [address] [id number], [place] [address] Apr, [facility] [place] [facility] [address] [id number], [place] [address] Apr, [facility] [place] [facility] [address] [id number], [place] [address] Apr, [facility] [place] [facility] [address] [id number], [place] [address] Mar, [facility] [place] [facility] [address] [id number], [place] [address] Mar, [facility] [place] [facility] [address] [id number] [place] [address] 19 Mar, 2012 [facility] [place] [facility] [address] [id number] [place] [address]- [address] Mar, 2011 [facility] [place] [facility] [address] [id number] [place] [address] Mar, [facility] [place] [facility] [address] [id number] [place] [address]- [address] Mar, [facility] [place] [facility] [address] [id number] [place] [address]- [address] Mar, [facility] [place] [facility] [address] [id number] [place] [address] Mar, [facility] [place] [facility] [address] [id number] [place] [address]- [address] Mar, [facility] [place] [facility] [address] [id number] [place] [address] Mar, [facility] [place] [facility] [address] [id number] [place] [address]- [address]253 Mar, [facility] [place] [facility] [address] [id number] [place] [address] Mar, [facility] [place] [facility] [address] [facility] [id number] [place] [address] Feb, [facility] [place] [facility] [address] [id number] [place] [address]- 7916 Jan, [facility] [place] [facility] [address] [id number] [place] [address]- [address] Jan, [facility] [place] [facility] [address] [id number] [place] [address]- [address] Jan, [facility] [place] [facility] [address] [id number] [place] [address] Jan, [facility] [place] [facility] [address] [facility] [id number] [place] [address] Jan, [facility] [place] [facility] [address] [id number] [place] [address] Dec, [facility] [place] [facility] [address] [id number] [place] [address]60 Dec, [facility] [place] [facility] [address] [id number] [place] [address] Nov, [facility] [place] [facility] [address] [id number] [place] [address] Nov, [facility] [place] [facility] [address] [id number] [place] [address] Nov, [facility] [place] [facility] [address] [id number] [place] [address] October, [facility] [address] [id number] [place] [address] October, [facility] [address] [id number] [place] [address] October, [facility] [address] [id number] [place] [address] October, [facility] [place] [facility] [address] [id number] [place] [address] October, [facility] [place] [facility] [address] [id number] [place] [address] October, [facility] [place] [facility] [address] [id number] [place] [address] October, [facility] [place] [facility] [address] [id number] [place] [address] Sep, [facility] [place] [facility] [address] [id number] [place] [address] Sep, [facility] [place] [facility] [address] [id number] [place] [address] Sep, [facility] [place] [facility] [address] [id number] [place] [address] 25 Sep, 2011 [facility] [place] [facility] [address] [id number] [place] [address]- 3568 24 Sep, 2011 [facility] [place] [facility] [address] [id number] [place] [address] 7913 19 Sep, 2011 [facility] [place] [facility] [address] [id number] [place] [address] 7431 17 Sep, 2011 [facility] [place] [facility] [address] [id number] [place] [address] 2243 16 Sep, 2011 [facility] [place] [facility] [address] [id number] [place] [address]- 9852 16 Sep, 2011 [facility] [place] [facility] [address] [id number] [place] [address] 7983 14 Sep, 2011 [facility] [place] [facility] [address] [id number] [place] [address] 13 Sep, 2011 [facility] [place] [facility] [address] [id number] [place] [address] 10 Sep, 2011 [facility] [place] [facility] [address] [id number] [place] [address]- [address] 09 Sep, 2011 [facility] [place] [facility] [address] [id number] [place] [address] 0949 27 Aug, 2011 [facility] [place] [facility] [address] [id number] [place] [address]- 5229 12 Aug, 2011 [facility] [place] [facility] [address] [id number] [place] [address] 4300 08 Aug, 2011 [facility] [place] [facility] [address] [id number] [place] [address]- 2885 06 Aug, 2011 [facility] [place] [facility] [address] [id number] [place] [address] 6[address] 28 Jul, 2011 [facility] [place] [facility] [address] [id number] [place] [address]26 Jul, [facility] [place] [facility] [address] [id number] [place] [address] 3081 16 Jul, 2011 [facility] [address] [id number] [place] [address] 3756 15 Jul, 2011 [facility] [place] [facility] [address] [id number] [place] [address] 3696 14 Jul, 2011 [facility] [place] [facility] [address] [id number] [place] [address] 6366 10 Jul, 2011 [facility] [place] [facility] [address] [id number] [place] [address] 2705 30 Jun, 2011 [facility] [place] [facility] [address] [id number] [place] [address] 9916 05 Jun, 2011 [facility] [address] [id number] [place] [address]598 Jun, [facility] [address] [id number] [place] [address] 3568 Jun, [facility] [address] [id number] [place] [address] 7728 Jun, [facility] [address] [id number] [place] [address]857 May, [facility] [address] [id number] [place] [address]99 May, [facility] [place] [facility] [address] [id number] [place] [address]- 0786 14 May, 2011 [facility] [place] [facility] [address] [id number] [place] [address] 2540 14 May, 2011 [facility] [place] [facility] [address] [id number] [place] [address]- 0516 12 May, 2011 [facility] [place] [facility] [address] [id number] [place] [address] 2546 07 May, 2011 [facility] [place] [facility] [address] [id number] [place] [address] May, [facility] [place] [facility] [address] [id number] [place] [address] 3913 Apr, [facility] [place] [facility] [address] [id number] [place] [address]- 7061 Apr, [facility] [place] [facility] [address] [id number] [place] [address] Apr, [facility] [place] [facility] [address] [id number] [place] [address]- 8471 Apr, [facility] [place] [facility] [address] [id number] [place] [address]- 4282 Apr, [facility] [place] [facility] [address] [id number] [place] [address]- 0089 Apr, [facility] [place] [facility] [address] [id number] [place] [address]- 5206 Mar, [facility] [place] [facility] [address] [id number] [place] [address]- 9965 Mar, [facility] [place] [facility] [address] [id number] [place] [address]- 0324 Mar, [facility] [place] [facility] [address] [id number] [place] [address] 7302 Mar, [facility] [place] [facility] [address] [id number], [place] [address] Jan, [facility] [place] [facility] [address] [id number], [place] [address] Dec, [facility] [place] [facility] [address] [id number] [place] [address] 6958 Dec, [facility] [place] [facility] [address] [id number], [place] [address] October, [facility] [place] [facility] [address] [id number] [place] [address] 1563 Sep, [facility] [place] [facility] [address] [id number] [place] [address]- 7057 14 Sep, 2010 [facility] [address] [id number] [place] [address]- 5526 17 Jul, 2010 [facility] [address] [id number] [place] [address] 2546 16 Jul, 2010 [facility] [address] [id number] [place] [address]- 1276 31 May, 2010 [facility] [place] [facility] [address] [id number] [place] [address] 2542 27 May, 2010 [facility] [address] [id number] [place] [address], [place] [address]- 6981 08 May, 2010 [facility] [address] [id number] [place] [address]- 9604 06 May, 2010 [facility] [address] [id number] [place] [address]- 7587 Apr, [facility] [address] [id number] [place] [address]- 5952 Apr, [facility] [address] [id number] [place] [address]- 5227 Apr, [facility] [address] [facility] [id number] [place] [address]- 6284 18 Apr, 2010 [facility] [place] [facility] [address] [id number] [place] [address] 2545 Apr, [facility] [place] [facility] [address] [id number] [place] [address]- 2540 21 Mar, 2010 [facility] [place] [facility] [address] [id number] [place] [address]- 1423 14 Mar, 2010 [facility] [place] [facility] [address] [id number] [place] [address]- 2542 13 Mar, 2010 [facility] [place] [facility] [address] [id number] [place] [address]- 9635 Mar, [facility] [place] [address] [facility] [id number], [place] [address]- [address] Jan, [facility] [place] [address] [facility] [id number][place] Dec, [facility] [place] [id number] [address] Sep, [facility] [place] [id number], [place] [address] 2422 May, [facility] [place] [address] [facility] [id number][place] [address] May, [facility] [place] [id number] [address] May, [facility] [place] [id number], [place] [address]- [address] Apr, [facility] [place] [id number], [place] [address]- 6714 Apr, [facility] [place] [id number], [place] [address]- [address]20 Apr, [facility] [place] [address] [id number], [place] [address] 6537 Apr, [facility] [place] [id number], [place] [address]- 1599 Apr, [facility] [place] [address] [id number], [place] [address]- [address]60 Mar, [facility] [place] [address] [id number], [place] [address]- 8670 Mar, [facility] [place] [address] [id number], [place] [address]- 9938 Jul, IMMUNIZATIONS No Known Immunizations SOCIAL HISTORY Never Assessed REASON FOR VISIT EMR-[facility] [place] PLAN OF CARE VITAL SIGNS MEDICATIONS Unknown [...] [place] 12/20/15 Hospitalization History [facility]- Abd pain 03/07/2017 Hospitalization [facility]- Abd pain 03/14/2017 Hospital[facility]- No bowel movement, rash 04/13/2017 Hospital[facility]- Abd pain r/t kidney surgery on 04/17/2017 Hospital[facility]- Abd pain r/t kidney surgery on 04/18/2017 [facility]- Lower abd pain 04/30/2017 [facility]- Cannot urinate 05/30/2017 [facility]- Pancreatitis Sx 06/29/2017 [facility]- Stomach pain 07/22/2017 [facility]- Left side pain 08/12/2017 [facility]- Incision site infection 08/30/2017 [facility]/Hematoma Left Abdomen. Discharged 09/04/17- Dr Daniel 09/02/2017 [facility] Right shoulder and back pain 2017 [facility]- Shoulder/Back pain 11/11/2017 [facility]- Right shoulder blade pain 12/04/2017 [facility]- C-Diff 12/13/2017 Hospitalization History C diff et MRSA 12/27/2017
--- OUTSIDE RECORDS SUMMARY | 2018-10-27 14:09 | XMS REPORT ---
Author Author Migration, Doctor Organization [facility] Address Unknown Phone Unavailable Care Team Providers Care Party Host Name Role Phone Migration, Doctor Unavailable Unavailable PROBLEMS Type Condition ICD9-CM Code NEE21-MU Code Onset Dates Condition Status SNOMED Code Problem Chronic tension-type headache, intractable G44.221 Active 364413120 Problem Right carpal tunnel syndrome G56.01 Active 054732019689509 Problem Hyperlipidemia, mixed E78.2 Active 472067887 Problem Morbid (severe) obesity due to excess calories E66.01 Active 573780400 Problem FH: polycystic ovary Z84.2 Active 391994380 Problem Hirsuties L68.0 Active 370003242 Problem Asthma J45.909 Active 025291113 Problem Chronic pancreatitis K86.1 Active 895010083 Problem Trichotillomania F63.3 Active 64978446 Problem Restless leg syndrome G25.81 Active 52617159 Problem Generalized social phobia F40.11 Active 54822620 Problem Primary osteoarthritis of right knee M17.11 Active 711831117387146 Problem Atelectasis J98.11 Active 29358560 Problem History of renal cell carcinoma Z85.528 Active 963589487 Problem Obesities, morbid E66.01 Active 044419277 Problem Polydipsia R63.1 Active 39536346 Problem Nodule of left lung R91.1 Active 654423452 Problem Chronic post-traumatic stress disorder (PTSD) F43.12 Active 501272807 Problem Moderate episode of recurrent major depressive disorder F33.1 Active 533705794 Problem Chronic fatigue R53.82 Active 04106565 Problem Intestinal malabsorption, unspecified K90.9 Active 73949950 ALLERGIES No Information ENCOUNTERS Encounter Location Date Diagnosis [facility] [id number], [place] [address] October, [facility] [address] [facility] [id number], [place] [address] October, [facility] [id number], [place] [address] October, [facility] [address] [facility] [id number], [place] [address] October, [facility] [address] [place] [address] Sep, [facility] [address] [facility] [id number], [place] [address] Sep, [facility] [address] [facility] [id number], [place] [address] Sep, [facility] [address] [facility] [id number], [place] [address] Sep, [facility] [address], [place] [address] Sep, Lower extremity edema R60.0 [facility] [address], [place] [address] Sep, [facility] [address] [facility] [id number], [place] [address] Sep, Lower extremity edema R60.0 and Morbid obesity E66.01 [facility] [address], [place] [address] Sep, [facility] [address], [place] [address] 6[address] Sep, [facility] [address], [place] [address] Aug, [facility] [address] [facility] [id number], [place] [address] Aug, Obesities, morbid E66.01 and Morbid obesity E66.01 [facility] [address] [facility] [id number], [place] [address] Aug, [facility] [address] [address] Jul, [facility] [address], [place] [address] Jul, [facility] [id number] [place] [address] 09145- 3092 Jul, [facility] [address], [place] [address] Jul, Numbness of right hand R20.0 [facility] [id number] [place] [address] 29876- 0473 Jul, [facility] [id number] [place] [address] 03635- 5755 Jul, Numbness of right hand R20.0 [facility] [address] [place] [address] 92352- 2147 Jul, [facility] [id number] [place] [address] 72964- 5240 Jul, [facility] [address] [place] [address] 48023- 5166 Jul, Right-sided thoracic back pain M54.6 [facility] [address] [place] [address] 41977- 8039 Jul, [facility] [address] [place] [address] 06675- 0037 Jul, [facility] [address] [place] [address] 19537- 2919 Jul, [facility] [address] [place] [address] 65642- 7664 Jul, [facility] [address] [place] [address] 68779- 4919 Jun, [facility] [address], [place] [address] Jun, Acute pain of right shoulder M25.511 ; Numbness of right hand R20.0 and Trapezius muscle spasm M62.838 [facility] [address] [place]2365[place], [place] [address] 8[address] Jun, [facility] [id number] [place] [address] 03873- 4155 Jun, [facility] [id number] [place] [address] 21901- 4755 Jun, Cough R05 ; BMI 50.0-59.9, adult Z68.43 and Morbid obesity E66.01 [facility] [id number] [place] [address] 29720- 2709 Jun, [facility] [id number] [place] [address] 20361- 2594 Jun, [facility] [id number] [place] [address] 60454 -0871 Jun, BMI 45.0-49.9, adult Z68.42 and Acute non-recurrent maxillary sinusitis J01.00 [facility] [id number] [place] [address] 34008 -0095 Jun, Acute sinusitis J01.90 ; Dysuria R30.0 and BMI 45.0-49.9, adult Z68.42 [facility] [id number] [place] [address] 81448- 7944 Jun, [facility] [id number] [place] [address] 97033- 8417 Jun, [facility] [id number] [place] [address] 33828- 1787 May, [facility] [id number] [place] [address] 46982- 3583 May, [facility] [id number] [place] [address] 49118- 9299 May, [facility] [id number] [place] [address] 47491- 0993 May, [address] [id number] [place] [address] 55338- 0099 May, [place] [facility] [id number] [place] [address] 92215- 5978 Apr, Generalized social phobia F40.11 ; Trichotillomania F63.3 ; Chronic post-traumatic stress disorder (PTSD) F43.12 and BMI 45.0-49.9, adult Z68.42 [place] [id number] [place] [address] 14008- 1178 Apr, [address] [address] [address]- 5816 Apr, Chronic tension-type headache, intractable G44.221 [address] [address] 06[address]- 2233 Apr, [facility] [id number] [place] [address] 95485 -6843 Mar, [facility] [id number] [place] [address] 53224 -6981 Mar, BMI 45.0-49.9, adult Z68.42 and Pimples R23.8 [place] [id number] [place] [address] 38281- 5068 Mar, [place] [id number] [place] [address] 41863- 3764 Mar, [place] [id number] [place] [address] 02495- 5755 Mar, Decreased urination R34 ; Chronic fatigue R53.82 ; Peripheral edema R60.9 ; Diarrhea, unspecified type R19.7 ; Non-intractable vomiting with nausea, unspecified vomiting type R11.2 ; BMI 45.0-49.9, adult Z68.42 and Chronic post-traumatic stress disorder (PTSD) F43.12 [address] [address] [place] [address]- 8304 Mar, Intestinal malabsorption, unspecified K90.9 ; Diarrhea, unspecified R19.7 ; Urinary urgency R39.15 ; Rectal bleeding K62.5 and Decreased urine output R34 [facility] [id number] [place] [address] 43468- 9605 Mar, Decreased urine output R34 [facility] [address] 28020- 0199 Mar, Rectal bleeding K62.5 [facility] [id number] [place] [address] 30435- 1946 Mar, Rectal bleeding K62.5 [place] [id number] [place] [address] 80877- 0026 Mar, Urinary urgency R39.15 [place] [facility] [id number] [place] [address] 52195- 1912 Mar, Urinary urgency R39.15 [place] [id number] [place] [address] 50397- 5729 Mar, Primary osteoarthritis of right knee M17.11 and BMI 45.0- 49.9, adult Z68.42 [place] [facility] [id number] [place] [address] 89408- 7125 Mar, [place] [id number] [place] [address] 64032- 1041 Feb, Left upper arm pain M79.622 [address] [id number] [place] [address] 48953- 9180 Feb, [address] [address] 27424- 4989 Jan, Acute pain of right knee M25.561 ; Right upper quadrant abdominal pain R10.11 and BMI 45.0-49.9, adult Z68.42 [address] [id number] [place] [address] 13142- 3426 Jan, [facility] [address], [place] [address]- 9199 Jan, [facility] [id number] [place] [address] 32878- 0338 Dec, [facility] [id number] [place] [address] 12951- 2892 Dec, Intestinal malabsorption, unspecified K90.9 and Diarrhea, unspecified R19.7 [facility] [id number] [place] [address] 98773- 8031 Dec, [facility] [id number] [place] [address] 38049- 6865 Dec, Strep throat J02.0 ; Intestinal malabsorption, unspecified K90.9 ; Diarrhea, unspecified R19.7 ; Postoperative seroma involving digestive system after non-digestive system procedure K91.873 ; Hyperlipidemia, mixed E78.2 and BMI 45.0-49.9, adult Z68.42 [facility] [id number] [place] [address] 12486- 3142 Dec, [facility] [id number] [place] [address] 52650- 6754 Dec, Nausea R11.0 [facility] [id number] [place] [address] 10235- 8644 Dec, [facility] [address] [place] [address] 72473 -1380 Dec, Sore throat J02.9 ; Strep throat J02.0 and BMI 45.0-49.9, adult Z68.42 [facility] [id number] [place] [address] 00161- 7769 Dec, [facility] [id number] [place] [address] 76515- 6886 Dec, [facility] [id number] [place] [address] 95430- 5793 Dec, [facility] [address], [place] [address]- 7635 Dec, [facility] [id number] [place] [address] 63705- 9926 Dec, [facility] [address] [place] [address] 28475- 5491 Dec, [facility] [id number] [place] [address] 24862- 8270 Dec, [facility] [address] [place] [address] 17752- 9714 Dec, [facility] [id number] [place] [address] 03495- 4439 Dec, Clostridium difficile colitis A04.72 ; Intractable vomiting with nausea, unspecified vomiting type R11.2 and BMI 45.0-49.9, adult Z68.42 [facility] [address], [place] [address]- 6965 Dec, [facility] [id number] [place] [address] 12829- 6702 Nov, [facility] [id number] [place] [address] 48688- 0580 Nov, [facility] [address] [place] [address] 91320- 0084 Nov, [facility] [address], [place] [address]- 1275 Nov, [facility] [id number] [place] [address] 96521 -0086 Nov, [facility] [id number] [place] [address] 42071- 6935 Nov, Hyperlipidemia, mixed E78.2 [facility] [address], [place] [address] Nov, Acute suppurative otitis media of right ear without spontaneous rupture of tympanic membrane, recurrence not specified H66.001 and BMI 45.0-49.9, adult Z68.42 [address] [facility] [id number] [place] [address] 54546- 3870 Nov, Hyperlipidemia, mixed E78.2 [id number] [place] [address] 69958- 0134 Nov, [place] [id number] [place] [address] 27268- 0579 Nov, [id number] [place] [address] 19642- 0516 Nov, Nodule of left lung R91.1 [id number] [place] [address] 60801- 4095 Nov, Medicare annual wellness visit, initial Z00.00 [...] and Encounter for immunization Z23 [id number] [place] [address] 26020- 6993 October, [id number] [place] [address] 35301- 2954 October, Nodule of left lung R91.1 [id number] [place] [address] 22975- 4997 October, Nodule of left lung R91.1 [id number] [place] [address] 40973- 9483 October, Recurrent major depressive disorder, in partial remission F33.41 ; Restless leg syndrome G25.81 ; Generalized social phobia F40.11 ; Chronic post-traumatic stress disorder (PTSD) F43.12 ; BMI 45.0-49.9, adult Z68.42 and Trichotillomania F63.3 [facility] [id number] [place] [address] 54032- 7107 October, [address] [place] [address] 21337- 2377 Sep, Chronic fatigue R53.82 and BMI 45.0-49.9, adult Z68.42 [address] [place] [address] 49852- 8237 Aug, [address] [place] [address] 44396- 6858 Jul, Restless leg syndrome G25.81 and B12 deficiency E53.8 [address] [place] [address] 10716- 7063 Jul, [address] [place] [address] 81344- 2416 Jul, [address] [address] 35348- 2715 Jun, [address] [address] 32369- 1916 Jun, Fatigue, unspecified type R53.83 ; History of renal cell carcinoma Z85.528 ; Chronic pancreatitis K86.1 ; Restless leg syndrome G25.81 ; Dark urine R82.99 and BMI 45.0-49.9, adult Z68.42 [address] [place] [address] 43619- 1246 Jun, [address] [address] 16678- 6673 Jun, [address] [place] [address] 52397- 5975 Jun, [address] [place], [place] [address]- 2280 Jun, [address] [place] [place] [address] 50884- 0106 May, Chronic post-traumatic stress disorder (PTSD) F43.12 ; Moderate episode of recurrent major depressive disorder F33.1 ; Trichotillomania F63.3 and Generalized social phobia F40.11 [address] [address] [place] [address] 99504- 8016 May, [address] [place] [place] [address] 75717- 8550 May, Chronic post-traumatic stress disorder (PTSD) F43.12 ; Moderate episode of recurrent major depressive disorder F33.1 ; Trichotillomania F63.3 and Generalized social phobia F40.11 [address] [address] [place] [address] 05442- 4922 May, Hyperlipidemia, mixed E78.2 ; Morbid (severe) obesity due to excess calories E66.01 ; Chronic post-traumatic stress disorder (PTSD) F43.12 ; Moderate episode of recurrent major depressive disorder F33.1 ; Trichotillomania F63.3 and Generalized social phobia F40.11 [address] [address], [place] [address]- 2251 Apr, [address] [address] [place] [address] 26876- 1762 Apr, Hyperlipidemia, mixed E78.2 ; Morbid (severe) obesity due to excess calories E66.01 ; Chronic post-traumatic stress disorder (PTSD) F43.12 ; Moderate episode of recurrent major depressive disorder F33.1 ; Trichotillomania F63.3 and Generalized social phobia F40.11 [place] [id number], [place] [address]- 0461 Apr, Trichotillomania F63.3 ; Generalized social phobia F40.11 ; Chronic post-traumatic stress disorder (PTSD) F43.12 and Moderate episode of recurrent major depressive disorder F33.1 [facility] [id number] [place] [address] 71856- 9252 Apr, [facility] [id number] [place] [address] 63783- 0039 Apr, [facility] [address] 77802- 5187 Mar, Moderate episode of recurrent major depressive disorder F33.1 ; Trichotillomania F63.3 ; Chronic post-traumatic stress disorder (PTSD) F43.12 ; Generalized social phobia F40.11 and Restless leg syndrome G25.81 [place] [id number] [place] [address] 55496- 6233 Mar, [address] [address] 84922- 2771 Mar, [place] [address] 79222- 7973 Feb, Left kidney mass N28.[address] 49479- 2847 Jan, [place] [id number] [place] [address] 48826- 7432 Dec, Polydipsia R63.1 ; Chronic pancreatitis K86.1 and Fatigue, unspecified type R53.83 [facility] [id number] [place] [address] 55654- 8569 Nov, [facility] [id number] [place] [address] 36375- 3201 Nov, [place] [id number] [place] [address] 54726- 2955 Nov, Headache around the eyes R51 [facility] [id number] [place] [address] 99320- 6749 05 Nov, 2016 [facility] [address] [place] [address] 97101- 0670 October, STD exposure Z20.2 [facility] [id number] [place] [address] 48517- 9816 October, STD exposure Z20.2 [facility] [id number] [place] [address] 87129- 0015 October, Chronic post-traumatic stress disorder (PTSD) F43.12 ; Generalized social phobia F40.11 ; Trichotillomania F63.3 and Restless leg syndrome G25.81 [place] [id number] [place] [address] 58602- 1285 October, [facility] [id number] [place] [address] 73212- 0389 Sep, [facility] [id number] [place] [address] 29171- 7115 Aug, [facility] [id number] [place] [address] 63631- 0234 Aug, [facility] [id number] [place] [address] 46705- 4764 Aug, Neck mass R22.1 [place] [id number] [place] [address] 83737- 4375 Aug, Atelectasis J98.11 [facility] [id number] [place] [address] 31939- 0396 28 Jul, 2016 Hyperlipidemia, mixed E78.2 ; Atypical pneumonia J18.9 and Neck mass R22.1 [facility] [id number] [place] [address] 19397- 2448 15 Jul, 2016 Hemoptysis R04.2 [facility] [id number] [place] [address] 78916- 8658 08 Jul, 2016 Acute non-recurrent pansinusitis J01.40 ; Hemoptysis R04.2 ; Polydipsia R63.1 and Malaise R53.81 [facility] [place] [address], [place] [address] -[address]756 May, Other viral agents as the cause of diseases classified elsewhere B97.89 and Acute upper respiratory infection, unspecified J06.9 [facility] [place] [address] [address]65 Mar, Nausea R11.0 [facility] [id number] [place] [address] 38335 -1005 Dec, Hives L50.9 [place] [id number] [place] [address] 98562- 6918 Dec, [facility] [place] [id number] [place] [address] 91548 -2546 Dec, Cutaneous abscess of limb, unspecified L02.419 ; Cellulitis of unspecified part of limb L03.119 ; Encounter for incision and drainage procedure Z01.89 and Encounter for recheck of abscess following incision and drainage Z09 [facility] [address] [address]77 Dec, Abscess of leg, right L02.415 [place] [address], [place] [address]- 1786 Dec, Cellulitis of unspecified part of limb L03.119 and Cutaneous abscess of limb, unspecified L02.419 [place] [address], [place] [address]- 0240 Dec, [place] [address], [place] [address]- 8574 Dec, [facility] [place] [id number] [place] [address] 62557 -2016 Aug, [place] [address] [address]- 7746 Aug, [facility] [id number] [place] [address] 26793 -1459 04 Jul, 2015 Pain in unspecified wrist M25.539 and Back pain, thoracic M54.6 [facility] [id number] [place] [address] 49974 -9405 Jun, Strain of right wrist, initial encounter S66.911A [place] [address] 20597- 1662 Jun, Chronic pancreatitis, unspecified pancreatitis type K86.1 ; Hirsuties L68.0 ; Morbid (severe) obesity due to excess calories E66.01 ; Chronic pancreatitis K86.1 and Asthma J45.909 [place] [address] [address] May, [place] [address] [address] May, Hyperlipidemia, mixed E78.2 and Muscle spasm of back M62.830 [place] [address] [address] Apr, [place] [address] [address] Apr, Torticollis M43.6 [place] [address] [address] Apr, Right-sided thoracic back pain M54.6 [facility] [address] [address] Mar, Rash R21 [place] [address] [address] Mar, [facility] [address] [address] Jan, [place] [address] [address] Dec, [place] [id number] [address] Dec, Urinary frequency 788.41 and Nocturia more than twice per night 788.43 [facility] [id number] [place] [address]- [address] Nov, [facility] [id number] [place] [address]- [address] Nov, [facility] [id number] [place] [address]- [address] Nov, Abdominal pain 789.00 [facility] [id number] [place] [address]- [address] October, TDAP DX V06.1 [facility] [id number] [place] [address]- [address] October, [facility] [id number] [place] [address] October, Disturbance of skin sensation 782.0 ; Wrist pain, right 719.43 ; Hyperlipidemia 272.4 and Skin lesion of face 709.9 [facility] [id number] [place] [address]- [address] Sep, [facility] [id number] [place] [address] 87006- 5408 Sep, [facility] [id number] [place] [address] 72531- 3546 Aug, [facility] [id number] [place] [address] 83304- 6662 Aug, [facility] [id number] [place] [address] 22993- 5092 Aug, [facility] [address] [id number] [address] 8043 Aug, [facility] [id number] [place] [address] [id number]- 9363 Aug, [facility] [place] [facility] [address] [id number] [place] [address]- 0772 16 Aug, 2014 [facility] [place] [facility] [address] [id number] [place] [address]- 3161 14 Aug, 2014 [facility] [place] [facility] [address] [id number] [place] [address]- 0700 14 Aug, 2014 [facility] [place] [facility] [address] [id number] [place] [address]- 4633 11 Aug, 2014 [facility] [place] [facility] [address] [id number] [place] [address]- 9480 Aug, [facility] [place] [facility] [address] [id number] [place] [address]- 4129 04 Aug, 2014 [facility] [place] [facility] [address] [id number] [place] [address]- 2536 04 Aug, 2014 [facility] [place] [facility] [address] [id number] [place] [address]- 5054 Aug, [facility] [place] [facility] [address] [id number] [place] [address]- 6763 Aug, [facility] [place] [facility] [address] [id number] [place] [address]- 4353 Jul, 2014 [facility] [place] [facility] [address] [id number] [place] [address]- 6243 Jul, 2014 [facility] [place] [facility] [address] [id number] [address] 5439 Jul, 2014 [facility] [place] [facility] [address] [id number] [place] [address]- 5179 Jul, 2014 [facility] [place] [facility] [address] [id number] [place] [address]- 8131 Jul, 2014 [facility] [place] [facility] [address] [id number] [place] [address]- 6593 Jul, 2014 [facility] [place] [facility] [address] [id number] [place] [address]- 7648 Jun, [facility] [address] [id number] [place] [address]- 3677 Jun, [facility] [address] [id number] [place] [address]- 5233 Jun, [facility] [address] [id number] [place] [address]- 8669 Jun, [facility] [address] [id number] [place] [address]- 0458 Jun, [facility] [address] [id number] [place] [address]- 4238 Jun, [facility] [address] [id number] [place] [address]- 7005 Jun, [facility] [address] [id number] [place] [address]- 4242 Jun, [facility] [address] [id number] [place] [address]- 9299 May, [facility] [address] [id number] [place] [address]- 4429 19 May, 2014 [facility] [address] [id number] [place] [address]- 7622 18 May, 2014 [facility] [place] [facility] [address] [id number] [place] [address]- 9546 18 May, 2014 [facility] [address] [id number] [place] [address]- 9985 15 May, 2014 [facility] [place] [facility] [address] [id number] [place] [address]- 6722 15 May, 2014 [facility] [place] [facility] [address] [id number] [place] [address]- 1279 11 May, 2014 [facility] [address] [id number] [place] [address]- 4338 May, [facility] [place] [facility] [address] [id number] [place] [address]- 9570 May, [facility] [place] [facility] [address] [id number] [place] [address]- 5327 May, [facility] [place] [facility] [address] [id number] [place] [address]- 8369 May, [facility] [place] [facility] [address] [id number] [place] [address]- 9726 May, [facility] [place] [facility] [address] [id number] [place] [address]- 0313 Apr, [facility] [place] [facility] [address] [id number] [place] [address]- 2617 Apr, [facility] [place] [facility] [address] [id number] [place] [address]- 5864 Apr, [facility] [place] [facility] [address] [id number] [place] [address]- 2756 Apr, [facility] [place] [facility] [address] [id number] [place] [address]- 7855 Apr, [facility] [place] [facility] [address] [id number] [place] [address]- 9329 Apr, [facility] [place] [facility] [address] [id number] [place] [address]- 7067 Apr, [facility] [place] [facility] [address] [id number], [place] [address]- 9938 Apr, [facility] [place] [facility] [address] [id number] [place] [address]- 2043 Apr, [facility] [place] [facility] [address] [id number] [place] [address]- 0023 Apr, [facility] [place] [facility] [address] [id number], [place] [address]- 3045 Apr, [facility] [place] [facility] [address] [id number], [place] [address]- 5340 Apr, [facility] [place] [facility] [address] [id number] [place] [address]- 9196 Mar, [facility] [place] [facility] [address] [id number] [place] [address]- 4874 Mar, [facility] [place] [facility] [address] [id number] [place] [address]- 4679 Mar, [facility] [place] [facility] [address] [id number] [place] [address]- 3959 Mar, [facility] [place] [facility] [address] [id number] [place] [address]- 2381 Feb, [facility] [place] [facility] [address] [id number] [place] [address]- 3002 Feb, [facility] [place] [facility] [address] [id number] [place] [address]- 9818 Feb, [facility] [place] [facility] [address] [id number] [place] [address]- 0514 05 Feb, 2014 [facility] [place] [facility] [address] [id number] [place] [address]- 6910 05 Feb, 2014 [facility] [place] [facility] [address] [id number] [place] [address]- 3468 Feb, [facility] [place] [facility] [address] [id number] [place] [address]- 4836 Jan, [facility] [place] [facility] [address] [id number] [place] [address]- 5342 Jan, [facility] [place] [facility] [address] [id number] [place] [address]- 3745 Jan, [facility] [place] [facility] [address] [id number] [place] [address]- 4263 Jan, [facility] [place] [facility] [address] [id number] [place] [address]- 0810 Jan, [facility] [place] [facility] [address] [id number] [place] [address]- 6648 Jan, [facility] [place] [facility] [address] [id number] [place] [address]- 5576 Jan, [facility] [place] [facility] [address] [id number] [place] [address]- 2986 Jan, [facility] [place] [facility] [address] [id number] [place] [address]- 3909 Jan, [facility] [place] [facility] [address] [id number] [place] [address]- 8616 Jan, [facility] [place] [facility] [address] [id number] [place] [address]- 3664 Jan, [facility] [place] [facility] [address] [id number] [place] [address]- 2559 Jan, [facility] [place] [facility] [address] [id number] [place] [address]- 0758 Jan, [facility] [place] [facility] [address] [id number] [place] [address]- 6856 Jan, [facility] [place] [facility] [address] [id number] [place] [address]- 6516 Dec, [facility] [place] [facility] [address] [id number] [place] [address]- 5127 Dec, [facility] [place] [facility] [address] [id number] [place] [address]- 2744 Dec, [facility] [place] [facility] [address] [id number] [place] [address]- 2516 Dec, [facility] [place] [facility] [address] [id number] [place] [address]- 1288 Nov, [facility] [place] [facility] [address] [id number] [place] [address]- 2716 Nov, [facility] [place] [facility] [address] [id number] [place] [address]- 9634 Nov, [facility] [place] [facility] [address] [id number] [place] [address]- 0428 Nov, [facility] [place] [facility] [address] [id number] [place] [address]- 9823 Nov, [facility] [place] [facility] [address] [id number] [place] [address]- 7512 October, [facility] [place] [facility] [address] [id number] [place] [address]- 2665 October, [facility] [place] [facility] [address] [id number] [place] [address]- 8020 October, [facility] [place] [facility] [address] [id number] [place] [address]- 6707 October, [facility] [place] [facility] [address] [id number] [place] [address]- 3313 October, [facility] [place] [facility] [address] [id number] [place] [address]- 1740 October, [facility] [place] [facility] [address] [id number] [place] [address]- 0443 October, [facility] [place] [facility] [address] [id number] [place] [address]- 5028 October, [facility] [place] [facility] [address] [id number] [place] [address]- 1185 October, [facility] [place] [facility] [address] [id number] [place] [address]- 0029 October, [facility] [place] [facility] [address] [id number] [place] [address]- 5338 October, [facility] [place] [facility] [address] [id number] [place] [address]- 7507 October, [facility] [place] [facility] [address] [id number] [place] [address]- 2437 October, [facility] [place] [facility] [address] [id number] [place] [address]- 4813 October, [facility] [place] [facility] [address] [id number] [place] [address]- 1283 Sep, [facility] [place] [facility] [address] [id number] [place] [address]- 7675 Sep, [facility] [place] [facility] [address] [id number] [place] [address]- 5730 Sep, [facility] [place] [facility] [address] [id number] [place] [address]- 2723 Sep, [facility] [place] [facility] [address] [id number] [place] [address]- 4509 Sep, [facility] [place] [facility] [address] [id number] [place] [address]- 9144 Sep, [facility] [place] [facility] [address] [id number] [place] [address]- 6369 Sep, [facility] [place] [facility] [address] [id number] [place] [address]- 1676 Sep, [facility] [place] [facility] [address] [id number] [place] [address]- 8866 Sep, [facility] [place] [facility] [address] [id number] [place] [address]- 4136 Sep, [facility] [place] [facility] [address] [id number] [place] [address]- 0128 Sep, [facility] [place] [facility] [address] [id number] [place] [address]- 1345 Sep, [facility] [place] [facility] [address] [id number] [place] [address]- 5381 Sep, [facility] [place] [facility] [address] [id number] [place] [address]- 4342 Sep, [facility] [place] [facility] [address] [id number] [place] [address]- 5118 Sep, [facility] [place] [facility] [address] [id number] [place] [address]- 9087 Aug, [facility] [place] [facility] [address] [id number] [place] [address]- 2152 Aug, [facility] [place] [facility] [address] [id number] [place] [address]- 9002 Aug, [facility] [place] [facility] [address] [id number] [place] [address]- 7637 Aug, [facility] [place] [facility] [address] [id number] [place] [address]- 9547 Jul, [facility] [place] [facility] [address] [id number] [place] [address]- 0644 Jul, [facility] [place] [facility] [address] [id number] [place] [address]- 7854 Jul, [facility] [place] [facility] [address] [id number] [place] [address]- 0449 Jul, [facility] [place] [facility] [address] [id number] [place] [address]- 5217 Jun, [facility] [place] [facility] [address] [id number] [place] [address]- 0110 Jun, [facility] [place] [facility] [address] [id number] [place] [address]- 3596 Jun, [facility] [place] [facility] [address] [id number] [place] [address]- 0544 Jun, [facility] [place] [facility] [address] [id number] [place] [address]- 4281 Jun, [facility] [place] [facility] [address] [id number] [place] [address]- 6616 Jun, [facility] [place] [facility] [address] [id number] [place] [address]- 0022 Jun, [facility] [place] [facility] [address] [id number], [place] [address]- 2571 08 Jun, 2013 [facility] [address] [id number] [place]- 8479 20 May, 2013 [facility] [address] [id number] [place] [address]305 20 May, 2013 [facility] [address] [id number] [place] [address]- 3932 18 May, 2013 [facility] [address] [id number] [place] [address]- 8836 18 May, 2013 [facility] [address] [id number] [place] [address]- 2532 17 May, 2013 [facility] [address] [id number] [place] [address] 17 May, 2013 [facility] [address] [id number] [place] [address]- 7260 17 May, 2013 [facility] [address] [id number] [place] [address]- 3396 17 May, 2013 [facility] [address] [id number] [place] [address]- 5150 16 May, 2013 [facility] [address] [id number] [place] [address]- 6714 16 May, 2013 [facility] [address] [id number] [place] [address]- 4554 14 May, 2013 [facility] [address] [id number] [place] [address]- 0810 14 May, 2013 [facility] [address] [id number] [place] [address]- 6814 13 May, 2013 [facility] [place] [facility] [address] [id number] [place] [address]- 8845 13 May, 2013 [facility] [address] [id number] [place] [address]- 3826 12 May, 2013 [facility] [place] [facility] [address] [id number] [place] [address]- 1103 May, [facility] [address] [id number] [place] [address]- 2192 May, [facility] [address] [id number] [place] [address]- 5356 May, [facility] [address] [id number] [place] [address]- 1881 Apr, [facility] [address] [id number] [place] [address]- 8421 Apr, [facility] [address] [id number] [place] [address]- 8029 Apr, [facility] [address] [id number] [place] [address]- 5099 Apr, [facility] [address] [id number] [place] [address]- 3788 Aug, [facility] [address] [id number] [place] [address]- 9145 Aug, [facility] [address] [id number] [place] [address]- 2257 Aug, [facility] [address] [id number] [place] [address]- 2449 Aug, [facility] [address] [id number] [place] [address]- 7111 Jul, [facility] [address] [id number] [place] [address]- 9783 Jun, [facility] [address] [id number] [place] [address]- 3576 Jun, [facility] [address] [id number] [place] [address]- 2546 Jun, [facility] [address] [id number] [place] [address]- 6370 Jun, [facility] [place] [facility] [address] [id number] [place] [address]- 5465 May, [facility] [place] [facility] [address] [id number] [place] [address]- 3751 May, [facility] [place] [facility] [address] [id number] [place] [address]- 4584 May, [facility] [place] [facility] [address] [id number] [place] [address]- 7881 May, [facility] [place] [facility] [address] [id number] [place] [address]- 2032 May, [facility] [place] [facility] [address] [id number] [place] [address]- 8291 May, [facility] [place] [facility] [address] [facility] [id number] [place] [address]- 7605 May, [facility] [place] [facility] [address] [id number], [place] [address]- 9892 Apr, [facility] [place] [facility] [address] [id number] [place] [address]- 8315 Apr, [facility] [place] [facility] [address] [id number], [place] [address]- 9534 Apr, [facility] [place] [facility] [address] [id number], [place] [address]- 4071 Apr, [facility] [place] [facility] [address] [id number], [place] [address]- 0369 Apr, [facility] [place] [facility] [address] [id number] [place] [address]- 8117 Apr, [facility] [place] [facility] [address] [id number], [place] [address]- 0157 Apr, [facility] [place] [facility] [address] [facility] [id number] [place] [address]- 5341 Mar, [facility] [place] [facility] [address] [id number] [place] [address]- 9183 Mar, [facility] [place] [facility] [address] [id number] [place] [address]- 4432 Mar, 2011 [facility] [place] [facility] [address] [id number] [place] [address]- 4170 Mar, [facility] [place] [facility] [address] [id number] [place] [address]- 6415 Mar, 2011 [facility] [place] [facility] [address] [id number] [place] [address]- 9944 Mar, [facility] [place] [facility] [address] [id number] [place] [address]- 9145 Mar, [facility] [place] [facility] [address] [id number] [place] [address]- 2765 Mar, [facility] [place] [facility] [address] [id number] [place] [address] 15 Mar, 2012 [facility] [place] [facility] [address] [id number] [place] [address] 15 Mar, 2012 [facility] [place] [facility] [address] [id number] [place] [address] Mar, [facility] [place] [facility] [address] [facility] [id number] [place] [address] Mar, [facility] [place] [facility] [address] [id number] [place] [address] 06 Feb, 2012 [facility] [place] [facility] [address] [id number], [place] [address] Jan, [facility] [place] [facility] [address] [id number] [place] [address] 14 Jan, 2012 [facility] [place] [facility] [address] [id number] [place] [address] Jan, [facility] [place] [facility] [address] [facility] [id number] [place] [address] Jan, [facility] [place] [facility] [address] [id number] [place] [address] Jan, [facility] [place] [facility] [address] [id number] [place] [address] Dec, [facility] [place] [facility] [address] [id number] [place] [address] Dec, [facility] [place] [facility] [address] [id number] [place] [address] Nov, [facility] [place] [facility] [address] [id number] [place] [address] Nov, [facility] [place] [facility] [address] [id number] [place] [address] Nov, [facility] [place] [facility] [address] [id number] [place] [address] October, [facility] [place] [facility] [address] [id number] [place] [address] October, [facility] [place] [facility] [address] [id number] [place] [address] October, [facility] [place] [facility] [address] [id number] [place] [address] October, [facility] [place] [facility] [address] [id number] [place] [address] October, [facility] [place] [facility] [address] [id number] [place] [address] 67[address] October, [facility] [place] [facility] [address] [id number] [place] [address] October, [facility] [place] [facility] [address] [id number] [place] [address] Sep, [facility] [place] [facility] [address] [id number] [place] [address] Sep, [facility] [place] [facility] [address] [id number] [place] [address] 26 Sep, 2011 [facility] [place] [facility] [address] [id number] [place] [address] 25 Sep, 2011 [facility] [place] [facility] [address] [id number] [place] [address] 24 Sep, 2011 [facility] [place] [facility] [address] [id number] [place] [address]36 19 Sep, 2011 [facility] [place] [facility] [address] [id number] [place] [address] 9469 17 Sep, 2011 [facility] [place] [facility] [address] [id number] [place] [address] 16 Sep, 2011 [facility] [place] [facility] [address] [id number] [place] [address]16 16 Sep, 2011 [facility] [place] [facility] [address] [id number] [place] [address] 14 Sep, 2011 [facility] [place] [facility] [address] [id number] [place] [address] 13 Sep, 2011 [facility] [place] [facility] [address] [id number] [place] [address] 3847 10 Sep, 2011 [facility] [place] [facility] [address] [id number] [place] [address] 09 Sep, 2011 [facility] [place] [facility] [address] [id number] [place] [address] 27 Aug, 2011 [facility] [place] [facility] [address] [id number] [place] [address] Aug, [facility] [place] [facility] [address] [id number] [place] [address] 8[address] 08 Aug, 2011 [facility] [place] [facility] [address] [id number] [place] [address] 06 Aug, 2011 [facility] [place] [facility] [address] [id number] [place] [address]- 8464 28 Jul, 2011 [facility] [place] [facility] [address] [id number] [place] [address]368 22 Jul, 2011 [facility] [address] [id number] [place] [address]- [address]226 16 Jul, 2011 [facility] [place] [facility] [address] [id number] [place] [address] 2546 15 Jul, 2011 [facility] [address] [id number] [place] [address] 8736 14 Jul, 2011 [facility] [place] [facility] [address] [id number] [place] [address] 2548 10 Jul, 2011 [facility] [address] [id number] [place] [address] 30 Jun, 2011 [facility] [address] [id number] [place] [address] Jun, [facility] [address] [id number] [place] [address] Jun, [facility] [address] [id number] [place] [address]185 Jun, [facility] [address] [id number] [place] [address] Jun, [facility] [address] [id number] [place] [address]098 27 May, 2011 [facility] [address] [id number] [place] [address] May, [facility] [address] [id number] [place] [address] 2546 14 May, 2011 [facility] [place] [facility] [address] [id number] [place] [address] 2546 14 May, 2011 [facility] [place] [facility] [address] [id number] [place] [address] 2546 12 May, 2011 [facility] [place] [facility] [address] [id number] [place] [address] May, [facility] [place] [facility] [address] [id number] [place] [address] May, [facility] [place] [facility] [address] [id number] [place] [address] Apr, [facility] [place] [facility] [address] [id number] [place] [address] Apr, [facility] [place] [facility] [address] [id number] [place] [address] Apr, [facility] [place] [facility] [address] [id number] [place] [address] Apr, [facility] [place] [facility] [address] [id number] [place] [address] Apr, [facility] [place] [facility] [address] [id number] [place] [address] Apr, [facility] [place] [facility] [address] [id number] [place] [address] Mar, [facility] [place] [facility] [address] [id number] [place] [address] Mar, [facility] [place] [facility] [address] [id number], [place] [address] Mar, [facility] [place] [facility] [address] [id number], [place] [address] Mar, [facility] [place] [facility] [address] [id number], [place] [address] Jan, [facility] [place] [facility] [address] [id number] [place] [address] Dec, [facility] [place] [facility] [address] [id number], [place] [address] Dec, [facility] [place] [facility] [address] [id number][place] [address] October, [facility] [place] [facility] [address] [id number] [place] [address] 20 Sep, 2010 [facility] [address] [id number] [place] [address] 14 Sep, 2010 [facility] [address] [id number] [place] [address] 17 Jul, 2010 [facility] [address] [id number] [place] [address] 16 Jul, 2010 [facility] [address] [id number] [place] [address] 25[address] 31 May, 2010 [facility] [address] [id number] [place] [address], [place] [address] 27 May, 2010 [facility] [address] [id number] [place] [address] 08 May, 2010 [facility] [address] [id number] [place] [address] 06 May, 2010 [facility] [address] [id number] [place] [address] 22 Apr, 2010 [facility] [address] [facility] [id number] [place] [address] Apr, [facility] [address] [facility] [id number] [place] [address] 18 Apr, 2010 [facility] [place] [facility] [address] [id number] [place] [address] 18 Apr, 2010 [facility] [place] [facility] [address] [id number] [place] [address] Apr, [facility] [place] [facility] [address] [id number] [place] [address] 21 Mar, 2010 [facility] [place] [facility] [address] [id number] [place] [address] 14 Mar, 2010 [facility] [place] [facility] [address] [id number] [place] [address] 13 Mar, 2010 [facility] [address] [id number], [place] [address] 12 Mar, 2010 [facility] [address] [facility] [id number], [place] [address] Jan, [facility] [address] [facility] [id number], [place] [address] Dec, [facility] [address] [facility] [id number], [place] [address] Sep, [facility] [address] [facility] [id number], [place] [address] May, [facility] [address] [facility] [id number], [place] [address] May, [facility] [address] [facility] [id number], [place] [address] May, [facility] [address] [facility] [id number], [place] [address] Apr, [facility] [address] [facility] [id number], [place] [address] 17 Apr, 2009 [facility] [address] [facility] [id number], [place] [address] Apr, [facility] [address] [facility] [id number], [place] [address] Apr, [facility] [address] [facility] [id number], [place] [address] Apr, [facility] [address] [facility] [id number][place] [address] Mar, [facility] [address] [facility] [id number], [place] [address] 15 Mar, 2009 [facility] [address] [facility] [id number], [place] [address] 18 Jul, 2008 IMMUNIZATIONS No Known Immunizations SOCIAL HISTORY Never Assessed REASON FOR VISIT EMR-[facility] PLAN OF CARE VITAL SIGNS MEDICATIONS Unknown [...] the January before. 03/2018 Hospitalization History Cellulitis-[facility] 12/20/15 Hospitalization History [facility]- Abd pain 03/07/2017 Hospitalization History [facility]- Abd pain 03/14/2017 Hospitalization History [facility]- No bowel movement, rash 04/13/2017 Hospitalization History [facility]- Abd pain r/t kidney surgery on 04/17/2017 Hospitalization History [facility] [place] [facility]- Abd pain r/t kidney surgery on 04/18/2017 Hospitalization History [facility] [place] [facility]- Lower abd pain 04/30/2017 Hospitalization History [facility] [place]- Cannot urinate 05/30/2017 Hospitalization History [facility]- Pancreatitis Sx 06/29/2017 Hospitalization History [facility]- Stomach pain 07/22/2017 Hospitalization History [facility]- Left side pain 08/12/2017 Hospitalization History [facility]- Incision site infection 08/30/2017 Hospitalization History [facility]- Post Op Seroma/Hematoma Left Abdomen. Discharged 09/04/17- Dr Daniel 09/02/2017 Hospitalization History [facility]- Right shoulder and back pain 2017 Hospitalization History [facility]- Shoulder/Back pain 11/11/2017 Hospitalization History [facility]- Right shoulder blade pain 12/04/2017 Hospitalization History [facility]- C-Diff 12/13/2017 Hospitalization History C diff et MRSA 12/27/2017
== END 2018-10-23 15:05 | disposition home or self-care (01) | DRG 330 ==
LOC: UNDOADMIN 07:10 → 4TH 07:10 → SURG 07:10 → 4TH 07:11 → EDSTATUS 08:00 → 4TH 13:10 → SURG 13:10 → UNDODISIN 10-23 15:05
PROVIDERS: ADMIT Surgery; ATTEND Surgery
PROC: 0DB80ZZ Excision of Small Intestine, Open Approach (ICD-10-PCS; 2018-10-22)
PROC: 0WUF4JZ Supplement Abdominal Wall with Synthetic Substitute, Percutaneous Endoscopic Approach (ICD-10-PCS; principal; 2018-10-22 09:07)
DX: K43.0 Incisional hernia with obstruction, without gangrene (principal); K86.1 Other chronic pancreatitis; F32.9 Major depressive disorder, single episode, unspecified; G25.81 Restless legs syndrome; E66.01 Morbid (severe) obesity due to excess calories; E78.5 Hyperlipidemia, unspecified; I10 Essential (primary) hypertension; J45.909 Unspecified asthma, uncomplicated
CPT/HCPCS: 87081; 88302; 88307; 94664

== ENCOUNTER 2018-10-29 14:05 | Emergency (ER) | payer MEDICARE, MEDICAID ==
[~2018-10-29] VITALS: Ht 157.5 cm; Wt 117.9 kg
[2018-10-29 14:46] LABS: BILIRUBIN,URINE NEGATIVE (NEGATIVE); CLARITY,URINE CLEAR; COLOR,URINE AMBER; GLUCOSE, URINE (UA) NEGATIVE (NEGATIVE); KETONES,URINE NEGATIVE (NEGATIVE); LEUKOCYTE ESTERASE ,URINE 1+ (NEGATIVE); NITRITE,URINE NEGATIVE (NEGATIVE); PH,URINE 5 (5-9); PROTEIN,URINE 2+ (NEGATIVE); UROBILINOGEN,URINE NORMAL (NORMAL)
[2018-10-29 14:59] LABS: BACTERIA,URINE MODERATE /HPF
[2018-10-29 15:04] LABS: BASOPHILS % (AUTO) 0 % (0-10); EOSINOPHILS # (AUTO) 0.4 10^3/uL (0.0-0.3); EOSINOPHILS % (AUTO) 4 % (0-10); HEMATOCRIT 39 % (35-52); HEMOGLOBIN 12.3 G/DL (11.5-16.0); LYMPHOCYTES # (AUTO) 2.5 X 10^3 (1.0-4.0); LYMPHOCYTES % (AUTO) 23 % (12-44); MEAN CORPUSCULAR HEMOGLOBIN 27 PG (25-34); MEAN CORPUSCULAR HGB CONC 32 G/DL (32-36); MEAN CORPUSCULAR VOLUME 86 FL (80-99); MEAN PLATELET VOLUME 9.7 FL (7.4-10.4); MONOCYTES # (AUTO) 0.6 X 10^3 (0.0-1.0); MONOCYTES % (AUTO) 6 % (0-12); NEUTROPHILS # (AUTO) 7.4 X 10^3 (1.8-7.8); NEUTROPHILS % (AUTO) 67 % (42-75); PLATELET COUNT 323 10^3/uL (130-400); RED CELL DISTRIBUTION WIDTH 13.8 % (10.0-14.5)
[2018-10-29] MEDS ORDERED: morphine INJ 10 MG/ML 1ML (SYR OR VIAL) IVP STA ×2 (15:07→16:01)
[2018-10-29 15:17] LABS: ALANINE AMINOTRANSFERASE 29 U/L (0-55); ALBUMIN 4.3 GM/DL (3.2-4.5); ALKALINE PHOSPHATASE 72 U/L (40-136); AMYLASE 43 U/L (25-125); BILIRUBIN,TOTAL 0.4 MG/DL (0.1-1.0); BUN/CREATININE RATIO 16; CALCIUM 10.2 MG/DL (8.5-10.1); CARBON DIOXIDE 21 MMOL/L (21-32); CHLORIDE 107 MMOL/L (98-107); CREATININE SERUM 1.04 MG/DL (0.60-1.30); GFR ESTIMATED > 60; GLUCOSE 106 MG/DL (70-105); LIPASE 29 U/L (8-78); SODIUM 143 MMOL/L (135-145)
--- NOTE | 2018-10-29 15:58 | Diagnostic Imaging Report ---
INDICATION: Abdominal pain. TIME OF EXAM: 03:34 p.m. FINDINGS: There is linear atelectasis or scarring in left mid lung. No free air is seen. There are postsurgical changes with midline bing in the pelvis. Surgical clips in the upper right abdomen are also seen. The bowel gas pattern appears nonobstructive. No unexpected radiopaque foreign objects are seen. IMPRESSION: Postop changes. No acute feature is detected. Dictated by: Dictated on workstation # [id number]
[2018-10-29] MEDS ORDERED: ONDANSETRON 4 MG/2 ML (SDV) Z0FRAN IVP ONE (16:15)
--- NOTE | 2018-10-29 16:32 | ED GU-Female ---
General Chief Complaint: Abdominal/GI Problems Stated Complaint: ABD PAIN Nursing Triage Note: PT AMB TO TRIAGE WITH COMPLAINT OF LEFT SIDED ABD PAIN. STATES PAIN RADIATES DOWN TO GROIN. PT STATES SHE HAD SX A WEEK AGO, REPLACING ABD MESH DONE BY DR ROMAN. STATES SHE IS TAKING PRESCRIBED HYDROCODONE, BUT IS NOT HELPING. PT STATES SHE SAW [facility] YESTERDAY AND INSTRUCTED TO UP PAIN MEDICINE. Nursing Sepsis Screen: No Definite Risk Source: patient Exam Limitations: no limitations History of Present Illness Date Seen by Provider: October 29, 2018 Time Seen by Provider: 14:50 Initial Comments 33-year-old female who presents to emergency room with complaints of left-sided abdominal pain for the past 2 days. She had a reconstructive surgery done last week by Dr. Roman and is prescribed hydrocodone but reports they're not helping. She reports they're prescribed every 6 hours so she has been taking them twice a day. She reports that she saw Dr. Roman yesterday for a checkup informed him of the pain that she has been having. She denies fevers, hematuria , burning with urination. Timing/Duration: week Location: [facility] Associated Symptoms: abdominal pain Allergies and Home Medications Allergies Coded Allergies: fentanyl (Verified Allergy, Unknown, 10/16/18) meperidine (Verified Allergy, Unknown, 10/16/18) penicillin G (Verified Allergy, Unknown, 10/16/18) vancomycin (Unverified Adverse Reaction, Intermediate, severe itching, 10/16) Home Medications Cyanocobalamin 1,000 Mcg/Ml Inj, 1,000 MCG IJ MONTHLY, (Reported) Estradiol 1 Mg Tablet, 1 MG PO HS, (Reported) Hydrocodone/Acetaminophen 1 Each Tablet, 1 EA PO Q6HR PRN for PAIN-MODERATE Prescribed by: LINDSEY ROMAN on 10/23/18 1307 Metoprolol Succinate 25 Mg Tab.er.24h, 25 MG PO HS, (Reported) Omeprazole 40 Mg Capsule.dr, 40 MG PO DAILY, (Reported) Ondansetron 8 Mg Tab.rapdis, 8 MG PO BID PRN for NAUSEA/VOMITING-1ST LINE, ( Reported) Ropinirole HCl 4 Mg Tablet, 4 MG PO HS, (Reported) Sertraline HCl 50 Mg Tablet, 50 MG PO HS, (Reported) Tizanidine HCl 4 Mg Tablet, 4 MG PO TID PRN for MUSCLE SPASMS, (Reported) Patient Home Medication List Home Medication List Reviewed: Yes Review of Systems Review of Systems Constitutional: see HPI; No chills, No fever Gastrointestinal: see HPI, abdominal pain (LLQ) All Other Systemes Reviewed Negative Unless Noted: Yes Past Vzdmkxx-Wutrjf-Mjrbcx Hx Past Med/Social Hx: Reviewed Nursing Past Med/Soc Hx Patient Social History Alcohol Use: Denies Use Recreational Drug Use: No Smoking Status: Never a Smoker Type Used: Cigarettes 2nd Hand Smoke Exposure: No Recent Foreign Travel: No Contact w/Someone Who Travel: No Recent Infectious Disease Expo: No Recent Hopitalizations: Yes (10/22/18 ABD SX) Immunizations Up To Date Tetanus Booster (TDap): Unknown PED Vaccines UTD: No Date of Pneumonia Vaccine: May 17, 2012 Date of Influenza Vaccine: Jul 03, 2012 Seasonal Allergies Seasonal Allergies: Yes (MILD) Past Medical History Surgeries: Yes (LEFT NEPHRECTOMY; INCISIONAL HERNIA REPAIR; EGD'S AND COLONOSCOPIES) Abdominal, Adenoidectomy, Appendectomy, Gallbladder, 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, Nephrectomy, Orthopedic, Tonsillectomy Respiratory: Yes Asthma Currently Using CPAP: No Currently Using BIPAP: No Cardiac: Yes Hypertension Neurological: Yes (RESTLESS LEG SYNDROME) Headaches /Migraines 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: No (HX ENDOMETRIOSIS ) 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 Sexually Transmitted Disease: No HIV/AIDS: No Genitourinary: Yes (L KIDNEY REMOVED FOR TUMOR-MALIGNANT;) UTI-Chronic Gastrointestinal: Yes Abdominal Hernia, Liver Disease/Jaundice, Pancreatitis, Polyps Musculoskeletal: Yes (COCCYX-REPAIRED, ) Chronic Back Pain Endocrine: Yes (CHRONIC PANCREATITIS; OBESITY) HEENT: No Loss of Vision: Denies Hearing Impairment: Denies Cancer: Yes Kidney Did You Recieve Any Treatments: Yes What Type of Treatment Did You: Surgical Intervention Psychosocial: Yes Anxiety, Depression Integumentary: Yes Herpes Blood Disorders: No Adverse Reaction/Blood Tranf: No (N/A) Family Medical History Reviewed Nursing Family Hx Cardiovascular disease 19 FATHER Completed stroke 19 FATHER Diabetes mellitus 19 FATHER Hypercholesterolemia 19 FATHER 19 MOTHER Hypertension 19 FATHER 19 MOTHER Neoplasm 19 MOTHER Psychosocial problem 19 FATHER 19 MOTHER No Pertinent Family Hx, Cancer, Diabetes, Hypertension Physical Exam Vital Signs Vital Signs - First Documented 10/29/18 14:12 Temp 97.9 Pulse 95 Resp 20 B/P (MAP) 124/75 (91) Pulse Ox 97 O2 Delivery Room Air Capillary Refill : Less Than 3 Seconds Height, Weight, BMI Height: 5'2.00" Weight: 260lbs. 0.0oz. 117.274618hj; 47.6 BMI Method:Stated General Appearance: WD/WN, no apparent distress Cardiovascular: normal peripheral pulses, regular rate, rhythm, no edema, no gallop, no JVD, no murmur Respiratory: chest non-tender, lungs clear, normal breath sounds, no respiratory distress, no accessory muscle use, respiratory distress Gastrointestinal: normal bowel sounds, soft, no organomegaly, no pulsatile mass , tenderness (left lower quadrant tenderness) Neurologic/Psychiatric: alert, normal mood/affect, oriented x 3 Skin: normal color, warm/dry Progress/Results/Core Measures Suspected Sepsis Recent Fever Within 48 Hours: No Infection Criteria Present: None New/Unexplained Altered Menta: No Sepsis Screen: No Definite Risk SIRS Temperature:97.9 Pulse: 95 Respiratory Rate: 20 Laboratory Tests 10/29/18 14:27: White Blood Count 11.0 Blood Pressure 124 /75 Mean: 91 Laboratory Tests 10/29/18 14:27: Creatinine 1.04, Platelet Count 323, Total Bilirubin 0.4 Results/Orders Lab Results Laboratory Tests Test 10/29/18 14:27 10/29/18 14:31 Range/Units White Blood Count 11.0 4.3-11.0 10^3/uL Red Blood Count 4.54 4.35-5.85 10^6/uL Hemoglobin 12.3 11.5-16.0 G/DL Hematocrit 39 35-52 % Mean Corpuscular Volume 86 80-99 FL Mean Corpuscular Hemoglobin 27 25-34 PG Mean Corpuscular Hemoglobin Concent 32 32-36 G/DL Red Cell Distribution Width 13.8 10.0-14.5 % Platelet Count 323 130-400 10^3/uL Mean Platelet Volume 9.7 7.4-10.4 FL Neutrophils (%) (Auto) 67 42-75 % Lymphocytes (%) (Auto) 23 12-44 % Monocytes (%) (Auto) 6 0-12 % Eosinophils (%) (Auto) 4 0-10 % Basophils (%) (Auto) 0 0-10 % Neutrophils # (Auto) 7.4 1.8-7.8 X 10^3 Lymphocytes # (Auto) 2.5 1.0-4.0 X 10^3 Monocytes # (Auto) 0.6 0.0-1.0 X 10^3 Eosinophils # (Auto) 0.4 H 0.0-0.3 10^3/uL Basophils # (Auto) 0.0 0.0-0.1 10^3/uL Sodium Level 143 135-145 MMOL/L Potassium Level 4.0 3.6-5.0 MMOL/L Chloride Level 107 98-107 MMOL/L Carbon Dioxide Level 21 21-32 MMOL/L Anion Gap 15 H 5-14 MMOL/L Blood Urea Nitrogen 17 7-18 MG/DL Creatinine 1.04 0.60-1.30 MG/DL Estimat Glomerular Filtration Rate > 60 BUN/Creatinine Ratio 16 Glucose Level 106 H 70-105 MG/DL Calcium Level 10.2 H 8.5-10.1 MG/DL Corrected Calcium 10.0 8.5-10.1 MG/DL Total Bilirubin 0.4 0.1-1.0 MG/DL Aspartate Amino Transf (AST/SGOT) 39 H 5-34 U/L Alanine Aminotransferase (ALT/SGPT) 29 0-55 U/L Alkaline Phosphatase 72 40-136 U/L Total Protein 8.0 6.4-8.2 GM/DL Albumin 4.3 3.2-4.5 GM/DL Amylase Level 43 25-125 U/L Lipase 29 8-78 U/L Urine Color PEREZ H Urine Clarity CLEAR Urine pH 5 5-9 Urine Specific [place] 1.020 1.016-1.022 Urine Protein 2+ H NEGATIVE Urine Glucose (UA) NEGATIVE NEGATIVE Urine Ketones NEGATIVE NEGATIVE Urine Nitrite NEGATIVE NEGATIVE Urine Bilirubin NEGATIVE NEGATIVE Urine Urobilinogen NORMAL NORMAL MG/DL Urine Leukocyte Esterase 1+ H NEGATIVE Urine RBC (Auto) NEGATIVE NEGATIVE Urine RBC NONE /HPF Urine WBC 2-5 /HPF Urine Squamous Epithelial Cells 10-25 H /HPF Urine Crystals NONE /LPF Urine Bacteria MODERATE H /HPF Urine Casts NONE /LPF Urine Mucus MODERATE H /LPF Urine Culture Indicated YES Micro Results Microbiology 10/29/18 Urine Culture - Final, Complete NO GROWTH My Orders Orders - BERNOT,DEMETRIO Ua Culture If Indicated (10/29/18 14:40) Comprehensive Metabolic Panel (10/29/18 14:57) Lipase (10/29/18 14:57) Amylase (10/29/18 14:57) Ed Iv/Invasive Line Start (10/29/18 14:57) Cbc With Automated Diff (10/29/18 14:57) Urine Culture (10/29/18 14:31) Morphine Injection (Morphine Injection (10/29/18 15:07) Acute Abd Series (10/29/18 15:09) Ondansetron Injection (Zofran Injectio (10/29/18 16:15) Morphine Injection (Morphine Injection (10/29/18 16:01) Iv Push Emergency Room Clinician Ed (10/29/18 ) Medications Given in ED Vital Signs/I&O Capillary Refill : Less Than 3 Seconds Blood Pressure Mean: 91 Progress Note : Time: 16:35 Progress Note I have seen and evaluated the patient. I've informed her of her laboratory and imaging studies. She is pain-free at this time and agrees with plans of discharge. It was reinforced how important it is to take the medication as previously prescribed to not let her pain become too and bearable. Return precautions were given. Departure Impression Primary Impression: Postoperative abdominal pain Disposition: HOME, SELF-CARE Condition: Stable/Unchanged Departure-Patient Inst. Decision time for Depature: 16:32 Referrals: CARMEN GIBBS MD (PCP/Family) Primary Care Physician Patient Instructions: Acute Abdomen (Belly Pain) Add. Discharge Instructions: Take your prescribed medication every 6 hours as needed for pain. Follow-up with Dr. Roman's office within 1 week for recheck. Return back to the emergency room for worsening symptoms or concerns as needed. All discharge instructions reviewed with patient and/or family. Voiced understanding. DEMETRIO KAY October 29, 2018 16:32
[2018-10-29 17:05] VITALS: BP 106/52
== END 2018-10-29 17:05 | disposition home or self-care (01) ==
LOC: EDUNIT# 14:05 → ER 14:06
DX: G89.18 Other acute postprocedural pain (principal); R10.32 Left lower quadrant pain; J45.909 Unspecified asthma, uncomplicated; G25.81 Restless legs syndrome; I10 Essential (primary) hypertension; G43.909 Migraine, unspecified, not intractable, without status migrainosus; E66.9 Obesity, unspecified; F41.9 Anxiety disorder, unspecified; F32.9 Major depressive disorder, single episode, unspecified; Z86.19 Personal history of other infectious and parasitic diseases; Z82.49 Family history of ischemic heart disease and other diseases of the circulatory system; Z85.528 Personal history of other malignant neoplasm of kidney; Z86.010 Personal history of colon polyps; Z87.19 Personal history of other diseases of the digestive system; Z87.440 Personal history of urinary (tract) infections; Z87.448 Personal history of other diseases of urinary system; Z88.0 Allergy status to penicillin; Z88.1 Allergy status to other antibiotic agents; Z88.8 Allergy status to other drugs, medicaments and biological substances; Z98.890 Other specified postprocedural states; Z90.89 Acquired absence of other organs; Z90.49 Acquired absence of other specified parts of digestive tract; Z90.710 Acquired absence of both cervix and uterus; Z90.5 Acquired absence of kidney
CPT/HCPCS: 36415; 74022; 80053; 81000; 82150; 83690; 85025; 87088; 96374; 96375; 96376

== ENCOUNTER 2018-11-11 09:19 | Emergency (ER) | payer MEDICARE, MEDICAID ==
[~2018-11-11] VITALS: Ht 157.5 cm; Wt 117.9 kg
--- OUTSIDE RECORDS SUMMARY | 2018-11-11 09:28 | XMS REPORT | Encounter Summary ---
Author Author [facility] Organization [facility] Address Unknown Phone Unavailable Care Team Providers Care Fruit Grader Operator Name Role Phone Michael Sutton MD Unavailable Unavailable Mary Whittington MD PCP Jessica Valera Unavailable Maggie Puente Unavailable Unavailable Mary Telles APRN Unavailable Bam Ritter MD Unavailable Radha Bo LPN Unavailable Unavailable Jose Sanchez MD Unavailable Encounter Details Care Team Description Date Type Department Jessica Valera ARNP [address] [facility] [address] [place] [address] 10/14/2018 Telephone [facility] [address] [place] [address] Social History Date Tobacco Use [...] is currently admitted to the hospital at [facility] in [place], [place]. States "they saw signs of a bowel perforation on CT," and "I have a tube up my nose." She will follow-up upon release from the hospital. Routing to Jessica Valera to inform. * Telephone Encounter - Melinda Gan - 10/15/2018 1:31 PM CDT Called patient 10/14/18, she stated she was currently in the ED due to severe rohan n. Will allow ED workup and follow-up with pt tomorrow. Late documentation. * Telephone Encounter - Jessica Valera ARNP - 10/14/2018 1:16 PM CDT Call pt. She is very complex and has not been seen since 03/2018. Find out what her specific symptoms are then can update Dr. Nunez to see if he has any rec ommendations. She no showed her appointment with him in 06/2018. * Telephone Encounter - Jessica Valera ARNP - 10/14/2018 1:16 PM CDT Regarding: FW: Prescription Question Contact: ----- Message ----- From: Janeth Finley Sent: 10/14/2018 9:33 AM To: Gi Im Felix Nurse Giovanna Subject: Prescription Question ----- Message from Felix Mychart, Generic sent at 10/14/2018 9:33 AM CDT ----- Nitin Thornton it's Janeth finley I was just letting you know I've been taking that medicine every day and my stomach is still killing me really bad upset in the hu nger pains and everything still I'm so if you can give me a call back or email m e don't matter I'm trying to get into dr. Whittington to see if she can try something if not I don't know what else to do and so just let me know thanks nanette documented in this encounter Plan of Treatment Not on filedocumented as of this encounter Visit Diagnoses Not on filedocumented in this encounter
--- OUTSIDE RECORDS SUMMARY | 2018-11-11 09:28 | XMS REPORT | Encounter Summary ---
Author Author [facility] Organization [facility] Address Unknown Phone Unavailable Care Team Providers Care Automation Specialist Name Role Phone Michael Sutton MD Unavailable Unavailable Mary Whittington MD PCP Jessica Valera Unavailable Maggie Puente Unavailable Unavailable Mary Telles APRN Unavailable Bam Ritter MD Unavailable Radha Bo LPN Unavailable Unavailable Jose Sanchez MD Unavailable Reason for Visit * Reason Comments Medication Refill Encounter Details Care Team Description Date Type Department Jessica Valera ARNP [address] [facility] [address] [place] [address] Chronic nausea; Chronic vomiting 09/09/2018 Refill [facility] [address] [place] [address] Social History Date Tobacco Use [...]
--- OUTSIDE RECORDS SUMMARY | 2018-11-11 09:28 | XMS REPORT | Encounter Summary ---
Author Author [facility] Organization [facility] Address Unknown Phone Unavailable Care Team Providers Care Flame Burner Name Role Phone Michael Sutton MD Unavailable Unavailable Mary Whittington MD PCP Jessica Valera Unavailable Maggie Puente Unavailable Unavailable Mary Telles APRN Unavailable Bam Ritter MD Unavailable Radha Bo LPN Unavailable Unavailable Jose Sanchez MD Unavailable Reason for Visit * Reason Comments Referral Encounter Details Care Team Description Date Type Department Abel Poe MD [address] [place] [address] [phone] Referral 09/25/2018 Telephone [facility] [address] [address] Social History Date Tobacco Use Types Packs/Day [...] surgeon who Dr. Poe would recommend for her domenico repair. Her outside physician wants to refer her to for surgery. Inform ed her that Dr. Poe usually refers to general surgery- Dr. Stanford Hood or one of his colleagues. Pt took down the name and will let her physician in [place] know. documented in this encounter Plan of Treatment Not on filedocumented as of this encounter Visit Diagnoses Not on filedocumented in this encounter
--- OUTSIDE RECORDS SUMMARY | 2018-11-11 09:28 | XMS REPORT | Encounter Summary ---
Author Author [facility] Organization [facility] Address Unknown Phone Unavailable Care Team Providers Care Online Merchant Name Role Phone Michael Sutton MD Unavailable Unavailable Mary Whittington MD PCP Jessica Valera Unavailable Maggie Puente Unavailable Unavailable Mary Telles APRN Unavailable Bam Ritter MD Unavailable Radha Bo LPN Unavailable Unavailable Jose Sanchez MD Unavailable Encounter Details Care Team Description Date Type Department Melina Vargas Diarrhea, unspecified type 08/29/2018 Orders Only [facility] [address] [place] [address] Social History Date Tobacco Use [...]
--- OUTSIDE RECORDS SUMMARY | 2018-11-11 09:28 | XMS REPORT | Encounter Summary ---
Author Author [facility] Organization [facility] Address Unknown Phone Unavailable Care Team Providers Care House Officer Name Role Phone Michael Sutton MD Unavailable Unavailable Mary Whittington MD PCP Jessica Valera Unavailable Maggie Puente Unavailable Unavailable Mary Telles CONFERENCE SPECIALIST Unavailable Bam Ritter MD Unavailable Radha Bo LPN Unavailable Unavailable Jose Sanchez MD Unavailable Reason for Visit * Auth/Cert Referred By Contact Referred To Contact Status Reason Specialty Diagnoses / Procedures Diagnoses Chronic pancreatitis, unspecified pancreatitis type (HCC) Nausea Generalized abdominal pain Chronic pancreatitis, unspecified pancreatitis type (HCC) [K86.1] Nausea [R11.0] Generalized abdominal pain [R10.84] P rocedures CT EGD TRANSORAL BIOPSY SINGLE/MULTIPLE CT EDG US EXAM SURGICAL ALTER STOM DUODENUM/JEJUNUM ESOPHAGOGASTRODUOD ENOSCOPY WITH BIOPSY - FLEXIBLE ESOPHAGOGASTRODUOD ENOSCOPY WITH ENDOSCOPIC ULTRASOUND EXAMINATION - FLEXIBLE Encounter Details Care Team Description Date Type Department Ekaterina Chairez CRNA [id number] [place], [place] [id number] 08/22/2018 Anesthesia [facility] [address] [place] [address] Anesthesia Record Responsible Anesthesiologist Anesthesia [...] Janice Dickerson MD - 08/22/2018 8:52 AM PIT SLAGMAN Post-Anesthesia Evaluation Name: Janeth Rajput : 1985 [...] Perioperative Event: No Emergency Case Activation: No SLAGMAN * Anesthesia Preprocedure Evaluation - Nuzhat Rudolph CRNA - 08/22/2018 7:04 AM PIT SLAGMAN Anesthesia Pre-Procedure Evaluation Name: Janeth Rajput : [...] mg by mouth every 6 hours as ne eded for Pain (patient does not take more than four per day). Max of 4,000 mg of acetaminophen in 24 hours. cyanocobalamin (VITAMIN B-12, RUBRAMIN) 1,000 mcg/mL injection INJECT 1 ML INTRA MUSCULARLY EVERY 30 DAYS. cyclobenzaprine (FLEXERIL) 10 mg tablet Every 8HRS diphenhydrAMINE (BENADRYL ALLERGY) 25 mg tablet Take 50 mg by mouth every 6 hour s as needed. estradiol (ESTRACE) 2 mg tablet [...] dissolve tablet Dissolve 1 tablet by mouth t wice daily. Place on tongue to disolve. prochlorperazine [...] complications (pt requests IV zofran and benadryl pre-o p as it has helped in the past ) No family history of anesthetic complications Airway Short neck, large neck circumference Pulmonary Asthma (mild asthma, does not use inhaler, occasional nebulizer use) Loud snoring; Patient reports sleep study ~ 2 years ago which was negative f or sleep apnea Cardiovascular Exercise tolerance: >4 METS DVT (from PICC line, resolved) GI/Hepatic/Renal GERD, well controlled Renal disease (renal CA, s/p left nephrectomy 2015): prior nephrectomy Nausea Vomiting Incisional hernia repair at site of left nephrectomy, with fluid collecting chronically Chronic pancreatitis Intermittent N/V; Denies N/V today H/o cholecystectomy Neuro/Psych Psychiatric history (h/o suicide attempt in past; No current suicidial ideat ions ) Depression RLS Musculoskeletal - negative Endocrine/Other [...] Consent: consented Plan discussed with: anesthesiologist and WEIGHT RECORDER. Comments: (Pt reports fentanyl and demerol allergy, says they cause itching and hallucinations. Reports she received benadryl for her last procedure and receive d fentanyl and had no adverse outcomes.) SLAGMAN documented in this encounter Plan of Treatment Not on filedocumented as of this encounter Visit Diagnoses Not on filedocumented in this encounter Administered Medications Action Date Dose Rate Site Medication Order MAR Action 08/22/2018 8:18 AM PIT SLAGMAN 120 mg lidocaine (PF) injection Given INTRA-PROCEDURE MED, Starting Sat08/22/18 at 0818, Until Sat08/22/18 at 0834, Anesthesia Intra-op 08/22/2018 8:18 AM PIT SLAGMAN 4 mg ondansetron (ZOFRAN) injection Given INTRA-PROCEDURE MED, Starting Sat08/22/18 at 0818, Until Sat08/22/18 at 0834, Anesthesia Intra-op 08/22/2018 8:24 AM PIT SLAGMAN 140 mcg/kg/min 102.9 mL/hr propofol (DIPRIVAN) infusion Dose/Rate 50 mL, Intravenous, INTRA-PROCEDURE Change MED(CONT), Starting Sat08/22/18 at 0819, Until Sat08/22/18 at 0834, Anesthesia Intra-op 130 mcg/kg/min 95.6 mL/hr Dose/Rate Change 08/22/2018 8:22 AM PIT SLAGMAN 120 mcg/kg/min 88.2 mL/hr Given - New Bag 08/22/2018 8:19 AM PIT SLAGMAN 08/22/2018 8:26 AM PIT SLAGMAN 10 mg propofol (DIPRIVAN) injection Given INTRA-PROCEDURE MED, Starting Sat08/22/18 at 0819, Until Sat08/22/18 at 0834, Anesthesia Intra-op 20 mg Given 08/22/2018 8:25 AM PIT SLAGMAN 20 mg Given 08/22/2018 8:23 AM PIT SLAGMAN documented in this encounter
--- OUTSIDE RECORDS SUMMARY | 2018-11-11 09:28 | XMS REPORT | Clinical Summary ---
Author Author [facility] Organization [facility] Address Unknown Phone Unavailable Care Team Providers Care Transfer Man Name Role Phone Michael Sutton MD Unavailable Unavailable Mary Whittington MD PCP Jessica Valera Unavailable Maggie Puente Unavailable Unavailable Mary Telles APRN Unavailable Bam Ritter MD Unavailable Radha Bo LPN Unavailable Unavailable Jose Sanchez MD Unavailable Source Comments Some departments are not documenting in the electronic medical record. If you d o not see the information that you expected, contact Release of Information in [facility] Information Management department at [phone] for further assistan ce in locating additional records.[facility] Allergies Comments Active Allergy Reactions Severity [...] capsule by 9 mouth daily before breakfast. Active Problems Problem Noted Date Other chronic pancreatitis 01/14/2018 Overview: Added automatically from request for surgery [id number] Intractable vomiting with nausea 01/14/2018 Overview: Added automatically from request for surgery [id number] Left renal mass 04/10/2017 Renal mass 03/21/2017 Overview: Added automatically from request for surgery [id number] 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 06/24/2013 Overview: S/P HOLLAND, BSO 11/27 Depression 06/24/2013 S/P cholecystectomy 06/24/2013 Overview: 2007 S/P appendectomy 06/24/2013 Overview: November 2012 Pancreatitis 10/23/2011 Encounters Care Team Description Date Type Specialty Jessica Valera ARNP 10/14/2018 Telephone Gastroenterology Abel Poe MD Referral 09/25/2018 Telephone Oncology Jessica Valera ARNP Chronic nausea; Chronic vomiting 09/09/2018 Refill Gastroenterology Melina Vargas Diarrhea, unspecified type 08/29/2018 Orders Only Gastroenterology Ekaterina Chairez, SAKINA 08/22/2018 Anesthesia Event Hal Sparks MD ESOPHAGOGASTRODUODENOSCOPY [...] Taken Vital Sign Reading 08/22/2018 8:50 AM SANDING MACHINE TENDER Blood Pressure 115/86 08/22/2018 8:54 AM SANDING MACHINE TENDER Pulse 89 08/22/2018 8:30 AM SANDING MACHINE TENDER Temperature 36.8 C (98.2 F) 05/19/2018 1:06 PM SANDING MACHINE TENDER Respiratory Rate 18 08/22/2018 8:53 AM SANDING MACHINE TENDER Oxygen Saturation 96% - Inhaled Oxygen - Concentration 08/22/2018 7:00 AM SANDING MACHINE TENDER Weight 122.5 kg (270 lb) 08/22/2018 7:00 AM SANDING MACHINE TENDER Height 157.5 cm (5' 2") 08/22/2018 7:00 AM SANDING MACHINE TENDER Body Mass Index 49.38 Plan of Treatment Health Maintenance Due Date Last Done Comments PHYSICAL (COMPREHENSIVE) 1991 EXAM HIV SCREENING 1999 DTAP/TDAP VACCINES (1 - 2002 Tdap) CERVICAL CANCER SCREENING 2014 INFLUENZA VACCINE 03/17/2019 06/03/2018 Procedures Comments Procedure Name Priority Date/Time Associated Diagnosis C DIFFICILE BY PCR Routine 08/26/2018 Diarrhea, unspecified type ESOPHAGOGASTRODUODENOSCOP 08/22/2018 Chronic pancreatitis, Y WITH ENDOSCOPIC 8:00 AM SANDING MACHINE TENDER unspecified pancreatitis ULTRASOUND EXAMINATION - type (HCC) [...] () ENDOSCOPIC ULTRASOUND 08/22/2018 REPORT 7:47 AM SANDING MACHINE TENDER from Last 3 Months Results * C DIFFICILE BY PCR (08/26/2018) Narrative Performed At Performing Organization Address City/State/Zipcode Phone Number OTHER OUTSIDE LAB * ENDOSCOPIC ULTRASOUND REPORT (08/22/2018 7:47 AM SANDING MACHINE TENDER) Provation Patient Name: Regulo WILKS OTHER Report Procedure Date: 08/22/2018 7:47 RESULTS AM CSN: [id number] Date of : 1985 Gender: Female Attending Physician: Hal Sparks MD Procedure: Upper EUS Indications: Epigastric abdominal pain, Family h/o chronic pancreatitis, pancreas divisum Providers: Hal Sparks MD (Doctor), Lorenza Powers RN (Nurse), Ana Fuentes (Licensed Embalmer) Referring Physician: Randy Viveros MD Medications: Monitored [...] 55 seconds Procedure Code(s): --- Professional --- 50990, Esophagogastroduodenoscopy, flexible, transoral; with endoscopic ultrasound examination limited to the esophagus, stomach or duodenum, and adjacent structures CPT copyright 2017 [employer]. All rights reserved. The codes documented in this report are preliminary and upon project management instructor review may be revised to meet current [...] Present B AETNA MEDICAID AETNA xxxxxxxxxxx 2018-P [facility] Advance Directives Patient has advance care planning documents, and code status on file. For more i nformation, please contact: [facility] [address] [place] [address] Date Inactivated Comments Code Status Date Activated 04/11/2017 4:57 PM Full Code 04/10/2017 5:31 PM Provider has discussed Code Status No, discussion not w/Patient or Family? necessary based on Dx
--- OUTSIDE RECORDS SUMMARY | 2018-11-11 09:29 | XMS REPORT | Encounter Summary ---
Author Author [facility] Organization [facility] Address Unknown Phone Unavailable Care Team Providers Care Vp [employer] Marketing [employer] Name Role Phone Michael Sutton MD Unavailable [...] [R11.0] Generalized abdominal pain [R10.84] P rocedures AL EGD TRANSORAL BIOPSY SINGLE/MULTIPLE AL EDG US EXAM SURGICAL ALTER STOM DUODENUM/JEJUNUM ESOPHAGOGASTRODUOD ENOSCOPY WITH BIOPSY - FLEXIBLE ESOPHAGOGASTRODUOD ENOSCOPY WITH ENDOSCOPIC ULTRASOUND EXAMINATION - FLEXIBLE Encounter Details Care Team Description Date Type Department Hal Sparks MD [address] [facility] [address] [place] [address] Chronic pancreatitis, unspecified pancreatitis type (HCC) 08/22/2018 [facility] [address] [place] [address] Social History Date Tobacco Use [...] Taken Vital Sign Reading 08/22/2018 8:50 AM ONCOLOGY PHYSICIAN Blood Pressure 115/86 08/22/2018 8:54 AM ONCOLOGY PHYSICIAN Pulse 89 08/22/2018 8:30 AM ONCOLOGY PHYSICIAN Temperature 36.8 C (98.2 F) - Respiratory Rate - 08/22/2018 8:53 AM ONCOLOGY PHYSICIAN Oxygen Saturation 96% - Inhaled Oxygen - Concentration 08/22/2018 7:00 AM ONCOLOGY PHYSICIAN Weight 122.5 kg (270 lb) 08/22/2018 7:00 AM ONCOLOGY PHYSICIAN Height 157.5 cm (5' 2") 08/22/2018 7:00 AM ONCOLOGY PHYSICIAN Body Mass Index 49.38 documented in this [...] Mary Lechuga RN - 08/22/2018 8:46 AM ONCOLOGY PHYSICIAN EGD/Upper EUS/ERCP/Antegrade Enteroscopy Post Upper Endoscopy Instructions -You may have a sore throat after the procedure for 2-3 days. Try sucrets or lo zenges to help ease the pain. If it continues please contact us. -If you feel feverish, have a temperature of 101 degrees or higher, persistent n ausea and vomiting, abdominal pain or dark stools; please notify your nurse or G I physician. -You may have abdominal cramping following the procedure this can be relieved by belching or passing air. -If you have redness or swelling at the IV site, place a warm, wet washcloth ove r the affected areas for 15 minutes, 3-4 times a day until the redness subsides. If symptoms continue for 2-3 days, contact your regular physician. - If you have bleeding from your mouth, over 2 tablespoons and increasing, pleas e notify your physician. A small amount of bleeding is normal if a biopsy or po lyps were taken. If you are vomiting blood you need to seek immediate medical a ttention. - You may resume all your routine medications, if medications need to be held yo ur physician and/or nurse will notify you post [...] or concerns after your procedure please call [phone] M-F 8am-5:00 pm. After 5:00 pm, holidays or weekends call [phone] a nd ask for the GI Doctor architectural sales consultant. LOGY PHYSICIAN documented in this encounter Medications at Time [...] Joel Cantu MD - 08/22/2018 8:12 AM ONCOLOGY PHYSICIAN Pre Procedure History and Physical/Sedation Plan Name:Janeth [...] is a 33 y.o. female with history o f chronic pancreatitis, pancreatic divisum, and strong family history of pancrea tic cancer, returns for EGD and EUS. Previous [...] Penicillins; Demerol (pf) [meperidine (pf)]; Fentanyl; and Vancomyci n Medications Current Facility-Administered Medications Medication sodium chloride [...] Soft, nontender, nondistended, normal bowel sounds, no hepatosplenomega ly appreciated Lower extremities: No edema, good pulses bilaterally Neurologic: Grossly intact, no focal deficits Skin: Warm, dry Airway: per anesthesia Anesthesia Classification: Per Anesthesia NPO Status: Acceptable Status: Not Lab/Radiology/Other Diagnostic Tests Labs: Relevant labs reviewed Joel Cantu MD Pager LOGY PHYSICIAN documented in this encounter Plan of Treatment Not on filedocumented as of this encounter Procedures Comments Procedure Name Priority Date/Time Associated Diagnosis ESOPHAGOGASTRODUODENOSCOP 08/22/2018 Chronic pancreatitis, Y WITH ENDOSCOPIC 8:00 AM ONCOLOGY PHYSICIAN unspecified pancreatitis ULTRASOUND EXAMINATION - type (HCC) [...] () ENDOSCOPIC ULTRASOUND 08/22/2018 REPORT 7:47 AM ONCOLOGY PHYSICIAN documented in this encounter Results * ENDOSCOPIC ULTRASOUND REPORT (08/22/2018 7:47 AM ONCOLOGY PHYSICIAN) Provation Patient Name: Regulo WILKS OTHER Report Procedure Date: 08/22/2018 7:47 RESULTS AM CSN: [id number] Date of : 1985 Gender: Female Attending Physician: Hal Sparks MD Procedure: Upper EUS Indications: Epigastric abdominal pain, Family h/o chronic pancreatitis, pancreas divisum Providers: Hal Sparks MD (Doctor), Lorenza Powers RN (Nurse), Ana Fuentes (Meeting Facilitator) Referring Physician: Randy Viveros MD Medications: Monitored [...] 55 seconds Procedure Code(s): --- Professional --- 18384, Esophagogastroduodenoscopy, flexible, transoral; with endoscopic ultrasound examination limited to the esophagus, stomach or duodenum, and adjacent structures CPT copyright 2017 [employer]. All rights reserved. The codes documented in this report are preliminary and upon flight paramedic review may be revised to meet current [...] Medication Order MAR Action 08/22/2018 7:26 AM ONCOLOGY PHYSICIAN 1,000 mL sodium chloride 0.9 % infusion Given - New 1,000 mL, Intravenous, CONTINUOUS, Bag Starting Sat08/22/18 at 0730, Until Sat08/22/18 at 1121, Pre-Op documented in this encounter
--- OUTSIDE RECORDS SUMMARY | 2018-11-11 09:29 | XMS REPORT | Encounter Summary ---
Author Author [facility] Organization [facility] Address Unknown Phone Unavailable Care Team Providers Care Swine Extension Field Specialist Name Role Phone Michael Sutton MD Unavailable Unavailable Mary Whittington MD PCP Jessica Valera Unavailable Maggie Puente Unavailable Unavailable Mary Telles APRN Unavailable Bam Ritter MD Unavailable Radha Bo LPN Unavailable Unavailable Jose Sanchez MD Unavailable Reason for Visit * Reason Comments Medication Refill Encounter Details Care Team Description Date Type Department Randy Nunez MD [address] Ortho[facility] [address] [place] [address] Medication monitoring encounter 08/18/2018 Refill [facility] [address] [place] [address] Social History Date Tobacco Use [...]
--- OUTSIDE RECORDS SUMMARY | 2018-11-11 09:29 | XMS REPORT | Encounter Summary ---
Author Author [facility] Organization [facility] Address Unknown Phone Unavailable Care Team Providers Care Resistor Tester Name Role Phone Michael Sutton MD Unavailable Unavailable Mary Whittington MD PCP Jessica Valera Unavailable Maggie Puente Unavailable Unavailable Mary Telles PLASTIC CUTTER Unavailable Bam Ritter MD Unavailable Radha Bo LPN Unavailable Unavailable Jose Sanchez MD Unavailable Reason for Visit * Auth/Cert Referred By Contact Referred To Contact Status Reason Specialty Diagnoses / Procedures Diagnoses Chronic pancreatitis, unspecified pancreatitis type (HCC) Nausea Generalized abdominal pain Chronic pancreatitis, unspecified pancreatitis type (HCC) [K86.1] Nausea [R11.0] Generalized abdominal pain [R10.84] P rocedures NE EGD TRANSORAL BIOPSY SINGLE/MULTIPLE NE EDG US EXAM SURGICAL ALTER STOM DUODENUM/JEJUNUM ESOPHAGOGASTRODUOD ENOSCOPY WITH BIOPSY - FLEXIBLE ESOPHAGOGASTRODUOD ENOSCOPY WITH ENDOSCOPIC ULTRASOUND EXAMINATION - FLEXIBLE Encounter Details Care Team Description Date Type Department Hal Sparks MD [address] [facility] [address] [place] [address] ESOPHAGOGASTRODUODENOSCOPY WITH ENDOSCOPIC ULTRASOUND EXAMINATION - FLEXIBLE 08/22/2018 Surgery [facility] [address] [place] [address] Social History Date Tobacco Use [...] Taken Vital Sign Reading 08/22/2018 8:50 AM RESEARCH QUALITY ASSURANCE ANALYST Blood Pressure 115/86 08/22/2018 8:54 AM RESEARCH QUALITY ASSURANCE ANALYST Pulse 89 08/22/2018 8:30 AM RESEARCH QUALITY ASSURANCE ANALYST Temperature 36.8 C (98.2 F) - Respiratory Rate - 08/22/2018 8:53 AM RESEARCH QUALITY ASSURANCE ANALYST Oxygen Saturation 96% - Inhaled Oxygen - Concentration 08/22/2018 7:00 AM RESEARCH QUALITY ASSURANCE ANALYST Weight 122.5 kg (270 lb) 08/22/2018 7:00 AM RESEARCH QUALITY ASSURANCE ANALYST Height 157.5 cm (5' 2") 08/22/2018 7:00 AM RESEARCH QUALITY ASSURANCE ANALYST Body Mass Index 49.38 documented in [...] Mary Lechuga RN - 08/22/2018 8:46 AM RESEARCH QUALITY ASSURANCE ANALYST EGD/Upper EUS/ERCP/Antegrade Enteroscopy Post Upper Endoscopy [...] or concerns after your procedure please call [phone] M-F 8am-5:00 pm. After 5:00 pm, holidays or weekends call [phone] a nd ask for the GI Doctor electronic gluer. ARCH QUALITY ASSURANCE ANALYST documented in this encounter Medications at [...] Joel Cantu MD - 08/22/2018 8:12 AM RESEARCH QUALITY ASSURANCE ANALYST Pre Procedure History and Physical/Sedation Plan [...] Relevant labs reviewed Joel Cantu MD Pager ARCH QUALITY ASSURANCE ANALYST documented in this encounter Plan of Treatment Not on filedocumented as of this encounter Procedures Comments Procedure Name Priority Date/Time Associated Diagnosis ESOPHAGOGASTRODUODENOSCOP 08/22/2018 Chronic pancreatitis, Y WITH ENDOSCOPIC 8:00 AM RESEARCH QUALITY ASSURANCE ANALYST unspecified pancreatitis ULTRASOUND EXAMINATION - type [...] () ENDOSCOPIC ULTRASOUND 08/22/2018 REPORT 7:47 AM RESEARCH QUALITY ASSURANCE ANALYST documented in this encounter Results * ENDOSCOPIC ULTRASOUND REPORT (08/22/2018 7:47 AM RESEARCH QUALITY ASSURANCE ANALYST) Provation Patient Name: Regulo WILKS OTHER Report Procedure Date: 08/22/2018 7:47 RESULTS AM CSN: [id number] Date of : 1985 Gender: Female Attending Physician: Hal Sparks MD Procedure: Upper EUS Indications: Epigastric abdominal pain, Family h/o chronic pancreatitis, pancreas divisum Providers: Hal Sparks MD (Doctor), Lorenza Powers RN (Nurse), Ana Fuentes (Salesperson [employer] Furnishings) Referring Physician: Randy Viveros MD Medications: Monitored [...] 55 seconds Procedure Code(s): --- Professional --- 26658, Esophagogastroduodenoscopy, flexible, transoral; with endoscopic ultrasound examination limited to the esophagus, stomach or duodenum, and adjacent structures CPT copyright 2017 [employer]. All rights reserved. The codes documented in this report are preliminary and upon community director review may be revised to meet [...] Medication Order MAR Action 08/22/2018 7:26 AM RESEARCH QUALITY ASSURANCE ANALYST 1,000 mL sodium chloride 0.9 % infusion Given - New 1,000 mL, Intravenous, CONTINUOUS, Bag Starting Sat08/22/18 at 0730, Until Sat08/22/18 at 1121, Pre-Op documented in this encounter
[2018-11-11] MEDS ORDERED: NS IV 1000 ML 1,000 ML IV ONE (10:34)
--- OUTSIDE RECORDS SUMMARY | 2018-11-11 10:43 | XMS REPORT ---
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 Role Phone Migration, Doctor Unavailable Unavailable PROBLEMS Type Condition ICD9-CM Code MSE14-CT Code Onset Dates Condition Status SNOMED Code Problem Morbid (severe) obesity due to excess calories E66.01 Active 737762947 Problem Chronic tension-type headache, intractable G44.221 Active 110073813 Problem Hirsuties L68.0 Active 696333464 Problem Hyperlipidemia, mixed E78.2 Active 090020195 Problem Chronic pancreatitis K86.1 Active 642748825 Problem FH: polycystic ovary Z84.2 Active 445596909 Problem Polydipsia R63.1 Active 21984499 Problem Asthma J45.909 Active 391078768 Problem Restless leg syndrome G25.81 Active 54097000 Problem Generalized social phobia F40.11 Active 27227493 Problem Chronic post-traumatic stress disorder (PTSD) F43.12 Active 127955880 Problem Obesities, morbid E66.01 Active 491880399 Problem Trichotillomania F63.3 Active 53119762 Problem Nodule of left lung R91.1 Active 313037327 Problem Menopausal symptoms N95.1 Active 65091871 Problem Atelectasis J98.11 Active 03389121 Problem History of renal cell carcinoma Z85.528 Active 019776562 Problem Right carpal tunnel syndrome G56.01 Active 054093984227031 Problem Moderate episode of recurrent major depressive disorder F33.1 Active 291091104 Problem Chronic fatigue R53.82 Active 06179656 Problem Intestinal malabsorption, unspecified K90.9 Active 78638124 Problem Primary osteoarthritis of right knee M17.11 Active [id number] ALLERGIES No Information ENCOUNTERS Encounter Location Date Diagnosis [facility] [address] [facility] [id number] [address] Nov, [facility] [address] [facility] [id number] [address] October, [facility] [address] [facility] [id number] [address] October, [facility] [address] [address] October, [facility] [address] [address] October, [address] [address] October, [facility] [address] [address] October, Morbid obesity E66.01 ; Routine gynecological examination Z01.419 and Menopausal symptoms N95.1 [facility] [address] [address] October, [facility] [place] [address] [address] Sep, [facility] [address], [place] [address] Sep, [facility] [address] [address] Sep, [facility] [address], [place] [address] Sep, [facility] [address], [place] [address] Sep, Lower extremity edema R60.0 [facility] [address] [address] Sep, [facility] [address], [place] [address] Sep, Lower extremity edema R60.0 and Morbid obesity E66.01 [facility] [address], [place] [address] Sep, [facility] [address], [place] [address] Sep, [facility] [address], [place] [address] Aug, [facility] [address] [address] Aug, Obesities, morbid E66.01 and Morbid obesity E66.01 [facility] [address], [place] [address] Aug, [address] [address] Jul, [facility] [id number] [place] [address] Jul, [facility] [id number] [place] [address] Jul, [facility] [id number] [place] [address] Jul, Numbness of right hand R20.0 [facility] [address], [place] [address] Jul, [facility] [address], [place] [address] Jul, Numbness of right hand R20.0 [facility] [address], [place] [address] Jul, [facility] [address], [place] [address] Jul, [facility] [address], [place] [address] Jul, Right-sided thoracic back pain M54.6 [facility] [address], [place] [address] Jul, [facility] [address], [place] [address] Jul, [facility] [id number] [place] [address] Jul, [facility] [id number] [place] [address] Jul, [facility] [id number] [place] [address] Jun, [facility] [id number] [place] [address] Jun, Acute pain of right shoulder M25.511 ; Numbness of right hand R20.0 and Trapezius muscle spasm M62.838 [place] [id number] [place] [address] Jun, [place] [address] [place] [id number] [place] [address] Jun, [place] [address] [id number] [place] [address] Jun, Cough R05 ; BMI 50.0-59.9, adult Z68.43 and Morbid obesity E66.01 [place] [id number] [place] [address] Jun, [place] [id number] [place] [address] Jun, [facility] [id number] [place] [address] Jun, BMI 45.0-49.9, adult Z68.42 and Acute non-recurrent maxillary sinusitis J01.00 [facility] [id number] [place] [address] 09 Jun, 2018 Acute sinusitis J01.90 ; Dysuria R30.0 and BMI 45.0-49.9, adult Z68.42 [place] [id number] [place] [address] Jun, [facility] [id number] [place] [address] Jun, [facility] [id number] [place] [address] May, [facility] [id number] [place] [address] May, [facility] [address] [address] May, [facility] [id number] [place] [address] May, [facility] [address] [address] May, [facility] [id number] [place] [address] Apr, Generalized social phobia F40.11 ; Trichotillomania F63.3 ; Chronic post-traumatic stress disorder (PTSD) F43.12 and BMI 45.0-49.9, adult Z68.42 [place] [id number] [place] [address] Apr, [facility] [id number] [place] [address] Apr, Chronic tension-type headache, intractable G44.221 [facility] [id number] [place] [address] Apr, [facility] [id number] [place] [address] Mar, [facility] [id number] [place] [address] Mar, BMI 45.0-49.9, adult Z68.42 and Pimples R23.8 [facility] [id number] [place] [address] Mar, [facility] [id number] [place] [address] Mar, [facility] [address] [address] Mar, Decreased urination R34 ; Chronic fatigue R53.82 ; Peripheral edema R60.9 ; Diarrhea, unspecified type R19.7 ; Non-intractable vomiting with nausea, unspecified vomiting type R11.2 ; BMI 45.0-49.9, adult Z68.42 and Chronic post-traumatic stress disorder (PTSD) F43.12 [facility] [id number] [place] [address] Mar, Intestinal malabsorption, unspecified K90.9 ; Diarrhea, unspecified R19.7 ; Urinary urgency R39.15 ; Rectal bleeding K62.5 and Decreased urine output R34 [place] [id number] [place] [address] Mar, Decreased urine output R34 [facility] [id number] [place] [address] Mar, Rectal bleeding K62.5 [facility] [id number] [place] [address] Mar, Rectal bleeding K62.5 [facility] [id number] [place] [address] Mar, Urinary urgency R39.15 [facility] [id number] [place] [address] Mar, Urinary urgency R39.15 [facility] [id number] [place] [address] Mar, Primary osteoarthritis of right knee M17.11 and BMI 45.0-49.9, adult Z68.42 [facility] [id number] [place] [address] Mar, [facility] [id number] [place] [address] Feb, Left upper arm pain M79.622 [facility] [id number] [place] [address] Feb, [facility] [id number] [place] [address] Jan, Acute pain of right knee M25.561 ; Right upper quadrant abdominal pain R10.11 and BMI 45.0-49.9, adult Z68.42 [facility] [id number] [place] [address] Jan, [facility] [id number] [place] [address] Jan, [facility] [id number] [place] [address] Dec, [facility] [id number] [place] [address] Dec, Intestinal malabsorption, unspecified K90.9 and Diarrhea, unspecified R19.7 [facility] [id number] [place] [address] Dec, [facility] [address] [place] [address] Dec, Strep throat J02.0 ; Intestinal malabsorption, unspecified K90.9 ; Diarrhea, unspecified R19.7 ; Postoperative seroma involving digestive system after non-digestive system procedure K91.873 ; Hyperlipidemia, mixed E78.2 and BMI 45.0-49.9, adult Z68.42 [facility] [id number] [place] [address] Dec, [facility] [id number] [place] [address] Dec, Nausea R11.0 [facility] [id number] [place] [address] Dec, [facility] [address] [facility] [id number], [place] [address] Dec, Sore throat J02.9 ; Strep throat J02.0 and BMI 45.0-49.9, adult Z68.42 [facility] [address] [facility] [id number] [place] [address] Dec, [facility] [address] [facility] [id number] [place] [address] Dec, [facility] [address] [facility] [id number] [place] [address] Dec, [facility] [address] [facility] [id number] [place] [address] Dec, [facility] [address] [place] [id number] [place] [address] Dec, [facility] [address] [place] [id number] [place] [address] Dec, [facility] [address] [place] [address] [id number] [place] [address] Dec, [facility] [id number] [address] Dec, [facility] [id number], [place] [address] Dec, Clostridium difficile colitis A04.72 ; Intractable vomiting with nausea, unspecified vomiting type R11.2 and BMI 45.0-49.9, adult Z68.42 [facility] [address] [facility] [id number], [place] [address] Dec, [facility] [id number], [place] [address] Nov, [facility] [id number], [place] [address] Nov, [facility] [address] [place] [address] Nov, [place] [id number] [place] [address] Nov, [facility] [place] [id number] [place] [address] Nov, [place] [id number] [place] [address] Nov, Hyperlipidemia, mixed E78.2 [facility] [id number] [place] [address] Nov, Acute suppurative otitis media of right ear without spontaneous rupture of tympanic membrane, recurrence not specified H66.001 and BMI 45.0-49.9, adult Z68.42 [place] [id number] [place] [address] Nov, Hyperlipidemia, mixed E78.2 [place] [id number] [place] [address] Nov, [place] [id number] [place] [address] Nov, [place] [id number] [place] [address] Nov, Nodule of left lung R91.1 [place] [id number] [place] [address] 04 Nov, 2017 Medicare annual wellness visit, initial Z00.00 ; Morbid (severe) obesity due to excess calories E66.01 ; Moderate episode of recurrent major depressive disorder F33.1 ; Chronic post-traumatic stress disorder (PTSD) F43.12 ; Generalized social phobia F40.11 ; Chronic fatigue R53.82 ; Restless leg syndrome G25.81 ; Asthma J45.909 ; Chronic pancreatitis K86.1 ; Hyperlipidemia, mixed E78.2 ; Hirsuties L68.0 ; BMI 45.0-49.9, adult Z68.42 and Encounter for immunization Z23 [place] [id number] [place] [address] October, [place] [id number] [place] [address] October, Nodule of left lung R91.1 [place] [id number] [place] [address] October, Nodule of left lung R91.1 [place] [id number] [place] [address] October, Recurrent major depressive disorder, in partial remission F33.41 ; Restless leg syndrome G25.81 ; Generalized social phobia F40.11 ; Chronic post-traumatic stress disorder (PTSD) F43.12 ; BMI 45.0-49.9, adult Z68.42 and Trichotillomania F63.3 [place] [id number] [place] [address] October, [place] [id number] [place] [address] Sep, Chronic fatigue R53.82 and BMI 45.0-49.9, adult Z68.42 [place] [id number] [place] [address] Aug, [place] [id number] [place] [address] Jul, Restless leg syndrome G25.81 and B12 deficiency E53.8 [place] [id number] [place] [address] Jul, [place] [id number] [place] [address] Jul, [place] [id number] [place] [address] Jun, [place] [id number] [place] [address] Jun, Fatigue, unspecified type R53.83 ; History of renal cell carcinoma Z85.528 ; Chronic pancreatitis K86.1 ; Restless leg syndrome G25.81 ; Dark urine R82.99 and BMI 45.0-49.9, adult Z68.42 [facility] [address], [place] [address] Jun, [place] [id number] [place] [address] Jun, [place] [id number] [place] [address] Jun, [place] [id number] [place] [address] Jun, [place] [id number] [place] [address] May, Chronic post-traumatic stress disorder (PTSD) F43.12 ; Moderate episode of recurrent major depressive disorder F33.1 ; Trichotillomania F63.3 and Generalized social phobia F40.11 [place] [id number] [place] [address] May, [place] [id number] [place] [address] May, Chronic post-traumatic stress disorder (PTSD) F43.12 ; Moderate episode of recurrent major depressive disorder F33.1 ; Trichotillomania F63.3 and Generalized social phobia F40.11 [place] [id number] [place] [address] May, Hyperlipidemia, mixed E78.2 ; Morbid (severe) obesity due to excess calories E66.01 ; Chronic post-traumatic stress disorder (PTSD) F43.12 ; Moderate episode of recurrent major depressive disorder F33.1 ; Trichotillomania F63.3 and Generalized social phobia F40.11 [place] [id number] [place] [address] Apr, [place] [id number] [place] [address] Apr, Hyperlipidemia, mixed E78.2 ; Morbid (severe) obesity due to excess calories E66.01 ; Chronic post-traumatic stress disorder (PTSD) F43.12 ; Moderate episode of recurrent major depressive disorder F33.1 ; Trichotillomania F63.3 and Generalized social phobia F40.11 [place] [address] [address] Apr, Trichotillomania F63.3 ; Generalized social phobia F40.11 ; Chronic post-traumatic stress disorder (PTSD) F43.12 and Moderate episode of recurrent major depressive disorder F33.1 [place] [id number] [place] [address] Apr, [place] [id number] [place] [address] Apr, [place] [address] [address] Mar, Moderate episode of recurrent major depressive disorder F33.1 ; Trichotillomania F63.3 ; Chronic post-traumatic stress disorder (PTSD) F43.12 ; Generalized social phobia F40.11 and Restless leg syndrome G25.81 [place] [id number] [place] [address] Mar, [place] [address] [address] Mar, [place] [id number] [place] [address] Feb, Left kidney mass N28.89 [place] [id number] [place] [address] Jan, [place] [id number] [place] [address] Dec, Polydipsia R63.1 ; Chronic pancreatitis K86.1 and Fatigue, unspecified type R53.83 [facility] [address] [id number] [address] Nov, [facility] [id number] [place] [address] Nov, [facility] [id number] [place] [address] Nov, Headache around the eyes R51 [place] [id number] [place] [address] Nov, [place] [id number] [place] [address] October, STD exposure Z20.2 [place] [id number] [place] [address] October, STD exposure Z20.2 [place] [id number] [place] [address] October, Chronic post-traumatic stress disorder (PTSD) F43.12 ; Generalized social phobia F40.11 ; Trichotillomania F63.3 and Restless leg syndrome G25.81 [place] [id number] [place] [address] October, [place] [id number] [place] [address] Sep, [facility] [id number] [place] [address] Aug, [facility] [id number] [place] [address] Aug, [place] [id number] [place] [address] Aug, Neck mass R22.1 [place] [id number] [place] [address] Aug, Atelectasis J98.11 [place] [id number] [place] [address] 28 Jul, 2016 Hyperlipidemia, mixed E78.2 ; Atypical pneumonia J18.9 and Neck mass R22.[address] [address] 15 Jul, 2016 Hemoptysis R04.[address] [address] 08 Jul, 2016 Acute non-recurrent pansinusitis J01.40 ; Hemoptysis R04.2 ; Polydipsia R63.1 and Malaise R53.81 [facility] [address] [address] May, Other viral agents as the cause of diseases classified elsewhere B97.89 and Acute upper respiratory infection, unspecified J06.9 [facility] [address] [address] Mar, Nausea R11.0 [facility] [address] [address] Dec, Hives L50.[address] [address] Dec, [facility] [place] [id number] [place] [address] Dec, Cutaneous abscess of limb, unspecified L02.419 ; Cellulitis of unspecified part of limb L03.119 ; Encounter for incision and drainage procedure Z01.89 and Encounter for recheck of abscess following incision and drainage Z09 [facility] [address] [address] 09 Dec, 2015 Abscess of leg, right L02.[address] [address] 08 Dec, 2015 Cellulitis of unspecified part of limb L03.119 and Cutaneous abscess of limb, unspecified L02.419 [place] [id number] [address] Dec, [place] [address] [place] [id number] [place] [id number] Dec, [facility] [address] [place] [id number] [place] [id number] Aug, [place] [address] [place] [id number] [place] [address] Aug, [facility] [place] [address] [place] [id number] [place] [address] Jul, Pain in unspecified wrist M25.539 and Back pain, thoracic M54.6 [facility] [place] [address] [place] [id number] [place] [address] Jun, Strain of right wrist, initial encounter S66.911A [place] [address] [place] [id number] [place] [address] Jun, Chronic pancreatitis, unspecified pancreatitis type K86.1 ; Hirsuties L68.0 ; Morbid (severe) obesity due to excess calories E66.01 ; Chronic pancreatitis K86.1 and Asthma J45.909 [place] [address] [place] [id number] [place] [phone] May, [place] [address] [place] [id number] [place] [address] May, Hyperlipidemia, mixed E78.2 and Muscle spasm of back M62.830 [place] [address] [place] [id number] [place] [phone] Apr, [place] [address] [place] [id number] [place] [address] Apr, Torticollis M43.6 [place] [address] [place] [id number] [place] [address] Apr, Right-sided thoracic back pain M54.6 [facility] [address] [place] [id number] [place] [phone] Mar, Rash R21 [facility] [address] [place] [id number] [place] [phone] Mar, [facility] [address] [place] [id number] [place] [id number] Jan, [facility] [facility] [address] [address] Dec, [facility] [id number] [place] [address] Dec, Urinary frequency 788.41 and Nocturia more than twice per night 788.43 [facility] [id number] [place] [address] Nov, [facility] [id number] [place] [address] Nov, [facility] [id number] [place] [address] Nov, Abdominal pain 789.00 [facility] [id number] [place] [address] October, TDAP DX V06.1 [facility] [id number] [place] [address] October, [facility] [id number] [place] [address] October, Disturbance of skin sensation 782.0 ; Wrist pain, right 719.43 ; Hyperlipidemia 272.4 and Skin lesion of face 709.9 [facility] [id number] [place] [address] Sep, [facility] [id number] [place] [address] Sep, [facility] [address] [id number] [place] [address] 26 Aug, 2014 [facility] [place] [facility] [address] [id number] [place] [address] 26 Aug, 2014 [facility] [place] [facility] [address] [id number] [place] [address] 23 Aug, 2014 [facility] [place] [facility] [address] [id number] [place] [address] 23 Aug, 2014 [facility] [place] [facility] [address] [id number] [place] [address] 16 Aug, 2014 [facility] [place] [facility] [address] [id number] [place] [address] 16 Aug, 2014 [facility] [place] [facility] [address] [id number] [place] [address] 14 Aug, 2014 [facility] [place] [facility] [address] [id number] [place] [address] 14 Aug, 2014 [facility] [place] [facility] [address] [id number] [place] [address] Aug, [facility] [place] [facility] [address] [id number] [place] [address] Aug, [facility] [place] [facility] [address] [id number] [place] [address] Aug, [facility] [place] [facility] [address] [id number] [place] [address] Aug, 2014 [facility] [place] [facility] [address] [id number] [place] [address] Aug, [facility] [place] [facility] [address] [id number] [place] [address] Aug, [facility] [place] [facility] [address] [id number] [place] [address] Jul, [facility] [place] [facility] [address] [id number] [place] [address] Jul, [facility] [place] [facility] [address] [id number] [place] [address] Jul, [facility] [place] [facility] [address] [id number] [place] [address] Jul, [facility] [place] [facility] [address] [id number] [place] [address] Jul, [facility] [place] [facility] [address] [id number] [place] [address] Jul, [facility] [place] [facility] [address] [id number] [place] [address] Jun, [facility] [place] [facility] [address] [id number] [place] [address] Jun, [facility] [place] [facility] [address] [id number] [place] [address] Jun, [facility] [place] [facility] [address] [id number] [place] [address] Jun, [facility] [place] [facility] [address] [id number] [place] [address] Jun, [facility] [place] [facility] [address] [id number] [place] [address] Jun, [facility] [place] [facility] [address] [id number] [place] [address] Jun, [facility] [place] [facility] [address] [id number] [place] [address] Jun, [facility] [place] [facility] [address] [id number] [place] [address] May, [facility] [place] [facility] [address] [id number] [place] [address] May, [facility] [place] [facility] [address] [id number] [place] [address] May, [facility] [place] [facility] [address] [id number] [place] [address] 18 May, 2014 [facility] [address] [id number] [place] [address] May, [facility] [place] [facility] [address] [id number] [place] [address] May, [facility] [place] [facility] [address] [id number] [place] [address] May, [facility] [place] [facility] [address] [id number] [place] [address] May, [facility] [place] [facility] [address] [id number] [place] [address] May, [facility] [place] [facility] [address] [id number] [place] [address] May, [facility] [place] [facility] [address] [id number] [place] [address] May, [facility] [place] [facility] [address] [id number] [place] [address] May, [facility] [place] [facility] [address] [id number] [place] [address] Apr, [facility] [place] [facility] [address] [id number] [place] [address] Apr, [facility] [place] [facility] [address] [id number] [place] [address] Apr, [facility] [place] [facility] [address] [id number] [place] [address] Apr, [facility] [place] [facility] [address] [id number] [place] [address] Apr, [facility] [place] [facility] [address] [id number] [place] [address] Apr, [facility] [place] [facility] [address] [id number] [place] [address] Apr, [facility] [place] [facility] [address] [id number] [place] [address] 14 Apr, 2014 [facility] [place] [facility] [address] [id number] [place] [address] Apr, [facility] [place] [facility] [address] [id number] [place] [address] Apr, [facility] [place] [facility] [address] [id number] [place] [address] Apr, [facility] [place] [facility] [address] [id number] [place] [address] Apr, [facility] [place] [facility] [address] [id number] [place] [address] 14 Mar, 2014 [facility] [place] [facility] [address] [id number] [place] [address] Mar, [facility] [place] [facility] [address] [id number] [place] [address] Mar, [facility] [place] [facility] [address] [id number] [place] [address] Mar, [facility] [place] [facility] [address] [id number] [address] 10 Feb, 2014 [facility] [place] [facility] [address] [id number], [place] [address] 10 Feb, 2014 [facility] [place] [facility] [address] [id number] [address] 05 Sep, 2013 [facility] [place] [facility] [address] [id number] [place] [address] 05 Sep, 2013 [facility] [place] [facility] [address] [id number] [place] [address] 05 Sep, 2013 [facility] [place] [facility] [address] [id number], [place] [address] 05 Sep, 2013 [facility] [place] [facility] [address] [id number], [place] [address] Jan, [facility] [place] [facility] [address] [id number] [place] [address] Jan, [facility] [place] [facility] [address] [id number] [place] [address] Jan, [facility] [place] [facility] [address] [id number] [place] [address] Jan, [facility] [place] [facility] [address] [id number] [place] [address] Jan, [facility] [place] [facility] [address] [id number] [place] [address] Jan, [facility] [place] [facility] [address] [id number] [place] [address] Jan, [facility] [place] [facility] [address] [id number] [place] [address] Jan, [facility] [place] [facility] [address] [id number] [place] [address] Jan, [facility] [place] [facility] [address] [id number] [place] [address] Jan, [facility] [place] [facility] [address] [id number] [place] [address] Jan, [facility] [place] [facility] [address] [id number] [place] [address] Jan, [facility] [place] [facility] [address] [id number] [place] [address] Jan, [facility] [place] [facility] [address] [id number] [place] [address] Jan, [facility] [place] [facility] [address] [id number] [place] [address] Dec, [facility] [place] [facility] [address] [id number] [place] [address] Dec, [facility] [place] [facility] [address] [id number] [place] [address] Dec, [facility] [place] [facility] [address] [id number] [place] [address] Dec, [facility] [place] [facility] [address] [id number] [place] [address] Nov, [facility] [place] [facility] [address] [id number] [place] [address] Nov, [facility] [place] [facility] [address] [id number] [place] [address] Nov, [facility] [place] [facility] [address] [id number] [place] [address] Nov, [facility] [place] [facility] [address] [id number] [place] [address] Nov, [facility] [place] [facility] [address] [id number] [place] [address] October, [facility] [place] [facility] [address] [id number] [place] [address] October, [facility] [place] [facility] [address] [id number] [place] [address] October, [facility] [place] [facility] [address] [id number] [place] [address] October, [facility] [place] [facility] [address] [id number] [place] [address] October, [facility] [place] [facility] [address] [id number] [place] [address] October, [facility] [place] [facility] [address] [id number] [place] [address] October, [facility] [place] [facility] [address] [id number] [place] [address] October, [facility] [place] [facility] [address] [id number] [place] [address] October, [facility] [place] [facility] [address] [id number] [place] [address] October, [facility] [place] [facility] [address] [id number] [place] [address] October, [facility] [place] [facility] [address] [id number] [place] [address] October, [facility] [place] [facility] [address] [id number] [place] [address] October, [facility] [place] [facility] [address] [id number] [place] [address] October, [facility] [place] [facility] [address] [id number] [place] [address] Sep, [facility] [place] [facility] [address] [id number] [place] [address] Sep, [facility] [place] [facility] [address] [id number] [place] [address] Sep, [facility] [place] [facility] [address] [id number] [place] [address] Sep, [facility] [place] [facility] [address] [id number] [place] [address] Sep, [facility] [place] [facility] [address] [id number] [place] [address] Sep, [facility] [place] [facility] [address] [id number] [place] [address] Sep, [facility] [place] [facility] [address] [id number] [place] [address] Sep, [facility] [place] [facility] [address] [id number] [place] [address] Sep, [facility] [place] [facility] [address] [id number] [place] [address] Sep, [facility] [place] [facility] [address] [id number] [place] [address] Sep, [facility] [place] [facility] [address] [id number] [place] [address] Sep, [facility] [place] [facility] [address] [id number] [place] [address] Sep, [facility] [place] [facility] [address] [id number] [place] [address] Sep, [facility] [place] [facility] [address] [id number] [place] [address] Sep, [facility] [place] [facility] [address] [id number] [place] [address] Aug, [facility] [place] [facility] [address] [id number] [place] [address] Aug, [facility] [place] [facility] [address] [id number] [place] [address] Aug, [facility] [place] [facility] [address] [id number] [place] [address] Aug, [facility] [place] [facility] [address] [id number] [place] [address] Jul, [facility] [place] [facility] [address] [facility] [id number] [place] [address] Jul, [facility] [place] [facility] [address] [id number] [place] [address] Jul, [facility] [place] [facility] [address] [id number] [place] [address] Jul, [facility] [place] [facility] [address] [id number] [place] [address] Jun, [facility] [place] [facility] [address] [id number] [place] [address] Jun, [facility] [place] [facility] [address] [id number] [place] [address] Jun, [facility] [address] [id number] [place] [address] 15 Jun, 2013 [facility] [place] [facility] [address] [id number] [place] [address] Jun, [facility] [address] [id number] [place] [address] Jun, [facility] [place] [facility] [address] [id number] [place] [address] Jun, [facility] [address] [id number] [place] [address] Jun, [facility] [address] [id number] [place] [address] May, [facility] [address] [id number] [place] [address] 20 May, 2013 [facility] [address] [id number] [place] [address] 18 May, 2013 [facility] [address] [id number] [place] [address] 18 May, 2013 [facility] [address] [id number] [place] [address] 17 May, 2013 [facility] [place] [facility] [address] [id number] [place] [address] 17 May, 2013 [facility] [place] [facility] [address] [id number], [place] [address] 17 May, 2013 [facility] [place] [facility] [address] [id number] [place] [address] 17 May, 2013 [facility] [place] [facility] [address] [id number] [place] [address] 16 May, 2013 [facility] [place] [facility] [address] [id number] [place] [address] 16 May, 2013 [facility] [place] [facility] [address] [id number], [place] [address] 14 May, 2013 [facility] [address] [id number] [place] [address] 14 May, 2013 [facility] [place] [facility] [address] [id number] [place] [address] 13 May, 2013 [facility] [place] [facility] [address] [id number] [place] [address] 13 May, 2013 [facility] [place] [facility] [address] [id number] [place] [address] 12 May, 2013 [facility] [place] [facility] [address] [id number] [place] [address] 12 May, 2013 [facility] [place] [facility] [address] [id number] [place] [address] May, [facility] [place] [facility] [address] [id number] [place] [address] May, [facility] [place] [facility] [address] [id number] [place] [address] Apr, [facility] [place] [facility] [address] [id number] [place] [address] Apr, [facility] [place] [facility] [address] [id number] [place] [address] Apr, [facility] [place] [facility] [address] [id number], [place] [address] Apr, [facility] [place] [facility] [address] [id number] [place] [address] 27 Aug, 2012 [facility] [place] [facility] [address] [id number] [place] [address] 18 Aug, 2012 [facility] [place] [facility] [address] [id number] [place] [address] 06 Aug, 2012 [facility] [place] [facility] [address] [id number] [place] [address] 05 Aug, 2012 [facility] [place] [facility] [address] [id number] [place] [address] Jul, [facility] [address] [id number] [place] [address] Jun, [facility] [address] [id number] [place] [address] Jun, [facility] [address] [id number] [place] [address] Jun, [facility] [address] [id number] [place] [address] Jun, [facility] [address] [id number] [place] [address] May, [facility] [address] [id number] [place] [address] May, [facility] [address] [id number] [place] [address] May, [facility] [address] [id number] [place] [address] May, [facility] [address] [id number] [place] [address] May, [facility] [address] [id number] [place] [address] May, [facility] [address] [id number] [place] [address] May, [facility] [address] [id number] [place] [address] Apr, [facility] [place] [facility] [address] [id number] [place] [address] Apr, [facility] [place] [facility] [address] [id number] [place] [address] Apr, [facility] [address] [id number] [place] [address] Apr, [facility] [place] [facility] [address] [id number] [place] [address] Apr, [facility] [place] [facility] [address] [id number] [place] [address] Apr, [facility] [place] [facility] [address] [id number] [place] [address] Apr, [facility] [place] [facility] [address] [id number] [place] [address] Mar, [facility] [place] [facility] [address] [id number] [place] [address] Mar, [facility] [place] [facility] [address] [id number], [place] [address] Mar, [facility] [place] [facility] [address] [id number] [place] [address] Mar, [facility] [place] [facility] [address] [id number], [place] [address] Mar, [facility] [place] [facility] [address] [id number], [place] [address] Mar, [facility] [place] [facility] [address] [id number], [place] [address] Mar, [facility] [place] [facility] [address] [id number], [place] [address] Mar, [facility] [place] [facility] [address] [id number], [place] [address] Mar, [facility] [place] [facility] [address] [id number], [place] [address] Mar, [facility] [place] [facility] [address] [id number], [place] [address] Mar, [facility] [place] [facility] [address] [id number], [place] [address] Mar, [facility] [place] [facility] [address] [id number] [place] [address] Feb, [facility] [place] [facility] [address] [id number] [place] [address] Jan, [facility] [place] [facility] [address] [id number] [place] [address] Jan, [facility] [place] [facility] [address] [id number] [place] [address] Jan, [facility] [place] [facility] [address] [id number] [place] [address] Jan, [facility] [place] [facility] [address] [id number] [place] [address] Jan, [facility] [place] [facility] [address] [id number] [place] [address] Dec, [facility] [place] [facility] [address] [id number] [place] [address] Dec, [facility] [place] [facility] [address] [id number] [place] [address] Nov, [facility] [place] [facility] [address] [id number] [place] [address] Nov, [facility] [place] [facility] [address] [id number] [place] [address] Nov, [facility] [place] [facility] [address] [id number] [place] [address] October, [facility] [place] [facility] [address] [id number] [place] [address] October, [facility] [place] [facility] [address] [id number] [place] [address] October, [facility] [place] [facility] [address] [id number] [place] [address] October, [facility] [place] [facility] [address] [id number] [place] [address] October, [facility] [place] [facility] [address] [id number] [place] [address] October, [facility] [address] [id number] [place] [address] October, [facility] [address] [id number] [place] [address] Sep, [facility] [place] [facility] [address] [id number] [place] [address] Sep, [facility] [address] [id number] [place] [address] 26 Sep, 2011 [facility] [address] [id number] [place] [address] 25 Sep, 2011 [facility] [address] [id number] [place] [address] 24 Sep, 2011 [facility] [address] [id number] [place] [address] 19 Sep, 2011 [facility] [address] [id number] [place] [address] 17 Sep, 2011 [facility] [address] [id number] [place] [address] 16 Sep, 2011 [facility] [place] [facility] [address] [id number] [place] [address] 16 Sep, 2011 [facility] [place] [place] [facility] [address] [id number] [place] [address] 14 Sep, 2011 [facility] [place] [facility] [address] [id number] [place] [address] 13 Sep, 2011 [facility] [place] [facility] [address] [id number] [place] [address] 10 Sep, 2011 [facility] [place] [facility] [address] [id number] [place] [address] 09 Sep, 2011 [facility] [place] [facility] [address] [id number] [place] [address] 27 Aug, 2011 [facility] [address] [id number] [place] [address] 12 Aug, 2011 [facility] [place] [facility] [address] [id number] [place] [address] 08 Aug, 2011 [facility] [place] [facility] [address] [facility] [id number] [place] [address] 06 Aug, 2011 [facility] [place] [facility] [address] [id number] [place] [address] 28 Jul, 2011 [facility] [place] [facility] [address] [id number] [place] [address] 22 Jul, 2011 [facility] [place] [facility] [address] [id number] [place] [address] 16 Jul, 2011 [facility] [address] [facility] [id number] [place] [address] 15 Jul, 2011 [facility] [place] [facility] [address] [id number] [place] [address] 14 Jul, 2011 [facility] [place] [facility] [address] [facility] [id number] [place] [address] 10 Jul, 2011 [facility] [place] [facility] [address] [facility] [id number] [place] [address] 30 Jun, 2011 [facility] [place] [facility] [address] [id number] [place] [address] Jun, [facility] [place] [facility] [address] [id number] [place] [address] Jun, [facility] [place] [facility] [address] [id number] [place] [address] Jun, [facility] [place] [facility] [address] [facility] [id number] [place] [address] Jun, [facility] [place] [facility] [address] [facility] [id number] [place] [address] May, [facility] [place] [facility] [address] [id number] [place] [address] May, [facility] [place] [facility] [address] [id number] [place] [address] 14 May, 2011 [facility] [place] [facility] [address] [id number] [place] [address] 14 May, 2011 [facility] [place] [facility] [address] [id number] [place] [address] 12 May, 2011 [facility] [place] [facility] [address] [id number] [place] [address] May, [facility] [place] [facility] [address] [id number] [place] [address] 05 May, 2011 [facility] [place] [facility] [address] [id number] [place] [address] 15 Apr, 2011 [facility] [place] [facility] [address] [id number] [place] [address] 15 Apr, 2011 [facility] [place] [facility] [address] [id number] [place] [address] Apr, [facility] [place] [facility] [address] [id number] [place] [address] Apr, [facility] [place] [facility] [address] [id number] [place] [address] Apr, [facility] [place] [facility] [address] [id number] [place] [address] Apr, [facility] [place] [facility] [address] [id number] [place] [address] Mar, [facility] [place] [facility] [address] [id number] [place] [address] Mar, [facility] [place] [facility] [address] [id number] [place] [address] Mar, [facility] [place] [facility] [address] [id number] [place] [address] Mar, [facility] [place] [facility] [address] [id number] [place] [address] Jan, [facility] [place] [facility] [address] [id number] [place] [address] 19 Dec, 2010 [facility] [place] [facility] [address] [id number] [place] [address] 13 Dec, 2010 [facility] [place] [facility] [address] [id number] [place] [address] October, [facility] [place] [facility] [address] [id number] [place] [address] Sep, [facility] [place] [facility] [address] [id number] [place] [address] 14 Sep, 2010 [facility] [place] [facility] [address] [id number] [place] [address] 17 Jul, 2010 [facility] [place] [facility] [address] [id number] [place] [address] 16 Jul, 2010 [facility] [place] [facility] [address] [id number] [place] [address] May, [facility] [place] [facility] [address] [id number] [place] [address] May, [facility] [place] [facility] [address] [id number] [place] [address] May, [facility] [place] [facility] [address] [id number] [place] [address] May, [facility] [place] [facility] [address] [id number] [place] [address] Apr, [facility] [place] [facility] [address] [id number] [place] [address] Apr, [facility] [place] [facility] [address] [id number] [place] [address] Apr, [facility] [place] [facility] [address] [id number] [place] [address] 18 Apr, 2010 [facility] [address] [id number] [place] [address] Apr, [facility] [address] [id number] [place] [address] 21 Mar, 2010 [facility] [address] [id number] [place] [address] 14 Mar, 2010 [facility] [place] [facility] [address] [id number] [place] [address] 13 Mar, 2010 [facility] [address] [id number] [place] [address], [place] [address] 12 Mar, 2010 [facility] [address] [id number] [place] [address] Jan, [facility] [address] [id number] [place] [address] 15 Dec, 2009 [facility] [address] [id number] [place] [address] 10 Sep, 2009 [facility] [address] [id number] [place] [address] 08 May, 2009 [facility] [address] [facility] [id number] [place] [address] 06 May, 2009 [facility] [place] [facility] [address] [id number] [place] [address] May, [facility] [place] [facility] [address] [id number] [place] [address] 17 Apr, 2009 [facility] [place] [facility] [address] [id number] [place] [address] 17 Apr, 2009 [facility] [place] [facility] [address] [id number] [place] [address] 10 Apr, 2009 [facility] [place] [facility] [address] [id number] [place] [address] Apr, [facility] [address] [facility] [id number] [place] [address] Apr, [facility] [address] [facility] [id number], [place] [address] Mar, [facility] [address] [facility] [id number], [place] [address] Mar, [facility] [address] [facility] [id number], [place] [address] Jul, IMMUNIZATIONS No Known Immunizations SOCIAL HISTORY [...] January before. 03/2018 Hospitalization History Cellulitis-[facility]ia [facility] 12/20/15 Hospitalization [facility]- Abd pain 03/07/2017 Hospital[facility] History [facility]- Abd pain 03/14/2017 Hospitalization History [facility]- No bowel movement, rash 04/13/2017 Hospitalization History [facility]- Abd pain r/t kidney surgery on 04/10/17 04/17/2017 Hospitalization History [facility]- Abd pain r/t kidney surgery on 04/10/17 04/18/2017 Hospitalization History [facility]- Lower abd pain 04/30/2017 Hospitalization History [facility]- Cannot urinate 05/30/2017 Hospitalization History [facility]- Pancreatitis Sx 06/29/2017 Hospitalization History [facility]- Stomach pain 07/22/2017 Hospitalization History [facility]- Left side pain 08/12/2017 Hospitalization History [facility]- Incision site infection 08/30/2017 Hospitalization History [facility]- Post Op Seroma/Hematoma Left Abdomen. Discharged 09/04/17- Dr Daniel 09/02/2017 Hospitalization History [facility]- Right shoulder and back pain 10/22/2017 Hospitalization History [facility]- Shoulder/Back pain 11/11/2017 Hospitalization History [facility]- Right shoulder blade pain 12/04/2017 Hospitalization History [facility]- C-Diff 12/13/2017 Hospitalization History C diff et MRSA 12/27/2017
--- NOTE | 2018-11-11 10:45 | ED Abdominal Pain ---
General Chief Complaint: Abdominal/GI Problems Stated Complaint: STOMACH PAIN Nursing Triage Note: PT AMB TO [facility] WITH COMPLAINT OF ABD PAIN, NAUSEA, AND SUGARY TASTE IN MOUTH. PT RECENTLY HAD ABD SX BY DR MURDOCK. PT STATES SHES HAD TASTE IN MOUTH FOR OVER TWO WEEKS AND STATES PCP WILL NOT RETURN PHONE CALL. LAST TOOK PAIN PILL AT 0630. Sepsis Screen: No Definite Risk Source of Information: Patient Exam Limitations: No Limitations History of Present Illness Date Seen by Provider: November 11, 2018 Time Seen by Provider: 10:20 Initial Comments Here with report of left-sided abdominal pain and an abnormal taste in her mouth that she believes tastes like sugar. Has chronic left upper quadrant abdominal pain since surgery. She did take a hydrocodone this morning. She states her biggest concern is because of pancreatitis that she may be diabetic. Denies dysuria or diarrhea. States that she is urinating less currently but drinking a lot of fluids. Timing/Duration: 12-24 Hours Severity/Quality: Moderate, Aching Location: LUQ Radiation: LLQ, Groin Activities at Onset: None Modifying Factors: Improves With Analgesics; Worsens With Movement, Worsens With Urinating Associated Symptoms: Denies Symptoms Allergies and Home Medications Allergies Coded Allergies: fentanyl (Verified Allergy, Unknown, 10/16/18) meperidine (Verified Allergy, Unknown, 10/16/18) penicillin G (Verified Allergy, Unknown, 10/16/18) vancomycin (Unverified Adverse Reaction, Intermediate, severe itching, 10/16/18) Home Medications Cyanocobalamin 1,000 Mcg/Ml Inj, 1,000 MCG IJ MONTHLY, (Reported) Estradiol 1 Mg Tablet, 1 MG PO HS, (Reported) Hydrocodone/Acetaminophen 1 Each Tablet, 1 EA PO Q6HR PRN for PAIN-MODERATE Prescribed by: LINDSEY MARROQUIN on 10/23/18 1307 Metoprolol Succinate 25 Mg Tab.er.24h, 25 MG PO HS, (Reported) Omeprazole 40 Mg Capsule.dr, 40 MG PO DAILY, (Reported) Ondansetron 8 Mg Tab.rapdis, 8 MG PO BID PRN for NAUSEA/VOMITING-1ST LINE, (Reported) Ropinirole HCl 4 Mg Tablet, 4 MG PO HS, (Reported) Sertraline HCl 50 Mg Tablet, 50 MG PO HS, (Reported) Tizanidine HCl 4 Mg Tablet, 4 MG PO TID PRN for MUSCLE SPASMS, (Reported) Patient Home Medication List Home Medication List Reviewed: Yes Review of Systems Review of Systems Constitutional: see HPI; No chills, No fever EENTM: No Symptoms Reported Respiratory: Denies Shortness of Air, Denies Wheezing Cardiovascular: Denies Chest Pain, Denies Edema Gastrointestinal: Abdominal Pain; Denies Diarrhea, Denies Nausea Genitourinary: See HPI Musculoskeletal: see HPI Skin: no symptoms reported Psychiatric/Neurological: See HPI Endocrine: See HPI All Other Systems Reviewed Negative Unless Noted: Yes Past Xbgppwt-Aiqnsw-Bgywfn Hx Past Med/Social Hx: Reviewed Nursing Past Med/Soc Hx Patient Social History Alcohol Use: Denies Use Recreational Drug Use: No Smoking Status: Current Everyday Smoker Type Used: Cigarettes 2nd Hand Smoke Exposure: No Recent Foreign Travel: No Contact w/Someone Who Travel: No Recent Infectious Disease Expo: No Recent Hopitalizations: Yes (10/22/18 ABD SX) Immunizations Up To Date Tetanus Booster (TDap): Unknown PED Vaccines UTD: No Date of Pneumonia Vaccine: May 17, 2012 Date of Influenza Vaccine: Jul 03, 2012 Seasonal Allergies Seasonal Allergies: Yes (MILD) Past Medical History Surgeries: Yes (LEFT NEPHRECTOMY; INCISIONAL HERNIA REPAIR; EGD'S AND COLONOSCOPIES) Abdominal, Adenoidectomy, Appendectomy, Gallbladder, 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, Nephrectomy, Orthopedic, Tonsillectomy Respiratory: Yes Asthma Currently Using CPAP: No Currently Using BIPAP: No Cardiac: Yes Hypertension Neurological: Yes (RESTLESS LEG SYNDROME) Headaches /Migraines 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: No (HX ENDOMETRIOSIS ) 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 Sexually Transmitted Disease: No HIV/AIDS: No Genitourinary: Yes (L KIDNEY REMOVED FOR TUMOR-MALIGNANT;) UTI-Chronic Gastrointestinal: Yes Abdominal Hernia, Liver Disease/Jaundice, Pancreatitis, Polyps Musculoskeletal: Yes (COCCYX-REPAIRED, ) Chronic Back Pain Endocrine: Yes (CHRONIC PANCREATITIS; OBESITY) HEENT: No Loss of Vision: Denies Hearing Impairment: Denies Cancer: Yes Kidney Did You Recieve Any Treatments: Yes What Type of Treatment Did You: Surgical Intervention Psychosocial: Yes Anxiety, Depression Integumentary: Yes Herpes Blood Disorders: No Adverse Reaction/Blood Tranf: No (N/A) Family Medical History Reviewed Nursing Family Hx Cardiovascular disease 19 FATHER Completed stroke 19 FATHER Diabetes mellitus 19 FATHER Hypercholesterolemia 19 FATHER 19 MOTHER Hypertension 19 FATHER 19 MOTHER Neoplasm 19 MOTHER Psychosocial problem 19 FATHER 19 MOTHER No Pertinent Family Hx, Cancer, Diabetes, Hypertension Physical Exam Vital Signs Vital Signs - First Documented 11/11/18 09:33 Temp 97.1 Pulse 73 Resp 18 B/P (MAP) 119/60 (79) Pulse Ox 100 O2 Delivery Room Air Capillary Refill : Less Than 3 Seconds Height/Weight/BMI Height: 5'2.00" Weight: 260lbs. 0.0oz. 117.571825hi; 47.6 BMI Method:Stated General Appearance: WD/WN, no apparent distress HEENT: PERRL/EOMI, pharynx normal Neck: full range of motion, supple Respiratory: lungs clear, normal breath sounds Cardiovascular: regular rate, rhythm, no murmur Gastrointestinal: soft, tenderness (and left upper quadrant) Extremities: non-tender, normal inspection Back: normal inspection, no CVA tenderness, no vertebral tenderness Neurologic/Psychiatric: alert, oriented x 3 Skin: normal color, warm/dry Progress/Results/Core Measures Results/Orders Lab Results Laboratory Tests Test 11/11/18 11:29 11/11/18 11:59 Range/Units White Blood Count 7.4 4.3-11.0 10^3/uL Red Blood Count 4.66 4.35-5.85 10^6/uL Hemoglobin 12.5 11.5-16.0 G/DL Hematocrit 39 35-52 % Mean Corpuscular Volume 84 80-99 FL Mean Corpuscular Hemoglobin 27 25-34 PG Mean Corpuscular Hemoglobin Concent 32 32-36 G/DL Red Cell Distribution Width 13.9 10.0-14.5 % Platelet Count 289 130-400 10^3/uL Mean Platelet Volume 9.8 7.4-10.4 FL Neutrophils (%) (Auto) 55 42-75 % Lymphocytes (%) (Auto) 34 12-44 % Monocytes (%) (Auto) 5 0-12 % Eosinophils (%) (Auto) 5 0-10 % Basophils (%) (Auto) 0 0-10 % Neutrophils # (Auto) 4.1 1.8-7.8 X 10^3 Lymphocytes # (Auto) 2.5 1.0-4.0 X 10^3 Monocytes # (Auto) 0.4 0.0-1.0 X 10^3 Eosinophils # (Auto) 0.4 H 0.0-0.3 10^3/uL Basophils # (Auto) 0.0 0.0-0.1 10^3/uL Sodium Level 140 135-145 MMOL/L Potassium Level 4.0 3.6-5.0 MMOL/L Chloride Level 109 H 98-107 MMOL/L Carbon Dioxide Level 22 21-32 MMOL/L Anion Gap 9 5-14 MMOL/L Blood Urea Nitrogen 15 7-18 MG/DL Creatinine 0.86 0.60-1.30 MG/DL Estimat Glomerular Filtration Rate > 60 BUN/Creatinine Ratio 17 Glucose Level 99 70-105 MG/DL Calcium Level 9.6 8.5-10.1 MG/DL Corrected Calcium 9.4 8.5-10.1 MG/DL Total Bilirubin 0.2 0.1-1.0 MG/DL Aspartate Amino Transf (AST/SGOT) 37 H 5-34 U/L Alanine Aminotransferase (ALT/SGPT) 25 0-55 U/L Alkaline Phosphatase 63 40-136 U/L Total Protein 7.8 6.4-8.2 GM/DL Albumin 4.3 3.2-4.5 GM/DL Amylase Level 51 25-125 U/L Lipase 35 8-78 U/L Urine Color YELLOW Urine Clarity SLIGHTLY CLOUDY Urine pH 5 5-9 Urine Specific [place] 1.025 H 1.016-1.022 Urine Protein 1+ H NEGATIVE Urine Glucose (UA) NEGATIVE NEGATIVE Urine Ketones NEGATIVE NEGATIVE Urine Nitrite NEGATIVE NEGATIVE Urine Bilirubin NEGATIVE NEGATIVE Urine Urobilinogen NORMAL NORMAL MG/DL Urine Leukocyte Esterase 1+ H NEGATIVE Urine RBC (Auto) NEGATIVE NEGATIVE Urine RBC NONE /HPF Urine WBC 5-10 H /HPF Urine Squamous Epithelial Cells 25-50 H /HPF Urine Crystals NONE /LPF Urine Bacteria MODERATE H /HPF Urine Casts NONE /LPF Urine Mucus NEGATIVE /LPF Urine Culture Indicated YES My Orders Orders - YUKI MARCH MD Ed Iv/Invasive Line Start (11/11/18 10:34) Ns Iv 1000 Ml (Sodium Chloride 0.9%) (11/11/18 10:34) Cbc With Automated Diff (11/11/18 10:34) Comprehensive Metabolic Panel (11/11/18 10:34) Ua Culture If Indicated (11/11/18 10:34) Accucheck Stat ONCE (11/11/18 10:34) Amylase (11/11/18 10:59) Lipase (11/11/18 10:59) Urine Culture (11/11/18 11:59) Medications Given in ED Current Medications Medications Dose Ordered Sig/Neal Route Start Time Stop Time Status Last Admin Dose Admin Sodium Chloride 1,000 ml @ 0 mls/hr Q0M ONCE IV 11/11/18 10:34 11/11/18 10:35 DC 11/11/18 11:32 1,000 MLS/HR Vital Signs/I&O 11/11/18 09:33 Temp 97.1 Pulse 73 Resp 18 B/P (MAP) 119/60 (79) Pulse Ox 100 O2 Delivery Room Air Blood Pressure Mean: 79 Progress Progress Note : Progress Note Seen and evaluated. IV, labs, UA, normal saline 1 L bolus ordered. We will check blood sugar. I did discuss the case with Dr. Marroquin and her appointment is actually next Saturday which the patient thought. Dr. Marroquin will actually see today. I'll send copies results over to him. Monitor patient. 1244: Overall much better with fluids. Discharged home with return precautions. Patient verbalize understanding instructions and agreement with plan. To see Dr. Marroquin today and I will send a copy of the chart over to him. She agrees with plan. Departure Impression Primary Impression: Left upper quadrant abdominal pain of unknown etiology Additional Impression: Dehydration Disposition: 01 HOME, SELF-CARE Condition: Improved Departure-Patient Inst. Decision time for Depature: 12:46 Referrals: CARMEN GIBBS MD (PCP/Family) Primary Care Physician Patient Instructions: Acute Abdomen (Belly Pain), Adult (DC), Dehydration, Adult (DC) Add. Discharge Instructions: All discharge instructions reviewed with patient and/or family. Voiced understanding. Follow-up with Dr. Marroquin today. Go over to his office to be seen. Drink plenty of fluids and he should be drinking at least 4-6 of your bottles of water daily. You may intermix Gatorade or Powerade are similar to ensure that your electrolytes are okay. Follow-up with your DrBowen in a few days for recheck. Return for worse pain, fever, vomiting, weakness, breathing problems or other concerns as needed. Copy Copies To 1: LINDSEY MARROQUIN TIMOTHY D MD November 11, 2018 10:45
[2018-11-11 11:34] LABS: BASOPHILS % (AUTO) 0 % (0-10); EOSINOPHILS # (AUTO) 0.4 10^3/uL (0.0-0.3); EOSINOPHILS % (AUTO) 5 % (0-10); HEMATOCRIT 39 % (35-52); HEMOGLOBIN 12.5 G/DL (11.5-16.0); LYMPHOCYTES # (AUTO) 2.5 X 10^3 (1.0-4.0); LYMPHOCYTES % (AUTO) 34 % (12-44); MEAN CORPUSCULAR HEMOGLOBIN 27 PG (25-34); MEAN CORPUSCULAR HGB CONC 32 G/DL (32-36); MEAN CORPUSCULAR VOLUME 84 FL (80-99); MEAN PLATELET VOLUME 9.8 FL (7.4-10.4); MONOCYTES # (AUTO) 0.4 X 10^3 (0.0-1.0); MONOCYTES % (AUTO) 5 % (0-12); NEUTROPHILS # (AUTO) 4.1 X 10^3 (1.8-7.8); NEUTROPHILS % (AUTO) 55 % (42-75); PLATELET COUNT 289 10^3/uL (130-400); RED CELL DISTRIBUTION WIDTH 13.9 % (10.0-14.5); WHITE BLOOD COUNT 7.4 10^3/uL (4.3-11.0)
[2018-11-11 11:56] LABS: ALANINE AMINOTRANSFERASE 25 U/L (0-55); ALBUMIN 4.3 GM/DL (3.2-4.5); ALKALINE PHOSPHATASE 63 U/L (40-136); AMYLASE 51 U/L (25-125); BILIRUBIN,TOTAL 0.2 MG/DL (0.1-1.0); BUN/CREATININE RATIO 17; CALCIUM 9.6 MG/DL (8.5-10.1); CARBON DIOXIDE 22 MMOL/L (21-32); CHLORIDE 109 MMOL/L (98-107); CREATININE SERUM 0.86 MG/DL (0.60-1.30); GFR ESTIMATED > 60; GLUCOSE 99 MG/DL (70-105); LIPASE 35 U/L (8-78); SODIUM 140 MMOL/L (135-145); TOTAL PROTEIN 7.8 GM/DL (6.4-8.2)
[2018-11-11 12:07] LABS: BILIRUBIN,URINE NEGATIVE (NEGATIVE); CLARITY,URINE SLIGHTLY CLOUDY; COLOR,URINE YELLOW; GLUCOSE, URINE (UA) NEGATIVE (NEGATIVE); KETONES,URINE NEGATIVE (NEGATIVE); LEUKOCYTE ESTERASE ,URINE 1+ (NEGATIVE); NITRITE,URINE NEGATIVE (NEGATIVE); PH,URINE 5 (5-9); PROTEIN,URINE 1+ (NEGATIVE); UROBILINOGEN,URINE NORMAL (NORMAL)
[2018-11-11 12:20] LABS: BACTERIA,URINE MODERATE /HPF; SQUAMOUS EPITHELIAL CELL,UR 25-50 /HPF
[2018-11-11 13:03] VITALS: BP 102/83
== END 2018-11-11 13:03 | disposition home or self-care (01) ==
LOC: EDUNIT# 09:19 → ER 09:22
DX: R10.12 Left upper quadrant pain (principal); E86.0 Dehydration; J45.909 Unspecified asthma, uncomplicated; I10 Essential (primary) hypertension; G25.81 Restless legs syndrome; G43.909 Migraine, unspecified, not intractable, without status migrainosus; E66.9 Obesity, unspecified; F41.9 Anxiety disorder, unspecified; F32.9 Major depressive disorder, single episode, unspecified; F17.210 Nicotine dependence, cigarettes, uncomplicated; Z90.5 Acquired absence of kidney; Z87.440 Personal history of urinary (tract) infections; Z85.528 Personal history of other malignant neoplasm of kidney; Z82.49 Family history of ischemic heart disease and other diseases of the circulatory system; Z68.42 Body mass index [BMI] 45.0-49.9, adult; Z86.19 Personal history of other infectious and parasitic diseases; Z86.010 Personal history of colon polyps; Z87.448 Personal history of other diseases of urinary system; Z90.89 Acquired absence of other organs; Z90.49 Acquired absence of other specified parts of digestive tract; Z90.710 Acquired absence of both cervix and uterus; Z87.19 Personal history of other diseases of the digestive system; Z98.890 Other specified postprocedural states; Z88.0 Allergy status to penicillin; Z88.1 Allergy status to other antibiotic agents; Z88.8 Allergy status to other drugs, medicaments and biological substances
CPT/HCPCS: 36415; 80053; 81000; 82150; 83690; 85025; 87088; 96360

== ENCOUNTER 2018-11-15 13:50 | Emergency (ER) | payer MEDICARE, MEDICAID ==
[~2018-11-15] VITALS: Ht 160 cm; Wt 115.2 kg
--- OUTSIDE RECORDS SUMMARY | 2018-11-15 13:56 | XMS REPORT | Clinical Summary ---
Author Author [facility] Organization [facility] Address Unknown Phone Unavailable Care Team Providers Care Room Service Food Service Attendant Name Role Phone Michael Sutton [...] you expected, contact Release of Information in [facility] Information Management department at [phone] for further assistan ce in locating additional records.[facility] Allergies Comments Active Allergy Reactions [...] Overview: Added automatically from request for surgery [id number] Intractable vomiting with nausea 01/14/2018 Overview: Added automatically from request for surgery [id number] Left renal mass 04/10/2017 Renal mass 03/21/2017 Overview: Added automatically from request for surgery [id number] 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 06/24/2013 Overview: S/P [place], BSO 11/27 [...] Taken Vital Sign Reading 08/22/2018 8:50 AM JELLY MAKER Blood Pressure 115/86 08/22/2018 8:54 AM JELLY MAKER Pulse 89 08/22/2018 8:30 AM JELLY MAKER Temperature 36.8 C (98.2 F) 05/19/2018 1:06 PM JELLY MAKER Respiratory Rate 18 08/22/2018 8:53 AM JELLY MAKER Oxygen Saturation 96% - Inhaled Oxygen - Concentration 08/22/2018 7:00 AM JELLY MAKER Weight 122.5 kg (270 lb) 08/22/2018 7:00 AM JELLY MAKER Height 157.5 cm (5' 2") 08/22/2018 7:00 AM JELLY MAKER Body Mass Index 49.38 Plan of Treatment Health Maintenance Due Date Last Done Comments PHYSICAL (COMPREHENSIVE) 1991 EXAM HIV SCREENING 1999 DTAP/TDAP VACCINES (1 - 2002 Tdap) CERVICAL CANCER SCREENING 2014 INFLUENZA VACCINE 03/17/2019 06/03/2018 Procedures Comments Procedure Name Priority Date/Time Associated Diagnosis C DIFFICILE BY PCR Routine 08/26/2018 Diarrhea, unspecified type ESOPHAGOGASTRODUODENOSCOP 08/22/2018 Chronic pancreatitis, Y WITH ENDOSCOPIC 8:00 AM JELLY MAKER unspecified pancreatitis ULTRASOUND EXAMINATION - type (HCC) [...] () ENDOSCOPIC ULTRASOUND 08/22/2018 REPORT 7:47 AM JELLY MAKER from Last 3 Months Results * C DIFFICILE BY PCR (08/26/2018) Narrative Performed At Performing Organization Address City/State/Zipcode Phone Number OTHER OUTSIDE LAB * ENDOSCOPIC ULTRASOUND REPORT (08/22/2018 7:47 AM JELLY MAKER) Provation Patient Name: Regulo WILKS OTHER Report Procedure Date: 08/22/2018 7:47 RESULTS AM CSN: [id number] Date of : 1985 Gender: Female Attending Physician: Hal Sparks MD Procedure: Upper EUS Indications: Epigastric abdominal pain, Family h/o chronic pancreatitis, pancreas divisum Providers: Hal Sparks MD (Doctor), Lorenza Powers RN (Nurse), Ana Fuentes (Size Roller Operator) Referring Physician: Randy Viveros MD Medications: Monitored [...] 55 seconds Procedure Code(s): --- Professional --- 37061, Esophagogastroduodenoscopy, flexible, transoral; with endoscopic ultrasound examination limited to the esophagus, stomach or duodenum, and adjacent structures CPT copyright 2017 [employer]. All rights reserved. The codes documented in this report are preliminary and upon drupal php developer review may be revised to meet current [...] Present B AETNA MEDICAID AETNA xxxxxxxxxxx 2018-P [facility] Advance Directives Patient has advance care planning documents, and code status on file. For more i nformation, please contact: [facility] [address] [place] [address] Date Inactivated Comments Code Status Date Activated 04/11/2017 4:57 PM Full Code 04/10/2017 5:31 PM Provider has discussed Code Status No, discussion not w/Patient or Family? necessary based on Dx
--- OUTSIDE RECORDS SUMMARY | 2018-11-15 13:56 | XMS REPORT | Encounter Summary ---
Author Author [facility] Organization [facility] Address Unknown Phone Unavailable Care Team Providers Care Signal Intelligence Analyst Name Role Phone Michael Sutton MD Unavailable Unavailable Mary Whittington MD PCP Jessica Valera Unavailable Maggie Puente Unavailable Unavailable Mary Telles APRN Unavailable Bam Ritter MD Unavailable Radha Bo LPN Unavailable Unavailable Jose Sanchez MD Unavailable Encounter Details Care Team Description Date Type Department Jessica Valera ARNP 1999 Counts Include 234 Beds At [facility] Orth[facility] Pavilion [address] [place] [address] 10/14/2018 Telephone [facility] [address] [place] [address] Social History Date Tobacco Use [...] is currently admitted to the hospital at [facility] in [place], [place]. States "they saw signs of a [...]
--- OUTSIDE RECORDS SUMMARY | 2018-11-15 13:56 | XMS REPORT | Encounter Summary ---
Author Author [facility] Organization [facility] Address Unknown Phone Unavailable Care Team Providers Care Customer Service Advocate Name Role Phone Michael Sutton MD Unavailable Unavailable Mary Whittington MD PCP Jessica Valera Unavailable Maggie Puente Unavailable Unavailable Mary Telles CAMPUS SECURITY OFFICER Unavailable Bam Ritter MD Unavailable Radha Bo LPN Unavailable Unavailable Jose Sanchez MD Unavailable Reason for Visit * Auth/Cert Referred By Contact Referred To Contact Status Reason Specialty Diagnoses / Procedures Diagnoses Chronic pancreatitis, unspecified pancreatitis type (HCC) Nausea Generalized abdominal pain Chronic pancreatitis, unspecified pancreatitis type (HCC) [K86.1] Nausea [R11.0] Generalized abdominal pain [R10.84] P rocedures MT EGD TRANSORAL BIOPSY SINGLE/MULTIPLE MT EDG US EXAM SURGICAL ALTER STOM DUODENUM/JEJUNUM ESOPHAGOGASTRODUOD ENOSCOPY WITH BIOPSY - FLEXIBLE ESOPHAGOGASTRODUOD ENOSCOPY WITH ENDOSCOPIC ULTRASOUND EXAMINATION - FLEXIBLE Encounter Details Care Team Description Date Type Department Hal Sparks MD [address] Ortho[facility]Med Pavilion [address] [place] [address] Chronic pancreatitis, unspecified pancreatitis type (HCC) 08/22/2018 Hospital [facility] [address] [place] [address] Social History Date Tobacco Use [...] Taken Vital Sign Reading 08/22/2018 8:50 AM DISTRIBUTION ACCOUNTING CLERK Blood Pressure 115/86 08/22/2018 8:54 AM DISTRIBUTION ACCOUNTING CLERK Pulse 89 08/22/2018 8:30 AM DISTRIBUTION ACCOUNTING CLERK Temperature 36.8 C (98.2 F) - Respiratory Rate - 08/22/2018 8:53 AM DISTRIBUTION ACCOUNTING CLERK Oxygen Saturation 96% - Inhaled Oxygen - Concentration 08/22/2018 7:00 AM DISTRIBUTION ACCOUNTING CLERK Weight 122.5 kg (270 lb) 08/22/2018 7:00 AM DISTRIBUTION ACCOUNTING CLERK Height 157.5 cm (5' 2") 08/22/2018 7:00 AM DISTRIBUTION ACCOUNTING CLERK Body Mass Index 49.38 documented in this [...] Mary Lechuga RN - 08/22/2018 8:46 AM DISTRIBUTION ACCOUNTING CLERK EGD/Upper EUS/ERCP/Antegrade Enteroscopy Post Upper Endoscopy Instructions [...] or concerns after your procedure please call [phone] M-F 8am-5:00 pm. After 5:00 pm, holidays or weekends call [phone] a nd ask for the GI Doctor environmental health and safety intern. RIBUTION ACCOUNTING CLERK documented in this encounter Medications at Time [...] Joel Cantu MD - 08/22/2018 8:12 AM DISTRIBUTION ACCOUNTING CLERK Pre Procedure History and Physical/Sedation Plan Name:Janeth [...] NEPHRECTOMY Left 04/10/2017 NEPHRECTOMY LAPAROSCOPY performed by bAel Poe MD at Main OR/Periop UPPER GASTROINTESTINAL [...] Relevant labs reviewed Joel Cantu MD Pager RIBUTION ACCOUNTING CLERK documented in this encounter Plan of Treatment Not on filedocumented as of this encounter Procedures Comments Procedure Name Priority Date/Time Associated Diagnosis ESOPHAGOGASTRODUODENOSCOP 08/22/2018 Chronic pancreatitis, Y WITH ENDOSCOPIC 8:00 AM DISTRIBUTION ACCOUNTING CLERK unspecified pancreatitis ULTRASOUND EXAMINATION - type (HCC) [...] () ENDOSCOPIC ULTRASOUND 08/22/2018 REPORT 7:47 AM DISTRIBUTION ACCOUNTING CLERK documented in this encounter Results * ENDOSCOPIC ULTRASOUND REPORT (08/22/2018 7:47 AM DISTRIBUTION ACCOUNTING CLERK) Provation Patient Name: Regulo WILKS OTHER Report Procedure Date: 08/22/2018 7:47 RESULTS AM CSN: [id number] Date of : 1985 Gender: Female Attending Physician: Hal Sparks MD Procedure: Upper EUS Indications: Epigastric abdominal pain, Family h/o chronic pancreatitis, pancreas divisum Providers: Hal Sparks MD (Doctor), Lorenza Powers RN (Nurse), Ana Fuentes (Software Design Manager) Referring Physician: Randy Viveros MD Medications: Monitored [...] 55 seconds Procedure Code(s): --- Professional --- 07207, Esophagogastroduodenoscopy, flexible, transoral; with endoscopic ultrasound examination limited to the esophagus, stomach or duodenum, and adjacent structures CPT copyright 2017 [employer]. All rights reserved. The codes documented in this report are preliminary and upon medical illustrator review may be revised to meet current [...] Medication Order MAR Action 08/22/2018 7:26 AM DISTRIBUTION ACCOUNTING CLERK 1,000 mL sodium chloride 0.9 % infusion Given - New 1,000 mL, Intravenous, CONTINUOUS, Bag Starting Sat08/22/18 at 0730, Until Sat08/22/18 at 1121, Pre-Op documented in this encounter
--- OUTSIDE RECORDS SUMMARY | 2018-11-15 13:56 | XMS REPORT | Encounter Summary ---
Author Author [facility] Organization [facility] Address Unknown Phone Unavailable Care Team Providers Care Executive Vice President And Chief Operating Officer Name Role Phone Michael Sutton MD Unavailable Unavailable Mary Whittington MD PCP Jessica Valera Unavailable Maggie Puente Unavailable Unavailable Mary Telles APRN Unavailable Bam Ritter MD Unavailable aRdha Bo LPN Unavailable Unavailable Jose Sanchez MD Unavailable Reason for Visit * Reason Comments Medication Refill Encounter Details Care Team Description Date Type Department Jessica Valera ARNP [address] Orth[facility] [address] [place] [address] Chronic nausea; Chronic vomiting 09/09/[address] [facility] [address] [place] [address] Social History Date Tobacco Use [...]
--- OUTSIDE RECORDS SUMMARY | 2018-11-15 13:56 | XMS REPORT | Encounter Summary ---
Author Author [facility] Organization [facility] Address Unknown Phone Unavailable Care Team Providers Care Talent Coordinator Name Role Phone Michael Sutton MD Unavailable Unavailable Mary Whittington MD PCP Jessica Valera Unavailable Maggie Puente Unavailable Unavailable Mary Telles BUFFER NICKEL Unavailable Bam Ritter MD Unavailable Radha Bo LPN Unavailable Unavailable Jose Sanchez MD Unavailable Reason for Visit * Auth/Cert Referred By Contact Referred To Contact Status Reason Specialty Diagnoses / Procedures Diagnoses Chronic pancreatitis, unspecified pancreatitis type (HCC) Nausea Generalized abdominal pain Chronic pancreatitis, unspecified pancreatitis type (HCC) [K86.1] Nausea [R11.0] Generalized abdominal pain [R10.84] P rocedures SC EGD TRANSORAL BIOPSY SINGLE/MULTIPLE SC EDG US EXAM SURGICAL ALTER STOM DUODENUM/JEJUNUM ESOPHAGOGASTRODUOD ENOSCOPY WITH BIOPSY - FLEXIBLE ESOPHAGOGASTRODUOD ENOSCOPY WITH ENDOSCOPIC ULTRASOUND EXAMINATION - FLEXIBLE Encounter Details Care Team Description Date Type Department Hal Sparks MD [address] Ortho[facility] Lvl [address] [place] [address] ESOPHAGOGASTRODUODENOSCOPY WITH ENDOSCOPIC ULTRASOUND EXAMINATION - FLEXIBLE 08/22/2018 Surgery [facility] [address] [place] [address] Social History Date Tobacco Use [...] Taken Vital Sign Reading 08/22/2018 8:50 AM SUPERVISOR HISTOLOGY Blood Pressure 115/86 08/22/2018 8:54 AM SUPERVISOR HISTOLOGY Pulse 89 08/22/2018 8:30 AM SUPERVISOR HISTOLOGY Temperature 36.8 C (98.2 F) - Respiratory Rate - 08/22/2018 8:53 AM SUPERVISOR HISTOLOGY Oxygen Saturation 96% - Inhaled Oxygen - Concentration 08/22/2018 7:00 AM SUPERVISOR HISTOLOGY Weight 122.5 kg (270 lb) 08/22/2018 7:00 AM SUPERVISOR HISTOLOGY Height 157.5 cm (5' 2") 08/22/2018 7:00 AM SUPERVISOR HISTOLOGY Body Mass Index 49.38 documented in this [...] Mary Lechuga RN - 08/22/2018 8:46 AM SUPERVISOR HISTOLOGY EGD/Upper EUS/ERCP/Antegrade Enteroscopy Post Upper Endoscopy Instructions [...] After 5:00 pm, holidays or weekends call [phone] a nd ask for the GI Doctor sap consultant. [facility] documented in this encounter Medications at Time [...] Joel Cantu MD - 08/22/2018 8:12 AM SUPERVISOR HISTOLOGY Pre Procedure History and Physical/Sedation Plan Name:Janeth [...] Relevant labs reviewed Joel Cantu MD Pager [facility] documented in this encounter Plan of Treatment Not on filedocumented as of this encounter Procedures Comments Procedure Name Priority Date/Time Associated Diagnosis ESOPHAGOGASTRODUODENOSCOP 08/22/2018 Chronic pancreatitis, Y WITH ENDOSCOPIC 8:00 AM SUPERVISOR HISTOLOGY unspecified pancreatitis ULTRASOUND EXAMINATION - type (HCC) [...] () ENDOSCOPIC ULTRASOUND 08/22/2018 REPORT 7:47 AM SUPERVISOR HISTOLOGY documented in this encounter Results * ENDOSCOPIC ULTRASOUND REPORT (08/22/2018 7:47 AM SUPERVISOR HISTOLOGY) Provation Patient Name: Regulo WILKS OTHER Report Procedure Date: 08/22/2018 7:47 RESULTS AM CSN: [id number] Date of : 1985 Gender: Female Attending Physician: Hal Sparks MD Procedure: Upper EUS Indications: Epigastric abdominal pain, Family h/o chronic pancreatitis, pancreas divisum Providers: Hal Sparks MD (Doctor), Lorenza Powers RN (Nurse), Ana Fuentes (Outsole Skiver) Referring Physician: Randy Viveros MD Medications: Monitored [...] 55 seconds Procedure Code(s): --- Professional --- 94195, Esophagogastroduodenoscopy, flexible, transoral; with endoscopic ultrasound examination limited to the esophagus, stomach or duodenum, and adjacent structures CPT copyright 2017 [employer]. All rights reserved. The codes documented in this report are preliminary and upon market relationship manager review may be revised to meet current [...] Medication Order MAR Action 08/22/2018 7:26 AM SUPERVISOR HISTOLOGY 1,000 mL sodium chloride 0.9 % infusion Given - New 1,000 mL, Intravenous, CONTINUOUS, Bag Starting Sat08/22/18 at 0730, Until Sat08/22/18 at 1121, Pre-Op documented in this encounter
--- OUTSIDE RECORDS SUMMARY | 2018-11-15 13:56 | XMS REPORT | Encounter Summary ---
Author Author [facility] Organization [facility] Address Unknown Phone Unavailable Care Team Providers Care Marine Erector Name Role Phone Michael Sutton MD Unavailable Unavailable Mary Whittington MD PCP Jessica Valera Unavailable Maggie Puente Unavailable Unavailable Mary Telles APRN Unavailable Bam Ritter MD Unavailable Radha Bo LPN Unavailable Unavailable Jose Sanchez MD Unavailable Reason for Visit * Reason Comments Medication Refill Encounter Details Care Team Description Date Type Department Randy Nunez MD [address] Ortho[facility]Med [place] [address] [place] [address] Medication monitoring encounter 08/18/2018 Refill [facility] [address] [place] [address] Social History Date Tobacco Use [...]
--- OUTSIDE RECORDS SUMMARY | 2018-11-15 13:56 | XMS REPORT | Encounter Summary ---
Author Author [facility] Organization [facility] Address Unknown Phone Unavailable Care Team Providers Care Orthodontic Lab Technician Name Role Phone Michael Sutton MD Unavailable Unavailable Mary Whittington MD PCP Jessica Valera Unavailable Maggie Puente Unavailable Unavailable Mary Telles OTHER SPATIAL SCIENTIST Unavailable Bam Ritter MD Unavailable Radha Bo LPN Unavailable Unavailable Jose Sanchez MD Unavailable Reason for Visit * Auth/Cert Referred By Contact Referred To Contact Status Reason Specialty Diagnoses / Procedures Diagnoses Chronic pancreatitis, unspecified pancreatitis type (HCC) Nausea Generalized abdominal pain Chronic pancreatitis, unspecified pancreatitis type (HCC) [K86.1] Nausea [R11.0] Generalized abdominal pain [R10.84] P rocedures [place] EGD TRANSORAL BIOPSY SINGLE/MULTIPLE GA EDG US EXAM SURGICAL ALTER STOM DUODENUM/JEJUNUM ESOPHAGOGASTRODUOD ENOSCOPY WITH BIOPSY - FLEXIBLE ESOPHAGOGASTRODUOD ENOSCOPY WITH ENDOSCOPIC ULTRASOUND EXAMINATION - FLEXIBLE Encounter Details Care Team Description Date Type Department Ekaterina Chairez CRNA [id number] [place], [place] [id number] 08/22/2018 Anesthesia [facility] [address] [place] [address] Anesthesia Record Responsible Anesthesiologist Anesthesia [...] Janice Dickerson MD - 08/22/2018 8:52 AM GEOLOGICAL TECHNICAL OFFICER Post-Anesthesia Evaluation Name: Janeth Rajput : 1985 [...] Perioperative Event: No Emergency Case Activation: No OGICAL TECHNICAL OFFICER * Anesthesia Preprocedure Evaluation - Nuzhat Rudolph CRNA - 08/22/2018 7:04 AM GEOLOGICAL TECHNICAL OFFICER Anesthesia Pre-Procedure Evaluation Name: Janeth Rajput : [...] Consent: consented Plan discussed with: anesthesiologist and CRIMINAL DEFENSE ATTORNEY. Comments: (Pt reports fentanyl and demerol allergy, says they cause itching and hallucinations. Reports she received benadryl for her last procedure and receive d fentanyl and had no adverse outcomes.) OGICAL TECHNICAL OFFICER documented in this encounter Plan of Treatment Not on filedocumented as of this encounter Visit Diagnoses Not on filedocumented in this encounter Administered Medications Action Date Dose Rate Site Medication Order MAR Action 08/22/2018 8:18 AM GEOLOGICAL TECHNICAL OFFICER 120 mg lidocaine (PF) injection Given INTRA-PROCEDURE MED, Starting Sat08/22/18 at 0818, Until Sat08/22/18 at 0834, Anesthesia Intra-op 08/22/2018 8:18 AM GEOLOGICAL TECHNICAL OFFICER 4 mg ondansetron (ZOFRAN) injection Given INTRA-PROCEDURE MED, Starting Sat08/22/18 at 0818, Until Sat08/22/18 at 0834, Anesthesia Intra-op 08/22/2018 8:24 AM GEOLOGICAL TECHNICAL OFFICER 140 mcg/kg/min 102.9 mL/hr propofol (DIPRIVAN) infusion Dose/Rate 50 mL, Intravenous, INTRA-PROCEDURE Change MED(CONT), Starting Sat08/22/18 at 0819, Until Sat08/22/18 at 0834, Anesthesia Intra-op 130 mcg/kg/min 95.6 mL/hr Dose/Rate Change 08/22/2018 8:22 AM GEOLOGICAL TECHNICAL OFFICER 120 mcg/kg/min 88.2 mL/hr Given - New Bag 08/22/2018 8:19 AM GEOLOGICAL TECHNICAL OFFICER 08/22/2018 8:26 AM GEOLOGICAL TECHNICAL OFFICER 10 mg propofol (DIPRIVAN) injection Given INTRA-PROCEDURE MED, Starting Sat08/22/18 at 0819, Until Sat08/22/18 at 0834, Anesthesia Intra-op 20 mg Given 08/22/2018 8:25 AM GEOLOGICAL TECHNICAL OFFICER 20 mg Given 08/22/2018 8:23 AM GEOLOGICAL TECHNICAL OFFICER documented in this encounter
--- OUTSIDE RECORDS SUMMARY | 2018-11-15 13:56 | XMS REPORT | Encounter Summary ---
Author Author [facility] Organization [facility] Address Unknown Phone Unavailable Care Team Providers Care Reamer Hand Name Role Phone Michael Sutton MD Unavailable Unavailable Mary Whittington MD PCP Jessica Valera Unavailable Maggie Puente Unavailable Unavailable Mary Telles APRN Unavailable Bam Ritter MD Unavailable Radha Bo LPN Unavailable Unavailable Jose Sanchez MD Unavailable Encounter Details Care Team Description Date Type Department Melina Vargas Diarrhea, unspecified type 08/29/2018 Orders Only [facility] [address] [place] [address] Social History Date Tobacco Use [...]
--- OUTSIDE RECORDS SUMMARY | 2018-11-15 13:56 | XMS REPORT | Encounter Summary ---
Author Author [facility] Organization [facility] Address Unknown Phone Unavailable Care Team Providers Care Meat Molder Name Role Phone Michael Sutton MD Unavailable Unavailable Mary Whittington MD PCP Jessica Valera Unavailable Maggie Puente Unavailable Unavailable Mary Telles APRN Unavailable Bam Ritter MD Unavailable Radha Bo LPN Unavailable Unavailable Jose Sanchez MD Unavailable Reason for Visit * Reason Comments Referral Encounter Details Care Team Description Date Type Department Abel Poe MD [address] [place] [address] [phone] Referral 09/25/2018 Telephone [facility] [address] [address] Social History Date Tobacco Use Types Packs/Day [...] name and will let her physician in [place] know. documented in this encounter Plan of Treatment Not on filedocumented as of this encounter Visit Diagnoses Not on filedocumented in this encounter
--- OUTSIDE RECORDS SUMMARY | 2018-11-15 13:57 | XMS REPORT ---
Author Author Migration, Doctor Organization [facility] Address Unknown Phone Unavailable Care Team Providers Care Ortho/Prosthetic Aide Name Role Phone Migration, Doctor Unavailable Unavailable PROBLEMS Type Condition ICD9-CM Code HKP12-SI Code Onset Dates Condition Status SNOMED Code Problem Chronic tension-type headache, intractable G44.221 Active 102086294 Problem FH: polycystic ovary Z84.2 Active 197436540 Problem Chronic pancreatitis K86.1 Active 926637200 Problem Morbid (severe) obesity due to excess calories E66.01 Active 944187952 Problem Polydipsia R63.1 Active 23652033 Problem Asthma J45.909 Active 930317349 Problem Trichotillomania F63.3 Active 90164456 Problem Right carpal tunnel syndrome G56.01 Active 890564015905246 Problem Atelectasis J98.11 Active 24682020 Problem History of renal cell carcinoma Z85.528 Active 333555991 Problem Moderate episode of recurrent major depressive disorder F33.1 Active 272926533 Problem Chronic fatigue R53.82 Active 25384859 Problem Intestinal malabsorption, unspecified K90.9 Active 65864200 Problem Social phobia, generalized F40.11 Active 21742495 Problem Restless leg syndrome G25.81 Active 70448589 Problem Hyperlipidemia, mixed E78.2 Active 025180676 Problem Social phobia, unspecified F40.10 Active 09810576 Problem Chronic post-traumatic stress disorder (PTSD) F43.12 Active 497492909 Problem Nodule of left lung R91.1 Active 143253236 Problem Hirsuties L68.0 Active 225119243 Problem Primary osteoarthritis of right knee M17.11 Active 882111338834738 Problem Obesities, morbid E66.01 Active 957116697 Problem Menopausal symptoms N95.1 Active 67916202 Problem Conflict between patient and family Z63.9 Active 40032465 ALLERGIES No Information ENCOUNTERS Encounter Location Date Diagnosis [facility] [address] [facility] [id number], [place] [address] Dec, [facility] [address] [facility] [id number], [place] [address] Nov, [facility] [address] [facility] [id number], [place] [address] Nov, [facility] [address] [facility] [id number], [place] [address] October, Conflict between patient and family Z63.9 ; Social phobia, generalized F40.11 and Morbid obesity E66.01 [facility] [address] [facility] [id number], [place] [address] October, [facility] [address] [facility] [id number], [place] [address] October, [facility] [address] [facility] [id number], [place] [address] October, [facility] [address], [place] [address] October, [address] [address] October, [facility] [address], [place] [address] October, [address] [address] October, [facility] [address] [id number], [place] [address] October, Morbid obesity E66.01 ; Routine gynecological examination Z01.419 and Menopausal symptoms N95.1 [facility] [address] [facility] [id number], [place] [address] October, [address] [place] [address] Sep, [facility] [address] [facility] [id number], [place] [address] Sep, [facility] [address], [place] [address] Sep, [facility] [address], [place] [address] Sep, [facility] [id number] [place] [address] Sep, Lower extremity edema R60.0 [facility] [id number] [place] [address] Sep, [facility] [id number] [place] [address] Sep, Lower extremity edema R60.0 and Morbid obesity E66.01 [facility] [id number] [place] [address] Sep, [facility] [id number] [place] [address] Sep, [facility] [id number] [place] [address] Aug, [facility] [address], [place] [address] Aug, Obesities, morbid E66.01 and Morbid obesity E66.01 [facility] [address], [place] [address] Aug, [address] [address] Jul, [facility] [address], [place] [address] Jul, [facility] [address], [place] [address] Jul, [facility] [address], [place] [address] Jul, [facility] [address], [place] [address] Jul, Numbness of right hand R20.0 [facility] [address], [place] [address] Jul, Numbness of right hand R20.0 [facility] [id number] [place] [address] Jul, [facility] [id number] [place] [address] Jul, [facility] [id number] [place] [address] Jul, Right-sided thoracic back pain M54.6 [facility] [id number] [place] [address] Jul, [facility] [id number] [place] [address] Jul, [facility] [id number] [place] [address] Jul, [facility] [address] [place] [address] Jul, [facility] [id number] [place] [address] Jun, [facility] [address] [place] [address] Jun, Acute pain of right shoulder M25.511 ; Numbness of right hand R20.0 and Trapezius muscle spasm M62.838 [facility] [address] [place] [address] Jun, [facility] [id number] [place] [address] Jun, [facility] [address] [place] [address] Jun, Cough R05 ; BMI 50.0-59.9, adult Z68.43 and Morbid obesity E66.01 [facility] [address], [place] [address] Jun, [facility] [id number] [place] [address] 14 Jun, 2018 [facility] [address], [place] [address] 13 Jun, 2018 BMI 45.0-49.9, adult Z68.42 and Acute non-recurrent maxillary sinusitis J01.00 [facility] [address], [place] [address] 09 Jun, 2018 Acute sinusitis J01.90 ; Dysuria R30.0 and BMI 45.0-49.9, adult Z68.42 [facility] [address], [place] [address] 07 Jun, 2018 [facility] [id number] [place] [address] Jun, [facility] [id number] [place] [address] May, [facility] [facility] [id number] [place] [address] May, [facility] [id number] [place] [address] May, [facility] [facility] [id number] [place] [address] May, [facility] [id number] [place] [address] May, [facility] [id number] [place] [address] Apr, Generalized social phobia F40.11 ; Trichotillomania F63.3 ; Chronic post-traumatic stress disorder (PTSD) F43.12 and BMI 45.0-49.9, adult Z68.42 [facility] [address] [id number], [place] [address] Apr, [facility] [id number] [place] [address] Apr, Chronic tension-type headache, intractable G44.221 [facility] [id number] [place] [address] 13 Apr, 2018 [facility] [address] [address] Mar, [facility] [id number] [place] [address] Mar, BMI 45.0-49.9, adult Z68.42 and Pimples R23.8 [facility] [id number] [place] [address] Mar, [facility] [id number] [place] [address] Mar, [facility] [id number] [place] [address] Mar, Decreased urination R34 ; Chronic fatigue R53.82 ; Peripheral edema R60.9 ; Diarrhea, unspecified type R19.7 ; Non-intractable vomiting with nausea, unspecified vomiting type R11.2 ; BMI 45.0-49.9, adult Z68.42 and Chronic post-traumatic stress disorder (PTSD) F43.12 [facility] [id number] [place] [address] Mar, Intestinal malabsorption, unspecified K90.9 ; Diarrhea, unspecified R19.7 ; Urinary urgency R39.15 ; Rectal bleeding K62.5 and Decreased urine output R34 [facility] [id number] [place] [address] Mar, Decreased urine output R34 [facility] [id number] [place] [address] Mar, Rectal bleeding K62.5 [facility] [id number] [place] [address] Mar, Rectal bleeding K62.5 [place] [address] [address] Mar, Urinary urgency R39.15 [facility] [id number] [place] [address] Mar, Urinary urgency R39.15 [place] [address] [address] Mar, Primary osteoarthritis of right knee M17.11 and BMI 45.0-49.9, adult Z68.42 [place] [facility] [address] [address] Mar, [facility] [id number] [place] [address] Feb, Left upper arm pain M79.622 [facility] [id number] [place] [address] Feb, [place] [address] [address] Jan, Acute pain of right knee M25.561 ; Right upper quadrant abdominal pain R10.11 and BMI 45.0-49.9, adult Z68.42 [facility] [id number] [place] [address] Jan, [facility] [id number] [place] [address] Jan, [facility] [id number] [place] [address] Dec, [facility] [id number] [place] [address] Dec, Intestinal malabsorption, unspecified K90.9 and Diarrhea, unspecified R19.7 [place] [address] [place] [address] Dec, [facility] [id number] [place] [address] Dec, Strep throat J02.0 ; Intestinal malabsorption, unspecified K90.9 ; Diarrhea, unspecified R19.7 ; Postoperative seroma involving digestive system after non-digestive system procedure K91.873 ; Hyperlipidemia, mixed E78.2 and BMI 45.0-49.9, adult Z68.42 [facility] [id number] [place] [address] Dec, [facility] [id number] [place] [address] Dec, Nausea R11.0 [facility] [id number] [place] [address] Dec, [facility] [id number] [place] [address] Dec, Sore throat J02.9 ; Strep throat J02.0 and BMI 45.0-49.9, adult Z68.42 [facility] [id number] [place] [address] Dec, [facility] [id number] [place] [address] Dec, [facility] [id number] [place] [address] Dec, [facility] [id number] [place] [address] Dec, [facility] [id number] [place] [address] Dec, [facility] [id number] [place] [address] Dec, [facility] [id number] [place] [address] Dec, [facility] [id number] [place] [address] Dec, [facility] [id number] [place] [address] Dec, Clostridium difficile colitis A04.72 ; Intractable vomiting with nausea, unspecified vomiting type R11.2 and BMI 45.0-49.9, adult Z68.42 [facility] [id number] [place] [address] Dec, [facility] [id number] [place] [address] Nov, [facility] [address] [address] Nov, [facility] [id number] [place] [address] Nov, [facility] [id number] [place] [address] Nov, [facility] [id number] [place] [address] Nov, [facility] [id number] [place] [address] Nov, Hyperlipidemia, mixed E78.2 [facility] [id number] [place] [address] Nov, Acute suppurative otitis media of right ear without spontaneous rupture of tympanic membrane, recurrence not specified H66.001 and BMI 45.0-49.9, adult Z68.42 [facility] [id number] [place] [address] Nov, Hyperlipidemia, mixed E78.2 [facility] [id number] [place] [address] Nov, [facility] [id number] [place] [address] Nov, [place] [facility] [address] [place] [address] Nov, Nodule of left lung R91.1 [facility] [id number] [place] [address] Nov, Medicare annual wellness visit, initial Z00.00 [...] adult Z68.42 and Encounter for immunization Z23 [facility] [id number] [place] [address] October, [facility] [id number] [place] [address] October, Nodule of left lung R91.1 [facility] [id number] [place] [address] October, Nodule of left lung R91.1 [facility] [id number] [place] [address] October, Recurrent major depressive disorder, in partial remission F33.41 ; Restless leg syndrome G25.81 ; Generalized social phobia F40.11 ; Chronic post-traumatic stress disorder (PTSD) F43.12 ; BMI 45.0-49.9, adult Z68.42 and Trichotillomania F63.3 [facility] [id number] [place] [address] October, [facility] [id number] [place] [address] Sep, Chronic fatigue R53.82 and BMI 45.0-49.9, adult Z68.42 [facility] [id number] [place] [address] Aug, [place] [address] [address] Jul, Restless leg syndrome G25.81 and B12 deficiency E53.8 [place] [address] [address] Jul, [place] [address] [address] Jul, [place] [address] [address] Jun, [facility] [facility] [address] [address] Jun, Fatigue, unspecified type R53.83 ; History of renal cell carcinoma Z85.528 ; Chronic pancreatitis K86.1 ; Restless leg syndrome G25.81 ; Dark urine R82.99 and BMI 45.0-49.9, adult Z68.42 [place] [address] [address] Jun, [facility] [facility] [id number] [place] [address] Jun, [facility] [id number] [place] [address] Jun, [facility] [id number] [place] [address] Jun, [facility] [id number] [place] [address] May, Chronic post-traumatic stress disorder (PTSD) F43.12 ; Moderate episode of recurrent major depressive disorder F33.1 ; Trichotillomania F63.3 and Generalized social phobia F40.11 [place] [address] [address] May, [facility] [facility] [address], [place] [address] May, Chronic post-traumatic stress disorder (PTSD) F43.12 ; Moderate episode of recurrent major depressive disorder F33.1 ; Trichotillomania F63.3 and Generalized social phobia F40.11 [facility] [id number] [place] [address] May, Hyperlipidemia, mixed E78.2 ; Morbid (severe) obesity due to excess calories E66.01 ; Chronic post-traumatic stress disorder (PTSD) F43.12 ; Moderate episode of recurrent major depressive disorder F33.1 ; Trichotillomania F63.3 and Generalized social phobia F40.11 [place] [address] [place] [address] Apr, [facility] [id number] [place] [address] Apr, Hyperlipidemia, mixed E78.2 ; Morbid (severe) obesity due to excess calories E66.01 ; Chronic post-traumatic stress disorder (PTSD) F43.12 ; Moderate episode of recurrent major depressive disorder F33.1 ; Trichotillomania F63.3 and Generalized social phobia F40.11 [place] [address], [place] [address] Apr, Trichotillomania F63.3 ; Generalized social phobia F40.11 ; Chronic post-traumatic stress disorder (PTSD) F43.12 and Moderate episode of recurrent major depressive disorder F33.1 [facility] [address], [place] [address] Apr, [facility] [id number] [place] [address] 06 Apr, 2017 [place] [address] [place] [address] Mar, Moderate episode of recurrent major depressive disorder F33.1 ; Trichotillomania F63.3 ; Chronic post-traumatic stress disorder (PTSD) F43.12 ; Generalized social phobia F40.11 and Restless leg syndrome G25.81 [facility] [id number] [place] [address] Mar, [place] [address] [address] Mar, [place] [facility] [address] [address] Feb, Left kidney mass N28.89 [facility] [facility] [address] [address] Jan, [place] [facility] [address] [address] Dec, Polydipsia R63.1 ; Chronic pancreatitis K86.1 and Fatigue, unspecified type R53.83 [facility] [id number] [place] [address] Nov, [facility] [id number] [place] [address] Nov, [facility] [id number] [place] [address] Nov, Headache around the eyes R51 [facility] [id number] [place] [address] Nov, [facility] [id number] [place] [address] October, STD exposure Z20.2 [facility] [id number] [place] [address] October, STD exposure Z20.2 [facility] [id number] [place] [address] October, Chronic post-traumatic stress disorder (PTSD) F43.12 ; Generalized social phobia F40.11 ; Trichotillomania F63.3 and Restless leg syndrome G25.81 [facility] [id number] [place] [address] October, [facility] [id number] [place] [address] Sep, [facility] [id number] [place] [address] Aug, [facility] [facility] [address] [address] Aug, [facility] [id number] [place] [address] Aug, Neck mass R22.1 [facility] [id number] [place] [address] Aug, Atelectasis J98.11 [facility] [address] [address] 28 Jul, 2016 Hyperlipidemia, mixed E78.2 ; Atypical pneumonia J18.9 and Neck mass R22.1 [facility] [id number] [place] [address] 15 Jul, 2016 Hemoptysis R04.2 [facility] [id number] [place] [address] 08 Jul, 2016 Acute non-recurrent pansinusitis J01.40 ; Hemoptysis R04.2 ; Polydipsia R63.1 and Malaise R53.81 [facility] [address] [place] [address] [id number] [place] [address] May, Other viral agents as the cause of diseases classified elsewhere B97.89 and Acute upper respiratory infection, unspecified J06.9 [facility] [address] [place] [id number] [place] [address] Mar, Nausea R11.0 [facility] [address] [place] [phone] Dec, Hives L50.9 [place] [address] [address] 14 Dec, 2015 [facility] [place] [address] [place] [id number] [place] [address] Dec, Cutaneous abscess of limb, unspecified L02.419 ; Cellulitis of unspecified part of limb L03.119 ; Encounter for incision and drainage procedure Z01.89 and Encounter for recheck of abscess following incision and drainage Z09 [facility] [place] [id number] [place] [address] 09 Dec, 2015 Abscess of leg, right L02.415 [place] [address] [place] [id number] [place] [address] 08 Dec, 2015 Cellulitis of unspecified part of limb L03.119 and Cutaneous abscess of limb, unspecified L02.419 [place] [address] [place] [id number] [place] [address] Dec, [place] [address] [place] [id number] [place] [address] Dec, [facility] [place] [address] [place] [address] [id number] [place] [id number] Aug, [place] [id number] [place] [address] Aug, [facility] [place] [address] [place] [id number] [place] [phone] 04 Jul, 2015 Pain in unspecified wrist M25.539 and Back pain, thoracic M54.6 [facility] [place] [address] [place] [id number] [place] [address] Jun, Strain of right wrist, initial encounter S66.911A [place] [address] [place] [id number] [place] [address] Jun, Chronic pancreatitis, unspecified pancreatitis type K86.1 ; Hirsuties L68.0 ; Morbid (severe) obesity due to excess calories E66.01 ; Chronic pancreatitis K86.1 and Asthma J45.909 [facility] [address] [address] May, [facility] [address] [address] May, Hyperlipidemia, mixed E78.2 and Muscle spasm of back M62.830 [facility] [address] [address] Apr, [facility] [address] [address] Apr, Torticollis M43.6 [place] [address] [address] Apr, Right-sided thoracic back pain M54.6 [facility] [address] [address] Mar, Rash R21 [facility] [address] [address] Mar, [facility] [address] [address] Jan, [facility] [address] [address] Dec, [facility] [address] [address] Dec, Urinary frequency 788.41 and Nocturia more than twice per night 788.43 [facility] [address] [address] Nov, [facility] [address] [address] Nov, [facility] [address] [address] Nov, Abdominal pain 789.00 [facility] [address], [place] [address] October, TDAP DX V06.1 [facility] [address] [place] [address] October, [facility] [address] [id number], [place] [address] October, Disturbance of skin sensation 782.0 ; Wrist pain, right 719.43 ; Hyperlipidemia 272.4 and Skin lesion of face 709.9 [facility] [id number] [place] [address] Sep, [facility] [id number] [place] [address] Sep, [facility] [id number] [place] [address] Aug, [facility] [address], [place] [address] Aug, [facility] [id number] [address] Aug, [facility] [address], [place] [address] Aug, [facility] [address] [place] [address] 16 Aug, 2014 [facility] [address] [place] [address] 16 Aug, 2014 [facility] [address], [place] [address] 14 Aug, 2014 [facility] [address] [address] 14 Aug, 2014 [facility] [address], [place] [address] 11 Aug, 2014 [facility] [place] [facility] [address] [id number] [place] [address] Aug, [facility] [place] [facility] [address] [id number] [place] [address] Aug, [facility] [place] [facility] [address] [id number] [place] [address] Aug, [facility] [place] [facility] [address] [id number] [place] [address] Aug, [facility] [place] [facility] [address] [id number] [place] [address] Aug, [facility] [place] [facility] [address] [id number] [place] [address] Jul, [facility] [place] [facility] [address] [facility] [id number] [place] [address] Jul, [facility] [place] [facility] [address] [id number] [place] [address] Jul, [facility] [place] [facility] [address] [id number] [place] [address] Jul, [facility] [place] [facility] [address] [facility] [id number] [place] [address] Jul, [facility] [place] [facility] [address] [facility] [id number] [place] [address] Jul, [facility] [place] [facility] [address] [id number], [place] [address] Jun, [facility] [place] [facility] [address] [id number] [place] [address] Jun, [facility] [place] [facility] [address] [id number] [place] [address] Jun, [facility] [place] [facility] [address] [facility] [id number] [place] [address] Jun, [facility] [place] [facility] [address] [id number], [place] [address] 19 Jun, 2014 [facility] [address] [id number] [place] [address] 19 Jun, 2014 [facility] [place] [facility] [address] [id number] [place] [address] 15 Jun, 2014 [facility] [place] [facility] [address] [facility] [id number] [place] [address] 15 Jun, 2014 [facility] [place] [facility] [address] [id number] [place] [address] May, [facility] [place] [facility] [address] [id number] [place] [address] May, [facility] [place] [facility] [address] [id number] [place] [address] May, [facility] [address] [facility] [id number] [place] [address] May, [facility] [place] [facility] [address] [id number] [place] [address] May, [facility] [place] [facility] [address] [id number] [place] [address] May, [facility] [place] [facility] [address] [facility] [id number] [place] [address] May, [facility] [place] [facility] [address] [id number] [place] [address] May, [facility] [place] [facility] [address] [id number], [place] [address] May, [facility] [place] [facility] [address] [id number] [place] [address] May, [facility] [place] [facility] [address] [facility] [id number] [place] [address] May, [facility] [place] [facility] [address] [facility] [id number] [place] [address] May, [facility] [place] [facility] [address] [id number] [place] [address] Apr, [facility] [place] [facility] [address] [id number] [place] [address] Apr, [facility] [place] [facility] [address] [id number] [place] [address] Apr, [facility] [place] [facility] [address] [id number] [place] [address] Apr, [facility] [place] [facility] [address] [id number] [place] [address] Apr, [facility] [place] [facility] [address] [id number] [place] [address] Apr, [facility] [place] [facility] [address] [id number] [place] [address] Apr, [facility] [place] [facility] [address] [id number] [place] [address] Apr, [facility] [place] [facility] [address] [id number] [place] [address] Apr, [facility] [place] [facility] [address] [id number] [place] [address] Apr, [facility] [place] [facility] [address] [id number] [place] [address] Apr, [facility] [place] [facility] [address] [id number] [place] [address] Apr, [facility] [place] [facility] [address] [id number] [place] [address] Mar, [facility] [place] [facility] [address] [id number] [place] [address] Mar, [facility] [place] [facility] [address] [id number] [place] [address] Mar, [facility] [place] [facility] [address] [id number] [place] [address] Mar, [facility] [place] [facility] [address] [id number] [place] [address] Feb, [facility] [place] [facility] [address] [id number] [place] [address] Feb, [facility] [place] [facility] [address] [id number] [place] [address] Feb, 2013 [facility] [place] [facility] [address] [id number] [place] [address] Feb, 2013 [facility] [place] [facility] [address] [id number] [place] [address] Feb, [facility] [place] [facility] [address] [id number] [place] [address] Feb, [facility] [place] [facility] [address] [id number] [place] [address] Jan, [facility] [place] [facility] [address] [id number] [place] [address] Jan, [facility] [place] [facility] [address] [id number] [place] [address] Jan, [facility] [place] [facility] [address] [id number] [place] [address] Jan, [facility] [place] [facility] [address] [id number], [place] [address] Jan, [facility] [place] [facility] [address] [id number], [place] [address] Jan, [facility] [place] [facility] [address] [id number] [place] [address] Jan, [facility] [place] [facility] [address] [id number] [place] [address] Jan, [facility] [place] [facility] [address] [id number] [place] [address] Jan, [facility] [place] [facility] [address] [id number] [place] [address] Jan, [facility] [place] [facility] [address] [id number] [place] [address] Jan, [facility] [place] [facility] [address] [id number] [place] [address] Jan, [facility] [place] [facility] [address] [id number] [place] [address] Jan, [facility] [place] [facility] [address] [id number] [place] [address] Jan, [facility] [place] [facility] [address] [id number] [place] [address] Dec, [facility] [place] [facility] [address] [id number] [place] [address] Dec, [facility] [place] [facility] [address] [id number] [place] [address] Dec, [facility] [place] [facility] [address] [id number] [place] [address] Dec, [facility] [place] [facility] [address] [id number] [place] [address] Nov, [facility] [place] [facility] [address] [id number] [place] [address] Nov, [facility] [place] [facility] [address] [id number] [place] [address] Nov, [facility] [place] [facility] [address] [id number] [place] [address] Nov, [facility] [place] [facility] [address] [id number] [place] [address] Nov, [facility] [place] [facility] [address] [id number] [place] [address] October, [facility] [place] [facility] [address] [id number] [place] [address] October, [facility] [place] [facility] [address] [id number] [place] [address] October, [facility] [address] [id number] [place] [address] October, [facility] [address] [id number] [place] [address] October, [facility] [address] [id number] [place] [address] October, [facility] [address] [id number] [place] [address] October, [facility] [place] [facility] [address] [id number] [place] [address] October, [facility] [address] [id number] [place] [address] October, [facility] [address] [id number] [place] [address] October, [facility] [address] [id number] [place] [address] October, [facility] [place] [facility] [address] [id number] [place] [address] October, [facility] [place] [facility] [address] [id number] [place] [address] October, [facility] [place] [facility] [address] [id number] [place] [address] October, [facility] [place] [facility] [address] [id number] [place] [address] Sep, [facility] [place] [facility] [address] [id number] [place] [address] Sep, [facility] [place] [facility] [address] [id number] [place] [address] Sep, [facility] [place] [facility] [address] [id number] [place] [address] 14 Sep, 2013 [facility] [place] [facility] [address] [id number] [place] [address] Sep, [facility] [place] [facility] [address] [id number] [place] [address] Sep, [facility] [place] [facility] [address] [id number] [place] [address] Sep, [facility] [place] [facility] [address] [id number] [place] [address] Sep, [facility] [place] [facility] [address] [id number] [place] [address] Sep, [facility] [place] [facility] [address] [id number] [place] [address] Sep, [facility] [place] [facility] [address] [id number] [place] [address] Sep, [facility] [place] [facility] [address] [id number] [place] [address] Sep, [facility] [place] [facility] [address] [id number] [place] [address] Sep, [facility] [place] [facility] [address] [id number] [place] [address] Sep, [facility] [place] [facility] [address] [id number] [place] [address] Sep, [facility] [place] [facility] [address] [id number] [place] [address] Aug, [facility] [place] [facility] [address] [id number] [place] [address] Aug, [facility] [place] [facility] [address] [id number] [place] [address] Aug, [facility] [place] [facility] [address] [id number] [place] [address] Aug, [facility] [place] [facility] [address] [id number] [place] [address] 10 Jul, 2013 [facility] [place] [facility] [address] [id number] [place] [address] 06 Jul, 2013 [facility] [place] [facility] [address] [id number] [place] [address] 06 Jul, 2013 [facility] [place] [facility] [address] [id number] [place] [address] 03 Jul, 2013 [facility] [place] [facility] [address] [id number] [place] [address] 15 Jun, 2013 [facility] [place] [facility] [address] [id number] [place] [address] Jun, [facility] [place] [facility] [address] [id number] [place] [address] Jun, [facility] [place] [facility] [address] [id number] [place] [address] Jun, [facility] [place] [facility] [address] [id number] [place] [address] Jun, [facility] [place] [facility] [address] [id number] [place] [address] Jun, [facility] [place] [facility] [address] [id number] [place] [address] Jun, [facility] [place] [facility] [address] [id number] [place] [address] Jun, [facility] [place] [facility] [address] [id number] [place] [address] May, [facility] [place] [facility] [address] [id number] [place] [address] May, [facility] [place] [facility] [address] [id number] [place] [address] May, [facility] [place] [facility] [address] [id number] [place] [address] 18 May, 2013 [facility] [address] [id number] [place] [address] 17 May, 2013 [facility] [address] [id number] [place] [id number] 17 May, 2013 [facility] [address] [id number] [place] [address] 17 May, 2013 [facility] [address] [id number] [place] [address] 17 May, 2013 [facility] [address] [id number] [place] [address] 16 May, 2013 [facility] [address] [id number] [place] [address] 16 May, 2013 [facility] [address] [id number] [place] [address] 14 May, 2013 [facility] [address] [id number] [place] [address] 14 May, 2013 [facility] [address] [id number] [place] [address] 13 May, 2013 [facility] [address] [id number] [place] [address] 13 May, 2013 [facility] [address] [id number] [place] [address] 12 May, 2013 [facility] [address] [id number], [place] [address] 12 May, 2013 [facility] [address] [id number] [place] [address] 11 May, 2013 [facility] [address] [id number] [place] [address] 11 May, 2013 [facility] [place] [facility] [address] [id number] [place] [address] 26 Apr, 2013 [facility] [address] [id number] [place] [address] Apr, [facility] [address] [id number] [place] [address] Apr, [facility] [address] [id number] [place] [address] Apr, [facility] [address] [id number] [place] [address] Aug, [facility] [place] [facility] [address] [id number] [place] [address] Aug, [facility] [address] [id number] [place] [address] Aug, [facility] [address] [id number] [place] [address] Aug, [facility] [address] [id number] [place] [address] Jul, [facility] [address] [id number] [place] [address] Jun, [facility] [address] [id number] [place] [address] Jun, [facility] [address] [id number] [place] [address] Jun, [facility] [address] [id number] [place] [address] Jun, [facility] [address] [id number] [place] [address] May, [facility] [place] [facility] [address] [id number] [place] [address] May, [facility] [place] [facility] [address] [id number] [place] [address] May, [facility] [address] [id number] [place] [address] May, [facility] [place] [facility] [address] [id number] [place] [address] May, [facility] [place] [facility] [address] [id number] [place] [address] May, [facility] [place] [facility] [address] [id number] [place] [address] May, [facility] [place] [facility] [address] [id number] [place] [address] Apr, [facility] [place] [facility] [address] [id number] [place] [address] Apr, [facility] [place] [facility] [address] [id number] [place] [address] Apr, [facility] [place] [facility] [address] [id number] [place] [address] Apr, [facility] [place] [facility] [address] [id number] [place] [address] Apr, [facility] [place] [facility] [address] [id number] [place] [address] Apr, [facility] [place] [facility] [address] [id number] [place] [address] Apr, [facility] [place] [facility] [address] [id number] [place] [address] Mar, [facility] [place] [facility] [address] [id number], [place] [address] Mar, [facility] [place] [facility] [address] [id number] [place] [address] Mar, [facility] [place] [facility] [address] [id number] [place] [address] Mar, [facility] [place] [facility] [address] [id number] [place] [address] Mar, [facility] [place] [facility] [address] [id number], [place] [address] Mar, [facility] [place] [facility] [address] [id number] [place] [address] Mar, [facility] [place] [facility] [address] [id number] [place] [address] Mar, [facility] [place] [facility] [address] [id number] [place] [address] Mar, [facility] [place] [facility] [address] [id number] [place] [address] Mar, [facility] [place] [facility] [address] [id number] [place] [address] Mar, [facility] [place] [facility] [address] [id number] [place] [address] Mar, [facility] [place] [facility] [address] [id number] [place] [address] Feb, [facility] [place] [facility] [address] [id number] [place] [address] Jan, [facility] [place] [facility] [address] [id number] [place] [address] Jan, [facility] [place] [facility] [address] [id number] [place] [address] Jan, [facility] [place] [facility] [address] [id number], [place] [address] Jan, [facility] [place] [facility] [address] [id number], [place] [address] Jan, [facility] [place] [facility] [address] [id number] [place] [address] Dec, [facility] [place] [facility] [address] [id number] [place] [address] Dec, [facility] [place] [facility] [address] [id number] [place] [address] Nov, [facility] [place] [facility] [address] [id number] [place] [address] Nov, [facility] [address] [id number] [place] [address] Nov, [facility] [address] [id number] [place] [address] October, [facility] [address] [id number] [place] [address] October, [facility] [address] [id number] [place] [address] October, [facility] [address] [id number] [place] [address] October, [facility] [address] [id number] [place] [address] October, [facility] [address] [id number] [place] [address] October, [facility] [address] [id number] [place] [address] October, [facility] [address] [id number] [place] [address] Sep, [facility] [address] [id number] [place] [address] Sep, [facility] [address] [id number] [place] [address] Sep, [facility] [address] [id number] [place] [address] Sep, [facility] [address] [id number] [place] [address] 24 Sep, 2011 [facility] [address] [id number] [place] [address] Sep, [facility] [address] [id number] [place] [address] 17 Sep, 2011 [facility] [address] [id number] [place] [address] 16 Sep, 2011 [facility] [place] [facility] [address] [id number] [place] [address] 16 Sep, 2011 [facility] [place] [facility] [address] [id number] [place] [address] 14 Sep, 2011 [facility] [place] [facility] [address] [id number] [place] [address] 13 Sep, 2011 [facility] [place] [facility] [address] [id number] [place] [address] 10 Sep, 2011 [facility] [place] [facility] [address] [id number] [place] [address] 09 Sep, 2011 [facility] [place] [facility] [address] [id number] [place] [address] 27 Aug, 2011 [facility] [place] [facility] [address] [id number] [place] [address] 12 Aug, 2011 [facility] [place] [facility] [address] [id number] [place] [address] 08 Aug, 2011 [facility] [place] [address] [id number] [place] [address] 06 Aug, 2011 [facility] [place] [facility] [address] [id number] [place] [address] 28 Jul, 2011 [facility] [place] [facility] [address] [id number] [place] [address] 22 Jul, 2011 [facility] [place] [facility] [address] [id number] [place] [address] 16 Jul, 2011 [facility] [place] [facility] [address] [id number] [place] [address] 15 Jul, 2011 [facility] [place] [facility] [address] [id number] [place] [address] 14 Jul, 2011 [facility] [address] [id number] [place] [address] 10 Jul, 2011 [facility] [address] [id number] [place] [address] Jun, [facility] [place] [facility] [address] [id number] [place] [address] Jun, [facility] [address] [id number] [place] [address] Jun, [facility] [address] [id number] [place] [address] Jun, [facility] [address] [id number] [place] [address] Jun, [facility] [address] [id number] [place] [address] May, [facility] [address] [id number] [place] [address] May, [facility] [address] [id number] [place] [address] May, [facility] [address] [id number] [place] [address] May, [facility] [address] [id number] [place] [address] May, [facility] [address] [id number] [place] [address] 07 May, 2011 [facility] [facility] [address] [id number] [place] [address] 05 May, 2011 [facility] [facility] [address] [id number] [place] [address] 15 Apr, 2011 [facility] [address] [id number] [place] [address] 15 Apr, 2011 [facility] [address] [id number] [place] [address] Apr, [facility] [address] [id number] [place] [address] Apr, [facility] [address] [id number] [place] [address] Apr, [facility] [address] [id number] [place] [address] Apr, [facility] [address] [id number] [place] [address] Mar, [facility] [facility] [address] [id number] [place] [address] Mar, [facility] [facility] [address] [id number] [place] [address] Mar, [facility] [address] [id number] [place] [address] Mar, [facility] [facility] [address] [id number] [place] [address] Jan, [facility] [facility] [address] [id number] [place] [address] Dec, [facility] [address] [id number] [place] [address] Dec, [facility] [place] [facility] [address] [id number] [place] [address] October, [facility] [address] [id number], [place] [address] Sep, [facility] [address] [id number] [place] [address] 14 Sep, 2010 [facility] [address] [id number] [place] [address] Jul, [facility] [address] [id number] [place] [address] 16 Jul, 2010 [facility] [address] [id number], [place] [address] 31 May, 2010 [facility] [address] [id number] [place] [address] 27 May, 2010 [facility] [place] [facility] [address] [id number] [place] [address] 08 May, 2010 [facility] [address] [facility] [id number] [place] [address] 06 May, 2010 [facility] [place] [facility] [address] [id number] [place] [address] Apr, [facility] [place] [facility] [address] [id number] [place] [address] Apr, [facility] [place] [facility] [address] [id number] [place] [address] Apr, [facility] [place] [facility] [address] [facility] [id number] [place] [address] Apr, [facility] [place] [facility] [address] [facility] [id number] [place] [address] Apr, [facility] [place] [facility] [address] [facility] [id number] [place] [address] 21 Mar, 2010 [facility] [place] [facility] [address] [facility] [id number] [place] [address] 14 Mar, 2010 [facility] [place] [facility] [address] [facility] [id number], [place] [address] 13 Mar, 2010 [facility] [place] [facility] [address] [facility] [id number], [place] [address] 12 Mar, 2010 [facility] [place] [facility] [address] [id number] [place] [address] 20 Jan, 2010 [facility] [place] [facility] [address] [facility] [id number] [place] [address] 15 Dec, 2009 [facility] [place] [facility] [address] [facility] [id number] [place] [address] 10 Sep, 2009 [facility] [place] [facility] [id number], [place] [address] May, [facility] [id number] [place] [address] May, [facility] [id number] [place] [address] May, [facility] [id number] [place] [address] Apr, [facility] [id number] [place] [address] Apr, [facility] [id number] [place] [address] Apr, [facility] [id number] [place] [address] Apr, [facility] [id number] [place] [address] Apr, [facility] [id number] [place] [address] Mar, [facility] [id number] [place] [address] Mar, [facility] [id number] [place] [address] Jul, IMMUNIZATIONS No Known Immunizations SOCIAL HISTORY Never Assessed REASON FOR VISIT [facility] PLAN OF CARE VITAL [...] removed from surgery the January before. 03/2018 Surgical History mesh removed and replaced [facility] 10/2018 Hospitalization History Cellulitis[facility] 12/20/15 [facility] Abd pain 03/07/2017 [facility] Abd pain 03/14/2017 [facility]- No bowel movement, rash 04/13/2017 Hospitalization History [facility]- Abd pain r/t kidney surgery on 04/10/17 04/17/2017 Hospitalization History [facility]- Abd pain r/t kidney surgery on 04/10/17 04/18/2017 [facility]- Lower abd pain 04/30/2017 Hospitalization History [facility]- Cannot urinate 05/30/2017 Hospitalization [facility]- Pancreatitis Sx 06/29/2017 Hospitalization [facility]- Stomach pain 07/22/2017 Hospitalization History [facility]- Left side pain 08/12/2017 Hospitalization History [facility]- Incision site infection 08/30/2017 Hospitalization History [facility]- Post Op Seroma/Hematoma Left Abdomen. Discharged 09/04/17- Dr Daniel 09/02/2017 Hospitalization History [facility]- Right shoulder and back pain 10/22/2017 Hospitalization [facility]- Shoulder/Back pain 11/11/2017 Hospitalization History [facility]- Right shoulder blade pain 12/04/2017 Hospitalization History [facility]- C-Diff 12/13/2017 Hospitalization History C diff et MRSA 12/27/2017 Hospitalization History Bowel abduction [facility] 10/2018
--- OUTSIDE RECORDS SUMMARY | 2018-11-15 13:58 | XMS REPORT ---
Author Author Migration, Doctor Organization [facility] Address Unknown Phone Unavailable Care Team Providers Care Candy Spreader Helper Name Role Phone Migration, Doctor Unavailable Unavailable PROBLEMS Type Condition ICD9-CM Code IVN07-OV Code Onset Dates Condition Status SNOMED Code Problem Morbid (severe) obesity due to excess calories E66.01 Active 703316990 Problem Chronic tension-type headache, intractable G44.221 Active 034686093 Problem Hirsuties L68.0 Active 074781232 Problem Hyperlipidemia, mixed E78.2 Active 743855303 Problem Chronic pancreatitis K86.1 Active 070529371 Problem FH: polycystic ovary Z84.2 Active 612767451 Problem Polydipsia R63.1 Active 25490568 Problem Asthma J45.909 Active 408249291 Problem Restless leg syndrome G25.81 Active 24646409 Problem Generalized social phobia F40.11 Active 85207481 Problem Chronic post-traumatic stress disorder (PTSD) F43.12 Active 899554637 Problem Obesities, morbid E66.01 Active 286528501 Problem Trichotillomania F63.3 Active 76559974 Problem Nodule of left lung R91.1 Active 239698243 Problem Menopausal symptoms N95.1 Active 58367853 Problem Atelectasis J98.11 Active 61326874 Problem History of renal cell carcinoma Z85.528 Active 112935127 Problem Right carpal tunnel syndrome G56.01 Active 407689658750549 Problem Moderate episode of recurrent major depressive disorder F33.1 Active 141371884 Problem Chronic fatigue R53.82 Active 00561588 Problem Intestinal malabsorption, unspecified K90.9 Active 43329991 Problem Primary osteoarthritis of right knee M17.11 Active [id number] ALLERGIES No Information ENCOUNTERS Encounter Location Date Diagnosis [facility] [address] [facility] [id number] [address] Nov, [facility] [address] [facility] [id number] [address] Nov, [facility] [address] [facility] [id number] [address] October, [facility] [address] [address] October, [facility] ELTON GARCÍA [address] [address] October, [facility] [address] [address] October, [facility] [address] [address] October, [facility] [address] [address] October, Morbid obesity E66.01 ; Routine gynecological examination Z01.419 and Menopausal symptoms N95.1 [facility] [address] [address] October, [facility] ELTON GARC[facility]A [address] [address] Sep, [facility] [address] [address] Sep, [facility] [address] [address] Sep, [facility] [address] [address] Sep, [facility] [address] [address] Sep, Lower extremity edema R60.0 [facility] [address] [address] Sep, [facility] [address] [address] Sep, Lower extremity edema R60.0 and Morbid obesity E66.01 [facility] [address] [address] Sep, [facility] [address] [facility] [id number] [place] [address] Sep, [facility] [address] [facility] [id number] [address] Aug, [facility] [address] [place] [id number] [address] Aug, Obesities, morbid E66.01 and Morbid obesity E66.01 [facility] [address] [facility] [id number] [address] Aug, [address] [address] Jul, [facility] [address] [address] Jul, [facility] [address] [address] Jul, [facility] [address] [address] Jul, [facility] [address] [address] Jul, Numbness of right hand R20.0 [facility] [address] [address] Jul, Numbness of right hand R20.0 [facility] [address] [address] Jul, [facility] [address] [address] Jul, [facility] [address] [address] Jul, Right-sided thoracic back pain M54.6 [facility] [address] [address] Jul, [facility] [address] [address] Jul, [facility] [address] [place] [id number] [place] [address] Jul, [facility] [address] [address] Jul, [facility] [address] [place] [id number] [place] [address] Jun, [facility] [address] [place] [address] Jun, Acute pain of right shoulder M25.511 ; Numbness of right hand R20.0 and Trapezius muscle spasm M62.838 [place] [address] [place] [id number] [place] [address] Jun, [place] [address] [place] [id number] [place] [address] Jun, [place] [address] [place] [id number] [place] [address] Jun, Cough R05 ; BMI 50.0-59.9, adult Z68.43 and Morbid obesity E66.01 [place] [address] [address] Jun, [facility] [address] [place] [id number] [place] [address] Jun, [facility] [address] [place] [address] 13 Jun, 2018 BMI 45.0-49.9, adult Z68.42 and Acute non-recurrent maxillary sinusitis J01.00 [facility] [address] [address] 09 Jun, 2018 Acute sinusitis J01.90 ; Dysuria R30.0 and BMI 45.0-49.9, adult Z68.42 [facility] [address] [address] Jun, [facility] [address] [place] [id number] [place] [address] Jun, [facility] [address] [address] [id number] [place] [address] May, [facility] [address] [address] May, [facility] [address] [place] [id number] [place] [address] May, [place] [address] [place] [id number] [place] [address] May, [place] [address] [place] [id number] [place] [address] May, [facility] [address] [address] [id number] [place] [address] Apr, Generalized social phobia F40.11 ; Trichotillomania F63.3 ; Chronic post-traumatic stress disorder (PTSD) F43.12 and BMI 45.0-49.9, adult Z68.42 [place] [address] [place] [id number] [place] [address] Apr, [place] [address] [place] [id number] [place] [address] Apr, Chronic tension-type headache, intractable G44.221 [facility] [address] [place] [id number] [place] [address] Apr, [facility] [address] [address] [id number] [place] [address] Mar, [facility] [address] [place] [id number] [place] [address] Mar, BMI 45.0-49.9, adult Z68.42 and Pimples R23.8 [place] [address] [place] [id number] [place] [address] Mar, [facility] [address] [id number] [place] [address] Mar, [facility] [address] [id number] [place] [address] Mar, Decreased urination R34 ; Chronic fatigue R53.82 ; Peripheral edema R60.9 ; Diarrhea, unspecified type R19.7 ; Non-intractable vomiting with nausea, unspecified vomiting type R11.2 ; BMI 45.0-49.9, adult Z68.42 and Chronic post-traumatic stress disorder (PTSD) F43.12 [place] [address] [id number] [place] [address] Mar, Intestinal malabsorption, unspecified K90.9 ; Diarrhea, unspecified R19.7 ; Urinary urgency R39.15 ; Rectal bleeding K62.5 and Decreased urine output R34 [place] [address] [place] [id number] [place] [address] Mar, Decreased urine output R34 [place] [address] [place] [id number] [place] [address] Mar, Rectal bleeding K62.5 [place] [address] [place] [id number] [place] [address] Mar, Rectal bleeding K62.5 [place] [address] [place] [id number] [place] [address] Mar, Urinary urgency R39.15 [place] [address] [place] [id number] [place] [address] Mar, Urinary urgency R39.15 [place] [address] [place] [id number] [place] [address] Mar, Primary osteoarthritis of right knee M17.11 and BMI 45.0-49.9, adult Z68.42 [place] [address] [place] [id number] [place] [address] Mar, [facility] [address] [address] Feb, Left upper arm pain M79.622 [facility] [address] [id number] [place] [address] Feb, [facility] [address] [id number] [place] [address] Jan, Acute pain of right knee M25.561 ; Right upper quadrant abdominal pain R10.11 and BMI 45.0-49.9, adult Z68.42 [facility] [id number] [place] [address] Jan, [facility] [id number] [place] [address] Jan, [facility] [address] [id number] [place] [address] Dec, [facility] [id number] [place] [address] Dec, Intestinal malabsorption, unspecified K90.9 and Diarrhea, unspecified R19.7 [facility] [address] [address] Dec, [facility] [address] [place] [address] Dec, Strep throat J02.0 ; Intestinal malabsorption, unspecified K90.9 ; Diarrhea, unspecified R19.7 ; Postoperative seroma involving digestive system after non-digestive system procedure K91.873 ; Hyperlipidemia, mixed E78.2 and BMI 45.0-49.9, adult Z68.42 [facility] [address] [place] [address] Dec, [facility] [id number] [place] [address] Dec, Nausea R11.0 [facility] [address] [address] Dec, [facility] [address] [address] Dec, Sore throat J02.9 ; Strep throat J02.0 and BMI 45.0-49.9, adult Z68.42 [facility] [address] [place] [address] Dec, [facility] [id number] [address] Dec, [facility] [id number] [place] [address] Dec, [facility] [id number] [place] [address] Dec, [facility] [id number] [place] [address] Dec, [facility] [address] [address] Dec, [facility] [address] [place] [address] Dec, [facility] [address] [address] Dec, [facility] [address] [address] Dec, Clostridium difficile colitis A04.72 ; Intractable vomiting with nausea, unspecified vomiting type R11.2 and BMI 45.0-49.9, adult Z68.42 [facility] [address] [address] Dec, [facility] [address] [address] Nov, [facility] [address] [place] [address] Nov, [place] [address] [id number] [place] [address] Nov, [place] [address] [address] [id number] [place] [address] Nov, [facility] [place] [address] [address] [id number] [place] [address] Nov, [place] [address] [address] Nov, Hyperlipidemia, mixed E78.2 [facility] [place] [address] [address] [id number] [place] [address] Nov, Acute suppurative otitis media of right ear without spontaneous rupture of tympanic membrane, recurrence not specified H66.001 and BMI 45.0-49.9, adult Z68.42 [place] [address] [id number] [place] [address] Nov, Hyperlipidemia, mixed E78.2 [place] [address] [address] [id number] [place] [address] Nov, [place] [address] [id number] [place] [address] Nov, [place] [address] [id number] [place] [address] Nov, Nodule of left lung R91.1 [place] [address] [address] [id number] [place] [address] Nov, Medicare annual wellness visit, initial Z00.00 [...] adult Z68.42 and Encounter for immunization Z23 [place] [address] [address] [id number] [place] [address] October, [facility] [id number] [place] [address] October, Nodule of left lung R91.1 [place] [address] [address] October, Nodule of left lung R91.1 [place] [address] [id number] [place] [address] October, Recurrent major depressive disorder, in partial remission F33.41 ; Restless leg syndrome G25.81 ; Generalized social phobia F40.11 ; Chronic post-traumatic stress disorder (PTSD) F43.12 ; BMI 45.0-49.9, adult Z68.42 and Trichotillomania F63.3 [place] [address] [address] October, [place] [address] [id number] [place] [address] Sep, Chronic fatigue R53.82 and BMI 45.0-49.9, adult Z68.42 [place] [address] [id number] [place] [address] Aug, [place] [address] [address] [id number] [place] [address] Jul, Restless leg syndrome G25.81 and B12 deficiency E53.8 [place] [address] [id number] [place] [address] Jul, [place] [address] [id number] [place] [address] Jul, [place] [address] [id number] [place] [address] Jun, [place] [address] [address] Jun, Fatigue, unspecified type R53.83 ; History of renal cell carcinoma Z85.528 ; Chronic pancreatitis K86.1 ; Restless leg syndrome G25.81 ; Dark urine R82.99 and BMI 45.0-49.9, adult Z68.42 [place] [address] [id number] [place] [address] Jun, [place] [address] [id number] [place] [address] Jun, [place] [address] [address] [id number] [place] [address] Jun, [place] [address] [id number] [place] [address] Jun, [place] [address] [id number] [place] [address] May, Chronic post-traumatic stress disorder (PTSD) F43.12 ; Moderate episode of recurrent major depressive disorder F33.1 ; Trichotillomania F63.3 and Generalized social phobia F40.11 [place] [address] [place] [address] May, [place] [address] [address] May, Chronic post-traumatic stress disorder (PTSD) F43.12 ; Moderate episode of recurrent major depressive disorder F33.1 ; Trichotillomania F63.3 and Generalized social phobia F40.11 [place] [address] [address] 07 May, 2017 Hyperlipidemia, mixed E78.2 ; Morbid (severe) obesity due to excess calories E66.01 ; Chronic post-traumatic stress disorder (PTSD) F43.12 ; Moderate episode of recurrent major depressive disorder F33.1 ; Trichotillomania F63.3 and Generalized social phobia F40.11 [place] [address] [place] [address] Apr, [place] [address] [id number] [place] [address] Apr, Hyperlipidemia, mixed E78.2 ; Morbid (severe) obesity due to excess calories E66.01 ; Chronic post-traumatic stress disorder (PTSD) F43.12 ; Moderate episode of recurrent major depressive disorder F33.1 ; Trichotillomania F63.3 and Generalized social phobia F40.11 [place] [address] [id number] [place] [address] Apr, Trichotillomania F63.3 ; Generalized social phobia F40.11 ; Chronic post-traumatic stress disorder (PTSD) F43.12 and Moderate episode of recurrent major depressive disorder F33.1 [place] [address] [id number] [place] [address] Apr, [place] [address] [id number] [place] [address] Apr, [place] [address] [id number] [place] [address] Mar, Moderate episode of recurrent major depressive disorder F33.1 ; Trichotillomania F63.3 ; Chronic post-traumatic stress disorder (PTSD) F43.12 ; Generalized social phobia F40.11 and Restless leg syndrome G25.81 [place] [address] [id number] [place] [address] Mar, [place] [address] [id number] [place] [address] Mar, [place] [address] [id number] [place] [address] Feb, Left kidney mass N28.89 [place] [address] [id number] [place] [address] Jan, [place] [address] [place] [address] Dec, Polydipsia R63.1 ; Chronic pancreatitis K86.1 and Fatigue, unspecified type R53.83 [facility] [address] [place] [address] Nov, [facility] [id number] [place] [address] Nov, [facility] [id number] [place] [address] Nov, Headache around the eyes R51 [facility] [id number] [place] [address] Nov, [facility] [id number] [place] [address] October, STD exposure Z20.2 [facility] [id number] [place] [address] October, STD exposure Z20.2 [facility] [id number] [place] [address] October, Chronic post-traumatic stress disorder (PTSD) F43.12 ; Generalized social phobia F40.11 ; Trichotillomania F63.3 and Restless leg syndrome G25.81 [facility] [address] [address] October, [facility] [id number] [place] [address] Sep, [facility] [id number] [address] Aug, [facility] [id number] [place] [address] Aug, [facility] [id number] [address] Aug, Neck mass R22.1 [facility] [id number] [place] [address] 03 Aug, 2016 Atelectasis J98.11 [place] [address] [address] 28 Jul, 2016 Hyperlipidemia, mixed E78.2 ; Atypical pneumonia J18.9 and Neck mass R22.[address] [address] 15 Jul, 2016 Hemoptysis R04.2 [place] [address] [address] 08 Jul, 2016 Acute non-recurrent pansinusitis J01.40 ; Hemoptysis R04.2 ; Polydipsia R63.1 and Malaise R53.81 [facility] [address] [address] May, Other viral agents as the cause of diseases classified elsewhere B97.89 and Acute upper respiratory infection, unspecified J06.9 [facility] [address] [address] Mar, Nausea R11.0 [facility] [address] [address] 28 Dec, 2015 Hives L50.9 [place] [id number] [place] [phone] 14 Dec, 2015 [facility] [place] [id number] [place] [phone] 10 Dec, 2015 Cutaneous abscess of limb, unspecified L02.419 ; Cellulitis of unspecified part of limb L03.119 ; Encounter for incision and drainage procedure Z01.89 and Encounter for recheck of abscess following incision and drainage Z09 [facility] [place] [id number] [place] [phone] 09 Dec, 2015 Abscess of leg, right L02.[address] [place] [address] Dec, Cellulitis of unspecified part of limb L03.119 and Cutaneous abscess of limb, unspecified L02.419 [place] [address] [place] [id number] [place] [id number] Dec, [place] [address] [place] [id number] [place] [phone] Dec, [facility] [address] [place] [id number] [place] [phone] Aug, [place] [address] [place] [id number] [place] [phone] Aug, [facility] [place] [address] [place] [id number] [place] [phone] Jul, Pain in unspecified wrist M25.539 and Back pain, thoracic M54.6 [facility] [place] [address] [place] [id number] [place] [phone] Jun, Strain of right wrist, initial encounter S66.911A [place] [address] [address] Jun, Chronic pancreatitis, unspecified pancreatitis type K86.1 ; Hirsuties L68.0 ; Morbid (severe) obesity due to excess calories E66.01 ; Chronic pancreatitis K86.1 and Asthma J45.909 [place] [address] [place] [id number] [place] [phone] May, [place] [address] [place] [id number] [place] [phone] May, Hyperlipidemia, mixed E78.2 and Muscle spasm of back M62.830 [place] [address] [place] [id number] [place] [phone] Apr, [place] [address] [place] [id number] [place] [phone] Apr, Torticollis M43.6 [facility] [address] [place] [id number] [place] [phone] Apr, Right-sided thoracic back pain M54.6 [facility] [address] [place] [id number] [place] [phone] Mar, Rash R21 [facility] [facility] [id number] [place] [id number] Mar, [facility] [id number] [place] [address] Jan, [facility] [id number] [place] [address] Dec, [facility] [id number] [place] [address] Dec, Urinary frequency 788.41 and Nocturia more than twice per night 788.43 [facility] [id number] [place] [address] Nov, [facility] [id number] [place] [address] Nov, [facility] [id number] [place] [address] Nov, Abdominal pain 789.00 [facility] [id number] [place] [address] October, TDAP DX V06.1 [facility] [id number] [place] [address] October, [facility] [id number] [place] [address] October, Disturbance of skin sensation 782.0 ; Wrist pain, right 719.43 ; Hyperlipidemia 272.4 and Skin lesion of face 709.9 [facility] [id number] [place] [address] Sep, [facility] [address] [id number] [address] 13 Sep, 2014 [facility] [address] [id number] [place] [address] 26 Aug, 2014 [facility] [place] [facility] [address] [id number] [place] [address] 26 Aug, 2014 [facility] [place] [facility] [address] [id number] [place] [address] 23 Aug, 2014 [facility] [place] [facility] [address] [id number] [place] [address] 23 Aug, 2014 [facility] [place] [facility] [address] [id number] [place] [address] 16 Aug, 2014 [facility] [place] [facility] [address] [id number] [place] [address] 16 Aug, 2014 [facility] [place] [facility] [address] [id number] [place] [address] 14 Aug, 2014 [facility] [address] [id number] [place] [address] 14 Aug, 2014 [facility] [place] [facility] [address] [id number] [place] [address] Aug, [facility] [place] [facility] [address] [id number] [place] [address] Aug, [facility] [place] [facility] [address] [id number] [place] [address] 04 Aug, 2014 [facility] [place] [facility] [address] [id number] [place] [address] 04 Aug, 2014 [facility] [place] [facility] [address] [id number] [place] [address] Aug, [facility] [place] [facility] [address] [id number] [place] [address] Aug, [facility] [place] [facility] [address] [id number] [place] [address] Jul, [facility] [place] [facility] [address] [id number] [place] [address] Jul, [facility] [place] [facility] [address] [id number] [place] [address] Jul, [facility] [place] [facility] [address] [id number] [place] [address] Jul, [facility] [place] [facility] [address] [id number] [place] [address] Jul, [facility] [place] [facility] [address] [id number] [place] [address] Jul, [facility] [place] [facility] [address] [id number] [place] [address] Jun, [facility] [place] [facility] [address] [id number] [place] [address] Jun, [facility] [place] [facility] [address] [id number] [place] [address] Jun, [facility] [place] [facility] [address] [id number] [place] [address] Jun, [facility] [place] [facility] [address] [id number] [place] [address] Jun, [facility] [place] [facility] [address] [id number] [place] [address] Jun, [facility] [place] [facility] [address] [id number] [address] Jun, [facility] [place] [facility] [address] [id number] [place] [address] Jun, [facility] [place] [facility] [address] [id number] [place] [address] May, [facility] [place] [facility] [address] [id number] [place] [address] May, [facility] [place] [facility] [address] [id number] [place] [address] May, [facility] [address] [id number] [place] [address] May, [facility] [place] [facility] [address] [id number] [place] [address] May, [facility] [place] [facility] [address] [id number] [place] [address] May, [facility] [place] [facility] [address] [id number] [place] [address] May, [facility] [place] [facility] [address] [id number] [place] [address] May, [facility] [place] [facility] [address] [id number] [place] [address] May, [facility] [place] [facility] [address] [id number] [place] [address] May, [facility] [place] [facility] [address] [id number] [place] [address] May, [facility] [place] [facility] [address] [id number] [place] [address] May, [facility] [place] [facility] [address] [id number] [place] [address] Apr, [facility] [place] [facility] [address] [id number] [place] [address] Apr, [facility] [place] [facility] [address] [id number] [place] [address] Apr, [facility] [place] [facility] [address] [id number] [place] [address] Apr, [facility] [place] [facility] [address] [id number] [place] [address] Apr, [facility] [place] [facility] [address] [id number] [place] [address] Apr, [facility] [place] [facility] [address] [id number] [place] [address] 14 Apr, 2014 [facility] [place] [facility] [address] [id number] [place] [address] 14 Apr, 2014 [facility] [place] [facility] [address] [id number] [place] [address] Apr, [facility] [place] [facility] [address] [id number] [place] [address] Apr, [facility] [place] [facility] [address] [id number] [place] [address] Apr, [facility] [place] [facility] [address] [id number] [place] [address] Apr, [facility] [place] [facility] [address] [id number] [place] [address] 14 Mar, 2014 [facility] [place] [facility] [address] [id number] [place] [address] Mar, [facility] [place] [facility] [address] [id number] [place] [address] Mar, [facility] [place] [facility] [address] [id number] [place] [address] Mar, [facility] [place] [facility] [address] [facility] [id number] [place] [address] 10 Feb, 2014 [facility] [place] [facility] [address] [id number] [place] [address] Feb, [facility] [place] [facility] [address] [id number] [place] [address] 05 Feb, 2014 [facility] [place] [facility] [address] [id number] [place] [address] 05 Feb, 2014 [facility] [place] [facility] [address] [id number] [place] [address] 05 Feb, 2014 [facility] [place] [facility] [address] [id number] [place] [address] Feb, [facility] [place] [facility] [address] [id number] [place] [address] Jan, [facility] [place] [facility] [address] [id number] [place] [address] Jan, [facility] [place] [facility] [address] [id number] [place] [address] Jan, [facility] [place] [facility] [address] [id number] [place] [address] Jan, [facility] [place] [facility] [address] [id number] [place] [address] Jan, [facility] [place] [facility] [address] [id number] [place] [address] Jan, [facility] [place] [facility] [address] [id number] [place] [address] Jan, [facility] [place] [facility] [address] [id number] [place] [address] Jan, [facility] [place] [facility] [address] [id number] [place] [address] Jan, [facility] [place] [facility] [address] [id number] [place] [address] Jan, [facility] [place] [facility] [address] [id number] [place] [address] Jan, [facility] [place] [facility] [address] [id number] [place] [address] Jan, [facility] [place] [facility] [address] [id number] [place] [address] Jan, [facility] [place] [facility] [address] [id number] [place] [address] Jan, [facility] [place] [facility] [address] [id number] [place] [address] Dec, [facility] [place] [facility] [address] [id number] [place] [address] Dec, [facility] [place] [facility] [address] [id number] [place] [address] Dec, [facility] [place] [facility] [address] [id number] [place] [address] Dec, [facility] [place] [facility] [address] [id number] [place] [address] Nov, [facility] [place] [facility] [address] [id number] [place] [address] Nov, [facility] [place] [facility] [address] [id number] [place] [address] Nov, [facility] [place] [facility] [address] [id number] [place] [address] Nov, [facility] [place] [facility] [address] [id number] [place] [address] Nov, [facility] [place] [facility] [address] [id number] [place] [address] October, [facility] [place] [facility] [address] [id number] [place] [address] October, [facility] [place] [facility] [address] [id number] [place] [address] October, [facility] [place] [facility] [address] [id number] [place] [address] October, [facility] [place] [facility] [address] [id number] [place] [address] October, [facility] [place] [facility] [address] [id number] [place] [address] October, [facility] [place] [facility] [address] [id number] [place] [address] October, [facility] [place] [facility] [address] [id number] [place] [address] October, [facility] [place] [facility] [address] [id number] [place] [address] October, [facility] [place] [facility] [address] [id number] [place] [address] October, [facility] [place] [facility] [address] [id number] [place] [address] October, [facility] [place] [facility] [address] [id number] [place] [address] October, [facility] [place] [facility] [address] [id number] [place] [address] October, [facility] [place] [facility] [address] [id number] [place] [address] October, [facility] [place] [facility] [address] [id number] [place] [address] Sep, [facility] [place] [facility] [address] [id number] [place] [address] Sep, [facility] [place] [facility] [address] [id number] [place] [address] Sep, [facility] [place] [facility] [address] [id number] [place] [address] Sep, [facility] [place] [facility] [address] [id number] [place] [address] Sep, [facility] [place] [facility] [address] [id number] [place] [address] Sep, [facility] [place] [facility] [address] [id number] [place] [address] Sep, [facility] [place] [facility] [address] [id number] [place] [address] Sep, [facility] [place] [facility] [address] [id number] [place] [address] Sep, [facility] [place] [facility] [address] [id number] [place] [address] Sep, [facility] [place] [facility] [address] [id number] [place] [address] Sep, [facility] [place] [facility] [address] [id number] [place] [address] Sep, [facility] [place] [facility] [address] [id number] [place] [address] Sep, [facility] [place] [facility] [address] [id number] [place] [address] Sep, [facility] [place] [facility] [address] [id number] [place] [address] Sep, [facility] [place] [facility] [address] [id number] [place] [address] Aug, [facility] [place] [facility] [address] [id number] [place] [address] Aug, [facility] [place] [facility] [address] [id number] [place] [address] Aug, [facility] [place] [facility] [address] [id number] [place] [address] Aug, [facility] [place] [facility] [address] [facility] [id number] [place] [address] Jul, [facility] [place] [facility] [address] [id number] [place] [address] Jul, [facility] [place] [facility] [address] [id number] [place] [address] Jul, [facility] [place] [facility] [address] [id number] [place] [address] Jul, [facility] [place] [facility] [address] [id number] [place] [address] Jun, [facility] [place] [facility] [address] [id number] [place] [address] Jun, [facility] [address] [id number] [place] [address] 15 Jun, 2013 [facility] [address] [id number] [place] [address] 15 Jun, 2013 [facility] [address] [id number] [place] [address] Jun, [facility] [address] [id number] [place] [address] Jun, [facility] [address] [id number] [place] [address] Jun, [facility] [address] [id number] [place] [address] Jun, [facility] [address] [id number] [place] [address] 20 May, 2013 [facility] [address] [id number] [place] [address] 20 May, 2013 [facility] [address] [id number] [place] [address] 18 May, 2013 [facility] [address] [id number] [place] [address] 18 May, 2013 [facility] [address] [id number] [place] [address] 17 May, 2013 [facility] [address] [id number] [place] [id number] 17 May, 2013 [facility] [place] [facility] [address] [id number] [place] [address] 17 May, 2013 [facility] [place] [facility] [address] [id number] [place] [address] 17 May, 2013 [facility] [place] [facility] [address] [id number] [place] [address] 16 May, 2013 [facility] [address] [id number] [place] [address] 16 May, 2013 [facility] [address] [id number] [place] [address] 14 May, 2013 [facility] [place] [facility] [address] [id number] [place] [address] 14 May, 2013 [facility] [place] [facility] [address] [id number] [place] [address] 13 May, 2013 [facility] [place] [facility] [address] [id number] [place] [address] 13 May, 2013 [facility] [place] [facility] [address] [id number] [place] [address] 12 May, 2013 [facility] [place] [facility] [address] [id number] [place] [address] 12 May, 2013 [facility] [address] [id number] [place] [address] 11 May, 2013 [facility] [place] [facility] [address] [id number] [place] [address] May, [facility] [place] [facility] [address] [id number] [place] [address] Apr, [facility] [place] [facility] [address] [id number] [place] [address] Apr, [facility] [place] [facility] [address] [id number] [place] [address] Apr, [facility] [place] [facility] [address] [id number] [place] [address] Apr, [facility] [place] [facility] [address] [id number] [place] [address] 27 Aug, 2012 [facility] [place] [facility] [address] [id number] [place] [address] 18 Aug, 2012 [facility] [place] [facility] [address] [id number] [place] [address] 06 Aug, 2012 [facility] [place] [facility] [address] [id number] [place] [address] Aug, [facility] [address] [id number] [place] [address] Jul, [facility] [address] [id number] [place] [address] Jun, [facility] [address] [id number] [place] [address] Jun, [facility] [address] [id number] [place] [address] Jun, [facility] [address] [id number] [place] [address] Jun, [facility] [address] [id number] [place] [address] May, [facility] [address] [id number] [place] [address] May, [facility] [address] [id number] [place] [address] May, [facility] [address] [id number] [place] [address] May, [facility] [address] [id number] [place] [address] May, [facility] [address] [id number] [place] [address] May, [facility] [address] [id number] [place] [address] May, [facility] [place] [facility] [address] [id number] [place] [address] Apr, [facility] [address] [id number] [place] [address] Apr, [facility] [address] [id number] [place] [address] Apr, [facility] [place] [facility] [address] [id number] [place] [address] Apr, [facility] [place] [facility] [address] [id number] [place] [address] Apr, [facility] [place] [facility] [address] [id number] [place] [address] Apr, [facility] [place] [facility] [address] [id number] [place] [address] Apr, [facility] [place] [facility] [address] [id number] [place] [address] Mar, [facility] [place] [facility] [address] [id number] [place] [address] Mar, [facility] [place] [facility] [address] [id number] [place] [address] Mar, [facility] [place] [facility] [address] [id number] [place] [address] Mar, [facility] [place] [facility] [address] [id number] [place] [address] Mar, [facility] [place] [facility] [address] [id number] [place] [address] Mar, [facility] [place] [facility] [address] [id number] [place] [address] Mar, [facility] [place] [facility] [address] [id number] [place] [address] Mar, [facility] [place] [facility] [address] [id number] [place] [address] 15 Mar, 2012 [facility] [place] [facility] [address] [id number] [place] [address] Mar, [facility] [place] [facility] [address] [facility] [id number] [place] [address] Mar, [facility] [place] [facility] [address] [id number] [place] [address] Mar, [facility] [place] [facility] [address] [id number] [place] [address] Feb, [facility] [place] [facility] [address] [id number] [place] [address] Jan, [facility] [place] [facility] [address] [id number] [place] [address] Jan, [facility] [place] [facility] [address] [id number] [place] [address] Jan, [facility] [place] [facility] [address] [id number] [place] [address] Jan, [facility] [place] [facility] [address] [id number] [place] [address] Jan, [facility] [place] [facility] [address] [id number] [place] [address] Dec, [facility] [place] [facility] [address] [id number] [place] [address] Dec, [facility] [place] [facility] [address] [id number] [place] [address] Nov, [facility] [place] [facility] [address] [id number] [place] [address] Nov, [facility] [place] [facility] [address] [id number] [place] [address] Nov, [facility] [place] [facility] [address] [id number] [place] [address] October, [facility] [place] [facility] [address] [id number] [place] [address] October, [facility] [place] [facility] [address] [id number] [place] [address] October, [facility] [place] [facility] [address] [id number] [place] [address] October, [facility] [place] [facility] [address] [id number] [place] [address] 16 Oct, 2011 [facility] [address] [id number] [place] [address] October, [facility] [place] [facility] [address] [id number] [place] [address] October, [facility] [address] [id number] [place] [address] Sep, [facility] [address] [id number] [place] [address] Sep, [facility] [place] [facility] [address] [id number] [place] [address] Sep, [facility] [address] [id number] [place] [address] 25 Sep, 2011 [facility] [address] [id number] [place] [address] 24 Sep, 2011 [facility] [address] [id number] [place] [address] 19 Sep, 2011 [facility] [address] [id number] [place] [address] 17 Sep, 2011 [facility] [place] [facility] [address] [id number] [place] [address] 16 Sep, 2011 [facility] [place] [facility] [address] [id number] [place] [address] 16 Sep, 2011 [facility] [place] [facility] [address] [id number] [place] [address] 14 Sep, 2011 [facility] [place] [facility] [address] [id number] [place] [address] 13 Sep, 2011 [facility] [place] [facility] [address] [id number] [place] [address] 10 Sep, 2011 [facility] [place] [facility] [address] [id number] [place] [address] Sep, [facility] [address] [id number] [place] [address] Aug, [facility] [place] [facility] [address] [id number] [place] [address] Aug, [facility] [address] [facility] [id number] [place] [address] 08 Aug, 2011 [facility] [place] [facility] [address] [id number] [place] [address] 06 Aug, 2011 [facility] [address] [id number] [place] [address] 28 Jul, 2011 [facility] [place] [facility] [address] [facility] [id number] [place] [address] 22 Jul, 2011 [facility] [address] [facility] [id number] [place] [address] 16 Jul, 2011 [facility] [place] [facility] [address] [id number] [place] [address] 15 Jul, 2011 [facility] [address] [facility] [id number] [place] [address] 14 Jul, 2011 [facility] [address] [facility] [id number] [place] [address] 10 Jul, 2011 [facility] [address] [facility] [id number] [place] [address] Jun, [facility] [place] [facility] [address] [id number] [place] [address] Jun, [facility] [place] [facility] [address] [id number] [place] [address] Jun, [facility] [place] [facility] [address] [facility] [id number] [place] [address] Jun, [facility] [place] [facility] [address] [facility] [id number] [place] [address] Jun, [facility] [place] [facility] [address] [id number] [place] [address] 27 May, 2011 [facility] [place] [facility] [address] [id number] [place] [address] May, [facility] [place] [facility] [address] [id number] [place] [address] 14 May, 2011 [facility] [place] [facility] [address] [id number] [place] [address] 14 May, 2011 [facility] [place] [facility] [address] [id number] [place] [address] 12 May, 2011 [facility] [place] [facility] [address] [id number] [place] [address] 07 May, 2011 [facility] [place] [facility] [address] [id number] [place] [address] 05 May, 2011 [facility] [place] [facility] [address] [id number] [place] [address] 15 Apr, 2011 [facility] [place] [facility] [address] [id number] [place] [address] 15 Apr, 2011 [facility] [place] [facility] [address] [id number] [place] [address] 07 Apr, 2011 [facility] [place] [facility] [address] [id number] [place] [address] Apr, [facility] [place] [facility] [address] [id number] [place] [address] 04 Apr, 2011 [facility] [place] [facility] [address] [id number] [place] [address] Apr, [facility] [place] [facility] [address] [id number] [place] [address] 28 Mar, 2011 [facility] [place] [facility] [address] [id number] [place] [address] Mar, [facility] [place] [facility] [address] [id number] [place] [address] Mar, [facility] [address] [id number] [place] [address] Mar, [facility] [place] [facility] [address] [id number] [place] [address] Jan, [facility] [place] [facility] [address] [id number] [place] [address] Dec, [facility] [place] [facility] [address] [id number] [place] [address] Dec, [facility] [place] [facility] [address] [id number] [place] [address] October, [facility] [place] [facility] [address] [id number] [place] [address] Sep, [facility] [place] [facility] [address] [id number] [place] [address] Sep, [facility] [place] [facility] [address] [id number] [place] [address] Jul, [facility] [place] [facility] [address] [id number] [place] [address] Jul, [facility] [place] [facility] [address] [id number] [place] [address] May, [facility] [place] [facility] [address] [id number] [place] [address] May, [facility] [place] [facility] [address] [id number] [place] [address] May, [facility] [place] [facility] [address] [id number] [place] [address] May, [facility] [place] [facility] [address] [id number] [place] [address] Apr, [facility] [place] [facility] [address] [id number] [place] [address] Apr, [facility] [place] [facility] [address] [id number] [place] [address] 18 Apr, 2010 [facility] [address] [id number] [place] [address] 18 Apr, 2010 [facility] [place] [facility] [address] [id number] [place] [address] Apr, [facility] [address] [id number] [place] [address] 21 Mar, 2010 [facility] [place] [facility] [address] [id number] [place] [address] 14 Mar, 2010 [facility] [address] [id number] [place] [address], [place] [address] 13 Mar, 2010 [facility] [address] [id number] [place] [address] 12 Mar, 2010 [facility] [address] [id number] [place] [address] Jan, [facility] [address] [id number] [place] [address] 15 Dec, 2009 [facility] [address] [id number] [place] [address] 10 Sep, 2009 [facility] [address] [facility] [id number] [place] [address] 08 May, 2009 [facility] [place] [facility] [address] [id number] [place] [address] 06 May, 2009 [facility] [place] [facility] [address] [id number] [place] [address] 02 May, 2009 [facility] [place] [facility] [address] [id number] [place] [address] 17 Apr, 2009 [facility] [place] [facility] [address] [id number] [place] [address] 17 Apr, 2009 [facility] [place] [facility] [address] [id number] [place] [address] Apr, [facility] [address] [facility] [id number] [address] Apr, [facility] [address] [id number] [address] Apr, [facility] [address] [facility] [id number] [place] [address] Mar, [facility] [address] [id number] [address] Mar, [facility] [address] [facility] [id number] [place] [address] Jul, IMMUNIZATIONS No Known Immunizations SOCIAL HISTORY Never Assessed REASON FOR VISIT EMR-[facility] [place], [place] PLAN OF CARE VITAL SIGNS MEDICATIONS Unknown [...] [facility]ization [facility]- Abd pain 03/07/2017 Hospitalization History [facility]- Abd pain 03/14/2017 Hospitalization History [facility]- No bowel movement, rash 04/13/2017 Hospitalization History [facility]- Abd pain r/t kidney surgery on 04/10/17 04/17/2017 Hospitalization History [facility]- Abd pain r/t kidney surgery on 04/10/17 04/18/2017 Hospitalization History [facility]- Lower abd pain 04/30/2017 Hospitalization History [facility]- Cannot urinate 05/30/2017 Hospitalization History [facility]- Pancreatitis Sx 06/29/2017 Hospitalization History [facility]- Stomach pain 07/22/2017 Hospitalization History [facility]- Left side pain 08/12/2017 Hospitalization History [facility]- Incision site infection 08/30/2017 Hospitalization History [facility]- Post Op Seroma/Hematoma Left Abdomen. Discharged 09/04/17- Dr Daniel 09/02/2017 Hospitalization History [facility]- Right shoulder and back pain 10/22/2017 Hospitalization History [facility]- Shoulder/Back pain 11/11/2017 Hospitalization History [facility]- Right shoulder blade pain 12/04/2017 Hospitalization History [facility]- C-Diff 12/13/2017 Hospitalization History C diff et MRSA 12/27/2017
--- OUTSIDE RECORDS SUMMARY | 2018-11-15 14:00 | XMS REPORT ---
Author Author Migration, Doctor Organization [facility] Address Unknown Phone Unavailable Care Team Providers Care Enterprise Systems Architect Name Role Phone Migration, Doctor Unavailable Unavailable PROBLEMS Type Condition ICD9-CM Code [id number] Code Onset Dates Condition Status SNOMED Code Problem Morbid (severe) obesity due to excess calories E66.01 Active 239693808 Problem Chronic tension-type headache, intractable G44.221 Active 657470676 Problem Hirsuties L68.0 Active 481072959 Problem Hyperlipidemia, mixed E78.2 Active 232044142 Problem Chronic pancreatitis K86.1 Active 808189032 Problem FH: polycystic ovary Z84.2 Active 858482700 Problem Polydipsia R63.1 Active 72882458 Problem Asthma J45.909 Active 269390043 Problem Restless leg syndrome G25.81 Active 86912821 Problem Generalized social phobia F40.11 Active 29914721 Problem Chronic post-traumatic stress disorder (PTSD) F43.12 Active 492885307 Problem Obesities, morbid E66.01 Active 263654423 Problem Trichotillomania F63.3 Active 05186478 Problem Nodule of left lung R91.1 Active 260044049 Problem Menopausal symptoms N95.1 Active 59229514 Problem Atelectasis J98.11 Active 07127688 Problem History of renal cell carcinoma Z85.528 Active 373245991 Problem Right carpal tunnel syndrome G56.01 Active 935037294172699 Problem Moderate episode of recurrent major depressive disorder F33.1 Active 268697840 Problem Chronic fatigue R53.82 Active 08318536 Problem Intestinal malabsorption, unspecified K90.9 Active 06775200 Problem Primary osteoarthritis of right knee M17.11 Active [id number] ALLERGIES No Information ENCOUNTERS Encounter Location Date Diagnosis [facility] [address] [facility] [id number], [place] [address] Nov, [facility] [address] [facility] [id number], [place] [address] Nov, [facility] [address] [facility] [id number], [place] [address] October, [facility] [address], [place] [address] October, [facility] [address] [address] October, [facility] [address], [place] [address] October, [facility] [address] [address] October, [facility] [address], [place] [address] October, Morbid obesity E66.01 ; Routine gynecological examination Z01.419 and Menopausal symptoms N95.1 [facility] [address] [address] October, [facility] [address] [address] Sep, [facility] [address], [place] [address] Sep, [facility] [address], [place] [address] Sep, [facility] [address], [place] [address] Sep, [facility] [address], [place] [address] Sep, Lower extremity edema R60.0 [facility] [address], [place] [address] Sep, [facility] [address], [place] [address] Sep, Lower extremity edema R60.0 and Morbid obesity E66.01 [facility] [address] [address] Sep, [facility] [address] [facility] [id number], [place] [address] Sep, [facility] [address] [facility] [id number], [place] [address] Aug, [facility] [address] [facility] [id number], [place] [address] Aug, Obesities, morbid E66.01 and Morbid obesity E66.01 [facility] [address] [facility] [id number], [place] [address] Aug, [address] [address] Jul, [facility] [address], [place] [address] Jul, [facility] [address], [place] [address] Jul, [facility] [address], [place] [address] Jul, Numbness of right hand R20.0 [facility] [address] [address] Jul, [facility] [address], [place] [address] Jul, Numbness of right hand R20.0 [facility] [address], [place] [address] Jul, [facility] [address] [place] [id number] [address] Jul, [facility] [address], [place] [address] Jul, Right-sided thoracic back pain M54.6 [facility] [address], [place] [address] Jul, [facility] [address], [place] [address] Jul, [facility] [id number] [place] [address] Jul, [facility] [address], [place] [address] Jul, [facility] [id number] [place] [address] Jun, [facility] [address] [place] [address] Jun, Acute pain of right shoulder M25.511 ; Numbness of right hand R20.0 and Trapezius muscle spasm M62.838 [place] [id number] [place] [address] Jun, [place] [address] [id number] [place] [address] Jun, [place] [address] [place] [id number] [place] [address] Jun, Cough R05 ; BMI 50.0-59.9, adult Z68.43 and Morbid obesity E66.01 [place] [address], [place] [address] Jun, [facility] [id number] [place] [address] Jun, [facility] [address] [place] [address] 13 Jun, 2018 BMI 45.0-49.9, adult Z68.42 and Acute non-recurrent maxillary sinusitis J01.00 [facility] [address], [place] [address] 09 Jun, 2018 Acute sinusitis J01.90 ; Dysuria R30.0 and BMI 45.0-49.9, adult Z68.42 [facility] [address], [place] [address] Jun, [facility] [id number] [place] [address] Jun, [facility] [id number] [place] [address] May, [facility] [address] [address] May, [facility] [id number] [place] [address] May, [place] [id number] [place] [address] May, [place] [id number] [place] [address] May, [facility] [id number] [place] [address] Apr, Generalized social phobia F40.11 ; Trichotillomania F63.3 ; Chronic post-traumatic stress disorder (PTSD) F43.12 and BMI 45.0-49.9, adult Z68.42 [place] [id number] [place] [address] Apr, [place] [id number] [place] [address] Apr, Chronic tension-type headache, intractable G44.221 [facility] [id number] [place] [address] Apr, [facility] [id number] [place] [address] Mar, [facility] [id number] [place] [address] Mar, BMI 45.0-49.9, adult Z68.42 and Pimples R23.8 [place] [id number] [place] [address] Mar, [facility] [id number] [place] [address] Mar, [facility] [id number] [place] [address] Mar, Decreased urination R34 ; Chronic fatigue R53.82 ; Peripheral edema R60.9 ; Diarrhea, unspecified type R19.7 ; Non-intractable vomiting with nausea, unspecified vomiting type R11.2 ; BMI 45.0-49.9, adult Z68.42 and Chronic post-traumatic stress disorder (PTSD) F43.12 [place] [id number] [place] [address] Mar, Intestinal malabsorption, unspecified K90.9 ; Diarrhea, unspecified R19.7 ; Urinary urgency R39.15 ; Rectal bleeding K62.5 and Decreased urine output R34 [place] [id number] [place] [address] Mar, Decreased urine output R34 [place] [id number] [place] [address] Mar, Rectal bleeding K62.5 [place] [id number] [place] [address] Mar, Rectal bleeding K62.5 [place] [id number] [place] [address] Mar, Urinary urgency R39.15 [place] [id number] [place] [address] Mar, Urinary urgency R39.15 [place] [id number] [place] [address] Mar, Primary osteoarthritis of right knee M17.11 and BMI 45.0-49.9, adult Z68.42 [place] [address] [place] [id number] [place] [address] Mar, [facility] [address], [place] [address] Feb, Left upper arm pain M79.622 [facility] [id number] [place] [address] Feb, [facility] [id number] [place] [address] Jan, Acute pain of right knee M25.561 ; Right upper quadrant abdominal pain R10.11 and BMI 45.0-49.9, adult Z68.42 [facility] [id number] [place] [address] Jan, [facility] [address] [place] [address] Jan, [facility] [id number] [place] [address] Dec, [facility] [address] [place] [address] Dec, Intestinal malabsorption, unspecified K90.9 and Diarrhea, unspecified R19.7 [facility] [address], [place] [address] Dec, [facility] [address] [place] [address] Dec, Strep throat J02.0 ; Intestinal malabsorption, unspecified K90.9 ; Diarrhea, unspecified R19.7 ; Postoperative seroma involving digestive system after non-digestive system procedure K91.873 ; Hyperlipidemia, mixed E78.2 and BMI 45.0-49.9, adult Z68.42 [facility] [address] [place] [address] Dec, [facility] [address] [place] [address] Dec, Nausea R11.0 [facility] [address], [place] [address] Dec, [facility] [address], [place] [address] Dec, Sore throat J02.9 ; Strep throat J02.0 and BMI 45.0-49.9, adult Z68.42 [facility] [address] [place] [address] Dec, [facility] [id number], [place] [address] Dec, [facility] [id number] [place] [address] Dec, [facility] [id number] [place] [address] Dec, [facility] [id number] [place] [address] Dec, [facility] [address], [place] [address] Dec, [facility] [address] [place] [address] Dec, [facility] [address], [place] [address] Dec, [facility] [address], [place] [address] Dec, Clostridium difficile colitis A04.72 ; Intractable vomiting with nausea, unspecified vomiting type R11.2 and BMI 45.0-49.9, adult Z68.42 [facility] [address], [place] [address] Dec, [facility] [address], [place] [address] Nov, [facility] [address] [place] [address] Nov, [place] [id number] [place] [address] Nov, [place] [id number] [place] [address] Nov, [facility] [place] [id number] [place] [address] Nov, [place] [address] [address] Nov, Hyperlipidemia, mixed E78.2 [facility] [place] [id number] [place] [address] Nov, Acute suppurative otitis media of right ear without spontaneous rupture of tympanic membrane, recurrence not specified H66.001 and BMI 45.0-49.9, adult Z68.42 [place] [id number] [place] [address] Nov, Hyperlipidemia, mixed E78.2 [place] [id number] [place] [address] Nov, [place] [id number] [place] [address] Nov, [place] [id number] [place] [address] Nov, Nodule of left lung R91.1 [place] [id number] [place] [address] Nov, Medicare annual wellness visit, initial Z00.00 [...] adult Z68.42 and Encounter for immunization Z23 [place] [id number] [place] [address] October, [facility] [id number] [place] [address] October, Nodule of left lung R91.1 [place] [address] [address] October, Nodule of left lung R91.1 [place] [id number] [place] [address] October, Recurrent major depressive disorder, in partial remission F33.41 ; Restless leg syndrome G25.81 ; Generalized social phobia F40.11 ; Chronic post-traumatic stress disorder (PTSD) F43.12 ; BMI 45.0-49.9, adult Z68.42 and Trichotillomania F63.3 [place] [address] [address] October, [place] [id number] [place] [address] Sep, Chronic fatigue R53.82 and BMI 45.0-49.9, adult Z68.42 [place] [id number] [place] [address] Aug, [place] [id number] [place] [address] Jul, Restless leg syndrome G25.81 and B12 deficiency E53.8 [place] [id number] [place] [address] Jul, [place] [id number] [place] [address] Jul, [place] [id number] [place] [address] Jun, [place] [address], [place] [address] Jun, Fatigue, unspecified type R53.83 ; History of renal cell carcinoma Z85.528 ; Chronic pancreatitis K86.1 ; Restless leg syndrome G25.81 ; Dark urine R82.99 and BMI 45.0-49.9, adult Z68.42 [place] [id number] [place] [address] Jun, [place] [id number] [place] [address] Jun, [place] [id number] [place] [address] Jun, [place] [id number] [place] [address] Jun, [place] [id number] [place] [address] May, Chronic post-traumatic stress disorder (PTSD) F43.12 ; Moderate episode of recurrent major depressive disorder F33.1 ; Trichotillomania F63.3 and Generalized social phobia F40.11 [place] [address] [place] [address] May, [place] [address], [place] [address] May, Chronic post-traumatic stress disorder (PTSD) F43.12 ; Moderate episode of recurrent major depressive disorder F33.1 ; Trichotillomania F63.3 and Generalized social phobia F40.11 [place] [address], [place] [address] 07 May, 2017 Hyperlipidemia, mixed E78.2 ; Morbid (severe) obesity due to excess calories E66.01 ; Chronic post-traumatic stress disorder (PTSD) F43.12 ; Moderate episode of recurrent major depressive disorder F33.1 ; Trichotillomania F63.3 and Generalized social phobia F40.11 [place] [address] [place] [address] Apr, [place] [id number] [place] [address] Apr, Hyperlipidemia, mixed E78.2 ; Morbid (severe) obesity due to excess calories E66.01 ; Chronic post-traumatic stress disorder (PTSD) F43.12 ; Moderate episode of recurrent major depressive disorder F33.1 ; Trichotillomania F63.3 and Generalized social phobia F40.11 [place] [id number] [place] [address] Apr, Trichotillomania F63.3 ; Generalized social phobia F40.11 ; Chronic post-traumatic stress disorder (PTSD) F43.12 and Moderate episode of recurrent major depressive disorder F33.1 [place] [id number] [place] [address] Apr, [place] [id number] [place] [address] Apr, [place] [id number] [place] [address] Mar, Moderate episode of recurrent major depressive disorder F33.1 ; Trichotillomania F63.3 ; Chronic post-traumatic stress disorder (PTSD) F43.12 ; Generalized social phobia F40.11 and Restless leg syndrome G25.81 [place] [id number] [place] [address] Mar, [place] [id number] [place] [address] Mar, [place] [id number] [place] [address] Feb, Left kidney mass N28.89 [place] [id number] [place] [address] Jan, [place] [address] [place] [address] [address] Dec, Polydipsia R63.1 ; Chronic pancreatitis K86.1 and Fatigue, unspecified type R53.83 [facility] [address] [place] [address] Nov, [facility] [id number] [place] [address] Nov, [facility] [id number] [place] [address] Nov, Headache around the eyes R51 [facility] [id number] [place] [address] Nov, [facility] [id number] [place] [address] October, STD exposure Z20.2 [facility] [id number] [place] [address] October, STD exposure Z20.2 [facility] [id number] [place] [address] October, Chronic post-traumatic stress disorder (PTSD) F43.12 ; Generalized social phobia F40.11 ; Trichotillomania F63.3 and Restless leg syndrome G25.81 [facility] [address] [address] October, [facility] [address] [place] [address] Sep, [facility] [address] [address] Aug, [facility] [id number] [place] [address] Aug, [facility] [address] [address] Aug, Neck mass R22.1 [facility] [id number] [place] [address] 03 Aug, 2016 Atelectasis J98.11 [place] [address] [address] 28 Jul, 2016 Hyperlipidemia, mixed E78.2 ; Atypical pneumonia J18.9 and Neck mass R22.[address] [address] 15 Jul, 2016 Hemoptysis R04.2 [place] [address] [address] 08 Jul, 2016 Acute non-recurrent pansinusitis J01.40 ; Hemoptysis R04.2 ; Polydipsia R63.1 and Malaise R53.81 [facility] [address] [address] May, Other viral agents as the cause of diseases classified elsewhere B97.89 and Acute upper respiratory infection, unspecified J06.9 [facility] [address] [address] Mar, Nausea R11.0 [facility] [address] [address] 28 Dec, 2015 Hives L50.9 [place] [id number] [place] [address] 14 Dec, 2015 [facility] [place] [id number] [place] [address] 10 Dec, 2015 Cutaneous abscess of limb, unspecified L02.419 ; Cellulitis of unspecified part of limb L03.119 ; Encounter for incision and drainage procedure Z01.89 and Encounter for recheck of abscess following incision and drainage Z09 [facility] [place] [id number] [place] [id number] 09 Dec, 2015 Abscess of leg, right L02.[address] [place] [address] Dec, Cellulitis of unspecified part of limb L03.119 and Cutaneous abscess of limb, unspecified L02.419 [place] [id number] [place] [address] Dec, [place] [id number] [place] [address] Dec, [facility] [id number] [place] [address] Aug, [place] [id number] [place] [address] Aug, [facility] [place] [id number] [place] [address] Jul, Pain in unspecified wrist M25.539 and Back pain, thoracic M54.6 [facility] [place] [id number] [place] [address] Jun, Strain of right wrist, initial encounter S66.911[address] [place] [address] [address] Jun, Chronic pancreatitis, unspecified pancreatitis type K86.1 ; Hirsuties L68.0 ; Morbid (severe) obesity due to excess calories E66.01 ; Chronic pancreatitis K86.1 and Asthma J45.909 [place] [id number] [place] [address] May, [place] [id number] [place] [address] May, Hyperlipidemia, mixed E78.2 and Muscle spasm of back M62.830 [place] [id number] [place] [address] Apr, [place] [id number] [place] [address] Apr, Torticollis M43.6 [facility] [id number] [place] [address] Apr, Right-sided thoracic back pain M54.6 [facility] [id number] [place] [address] Mar, Rash R21 [facility] [facility] [id number] [place] [address] Mar, [facility] [id number] [place] [address] Jan, [facility] [id number] [place] [address] Dec, [facility] [id number] [place] [address] Dec, Urinary frequency 788.41 and Nocturia more than twice per night 788.43 [facility] [id number] [place] [address] Nov, [facility] [id number] [place] [address] Nov, [facility] [id number] [place] [address] Nov, Abdominal pain 789.00 [facility] [id number] [place] [address] October, TDAP DX V06.1 [facility] [id number] [place] [address] October, [facility] [id number] [place] [address] October, Disturbance of skin sensation 782.0 ; Wrist pain, right 719.43 ; Hyperlipidemia 272.4 and Skin lesion of face 709.9 [facility] [id number] [place] [address] Sep, [facility] [address] [id number] [address] 13 Sep, 2014 [facility] [address] [id number] [place] [address] 26 Aug, 2014 [facility] [place] [facility] [address] [id number] [place] [address] 26 Aug, 2014 [facility] [place] [facility] [address] [id number] [place] [address] 23 Aug, 2014 [facility] [place] [facility] [address] [id number] [place] [address] 23 Aug, 2014 [facility] [place] [facility] [address] [id number] [place] [address] 16 Aug, 2014 [facility] [place] [facility] [address] [id number] [place] [address] 16 Aug, 2014 [facility] [place] [facility] [address] [id number] [place] [address] 14 Aug, 2014 [facility] [address] [id number] [place] [address] 14 Aug, 2014 [facility] [place] [facility] [address] [id number] [place] [address] Aug, [facility] [place] [facility] [address] [id number] [place] [address] Aug, [facility] [place] [facility] [address] [id number] [place] [address] 04 Aug, 2014 [facility] [place] [facility] [address] [id number] [place] [address] 04 Aug, 2014 [facility] [place] [facility] [address] [id number] [place] [address] Aug, [facility] [place] [facility] [address] [id number] [place] [address] Aug, [facility] [place] [facility] [address] [id number] [place] [address] Jul, [facility] [place] [facility] [address] [id number] [place] [address] Jul, [facility] [place] [facility] [address] [id number] [place] [address] Jul, [facility] [place] [facility] [address] [id number] [place] [address] Jul, [facility] [place] [facility] [address] [id number] [place] [address] Jul, [facility] [place] [facility] [address] [id number] [place] [address] Jul, [facility] [place] [facility] [address] [id number] [place] [address] Jun, [facility] [place] [facility] [address] [id number] [place] [address] Jun, [facility] [place] [facility] [address] [id number] [place] [address] Jun, [facility] [place] [facility] [address] [id number] [place] [address] Jun, [facility] [place] [facility] [address] [id number] [place] [address] Jun, [facility] [place] [facility] [address] [id number] [place] [address] Jun, [facility] [place] [facility] [address] [id number], [place] [address] Jun, [facility] [place] [facility] [address] [id number] [place] [address] Jun, [facility] [place] [facility] [address] [id number] [place] [address] May, [facility] [place] [facility] [address] [id number] [place] [address] May, [facility] [place] [facility] [address] [id number] [place] [address] May, [facility] [address] [id number] [place] [address] May, [facility] [place] [facility] [address] [id number] [place] [address] May, [facility] [place] [facility] [address] [id number] [place] [address] May, [facility] [place] [facility] [address] [id number] [place] [address] May, [facility] [place] [facility] [address] [id number] [place] [address] May, [facility] [place] [facility] [address] [id number] [place] [address] May, [facility] [place] [facility] [address] [id number] [place] [address] May, [facility] [place] [facility] [address] [id number] [place] [address] May, [facility] [place] [facility] [address] [id number] [place] [address] May, [facility] [place] [facility] [address] [id number] [place] [address] Apr, [facility] [place] [facility] [address] [id number] [place] [address] Apr, [facility] [place] [facility] [address] [id number] [place] [address] Apr, [facility] [place] [facility] [address] [id number] [place] [address] Apr, [facility] [place] [facility] [address] [id number] [place] [address] Apr, [facility] [place] [facility] [address] [id number] [place] [address] Apr, [facility] [place] [facility] [address] [id number] [place] [address] 14 Apr, 2014 [facility] [place] [facility] [address] [id number] [place] [address] 14 Apr, 2014 [facility] [place] [facility] [address] [id number] [place] [address] Apr, [facility] [place] [facility] [address] [id number] [place] [address] Apr, [facility] [place] [facility] [address] [id number] [place] [address] Apr, [facility] [place] [facility] [address] [id number] [place] [address] Apr, [facility] [place] [facility] [address] [id number] [place] [address] 14 Mar, 2014 [facility] [place] [facility] [address] [id number] [place] [address] Mar, [facility] [place] [facility] [address] [id number] [place] [address] Mar, [facility] [place] [facility] [address] [id number], [place] [address] Mar, [facility] [place] [facility] [address] [facility] [id number], [place] [address] 10 Feb, 2014 [facility] [place] [facility] [address] [id number], [place] [address] Feb, [facility] [place] [facility] [address] [id number] [place] [address] 05 Feb, 2014 [facility] [place] [facility] [address] [id number] [place] [address] 05 Feb, 2014 [facility] [place] [facility] [address] [id number], [place] [address] 05 Feb, 2014 [facility] [place] [facility] [address] [id number], [place] [address] Feb, [facility] [place] [facility] [address] [id number] [place] [address] Jan, [facility] [place] [facility] [address] [id number] [place] [address] Jan, [facility] [place] [facility] [address] [id number] [place] [address] Jan, [facility] [place] [facility] [address] [id number] [place] [address] Jan, [facility] [place] [facility] [address] [id number] [place] [address] Jan, [facility] [place] [facility] [address] [id number] [place] [address] Jan, [facility] [place] [facility] [address] [id number] [place] [address] Jan, [facility] [place] [facility] [address] [id number] [place] [address] Jan, [facility] [place] [facility] [address] [id number] [place] [address] Jan, [facility] [place] [facility] [address] [id number] [place] [address] Jan, [facility] [place] [facility] [address] [id number] [place] [address] Jan, [facility] [place] [facility] [address] [id number] [place] [address] Jan, [facility] [place] [facility] [address] [id number] [place] [address] Jan, [facility] [place] [facility] [address] [id number] [place] [address] Jan, [facility] [place] [facility] [address] [id number] [place] [address] Dec, [facility] [place] [facility] [address] [id number] [place] [address] Dec, [facility] [place] [facility] [address] [id number] [place] [address] Dec, [facility] [place] [facility] [address] [id number] [place] [address] Dec, [facility] [place] [facility] [address] [id number] [place] [address] Nov, [facility] [place] [facility] [address] [id number] [place] [address] Nov, [facility] [place] [facility] [address] [id number] [place] [address] Nov, [facility] [place] [facility] [address] [id number] [place] [address] Nov, [facility] [place] [facility] [address] [id number] [place] [address] Nov, [facility] [place] [facility] [address] [id number] [place] [address] October, [facility] [place] [facility] [address] [id number] [place] [address] October, [facility] [place] [facility] [address] [id number] [place] [address] October, [facility] [place] [facility] [address] [id number] [place] [address] October, [facility] [place] [facility] [address] [id number] [place] [address] October, [facility] [place] [facility] [address] [id number] [place] [address] October, [facility] [place] [facility] [address] [id number] [place] [address] October, [facility] [place] [facility] [address] [id number] [place] [address] October, [facility] [place] [facility] [address] [id number] [place] [address] October, [facility] [place] [facility] [address] [id number] [place] [address] October, [facility] [place] [facility] [address] [id number] [place] [address] October, [facility] [place] [facility] [address] [id number] [place] [address] October, [facility] [place] [facility] [address] [id number] [place] [address] October, [facility] [place] [facility] [address] [id number] [place] [address] October, [facility] [place] [facility] [address] [id number] [place] [address] Sep, [facility] [place] [facility] [address] [id number] [place] [address] Sep, [facility] [place] [facility] [address] [id number] [place] [address] Sep, [facility] [place] [facility] [address] [id number] [place] [address] Sep, [facility] [place] [facility] [address] [id number] [place] [address] Sep, [facility] [place] [facility] [address] [id number] [place] [address] Sep, [facility] [place] [facility] [address] [id number] [place] [address] Sep, [facility] [place] [facility] [address] [id number] [place] [address] Sep, [facility] [place] [facility] [address] [id number] [place] [address] Sep, [facility] [place] [facility] [address] [id number] [place] [address] Sep, [facility] [place] [facility] [address] [id number] [place] [address] Sep, [facility] [place] [facility] [address] [id number] [place] [address] Sep, [facility] [place] [facility] [address] [id number] [place] [address] Sep, [facility] [place] [facility] [address] [id number] [place] [address] Sep, [facility] [place] [facility] [address] [id number] [place] [address] Sep, [facility] [place] [facility] [address] [id number] [place] [address] Aug, [facility] [place] [facility] [address] [id number] [place] [address] Aug, [facility] [place] [facility] [address] [id number] [place] [address] Aug, [facility] [place] [facility] [address] [id number] [place] [address] Aug, [facility] [place] [facility] [address] [facility] [id number] [place] [address] Jul, [facility] [place] [facility] [address] [id number] [place] [address] Jul, [facility] [place] [facility] [address] [id number] [place] [address] Jul, [facility] [place] [facility] [address] [id number] [place] [address] Jul, [facility] [place] [facility] [address] [id number] [place] [address] Jun, [facility] [place] [facility] [address] [id number] [place] [address] Jun, [facility] [address] [id number] [place] [address] 15 Jun, 2013 [facility] [address] [id number] [place] [address] 15 Jun, 2013 [facility] [address] [id number] [place] [address] Jun, [facility] [address] [id number] [place] [address] Jun, [facility] [address] [id number] [place] [address] Jun, [facility] [address] [id number] [place] [address] Jun, [facility] [address] [id number] [place] [address] 20 May, 2013 [facility] [address] [id number] [place] [address] 20 May, 2013 [facility] [address] [id number] [place] [address] 18 May, 2013 [facility] [address] [id number] [place] [address] 18 May, 2013 [facility] [address] [id number] [place] [address] 17 May, 2013 [facility] [address] [id number] [id number] 17 May, 2013 [facility] [place] [facility] [address] [id number] [place] [address] 17 May, 2013 [facility] [place] [facility] [address] [id number] [place] [address] 17 May, 2013 [facility] [place] [facility] [address] [id number] [place] [address] 16 May, 2013 [facility] [address] [id number] [place] [address] 16 May, 2013 [facility] [address] [id number] [place] [address] 14 May, 2013 [facility] [place] [facility] [address] [id number] [place] [address] 14 May, 2013 [facility] [place] [facility] [address] [id number] [place] [address] 13 May, 2013 [facility] [place] [facility] [address] [id number] [place] [address] 13 May, 2013 [facility] [place] [facility] [address] [id number] [place] [address] 12 May, 2013 [facility] [place] [facility] [address] [id number] [place] [address] 12 May, 2013 [facility] [address] [id number] [place] [address] 11 May, 2013 [facility] [place] [facility] [address] [id number] [place] [address] May, [facility] [place] [facility] [address] [id number] [place] [address] Apr, [facility] [place] [facility] [address] [id number] [place] [address] Apr, [facility] [place] [facility] [address] [id number], [place] [address] Apr, [facility] [place] [facility] [address] [id number] [place] [address] Apr, [facility] [place] [facility] [address] [id number] [place] [address] 27 Aug, 2012 [facility] [place] [facility] [address] [id number] [place] [address] 18 Aug, 2012 [facility] [place] [facility] [address] [id number] [place] [address] 06 Aug, 2012 [facility] [place] [facility] [address] [id number] [place] [address] Aug, [facility] [address] [id number] [place] [address] Jul, [facility] [address] [id number] [place] [address] Jun, [facility] [address] [id number] [place] [address] Jun, [facility] [address] [id number] [place] [address] Jun, [facility] [address] [id number] [place] [address] Jun, [facility] [address] [id number] [place] [address] May, [facility] [address] [id number] [place] [address] May, [facility] [address] [id number] [place] [address] May, [facility] [address] [id number] [place] [address] May, [facility] [address] [id number] [place] [address] May, [facility] [address] [id number] [place] [address] May, [facility] [address] [id number] [place] [address] May, [facility] [place] [facility] [address] [id number] [place] [address] Apr, [facility] [address] [id number] [place] [address] Apr, [facility] [address] [id number] [place] [address] Apr, [facility] [place] [facility] [address] [id number] [place] [address] Apr, [facility] [place] [facility] [address] [id number] [place] [address] Apr, [facility] [place] [facility] [address] [id number] [place] [address] Apr, [facility] [place] [facility] [address] [id number], [place] [address] Apr, [facility] [place] [facility] [address] [id number] [place] [address] Mar, [facility] [place] [facility] [address] [id number], [place] [address] Mar, [facility] [place] [facility] [address] [id number] [place] [address] Mar, [facility] [place] [facility] [address] [id number], [place] [address] Mar, [facility] [place] [facility] [address] [id number], [place] [address] Mar, [facility] [place] [facility] [address] [id number], [place] [address] Mar, [facility] [place] [facility] [address] [id number], [place] [address] Mar, [facility] [place] [facility] [address] [id number], [place] [address] Mar, [facility] [place] [facility] [address] [id number], [place] [address] 15 Mar, 2012 [facility] [place] [facility] [address] [id number], [place] [address] Mar, [facility] [place] [facility] [address] [facility] [id number], [place] [address] Mar, [facility] [place] [facility] [address] [id number] [place] [address] Mar, [facility] [place] [facility] [address] [id number] [place] [address] Feb, [facility] [place] [facility] [address] [id number] [place] [address] Jan, [facility] [place] [facility] [address] [id number] [place] [address] Jan, [facility] [place] [facility] [address] [id number] [place] [address] Jan, [facility] [place] [facility] [address] [id number] [place] [address] Jan, [facility] [place] [facility] [address] [id number] [place] [address] Jan, [facility] [place] [facility] [address] [id number] [place] [address] Dec, [facility] [place] [facility] [address] [id number] [place] [address] Dec, [facility] [place] [facility] [address] [id number] [place] [address] Nov, [facility] [place] [facility] [address] [id number] [place] [address] Nov, [facility] [place] [facility] [address] [id number] [place] [address] Nov, [facility] [place] [facility] [address] [id number] [place] [address] October, [facility] [place] [facility] [address] [id number] [place] [address] October, [facility] [place] [facility] [address] [id number] [place] [address] October, [facility] [place] [facility] [address] [id number] [place] [address] October, [facility] [place] [facility] [address] [id number] [place] [address] 16 Oct, 2011 [facility] [address] [id number] [place] [address] October, [facility] [place] [facility] [address] [id number] [place] [address] October, [facility] [address] [id number] [place] [address] Sep, [facility] [address] [id number] [place] [address] Sep, [facility] [place] [facility] [address] [id number] [place] [address] Sep, [facility] [address] [id number] [place] [address] 25 Sep, 2011 [facility] [address] [id number] [place] [address] 24 Sep, 2011 [facility] [address] [id number] [place] [address] 19 Sep, 2011 [facility] [address] [id number] [place] [address] 17 Sep, [address] [facility] [place] [facility] [address] [id number] [place] [address] 16 Sep, 2011 [facility] [place] [facility] [address] [id number] [place] [address] 16 Sep, 2011 [facility] [place] [facility] [address] [id number] [place] [address] 14 Sep, 2011 [facility] [place] [facility] [address] [id number] [place] [address] [address] [facility] [place] [facility] [address] [id number] [place] [address] 10 Sep, 2011 [facility] [place] [facility] [address] [id number] [place] [address] Sep, [facility] [address] [id number] [place] [address] Aug, [facility] [place] [facility] [address] [id number] [place] [address] Aug, [facility] [address] [facility] [id number] [place] [address] 08 Aug, 2011 [facility] [place] [facility] [address] [id number] [place] [address] 06 Aug, 2011 [facility] [address] [id number] [place] [address] 28 Jul, 2011 [facility] [place] [facility] [address] [facility] [id number] [place] [address] 22 Jul, 2011 [facility] [address] [facility] [id number] [place] [address] 16 Jul, 2011 [facility] [place] [facility] [address] [id number] [place] [address] 15 Jul, 2011 [facility] [address] [facility] [id number] [place] [address] 14 Jul, 2011 [facility] [address] [facility] [id number] [place] [address] 10 Jul, 2011 [facility] [address] [facility] [id number] [place] [address] Jun, [facility] [place] [facility] [address] [id number] [place] [address] Jun, [facility] [place] [facility] [address] [id number] [place] [address] Jun, [facility] [place] [facility] [address] [facility] [id number] [place] [address] Jun, [facility] [place] [facility] [address] [facility] [id number] [place] [address] Jun, [facility] [place] [facility] [address] [id number] [place] [address] 27 May, 2011 [facility] [place] [facility] [address] [id number] [place] [address] May, [facility] [place] [facility] [address] [id number] [place] [address] 14 May, 2011 [facility] [place] [facility] [address] [id number] [place] [address] 14 May, 2011 [facility] [place] [facility] [address] [id number] [place] [address] 12 May, 2011 [facility] [place] [facility] [address] [id number] [place] [address] 07 May, 2011 [facility] [place] [facility] [address] [id number] [place] [address] 05 May, 2011 [facility] [place] [facility] [address] [id number] [place] [address] 15 Apr, 2011 [facility] [place] [facility] [address] [id number] [place] [address] 15 Apr, 2011 [facility] [place] [facility] [address] [id number] [place] [address] 07 Apr, 2011 [facility] [place] [facility] [address] [id number] [place] [address] Apr, [facility] [place] [facility] [address] [id number] [place] [address] 04 Apr, 2011 [facility] [place] [facility] [address] [id number] [place] [address] Apr, [facility] [place] [facility] [address] [id number] [place] [id number] 28 Mar, 2011 [facility] [place] [facility] [address] [id number] [place] [address] Mar, [facility] [place] [facility] [address] [id number] [place] [address] Mar, [facility] [address] [id number] [place] [address] Mar, [facility] [place] [facility] [address] [id number] [place] [address] Jan, [facility] [place] [facility] [address] [id number] [place] [address] Dec, [facility] [place] [facility] [address] [id number] [place] [address] Dec, [facility] [place] [facility] [address] [id number] [place] [address] October, [facility] [place] [facility] [address] [id number] [place] [address] Sep, [facility] [place] [facility] [address] [id number] [place] [address] Sep, [facility] [place] [facility] [address] [id number] [place] [address] Jul, [facility] [place] [facility] [address] [id number] [place] [address] Jul, [facility] [place] [facility] [address] [id number] [place] [address] May, [facility] [place] [facility] [address] [id number] [place] [address] May, [facility] [place] [facility] [address] [id number] [place] [address] May, [facility] [place] [facility] [address] [id number] [place] [address] May, [facility] [place] [facility] [address] [id number] [place] [address] Apr, [facility] [place] [facility] [address] [id number] [place] [address] Apr, [facility] [place] [facility] [address] [id number] [place] [address] 18 Apr, 2010 [facility] [address] [id number] [place] [address] 18 Apr, 2010 [facility] [place] [facility] [address] [id number] [place] [address] Apr, [facility] [address] [id number] [place] [address] 21 Mar, 2010 [facility] [place] [facility] [address] [id number] [place] [address] 14 Mar, 2010 [facility] [address] [id number] [place] [address], [place] [address] 13 Mar, 2010 [facility] [address] [id number] [place] [address] 12 Mar, 2010 [facility] [address] [id number] [place] [address] Jan, [facility] [address] [id number] [place] [address] 15 Dec, 2009 [facility] [address] [id number] [place] [address] 10 Sep, 2009 [facility] [address] [facility] [id number] [place] [address] 08 May, 2009 [facility] [place] [facility] [address] [id number] [place] [address] 06 May, 2009 [facility] [place] [facility] [address] [id number] [place] [address] 02 May, 2009 [facility] [place] [facility] [address] [id number] [place] [address] 17 Apr, 2009 [facility] [place] [facility] [address] [id number] [place] [address] 17 Apr, 2009 [facility] [place] [facility] [address] [id number] [place] [address] Apr, [facility] [address] [facility] [id number], [place] [address] Apr, [facility] [address] [id number], [place] [address] Apr, [facility] [address] [facility] [id number], [place] [address] Mar, [facility] [address] [id number], [place] [address] Mar, [facility] [address] [facility] [id number], [place] [address] Jul, IMMUNIZATIONS No Known Immunizations SOCIAL HISTORY Never Assessed [place] [place] VITAL SIGNS MEDICATIONS Unknown [...] the January before. 03/2018 Hospitalization History Cellulitis-[facility]ia [facility] 12/20/15 Hospitalization History [facility] [place]- Abd pain 03/07/2017 Hospitalization History [facility] [place]- Abd pain 03/14/2017 Hospitalization History [facility] [place]- No bowel movement, rash 04/13/2017 Hospitalization History [facility] [place]- Abd pain r/t kidney surgery on 04/10/17 04/17/2017 Hospitalization History [facility] [place]- Abd pain r/t kidney surgery on 04/10/17 04/18/2017 Hospitalization History [facility] [place]- Lower abd pain 04/30/[address] [facility]- Cannot urinate 05/30/[address] [facility]- Pancreatitis Sx 06/29/2017 Hospitalization History [facility] [place]- Stomach pain 07/22/[address] [facility]- Left side pain 08/12/[address] [facility]- Incision site infection 08/30/2017 Hospitalization History [facility]- Post Op Seroma/Hematoma Left Abdomen. Discharged 09/04/17- Dr Daniel 09/02/[address] [facility]- Right shoulder and back pain 10/22/[address] [facility]- Shoulder/Back pain 11/11/2017 Hospitalization History [facility] [place]- Right shoulder blade pain 12/04/[address] [facility]- C-Diff 12/13/2017 Hospitalization History C diff et MRSA 12/27/2017
[2018-11-15 14:27] LABS: BASOPHILS % (AUTO) 0 % (0-10); EOSINOPHILS # (AUTO) 0.5 10^3/uL (0.0-0.3); EOSINOPHILS % (AUTO) 6 % (0-10); HEMATOCRIT 36 % (35-52); HEMOGLOBIN 11.7 G/DL (11.5-16.0); LYMPHOCYTES # (AUTO) 2.5 X 10^3 (1.0-4.0); LYMPHOCYTES % (AUTO) 32 % (12-44); MEAN CORPUSCULAR HEMOGLOBIN 27 PG (25-34); MEAN CORPUSCULAR HGB CONC 32 G/DL (32-36); MEAN CORPUSCULAR VOLUME 83 FL (80-99); MEAN PLATELET VOLUME 9.6 FL (7.4-10.4); MONOCYTES # (AUTO) 0.4 X 10^3 (0.0-1.0); MONOCYTES % (AUTO) 5 % (0-12); NEUTROPHILS # (AUTO) 4.4 X 10^3 (1.8-7.8); NEUTROPHILS % (AUTO) 57 % (42-75); PLATELET COUNT 290 10^3/uL (130-400); RED CELL DISTRIBUTION WIDTH 13.5 % (10.0-14.5); WHITE BLOOD COUNT 7.8 10^3/uL (4.3-11.0)
[2018-11-15] MEDS ORDERED: PROMETHAZINE INJ 25 MG/ML (PHENERGAN) AMP IVP ONE (14:30)
[2018-11-15] MEDS ORDERED: NS IV 1000 ML 1,000 ML IV SCH (14:30)
[2018-11-15 14:35] LABS: BILIRUBIN,URINE NEGATIVE (NEGATIVE); CLARITY,URINE VERY CLOUDY; COLOR,URINE YELLOW; GLUCOSE, URINE (UA) NEGATIVE (NEGATIVE); KETONES,URINE NEGATIVE (NEGATIVE); LEUKOCYTE ESTERASE ,URINE NEGATIVE (NEGATIVE); NITRITE,URINE NEGATIVE (NEGATIVE); PH,URINE 5 (5-9); PROTEIN,URINE NEGATIVE (NEGATIVE); UROBILINOGEN,URINE NORMAL (NORMAL)
[2018-11-15 14:45] LABS: ALANINE AMINOTRANSFERASE 26 U/L (0-55); ALBUMIN 4.3 GM/DL (3.2-4.5); ALKALINE PHOSPHATASE 67 U/L (40-136); AMYLASE 52 U/L (25-125); BILIRUBIN,TOTAL 0.3 MG/DL (0.1-1.0); BUN/CREATININE RATIO 14; CALCIUM 9.7 MG/DL (8.5-10.1); CARBON DIOXIDE 22 MMOL/L (21-32); CHLORIDE 108 MMOL/L (98-107); CREATININE SERUM 0.99 MG/DL (0.60-1.30); GFR ESTIMATED > 60; GLUCOSE 97 MG/DL (70-105); LIPASE 48 U/L (8-78); POTASSIUM 3.9 MMOL/L (3.6-5.0); SODIUM 140 MMOL/L (135-145); TOTAL PROTEIN 7.6 GM/DL (6.4-8.2)
[2018-11-15 14:57] LABS: BACTERIA,URINE LARGE /HPF
--- OUTSIDE RECORDS SUMMARY | 2018-11-15 15:09 | XMS REPORT ---
Author Author Migration, Doctor Organization [facility] Address Unknown Phone Unavailable Care Team Providers Care Eligibility And Occupancy Interviewer Name Role Phone Migration, Doctor Unavailable Unavailable PROBLEMS Type Condition ICD9-CM Code KDU34-RU Code Onset Dates Condition Status SNOMED Code Problem Morbid (severe) obesity due to excess calories E66.01 Active 197707258 Problem Chronic tension-type headache, intractable G44.221 Active 786280479 Problem Hirsuties L68.0 Active 490134159 Problem Hyperlipidemia, mixed E78.2 Active 818765996 Problem Chronic pancreatitis K86.1 Active 230619174 Problem FH: polycystic ovary Z84.2 Active 523977556 Problem Polydipsia R63.1 Active 63147589 Problem Asthma J45.909 Active 233436827 Problem Restless leg syndrome G25.81 Active 25824190 Problem Generalized social phobia F40.11 Active 25232577 Problem Chronic post-traumatic stress disorder (PTSD) F43.12 Active 678577148 Problem Obesities, morbid E66.01 Active 974834541 Problem Trichotillomania F63.3 Active 73634566 Problem Nodule of left lung R91.1 Active 342103754 Problem Menopausal symptoms N95.1 Active 79952599 Problem Atelectasis J98.11 Active 20646994 Problem History of renal cell carcinoma Z85.528 Active 657158650 Problem Right carpal tunnel syndrome G56.01 Active 881227303600819 Problem Moderate episode of recurrent major depressive disorder F33.1 Active 947405249 Problem Chronic fatigue R53.82 Active 04221050 Problem Intestinal malabsorption, unspecified K90.9 Active 55041178 Problem Primary osteoarthritis of right knee M17.11 Active [id number] ALLERGIES No Information ENCOUNTERS Encounter Location Date Diagnosis [facility] [address] [facility] [id number] [address] Nov, [facility] [address] [facility] [id number] [address] Nov, [facility] [address] [facility] [id number] [address] October, [facility] [address] [address] October, [facility] ELTON GARCÍA [address] [address] October, [facility] [address] [address] October, [facility] [address] [address] October, [facility] [address] [address] October, Morbid obesity E66.01 ; Routine gynecological examination Z01.419 and Menopausal symptoms N95.1 [facility] [address] [address] October, [facility] ELTON GARCÍA [address] [address] Sep, [facility] [address] [address] Sep, [facility] [address] [address] Sep, [facility] [address] [address] Sep, [facility] [address] [address] Sep, Lower extremity edema R60.0 [facility] [address] [address] Sep, [facility] [address] [address] Sep, Lower extremity edema R60.0 and Morbid obesity E66.01 [facility] [address] [address] Sep, [facility] [address] [facility] [id number] [address] Sep, [facility] [address] [facility] [id number] [address] Aug, [facility] [id number] [address] Aug, Obesities, morbid E66.01 and Morbid obesity E66.01 [facility] [address] [facility] [id number] [address] Aug, [address] [address] Jul, [facility] [address] [address] Jul, [facility] [address] [address] Jul, [facility] [address] [address] Jul, [facility] [address] [address] Jul, Numbness of right hand R20.0 [facility] [address] [address] Jul, Numbness of right hand R20.0 [facility] [address] [address] Jul, [facility] [address] [address] Jul, [facility] [address] [address] Jul, Right-sided thoracic back pain M54.6 [facility] [address] [address] Jul, [facility] [address] [address] Jul, [facility] [address] [address] [id number] [place] [address] Jul, [facility] [address] [address] Jul, [facility] [id number] [place] [address] Jun, [facility] [address] [place] [address] Jun, Acute pain of right shoulder M25.511 ; Numbness of right hand R20.0 and Trapezius muscle spasm M62.838 [place] [id number] [place] [address] Jun, [place] [address] [address] [id number] [place] [address] Jun, [place] [id number] [place] [address] Jun, Cough R05 ; BMI 50.0-59.9, adult Z68.43 and Morbid obesity E66.01 [place] [address] [address] Jun, [facility] [id number] [place] [address] Jun, [facility] [address] [place] [address] 13 Jun, 2018 BMI 45.0-49.9, adult Z68.42 and Acute non-recurrent maxillary sinusitis J01.00 [facility] [address] [address] 09 Jun, 2018 Acute sinusitis J01.90 ; Dysuria R30.0 and BMI 45.0-49.9, adult Z68.42 [facility] [address] [address] Jun, [facility] [id number] [place] [address] Jun, [facility] [id number] [place] [address] May, [facility] [address] [address] May, [facility] [id number] [place] [address] May, [place] [id number] [place] [address] May, [place] [id number] [place] [address] May, [facility] [id number] [place] [address] Apr, Generalized social phobia F40.11 ; Trichotillomania F63.3 ; Chronic post-traumatic stress disorder (PTSD) F43.12 and BMI 45.0-49.9, adult Z68.42 [place] [id number] [place] [address] Apr, [place] [id number] [place] [address] Apr, Chronic tension-type headache, intractable G44.221 [facility] [id number] [place] [address] Apr, [facility] [id number] [place] [address] Mar, [facility] [address] [id number] [place] [address] Mar, BMI 45.0-49.9, adult Z68.42 and Pimples R23.8 [place] [id number] [place] [address] Mar, [facility] [id number] [place] [address] Mar, [facility] [id number] [place] [address] Mar, Decreased urination R34 ; Chronic fatigue R53.82 ; Peripheral edema R60.9 ; Diarrhea, unspecified type R19.7 ; Non-intractable vomiting with nausea, unspecified vomiting type R11.2 ; BMI 45.0-49.9, adult Z68.42 and Chronic post-traumatic stress disorder (PTSD) F43.12 [place] [id number] [place] [address] Mar, Intestinal malabsorption, unspecified K90.9 ; Diarrhea, unspecified R19.7 ; Urinary urgency R39.15 ; Rectal bleeding K62.5 and Decreased urine output R34 [place] [id number] [place] [address] Mar, Decreased urine output R34 [place] [id number] [place] [address] Mar, Rectal bleeding K62.5 [place] [id number] [place] [address] Mar, Rectal bleeding K62.5 [place] [id number] [place] [address] Mar, Urinary urgency R39.15 [place] [id number] [place] [address] Mar, Urinary urgency R39.15 [place] [id number] [place] [address] Mar, Primary osteoarthritis of right knee M17.11 and BMI 45.0-49.9, adult Z68.42 [place] [id number] [place] [address] Mar, [facility] [address] [address] Feb, Left upper arm pain M79.622 [facility] [id number] [place] [address] Feb, [facility] [id number] [place] [address] Jan, Acute pain of right knee M25.561 ; Right upper quadrant abdominal pain R10.11 and BMI 45.0-49.9, adult Z68.42 [facility] [id number] [place] [address] Jan, [facility] [id number] [place] [address] Jan, [facility] [id number] [place] [address] Dec, [facility] [id number] [place] [address] Dec, Intestinal malabsorption, unspecified K90.9 and Diarrhea, unspecified R19.7 [facility] [address] [address] Dec, [facility] [address] [place] [address] Dec, Strep throat J02.0 ; Intestinal malabsorption, unspecified K90.9 ; Diarrhea, unspecified R19.7 ; Postoperative seroma involving digestive system after non-digestive system procedure K91.873 ; Hyperlipidemia, mixed E78.2 and BMI 45.0-49.9, adult Z68.42 [facility] [id number] [place] [address] Dec, [facility] [id number] [place] [address] Dec, Nausea R11.0 [facility] [address] [address] Dec, [facility] [address] [address] Dec, Sore throat J02.9 ; Strep throat J02.0 and BMI 45.0-49.9, adult Z68.42 [facility] [address] [place] [address] Dec, [facility] [id number] [address] Dec, [facility] [id number] [place] [address] Dec, [facility] [id number] [place] [address] Dec, [facility] [id number] [place] [address] Dec, [facility] [address] [address] Dec, [facility] [id number] [place] [address] Dec, [facility] [address] [address] Dec, [facility] [address] [address] Dec, Clostridium difficile colitis A04.72 ; Intractable vomiting with nausea, unspecified vomiting type R11.2 and BMI 45.0-49.9, adult Z68.42 [facility] [address] [address] Dec, [facility] [address] [address] Nov, [facility] [id number] [place] [address] Nov, [place] [id number] [place] [address] Nov, [place] [id number] [place] [address] Nov, [facility] [place] [id number] [place] [address] Nov, [place] [address] [address] Nov, Hyperlipidemia, mixed E78.2 [facility] [place] [id number] [place] [address] Nov, Acute suppurative otitis media of right ear without spontaneous rupture of tympanic membrane, recurrence not specified H66.001 and BMI 45.0-49.9, adult Z68.42 [place] [id number] [place] [address] Nov, Hyperlipidemia, mixed E78.2 [place] [id number] [place] [address] Nov, [place] [id number] [place] [address] Nov, [place] [id number] [place] [address] Nov, Nodule of left lung R91.1 [place] [id number] [place] [address] Nov, Medicare annual wellness visit, initial Z00.00 [...] and Encounter for immunization Z23 [place] [id number] [place] [address] October, [facility] [id number] [place] [address] October, Nodule of left lung R91.1 [place] [address] [address] October, Nodule of left lung R91.1 [place] [id number] [place] [address] October, Recurrent major depressive disorder, in partial remission F33.41 ; Restless leg syndrome G25.81 ; Generalized social phobia F40.11 ; Chronic post-traumatic stress disorder (PTSD) F43.12 ; BMI 45.0-49.9, adult Z68.42 and Trichotillomania F63.3 [place] [address] [address] October, [place] [id number] [place] [address] Sep, Chronic fatigue R53.82 and BMI 45.0-49.9, adult Z68.42 [place] [id number] [place] [address] Aug, [place] [id number] [place] [address] Jul, Restless leg syndrome G25.81 and B12 deficiency E53.8 [place] [id number] [place] [address] Jul, [place] [id number] [place] [address] Jul, [place] [id number] [place] [address] Jun, [place] [address] [address] Jun, Fatigue, unspecified type R53.83 ; History of renal cell carcinoma Z85.528 ; Chronic pancreatitis K86.1 ; Restless leg syndrome G25.81 ; Dark urine R82.99 and BMI 45.0-49.9, adult Z68.42 [place] [id number] [place] [address] Jun, [place] [id number] [place] [address] Jun, [place] [id number] [place] [address] Jun, [place] [id number] [place] [address] Jun, [place] [id number] [place] [address] May, Chronic post-traumatic stress disorder (PTSD) F43.12 ; Moderate episode of recurrent major depressive disorder F33.1 ; Trichotillomania F63.3 and Generalized social phobia F40.11 [place] [address] [place] [address] May, [place] [address] [address] May, Chronic post-traumatic stress disorder (PTSD) F43.12 ; Moderate episode of recurrent major depressive disorder F33.1 ; Trichotillomania F63.3 and Generalized social phobia F40.11 [place] [address] [address] 07 May, 2017 Hyperlipidemia, mixed E78.2 ; Morbid (severe) obesity due to excess calories E66.01 ; Chronic post-traumatic stress disorder (PTSD) F43.12 ; Moderate episode of recurrent major depressive disorder F33.1 ; Trichotillomania F63.3 and Generalized social phobia F40.11 [place] [address] [place] [address] Apr, [place] [id number] [place] [address] Apr, Hyperlipidemia, mixed E78.2 ; Morbid (severe) obesity due to excess calories E66.01 ; Chronic post-traumatic stress disorder (PTSD) F43.12 ; Moderate episode of recurrent major depressive disorder F33.1 ; Trichotillomania F63.3 and Generalized social phobia F40.11 [place] [id number] [place] [address] Apr, Trichotillomania F63.3 ; Generalized social phobia F40.11 ; Chronic post-traumatic stress disorder (PTSD) F43.12 and Moderate episode of recurrent major depressive disorder F33.1 [place] [id number] [place] [address] Apr, [place] [id number] [place] [address] Apr, [place] [id number] [place] [address] Mar, Moderate episode of recurrent major depressive disorder F33.1 ; Trichotillomania F63.3 ; Chronic post-traumatic stress disorder (PTSD) F43.12 ; Generalized social phobia F40.11 and Restless leg syndrome G25.81 [place] [id number] [place] [address] Mar, [place] [id number] [place] [address] Mar, [place] [id number] [place] [address] Feb, Left kidney mass N28.89 [place] [id number] [place] [address] Jan, [place] [address] [place] [address] Dec, Polydipsia R63.1 ; Chronic pancreatitis K86.1 and Fatigue, unspecified type R53.83 [facility] [address] [place] [address] Nov, [facility] [id number] [place] [address] Nov, [facility] [id number] [place] [address] Nov, Headache around the eyes R51 [facility] [id number] [place] [address] Nov, [facility] [id number] [place] [address] October, STD exposure Z20.2 [facility] [id number] [place] [address] October, STD exposure Z20.2 [facility] [id number] [place] [address] October, Chronic post-traumatic stress disorder (PTSD) F43.12 ; Generalized social phobia F40.11 ; Trichotillomania F63.3 and Restless leg syndrome G25.81 [facility] [address] [address] October, [facility] [id number] [place] [address] Sep, [facility] [id number] [address] Aug, [facility] [id number] [place] [address] Aug, [facility] [id number] [address] Aug, Neck mass R22.1 [facility] [id number] [place] [address] 03 Aug, 2016 Atelectasis J98.11 [place] [address] [address] 28 Jul, 2016 Hyperlipidemia, mixed E78.2 ; Atypical pneumonia J18.9 and Neck mass R22.[address] [address] 15 Jul, 2016 Hemoptysis R04.2 [place] [address] [address] 08 Jul, 2016 Acute non-recurrent pansinusitis J01.40 ; Hemoptysis R04.2 ; Polydipsia R63.1 and Malaise R53.81 [facility] [address] [address] May, Other viral agents as the cause of diseases classified elsewhere B97.89 and Acute upper respiratory infection, unspecified J06.9 [facility] [address] [address] Mar, Nausea R11.0 [facility] [address] [address] 28 Dec, 2015 Hives L50.9 [place] [id number] [place] [address] 14 Dec, 2015 [facility] [place] [id number] [place] [phone] 10 Dec, 2015 Cutaneous abscess of limb, unspecified L02.419 ; Cellulitis of unspecified part of limb L03.119 ; Encounter for incision and drainage procedure Z01.89 and Encounter for recheck of abscess following incision and drainage Z09 [facility] [place] [id number] [place] [phone] 09 Dec, 2015 Abscess of leg, right L02.[address] [place] [address] Dec, Cellulitis of unspecified part of limb L03.119 and Cutaneous abscess of limb, unspecified L02.419 [place] [address] [place] [id number] [place] [phone] Dec, [place] [address] [place] [id number] [place] [phone] Dec, [facility] [address] [place] [id number] [place] [phone] Aug, [place] [address] [place] [id number] [place] [phone] Aug, [facility] [place] [address] [place] [id number] [place] [id number] Jul, Pain in unspecified wrist M25.539 and Back pain, thoracic M54.6 [facility] [place] [address] [id number] [place] [phone] Jun, Strain of right wrist, initial encounter S66.911A [place] [address] [address] Jun, Chronic pancreatitis, unspecified pancreatitis type K86.1 ; Hirsuties L68.0 ; Morbid (severe) obesity due to excess calories E66.01 ; Chronic pancreatitis K86.1 and Asthma J45.909 [place] [address] [place] [id number] [place] [phone] May, [place] [address] [place] [id number] [place] [phone] May, Hyperlipidemia, mixed E78.2 and Muscle spasm of back M62.830 [place] [address] [place] [id number] [place] [phone] Apr, [place] [address] [place] [id number] [place] [address] Apr, Torticollis M43.6 [facility] [address] [place] [id number] [place] [address] Apr, Right-sided thoracic back pain M54.6 [facility] [address] [place] [id number] [place] [phone] Mar, Rash R21 [facility] [address] [place] [id number] [place] [phone] Mar, [facility] [address] [place] [id number] [place] [phone] Jan, [facility] [id number] [place] [phone] Dec, [facility] [address] [place] [id number] [place] [address] Dec, Urinary frequency 788.41 and Nocturia more than twice per night 788.43 [facility] [address] [place] [id number] [place] [phone] Nov, [facility] [id number] [place] [phone] Nov, [facility] [address] [place] [id number] [place] [phone] Nov, Abdominal pain [address] [facility] [id number] [place] [address] October, TDAP DX V06.1 [facility] [id number] [place] [address] October, [facility] [id number] [place] [address] October, Disturbance of skin sensation 782.0 ; Wrist pain, right 719.43 ; Hyperlipidemia 272.4 and Skin lesion of face 709.9 [facility] [id number] [place] [address] Sep, [facility] [address] [id number] [place] [address] 13 Sep, 2014 [facility] [address] [id number] [place] [address] 26 Aug, 2014 [facility] [place] [facility] [address] [id number] [place] [address] 26 Aug, 2014 [facility] [place] [facility] [address] [id number] [place] [address] 23 Aug, 2014 [facility] [place] [facility] [address] [id number] [place] [address] 23 Aug, 2014 [facility] [place] [facility] [address] [id number] [place] [address] 16 Aug, 2014 [facility] [place] [facility] [address] [id number] [place] [address] 16 Aug, 2014 [facility] [place] [facility] [address] [id number] [place] [address] 14 Aug, 2014 [facility] [address] [id number] [place] [address] 14 Aug, 2014 [facility] [place] [facility] [address] [id number] [place] [address] Aug, [facility] [place] [facility] [address] [id number] [place] [address] Aug, [facility] [place] [facility] [address] [id number] [place] [address] 04 Aug, 2014 [facility] [place] [facility] [address] [id number] [place] [address] 04 Aug, 2014 [facility] [place] [facility] [address] [id number] [place] [address] Aug, [facility] [place] [facility] [address] [id number] [place] [address] Aug, [facility] [place] [facility] [address] [id number] [place] [address] Jul, [facility] [place] [facility] [address] [id number] [place] [address] Jul, [facility] [place] [facility] [address] [id number] [place] [address] Jul, [facility] [place] [facility] [address] [id number] [place] [address] Jul, [facility] [place] [facility] [address] [id number] [place] [address] Jul, [facility] [place] [facility] [address] [id number] [place] [address] Jul, [facility] [place] [facility] [address] [id number] [place] [address] Jun, [facility] [place] [facility] [address] [id number] [place] [address] Jun, [facility] [place] [facility] [address] [id number] [place] [address] Jun, [facility] [place] [facility] [address] [id number] [place] [address] Jun, [facility] [place] [facility] [address] [id number] [place] [address] Jun, [facility] [place] [facility] [address] [id number] [place] [address] Jun, [facility] [place] [facility] [address] [id number] [address] Jun, [facility] [place] [facility] [address] [id number] [place] [address] Jun, [facility] [place] [facility] [address] [id number] [place] [address] May, [facility] [place] [facility] [address] [id number] [place] [address] May, [facility] [place] [facility] [address] [id number] [place] [address] May, [facility] [address] [id number] [place] [address] May, [facility] [place] [facility] [address] [id number] [place] [address] May, [facility] [place] [facility] [address] [id number] [place] [address] May, [facility] [place] [facility] [address] [id number] [place] [address] May, [facility] [place] [facility] [address] [id number] [place] [address] May, [facility] [place] [facility] [address] [id number] [place] [address] May, [facility] [place] [facility] [address] [id number] [place] [address] May, [facility] [place] [facility] [address] [id number] [place] [address] May, [facility] [place] [facility] [address] [id number] [place] [address] May[facility] [place] [facility] [address] [id number] [place] [address] Apr, [facility] [place] [facility] [address] [id number] [place] [address] Apr, [facility] [place] [facility] [address] [id number] [place] [address] Apr, [facility] [place] [facility] [address] [id number] [place] [address] Apr, [facility] [place] [facility] [address] [id number] [place] [address] Apr, [facility] [place] [facility] [address] [id number] [place] [address] Apr, [facility] [place] [facility] [address] [id number] [place] [address] 14 Apr, 2014 [facility] [place] [facility] [address] [id number] [place] [address] 14 Apr, 2014 [facility] [place] [facility] [address] [id number] [place] [address] Apr, [facility] [place] [facility] [address] [id number] [place] [address] Apr, [facility] [place] [facility] [address] [id number] [place] [address] Apr, [facility] [place] [facility] [address] [id number] [place] [address] Apr, [facility] [place] [facility] [address] [id number] [place] [address] 14 Mar, 2014 [facility] [place] [facility] [address] [id number] [place] [address] Mar, [facility] [place] [facility] [address] [id number] [place] [address] Mar, [facility] [place] [facility] [address] [id number] [address] Mar, [facility] [place] [facility] [address] [facility] [id number] [address] 10 Feb, 2014 [facility] [place] [facility] [address] [id number] [address] Feb, [facility] [place] [facility] [address] [id number] [place] [address] 05 Feb, 2014 [facility] [place] [facility] [address] [id number] [place] [address] 05 Feb, 2014 [facility] [place] [facility] [address] [id number] [address] 05 Feb, 2014 [facility] [place] [facility] [address] [id number] [place] [address] Feb, [facility] [place] [facility] [address] [id number] [place] [address] Jan, [facility] [place] [facility] [address] [id number] [place] [address] Jan, [facility] [place] [facility] [address] [id number] [place] [address] Jan, [facility] [place] [facility] [address] [id number] [place] [address] Jan, [facility] [place] [facility] [address] [id number] [place] [address] Jan, [facility] [place] [facility] [address] [id number] [place] [address] Jan, [facility] [place] [facility] [address] [id number] [place] [address] Jan, [facility] [place] [facility] [address] [id number] [place] [address] Jan, [facility] [place] [facility] [address] [id number] [place] [address] Jan, [facility] [place] [facility] [address] [id number] [place] [address] Jan, [facility] [place] [facility] [address] [id number] [place] [address] Jan, [facility] [place] [facility] [address] [id number] [place] [address] Jan, [facility] [place] [facility] [address] [id number] [place] [address] Jan, [facility] [place] [facility] [address] [id number] [place] [address] Jan, [facility] [place] [facility] [address] [id number] [place] [address] Dec, [facility] [place] [facility] [address] [id number] [place] [address] Dec, [facility] [place] [facility] [address] [id number] [place] [address] Dec, [facility] [place] [facility] [address] [id number] [place] [address] Dec, [facility] [place] [facility] [address] [id number] [place] [address] Nov, [facility] [place] [facility] [address] [id number] [place] [address] Nov, [facility] [place] [facility] [address] [id number] [place] [address] Nov, [facility] [place] [facility] [address] [id number] [place] [address] Nov, [facility] [place] [facility] [address] [id number] [place] [address] Nov, [facility] [place] [facility] [address] [id number] [place] [address] October, [facility] [place] [facility] [address] [id number] [place] [address] October, [facility] [place] [facility] [address] [id number] [place] [address] October, [facility] [place] [facility] [address] [id number] [place] [address] October, [facility] [place] [facility] [address] [id number] [place] [address] October, [facility] [place] [facility] [address] [id number] [place] [address] October, [facility] [place] [facility] [address] [id number] [place] [address] October, [facility] [place] [facility] [address] [id number] [place] [address] October, [facility] [place] [facility] [address] [id number] [place] [address] October, [facility] [place] [facility] [address] [id number] [place] [address] October, [facility] [place] [facility] [address] [id number] [place] [address] October, [facility] [place] [facility] [address] [id number] [place] [address] October, [facility] [place] [facility] [address] [id number] [place] [address] October, [facility] [place] [facility] [address] [id number] [place] [address] October, [facility] [place] [facility] [address] [id number] [place] [address] Sep, [facility] [place] [facility] [address] [id number] [place] [address] Sep, [facility] [place] [facility] [address] [id number] [place] [address] Sep, [facility] [place] [facility] [address] [id number] [place] [address] Sep, [facility] [place] [facility] [address] [id number] [place] [address] Sep, [facility] [place] [facility] [address] [id number] [place] [address] Sep, [facility] [place] [facility] [address] [id number] [place] [address] Sep, [facility] [place] [facility] [address] [id number] [place] [address] Sep, [facility] [place] [facility] [address] [id number] [place] [address] Sep, [facility] [place] [facility] [address] [id number] [place] [address] Sep, [facility] [place] [facility] [address] [id number] [place] [address] Sep, [facility] [place] [facility] [address] [id number] [place] [address] Sep, [facility] [place] [facility] [address] [id number] [place] [address] Sep, [facility] [place] [facility] [address] [id number] [place] [address] Sep, [facility] [place] [facility] [address] [id number] [place] [address] Sep, [facility] [place] [facility] [address] [id number] [place] [address] Aug, [facility] [place] [facility] [address] [id number] [place] [address] Aug, [facility] [place] [facility] [address] [id number] [place] [address] Aug, [facility] [place] [facility] [address] [id number] [place] [address] Aug, [facility] [place] [facility] [address] [facility] [id number] [place] [address] Jul, [facility] [place] [facility] [address] [id number] [place] [address] Jul, [facility] [place] [facility] [address] [id number] [place] [address] Jul, [facility] [place] [facility] [address] [id number] [place] [address] Jul, [facility] [place] [facility] [address] [id number] [place] [address] Jun, [facility] [place] [facility] [address] [id number] [place] [address] Jun, [facility] [address] [id number] [place] [address] 15 Jun, 2013 [facility] [address] [id number] [place] [address] 15 Jun, 2013 [facility] [address] [id number] [place] [address] Jun, [facility] [address] [id number] [place] [address] Jun, [facility] [address] [id number] [place] [address] Jun, [facility] [address] [id number] [place] [address] Jun, [facility] [address] [id number] [place] [address] 20 May, 2013 [facility] [address] [id number] [place] [address] 20 May, 2013 [facility] [address] [id number] [place] [address] 18 May, 2013 [facility] [address] [id number] [place] [address] 18 May, 2013 [facility] [address] [id number] [place] [address] 17 May, 2013 [facility] [address] [id number] [id number] 17 May, 2013 [facility] [place] [facility] [address] [id number] [place] [address] 17 May, 2013 [facility] [place] [facility] [address] [id number] [place] [address] 17 May, 2013 [facility] [place] [facility] [address] [id number] [place] [address] 16 May, 2013 [facility] [address] [id number] [place] [address] 16 May, 2013 [facility] [address] [id number] [place] [address] 14 May, 2013 [facility] [place] [facility] [address] [id number] [place] [address] 14 May, 2013 [facility] [place] [facility] [address] [id number] [place] [address] 13 May, 2013 [facility] [place] [facility] [address] [id number] [place] [address] 13 May, 2013 [facility] [place] [facility] [address] [id number] [place] [address] 12 May, 2013 [facility] [place] [facility] [address] [id number] [place] [address] 12 May, 2013 [facility] [address] [id number] [place] [address] 11 May, 2013 [facility] [place] [facility] [address] [id number] [place] [address] May, [facility] [place] [facility] [address] [id number] [place] [address] Apr, [facility] [place] [facility] [address] [id number] [place] [address] Apr, [facility] [place] [facility] [address] [id number] [address] Apr, [facility] [place] [facility] [address] [id number] [place] [address] Apr, [facility] [place] [facility] [address] [id number] [place] [address] 27 Aug, 2012 [facility] [place] [facility] [address] [id number] [place] [address] 18 Aug, 2012 [facility] [place] [facility] [address] [id number] [place] [address] 06 Aug, 2012 [facility] [place] [facility] [address] [id number] [place] [address] Aug, [facility] [address] [id number] [place] [address] Jul, [facility] [address] [id number] [place] [address] Jun, [facility] [address] [id number] [place] [address] Jun, [facility] [address] [id number] [place] [address] Jun, [facility] [address] [id number] [place] [address] Jun, [facility] [address] [id number] [place] [address] May, [facility] [address] [id number] [place] [address] May, [facility] [address] [id number] [place] [address] May, [facility] [address] [id number] [place] [address] May, [facility] [address] [id number] [place] [address] May, [facility] [address] [id number] [place] [address] May, [facility] [address] [id number] [place] [address] May, [facility] [place] [facility] [address] [id number] [place] [address] Apr, [facility] [address] [id number] [place] [address] Apr, [facility] [address] [id number] [place] [address] Apr, [facility] [place] [facility] [address] [id number] [place] [address] Apr, [facility] [place] [facility] [address] [id number] [place] [address] Apr, [facility] [place] [facility] [address] [id number] [place] [address] Apr, [facility] [place] [facility] [address] [id number] [address] Apr, [facility] [place] [facility] [address] [id number] [place] [address] Mar, [facility] [place] [facility] [address] [id number] [place] [address] Mar, [facility] [place] [facility] [address] [id number] [place] [address] Mar, [facility] [place] [facility] [address] [id number] [place] [address] Mar, [facility] [place] [facility] [address] [id number] [place] [address] Mar, [facility] [place] [facility] [address] [id number] [address] Mar, [facility] [place] [facility] [address] [id number] [place] [address] Mar, [facility] [place] [facility] [address] [id number] [place] [address] Mar, [facility] [place] [facility] [address] [id number] [address] 15 Mar, 2012 [facility] [place] [facility] [address] [id number] [address] Mar, [facility] [place] [facility] [address] [facility] [id number] [address] Mar, [facility] [place] [facility] [address] [id number] [place] [address] Mar, [facility] [place] [facility] [address] [id number] [place] [address] Feb, [facility] [place] [facility] [address] [id number] [place] [address] Jan, [facility] [place] [facility] [address] [id number] [place] [address] Jan, [facility] [place] [facility] [address] [id number] [place] [address] Jan, [facility] [place] [facility] [address] [id number] [place] [address] Jan, [facility] [place] [facility] [address] [id number] [place] [address] Jan, [facility] [place] [facility] [address] [id number] [place] [address] Dec, [facility] [place] [facility] [address] [id number] [place] [address] Dec, [facility] [place] [facility] [address] [id number] [place] [address] Nov, [facility] [place] [facility] [address] [id number] [place] [address] Nov, [facility] [place] [facility] [address] [id number] [place] [address] Nov, [facility] [place] [facility] [address] [id number] [place] [address] October, [facility] [place] [facility] [address] [id number] [place] [address] October, [facility] [place] [facility] [address] [id number] [place] [address] October, [facility] [place] [facility] [address] [id number] [place] [address] October, [facility] [place] [facility] [address] [id number] [place] [address] 16 Oct, 2011 [facility] [address] [id number] [place] [address] October, [facility] [place] [facility] [address] [id number] [place] [address] October, [facility] [address] [id number] [place] [address] Sep, [facility] [address] [id number] [place] [address] Sep, [facility] [place] [facility] [address] [id number] [place] [address] Sep, [facility] [address] [id number] [place] [address] 25 Sep, 2011 [facility] [address] [id number] [place] [address] 24 Sep, 2011 [facility] [address] [id number] [place] [address] 19 Sep, 2011 [facility] [address] [id number] [place] [address] 17 Sep, 2011 [facility] [place] [facility] [address] [id number] [place] [address] 16 Sep, 2011 [facility] [place] [facility] [address] [id number] [place] [address] 16 Sep, 2011 [facility] [place] [facility] [address] [id number] [place] [address] 14 Sep, 2011 [facility] [place] [facility] [address] [id number] [place] [address] 13 Sep, 2011 [facility] [place] [facility] [address] [id number] [place] [address] 10 Sep, 2011 [facility] [place] [facility] [address] [id number] [place] [address] Sep, [facility] [address] [id number] [place] [address] Aug, [facility] [place] [facility] [address] [id number] [place] [address] Aug, [facility] [address] [facility] [id number] [place] [address] 08 Aug, 2011 [facility] [place] [facility] [address] [id number] [place] [address] 06 Aug, 2011 [facility] [address] [id number] [place] [address] 28 Jul, 2011 [facility] [place] [facility] [address] [facility] [id number] [place] [address] 22 Jul, 2011 [facility] [address] [facility] [id number] [place] [address] 16 Jul, 2011 [facility] [place] [facility] [address] [id number] [place] [address] 15 Jul, 2011 [facility] [address] [facility] [id number] [place] [address] 14 Jul, 2011 [facility] [address] [facility] [id number] [place] [address] 10 Jul, 2011 [facility] [address] [facility] [id number] [place] [address] Jun, [facility] [place] [facility] [address] [id number] [place] [address] Jun, [facility] [place] [facility] [address] [id number] [place] [address] Jun, [facility] [place] [facility] [address] [facility] [id number] [place] [address] Jun, [facility] [place] [facility] [address] [facility] [id number] [place] [address] Jun, [facility] [place] [facility] [address] [id number] [place] [address] 27 May, 2011 [facility] [place] [facility] [address] [id number] [place] [address] May, [facility] [place] [facility] [address] [id number] [place] [address] 14 May, 2011 [facility] [place] [facility] [address] [id number] [place] [address] 14 May, 2011 [facility] [place] [facility] [address] [id number] [place] [address] 12 May, 2011 [facility] [place] [facility] [address] [id number] [place] [address] 07 May, 2011 [facility] [place] [facility] [address] [id number] [place] [address] 05 May, 2011 [facility] [place] [facility] [address] [id number] [place] [address] 15 Apr, 2011 [facility] [place] [facility] [address] [id number] [place] [address] 15 Apr, 2011 [facility] [place] [facility] [address] [id number] [place] [address] 07 Apr, 2011 [facility] [place] [facility] [address] [id number] [place] [address] Apr, [facility] [place] [facility] [address] [id number] [place] [address] 04 Apr, 2011 [facility] [place] [facility] [address] [id number] [place] [address] Apr, [facility] [place] [facility] [address] [id number] [place] [address] 28 Mar, 2011 [facility] [place] [facility] [address] [id number] [place] [address] Mar, [facility] [place] [facility] [address] [id number] [place] [address] Mar, [facility] [address] [id number] [place] [address] Mar, [facility] [place] [facility] [address] [id number] [place] [address] Jan, [facility] [place] [facility] [address] [id number] [place] [address] Dec, [facility] [place] [facility] [address] [id number] [place] [address] Dec, [facility] [place] [facility] [address] [id number] [place] [address] October, [facility] [place] [facility] [address] [id number] [place] [address] Sep, [facility] [place] [facility] [address] [id number] [place] [address] Sep, [facility] [place] [facility] [address] [id number] [place] [address] Jul, [facility] [place] [facility] [address] [id number] [place] [address] Jul, [facility] [place] [facility] [address] [id number] [place] [address] May, [facility] [place] [facility] [address] [id number] [place] [address] May, [facility] [place] [facility] [address] [id number] [place] [address] May, [facility] [place] [facility] [address] [id number] [place] [address] May, [facility] [place] [facility] [address] [id number] [place] [address] Apr, [facility] [place] [facility] [address] [id number] [place] [address] Apr, [facility] [place] [facility] [address] [id number] [place] [address] 18 Apr, 2010 [facility] [address] [id number] [place] [address] 18 Apr, 2010 [facility] [place] [facility] [address] [id number] [place] [address] Apr, [facility] [address] [id number] [place] [address] 21 Mar, 2010 [facility] [place] [facility] [address] [id number] [place] [address] 14 Mar, 2010 [facility] [address] [id number] [place] [address], [place] [address] 13 Mar, 2010 [facility] [address] [id number] [place] [address] 12 Mar, 2010 [facility] [address] [id number] [place] [address] Jan, [facility] [address] [id number] [place] [address] 15 Dec, 2009 [facility] [address] [id number] [place] [address] 10 Sep, 2009 [facility] [address] [facility] [id number] [place] [address] 08 May, 2009 [facility] [place] [facility] [address] [id number] [place] [address] 06 May, 2009 [facility] [place] [facility] [address] [id number] [place] [address] 02 May, 2009 [facility] [place] [facility] [address] [id number] [place] [address] 17 Apr, 2009 [facility] [place] [facility] [address] [id number] [place] [address] 17 Apr, 2009 [facility] [place] [facility] [address] [id number] [place] [address] Apr, [facility] [address] [facility] [id number] [place] [address] Apr, [facility] [address] [id number] [address] Apr, [facility] [address] [facility] [id number] [address] Mar, [facility] [address] [id number] [address] Mar, [facility] [address] [facility] [id number] [address] Jul, IMMUNIZATIONS No Known Immunizations SOCIAL HISTORY Never Assessed REASON FOR VISIT EMR-[facility] [place] OF CARE VITAL SIGNS MEDICATIONS Unknown Medications RESULTS No Results PROCEDURES Procedure Date Ordered Result Body Site CYTOPATH C/V AUTO FLUID REDO May 21, 2012 INSTRUCTIONS MEDICATIONS ADMINISTERED No Known Medications MEDICAL [...] [facility] 12/20/15 Hospitalization History [facility] [place]- Abd pain 03/07/2017 Hospitalization History [facility] [place]- Abd pain 03/14/2017 Hospitalization History [facility] [place]- No bowel movement, rash 04/13/2017 Hospitalization History [facility] [place]- Abd pain r/t kidney surgery on 04/10/17 04/17/2017 Hospitalization History [facility] [place]- Abd pain r/t kidney surgery on 04/10/17 04/18/2017 Hospitalization History [facility] [place]- Lower abd pain 04/30/2017 Hospitalization History [facility] [place]- Cannot urinate 05/30/2017 Hospitalization History [facility] [place]- Pancreatitis Sx 06/29/2017 Hospitalization History [facility] [place]- Stomach pain 07/22/2017 Hospitalization History [facility] [place]- Left side pain 08/12/2017 Hospitalization History [facility]- Incision site infection 08/30/2017 Hospitalization History [facility], [place], operated by [facility]- Post Op Seroma/Hematoma Left Abdomen. Discharged 09/04/17- Dr Daniel 09/02/2017 Hospitalization History [facility] [place]- Right shoulder and back pain 10/22/2017 Hospitalization History [facility] [place]- Shoulder/Back pain 11/11/2017 Hospitalization History [facility] [place]- Right shoulder blade pain 12/04/2017 Hospitalization History [facility]- C-Diff 12/13/2017 Hospitalization History C diff et MRSA 12/27/2017
[2018-11-15] MEDS ORDERED: HYDROcodone/APAP 5 MG/325 MG (LORTAB) TAB PO ONE (15:15)
--- NOTE | 2018-11-15 16:04 | ED Abdominal Pain ---
General Chief Complaint: Abdominal/GI Problems Stated Complaint: VOMITING Nursing Triage Note: Pt c/o vomiting and feeling light headed. Vomiting began last night. Pt reports nausea began after a fall on . Pt has concerns because pt reports having surgery four weeks ago to have mesh replaced after having L kidney removed. Pt reports taking 16 mg of zofran at one time and the nausea has not resolved. Pt c/o L sided abdominal pain. Pt reports going to [facility] walk in clininc today and was told there was nothing that could be done to help pt there and to come to the ED. Sepsis Screen: No Definite Risk Source of Information: Patient Exam Limitations: No Limitations History of Present Illness Date Seen by Provider: Nov 15, 2018 Time Seen by Provider: 14:21 Initial Comments 33 year old female who present to the emergency room with complaints of chronic left flank pain and vomiting for 4 days. She reports the pain has increased over the past 4 days. She reports seeing Dr. Roman and [facility] for the pain. She denies fevers. She has appointment November [address] Roman. Timing/Duration: 3-4 Days Location: Flank Radiation: Flank Associated Symptoms: Nausea/Vomiting Allergies and Home Medications Allergies Coded Allergies: fentanyl (Verified Allergy, Unknown, 10/16/18) meperidine (Verified Allergy, Unknown, 10/16/18) penicillin G (Verified Allergy, Unknown, 10/16/18) vancomycin (Unverified Adverse Reaction, Intermediate, severe itching, 10/16/18) Home Medications Cyanocobalamin 1,000 Mcg/Ml Inj, 1,000 MCG IJ MONTHLY, (Reported) Estradiol 1 Mg Tablet, 1 MG PO HS, (Reported) Hydrocodone/Acetaminophen 1 Each Tablet, 1 EA PO Q6HR PRN for PAIN-MODERATE Prescribed by: LINDSEY ROMAN on 10/23/18 1307 Metoprolol Succinate 25 Mg Tab.er.24h, 25 MG PO HS, (Reported) Omeprazole 40 Mg Capsule.dr, 40 MG PO DAILY, (Reported) Ondansetron 8 Mg Tab.rapdis, 8 MG PO BID PRN for NAUSEA/VOMITING-1ST LINE, (Reported) Promethazine HCl 25 Mg Tablet, 25 MG PO Q6H PRN for NAUSEA/VOMITING Prescribed by: DEMETRIO KAY on 11/15/18 1639 Ropinirole HCl 4 Mg Tablet, 4 MG PO HS, (Reported) Sertraline HCl 50 Mg Tablet, 50 MG PO HS, (Reported) Tizanidine HCl 4 Mg Tablet, 4 MG PO TID PRN for MUSCLE SPASMS, (Reported) Patient Home Medication List Home Medication List Reviewed: Yes Review of Systems Review of Systems Constitutional: see HPI; No chills, No fever Gastrointestinal: See HPI, Abdominal Pain, Nausea, Vomiting All Other Systems Reviewed Negative Unless Noted: Yes Past Xblybct-Mznsnr-Kjwujv Hx Past Med/Social Hx: Reviewed Nursing Past Med/Soc Hx Patient Social History Alcohol Use: Denies Use Recreational Drug Use: No Smoking Status: Never a Smoker Type Used: Cigarettes 2nd Hand Smoke Exposure: No Recent Foreign Travel: No Contact w/Someone Who Travel: No Recent Infectious Disease Expo: No Recent Hopitalizations: Yes (10/22/18 ABD SX) Immunizations Up To Date Tetanus Booster (TDap): Unknown PED Vaccines UTD: No Date of Pneumonia Vaccine: May 17, 2012 Date of Influenza Vaccine: Jul 03, 2012 Seasonal Allergies Seasonal Allergies: Yes (MILD) Past Medical History Surgeries: Yes (LEFT NEPHRECTOMY; INCISIONAL HERNIA REPAIR; EGD'S AND COLONOSCOPIES) Abdominal, Adenoidectomy, Appendectomy, Gallbladder, 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, Nephrectomy, Orthopedic, Tonsillectomy Respiratory: Yes Asthma Currently Using CPAP: No Currently Using BIPAP: No Cardiac: Yes Hypertension Neurological: Yes (RESTLESS LEG SYNDROME) Headaches /Migraines 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: No (HX ENDOMETRIOSIS ) 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 Sexually Transmitted Disease: No HIV/AIDS: No Genitourinary: Yes (L KIDNEY REMOVED FOR TUMOR-MALIGNANT;) UTI-Chronic Gastrointestinal: Yes Abdominal Hernia, Liver Disease/Jaundice, Pancreatitis, Polyps Musculoskeletal: Yes (COCCYX-REPAIRED, ) Chronic Back Pain Endocrine: Yes (CHRONIC PANCREATITIS; OBESITY) HEENT: No Loss of Vision: Denies Hearing Impairment: Denies Cancer: Yes Kidney Did You Recieve Any Treatments: Yes What Type of Treatment Did You: Surgical Intervention Psychosocial: Yes Anxiety, Depression Integumentary: Yes Herpes Blood Disorders: No Adverse Reaction/Blood Tranf: No (N/A) Family Medical History Reviewed Nursing Family Hx Cardiovascular disease 19 FATHER Completed stroke 19 FATHER Diabetes mellitus 19 FATHER Hypercholesterolemia 19 FATHER 19 MOTHER Hypertension 19 FATHER 19 MOTHER Neoplasm 19 MOTHER Psychosocial problem 19 FATHER 19 MOTHER No Pertinent Family Hx, Cancer, Diabetes, Hypertension Physical Exam Vital Signs Vital Signs - First Documented 11/15/18 13:56 Temp 98.2 Pulse 74 Resp 15 B/P (MAP) 126/82 (97) Pulse Ox 96 O2 Delivery Room Air Capillary Refill : Less Than 3 Seconds Height/Weight/BMI Height: 5'3.00" Weight: 254lbs. 0.0oz. 115.952994gn; 47.6 BMI Method:Stated General Appearance: WD/WN, no apparent distress Respiratory: chest non-tender, lungs clear, normal breath sounds, no respiratory distress, no accessory muscle use Cardiovascular: normal peripheral pulses, regular rate, rhythm, no edema, no gallop, no JVD, no murmur Gastrointestinal: normal bowel sounds, non tender, soft, no organomegaly, no pulsatile mass Extremities: normal capillary refill Neurologic/Psychiatric: alert, normal mood/affect, oriented x 3 Skin: normal color, warm/dry Progress/Results/Core Measures Results/Orders Lab Results Laboratory Tests Test 11/15/18 14:18 11/15/18 14:25 Range/Units White Blood Count 7.8 4.3-11.0 10^3/uL Red Blood Count 4.35 4.35-5.85 10^6/uL Hemoglobin 11.7 11.5-16.0 G/DL Hematocrit 36 35-52 % Mean Corpuscular Volume 83 80-99 FL Mean Corpuscular Hemoglobin 27 25-34 PG Mean Corpuscular Hemoglobin Concent 32 32-36 G/DL Red Cell Distribution Width 13.5 10.0-14.5 % Platelet Count 290 130-400 10^3/uL Mean Platelet Volume 9.6 7.4-10.4 FL Neutrophils (%) (Auto) 57 42-75 % Lymphocytes (%) (Auto) 32 12-44 % Monocytes (%) (Auto) 5 0-12 % Eosinophils (%) (Auto) 6 0-10 % Basophils (%) (Auto) 0 0-10 % Neutrophils # (Auto) 4.4 1.8-7.8 X 10^3 Lymphocytes # (Auto) 2.5 1.0-4.0 X 10^3 Monocytes # (Auto) 0.4 0.0-1.0 X 10^3 Eosinophils # (Auto) 0.5 H 0.0-0.3 10^3/uL Basophils # (Auto) 0.0 0.0-0.1 10^3/uL Sodium Level 140 135-145 MMOL/L Potassium Level 3.9 3.6-5.0 MMOL/L Chloride Level 108 H 98-107 MMOL/L Carbon Dioxide Level 22 21-32 MMOL/L Anion Gap 10 5-14 MMOL/L Blood Urea Nitrogen 14 7-18 MG/DL Creatinine 0.99 0.60-1.30 MG/DL Estimat Glomerular Filtration Rate > 60 BUN/Creatinine Ratio 14 Glucose Level 97 70-105 MG/DL Calcium Level 9.7 8.5-10.1 MG/DL Corrected Calcium 9.5 8.5-10.1 MG/DL Total Bilirubin 0.3 0.1-1.0 MG/DL Aspartate Amino Transf (AST/SGOT) 30 5-34 U/L Alanine Aminotransferase (ALT/SGPT) 26 0-55 U/L Alkaline Phosphatase 67 40-136 U/L Total Protein 7.6 6.4-8.2 GM/DL Albumin 4.3 3.2-4.5 GM/DL Amylase Level 52 25-125 U/L Lipase 48 8-78 U/L Urine Color YELLOW Urine Clarity VERY CLOUDY H Urine pH 5 5-9 Urine Specific [place] 1.020 1.016-1.022 Urine Protein NEGATIVE NEGATIVE Urine Glucose (UA) NEGATIVE NEGATIVE Urine Ketones NEGATIVE NEGATIVE Urine Nitrite NEGATIVE NEGATIVE Urine Bilirubin NEGATIVE NEGATIVE Urine Urobilinogen NORMAL NORMAL MG/DL Urine Leukocyte Esterase NEGATIVE NEGATIVE Urine RBC (Auto) NEGATIVE NEGATIVE Urine RBC NONE /HPF Urine WBC 2-5 /HPF Urine Squamous Epithelial Cells 5-10 /HPF Urine Crystals NONE /LPF Urine Bacteria LARGE H /HPF Urine Casts NONE /LPF Urine Mucus SMALL H /LPF Urine Culture Indicated NO My Orders Orders - DEMETRIO AKY Comprehensive Metabolic Panel (11/15/18 14:18) Lipase (11/15/18 14:18) Amylase (11/15/18 14:18) Ua Culture If Indicated (11/15/18 14:18) Ed Iv/Invasive Line Start (11/15/18 14:18) Cbc With Automated Diff (11/15/18 14:18) Promethazine Injection (Phenergan Injec (11/15/18 14:30) Ns Iv 1000 Ml (Sodium Chloride 0.9%) (11/15/18 14:30) Hydrocodone/Apap 5/325 Tablet (Lortab 5 (11/15/18 15:15) Medications Given in ED Vital Signs/I&O 11/15/18 11/15/18 13:56 17:25 Temp 98.2 Pulse 74 52 Resp 15 18 B/P (MAP) 126/82 (97) 109/68 (82) Pulse Ox 96 96 O2 Delivery Room Air Room Air Blood Pressure Mean: 97 Progress Progress Note : Time: 16:38 Progress Note I have seen and evaluated the patient. I have informed her of her laboratory and imaging studies. Her nausea and pain has improved. She agrees with plan of care, plans for discharge, return precautions were given. Departure Impression Primary Impression: Abdominal wall pain Disposition: HOME, SELF-CARE Condition: Stable/Unchanged Departure-Patient Inst. Decision time for Depature: 16:38 Referrals: CARMEN GIBBS MD (PCP/Family) Primary Care Physician Patient Instructions: Acute Abdomen (Belly Pain), Adult (DC) Add. Discharge Instructions: Resume your home medications as previously prescribed. Take Phenergan as needed for nausea. Follow-up with your primary care provider within 1 week for recheck. Return back to the emergency room for worsening symptoms or concerns as needed. All discharge instructions reviewed with patient and/or family. Voiced un derstanding. Scripts Promethazine HCl (Promethazine Tablet) 25 Mg Tablet 25 MG PO Q6H PRN for NAUSEA/VOMITING, #14 TAB Prov: DEMETRIO KAY 11/15/18 DEMETRIO KAY Nov 15, 2018 16:04
[2018-11-15] MEDS ORDERED: PROM25TA14 PO (16:39)
[2018-11-15 17:25] VITALS: BP 109/68
== END 2018-11-15 17:25 | disposition home or self-care (01) ==
LOC: EDUNIT# 13:50 → ER 13:51
DX: R10.9 Unspecified abdominal pain (principal); J45.909 Unspecified asthma, uncomplicated; I10 Essential (primary) hypertension; G43.909 Migraine, unspecified, not intractable, without status migrainosus; E66.9 Obesity, unspecified; F41.9 Anxiety disorder, unspecified; F32.9 Major depressive disorder, single episode, unspecified; G25.81 Restless legs syndrome; Z86.010 Personal history of colon polyps; Z87.19 Personal history of other diseases of the digestive system; Z85.528 Personal history of other malignant neoplasm of kidney; Z86.19 Personal history of other infectious and parasitic diseases; Z82.49 Family history of ischemic heart disease and other diseases of the circulatory system; Z87.440 Personal history of urinary (tract) infections; Z87.448 Personal history of other diseases of urinary system; Z88.0 Allergy status to penicillin; Z88.1 Allergy status to other antibiotic agents; Z88.8 Allergy status to other drugs, medicaments and biological substances; Z90.5 Acquired absence of kidney; Z98.890 Other specified postprocedural states; Z90.89 Acquired absence of other organs; Z90.710 Acquired absence of both cervix and uterus; Z90.49 Acquired absence of other specified parts of digestive tract
CPT/HCPCS: 36415; 80053; 81000; 82150; 83690; 85025; 96361; 96374

== ENCOUNTER → 2018-11-18 | Outpatient (CLI) | payer MEDICARE, MEDICAID ==
--- NOTE | 2018-11-18 15:57 | Diagnostic Imaging Report ---
PROCEDURE: CT abdomen and pelvis without contrast. TECHNIQUE: Multiple contiguous axial images were obtained through the abdomen and pelvis without the use of intravenous contrast. Auto Exposure Controls were utilized during the CT exam to meet ALARA standards for radiation dose reduction. INDICATION: Left lower quadrant pain. Patient has prior history of left nephrectomy. Correlation is made with prior CT from 10/14/2018. FINDINGS: The lung bases are clear. The liver is unremarkable. Gallbladder is surgically absent. There is no biliary ductal dilatation. The pancreas and spleen are unremarkable. There are several rounded nodules anterior to the spleen which may represent splenules or accessory spleens. No adrenal mass is detected. Left kidney is surgically absent. Right kidney is unremarkable. No calculus or hydronephrosis is seen. Aorta is nonaneurysmal. Bowel loops are normal caliber on today's study. No bowel obstruction is detected. Inflammatory stranding in the left flank appears similar to prior CT. There appears to be some trace fluid just deep to the left lower quadrant abdominal wall, but no well-formed fluid collection is seen. No fluid elsewhere within the abdomen or pelvis is detected. The bladder is decompressed. IMPRESSION: Inflammatory stranding in the left flank, similar to prior CT. Trace fluid just deep to the anterior abdominal wall in the left lower quadrant is noted, but no well-formed fluid collection is detected. Postsurgical changes involving bowel loops in the anterior mid abdomen are noted. There is no evidence of bowel obstruction on today's study. Dictated by: Dictated on workstation # [id number]
== END ==
LOC: RAD 15:18
PROVIDERS: ATTEND Surgery
DX: R10.32 Left lower quadrant pain (principal); Z90.5 Acquired absence of kidney; Z90.89 Acquired absence of other organs
CPT/HCPCS: 74176

== ENCOUNTER 2018-12-10 13:23 | Emergency (ER) | payer MEDICARE, MEDICAID ==
[~2018-12-10] VITALS: Ht 160 cm; Wt 115.7 kg
[2018-12-10] MEDS ORDERED: FAMOTIDINE 20MG/2ML IV (PEPCID) IV STA (13:53)
[2018-12-10] MEDS ORDERED: LACTATED RINGERS 1,000 ML IV STA (13:53)
[2018-12-10] MEDS ORDERED: DIATRIZOATE MEGLUM/SODIUM 37% 120 ML (GASTROGRAFIN) PO ONE (14:00)
[2018-12-10] MEDS ORDERED: diphenhydrAMINE 50 MG/ML INJ (BENADRYL) IVP ONE (14:00)
[2018-12-10] MEDS ORDERED: ONDANSETRON 4 MG/2 ML (SDV) Z0FRAN IVP ONE (14:00)
[2018-12-10] MEDS ORDERED: ANTACID SUSP 30 ML UDC (MYLANTA) PO ONE (14:00)
[2018-12-10] MEDS ORDERED: LIDOCAINE 2% VISCOUS 15 ML UDC PO ONE (14:00)
[2018-12-10] MEDS ORDERED: METOCLOPRAMIDE INJ 10 MG/2 ML (REGLAN) IVP ONE (14:00)
--- NOTE | 2018-12-10 14:02 | ED Abdominal Pain ---
General Chief Complaint: Abdominal/GI Problems Stated Complaint: ABD PAIN;NAUSEA Nursing Triage Note: PT AMBULATES TO THE ER TRIAGE ROOM WITH COMPLAINTS OF NAUSEA AND VOMITING. STATED SHE LAST ATE LAST NIGHT AT 6PM AND STARTED PUKING THIS MORNING. Sepsis Screen: No Definite Risk Source of Information: Patient, Family Exam Limitations: No Limitations History of Present Illness Date Seen by Provider: Dec 10, 2018 Time Seen by Provider: 13:46 Initial Comments The patient presents to ER by private conveyance with chief complaint of second day of nausea vomiting and epigastric and right upper quadrant abdominal pain. Radiates to her right flank. She has a notable history of multiple hernia repair the left abdominal wall most recently in the last month or [address] Marroquin. She's had bowel obstructions in the past and cholecystectomy, appendectomy and hysterectomy. She took 16 mg of Zofran 3 hours prior to arrival with no relief. She's been using Tylenol for pain with no relief. She rates the pain presently is a 6 out of 10 intermittent crampy. She denies fever chills diarrhea. She does not member the last time she had a movement. She is not using any laxatives, stool softeners or fiber. She denies using opiates recently. Allergies and Home Medications Allergies Coded Allergies: fentanyl (Verified Allergy, Unknown, 10/16/18) meperidine (Verified Allergy, Unknown, 10/16/18) penicillin G (Verified Allergy, Unknown, 10/16/18) vancomycin (Unverified Adverse Reaction, Intermediate, severe itching, 10/16/18) Home Medications Cyanocobalamin 1,000 Mcg/Ml Inj, 1,000 MCG IJ MONTHLY, (Reported) Estradiol 1 Mg Tablet, 1 MG PO HS, (Reported) Hydrocodone/Acetaminophen 1 Each Tablet, 1 EA PO Q6HR PRN for PAIN-MODERATE Prescribed by: LINDSEY MARROQUIN on 10/23/18 1307 Metoprolol Succinate 25 Mg Tab.er.24h, 25 MG PO HS, (Reported) Omeprazole 40 Mg Capsule.dr, 40 MG PO DAILY, (Reported) Ondansetron 8 Mg Tab.rapdis, 8 MG PO BID PRN for NAUSEA/VOMITING-1ST LINE, (Reported) Promethazine HCl 25 Mg Tablet, 25 MG PO Q6H PRN for NAUSEA/VOMITING Prescribed by: DEMETRIO KAY on 11/15/18 1639 Ropinirole HCl 4 Mg Tablet, 4 MG PO HS, (Reported) Sertraline HCl 50 Mg Tablet, 50 MG PO HS, (Reported) Tizanidine HCl 4 Mg Tablet, 4 MG PO TID PRN for MUSCLE SPASMS, (Reported) Patient Home Medication List Home Medication List Reviewed: Yes Review of Systems Review of Systems Constitutional: No chills, No diaphoresis EENTM: No Blurred Vision, No Double Vision Respiratory: Denies Cough, Denies Orthopnea Cardiovascular: Denies Chest Pain, Denies Edema Gastrointestinal: See HPI; Denies Abdomen Distended; Abdominal Pain, Constipated; Denies Diarrhea; Nausea, Poor Fluid Intake, Vomiting Genitourinary: Denies Burning, Denies Discharge Musculoskeletal: No back pain, No joint pain Skin: No pruritus, No rash Past Tbuimrh-Snwtmn-Merhln Hx Patient Social History Alcohol Use: Denies Use Recreational Drug Use: No Smoking Status: Never a Smoker 2nd Hand Smoke Exposure: No Recent Foreign Travel: No Contact w/Someone Who Travel: No Recent Infectious Disease Expo: No Recent Hopitalizations: Yes (10/22/18 ABD SX) Immunizations Up To Date Tetanus Booster (TDap): Unknown PED Vaccines UTD: No Date of Pneumonia Vaccine: May 17, 2012 Date of Influenza Vaccine: Jul 03, 2012 Seasonal Allergies Seasonal Allergies: Yes (MILD) Past Medical History Surgeries: Yes (LEFT NEPHRECTOMY; INCISIONAL HERNIA REPAIR; EGD'S AND COLONOSCOPIES) Abdominal, Adenoidectomy, Appendectomy, Gallbladder, 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, Nephrectomy, Orthopedic, Tonsillectomy Respiratory: Yes Asthma Currently Using CPAP: No Currently Using BIPAP: No Cardiac: Yes Hypertension Neurological: Yes (RESTLESS LEG SYNDROME) Headaches /Migraines : No 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: No (HX ENDOMETRIOSIS ) 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 Sexually Transmitted Disease: No HIV/AIDS: No Genitourinary: Yes (L KIDNEY REMOVED FOR TUMOR-MALIGNANT;) UTI-Chronic Gastrointestinal: Yes Abdominal Hernia, Liver Disease/Jaundice, Pancreatitis, Polyps Musculoskeletal: Yes (COCCYX-REPAIRED, ) Chronic Back Pain Endocrine: Yes (CHRONIC PANCREATITIS; OBESITY) HEENT: No Loss of Vision: Denies Hearing Impairment: Denies Cancer: Yes Kidney Did You Recieve Any Treatments: Yes What Type of Treatment Did You: Surgical Intervention Psychosocial: Yes Anxiety, Depression Integumentary: Yes Herpes Blood Disorders: No Adverse Reaction/Blood Tranf: No (N/A) Family Medical History Cardiovascular disease 19 FATHER Completed stroke 19 FATHER Diabetes mellitus 19 FATHER Hypercholesterolemia 19 FATHER 19 MOTHER Hypertension 19 FATHER 19 MOTHER Neoplasm 19 MOTHER Psychosocial problem 19 FATHER 19 MOTHER No Pertinent Family Hx, Cancer, Diabetes, Hypertension Physical Exam Vital Signs Vital Signs - First Documented 12/10/18 13:29 Temp 98.4 Pulse 93 Resp 16 B/P (MAP) 145/107 (120) Pulse Ox 96 O2 Delivery Room Air Capillary Refill : Less Than 3 Seconds Height/Weight/BMI Height: 5'3.00" Weight: 255lbs. 0.0oz. 115.432910gd; 47.6 BMI Method:Stated General Appearance: WD/WN, no apparent distress HEENT: PERRL/EOMI, normal ENT inspection, pharynx normal Neck: full range of motion, normal inspection Respiratory: no respiratory distress, no accessory muscle use Cardiovascular: normal peripheral pulses, regular rate, rhythm (91) Peripheral Pulses: 2+ Radial Pulses (R), 2+ Radial Pulses (L) Gastrointestinal: soft, abnormal bowel sounds (absent), tenderness (right upper quadrant and epigastric region) Neurologic/Psychiatric: alert, normal mood/affect, oriented x 3 Progress/Results/Core Measures Results/Orders Lab Results Laboratory Tests Test 12/10/18 13:57 12/10/18 14:24 12/10/18 14:27 Range/Units White Blood Count 8.3 4.3-11.0 10^3/uL Red Blood Count 4.88 4.35-5.85 10^6/uL Hemoglobin 13.1 11.5-16.0 G/DL Hematocrit 40 35-52 % Mean Corpuscular Volume 82 80-99 FL Mean Corpuscular Hemoglobin 27 25-34 PG Mean Corpuscular Hemoglobin Concent 33 32-36 G/DL Red Cell Distribution Width 14.4 10.0-14.5 % Platelet Count 299 130-400 10^3/uL Mean Platelet Volume 9.6 7.4-10.4 FL Neutrophils (%) (Auto) 64 42-75 % Lymphocytes (%) (Auto) 29 12-44 % Monocytes (%) (Auto) 4 0-12 % Eosinophils (%) (Auto) 3 0-10 % Basophils (%) (Auto) 0 0-10 % Neutrophils # (Auto) 5.3 1.8-7.8 X 10^3 Lymphocytes # (Auto) 2.4 1.0-4.0 X 10^3 Monocytes # (Auto) 0.4 0.0-1.0 X 10^3 Eosinophils # (Auto) 0.2 0.0-0.3 10^3/uL Basophils # (Auto) 0.0 0.0-0.1 10^3/uL Sodium Level 140 135-145 MMOL/L Potassium Level 3.8 3.6-5.0 MMOL/L Chloride Level 105 98-107 MMOL/L Carbon Dioxide Level 23 21-32 MMOL/L Anion Gap 12 5-14 MMOL/L Blood Urea Nitrogen 15 7-18 MG/DL Creatinine 1.07 0.60-1.30 MG/DL Estimat Glomerular Filtration Rate 59 BUN/Creatinine Ratio 14 Glucose Level 125 H 70-105 MG/DL Calcium Level 9.8 8.5-10.1 MG/DL Corrected Calcium 9.9 8.5-10.1 MG/DL Magnesium Level 2.0 1.8-2.4 MG/DL Total Bilirubin 0.3 0.1-1.0 MG/DL Aspartate Amino Transf (AST/SGOT) 59 H 5-34 U/L Alanine Aminotransferase (ALT/SGPT) 31 0-55 U/L Alkaline Phosphatase 66 40-136 U/L C-Reactive Protein High Sensitivity 2.05 H 0.00-0.50 MG/DL Total Protein 7.2 6.4-8.2 GM/DL Albumin 3.9 3.2-4.5 GM/DL Lipase 35 8-78 U/L Urine Color YELLOW Urine Clarity CLEAR Urine pH 5 5-9 Urine Specific [place] 1.025 H 1.016-1.022 Urine Protein 1+ H NEGATIVE Urine Glucose (UA) NEGATIVE NEGATIVE Urine Ketones NEGATIVE NEGATIVE Urine Nitrite NEGATIVE NEGATIVE Urine Bilirubin NEGATIVE NEGATIVE Urine Urobilinogen NORMAL NORMAL MG/DL Urine Leukocyte Esterase NEGATIVE NEGATIVE Urine RBC (Auto) NEGATIVE NEGATIVE Urine RBC RARE /HPF Urine WBC 2-5 /HPF Urine Squamous Epithelial Cells 10-25 H /HPF Urine Crystals NONE /LPF Urine Bacteria MODERATE H /HPF Urine Casts NONE /LPF Urine Mucus SMALL H /LPF Urine Culture Indicated NO My Orders Orders - MAKAYLA HAWKINS Metoclopramide Injection (Reglan Injecti (12/10/18 14:00) Diphenhydramine Injection (Benadryl Inje (12/10/18 14:00) Ondansetron Injection (Zofran Injectio (12/10/18 14:00) Diatrizoate Meglum/Sodium 37% (Gastrogra (12/10/18 14:00) Lidocaine 2% Viscous 15 Ml (Xylocaine Vi (12/10/18 14:00) Antacid Suspension (Mylanta Suspension (12/10/18 14:00) Lactated Ringers (Lr 1000 Ml Iv Solution (12/10/18 13:53) Famotidine Injection (Pepcid Injection) (12/10/18 13:53) Cbc With Automated Diff (12/10/18 13:53) Comprehensive Metabolic Panel (12/10/18 13:53) Hs C Reactive Protein (12/10/18 13:53) Lipase (12/10/18 13:53) Magnesium (12/10/18 13:53) Ua Culture If Indicated (12/10/18 13:53) Ct Abdomen/Pelvis Wo (12/10/18 13:53) Medications Given in ED Current Medications Medications Dose Ordered Sig/Neal Route Start Time Stop Time Status Last Admin Dose Admin Al Hydrox/Mg Hydrox/Simethicone 30 ml ONCE ONCE PO 12/10/18 14:00 12/10/18 14:01 DC 12/10/18 14:41 30 ML Diphenhydramine HCl 25 mg ONCE ONCE IVP 12/10/18 14:00 12/10/18 14:01 DC 12/10/18 14:11 25 MG Lidocaine HCl 15 ml ONCE ONCE PO 12/10/18 14:00 12/10/18 14:01 DC 12/10/18 14:40 15 ML Metoclopramide HCl 10 mg ONCE ONCE IVP 12/10/18 14:00 12/10/18 14:01 DC 12/10/18 14:11 10 MG Ondansetron HCl 8 mg ONCE ONCE IVP 12/10/18 14:00 12/10/18 14:01 DC 12/10/18 14:10 8 MG Vital Signs/I&O 12/10/18 13:29 Temp 98.4 Pulse 93 Resp 16 B/P (MAP) 145/107 (120) Pulse Ox 96 O2 Delivery Room Air Blood Pressure Mean: 120 Progress Progress Note #1: Time: 14:02 Progress Note Plan to give a GI cocktail see if her pain is located in her esophagus gastric region. We'll check a lipase basic labs and repeat a urinalysis. We will give her some Reglan and Zofran for her nausea as she has very quiet sent or absent bowel sounds and may be experiencing an ileus. If she has pancreatitis and her vitals continued to be aseptic and her labs are unremarkable otherwise then we may consider holding off on doing a CT scan but will try and get her to drink s ome Gastrografin so we can start that process. If she has constipation/obstipation the Gastrografin will be helpful. If she has a bowel obstruction he will also be helpful. We'll try and avoid opiates until we've ruled out ileus/obstruction/bowel involvement. Liter of fluids. Progress Note #2: Time: 15:00 Progress Note The patient's labs to rule out severe infection, dehydration, pancreatitis however her nausea still persists but it is improved. Her pain is improved significantly after the GI cocktail. She got down half of the Gastrografin and then told the nurse that she has a family emergency she has to go attend to and wants to leave AGAINST MEDICAL ADVICE. Our next plan would be to get a CT scan looking for ileus versus bowel obstruction. Plan B would be for her to go on a clear liquid diet, Tylenol, MiraLAX or Dulcolax, enemas and follow-up with primary care this week. The patient says she will do that. Diagnostic Imaging Diagonstic Imaging: CT (oral contrast only) Plain Films/CT/US/NM/MRI: abdomen, pelvis Reviewed: Reviewed by Me Departure Impression Primary Impression: Abdominal pain Qualified Codes: R10.11 - Right upper quadrant pain Additional Impressions: Obstipation Gastritis Qualified Codes: K29.00 - Acute gastritis without bleeding Disposition: AGAINST MEDICAL ADVICE Condition: Against Medical Advice Departure-Patient Inst. Decision time for Depature: 15:03 Referrals: CARMEN GIBBS MD (PCP/Family) Primary Care Physician Patient Instructions: Intestinal Pseudo-obstruction (DC) Add. Discharge Instructions: Stick to a clear liquid diet and take [id number] pantoprazole 40 mg daily. Use your Zofran and MiraLAX as well as enemas twice a day until you have resolution of symptoms. Follow-up with your primary care doctor later this week. Return to the ER if you have intractable pain nausea vomiting or other concerns. All discharge instructions reviewed with patient and/or family. Voiced understanding. MAKAYLA HAWKINS Dec 10, 2018 14:02
[2018-12-10 14:08] LABS: BASOPHILS % (AUTO) 0 % (0-10); EOSINOPHILS # (AUTO) 0.2 10^3/uL (0.0-0.3); EOSINOPHILS % (AUTO) 3 % (0-10); HEMATOCRIT 40 % (35-52); HEMOGLOBIN 13.1 G/DL (11.5-16.0); LYMPHOCYTES # (AUTO) 2.4 X 10^3 (1.0-4.0); LYMPHOCYTES % (AUTO) 29 % (12-44); MEAN CORPUSCULAR HEMOGLOBIN 27 PG (25-34); MEAN CORPUSCULAR HGB CONC 33 G/DL (32-36); MEAN CORPUSCULAR VOLUME 82 FL (80-99); MEAN PLATELET VOLUME 9.6 FL (7.4-10.4); MONOCYTES # (AUTO) 0.4 X 10^3 (0.0-1.0); MONOCYTES % (AUTO) 4 % (0-12); NEUTROPHILS # (AUTO) 5.3 X 10^3 (1.8-7.8); NEUTROPHILS % (AUTO) 64 % (42-75); PLATELET COUNT 299 10^3/uL (130-400); RED CELL DISTRIBUTION WIDTH 14.4 % (10.0-14.5); WHITE BLOOD COUNT 8.3 10^3/uL (4.3-11.0)
[2018-12-10 14:36] LABS: BILIRUBIN,URINE NEGATIVE (NEGATIVE); CLARITY,URINE CLEAR; COLOR,URINE YELLOW; GLUCOSE, URINE (UA) NEGATIVE (NEGATIVE); KETONES,URINE NEGATIVE (NEGATIVE); LEUKOCYTE ESTERASE ,URINE NEGATIVE (NEGATIVE); NITRITE,URINE NEGATIVE (NEGATIVE); PH,URINE 5 (5-9); PROTEIN,URINE 1+ (NEGATIVE); UROBILINOGEN,URINE NORMAL (NORMAL)
[2018-12-10 14:45] LABS: BACTERIA,URINE MODERATE /HPF; RBC,URINE RARE /HPF
[2018-12-10 14:56] LABS: ALBUMIN 3.9 GM/DL (3.2-4.5); BILIRUBIN,TOTAL 0.3 MG/DL (0.1-1.0); CALCIUM 9.8 MG/DL (8.5-10.1); CREATININE SERUM 1.07 MG/DL (0.60-1.30); POTASSIUM 3.8 MMOL/L (3.6-5.0); TOTAL PROTEIN 7.2 GM/DL (6.4-8.2)
[2018-12-10 15:03] VITALS: BP 132/92
== END 2018-12-10 15:03 | disposition left against medical advice (07) ==
LOC: EDUNIT# 13:23 → ER 13:24
DX: K29.70 Gastritis, unspecified, without bleeding (principal); K59.00 Constipation, unspecified; J45.909 Unspecified asthma, uncomplicated; G43.909 Migraine, unspecified, not intractable, without status migrainosus; F41.9 Anxiety disorder, unspecified; F32.9 Major depressive disorder, single episode, unspecified; E66.9 Obesity, unspecified; Z87.19 Personal history of other diseases of the digestive system; Z85.528 Personal history of other malignant neoplasm of kidney; Z87.440 Personal history of urinary (tract) infections; Z98.890 Other specified postprocedural states; Z90.49 Acquired absence of other specified parts of digestive tract; Z90.710 Acquired absence of both cervix and uterus; Z86.010 Personal history of colon polyps; Z88.0 Allergy status to penicillin; Z88.1 Allergy status to other antibiotic agents; Z88.5 Allergy status to narcotic agent; Z88.8 Allergy status to other drugs, medicaments and biological substances; Z79.52 Long term (current) use of systemic steroids; Z90.89 Acquired absence of other organs; Z90.5 Acquired absence of kidney; Z82.49 Family history of ischemic heart disease and other diseases of the circulatory system
CPT/HCPCS: 36415; 80053; 81000; 83690; 83735; 85025; 86141; 96361; 96374; 96375

== ENCOUNTER 2019-01-07 11:01 | Emergency (ER) | payer MEDICARE, MEDICAID ==
[~2019-01-07] VITALS: Ht 157.5 cm; Wt 117.9 kg
--- OUTSIDE RECORDS SUMMARY | 2019-01-07 11:09 | XMS REPORT | Encounter Summary ---
Author Author [facility] Organization [facility] Address Unknown Phone Unavailable Care Team Providers Care Technology Auditor Name Role Phone Michael Sutton MD Unavailable Unavailable Mary Whittington MD PCP Jessica Valera Unavailable Maggie Puente Unavailable Unavailable Mary Telles MAINTENANCE DIRECTOR Unavailable Bam Ritter MD Unavailable Radha Bo LPN Unavailable Unavailable Jose Sanchez MD Unavailable Reason for Visit * Auth/Cert Referred By Contact Referred To Contact Status Reason Specialty Diagnoses / Procedures Diagnoses Chronic pancreatitis, unspecified pancreatitis type (HCC) Nausea Generalized abdominal pain Chronic pancreatitis, unspecified pancreatitis type (HCC) [K86.1] Nausea [R11.0] Generalized abdominal pain [R10.84] P rocedures DC EGD TRANSORAL BIOPSY SINGLE/MULTIPLE DC EDG US EXAM SURGICAL ALTER STOM DUODENUM/JEJUNUM ESOPHAGOGASTRODUOD ENOSCOPY WITH BIOPSY - FLEXIBLE ESOPHAGOGASTRODUOD ENOSCOPY WITH ENDOSCOPIC ULTRASOUND EXAMINATION - FLEXIBLE Encounter Details Care Team Description Date Type Department Hal Sparks MD [address] Ortho[facility] [address] [place] [address] ESOPHAGOGASTRODUODENOSCOPY WITH ENDOSCOPIC ULTRASOUND EXAMINATION - FLEXIBLE 08/22/2018 Surgery [facility] [address] [place] [address] Social History Date Tobacco Use Types Packs/Day Years Used Never Smoker Smokeless Tobacco: Never Used Drinks/Week oz/Week Comments Alcohol Use No Sex Assigned at Date Recorded Not on file Industry Job Start Date Occupation Not on file Not on file Not on file Travel End Travel History Travel Start No recent travel history available. documented as of this encounter Last Filed Vital Signs Reading Time Taken Comments Vital Sign 115/86 08/22/2018 8:50 AM ENDOCRINOLOGIST Blood Pressure 89 08/22/2018 8:54 AM ENDOCRINOLOGIST Pulse 36.8 C (98.2 F) 08/22/2018 8:30 AM ENDOCRINOLOGIST Temperature - - Respiratory Rate 96% 08/22/2018 8:53 AM ENDOCRINOLOGIST Oxygen Saturation - - Inhaled Oxygen Concentration 122.5 kg (270 lb) 08/22/2018 7:00 AM ENDOCRINOLOGIST Weight 157.5 cm (5' 2") 08/22/2018 7:00 AM ENDOCRINOLOGIST Height 49.38 08/22/2018 7:00 AM ENDOCRINOLOGIST Body Mass Index documented in this encounter Functional Status Date [...] Mary Lechuga RN - 08/22/2018 8:46 AM ENDOCRINOLOGIST EGD/Upper EUS/ERCP/Antegrade Enteroscopy Post Upper Endoscopy Instructions [...] After 5:00 pm, holidays or weekends call [phone] a nd ask for the GI Doctor process control programmer. CRINOLOGIST documented in this encounter Medications at Time [...] Joel Cantu MD - 08/22/2018 8:12 AM ENDOCRINOLOGIST Pre Procedure History and Physical/Sedation Plan Name:Janeth [...] Relevant labs reviewed Joel Cantu MD Pager CRINOLOGIST documented in this encounter Plan of Treatment Not on filedocumented as of this encounter Procedures Comments Procedure Name Priority Date/Time Associated Diagnosis ESOPHAGOGASTRODUODENOSCOP 08/22/2018 Chronic pancreatitis, Y WITH ENDOSCOPIC 8:15 AM ENDOCRINOLOGIST unspecified pancreatitis ULTRASOUND EXAMINATION - type (HCC) [...] () ENDOSCOPIC ULTRASOUND 08/22/2018 REPORT 7:47 AM ENDOCRINOLOGIST documented in this encounter Results * ENDOSCOPIC ULTRASOUND REPORT (08/22/2018 7:47 AM ENDOCRINOLOGIST) Provation Patient Name: Regulo WILKS OTHER Report Procedure Date: 08/22/2018 7:47 RESULTS AM CSN: [id number] Date of : 1985 Gender: Female Attending Physician: Hal Sparks MD Procedure: Upper EUS Indications: Epigastric abdominal pain, Family h/o chronic pancreatitis, pancreas divisum Providers: Hal Sparks MD (Doctor), Lorenza Powers RN (Nurse), Ana Fuentes (Elevating Grader Operator) Referring Physician: Randy Viveros MD Medications: [...] 55 seconds Procedure Code(s): --- Professional --- 65490, Esophagogastroduodenoscopy, flexible, transoral; with endoscopic ultrasound examination limited to the esophagus, stomach or duodenum, and adjacent structures CPT copyright 2017 [employer]. All rights reserved. The codes documented in this report are preliminary and upon spline rolling machine job setter review may be revised to meet current compliance requirements. Attending Participation: I personally performed the entire procedure. Hal Sparks MD 08/22/2018 8:38:22 AM The attending physician has electronically signed and finalized this document. Number of Addenda: 0 Note Initiated On: 08/22/2018 7:47 AM Specimen Performing Organization Address City/State/Zipcode Phone Number [facility] OTHER RESULTS documented in this encounter Visit Diagnoses Diagnosis Chronic pancreatitis, unspecified pancreatitis type (HCC) Nausea Nausea alone Generalized abdominal pain Abdominal pain, generalized documented in this encounter Administered Medications Action Date Dose Rate Site Medication Order MAR Action 08/22/2018 7:26 AM ENDOCRINOLOGIST 1,000 mL sodium chloride 0.9 % infusion Given - New 1,000 mL, Intravenous, CONTINUOUS, Bag Starting Sat08/22/18 at 0730, Until Sat08/22/18 at 1121, Pre-Op documented in this encounter
--- OUTSIDE RECORDS SUMMARY | 2019-01-07 11:09 | XMS REPORT | Encounter Summary ---
Author Author [facility] Organization [facility] Address Unknown Phone Unavailable Care Team Providers Care Classroom Instructor Name Role Phone Michael Sutton MD Unavailable Unavailable Mary Whittington MD PCP Jessica Valera Unavailable Maggie Puente Unavailable Unavailable Mary Telles APRN Unavailable Bam Ritter MD Unavailable Radha Bo LPN Unavailable Unavailable Jose Sanchez MD Unavailable Reason for Visit * Reason Comments Medication Refill Encounter Details Care Team Description Date Type Department Randy Nunez MD [address] Ortho[facility]Med [address] [place] [address] Medication monitoring encounter 12/29/[address] [facility] [address] [place] [address] Social History Date Tobacco Use [...] encounter Miscellaneous Notes * Telephone Encounter - Cindy Song RN - 12/30/2018 10:24 AM CDT Escript request for Vitamin B12 received. Lab last checked 09/02/17 (see below). Routing to Dr. Nunez to approve/ deny refill. VITAMIN B12 Order: [id number] Status: Final result Visible to patient: Yes (MyChart) Next appt: 019 at 10:30 AM in Radiology ([facility] Draw [facility]-[place]) Dx: B12 deficiency Ref Range & Units 09/02/17 1040 06/03/17 1128 Vitamin B12 180 - 914 PG/ML 495 185 Specimen Collected: 09/02/17 10:40 documented in this encounter Plan of Treatment Not on filedocumented as of this encounter Visit Diagnoses Diagnosis Medication monitoring encounter Encounter for therapeutic drug monitoring documented in this encounter
--- OUTSIDE RECORDS SUMMARY | 2019-01-07 11:09 | XMS REPORT | Encounter Summary ---
Author Author [facility] Organization [facility] Address Unknown Phone Unavailable Care Team Providers Care Senior Radiation Therapist Name Role Phone Michael Sutton MD Unavailable Unavailable Mary Whittington MD PCP Jessica Valera Unavailable Maggie Puente Unavailable Unavailable Mary Telles SECRETARY SPECIALIST Unavailable Bam Ritter MD Unavailable Radha Bo SANITATION LABORER Unavailable Unavailable Jose Sanchez MD Unavailable Reason [...] Date Type Department Ekaterina Chairez CRNA [id number] [place], [place] [id number] 08/22/2018 Anesthesia [facility] [address] [place] [address] Anesthesia Record Responsible Anesthesiologist Anesthesia [...] Janice Dickerson MD - 08/22/2018 8:52 AM DANCING MASTER Post-Anesthesia Evaluation Name: Janeth Rajput : 1985 [...] Perioperative Event: No Emergency Case Activation: No ING MASTER * Anesthesia Preprocedure Evaluation - Nuzhat Rudolph CRNA - 08/22/2018 7:04 AM DANCING MASTER Anesthesia Pre-Procedure Evaluation Name: Janeth Rajput : [...] Consent: consented Plan discussed with: anesthesiologist and ELEVATOR REPAIRER APPRENTICE. Comments: (Pt reports fentanyl and demerol allergy, says they cause itching and hallucinations. Reports she received benadryl for her last procedure and receive d fentanyl and had no adverse outcomes.) ING MASTER documented in this encounter Plan of Treatment Not on filedocumented as of this encounter Visit Diagnoses Not on filedocumented in this encounter Administered Medications Action Date Dose Rate Site Medication Order MAR Action 08/22/2018 8:18 AM DANCING MASTER 120 mg lidocaine (PF) injection Given INTRA-PROCEDURE MED, Starting Sat08/22/18 at 0818, Until Sat08/22/18 at 0834, Anesthesia Intra-op 08/22/2018 8:18 AM DANCING MASTER 4 mg ondansetron (ZOFRAN) injection Given INTRA-PROCEDURE MED, Starting Sat08/22/18 at 0818, Until Sat08/22/18 at 0834, Anesthesia Intra-op 08/22/2018 8:24 AM DANCING MASTER 140 mcg/kg/min 102.9 mL/hr propofol (DIPRIVAN) infusion Dose/Rate 50 mL, Intravenous, INTRA-PROCEDURE Change MED(CONT), Starting Sat08/22/18 at 0819, Until Sat08/22/18 at 0834, Anesthesia Intra-op 130 mcg/kg/min 95.6 mL/hr Dose/Rate Change 08/22/2018 8:22 AM DANCING MASTER 120 mcg/kg/min 88.2 mL/hr Given - New Bag 08/22/2018 8:19 AM DANCING MASTER 08/22/2018 8:26 AM DANCING MASTER 10 mg propofol (DIPRIVAN) injection Given INTRA-PROCEDURE MED, Starting Sat08/22/18 at 0819, Until Sat08/22/18 at 0834, Anesthesia Intra-op 20 mg Given 08/22/2018 8:25 AM DANCING MASTER 20 mg Given 08/22/2018 8:23 AM DANCING MASTER documented in this encounter
--- OUTSIDE RECORDS SUMMARY | 2019-01-07 11:09 | XMS REPORT | Clinical Summary ---
Author Author [facility] Organization [facility] Address Unknown Phone Unavailable Care Team Providers Care Red Hat Linux Engineer Name Role Phone Michael Sutton MD [...] you expected, contact Release of Information in [facility] Information Management department at [phone] for further assistan ce in locating additional records.[facility] Allergies Comments Active Allergy Reactions Severity Noted [...] by 9 mouth daily before breakfast. Active cyanocobalamin (VITAMIN INJECT 1 ML. 1 mL 3 B-12, RUBRAMIN) 1,000 INTRAMUSCULAR 9 mcg/mL LY EVERY 30 injectionIndications: DAYS Medication monitoring encounter Active Problems Problem Noted Date Other chronic pancreatitis 01/14/2018 Overview: Added automatically from request for surgery [id number] Intractable vomiting with nausea 01/14/2018 Overview: Added automatically from request for surgery [id number] Left renal mass 04/10/2017 Renal mass 03/21/2017 Overview: Added automatically from request for surgery [id number] 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 06/24/2013 Overview: S/P HOLLAND, BSO 11/27 Depression 06/24/2013 S/P cholecystectomy 06/24/2013 Overview: 2007 S/P appendectomy 06/24/2013 Overview: November 2012 Pancreatitis 10/23/2011 Encounters Care Team Description Date Type Specialty Randy Nunez MD Medication monitoring encounter 12/29/2018 Refill Gastroenterology Jessica Valera ARNP Other 10/14/2018 Telephone Gastroenterology from Last 3 Months Family [...] travel history available. Last Filed Vital Signs Reading Time Taken Comments Vital Sign 115/86 08/22/2018 8:50 AM ADMISSIONS OFFICER Blood Pressure 89 08/22/2018 8:54 AM ADMISSIONS OFFICER Pulse 36.8 C (98.2 F) 08/22/2018 8:30 AM ADMISSIONS OFFICER Temperature 18 05/19/2018 1:06 PM ADMISSIONS OFFICER Respiratory Rate 96% 08/22/2018 8:53 AM ADMISSIONS OFFICER Oxygen Saturation - - Inhaled Oxygen Concentration 122.5 kg (270 lb) 08/22/2018 7:00 AM ADMISSIONS OFFICER Weight 157.5 cm (5' 2") 08/22/2018 7:00 AM ADMISSIONS OFFICER Height 49.38 08/22/2018 7:00 AM ADMISSIONS OFFICER Body Mass Index Plan of Treatment Health Maintenance Due Date Last Done Comments PHYSICAL (COMPREHENSIVE) 1991 EXAM HIV SCREENING 1999 DTAP/TDAP VACCINES (1 - 2002 Tdap) CERVICAL CANCER SCREENING 2014 INFLUENZA VACCINE 03/17/2019 06/03/2018 Results Not on filefrom Last 3 Months Insurance Type Payer Benefit Subscriber ID Effective Phone Address Plan / Dates Group Medicare MEDICARE MEDICARE xxxxxxxxxxx 2011- PART A AND Present B AET[employer] MEDICAID AETNA xxxxxxxxxxx 2018-P [facility] Advance Directives Patient Cloth Checker Explanation Type Date Recorded Advance 04/10/2017 8:47 AM Directive/DPOA Date Inactivated Comments Code Status Date Activated 04/11/2017 4:57 PM Full Code 04/10/2017 5:31 PM Provider has discussed Code Status No, discussion not w/Patient or Family? necessary based on Dx
--- OUTSIDE RECORDS SUMMARY | 2019-01-07 11:09 | XMS REPORT | Encounter Summary ---
Author Author [facility] Organization [facility] Address Unknown Phone Unavailable Care Team Providers Care Boilermaker Ship Name Role Phone Michael Sutton MD Unavailable Unavailable Mary Whittington MD PCP Jessica Valera Unavailable Maggie Puente Unavailable Unavailable Mary Telles APRN Unavailable Bam Ritter MD Unavailable Radha Bo LPN Unavailable Unavailable Jose Sanchez MD Unavailable Encounter Details Care Team Description Date Type Department Melina Vargas Diarrhea, unspecified type 08/29/2018 Orders Only [facility] [address] [place] [address] Social History Date Tobacco Use [...] Results * C DIFFICILE BY PCR (08/26/2018) Specimen Feces Narrative Performed At Performing Organization Address City/State/Zipcode Phone Number OTHER OUTSIDE LAB documented in this encounter Visit Diagnoses Diagnosis Diarrhea, unspecified type documented in this encounter
--- OUTSIDE RECORDS SUMMARY | 2019-01-07 11:09 | XMS REPORT | Encounter Summary ---
Author Author [facility] Organization [facility] Address Unknown Phone Unavailable Care Team Providers Care Transformation Analyst Name Role Phone Michael Sutton MD Unavailable Unavailable Mary Whittington MD PCP Jessica Valera Unavailable Maggie Puente Unavailable Unavailable Mary Telles APRN Unavailable Bam Ritter MD Unavailable Radha Bo LPN Unavailable Unavailable Jose Sanchez MD Unavailable Reason for Visit * Reason Comments Other Encounter Details Care Team Description Date Type Department Jessica Valera ARNP [address] [facility] [place] [address] [place] [address] Other 10/14/2018 Telephone [facility] [address] [place] [address] Social History Date Tobacco Use [...] is currently admitted to the hospital at [facility] in [place], [place]. States "they saw signs of a [...]
--- OUTSIDE RECORDS SUMMARY | 2019-01-07 11:09 | XMS REPORT | Encounter Summary ---
Author Author [facility] Organization [facility] Address Unknown Phone Unavailable Care Team Providers Care Equipment Operator Intermodal Yard Name Role Phone Michael Sutton MD Unavailable Unavailable Mary Whittington MD PCP Jessica Valera Unavailable Maggie Puente Unavailable Unavailable Mary Telles APRN Unavailable Bam Ritter MD Unavailable Radha Bo LPN Unavailable Unavailable Jose Sanchez MD Unavailable Reason for Visit * Reason Comments Medication Refill Encounter Details Care Team Description Date Type Department Jessica Valera ARNP [address] [facility] [address] [place] [address] Chronic nausea; Chronic vomiting 09/09/2018 Refill [facility] [address] [place] [address] Social History Date Tobacco Use [...]
--- OUTSIDE RECORDS SUMMARY | 2019-01-07 11:09 | XMS REPORT | Encounter Summary ---
Author Author [facility] Organization [facility] Address Unknown Phone Unavailable Care Team Providers Care Netezza Developer Name Role Phone Michael Sutton MD Unavailable Unavailable Mary Whittington MD PCP Jessica Valera Unavailable Maggie Puente Unavailable Unavailable Mary Telles APRN Unavailable Bam Ritter MD Unavailable Radha Bo LPN Unavailable Unavailable Jose Sanchez MD Unavailable Reason for Visit * Reason Comments Referral Encounter Details Care Team Description Date Type Department Abel Poe MD [address] [place] [address] [phone] Referral 09/25/[address] [facility] [address] [address] Social History Date Tobacco Use Types Packs/Day [...] name and will let her physician in [place] know. documented in this encounter Plan of Treatment Not on filedocumented as of this encounter Visit Diagnoses Not on filedocumented in this encounter
--- OUTSIDE RECORDS SUMMARY | 2019-01-07 11:09 | XMS REPORT | Encounter Summary ---
Author Author [facility] Organization [facility] Address Unknown Phone Unavailable Care Team Providers Care Manager Community Name Role Phone Michael Sutton MD Unavailable Unavailable Mary Whittington MD PCP Jessica Valera Unavailable Maggie Puente Unavailable Unavailable Mary Telles DISPENSING OPERATOR Unavailable Bam Ritter MD Unavailable Radha [...] Date Type Department Hal Sparks MD [address] [facility] [address] [place] [address] Chronic pancreatitis, unspecified pancreatitis type (HCC) 08/22/2018 [facility] [address] [place] [address] Social History Date Tobacco Use [...] Comments Vital Sign 115/86 08/22/2018 8:50 AM LMSW Blood Pressure 89 08/22/2018 8:54 AM LMSW Pulse 36.8 C (98.2 F) 08/22/2018 8:30 AM LMSW Temperature - - Respiratory Rate 96% 08/22/2018 8:53 AM LMSW Oxygen Saturation - - Inhaled Oxygen Concentration 122.5 kg (270 lb) 08/22/2018 7:00 AM LMSW Weight 157.5 cm (5' 2") 08/22/2018 7:00 AM LMSW Height 49.38 08/22/2018 7:00 AM LMSW Body Mass Index documented in this encounter [...] Mary Lechuga RN - 08/22/2018 8:46 AM LMSW EGD/Upper EUS/ERCP/Antegrade Enteroscopy Post Upper Endoscopy Instructions [...] After 5:00 pm, holidays or weekends call [phone] a nd ask for the GI Doctor avionics engineer. documented in this encounter Medications at Time [...] Joel Cantu MD - 08/22/2018 8:12 AM LMSW Pre Procedure History and Physical/Sedation Plan Name:Janeth [...] Diagnostic Tests Labs: Relevant labs reviewed Joel Canut MD Pager documented in this encounter Plan of Treatment Not on filedocumented as of this encounter Procedures Comments Procedure Name Priority Date/Time Associated Diagnosis ESOPHAGOGASTRODUODENOSCOP 08/22/2018 Chronic pancreatitis, Y WITH ENDOSCOPIC 8:15 AM LMSW unspecified pancreatitis ULTRASOUND EXAMINATION - type (HCC) [...] () ENDOSCOPIC ULTRASOUND 08/22/2018 REPORT 7:47 AM LMSW documented in this encounter Results * ENDOSCOPIC ULTRASOUND REPORT (08/22/2018 7:47 AM LMSW) Provation Patient Name: Regulo WILKS OTHER Report Procedure Date: 08/22/2018 7:47 RESULTS AM CSN: [id number] Date of : 1985 Gender: Female Attending Physician: Hal Sparks MD Procedure: Upper EUS Indications: Epigastric abdominal pain, Family h/o chronic pancreatitis, pancreas divisum Providers: Hal Sparks MD (Doctor), Lorenza Powers RN (Nurse), Ana Fuentes (Mannequin Mold Maker) Referring Physician: Randy Viveros MD Medications: Monitored [...] 55 seconds Procedure Code(s): --- Professional --- 77798, Esophagogastroduodenoscopy, flexible, transoral; with endoscopic ultrasound examination limited to the esophagus, stomach or duodenum, and adjacent structures CPT copyright 2017 [employer]. All rights reserved. The codes documented in this report are preliminary and upon nutritional chemist review may be revised to meet current [...] Medication Order MAR Action 08/22/2018 7:26 AM LMSW 1,000 mL sodium chloride 0.9 % infusion Given - New 1,000 mL, Intravenous, CONTINUOUS, Bag Starting Sat08/22/18 at 0730, Until Sat08/22/18 at 1121, Pre-Op documented in this encounter
--- OUTSIDE RECORDS SUMMARY | 2019-01-07 11:10 | XMS REPORT | Encounter Summary ---
Author Author [facility] Organization [facility] Address Unknown Phone Unavailable Care Team Providers Care Setter Cold Rolling Machine Name Role Phone Michael Sutton MD Unavailable Unavailable Mary Whittington MD PCP Jessica Valera Unavailable Maggie Puente Unavailable Unavailable Mary Telles APRN Unavailable Bam Ritter MD Unavailable Radha Bo LPN Unavailable Unavailable Jose Sanchez MD Unavailable Reason for Visit * Reason Comments Medication Refill Encounter Details Care Team Description Date Type Department Randy Nunez MD [address] [facility] [address] [place] [address] Medication monitoring encounter 07/15/2018 Refill [facility] [address] [place] [address] Social History Date Tobacco Use [...]
--- OUTSIDE RECORDS SUMMARY | 2019-01-07 11:10 | XMS REPORT | Encounter Summary ---
Author Author [facility] Organization [facility] Address Unknown Phone Unavailable Care Team Providers Care Manager Video Name Role Phone Michael Sutton MD Unavailable Unavailable Mary Whittington MD PCP Jessica Valera Unavailable Maggie Puente Unavailable Unavailable Mary Telles APRN Unavailable Bam Ritter MD Unavailable Radha Bo LPN Unavailable Unavailable Jose Sanchez MD Unavailable Reason for Visit * Reason Comments Medication Refill Encounter Details Care Team Description Date Type Department Randy Nunez MD [address] [facility] [address] [place] [address] Medication monitoring encounter 08/18/2018 Refill [facility] [address] [place] [address] Social History Date Tobacco Use [...]
--- OUTSIDE RECORDS SUMMARY | 2019-01-07 11:11 | XMS REPORT ---
Author Author SAI CARMEN Organization [facility] Address [address] [place] [address] Care Team Providers Care Emergency Department Manager Name Role Phone CARMEN GIBBS Unavailable PROBLEMS Type Condition ICD9-CM Code DAG27-WA Code Onset Dates Condition Status SNOMED Code Problem Nodule of left lung R91.1 Active 216051166 Problem History of renal cell carcinoma Z85.528 Active 202301881 Problem Hyperlipidemia, mixed E78.2 Active 816841225 Problem Right carpal tunnel syndrome G56.01 Active 218970856480510 Problem Chronic fatigue R53.82 Active 11036864 Problem Moderate episode of recurrent major depressive disorder F33.1 Active 268785834 Problem Chronic pancreatitis K86.1 Active 939695178 Problem Morbid (severe) obesity due to excess calories E66.01 Active 251026683 Problem Polydipsia R63.1 Active 02803739 Problem Asthma J45.909 Active 058985578 Problem Trichotillomania F63.3 Active 98969886 Problem Atelectasis J98.11 Active 99472688 Problem Restless leg syndrome G25.81 Active 99735459 Problem Chronic post-traumatic stress disorder (PTSD) F43.12 Active 538908580 Problem Intestinal malabsorption, unspecified K90.9 Active 34082931 Problem Primary osteoarthritis of right knee M17.11 Active 877764978888806 Problem Obesities, morbid E66.01 Active 617651706 Problem Conflict between patient and family Z63.9 Active 69014105 Problem FH: polycystic ovary Z84.2 Active 859864724 Problem Observed sleep apnea G47.30 Active 73152840 Problem Hirsuties L68.0 Active 449697245 Problem Chronic tension-type headache, intractable G44.221 Active 223690487 Problem Menopausal symptoms N95.1 Active 88398487 Problem Morbid obesity E66.01 Active 291353232 Problem Social phobia, generalized F40.11 Active 59500111 Problem Social phobia, unspecified F40.10 Active 71616510 ALLERGIES No Information ENCOUNTERS Encounter Location Date Diagnosis [facility] [id number] [place] [address] Jan, [facility] [id number] [place] [address] Dec, [facility] [id number] [place] [address] Dec, [facility] [id number] [place] [address] Dec, [facility] [id number] [place] [address] Dec, [place] [id number] [place] [address] Dec, Hyperlipidemia, mixed E78.2 ; History of renal cell carcinoma Z85.528 and Restless leg syndrome G25.81 [facility] [id number] [place] [address] Dec, Hyperlipidemia, mixed E78.2 ; Chronic pancreatitis K86.1 ; Restless leg syndrome G25.81 ; Nodule of left lung R91.1 ; History of renal cell carcinoma Z85.528 ; Leg swelling M79.89 ; Morbid obesity E66.01 and Observed sleep apnea G47.30 [facility] [address] [place] [address] Nov, [facility] [id number] [place] [address] Nov, [facility] [id number] [place] [address] Nov, [facility] [id number] [place] [address] Nov, Other acute postprocedural pain G89.18 and Unspecified abdominal pain R10.9 [facility] [id number] [place] [address] [place] [address] October, [facility] [address] [address] October, Social phobia, generalized F40.11 ; Conflict between patient and family Z63.9 and Morbid obesity E66.01 [facility] [address] [address] October, [facility] [address] [address] October, [facility] [address] [address] October, [facility] [address] [address] October, [address] [address] October, [facility] [address] [address] October, [address] [address] October, [facility] [address] [address] October, Morbid obesity E66.01 ; Routine gynecological examination Z01.419 and Menopausal symptoms N95.1 [facility] [id number] [address] October, [address] [address] Sep, [facility] [address] [address] Sep, [facility] [address] [address] Sep, [facility] [id number] [address] Sep, [facility] [address] [address] Sep, Lower extremity edema R60.0 [facility] [id number] [place] [address] Sep, [facility] [address] [address] Sep, Lower extremity edema R60.0 and Morbid obesity E66.01 [facility] [id number] [address] Sep, [facility] [address] [place] [address] Sep, [facility] [id number] [place] [address] Aug, [facility] [address] [place] [address] Aug, Obesities, morbid E66.01 and Morbid obesity E66.01 [facility] [address] [address] Aug, [address] [address] Jul, [facility] [address] [address] Jul, [facility] [address] [address] Jul, [facility] [address] [address] Jul, Numbness of right hand R20.0 [facility] [address] [address] Jul, [facility] [address] [address] Jul, Numbness of right hand R20.0 [facility] [id number] [place] [address] Jul, [facility] [id number] [place] [address] Jul, [facility] [id number] [place] [address] Jul, Right-sided thoracic back pain M54.6 [facility] [id number] [place] [address] Jul, [facility] [id number] [place] [address] Jul, [facility] [id number] [place] [address] Jul, [facility] [id number] [place] [address] Jul, [facility] [id number] [place] [address] Jun, [facility] [id number] [place] [address] Jun, Acute pain of right shoulder M25.511 ; Numbness of right hand R20.0 and Trapezius muscle spasm M62.838 [facility] [id number] [place] [address] Jun, [facility] [id number] [place] [address] Jun, [facility] [id number] [place] [address] Jun, Cough R05 ; BMI 50.0-59.9, adult Z68.43 and Morbid obesity E66.01 [facility] [id number] [place] [address] Jun, [facility] [id number] [place] [address] 14 Jun, 2018 [facility] [id number] [place] [address] 13 Jun, 2018 BMI 45.0-49.9, adult Z68.42 and Acute non-recurrent maxillary sinusitis J01.00 [facility] [id number] [place] [address] 09 Jun, 2018 Acute sinusitis J01.90 ; Dysuria R30.0 and BMI 45.0-49.9, adult Z68.42 [facility] [id number] [place] [address] 07 Jun, 2018 [facility] [id number] [place] [address] Jun, [facility] [id number] [place] [address] May, [facility] [id number] [place] [address] May, [facility] [id number] [place] [address] May, [facility] [id number] [place] [address] May, [facility] [id number] [place] [address] May, [facility] [id number] [place] [address] Apr, Generalized social phobia F40.11 ; Trichotillomania F63.3 ; Chronic post-traumatic stress disorder (PTSD) F43.12 and BMI 45.0-49.9, adult Z68.42 [facility] [id number] [place] [address] Apr, [facility] [id number] [place] [address] Apr, Chronic tension-type headache, intractable G44.221 [facility] [address] [address] Apr, [facility] [id number] [place] [address] Mar, [facility] [id number] [place] [address] Mar, BMI 45.0-49.9, adult Z68.42 and Pimples R23.8 [facility] [id number] [place] [address] Mar, [place] [id number] [place] [address] Mar, [place] [id number] [place] [address] Mar, Decreased urination R34 ; Chronic fatigue R53.82 ; Peripheral edema R60.9 ; Diarrhea, unspecified type R19.7 ; Non-intractable vomiting with nausea, unspecified vomiting type R11.2 ; BMI 45.0-49.9, adult Z68.42 and Chronic post-traumatic stress disorder (PTSD) F43.12 [place] [address] [address] Mar, Intestinal malabsorption, unspecified K90.9 ; Diarrhea, unspecified R19.7 ; Urinary urgency R39.15 ; Rectal bleeding K62.5 and Decreased urine output R34 [place] [address] [address] Mar, Decreased urine output R34 [place] [id number] [place] [address] Mar, Rectal bleeding K62.5 [place] [id number] [address] Mar, Rectal bleeding K62.5 [place] [id number] [place] [address] Mar, Urinary urgency R39.15 [facility] [address] [address] Mar, Urinary urgency R39.15 [facility] [id number] [place] [address] Mar, Primary osteoarthritis of right knee M17.11 and BMI 45.0-49.9, adult Z68.42 [facility] [id number] [place] [address] Mar, [facility] [address] [address] Feb, Left upper arm pain M79.622 [facility] [id number] [place] [address] Feb, [facility] [address] [address] Jan, Acute pain of right knee M25.561 ; Right upper quadrant abdominal pain R10.11 and BMI 45.0-49.9, adult Z68.42 [facility] [id number] [place] [address] Jan, [facility] [id number] [place] [address] Jan, [facility] [id number] [place] [address] Dec, [facility] [id number] [place] [address] Dec, Intestinal malabsorption, unspecified K90.9 and Diarrhea, unspecified R19.7 [facility] [id number] [place] [address] Dec, [facility] [id number] [place] [address] Dec, Strep throat J02.0 ; Intestinal malabsorption, unspecified K90.9 ; Diarrhea, unspecified R19.7 ; Postoperative seroma involving digestive system after non-digestive system procedure K91.873 ; Hyperlipidemia, mixed E78.2 and BMI 45.0-49.9, adult Z68.42 [facility] [address] [address] Dec, [facility] [id number] [place] [address] Dec, Nausea R11.0 [facility] [id number] [place] [address] Dec, [facility] [id number] [place] [address] Dec, Sore throat J02.9 ; Strep throat J02.0 and BMI 45.0-49.9, adult Z68.42 [facility] [id number] [place] [address] Dec, [facility] [id number] [place] [address] Dec, [facility] [id number] [place] [address] Dec, [facility] [address] [address] Dec, [facility] [address] [address] Dec, [facility] [address] [address] Dec, [facility] [id number] [place] [address] Dec, [facility] [address] [address] Dec, [facility] [id number] [place] [address] Dec, Clostridium difficile colitis A04.72 ; Intractable vomiting with nausea, unspecified vomiting type R11.2 and BMI 45.0-49.9, adult Z68.42 [facility] [id number] [place] [address] Dec, [facility] [id number] [place] [address] Nov, [facility] [id number] [place] [address] Nov, [place] [address] [address] Nov, [place] [id number] [place] [address] Nov, [facility] [id number] [place] [address] Nov, [facility] [id number] [place] [address] Nov, Hyperlipidemia, mixed E78.2 [facility] [place] [id number] [place] [address] Nov, Acute suppurative otitis media of right ear without spontaneous rupture of tympanic membrane, recurrence not specified H66.001 and BMI 45.0-49.9, adult Z68.42 [facility] [id number] [place] [address] Nov, Hyperlipidemia, mixed E78.2 [facility] [id number] [place] [address] Nov, [facility] [id number] [place] [address] Nov, [facility] [id number] [place] [address] Nov, Nodule of left lung R91.1 [place] [address] [place] [address] Nov, Medicare annual wellness visit, initial Z00.00 [...] adult Z68.42 and Encounter for immunization Z23 [place] [id number] [place] [address] October, [place] [id number] [place] [address] October, Nodule of left lung R91.1 [place] [id number] [place] [address] October, Nodule of left lung R91.1 [place] [id number] [place] [address] October, Recurrent major depressive disorder, in partial remission F33.41 ; Restless leg syndrome G25.81 ; Generalized social phobia F40.11 ; Chronic post-traumatic stress disorder (PTSD) F43.12 ; BMI 45.0-49.9, adult Z68.42 and Trichotillomania F63.3 [place] [id number] [place] [address] October, [place] [id number] [place] [address] Sep, Chronic fatigue R53.82 and BMI 45.0-49.9, adult Z68.42 [place] [address] [place] [address] Aug, [place] [id number] [place] [address] Jul, Restless leg syndrome G25.81 and B12 deficiency E53.8 [place] [id number] [place] [address] Jul, [place] [id number] [place] [address] Jul, [place] [address] [address] Jun, [place] [id number] [place] [address] Jun, Fatigue, unspecified type R53.83 ; History of renal cell carcinoma Z85.528 ; Chronic pancreatitis K86.1 ; Restless leg syndrome G25.81 ; Dark urine R82.99 and BMI 45.0-49.9, adult Z68.42 [place] [id number] [place] [address] Jun, [place] [id number] [place] [address] Jun, [place] [id number] [place] [address] Jun, [place] [id number] [place] [address] Jun, [place] [id number] [place] [address] May, Chronic post-traumatic stress disorder (PTSD) F43.12 ; Moderate episode of recurrent major depressive disorder F33.1 ; Trichotillomania F63.3 and Generalized social phobia F40.11 [place] [id number] [place] [address] May, [place] [id number] [place] [address] May, Chronic post-traumatic stress disorder (PTSD) F43.12 ; Moderate episode of recurrent major depressive disorder F33.1 ; Trichotillomania F63.3 and Generalized social phobia F40.11 [place] [address] [place] [address] May, Hyperlipidemia, mixed E78.2 ; Morbid (severe) obesity due to excess calories E66.01 ; Chronic post-traumatic stress disorder (PTSD) F43.12 ; Moderate episode of recurrent major depressive disorder F33.1 ; Trichotillomania F63.3 and Generalized social phobia F40.11 [place] [address] [address] Apr, [place] [id number] [place] [address] 29 Apr, 2017 Hyperlipidemia, mixed E78.2 ; Morbid (severe) obesity due to excess calories E66.01 ; Chronic post-traumatic stress disorder (PTSD) F43.12 ; Moderate episode of recurrent major depressive disorder F33.1 ; Trichotillomania F63.3 and Generalized social phobia F40.11 [place] [address] [address] Apr, Trichotillomania F63.3 ; Generalized social phobia F40.11 ; Chronic post-traumatic stress disorder (PTSD) F43.12 and Moderate episode of recurrent major depressive disorder F33.1 [place] [address] [address] Apr, [place] [address] [address] Apr, [place] [address] [place] [address] Mar, Moderate episode of recurrent major depressive disorder F33.1 ; Trichotillomania F63.3 ; Chronic post-traumatic stress disorder (PTSD) F43.12 ; Generalized social phobia F40.11 and Restless leg syndrome G25.81 [place] [id number] [place] [address] Mar, [facility] [id number] [place] [id number] Mar, [facility] [id number] [place] [address] Feb, Left kidney mass N28.89 [facility] [address] [address] Jan, [facility] [address] [place] [id number] [place] [address] Dec, Polydipsia R63.1 ; Chronic pancreatitis K86.1 and Fatigue, unspecified type R53.83 [facility] [address] [id number] [place] [id number] Nov, [facility] [id number] [place] [address] Nov, [facility] [address] [id number] [place] [address] Nov, Headache around the eyes R51 [facility] [id number] [place] [id number] Nov, [facility] [id number] [place] [address] October, STD exposure Z20.2 [facility] [address] [id number] [place] [address] October, STD exposure Z20.2 [facility] [id number] [place] [address] October, Chronic post-traumatic stress disorder (PTSD) F43.12 ; Generalized social phobia F40.11 ; Trichotillomania F63.3 and Restless leg syndrome G25.81 [facility] [id number] [place] [address] October, [place] [id number] [place] [address] Sep, [place] [address] [id number] [place] [address] 17 Aug, 2016 [place] [address] [place] [id number] [place] [address] Aug, [place] [address] [address] 08 Aug, 2016 Neck mass R22.1 [place] [address] [address] Aug, Atelectasis J98.11 [place] [address] [place] [id number] [place] [address] 28 Jul, 2016 Hyperlipidemia, mixed E78.2 ; Atypical pneumonia J18.9 and Neck mass R22.1 [place] [id number] [place] [address] 15 Jul, 2016 Hemoptysis R04.2 [place] [id number] [place] [address] 08 Jul, 2016 Acute non-recurrent pansinusitis J01.40 ; Hemoptysis R04.2 ; Polydipsia R63.1 and Malaise R53.81 [facility] [place] [id number] [place] [address] May, Other viral agents as the cause of diseases classified elsewhere B97.89 and Acute upper respiratory infection, unspecified J06.9 [facility] [place] [id number] [place] [address] Mar, Nausea R11.0 [facility] [place] [id number] [place] [address] Dec, Hives L50.9 [place] [id number] [place] [address] 14 Dec, 2015 [facility] [place] [address] [address] [address] 10 Dec, 2015 Cutaneous abscess of limb, unspecified L02.419 ; Cellulitis of unspecified part of limb L03.119 ; Encounter for incision and drainage procedure Z01.89 and Encounter for recheck of abscess following incision and drainage Z09 [facility] [place] [address] [id number] [place] [address] 09 Dec, 2015 Abscess of leg, right L02.415 [place] [address] [address] [place] [id number] [place] [address] 08 Dec, 2015 Cellulitis of unspecified part of limb L03.119 and Cutaneous abscess of limb, unspecified L02.419 [place] [id number] [place] [address] Dec, [place] [address] [place] [id number] [place] [address] Dec, [facility] [place] [address] [place] [id number] [place] [address] Aug, [place] [address] [place] [id number] [place] [address] Aug, [facility] [id number] [place] [address] Jul, Pain in unspecified wrist M25.539 and Back pain, thoracic M54.6 [facility] [id number] [place] [address] Jun, Strain of right wrist, initial encounter S66.911A [place] [address] [place] [id number] [place] [address] 11 Jun, 2015 Chronic pancreatitis, unspecified pancreatitis type K86.1 ; Hirsuties L68.0 ; Morbid (severe) obesity due to excess calories E66.01 ; Chronic pancreatitis K86.1 and Asthma J45.909 [place] [address] [place] [id number] [place] [address] May, [facility] [address] [place] [id number] [place] [address] May, Hyperlipidemia, mixed E78.2 and Muscle spasm of back M62.830 [facility] [address] [place] [id number] [place] [address] Apr, [facility] [address] [address] Apr, Torticollis M43.6 [facility] [address] [place] [id number] [place] [address] Apr, Right-sided thoracic back pain M54.6 [facility] [address] [place] [id number] [place] [address] Mar, Rash R21 [facility] [address] [address] Mar, [facility] [address] [place] [id number] [place] [address] Jan, [facility] [address] [address] Dec, [facility] [address] [place] [id number] [place] [address] Dec, Urinary frequency 788.41 and Nocturia more than twice per night 788.43 [facility] [address] [place] [id number] [place] [address] Nov, [facility] [address] [place] [id number] [place] [address] Nov, [facility] [address] [place] [id number] [place] [address] Nov, Abdominal pain 789.00 [facility] [address] [place] [id number] [place] [address] October, TDAP DX V06.1 [facility] [address] [facility] [id number] [address] October, [facility] [address] [address] October, Disturbance of skin sensation 782.0 ; Wrist pain, right 719.43 ; Hyperlipidemia 272.4 and Skin lesion of face 709.9 [facility] [address] [facility] [id number] [address] Sep, [facility] [address] [facility] [id number] [place] [address] Sep, [facility] [address] [facility] [id number] [place] [address] Aug, [facility] [address] [address] Aug, [facility] [address] [place] [id number] [address] Aug, [facility] [address] [place] [id number] [address] Aug, [facility] [address] [place] [id number] [address] Aug, [facility] [address] [address] 16 Aug, 2014 [facility] [address] [place] [id number] [address] 14 Aug, 2014 [facility] [address] [facility] [id number] [place] [address] Aug, [facility] [address] [facility] [id number] [place] [address] Aug, [facility] [address] [facility] [id number] [place] [address] Aug, [facility] [address] [address] Aug, [facility] [place] [facility] [address] [id number] [place] [address] Aug, [facility] [place] [facility] [address] [id number] [place] [address] Aug, [facility] [place] [facility] [address] [id number] [place] [address] Aug, [facility] [place] [facility] [address] [id number] [place] [address] Jul, 2014 [facility] [place] [facility] [address] [id number] [place] [address] Jul, 2014 [facility] [place] [facility] [address] [id number] [place] [address] Jul, 2014 [facility] [place] [facility] [address] [id number] [place] [address] Jul, 2014 [facility] [place] [facility] [address] [id number] [place] [address] Jul, [facility] [place] [facility] [address] [id number] [place] [address] Jul, [facility] [place] [facility] [address] [id number] [place] [address] Jun, [facility] [place] [facility] [address] [id number] [place] [address] Jun, [facility] [place] [facility] [address] [id number] [place] [address] Jun, [facility] [place] [facility] [address] [id number] [place] [address] Jun, [facility] [place] [facility] [address] [id number] [place] [address] Jun, [facility] [place] [facility] [address] [id number] [place] [address] Jun, [facility] [place] [facility] [address] [id number] [place] [address] 15 Jun, 2014 [facility] [place] [facility] [address] [id number] [place] [address] 15 Jun, 2014 [facility] [place] [facility] [address] [id number] [place] [address] May, [facility] [place] [facility] [address] [id number] [place] [address] May, [facility] [place] [facility] [address] [id number] [place] [address] May, [facility] [place] [facility] [address] [id number] [place] [address] May, [facility] [place] [facility] [address] [id number] [place] [address] May, [facility] [place] [facility] [address] [id number] [place] [address] May, [facility] [place] [facility] [address] [id number] [place] [address] May, [facility] [place] [facility] [address] [id number] [place] [address] May, [facility] [place] [facility] [address] [id number] [place] [address] May, [facility] [place] [facility] [address] [id number] [place] [address] May, [facility] [place] [facility] [address] [id number] [place] [address] May, [facility] [place] [facility] [address] [id number] [place] [address] May, [facility] [place] [facility] [address] [id number] [place] [address] Apr, [facility] [place] [facility] [address] [id number] [address] Apr, [facility] [place] [facility] [address] [id number] [place] [address] Apr, [facility] [place] [facility] [address] [id number] [place] [address] Apr, [facility] [place] [facility] [address] [id number] [place] [address] Apr, [facility] [place] [facility] [address] [id number] [place] [address] Apr, [facility] [place] [facility] [address] [id number] [place] [address] Apr, [facility] [place] [facility] [address] [id number] [place] [address] Apr, [facility] [place] [facility] [address] [id number] [place] [address] Apr, [facility] [place] [facility] [address] [id number] [place] [address] Apr, [facility] [place] [facility] [address] [id number] [place] [address] Apr, [facility] [place] [facility] [address] [id number] [place] [address] Apr, [facility] [place] [facility] [address] [id number] [place] [address] Mar, [facility] [place] [facility] [address] [id number] [place] [address] Mar, [facility] [place] [facility] [address] [id number] [place] [address] Mar, [facility] [place] [facility] [address] [id number] [place] [address] Mar, [facility] [place] [facility] [address] [id number] [place] [address] 10 Feb, 2014 [facility] [place] [facility] [address] [id number] [place] [address] 10 Feb, 2013 [facility] [place] [facility] [address] [id number] [place] [address] 05 Feb, 2013 [facility] [place] [facility] [address] [id number] [place] [address] 05 Feb, 2013 [facility] [place] [facility] [address] [id number] [place] [address] 05 Feb, 2013 [facility] [place] [facility] [address] [id number] [place] [address] Feb, 2013 [facility] [place] [facility] [address] [id number] [place] [address] Jan, [facility] [place] [facility] [address] [id number] [place] [address] Jan, 2013 [facility] [place] [facility] [address] [id number] [place] [address] Jan, [facility] [place] [facility] [address] [id number] [place] [address] Jan, [facility] [place] [facility] [address] [id number] [place] [address] Jan, [facility] [place] [facility] [address] [id number] [place] [address] Jan, [facility] [place] [facility] [address] [id number] [place] [address] Jan, [facility] [place] [facility] [address] [id number] [place] [address] Jan, [facility] [place] [facility] [address] [id number] [place] [address] Jan, [facility] [place] [facility] [address] [id number] [place] [address] Jan, [facility] [place] [facility] [address] [id number] [place] [address] Jan, [facility] [place] [facility] [address] [id number] [place] [address] Jan, [facility] [place] [facility] [address] [id number] [place] [address] Jan, [facility] [place] [facility] [address] [id number] [place] [address] Jan, [facility] [place] [facility] [address] [id number] [place] [address] Dec, [facility] [place] [facility] [address] [id number] [place] [address] Dec, [facility] [place] [facility] [address] [id number] [place] [address] Dec, [facility] [place] [facility] [address] [id number] [place] [address] Dec, [facility] [place] [facility] [address] [id number] [place] [address] Nov, [facility] [place] [facility] [address] [id number] [place] [address] Nov, [facility] [place] [facility] [address] [id number] [place] [address] Nov, [facility] [place] [facility] [address] [id number] [place] [address] Nov, [facility] [place] [facility] [address] [id number] [place] [address] Nov, [facility] [place] [facility] [address] [id number] [place] [address] October, [facility] [place] [facility] [address] [id number] [place] [address] October, [facility] [place] [facility] [address] [id number] [place] [address] October, [facility] [place] [facility] [address] [id number] [place] [address] October, [facility] [address] [id number] [place] [address] October, [facility] [place] [facility] [address] [id number] [place] [address] October, [facility] [address] [id number] [place] [address] October, [facility] [place] [facility] [address] [id number] [place] [address] October, [facility] [place] [facility] [address] [id number] [place] [address] October, [facility] [place] [facility] [address] [id number] [place] [address] October, [facility] [address] [id number] [place] [address] October, [facility] [place] [facility] [address] [id number] [place] [address] October, [facility] [place] [facility] [address] [id number] [place] [address] October, [facility] [place] [facility] [address] [id number] [place] [address] October, [facility] [place] [facility] [address] [id number] [place] [address] Sep, [facility] [place] [facility] [address] [id number] [place] [address] Sep, [facility] [place] [facility] [address] [id number] [place] [address] Sep, [facility] [place] [facility] [address] [id number] [place] [address] Sep, [facility] [place] [facility] [address] [id number] [place] [address] Sep, [facility] [place] [facility] [address] [id number] [place] [address] Sep, [facility] [place] [facility] [address] [id number] [place] [address] Sep, [facility] [place] [facility] [address] [id number] [place] [address] Sep, [facility] [place] [facility] [address] [id number] [place] [address] Sep, [facility] [place] [facility] [address] [id number] [place] [address] Sep, [facility] [place] [facility] [address] [id number] [place] [address] Sep, [facility] [place] [facility] [address] [id number] [place] [address] Sep, [facility] [place] [facility] [address] [id number] [place] [address] Sep, [facility] [place] [facility] [address] [id number] [place] [address] Sep, [facility] [place] [facility] [address] [id number] [place] [address] Sep, [facility] [place] [facility] [address] [id number] [place] [address] Aug, [facility] [place] [facility] [address] [id number] [place] [address] Aug, [facility] [place] [facility] [address] [id number] [place] [address] Aug, [facility] [place] [facility] [address] [id number] [place] [address] Aug, [facility] [place] [facility] [address] [id number] [place] [address] Jul, [facility] [place] [facility] [address] [id number] [place] [address] 06 Jul, 2013 [facility] [address] [id number] [place] [address] Jul, [facility] [place] [facility] [address] [id number] [place] [address] Jul, [facility] [address] [id number] [place] [address] 15 Jun, 2013 [facility] [place] [facility] [address] [id number] [place] [address] Jun, [facility] [address] [id number] [place] [address] Jun, [facility] [place] [facility] [address] [id number] [place] [address] Jun, [facility] [address] [id number] [place] [address] Jun, [facility] [place] [facility] [address] [id number] [place] [address] Jun, [facility] [address] [id number] [place] [address] Jun, [facility] [address] [facility] [id number] [place] [address] Jun, [facility] [address] [id number] [place] [address] May, [facility] [place] [facility] [address] [id number] [place] [address] May, [facility] [place] [facility] [address] [id number] [place] [address] 18 May, 2013 [facility] [place] [facility] [address] [id number] [place] [address] 18 May, 2013 [facility] [place] [facility] [address] [id number] [place] [address] 17 May, 2013 [facility] [place] [facility] [address] [id number] [place] [id number] 17 May, 2013 [facility] [address] [id number] [place] [address] 17 May, 2013 [facility] [address] [id number] [place] [address] 17 May, 2013 [facility] [address] [id number] [place] [address] 16 May, 2013 [facility] [address] [id number] [place] [address] 16 May, 2013 [facility] [address] [id number] [place] [address] 14 May, 2013 [facility] [address] [id number] [place] [address] 14 May, 2013 [facility] [address] [id number] [place] [address] 13 May, 2013 [facility] [address] [id number] [place] [address] 13 May, 2013 [facility] [address] [id number] [place] [address] 12 May, 2013 [facility] [address] [id number] [place] [address] 12 May, 2013 [facility] [address] [id number] [place] [address] 11 May, 2013 [facility] [address] [id number] [place] [address] 11 May, 2013 [facility] [address] [id number] [place] [address] Apr, [facility] [address] [id number] [place] [address] Apr, [facility] [address] [id number] [place] [address] Apr, [facility] [address] [id number] [place] [address] Apr, [facility] [place] [facility] [address] [id number] [place] [address] Aug, [facility] [place] [facility] [address] [id number] [place] [address] Aug, [facility] [place] [facility] [address] [id number] [place] [address] Aug, [facility] [address] [id number] [place] [address] 05 Aug, 2012 [facility] [place] [facility] [address] [id number] [place] [address] Jul, [facility] [place] [facility] [address] [id number] [place] [address] Jun, [facility] [address] [id number] [place] [address] Jun, [facility] [place] [facility] [address] [id number] [place] [address] Jun, [facility] [address] [facility] [id number] [place] [address] Jun, [facility] [place] [facility] [address] [id number] [place] [address] May, [facility] [place] [facility] [address] [id number] [place] [address] May, [facility] [place] [facility] [address] [id number] [place] [address] May, [facility] [place] [facility] [address] [id number] [place] [address] May, [facility] [place] [facility] [address] [facility] [id number] [place] [address] May, [facility] [place] [facility] [address] [id number] [place] [address] May, [facility] [place] [facility] [address] [id number] [place] [address] May, [facility] [place] [facility] [address] [facility] [id number] [place] [address] Apr, [facility] [place] [facility] [address] [facility] [id number] [place] [address] Apr, [facility] [place] [facility] [address] [facility] [id number] [place] [address] Apr, [facility] [place] [facility] [address] [facility] [id number] [place] [address] Apr, [facility] [place] [facility] [address] [facility] [id number] [place] [address] Apr, [facility] [place] [facility] [id number] [place] [address] Apr, [facility] [place] [facility] [address] [facility] [id number] [place] [address] Apr, [facility] [place] [facility] [address] [id number] [place] [address] Mar, [facility] [place] [facility] [address] [facility] [id number] [place] [address] Mar, [facility] [place] [facility] [address] [facility] [id number] [place] [address] Mar, [facility] [place] [facility] [address] [facility] [id number] [place] [address] Mar, [facility] [place] [facility] [address] [facility] [id number] [place] [address] Mar, [facility] [place] [facility] [address] [facility] [id number] [place] [address] Mar, [facility] [place] [facility] [address] [id number] [place] [address] Mar, [facility] [place] [facility] [address] [id number] [place] [address] Mar, [facility] [place] [facility] [address] [id number] [place] [address] Mar, [facility] [place] [facility] [address] [id number] [place] [address] Mar, [facility] [place] [facility] [address] [id number] [place] [address] Mar, [facility] [place] [facility] [address] [id number] [place] [address] Mar, [facility] [place] [facility] [address] [id number] [place] [address] Feb, [facility] [place] [facility] [address] [id number] [place] [address] Jan, [facility] [place] [facility] [address] [id number] [place] [address] Jan, [facility] [place] [facility] [address] [id number] [place] [address] Jan, [facility] [place] [facility] [address] [id number] [place] [address] Jan, [facility] [place] [facility] [address] [id number] [place] [address] Jan, [facility] [place] [facility] [address] [id number] [place] [address] Dec, [facility] [place] [facility] [address] [id number] [place] [address] Dec, [facility] [place] [facility] [address] [id number] [place] [address] Nov, [facility] [place] [facility] [address] [id number] [place] [address] Nov, [facility] [place] [facility] [address] [id number] [place] [address] Nov, [facility] [address] [id number] [place] [address] October, [facility] [place] [facility] [address] [id number] [place] [address] October, [facility] [address] [id number] [place] [address] October, [facility] [address] [id number] [place] [address] October, [facility] [address] [id number] [place] [address] October, [facility] [address] [id number] [place] [address] October, [facility] [address] [id number] [place] [address] October, [facility] [address] [id number] [place] [address] Sep, [facility] [place] [facility] [address] [id number] [place] [address] Sep, [facility] [place] [facility] [address] [id number] [place] [address] Sep, [facility] [place] [facility] [address] [id number] [place] [address] Sep, [facility] [place] [facility] [address] [id number] [place] [address] 24 Sep, 2011 [facility] [place] [facility] [address] [id number] [place] [address] 19 Sep, 2011 [facility] [place] [facility] [address] [id number] [place] [address] 17 Sep, 2011 [facility] [place] [facility] [address] [id number] [place] [address] 16 Sep, 2011 [facility] [place] [facility] [address] [id number] [place] [address] 16 Sep, 2011 [facility] [address] [id number] [place] [address] 14 Sep, 2011 [facility] [place] [facility] [address] [id number] [place] [address] 13 Sep, 2011 [facility] [place] [facility] [address] [id number] [place] [address] 10 Sep, 2011 [facility] [place] [facility] [address] [id number] [place] [address] 09 Sep, 2011 [facility] [place] [facility] [address] [id number] [place] [address] 27 Aug, 2011 [facility] [place] [facility] [address] [id number] [place] [address] 12 Aug, 2011 [facility] [place] [facility] [address] [id number] [place] [address] 08 Aug, 2011 [facility] [place] [facility] [address] [id number] [place] [address] 06 Aug, 2011 [facility] [place] [facility] [address] [id number] [place] [address] 28 Jul, 2011 [facility] [place] [facility] [address] [facility] [id number] [place] [address] 22 Jul, 2011 [facility] [place] [facility] [address] [id number] [place] [address] 16 Jul, 2011 [facility] [place] [facility] [address] [id number] [place] [address] 15 Jul, 2011 [facility] [place] [facility] [address] [id number] [place] [address] 14 Jul, 2011 [facility] [place] [facility] [address] [id number] [place] [address] 10 Jul, 2011 [facility] [place] [facility] [address] [id number] [place] [address] Jun, [facility] [address] [id number] [place] [address] Jun, [facility] [place] [facility] [address] [id number] [place] [address] Jun, [facility] [place] [facility] [address] [id number] [place] [address] Jun, [facility] [place] [facility] [address] [id number] [place] [address] Jun, [facility] [place] [facility] [address] [id number] [place] [address] May, [facility] [place] [facility] [address] [id number] [place] [address] May, [facility] [place] [facility] [address] [id number] [place] [address] May, [facility] [place] [facility] [address] [id number] [place] [address] May, [facility] [place] [facility] [address] [id number] [place] [address] May, [facility] [place] [facility] [address] [id number] [place] [address] May, [facility] [place] [facility] [address] [id number] [place] [address] May, [facility] [place] [facility] [address] [id number] [address] Apr, [facility] [place] [facility] [address] [id number] [place] [address] Apr, [facility] [place] [facility] [address] [id number] [place] [address] 07 Apr, 2011 [facility] [place] [facility] [address] [id number] [place] [address] 07 Apr, 2011 [facility] [place] [facility] [address] [id number] [place] [address] Apr, [facility] [place] [facility] [address] [id number] [place] [address] Apr, [facility] [place] [facility] [address] [id number] [place] [address] Mar, [facility] [place] [facility] [address] [id number] [place] [address] Mar, [facility] [place] [facility] [address] [id number] [place] [address] Mar, [facility] [place] [facility] [address] [id number] [place] [address] Mar, [facility] [place] [facility] [address] [id number] [place] [address] Jan, [facility] [place] [facility] [address] [id number] [place] [address] Dec, [facility] [place] [facility] [address] [id number] [place] [address] Dec, [facility] [place] [facility] [address] [id number] [place] [address] October, [facility] [place] [facility] [address] [facility] [id number] [place] [address] Sep, [facility] [place] [facility] [address] [id number] [place] [address] 14 Sep, 2010 [facility] [place] [facility] [address] [id number] [place] [address] 17 Jul, 2010 [facility] [place] [facility] [address] [id number] [place] [address] 16 Jul, 2010 [facility] [place] [facility] [address] [id number] [place] [address] May, [facility] [place] [facility] [address] [id number] [place] [address] May, [facility] [place] [facility] [address] [id number] [place] [address] 08 May, 2010 [facility] [place] [facility] [address] [id number] [place] [address] May, [facility] [place] [facility] [address] [id number] [place] [address] Apr, [facility] [place] [facility] [address] [id number] [place] [address] Apr, [facility] [place] [facility] [address] [id number] [place] [address] Apr, [facility] [place] [facility] [address] [id number] [place] [address] Apr, [facility] [address] [id number] [place] [address] Apr, [facility] [place] [facility] [address] [id number] [place] [address] Mar, [facility] [place] [facility] [address] [id number] [place] [address] 14 Mar, 2010 [facility] [place] [facility] [address] [id number] [place] [address] Mar, [facility] [place] [facility] [address] [id number] [place] [address] Mar, [facility] [place] [facility] [address] [id number] [place] [address] Jan, [facility] [place] [facility] [address] [id number] [place] [address] 15 Dec, 2009 [facility] [place] [facility] [address] [id number] [place] [address] 10 Sep, 2009 [facility] [place] [facility] [address] [id number] [place] [address] 08 May, 2009 [facility] [place] [facility] [address] [id number] [address] May, [facility] [id number] [address] May, [facility] [id number] [address] Apr, [facility] [id number] [address] Apr, [facility] [id number] [place] [address] Apr, [facility] [id number] [place] [address] Apr, [facility] [id number] [place] [address] Apr, [facility] [id number] [place] [address] Mar, [facility] [id number] [address] Mar, [facility] [id number] [address] Jul, IMMUNIZATIONS No Known Immunizations SOCIAL HISTORY [...] and replaced VC 10/2018 Hospitalization History Cellulitis-[facility] 12/20/15 [facility] History [facility]- Abd pain 03/07/2017 [facility]- Abd pain 03/14/2017 Hospitalization History [facility]- No bowel movement, rash 04/13/2017 [facility] History [facility]- Abd pain r/t kidney surgery on 04/10/17 04/17/2017 Hospitalization History [facility]- Abd pain r/t kidney surgery on 04/10/17 04/18/2017 Hospitalization History [facility]- Lower abd pain 04/30/2017 Hospitalization History [facility]- Cannot urinate 05/30/2017 Hospitalization History [facility]- Pancreatitis Sx 06/29/2017 Hospitalization History [facility]- Stomach pain 07/22/2017 Hospitalization History [facility]- Left side pain 08/12/2017 Hospitalization History [facility]- Incision site infection 08/30/2017 Hospitalization History [facility]- Post Op Seroma/Hematoma Left Abdomen. Discharged 09/04/17- Dr Daniel 09/02/2017 Hospitalization History [facility]- Right shoulder and back pain 10/22/2017 Hospitalization History [facility]- Shoulder/Back pain 11/11/2017 Hospitalization History [facility]- Right shoulder blade pain 12/04/2017 Hospitalization History [facility]- C-Diff 12/13/2017 Hospitalization History C diff et MRSA 12/27/2017 Hospitalization History Bowel abduction [facility] 10/2018
--- OUTSIDE RECORDS SUMMARY | 2019-01-07 11:12 | XMS REPORT ---
Author Author BHUPENDRA Ford Organization [facility] Address [address] [place] [address] Care Team Providers Care Musical Instrument Supervisor Name Role Phone BHUPENDRA Ford Unavailable PROBLEMS Type Condition ICD9-CM Code HKL78-PD Code Onset Dates Condition Status SNOMED Code Problem Nodule of left lung R91.1 Active 723281215 Problem History of renal cell carcinoma Z85.528 Active 605784312 Problem Hyperlipidemia, mixed E78.2 Active 741746346 Problem Right carpal tunnel syndrome G56.01 Active 089338593479931 Problem Chronic fatigue R53.82 Active 39519370 Problem Moderate episode of recurrent major depressive disorder F33.1 Active 758789945 Problem Chronic pancreatitis K86.1 Active 791134932 Problem Morbid (severe) obesity due to excess calories E66.01 Active 014934226 Problem Polydipsia R63.1 Active 04939821 Problem Asthma J45.909 Active 136282079 Problem Trichotillomania F63.3 Active 46870645 Problem Atelectasis J98.11 Active 03378571 Problem Restless leg syndrome G25.81 Active 99451692 Problem Chronic post-traumatic stress disorder (PTSD) F43.12 Active 680063410 Problem Intestinal malabsorption, unspecified K90.9 Active 05911022 Problem Primary osteoarthritis of right knee M17.11 Active 882067405927655 Problem Obesities, morbid E66.01 Active 235601632 Problem Conflict between patient and family Z63.9 Active 12146622 Problem FH: polycystic ovary Z84.2 Active 859783201 Problem Observed sleep apnea G47.30 Active 66964544 Problem Hirsuties L68.0 Active 569212175 Problem Chronic tension-type headache, intractable G44.221 Active 848538710 Problem Menopausal symptoms N95.1 Active 07970981 Problem Morbid obesity E66.01 Active 704142856 Problem Social phobia, generalized F40.11 Active 48740647 Problem Social phobia, unspecified F40.10 Active 03110021 ALLERGIES No Information ENCOUNTERS Encounter Location Date Diagnosis [facility] [id number] [place] [address] Jan, [facility] [id number] [place] [address] Dec, [facility] [address] [address] Dec, [facility] [address] [address] Dec, [place] [address] [address] Dec, Hyperlipidemia, mixed E78.2 ; History of renal cell carcinoma Z85.528 and Restless leg syndrome G25.81 [place] [address] [address] Dec, Hyperlipidemia, mixed E78.2 ; Chronic pancreatitis K86.1 ; Restless leg syndrome G25.81 ; Nodule of left lung R91.1 ; History of renal cell carcinoma Z85.528 ; Leg swelling M79.89 ; Morbid obesity E66.01 and Observed sleep apnea G47.30 [facility] [id number] [place] [address] Nov, [facility] [id number] [place] [address] Nov, [facility] [id number] [place] [address] Nov, [facility] [id number] [place] [address] Nov, Other acute postprocedural pain G89.18 and Unspecified abdominal pain R10.9 [facility] [id number] [place] [address] October, [facility] [address] [place] [address] October, Social phobia, generalized F40.11 ; Conflict between patient and family Z63.9 and Morbid obesity E66.01 [facility] [address] [facility] [id number] [address] October, [facility] [address] [address] October, [facility] [address] [address] October, [facility] [address] [address] October, [address] [address] October, [facility] [address] [address] October, [address] [address] October, [facility] [id number] [address] October, Morbid obesity E66.01 ; Routine gynecological examination Z01.419 and Menopausal symptoms N95.1 [facility] [id number] [address] October, [address] [address] Sep, [facility] [address] [facility] [id number] [address] Sep, [facility] [address] [address] Sep, [facility] [address] [address] Sep, [facility] [id number] [address] Sep, Lower extremity edema R60.0 [facility] [address] [address] Sep, [facility] [address], [place] [address] Sep, Lower extremity edema R60.0 and Morbid obesity E66.01 [facility] [address] [address] Sep, [facility] [address], [place] [address] Sep, [facility] [address] [place] [address] Aug, [facility] [address] [place] [address] Aug, Obesities, morbid E66.01 and Morbid obesity E66.01 [facility] [address] [address] Aug, [facility] [address] [address] Jul, [facility] [address], [place] [address] Jul, [facility] [address], [place] [address] Jul, [facility] [address], [place] [address] Jul, [facility] [id number] [address] Jul, Numbness of right hand R20.0 [facility] [address], [place] [address] Jul, Numbness of right hand R20.0 [facility] [address], [place] [address] Jul, [facility] [id number] [place] [address] Jul, [facility] [id number] [place] [address] Jul, Right-sided thoracic back pain M54.6 [facility] [id number] [place] [address] Jul, [facility] [id number] [place] [address] Jul, [facility] [address] [address] Jul, [facility] [id number] [place] [address] Jul, [facility] [id number] [place] [address] Jun, [facility] [id number] [place] [address] Jun, Acute pain of right shoulder M25.511 ; Numbness of right hand R20.0 and Trapezius muscle spasm M62.838 [facility] [id number] [place] [address] Jun, [facility] [id number] [place] [address] Jun, [facility] [id number] [place] [address] Jun, Cough R05 ; BMI 50.0-59.9, adult Z68.43 and Morbid obesity E66.01 [facility] [id number] [place] [address] Jun, [facility] [id number] [place] [address] Jun, [facility] [address] [place] [address] 13 Jun, 2018 BMI 45.0-49.9, adult Z68.42 and Acute non-recurrent maxillary sinusitis J01.00 [facility] [id number] [place] [address] 09 Jun, 2018 Acute sinusitis J01.90 ; Dysuria R30.0 and BMI 45.0-49.9, adult Z68.42 [facility] [address] [address] Jun, [facility] [address] [address] Jun, [facility] [address] [address] May, [facility] [address] [address] May, [facility] [address] [address] May, [facility] [address] [address] May, [facility] [id number] [place] [address] May, [facility] [id number] [place] [address] Apr, Generalized social phobia F40.11 ; Trichotillomania F63.3 ; Chronic post-traumatic stress disorder (PTSD) F43.12 and BMI 45.0-49.9, adult Z68.42 [facility] [address] [address] Apr, [facility] [id number] [place] [address] Apr, Chronic tension-type headache, intractable G44.221 [facility] [address] [place] [address] Apr, [facility] [address] [place] [address] Mar, [facility] [id number] [place] [address] Mar, BMI 45.0-49.9, adult Z68.42 and Pimples R23.8 [facility] [id number] [place] [address] Mar, [facility] [id number] [place] [address] Mar, [facility] [id number] [place] [address] Mar, Decreased urination R34 ; Chronic fatigue R53.82 ; Peripheral edema R60.9 ; Diarrhea, unspecified type R19.7 ; Non-intractable vomiting with nausea, unspecified vomiting type R11.2 ; BMI 45.0-49.9, adult Z68.42 and Chronic post-traumatic stress disorder (PTSD) F43.12 [place] [id number] [place] [address] Mar, Intestinal malabsorption, unspecified K90.9 ; Diarrhea, unspecified R19.7 ; Urinary urgency R39.15 ; Rectal bleeding K62.5 and Decreased urine output R34 [place] [id number] [place] [address] Mar, Decreased urine output R34 [place] [address] [place] [address] Mar, Rectal bleeding K62.5 [place] [id number] [place] [address] Mar, Rectal bleeding K62.5 [place] [id number] [place] [address] Mar, Urinary urgency R39.15 [place] [address] [place] [address] Mar, Urinary urgency R39.15 [facility] [id number] [place] [address] Mar, Primary osteoarthritis of right knee M17.11 and BMI 45.0-49.9, adult Z68.42 [facility] [id number] [place] [address] Mar, [facility] [id number] [place] [address] Feb, Left upper arm pain M79.622 [place] [id number] [place] [address] Feb, [place] [id number] [place] [address] Jan, Acute pain of right knee M25.561 ; Right upper quadrant abdominal pain R10.11 and BMI 45.0-49.9, adult Z68.42 [place] [id number] [place] [address] Jan, [place] [id number] [place] [address] Jan, [facility] [id number] [place] [address] Dec, [facility] [id number] [place] [address] Dec, Intestinal malabsorption, unspecified K90.9 and Diarrhea, unspecified R19.7 [facility] [id number] [place] [address] Dec, [facility] [address] [place] [address] Dec, Strep throat J02.0 ; Intestinal malabsorption, unspecified K90.9 ; Diarrhea, unspecified R19.7 ; Postoperative seroma involving digestive system after non-digestive system procedure K91.873 ; Hyperlipidemia, mixed E78.2 and BMI 45.0-49.9, adult Z68.42 [facility] [address] [place] [address] Dec, [facility] [id number] [place] [address] Dec, Nausea R11.0 [facility] [id number] [place] [address] Dec, [facility] [id number] [place] [address] Dec, Sore throat J02.9 ; Strep throat J02.0 and BMI 45.0-49.9, adult Z68.42 [facility] [id number] [place] [address] Dec, [facility] [id number] [place] [address] Dec, [facility] [id number] [place] [address] Dec, [facility] [id number] [place] [address] Dec, [facility] [address], [place] [address] Dec, [facility] [address] [address] Dec, [facility] [address] [place] [address] Dec, [facility] [id number] [place] [address] Dec, [facility] [address], [place] [address] Dec, Clostridium difficile colitis A04.72 ; Intractable vomiting with nausea, unspecified vomiting type R11.2 and BMI 45.0-49.9, adult Z68.42 [facility] [id number] [place] [address] Dec, [facility] [id number] [place] [address] Nov, [facility] [id number] [place] [address] Nov, [facility] [id number] [place] [address] Nov, [facility] [id number] [place] [address] Nov, [facility] [id number] [place] [address] Nov, [facility] [id number] [place] [address] Nov, Hyperlipidemia, mixed E78.2 [facility] [id number] [place] [address] Nov, Acute suppurative otitis media of right ear without spontaneous rupture of tympanic membrane, recurrence not specified H66.001 and BMI 45.0-49.9, adult Z68.42 [facility] [id number] [place] [address] Nov, Hyperlipidemia, mixed E78.2 [facility] [id number] [place] [address] Nov, [facility] [id number] [place] [address] Nov, [facility] [id number] [place] [address] Nov, Nodule of left lung R91.1 [facility] [id number] [place] [address] Nov, Medicare annual wellness visit, initial Z00.00 [...] adult Z68.42 and Encounter for immunization Z23 [place] [id number] [place] [address] October, [place] [id number] [place] [address] October, Nodule of left lung R91.[address] [address] October, Nodule of left lung R91.1 [place] [id number] [place] [address] October, Recurrent major depressive disorder, in partial remission F33.41 ; Restless leg syndrome G25.81 ; Generalized social phobia F40.11 ; Chronic post-traumatic stress disorder (PTSD) F43.12 ; BMI 45.0-49.9, adult Z68.42 and Trichotillomania F63.3 [place] [id number] [place] [address] October, [place] [id number] [place] [address] Sep, Chronic fatigue R53.82 and BMI 45.0-49.9, adult Z68.42 [place] [id number] [place] [address] Aug, [place] [id number] [place] [address] Jul, Restless leg syndrome G25.81 and B12 deficiency E53.8 [facility] [address], [place] [address] Jul, [facility] [id number] [place] [address] Jul, [facility] [id number] [place] [address] Jun, [place] [id number] [place] [address] Jun, Fatigue, unspecified type R53.83 ; History of renal cell carcinoma Z85.528 ; Chronic pancreatitis K86.1 ; Restless leg syndrome G25.81 ; Dark urine R82.99 and BMI 45.0-49.9, adult Z68.42 [place] [id number] [place] [address] Jun, [place] [id number] [place] [address] Jun, [place] [id number] [place] [address] Jun, [place] [id number] [place] [address] Jun, [place] [address] [place] [address] May, Chronic post-traumatic stress disorder (PTSD) F43.12 ; Moderate episode of recurrent major depressive disorder F33.1 ; Trichotillomania F63.3 and Generalized social phobia F40.11 [place] [address] [place] [address] May, [place] [id number] [place] [address] May, Chronic post-traumatic stress disorder (PTSD) F43.12 ; Moderate episode of recurrent major depressive disorder F33.1 ; Trichotillomania F63.3 and Generalized social phobia F40.11 [place] [address] [address] May, Hyperlipidemia, mixed E78.2 ; Morbid (severe) obesity due to excess calories E66.01 ; Chronic post-traumatic stress disorder (PTSD) F43.12 ; Moderate episode of recurrent major depressive disorder F33.1 ; Trichotillomania F63.3 and Generalized social phobia F40.11 [place] [id number] [place] [address] 30 Apr, 2017 [place] [id number] [place] [address] Apr, Hyperlipidemia, mixed E78.2 ; Morbid (severe) obesity due to excess calories E66.01 ; Chronic post-traumatic stress disorder (PTSD) F43.12 ; Moderate episode of recurrent major depressive disorder F33.1 ; Trichotillomania F63.3 and Generalized social phobia F40.11 [place] [id number] [place] [address] Apr, Trichotillomania F63.3 ; Generalized social phobia F40.11 ; Chronic post-traumatic stress disorder (PTSD) F43.12 and Moderate episode of recurrent major depressive disorder F33.1 [place] [address] [address] Apr, [place] [id number] [place] [address] Apr, [place] [address] [place] [address] Mar, Moderate episode of recurrent major depressive disorder F33.1 ; Trichotillomania F63.3 ; Chronic post-traumatic stress disorder (PTSD) F43.12 ; Generalized social phobia F40.11 and Restless leg syndrome G25.81 [place] [address] [place] [address] Mar, [place] [address] [address] Mar, [facility] [id number] [place] [address] Feb, Left kidney mass N28.89 [facility] [id number] [place] [address] Jan, [facility] [id number] [place] [address] Dec, Polydipsia R63.1 ; Chronic pancreatitis K86.1 and Fatigue, unspecified type R53.83 [facility] [id number] [place] [address] Nov, [facility] [id number] [place] [address] Nov, [facility] [id number] [place] [address] Nov, Headache around the eyes R51 [facility] [id number] [place] [address] Nov, [facility] [id number] [place] [address] October, STD exposure Z20.2 [facility] [id number] [place] [address] October, STD exposure Z20.2 [facility] [id number] [place] [phone] October, Chronic post-traumatic stress disorder (PTSD) F43.12 ; Generalized social phobia F40.11 ; Trichotillomania F63.3 and Restless leg syndrome G25.81 [facility] [id number] [phone] October, [facility] [id number] [place] [phone] Sep, [facility] [id number] [place] [phone] Aug, [facility] [id number] [place] [phone] Aug, [facility] [id number] [place] [phone] Aug, Neck mass R22.1 [place] [address] [phone] Aug, Atelectasis J98.11 [facility] [id number] [place] [phone] Jul, Hyperlipidemia, mixed E78.2 ; Atypical pneumonia J18.9 and Neck mass R22.1 [facility] [id number] [place] [phone] Jul, Hemoptysis R04.2 [facility] [id number] [place] [phone] 08 Jul, 2016 Acute non-recurrent pansinusitis J01.40 ; Hemoptysis R04.2 ; Polydipsia R63.1 and Malaise R53.81 [facility] [address] [place] [place] [id number] [place] [phone] May, Other viral agents as the cause of diseases classified elsewhere B97.89 and Acute upper respiratory infection, unspecified J06.9 [facility][note 3] [id number] [place] [phone] Mar, Nausea R11.0 [facility] [address] [place] [place] [id number] [place] [phone] Dec, Hives L50.9 [facility] [id number] [place] [phone] Dec, [facility] [address] [place] [place] [id number] [place] [phone] Dec, 2016 Cutaneous abscess of limb, unspecified L02.419 ; Cellulitis of unspecified part of limb L03.119 ; Encounter for incision and drainage procedure Z01.89 and Encounter for recheck of abscess following incision and drainage Z09 [facility]ALK IN [facility] [address] [address] 09 Dec, 2015 Abscess of leg, right L02.415 [place] [id number] [place] [address] 08 Dec, 2015 Cellulitis of unspecified part of limb L03.119 and Cutaneous abscess of limb, unspecified L02.419 [place] [id number] [place] [address] Dec, [place] [id number] [place] [address] Dec, [facility] IN [place] [id number] [place] [address] Aug, [place] [id number] [place] [address] Aug, [facility] IN [place] [id number] [place] [address] 04 Jul, 2015 Pain in unspecified wrist M25.539 and Back pain, thoracic M54.6 [facility] IN [place] [id number] [place] [address] Jun, Strain of right wrist, initial encounter S66.911A [place] [address] [place] [address] 11 Jun, 2015 Chronic pancreatitis, unspecified pancreatitis type K86.1 ; Hirsuties L68.0 ; Morbid (severe) obesity due to excess calories E66.01 ; Chronic pancreatitis K86.1 and Asthma J45.909 [place] [address], [place] [address] 14 May, 2015 [place] [id number] [place] [address] May, Hyperlipidemia, mixed E78.2 and Muscle spasm of back M62.830 [facility] [address] [address] Apr, [facility] [address] [address] Apr, Torticollis M43.6 [facility] [address] [address] Apr, Right-sided thoracic back pain M54.6 [facility] [address] [address] Mar, Rash R21 [facility] [address] [address] Mar, [facility] [address] [address] Jan, [facility] [address] [address] Dec, [facility] [address] [address] Dec, Urinary frequency 788.41 and Nocturia more than twice per night 788.43 [facility] [id number] [place] [address] Nov, [facility] [id number] [place] [address] Nov, [facility] [address] [address] Nov, Abdominal pain 789.00 [facility] [id number] [place] [address] October, TDAP DX V06.1 [facility] [address] [address] October, [facility] [place] [id number] [address] October, Disturbance of skin sensation 782.0 ; Wrist pain, right 719.43 ; Hyperlipidemia 272.4 and Skin lesion of face 709.9 [facility] [place] [address], [place] [address] Sep, [facility] [address] [facility] [id number] [place] [address] Sep, [facility] [address] [facility] [id number] [address] Aug, [facility] [id number] [place] [address] Aug, [facility] [id number] [address] Aug, [facility] [id number] [address] Aug, [facility] [address], [place] [address] Aug, [facility] [address], [place] [address] 16 Aug, 2014 [facility] [address], [place] [address] Aug, [facility] [id number] [address] 14 Aug, 2014 [facility] [id number], [place] [address] Aug, [facility] [address], [place] [address] Aug, [facility] [address], [place] [address] Aug, [facility] [id number] [address] Aug, [facility] [place] [facility] [address] [id number] [place] [address] Aug, [facility] [place] [facility] [address] [id number] [place] [address] Aug, [facility] [place] [facility] [address] [id number] [place] [address] Jul, 2014 [facility] [place] [facility] [address] [id number] [place] [address] Jul, 2014 [facility] [place] [facility] [address] [id number] [place] [address] Jul, 2014 [facility] [place] [facility] [address] [id number] [place] [address] Jul, 2014 [facility] [place] [facility] [address] [id number] [place] [address] Jul, [facility] [place] [facility] [address] [id number] [place] [address] Jul, [facility] [place] [facility] [address] [id number] [place] [address] Jun, [facility] [place] [facility] [address] [id number] [place] [address] Jun, [facility] [place] [facility] [address] [id number] [place] [address] Jun, [facility] [place] [facility] [address] [id number] [place] [address] Jun, [facility] [place] [facility] [address] [id number] [place] [address] Jun, [facility] [place] [facility] [address] [id number] [place] [address] Jun, [facility] [place] [facility] [address] [id number] [place] [address] Jun, [facility] [place] [facility] [address] [id number] [place] [address] 15 Jun, 2014 [facility] [place] [facility] [address] [id number] [place] [address] May, [facility] [place] [facility] [address] [id number] [place] [address] May, [facility] [place] [facility] [address] [id number] [place] [address] May, [facility] [place] [facility] [address] [id number] [place] [address] May, [facility] [place] [facility] [address] [id number] [place] [address] May, [facility] [place] [facility] [address] [id number] [place] [address] May, [facility] [place] [facility] [address] [id number] [place] [address] May, [facility] [place] [facility] [address] [id number] [place] [address] May, [facility] [place] [facility] [address] [id number] [place] [address] May, [facility] [place] [facility] [address] [id number] [place] [address] May, [facility] [place] [facility] [address] [id number] [place] [address] May, [facility] [place] [facility] [address] [id number] [place] [address] May, [facility] [place] [facility] [address] [id number] [place] [address] Apr, [facility] [place] [facility] [address] [id number] [place] [address] Apr, [facility] [place] [facility] [address] [id number], [place] [address] Apr, [facility] [place] [facility] [address] [id number] [place] [address] Apr, [facility] [place] [facility] [address] [id number] [place] [address] Apr, [facility] [place] [facility] [address] [id number] [place] [address] Apr, [facility] [place] [facility] [address] [id number] [place] [address] Apr, [facility] [place] [facility] [address] [id number] [place] [address] Apr, [facility] [place] [facility] [address] [id number] [place] [address] Apr, [facility] [place] [facility] [address] [id number] [place] [address] Apr, [facility] [place] [facility] [address] [id number] [place] [address] Apr, [facility] [place] [facility] [address] [id number] [place] [address] Apr, [facility] [place] [facility] [address] [id number] [place] [address] Mar, [facility] [place] [facility] [address] [id number] [place] [address] Mar, [facility] [place] [facility] [address] [id number], [place] [address] Mar, [facility] [place] [facility] [address] [id number], [place] [address] Mar, [facility] [place] [facility] [address] [id number], [place] [address] Feb, [facility] [place] [facility] [address] [id number], [place] [address] 10 Feb, 2014 [facility] [place] [facility] [address] [id number] [place] [address] 05 Feb, 2013 [facility] [place] [facility] [address] [id number] [place] [address] Feb, 2013 [facility] [place] [facility] [address] [id number] [place] [address] Feb, 2013 [facility] [place] [facility] [address] [id number] [place] [address] Feb, 2013 [facility] [place] [facility] [address] [id number] [place] [address] Jan, [facility] [place] [facility] [address] [id number] [place] [address] Jan, [facility] [place] [facility] [address] [id number] [place] [address] Jan, [facility] [place] [facility] [address] [id number] [place] [address] Jan, [facility] [place] [facility] [address] [id number] [place] [address] Jan, [facility] [place] [facility] [address] [id number] [place] [address] Jan, [facility] [place] [facility] [address] [id number] [place] [address] Jan, [facility] [place] [facility] [address] [id number] [place] [address] Jan, [facility] [place] [facility] [address] [id number] [place] [address] Jan, [facility] [place] [facility] [address] [id number] [place] [address] Jan, [facility] [place] [facility] [address] [id number] [place] [address] Jan, [facility] [place] [facility] [address] [id number] [place] [address] Jan, [facility] [place] [facility] [address] [id number] [place] [address] Jan, [facility] [place] [facility] [address] [id number] [place] [address] Jan, [facility] [place] [facility] [address] [id number] [place] [address] Dec, [facility] [place] [facility] [address] [id number] [place] [address] Dec, [facility] [place] [facility] [address] [id number] [place] [address] Dec, [facility] [place] [facility] [address] [id number] [place] [address] Dec, [facility] [place] [facility] [address] [id number] [place] [address] Nov, [facility] [place] [facility] [address] [id number] [place] [address] Nov, [facility] [place] [facility] [address] [id number] [place] [address] Nov, [facility] [place] [facility] [address] [id number] [place] [address] Nov, [facility] [place] [facility] [address] [id number] [place] [address] Nov, [facility] [place] [facility] [address] [id number] [place] [address] October, [facility] [place] [facility] [address] [id number] [place] [address] October, [facility] [place] [facility] [address] [id number] [place] [address] October, [facility] [place] [facility] [address] [id number] [place] [address] October, [facility] [place] [facility] [address] [id number] [place] [address] 15 Oct, 2013 [facility] [address] [id number] [place] [address] October, [facility] [place] [facility] [address] [id number] [place] [address] October, [facility] [address] [id number] [place] [address] October, [facility] [place] [facility] [address] [id number] [place] [address] October, [facility] [address] [id number] [place] [address] October, [facility] [address] [id number] [place] [address] October, [facility] [address] [id number] [place] [address] October, [facility] [address] [id number] [place] [address] October, [facility] [place] [facility] [address] [id number] [place] [address] October, [facility] [address] [id number] [place] [address] Sep, [facility] [place] [facility] [address] [id number] [place] [address] Sep, [facility] [place] [facility] [address] [id number] [place] [address] Sep, [facility] [place] [facility] [address] [id number] [place] [address] Sep, [facility] [place] [facility] [address] [id number] [place] [address] Sep, [facility] [place] [facility] [address] [id number] [place] [address] Sep, [facility] [place] [facility] [address] [id number] [place] [address] Sep, [facility] [place] [facility] [address] [id number] [place] [address] Sep, [facility] [place] [facility] [address] [id number] [place] [address] Sep, [facility] [place] [facility] [address] [id number] [place] [address] Sep, [facility] [place] [facility] [address] [id number] [place] [address] Sep, [facility] [place] [facility] [address] [id number] [place] [address] Sep, [facility] [place] [facility] [address] [id number] [place] [address] Sep, [facility] [place] [facility] [address] [id number] [place] [address] Sep, [facility] [place] [facility] [address] [id number] [place] [address] Sep, [facility] [place] [facility] [address] [id number] [place] [address] Aug, [facility] [place] [facility] [address] [id number] [place] [address] Aug, [facility] [place] [facility] [address] [id number] [place] [address] Aug, [facility] [place] [facility] [address] [id number] [place] [address] Aug, [facility] [place] [facility] [address] [id number] [place] [address] Jul, [facility] [place] [facility] [address] [id number] [place] [address] Jul, [facility] [place] [facility] [address] [id number], [place] [address] 06 Jul, 2013 [facility] [address] [id number] [place] [address] Jul, [facility] [address] [facility] [id number] [place] [address] 15 Jun, 2013 [facility] [address] [id number] [place] [address] Jun, [facility] [address] [id number] [place] [address] Jun, [facility] [address] [id number] [place] [address] Jun, [facility] [address] [facility] [id number] [place] [address] Jun, [facility] [address] [facility] [id number] [place] [address] Jun, [facility] [address] [facility] [id number] [place] [address] Jun, [facility] [address] [facility] [id number] [place] [address] Jun, [facility] [address] [facility] [id number] [place] [address] May, [facility] [address] [id number] [place] [address] May, [facility] [address] [facility] [id number], [place] [address] 18 May, 2013 [facility] [address] [id number] [place] [address] 18 May, 2013 [facility] [address] [facility] [id number] [place] [address] 17 May, 2013 [facility] [address] [id number] [place] [id number] 17 May, 2013 [facility] [place] [facility] [address] [id number] [place] [address] 17 May, 2013 [facility] [address] [id number] [place] [address] 17 May, 2013 [facility] [place] [facility] [address] [id number] [place] [address] 16 May, 2013 [facility] [address] [id number] [place] [address] 16 May, 2013 [facility] [place] [facility] [address] [id number] [place] [address] 14 May, 2013 [facility] [address] [id number] [place] [address] 14 May, 2013 [facility] [place] [facility] [address] [id number] [place] [address] 13 May, 2013 [facility] [place] [facility] [address] [id number] [place] [address] 13 May, 2013 [facility] [address] [id number] [place] [address] 12 May, 2013 [facility] [place] [facility] [address] [id number] [place] [address] 12 May, 2013 [facility] [address] [id number] [place] [address] 11 May, 2013 [facility] [place] [facility] [address] [id number] [place] [address] 11 May, 2013 [facility] [place] [facility] [address] [id number] [place] [address] 26 Apr, 2013 [facility] [place] [facility] [address] [id number] [place] [address] Apr, [facility] [place] [facility] [address] [id number] [place] [address] Apr, [facility] [place] [facility] [address] [id number] [place] [address] Apr, [facility] [address] [id number] [place] [address] Aug, [facility] [place] [facility] [address] [id number] [place] [address] Aug, [facility] [place] [facility] [address] [id number] [place] [address] 06 Aug, 2012 [facility] [place] [facility] [address] [id number] [place] [address] 05 Aug, 2012 [facility] [place] [facility] [address] [id number] [place] [address] Jul, [facility] [place] [facility] [address] [id number] [place] [address] Jun, [facility] [place] [facility] [address] [id number] [place] [address] Jun, [facility] [place] [facility] [address] [id number] [place] [address] Jun, [facility] [place] [facility] [address] [id number] [place] [address] Jun, [facility] [place] [facility] [address] [id number] [place] [address] May, [facility] [place] [facility] [address] [id number], [place] [address] May, [facility] [place] [facility] [address] [id number], [place] [address] 05 May, 2012 [facility] [place] [facility] [address] [id number] [place] [address] May, [facility] [place] [facility] [address] [id number] [place] [address] May, [facility] [place] [facility] [address] [id number] [place] [address] May, [facility] [place] [facility] [address] [id number] [place] [address] May, [facility] [place] [facility] [address] [id number] [place] [address] Apr, [facility] [place] [facility] [address] [id number] [place] [address] Apr, [facility] [place] [facility] [address] [id number] [place] [address] Apr, [facility] [place] [facility] [address] [id number] [place] [address] Apr, [facility] [place] [facility] [address] [id number] [place] [address], [place] [address] Apr, [facility] [place] [facility] [address] [id number] [place] [address] Apr, [facility] [place] [facility] [address] [facility] [id number] [place] [address] Apr, [facility] [place] [facility] [address] [id number], [place] [address] Mar, [facility] [place] [facility] [address] [id number] [place] [address] Mar, [facility] [place] [facility] [address] [facility] [id number], [place] [address] Mar, [facility] [place] [facility] [address] [id number] [place] [address] Mar, [facility] [place] [facility] [address] [id number], [place] [address] Mar, [facility] [place] [facility] [address] [id number] [place] [address] Mar, [facility] [place] [facility] [address] [facility] [id number], [place] [address] Mar, [facility] [place] [facility] [address] [id number], [place] [address] Mar, [facility] [place] [facility] [address] [id number] [place] [address] Mar, [facility] [place] [facility] [address] [id number] [place] [address] Mar, [facility] [place] [facility] [address] [id number] [place] [address] Mar, [facility] [place] [facility] [address] [id number] [place] [address] Mar, [facility] [place] [facility] [address] [id number] [place] [address] Feb, [facility] [place] [facility] [address] [id number] [place] [address] Jan, [facility] [place] [facility] [address] [id number] [place] [address] Jan, [facility] [place] [facility] [address] [id number] [place] [address] Jan, [facility] [place] [facility] [address] [id number] [place] [address] Jan, [facility] [place] [facility] [address] [id number] [place] [address] Jan, [facility] [place] [facility] [address] [id number] [place] [address] Dec, [facility] [place] [facility] [address] [id number] [place] [address] Dec, [facility] [place] [facility] [address] [id number] [place] [address] Nov, [facility] [place] [facility] [address] [id number] [place] [address] Nov, [facility] [place] [facility] [address] [id number] [place] [address] Nov, [facility] [place] [facility] [address] [id number] [place] [address] October, [facility] [address] [id number] [place] [address] October, [facility] [place] [facility] [address] [id number] [place] [address] October, [facility] [place] [facility] [address] [id number] [place] [address] October, [facility] [place] [facility] [address] [id number] [place] [address] October, [facility] [place] [facility] [address] [id number] [place] [address] October, [facility] [place] [facility] [address] [id number] [place] [address] October, [facility] [place] [facility] [address] [id number] [place] [address] Sep, [facility] [place] [facility] [address] [id number] [place] [address] Sep, [facility] [place] [facility] [address] [id number] [place] [address] Sep, [facility] [place] [facility] [address] [id number] [place] [address] Sep, [facility] [place] [facility] [address] [id number] [place] [address] 24 Sep, 2011 [facility] [place] [facility] [address] [id number] [place] [address] 19 Sep, 2011 [facility] [place] [facility] [address] [id number] [place] [address] 17 Sep, 2011 [facility] [place] [facility] [address] [id number] [place] [address] 16 Sep, 2011 [facility] [place] [facility] [address] [id number] [place] [address] 16 Sep, 2011 [facility] [place] [facility] [address] [id number] [place] [address] 14 Sep, 2011 [facility] [address] [id number] [place] [address] 13 Sep, 2011 [facility] [place] [facility] [address] [id number] [place] [address] 10 Sep, 2011 [facility] [address] [id number] [place] [address] 09 Sep, 2011 [facility] [place] [facility] [address] [id number] [place] [address] 27 Aug, 2011 [facility] [address] [id number] [place] [address] 12 Aug, 2011 [facility] [address] [facility] [id number] [place] [address] 08 Aug, 2011 [facility] [address] [id number] [place] [address] 06 Aug, 2011 [facility] [address] [id number] [place] [address] 28 Jul, 2011 [facility] [address] [id number] [address] 22 Jul, 2011 [facility] [address] [facility] [id number] [place] [address] 16 Jul, 2011 [facility] [place] [facility] [address] [id number] [place] [address] 15 Jul, 2011 [facility] [address] [id number] [place] [address] 14 Jul, 2011 [facility] [place] [facility] [address] [id number] [place] [address] 10 Jul, 2011 [facility] [place] [facility] [address] [id number] [place] [address] 30 Jun, 2011 [facility] [place] [facility] [address] [id number] [place] [address] 05 Jun, 2011 [facility] [place] [facility] [address] [id number] [place] [address] Jun, [facility] [place] [facility] [address] [id number] [place] [address] Jun, [facility] [place] [facility] [address] [id number] [place] [address] Jun, [facility] [place] [facility] [address] [id number] [place] [address] May, [facility] [place] [facility] [address] [id number] [place] [address] May, [facility] [place] [facility] [address] [id number] [place] [address] May, [facility] [place] [facility] [address] [id number] [place] [address] May, [facility] [place] [facility] [address] [id number] [place] [address] May, [facility] [place] [facility] [address] [id number] [place] [address] May, [facility] [place] [facility] [address] [id number] [place] [address] 05 May, 2011 [facility] [place] [facility] [address] [id number], [place] [address] 15 Apr, 2011 [facility] [place] [facility] [address] [id number], [place] [address] 15 Apr, 2011 [facility] [place] [facility] [address] [id number] [place] [address] Apr, [facility] [place] [facility] [address] [id number] [place] [address] 07 Apr, 2011 [facility] [place] [facility] [address] [id number] [place] [address] Apr, [facility] [place] [facility] [address] [id number] [place] [address] Apr, [facility] [address] [id number] [place] [address] Mar, [facility] [place] [facility] [address] [id number] [place] [address] Mar, [facility] [address] [id number] [place] [address] Mar, [facility] [place] [facility] [address] [id number] [place] [address] Mar, [facility] [address] [id number] [place] [address] Jan, [facility] [place] [facility] [address] [id number] [place] [address] Dec, [facility] [address] [id number] [place] [address] Dec, [facility] [address] [id number] [place] [address] October, [facility] [address] [id number] [place] [address] Sep, [facility] [address] [id number] [place] [address] 14 Sep, 2010 [facility] [address] [id number] [place] [address] Jul, [facility] [address] [id number] [place] [address] Jul, [facility] [place] [facility] [address] [id number] [place] [address] May, [facility] [place] [facility] [address] [id number] [place] [address] May, [facility] [place] [facility] [address] [id number] [place] [address] 08 May, 2010 [facility] [place] [facility] [address] [id number] [place] [address] 06 May, 2010 [facility] [place] [facility] [address] [id number] [place] [address] Apr, [facility] [place] [facility] [address] [id number] [place] [address] Apr, [facility] [place] [facility] [address] [id number] [place] [address] Apr, [facility] [place] [facility] [address] [id number] [place] [address] Apr, [facility] [place] [facility] [address] [id number] [place] [address] Apr, [facility] [place] [facility] [address] [id number] [place] [address] Mar, [facility] [place] [facility] [address] [id number], [place] [address] 14 Mar, 2010 [facility] [place] [facility] [address] [id number] [place] [address] 13 Mar, 2010 [facility] [place] [facility] [address] [facility] [id number], [place] [address] Mar, [facility] [place] [facility] [address] [id number], [place] [address] Jan, [facility] [place] [facility] [address] [id number], [place] [address] 15 Dec, 2009 [facility] [place] [facility] [address] [id number], [place] [address] 10 Sep, 2009 [facility] [place] [facility] [address] [id number], [place] [address] 08 May, 2009 [facility] [place] [facility] [address] [id number], [place] [address] 06 May, 2009 [facility] [place] [facility] [address] [id number], [place] [address] May, [facility] [id number], [place] [address] Apr, [facility] [id number], [place] [address] Apr, [facility] [id number], [place] [address] Apr, [facility] [id number] [place] [address] Apr, [facility] [id number] [place] [address] Apr, [facility] [id number] [place] [address] Mar, [facility] [id number] [place] [address] Mar, [facility] [id number], [place] [address] Jul, IMMUNIZATIONS No Known Immunizations SOCIAL HISTORY [...] and replaced VC 10/2018 Hospitalization History Cellulitis-[facility]ia [facility] 12/20/15 Hospitalization [facility]- Abd pain 03/07/2017 [facility]- Abd pain 03/14/2017 [facility]- No bowel movement, rash 04/13/2017 Hospitalization History [facility]- Abd pain r/t kidney surgery on 04/10/17 04/17/2017 Hospitalization History [facility]- Abd pain r/t kidney surgery on 04/10/17 04/18/2017 Hospitalization History [facility]- Lower abd pain 04/30/2017 Hospitalization History [facility]- Cannot urinate 05/30/2017 Hospitalization History [facility]- Pancreatitis Sx 06/29/2017 Hospitalization History [facility]- Stomach pain 07/22/2017 Hospitalization History [facility]- Left side pain 08/12/2017 Hospitalization History [facility]- Incision site infection 08/30/2017 Hospitalization History [facility]- Post Op Seroma/Hematoma Left Abdomen. Discharged 09/04/17- Dr Daniel 09/02/2017 Hospitalization History [facility]- Right shoulder and back pain 10/22/2017 Hospitalization History [facility]- Shoulder/Back pain 11/11/2017 Hospitalization History [facility]- Right shoulder blade pain 12/04/2017 Hospitalization History [facility]- C-Diff 12/13/2017 Hospitalization History C diff et MRSA 12/27/2017 Hospitalization History Bowel abduction [facility] 10/2018
--- OUTSIDE RECORDS SUMMARY | 2019-01-07 11:13 | XMS REPORT ---
Author Author SAI CARMEN Organization [facility] Address [address] [place] [address] Care Team Providers Care Diagrammer And Seamer Name Role Phone CARMEN GIBBS Unavailable PROBLEMS Type Condition ICD9-CM Code WML89-VP Code Onset Dates Condition Status SNOMED Code Problem Nodule of left lung R91.1 Active 377213990 Problem History of renal cell carcinoma Z85.528 Active 967539932 Problem Hyperlipidemia, mixed E78.2 Active 574652085 Problem Right carpal tunnel syndrome G56.01 Active 890017996593624 Problem Chronic fatigue R53.82 Active 46686130 Problem Moderate episode of recurrent major depressive disorder F33.1 Active 129754115 Problem Chronic pancreatitis K86.1 Active 054460008 Problem Morbid (severe) obesity due to excess calories E66.01 Active 075896768 Problem Polydipsia R63.1 Active 07725203 Problem Asthma J45.909 Active 748932159 Problem Trichotillomania F63.3 Active 55419041 Problem Atelectasis J98.11 Active 00927095 Problem Restless leg syndrome G25.81 Active 21689081 Problem Chronic post-traumatic stress disorder (PTSD) F43.12 Active 587124450 Problem Intestinal malabsorption, unspecified K90.9 Active 88301460 Problem Primary osteoarthritis of right knee M17.11 Active 628942274236972 Problem Obesities, morbid E66.01 Active 890544940 Problem Conflict between patient and family Z63.9 Active 43741240 Problem FH: polycystic ovary Z84.2 Active 595370650 Problem Observed sleep apnea G47.30 Active 51851195 Problem Hirsuties L68.0 Active 154457327 Problem Chronic tension-type headache, intractable G44.221 Active 513861664 Problem Menopausal symptoms N95.1 Active 30551150 Problem Morbid obesity E66.01 Active 448547419 Problem Social phobia, generalized F40.11 Active 28869638 Problem Social phobia, unspecified F40.10 Active 72158711 ALLERGIES No Information ENCOUNTERS Encounter Location Date Diagnosis [facility] [id number] [place] [address] Jan, [facility] [id number] [place] [address] Dec, [facility] [id number] [place] [address] Dec, [facility] [id number] [place] [address] Dec, [place] [address] [address] Dec, Hyperlipidemia, mixed E78.2 ; History of renal cell carcinoma Z85.528 and Restless leg syndrome G25.81 [place] [id number] [place] [address] Dec, Hyperlipidemia, mixed E78.2 ; Chronic pancreatitis K86.1 ; Restless leg syndrome G25.81 ; Nodule of left lung R91.1 ; History of renal cell carcinoma Z85.528 ; Leg swelling M79.89 ; Morbid obesity E66.01 and Observed sleep apnea G47.30 [facility] [id number] [place] [address] Nov, [facility] [id number] [place] [address] Nov, [facility] [id number] [place] [address] Nov, [facility] [id number] [place] [address] Nov, Other acute postprocedural pain G89.18 and Unspecified abdominal pain R10.9 [facility] [id number] [place] [address] October, [facility] [address] [place] [address] October, Social phobia, generalized F40.11 ; Conflict between patient and family Z63.9 and Morbid obesity E66.01 [facility] [address] [facility] [id number] [address] October, [facility] [address] [facility] [id number] [address] October, [facility] [address] [address] October, [facility] [address] [address] October, [address] [address] October, [facility] [address] [address] October, [address] [address] October, [facility] [id number] [address] October, Morbid obesity E66.01 ; Routine gynecological examination Z01.419 and Menopausal symptoms N95.1 [facility] [id number] [address] October, [address] [address] Sep, [facility] [id number] [address] Sep, [facility] [address] [facility] [id number], [place] [address] Sep, [facility] [address], [place] [address] Sep, [facility] [id number] [address] Sep, Lower extremity edema R60.0 [facility] [address], [place] [address] Sep, [facility] [id number] [place] [address] Sep, Lower extremity edema R60.0 and Morbid obesity E66.01 [facility] [id number] [place] [address] Sep, [facility] [id number] [place] [address] Sep, [facility] [id number] [place] [address] Aug, [facility] [id number] [place] [address] Aug, Obesities, morbid E66.01 and Morbid obesity E66.01 [facility] [id number] [place] [address] Aug, [facility] [address] [address] Jul, [facility] [id number] [place] [address] Jul, [facility] [address], [place] [address] Jul, [facility] [address], [place] [address] Jul, Numbness of right hand R20.0 [facility] [address], [place] [address] Jul, [facility] [id number] [place] [address] Jul, Numbness of right hand R20.0 [facility] [address], [place] [address] Jul, [facility] [id number] [place] [address] Jul, [facility] [id number] [place] [address] Jul, Right-sided thoracic back pain M54.6 [facility] [id number] [place] [address] Jul, [facility] [id number] [place] [address] Jul, [facility] [id number] [place] [address] Jul, [facility] [id number] [place] [address] Jul, [facility] [id number] [place] [address] Jun, [facility] [id number] [place] [address] Jun, Acute pain of right shoulder M25.511 ; Numbness of right hand R20.0 and Trapezius muscle spasm M62.838 [facility] [id number] [place] [address] Jun, [facility] [id number] [place] [address] Jun, [facility] [id number] [place] [address] Jun, Cough R05 ; BMI 50.0-59.9, adult Z68.43 and Morbid obesity E66.01 [facility] [id number] [place] [address] Jun, [facility] [id number] [place] [address] Jun, [facility] [id number] [place] [address] 13 Jun, 2018 BMI 45.0-49.9, adult Z68.42 and Acute non-recurrent maxillary sinusitis J01.00 [facility] [id number] [place] [address] 09 Jun, 2018 Acute sinusitis J01.90 ; Dysuria R30.0 and BMI 45.0-49.9, adult Z68.42 [facility] [address] [address] 07 Jun, 2018 [facility] [address] [address] Jun, [facility] [address] [address] May, [facility] [address] [address] May, [facility] [id number] [place] [address] May, [facility] [id number] [place] [address] May, [facility] [id number] [place] [address] May, [facility] [id number] [place] [address] Apr, Generalized social phobia F40.11 ; Trichotillomania F63.3 ; Chronic post-traumatic stress disorder (PTSD) F43.12 and BMI 45.0-49.9, adult Z68.42 [facility] [address] [address] Apr, [facility] [address] [address] Apr, Chronic tension-type headache, intractable G44.221 [facility] [address] [address] Apr, [facility] [id number] [place] [address] Mar, [facility] [id number] [place] [address] Mar, BMI 45.0-49.9, adult Z68.42 and Pimples R23.8 [facility] [id number] [place] [address] Mar, [facility] [id number] [place] [address] Mar, [facility] [id number] [place] [address] Mar, Decreased urination R34 ; Chronic fatigue R53.82 ; Peripheral edema R60.9 ; Diarrhea, unspecified type R19.7 ; Non-intractable vomiting with nausea, unspecified vomiting type R11.2 ; BMI 45.0-49.9, adult Z68.42 and Chronic post-traumatic stress disorder (PTSD) F43.12 [facility] [id number] [place] [address] Mar, Intestinal malabsorption, unspecified K90.9 ; Diarrhea, unspecified R19.7 ; Urinary urgency R39.15 ; Rectal bleeding K62.5 and Decreased urine output R34 [place] [id number] [place] [address] Mar, Decreased urine output R34 [facility] [id number] [place] [address] Mar, Rectal bleeding K62.5 [place] [id number] [place] [address] Mar, Rectal bleeding K62.5 [place] [id number] [place] [address] Mar, Urinary urgency R39.15 [place] [id number] [place] [address] Mar, Urinary urgency R39.15 [place] [address] [address] Mar, Primary osteoarthritis of right knee M17.11 and BMI 45.0-49.9, adult Z68.42 [place] [id number] [place] [address] Mar, [facility] [id number] [place] [address] Feb, Left upper arm pain M79.622 [place] [id number] [place] [address] Feb, [place] [id number] [place] [address] Jan, Acute pain of right knee M25.561 ; Right upper quadrant abdominal pain R10.11 and BMI 45.0-49.9, adult Z68.42 [place] [id number] [place] [address] Jan, [place] [id number] [place] [address] Jan, [place] [id number] [place] [address] Dec, [facility] [id number] [place] [address] Dec, Intestinal malabsorption, unspecified K90.9 and Diarrhea, unspecified R19.7 [facility] [id number] [place] [address] Dec, [facility] [id number] [place] [address] Dec, Strep throat J02.0 ; Intestinal malabsorption, unspecified K90.9 ; Diarrhea, unspecified R19.7 ; Postoperative seroma involving digestive system after non-digestive system procedure K91.873 ; Hyperlipidemia, mixed E78.2 and BMI 45.0-49.9, adult Z68.42 [facility] [id number] [place] [address] Dec, [facility] [id number] [place] [address] Dec, Nausea R11.0 [facility] [id number] [place] [address] Dec, [facility] [id number] [place] [address] Dec, Sore throat J02.9 ; Strep throat J02.0 and BMI 45.0-49.9, adult Z68.42 [facility] [id number] [place] [address] Dec, [facility] [id number] [place] [address] Dec, [facility] [id number] [place] [address] Dec, [facility] [id number] [place] [address] Dec, [facility] [id number] [place] [address] Dec, [facility] [id number] [place] [address] Dec, [facility] [address], [place] [address] Dec, [facility] [id number] [place] [address] Dec, [facility] [address], [place] [address] Dec, Clostridium difficile colitis A04.72 ; Intractable vomiting with nausea, unspecified vomiting type R11.2 and BMI 45.0-49.9, adult Z68.42 [facility] [id number] [place] [address] Dec, [facility] [id number] [place] [address] Nov, [facility] [id number] [place] [address] Nov, [facility] [id number] [place] [address] Nov, [facility] [address] [address] Nov, [facility] [id number] [place] [address] Nov, [facility] [id number] [place] [address] Nov, Hyperlipidemia, mixed E78.2 [facility] [id number] [place] [address] Nov, Acute suppurative otitis media of right ear without spontaneous rupture of tympanic membrane, recurrence not specified H66.001 and BMI 45.0-49.9, adult Z68.42 [facility] [id number] [place] [address] Nov, Hyperlipidemia, mixed E78.2 [facility] [id number] [place] [address] Nov, [facility] [id number] [place] [address] Nov, [facility] [id number] [place] [address] Nov, Nodule of left lung R91.1 [facility] [id number] [place] [address] Nov, Medicare annual wellness visit, initial Z00.00 [...] adult Z68.42 and Encounter for immunization Z23 [place] [id number] [place] [address] October, [place] [id number] [place] [address] October, Nodule of left lung R91.1 [id number] [place] [address] October, Nodule of left lung R91.1 [place] [id number] [place] [address] October, Recurrent major depressive disorder, in partial remission F33.41 ; Restless leg syndrome G25.81 ; Generalized social phobia F40.11 ; Chronic post-traumatic stress disorder (PTSD) F43.12 ; BMI 45.0-49.9, adult Z68.42 and Trichotillomania F63.3 [place] [id number] [place] [address] October, [place] [id number] [place] [address] Sep, Chronic fatigue R53.82 and BMI 45.0-49.9, adult Z68.42 [place] [id number] [place] [address] Aug, [place] [id number] [place] [address] Jul, Restless leg syndrome G25.81 and B12 deficiency E53.8 [place] [id number] [place] [address] Jul, [facility] [id number] [place] [address] Jul, [facility] [id number] [place] [address] Jun, [place] [id number] [place] [address] Jun, Fatigue, unspecified type R53.83 ; History of renal cell carcinoma Z85.528 ; Chronic pancreatitis K86.1 ; Restless leg syndrome G25.81 ; Dark urine R82.99 and BMI 45.0-49.9, adult Z68.42 [place] [id number] [place] [address] Jun, [place] [id number] [place] [address] Jun, [place] [id number] [place] [address] Jun, [place] [id number] [place] [address] Jun, [place] [address], [place] [address] May, Chronic post-traumatic stress disorder (PTSD) F43.12 ; Moderate episode of recurrent major depressive disorder F33.1 ; Trichotillomania F63.3 and Generalized social phobia F40.11 [place] [id number] [place] [address] May, [place] [id number] [place] [address] May, Chronic post-traumatic stress disorder (PTSD) F43.12 ; Moderate episode of recurrent major depressive disorder F33.1 ; Trichotillomania F63.3 and Generalized social phobia F40.11 [place] [address], [place] [address] May, Hyperlipidemia, mixed E78.2 ; Morbid (severe) obesity due to excess calories E66.01 ; Chronic post-traumatic stress disorder (PTSD) F43.12 ; Moderate episode of recurrent major depressive disorder F33.1 ; Trichotillomania F63.3 and Generalized social phobia F40.11 [place] [id number] [place] [address] 30 Apr, 2017 [place] [id number] [place] [address] Apr, Hyperlipidemia, mixed E78.2 ; Morbid (severe) obesity due to excess calories E66.01 ; Chronic post-traumatic stress disorder (PTSD) F43.12 ; Moderate episode of recurrent major depressive disorder F33.1 ; Trichotillomania F63.3 and Generalized social phobia F40.11 [place] [address] [place] [address] Apr, Trichotillomania F63.3 ; Generalized social phobia F40.11 ; Chronic post-traumatic stress disorder (PTSD) F43.12 and Moderate episode of recurrent major depressive disorder F33.1 [place] [address], [place] [address] 15 Apr, 2017 [place] [address], [place] [address] Apr, [place] [address], [place] [address] Mar, Moderate episode of recurrent major depressive disorder F33.1 ; Trichotillomania F63.3 ; Chronic post-traumatic stress disorder (PTSD) F43.12 ; Generalized social phobia F40.11 and Restless leg syndrome G25.81 [place] [address] [address] Mar, [place] [id number] [place] [address] Mar, [facility] [id number] [place] [address] Feb, Left kidney mass N28.89 [facility] [id number] [place] [address] Jan, [facility] [address] [address] Dec, Polydipsia R63.1 ; Chronic pancreatitis K86.1 and Fatigue, unspecified type R53.83 [place] [address] [address] Nov, [facility] [id number] [place] [address] Nov, [facility] [address] [address] Nov, Headache around the eyes R51 [facility] [id number] [place] [address] Nov, [facility] [id number] [place] [address] October, STD exposure Z20.2 [facility] [id number] [place] [address] October, STD exposure Z20.2 [facility] [id number] [place] [address] October, Chronic post-traumatic stress disorder (PTSD) F43.12 ; Generalized social phobia F40.11 ; Trichotillomania F63.3 and Restless leg syndrome G25.81 [facility] [id number] [place] [address] October, [facility] [id number] [place] [address] Sep, [place] [id number] [place] [address] 17 Aug, 2016 [place] [id number] [place] [address] Aug, [place] [id number] [place] [address] 08 Aug, 2016 Neck mass R22.1 [place] [address] [address] Aug, Atelectasis J98.11 [place] [id number] [place] [address] Jul, Hyperlipidemia, mixed E78.2 ; Atypical pneumonia J18.9 and Neck mass R22.1 [place] [id number] [place] [address] Jul, Hemoptysis R04.2 [place] [id number] [place] [address] 08 Jul, 2016 Acute non-recurrent pansinusitis J01.40 ; Hemoptysis R04.2 ; Polydipsia R63.1 and Malaise R53.81 [facility] [place] [id number] [place] [address] May, Other viral agents as the cause of diseases classified elsewhere B97.89 and Acute upper respiratory infection, unspecified J06.9 [facility] [address] [place], [place] [id number] [place] [phone] Mar, Nausea R11.0 [facility] [place] [id number] [place] [phone] Dec, Hives L50.9 [place] [address] [place] [id number] [place] [phone] 14 Dec, 2015 [facility] [place] [id number] [place] [phone] 10 Dec, 2015 Cutaneous abscess of limb, unspecified L02.419 ; Cellulitis of unspecified part of limb L03.119 ; Encounter for incision and drainage procedure Z01.89 and Encounter for recheck of abscess following incision and drainage Z09 [facility] [id number] [place] [id number] 09 Dec, 2015 Abscess of leg, right L02.415 [place] [address] [place] [id number] [place] [phone] 08 Dec, 2015 Cellulitis of unspecified part of limb L03.119 and Cutaneous abscess of limb, unspecified L02.419 [place] [address] [place] [id number] [place] [address] Dec, [place] [id number] [place] [address] Dec, [facility] [place] [id number] [place] [address] Aug, [place] [id number] [place] [address] Aug, [facility] [place] [id number] [place] [address] 04 Jul, 2015 Pain in unspecified wrist M25.539 and Back pain, thoracic M54.6 [facility] [place] [id number] [place] [address] Jun, Strain of right wrist, initial encounter S66.911A [place] [id number] [place] [address] 11 Jun, 2015 Chronic pancreatitis, unspecified pancreatitis type K86.1 ; Hirsuties L68.0 ; Morbid (severe) obesity due to excess calories E66.01 ; Chronic pancreatitis K86.1 and Asthma J45.909 [place] [id number] [place] [address] 14 May, 2015 [place] [address] [place] [address] May, Hyperlipidemia, mixed E78.2 and Muscle spasm of back M62.830 [facility] [address] [address] Apr, [facility] [address] [address] Apr, Torticollis M43.6 [facility] [address] [address] Apr, Right-sided thoracic back pain M54.6 [facility] [address] [address] Mar, Rash R21 [facility] [address] [address] Mar, [facility] [address] [address] Jan, [facility] [address] [address] Dec, [facility] [address] [address] Dec, Urinary frequency 788.41 and Nocturia more than twice per night 788.43 [facility] [id number] [place] [address] Nov, [facility] [address] [address] Nov, [facility] [id number] [place] [address] Nov, Abdominal pain 789.00 [facility] [address] [address] October, TDAP DX V06.1 [facility] [address] [address] October, [facility] [address] [id number] [address] October, Disturbance of skin sensation 782.0 ; Wrist pain, right 719.43 ; Hyperlipidemia 272.4 and Skin lesion of face 709.9 [facility] [address] [facility] [id number] [address] Sep, [facility] [address] [facility] [id number] [place] [address] Sep, [facility] [address] [facility] [id number], [place] [address] Aug, [facility] [address] [id number] [address] Aug, [facility] [address] [address] Aug, [facility] [address] [id number] [address] Aug, [facility] [address] [id number] [address] Aug, [facility] [address] [address] Aug, [facility] [address] [address] Aug, [facility] [address] [id number] [address] 14 Aug, 2014 [facility] [address] [id number] [address] Aug, [facility] [address] [facility] [id number], [place] [address] Aug, [facility] [address] [id number] [address] 04 Aug, 2014 [facility] [address] [address] Aug, [facility] [place] [facility] [address] [id number] [place] [address] Aug, [facility] [place] [facility] [address] [id number] [place] [address] Aug, [facility] [place] [facility] [address] [id number] [place] [address] Jul, [facility] [place] [facility] [address] [id number] [place] [address] Jul, [facility] [place] [facility] [address] [id number] [place] [address] Jul, [facility] [place] [facility] [address] [id number] [place] [address] Jul, [facility] [place] [facility] [address] [id number] [place] [address] Jul, [facility] [place] [facility] [address] [id number] [place] [address] Jul, [facility] [place] [facility] [address] [id number] [place] [address] Jun, [facility] [place] [facility] [address] [id number] [place] [address] Jun, [facility] [place] [facility] [address] [id number] [place] [address] Jun, [facility] [place] [facility] [address] [id number] [place] [address] Jun, [facility] [place] [facility] [address] [id number] [place] [address] Jun, [facility] [place] [facility] [address] [id number] [place] [address] Jun, [facility] [place] [facility] [address] [id number] [place] [address] Jun, [facility] [place] [facility] [address] [id number] [place] [address] 15 Jun, 2014 [facility] [place] [facility] [address] [id number] [place] [address] May, [facility] [place] [facility] [address] [id number] [place] [address] May, [facility] [place] [facility] [address] [id number] [place] [address] May, [facility] [place] [facility] [address] [id number] [place] [address] May, [facility] [place] [facility] [address] [id number] [place] [address] May, [facility] [place] [facility] [address] [id number] [place] [address] May, [facility] [place] [facility] [address] [id number] [place] [address] May, [facility] [place] [facility] [address] [id number] [place] [address] May, [facility] [place] [facility] [address] [id number] [place] [address] May, [facility] [place] [facility] [address] [id number] [place] [address] May, [facility] [place] [facility] [address] [id number] [place] [address] May, [facility] [place] [facility] [address] [id number] [place] [address] May, [facility] [place] [facility] [address] [id number] [place] [address] Apr, [facility] [place] [facility] [address] [id number] [place] [address] Apr, [facility] [place] [facility] [address] [id number], [place] [address] Apr, [facility] [place] [facility] [address] [id number] [place] [address] Apr, [facility] [place] [facility] [address] [id number] [place] [address] Apr, [facility] [place] [facility] [address] [id number] [place] [address] Apr, [facility] [place] [facility] [address] [id number] [place] [address] Apr, [facility] [place] [facility] [address] [id number] [place] [address] Apr, [facility] [place] [facility] [address] [id number] [place] [address] Apr, [facility] [place] [facility] [address] [id number] [place] [address] Apr, [facility] [place] [facility] [address] [id number] [place] [address] Apr, [facility] [place] [facility] [address] [id number] [place] [address] Apr, [facility] [place] [facility] [address] [id number] [place] [address] Mar, [facility] [place] [facility] [address] [id number], [place] [address] Mar, [facility] [place] [facility] [address] [id number], [place] [address] Mar, [facility] [place] [facility] [address] [id number], [place] [address] Mar, [facility] [place] [facility] [address] [id number], [place] [address] Feb, [facility] [place] [facility] [address] [id number] [place] [address] Feb, [facility] [place] [facility] [address] [id number] [place] [address] 05 Feb, 2013 [facility] [place] [facility] [address] [id number] [place] [address] Feb, 2013 [facility] [place] [facility] [address] [id number] [place] [address] Feb, 2013 [facility] [place] [facility] [address] [id number] [place] [address] Feb, 2013 [facility] [place] [facility] [address] [id number] [place] [address] Jan, 2013 [facility] [place] [facility] [address] [id number] [place] [address] Jan, [facility] [place] [facility] [address] [id number] [place] [address] Jan, [facility] [place] [facility] [address] [id number] [place] [address] Jan, [facility] [place] [facility] [address] [id number] [place] [address] Jan, [facility] [place] [facility] [address] [id number] [place] [address] Jan, [facility] [place] [facility] [address] [id number] [place] [address] Jan, [facility] [place] [facility] [address] [id number] [place] [address] Jan, [facility] [place] [facility] [address] [id number] [place] [address] Jan, [facility] [place] [facility] [address] [id number] [place] [address] Jan, [facility] [place] [facility] [address] [id number] [place] [address] Jan, [facility] [place] [facility] [address] [id number] [place] [address] Jan, [facility] [place] [facility] [address] [id number] [place] [address] Jan, [facility] [place] [facility] [address] [id number] [place] [address] Jan, [facility] [place] [facility] [address] [id number] [place] [address] Dec, [facility] [place] [facility] [address] [id number] [place] [address] Dec, [facility] [place] [facility] [address] [id number] [place] [address] Dec, [facility] [place] [facility] [address] [id number] [place] [address] Dec, [facility] [place] [facility] [address] [id number] [place] [address] Nov, [facility] [place] [facility] [address] [id number] [place] [address] Nov, [facility] [place] [facility] [address] [id number] [place] [address] Nov, [facility] [place] [facility] [address] [id number] [place] [address] Nov, [facility] [place] [facility] [address] [id number] [place] [address] Nov, [facility] [place] [facility] [address] [id number] [place] [address] October, [facility] [place] [facility] [address] [id number] [place] [address] October, [facility] [place] [facility] [address] [id number] [place] [address] October, [facility] [place] [facility] [address] [id number] [place] [address] October, [facility] [place] [facility] [address] [id number] [place] [address] October, [facility] [address] [id number] [place] [address] October, [facility] [place] [facility] [address] [id number] [place] [address] October, [facility] [address] [id number] [place] [address] October, [facility] [place] [facility] [address] [id number] [place] [address] October, [facility] [place] [facility] [address] [id number] [place] [address] October, [facility] [place] [facility] [address] [id number] [place] [address] October, [facility] [address] [id number] [place] [address] October, [facility] [place] [facility] [address] [id number] [place] [address] October, [facility] [place] [facility] [address] [id number] [place] [address] October, [facility] [place] [facility] [address] [id number] [place] [address] Sep, [facility] [place] [facility] [address] [id number] [place] [address] Sep, [facility] [place] [facility] [address] [id number] [place] [address] Sep, [facility] [place] [facility] [address] [id number] [place] [address] Sep, [facility] [place] [facility] [address] [id number] [place] [address] Sep, [facility] [place] [facility] [address] [id number] [place] [address] Sep, [facility] [place] [facility] [address] [id number] [place] [address] Sep, [facility] [place] [facility] [address] [id number] [place] [address] Sep, [facility] [place] [facility] [address] [id number] [place] [address] Sep, [facility] [place] [facility] [address] [id number] [place] [address] Sep, [facility] [place] [facility] [address] [id number] [place] [address] Sep, [facility] [place] [facility] [address] [id number] [place] [address] Sep, [facility] [place] [facility] [address] [id number] [place] [address] Sep, [facility] [place] [facility] [address] [id number] [place] [address] Sep, [facility] [place] [facility] [address] [id number] [place] [address] Sep, [facility] [place] [facility] [address] [id number] [place] [address] Aug, [facility] [place] [facility] [address] [id number] [place] [address] Aug, [facility] [place] [facility] [address] [id number] [place] [address] Aug, [facility] [place] [facility] [address] [id number] [place] [address] Aug, [facility] [place] [facility] [address] [id number] [place] [address] Jul, [facility] [place] [facility] [address] [id number] [place] [address] Jul, [facility] [place] [facility] [address] [id number], [place] [address] 06 Jul, 2013 [facility] [address] [id number] [place] [address] Jul, [facility] [address] [id number], [place] [address] Jun, [facility] [address] [id number] [place] [address] Jun, [facility] [place] [facility] [address] [id number], [place] [address] Jun, [facility] [address] [id number] [place] [address] Jun, [facility] [address] [id number] [place] [address] Jun, [facility] [address] [id number] [place] [address] Jun, [facility] [address] [id number] [place] [address] Jun, [facility] [address] [id number], [place] [address] Jun, [facility] [address] [facility] [id number] [place] [address] May, [facility] [address] [id number], [place] [address] May, [facility] [place] [facility] [address] [id number], [place] [address] 18 May, 2013 [facility] [place] [facility] [address] [id number] [place] [address] 18 May, 2013 [facility] [place] [facility] [address] [facility] [id number] [place] [address] 17 May, 2013 [facility] [place] [facility] [address] [id number] [place] [id number] 17 May, 2013 [facility] [place] [facility] [address] [id number] [place] [address] 17 May, 2013 [facility] [address] [id number] [place] [address] 17 May, 2013 [facility] [address] [id number] [place] [address] 16 May, 2013 [facility] [address] [id number] [place] [address] 16 May, 2013 [facility] [address] [id number] [place] [address] 14 May, 2013 [facility] [address] [id number] [place] [address] 14 May, 2013 [facility] [address] [id number] [place] [address] 13 May, 2013 [facility] [address] [id number] [place] [address] 13 May, 2013 [facility] [address] [id number] [place] [address] 12 May, 2013 [facility] [address] [id number] [place] [address] 12 May, 2013 [facility] [address] [facility] [id number] [place] [address] 11 May, 2013 [facility] [address] [id number] [place] [address] 11 May, 2013 [facility] [address] [id number] [place] [address] 26 Apr, 2013 [facility] [address] [id number] [place] [address] Apr, [facility] [address] [id number] [place] [address] Apr, [facility] [address] [id number] [place] [address] Apr, [facility] [address] [id number] [place] [address] 27 Aug, 2012 [facility] [place] [facility] [address] [id number] [place] [address] 18 Aug, 2012 [facility] [place] [facility] [address] [id number] [place] [address] 06 Aug, 2012 [facility] [place] [facility] [address] [id number] [place] [address] 05 Aug, 2012 [facility] [place] [facility] [address] [id number] [place] [address] Jul, [facility] [place] [facility] [address] [id number] [place] [address] Jun, [facility] [place] [facility] [address] [id number] [place] [address] Jun, [facility] [address] [id number] [place] [address] Jun, [facility] [place] [facility] [address] [id number] [place] [address] Jun, [facility] [address] [facility] [id number][place] [address] May, [facility] [place] [facility] [address] [id number], [place] [address] May, [facility] [place] [facility] [address] [id number], [place] [address] May, [facility] [place] [facility] [address] [id number] [place] [address] May, [facility] [place] [facility] [address] [id number], [place] [address] May, [facility] [place] [facility] [address] [facility] [id number], [place] [address] May, [facility] [place] [facility] [address] [id number], [place] [address] May, [facility] [place] [facility] [address] [id number], [place] [address] Apr, [facility] [place] [facility] [address] [facility] [id number][place] [address] Apr, [facility] [place] [facility] [address] [facility] [id number], [place] [address] Apr, [facility] [place] [facility] [address] [facility] [id number], [place] [address] Apr, [facility] [place] [facility] [address] [facility] [id number] [place] [address] Apr, [facility] [place] [facility] [address] [facility] [id number], [place] [address] Apr, [facility] [place] [facility] [id number] [place] [address] Apr, [facility] [place] [facility] [address] [facility] [id number], [place] [address] Mar, [facility] [place] [facility] [address] [facility] [id number], [place] [address] Mar, [facility] [place] [facility] [address] [facility] [id number], [place] [address] Mar, [facility] [place] [facility] [address] [facility] [id number], [place] [address] Mar, [facility] [place] [facility] [address] [facility] [id number], [place] [address] Mar, [facility] [place] [facility] [address] [facility] [id number], [place] [address] Mar, [facility] [place] [facility] [address] [facility] [id number], [place] [address] Mar, [facility] [place] [facility] [address] [facility] [id number], [place] [address] Mar, [facility] [place] [facility] [address] [id number] [place] [address] Mar, [facility] [place] [facility] [address] [id number] [place] [address] Mar, [facility] [place] [facility] [address] [id number] [place] [address] Mar, [facility] [place] [facility] [address] [id number] [place] [address] Mar, [facility] [place] [facility] [address] [id number] [place] [address] Feb, [facility] [place] [facility] [address] [id number] [place] [address] Jan, [facility] [place] [facility] [address] [id number] [place] [address] Jan, [facility] [place] [facility] [address] [id number] [place] [address] Jan, [facility] [place] [facility] [address] [id number] [place] [address] Jan, [facility] [place] [facility] [address] [id number] [place] [address] Jan, [facility] [place] [facility] [address] [id number] [place] [address] Dec, [facility] [place] [facility] [address] [id number] [place] [address] Dec, [facility] [place] [facility] [address] [id number] [place] [address] Nov, [facility] [place] [facility] [address] [id number] [place] [address] Nov, [facility] [place] [facility] [address] [id number] [place] [address] Nov, [facility] [place] [facility] [address] [id number] [place] [address] October, [facility] [address] [id number] [place] [address] October, [facility] [place] [facility] [address] [id number] [place] [address] October, [facility] [address] [id number] [place] [address] October, [facility] [address] [id number] [place] [address] October, [facility] [address] [id number] [place] [address] October, [facility] [address] [id number] [place] [address] October, [facility] [address] [id number] [place] [address] Sep, [facility] [place] [facility] [address] [id number] [place] [address] Sep, [facility] [place] [facility] [address] [id number] [place] [address] Sep, [facility] [place] [facility] [address] [id number] [place] [address] Sep, [facility] [place] [facility] [address] [id number] [place] [address] 24 Sep, 2011 [facility] [place] [facility] [address] [id number] [place] [address] 19 Sep, 2011 [facility] [place] [facility] [address] [id number] [place] [address] 17 Sep, 2011 [facility] [place] [facility] [address] [id number] [place] [address] 16 Sep, 2011 [facility] [place] [facility] [address] [id number] [place] [address] 16 Sep, 2011 [facility] [place] [facility] [address] [id number] [place] [address] 14 Sep, 2011 [facility] [address] [id number] [place] [address] 13 Sep, 2011 [facility] [place] [facility] [address] [id number] [place] [address] 10 Sep, 2011 [facility] [address] [id number] [place] [address] 09 Sep, 2011 [facility] [place] [facility] [address] [id number] [place] [address] 27 Aug, 2011 [facility] [place] [facility] [address] [id number] [place] [address] 12 Aug, 2011 [facility] [place] [facility] [address] [id number] [place] [address] 08 Aug, 2011 [facility] [address] [id number] [place] [address] 06 Aug, 2011 [facility] [place] [facility] [address] [id number] [place] [address] 28 Jul, 2011 [facility] [place] [facility] [address] [id number] [place] [address] 22 Jul, 2011 [facility] [address] [id number] [place] [address] 16 Jul, 2011 [facility] [place] [facility] [address] [id number] [place] [address] 15 Jul, 2011 [facility] [place] [facility] [address] [id number] [place] [address] 14 Jul, 2011 [facility] [place] [facility] [address] [id number] [place] [address] 10 Jul, 2011 [facility] [place] [facility] [address] [id number] [place] [address] 30 Jun, 2011 [facility] [place] [facility] [address] [id number] [place] [address] Jun, [facility] [address] [id number] [place] [address] Jun, [facility] [place] [facility] [address] [id number] [place] [address] Jun, [facility] [place] [facility] [address] [id number] [place] [address] Jun, [facility] [place] [facility] [address] [id number] [place] [address] May, [facility] [place] [facility] [address] [id number] [place] [address] May, [facility] [place] [facility] [address] [id number] [place] [address] May, [facility] [place] [facility] [address] [id number] [place] [address] May, [facility] [place] [facility] [address] [id number] [place] [address] May, [facility] [place] [facility] [address] [id number] [place] [address] May, [facility] [place] [facility] [address] [id number] [place] [address] May, [facility] [place] [facility] [address] [id number] [place] [address] 15 Apr, 2011 [facility] [place] [facility] [address] [id number] [address] 15 Apr, 2011 [facility] [place] [facility] [address] [id number] [place] [address] Apr, [facility] [place] [facility] [address] [id number] [place] [address] Apr, [facility] [place] [facility] [address] [id number] [place] [address] 04 Apr, 2011 [facility] [place] [facility] [address] [id number] [place] [address] Apr, [facility] [place] [facility] [address] [id number] [place] [address] Mar, [facility] [place] [facility] [address] [id number] [place] [address] Mar, [facility] [place] [facility] [address] [id number] [place] [address] Mar, [facility] [place] [facility] [address] [id number] [place] [address] Mar, [facility] [place] [facility] [address] [id number] [place] [address] Jan, [facility] [place] [facility] [address] [id number] [place] [address] Dec, [facility] [place] [facility] [address] [id number] [place] [address] Dec, [facility] [place] [facility] [address] [id number] [place] [address] October, [facility] [place] [facility] [address] [id number] [place] [address] Sep, [facility] [place] [facility] [address] [id number] [place] [address] 14 Sep, 2010 [facility] [place] [facility] [address] [id number] [place] [address] 17 Jul, 2010 [facility] [place] [facility] [address] [id number] [place] [address] Jul, [facility] [place] [facility] [address] [id number] [place] [address] May, [facility] [place] [facility] [address] [id number] [place] [address] May, [facility] [place] [facility] [address] [id number] [place] [address] May, [facility] [place] [facility] [address] [id number] [place] [address] May, [facility] [place] [facility] [address] [id number] [place] [address] Apr, [facility] [place] [facility] [address] [id number] [place] [address] Apr, [facility] [place] [facility] [address] [id number] [place] [address] Apr, [facility] [place] [facility] [address] [id number] [place] [address] Apr, [facility] [place] [facility] [address] [id number] [place] [address] Apr, [facility] [place] [facility] [address] [id number] [place] [address] Mar, [facility] [place] [facility] [address] [id number] [place] [address] 14 Mar, 2010 [facility] [place] [facility] [address] [id number] [place] [address] Mar, [facility] [place] [facility] [address] [id number] [place] [address] Mar, [facility] [place] [facility] [address] [id number] [place] [address] Jan, [facility] [place] [facility] [address] [id number], [place] [address] 15 Dec, 2009 [facility] [place] [facility] [address] [id number] [place] [address] Sep, [facility] [place] [facility] [address] [id number] [place] [address] May, [facility] [place] [facility] [address] [id number] [place] [address] May, [facility] [place] [facility] [address] [id number], [place] [address] May, [facility] [id number] [address] Apr, [facility] [address] [id number], [place] [address] Apr, [facility] [id number], [place] [address] Apr, [facility] [id number], [place] [address] Apr, [facility] [id number] [address] Apr, [facility] [id number] [address] Mar, [facility] [id number] [address] Mar, [facility] [id number], [place] [address] Jul, IMMUNIZATIONS No Known Immunizations SOCIAL HISTORY Never Assessed REASON FOR VISIT PLAN OF CARE VITAL SIGNS Height 62 in 2014-07-21 Weight 245.59 lbs 2014-07-21 Temperature 97.2 degrees Fahrenheit 2014-07-21 Heart Rate 90 bpm 2014-07-21 Respiratory Rate 20 2014-07-21 Blood pressure systolic 128 mmHg 2014-07-21 Blood pressure diastolic 90 mmHg 2014-07-21 MEDICATIONS Unknown Medications RESULTS No Results PROCEDURES [...] and replaced VC 10/2018 Hospitalization History Cellulitis-[facility] 12/20/15 Hospitalization History [facility]- Abd pain 03/07/2017 [facility]- Abd pain 03/14/2017 [facility] History [facility]- No bowel movement, rash 04/13/2017 Hospitalization History [facility]- Abd pain r/t kidney surgery on 04/10/17 04/17/2017 Hospitalization History [facility]- Abd pain r/t kidney surgery on 04/10/17 04/18/2017 Hospitalization History [facility]- Lower abd pain 04/30/2017 Hospitalization History [facility]- Cannot urinate 05/30/2017 Hospitalization History [facility]- Pancreatitis Sx 06/29/2017 Hospitalization History [facility]- Stomach pain 07/22/2017 Hospitalization History [facility]- Left side pain 08/12/2017 Hospitalization History [facility]- Incision site infection 08/30/[address] [facility]- Post Op Seroma/Hematoma Left Abdomen. Discharged 09/04/17- Dr Daniel 09/02/2017 Hospitalization History [facility]- Right shoulder and back pain 10/22/2017 Hospitalization History [facility]- Shoulder/Back pain 11/11/2017 Hospitalization History [facility]- Right shoulder blade pain 12/04/2017 Hospitalization History [facility]- C-Diff 12/13/2017 Hospitalization History C diff et MRSA 12/27/2017 Hospitalization History Bowel abduction [facility] 10/2018
--- OUTSIDE RECORDS SUMMARY | 2019-01-07 11:14 | XMS REPORT ---
Author Author SAI CARMEN [facility] Address [address] [place] [address] Care Team Providers Care Energy Manager Name Role Phone CARMEN GIBBS Unavailable PROBLEMS Type Condition ICD9-CM Code WGE12-GW Code Onset Dates Condition Status SNOMED Code Problem History of renal cell carcinoma Z85.528 Active 032442926 Problem Right carpal tunnel syndrome G56.01 Active 145826753269847 Problem Nodule of left lung R91.1 Active 918936698 Problem Moderate episode of recurrent major depressive disorder F33.1 Active 280994390 Problem Restless leg syndrome G25.81 Active 10696527 Problem Morbid (severe) obesity due to excess calories E66.01 Active 524477599 Problem Chronic tension-type headache, intractable G44.221 Active 121302078 Problem Asthma J45.909 Active 157403943 Problem Chronic pancreatitis K86.1 Active 973307092 Problem Atelectasis J98.11 Active 98912102 Problem Polydipsia R63.1 Active 54287347 Problem Chronic post-traumatic stress disorder (PTSD) F43.12 Active 008084264 Problem Trichotillomania F63.3 Active 53691022 Problem Chronic fatigue R53.82 Active 05351459 Problem Intestinal malabsorption, unspecified K90.9 Active 36297360 Problem Primary osteoarthritis of right knee M17.11 Active 081262134910436 Problem Social phobia, generalized F40.11 Active 41273919 Problem Hirsuties L68.0 Active 977840373 Problem Social phobia, unspecified F40.10 Active 15973390 Problem Hyperlipidemia, mixed E78.2 Active 306686099 Problem FH: polycystic ovary Z84.2 Active 629664491 Problem Obesities, morbid E66.01 Active 202394270 Problem Menopausal symptoms N95.1 Active 24221047 Problem Conflict between patient and family Z63.9 Active 24289039 Problem Morbid obesity E66.01 Active 085536156 ALLERGIES No Information ENCOUNTERS Encounter Location Date Diagnosis [facility] [id number] [place] [address] Jan, [facility] [address] [id number] [place] [address] Dec, [facility] [id number] [place] [address] Dec, [facility] [address] [address] Dec, Morbid obesity E66.01 ; Hyperlipidemia, mixed E78.2 ; Chronic pancreatitis K86.1 ; Restless leg syndrome G25.81 ; Nodule of left lung R91.1 ; History of renal cell carcinoma Z85.528 and Leg swelling M79.89 [facility] [id number] [place] [address] Nov, [facility] [id number] [place] [address] Nov, [facility] [id number] [place] [address] Nov, [facility] [id number] [place] [address] Nov, Other acute postprocedural pain G89.18 and Unspecified abdominal pain R10.9 [facility] [id number] [place] [address] October, [facility] [id number] [place] [address] October, Social phobia, generalized F40.11 ; Conflict between patient and family Z63.9 and Morbid obesity E66.01 [facility] [id number] [place] [address] October, [facility] [id number] [place] [address] October, [facility] [address] [place] [address] October, [facility] [id number] [address] October, [facility] [address] [address] [address] October, [facility] [address] [place] [address] October, [facility] [address] [address] October, [facility] [address] [place] [address] October, Morbid obesity E66.01 ; Routine gynecological examination Z01.419 and Menopausal symptoms N95.1 [facility] [address], [place] [address] October, [facility] [address] [address] Sep, [facility] [address] [place] [address] Sep, [facility] [id number] [place] [address] Sep, [facility] [address], [place] [address] Sep, [facility] [address], [place] [address] Sep, Lower extremity edema R60.0 [facility] [address] [place] [address] Sep, [facility] [address], [place] [address] Sep, Lower extremity edema R60.0 and Morbid obesity E66.01 [facility] [address], [place] [address] Sep, [facility] [address] [facility] [id number] [address] Sep, [facility] [address], [place] [address] Aug, [facility] [address], [place] [address] Aug, Obesities, morbid E66.01 and Morbid obesity E66.01 [facility] [address], [place] [address] Aug, [address] [address] Jul, [facility] [address], [place] [address] Jul, [facility] [address] [place] [address] Jul, [facility] [address], [place] [address] Jul, Numbness of right hand R20.0 [facility] [address], [place] [address] Jul, [facility] [address], [place] [address] Jul, Numbness of right hand R20.0 [facility] [address], [place] [address] Jul, [facility] [address], [place] [address] Jul, [facility] [address], [place] [address] Jul, Right-sided thoracic back pain M54.6 [facility] [address], [place] [address] Jul, [facility] [address], [place] [address] Jul, [place] [id number] [place] [address] Jul, [facility] [id number] [place] [address] Jul, [place] [address] [address] Jun, [place] [id number] [place] [address] Jun, Acute pain of right shoulder M25.511 ; Numbness of right hand R20.0 and Trapezius muscle spasm M62.838 [place] [id number] [place] [address] Jun, [place] [id number] [place] [address] Jun, [place] [id number] [place] [address] Jun, Cough R05 ; BMI 50.0-59.9, adult Z68.43 and Morbid obesity E66.01 [place] [address] [place] [address] Jun, [place] [id number] [place] [address] Jun, [facility] [id number] [place] [address] 13 Jun, 2018 BMI 45.0-49.9, adult Z68.42 and Acute non-recurrent maxillary sinusitis J01.00 [facility] [address] [place] [address] 09 Jun, 2018 Acute sinusitis J01.90 ; Dysuria R30.0 and BMI 45.0-49.9, adult Z68.42 [place] [address], [place] [address] Jun, [facility] [id number] [place] [address] Jun, [facility] [id number] [place] [address] May, [facility] [id number] [place] [address] May, [facility] [id number] [place] [address] May, [facility] [id number] [place] [address] May, [facility] [id number] [place] [address] May, [facility] [id number] [place] [address] Apr, Generalized social phobia F40.11 ; Trichotillomania F63.3 ; Chronic post-traumatic stress disorder (PTSD) F43.12 and BMI 45.0-49.9, adult Z68.42 [place] [id number] [place] [address] Apr, [facility] [id number] [place] [address] Apr, Chronic tension-type headache, intractable G44.221 [facility] [id number] [place] [address] Apr, [facility] [id number] [place] [address] Mar, [facility] [id number] [place] [address] Mar, BMI 45.0-49.9, adult Z68.42 and Pimples R23.8 [facility] [id number] [place] [address] Mar, [facility] [id number] [place] [address] Mar, [facility] [id number] [place] [address] Mar, Decreased urination R34 ; Chronic fatigue R53.82 ; Peripheral edema R60.9 ; Diarrhea, unspecified type R19.7 ; Non-intractable vomiting with nausea, unspecified vomiting type R11.2 ; BMI 45.0-49.9, adult Z68.42 and Chronic post-traumatic stress disorder (PTSD) F43.12 [place] [id number] [place] [address] Mar, Intestinal malabsorption, unspecified K90.9 ; Diarrhea, unspecified R19.7 ; Urinary urgency R39.15 ; Rectal bleeding K62.5 and Decreased urine output R34 [place] [id number] [place] [address] Mar, Decreased urine output R34 [place] [id number] [place] [address] Mar, Rectal bleeding K62.5 [place] [id number] [place] [address] Mar, Rectal bleeding K62.5 [place] [id number] [place] [address] Mar, Urinary urgency R39.15 [place] [id number] [place] [address] Mar, Urinary urgency R39.15 [place] [id number] [place] [address] Mar, Primary osteoarthritis of right knee M17.11 and BMI 45.0-49.9, adult Z68.42 [place] [id number] [place] [address] Mar, [facility] [address], [place] [address] Feb, Left upper arm pain M79.622 [facility] [id number] [place] [address] Feb, [facility] [id number] [place] [address] Jan, Acute pain of right knee M25.561 ; Right upper quadrant abdominal pain R10.11 and BMI 45.0-49.9, adult Z68.42 [facility] [id number] [place] [address] Jan, [facility] [id number] [place] [address] Jan, [facility] [id number] [place] [address] Dec, [facility] [address] [place] [address] Dec, Intestinal malabsorption, unspecified K90.9 and Diarrhea, unspecified R19.7 [facility] [address] [place] [address] Dec, [facility] [address] [place] [address] Dec, Strep throat J02.0 ; Intestinal malabsorption, unspecified K90.9 ; Diarrhea, unspecified R19.7 ; Postoperative seroma involving digestive system after non-digestive system procedure K91.873 ; Hyperlipidemia, mixed E78.2 and BMI 45.0-49.9, adult Z68.42 [facility] [id number] [place] [address] Dec, [facility] [id number] [place] [address] Dec, Nausea R11.0 [facility] [address], [place] [address] Dec, [facility] [address], [place] [address] Dec, Sore throat J02.9 ; Strep throat J02.0 and BMI 45.0-49.9, adult Z68.42 [facility] [address], [place] [address] Dec, [facility] [address], [place] [address] Dec, [facility] [id number] [place] [address] Dec, [facility] [address], [place] [address] Dec, [facility] [id number] [place] [address] Dec, [facility] [address], [place] [address] Dec, [facility] [address], [place] [address] Dec, [facility] [address], [place] [address] Dec, [facility] [address], [place] [address] Dec, Clostridium difficile colitis A04.72 ; Intractable vomiting with nausea, unspecified vomiting type R11.2 and BMI 45.0-49.9, adult Z68.42 [facility] [address], [place] [address] Dec, [facility] [address], [place] [address] Nov, [facility] [address], [place] [address] Nov, [place] [address] [place] [address] Nov, [place] [id number] [place] [address] Nov, [facility] [place] [id number] [place] [address] Nov, [place] [id number] [place] [address] Nov, Hyperlipidemia, mixed E78.2 [facility] [place] [id number] [place] [address] Nov, Acute suppurative otitis media of right ear without spontaneous rupture of tympanic membrane, recurrence not specified H66.001 and BMI 45.0-49.9, adult Z68.42 [place] [id number] [place] [address] Nov, Hyperlipidemia, mixed E78.2 [place] [id number] [place] [address] Nov, [place] [id number] [place] [address] Nov, [place] [id number] [place] [address] Nov, Nodule of left lung R91.1 [place] [id number] [place] [address] Nov, Medicare annual wellness visit, initial Z00.00 [...] adult Z68.42 and Encounter for immunization Z23 [place] [id number] [place] [address] October, [place] [address] [address] October, Nodule of left lung R91.1 [place] [address] [address] October, Nodule of left lung R91.1 [place] [id number] [place] [address] October, Recurrent major depressive disorder, in partial remission F33.41 ; Restless leg syndrome G25.81 ; Generalized social phobia F40.11 ; Chronic post-traumatic stress disorder (PTSD) F43.12 ; BMI 45.0-49.9, adult Z68.42 and Trichotillomania F63.3 [place] [id number] [place] [address] October, [place] [id number] [place] [address] Sep, Chronic fatigue R53.82 and BMI 45.0-49.9, adult Z68.42 [place] [id number] [place] [address] Aug, [place] [id number] [place] [address] Jul, Restless leg syndrome G25.81 and B12 deficiency E53.8 [place] [id number] [place] [address] Jul, [place] [id number] [place] [address] Jul, [place] [id number] [place] [address] Jun, [place] [address], [place] [address] Jun, Fatigue, unspecified type R53.83 ; History of renal cell carcinoma Z85.528 ; Chronic pancreatitis K86.1 ; Restless leg syndrome G25.81 ; Dark urine R82.99 and BMI 45.0-49.9, adult Z68.42 [place] [id number] [place] [address] Jun, [place] [id number] [place] [address] Jun, [place] [id number] [place] [address] Jun, [place] [id number] [place] [address] Jun, [place] [id number] [place] [address] May, Chronic post-traumatic stress disorder (PTSD) F43.12 ; Moderate episode of recurrent major depressive disorder F33.1 ; Trichotillomania F63.3 and Generalized social phobia F40.11 [place] [address] [place] [address] May, [place] [address] [place] [address] May, Chronic post-traumatic stress disorder (PTSD) F43.12 ; Moderate episode of recurrent major depressive disorder F33.1 ; Trichotillomania F63.3 and Generalized social phobia F40.11 [place] [address], [place] [address] 07 May, 2017 Hyperlipidemia, mixed E78.2 ; Morbid (severe) obesity due to excess calories E66.01 ; Chronic post-traumatic stress disorder (PTSD) F43.12 ; Moderate episode of recurrent major depressive disorder F33.1 ; Trichotillomania F63.3 and Generalized social phobia F40.11 [place] [id number] [place] [address] Apr, [place] [id number] [place] [address] Apr, Hyperlipidemia, mixed E78.2 ; Morbid (severe) obesity due to excess calories E66.01 ; Chronic post-traumatic stress disorder (PTSD) F43.12 ; Moderate episode of recurrent major depressive disorder F33.1 ; Trichotillomania F63.3 and Generalized social phobia F40.11 [place] [id number] [place] [address] Apr, Trichotillomania F63.3 ; Generalized social phobia F40.11 ; Chronic post-traumatic stress disorder (PTSD) F43.12 and Moderate episode of recurrent major depressive disorder F33.1 [place] [id number] [place] [address] Apr, [place] [address] [place] [id number] [place] [address] Apr, [place] [address] [place] [id number] [place] [address] Mar, Moderate episode of recurrent major depressive disorder F33.1 ; Trichotillomania F63.3 ; Chronic post-traumatic stress disorder (PTSD) F43.12 ; Generalized social phobia F40.11 and Restless leg syndrome G25.81 [place] [address] [place] [address] [id number] [place] [address] Mar, [place] [address] [place] [id number] [place] [address] Mar, [place] [address] [place] [address] [id number] [place] [address] Feb, Left kidney mass N28.89 [place] [address] [place] [id number] [place] [address] Jan, [place] [address] [place] [id number] [place] [address] Dec, Polydipsia R63.1 ; Chronic pancreatitis K86.1 and Fatigue, unspecified type R53.83 [facility] [id number] [place] [address] Nov, [facility] [id number] [place] [address] Nov, [facility] [id number] [place] [address] Nov, Headache around the eyes R51 [facility] [address] [place] [id number] [place] [address] Nov, [facility] [address] [place] [id number] [place] [address] October, STD exposure Z20.2 [facility] [address] [place] [id number] [place] [address] October, STD exposure Z20.2 [facility] [id number] [place] [address] October, Chronic post-traumatic stress disorder (PTSD) F43.12 ; Generalized social phobia F40.11 ; Trichotillomania F63.3 and Restless leg syndrome G25.81 [facility] [address] [place] [address] October, [facility] [id number] [place] [address] Sep, [facility] [address] [place] [address] Aug, [facility] [id number] [place] [address] Aug, [facility] [address] [place] [address] Aug, Neck mass R22.1 [facility] [address] [place] [address] 03 Aug, 2016 Atelectasis J98.11 [place] [address] [address] 28 Jul, 2016 Hyperlipidemia, mixed E78.2 ; Atypical pneumonia J18.9 and Neck mass R22.[address] [address] 15 Jul, 2016 Hemoptysis R04.2 [place] [address] [address] 08 Jul, 2016 Acute non-recurrent pansinusitis J01.40 ; Hemoptysis R04.2 ; Polydipsia R63.1 and Malaise R53.81 [facility] [place] [id number] [place] [address] May, Other viral agents as the cause of diseases classified elsewhere B97.89 and Acute upper respiratory infection, unspecified J06.9 [facility] [place] [id number] [place] [address] Mar, Nausea R11.0 [facility] [address] [address] 28 Dec, 2015 Hives L50.9 [place] [id number] [place] [address] 14 Dec, 2015 [facility] [place] [id number] [place] [address] 10 Dec, 2015 Cutaneous abscess of limb, unspecified L02.419 ; Cellulitis of unspecified part of limb L03.119 ; Encounter for incision and drainage procedure Z01.89 and Encounter for recheck of abscess following incision and drainage Z09 [facility] [place] [id number] [place] [address] 09 Dec, 2015 Abscess of leg, right L02.[address] [address] Dec, Cellulitis of unspecified part of limb L03.119 and Cutaneous abscess of limb, unspecified L02.419 [place] [id number] [place] [address] Dec, [place] [id number] [place] [address] Dec, [facility] [place] [address] [place] [id number] [place] [address] Aug, [place] [address] [place] [id number] [place] [address] Aug, [facility] [place] [address] [place] [id number] [place] [address] Jul, Pain in unspecified wrist M25.539 and Back pain, thoracic M54.6 [facility] [place] [id number] [place] [address] Jun, Strain of right wrist, initial encounter S66.911A [place] [address] [place] [id number] [place] [address] Jun, Chronic pancreatitis, unspecified pancreatitis type K86.1 ; Hirsuties L68.0 ; Morbid (severe) obesity due to excess calories E66.01 ; Chronic pancreatitis K86.1 and Asthma J45.909 [place] [id number] [place] [address] May, [place] [address] [address] [place] [id number] [place] [address] May, Hyperlipidemia, mixed E78.2 and Muscle spasm of back M62.830 [place] [id number] [place] [address] 30 Apr, 2015 [place] [id number] [place] [address] Apr, Torticollis M43.6 [place] [id number] [place] [address] Apr, Right-sided thoracic back pain M54.6 [facility] [id number] [place] [address] Mar, Rash R21 [facility] [id number] [place] [address] Mar, [facility] [id number] [place] [address] Jan, [facility] [id number] [place] [address] Dec, [facility] [id number] [place] [address] Dec, Urinary frequency 788.41 and Nocturia more than twice per night 788.43 [facility] [id number] [place] [address] Nov, [facility] [id number] [place] [address] Nov, [facility] [id number] [place] [address] Nov, Abdominal pain 789.00 [facility] [id number] [place] [address] October, TDAP DX V06.1 [facility] [id number] [place] [address] October, [facility] [id number] [place] [address] October, Disturbance of skin sensation 782.0 ; Wrist pain, right 719.43 ; Hyperlipidemia 272.4 and Skin lesion of face 709.9 [facility] [id number] [place] [address] Sep, [facility] [address] [place] [address] 13 Sep, 2014 [facility] [place] [facility] [address] [id number] [place] [address] 26 Aug, 2014 [facility] [place] [facility] [address] [id number] [place] [address] 26 Aug, 2014 [facility] [place] [facility] [address] [id number] [place] [address] 23 Aug, 2014 [facility] [place] [facility] [address] [id number] [place] [address] 23 Aug, 2014 [facility] [place] [facility] [address] [id number] [place] [address] 16 Aug, 2014 [facility] [place] [facility] [address] [id number] [place] [address] 16 Aug, 2014 [facility] [place] [facility] [address] [id number] [place] [address] 14 Aug, 2014 [facility] [place] [facility] [address] [id number] [place] [address] 14 Aug, 2014 [facility] [place] [facility] [address] [id number] [place] [address] Aug, [facility] [place] [facility] [address] [id number] [place] [address] Aug, [facility] [place] [facility] [address] [id number] [place] [address] 04 Aug, 2014 [facility] [place] [facility] [address] [id number] [place] [address] Aug, [facility] [place] [facility] [address] [id number] [place] [address] Aug, [facility] [place] [facility] [address] [id number] [place] [address] Aug, [facility] [place] [facility] [address] [id number] [place] [address] Jul, [facility] [place] [facility] [address] [id number] [place] [address] Jul, [facility] [place] [facility] [address] [id number] [place] [address] Jul, [facility] [place] [facility] [address] [id number] [place] [address] Jul, [facility] [place] [facility] [address] [id number] [place] [address] Jul, [facility] [place] [facility] [address] [id number] [place] [address] Jul, [facility] [place] [facility] [address] [id number] [place] [address] Jun, [facility] [place] [facility] [address] [id number] [place] [address] Jun, [facility] [place] [facility] [address] [id number] [place] [address] Jun, [facility] [place] [facility] [address] [id number] [place] [address] Jun, [facility] [place] [facility] [address] [id number] [place] [address] Jun, [facility] [place] [facility] [address] [id number] [place] [address] Jun, [facility] [place] [facility] [address] [id number], [place] [address] Jun, [facility] [place] [facility] [address] [id number] [place] [address] Jun, [facility] [place] [facility] [address] [id number] [place] [address] May, [facility] [place] [facility] [address] [id number] [place] [address] May, [facility] [place] [facility] [address] [id number] [place] [address] May, [facility] [place] [facility] [address] [id number] [place] [address] May, [facility] [place] [facility] [address] [id number] [place] [address] May, [facility] [place] [facility] [address] [id number] [place] [address] May, [facility] [place] [facility] [address] [id number] [place] [address] May, [facility] [place] [facility] [address] [id number] [place] [address] May, [facility] [place] [facility] [address] [id number] [place] [address] May, [facility] [place] [facility] [address] [id number] [place] [address] May, [facility] [place] [facility] [address] [id number] [place] [address] May, [facility] [place] [facility] [address] [id number] [place] [address] May, [facility] [place] [facility] [address] [id number] [place] [address] Apr, [facility] [place] [facility] [address] [id number] [place] [address] Apr, [facility] [place] [facility] [address] [id number] [place] [address] Apr, [facility] [place] [facility] [address] [id number] [place] [address] Apr, [facility] [place] [facility] [address] [id number] [place] [address] Apr, [facility] [place] [facility] [address] [id number] [place] [address] Apr, [facility] [place] [facility] [address] [id number] [place] [address] 14 Apr, 2014 [facility] [place] [facility] [address] [id number] [place] [address] 14 Apr, 2014 [facility] [place] [facility] [address] [id number] [place] [address] 13 Apr, 2014 [facility] [place] [facility] [address] [id number] [place] [address] 13 Apr, 2014 [facility] [place] [facility] [address] [id number] [place] [address] Apr, [facility] [place] [facility] [address] [id number] [place] [address] Apr, [facility] [place] [facility] [address] [id number] [place] [address] 14 Mar, 2014 [facility] [place] [facility] [address] [id number] [place] [address] 14 Mar, 2014 [facility] [place] [facility] [address] [id number] [place] [address] 02 Mar, 2014 [facility] [place] [facility] [address] [id number] [place] [address] 02 Mar, 2014 [facility] [place] [facility] [address] [id number] [place] [address] 10 Feb, 2014 [facility] [place] [facility] [address] [id number] [place] [address] 10 Feb, 2014 [facility] [place] [facility] [address] [id number] [place] [address] 05 Sep2013 [facility] [place] [facility] [address] [id number] [place] [address] 05 Sep, 2013 [facility] [place] [facility] [address] [id number] [place] [address] 05 Sep2013 [facility] [place] [facility] [address] [id number] [place] [address] Feb, [facility] [place] [facility] [address] [id number] [place] [address] Jan, [facility] [place] [facility] [address] [id number] [place] [address] Jan, [facility] [place] [facility] [address] [id number] [place] [address] Jan, [facility] [place] [facility] [address] [id number] [place] [address] Jan, [facility] [place] [facility] [address] [id number] [place] [address] Jan, [facility] [place] [facility] [address] [id number] [place] [address] Jan, [facility] [place] [facility] [address] [id number] [place] [address] Jan, [facility] [place] [facility] [address] [id number] [place] [address] Jan, [facility] [place] [facility] [address] [id number] [place] [address] Jan, [facility] [place] [facility] [address] [id number] [place] [address] Jan, [facility] [place] [facility] [address] [id number] [place] [address] Jan, [facility] [place] [facility] [address] [id number], [place] [address] Jan, [facility] [place] [facility] [address] [id number] [place] [address] Jan, [facility] [place] [facility] [address] [id number] [place] [address] Jan, [facility] [place] [facility] [address] [id number] [place] [address] Dec, [facility] [place] [facility] [address] [id number] [place] [address] Dec, [facility] [place] [facility] [address] [id number] [place] [address] Dec, [facility] [place] [facility] [address] [id number] [place] [address] Dec, [facility] [place] [facility] [address] [id number] [place] [address] Nov, [facility] [place] [facility] [address] [id number] [place] [address] Nov, [facility] [place] [facility] [address] [id number] [place] [address] Nov, [facility] [place] [facility] [address] [id number] [place] [address] Nov, [facility] [place] [facility] [address] [id number] [place] [address] Nov, [facility] [place] [facility] [address] [id number] [place] [address] October, [facility] [place] [facility] [address] [id number] [place] [address] October, [facility] [place] [facility] [address] [id number] [place] [address] October, [facility] [place] [facility] [address] [id number] [place] [address] October, [facility] [place] [facility] [address] [id number] [place] [address] October, [facility] [place] [facility] [address] [id number] [place] [address] October, [facility] [place] [facility] [address] [id number] [place] [address] October, [facility] [place] [facility] [address] [id number] [place] [address] October, [facility] [place] [facility] [address] [id number] [place] [address] October, [facility] [place] [facility] [address] [id number] [place] [address] October, [facility] [place] [facility] [address] [id number] [place] [address] October, [facility] [place] [facility] [address] [id number] [place] [address] October, [facility] [address] [id number] [place] [address] October, [facility] [place] [facility] [address] [id number] [place] [address] October, [facility] [address] [id number] [place] [address] Sep, [facility] [place] [facility] [address] [id number] [place] [address] Sep, [facility] [place] [facility] [address] [id number] [place] [address] Sep, [facility] [place] [facility] [address] [id number] [place] [address] Sep, [facility] [place] [facility] [address] [id number] [place] [address] Sep, [facility] [place] [facility] [address] [id number] [place] [address] Sep, [facility] [place] [facility] [address] [id number] [place] [address] Sep, [facility] [place] [facility] [address] [id number] [place] [address] Sep, [facility] [place] [facility] [address] [id number] [place] [address] Sep, [facility] [place] [facility] [address] [id number] [place] [address] Sep, [facility] [place] [facility] [address] [id number] [place] [address] Sep, [facility] [place] [facility] [address] [id number] [place] [address] Sep, [facility] [place] [facility] [address] [id number] [place] [address] Sep, [facility] [place] [facility] [address] [id number] [place] [address] Sep, [facility] [place] [facility] [address] [id number] [place] [address] Sep, [facility] [place] [facility] [address] [id number] [place] [address] Aug, [facility] [place] [facility] [address] [id number] [place] [address] Aug, [facility] [place] [facility] [address] [id number] [place] [address] Aug, [facility] [place] [facility] [address] [id number] [place] [address] Aug, [facility] [place] [facility] [address] [id number] [place] [address] Jul, [facility] [place] [facility] [address] [id number] [place] [address] Jul, [facility] [place] [facility] [address] [id number] [place] [address] Jul, [facility] [place] [facility] [address] [id number] [place] [address] Jul, [facility] [place] [facility] [address] [id number] [place] [address] Jun, [facility] [place] [facility] [address] [id number] [place] [address] Jun, [facility] [place] [facility] [address] [id number] [place] [address] 15 Jun, 2013 [facility] [address] [id number] [place] [address] 15 Jun, 2013 [facility] [place] [facility] [address] [id number] [place] [address] 10 Jun, 2013 [facility] [place] [facility] [address] [id number] [place] [address] Jun, [facility] [place] [facility] [address] [id number] [place] [address] Jun, [facility] [place] [facility] [address] [id number] [place] [address] Jun, [facility] [address] [id number] [place] [address] 20 May, 2013 [facility] [address] [id number] [place] [address] 20 May, 2013 [facility] [address] [id number] [place] [address] 18 May, 2013 [facility] [address] [id number] [place] [address] 18 May, 2013 [facility] [address] [id number] [place] [address] 17 May, 2013 [facility] [address] [id number] [place] [id number] 17 May, 2013 [facility] [place] [facility] [address] [id number] [place] [address] 17 May, 2013 [facility] [place] [facility] [address] [id number] [place] [address] 17 May, 2013 [facility] [place] [facility] [address] [id number] [place] [address] 16 May, 2013 [facility] [place] [facility] [address] [id number] [place] [address] 16 May, 2013 [facility] [address] [id number] [place] [address] 14 May, 2013 [facility] [place] [facility] [address] [id number] [place] [address] 14 May, 2013 [facility] [place] [facility] [address] [id number] [place] [address] 13 May, 2013 [facility] [place] [facility] [address] [id number] [place] [address] 13 May, 2013 [facility] [place] [facility] [address] [id number] [place] [address] 12 May, 2013 [facility] [place] [facility] [address] [id number] [place] [address] 12 May, 2013 [facility] [place] [facility] [address] [id number] [place] [address] 11 May, 2013 [facility] [place] [facility] [address] [id number] [place] [address] 11 May, 2013 [facility] [place] [facility] [address] [id number] [place] [address] Apr, [facility] [place] [facility] [address] [id number] [place] [address] Apr, [facility] [place] [facility] [address] [id number], [place] [address] Apr, [facility] [place] [facility] [address] [id number], [place] [address] Apr, [facility] [place] [facility] [address] [id number] [place] [address] 27 Aug, 2012 [facility] [place] [facility] [address] [id number] [place] [address] 18 Aug, 2012 [facility] [place] [facility] [address] [id number] [place] [address] 06 Aug, 2012 [facility] [place] [facility] [address] [id number] [place] [address] 05 Aug, 2012 [facility] [address] [id number] [place] [address] Jul, [facility] [place] [facility] [address] [id number] [place] [address] Jun, [facility] [address] [id number] [place] [address] Jun, [facility] [place] [facility] [address] [id number] [place] [address] Jun, [facility] [address] [id number] [place] [address] Jun, [facility] [place] [facility] [address] [id number] [place] [address] May, [facility] [address] [id number] [place] [address] May, [facility] [place] [facility] [address] [id number] [place] [address] May, [facility] [place] [facility] [address] [id number] [place] [address] May, [facility] [place] [facility] [address] [facility] [id number] [place] [address] May, [facility] [place] [facility] [address] [id number] [place] [address] May, [facility] [place] [facility] [address] [id number] [place] [address] May, [facility] [place] [facility] [address] [id number] [place] [address] Apr, [facility] [place] [facility] [address] [id number] [place] [address] Apr, [facility] [place] [facility] [address] [id number] [place] [address] Apr, [facility] [place] [facility] [address] [id number] [place] [address] Apr, [facility] [place] [facility] [address] [id number] [place] [address] Apr, [facility] [place] [facility] [address] [id number] [place] [address] Apr, [facility] [place] [facility] [address] [id number] [place] [address], [place] [address] Apr, [facility] [place] [facility] [address] [id number] [place] [address] Mar, [facility] [place] [facility] [address] [id number] [place] [address] Mar, [facility] [place] [facility] [address] [id number] [place] [address] Mar, [facility] [place] [facility] [address] [id number] [place] [address] Mar, [facility] [place] [facility] [address] [id number] [place] [address] Mar, [facility] [place] [facility] [address] [id number], [place] [address] Mar, [facility] [place] [facility] [address] [id number] [place] [address] Mar, [facility] [place] [facility] [address] [id number], [place] [address] Mar, [facility] [place] [facility] [address] [id number], [place] [address] Mar, [facility] [place] [facility] [address] [id number] [place] [address] Mar, [facility] [place] [facility] [address] [id number], [place] [address] Mar, [facility] [place] [facility] [address] [id number], [place] [address] Mar, [facility] [place] [facility] [address] [id number] [place] [address] Feb, [facility] [place] [facility] [address] [id number] [place] [address] Jan, [facility] [place] [facility] [address] [id number] [place] [address] Jan, [facility] [place] [facility] [address] [id number] [place] [address] Jan, [facility] [place] [facility] [address] [id number] [place] [address] Jan, [facility] [place] [facility] [address] [id number] [place] [address] Jan, [facility] [place] [facility] [address] [id number] [place] [address] Dec, [facility] [place] [facility] [address] [id number] [place] [address] Dec, [facility] [place] [facility] [address] [id number] [place] [address] Nov, [facility] [place] [facility] [address] [id number] [place] [address] Nov, [facility] [place] [facility] [address] [id number] [place] [address] Nov, [facility] [place] [facility] [address] [id number] [place] [address] October, [facility] [place] [facility] [address] [id number] [place] [address] October, [facility] [place] [facility] [address] [id number] [place] [address] October, [facility] [place] [facility] [address] [id number] [place] [address] October, [facility] [place] [facility] [address] [id number] [place] [address] 16 Oct, 2011 [facility] [address] [id number] [place] [address] October, [facility] [address] [id number] [place] [address] October, [facility] [address] [id number] [place] [address] Sep, [facility] [address] [id number] [place] [address] Sep, [facility] [address] [id number] [place] [address] Sep, [facility] [address] [id number] [place] [address] Sep, [facility] [address] [id number] [place] [address] 24 Sep, 2011 [facility] [address] [id number] [place] [address] 19 Sep, 2011 [facility] [address] [id number] [place] [address] 17 Sep, 2011 [facility] [address] [id number] [place] [address] 16 Sep, 2011 [facility] [address] [id number] [place] [address] 16 Sep, 2011 [facility] [address] [id number] [place] [address] 14 Sep, 2011 [facility] [address] [id number] [place] [address] 13 Sep, 2011 [facility] [address] [id number] [place] [address] 10 Sep, 2011 [facility] [address] [id number] [place] [address] Sep, [facility] [address] [id number] [place] [address] Aug, [facility] [place] [facility] [address] [id number] [place] [address] Aug, [facility] [place] [facility] [address] [id number] [place] [address] 08 Aug, 2011 [facility] [place] [facility] [address] [id number] [place] [address] 06 Aug, 2011 [facility] [place] [facility] [address] [id number] [place] [address] 28 Jul, 2011 [facility] [place] [facility] [address] [id number] [place] [address] 22 Jul, 2011 [facility] [place] [facility] [address] [id number] [place] [address] 16 Jul, 2011 [facility] [place] [facility] [address] [id number] [place] [address] 15 Jul, 2011 [facility] [place] [facility] [address] [id number] [place] [address] 14 Jul, 2011 [facility] [place] [facility] [address] [id number] [place] [address] 10 Jul, 2011 [facility] [place] [facility] [address] [id number] [place] [address] Jun, [facility] [place] [facility] [address] [id number] [place] [address] Jun, [facility] [place] [facility] [address] [id number] [place] [address] Jun, [facility] [place] [facility] [address] [id number] [place] [address] Jun, [facility] [place] [facility] [address] [id number] [place] [address] Jun, [facility] [place] [facility] [address] [id number] [place] [address] 27 May, 2011 [facility] [address] [id number] [place] [address] 21 May, 2011 [facility] [place] [facility] [address] [id number] [place] [address] 14 May, 2011 [facility] [address] [id number] [place] [address] 14 May, 2011 [facility] [place] [facility] [address] [id number] [place] [address] 12 May, 2011 [facility] [address] [id number] [place] [address] 07 May, 2011 [facility] [place] [facility] [address] [id number] [place] [address] 05 May, 2011 [facility] [place] [facility] [address] [id number] [place] [address] 15 Apr, 2011 [facility] [place] [facility] [address] [id number] [place] [address] 15 Apr, 2011 [facility] [place] [facility] [address] [id number] [place] [address] 07 Apr, 2011 [facility] [place] [facility] [address] [facility] [id number] [place] [address] 07 Apr, 2011 [facility] [place] [facility] [address] [id number] [place] [address] 04 Apr, 2011 [facility] [place] [facility] [address] [id number] [place] [address] Apr, [facility] [place] [facility] [address] [id number] [place] [address] 28 Mar, 2011 [facility] [place] [facility] [address] [id number] [place] [address] Mar, [facility] [place] [facility] [address] [id number] [place] [address] 12 Mar, 2011 [facility] [place] [facility] [address] [id number] [place] [address] Mar, [facility] [place] [facility] [address] [id number] [place] [address] Jan, [facility] [place] [facility] [address] [id number] [place] [address] Dec, [facility] [place] [facility] [address] [id number] [place] [address] Dec, [facility] [place] [facility] [address] [id number] [place] [address] October, [facility] [place] [facility] [address] [id number] [place] [address] 20 Sep, 2010 [facility] [place] [facility] [address] [id number] [place] [address] Sep, [facility] [place] [facility] [address] [id number] [place] [address] 17 Jul, 2010 [facility] [place] [facility] [address] [id number] [place] [address] Jul, [facility] [place] [facility] [address] [id number] [place] [address] May, [facility] [place] [facility] [address] [id number] [place] [address] May, [facility] [place] [facility] [address] [id number], [place] [address] May, [facility] [place] [facility] [address] [id number] [place] [address] May, [facility] [place] [facility] [address] [id number] [place] [address] Apr, [facility] [place] [facility] [address] [id number] [place] [address] Apr, [facility] [place] [facility] [address] [id number], [place] [address] Apr, [facility] [place] [facility] [address] [id number] [place] [address] 18 Apr, 2010 [facility] [place] [facility] [address] [facility] [id number], [place] [address] Apr, [facility] [place] [facility] [address] [facility] [id number] [place] [address] 21 Mar, 2010 [facility] [place] [facility] [address] [id number] [place] [address] 14 Mar, 2010 [facility] [place] [facility] [address] [facility] [id number] [place] [address], [place] [address] 13 Mar, 2010 [facility] [place] [facility] [address] [facility] [id number] [place] [address] 12 Mar, 2010 [facility] [address] [facility] [id number], [place] [address] Jan, [facility] [place] [facility] [address] [facility] [id number], [place] [address] 15 Dec, 2009 [facility] [place] [facility] [address] [facility] [id number], [place] [address] 10 Sep, 2009 [facility] [place] [facility] [address] [facility] [id number], [place] [address] 08 May, 2009 [facility] [place] [facility] [address] [facility] [id number], [place] [address] 06 May, 2009 [facility] [place] [facility] [address] [facility] [id number], [place] [address] 02 May, 2009 [facility] [place] [facility] [address] [facility] [id number], [place] [address] 17 Apr, 2009 [facility] [place] [facility] [address] [facility] [id number], [place] [address] 17 Apr, 2009 [facility] [place] [facility] [address] [facility] [id number], [place] [address] 10 Apr, 2009 [facility] [place] [facility] [address] [facility] [id number] [place] [address] Apr, [facility] [address] [facility] [id number], [place] [address] Apr, [facility] [address] [facility] [id number], [place] [address] Mar, [facility] [address] [facility] [id number], [place] [address] Mar, [facility] [address] [facility] [id number], [place] [address] Jul, IMMUNIZATIONS No Known Immunizations SOCIAL HISTORY [...] and replaced VC 10/2018 Hospitalization History Cellulitis-Via [facility] 12/20/15 Hospitalization History [facility]- Abd pain 03/07/2017 [facility]ization History [facility]- Abd pain 03/14/2017 Hospitalization History [facility]- No bowel movement, rash 04/13/2017 [facility]ization History [facility]- Abd pain r/t kidney surgery on 04/10/17 04/17/2017 Hospitalization History [facility]- Abd pain r/t kidney surgery on 04/10/17 04/18/2017 Hospitalization History [facility]- Lower abd pain 04/30/2017 Hospitalization History [facility]- Cannot urinate 05/30/2017 Hospitalization History [facility]- Pancreatitis Sx 06/29/2017 Hospitalization History [facility]- Stomach pain 07/22/2017 Hospitalization History [facility]- Left side pain 08/12/2017 Hospitalization History [facility]- Incision site infection 08/30/2017 Hospitalization History [facility]- Post Op Seroma/Hematoma Left Abdomen. Discharged 09/04/17- Dr Daniel 09/02/2017 Hospitalization History [facility]- Right shoulder and back pain 10/22/2017 Hospitalization History [facility]- Shoulder/Back pain 11/11/2017 Hospitalization History [facility]- Right shoulder blade pain 12/04/2017 Hospitalization History [facility]- C-Diff 12/13/2017 Hospitalization History C diff et MRSA 12/27/2017 Hospitalization History Bowel abduction [facility] 10/2018
--- OUTSIDE RECORDS SUMMARY | 2019-01-07 11:16 | XMS REPORT ---
Author Author Migration, Doctor Organization [facility] Address Unknown Phone Unavailable Care Team Providers Care Building Certifier Name Role Phone Migration, Doctor Unavailable Unavailable PROBLEMS Type Condition ICD9-CM Code PFF95-QT Code Onset Dates Condition Status SNOMED Code Problem History of renal cell carcinoma Z85.528 Active 090552377 Problem Right carpal tunnel syndrome G56.01 Active 071455776651039 Problem Nodule of left lung R91.1 Active 174000218 Problem Moderate episode of recurrent major depressive disorder F33.1 Active 214881781 Problem Restless leg syndrome G25.81 Active 77501308 Problem Morbid (severe) obesity due to excess calories E66.01 Active 127311176 Problem Chronic tension-type headache, intractable G44.221 Active 250801829 Problem Asthma J45.909 Active 368913290 Problem Chronic pancreatitis K86.1 Active 641685193 Problem Atelectasis J98.11 Active 35436553 Problem Polydipsia R63.1 Active 64772288 Problem Chronic post-traumatic stress disorder (PTSD) F43.12 Active 838049632 Problem Trichotillomania F63.3 Active 25376363 Problem Chronic fatigue R53.82 Active 72951331 Problem Intestinal malabsorption, unspecified K90.9 Active 72178343 Problem Primary osteoarthritis of right knee M17.11 Active 053974267110662 Problem Social phobia, generalized F40.11 Active 65611002 Problem Hirsuties L68.0 Active 876826358 Problem Social phobia, unspecified F40.10 Active 29780052 Problem Hyperlipidemia, mixed E78.2 Active 789914048 Problem FH: polycystic ovary Z84.2 Active 481481751 Problem Obesities, morbid E66.01 Active 953486118 Problem Menopausal symptoms N95.1 Active 62318815 Problem Conflict between patient and family Z63.9 Active 04455848 Problem Morbid obesity E66.01 Active 054588747 ALLERGIES No Information ENCOUNTERS Encounter Location Date Diagnosis [facility] [address] [facility] [id number] [address] Jan, [facility] [id number] [place] [address] Dec, [facility] [id number] [place] [address] Dec, [facility] [id number] [place] [address] Dec, Morbid obesity E66.01 ; Hyperlipidemia, mixed E78.2 ; Chronic pancreatitis K86.1 ; Restless leg syndrome G25.81 ; Nodule of left lung R91.1 ; History of renal cell carcinoma Z85.528 and Leg swelling M79.89 [facility] [id number] [place] [address] Nov, [facility] [id number] [place] [address] Nov, [facility] [id number] [place] [address] Nov, [facility] [id number] [place] [address] Nov, Other acute postprocedural pain G89.18 and Unspecified abdominal pain R10.9 [facility] [id number] [place] [address] October, [facility] [id number] [place] [address] October, Social phobia, generalized F40.11 ; Conflict between patient and family Z63.9 and Morbid obesity E66.01 [facility] [id number] [place] [address] October, [facility] [id number] [place] [address] October, [facility] [id number] [place] [address] October, [facility] [address] [facility] [id number], [place] [address] October, [facility] [place] [address] [address] October, [facility] [address] [address] October, [facility] [place] [address] [address] October, [facility] [address] [address] October, Morbid obesity E66.01 ; Routine gynecological examination Z01.419 and Menopausal symptoms N95.1 [facility] [address] [address] October, [facility] [place] [address] [address] Sep, [facility] [address] [address] Sep, [facility] [address] [address] Sep, [facility] [address] [address] Sep, [facility] [address] [address] Sep, Lower extremity edema R60.0 [facility] [address] [address] Sep, [facility] [address] [address] Sep, Lower extremity edema R60.0 and Morbid obesity E66.01 [facility] [address] [address] Sep, [facility] [address] [address] Sep, [facility] [address] [address] Aug, [facility] [address] [address] Aug, Obesities, morbid E66.01 and Morbid obesity E66.01 [facility] [address] [address] Aug, [address] [address] Jul, [facility] [address] [address] Jul, [facility] [id number] [place] [address] Jul, [facility] [id number] [place] [address] Jul, Numbness of right hand R20.0 [facility] [address] [address] Jul, [facility] [address] [address] Jul, Numbness of right hand R20.0 [facility] [address] [address] Jul, [facility] [address] [address] Jul, [facility] [address] [address] Jul, Right-sided thoracic back pain M54.6 [facility] [address] [address] Jul, [facility] [address] [address] Jul, [facility] [id number] [place] [address] Jul, [facility] [id number] [place] [address] Jul, [facility] [id number] [place] [address] Jun, [facility] [address] [address] Jun, Acute pain of right shoulder M25.511 ; Numbness of right hand R20.0 and Trapezius muscle spasm M62.838 [place] [facility] [id number] [place] [address] Jun, [place] [id number] [place] [address] Jun, [facility] [id number] [place] [address] Jun, Cough R05 ; BMI 50.0-59.9, adult Z68.43 and Morbid obesity E66.01 [facility] [id number] [place] [address] Jun, [place] [id number] [place] [address] Jun, [facility] [id number] [place] [address] Jun, BMI 45.0-49.9, adult Z68.42 and Acute non-recurrent maxillary sinusitis J01.00 [facility] [id number] [place] [address] 09 Jun, 2018 Acute sinusitis J01.90 ; Dysuria R30.0 and BMI 45.0-49.9, adult Z68.42 [place] [id number] [place] [address] Jun, [facility] [id number] [address] Jun, [facility] [id number] [place] [address] May, [facility] [id number] [place] [address] May, [facility] [id number] [place] [address] May, [facility] [id number] [place] [address] May, [facility] [id number] [place] [address] May, [facility] [id number] [place] [address] Apr, Generalized social phobia F40.11 ; Trichotillomania F63.3 ; Chronic post-traumatic stress disorder (PTSD) F43.12 and BMI 45.0-49.9, adult Z68.42 [facility] [id number] [place] [address] Apr, [facility] [id number] [place] [address] Apr, Chronic tension-type headache, intractable G44.221 [facility] [id number] [place] [address] Apr, [facility] [id number] [place] [address] Mar, [facility] [id number] [place] [address] Mar, BMI 45.0-49.9, adult Z68.42 and Pimples R23.8 [facility] [id number] [place] [address] Mar, [facility] [id number] [place] [address] Mar, [facility] [address] [address] Mar, Decreased urination R34 ; Chronic fatigue R53.82 ; Peripheral edema R60.9 ; Diarrhea, unspecified type R19.7 ; Non-intractable vomiting with nausea, unspecified vomiting type R11.2 ; BMI 45.0-49.9, adult Z68.42 and Chronic post-traumatic stress disorder (PTSD) F43.12 [facility] [id number] [place] [address] Mar, Intestinal malabsorption, unspecified K90.9 ; Diarrhea, unspecified R19.7 ; Urinary urgency R39.15 ; Rectal bleeding K62.5 and Decreased urine output R34 [place] [id number] [place] [address] Mar, Decreased urine output R34 [facility] [id number] [place] [address] Mar, Rectal bleeding K62.5 [place] [address] [address] Mar, Rectal bleeding K62.5 [facility] [id number] [place] [address] Mar, Urinary urgency R39.15 [facility] [id number] [place] [address] Mar, Urinary urgency R39.15 [facility] [id number] [place] [address] Mar, Primary osteoarthritis of right knee M17.11 and BMI 45.0-49.9, adult Z68.42 [facility] [id number] [place] [address] Mar, [facility] [address] [address] Feb, Left upper arm pain M79.622 [facility] [id number] [place] [address] Feb, [facility] [id number] [place] [address] Jan, Acute pain of right knee M25.561 ; Right upper quadrant abdominal pain R10.11 and BMI 45.0-49.9, adult Z68.42 [facility] [id number] [place] [address] Jan, [facility] [id number] [place] [address] Jan, [facility] [id number] [place] [address] Dec, [facility] [id number] [place] [address] Dec, Intestinal malabsorption, unspecified K90.9 and Diarrhea, unspecified R19.7 [facility] [id number] [place] [address] Dec, [facility] [id number] [place] [address] Dec, Strep throat J02.0 ; Intestinal malabsorption, unspecified K90.9 ; Diarrhea, unspecified R19.7 ; Postoperative seroma involving digestive system after non-digestive system procedure K91.873 ; Hyperlipidemia, mixed E78.2 and BMI 45.0-49.9, adult Z68.42 [facility] [id number] [place] [address] Dec, [facility] [id number] [place] [address] Dec, Nausea R11.0 [facility] [id number] [place] [address] Dec, [facility] [address] [facility] [id number] [place] [address] Dec, Sore throat J02.9 ; Strep throat J02.0 and BMI 45.0-49.9, adult Z68.42 [facility] [address] [facility] [id number] [place] [address] Dec, [facility] [address] [facility] [id number] [place] [address] Dec, [facility] [address] [facility] [id number] [place] [address] Dec, [facility] [id number] [place] [address] Dec, [facility] [id number] [place] [address] Dec, [facility] [id number] [place] [address] Dec, [facility] [id number] [place] [address] Dec, [facility] [id number] [place] [address] Dec, [facility] [id number] [place] [address] Dec, Clostridium difficile colitis A04.72 ; Intractable vomiting with nausea, unspecified vomiting type R11.2 and BMI 45.0-49.9, adult Z68.42 [facility] [address] [facility] [id number] [place] [address] Dec, [facility] [id number] [place] [address] Nov, [facility] [id number] [address] Nov, [facility] [id number] [place] [address] Nov, [place] [address] [address] Nov, [facility] [place] [id number] [place] [address] Nov, [place] [id number] [place] [address] Nov, Hyperlipidemia, mixed E78.2 [facility] [id number] [place] [address] Nov, Acute suppurative otitis media of right ear without spontaneous rupture of tympanic membrane, recurrence not specified H66.001 and BMI 45.0-49.9, adult Z68.42 [place] [id number] [place] [address] Nov, Hyperlipidemia, mixed E78.2 [place] [id number] [place] [address] Nov, [place] [id number] [place] [address] Nov, [place] [id number] [place] [address] Nov, Nodule of left lung R91.1 [place] [id number] [place] [address] 04 Nov, 2017 Medicare annual wellness visit, [...] adult Z68.42 and Encounter for immunization Z23 [place] [id number] [place] [address] October, [place] [id number] [place] [address] October, Nodule of left lung R91.1 [facility] [id number] [place] [address] October, Nodule of left lung R91.1 [place] [id number] [place] [address] October, Recurrent major depressive disorder, in partial remission F33.41 ; Restless leg syndrome G25.81 ; Generalized social phobia F40.11 ; Chronic post-traumatic stress disorder (PTSD) F43.12 ; BMI 45.0-49.9, adult Z68.42 and Trichotillomania F63.3 [place] [id number] [place] [address] October, [place] [id number] [place] [address] Sep, Chronic fatigue R53.82 and BMI 45.0-49.9, adult Z68.42 [facility] [place] [id number] [place] [address] Aug, [place] [id number] [place] [address] Jul, Restless leg syndrome G25.81 and B12 deficiency E53.8 [place] [id number] [place] [address] Jul, [place] [id number] [place] [address] Jul, [place] [id number] [place] [address] Jun, [place] [id number] [place] [address] 23 Gerard, 2018 Fatigue, unspecified type R53.83 ; History of renal cell carcinoma Z85.528 ; Chronic pancreatitis K86.1 ; Restless leg syndrome G25.81 ; Dark urine R82.99 and BMI 45.0-49.9, adult Z68.42 [place] [address], [place] [address] Jun, [place] [id number] [place] [address] Jun, [place] [id number] [place] [address] Jun, [place] [id number] [place] [address] Jun, [place] [id number] [place] [address] May, Chronic post-traumatic stress disorder (PTSD) F43.12 ; Moderate episode of recurrent major depressive disorder F33.1 ; Trichotillomania F63.3 and Generalized social phobia F40.11 [place] [id number] [place] [address] May, [place] [id number] [place] [address] May, Chronic post-traumatic stress disorder (PTSD) F43.12 ; Moderate episode of recurrent major depressive disorder F33.1 ; Trichotillomania F63.3 and Generalized social phobia F40.11 [place] [address] [address] May, Hyperlipidemia, mixed E78.2 ; Morbid (severe) obesity due to excess calories E66.01 ; Chronic post-traumatic stress disorder (PTSD) F43.12 ; Moderate episode of recurrent major depressive disorder F33.1 ; Trichotillomania F63.3 and Generalized social phobia F40.11 [place] [address] [address] Apr, [place] [id number] [place] [address] Apr, Hyperlipidemia, mixed E78.2 ; Morbid (severe) obesity due to excess calories E66.01 ; Chronic post-traumatic stress disorder (PTSD) F43.12 ; Moderate episode of recurrent major depressive disorder F33.1 ; Trichotillomania F63.3 and Generalized social phobia F40.11 [place] [address] [address] Apr, Trichotillomania F63.3 ; Generalized social phobia F40.11 ; Chronic post-traumatic stress disorder (PTSD) F43.12 and Moderate episode of recurrent major depressive disorder F33.1 [place] [id number] [place] [address] Apr, [place] [id number] [place] [address] Apr, [place] [address] [address] Mar, Moderate episode of recurrent major depressive disorder F33.1 ; Trichotillomania F63.3 ; Chronic post-traumatic stress disorder (PTSD) F43.12 ; Generalized social phobia F40.11 and Restless leg syndrome G25.81 [place] [id number] [place] [address] Mar, [place] [id number] [place] [address] Mar, [place] [id number] [place] [address] Feb, Left kidney mass N28.89 [place] [address] [address] Jan, [place] [id number] [place] [address] Dec, Polydipsia R63.1 ; Chronic pancreatitis K86.1 and Fatigue, unspecified type R53.83 [facility] [id number] [address] Nov, [facility] [id number] [place] [address] Nov, [facility] [id number] [place] [address] Nov, Headache around the eyes R51 [facility] [id number] [place] [address] Nov, [facility] [id number] [place] [address] October, STD exposure Z20.2 [place] [id number] [place] [address] October, STD exposure Z20.2 [place] [id number] [place] [address] October, Chronic post-traumatic stress disorder (PTSD) F43.12 ; Generalized social phobia F40.11 ; Trichotillomania F63.3 and Restless leg syndrome G25.81 [place] [id number] [place] [address] October, [facility] [id number] [place] [address] Sep, [facility] [id number] [place] [address] Aug, [facility] [id number] [place] [address] Aug, [facility] [id number] [place] [address] Aug, Neck mass R22.1 [facility] [id number] [place] [id number] Aug, Atelectasis J98.11 [place] [id number] [place] [id number] 28 Jul, 2016 Hyperlipidemia, mixed E78.2 ; Atypical pneumonia J18.9 and Neck mass R22.[address] [id number] 15 Jul, 2016 Hemoptysis R04.[address] [id number] 08 Jul, 2016 Acute non-recurrent pansinusitis J01.40 ; Hemoptysis R04.2 ; Polydipsia R63.1 and Malaise R53.81 [facility] [address] [id number] May, Other viral agents as the cause of diseases classified elsewhere B97.89 and Acute upper respiratory infection, unspecified J06.9 [facility] [address] [id number] Mar, Nausea R11.0 [facility] [address] [id number] 28 Dec, 2015 Hives L50.9 [place] [id number] [place] [id number] 14 Dec, 2015 [facility] [place] [id number] [place] [id number] Dec, Cutaneous abscess of limb, unspecified L02.419 ; Cellulitis of unspecified part of limb L03.119 ; Encounter for incision and drainage procedure Z01.89 and Encounter for recheck of abscess following incision and drainage Z09 [facility] [address] [address] 09 Dec, 2015 Abscess of leg, right L02.415 [place] [id number] [place] [address] 08 Dec, 2015 Cellulitis of unspecified part of limb L03.119 and Cutaneous abscess of limb, unspecified L02.419 [facility] [address] [address] Dec, [place] [id number] [place] [address] Dec, [facility] [id number] [place] [address] Aug, [place] [id number] [place] [address] Aug, [facility] [id number] [place] [address] Jul, Pain in unspecified wrist M25.539 and Back pain, thoracic M54.6 [facility] [place] [address] [id number] [place] [address] Jun, Strain of right wrist, initial encounter S66.911A [place] [id number] [place] [address] Jun, Chronic pancreatitis, unspecified pancreatitis type K86.1 ; Hirsuties L68.0 ; Morbid (severe) obesity due to excess calories E66.01 ; Chronic pancreatitis K86.1 and Asthma J45.909 [place] [id number] [place] [address] May, [place] [id number] [place] [address] May, Hyperlipidemia, mixed E78.2 and Muscle spasm of back M62.830 [place] [id number] [place] [address] Apr, [place] [id number] [place] [address] Apr, Torticollis M43.6 [place] [id number] [place] [address] Apr, Right-sided thoracic back pain M54.6 [facility] [address] [address] Mar, Rash R21 [facility] [id number] [place] [address] Mar, [facility] [id number] [place] [address] Jan, [facility] [id number] [place] [address] Dec, [facility] [id number] [place] [address] Dec, Urinary frequency 788.41 and Nocturia more than twice per night 788.43 [facility] [address] [id number] [place] [address] Nov, [facility] [id number] [place] [address] Nov, [facility] [id number] [place] [address] Nov, Abdominal pain 789.00 [facility] [id number] [place] [address] October, TDAP DX V06.1 [facility] [id number] [place] [address] October, [facility] [id number] [place] [address] October, Disturbance of skin sensation 782.0 ; Wrist pain, right 719.43 ; Hyperlipidemia 272.4 and Skin lesion of face 709.9 [facility] [id number] [place] [address] Sep, [facility] [address] [address] Sep, [facility] [id number] [address] 26 Aug, 2014 [facility] [place] [facility] [address] [id number] [place] [address] 26 Aug, 2014 [facility] [place] [facility] [address] [id number] [place] [address] 23 Aug, 2014 [facility] [place] [facility] [address] [id number] [place] [address] 23 Aug, 2014 [facility] [place] [facility] [address] [id number] [place] [address] 16 Aug, 2014 [facility] [place] [facility] [address] [id number] [place] [address] 16 Aug, 2014 [facility] [place] [facility] [address] [id number] [place] [address] 14 Aug, 2014 [facility] [place] [facility] [address] [id number] [place] [address] 14 Aug, 2014 [facility] [place] [facility] [address] [id number] [place] [address] Aug, [facility] [place] [facility] [address] [id number] [place] [address] Aug, [facility] [place] [facility] [address] [id number] [place] [address] Aug, [facility] [place] [facility] [address] [id number] [place] [address] Aug, [facility] [place] [facility] [address] [id number] [place] [address] Aug, [facility] [place] [facility] [address] [id number] [place] [address] Aug, [facility] [place] [facility] [address] [id number] [place] [address] Jul, [facility] [place] [facility] [address] [id number] [place] [address] Jul, [facility] [place] [facility] [address] [id number] [place] [address] Jul, [facility] [place] [facility] [address] [id number] [place] [address] Jul, [facility] [place] [facility] [address] [id number] [place] [address] Jul, [facility] [place] [facility] [address] [id number] [place] [address] Jul, [facility] [place] [facility] [address] [id number] [place] [address] Jun, [facility] [place] [facility] [address] [id number] [place] [address] Jun, [facility] [place] [facility] [address] [id number] [place] [address] Jun, [facility] [place] [facility] [address] [id number] [place] [address] Jun, [facility] [place] [facility] [address] [id number] [place] [address] Jun, [facility] [place] [facility] [address] [id number] [place] [address] Jun, [facility] [place] [facility] [address] [id number] [place] [address] Jun, [facility] [place] [facility] [address] [id number] [address] Jun, [facility] [place] [facility] [address] [id number] [place] [address] May, [facility] [place] [facility] [address] [id number] [place] [address] May, [facility] [place] [facility] [address] [id number] [place] [address] May, [facility] [place] [facility] [address] [id number] [place] [address] May, [facility] [place] [facility] [address] [id number] [place] [address] May, [facility] [place] [facility] [address] [id number] [place] [address] May, [facility] [place] [facility] [address] [id number] [place] [address] May, [facility] [place] [facility] [address] [id number] [place] [address] May, [facility] [place] [facility] [address] [id number] [place] [address] May, [facility] [place] [facility] [address] [id number] [place] [address] May, [facility] [place] [facility] [address] [id number] [place] [address] May, [facility] [place] [facility] [address] [id number] [place] [address] May, [facility] [place] [facility] [address] [id number] [place] [address] Apr, [facility] [place] [facility] [address] [id number] [place] [address] Apr, [facility] [place] [facility] [address] [id number] [place] [address] Apr, [facility] [place] [facility] [address] [id number] [place] [address] Apr, [facility] [place] [facility] [address] [id number] [place] [address] Apr, [facility] [place] [facility] [address] [id number] [place] [address] Apr, [facility] [place] [facility] [address] [id number] [place] [address] Apr, [facility] [place] [facility] [address] [id number] [place] [address] 14 Apr, 2014 [facility] [place] [facility] [address] [id number] [place] [address] Apr, [facility] [place] [facility] [address] [id number] [place] [address] Apr, [facility] [place] [facility] [address] [id number] [place] [address] Apr, [facility] [place] [facility] [address] [id number] [place] [address] Apr, [facility] [place] [facility] [address] [id number] [place] [address] Mar, [facility] [place] [facility] [address] [id number] [place] [address] Mar, [facility] [place] [facility] [address] [id number] [place] [address] Mar, [facility] [place] [facility] [address] [id number] [place] [address] Mar, [facility] [place] [facility] [address] [id number] [place] [address] 10 Feb, 2014 [facility] [place] [facility] [address] [id number] [place] [address] 10 Feb, 2014 [facility] [place] [facility] [address] [id number] [address] 05 Sep, 2013 [facility] [place] [facility] [address] [id number] [place] [address] 05 Sep, 2013 [facility] [place] [facility] [address] [id number] [place] [address] 05 Sep, 2013 [facility] [place] [facility] [address] [id number] [place] [address] 05 Sep, 2013 [facility] [place] [facility] [address] [id number] [place] [address] Jan, [facility] [place] [facility] [address] [id number] [place] [address] Jan, [facility] [place] [facility] [address] [id number] [place] [address] Jan, [facility] [place] [facility] [address] [id number] [place] [address] Jan, [facility] [place] [facility] [address] [id number] [place] [address] Jan, [facility] [place] [facility] [address] [id number] [place] [address] Jan, [facility] [place] [facility] [address] [id number] [place] [address] Jan, [facility] [place] [facility] [address] [id number] [place] [address] Jan, [facility] [place] [facility] [address] [id number] [place] [address] Jan, [facility] [place] [facility] [address] [id number] [place] [address] Jan, [facility] [place] [facility] [address] [id number] [place] [address] Jan, [facility] [place] [facility] [address] [id number] [place] [address] Jan, [facility] [place] [facility] [address] [id number] [place] [address] Jan, [facility] [place] [facility] [address] [id number] [place] [address] Jan, [facility] [place] [facility] [address] [id number] [place] [address] Dec, [facility] [place] [facility] [address] [id number] [place] [address] Dec, [facility] [place] [facility] [address] [id number] [place] [address] Dec, [facility] [place] [facility] [address] [id number] [place] [address] Dec, [facility] [place] [facility] [address] [id number] [place] [address] Nov, [facility] [place] [facility] [address] [id number] [place] [address] Nov, [facility] [place] [facility] [address] [id number] [place] [address] Nov, [facility] [place] [facility] [address] [id number] [place] [address] Nov, [facility] [place] [facility] [address] [id number] [place] [address] Nov, [facility] [place] [facility] [address] [id number] [place] [address] October, [facility] [place] [facility] [address] [id number] [place] [address] October, [facility] [place] [facility] [address] [id number] [place] [address] October, [facility] [place] [facility] [address] [id number] [place] [address] October, [facility] [place] [facility] [address] [id number] [place] [address] October, [facility] [place] [facility] [address] [id number] [place] [address] October, [facility] [place] [facility] [address] [id number] [place] [address] October, [facility] [place] [facility] [address] [id number] [place] [address] October, [facility] [place] [facility] [address] [id number] [place] [address] October, [facility] [place] [facility] [address] [id number] [place] [address] October, [facility] [place] [facility] [address] [id number] [place] [address] October, [facility] [place] [facility] [address] [id number] [place] [address] October, [facility] [place] [facility] [address] [id number] [place] [address] October, [facility] [place] [facility] [address] [id number] [place] [address] October, [facility] [place] [facility] [address] [id number] [place] [address] Sep, [facility] [place] [facility] [address] [id number] [place] [address] Sep, [facility] [place] [facility] [address] [id number] [place] [address] Sep, [facility] [place] [facility] [address] [id number] [place] [address] Sep, [facility] [place] [facility] [address] [id number] [place] [address] Sep, [facility] [place] [facility] [address] [id number] [place] [address] Sep, [facility] [place] [facility] [address] [id number] [place] [address] Sep, [facility] [place] [facility] [address] [id number] [place] [address] Sep, [facility] [place] [facility] [address] [id number] [place] [address] Sep, [facility] [place] [facility] [address] [id number] [place] [address] Sep, [facility] [place] [facility] [address] [id number] [place] [address] Sep, [facility] [place] [facility] [address] [id number] [place] [address] Sep, [facility] [place] [facility] [address] [id number] [place] [address] Sep, [facility] [place] [facility] [address] [id number] [place] [address] Sep, [facility] [place] [facility] [address] [id number] [place] [address] Sep, [facility] [place] [facility] [address] [id number] [place] [address] Aug, [facility] [place] [facility] [address] [id number] [place] [address] Aug, [facility] [place] [facility] [address] [id number] [place] [address] Aug, [facility] [place] [facility] [address] [id number] [place] [address] Aug, [facility] [place] [facility] [address] [id number] [place] [address] Jul, [facility] [place] [facility] [address] [id number] [place] [address] Jul, [facility] [place] [facility] [address] [id number] [place] [address] Jul, [facility] [place] [facility] [address] [id number] [place] [address] Jul, [facility] [place] [facility] [address] [id number] [place] [address] Jun, [facility] [place] [facility] [address] [id number] [place] [address] Jun, [facility] [place] [facility] [address] [id number] [place] [address] Jun, [facility] [place] [facility] [address] [id number] [place] [address] 15 Jun, 2013 [facility] [address] [id number] [place] [address] Jun, [facility] [address] [id number] [place] [address] Jun, [facility] [address] [id number] [place] [address] Jun, [facility] [address] [id number] [place] [address] Jun, [facility] [address] [id number] [place] [address] May, [facility] [address] [id number] [place] [address] 20 May, 2013 [facility] [address] [id number] [place] [address] 18 May, 2013 [facility] [address] [id number] [place] [address] 18 May, 2013 [facility] [address] [id number] [place] [address] 17 May, 2013 [facility] [address] [id number] [place] [address] 17 May, 2013 [facility] [place] [facility] [address] [id number] [place] [address] 17 May, 2013 [facility] [place] [facility] [address] [id number] [place] [address] 17 May, 2013 [facility] [place] [facility] [address] [id number] [place] [address] 16 May, 2013 [facility] [place] [facility] [address] [id number] [place] [address] 16 May, 2013 [facility] [place] [facility] [address] [id number] [place] [address] 14 May, 2013 [facility] [address] [id number] [place] [address] 14 May, 2013 [facility] [place] [facility] [address] [id number] [place] [address] 13 May, 2013 [facility] [place] [facility] [address] [id number] [place] [address] 13 May, 2013 [facility] [place] [facility] [address] [id number] [place] [address] 12 May, 2013 [facility] [place] [facility] [address] [id number] [place] [address] 12 May, 2013 [facility] [place] [facility] [address] [id number] [place] [address] 11 May, 2013 [facility] [place] [facility] [address] [id number] [place] [address] May, [facility] [place] [facility] [address] [id number] [place] [address] Apr, [facility] [place] [facility] [address] [id number] [place] [address] Apr, [facility] [place] [facility] [address] [id number] [place] [address] Apr, [facility] [place] [facility] [address] [id number], [place] [address] Apr, [facility] [place] [facility] [address] [id number], [place] [address] 27 Aug, 2012 [facility] [place] [facility] [address] [id number] [place] [address] 18 Aug, 2012 [facility] [place] [facility] [address] [id number] [place] [address] 06 Aug, 2012 [facility] [place] [facility] [address] [id number] [place] [address] 05 Aug, 2012 [facility] [place] [facility] [address] [id number] [place] [address] 04 Jul, 2012 [facility] [address] [id number] [place] [address] Jun, [facility] [address] [id number] [place] [address] Jun, [facility] [address] [id number] [place] [address] Jun, [facility] [address] [id number] [place] [address] Jun, [facility] [address] [id number] [place] [address] May, [facility] [address] [id number] [place] [address] May, [facility] [address] [id number] [place] [address] May, [facility] [address] [id number] [place] [address] May, [facility] [address] [id number] [place] [address] May, [facility] [address] [facility] [id number] [place] [address] May, [facility] [address] [id number] [place] [address] May, [facility] [address] [id number] [place] [address] Apr, [facility] [address] [id number] [place] [address] Apr, [facility] [address] [id number] [place] [address] Apr, [facility] [address] [id number] [place] [address] Apr, [facility] [place] [facility] [address] [id number] [place] [address] Apr, [facility] [place] [facility] [address] [id number] [place] [address] Apr, [facility] [place] [facility] [address] [id number] [place] [address] Apr, [facility] [place] [facility] [address] [id number] [place] [address] Mar, [facility] [place] [facility] [address] [id number] [place] [address] Mar, [facility] [place] [facility] [address] [id number] [place] [address] Mar, [facility] [place] [facility] [address] [id number] [place] [address] Mar, [facility] [place] [facility] [address] [id number], [place] [address] Mar, [facility] [place] [facility] [address] [id number], [place] [address] Mar, [facility] [place] [facility] [address] [id number], [place] [address] Mar, [facility] [place] [facility] [address] [id number], [place] [address] Mar, [facility] [place] [facility] [address] [id number], [place] [address] Mar, [facility] [place] [facility] [address] [id number], [place] [address] Mar, [facility] [place] [facility] [address] [id number], [place] [address] Mar, [facility] [place] [facility] [address] [facility] [id number], [place] [address] Mar, [facility] [place] [facility] [address] [id number], [place] [address] Feb, [facility] [place] [facility] [address] [id number] [place] [address] Jan, [facility] [place] [facility] [address] [id number] [place] [address] Jan, [facility] [place] [facility] [address] [id number] [place] [address] Jan, [facility] [place] [facility] [address] [id number] [place] [address] Jan, [facility] [place] [facility] [address] [id number] [place] [address] Jan, [facility] [place] [facility] [address] [id number] [place] [address] Dec, [facility] [place] [facility] [address] [id number] [place] [address] Dec, [facility] [place] [facility] [address] [id number] [place] [address] Nov, [facility] [place] [facility] [address] [id number] [place] [address] Nov, [facility] [place] [facility] [address] [id number] [place] [address] Nov, [facility] [place] [facility] [address] [id number] [place] [address] October, [facility] [place] [facility] [address] [id number] [place] [address] October, [facility] [place] [facility] [address] [id number] [place] [address] October, [facility] [place] [facility] [address] [id number] [place] [address] October, [facility] [place] [facility] [address] [id number] [place] [address] October, [facility] [place] [facility] [address] [id number] [place] [address] 15 Oct, 2011 [facility] [place] [facility] [address] [id number] [place] [address] 08 Oct, 2011 [facility] [place] [facility] [address] [id number] [place] [address] Sep, [facility] [place] [facility] [address] [id number] [place] [address] Sep, [facility] [place] [facility] [address] [id number] [place] [address] 26 Sep, 2011 [facility] [place] [facility] [address] [id number] [place] [address] 25 Sep, 2011 [facility] [place] [facility] [address] [id number] [place] [address] 24 Sep, 2011 [facility] [place] [facility] [address] [id number] [place] [address] 19 Sep, 2011 [facility] [place] [facility] [address] [id number] [place] [address] 17 Sep, 2011 [facility] [place] [facility] [address] [id number] [place] [address] 16 Sep, 2011 [facility] [place] [facility] [address] [id number] [place] [address] 16 Sep, 2011 [facility] [place] [facility] [address] [id number] [place] [address] 14 Sep, 2011 [facility] [place] [facility] [address] [id number] [place] [address] 13 Sep, 2011 [facility] [place] [facility] [address] [id number] [place] [address] 10 Sep, 2011 [facility] [place] [facility] [address] [id number] [place] [address] 09 Sep, 2011 [facility] [place] [facility] [address] [id number] [place] [address] 27 Aug, 2011 [facility] [place] [facility] [address] [id number] [place] [address] 12 Aug, 2011 [facility] [place] [facility] [address] [id number] [place] [address] 08 Aug, 2011 [facility] [place] [facility] [address] [id number] [place] [address] 06 Aug, 2011 [facility] [place] [facility] [address] [id number] [place] [address] 28 Jul, 2011 [facility] [place] [facility] [address] [id number] [place] [address] 22 Jul, 2011 [facility] [place] [facility] [address] [id number] [place] [address] 16 Jul, 2011 [facility] [place] [facility] [address] [id number] [place] [address] 15 Jul, 2011 [facility] [place] [facility] [address] [id number] [place] [address] 14 Jul, 2011 [facility] [place] [facility] [address] [id number] [place] [address] 10 Jul, 2011 [facility] [place] [facility] [address] [id number] [place] [address] Jun, [facility] [place] [facility] [address] [id number] [place] [address] Jun, [facility] [place] [facility] [address] [id number] [place] [address] Jun, [facility] [place] [facility] [address] [id number] [place] [address] Jun, [facility] [place] [facility] [address] [id number] [place] [address] Jun, [facility] [place] [facility] [address] [id number] [place] [address] May, [facility] [place] [facility] [address] [id number] [place] [address] May, [facility] [place] [facility] [address] [id number] [place] [address] May, [facility] [place] [facility] [address] [id number] [place] [address] 14 May, 2011 [facility] [place] [facility] [address] [id number] [place] [address] May, [facility] [place] [facility] [address] [id number] [place] [address] May, [facility] [place] [facility] [address] [id number] [place] [address] 05 May, 2011 [facility] [place] [facility] [address] [id number] [place] [address] 15 Apr, 2011 [facility] [place] [facility] [address] [id number] [place] [address] 15 Apr, 2011 [facility] [place] [facility] [address] [id number] [place] [address] Apr, [facility] [place] [facility] [address] [id number] [place] [address] Apr, [facility] [place] [facility] [address] [id number] [place] [address] Apr, [facility] [place] [facility] [address] [id number] [place] [address] Apr, [facility] [place] [facility] [address] [id number] [place] [address] Mar, [facility] [place] [facility] [address] [id number] [place] [address] Mar, [facility] [place] [facility] [address] [id number] [place] [address] Mar, [facility] [place] [facility] [address] [id number] [place] [address] Mar, [facility] [address] [id number] [place] [address] Jan, [facility] [place] [facility] [address] [id number] [place] [address] 19 Dec, 2010 [facility] [place] [facility] [address] [id number] [place] [address] 13 Dec, 2010 [facility] [place] [facility] [address] [id number] [place] [address] October, [facility] [place] [facility] [address] [id number] [place] [address] Sep, [facility] [place] [facility] [address] [id number] [place] [address] 14 Sep, 2010 [facility] [place] [facility] [address] [id number] [place] [address] 17 Jul, 2010 [facility] [place] [facility] [address] [id number] [place] [address] 16 Jul, 2010 [facility] [place] [facility] [address] [id number] [place] [address] May, [facility] [place] [facility] [address] [id number] [place] [address] May, [facility] [place] [facility] [address] [id number] [place] [address] 08 May, 2010 [facility] [place] [facility] [address] [id number] [place] [address] May, [facility] [place] [facility] [address] [id number] [place] [address] Apr, [facility] [place] [facility] [address] [id number] [place] [address] Apr, [facility] [place] [facility] [address] [id number] [place] [address] Apr, [facility] [place] [facility] [address] [id number] [place] [address] 18 Apr, 2010 [facility] [place] [facility] [address] [id number] [place] [address] Apr, [facility] [place] [facility] [address] [id number] [place] [address] 21 Mar, 2010 [facility] [place] [facility] [address] [id number] [place] [address] 14 Mar, 2010 [facility] [place] [facility] [address] [id number] [place] [address] 13 Mar, 2010 [facility] [place] [facility] [address] [id number] [place] [address] 12 Mar, 2010 [facility] [place] [facility] [address] [id number] [place] [address] Jan, [facility] [place] [facility] [address] [facility] [id number] [place] [address] 15 Dec, 2009 [facility] [place] [facility] [address] [id number] [place] [address] 10 Sep, 2009 [facility] [place] [facility] [address] [facility] [id number] [place] [address] 08 May, 2009 [facility] [place] [facility] [address] [facility] [id number] [place] [address] 06 May, 2009 [facility] [place] [facility] [address] [facility] [id number] [place] [address] May, [facility] [place] [facility] [address] [facility] [id number] [address] 17 Apr, 2009 [facility] [place] [facility] [address] [id number] [place] [address] 17 Apr, 2009 [facility] [place] [facility] [address] [facility] [id number] [place] [address] Apr, [facility] [place] [facility] [address] [id number], [place] [address] Apr, [facility] [address] [facility] [id number], [place] [address] Apr, [facility] [address] [facility] [id number], [place] [address] Mar, [facility] [address] [id number] [address] Mar, [facility] [address] [id number], [place] [address] Jul, IMMUNIZATIONS No Known Immunizations SOCIAL HISTORY [...] 03/2018 Surgical History mesh removed and replaced 10/2018 Hospitalization History Cellulitis-[facility] 12/20/15 Hospitalization History [facility]- Abd pain 03/07/2017 Hospitalization History [facility]- Abd pain 03/14/2017 Hospitalization History [facility]- No bowel movement, rash 04/13/2017 Hospitalization History [facility]- Abd pain r/t kidney surgery on 04/10/17 04/17/2017 Hospitalization History [facility]- Abd pain r/t kidney surgery on 04/10/17 04/18/2017 Hospitalization History [facility]- Lower abd pain 04/30/2017 Hospitalization History [facility]- Cannot urinate 05/30/2017 Hospitalization History [facility]- Pancreatitis Sx 06/29/2017 Hospitalization History [facility]- Stomach pain 07/22/2017 Hospitalization History [facility]- Left side pain 08/12/2017 Hospitalization History [facility]- Incision site infection 08/30/2017 Hospitalization History [facility]- Post Op Seroma/Hematoma Left Abdomen. Discharged 09/04/17- Dr Daniel 09/02/2017 Hospitalization History [facility]- Right shoulder and back pain 10/22/2017 Hospitalization History [facility]- Shoulder/Back pain 11/11/2017 Hospitalization History [facility]- Right shoulder blade pain 12/04/2017 Hospitalization History [facility]- C-Diff 12/13/2017 Hospitalization History C diff et MRSA 12/27/2017 Hospitalization History Bowel abduction [facility] 10/2018
--- OUTSIDE RECORDS SUMMARY | 2019-01-07 11:17 | XMS REPORT ---
Author Author SAI CARMEN [facility] Address [address] [place] [address] Care Team Providers Care Creative Lead Name Role Phone MARCIO GIBBSY Unavailable PROBLEMS Type Condition ICD9-CM Code [id number] Code Onset Dates Condition Status SNOMED Code Problem History of renal cell carcinoma Z85.528 Active 951636577 Problem Right carpal tunnel syndrome G56.01 Active 745977989882204 Problem Nodule of left lung R91.1 Active 712405683 Problem Moderate episode of recurrent major depressive disorder F33.1 Active 510857124 Problem Restless leg syndrome G25.81 Active 26462810 Problem Morbid (severe) obesity due to excess calories E66.01 Active 611997199 Problem Chronic tension-type headache, intractable G44.221 Active 941137733 Problem Asthma J45.909 Active 783404278 Problem Chronic pancreatitis K86.1 Active 402896696 Problem Atelectasis J98.11 Active 01416933 Problem Polydipsia R63.1 Active 88187974 Problem Chronic post-traumatic stress disorder (PTSD) F43.12 Active 393025318 Problem Trichotillomania F63.3 Active 55404094 Problem Chronic fatigue R53.82 Active 11120728 Problem Intestinal malabsorption, unspecified K90.9 Active 53426680 Problem Primary osteoarthritis of right knee M17.11 Active 552252399400176 Problem Social phobia, generalized F40.11 Active 55648283 Problem Hirsuties L68.0 Active 521187923 Problem Social phobia, unspecified F40.10 Active 87418959 Problem Hyperlipidemia, mixed E78.2 Active 868850544 Problem FH: polycystic ovary Z84.2 Active 434315315 Problem Obesities, morbid E66.01 Active 587961624 Problem Menopausal symptoms N95.1 Active 44011597 Problem Conflict between patient and family Z63.9 Active 68969720 Problem Morbid obesity E66.01 Active 065376305 ALLERGIES No Information ENCOUNTERS Encounter Location Date Diagnosis [facility] [id number] [place] [address] Jan, [facility] [id number] [place] [address] Dec, [facility] [id number] [place] [address] Dec, [facility] [address] [address] Dec, Morbid obesity E66.01 ; Hyperlipidemia, mixed E78.2 ; Chronic pancreatitis K86.1 ; Restless leg syndrome G25.81 ; Nodule of left lung R91.1 ; History of renal cell carcinoma Z85.528 and Leg swelling M79.89 [facility] [id number] [place] [address] Nov, [facility] [id number] [place] [address] Nov, [facility] [id number] [place] [address] Nov, [facility] [id number] [place] [address] Nov, Other acute postprocedural pain G89.18 and Unspecified abdominal pain R10.9 [facility] [id number] [place] [address] October, [facility] [id number] [place] [address] October, Social phobia, generalized F40.11 ; Conflict between patient and family Z63.9 and Morbid obesity E66.01 [facility] [id number] [place] [address] October, [facility] [id number] [place] [address] October, [facility] [address] [address] October, [facility] [id number] [address] October, [facility] [address] [address] October, [facility] [address] [address] October, [facility] [address] [address] October, [facility] [address] [address] October, Morbid obesity E66.01 ; Routine gynecological examination Z01.419 and Menopausal symptoms N95.1 [facility] [address] [address] October, [facility] [address] [address] Sep, [facility] [address] [address] Sep, [facility] [id number] [place] [address] Sep, [facility] [address] [address] Sep, [facility] [address] [address] Sep, Lower extremity edema R60.0 [facility] [address] [address] Sep, [facility] [address] [address] Sep, Lower extremity edema R60.0 and Morbid obesity E66.01 [facility] [address] [address] Sep, [facility] [address] [facility] [id number] [address] Sep, [facility] [address] [address] Aug, [facility] [address] [address] Aug, Obesities, morbid E66.01 and Morbid obesity E66.01 [facility] [address] [address] Aug, [address] [address] Jul, [facility] [address] [address] Jul, [facility] [address] [address] Jul, [facility] [address] [address] Jul, [facility] [address] [address] Jul, Numbness of right hand R20.0 [facility] [address] [address] Jul, Numbness of right hand R20.0 [facility] [id number] [address] Jul, [facility] [address] [address] Jul, [facility] [address] [address] Jul, Right-sided thoracic back pain M54.6 [facility] [address] [address] Jul, [facility] [address] [address] Jul, [facility] [id number] [place] [address] Jul, [facility] [id number] [place] [address] Jul, [place] [address] [address] Jun, [facility] [id number] [place] [address] Jun, Acute pain of right shoulder M25.511 ; Numbness of right hand R20.0 and Trapezius muscle spasm M62.838 [facility] [id number] [place] [address] Jun, [facility] [facility] [id number] [place] [address] Jun, [facility] [facility] [id number] [place] [address] Jun, Cough R05 ; BMI 50.0-59.9, adult Z68.43 and Morbid obesity E66.01 [place] [address] [place] [address] Jun, [facility] [id number] [place] [address] Jun, [facility] [id number] [place] [address] 13 Jun, 2018 BMI 45.0-49.9, adult Z68.42 and Acute non-recurrent maxillary sinusitis J01.00 [facility] [id number] [place] [address] 09 Jun, 2018 Acute sinusitis J01.90 ; Dysuria R30.0 and BMI 45.0-49.9, adult Z68.42 [facility] [facility] [address] [address] Jun, [facility] [id number] [place] [address] Jun, [facility] [id number] [place] [address] May, [facility] [id number] [place] [address] May, [facility] [id number] [place] [address] May, [facility] [id number] [place] [address] May, [facility] [id number] [place] [address] May, [facility] [id number] [place] [address] Apr, Generalized social phobia F40.11 ; Trichotillomania F63.3 ; Chronic post-traumatic stress disorder (PTSD) F43.12 and BMI 45.0-49.9, adult Z68.42 [facility] [id number] [place] [address] Apr, [facility] [id number] [place] [address] Apr, Chronic tension-type headache, intractable G44.221 [facility] [id number] [place] [address] Apr, [facility] [id number] [place] [address] Mar, [facility] [id number] [place] [address] Mar, BMI 45.0-49.9, adult Z68.42 and Pimples R23.8 [facility] [id number] [place] [address] Mar, [facility] [id number] [place] [address] Mar, [facility] [id number] [place] [address] Mar, Decreased urination R34 ; Chronic fatigue R53.82 ; Peripheral edema R60.9 ; Diarrhea, unspecified type R19.7 ; Non-intractable vomiting with nausea, unspecified vomiting type R11.2 ; BMI 45.0-49.9, adult Z68.42 and Chronic post-traumatic stress disorder (PTSD) F43.12 [facility] [id number] [place] [address] Mar, Intestinal malabsorption, unspecified K90.9 ; Diarrhea, unspecified R19.7 ; Urinary urgency R39.15 ; Rectal bleeding K62.5 and Decreased urine output R34 [facility] [id number] [place] [address] Mar, Decreased urine output R34 [facility] [id number] [place] [address] Mar, Rectal bleeding K62.5 [place] [id number] [place] [address] Mar, Rectal bleeding K62.5 [facility] [id number] [place] [address] Mar, Urinary urgency R39.15 [place] [id number] [place] [address] Mar, Urinary urgency R39.15 [facility] [id number] [place] [address] Mar, Primary osteoarthritis of right knee M17.11 and BMI 45.0-49.9, adult Z68.42 [facility] [id number] [place] [address] Mar, [facility] [address] [address] Feb, Left upper arm pain M79.622 [facility] [id number] [place] [address] Feb, [facility] [id number] [place] [address] Jan, Acute pain of right knee M25.561 ; Right upper quadrant abdominal pain R10.11 and BMI 45.0-49.9, adult Z68.42 [facility] [id number] [place] [address] Jan, [facility] [id number] [place] [address] Jan, [facility] [id number] [place] [address] Dec, [facility] [address] [place] [address] Dec, Intestinal malabsorption, unspecified K90.9 and Diarrhea, unspecified R19.7 [facility] [id number] [place] [address] Dec, [facility] [id number] [place] [address] Dec, Strep throat J02.0 ; Intestinal malabsorption, unspecified K90.9 ; Diarrhea, unspecified R19.7 ; Postoperative seroma involving digestive system after non-digestive system procedure K91.873 ; Hyperlipidemia, mixed E78.2 and BMI 45.0-49.9, adult Z68.42 [facility] [address] [place] [address] Dec, [facility] [id number] [place] [address] Dec, Nausea R11.0 [facility] [address] [address] Dec, [facility] [address] [address] Dec, Sore throat J02.9 ; Strep throat J02.0 and BMI 45.0-49.9, adult Z68.42 [facility] [address] [address] Dec, [facility] [address] [address] Dec, [facility] [id number] [place] [address] Dec, [facility] [address] [address] Dec, [facility] [id number] [place] [address] Dec, [facility] [address] [address] Dec, [facility] [address] [address] Dec, [facility] [address] [address] Dec, [facility] [address] [address] Dec, Clostridium difficile colitis A04.72 ; Intractable vomiting with nausea, unspecified vomiting type R11.2 and BMI 45.0-49.9, adult Z68.42 [facility] [address] [address] Dec, [facility] [address] [address] Nov, [facility] [address] [address] Nov, [place] [address] [place] [address] Nov, [facility] [place] [id number] [place] [address] Nov, [facility] [place] [id number] [place] [address] Nov, [place] [id number] [place] [address] Nov, Hyperlipidemia, mixed E78.2 [facility] [place] [id number] [place] [address] Nov, Acute suppurative otitis media of right ear without spontaneous rupture of tympanic membrane, recurrence not specified H66.001 and BMI 45.0-49.9, adult Z68.42 [facility] [id number] [place] [address] Nov, Hyperlipidemia, mixed E78.2 [facility] [id number] [place] [address] Nov, [place] [id number] [place] [address] Nov, [facility] [id number] [place] [address] Nov, Nodule of left lung R91.1 [facility] [facility] [id number] [place] [address] Nov, Medicare annual wellness visit, initial Z00.00 [...] adult Z68.42 and Encounter for immunization Z23 [place] [id number] [place] [address] October, [place] [address] [address] October, Nodule of left lung R91.1 [place] [address] [address] October, Nodule of left lung R91.1 [place] [id number] [place] [address] October, Recurrent major depressive disorder, in partial remission F33.41 ; Restless leg syndrome G25.81 ; Generalized social phobia F40.11 ; Chronic post-traumatic stress disorder (PTSD) F43.12 ; BMI 45.0-49.9, adult Z68.42 and Trichotillomania F63.3 [place] [id number] [place] [address] October, [place] [id number] [place] [address] Sep, Chronic fatigue R53.82 and BMI 45.0-49.9, adult Z68.42 [facility] [id number] [place] [address] Aug, [place] [id number] [place] [address] Jul, Restless leg syndrome G25.81 and B12 deficiency E53.8 [place] [id number] [place] [address] Jul, [place] [id number] [place] [address] Jul, [place] [id number] [place] [address] Jun, [place] [address] [address] Jun, Fatigue, unspecified type R53.83 ; History of renal cell carcinoma Z85.528 ; Chronic pancreatitis K86.1 ; Restless leg syndrome G25.81 ; Dark urine R82.99 and BMI 45.0-49.9, adult Z68.42 [place] [id number] [place] [address] Jun, [place] [id number] [place] [address] Jun, [place] [id number] [place] [address] Jun, [place] [id number] [place] [address] Jun, [place] [id number] [place] [address] May, Chronic post-traumatic stress disorder (PTSD) F43.12 ; Moderate episode of recurrent major depressive disorder F33.1 ; Trichotillomania F63.3 and Generalized social phobia F40.11 [place] [address] [place] [address] May, [place] [address] [place] [address] May, Chronic post-traumatic stress disorder (PTSD) F43.12 ; Moderate episode of recurrent major depressive disorder F33.1 ; Trichotillomania F63.3 and Generalized social phobia F40.11 [place] [address] [address] 07 May, 2017 Hyperlipidemia, mixed E78.2 ; Morbid (severe) obesity due to excess calories E66.01 ; Chronic post-traumatic stress disorder (PTSD) F43.12 ; Moderate episode of recurrent major depressive disorder F33.1 ; Trichotillomania F63.3 and Generalized social phobia F40.11 [place] [id number] [place] [address] Apr, [place] [id number] [place] [address] Apr, Hyperlipidemia, mixed E78.2 ; Morbid (severe) obesity due to excess calories E66.01 ; Chronic post-traumatic stress disorder (PTSD) F43.12 ; Moderate episode of recurrent major depressive disorder F33.1 ; Trichotillomania F63.3 and Generalized social phobia F40.11 [place] [id number] [place] [address] Apr, Trichotillomania F63.3 ; Generalized social phobia F40.11 ; Chronic post-traumatic stress disorder (PTSD) F43.12 and Moderate episode of recurrent major depressive disorder F33.1 [place] [id number] [place] [address] Apr, [place] [id number] [place] [address] Apr, [place] [id number] [place] [address] Mar, Moderate episode of recurrent major depressive disorder F33.1 ; Trichotillomania F63.3 ; Chronic post-traumatic stress disorder (PTSD) F43.12 ; Generalized social phobia F40.11 and Restless leg syndrome G25.81 [place] [id number] [place] [address] Mar, [place] [id number] [place] [address] Mar, [place] [id number] [place] [address] Feb, Left kidney mass N28.89 [place] [id number] [place] [address] Jan, [place] [id number] [place] [address] Dec, Polydipsia R63.1 ; Chronic pancreatitis K86.1 and Fatigue, unspecified type R53.83 [facility] [id number] [place] [address] Nov, [facility] [id number] [place] [address] Nov, [facility] [id number] [place] [address] Nov, Headache around the eyes R51 [facility] [id number] [place] [address] Nov, [facility] [id number] [place] [address] October, STD exposure Z20.2 [facility] [id number] [place] [id number] October, STD exposure Z20.2 [facility] [id number] [place] [id number] October, Chronic post-traumatic stress disorder (PTSD) F43.12 ; Generalized social phobia F40.11 ; Trichotillomania F63.3 and Restless leg syndrome G25.81 [facility] [id number] [address] October, [facility] [id number] [place] [id number] Sep, [facility] [id number] [place] [phone] Aug, [facility] [id number] [place] [phone] Aug, [facility] [id number] [address] Aug, Neck mass R22.1 [facility] [address] [place] [address] 03 Aug, 2016 Atelectasis J98.11 [place] [address] [address] 28 Jul, 2016 Hyperlipidemia, mixed E78.2 ; Atypical pneumonia J18.9 and Neck mass R22.[address] [address] 15 Jul, 2016 Hemoptysis R04.2 [place] [address] [address] 08 Jul, 2016 Acute non-recurrent pansinusitis J01.40 ; Hemoptysis R04.2 ; Polydipsia R63.1 and Malaise R53.81 [facility] [place] [id number] [place] [phone] May, Other viral agents as the cause of diseases classified elsewhere B97.89 and Acute upper respiratory infection, unspecified J06.9 [facility] [place] [id number] [place] [phone] Mar, Nausea R11.0 [facility] [address] [address] 28 Dec, 2015 Hives L50.9 [place] [id number] [place] [address] 14 Dec, 2015 [facility] [place] [id number] [place] [id number] 10 Dec, 2015 Cutaneous abscess of limb, unspecified L02.419 ; Cellulitis of unspecified part of limb L03.119 ; Encounter for incision and drainage procedure Z01.89 and Encounter for recheck of abscess following incision and drainage Z09 [facility] [place] [id number] [place] [id number] 09 Dec, 2015 Abscess of leg, right L02.[address] [address] Dec, Cellulitis of unspecified part of limb L03.119 and Cutaneous abscess of limb, unspecified L02.419 [place] [id number] [place] [phone] Dec, [place] [id number] [place] [id number] Dec, [facility] [place] [id number] [place] [phone] Aug, [place] [id number] [place] [phone] Aug, [facility] [place] [id number] [place] [address] Jul, Pain in unspecified wrist M25.539 and Back pain, thoracic M54.6 [facility] [facility] [place] [id number] [place] [address] Jun, Strain of right wrist, initial encounter S66.911A [place] [address] [id number] [place] [address] Jun, Chronic pancreatitis, unspecified pancreatitis type K86.1 ; Hirsuties L68.0 ; Morbid (severe) obesity due to excess calories E66.01 ; Chronic pancreatitis K86.1 and Asthma J45.909 [place] [id number] [place] [address] May, [place] [id number] [place] [address] May, Hyperlipidemia, mixed E78.2 and Muscle spasm of back M62.830 [place] [id number] [place] [address] 30 Apr, 2015 [place] [id number] [place] [address] Apr, Torticollis M43.6 [place] [id number] [place] [address] Apr, Right-sided thoracic back pain M54.6 [facility] [id number] [place] [address] Mar, Rash R21 [facility] [id number] [place] [address] Mar, [facility] [id number] [place] [address] Jan, [facility] [id number] [place] [address] Dec, [facility] [id number] [place] [address] Dec, Urinary frequency 788.41 and Nocturia more than twice per night 788.43 [facility] [id number] [place] [address] Nov, [facility] [id number] [place] [address] Nov, [facility] [id number] [place] [address] Nov, Abdominal pain 789.00 [facility] [id number] [place] [address] October, TDAP DX V06.1 [facility] [id number] [place] [address] October, [facility] [id number] [place] [address] October, Disturbance of skin sensation 782.0 ; Wrist pain, right 719.43 ; Hyperlipidemia 272.4 and Skin lesion of face 709.9 [facility] [id number] [place] [address] Sep, [facility] [address] [place] [address] 13 Sep, 2014 [facility] [place] [facility] [address] [id number] [place] [address] 26 Aug, 2014 [facility] [place] [facility] [address] [id number] [place] [address] 26 Aug, 2014 [facility] [place] [facility] [address] [id number] [place] [address] 23 Aug, 2014 [facility] [place] [facility] [address] [id number] [place] [address] 23 Aug, 2014 [facility] [place] [facility] [address] [id number] [place] [address] 16 Aug, 2014 [facility] [place] [facility] [address] [id number] [place] [address] 16 Aug, 2014 [facility] [place] [facility] [address] [id number] [place] [address] 14 Aug, 2014 [facility] [place] [facility] [address] [id number] [place] [address] 14 Aug, 2014 [facility] [place] [facility] [address] [id number] [place] [address] Aug, [facility] [place] [facility] [address] [id number] [place] [address] Aug, [facility] [place] [facility] [address] [id number] [place] [address] 04 Aug, 2014 [facility] [place] [facility] [address] [id number] [place] [address] Aug, [facility] [place] [facility] [address] [id number] [place] [address] Aug, [facility] [place] [facility] [address] [id number] [place] [address] Aug, [facility] [place] [facility] [address] [id number] [place] [address] Jul, [facility] [place] [facility] [address] [id number] [place] [address] Jul, [facility] [place] [facility] [address] [id number] [place] [address] Jul, [facility] [place] [facility] [address] [id number] [place] [address] Jul, [facility] [place] [facility] [address] [id number] [place] [address] Jul, [facility] [place] [facility] [address] [id number] [place] [address] Jul, [facility] [place] [facility] [address] [id number] [place] [address] Jun, [facility] [place] [facility] [address] [id number] [place] [address] Jun, [facility] [place] [facility] [address] [id number] [place] [address] Jun, [facility] [place] [facility] [address] [id number] [place] [address] Jun, [facility] [place] [facility] [address] [id number] [place] [address] Jun, [facility] [place] [facility] [address] [id number] [place] [address] Jun, [facility] [place] [facility] [address] [id number] [address] Jun, [facility] [place] [facility] [address] [id number] [place] [address] Jun, [facility] [place] [facility] [address] [id number] [place] [address] May, [facility] [place] [facility] [address] [id number] [place] [address] May, [facility] [place] [facility] [address] [id number] [place] [address] May, [facility] [place] [facility] [address] [id number] [place] [address] May, [facility] [place] [facility] [address] [id number] [place] [address] May, [facility] [place] [facility] [address] [id number] [place] [address] May, [facility] [place] [facility] [address] [id number] [place] [address] May, [facility] [place] [facility] [address] [id number] [place] [address] May, [facility] [place] [facility] [address] [id number] [place] [address] May, [facility] [place] [facility] [address] [id number] [place] [address] May, [facility] [place] [facility] [address] [id number] [place] [address] May, [facility] [place] [facility] [address] [id number] [place] [address] May, [facility] [place] [facility] [address] [id number] [place] [address] Apr, [facility] [place] [facility] [address] [id number] [place] [address] Apr, [facility] [place] [facility] [address] [id number] [place] [address] Apr, [facility] [place] [facility] [address] [id number] [place] [address] Apr, [facility] [place] [facility] [address] [id number] [place] [address] Apr, [facility] [place] [facility] [address] [id number] [place] [address] Apr, [facility] [place] [facility] [address] [id number] [place] [address] 14 Apr, 2014 [facility] [place] [facility] [address] [id number] [place] [address] 14 Apr, 2014 [facility] [place] [facility] [address] [id number] [place] [address] 13 Apr, 2014 [facility] [place] [facility] [address] [id number] [place] [address] 13 Apr, 2014 [facility] [place] [facility] [address] [id number] [place] [address] Apr, [facility] [place] [facility] [address] [id number] [place] [address] Apr, [facility] [place] [facility] [address] [id number] [place] [address] 14 Mar, 2014 [facility] [place] [facility] [address] [id number] [place] [address] 14 Mar, 2014 [facility] [place] [facility] [address] [id number] [place] [address] 02 Mar, 2014 [facility] [place] [facility] [address] [id number] [place] [address] 02 Mar, 2014 [facility] [place] [facility] [address] [id number] [place] [address] 10 Feb, 2014 [facility] [place] [facility] [address] [id number] [place] [address] 10 Feb, 2014 [facility] [place] [facility] [address] [id number] [place] [address] 05 Sep2013 [facility] [place] [facility] [address] [id number] [place] [address] 05 Sep, 2013 [facility] [place] [facility] [address] [id number] [place] [address] 05 Sep2013 [facility] [place] [facility] [address] [id number] [place] [address] Feb, [facility] [place] [facility] [address] [id number] [place] [address] Jan, [facility] [place] [facility] [address] [id number] [place] [address] Jan, [facility] [place] [facility] [address] [id number] [place] [address] Jan, [facility] [place] [facility] [address] [id number] [place] [address] Jan, [facility] [place] [facility] [address] [id number] [place] [address] Jan, [facility] [place] [facility] [address] [id number] [place] [address] Jan, [facility] [place] [facility] [address] [id number] [place] [address] Jan, [facility] [place] [facility] [address] [id number] [place] [address] Jan, [facility] [place] [facility] [address] [id number] [place] [address] Jan, [facility] [place] [facility] [address] [id number] [place] [address] Jan, [facility] [place] [facility] [address] [id number] [place] [address] Jan, [facility] [place] [facility] [address] [id number] [address] Jan, [facility] [place] [facility] [address] [id number] [place] [address] Jan, [facility] [place] [facility] [address] [id number] [place] [address] Jan, [facility] [place] [facility] [address] [id number] [place] [address] Dec, [facility] [place] [facility] [address] [id number] [place] [address] Dec, [facility] [place] [facility] [address] [id number] [place] [address] Dec, [facility] [place] [facility] [address] [id number] [place] [address] Dec, [facility] [place] [facility] [address] [id number] [place] [address] Nov, [facility] [place] [facility] [address] [id number] [place] [address] Nov, [facility] [place] [facility] [address] [id number] [place] [address] Nov, [facility] [place] [facility] [address] [id number] [place] [address] Nov, [facility] [place] [facility] [address] [id number] [place] [address] Nov, [facility] [place] [facility] [address] [id number] [place] [address] October, [facility] [place] [facility] [address] [id number] [place] [address] October, [facility] [place] [facility] [address] [id number] [place] [address] October, [facility] [place] [facility] [address] [id number] [place] [address] October, [facility] [place] [facility] [address] [id number] [place] [address] October, [facility] [place] [facility] [address] [id number] [place] [address] October, [facility] [place] [facility] [address] [id number] [place] [address] October, [facility] [place] [facility] [address] [id number] [place] [address] October, [facility] [place] [facility] [address] [id number] [place] [address] October, [facility] [place] [facility] [address] [id number] [place] [address] October, [facility] [place] [facility] [address] [id number] [place] [address] October, [facility] [place] [facility] [address] [id number] [place] [address] October, [facility] [address] [id number] [place] [address] October, [facility] [place] [facility] [address] [id number] [place] [address] October, [facility] [address] [id number] [place] [address] Sep, [facility] [place] [facility] [address] [id number] [place] [address] Sep, [facility] [place] [facility] [address] [id number] [place] [address] Sep, [facility] [place] [facility] [address] [id number] [place] [address] Sep, [facility] [place] [facility] [address] [id number] [place] [address] Sep, [facility] [place] [facility] [address] [id number] [place] [address] Sep, [facility] [place] [facility] [address] [id number] [place] [address] Sep, [facility] [place] [facility] [address] [id number] [place] [address] Sep, [facility] [place] [facility] [address] [id number] [place] [address] Sep, [facility] [place] [facility] [address] [id number] [place] [address] Sep, [facility] [place] [facility] [address] [id number] [place] [address] Sep, [facility] [place] [facility] [address] [id number] [place] [address] Sep, [facility] [place] [facility] [address] [id number] [place] [address] Sep, [facility] [place] [facility] [address] [id number] [place] [address] Sep, [facility] [place] [facility] [address] [id number] [place] [address] Sep, [facility] [place] [facility] [address] [id number] [place] [address] Aug, [facility] [place] [facility] [address] [id number] [place] [address] Aug, [facility] [place] [facility] [address] [id number] [place] [address] Aug, [facility] [place] [facility] [address] [id number] [place] [address] Aug, [facility] [place] [facility] [address] [id number] [place] [address] Jul, [facility] [place] [facility] [address] [id number] [place] [address] Jul, [facility] [place] [facility] [address] [id number] [place] [address] Jul, [facility] [place] [facility] [address] [id number] [place] [address] Jul, [facility] [place] [facility] [address] [id number] [place] [address] Jun, [facility] [place] [facility] [address] [id number] [place] [address] Jun, [facility] [place] [facility] [address] [id number] [place] [address] 15 Jun, 2013 [facility] [address] [id number] [place] [address] 15 Jun, 2013 [facility] [place] [facility] [address] [id number] [place] [address] 10 Jun, 2013 [facility] [place] [facility] [address] [id number] [place] [address] Jun, [facility] [place] [facility] [address] [id number] [place] [address] Jun, [facility] [place] [facility] [address] [id number] [place] [address] Jun, [facility] [address] [id number] [place] [address] 20 May, 2013 [facility] [address] [id number] [place] [address] 20 May, 2013 [facility] [address] [id number] [place] [address] 18 May, 2013 [facility] [address] [id number] [place] [address] 18 May, 2013 [facility] [address] [id number] [place] [address] 17 May, 2013 [facility] [address] [id number] [place] [id number] 17 May, 2013 [facility] [place] [facility] [address] [id number] [place] [address] 17 May, 2013 [facility] [place] [facility] [address] [id number] [place] [address] 17 May, 2013 [facility] [place] [facility] [address] [id number] [place] [address] 16 May, 2013 [facility] [place] [facility] [address] [id number] [place] [address] 16 May, 2013 [facility] [address] [id number] [place] [address] 14 May, 2013 [facility] [place] [facility] [address] [id number] [place] [address] 14 May, 2013 [facility] [place] [facility] [address] [id number] [place] [address] 13 May, 2013 [facility] [place] [facility] [address] [id number] [place] [address] 13 May, 2013 [facility] [place] [facility] [address] [id number] [place] [address] 12 May, 2013 [facility] [place] [facility] [address] [id number] [place] [address] 12 May, 2013 [facility] [place] [facility] [address] [id number] [place] [address] 11 May, 2013 [facility] [place] [facility] [address] [id number] [place] [address] 11 May, 2013 [facility] [place] [facility] [address] [id number] [place] [address] Apr, [facility] [place] [facility] [address] [id number] [place] [address] Apr, [facility] [place] [facility] [address] [id number], [place] [address] Apr, [facility] [place] [facility] [address] [id number], [place] [address] Apr, [facility] [place] [facility] [address] [id number] [place] [address] 27 Aug, 2012 [facility] [place] [facility] [address] [id number] [place] [address] 18 Aug, 2012 [facility] [place] [facility] [address] [id number] [place] [address] 06 Aug, 2012 [facility] [place] [facility] [address] [id number] [place] [address] 05 Aug, 2012 [facility] [address] [id number] [place] [address] Jul, [facility] [place] [facility] [address] [id number] [place] [address] Jun, [facility] [address] [id number] [place] [address] Jun, [facility] [place] [facility] [address] [id number] [place] [address] Jun, [facility] [address] [id number] [place] [address] Jun, [facility] [place] [facility] [address] [id number] [place] [address] May, [facility] [address] [id number] [place] [address] May, [facility] [place] [facility] [address] [id number] [place] [address] May, [facility] [place] [facility] [address] [id number] [place] [address] May, [facility] [place] [facility] [address] [facility] [id number] [place] [address] May, [facility] [place] [facility] [address] [id number] [place] [address] May, [facility] [place] [facility] [address] [id number] [place] [address] May, [facility] [place] [facility] [address] [id number] [place] [address] Apr, [facility] [place] [facility] [address] [id number] [place] [address] Apr, [facility] [place] [facility] [address] [id number] [place] [address] Apr, [facility] [place] [facility] [address] [id number] [place] [address] Apr, [facility] [place] [facility] [address] [id number] [place] [address] Apr, [facility] [place] [facility] [address] [id number] [place] [address] Apr, [facility] [place] [facility] [address] [id number] [place] [address], [place] [address] Apr, [facility] [place] [facility] [address] [id number] [place] [address] Mar, [facility] [place] [facility] [address] [id number] [place] [address] Mar, [facility] [place] [facility] [address] [id number] [place] [address] Mar, [facility] [place] [facility] [address] [id number] [place] [address] Mar, [facility] [place] [facility] [address] [id number] [place] [address] Mar, [facility] [place] [facility] [address] [id number], [place] [address] Mar, [facility] [place] [facility] [address] [id number] [place] [address] Mar, [facility] [place] [facility] [address] [id number], [place] [address] Mar, [facility] [place] [facility] [address] [id number], [place] [address] Mar, [facility] [place] [facility] [address] [id number] [place] [address] Mar, [facility] [place] [facility] [address] [id number], [place] [address] Mar, [facility] [place] [facility] [address] [id number], [place] [address] Mar, [facility] [place] [facility] [address] [id number] [place] [address] Feb, [facility] [place] [facility] [address] [id number] [place] [address] Jan, [facility] [place] [facility] [address] [id number] [place] [address] Jan, [facility] [place] [facility] [address] [id number] [place] [address] Jan, [facility] [place] [facility] [address] [id number] [place] [address] Jan, [facility] [place] [facility] [address] [id number] [place] [address] Jan, [facility] [place] [facility] [address] [id number] [place] [address] Dec, [facility] [place] [facility] [address] [id number] [place] [address] Dec, [facility] [place] [facility] [address] [id number] [place] [address] Nov, [facility] [place] [facility] [address] [id number] [place] [address] Nov, [facility] [place] [facility] [address] [id number] [place] [address] Nov, [facility] [place] [facility] [address] [id number] [place] [address] October, [facility] [place] [facility] [address] [id number] [place] [address] October, [facility] [place] [facility] [address] [id number] [place] [address] October, [facility] [place] [facility] [address] [id number] [place] [address] October, [facility] [place] [facility] [address] [id number] [place] [address] 16 Oct, 2011 [facility] [address] [id number] [place] [address] October, [facility] [address] [id number] [place] [address] October, [facility] [address] [id number] [place] [address] Sep, [facility] [address] [id number] [place] [address] Sep, [facility] [address] [id number] [place] [address] Sep, [facility] [address] [id number] [place] [address] Sep, [facility] [address] [id number] [place] [address] 24 Sep, 2011 [facility] [address] [id number] [place] [address] 19 Sep, 2011 [facility] [address] [id number] [place] [address] 17 Sep, 2011 [facility] [address] [id number] [place] [address] 16 Sep, 2011 [facility] [address] [id number] [place] [address] 16 Sep, 2011 [facility] [address] [id number] [place] [address] 14 Sep, 2011 [facility] [address] [id number] [place] [address] 13 Sep, 2011 [facility] [address] [id number] [place] [address] 10 Sep, 2011 [facility] [address] [id number] [place] [address] Sep, [facility] [address] [id number] [place] [address] Aug, [facility] [place] [facility] [address] [id number] [place] [address] Aug, [facility] [place] [facility] [address] [id number] [place] [address] 08 Aug, 2011 [facility] [place] [facility] [address] [id number] [place] [address] 06 Aug, 2011 [facility] [place] [facility] [address] [id number] [place] [address] 28 Jul, 2011 [facility] [place] [facility] [address] [id number] [place] [address] 22 Jul, 2011 [facility] [place] [facility] [address] [id number] [place] [address] 16 Jul, 2011 [facility] [place] [facility] [address] [id number] [place] [address] 15 Jul, 2011 [facility] [place] [facility] [address] [id number] [place] [address] 14 Jul, 2011 [facility] [place] [facility] [address] [id number] [place] [address] 10 Jul, 2011 [facility] [place] [facility] [address] [id number] [place] [address] Jun, [facility] [place] [facility] [address] [id number] [place] [address] Jun, [facility] [place] [facility] [address] [id number] [place] [address] Jun, [facility] [place] [facility] [address] [id number] [place] [address] Jun, [facility] [place] [facility] [address] [id number] [place] [address] Jun, [facility] [place] [facility] [address] [id number] [place] [address] 27 May, 2011 [facility] [address] [id number] [place] [address] 21 May, 2011 [facility] [place] [facility] [address] [id number] [place] [address] 14 May, 2011 [facility] [facility] [address] [id number] [place] [address] 14 May, 2011 [facility] [place] [facility] [address] [id number] [place] [address] 12 May, 2011 [facility] [address] [id number] [place] [address] 07 May, 2011 [facility] [place] [facility] [address] [id number] [place] [address] 05 May, 2011 [facility] [place] [facility] [address] [id number] [place] [address] 15 Apr, 2011 [facility] [place] [facility] [address] [id number] [place] [address] 15 Apr, 2011 [facility] [place] [facility] [address] [id number] [place] [address] 07 Apr, 2011 [facility] [place] [facility] [address] [facility] [id number] [place] [address] 07 Apr, 2011 [facility] [place] [facility] [address] [id number] [place] [address] 04 Apr, 2011 [facility] [place] [facility] [address] [id number] [place] [address] Apr, [facility] [place] [facility] [address] [id number] [place] [address] 28 Mar, 2011 [facility] [place] [facility] [address] [id number] [place] [address] Mar, [facility] [place] [facility] [address] [id number] [place] [address] 12 Mar, 2011 [facility] [place] [facility] [address] [id number] [place] [address] Mar, [facility] [place] [facility] [address] [id number] [place] [address] Jan, [facility] [place] [facility] [address] [id number] [place] [address] Dec, [facility] [place] [facility] [address] [id number] [place] [address] Dec, [facility] [place] [facility] [address] [id number] [place] [address] October, [facility] [place] [facility] [address] [id number] [place] [address] 20 Sep, 2010 [facility] [place] [facility] [address] [id number] [place] [address] Sep, [facility] [place] [facility] [address] [id number] [place] [address] 17 Jul, 2010 [facility] [place] [facility] [address] [id number] [place] [address] Jul, [facility] [place] [facility] [address] [id number] [place] [address] May, [facility] [place] [facility] [address] [id number] [place] [address] May, [facility] [place] [facility] [address] [id number], [place] [address] May, [facility] [place] [facility] [address] [id number] [place] [address] May, [facility] [place] [facility] [address] [id number] [place] [address] Apr, [facility] [place] [facility] [address] [id number] [place] [address] Apr, [facility] [place] [facility] [address] [id number], [place] [address] Apr, [facility] [place] [facility] [address] [id number] [place] [address] 18 Apr, 2010 [facility] [place] [facility] [address] [facility] [id number], [place] [address] Apr, [facility] [place] [facility] [address] [facility] [id number] [place] [address] 21 Mar, 2010 [facility] [place] [facility] [address] [id number] [place] [address] 14 Mar, 2010 [facility] [place] [facility] [address] [facility] [id number] [place] [address], [place] [address] 13 Mar, 2010 [facility] [place] [facility] [address] [facility] [id number] [place] [address] 12 Mar, 2010 [facility] [address] [facility] [id number], [place] [address] Jan, [facility] [place] [facility] [address] [facility] [id number], [place] [address] 15 Dec, 2009 [facility] [place] [facility] [address] [facility] [id number], [place] [address] 10 Sep, 2009 [facility] [place] [facility] [address] [facility] [id number], [place] [address] 08 May, 2009 [facility] [place] [facility] [address] [facility] [id number], [place] [address] 06 May, 2009 [facility] [place] [facility] [address] [facility] [id number], [place] [address] 02 May, 2009 [facility] [place] [facility] [address] [facility] [id number], [place] [address] 17 Apr, 2009 [facility] [place] [facility] [address] [facility] [id number], [place] [address] 17 Apr, 2009 [facility] [place] [facility] [address] [facility] [id number], [place] [address] 10 Apr, 2009 [facility] [place] [facility] [address] [facility] [id number] [place] [address] Apr, [facility] [address] [facility] [id number], [place] [address] Apr, [facility] [address] [facility] [id number], [place] [address] Mar, [facility] [address] [facility] [id number], [place] [address] Mar, [facility] [address] [facility] [id number], [place] [address] Jul, IMMUNIZATIONS No Known Immunizations SOCIAL HISTORY Never Assessed REASON FOR VISIT PLAN OF CARE VITAL SIGNS Height 62 in 2014-08-17 Weight 243.6 lbs 2014-08-17 Temperature 98 degrees Fahrenheit 2014-08-17 Heart Rate 82 bpm 2014-08-17 Respiratory Rate 20 2014-08-17 Blood pressure systolic 142 mmHg 2014-08-17 Blood pressure diastolic 88 mmHg 2014-08-17 MEDICATIONS Unknown Medications RESULTS No Results PROCEDURES Procedure Date Ordered Result Body Site GLYCATED HEMOGLOBIN TEST August 17, 2014 ASSAY OF FERRITIN August 17, 2014 LIPID PANEL August 17, 2014 COMPREHEN METABOLIC PANEL August 17, 2014 VENIPUNCT, ROUTINE* August 17, 2014 INSTRUCTIONS MEDICATIONS ADMINISTERED No Known Medications MEDICAL [...] and replaced VC 10/2018 Hospitalization History Cellulitis-[facility]ia [facility] 12/20/15 Hospitalization History [facility]- Abd pain 03/07/2017 Hospitalization History [facility]- Abd pain 03/14/2017 Hospitalization History [facility]- No bowel movement, rash 04/13/2017 Hospitalization History [facility]- Abd pain r/t kidney surgery on 04/10/17 04/17/2017 Hospitalization History [facility] [place]- Abd pain r/t kidney surgery on 04/10/17 04/18/2017 Hospitalization History [facility] [place]- Lower abd pain 04/30/2017 Hospitalization History [facility]- Cannot urinate 05/30/2017 Hospitalization History [facility] [place]- Pancreatitis Sx 06/29/2017 Hospitalization History [facility] [place]- Stomach pain 07/22/2017 Hospitalization History [facility] [place]- Left side pain 08/12/2017 Hospitalization History [facility] [place]- Incision site infection 08/30/2017 Hospitalization History [facility]- Post Op Seroma/Hematoma Left Abdomen. Discharged 09/04/17- Dr Daniel 09/02/2017 Hospitalization History [facility]- Right shoulder and back pain 10/22/2017 Hospitalization History [facility]- Shoulder/Back pain 11/11/2017 Hospitalization History [facility]- Right shoulder blade pain 12/04/2017 Hospitalization History [facility]- C-Diff 12/13/2017 Hospitalization History C diff et MRSA 12/27/2017 Hospitalization History Bowel abduction [facility] 10/2018
--- OUTSIDE RECORDS SUMMARY | 2019-01-07 11:18 | XMS REPORT ---
Author Author REBECCA FRYE [facility] Address [address] [place] [address] Care Team Providers Care Customs Compliance Analyst Name Role Phone REBECCA FRYE Unavailable PROBLEMS Type Condition ICD9-CM Code PFB48-OZ Code Onset Dates Condition Status SNOMED Code Problem History of renal cell carcinoma Z85.528 Active 750857358 Problem Right carpal tunnel syndrome G56.01 Active 428119420978592 Problem Nodule of left lung R91.1 Active 921493939 Problem Moderate episode of recurrent major depressive disorder F33.1 Active 892432797 Problem Restless leg syndrome G25.81 Active 69771676 Problem Morbid (severe) obesity due to excess calories E66.01 Active 329179598 Problem Chronic tension-type headache, intractable G44.221 Active 527349793 Problem Asthma J45.909 Active 928494960 Problem Chronic pancreatitis K86.1 Active 952913558 Problem Atelectasis J98.11 Active 89433676 Problem Polydipsia R63.1 Active 06907699 Problem Chronic post-traumatic stress disorder (PTSD) F43.12 Active 628540136 Problem Trichotillomania F63.3 Active 80876460 Problem Chronic fatigue R53.82 Active 87511887 Problem Intestinal malabsorption, unspecified K90.9 Active 52932434 Problem Primary osteoarthritis of right knee M17.11 Active 379054856366985 Problem Social phobia, generalized F40.11 Active 76813016 Problem Hirsuties L68.0 Active 584733977 Problem Social phobia, unspecified F40.10 Active 51000303 Problem Hyperlipidemia, mixed E78.2 Active 563415448 Problem FH: polycystic ovary Z84.2 Active 372316972 Problem Obesities, morbid E66.01 Active 815228743 Problem Menopausal symptoms N95.1 Active 37326908 Problem Conflict between patient and family Z63.9 Active 82134092 Problem Morbid obesity E66.01 Active 484365677 ALLERGIES No Information ENCOUNTERS Encounter Location Date Diagnosis [facility], [place] [address], [place] [address] Jan, [facility], [place] [address], [place] [address] Dec, [facility], [place] [address], [place] [address] Dec, [facility], [place] [id number], [place] [address] Nov, [facility], [place] [address], [place] [address] Nov, [facility], [place] [id number] [place] [address] Nov, [facility] [address], [place] [address] Nov, Other acute postprocedural pain G89.18 and Unspecified abdominal pain R10.9 [facility], [place] [address], [place] [address] October, [facility], [place] [id number] [address] October, Social phobia, generalized F40.11 ; Conflict between patient and family Z63.9 and Morbid obesity E66.01 [facility], [place] [address], [place] [address] October, [facility], [place] [id number], [place] [address] October, [facility], [place] [address], [place] [address] October, [facility], [place] [id number], [place] [address] October, [address] [address] October, [facility], [place] [address] [facility] [id number], [place] [address] October, [facility] [address] [place] [address] October, [facility], [place] [address], [place] [address] October, Morbid obesity E66.01 ; Routine gynecological examination Z01.419 and Menopausal symptoms N95.1 [facility], [place] [address] [facility] [id number], [place] [address] October, [facility] [address] [place] [address] Sep, [facility], [place] [address] [facility] [id number], [place] [address] Sep, [facility], [place] [address], [place] [address] Sep, [facility], [place] [address], [place] [address] Sep, [facility], [place] [address], [place] [address] Sep, Lower extremity edema R60.0 [facility], [place] [address], [place] [address] Sep, [facility] [address], [place] [address] Sep, Lower extremity edema R60.0 and Morbid obesity E66.01 [facility], [place] [address], [place] [address] Sep, [facility], [place] [address], [place] [address] Sep, [facility], [place] [address] [facility] [id number], [place] [address] Aug, [facility], [place] [id number] [place] [address] Aug, Obesities, morbid E66.01 and Morbid obesity E66.01 [facility], [place] [address], [place] [address] Aug, [facility] [address] [address] Jul, [facility], [place] [address], [place] [address] Jul, [facility], [place] [id number] [place] [address] Jul, [facility], [place] [id number] [place] [address] Jul, Numbness of right hand R20.0 [facility], [place] [id number] [place] [address] Jul, [facility], [place] [id number] [place] [address] Jul, Numbness of right hand R20.0 [facility], [place] [address] [place] [address] Jul, [facility], [place] [id number], [place] [address] Jul, [facility], [place] [address], [place] [address] Jul, Right-sided thoracic back pain M54.6 [facility], [place] [address], [place] [address] Jul, [facility], [place] [id number] [place] [address] Jul, [facility], [place] [id number], [place] [address] Jul, [facility], [place] [address] [place] [address] Jul, [facility], [place] [id number] [place] [address] Jun, [facility], [place] [address] [address] Jun, Acute pain of right shoulder M25.511 ; Numbness of right hand R20.0 and Trapezius muscle spasm M62.838 [place] [address] [address] Jun, [place] [address] [address] Jun, [place] [address] [address] Jun, Cough R05 ; BMI 50.0-59.9, adult Z68.43 and Morbid obesity E66.01 [place] [address] [address] Jun, [place] [id number] [place] [address] Jun, [facility] [place] [facility] [id number] [place] [address] Jun, BMI 45.0-49.9, adult Z68.42 and Acute non-recurrent maxillary sinusitis J01.00 [facility] [id number] [place] [address] Jun, Acute sinusitis J01.90 ; Dysuria R30.0 and BMI 45.0-49.9, adult Z68.42 [place] [address] [address] Jun, [place] [id number] [place] [address] Jun, [place] [id number] [place] [address] May, [facility], [place] [id number] [place] [address] May, [facility], [place] [address] [address] May, [facility], [place] [id number] [place] [address] May, [facility], [place] [address] [address] May, [facility], [place] [id number] [place] [address] Apr, Generalized social phobia F40.11 ; Trichotillomania F63.3 ; Chronic post-traumatic stress disorder (PTSD) F43.12 and BMI 45.0-49.9, adult Z68.42 [place] [id number] [place] [address] Apr, [facility], [place] [id number] [place] [address] Apr, Chronic tension-type headache, intractable G44.221 [place] [id number] [place] [address] Apr, [facility] [id number] [place] [address] Mar, [facility] [id number] [place] [address] Mar, BMI 45.0-49.9, adult Z68.42 and Pimples R23.8 [facility], [place] [id number] [place] [address] Mar, [facility], [place] [id number] [place] [address] Mar, [facility], [place] [id number] [place] [address] Mar, Decreased urination R34 ; Chronic fatigue R53.82 ; Peripheral edema R60.9 ; Diarrhea, unspecified type R19.7 ; Non-intractable vomiting with nausea, unspecified vomiting type R11.2 ; BMI 45.0-49.9, adult Z68.42 and Chronic post-traumatic stress disorder (PTSD) F43.12 [facility], [place] [id number] [place] [address] Mar, Intestinal malabsorption, unspecified K90.9 ; Diarrhea, unspecified R19.7 ; Urinary urgency R39.15 ; Rectal bleeding K62.5 and Decreased urine output R34 [place] [address] [address] Mar, Decreased urine output R34 [facility], [place] [address] [address] Mar, Rectal bleeding K62.5 [facility], [place] [address] [address] Mar, Rectal bleeding K62.5 [facility], [place] [id number] [place] [address] Mar, Urinary urgency R39.15 [facility], [place] [id number] [place] [address] Mar, Urinary urgency R39.15 [facility], [place] [id number] [place] [address] Mar, Primary osteoarthritis of right knee M17.11 and BMI 45.0-49.9, adult Z68.42 [facility], [place] [id number] [place] [address] Mar, [facility], [place] [address] [address] Feb, Left upper arm pain M79.622 [facility], [place] [id number] [place] [address] Feb, [facility], [place] [address], [place] [address] Jan, Acute pain of right knee M25.561 ; Right upper quadrant abdominal pain R10.11 and BMI 45.0-49.9, adult Z68.42 [place] [id number] [place] [address] Jan, [place] [id number] [place] [address] Jan, [place] [id number] [place] [address] Dec, [place] [id number] [place] [address] Dec, Intestinal malabsorption, unspecified K90.9 and Diarrhea, unspecified R19.7 [place] [id number] [place] [address] Dec, [place] [id number] [place] [address] Dec, Strep throat J02.0 ; Intestinal malabsorption, unspecified K90.9 ; Diarrhea, unspecified R19.7 ; Postoperative seroma involving digestive system after non-digestive system procedure K91.873 ; Hyperlipidemia, mixed E78.2 and BMI 45.0-49.9, adult Z68.42 [place] [id number] [place] [address] Dec, [place] [id number] [place] [address] Dec, Nausea R11.0 [place] [id number] [place] [address] Dec, [facility] [id number] [place] [address] Dec, Sore throat J02.9 ; Strep throat J02.0 and BMI 45.0-49.9, adult Z68.42 [facility], [place] [address] [facility] [id number] [place] [address] Dec, [facility], [place] [address] [facility] [id number] [place] [address] Dec, [facility], [place] [address] [facility] [id number] [place] [address] Dec, [facility], [place] [id number] [place] [address] Dec, [facility], [place] [address] [facility] [id number] [place] [address] Dec, [facility], [place] [id number] [place] [address] Dec, [facility], [place] [id number] [place] [address] Dec, [facility], [place] [id number] [place] [address] Dec, [facility], [place] [address], [place] [address] Dec, Clostridium difficile colitis A04.72 ; Intractable vomiting with nausea, unspecified vomiting type R11.2 and BMI 45.0-49.9, adult Z68.42 [facility], [place] [address], [place] [address] Dec, [facility], [place] [id number], [place] [address] Nov, [facility], [place] [id number] [place] [address] Nov, [facility], [place] [address], [place] [address] Nov, [facility], [place] [id number] [place] [address] Nov, [facility] [id number] [place] [address] Nov, [facility], [place] [id number] [place] [address] Nov, Hyperlipidemia, mixed E78.2 [facility] [id number] [place] [address] Nov, Acute suppurative otitis media of right ear without spontaneous rupture of tympanic membrane, recurrence not specified H66.001 and BMI 45.0-49.9, adult Z68.42 [place] [address] [address] Nov, Hyperlipidemia, mixed E78.2 [place] [address] [address] Nov, [place] [address] [address] Nov, [place] [id number] [place] [address] Nov, Nodule of left lung R91.1 [place] [address] [address] 04 Nov, 2017 Medicare annual wellness visit, [...] adult Z68.42 and Encounter for immunization Z23 [place] [id number] [place] [address] October, [place] [id number] [place] [address] October, Nodule of left lung R91.1 [place] [id number] [place] [address] October, Nodule of left lung R91.1 [place] [address] [address] October, Recurrent major depressive disorder, in partial remission F33.41 ; Restless leg syndrome G25.81 ; Generalized social phobia F40.11 ; Chronic post-traumatic stress disorder (PTSD) F43.12 ; BMI 45.0-49.9, adult Z68.42 and Trichotillomania F63.3 [place] [address] [address] October, [place] [address] [address] Sep, Chronic fatigue R53.82 and BMI 45.0-49.9, adult Z68.42 [place] [address] [address] Aug, [place] [address] [address] Jul, Restless leg syndrome G25.81 and B12 deficiency E53.8 [place] [id number] [place] [address] Jul, [place] [id number] [place] [address] Jul, [place] [id number] [place] [address] Jun, [place] [address] [address] Jun, Fatigue, unspecified type R53.83 ; History of renal cell carcinoma Z85.528 ; Chronic pancreatitis K86.1 ; Restless leg syndrome G25.81 ; Dark urine R82.99 and BMI 45.0-49.9, adult Z68.42 [place] [address], [place] [address] Jun, [facility], [place] [address], [place] [address] Jun, [facility], [place] [address], [place] [address] Jun, [facility] [place] [address], [place] [address] Jun, [facility], [place] [address], [place] [address] May, Chronic post-traumatic stress disorder (PTSD) F43.12 ; Moderate episode of recurrent major depressive disorder F33.1 ; Trichotillomania F63.3 and Generalized social phobia F40.11 [place] [address], [place] [address] May, [facility], [place] [address], [place] [address] May, Chronic post-traumatic stress disorder (PTSD) F43.12 ; Moderate episode of recurrent major depressive disorder F33.1 ; Trichotillomania F63.3 and Generalized social phobia F40.11 [facility] [place] [id number], [place] [address] May, Hyperlipidemia, mixed E78.2 ; Morbid (severe) obesity due to excess calories E66.01 ; Chronic post-traumatic stress disorder (PTSD) F43.12 ; Moderate episode of recurrent major depressive disorder F33.1 ; Trichotillomania F63.3 and Generalized social phobia F40.11 [facility] [place] [address], [place] [address] Apr, [facility], [place] [id number], [place] [address] Apr, Hyperlipidemia, mixed E78.2 ; Morbid (severe) obesity due to excess calories E66.01 ; Chronic post-traumatic stress disorder (PTSD) F43.12 ; Moderate episode of recurrent major depressive disorder F33.1 ; Trichotillomania F63.3 and Generalized social phobia F40.11 [facility] [place] [id number] [place] [address] Apr, Trichotillomania F63.3 ; Generalized social phobia F40.11 ; Chronic post-traumatic stress disorder (PTSD) F43.12 and Moderate episode of recurrent major depressive disorder F33.1 [place] [address] [address] Apr, [place] [id number] [place] [address] Apr, [place] [id number] [place] [address] Mar, Moderate episode of recurrent major depressive disorder F33.1 ; Trichotillomania F63.3 ; Chronic post-traumatic stress disorder (PTSD) F43.12 ; Generalized social phobia F40.11 and Restless leg syndrome G25.81 [place] [id number] [place] [address] Mar, [place] [id number] [place] [address] Mar, [place] [id number] [place] [address] Feb, Left kidney mass N28.89 [facility] [place] [address] [address] Jan, [facility], [place] [id number] [place] [address] Dec, Polydipsia R63.1 ; Chronic pancreatitis K86.1 and Fatigue, unspecified type R53.83 [facility] [place] [id number] [place] [address] Nov, [place] [address] [address] Nov, [facility] [place] [id number] [place] [address] Nov, Headache around the eyes R51 [facility], [place] [id number] [place] [id number] Nov, [facility], [place] [id number] [place] [address] October, STD exposure Z20.2 [facility], [place] [id number] [place] [address] October, STD exposure Z20.2 [place] [id number] [place] [address] October, Chronic post-traumatic stress disorder (PTSD) F43.12 ; Generalized social phobia F40.11 ; Trichotillomania F63.3 and Restless leg syndrome G25.81 [facility], [place] [id number] [place] [address] October, [facility], [place] [id number] [place] [address] Sep, [facility], [place] [id number] [place] [address] Aug, [place] [id number] [place] [address] Aug, [facility], [place] [id number] [place] [address] Aug, Neck mass R22.1 [facility], [place] [id number] [place] [address] Aug, Atelectasis J98.11 [facility], [place] [id number] [place] [address] 28 Jul, 2016 Hyperlipidemia, mixed E78.2 ; Atypical pneumonia J18.9 and Neck mass R22.1 [place] [id number] [place] [address] 15 Jul, 2016 Hemoptysis R04.2 [place] [id number] [place] [address] 08 Jul, 2016 Acute non-recurrent pansinusitis J01.40 ; Hemoptysis R04.2 ; Polydipsia R63.1 and Malaise R53.81 [facility] [place] [id number] [place] [address] May, Other viral agents as the cause of diseases classified elsewhere B97.89 and Acute upper respiratory infection, unspecified J06.9 [facility] [place] [id number] [place] [address] Mar, Nausea R11.0 [facility] [place] [id number] [place] [address] Dec, Hives L50.9 [place] [id number] [place] [address] 14 Dec, 2015 [facility] [place] [id number] [place] [address] Dec, Cutaneous abscess of limb, unspecified L02.419 ; Cellulitis of unspecified part of limb L03.119 ; Encounter for incision and drainage procedure Z01.89 and Encounter for recheck of abscess following incision and drainage Z09 [facility] [place] [id number] [place] [address] 09 Dec, 2015 Abscess of leg, right L02.415 [place] [id number] [place] [address] 08 Dec, 2015 Cellulitis of unspecified part of limb L03.119 and Cutaneous abscess of limb, unspecified L02.419 [place] [id number] [place] [address] Dec, [place] [id number] [place] [address] Dec, [facility] [id number] [place] [address] Aug, [place] [id number] [place] [address] Aug, [facility] [id number] [place] [address] Jul, Pain in unspecified wrist M25.539 and Back pain, thoracic M54.6 [facility] [id number] [place] [address] Jun, Strain of right wrist, initial encounter S66.911A [place] [id number] [place] [address] 11 Jun, 2015 Chronic pancreatitis, unspecified pancreatitis type K86.1 ; Hirsuties L68.0 ; Morbid (severe) obesity due to excess calories E66.01 ; Chronic pancreatitis K86.1 and Asthma J45.909 [place] [id number] [place] [address] May, [place] [id number] [place] [address] 09 May, 2015 Hyperlipidemia, mixed E78.2 and Muscle spasm of back M62.830 [place] [id number] [place] [address] 30 Apr, 2015 [place] [id number] [place] [address] 16 Apr, 2015 Torticollis M43.6 [place] [id number] [place] [address] 09 Apr, 2015 Right-sided thoracic back pain M54.6 [place] [id number] [place] [address] 15 Mar, 2015 Rash R21 [place] [address] [place] [address] Mar, [facility], [place] [id number] [place] [address] Jan, [facility], [place] [id number] [place] [address] Dec, [facility], [place] [id number] [place] [address] Dec, Urinary frequency 788.41 and Nocturia more than twice per night 788.43 [facility], [place] [id number] [place] [address] Nov, [facility], [place] [id number] [place] [address] Nov, [facility], [place] [id number] [place] [address] Nov, Abdominal pain 789.00 [facility], [place] [id number] [place] [address] October, TDAP DX V06.1 [facility], [place] [id number] [place] [address] October, [facility], [place] [id number] [place] [address] October, Disturbance of skin sensation 782.0 ; Wrist pain, right 719.43 ; Hyperlipidemia 272.4 and Skin lesion of face 709.9 [facility], [place] [address] [address] Sep, [facility], [place] [id number] [place] [address] Sep, [facility], [place] [id number] [place] [address] Aug, [facility], [place] [id number] [place] [address] Aug, [facility] [place] [facility] [address] [id number] [place] [address] 23 Aug, 2014 [facility] [place] [facility] [address] [id number] [place] [address] 23 Aug, 2014 [facility] [place] [facility] [address] [id number] [place] [address] 16 Aug, 2014 [facility] [place] [facility] [address] [id number] [place] [address] 16 Aug, 2014 [facility] [place] [facility] [address] [id number] [place] [address] 14 Aug, 2014 [facility] [place] [facility] [address] [id number] [place] [address] 14 Aug, 2014 [facility] [place] [facility] [address] [id number] [place] [address] Aug, [facility] [place] [facility] [address] [id number] [place] [address] 11 Aug, 2014 [facility] [place] [facility] [address] [id number] [place] [address] 04 Aug, 2014 [facility] [place] [facility] [address] [id number] [place] [address] 04 Aug, 2014 [facility] [place] [facility] [address] [id number] [place] [address] Aug, [facility] [place] [facility] [address] [id number] [place] [address] Aug, [facility] [place] [facility] [address] [id number] [place] [address] Jul, [facility] [place] [facility] [address] [id number] [place] [address] Jul, [facility] [place] [facility] [address] [id number] [place] [address] 13 Jul, 2014 [facility] [place] [facility] [address] [id number], [place] [address] Jul, [facility] [address] [id number] [place] [address] Jul, [facility] [place] [facility] [address] [id number] [place] [address] Jul, [facility] [place] [facility] [address] [id number] [place] [address] Jun, [facility] [place] [facility] [address] [id number] [place] [address] Jun, [facility] [address] [id number] [place] [address] Jun, [facility] [place] [facility] [address] [id number] [place] [address] Jun, [facility] [address] [id number] [place] [address] Jun, [facility] [place] [facility] [address] [id number] [place] [address] Jun, [facility] [address] [id number], [place] [address] Jun, [facility] [place] [facility] [address] [id number] [place] [address] Jun, [facility] [address] [id number], [place] [address] May, [facility] [place] [facility] [address] [id number], [place] [address] 19 May, 2014 [facility] [place] [facility] [address] [id number] [place] [address] 18 May, 2014 [facility] [place] [facility] [address] [id number] [place] [address] 18 May, 2014 [facility] [place] [facility] [address] [id number] [place] [address] 15 May, 2014 [facility] [place] [facility] [address] [id number] [place] [address] 15 May, 2014 [facility] [place] [facility] [address] [id number] [place] [address] May, [facility] [place] [facility] [address] [id number] [place] [address] May, [facility] [place] [facility] [address] [id number] [place] [address] May, [facility] [place] [facility] [address] [id number] [place] [address] May, [facility] [place] [facility] [address] [id number] [place] [address] May, [facility] [place] [facility] [address] [id number] [place] [address] May, [facility] [place] [facility] [address] [id number] [place] [address] Apr, [facility] [place] [facility] [address] [id number] [place] [address] Apr, [facility] [place] [facility] [address] [id number] [place] [address] Apr, [facility] [place] [facility] [address] [id number] [place] [address] Apr, [facility] [place] [facility] [address] [id number] [place] [address] Apr, [facility] [place] [facility] [address] [id number] [place] [address] Apr, [facility] [place] [facility] [address] [id number] [place] [address] Apr, [facility] [place] [facility] [address] [id number] [place] [address] Apr, [facility] [place] [facility] [address] [id number] [place] [address] Apr, [facility] [place] [facility] [address] [id number] [place] [address] Apr, [facility] [place] [facility] [address] [id number] [place] [address] Apr, [facility] [place] [facility] [address] [id number] [place] [address] Apr, [facility] [place] [facility] [address] [id number] [place] [address] Mar, [facility] [place] [facility] [address] [id number] [place] [address] Mar, [facility] [place] [facility] [address] [id number] [place] [address] Mar, [facility] [place] [facility] [address] [id number] [place] [address] Mar, [facility] [place] [facility] [address] [id number] [place] [address] Feb, [facility] [place] [facility] [address] [id number] [place] [address] Feb, [facility] [place] [facility] [address] [id number] [place] [address] 05 Feb, 2014 [facility] [place] [facility] [address] [id number] [place] [address] Feb, [facility] [place] [facility] [address] [id number], [place] [address] 05 Feb, 2014 [facility] [place] [facility] [address] [id number] [place] [address] Feb, [facility] [place] [facility] [address] [id number] [place] [address] Jan, [facility] [place] [facility] [address] [id number] [place] [address] Jan, [facility] [place] [facility] [address] [id number] [place] [address] Jan, [facility] [place] [facility] [address] [id number] [place] [address] Jan, [facility] [place] [facility] [address] [id number] [place] [address] Jan, [facility] [place] [facility] [address] [id number] [place] [address] Jan, [facility] [place] [facility] [address] [id number] [place] [address] Jan, [facility] [place] [facility] [address] [id number] [place] [address] Jan, [facility] [place] [facility] [address] [id number] [place] [address] Jan, [facility] [place] [facility] [address] [id number] [place] [address] Jan, [facility] [place] [facility] [address] [id number] [place] [address] Jan, [facility] [place] [facility] [address] [id number] [place] [address] Jan, [facility] [place] [facility] [address] [id number] [place] [address] Jan, [facility] [place] [facility] [address] [id number] [place] [address] Jan, [facility] [place] [facility] [address] [id number] [place] [address] Dec, [facility] [place] [facility] [address] [id number] [place] [address] Dec, [facility] [place] [facility] [address] [id number] [place] [address] Dec, [facility] [place] [facility] [address] [id number] [place] [address] Dec, [facility] [place] [facility] [address] [id number] [place] [address] Nov, [facility] [place] [facility] [address] [id number] [place] [address] Nov, [facility] [place] [facility] [address] [id number] [place] [address] Nov, [facility] [place] [facility] [address] [id number] [place] [address] Nov, [facility] [place] [facility] [address] [id number] [place] [address] Nov, [facility] [place] [facility] [address] [id number] [place] [address] October, [facility] [place] [facility] [address] [id number] [place] [address] October, [facility] [place] [facility] [address] [id number] [place] [address] October, [facility] [place] [facility] [address] [id number] [place] [address] October, [facility] [place] [facility] [address] [id number] [place] [address] October, [facility] [place] [facility] [address] [id number] [place] [address] October, [facility] [place] [facility] [address] [id number] [place] [address] October, [facility] [place] [facility] [address] [id number] [place] [address] October, [facility] [place] [facility] [address] [id number] [place] [address] October, [facility] [place] [facility] [address] [id number] [place] [address] October, [facility] [place] [facility] [address] [id number] [place] [address] October, [facility] [place] [facility] [address] [id number] [place] [address] October, [facility] [place] [facility] [address] [id number] [place] [address] October, [facility] [place] [facility] [address] [id number] [place] [address] October, [facility] [place] [facility] [address] [id number] [place] [address] Sep, [facility] [place] [facility] [address] [id number] [place] [address] Sep, [facility] [place] [facility] [address] [id number] [place] [address] Sep, [facility] [place] [facility] [address] [id number] [place] [address] Sep, [facility] [place] [facility] [address] [id number] [place] [address] Sep, [facility] [place] [facility] [address] [id number] [place] [address] Sep, [facility] [place] [facility] [address] [id number] [place] [address] Sep, [facility] [place] [facility] [address] [id number] [place] [address] Sep, [facility] [place] [facility] [address] [id number] [place] [address] Sep, [facility] [place] [facility] [address] [id number] [place] [address] Sep, [facility] [place] [facility] [address] [id number] [place] [address] Sep, [facility] [place] [facility] [address] [id number] [place] [address] Sep, [facility] [place] [facility] [address] [id number] [place] [address] Sep, [facility] [address] [id number] [place] [address] Sep, [facility] [place] [facility] [address] [id number] [place] [address] Sep, [facility] [place] [facility] [address] [id number] [place] [address] Aug, [facility] [place] [facility] [address] [id number] [place] [address] Aug, [facility] [place] [facility] [address] [id number] [place] [address] Aug, [facility] [place] [facility] [address] [id number] [place] [address] Aug, [facility] [place] [facility] [address] [id number] [place] [address] Jul, [facility] [place] [facility] [address] [id number] [place] [address] Jul, [facility] [place] [facility] [address] [id number] [place] [address] Jul, [facility] [place] [facility] [address] [id number] [place] [address] Jul, [facility] [place] [facility] [address] [id number] [place] [address] Jun, [facility] [place] [facility] [address] [id number] [place] [address] Jun, [facility] [place] [facility] [address] [id number] [place] [address] Jun, [facility] [place] [facility] [address] [id number] [place] [address] Jun, [facility] [place] [facility] [address] [id number] [place] [address] Jun, [facility] [place] [facility] [address] [id number] [place] [address] 10 Jun, 2013 [facility] [place] [facility] [address] [id number] [place] [address] 08 Jun, 2013 [facility] [place] [facility] [address] [id number] [place] [address] 08 Jun, 2013 [facility] [place] [facility] [address] [id number] [place] [address] 20 May, 2013 [facility] [place] [facility] [address] [id number] [place] [address] 20 May, 2013 [facility] [place] [facility] [address] [id number] [place] [address] 18 May, 2013 [facility] [place] [facility] [address] [id number] [place] [address] 18 May, 2013 [facility] [place] [facility] [address] [id number] [place] [address] 17 May, 2013 [facility] [place] [facility] [address] [id number] [place] [address] 17 May, 2013 [facility] [place] [facility] [address] [id number] [place] [address] 17 May, 2013 [facility] [place] [facility] [address] [id number] [place] [address] 17 May, 2013 [facility] [place] [facility] [address] [id number], [place] [address] 16 May, 2013 [facility] [place] [facility] [address] [id number] [place] [address] 16 May, 2013 [facility] [place] [facility] [address] [id number] [place] [address] 14 May, 2013 [facility] [place] [facility] [address] [id number] [place] [address] 14 May, 2013 [facility] [place] [facility] [address] [id number], [place] [address] May, [facility] [address] [id number] [place] [address] May, [facility] [address] [id number] [place] [address] May, [facility] [address] [facility] [id number] [place] [address] May, [facility] [address] [id number] [place] [address] May, [facility] [address] [facility] [id number] [place] [address] May, [facility] [address] [facility] [id number] [place] [address] Apr, [facility] [id number] [address] Apr, [facility] [address] [facility] [id number] [place] [address] Apr, [facility] [address] [id number] [place] [address] Apr, [facility] [address] [id number] [place] [address] Aug, [facility] [address] [id number], [place] [address] Aug, [facility] [place] [facility] [address] [facility] [id number], [place] [address] Aug, [facility] [address] [id number], [place] [address] 05 Aug, 2012 [facility] [place] [facility] [address] [facility] [id number], [place] [address] 04 Jul, 2012 [facility] [address] [facility] [id number], [place] [address] Jun, [facility] [address] [id number] [place] [address] Jun, [facility] [place] [facility] [address] [id number] [place] [address] Jun, [facility] [place] [facility] [address] [id number] [place] [address] Jun, [facility] [place] [facility] [address] [id number] [place] [address] May, [facility] [place] [facility] [address] [id number] [place] [address] May, [facility] [place] [facility] [address] [id number] [place] [address] May, [facility] [place] [facility] [address] [id number] [place] [address] May, [facility] [place] [facility] [address] [id number] [place] [address] May, [facility] [place] [facility] [address] [id number] [place] [address] May, [facility] [place] [facility] [address] [id number] [place] [address] May, [facility] [place] [facility] [address] [id number] [place] [address] Apr, [facility] [place] [facility] [address] [id number] [place] [address] Apr, [facility] [place] [facility] [address] [id number] [place] [address] Apr, [facility] [place] [facility] [address] [id number] [place] [address] Apr, [facility] [place] [facility] [address] [id number] [place] [address] Apr, [facility] [place] [facility] [address] [id number] [place] [address] Apr, [facility] [place] [facility] [address] [id number] [place] [address] Apr, [facility] [place] [facility] [address] [id number] [place] [address] Mar, [facility] [place] [facility] [address] [id number] [place] [address] Mar, [facility] [place] [facility] [address] [id number], [place] [address] Mar, [facility] [place] [facility] [address] [id number] [place] [address] Mar, [facility] [place] [facility] [address] [id number], [place] [address] Mar, [facility] [place] [facility] [address] [id number] [place] [address] Mar, [facility] [place] [facility] [address] [id number], [place] [address] Mar, [facility] [place] [facility] [address] [id number], [place] [address] Mar, [facility] [place] [facility] [address] [id number], [place] [address] Mar, [facility] [place] [facility] [address] [id number], [place] [address] Mar, [facility] [place] [facility] [address] [id number], [place] [address] Mar, [facility] [place] [facility] [address] [id number], [place] [address] Mar, [facility] [place] [facility] [address] [facility] [id number], [place] [address] Feb, [facility] [place] [facility] [address] [id number], [place] [address] Jan, [facility] [place] [facility] [address] [id number] [place] [address] Jan, [facility] [place] [facility] [address] [id number] [place] [address] Jan, [facility] [place] [facility] [address] [id number] [place] [address] Jan, [facility] [place] [facility] [address] [id number] [place] [address] Jan, [facility] [place] [facility] [address] [id number] [place] [address] Dec, [facility] [place] [facility] [address] [id number] [place] [address] Dec, [facility] [place] [facility] [address] [id number] [place] [address] Nov, [facility] [place] [facility] [address] [id number] [place] [address] Nov, [facility] [place] [facility] [address] [id number] [place] [address] Nov, [facility] [place] [facility] [address] [id number] [place] [address] October, [facility] [address] [id number] [place] [address] October, [facility] [place] [facility] [address] [id number] [place] [address] October, [facility] [place] [facility] [address] [id number] [place] [address] October, [facility] [place] [facility] [address] [id number] [place] [address] October, [facility] [place] [facility] [address] [id number] [place] [address] October, [facility] [place] [facility] [address] [id number] [place] [address] October, [facility] [place] [facility] [address] [id number] [place] [address] Sep, [facility] [address] [id number] [place] [address] Sep, [facility] [address] [id number] [place] [address] Sep, [facility] [address] [id number] [place] [address] Sep, [facility] [address] [id number] [place] [address] 24 Sep, 2011 [facility] [address] [id number] [place] [address] Sep, [facility] [address] [id number] [place] [address] 17 Sep, 2011 [facility] [address] [id number] [place] [address] 16 Sep, 2011 [facility] [address] [id number] [place] [address] 16 Sep, 2011 [facility] [address] [id number] [place] [address] 14 Sep, 2011 [facility] [address] [id number] [place] [address] 13 Sep, 2011 [facility] [address] [id number] [place] [address] 10 Sep, 2011 [facility] [place] [facility] [address] [id number] [place] [address] 09 Sep, 2011 [facility] [place] [facility] [address] [id number] [place] [address] 27 Aug, 2011 [facility] [place] [facility] [address] [id number] [place] [address] 12 Aug, 2011 [facility] [place] [facility] [address] [id number] [place] [address] 08 Aug, 2011 [facility] [address] [id number] [place] [address] Aug, [facility] [place] [facility] [address] [id number] [place] [address] 28 Jul, 2011 [facility] [place] [facility] [address] [id number] [place] [address] 22 Jul, 2011 [facility] [place] [facility] [address] [id number] [place] [address] 16 Jul, 2011 [facility] [place] [facility] [address] [id number] [place] [address] 15 Jul, 2011 [facility] [place] [facility] [address] [id number] [place] [address] 14 Jul, 2011 [facility] [address] [id number] [place] [address] 10 Jul, 2011 [facility] [place] [facility] [address] [id number] [place] [address] 30 Jun, 2011 [facility] [place] [facility] [address] [id number] [place] [address] Jun, [facility] [address] [id number] [place] [address] Jun, [facility] [address] [id number] [place] [address] Jun, [facility] [place] [facility] [address] [id number] [place] [address] Jun, [facility] [place] [facility] [address] [id number] [place] [address] May, [facility] [place] [facility] [address] [id number] [place] [address] May, [facility] [place] [facility] [address] [id number] [place] [address] May, [facility] [place] [facility] [address] [id number] [place] [address] 14 May, 2011 [facility] [place] [facility] [address] [id number] [place] [address] May, [facility] [place] [facility] [address] [id number] [place] [address] May, [facility] [place] [facility] [address] [id number] [place] [address] 05 May, 2011 [facility] [place] [facility] [address] [id number] [place] [address] Apr, [facility] [place] [facility] [address] [id number] [place] [address] Apr, [facility] [place] [facility] [address] [id number] [place] [address] Apr, [facility] [place] [facility] [address] [id number] [place] [address] Apr, [facility] [place] [facility] [address] [id number] [place] [address] Apr, [facility] [place] [facility] [address] [id number] [place] [address] Apr, [facility] [place] [facility] [address] [id number] [place] [address] Mar, [facility] [place] [facility] [address] [id number] [place] [address] Mar, [facility] [place] [facility] [address] [id number] [place] [address] Mar, [facility] [place] [facility] [address] [id number] [place] [address] Mar, [facility] [place] [facility] [address] [id number] [place] [address] Jan, [facility] [place] [facility] [address] [id number] [place] [address] 19 Dec, 2010 [facility] [address] [id number] [place] [address] 13 Dec, 2010 [facility] [place] [facility] [address] [id number] [place] [address] October, [facility] [place] [facility] [address] [id number] [place] [address] 20 Sep, 2010 [facility] [place] [facility] [address] [id number] [place] [address] 14 Sep, 2010 [facility] [place] [facility] [address] [id number] [place] [address] 17 Jul, 2010 [facility] [place] [facility] [address] [id number] [place] [address] 16 Jul, 2010 [facility] [address] [id number] [place] [address] May, [facility] [place] [facility] [address] [id number] [place] [address] May, [facility] [place] [facility] [address] [id number] [place] [address] May, [facility] [place] [facility] [address] [id number] [place] [address] May, [facility] [place] [facility] [address] [id number] [place] [address] Apr, [facility] [place] [facility] [address] [id number] [place] [address] Apr, [facility] [place] [facility] [address] [id number] [place] [address] Apr, [facility] [place] [facility] [address] [id number] [place] [address] Apr, [facility] [place] [facility] [address] [id number] [place] [address] Apr, [facility] [place] [facility] [address] [id number] [place] [address] 21 Mar, 2010 [facility] [address] [id number] [place] [address] 14 Mar, 2010 [facility] [place] [facility] [address] [id number] [place] [address] 13 Mar, 2010 [facility] [address] [id number] [place] [address] 12 Mar, 2010 [facility] [place] [facility] [address] [id number] [place] [address] 20 Jan, 2010 [facility] [address] [id number] [place] [address] 15 Dec, 2009 [facility] [address] [id number] [place] [address] 10 Sep, 2009 [facility] [address] [id number] [place] [address] 08 May, 2009 [facility] [address] [id number] [place] [address] 06 May, 2009 [facility] [address] [id number] [place] [address] 02 May, 2009 [facility] [address] [facility] [id number] [place] [address] 17 Apr, 2009 [facility] [place] [facility] [address] [id number] [place] [address] 17 Apr, 2009 [facility] [address] [id number], [place] [address] 10 Apr, 2009 [facility] [place] [facility] [address] [id number] [place] [address] 10 Apr, 2009 [facility] [place] [facility] [address] [id number] [place] [address] 09 Apr, 2009 [facility] [place] [facility] [address] [id number] [place] [address] Mar, [facility] [place] [address] [facility] [id number] [place] [address] Mar, [facility] [place] [address] [facility] [id number] [place] [address] Jul, IMMUNIZATIONS No Known Immunizations SOCIAL HISTORY Never Assessed REASON FOR VISIT PLAN OF CARE VITAL SIGNS Height 62 in 2014-08-28 Weight 244.2 lbs 2014-08-28 Temperature 98.6 degrees Fahrenheit 2014-08-28 Heart Rate 78 bpm 2014-08-28 Respiratory Rate 18 2014-08-28 Blood pressure systolic 130 mmHg 2014-08-28 Blood pressure diastolic 84 mmHg 2014-08-28 MEDICATIONS Unknown Medications RESULTS No Results PROCEDURES [...] and replaced VC 10/2018 Hospitalization History Cellulitis-[facility] 12/20/15 Hospitalization History [facility] [place]- Abd pain 03/07/2017 [facility] [place]- Abd pain 03/14/2017 Hospitalization History [facility] [place]- No bowel movement, rash 04/13/2017 [facility] [place]- Abd pain r/t kidney surgery on 04/10/17 04/17/2017 [facility] [place]- Abd pain r/t kidney surgery on 04/10/17 04/18/2017 [facility] [place]- Lower abd pain 04/30/2017 [facility] [place]- Cannot urinate 05/30/2017 [facility] [place]- Pancreatitis Sx 06/29/2017 [facility] [place]- Stomach pain 07/22/2017 [facility] [place]- Left side pain 08/12/2017 Hospitalization History [facility] [place]- Incision site infection 08/30/2017 Hospitalization History [facility]- Post Op Seroma/Hematoma Left Abdomen. Discharged 09/04/17- Dr Daniel 09/02/2017 [facility]ization History [facility] [place]- Right shoulder and back pain 10/22/2017 Hospitalization History [facility] [place]- Shoulder/Back pain 11/11/2017 Hospitalization History [facility] [place]- Right shoulder blade pain 12/04/2017 Hospitalization History [facility] [place]- C-Diff 12/13/2017 Hospitalization History C diff et MRSA 12/27/2017 Hospitalization History Bowel abduction [facility] 10/2018
--- OUTSIDE RECORDS SUMMARY | 2019-01-07 11:19 | XMS REPORT ---
Author Author [facility] Address [address] [place] [address] Care Team Providers Care Supervisor Of Instruction Name Role Phone CARMEN GIBBS Unavailable PROBLEMS Type Condition ICD9-CM Code LDI82-PC Code Onset Dates Condition Status SNOMED Code Problem History of renal cell carcinoma Z85.528 Active 930848430 Problem Right carpal tunnel syndrome G56.01 Active 105811046457373 Problem Nodule of left lung R91.1 Active 497382538 Problem Moderate episode of recurrent major depressive disorder F33.1 Active 442968674 Problem Restless leg syndrome G25.81 Active 03505629 Problem Morbid (severe) obesity due to excess calories E66.01 Active 806439196 Problem Chronic tension-type headache, intractable G44.221 Active 418081723 Problem Asthma J45.909 Active 260336781 Problem Chronic pancreatitis K86.1 Active 425542077 Problem Atelectasis J98.11 Active 22659030 Problem Polydipsia R63.1 Active 89043243 Problem Chronic post-traumatic stress disorder (PTSD) F43.12 Active 775466289 Problem Trichotillomania F63.3 Active 35170108 Problem Chronic fatigue R53.82 Active 37112976 Problem Intestinal malabsorption, unspecified K90.9 Active 40246902 Problem Primary osteoarthritis of right knee M17.11 Active 490215056637157 Problem Social phobia, generalized F40.11 Active 66065501 Problem Hirsuties L68.0 Active 084848508 Problem Social phobia, unspecified F40.10 Active 67656558 Problem Hyperlipidemia, mixed E78.2 Active 809642335 Problem FH: polycystic ovary Z84.2 Active 399880544 Problem Obesities, morbid E66.01 Active 811227307 Problem Menopausal symptoms N95.1 Active 62152772 Problem Conflict between patient and family Z63.9 Active 66753527 Problem Morbid obesity E66.01 Active 919337689 ALLERGIES No Information ENCOUNTERS Encounter Location Date Diagnosis [facility] [address], [place] [address] Jan, [facility] [address], [place] [address] Dec, [facility] [address], [place] [address] Dec, [facility] [id number] [address] Nov, [facility] [address], [place] [address] Nov, [facility] [id number] [place] [address] Nov, [facility] [address], [place] [address] Nov, Other acute postprocedural pain G89.18 and Unspecified abdominal pain R10.9 [facility] [address], [place] [address] October, [facility] [address], [place] [address] October, Social phobia, generalized F40.11 ; Conflict between patient and family Z63.9 and Morbid obesity E66.01 [facility] [address], [place] [address] October, [facility] [id number], [place] [address] October, [facility] [address], [place] [address] October, [facility] [id number], [place] [address] October, [address] [address] October, [facility] [address] [facility] [id number], [place] [address] October, [facility] [address] [place] [address] October, [facility] [address], [place] [address] October, Morbid obesity E66.01 ; Routine gynecological examination Z01.419 and Menopausal symptoms N95.1 [facility] [address] [facility] [id number], [place] [address] October, [facility] [address] [place] [address] Sep, [facility] [address] [facility] [id number], [place] [address] Sep, [facility] [address], [place] [address] Sep, [facility] [address], [place] [address] Sep, [facility] [address], [place] [address] Sep, Lower extremity edema R60.0 [facility] [address], [place] [address] Sep, [facility] [id number], [place] [address] Sep, Lower extremity edema R60.0 and Morbid obesity E66.01 [facility] [address] [facility] [id number], [place] [address] Sep, [facility] [address], [place] [address] Sep, [facility] [address] [facility] [id number], [place] [address] Aug, [facility] [address], [place] [address] Aug, Obesities, morbid E66.01 and Morbid obesity E66.01 [facility] [address], [place] [address] Aug, [facility] [address] [address] Jul, [facility] [address], [place] [address] Jul, [facility] [id number] [place] [address] Jul, [facility] [id number] [place] [address] Jul, Numbness of right hand R20.0 [facility] [id number] [place] [address] Jul, [facility] [id number] [place] [address] Jul, Numbness of right hand R20.0 [facility] [id number] [place] [address] Jul, [facility] [id number] [place] [address] Jul, [facility] [address] [place] [address] Jul, Right-sided thoracic back pain M54.6 [facility] [address], [place] [address] Jul, [facility] [id number] [place] [address] Jul, [facility] [id number], [place] [address] Jul, [facility] [address] [place] [address] Jul, [facility] [id number] [place] [address] Jun, [facility] [id number] [place] [address] Jun, Acute pain of right shoulder M25.511 ; Numbness of right hand R20.0 and Trapezius muscle spasm M62.838 [facility] [id number] [place] [address] Jun, [facility] [id number] [place] [address] Jun, [address] [address] [address] Jun, Cough R05 ; BMI 50.0-59.9, adult Z68.43 and Morbid obesity E66.01 [facility] [id number] [place] [address] Jun, [facility] [id number] [place] [address] Jun, [facility] [place] [id number] [place] [address] Jun, BMI 45.0-49.9, adult Z68.42 and Acute non-recurrent maxillary sinusitis J01.00 [facility] [id number] [place] [address] Jun, Acute sinusitis J01.90 ; Dysuria R30.0 and BMI 45.0-49.9, adult Z68.42 [facility] [id number] [place] [address] Jun, [facility] [id number] [place] [address] Jun, [facility] [id number] [place] [address] May, [facility] [id number] [place] [address] May, [facility] [address] [address] May, [facility] [id number] [place] [address] May, [facility] [address] [address] May, [facility] [address] [address] Apr, Generalized social phobia F40.11 ; Trichotillomania F63.3 ; Chronic post-traumatic stress disorder (PTSD) F43.12 and BMI 45.0-49.9, adult Z68.42 [place] [address] [address] Apr, [facility] [address] [address] Apr, Chronic tension-type headache, intractable G44.221 [place] [address] [address] Apr, [facility] [id number] [place] [address] Mar, [facility] [id number] [place] [address] Mar, BMI 45.0-49.9, adult Z68.42 and Pimples R23.8 [facility] [id number] [place] [address] Mar, [facility] [id number] [place] [address] Mar, [facility] [id number] [place] [address] Mar, Decreased urination R34 ; Chronic fatigue R53.82 ; Peripheral edema R60.9 ; Diarrhea, unspecified type R19.7 ; Non-intractable vomiting with nausea, unspecified vomiting type R11.2 ; BMI 45.0-49.9, adult Z68.42 and Chronic post-traumatic stress disorder (PTSD) F43.12 [facility] [address] [place] [address] Mar, Intestinal malabsorption, unspecified K90.9 ; Diarrhea, unspecified R19.7 ; Urinary urgency R39.15 ; Rectal bleeding K62.5 and Decreased urine output R34 [facility] [id number] [place] [address] Mar, Decreased urine output R34 [facility] [id number] [place] [address] Mar, Rectal bleeding K62.5 [facility] [id number] [place] [address] Mar, Rectal bleeding K62.5 [facility] [id number] [place] [address] Mar, Urinary urgency R39.15 [facility] [id number] [place] [address] Mar, Urinary urgency R39.15 [facility] [id number] [place] [address] Mar, Primary osteoarthritis of right knee M17.11 and BMI 45.0-49.9, adult Z68.42 [facility] [id number] [place] [address] Mar, [facility] [id number] [place] [address] Feb, Left upper arm pain M79.622 [facility] [id number] [place] [address] Feb, [facility] [address] [place] [address] Jan, Acute pain of right knee M25.561 ; Right upper quadrant abdominal pain R10.11 and BMI 45.0-49.9, adult Z68.42 [facility] [id number] [place] [address] Jan, [facility] [id number] [place] [address] Jan, [facility] [id number] [place] [address] Dec, [facility] [id number] [place] [address] Dec, Intestinal malabsorption, unspecified K90.9 and Diarrhea, unspecified R19.7 [facility] [id number] [place] [address] Dec, [facility] [id number] [place] [address] Dec, Strep throat J02.0 ; Intestinal malabsorption, unspecified K90.9 ; Diarrhea, unspecified R19.7 ; Postoperative seroma involving digestive system after non-digestive system procedure K91.873 ; Hyperlipidemia, mixed E78.2 and BMI 45.0-49.9, adult Z68.42 [facility] [id number] [place] [address] Dec, [facility] [id number] [place] [address] Dec, Nausea R11.0 [facility] [id number] [place] [address] Dec, [facility] [address] [place] [address] Dec, Sore throat J02.9 ; Strep throat J02.0 and BMI 45.0-49.9, adult Z68.42 [facility] [address], [place] [address] Dec, [facility] [id number] [place] [address] Dec, [facility] [id number] [place] [address] Dec, [facility] [id number] [place] [address], [place] [address] Dec, [facility] [address] [place] [address] Dec, [facility] [id number] [place] [address], [place] [address] Dec, [facility] [id number] [place] [address] Dec, [facility] [id number] [place] [address] Dec, [facility] [address], [place] [address] Dec, Clostridium difficile colitis A04.72 ; Intractable vomiting with nausea, unspecified vomiting type R11.2 and BMI 45.0-49.9, adult Z68.42 [facility] [address], [place] [address] Dec, [facility] [address], [place] [address] Nov, [facility] [address], [place] [address] Nov, [facility] [address], [place] [address] Nov, [facility] [address], [place] [address] Nov, [facility] [address] [place] [address] Nov, [facility] [address] [place] [address] Nov, Hyperlipidemia, mixed E78.2 [facility] [id number] [place] [address] Nov, Acute suppurative otitis media of right ear without spontaneous rupture of tympanic membrane, recurrence not specified H66.001 and BMI 45.0-49.9, adult Z68.42 [facility] [id number] [place] [address] Nov, Hyperlipidemia, mixed E78.2 [facility] [id number] [place] [address] Nov, [facility] [id number] [place] [address] Nov, [facility] [address] [place] [address] Nov, Nodule of left lung R91.1 [facility] [id number] [place] [address] Nov, Medicare annual wellness visit, initial Z00.00 [...] adult Z68.42 and Encounter for immunization Z23 [facility] [address] [place] [address] October, [facility] [id number] [place] [address] October, Nodule of left lung R91.1 [facility] [address] [place] [address] October, Nodule of left lung R91.1 [facility] [id number] [place] [address] October, Recurrent major depressive disorder, in partial remission F33.41 ; Restless leg syndrome G25.81 ; Generalized social phobia F40.11 ; Chronic post-traumatic stress disorder (PTSD) F43.12 ; BMI 45.0-49.9, adult Z68.42 and Trichotillomania F63.3 [facility] [address] [place] [address] October, [facility] [address] [place] [address] Sep, Chronic fatigue R53.82 and BMI 45.0-49.9, adult Z68.42 [facility] [address] [place] [address] Aug, [facility] [address] [place] [address] Jul, Restless leg syndrome G25.81 and B12 deficiency E53.8 [facility] [address] [place] [address] Jul, [facility] [address] [place] [address] Jul, [facility] [address] [place] [address] Jun, [facility] [address] [place] [address] Jun, Fatigue, unspecified type R53.83 ; History of renal cell carcinoma Z85.528 ; Chronic pancreatitis K86.1 ; Restless leg syndrome G25.81 ; Dark urine R82.99 and BMI 45.0-49.9, adult Z68.42 [facility] [address], [place] [address] Jun, [facility] [address], [place] [address] Jun, [facility] [address], [place] [address] Jun, [facility] [address], [place] [address] Jun, [facility] [address], [place] [address] May, Chronic post-traumatic stress disorder (PTSD) F43.12 ; Moderate episode of recurrent major depressive disorder F33.1 ; Trichotillomania F63.3 and Generalized social phobia F40.11 [facility] [address], [place] [address] May, [facility] [address], [place] [address] May, Chronic post-traumatic stress disorder (PTSD) F43.12 ; Moderate episode of recurrent major depressive disorder F33.1 ; Trichotillomania F63.3 and Generalized social phobia F40.11 [facility] [id number], [place] [address] May, Hyperlipidemia, mixed E78.2 ; Morbid (severe) obesity due to excess calories E66.01 ; Chronic post-traumatic stress disorder (PTSD) F43.12 ; Moderate episode of recurrent major depressive disorder F33.1 ; Trichotillomania F63.3 and Generalized social phobia F40.11 [facility] [address], [place] [address] Apr, [facility] [address], [place] [address] Apr, Hyperlipidemia, mixed E78.2 ; Morbid (severe) obesity due to excess calories E66.01 ; Chronic post-traumatic stress disorder (PTSD) F43.12 ; Moderate episode of recurrent major depressive disorder F33.1 ; Trichotillomania F63.3 and Generalized social phobia F40.11 [facility] [id number] [place] [address] Apr, Trichotillomania F63.3 ; Generalized social phobia F40.11 ; Chronic post-traumatic stress disorder (PTSD) F43.12 and Moderate episode of recurrent major depressive disorder F33.1 [place] [address] [address] Apr, [place] [address] [address] Apr, [facility] [place] [address] [address] Mar, Moderate episode of recurrent major depressive disorder F33.1 ; Trichotillomania F63.3 ; Chronic post-traumatic stress disorder (PTSD) F43.12 ; Generalized social phobia F40.11 and Restless leg syndrome G25.81 [facility] [id number] [place] [address] Mar, [facility] [id number] [place] [address] Mar, [facility] [id number] [place] [address] Feb, Left kidney mass N28.89 [facility] [address] [address] Jan, [facility] [id number] [place] [address] Dec, Polydipsia R63.1 ; Chronic pancreatitis K86.1 and Fatigue, unspecified type R53.83 [facility] [id number] [place] [address] Nov, [facility] [address] [address] Nov, [facility] [address], [place] [address] Nov, Headache around the eyes R51 [facility] [address], [place] [address] Nov, [facility] [id number] [place] [address] October, STD exposure Z20.2 [facility] [id number] [place] [address] October, STD exposure Z20.2 [facility] [address] [place] [address] October, Chronic post-traumatic stress disorder (PTSD) F43.12 ; Generalized social phobia F40.11 ; Trichotillomania F63.3 and Restless leg syndrome G25.81 [facility] [address] [place] [address] October, [facility] [id number] [place] [address] Sep, [facility] [id number] [place] [address] Aug, [facility] [id number] [place] [address] Aug, [facility] [id number] [place] [address] Aug, Neck mass R22.1 [facility] [address] [place] [address] 03 Aug, 2016 Atelectasis J98.11 [facility] [id number] [place] [address] 28 Jul, 2016 Hyperlipidemia, mixed E78.2 ; Atypical pneumonia J18.9 and Neck mass R22.1 [facility] [id number] [place] [phone] 15 Jul, 2016 Hemoptysis R04.2 [place] [address] [phone] 08 Jul, 2016 Acute non-recurrent pansinusitis J01.40 ; Hemoptysis R04.2 ; Polydipsia R63.1 and Malaise R53.81 [facility] [address] [address] May, Other viral agents as the cause of diseases classified elsewhere B97.89 and Acute upper respiratory infection, unspecified J06.9 [facility] [place] [id number] [place] [phone] Mar, Nausea R11.0 [facility] [address] [address] Dec, Hives L50.9 [facility] [place] [address] [place] [id number] [place] [phone] 14 Dec, 2015 [facility] [place] [id number] [place] [phone] Dec, Cutaneous abscess of limb, unspecified L02.419 ; Cellulitis of unspecified part of limb L03.119 ; Encounter for incision and drainage procedure Z01.89 and Encounter for recheck of abscess following incision and drainage Z09 [facility] [place] [id number] [place] [phone] 09 Dec, 2015 Abscess of leg, right L02.415 [place] [id number] [place] [phone] 08 Dec, 2015 Cellulitis of unspecified part of limb L03.119 and Cutaneous abscess of limb, unspecified L02.419 [facility] [place] [address] [place] [id number] [place] [phone] Dec, [place] [place] [address] [place] [place] [id number] [place] [phone] Dec, [facility] [id number] [place] [phone] Aug, [place] [address] [place] [id number] [place] [phone] Aug, [facility] [address] [place] [id number] [place] [phone] Jul, Pain in unspecified wrist M25.539 and Back pain, thoracic M54.6 [facility] [address] [place] [id number] [place] [phone] Jun, Strain of right wrist, initial encounter S66.911A [facility] [place] [address] [place] [id number] [place] [id number] 11 Jun, 2015 Chronic pancreatitis, unspecified pancreatitis type K86.1 ; Hirsuties L68.0 ; Morbid (severe) obesity due to excess calories E66.01 ; Chronic pancreatitis K86.1 and Asthma J45.909 [facility] [place] [address] [place] [id number] [place] [phone] May, [facility] [address] [phone] 09 May, 2015 Hyperlipidemia, mixed E78.2 and Muscle spasm of back M62.830 [facility] [place] [address] [place] [id number] [place] [phone] 30 Apr, 2015 [place] [address] [place] [id number] [place] [address] 16 Apr, 2015 Torticollis M43.6 [facility] [address] [address] 09 Apr, 2015 Right-sided thoracic back pain M54.6 [place] [address] [place] [id number] [place] [address] 15 Mar, 2015 Rash R21 [place] [address] [address] Mar, [facility] [id number] [address] Jan, [facility] [id number] [place] [address] Dec, [facility] [id number] [place] [address] Dec, Urinary frequency 788.41 and Nocturia more than twice per night 788.43 [facility] [id number] [place] [address] Nov, [facility] [id number] [place] [address] Nov, [facility] [id number] [place] [address] Nov, Abdominal pain 789.00 [facility] [id number] [place] [address] October, TDAP DX V06.1 [facility] [id number] [place] [address] October, [facility] [id number] [place] [address] October, Disturbance of skin sensation 782.0 ; Wrist pain, right 719.43 ; Hyperlipidemia 272.4 and Skin lesion of face 709.9 [facility] [id number], [place] [address] Sep, [facility] [id number] [place] [address] Sep, [facility] [id number] [place] [address] Aug, [facility] [address] [id number] [address] Aug, [facility] [address] [facility] [id number] [place] [address] 23 Aug, 2014 [facility] [place] [facility] [address] [id number] [place] [address] 23 Aug, 2014 [facility] [place] [facility] [address] [id number] [place] [address] 16 Aug, 2014 [facility] [place] [facility] [address] [id number] [place] [address] 16 Aug, 2014 [facility] [place] [facility] [address] [id number] [place] [address] 14 Aug, 2014 [facility] [place] [facility] [address] [id number] [place] [address] 14 Aug, 2014 [facility] [place] [facility] [address] [id number] [place] [address] Aug, [facility] [place] [facility] [address] [id number] [place] [address] Aug, 2014 [facility] [place] [facility] [address] [id number] [place] [address] 04 Aug, 2014 [facility] [place] [facility] [address] [id number] [place] [address] 04 Aug, 2014 [facility] [place] [facility] [address] [id number] [place] [address] Aug, [facility] [place] [facility] [address] [id number] [place] [address] Aug, [facility] [place] [facility] [address] [id number] [place] [address] Jul, [facility] [place] [facility] [address] [id number] [place] [address] Jul, 2014 [facility] [place] [facility] [address] [id number] [place] [address] 13 Jul, 2014 [facility] [place] [facility] [address] [id number] [place] [address] Jul, [facility] [place] [facility] [address] [id number] [place] [address] Jul, [facility] [place] [facility] [address] [id number] [place] [address] Jul, [facility] [place] [facility] [address] [id number] [place] [address] Jun, [facility] [place] [facility] [address] [id number] [place] [address] Jun, [facility] [place] [facility] [address] [id number] [place] [address] Jun, [facility] [place] [facility] [address] [id number] [place] [address] Jun, [facility] [place] [facility] [address] [id number] [place] [address] Jun, [facility] [place] [facility] [address] [id number] [place] [address] Jun, [facility] [place] [facility] [address] [id number] [place] [address] Jun, [facility] [place] [facility] [address] [id number] [place] [address] Jun, [facility] [place] [facility] [address] [id number] [address] May, [facility] [place] [facility] [address] [id number], [place] [address] 19 May, 2014 [facility] [place] [facility] [address] [id number] [place] [address] 18 May, 2014 [facility] [place] [facility] [address] [id number] [place] [address] 18 May, 2014 [facility] [place] [facility] [address] [id number] [place] [address] 15 May, 2014 [facility] [place] [facility] [address] [id number] [place] [address] 15 May, 2014 [facility] [place] [facility] [address] [id number] [place] [address] May, [facility] [place] [facility] [address] [id number] [place] [address] May, [facility] [place] [facility] [address] [id number] [place] [address] May, [facility] [place] [facility] [address] [id number] [place] [address] May, [facility] [place] [facility] [address] [id number] [place] [address] May, [facility] [place] [facility] [address] [id number] [place] [address] May, [facility] [place] [facility] [address] [id number] [place] [address] Apr, [facility] [place] [facility] [address] [id number] [place] [address] Apr, [facility] [place] [facility] [address] [id number] [place] [address] Apr, [facility] [place] [facility] [address] [id number] [place] [address] Apr, [facility] [place] [facility] [address] [id number] [place] [address] Apr, [facility] [place] [facility] [address] [id number] [place] [address] Apr, [facility] [place] [facility] [address] [id number] [place] [address] Apr, [facility] [place] [facility] [address] [id number] [place] [address] 14 Apr, 2014 [facility] [place] [facility] [address] [id number] [place] [address] Apr, [facility] [place] [facility] [address] [id number] [place] [address] Apr, [facility] [place] [facility] [address] [id number] [place] [address] Apr, [facility] [place] [facility] [address] [id number] [place] [address] Apr, [facility] [place] [facility] [address] [id number] [place] [address] Mar, [facility] [place] [facility] [address] [id number] [place] [address] Mar, [facility] [place] [facility] [address] [id number] [place] [address] Mar, [facility] [place] [facility] [address] [id number] [place] [address] Mar, [facility] [place] [facility] [address] [id number] [place] [address] Feb, [facility] [place] [facility] [address] [id number] [place] [address] Feb, [facility] [place] [facility] [address] [id number], [place] [address] Feb, [facility] [place] [facility] [address] [id number] [address] Feb, [facility] [place] [facility] [address] [id number], [place] [address] 05 Feb, 2014 [facility] [place] [facility] [address] [id number] [place] [address] Feb, [facility] [place] [facility] [address] [id number] [place] [address] Jan, [facility] [place] [facility] [address] [id number], [place] [address] Jan, [facility] [place] [facility] [address] [id number], [place] [address] Jan, [facility] [place] [facility] [address] [id number] [place] [address] Jan, [facility] [place] [facility] [address] [id number] [place] [address] Jan, [facility] [place] [facility] [address] [id number] [place] [address] Jan, [facility] [place] [facility] [address] [id number] [place] [address] Jan, [facility] [place] [facility] [address] [id number] [place] [address] Jan, [facility] [place] [facility] [address] [id number] [place] [address] Jan, [facility] [place] [facility] [address] [id number] [place] [address] Jan, [facility] [place] [facility] [address] [id number] [place] [address] Jan, [facility] [place] [facility] [address] [id number] [place] [address] Jan, [facility] [place] [facility] [address] [id number] [place] [address] Jan, [facility] [place] [facility] [address] [id number] [place] [address] Jan, [facility] [place] [facility] [address] [id number] [place] [address] Dec, [facility] [place] [facility] [address] [id number] [place] [address] Dec, [facility] [place] [facility] [address] [id number] [place] [address] Dec, [facility] [place] [facility] [address] [id number] [place] [address] Dec, [facility] [place] [facility] [address] [id number] [place] [address] Nov, [facility] [place] [facility] [address] [id number] [place] [address] Nov, [facility] [place] [facility] [address] [id number] [place] [address] Nov, [facility] [place] [facility] [address] [id number] [place] [address] Nov, [facility] [place] [facility] [address] [id number] [place] [address] Nov, [facility] [place] [facility] [address] [id number] [place] [address] October, [facility] [place] [facility] [address] [id number] [place] [address] October, [facility] [place] [facility] [address] [id number] [place] [address] October, [facility] [place] [facility] [address] [id number] [place] [address] October, [facility] [place] [facility] [address] [id number] [place] [address] October, [facility] [place] [facility] [address] [id number] [place] [address] October, [facility] [place] [facility] [address] [id number] [place] [address] October, [facility] [place] [facility] [address] [id number] [place] [address] October, [facility] [place] [facility] [address] [id number] [place] [address] October, [facility] [place] [facility] [address] [id number] [place] [address] October, [facility] [place] [facility] [address] [id number] [place] [address] October, [facility] [place] [facility] [address] [id number] [place] [address] October, [facility] [place] [facility] [address] [id number] [place] [address] October, [facility] [place] [facility] [address] [id number] [place] [address] October, [facility] [place] [facility] [address] [id number] [place] [address] Sep, [facility] [place] [facility] [address] [id number] [place] [address] Sep, [facility] [place] [facility] [address] [id number] [place] [address] Sep, [facility] [place] [facility] [address] [id number] [place] [address] Sep, [facility] [place] [facility] [address] [id number] [place] [address] Sep, [facility] [place] [facility] [address] [id number] [place] [address] Sep, [facility] [place] [facility] [address] [id number] [place] [address] Sep, [facility] [place] [facility] [address] [id number] [place] [address] Sep, [facility] [place] [facility] [address] [id number] [place] [address] Sep, [facility] [place] [facility] [address] [id number] [place] [address] Sep, [facility] [place] [facility] [address] [id number] [place] [address] Sep, [facility] [place] [facility] [address] [id number] [place] [address] Sep, [facility] [place] [facility] [address] [id number] [place] [address] Sep, [facility] [place] [facility] [address] [id number] [place] [address] Sep, [facility] [place] [facility] [address] [id number] [place] [address] Sep, [facility] [place] [facility] [address] [id number] [place] [address] Aug, [facility] [place] [facility] [address] [id number] [place] [address] Aug, [facility] [place] [facility] [address] [id number] [place] [address] Aug, [facility] [place] [facility] [address] [id number] [place] [address] Aug, [facility] [place] [facility] [address] [facility] [id number] [place] [address] Jul, [facility] [place] [facility] [address] [id number] [place] [address] Jul, [facility] [place] [facility] [address] [facility] [id number] [place] [address] Jul, [facility] [place] [facility] [address] [facility] [id number] [place] [address] Jul, [facility] [place] [facility] [address] [id number] [place] [address] Jun, [facility] [place] [facility] [address] [id number] [place] [address] Jun, [facility] [place] [facility] [address] [id number] [place] [address] Jun, [facility] [place] [facility] [address] [id number] [place] [address] Jun, [facility] [place] [facility] [address] [facility] [id number] [place] [address] Jun, [facility] [address] [id number] [place] [address] 10 Jun, 2013 [facility] [place] [facility] [address] [id number] [place] [address] Jun, [facility] [address] [id number] [place] [address] 08 Jun, 2013 [facility] [place] [facility] [address] [id number] [place] [address] 20 May, 2013 [facility] [address] [id number] [place] [address] 20 May, 2013 [facility] [place] [facility] [address] [id number] [place] [address] 18 May, 2013 [facility] [place] [facility] [address] [id number] [place] [address] 18 May, 2013 [facility] [address] [id number] [place] [address] 17 May, 2013 [facility] [place] [facility] [address] [id number] [place] [address] 17 May, 2013 [facility] [place] [facility] [address] [id number] [place] [address] 17 May, 2013 [facility] [place] [facility] [address] [id number] [place] [address] 17 May, 2013 [facility] [place] [facility] [address] [id number] [place] [address] 16 May, 2013 [facility] [place] [facility] [address] [id number] [place] [address] 16 May, 2013 [facility] [place] [facility] [address] [id number] [place] [address] 14 May, 2013 [facility] [place] [facility] [address] [id number] [place] [address] 14 May, 2013 [facility] [place] [facility] [address] [id number], [place] [address] May, [facility] [address] [id number] [place] [address] May, [facility] [place] [facility] [address] [id number] [place] [address] May, [facility] [address] [facility] [id number] [place] [address] May, [facility] [place] [facility] [address] [id number] [place] [address] May, [facility] [address] [id number] [place] [address] May, [facility] [place] [facility] [address] [id number] [place] [address] Apr, [facility] [address] [facility] [id number] [place] [address] Apr, [facility] [place] [facility] [address] [id number] [place] [address] Apr, [facility] [address] [id number] [place] [address] Apr, [facility] [place] [facility] [address] [facility] [id number] [place] [address] Aug, [facility] [place] [facility] [address] [id number], [place] [address] Aug, [facility] [place] [facility] [address] [facility] [id number], [place] [address] Aug, [facility] [place] [facility] [address] [id number] [place] [address] 05 Aug, 2012 [facility] [place] [facility] [address] [facility] [id number], [place] [address] Jul, [facility] [place] [facility] [address] [facility] [id number] [place] [address] Jun, [facility] [place] [facility] [address] [id number] [place] [address] Jun, [facility] [address] [id number] [place] [address] Jun, [facility] [place] [facility] [address] [id number] [place] [address] Jun, [facility] [address] [id number] [place] [address] May, [facility] [place] [facility] [address] [id number] [place] [address] May, [facility] [place] [facility] [address] [id number] [place] [address] May, [facility] [place] [facility] [address] [id number] [place] [address] May, [facility] [place] [facility] [address] [id number] [place] [address] May, [facility] [place] [facility] [address] [id number] [place] [address] May, [facility] [place] [facility] [address] [id number] [place] [address] May, [facility] [place] [facility] [address] [id number] [place] [address] Apr, [facility] [place] [facility] [address] [id number] [place] [address] Apr, [facility] [place] [facility] [address] [id number] [place] [address] Apr, [facility] [place] [facility] [address] [id number] [place] [address] Apr, [facility] [place] [facility] [address] [id number] [place] [address] Apr, [facility] [place] [facility] [address] [id number] [place] [address] Apr, [facility] [place] [facility] [address] [id number] [place] [address] Apr, [facility] [place] [facility] [address] [id number] [place] [address] Mar, [facility] [place] [facility] [address] [id number] [place] [address] Mar, [facility] [place] [facility] [address] [id number] [place] [address] Mar, [facility] [place] [facility] [address] [id number] [place] [address] Mar, [facility] [place] [facility] [address] [id number] [place] [address] Mar, [facility] [place] [facility] [address] [id number] [place] [address] Mar, [facility] [place] [facility] [address] [id number], [place] [address] Mar, [facility] [place] [facility] [address] [id number], [place] [address] Mar, [facility] [place] [facility] [address] [id number], [place] [address] Mar, [facility] [place] [facility] [address] [id number], [place] [address] Mar, [facility] [place] [facility] [address] [id number], [place] [address] Mar, [facility] [place] [facility] [address] [id number], [place] [address] Mar, [facility] [place] [facility] [address] [id number], [place] [address] 06 Feb, 2012 [facility] [place] [facility] [address] [id number], [place] [address] Jan, [facility] [place] [facility] [address] [id number] [place] [address] Jan, [facility] [place] [facility] [address] [id number] [place] [address] Jan, [facility] [place] [facility] [address] [id number] [place] [address] Jan, [facility] [place] [facility] [address] [id number] [place] [address] Jan, [facility] [place] [facility] [address] [id number] [place] [address] Dec, [facility] [place] [facility] [address] [id number] [place] [address] Dec, [facility] [place] [facility] [address] [id number] [place] [address] Nov, [facility] [place] [facility] [address] [id number] [place] [address] Nov, [facility] [place] [facility] [address] [id number] [place] [address] Nov, [facility] [place] [facility] [address] [id number] [place] [address] October, [facility] [place] [facility] [address] [id number] [place] [address] October, [facility] [place] [facility] [address] [id number] [place] [address] October, [facility] [place] [facility] [address] [id number] [place] [address] October, [facility] [place] [facility] [address] [id number] [place] [address] October, [facility] [place] [facility] [address] [id number] [place] [address] October, [facility] [place] [facility] [address] [id number] [place] [address] October, [facility] [place] [facility] [address] [id number] [place] [address] 26 Sep, 2011 [facility] [place] [facility] [address] [id number] [place] [address] Sep, [facility] [place] [facility] [address] [id number] [place] [address] 26 Sep, 2011 [facility] [place] [facility] [address] [id number] [place] [address] 25 Sep, 2011 [facility] [address] [id number] [place] [address] 24 Sep, 2011 [facility] [place] [facility] [address] [id number] [place] [address] 19 Sep, 2011 [facility] [address] [id number] [place] [address] 17 Sep, 2011 [facility] [address] [id number] [place] [address] 16 Sep, 2011 [facility] [place] [facility] [address] [id number] [place] [address] 16 Sep, 2011 [facility] [place] [facility] [address] [id number] [place] [address] 14 Sep, 2011 [facility] [place] [facility] [address] [id number] [place] [address] 13 Sep, 2011 [facility] [place] [facility] [address] [id number] [place] [address] 10 Sep, 2011 [facility] [place] [facility] [address] [id number] [place] [address] 09 Sep, 2011 [facility] [place] [facility] [address] [id number] [place] [address] 27 Aug, 2011 [facility] [place] [facility] [address] [id number] [place] [address] 12 Aug, 2011 [facility] [place] [facility] [address] [id number] [place] [address] 08 Aug, 2011 [facility] [address] [id number] [place] [address] Aug, [facility] [address] [id number] [place] [address] 28 Jul, 2011 [facility] [address] [id number] [place] [address] 22 Jul, 2011 [facility] [address] [id number] [place] [address] 16 Jul, 2011 [facility] [address] [id number] [place] [address] 15 Jul, 2011 [facility] [address] [id number] [place] [address] 14 Jul, 2011 [facility] [address] [id number] [place] [address] 10 Jul, 2011 [facility] [address] [id number] [place] [address] Jun, [facility] [address] [id number] [place] [address] Jun, [facility] [address] [facility] [id number] [place] [address] Jun, [facility] [address] [id number] [place] [address] Jun, [facility] [place] [facility] [address] [id number] [place] [address] Jun, [facility] [place] [facility] [address] [id number] [place] [address] May, [facility] [place] [facility] [address] [id number] [place] [address] May, [facility] [place] [facility] [address] [id number] [place] [address] May, [facility] [place] [facility] [address] [id number] [place] [address] 14 May, 2011 [facility] [place] [facility] [address] [id number] [place] [address] 12 May, 2011 [facility] [place] [facility] [address] [id number] [place] [address] 07 May, 2011 [facility] [place] [facility] [address] [id number] [place] [address] 05 May, 2011 [facility] [place] [facility] [address] [id number] [place] [address] Apr, [facility] [place] [facility] [address] [id number] [place] [address] 15 Apr, 2011 [facility] [place] [facility] [address] [id number] [place] [address] Apr, [facility] [place] [facility] [address] [id number] [place] [address] Apr, [facility] [place] [facility] [address] [address] [id number] [place] [address] Apr, [facility] [place] [facility] [address] [id number] [place] [address] Apr, [facility] [place] [facility] [address] [id number] [place] [address] Mar, [facility] [place] [facility] [address] [id number] [place] [address] Mar, [facility] [place] [facility] [address] [id number] [place] [address] Mar, [facility] [place] [facility] [address] [id number] [place] [address] Mar, [facility] [place] [facility] [address] [id number] [place] [address] Jan, [facility] [place] [facility] [address] [id number] [place] [address] Dec, 2010 [facility] [place] [facility] [address] [id number] [place] [address] 13 Dec, 2010 [facility] [place] [facility] [address] [id number] [place] [address] October, [facility] [place] [facility] [address] [id number] [place] [address] 20 Sep, 2010 [facility] [place] [facility] [address] [id number] [place] [address] 14 Sep, 2010 [facility] [place] [facility] [address] [id number] [place] [address] 17 Jul, 2010 [facility] [place] [facility] [address] [id number] [place] [address] 16 Jul, 2010 [facility] [place] [facility] [address] [id number] [place] [address] 31 May, 2010 [facility] [place] [facility] [address] [id number] [place] [address] May, [facility] [place] [facility] [address] [id number] [place] [address] May, [facility] [place] [facility] [address] [id number] [place] [address] May, [facility] [place] [facility] [address] [id number] [place] [address] Apr, [facility] [place] [facility] [address] [id number], [place] [address] Apr, [facility] [place] [facility] [address] [id number] [place] [address] Apr, [facility] [place] [facility] [address] [id number] [place] [address] Apr, [facility] [place] [facility] [address] [facility] [id number] [place] [address] Apr, [facility] [place] [facility] [address] [id number] [place] [address] 21 Mar, 2010 [facility] [address] [id number] [place] [address] 14 Mar, 2010 [facility] [address] [id number] [place] [address] 13 Mar, 2010 [facility] [address] [id number] [place] [address] 12 Mar, 2010 [facility] [address] [id number] [place] [address] 20 Jan, 2010 [facility] [address] [id number] [place] [address], [place] [address] 15 Dec, 2009 [facility] [address] [facility] [id number] [place] [address] 10 Sep, 2009 [facility] [address] [facility] [id number] [place] [address] 08 May, 2009 [facility] [address] [id number] [place] [address] 06 May, 2009 [facility] [address] [facility] [id number] [place] [address] 02 May, 2009 [facility] [address] [facility] [id number], [place] [address] 17 Apr, 2009 [facility] [place] [facility] [address] [facility] [id number] [place] [address] 17 Apr, 2009 [facility] [address] [facility] [id number], [place] [address] 10 Apr, 2009 [facility] [place] [facility] [address] [facility] [id number] [place] [address] 10 Apr, 2009 [facility] [place] [facility] [address] [facility] [id number] [place] [address] 09 Apr, 2009 [facility] [address] [facility] [id number] [place] [address] Mar, [facility] [address] [facility] [id number] [place] [address] Mar, [facility] [address] [facility] [id number] [place] [address] Jul, IMMUNIZATIONS No Known Immunizations SOCIAL HISTORY [...] and replaced VC 10/2018 Hospitalization History Cellulitis-[facility] 12/20/15 [facility] [place]- Abd pain 03/07/2017 [facility] [place]- Abd pain 03/14/2017 [facility] [place]- No bowel movement, rash 04/13/2017 [facility] [place]- Abd pain r/t kidney surgery on 04/10/17 04/17/2017 [facility] [place]- Abd pain r/t kidney surgery on 04/10/17 04/18/2017 Hospitalization History [facility] [place]- Lower abd pain 04/30/2017 [facility] [place]- Cannot urinate 05/30/2017 Hospitalization History [facility]- Pancreatitis Sx 06/29/2017 Hospitalization History [facility]- Stomach pain 07/22/2017 Hospitalization History [facility]- Left side pain 08/12/2017 Hospitalization History [facility]- Incision site infection 08/30/[address] [facility]- Post Op Seroma/Hematoma Left Abdomen. Discharged 09/04/17- Dr Daniel 09/02/2017 Hospitalization History [facility]- Right shoulder and back pain 10/22/2017 Hospitalization History [facility]- Shoulder/Back pain 11/11/2017 Hospitalization History [facility]- Right shoulder blade pain 12/04/2017 Hospitalization History [facility]- C-Diff 12/13/2017 Hospitalization History C diff et MRSA 12/27/2017 Hospitalization History Bowel abduction [facility] 10/2018
--- OUTSIDE RECORDS SUMMARY | 2019-01-07 11:20 | XMS REPORT ---
Author Author ANSON WADE [facility] Address [address] [place] [address] Care Team Providers Care Veterans Adviser Name Role Phone ANSON WADE Unavailable PROBLEMS Type Condition ICD9-CM Code OFR92-AS Code Onset Dates Condition Status SNOMED Code Problem History of renal cell carcinoma Z85.528 Active 722171076 Problem Right carpal tunnel syndrome G56.01 Active 028028655559669 Problem Nodule of left lung R91.1 Active 505155377 Problem Moderate episode of recurrent major depressive disorder F33.1 Active 706983165 Problem Restless leg syndrome G25.81 Active 43162191 Problem Morbid (severe) obesity due to excess calories E66.01 Active 784313139 Problem Chronic tension-type headache, intractable G44.221 Active 835424922 Problem Asthma J45.909 Active 670661468 Problem Chronic pancreatitis K86.1 Active 004394438 Problem Atelectasis J98.11 Active 39070790 Problem Polydipsia R63.1 Active 11581354 Problem Chronic post-traumatic stress disorder (PTSD) F43.12 Active 672806680 Problem Trichotillomania F63.3 Active 33398309 Problem Chronic fatigue R53.82 Active 13860929 Problem Intestinal malabsorption, unspecified K90.9 Active 14657312 Problem Primary osteoarthritis of right knee M17.11 Active 727400107327764 Problem Social phobia, generalized F40.11 Active 37661089 Problem Hirsuties L68.0 Active 307735792 Problem Social phobia, unspecified F40.10 Active 45605468 Problem Hyperlipidemia, mixed E78.2 Active 681350621 Problem FH: polycystic ovary Z84.2 Active 390152232 Problem Obesities, morbid E66.01 Active 482050265 Problem Menopausal symptoms N95.1 Active 28383331 Problem Conflict between patient and family Z63.9 Active 26232566 Problem Morbid obesity E66.01 Active 999550072 ALLERGIES No Information ENCOUNTERS Encounter Location Date Diagnosis [facility] [id number] [address] Jan, [facility] [address], [place] [address] Dec, [facility] [address], [place] [address] Dec, [facility] [id number] [address] Nov, [facility] [address], [place] [address] Nov, [facility] [id number] [place] [address] Nov, [facility] [address], [place] [address] Nov, Other acute postprocedural pain G89.18 and Unspecified abdominal pain R10.9 [facility] [address], [place] [address] October, [facility] [id number] [address] October, Social phobia, generalized F40.11 ; Conflict between patient and family Z63.9 and Morbid obesity E66.01 [facility] [address], [place] [address] October, [facility] [id number], [place] [address] October, [facility] [address], [place] [address] October, [facility] [id number] [address] October, [address] [address] October, [facility] [address] [facility] [id number] [address] October, [facility] [address] [place] [address] October, [facility] [address], [place] [address] October, Morbid obesity E66.01 ; Routine gynecological examination Z01.419 and Menopausal symptoms N95.1 [facility] [address] [facility] [id number], [place] [address] October, [facility] [address] [place] [address] Sep, [facility] [address] [facility] [id number], [place] [address] Sep, [facility] [address], [place] [address] Sep, [facility] [id number], [place] [address] Sep, [facility] [address], [place] [address] Sep, Lower extremity edema R60.0 [facility] [id number], [place] [address] Sep, [facility] [address], [place] [address] Sep, Lower extremity edema R60.0 and Morbid obesity E66.01 [facility] [address], [place] [address] Sep, [facility] [address], [place] [address] Sep, [facility] [address] [facility] [id number], [place] [address] Aug, [facility] [id number] [place] [address] Aug, Obesities, morbid E66.01 and Morbid obesity E66.01 [facility] [address], [place] [address] Aug, [facility] [address] [address] Jul, [facility] [address], [place] [address] Jul, [facility] [id number] [place] [address] Jul, [facility] [id number] [place] [address] Jul, Numbness of right hand R20.0 [facility] [id number] [place] [address] Jul, [facility] [id number] [place] [address] Jul, Numbness of right hand R20.0 [facility] [address] [place] [address] Jul, [facility] [id number], [place] [address] Jul, [facility] [address], [place] [address] Jul, Right-sided thoracic back pain M54.6 [facility] [address], [place] [address] Jul, [facility] [id number] [place] [address] Jul, [facility] [id number], [place] [address] Jul, [facility] [id number] [place] [address] Jul, [facility] [id number] [place] [address] Jun, [facility] [address] [address] Jun, Acute pain of right shoulder M25.511 ; Numbness of right hand R20.0 and Trapezius muscle spasm M62.838 [place] [address] [address] Jun, [place] [address] [address] Jun, [place] [address] [address] Jun, Cough R05 ; BMI 50.0-59.9, adult Z68.43 and Morbid obesity E66.01 [place] [address] [address] Jun, [place] [id number] [place] [address] Jun, [facility] [place] [id number] [place] [address] Jun, BMI 45.0-49.9, adult Z68.42 and Acute non-recurrent maxillary sinusitis J01.00 [facility] [id number] [place] [address] Jun, Acute sinusitis J01.90 ; Dysuria R30.0 and BMI 45.0-49.9, adult Z68.42 [place] [address] [address] Jun, [place] [id number] [place] [address] Jun, [place] [id number] [place] [address] May, [facility] [id number] [place] [address] May, [facility] [address] [address] May, [facility] [id number] [place] [address] May, [facility] [address] [address] May, [facility] [id number] [place] [address] Apr, Generalized social phobia F40.11 ; Trichotillomania F63.3 ; Chronic post-traumatic stress disorder (PTSD) F43.12 and BMI 45.0-49.9, adult Z68.42 [place] [id number] [place] [address] Apr, [facility] [id number] [place] [address] Apr, Chronic tension-type headache, intractable G44.221 [place] [id number] [place] [address] Apr, [facility] [id number] [place] [address] Mar, [facility] [id number] [place] [address] Mar, BMI 45.0-49.9, adult Z68.42 and Pimples R23.8 [facility] [id number] [place] [address] Mar, [facility] [id number] [place] [address] Mar, [facility] [id number] [place] [address] Mar, Decreased urination R34 ; Chronic fatigue R53.82 ; Peripheral edema R60.9 ; Diarrhea, unspecified type R19.7 ; Non-intractable vomiting with nausea, unspecified vomiting type R11.2 ; BMI 45.0-49.9, adult Z68.42 and Chronic post-traumatic stress disorder (PTSD) F43.12 [facility] [id number] [place] [address] Mar, Intestinal malabsorption, unspecified K90.9 ; Diarrhea, unspecified R19.7 ; Urinary urgency R39.15 ; Rectal bleeding K62.5 and Decreased urine output R34 [place] [address] [address] Mar, Decreased urine output R34 [facility] [address] [address] Mar, Rectal bleeding K62.5 [facility] [address] [address] Mar, Rectal bleeding K62.5 [facility] [id number] [place] [address] Mar, Urinary urgency R39.15 [facility] [id number] [place] [address] Mar, Urinary urgency R39.15 [facility] [id number] [place] [address] Mar, Primary osteoarthritis of right knee M17.11 and BMI 45.0-49.9, adult Z68.42 [facility] [id number] [place] [address] Mar, [facility] [address] [address] Feb, Left upper arm pain M79.622 [facility] [id number] [place] [address] Feb, [facility] [address], [place] [address] Jan, Acute pain of right knee M25.561 ; Right upper quadrant abdominal pain R10.11 and BMI 45.0-49.9, adult Z68.42 [place] [id number] [place] [address] Jan, [place] [id number] [place] [address] Jan, [place] [id number] [place] [address] Dec, [place] [id number] [place] [address] Dec, Intestinal malabsorption, unspecified K90.9 and Diarrhea, unspecified R19.7 [place] [id number] [place] [address] Dec, [place] [id number] [place] [address] Dec, Strep throat J02.0 ; Intestinal malabsorption, unspecified K90.9 ; Diarrhea, unspecified R19.7 ; Postoperative seroma involving digestive system after non-digestive system procedure K91.873 ; Hyperlipidemia, mixed E78.2 and BMI 45.0-49.9, adult Z68.42 [place] [id number] [place] [address] Dec, [place] [id number] [place] [address] Dec, Nausea R11.0 [place] [id number] [place] [address] Dec, [facility] [id number] [place] [address] Dec, Sore throat J02.9 ; Strep throat J02.0 and BMI 45.0-49.9, adult Z68.42 [facility] [address] [facility] [id number] [place] [address] Dec, [facility] [address] [facility] [id number] [place] [address] Dec, [facility] [address] [facility] [id number] [place] [address] Dec, [facility] [id number] [place] [address] Dec, [facility] [address] [facility] [id number] [place] [address] Dec, [facility] [id number] [place] [address] Dec, [facility] [id number] [place] [address] Dec, [facility] [id number] [place] [address] Dec, [facility] [address], [place] [address] Dec, Clostridium difficile colitis A04.72 ; Intractable vomiting with nausea, unspecified vomiting type R11.2 and BMI 45.0-49.9, adult Z68.42 [facility] [address], [place] [address] Dec, [facility] [id number], [place] [address] Nov, [facility] [id number] [place] [address] Nov, [facility] [address], [place] [address] Nov, [facility] [id number] [place] [address] Nov, [facility] [id number] [place] [address] Nov, [facility] [id number] [place] [address] Nov, Hyperlipidemia, mixed E78.2 [facility] [id number] [place] [address] Nov, Acute suppurative otitis media of right ear without spontaneous rupture of tympanic membrane, recurrence not specified H66.001 and BMI 45.0-49.9, adult Z68.42 [place] [address] [address] Nov, Hyperlipidemia, mixed E78.2 [place] [address] [address] Nov, [place] [address] [address] Nov, [place] [id number] [place] [address] Nov, Nodule of left lung R91.1 [place] [address] [address] Nov, 2017 Medicare annual wellness visit, [...] adult Z68.42 and Encounter for immunization Z23 [place] [id number] [place] [address] October, [place] [id number] [place] [address] October, Nodule of left lung R91.1 [place] [id number] [place] [address] October, Nodule of left lung R91.1 [place] [address] [address] October, Recurrent major depressive disorder, in partial remission F33.41 ; Restless leg syndrome G25.81 ; Generalized social phobia F40.11 ; Chronic post-traumatic stress disorder (PTSD) F43.12 ; BMI 45.0-49.9, adult Z68.42 and Trichotillomania F63.3 [place] [address] [address] October, [place] [address] [address] Sep, Chronic fatigue R53.82 and BMI 45.0-49.9, adult Z68.42 [place] [address] [address] Aug, [place] [address] [address] Jul, Restless leg syndrome G25.81 and B12 deficiency E53.8 [place] [id number] [place] [address] Jul, [place] [id number] [place] [address] Jul, [place] [id number] [place] [address] Jun, [place] [address] [address] Jun, Fatigue, unspecified type R53.83 ; History of renal cell carcinoma Z85.528 ; Chronic pancreatitis K86.1 ; Restless leg syndrome G25.81 ; Dark urine R82.99 and BMI 45.0-49.9, adult Z68.42 [place] [address], [place] [address] Jun, [facility] [address], [place] [address] Jun, [facility] [address], [place] [address] Jun, [facility] [address], [place] [address] Jun, [facility] [address], [place] [address] May, Chronic post-traumatic stress disorder (PTSD) F43.12 ; Moderate episode of recurrent major depressive disorder F33.1 ; Trichotillomania F63.3 and Generalized social phobia F40.11 [place] [address], [place] [address] May, [facility] [address], [place] [address] May, Chronic post-traumatic stress disorder (PTSD) F43.12 ; Moderate episode of recurrent major depressive disorder F33.1 ; Trichotillomania F63.3 and Generalized social phobia F40.11 [facility] [id number] [address] May, Hyperlipidemia, mixed E78.2 ; Morbid (severe) obesity due to excess calories E66.01 ; Chronic post-traumatic stress disorder (PTSD) F43.12 ; Moderate episode of recurrent major depressive disorder F33.1 ; Trichotillomania F63.3 and Generalized social phobia F40.11 [facility] [address], [place] [address] Apr, [facility] [id number], [place] [address] Apr, Hyperlipidemia, mixed E78.2 ; Morbid (severe) obesity due to excess calories E66.01 ; Chronic post-traumatic stress disorder (PTSD) F43.12 ; Moderate episode of recurrent major depressive disorder F33.1 ; Trichotillomania F63.3 and Generalized social phobia F40.11 [facility] [id number] [place] [address] Apr, Trichotillomania F63.3 ; Generalized social phobia F40.11 ; Chronic post-traumatic stress disorder (PTSD) F43.12 and Moderate episode of recurrent major depressive disorder F33.1 [place] [address] [address] Apr, [place] [id number] [place] [address] Apr, [place] [id number] [place] [address] Mar, Moderate episode of recurrent major depressive disorder F33.1 ; Trichotillomania F63.3 ; Chronic post-traumatic stress disorder (PTSD) F43.12 ; Generalized social phobia F40.11 and Restless leg syndrome G25.81 [place] [id number] [place] [address] Mar, [place] [id number] [place] [address] Mar, [place] [id number] [place] [address] Feb, Left kidney mass N28.89 [facility] [address] [address] Jan, [facility] [id number] [place] [address] Dec, Polydipsia R63.1 ; Chronic pancreatitis K86.1 and Fatigue, unspecified type R53.83 [facility] [id number] [place] [address] Nov, [place] [address] [address] Nov, [facility] [id number] [place] [address] Nov, Headache around the eyes R51 [facility] [id number] [place] [address] Nov, [facility] [id number] [place] [address] October, STD exposure Z20.2 [facility] [id number] [place] [address] October, STD exposure Z20.2 [place] [id number] [place] [address] October, Chronic post-traumatic stress disorder (PTSD) F43.12 ; Generalized social phobia F40.11 ; Trichotillomania F63.3 and Restless leg syndrome G25.81 [facility] [id number] [place] [address] October, [facility] [id number] [place] [address] Sep, [facility] [id number] [place] [address] Aug, [place] [id number] [place] [address] Aug, [facility] [id number] [place] [address] Aug, Neck mass R22.1 [facility] [id number] [place] [address] Aug, Atelectasis J98.11 [facility] [address] [place] [address] 28 Jul, 2016 Hyperlipidemia, mixed E78.2 ; Atypical pneumonia J18.9 and Neck mass R22.1 [place] [id number] [place] [phone] 15 Jul, 2016 Hemoptysis R04.2 [place] [address] [place] [id number] [place] [phone] 08 Jul, 2016 Acute non-recurrent pansinusitis J01.40 ; Hemoptysis R04.2 ; Polydipsia R63.1 and Malaise R53.81 [facility] [place] [address] [place] [id number] [place] [phone] May, Other viral agents as the cause of diseases classified elsewhere B97.89 and Acute upper respiratory infection, unspecified J06.9 [facility] [place] [id number] [place] [phone] Mar, Nausea R11.0 [facility] [place] [id number] [place] [phone] Dec, Hives L50.9 [place] [address] [place] [id number] [place] [phone] 14 Dec, 2015 [facility] [place] [id number] [place] [phone] Dec, Cutaneous abscess of limb, unspecified L02.419 ; Cellulitis of unspecified part of limb L03.119 ; Encounter for incision and drainage procedure Z01.89 and Encounter for recheck of abscess following incision and drainage Z09 [facility] [place] [address] [place] [id number] [place] [phone] 09 Dec, 2015 Abscess of leg, right L02.415 [place] [id number] [place] [phone] 08 Dec, 2015 Cellulitis of unspecified part of limb L03.119 and Cutaneous abscess of limb, unspecified L02.419 [place] [address] [place] [id number] [place] [phone] Dec, [place] [address] [place] [id number] [place] [phone] Dec, [facility] [id number] [place] [phone] Aug, [place] [address] [place] [id number] [place] [phone] Aug, [facility] [address] [place] [id number] [place] [phone] Jul, Pain in unspecified wrist M25.539 and Back pain, thoracic M54.6 [facility] [id number] [place] [phone] Jun, Strain of right wrist, initial encounter S66.911A [place] [address] [place] [id number] [place] [phone] 11 Jun, 2015 Chronic pancreatitis, unspecified pancreatitis type K86.1 ; Hirsuties L68.0 ; Morbid (severe) obesity due to excess calories E66.01 ; Chronic pancreatitis K86.1 and Asthma J45.909 [place] [address] [place] [id number] [place] [phone] May, [place] [address] [place] [id number] [place] [phone] 09 May, 2015 Hyperlipidemia, mixed E78.2 and Muscle spasm of back M62.830 [place] [id number] [place] [address] 30 Apr, 2015 [place] [id number] [place] [address] 16 Apr, 2015 Torticollis M43.6 [place] [id number] [place] [address] 09 Apr, 2015 Right-sided thoracic back pain M54.6 [place] [id number] [place] [address] 15 Mar, 2015 Rash R21 [place] [address] [place] [address] Mar, [facility] [id number] [place] [address] Jan, [facility] [id number] [place] [address] Dec, [facility] [id number] [place] [address] Dec, Urinary frequency 788.41 and Nocturia more than twice per night 788.43 [facility] [id number] [place] [address] Nov, [facility] [id number] [place] [address] Nov, [facility] [id number] [place] [address] Nov, Abdominal pain 789.00 [facility] [id number] [place] [address] October, TDAP DX V06.1 [facility] [id number] [place] [address] October, [facility] [id number] [place] [address] October, Disturbance of skin sensation 782.0 ; Wrist pain, right 719.43 ; Hyperlipidemia 272.4 and Skin lesion of face 709.9 [facility] [id number] [address] Sep, [facility] [id number] [place] [address] Sep, [facility] [id number] [place] [address] Aug, [facility] [id number] [place] [address] Aug, [facility] [place] [facility] [address] [id number] [place] [address] 23 Aug, 2014 [facility] [place] [facility] [address] [id number] [place] [address] 23 Aug, 2014 [facility] [place] [facility] [address] [id number] [place] [address] 16 Aug, 2014 [facility] [place] [facility] [address] [id number] [place] [address] 16 Aug, 2014 [facility] [place] [facility] [address] [id number] [place] [address] 14 Aug, 2014 [facility] [place] [facility] [address] [id number] [place] [address] 14 Aug, 2014 [facility] [place] [facility] [address] [id number] [place] [address] Aug, [facility] [place] [facility] [address] [id number] [place] [address] 11 Aug, 2014 [facility] [place] [facility] [address] [id number] [place] [address] 04 Aug, 2014 [facility] [place] [facility] [address] [id number] [place] [address] 04 Aug, 2014 [facility] [place] [facility] [address] [id number] [place] [address] Aug, [facility] [place] [facility] [address] [id number] [place] [address] Aug, [facility] [place] [facility] [address] [id number] [place] [address] Jul, [facility] [place] [facility] [address] [id number] [place] [address] Jul, [facility] [place] [facility] [address] [id number] [place] [address] 13 Jul, 2014 [facility] [place] [facility] [address] [id number] [address] Jul, [facility] [address] [id number] [place] [address] Jul, [facility] [place] [facility] [address] [id number] [place] [address] Jul, [facility] [place] [facility] [address] [id number] [place] [address] Jun, [facility] [place] [facility] [address] [id number] [place] [address] Jun, [facility] [address] [id number] [place] [address] Jun, [facility] [place] [facility] [address] [id number] [place] [address] Jun, [facility] [address] [id number] [place] [address] Jun, [facility] [place] [facility] [address] [id number] [place] [address] Jun, [facility] [address] [id number] [address] Jun, [facility] [place] [facility] [address] [id number] [place] [address] Jun, [facility] [address] [id number], [place] [address] May, [facility] [place] [facility] [address] [id number], [place] [address] 19 May, 2014 [facility] [place] [facility] [address] [id number] [place] [address] 18 May, 2014 [facility] [place] [facility] [address] [id number] [place] [address] 18 May, 2014 [facility] [place] [facility] [address] [id number] [place] [address] 15 May, 2014 [facility] [place] [facility] [address] [id number] [place] [address] 15 May, 2014 [facility] [place] [facility] [address] [id number] [place] [address] May, [facility] [place] [facility] [address] [id number] [place] [address] May, [facility] [place] [facility] [address] [id number] [place] [address] May, [facility] [place] [facility] [address] [id number] [place] [address] May, [facility] [place] [facility] [address] [id number] [place] [address] May, [facility] [place] [facility] [address] [id number] [place] [address] May, [facility] [place] [facility] [address] [id number] [place] [address] Apr, [facility] [place] [facility] [address] [id number] [place] [address] Apr, [facility] [place] [facility] [address] [id number] [place] [address] Apr, [facility] [place] [facility] [address] [id number] [place] [address] Apr, [facility] [place] [facility] [address] [id number] [place] [address] Apr, [facility] [place] [facility] [address] [id number] [place] [address] Apr, [facility] [place] [facility] [address] [id number] [place] [address] Apr, [facility] [place] [facility] [address] [id number] [place] [address] Apr, [facility] [place] [facility] [address] [id number] [place] [address] Apr, [facility] [place] [facility] [address] [id number] [place] [address] Apr, [facility] [place] [facility] [address] [id number] [place] [address] Apr, [facility] [place] [facility] [address] [id number] [place] [address] Apr, [facility] [place] [facility] [address] [id number] [place] [address] Mar, [facility] [place] [facility] [address] [id number] [place] [address] Mar, [facility] [place] [facility] [address] [id number] [place] [address] Mar, [facility] [place] [facility] [address] [id number] [place] [address] Mar, [facility] [place] [facility] [address] [id number] [place] [address] Feb, [facility] [place] [facility] [address] [id number] [place] [address] Feb, [facility] [place] [facility] [address] [id number] [place] [address] 05 Feb, 2014 [facility] [place] [facility] [address] [id number] [place] [address] Feb, [facility] [place] [facility] [address] [id number], [place] [address] 05 Feb, 2014 [facility] [place] [facility] [address] [id number] [place] [address] Feb, [facility] [place] [facility] [address] [id number] [place] [address] Jan, [facility] [place] [facility] [address] [id number] [place] [address] Jan, [facility] [place] [facility] [address] [id number] [place] [address] Jan, [facility] [place] [facility] [address] [id number] [place] [address] Jan, [facility] [place] [facility] [address] [id number] [place] [address] Jan, [facility] [place] [facility] [address] [id number] [place] [address] Jan, [facility] [place] [facility] [address] [id number] [place] [address] Jan, [facility] [place] [facility] [address] [id number] [place] [address] Jan, [facility] [place] [facility] [address] [id number] [place] [address] Jan, [facility] [place] [facility] [address] [id number] [place] [address] Jan, [facility] [place] [facility] [address] [id number] [place] [address] Jan, [facility] [place] [facility] [address] [id number] [place] [address] Jan, [facility] [place] [facility] [address] [id number] [place] [address] Jan, [facility] [place] [facility] [address] [id number] [place] [address] Jan, [facility] [place] [facility] [address] [id number] [place] [address] Dec, [facility] [place] [facility] [address] [id number] [place] [address] Dec, [facility] [place] [facility] [address] [id number] [place] [address] Dec, [facility] [place] [facility] [address] [id number] [place] [address] Dec, [facility] [place] [facility] [address] [id number] [place] [address] Nov, [facility] [place] [facility] [address] [id number] [place] [address] Nov, [facility] [place] [facility] [address] [id number] [place] [address] Nov, [facility] [place] [facility] [address] [id number] [place] [address] Nov, [facility] [place] [facility] [address] [id number] [place] [address] Nov, [facility] [place] [facility] [address] [id number] [place] [address] October, [facility] [place] [facility] [address] [id number] [place] [address] October, [facility] [place] [facility] [address] [id number] [place] [address] October, [facility] [place] [facility] [address] [id number] [place] [address] October, [facility] [place] [facility] [address] [id number] [place] [address] October, [facility] [place] [facility] [address] [id number] [place] [address] October, [facility] [place] [facility] [address] [id number] [place] [address] October, [facility] [place] [facility] [address] [id number] [place] [address] October, [facility] [place] [facility] [address] [id number] [place] [address] October, [facility] [place] [facility] [address] [id number] [place] [address] October, [facility] [place] [facility] [address] [id number] [place] [address] October, [facility] [place] [facility] [address] [id number] [place] [address] October, [facility] [place] [facility] [address] [id number] [place] [address] October, [facility] [place] [facility] [address] [id number] [place] [address] October, [facility] [place] [facility] [address] [id number] [place] [address] Sep, [facility] [place] [facility] [address] [id number] [place] [address] Sep, [facility] [place] [facility] [address] [id number] [place] [address] Sep, [facility] [place] [facility] [address] [id number] [place] [address] Sep, [facility] [place] [facility] [address] [id number] [place] [address] Sep, [facility] [place] [facility] [address] [id number] [place] [address] Sep, [facility] [place] [facility] [address] [id number] [place] [address] Sep, [facility] [place] [facility] [address] [id number] [place] [address] Sep, [facility] [place] [facility] [address] [id number] [place] [address] Sep, [facility] [place] [facility] [address] [id number] [place] [address] Sep, [facility] [place] [facility] [address] [id number] [place] [address] Sep, [facility] [place] [facility] [address] [id number] [place] [address] Sep, [facility] [place] [facility] [address] [id number] [place] [address] Sep, [facility] [address] [id number] [place] [address] Sep, [facility] [place] [facility] [address] [id number] [place] [address] Sep, [facility] [place] [facility] [address] [id number] [place] [address] Aug, [facility] [place] [facility] [address] [id number] [place] [address] Aug, [facility] [place] [facility] [address] [id number] [place] [address] Aug, [facility] [place] [facility] [address] [id number] [place] [address] Aug, [facility] [place] [facility] [address] [id number] [place] [address] Jul, [facility] [place] [facility] [address] [id number] [place] [address] Jul, [facility] [place] [facility] [address] [id number] [place] [address] Jul, [facility] [place] [facility] [address] [id number] [place] [address] Jul, [facility] [place] [facility] [address] [id number] [place] [address] Jun, [facility] [place] [facility] [address] [id number] [place] [address] Jun, [facility] [place] [facility] [address] [id number] [place] [address] Jun, [facility] [place] [facility] [address] [id number] [place] [address] Jun, [facility] [place] [facility] [address] [id number] [place] [address] Jun, [facility] [place] [facility] [address] [id number] [place] [address] 10 Jun, 2013 [facility] [place] [facility] [address] [id number] [place] [address] 08 Jun, 2013 [facility] [place] [facility] [address] [id number] [place] [address] 08 Jun, 2013 [facility] [place] [facility] [address] [id number] [place] [address] 20 May, 2013 [facility] [place] [facility] [address] [id number] [place] [address] 20 May, 2013 [facility] [place] [facility] [address] [id number] [place] [address] 18 May, 2013 [facility] [place] [facility] [address] [id number] [place] [address] 18 May, 2013 [facility] [place] [facility] [address] [id number] [place] [address] 17 May, 2013 [facility] [place] [facility] [address] [id number] [place] [id number] 17 May, 2013 [facility] [place] [facility] [address] [id number] [place] [address] 17 May, 2013 [facility] [place] [facility] [address] [id number] [place] [address] 17 May, 2013 [facility] [place] [facility] [address] [id number], [place] [address] 16 May, 2013 [facility] [place] [facility] [address] [id number] [place] [address] 16 May, 2013 [facility] [place] [facility] [address] [id number] [place] [address] 14 May, 2013 [facility] [place] [facility] [address] [id number] [place] [address] 14 May, 2013 [facility] [place] [facility] [address] [id number], [place] [address] May, [facility] [address] [id number] [place] [address] May, [facility] [address] [id number] [place] [address] May, [facility] [address] [facility] [id number] [place] [address] May, [facility] [address] [id number] [place] [address] May, [facility] [address] [facility] [id number] [place] [address] May, [facility] [address] [facility] [id number] [place] [address] Apr, [facility] [id number] [address] Apr, [facility] [address] [facility] [id number] [place] [address] Apr, [facility] [id number] [place] [address] Apr, [facility] [address] [id number] [place] [address] Aug, [facility] [address] [id number], [place] [address] Aug, [facility] [place] [facility] [address] [facility] [id number], [place] [address] Aug, [facility] [address] [id number], [place] [address] 05 Aug, 2012 [facility] [place] [facility] [address] [facility] [id number], [place] [address] 04 Jul, 2012 [facility] [address] [facility] [id number], [place] [address] Jun, [facility] [address] [id number] [place] [address] Jun, [facility] [place] [facility] [address] [id number] [place] [address] Jun, [facility] [place] [facility] [address] [id number] [place] [address] Jun, [facility] [place] [facility] [address] [id number] [place] [address] May, [facility] [place] [facility] [address] [id number] [place] [address] May, [facility] [place] [facility] [address] [id number] [place] [address] May, [facility] [place] [facility] [address] [id number] [place] [address] May, [facility] [place] [facility] [address] [id number] [place] [address] May, [facility] [place] [facility] [address] [id number] [place] [address] May, [facility] [place] [facility] [address] [id number] [place] [address] May, [facility] [place] [facility] [address] [id number] [place] [address] Apr, [facility] [place] [facility] [address] [id number] [place] [address] Apr, [facility] [place] [facility] [address] [id number] [place] [address] Apr, [facility] [place] [facility] [address] [id number] [place] [address] Apr, [facility] [place] [facility] [address] [id number] [place] [address] Apr, [facility] [place] [facility] [address] [id number] [place] [address] Apr, [facility] [place] [facility] [address] [id number] [place] [address] Apr, [facility] [place] [facility] [address] [id number] [place] [address] Mar, [facility] [place] [facility] [address] [id number] [place] [address] Mar, [facility] [place] [facility] [address] [id number], [place] [address] Mar, [facility] [place] [facility] [address] [id number] [place] [address] Mar, [facility] [place] [facility] [address] [id number], [place] [address] Mar, [facility] [place] [facility] [address] [id number] [place] [address] Mar, [facility] [place] [facility] [address] [id number], [place] [address] Mar, [facility] [place] [facility] [address] [id number], [place] [address] Mar, [facility] [place] [facility] [address] [id number], [place] [address] Mar, [facility] [place] [facility] [address] [id number], [place] [address] Mar, [facility] [place] [facility] [address] [id number], [place] [address] Mar, [facility] [place] [facility] [address] [id number], [place] [address] Mar, [facility] [place] [facility] [address] [facility] [id number], [place] [address] Feb, [facility] [place] [facility] [address] [id number], [place] [address] Jan, [facility] [place] [facility] [address] [id number] [place] [address] Jan, [facility] [place] [facility] [address] [id number] [place] [address] Jan, [facility] [place] [facility] [address] [id number] [place] [address] Jan, [facility] [place] [facility] [address] [id number] [place] [address] Jan, [facility] [place] [facility] [address] [id number] [place] [address] Dec, [facility] [place] [facility] [address] [id number] [place] [address] Dec, [facility] [place] [facility] [address] [id number] [place] [address] Nov, [facility] [place] [facility] [address] [id number] [place] [address] Nov, [facility] [place] [facility] [address] [id number] [place] [address] Nov, [facility] [place] [facility] [address] [id number] [place] [address] October, [facility] [address] [id number] [place] [address] October, [facility] [place] [facility] [address] [id number] [place] [address] October, [facility] [place] [facility] [address] [id number] [place] [address] October, [facility] [place] [facility] [address] [id number] [place] [address] October, [facility] [place] [facility] [address] [id number] [place] [address] October, [facility] [place] [facility] [address] [id number] [place] [address] October, [facility] [place] [facility] [address] [id number] [place] [address] Sep, [facility] [address] [id number] [place] [address] Sep, [facility] [address] [id number] [place] [address] Sep, [facility] [address] [id number] [place] [address] Sep, [facility] [address] [id number] [place] [address] 24 Sep, 2011 [facility] [address] [id number] [place] [address] Sep, [facility] [address] [id number] [place] [address] 17 Sep, 2011 [facility] [address] [id number] [place] [address] 16 Sep, 2011 [facility] [address] [id number] [place] [address] 16 Sep, 2011 [facility] [address] [id number] [place] [address] 14 Sep, 2011 [facility] [address] [id number] [place] [address] 13 Sep, 2011 [facility] [address] [id number] [place] [address] 10 Sep, 2011 [facility] [place] [facility] [address] [id number] [place] [address] 09 Sep, 2011 [facility] [place] [facility] [address] [id number] [place] [address] 27 Aug, 2011 [facility] [place] [facility] [address] [id number] [place] [address] 12 Aug, 2011 [facility] [place] [facility] [address] [id number] [place] [address] 08 Aug, 2011 [facility] [address] [id number] [place] [address] Aug, [facility] [place] [facility] [address] [id number] [place] [address] 28 Jul, 2011 [facility] [place] [facility] [address] [id number] [place] [address] 22 Jul, 2011 [facility] [place] [facility] [address] [id number] [place] [address] 16 Jul, 2011 [facility] [place] [facility] [address] [id number] [place] [address] 15 Jul, 2011 [facility] [place] [facility] [address] [id number] [place] [address] 14 Jul, 2011 [facility] [address] [id number] [place] [address] 10 Jul, 2011 [facility] [place] [facility] [address] [id number] [place] [address] 30 Jun, 2011 [facility] [place] [facility] [address] [id number] [place] [address] Jun, [facility] [address] [id number] [place] [address] Jun, [facility] [address] [id number] [place] [address] Jun, [facility] [place] [facility] [address] [id number] [place] [address] Jun, [facility] [place] [facility] [address] [id number] [place] [address] May, [facility] [place] [facility] [address] [id number] [place] [address] May, [facility] [place] [facility] [address] [id number] [place] [address] May, [facility] [place] [facility] [address] [id number] [place] [address] 14 May, 2011 [facility] [place] [facility] [address] [id number] [place] [address] May, [facility] [place] [facility] [address] [id number] [place] [address] May, [facility] [place] [facility] [address] [id number] [place] [address] 05 May, 2011 [facility] [place] [facility] [address] [id number] [place] [address] Apr, [facility] [place] [facility] [address] [id number] [place] [address] Apr, [facility] [place] [facility] [address] [id number] [place] [address] Apr, [facility] [place] [facility] [address] [id number] [place] [address] Apr, [facility] [place] [facility] [address] [id number] [place] [address] Apr, [facility] [place] [facility] [address] [id number] [place] [address] Apr, [facility] [place] [facility] [address] [id number] [place] [address] Mar, [facility] [place] [facility] [address] [id number] [place] [address] Mar, [facility] [facility] [address] [id number] [place] [address] Mar, [facility] [place] [facility] [address] [id number] [place] [address] Mar, [facility] [place] [facility] [address] [id number] [place] [address] Jan, [facility] [place] [facility] [address] [id number] [place] [address] 19 Dec, 2010 [facility] [address] [id number] [place] [address] 13 Dec, 2010 [facility] [place] [facility] [address] [id number] [place] [address] October, [facility] [place] [facility] [address] [id number] [place] [address] 20 Sep, 2010 [facility] [place] [facility] [address] [id number] [place] [address] 14 Sep, 2010 [facility] [address] [id number] [place] [address] 17 Jul, 2010 [facility] [place] [facility] [address] [id number] [place] [address] 16 Jul, 2010 [facility] [address] [id number] [place] [address] May, [facility] [facility] [address] [id number] [place] [address] May, [facility] [address] [id number] [place] [address] May, [facility] [place] [facility] [address] [id number] [place] [address] May, [facility] [place] [facility] [address] [id number] [place] [address] Apr, [facility] [place] [facility] [address] [id number] [place] [address] Apr, [facility] [place] [facility] [address] [id number] [place] [address] Apr, [facility] [facility] [address] [id number] [place] [address] Apr, [facility] [facility] [address] [id number] [place] [address] Apr, [facility] [place] [facility] [address] [id number] [place] [address] 21 Mar, 2010 [facility] [address] [id number] [place] [address] 14 Mar, 2010 [facility] [facility] [address] [id number] [place] [address] 13 Mar, 2010 [facility] [address] [id number] [place] [address] 12 Mar, 2010 [facility] [facility] [address] [id number] [place] [address] 20 Jan, 2010 [facility] [address] [id number] [place] [address] 15 Dec, 2009 [facility] [address] [id number] [place] [address] 10 Sep, 2009 [facility] [address] [id number] [place] [address] 08 May, 2009 [facility] [address] [id number] [place] [address] 06 May, 2009 [facility] [address] [id number] [place] [address] 02 May, 2009 [facility] [address] [facility] [id number] [place] [address] 17 Apr, 2009 [facility] [address] [id number] [place] [address] 17 Apr, 2009 [facility] [address] [id number] [address] 10 Apr, 2009 [facility] [address] [id number] [place] [address] 10 Apr, 2009 [facility] [address] [id number] [place] [address] 09 Apr, 2009 [facility] [facility] [address] [id number] [place] [address] Mar, [facility] [address] [facility] [id number] [place] [address] Mar, [facility] [address] [facility] [id number] [place] [address] Jul, IMMUNIZATIONS No Known Immunizations SOCIAL HISTORY Never Assessed REASON FOR VISIT PLAN OF CARE VITAL SIGNS Height 62 in 2014-09-06 Weight 245.06 lbs 2014-09-06 Temperature 97.5 degrees Fahrenheit 2014-09-06 Heart Rate 80 bpm 2014-09-06 Respiratory Rate 18 2014-09-06 Blood pressure systolic 126 mmHg 2014-09-06 Blood pressure diastolic 80 mmHg 2014-09-06 MEDICATIONS Unknown Medications RESULTS No Results PROCEDURES Procedure Date Ordered Result Body Site X-RAY EXAM OF LOWER SPINE September 06, 2014 X-RAY EXAM OF THORACIC SPINE September 06, 2014 X-RAY EXAM OF NECK SPINE September 06, 2014 INSTRUCTIONS MEDICATIONS ADMINISTERED No Known Medications [...] and replaced VC 10/2018 Hospitalization History Cellulitis-[facility] 12/20/15 Hospitalization History [facility]- Abd pain 03/07/2017 [facility]- Abd pain 03/14/2017 Hospitalization History [facility]- No bowel movement, rash 04/13/2017 [facility] History [facility]- Abd pain r/t kidney surgery on 04/10/17 04/17/2017 Hospitalization History [facility]- Abd pain r/t kidney surgery on 04/10/17 04/18/2017 Hospitalization History [facility]- Lower abd pain 04/30/2017 Hospitalization History [facility]- Cannot urinate 05/30/2017 Hospitalization History [facility]- Pancreatitis Sx 06/29/2017 Hospitalization History [facility]- Stomach pain 07/22/2017 Hospitalization History [facility]- Left side pain 08/12/2017 Hospitalization History [facility]- Incision site infection 08/30/2017 Hospitalization History [facility]- Post Op Seroma/Hematoma Left Abdomen. Discharged 09/04/17- Dr Daniel 09/02/2017 Hospitalization History [facility]- Right shoulder and back pain 10/22/2017 Hospitalization History [facility]- Shoulder/Back pain 11/11/2017 Hospitalization History [facility]- Right shoulder blade pain 12/04/2017 Hospitalization History [facility]- C-Diff 12/13/2017 Hospitalization History C diff et MRSA 12/27/2017 Hospitalization History Bowel abduction [facility] 10/2018
--- OUTSIDE RECORDS SUMMARY | 2019-01-07 11:21 | XMS REPORT ---
Author Author EMIL ROLON [facility] Address [address] [place] [address] Care Team Providers Care Stone Rigger Name Role Phone ROLONEMIL Unavailable PROBLEMS Type Condition ICD9-CM Code AEC67-EU Code Onset Dates Condition Status SNOMED Code Problem History of renal cell carcinoma Z85.528 Active 443559382 Problem Right carpal tunnel syndrome G56.01 Active 453545713222933 Problem Nodule of left lung R91.1 Active 138484449 Problem Moderate episode of recurrent major depressive disorder F33.1 Active 445961603 Problem Restless leg syndrome G25.81 Active 84795276 Problem Morbid (severe) obesity due to excess calories E66.01 Active 820610659 Problem Chronic tension-type headache, intractable G44.221 Active 405126321 Problem Asthma J45.909 Active 679767594 Problem Chronic pancreatitis K86.1 Active 453378774 Problem Atelectasis J98.11 Active 36225908 Problem Polydipsia R63.1 Active 87377416 Problem Chronic post-traumatic stress disorder (PTSD) F43.12 Active 997498791 Problem Trichotillomania F63.3 Active 87650865 Problem Chronic fatigue R53.82 Active 54142322 Problem Intestinal malabsorption, unspecified K90.9 Active 00998587 Problem Primary osteoarthritis of right knee M17.11 Active 966533161001767 Problem Social phobia, generalized F40.11 Active 88964211 Problem Hirsuties L68.0 Active 961102992 Problem Social phobia, unspecified F40.10 Active 94272730 Problem Hyperlipidemia, mixed E78.2 Active 614002976 Problem FH: polycystic ovary Z84.2 Active 383442023 Problem Obesities, morbid E66.01 Active 743425871 Problem Menopausal symptoms N95.1 Active 59207304 Problem Conflict between patient and family Z63.9 Active 77628041 Problem Morbid obesity E66.01 Active 807096287 ALLERGIES No Information ENCOUNTERS Encounter Location Date Diagnosis [facility] [address], [place] [address] Jan, [facility] [address], [place] [address] Dec, [facility] [address], [place] [address] Nov, [facility] [address] [address] Nov, [facility] [address], [place] [address] Nov, [facility] [address], [place] [address] Nov, Other acute postprocedural pain G89.18 and Unspecified abdominal pain R10.9 [facility] [address], [place] [address] October, [facility] [address], [place] [address] October, Social phobia, generalized F40.11 ; Conflict between patient and family Z63.9 and Morbid obesity E66.01 [facility] [address], [place] [address] October, [facility] [address], [place] [address] October, [facility] [address], [place] [address] October, [facility] [address], [place] [address] October, [address] [address] October, [facility] [id number], [place] [address] October, [facility] [address] October, [facility] [address], [place] [address] October, Morbid obesity E66.01 ; Routine gynecological examination Z01.419 and Menopausal symptoms N95.1 [facility] [address], [place] [address] October, [facility] [address] [place] [address] Sep, [facility] [address] [facility] [id number] [address] Sep, [facility] [id number] [place] [address] Sep, [facility] [id number] [place] [address] Sep, [facility] [id number] [place] [address] Sep, Lower extremity edema R60.0 [facility] [address], [place] [address] Sep, [facility] [address], [place] [address] Sep, Lower extremity edema R60.0 and Morbid obesity E66.01 [facility] [address], [place] [address] Sep, [facility] [address], [place] [address] Sep, [facility] [address] [address] Aug, [facility] [address], [place] [address] Aug, Obesities, morbid E66.01 and Morbid obesity E66.01 [facility] [id number] [address] Aug, [facility] [address] [address] Jul, [facility] [address], [place] [address] Jul, [facility] [address], [place] [address] Jul, [facility] [id number] [place] [address] Jul, Numbness of right hand R20.0 [facility] [id number] [place] [address] Jul, [facility] [id number] [place] [address] Jul, Numbness of right hand R20.0 [facility] [address], [place] [address] Jul, [facility] [address], [place] [address] Jul, [facility] [address], [place] [address] Jul, Right-sided thoracic back pain M54.6 [facility] [address], [place] [address] Jul, [facility] [address], [place] [address] Jul, [facility] [address], [place] [address] Jul, [facility] [address], [place] [address] Jul, [facility] [address], [place] [address] Jun, [facility] [id number] [place] [address] Jun, Acute pain of right shoulder M25.511 ; Numbness of right hand R20.0 and Trapezius muscle spasm M62.838 [facility] [id number] [place] [address] Jun, [facility] [address] [address] Jun, [place] [id number] [place] [address] Jun, Cough R05 ; BMI 50.0-59.9, adult Z68.43 and Morbid obesity E66.01 [facility] [id number] [place] [address] Jun, [place] [address] [address] Jun, [facility] [id number] [place] [address] Jun, BMI 45.0-49.9, adult Z68.42 and Acute non-recurrent maxillary sinusitis J01.00 [facility] [id number] [place] [address] 09 Jun, 2018 Acute sinusitis J01.90 ; Dysuria R30.0 and BMI 45.0-49.9, adult Z68.42 [facility] [id number] [place] [address] Jun, [place] [id number] [place] [address] Jun, [facility] [id number] [place] [address] May, [facility] [id number] [place] [address] May, [place] [id number] [place] [address] May, [place] [address] [address] May, [facility] [id number] [place] [address] May, [place] [address] [address] Apr, Generalized social phobia F40.11 ; Trichotillomania F63.3 ; Chronic post-traumatic stress disorder (PTSD) F43.12 and BMI 45.0-49.9, adult Z68.42 [place] [address] [address] Apr, [place] [address] [address] Apr, Chronic tension-type headache, intractable G44.221 [place] [id number] [place] [address] Apr, [facility] [address] [address] Mar, [facility] [id number] [place] [address] Mar, BMI 45.0-49.9, adult Z68.42 and Pimples R23.8 [place] [facility] [id number] [place] [address] Mar, [place] [address] [address] Mar, [place] [id number] [place] [address] Mar, Decreased urination R34 ; Chronic fatigue R53.82 ; Peripheral edema R60.9 ; Diarrhea, unspecified type R19.7 ; Non-intractable vomiting with nausea, unspecified vomiting type R11.2 ; BMI 45.0-49.9, adult Z68.42 and Chronic post-traumatic stress disorder (PTSD) F43.12 [place] [id number] [place] [address] Mar, Intestinal malabsorption, unspecified K90.9 ; Diarrhea, unspecified R19.7 ; Urinary urgency R39.15 ; Rectal bleeding K62.5 and Decreased urine output R34 [place] [id number] [place] [address] Mar, Decreased urine output R34 [place] [id number] [place] [address] Mar, Rectal bleeding K62.5 [place] [id number] [place] [address] Mar, Rectal bleeding K62.5 [place] [address] [address] Mar, Urinary urgency R39.15 [place] [id number] [place] [address] Mar, Urinary urgency R39.15 [place] [id number] [place] [address] Mar, Primary osteoarthritis of right knee M17.11 and BMI 45.0-49.9, adult Z68.42 [facility] [id number] [place] [address] Mar, [facility] [id number] [place] [address] Feb, Left upper arm pain M79.622 [facility] [id number] [place] [address] Feb, [place] [id number] [place] [address] Jan, Acute pain of right knee M25.561 ; Right upper quadrant abdominal pain R10.11 and BMI 45.0-49.9, adult Z68.42 [facility] [id number] [place] [address] Jan, [facility] [id number] [place] [address] Jan, [facility] [id number] [place] [address] Dec, [facility] [id number] [place] [address] Dec, Intestinal malabsorption, unspecified K90.9 and Diarrhea, unspecified R19.7 [place] [id number] [place] [address] Dec, [facility] [id number] [place] [address] Dec, Strep throat J02.0 ; Intestinal malabsorption, unspecified K90.9 ; Diarrhea, unspecified R19.7 ; Postoperative seroma involving digestive system after non-digestive system procedure K91.873 ; Hyperlipidemia, mixed E78.2 and BMI 45.0-49.9, adult Z68.42 [facility] [id number] [place] [address] Dec, [facility] [id number] [place] [address] Dec, Nausea R11.0 [facility] [id number] [place] [address] Dec, [facility] [id number] [place] [address] Dec, Sore throat J02.9 ; Strep throat J02.0 and BMI 45.0-49.9, adult Z68.42 [facility] [id number] [place] [address] Dec, [place] [address], [place] [address] Dec, [facility] [address], [place] [address] Dec, [facility] [address], [place] [address] Dec, [facility] [address] [place] [address] Dec, [facility] [address], [place] [address] Dec, [facility] [address] [place] [address] Dec, [facility] [id number] [place] [address] Dec, [facility] [address] [place] [address] Dec, Clostridium difficile colitis A04.72 ; Intractable vomiting with nausea, unspecified vomiting type R11.2 and BMI 45.0-49.9, adult Z68.42 [facility] [address], [place] [address] Dec, [facility] [address], [place] [address] Nov, [facility] [address], [place] [address] Nov, [facility] [address], [place] [address] Nov, [facility] [address], [place] [address] Nov, [facility] [id number], [place] [address] Nov, [facility] [address] [place] [address] Nov, Hyperlipidemia, mixed E78.2 [facility] [address] [place] [address] Nov, Acute suppurative otitis media of right ear without spontaneous rupture of tympanic membrane, recurrence not specified H66.001 and BMI 45.0-49.9, adult Z68.42 [place] [address] [place] [address] Nov, Hyperlipidemia, mixed E78.2 [place] [address] [place] [address] Nov, [place] [address] [place] [address] Nov, [place] [address] [place] [address] Nov, Nodule of left lung R91.1 [place] [address] [place] [address] Nov, Medicare annual wellness visit, initial Z00.00 [...] adult Z68.42 and Encounter for immunization Z23 [place] [address] [place] [address] October, [place] [id number] [place] [address] October, Nodule of left lung R91.1 [place] [address] [place] [address] October, Nodule of left lung R91.1 [place] [address] [place] [address] October, Recurrent major depressive disorder, in partial remission F33.41 ; Restless leg syndrome G25.81 ; Generalized social phobia F40.11 ; Chronic post-traumatic stress disorder (PTSD) F43.12 ; BMI 45.0-49.9, adult Z68.42 and Trichotillomania F63.3 [place] [address] [address] October, [place] [address] [place] [address] Sep, Chronic fatigue R53.82 and BMI 45.0-49.9, adult Z68.42 [place] [address] [place] [address] Aug, [place] [address] [address] Jul, Restless leg syndrome G25.81 and B12 deficiency E53.8 [place] [address] [address] Jul, [place] [address] [place] [address] Jul, [place] [address] [place] [address] Jun, [place] [address] [place] [address] Jun, Fatigue, unspecified type R53.83 ; History of renal cell carcinoma Z85.528 ; Chronic pancreatitis K86.1 ; Restless leg syndrome G25.81 ; Dark urine R82.99 and BMI 45.0-49.9, adult Z68.42 [place] [address] [place] [address] Jun, [place] [address], [place] [address] Jun, [facility] [address], [place] [address] Jun, [facility] [address], [place] [address] Jun, [facility] [address], [place] [address] May, Chronic post-traumatic stress disorder (PTSD) F43.12 ; Moderate episode of recurrent major depressive disorder F33.1 ; Trichotillomania F63.3 and Generalized social phobia F40.11 [place] [address], [place] [address] May, [place] [address], [place] [address] May, Chronic post-traumatic stress disorder (PTSD) F43.12 ; Moderate episode of recurrent major depressive disorder F33.1 ; Trichotillomania F63.3 and Generalized social phobia F40.11 [place] [id number], [place] [address] May, Hyperlipidemia, mixed E78.2 ; Morbid (severe) obesity due to excess calories E66.01 ; Chronic post-traumatic stress disorder (PTSD) F43.12 ; Moderate episode of recurrent major depressive disorder F33.1 ; Trichotillomania F63.3 and Generalized social phobia F40.11 [facility] [id number], [place] [address] Apr, [facility] [id number], [place] [address] Apr, Hyperlipidemia, mixed E78.2 ; Morbid (severe) obesity due to excess calories E66.01 ; Chronic post-traumatic stress disorder (PTSD) F43.12 ; Moderate episode of recurrent major depressive disorder F33.1 ; Trichotillomania F63.3 and Generalized social phobia F40.11 [facility] [address] [place] [address] Apr, Trichotillomania F63.3 ; Generalized social phobia F40.11 ; Chronic post-traumatic stress disorder (PTSD) F43.12 and Moderate episode of recurrent major depressive disorder F33.1 [facility] [id number] [place] [address] Apr, [facility] [id number] [place] [address] Apr, [facility] [id number] [place] [address] Mar, Moderate episode of recurrent major depressive disorder F33.1 ; Trichotillomania F63.3 ; Chronic post-traumatic stress disorder (PTSD) F43.12 ; Generalized social phobia F40.11 and Restless leg syndrome G25.81 [place] [id number] [place] [address] Mar, [place] [id number] [place] [address] Mar, [place] [id number] [place] [address] Feb, Left kidney mass N28.89 [place] [id number] [place] [address] Jan, [facility] [id number] [place] [address] Dec, Polydipsia R63.1 ; Chronic pancreatitis K86.1 and Fatigue, unspecified type R53.83 [place] [address] [place] [address] Nov, [place] [id number] [place] [address] Nov, [facility] [address] [address] Nov, Headache around the eyes R51 [facility] [id number] [place] [address] Nov, [facility] [id number] [place] [address] October, STD exposure Z20.2 [facility] [id number] [place] [address] October, STD exposure Z20.2 [facility] [address] [place] [address] October, Chronic post-traumatic stress disorder (PTSD) F43.12 ; Generalized social phobia F40.11 ; Trichotillomania F63.3 and Restless leg syndrome G25.81 [facility] [id number] [place] [address] October, [facility] [id number] [place] [address] Sep, [facility] [id number] [place] [address] Aug, [facility] [id number] [place] [address] Aug, [facility] [id number] [place] [phone] Aug, Neck mass R22.1 [facility] [id number] [place] [id number] Aug, Atelectasis J98.11 [facility] [id number] [place] [phone] 28 Jul, 2016 Hyperlipidemia, mixed E78.2 ; Atypical pneumonia J18.9 and Neck mass R22.1 [facility] [id number] [place] [phone] 15 Jul, 2016 Hemoptysis R04.2 [place] [id number] [place] [phone] 08 Jul, 2016 Acute non-recurrent pansinusitis J01.40 ; Hemoptysis R04.2 ; Polydipsia R63.1 and Malaise R53.81 [facility] [place] [id number] [place] [phone] May, Other viral agents as the cause of diseases classified elsewhere B97.89 and Acute upper respiratory infection, unspecified J06.9 [facility] [place] [id number] [place] [phone] Mar, Nausea R11.0 [facility] [address] [address] Dec, Hives L50.[address] [address] Dec, [facility] [place] [id number] [place] [phone] Dec, Cutaneous abscess of limb, unspecified L02.419 ; Cellulitis of unspecified part of limb L03.119 ; Encounter for incision and drainage procedure Z01.89 and Encounter for recheck of abscess following incision and drainage Z09 [facility] [place] [id number] [place] [phone] Dec, Abscess of leg, right L02.415 [place] [address] [id number] [place] [phone] Dec, Cellulitis of unspecified part of limb L03.119 and Cutaneous abscess of limb, unspecified L02.419 [place] [address] [phone] Dec, [place] [address] [place] [id number] [place] [phone] Dec, [facility] [place] [address] [address] Aug, [facility] [id number] [place] [phone] Aug, [facility] [id number] [place] [phone] 04 Jul, 2015 Pain in unspecified wrist M25.539 and Back pain, thoracic M54.6 [facility] [id number] [place] [phone] Jun, Strain of right wrist, initial encounter S66.911[address] [place] [address] [address] Jun, Chronic pancreatitis, unspecified pancreatitis type K86.1 ; Hirsuties L68.0 ; Morbid (severe) obesity due to excess calories E66.01 ; Chronic pancreatitis K86.1 and Asthma J45.909 [place] [address] [address] [address] May, [place] [address] [address] May, Hyperlipidemia, mixed E78.2 and Muscle spasm of back M62.830 [place] [address] [address] [place] [id number] [place] [address] 30 Apr, 2015 [place] [address] [address] [place] [id number] [place] [address] Apr, Torticollis M43.6 [place] [address] [address] [place] [id number] [place] [address] 09 Apr, 2015 Right-sided thoracic back pain M54.6 [place] [address] [address] 15 Mar, 2015 Rash R21 [place] [address] [address] [place] [id number] [place] [address] 06 Mar, 2015 [place] [address] [address] Jan, [facility] [id number] [address] Dec, [facility] [address] [place] [id number] [place] [address] Dec, Urinary frequency 788.41 and Nocturia more than twice per night 788.43 [facility] [address] [place] [id number] [place] [address] Nov, [facility] [address] [place] [id number] [place] [address] Nov, [facility] [address] [place] [id number] [place] [address] Nov, Abdominal pain 789.00 [facility] [address] [place] [id number] [place] [address] October, TDAP DX V06.1 [facility] [address] [place] [id number] [place] [address] October, [facility] [address] [place] [id number] [place] [address] October, Disturbance of skin sensation 782.0 ; Wrist pain, right 719.43 ; Hyperlipidemia 272.4 and Skin lesion of face 709.9 [facility] [id number] [place] [address] Sep, [facility] [address] [place] [id number] [place] [address] Sep, [facility] [address] [address] Aug, [facility] [address] [place] [id number] [place] [address] Aug, [facility] [address] [address] Aug, [facility] [id number] [address] 23 Aug, 2014 [facility] [place] [facility] [address] [id number] [place] [address] 16 Aug, 2014 [facility] [place] [facility] [address] [id number] [place] [address] 16 Aug, 2014 [facility] [place] [facility] [address] [id number] [place] [address] 14 Aug, 2014 [facility] [place] [facility] [address] [id number] [place] [address] 14 Aug, 2014 [facility] [place] [facility] [address] [id number] [place] [address] 11 Aug, 2014 [facility] [place] [facility] [address] [id number] [place] [address] 11 Aug, 2014 [facility] [place] [facility] [address] [id number] [place] [address] 04 Aug, 2014 [facility] [place] [facility] [address] [id number] [place] [address] 04 Aug, 2014 [facility] [place] [facility] [address] [id number] [place] [address] 03 Aug, 2014 [facility] [place] [facility] [address] [id number] [place] [address] Aug, [facility] [place] [facility] [address] [id number] [place] [address] 23 Jul, 2014 [facility] [place] [facility] [address] [id number] [place] [address] 23 Jul, 2014 [facility] [place] [facility] [address] [id number] [place] [address] 13 Jul, 2014 [facility] [place] [facility] [address] [id number] [place] [address] 13 Jul, 2014 [facility] [place] [facility] [address] [id number] [place] [address] Jul, [facility] [place] [facility] [address] [id number] [place] [address] Jul, [facility] [place] [facility] [address] [id number] [place] [address] Jun, [facility] [place] [facility] [address] [facility] [id number] [place] [address] Jun, [facility] [place] [facility] [address] [id number] [place] [address] Jun, [facility] [place] [facility] [address] [id number] [place] [address] Jun, [facility] [place] [facility] [address] [id number] [place] [address] Jun, [facility] [place] [facility] [address] [id number] [place] [address] Jun, [facility] [place] [facility] [address] [id number] [place] [address] Jun, [facility] [place] [facility] [address] [id number] [place] [address] Jun, [facility] [place] [facility] [address] [facility] [id number] [place] [address] May, [facility] [place] [facility] [address] [id number], [place] [address] May, [facility] [place] [facility] [address] [id number], [place] [address] 18 May, 2014 [facility] [place] [facility] [address] [id number] [place] [address] May, [facility] [place] [facility] [address] [facility] [id number] [place] [address] 15 May, 2014 [facility] [place] [facility] [address] [facility] [id number], [place] [address] 15 May, 2014 [facility] [place] [facility] [address] [id number] [place] [address] May, [facility] [address] [id number] [place] [address] May, [facility] [place] [facility] [address] [id number] [place] [address] May, [facility] [place] [facility] [address] [id number] [place] [address] May, [facility] [place] [facility] [address] [id number] [place] [address] May, [facility] [place] [facility] [address] [id number] [place] [address] May, [facility] [place] [facility] [address] [id number] [place] [address] Apr, [facility] [place] [facility] [address] [id number] [place] [address] Apr, [facility] [place] [facility] [address] [id number] [place] [address] Apr, [facility] [place] [facility] [address] [id number] [place] [address] Apr, [facility] [place] [facility] [address] [id number] [place] [address] Apr, [facility] [place] [facility] [address] [id number] [place] [address] Apr, [facility] [place] [facility] [address] [id number] [place] [address] Apr, [facility] [place] [facility] [address] [id number] [place] [address] Apr, [facility] [place] [facility] [address] [id number] [place] [address] Apr, [facility] [place] [facility] [address] [id number] [place] [address] Apr, [facility] [place] [facility] [address] [id number] [place] [address] Apr, [facility] [place] [facility] [address] [id number] [place] [address] Apr, [facility] [place] [facility] [address] [id number] [place] [address] Mar, [facility] [place] [facility] [address] [id number] [place] [address] Mar, [facility] [place] [facility] [address] [id number] [place] [address] Mar, [facility] [place] [facility] [address] [id number] [place] [address] Mar, [facility] [place] [facility] [address] [id number] [place] [address] Feb, [facility] [place] [facility] [address] [id number] [place] [address] Feb, [facility] [place] [facility] [address] [id number] [place] [address] 05 Feb, 2014 [facility] [place] [facility] [address] [id number] [place] [address] 05 Feb, 2014 [facility] [place] [facility] [address] [id number] [place] [address] Feb, [facility] [place] [facility] [address] [id number], [place] [address] Feb, 2013 [facility] [place] [facility] [address] [id number] [place] [address] Jan, [facility] [place] [facility] [address] [id number] [place] [address] Jan, [facility] [place] [facility] [address] [id number] [place] [address] Jan, [facility] [place] [facility] [address] [id number], [place] [address] Jan, [facility] [place] [facility] [address] [id number] [place] [address] Jan, [facility] [place] [facility] [address] [id number] [place] [address] Jan, [facility] [place] [facility] [address] [id number] [place] [address] Jan, [facility] [place] [facility] [address] [id number] [place] [address] Jan, [facility] [place] [facility] [address] [id number] [place] [address] Jan, [facility] [place] [facility] [address] [id number] [place] [address] Jan, [facility] [place] [facility] [address] [id number] [place] [address] Jan, [facility] [place] [facility] [address] [id number] [place] [address] Jan, [facility] [place] [facility] [address] [id number] [place] [address] Jan, [facility] [place] [facility] [address] [id number] [place] [address] Jan, [facility] [place] [facility] [address] [id number] [place] [address] Dec, [facility] [place] [facility] [address] [id number] [place] [address] Dec, [facility] [place] [facility] [address] [id number] [place] [address] Dec, [facility] [place] [facility] [address] [id number] [place] [address] Dec, [facility] [place] [facility] [address] [id number] [place] [address] Nov, [facility] [place] [facility] [address] [id number] [place] [address] Nov, [facility] [place] [facility] [address] [id number] [place] [address] Nov, [facility] [place] [facility] [address] [id number] [place] [address] Nov, [facility] [place] [facility] [address] [id number] [place] [address] Nov, [facility] [place] [facility] [address] [id number] [place] [address] October, [facility] [place] [facility] [address] [id number] [place] [address] October, [facility] [place] [facility] [address] [id number] [place] [address] October, [facility] [place] [facility] [address] [id number] [place] [address] October, [facility] [place] [facility] [address] [id number] [place] [address] October, [facility] [place] [facility] [address] [id number] [place] [address] October, [facility] [place] [facility] [address] [id number] [place] [address] October, [facility] [place] [facility] [address] [id number] [place] [address] October, [facility] [place] [facility] [address] [id number] [place] [address] October, [facility] [place] [facility] [address] [id number] [place] [address] October, [facility] [place] [facility] [address] [id number] [place] [address] October, [facility] [place] [facility] [address] [id number] [place] [address] October, [facility] [place] [facility] [address] [id number] [place] [address] October, [facility] [place] [facility] [address] [id number] [place] [address] October, [facility] [place] [facility] [address] [id number] [place] [address] Sep, [facility] [place] [facility] [address] [id number] [place] [address] Sep, [facility] [place] [facility] [address] [id number] [place] [address] Sep, [facility] [place] [facility] [address] [id number] [place] [address] Sep, [facility] [place] [facility] [address] [id number] [place] [address] Sep, [facility] [place] [facility] [address] [id number] [place] [address] Sep, [facility] [place] [facility] [address] [id number] [place] [address] Sep, [facility] [place] [facility] [address] [id number] [place] [address] Sep, [facility] [place] [facility] [address] [id number] [place] [address] Sep, [facility] [place] [facility] [address] [id number] [place] [address] Sep, [facility] [place] [facility] [address] [id number] [place] [address] Sep, [facility] [place] [facility] [address] [id number] [place] [address] Sep, [facility] [place] [facility] [address] [id number] [place] [address] Sep, [facility] [place] [facility] [address] [id number] [place] [address] Sep, [facility] [place] [facility] [address] [id number] [place] [address] Sep, [facility] [place] [facility] [address] [id number] [place] [address] Aug, [facility] [place] [facility] [address] [id number] [place] [address] Aug, [facility] [place] [facility] [address] [id number] [place] [address] Aug, [facility] [place] [facility] [address] [id number] [place] [address] Aug, [facility] [place] [facility] [address] [id number] [place] [address] Jul, [facility] [place] [facility] [address] [id number] [place] [address] Jul, [facility] [place] [facility] [address] [id number] [place] [address] Jul, [facility] [place] [facility] [address] [id number] [place] [address] Jul, [facility] [place] [facility] [address] [id number] [place] [address] Jun, [facility] [place] [facility] [address] [id number] [place] [address] Jun, [facility] [place] [facility] [address] [id number] [place] [address] Jun, [facility] [place] [facility] [address] [id number] [place] [address] Jun, [facility] [place] [facility] [address] [id number] [place] [address] Jun, [facility] [place] [facility] [address] [id number] [place] [address] Jun, [facility] [place] [facility] [address] [id number] [place] [address] 08 Jun, 2013 [facility] [address] [id number] [place] [address] 08 Jun, 2013 [facility] [address] [id number] [place] [address] 20 May, 2013 [facility] [address] [id number] [place] [address] 20 May, 2013 [facility] [address] [id number] [place] [address] 18 May, 2013 [facility] [address] [id number] [place] [address] 18 May, 2013 [facility] [address] [id number] [place] [address] 17 May, 2013 [facility] [address] [id number] [place] [id number] 17 May, 2013 [facility] [address] [id number] [place] [address] 17 May, 2013 [facility] [address] [id number] [place] [address] 17 May, 2013 [facility] [address] [id number] [place] [address] 16 May, 2013 [facility] [address] [id number] [place] [address] 16 May, 2013 [facility] [address] [id number] [place] [address] 14 May, 2013 [facility] [address] [id number] [place] [address] 14 May, 2013 [facility] [address] [id number] [place] [address] 13 May, 2013 [facility] [address] [id number] [place] [address] May, [facility] [address] [id number] [place] [address] May, [facility] [place] [facility] [address] [id number] [place] [address] May, [facility] [place] [facility] [address] [id number] [place] [address] May, [facility] [place] [facility] [address] [id number] [place] [address] May, [facility] [place] [facility] [address] [id number] [place] [address] Apr, [facility] [place] [facility] [address] [id number] [place] [address] Apr, [facility] [place] [facility] [address] [id number] [place] [address] Apr, [facility] [place] [facility] [address] [id number] [place] [address] Apr, [facility] [place] [facility] [address] [id number] [place] [address] Aug, [facility] [place] [facility] [address] [id number] [place] [address] Aug, [facility] [place] [facility] [address] [id number] [place] [address] Aug, [facility] [place] [facility] [address] [id number] [place] [address] Aug, [facility] [place] [facility] [address] [id number] [place] [address] Jul, [facility] [place] [facility] [address] [id number] [place] [address] Jun, [facility] [place] [facility] [address] [id number] [place] [address] Jun, [facility] [place] [facility] [address] [id number] [place] [address] 16 Jun, 2012 [facility] [address] [id number] [place] [address] Jun, [facility] [address] [id number] [place] [address] May, [facility] [address] [id number] [place] [address] May, [facility] [address] [id number] [place] [address] May, [facility] [address] [id number] [place] [address] May, [facility] [address] [id number] [place] [address] May, [facility] [address] [id number] [place] [address] May, [facility] [address] [id number] [place] [address] May, [facility] [address] [id number] [place] [address] Apr, [facility] [address] [id number] [place] [address] Apr, [facility] [address] [id number] [place] [address] Apr, [facility] [address] [id number] [place] [address] Apr, [facility] [place] [facility] [address] [id number] [place] [address] Apr, [facility] [place] [facility] [address] [id number] [place] [address] Apr, [facility] [place] [facility] [address] [id number] [place] [address] Apr, [facility] [place] [facility] [address] [id number] [place] [address] Mar, [facility] [place] [facility] [address] [id number] [place] [address] Mar, [facility] [place] [facility] [address] [id number] [place] [address] Mar, [facility] [place] [facility] [address] [id number] [place] [address] Mar, [facility] [place] [facility] [address] [id number] [place] [address] Mar, [facility] [place] [facility] [address] [id number] [place] [address] Mar, [facility] [place] [facility] [address] [id number] [place] [address] Mar, [facility] [place] [facility] [address] [id number] [place] [address] Mar, [facility] [place] [facility] [address] [id number] [place] [address] Mar, [facility] [place] [facility] [address] [id number], [place] [address] Mar, [facility] [place] [facility] [address] [id number], [place] [address] Mar, [facility] [place] [facility] [address] [id number], [place] [address] Mar, [facility] [place] [facility] [address] [id number] [place] [address] Feb, [facility] [place] [facility] [address] [id number], [place] [address] Jan, [facility] [place] [facility] [address] [id number] [place] [address] Jan, [facility] [place] [facility] [address] [id number] [place] [address] Jan, [facility] [address] [id number] [place] [address] Jan, [facility] [place] [facility] [address] [id number] [place] [address] Jan, [facility] [place] [facility] [address] [id number] [place] [address] Dec, [facility] [place] [facility] [address] [id number] [place] [address] Dec, [facility] [place] [facility] [address] [id number] [place] [address] Nov, [facility] [place] [facility] [address] [id number] [place] [address] Nov, [facility] [address] [id number] [place] [address] Nov, [facility] [address] [id number] [place] [address] October, [facility] [address] [id number] [place] [address] October, [facility] [address] [id number] [place] [address] October, [facility] [address] [id number] [place] [address] October, [facility] [place] [facility] [address] [id number] [place] [address] October, [facility] [place] [facility] [address] [id number] [place] [address] October, [facility] [place] [facility] [address] [id number] [place] [address] October, [facility] [place] [facility] [address] [id number] [place] [address] Sep, [facility] [place] [facility] [address] [id number] [place] [address] 26 Sep, 2011 [facility] [place] [facility] [address] [id number] [place] [address] 26 Sep, 2011 [facility] [place] [facility] [address] [id number] [place] [address] 25 Sep, 2011 [facility] [place] [facility] [address] [id number] [place] [address] 24 Sep, 2011 [facility] [place] [facility] [address] [id number] [place] [address] 19 Sep, 2011 [facility] [place] [facility] [address] [id number] [place] [address] 17 Sep, 2011 [facility] [place] [facility] [address] [id number] [place] [address] 16 Sep, 2011 [facility] [place] [facility] [address] [id number] [place] [address] 16 Sep, 2011 [facility] [place] [facility] [address] [id number] [place] [address] 14 Sep, 2011 [facility] [place] [facility] [address] [id number] [place] [address] 13 Sep, 2011 [facility] [place] [facility] [address] [id number] [place] [address] 10 Sep, 2011 [facility] [place] [facility] [address] [id number] [place] [address] 09 Sep, 2011 [facility] [place] [facility] [address] [id number] [place] [address] 27 Aug, 2011 [facility] [place] [facility] [address] [id number] [place] [address] 12 Aug, 2011 [facility] [place] [facility] [address] [id number] [place] [address] 08 Aug, 2011 [facility] [place] [facility] [address] [id number] [place] [address] Aug, [facility] [address] [id number] [place] [address] 28 Jul, 2011 [facility] [place] [facility] [address] [id number] [place] [address] 22 Jul, 2011 [facility] [place] [facility] [address] [id number] [place] [address] 16 Jul, 2011 [facility] [place] [facility] [address] [id number] [place] [address] 15 Jul, 2011 [facility] [place] [facility] [address] [id number] [place] [address] 14 Jul, 2011 [facility] [place] [facility] [address] [id number] [place] [address] 10 Jul, 2011 [facility] [place] [facility] [id number] [address] Jun, [facility] [place] [facility] [address] [id number] [place] [address] Jun, [facility] [place] [facility] [address] [facility] [id number] [place] [address] Jun, [facility] [place] [facility] [address] [facility] [id number] [place] [address] Jun, [facility] [place] [facility] [address] [facility] [id number] [place] [address] Jun, [facility] [place] [facility] [address] [id number] [place] [address] May, [facility] [place] [facility] [address] [id number] [place] [address] May, [facility] [place] [facility] [address] [facility] [id number] [place] [address] 14 May, 2011 [facility] [place] [facility] [address] [facility] [id number] [place] [address] May, [facility] [place] [facility] [address] [id number] [place] [address] 12 May, 2011 [facility] [place] [facility] [address] [id number] [place] [address] May, [facility] [place] [facility] [address] [id number] [place] [address] May, [facility] [place] [facility] [address] [id number] [place] [address] Apr, [facility] [place] [facility] [address] [id number] [place] [address] Apr, [facility] [place] [facility] [address] [id number] [place] [address] Apr, [facility] [place] [facility] [address] [id number] [place] [address] Apr, [facility] [place] [facility] [address] [id number] [place] [address] Apr, [facility] [place] [facility] [address] [id number] [place] [address] Apr, [facility] [place] [facility] [address] [id number] [place] [address] Mar, [facility] [place] [facility] [address] [id number] [place] [address] Mar, [facility] [place] [facility] [address] [id number] [place] [address] Mar, [facility] [place] [facility] [address] [id number] [place] [address] Mar, [facility] [place] [facility] [address] [id number] [place] [address] Jan, [facility] [place] [facility] [address] [id number] [place] [address] Dec, [facility] [place] [facility] [address] [id number] [place] [address] 13 Dec, 2010 [facility] [place] [facility] [address] [id number] [place] [address] 11 Oct, 2010 [facility] [place] [facility] [address] [id number] [place] [address] 20 Sep, 2010 [facility] [place] [facility] [address] [id number] [place] [address] 14 Sep, 2010 [facility] [place] [facility] [address] [id number] [place] [address] 17 Jul, 2010 [facility] [place] [facility] [address] [id number] [place] [address] 16 Jul, 2010 [facility] [place] [facility] [address] [id number] [place] [address] 31 May, 2010 [facility] [place] [facility] [address] [id number] [place] [address] May, [facility] [place] [facility] [address] [id number] [place] [address] May, [facility] [place] [facility] [address] [id number] [place] [address] May, [facility] [place] [facility] [address] [id number] [place] [address] Apr, [facility] [place] [facility] [address] [id number] [place] [address] Apr, [facility] [place] [facility] [address] [id number] [place] [address] Apr, [facility] [place] [facility] [address] [id number] [place] [address] Apr, [facility] [place] [facility] [address] [id number] [place] [address] Apr, [facility] [place] [facility] [address] [id number] [place] [address] Mar, [facility] [place] [facility] [address] [id number] [place] [address] 14 Mar, 2010 [facility] [address] [id number] [place] [address] 13 Mar, 2010 [facility] [place] [facility] [address] [id number] [place] [address] 12 Mar, 2010 [facility] [address] [id number] [place] [address] 20 Jan, 2010 [facility] [place] [facility] [address] [id number] [place] [address] 15 Dec, 2009 [facility] [address] [id number] [place] [address] 10 Sep, 2009 [facility] [place] [facility] [address] [id number] [place] [address] 08 May, 2009 [facility] [place] [facility] [address] [facility] [id number] [place] [address] 06 May, 2009 [facility] [place] [facility] [address] [id number] [place] [address] 02 May, 2009 [facility] [place] [facility] [address] [facility] [id number] [place] [address] 17 Apr, 2009 [facility] [place] [facility] [address] [facility] [id number] [place] [address] 17 Apr, 2009 [facility] [place] [facility] [address] [id number] [place] [address] 10 Apr, 2009 [facility] [place] [facility] [address] [facility] [id number], [place] [address] 10 Apr, 2009 [facility] [place] [facility] [address] [id number] [place] [address] 09 Apr, 2009 [facility] [place] [facility] [address] [facility] [id number] [place] [address] 15 Mar, 2009 [facility] [place] [facility] [address] [id number] [place] [address] Mar, [facility] [address] [facility] [id number] [place] [address] Jul, IMMUNIZATIONS No Known Immunizations SOCIAL HISTORY Never Assessed REASON FOR VISIT PLAN OF CARE VITAL SIGNS Height 62 in 2014-08-09 Weight 248 lbs 2014-08-09 Temperature 97 degrees Fahrenheit 2014-08-09 Heart Rate 86 bpm 2014-08-09 Respiratory Rate 18 2014-08-09 Blood pressure systolic 126 mmHg 2014-08-09 Blood pressure diastolic 70 mmHg 2014-08-09 MEDICATIONS Unknown Medications RESULTS No Results PROCEDURES [...] and replaced VC 10/2018 Hospitalization History Cellulitis-[facility] 12/20/15 Hospitalization History [facility]- Abd pain 03/07/2017 Hospitalization History [facility]- Abd pain 03/14/2017 Hospitalization History [facility]- No bowel movement, rash 04/13/2017 Hospitalization History [facility]- Abd pain r/t kidney surgery on 04/10/17 04/17/2017 Hospitalization History [facility]- Abd pain r/t kidney surgery on 04/10/17 04/18/2017 Hospitalization History [facility]- Lower abd pain 04/30/2017 Hospitalization History [facility]- Cannot urinate 05/30/2017 Hospitalization History [facility]- Pancreatitis Sx 06/29/2017 Hospitalization History [facility]- Stomach pain 07/22/2017 Hospitalization History [facility]- Left side pain 08/12/2017 Hospitalization History [facility]- Incision site infection 08/30/2017 Hospitalization History [facility]- Post Op Seroma/Hematoma Left Abdomen. Discharged 09/04/17- Dr Daniel 09/02/2017 Hospitalization History [facility]- Right shoulder and back pain 10/22/2017 Hospitalization History [facility]- Shoulder/Back pain 11/11/2017 Hospitalization History [facility]- Right shoulder blade pain 12/04/2017 Hospitalization History [facility]- C-Diff 12/13/2017 Hospitalization History C diff et MRSA 12/27/2017 Hospitalization History Bowel abduction [facility] 10/2018
--- NOTE | 2019-01-07 11:26 | ED Abdominal Pain ---
General Chief Complaint: Abdominal/GI Problems Stated Complaint: SIDE PAIN;NAUSEA Source of Information: Patient Exam Limitations: No Limitations History of Present Illness Date Seen by Provider: Jan 07, 2019 Time Seen by Provider: 11:23 Initial Comments To ER with reports of left side pain and nausea. This is a chronic complaint for her no different than usual. No vomiting, normal bowel movements. No fevers no chills no dysuria. States she was recommended "pain injections" but can't take them because "my body rejects them" Timing/Duration: Constant Severity/Quality: Moderate Location: [facility]Q Radiation: No Radiation Activities at Onset: None Associated Symptoms: Denies Symptoms Allergies and Home Medications Allergies Coded Allergies: fentanyl (Verified Allergy, Unknown, 10/16/18) meperidine (Verified Allergy, Unknown, 10/16/18) penicillin G (Verified Allergy, Unknown, 10/16/18) vancomycin (Unverified Adverse Reaction, Intermediate, severe itching, 10/16/18) Home Medications Cyanocobalamin 1,000 Mcg/Ml Inj, 1,000 MCG IJ MONTHLY, (Reported) Estradiol 1 Mg Tablet, 1 MG PO HS, (Reported) Hydrocodone/Acetaminophen 1 Each Tablet, 1 EA PO Q6HR PRN for PAIN-MODERATE Prescribed by: LINDSEY MARROQUIN on 10/23/18 1307 Metoprolol Succinate 25 Mg Tab.er.24h, 25 MG PO HS, (Reported) Omeprazole 40 Mg Capsule.dr, 40 MG PO DAILY, (Reported) Ondansetron 8 Mg Tab.rapdis, 8 MG PO BID PRN for NAUSEA/VOMITING-1ST LINE, (Reported) Promethazine HCl 25 Mg Tablet, 25 MG PO Q6H PRN for NAUSEA/VOMITING Prescribed by: DEMETRIO KAY on 11/15/18 1639 Ropinirole HCl 4 Mg Tablet, 4 MG PO HS, (Reported) Sertraline HCl 50 Mg Tablet, 50 MG PO HS, (Reported) Tizanidine HCl 4 Mg Tablet, 4 MG PO TID PRN for MUSCLE SPASMS, (Reported) Patient Home Medication List Home Medication List Reviewed: Yes Review of Systems Review of Systems Constitutional: see HPI EENTM: No Symptoms Reported Respiratory: No Symptoms Reported Cardiovascular: No Symptoms Reported Gastrointestinal: See HPI, Abdominal Pain Genitourinary: No Symptoms Reported Musculoskeletal: no symptoms reported Skin: no symptoms reported Psychiatric/Neurological: No Symptoms Reported Endocrine: No Symptoms Reported Hematologic/Lymphatic: No Symptoms Reported Past Dgcnhce-Dlfcma-Xjaeol Hx Patient Social History 2nd Hand Smoke Exposure: No Recent Foreign Travel: No Contact w/Someone Who Travel: No Recent Hopitalizations: Yes (10/22/18 ABD SX) Immunizations Up To Date Tetanus Booster (TDap): Unknown PED Vaccines UTD: No Date of Pneumonia Vaccine: May 17, 2012 Date of Influenza Vaccine: Jul 03, 2012 Seasonal Allergies Seasonal Allergies: Yes (MILD) Past Medical History Surgeries: Yes (LEFT NEPHRECTOMY; INCISIONAL HERNIA REPAIR; EGD'S AND COLONOSCOPIES) Abdominal, Adenoidectomy, Appendectomy, Gallbladder, 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, Nephrectomy, Orthopedic, Tonsillectomy Respiratory: Yes Asthma Currently Using CPAP: No Currently Using BIPAP: No Cardiac: Yes Hypertension Neurological: Yes (RESTLESS LEG SYNDROME) Headaches /Migraines 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: No (HX ENDOMETRIOSIS ) 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 Sexually Transmitted Disease: No HIV/AIDS: No Genitourinary: Yes (L KIDNEY REMOVED FOR TUMOR-MALIGNANT;) UTI-Chronic Gastrointestinal: Yes Abdominal Hernia, Liver Disease/Jaundice, Pancreatitis, Polyps Musculoskeletal: Yes (COCCYX-REPAIRED, ) Chronic Back Pain Endocrine: Yes (CHRONIC PANCREATITIS; OBESITY) HEENT: No Loss of Vision: Denies Hearing Impairment: Denies Cancer: Yes Kidney Did You Recieve Any Treatments: Yes What Type of Treatment Did You: Surgical Intervention Psychosocial: Yes Anxiety, Depression Integumentary: Yes Herpes Blood Disorders: No Adverse Reaction/Blood Tranf: No (N/A) Family Medical History Cardiovascular disease 19 FATHER Completed stroke 19 FATHER Diabetes mellitus 19 FATHER Hypercholesterolemia 19 FATHER 19 MOTHER Hypertension 19 FATHER 19 MOTHER Neoplasm 19 MOTHER Psychosocial problem 19 FATHER 19 MOTHER No Pertinent Family Hx, Cancer, Diabetes, Hypertension Physical Exam Vital Signs Capillary Refill : Height/Weight/BMI Height: 5'3.00" Weight: 255lbs. 0.0oz. 115.905599tq; 47.6 BMI Method:Stated General Appearance: WD/WN, no apparent distress, obese Respiratory: normal breath sounds, no respiratory distress, no accessory muscle use Gastrointestinal: normal bowel sounds, soft, tenderness (left-sided) Extremities: normal range of motion, non-tender Neurologic/Psychiatric: alert, normal mood/affect, oriented x 3 Skin: normal color, warm/dry Exam Comments She's had a multitude of CTs and laboratory evaluation for this. Progress/Results/Core Measures Results/Orders My Orders Orders - GEORGES FINN APRN Diphenhydramine Injection (Benadryl Inje (01/07/19 11:30) Prochlorperazine Injection (Compazine In (01/07/19 11:30) Ketorolac Injection (Toradol Injection) (01/07/19 11:30) Departure Impression Primary Impression: Chronic abdominal pain Disposition: HOME, SELF-CARE Condition: Stable Departure-Patient Inst. Decision time for Depature: 11:25 Referrals: CARMEN GIBBS MD (PCP/Family) Primary Care Physician Patient Instructions: Chronic Pain, Stomach Ache and Stomach Upset Add. Discharge Instructions: 1. Follow-up with your primary care provider in 48 hours for recheck. All discharge instructions reviewed with patient and/or family. Voiced understanding. Images Torso/Trunk 1 - Tenderness GEORGES FINN APRN Jan 07, 2019 11:26
[2019-01-07] MEDS ORDERED: KETOROLAC 30 MG/ML VIAL IM ONE (11:30)
[2019-01-07] MEDS ORDERED: diphenhydrAMINE 50 MG/ML INJ (BENADRYL) IM ONE (11:30)
[2019-01-07] MEDS ORDERED: PROCHLORPERAZINE 10 MG/2ML INJ (COMPAZINE) IM ONE (11:30)
[2019-01-07 11:55] VITALS: BP 152/84
== END 2019-01-07 11:54 | disposition home or self-care (01) ==
LOC: EDUNIT# 11:01 → ER 11:03
DX: R10.32 Left lower quadrant pain (principal); G89.29 Other chronic pain; J45.909 Unspecified asthma, uncomplicated; I10 Essential (primary) hypertension; G43.909 Migraine, unspecified, not intractable, without status migrainosus; E66.9 Obesity, unspecified; K86.1 Other chronic pancreatitis; F41.9 Anxiety disorder, unspecified; F32.9 Major depressive disorder, single episode, unspecified; Z85.528 Personal history of other malignant neoplasm of kidney; Z86.010 Personal history of colon polyps; Z87.440 Personal history of urinary (tract) infections; Z88.1 Allergy status to other antibiotic agents; Z88.0 Allergy status to penicillin; Z88.5 Allergy status to narcotic agent; Z90.49 Acquired absence of other specified parts of digestive tract; Z90.710 Acquired absence of both cervix and uterus; Z90.89 Acquired absence of other organs; Z82.49 Family history of ischemic heart disease and other diseases of the circulatory system
CPT/HCPCS: 96372; 99284

== ENCOUNTER 2019-01-10 16:49 | Emergency (ER) | payer MEDICARE, MEDICAID ==
[~2019-01-10] VITALS: Ht 157.5 cm; Wt 117.9 kg
--- OUTSIDE RECORDS SUMMARY | 2019-01-10 16:56 | XMS REPORT | Encounter Summary ---
Author Author [facility] Organization [facility] Address Unknown Phone Unavailable Care Team Providers Care Transmission Maintenance Supervisor Name Role Phone Michael Sutton MD Unavailable Unavailable Mary Whittington MD PCP Jessica Valera Unavailable Magige Puente Unavailable Unavailable Mary Telles APRN Unavailable Bam Ritter MD Unavailable Radha Bo LPN Unavailable Unavailable Jose Sanchez MD Unavailable Reason for Visit * Reason Comments Medication Refill Encounter Details Care Team Description Date Type Department Randy Nunez MD [address] Ortho[facility] [place] [address] [place] [address] Medication monitoring encounter 12/29/2018 Refill [facility] [address] [place] [address] Social History Date Tobacco Use [...] to approve/ deny refill. VITAMIN B12 Order: [id number] Status: Final result Visible to patient: Yes (MyChart) Next appt: 019 at 10:30 AM in Radiology ([facility] Draw Chair-[place]) Dx: B12 deficiency Ref Range & Units 09/02/17 1040 06/03/17 1128 Vitamin B12 180 - 914 PG/ML 495 185 Specimen Collected: 09/02/17 10:40 documented in this encounter Plan of Treatment Not on filedocumented as of this encounter Visit Diagnoses Diagnosis Medication monitoring encounter Encounter for therapeutic drug monitoring documented in this encounter
--- OUTSIDE RECORDS SUMMARY | 2019-01-10 16:56 | XMS REPORT | Clinical Summary ---
Author Author [facility] Organization [facility] Address Unknown Phone Unavailable Care Team Providers Care Data Entry Supervisor Name Role Phone Michael Sutton MD [...] you expected, contact Release of Information in [facility] Information Management department at [phone] for further assistan ce in locating additional records.[facility] Allergies Comments Active Allergy Reactions Severity [...] Overview: Added automatically from request for surgery [id number] Intractable vomiting with nausea 01/14/2018 Overview: Added automatically from request for surgery [id number] Left renal mass 04/10/2017 Renal mass 03/21/2017 Overview: Added automatically from request for surgery [id number] 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 06/24/2013 Overview: S/P [place], BSO 11/27 [...] Comments Vital Sign 115/86 08/22/2018 8:50 AM FUELS SALES REPRESENTATIVE Blood Pressure 89 08/22/2018 8:54 AM FUELS SALES REPRESENTATIVE Pulse 36.8 C (98.2 F) 08/22/2018 8:30 AM FUELS SALES REPRESENTATIVE Temperature 18 05/19/2018 1:06 PM FUELS SALES REPRESENTATIVE Respiratory Rate 96% 08/22/2018 8:53 AM FUELS SALES REPRESENTATIVE Oxygen Saturation - - Inhaled Oxygen Concentration 122.5 kg (270 lb) 08/22/2018 7:00 AM FUELS SALES REPRESENTATIVE Weight 157.5 cm (5' 2") 08/22/2018 7:00 AM FUELS SALES REPRESENTATIVE Height 49.38 08/22/2018 7:00 AM FUELS SALES REPRESENTATIVE Body Mass Index Plan of Treatment Health [...] Present B AETNA MEDICAID AETNA xxxxxxxxxxx 2018-P [facility] Advance Directives 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 necessary based on Dx
--- OUTSIDE RECORDS SUMMARY | 2019-01-10 16:57 | XMS REPORT | Encounter Summary ---
Author Author [facility] Organization [facility] Address Unknown Phone Unavailable Care Team Providers Care Web Services Professional Name Role Phone Michael Sutton MD Unavailable Unavailable Mary Whittington MD PCP Jessica Valera Unavailable Maggie Puente Unavailable Unavailable Mary Telles APRN Unavailable Bam Ritter MD Unavailable Radha Bo LPN Unavailable Unavailable Jose Sanchez MD Unavailable Reason for Visit * Reason Comments Other Encounter Details Care Team Description Date Type Department Jessica Valera ARNP [address] [facility] Ortho/Med [place] [address] [place] [address] Other 10/14/[address] [facility] [address] [place] [address] Social History Date Tobacco Use [...] is currently admitted to the hospital at [facility] in [place], [place]. States "they saw signs of a [...]
--- OUTSIDE RECORDS SUMMARY | 2019-01-10 16:57 | XMS REPORT | Encounter Summary ---
Author Author [facility] Organization [facility] Address Unknown Phone Unavailable Care Team Providers Care Editing Intern Name Role Phone Michael Sutton MD Unavailable Unavailable Mary Whittington MD PCP Jessica Valera Unavailable Maggie Puente Unavailable Unavailable Mary Telles APRN Unavailable Bam Ritter MD Unavailable Radha Bo LPN Unavailable Unavailable Jose Sanchez MD Unavailable Reason for Visit * Reason Comments Referral Encounter Details Care Team Description Date Type Department Abel Poe MD [address] [place] [address] [phone] Referral 09/25/2018 Telephone [facility] [address] [address] Social History Date Tobacco Use Types Packs/Day [...] name and will let her physician in [place] know. documented in this encounter Plan of Treatment Not on filedocumented as of this encounter Visit Diagnoses Not on filedocumented in this encounter
--- OUTSIDE RECORDS SUMMARY | 2019-01-10 16:58 | XMS REPORT | Encounter Summary ---
Author Author [facility] Organization [facility] Address Unknown Phone Unavailable Care Team Providers Care Guidance Secretary Name Role Phone Michael Sutton MD Unavailable Unavailable Mary Whittington MD PCP Jessica Valera Unavailable Maggie Puente Unavailable Unavailable Mary Telles APRN Unavailable Bam Ritter MD Unavailable Radha Bo LPN Unavailable Unavailable Jose Sanchez MD Unavailable Reason for Visit * Reason Comments Medication Refill Encounter Details Care Team Description Date Type Department Jessica Valera ARNP [address] Ortho[facility]Med [place] [address] [place] [address] Chronic nausea; Chronic vomiting 09/09/2018 Refill [facility] [address] [place] [address] Social History Date Tobacco Use [...]
--- OUTSIDE RECORDS SUMMARY | 2019-01-10 16:59 | XMS REPORT | Encounter Summary ---
Author Author [facility] Organization [facility] Address Unknown Phone Unavailable Care Team Providers Care Corporate Development Analyst Name Role Phone Michael Sutton MD Unavailable Unavailable Mary Whittington MD PCP Jessica Valera Unavailable Maggie Puente Unavailable Unavailable Mary Telles APRN Unavailable Bam Ritter MD Unavailable Radha Bo LPN Unavailable Unavailable Jose Sanchez MD Unavailable Encounter Details Care Team Description Date Type Department Melina Vargas Diarrhea, unspecified type 08/29/2018 Orders Only [facility] [address] [place] [address] Social History Date Tobacco Use [...]
--- OUTSIDE RECORDS SUMMARY | 2019-01-10 17:00 | XMS REPORT | Encounter Summary ---
Author Author [facility] Organization [facility] Address Unknown Phone Unavailable Care Team Providers Care Insulation Worker Interior Surface Name Role Phone Michael Sutton MD Unavailable Unavailable Mary Whittington MD PCP Jessica Valera Unavailable Maggie Puenet Unavailable Unavailable Mary Telles APRN Unavailable Bam Ritter MD Unavailable Radha Bo LPN Unavailable Unavailable Jose Sanchez MD Unavailable Reason for Visit * Reason Comments Medication Refill Encounter Details Care Team Description Date Type Department Randy Nunez MD [address] Ortho[facility]Med Pavilion [address] [place] [address] Medication monitoring encounter 08/18/2018 Refill [facility] [address] [place] [address] Social History Date Tobacco Use [...]
--- OUTSIDE RECORDS SUMMARY | 2019-01-10 17:00 | XMS REPORT | Encounter Summary ---
Author Author [facility] Organization [facility] Address Unknown Phone Unavailable Care Team Providers Care Surface Mount Technology Operator Name Role Phone Michael Sutton MD Unavailable Unavailable Mary Whittington MD PCP Jessica Valera Unavailable Maggie Puente Unavailable Unavailable Mary Telles NATIONAL OPELINT ANALYST Unavailable Bam Ritter MD Unavailable Radha [...] Date Type Department Hal Sparks MD [address] Ortho[facility]Med [place] [address] [place] [address] ESOPHAGOGASTRODUODENOSCOPY WITH ENDOSCOPIC ULTRASOUND EXAMINATION - FLEXIBLE 08/22/2018 Surgery [facility] [address] [place] [address] Social History Date Tobacco Use [...] Comments Vital Sign 115/86 08/22/2018 8:50 AM ADMITTING CLERK Blood Pressure 89 08/22/2018 8:54 AM ADMITTING CLERK Pulse 36.8 C (98.2 F) 08/22/2018 8:30 AM ADMITTING CLERK Temperature - - Respiratory Rate 96% 08/22/2018 8:53 AM ADMITTING CLERK Oxygen Saturation - - Inhaled Oxygen Concentration 122.5 kg (270 lb) 08/22/2018 7:00 AM ADMITTING CLERK Weight 157.5 cm (5' 2") 08/22/2018 7:00 AM ADMITTING CLERK Height 49.38 08/22/2018 7:00 AM ADMITTING CLERK Body Mass Index documented in this encounter [...] Mary Lechuga RN - 08/22/2018 8:46 AM ADMITTING CLERK EGD/Upper EUS/ERCP/Antegrade Enteroscopy Post Upper Endoscopy [...] After 5:00 pm, holidays or weekends call [phone] a nd ask for the GI Doctor building performance consultant. TTING CLERK documented in this encounter Medications at [...] Joel Cantu MD - 08/22/2018 8:12 AM ADMITTING CLERK Pre Procedure History and Physical/Sedation Plan [...] Relevant labs reviewed Joel Cantu MD Pager TTING CLERK documented in this encounter Plan of Treatment Not on filedocumented as of this encounter Procedures Comments Procedure Name Priority Date/Time Associated Diagnosis ESOPHAGOGASTRODUODENOSCOP 08/22/2018 Chronic pancreatitis, Y WITH ENDOSCOPIC 8:15 AM ADMITTING CLERK unspecified pancreatitis ULTRASOUND EXAMINATION - type [...] () ENDOSCOPIC ULTRASOUND 08/22/2018 REPORT 7:47 AM ADMITTING CLERK documented in this encounter Results * ENDOSCOPIC ULTRASOUND REPORT (08/22/2018 7:47 AM ADMITTING CLERK) Provation Patient Name: Regulo WILKS OTHER Report Procedure Date: 08/22/2018 7:47 RESULTS AM CSN: [id number] Date of : 1985 Gender: Female Attending Physician: Hal Sparks MD Procedure: Upper EUS Indications: Epigastric abdominal pain, Family h/o chronic pancreatitis, pancreas divisum Providers: Hal Sparks MD (Doctor), Lorenza Powers RN (Nurse), Ana Fuentes (Green Building Architect) Referring Physician: Randy Viveros MD Medications: Monitored [...] 55 seconds Procedure Code(s): --- Professional --- 81467, Esophagogastroduodenoscopy, flexible, transoral; with endoscopic ultrasound examination limited to the esophagus, stomach or duodenum, and adjacent structures CPT copyright 2017 [employer]. All rights reserved. The codes documented in this report are preliminary and upon medical coder review may be revised to meet [...] Medication Order MAR Action 08/22/2018 7:26 AM ADMITTING CLERK 1,000 mL sodium chloride 0.9 % infusion Given - New 1,000 mL, Intravenous, CONTINUOUS, Bag Starting Sat08/22/18 at 0730, Until Sat08/22/18 at 1121, Pre-Op documented in this encounter
--- OUTSIDE RECORDS SUMMARY | 2019-01-10 17:00 | XMS REPORT | Encounter Summary ---
Author Author [facility] Organization [facility] Address Unknown Phone Unavailable Care Team Providers Care Conveyancer Name Role Phone Michael Sutton MD Unavailable Unavailable Mary Whittington MD PCP Jessica Valera Unavailable Maggie Puente Unavailable Unavailable Mary Telles SAND SHOVELER Unavailable Bam Ritter MD Unavailable Radha Bo LPN Unavailable Unavailable Jose Sanchez MD Unavailable Reason for Visit * Auth/Cert Referred By Contact Referred To Contact Status Reason Specialty Diagnoses / Procedures Diagnoses Chronic pancreatitis, unspecified pancreatitis type (HCC) Nausea Generalized abdominal pain Chronic pancreatitis, unspecified pancreatitis type (HCC) [K86.1] Nausea [R11.0] Generalized abdominal pain [R10.84] P rocedures CO EGD TRANSORAL BIOPSY SINGLE/MULTIPLE CO EDG US EXAM SURGICAL ALTER STOM DUODENUM/JEJUNUM ESOPHAGOGASTRODUOD ENOSCOPY WITH BIOPSY - FLEXIBLE ESOPHAGOGASTRODUOD ENOSCOPY WITH ENDOSCOPIC ULTRASOUND EXAMINATION - FLEXIBLE Encounter Details Care Team Description Date Type Department Hal Sparks MD [address] Ortho/Med Pavilion Lvl [address] [place] [address] Chronic pancreatitis, unspecified pancreatitis type (HCC) 08/22/2018 [facility] [address] [place] [address] Social History Date Tobacco Use [...] Comments Vital Sign 115/86 08/22/2018 8:50 AM ESTIMATOR JEWELRY Blood Pressure 89 08/22/2018 8:54 AM ESTIMATOR JEWELRY Pulse 36.8 C (98.2 F) 08/22/2018 8:30 AM ESTIMATOR JEWELRY Temperature - - Respiratory Rate 96% 08/22/2018 8:53 AM ESTIMATOR JEWELRY Oxygen Saturation - - Inhaled Oxygen Concentration 122.5 kg (270 lb) 08/22/2018 7:00 AM ESTIMATOR JEWELRY Weight 157.5 cm (5' 2") 08/22/2018 7:00 AM ESTIMATOR JEWELRY Height 49.38 08/22/2018 7:00 AM ESTIMATOR JEWELRY Body Mass Index documented in this encounter [...] Mary Lechuga RN - 08/22/2018 8:46 AM ESTIMATOR JEWELRY EGD/Upper EUS/ERCP/Antegrade Enteroscopy Post Upper Endoscopy Instructions [...] or concerns after your procedure please call [phone] M-F 8am-5:00 pm. After 5:00 pm, holidays or weekends call [phone] a nd ask for the GI Doctor cleaning validation consultant. MATOR JEWELRY documented in this encounter Medications at Time [...] Joel Cantu MD - 08/22/2018 8:12 AM ESTIMATOR JEWELRY Pre Procedure History and Physical/Sedation Plan Name:Janeth [...] Relevant labs reviewed Joel Cantu MD Pager MATOR JEWELRY documented in this encounter Plan of Treatment Not on filedocumented as of this encounter Procedures Comments Procedure Name Priority Date/Time Associated Diagnosis ESOPHAGOGASTRODUODENOSCOP 08/22/2018 Chronic pancreatitis, Y WITH ENDOSCOPIC 8:15 AM ESTIMATOR JEWELRY unspecified pancreatitis ULTRASOUND EXAMINATION - type (HCC) [...] () ENDOSCOPIC ULTRASOUND 08/22/2018 REPORT 7:47 AM ESTIMATOR JEWELRY documented in this encounter Results * ENDOSCOPIC ULTRASOUND REPORT (08/22/2018 7:47 AM ESTIMATOR JEWELRY) Provation Patient Name: Regulo WILKS OTHER Report Procedure Date: 08/22/2018 7:47 RESULTS AM CSN: [id number] Date of : 1985 Gender: Female Attending Physician: Hal Sparks MD Procedure: Upper EUS Indications: Epigastric abdominal pain, Family h/o chronic pancreatitis, pancreas divisum Providers: Hal Sparks MD (Doctor), Lorenza Powers RN (Nurse), Ana Fuentes ([employer] Instructor) Referring Physician: Randy Viveros MD Medications: Monitored [...] 55 seconds Procedure Code(s): --- Professional --- 73720, Esophagogastroduodenoscopy, flexible, transoral; with endoscopic ultrasound examination limited to the esophagus, stomach or duodenum, and adjacent structures CPT copyright 2017 [employer]. All rights reserved. The codes documented in this report are preliminary and upon drafter heating and ventilating review may be revised to meet current [...] Medication Order MAR Action 08/22/2018 7:26 AM ESTIMATOR JEWELRY 1,000 mL sodium chloride 0.9 % infusion Given - New 1,000 mL, Intravenous, CONTINUOUS, Bag Starting Sat08/22/18 at 0730, Until Sat08/22/18 at 1121, Pre-Op documented in this encounter
--- OUTSIDE RECORDS SUMMARY | 2019-01-10 17:00 | XMS REPORT | Encounter Summary ---
Author Author [facility] Organization [facility] Address Unknown Phone Unavailable Care Team Providers Care Substance Abuse Clinician Name Role Phone Michael Sutton MD Unavailable Unavailable Mary Whittington MD PCP Jessica Valera Unavailable Maggie Puente Unavailable Unavailable Mary Telles WALL STEAMER Unavailable Bam Ritter MD Unavailable Radha Bo AIRCRAFT MAINTENANCE MANAGER Unavailable Unavailable Jose Sanchez MD Unavailable Reason for Visit * Auth/Cert Referred By Contact Referred To Contact Status Reason Specialty Diagnoses / Procedures Diagnoses Chronic pancreatitis, unspecified pancreatitis type (HCC) Nausea Generalized abdominal pain Chronic pancreatitis, unspecified pancreatitis type (HCC) [K86.1] Nausea [R11.0] Generalized abdominal pain [R10.84] P rocedures CA EGD TRANSORAL BIOPSY SINGLE/MULTIPLE CA EDG US EXAM SURGICAL ALTER STOM DUODENUM/JEJUNUM ESOPHAGOGASTRODUOD ENOSCOPY WITH BIOPSY - FLEXIBLE ESOPHAGOGASTRODUOD ENOSCOPY WITH ENDOSCOPIC ULTRASOUND EXAMINATION - FLEXIBLE Encounter Details Care Team Description Date Type Department Ekaterina Chairez CRNA [id number] [place], [place] [id number] 08/22/2018 Anesthesia [facility] [address] [place] [address] Anesthesia Record Responsible Anesthesiologist Anesthesia [...] Janice Dickerson MD - 08/22/2018 8:52 AM WEIGHT AND BALANCE CONTROL AGENT Post-Anesthesia Evaluation Name: Janeth Rajput : 1985 [...] Perioperative Event: No Emergency Case Activation: No HT AND BALANCE CONTROL AGENT * Anesthesia Preprocedure Evaluation - Nuzhat Rudolph CRNA - 08/22/2018 7:04 AM WEIGHT AND BALANCE CONTROL AGENT Anesthesia Pre-Procedure Evaluation Name: Janeth Rajput : [...] Consent: consented Plan discussed with: anesthesiologist and HEAD TEACHER. Comments: (Pt reports fentanyl and demerol allergy, says they cause itching and hallucinations. Reports she received benadryl for her last procedure and receive d fentanyl and had no adverse outcomes.) HT AND BALANCE CONTROL AGENT documented in this encounter Plan of Treatment Not on filedocumented as of this encounter Visit Diagnoses Not on filedocumented in this encounter Administered Medications Action Date Dose Rate Site Medication Order MAR Action 08/22/2018 8:18 AM WEIGHT AND BALANCE CONTROL AGENT 120 mg lidocaine (PF) injection Given INTRA-PROCEDURE MED, Starting Sat08/22/18 at 0818, Until Sat08/22/18 at 0834, Anesthesia Intra-op 08/22/2018 8:18 AM WEIGHT AND BALANCE CONTROL AGENT 4 mg ondansetron (ZOFRAN) injection Given INTRA-PROCEDURE MED, Starting Sat08/22/18 at 0818, Until Sat08/22/18 at 0834, Anesthesia Intra-op 08/22/2018 8:24 AM WEIGHT AND BALANCE CONTROL AGENT 140 mcg/kg/min 102.9 mL/hr propofol (DIPRIVAN) infusion Dose/Rate 50 mL, Intravenous, INTRA-PROCEDURE Change MED(CONT), Starting Sat08/22/18 at 0819, Until Sat08/22/18 at 0834, Anesthesia Intra-op 130 mcg/kg/min 95.6 mL/hr Dose/Rate Change 08/22/2018 8:22 AM WEIGHT AND BALANCE CONTROL AGENT 120 mcg/kg/min 88.2 mL/hr Given - New Bag 08/22/2018 8:19 AM WEIGHT AND BALANCE CONTROL AGENT 08/22/2018 8:26 AM WEIGHT AND BALANCE CONTROL AGENT 10 mg propofol (DIPRIVAN) injection Given INTRA-PROCEDURE MED, Starting Sat08/22/18 at 0819, Until Sat08/22/18 at 0834, Anesthesia Intra-op 20 mg Given 08/22/2018 8:25 AM WEIGHT AND BALANCE CONTROL AGENT 20 mg Given 08/22/2018 8:23 AM WEIGHT AND BALANCE CONTROL AGENT documented in this encounter
--- OUTSIDE RECORDS SUMMARY | 2019-01-10 17:01 | XMS REPORT | Encounter Summary ---
Author Author [facility] Organization [facility] Address Unknown Phone Unavailable Care Team Providers Care [employer] Caretaker Name Role Phone Michael Sutton MD Unavailable Unavailable Mary Whittington MD PCP Jessica Valera Unavailable Maggie Puente Unavailable Unavailable Mary Telles APRN Unavailable Bam Ritter MD Unavailable Radha Bo LPN Unavailable Unavailable Jose Sanchez MD Unavailable Reason for Visit * Reason Comments Medication Refill Encounter Details Care Team Description Date Type Department Randy Nunez MD [address] Ortho/Med Pavilion [address] [place] [address] Medication monitoring encounter 07/15/2018 Refill [facility] [address] [place] [address] Social History Date Tobacco Use [...]
--- NOTE | 2019-01-10 18:44 | ED Lower Extremity ---
General Chief Complaint: Lower Extremity Stated Complaint: L LEG PAIN Nursing Triage Note: pt c/o a swollen, tight, and burning left calf and foot x 2 days. pt amb to room 5, A/Ox3. pt states her leg always swells when she has issues with her hernia but states "it's never been this bad." Nursing Sepsis Screen: No Definite Risk Source: patient Exam Limitations: no limitations History of Present Illness Date Seen by Provider: Jan 10, 2019 Time Seen by Provider: 18:20 Initial Comments 29-year-old female patient presents to the emergency department the left lower extremity pain, swelling, and "blue lines". Onset 2 days. initially reported pain as burning, but now states pain is sharp and crampy. She states she tried using soap and water as well as rubbing alcohol to clean the blue lines off without improvement. patient reports the swelling to the feet is chronic and she is seeing dr. garcia for this . She states that she has had intermittent LLE swelling and pain since having her abdominal incisional hernia. Patient denies claudication, SOA, chest pain, ZAMORA. Patient states she has a f/u appointment on Saturday with Dr. Garcia. She denies taking tylenol or hydrocodone for the pain, but states she does have both medications at home. Location Injury Occurred: denies known injury Onset: other (2 day onset.) Pain/Injury Location: left knee Method of Injury: unknown Modifying Factors: Worse With Other (worse with palpation) Allergies and Home Medications Allergies Coded Allergies: fentanyl (Verified Allergy, Unknown, 10/16/18) meperidine (Verified Allergy, Unknown, 10/16/18) penicillin G (Verified Allergy, Unknown, 10/16/18) vancomycin (Unverified Adverse Reaction, Intermediate, severe itching, 10/16/18) Home Medications Cyanocobalamin 1,000 Mcg/Ml Inj, 1,000 MCG IJ MONTHLY, (Reported) Estradiol 1 Mg Tablet, 1 MG PO HS, (Reported) Hydrocodone/Acetaminophen 1 Each Tablet, 1 EA PO Q6HR PRN for PAIN-MODERATE Prescribed by: LINDSEY MARROQUIN on 10/23/18 1307 Metoprolol Succinate 25 Mg Tab.er.24h, 25 MG PO HS, (Reported) Omeprazole 40 Mg Capsule.dr, 40 MG PO DAILY, (Reported) Ondansetron 8 Mg Tab.rapdis, 8 MG PO BID PRN for NAUSEA/VOMITING-1ST LINE, (Reported) Promethazine HCl 25 Mg Tablet, 25 MG PO Q6H PRN for NAUSEA/VOMITING Prescribed by: DEMETRIO KAY on 11/15/18 1639 Ropinirole HCl 4 Mg Tablet, 4 MG PO HS, (Reported) Sertraline HCl 50 Mg Tablet, 50 MG PO HS, (Reported) Tizanidine HCl 4 Mg Tablet, 4 MG PO TID PRN for MUSCLE SPASMS, (Reported) Patient Home Medication List Home Medication List Reviewed: Yes Review of Systems Constitutional: No chills, No dizziness, No fever, No malaise Respiratory: No cough, No dyspnea on exertion, No short of breath, No stridor, No wheezing Cardiovascular: No chest pain, No palpitations, No syncope Gastrointestinal: abdominal pain (chronic LLQ abd pain (pt reports no different than usual pain).) Musculoskeletal: see HPI Skin: see HPI Psychiatric/Neurological: No Symptoms Reported All Other Systems Reviewed Negative Unless Noted: Yes (Negative excepted noted.) Past Ueenkel-Jkmawf-Ctjudg Hx Past Med/Social Hx: Reviewed Nursing Past Med/Soc Hx Patient Social History Alcohol Use: Denies Use Recreational Drug Use: No Smoking Status: Never a Smoker Type Used: Cigarettes 2nd Hand Smoke Exposure: No Recent Foreign Travel: No Contact w/Someone Who Travel: No Recent Infectious Disease Expo: No Recent Hopitalizations: Yes (10/22/18 ABD SX) Immunizations Up To Date Tetanus Booster (TDap): Unknown PED Vaccines UTD: No Date of Pneumonia Vaccine: May 17, 2012 Date of Influenza Vaccine: Jul 03, 2012 Seasonal Allergies Seasonal Allergies: Yes (MILD) Past Medical History Surgeries: Yes (LEFT NEPHRECTOMY; INCISIONAL HERNIA REPAIR; EGD'S AND COLONOSCOPIES) Abdominal, Adenoidectomy, Appendectomy, Gallbladder, 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, Nephrectomy, Orthopedic, Tonsillectomy Respiratory: Yes Asthma Currently Using CPAP: No Currently Using BIPAP: No Cardiac: Yes Hypertension Neurological: Yes (RESTLESS LEG SYNDROME) Headaches /Migraines 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: No (HX ENDOMETRIOSIS ) 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 INSTRUCTIONAL 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 SPECIALIST History: 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 Sexually Transmitted Disease: No HIV/AIDS: No Genitourinary: Yes (L KIDNEY REMOVED FOR TUMOR-MALIGNANT;) UTI-Chronic Gastrointestinal: Yes Abdominal Hernia, Liver Disease/Jaundice, Pancreatitis, Polyps Musculoskeletal: Yes (COCCYX-REPAIRED, ) Chronic Back Pain Endocrine: Yes (CHRONIC PANCREATITIS; OBESITY) HEENT: No Loss of Vision: Denies Hearing Impairment: Denies Cancer: Yes Kidney Did You Recieve Any Treatments: Yes What Type of Treatment Did You: Surgical Intervention Psychosocial: Yes Anxiety, Depression Integumentary: Yes Herpes Blood Disorders: No Adverse Reaction/Blood Tranf: No (N/A) Family Medical History Reviewed Nursing Family Hx Cardiovascular disease 19 FATHER Completed stroke 19 FATHER Diabetes mellitus 19 FATHER Hypercholesterolemia 19 FATHER 19 MOTHER Hypertension 19 FATHER 19 MOTHER Neoplasm 19 MOTHER Psychosocial problem 19 FATHER 19 MOTHER No Pertinent Family Hx, Cancer, Diabetes, Hypertension Physical Exam Vital Signs Vital Signs - First Documented 01/10/19 17:03 Temp 98.0 Pulse 96 Resp 18 B/P (MAP) 147/89 (108) Pulse Ox 98 O2 Delivery Room Air Capillary Refill : Less Than 3 Seconds Height, Weight, BMI Height: 5'2.00" Weight: 260lbs. 0.0oz. 117.259417ke; 47.6 BMI Method:Stated Progress/Results/Core Measures Results/Orders My Orders Orders - KIARA CALVERT Hydrocodone/Apap 5/325 Tablet (Lortab 5 (01/10/19 19:30) Vital Signs/I&O 01/10/19 17:03 Temp 98.0 Pulse 96 Resp 18 B/P (MAP) 147/89 (108) Pulse Ox 98 O2 Delivery Room Air Blood Pressure Mean: 108 Departure Impression Primary Impression: Left leg pain Additional Impression: Pedal edema Disposition: 01 HOME, SELF-CARE Condition: Improved Departure-Patient Inst. Decision time for Depature: 19:03 Referrals: CARMEN GARCIA MD (PCP/Family) Primary Care Physician Patient Instructions: Swelling Add. Discharge Instructions: All discharge instructions reviewed with patient and/or family. Voiced un derstanding. Continue usual home medications. Call via [facility] scheduling Saturday to schedule the outpatient left lower extremity ultrasound. Follow-up with Dr. Garcia on Saturday as previously scheduled for ultrasound results. Return to the emergency department for worsened pain, swelling, redness, fever, shortness of air, chest pain, or any other concerns. KIARA CALVERT Jan 10, 2019 18:44
[2019-01-10 19:27] VITALS: BP 129/98
[2019-01-10] MEDS ORDERED: HYDROcodone/APAP 5 MG/325 MG (LORTAB) TAB PO ONE (19:30)
== END 2019-01-10 19:32 | disposition home or self-care (01) ==
LOC: EDUNIT# 16:49 → ER 16:51
DX: M79.605 Pain in left leg (principal); R60.0 Localized edema; I10 Essential (primary) hypertension; J45.909 Unspecified asthma, uncomplicated; G43.909 Migraine, unspecified, not intractable, without status migrainosus; E66.9 Obesity, unspecified; F32.9 Major depressive disorder, single episode, unspecified; F41.9 Anxiety disorder, unspecified; Z85.528 Personal history of other malignant neoplasm of kidney; Z88.5 Allergy status to narcotic agent; Z88.0 Allergy status to penicillin; Z88.1 Allergy status to other antibiotic agents; Z79.52 Long term (current) use of systemic steroids; Z90.89 Acquired absence of other organs; Z90.710 Acquired absence of both cervix and uterus; Z90.49 Acquired absence of other specified parts of digestive tract; Z90.5 Acquired absence of kidney; Z87.19 Personal history of other diseases of the digestive system; Z98.890 Other specified postprocedural states; Z82.49 Family history of ischemic heart disease and other diseases of the circulatory system; Z80.9 Family history of malignant neoplasm, unspecified
CPT/HCPCS: 99283

== ENCOUNTER → 2019-01-20 | Outpatient (CLI) | payer MEDICARE, MEDICAID ==
[~2019-01-20] MED LIST changes: -TIZA4TAB3 PO; +TIZA4TAB4 PO
--- NOTE | 2019-01-20 12:22 | Diagnostic Imaging Report ---
PROCEDURE: US Hepatic (Liver). TECHNIQUE: Multiple real-time grayscale images were obtained over the right upper quadrant in various projections. INDICATION: Elevated liver enzymes. COMPARISON: 10/01/2017 FINDINGS: Hepatomegaly (23 cm in length) with diffuse increased echogenicity is compatible with hepatic steatosis, and unchanged since prior examination. No focal hepatic lesion appreciated, although decreased sound transmission through the liver from hepatic steatosis does mildly limit assessment. Main portal vein is patent with normal direction of flow. The left hepatic vein also has normal direction of flow. Cholecystectomy. The common bile duct measures up to 0.4 cm in diameter. No intrahepatic biliary dilation. The pancreas is obscured by overlying bowel gas. No abdominal ascites. The right kidney is normal in size. No hydronephrosis, shadowing calculi, or suspicious mass lesion. IMPRESSION: 1. Hepatomegaly with severe diffuse hepatic steatosis is similar to prior ultrasound of 10/01/2017. Dictated by: Dictated on workstation # [id number]
== END ==
LOC: RAD 07:16
PROVIDERS: ATTEND Family Medicine
DX: K76.0 Fatty (change of) liver, not elsewhere classified (principal); R94.5 Abnormal results of liver function studies
CPT/HCPCS: 76705

== ENCOUNTER → 2019-01-20 | Outpatient (CLI) | payer MEDICARE, MEDICAID ==
--- NOTE | 2019-01-20 08:51 | Diagnostic Imaging Report ---
PROCEDURE: US left lower extremity venous. TECHNIQUE: Multiple real-time grayscale images were obtained over the left lower extremity in various projections. Additional duplex Doppler and color Doppler images were also obtained. INDICATION: Left calf pain and swelling. Comparison: None available. Findings: The left common femoral, femoral and popliteal veins are patent by color doppler imaging and without DVT. Visualized proximal aspects of the greater saphenous, deep femoral, posterior tibial and peroneal veins are also patent. All of the evaluated deep venous structures demonstrate normal compressibility and waveform augmentation where applicable. Impression: No left lower extremity deep venous thrombosis (DVT). Dictated by: Dictated on workstation # [id number]
== END ==
LOC: RAD 07:17
PROVIDERS: ATTEND Physician Assistant
DX: R22.42 Localized swelling, mass and lump, left lower limb (principal)

== ENCOUNTER 2019-01-26 19:07 | Emergency (ER) | payer MEDICARE, MEDICAID ==
[~2019-01-26] VITALS: Ht 160 cm; Wt 117.0 kg
--- OUTSIDE RECORDS SUMMARY | 2019-01-26 19:18 | XMS REPORT | Clinical Summary ---
Author Author [facility] Organization [facility] Address Unknown Phone Unavailable Care Team Providers Care Sandwich Hand Name Role Phone Michael Sutton MD [...] you expected, contact Release of Information in [facility] Information Management department at [phone] for further assistan ce in locating additional records.[facility] Allergies Comments Active Allergy Reactions Severity [...] Overview: Added automatically from request for surgery [id number] Intractable vomiting with nausea 01/14/2018 Overview: Added automatically from request for surgery [id number] Left renal mass 04/10/2017 Renal mass 03/21/2017 Overview: Added automatically from request for surgery [id number] 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 06/24/2013 Overview: S/P HOLLAND, BSO 11/27 Depression 06/24/2013 S/P cholecystectomy 06/24/2013 Overview: 2007 S/P appendectomy 06/24/2013 Overview: November 2012 Pancreatitis 10/23/2011 Encounters Care Team Description Date Type Specialty Randy Nunez MD Medication monitoring encounter 12/29/2018 Refill Gastroenterology from Last 3 Months Family [...] Comments Vital Sign 115/86 08/22/2018 8:50 AM DRAWER WAXER Blood Pressure 89 08/22/2018 8:54 AM DRAWER WAXER Pulse 36.8 C (98.2 F) 08/22/2018 8:30 AM DRAWER WAXER Temperature 18 05/19/2018 1:06 PM DRAWER WAXER Respiratory Rate 96% 08/22/2018 8:53 AM DRAWER WAXER Oxygen Saturation - - Inhaled Oxygen Concentration 122.5 kg (270 lb) 08/22/2018 7:00 AM DRAWER WAXER Weight 157.5 cm (5' 2") 08/22/2018 7:00 AM DRAWER WAXER Height 49.38 08/22/2018 7:00 AM DRAWER WAXER Body Mass Index Plan of Treatment Health [...] Present B AETNA MEDICAID AETNA xxxxxxxxxxx 2018-P [facility] Advance Directives Patient Associate Curator Explanation Type Date Recorded Advance 04/10/2017 8:47 AM Directive/DPOA Date Inactivated Comments Code Status Date Activated 04/11/2017 4:57 PM Full Code 04/10/2017 5:31 PM Provider has discussed Code Status No, discussion not w/Patient or Family? necessary based on Dx
--- OUTSIDE RECORDS SUMMARY | 2019-01-26 19:18 | XMS REPORT | Encounter Summary ---
Author Author [facility] Organization [facility] Address Unknown Phone Unavailable Care Team Providers Care Hotel Concierge Name Role Phone Michael Sutton MD Unavailable Unavailable Mary Whittington MD PCP Jessica Valera Unavailable Maggie Puente Unavailable Unavailable Mary Telles APRN Unavailable Bam Ritter MD Unavailable Radha Bo LPN Unavailable Unavailable Jose Sanchez MD Unavailable Reason for Visit * Reason Comments Medication Refill Encounter Details Care Team Description Date Type Department Randy Nunez MD [address] Ortho/Med Pavilion [address]vl [address] [place] [address] Medication monitoring encounter 12/29/2018 Refill [facility] [address] [place] [address] Social History Date Tobacco [...] to approve/ deny refill. VITAMIN B12 Order: [id number] Status: Final result Visible to patient: Yes (MyChart) Next appt: 019 at 10:30 AM in Radiology ([facility] Draw Chair-[place]) Dx: B12 deficiency Ref Range & Units 09/02/17 1040 06/03/17 1128 Vitamin B12 180 - 914 PG/ML 495 185 Specimen Collected: 09/02/17 10:40 documented in this encounter Plan of Treatment Not on filedocumented as of this encounter Visit Diagnoses Diagnosis Medication monitoring encounter Encounter for therapeutic drug monitoring documented in this encounter
--- OUTSIDE RECORDS SUMMARY | 2019-01-26 19:18 | XMS REPORT | Encounter Summary ---
Author Author [facility] Organization [facility] Address Unknown Phone Unavailable Care Team Providers Care Disciplinary Hearing Officer Name Role Phone Michael Sutton MD Unavailable Unavailable Mary Whittington MD PCP Jessica Valera Unavailable Maggie Puente Unavailable Unavailable Mary Telles APRN Unavailable Bam Ritter MD Unavailable Radha Bo LPN Unavailable Unavailable Jose Sanchez MD Unavailable Reason for Visit * Reason Comments Other Encounter Details Care Team Description Date Type Department Jessica Valera ARNP [address] [facility] Ortho/Med [address] [place] [address] Other 10/14/2018 Telephone [facility] [address] [place] [address] Social History Date Tobacco Use [...] is currently admitted to the hospital at [facility] in [place], [place]. States "they saw signs of a [...]
--- OUTSIDE RECORDS SUMMARY | 2019-01-26 19:19 | XMS REPORT | Encounter Summary ---
Author Author [facility] Organization [facility] Address Unknown Phone Unavailable Care Team Providers Care Tire Balancer Name Role Phone Michael Sutton MD Unavailable Unavailable Mary Whittington MD PCP Jessica Valera Unavailable Maggie Puente Unavailable Unavailable Mary Telles APRN Unavailable Bam Ritter MD Unavailable Radha Bo LPN Unavailable Unavailable Jose Sanchez MD Unavailable Reason for Visit * Reason Comments Referral Encounter Details Care Team Description Date Type Department Abel Poe MD [address] [place] [address] [phone] Referral 09/25/2018 Telephone [facility] [address] [address] Social History Date Tobacco Use Types Packs/Day [...] name and will let her physician in [place] know. documented in this encounter Plan of Treatment Not on filedocumented as of this encounter Visit Diagnoses Not on filedocumented in this encounter
--- OUTSIDE RECORDS SUMMARY | 2019-01-26 19:20 | XMS REPORT | Encounter Summary ---
Author Author [facility] Organization [facility] Address Unknown Phone Unavailable Care Team Providers Care Side Gluer Name Role Phone Michael Sutton MD Unavailable Unavailable Mary Whittington MD PCP Jessica Valera Unavailable Maggie Puente Unavailable Unavailable Mary Telles APRN Unavailable Bam Ritter MD Unavailable Radha Bo LPN Unavailable Unavailable Jose Sanchez MD Unavailable Reason for Visit * Reason Comments Medication Refill Encounter Details Care Team Description Date Type Department eJssica Valera ARNP [address] Ortho/Med Pavilion [address] [place] [address] Chronic nausea; Chronic vomiting 09/09/[address] [facility] [address] [place] [address] Social History Date Tobacco Use [...]
--- OUTSIDE RECORDS SUMMARY | 2019-01-26 19:20 | XMS REPORT | Encounter Summary ---
Author Author [facility] Organization [facility] Address Unknown Phone Unavailable Care Team Providers Care Supervisor Hand Silvering Name Role Phone Michael Sutton MD Unavailable Unavailable Mary Whittington MD PCP Jessica Valera Unavailable Maggie Puente Unavailable Unavailable Mary Telles APRN Unavailable Bam Ritter MD Unavailable Radha Bo LPN Unavailable Unavailable Jose Sanchez MD Unavailable Encounter Details Care Team Description Date Type Department Melina Vargas Diarrhea, unspecified type 08/29/2018 Orders Only [facility] [address] [place] [address] Social History Date Tobacco Use [...]
--- OUTSIDE RECORDS SUMMARY | 2019-01-26 19:21 | XMS REPORT | Encounter Summary ---
Author Author [facility] Organization [facility] Address Unknown Phone Unavailable Care Team Providers Care Banana Handler Name Role Phone Michael Sutton MD Unavailable Unavailable aMry Whittington MD PCP Jessica Valera Unavailable Maggie Puente Unavailable Unavailable Mary Telles ASSISTANT PROFESSOR OF BIOLOGY Unavailable Bam Ritter MD Unavailable Radha Bo VULCANIZER OPERATOR Unavailable Unavailable Jose Sanchez MD Unavailable Reason for Visit * Auth/Cert Referred By Contact Referred To Contact Status Reason Specialty Diagnoses / Procedures Diagnoses Chronic pancreatitis, unspecified pancreatitis type (HCC) Nausea Generalized abdominal pain Chronic pancreatitis, unspecified pancreatitis type (HCC) [K86.1] Nausea [R11.0] Generalized abdominal pain [R10.84] P rocedures [place] EGD TRANSORAL BIOPSY SINGLE/MULTIPLE ND EDG US EXAM SURGICAL ALTER STOM DUODENUM/JEJUNUM ESOPHAGOGASTRODUOD ENOSCOPY WITH BIOPSY - FLEXIBLE ESOPHAGOGASTRODUOD ENOSCOPY WITH ENDOSCOPIC ULTRASOUND EXAMINATION - FLEXIBLE Encounter Details Care Team Description Date Type Department Ekaterina Chairez CRNA [id number] [place], [place] [id number] 08/22/2018 Anesthesia [facility] [address] [place] [address] Anesthesia Record Responsible Anesthesiologist Anesthesia [...] Janice Dickerson MD - 08/22/2018 8:52 AM INSTRUCTIONAL SERVICES SPECIALIST Post-Anesthesia Evaluation Name: Janeth Rajput : 1985 [...] Perioperative Event: No Emergency Case Activation: No RUCTIONAL SERVICES SPECIALIST * Anesthesia Preprocedure Evaluation - Nuzhat Rudolph CRNA - 08/22/2018 7:04 AM INSTRUCTIONAL SERVICES SPECIALIST Anesthesia Pre-Procedure Evaluation Name: Janeth Rajput : [...] Consent: consented Plan discussed with: anesthesiologist and SENIOR INTERIOR DESIGNER. Comments: (Pt reports fentanyl and demerol allergy, says they cause itching and hallucinations. Reports she received benadryl for her last procedure and receive d fentanyl and had no adverse outcomes.) RUCTIONAL SERVICES SPECIALIST documented in this encounter Plan of Treatment Not on filedocumented as of this encounter Visit Diagnoses Not on filedocumented in this encounter Administered Medications Action Date Dose Rate Site Medication Order MAR Action 08/22/2018 8:18 AM INSTRUCTIONAL SERVICES SPECIALIST 120 mg lidocaine (PF) injection Given INTRA-PROCEDURE MED, Starting Sat08/22/18 at 0818, Until Sat08/22/18 at 0834, Anesthesia Intra-op 08/22/2018 8:18 AM INSTRUCTIONAL SERVICES SPECIALIST 4 mg ondansetron (ZOFRAN) injection Given INTRA-PROCEDURE MED, Starting Sat08/22/18 at 0818, Until Sat08/22/18 at 0834, Anesthesia Intra-op 08/22/2018 8:24 AM INSTRUCTIONAL SERVICES SPECIALIST 140 mcg/kg/min 102.9 mL/hr propofol (DIPRIVAN) infusion Dose/Rate 50 mL, Intravenous, INTRA-PROCEDURE Change MED(CONT), Starting Sat08/22/18 at 0819, Until Sat08/22/18 at 0834, Anesthesia Intra-op 130 mcg/kg/min 95.6 mL/hr Dose/Rate Change 08/22/2018 8:22 AM INSTRUCTIONAL SERVICES SPECIALIST 120 mcg/kg/min 88.2 mL/hr Given - New Bag 08/22/2018 8:19 AM INSTRUCTIONAL SERVICES SPECIALIST 08/22/2018 8:26 AM INSTRUCTIONAL SERVICES SPECIALIST 10 mg propofol (DIPRIVAN) injection Given INTRA-PROCEDURE MED, Starting Sat08/22/18 at 0819, Until Sat08/22/18 at 0834, Anesthesia Intra-op 20 mg Given 08/22/2018 8:25 AM INSTRUCTIONAL SERVICES SPECIALIST 20 mg Given 08/22/2018 8:23 AM INSTRUCTIONAL SERVICES SPECIALIST documented in this encounter
--- OUTSIDE RECORDS SUMMARY | 2019-01-26 19:22 | XMS REPORT | Encounter Summary ---
Author Author [facility] Organization [facility] Address Unknown Phone Unavailable Care Team Providers Care Bowling Ball Mold Assembler Name Role Phone Michael Sutton MD Unavailable Unavailable Mary Whittington MD PCP Jessica Valera Unavailable Maggie Puente Unavailable Unavailable Mary Telles APRN Unavailable Bam Ritter MD Unavailable Radha Bo LPN Unavailable Unavailable Jose Sanchez MD Unavailable Reason for Visit * Reason Comments Medication Refill Encounter Details Care Team Description Date Type Department Randy Nunez MD [address] [facility] [address] [place] [address] Medication monitoring encounter 08/18/2018 Refill [facility] [address] [place] [address] Social History Date Tobacco Use [...]
--- OUTSIDE RECORDS SUMMARY | 2019-01-26 19:22 | XMS REPORT | Encounter Summary ---
Author Author [facility] Organization [facility] Address Unknown Phone Unavailable Care Team Providers Care Assembler Clip On Sunglasses Name Role Phone Michael Sutton MD Unavailable Unavailable Mary Whittington MD PCP Jessica Valera Unavailable Maggie Puente Unavailable Unavailable Mary Telles BUREAU CHIEF Unavailable Bam Ritter MD Unavailable Radha Bo LPN Unavailable Unavailable Jose Sanchez MD Unavailable Reason for Visit * Auth/Cert Referred By Contact Referred To Contact Status Reason Specialty Diagnoses / Procedures Diagnoses Chronic pancreatitis, unspecified pancreatitis type (HCC) Nausea Generalized abdominal pain Chronic pancreatitis, unspecified pancreatitis type (HCC) [K86.1] Nausea [R11.0] Generalized abdominal pain [R10.84] P rocedures [place] EGD TRANSORAL BIOPSY SINGLE/MULTIPLE [place] EDG US EXAM SURGICAL ALTER STOM DUODENUM/JEJUNUM ESOPHAGOGASTRODUOD ENOSCOPY WITH BIOPSY - FLEXIBLE ESOPHAGOGASTRODUOD ENOSCOPY WITH ENDOSCOPIC ULTRASOUND EXAMINATION - FLEXIBLE Encounter Details Care Team Description Date Type Department Hal Sparks MD [address] [facility] [place] [address] [place] [address] Chronic pancreatitis, unspecified pancreatitis type (HCC) 08/22/2018 Hospital [facility] [address] [place] [address] Social History Date Tobacco Use [...] Comments Vital Sign 115/86 08/22/2018 8:50 AM OPERATING ROOM ASSISTANT Blood Pressure 89 08/22/2018 8:54 AM OPERATING ROOM ASSISTANT Pulse 36.8 C (98.2 F) 08/22/2018 8:30 AM OPERATING ROOM ASSISTANT Temperature - - Respiratory Rate 96% 08/22/2018 8:53 AM OPERATING ROOM ASSISTANT Oxygen Saturation - - Inhaled Oxygen Concentration 122.5 kg (270 lb) 08/22/2018 7:00 AM OPERATING ROOM ASSISTANT Weight 157.5 cm (5' 2") 08/22/2018 7:00 AM OPERATING ROOM ASSISTANT Height 49.38 08/22/2018 7:00 AM OPERATING ROOM ASSISTANT Body Mass Index documented in this encounter [...] Mary Lechuga RN - 08/22/2018 8:46 AM OPERATING ROOM ASSISTANT EGD/Upper EUS/ERCP/Antegrade Enteroscopy Post Upper Endoscopy Instructions [...] After 5:00 pm, holidays or weekends call [phone] a nd ask for the GI Doctor energy economist. ATING ROOM ASSISTANT documented in this encounter Medications at Time [...] Joel Cantu MD - 08/22/2018 8:12 AM OPERATING ROOM ASSISTANT Pre Procedure History and Physical/Sedation Plan Name:Janeth [...] Relevant labs reviewed Joel Cantu MD Pager ATING ROOM ASSISTANT documented in this encounter Plan of Treatment Not on filedocumented as of this encounter Procedures Comments Procedure Name Priority Date/Time Associated Diagnosis ESOPHAGOGASTRODUODENOSCOP 08/22/2018 Chronic pancreatitis, Y WITH ENDOSCOPIC 8:15 AM OPERATING ROOM ASSISTANT unspecified pancreatitis ULTRASOUND EXAMINATION - type (HCC) [...] () ENDOSCOPIC ULTRASOUND 08/22/2018 REPORT 7:47 AM OPERATING ROOM ASSISTANT documented in this encounter Results * ENDOSCOPIC ULTRASOUND REPORT (08/22/2018 7:47 AM OPERATING ROOM ASSISTANT) Provation Patient Name: Regulo WILKS OTHER Report Procedure Date: 08/22/2018 7:47 RESULTS AM CSN: [id number] Date of : 1985 Gender: Female Attending Physician: Hal Sparks MD Procedure: Upper EUS Indications: Epigastric abdominal pain, Family h/o chronic pancreatitis, pancreas divisum Providers: Hal Sparks MD (Doctor), Lorenza Powers RN (Nurse), Ana Fuentes (Flyer Builder) Referring Physician: Randy Viveros MD Medications: Monitored [...] 55 seconds Procedure Code(s): --- Professional --- 06858, Esophagogastroduodenoscopy, flexible, transoral; with endoscopic ultrasound examination limited to the esophagus, stomach or duodenum, and adjacent structures CPT copyright 2017 [employer]. All rights reserved. The codes documented in this report are preliminary and upon structural steel erection supervisor review may be revised to meet current [...] Medication Order MAR Action 08/22/2018 7:26 AM OPERATING ROOM ASSISTANT 1,000 mL sodium chloride 0.9 % infusion Given - New 1,000 mL, Intravenous, CONTINUOUS, Bag Starting Sat08/22/18 at 0730, Until Sat08/22/18 at 1121, Pre-Op documented in this encounter
--- OUTSIDE RECORDS SUMMARY | 2019-01-26 19:22 | XMS REPORT | Encounter Summary ---
Author Author [facility] Organization [facility] Address Unknown Phone Unavailable Care Team Providers Care Filler Shaker Name Role Phone Michael Sutton MD Unavailable Unavailable Mary Whittington MD PCP Jessica Valera Unavailable Maggie Puente Unavailable Unavailable Mary Telles CYBER SOFTWARE ENGINEER Unavailable Bam Ritter MD Unavailable Radha Bo LPN Unavailable Unavailable Jose Sanchez MD Unavailable Reason for Visit * Auth/Cert Referred By Contact Referred To Contact Status Reason Specialty Diagnoses / Procedures Diagnoses Chronic pancreatitis, unspecified pancreatitis type (HCC) Nausea Generalized abdominal pain Chronic pancreatitis, unspecified pancreatitis type (HCC) [K86.1] Nausea [R11.0] Generalized abdominal pain [R10.84] P rocedures [place] EGD TRANSORAL BIOPSY SINGLE/MULTIPLE [place] EDG US EXAM SURGICAL ALTER STOM DUODENUM/JEJUNUM ESOPHAGOGASTRODUOD ENOSCOPY WITH BIOPSY - FLEXIBLE ESOPHAGOGASTRODUOD ENOSCOPY WITH ENDOSCOPIC ULTRASOUND EXAMINATION - FLEXIBLE Encounter Details Care Team Description Date Type Department Hal Sparks MD [address] [facility] [address] [address] ESOPHAGOGASTRODUODENOSCOPY WITH ENDOSCOPIC ULTRASOUND EXAMINATION - FLEXIBLE 08/22/2018 Surgery [facility] [address] [place] [address] Social History Date Tobacco Use [...] Comments Vital Sign 115/86 08/22/2018 8:50 AM ART TEACHER Blood Pressure 89 08/22/2018 8:54 AM ART TEACHER Pulse 36.8 C (98.2 F) 08/22/2018 8:30 AM ART TEACHER Temperature - - Respiratory Rate 96% 08/22/2018 8:53 AM ART TEACHER Oxygen Saturation - - Inhaled Oxygen Concentration 122.5 kg (270 lb) 08/22/2018 7:00 AM ART TEACHER Weight 157.5 cm (5' 2") 08/22/2018 7:00 AM ART TEACHER Height 49.38 08/22/2018 7:00 AM ART TEACHER Body Mass Index documented in this encounter [...] Mary Lechuga RN - 08/22/2018 8:46 AM ART TEACHER EGD/Upper EUS/ERCP/Antegrade Enteroscopy Post Upper Endoscopy [...] or concerns after your procedure please call [phone] M-F 8am-5:00 pm. After 5:00 pm, holidays or weekends call [phone] a nd ask for the GI Doctor ground operations crew member. TEACHER documented in this encounter Medications at [...] Joel Cantu MD - 08/22/2018 8:12 AM ART TEACHER Pre Procedure History and Physical/Sedation Plan Name:Janeth Rjaput :1985 Age: 33 y.o. Date of Service: [...] Relevant labs reviewed Joel Cantu MD Pager TEACHER documented in this encounter Plan of Treatment Not on filedocumented as of this encounter Procedures Comments Procedure Name Priority Date/Time Associated Diagnosis ESOPHAGOGASTRODUODENOSCOP 08/22/2018 Chronic pancreatitis, Y WITH ENDOSCOPIC 8:15 AM ART TEACHER unspecified pancreatitis ULTRASOUND EXAMINATION - type [...] () ENDOSCOPIC ULTRASOUND 08/22/2018 REPORT 7:47 AM ART TEACHER documented in this encounter Results * ENDOSCOPIC ULTRASOUND REPORT (08/22/2018 7:47 AM ART TEACHER) Provation Patient Name: Regulo WILKS OTHER Report Procedure Date: 08/22/2018 7:47 RESULTS AM CSN: [id number] Date of : 1985 Gender: Female Attending Physician: Hal Sparks MD Procedure: Upper EUS Indications: Epigastric abdominal pain, Family h/o chronic pancreatitis, pancreas divisum Providers: Hal Sparks MD (Doctor), Lorenza Powers RN (Nurse), Ana Fuentes (Access Liaison) Referring Physician: Randy Viveros MD Medications: Monitored [...] 55 seconds Procedure Code(s): --- Professional --- 64763, Esophagogastroduodenoscopy, flexible, transoral; with endoscopic ultrasound examination limited to the esophagus, stomach or duodenum, and adjacent structures CPT copyright 2017 [employer]. All rights reserved. The codes documented in this report are preliminary and upon registered nurse post partum review may be revised to meet current [...] Medication Order MAR Action 08/22/2018 7:26 AM ART TEACHER 1,000 mL sodium chloride 0.9 % infusion Given - New 1,000 mL, Intravenous, CONTINUOUS, Bag Starting Sat08/22/18 at 0730, Until Sat08/22/18 at 1121, Pre-Op documented in this encounter
--- NOTE | 2019-01-26 20:48 | NUR ---
i am taking pt in fastrack. pt still c/o abd pain rating 7. still c/o nausea and no v/d noted in er visit thus far. still c/o s/t. pt alert gcs 15 with no acute sighns of dyspnea noted. pt here by self. pt to bathroom for ua.
--- NOTE | 2019-01-26 20:51 | NUR ---
strep screen by me. llanos appears wnl.
--- NOTE | 2019-01-26 20:53 | ED EENT ---
History of Present Illness General Chief Complaint: Abdominal/GI Problems Stated Complaint: SORE THROAT Nursing Triage Note: pt checked in under sore throat. but also c/o left abd pain and nausea w/o v/d. says they are connected as " i think its all the same" also says "could be my pancrease" Source: patient Exam Limitations: no limitations History of Present Illness Date Seen by Provider: Jan 26, 2019 Time Seen by Provider: 20:52 Initial Comments 33-year-old female who presents to emergency room with complaints of sore throat for the past 2 days but during triage she stated that she also complains of her chronic abdominal pain and nausea. She has chronic abdominal pain. Denies vomiting or diarrhea. Denies fevers. Allergies and Home Medications Allergies Coded Allergies: fentanyl (Verified Allergy, Unknown, 10/16/18) meperidine (Verified Allergy, Unknown, 10/16/18) penicillin G (Verified Allergy, Unknown, 10/16/18) vancomycin (Unverified Adverse Reaction, Intermediate, severe itching, 10/16/18) Home Medications Cyanocobalamin 1,000 Mcg/Ml Inj, 1,000 MCG IJ MONTHLY, (Reported) Estradiol 1 Mg Tablet, 1 MG PO HS, (Reported) Hydrocodone/Acetaminophen 1 Each Tablet, 1 EA PO Q6HR PRN for PAIN-MODERATE Prescribed by: LINDSEY MARROQUIN on 10/23/18 1307 Metoprolol Succinate 25 Mg Tab.er.24h, 25 MG PO HS, (Reported) Omeprazole 40 Mg Capsule.dr, 40 MG PO DAILY, (Reported) Ondansetron 8 Mg Tab.rapdis, 8 MG PO BID PRN for NAUSEA/VOMITING-1ST LINE, (Reported) Promethazine HCl 25 Mg Tablet, 25 MG PO Q6H PRN for NAUSEA/VOMITING Prescribed by: DEMETRIO KAY on 11/15/18 1639 Ropinirole HCl 4 Mg Tablet, 4 MG PO HS, (Reported) Sertraline HCl 50 Mg Tablet, 50 MG PO HS, (Reported) Tizanidine HCl 4 Mg Tablet, 4 MG PO TID PRN for MUSCLE SPASMS, (Reported) Past Kswuwag-Xecvpg-Ryfvdg Hx Patient Social History Alcohol Use: Denies Use Recreational Drug Use: No Smoking Status: Never a Smoker Type Used: Cigarettes 2nd Hand Smoke Exposure: No Recent Foreign Travel: No Contact w/Someone Who Travel: No Recent Infectious Disease Expo: No Recent Hopitalizations: Yes (10/22/18 ABD SX) Physical Abuse: No Sexual Abuse: No Immunizations Up To Date Tetanus Booster (TDap): Unknown PED Vaccines UTD: No Date of Pneumonia Vaccine: May 17, 2012 Date of Influenza Vaccine: Jul 03, 2012 Seasonal Allergies Seasonal Allergies: Yes (MILD) Past Medical History Surgeries: Yes (LEFT NEPHRECTOMY; INCISIONAL HERNIA REPAIR; EGD'S AND COLONOSCOPIES) Abdominal, Adenoidectomy, Appendectomy, Gallbladder, 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, Nephrectomy, Orthopedic, Tonsillectomy Respiratory: Yes Asthma Currently Using CPAP: No Currently Using BIPAP: No Cardiac: Yes Hypertension Neurological: Yes (RESTLESS LEG SYNDROME) Headaches /Migraines 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: No (HX ENDOMETRIOSIS ) 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 Sexually Transmitted Disease: No HIV/AIDS: No Genitourinary: Yes (L KIDNEY REMOVED FOR TUMOR-MALIGNANT;) UTI-Chronic Gastrointestinal: Yes Abdominal Hernia, Liver Disease/Jaundice, Pancreatitis, Polyps Musculoskeletal: Yes (COCCYX-REPAIRED, ) Chronic Back Pain Endocrine: Yes (CHRONIC PANCREATITIS; OBESITY) HEENT: No Loss of Vision: Denies Hearing Impairment: Denies Cancer: Yes Kidney Did You Recieve Any Treatments: Yes What Type of Treatment Did You: Surgical Intervention Psychosocial: Yes Anxiety, Depression Integumentary: Yes Herpes Blood Disorders: No Adverse Reaction/Blood Tranf: No (N/A) Family Medical History Cardiovascular disease 19 FATHER Completed stroke 19 FATHER Diabetes mellitus 19 FATHER Hypercholesterolemia 19 FATHER 19 MOTHER Hypertension 19 FATHER 19 MOTHER Neoplasm 19 MOTHER Psychosocial problem 19 FATHER 19 MOTHER No Pertinent Family Hx, Cancer, Diabetes, Hypertension Physical Exam Vital Signs Vital Signs - First Documented 01/26/19 19:25 Temp 98.0 Pulse 84 Resp 20 B/P (MAP) 153/98 (116) Pulse Ox 96 O2 Delivery Room Air Height, Weight, BMI Height: 5'3.00" Weight: 258lbs. 0.0oz. 117.608374wb; 47.6 BMI Method:Stated Progress/Results/Core Measures Results/Orders Lab Results Laboratory Tests Test 01/26/19 20:00 01/26/19 20:57 Range/Units Urine Color YELLOW Urine Clarity SL CLOUDY Urine pH 5 5-9 Urine Specific Libby 1.020 1.016-1.022 Urine Protein 1+ H NEGATIVE Urine Glucose (UA) NEGATIVE NEGATIVE Urine Ketones NEGATIVE NEGATIVE Urine Nitrite NEGATIVE NEGATIVE Urine Bilirubin NEGATIVE NEGATIVE Urine Urobilinogen NORMAL NORMAL MG/DL Urine Leukocyte Esterase NEGATIVE NEGATIVE Urine RBC (Auto) NEGATIVE NEGATIVE Urine RBC NONE /HPF Urine WBC 0-2 /HPF Urine Squamous Epithelial Cells 10-25 H /HPF Urine Crystals NONE /LPF Urine Bacteria MODERATE H /HPF Urine Casts NONE /LPF Urine Mucus SMALL H /LPF Urine Culture Indicated YES White Blood Count 10.2 4.3-11.0 10^3/uL Red Blood Count 4.72 4.35-5.85 10^6/uL Hemoglobin 12.2 11.5-16.0 G/DL Hematocrit 38 35-52 % Mean Corpuscular Volume 81 80-99 FL Mean Corpuscular Hemoglobin 26 25-34 PG Mean Corpuscular Hemoglobin Concent 32 32-36 G/DL Red Cell Distribution Width 14.9 H 10.0-14.5 % Platelet Count 291 130-400 10^3/uL Mean Platelet Volume 9.0 7.4-10.4 FL Neutrophils (%) (Auto) 65 42-75 % Lymphocytes (%) (Auto) 28 12-44 % Monocytes (%) (Auto) 5 0-12 % Eosinophils (%) (Auto) 3 0-10 % Basophils (%) (Auto) 0 0-10 % Neutrophils # (Auto) 6.7 1.8-7.8 X 10^3 Lymphocytes # (Auto) 2.8 1.0-4.0 X 10^3 Monocytes # (Auto) 0.5 0.0-1.0 X 10^3 Eosinophils # (Auto) 0.3 0.0-0.3 10^3/uL Basophils # (Auto) 0.0 0.0-0.1 10^3/uL Sodium Level 140 135-145 MMOL/L Potassium Level 3.9 3.6-5.0 MMOL/L Chloride Level 106 98-107 MMOL/L Carbon Dioxide Level 21 21-32 MMOL/L Anion Gap 13 5-14 MMOL/L Blood Urea Nitrogen 14 7-18 MG/DL Creatinine 0.92 0.60-1.30 MG/DL Estimat Glomerular Filtration Rate > 60 BUN/Creatinine Ratio 15 Glucose Level 90 70-105 MG/DL Calcium Level 9.7 8.5-10.1 MG/DL Corrected Calcium 9.6 8.5-10.1 MG/DL Total Bilirubin 0.3 0.1-1.0 MG/DL Aspartate Amino Transf (AST/SGOT) 44 H 5-34 U/L Alanine Aminotransferase (ALT/SGPT) 31 0-55 U/L Alkaline Phosphatase 78 40-136 U/L Total Protein 7.9 6.4-8.2 GM/DL Albumin 4.1 3.2-4.5 GM/DL Lipase 41 8-78 U/L Group A Streptococcus Screen NEGATIVE NEGATIVE My Orders Orders - DEMETRIO KAY Nitrofurantoin Capsule,Macro (Macrobid C (01/26/19 21:45) Vital Signs/I&O 01/26/19 19:25 Temp 98.0 Pulse 84 Resp 20 B/P (MAP) 153/98 (116) Pulse Ox 96 O2 Delivery Room Air Blood Pressure Mean: 116 Departure Impression Primary Impression: Abdominal pain Additional Impressions: Urinary tract infection Sore throat Disposition: 01 HOME, SELF-CARE Condition: Stable/Unchanged Departure-Patient Inst. Decision time for Depature: 21:36 Referrals: CARMEN GIBBS MD (PCP/Family) Primary Care Physician Patient Instructions: Sore Throat in Adults, Urinary Tract Infection, Adult (DC) Add. Discharge Instructions: You may use ibuprofen and Tylenol as directed by the bottle for pain relief. Follow-up with her primary care provider within 1 week for recheck. Take antibiotics as directed. Return back to the emergency room for worsening symptoms or concerns as needed. All discharge instructions reviewed with patient and/or family. Voiced understanding. Scripts Nitrofurantoin Monohyd/M-Cryst (Macrobid 100 mg Capsule) 100 Mg Capsule 1 TAB PO BID for 7 Days, #14 CAP Prov: DEMETRIO KAY 01/26/19 DEMETRIO KAY Jan 26, 2019 20:53
--- NOTE | 2019-01-26 21:00 | NUR ---
labs and ua and strep to lab by me
[2019-01-26 21:05] LABS: BASOPHILS % (AUTO) 0 % (0-10); EOSINOPHILS # (AUTO) 0.3 10^3/uL (0.0-0.3); EOSINOPHILS % (AUTO) 3 % (0-10); HEMATOCRIT 38 % (35-52); HEMOGLOBIN 12.2 G/DL (11.5-16.0); LYMPHOCYTES # (AUTO) 2.8 X 10^3 (1.0-4.0); LYMPHOCYTES % (AUTO) 28 % (12-44); MEAN CORPUSCULAR HEMOGLOBIN 26 PG (25-34); MEAN CORPUSCULAR HGB CONC 32 G/DL (32-36); MEAN CORPUSCULAR VOLUME 81 FL (80-99); MONOCYTES # (AUTO) 0.5 X 10^3 (0.0-1.0); MONOCYTES % (AUTO) 5 % (0-12); NEUTROPHILS # (AUTO) 6.7 X 10^3 (1.8-7.8); NEUTROPHILS % (AUTO) 65 % (42-75); PLATELET COUNT 291 10^3/uL (130-400); RED CELL DISTRIBUTION WIDTH 14.9 % (10.0-14.5); WHITE BLOOD COUNT 10.2 10^3/uL (4.3-11.0)
[2019-01-26 21:05] LABS: BILIRUBIN,URINE NEGATIVE (NEGATIVE); COLOR,URINE YELLOW; GLUCOSE, URINE (UA) NEGATIVE (NEGATIVE); KETONES,URINE NEGATIVE (NEGATIVE); LEUKOCYTE ESTERASE ,URINE NEGATIVE (NEGATIVE); NITRITE,URINE NEGATIVE (NEGATIVE); PH,URINE 5 (5-9); PROTEIN,URINE 1+ (NEGATIVE); UROBILINOGEN,URINE NORMAL (NORMAL)
[2019-01-26 21:12] LABS: BACTERIA,URINE MODERATE /HPF; CLARITY,URINE SL CLOUDY; WBC,URINE 0-2 /HPF
[2019-01-26 21:25] LABS: ALANINE AMINOTRANSFERASE 31 U/L (0-55); ALBUMIN 4.1 GM/DL (3.2-4.5); ALKALINE PHOSPHATASE 78 U/L (40-136); BILIRUBIN,TOTAL 0.3 MG/DL (0.1-1.0); BUN/CREATININE RATIO 15; CALCIUM 9.7 MG/DL (8.5-10.1); CARBON DIOXIDE 21 MMOL/L (21-32); CHLORIDE 106 MMOL/L (98-107); CREATININE SERUM 0.92 MG/DL (0.60-1.30); GFR ESTIMATED > 60; GLUCOSE 90 MG/DL (70-105); LIPASE 41 U/L (8-78); POTASSIUM 3.9 MMOL/L (3.6-5.0); SODIUM 140 MMOL/L (135-145); TOTAL PROTEIN 7.9 GM/DL (6.4-8.2)
[2019-01-26] MEDS ORDERED: NITR-65 PO (21:40)
[2019-01-26] MEDS ORDERED: NITROFURANTOIN 100 MG (MACROBID) CAPSULE PO ONE (21:45)
[2019-01-26 22:04] VITALS: BP 112/74
--- NOTE | 2019-01-26 22:04 | NUR ---
d/c instructions to pt. told to read all papers. scripts faxed. pt left ambulatory by self. pt knows f/u. i went over the handtyped by information on the chart. iv d/cd by me prior to d/c.
== END 2019-01-26 22:04 | disposition home or self-care (01) ==
LOC: EDUNIT# 19:07 → ER 19:08
DX: J02.9 Acute pharyngitis, unspecified (principal); N39.0 Urinary tract infection, site not specified; R10.9 Unspecified abdominal pain; J45.909 Unspecified asthma, uncomplicated; I10 Essential (primary) hypertension; G43.909 Migraine, unspecified, not intractable, without status migrainosus; E66.9 Obesity, unspecified; K86.1 Other chronic pancreatitis; F41.9 Anxiety disorder, unspecified; F32.9 Major depressive disorder, single episode, unspecified; Z85.528 Personal history of other malignant neoplasm of kidney; Z86.010 Personal history of colon polyps; Z87.442 Personal history of urinary calculi; Z88.8 Allergy status to other drugs, medicaments and biological substances; Z88.6 Allergy status to analgesic agent; Z88.0 Allergy status to penicillin; Z88.1 Allergy status to other antibiotic agents; Z90.49 Acquired absence of other specified parts of digestive tract; Z90.710 Acquired absence of both cervix and uterus; Z90.89 Acquired absence of other organs; Z82.49 Family history of ischemic heart disease and other diseases of the circulatory system
CPT/HCPCS: 36415; 80053; 81000; 83690; 85025; 87088; 87430

== ENCOUNTER 2019-01-31 04:37 | Emergency (ER) | payer MEDICARE, MEDICAID ==
[~2019-01-31] VITALS: Ht 160 cm; Wt 116.1 kg
[2019-01-31] MEDS ORDERED: LIDOCAINE 1% INJ 20 ML 20 ML VIAL INJ ONE (05:15)
[2019-01-31] MEDS ORDERED: methylPREDNISolone 125 MG (Solu-MEDROL) VIAL IM ONE (05:15)
[2019-01-31] MEDS ORDERED: cefTRIAXone 1,000 MG/2.86 ml vial (IM ONLY) IM SCH (05:15)
[2019-01-31] MEDS ORDERED: GUAI1TBM19 PO (05:17)
[2019-01-31] MEDS ORDERED: METH4TAB PO (05:17)
[2019-01-31] MEDS ORDERED: CEFP500T4 PO (05:17)
[2019-01-31] MEDS ORDERED: BENZ100C18 PO (05:17)
--- NOTE | 2019-01-31 05:17 | ED Cough/URI ---
General Chief Complaint: Cough/Cold/Flu Symptoms Stated Complaint: CONGESTION,FEVER,COUGH Nursing Triage Note: AMBULATORY TO ED ROOM 6 WITH C/O SORE THROAT SINCE SATURDAY, WELL CONGESTION, TROUBLE BREATHING, HEADACHE, AND CONSTANT FEVERS OF 104. TOOK TYLENOL AT 0430. SEEN IN ER 01/26/19 FOR SORE THROAT AND SEEN [facility] 01/28/19 FOR SAME CONCERNS AND TOLD TO TAKE AN OTC MED SHE CANNOT NAME AND DO BREATHING TX. PT STATES SHE HAS FOLLOWED ALL DIRECTIONS FROM PREVIOUS ER AND [facility] VISITS AND STILL HAS SAME COMPLAINTS. Sepsis Screen: No Definite Risk Source: patient, old records History of Present Illness Date Seen by Provider: Jan 31, 2019 Time Seen by Provider: 05:00 Initial Comments PT ARRIVES VIA POV FROM HOME C/O SORE THROAT SINCE Saturday01/26/19 STATES IT HURTS TO SWALLOW OR COUGH, BUT NO PROBLEMS HANDLING SECRETIONS AND IS ABLE TO EAT AND DRINK, BUT CAUSES PAIN TO SWALLOW. STATES SHE HAS HAD A NON-PRODUCTIVE COUGH, AND CONGESTION WELL NO SINUS PAIN OR DRAINAGE STATES SHE BEGAN RUNNING FEVER LAST PM--WAS "104" --TOOK 2 TYLENOL AT 0330 TODAY ( TOLD RN 0430) , AND FEVER IS DOWN C/O "SHORTNESS OF BREATH" ALSO C/O HEADACHE --PT HAS CHRONIC HEADACHE COMPLAINTS PT WAS SEEN HERE 01/26/19 FOR THIS PROBLEM--ALSO WANTED TO BE SEEN FOR HER CHRONIC ABDOMINAL PAIN AND NAUSEA WELL--LAB WAS DONE AND STREP TEST WAS DONE WHICH WAS NEGATIVE. 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 NO TESTS DONE, NO RX PT STATES SHE USED NEBULIZER WITHOUT IMPROVEMENT IN SORE THROAT. NO SICK CONTACTS. PT WITH A MULTITUDE OF VISITS--VARIOUS PAIN COMPLAINTS, AND MANY FOR CHRONIC ABDOMINAL PAIN, NAUSEA AND GI COMPLAINTS. PT HAS HAD 20 VISITS IN 2019, IN ADDITION TO MULTIPLE OUTPATIENT PROCEDURES/TESTS HERE 11/15, 12/10, 01/07 FOR CHRONIC ABDOMINAL / GI COMPLAINTS, AND 01/10 FOR LEFT LEG PAIN. IN ADDITION TO VISIT ON 01/26. PCP: [facility] Allergies and Home Medications Allergies Coded Allergies: fentanyl (Verified Allergy, Unknown, 10/16/18) meperidine (Verified Allergy, Unknown, 10/16/18) penicillin G (Verified Allergy, Unknown, 10/16/18) vancomycin (Unverified Adverse Reaction, Intermediate, severe itching, 10/16/18) Home Medications Benzonatate 100 Mg Capsule, 1-2 TAB PO TID Prescribed by: YAN CHAPARRO on 01/31/19516 Cefprozil 500 Mg Tablet, 500 MG PO BID Prescribed by: YAN CHAPARRO on 01/31/19516 Cyanocobalamin 1,000 Mcg/Ml Inj, 1,000 MCG IJ MONTHLY, (Reported) Estradiol 1 Mg Tablet, 1 MG PO HS, (Reported) Guaifenesin/Dextromethorphan 1 Each Tbmp.12hr, 1 EACH PO BID Prescribed by: YAN CHAPARRO on 01/31/19516 Hydrocodone/Acetaminophen 1 Each Tablet, 1 EA PO Q6HR PRN for PAIN-MODERATE Prescribed by: LINDSEY MARROQUIN on 10/23/18 1307 Methylprednisolone 4 Mg Tab.ds.pk, 4 MG PO UD Prescribed by: YAN CHAPARRO on 01/31/19516 Metoprolol Succinate 25 Mg Tab.er.24h, 25 MG PO HS, (Reported) Nitrofurantoin Monohyd/M-Cryst 100 Mg Capsule, 1 TAB PO BID Prescribed by: DEMETRIO KAY on 01/26/19 2140 Omeprazole 40 Mg Capsule.dr, 40 MG PO DAILY, (Reported) Ondansetron 8 Mg Tab.rapdis, 8 MG PO BID PRN for NAUSEA/VOMITING-1ST LINE, (Reported) Promethazine HCl 25 Mg Tablet, 25 MG PO Q6H PRN for NAUSEA/VOMITING Prescribed by: DEMETRIO KAY on 11/15/18 1639 Ropinirole HCl 4 Mg Tablet, 4 MG PO HS, (Reported) Sertraline HCl 50 Mg Tablet, 50 MG PO HS, (Reported) Tizanidine HCl 4 Mg Tablet, 4 MG PO TID PRN for MUSCLE SPASMS, (Reported) Patient Home Medication List Home Medication List Reviewed: Yes Review of Systems Review of Systems Constitutional: see HPI, fever EENTM: see HPI, throat pain; No ear pain, No mouth pain, No nose congestion, No throat swelling Respiratory: see HPI, cough; No phlegm Cardiovascular: no symptoms reported Gastrointestinal: no symptoms reported Genitourinary: no symptoms reported Musculoskeletal: no symptoms reported Psychiatric/Neurological: See HPI, Headache Hematologic/Lymphatic: No Symptoms Reported Immunological/Allergic: no symptoms reported Past Gypzpev-Jqnyum-Juqhln Hx Patient Social History Alcohol Use: Denies Use Recreational Drug Use: No Smoking Status: Current Everyday Smoker Type Used: Cigarettes 2nd Hand Smoke Exposure: No Recent Foreign Travel: No Contact w/Someone Who Travel: No Recent Infectious Disease Expo: No Recent Hopitalizations: Yes (10/22/18 ABD SX) Physical Abuse: No Sexual Abuse: No Mistreated: No Fear: No Immunizations Up To Date Tetanus Booster (TDap): Unknown PED Vaccines UTD: No Date of Pneumonia Vaccine: May 17, 2012 Date of Influenza Vaccine: Jul 03, 2012 Seasonal Allergies Seasonal Allergies: Yes (MILD) Past Medical History Surgeries: Yes (RIGHT KNEE SCOPE X 5; LEFT KNEE SCOPE X 2; NASAL FX REPAIR; COCCYX REMOVAL; LEFT NEPHRECTOMY; LEFT MID ABDOMEN INCISIONAL HERNIA REPAIR; DRAINAGE OF ABDOMINAL WALL ABSCESS; EGD'S AND COLONOSCOPIES) Abdominal, Adenoidectomy, Appendectomy, Gallbladder, 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, Nephrectomy, Orthopedic, Tonsillectomy Respiratory: Yes Asthma Currently Using CPAP: No Currently Using BIPAP: No Cardiac: Yes Hypertension Neurological: Yes (RESTLESS LEG SYNDROME) Headaches /Migraines 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: Yes (HX ENDOMETRIOSIS ) 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: 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 Sexually Transmitted Disease: No HIV/AIDS: No Genitourinary: Yes (L KIDNEY REMOVED FOR TUMOR-MALIGNANT;) UTI-Chronic Gastrointestinal: Yes (ENLARGED AND FATTY LIVER; LEFT MID ABDOMEN HERNIA/REPAIRED; LEFT ABDOMINAL WALL ABSCESS DRAINED) Abdominal Hernia, Liver Disease/Jaundice, Pancreatitis, Polyps Musculoskeletal: Yes (COCCYX-REMOVED; MULTIPLE KNEE SURGERIES, ) Chronic Back Pain Endocrine: Yes (CHRONIC PANCREATITIS; OBESITY) HEENT: No Loss of Vision: Denies Hearing Impairment: Denies Cancer: Yes Kidney Did You Recieve Any Treatments: Yes (LEFT NEPHRECTOMY) What Type of Treatment Did You: Surgical Intervention Psychosocial: Yes Anxiety, Depression Integumentary: Yes Herpes Blood Disorders: No Adverse Reaction/Blood Tranf: No (N/A) Family Medical History Cardiovascular disease 19 FATHER Completed stroke 19 FATHER Diabetes mellitus 19 FATHER Hypercholesterolemia 19 FATHER 19 MOTHER Hypertension 19 FATHER 19 MOTHER Neoplasm 19 MOTHER Psychosocial problem 19 FATHER 19 MOTHER No Pertinent Family Hx, Cancer, Diabetes, Hypertension Physical Exam Vital Signs - First Documented 01/31/19 01/31/19 04:57 05:35 Temp 97.8 Pulse 81 Resp 16 B/P (MAP) 122/83 (96) Pulse Ox 100 O2 Delivery Room Air Capillary Refill : Less Than 3 Seconds Height: 5'3.00" Weight: 256lbs. 0oz. 116.376666ye; 47.6 BMI Method:Stated General Appearance: WD/WN, no apparent distress, obese, other (OCCASIONAL HARSH, FORCED COUGH--ONLY OCCURS WHEN STAFF IS IN ROOM. ) HEENT: PERRL/EOMI, normal ENT inspection, pharynx normal (NO ERYTHEMA, SWELLING OR EXUDATE. NO POST NASAL DRAINAGE OR ERYTHEMA OR SWELLING. NO SINUS TENDERNESS OR NASAL CONGESTION ), TM abnormal (R) (SLIGHTLY INJECTED), other (ORAL MUCOSA MOIST, NO PROBLEMS HANDLILNG SECRETIONS. 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, no motor/sensory deficits, alert, oriented x 3 Skin: normal color, warm/dry Progress/Results/Core Measures Suspected Sepsis Recent Fever Within 48 Hours: Yes Infection Criteria Present: Suspected New Infection New/Unexplained Altered Menta: No Sepsis Screen: No Definite Risk SIRS Temperature:97.8 Pulse: 81 Respiratory Rate: 16 Blood Pressure 122 /83 Mean: 96 Results/Orders My Orders Orders - YAN CHAPARRO DO Ceftriaxone For Im Use (Rocephin For Im (01/31/19 05:15) Methylprednisolone Sod Succ (Solu-Medrol (01/31/19 05:15) Lidocaine 1% Inj 20 Ml (Xylocaine 1% Inj (01/31/19 05:15) Medications Given in ED Current Medications Medications Dose Ordered Sig/Neal Route Start Time Stop Time Status Last Admin Dose Admin Lidocaine HCl 2.1 ml ONCE ONCE INJ 01/31/19 05:15 01/31/19 05:16 DC 01/31/19 05:26 2.1 ML Methylprednisolone Sodium Succinate 125 mg ONCE ONCE IM 01/31/19 05:15 01/31/19 05:16 DC 01/31/19 05:25 125 MG Vital Signs/I&O 01/31/19 01/31/19 04:57 05:35 Temp 97.8 97.8 Pulse 81 78 Resp 16 18 B/P (MAP) 122/83 (96) 121/85 (97) Pulse Ox 100 O2 Delivery Room Air Capillary Refill : Less Than 3 Seconds Blood Pressure Mean: 96 Departure Impression Primary Impression: Cough Additional Impression: Sore throat Disposition: HOME, SELF-CARE Condition: Stable Departure-Patient Inst. Referrals: CARMEN GIBBS MD (PCP/Family) Primary Care Physician Patient Instructions: Cough, Adult (DC), Cough, Runny Nose, and the Common Cold (DC), Sore Throat, Adult (DC) Add. Discharge Instructions: CONTINUE YOUR REGULAR MEDICATIONS PRESCRIBED TYLENOL NEEDED FOR PAIN OR FEVER OVER 101 FOLLOW UP WITH [facility] IN 2-3 DAYS FOR FURTHER CARE All discharge instructions reviewed with patient and/or family. Voiced understanding. Scripts Guaifenesin/Dextromethorphan (Mucinex Dm ER 1,200-60 mg Tab) 1 Each Tbmp.12hr 1 EACH PO BID for 10 Days, #20 EA Prov: YAN CHAPARRO DO 01/31/19 Benzonatate (TESSALON PERLES) 100 Mg Capsule 1-2 TAB PO TID for Cough, #30 CAP Prov: YAN CHAPARRO DO 01/31/19 Methylprednisolone (Medrol) 4 Mg Tab.ds.pk 4 MG PO UD, #1 PKG Prov: YAN CHAPARRO DO 01/31/19 Cefprozil (Cefprozil) 500 Mg Tablet 500 MG PO BID, #20 TAB Prov: YAN CHAPARRO DO 01/31/19 YAN CHAPARRO DO Jan 31, 2019 05:17
[2019-01-31 05:35] VITALS: BP 121/85
== END 2019-01-31 05:36 | disposition home or self-care (01) ==
LOC: EDUNIT# 04:37 → ER 04:40
DX: J02.9 Acute pharyngitis, unspecified (principal); J45.909 Unspecified asthma, uncomplicated; I10 Essential (primary) hypertension; G43.909 Migraine, unspecified, not intractable, without status migrainosus; E66.9 Obesity, unspecified; K86.1 Other chronic pancreatitis; F41.9 Anxiety disorder, unspecified; F32.9 Major depressive disorder, single episode, unspecified; F17.210 Nicotine dependence, cigarettes, uncomplicated; Z85.528 Personal history of other malignant neoplasm of kidney; Z86.010 Personal history of colon polyps; Z87.440 Personal history of urinary (tract) infections; Z88.1 Allergy status to other antibiotic agents; Z88.0 Allergy status to penicillin; Z88.5 Allergy status to narcotic agent; Z90.49 Acquired absence of other specified parts of digestive tract; Z90.710 Acquired absence of both cervix and uterus; Z90.89 Acquired absence of other organs; Z82.49 Family history of ischemic heart disease and other diseases of the circulatory system; Z68.42 Body mass index [BMI] 45.0-49.9, adult
CPT/HCPCS: 96372; 99284

== ENCOUNTER 2019-02-11 16:29 | Emergency (ER) | payer MEDICARE, MEDICAID ==
[~2019-02-11] VITALS: Ht 160 cm; Wt 111.6 kg
[~2019-02-11 16:29] MED LIST changes: +BENZ100C18 PO; +GUAI1TBM19 PO; +METH4TAB PO
--- NOTE | 2019-02-11 17:56 | NUR ---
now states that the pain is in left groin and left lower abd. states she has dry heaved today and pain this a constant throb. States is feels like when she got her first hernia. When she lays on her side, she feel like something is in there. Thinks it is her kidney
[2019-02-11 18:12] LABS: BILIRUBIN,URINE NEGATIVE (NEGATIVE); CLARITY,URINE SLIGHTLY CLOUDY; COLOR,URINE YELLOW; GLUCOSE, URINE (UA) NEGATIVE (NEGATIVE); KETONES,URINE NEGATIVE (NEGATIVE); LEUKOCYTE ESTERASE ,URINE NEGATIVE (NEGATIVE); NITRITE,URINE NEGATIVE (NEGATIVE); PH,URINE 5 (5-9); PROTEIN,URINE 1+ (NEGATIVE); UROBILINOGEN,URINE NORMAL (NORMAL)
[2019-02-11 18:19] LABS: BACTERIA,URINE MODERATE /HPF
[2019-02-11] MEDS ORDERED: DICYCLOMINE 10 MG (BENTYL) CAP PO STA (18:21)
[2019-02-11 18:25] LABS: AMPHETAMINE SCREEN, URINE NEGATIVE (NEGATIVE); BARBITURATE SCREEN URINE NEGATIVE (NEGATIVE); BENZODIAZEPINES SCREEN URINE NEGATIVE (NEGATIVE); CANNABINOID SCREEN, URINE NEGATIVE (NEGATIVE); COCAINE SCREEN URINE NEGATIVE (NEGATIVE); METHADONE STAT NEGATIVE (NEGATIVE); METHAMPHETAMINE SCREEN URINE S NEGATIVE (NEGATIVE); OPIATE SCREEN URINE NEGATIVE (NEGATIVE); OXYCODONE STAT NEGATIVE (NEGATIVE); PROPOXYPHENE STAT NEGATIVE (NEGATIVE); TRICYCLIC ANTIDEPRESSANTS SCRE NEGATIVE (NEGATIVE)
--- NOTE | 2019-02-11 18:48 | ED GI ---
General Chief Complaint: Abdominal/GI Problems Stated Complaint: ABD PAIN Nursing Triage Note: CHRONIC L SIDE PAIN POST KIDNEY SURG AND HERNIA. HAS MESH IN AREA. PAIN IS WORSE THAN PAST Sepsis Screen: No Definite Risk History of Present Illness Date Seen by Provider: Feb 11, 2019 Time Seen by Provider: 17:00 Initial Comments 33 year old female, very familiar to this Emergency Department returns with continued left lower quadrant pain. She had 8 CTs abd/pelvis since October 2017. Last one being in November 2018, with no acute findings. She has tried to get in with Dr. Marroquin and was told it would be late Feb. she's been taking Zofran and hydrocodone for nausea and pain. She has an appointment next week with her pa ncreatic specialist and an appointment in early March with her cancer center. Timing/Duration: Intermittent Severity/Quality: Dull, Throbbing Location: LLQ Radiation: No Radiation Activities at Onset: None Associated Symptoms: Nausea/Vomiting Allergies and Home Medications Allergies Coded Allergies: fentanyl (Verified Allergy, Unknown, 10/16/18) meperidine (Verified Allergy, Unknown, 10/16/18) penicillin G (Verified Allergy, Unknown, 10/16/18) vancomycin (Unverified Adverse Reaction, Intermediate, severe itching, 10/16/18) Home Medications Benzonatate 100 Mg Capsule, 1-2 TAB PO TID Prescribed by: YAN CHAPARRO on 01/31/19516 Cefprozil 500 Mg Tablet, 500 MG PO BID Prescribed by: YAN CHAPARRO on 01/31/19516 Cyanocobalamin 1,000 Mcg/Ml Inj, 1,000 MCG IJ MONTHLY, (Reported) Estradiol 1 Mg Tablet, 1 MG PO HS, (Reported) Guaifenesin/Dextromethorphan 1 Each Tbmp.12hr, 1 EACH PO BID Prescribed by: YAN CHAPARRO on 01/31/19516 Hydrocodone/Acetaminophen 1 Each Tablet, 1 EA PO Q6HR PRN for PAIN-MODERATE Prescribed by: LINDSEY MARROQUIN on 10/23/18 1307 Methylprednisolone 4 Mg Tab.ds.pk, 4 MG PO UD Prescribed by: YAN CHAPARRO on 01/31/19516 Metoprolol Succinate 25 Mg Tab.er.24h, 25 MG PO HS, (Reported) Nitrofurantoin Monohyd/M-Cryst 100 Mg Capsule, 1 TAB PO BID Prescribed by: DEMETRIO KAY on 01/26/19 2140 Omeprazole 40 Mg Capsule.dr, 40 MG PO DAILY, (Reported) Ondansetron 8 Mg Tab.rapdis, 8 MG PO BID PRN for NAUSEA/VOMITING-1ST LINE, (Reported) Promethazine HCl 25 Mg Tablet, 25 MG PO Q6H PRN for NAUSEA/VOMITING Prescribed by: DEMETRIO KAY on 11/15/18 1639 Ropinirole HCl 4 Mg Tablet, 4 MG PO HS, (Reported) Sertraline HCl 50 Mg Tablet, 50 MG PO HS, (Reported) Tizanidine HCl 4 Mg Tablet, 4 MG PO TID PRN for MUSCLE SPASMS, (Reported) Patient Home Medication List Home Medication List Reviewed: Yes Review of Systems Review of Systems Constitutional: no symptoms reported, see HPI Gastrointestinal: See HPI, Abdominal Pain; Denies Constipated, Denies Diarrhea, Denies Difficulty Swallowing; Nausea; Denies Poor Appetite, Denies Poor Fluid Intake, Denies Rectal Bleeding, Denies Vomiting All Other Systems Reviewed Negative Unless Noted: Yes Past Bvczove-Ynzzuw-Abclzm Hx Past Med/Social Hx: Reviewed Nursing Past Med/Soc Hx Patient Social History Alcohol Use: Denies Use Recreational Drug Use: No Smoking Status: Never a Smoker Type Used: Cigarettes 2nd Hand Smoke Exposure: No Recent Foreign Travel: No Contact w/Someone Who Travel: No Recent Infectious Disease Expo: No Recent Hopitalizations: Yes (10/22/18 ABD SX) Physical Abuse: No Sexual Abuse: No Mistreated: No Fear: No Immunizations Up To Date Tetanus Booster (TDap): Unknown PED Vaccines UTD: No Date of Pneumonia Vaccine: May 17, 2012 Date of Influenza Vaccine: Jul 03, 2012 Seasonal Allergies Seasonal Allergies: Yes (MILD) Past Medical History Surgeries: Yes Abdominal, Adenoidectomy, Appendectomy, Gallbladder, 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, Nephrectomy, Orthopedic, Tonsillectomy Respiratory: Yes Asthma Currently Using CPAP: No Currently Using BIPAP: No Cardiac: Yes Hypertension Neurological: Yes (RESTLESS LEG SYNDROME) Headaches /Migraines 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: Yes (HX ENDOMETRIOSIS ) 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 Sexually Transmitted Disease: No HIV/AIDS: No Genitourinary: Yes (L KIDNEY REMOVED FOR TUMOR-MALIGNANT;) UTI-Chronic Gastrointestinal: Yes Abdominal Hernia, Liver Disease/Jaundice, Pancreatitis, Polyps Musculoskeletal: Yes (COCCYX-REMOVED; MULTIPLE KNEE SURGERIES, ) Chronic Back Pain Endocrine: Yes (CHRONIC PANCREATITIS; OBESITY) HEENT: No Loss of Vision: Denies Hearing Impairment: Denies Cancer: Yes Kidney Did You Recieve Any Treatments: Yes What Type of Treatment Did You: Surgical Intervention Psychosocial: Yes Anxiety, Depression Integumentary: Yes Herpes Blood Disorders: No Adverse Reaction/Blood Tranf: No (N/A) Family Medical History Cardiovascular disease 19 FATHER Completed stroke 19 FATHER Diabetes mellitus 19 FATHER Hypercholesterolemia 19 FATHER 19 MOTHER Hypertension 19 FATHER 19 MOTHER Neoplasm 19 MOTHER Psychosocial problem 19 FATHER 19 MOTHER No Pertinent Family Hx, Cancer, Diabetes, Hypertension Physical Exam Vital Signs Vital Signs - First Documented 02/11/19 16:33 Temp 98.3 Pulse 88 Resp 18 B/P (MAP) 118/85 (96) Pulse Ox 98 O2 Delivery Room Air Capillary Refill : Less Than 3 Seconds Height/Weight/BMI Height: 5'3.00" Weight: 246lbs. 0oz. 111.940670lf; 47.6 BMI Method:Stated General Appearance: WD/WN, no apparent distress, obese HEENT: PERRL/EOMI, normal ENT inspection, TMs normal, pharynx normal Neck: non-tender, full range of motion, supple, normal inspection Respiratory: chest non-tender, lungs clear, normal breath sounds Cardiovascular: normal peripheral pulses, regular rate, rhythm, no murmur Gastrointestinal: normal bowel sounds, soft, distended; No guarding, No rebound; tenderness (left lower quadrant); No hernia, No mass Neurologic/Psychiatric: no motor/sensory deficits, alert, normal mood/affect, oriented x 3 Skin: normal color, warm/dry Lymphatic: no adenopathy Progress/Results/Core Measures Results/Orders Lab Results Laboratory Tests Test 02/11/19 17:30 02/11/19 17:50 Range/Units Urine Opiates Screen NEGATIVE NEGATIVE Urine Oxycodone Screen NEGATIVE NEGATIVE Urine Methadone Screen NEGATIVE NEGATIVE Urine Propoxyphene Screen NEGATIVE NEGATIVE Urine Barbiturates Screen NEGATIVE NEGATIVE Ur Tricyclic Antidepressants Screen NEGATIVE NEGATIVE Urine Phencyclidine Screen NEGATIVE NEGATIVE Urine Amphetamines Screen NEGATIVE NEGATIVE Urine Methamphetamines Screen NEGATIVE NEGATIVE Urine Benzodiazepines Screen NEGATIVE NEGATIVE Urine Cocaine Screen NEGATIVE NEGATIVE Urine Cannabinoids Screen NEGATIVE NEGATIVE Urine Color YELLOW Urine Clarity SLIGHTLY CLOUDY Urine pH 5 5-9 Urine Specific [place] 1.025 H 1.016-1.022 Urine Protein 1+ H NEGATIVE Urine Glucose (UA) NEGATIVE NEGATIVE Urine Ketones NEGATIVE NEGATIVE Urine Nitrite NEGATIVE NEGATIVE Urine Bilirubin NEGATIVE NEGATIVE Urine Urobilinogen NORMAL NORMAL MG/DL Urine Leukocyte Esterase NEGATIVE NEGATIVE Urine RBC (Auto) NEGATIVE NEGATIVE Urine RBC NONE /HPF Urine WBC NONE /HPF Urine Squamous Epithelial Cells 10-25 H /HPF Urine Crystals NONE /LPF Urine Bacteria MODERATE H /HPF Urine Casts NONE /LPF Urine Mucus NEGATIVE /LPF Urine Culture Indicated NO My Orders Orders - GEOVANI HERNANDEZ Ua Culture If Indicated (02/11/19 16:35) Urine Bedside (02/11/19 16:35) Drug Screen Stat (Urine) (02/11/19 18:05) Dicyclomine Capsule (Bentyl Capsule) (02/11/19 18:21) Ct Abdomen/Pelvis Wo (02/11/19 19:21) Hydrocodone/Apap 7.5/325 Tab (Lortab 7. (02/11/19 19:30) Medications Given in ED Current Medications Medications Dose Ordered Sig/Neal Route Start Time Stop Time Status Last Admin Dose Admin Acetaminophen/ Hydrocodone Bitart 1 ea ONCE ONCE PO 02/11/19 19:30 02/11/19 19:31 DC 02/11/19 19:52 1 EA Vital Signs/I&O 02/11/19 02/11/19 16:33 20:21 Temp 98.3 Pulse 88 68 Resp 18 18 B/P (MAP) 118/85 (96) 114/68 (83) Pulse Ox 98 99 O2 Delivery Room Air 2 Blood Pressure Mean: 96 Progress Progress Note : Time: 17:00 Progress Note Patient seen and evaluated, will give Bentyl 20 mg orally and check UA. 174 patient tearful and reports little to no improvement in symptoms since taking the Bentyl. Risks vs benefits of CT reviewed with her in depth, in light of her multiple radiation exposures. She desires to proceed with the CT. Will get hydrocodone 7.5 mg for pain. [address], patient does report some improvement in her pain since taking the hydrocodone. 1899 CT results reviewed with the patient. Discharge instructions and return precautions reviewed with her. Diagnostic Imaging Diagonstic Imaging: CT Plain Films/CT/US/NM/MRI: abdomen, pelvis Comments NAME: [facility]N [facility] REC#: [id number] PT STATUS: REG ER : 1985 PHYSICIAN: GEOVANI HERNANDEZ ADMIT DATE: 02/11/19/ER Draft Date of Exam:02/11/19 CT ABDOMEN/PELVIS WO PROCEDURE: CT abdomen and pelvis without contrast. TECHNIQUE: Multiple contiguous axial images were obtained through the abdomen and pelvis without the use of intravenous contrast. Auto Exposure Controls were utilized during the CT exam to meet ALARA standards for radiation dose reduction. INDICATION: Left lower quadrant pain. Prior left nephrectomy and hernia repair. COMPARISON: CT abdomen and pelvis of 11/18/2018. FINDINGS: Evaluation of the abdominal viscera is mildly limited without contrast. Lower chest: The lung bases are clear. No pericardial or pleural effusion. Peritoneum: No free intraperitoneal air or fluid. Liver and biliary system: Stable enlargement of the liver measuring approximately 22 cm in length. No focal hepatic lesion. Hypoattenuation of the liver is indicative of diffuse hepatic steatosis. Cholecystectomy. No pathologic biliary duct dilatation. Spleen and Pancreas: Spleen is normal. Unenhanced pancreas is grossly normal. Adrenals: Normal. tract: No right-sided renal or ureteral calculi. Left nephrectomy. No soft tissue mass within the nephrectomy bed. Urinary bladder is partially filled without wall thickening. 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. No adnexal mass. GI tract: Stomach is partially filled with fluid and there is no wall thickening. No bowel obstruction. No pericolonic inflammatory changes. Appendectomy. Vasculature and Lymph nodes: Normal caliber aorta. No abdominal or pelvic lymphadenopathy. Musculoskeletal: No concerning osseous lesion. Stable subcutaneous stranding in the lateral aspect of the abdomen compatible with scar from prior hernia surgery. No loculated fluid collection to indicate a drainable abscess. IMPRESSION: 1. No acute inflammatory or obstructive process in the abdomen or pelvis. Specifically, no diverticulitis or colitis. 2. No recurrent hernia. 3. Stable hepatomegaly and diffuse hepatic steatosis. Dictated on workstation # [id number] Reviewed: Reviewed by Me Departure Impression Primary Impression: Pain, abdominal, LLQ Disposition: 01 HOME, SELF-CARE Condition: Improved Departure-Patient Inst. Decision time for Depature: 20:00 Referrals: CARMEN GIBBS MD (PCP/Family) Primary Care Physician Patient Instructions: Acute Abdomen (Belly Pain), Adult (DC) Add. Discharge Instructions: [place] diet. Follow-up at Dr. Marroquin's. Continue her home medications. Return to emergency department for fever greater than 101 with associated abdominal pain Or new urgent health care needs. All discharge instructions reviewed with patient and/or family. Voiced understanding. Copy Copies To 1: LINDSEY MARROQUIN AMY ARNP Feb 11, 2019 18:48
[2019-02-11] MEDS ORDERED: HYDROcodone/APAP 7.5 MG/325 MG (LORTAB, LORCET PLUS) TABLET PO ONE (19:30)
--- NOTE | 2019-02-11 19:58 | Diagnostic Imaging Report ---
PROCEDURE: CT abdomen and pelvis without contrast. TECHNIQUE: Multiple contiguous axial images were obtained through the abdomen and pelvis without the use of intravenous contrast. Auto Exposure Controls were utilized during the CT exam to meet ALARA standards for radiation dose reduction. INDICATION: Left lower quadrant pain. Prior left nephrectomy and hernia repair. COMPARISON: CT abdomen and pelvis of 11/18/2018. FINDINGS: Evaluation of the abdominal viscera is mildly limited without contrast. Lower chest: The lung bases are clear. No pericardial or pleural effusion. Peritoneum: No free intraperitoneal air or fluid. Liver and biliary system: Stable enlargement of the liver measuring approximately 22 cm in length. No focal hepatic lesion. Hypoattenuation of the liver is indicative of diffuse hepatic steatosis. Cholecystectomy. No pathologic biliary duct dilatation. Spleen and Pancreas: Spleen is normal. Unenhanced pancreas is grossly normal. Adrenals: Normal. tract: No right-sided renal or ureteral calculi. Left nephrectomy. No soft tissue mass within the nephrectomy bed. Urinary bladder is partially filled without wall thickening. 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. No adnexal mass. GI tract: Stomach is partially filled with fluid and there is no wall thickening. No bowel obstruction. No pericolonic inflammatory changes. Appendectomy. Vasculature and Lymph nodes: Normal caliber aorta. No abdominal or pelvic lymphadenopathy. Musculoskeletal: No concerning osseous lesion. Stable subcutaneous stranding in the lateral aspect of the abdomen compatible with scar from prior hernia surgery. No loculated fluid collection to indicate a drainable abscess. IMPRESSION: 1. No acute inflammatory or obstructive process in the abdomen or pelvis. Specifically, no diverticulitis or colitis. 2. No recurrent hernia. 3. Stable hepatomegaly and diffuse hepatic steatosis. Dictated by: Dictated on workstation # [id number]
[2019-02-11 20:21] VITALS: BP 114/68
== END 2019-02-11 20:21 | disposition home or self-care (01) ==
LOC: EDUNIT# 16:29 → ER 16:30
DX: R10.32 Left lower quadrant pain (principal); I10 Essential (primary) hypertension; J45.909 Unspecified asthma, uncomplicated; G43.909 Migraine, unspecified, not intractable, without status migrainosus; F41.9 Anxiety disorder, unspecified; F32.9 Major depressive disorder, single episode, unspecified; E66.9 Obesity, unspecified; Z87.440 Personal history of urinary (tract) infections; Z85.528 Personal history of other malignant neoplasm of kidney; Z98.890 Other specified postprocedural states; Z87.19 Personal history of other diseases of the digestive system; Z88.5 Allergy status to narcotic agent; Z88.0 Allergy status to penicillin; Z88.1 Allergy status to other antibiotic agents; Z79.52 Long term (current) use of systemic steroids; Z90.89 Acquired absence of other organs; Z90.49 Acquired absence of other specified parts of digestive tract; Z90.710 Acquired absence of both cervix and uterus; Z90.5 Acquired absence of kidney; Z82.49 Family history of ischemic heart disease and other diseases of the circulatory system
CPT/HCPCS: 74176; 80306; 81000

== ENCOUNTER 2019-02-17 21:38 | Outpatient (CLI) | payer MEDICARE, MEDICAID | END 2019-02-18 06:14 | disposition home or self-care (01) | LOC: SLEEP 21:38 | PROVIDERS: ATTEND Family Medicine | DX: G47.30 Sleep apnea, unspecified (principal) | CPT/HCPCS: 95810 ==

== ENCOUNTER 2019-03-06 19:44 | Emergency (ER) | payer MEDICARE, MEDICAID ==
[~2019-03-06] VITALS: Ht 160 cm; Wt 115.7 kg
--- NOTE | 2019-03-06 20:00 | ED Abdominal Pain ---
General Chief Complaint: Abdominal/GI Problems Stated Complaint: RT SIDE PAIN Source of Information: Patient Exam Limitations: No Limitations History of Present Illness Date Seen by Provider: Mar 06, 2019 Time Seen by Provider: 19:59 Initial Comments To ER with right-sided abdominal pain since this morning. Timing/Duration: 4-6 Hours Severity/Quality: Moderate Radiation: No Radiation Activities at Onset: None Associated Symptoms: Denies Symptoms Allergies and Home Medications Allergies Coded Allergies: fentanyl (Verified Allergy, Unknown, 10/16/18) meperidine (Verified Allergy, Unknown, 10/16/18) penicillin G (Verified Allergy, Unknown, 10/16/18) vancomycin (Unverified Adverse Reaction, Intermediate, severe itching, 10/16/18) Home Medications Benzonatate 100 Mg Capsule, 1-2 TAB PO TID Prescribed by: YAN CHAPARRO on 01/31/19516 Cefprozil 500 Mg Tablet, 500 MG PO BID Prescribed by: YAN CHAPARRO on 01/31/19516 Cyanocobalamin 1,000 Mcg/Ml Inj, 1,000 MCG IJ MONTHLY, (Reported) Estradiol 1 Mg Tablet, 1 MG PO HS, (Reported) Guaifenesin/Dextromethorphan 1 Each Tbmp.12hr, 1 EACH PO BID Prescribed by: YAN CHAPARRO on 01/31/19516 Hydrocodone/Acetaminophen 1 Each Tablet, 1 EA PO Q6HR PRN for PAIN-MODERATE Prescribed by: LINDSEY MARROQUIN on 10/23/18 1307 Methylprednisolone 4 Mg Tab.ds.pk, 4 MG PO UD Prescribed by: YAN CHAPARRO on 01/31/19516 Metoprolol Succinate 25 Mg Tab.er.24h, 25 MG PO HS, (Reported) Nitrofurantoin Monohyd/M-Cryst 100 Mg Capsule, 1 TAB PO BID Prescribed by: DEMETRIO KAY on 01/26/19 2140 Omeprazole 40 Mg Capsule.dr, 40 MG PO DAILY, (Reported) Ondansetron 8 Mg Tab.rapdis, 8 MG PO BID PRN for NAUSEA/VOMITING-1ST LINE, (Reported) Promethazine HCl 25 Mg Tablet, 25 MG PO Q6H PRN for NAUSEA/VOMITING Prescribed by: DEMETRIO KAY on 11/15/18 1639 Ropinirole HCl 4 Mg Tablet, 4 MG PO HS, (Reported) Sertraline HCl 50 Mg Tablet, 50 MG PO HS, (Reported) Tizanidine HCl 4 Mg Tablet, 4 MG PO TID PRN for MUSCLE SPASMS, (Reported) Patient Home Medication List Home Medication List Reviewed: Yes Review of Systems Review of Systems Constitutional: see HPI EENTM: No Symptoms Reported Respiratory: No Symptoms Reported Cardiovascular: No Symptoms Reported Gastrointestinal: See HPI, Abdominal Pain Genitourinary: No Symptoms Reported Musculoskeletal: no symptoms reported Skin: no symptoms reported Psychiatric/Neurological: No Symptoms Reported Past Nakidkm-Wlsqoc-Pwfxzr Hx Patient Social History Type Used: Cigarettes 2nd Hand Smoke Exposure: No Recent Foreign Travel: No Contact w/Someone Who Travel: No Recent Hopitalizations: Yes (10/22/18 ABD SX) Immunizations Up To Date Tetanus Booster (TDap): Unknown PED Vaccines UTD: No Date of Pneumonia Vaccine: May 17, 2012 Date of Influenza Vaccine: Jul 03, 2012 Seasonal Allergies Seasonal Allergies: Yes (MILD) Past Medical History Surgeries: Yes Abdominal, Adenoidectomy, Appendectomy, Gallbladder, 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, Nephrectomy, Orthopedic, Tonsillectomy Respiratory: Yes Asthma Currently Using CPAP: No Currently Using BIPAP: No Cardiac: Yes Hypertension Neurological: Yes (RESTLESS LEG SYNDROME) Headaches /Migraines 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: Yes (HX ENDOMETRIOSIS ) 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 Sexually Transmitted Disease: No HIV/AIDS: No Genitourinary: Yes (L KIDNEY REMOVED FOR TUMOR-MALIGNANT;) UTI-Chronic Gastrointestinal: Yes Abdominal Hernia, Liver Disease/Jaundice, Pancreatitis, Polyps Musculoskeletal: Yes (COCCYX-REMOVED; MULTIPLE KNEE SURGERIES, ) Chronic Back Pain Endocrine: Yes (CHRONIC PANCREATITIS; OBESITY) HEENT: No Loss of Vision: Denies Hearing Impairment: Denies Cancer: Yes Kidney Did You Recieve Any Treatments: Yes What Type of Treatment Did You: Surgical Intervention Psychosocial: Yes Anxiety, Depression Integumentary: Yes Herpes Blood Disorders: No Adverse Reaction/Blood Tranf: No (N/A) Family Medical History Cardiovascular disease 19 FATHER Completed stroke 19 FATHER Diabetes mellitus 19 FATHER Hypercholesterolemia 19 FATHER 19 MOTHER Hypertension 19 FATHER 19 MOTHER Neoplasm 19 MOTHER Psychosocial problem 19 FATHER 19 MOTHER No Pertinent Family Hx, Cancer, Diabetes, Hypertension Physical Exam Vital Signs Vital Signs - First Documented 03/06/19 19:55 Temp 36.3 Pulse 95 Resp 18 B/P (MAP) 130/84 (99) Pulse Ox 96 Capillary Refill : Height/Weight/BMI Height: 5'3.00" Weight: 246lbs. 0oz. [id number]; 47.6 BMI Method:Stated General Appearance: WD/WN, no apparent distress Respiratory: lungs clear, normal breath sounds, no respiratory distress, no accessory muscle use Cardiovascular: regular rate, rhythm, no murmur Gastrointestinal: normal bowel sounds, soft Extremities: normal range of motion, non-tender Neurologic/Psychiatric: alert, normal mood/affect, oriented x 3 Skin: normal color, warm/dry Progress/Results/Core Measures Results/Orders Lab Results Laboratory Tests Test 03/06/19 20:06 03/06/19 20:15 Range/Units Urine Color YELLOW Urine Clarity CLEAR Urine pH 5 5-9 Urine Specific [place] 1.025 H 1.016-1.022 Urine Protein 1+ H NEGATIVE Urine Glucose (UA) NEGATIVE NEGATIVE Urine Ketones NEGATIVE NEGATIVE Urine Nitrite NEGATIVE NEGATIVE Urine Bilirubin NEGATIVE NEGATIVE Urine Urobilinogen NORMAL NORMAL MG/DL Urine Leukocyte Esterase NEGATIVE NEGATIVE Urine RBC (Auto) NEGATIVE NEGATIVE Urine RBC NONE /HPF Urine WBC RARE /HPF Urine Squamous Epithelial Cells 0-2 /HPF Urine Crystals NONE /LPF Urine Bacteria FEW H /HPF Urine Casts NONE /LPF Urine Mucus NEGATIVE /LPF Urine Culture Indicated NO White Blood Count 10.0 4.3-11.0 10^3/uL Red Blood Count 4.54 4.35-5.85 10^6/uL Hemoglobin 11.9 11.5-16.0 G/DL Hematocrit 37 35-52 % Mean Corpuscular Volume 82 80-99 FL Mean Corpuscular Hemoglobin 26 25-34 PG Mean Corpuscular Hemoglobin Concent 32 32-36 G/DL Red Cell Distribution Width 14.9 H 10.0-14.5 % Platelet Count 263 130-400 10^3/uL Mean Platelet Volume 9.4 7.4-10.4 FL Neutrophils (%) (Auto) 66 42-75 % Lymphocytes (%) (Auto) 28 12-44 % Monocytes (%) (Auto) 4 0-12 % Eosinophils (%) (Auto) 2 0-10 % Basophils (%) (Auto) 0 0-10 % Neutrophils # (Auto) 6.6 1.8-7.8 X 10^3 Lymphocytes # (Auto) 2.7 1.0-4.0 X 10^3 Monocytes # (Auto) 0.4 0.0-1.0 X 10^3 Eosinophils # (Auto) 0.2 0.0-0.3 10^3/uL Basophils # (Auto) 0.0 0.0-0.1 10^3/uL Sodium Level 142 135-145 MMOL/L Potassium Level 3.9 3.6-5.0 MMOL/L Chloride Level 107 98-107 MMOL/L Carbon Dioxide Level 21 21-32 MMOL/L Anion Gap 14 5-14 MMOL/L Blood Urea Nitrogen 18 7-18 MG/DL Creatinine 1.01 0.60-1.30 MG/DL Estimat Glomerular Filtration Rate > 60 BUN/Creatinine Ratio 18 Glucose Level 151 H 70-105 MG/DL Calcium Level 9.2 8.5-10.1 MG/DL Corrected Calcium 9.1 8.5-10.1 MG/DL Total Bilirubin 0.2 0.1-1.0 MG/DL Aspartate Amino Transf (AST/SGOT) 33 5-34 U/L Alanine Aminotransferase (ALT/SGPT) 25 0-55 U/L Alkaline Phosphatase 61 40-136 U/L Total Protein 7.4 6.4-8.2 GM/DL Albumin 4.1 3.2-4.5 GM/DL Lipase 43 8-78 U/L My Orders Orders - GEORGES FINN APRN Ua Culture If Indicated (03/06/19 19:49) Cbc With Automated Diff (03/06/19 19:49) Comprehensive Metabolic Panel (03/06/19 19:49) Lipase (03/06/19 20:46) Vital Signs/I&O 03/06/19 19:55 Temp 36.3 Pulse 95 Resp 18 B/P (MAP) 130/84 (99) Pulse Ox 96 Departure Communication (Admissions) Due to the shear volume of imaging Janeth has received over the past years for her complaints of abdominal pain I will forego imaging at this point given her normal labs Impression Primary Impression: Right sided abdominal pain Disposition: HOME, SELF-CARE Condition: Stable Departure-Patient Inst. Decision time for Depature: 21:10 Referrals: CARMEN GIBBS MD (PCP/Family) Primary Care Physician Patient Instructions: Acute Abdomen (Belly Pain), Adult (DC) Add. Discharge Instructions: 1. Return to ER for any concerns All discharge instructions reviewed with patient and/or family. Voiced understanding. GEORGES FINN APRN Mar 06, 2019 20:00
[2019-03-06 20:12] LABS: BILIRUBIN,URINE NEGATIVE (NEGATIVE); CLARITY,URINE CLEAR; COLOR,URINE YELLOW; GLUCOSE, URINE (UA) NEGATIVE (NEGATIVE); KETONES,URINE NEGATIVE (NEGATIVE); LEUKOCYTE ESTERASE ,URINE NEGATIVE (NEGATIVE); NITRITE,URINE NEGATIVE (NEGATIVE); PH,URINE 5 (5-9); PROTEIN,URINE 1+ (NEGATIVE); UROBILINOGEN,URINE NORMAL (NORMAL)
[2019-03-06 20:20] LABS: BASOPHILS % (AUTO) 0 % (0-10); EOSINOPHILS # (AUTO) 0.2 10^3/uL (0.0-0.3); EOSINOPHILS % (AUTO) 2 % (0-10); HEMATOCRIT 37 % (35-52); HEMOGLOBIN 11.9 G/DL (11.5-16.0); LYMPHOCYTES # (AUTO) 2.7 X 10^3 (1.0-4.0); LYMPHOCYTES % (AUTO) 28 % (12-44); MEAN CORPUSCULAR HEMOGLOBIN 26 PG (25-34); MEAN CORPUSCULAR HGB CONC 32 G/DL (32-36); MEAN CORPUSCULAR VOLUME 82 FL (80-99); MEAN PLATELET VOLUME 9.4 FL (7.4-10.4); MONOCYTES # (AUTO) 0.4 X 10^3 (0.0-1.0); MONOCYTES % (AUTO) 4 % (0-12); NEUTROPHILS # (AUTO) 6.6 X 10^3 (1.8-7.8); NEUTROPHILS % (AUTO) 66 % (42-75); PLATELET COUNT 263 10^3/uL (130-400); RED CELL DISTRIBUTION WIDTH 14.9 % (10.0-14.5)
[2019-03-06 20:26] LABS: BACTERIA,URINE FEW /HPF; WBC,URINE RARE /HPF
[2019-03-06 20:27] LABS: SQUAMOUS EPITHELIAL CELL,UR 0-2 /HPF
[2019-03-06 20:43] LABS: ALANINE AMINOTRANSFERASE 25 U/L (0-55); ALBUMIN 4.1 GM/DL (3.2-4.5); ALKALINE PHOSPHATASE 61 U/L (40-136); BILIRUBIN,TOTAL 0.2 MG/DL (0.1-1.0); BUN/CREATININE RATIO 18; CALCIUM 9.2 MG/DL (8.5-10.1); CARBON DIOXIDE 21 MMOL/L (21-32); CHLORIDE 107 MMOL/L (98-107); CREATININE SERUM 1.01 MG/DL (0.60-1.30); GFR ESTIMATED > 60; GLUCOSE 151 MG/DL (70-105); POTASSIUM 3.9 MMOL/L (3.6-5.0); SODIUM 142 MMOL/L (135-145); TOTAL PROTEIN 7.4 GM/DL (6.4-8.2)
[2019-03-06 21:15] VITALS: BP 130/84
== END 2019-03-06 21:15 | disposition home or self-care (01) ==
LOC: EDUNIT# 19:44 → ER 19:46
DX: R10.9 Unspecified abdominal pain (principal); I10 Essential (primary) hypertension; J45.909 Unspecified asthma, uncomplicated; G43.909 Migraine, unspecified, not intractable, without status migrainosus; F41.9 Anxiety disorder, unspecified; F32.9 Major depressive disorder, single episode, unspecified; Z85.528 Personal history of other malignant neoplasm of kidney; Z87.19 Personal history of other diseases of the digestive system; Z87.440 Personal history of urinary (tract) infections; Z88.5 Allergy status to narcotic agent; Z98.890 Other specified postprocedural states; Z88.0 Allergy status to penicillin; Z88.1 Allergy status to other antibiotic agents; Z79.52 Long term (current) use of systemic steroids; Z90.89 Acquired absence of other organs; Z90.49 Acquired absence of other specified parts of digestive tract; Z90.710 Acquired absence of both cervix and uterus; Z90.5 Acquired absence of kidney; Z82.49 Family history of ischemic heart disease and other diseases of the circulatory system
CPT/HCPCS: 36415; 80053; 81000; 83690; 85025; 99282

== ENCOUNTER 2019-03-10 13:49 | Emergency (ER) | payer MEDICARE, MEDICAID ==
[~2019-03-10] VITALS: Ht 160 cm; Wt 111.3 kg
--- NOTE | 2019-03-10 14:21 | NUR ---
Pt c/o photophobia. Pt given towel to cover eyes.
[2019-03-10] MEDS ORDERED: KETOROLAC 30 MG/ML VIAL IM ONE (14:45)
[2019-03-10] MEDS ORDERED: PROCHLORPERAZINE 10 MG/2ML INJ (COMPAZINE) IM ONE (14:45)
[2019-03-10] MEDS ORDERED: diphenhydrAMINE 50 MG/ML INJ (BENADRYL) IM ONE (14:45)
--- NOTE | 2019-03-10 14:49 | ED Headache ---
General Chief Complaint: Head/Cervical Problems Stated Complaint: HEADACHE Nursing Triage Note: Pt c/o headache which started this morning. She reports frontal MEJIA and behind rt eye. Nursing Sepsis Screen: No Definite Risk Source: patient Exam Limitations: no limitations History of Present Illness Date Seen by Provider: Mar 10, 2019 Time Seen by Provider: 14:46 Initial Comments To ER with reports of a frontal headache going on all day, history of migraines, this feels similar. She has photophobia and nausea with it. No fevers chills. Timing/Duration: 24 hours Severity/Quality: moderate Location: global Modifying Factors: worse with exposure to light (to) Associated Symptoms: nausea/vomiting Allergies and Home Medications Allergies Coded Allergies: fentanyl (Verified Allergy, Unknown, 10/16/18) meperidine (Verified Allergy, Unknown, 10/16/18) penicillin G (Verified Allergy, Unknown, 10/16/18) vancomycin (Unverified Adverse Reaction, Intermediate, severe itching, 10/16/18) Home Medications Benzonatate 100 Mg Capsule, 1-2 TAB PO TID Prescribed by: YAN CHAPARRO on 01/31/19516 Cefprozil 500 Mg Tablet, 500 MG PO BID Prescribed by: YAN CHAPARRO on 01/31/19516 Cyanocobalamin 1,000 Mcg/Ml Inj, 1,000 MCG IJ MONTHLY, (Reported) Estradiol 1 Mg Tablet, 1 MG PO HS, (Reported) Guaifenesin/Dextromethorphan 1 Each Tbmp.12hr, 1 EACH PO BID Prescribed by: YAN CHAPARRO on 01/31/19516 Hydrocodone/Acetaminophen 1 Each Tablet, 1 EA PO Q6HR PRN for PAIN-MODERATE Prescribed by: LINDSEY MARROQUIN on 10/23/18 1307 Methylprednisolone 4 Mg Tab.ds.pk, 4 MG PO UD Prescribed by: YAN CHAPARRO on 01/31/19516 Metoprolol Succinate 25 Mg Tab.er.24h, 25 MG PO HS, (Reported) Nitrofurantoin Monohyd/M-Cryst 100 Mg Capsule, 1 TAB PO BID Prescribed by: DEMETRIO KAY on 01/26/19 2140 Omeprazole 40 Mg Capsule.dr, 40 MG PO DAILY, (Reported) Ondansetron 8 Mg Tab.rapdis, 8 MG PO BID PRN for NAUSEA/VOMITING-1ST LINE, (Reported) Promethazine HCl 25 Mg Tablet, 25 MG PO Q6H PRN for NAUSEA/VOMITING Prescribed by: DEMETRIO KAY on 11/15/18 1639 Ropinirole HCl 4 Mg Tablet, 4 MG PO HS, (Reported) Sertraline HCl 50 Mg Tablet, 50 MG PO HS, (Reported) Tizanidine HCl 4 Mg Tablet, 4 MG PO TID PRN for MUSCLE SPASMS, (Reported) Patient Home Medication List Home Medication List Reviewed: Yes Review of Systems Review of Systems Constitutional: see HPI Eyes: No Symptoms Reported Ears, Nose, Mouth, Throat: no symptoms reported Respiratory: no symptoms reported Cardiovascular: no symptoms reported Genitourinary: no symptoms reported Musculoskeletal: see HPI Skin: no symptoms reported Psychiatric/Neurological: No Symptoms Reported Past Ebpogxs-Fmompc-Ehmuoa Hx Patient Social History Alcohol Use: Denies Use Recreational Drug Use: No Smoking Status: Former Smoker Type Used: Cigarettes 2nd Hand Smoke Exposure: No Recent Foreign Travel: No Contact w/Someone Who Travel: No Recent Infectious Disease Expo: No Recent Hopitalizations: Yes (10/22/18 ABD SX) Physical Abuse: No Sexual Abuse: No Immunizations Up To Date Tetanus Booster (TDap): Unknown PED Vaccines UTD: No Date of Pneumonia Vaccine: May 17, 2012 Date of Influenza Vaccine: Jul 03, 2012 Seasonal Allergies Seasonal Allergies: Yes (MILD) Past Medical History Surgeries: Yes Abdominal, Adenoidectomy, Appendectomy, Gallbladder, 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, Nephrectomy, Orthopedic, Tonsillectomy Respiratory: Yes Asthma Currently Using CPAP: No Currently Using BIPAP: No Cardiac: Yes Hypertension Neurological: Yes (RESTLESS LEG SYNDROME) Headaches /Migraines 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: Yes (HX ENDOMETRIOSIS ) 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 Sexually Transmitted Disease: No HIV/AIDS: No Genitourinary: Yes (L KIDNEY REMOVED FOR TUMOR-MALIGNANT;) UTI-Chronic Gastrointestinal: Yes Abdominal Hernia, Liver Disease/Jaundice, Pancreatitis, Polyps Musculoskeletal: Yes (COCCYX-REMOVED; MULTIPLE KNEE SURGERIES, ) Chronic Back Pain Endocrine: Yes (CHRONIC PANCREATITIS; OBESITY) HEENT: No Loss of Vision: Denies Hearing Impairment: Denies Cancer: Yes Kidney Did You Recieve Any Treatments: Yes What Type of Treatment Did You: Surgical Intervention Psychosocial: Yes Anxiety, Depression Integumentary: Yes Herpes Blood Disorders: No Adverse Reaction/Blood Tranf: No (N/A) Family Medical History Cardiovascular disease 19 FATHER Completed stroke 19 FATHER Diabetes mellitus 19 FATHER Hypercholesterolemia 19 FATHER 19 MOTHER Hypertension 19 FATHER 19 MOTHER Neoplasm 19 MOTHER Psychosocial problem 19 FATHER 19 MOTHER No Pertinent Family Hx, Cancer, Diabetes, Hypertension Physical Exam Vital Signs Vital Signs - First Documented 03/10/19 13:59 Temp 36.6 Pulse 81 Resp 20 B/P (MAP) 126/84 (98) Pulse Ox 96 Capillary Refill : Less Than 3 Seconds Height, Weight, BMI Height: 5'3.00" Weight: 246lbs. 0oz. 111.021079vr; 43.00 BMI Method:Stated General Appearance: WD/WN, no apparent distress HEENT: PERRL/EOMI, normal ENT inspection Neck: non-tender, full range of motion Respiratory: no respiratory distress, no accessory muscle use Gastrointestinal: normal bowel sounds, non tender Extremities: normal range of motion, non-tender Psychiatric: alert, oriented x 3 Crainal Nerves: normal hearing, normal speech, PERRL Skin: normal color, warm/dry Progress/Results/Core Measures Results/Orders My Orders Orders - GEORGES FINN APRN Ketorolac Injection (Toradol Injection) (03/10/19 14:45) Diphenhydramine Injection (Benadryl Inje (03/10/19 14:45) Prochlorperazine Injection (Compazine In (03/10/19 14:45) Vital Signs/I&O 03/10/19 13:59 Temp 36.6 Pulse 81 Resp 20 B/P (MAP) 126/84 (98) Pulse Ox 96 Blood Pressure Mean: 98 Departure Impression Primary Impression: Headache Qualified Codes: R51 - Headache Disposition: 01 HOME, SELF-CARE Condition: Stable Departure-Patient Inst. Decision time for Depature: 14:48 Referrals: CARMEN GIBBS MD (PCP/Family) Primary Care Physician Patient Instructions: Headache, Adult (DC) Add. Discharge Instructions: 1. Return to ER for any concerns 2. Follow-up with regular physician All discharge instructions reviewed with patient and/or family. Voiced understanding. GEORGES FINN APRN Mar 10, 2019 14:48
[2019-03-10 15:33] VITALS: BP 115/74
== END 2019-03-10 15:33 | disposition home or self-care (01) ==
LOC: EDUNIT# 13:49 → ER 13:50
DX: R51 Headache (principal); I10 Essential (primary) hypertension; J45.909 Unspecified asthma, uncomplicated; F32.9 Major depressive disorder, single episode, unspecified; F41.9 Anxiety disorder, unspecified; Z85.528 Personal history of other malignant neoplasm of kidney; Z90.710 Acquired absence of both cervix and uterus; Z90.5 Acquired absence of kidney; Z86.69 Personal history of other diseases of the nervous system and sense organs; Z87.440 Personal history of urinary (tract) infections; Z88.0 Allergy status to penicillin; Z88.5 Allergy status to narcotic agent; Z88.1 Allergy status to other antibiotic agents; Z79.52 Long term (current) use of systemic steroids; Z87.891 Personal history of nicotine dependence; Z90.49 Acquired absence of other specified parts of digestive tract; Z90.89 Acquired absence of other organs; Z82.49 Family history of ischemic heart disease and other diseases of the circulatory system
CPT/HCPCS: 96372; 99284

== ENCOUNTER 2019-03-22 07:06 | Emergency (ER) | payer MEDICARE, MEDICAID ==
[~2019-03-22] VITALS: Ht 157.4 cm; Wt 115.9 kg
[2019-03-22] MEDS ORDERED: LACTATED RINGERS 1,000 ML IV ONE (07:27)
[2019-03-22] MEDS ORDERED: PROMETHAZINE INJ 25 MG/ML (PHENERGAN) AMP IVP ONE (07:30)
[2019-03-22] MEDS ORDERED: fentaNYL INJECTION 100 MCG/2 ML AMP IVP ONE (07:30)
[2019-03-22] MEDS ORDERED: diphenhydrAMINE 50 MG/ML INJ (BENADRYL) IVP ONE (07:30)
[2019-03-22 07:33] LABS: BILIRUBIN,URINE NEGATIVE (NEGATIVE); CLARITY,URINE CLEAR; COLOR,URINE YELLOW; GLUCOSE, URINE (UA) NEGATIVE (NEGATIVE); KETONES,URINE NEGATIVE (NEGATIVE); LEUKOCYTE ESTERASE ,URINE NEGATIVE (NEGATIVE); NITRITE,URINE NEGATIVE (NEGATIVE); PH,URINE 6 (5-9); PROTEIN,URINE 1+ (NEGATIVE); UROBILINOGEN,URINE NORMAL (NORMAL)
[2019-03-22 07:39] LABS: BASOPHILS % (AUTO) 0 % (0-10); EOSINOPHILS # (AUTO) 0.2 10^3/uL (0.0-0.3); EOSINOPHILS % (AUTO) 3 % (0-10); HEMATOCRIT 36 % (35-52); HEMOGLOBIN 11.6 G/DL (11.5-16.0); LYMPHOCYTES # (AUTO) 2.3 X 10^3 (1.0-4.0); LYMPHOCYTES % (AUTO) 32 % (12-44); MEAN CORPUSCULAR HEMOGLOBIN 26 PG (25-34); MEAN CORPUSCULAR HGB CONC 32 G/DL (32-36); MEAN CORPUSCULAR VOLUME 81 FL (80-99); MEAN PLATELET VOLUME 9.1 FL (7.4-10.4); MONOCYTES # (AUTO) 0.5 X 10^3 (0.0-1.0); MONOCYTES % (AUTO) 6 % (0-12); NEUTROPHILS # (AUTO) 4.2 X 10^3 (1.8-7.8); NEUTROPHILS % (AUTO) 59 % (42-75); PLATELET COUNT 258 10^3/uL (130-400); RED CELL DISTRIBUTION WIDTH 14.9 % (10.0-14.5); WHITE BLOOD COUNT 7.2 10^3/uL (4.3-11.0)
[2019-03-22 07:47] LABS: BACTERIA,URINE MODERATE /HPF; WBC,URINE RARE /HPF
--- NOTE | 2019-03-22 07:48 | ED Abdominal Pain ---
General Chief Complaint: Abdominal/GI Problems Stated Complaint: ABD PAIN / VOMITING Nursing Triage Note: AMB TO ROOM C/O ABD PAIN SINCE SAT WITH VOMITING AND DIARRHEA. ZOFRAN AND HYDROCODONE ARE NOT HELPING. Sepsis Screen: No Definite Risk Source of Information: Patient Exam Limitations: No Limitations History of Present Illness Date Seen by Provider: Mar 22, 2019 Time Seen by Provider: 07:09 Initial Comments Patient presents to the ER by private conveyance with chief complaint of abdominal pain, nausea vomiting since Saturday. She had an unknown temperature. She's had loose stools as well. She been using her hydrocodone and Zofran upwards of 16 mg per dose with her last dose being at 0 300 today. Her last hydrocodone was 0 400. She tried calling her primary care office but it was Saturday evening. She has a history of cholecystectomy, appendectomy, 2 hernia repairs, hysterectomy as well as drains placed or seroma. She has a history of pancreatitis and was on pancreatic enzymes but did not tolerate them. She follows a [facility] cutter in [place]. Primary care is with [facility]. She's been using Tylenol as well as hydrocodone. She gets only minimal relief. She says she can take fentanyl but has take Benadryl with it because it can cause itching. Allergies and Home Medications Allergies Coded Allergies: fentanyl (Verified Allergy, Unknown, 10/16/18) meperidine (Verified Allergy, Unknown, 10/16/18) penicillin G (Verified Allergy, Unknown, 10/16/18) vancomycin (Unverified Adverse Reaction, Intermediate, severe itching, 10/16/18) Home Medications Benzonatate 100 Mg Capsule, 1-2 TAB PO TID Prescribed by: YAN CHAPARRO on 01/31/19516 Cefprozil 500 Mg Tablet, 500 MG PO BID Prescribed by: YAN CHAPARRO on 01/31/19516 Cyanocobalamin 1,000 Mcg/Ml Inj, 1,000 MCG IJ MONTHLY, (Reported) Estradiol 1 Mg Tablet, 1 MG PO HS, (Reported) Guaifenesin/Dextromethorphan 1 Each Tbmp.12hr, 1 EACH PO BID Prescribed by: YAN CHAPARRO on 01/31/19516 Hydrocodone/Acetaminophen 1 Each Tablet, 1 EA PO Q6HR PRN for PAIN-MODERATE Prescribed by: LINDSEY MARROQUIN on 10/23/18 1307 Methylprednisolone 4 Mg Tab.ds.pk, 4 MG PO UD Prescribed by: YAN CHAPARRO on 01/31/19 0517 Metoprolol Succinate 25 Mg Tab.er.24h, 25 MG PO HS, (Reported) Nitrofurantoin Monohyd/M-Cryst 100 Mg Capsule, 1 TAB PO BID Prescribed by: DEMETRIO KAY on 01/26/19 2140 Omeprazole 40 Mg Capsule.dr, 40 MG PO DAILY, (Reported) Ondansetron 8 Mg Tab.rapdis, 8 MG PO BID PRN for NAUSEA/VOMITING-1ST LINE, (Reported) Promethazine HCl 25 Mg Tablet, 25 MG PO Q6H PRN for NAUSEA/VOMITING Prescribed by: DEMETRIO KAY on 11/15/18 1639 Ropinirole HCl 4 Mg Tablet, 4 MG PO HS, (Reported) Sertraline HCl 50 Mg Tablet, 50 MG PO HS, (Reported) Tizanidine HCl 4 Mg Tablet, 4 MG PO TID PRN for MUSCLE SPASMS, (Reported) Patient Home Medication List Home Medication List Reviewed: Yes Review of Systems Review of Systems Constitutional: No chills, No diaphoresis EENTM: No Blurred Vision, No Double Vision Respiratory: Denies Cough, Denies Shortness of Air Cardiovascular: Denies Chest Pain, Denies Edema Gastrointestinal: See HPI, Abdominal Pain; Denies Constipated; Diarrhea, Robin [place], Poor Fluid Intake, Vomiting Genitourinary: Denies Burning, Denies Discharge Musculoskeletal: No back pain, No joint pain Past Hdpeydm-Srwptv-Ntdztm Hx Patient Social History Alcohol Use: Denies Use Recreational Drug Use: No Smoking Status: Never a Smoker Type Used: Cigarettes 2nd Hand Smoke Exposure: No Recent Foreign Travel: No Contact w/Someone Who Travel: No Recent Infectious Disease Expo: No Recent Hopitalizations: Yes (10/22/18 ABD SX) Immunizations Up To Date Tetanus Booster (TDap): Unknown PED Vaccines UTD: No Date of Pneumonia Vaccine: May 17, 2012 Date of Influenza Vaccine: Jul 03, 2012 Seasonal Allergies Seasonal Allergies: Yes (MILD) Past Medical History Surgeries: Yes Abdominal, Adenoidectomy, Appendectomy, Gallbladder, 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, Nephrectomy, Orthopedic, Tonsillectomy Respiratory: Yes Asthma Currently Using CPAP: No Currently Using BIPAP: No Cardiac: Yes Hypertension Neurological: Yes (RESTLESS LEG SYNDROME) Headaches /Migraines 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: Yes (HX ENDOMETRIOSIS ) 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: 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 Sexually Transmitted Disease: No HIV/AIDS: No Genitourinary: Yes (L KIDNEY REMOVED FOR TUMOR-MALIGNANT;) UTI-Chronic Gastrointestinal: Yes Abdominal Hernia, Liver Disease/Jaundice, Pancreatitis, Polyps Musculoskeletal: Yes (COCCYX-REMOVED; MULTIPLE KNEE SURGERIES, ) Chronic Back Pain Endocrine: Yes (CHRONIC PANCREATITIS; OBESITY) HEENT: No Loss of Vision: Denies Hearing Impairment: Denies Cancer: Yes Kidney Did You Recieve Any Treatments: Yes What Type of Treatment Did You: Surgical Intervention Psychosocial: Yes Anxiety, Depression Integumentary: Yes Herpes Blood Disorders: No Adverse Reaction/Blood Tranf: No (N/A) Family Medical History Cardiovascular disease 19 FATHER Completed stroke 19 FATHER Diabetes mellitus 19 FATHER Hypercholesterolemia 19 FATHER 19 MOTHER Hypertension 19 FATHER 19 MOTHER Neoplasm 19 MOTHER Psychosocial problem 19 FATHER 19 MOTHER No Pertinent Family Hx, Cancer, Diabetes, Hypertension Physical Exam Vital Signs Vital Signs - First Documented 03/22/19 07:09 Temp 37.4 Pulse 72 Resp 18 B/P (MAP) 136/69 (91) Pulse Ox 97 O2 Delivery Room Air Capillary Refill : Less Than 3 Seconds Height/Weight/BMI Height: 5'3.00" Weight: 246lbs. 0oz. 111.017861lw; 46.00 BMI Method:Stated General Appearance: WD/WN, mild distress HEENT: PERRL/EOMI, normal ENT inspection, pharynx normal Respiratory: lungs clear, normal breath sounds, no respiratory distress, no accessory muscle use Cardiovascular: normal peripheral pulses, regular rate, rhythm Gastrointestinal: normal bowel sounds, soft, no organomegaly, tenderness (all 4 quadrants without mesenteric signs, psoas sign) Extremities: normal range of motion, normal capillary refill Neurologic/Psychiatric: alert, normal mood/affect, oriented x 3 Skin: normal color, warm/dry Progress/Results/Core Measures Results/Orders Lab Results Laboratory Tests Test 03/22/19 07:20 03/22/19 07:29 Range/Units Urine Color YELLOW Urine Clarity CLEAR Urine pH 6 5-9 Urine Specific [place] 1.020 1.016-1.022 Urine Protein 1+ H NEGATIVE Urine Glucose (UA) NEGATIVE NEGATIVE Urine Ketones NEGATIVE NEGATIVE Urine Nitrite NEGATIVE NEGATIVE Urine Bilirubin NEGATIVE NEGATIVE Urine Urobilinogen NORMAL NORMAL MG/DL Urine Leukocyte Esterase NEGATIVE NEGATIVE Urine RBC (Auto) NEGATIVE NEGATIVE Urine RBC NONE /HPF Urine WBC RARE /HPF Urine Squamous Epithelial Cells 2-5 /HPF Urine Crystals NONE /LPF Urine Bacteria MODERATE H /HPF Urine Casts NONE /LPF Urine Mucus NEGATIVE /LPF Urine Culture Indicated NO White Blood Count 7.2 4.3-11.0 10^3/uL Red Blood Count 4.47 4.35-5.85 10^6/uL Hemoglobin 11.6 11.5-16.0 G/DL Hematocrit 36 35-52 % Mean Corpuscular Volume 81 80-99 FL Mean Corpuscular Hemoglobin 26 25-34 PG Mean Corpuscular Hemoglobin Concent 32 32-36 G/DL Red Cell Distribution Width 14.9 H 10.0-14.5 % Platelet Count 258 130-400 10^3/uL Mean Platelet Volume 9.1 7.4-10.4 FL Neutrophils (%) (Auto) 59 42-75 % Lymphocytes (%) (Auto) 32 12-44 % Monocytes (%) (Auto) 6 0-12 % Eosinophils (%) (Auto) 3 0-10 % Basophils (%) (Auto) 0 0-10 % Neutrophils # (Auto) 4.2 1.8-7.8 X 10^3 Lymphocytes # (Auto) 2.3 1.0-4.0 X 10^3 Monocytes # (Auto) 0.5 0.0-1.0 X 10^3 Eosinophils # (Auto) 0.2 0.0-0.3 10^3/uL Basophils # (Auto) 0.0 0.0-0.1 10^3/uL Sodium Level 144 135-145 MMOL/L Potassium Level 4.1 3.6-5.0 MMOL/L Chloride Level 108 H 98-107 MMOL/L Carbon Dioxide Level 24 21-32 MMOL/L Anion Gap 12 5-14 MMOL/L Blood Urea Nitrogen 16 7-18 MG/DL Creatinine 0.82 0.60-1.30 MG/DL Estimat Glomerular Filtration Rate > 60 BUN/Creatinine Ratio 20 Glucose Level 89 70-105 MG/DL Calcium Level 9.0 8.5-10.1 MG/DL Corrected Calcium 9.2 8.5-10.1 MG/DL Magnesium Level 2.0 1.6-2.4 MG/DL Total Bilirubin 0.2 0.1-1.0 MG/DL Aspartate Amino Transf (AST/SGOT) 35 H 5-34 U/L Alanine Aminotransferase (ALT/SGPT) 25 0-55 U/L Alkaline Phosphatase 66 40-136 U/L C-Reactive Protein High Sensitivity 1.82 H 0.00-0.50 MG/DL Total Protein 7.1 6.4-8.2 GM/DL Albumin 3.8 3.2-4.5 GM/DL Lipase 43 8-78 U/L My Orders Orders - MAKAYLA HAWKINS Ua Culture If Indicated (03/22/19 07:07) Ed Iv/Invasive Line Start (03/22/19 07:27) Lactated Ringers (Lr 1000 Ml Iv Solution (03/22/19 07:27) Cbc With Automated Diff (03/22/19 07:27) Comprehensive Metabolic Panel (03/22/19 07:27) Hs C Reactive Protein (03/22/19 07:27) Lipase (03/22/19 07:27) Magnesium (03/22/19 07:27) Promethazine Injection (Phenergan Injec (03/22/19 07:30) Diphenhydramine Injection (Benadryl Inje (03/22/19 07:30) Fentanyl Injection (Sublimaze Injection (03/22/19 07:30) Acute Abd Series (03/22/19 07:30) Medications Given in ED Current Medications Medications Dose Ordered Sig/Neal Route Start Time Stop Time Status Last Admin Dose Admin Diphenhydramine HCl 25 mg ONCE ONCE IVP 03/22/19 07:30 03/22/19 07:31 DC 03/22/19 07:45 25 MG Fentanyl Citrate 50 mcg ONCE ONCE IVP 03/22/19 07:30 03/22/19 07:31 DC 03/22/19 07:44 50 MCG Lactated Ringer's 1,000 ml @ 0 mls/hr Q0M ONCE IV 03/22/19 07:27 03/22/19 07:30 DC 03/22/19 07:41 1,000 MLS/HR Promethazine HCl 25 mg ONCE ONCE IVP 03/22/19 07:30 03/22/19 07:31 DC 03/22/19 07:44 25 MG Vital Signs/I&O 03/22/19 07:09 Temp 37.4 Pulse 72 Resp 18 B/P (MAP) 136/69 (91) Pulse Ox 97 O2 Delivery Room Air Blood Pressure Mean: 91 Progress Progress Note : Time: 08:49 Progress Note After the Phenergan and fentanyl the patient remarks that her pain is significantly improved but still comes and goes. She says the nausea is gone. She does not have any Phenergan at home so we'll send some to the pharmacy. She likely is expressing a viral gastroenteritis. Told her that if her symptoms do not improve by Saturday or Saturday then she should follow-up with primary care. Given her return precautions and she is okay with this plan. Diagnostic Imaging Diagonstic Imaging: Xray Plain Films/CT/US/NM/MRI: abdomen (acute abdomen) Comments NAME: JAYLYN DELGADO [facility] REC#: [id number] PT STATUS: REG ER : 1985 PHYSICIAN: MAKAYLA HAWKINS MD ADMIT DATE: 03/22/19/ER Draft Date of Exam:03/22/19 ACUTE ABD SERIES EXAM: Acute abdomen series at 8:15 INDICATION: Left upper quadrant pain FINDINGS: The heart size is within normal limits and stable when compared to 10/29/2018. The linear atelectasis in the left mid lung seen previously has essentially resolved. The lungs are generally clear and well aerated. There is no sign of a pneumoperitoneum. Supine and erect views of the abdomen were obtained. This exam is less than optimal due to motion artifact on the erect film. There is gas in both the large and small bowel in a nonspecific fashion. This appearance is similar to the prior exam of 10/29/2018. There is no sign of a bowel obstruction. There is a fair amount of fecal material in the transverse colon. There is no mass, organomegaly or pathological calcification evident. The surgical clips and sutures seen previously are again evident. The osseous structures are intact. IMPRESSION: 1. The bowel gas pattern is nonspecific. There is no acute abnormality identified. 2. The linear atelectasis in the left lung base seen previously has essentially resolved. There is no acute cardiopulmonary abnormality noted. Dictated on workstation # [id number] Dict: 03/[birth year]/1925 Trans: 03/22/19 0837 [facility] [id number] Interpreted by: NETTA MCFADDEN MD Electronically signed by: Reviewed: Reviewed by Me Departure Impression Primary Impression: Abdominal pain Qualified Codes: R10.84 - Generalized abdominal pain Additional Impression: Viral gastroenteritis Disposition: HOME, SELF-CARE Condition: Improved Departure-Patient Inst. Decision time for Depature: 08:51 Referrals: CARMEN GIBBS MD (PCP/Family) Primary Care Physician Patient Instructions: Viral Gastroenteritis, Adult (DC) Add. Discharge Instructions: Keep using your pain medicines as prescribed. You may continue to use the Zofran as prescribed. Phenergan 1 tablet every 6 hours as needed in addition to a Benadryl for nausea. If your symptoms persist past Saturday then you should make a follow-up appointment with primary care. If your pain or nausea becomes intractable despite these medications then you should follow-up sooner. All discharge instructions reviewed with patient and/or family. Voiced understanding. Scripts Promethazine HCl (Promethazine Tablet) 25 Mg Tablet 25 MG PO Q6H PRN for NAUSEA/VOMITING, #20 TAB 0 Refills Prov: MAKAYLA HAWKINS 03/22/19 MAKAYLA HAWKINS Mar 22, 2019 07:48
[2019-03-22 08:01] LABS: ALANINE AMINOTRANSFERASE 25 U/L (0-55); ALBUMIN 3.8 GM/DL (3.2-4.5); ALKALINE PHOSPHATASE 66 U/L (40-136); BILIRUBIN,TOTAL 0.2 MG/DL (0.1-1.0); BUN/CREATININE RATIO 20; CARBON DIOXIDE 24 MMOL/L (21-32); CHLORIDE 108 MMOL/L (98-107); CREATININE SERUM 0.82 MG/DL (0.60-1.30); GFR ESTIMATED > 60; GLUCOSE 89 MG/DL (70-105); LIPASE 43 U/L (8-78); POTASSIUM 4.1 MMOL/L (3.6-5.0); SODIUM 144 MMOL/L (135-145); TOTAL PROTEIN 7.1 GM/DL (6.4-8.2)
--- NOTE | 2019-03-22 08:07 | NUR ---
TO X RAY PER W/C
--- NOTE | 2019-03-22 08:38 | Diagnostic Imaging Report ---
EXAM: Acute abdomen series at 8:15 INDICATION: Left upper quadrant pain FINDINGS: The heart size is within normal limits and stable when compared to 10/29/2018. The linear atelectasis in the left mid lung seen previously has essentially resolved. The lungs are generally clear and well aerated. There is no sign of a pneumoperitoneum. Supine and erect views of the abdomen were obtained. This exam is less than optimal due to motion artifact on the erect film. There is gas in both the large and small bowel in a nonspecific fashion. This appearance is similar to the prior exam of 10/29/2018. There is no sign of a bowel obstruction. There is a fair amount of fecal material in the transverse colon. There is no mass, organomegaly or pathological calcification evident. The surgical clips and sutures seen previously are again evident. The osseous structures are intact. IMPRESSION: 1. The bowel gas pattern is nonspecific. There is no acute abnormality identified. 2. The linear atelectasis in the left lung base seen previously has essentially resolved. There is no acute cardiopulmonary abnormality noted. Dictated by: Dictated on workstation # [id number]
[2019-03-22] MEDS ORDERED: PROM25TA14 PO (08:52)
[2019-03-22 09:21] VITALS: BP 101/61
== END 2019-03-22 09:30 | disposition home or self-care (01) ==
LOC: EDUNIT# 07:06 → ER 07:07
DX: A08.4 Viral intestinal infection, unspecified (principal); J45.909 Unspecified asthma, uncomplicated; I10 Essential (primary) hypertension; G43.909 Migraine, unspecified, not intractable, without status migrainosus; E66.9 Obesity, unspecified; F41.9 Anxiety disorder, unspecified; F32.9 Major depressive disorder, single episode, unspecified; Z85.528 Personal history of other malignant neoplasm of kidney; Z90.49 Acquired absence of other specified parts of digestive tract; Z90.710 Acquired absence of both cervix and uterus; Z87.440 Personal history of urinary (tract) infections; Z87.19 Personal history of other diseases of the digestive system; Z90.5 Acquired absence of kidney; Z90.89 Acquired absence of other organs; Z88.5 Allergy status to narcotic agent; Z88.0 Allergy status to penicillin; Z88.1 Allergy status to other antibiotic agents; Z68.42 Body mass index [BMI] 45.0-49.9, adult; Z79.52 Long term (current) use of systemic steroids; Z82.49 Family history of ischemic heart disease and other diseases of the circulatory system
CPT/HCPCS: 36415; 74022; 80053; 81000; 83690; 83735; 85025; 86141

== ENCOUNTER 2019-03-31 10:07 | Emergency (ER) | payer MEDICARE, MEDICAID ==
[~2019-03-31] VITALS: Ht 162.5 cm; Wt 100.0 kg
[~2019-03-31 10:07] MED LIST changes: -CATHETER FLUSH 10 ML SYR IV PRN; -FURO-125 PO; -HOLD METFORMIN - RECEIVED CONTRAST 20 ML VIAL IV SCH; -IOHEXOL 350 MG/ML 100 ML (OMNIPAQUE 350) VIAL IV ONE; -NS 100 ML (IVPB) BAG IV ONE
--- NOTE | 2019-03-31 10:44 | NUR ---
Pt c/o both nad feeling "asleep". Pt also c/o pain to lt 2nd finger. Pt had CT of neck today. VS-119/81, 87p, 20r, 97%, 36.5 temp.
[2019-03-31] MEDS ORDERED: FURO-125 PO (11:27)
--- NOTE | 2019-03-31 11:27 | ED General ---
General Chief Complaint: General Problems/Pain Stated Complaint: BILATERAL HAND NUMBNESS Nursing Triage Note: Pt amb to triage with c/o bilat hand pins and needle sensation. Pt reports she has been experiencing symtpoms for approx 3wks. Distal cap refill <2 seconds. Pt demonstrates ability to move bilat hands and fingers. Pt reports she has seen her pcp for symptoms and had scheduled MRI prodecure. Pt arrives with patent 22g IV to rt hand placed by radiology this morning prior to scheduled CT with contrast. 10ml ns flushed through IV. Nursing Sepsis Screen: No Definite Risk Source of Information: Patient Exam Limitations: No Limitations History of Present Illness Date Seen by Provider: Mar 31, 2019 Time Seen by Provider: 11:24 Initial Comments To ER for the 26th time this year with complaints of bilateral hand tightness and tingling and numbness for 3 weeks. It affects both hands, all 5 fingers both sides of each finger. Seems to begin at the elbow and go distally. She arrives from outpatient radiology where she had a CT soft tissue neck with contrast, she only has one kidney, history of kidney dysfunction after contrast she alleges. Was told she needed fluids by someone. Timing/Duration: Other (3 weeks) Severity: Moderate Associated Systoms: Denies Symptoms Allergies and Home Medications Allergies Coded Allergies: fentanyl (Verified Allergy, Unknown, 10/16/18) meperidine (Verified Allergy, Unknown, 10/16/18) penicillin G (Verified Allergy, Unknown, 10/16/18) vancomycin (Unverified Adverse Reaction, Intermediate, severe itching, 10/16/18) Home Medications Benzonatate 100 Mg Capsule, 1-2 TAB PO TID Prescribed by: YAN CHAPARRO on 01/31/19516 Cefprozil 500 Mg Tablet, 500 MG PO BID Prescribed by: YAN CHAPARRO on 01/31/19516 Cyanocobalamin 1,000 Mcg/Ml Inj, 1,000 MCG IJ MONTHLY, (Reported) Estradiol 1 Mg Tablet, 1 MG PO HS, (Reported) Guaifenesin/Dextromethorphan 1 Each Tbmp.12hr, 1 EACH PO BID Prescribed by: YAN CHAPARRO on 01/31/19516 Hydrocodone/Acetaminophen 1 Each Tablet, 1 EA PO Q6HR PRN for PAIN-MODERATE Prescribed by: LINDSEY MARROQUIN on 10/23/18 1307 Methylprednisolone 4 Mg Tab.ds.pk, 4 MG PO UD Prescribed by: YAN CHAPARRO on 01/31/19 0517 Metoprolol Succinate 25 Mg Tab.er.24h, 25 MG PO HS, (Reported) Nitrofurantoin Monohyd/M-Cryst 100 Mg Capsule, 1 TAB PO BID Prescribed by: DEMETRIO KAY on 01/26/19 2140 Omeprazole 40 Mg Capsule.dr, 40 MG PO DAILY, (Reported) Ondansetron 8 Mg Tab.rapdis, 8 MG PO BID PRN for NAUSEA/VOMITING-1ST LINE, (Reported) Promethazine HCl 25 Mg Tablet, 25 MG PO Q6H PRN for NAUSEA/VOMITING Prescribed by: DEMETRIO KAY on 11/15/18 1639 Promethazine HCl 25 Mg Tablet, 25 MG PO Q6H PRN for NAUSEA/VOMITING Prescribed by: MAKAYLA HAWKINS on 03/22/19 0852 Ropinirole HCl 4 Mg Tablet, 4 MG PO HS, (Reported) Sertraline HCl 50 Mg Tablet, 50 MG PO HS, (Reported) Tizanidine HCl 4 Mg Tablet, 4 MG PO TID PRN for MUSCLE SPASMS, (Reported) Patient Home Medication List Home Medication List Reviewed: Yes Review of Systems Review of Systems Constitutional: see HPI EENTM: see HPI Respiratory: no symptoms reported Cardiovascular: no symptoms reported Genitourinary: no symptoms reported Musculoskeletal: no symptoms reported Skin: no symptoms reported Psychiatric/Neurological: No Symptoms Reported Hematologic/Lymphatic: No Symptoms Reported Past Yqzuxql-Izbcwd-Cnhjal Hx Patient Social History Alcohol Use: Denies Use Recreational Drug Use: No Smoking Status: Unknown if Ever Smoked Type Used: Cigarettes 2nd Hand Smoke Exposure: No Recent Foreign Travel: No Contact w/Someone Who Travel: No Recent Infectious Disease Expo: No Recent Hopitalizations: Yes (10/22/18 ABD SX) Immunizations Up To Date Tetanus Booster (TDap): Unknown PED Vaccines UTD: No Date of Pneumonia Vaccine: May 17, 2012 Date of Influenza Vaccine: Jul 03, 2012 Seasonal Allergies Seasonal Allergies: Yes (MILD) Past Medical History Surgeries: Yes Abdominal, Adenoidectomy, Appendectomy, Gallbladder, 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, Nephrectomy, Orthopedic, Tonsillectomy Respiratory: Yes Asthma Currently Using CPAP: No Currently Using BIPAP: No Cardiac: Yes Hypertension Neurological: Yes (RESTLESS LEG SYNDROME) Headaches /Migraines 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: Yes (HX ENDOMETRIOSIS ) 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: 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 History: 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 Sexually Transmitted Disease: No HIV/AIDS: No Genitourinary: Yes (L KIDNEY REMOVED FOR TUMOR-MALIGNANT;) UTI-Chronic Gastrointestinal: Yes Abdominal Hernia, Liver Disease/Jaundice, Pancreatitis, Polyps Musculoskeletal: Yes (COCCYX-REMOVED; MULTIPLE KNEE SURGERIES, ) Chronic Back Pain Endocrine: Yes (CHRONIC PANCREATITIS; OBESITY) HEENT: No Loss of Vision: Denies Hearing Impairment: Denies Cancer: Yes Kidney Did You Recieve Any Treatments: Yes What Type of Treatment Did You: Surgical Intervention Psychosocial: Yes Anxiety, Depression Integumentary: Yes Herpes Blood Disorders: No Adverse Reaction/Blood Tranf: No (N/A) Family Medical History Cardiovascular disease 19 FATHER Completed stroke 19 FATHER Diabetes mellitus 19 FATHER Hypercholesterolemia 19 FATHER 19 MOTHER Hypertension 19 FATHER 19 MOTHER Neoplasm 19 MOTHER Psychosocial problem 19 FATHER 19 MOTHER No Pertinent Family Hx, Cancer, Diabetes, Hypertension Physical Exam Vital Signs Vital Signs - First Documented 03/31/19 11:00 Temp 36.4 Pulse 68 Resp 20 B/P (MAP) 128/78 (95) Pulse Ox 96 O2 Delivery Room Air Capillary Refill : Less Than 3 Seconds Height, Weight, BMI Height: 5'3.00" Weight: 246lbs. 0oz. 111.329701lp; 37.00 BMI Method:Stated General Appearance: No Apparent Distress, WD/WN, Obese Eyes: Bilateral Eye Normal Inspection, Bilateral Eye PERRL, Bilateral Eye EOMI Neck: Full Range of Motion, Normal Inspection Respiratory: No Accessory Muscle Use, No Respiratory Distress Cardiovascular: Regular Rate, Rhythm, Normal Peripheral Pulses Gastrointestinal: Normal Bowel Sounds, Non Tender, Soft Extremity: Normal Capillary Refill, Normal Inspection, Other (hands do seem a bit tight, fingers seem a bit tight. States that they feel tight when she rubs her hand around the steering wheel.) Neurologic/Psychiatric: Alert, Oriented x3 Skin: Normal Color, Warm/Dry Progress/Results/Core Measures Suspected Sepsis Recent Fever Within 48 Hours: No Infection Criteria Present: None New/Unexplained Altered Menta: No Sepsis Screen: No Definite Risk SIRS Temperature: Pulse: 68 Respiratory Rate: 20 Blood Pressure 128 /78 Mean: 95 Results/Orders My Orders Orders - GEORGES FINN APRN Normal Saline 500 Ml Iv (03/31/19 11:30) Vital Signs/I&O 03/31/19 11:00 Temp 36.4 Pulse 68 Resp 20 B/P (MAP) 128/78 (95) Pulse Ox 96 O2 Delivery Room Air Capillary Refill : Less Than 3 Seconds Blood Pressure Mean: 95 Departure Impression Primary Impression: Numbness and tingling in both hands Disposition: 01 HOME, SELF-CARE Condition: Stable Departure-Patient Inst. Decision time for Depature: 11:26 Referrals: CARMEN GIBBS MD (PCP/Family) Primary Care Physician KIKE MONACO MD Patient Instructions: Paresthesias (DC) Add. Discharge Instructions: 1. Return to ER for any concerns 2. Call Dr. Monaco today to make an appointment to be seen. All discharge instructions reviewed with patient and/or family. Voiced understanding. Scripts Furosemide (Lasix) 20 Mg Tablet 20 MG PO DAILY, #2 TAB Prov: GEORGES FINN APRN 03/31/19 GEORGES FINN APRN Mar 31, 2019 11:27
[2019-03-31] MEDS ORDERED: NS IV 500 ML 500 ML IV SCH (11:30)
[2019-03-31 11:57] VITALS: BP 128/78
== END 2019-03-31 11:57 | disposition home or self-care (01) ==
LOC: EDUNIT# 10:07 → ER 10:08
DX: R20.0 Anesthesia of skin (principal); R20.2 Paresthesia of skin; I10 Essential (primary) hypertension; J45.909 Unspecified asthma, uncomplicated; G43.909 Migraine, unspecified, not intractable, without status migrainosus; F41.9 Anxiety disorder, unspecified; F32.9 Major depressive disorder, single episode, unspecified; E66.9 Obesity, unspecified; Z90.5 Acquired absence of kidney; Z88.5 Allergy status to narcotic agent; Z68.37 Body mass index [BMI] 37.0-37.9, adult; Z87.440 Personal history of urinary (tract) infections; Z88.0 Allergy status to penicillin; Z88.1 Allergy status to other antibiotic agents; Z85.528 Personal history of other malignant neoplasm of kidney; Z79.52 Long term (current) use of systemic steroids; Z90.49 Acquired absence of other specified parts of digestive tract; Z90.89 Acquired absence of other organs; Z90.710 Acquired absence of both cervix and uterus; Z82.49 Family history of ischemic heart disease and other diseases of the circulatory system
CPT/HCPCS: 99281

== ENCOUNTER → 2019-03-31 | Outpatient (CLI) | payer MEDICARE, MEDICAID ==
[~2019-03-31] MED LIST changes: +CATHETER FLUSH 10 ML SYR IV PRN; +FURO-125 PO; +HOLD METFORMIN - RECEIVED CONTRAST 20 ML VIAL IV SCH; +IOHEXOL 350 MG/ML 100 ML (OMNIPAQUE 350) VIAL IV ONE; +NS 100 ML (IVPB) BAG IV ONE
--- NOTE | 2019-03-31 10:22 | Diagnostic Imaging Report ---
CLINICAL INDICATION: Patient with sore throat for one year. Anterior and both sides hurts. Patient has strep throat several times a year. EXAM: CT scan of the neck soft tissue performed with 75 mL of Omnipaque 350 IV contrast. Coronal and sagittal reformatted images are created. Auto Exposure Controls were utilized during the CT exam to meet ALARA standards for radiation dose reduction. COMPARISON: CT scan of the neck soft tissue with contrast dated 08/28/2016. FINDINGS: The nasopharynx, oropharynx, hypopharynx, laryngeal soft tissue structures show no significant abnormality. Suspected tonsillectomy changes. There is no parapharyngeal fat stranding, fluid collection or concern for abscess. There are small lymph nodes involving both sides of the neck. There is a mildly prominent lymph node in the left level IB region which measures 11 mm x 9 mm and previously measured 14 mm x 6 mm. Previously seen prominent lymph node in the right level IA region has decreased in size. The fat stranding previously in this area has slightly decreased. There is suspected scarring in the left neck region still present. The salivary glands and thyroid gland are unremarkable. The neck vascular structures show no significant abnormality. The visualized upper lung west are clear. Limited visualization of intracranial structures are unremarkable. The orbits and globes are unremarkable. The paranasal sinuses and mastoid air cells are clear. There are degenerative spurs involving the cervical spine. IMPRESSION: 1: There is no significant neck soft tissue abnormality, fat stranding, or fluid collection/abscess. There is no significant lymphadenopathy. 2: There is interval decreased size of the right level 1A lymph node and resolution of the adjacent fat stranding. Stable scarring in the left submandibular region. 3: There is no other significant abnormality seen. Dictated by: Dictated on workstation # [id number]
== END ==
LOC: RAD 09:38
PROVIDERS: ATTEND Otolaryngology Otolaryngology/Facial Plastic Surgery
DX: J02.9 Acute pharyngitis, unspecified (principal); R59.0 Localized enlarged lymph nodes; Z90.89 Acquired absence of other organs
CPT/HCPCS: 70491

== ENCOUNTER 2019-04-07 10:17 | Emergency (ER) | payer MEDICARE, MEDICAID ==
[~2019-04-07] VITALS: Ht 160 cm; Wt 114.8 kg
[~2019-04-07 10:17] MED LIST changes: +FURO-125 PO
[2019-04-07] MEDS ORDERED: KETOROLAC 30 MG/ML VIAL IM ONE (12:45)
--- NOTE | 2019-04-07 12:48 | ED Abdominal Pain ---
General Chief Complaint: Abdominal/GI Problems Stated Complaint: LEFT SIDE PAIN Nursing Triage Note: Ambulatory to one. Pt reports L side abdominal pain that radiates to side. Pt reports pain began yesterday. Pt reports decreased appetite. Pt reports last BM yesterday, and denies urinary symptoms. Pt reports pain as a pulling sensation. Pt reports taking zofran at 0700 today, tylenol and hydrocodone yesterday. Sepsis Screen: No Definite Risk Source of Information: Patient Exam Limitations: No Limitations History of Present Illness Date Seen by Provider: Apr 07, 2019 Time Seen by Provider: 12:46 Initial Comments To ER with left flank pain, states it feels like something is tearing. She has mesh here from hernia repair, history of left nephrectomy within the past 2 years. This is her 28th visit to the emergency room this year, she's had a total of 8 CT scans in the past few years as well. She reports nausea but no vomiting no fever no chills. Timing/Duration: 1-2 Days Severity/Quality: Moderate Location: LLQ, Flank Radiation: No Radiation Activities at Onset: None Associated Symptoms: Denies Symptoms Allergies and Home Medications Allergies Coded Allergies: fentanyl (Verified Allergy, Unknown, 10/16/18) meperidine (Verified Allergy, Unknown, 10/16/18) penicillin G (Verified Allergy, Unknown, 10/16/18) vancomycin (Unverified Adverse Reaction, Intermediate, severe itching, 10/16/18) Home Medications Benzonatate 100 Mg Capsule, 1-2 TAB PO TID Prescribed by: YAN CHAPARRO on 01/31/19516 Cefprozil 500 Mg Tablet, 500 MG PO BID Prescribed by: YAN CHAPARRO on 01/31/19516 Cyanocobalamin 1,000 Mcg/Ml Inj, 1,000 MCG IJ MONTHLY, (Reported) Estradiol 1 Mg Tablet, 1 MG PO HS, (Reported) Furosemide 20 Mg Tablet, 20 MG PO DAILY Prescribed by: GEORGES FINN on 03/31/19 1127 Guaifenesin/Dextromethorphan 1 Each Tbmp.12hr, 1 EACH PO BID Prescribed by: YAN CHAPARRO on 01/31/19516 Hydrocodone/Acetaminophen 1 Each Tablet, 1 EA PO Q6HR PRN for PAIN-MODERATE Prescribed by: LINDSEY MARROQUIN on 10/23/18 1307 Methylprednisolone 4 Mg Tab.ds.pk, 4 MG PO UD Prescribed by: YAN CHAPARRO on 01/31/19 0517 Metoprolol Succinate 25 Mg Tab.er.24h, 25 MG PO HS, (Reported) Nitrofurantoin Monohyd/M-Cryst 100 Mg Capsule, 1 TAB PO BID Prescribed by: DEMETRIO KAY on 01/26/19 2140 Omeprazole 40 Mg Capsule.dr, 40 MG PO DAILY, (Reported) Ondansetron 8 Mg Tab.rapdis, 8 MG PO BID PRN for NAUSEA/VOMITING-1ST LINE, (Reported) Promethazine HCl 25 Mg Tablet, 25 MG PO Q6H PRN for NAUSEA/VOMITING Prescribed by: DEMETRIO KAY on 11/15/18 1639 Promethazine HCl 25 Mg Tablet, 25 MG PO Q6H PRN for NAUSEA/VOMITING Prescribed by: MAKAYLA HAWKINS on 03/22/19 0852 Ropinirole HCl 4 Mg Tablet, 4 MG PO HS, (Reported) Sertraline HCl 50 Mg Tablet, 50 MG PO HS, (Reported) Tizanidine HCl 4 Mg Tablet, 4 MG PO TID PRN for MUSCLE SPASMS, (Reported) Patient Home Medication List Home Medication List Reviewed: Yes Review of Systems Review of Systems Constitutional: see HPI EENTM: No Symptoms Reported Respiratory: No Symptoms Reported Cardiovascular: No Symptoms Reported Gastrointestinal: No Symptoms Reported, Abdominal Pain Genitourinary: No Symptoms Reported Musculoskeletal: no symptoms reported Skin: no symptoms reported Psychiatric/Neurological: No Symptoms Reported Endocrine: No Symptoms Reported Hematologic/Lymphatic: No Symptoms Reported Past [id number]-Ousdwq-Yyhxxa Hx Patient Social History Alcohol Use: Denies Use Recreational Drug Use: No Type Used: Cigarettes 2nd Hand Smoke Exposure: No Recent Foreign Travel: No Contact w/Someone Who Travel: No Recent Infectious Disease Expo: No Recent Hopitalizations: No Physical Abuse: No Sexual Abuse: No Mistreated: No Immunizations Up To Date Tetanus Booster (TDap): Unknown PED Vaccines UTD: No Date of Pneumonia Vaccine: May 17, 2012 Date of Influenza Vaccine: Jul 03, 2012 Seasonal Allergies Seasonal Allergies: Yes (MILD) Past Medical History Surgeries: Yes Abdominal, Adenoidectomy, Appendectomy, Gallbladder, 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, Nephrectomy, Orthopedic, Tonsillectomy Respiratory: Yes Asthma Currently Using CPAP: No Currently Using BIPAP: No Cardiac: Yes Hypertension Neurological: Yes (RESTLESS LEG SYNDROME) Headaches /Migraines 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: Yes (HX ENDOMETRIOSIS ) 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: 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 Sexually Transmitted Disease: No HIV/AIDS: No Genitourinary: Yes (L KIDNEY REMOVED FOR TUMOR-MALIGNANT;) UTI-Chronic Gastrointestinal: Yes Abdominal Hernia, Liver Disease/Jaundice, Pancreatitis, Polyps Musculoskeletal: Yes (COCCYX-REMOVED; MULTIPLE KNEE SURGERIES, ) Chronic Back Pain Endocrine: Yes (CHRONIC PANCREATITIS; OBESITY) HEENT: No Loss of Vision: Denies Hearing Impairment: Denies Cancer: Yes Kidney Did You Recieve Any Treatments: Yes What Type of Treatment Did You: Surgical Intervention Psychosocial: Yes Anxiety, Depression Integumentary: Yes Herpes Blood Disorders: No Adverse Reaction/Blood Tranf: No (N/A) Family Medical History Cardiovascular disease 19 FATHER Completed stroke 19 FATHER Diabetes mellitus 19 FATHER Hypercholesterolemia 19 FATHER 19 MOTHER Hypertension 19 FATHER 19 MOTHER Neoplasm 19 MOTHER Psychosocial problem 19 FATHER 19 MOTHER No Pertinent Family Hx, Cancer, Diabetes, Hypertension Physical Exam Vital Signs Vital Signs - First Documented 04/07/19 11:45 Temp 36.8 Pulse 65 Resp 20 B/P (MAP) 122/81 (95) Pulse Ox 98 O2 Delivery Room Air Capillary Refill : Less Than 3 Seconds Height/Weight/BMI Height: 5'3.00" Weight: 246lbs. 0oz. 111.204836qa; 44.00 BMI Method:Stated General Appearance: WD/WN, no apparent distress HEENT: PERRL/EOMI, normal ENT inspection Respiratory: no respiratory distress, no accessory muscle use Gastrointestinal: normal bowel sounds, soft Extremities: normal range of motion, non-tender Neurologic/Psychiatric: alert, normal mood/affect, oriented x 3 Skin: normal color, warm/dry Progress/Results/Core Measures Results/Orders Lab Results Laboratory Tests Test 04/07/19 11:46 04/07/19 13:05 Range/Units Urine Color YELLOW Urine Clarity CLEAR Urine pH 6.5 5-9 Urine Specific [place] 1.010 L 1.016-1.022 Urine Protein NEGATIVE NEGATIVE Urine Glucose (UA) NEGATIVE NEGATIVE Urine Ketones NEGATIVE NEGATIVE Urine Nitrite NEGATIVE NEGATIVE Urine Bilirubin NEGATIVE NEGATIVE Urine Urobilinogen NORMAL NORMAL MG/DL Urine Leukocyte Esterase NEGATIVE NEGATIVE Urine RBC (Auto) NEGATIVE NEGATIVE Urine RBC NONE /HPF Urine WBC 5-10 H /HPF Urine Squamous Epithelial Cells 25-50 H /HPF Urine Crystals NONE /LPF Urine Bacteria MODERATE H /HPF Urine Casts NONE /LPF Urine Mucus NEGATIVE /LPF Urine Culture Indicated YES White Blood Count 7.7 4.3-11.0 10^3/uL Red Blood Count 4.66 4.35-5.85 10^6/uL Hemoglobin 12.2 11.5-16.0 G/DL Hematocrit 38 35-52 % Mean Corpuscular Volume 82 80-99 FL Mean Corpuscular Hemoglobin 26 25-34 PG Mean Corpuscular Hemoglobin Concent 32 32-36 G/DL Red Cell Distribution Width 14.9 H 10.0-14.5 % Platelet Count 252 130-400 10^3/uL Mean Platelet Volume 9.2 7.4-10.4 FL Neutrophils (%) (Auto) 64 42-75 % Lymphocytes (%) (Auto) 29 12-44 % Monocytes (%) (Auto) 4 0-12 % Eosinophils (%) (Auto) 3 0-10 % Basophils (%) (Auto) 0 0-10 % Neutrophils # (Auto) 4.9 1.8-7.8 X 10^3 Lymphocytes # (Auto) 2.3 1.0-4.0 X 10^3 Monocytes # (Auto) 0.3 0.0-1.0 X 10^3 Eosinophils # (Auto) 0.2 0.0-0.3 10^3/uL Basophils # (Auto) 0.0 0.0-0.1 10^3/uL Micro Results Microbiology 04/07/19 Urine Culture - Preliminary, Resulted Culture In Progress My Orders Orders - GEORGES FINN APRN Ua Culture If Indicated (04/07/19 12:43) Cbc With Automated Diff (04/07/19 12:43) Abdomen/Kub 1view (04/07/19 12:43) Ketorolac Injection (Toradol Injection) (04/07/19 12:45) Urine Culture (04/07/19 11:46) Ct Abdomen/Pelvis Wo (04/07/19 13:51) Medications Given in ED Vital Signs/I&O 04/07/19 04/07/19 11:45 15:05 Temp 36.8 36.8 Pulse 65 54 Resp 20 20 B/P (MAP) 122/81 (95) 115/79 (95) Pulse Ox 98 97 O2 Delivery Room Air Room Air Blood Pressure Mean: 95 Departure Communication (Admissions) because of xrays report of abnormal loop of bowel in LLQ, prior surgeries, will proceed with ct imaging. Impression Primary Impression: Abdominal wall pain Disposition: HOME, SELF-CARE Condition: Stable Departure-Patient Inst. Decision time for Depature: 14:56 Referrals: CARMEN GIBBS MD (PCP/Family) Primary Care Physician Patient Instructions: No Instuctions Given Add. Discharge Instructions: 1. Return to ER for any concerns 2. Follow-up with your doctor next week 3. GEORGES FINN APRN Apr 07, 2019 12:48
[2019-04-07 12:49] LABS: BILIRUBIN,URINE NEGATIVE (NEGATIVE); CLARITY,URINE CLEAR; COLOR,URINE YELLOW; GLUCOSE, URINE (UA) NEGATIVE (NEGATIVE); KETONES,URINE NEGATIVE (NEGATIVE); LEUKOCYTE ESTERASE ,URINE NEGATIVE (NEGATIVE); NITRITE,URINE NEGATIVE (NEGATIVE); PH,URINE 6.5 (5-9); PROTEIN,URINE NEGATIVE (NEGATIVE)
[2019-04-07 13:03] LABS: BACTERIA,URINE MODERATE /HPF; SQUAMOUS EPITHELIAL CELL,UR 25-50 /HPF
[2019-04-07 13:22] LABS: BASOPHILS % (AUTO) 0 % (0-10); EOSINOPHILS # (AUTO) 0.2 10^3/uL (0.0-0.3); EOSINOPHILS % (AUTO) 3 % (0-10); HEMATOCRIT 38 % (35-52); HEMOGLOBIN 12.2 G/DL (11.5-16.0); LYMPHOCYTES # (AUTO) 2.3 X 10^3 (1.0-4.0); LYMPHOCYTES % (AUTO) 29 % (12-44); MEAN CORPUSCULAR HEMOGLOBIN 26 PG (25-34); MEAN CORPUSCULAR HGB CONC 32 G/DL (32-36); MEAN CORPUSCULAR VOLUME 82 FL (80-99); MEAN PLATELET VOLUME 9.2 FL (7.4-10.4); MONOCYTES # (AUTO) 0.3 X 10^3 (0.0-1.0); MONOCYTES % (AUTO) 4 % (0-12); NEUTROPHILS # (AUTO) 4.9 X 10^3 (1.8-7.8); NEUTROPHILS % (AUTO) 64 % (42-75); PLATELET COUNT 252 10^3/uL (130-400); RED CELL DISTRIBUTION WIDTH 14.9 % (10.0-14.5); WHITE BLOOD COUNT 7.7 10^3/uL (4.3-11.0)
--- NOTE | 2019-04-07 13:34 | Diagnostic Imaging Report ---
PATIENT HISTORY: Left abdominal pain for two days. TECHNIQUE: Two frontal views of the abdomen. COMPARISON: 03/22/2019. FINDINGS: There is a mildly prominent loop of small bowel in the left abdomen. A small amount of stool and air is seen in the colon. No large collection of free air is seen. Anastomotic sutures are seen in the abdomen as well as surgical clips. No acute osseous abnormality is seen. IMPRESSION: Prominent loop of small bowel in the left abdomen is nonspecific, could represent a focal ileus. This is in the region of the anastomotic sutures. Dictated by: Dictated on workstation # [id number]
--- NOTE | 2019-04-07 14:44 | Diagnostic Imaging Report ---
PROCEDURE: CT abdomen and pelvis without contrast. TECHNIQUE: Multiple contiguous axial images were obtained through the abdomen and pelvis without the use of intravenous contrast. Auto Exposure Controls were utilized during the CT exam to meet ALARA standards for radiation dose reduction. INDICATION: Abdominal pain with movement. Nausea. History of left kidney resection. COMPARISON: 11/18/2018. FINDINGS: The heart is unremarkable. The included lung bases are clear. There is hepatic steatosis with hepatosplenomegaly. The gallbladder is surgically absent. No intra or extrahepatic biliary dilation is seen. Multiple splenules are noted in the left upper quadrant. The left kidney is surgically absent. The right kidney is unremarkable on noncontrast CT appearance. The pancreas and adrenal glands have a normal noncontrast CT appearance. There is no pathologically enlarged mesenteric or retroperitoneal adenopathy. The bowel loops are nondilated. The appendix is surgically absent. There is no free fluid or free air. The osseous structures are age-appropriate. The bladder has an unremarkable appearance. There is no free air, loculated collection, or adenopathy in the pelvis. IMPRESSION: 1. Hepatosplenomegaly with hepatic steatosis. 2. Surgically absent left kidney. The right kidney has an unremarkable noncontrast CT appearance. Dictated by: Dictated on workstation # [id number]
[2019-04-07 15:05] VITALS: BP 115/79
== END 2019-04-07 15:06 | disposition home or self-care (01) ==
LOC: EDUNIT# 10:17 → ER 10:18
DX: R10.32 Left lower quadrant pain (principal); I10 Essential (primary) hypertension; J45.909 Unspecified asthma, uncomplicated; F41.9 Anxiety disorder, unspecified; F32.9 Major depressive disorder, single episode, unspecified; G43.909 Migraine, unspecified, not intractable, without status migrainosus; E66.9 Obesity, unspecified; Z85.528 Personal history of other malignant neoplasm of kidney; Z87.440 Personal history of urinary (tract) infections; Z87.19 Personal history of other diseases of the digestive system; Z90.89 Acquired absence of other organs; Z90.49 Acquired absence of other specified parts of digestive tract; Z68.41 Body mass index [BMI] 40.0-44.9, adult; Z90.710 Acquired absence of both cervix and uterus; Z90.5 Acquired absence of kidney; Z88.5 Allergy status to narcotic agent; Z88.0 Allergy status to penicillin; Z88.1 Allergy status to other antibiotic agents; Z79.52 Long term (current) use of systemic steroids; Z82.49 Family history of ischemic heart disease and other diseases of the circulatory system
CPT/HCPCS: 36415; 74018; 74176; 81000; 85025; 87088

== ENCOUNTER → 2019-04-30 | Outpatient (CLI) | payer MEDICARE, MEDICAID ==
--- NOTE | 2019-04-30 12:55 | Diagnostic Imaging Report ---
PROCEDURE: US Thyroid. TECHNIQUE: Multiple real-time grayscale images were obtained of the thyroid in various projections. INDICATION:Thyroid cysts. CORRELATION is made with a neck CT from 03/31/2019. FINDINGS: Right lobe of the thyroid measures 5.5 x 1.7 x 1.6 cm and the left lobe measures 4.0 x 1.1 x 1.5 cm. Isthmus is 4 mm in thickness. Both lobes of the thyroid show homogeneous echotexture. No discrete thyroid mass is identified. There is a tiny cyst in the midline of the neck above the thyroid measuring approximately 4 mm in size. This could potentially represent a thyroglossal duct cyst. No other abnormalities are seen. IMPRESSION: 1. No evidence of a thyroid mass. 2. A tiny cyst midline anterior neck above the thyroid, perhaps a small thyroglossal duct cyst. Dictated by: Dictated on workstation # [id number]
== END ==
LOC: RAD 07:51
PROVIDERS: ATTEND Otolaryngology Otolaryngology/Facial Plastic Surgery
DX: E04.1 Nontoxic single thyroid nodule (principal)
CPT/HCPCS: 76536

== ENCOUNTER 2019-05-12 12:08 | Emergency (ER) | payer MEDICARE, MEDICAID ==
[~2019-05-12] VITALS: Ht 157 cm; Wt 118.0 kg
[2019-05-12] MEDS ORDERED: NS IV 1000 ML 1,000 ML IV SCH (12:35)
[2019-05-12 12:44] LABS: BASOPHILS % (AUTO) 0 % (0-10); EOSINOPHILS # (AUTO) 0.2 10^3/uL (0.0-0.3); EOSINOPHILS % (AUTO) 2 % (0-10); HEMATOCRIT 39 % (35-52); HEMOGLOBIN 12.6 G/DL (11.5-16.0); LYMPHOCYTES # (AUTO) 2.2 X 10^3 (1.0-4.0); LYMPHOCYTES % (AUTO) 27 % (12-44); MEAN CORPUSCULAR HEMOGLOBIN 26 PG (25-34); MEAN CORPUSCULAR HGB CONC 32 G/DL (32-36); MEAN CORPUSCULAR VOLUME 81 FL (80-99); MEAN PLATELET VOLUME 9.4 FL (7.4-10.4); MONOCYTES # (AUTO) 0.4 X 10^3 (0.0-1.0); MONOCYTES % (AUTO) 4 % (0-12); NEUTROPHILS # (AUTO) 5.4 X 10^3 (1.8-7.8); NEUTROPHILS % (AUTO) 66 % (42-75); PLATELET COUNT 253 10^3/uL (130-400); RED CELL DISTRIBUTION WIDTH 14.8 % (10.0-14.5); WHITE BLOOD COUNT 8.1 10^3/uL (4.3-11.0)
[2019-05-12] MEDS ORDERED: ONDANSETRON 4 MG/2 ML (SDV) Z0FRAN IVP ONE (12:45)
--- NOTE | 2019-05-12 13:00 | ED Abdominal Pain ---
General Chief Complaint: Abdominal/GI Problems Stated Complaint: NAUSEA/VOMITTING Nursing Triage Note: PT CO OF ABD PAIN N/V SINCE LAST NITE STATES HAS HAD NO BM SINCE SATURDAY Sepsis Screen: No Definite Risk History of Present Illness Date Seen by Provider: May 12, 2019 Time Seen by Provider: 12:35 Initial Comments This 34 year old patient comes to the ER reporting abdominal pain, nausea and vomiting. She reports this is a chronic problem and nothing is worse today than normal for her. This morning at 10 AM she took some Zofran for nausea without any relief. Reports her last BM 2 days ago. She denies any chest pain or fever or chills. Denies any urinary burning, urgency or pain, denies any vaginal discharge. Hx. appendectomy and cholecystectomy. Timing/Duration: Constant, Other (Chronic) Severity/Quality: Moderate, Aching Location: RUQ, LLQ, Epigastric Radiation: No Radiation Activities at Onset: None Modifying Factors: Worsens With Eating, Worsens With Movement, Worsens With Palpation, Worsens With Vomiting Associated Symptoms: Nausea/Vomiting Allergies and Home Medications Allergies Coded Allergies: fentanyl (Verified Allergy, Unknown, 10/16/18) meperidine (Verified Allergy, Unknown, 10/16/18) penicillin G (Verified Allergy, Unknown, 10/16/18) vancomycin (Unverified Adverse Reaction, Intermediate, severe itching, 10/16/18) Home Medications Benzonatate 100 Mg Capsule, 1-2 TAB PO TID Prescribed by: YAN CHAPARRO on 01/31/19516 Cefprozil 500 Mg Tablet, 500 MG PO BID Prescribed by: YAN CHAPARRO on 01/31/19516 Cyanocobalamin 1,000 Mcg/Ml Inj, 1,000 MCG IJ MONTHLY, (Reported) Estradiol 1 Mg Tablet, 1 MG PO HS, (Reported) Furosemide 20 Mg Tablet, 20 MG PO DAILY Prescribed by: GEORGES FINN on 03/31/19 1127 Guaifenesin/Dextromethorphan 1 Each Tbmp.12hr, 1 EACH PO BID Prescribed by: YAN CHAPARRO on 01/31/19516 Hydrocodone/Acetaminophen 1 Each Tablet, 1 EA PO Q6HR PRN for PAIN-MODERATE Prescribed by: LINDSEY MARROQUIN on 10/23/18 1307 Methylprednisolone 4 Mg Tab.ds.pk, 4 MG PO UD Prescribed by: YAN CHAPARRO on 01/31/19 0517 Metoprolol Succinate 25 Mg Tab.er.24h, 25 MG PO HS, (Reported) Nitrofurantoin Monohyd/M-Cryst 100 Mg Capsule, 1 TAB PO BID Prescribed by: DEMETRIO KAY on 01/26/19 2140 Omeprazole 40 Mg Capsule.dr, 40 MG PO DAILY, (Reported) Ondansetron 8 Mg Tab.rapdis, 8 MG PO BID PRN for NAUSEA/VOMITING-1ST LINE, (Reported) Promethazine HCl 25 Mg Tablet, 25 MG PO Q6H PRN for NAUSEA/VOMITING Prescribed by: DEMETRIO KAY on 11/15/18 1639 Promethazine HCl 25 Mg Tablet, 25 MG PO Q6H PRN for NAUSEA/VOMITING Prescribed by: MAKAYLA HAWKINS on 03/22/19 0852 Promethazine HCl 25 Mg Tablet, 25 MG PO Q6H PRN for NAUSEA/VOMITING Prescribed by: GEOVANI HERNANDEZ on 05/12/19 1452 Ropinirole HCl 4 Mg Tablet, 4 MG PO HS, (Reported) Sertraline HCl 50 Mg Tablet, 50 MG PO HS, (Reported) Tizanidine HCl 4 Mg Tablet, 4 MG PO TID PRN for MUSCLE SPASMS, (Reported) Patient Home Medication List Home Medication List Reviewed: Yes Review of Systems Review of Systems Constitutional: no symptoms reported, see HPI Respiratory: No Symptoms Reported Cardiovascular: No Symptoms Reported Gastrointestinal: See HPI, Abdomen Distended, Abdominal Pain, Nausea, Vomiting Genitourinary: Denies Burning, Denies Discharge, Denies Frequency, Denies Flank Pain, Denies Pain, Denies Urgency Musculoskeletal: no symptoms reported All Other Systems Reviewed Negative Unless Noted: Yes Past Yjdospz-Wgjtlb-Ibqyip Hx Past Med/Social Hx: Reviewed Nursing Past Med/Soc Hx Patient Social History Alcohol Use: Denies Use Recreational Drug Use: No Smoking Status: Former Smoker Type Used: Cigarettes 2nd Hand Smoke Exposure: No Recent Foreign Travel: No Contact w/Someone Who Travel: No Recent Infectious Disease Expo: No Recent Hopitalizations: No Physical Abuse: No Sexual Abuse: No Immunizations Up To Date Tetanus Booster (TDap): Unknown PED Vaccines UTD: No Date of Pneumonia Vaccine: May 17, 2012 Date of Influenza Vaccine: Jul 03, 2012 Seasonal Allergies Seasonal Allergies: Yes (MILD) Past Medical History Surgeries: Yes Abdominal, Adenoidectomy, Appendectomy, Gallbladder, 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, Nephrectomy, Orthopedic, Tonsillectomy Respiratory: Yes Asthma Currently Using CPAP: No Currently Using BIPAP: No Cardiac: Yes Hypertension Neurological: Yes (RESTLESS LEG SYNDROME) Headaches /Migraines 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: Yes (HX ENDOMETRIOSIS ) 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 Sexually Transmitted Disease: No HIV/AIDS: No Genitourinary: Yes (L KIDNEY REMOVED FOR TUMOR-MALIGNANT;) UTI-Chronic Gastrointestinal: Yes Abdominal Hernia, Liver Disease/Jaundice, Pancreatitis, Polyps Musculoskeletal: Yes (COCCYX-REMOVED; MULTIPLE KNEE SURGERIES, ) Chronic Back Pain Endocrine: Yes (CHRONIC PANCREATITIS; OBESITY) HEENT: No Loss of Vision: Denies Hearing Impairment: Denies Cancer: Yes Kidney Did You Recieve Any Treatments: Yes What Type of Treatment Did You: Surgical Intervention Psychosocial: Yes Anxiety, Depression Integumentary: Yes Herpes Blood Disorders: No Adverse Reaction/Blood Tranf: No (N/A) Family Medical History Cardiovascular disease 19 FATHER Completed stroke 19 FATHER Diabetes mellitus 19 FATHER Hypercholesterolemia 19 FATHER 19 MOTHER Hypertension 19 FATHER 19 MOTHER Neoplasm 19 MOTHER Psychosocial problem 19 FATHER 19 MOTHER No Pertinent Family Hx, Cancer, Diabetes, Hypertension Physical Exam Vital Signs Vital Signs - First Documented 05/12/19 05/12/19 12:15 14:59 Temp 36.8 Pulse 94 Resp 20 B/P (MAP) 150/77 (101) Pulse Ox 97 O2 Delivery Room Air Capillary Refill : Less Than 3 Seconds Height/Weight/BMI Height: 5'3.00" Weight: 246lbs. 0oz. 111.668762gw; 47.00 BMI Method:Stated General Appearance: WD/WN, no apparent distress HEENT: TMs normal, pharynx normal, other (oral mucosa pink and moist) Respiratory: chest non-tender, lungs clear, normal breath sounds Cardiovascular: normal peripheral pulses, regular rate, rhythm Gastrointestinal: normal bowel sounds, soft, no pulsatile mass; No guarding, No rebound; tenderness (generalized) Neurologic/Psychiatric: no motor/sensory deficits, alert, normal mood/affect, oriented x 3 Skin: normal color, warm/dry; No jaundice, No pallor Lymphatic: no adenopathy Focused Exam Respiratory: Lungs Clear Cardiovascular: Regular Rate, Rhythm Skin: normal color, warm/dry Progress/Results/Core Measures Results/Orders Lab Results Laboratory Tests Test 05/12/19 12:30 05/12/19 13:53 Range/Units White Blood Count 8.1 4.3-11.0 10^3/uL Red Blood Count 4.87 4.35-5.85 10^6/uL Hemoglobin 12.6 11.5-16.0 G/DL Hematocrit 39 35-52 % Mean Corpuscular Volume 81 80-99 FL Mean Corpuscular Hemoglobin 26 25-34 PG Mean Corpuscular Hemoglobin Concent 32 32-36 G/DL Red Cell Distribution Width 14.8 H 10.0-14.5 % Platelet Count 253 130-400 10^3/uL Mean Platelet Volume 9.4 7.4-10.4 FL Neutrophils (%) (Auto) 66 42-75 % Lymphocytes (%) (Auto) 27 12-44 % Monocytes (%) (Auto) 4 0-12 % Eosinophils (%) (Auto) 2 0-10 % Basophils (%) (Auto) 0 0-10 % Neutrophils # (Auto) 5.4 1.8-7.8 X 10^3 Lymphocytes # (Auto) 2.2 1.0-4.0 X 10^3 Monocytes # (Auto) 0.4 0.0-1.0 X 10^3 Eosinophils # (Auto) 0.2 0.0-0.3 10^3/uL Basophils # (Auto) 0.0 0.0-0.1 10^3/uL Sodium Level 141 135-145 MMOL/L Potassium Level 4.5 3.6-5.0 MMOL/L Chloride Level 105 98-107 MMOL/L Carbon Dioxide Level 25 21-32 MMOL/L Anion Gap 11 5-14 MMOL/L Blood Urea Nitrogen 14 7-18 MG/DL Creatinine 0.88 0.60-1.30 MG/DL Estimat Glomerular Filtration Rate > 60 BUN/Creatinine Ratio 16 Glucose Level 132 H 70-105 MG/DL Calcium Level 9.4 8.5-10.1 MG/DL Corrected Calcium 9.2 8.5-10.1 MG/DL Total Bilirubin 0.2 0.1-1.0 MG/DL Aspartate Amino Transf (AST/SGOT) 41 H 5-34 U/L Alanine Aminotransferase (ALT/SGPT) 24 0-55 U/L Alkaline Phosphatase 68 40-136 U/L Total Protein 7.4 6.4-8.2 GM/DL Albumin 4.2 3.2-4.5 GM/DL Amylase Level 61 25-125 U/L Lipase 52 8-78 U/L Urine Color YELLOW Urine Clarity CLEAR Urine pH 7.0 5-9 Urine Specific [place] 1.010 L 1.016-1.022 Urine Protein NEGATIVE NEGATIVE Urine Glucose (UA) NEGATIVE NEGATIVE Urine Ketones NEGATIVE NEGATIVE Urine Nitrite NEGATIVE NEGATIVE Urine Bilirubin NEGATIVE NEGATIVE Urine Urobilinogen 0.2 < = 1.0 MG/DL Urine Leukocyte Esterase NEGATIVE NEGATIVE Urine RBC (Auto) NEGATIVE NEGATIVE Urine RBC NONE /HPF Urine WBC RARE /HPF Urine Squamous Epithelial Cells 2-5 /HPF Urine Crystals NONE /LPF Urine Bacteria FEW H /HPF Urine Casts NONE /LPF Urine Mucus NEGATIVE /LPF Urine Culture Indicated NO My Orders Orders - GEOVANI HERNANDEZ Comprehensive Metabolic Panel (05/12/19 12:34) Lipase (05/12/19 12:34) Amylase (05/12/19 12:34) Ua Culture If Indicated (05/12/19 12:34) Cbc With Automated Diff (05/12/19 12:34) Ondansetron Injection (Zofran Injectio (05/12/19 12:45) Ed Iv/Invasive Line Start (05/12/19 12:35) Ns Iv 1000 Ml (Sodium Chloride 0.9%) (05/12/19 12:35) Promethazine Injection (Phenergan Injec (05/12/19 13:30) Medications Given in ED Current Medications Medications Dose Ordered Sig/Neal Route Start Time Stop Time Status Last Admin Dose Admin Ondansetron HCl 8 mg ONCE ONCE IVP 05/12/19 12:45 05/12/19 12:46 DC 05/12/19 12:48 8 MG Promethazine HCl 12.5 mg ONCE ONCE IVP 05/12/19 13:30 05/12/19 13:31 DC 05/12/19 13:26 12.5 MG Vital Signs/I&O 05/12/19 05/12/19 12:15 14:59 Temp 36.8 36.8 Pulse 94 73 Resp 20 20 B/P (MAP) 150/77 (101) 118/72 (101) Pulse Ox 97 O2 Delivery Room Air Blood Pressure Mean: 101 POS Progress Progress Note : Time: 13:55 Progress Note The patient continued to experience nausea and vomiting. Phenergan 12.5 mg IV given. Reports feeling a bit better after the Phenergan was given. Awaiting for UA results. 1435: The patient reports feeling better, denies vomiting, mild nausea remains. UA results are negative for UTI or dehydration. At this time is felt the patient needs gastric rest and follow up with surgeon and other specialist. Discharge instructions and return precautions reviewed. Departure Impression Primary Impression: Abdominal pain Qualified Codes: R10.84 - Generalized abdominal pain Additional Impression: Nausea and vomiting Qualified Codes: R11.14 - Bilious vomiting Disposition: HOME, SELF-CARE Condition: Improved Departure-Patient Inst. Decision time for Depature: 14:45 Referrals: CARMEN GIBBS MD (PCP/Family) Primary Care Physician Patient Instructions: Acute Abdomen (Belly Pain), Adult (DC), Nausea and Vomiting, Adult Add. Discharge Instructions: Do not eat or drink for 2-3 hours, then clear liquids for 6-8 hours, then bland diet. Follow up with Dr. Marroquin if symptoms are not improving or worsen. Keep appts with other specialist. Use Phenergan every 6-8 hours for nausea and vomiting. Return to ED for new, urgent health care needs. All discharge instructions reviewed with patient and/or family. Voiced u nderstanding. Scripts Promethazine HCl (Promethazine Tablet) 25 Mg Tablet 25 MG PO Q6H PRN for NAUSEA/VOMITING, #15 TAB 0 Refills Prov: GEOVANI HERNANDEZ 05/12/19 Copy Copies To 1: LINDSEY MARROQUIN AMY ARNP May 12, 2019 13:00 POS
[2019-05-12 13:07] LABS: ALANINE AMINOTRANSFERASE 24 U/L (0-55); ALBUMIN 4.2 GM/DL (3.2-4.5); ALKALINE PHOSPHATASE 68 U/L (40-136); AMYLASE 61 U/L (25-125); BILIRUBIN,TOTAL 0.2 MG/DL (0.1-1.0); BUN/CREATININE RATIO 16; CALCIUM 9.4 MG/DL (8.5-10.1); CARBON DIOXIDE 25 MMOL/L (21-32); CHLORIDE 105 MMOL/L (98-107); CREATININE SERUM 0.88 MG/DL (0.60-1.30); GFR ESTIMATED > 60; GLUCOSE 132 MG/DL (70-105); LIPASE 52 U/L (8-78); POTASSIUM 4.5 MMOL/L (3.6-5.0); SODIUM 141 MMOL/L (135-145); TOTAL PROTEIN 7.4 GM/DL (6.4-8.2)
[2019-05-12] MEDS ORDERED: PROMETHAZINE INJ 25 MG/ML (PHENERGAN) AMP IVP ONE (13:30)
[2019-05-12 14:00] LABS: BILIRUBIN,URINE NEGATIVE (NEGATIVE); CLARITY,URINE CLEAR; COLOR,URINE YELLOW; GLUCOSE, URINE (UA) NEGATIVE (NEGATIVE); KETONES,URINE NEGATIVE (NEGATIVE); LEUKOCYTE ESTERASE ,URINE NEGATIVE (NEGATIVE); NITRITE,URINE NEGATIVE (NEGATIVE); PROTEIN,URINE NEGATIVE (NEGATIVE)
[2019-05-12 14:12] LABS: BACTERIA,URINE FEW /HPF; WBC,URINE RARE /HPF
[2019-05-12] MEDS ORDERED: PROM25TA14 PO (14:52)
[2019-05-12 14:59] VITALS: BP 118/72
== END 2019-05-12 14:58 | disposition home or self-care (01) ==
LOC: EDUNIT# 12:08 → ER 12:10
DX: R10.84 Generalized abdominal pain (principal); R11.2 Nausea with vomiting, unspecified; J45.909 Unspecified asthma, uncomplicated; I10 Essential (primary) hypertension; G43.909 Migraine, unspecified, not intractable, without status migrainosus; E66.9 Obesity, unspecified; F32.9 Major depressive disorder, single episode, unspecified; F41.9 Anxiety disorder, unspecified; Z85.528 Personal history of other malignant neoplasm of kidney; Z87.440 Personal history of urinary (tract) infections; Z90.49 Acquired absence of other specified parts of digestive tract; Z88.0 Allergy status to penicillin; Z88.1 Allergy status to other antibiotic agents; Z88.5 Allergy status to narcotic agent; Z79.52 Long term (current) use of systemic steroids; Z87.891 Personal history of nicotine dependence; Z90.89 Acquired absence of other organs; Z90.710 Acquired absence of both cervix and uterus; Z90.5 Acquired absence of kidney; Z82.49 Family history of ischemic heart disease and other diseases of the circulatory system; Z68.42 Body mass index [BMI] 45.0-49.9, adult
CPT/HCPCS: 36415; 80053; 81000; 82150; 83690; 85025; 96361; 96374; 96375

== ENCOUNTER 2019-05-22 12:35 | Emergency (ER) | payer MEDICARE, MEDICAID ==
[~2019-05-22] VITALS: Ht 160 cm; Wt 116.4 kg
[~2019-05-22 12:35] MED LIST changes: -DIAZ5TAB3 PO; +DIAZ5TAB49 PO; -FLUO20CA25 PO; +FLUO20CA45 PO; -METO-387 PO; +MTP25TSR PO; +OMEP40CA27 PO; -TRAM50TA2; +TRM50T
--- NOTE | 2019-05-22 13:38 | ED Upper Extremity ---
General Chief Complaint: Laceration Stated Complaint: WRIST CUT Nursing Triage Note: PATIENT STATES THAT SOME CANDLESTICKS FELL OFF THE WALL AND SHE CAUGHT THEM WITH HER HAND CAUAISN A SMALL CUT ON HER ARM/WRIST AREA. BLEEDING CONTROLLED. PATIENT IS CONCERNED THERE MAY STILL BE GLASS IN HER ARM. Nursing Sepsis Screen: No Definite Risk Source: patient Exam Limitations: no limitations History of Present Illness Date Seen by Provider: May 22, 2019 Time Seen by Provider: 13:37 Initial Comments To ER per private vehicle with reports of laceration to the wrist after a candlestick boston fell and she attempted to catch it, concerned piece of glass may still be in the skin. Onset: just prior to arrival Severity: moderate Pain/Injury Location: left shoulder Method of Injury: fell Modifying Factors: Worse With Movement Allergies and Home Medications Allergies Coded Allergies: fentanyl (Verified Allergy, Unknown, 10/16/18) meperidine (Verified Allergy, Unknown, 10/16/18) penicillin G (Verified Allergy, Unknown, 10/16/18) vancomycin (Unverified Adverse Reaction, Intermediate, severe itching, 10/16/18) Home Medications Benzonatate 100 Mg Capsule, 1-2 TAB PO TID Prescribed by: YAN CHAPARRO on 01/31/19516 Cefprozil 500 Mg Tablet, 500 MG PO BID Prescribed by: YAN CHAPARRO on 01/31/19516 Cyanocobalamin 1,000 Mcg/Ml Inj, 1,000 MCG IJ MONTHLY, (Reported) Estradiol 1 Mg Tablet, 1 MG PO HS, (Reported) Furosemide 20 Mg Tablet, 20 MG PO DAILY Prescribed by: GEORGES FINN on 03/31/19 1127 Guaifenesin/Dextromethorphan 1 Each Tbmp.12hr, 1 EACH PO BID Prescribed by: YAN CHAPARRO on 01/31/19516 Hydrocodone/Acetaminophen 1 Each Tablet, 1 EA PO Q6HR PRN for PAIN-MODERATE Prescribed by: LINDSEY MARROQUIN on 10/23/18 1307 Methylprednisolone 4 Mg Tab.ds.pk, 4 MG PO UD Prescribed by: YAN CHAPARRO on 01/31/19516 Metoprolol Succinate 25 Mg Tab.er.24h, 25 MG PO HS, (Reported) Nitrofurantoin Monohyd/M-Cryst 100 Mg Capsule, 1 TAB PO BID Prescribed by: DEMETRIO KAY on 01/26/19 2140 Omeprazole 40 Mg Capsule.dr, 40 MG PO DAILY, (Reported) Ondansetron 8 Mg Tab.rapdis, 8 MG PO BID PRN for NAUSEA/VOMITING-1ST LINE, (Reported) Promethazine HCl 25 Mg Tablet, 25 MG PO Q6H PRN for NAUSEA/VOMITING Prescribed by: DEMETRIO KAY on 11/15/18 1639 Promethazine HCl 25 Mg Tablet, 25 MG PO Q6H PRN for NAUSEA/VOMITING Prescribed by: MAKAYLA HAWKINS on 03/22/19 0852 Promethazine HCl 25 Mg Tablet, 25 MG PO Q6H PRN for NAUSEA/VOMITING Prescribed by: GEOVANI HERNANDEZ on 05/12/19 1452 Ropinirole HCl 4 Mg Tablet, 4 MG PO HS, (Reported) Sertraline HCl 50 Mg Tablet, 50 MG PO HS, (Reported) Tizanidine HCl 4 Mg Tablet, 4 MG PO TID PRN for MUSCLE SPASMS, (Reported) Patient Home Medication List Home Medication List Reviewed: Yes Review of Systems Constitutional: see HPI EENTM: see HPI Respiratory: no symptoms reported Cardiovascular: no symptoms reported Genitourinary: no symptoms reported Musculoskeletal: no symptoms reported Skin: no symptoms reported Psychiatric/Neurological: No Symptoms Reported Past Vhkniej-Rfcuoh-Yzrjaf Hx Patient Social History Alcohol Use: Denies Use Recreational Drug Use: No Smoking Status: Never a Smoker Type Used: Cigarettes 2nd Hand Smoke Exposure: No Recent Foreign Travel: No Contact w/Someone Who Travel: No Recent Infectious Disease Expo: No Recent Hopitalizations: No Immunizations Up To Date Tetanus Booster (TDap): Unknown PED Vaccines UTD: No Date of Pneumonia Vaccine: May 17, 2012 Date of Influenza Vaccine: Jul 03, 2012 Seasonal Allergies Seasonal Allergies: Yes (MILD) Past Medical History Surgeries: Yes Abdominal, Adenoidectomy, Appendectomy, Gallbladder, 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, Nephrectomy, Orthopedic, Tonsillectomy Respiratory: Yes Asthma Currently Using CPAP: No Currently Using BIPAP: No Cardiac: Yes Hypertension Neurological: Yes (RESTLESS LEG SYNDROME) Headaches /Migraines 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: Yes (HX ENDOMETRIOSIS ) 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 Sexually Transmitted Disease: No HIV/AIDS: No Genitourinary: Yes (L KIDNEY REMOVED FOR TUMOR-MALIGNANT;) UTI-Chronic Gastrointestinal: Yes Abdominal Hernia, Liver Disease/Jaundice, Pancreatitis, Polyps Musculoskeletal: Yes (COCCYX-REMOVED; MULTIPLE KNEE SURGERIES, ) Chronic Back Pain Endocrine: Yes (CHRONIC PANCREATITIS; OBESITY) HEENT: No Loss of Vision: Denies Hearing Impairment: Denies Cancer: Yes Kidney Did You Recieve Any Treatments: Yes What Type of Treatment Did You: Surgical Intervention Psychosocial: Yes Anxiety, Depression Integumentary: Yes Herpes Blood Disorders: No Adverse Reaction/Blood Tranf: No (N/A) Family Medical History Cardiovascular disease 19 FATHER Completed stroke 19 FATHER Diabetes mellitus 19 FATHER Hypercholesterolemia 19 FATHER 19 MOTHER Hypertension 19 FATHER 19 MOTHER Neoplasm 19 MOTHER Psychosocial problem 19 FATHER 19 MOTHER No Pertinent Family Hx, Cancer, Diabetes, Hypertension Physical Exam Vital Signs Vital Signs - First Documented 05/22/19 13:31 Temp 36.7 Pulse 78 Resp 20 B/P (MAP) 114/78 (90) Pulse Ox 96 Capillary Refill : Less Than 3 Seconds Height, Weight, BMI Height: 5'3.00" Weight: 246lbs. 0oz. [id number]; 45.00 BMI Method:Stated General Appearance: WD/WN, no apparent distress HEENT: PERRL/EOMI, normal ENT inspection Respiratory: no respiratory distress, no accessory muscle use Gastrointestinal: normal bowel sounds, non tender Shoulder: normal inspection, non-tender Elbow/Forearm: normal inspection, non-tender Wrist: Yes pain (a 3 mm superficial laceration volarly right forearm no foreign bodies) Progress/Results/Core Measures Results/Orders Vital Signs/I&O 05/22/19 13:31 Temp 36.7 Pulse 78 Resp 20 B/P (MAP) 114/78 (90) Pulse Ox 96 Blood Pressure Mean: 90 POS Departure Impression Primary Impression: Laceration Disposition: 01 HOME, SELF-CARE Condition: Stable Departure-Patient Inst. Decision time for Depature: 13:41 Referrals: CARMEN GIBBS MD (PCP/Family) Primary Care Physician Patient Instructions: Wound Care (DC) Add. Discharge Instructions: 1. Return to ER for any concerns 2. Follow-up with your doctor next week 3. All discharge instructions reviewed with patient and/or family. Voiced understanding. GEORGES FINN APRN May 22, 2019 13:38 POS
[2019-05-22 13:47] VITALS: BP 114/78
--- OUTSIDE RECORDS SUMMARY | 2019-06-17 19:12 | XMS REPORT | Encounter Summary ---
Author Author [facility] Organization [facility] Address Unknown Phone Unavailable Care Team Providers Care Strategic Account Executive Name Role Phone Michael Sutton MD Unavailable Unavailable Mary Whittington MD PCP Jessica Valera Unavailable Maggie Puente Unavailable Unavailable Mary Telles APRN Unavailable [phone] Bam Ritter MD Unavailable Unavailable Radha Bo LPN Unavailable Unavailable Jose Sanchez MD Unavailable Reason for Visit * Reason Comments Pre-Visit Planning Encounter Details Care Team Description Date Type Department Dann Kelly MD [address] [place] [address] Pre-Visit Planning 06/09/2019 Telephone [facility] [address] [address] Social History Date Tobacco Use Types [...] encounter Miscellaneous Notes * Telephone Encounter - Kathia Giang - 06/09/2019 12:57 PM WALL TAPER HELPER Pre Visit Planning- New Patient Records received: Yes Orders have been ordered Patient active in [facility]. No appointment reminder sent. . Patient notified of upcoming appointment. Updated chart: Medication, History and Allergies MRI PACS TAPER HELPER documented in this encounter Plan of Treatment Not on filedocumented as of this encounter Visit Diagnoses Not on filedocumented in this encounter
--- OUTSIDE RECORDS SUMMARY | 2019-06-17 19:12 | XMS REPORT | Encounter Summary ---
Author Author [facility] Organization [facility] Address Unknown Phone Unavailable Care Team Providers Care Cuff Presser Name Role Phone Michael Sutton MD Unavailable Unavailable Mary Whittington MD PCP Jessica Valera Unavailable Maggie Puente Unavailable Unavailable Mary Telles APRN Unavailable [phone] Bam Ritter MD Unavailable Unavailable Radha Bo LPN Unavailable Unavailable Jose Sanchez MD Unavailable Encounter Details Care Team Description Date Type Department Dann Kelly MD [address] [facility] [place] [address] Back pain, unspecified back location, un specified back pain laterality, unspecified chronicity (Primary Dx) 06/11/2019 Orders Only [facility] [address] [place] [address] Social History Date Tobacco Use Types Packs/Day [...] as of this encounter Plan of Treatment Order Schedule Name Type Priority Associated Diag noses Expected: 06/11/2019 (Approximate), Expi res: 06/11/2020 SCOLIOSIS EOS AP/LAT Imaging Routine Back pain , unspecified back location, unspecified back pain laterality, unspecified chronicity documented as of this encounter Visit Diagnoses Diagnosis Back pain, unspecified back location, u nspecified back pain laterality, unspecified chronicity - Primary documented in this encounter
--- OUTSIDE RECORDS SUMMARY | 2019-06-17 19:12 | XMS REPORT | Encounter Summary ---
Author Author [facility] Organization [facility] Address Unknown Phone Unavailable Care Team Providers Care It Network Architect Name Role Phone Michael Sutton MD Unavailable Unavailable Mary Whittington MD PCP Jessica Valera Unavailable Maggie Puente Unavailable Unavailable Mary Tellse APRN Unavailable [phone] Bam Ritter MD Unavailable Unavailable Radha Bo LPN Unavailable Unavailable Jose Sanchez MD Unavailable Reason for Visit * Reason Comments Medication Refill Encounter Details Care Team Description Date Type Department Randy Nunez MD [address] [facility] [address] [place] [address] Medication monitoring encounter 12/29/2018 Refill [facility] [address] [place] [address] Social History Date Tobacco Use [...] to approve/ deny refill. VITAMIN B12 Order: [id number] Status: Final result Visible to patient: Yes (MyChart) Next appt: 019 at 10:30 AM in Radiology ([facility] Draw [facility]) Dx: B12 deficiency Ref Range & Units 09/02/17 1040 06/03/17 1128 Vitamin B12 180 - 914 PG/ML 495 185 Specimen Collected: 09/02/17 10:40 documented in this encounter Plan of Treatment Not on filedocumented as of this encounter Visit Diagnoses Diagnosis Medication monitoring encounter Encounter for therapeutic drug monitori ng documented in this encounter
--- OUTSIDE RECORDS SUMMARY | 2019-06-17 19:12 | XMS REPORT | Encounter Summary ---
Author Author [facility] Organization [facility] Address Unknown Phone Unavailable Care Team Providers Care Retail Custodial Associate Name Role Phone Michael Sutton MD Unavailable Unavailable Mary Whittington MD PCP Jessica Valera Unavailable Maggie Puente Unavailable Unavailable Mary Telles APRN Unavailable [phone] Bam Ritter MD Unavailable Unavailable Radha Bo LPN Unavailable Unavailable Jose Sanchez MD Unavailable Encounter Details Care Team Description Date Type Department Donald Amaya (Dennis Stephenson MD [address] [place] [address] [phone] Right knee pain, unspecified chronicity (Primary Dx) 04/27/2019 Orders Only [facility] [address] [facility] [address] [place] [address] Social History Date Tobacco Use Types Packs/Day [...] Schedule Name Type Priority Associated Diag noses Ordered: 04/27/2019 KNEE 3 VIEWS RIGHT Imaging Routine Right knee pain, unspecified chronicity documented as of this encounter Visit Diagnoses Diagnosis Right knee pain, unspecified chronicity - Primary documented in this encounter
--- OUTSIDE RECORDS SUMMARY | 2019-06-17 19:12 | XMS REPORT | Clinical Summary ---
Author Author [facility] Organization [facility] Address Unknown Phone Unavailable Care Team Providers Care Health Care Social Worker Name Role Phone Michael Sutton MD Unavailable Unavailable Mary Whittington MD PCP Jessica Valera Unavailable Maggie Puente Unavailable Unavailable Mary Telles APRN Unavailable [phone] Bam Ritter MD Unavailable Unavailable Radha Bo LPN Unavailable Unavailable Jose Sanchez MD Unavailable Source Comments Some departments are not documenting in the electronic medical record. If you d o not see the information that you expected, contact Release of Information in [facility] Information Management department at [phone] for further assistan ce in locating additional records.[facility] Allergies Comments Active Allergy Reactions Severity [...] (NORCO) 7.5/325 mg by mouth 7 tabletIndications: pain every 6 hours as needed for Pain [...] Active sertraline (ZOLOFT) 50 mg Daily 0 04/18 tablet 8 Active gabapentin (NEURONTIN) Take 100 mg 0 100 mg capsule by mouth every 8 hours. Active ondansetron (ZOFRAN ODT) DISSOLVE 1 60 tablet 2 0 8 mg rapid dissolve TABLET IN 9 tabletIndications: MOUTH TWICE Chronic nausea, Chronic DAILY. PLACE vomiting ON TONGUE TO DISSOLVE. Active omeprazole DR(+) Take one 30 capsule 5 (PRILOSEC) 40 mg capsule capsule by 9 mouth daily before breakfast. Active cyanocobalamin (RUBRAMIN) INJECT 1 ML 1 mL 3 1,000 mcg/mL (CC) 9 injectionIndications: INTRAMUSCULAR Medication monitoring LY EVERY 30 encounter DAYS 05/20/2019 Discontinued (Reorder) cyanocobalamin (VITAMIN INJECT 1 ML. 1 mL 3 0 B-12, RUBRAMIN) 1,000 INTRAMUSCULAR 9 mcg/mL LY EVERY 30 injectionIndications: DAYS Medication monitoring encounter Active Problems Problem Noted Date Other chronic pancreatitis 01/14/2018 Overview: Added automatically from request for [place] [id number] Intractable vomiting with nausea 01/14/2018 Overview: Added automatically from request for raji elery [id number] Left renal mass 04/10/2017 Renal mass 03/21/2017 Overview: Added automatically from request for raji elery [id number] 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 06/24/2013 Overview: S/P [place], BSO 11/27 Depression 06/24/2013 S/P cholecystectomy 06/24/2013 Overview: 2007 S/P appendectomy 06/24/2013 Overview: November 2012 Pancreatitis 10/23/2011 Encounters Care Team Description Date Type Specialty Dann Kelly MD Back pain, unspecified back location, un specified back pain laterality, unspecified chronicity (Primary Dx) 06/11/2019 Orders Only Orthopedic Surgery Dann Kelly MD Pre-Visit Planning 06/09/2019 Telephone Orthopedic Surgery Randy Nunez MD Medication monitoring encounter 05/20/2019 Refill Gastroenterology Donald Amaya Jp, MD Right knee pain, unspecified chronicity (Primary Dx) 04/27/2019 Orders Only Sports Medicine 04/03/2019 Hospital Radiology Encounter from Last 3 Months [...] Comments Vital Sign 115/86 08/22/2018 8:50 AM APARTMENT RENTAL CLERK Blood Pressure 89 08/22/2018 8:54 AM APARTMENT RENTAL CLERK Pulse 36.8 C (98.2 F) 08/22/2018 8:30 AM APARTMENT RENTAL CLERK Temperature 18 05/19/2018 1:06 PM APARTMENT RENTAL CLERK Respiratory Rate 96% 08/22/2018 8:53 AM APARTMENT RENTAL CLERK Oxygen Saturation - - Inhaled Oxygen Concentration 122.5 kg (270 lb) 08/22/2018 7:00 AM APARTMENT RENTAL CLERK Weight 157.5 cm (5' 2") 08/22/2018 7:00 AM APARTMENT RENTAL CLERK Height 49.38 08/22/2018 7:00 AM APARTMENT RENTAL CLERK Body Mass Index Plan of Treatment Health Maintenance Due Date Last Done Comments MEDICARE ANNUAL WELLNESS 1984 VISIT DTAP/TDAP VACCINES (1 - 1995 Tdap) HIV SCREENING 1999 PHYSICAL (COMPREHENSIVE) 2002 EXAM CERVICAL CANCER SCREENING 2014 INFLUENZA VACCINE 01/15/2019 06/03/2018 Procedures Comments Procedure Name Priority Date/Time Associated Diag nosis MRI C-SPINE EXTERNAL Routine 04/03/2019 IMAGING 12:00 AM CDT from Last 3 Months Results * MRI C-SPINE EXTERNAL IMAGING (04/03/2019 12:00 AM CDT) Specimen Narrative Performed At This order has been auto finalized and does not contain a result. from Last 3 Months Insurance Type Payer Benefit Subscriber ID Effective Phone Address Plan / Dates Group Medicare MEDICARE MEDICARE xxxxxxxxxxx 2011- PART A AND Present B AETNA MEDICAID AETNA xxxxxxxxxxx 2018-P [facility] -[id number] Advance Directives Patient Oracle Reports Developer Explanation Type Date Recorded Advance 04/10/2017 8:47 AM Directive/DPOA Date Inactivated Comments Code Status Date Activated 04/11/2017 4:57 PM Full Code 04/10/2017 5:31 PM Provider has discussed Code Status No, discussion no t w/Patient or Family? necessary based on Dx
--- OUTSIDE RECORDS SUMMARY | 2019-06-17 19:12 | XMS REPORT | Encounter Summary ---
Author Author [facility] Organization [facility] Address Unknown Phone Unavailable Care Team Providers Care Food And Nutrition Professor Name Role Phone Michael Sutton MD Unavailable Unavailable Mary Whittington MD PCP Jessica Valera Unavailable Maggie Puente Unavailable Unavailable Mary Telles APRN Unavailable [phone] Bam Ritter MD Unavailable Unavailable Radha Bo LPN Unavailable Unavailable Jose Sanchez MD Unavailable Encounter Details Care Team Description Date Type Department 04/03/2019 [facility] [address] [address] Social History Date Tobacco Use Types [...] impairment: Yes documented as of this encounter Medications at Time [...] 0 (NORCO) 7.5/325 mg by mouth tabletIndications: pain every 6 hours as needed for Pain Indications: PAIN 10/06/[address](+) Take one 30 capsule 5 (PRILOSEC) 40 mg capsule capsule by mouth daily before breakfast. 09/09/2018 ondansetron (ZOFRAN ODT) DISSOLVE 1 60 tablet 2 8 mg rapid dissolve TABLET IN tabletIndications: MOUTH TWICE Chronic nausea, Chronic DAILY. PLACE vomiting ON TONGUE TO DISSOLVE. 04/09/2018 prochlorperazine maleate Take one-half 30 tablet 1 (COMPAZINE) 10 mg tablet tablet by mouth every 6 hours as needed for Nausea or Vomiting. rOPINIRole (REQUIP) 4 mg Take 4 mg by 0 tablet mouth at bedtime daily. 05/13/2018 sertraline (ZOLOFT) 50 mg Daily 0 tablet 12/30/2018 05/20/2019 cyanocobalamin (VITAMIN INJECT 1 ML. 1 mL 3 B-12, RUBRAMIN) 1,000 INTRAMUSCULAR mcg/mL LY EVERY 30 injectionIndications: DAYS Medication monitoring encounter documented as of this encounter Plan of Treatment Not on filedocumented as of this encounter Procedures Comments Procedure Name Priority Date/Time Associated Diag nosis MRI C-SPINE EXTERNAL Routine 04/03/2019 IMAGING 12:00 AM CDT documented in this encounter Results * MRI C-SPINE EXTERNAL IMAGING (04/03/2019 12:00 AM CDT) Specimen Narrative Performed At This order has been auto finalized and does not contain a result. documented in this encounter Visit Diagnoses Not on filedocumented in this encounter
--- OUTSIDE RECORDS SUMMARY | 2019-06-17 19:12 | XMS REPORT | Encounter Summary ---
Author Author [facility] Organization [facility] Address Unknown Phone Unavailable Care Team Providers Care Online Content Developer Name Role Phone Michael Sutton MD Unavailable Unavailable Mary Whittington MD PCP Jessica Valera Unavailable Maggie Puente Unavailable Unavailable Mary Telles APRN Unavailable [phone] Bam Ritter MD Unavailable Unavailable Radha Bo LPN Unavailable Unavailable Jose Sanchez MD Unavailable Reason for Visit * Reason Comments Medication Refill Encounter Details Care Team Description Date Type Department Randy Nunez MD [address] [facility] [address] [place] [address] Medication monitoring encounter 05/20/2019 Refill [facility] [address] [place] [address] Social History Date Tobacco Use [...]
== END 2019-05-22 13:47 | disposition home or self-care (01) ==
LOC: EDUNIT# 12:35 → ER 12:36
DX: S61.512A Laceration without foreign body of left wrist, initial encounter (principal); J45.909 Unspecified asthma, uncomplicated; I10 Essential (primary) hypertension; G43.909 Migraine, unspecified, not intractable, without status migrainosus; E66.9 Obesity, unspecified; K86.1 Other chronic pancreatitis; F41.9 Anxiety disorder, unspecified; F32.9 Major depressive disorder, single episode, unspecified; Z85.528 Personal history of other malignant neoplasm of kidney; Z86.010 Personal history of colon polyps; Z87.440 Personal history of urinary (tract) infections; Z88.0 Allergy status to penicillin; Z88.1 Allergy status to other antibiotic agents; Z88.5 Allergy status to narcotic agent; Z88.8 Allergy status to other drugs, medicaments and biological substances; Z79.52 Long term (current) use of systemic steroids; Z90.49 Acquired absence of other specified parts of digestive tract; Z90.710 Acquired absence of both cervix and uterus; Z90.89 Acquired absence of other organs; Z82.49 Family history of ischemic heart disease and other diseases of the circulatory system; W26.8XXA Contact with other sharp object(s), not elsewhere classified, initial encounter

== ENCOUNTER → 2019-05-28 | Outpatient (CLI) | payer MEDICARE, MEDICAID ==
[~2019-05-28] MED LIST changes: +DIAZ5TAB3 PO; -DIAZ5TAB49 PO; +FLUO20CA25 PO; -FLUO20CA45 PO; +METO-387 PO; -MTP25TSR PO; -OMEP40CA27 PO; +TRAM50TA2; -TRM50T
--- NOTE | 2019-05-28 18:24 | Diagnostic Imaging Report ---
EXAMINATION: Bilateral upper extremity arterial Doppler. INDICATION: Thoracic outlet syndrome, left hand numbness. TECHNIQUE: Spectral and color-flow imaging of the arterial system of both upper extremities was performed. There are no prior studies available for comparison. Spectral and color-flow imaging of the subclavian and axillary arteries was performed bilaterally. The exams were conducted with the patient's arm above her head and in neutral position. FINDINGS: The images of the right upper extremity show triphasic waveforms in the subclavian artery with no significant change in velocity with change in position. On the left, there is triphasic waveform in the proximal subclavian artery. However The waveform in the distal subclavian artery changes from triphasic to monophasic and there is a moderate decrease in the velocity in the distal subclavian artery. This change may be secondary to thoracic outlet syndrome. If further imaging is desired, then CTA of the neck would be recommended. IMPRESSION: 1. There is a slight decrease in the velocity of the distal subclavian artery on the left as well as a change in the waveform with a change in position of the arm. This may be related to extrinsic bony compression of the artery. Recommendations as above. 2. There is good arterial blood flow in the right subclavian artery. Dictated by: Dictated on workstation # [id number]
== END ==
LOC: RAD 12:02
PROVIDERS: ATTEND Orthopaedic Surgery Orthopaedic Surgery of the Spine
DX: G54.0 Brachial plexus disorders (principal); M45.9 Ankylosing spondylitis of unspecified sites in spine
CPT/HCPCS: 36415; 86431; 86812; 93930

== ENCOUNTER 2019-05-29 08:40 | Emergency (ER) | payer MEDICARE, MEDICAID ==
[~2019-05-29] VITALS: Ht 160 cm; Wt 117.0 kg
--- NOTE | 2019-05-29 09:25 | NUR ---
PT STATES NO CHANGE IN MEDS
[2019-05-29] MEDS ORDERED: NS IV 1000 ML 1,000 ML IV ONE (09:57)
[2019-05-29] MEDS ORDERED: ONDANSETRON 4 MG/2 ML (SDV) Z0FRAN IVP ONE ×2 (10:00→12:15)
--- NOTE | 2019-05-29 10:06 | ED Abdominal Pain ---
General Chief Complaint: Abdominal/GI Problems Stated Complaint: ABD/BACK PAIN Nursing Triage Note: PT CO OF R LOWER ABD PAIN. PT STATES HAS SL NAUSEA HAS TO URINATE AND UNABLE TO HOLD IT Sepsis Screen: No Definite Risk Source of Information: Patient Exam Limitations: No Limitations (JOHN GREEN,JERRY STUDENT) History of Present Illness Date Seen by Provider: May 29, 2019 Time Seen by Provider: 09:37 Initial Comments Pt complains of one day of R sided abdominal pain beginning yesterday around 1800. Describes the pain as sharp, constant, and radiates down to her groin and around to her back. Pain is made worse with palpation, bending over or picking things up. She took 3 hydrocodones without relief. Past medical history is notable for chronic pancreatitis, L kidney cancer and removal, appendectomy, hysterectomy, cholecystectomy, flank hernia repair and L abdominal hernia repair. Timing/Duration: 12-24 Hours Severity/Quality: Moderate Location: RUQ Radiation: Flank (R), Groin (R) Activities at Onset: None Modifying Factors: Worsens With Exercise; Improves With Lying down; Worsens With Movement, Worsens With Palpation; Improves With Resting Associated Symptoms: Back Pain; No Chest Pain, No Diaphoresis, No Fever/Chills; Fatigue, Headache; No Heartburn; Nausea/Vomiting; No Rash, No Shortness of Air (JOHN GREEN,MED STUDENT) Allergies and Home Medications Allergies Coded Allergies: fentanyl (Verified Allergy, Unknown, 10/16/18) meperidine (Verified Allergy, Unknown, 10/16/18) penicillin G (Verified Allergy, Unknown, 10/16/18) vancomycin (Unverified Adverse Reaction, Intermediate, severe itching, 10/16/18) Home Medications Benzonatate 100 Mg Capsule, 1-2 TAB PO TID Prescribed by: YAN CHAPARRO on 01/31/19516 Cefprozil 500 Mg Tablet, 500 MG PO BID Prescribed by: YAN CHAPARRO on 01/31/19516 Cyanocobalamin 1,000 Mcg/Ml Inj, 1,000 MCG IJ MONTHLY, (Reported) Estradiol 1 Mg Tablet, 1 MG PO HS, (Reported) Furosemide 20 Mg Tablet, 20 MG PO DAILY Prescribed by: GEORGES FINN on 03/31/19 1127 Guaifenesin/Dextromethorphan 1 Each Tbmp.12hr, 1 EACH PO BID Prescribed by: YAN CHAPARRO on 01/31/19 0517 Hydrocodone/Acetaminophen 1 Each Tablet, 1 EA PO Q6HR PRN for PAIN-MODERATE Prescribed by: LINDSEY MARROQUIN on 10/23/18 1307 Methylprednisolone 4 Mg Tab.ds.pk, 4 MG PO UD Prescribed by: YAN CHAPARRO on 01/31/19 0517 Metoprolol Succinate 25 Mg Tab.er.24h, 25 MG PO HS, (Reported) Nitrofurantoin Monohyd/M-Cryst 100 Mg Capsule, 1 TAB PO BID Prescribed by: DEMETRIO KAY on 01/26/19 2140 Omeprazole 40 Mg Capsule.dr, 40 MG PO DAILY, (Reported) Ondansetron 8 Mg Tab.rapdis, 8 MG PO BID PRN for NAUSEA/VOMITING-1ST LINE, (Reported) Promethazine HCl 25 Mg Tablet, 25 MG PO Q6H PRN for NAUSEA/VOMITING Prescribed by: DEMETRIO KAY on 11/15/18 1639 Promethazine HCl 25 Mg Tablet, 25 MG PO Q6H PRN for NAUSEA/VOMITING Prescribed by: MAKAYLA HAWKINS on 03/22/19 0852 Promethazine HCl 25 Mg Tablet, 25 MG PO Q6H PRN for NAUSEA/VOMITING Prescribed by: GEOVANI HERNANDEZ on 05/12/19 1452 Ropinirole HCl 4 Mg Tablet, 4 MG PO HS, (Reported) Sertraline HCl 50 Mg Tablet, 50 MG PO HS, (Reported) Tizanidine HCl 4 Mg Tablet, 4 MG PO TID PRN for MUSCLE SPASMS, (Reported) Patient Home Medication List Home Medication List Reviewed: Yes (JOHN GREEN,MED STUDENT) Home Medication List Reviewed: Yes (YUKI MARCH MD) Review of Systems Review of Systems Constitutional: No chills, No diaphoresis, No fever; malaise EENTM: No Eye Pain, No Ear Pain, No Mouth Pain, No Nose Pain, No Throat Pain Respiratory: Denies Cough, Denies Shortness of Air Cardiovascular: Denies Chest Pain, Denies Edema, Denies Irregular Heart Rate Gastrointestinal: See HPI, Abdominal Pain; Denies Blood Streaked Stools, Denies Constipated; Diarrhea; Denies Difficulty Swallowing; Nausea; Denies Vomiting Genitourinary: Denies Burning, Denies Discharge; Frequency, Flank Pain; Denies Hematuria, Denies Incontinence, Denies Pain Musculoskeletal: back pain; No joint pain Skin: No lesions, No lumps, No rash Psychiatric/Neurological: Anxiety, Depressed, Headache Endocrine: Denies Intolerance to Cold, Denies Intolerance to Heat (JOHN GREEN MED STUDENT) All Other Systems Reviewed Negative Unless Noted: Yes (YUKI MARCH MD) Past Rhjmdco-Pppcbl-Njjeug Hx Past Med/Social Hx: Reviewed Nursing Past Med/Soc Hx (YUKI MARCH MD) Patient Social History Alcohol Use: Denies Use Recreational Drug Use: No Smoking Status: Former Smoker Type Used: Cigarettes 2nd Hand Smoke Exposure: No Recent Foreign Travel: No Contact w/Someone Who Travel: No Recent Infectious Disease Expo: No Recent Hopitalizations: No (JOHN GREEN MED STUDENT) Immunizations Up To Date Tetanus Booster (TDap): Less than 5yrs PED Vaccines UTD: No Date of Pneumonia Vaccine: May 17, 2012 Date of Influenza Vaccine: Jul 03, 2012 (JOHN GREEN MED STUDENT) Seasonal Allergies Seasonal Allergies: Yes (MILD) (JOHN GREEN MED STUDENT) Past Medical History Surgeries: Yes Abdominal, Adenoidectomy, Appendectomy, Gallbladder, 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, Nephrectomy, Orthopedic, Tonsillectomy Respiratory: Yes Asthma Currently Using CPAP: No Currently Using BIPAP: No Cardiac: Yes Hypertension Neurological: Yes (RESTLESS LEG SYNDROME) Headaches /Migraines 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: Yes (HX ENDOMETRIOSIS ) 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: 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 History: 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 Sexually Transmitted Disease: No HIV/AIDS: No Genitourinary: Yes (L KIDNEY REMOVED FOR TUMOR-MALIGNANT;) UTI-Chronic Gastrointestinal: Yes Abdominal Hernia, Liver Disease/Jaundice, Pancreatitis, Polyps Musculoskeletal: Yes (COCCYX-REMOVED; MULTIPLE KNEE SURGERIES, ) Chronic Back Pain Endocrine: Yes (CHRONIC PANCREATITIS; OBESITY) HEENT: No Loss of Vision: Denies Hearing Impairment: Denies Cancer: Yes Kidney Did You Recieve Any Treatments: Yes What Type of Treatment Did You: Surgical Intervention Psychosocial: Yes Anxiety, Depression Integumentary: Yes Herpes Blood Disorders: No Adverse Reaction/Blood Tranf: No (N/A) (JOHN GREEN MED STUDENT) Family Medical History Reviewed Nursing Family Hx (YUKI MARCH MD) Cardiovascular disease 19 FATHER Completed stroke 19 FATHER Diabetes mellitus 19 FATHER Hypercholesterolemia 19 FATHER 19 MOTHER Hypertension 19 FATHER 19 MOTHER Neoplasm 19 MOTHER Psychosocial problem 19 FATHER 19 MOTHER No Pertinent Family Hx, Cancer, Diabetes, Hypertension (JOHN GREEN,MED STUDENT) Physical Exam Vital Signs Vital Signs - First Documented 05/29/19 09:05 Temp 36.4 Pulse 64 Resp 18 B/P (MAP) 120/95 (103) Pulse Ox 97 (YUKI MARCH MD) Vital Signs Capillary Refill : Less Than 3 Seconds (JOHN GREEN,MED STUDENT) Height/Weight/BMI Height: 5'3.00" Weight: 246lbs. 0oz. [id number]; 45.00 BMI Method:Stated General Appearance: WD/WN, no apparent distress, obese HEENT: PERRL/EOMI, normal ENT inspection, TMs normal, pharynx normal Neck: non-tender, supple Respiratory: chest non-tender, lungs clear, normal breath sounds, no respiratory distress, no accessory muscle use Cardiovascular: normal peripheral pulses, regular rate, rhythm, no edema, no gallop, no murmur Peripheral Pulses: 2+ Radial Pulses (R), 2+ Radial Pulses (L) Gastrointestinal: soft; No guarding, No rebound; tenderness (RUQ, RLQ ); No hernia Extremities: no pedal edema, no calf tenderness Back: normal inspection, no vertebral tenderness, CVA tenderness (R) Neurologic/Psychiatric: alert, normal mood/affect, oriented x 3 Skin: normal color, warm/dry (JOHN GREEN,MED STUDENT) General Appearance: WD/WN, no apparent distress Cardiovascular: regular rate, rhythm, no murmur Gastrointestinal: soft, tenderness (RUQ, RLQ ) Neurologic/Psychiatric: alert, oriented x 3 (YUKI MARCH MD) Progress/Results/Core Measures Results/Orders Lab Results Laboratory Tests Test 05/29/19 09:50 05/29/19 10:45 Range/Units Urine Color YELLOW Urine Clarity CLEAR Urine pH 5.5 5-9 Urine Specific Greig >=1.030 1.016-1.022 Urine Protein NEGATIVE NEGATIVE Urine Glucose (UA) NEGATIVE NEGATIVE Urine Ketones NEGATIVE NEGATIVE Urine Nitrite NEGATIVE NEGATIVE Urine Bilirubin NEGATIVE NEGATIVE Urine Urobilinogen 0.2 < = 1.0 MG/DL Urine Leukocyte Esterase NEGATIVE NEGATIVE Urine RBC (Auto) NEGATIVE NEGATIVE Urine RBC NONE /HPF Urine WBC 0-2 /HPF Urine Squamous Epithelial Cells 5-10 /HPF Urine Crystals NONE /LPF Urine Bacteria FEW H /HPF Urine Casts NONE /LPF Urine Mucus NEGATIVE /LPF Urine Culture Indicated NO White Blood Count 7.8 4.3-11.0 10^3/uL Red Blood Count 4.79 4.35-5.85 10^6/uL Hemoglobin 12.6 11.5-16.0 G/DL Hematocrit 38 35-52 % Mean Corpuscular Volume 80 80-99 FL Mean Corpuscular Hemoglobin 26 25-34 PG Mean Corpuscular Hemoglobin Concent 33 32-36 G/DL Red Cell Distribution Width 14.5 10.0-14.5 % Platelet Count 247 130-400 10^3/uL Mean Platelet Volume 9.1 7.4-10.4 FL Neutrophils (%) (Auto) 67 42-75 % Lymphocytes (%) (Auto) 26 12-44 % Monocytes (%) (Auto) 5 0-12 % Eosinophils (%) (Auto) 2 0-10 % Basophils (%) (Auto) 0 0-10 % Neutrophils # (Auto) 5.3 1.8-7.8 X 10^3 Lymphocytes # (Auto) 2.0 1.0-4.0 X 10^3 Monocytes # (Auto) 0.4 0.0-1.0 X 10^3 Eosinophils # (Auto) 0.2 0.0-0.3 10^3/uL Basophils # (Auto) 0.0 0.0-0.1 10^3/uL Sodium Level 139 135-145 MMOL/L Potassium Level 4.3 3.6-5.0 MMOL/L Chloride Level 106 98-107 MMOL/L Carbon Dioxide Level 23 21-32 MMOL/L Anion Gap 10 5-14 MMOL/L Blood Urea Nitrogen 17 7-18 MG/DL Creatinine 0.82 0.60-1.30 MG/DL Estimat Glomerular Filtration Rate > 60 BUN/Creatinine Ratio 21 Glucose Level 97 70-105 MG/DL Calcium Level 9.0 8.5-10.1 MG/DL Corrected Calcium 9.0 8.5-10.1 MG/DL Total Bilirubin 0.3 0.1-1.0 MG/DL Aspartate Amino Transf (AST/SGOT) 46 H 5-34 U/L Alanine Aminotransferase (ALT/SGPT) 20 0-55 U/L Alkaline Phosphatase 67 40-136 U/L Total Protein 7.4 6.4-8.2 GM/DL Albumin 4.0 3.2-4.5 GM/DL Lipase 82 H 8-78 U/L (YUKI MARCH MD) My Orders Orders - YUKI MARCH MD Cbc With Automated Diff (05/29/19 09:57) Comprehensive Metabolic Panel (05/29/19 09:57) Ua Culture If Indicated (05/29/19 09:57) Ed Iv/Invasive Line Start (05/29/19 09:57) Ns Iv 1000 Ml (Sodium Chloride 0.9%) (05/29/19 09:57) Ondansetron Injection (Zofran Injectio (05/29/19 10:00) Lipase (05/29/19 09:57) Acute Abd Series (05/29/19 10:18) Ketamine Injection (Ketalar Injection) (05/29/19 11:15) Ondansetron Injection (Zofran Injectio (05/29/19 12:15) (YUKI MARCH MD) Medications Given in ED Current Medications Medications Dose Ordered Sig/Neal Route Start Time Stop Time Status Last Admin Dose Admin Ketamine HCl 25 mg ONCE ONCE IV 05/29/19 11:15 05/29/19 11:16 DC 05/29/19 11:41 25 MG Ondansetron HCl 4 mg ONCE ONCE IVP 05/29/19 10:00 05/29/19 10:01 DC 05/29/19 11:07 4 MG Ondansetron HCl 4 mg ONCE ONCE IVP 05/29/19 12:15 05/29/19 12:16 DC 05/29/19 12:38 4 MG Sodium Chloride 1,000 ml @ 0 mls/hr Q0M ONCE IV 05/29/19 09:57 05/29/19 10:00 DC 05/29/19 11:07 1,000 MLS/HR (YUKI MARCH MD) Vital Signs/I&O 05/29/19 09:05 Temp 36.4 Pulse 64 Resp 18 B/P (MAP) 120/95 (103) Pulse Ox 97 (YUKI MARCH MD) Blood Pressure Mean: 103 POS Progress Progress Note : Time: 10:12 Progress Note Seen and evaluated. Ordering CBC, CMP with lipase, UA and acute abdominal series. Started on 1L NS and zophran. Pt refused pain medication but agreed to ketamine. Will r/o exacerbation of chronic pancreatitis. Pt has had multitude of abdominal surgeries so possible she could have obstruction d/t adhesions. (JOHN GREEN,MED STUDENT) Progress Note : Progress Note I have seen and evaluated the patient and agree with above except as indicated. I have directed the plan of care. Patient is here with right-sided abdominal pain is worse and chest are today. She did take a couple of Tylenol yesterday and that did not help. She took a few hydrocodone early this morning and that has not helped. She does have history of renal cell carcinoma and nephrectomy on the left. She's also had history of cholecystectomy and appendectomy on the right. Multiple abdominal surgeries. She's had multiple CT scans previously so we will try to limit radiation. Plan is to admit establish IV, check labs and urine and we will give 25 mg of ketamine IV as well as Zofran 4 mg IV and normal saline 1 L bolus. We will get acute abdominal series to rule out obstruction. Monitor patient. 1257: Overall patient feeling much better. We did discuss outpatient treatment for constipation and she will initiate MiraLAX. Discharged home with return precautions. Patient verbalize understanding instructions and agreement with plan. (YUKI MARCH MD) Diagnostic Imaging Diagonstic Imaging: Xray Plain Films/CT/US/NM/MRI: chest, abdomen Comments [facility]. POS [place], [place] POS NAME: JAYLYN DELGADO [facility] REC#: [id number] PT STATUS: REG ER : 1985 PHYSICIAN: YUKI MARCH MD ADMIT DATE: 05/29/19/ER Draft POSDate of Exam:05/29/19 ACUTE ABD SERIES INDICATION: Pain. COMPARISON: 03/22/2019 TECHNIQUE: 4 radiographs of the abdomen and chest dated 05/29/2019 FINDINGS: The cardiac silhouette is within normal limits in size. No significant pulmonary vascular congestion. The lungs are clear. No pleural effusion. No pneumothorax. No acute osseous abnormality within the chest. Chain sutures present overlying the left abdomen. Surgical clips are present overlying the right abdomen. Gas and stool is present within the colon, including extending into the lower pelvis. No dilated loops of small bowel. No differential air-fluid levels. No free air. No suspicious calcifications overlying the right renal shadow. No acute osseous abnormality. IMPRESSION: Postsurgical changes without acute abnormality. Dictated on workstation # [id number] Dict: 05/29/19 1139 Trans: 05/29/19 1234 [id number] Interpreted by: CARINA HERNADEZ MD Electronically signed by: (YUKI MARCH MD) Departure Impression Primary Impression: Right sided abdominal pain Disposition: HOME, SELF-CARE Condition: Improved Departure-Patient Inst. Decision time for Depature: 12:58 (YUKI MARCH MD) Referrals: CARMEN GIBBS MD (PCP/Family) Primary Care Physician Patient Instructions: Acute Abdomen (Belly Pain), Adult (DC), Constipation, Adult (DC) Add. Discharge Instructions: All discharge instructions reviewed with patient and/or family. Voiced un derstanding. You may take MiraLAX or the generic one half capful twice daily for as needed to keep stools soft. You may increase or decrease the dose to keep stools in normal range. Return for worse pain, fever, vomiting, weakness, breathing problems or o ther concerns as needed. JOHN GREEN,MED STUDENT May 29, 2019 10:05 YUKI MOROCHO MD May 29, 2019 11:09 POS
[2019-05-29 10:07] LABS: BILIRUBIN,URINE NEGATIVE (NEGATIVE); CLARITY,URINE CLEAR; COLOR,URINE YELLOW; GLUCOSE, URINE (UA) NEGATIVE (NEGATIVE); KETONES,URINE NEGATIVE (NEGATIVE); LEUKOCYTE ESTERASE ,URINE NEGATIVE (NEGATIVE); NITRITE,URINE NEGATIVE (NEGATIVE); PH,URINE 5.5 (5-9); PROTEIN,URINE NEGATIVE (NEGATIVE)
[2019-05-29 10:18] LABS: BACTERIA,URINE FEW /HPF; WBC,URINE 0-2 /HPF
[2019-05-29] MEDS ORDERED: KETAMINE 50 MG/ML 10 ML VIAL IV ONE (10:30)
[2019-05-29 10:53] LABS: BASOPHILS % (AUTO) 0 % (0-10); EOSINOPHILS # (AUTO) 0.2 10^3/uL (0.0-0.3); EOSINOPHILS % (AUTO) 2 % (0-10); HEMATOCRIT 38 % (35-52); HEMOGLOBIN 12.6 G/DL (11.5-16.0); LYMPHOCYTES % (AUTO) 26 % (12-44); MEAN CORPUSCULAR HEMOGLOBIN 26 PG (25-34); MEAN CORPUSCULAR HGB CONC 33 G/DL (32-36); MEAN CORPUSCULAR VOLUME 80 FL (80-99); MEAN PLATELET VOLUME 9.1 FL (7.4-10.4); MONOCYTES # (AUTO) 0.4 X 10^3 (0.0-1.0); MONOCYTES % (AUTO) 5 % (0-12); NEUTROPHILS # (AUTO) 5.3 X 10^3 (1.8-7.8); NEUTROPHILS % (AUTO) 67 % (42-75); PLATELET COUNT 247 10^3/uL (130-400); RED CELL DISTRIBUTION WIDTH 14.5 % (10.0-14.5); WHITE BLOOD COUNT 7.8 10^3/uL (4.3-11.0)
[2019-05-29 11:09] LABS: ALANINE AMINOTRANSFERASE 20 U/L (0-55); ALKALINE PHOSPHATASE 67 U/L (40-136); BILIRUBIN,TOTAL 0.3 MG/DL (0.1-1.0); BUN/CREATININE RATIO 21; CARBON DIOXIDE 23 MMOL/L (21-32); CHLORIDE 106 MMOL/L (98-107); CREATININE SERUM 0.82 MG/DL (0.60-1.30); GFR ESTIMATED > 60; GLUCOSE 97 MG/DL (70-105); LIPASE 82 U/L (8-78); POTASSIUM 4.3 MMOL/L (3.6-5.0); SODIUM 139 MMOL/L (135-145); TOTAL PROTEIN 7.4 GM/DL (6.4-8.2)
[2019-05-29] MEDS ORDERED: KETAMINE HCL 100 MG/ML 5 ML VIAL IV ONE (11:15)
--- NOTE | 2019-05-29 12:34 | Diagnostic Imaging Report ---
INDICATION: Pain. COMPARISON: 03/22/2019 TECHNIQUE: 4 radiographs of the abdomen and chest dated 05/29/2019 FINDINGS: The cardiac silhouette is within normal limits in size. No significant pulmonary vascular congestion. The lungs are clear. No pleural effusion. No pneumothorax. No acute osseous abnormality within the chest. Chain sutures present overlying the left abdomen. Surgical clips are present overlying the right abdomen. Gas and stool is present within the colon, including extending into the lower pelvis. No dilated loops of small bowel. No differential air-fluid levels. No free air. No suspicious calcifications overlying the right renal shadow. No acute osseous abnormality. IMPRESSION: Postsurgical changes without acute abnormality. Dictated by: Dictated on workstation # [id number]
[2019-05-29 13:14] VITALS: BP 116/82
== END 2019-05-29 13:14 | disposition home or self-care (01) ==
LOC: EDUNIT# 08:40 → ER 08:41
DX: R10.11 Right upper quadrant pain (principal); R10.31 Right lower quadrant pain; I10 Essential (primary) hypertension; J45.909 Unspecified asthma, uncomplicated; F41.9 Anxiety disorder, unspecified; F32.9 Major depressive disorder, single episode, unspecified; G43.909 Migraine, unspecified, not intractable, without status migrainosus; Z87.440 Personal history of urinary (tract) infections; Z85.528 Personal history of other malignant neoplasm of kidney; Z90.49 Acquired absence of other specified parts of digestive tract; Z90.5 Acquired absence of kidney; Z87.19 Personal history of other diseases of the digestive system; Z88.5 Allergy status to narcotic agent; Z88.1 Allergy status to other antibiotic agents; Z88.0 Allergy status to penicillin; Z79.52 Long term (current) use of systemic steroids; Z87.891 Personal history of nicotine dependence; Z90.89 Acquired absence of other organs; Z90.710 Acquired absence of both cervix and uterus; Z82.49 Family history of ischemic heart disease and other diseases of the circulatory system
CPT/HCPCS: 36415; 74022; 80053; 81000; 83690; 85025

== ENCOUNTER 2019-06-14 20:18 | Emergency (ER) | payer MEDICARE, MEDICAID ==
[~2019-06-14] VITALS: Ht 160 cm; Wt 118.0 kg
--- NOTE | 2019-06-14 22:04 | ED Fall/Injury ---
General Chief Complaint: Trauma-Non Activation Stated Complaint: FALL/ PAIN ON LT SIDE, RT ANKLE PAIN Nursing Triage Note: Patient states she fell approximately 2 hours prior to arrival. She states she has been feeling nauseated today and was walking to her bathroom when she stepped wrong on her ankle and fell. She c/o of right ankle pain as well as left sided pain. She denies hitting her head and denies loss of consciousness. Source: patient Exam Limitations: no limitations History of Present Illness Date Seen by Provider: Jun 14, 2019 Time Seen by Provider: 22:04 Initial Comments 34-year-old female patient presents with complaints of right ankle and left rib pain after falling at home. Patient states she was nauseated and running to the ER to get to the bathroom. States she stepped in a hole twisting the right ankle. Reports falling onto the left side. Denies hitting her head, loss of consciousness, neck pain, or back pain. Patient reports the nausea and vomiting is chronic with the chronic pancreatitis. Patient is scheduled to see Dr. Nunez for follow-up in approximately 2 weeks. Location Injury Occurred: patients home Occurred: other (2 hours prior to arrival) Injuries/Pain Location: chest (left ribs), lower extremity (right ankle) Loss of Consciousness: no loss of consciousness Modifying Factors: Improves With Immobilization; Worse With Movement Allergies and Home Medications Allergies Coded Allergies: fentanyl (Verified Allergy, Unknown, 10/16/18) meperidine (Verified Allergy, Unknown, 10/16/18) penicillin G (Verified Allergy, Unknown, 10/16/18) vancomycin (Unverified Adverse Reaction, Intermediate, severe itching, 10/16/18) Home Medications Benzonatate 100 Mg Capsule, 1-2 TAB PO TID Prescribed by: YAN CHAPARRO on 01/31/19516 Cefprozil 500 Mg Tablet, 500 MG PO BID Prescribed by: YAN CHAPARRO on 01/31/19516 Cyanocobalamin 1,000 Mcg/Ml Inj, 1,000 MCG IJ MONTHLY, (Reported) Estradiol 1 Mg Tablet, 1 MG PO HS, (Reported) Furosemide 20 Mg Tablet, 20 MG PO DAILY Prescribed by: GEORGES FINN on 03/31/19 1127 Guaifenesin/Dextromethorphan 1 Each Tbmp.12hr, 1 EACH PO BID Prescribed by: YAN CHAPARRO on 01/31/19 05 Hydrocodone/Acetaminophen 1 Each Tablet, 1 EA PO Q6HR PRN for PAIN-MODERATE Prescribed by: LINDSEY MARROQUIN on 10/23/18 1307 Methylprednisolone 4 Mg Tab.ds.pk, 4 MG PO UD Prescribed by: YAN CHAPARRO on 01/31/19 05 Metoprolol Succinate 25 Mg Tab.er.24h, 25 MG PO HS, (Reported) Nitrofurantoin Monohyd/M-Cryst 100 Mg Capsule, 1 TAB PO BID Prescribed by: DEMETRIO KAY on 01/26/19 2140 Omeprazole 40 Mg Capsule.dr, 40 MG PO DAILY, (Reported) Ondansetron 8 Mg Tab.rapdis, 8 MG PO BID PRN for NAUSEA/VOMITING-1ST LINE, ( Reported) Promethazine HCl 25 Mg Tablet, 25 MG PO Q6H PRN for NAUSEA/VOMITING Prescribed by: DEMETRIO KAY on 11/15/18 1639 Promethazine HCl 25 Mg Tablet, 25 MG PO Q6H PRN for NAUSEA/VOMITING Prescribed by: MAKAYLA HAWKINS on 03/22/19 0852 Promethazine HCl 25 Mg Tablet, 25 MG PO Q6H PRN for NAUSEA/VOMITING Prescribed by: GEOVANI HERNANDEZ on 05/12/19 1452 Ropinirole HCl 4 Mg Tablet, 4 MG PO HS, (Reported) Sertraline HCl 50 Mg Tablet, 50 MG PO HS, (Reported) Tizanidine HCl 4 Mg Tablet, 4 MG PO TID PRN for MUSCLE SPASMS, (Reported) Patient Home Medication List Home Medication List Reviewed: Yes Review of Systems Review of Systems Constitutional: no symptoms reported Eyes: No Symptoms Reported Ears, Nose, Mouth, Throat: no symptoms reported Respiratory: see HPI; No cough, No dyspnea on exertion, No hemoptysis, No short of breath, No stridor, No wheezing; other (left rib pain) Cardiovascular: no symptoms reported Gastrointestinal: see HPI, abdominal pain (chronic left-sided abdominal pain); No constipation, No diarrhea; nausea; No vomiting Genitourinary: no symptoms reported Musculoskeletal: see HPI; No back pain; joint pain (right ankle pain); No joint swelling, No neck pain Skin: no symptoms reported Psychiatric/Neurological: Denies Headache, Denies Numbness, Denies Paresthesia, Denies Seizure, Denies Tingling, Denies Weakness All Other Systems Reviewed Negative Unless Noted: Yes (Negative excepted noted.) Past Aclzpwx-Bglpaa-Ndflkb Hx Past Med/Social Hx: Reviewed Nursing Past Med/Soc Hx Patient Social History Alcohol Use: Denies Use Recreational Drug Use: No Type Used: Cigarettes 2nd Hand Smoke Exposure: No Recent Foreign Travel: No Contact w/Someone Who Travel: No Recent Infectious Disease Expo: No Recent Hopitalizations: No Immunizations Up To Date Tetanus Booster (TDap): Less than 5yrs PED Vaccines UTD: No Date of Pneumonia Vaccine: May 17, 2012 Date of Influenza Vaccine: Jul 03, 2012 Seasonal Allergies Seasonal Allergies: Yes (MILD) Past Medical History Surgeries: Yes Abdominal, Adenoidectomy, Appendectomy, Gallbladder, 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, Nephrectomy, Orthopedic, Tonsillectomy Respiratory: Yes Asthma Currently Using CPAP: No Currently Using BIPAP: No Cardiac: Yes Hypertension Neurological: Yes (RESTLESS LEG SYNDROME) Headaches /Migraines 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: Yes (HX ENDOMETRIOSIS ) 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: 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 KILN HAND History: 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 Sexually Transmitted Disease: No HIV/AIDS: No Genitourinary: Yes (L KIDNEY REMOVED FOR TUMOR-MALIGNANT;) UTI-Chronic Gastrointestinal: Yes (chronic abdominal pain and nausea/vomiting) Abdominal Hernia, Liver Disease/Jaundice, Pancreatitis, Polyps Musculoskeletal: Yes (COCCYX-REMOVED; MULTIPLE KNEE SURGERIES, ) Chronic Back Pain Endocrine: Yes (CHRONIC PANCREATITIS; OBESITY) HEENT: No Loss of Vision: Denies Hearing Impairment: Denies Cancer: Yes Kidney Did You Recieve Any Treatments: Yes What Type of Treatment Did You: Surgical Intervention Psychosocial: Yes Anxiety, Depression Integumentary: Yes Herpes Blood Disorders: No Adverse Reaction/Blood Tranf: No (N/A) Family Medical History Reviewed Nursing Family Hx Cardiovascular disease 19 FATHER Completed stroke 19 FATHER Diabetes mellitus 19 FATHER Hypercholesterolemia 19 FATHER 19 MOTHER Hypertension 19 FATHER 19 MOTHER Neoplasm 19 MOTHER Psychosocial problem 19 FATHER 19 MOTHER No Pertinent Family Hx, Cancer, Diabetes, Hypertension Physical Exam Vital Signs Vital Signs - First Documented Capillary Refill : Less Than 3 Seconds Height, Weight, BMI Height: 5'3.00" Weight: 246lbs. 0oz. 111.836226rn; 46.00 BMI Method:Stated General Appearance: WD/WN, no apparent distress HEENT: PERRL/EOMI, pharynx normal, other (normocephalic, atraumatic.) Neck: non-tender, supple, normal inspection Cardiovascular: normal peripheral pulses, regular rate, rhythm, no edema, no gallop, no murmur Respiratory: lungs clear, normal breath sounds, no respiratory distress, no accessory muscle use, other (left anterior and lateral lower ribs tender to palpation without ecchymosis, swelling, or deformity.) Gastrointestinal: normal bowel sounds, non tender, soft, no organomegaly, no pulsatile mass; No distended Back: normal inspection, no vertebral tenderness Extremities: normal range of motion, normal inspection, no pedal edema, normal capillary refill, other (right ankle tender to palpation without evidence of swelling, deformity, or ecchymosis. Right foot, right knee, right femur, and right hip nontender.) Neurologic/Psychiatric: no motor/sensory deficits, alert, normal mood/affect, oriented x 3 Skin: normal color, warm/dry; No ecchymosis Geremias Coma Score Best Eye Response: (4) Open Spontaneously Best Verbal Response: (5) Oriented Best Motor Response: (6) Obeys Commands Geremias Total: 15 Progress/Results/Core Measures Results/Orders Lab Results Laboratory Tests Test 06/14/19 23:11 Range/Units Urine Color YELLOW Urine Clarity CLEAR Urine pH 7.0 5-9 Urine Specific [place] 1.020 1.016-1.022 Urine Protein NEGATIVE NEGATIVE Urine Glucose (UA) NEGATIVE NEGATIVE Urine Ketones NEGATIVE NEGATIVE Urine Nitrite NEGATIVE NEGATIVE Urine Bilirubin NEGATIVE NEGATIVE Urine Urobilinogen 0.2 < = 1.0 MG/DL Urine Leukocyte Esterase NEGATIVE NEGATIVE Urine RBC (Auto) NEGATIVE NEGATIVE Urine RBC NONE /HPF Urine WBC 0-2 /HPF Urine Squamous Epithelial Cells 10-25 H /HPF Urine Crystals NONE /LPF Urine Bacteria FEW H /HPF Urine Casts NONE /LPF Urine Mucus NEGATIVE /LPF Urine Culture Indicated YES My Orders Orders - KIARA CALVERT Ribs/Unilateral With Chest (06/14/19 22:10) Ankle, Right, 3 Views (06/14/19 22:10) Ondansetron Oral Dissolve Tab (Zofran (06/14/19 22:10) Acetaminophen Tablet (Tylenol Tablet) (06/14/19 22:10) Ua Culture If Indicated (06/14/19 22:10) Urine Culture (06/14/19 23:11) Vital Signs/I&O 06/14/19 06/14/19 06/14/19 21:04 21:04 23:47 Temp 36.8 36.8 36.8 Pulse 90 99 90 Resp 14 14 14 B/P (MAP) 124/74 (91) 124/74 (91) 124/74 (91) Pulse Ox 98 98 98 O2 Delivery Room Air Room Air Blood Pressure Mean: 91 Diagnostic Imaging Diagonstic Imaging: Xray Plain Films/CT/US/NM/MRI: chest (with left rib) Comments No acute bony abnormality noted. Reviewed: Reviewed by Me (discussed with Dr. Dr. Ruby) Diagonstic Imaging: Xray Plain Films/CT/US/NM/MRI: ankle Comments No acute bony abnormality noted Reviewed: Reviewed by Me (discussed with Dr. Ruby) Departure Communication (Admissions) Patient seen and evaluated. Urinalysis, x-ray chest with left ribs, and x-ray of the right ankle obtained. Patient was given 8 mg of Zofran with improvement in nausea/vomiting. Diagnostic findings and urinalysis findings discussed with the patient. Plan for discharge to home. Patient to follow-up with Dr. Oconnell no June 29 scheduled. She will return to the emergency department for worsened symptoms or any other concerns. Impression Primary Impression: Sprain of right ankle Qualified Codes: S93.401A - Sprain of unspecified ligament of right ankle, initial encounter Additional Impressions: Contusion of rib on left side Qualified Codes: S20.212A - Contusion of left front wall of thorax, initial encounter Nausea & vomiting Qualified Codes: R11.2 - Nausea with vomiting, unspecified Disposition: HOME, SELF-CARE Condition: Improved Departure-Patient Inst. Decision time for Depature: 23:40 Referrals: CARMEN GIBBS MD (PCP/Family) Primary Care Physician Patient Instructions: Ankle Sprain, Contusion (DC) Add. Discharge Instructions: All discharge instructions reviewed with patient and/or family. Voiced understanding. Tylenol extra strength [id number] as directed for pain. Continue usual home medications. Elevate the right ankle. Ice pack for 20 minute intervals to the left with right ankle. Activity as tolerated. Follow- up with your primary care provider this week for recheck, call first thing munir rr morning for appointment. Return to the emergency department for worsened symptoms or any other concerns. KIARA CALVERT Jun 14, 2019 22:04
[2019-06-14] MEDS ORDERED: ONDANSETRON 4 MG (ZOFRAN) ORAL DISSOLVE TAB SL STA (22:10)
[2019-06-14] MEDS ORDERED: ACETAMINOPHEN 500 MG TAB (TYLENOL) PO STA (22:10)
[2019-06-14 23:20] LABS: BILIRUBIN,URINE NEGATIVE (NEGATIVE); CLARITY,URINE CLEAR; COLOR,URINE YELLOW; GLUCOSE, URINE (UA) NEGATIVE (NEGATIVE); KETONES,URINE NEGATIVE (NEGATIVE); LEUKOCYTE ESTERASE ,URINE NEGATIVE (NEGATIVE); NITRITE,URINE NEGATIVE (NEGATIVE); PROTEIN,URINE NEGATIVE (NEGATIVE)
[2019-06-14 23:27] LABS: BACTERIA,URINE FEW /HPF; WBC,URINE 0-2 /HPF
[2019-06-14 23:47] VITALS: BP 124/74
--- NOTE | 2019-06-15 07:22 | Diagnostic Imaging Report ---
INDICATION: Right ankle pain AP, oblique and lateral views of the right ankle are obtained. FINDINGS: Mild degenerative findings are seen at the level of the heel and midfoot. No acute fracture or dislocation is identified. No abnormal lytic or sclerotic focus is seen, and there is no radiopaque foreign body. IMPRESSION: No acute abnormality. Dictated by: Dictated on workstation # [id number]
--- NOTE | 2019-06-15 07:56 | Diagnostic Imaging Report ---
INDICATION: Fall with left chest pain PA view of the chest is obtained with multiple oblique views of left ribs. Heart size and pulmonary vascularity are within normal limits. Lungs are clear and well expanded. There is no evidence of rib fracture. No pleural reaction is seen. IMPRESSION: No acute abnormality detected. Dictated by: Dictated on workstation # [id number]
== END 2019-06-14 23:46 | disposition home or self-care (01) ==
LOC: EDUNIT# 20:18 → ER 20:19
DX: S93.401A Sprain of unspecified ligament of right ankle, initial encounter (principal); S20.212A Contusion of left front wall of thorax, initial encounter; R11.2 Nausea with vomiting, unspecified; J45.909 Unspecified asthma, uncomplicated; I10 Essential (primary) hypertension; G43.909 Migraine, unspecified, not intractable, without status migrainosus; E66.9 Obesity, unspecified; F41.9 Anxiety disorder, unspecified; F31.9 Bipolar disorder, unspecified; Z85.038 Personal history of other malignant neoplasm of large intestine; Z88.5 Allergy status to narcotic agent; Z87.440 Personal history of urinary (tract) infections; Z88.1 Allergy status to other antibiotic agents; Z88.0 Allergy status to penicillin; Z79.52 Long term (current) use of systemic steroids; Z90.89 Acquired absence of other organs; Z90.49 Acquired absence of other specified parts of digestive tract; Z90.5 Acquired absence of kidney; Z82.49 Family history of ischemic heart disease and other diseases of the circulatory system; Z90.710 Acquired absence of both cervix and uterus; W01.0XXA Fall on same level from slipping, tripping and stumbling without subsequent striking against object, initial encounter; Y92.009 Unspecified place in unspecified non-institutional (private) residence as the place of occurrence of the external cause
CPT/HCPCS: 71101; 73610; 81000; 87088

== ENCOUNTER 2019-07-04 22:54 | Emergency (ER) | payer MEDICARE, MEDICAID ==
[~2019-07-04] VITALS: Ht 152 cm; Wt 118.0 kg
[~2019-07-04 22:54] MED LIST changes: -DIAZ5TAB3 PO; +DIAZ5TAB49 PO; -FLUO20CA25 PO; +FLUO20CA45 PO; -METO-387 PO; +MTP25TSR PO; +OMEP40CA27 PO; -TRAM50TA2; +TRM50T
[2019-07-04 23:24] LABS: BILIRUBIN,URINE NEGATIVE (NEGATIVE); COLOR,URINE YELLOW; GLUCOSE, URINE (UA) NEGATIVE (NEGATIVE); KETONES,URINE NEGATIVE (NEGATIVE); LEUKOCYTE ESTERASE ,URINE NEGATIVE (NEGATIVE); NITRITE,URINE NEGATIVE (NEGATIVE); PH,URINE 6.5 (5-9); PROTEIN,URINE NEGATIVE (NEGATIVE)
[2019-07-04 23:29] LABS: CLARITY,URINE SL CLOUDY
[2019-07-04 23:30] LABS: BASOPHILS % (AUTO) 0 % (0-10); EOSINOPHILS # (AUTO) 0.2 10^3/uL (0.0-0.3); EOSINOPHILS % (AUTO) 2 % (0-10); HEMATOCRIT 39 % (35-52); HEMOGLOBIN 12.4 G/DL (11.5-16.0); LYMPHOCYTES # (AUTO) 3.1 X 10^3 (1.0-4.0); LYMPHOCYTES % (AUTO) 35 % (12-44); MEAN CORPUSCULAR HEMOGLOBIN 26 PG (25-34); MEAN CORPUSCULAR HGB CONC 32 G/DL (32-36); MEAN CORPUSCULAR VOLUME 81 FL (80-99); MEAN PLATELET VOLUME 9.5 FL (7.4-10.4); MONOCYTES # (AUTO) 0.6 X 10^3 (0.0-1.0); MONOCYTES % (AUTO) 6 % (0-12); NEUTROPHILS % (AUTO) 56 % (42-75); PLATELET COUNT 300 10^3/uL (130-400); RED CELL DISTRIBUTION WIDTH 14.6 % (10.0-14.5); WHITE BLOOD COUNT 8.9 10^3/uL (4.3-11.0)
[2019-07-04 23:30] LABS: BACTERIA,URINE MODERATE /HPF; WBC,URINE 0-2 /HPF
[2019-07-04] MEDS ORDERED: HYDROmorphone 2 MG/ML VIAL (DILAUDID) IV ONE (23:45)
[2019-07-04 23:56] LABS: ALANINE AMINOTRANSFERASE 30 U/L (0-55); ALBUMIN 4.5 GM/DL (3.2-4.5); ALKALINE PHOSPHATASE 64 U/L (40-136); BILIRUBIN,TOTAL 0.2 MG/DL (0.1-1.0); BUN/CREATININE RATIO 14; CALCIUM 9.3 MG/DL (8.5-10.1); CARBON DIOXIDE 21 MMOL/L (21-32); CHLORIDE 107 MMOL/L (98-107); CREATININE SERUM 0.99 MG/DL (0.60-1.30); GFR ESTIMATED > 60; GLUCOSE 83 MG/DL (70-105); SODIUM 141 MMOL/L (135-145); TOTAL PROTEIN 8.1 GM/DL (6.4-8.2)
--- NOTE | 2019-07-05 00:02 | ED Abdominal Pain ---
General Chief Complaint: Abdominal/GI Problems Stated Complaint: RLQ PAIN Nursing Triage Note: pt presents to the ed c/o R flank pain that onset yesterday. pt states it hurts to take a deep breath. pt states she had her L kidney removed d/t CA Sepsis Screen: Possible Severe Sepsis Risk Source of Information: Patient Exam Limitations: No Limitations History of Present Illness Date Seen by Provider: Jul 04, 2019 Time Seen by Provider: 23:32 Initial Comments Here with report of right flank pain that started a few days ago and worsened yesterday. Does have history of left renal carcinoma with left nephrectomy. Occasionally has right-sided abdominal pain. Does have history of pancreatitis. She did take 2 of her hydrocodone tablets and that has not helped the pain. Normal bowel movement yesterday. Denies dysuria. Denies fever or chills or other illness currently. Timing/Duration: 2-3 Days Severity/Quality: Moderate Location: RUQ Radiation: No Radiation Activities at Onset: None Modifying Factors: Worsens With Movement Associated Symptoms: No Chest Pain, No Fever/Chills, No Nausea/Vomiting, No Shortness of Air, No Swelling/Mass in Abdomen, No Weakness; Other (worse with deep breathing) Allergies and Home Medications Allergies Coded Allergies: fentanyl (Verified Allergy, Unknown, 10/16/18) meperidine (Verified Allergy, Unknown, 10/16/18) penicillin G (Verified Allergy, Unknown, 10/16/18) vancomycin (Unverified Adverse Reaction, Intermediate, severe itching, 10/16/18) Home Medications Benzonatate 100 Mg Capsule, 1-2 TAB PO TID Prescribed by: YAN CHAPARRO on 01/31/19516 Cefprozil 500 Mg Tablet, 500 MG PO BID Prescribed by: YAN CHAPARRO on 01/31/19516 Cyanocobalamin 1,000 Mcg/Ml Inj, 1,000 MCG IJ MONTHLY, (Reported) Estradiol 1 Mg Tablet, 1 MG PO HS, (Reported) Furosemide 20 Mg Tablet, 20 MG PO DAILY Prescribed by: GEORGES FINN on 03/31/19 112 Guaifenesin/Dextromethorphan 1 Each Tbmp.12hr, 1 EACH PO BID Prescribed by: YAN CHAPARRO on 01/31/19516 Hydrocodone/Acetaminophen 1 Each Tablet, 1 EA PO Q6HR PRN for PAIN-MODERATE Prescribed by: LINDSEY MARROQUIN on 10/23/18 1307 Methylprednisolone 4 Mg Tab.ds.pk, 4 MG PO UD Prescribed by: YAN CHAPARRO on 01/31/19 0517 Metoprolol Succinate 25 Mg Tab.er.24h, 25 MG PO HS, (Reported) Nitrofurantoin Monohyd/M-Cryst 100 Mg Capsule, 1 TAB PO BID Prescribed by: DEMETRIO KAY on 01/26/19 2140 Omeprazole 40 Mg Capsule.dr, 40 MG PO DAILY, (Reported) Ondansetron 8 Mg Tab.rapdis, 8 MG PO BID PRN for NAUSEA/VOMITING-1ST LINE, (Reported) Promethazine HCl 25 Mg Tablet, 25 MG PO Q6H PRN for NAUSEA/VOMITING Prescribed by: DEMETRIO KAY on 11/15/18 1639 Promethazine HCl 25 Mg Tablet, 25 MG PO Q6H PRN for NAUSEA/VOMITING Prescribed by: MAKAYLA HAWKINS on 03/22/19 0852 Promethazine HCl 25 Mg Tablet, 25 MG PO Q6H PRN for NAUSEA/VOMITING Prescribed by: GEOVANI HERNANDEZ on 05/12/19 1452 Ropinirole HCl 4 Mg Tablet, 4 MG PO HS, (Reported) Sertraline HCl 50 Mg Tablet, 50 MG PO HS, (Reported) Tizanidine HCl 4 Mg Tablet, 4 MG PO TID PRN for MUSCLE SPASMS, (Reported) Patient Home Medication List Home Medication List Reviewed: Yes Review of Systems Review of Systems Constitutional: no symptoms reported EENTM: No Symptoms Reported Respiratory: See HPI; Denies Cough, Denies Shortness of Air Cardiovascular: Denies Chest Pain, Denies Edema Gastrointestinal: Denies Abdomen Distended; Abdominal Pain; Denies Constipated, Denies Diarrhea, Denies Vomiting Genitourinary: No Symptoms Reported Musculoskeletal: No back pain; muscle pain Skin: no symptoms reported All Other Systems Reviewed Negative Unless Noted: Yes Past Ijavuvp-Zfsihx-Imwpme Hx Past Med/Social Hx: Reviewed Nursing Past Med/Soc Hx Patient Social History Alcohol Use: Denies Use Recreational Drug Use: No Smoking Status: Never a Smoker Type Used: Cigarettes 2nd Hand Smoke Exposure: No Recent Foreign Travel: No Contact w/Someone Who Travel: No Recent Infectious Disease Expo: No Recent Hopitalizations: No Physical Abuse: No Sexual Abuse: No Mistreated: No Fear: No Immunizations Up To Date Tetanus Booster (TDap): Less than 5yrs PED Vaccines UTD: No Date of Pneumonia Vaccine: May 17, 2012 Date of Influenza Vaccine: Jul 03, 2012 Seasonal Allergies Seasonal Allergies: Yes (MILD) Past Medical History Surgeries: Yes Abdominal, Adenoidectomy, Appendectomy, Gallbladder, 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, Nephrectomy, Orthopedic, Tonsillectomy Respiratory: Yes Asthma Currently Using CPAP: No Currently Using BIPAP: No Cardiac: Yes Hypertension Neurological: Yes (RESTLESS LEG SYNDROME) Headaches /Migraines : No 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: Yes (HX ENDOMETRIOSIS ) 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: 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 [employer]UTION[employer] CLE[employer]ER History: 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 Sexually Transmitted Disease: No HIV/AIDS: No Genitourinary: Yes (L KIDNEY REMOVED FOR TUMOR-MALIGNANT;) UTI-Chronic Gastrointestinal: Yes (chronic abdominal pain and nausea/vomiting) Abdominal Hernia, Liver Disease/Jaundice, Pancreatitis, Polyps Musculoskeletal: Yes (COCCYX-REMOVED; MULTIPLE KNEE SURGERIES, ) Chronic Back Pain Endocrine: Yes (CHRONIC PANCREATITIS; OBESITY) HEENT: No Loss of Vision: Denies Hearing Impairment: Denies Cancer: Yes Kidney Did You Recieve Any Treatments: Yes What Type of Treatment Did You: Surgical Intervention Psychosocial: Yes Anxiety, Depression Integumentary: Yes Herpes Blood Disorders: No Adverse Reaction/Blood Tranf: No (N/A) Family Medical History Reviewed Nursing Family Hx Cardiovascular disease 19 FATHER Completed stroke 19 FATHER Diabetes mellitus 19 FATHER Hypercholesterolemia 19 FATHER 19 MOTHER Hypertension 19 FATHER 19 MOTHER Neoplasm 19 MOTHER Psychosocial problem 19 FATHER 19 MOTHER No Pertinent Family Hx, Cancer, Diabetes, Hypertension Physical Exam Vital Signs Vital Signs - First Documented 07/04/19 23:24 Temp 37.2 Pulse 78 Resp 22 B/P (MAP) 121/68 (85) Pulse Ox 97 O2 Delivery Room Air Capillary Refill : Less Than 3 Seconds Height/Weight/BMI Height: 5'3.00" Weight: 246lbs. 0oz. 111.053924nq; 51.00 BMI Method:Stated General Appearance: WD/WN, no apparent distress, obese HEENT: PERRL/EOMI, pharynx normal Neck: full range of motion, supple Respiratory: lungs clear, normal breath sounds Cardiovascular: regular rate, rhythm, no murmur Peripheral Pulses: 2+ Dorsalis Pedis (R), 2+ Left Dors-Pedis (L), 2+ Radial Pulses (R), 2+ Radial Pulses (L) Gastrointestinal: soft, tenderness (right upper quadrant) Extremities: non-tender, normal inspection Back: normal inspection, no CVA tenderness, no vertebral tenderness Neurologic/Psychiatric: alert, oriented x 3 Skin: normal color, warm/dry Progress/Results/Core Measures Results/Orders Lab Results Laboratory Tests Test 07/04/19 23:08 07/04/19 23:22 Range/Units Urine Color YELLOW Urine Clarity SL CLOUDY Urine pH 6.5 5-9 Urine Specific [place] 1.025 H 1.016-1.022 Urine Protein NEGATIVE NEGATIVE Urine Glucose (UA) NEGATIVE NEGATIVE Urine Ketones NEGATIVE NEGATIVE Urine Nitrite NEGATIVE NEGATIVE Urine Bilirubin NEGATIVE NEGATIVE Urine Urobilinogen 0.2 < = 1.0 MG/DL Urine Leukocyte Esterase NEGATIVE NEGATIVE Urine RBC (Auto) NEGATIVE NEGATIVE Urine RBC NONE /HPF Urine WBC 0-2 /HPF Urine Squamous Epithelial Cells 10-25 H /HPF Urine Crystals NONE /LPF Urine Bacteria MODERATE H /HPF Urine Casts NONE /LPF Urine Mucus NEGATIVE /LPF Urine Culture Indicated YES White Blood Count 8.9 4.3-11.0 10^3/uL Red Blood Count 4.79 4.35-5.85 10^6/uL Hemoglobin 12.4 11.5-16.0 G/DL Hematocrit 39 35-52 % Mean Corpuscular Volume 81 80-99 FL Mean Corpuscular Hemoglobin 26 25-34 PG Mean Corpuscular Hemoglobin Concent 32 32-36 G/DL Red Cell Distribution Width 14.6 H 10.0-14.5 % Platelet Count 300 130-400 10^3/uL Mean Platelet Volume 9.5 7.4-10.4 FL Neutrophils (%) (Auto) 56 42-75 % Lymphocytes (%) (Auto) 35 12-44 % Monocytes (%) (Auto) 6 0-12 % Eosinophils (%) (Auto) 2 0-10 % Basophils (%) (Auto) 0 0-10 % Neutrophils # (Auto) 5.0 1.8-7.8 X 10^3 Lymphocytes # (Auto) 3.1 1.0-4.0 X 10^3 Monocytes # (Auto) 0.6 0.0-1.0 X 10^3 Eosinophils # (Auto) 0.2 0.0-0.3 10^3/uL Basophils # (Auto) 0.0 0.0-0.1 10^3/uL Sodium Level 141 135-145 MMOL/L Potassium Level 4.0 3.6-5.0 MMOL/L Chloride Level 107 98-107 MMOL/L Carbon Dioxide Level 21 21-32 MMOL/L Anion Gap 13 5-14 MMOL/L Blood Urea Nitrogen 14 7-18 MG/DL Creatinine 0.99 0.60-1.30 MG/DL Estimat Glomerular Filtration Rate > 60 BUN/Creatinine Ratio 14 Glucose Level 83 70-105 MG/DL Calcium Level 9.3 8.5-10.1 MG/DL Corrected Calcium 8.9 8.5-10.1 MG/DL Total Bilirubin 0.2 0.1-1.0 MG/DL Aspartate Amino Transf (AST/SGOT) 36 H 5-34 U/L Alanine Aminotransferase (ALT/SGPT) 30 0-55 U/L Alkaline Phosphatase 64 40-136 U/L C-Reactive Protein High Sensitivity 1.24 H 0.00-0.50 MG/DL Total Protein 8.1 6.4-8.2 GM/DL Albumin 4.5 3.2-4.5 GM/DL Lipase 103 H 8-78 U/L Micro Results Microbiology 07/04/19 Influenza Types A,B Antigen (CARL) - Final, Complete My Orders Orders - YUKI MARCH MD Cbc With Automated Diff (07/04/19 23:00) Comprehensive Metabolic Panel (07/04/19 23:00) Hs C Reactive Protein (07/04/19 23:00) Ua Culture If Indicated (07/04/19 23:00) Ed Iv/Invasive Line Start (07/04/19 23:00) Urine Culture (07/04/19 23:08) Lipase (07/04/19 23:39) Influenza A And B Antigens (07/04/19 23:39) Hydromorphone Injection (Dilaudid Inject (07/04/19 23:45) Chest 1 View, Ap/Pa Only (07/05/19 00:01) Hydromorphone Injection (Dilaudid Inject (07/05/19 00:30) Diphenhydramine Injection (Benadryl Inje (07/05/19 01:00) Diphenhydramine Injection (Benadryl Inje (1/19/20 01:05) Ns Iv 1000 Ml (Sodium Chloride 0.9%) (07/05/19 01:05) Ns Iv 1000 Ml (Sodium Chloride 0.9%) (07/05/19 01:02) Diphenhydramine Injection (Benadryl Inje (07/05/19 01:54) Medications Given in ED Current Medications Medications Dose Ordered Sig/Neal Route Start Time Stop Time Status Last Admin Dose Admin Hydromorphone HCl 1 mg ONCE ONCE IV 07/04/19 23:45 07/04/19 23:46 DC 07/04/19 23:48 1 MG Hydromorphone HCl 1 mg ONCE ONCE IV 07/05/19 00:30 07/05/19 00:31 DC 07/05/19 00:34 1 MG Vital Signs/I&O 07/04/19 23:24 Temp 37.2 Pulse 78 Resp 22 B/P (MAP) 121/68 (85) Pulse Ox 97 O2 Delivery Room Air Blood Pressure Mean: 85 Progress Progress Note : Progress Note Seen and evaluated. Patient reports that she had CT scan a few days ago that was normal. Her oncologist. We will forego on doing CT scan currently if possible given her long history of multiple radiological encounters. IV, labs, UA and chest x-ray ordered. We will check influenza screen. Dilaudid 1 mg IV ordered for pain. Monitor patient. 0106: Patient still had pain so repeat Dilaudid 1 mg IV ordered. Now she is having some itching which I think is side effect, not allergic reaction, to the Dilaudid. Benadryl 25 mg IV to help control itching. Pain is a little bit better. We will give normal saline 1 L bolus. Labs reviewed and showed no significant findings. Lipase is slightly elevated although not significantly elevated for her and pain is at the right flank. We'll continue to monitor. 0207: Patient did receive second dose of Benadryl for itching. She is better. Pain is a little better and more tolerable. She has pain medicine at home. Do not believe there is indication for further evaluation at this point but we could reconsider that if she returns in pain worsens. At this point I think she can go home safely and patient agrees. She will call her father for a ride. Discharged home with return precautions. Patient verbalize understanding instructions and agreement with plan. Diagnostic Imaging Diagonstic Imaging: Xray Plain Films/CT/US/NM/MRI: chest Comments No acute findings Departure Impression Primary Impression: Right upper quadrant abdominal pain Disposition: 01 HOME, SELF-CARE Condition: Stable Departure-Patient Inst. Decision time for Depature: 02:08 Referrals: CARMEN GIBBS MD (PCP/Family) Primary Care Physician Patient Instructions: Acute Abdomen (Belly Pain), Adult (DC) Add. Discharge Instructions: All discharge instructions reviewed with patient and/or family. Voiced understanding. Clear liquid or light diet for the next 24 hours and then advance as tolerated. Follow-up with your doctor for recheck and further evaluation within the next 2- 3 days. Return for worse pain, fever, vomiting, weakness, breathing problems or other concerns as needed. Continue home medications as previously prescribed. YUKI MARCH MD Jul 05, 2019 00:01
[2019-07-05] MEDS ORDERED: HYDROmorphone 2 MG/ML VIAL (DILAUDID) IV ONE (00:30)
[2019-07-05] MEDS ORDERED: diphenhydrAMINE 50 MG/ML INJ (BENADRYL) ONE (01:00)
[2019-07-05] MEDS ORDERED: NS IV 1000 ML 1,000 ML ONE (01:02)
[2019-07-05] MEDS ORDERED: diphenhydrAMINE 50 MG/ML INJ (BENADRYL) IV STA ×2 (01:05→01:54)
[2019-07-05] MEDS ORDERED: NS IV 1000 ML 1,000 ML IV STA (01:05)
[2019-07-05 02:11] VITALS: BP 142/91
--- NOTE | 2019-07-05 07:17 | Diagnostic Imaging Report ---
Indication: Dyspnea on inspiration, right flank pain. Comparison: 06/14/2019. Discussion: Single portable upright view of the chest was obtained. Normal heart size. No focal consolidation, pleural fluid, or pneumothorax. No osseous abnormality. Impression: 1. Negative portable chest. Dictated by: Dictated on workstation # [id number]
== END 2019-07-05 02:11 | disposition home or self-care (01) ==
LOC: EDUNIT# 22:54 → ER 22:55
DX: R10.11 Right upper quadrant pain (principal); J45.909 Unspecified asthma, uncomplicated; I10 Essential (primary) hypertension; F41.9 Anxiety disorder, unspecified; F32.9 Major depressive disorder, single episode, unspecified; G43.909 Migraine, unspecified, not intractable, without status migrainosus; E66.9 Obesity, unspecified; Z85.528 Personal history of other malignant neoplasm of kidney; Z87.19 Personal history of other diseases of the digestive system; Z88.5 Allergy status to narcotic agent; Z88.1 Allergy status to other antibiotic agents; Z68.43 Body mass index [BMI] 50.0-59.9, adult; Z88.0 Allergy status to penicillin; Z79.52 Long term (current) use of systemic steroids; Z90.89 Acquired absence of other organs; Z90.49 Acquired absence of other specified parts of digestive tract; Z90.710 Acquired absence of both cervix and uterus; Z90.5 Acquired absence of kidney; Z82.49 Family history of ischemic heart disease and other diseases of the circulatory system
CPT/HCPCS: 36415; 71045; 80053; 81000; 83690; 85025; 86141; 87088; 87804; 96361; 96374; 96375; 96376

== ENCOUNTER 2019-07-08 10:10 | Emergency (ER) | payer MEDICARE, MEDICAID ==
[~2019-07-08] VITALS: Ht 160 cm; Wt 117.0 kg
[2019-07-08] MEDS ORDERED: LIDOCAINE 2% VISCOUS 15 ML UDC PO ONE (11:00)
[2019-07-08] MEDS ORDERED: ANTACID SUSP 30 ML UDC (MYLANTA) PO ONE (11:00)
[2019-07-08] MEDS ORDERED: PROMETHAZINE INJ 25 MG/ML (PHENERGAN) AMP IM ONE (11:00)
[2019-07-08] MEDS ORDERED: KETOROLAC 60 MG/2 ML VIAL IM ONE (11:00)
--- NOTE | 2019-07-08 11:01 | ED Abdominal Pain ---
General Chief Complaint: Abdominal/GI Problems Stated Complaint: ABD PAIN Nursing Triage Note: Pt amb to room #5 with c/o nausea, vomiting, diarrhea, and diffuse abd discomfort. Pt reports symptoms began throughout the evening of 07/07/08. Pt denies fever stating, "I've been cold." Pt states, "my stomach pains feel like hunger pains." Sepsis Screen: No Definite Risk Source of Information: Patient Exam Limitations: No Limitations History of Present Illness Date Seen by Provider: Jul 08, 2019 Time Seen by Provider: 10:59 Initial Comments To ER with reports of nausea and epigastric abdominal pain since last night as well as vomiting. She describes the pain as "hunger pains". Timing/Duration: 24 Hours Severity/Quality: Cramping Location: Epigastric Radiation: No Radiation Activities at Onset: None Associated Symptoms: Nausea/Vomiting Allergies and Home Medications Allergies Coded Allergies: fentanyl (Verified Allergy, Unknown, 10/16/18) meperidine (Verified Allergy, Unknown, 10/16/18) penicillin G (Verified Allergy, Unknown, 10/16/18) vancomycin (Unverified Adverse Reaction, Intermediate, severe itching, 10/16/18) Home Medications Benzonatate 100 Mg Capsule, 1-2 TAB PO TID Prescribed by: YAN CHAPARRO on 01/31/19516 Cefprozil 500 Mg Tablet, 500 MG PO BID Prescribed by: YAN CHAPARRO on 01/31/19516 Cyanocobalamin 1,000 Mcg/Ml Inj, 1,000 MCG IJ MONTHLY, (Reported) Estradiol 1 Mg Tablet, 1 MG PO HS, (Reported) Furosemide 20 Mg Tablet, 20 MG PO DAILY Prescribed by: GEORGES FINN on 03/31/19 1127 Guaifenesin/Dextromethorphan 1 Each Tbmp.12hr, 1 EACH PO BID Prescribed by: YAN CHAPARRO on 01/31/19516 Hydrocodone/Acetaminophen 1 Each Tablet, 1 EA PO Q6HR PRN for PAIN-MODERATE Prescribed by: LINDSEY MARROQUIN on 10/23/18 1307 Methylprednisolone 4 Mg Tab.ds.pk, 4 MG PO UD Prescribed by: YAN CHAPARRO on 01/31/19516 Metoprolol Succinate 25 Mg Tab.er.24h, 25 MG PO HS, (Reported) Nitrofurantoin Monohyd/M-Cryst 100 Mg Capsule, 1 TAB PO BID Prescribed by: DEMETRIO KAY on 01/26/19 2140 Omeprazole 40 Mg Capsule.dr, 40 MG PO DAILY, (Reported) Ondansetron 8 Mg Tab.rapdis, 8 MG PO BID PRN for NAUSEA/VOMITING-1ST LINE, (Reported) Promethazine HCl 25 Mg Tablet, 25 MG PO Q6H PRN for NAUSEA/VOMITING Prescribed by: DEMETRIO KAY on 11/15/18 1639 Promethazine HCl 25 Mg Tablet, 25 MG PO Q6H PRN for NAUSEA/VOMITING Prescribed by: MAKAYLA HAWKINS on 03/22/19 0852 Promethazine HCl 25 Mg Tablet, 25 MG PO Q6H PRN for NAUSEA/VOMITING Prescribed by: GEOVANI HERNANDEZ on 05/12/19 1452 Ropinirole HCl 4 Mg Tablet, 4 MG PO HS, (Reported) Sertraline HCl 50 Mg Tablet, 50 MG PO HS, (Reported) Tizanidine HCl 4 Mg Tablet, 4 MG PO TID PRN for MUSCLE SPASMS, (Reported) Patient Home Medication List Home Medication List Reviewed: Yes Review of Systems Review of Systems Constitutional: see HPI EENTM: No Symptoms Reported Respiratory: No Symptoms Reported Cardiovascular: No Symptoms Reported Gastrointestinal: See HPI, Abdominal Pain, Nausea, Vomiting Genitourinary: No Symptoms Reported Musculoskeletal: no symptoms reported Skin: no symptoms reported Psychiatric/Neurological: No Symptoms Reported Endocrine: No Symptoms Reported Past Flabfbj-Kshmbl-Cvhxkx Hx Patient Social History Type Used: Cigarettes 2nd Hand Smoke Exposure: No Recent Foreign Travel: No Contact w/Someone Who Travel: No Recent Infectious Disease Expo: No Recent Hopitalizations: No Immunizations Up To Date Tetanus Booster (TDap): Less than 5yrs PED Vaccines UTD: No Date of Pneumonia Vaccine: May 17, 2012 Date of Influenza Vaccine: Jul 03, 2012 Seasonal Allergies Seasonal Allergies: Yes (MILD) Past Medical History Surgeries: Yes Abdominal, Adenoidectomy, Appendectomy, Gallbladder, 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, Nephrectomy, Orthopedic, Tonsillectomy Respiratory: Yes Asthma Currently Using CPAP: No Currently Using BIPAP: No Cardiac: Yes Hypertension Neurological: Yes (RESTLESS LEG SYNDROME) Headaches /Migraines 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: Yes (HX ENDOMETRIOSIS ) 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: 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 [employer] History: 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 Sexually Transmitted Disease: No HIV/AIDS: No Genitourinary: Yes (L KIDNEY REMOVED FOR TUMOR-MALIGNANT;) UTI-Chronic Gastrointestinal: Yes (chronic abdominal pain and nausea/vomiting) Abdominal Hernia, Liver Disease/Jaundice, Pancreatitis, Polyps Musculoskeletal: Yes (COCCYX-REMOVED; MULTIPLE KNEE SURGERIES, ) Chronic Back Pain Endocrine: Yes (CHRONIC PANCREATITIS; OBESITY) HEENT: No Loss of Vision: Denies Hearing Impairment: Denies Cancer: Yes Kidney Did You Recieve Any Treatments: Yes What Type of Treatment Did You: Surgical Intervention Psychosocial: Yes Anxiety, Depression Integumentary: Yes Herpes Blood Disorders: No Adverse Reaction/Blood Tranf: No (N/A) Family Medical History Cardiovascular disease 19 FATHER Completed stroke 19 FATHER Diabetes mellitus 19 FATHER Hypercholesterolemia 19 FATHER 19 MOTHER Hypertension 19 FATHER 19 MOTHER Neoplasm 19 MOTHER Psychosocial problem 19 FATHER 19 MOTHER No Pertinent Family Hx, Cancer, Diabetes, Hypertension Physical Exam Vital Signs Vital Signs - First Documented 07/08/19 10:49 Temp 36.7 Pulse 82 Resp 16 B/P (MAP) 118/85 (96) Pulse Ox 96 O2 Delivery Room Air Capillary Refill : Less Than 3 Seconds Height/Weight/BMI Height: 5'3.00" Weight: 246lbs. 0oz. 111.132099mn; 45.00 BMI Method:Stated General Appearance: WD/WN, no apparent distress, obese Respiratory: normal breath sounds, no respiratory distress, no accessory muscle use Cardiovascular: regular rate, rhythm, no murmur Gastrointestinal: normal bowel sounds, soft, tenderness (epigastric) Extremities: normal range of motion, non-tender Neurologic/Psychiatric: alert, normal mood/affect, oriented x 3 Skin: normal color, warm/dry Progress/Results/Core Measures Results/Orders Lab Results Laboratory Tests Test 07/08/19 11:30 Range/Units White Blood Count 9.3 4.3-11.0 10^3/uL Red Blood Count 4.85 4.35-5.85 10^6/uL Hemoglobin 12.5 11.5-16.0 G/DL Hematocrit 39 35-52 % Mean Corpuscular Volume 81 80-99 FL Mean Corpuscular Hemoglobin 26 25-34 PG Mean Corpuscular Hemoglobin Concent 32 32-36 G/DL Red Cell Distribution Width 14.7 H 10.0-14.5 % Platelet Count 266 130-400 10^3/uL Mean Platelet Volume 9.3 7.4-10.4 FL Neutrophils (%) (Auto) 68 42-75 % Lymphocytes (%) (Auto) 26 12-44 % Monocytes (%) (Auto) 4 0-12 % Eosinophils (%) (Auto) 2 0-10 % Basophils (%) (Auto) 0 0-10 % Neutrophils # (Auto) 6.3 1.8-7.8 X 10^3 Lymphocytes # (Auto) 2.4 1.0-4.0 X 10^3 Monocytes # (Auto) 0.3 0.0-1.0 X 10^3 Eosinophils # (Auto) 0.2 0.0-0.3 10^3/uL Basophils # (Auto) 0.0 0.0-0.1 10^3/uL Sodium Level 139 135-145 MMOL/L Potassium Level 4.1 3.6-5.0 MMOL/L Chloride Level 106 98-107 MMOL/L Carbon Dioxide Level 20 L 21-32 MMOL/L Anion Gap 13 5-14 MMOL/L Blood Urea Nitrogen 16 7-18 MG/DL Creatinine 0.99 0.60-1.30 MG/DL Estimat Glomerular Filtration Rate > 60 BUN/Creatinine Ratio 16 Glucose Level 96 70-105 MG/DL Calcium Level 9.3 8.5-10.1 MG/DL Corrected Calcium 9.1 8.5-10.1 MG/DL Total Bilirubin 0.3 0.1-1.0 MG/DL Aspartate Amino Transf (AST/SGOT) 30 5-34 U/L Alanine Aminotransferase (ALT/SGPT) 27 0-55 U/L Alkaline Phosphatase 72 40-136 U/L Total Protein 7.5 6.4-8.2 GM/DL Albumin 4.2 3.2-4.5 GM/DL Lipase 112 H 8-78 U/L My Orders Orders - GEORGES FINN PATENT DRAFTER Cbc With Automated Diff (07/08/19 10:57) Lipase (07/08/19 10:57) Comprehensive Metabolic Panel (07/08/19 10:57) Lidocaine 2% Viscous 15 Ml (Xylocaine Vi (07/08/19 11:00) Antacid Suspension (Mylanta Suspension (07/08/19 11:00) Ketorolac Injection (Toradol Injection) (07/08/19 11:00) Promethazine Injection (Phenergan Injec (07/08/19 11:00) Medications Given in ED Current Medications Medications Dose Ordered Sig/Neal Route Start Time Stop Time Status Last Admin Dose Admin Al Hydrox/Mg Hydrox/Simethicone 30 ml ONCE ONCE PO 07/08/19 11:00 07/08/19 11:01 DC 07/08/19 11:06 30 ML Ketorolac Tromethamine 60 mg ONCE ONCE IM 07/08/19 11:00 07/08/19 11:01 DC 07/08/19 11:06 60 MG Lidocaine HCl 10 ml ONCE ONCE PO 07/08/19 11:00 07/08/19 11:01 DC 07/08/19 11:06 10 ML Promethazine HCl 25 mg ONCE ONCE IM 07/08/19 11:00 07/08/19 11:01 DC 07/08/19 11:05 25 MG Vital Signs/I&O 07/08/19 07/08/19 10:49 12:45 Temp 36.7 36.7 Pulse 82 75 Resp 16 16 B/P (MAP) 118/85 (96) 96/49 (96) Pulse Ox 96 98 O2 Delivery Room Air Room Air Blood Pressure Mean: 96 Departure Communication (Admissions) She's been to the emergency room 40 times since this time last year. She's had a multitude of CT scans and laboratory evaluations for this pain. Impression Primary Impression: Chronic abdominal pain Disposition: HOME, SELF-CARE Condition: Stable Departure-Patient Inst. Decision time for Depature: 11:00 Referrals: CARMEN GIBBS MD (PCP/Family) Primary Care Physician Patient Instructions: Chronic Pain GEORGES FINN APRN Jul 08, 2019 11:01
[2019-07-08 11:48] LABS: BASOPHILS % (AUTO) 0 % (0-10); EOSINOPHILS # (AUTO) 0.2 10^3/uL (0.0-0.3); EOSINOPHILS % (AUTO) 2 % (0-10); HEMATOCRIT 39 % (35-52); HEMOGLOBIN 12.5 G/DL (11.5-16.0); LYMPHOCYTES # (AUTO) 2.4 X 10^3 (1.0-4.0); LYMPHOCYTES % (AUTO) 26 % (12-44); MEAN CORPUSCULAR HEMOGLOBIN 26 PG (25-34); MEAN CORPUSCULAR HGB CONC 32 G/DL (32-36); MEAN CORPUSCULAR VOLUME 81 FL (80-99); MEAN PLATELET VOLUME 9.3 FL (7.4-10.4); MONOCYTES # (AUTO) 0.3 X 10^3 (0.0-1.0); MONOCYTES % (AUTO) 4 % (0-12); NEUTROPHILS # (AUTO) 6.3 X 10^3 (1.8-7.8); NEUTROPHILS % (AUTO) 68 % (42-75); PLATELET COUNT 266 10^3/uL (130-400); RED CELL DISTRIBUTION WIDTH 14.7 % (10.0-14.5); WHITE BLOOD COUNT 9.3 10^3/uL (4.3-11.0)
[2019-07-08 12:13] LABS: ALANINE AMINOTRANSFERASE 27 U/L (0-55); ALBUMIN 4.2 GM/DL (3.2-4.5); ALKALINE PHOSPHATASE 72 U/L (40-136); BILIRUBIN,TOTAL 0.3 MG/DL (0.1-1.0); BUN/CREATININE RATIO 16; CALCIUM 9.3 MG/DL (8.5-10.1); CARBON DIOXIDE 20 MMOL/L (21-32); CHLORIDE 106 MMOL/L (98-107); CREATININE SERUM 0.99 MG/DL (0.60-1.30); GFR ESTIMATED > 60; GLUCOSE 96 MG/DL (70-105); LIPASE 112 U/L (8-78); POTASSIUM 4.1 MMOL/L (3.6-5.0); SODIUM 139 MMOL/L (135-145); TOTAL PROTEIN 7.5 GM/DL (6.4-8.2)
[2019-07-08 12:45] VITALS: BP 96/49
== END 2019-07-08 12:45 | disposition home or self-care (01) ==
LOC: EDUNIT# 10:10 → ER 10:11
DX: G89.29 Other chronic pain (principal); R10.13 Epigastric pain; J45.909 Unspecified asthma, uncomplicated; I10 Essential (primary) hypertension; G43.909 Migraine, unspecified, not intractable, without status migrainosus; F41.9 Anxiety disorder, unspecified; F32.9 Major depressive disorder, single episode, unspecified; E66.9 Obesity, unspecified; Z87.19 Personal history of other diseases of the digestive system; Z87.440 Personal history of urinary (tract) infections; Z85.528 Personal history of other malignant neoplasm of kidney; Z88.5 Allergy status to narcotic agent; Z88.1 Allergy status to other antibiotic agents; Z88.0 Allergy status to penicillin; Z79.52 Long term (current) use of systemic steroids; Z90.89 Acquired absence of other organs; Z90.49 Acquired absence of other specified parts of digestive tract; Z90.710 Acquired absence of both cervix and uterus; Z90.5 Acquired absence of kidney; Z82.49 Family history of ischemic heart disease and other diseases of the circulatory system; Z68.42 Body mass index [BMI] 45.0-49.9, adult
CPT/HCPCS: 36415; 80053; 83690; 85025; 99284

== ENCOUNTER 2019-08-12 13:02 | Emergency (ER) | payer MEDICARE, MEDICAID ==
[~2019-08-12] VITALS: Ht 160 cm; Wt 118.0 kg
[~2019-08-12 13:02] MED LIST changes: -FLUO20CA45 PO; +FLUO20CA46 PO; -ROPI2TAB4 PO; +ROPI2TAB6 PO
[2019-08-12 13:54] LABS: BASOPHILS % (AUTO) 0 % (0-10); EOSINOPHILS # (AUTO) 0.2 10^3/uL (0.0-0.3); EOSINOPHILS % (AUTO) 2 % (0-10); HEMATOCRIT 40 % (35-52); HEMOGLOBIN 12.7 G/DL (11.5-16.0); LYMPHOCYTES # (AUTO) 2.2 X 10^3 (1.0-4.0); LYMPHOCYTES % (AUTO) 31 % (12-44); MEAN CORPUSCULAR HEMOGLOBIN 26 PG (25-34); MEAN CORPUSCULAR HGB CONC 32 G/DL (32-36); MEAN CORPUSCULAR VOLUME 81 FL (80-99); MONOCYTES # (AUTO) 0.4 X 10^3 (0.0-1.0); MONOCYTES % (AUTO) 5 % (0-12); NEUTROPHILS # (AUTO) 4.3 X 10^3 (1.8-7.8); NEUTROPHILS % (AUTO) 61 % (42-75); PLATELET COUNT 256 10^3/uL (130-400)
[2019-08-12 13:54] LABS: BILIRUBIN,URINE NEGATIVE (NEGATIVE); CLARITY,URINE SL CLOUDY; COLOR,URINE YELLOW; GLUCOSE, URINE (UA) NEGATIVE (NEGATIVE); KETONES,URINE NEGATIVE (NEGATIVE); LEUKOCYTE ESTERASE ,URINE NEGATIVE (NEGATIVE); NITRITE,URINE NEGATIVE (NEGATIVE); PH,URINE 5.5 (5-9); PROTEIN,URINE NEGATIVE (NEGATIVE)
[2019-08-12 14:19] LABS: ALANINE AMINOTRANSFERASE 31 U/L (0-55); ALBUMIN 4.1 GM/DL (3.2-4.5); ALKALINE PHOSPHATASE 68 U/L (40-136); AMYLASE 68 U/L (25-125); BILIRUBIN,TOTAL 0.3 MG/DL (0.1-1.0); BUN/CREATININE RATIO 17; CALCIUM 9.4 MG/DL (8.5-10.1); CARBON DIOXIDE 24 MMOL/L (21-32); CHLORIDE 105 MMOL/L (98-107); GFR ESTIMATED > 60; GLUCOSE 88 MG/DL (70-105); LIPASE 43 U/L (8-78); POTASSIUM 4.1 MMOL/L (3.6-5.0); SODIUM 139 MMOL/L (135-145); TOTAL PROTEIN 7.7 GM/DL (6.4-8.2)
[2019-08-12 14:19] LABS: AMPHETAMINE SCREEN, URINE NEGATIVE (NEGATIVE); BARBITURATE SCREEN URINE NEGATIVE (NEGATIVE); BENZODIAZEPINES SCREEN URINE NEGATIVE (NEGATIVE); CANNABINOID SCREEN, URINE NEGATIVE (NEGATIVE); COCAINE SCREEN URINE NEGATIVE (NEGATIVE); METHADONE STAT NEGATIVE (NEGATIVE); METHAMPHETAMINE SCREEN URINE S NEGATIVE (NEGATIVE); OPIATE SCREEN URINE NEGATIVE (NEGATIVE); OXYCODONE STAT NEGATIVE (NEGATIVE); PROPOXYPHENE STAT NEGATIVE (NEGATIVE); TRICYCLIC ANTIDEPRESSANTS SCRE NEGATIVE (NEGATIVE)
[2019-08-12 14:20] LABS: ACETAMINOPHEN < 10 UG/ML (10-30)
[2019-08-12 14:21] LABS: BACTERIA,URINE MODERATE /HPF; RBC,URINE RARE /HPF
[2019-08-12] MEDS ORDERED: METO5TAB75 PO (14:50)
--- NOTE | 2019-08-12 14:56 | ED General ---
General Chief Complaint: Back Problems Stated Complaint: ABD PAIN;HEAD ACHE Nursing Triage Note: Pt amb to triage with c/o medial back discomfort radiating to bilat lower abd., nausea, photophobia, et headahce. Pt reports symptoms began on this day. Pt states, "this happens when I get dehydrated, and I feel dehydrated." Pt reports to have taken 1g tylenol @0800 on this day. Pt denies urinary symtpoms. Pt denies fever et reports chills. A&OX4. Nursing Sepsis Screen: No Definite Risk Allergies and Home Medications Allergies Coded Allergies: fentanyl (Verified Allergy, Unknown, 10/16/18) meperidine (Verified Allergy, Unknown, 10/16/18) penicillin G (Verified Allergy, Unknown, 10/16/18) vancomycin (Unverified Adverse Reaction, Intermediate, severe itching, 10/16/18) Home Medications Benzonatate 100 Mg Capsule, 1-2 TAB PO TID Prescribed by: YAN CHAPARRO on 01/31/19516 Cefprozil 500 Mg Tablet, 500 MG PO BID Prescribed by: YAN CHAPARRO on 01/31/19516 Cyanocobalamin 1,000 Mcg/Ml Inj, 1,000 MCG IJ MONTHLY, (Reported) Estradiol 1 Mg Tablet, 1 MG PO HS, (Reported) Furosemide 20 Mg Tablet, 20 MG PO DAILY Prescribed by: GEORGES FINN on 03/31/19 1127 Guaifenesin/Dextromethorphan 1 Each Tbmp.12hr, 1 EACH PO BID Prescribed by: YAN CHAPARRO on 01/31/19516 Hydrocodone/Acetaminophen 1 Each Tablet, 1 EA PO Q6HR PRN for PAIN-MODERATE Prescribed by: LINDSEY MARROQUIN on 10/23/18 1307 Methylprednisolone 4 Mg Tab.ds.pk, 4 MG PO UD Prescribed by: YAN CHAPARRO on 01/31/19516 Metoprolol Succinate 25 Mg Tab.er.24h, 25 MG PO HS, (Reported) Nitrofurantoin Monohyd/M-Cryst 100 Mg Capsule, 1 TAB PO BID Prescribed by: DEMETRIO KAY on 01/26/19 2140 Omeprazole 40 Mg Capsule.dr, 40 MG PO DAILY, (Reported) Ondansetron 8 Mg Tab.rapdis, 8 MG PO BID PRN for NAUSEA/VOMITING-1ST LINE, (Reported) Promethazine HCl 25 Mg Tablet, 25 MG PO Q6H PRN for NAUSEA/VOMITING Prescribed by: DEMETRIO KAY on 11/15/18 1639 Promethazine HCl 25 Mg Tablet, 25 MG PO Q6H PRN for NAUSEA/VOMITING Prescribed by: MAKAYLA HAWKINS on 03/22/19 0852 Promethazine HCl 25 Mg Tablet, 25 MG PO Q6H PRN for NAUSEA/VOMITING Prescribed by: GEOVANI HERNANDEZ on 05/12/19 1452 Ropinirole HCl 4 Mg Tablet, 4 MG PO HS, (Reported) Sertraline HCl 50 Mg Tablet, 50 MG PO HS, (Reported) Tizanidine HCl 4 Mg Tablet, 4 MG PO TID PRN for MUSCLE SPASMS, (Reported) Past Dthyjgq-Qdrkco-Hxmnmm Hx Patient Social History Alcohol Use: Denies Use Recreational Drug Use: No Smoking Status: Never a Smoker Type Used: Cigarettes 2nd Hand Smoke Exposure: No Recent Foreign Travel: No Contact w/Someone Who Travel: No Recent Infectious Disease Expo: No Recent Hopitalizations: No Physical Abuse: No Sexual Abuse: No Mistreated: No Fear: No Immunizations Up To Date Tetanus Booster (TDap): Less than 5yrs PED Vaccines UTD: No Date of Pneumonia Vaccine: May 17, 2012 Date of Influenza Vaccine: Jul 03, 2012 Seasonal Allergies Seasonal Allergies: Yes (MILD) Past Medical History Surgeries: Yes Abdominal, Adenoidectomy, Appendectomy, Gallbladder, 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, Nephrectomy, Orthopedic, Tonsillectomy Respiratory: Yes Asthma Currently Using CPAP: No Currently Using BIPAP: No Cardiac: Yes Hypertension Neurological: Yes (RESTLESS LEG SYNDROME) Headaches /Migraines 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: Yes (HX ENDOMETRIOSIS ) 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: 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 Sexually Transmitted Disease: No HIV/AIDS: No Genitourinary: Yes (L KIDNEY REMOVED FOR TUMOR-MALIGNANT;) UTI-Chronic Gastrointestinal: Yes (chronic abdominal pain and nausea/vomiting) Abdominal Hernia, Liver Disease/Jaundice, Pancreatitis, Polyps Musculoskeletal: Yes (COCCYX-REMOVED; MULTIPLE KNEE SURGERIES, ) Chronic Back Pain Endocrine: Yes (CHRONIC PANCREATITIS; OBESITY) HEENT: No Loss of Vision: Denies Hearing Impairment: Denies Cancer: Yes Kidney Did You Recieve Any Treatments: Yes What Type of Treatment Did You: Surgical Intervention Psychosocial: Yes Anxiety, Depression Integumentary: Yes Herpes Blood Disorders: No Adverse Reaction/Blood Tranf: No (N/A) Family Medical History Cardiovascular disease 19 FATHER Completed stroke 19 FATHER Diabetes mellitus 19 FATHER Hypercholesterolemia 19 FATHER 19 MOTHER Hypertension 19 FATHER 19 MOTHER Neoplasm 19 MOTHER Psychosocial problem 19 FATHER 19 MOTHER No Pertinent Family Hx, Cancer, Diabetes, Hypertension Physical Exam Vital Signs Vital Signs - First Documented 08/12/19 13:18 Temp 36.6 Pulse 63 Resp 18 B/P (MAP) 112/80 (91) Pulse Ox 97 O2 Delivery Room Air Capillary Refill : Less Than 3 Seconds Height, Weight, BMI Height: 5'3.00" Weight: 246lbs. 0oz. [id number]; 46.00 BMI Method:Stated Progress/Results/Core Measures Suspected Sepsis Recent Fever Within 48 Hours: No Infection Criteria Present: Suspected New Infection New/Unexplained Altered Menta: No Sepsis Screen: No Definite Risk SIRS Temperature: Pulse: 63 Respiratory Rate: 18 Laboratory Tests 08/12/19 13:45: White Blood Count 7.0 Blood Pressure 112 /80 Mean: 91 Laboratory Tests 08/12/19 13:45: Creatinine 0.90, Platelet Count 256, Total Bilirubin 0.3 Results/Orders Lab Results Laboratory Tests Test 08/12/19 13:38 08/12/19 13:45 Range/Units Urine Color YELLOW Urine Clarity SL CLOUDY Urine pH 5.5 5-9 Urine Specific [place] 1.025 H 1.016-1.022 Urine Protein NEGATIVE NEGATIVE Urine Glucose (UA) NEGATIVE NEGATIVE Urine Ketones NEGATIVE NEGATIVE Urine Nitrite NEGATIVE NEGATIVE Urine Bilirubin NEGATIVE NEGATIVE Urine Urobilinogen 0.2 < = 1.0 MG/DL Urine Leukocyte Esterase NEGATIVE NEGATIVE Urine RBC (Auto) NEGATIVE NEGATIVE Urine RBC RARE /HPF Urine WBC 2-5 /HPF Urine Squamous Epithelial Cells 10-25 H /HPF Urine Crystals NONE /LPF Urine Bacteria MODERATE H /HPF Urine Casts NONE /LPF Urine Mucus NEGATIVE /LPF Urine Culture Indicated NO Urine Opiates Screen NEGATIVE NEGATIVE Urine Oxycodone Screen NEGATIVE NEGATIVE Urine Methadone Screen NEGATIVE NEGATIVE Urine Propoxyphene Screen NEGATIVE NEGATIVE Urine Barbiturates Screen NEGATIVE NEGATIVE Ur Tricyclic Antidepressants Screen NEGATIVE NEGATIVE Urine Phencyclidine Screen NEGATIVE NEGATIVE Urine Amphetamines Screen NEGATIVE NEGATIVE Urine Methamphetamines Screen NEGATIVE NEGATIVE Urine Benzodiazepines Screen NEGATIVE NEGATIVE Urine Cocaine Screen NEGATIVE NEGATIVE Urine Cannabinoids Screen NEGATIVE NEGATIVE White Blood Count 7.0 4.3-11.0 10^3/uL Red Blood Count 4.91 4.35-5.85 10^6/uL Hemoglobin 12.7 11.5-16.0 G/DL Hematocrit 40 35-52 % Mean Corpuscular Volume 81 80-99 FL Mean Corpuscular Hemoglobin 26 25-34 PG Mean Corpuscular Hemoglobin Concent 32 32-36 G/DL Red Cell Distribution Width 15.0 H 10.0-14.5 % Platelet Count 256 130-400 10^3/uL Mean Platelet Volume 9.0 7.4-10.4 FL Neutrophils (%) (Auto) 61 42-75 % Lymphocytes (%) (Auto) 31 12-44 % Monocytes (%) (Auto) 5 0-12 % Eosinophils (%) (Auto) 2 0-10 % Basophils (%) (Auto) 0 0-10 % Neutrophils # (Auto) 4.3 1.8-7.8 X 10^3 Lymphocytes # (Auto) 2.2 1.0-4.0 X 10^3 Monocytes # (Auto) 0.4 0.0-1.0 X 10^3 Eosinophils # (Auto) 0.2 0.0-0.3 10^3/uL Basophils # (Auto) 0.0 0.0-0.1 10^3/uL Sodium Level 139 135-145 MMOL/L Potassium Level 4.1 3.6-5.0 MMOL/L Chloride Level 105 98-107 MMOL/L Carbon Dioxide Level 24 21-32 MMOL/L Anion Gap 10 5-14 MMOL/L Blood Urea Nitrogen 15 7-18 MG/DL Creatinine 0.90 0.60-1.30 MG/DL Estimat Glomerular Filtration Rate > 60 BUN/Creatinine Ratio 17 Glucose Level 88 70-105 MG/DL Calcium Level 9.4 8.5-10.1 MG/DL Corrected Calcium 9.3 8.5-10.1 MG/DL Magnesium Level 2.0 1.6-2.4 MG/DL Total Bilirubin 0.3 0.1-1.0 MG/DL Aspartate Amino Transf (AST/SGOT) 50 H 5-34 U/L Alanine Aminotransferase (ALT/SGPT) 31 0-55 U/L Alkaline Phosphatase 68 40-136 U/L Total Protein 7.7 6.4-8.2 GM/DL Albumin 4.1 3.2-4.5 GM/DL Amylase Level 68 25-125 U/L Lipase 43 8-78 U/L Acetaminophen Level < 10 L 10-30 UG/ML Serum Alcohol < 10 <10 MG/DL My Orders Orders - YAN CHAPARRO DO Drug Screen Stat (Urine) (08/12/19 13:30) Ua Culture If Indicated (08/12/19 13:30) Ed Iv/Invasive Line Start (08/12/19 13:33) Acetaminophen (08/12/19 13:33) Alcohol (08/12/19 13:33) Amylase (08/12/19 13:33) Cbc With Automated Diff (08/12/19 13:33) Comprehensive Metabolic Panel (08/12/19 13:33) Lipase (08/12/19 13:33) Magnesium (08/12/19 13:33) Metoclopramide Injection (Reglan Injecti (08/12/19 15:00) Diphenhydramine Injection (Benadryl Inje (08/12/19 15:00) Vital Signs/I&O 08/12/19 13:18 Temp 36.6 Pulse 63 Resp 18 B/P (MAP) 112/80 (91) Pulse Ox 97 O2 Delivery Room Air Capillary Refill : Less Than 3 Seconds Blood Pressure Mean: 91 Departure Impression Primary Impression: Chronic abdominal pain Additional Impression: CHRONIC HEADACHE COMPLAINT Disposition: 01 HOME, SELF-CARE Condition: Stable Departure-Patient Inst. Referrals: CARMEN GIBBS MD (PCP/Family) Primary Care Physician Patient Instructions: Acute Abdomen (Belly Pain), Adult (DC), Headache, Adult (DC), MANAGING YOUR CHRONIC PAIN Add. 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 Voiced understanding. Scripts Metoclopramide HCl (Reglan) 5 Mg Tablet 5-10 MG PO QID for STOMACH DISCOMFORT, #20 TAB Prov: YAN CHAPARRO DO 08/12/19 YAN CHAPARRO DO Aug 12, 2019 14:56
[2019-08-12] MEDS ORDERED: METOCLOPRAMIDE INJ 10 MG/2 ML (REGLAN) IVP ONE (15:00)
[2019-08-12] MEDS ORDERED: diphenhydrAMINE 50 MG/ML INJ (BENADRYL) IVP ONE (15:00)
[2019-08-12 15:13] VITALS: BP 133/78
== END 2019-08-12 15:13 | disposition home or self-care (01) ==
LOC: EDUNIT# 13:02 → ER 13:04
DX: R10.31 Right lower quadrant pain (principal); R10.32 Left lower quadrant pain; G89.29 Other chronic pain; R51 Headache; J45.909 Unspecified asthma, uncomplicated; I10 Essential (primary) hypertension; F41.9 Anxiety disorder, unspecified; F32.9 Major depressive disorder, single episode, unspecified; Z86.010 Personal history of colon polyps; Z86.018 Personal history of other benign neoplasm; Z86.59 Personal history of other mental and behavioral disorders; Z88.0 Allergy status to penicillin; Z88.1 Allergy status to other antibiotic agents; Z88.5 Allergy status to narcotic agent; Z90.49 Acquired absence of other specified parts of digestive tract; Z90.710 Acquired absence of both cervix and uterus; Z90.89 Acquired absence of other organs; Z82.49 Family history of ischemic heart disease and other diseases of the circulatory system
CPT/HCPCS: 36415; 80053; 80306; 80320; 80329; 81000; 82150; 83690; 83735; 85025; 96374; 96375

== ENCOUNTER 2019-09-07 05:40 | Outpatient (CLI) | payer MEDICARE, MEDICAID ==
[~2019-09-07] VITALS: Ht 160 cm; Wt 120.0 kg
[~2019-09-07 05:40] MED LIST changes: +ACHYD1T PO; -HYDR-3816 PO; -HYDR-3820 PO; +METO5TAB75 PO
[2019-09-07] MEDS ORDERED: MULT-178 PO (14:04)
== END 2019-09-07 14:12 | disposition home or self-care (01) ==
LOC: PREOP 05:40
PROVIDERS: ATTEND Surgery
DX: Z01.818 Encounter for other preprocedural examination (principal)

== ENCOUNTER 2019-10-15 17:44 | Emergency (ER) | payer MEDICARE, MEDICAID ==
[~2019-10-15] VITALS: Ht 157 cm; Wt 117.0 kg
[~2019-10-15 17:44] MED LIST changes: +MULT-178 PO
--- NOTE | 2019-10-15 18:04 | ED Abdominal Pain ---
General Stated Complaint: L SIDE PAIN Source of Information: Patient Exam Limitations: No Limitations History of Present Illness Date Seen by Provider: Oct 15, 2019 Time Seen by Provider: 17:48 Initial Comments Patient presents to ER by private conveyance with chief complaint last couple days she's been having some left-sided abdominal pain associated with the hernia mesh that was placed by Dr. Roman. She says she's been doing a lot of heavy lifting moving table saw having some shoveling and other outdoor work lately and she thinks she aggravated her mesh. She went to the urgent care clinic couple days ago and they told her there wasn't much they can do in terms of imaging. She already has hydrocodone which she takes 1-2 time every 6 hours. Her last dose was a couple hours ago. She does not get decent pain relief from it. She does not feel that topical creams or heat have been helpful. She cannot take NSAIDs because of her history of single kidney. It hurts worse if touch her left abdominal wall. She's not having any diarrhea and had a normal bowel movement this morning. She's had no fevers chills cough shortness of breath. She has occasional nausea for which she's been using her Zofran. Allergies and Home Medications Allergies Coded Allergies: fentanyl (Verified Allergy, Unknown, 10/16/18) meperidine (Verified Allergy, Unknown, 10/16/18) penicillin G (Verified Allergy, Unknown, 10/16/18) vancomycin (Unverified Adverse Reaction, Intermediate, severe itching, 10/16/18) Home Medications Estradiol 1 Mg Tablet, 1 MG PO HS, (Reported) Multivitamin 1 Each Tablet, 1 EACH PO DAILY, (Reported) Ropinirole HCl 4 Mg Tablet, 4 MG PO HS, (Reported) Sertraline HCl 50 Mg Tablet, 50 MG PO HS, (Reported) Patient Home Medication List Home Medication List Reviewed: Yes Review of Systems Review of Systems Constitutional: No chills, No diaphoresis EENTM: No Blurred Vision, No Double Vision Respiratory: Denies Cough, Denies Shortness of Air Cardiovascular: Denies Chest Pain, Denies Edema Gastrointestinal: See HPI; Denies Abdomen Distended; Abdominal Pain; Denies Constipated, Denies Diarrhea; Nausea; Denies Poor Fluid Intake, Denies Vomiting Genitourinary: Denies Burning, Denies Discharge Musculoskeletal: No back pain, No joint pain Skin: No pruritus, No rash All Other Systems Reviewed Negative Unless Noted: Yes Past Eirpsey-Kbjivl-Kzaqmf Hx Patient Social History Alcohol Use: Denies Use Recreational Drug Use: No Smoking Status: Current Everyday Smoker Type Used: Cigarettes 2nd Hand Smoke Exposure: No Recent Foreign Travel: No Contact w/Someone Who Travel: No Recent Hopitalizations: No Immunizations Up To Date Tetanus Booster (TDap): Less than 5yrs PED Vaccines UTD: No Date of Pneumonia Vaccine: May 17, 2012 Date of Influenza Vaccine: Jul 03, 2012 Seasonal Allergies Seasonal Allergies: Yes (MILD) Past Medical History Surgeries: Yes (KNEE SCOPES X5, HERNIA X2) Abdominal, Adenoidectomy, Appendectomy, Gallbladder, 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, Nephrectomy, Orthopedic, Tonsillectomy Respiratory: Yes Asthma Currently Using CPAP: No Currently Using BIPAP: No Cardiac: No Hypertension Neurological: Yes (RESTLESS LEG SYNDROME; CHRONIC DAILY HEADACHE COMPLAINTS) Headaches /Migraines 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: Yes (HX ENDOMETRIOSIS ) 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: 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 Sexually Transmitted Disease: No HIV/AIDS: No Genitourinary: Yes (L KIDNEY REMOVED FOR TUMOR-MALIGNANT;) UTI-Chronic Gastrointestinal: Yes (CHRONIC ABDOMINAL PAIN AND NAUSEA/VOMTING COMPLAINTS) Abdominal Hernia, Liver Disease/Jaundice, Pancreatitis, Polyps Musculoskeletal: Yes (COCCYX-REMOVED; MULTIPLE KNEE SURGERIES, ) Chronic Back Pain Endocrine: Yes (CHRONIC PANCREATITIS; OBESITY) HEENT: No Loss of Vision: Denies Hearing Impairment: Denies Cancer: Yes Kidney Did You Recieve Any Treatments: Yes What Type of Treatment Did You: Surgical Intervention Psychosocial: Yes Depression Integumentary: No Herpes Blood Disorders: No Adverse Reaction/Blood Tranf: No (N/A) Family Medical History Cardiovascular disease 19 FATHER Completed stroke 19 FATHER Diabetes mellitus 19 FATHER Hypercholesterolemia 19 FATHER 19 MOTHER Hypertension 19 FATHER 19 MOTHER Neoplasm 19 MOTHER Psychosocial problem 19 FATHER 19 MOTHER No Pertinent Family Hx, Cancer, Diabetes, Hypertension PSH: -RIGHT KNEE SCOPE X 5 -LEFT KNEE SCOPE X 2 -NASAL FRACTURE REPAIR -COCCYX REMOVAL -LEFT NEPHRECTOMY FOR MALIGNANCY -LEFT MID ABDOMEN INCISIONAL HERNIA REPAIR -DRAINAGE OF ABDOMINAL WALL ABSCESS -MULTIPLE EGD'S AND COLONOSCOPIES Physical Exam Vital Signs Vital Signs - First Documented 10/15/19 18:09 Temp 36.6 Pulse 86 Resp 18 B/P (MAP) 139/93 (108) Pulse Ox 98 O2 Delivery Room Air Capillary Refill : Height/Weight/BMI Height: 5'3.00" Weight: 246lbs. 0oz. 111.938309kc; 46.87 BMI Method:Stated General Appearance: mild distress, obese HEENT: PERRL/EOMI, pharynx normal Neck: full range of motion, normal inspection Respiratory: no respiratory distress, no accessory muscle use Cardiovascular: normal peripheral pulses, regular rate, rhythm (80s) Peripheral Pulses: 2+ Radial Pulses (R), 2+ Radial Pulses (L) Gastrointestinal: normal bowel sounds, soft, guarding (upper quadrant abdomen) Extremities: normal range of motion, normal inspection, normal capillary refill Neurologic/Psychiatric: alert, normal mood/affect, oriented x 3 Skin: normal color, warm/dry, other (well-healed abdominal wall scars.) Progress/Results/Core Measures Results/Orders Lab Results Laboratory Tests Test 10/15/19 18:05 Range/Units White Blood Count 8.7 4.3-11.0 10^3/uL Red Blood Count 4.87 4.35-5.85 10^6/uL Hemoglobin 13.0 11.5-16.0 G/DL Hematocrit 40 35-52 % Mean Corpuscular Volume 82 80-99 FL Mean Corpuscular Hemoglobin 27 25-34 PG Mean Corpuscular Hemoglobin Concent 33 32-36 G/DL Red Cell Distribution Width 15.4 H 10.0-14.5 % Platelet Count 260 130-400 10^3/uL Mean Platelet Volume 9.3 7.4-10.4 FL Neutrophils (%) (Auto) 62 42-75 % Lymphocytes (%) (Auto) 31 12-44 % Monocytes (%) (Auto) 5 0-12 % Eosinophils (%) (Auto) 3 0-10 % Basophils (%) (Auto) 0 0-10 % Neutrophils # (Auto) 5.4 1.8-7.8 X 10^3 Lymphocytes # (Auto) 2.7 1.0-4.0 X 10^3 Monocytes # (Auto) 0.4 0.0-1.0 X 10^3 Eosinophils # (Auto) 0.2 0.0-0.3 10^3/uL Basophils # (Auto) 0.0 0.0-0.1 10^3/uL Urine Color YELLOW Urine Clarity CLEAR Urine pH 5.5 5-9 Urine Specific [place] 1.025 H 1.016-1.022 Urine Protein NEGATIVE NEGATIVE Urine Glucose (UA) NEGATIVE NEGATIVE Urine Ketones NEGATIVE NEGATIVE Urine Nitrite NEGATIVE NEGATIVE Urine Bilirubin NEGATIVE NEGATIVE Urine Urobilinogen 0.2 < = 1.0 MG/DL Urine Leukocyte Esterase NEGATIVE NEGATIVE Urine RBC (Auto) NEGATIVE NEGATIVE Urine RBC 0-2 /HPF Urine WBC 2-5 /HPF Urine Squamous Epithelial Cells 2-5 /HPF Urine Crystals PRESENT H /LPF Urine Amorphous Sediment FEW HAMMAD URATES H /LPF Urine Bacteria MODERATE H /HPF Urine Casts NONE /LPF Urine Mucus NEGATIVE /LPF Urine Culture Indicated YES Sodium Level 142 135-145 MMOL/L Potassium Level 4.4 3.6-5.0 MMOL/L Chloride Level 105 98-107 MMOL/L Carbon Dioxide Level 25 21-32 MMOL/L Anion Gap 12 5-14 MMOL/L Blood Urea Nitrogen 16 7-18 MG/DL Creatinine 0.96 0.60-1.30 MG/DL Estimat Glomerular Filtration Rate > 60 BUN/Creatinine Ratio 17 Glucose Level 91 70-105 MG/DL Calcium Level 9.9 8.5-10.1 MG/DL Corrected Calcium 9.7 8.5-10.1 MG/DL Total Bilirubin 0.2 0.1-1.0 MG/DL Aspartate Amino Transf (AST/SGOT) 60 H 5-34 U/L Alanine Aminotransferase (ALT/SGPT) 39 0-55 U/L Alkaline Phosphatase 65 40-136 U/L C-Reactive Protein High Sensitivity 1.23 H 0.00-0.50 MG/DL Total Protein 8.0 6.4-8.2 GM/DL Albumin 4.3 3.2-4.5 GM/DL Lipase 51 8-78 U/L My Orders Orders - MAKAYLA HAWKINS Oxycodone/Apap 5/325mg Tablet (Percocet (10/15/19 18:15) Vital Signs/I&O 10/15/19 18:09 Temp 36.6 Pulse 86 Resp 18 B/P (MAP) 139/93 (108) Pulse Ox 98 O2 Delivery Room Air Progress Progress Note #1: Time: 18:07 Progress Note We'll check basic labs for infection inflammation but this is likely just a soft tissue pain from the mesh being pulled on with strenuous lifting. Conservative care was counseled. The patient has some anxiety about the pain and we will also provide some pain control. Progress Note #2: Time: 18:49 Progress Note Pain is modestly improved with Percocet. We'll give her a prescription for some Percocet. We explained to her that likely related to the mesh causing some soft tissue tearing and should improve in a week or 2. We have explained some conservative management techniques. We have also explained to her we cannot palpate any evidence of recurrent hernia at this time. She has been having bowel movements regularly and we have encouraged her to use stool softeners to decrease her straining. She has a follow-up appointment on [address] Roman and we'll encourage her to follow up then because by that time she should be seeing some significant changes. Departure Impression Primary Impression: Abdominal wall pain in left flank Disposition: 01 HOME, SELF-CARE Condition: Stable Departure-Patient Inst. Decision time for Depature: 18:50 Referrals: CARMEN GIBBS MD (PCP/Family) Primary Care Physician Patient Instructions: Acute Pain, Adult (DC) Add. Discharge Instructions: Your pain does not seem to be related to any kind of infectious or dangerous problem in the belly. It seems to be related to probably microscopic tearing of some of the scar tissue related to your surgical mesh. This is not dangerous and should resolve over a week or 2. Tylenol, Percocet 1-2 tablets every 6 hours as needed and judicious applications of heat, topical creams such as icy hot, Biofreeze, capsaicin oil will be helpful. Keep your follow-up appointment on [address] Roman. If you need more help with pain between now and then you can see your primary care doctor. If you begin to experience fever, inability to pass a bowel movement or other worrisome symptoms then please return to the ER. Continue to use stool softener such as Colace or you can use MiraLAX once or twice a day to stay regular soap that you're not having to strain. Scripts Oxycodone HCl/Acetaminophen (Percocet 5-325 mg Tablet) 1 Each Tablet 1 TAB PO Q6H PRN for PAIN-BREAKTHROUGH MDD 6 TABS for 7 Days, #20 TAB 0 Refills Prov: MAKAYLA HAWKINS 10/15/19 Copy Copies To 1: LINDSEY ROMAN TITUS J Oct 15, 2019 18:04
[2019-10-15 18:09] LABS: BASOPHILS % (AUTO) 0 % (0-10); EOSINOPHILS # (AUTO) 0.2 10^3/uL (0.0-0.3); EOSINOPHILS % (AUTO) 3 % (0-10); HEMATOCRIT 40 % (35-52); LYMPHOCYTES # (AUTO) 2.7 X 10^3 (1.0-4.0); LYMPHOCYTES % (AUTO) 31 % (12-44); MEAN CORPUSCULAR HEMOGLOBIN 27 PG (25-34); MEAN CORPUSCULAR HGB CONC 33 G/DL (32-36); MEAN CORPUSCULAR VOLUME 82 FL (80-99); MEAN PLATELET VOLUME 9.3 FL (7.4-10.4); MONOCYTES # (AUTO) 0.4 X 10^3 (0.0-1.0); MONOCYTES % (AUTO) 5 % (0-12); NEUTROPHILS # (AUTO) 5.4 X 10^3 (1.8-7.8); NEUTROPHILS % (AUTO) 62 % (42-75); PLATELET COUNT 260 10^3/uL (130-400); RED CELL DISTRIBUTION WIDTH 15.4 % (10.0-14.5); WHITE BLOOD COUNT 8.7 10^3/uL (4.3-11.0)
[2019-10-15 18:11] LABS: BILIRUBIN,URINE NEGATIVE (NEGATIVE); CLARITY,URINE CLEAR; COLOR,URINE YELLOW; GLUCOSE, URINE (UA) NEGATIVE (NEGATIVE); KETONES,URINE NEGATIVE (NEGATIVE); LEUKOCYTE ESTERASE ,URINE NEGATIVE (NEGATIVE); NITRITE,URINE NEGATIVE (NEGATIVE); PH,URINE 5.5 (5-9); PROTEIN,URINE NEGATIVE (NEGATIVE)
[2019-10-15] MEDS ORDERED: oxyCODONE/APAP 5/325MG (PERCOCET 5) TABLET PO ONE (18:15)
[2019-10-15 18:27] LABS: ALANINE AMINOTRANSFERASE 39 U/L (0-55); ALBUMIN 4.3 GM/DL (3.2-4.5); ALKALINE PHOSPHATASE 65 U/L (40-136); BILIRUBIN,TOTAL 0.2 MG/DL (0.1-1.0); BUN/CREATININE RATIO 17; CALCIUM 9.9 MG/DL (8.5-10.1); CARBON DIOXIDE 25 MMOL/L (21-32); CHLORIDE 105 MMOL/L (98-107); CREATININE SERUM 0.96 MG/DL (0.60-1.30); GFR ESTIMATED > 60; GLUCOSE 91 MG/DL (70-105); LIPASE 51 U/L (8-78); POTASSIUM 4.4 MMOL/L (3.6-5.0); SODIUM 142 MMOL/L (135-145)
[2019-10-15 18:32] LABS: BACTERIA,URINE MODERATE /HPF
[2019-10-15 18:37] LABS: RBC,URINE 0-2 /HPF
[2019-10-15 18:39] LABS: AMORPHOUS SEDIMENT,UR FEW AMOR URATES /LPF
[2019-10-15] MEDS ORDERED: OXYC1TAB87 PO (18:53)
[2019-10-15 19:00] VITALS: BP 139/93
== END 2019-10-15 19:01 | disposition home or self-care (01) ==
LOC: EDUNIT# 17:44 → ER 17:45
DX: R10.9 Unspecified abdominal pain (principal); F32.9 Major depressive disorder, single episode, unspecified; F17.210 Nicotine dependence, cigarettes, uncomplicated; Z88.5 Allergy status to narcotic agent; Z88.0 Allergy status to penicillin; Z88.1 Allergy status to other antibiotic agents; Z79.52 Long term (current) use of systemic steroids; Z85.528 Personal history of other malignant neoplasm of kidney; Z82.49 Family history of ischemic heart disease and other diseases of the circulatory system
CPT/HCPCS: 36415; 80053; 81000; 83690; 85025; 86141; 87088

== ENCOUNTER 2019-10-17 04:56 | Emergency (ER) | payer MEDICARE, MEDICAID ==
[~2019-10-17] VITALS: Ht 157 cm; Wt 118.0 kg
--- OUTSIDE RECORDS SUMMARY | 2019-10-17 05:03 | XMS REPORT | Encounter Summary ---
Author Author [facility] Address Unknown Phone Unavailable Care Team Providers Care Services Rep Name Role Phone Michael Sutton MD Unavailable Unavailable Mary Whittington MD PCP Jessica Valera APRN-TURKEY ROLL MAKER Unavailable Maggie Puente Unavailable Unavailable Mary Telles STAMP PRESSER Unavailable [phone] Bam Ritter MD Unavailable Unavailable Radha Bo LPN Unavailable Unavailable Jose Sanchez MD Unavailable Reason for Visit * Reason Comments Results Labs and ABD AP- abnormal Encounter Details Care Team Description Date Type Department Jessica Valera STAMP PRESSER-TURKEY ROLL MAKER [address] [facility] [address] [place] [address] Results (Labs and ABD AP- abnormal) 07/03/2019 Telephone [facility] [address] [place] [address] Social History Date Tobacco Use [...] encounter Miscellaneous Notes * Addendum Note - Cathy Dockery RN - 07/03/2019 12:14 PM TIRE MOLD ENGRAVER Addended by: CATHY DOCKERY on: 07/03/2019 12:14 PM Modules accepted: Orders MOLD ENGRAVER * Telephone Encounter - Cathy Dockery RN - 07/03/2019 12:02 PM TIRE MOLD ENGRAVER LVM and Mychart message for pt. LV was not detailed, just mentioned labs and abd ap results to discuss. Orders for Linzess put in. Left call back extension for pt to return call. Pt returned call, relayed all the result notes to the patient. No further questi ons at this time MOLD ENGRAVER * Telephone Encounter - Cathy Dockery RN - 07/03/2019 12:01 PM TIRE MOLD ENGRAVER ----- Message from PATI Negron sent at 07/03/2019 11:41 AM TIRE MOLD ENGRAVER ----- Call pt. Negative blood work for Celiac. Iron studies show iron deficiency. Is she taking po iron? If not, have her start ferrous gluconate 325 mg OTC, 1 po daily, take with VIt C pill or OJ. Have her PCP repeat iron studies in 2-3 months. Inflammatory markers a bit elevated. She can see if the provider in [facility] nts to do a colonoscopy at the time of the EGD to see if any inflammation in the colon causing this mild elevation. A few LFTs slightly elevated, can follow up with PCP to monitor. MOLD ENGRAVER documented in this encounter Plan of Treatment Not on filedocumented as of this encounter Visit Diagnoses Diagnosis Constipation, unspecified constipation type documented in this encounter
--- OUTSIDE RECORDS SUMMARY | 2019-10-17 05:03 | XMS REPORT | Encounter Summary ---
Author Author [facility] Organization [facility] Address Unknown Phone Unavailable Care Team Providers Care Bottom Stainer Name Role Phone Michael Sutton MD Unavailable Unavailable Mary Whittington MD PCP IdJessica weaver RETAIL SOLAR ADVISOR-DISABILITY REPRESENTATIVE Unavailable Maggie Puente Unavailable Unavailable Mary Telles RETAIL SOLAR ADVISOR Unavailable [phone] Bam Ritter MD Unavailable Unavailable Radha Bo LPN Unavailable Unavailable Jose Sanchez MD Unavailable Encounter Details Care Team Description Date Type Department Jessica Valera, RETAIL SOLAR ADVISOR-DISABILITY REPRESENTATIVE [address] [facility] [address] [place] [address] [phone] 06/29/2019 [facility] [address] [facility] [address] [place] [address] Social History Date Tobacco Use Types Packs/Day [...] DAILY. PLACE vomiting ON TONGUE TO DISSOLVE. 06/29/[address] Take one 30 tablet 5 (PROTONIX) 40 mg tablet by tabletIndications: mouth daily. Epigastric abdominal pain, Nausea and vomiting, intractability of vomiting not specified, unspecified vomiting type 06/29/2019 pregabalin (LYRICA) 25 mg Take one 60 capsule 3 capsuleIndications: capsule by Chronic pancreatitis, mouth twice unspecified pancreatitis daily. type (HCC), Epigastric abdominal pain rOPINIRole (REQUIP) 4 mg Take 4 mg by 0 tablet mouth at bedtime daily. 05/13/2018 sertraline (ZOLOFT) 50 mg Daily 0 tablet 05/21/2019 10/05/2019 cyanocobalamin (RUBRAMIN) INJECT 1 ML 1 mL 3 1,000 mcg/mL (CC) injectionIndications: INTRAMUSCULAR Medication monitoring LY EVERY 30 encounter DAYS documented as of this encounter Plan of Treatment Not on filedocumented as of this encounter Procedures Comments Procedure Name Priority Date/Time Associated Diag nosis ABDOMEN AP ONLY Routine 06/29/2019 Chronic pancre atitis, 4:28 PM HUMANE OFFICER unspecified pancreatitis type (HCC) Constipation, unspecified constipation type Epigastric abdominal pain Nausea and vomiting, intractability of vomiting not specified, unspecified vomiting type documented in this encounter Results * ABDOMEN AP ONLY (06/29/2019 4:28 PM HUMANE OFFICER) Specimen Impressions Performed At 1. Moderate retained colonic fecal load. [facility] 2. Nonobstructive bowel gas pattern. By my electronic signature, I attest th at I have personally reviewed the images for this examination and formulated the interpretations and opinions expressed in this report Finalized by Omi Walker D.O. on 2019 4:41 PM. Dictated by Issa Pimentel D.O. on 06/29/2019 4:34 PM. Narrative Performed At Procedure: ABDOMEN AP ONLY [facility] Clinical Indication: Evaluate for retai kamila stool. Constipation. Comparison: CT chest abdomen dated 05/19 FINDINGS: Three supine AP views of the abdomen we re submitted for interpretation. Surgical clips overlie the right upper quadrant and right hemipelvis. Radiopaque suture material overlies the left hemiabdomen. Punctate opacities overlie the body of the stomach, likely representing ingest ed material. Non-obstructive bowel gas pattern. Moderate retained colonic feca l load. Procedure Note Interface, Radiant Results - 06/29/2019 4:44 PM HUMANE OFFICER Procedure: ABDOMEN AP ONLY Clinical Indication: Evaluate for retained stool. Constipation. Comparison: CT chest abdomen dated 05/19/2018 FINDINGS: Three supine AP views of the abdomen were submitted for interpretation. Surgical clips overlie the right upper quadrant and right hemipelvis. Radiopaque suture material overlies the left hemiabdomen. Punctate opacities overlie the body of the stomach, likely representing ingested material. Non-obstructive bowel gas pattern. Moderate retained colonic fecal load. IMPRESSION 1. Moderate retained colonic fecal load. 2. Nonobstructive bowel gas pattern. By my electronic signature, I attest that I have personally reviewed the images for this examination and formulated the interpretations and opinions expressed in this report Finalized by Omi Walker D.O. on 06/29/2019 4:41 PM. Dictated by Issa Pimentel D.O. on 06/29/2019 4:34 PM. Performing Organization Address City/State/Zipcode Ph one Number [facility] documented in this encounter Visit Diagnoses Diagnosis Chronic pancreatitis, unspecified pancr eatitis type (HCC) Constipation, unspecified constipation type Epigastric abdominal pain Abdominal pain, epigastric Nausea and vomiting, intractability of vomiting not specified, unspecified vomiting type documented in this encounter
--- OUTSIDE RECORDS SUMMARY | 2019-10-17 05:03 | XMS REPORT | Encounter Summary ---
Author Author [facility] Organization [facility] Address Unknown Phone Unavailable Care Team Providers Care Courtesy Driver Name Role Phone Michael Sutton MD Unavailable Unavailable Mary Whittington MD PCP Jessica Valera COMMUNICATIONS COORDINATOR-UTILITIES SERVICE INVESTIGATOR Unavailable Maggie Puente Unavailable Unavailable RobertMary Deutsch COMMUNICATIONS COORDINATOR Unavailable [phone] Bam Ritter MD Unavailable Unavailable Radha Bo DATA RECOVERY PLANNER Unavailable Unavailable Jose Sanchez MD Unavailable Reason for Visit * Reason Comments Abdominal pain Abdominal Distention Encounter Details Care Team Description Date Type Department Randy Nunez MD [address] [facility] [address] [place] [address] Constipation, unspecified constipation t ype (Primary Dx); Nausea and vomiting, intractability of vomiting not specified, unspecified vomiting type; Chronic pancreatitis, unspecified pancreatitis type (HCC) 09/30/2019 Office Visit [facility] [address] [place] [address] Social History Date Tobacco Use [...] Signs Reading Time Taken Comments Vital Sign - - Blood Pressure - - Pulse - - Temperature - - Respiratory Rate - - Oxygen Saturation - - Inhaled Oxygen Concentration 120.2 kg (265 lb) 09/30/2019 10:46 AM CDT Weight 160 cm (5' 2.99") 09/30/2019 10:46 AM CDT Height 46.95 09/30/2019 10:46 AM CDT Body Mass Index documented in this encounter Functional Status Date of Assessment Functional Status Response 09/30/2019 Does the patient have a hearing impairment: No 09/30/2019 Does the patient have a visual impairment: No 09/30/2019 Does the patient have impaired ambulation: No 09/30/2019 Does the patient have an activity of daily living No (ADL) impairment: 09/30/2019 Does the patient have an instrumental activity of No daily living (IADL) impairment: Date of Assessment Cognitive Status Response 09/30/2019 Does the patient have a cognitive impairment: No documented as of this encounter Patient Instructions * Patient Instructions* Randy Nunez MD - 09/30/2019 11:00 AM CDT Call my nurse at [phone] if you have any troubles or questions. As my practice now involves more inpatient GI care my outpatient schedule is mtz ited. Follow up visits and more urgent GI care may need to be performed with my nurse practitioner Jessica Valera. Additionally, you may need to follow some GI is sues with your primary care physician. Any signs of bleeding go to the local ER. documented in this encounter Progress Notes * Randy Nunez MD - 09/30/2019 11:00 AM CDT Telehealth Visit Note Date of Service: 09/30/2019 Subjective: Obtained patient's verbal consent to treat them and their agreement to [facility] policy and NPP via this telehealth visit during the Coronavirus Public [facility] Emergency Janeth Rajput is a 34 y.o. female. History of Present Illness Janeth last saw Jessica Valera on 06/29/2019. She is a very pleasant 34-year-old [place] ucasian female who is an established patient of Dr. Nunez, last seen by him in 03/2018. She has a complex medical history. Briefly, she has a history of id iopathic chronic pancreatitis and underwent recent repeat endoscopic ultrasound on 01/31/2018 and MRCP on 02/19/2018. This confirmed chronic pancreatitis as w ell as pancreas divisum. She has a long-standing history of upper abdominal pa in as well as episodes of nausea and vomiting Which did not seem to improve with Phenergan, scopolamine patch, or higher than prescribed doses of Zofran. Normal 4-hour gastric emptying test in 2009 and 2013 . She had an extensive lab work-up in 05/2017 which was unremarkable including a normal a.m. cortisol. Her most recent colonoscopy was performed by Dr. Daniel in [facility] on 07/03/2017 which showed grade 2 internal hemorrhoids and ext ernal hemorrhoids, no polyps seen. She also has a history of renal cell cancer, underwent left nephrectomy in March 2017 and since then has also had incisiona l hernia repair with mesh X 2, 08/2017 and 08/2018. She reports a SBO before surge ry in 08/2018. She had C. diff in 11/2017 treated in [place], [place] and also follow s with [facility] in [place], [place] who are also monitoring a pu lmonary nodule in her LL lobe and a possible liver lesion. At the 03/2018 offic e visit, Dr. Nunez recommended her discontinue Zofran and try Compazine 5 mg as needed and start a trial of omeprazole 40 mg daily to see if helpful. She w as also advised to continue Viokase with meals and return to clinic in 3 months. Since she last saw Hillary she seems to be doing better. She still has episodes o f nausea that occur randomly during the week particularly if she overeats. She typically tries to eat about 2 meals per day. She has occasional nonbloody vomi ting. Abdominal pain seems to be reasonably well controlled. She will take Tyl enol or hydrocodone. She avoids nonsteroidal anti-inflammatory medications. She denies any heartburn. It was recommended that she take Protonix but she is not taking this. She was given Linzess to use for constipation but she is only taking this on an as-needed basis. She states that she typically will have a melia wel movement after she eats although it can be small amount. She is not taking any pancreas enzyme replacement. She denies any stool charact eristics to suggest steatorrhea. Appetite is good by her report and her weight is stable by her report. She continues to follow closely with [facility], in [facility] a. She has plans to follow-up regarding her renal cell cancer and now some conc erns about her thyroid. EUS 08/22/2018: Pancreas with features of chronic pancreatitis in form of lobulation, hyperechoi c foci, and stranding. Evidence of pancreas divisum. Dorsal duct was 1.6 mm. Pancreatic duct in the body 1.7 mm. Ventral pancreatic duct could not be seen. CBD measured 3.8 mm. No evidence of mass in the pancreas. MRCP 02/19/18: 1. Pancreas divisum. No significant pancreatic ductal dilatation. 2. Previous cholecystectomy. No significant biliary ductal dilatation or choledo cholithiasis. 3. Previous left nephrectomy. Unchanged small linear soft tissue thickening in t he left renal fossa most compatible scarring. 4. Hepatosplenomegaly with diffuse hepatic steatosis. Past medical history: 1. Changes of chronic pancreatitis on past endoscopic ultrasound. Most recent EU S - 01/31/2018 withconfirmed chronic pancreatitis, pancreas divisum. 2. 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, status post total abdominal hysterectomy and oophorectomy in [facility] 2012. 3. Status post cholecystectomy (2006). 4. History of depression. 5. Significant weight gain. 6. Left nephrectomy (renal cell cancer) 03/2017.Now with LLL nodule. 7. GET 07/15/13 normal. 8. MRI head 07/15/13 normal. 9. C difficile diarrhea 12/12/2017 (Flagyl). 10. Incisional hernia repair with mesh 08/22/2017. 11. Staph infection December 2017 (Vancomycin, Zyvox). Family history:paternal great uncle pancreatic cancer; maternal grandfather "a bdominal tumor"; mother with colon polyps; paternal great uncle colon cancer. Social history:no alcohol or tobacco use. Review of Systems Constitutional: Positive for appetite change, chills and fatigue. HENT: Positive for sneezing. Eyes: Positive for itching. Respiratory: Positive for shortness of breath. Cardiovascular: Negative. Gastrointestinal: Positive for abdominal distention, abdominal pain, anal bleedi ng, constipation, diarrhea, nausea and vomiting. Endocrine: Negative. Genitourinary: Positive for decreased urine volume. Musculoskeletal: Positive for arthralgias, back pain, myalgias and neck pain. Skin: Negative. Allergic/Immunologic: Negative. Neurological: Positive for dizziness, weakness, light-headedness, numbness and h eadaches. Psychiatric/Behavioral: Positive for sleep disturbance. Objective: acetaminophen (TYLENOL) 500 mg tablet Take 1,000 mg by mouth every 6 hours a s needed for Pain (patient does not take more than four per day). Max of 4,000 m g of acetaminophen in 24 hours. cyanocobalamin (RUBRAMIN) 1,000 mcg/mL injection INJECT 1 ML (CC) INTRAMUSCU LARLY EVERY 30 DAYS cyanocobalamin (VITAMIN B-12, RUBRAMIN) 1,000 mcg/mL injection INJECT 1 ML I NTRAMUSCULARLY EVERY 30 DAYS. cyclobenzaprine (FLEXERIL) 10 mg tablet Every 8HRS diphenhydrAMINE (BENADRYL ALLERGY) 25 mg tablet Take 50 mg by mouth every 6 hours as needed. ergocalciferol (vitamin D2) (VITAMIN D PO) Take by mouth. estradiol (ESTRACE) 2 mg tablet Take 3 mg by mouth at bedtime daily. ferrous sulfate (IRON PO) Take by mouth. gabapentin (NEURONTIN) 100 mg capsule Take 100 mg by mouth every 8 hours. HYDROcodone/acetaminophen (NORCO) 7.5/325 mg tablet Take 1 tablet by mouth e very 6 hours as needed for Pain Indications: PAIN linaclotide (LINZESS) 290 mcg capsule Take one capsule by mouth daily 30 min utes before breakfast. omeprazole DR(+) (PRILOSEC) 40 mg capsule Take one capsule by mouth daily be fore breakfast. ondansetron (ZOFRAN ODT) 8 mg rapid dissolve tablet DISSOLVE 1 TABLET IN [place] TH TWICE DAILY. PLACE ON TONGUE TO DISSOLVE. pantoprazole DR (PROTONIX) 40 mg tablet Take one tablet by mouth daily. pregabalin (LYRICA) 25 mg capsule Take one capsule by mouth twice daily. rOPINIRole (REQUIP) 4 mg tablet Take 4 mg by mouth at bedtime daily. sertraline (ZOLOFT) 50 mg tablet Daily Vitals: 09/30/19 1046 Weight: 120.2 kg (265 lb) Height: 160 cm (62.99") PainSc: Five Body mass index is 46.95 kg/m. Physical Exam Vitals signs reviewed. Constitutional: Appearance: Normal appearance. HENT: Head: Normocephalic and atraumatic. Neurological: Mental Status: She is alert. Psychiatric: Mood and Affect: Mood normal. Behavior: Behavior normal. Thought Content: Thought content normal. Judgment: Judgment normal. Assessment and Plan: 1. Melena, on oral iron. 2. Chronic nausea with intermittent vomiting, no hematemesis. Normal 4-hour ga stric emptying test in 2009 and 2013. Normal a.m. cortisol in 2016. Normal MRI head 2013. Symptoms failed to improve on Phenergan, Compazine, and scopolamine p atch. Minimal improvement with high-dose Zofran. 3. Chronic pancreatitis with pancreas divisum, per EUS 01/2017, confirmed again with EUS 08/2018. Has chronic epigastric pain for years, since first episode of pancreatitis. Not postprandial. No diarrhea or steatorrhea. Not currently on pancreatic enzymes. Has been on Viokase in the past although this did not seem helpful for her chronic epigastric pain. 4. Constipation. Longstanding history, reportedly does not improve with stool softeners, MiraLAX, or suppositories. Currently taking Ex-Lax 3 tablets daily a s needed with minimal improvement. Although stool soft or liquid, often feels l octavio bowel movements incomplete. 5. History of colon polyps, normal colonoscopy by outside provider 06/2017. 6. Status post left radical nephrectomy for renal cell cancer in 03/2017. Derek mccoy with [facility]. Scheduled for follow-up with them santiago negrete this week who is also following her for reports of left lower lobe pulmonary nodule. 7. History of incisional hernia repair with mesh 08/2017 and 08/2018. Reports SB O prior to repeat hernia surgery. 8. History of C. difficile, 11/2017. Overall she seems to be doing pretty well. She is still noting dark black stool s. I discussed signs and symptoms that would warrant evaluation in the emergenc y room as her scopes have been postponed due to coronavirus. At the present time a recommend the followin. Continue to avoid NSAIDs. 2. Zofran 8 mg 3 times a day as needed for nausea. 3. We discussed gastro-paretic type diet although she seems to only eat about 2 meals per day. 4. She is not having any heartburn and therefore she is no longer taking pantop razole but she could take this if she starts developing symptoms. 5. She is going to have EGD and colonoscopy locally in [place] under the dire ction of the surgeon. 6. Continue oncology follow-up in [place] as scheduled. 7. Follow-up in 3 months or sooner if need be. I have asked her to contact us with any troubles in the interim. I spent 25 minutes with the patient in a lvyn-mo-arln manner today, over 50% of the time was spent counseling and coordinating care. documented in this encounter Plan of Treatment Not on filedocumented as of this encounter Visit Diagnoses Diagnosis Constipation, unspecified constipation type Nausea and vomiting, intractability of vomiting not specified, unspecified vomiting type Chronic pancreatitis, unspecified pancr eatitis type (HCC) documented in this encounter
--- OUTSIDE RECORDS SUMMARY | 2019-10-17 05:03 | XMS REPORT | Clinical Summary ---
Author Author [facility] Organization [facility] Address Unknown Phone Unavailable Care Team Providers Care Lane Marker Installer Name Role Phone Michael Sutton MD Unavailable Unavailable Mary Whittington MD PCP ArJessica weaver LEAD RUBY ON RAILS DEVELOPER-BOOKING PRIZER Unavailable Maggie Puente Unavailable Unavailable Mary Telles LEAD RUBY ON RAILS DEVELOPER Unavailable [phone] Bam Ritter MD Unavailable Unavailable Radha Bo STRIPPING CUTTER AND WINDER Unavailable Unavailable Jose Sanchez MD Unavailable Source Comments Some departments are not documenting in the electronic medical record. If you d o not see the information that you expected, contact Release of Information in [facility] Health Information Management department at [phone] for further assistan ce in locating additional records.[facility] Allergies Comments Active Allergy Reactions Severity Noted [...] mg of acetaminophen in 24 hours. Active cyanocobalamin (VITAMIN INJECT 1 ML 1 [...] by 9 mouth daily before breakfast. Active pantoprazole DR Take one 30 tablet 5 (PROTONIX) 40 mg tablet by 0 tabletIndications: mouth daily. Epigastric abdominal pain, Nausea and vomiting, intractability of vomiting not specified, unspecified vomiting type Active pregabalin (LYRICA) 25 mg Take one 60 capsule 3 capsuleIndications: capsule by 0 Chronic pancreatitis, mouth twice unspecified pancreatitis daily. type (HCC), Epigastric abdominal pain Active linaclotide (LINZESS) 290 Take one 30 capsule 5 mcg capsuleIndications: capsule by 0 Constipation, unspecified mouth daily constipation type 30 minutes before breakfast. Active ferrous sulfate (IRON PO) Take by 0 mouth. Active ergocalciferol (vitamin Take by 0 D2) (VITAMIN D PO) mouth. 01/03/2020 Active cyanocobalamin (RUBRAMIN) Inject 1 mL 3 mL 3 1,000 mcg/mL into the 0 injectionIndications: muscle every Medication monitoring 30 days for encounter 90 days. 10/05/2019 Discontinued (Reorder) cyanocobalamin (RUBRAMIN) INJECT 1 ML 1 mL 3 1,000 mcg/mL (CC) 9 injectionIndications: INTRAMUSCULAR Medication monitoring LY EVERY 30 encounter DAYS Active Problems Problem Noted Date Other chronic pancreatitis 01/14/2018 Overview: Added automatically from request for [facility] [id number] Intractable vomiting with nausea 01/14/2018 Overview: Added automatically from request for [facility] [id number] Left renal mass 04/10/2017 Renal mass 03/21/2017 Overview: Added automatically from request for [facility] [id number] 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 06/24/2013 Overview: S/P HOLLAND, BSO 11/27 Depression 06/24/2013 S/P cholecystectomy 06/24/2013 Overview: 2007 S/P appendectomy 06/24/2013 Overview: November 2012 Pancreatitis 10/23/2011 Encounters Care Team Description Date Type Specialty Randy Nunez MD Medication monitoring encounter 10/05/2019 Refill Gastroenterology Randy Nunez MD Constipation, unspecified constipation t ype (Primary Dx); Nausea and vomiting, intractability of vomiting not specified, unspecified vomiting type; Chronic pancreatitis, unspecified pancreatitis type (HCC) 09/30/2019 Office Visit Gastroenterology Randy Nunez MD Test 07/28/2019 Telephone Gastroenterology from Last 3 Months Family [...] Signs Reading Time Taken Comments Vital Sign 118/63 06/29/2019 2:17 PM WEBSITE DEVELOPER Blood Pressure 87 06/29/2019 2:17 PM WEBSITE DEVELOPER Pulse 36.6 C (97.9 F) 06/29/2019 2:17 PM WEBSITE DEVELOPER Temperature 18 05/19/2018 1:06 PM WEBSITE DEVELOPER Respiratory Rate 96% 08/22/2018 8:53 AM WEBSITE DEVELOPER Oxygen Saturation - - Inhaled Oxygen Concentration 120.2 kg (265 lb) 09/30/2019 10:46 AM CDT Weight 160 cm (5' 2.99") 09/30/2019 10:46 AM CDT Height 46.95 09/30/2019 10:46 AM CDT Body Mass Index Plan of Treatment Health Maintenance Due Date Last Done Comments MEDICARE ANNUAL WELLNESS 1984 VISIT HIV SCREENING 1999 DTAP/TDAP VACCINES (1 - 2002 Tdap) HEPATITIS C SCREENING 2002 PHYSICAL (COMPREHENSIVE) 2002 EXAM CERVICAL CANCER SCREENING 2005 INFLUENZA VACCINE 03/17/2020 06/03/2018 Results Not on filefrom Last 3 Months Insurance Type Payer Benefit Subscriber ID Effective Phone Address Plan / Dates Group Medicare MEDICARE MEDICARE xxxxxxxxxxx 2011- PART A AND Present B Medicaid [place] [employer] xxxxxxxxxxx 2019-P [facility] [phone] Advance Directives Patient Slp Teacher Explanation Type Date Recorded Advance 04/10/2017 8:47 AM Directive/DPOA Date Inactivated Comments Code Status Date Activated 04/11/2017 4:57 PM Full Code 04/10/2017 5:31 PM Provider has discussed Code Status No, discussion no t w/Patient or Family? necessary based on Dx
--- OUTSIDE RECORDS SUMMARY | 2019-10-17 05:03 | XMS REPORT | Encounter Summary ---
Author Author [facility] Organization [facility] Address Unknown Phone Unavailable Care Team Providers Care Funeral Home Location Manager Name Role Phone Michael Sutton MD Unavailable Unavailable Mary Whittington MD PCP Jessica Valera BASEBALL COACH-PHLEBOTOMY MANAGER Unavailable Maggie Puente Unavailable Unavailable Mary Telles BASEBALL COACH Unavailable [phone] Bam Ritter MD Unavailable Unavailable Radha Bo LPN Unavailable Unavailable Jose Sanchez MD Unavailable Encounter Details Care Team Description Date Type Department Jessica Valera, BASEBALL COACH-PHLEBOTOMY MANAGER [address] [facility] [address] [place] [address] [phone] 06/29/2019 [facility] [address] [facility] [address] [place] [address] Social History Date Tobacco Use Types Packs/Day [...] Procedure Name Priority Date/Time Associated Diag nosis HC CELIAC SCREEN Routine 06/29/2019 Chronic pancr eatitis, 4:01 PM BLOCK TESTER unspecified pancreatitis type (HCC) Epigastric abdominal pain Nausea and vomiting, intractability of vomiting not specified, unspecified vomiting type HC GLIADIN DEAMIDATED IGA Routine 06/29/2019 Crude Oil Treater carlos pancreatitis, 4:01 PM BLOCK TESTER unspecified pancreatitis type (HCC) Epigastric abdominal pain Nausea and vomiting, intractability of vomiting not specified, unspecified vomiting type HC IRON BINDING CAPACITY Routine 06/29/2019 Chron ic pancreatitis, + %SAT 4:01 PM BLOCK TESTER unspecified pancrea titis type (HCC) Epigastric abdominal pain Nausea and vomiting, intractability of vomiting not specified, unspecified vomiting type Melena HC SED RATE; MANUAL Routine 06/29/2019 Chronic pa ncreatitis, 4:01 PM BLOCK TESTER unspecified pancreatitis type (HCC) Epigastric abdominal pain Nausea and vomiting, intractability of vomiting not specified, unspecified vomiting type HC CBC,AUTOMATED Routine 06/29/2019 Chronic pancr eatitis, 4:01 PM BLOCK TESTER unspecified pancreatitis type (HCC) Epigastric abdominal pain Melena Nausea and vomiting, intractability of vomiting not specified, unspecified vomiting type HC C-REACTIVE PROTEIN Routine 06/29/2019 Chronic pancreatitis, (CRP) 4:01 PM BLOCK TESTER unspecified pancrea titis type (HCC) Epigastric abdominal pain Nausea and vomiting, intractability of vomiting not specified, unspecified vomiting type HC COMPREHENSIVE Routine 06/29/2019 Chronic pancr eatitis, METABOLIC PANEL 4:01 PM BLOCK TESTER unspecified pancrea titis type (HCC) Epigastric abdominal pain Nausea and vomiting, intractability of vomiting not specified, unspecified vomiting type documented in this encounter Results * CBC (06/29/2019 4:01 PM BLOCK TESTER) White Blood 7.5 4.5 - 11.0 K/UL [facility] Cells RBC 4.93 4.0 - 5.0 M/UL [facility] Hemoglobin 12.6 12.0 - 15.0 GM/DL [facility] Hematocrit 39.5 36 - 45 % [facility] MCV 80.1 80 - 100 FL [facility] MCH 25.7 (L) 26 - 34 PG [facility] MCHC 32.0 32.0 - 36.0 G/DL [facility] RDW 14.8 11 - 15 % [facility] Platelet Count 269 150 - 400 K/UL [facility] MPV 7.8 7 - 11 FL [facility] Specimen Blood Performing Organization Address City/State/Zipcode Ph one Number MAIN LAB [address] [place] [address] * COMPREHENSIVE METABOLIC PANEL (06/29/2019 4:01 PM BLOCK TESTER) Pathologist [facility] Sodium 143 137 - 147 MMOL/L [facility] Potassium 3.9 3.5 - 5.1 MMOL/L [facility] Chloride 104 98 - 110 MMOL/L [facility] Glucose 119 (H) 70 - 100 MG/DL [facility] Blood Urea 18 7 - 25 MG/DL [facility] Nitrogen Creatinine 0.99 0.4 - 1.00 MG/DL [facility] Calcium 10.0 8.5 - 10.6 MG/DL [facility] Total Protein 7.7 6.0 - 8.0 G/DL [facility] Total Bilirubin 0.2 (L) 0.3 - 1.2 MG/DL [facility] Albumin 4.3 3.5 - 5.0 G/DL [facility] Alk Phosphatase 62 25 - 110 U/L [facility] AST (SGOT) 42 (H) 7 - 40 U/L [facility] CO2 29 21 - 30 MMOL/L [facility] ALT (SGPT) 34 7 - 56 U/L [facility] Anion Gap 10 3 - 12 [facility] eGFR Non >60 >60 mL/min [facility] Comment: Vietnamese The eGFR is not validated f or use in drug dosing adjustments. Continue to use estimated creatinine clearance per dosing reference text. Please contact the Clinical Pharmacist for questions. eGFR >60 >60 mL/min [facility] Vietnamese Comment: The eGFR is not validated for use in drug dosing adjustments. Continue to use estimated creatinine clearance per dosing reference text. Please contact the Clinical Pharmacist for questions. Specimen Blood Performing Organization Address [facility] one Number MAIN LAB [address] [place] [address] * SED RATE (06/29/2019 4:01 PM BLOCK TESTER) Sed Rate -ESR 24 (H) 0 - 20 MM/HR [facility] Specimen Blood Performing Organization Address [facility] one Number MAIN LAB [address] [place] [address] * IRON + BINDING CAPACITY + %SAT+ FERRITIN (06/29/2019 4:01 PM BLOCK TESTER) Iron 40 (L) 50 - 160 MCG/DL [facility] Iron 550 (H) 270 - 380 MCG/DL [facility]IN [facility] Binding-TIBC % Saturation 7 (L) 28 - 42 % [facility] Ferritin 42 10 - 200 NG/ML [facility] Specimen Blood Performing Organization Address [facility] one Number MAIN LAB [address] [place] [address] * CELIAC SCREEN (06/29/2019 4:01 PM BLOCK TESTER) TTG IgA <0.5 <15 U/mL MAIN LAB Interpretation NORMAL [facility] Specimen Blood Performing Organization Address [facility] one Number MAIN LAB [address] [place] [address] * GLIADIN, DEAMIDATED IGA (06/29/2019 4:01 PM BLOCK TESTER) Gliadin IGA 2.7 <15 U/mL MAIN LAB Specimen Performing Organization Address [facility] one Number MAIN LAB [address] [place] [address] * C REACTIVE PROTEIN (CRP) (06/29/2019 4:01 PM BLOCK TESTER) C-Reactive 1.55 (H) <1.0 MG/DL MAIN LAB Protein Specimen Blood Performing Organization Address [facility] one Number MAIN LAB [address] [place] [address] documented in this encounter Visit Diagnoses Diagnosis Chronic pancreatitis, unspecified pancr eatitis type (HCC) Epigastric abdominal pain Abdominal pain, epigastric Nausea and vomiting, intractability of vomiting not specified, unspecified vomiting type Melena Blood in stool documented in this encounter
--- OUTSIDE RECORDS SUMMARY | 2019-10-17 05:03 | XMS REPORT | Encounter Summary ---
Author Author [facility] Organization [facility] Address Unknown Phone Unavailable Care Team Providers Care Aviation Technician Name Role Phone Michael Sutton MD Unavailable Unavailable Mary Whittington MD PCP Jessica Valera MANAGER SUPPLY-PHD INTERN Unavailable Maggie Puente Unavailable Unavailable Mary Telles MANAGER SUPPLY Unavailable [phone] Bam Ritter MD Unavailable Unavailable Radha Bo LPN Unavailable Unavailable Jose Sanchez MD Unavailable Reason for Visit * Reason Comments Medication Refill Encounter Details Care Team Description Date Type Department Randy Nunez MD [address] [facility] [place] [address] [place] [address] Medication monitoring encounter 10/05/2019 Refill [facility] [address] [place] [address] Social History Date Tobacco Use [...] impairment: No documented as of this encounter Plan of Treatment Not on filedocumented as of this encounter Visit Diagnoses Diagnosis Medication monitoring encounter Encounter for therapeutic drug monitori jannet documented in this encounter
--- OUTSIDE RECORDS SUMMARY | 2019-10-17 05:03 | XMS REPORT | Encounter Summary ---
Author Author [facility] Organization [facility] Address Unknown Phone Unavailable Care Team Providers Care Truck Service Manager Name Role Phone Michael Sutton MD Unavailable Unavailable Mary Whittington MD PCP Jessica Valera FLOOR REFINISHER-SALES AGENT PROTECTIVE SERVICE Unavailable Maggie Puente Unavailable Unavailable Mary Telles FLOOR REFINISHER Unavailable [phone] Bam Ritter MD Unavailable Unavailable Radha Bo SALSA DANCE INSTRUCTOR Unavailable Unavailable Jose Sanchez MD Unavailable Reason for Referral * Consult, Test & Treat (Routine) Referred By Contact Referred To Contact Status Reason Specialty Diagnoses / Procedures Randy Nunez MD [address] Orth[facility] [address] [place] [address] Glenn Sanchez DO [address] [place] [address] New Request Specialty Services Diagnoses Required Melena Gastroesophageal reflux disease without esophagitis Other constipation Reason for Visit * Reason Comments Test Encounter Details Care Team Description Date Type Department Randy Nunez MD [address] Orth[facility] [address] [place] [address] [phone] Test 07/28/2019 Telephone [facility] [address] [place] [address] Social History Date Tobacco Use [...] Telephone Encounter - Arleen Leone RN - 08/05/2019 9:02 AM MINE SHIFTER Follow-up call to Dr. Sanchez's office and spoke with [place]. Patient will have off ice consultation 08/20/2019 and then will schedule procedures after seen. SHIFTER * Telephone Encounter - Arleen Leone RN - 07/28/2019 2:[address] Sanchez, Surgeon Office in [place], [place] request for EGD/Colonoscopy order as referenced during recent appointment with Jessica Valera NP. Order entered and fa xed to [phone]. Call back number is [phone] Sanchez. SHIFTER documented in this encounter Plan of Treatment Order Schedule Name Type Priority Associated Diag noses Ordered: 07/28/2019 AMB REFERRAL TO GI LAB Outpatient Routine Melena FOR PROCEDURE Referral Gastroesophageal re flux disease without esophagitis Other constipation documented as of this encounter Visit Diagnoses Diagnosis Melena Blood in stool Gastroesophageal reflux disease without esophagitis Esophageal reflux Other constipation documented in this encounter
--- OUTSIDE RECORDS SUMMARY | 2019-10-17 05:04 | XMS REPORT | Encounter Summary ---
Author Author [facility] Organization [facility] Address Unknown Phone Unavailable Care Team Providers Care Nut Tapper Name Role Phone Michael Sutton MD Unavailable Unavailable Mary Whittington MD PCP Jessica Valera BULK TANK DRIVER-TECHNOLOGY LEAD Unavailable Maggie Puente Unavailable Unavailable Mary Telles BULK TANK DRIVER Unavailable [phone] Bam Ritter MD Unavailable Unavailable Radha Bo ENGINEERING PROGRAM MANAGER Unavailable Unavailable Jose Sanchez MD Unavailable Encounter Details Care Team Description Date Type Department Donald Amaya (Ko) MD [facility] [address] [place] [address] [phone] Right knee pain, unspecified chronicity (Primary Dx) 04/27/2019 Orders Only [facility] [id number] [facility] [address] [place] [address] Social History Date Tobacco Use Types Packs/Day [...] Procedure Name Priority Date/Time Associated Diag nosis KNEE 3 VIEWS RIGHT Routine 06/29/2019 Right knee pain, 9:47 AM DAIRY QUALITY ASSURANCE OFFICER unspecified chronicity documented in this encounter Results * KNEE 3 VIEWS RIGHT (06/29/2019 9:47 AM DAIRY QUALITY ASSURANCE OFFICER) Specimen Right Impressions Performed At Findings/impression: [facility] RES[facility] 1. A fracture or dislocation is not alon ntified. 2. Small osteophytes are present involv ing the right knee. Moderate medial compartment joint space narrowing is pr esent. 3. A joint effusion is not appreciated. 4. The left [facility]. Mild medial compartment joint space jodi rowing is present. Finalized by Deo Bassett M.D. on 10:11 AM. Dictated by Deo Bassett M.D. on 06/29/2019 10:07 AM. Narrative Performed At Right knee [facility] Clinic data: Right knee pain Three projections were acquired. No anusha or studies are available for comparison. Procedure Note Interface, Radiant Results - 06/29/2019 10:15 AM DAIRY QUALITY ASSURANCE OFFICER Right knee Clinic data: Right knee pain Three projections were acquired. No prior studies are available for comparison. IMPRESSION Findings/impression: 1. A fracture or dislocation is not iden tified. 2. Small osteophytes are present involvi ng the right knee. Moderate medial compartment joint space narrowing is present. 3. A joint effusion is not appreciated. 4. The left knee was [facility] on the [facility] projections. Mild medial compartment joint space narrowing is present. Finalized by Deo Bassett M.D. on 06/29/2019 10:11 AM. Dictated by Deo Bassett M.D. on 06/29/2019 10:07 AM. Performing Organization Address City/State/Zipcode Ph one Number [facility] RESULTS documented in this encounter Visit Diagnoses Diagnosis Right knee pain, unspecified chronicity documented in this encounter
--- OUTSIDE RECORDS SUMMARY | 2019-10-17 05:04 | XMS REPORT | Encounter Summary ---
Author Author [facility] Organization [facility] Address Unknown Phone Unavailable Care Team Providers Care Drain Cleaner Plumber Name Role Phone Michael Sutton MD Unavailable Unavailable Mary Whittington MD PCP Jessica Valera APRN-CREDIT COLLECTION SPECIALIST Unavailable Maggie Puente Unavailable Unavailable Mary Telles APRN Unavailable [phone] Bam Ritter MD Unavailable Unavailable Radha Bo LPN Unavailable Unavailable Jose Sanchez MD Unavailable Reason for Visit * Reason Comments Follow Up Nausea Vomiting Abdominal pain * (Routine) Referred By Contact Referred To Contact Status Reason Specialty Diagnoses / Procedures Jessica Valera APRN-NP [address] [facility] [address] [place] [address] Pending Review Encounter Details Care Team Description Date Type Department Jessica Valera APRN-NP [address] [facility] [address] [place] [address] [phone] Chronic pancreatitis, unspecified pancre atitis type (HCC) (Primary Dx); Constipation, unspecified constipation type; Epigastric abdominal pain; Melena; Nausea and vomiting, intractability of vomiting not specified, unspecified vomiting type; Chronic nausea; Pancreas divisum 06/29/2019 Office Visit [facility] [address] [place] [address] Social History Date Tobacco Use [...] Comments Vital Sign 118/63 06/29/2019 2:17 PM PRODUCTION TEAM MANAGER Blood Pressure 87 06/29/2019 2:17 PM PRODUCTION TEAM MANAGER Pulse 36.6 C (97.9 F) 06/29/2019 2:17 PM PRODUCTION TEAM MANAGER Temperature - - Respiratory Rate - - Oxygen Saturation - - Inhaled Oxygen Concentration 119 kg (262 lb 4.8 oz) 06/29/2019 2:17 PM PRODUCTION TEAM MANAGER Weight 160 cm (5' 3") 06/29/2019 2:17 PM PRODUCTION TEAM MANAGER per pt Height 46.46 06/29/2019 2:17 PM PRODUCTION TEAM MANAGER Body Mass Index documented in this encounter [...] impairment: Yes documented as of this encounter Patient Instructions * Patient Instructions* Jessica Valera ARNP - 06/29/2019 2:30 PM PRODUCTION TEAM MANAGER 1. Have blood work and the abdominal x-ray today. We will call you with results . 2. Even though you are not having heartburn I do want you taking pantoprazole 40 mg once a day, 30 minutes before breakfast. 3. Follow up in [place] to see if you can have an EGD/upper endoscopy. If not call me and we can order it. 4. Close follow up with Oncology in [place] as planned. 5. For the nausea continue Zofran up to 3 times a day. 6. For the middle abdominal pain try the Lyrica. Call in 3-4 weeks with a progre ss report. If you have any questions you can call my nurse David at [phone]. UCTION TEAM MANAGER documented in this encounter Progress Notes * Jessica Valera, KHOA - 06/29/2019 2:30 PM PRODUCTION TEAM MANAGER Date of Service: 06/29/2019 Subjective: Janeth Rajput is a 34 y.o. female. History of Present Illness Janeth is a very pleasant 34-year-old female who is an established pa tient of Dr. Nunez, last seen by him in 03/2018. She has a complex medical history. Briefly, she has a history of idiopathic chronic pancreatitis and under went recent repeat endoscopic ultrasound on 01/31/2018 and MRCP on 02/19/2018. This confirmed chronic pancreatitis as well as pancreas divisum. She has a long -standing history of upper abdominal pain as well as episodes of nausea and vomi ting Which did not seem to improve with Phenergan, scopolamine patch, or higher than prescribed doses of Zofran. Normal 4-hour gastric emptying test in 2009 and 2013 . She had an extensive lab work-up in 05/2017 which was unremarkable including a normal a.m. cortisol. Her most recent colonoscopy was performed by Dr. Daniel in [facility] on 07/03/2017 which showed grade 2 [...] had C. diff in 11/2017 treated in [place], [place] and also follow s with [facility] in [place], [place] who are also monitoring a pu [...] and return to clinic in 3 months. She presents today for a follow-up office visit. He has not been seen in the GI clinic since 03/2018. She continues to struggle with the same symptoms. She s tates her nausea is constant to intermittent despite Zofran 8 mg ODT, 2 tablets at a time. Compazine was not helpful. She is vomiting 1-2 times a day, sometime s undigested food. The vomiting can also occur on an empty stomach. She does t patrick a dose of hydrocodone every few weeks but nothing consistent. She is also n oted intermittent melena along with occasional bright red blood with wiping. Andrez bingham is not currently on any PPI. She does have early satiety along with the same chronic epigastric pain which is constant which is been going on since her first episode of acute pancreatitis years ago. Minimal GERD symptoms. She has a julissa gstanding history of constipation and takes Ex-Lax 3 tablets as needed. In the past, stool softeners, MiraLAX, and suppositories have not been helpful. Curren t bowel pattern is every day to up to 4 days without a bowel movement. The stoo ls can be often liquid or soft, sometimes incomplete and require straining. No steatorrhea. She continues to have left-sided abdominal pain which is been laura g on since her hernia repair/mesh placement. She has intermittent dysphagia whi ch is ongoing and unchanged, typically with solids. No hematic emesis. Appetit e varies, weight is stable. No recent lab work. She continues to follow closely with [facility] in [place]. She has plans to follow-up regarding her renal cell canc er and now some concerns about her thyroid later this week. EUS 08/22/2018: Pancreas with features of chronic [...] ultrasound. Most recent EU S - 01/31/2018 with confirmed chronic pancreatitis, pancreas divisum. 2. 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, status post total abdominal hysterectomy [facility]oph[facility]. 3. Status post cholecystectomy (2006). 4. [...] Systems Constitutional: Positive for activity change, appetite change, diaphoresis and f atigue. Negative for chills, fever and unexpected weight change. HENT: Positive for rhinorrhea, sneezing, sore throat and tinnitus. Negative for mouth sores, trouble swallowing and voice change. Eyes: Negative for pain and visual disturbance. Respiratory: Positive for shortness of breath and wheezing. Negative for choking and chest tightness. Cardiovascular: Positive for leg swelling. Negative for chest pain. Gastrointestinal: Positive for abdominal pain, constipation, diarrhea, nausea, r ectal pain and vomiting. Negative for abdominal distention, anal bleeding and bl ood in stool. Genitourinary: Negative for flank pain and pelvic pain. Musculoskeletal: Positive for back pain, neck pain and neck stiffness. Negative for arthralgias. Skin: Negative for rash. Neurological: Positive for dizziness, weakness, light-headedness, numbness and h eadaches. Hematological: Positive for adenopathy. Psychiatric/Behavioral: The patient is nervous/anxious. [...] TWICE DAILY. PLACE ON TONGUE TO DISSOLVE. prochlorperazine maleate (COMPAZINE) 10 mg tablet Take one-half tablet by mo uth every 6 hours as needed for Nausea or Vomiting. rOPINIRole (REQUIP) 4 mg tablet Take 4 mg by mouth at bedtime daily. sertraline (ZOLOFT) 50 mg tablet Daily Vitals: 06/29/19 1417 BP: 118/63 Pulse: 87 Temp: 36.6 C (97.9 F) TempSrc: Oral Weight: 119 kg (262 lb 4.8 oz) Height: 160 cm (63") Body mass index is 46.46 kg/m. Physical Exam Vitals signs reviewed. Constitutional: General: She is not in acute distress. Appearance: She is well-developed. She is not diaphoretic. HENT: Head: Normocephalic and atraumatic. Eyes: General: No scleral icterus. Right eye: No discharge. Left eye: No discharge. Conjunctiva/sclera: Conjunctivae normal. Pupils: Pupils are equal, round, and reactive to light. Neck: Musculoskeletal: Normal range of motion and neck supple. Thyroid: No thyromegaly. Cardiovascular: Rate and Rhythm: Normal rate and regular rhythm. Heart sounds: Normal heart sounds. Pulmonary: Effort: Pulmonary effort is normal. No respiratory distress. Breath sounds: Normal breath sounds. No wheezing. Abdominal: General: Bowel sounds are normal. There is no distension. Palpations: Abdomen is soft. There is no mass. Tenderness: There is no abdominal tenderness. There is no guarding or rebound . Comments: morbidly obese, soft, no rebound or guarding, mild to moderate tend erness to epigastric region and left abdomen which patient states is chronic. Musculoskeletal: Normal range of motion. Lymphadenopathy: Cervical: No cervical adenopathy. Skin: General: Skin is warm and dry. Findings: No rash. Neurological: Mental Status: She is alert and oriented to person, place, and time. Coordination: Coordination normal. Psychiatric: Behavior: Behavior normal. Thought Content: Thought content normal. Judgment: Judgment normal. Assessment and Plan: 1. Melena. Patient reports intermittent melena over for the past few months. Denies NSAID use. Not currently on PPI therapy. Denies GERD symptoms. 2. History of chronic nausea with intermittent vomiting, no hematemesis. Weigh t stable. Etiology has been unclear. Normal 4-hour gastric emptying test in 05 04 and 2013. Normal a.m. cortisol in 2016. Normal MRI head 2013. Symptoms faile d to improve on Phenergan, Compazine, and scopolamine patch. Minimal improvemen t with high-dose Zofran. 3. Chronic pancreatitis with [...] for renal cell cancer in 03/2017. Derek jamas with [facility] [place]. Scheduled for follow-up with them santiago negrete this week who is also following her for reports of left lower lobe pulmonary nodule. 7. History of incisional hernia repair with mesh 08/2017 and 08/2018. Reports SB O prior to repeat hernia surgery. 8. History of C. difficile, 11/2017. Treated by outside provider. Plan: 1. Lab today -CBC, CMP, ESR, CRP, celiac panel, iron panel. 2. KUB to check retained stool. Patient may need to be on prescribed medicatio n for chronic constipation. Could also consider anorectal manometry for evaluat ion of pelvic floor dyssynergia if symptoms persist. Could try Linzess or Amiti za. Patient does take hydrocodone but not on a regular basis. 3. Her chronic epigastric pain may be related to the chronic pancreatitis. We will start her on Lyrica twice daily to see if helpful. Given history of nephre ctomy, will start on reduced dose, 25 mg p.o. twice daily. Can increase if need ed and as tolerated with monitoring of renal functions. 4. We will start her on pantoprazole 40 mg daily given her reports of melena an d the chance she has peptic ulcers. She will see if she can have an EGD perform ed in [facility]. She will keep me posted. If not, we will try to sched ule here at . 5. She can continue Zofran 8 mg ODT up to 3 times a day. I did advise her to n ot take more than 3 doses per day. 6. Follow-up with oncology in [place] as planned. We will probably have imaging then. I have asked her to try to forward the imaging results to me for review. 7. We will have her return to clinic to follow-up with Dr. Nunez in 3 month s, she is to call or return sooner if needed. The plan of care was discussed with Dr. Nunez while patient in clinic. Total face to face time spent with patient: 70 minutes with >50% of that time spent counseling the patient on medications, prior study results related to symptoms, differential diagnosis, and options regarding the plan of care. Visit start time 2:25 PM. Visit end time 3:35 PM. Today's visit was prolonged due to additional time reviewing patient's extensive history, previous work-up, current symptoms, and events that have occurred since she was evaluated in the GI clinic in 03/2018. Thank you for allowing me to see your patient in the office today. Please feel f ree to contact me if you have any questions or concerns. This note was in part completed with [employer], a voice to text dictation system. S ome errors may have occured and persist despite my best efforts to edit this doc ument to eliminate dictation/translationrelated errors. If you have question s/concerns, please contact me for clarification UCTION TEAM MANAGER documented in this encounter Plan of Treatment Not on filedocumented as of this encounter Results * ABDOMEN AP ONLY (06/29/2019 4:28 PM PRODUCTION TEAM MANAGER) Specimen Impressions Performed At 1. Moderate retained [...] Interface, Radiant Results - 06/29/2019 4:44 PM PRODUCTION TEAM MANAGER Procedure: ABDOMEN AP ONLY Clinical Indication: Evaluate [...] on 06/29/2019 4:34 PM. Performing Organization Address [facility] one Number [facility] RAD RESULTS * C REACTIVE PROTEIN (CRP) (06/29/2019 4:01 PM PRODUCTION TEAM MANAGER) C-Reactive 1.55 (H) <1.0 MG/DL MAIN LAB Protein Specimen Blood Performing Organization Address [facility] one Number MAIN LAB [address] [place] [address] * GLIADIN, DEAMIDATED IGA (06/29/2019 4:01 PM PRODUCTION TEAM MANAGER) Gliadin IGA 2.7 <15 U/mL MAIN LAB Specimen Performing Organization Address [facility] one Number MAIN LAB [address] [place] [phone] * CELIAC SCREEN (06/29/2019 4:01 PM PRODUCTION TEAM MANAGER) TTG IgA <0.5 <15 U/mL [facility] MAIN LAB Interpretation NORMAL [facility] MAIN LAB Specimen Blood Performing Organization Address [facility] one Number MAIN LAB [address] [place] [address] * IRON + BINDING CAPACITY + %SAT+ FERRITIN (06/29/2019 4:01 PM PRODUCTION TEAM MANAGER) Iron 40 (L) 50 - 160 MCG/DL [facility] MAIN LAB Iron 550 (H) 270 - 380 MCG/DL MAIN LAB Binding-TIBC % Saturation 7 (L) 28 - 42 % [facility] MAIN LAB Ferritin 42 10 - 200 NG/ML [facility] MAIN LAB Specimen Blood Performing Organization Address [facility] one Number MAIN LAB [address] [place] [address] * SED RATE (06/29/2019 4:01 PM PRODUCTION TEAM MANAGER) Sed Rate -ESR 24 (H) 0 - 20 MM/HR MAIN LAB Specimen Blood Performing Organization Address [facility] one Number MAIN LAB [address] [place] [address] * COMPREHENSIVE METABOLIC PANEL (06/29/2019 4:01 PM PRODUCTION TEAM MANAGER) Sodium 143 137 - 147 MMOL/L [facility] [...] >60 >60 mL/min [facility] MAIN LAB Comment: [place] The eGFR is not validated f or use in drug dosing adjustments. Continue to use estimated creatinine clearance per dosing reference text. Please contact the Clinical Pharmacist for questions. eGFR >60 >60 mL/min [facility] MAIN LAB [place] Comment: The eGFR is not validated for use in drug dosing adjustments. Continue to use estimated creatinine clearance per dosing reference text. Please contact the Clinical Pharmacist for questions. Specimen Blood Performing Organization Address City/[facility] one Number MAIN LAB [address] [place] [address] * CBC (06/29/2019 4:01 PM PRODUCTION TEAM MANAGER) White Blood 7.5 4.5 - 11.0 K/UL [...] Organization Address City/State/Zipcode Ph one Number [facility] MAIN LAB [address] [place] [address] documented in this encounter Visit Diagnoses Diagnosis Chronic pancreatitis, unspecified pancr eatitis type (HCC) Constipation, unspecified constipation type Epigastric abdominal pain Abdominal pain, epigastric Melena Blood in stool Nausea and vomiting, intractability of vomiting not specified, unspecified vomiting type Chronic nausea Nausea alone Pancreas divisum Congenital anomalies of pancreas documented in this encounter
--- OUTSIDE RECORDS SUMMARY | 2019-10-17 05:04 | XMS REPORT | Encounter Summary ---
Author Author [facility] Organization [facility] Address Unknown Phone Unavailable Care Team Providers Care Alumni Relations Coordinator Name Role Phone Michael Sutton MD Unavailable Unavailable Mary Whittington MD PCP Jessica Valera CORPORATE RELATIONS DIRECTOR-BEADWORKER Unavailable Maggie Puente Unavailable Unavailable Mary Telles CORPORATE RELATIONS DIRECTOR Unavailable [phone] Bam Ritter MD Unavailable Unavailable Radha Bo LPN Unavailable Unavailable Jose Sanchez MD Unavailable Encounter Details Care Team Description Date Type Department Leah Ramsey 06/29/2019 Clinical [facility] [address] [facility] [address] [place] [address] Social History Date Tobacco Use Types Packs/Day [...] impairment: Yes documented as of this encounter Progress Notes * Leah Ramsey - 06/29/2019 11:15 AM SHUTTLE THREADER Social Work Progress Note Plan. Cab Voucher Assessment. Social Work was contacted by Julia in the [facility] filiberto samuels at [place]. The patient scheduled in clinic today reported she did not have transportation to her next appointment, which is at [facility] in the [facility] at 2:30 PM. The patient communicated her means of transportation " left her." However, the patient indicated she does have transportation to get ho me. Intervention. Social Work conducted a brief chart review to ascertain pertinent information. Subsequently, Social Work completed a cab voucher ([id number]) and tico led dispatch to schedule a 1:30 PM black pickler. The trip number is [id number]. Social Work will deliver the cab voucher to Julia in the [facility] Leah Ramsey LMSW Outpatient Health Commissioner [phone] TLE THREADER documented in this encounter Plan of Treatment Not on filedocumented as of this encounter Visit Diagnoses Not on filedocumented in this encounter
--- OUTSIDE RECORDS SUMMARY | 2019-10-17 05:04 | XMS REPORT | Encounter Summary ---
Author Author [facility] Organization [facility] Address Unknown Phone Unavailable Care Team Providers Care Drill Setup Operator Name Role Phone Michael Sutton MD Unavailable Unavailable Mary Whittington MD PCP Jessica Valera LOSS PREVENTION OFFICER-EDITOR BOOK Unavailable Maggie Puente Unavailable Unavailable Mary Telles LOSS PREVENTION OFFICER Unavailable [phone] Bam Ritter MD Unavailable Unavailable Radha Bo PODIATRIC SURGEON Unavailable Unavailable Jose Sanchez MD Unavailable Reason for Visit * Reason Comments Medication Refill Encounter Details Care Team Description Date Type Department Randy Nunez MD [address] [facility] [address] [place] [address] Medication monitoring encounter 05/20/2019 Refill [facility] [address] [place] [address] Social History Date Tobacco Use [...]
--- OUTSIDE RECORDS SUMMARY | 2019-10-17 05:04 | XMS REPORT | Encounter Summary ---
Author Author [facility] Organization [facility] Address Unknown Phone Unavailable Care Team Providers Care Underground Bolting Machine Operator Name Role Phone Michael Sutton MD Unavailable Unavailable Mary Whittington MD PCP Jessica Valera WOOL CLEANER-RUNNER MAN Unavailable Maggie Puente Unavailable Unavailable Mary Telles WOOL CLEANER Unavailable [phone] Bam Ritter MD Unavailable Unavailable Radha Bo PHARMACEUTICAL COMPOUNDING SUPERVISOR Unavailable Unavailable Jose Sanchez MD Unavailable Encounter Details Care Team Description Date Type Department Dann Kelly MD [address] [facility] [place] [address] Back pain, unspecified back location, un specified back pain laterality, unspecified chronicity (Primary Dx) 06/11/2019 Orders Only [facility] [address] [place] [address] Social History Date Tobacco Use Types Packs/Day [...] u nspecified back pain laterality, unspecified chronicity documented in this encounter
--- OUTSIDE RECORDS SUMMARY | 2019-10-17 05:04 | XMS REPORT | Encounter Summary ---
Author Author [facility] Organization [facility] Address Unknown Phone Unavailable Care Team Providers Care Director Of Kids Name Role Phone Michael Sutton MD Unavailable Unavailable Mary Whittington MD PCP UtJessiac weaver TUBE BENDER HAND-RETAIL CLIENT SOLUTIONS ANALYST Unavailable Maggie Puente Unavailable Unavailable Mary Telles TUBE BENDER HAND Unavailable Bam Ritter MD Unavailable Unavailable Radha Bo COMPLIANCE TESTING ANALYST Unavailable Unavailable Jose Sanchez MD Unavailable Reason for Referral * Radiology Services (Routine) Referred By Contact Referred To Contact Status Reason Specialty Diagnoses / [place] [address] [facility] Med Office Bld [address] [place] [address] Ic[address] Mri [address] [place] [address] No Auth Needed Radiology Diagnoses Right knee pain, unspecified chronicity Tear of medial meniscus of right knee, current, unspecified tear type, initial encounter P rocedures MRI LOWER EXT JNT WO CONT RIGHT Reason for Visit * Reason Comments New Patient Right knee * Consult, Test & Treat (Routine) Referred By Contact Referred To Contact Status Reason Specialty Diagnoses / Procedures Mary Whittington MD [address] [place] [address] [facility] [address] [place] [address] No Auth Needed Orthopedic Surgery Encounter Details Care Team Description Date Type Department Donald Amaya Jp, MD [address] [id number] [place] [address] Med Office Bld [address] [place] [address] [phone] Right knee pain, unspecified chronicity (Primary Dx); Tear of medial meniscus of right knee, current, unspecified tear type, initial encounter 06/29/2019 Office Visit [facility] [address] [place] [address] Social History Date Tobacco Use Types Packs/Day [...] Signs Reading Time Taken Comments Vital Sign 124/77 06/29/2019 9:32 AM DIETARY ASSISTANT Blood Pressure 87 06/29/2019 9:32 AM DIETARY ASSISTANT Pulse - - Temperature - - Respiratory Rate - - Oxygen Saturation - - Inhaled Oxygen Concentration 119.7 kg (264 lb) 06/29/2019 9:32 AM DIETARY ASSISTANT Weight 160 cm (5' 3") 06/29/2019 9:32 AM DIETARY ASSISTANT Height 46.77 06/29/2019 9:32 AM DIETARY ASSISTANT Body Mass Index documented in this [...] this encounter Patient Instructions * Patient Instructions* Nakul Bates MA - 06/29/2019 8:30 AM DIETARY ASSISTANT Please do not hesitate to contact my office with any questions. Dr. Franky Marrero & Bruna Dobbins PA-C | Orthopedic Surgeon, Sports Medicine [facility] | | [phone] [address], [address] | [place] [address] Katina GUERRERON, RN | Clinical Nurse Coordinator Clinton CESAR, RN | Clinical Nurse Coordinator Tonya Bañuelos MS, ATC, LAT | Clinical Driver License Agent Thank you for supporting our practice! Your feedback helps us deliver the highes t quality of care. Review us at: [email or web address] ARY ASSISTANT documented in this encounter Progress Notes * Franky Marrero MD - 06/29/2019 8:30 AM DIETARY ASSISTANT Date of Service: 06/29/2019 Chief Complaint Patient presents with New Patient Right knee History of present illness: Ms. Rajput is a 34-year-old female presents clinic for evaluation of her right knee. States that she has a long history of knee pain. For greater than 5 years. She has had 3 arthroscopic procedures on her knee. Last one was in 2016. She was told she has a "flap" under her kneecap. Her pa in is been increasing over the last year. Primarily located on the medial aspec t of her knee. She did physical therapy last year in September 2018. She is had 4 injections in this knee last one was years ago. She does wear a brace at night. States she has swelling as well as catching and locking and that it gives out on her. Previously been seen in [facility] in Ortho 4 states is no longe r seen his practice as she missed too many appointments. She currently takes Ty lenol and hydrocodone for pain control. She has a complex medical history. Mos t notably for kidney cancer status post nephrectomy. She cannot take anti-infla mmatories. She currently on disability for pancreatitis. She had approximately 45 surgeries in her life. She is a non-smoker. Physical exam: Obese female. Right knee is examined. Tender palpation medial p atellar facet as well as the medial quadriceps tendon along her VMO. Tender pal pation along the medial joint line. Trace effusion today. Range of motion is 0 -130. Positive Stoney's. Knee is stable to ligamentous exam. Stable to varu s valgus stress and anterior posterior drawer. Negative Chung's. Imaging: X-rays reviewed with evidence of early joint space narrowing. Mild deg enerative changes. Assessment and plan: 34-year-old female right knee pain patellofemoral syndrome, early degenerative joint disease, possible medial meniscus tear Long discussion was had with Ms. Rajput about her symptoms, exam and imaging. Bot h nonoperative and operative treatment options were discussed with her. At this time she has had multiple procedures as well as nonoperative management of her knee. She continues to have pain. She is overweight with a BMI of 46.8. I dis cussed weight loss management options with her. She is understanding of this. At this time I think most prudent to obtain an MRI of her knee to evaluate the i ntra-articular structures. Particular the state of her cartilage and her menisc us. Extensive discussion with her that we would try nonoperative management tho roughly before discussing any further surgeries as she is already had 3 with min imal benefit. She is in agreement with this plan and all of her other questions and concerns were addressed. She will follow-up with us after obtaining the MR I. I have personally reviewed the patient intake form with the patient today, it wa s signed by me and scanned into O2. Please see below for details. Past Medical History: Medical History: Diagnosis Date Abdominal pain, chronic, [...] Vitamin D deficiency Weight gain Unintentional significant Surgical History: Procedure Laterality Date CHOLECYSTECTOMY 06/2005 UPPER GASTROINTESTINAL ENDOSCOPY 04/2009 LIPOMA RESECTION 06/2009 Abdominal wall lipoma removal COLONOSCOPY 01/2010 TRIGGER POINT INJECTION (1-2 MUSCLE GROUPS) 03/2010 Epigastric region with bupivacaine HX HYSTERECTOMY total NEPHRECTOMY Left 03/2017 NEPHRECTOMY LAPAROSCOPY Left 04/10/2017 Performed by Abel Poe MD at Main OR/Periop ESOPHAGOGASTRODUODENOSCOPY ENDOSCOPIC ULTRASOUND N/A 01/31/2018 Performed by Hal Sparks MD at ENDO/GI ESOPHAGOGASTRODUODENOSCOPY WITH ENDOSCOPIC ULTRASOUND EXAMINATION - FLEXIBLE N/A 08/22/2018 Performed by Hal Sparks MD at ENDO/GI CELIAC PLEXUS BLOCK HX KNEE SURGERY -2011, removal of "extra bone" HX TONSILLECTOMY Allergies: Penicillins; Demerol (pf) [meperidine (pf)]; Fentanyl; and Vancomycin Current Medications: acetaminophen (TYLENOL) 500 mg tablet Take 1,000 [...] daily. sertraline (ZOLOFT) 50 mg tablet Daily Social History: Social History Tobacco Use Smoking Status Never Smoker Smokeless Tobacco Never Used Social History Substance and Sexual Activity Drug Use No Social History Substance and Sexual Activity Alcohol Use No Family History Problem Relation Age of Onset Hypertension Father Diabetes Father Cancer-Ovarian Mother Cancer Mother Cervix Arthritis-rheumatoid Mother Hypertension Mother Cancer-Ovarian Maternal Grandmother Cancer Maternal Grandmother Cervix Cancer-Colon Maternal Grandfather Heart Disease Other General Physical Exam: General/Constitutional:No apparent distress: well-nourished and well developed. Eyes: Sclera nonicteric, conjunctiva clear Respiratory:No shortness of breath or dyspnea Cardiac: No clubbing, cyanosis, or edema Vascular: No edema, swelling or tenderness, except as noted in detailed exam. Integumentary:No impressive skin lesions present, except as noted in detailed ex am. Neuro/Psych: Normal mood and affect, oriented to person, place and time. Musculoskeletal: Normal, except as noted in detailed exam and in HPI. Review Of Systems: A 14 point review of systems including HEENT, cardiovascular, pulmonary, gastroi ntestinal,?genitourinary, psychiatric, neurologic, musculoskeletal, endocrine, a nd integumentary are negative unless otherwise noted in the history of present i llness or on the signed intake form. Objective: Vitals: 06/29/19 0932 BP: 124/77 Pulse: 87 Weight: 119.7 kg (264 lb) Height: 160 cm (63") Body mass index is 46.77 kg/m. ATTESTATION I personally performed the E/M including history, physical exam, and MDM. Staff name: Franky Marrero MD Date: 06/29/2019 Franky Marrero MD Portions of this noted may have been created using [employer], a [employer] recognition s oftware. Please contact my office for any clarification of documentation Please send a copy of office notes to the primary care physician and referring p john ARY ASSISTANT documented in this encounter Plan of Treatment Order Schedule Name Type Priority Associated Diag noses Expected: 06/29/2019 (Approximate), Expi res: 06/28/2020 MRI LOWER EXT JNT WO CONT Imaging Routine Righ t knee pain, RIGHT unspecified chronicity Tear of medial meniscus of right knee, current, unspecified tear type, initial encounter documented as of this encounter Visit Diagnoses Diagnosis Right knee pain, unspecified chronicity Tear of medial meniscus of right knee, current, unspecified tear type, initial encounter documented in this encounter
--- OUTSIDE RECORDS SUMMARY | 2019-10-17 05:04 | XMS REPORT | Encounter Summary ---
Author Author [facility] Organization [facility] Address Unknown Phone Unavailable Care Team Providers Care Income Tax Manager Name Role Phone Michael Sutton MD Unavailable Unavailable Mary Whittington MD PCP Jessica Valera EMPLOYMENT SECURITY OFFICER-OUTSIDE ENERGY SALES REPRESENTATIVES Unavailable Maggie Puente Unavailable Unavailable Mary Telles EMPLOYMENT SECURITY OFFICER Unavailable [phone] Bam Ritter MD Unavailable Unavailable Radha Bo ARBOREAL SCIENTIST Unavailable Unavailable Jose Sanchez MD Unavailable Reason for Visit * Reason Comments Pre-Visit Planning Encounter Details Care Team Description Date Type Department Dann Kelly MD [address] [place] [address] Pre-Visit Planning 06/09/2019 Telephone [facility] [address] [address] Social History Date Tobacco Use [...] - Kathia Giang - 06/09/2019 12:57 PM ETL APPLICATION DEVELOPER Pre Visit Planning- New Patient Records received: Yes Orders have been ordered [facility]. No appointment reminder sent. . Patient notified of upcoming appointment. Updated chart: Medication, History and Allergies MRI PACS APPLICATION DEVELOPER documented in this encounter Plan of Treatment Not on filedocumented as of this encounter Visit Diagnoses Not on filedocumented in this encounter
--- OUTSIDE RECORDS SUMMARY | 2019-10-17 05:04 | XMS REPORT | Encounter Summary ---
Author Author [facility] Organization [facility] Address Unknown Phone Unavailable Care Team Providers Care Home Visit Field Care Manager Name Role Phone Michael Sutton MD Unavailable Unavailable Mary Whittington MD PCP Jessica Valera BUSINESS ANALYST CONSULTANT-NAVAL SCIENCE TEACHER Unavailable Maggie Puente Unavailable Unavailable Mary Telles BUSINESS ANALYST CONSULTANT Unavailable [phone] Bam Ritter MD Unavailable Unavailable Radha Bo BEHAVIORAL HEALTH CARE MANAGER Unavailable Unavailable Jose Sanchez MD Unavailable Encounter Details Care Team Description Date Type Department Donald Amaya Jp, MD [address] [place] [address] [phone] 06/29/2019 [facility] [address] [facility] [address] [place] [address] Social History Date Tobacco Use Types Packs/Day [...] Routine 06/29/2019 Right knee pain, 9:47 AM CRIME LABORATORY ANALYST unspecified chronicity documented in this encounter Results * KNEE 3 VIEWS RIGHT (06/29/2019 9:47 AM CRIME LABORATORY ANALYST) Specimen Right Impressions Performed At Findings/impression: [facility] RESULTS 1. A fracture or dislocation is not alon ntified. 2. Small osteophytes are present involv ing the right knee. Moderate medial compartment joint space narrowing is pr esent. 3. A joint effusion is not appreciated. 4. The left knee [facility]. Mild medial [...] Interface, Radiant Results - 06/29/2019 10:15 AM CRIME LABORATORY ANALYST Right knee Clinic data: Right knee pain Three projections were acquired. No prior studies are available for comparison. IMPRESSION Findings/impression: 1. A fracture or dislocation is not iden tified. 2. Small osteophytes are present involvi ng the right knee. Moderate medial compartment joint space narrowing is present. 3. A joint effusion is not appreciated. 4. The left [facility]. Mild medial compartment joint space narrowing is present. Finalized by Deo Bassett M.D. on 06/29/2019 10:11 AM. Dictated by Deo Bassett M.D. on 06/29/2019 10:07 AM. Performing Organization Address City/State/Zipcode Ph one Number [facility] RESULTS documented in this encounter Visit Diagnoses Not on filedocumented in this encounter
--- OUTSIDE RECORDS SUMMARY | 2019-10-17 05:05 | XMS REPORT ---
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 unspecified wrist M2 5.539 and Back pain, thoracic M54.6 [facility] [address] [facility] [id number] [address] [place] [address] 13 Jun, 2015 Strain of right wrist, initi al encounter S66.911A [place] [address] [address] [facility] [id number] [address] [place] [address] 11 Jun, 2015 Chronic pancreatitis, unspec ified pancreatitis type K86.1 ; Hirsuties L68.0 ; Morbid (severe) obesity due to excess calories E66.01 ; Chronic pancreatitis K86.1 and Asthma J45.909 [place] [address] [address] [facility] [id number] [address] [place] [address] 14 May, 2015 [place] [address] [place] [id number] [address] [place] [address] 09 May, 2015 Hyperlipidemia, mixed E78.2 and Muscle spasm of back M62.830 [place] [address] [address] [facility] [id number] [address] [place] [address] 30 Apr, 2015 [place] [address] [address] [facility] [id number] [address] [place] [address] 16 Apr, 2015 Torticollis M43.6 [place] [address] [address] [facility] [id number] [address] [place] [address] 09 Apr, 2015 Right-sided thoracic back pa in M54.6 [place] [address] [address] [facility] [id number] [address] [place] [address] 15 Mar, 2015 Rash R21 [facility] [address] [facility] [id number] [address] [place] [address] 06 Mar, 2015 [place] [address] [address] [facility] [id number] [address] [place] [address] Jan, [facility] [address] [facility] [id number] [address] [place] [address] Dec, [facility] [address] [facility] [id number] [address] [place] [address] Dec, Urinary frequency 788.41 and Nocturia more than twice per night 788.43 [facility] [address] [facility] [id number] [address] [place] [address] Nov, [facility] [address] [facility] [id number] [address] [place] [address] Nov, [facility] [address] [facility] [id number] [address] [place] [address] Nov, Abdominal pain 789.00 [facility] [address] [place] [id number] [address] [place] [address] October, TDAP DX V06.1 [facility] [address] [place] [id number] [address] [place] [address] October, [facility] [address] [place] [id number] [address] [place] [address] October, Disturbance of skin sensatio n 782.0 ; Wrist pain, right 719.43 ; Hyperlipidemia 272.4 and Skin lesion of face 709.9 [facility] [address] [place] [id number] [address] [place] [address] Sep, [facility] [address] [facility] [id number] [address] [place] [address] Sep, [facility] [address] [place] [id number] [address] [place] [address] Aug, [facility] [address] [place] [id number] [address] [place] [address] Aug, [facility] [address] [place] [id number] [address] [place] [address] Aug, [facility] [address] [id number] [address] [place] [address], [place] [address] 23 Aug, 2014 [facility] [address] [id number] [address] [place] [address], [place] [address] 16 Aug, 2014 [facility] [address] [id number] [address] [place] [address], [place] [address] 16 Aug, 2014 [facility] [address] [id number] [address] [place] [address], [place] [address] 14 Aug, 2014 [facility] [address] [id number] [address] [place] [address], [place] [address] 14 Aug, 2014 [facility] [address] [id number] [address] [place] [address], [place] [address] 11 Aug, 2014 [facility] [address] [id number] [address] [place] [address], [place] [address] 11 Aug, 2014 [facility] [address] [id number] [address] [place] [address], [place] [address] 04 Aug, 2014 [facility] [address] [id number] [address] [place] [address], [place] [address] 04 Aug, 2014 [facility] [address] [id number] [address] [place] [address], [place] [address] 03 Aug, 2014 [facility] [address] [id number] [address] [place] [address], [place] [address] Aug, 2014 [facility] [address] [id number] [address] [place] [address], [place] [address] Jul, 2014 [facility] [address] [id number] [address] [place] [address], [place] [address] Jul, 2014 [facility] [address] [id number] [address] [place] [address], [place] [address] 13 Jul, 2014 [facility] [address] [id number] [address] [place] [address], [place] [address] Jul, 2014 [facility] [address] [id number] [address] [place] [address] Jul, [facility] [address] [id number] [address] [place] [address], [place] [address] Jul, [facility] [address] [id number] [address] [place] [address] Jun, [facility] [address] [id number] [address] [place] [address], [place] [address] Jun, [facility] [address] [id number] [address] [place] [address], [place] [address] Jun, [facility] [address] [id number] [address] [place] [address], [place] [address] Jun, [facility] [address] [id number] [address] [place] [address], [place] [address] Jun, [facility] [address] [id number] [address] [place] [address] Jun, [facility] [address] [id number] [address] [place] [address], [place] [address] Jun, [facility] [address] [id number] [address] [place] [address], [place] [address] Jun, [facility] [address] [id number] [address] [place] [address], [place] [address] May, [facility] [address] [id number] [address] [place] [address], [place] [address] May, [facility] [address] [id number] [address] [place] [address] 18 May, 2014 [facility] [address] [id number] [address] [place] [address], [place] [address] 18 May, 2014 [facility] [address] [id number] [address] [place] [address], [place] [address] 15 May, 2014 [facility] [address] [id number] [address] [place] [address], [place] [address] 15 May, 2014 [facility] [address] [id number] [address] [place] [address], [place] [address] May, [facility] [address] [id number] [address] [place] [address], [place] [address] May, [facility] [address] [id number] [address] [place] [address], [place] [address] May, [facility] [address] [id number] [address] [place] [address], [place] [address] May, [facility] [address] [id number] [address] [place] [address], [place] [address] May, [facility] [address] [id number] [address] [place] [address], [place] [address] May, [facility] [address] [id number] [address] [place] [address], [place] [address] Apr, [facility] [address] [id number] [address] [place] [address], [place] [address] Apr, [facility] [address] [id number] [address] [place] [address], [place] [address] Apr, [facility] [address] [id number] [address] [place] [address], [place] [address] Apr, [facility] [address] [id number] [address] [place] [address], [place] [address] Apr, [facility] [address] [id number] [address] [place] [address], [place] [address] Apr, [facility] [address] [id number] [address] [place] [address], [place] [address] Apr, [facility] [address] [id number] [address] [place] [address], [place] [address] Apr, [facility] [address] [id number] [address] [place] [address], [place] [address] 13 Apr, 2014 [facility] [address] [id number] [address] [place] [address] [address] Apr, [facility] [address] [id number] [address] [place] [address], [place] [address] Apr, [facility] [address] [id number] [address] [place] [address], [place] [address] Apr, [facility] [address] [id number] [address] [place] [address], [place] [address] Mar, [facility] [address] [id number] [address] [place] [address], [place] [address] Mar, [facility] [address] [id number] [address] [place] [address], [place] [address] Mar, [facility] [address] [id number] [address] [place] [address], [place] [address] Mar, [facility] [address] [id number] [address] [place] [address], [place] [address] Feb, [facility] [address] [id number] [address] [place] [address], [place] [address] 10 Feb, 2013 [facility] [address] [id number] [address] [place] [address], [place] [address] 05 Feb, 2013 [facility] [address] [id number] [address] [place] [address], [place] [address] 05 Feb, 2013 [facility] [address] [id number] [address] [place] [address], [place] [address] Feb, 2013 [facility] [address] [id number] [address] [place] [address], [place] [address] Feb, 2013 [facility] [address] [id number] [address] [place] [address], [place] [address] Jan, [facility] [address] [id number] [address] [place] [address], [place] [address] Jan, [facility] [address] [id number] [address] [place] [address], [place] [address] Jan, [facility] [address] [id number] [facility] [place] [address] Jan, [facility] [address] [id number] [address] [place] [address], [place] [address] Jan, [facility] [address] [id number] [address] [place] [address], [place] [address] Jan, [facility] [address] [id number] [address] [place] [address], [place] [address] Jan, [facility] [address] [id number] [address] [place] [address], [place] [address] Jan, [facility] [address] [id number] [address] [place] [address], [place] [address] Jan, [facility] [address] [id number] [address] [place] [address], [place] [address] Jan, [facility] [address] [id number] [address] [place] [address], [place] [address] Jan, [facility] [address] [id number] [address] [place] [address], [place] [address] Jan, [facility] [address] [id number] [address] [place] [address], [place] [address] Jan, [facility] [address] [id number] [address] [place] [address], [place] [address] Jan, [facility] [address] [id number] [address] [place] [address], [place] [address] Dec, [facility] [address] [id number] [address] [place] [address], [place] [address] Dec, [facility] [address] [id number] [address] [place] [address], [place] [address] Dec, [facility] [address] [id number] [address] [place] [address], [place] [address] Dec, [facility] [address] [id number] [address] [place] [address], [place] [address] Nov, [facility] [address] [id number] [address] [place] [address], [place] [address] Nov, [facility] [address] [id number] [address] [place] [address], [place] [address] Nov, [facility] [address] [id number] [address] [place] [address], [place] [address] Nov, [facility] [address] [id number] [address] [place] [address], [place] [address] Nov, [facility] [address] [id number] [address] [place] [address], [place] [address] October, [facility] [address] [id number] [address] [place] [address], [place] [address] October, [facility] [address] [id number] [address] [place] [address], [place] [address] October, [facility] [address] [id number] [address] [place] [address], [place] [address] October, [facility] [address] [id number] [address] [place] [address], [place] [address] October, [facility] [address] [id number] [address] [place] [address], [place] [address] October, [facility] [address] [id number] [address] [place] [address] [address] October, [facility] [address] [id number] [address] [place] [address], [place] [address] October, [facility] [address] [id number] [address] [place] [address], [place] [address] October, [facility] [address] [id number] [address] [place] [address], [place] [address] October, [facility] [address] [id number] [address] [place] [address], [place] [address] October, [facility] [address] [id number] [address] [place] [address], [place] [address] October, [facility] [address] [id number] [facility] [place] [address] October, [facility] [address] [id number] [address] [place] [address], [place] [address] October, [facility] [address] [id number] [address] [place] [address], [place] [address] Sep, [facility] [address] [id number] [address] [place] [address], [place] [address] Sep, [facility] [address] [id number] [address] [place] [address], [place] [address] Sep, [facility] [address] [id number] [address] [place] [address], [place] [address] Sep, [facility] [address] [id number] [address] [place] [address], [place] [address] Sep, [facility] [address] [id number] [address] [place] [address], [place] [address] Sep, [facility] [address] [id number] [address] [place] [address], [place] [address] Sep, [facility] [address] [id number] [address] [place] [address], [place] [address] Sep, [facility] [address] [id number] [address] [place] [address], [place] [address] Sep, [facility] [address] [id number] [address] [place] [address], [place] [address] Sep, [facility] [address] [id number] [address] [place] [address], [place] [address] Sep, [facility] [address] [id number] [address] [place] [address], [place] [address] Sep, [facility] [address] [id number] [address] [place] [address], [place] [address] Sep, [facility] [address] [id number] [address] [place] [address], [place] [address] Sep, [facility] [address] [id number] [address] [place] [address], [place] [address] Sep, [facility] [address] [id number] [address] [place] [address], [place] [address] Aug, [facility] [address] [id number] [address] [place] [address], [place] [address] Aug, [facility] [address] [id number] [address] [place] [address], [place] [address] Aug, [facility] [address] [id number] [address] [place] [address], [place] [address] Aug, [facility] [address] [id number] [address] [place] [address], [place] [address] Jul, [facility] [address] [id number] [address] [place] [address], [place] [address] Jul, [facility] [address] [id number] [address] [place] [address], [place] [address] Jul, [facility] [address] [id number] [address] [place] [address], [place] [address] Jul, [facility] [address] [id number] [address] [place] [address], [place] [address] Jun, [facility] [address] [id number] [address] [place] [address], [place] [address] Jun, [facility] [address] [id number] [address] [place] [address], [place] [address] Jun, [facility] [address] [id number] [address] [place] [address], [place] [address] Jun, [facility] [address] [id number] [address] [place] [address], [place] [address] Jun, [facility] [address] [id number] [address] [place] [address] [address] Jun, [facility] [address] [id number] [address] [place] [address], [place] [address] 08 Jun, 2013 [facility] [address] [id number] [address] [place] [address], [place] [address] 08 Jun, 2013 [facility] [address] [id number] [address] [place] [address], [place] [address] 20 May, 2013 [facility] [address] [id number] [address] [place] [address], [place] [address] 20 May, 2013 [facility] [address] [id number] [address] [place] [address], [place] [address] 18 May, 2013 [facility] [address] [id number] [address] [place] [address], [place] [address] 18 May, 2013 [facility] [address] [id number] [address] [place] [address], [place] [address] 17 May, 2013 [facility] [address] [id number] [address] [place] [address], [place] [id number] 17 May, 2013 [facility] [address] [id number] [address] [place] [address], [place] [address] 17 May, 2013 [facility] [address] [id number] [address] [place] [address], [place] [address] 17 May, 2013 [facility] [address] [id number] [address] [place] [address], [place] [address] 16 May, 2013 [facility] [address] [id number] [address] [place] [address], [place] [address] 16 May, 2013 [facility] [address] [id number] [address] [place] [address], [place] [address] 14 May, 2013 [facility] [address] [id number] [address] [place] [address], [place] [address] 14 May, 2013 [facility] [address] [id number] [address] [place] [address], [place] [address] 13 May, 2013 [facility] [address] [id number] [address] [place] [address], [place] [address] 13 May, 2013 [facility] [address] [id number] [address] [place] [address], [place] [address] May, [facility] [address] [id number] [address] [place] [address], [place] [address] May, [facility] [address] [id number] [address] [place] [address], [place] [address] May, [facility] [address] [id number] [address] [place] [address], [place] [address] May, [facility] [address] [id number] [address] [place] [address], [place] [address] Apr, [facility] [address] [id number] [address] [place] [address], [place] [address] Apr, [facility] [address] [id number] [address] [place] [address], [place] [address] Apr, [facility] [address] [id number] [address] [place] [address], [place] [address] Apr, [facility] [address] [id number] [address] [place] [address], [place] [address] Aug, [facility] [address] [id number] [address] [place] [address], [place] [address] Aug, [facility] [address] [id number] [address] [place] [address], [place] [address] 06 Aug, 2012 [facility] [address] [id number] [address] [place] [address], [place] [address] 05 Aug, 2012 [facility] [address] [id number] [address] [place] [address], [place] [address] 04 Jul, 2012 [facility] [address] [id number] [address] [place] [address], [place] [address] Jun, [facility] [address] [id number] [address] [place] [address], [place] [address] Jun, [facility] [address] [id number] [address] [place] [address], [place] [address] Jun, [facility] [address] [id number] [address] [place] [address], [place] [address] Jun, [facility] [address] [id number] [address] [place] [address], [place] [address] May, [facility] [address] [id number] [address] [place] [address], [place] [address] May, [facility] [address] [id number] [address] [place] [address], [place] [address] May, [facility] [address] [id number] [address] [place] [address], [place] [address] May, [facility] [address] [id number] [address] [place] [address], [place] [address] May, [facility] [address] [id number] [address] [place] [address], [place] [address] May, [facility] [address] [id number] [address] [place] [address], [place] [address] May, [facility] [address] [id number] [address] [place] [address], [place] [address] Apr, [facility] [address] [id number] [address] [place] [address], [place] [address] Apr, [facility] [address] [id number] [address] [place] [address], [place] [address] Apr, [facility] [address] [id number] [address] [place] [address], [place] [address] Apr, [facility] [address] [id number] [address] [place] [address], [place] [address] Apr, [facility] [address] [id number] [address] [place] [address], [place] [address] Apr, [facility] [address] [id number] [address] [place] [address], [place] [address] Apr, [facility] [address] [id number] [address] [place] [address], [place] [address] Mar, [facility] [address] [id number] [address] [place] [address], [place] [address] Mar, [facility] [address] [id number] [address] [place] [address], [place] [address] Mar, [facility] [address] [id number] [address] [place] [address] Mar, [facility] [address] [id number] [address] [place] [address], [place] [address] Mar, [facility] [address] [id number] [address] [place] [address] Mar, [facility] [address] [id number] [address] [place] [address], [place] [address] Mar, [facility] [address] [id number] [address] [place] [address] Mar, [facility] [address] [id number] [address] [place] [address], [place] [address] 15 Mar, 2012 [facility] [address] [id number] [address] [place] [address] Mar, [facility] [address] [id number] [address] [place] [address] Mar, [facility] [address] [id number] [address] [place] [address] Mar, [facility] [address] [id number] [address] [place] [address], [place] [address] Feb, [facility] [address] [id number] [address] [place] [address] Jan, [facility] [address] [id number] [address] [place] [address], [place] [address] Jan, [facility] [address] [id number] [address] [place] [address], [place] [address] Jan, [facility] [address] [id number] [address] [place] [address], [place] [address] Jan, [facility] [address] [id number] [address] [place] [address], [place] [address] Jan, [facility] [address] [id number] [address] [place] [address], [place] [address] Dec, [facility] [address] [id number] [address] [place] [address], [place] [address] Dec, [facility] [address] [id number] [address] [place] [address], [place] [address] Nov, [facility] [address] [id number] [address] [place] [address], [place] [address] Nov, [facility] [address] [id number] [address] [place] [address], [place] [address] Nov, [facility] [address] [id number] [address] [place] [address], [place] [address] October, [facility] [address] [id number] [address] [place] [address], [place] [address] October, [facility] [address] [id number] [address] [place] [address], [place] [address] October, [facility] [address] [id number] [address] [place] [address], [place] [address] October, [facility] [address] [id number] [address] [place] [address], [place] [address] October, [facility] [address] [id number] [address] [place] [address], [place] [address] October, [facility] [address] [id number] [address] [place] [address], [place] [address] October, [facility] [address] [id number] [address] [place] [address], [place] [address] Sep, [facility] [address] [id number] [address] [place] [address], [place] [address] Sep, [facility] [address] [id number] [address] [place] [address], [place] [address] Sep, [facility] [address] [id number] [address] [place] [address], [place] [address] Sep, [facility] [address] [id number] [address] [place] [address], [place] [address] 24 Sep, 2011 [facility] [address] [id number] [address] [place] [address], [place] [address] 19 Sep, 2011 [facility] [address] [id number] [address] [place] [address], [place] [address] 17 Sep, 2011 [facility] [address] [id number] [address] [place] [address], [place] [address] 16 Sep, 2011 [facility] [address] [id number] [address] [place] [address], [place] [address] 16 Sep, 2011 [facility] [address] [id number] [address] [place] [address], [place] [address] 14 Sep, 2011 [facility] [address] [id number] [address] [place] [address], [place] [address] 13 Sep, 2011 [facility] [address] [id number] [address] [place] [address], [place] [address] 10 Sep, 2011 [facility] [address] [id number] [address] [place] [address], [place] [address] 09 Sep, 2011 [facility] [address] [id number] [address] [place] [address], [place] [address] 27 Aug, 2011 [facility] [address] [id number] [address] [place] [address], [place] [address] 12 Aug, 2011 [facility] [address] [id number] [address] [place] [address], [place] [address] 08 Aug, 2011 [facility] [address] [id number] [address] [place] [address], [place] [address] 06 Aug, 2011 [facility] [address] [id number] [address] [place] [address], [place] [address] 28 Jul, 2011 [facility] [address] [id number] [address] [place] [address], [place] [address] 22 Jul, 2011 [facility] [address] [id number] [address] [place] [address], [place] [address] 16 Jul, 2011 [facility] [address] [id number] [address] [place] [address], [place] [address] 15 Jul, 2011 [facility] [address] [id number] [address] [place] [address], [place] [address] 14 Jul, 2011 [facility] [address] [id number] [address] [place] [address], [place] [address] 10 Jul, 2011 [facility] [address] [id number] [address] [place] [address], [place] [address] 30 Jun, 2011 [facility] [address] [id number] [address] [place] [address], [place] [address] 05 Jun, 2011 [facility] [address] [id number] [address] [place] [address], [place] [address] Jun, [facility] [address] [id number] [address] [place] [address], [place] [address] 03 Jun, 2011 [facility] [address] [id number] [address] [place] [address], [place] [address] Jun, [facility] [address] [id number] [address] [place] [address], [place] [address] May, [facility] [address] [id number] [address] [place] [address], [place] [address] May, [facility] [address] [id number] [address] [place] [address], [place] [address] 14 May, 2011 [facility] [address] [id number] [address] [place] [address], [place] [address] 14 May, 2011 [facility] [address] [id number] [address] [place] [address], [place] [address] 12 May, 2011 [facility] [address] [id number] [address] [place] [address], [place] [address] May, [facility] [address] [id number] [address] [place] [address], [place] [address] 05 May, 2011 [facility] [address] [id number] [address] [place] [address], [place] [address] Apr, [facility] [address] [id number] [address] [place] [address], [place] [address] Apr, [facility] [address] [id number] [address] [place] [address], [place] [address] Apr, [facility] [address] [id number] [address] [place] [address], [place] [address] Apr, [facility] [address] [id number] [address] [place] [address], [place] [address] Apr, [facility] [address] [id number] [address] [place] [address], [place] [address] Apr, [facility] [address] [id number] [address] [place] [address] Mar, [facility] [address] [id number] [address] [place] [address] Mar, [facility] [address] [id number] [address] [place] [address] Mar, [facility] [address] [id number] [address] [place] [address], [place] [address] Mar, [facility] [address] [id number] [address] [place] [id number] Jan, [facility] [address] [id number] [address] [place] [address] Dec, [facility] [address] [id number] [address] [place] [id number] 13 Dec, 2010 [facility] [address] [id number] [address] [place] [address], [place] [address] October, [facility] [address] [id number] [address] [place] [address], [place] [address] 20 Sep, 2010 [facility] [address] [id number] [address] [place] [address], [place] [address] 14 Sep, 2010 [facility] [address] [id number] [address] [place] [address], [place] [address] 17 Jul, 2010 [facility] [address] [id number] [address] [place] [address], [place] [address] 16 Jul, 2010 [facility] [address] [id number] [address] [place] [address], [place] [address] 31 May, 2010 [facility] [address] [id number] [address] [place] [address], [place] [address] May, [facility] [address] [id number] [address] [place] [address], [place] [address] May, [facility] [address] [id number] [address] [place] [address], [place] [address] 06 May, 2010 [facility] [address] [id number] [address] [place] [address], [place] [address] Apr, [facility] [address] [id number] [address] [place] [address], [place] [address] Apr, [facility] [address] [id number] [address] [place] [address], [place] [address] Apr, [facility] [address] [id number] [address] [place] [address], [place] [address] Apr, [facility] [address] [id number] [address] [place] [address], [place] [address] Apr, [facility] [address] [id number] [address] [place] [address], [place] [address] Mar, [facility] [address] [id number] [address] [place] [address], [place] [address] 14 Mar, 2010 [facility] [address] [id number] [address] [place] [address], [place] [address] 13 Mar, 2010 [facility] [address] [id number] [address] [place] [address], [place] [address] 12 Mar, 2010 [facility] [address] [id number] [address] [place] [address], [place] [address] 20 Jan, 2010 [facility] [address] [id number] [address] [place] [address], [place] [address] 15 Dec, 2009 [facility] [address] [id number] [address] [place] [address], [place] [address] 10 Sep, 2009 [facility] [address] [id number] [address] [place] [address], [place] [address] 08 May, 2009 [facility] [address] [id number] [address] [place] [address], [place] [address] 06 May, 2009 [facility] [address] [id number] [address] [place] [address], [place] [address] 02 May, 2009 [facility] [address] [id number] [address] [place] [address], [place] [address] 17 Apr, 2009 [facility] [address] [id number] [address] [place] [address], [place] [address] 17 Apr, 2009 [facility] [address] [id number] [address] [place] [address], [place] [address] 10 Apr, 2009 [facility] [address] [id number] [address] [place] [address], [place] [address] 10 Apr, 2009 [facility] [address] [id number] [address] [place] [address], [place] [address] 09 Apr, 2009 [facility] [address] [id number] [address] [place] [id number] 15 Mar, 2009 [facility] [address] [id number] [address] [place] [id number] Mar, [facility] [address] [facility] [id number] [address] [place] [address] Jul, IMMUNIZATIONS No Known Immunizations SOCIAL HISTORY Never Assessed REASON FOR VISIT PLAN OF CARE VITAL SIGNS MEDICATIONS Unknown Medications RESULTS No Results PROCEDURES No Known procedures INSTRUCTIONS MEDICATIONS ADMINISTERED No Known Medications MEDICAL (GENERAL) HISTORY Type Description Date Medical History asthma Medical History gastrointestinal disorder- c hronic pancreatitis, chronic constipation, gastritis Medical History chronic abdominal pain Medical History , hirsutism Medical History neurological disorder- mild sleep apnea (Dr. Jules), possible RLS Medical History headache syndrome Medical History psychiatric disorder--depression Medical History metabolic disorder- vitamin D deficiency Medical History Left kidney clear cell carcinoma Medical History DVT left arm Medical History Obesity Medical History carpal tunal/ possible pinch ed nerves causing tingling in the arms. Medical History kidney cancer stage 3/ removed left kidn ey 2016 Medical History thoracic outlet syndrome Surgical History arthroscopic knee surgery- D r Reveal x6 billaterally tear currently on the right knee Surgical History tonsillectomy and adnoidectomy Surgical History appendectomy Surgical History hysterectomy- total d/t endometriosis Dr Bowen Baez 2012 Surgical History orthopedic surgery-coccyx removal w/ Dr Figueroa 08/2013 Surgical History cholecystectomy Surgical History Right knee scope- Dr. Gonzalez 11/2015 Surgical History right knee scope 05/2016 Surgical History abdominal cyst removed Surgical History Ovaries removed Surgical History Ts & As Surgical History ventral incisional hernia repair- Dr. Reno mueller 08/2017 Surgical History nephrectomy/ Left Kidney 03/[address] Roman-drained fluid and tissue removal from where she had her hernia placed-had a drain placed 01/2018 Surgical History had drain removed from surgery the [facility] before. 03/2018 Surgical History mesh removed and replaced [facility] 10/2018 Hospitalization History Cellulitis-[facility] Hospitalization History [facility] [place]- Abd pain 03/07/2017 Hospitalization History [facility] [place]- Abd pain 03/14/2017 Hospitalization History [facility] [place]- No bowel movement, rash 04/13/2017 Hospitalization History [facility] [place]- Abd pain r/ t kidney surgery on 04/10/17 04/17/2017 Hospitalization History [facility] [place]- Abd pain r/ t kidney surgery on 04/10/17 04/18/2017 Hospitalization History [facility] [place]- Lower abd pain 04/17 Hospitalization History [facility] [place]- Cannot urinate 05/17 Hospitalization History [facility]- Pancreatitis Sx Hospitalization History [facility]- Stomach pain 2017 Hospitalization History [facility]- Left side pain 07/19 Hospitalization History [facility]- Incision site infec tion 08/30/2017 Hospitalization History [facility]- Post Op Serom a/Hematoma Left Abdomen. Discharged 09/04/17- Dr Daniel 09/02/2017 Hospitalization History [facility]- Right shoulder and back pain 10/22/2017 Hospitalization History [facility]- Shoulder/Back pain 11/11/2017 Hospitalization History [facility]- Right shoulder blad e pain 12/04/2017 Hospitalization History [facility]- C-Diff 12/13/2017 Hospitalization History C diff et MRSA 12/27/2017 Hospitalization History [facility] Bowel Obstruction 10/2018 Hospitalization History [facility]- Abdominal pain and nausea 01/08/2019
--- OUTSIDE RECORDS SUMMARY | 2019-10-17 05:06 | XMS REPORT ---
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 unspecified wrist M2 5.539 and Back pain, thoracic M54.6 [facility] [place] [address] [id number] [address] [place] [address] 13 Jun, 2015 Strain of right wrist, initi al encounter S66.911A [place] [address] [id number] [address] [place] [address] Jun, Chronic pancreatitis, unspec ified pancreatitis type K86.1 ; Hirsuties L68.0 ; Morbid (severe) obesity due to excess calories E66.01 ; Chronic pancreatitis K86.1 and Asthma J45.909 [facility] [address] [facility] [id number] [address] [place] [address] May, [facility] [address] [place] [id number] [address] [place] [address] May, Hyperlipidemia, mixed E78.2 and Muscle spasm of back M62.830 [facility] [address] [place] [id number] [address] [place] [address] Apr, [facility] [address] [place] [id number] [place] [address] Apr, Torticollis M43.6 [facility] [address] [place] [id number] [address] [place] [address] Apr, Right-sided thoracic back pa in M54.6 [facility] [address] [place] [id number] [address] [place] [address] Mar, Rash R21 [facility] [address] [place] [id number] [place] [address] Mar, [facility] [address] [place] [id number] [address] [place] [address] Jan, [facility] [address] [place] [id number] [address] [place] [address] Dec, [facility] [address] [place] [id number] [address] [place] [address] Dec, Urinary frequency 788.41 and Nocturia more than twice per night 788.43 [facility] [address] [place] [id number] [address] [place] [address] Nov, [facility] [address] [place] [id number] [address] [place] [address] Nov, [facility] [address] [place] [id number] [place] [address] Nov, Abdominal pain 789.00 [facility] [address] [id number] [address] [place] [address] October, TDAP DX V06.1 [facility] [address] [id number] [address] [place] [address] October, [facility] [address] [id number] [address] [place] [address] October, Disturbance of skin sensatio n 782.0 ; Wrist pain, right 719.43 ; Hyperlipidemia 272.4 and Skin lesion of face 709.9 [facility] [address] [id number] [address] [place] [address] Sep, [facility] [address] [id number] [address] [place] [address] Sep, [facility] [address] [id number] [address] [place] [address] Aug, [facility] [address] [id number] [address] [place] [address] Aug, [facility] [address] [id number] [address] [place] [address] Aug, [facility] [address] [id number] [address] [place] [address] 23 Aug, 2014 [facility] [address] [id number] [address] [place] [address] 16 Aug, 2014 [facility] [address] [id number] [address] [place] [address] 16 Aug, 2014 [facility] [address] [id number] [address] [place] [address] 14 Aug, 2014 [facility] [address] [id number] [address] [place] [address] 14 Aug, 2014 [facility] [address] [id number] [address] [place] [address] [place] [address] Aug, [facility] [address] [id number] [address] [place] [address], [place] [address] Aug, [facility] [address] [id number] [address] [place] [address], [place] [address] Aug, [facility] [address] [id number] [address] [place] [address], [place] [address] Aug, [facility] [address] [id number] [address] [place] [address], [place] [address] Aug, [facility] [address] [id number] [address] [place] [address], [place] [address] Aug, [facility] [address] [id number] [address] [place] [address], [place] [address] Jul, [facility] [address] [id number] [address] [place] [address], [place] [address] Jul, 2014 [facility] [address] [id number] [address] [place] [address], [place] [address] Jul, [facility] [address] [id number] [address] [place] [address], [place] [address] Jul, [facility] [address] [id number] [address] [place] [address], [place] [address] Jul, [facility] [address] [id number] [address] [place] [address], [place] [address] Jul, [facility] [address] [id number] [address] [place] [address], [place] [address] Jun, [facility] [address] [id number] [address] [place] [address], [place] [address] Jun, [facility] [address] [id number] [address] [place] [address], [place] [address] Jun, [facility] [address] [id number] [address] [place] [address], [place] [address] Jun, [facility] [address] [id number] [address] [place] [address], [place] [address] Jun, [facility] [address] [id number] [address] [place] [address], [place] [address] Jun, [facility] [address] [id number] [address] [place] [address], [place] [address] 15 Jun, 2014 [facility] [address] [id number] [address] [place] [address], [place] [address] Jun, [facility] [address] [id number] [address] [place] [address], [place] [address] May, [facility] [address] [id number] [address] [place] [address], [place] [address] May, [facility] [address] [id number] [address] [place] [address], [place] [address] May, [facility] [address] [id number] [address] [place] [address], [place] [address] May, [facility] [address] [id number] [address] [place] [address], [place] [address] May, [facility] [address] [id number] [address] [place] [address], [place] [address] May, [facility] [address] [id number] [address] [place] [address], [place] [address] May, [facility] [address] [id number] [address] [place] [address], [place] [address] May, [facility] [address] [id number] [address] [place] [address], [place] [address] May, [facility] [address] [id number] [address] [place] [address], [place] [address] May, [facility] [address] [id number] [address] [place] [address], [place] [address] May, [facility] [address] [id number] [address] [place] [address] May, [facility] [address] [id number] [address] [place] [address], [place] [address] Apr, [facility] [address] [id number] [address] [place] [address], [place] [address] Apr, [facility] [address] [id number] [address] [place] [address], [place] [address] Apr, [facility] [address] [id number] [address] [place] [address], [place] [address] Apr, [facility] [address] [id number] [address] [place] [address], [place] [address] Apr, [facility] [address] [id number] [address] [place] [address], [place] [address] Apr, [facility] [address] [id number] [address] [place] [address], [place] [address] Apr, [facility] [address] [id number] [address] [place] [address], [place] [address] Apr, [facility] [address] [id number] [address] [place] [address], [place] [address] Apr, [facility] [address] [id number] [address] [place] [address], [place] [address] Apr, [facility] [address] [id number] [address] [place] [address], [place] [address] Apr, [facility] [address] [id number] [address] [place] [address], [place] [address] Apr, [facility] [address] [id number] [address] [place] [address], [place] [address] Mar, [facility] [address] [id number] [address] [place] [address], [place] [address] Mar, [facility] [address] [id number] [address] [place] [address], [place] [address] Mar, [facility] [address] [id number] [facility] [place] [address] Mar, [facility] [address] [id number] [facility] [place] [address] Feb, 2013 [facility] [address] [id number] [facility] [place] [address] Feb, 2013 [facility] [address] [id number] [facility] [place] [address] 05 Feb, 2013 [facility] [address] [id number] [facility] [place] [address] 05 Feb, 2013 [facility] [address] [id number] [address] [place] [address], [place] [address] Feb, 2013 [facility] [address] [id number] [address] [place] [address], [place] [address] Feb, 2013 [facility] [address] [id number] [address] [place] [address], [place] [address] Jan, [facility] [address] [id number] [address] [place] [address], [place] [address] Jan, [facility] [address] [id number] [address] [place] [address], [place] [address] Jan, [facility] [address] [id number] [address] [place] [address], [place] [address] Jan, [facility] [address] [id number] [address] [place] [address], [place] [address] Jan, [facility] [address] [id number] [address] [place] [address], [place] [address] Jan, [facility] [address] [id number] [address] [place] [address], [place] [address] Jan, [facility] [address] [id number] [address] [place] [address], [place] [address] Jan, [facility] [address] [id number] [address] [place] [address], [place] [address] Jan, [facility] [address] [id number] [facility] [address] Jan, [facility] [address] [id number] [address] [place] [address], [place] [address] Jan, [facility] [address] [id number] [facility] [place] [address] Jan, [facility] [address] [id number] [address] [place] [address], [place] [address] Jan, [facility] [address] [id number] [address] [place] [address], [place] [address] Jan, [facility] [address] [id number] [address] [place] [address], [place] [address] Dec, [facility] [address] [id number] [address] [place] [address], [place] [address] Dec, [facility] [address] [id number] [address] [place] [address], [place] [address] Dec, [facility] [address] [id number] [address] [place] [address], [place] [address] Dec, [facility] [address] [id number] [address] [place] [address], [place] [address] Nov, [facility] [address] [id number] [address] [place] [address], [place] [address] Nov, [facility] [address] [id number] [address] [place] [address], [place] [address] Nov, [facility] [address] [id number] [address] [place] [address], [place] [address] Nov, [facility] [address] [id number] [address] [place] [address], [place] [address] Nov, [facility] [address] [id number] [address] [place] [address], [place] [address] October, [facility] [address] [id number] [address] [place] [address], [place] [address] October, [facility] [address] [id number] [address] [place] [address], [place] [address] October, [facility] [address] [id number] [address] [place] [address], [place] [address] October, [facility] [address] [id number] [address] [place] [address], [place] [address] October, [facility] [address] [id number] [address] [place] [address], [place] [address] October, [facility] [address] [id number] [address] [place] [address], [place] [address] October, [facility] [address] [id number] [address] [place] [address], [place] [address] October, [facility] [address] [id number] [address] [place] [address], [place] [address] October, [facility] [address] [id number] [address] [place] [address], [place] [address] October, [facility] [address] [id number] [address] [place] [address], [place] [address] October, [facility] [address] [id number] [address] [place] [address], [place] [address] October, [facility] [address] [id number] [address] [place] [address], [place] [address] October, [facility] [address] [id number] [address] [place] [address], [place] [address] October, [facility] [address] [id number] [address] [place] [address], [place] [address] Sep, [facility] [address] [id number] [address] [place] [address], [place] [address] Sep, [facility] [address] [id number] [address] [place] [address], [place] [address] Sep, [facility] [address] [id number] [facility] [address] 14 Sep, 2013 [facility] [address] [id number] [address] [place] [address], [place] [address] Sep, [facility] [address] [id number] [address] [place] [address], [place] [address] Sep, [facility] [address] [id number] [address] [place] [address], [place] [address] Sep, [facility] [address] [id number] [address] [place] [address], [place] [address] Sep, [facility] [address] [id number] [address] [place] [address], [place] [address] Sep, [facility] [address] [id number] [address] [place] [address], [place] [address] Sep, [facility] [address] [id number] [address] [place] [address], [place] [address] Sep, [facility] [address] [id number] [address] [place] [address], [place] [address] Sep, [facility] [address] [id number] [address] [place] [address], [place] [address] Sep, [facility] [address] [id number] [address] [place] [address], [place] [address] Sep, [facility] [address] [id number] [address] [place] [address], [place] [address] Sep, [facility] [address] [id number] [address] [place] [address], [place] [address] Aug, [facility] [address] [id number] [address] [place] [address], [place] [address] Aug, [facility] [address] [id number] [address] [place] [address], [place] [address] Aug, [facility] [address] [id number] [address] [place] [address], [place] [address] Aug, [facility] [address] [id number] [address] [place] [address], [place] [address] 10 Jul, 2013 [facility] [address] [id number] [address] [place] [address], [place] [address] Jul, [facility] [address] [id number] [address] [place] [address], [place] [address] Jul, [facility] [address] [id number] [address] [place] [address], [place] [address] Jul, [facility] [address] [id number] [address] [place] [address], [place] [address] Jun, [facility] [address] [id number] [address] [place] [address], [place] [address] Jun, [facility] [address] [id number] [address] [place] [address], [place] [address] Jun, [facility] [address] [id number] [address] [place] [address], [place] [address] Jun, [facility] [address] [id number] [address] [place] [address], [place] [address] Jun, [facility] [address] [id number] [address] [place] [address], [place] [address] Jun, [facility] [address] [id number] [address] [place] [address], [place] [address] Jun, [facility] [address] [id number] [address] [place] [address], [place] [address] Jun, [facility] [address] [id number] [address] [place] [address], [place] [address] May, [facility] [address] [id number] [address] [place] [address], [place] [address] May, [facility] [address] [id number] [address] [place] [address], [place] [address] May, [facility] [address] [id number] [address] [place] [address], [place] [address] 18 May, 2013 [facility] [address] [id number] [address] [place] [address], [place] [address] 17 May, 2013 [facility] [address] [id number] [address] [place] [address], [place] [id number] 17 May, 2013 [facility] [address] [id number] [address] [place] [address], [place] [address] 17 May, 2013 [facility] [address] [id number] [address] [place] [address], [place] [address] 17 May, 2013 [facility] [address] [id number] [address] [place] [address], [place] [address] 16 May, 2013 [facility] [address] [id number] [address] [place] [address], [place] [address] 16 May, 2013 [facility] [address] [id number] [address] [place] [address], [place] [address] 14 May, 2013 [facility] [address] [id number] [address] [place] [address], [place] [address] 14 May, 2013 [facility] [address] [id number] [address] [place] [address], [place] [address] 13 May, 2013 [facility] [address] [id number] [address] [place] [address], [place] [address] 13 May, 2013 [facility] [address] [id number] [address] [place] [address], [place] [address] 12 May, 2013 [facility] [address] [id number] [address] [place] [address], [place] [address] 12 May, 2013 [facility] [address] [id number] [address] [place] [address], [place] [address] 11 May, 2013 [facility] [address] [id number] [address] [place] [address], [place] [address] 11 May, 2013 [facility] [address] [id number] [address] [place] [address], [place] [address] Apr, [facility] [address] [id number] [address] [place] [address], [place] [address] Apr, [facility] [address] [id number] [address] [place] [address], [place] [address] Apr, [facility] [address] [id number] [address] [place] [address], [place] [address] Apr, [facility] [address] [id number] [address] [place] [address], [place] [address] Aug, [facility] [address] [id number] [address] [place] [address], [place] [address] Aug, [facility] [address] [id number] [address] [place] [address], [place] [address] Aug, [facility] [address] [id number] [address] [place] [address], [place] [address] Aug, [facility] [address] [id number] [address] [place] [address], [place] [address] Jul, [facility] [address] [id number] [address] [place] [address], [place] [address] Jun, [facility] [address] [id number] [address] [place] [address], [place] [address] Jun, [facility] [address] [id number] [address] [place] [address], [place] [address] Jun, [facility] [address] [id number] [address] [place] [address], [place] [address] Jun, [facility] [address] [id number] [address] [place] [address], [place] [address] May, [facility] [address] [id number] [address] [place] [address], [place] [address] May, [facility] [address] [id number] [address] [place] [address], [place] [address] May, [facility] [address] [id number] [address] [place] [address], [place] [address] May, [facility] [address] [id number] [address] [place] [address], [place] [address] May, [facility] [address] [id number] [address] [place] [address], [place] [address] May, [facility] [address] [id number] [address] [place] [address], [place] [address] May, [facility] [address] [id number] [address] [place] [address], [place] [address] Apr, [facility] [address] [id number] [address] [place] [address], [place] [address] Apr, [facility] [address] [id number] [address] [place] [address], [place] [address] Apr, [facility] [address] [id number] [address] [place] [address], [place] [address] Apr, [facility] [address] [id number] [address] [place] [address], [place] [address] Apr, [facility] [address] [id number] [address] [place] [address], [place] [address] Apr, [facility] [address] [id number] [address] [place] [address], [place] [address] Apr, [facility] [address] [id number] [address] [place] [address], [place] [address] Mar, [facility] [address] [id number] [address] [place] [address] Mar, [facility] [address] [id number] [address] [place] [address] Mar, [facility] [address] [id number] [address] [place] [address] Mar, [facility] [address] [id number] [address] [place] [address] Mar, [facility] [address] [id number] [address] [place] [address], [place] [address] Mar, [facility] [address] [id number] [address] [place] [address], [place] [address] Mar, [facility] [address] [id number] [address] [place] [address], [place] [address] Mar, [facility] [address] [id number] [address] [place] [address], [place] [address] Mar, [facility] [address] [id number] [address] [place] [address], [place] [address] Mar, [facility] [address] [id number] [address] [place] [address], [place] [address] Mar, [facility] [address] [id number] [address] [place] [address], [place] [address] Mar, [facility] [address] [id number] [address] [place] [address], [place] [address] Feb, [facility] [address] [id number] [address] [place] [address], [place] [address] Jan, [facility] [address] [id number] [address] [place] [address], [place] [address] Jan, [facility] [address] [id number] [address] [place] [address], [place] [address] Jan, [facility] [address] [id number] [address] [place] [address], [place] [address] Jan, [facility] [address] [id number] [address] [place] [address], [place] [address] Jan, [facility] [address] [id number] [address] [place] [address], [place] [address] Dec, [facility] [address] [id number] [address] [place] [address], [place] [address] Dec, [facility] [address] [id number] [address] [place] [address], [place] [address] Nov, [facility] [address] [id number] [address] [place] [address], [place] [address] Nov, [facility] [address] [id number] [address] [place] [address], [place] [address] Nov, [facility] [address] [id number] [address] [place] [address], [place] [address] October, [facility] [address] [id number] [address] [place] [address], [place] [address] October, [facility] [address] [id number] [address] [place] [address], [place] [address] October, [facility] [address] [id number] [address] [place] [address], [place] [address] October, [facility] [address] [id number] [address] [place] [address], [place] [address] October, [facility] [address] [id number] [address] [place] [address], [place] [address] October, [facility] [address] [id number] [address] [place] [address], [place] [address] October, [facility] [address] [id number] [address] [place] [address], [place] [address] Sep, [facility] [address] [id number] [address] [place] [address], [place] [address] Sep, [facility] [address] [id number] [address] [place] [address], [place] [address] Sep, [facility] [address] [id number] [address] [place] [address], [place] [address] Sep, [facility] [address] [id number] [address] [place] [address], [place] [address] Sep, [facility] [address] [id number] [address] [place] [address], [place] [address] Sep, [facility] [address] [id number] [address] [place] [address], [place] [address] 17 Sep, 2011 [facility] [address] [id number] [address] [place] [address], [place] [address] 16 Sep, 2011 [facility] [address] [id number] [address] [place] [address], [place] [address] 16 Sep, 2011 [facility] [address] [id number] [address] [place] [address], [place] [address] 14 Sep, 2011 [facility] [address] [id number] [address] [place] [address], [place] [address] 13 Sep, 2011 [facility] [address] [id number] [address] [place] [address], [place] [address] 10 Sep, 2011 [facility] [address] [id number] [address] [place] [address], [place] [address] 09 Sep, 2011 [facility] [address] [id number] [address] [place] [address], [place] [address] 27 Aug, 2011 [facility] [address] [id number] [address] [place] [address], [place] [address] 12 Aug, 2011 [facility] [address] [id number] [address] [place] [address], [place] [address] 08 Aug, 2011 [facility] [address] [id number] [address] [place] [address], [place] [address] 06 Aug, 2011 [facility] [address] [id number] [address] [place] [address], [place] [address] 28 Jul, 2011 [facility] [address] [id number] [address] [place] [address], [place] [address] 22 Jul, 2011 [facility] [address] [id number] [address] [place] [address], [place] [address] 16 Jul, 2011 [facility] [address] [id number] [address] [place] [address], [place] [address] 15 Jul, 2011 [facility] [address] [id number] [address] [place] [address], [place] [address] 14 Jul, 2011 [facility] [address] [id number] [address] [place] [address], [place] [address] 10 Jul, 2011 [facility] [address] [id number] [address] [place] [address], [place] [address] Jun, [facility] [address] [id number] [address] [place] [address], [place] [address] Jun, [facility] [address] [id number] [address] [place] [address], [place] [address] Jun, [facility] [address] [id number] [address] [place] [address], [place] [address] Jun, [facility] [address] [id number] [address] [place] [address], [place] [address] Jun, [facility] [address] [id number] [address] [place] [address], [place] [address] May, [facility] [address] [id number] [address] [place] [address], [place] [address] May, [facility] [address] [id number] [address] [place] [address], [place] [address] May, [facility] [address] [id number] [address] [place] [address], [place] [address] May, [facility] [address] [id number] [address] [place] [address], [place] [address] May, [facility] [address] [id number] [address] [place] [address], [place] [address] May, [facility] [address] [id number] [address] [place] [address], [place] [address] 05 May, 2011 [facility] [address] [id number] [address] [place] [address], [place] [address] 15 Apr, 2011 [facility] [address] [id number] [address] [place] [address], [place] [address] Apr, [facility] [address] [id number] [address] [place] [address], [place] [address] 07 Apr, 2011 [facility] [address] [id number] [address] [place] [address], [place] [address] Apr, [facility] [address] [id number] [address] [place] [address], [place] [address] Apr, [facility] [address] [id number] [address] [place] [address], [place] [address] Apr, [facility] [address] [id number] [address] [place] [address], [place] [address] Mar, [facility] [address] [id number] [address] [place] [address], [place] [address] Mar, [facility] [address] [id number] [address] [place] [address], [place] [address] Mar, [facility] [address] [id number] [address] [place] [address], [place] [address] Mar, [facility] [address] [id number] [address] [place] [address], [place] [address] Jan, [facility] [address] [id number] [address] [place] [address], [place] [address] Dec, [facility] [address] [id number] [address] [place] [address], [place] [address] Dec, [facility] [address] [id number] [address] [place] [address], [place] [address] October, [facility] [address] [id number] [address] [place] [address], [place] [address] Sep, [facility] [address] [id number] [address] [place] [address], [place] [address] 14 Sep, 2010 [facility] [address] [id number] [address] [place] [address], [place] [phone] 17 Jul, 2010 [facility] [address] [id number] [address] [place] [address], [place] [address] 16 Jul, 2010 [facility] [address] [id number] [address] [place] [address], [place] [phone] 31 May, 2010 [facility] [address] [id number] [address] [place] [address], [place] [phone] May, [facility] [address] [id number] [address] [place] [address], [place] [address] May, [facility] [address] [id number] [address] [place] [address], [place] [address] May, [facility] [address] [id number] [address] [place] [address], [place] [phone] Apr, [facility] [address] [id number] [address] [place] [address], [place] [address] Apr, [facility] [address] [id number] [address] [place] [address], [place] [address] Apr, [facility] [address] [id number] [address] [place] [phone] Apr, [facility] [address] [id number] [address] [place] [address], [place] [address] Apr, [facility] [address] [id number] [address] [place] [phone] Mar, [facility] [address] [id number] [address] [place] [id number] 14 Mar, 2010 [facility] [address] [id number] [address] [place] [phone] 13 Mar, 2010 [facility] [address] [id number] [address] [place] [phone] Mar, [facility] [address] [id number] [address] [place] [phone] Jan, [facility] [address] [id number] [address] [place] [phone] 15 Dec, 2009 [facility] [address] [id number] [address] [place] [phone] Sep, [facility] [address] [id number] [address] [place] [phone] May, [facility] [address] [id number] [address] [place] [phone] May, [facility] [address] [id number] [address] [place] [phone] May, [facility] [address] [id number] [address] [place] [phone] Apr, [facility] [address] [id number] [address] [place] [phone] Apr, [facility] [address] [id number] [address] [place] [phone] Apr, [facility] [address] [facility] [id number] [address] [place] [phone] Apr, [facility] [address] [id number] [address] [place] [phone] Apr, [facility] [address] [facility] [id number] [address] [place] [phone] Mar, [facility] [address] [id number] [address] [place] [phone] Mar, [facility] [address] [facility] [id number] [address] [place] [phone] Jul, IMMUNIZATIONS No Known Immunizations SOCIAL HISTORY [...] History had drain removed from surgery the Augus t before. 03/2018 Surgical History mesh removed and replaced VC 10/2018 Hospitalization History [facility] Hospitalization [facility]- Abd pain 03/07/2017 Hospitalization History [facility]- Abd pain 03/14/2017 Hospitalization History [facility]- No bowel movement, rash 04/13/2017 Hospitalization History [facility]- Abd pain r/ t kidney surgery on 04/10/17 04/17/2017 Hospitalization History [facility]- Abd pain r/ t kidney surgery on 04/10/17 04/18/2017 Hospitalization History [facility]- Lower abd pain 04/17 Hospitalization History [facility]- Cannot urinate 05/17 Hospitalization History [facility]- Pancreatitis Sx Hospitalization History [facility]- Stomach pain 2017 Hospitalization History [facility]- Left side pain 07/19 Hospitalization History [facility]- Incision site infec tion 08/30/2017 Hospitalization History [facility]- Post Op Serom a/Hematoma Left Abdomen. Discharged 09/04/17- Dr Daniel 09/02/2017 Hospitalization History [facility]- Right shoulder and back pain 10/22/2017 Hospitalization History [facility]- Shoulder/Back pain 11/11/2017 Hospitalization History [facility]- Right shoulder blad e pain 12/04/2017 Hospitalization History [facility]- C-Diff 12/13/2017 Hospitalization History C diff et MRSA 12/27/2017 Hospitalization History [facility] Bowel Obstruction 10/2018 Hospitalization History [facility]- Abdominal pain and nausea 01/08/2019
--- OUTSIDE RECORDS SUMMARY | 2019-10-17 05:06 | XMS REPORT ---
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 [address] 07 Aug, 2015 [place] [address] [facility] [id number] [address] [place] [address] 04 Aug, 2015 [facility] WALK IN [place] [address] [facility] [id number] [address] [place] [phone] 04 Jul, 2015 Pain in unspecified wrist M2 5.539 and Back pain, thoracic M54.6 [facility] WALK IN [place] [address] [id number] [address] [place] [address] 13 Jun, 2015 Strain of right wrist, initi al encounter S66.911A [place] [address] [facility] [id number] [address] [place] [address] 11 Jun, 2015 Chronic pancreatitis, unspec ified pancreatitis type K86.1 ; Hirsuties L68.0 ; Morbid (severe) obesity due to excess calories E66.01 ; Chronic pancreatitis K86.1 and Asthma J45.909 [facility] [address] [place] [id number] [address] [place] [phone] May, [facility] [address] [place] [id number] [place] [id number] May, Hyperlipidemia, mixed E78.2 and Muscle spasm of back M62.830 [facility] [address] [place] [id number] [address] [place] [address] Apr, [facility] [address] [place] [id number] [place] [phone] Apr, Torticollis M43.6 [facility] [address] [place] [id number] [place] [phone] Apr, Right-sided thoracic back pa in M54.6 [facility] [address] [address] Mar, Rash R21 [facility] [address] [place] [id number] [address] [place] [address] Mar, [facility] [address] [place] [id number] [place] [phone] Jan, [facility] [address] [place] [id number] [place] [phone] Dec, [facility] [address] [place] [id number] [place] [address] Dec, Urinary frequency 788.41 and Nocturia more than twice per night 788.43 [facility] [address] [place] [id number] [place] [address] Nov, [facility] [address] [place] [id number] [place] [address] Nov, [facility] [address] [place] [id number] [place] [address] Nov, Abdominal pain 789.00 [facility] [address] [id number] [address] [place] [id number] October, TDAP DX V06.1 [facility] [address] [id number] [address] [place] [address] October, [facility] [address] [id number] [address] [place] [phone] October, Disturbance of skin sensatio n 782.0 ; Wrist pain, right 719.43 ; Hyperlipidemia 272.4 and Skin lesion of face 709.9 [facility] [address] [id number] [address] [place] [address], [place] [address] Sep, [facility] [address] [id number] [address] [place] [address] Sep, [facility] [address] [id number] [address] [place] [phone] Aug, [facility] [address] [id number] [address] [place] [address] Aug, [facility] [address] [id number] [address] [place] [phone] Aug, [facility] [address] [id number] [address] [place] [phone] Aug, [facility] [address] [id number] [address] [place] [phone] 16 Aug, 2014 [facility] [address] [id number] [address] [place] [address] 16 Aug, 2014 [facility] [address] [id number] [address] [place] [phone] 14 Aug, 2014 [facility] [address] [id number] [address] [place] [phone] 14 Aug, 2014 [facility] [address] [id number] [address] [place] [phone] 11 Aug, 2014 [facility] [address] [id number] [address] [place] [address] [place] [address] Aug, [facility] [address] [id number] [address] [place] [address], [place] [address] Aug, [facility] [address] [id number] [address] [place] [address], [place] [address] Aug, [facility] [address] [id number] [address] [place] [address], [place] [address] Aug, [facility] [address] [id number] [address] [place] [address], [place] [address] Aug, [facility] [address] [id number] [address] [place] [address], [place] [address] Jul, [facility] [address] [id number] [address] [place] [address], [place] [address] Jul, [facility] [address] [id number] [address] [place] [address], [place] [address] Jul, [facility] [address] [id number] [address] [place] [address], [place] [address] Jul, [facility] [address] [id number] [address] [place] [address], [place] [address] Jul, [facility] [address] [id number] [address] [place] [address], [place] [address] Jul, [facility] [address] [id number] [address] [place] [address], [place] [address] Jun, [facility] [address] [id number] [address] [place] [address], [place] [address] Jun, [facility] [address] [id number] [address] [place] [address], [place] [address] Jun, [facility] [address] [id number] [address] [place] [address], [place] [address] Jun, [facility] [address] [id number] [address] [place] [phone] Jun, [facility] [address] [id number] [address] [place] [address], [place] [address] 19 Jun, 2014 [facility] [address] [id number] [address] [place] [address], [place] [address] 15 Jun, 2014 [facility] [address] [id number] [address] [place] [address], [place] [address] 15 Jun, 2014 [facility] [address] [id number] [address] [place] [address], [place] [address] May, [facility] [address] [id number] [address] [place] [address], [place] [address] May, [facility] [address] [id number] [address] [place] [address], [place] [address] May, [facility] [address] [id number] [address] [place] [address], [place] [address] May, [facility] [address] [id number] [address] [place] [address], [place] [address] May, [facility] [address] [id number] [address] [place] [address], [place] [address] May, [facility] [address] [id number] [address] [place] [address], [place] [address] May, [facility] [address] [id number] [address] [place] [address], [place] [address] May, [facility] [address] [id number] [address] [place] [address], [place] [address] May, [facility] [address] [id number] [address] [place] [address], [place] [address] May, [facility] [address] [id number] [address] [place] [address], [place] [address] May, [facility] [address] [id number] [address] [place] [address], [place] [address] May, [facility] [address] [id number] [address] [place] [address], [place] [address] Apr, [facility] [address] [id number] [address] [place] [address], [place] [address] Apr, [facility] [address] [id number] [address] [place] [address], [place] [address] Apr, [facility] [address] [id number] [address] [place] [address], [place] [address] Apr, [facility] [address] [id number] [address] [place] [address], [place] [address] Apr, [facility] [address] [id number] [address] [place] [address], [place] [address] Apr, [facility] [address] [id number] [address] [place] [address], [place] [address] Apr, [facility] [address] [id number] [address] [place] [address], [place] [address] Apr, [facility] [address] [id number] [address] [place] [address], [place] [address] Apr, [facility] [address] [id number] [address] [place] [address], [place] [address] Apr, [facility] [address] [id number] [address] [place] [address], [place] [address] Apr, [facility] [address] [id number] [address] [place] [address], [place] [address] Apr, [facility] [address] [id number] [address] [place] [address], [place] [address] Mar, [facility] [address] [id number] [address] [place] [address], [place] [address] Mar, [facility] [address] [id number] [address] [place] [address], [place] [address] Mar, [facility] [address] [id number] [address] [place] [address], [place] [address] Mar, [facility] [address] [id number] [address] [place] [address] 10 Feb, 2013 [facility] [address] [id number] [address] [place] [address] 10 Feb, 2013 [facility] [address] [id number] [address] [place] [address] 05 Feb, 2013 [facility] [address] [id number] [address] [place] [address] 05 Feb, 2013 [facility] [address] [id number] [address] [place] [address] 05 Feb, 2013 [facility] [address] [id number] [address] [place] [address] Feb, 2013 [facility] [address] [id number] [address] [place] [address], [place] [address] Jan, [facility] [address] [id number] [address] [place] [address], [place] [address] Jan, [facility] [address] [id number] [address] [place] [address], [place] [address] Jan, [facility] [address] [id number] [address] [place] [address], [place] [address] Jan, [facility] [address] [id number] [address] [place] [address], [place] [address] Jan, [facility] [address] [id number] [address] [place] [address], [place] [address] Jan, [facility] [address] [id number] [address] [place] [address], [place] [address] Jan, [facility] [address] [id number] [address] [place] [address], [place] [address] Jan, [facility] [address] [id number] [address] [place] [address], [place] [address] Jan, [facility] [address] [id number] [address] [place] [address], [place] [address] Jan, [facility] [address] [id number] [address] [place] [address] Jan, [facility] [address] [id number] [address] [place] [address] Jan, [facility] [address] [id number] [address] [place] [address] Jan, [facility] [address] [id number] [address] [place] [address], [place] [address] Jan, [facility] [address] [id number] [address] [place] [place] [address], [place] [address] Dec, [facility] [address] [id number] [address] [place] [address], [place] [address] Dec, [facility] [address] [id number] [address] [place] [address], [place] [address] Dec, [facility] [address] [id number] [address] [place] [address], [place] [address] Dec, [facility] [address] [id number] [address] [place] [address], [place] [address] Nov, [facility] [address] [id number] [address] [place] [address], [place] [address] Nov, [facility] [address] [id number] [address] [place] [address], [place] [address] Nov, [facility] [address] [id number] [address] [place] [address], [place] [address] Nov, [facility] [address] [id number] [address] [place] [address], [place] [address] Nov, [facility] [address] [id number] [address] [place] [address], [place] [address] October, [facility] [address] [id number] [address] [place] [address], [place] [address] October, [facility] [address] [id number] [address] [place] [address], [place] [address] October, [facility] [address] [id number] [address] [place] [address], [place] [address] October, [facility] [address] [id number] [address] [place] [address], [place] [address] October, [facility] [address] [id number] [address] [place] [address], [place] [address] October, [facility] [address] [id number] [address] [place] [address], [place] [address] October, [facility] [address] [id number] [address] [place] [address], [place] [address] October, [facility] [address] [id number] [address] [place] [address], [place] [address] October, [facility] [address] [id number] [address] [place] [address], [place] [address] October, [facility] [address] [id number] [address] [place] [address], [place] [address] October, [facility] [address] [id number] [address] [place] [address], [place] [address] October, [facility] [address] [id number] [address] [place] [address], [place] [address] October, [facility] [address] [id number] [address] [place] [address], [place] [address] October, [facility] [address] [id number] [address] [place] [address], [place] [address] Sep, [facility] [address] [id number] [address] [place] [address], [place] [address] Sep, [facility] [address] [id number] [address] [place] [address], [place] [address] Sep, [facility] [address] [id number] [address] [place] [address], [place] [address] Sep, [facility] [address] [id number] [facility] [place] [address] Sep, [facility] [address] [id number] [facility] [place] [address] Sep, [facility] [address] [id number] [address] [place] [address], [place] [address] Sep, [facility] [address] [id number] [address] [place] [address], [place] [address] Sep, [facility] [address] [id number] [address] [place] [address], [place] [address] Sep, [facility] [address] [id number] [address] [place] [address], [place] [address] Sep, [facility] [address] [id number] [address] [place] [address], [place] [address] Sep, [facility] [address] [id number] [address] [place] [address], [place] [address] Sep, [facility] [address] [id number] [address] [place] [address], [place] [address] Sep, [facility] [address] [id number] [address] [place] [address], [place] [address] Sep, [facility] [address] [id number] [address] [place] [address], [place] [address] Sep, [facility] [address] [id number] [address] [place] [address], [place] [address] Aug, [facility] [address] [id number] [address] [place] [address], [place] [address] Aug, [facility] [address] [id number] [address] [place] [address], [place] [address] Aug, [facility] [address] [id number] [address] [place] [address], [place] [address] Aug, [facility] [address] [id number] [address] [place] [address], [place] [address] 10 Jul, 2013 [facility] [address] [id number] [address] [place] [address], [place] [address] Jul, [facility] [address] [id number] [address] [place] [address], [place] [address] Jul, [facility] [address] [id number] [address] [place] [address], [place] [address] Jul, [facility] [address] [id number] [address] [place] [address], [place] [address] Jun, [facility] [address] [id number] [address] [place] [address], [place] [address] Jun, [facility] [address] [id number] [address] [place] [address], [place] [address] Jun, [facility] [address] [id number] [address] [place] [address], [place] [address] Jun, [facility] [address] [id number] [address] [place] [address], [place] [address] Jun, [facility] [address] [id number] [address] [place] [address], [place] [address] Jun, [facility] [address] [id number] [address] [place] [address], [place] [address] Jun, [facility] [address] [id number] [address] [place] [address], [place] [address] Jun, [facility] [address] [id number] [address] [place] [address], [place] [address] May, [facility] [address] [id number] [address] [place] [address], [place] [address] May, [facility] [address] [id number] [address] [place] [address], [place] [address] May, [facility] [address] [id number] [address] [place] [address], [place] [address] May, [facility] [address] [id number] [address] [place] [address], [place] [address] 17 May, 2013 [facility] [address] [id number] [address] [place] [address], [place] [id number] 17 May, 2013 [facility] [address] [id number] [address] [place] [address], [place] [address] 17 May, 2013 [facility] [address] [id number] [address] [place] [address], [place] [address] 17 May, 2013 [facility] [address] [id number] [address] [place] [address], [place] [address] 16 May, 2013 [facility] [address] [id number] [address] [place] [address], [place] [address] 16 May, 2013 [facility] [address] [id number] [address] [place] [address], [place] [address] 14 May, 2013 [facility] [address] [id number] [address] [place] [address], [place] [address] 14 May, 2013 [facility] [address] [id number] [address] [place] [address], [place] [address] 13 May, 2013 [facility] [address] [id number] [address] [place] [address], [place] [address] 13 May, 2013 [facility] [address] [id number] [address] [place] [address], [place] [address] 12 May, 2013 [facility] [address] [id number] [address] [place] [address], [place] [address] 12 May, 2013 [facility] [address] [id number] [address] [place] [address], [place] [address] 11 May, 2013 [facility] [address] [id number] [address] [place] [address], [place] [address] 11 May, 2013 [facility] [address] [id number] [address] [place] [address], [place] [address] 26 Apr, 2013 [facility] [address] [id number] [address] [place] [address], [place] [address] Apr, [facility] [address] [id number] [address] [place] [address], [place] [address] Apr, [facility] [address] [id number] [address] [place] [address], [place] [address] Apr, [facility] [address] [id number] [address] [place] [address], [place] [address] Aug, [facility] [address] [id number] [address] [place] [address], [place] [address] Aug, [facility] [address] [id number] [address] [place] [address], [place] [address] Aug, [facility] [address] [id number] [address] [place] [address], [place] [address] Aug, [facility] [address] [id number] [address] [place] [address], [place] [address] Jul, [facility] [address] [id number] [address] [place] [address], [place] [address] Jun, [facility] [address] [id number] [address] [place] [address], [place] [address] Jun, [facility] [address] [id number] [address] [place] [address], [place] [address] Jun, [facility] [address] [id number] [address] [place] [address], [place] [address] Jun, [facility] [address] [id number] [address] [place] [address], [place] [address] May, [facility] [address] [id number] [address] [place] [address], [place] [address] May, [facility] [address] [id number] [address] [place] [address], [place] [address] May, [facility] [address] [id number] [address] [place] [address], [place] [address] May, [facility] [address] [id number] [address] [place] [address], [place] [address] May, [facility] [address] [id number] [address] [place] [address], [place] [address] May, [facility] [address] [id number] [address] [place] [address], [place] [address] May, [facility] [address] [id number] [address] [place] [address], [place] [address] Apr, [facility] [address] [id number] [address] [place] [address], [place] [address] Apr, [facility] [address] [id number] [address] [place] [address], [place] [address] Apr, [facility] [address] [id number] [address] [place] [address], [place] [address] Apr, [facility] [address] [id number] [address] [place] [address], [place] [address] Apr, [facility] [address] [id number] [address] [place] [address], [place] [address] Apr, [facility] [address] [id number] [address] [place] [address], [place] [address] Apr, [facility] [address] [id number] [address] [place] [address] Mar, [facility] [address] [id number] [address] [place] [address], [place] [address] Mar, [facility] [address] [id number] [address] [place] [address] Mar, [facility] [address] [id number] [address] [place] [address] Mar, [facility] [address] [id number] [address] [place] [address] Mar, [facility] [address] [id number] [address] [place] [address] Mar, [facility] [address] [id number] [address] [place] [address], [place] [address] Mar, [facility] [address] [id number] [address] [place] [address], [place] [address] Mar, [facility] [address] [id number] [address] [place] [address], [place] [address] Mar, [facility] [address] [id number] [address] [place] [address], [place] [address] Mar, [facility] [address] [id number] [address] [place] [address], [place] [address] Mar, [facility] [address] [id number] [address] [place] [address], [place] [address] Mar, [facility] [address] [id number] [address] [place] [address], [place] [address] Feb, [facility] [address] [id number] [address] [place] [address], [place] [address] Jan, [facility] [address] [id number] [address] [place] [address], [place] [address] Jan, [facility] [address] [id number] [address] [place] [address], [place] [address] Jan, [facility] [address] [id number] [address] [place] [address], [place] [address] Jan, [facility] [address] [id number] [address] [place] [address], [place] [address] Jan, [facility] [address] [id number] [address] [place] [address], [place] [address] Dec, [facility] [address] [id number] [address] [place] [address], [place] [address] Dec, [facility] [address] [id number] [address] [place] [address], [place] [address] Nov, [facility] [address] [id number] [address] [place] [address], [place] [address] Nov, [facility] [address] [id number] [address] [place] [address], [place] [address] Nov, [facility] [address] [id number] [address] [place] [address], [place] [address] October, [facility] [address] [id number] [address] [place] [address], [place] [address] October, [facility] [address] [id number] [address] [place] [address], [place] [address] October, [facility] [address] [id number] [address] [place] [address], [place] [address] October, [facility] [address] [id number] [address] [place] [address], [place] [address] October, [facility] [address] [id number] [address] [place] [address], [place] [address] October, [facility] [address] [id number] [address] [place] [address], [place] [address] October, [facility] [address] [id number] [address] [place] [address], [place] [address] Sep, [facility] [address] [id number] [address] [place] [address], [place] [address] Sep, [facility] [address] [id number] [address] [place] [address], [place] [address] Sep, [facility] [address] [id number] [address] [place] [address], [place] [address] Sep, [facility] [address] [id number] [address] [place] [address], [place] [address] 24 Sep, 2011 [facility] [address] [id number] [address] [place] [address], [place] [address] 19 Sep, 2011 [facility] [address] [id number] [address] [place] [address], [place] [address] 17 Sep, 2011 [facility] [address] [id number] [address] [place] [address], [place] [address] 16 Sep, 2011 [facility] [address] [id number] [address] [place] [address], [place] [address] 16 Sep, 2011 [facility] [address] [id number] [address] [place] [address], [place] [address] 14 Sep, 2011 [facility] [address] [id number] [address] [place] [address], [place] [address] 13 Sep, 2011 [facility] [address] [id number] [address] [place] [address], [place] [address] 10 Sep, 2011 [facility] [address] [id number] [address] [place] [address], [place] [address] 09 Sep, 2011 [facility] [address] [id number] [address] [place] [address], [place] [address] 27 Aug, 2011 [facility] [address] [id number] [address] [place] [address], [place] [address] 12 Aug, 2011 [facility] [address] [id number] [address] [place] [address], [place] [address] 08 Aug, 2011 [facility] [address] [id number] [address] [place] [address], [place] [address] 06 Aug, 2011 [facility] [address] [id number] [address] [place] [address], [place] [address] 28 Jul, 2011 [facility] [address] [id number] [address] [place] [address], [place] [address] 22 Jul, 2011 [facility] [address] [id number] [address] [place] [address], [place] [address] 16 Jul, 2011 [facility] [address] [id number] [address] [place] [address], [place] [address] 15 Jul, 2011 [facility] [address] [id number] [address] [place] [address], [place] [address] 14 Jul, 2011 [facility] [address] [id number] [address] [place] [address] [address] Jul, [facility] [address] [id number] [address] [place] [address], [place] [address] Jun, [facility] [address] [id number] [address] [place] [address], [place] [address] Jun, [facility] [address] [id number] [address] [place] [address], [place] [address] Jun, [facility] [address] [id number] [address] [place] [address], [place] [address] Jun, [facility] [address] [id number] [address] [place] [address], [place] [address] Jun, [facility] [address] [id number] [address] [place] [address], [place] [address] May, [facility] [address] [id number] [address] [place] [address], [place] [address] May, [facility] [address] [id number] [address] [place] [address], [place] [address] May, [facility] [address] [id number] [address] [place] [address], [place] [address] May, [facility] [address] [id number] [address] [place] [address], [place] [address] May, [facility] [address] [id number] [address] [place] [address], [place] [address] May, [facility] [address] [id number] [address] [place] [address], [place] [address] 05 May, 2011 [facility] [address] [id number] [address] [place] [address], [place] [address] 15 Apr, 2011 [facility] [address] [id number] [address] [place] [address], [place] [address] 15 Apr, 2011 [facility] [address] [id number] [address] [place] [address], [place] [address] Apr, [facility] [address] [id number] [address] [place] [address], [place] [address] Apr, [facility] [address] [id number] [address] [place] [address], [place] [address] Apr, [facility] [address] [id number] [address] [place] [address], [place] [address] Apr, [facility] [address] [id number] [address] [place] [address], [place] [address] Mar, [facility] [address] [id number] [address] [place] [address], [place] [address] Mar, [facility] [address] [id number] [address] [place] [address], [place] [address] Mar, [facility] [address] [id number] [address] [place] [address], [place] [address] Mar, [facility] [address] [id number] [address] [place] [address], [place] [address] Jan, [facility] [address] [id number] [address] [place] [address], [place] [address] Dec, [facility] [address] [id number] [address] [place] [address], [place] [address] Dec, [facility] [address] [id number] [address] [place] [address], [place] [address] October, [facility] [address] [id number] [address] [place] [address], [place] [address] Sep, [facility] [address] [id number] [address] [place] [address], [place] [address] 14 Sep, 2010 [facility] [address] [id number] [address] [place] [address], [place] [address] 17 Jul, 2010 [facility] [address] [id number] [address] [place] [address], [place] [address] 16 Jul, 2010 [facility] [address] [id number] [address] [place] [address], [place] [address] 31 May, 2010 [facility] [address] [id number] [address] [place] [address], [place] [address] 27 May, 2010 [facility] [address] [id number] [address] [place] [address], [place] [address] 08 May, 2010 [facility] [address] [id number] [address] [place] [address], [place] [address] May, [facility] [address] [id number] 41 [place] [address], [place] [address] Apr, [facility] [address] [id number] [address] [place] [address], [place] [address] Apr, [facility] [address] [id number] [address] [place] [address], [place] [id number] Apr, [facility] [address] [id number] [address] [place] [address], [place] [address] Apr, [facility] [address] [id number] [address] [place] [id number] Apr, [facility] [address] [id number] [address] [place] [address], [place] [address] Mar, [facility] [address] [id number] [address] [place] [id number] 14 Mar, 2010 [facility] [address] [id number] [address] [place] [id number] 13 Mar, 2010 [facility] [address] [id number] [address] [place] [phone] Mar, [facility] [address] [id number] [address] [place] [address], [place] [address] Jan, [facility] [address] [id number] [address] [place] [id number] 15 Dec, 2009 [facility] [address] [id number] [address] [place] [id number] 10 Sep, 2009 [facility] [address] [id number] [address] [place] [id number] May, [facility] [address] [id number] [address] [place] [id number] May, [facility] [address] [id number] [address] [place] [phone] May, [facility] [address] [id number] [address] [place] [id number] Apr, [facility] [address] [id number] [address] [place] [id number] Apr, [facility] [address] [id number] [address] [place] [id number] Apr, [facility] [address] [facility] [id number] [address] [place] [phone] Apr, [facility] [address] [facility] [id number] [address] [place] [id number] Apr, [facility] [address] [id number] [address] [place] [id number] Mar, [facility] [address] [facility] [id number] [address] [place] [id number] Mar, [facility] [address] [facility] [id number] [address] [place] [id number] Jul, IMMUNIZATIONS No Known Immunizations SOCIAL HISTORY Never Assessed REASON FOR VISIT PLAN OF CARE VITAL SIGNS MEDICATIONS No Known Medications RESULTS No Results PROCEDURES No Known [...] kidney cancer stage 3/ removed left kidn 2016 Medical History thoracic outlet syndrome Surgical [...] and replaced VC 10/2018 Hospitalization History Cellulitis-[facility]ia [facility] Hospitalization History [facility]- Abd pain 03/07/2017 Hospitalization History [facility]- Abd pain 03/14/2017 Hospitalization History [facility]- No bowel movement, rash 04/13/2017 Hospitalization History [facility]- Abd pain r/ t kidney surgery on 04/10/17 04/17/2017 Hospitalization History [facility]- Abd pain r/ t kidney surgery on 04/10/17 04/18/2017 Hospitalization History [facility]- Lower abd pain 04/17 Hospitalization History [facility]- Cannot urinate 05/17 Hospitalization History [facility]- Pancreatitis Sx Hospitalization History [facility]- Stomach pain 2017 Hospitalization History [facility]- Left side pain 07/19 Hospitalization History [facility]- Incision site infec tion 08/30/2017 Hospitalization History [facility]- Post Op Serom a/Hematoma Left Abdomen. Discharged 09/04/17- Dr Daniel 09/02/2017 Hospitalization History [facility]- Right shoulder and back pain 10/22/2017 Hospitalization History [facility]- Shoulder/Back pain 11/11/2017 Hospitalization History [facility]- Right shoulder blad e pain 12/04/2017 Hospitalization History [facility]- C-Diff 12/13/2017 Hospitalization History C diff et MRSA 12/27/2017 Hospitalization History [facility] Bowel Obstruction 10/2018 Hospitalization History [facility]- Abdominal pain and nausea 01/08/2019
--- OUTSIDE RECORDS SUMMARY | 2019-10-17 05:06 | XMS REPORT ---
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 [address] Aug, [facility] [address] [facility] [id number] [address] [place] [address] 04 Jul, 2015 Pain in unspecified wrist M2 5.539 and Back pain, thoracic M54.6 [facility] [address] [facility] [id number] [address] [place] [address] 13 Jun, 2015 Strain of right wrist, initi al encounter S66.911A [place] [address] [place] [id number] [address] [place] [address] Jun, Chronic pancreatitis, unspec ified pancreatitis type K86.1 ; Hirsuties L68.0 ; Morbid (severe) obesity due to excess calories E66.01 ; Chronic pancreatitis K86.1 and Asthma J45.909 [place] [address] [place] [id number] [address] [place] [address] May, [place] [address] [place] [id number] [place] [address] May, Hyperlipidemia, mixed E78.2 and Muscle spasm of back M62.830 [place] [address] [place] [id number] [address] [place] [address] Apr, [place] [address] [place] [id number] [address] [place] [address] Apr, Torticollis M43.6 [place] [address] [place] [id number] [address] [place] [address] 09 Apr, 2015 Right-sided thoracic back pa in M54.6 [facility] [address] [facility] [id number] [address] [place] [address] Mar, Rash R21 [facility] [address] [facility] [id number] [address] [place] [address] Mar, [facility] [address] [place] [id number] [address] [place] [address] Jan, [facility] [address] [place] [id number] [address] [place] [address] Dec, [facility] [address] [facility] [id number] [address] [place] [address] Dec, Urinary frequency 788.41 and Nocturia more than twice per night 788.43 [facility] [address] [facility] [id number] [address] [place] [address] Nov, [facility] [address] [facility] [id number] [address] [place] [address] Nov, [facility] [address] [facility] [id number] [address] [place] [address] Nov, Abdominal pain 789.00 [facility] [address] [facility] [id number] [address] [place] [address] October, TDAP DX V06.1 [facility] [address] [facility] [id number] [address] [place] [address] October, [facility] [address] [facility] [id number] [address] [place] [address] October, Disturbance of skin sensatio n 782.0 ; Wrist pain, right 719.43 ; Hyperlipidemia 272.4 and Skin lesion of face 709.9 [facility] [address] [facility] [id number] [address] [place] [address] Sep, [facility] [address] [facility] [id number] [address] [place] [address] Sep, [facility] [address] [facility] [id number] [address] [place] [address] Aug, [facility] [address] [facility] [id number] [address] [place] [address] Aug, [facility] [address] [facility] [id number] [address] [place] [address] Aug, [facility] [address] [facility] [id number] [address] [place] [address] Aug, [facility] [address] [id number] [address] [place] [address], [place] [address] 16 Aug, 2014 [facility] [address] [id number] [address] [place] [address], [place] [address] 16 Aug, 2014 [facility] [address] [id number] [address] [place] [address], [place] [address] 14 Aug, 2014 [facility] [address] [id number] [address] [place] [address], [place] [address] 14 Aug, 2014 [facility] [address] [id number] [address] [place] [address], [place] [address] 11 Aug, 2014 [facility] [address] [id number] [address] [place] [address], [place] [address] 11 Aug, 2014 [facility] [address] [id number] [address] [place] [address], [place] [address] 04 Aug, 2014 [facility] [address] [id number] [address] [place] [address], [place] [address] 04 Aug, 2014 [facility] [address] [id number] [address] [place] [address], [place] [address] 03 Aug, 2014 [facility] [address] [id number] [address] [place] [address], [place] [address] 03 Aug, 2014 [facility] [address] [id number] [address] [place] [address], [place] [address] 23 Jul, 2014 [facility] [address] [id number] [address] [place] [address], [place] [address] 23 Jul, 2014 [facility] [address] [id number] [address] [place] [address], [place] [address] 13 Jul, 2014 [facility] [address] [id number] [address] [place] [address], [place] [address] 13 Jul, 2014 [facility] [address] [id number] [address] [place] [address], [place] [address] 04 Jul, 2014 [facility] [address] [id number] [address] [place] [address], [place] [address] Jul, [facility] [address] [id number] [address] [place] [address], [place] [address] Jun, [facility] [address] [id number] [address] [place] [address], [place] [address] Jun, [facility] [address] [id number] [address] [place] [address], [place] [address] Jun, [facility] [address] [id number] [address] [place] [address], [place] [address] Jun, [facility] [address] [id number] [address] [place] [address], [place] [address] Jun, [facility] [address] [id number] [address] [place] [address], [place] [address] Jun, [facility] [address] [id number] [address] [place] [address], [place] [address] Jun, [facility] [address] [id number] [address] [place] [address], [place] [address] 15 Jun, 2014 [facility] [address] [id number] [address] [place] [address], [place] [address] May, [facility] [address] [id number] [address] [place] [address], [place] [address] May, [facility] [address] [id number] [address] [place] [address], [place] [address] 18 May, 2014 [facility] [address] [id number] [address] [place] [address], [place] [address] 18 May, 2014 [facility] [address] [id number] [address] [place] [address], [place] [address] 15 May, 2014 [facility] [address] [id number] [address] [place] [address], [place] [address] 15 May, 2014 [facility] [address] [id number] [address] [place] [address], [place] [address] 11 May, 2014 [facility] [address] [id number] [address] [place] [address], [place] [address] May, [facility] [address] [id number] [address] [place] [address], [place] [address] May, [facility] [address] [id number] [address] [place] [address], [place] [address] May, [facility] [address] [id number] [address] [place] [address], [place] [address] May, [facility] [address] [id number] [address] [place] [address], [place] [address] May, [facility] [address] [id number] [address] [place] [address], [place] [address] Apr, [facility] [address] [id number] [address] [place] [address], [place] [address] Apr, [facility] [address] [id number] [address] [place] [address], [place] [address] Apr, [facility] [address] [id number] [address] [place] [address], [place] [address] Apr, [facility] [address] [id number] [address] [place] [address], [place] [address] Apr, [facility] [address] [id number] [address] [place] [address], [place] [address] Apr, [facility] [address] [id number] [address] [place] [address], [place] [address] Apr, [facility] [address] [id number] [address] [place] [address], [place] [address] Apr, [facility] [address] [id number] [address] [place] [address], [place] [address] Apr, [facility] [address] [id number] [address] [place] [address], [place] [address] Apr, [facility] [address] [id number] [address] [place] [address], [place] [address] Apr, [facility] [address] [id number] [address] [place] [address], [place] [address] Apr, [facility] [address] [id number] [address] [place] [address], [place] [address] Mar, [facility] [address] [id number] [address] [place] [address], [place] [address] Mar, [facility] [address] [id number] [address] [place] [address], [place] [address] Mar, [facility] [address] [id number] [address] [place] [address], [place] [address] Mar, [facility] [address] [id number] [address] [place] [address], [place] [address] Feb, [facility] [address] [id number] [address] [place] [address], [place] [address] Feb, [facility] [address] [id number] [address] [place] [address], [place] [address] 05 Feb, 2014 [facility] [address] [id number] [address] [place] [address], [place] [address] Feb, [facility] [address] [id number] [address] [place] [address], [place] [address] Feb, [facility] [address] [id number] [address] [place] [address], [place] [address] Feb, [facility] [address] [id number] [address] [place] [address], [place] [address] Jan, [facility] [address] [id number] [address] [place] [address], [place] [address] Jan, [facility] [address] [id number] [address] [place] [address], [place] [address] Jan, [facility] [address] [id number] [address] [place] [address], [place] [address] Jan, [facility] [address] [id number] [address] [place] [address] Jan, [facility] [address] [id number] [address] [place] [address], [place] [address] Jan, [facility] [address] [id number] [address] [place] [address], [place] [address] Jan, [facility] [address] [id number] [address] [place] [address], [place] [address] Jan, [facility] [address] [id number] [address] [place] [address], [place] [address] Jan, [facility] [address] [id number] [address] [place] [address], [place] [address] Jan, [facility] [address] [id number] [address] [place] [address], [place] [address] Jan, [facility] [address] [id number] [address] [place] [address], [place] [address] Jan, [facility] [address] [id number] [address] [place] [address], [place] [address] Jan, [facility] [address] [id number] [address] [place] [address], [place] [address] Jan, [facility] [address] [id number] [address] [place] [address], [place] [address] Dec, [facility] [address] [id number] [address] [place] [address], [place] [address] Dec, [facility] [address] [id number] [address] [place] [address], [place] [address] Dec, [facility] [address] [id number] [address] [place] [address], [place] [address] Dec, [facility] [address] [id number] [address] [place] [address], [place] [address] Nov, [facility] [address] [id number] [address] [place] [address], [place] [address] Nov, [facility] [address] [id number] [facility] [place] [address] Nov, [facility] [address] [id number] [facility] [place] [address] Nov, [facility] [address] [id number] [facility] [place] [address] Nov, [facility] [address] [id number] [address] [place] [address], [place] [address] October, [facility] [address] [id number] [address] [place] [address], [place] [address] October, [facility] [address] [id number] [address] [place] [address], [place] [address] October, [facility] [address] [id number] [address] [place] [address], [place] [address] October, [facility] [address] [id number] [address] [place] [address], [place] [address] October, [facility] [address] [id number] [address] [place] [address], [place] [address] October, [facility] [address] [id number] [address] [place] [address], [place] [address] October, [facility] [address] [id number] [address] [place] [address], [place] [address] October, [facility] [address] [id number] [address] [place] [address], [place] [address] October, [facility] [address] [id number] [address] [place] [address], [place] [address] October, [facility] [address] [id number] [address] [place] [address], [place] [address] October, [facility] [address] [id number] [address] [place] [address], [place] [address] October, [facility] [address] [id number] [address] [place] [address], [place] [address] October, [facility] [address] [id number] [facility] [place] [address] October, [facility] [address] [id number] [address] [place] [address], [place] [address] Sep, [facility] [address] [id number] [address] [place] [address], [place] [address] Sep, [facility] [address] [id number] [address] [place] [address], [place] [address] Sep, [facility] [address] [id number] [address] [place] [address], [place] [address] Sep, [facility] [address] [id number] [address] [place] [address], [place] [address] Sep, [facility] [address] [id number] [address] [place] [address], [place] [address] Sep, [facility] [address] [id number] [address] [place] [address], [place] [address] Sep, [facility] [address] [id number] [address] [place] [address], [place] [address] Sep, [facility] [address] [id number] [address] [place] [address], [place] [address] Sep, [facility] [address] [id number] [address] [place] [address], [place] [address] Sep, [facility] [address] [id number] [address] [place] [address], [place] [address] Sep, [facility] [address] [id number] [address] [place] [address], [place] [address] Sep, [facility] [address] [id number] [address] [place] [address], [place] [address] Sep, [facility] [address] [id number] [address] [place] [address], [place] [address] Sep, [facility] [address] [id number] [address] [place] [address], [place] [address] Sep, [facility] [address] [id number] [address] [place] [address], [place] [address] Aug, [facility] [address] [id number] [address] [place] [address], [place] [address] Aug, [facility] [address] [id number] [address] [place] [address], [place] [address] Aug, [facility] [address] [id number] [address] [place] [address], [place] [address] Aug, [facility] [address] [id number] [address] [place] [address], [place] [address] Jul, [facility] [address] [id number] [address] [place] [address], [place] [address] Jul, [facility] [address] [id number] [address] [place] [address], [place] [address] Jul, [facility] [address] [id number] [address] [place] [address], [place] [address] Jul, [facility] [address] [id number] [address] [place] [address], [place] [address] Jun, [facility] [address] [id number] [address] [place] [address], [place] [address] Jun, [facility] [address] [id number] [address] [place] [address], [place] [address] Jun, [facility] [address] [id number] [address] [place] [address], [place] [address] Jun, [facility] [address] [id number] [address] [place] [address], [place] [address] Jun, [facility] [address] [id number] [address] [place] [address], [place] [address] Jun, [facility] [address] [id number] [address] [place] [address], [place] [address] Jun, [facility] [address] [id number] [address] [place] [address], [place] [address] 08 Jun, 2013 [facility] [address] [id number] [address] [place] [address], [place] [address] 20 May, 2013 [facility] [address] [id number] [address] [place] [address], [place] [address] 20 May, 2013 [facility] [address] [id number] [address] [place] [address], [place] [address] 18 May, 2013 [facility] [address] [id number] [address] [place] [address], [place] [address] 18 May, 2013 [facility] [address] [id number] [address] [place] [address], [place] [address] 17 May, 2013 [facility] [address] [id number] [address] [place] [address], [place] [id number] 17 May, 2013 [facility] [address] [id number] [address] [place] [address], [place] [address] 17 May, 2013 [facility] [address] [id number] [address] [place] [address], [place] [address] 17 May, 2013 [facility] [address] [id number] [address] [place] [address], [place] [address] 16 May, 2013 [facility] [address] [id number] [address] [place] [address], [place] [address] 16 May, 2013 [facility] [address] [id number] [address] [place] [address], [place] [address] 14 May, 2013 [facility] [address] [id number] [address] [place] [address], [place] [address] 14 May, 2013 [facility] [address] [id number] [address] [place] [address], [place] [address] 13 May, 2013 [facility] [address] [id number] [address] [place] [address], [place] [address] 13 May, 2013 [facility] [address] [id number] [address] [place] [address], [place] [address] May, [facility] [address] [id number] [address] [place] [address], [place] [address] May, [facility] [address] [id number] [address] [place] [address], [place] [address] May, [facility] [address] [id number] [address] [place] [address], [place] [address] May, [facility] [address] [id number] [address] [place] [address], [place] [address] Apr, [facility] [address] [id number] [address] [place] [address], [place] [address] Apr, [facility] [address] [id number] [address] [place] [address], [place] [address] Apr, [facility] [address] [id number] [address] [place] [address], [place] [address] Apr, [facility] [address] [id number] [address] [place] [address], [place] [address] Aug, [facility] [address] [id number] [address] [place] [address], [place] [address] Aug, [facility] [address] [id number] [address] [place] [address], [place] [address] Aug, [facility] [address] [id number] [address] [place] [address], [place] [address] Aug, [facility] [address] [id number] [address] [place] [address], [place] [address] Jul, [facility] [address] [id number] [address] [place] [address], [place] [address] Jun, [facility] [address] [id number] [address] [place] [address], [place] [address] Jun, [facility] [address] [id number] [address] [place] [address], [place] [address] Jun, [facility] [address] [id number] [address] [place] [address], [place] [address] Jun, [facility] [address] [id number] [address] [place] [address], [place] [address] May, [facility] [address] [id number] [address] [place] [address], [place] [address] May, [facility] [address] [id number] [address] [place] [address], [place] [address] May, [facility] [address] [id number] [address] [place] [address], [place] [address] May, [facility] [address] [id number] [address] [place] [address], [place] [address] May, [facility] [address] [id number] [address] [place] [address], [place] [address] May, [facility] [address] [id number] [address] [place] [address], [place] [address] May, [facility] [address] [id number] [address] [place] [address], [place] [address] Apr, [facility] [address] [id number] [address] [place] [address], [place] [address] Apr, [facility] [address] [id number] [address] [place] [address], [place] [address] Apr, [facility] [address] [id number] [address] [place] [address], [place] [address] Apr, [facility] [address] [id number] [address] [place] [address], [place] [address] Apr, [facility] [address] [id number] [address] [place] [address], [place] [address] Apr, [facility] [address] [id number] [address] [place] [address], [place] [address] Apr, [facility] [address] [id number] [address] [place] [address] [address] Mar, [facility] [address] [id number] [address] [place] [address], [place] [address] Mar, [facility] [address] [id number] [address] [place] [address], [place] [address] Mar, [facility] [address] [id number] [address] [place] [address], [place] [address] Mar, [facility] [address] [id number] [address] [place] [address], [place] [address] Mar, [facility] [address] [id number] [address] [place] [address], [place] [address] Mar, [facility] [address] [id number] [address] [place] [address], [place] [address] Mar, [facility] [address] [id number] [address] [place] [address], [place] [address] Mar, [facility] [address] [id number] [address] [place] [address], [place] [address] Mar, [facility] [address] [id number] [address] [place] [address], [place] [address] Mar, [facility] [address] [id number] [address] [place] [address] Mar, [facility] [address] [id number] [address] [place] [address] Mar, [facility] [address] [id number] [address] [place] [address] 06 Feb, 2012 [facility] [address] [id number] [address] [place] [address], [place] [address] Jan, [facility] [address] [id number] [address] [place] [address] 14 Jan, 2012 [facility] [address] [id number] [address] [place] [address] Jan, [facility] [address] [id number] [address] [place] [address], [place] [address] Jan, [facility] [address] [id number] [address] [place] [address], [place] [address] Jan, [facility] [address] [id number] [address] [place] [address], [place] [address] Dec, [facility] [address] [id number] [address] [place] [address], [place] [address] Dec, [facility] [address] [id number] [address] [place] [address], [place] [address] Nov, [facility] [address] [id number] [address] [place] [address], [place] [address] Nov, [facility] [address] [id number] [address] [place] [address], [place] [address] Nov, [facility] [address] [id number] [address] [place] [address], [place] [address] October, [facility] [address] [id number] [address] [place] [address], [place] [address] October, [facility] [address] [id number] [address] [place] [address], [place] [address] October, [facility] [address] [id number] [address] [place] [address], [place] [address] October, [facility] [address] [id number] [address] [place] [address], [place] [address] October, [facility] [address] [id number] [address] [place] [address], [place] [address] October, [facility] [address] [id number] [address] [place] [address], [place] [address] October, [facility] [address] [id number] [address] [place] [address], [place] [address] Sep, [facility] [address] [id number] [address] [place] [address], [place] [address] Sep, [facility] [address] [id number] [address] [place] [address], [place] [address] 26 Sep, 2011 [facility] [address] [id number] [address] [place] [address], [place] [address] 25 Sep, 2011 [facility] [address] [id number] [address] [place] [address], [place] [address] 24 Sep, 2011 [facility] [address] [id number] [address] [place] [address], [place] [address] 19 Sep, 2011 [facility] [address] [id number] [address] [place] [address], [place] [address] 17 Sep, 2011 [facility] [address] [id number] [address] [place] [address], [place] [address] 16 Sep, 2011 [facility] [address] [id number] [address] [place] [address], [place] [address] 16 Sep, 2011 [facility] [address] [id number] [address] [place] [address], [place] [address] 14 Sep, 2011 [facility] [address] [id number] [address] [place] [address], [place] [address] 13 Sep, 2011 [facility] [address] [id number] [address] [place] [address], [place] [address] 10 Sep, 2011 [facility] [address] [id number] [address] [place] [address], [place] [address] 09 Sep, 2011 [facility] [address] [id number] [address] [place] [address], [place] [address] 27 Aug, 2011 [facility] [address] [id number] [address] [place] [address], [place] [address] 12 Aug, 2011 [facility] [address] [id number] [address] [place] [address], [place] [address] 08 Aug, 2011 [facility] [address] [id number] [address] [place] [address], [place] [address] 06 Aug, 2011 [facility] [address] [id number] [address] [place] [address], [place] [address] 28 Jul, 2011 [facility] [address] [id number] [address] [place] [address], [place] [address] 22 Jul, 2011 [facility] [address] [id number] [address] [place] [address], [place] [address] 16 Jul, 2011 [facility] [address] [id number] [address] [place] [address], [place] [address] 15 Jul, 2011 [facility] [address] [id number] [address] [place] [address], [place] [address] 14 Jul, 2011 [facility] [address] [id number] [address] [place] [address], [place] [address] 10 Jul, 2011 [facility] [address] [id number] [address] [place] [address], [place] [address] 30 Jun, 2011 [facility] [address] [id number] [address] [place] [address], [place] [address] 05 Jun, 2011 [facility] [address] [id number] [address] [place] [address], [place] [address] Jun, [facility] [address] [id number] [address] [place] [address], [place] [address] Jun, [facility] [address] [id number] [address] [place] [address], [place] [address] Jun, [facility] [address] [id number] [address] [place] [address], [place] [address] 27 May, 2011 [facility] [address] [id number] [address] [place] [address], [place] [address] May, [facility] [address] [id number] [address] [place] [address], [place] [address] May, [facility] [address] [id number] [address] [place] [address], [place] [address] May, [facility] [address] [id number] [address] [place] [address], [place] [address] May, [facility] [address] [id number] [address] [place] [address], [place] [address] 07 May, 2011 [facility] [address] [id number] [address] [place] [address], [place] [address] May, [facility] [address] [id number] [address] [place] [address], [place] [address] Apr, [facility] [address] [id number] [address] [place] [address], [place] [address] Apr, [facility] [address] [id number] [address] [place] [address], [place] [address] Apr, [facility] [address] [id number] [address] [place] [address], [place] [address] Apr, [facility] [address] [id number] [address] [place] [address], [place] [address] Apr, [facility] [address] [id number] [address] [place] [address], [place] [address] Apr, [facility] [address] [id number] [address] [place] [address], [place] [address] Mar, [facility] [address] [id number] [address] [place] [address], [place] [address] Mar, [facility] [address] [id number] [address] [place] [address], [place] [address] Mar, [facility] [address] [id number] [address] [place] [address], [place] [address] Mar, [facility] [address] [id number] [address] [place] [address], [place] [address] Jan, [facility] [address] [id number] [address] [place] [address], [place] [address] Dec, [facility] [address] [id number] [address] [place] [address], [place] [address] Dec, [facility] [address] [id number] [address] [place] [address], [place] [address] October, [facility] [address] [id number] [address] [place] [address], [place] [address] Sep, [facility] [address] [id number] [address] [place] [address], [place] [address] 14 Sep, 2010 [facility] [address] [id number] [address] [place] [address], [place] [address] 17 Jul, 2010 [facility] [address] [id number] [address] [place] [address], [place] [address] 16 Jul, 2010 [facility] [address] [id number] [address] [place] [address], [place] [address] May, [facility] [address] [id number] [address] [place] [address], [place] [address] May, [facility] [address] [id number] [address] [place] [address], [place] [address] May, [facility] [address] [id number] [address] [place] [address], [place] [address] May, [facility] [address] [id number] [address] [place] [address], [place] [address] Apr, [facility] [address] [id number] [address] [place] [address], [place] [address] Apr, [facility] [address] [id number] [address] [place] [address], [place] [address] Apr, [facility] [address] [id number] [address] [place] [address], [place] [address] Apr, [facility] [address] [id number] [address] [place] [address], [place] [address] Apr, [facility] [address] [id number] [address] [place] [address], [place] [address] Mar, [facility] [address] [id number] [address] [place] [address], [place] [address] Mar, [facility] [address] [id number] [address] [place] [address], [place] [address] 13 Mar, 2010 [facility] [address] [id number] [address] [place] [address], [place] [address] Mar, [facility] [address] [id number] [address] [place] [address], [place] [address] Jan, [facility] [address] [id number] [address] [place] [address], [place] [address] 15 Dec, 2009 [facility] [address] [id number] [address] [place] [address], [place] [address] Sep, [facility] [address] [id number] [address] [place] [address], [place] [address] 08 May, 2009 [facility] [address] [id number] [address] [place] [address], [place] [address] May, [facility] [address] [id number] [address] [place] [address], [place] [address] May, [facility] [address] [id number] [address] [place] [address], [place] [address] Apr, [facility] [address] [id number] [address] [place] [address], [place] [address] 17 Apr, 2009 [facility] [address] [id number] [address] [place] [address] Apr, [facility] [address] [id number] [address] [place] [address], [place] [address] Apr, [facility] [address] [id number] [address] [place] [address], [place] [address] Apr, [facility] [address] [id number] [address] [place] [address], [place] [address] 15 Mar, 2009 [facility] [address] [id number] [address] [place] [address], [place] [address] 15 Mar, 2009 [facility] [address] [id number] [address] [place] [address], [place] [address] Jul, IMMUNIZATIONS No Known Immunizations SOCIAL HISTORY [...] and replaced VC 10/2018 Hospitalization History Cellulitis-Via [facility] Hospitalization History [facility] [place]- Abd pain 03/07/2017 [facility] History [facility] [place]- Abd pain 03/14/2017 Hospitalization History [facility] [place]- No bowel movement, rash 04/13/2017 Hospitalization History [facility] [place]- Abd pain r/ t kidney surgery on 04/10/17 04/17/2017 Hospitalization History [facility] [place]- Abd pain r/ t kidney surgery on 04/10/17 04/18/2017 Hospitalization History [facility] [place]- Lower abd pain 04/17 Hospitalization History [facility] [place]- Cannot urinate 05/17 Hospitalization History [facility] [place]- Pancreatitis Sx Hospitalization History [facility] [place]- Stomach pain 2017 Hospitalization History [facility] [place]- Left side pain 07/19 Hospitalization History [facility]- Incision site infec tion 08/30/2017 Hospitalization History [facility]- Post Op Serom a/Hematoma Left Abdomen. Discharged 09/04/17- Dr Daniel 09/02/2017 Hospitalization History [facility]- Right shoulder and back pain 10/22/2017 Hospitalization History [facility]- Shoulder/Back pain 11/11/2017 Hospitalization History [facility]- Right shoulder blad e pain 12/04/2017 Hospitalization History [facility]- C-Diff 12/13/2017 Hospitalization History C diff et MRSA 12/27/2017 Hospitalization History [facility] Bowel Obstruction 10/2018 Hospitalization History [facility]- Abdominal pain and nausea 01/08/2019
--- OUTSIDE RECORDS SUMMARY | 2019-10-17 05:07 | XMS REPORT ---
Author Author Janeth GIBBS [facility] Address [address] [place] [address] Care Team Providers Care Public Relations Professional Name Role Phone SAI CARMEN Unavailable PROBLEMS Type Condition ICD9-CM Code [id number] Code Onset Dates Condition S tatus SNOMED Code Problem History of renal cell carcinoma Z85.528 Active 880193392 Problem Hepatic steatosis K76.0 Active 19 2885851 Problem Nodule of left lung R91.1 Active 848991964 Problem Right carpal tunnel syndrome G56.01 A ctive 801833942208290 Problem Mild obstructive sleep apnea G47.33 A ctive 60800357 Problem Chronic fatigue R53.82 Active 8422 9001 Problem Moderate episode of recurrent major depressive disorder F33.1 Active 747818603 Problem Asthma J45.909 Active 815531148 Problem Chronic tension-type headache, intractable G44.221 Active 211115588 Problem Polydipsia R63.1 Active 08237447 Problem Chronic pancreatitis K86.1 Active 507942029 Problem Chronic post-traumatic stress disorder (PTSD) F43. 12 Active 269008829 Problem Atelectasis J98.11 Active 71773231 Problem Trichotillomania F63.3 Active 171 37232 Problem Restless leg syndrome G25.81 Active 25657392 Problem Intestinal malabsorption, unspecified K90.9 Active 48578633 Problem Primary osteoarthritis of right knee M17.11 Active 979527951001589 Problem Menopausal symptoms N95.1 Active 97753602 Problem Generalized social phobia F40.11 Acti ve 58514397 Problem FH: polycystic ovary Z84.2 Active 717334068 Problem Vitamin D deficiency E55.9 Active 50239384 Problem Hirsuties L68.0 Active 479172352 Problem Hyperlipidemia, mixed E78.2 Active 260277369 Problem Social phobia, unspecified F40.10 Act yolanda 28276903 Problem Morbid obesity E66.01 Active 96222 6002 Problem Conflict between patient and family Z63.9 Active 87724147 Problem BMI 45.0-49.9, adult Z68.42 Active 058862152 ALLERGIES No Information ENCOUNTERS Encounter Location Date Diagnosis [place] [address] [address] 18 Aug, 2019 [place] [address] [address] Aug, Left sided abdominal pain R10.9 [place] [address] [address] Aug, [place] [address] [address] Aug, [place] [address] [address] Jul, Low serum vitamin D R79.89 [place] [address] [address] Jul, [place] [address] [address] Jul, [place] [address] [address] Jul, Chronic fatigue R53.82 ; Restless leg sy ndrome G25.81 ; Vitamin D deficiency E55.9 and Vitamin B deficiency E53.9 [place] [address] [address] Jul, Chronic post-traumatic stress disorder ( PTSD) F43.12 ; Generalized social phobia F40.11 ; Conflict between patient and family Z63.9 ; Trichotillomania F63.3 and BMI 45.0-49.9, adult Z68.42 [place] [address] [address] Jun, [place] [address] [address] Jun, [place] [address] [place] [address] Jun, [facility] [address] [id number] [place] [address] May, [facility] [place] [address] [place] [address] May, [facility] [address] [id number] [place] [address] May, [facility] [address] [id number] [place] [address] May, [facility] [address] [id number] [place] [address] May, [facility] [address] [place] [id number] [place] [address] Apr, [facility] [id number] [place] [address] Apr, [facility] [address] [id number] [place] [address] Apr, [facility] [address] [id number] [place] [address] Mar, Cervical radiculopathy M54.12 [facility] [address] [id number] [place] [address] Mar, [facility] [id number] [place] [address] Mar, [facility] [address] [id number] [place] [address] Mar, [facility] [address] [id number] [place] [address] Mar, [facility] [address] [id number] [place] [address] Mar, [facility] [address] [id number] [place] [address] Mar, [facility] [address] [address] [id number] [place] [address] Mar, [facility] [place] [address] [address] Feb, Chronic cough R05 [facility] [place] [address] [address] Feb, [facility] [place] [address] [address] Feb, [facility] [place] [address] [address] Feb, Cervical radiculopathy M54.12 [facility] [place] [address] [address] 17 Feb, 2019 Pain of left thumb M79.645 [facility] [place] [address] [address] Feb, [facility] [place] [address] [address] Feb, [facility] [place] [address] [address] Feb, [facility] [place] [address] [address] Feb, Cough present for greater than 3 weeks R 05 [place] [address] [address] Feb, Cough present for greater than 3 weeks R 05 ; Feels sick R68.89 ; History of renal cell carcinoma Z85.528 and Morbid obesity E66.01 [facility] [place] [address] [place] [id number] [place] [address] Jan, [facility] [address] [place] [id number] [place] [id number] Jan, Oral health maintenance status requiring routine preventive dental care K08.9 ; Dental examination Z01.20 and Caries K02.9 [facility] [place] [address] [place] [id number] [place] [address] Jan, Dysuria R30.0 [place] [address] [address] Jan, Dysuria R30.0 [place] [address] [address] Jan, Viral pharyngitis J02.9 and Morbid obesi ty E66.01 [place] [address] [address] Jan, [place] [address] [address] Jan, Left sided abdominal pain R10.9 ; Other acute postprocedural pain G89.18 ; History of renal cell carcinoma Z85.528 and Morbid obesity E66.01 [place] [address] [address] Dec, Dental examination Z01.[address] [address] Dec, Elevated LFTs R94.[address] [address] Dec, Encounter for Medicare annual wellness e xam Z00.00 ; Chronic tension- type headache, intractable G44.221 ; Morbid (severe) obesity due to excess calories E66.01 ; Hyperlipidemia, mixed E78.2 ; Chronic pancreatitis K86.1 ; Asthma J45.909 ; Moderate episode of recurrent major depressive disorder F33.1 ; Chronic fatigue R53.82 and Social phobia, unspecified F40.10 [place] [address] [address] Dec, [place] [address] [address] Dec, [place] [address] [address] Dec, [place] [address] [address] Dec, Hyperlipidemia, mixed E78.2 ; History of renal cell carcinoma Z85.528 and Restless leg syndrome G25.81 [facility] [place] [address] [address] Dec, Hyperlipidemia, mixed E78.2 ; Chronic pa ncreatitis K86.1 ; Restless leg syndrome G25.81 ; Nodule of left lung R91.1 ; History of renal cell carcinoma Z85.528 ; Leg swelling M79.89 ; Morbid obesity E66.01 and Observed sleep apnea G47.30 [facility] [place] [address] [place] [id number] [place] [address] Nov, [facility] [place] [address] [address] Nov, [place] [address] [address] Nov, [facility] [address] [facility] [id number] [address] [place] [address] Nov, Other acute postprocedural p ain G89.18 and Unspecified abdominal pain R10.9 [facility] [place] [address] [address] October, [place] [address] [address] October, Social phobia, generalized F40.11 ; Conf lict between patient and family Z63.9 and Morbid obesity E66.01 [facility] [place] [address] [place] [id number] [place] [address] October, [facility] [place] [address] [address] October, [facility] [place] [address] [address] October, [facility] [place] [address] [address] October, [place] [address] [place] [address] October, [facility] [place] [address] [id number] [place] [address] October, [address] [place] [address] October, [facility] [place] [address] [id number] [place] [address] October, Morbid obesity E66.01 ; Routine gynecolo gical examination Z01.419 and Menopausal symptoms N95.1 [facility] [place] [address] [id number] [place] [address] October, [address] [place] [address] Sep, [facility] [place] [address] [id number] [place] [address] Sep, [facility] [place] [address] [place] [id number] [place] [address] Sep, [facility] [place] [address] [id number] [place] [address] Sep, [facility] [place] [address] [id number] [place] [address] Sep, Lower extremity edema R60.0 [facility] [place] [address] [id number] [place] [address] Sep, [facility] [address] [facility] [id number] [address] [place] [address] Sep, Lower extremity edema R60.0 and Morbid obesity E66.01 [facility] [place] [address] [id number] [place] [address] Sep, [facility] [place] [address] [place] [id number] [place] [address] Sep, [facility] [place] [address] [id number] [place] [address] Aug, [facility] [place] [address] [place] [id number] [place] [address] Aug, Obesities, morbid E66.01 and Morbid obes ity E66.01 [facility] [place] [address] [place] [id number] [place] [address] Aug, [facility] [address] [place] [address] Jul, [facility] [place] [address] [address] Jul, [facility] [place] [address] [address] Jul, [facility] [place] [address] [address] Jul, Numbness of right hand R20.0 [facility] [place] [address] [address] Jul, [facility] [place] [address] [address] Jul, Numbness of right hand R20.0 [facility] [place] [address] [address] Jul, [facility] [place] [address] [address] Jul, [facility] [place] [address] [address] Jul, Right-sided thoracic back pain M54.6 [facility] [place] [address] [address] Jul, [facility] [place] [address] [address] Jul, [facility] [place] [address] [address] Jul, [facility] [place] [address] [address] Jul, [facility] [place] [address] [address] Jun, [facility] [place] [address] [address] Jun, Acute pain of right shoulder M25.511 ; N umbness of right hand R20.0 and Trapezius muscle spasm M62.838 [facility] [place] [address] [address] Jun, [facility] [place] [address] [address] Jun, [place] [address] [address] Jun, Cough R05 ; BMI 50.0-59.9, adult Z68.43 and Morbid obesity E66.01 [place] [address] [address] Jun, [place] [address] [address] Jun, [facility] [address] [facility] [id number] [place] [address] Jun, BMI 45.0-49.9, adult Z68.42 and Acute non-recurrent maxillary sinusitis J01.00 [facility] [address] [facility] [id number] [place] [address] 09 Jun, 2018 Acute sinusitis J01.90 ; Dys uria R30.0 and BMI 45.0- 49.9, adult Z68.42 [place] [address] [address] Jun, [place] [address] [address] Jun, [place] [address] [address] May, [place] [address] [address] May, [place] [address] [address] May, [place] [address] [address] May, [place] [address] [address] May, [place] [address] [address] Apr, Generalized social phobia F40.11 ; Trich otillomania F63.3 ; Chronic post-traumatic stress disorder (PTSD) F43.12 and BMI 45.0-49.9, adult Z68.42 [place] [address] [address] Apr, [place] [address] [address] Apr, Chronic tension-type headache, intractab le G44.221 [place] [address] [address] Apr, [facility] [address] [facility] [id number] [address] [place] [address] Mar, [facility] N [facility] [id number] [address] [place] [address] Mar, BMI 45.0-49.9, adult Z68.42 and Pimples R23.8 [place] [address] [address] Mar, [place] [address] [address] Mar, [place] [address] [address] Mar, Decreased urination R34 ; Chronic fatigu e R53.82 ; Peripheral edema R60.9 ; Diarrhea, unspecified type R19.7 ; Non-intractable vomiting with nausea, unspecified vomiting type R11.2 ; BMI 45.0-49.9, adult Z68.42 and Chronic post- traumatic stress disorder (PTSD) F43.12 [place] [id number] [address] Mar, Intestinal malabsorption, unspecified K9 0.9 ; Diarrhea, unspecified R19.7 ; Urinary urgency R39.15 ; Rectal bleeding K62.5 and Decreased urine output R34 [place] [address] [address] Mar, Decreased urine output R34 [facility] [place] [address] [address] Mar, Rectal bleeding K62.5 [place] [address] [address] Mar, Rectal bleeding K62.5 [place] [address] [address] Mar, Urinary urgency R39.15 [place] [address] [address] Mar, Urinary urgency R39.15 [place] [address] [address] Mar, Primary osteoarthritis of right knee M17 .11 and BMI 45.0-49.9, adult Z68.42 [place] [address] [address] Mar, [place] [address] [address] Feb, Left upper arm pain M79.622 [place] [address] [address] Feb, [place] [address] [address] Jan, Acute pain of right knee M25.561 ; Right upper quadrant abdominal pain R10.11 and BMI 45.0-49.9, adult Z68.42 [place] [address] [address] Jan, [facility] [place] [id number] [place] [address] Jan, [facility] [place] [address] [address] Dec, [facility] [place] [id number] [place] [address] Dec, Intestinal malabsorption, unspecified K9 0.9 and Diarrhea, unspecified R19.7 [facility] [place] [id number] [place] [address] Dec, [facility] [place] [address] [address] Dec, Strep throat J02.0 ; Intestinal malabsor ption, unspecified K90.9 ; Diarrhea, unspecified R19.7 ; Postoperative seroma involving digestive system after non-digestive system procedure K91.873 ; Hyperlipidemia, mixed E78.2 and BMI 45.0-49.9, adult Z68.42 [facility] [place] [id number] [place] [address] Dec, [facility] [place] [address] [address] Dec, Nausea R11.0 [facility] [place] [id number] [place] [address] Dec, [facility] [address] [facility] [id number] [address] [place] [address] Dec, Sore throat J02.9 ; Strep th roat J02.0 and BMI 45.0- 49.9, adult Z68.42 [facility] [place] [id number] [place] [address] Dec, [facility] [place] [address] [id number] [place] [address] Dec, [facility] [place] [address] [address] Dec, [facility] [place] [id number] [place] [address] Dec, [facility] [place] [address] [address] Dec, [facility] [place] [id number] [place] [address] Dec, [facility] [place] [id number] [place] [address] Dec, [facility] [place] [address] [address] Dec, [facility] [place] [address] [address] Dec, Clostridium difficile colitis A04.72 ; I ntractable vomiting with nausea, unspecified vomiting type R11.2 and BMI 45.0-49.9, adult Z68.42 [place] [address] [address] Dec, [facility] [place] [id number] [place] [address] Nov, [facility] [place] [address] [address] Nov, [facility] [place] [address] [address] Nov, [facility] [place] [id number] [place] [address] Nov, [facility] [address] [facility] [id number] [address] [place] [address] Nov, [facility] [place] [address] [address] Nov, Hyperlipidemia, mixed E78.2 [facility] [address] [facility] [id number] [address] [place] [address] Nov, Acute suppurative otitis med ia of right ear without spontaneous rupture of tympanic membrane, recurrence not specified H66.001 and BMI 45.0-49.9, adult Z68.42 [place] [address] [address] Nov, Hyperlipidemia, mixed E78.2 [place] [address] [address] Nov, [place] [address] [address] Nov, [place] [address] [address] Nov, Nodule of left lung R91.[address] [address] Nov, Medicare annual wellness visit, initial Z00.00 [...] adult Z68.42 and Encounter for immunization Z23 [address] [address] October, [address] [address] October, Nodule of left lung R91.1 [place] [address] [address] October, Nodule of left lung R91.[address] [address] October, Recurrent major depressive disorder, in partial remission F33.41 ; Restless leg syndrome G25.81 ; Generalized social phobia F40.11 ; Chronic post- traumatic stress disorder (PTSD) F43.12 ; BMI 45.0-49.9, adult Z68.42 and Trichotillomania F63.3 [place] [address] [address] October, [place] [address] [address] Sep, Chronic fatigue R53.82 and BMI 45.0-49.9 , adult Z68.42 [place] [address] [address] Aug, [place] [address] [address] Jul, Restless leg syndrome G25.81 and B12 def iciency E53.8 [place] [address] [address] Jul, [place] [address] [address] Jul, [place] [address] [address] Jun, [place] [address] [address] Jun, Fatigue, unspecified type R53.83 ; Histo ry of renal cell carcinoma Z85.528 ; Chronic pancreatitis K86.1 ; Restless leg syndrome G25.81 ; Dark urine R82.99 and BMI 45.0-49.9, adult Z68.42 [place] [address] [address] Jun, [place] [address] [address] Jun, [place] [address] [address] Jun, [place] [address] [address] Jun, [place] [address] [address] May, Chronic post-traumatic stress disorder ( PTSD) F43.12 ; Moderate episode of recurrent major depressive disorder F33.1 ; Trichotillomania F63.3 and Generalized social phobia F40.11 [place] [address] [address] May, [place] [address] [address] May, Chronic post-traumatic stress disorder ( PTSD) F43.12 ; Moderate episode of recurrent major depressive disorder F33.1 ; Trichotillomania F63.3 and Generalized social phobia F40.11 [place] [address] [address] May, Hyperlipidemia, mixed E78.2 ; Morbid (se nehemias) obesity due to excess calories E66.01 ; Chronic post-traumatic stress disorder (PTSD) F43.12 ; Moderate episode of recurrent major depressive disorder F33.1 ; Trichotillomania F63.3 and Generalized social phobia F40.11 [place] [address] [address] 30 Apr, 2017 [place] [address] [address] Apr, Hyperlipidemia, mixed E78.2 ; Morbid (se nehemias) obesity due to excess calories E66.01 ; Chronic post-traumatic stress disorder (PTSD) F43.12 ; Moderate episode of recurrent major depressive disorder F33.1 ; Trichotillomania F63.3 and Generalized social phobia F40.11 [place] [address] [address] Apr, Trichotillomania F63.3 ; Generalized soc ial phobia F40.11 ; Chronic post-traumatic stress disorder (PTSD) F43.12 and Moderate episode of recurrent major depressive disorder F33.1 [place] [address] [address] Apr, [place] [address] [address] Apr, [place] [address] [address] Mar, Moderate episode of recurrent major depr essive disorder F33.1 ; Trichotillomania F63.3 ; Chronic post-traumatic stress disorder (PTSD) F43.12 ; Generalized social phobia F40.11 and Restless leg syndrome G25.81 [place] [address] [address] Mar, [place] [address] [address] Mar, [place] [address] [address] Feb, Left kidney mass N28.89 [place] [address] [address] Jan, [place] [address] [address] Dec, Polydipsia R63.1 ; Chronic pancreatitis K86.1 and Fatigue, unspecified type R53.83 [place] [address] [address] Nov, [place] [address] [address] Nov, [place] [address] [address] Nov, Headache around the eyes R51 [place] [address] [address] Nov, [place] [address] [address] October, STD exposure Z20.2 [place] [address] [address] October, STD exposure Z20.2 [place] [address] [address] 09 May, 2017 Chronic post-traumatic stress disorder ( PTSD) F43.12 ; Generalized social phobia F40.11 ; Trichotillomania F63.3 and Restless leg syndrome G25.81 [place] [address] [address] October, [place] [address] [address] Sep, [place] [address] [address] 17 Aug, 2016 [place] [address] [address] Aug, [place] [address] [address] 08 Aug, 2016 Neck mass R22.[address] [address] Aug, Atelectasis J98.11 [place] [address] [address] 28 Jul, 2016 Hyperlipidemia, mixed E78.2 ; Atypical p neumonia J18.9 and Neck mass R22.1 [place] [address] [address] 15 Jul, 2016 Hemoptysis R04.2 [place] [address] [address] 08 Jul, 2016 Acute non-recurrent pansinusitis J01.40 ; Hemoptysis R04.2 ; Polydipsia R63.1 and Malaise R53.81 [facility] [address] [place] [id number] [address] [place] [address] May, Other viral agents as the ca use of diseases classified elsewhere B97.89 and Acute upper respiratory infection, unspecified J06.9 [facility] [place] [id number] [place] [address] Mar, Nausea R11.0 [facility] [address] [place] [id number] [address] [place] [address] 28 Dec, 2015 Hives L50.9 [place] [address] [address] [id number] [place] [address] 14 Dec, 2015 [facility] WALK IN [place] [address] [address] [facility] [id number] [address] [place] [address] 10 Dec, 2015 Cutaneous abscess of limb, u nspecified L02.419 ; Cellulitis of unspecified part of limb L03.119 ; Encounter for incision and drainage procedure Z01.89 and Encounter for recheck of abscess following i ncision and drainage Z09 [facility] WALK IN [place] [address] [address] [facility] [id number] [address] [place] [address] 09 Dec, 2015 Abscess of leg, right L02.41 5 [place] [address] [address] [id number] [place] [address] 08 Dec, 2015 Cellulitis of unspecified part of limb L 03.119 and Cutaneous abscess of limb, unspecified L02.419 [place] [address] [address] [id number] [place] [address] 06 Dec, 2015 [place] [address] [address] Dec, [facility] [place] [address] [address] [facility] [id number] [address] [place] [address] Aug, [place] [address] [address] [id number] [place] [address] Aug, [facility] WALK [place] [address] [address] [facility] [id number] [address] [place] [address] 04 Jul, 2015 Pain in unspecified wrist M2 5.539 and Back pain, thoracic M54.6 [facility] WALK IN [address] [id number] [address] [place] [address] Jun, Strain of right wrist, initi al encounter S66.911A [place] [address] [address] [id number] [place] [address] 11 Jun, 2015 Chronic pancreatitis, unspecified pancre atitis type K86.1 ; Hirsuties L68.0 ; Morbid (severe) obesity due to excess calories E66.01 ; Chronic pancreatitis K86.1 and Asthma J45.909 [facility] [place] [address] [address] May, [facility] [place] [address] [address] May, Hyperlipidemia, mixed E78.2 and Muscle s pasm of back M62.830 [place] [address] [address] Apr, [place] [address] [address] Apr, Torticollis M43.6 [place] [address] [address] Apr, Right-sided thoracic back pain M54.6 [place] [address] [address] Mar, Rash R21 [place] [address] [address] Mar, [place] [address] [address] Jan, [place] [address] [address] Dec, [place] [address] [address] Dec, Urinary frequency 788.41 and Nocturia mo re than twice per night 788.43 [place] [address] [address] Nov, [facility] [place] [address] [address] Nov, [facility] [place] [address] [address] Nov, Abdominal pain 789.00 [place] [address] [place] [id number] [place] [address] October, TDAP DX V06.1 [facility] [place] [address] [place] [id number] [place] [address] October, [facility] [place] [address] [id number] [place] [address] October, Disturbance of skin sensation 782.0 ; Wr ist pain, right 719.43 ; Hyperlipidemia 272.4 and Skin lesion of face 709.9 [facility] [place] [address] [place] [id number] [place] [address] Sep, [facility] [place] [address] [place] [id number] [place] [address] Sep, [facility] [place] [address] [place] [id number] [place] [address] Aug, [facility] [place] [address] [place] [id number] [place] [address] Aug, [facility] [place] [address] [place] [id number] [place] [address] Aug, [facility] [place] [address] [place] [id number] [place] [address] 23 Aug, 2014 [facility] [place] [address] [place] [id number] [place] [address] Aug, [facility] [place] [address] [place] [id number] [place] [address] 16 Aug, 2014 [facility] [place] [address] [place] [id number] [place] [address] 14 Aug, 2014 [facility] [place] [address] [place] [id number] [place] [address] 14 Aug, 2014 [facility] [place] [address] [place] [id number] [place] [address] Aug, [facility] [place] [address] [place] [id number] [place] [address] Aug, [facility] [place] [address] [place] [id number] [place] [address] Aug, [facility] [address] [facility] [id number] [place] [address] Aug, [facility] [address] [id number] [place] [address] Aug, [facility] [address] [id number] [place] [address] Aug, [facility] [address] [id number] [place] [address] Jul, [facility] [address] [id number] [place] [address] Jul, [facility] [address] [id number] [place] [address] Jul, [facility] [address] [id number] [place] [address] Jul, [facility] [address] [id number] [place] [address] Jul, [facility] [address] [id number] [place] [address] Jul, [facility] [address] [id number] [place] [address] Jun, [facility] [address] [id number] [place] [address] Jun, [facility] [address] [id number] [place] [address] Jun, [facility] [address] [facility] [id number] [place] [address] Jun, [facility] [address] [id number] [place] [address] Jun, [facility] [address] [id number] [place] [address] Jun, [facility] [address] [id number] [place] [address] Jun, [facility] [address] [id number] [place] [address] 15 Jun, 2014 [facility] [address] [id number] [place] [address] May, [facility] [address] [id number] [place] [address] May, [facility] [address] [id number] [place] [address] May, [facility] [address] [id number] [place] [address] May, [facility] [address] [id number] [place] [address] May, [facility] [address] [id number] [place] [address] May, [facility] [address] [id number] [place] [address] May, [facility] [address] [id number] [place] [address] May, [facility] [address] [id number] [place] [address] May, [facility] [address] [id number] [place] [address] May, [facility] [address] [id number] [place] [address] May, [facility] [address] [id number] [place] [address] May, [facility] [address] [id number] [place] [address] Apr, [facility] [address] [id number] [place] [address] Apr, [facility] [address] [id number] [place] [address] Apr, [facility] [address] [id number] [place] [address] Apr, [facility] [address] [facility] [id number] [place] [address] Apr, [facility] [address] [id number] [place] [address] Apr, [facility] [address] [id number] [place] [address] Apr, [facility] [address] [id number] [place] [address] Apr, [facility] [address] [id number] [place] [address] Apr, [facility] [address] [id number] [place] [address] Apr, [facility] [address] [id number] [place] [address] Apr, [facility] [address] [id number] [place] [address] Apr, [facility] [address] [id number] [place] [address] Mar, [facility] [address] [id number] [place] [address] Mar, [facility] [address] [id number] [place] [address] Mar, [facility] [address] [id number] [place] [address] Mar, [facility] [address] [id number] [place] [address] 10 Feb, 2013 [facility] [address] [id number] [place] [address] 10 Feb, 2014 [facility] [address] [id number] [place] [address] 05 Feb, 2014 [facility] [address] [id number] [place] [address] 05 Feb, 2013 [facility] [address] [id number] [facility] [place] [address] 05 Feb, 2013 [facility] [address] [id number] [facility] [place] [address] Feb, 2013 [facility] [address] [facility] [id number] [facility] [place] [address] Jan, [facility] [address] [facility] [id number] [place] [address] Jan, [facility] [address] [facility] [id number] [place] [address] Jan, [facility] [address] [id number] [place] [address] Jan, [facility] [address] [id number] [place] [address] Jan, [facility] [address] [id number] [place] [address] Jan, [facility] [address] [id number] [place] [address] Jan, [facility] [address] [facility] [id number] [place] [address] Jan, [facility] [address] [id number] [place] [address] Jan, [facility] [address] [id number] [place] [address] Jan, [facility] [address] [id number] [place] [address] Jan, [facility] [address] [id number] [place] [address] Jan, [facility] [address] [id number] [place] [address] Jan, [facility] [address] [facility] [id number] [place] [address] Jan, [facility] [address] [id number] [place] [address] Dec, [facility] [address] [facility] [id number] [place] [address] Dec, [facility] [address] [facility] [id number] [place] [address] Dec, [facility] [address] [facility] [id number] [place] [address] Dec, [facility] [address] [id number] [place] [address] Nov, [facility] [address] [facility] [id number] [place] [address] Nov, [facility] [address] [id number] [place] [address] Nov, [facility] [address] [id number] [place] [address] Nov, [facility] [address] [id number] [place] [address] Nov, [facility] [address] [id number] [place] [address] October, [facility] [address] [id number] [place] [address] October, [facility] [address] [id number] [place] [address] October, [facility] [address] [id number] [place] [address] October, [facility] [address] [id number] [place] [address] October, [facility] [address] [id number] [place] [address] October, [facility] [address] [id number] [place] [address] October, [facility] [address] [id number] [place] [address] October, [facility] [address] [id number] [place] [address] October, [facility] [address] [facility] [id number] [facility] [place] [address] October, [facility] [address] [facility] [id number] [facility] [place] [address] October, [facility] [address] [id number] [facility] [place] [address] October, [facility] [address] [facility] [id number] [facility] [place] [address] October, [facility] [address] [facility] [id number] [facility] [place] [address] October, [facility] [address] [id number] [place] [address] Sep, [facility] [address] [id number] [place] [address] Sep, [facility] [address] [id number] [place] [address] Sep, [facility] [address] [facility] [id number] [place] [address] Sep, [facility] [address] [id number] [place] [address] Sep, [facility] [address] [id number] [place] [address] Sep, [facility] [address] [id number] [place] [address] Sep, [facility] [address] [facility] [id number] [facility] [place] [address] Sep, [facility] [address] [id number] [place] [address] Sep, [facility] [address] [id number] [place] [address] Sep, [facility] [address] [id number] [place] [address] Sep, [facility] [address] [id number] [place] [address] Sep, [facility] [address] [id number] [place] [address] Sep, [facility] [address] [id number] [place] [address] Sep, [facility] [address] [id number] [place] [address] Sep, [facility] [address] [id number] [place] [address] Aug, [facility] [address] [id number] [place] [address] Aug, [facility] [address] [id number] [place] [address] Aug, [facility] [address] [id number] [place] [address] Aug, [facility] [address] [id number] [place] [address] Jul, [facility] [address] [id number] [place] [address] Jul, [facility] [address] [id number] [place] [address] Jul, [facility] [address] [id number] [place] [address] Jul, [facility] [address] [id number] [place] [address] Jun, [facility] [address] [id number] [place] [address] Jun, [facility] [address] [id number] [place] [address] Jun, [facility] [address] [id number] [place] [address] Jun, [facility] [address] [id number] [place] [address] 10 Jun, 2013 [facility] [address] [id number] [place] [address] 10 Jun, 2013 [facility] [address] [id number] [place] [address] 08 Jun, 2013 [facility] [address] [id number] [place] [address] 08 Jun, 2013 [facility] [address] [id number] [place] [address] 20 May, 2013 [facility] [address] [facility] [id number] [place] [address] 20 May, 2013 [facility] [address] [id number] [place] [address] 18 May, 2013 [facility] [address] [id number] [place] [address] 18 May, 2013 [facility] [address] [id number] [place] [address] 17 May, 2013 [facility] [address] [facility] [id number] [place] [id number] 17 May, 2013 [facility] [address] [id number] [place] [address] 17 May, 2013 [facility] [address] [id number] [place] [address] 17 May, 2013 [facility] [address] [id number] [place] [address] 16 May, 2013 [facility] [address] [id number] [place] [address] 16 May, 2013 [facility] [address] [id number] [place] [address] 14 May, 2013 [facility] [address] [id number] [place] [address] 14 May, 2013 [facility] [address] [id number] [place] [address] 13 May, 2012 [facility] [address] [id number] [place] [address] May, [facility] [address] [id number] [place] [address] May, [facility] [address] [id number] [place] [address] May, [facility] [address] [id number] [place] [address] May, [facility] [address] [id number] [place] [address] May, [facility] [address] [id number] [place] [address] Apr, [facility] [address] [id number] [place] [address] Apr, [facility] [address] [id number] [place] [address] Apr, [facility] [address] [id number] [place] [address] Apr, [facility] [address] [id number] [place] [address] Aug, [facility] [address] [id number] [place] [address] Aug, [facility] [address] [id number] [place] [address] Aug, [facility] [address] [id number] [place] [address] Aug, [facility] [address] [id number] [place] [address] Jul, [facility] [address] [id number] [place] [address] Jun, [facility] [address] [id number] [place] [address] Jun, [facility] [address] [id number] [place] [address] Jun, [facility] [address] [id number] [place] [address] Jun, [facility] [address] [id number] [place] [address] May, [facility] [address] [id number] [place] [address] May, [facility] [address] [id number] [place] [address] May, [facility] [address] [id number] [place] [address] May, [facility] [address] [id number] [place] [address] May, [facility] [address] [id number] [place] [address] May, [facility] [id number] [place] [address] May, [facility] [id number] [place] [address] Apr, [facility] [address] [id number] [place] [address] Apr, [facility] [id number] [place] [address] Apr, [facility] [id number] [place] [address] Apr, [facility] [id number] [place] [address] Apr, [facility] [address] [id number] [place] [address] Apr, [facility] [id number] [place] [address] Apr, [facility] [address] [id number] [place] [address] Mar, [facility] [id number] [place] [address] Mar, [facility] [address] [facility] [id number] [place] [address] Mar, [facility] [address] [facility] [id number] [place] [address] Mar, [facility] [address] [id number] [place] [address] Mar, [facility] [address] [id number] [place] [address] Mar, [facility] [address] [facility] [id number] [place] [address] Mar, [facility] [address] [id number] [place] [address] Mar, [facility] [address] [id number] [place] [address] Mar, [facility] [address] [id number] [place] [address] Mar, [facility] [address] [id number] [place] [address] Mar, [facility] [address] [id number] [place] [address] Mar, [facility] [address] [id number] [place] [address] Feb, [facility] [address] [id number] [place] [address] Jan, [facility] [address] [id number] [place] [address] Jan, [facility] [address] [id number] [place] [address] Jan, [facility] [address] [id number] [place] [address] Jan, [facility] [address] [id number] [place] [address] Jan, [facility] [address] [id number] [place] [address] Dec, [facility] [id number] [facility] [place] [address] Dec, [facility] [address] [id number] [place] [address] Nov, [facility] [address] [id number] [place] [address] Nov, [facility] [address] [id number] [place] [address] Nov, [facility] [address] [id number] [place] [address] October, [facility] [address] [id number] [place] [address] October, [facility] [address] [id number] [place] [address] October, [facility] [address] [id number] [place] [address] October, [facility] [address] [id number] [place] [address] October, [facility] [address] [id number] [place] [address] October, [facility] [address] [id number] [place] [address] October, [facility] [address] [id number] [place] [address] Sep, [facility] [address] [id number] [place] [address] Sep, [facility] [address] [id number] [place] [address] Sep, [facility] [address] [id number] [place] [address] Sep, [facility] [address] [id number] [place] [address] Sep, [facility] [address] [id number] [place] [address] 19 Sep, 2011 [facility] [address] [id number] [place] [address] 17 Sep, 2011 [facility] [address] [id number] [place] [address] 16 Sep, 2011 [facility] [address] [id number] [place] [address] 16 Sep, 2011 [facility] [address] [id number] [place] [address] 14 Sep, 2011 [facility] [address] [id number] [place] [address] 13 Sep, 2011 [facility] [address] [id number] [place] [address] 10 Sep, 2011 [facility] [address] [id number] [place] [address] 09 Sep, 2011 [facility] [address] [id number] [place] [address] 27 Aug, 2011 [facility] [address] [id number] [place] [address] 12 Aug, 2011 [facility] [address] [id number] [place] [address] 08 Aug, 2011 [facility] [address] [id number] [place] [address] 06 Aug, 2011 [facility] [address] [id number] [place] [address] 28 Jul, 2011 [facility] [address] [id number] [place] [address] 22 Jul, 2011 [facility] [address] [id number] [place] [address] 16 Jul, 2011 [facility] [address] [id number] [place] [address] 15 Jul, 2011 [facility] [address] [id number] [place] [address] 14 Jul, 2011 [facility] [address] [id number] [place] [address] Jul, [facility] [address] [id number] [place] [address] Jun, [facility] [address] [id number] [place] [address] Jun, [facility] [address] [id number] [place] [address] Jun, [facility] [address] [id number] [place] [address] Jun, [facility] [address] [id number] [place] [address] Jun, [facility] [address] [id number] [place] [address] May, [facility] [address] [id number] [place] [address] May, [facility] [address] [id number] [place] [address] May, [facility] [id number] [place] [address] May, [facility] [address] [id number] [place] [address] May, [facility] [address] [id number] [place] [address] May, [facility] [address] [id number] [place] [address] 05 May, 2011 [facility] [address] [id number] [place] [address] 15 Apr, 2011 [facility] [address] [id number] [place] [address] 15 Apr, 2011 [facility] [address] [id number] [place] [address] Apr, [facility] [address] [id number] [place] [address] 07 Apr, 2011 [facility] [address] [id number] [place] [address] Apr, [facility] [address] [id number] [place] [address] Apr, [facility] [address] [id number] [place] [address] Mar, [facility] [address] [id number] [place] [address] Mar, [facility] [address] [id number] [place] [address] Mar, [facility] [address] [id number] [place] [address] Mar, [facility] [address] [id number] [place] [address] Jan, [facility] [address] [id number] [place] [address] Dec, [facility] [address] [id number] [place] [address] Dec, [facility] [address] [id number] [place] [address] October, [facility] [address] [id number] [place] [address] Sep, [facility] [address] [id number] [place] [address] 14 Sep, 2010 [facility] [address] [id number] [place] [address] 17 Jul, 2010 [facility] [address] [id number] [place] [address] 16 Jul, 2010 [facility] [address] [id number] [place] [address] May, [facility] [address] [id number] [place] [address] May, [facility] [address] [id number] [place] [address] May, [facility] [address] [id number] [place] [address] May, [facility] [address] [id number] [place] [address] Apr, [facility] [address] [id number] [place] [address] Apr, [facility] [address] [id number] [place] [address] Apr, [facility] [address] [id number] [place] [address] Apr, [facility] [address] [id number] [place] [address] Apr, [facility] [address] [id number] [place] [address] Mar, [facility] [address] [id number] [place] [address] 14 Mar, 2010 [facility] [address] [id number] [place] [address] Mar, [facility] [address] [id number] [place] [address] Mar, [facility] [address] [id number] [place] [address] Jan, [facility] [address] [id number] [place] [address] 15 Dec, 2009 [facility] [address] [id number] [place] [address] 10 Sep, 2009 [facility] [address] [id number] [place] [address] 08 May, 2009 [facility] [address] [id number] [place] [address] May, [facility] [address] [id number] [place] [address] May, [facility] [place] [address] [address] Apr, [facility] [place] [address] [address] Apr, [facility] [place] [address] [address] Apr, [facility] [place] [address] [address] Apr, [facility] [place] [address] [id number] Apr, [facility] [place] [address] [address] Mar, [facility] [place] [address] [address] Mar, [facility] [place] [address] [address] Jul, IMMUNIZATIONS No Known Immunizations SOCIAL HISTORY Never Assessed REASON FOR VISIT PLAN OF CARE VITAL SIGNS MEDICATIONS Unknown Medications RESULTS No Results PROCEDURES Procedure Date Ordered Result Body Site ECHO EXAM OF ABDOMEN Jun 26, 2013 INSTRUCTIONS MEDICATIONS ADMINISTERED No Known Medications MEDICAL [...] 10/2018 Hospitalization History Cellulitis-[facility] Hospitalization History [facility] [place]- Abd pain 03/07/2017 Hospitalization History [facility] [place]- Abd pain 03/14/2017 Hospitalization History [facility] [place]- No bowel movement, rash 04/13/2017 Hospitalization History [facility] [place]- Abd pain r/ t kidney surgery on 04/10/17 04/17/2017 Hospitalization History [facility] [place]- Abd pain r/ t kidney surgery on 04/10/17 04/18/2017 Hospitalization History [facility] [place]- Lower abd pain 04/17 Hospitalization History [facility] [place]- Cannot urinate 05/17 Hospitalization History [facility] [place]- Pancreatitis Sx Hospitalization History [facility] [place]- Stomach pain 2017 Hospitalization History [facility] [place]- Left side pain 07/19 Hospitalization History [facility] [place]- Incision site infec tion 08/30/2017 Hospitalization History [facility]- Post Op Serom a/Hematoma Left Abdomen. Discharged 09/04/17- Dr Daniel 09/02/2017 Hospitalization History [facility] [place]- Right shoulder and back pain 10/22/2017 Hospitalization History [facility] [place]- Shoulder/Back pain 11/11/2017 Hospitalization History [facility] [place]- Right shoulder blad e pain 12/04/2017 Hospitalization History [facility] [place]- C-Diff 12/13/2017 Hospitalization History C diff et MRSA 12/27/2017 Hospitalization History [facility] Bowel Obstruction 10/2018 Hospitalization History [facility] [place]- Abdominal pain and nausea 01/08/2019
--- OUTSIDE RECORDS SUMMARY | 2019-10-17 05:07 | XMS REPORT ---
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 Name Role Phone OSMAN ALVAREZ Unavailable PROBLEMS Type Condition ICD9-CM Code ZNT35-BF Code Onset Dates Condition S tatus SNOMED Code Problem History of renal cell carcinoma Z85.528 Active 976453352 Problem Hepatic steatosis K76.0 Active 19 6200703 Problem Nodule of left lung R91.1 Active 762995753 Problem Right carpal tunnel syndrome G56.01 A ctive [id number] Problem Mild obstructive sleep apnea G47.33 A ctive 15709338 Problem Chronic fatigue R53.82 Active 8422 9001 Problem Moderate episode of recurrent major depressive disorder F33.1 Active 192932184 Problem Chronic pancreatitis K86.1 Active 414546348 Problem Chronic tension-type headache, intractable G44.221 Active 332275273 Problem Polydipsia R63.1 Active 10660113 Problem Asthma J45.909 Active 184233500 Problem Chronic post-traumatic stress disorder (PTSD) F43. 12 Active 673739483 Problem Atelectasis J98.11 Active 60206080 Problem Trichotillomania F63.3 Active 171 39114 Problem Restless leg syndrome G25.81 Active 42113776 Problem Intestinal malabsorption, unspecified K90.9 Active 17757719 Problem Primary osteoarthritis of right knee M17.11 Active 674501148171286 Problem Menopausal symptoms N95.1 Active 67166398 Problem Generalized social phobia F40.11 Acti ve 97284314 Problem FH: polycystic ovary Z84.2 Active 718934716 Problem Vitamin D deficiency E55.9 Active 76552438 Problem Hirsuties L68.0 Active 530083632 Problem Hyperlipidemia, mixed E78.2 Active 996897548 Problem Social phobia, unspecified F40.10 Act yolanda 81020911 Problem Morbid obesity E66.01 Active 66245 6002 Problem Conflict between patient and family Z63.9 Active 22599708 Problem BMI 45.0-49.9, adult Z68.42 Active 462313652 ALLERGIES No Information ENCOUNTERS Encounter Location Date Diagnosis [place] [address] [address] Aug, Left sided abdominal pain R10.9 [place] [address] [address] Aug, [place] [address] [address] Aug, [place] [address] [address] Jul, Low serum vitamin D R79.89 [place] [address] [address] Jul, [place] [address] [address] Jul, [place] [address] [address] Jul, Chronic fatigue R53.82 ; Restless leg sy ndrome G25.81 ; Vitamin D deficiency E55.9 and Vitamin B deficiency E53.9 [place] [address] [address] Jul, Chronic post-traumatic stress disorder ( PTSD) F43.12 ; Generalized social phobia F40.11 ; Conflict between patient and family Z63.9 ; Trichotillomania F63.3 and BMI 45.0-49.9, adult Z68.42 [place] [address] [address] Jun, [place] [address] [address] Jun, [place] [address] [address] Jun, [place] [address] [address] May, [facility] [address] [place] [address] [address] [place] [address] May, [facility] [address] [id number] [place] [address] May, [facility] [address] [place] [id number] [place] [address] May, [facility] [address] [place] [id number] [place] [address] May, [facility] [address] [id number] [place] [address] Apr, [facility] [address] [place] [id number] [place] [address] Apr, [facility] [address] [place] [id number] [place] [address] Apr, [facility] [address] [place] [id number] [place] [address] Mar, Cervical radiculopathy M54.12 [facility] [address] [place] [id number] [place] [address] Mar, [facility] [address] [place] [id number] [place] [address] Mar, [facility] [address] [place] [id number] [place] [address] Mar, [facility] [address] [place] [id number] [place] [address] Mar, [facility] [address] [id number] [place] [address] Mar, [facility] [address] [place] [id number] [place] [address] Mar, [facility] [address] [id number] [place] [address] Mar, [facility] [address] [place] [id number] [place] [address] Feb, Chronic cough R05 [facility] [address] [address] Feb, [facility] [address] [address] Feb, [facility] [address] [address] Feb, Cervical radiculopathy M54.12 [facility] [address] [address] Feb, Pain of left thumb M79.645 [place] [address] [address] Feb, [facility] [address] [address] Feb, [place] [address] [address] Feb, [place] [address] [address] Feb, Cough present for greater than 3 weeks R 05 [place] [address] [address] Feb, Cough present for greater than 3 weeks R 05 ; Feels sick R68.89 ; History of renal cell carcinoma Z85.528 and Morbid obesity E66.01 [facility] [address] [place] [id number] [place] [address] Jan, [facility] [address] [id number] [place] [id number] Jan, Oral health maintenance status requiring routine preventive dental care K08.9 ; Dental examination Z01.20 and Caries K02.9 [place] [address] [place] [id number] [place] [address] Jan, Dysuria R30.0 [place] [address] [address] Jan, Dysuria R30.0 [place] [address] [address] Jan, Viral pharyngitis J02.9 and Morbid obesi ty E66.01 [place] [address] [address] Jan, [place] [address] [address] Jan, Left sided abdominal pain R10.9 ; Other acute postprocedural pain G89.18 ; History of renal cell carcinoma Z85.528 and Morbid obesity E66.[address] [address] Dec, Dental examination Z01.[address] [address] Dec, Elevated LFTs R94.[address] [address] Dec, Encounter for Medicare annual wellness e xam Z00.00 ; Chronic tension- type headache, intractable G44.221 ; Morbid (severe) obesity due to excess calories E66.01 ; Hyperlipidemia, mixed E78.2 ; Chronic pancreatitis K86.1 ; Asthma J45.909 ; Moderate episode of recurrent major depressive disorder F33.1 ; Chronic fatigue R53.82 and Social phobia, unspecified F40.10 [place] [address] [address] Dec, [place] [address] [address] Dec, [place] [address] [address] Dec, [address] [address] Dec, Hyperlipidemia, mixed E78.2 ; History of renal cell carcinoma Z85.528 and Restless leg syndrome G25.81 [place] [address] [address] Dec, Hyperlipidemia, mixed E78.2 ; Chronic pa ncreatitis K86.1 ; Restless leg syndrome G25.81 ; Nodule of left lung R91.1 ; History of renal cell carcinoma Z85.528 ; Leg swelling M79.89 ; Morbid obesity E66.01 and Observed sleep apnea G47.30 [facility] [address] [place] [id number] [place] [address] Nov, [facility] [address] [address] Nov, [place] [address] [place] [id number] [place] [address] Nov, [facility] [address] [facility] [id number] [address] [place] [address] Nov, Other acute postprocedural p ain G89.18 and Unspecified abdominal pain R10.9 [place] [address] [place] [id number] [place] [address] October, [facility] [address] [address] October, Social phobia, generalized F40.11 ; Conf lict between patient and family Z63.9 and Morbid obesity E66.01 [place] [address] [place] [id number] [place] [address] October, [facility] [address] [place] [address] [place] [address] October, [facility] [address] [address] October, [place] [address] [place] [address] [place] [address] October, [place] [address] [place] [address] October, [facility] [address] [place] [id number] [place] [address] October, [address] [place] [address] October, [facility] [address] [facility] [place] [address] October, Morbid obesity E66.01 ; Routine gynecolo gical examination Z01.419 and Menopausal symptoms N95.1 [facility] [address] [facility] [place] [address] October, [address] [place] [address] Sep, [facility] [address] [place] [id number] [place] [address] Sep, [facility] [address] [place] [id number] [place] [address] Sep, [facility] [address] [place] [id number] [place] [address] Sep, [facility] [address] [place] [id number] [place] [address] Sep, Lower extremity edema R60.0 [facility] [address] [facility] [place] [address] Sep, [facility] [address] [facility] [id number] [address] [place] [address] Sep, Lower extremity edema R60.0 and Morbid obesity E66.01 [facility] [address] [facility] [place] [address] Sep, [facility] [address] [facility] [place] [address] Sep, [facility] [address] [place] [id number] [place] [address] Aug, [facility] [address] [address] Aug, Obesities, morbid E66.01 and Morbid obes ity E66.01 [facility] [address] [place] [id number] [place] [address] Aug, [facility] [address] [place] [address] Jul, [facility] [address] [place] [id number] [place] [address] Jul, [facility] [address] [place] [id number] [place] [address] Jul, [facility] [address] [place] [id number] [place] [address] Jul, Numbness of right hand R20.0 [facility] [address] [place] [id number] [place] [address] Jul, [facility] [address] [place] [id number] [place] [address] Jul, Numbness of right hand R20.0 [facility] [address] [place] [id number] [place] [address] Jul, [facility] [address] [place] [id number] [place] [address] Jul, [facility] [address] [place] [id number] [place] [address] Jul, Right-sided thoracic back pain M54.6 [facility] [address] [place] [id number] [place] [address] Jul, [facility] [address] [place] [id number] [place] [address] Jul, [facility] [address] [place] [id number] [place] [address] Jul, [facility] [address] [place] [id number] [place] [address] Jul, [facility] [address] [place] [id number] [place] [address] Jun, [facility] [address] [address] Jun, Acute pain of right shoulder M25.511 ; N umbness of right hand R20.0 and Trapezius muscle spasm M62.838 [facility] [address] [address] Jun, [facility] [address] [address] Jun, [facility] [address] [address] Jun, Cough R05 ; BMI 50.0-59.9, adult Z68.43 and Morbid obesity E66.01 [place] [address] [address] Jun, [facility] [address] [address] Jun, [facility] [address] [facility] [id number] [place] [address] Jun, BMI 45.0-49.9, adult Z68.42 and Acute non-recurrent maxillary sinusitis J01.00 [facility] [address] [facility] [id number] [place] [address] Jun, Acute sinusitis J01.90 ; Dys uria R30.0 and BMI 45.0- 49.9, adult Z68.42 [facility] [address] [address] Jun, [facility] [address] [address] Jun, [facility] [address] [address] May, [place] [address] [address] May, [facility] [address] [address] May, [facility] [address] [address] May, [place] [address] [address] May, [place] [address] [address] Apr, Generalized social phobia F40.11 ; Trich otillomania F63.3 ; Chronic post-traumatic stress disorder (PTSD) F43.12 and BMI 45.0-49.9, adult Z68.42 [place] [address] [address] Apr, [place] [address] [address] Apr, Chronic tension-type headache, intractab le G44.221 [place] [address] [address] Apr, [facility] [address] [place] [id number] [place] [address] Mar, [facility] [address] [place] [id number] [address] [place] [address] Mar, BMI 45.0-49.9, adult Z68.42 and Pimples R23.8 [place] [address] [address] Mar, [place] [address] [address] Mar, [place] [address] [address] Mar, Decreased urination R34 ; Chronic fatigu e R53.82 ; Peripheral edema R60.9 ; Diarrhea, unspecified type R19.7 ; Non-intractable vomiting with nausea, unspecified vomiting type R11.2 ; BMI 45.0-49.9, adult Z68.42 and Chronic post- traumatic stress disorder (PTSD) F43.12 [place] [address] [address] Mar, Intestinal malabsorption, unspecified K9 0.9 ; Diarrhea, unspecified R19.7 ; Urinary urgency R39.15 ; Rectal bleeding K62.5 and Decreased urine output R34 [facility] [address] [address] Mar, Decreased urine output R34 [facility] [address] [address] Mar, Rectal bleeding K62.5 [facility] [address] [address] Mar, Rectal bleeding K62.5 [place] [address] [address] Mar, Urinary urgency R39.15 [place] [address] [address] Mar, Urinary urgency R39.15 [place] [address] [address] Mar, Primary osteoarthritis of right knee M17 .11 and BMI 45.0-49.9, adult Z68.42 [place] [address] [address] Mar, [place] [address] [address] Feb, Left upper arm pain M79.622 [place] [address] [address] Feb, [place] [address] [address] Jan, Acute pain of right knee M25.561 ; Right upper quadrant abdominal pain R10.11 and BMI 45.0-49.9, adult Z68.42 [facility] [address] [address] Jan, [place] [address] [address] Jan, [facility] [address] [place] [id number] [place] [address] Dec, [facility] [address] [place] [id number] [place] [address] Dec, Intestinal malabsorption, unspecified K9 0.9 and Diarrhea, unspecified R19.7 [facility] [address] [place] [id number] [place] [address] Dec, [facility] [address] [address] Dec, Strep throat J02.0 ; Intestinal malabsor ption, unspecified K90.9 ; Diarrhea, unspecified R19.7 ; Postoperative seroma involving digestive system after non-digestive system procedure K91.873 ; Hyperlipidemia, mixed E78.2 and BMI 45.0-49.9, adult Z68.42 [facility] [address] [place] [id number] [place] [address] Dec, [facility] [address] [place] [id number] [place] [address] Dec, Nausea R11.0 [facility] [address] [place] [id number] [place] [address] Dec, [facility] [address] [facility] [id number] [address] [place] [address] Dec, Sore throat J02.9 ; Strep th roat J02.0 and BMI 45.0- 49.9, adult Z68.42 [facility] [address] [place] [id number] [place] [address] Dec, [facility] [address] [place] [id number] [place] [address] Dec, [facility] [address] [place] [id number] [place] [address] Dec, [facility] [address] [place] [id number] [place] [address] Dec, [facility] [address] [place] [address] [place] [address] Dec, [facility] [address] [address] Dec, [facility] [address] [address] Dec, [facility] [address] [address] Dec, [facility] [address] [address] Dec, Clostridium difficile colitis A04.72 ; I ntractable vomiting with nausea, unspecified vomiting type R11.2 and BMI 45.0-49.9, adult Z68.42 [place] [address] [address] Dec, [place] [address] [address] Nov, [facility] [address] [address] Nov, [facility] [address] [address] Nov, [place] [address] [address] Nov, [facility] [address] [facility] [id number] [address] [place] [address] Nov, [facility] [address] [address] Nov, Hyperlipidemia, mixed E78.2 [facility] [address] [facility] [id number] [address] [place] [address] Nov, Acute suppurative otitis med ia of right ear without spontaneous rupture of tympanic membrane, recurrence not specified H66.001 and BMI 45.0-49.9, adult Z68.42 [facility] [address] [address] Nov, Hyperlipidemia, mixed E78.2 [place] [address] [address] Nov, [place] [address] [address] Nov, [place] [address] [address] Nov, Nodule of left lung R91.1 [place] [address] [address] Nov, Medicare annual wellness visit, initial Z00.00 [...] and Encounter for immunization Z23 [place] [address] [address] October, [address] [address] October, Nodule of left lung R91.1 [place] [address] [address] October, Nodule of left lung R91.1 [place] [address] [address] October, Recurrent major depressive disorder, in partial remission F33.41 ; Restless leg syndrome G25.81 ; Generalized social phobia F40.11 ; Chronic post- traumatic stress disorder (PTSD) F43.12 ; BMI 45.0-49.9, adult Z68.42 and Trichotillomania F63.3 [place] [address] [address] October, [place] [address] [address] Sep, Chronic fatigue R53.82 and BMI 45.0-49.9 , adult Z68.42 [place] [address] [address] Aug, [place] [address] [address] Jul, Restless leg syndrome G25.81 and B12 def iciency E53.8 [place] [address] [address] Jul, [place] [address] [address] Jul, [place] [address] [address] Jun, [address] [address] Jun, Fatigue, unspecified type R53.83 ; Histo ry of renal cell carcinoma Z85.528 ; Chronic pancreatitis K86.1 ; Restless leg syndrome G25.81 ; Dark urine R82.99 and BMI 45.0-49.9, adult Z68.42 [place] [address] [address] Jun, [place] [address] [address] Jun, [place] [address] [address] Jun, [place] [address] [address] Jun, [address] [address] May, Chronic post-traumatic stress disorder ( PTSD) F43.12 ; Moderate episode of recurrent major depressive disorder F33.1 ; Trichotillomania F63.3 and Generalized social phobia F40.11 [place] [address] [address] May, [place] [address] [address] May, Chronic post-traumatic stress disorder ( PTSD) F43.12 ; Moderate episode of recurrent major depressive disorder F33.1 ; Trichotillomania F63.3 and Generalized social phobia F40.11 [place] [address] [address] May, 2017 Hyperlipidemia, mixed E78.2 ; Morbid (se nehemias) obesity due to excess calories E66.01 ; Chronic post-traumatic stress disorder (PTSD) F43.12 ; Moderate episode of recurrent major depressive disorder F33.1 ; Trichotillomania F63.3 and Generalized social phobia F40.11 [place] [address] [address] 30 Apr, 2017 [place] [address] [address] Apr, Hyperlipidemia, mixed E78.2 ; Morbid (se nehemias) obesity due to excess calories E66.01 ; Chronic post-traumatic stress disorder (PTSD) F43.12 ; Moderate episode of recurrent major depressive disorder F33.1 ; Trichotillomania F63.3 and Generalized social phobia F40.11 [place] [address] [address] Apr, Trichotillomania F63.3 ; Generalized soc ial phobia F40.11 ; Chronic post-traumatic stress disorder (PTSD) F43.12 and Moderate episode of recurrent major depressive disorder F33.1 [place] [address] [address] 15 Apr, 2017 [place] [address] [address] Apr, [place] [address] [address] Mar, Moderate episode of recurrent major depr essive disorder F33.1 ; Trichotillomania F63.3 ; Chronic post-traumatic stress disorder (PTSD) F43.12 ; Generalized social phobia F40.11 and Restless leg syndrome G25.81 [place] [address] [address] Mar, [place] [address] [address] Mar, [place] [address] [address] Feb, Left kidney mass N28.[address] [address] Jan, [place] [address] [address] Dec, Polydipsia R63.1 ; Chronic pancreatitis K86.1 and Fatigue, unspecified type R53.83 [place] [address] [address] Nov, [place] [address] [address] Nov, [place] [address] [address] Nov, Headache around the eyes R51 [place] [address] [address] Nov, [place] [address] [address] October, STD exposure Z20.2 [place] [address] [address] October, STD exposure Z20.2 [place] [address] [address] October, Chronic post-traumatic stress disorder ( PTSD) F43.12 ; Generalized social phobia F40.11 ; Trichotillomania F63.3 and Restless leg syndrome G25.81 [place] [address] [address] October, [place] [address] [address] Sep, [place] [address] [address] Aug, [place] [address] [address] Aug, [place] [address] [address] Aug, Neck mass R22.1 [place] [address] [address] Aug, Atelectasis J98.11 [place] [address] [address] 28 Jul, 2016 Hyperlipidemia, mixed E78.2 ; Atypical p neumonia J18.9 and Neck mass R22.1 [place] [address] [address] 15 Jul, 2016 Hemoptysis R04.2 [place] [address] [address] 08 Jul, 2016 Acute non-recurrent pansinusitis J01.40 ; Hemoptysis R04.2 ; Polydipsia R63.1 and Malaise R53.81 [facility] [place] [id number] [place] [address] May, Other viral agents as the ca use of diseases classified elsewhere B97.89 and Acute upper respiratory infection, unspecified J06.9 [facility] WALK IN [place] [id number] [address] [place] [address] Mar, Nausea R11.0 [facility] WALK IN [address] [address] Dec, Hives L50.9 [place] [address] [address] 14 Dec, 2015 [facility] WALK IN [place] [address] [address] 10 Dec, 2015 Cutaneous abscess of limb, u nspecified L02.419 ; Cellulitis of unspecified part of limb L03.119 ; Encounter for incision and drainage procedure Z01.89 and Encounter for recheck of abscess following i ncision and drainage Z09 [facility] WALK IN [place] [address] [address] 09 Dec, 2015 Abscess of leg, right L02.41 5 [place] [address] [address] 08 Dec, 2015 Cellulitis of unspecified part of limb L 03.119 and Cutaneous abscess of limb, unspecified L02.419 [place] [address] [address] Dec, [place] [address] [address] Dec, [facility] IN [place] [address] [address] Aug, [place] [address] [address] Aug, [facility] WALK IN [place] [address] [address] 04 Jul, 2015 Pain in unspecified wrist M2 5.539 and Back pain, thoracic M54.6 [facility]ALK IN [place] [address] [address] [place] [id number] [address] [place] [address] 13 Jun, 2015 Strain of right wrist, initi al encounter S66.911A [place] [address] [address] 11 Jun, 2015 Chronic pancreatitis, unspecified pancre atitis type K86.1 ; Hirsuties L68.0 ; Morbid (severe) obesity due to excess calories E66.01 ; Chronic pancreatitis K86.1 and Asthma J45.909 [facility] [address] [address] May, [facility] [address] [address] May, Hyperlipidemia, mixed E78.2 and Muscle s pasm of back M62.830 [facility] [address] [address] Apr, [facility] [address] [address] Apr, Torticollis M43.6 [facility] [address] [address] Apr, Right-sided thoracic back pain M54.6 [facility] [address] [address] Mar, Rash R21 [facility] [address] [address] Mar, [facility] [address] [address] Jan, [facility] [address] [address] Dec, [facility] [address] [address] Dec, Urinary frequency 788.41 and Nocturia mo re than twice per night 788.43 [facility] [address] [address] Nov, [facility] [address] [address] Nov, [facility] [address] [address] Nov, Abdominal pain 789.00 [facility] [address] [address] October, TDAP DX V06.1 [facility] [address] [place] [id number] [place] [address] October, [facility] [address] [place] [id number] [place] [address] October, Disturbance of skin sensation 782.0 ; Wr ist pain, right 719.43 ; Hyperlipidemia 272.4 and Skin lesion of face 709.9 [facility] [address] [place] [id number] [place] [address] Sep, [facility] [address] [place] [id number] [place] [address] Sep, [facility] [address] [place] [id number] [place] [address] Aug, [facility] [address] [place] [id number] [place] [address] Aug, [facility] [address] [place] [id number] [place] [address] Aug, [facility] [address] [place] [id number] [place] [address] Aug, [facility] [address] [place] [id number] [place] [address] Aug, [facility] [address] [place] [id number] [place] [address] 16 Aug, 2014 [facility] [address] [place] [id number] [place] [address] 14 Aug, 2014 [facility] [address] [place] [id number] [place] [address] 14 Aug, 2014 [facility] [address] [place] [id number] [place] [address] Aug, [facility] [address] [place] [id number] [place] [address] Aug, [facility] [address] [place] [id number] [place] [address] 04 Aug, 2014 [facility] [address] [place] [id number] [place] [address] Aug, [facility] [address] [id number] [place] [address] Aug, [facility] [address] [id number] [place] [address] Aug, [facility] [address] [id number] [place] [address] Jul, [facility] [address] [id number] [place] [address] Jul, [facility] [address] [id number] [place] [address] Jul, [facility] [address] [id number] [place] [address] Jul, [facility] [address] [id number] [place] [address] Jul, [facility] [address] [id number] [place] [address] Jul, [facility] [address] [id number] [place] [address] Jun, [facility] [address] [id number] [place] [address] Jun, [facility] [address] [id number] [place] [address] Jun, [facility] [address] [id number] [place] [address] Jun, [facility] [address] [id number] [place] [address] Jun, [facility] [address] [id number] [place] [address] Jun, [facility] [address] [id number] [place] [address] Jun, [facility] [address] [id number] [place] [address] Jun, [facility] [address] [id number] [place] [address] May, [facility] [address] [id number] [place] [address] May, [facility] [address] [id number] [place] [address] May, [facility] [address] [id number] [place] [address] May, [facility] [address] [id number] [place] [address] May, [facility] [address] [id number] [place] [address] May, [facility] [address] [id number] [place] [address] May, [facility] [address] [id number] [place] [address] May, [facility] [address] [id number] [place] [address] May, [facility] [address] [id number] [place] [address] May, [facility] [address] [id number] [place] [address] May, [facility] [address] [id number] [place] [address] May, [facility] [address] [id number] [place] [address] Apr, [facility] [address] [id number] [place] [address] Apr, [facility] [address] [place] [id number] [place] [address] Apr, [facility] [address] [id number] [place] [address] Apr, [facility] [address] [id number] [place] [address] Apr, [facility] [address] [facility] [id number] [place] [address] Apr, [facility] [address] [id number] [place] [address] Apr, [facility] [address] [id number] [place] [address] Apr, [facility] [address] [id number] [place] [address] Apr, [facility] [address] [facility] [id number] [place] [address] Apr, [facility] [address] [id number] [place] [address] Apr, [facility] [address] [id number] [place] [address] Apr, [facility] [address] [id number] [place] [address] Mar, [facility] [address] [id number] [place] [address] Mar, [facility] [address] [id number] [place] [address] Mar, [facility] [address] [id number] [place] [address] Mar, [facility] [address] [id number] [place] [address] 10 Feb, 2013 [facility] [address] [id number] [place] [address] 10 Feb, 2013 [facility] [address] [id number] [place] [address] 05 Sep, 2013 [facility] [address] [id number] [place] [address] 05 Sep, 2013 [facility] [address] [id number] [place] [address] 05 Sep, 2013 [facility] [address] [id number] [place] [address] Feb, [facility] [address] [id number] [facility] [place] [address] Jan, [facility] [address] [facility] [id number] [place] [address] Jan, [facility] [address] [id number] [place] [address] Jan, [facility] [address] [id number] [place] [address] Jan, [facility] [address] [id number] [place] [address] Jan, [facility] [address] [id number] [place] [address] Jan, [facility] [address] [id number] [place] [address] Jan, [facility] [address] [id number] [place] [address] Jan, [facility] [address] [id number] [place] [address] Jan, [facility] [address] [id number] [place] [address] Jan, [facility] [address] [id number] [place] [address] Jan, [facility] [address] [id number] [place] [address] Jan, [facility] [address] [id number] [place] [address] Jan, [facility] [address] [id number] [place] [address] Jan, [facility] [address] [id number] [place] [address] Dec, [facility] [address] [id number] [place] [address] Dec, [facility] [address] [facility] [id number] [place] [address] Dec, [facility] [address] [id number] [place] [address] Dec, [facility] [address] [id number] [place] [address] Nov, [facility] [address] [id number] [place] [address] Nov, [facility] [address] [facility] [id number] [place] [address] Nov, [facility] [address] [id number] [place] [address] Nov, [facility] [address] [id number] [place] [address] Nov, [facility] [address] [id number] [place] [address] October, [facility] [address] [id number] [place] [address] October, [facility] [address] [id number] [place] [address] October, [facility] [address] [id number] [place] [address] October, [facility] [address] [id number] [place] [address] October, [facility] [address] [id number] [place] [address] October, [facility] [address] [id number] [place] [address] October, [facility] [address] [id number] [place] [address] October, [facility] [address] [id number] [place] [address] October, [facility] [address] [id number] [place] [address] October, [facility] [address] [id number] [place] [address] October, [facility] [address] [facility] [id number] [facility] [place] [address] October, [facility] [address] [id number] [place] [address] October, [facility] [address] [id number] [place] [address] October, [facility] [address] [facility] [id number] [place] [address] Sep, [facility] [address] [id number] [place] [address] Sep, [facility] [address] [id number] [place] [address] Sep, [facility] [address] [id number] [place] [address] Sep, [facility] [address] [id number] [place] [address] Sep, [facility] [address] [id number] [place] [address] Sep, [facility] [address] [id number] [place] [address] Sep, [facility] [address] [id number] [place] [address] Sep, [facility] [address] [facility] [id number] [place] [address] Sep, [facility] [address] [id number] [place] [address] Sep, [facility] [address] [id number] [place] [address] Sep, [facility] [address] [id number] [place] [address] Sep, [facility] [address] [id number] [facility] [address] Sep, [facility] [address] [facility] [id number] [place] [address] Sep, [facility] [address] [id number] [place] [address] Sep, [facility] [address] [id number] [place] [address] Aug, [facility] [address] [id number] [place] [address] Aug, [facility] [address] [id number] [place] [address] Aug, [facility] [address] [id number] [place] [address] Aug, [facility] [address] [id number] [place] [address] Jul, [facility] [address] [id number] [place] [address] Jul, [facility] [address] [id number] [place] [address] Jul, [facility] [address] [id number] [place] [address] Jul, [facility] [address] [id number] [place] [address] Jun, [facility] [address] [id number] [place] [address] Jun, [facility] [address] [id number] [place] [address] Jun, [facility] [address] [id number] [place] [address] Jun, [facility] [address] [id number] [place] [address] Jun, [facility] [address] [id number] [place] [address] Jun, [facility] [address] [id number] [place] [address] 08 Jun, 2013 [facility] [address] [id number] [place] [address] 08 Jun, 2013 [facility] [address] [id number] [place] [address] 20 May, 2013 [facility] [address] [id number] [place] [address] 20 May, 2013 [facility] [address] [id number] [place] [address] 18 May, 2013 [facility] [address] [id number] [place] [address] 18 May, 2013 [facility] [address] [id number] [place] [address] 17 May, 2013 [facility] [address] [id number] [place] [id number] 17 May, 2013 [facility] [address] [id number] [place] [address] 17 May, 2013 [facility] [address] [id number] [place] [address] 17 May, 2013 [facility] [address] [id number] [place] [address] 16 May, 2013 [facility] [address] [id number] [place] [address] 16 May, 2013 [facility] [address] [id number] [place] [address] 14 May, 2013 [facility] [address] [id number] [place] [address] 14 May, 2013 [facility] [address] [id number] [place] [address] 13 May, 2013 [facility] [address] [id number] [place] [address] 13 May, 2013 [facility] [address] [id number] [place] [address] May, [facility] [address] [id number] [place] [address] May, [facility] [address] [id number] [place] [address] May, [facility] [address] [id number] [place] [address] May, [facility] [address] [id number] [place] [address] Apr, [facility] [address] [facility] [id number] [place] [address] Apr, [facility] [address] [id number] [place] [address] Apr, [facility] [address] [id number] [place] [address] Apr, [facility] [address] [id number] [place] [address] Aug, [facility] [address] [id number] [place] [address] Aug, [facility] [address] [id number] [place] [address] Aug, [facility] [address] [id number] [place] [address] Aug, [facility] [address] [id number] [place] [address] Jul, [facility] [address] [id number] [place] [address] Jun, [facility] [address] [id number] [place] [address] Jun, [facility] [address] [id number] [place] [address] Jun, [facility] [address] [id number] [place] [address] Jun, [facility] [address] [id number] [place] [address] May, [facility] [address] [id number] [place] [address] May, [facility] [address] [id number] [place] [address] May, [facility] [address] [id number] [place] [address] May, [facility] [address] [id number] [place] [address] May, [facility] [address] [id number] [place] [address] May, [facility] [address] [id number] [place] [address] May, [facility] [id number] [place] [address] Apr, [facility] [id number] [place] [address] Apr, [facility] [address] [id number] [place] [address] Apr, [facility] [id number] [place] [address] Apr, [facility] [id number] [place] [address] Apr, [facility] [address] [id number] [place] [address] Apr, [facility] [address] [id number] [place] [address] Apr, [facility] [id number] [place] [address] Mar, [facility] [address] [id number] [place] [address] Mar, [facility] [id number] [place] [address] Mar, [facility] [address] [facility] [id number] [place] [address] Mar, 2011 [facility] [address] [facility] [id number] [place] [address] Mar, 2011 [facility] [address] [id number] [place] [address] Mar, 2011 [facility] [address] [id number] [place] [address] Mar, 2011 [facility] [address] [facility] [id number] [place] [address] Mar, 2011 [facility] [address] [id number] [place] [address] Mar, [facility] [address] [id number] [place] [address] Mar, [facility] [address] [id number] [place] [address] Mar, [facility] [address] [id number] [place] [address] Mar, [facility] [address] [id number] [place] [address] Feb, [facility] [address] [id number] [place] [address] Jan, [facility] [address] [id number] [place] [address] Jan, [facility] [address] [id number] [place] [address] Jan, [facility] [address] [id number] [place] [address] Jan, [facility] [address] [id number] [place] [address] Jan, [facility] [address] [id number] [place] [address] Dec, [facility] [address] [id number] [place] [address] Dec, [facility] [address] [id number] [place] [address] Nov, [facility] [address] [id number] [place] [address] Nov, [facility] [address] [id number] [place] [address] Nov, [facility] [address] [id number] [place] [address] October, [facility] [address] [id number] [place] [address] October, [facility] [address] [id number] [place] [address] October, [facility] [address] [id number] [place] [address] October, [facility] [address] [id number] [place] [address] October, [facility] [address] [id number] [place] [address] October, [facility] [address] [id number] [place] [address] October, [facility] [address] [id number] [place] [address] Sep, [facility] [address] [id number] [place] [address] Sep, [facility] [address] [id number] [place] [address] Sep, [facility] [address] [id number] [place] [address] Sep, [facility] [address] [id number] [place] [address] Sep, [facility] [address] [id number] [place] [address] Sep, [facility] [address] [id number] [place] [address] 17 Sep, 2011 [facility] [address] [id number] [facility] [place] [address] 16 Sep, 2011 [facility] [address] [id number] [facility] [place] [address] 16 Sep, 2011 [facility] [address] [id number] [facility] [place] [address] 14 Sep, 2011 [facility] [address] [id number] [facility] [place] [address] 13 Sep, 2011 [facility] [address] [id number] [facility] [place] [address] 10 Sep, 2011 [facility] [address] [id number] [place] [address] 09 Sep, 2011 [facility] [address] [id number] [place] [address] 27 Aug, 2011 [facility] [address] [id number] [place] [address] 12 Aug, 2011 [facility] [address] [id number] [facility] [place] [address] 08 Aug, 2011 [facility] [address] [id number] [place] [address] 06 Aug, 2011 [facility] [address] [id number] [place] [address] 28 Jul, 2011 [facility] [address] [id number] [place] [address] 22 Jul, 2011 [facility] [address] [facility] [id number] [place] [address] 16 Jul, 2011 [facility] [address] [id number] [place] [address] 15 Jul, 2011 [facility] [address] [id number] [place] [address] 14 Jul, 2011 [facility] [address] [id number] [place] [address] Jul[facility] [address] [id number] [place] [address] Jun, [facility] [address] [id number] [place] [address] Jun, [facility] [address] [id number] [place] [address] Jun, [facility] [address] [id number] [place] [address] Jun, [facility] [address] [id number] [place] [address] Jun, [facility] [address] [id number] [place] [address] May, [facility] [address] [id number] [place] [address] May, [facility] [address] [id number] [place] [address] May, [facility] [address] [id number] [place] [address] May, [facility] [address] [id number] [place] [address] May, [facility] [address] [id number] [place] [address] May, [facility] [address] [id number] [place] [address] May, [facility] [address] [id number] [place] [address] 15 Apr, 2011 [facility] [address] [id number] [place] [address] Apr, [facility] [address] [id number] [place] [address] Apr, [facility] [address] [id number] [place] [address] Apr, [facility] [address] [id number] [place] [address] Apr, [facility] [address] [id number] [facility] [address] Apr, [facility] [address] [id number] [place] [address] Mar, [facility] [address] [id number] [place] [address] Mar, [facility] [address] [id number] [place] [address] Mar, [facility] [address] [id number] [place] [address] Mar, [facility] [address] [id number] [place] [address] Jan, [facility] [address] [id number] [place] [address] Dec, [facility] [address] [id number] [place] [address] Dec, [facility] [address] [id number] [place] [address] October, [facility] [address] [id number] [place] [address] Sep, [facility] [address] [id number] [place] [address] 14 Sep, 2010 [facility] [address] [id number] [place] [address] Jul, [facility] [address] [id number] [place] [address] Jul, [facility] [address] [id number] [place] [address] May, [facility] [address] [id number] [place] [address] May, [facility] [address] [id number] [place] [address] May, [facility] [address] [id number] [place] [address] May, [facility] [address] [id number] [place] [address] Apr, [facility] [address] [id number] [place] [address] Apr, [facility] [address] [id number] [place] [address] Apr, [facility] [address] [id number] [place] [address] Apr, [facility] [address] [id number] [place] [address] Apr, [facility] [address] [id number] [place] [address] Mar, [facility] [address] [id number] [place] [address] 14 Mar, 2010 [facility] [address] [id number] [place] [address] Mar, [facility] [address] [id number] [place] [address] Mar, [facility] [address] [id number] [place] [address] Jan, [facility] [address] [id number] [place] [address] 15 Dec, 2009 [facility] [address] [id number] [place] [address] 10 Sep, 2009 [facility] [address] [id number] [place] [address] 08 May, 2009 [facility] [address] [id number] [place] [address] May, [facility] [address] [id number] [place] [address] May, [facility] [address] [id number] [place] [address] Apr, [facility] [id number] [place] [address] Apr, [facility] [address] [address] Apr, [facility] [id number] [place] [address] Apr, [facility] [address] [address] Apr, [facility] [address] [address] Mar, [facility] [address] [id number] Mar, [facility] [address] [address] Jul, IMMUNIZATIONS No Known Immunizations SOCIAL HISTORY Never Assessed REASON FOR VISIT PLAN OF CARE VITAL SIGNS Height 62 in 2013-09-12 Weight 251.19 lbs 2013-09-12 Temperature 97.8 degrees Fahrenheit 2013-09-12 Heart Rate 93 bpm 2013-09-12 Respiratory Rate 24 2013-09-12 Blood pressure systolic 130 mmHg 2013-09-12 Blood pressure diastolic 84 mmHg 2013-09-12 MEDICATIONS Unknown Medications RESULTS No Results PROCEDURES Procedure Date Ordered Result Body Site MEASURE BLOOD OXYGEN LEVEL September 12, 2013 INSTRUCTIONS MEDICATIONS ADMINISTERED No Known Medications [...] and replaced VC 10/2018 Hospitalization History Cellulitis-[facility]- Abd pain 03/07/2017 [facility]- Abd pain 03/14/2017 [facility]- No bowel movement, rash 04/13/2017 [facility]- Abd pain r/ t kidney surgery on 04/10/17 04/17/2017 [facility]- Abd pain r/ t kidney surgery on 04/10/17 04/18/2017 [facility]- Lower abd pain 04/17 [facility]- Cannot urinate 05/17 Hospital[facility]- Pancreatitis Sx [facility]- Stomach pain 2017 [facility]- Left side pain 07/19 [facility]ization [facility]- Incision site infec tion 08/30/2017 Hospitalization History [facility]- Post Op Serom a/Hematoma Left Abdomen. Discharged 09/04/17- Dr Daniel 09/02/2017 [facility]- Right shoulder and back pain 10/22/2017 [facility]ization [facility]- Shoulder/Back pain 11/11/2017 [facility]- Right shoulder blad e pain 12/04/2017 [facility]ization [facility]- C-Diff 12/13/2017 Hospitalization History C diff et MRSA 12/27/2017 Hospitalization History [facility] Bowel Obstruction 10/2018 [facility]- Abdominal pain and nausea 01/08/2019
[2019-10-17] MEDS ORDERED: ONDANSETRON 4 MG/2 ML (SDV) Z0FRAN ONE (05:08)
--- OUTSIDE RECORDS SUMMARY | 2019-10-17 05:08 | XMS REPORT ---
Author Author Janeth GIBBS [facility] Address [address] [place] [address] Care Team Providers Care Travertine Installer Name Role Phone SAI CARMEN Unavailable PROBLEMS Type Condition ICD9-CM Code [id number] Code Onset Dates Condition S tatus SNOMED Code Problem History of renal cell carcinoma Z85.528 Active 389038082 Problem Hepatic steatosis K76.0 Active 19 8079211 Problem Nodule of left lung R91.1 Active 311649470 Problem Right carpal tunnel syndrome G56.01 A ctive 655403428161731 Problem Mild obstructive sleep apnea G47.33 A ctive 34925509 Problem Chronic fatigue R53.82 Active 8422 9001 Problem Moderate episode of recurrent major depressive disorder F33.1 Active 997749886 Problem Chronic pancreatitis K86.1 Active 953335662 Problem Chronic tension-type headache, intractable G44.221 Active 121526820 Problem Polydipsia R63.1 Active 38497670 Problem Asthma J45.909 Active 105986066 Problem Chronic post-traumatic stress disorder (PTSD) F43. 12 Active 890128808 Problem Atelectasis J98.11 Active 68591250 Problem Trichotillomania F63.3 Active 171 20650 Problem Restless leg syndrome G25.81 Active 39449310 Problem Intestinal malabsorption, unspecified K90.9 Active 19652947 Problem Primary osteoarthritis of right knee M17.11 Active 646505528432537 Problem Menopausal symptoms N95.1 Active 70710346 Problem Generalized social phobia F40.11 Acti ve 70196633 Problem FH: polycystic ovary Z84.2 Active 943236355 Problem Vitamin D deficiency E55.9 Active 65798846 Problem Hirsuties L68.0 Active 496749736 Problem Hyperlipidemia, mixed E78.2 Active 971928342 Problem Social phobia, unspecified F40.10 Act yolanda 67579973 Problem Morbid obesity E66.01 Active 18850 6002 Problem Conflict between patient and family Z63.9 Active 72366483 Problem BMI 45.0-49.9, adult Z68.42 Active 121897164 ALLERGIES No Information ENCOUNTERS Encounter Location Date Diagnosis [place] [address] [address] Aug, Left sided abdominal pain R10.9 [place] [address] [address] Aug, [place] [address] [address] Aug, [place] [address] [address] Jul, Low serum vitamin D R79.89 [place] [address] [address] Jul, [place] [address] [address] Jul, [place] [address] [address] Jul, Chronic fatigue R53.82 ; Restless leg sy ndrome G25.81 ; Vitamin D deficiency E55.9 and Vitamin B deficiency E53.9 [place] [address] [address] 06 Jul, 2019 Chronic post-traumatic stress disorder ( PTSD) F43.12 ; Generalized social phobia F40.11 ; Conflict between patient and family Z63.9 ; Trichotillomania F63.3 and BMI 45.0-49.9, adult Z68.42 [place] [address] [address] Jun, [place] [address] [address] Jun, [place] [address] [address] Jun, [place] [address] [place] [address] May, [facility] [place] [address] [place] [address] May, [facility] [address] [id number] [place] [address] May, [facility] [address] [place] [id number] [place] [address] May, [facility] [address] [place] [id number] [place] [address] May, [facility] [address] [id number] [place] [address] Apr, [facility] [address] [place] [id number] [place] [address] Apr, [facility] [address] [place] [id number] [place] [address] Apr, [facility] [address] [place] [id number] [place] [address] Mar, Cervical radiculopathy M54.12 [facility] [address] [place] [id number] [place] [address] Mar, [facility] [address] [place] [id number] [place] [address] Mar, [facility] [address] [place] [id number] [place] [address] Mar, [facility] [address] [place] [id number] [place] [address] Mar, [facility] [address] [place] [id number] [place] [address] Mar, [facility] [address] [place] [id number] [place] [address] Mar, [facility] [address] [id number] [place] [address] Mar, [facility] [address] [place] [id number] [place] [address] Feb, Chronic cough R05 [facility] [place] [address] [address] Feb, [facility] [place] [address] [address] Feb, [facility] [place] [address] [address] Feb, Cervical radiculopathy M54.12 [place] [address] [address] 17 Feb, 2019 Pain of left thumb M79.645 [place] [address] [address] Feb, [place] [address] [address] Feb, [place] [address] [address] Feb, [place] [address] [address] Feb, Cough present for greater than 3 weeks R 05 [place] [address] [address] Feb, Cough present for greater than 3 weeks R 05 ; Feels sick R68.89 ; History of renal cell carcinoma Z85.528 and Morbid obesity E66.01 [place] [address] [place] [id number] [place] [address] Jan, [facility] [address] [facility] [place] [id number] Jan, Oral health maintenance status requiring routine preventive dental care K08.9 ; Dental examination Z01.20 and Caries K02.9 [place] [address] [place] [id number] [place] [address] Jan, Dysuria R30.0 [place] [address] [address] Jan, Dysuria R30.0 [place] [address] [address] Jan, Viral pharyngitis J02.9 and Morbid obesi ty E66.01 [place] [address] [address] Jan, [place] [address] [address] Jan, Left sided abdominal pain R10.9 ; Other acute postprocedural pain G89.18 ; History of renal cell carcinoma Z85.528 and Morbid obesity E66.01 [place] [address] [address] Dec, Dental examination Z01.[address] [address] Dec, Elevated LFTs R94.[address] [address] Dec, Encounter for Medicare annual wellness e xam Z00.00 ; Chronic tension- type headache, intractable G44.221 ; Morbid (severe) obesity due to excess calories E66.01 ; Hyperlipidemia, mixed E78.2 ; Chronic pancreatitis K86.1 ; Asthma J45.909 ; Moderate episode of recurrent major depressive disorder F33.1 ; Chronic fatigue R53.82 and Social phobia, unspecified F40.10 [place] [address] [address] Dec, [place] [address] [address] Dec, [place] [address] [address] Dec, [place] [address] [address] Dec, Hyperlipidemia, mixed E78.2 ; History of renal cell carcinoma Z85.528 and Restless leg syndrome G25.[address] [place] [address] Dec, Hyperlipidemia, mixed E78.2 ; Chronic pa ncreatitis K86.1 ; Restless leg syndrome G25.81 ; Nodule of left lung R91.1 ; History of renal cell carcinoma Z85.528 ; Leg swelling M79.89 ; Morbid obesity E66.01 and Observed sleep apnea G47.30 [facility] [place] [address] [address] Nov, [facility] [place] [address] [address] Nov, [place] [address] [address] Nov, [facility] [address] [facility] [id number] [place] [address] Nov, Other acute postprocedural p ain G89.18 and Unspecified abdominal pain R10.9 [facility] [place] [address] [address] October, [facility] [place] [address] [address] October, Social phobia, generalized F40.11 ; Conf lict between patient and family Z63.9 and Morbid obesity E66.01 [place] [address] [place] [id number] [place] [address] October, [facility] [place] [address] [address] October, [facility] [place] [address] [address] October, [facility] [place] [address] [address] October, [facility] [place] [address] [place] [address] October, [facility] [place] [address] [address] October, [address] [place] [address] October, [facility] [place] [address] [place] [id number] [place] [address] October, Morbid obesity E66.01 ; Routine gynecolo gical examination Z01.419 and Menopausal symptoms N95.1 [facility] [place] [address] [id number] [place] [address] October, [address] [place] [address] Sep, [facility] [place] [address] [place] [id number] [place] [address] Sep, [facility] [place] [address] [address] Sep, [facility] [place] [address] [place] [id number] [place] [address] Sep, [facility] [place] [address] [address] Sep, Lower extremity edema R60.0 [facility] [place] [address] [id number] [place] [address] Sep, [facility] [address] [facility] [id number] [address] [place] [address] Sep, Lower extremity edema R60.0 and Morbid obesity E66.01 [facility] [place] [address] [id number] [place] [address] Sep, [facility] [place] [address] [place] [id number] [place] [address] Sep, [facility] [place] [address] [place] [id number] [place] [address] Aug, [facility] [place] [address] [address] Aug, Obesities, morbid E66.01 and Morbid obes ity E66.01 [facility] [place] [address] [place] [address] Aug, [facility] [place] [address] [place] [address] Jul, [facility] [address] [place] [id number] [place] [address] Jul, [facility] [address] [address] Jul, [facility] [address] [place] [id number] [place] [address] Jul, Numbness of right hand R20.0 [facility] [address] [address] Jul, [facility] [address] [address] Jul, Numbness of right hand R20.0 [facility] [place] [address] [place] [id number] [place] [address] Jul, [facility] [address] [place] [id number] [place] [address] Jul, [facility] [address] [place] [id number] [place] [address] Jul, Right-sided thoracic back pain M54.6 [facility] [address] [place] [id number] [place] [address] Jul, [facility] [address] [place] [id number] [place] [address] Jul, [facility] [address] [place] [id number] [place] [address] Jul, [facility] [address] [address] Jul, [facility] [address] [place] [id number] [place] [address] Jun, [facility] [address] [address] Jun, Acute pain of right shoulder M25.511 ; N umbness of right hand R20.0 and Trapezius muscle spasm M62.838 [facility] [place] [address] [address] Jun, [facility] [place] [address] [address] Jun, [facility] [place] [address] [address] Jun, Cough R05 ; BMI 50.0-59.9, adult Z68.43 and Morbid obesity E66.01 [place] [address] [address] Jun, [place] [address] [address] Jun, [facility] [address] [facility] [id number] [address] [place] [address] Jun, BMI 45.0-49.9, adult Z68.42 and Acute non-recurrent maxillary sinusitis J01.00 [facility] [address] [facility] [id number] [address] [place] [address] 09 Jun, 2018 Acute sinusitis J01.90 ; Dys uria R30.0 and BMI 45.0- 49.9, adult Z68.42 [place] [address] [address] Jun, [facility] [place] [address] [address] Jun, [place] [address] [address] May, [place] [address] [address] May, [facility] [place] [address] [address] May, [place] [address] [address] May, [place] [address] [address] May, [place] [address] [address] Apr, Generalized social phobia F40.11 ; Trich otillomania F63.3 ; Chronic post-traumatic stress disorder (PTSD) F43.12 and BMI 45.0-49.9, adult Z68.42 [place] [address] [address] Apr, [place] [address] [address] Apr, Chronic tension-type headache, intractab le G44.221 [place] [address] [address] Apr, [facility] [address] [place] [id number] [place] [address] Mar, [facility] [address] [address] Mar, BMI 45.0-49.9, adult Z68.42 and Pimples R23.8 [place] [address] [address] Mar, [place] [address] [address] Mar, [place] [address] [address] Mar, Decreased urination R34 ; Chronic fatigu e R53.82 ; Peripheral edema R60.9 ; Diarrhea, unspecified type R19.7 ; Non-intractable vomiting with nausea, unspecified vomiting type R11.2 ; BMI 45.0-49.9, adult Z68.42 and Chronic post- traumatic stress disorder (PTSD) F43.12 [place] [address] [address] Mar, Intestinal malabsorption, unspecified K9 0.9 ; Diarrhea, unspecified R19.7 ; Urinary urgency R39.15 ; Rectal bleeding K62.5 and Decreased urine output R34 [facility] [place] [address] [address] Mar, Decreased urine output R34 [facility] [place] [address] [address] Mar, Rectal bleeding K62.5 [facility] [place] [address] [address] Mar, Rectal bleeding K62.5 [place] [address] [address] Mar, Urinary urgency R39.15 [place] [address] [address] Mar, Urinary urgency R39.15 [place] [address] [address] Mar, Primary osteoarthritis of right knee M17 .11 and BMI 45.0-49.9, adult Z68.42 [place] [address] [address] Mar, [place] [address] [address] Feb, Left upper arm pain M79.622 [place] [address] [address] Feb, [place] [address] [address] Jan, Acute pain of right knee M25.561 ; Right upper quadrant abdominal pain R10.11 and BMI 45.0-49.9, adult Z68.42 [place] [address] [address] Jan, [facility] [place] [address] [address] Jan, [facility] [place] [address] [place] [id number] [place] [address] Dec, [facility] [place] [address] [address] Dec, Intestinal malabsorption, unspecified K9 0.9 and Diarrhea, unspecified R19.7 [facility] [place] [address] [address] Dec, [facility] [place] [address] [address] Dec, Strep throat J02.0 ; Intestinal malabsor ption, unspecified K90.9 ; Diarrhea, unspecified R19.7 ; Postoperative seroma involving digestive system after non-digestive system procedure K91.873 ; Hyperlipidemia, mixed E78.2 and BMI 45.0-49.9, adult Z68.42 [facility] [place] [address] [address] Dec, [facility] [place] [address] [address] Dec, Nausea R11.0 [facility] [place] [address] [address] Dec, [facility] [address] [facility] [id number] [address] [place] [address] Dec, Sore throat J02.9 ; Strep th roat J02.0 and BMI 45.0- 49.9, adult Z68.42 [facility] [place] [address] [place] [id number] [place] [address] Dec, [facility] [place] [address] [address] Dec, [facility] [place] [address] [address] Dec, [facility] [place] [address] [address] Dec, [facility] [place] [address] [address] Dec, [facility] [place] [address] [address] Dec, [facility] [place] [address] [address] Dec, [facility] [place] [address] [address] Dec, [facility] [place] [address] [address] Dec, Clostridium difficile colitis A04.72 ; I ntractable vomiting with nausea, unspecified vomiting type R11.2 and BMI 45.0-49.9, adult Z68.42 [place] [address] [address] Dec, [place] [address] [address] Nov, [facility] [place] [address] [address] Nov, [place] [address] [address] Nov, [place] [address] [address] Nov, [facility] [address] [facility] [id number] [address] [place] [address] Nov, [facility] [place] [address] [address] Nov, Hyperlipidemia, mixed E78.2 [facility] [address] [facility] [id number] [address] [place] [address] Nov, Acute suppurative otitis med ia of right ear without spontaneous rupture of tympanic membrane, recurrence not specified H66.001 and BMI 45.0-49.9, adult Z68.42 [facility] [place] [address] [address] Nov, Hyperlipidemia, mixed E78.2 [place] [address] [address] Nov, [place] [address] [address] Nov, [place] [address] [address] Nov, Nodule of left lung R91.1 [place] [address] [address] Nov, Medicare annual wellness visit, initial Z00.00 [...] and Encounter for immunization Z23 [place] [address] [address] October, [address] [address] October, Nodule of left lung R91.[address] [address] October, Nodule of left lung R91.1 [place] [address] [address] October, Recurrent major depressive disorder, in partial remission F33.41 ; Restless leg syndrome G25.81 ; Generalized social phobia F40.11 ; Chronic post- traumatic stress disorder (PTSD) F43.12 ; BMI 45.0-49.9, adult Z68.42 and Trichotillomania F63.3 [place] [address] [address] October, [place] [address] [address] Sep, Chronic fatigue R53.82 and BMI 45.0-49.9 , adult Z68.42 [place] [address] [address] Aug, [place] [address] [address] Jul, Restless leg syndrome G25.81 and B12 def iciency E53.8 [place] [address] [address] Jul, [place] [address] [address] Jul, [place] [address] [address] Jun, [place] [address] [address] Jun, Fatigue, unspecified type R53.83 ; Histo ry of renal cell carcinoma Z85.528 ; Chronic pancreatitis K86.1 ; Restless leg syndrome G25.81 ; Dark urine R82.99 and BMI 45.0-49.9, adult Z68.42 [place] [address] [address] Jun, [place] [address] [address] Jun, [place] [address] [address] Jun, [place] [address] [address] Jun, [place] [address] [address] May, Chronic post-traumatic stress disorder ( PTSD) F43.12 ; Moderate episode of recurrent major depressive disorder F33.1 ; Trichotillomania F63.3 and Generalized social phobia F40.11 [place] [address] [address] May, [place] [address] [address] 14 May, 2017 Chronic post-traumatic stress disorder ( PTSD) F43.12 ; Moderate episode of recurrent major depressive disorder F33.1 ; Trichotillomania F63.3 and Generalized social phobia F40.11 [place] [address] [address] 07 May, 2017 Hyperlipidemia, mixed E78.2 ; Morbid (se nehemias) obesity due to excess calories E66.01 ; Chronic post-traumatic stress disorder (PTSD) F43.12 ; Moderate episode of recurrent major depressive disorder F33.1 ; Trichotillomania F63.3 and Generalized social phobia F40.11 [place] [address] [address] 30 Apr, 2017 [place] [address] [address] 29 Apr, 2017 Hyperlipidemia, mixed E78.2 ; Morbid (se nehemias) obesity due to excess calories E66.01 ; Chronic post-traumatic stress disorder (PTSD) F43.12 ; Moderate episode of recurrent major depressive disorder F33.1 ; Trichotillomania F63.3 and Generalized social phobia F40.11 [place] [address] [address] Apr, Trichotillomania F63.3 ; Generalized soc ial phobia F40.11 ; Chronic post-traumatic stress disorder (PTSD) F43.12 and Moderate episode of recurrent major depressive disorder F33.1 [place] [address] [address] 15 Apr, 2017 [place] [address] [address] 06 Apr, 2017 [place] [address] [address] Mar, Moderate episode of recurrent major depr essive disorder F33.1 ; Trichotillomania F63.3 ; Chronic post-traumatic stress disorder (PTSD) F43.12 ; Generalized social phobia F40.11 and Restless leg syndrome G25.81 [place] [address] [address] Mar, [place] [address] [address] Mar, [place] [address] [address] Feb, Left kidney mass N28.[address] [address] Jan, [place] [address] [address] Dec, Polydipsia R63.1 ; Chronic pancreatitis K86.1 and Fatigue, unspecified type R53.83 [place] [address] [address] [address] [address] Nov, [place] [address] [address] Nov, [place] [address] [address] Nov, Headache around the eyes R51 [address] [address] Nov, [place] [address] [address] October, STD exposure Z20.2 [place] [address] [address] October, STD exposure Z20.2 [place] [address] [address] October, Chronic post-traumatic stress disorder ( PTSD) F43.12 ; Generalized social phobia F40.11 ; Trichotillomania F63.3 and Restless leg syndrome G25.81 [place] [address] [address] October, [place] [address] [address] Sep, [place] [address] [address] Aug, [place] [address] [address] Aug, [place] [address] [address] 08 Aug, 2016 Neck mass R22.1 [place] [address] [address] 03 Aug, 2016 Atelectasis J98.11 [place] [address] [address] 28 Jul, 2016 Hyperlipidemia, mixed E78.2 ; Atypical p neumonia J18.9 and Neck mass R22.1 [place] [address] [address] 15 Jul, 2016 Hemoptysis R04.2 [place] [address] [address] 08 Jul, 2016 Acute non-recurrent pansinusitis J01.40 ; Hemoptysis R04.2 ; Polydipsia R63.1 and Malaise R53.81 [facility] [address] [place] [id number] [address] [place] [address] May, Other viral agents as the ca use of diseases classified elsewhere B97.89 and Acute upper respiratory infection, unspecified J06.9 [facility] [address] [place], [place] [id number] [address] [place] [address] Mar, Nausea R11.0 [facility] IN [address] [address] Dec, Hives L50.9 [place] [address] [id number] [place] [address] 14 Dec, 2015 [facility] [place] [address] [place] [address] 10 Dec, 2015 Cutaneous abscess of limb, u nspecified L02.419 ; Cellulitis of unspecified part of limb L03.119 ; Encounter for incision and drainage procedure Z01.89 and Encounter for recheck of abscess following i ncision and drainage Z09 [facility] [place] [address] [address] [place] [id number] [place] [address] 09 Dec, 2015 Abscess of leg, right L02.41 5 [place] [address] [address] 08 Dec, 2015 Cellulitis of unspecified part of limb L 03.119 and Cutaneous abscess of limb, unspecified L02.419 [place] [address] [address] 06 Dec, 2015 [place] [address] [address] Dec, [facility] [place] [address] [address] Aug, [place] [address] [address] Aug, [facility] [place] [address] [address] [place] [id number] [place] [address] 04 Jul, 2015 Pain in unspecified wrist M2 5.539 and Back pain, thoracic M54.6 [facility] [place] [id number] [place] [address] 13 Jun, 2015 Strain of right wrist, initi al encounter S66.911A [place] [address] [place] [id number] [place] [address] 11 Jun, 2015 Chronic pancreatitis, unspecified pancre atitis type K86.1 ; Hirsuties L68.0 ; Morbid (severe) obesity due to excess calories E66.01 ; Chronic pancreatitis K86.1 and Asthma J45.909 [facility] [place] [address] [address] May, [place] [address] [address] May, Hyperlipidemia, mixed E78.2 and Muscle s pasm of back M62.830 [place] [address] [address] Apr, [facility] [place] [address] [address] Apr, Torticollis M43.6 [place] [address] [address] Apr, Right-sided thoracic back pain M54.6 [place] [address] [address] Mar, Rash R21 [place] [address] [address] Mar, [facility] [place] [address] [address] Jan, [place] [address] [address] Dec, [place] [address] [address] Dec, Urinary frequency 788.41 and Nocturia mo re than twice per night 788.43 [place] [address] [address] Nov, [facility] [place] [address] [address] Nov, [facility] [place] [address] [address] Nov, Abdominal pain 789.00 [place] [address] [address] October, TDAP DX V06.1 [facility] [place] [address] [place] [id number] [place] [address] October, [facility] [place] [address] [place] [id number] [place] [address] October, Disturbance of skin sensation 782.0 ; Wr ist pain, right 719.43 ; Hyperlipidemia 272.4 and Skin lesion of face 709.9 [facility] [place] [address] [place] [id number] [place] [address] Sep, [facility] [place] [address] [place] [id number] [place] [address] Sep, [facility] [place] [address] [place] [id number] [place] [address] Aug, [facility] [place] [address] [place] [id number] [place] [address] Aug, [facility] [place] [address] [place] [id number] [place] [address] Aug, [facility] [place] [address] [id number] [place] [address] Aug, [facility] [place] [address] [place] [id number] [place] [address] Aug, [facility] [place] [address] [id number] [place] [address] 16 Aug, 2014 [facility] [place] [address] [place] [id number] [place] [address] Aug, [facility] [place] [address] [id number] [place] [address] 14 Aug, 2014 [facility] [place] [address] [place] [id number] [place] [address] Aug, [facility] [place] [address] [id number] [place] [address] Aug, [facility] [place] [address] [id number] [place] [address] Aug, [facility] [place] [address] [place] [id number] [place] [address] Aug, [facility] [address] [facility] [id number] [place] [address] Aug, [facility] [address] [id number] [place] [address] Aug, [facility] [address] [id number] [place] [address] Jul, [facility] [address] [id number] [place] [address] Jul, [facility] [address] [id number] [place] [address] Jul, [facility] [address] [id number] [place] [address] Jul, [facility] [address] [id number] [place] [address] Jul, [facility] [address] [id number] [place] [address] Jul, [facility] [address] [id number] [place] [address] Jun, [facility] [address] [id number] [place] [address] Jun, [facility] [address] [id number] [place] [address] Jun, [facility] [address] [id number] [place] [address] Jun, [facility] [address] [id number] [place] [address] Jun, [facility] [address] [id number] [place] [address] Jun, [facility] [address] [id number] [place] [address] Jun, [facility] [address] [id number] [place] [address] Jun, [facility] [address] [id number] [place] [address] May, [facility] [address] [id number] [place] [address] May, [facility] [address] [id number] [place] [address] May, [facility] [address] [id number] [place] [address] May, [facility] [address] [id number] [place] [address] May, [facility] [address] [id number] [place] [address] May, [facility] [address] [id number] [place] [address] May, [facility] [address] [id number] [place] [address] May, [facility] [address] [id number] [place] [address] May, [facility] [address] [id number] [place] [address] May, [facility] [address] [id number] [place] [address] May, [facility] [address] [id number] [place] [address] May, [facility] [address] [id number] [place] [address] Apr, [facility] [address] [id number] [place] [address] Apr, [facility] [address] [id number] [place] [address] Apr, [facility] [address] [id number] [place] [address] Apr, [facility] [address] [id number] [place] [address] Apr, [facility] [address] [facility] [id number] [place] [address] Apr, [facility] [address] [id number] [place] [address] Apr, [facility] [address] [id number] [place] [address] Apr, [facility] [address] [id number] [place] [address] Apr, [facility] [address] [id number] [place] [address] Apr, [facility] [address] [id number] [place] [address] Apr, [facility] [address] [id number] [place] [address] Apr, [facility] [address] [id number] [place] [address] Mar, [facility] [address] [id number] [place] [address] Mar, [facility] [address] [id number] [place] [address] Mar, [facility] [address] [id number] [place] [address] Mar, [facility] [address] [id number] [place] [address] 10 Feb, 2013 [facility] [address] [facility] [id number] [place] [address] 10 Feb, 2013 [facility] [address] [id number] [place] [address] 05 Sep, 2013 [facility] [address] [id number] [place] [address] 05 Sep, 2013 [facility] [address] [id number] [place] [address] 05 Sep, 2013 [facility] [address] [id number] [facility] [place] [address] Feb, [facility] [address] [id number] [facility] [place] [address] Jan, [facility] [address] [facility] [id number] [place] [address] Jan, [facility] [address] [facility] [id number] [place] [address] Jan, [facility] [address] [facility] [id number] [place] [address] Jan, [facility] [address] [id number] [place] [address] Jan, [facility] [address] [id number] [place] [address] Jan, [facility] [address] [id number] [place] [address] Jan, [facility] [address] [id number] [place] [address] Jan, [facility] [address] [facility] [id number] [place] [address] Jan, [facility] [address] [id number] [place] [address] Jan, [facility] [address] [id number] [place] [address] Jan, [facility] [address] [facility] [id number] [place] [address] Jan, [facility] [address] [id number] [place] [address] Jan, [facility] [address] [id number] [place] [address] Jan, [facility] [address] [facility] [id number] [place] [address] Dec, [facility] [address] [id number] [place] [address] Dec, [facility] [address] [facility] [id number] [place] [address] Dec, [facility] [address] [facility] [id number] [place] [address] Dec, [facility] [address] [id number] [place] [address] Nov, [facility] [address] [id number] [place] [address] Nov, [facility] [address] [facility] [id number] [place] [address] Nov, [facility] [address] [id number] [place] [address] Nov, [facility] [address] [id number] [place] [address] Nov, [facility] [address] [id number] [place] [address] October, [facility] [address] [id number] [place] [address] October, [facility] [address] [id number] [place] [address] October, [facility] [address] [id number] [place] [address] October, [facility] [address] [id number] [place] [address] October, [facility] [address] [id number] [place] [address] October, [facility] [address] [id number] [place] [address] October, [facility] [address] [id number] [place] [address] October, [facility] [address] [id number] [place] [address] October, [facility] [address] [id number] [place] [address] October, [facility] [address] [facility] [id number] [facility] [place] [address] October, [facility] [address] [facility] [id number] [facility] [address] October, [facility] [address] [id number] [facility] [place] [address] October, [facility] [address] [facility] [id number] [facility] [place] [address] October, [facility] [address] [facility] [id number] [facility] [address] Sep, [facility] [address] [id number] [place] [address] Sep, [facility] [address] [id number] [place] [address] Sep, [facility] [address] [id number] [place] [address] Sep, [facility] [address] [id number] [place] [address] Sep, [facility] [address] [id number] [place] [address] Sep, [facility] [address] [id number] [place] [address] Sep, [facility] [address] [id number] [place] [address] Sep, [facility] [address] [facility] [id number] [place] [address] Sep, [facility] [address] [id number] [place] [address] Sep, [facility] [address] [id number] [place] [address] Sep, [facility] [address] [id number] [place] [address] Sep, [facility] [address] [id number] [place] [address] Sep, [facility] [address] [id number] [place] [address] Sep, [facility] [address] [id number] [place] [address] Sep, [facility] [address] [id number] [place] [address] Aug, [facility] [address] [id number] [place] [address] Aug, [facility] [address] [id number] [place] [address] Aug, [facility] [address] [id number] [place] [address] Aug, [facility] [address] [id number] [place] [address] Jul, [facility] [address] [id number] [place] [address] Jul, [facility] [address] [id number] [place] [address] Jul, [facility] [address] [id number] [place] [address] Jul, [facility] [address] [id number] [place] [address] Jun, [facility] [address] [id number] [place] [address] Jun, [facility] [address] [id number] [place] [address] Jun, [facility] [address] [id number] [place] [address] Jun, [facility] [address] [id number] [place] [address] Jun, [facility] [address] [id number] [place] [address] 10 Jun, 2013 [facility] [address] [id number] [place] [address] 08 Jun, 2013 [facility] [address] [id number] [place] [address] 08 Jun, 2013 [facility] [address] [id number] [place] [address] 20 May, 2013 [facility] [address] [id number] [place] [address] 20 May, 2013 [facility] [address] [id number] [place] [address] 18 May, 2013 [facility] [address] [id number] [place] [address] 18 May, 2013 [facility] [address] [id number] [place] [address] 17 May, 2013 [facility] [address] [facility] [id number] [place] [id number] 17 May, 2013 [facility] [address] [id number] [place] [address] 17 May, 2013 [facility] [address] [id number] [place] [address] 17 May, 2013 [facility] [address] [id number] [place] [address] 16 May, 2013 [facility] [address] [id number] [place] [address] 16 May, 2013 [facility] [address] [id number] [place] [address] 14 May, 2013 [facility] [address] [id number] [place] [address] 14 May, 2013 [facility] [address] [id number] [place] [address] 13 May, 2013 [facility] [address] [id number] [place] [address] 13 May, 2013 [facility] [address] [id number] [place] [address] May, [facility] [address] [id number] [place] [address] May, [facility] [address] [id number] [place] [address] May, [facility] [address] [id number] [place] [address] May, [facility] [address] [id number] [place] [address] Apr, [facility] [address] [id number] [place] [address] Apr, [facility] [address] [id number] [place] [address] Apr, [facility] [address] [id number] [place] [address] Apr, [facility] [address] [id number] [place] [address] Aug, [facility] [address] [id number] [place] [address] Aug, [facility] [address] [id number] [place] [address] Aug, [facility] [address] [id number] [place] [address] Aug, [facility] [address] [id number] [place] [address] Jul, [facility] [address] [id number] [place] [address] Jun, [facility] [address] [id number] [place] [address] Jun, [facility] [address] [id number] [place] [address] Jun, [facility] [address] [id number] [place] [address] Jun, [facility] [address] [id number] [place] [address] May, [facility] [address] [id number] [place] [address] May, [facility] [address] [id number] [place] [address] May, [facility] [address] [id number] [place] [address] May, [facility] [address] [id number] [place] [address] May, [facility] [address] [id number] [place] [address] May, [facility] [address] [id number] [place] [address] May, [facility] [id number] [place] [address] Apr, [facility] [id number] [place] [address] Apr, [facility] [address] [id number] [place] [address] Apr, [facility] [id number] [place] [address] Apr, [facility] [id number] [place] [address] Apr, [facility] [id number] [place] [address] Apr, [facility] [address] [id number] [place] [address] Apr, [facility] [id number] [place] [address] Mar, [facility] [address] [id number] [place] [address] Mar, [facility] [id number] [place] [address] Mar, 2011 [facility] [address] [facility] [id number] [place] [address] Mar, 2011 [facility] [address] [facility] [id number] [place] [address] Mar, 2011 [facility] [address] [id number] [place] [address] Mar, 2011 [facility] [address] [id number] [place] [address] Mar, [facility] [address] [facility] [id number] [place] [address] Mar, 2011 [facility] [address] [id number] [place] [address] Mar, [facility] [address] [id number] [place] [address] Mar, [facility] [address] [id number] [place] [address] Mar, [facility] [address] [id number] [place] [address] Mar, [facility] [address] [id number] [place] [address] Feb, [facility] [address] [id number] [place] [address] Jan, [facility] [address] [id number] [place] [address] Jan, [facility] [address] [id number] [place] [address] Jan, [facility] [address] [id number] [place] [address] Jan, [facility] [address] [id number] [place] [address] Jan, [facility] [address] [id number] [place] [address] Dec, [facility] [address] [id number] [place] [address] Dec, [facility] [address] [id number] [facility] [place] [address] Nov, [facility] [address] [id number] [place] [address] Nov, [facility] [address] [id number] [place] [address] Nov, [facility] [address] [id number] [place] [address] October, [facility] [address] [id number] [place] [address] October, [facility] [address] [id number] [place] [address] October, [facility] [address] [id number] [place] [address] October, [facility] [address] [id number] [place] [address] October, [facility] [address] [id number] [place] [address] October, [facility] [address] [id number] [place] [address] October, [facility] [address] [id number] [place] [address] Sep, [facility] [address] [id number] [place] [address] Sep, [facility] [address] [id number] [place] [address] Sep, [facility] [address] [id number] [place] [address] Sep, [facility] [address] [id number] [place] [address] Sep, [facility] [address] [id number] [place] [address] Sep, [facility] [address] [id number] [place] [address] 17 Sep, 2011 [facility] [address] [id number] [place] [address] 16 Sep, 2011 [facility] [address] [id number] [place] [address] 16 Sep, 2011 [facility] [address] [id number] [place] [address] 14 Sep, 2011 [facility] [address] [id number] [place] [address] 13 Sep, 2011 [facility] [address] [id number] [place] [address] 10 Sep, 2011 [facility] [address] [id number] [place] [address] 09 Sep, 2011 [facility] [address] [id number] [place] [address] 27 Aug, 2011 [facility] [address] [id number] [place] [address] 12 Aug, 2011 [facility] [address] [id number] [place] [address] 08 Aug, 2011 [facility] [address] [id number] [place] [address] 06 Aug, 2011 [facility] [address] [id number] [place] [address] 28 Jul, 2011 [facility] [address] [id number] [place] [address] 22 Jul, 2011 [facility] [address] [id number] [place] [address] 16 Jul, 2011 [facility] [address] [id number] [place] [address] 15 Jul, 2011 [facility] [address] [id number] [place] [address] 14 Jul, 2011 [facility] [address] [id number] [place] [address] Jul, [facility] [address] [id number] [place] [address] Jun, [facility] [address] [id number] [place] [address] Jun, [facility] [address] [id number] [place] [address] Jun, [facility] [address] [id number] [place] [address] Jun, [facility] [address] [id number] [place] [address] Jun, [facility] [address] [id number] [place] [address] May, [facility] [address] [id number] [place] [address] May, [facility] [address] [id number] [place] [address] May, [facility] [address] [id number] [place] [address] May, [facility] [address] [id number] [place] [address] May, [facility] [address] [id number] [place] [address] May, [facility] [address] [id number] [place] [address] May, [facility] [address] [id number] [place] [address] Apr, [facility] [address] [id number] [place] [address] Apr, [facility] [address] [id number] [place] [address] Apr, [facility] [address] [id number] [place] [address] Apr, [facility] [address] [id number] [facility] [place] [address] Apr, [facility] [address] [facility] [id number] [facility] [place] [address] Apr, [facility] [address] [id number] [facility] [place] [address] Mar, [facility] [address] [id number] [place] [address] Mar, [facility] [address] [id number] [place] [address] Mar, [facility] [address] [id number] [place] [address] Mar, [facility] [address] [id number] [place] [address] Jan, [facility] [address] [id number] [place] [address] Dec, [facility] [address] [id number] [place] [address] Dec, [facility] [address] [id number] [place] [address] October, [facility] [address] [id number] [place] [address] Sep, [facility] [address] [id number] [place] [address] 14 Sep, 2010 [facility] [address] [id number] [place] [address] Jul, [facility] [address] [id number] [place] [address] 16 Jul, 2010 [facility] [address] [id number] [place] [address] May, [facility] [address] [id number] [place] [address] May, [facility] [address] [id number] [place] [address] 08 May, 2010 [facility] [address] [id number] [place] [address] May, [facility] [address] [id number] [place] [address] Apr, [facility] [address] [id number] [place] [address] Apr, [facility] [address] [id number] [place] [address] Apr, [facility] [address] [id number] [place] [address] Apr, [facility] [address] [id number] [place] [address] Apr, [facility] [address] [id number] [place] [address] Mar, [facility] [address] [id number] [place] [address] 14 Mar, 2010 [facility] [address] [id number] [place] [address] Mar, [facility] [address] [id number] [place] [address] Mar, [facility] [address] [id number] [place] [address] Jan, [facility] [address] [id number] [place] [address] 15 Dec, 2009 [facility] [address] [id number] [place] [address] 10 Sep, 2009 [facility] [address] [id number] [place] [address] May, [facility] [address] [id number] [place] [address] May, [facility] [address] [id number] [place] [address] May, [facility] [address] [id number] [place] [address] Apr, [facility] [place] [id number] [place] [address] Apr, [facility] [place] [id number] [place] [address] Apr, [facility] [place] [address] [address] Apr, [facility] [place] [address] [address] Apr, [facility] [place] [address] [address] Mar, [facility] [place] [address] [address] Mar, [facility] [place] [address] [address] Jul, IMMUNIZATIONS No Known Immunizations SOCIAL HISTORY Never Assessed REASON FOR VISIT PLAN OF CARE VITAL SIGNS Height 62 in 2013-09-03 Weight 252.9 lbs 2013-09-03 Temperature 98.2 degrees Fahrenheit 2013-09-03 Heart Rate 88 bpm 2013-09-03 Respiratory Rate 24 2013-09-03 Blood pressure systolic 138 mmHg 2013-09-03 Blood pressure diastolic 86 mmHg 2013-09-03 MEDICATIONS Unknown Medications RESULTS No Results PROCEDURES [...] and replaced VC 10/2018 Hospitalization History Cellulitis-[facility] Hospitalization History [facility]- Abd pain 03/07/2017 Hospitalization History [facility]- Abd pain 03/14/2017 Hospitalization History [facility]- No bowel movement, rash 04/13/2017 Hospitalization History [facility]- Abd pain r/ t kidney surgery on 04/10/17 04/17/2017 Hospitalization History [facility]- Abd pain r/ t kidney surgery on 04/10/17 04/18/2017 Hospitalization History [facility]- Lower abd pain 04/17 Hospitalization History [facility]- Cannot urinate 05/17 Hospitalization History [facility]- Pancreatitis Sx Hospitalization History [facility]- Stomach pain 2017 Hospitalization History [facility]- Left side pain 07/19 Hospitalization History [facility]- Incision site infec tion 08/30/2017 Hospitalization History [facility]- Post Op Serom a/Hematoma Left Abdomen. Discharged 09/04/17- Dr Daniel 09/02/2017 Hospitalization History [facility]- Right shoulder and back pain 10/22/2017 Hospitalization History [facility]- Shoulder/Back pain 11/11/2017 Hospitalization History [facility]- Right shoulder blad e pain 12/04/2017 Hospitalization History [facility]- C-Diff 12/13/2017 Hospitalization History C diff et MRSA 12/27/2017 Hospitalization History [facility] Bowel Obstruction 10/2018 Hospitalization History [facility]- Abdominal pain and nausea 01/08/2019
--- OUTSIDE RECORDS SUMMARY | 2019-10-17 05:08 | XMS REPORT ---
Author Author Janeth GIBBS [facility] Address [address] [place] [address] Care Team Providers Care Gyroscopic Instrument Tester Name Role Phone SAI CARMEN Unavailable PROBLEMS Type Condition ICD9-CM Code OHB41-HE Code Onset Dates Condition S tatus SNOMED Code Problem History of renal cell carcinoma Z85.528 Active 702169368 Problem Hepatic steatosis K76.0 Active 19 7872969 Problem Nodule of left lung R91.1 Active 704701876 Problem Right carpal tunnel syndrome G56.01 A ctive 383465208305457 Problem Mild obstructive sleep apnea G47.33 A ctive 86362077 Problem Chronic fatigue R53.82 Active 8422 9001 Problem Moderate episode of recurrent major depressive disorder F33.1 Active 898821271 Problem Chronic pancreatitis K86.1 Active 596280587 Problem Chronic tension-type headache, intractable G44.221 Active 929892052 Problem Polydipsia R63.1 Active 00428500 Problem Asthma J45.909 Active 881967212 Problem Chronic post-traumatic stress disorder (PTSD) F43. 12 Active 395931116 Problem Atelectasis J98.11 Active 95639987 Problem Trichotillomania F63.3 Active 171 22873 Problem Restless leg syndrome G25.81 Active 57338774 Problem Intestinal malabsorption, unspecified K90.9 Active 93838571 Problem Primary osteoarthritis of right knee M17.11 Active 328977437213621 Problem Menopausal symptoms N95.1 Active 91085427 Problem Generalized social phobia F40.11 Acti ve 59076798 Problem FH: polycystic ovary Z84.2 Active 435631416 Problem Vitamin D deficiency E55.9 Active 06091712 Problem Hirsuties L68.0 Active 417268183 Problem Hyperlipidemia, mixed E78.2 Active 396943359 Problem Social phobia, unspecified F40.10 Act yolanda 96580087 Problem Morbid obesity E66.01 Active 10382 6002 Problem Conflict between patient and family Z63.9 Active 53084288 Problem BMI 45.0-49.9, adult Z68.42 Active 315750577 ALLERGIES No Information ENCOUNTERS Encounter Location Date Diagnosis [place] [address] [address] Jul, [facility] [address] [address] Jul, [place] [address] [address] Jul, Chronic fatigue R53.82 ; Restless leg sy ndrome G25.81 ; Vitamin D deficiency E55.9 and Vitamin B deficiency E53.9 [place] [address] [address] Jul, Chronic post-traumatic stress disorder ( PTSD) F43.12 ; Generalized social phobia F40.11 ; Conflict between patient and family Z63.9 ; Trichotillomania F63.3 and BMI 45.0-49.9, adult Z68.42 [place] [address] [address] Jun, [place] [address] [address] Jun, [place] [address] [address] Jun, [place] [address] [address] May, [place] [address] [place] [address] May, [place] [address] [address] May, [place] [address] [address] May, [place] [address] [address] May, [facility] [address] [place] [id number] [place] [address] Apr, [facility] [id number] [place] [address] Apr, [facility] [address] [facility] [place] [address] Apr, [facility] [id number] [place] [address] Mar, Cervical radiculopathy M54.12 [facility] [id number] [place] [address] Mar, [facility] [address] [id number] [place] [address] Mar, [facility] [address] [id number] [place] [address] Mar, [facility] [id number] [place] [address] Mar, [facility] [id number] [place] [address] Mar, [facility] [address] [id number] [place] [address] Mar, [facility] [address] [id number] [place] [address] Mar, [facility] [address] [id number] [place] [address] Feb, Chronic cough R05 [facility] [address] [id number] [place] [address] 24 Feb, 2019 [facility] [address] [id number] [place] [address] Feb, [facility] [address] [id number] [place] [address] Feb, Cervical radiculopathy M54.12 [facility] [address] [address] [id number] [place] [address] Feb, Pain of left thumb M79.645 [place] [address] [address] Feb, [place] [address] [address] Feb, [place] [address] [address] Feb, [place] [address] [address] Feb, Cough present for greater than 3 weeks R 05 [place] [address] [address] Feb, Cough present for greater than 3 weeks R 05 ; Feels sick R68.89 ; History of renal cell carcinoma Z85.528 and Morbid obesity E66.01 [place] [address] [address] Jan, [facility] [address] [id number] Jan, Oral health maintenance status requiring routine preventive dental care K08.9 ; Dental examination Z01.20 and Caries K02.9 [place] [address] [address] Jan, Dysuria R30.0 [place] [address] [address] Jan, Dysuria R30.0 [place] [address] [address] Jan, Viral pharyngitis J02.9 and Morbid obesi ty E66.01 [place] [address] [address] Jan, [place] [address] [address] Jan, Left sided abdominal pain R10.9 ; Other acute postprocedural pain G89.18 ; History of renal cell carcinoma Z85.528 and Morbid obesity E66.01 [place] [address] [address] Dec, Dental examination Z01.20 [place] [address] [address] Dec, Elevated LFTs R94.[address] [address] Dec, Encounter for Medicare annual wellness e xam Z00.00 ; Chronic tension- type headache, intractable G44.221 ; Morbid (severe) obesity due to excess calories E66.01 ; Hyperlipidemia, mixed E78.2 ; Chronic pancreatitis K86.1 ; Asthma J45.909 ; Moderate episode of recurrent major depressive disorder F33.1 ; Chronic fatigue R53.82 and Social phobia, unspecified F40.[address] [address] Dec, [address] [address] Dec, [address] [address] Dec, [address] [address] Dec, Hyperlipidemia, mixed E78.2 ; History of renal cell carcinoma Z85.528 and Restless leg syndrome G25.[address] [address] Dec, Hyperlipidemia, mixed E78.2 ; Chronic pa ncreatitis K86.1 ; Restless leg syndrome G25.81 ; Nodule of left lung R91.1 ; History of renal cell carcinoma Z85.528 ; Leg swelling M79.89 ; Morbid obesity E66.01 and Observed sleep apnea G47.[address] [address] Nov, [address] [address] Nov, [facility] [address] [id number] [place] [address] Nov, [facility] [address] [facility] [id number] [address] [place] [address] Nov, Other acute postprocedural p ain G89.18 and Unspecified abdominal pain R10.9 [facility] [address] [place] [id number] [place] [address] October, [facility] [address] [place] [address] [id number] [place] [address] October, Social phobia, generalized F40.11 ; Conf lict between patient and family Z63.9 and Morbid obesity E66.01 [facility] [address] [place] [address] [id number] [place] [address] October, [facility] [address] [address] October, [facility] [address] [place] [id number] [place] [address] October, [facility] [address] [place] [id number] [place] [address] October, [place] [address] [place] [address] October, [facility] [address] [id number] [place] [address] October, [place] [address] [place] [address] October, [facility] [address] [facility] [place] [address] October, Morbid obesity E66.01 ; Routine gynecolo gical examination Z01.419 and Menopausal symptoms N95.1 [facility] [address] [facility] [place] [address] October, [address] [place] [address] Sep, [facility] [address] [id number] [place] [address] Sep, [facility] [address] [id number] [place] [address] Sep, [facility] [address] [id number] [place] [address] Sep, [facility] [address] [id number] [place] [address] Sep, Lower extremity edema R60.0 [facility] [address] [id number] [place] [address] Sep, [facility] [address] [facility] [id number] [address] [place] [address] Sep, Lower extremity edema R60.0 and Morbid obesity E66.01 [facility] [address] [id number] [place] [address] Sep, [facility] [address] [id number] [place] [address] Sep, [facility] [address] [id number] [place] [address] Aug, [facility] [address] [id number] [place] [address] Aug, Obesities, morbid E66.01 and Morbid obes ity E66.01 [facility] [address] [id number] [place] [address] Aug, [facility] [address] [place] [address] Jul, [facility] [address] [place] [address] [id number] [place] [address] Jul, [facility] [address] [id number] [place] [address] Jul, [facility] [address] [place] [id number] [place] [address] Jul, Numbness of right hand R20.0 [facility] [address] [address] Jul, [facility] [address] [address] Jul, Numbness of right hand R20.0 [facility] [address] [address] Jul, [facility] [address] [address] Jul, [facility] [address] [address] Jul, Right-sided thoracic back pain M54.6 [facility] [address] [address] Jul, [facility] [address] [address] Jul, [facility] [address] [address] Jul, [facility] [address] [address] Jul, [facility] [address] [address] Jun, [facility] [address] [address] Jun, Acute pain of right shoulder M25.511 ; N umbness of right hand R20.0 and Trapezius muscle spasm M62.838 [facility] [address] [address] Jun, [facility] [address] [address] Jun, [facility] [address] [address] Jun, Cough R05 ; BMI 50.0-59.9, adult Z68.43 and Morbid obesity E66.01 [place] [address] [address] Jun, [place] [address] [address] 14 Jun, 2018 [facility] [address] [place] [id number] [address] 13 Jun, 2018 BMI 45.0-49.9, adult Z68.42 and Acute non-recurrent maxillary sinusitis J01.00 [facility] [address] [place] [id number] [place] [address] 09 Jun, 2018 Acute sinusitis J01.90 ; Dys uria R30.0 and BMI 45.0- 49.9, adult Z68.42 [place] [address] [address] Jun, [place] [address] [address] Jun, [place] [address] [address] May, [place] [address] [address] May, [place] [address] [address] May, [place] [address] [address] May, [place] [address] [address] May, [place] [address] [address] Apr, Generalized social phobia F40.11 ; Trich otillomania F63.3 ; Chronic post-traumatic stress disorder (PTSD) F43.12 and BMI 45.0-49.9, adult Z68.42 [place] [address] [address] Apr, [place] [address] [address] Apr, Chronic tension-type headache, intractab le G44.221 [place] [address] [address] Apr, [facility] [address] [facility] [id number] [address] [place] [address] Mar, [facility] [address] [facility] [id number] [address] [place] [address] Mar, BMI 45.0-49.9, adult Z68.42 and Pimples R23.8 [place] [address] [address] Mar, [place] [address] [address] Mar, [place] [address] [address] Mar, Decreased urination R34 ; Chronic fatigu e R53.82 ; Peripheral edema R60.9 ; Diarrhea, unspecified type R19.7 ; Non-intractable vomiting with nausea, unspecified vomiting type R11.2 ; BMI 45.0-49.9, adult Z68.42 and Chronic post- traumatic stress disorder (PTSD) F43.12 [place] [address] [address] Mar, Intestinal malabsorption, unspecified K9 0.9 ; Diarrhea, unspecified R19.7 ; Urinary urgency R39.15 ; Rectal bleeding K62.5 and Decreased urine output R34 [place] [address] [address] Mar, Decreased urine output R34 [place] [address] [address] 11 Mar, 2018 Rectal bleeding K62.5 [place] [address] [address] Mar, Rectal bleeding K62.5 [place] [address] [address] Mar, Urinary urgency R39.15 [facility] [address] [address] Mar, Urinary urgency R39.15 [facility] [address] [address] Mar, Primary osteoarthritis of right knee M17 .11 and BMI 45.0-49.9, adult Z68.42 [place] [address] [address] Mar, [facility] [address] [address] Feb, Left upper arm pain M79.622 [place] [address] [address] Feb, [facility] [address] [address] Jan, Acute pain of right knee M25.561 ; Right upper quadrant abdominal pain R10.11 and BMI 45.0-49.9, adult Z68.42 [place] [address] [address] Jan, [facility] [address] [address] Jan, [facility] [address] [address] Dec, [facility] [address] [address] Dec, Intestinal malabsorption, unspecified K9 0.9 and Diarrhea, unspecified R19.7 [facility] [address] [address] Dec, [facility] [address] [address] Dec, Strep throat J02.0 ; Intestinal malabsor ption, unspecified K90.9 ; Diarrhea, unspecified R19.7 ; Postoperative seroma involving digestive system after non-digestive system procedure K91.873 ; Hyperlipidemia, mixed E78.2 and BMI 45.0-49.9, adult Z68.42 [facility] [address] [address] Dec, [facility] [address] [address] Dec, Nausea R11.0 [facility] [address] [address] Dec, [facility] [address] [facility] [id number] [address] [place] [address] Dec, Sore throat J02.9 ; Strep th roat J02.0 and BMI 45.0- 49.9, adult Z68.42 [facility] [address] [address] Dec, [facility] [address] [address] Dec, [facility] [address] [address] Dec, [facility] [address] [address] Dec, [facility] [address] [address] Dec, [facility] [address] [address] Dec, [facility] [address] [address] Dec, [facility] [address] [address] Dec, [facility] [address] [address] Dec, Clostridium difficile colitis A04.72 ; I ntractable vomiting with nausea, unspecified vomiting type R11.2 and BMI 45.0-49.9, adult Z68.42 [place] [address] [address] Dec, [facility] [address] [address] Nov, [place] [address] [address] Nov, [place] [address] [address] Nov, [place] [address] [address] Nov, [facility] [place] [address] [address] Nov, [place] [address] [address] Nov, Hyperlipidemia, mixed E78.2 [facility] [place] [address] [address] Nov, Acute suppurative otitis med ia of right ear without spontaneous rupture of tympanic membrane, recurrence not specified H66.001 and BMI 45.0-49.9, adult Z68.42 [place] [address] [address] Nov, Hyperlipidemia, mixed E78.2 [place] [address] [address] Nov, [place] [address] [address] Nov, [place] [address] [address] Nov, Nodule of left lung R91.1 [place] [address] [address] Nov, Medicare annual wellness visit, initial Z00.00 [...] adult Z68.42 and Encounter for immunization Z23 [address] [address] October, [address] [address] October, Nodule of left lung R91.[address] [address] October, Nodule of left lung R91.[address] [address] October, Recurrent major depressive disorder, in partial remission F33.41 ; Restless leg syndrome G25.81 ; Generalized social phobia F40.11 ; Chronic post- traumatic stress disorder (PTSD) F43.12 ; BMI 45.0-49.9, adult Z68.42 and Trichotillomania F63.[address] [address] October, [address] [address] Sep, Chronic fatigue R53.82 and BMI 45.0-49.9 , adult Z68.[address] [address] Aug, [address] [address] Jul, Restless leg syndrome G25.81 and B12 def iciency E53.[address] [id number] [place] [address] Jul, [place] [address] [address] Jul, [place] [address] [address] Jun, [place] [address] [address] Jun, Fatigue, unspecified type R53.83 ; Histo ry of renal cell carcinoma Z85.528 ; Chronic pancreatitis K86.1 ; Restless leg syndrome G25.81 ; Dark urine R82.99 and BMI 45.0-49.9, adult Z68.42 [place] [address] [address] Jun, [place] [address] [address] Jun, [place] [address] [address] Jun, [place] [address] [address] Jun, [place] [address] [address] May, Chronic post-traumatic stress disorder ( PTSD) F43.12 ; Moderate episode of recurrent major depressive disorder F33.1 ; Trichotillomania F63.3 and Generalized social phobia F40.11 [place] [address] [address] May, [place] [address] [address] May, Chronic post-traumatic stress disorder ( PTSD) F43.12 ; Moderate episode of recurrent major depressive disorder F33.1 ; Trichotillomania F63.3 and Generalized social phobia F40.11 [place] [address] [address] May, Hyperlipidemia, mixed E78.2 ; Morbid (se nehemisa) obesity due to excess calories E66.01 ; Chronic post-traumatic stress disorder (PTSD) F43.12 ; Moderate episode of recurrent major depressive disorder F33.1 ; Trichotillomania F63.3 and Generalized social phobia F40.11 [place] [address] [address] Apr, [place] [address] [address] Apr, Hyperlipidemia, mixed E78.2 ; Morbid (se nehemias) obesity due to excess calories E66.01 ; Chronic post-traumatic stress disorder (PTSD) F43.12 ; Moderate episode of recurrent major depressive disorder F33.1 ; Trichotillomania F63.3 and Generalized social phobia F40.11 [place] [address] [address] Apr, Trichotillomania F63.3 ; Generalized soc ial phobia F40.11 ; Chronic post-traumatic stress disorder (PTSD) F43.12 and Moderate episode of recurrent major depressive disorder F33.1 [place] [address] [address] Apr, [place] [address] [address] Apr, [place] [address] [address] Mar, Moderate episode of recurrent major depr essive disorder F33.1 ; Trichotillomania F63.3 ; Chronic post-traumatic stress disorder (PTSD) F43.12 ; Generalized social phobia F40.11 and Restless leg syndrome G25.81 [place] [address] [address] Mar, [place] [address] [address] Mar, [place] [address] [address] Feb, Left kidney mass N28.89 [facility] [address] [address] Jan, [facility] [address] [address] Dec, Polydipsia R63.1 ; Chronic pancreatitis K86.1 and Fatigue, unspecified type R53.83 [facility] [address] [address] Nov, [facility] [address] [address] Nov, [facility] [address] [address] Nov, Headache around the eyes R51 [place] [address] [address] Nov, [facility] [address] [address] October, STD exposure Z20.2 [place] [address] [address] October, STD exposure Z20.2 [place] [address] [address] October, Chronic post-traumatic stress disorder ( PTSD) F43.12 ; Generalized social phobia F40.11 ; Trichotillomania F63.3 and Restless leg syndrome G25.81 [facility] [id number] [place] [address] October, [facility] [address] [address] Sep, [facility] [address] [address] Aug, [facility] [address] [address] Aug, [facility] [address] [address] 08 Aug, 2016 Neck mass R22.1 [place] [address] [address] 03 Aug, 2016 Atelectasis J98.11 [place] [address] [address] 28 Jul, 2016 Hyperlipidemia, mixed E78.2 ; Atypical p neumonia J18.9 and Neck mass R22.1 [place] [address] [address] 15 Jul, 2016 Hemoptysis R04.2 [place] [address] [address] 08 Jul, 2016 Acute non-recurrent pansinusitis J01.40 ; Hemoptysis R04.2 ; Polydipsia R63.1 and Malaise R53.81 [facility] [place] [id number] [place] [address] May, Other viral agents as the ca use of diseases classified elsewhere B97.89 and Acute upper respiratory infection, unspecified J06.9 [facility] [place] [id number] [address] [place] [address] Mar, Nausea R11.0 [facility] [address] [address] Dec, Hives L50.9 [place] [address] [address] 14 Dec, 2015 [facility] [address] [place], [place] [id number] [address] [place] [address] 10 Dec, 2015 Cutaneous abscess of limb, u nspecified L02.419 ; Cellulitis of unspecified part of limb L03.119 ; Encounter for incision and drainage procedure Z01.89 and Encounter for recheck of abscess following i ncision and drainage Z09 [facility] [place] [id number] [place] [address] Dec, Abscess of leg, right L02.41 5 [place] [address] [address] Dec, Cellulitis of unspecified part of limb L 03.119 and Cutaneous abscess of limb, unspecified L02.419 [place] [address] [address] Dec, [place] [address] [address] Dec, [facility] [place] [address] [address] [place] [id number] [address] [place] [address] Aug, [place] [address] [address] Aug, [facility] [place] [id number] [place] [address] Jul, Pain in unspecified wrist M2 5.539 and Back pain, thoracic M54.6 [facility] [address] [place] [address] Jun, Strain of right wrist, initi al encounter S66.911A [place] [address] [address] Jun, Chronic pancreatitis, unspecified pancre atitis type K86.1 ; Hirsuties L68.0 ; Morbid (severe) obesity due to excess calories E66.01 ; Chronic pancreatitis K86.1 and Asthma J45.909 [place] [address] [address] May, [place] [address] [address] May, Hyperlipidemia, mixed E78.2 and Muscle s pasm of back M62.830 [place] [address] [address] Apr, [place] [address] [address] Apr, Torticollis M43.6 [facility] [facility] [address] [address] Apr, Right-sided thoracic back pain M54.6 [facility] [address] [address] Mar, Rash R21 [facility] [address] [address] Mar, [facility] [address] [address] Jan, [facility] [address] [address] Dec, [facility] [address] [address] Dec, Urinary frequency 788.41 and Nocturia mo re than twice per night 788.43 [facility] [address] [address] Nov, [facility] [address] [address] Nov, [facility] [address] [address] Nov, Abdominal pain 789.00 [place] [address] [address] October, TDAP DX V06.1 [facility] [address] [address] October, [facility] [address] [address] October, Disturbance of skin sensation 782.0 ; Wr ist pain, right 719.43 ; Hyperlipidemia 272.4 and Skin lesion of face 709.9 [facility] [address] [address] Sep, [facility] [id number] [place] [address] 13 Sep, 2014 [facility] [place] [facility] [address] [facility] [id number] [place] [address] 26 Aug, 2014 [facility] [place] [facility] [address] [facility] [id number] [place] [address] Aug, [facility] [place] [facility] [address] [id number] [place] [address] Aug, [facility] [place] [facility] [address] [id number] [place] [address] Aug, [facility] [place] [facility] [address] [facility] [id number] [place] [address] 16 Aug, 2014 [facility] [place] [facility] [address] [id number] [place] [address] 16 Aug, 2014 [facility] [place] [facility] [address] [id number] [place] [address] 14 Aug, 2014 [facility] [place] [facility] [address] [id number] [place] [address] 14 Aug, 2014 [facility] [place] [facility] [address] [id number] [place] [address] Aug, [facility] [place] [facility] [address] [id number] [place] [address] Aug, [facility] [place] [facility] [address] [id number] [place] [address] 04 Aug, 2014 [facility] [place] [facility] [address] [id number] [place] [address] 04 Aug, 2014 [facility] [place] [facility] [address] [id number] [place] [address] Aug, [facility] [place] [facility] [address] [id number] [place] [address] Aug, [facility] [place] [facility] [address] [id number] [place] [address] Jul, [facility] [place] [facility] [address] [id number] [place] [address] Jul, [facility] [place] [facility] [address] [id number] [place] [address] Jul, [facility] [place] [facility] [address] [id number] [place] [address] Jul, [facility] [place] [facility] [address] [id number] [place] [address] Jul, [facility] [place] [facility] [address] [id number] [place] [address] Jul, [facility] [place] [facility] [address] [id number] [place] [address] Jun, [facility] [place] [facility] [address] [id number] [place] [address] Jun, [facility] [place] [facility] [address] [id number] [place] [address] Jun, [facility] [place] [facility] [address] [id number] [place] [address] Jun, [facility] [place] [facility] [address] [id number] [place] [address] Jun, [facility] [place] [facility] [address] [id number] [place] [address] Jun, [facility] [place] [facility] [address] [id number] [place] [address] Jun, [facility] [place] [facility] [id number] [place] [address] Jun, [facility] [place] [facility] [address] [id number] [place] [address] May, [facility] [place] [facility] [address] [id number] [place] [address] May, [facility] [place] [facility] [address] [id number] [place] [address] May, [facility] [place] [facility] [address] [id number] [place] [address] May, [facility] [place] [facility] [address] [id number] [place] [address] 15 May, 2014 [facility] [place] [facility] [address] [id number] [place] [address] May, [facility] [place] [facility] [address] [id number] [place] [address] May, [facility] [place] [facility] [address] [id number] [place] [address] May, [facility] [place] [facility] [address] [id number] [place] [address] May, [facility] [place] [facility] [address] [id number] [place] [address] May, [facility] [place] [facility] [address] [id number] [place] [address] May, [facility] [place] [facility] [address] [id number] [place] [address] May, [facility] [place] [facility] [address] [id number] [place] [address] Apr, [facility] [place] [facility] [address] [id number] [place] [address] Apr, [facility] [place] [facility] [address] [id number] [place] [address] Apr, [facility] [place] [facility] [address] [id number] [place] [address] Apr, [facility] [place] [facility] [address] [id number] [place] [address] Apr, [facility] [place] [facility] [address] [id number] [place] [address] Apr, [facility] [place] [facility] [address] [id number] [place] [address] Apr, [facility] [place] [facility] [address] [id number] [place] [address] Apr, [facility] [place] [facility] [address] [id number] [place] [address] Apr, [facility] [place] [facility] [address] [id number] [place] [address] Apr, [facility] [place] [facility] [address] [id number] [place] [address] Apr, [facility] [place] [facility] [address] [id number] [place] [address] Apr, [facility] [place] [facility] [address] [id number] [place] [address] Mar, [facility] [place] [facility] [address] [id number] [place] [address] Mar, [facility] [place] [facility] [address] [id number] [place] [address] Mar, [facility] [place] [facility] [address] [id number] [place] [address] Mar, [facility] [place] [facility] [address] [id number] [place] [address] Feb, [facility] [place] [facility] [address] [id number] [place] [address] Feb, 2013 [facility] [place] [facility] [address] [id number] [place] [address] 05 Feb, 2014 [facility] [place] [facility] [address] [id number] [place] [address] Feb, 2013 [facility] [place] [facility] [address] [id number] [place] [address] Feb, 2013 [facility] [place] [facility] [address] [id number] [place] [address] 05 Feb, 2013 [facility] [place] [facility] [address] [id number] [place] [address] Jan, [facility] [place] [facility] [address] [id number] [place] [address] Jan, [facility] [place] [facility] [address] [id number] [place] [address] Jan, [facility] [place] [facility] [address] [id number] [place] [address] Jan, [facility] [place] [facility] [address] [id number] [place] [address] Jan, [facility] [place] [facility] [address] [id number] [place] [address] Jan, [facility] [place] [facility] [address] [facility] [id number] [place] [address] Jan, [facility] [place] [facility] [address] [id number] [place] [address] Jan, [facility] [place] [facility] [address] [facility] [id number] [place] [address] Jan, [facility] [place] [facility] [address] [id number] [place] [address] Jan, [facility] [place] [facility] [address] [facility] [id number] [place] [address] Jan, [facility] [place] [facility] [address] [id number] [place] [address] Jan, [facility] [place] [facility] [address] [facility] [id number] [place] [address] Jan, [facility] [place] [facility] [address] [id number] [place] [address] Jan, [facility] [place] [facility] [address] [id number] [place] [address] Dec, [facility] [place] [facility] [address] [id number] [place] [address] Dec, [facility] [place] [facility] [address] [facility] [id number] [place] [address] Dec, [facility] [place] [facility] [address] [id number] [place] [address] Dec, [facility] [place] [facility] [address] [facility] [id number] [place] [address] Nov, [facility] [place] [facility] [address] [id number] [place] [address] Nov, [facility] [place] [facility] [address] [id number] [place] [address] Nov, [facility] [place] [facility] [address] [facility] [id number] [place] [address] Nov, [facility] [place] [facility] [address] [facility] [id number] [place] [address] Nov, [facility] [place] [facility] [address] [id number] [place] [address] October, [facility] [place] [facility] [address] [id number] [place] [address] October, [facility] [place] [facility] [address] [id number] [place] [address] October, [facility] [place] [facility] [address] [id number] [place] [address] October, [facility] [place] [facility] [address] [id number] [place] [address] October, [facility] [place] [facility] [address] [id number] [place] [address] October, [facility] [place] [facility] [address] [id number] [place] [address] October, [facility] [place] [facility] [address] [id number] [place] [address] October, [facility] [place] [facility] [address] [id number] [place] [address] October, [facility] [place] [facility] [address] [id number] [place] [address] October, [facility] [place] [facility] [address] [id number] [place] [address] October, [facility] [place] [facility] [address] [id number] [place] [address] October, [facility] [place] [facility] [address] [id number] [place] [address] October, [facility] [place] [facility] [address] [id number] [place] [address] October, [facility] [place] [facility] [address] [id number] [place] [address] 17 Sep, 2013 [facility] [place] [facility] [address] [id number] [place] [address] 17 Sep, 2013 [facility] [place] [facility] [address] [id number] [place] [address] 14 Sep, 2013 [facility] [place] [facility] [address] [id number] [place] [address] 14 Sep, 2013 [facility] [place] [facility] [address] [id number] [place] [address] 10 Sep, 2013 [facility] [place] [facility] [address] [id number] [place] [address] Sep, [facility] [place] [facility] [address] [id number] [place] [address] Sep, [facility] [place] [facility] [address] [id number] [place] [address] Sep, [facility] [place] [facility] [address] [id number] [place] [address] Sep, [facility] [place] [facility] [address] [id number] [place] [address] Sep, [facility] [place] [facility] [address] [id number] [place] [address] Sep, [facility] [place] [facility] [address] [id number] [place] [address] Sep, [facility] [place] [facility] [address] [id number] [place] [address] Sep, [facility] [place] [facility] [address] [id number] [place] [address] Sep, [facility] [place] [facility] [address] [id number] [place] [address] Sep, [facility] [place] [facility] [address] [id number] [place] [address] Aug, [facility] [place] [facility] [address] [id number] [place] [address] Aug, [facility] [place] [facility] [address] [facility] [id number] [place] [address] Aug, [facility] [place] [facility] [address] [facility] [id number] [place] [address] Aug, [facility] [place] [facility] [address] [id number] [place] [address] Jul, [facility] [place] [facility] [address] [id number] [place] [address] Jul, [facility] [place] [facility] [address] [facility] [id number] [place] [address] Jul, [facility] [place] [facility] [address] [id number] [place] [address] Jul, [facility] [place] [facility] [address] [id number] [place] [address] Jun, [facility] [place] [facility] [address] [id number] [place] [address] Jun, [facility] [place] [facility] [address] [id number] [place] [address] Jun, [facility] [place] [facility] [address] [id number] [place] [address] Jun, [facility] [place] [facility] [address] [id number] [place] [address] Jun, [facility] [place] [facility] [address] [id number] [place] [address] Jun, [facility] [place] [facility] [address] [id number] [place] [address] Jun, [facility] [place] [facility] [address] [id number] [place] [address] Jun, [facility] [place] [facility] [address] [id number] [place] [address] May, [facility] [place] [facility] [address] [id number] [place] [address] May, [facility] [place] [facility] [address] [id number] [place] [address] 18 May, 2012 [facility] [place] [facility] [address] [facility] [id number] [place] [address] 18 May, 2013 [facility] [place] [facility] [address] [id number] [place] [address] 17 May, 2013 [facility] [place] [facility] [address] [facility] [id number] [place] [id number] 17 May, 2012 [facility] [place] [facility] [address] [id number] [place] [address] 17 May, 2013 [facility] [place] [facility] [address] [id number] [place] [address] 17 May, 2013 [facility] [place] [facility] [address] [id number] [place] [address] 16 May, 2013 [facility] [place] [facility] [address] [id number] [place] [address] 16 May, 2013 [facility] [place] [facility] [address] [id number] [place] [address] 14 May, 2013 [facility] [place] [facility] [address] [id number] [place] [address] 14 May, 2013 [facility] [place] [facility] [address] [id number] [place] [address] 13 May, 2013 [facility] [place] [facility] [address] [id number] [place] [address] 13 May, 2013 [facility] [place] [facility] [address] [id number] [place] [address] 12 May, 2013 [facility] [place] [facility] [address] [id number] [place] [address] 12 May, 2013 [facility] [place] [facility] [address] [id number] [place] [address] 11 May, 2013 [facility] [place] [facility] [address] [id number] [place] [address] 11 May, 2013 [facility] [place] [facility] [address] [id number] [place] [address] 26 Apr, 2013 [facility] [place] [facility] [address] [id number] [place] [address] Apr, [facility] [place] [facility] [address] [id number] [place] [address] Apr, [facility] [place] [facility] [address] [id number] [place] [address] Apr, [facility] [place] [facility] [address] [id number] [place] [address] Aug, [facility] [place] [facility] [address] [id number] [place] [address] Aug, [facility] [place] [facility] [address] [id number] [place] [address] Aug, [facility] [place] [facility] [address] [id number] [place] [address] Aug, [facility] [place] [facility] [address] [id number] [place] [address] Jul, [facility] [place] [facility] [address] [id number] [place] [address] Jun, [facility] [place] [facility] [address] [id number] [place] [address] Jun, [facility] [place] [facility] [address] [id number] [place] [address] Jun, [facility] [place] [facility] [address] [id number] [place] [address] Jun, [facility] [place] [facility] [address] [id number] [place] [address] May, [facility] [place] [facility] [address] [id number] [place] [address] May, [facility] [place] [facility] [address] [id number] [place] [address] May, [facility] [place] [facility] [address] [id number] [place] [address] May, [facility] [place] [facility] [address] [id number] [place] [address] May, [facility] [place] [facility] [address] [id number] [place] [address] May, [facility] [place] [facility] [address] [id number] [place] [address] May, [facility] [place] [facility] [address] [id number] [place] [address] Apr, [facility] [place] [facility] [address] [id number] [place] [address] Apr, [facility] [place] [facility] [address] [id number] [place] [address] Apr, [facility] [place] [facility] [address] [id number] [place] [address] Apr, [facility] [place] [facility] [address] [id number] [place] [address] Apr, [facility] [place] [facility] [address] [id number] [place] [address] Apr, [facility] [place] [facility] [address] [id number] [place] [address] Apr, [facility] [place] [facility] [address] [id number] [place] [address] Mar, [facility] [place] [facility] [address] [id number] [place] [address] Mar, [facility] [place] [facility] [address] [id number] [place] [address] Mar, [facility] [place] [facility] [address] [id number] [place] [address] Mar, [facility] [place] [facility] [address] [id number] [place] [address] Mar, [facility] [place] [facility] [address] [id number] [place] [address] Mar, [facility] [place] [facility] [address] [id number] [place] [address] Mar, [facility] [place] [facility] [address] [id number] [place] [address] Mar, [facility] [place] [facility] [address] [id number] [place] [address] Mar, [facility] [place] [facility] [address] [id number] [place] [address] Mar, [facility] [place] [facility] [address] [id number] [place] [address] Mar, [facility] [place] [facility] [address] [id number] [place] [address] Mar, [facility] [place] [facility] [address] [id number] [place] [address] Feb, [facility] [place] [facility] [address] [id number] [place] [address] Jan, [facility] [place] [facility] [address] [id number] [place] [address] Jan, [facility] [place] [facility] [address] [id number] [place] [address] Jan, [facility] [place] [facility] [address] [id number] [place] [address] Jan, [facility] [place] [facility] [address] [id number] [place] [address] Jan, [facility] [place] [facility] [address] [id number] [place] [address] Dec, [facility] [place] [facility] [address] [id number] [place] [address] Dec, [facility] [address] [id number] [place] [address] Nov, [facility] [address] [id number] [place] [address] Nov, [facility] [address] [id number] [place] [address] Nov, [facility] [address] [id number] [place] [address] October, [facility] [id number] [place] [address] October, [facility] [address] [id number] [place] [address] October, [facility] [address] [id number] [place] [address] October, [facility] [address] [id number] [place] [address] October, [facility] [address] [id number] [place] [address] October, [facility] [address] [id number] [place] [address] October, [facility] [address] [id number] [place] [address] Sep, [facility] [address] [id number] [place] [address] 26 Sep, 2011 [facility] [address] [id number] [place] [address] 26 Sep, 2011 [facility] [address] [id number] [place] [address] 25 Sep, 2011 [facility] [address] [id number] [place] [address] 24 Sep, 2011 [facility] [address] [id number] [place] [address] 19 Sep, 2011 [facility] [address] [id number] [place] [address] 17 Sep, 2011 [facility] [address] [id number] [place] [address] 16 Sep, 2011 [facility] [address] [id number] [place] [address] 16 Sep, 2011 [facility] [address] [id number] [place] [address] 14 Sep, 2011 [facility] [address] [id number] [place] [address] 13 Sep, 2011 [facility] [address] [id number] [place] [address] 10 Sep, 2011 [facility] [address] [id number] [place] [address] 09 Sep, 2011 [facility] [address] [id number] [place] [address] 27 Aug, 2011 [facility] [address] [id number] [place] [address] Aug, [facility] [address] [id number] [place] [address] 08 Aug, 2011 [facility] [address] [id number] [place] [address] 06 Aug, 2011 [facility] [address] [id number] [place] [address] 28 Jul, 2011 [facility] [address] [id number] [place] [address] 22 Jul, 2011 [facility] [address] [id number] [place] [address] 16 Jul, 2011 [facility] [address] [id number] [place] [address] 15 Jul, 2011 [facility] [address] [id number] [place] [address] 14 Jul, 2011 [facility] [address] [id number] [place] [address] 10 Jul, 2011 [facility] [address] [id number] [place] [address] Jun, [facility] [address] [id number] [place] [address] Jun, [facility] [address] [id number] [place] [address] Jun, [facility] [address] [id number] [place] [address] Jun, [facility] [address] [id number] [place] [address] Jun, [facility] [address] [id number] [place] [address] May, [facility] [address] [id number] [place] [address] May, [facility] [address] [id number] [place] [address] 14 May, 2011 [facility] [address] [id number] [place] [address] 14 May, 2011 [facility] [address] [id number] [place] [address] May, [facility] [address] [id number] [place] [address] May, [facility] [address] [id number] [place] [address] May, [facility] [address] [id number] [place] [address] 15 Apr, 2011 [facility] [address] [id number] [place] [address] 15 Apr, 2011 [facility] [address] [id number] [place] [address] Apr, [facility] [address] [id number] [place] [address] Apr, [facility] [address] [id number] [place] [address] Apr, [facility] [address] [id number] [place] [address] Apr, [facility] [id number] [place] [address] Mar, [facility] [address] [id number] [place] [address] Mar, [facility] [address] [id number] [place] [address] Mar, [facility] [address] [facility] [id number] [place] [address] Mar, [facility] [address] [id number] [place] [address] Jan, [facility] [address] [id number] [place] [address] Dec, [facility] [address] [id number] [place] [address] Dec, [facility] [address] [facility] [id number] [place] [address] October, [facility] [address] [id number] [place] [address] Sep, [facility] [address] [id number] [place] [address] 14 Sep, 2010 [facility] [address] [id number] [place] [address] 17 Jul, 2010 [facility] [address] [id number] [place] [address] 16 Jul, 2010 [facility] [address] [id number] [place] [address] May, [facility] [address] [id number] [place] [address] May, [facility] [address] [id number] [place] [address] 08 May, 2010 [facility] [address] [id number] [place] [address] May, [facility] [address] [id number] [place] [address] Apr, [facility] [address] [id number] [place] [address] Apr, [facility] [address] [id number] [place] [address] Apr, [facility] [address] [id number] [place] [address] 18 Apr, 2010 [facility] [address] [id number] [place] [address] Apr, [facility] [address] [id number] [place] [address] Mar, [facility] [address] [id number] [place] [address] 14 Mar, 2010 [facility] [address] [id number] [place] [address] 13 Mar, 2010 [facility] [address] [id number] [place] [address] Mar, [facility] [address] [id number] [place] [address] Jan, [facility] [address] [id number] [place] [address] 15 Dec, 2009 [facility] [address] [id number] [place] [address] Sep, [facility] [address] [id number] [place] [address] May, [facility] [address] [id number] [place] [address] May, [facility] [address] [id number] [place] [address] May, [facility] [address] [id number] [place] [address] Apr, [facility] [address] [id number] [place] [address] Apr, [facility] [address] [id number] [place] [address] 10 Apr, 2009 [facility] [address] [id number] [place] [address] Apr, [facility] [address] [id number] [place] [address] Apr, [facility] [address] [facility] [id number] [place] [address] Mar, [facility] [address] [id number] [place] [address] Mar, [facility] [address] [id number] [place] [address] Jul, IMMUNIZATIONS No Known Immunizations SOCIAL HISTORY [...] removed and replaced 10/2018 Hospitalization History [facility] [place]- Abd pain 03/07/2017 Hospitalization [facility] [place]- Abd pain 03/14/2017 Hospitalization [facility] [place]- No bowel movement, rash 04/13/2017 Hospitalization [facility] [place]- Abd pain r/ t kidney surgery on 04/10/17 04/17/2017 Hospitalization History [facility] [place]- Abd pain r/ t kidney surgery on 04/10/17 04/18/2017 Hospitalization History [facility] [place]- Lower abd pain 04/17 Hospitalization History [facility] [place]- Cannot urinate 05/17 Hospitalization History [facility]- Pancreatitis Sx Hospitalization History [facility]- Stomach pain 2017 Hospitalization History [facility] [place]- Left side pain 07/19 Hospitalization History [facility]- Incision site infec tion 08/30/2017 Hospitalization History [facility] [place]- Post Op Serom a/Hematoma Left Abdomen. Discharged 09/04/17- Dr Daniel 09/02/2017 Hospitalization History [facility]- Right shoulder and back pain 10/22/2017 Hospitalization History [facility]- Shoulder/Back pain 11/11/2017 Hospitalization History [facility]- Right shoulder blad e pain 12/04/2017 Hospitalization History [facility]- C-Diff 12/13/2017 Hospitalization History C diff et MRSA 12/27/2017 Hospitalization History [facility] Bowel Obstruction 10/2018 Hospitalization History [facility]- Abdominal pain and nausea 01/08/2019
--- OUTSIDE RECORDS SUMMARY | 2019-10-17 05:09 | XMS REPORT ---
Author Author Janeth WADE [facility] [address] Address [address] [place] [address] Care Team Providers Care Fresh Work Inspector Name Role Phone SHERI ANSON Unavailable PROBLEMS Type Condition ICD9-CM Code [id number] Code Onset Dates Condition S tatus SNOMED Code Problem History of renal cell carcinoma Z85.528 Active 316356461 Problem Hepatic steatosis K76.0 Active 19 1201349 Problem Nodule of left lung R91.1 Active 411381312 Problem Right carpal tunnel syndrome G56.01 A ctive [id number] Problem Mild obstructive sleep apnea G47.33 A ctive 56640317 Problem Chronic fatigue R53.82 Active 8422 9001 Problem Moderate episode of recurrent major depressive disorder F33.1 Active 665038632 Problem Chronic pancreatitis K86.1 Active 282635779 Problem Chronic tension-type headache, intractable G44.221 Active 615656200 Problem Polydipsia R63.1 Active 46718905 Problem Asthma J45.909 Active 768054865 Problem Chronic post-traumatic stress disorder (PTSD) F43. 12 Active 839424610 Problem Atelectasis J98.11 Active 72075153 Problem Trichotillomania F63.3 Active 171 27762 Problem Restless leg syndrome G25.81 Active 87825355 Problem Intestinal malabsorption, unspecified K90.9 Active 12178718 Problem Primary osteoarthritis of right knee M17.11 Active 292481191160451 Problem Menopausal symptoms N95.1 Active 10734094 Problem Generalized social phobia F40.11 Acti ve 38600142 Problem FH: polycystic ovary Z84.2 Active 405197653 Problem Vitamin D deficiency E55.9 Active 63805128 Problem Hirsuties L68.0 Active 850236331 Problem Hyperlipidemia, mixed E78.2 Active 374055207 Problem Social phobia, unspecified F40.10 Act yolanda 09469792 Problem Morbid obesity E66.01 Active 83592 6002 Problem Conflict between patient and family Z63.9 Active 21882078 Problem BMI 45.0-49.9, adult Z68.42 Active 093502187 ALLERGIES No Information ENCOUNTERS Encounter Location Date Diagnosis [facility] [place] [address] [address] Jul, [facility] [place] [address] [address] Jul, [facility] [place] [address] [address] Jul, Chronic fatigue R53.82 ; Restless leg sy ndrome G25.81 ; Vitamin D deficiency E55.9 and Vitamin B deficiency E53.9 [place] [address] [address] Jul, Chronic post-traumatic stress disorder ( PTSD) F43.12 ; Generalized social phobia F40.11 ; Conflict between patient and family Z63.9 ; Trichotillomania F63.3 and BMI 45.0-49.9, adult Z68.42 [place] [address] [address] Jun, [place] [address] [address] Jun, [facility] [place] [address] [address] Jun, [facility] [place] [address] [address] May, [place] [address] [place] [address] May, [facility] [place] [address] [address] May, [facility] [place] [address] [address] May, [facility] [place] [address] [address] May, [facility] [id number] [place] [address] Apr, [facility] [id number] [place] [address] Apr, [facility] [address] [id number] [place] [address] Apr, [facility] [id number] [place] [address] Mar, Cervical radiculopathy M54.12 [facility] [id number] [place] [address] Mar, [facility] [id number] [place] [address] Mar, [facility] [id number] [place] [address] Mar, [facility] [id number] [place] [address] Mar, [facility] [id number] [place] [address] Mar, [facility] [id number] [place] [address] Mar, [facility] [id number] [place] [address] Mar, [facility] [id number] [place] [address] Feb, Chronic cough R05 [facility] [address] [id number] [place] [address] Feb, [facility] [id number] [place] [address] Feb, [facility] [id number] [place] [address] Feb, Cervical radiculopathy M54.12 [facility] [id number] [place] [address] Feb, Pain of left thumb M79.645 [place] [address] [address] Feb, [place] [address] [address] Feb, [place] [address] [address] Feb, [place] [address] [address] Feb, Cough present for greater than 3 weeks R 05 [place] [address] [address] Feb, Cough present for greater than 3 weeks R 05 ; Feels sick R68.89 ; History of renal cell carcinoma Z85.528 and Morbid obesity E66.01 [place] [address] [address] Jan, [facility] [address] [id number] Jan, Oral health maintenance status requiring routine preventive dental care K08.9 ; Dental examination Z01.20 and Caries K02.9 [place] [address] [address] Jan, Dysuria R30.0 [place] [address] [address] Jan, Dysuria R30.0 [place] [address] [address] Jan, Viral pharyngitis J02.9 and Morbid obesi ty E66.01 [place] [address] [address] Jan, [place] [address] [address] Jan, Left sided abdominal pain R10.9 ; Other acute postprocedural pain G89.18 ; History of renal cell carcinoma Z85.528 and Morbid obesity E66.01 [place] [address] [address] Dec, Dental examination Z01.20 [place] [address] [address] Dec, Elevated LFTs R94.[address] [address] Dec, Encounter for Medicare annual wellness e xam Z00.00 ; Chronic tension- type headache, intractable G44.221 ; Morbid (severe) obesity due to excess calories E66.01 ; Hyperlipidemia, mixed E78.2 ; Chronic pancreatitis K86.1 ; Asthma J45.909 ; Moderate episode of recurrent major depressive disorder F33.1 ; Chronic fatigue R53.82 and Social phobia, unspecified F40.[address] [address] Dec, [address] [address] Dec, [address] [address] Dec, [address] [address] Dec, Hyperlipidemia, mixed E78.2 ; History of renal cell carcinoma Z85.528 and Restless leg syndrome G25.[address] [address] Dec, Hyperlipidemia, mixed E78.2 ; Chronic pa ncreatitis K86.1 ; Restless leg syndrome G25.81 ; Nodule of left lung R91.1 ; History of renal cell carcinoma Z85.528 ; Leg swelling M79.89 ; Morbid obesity E66.01 and Observed sleep apnea G47.30 [place] [address] [address] Nov, [address] [address] Nov, [facility] [place] [address] [id number] [place] [address] Nov, [facility] [address] [facility] [id number] [address] [place] [address] Nov, Other acute postprocedural p ain G89.18 and Unspecified abdominal pain R10.9 [facility] [place] [id number] [place] [address] October, [facility] [place] [id number] [place] [address] October, Social phobia, generalized F40.11 ; Conf lict between patient and family Z63.9 and Morbid obesity E66.01 [facility] [place] [id number] [place] [address] October, [facility] [place] [id number] [place] [address] October, [facility] [place] [id number] [place] [address] October, [facility] [place] [id number] [place] [address] October, [place] [place] [address] October, [facility] [place] [address] [id number] [place] [address] October, [place] [address] [place] [address] October, [facility] [place] [address] [id number] [place] [address] October, Morbid obesity E66.01 ; Routine gynecolo gical examination Z01.419 and Menopausal symptoms N95.1 [facility] [place] [address] [id number] [place] [address] October, [address] [place] [address] Sep, [facility] [place] [address] [id number] [place] [address] Sep, [facility] [place] [address] [id number] [place] [address] Sep, [facility] [place] [address] [id number] [place] [address] Sep, [facility] [place] [address] [id number] [place] [address] Sep, Lower extremity edema R60.0 [facility] [place] [address] [id number] [place] [address] Sep, [facility] [address] [facility] [id number] [address] [place] [address] Sep, Lower extremity edema R60.0 and Morbid obesity E66.01 [facility] [place] [address] [id number] [place] [address] Sep, [facility] [place] [address] [id number] [place] [address] Sep, [facility] [place] [id number] [place] [address] Aug, [facility] [place] [id number] [place] [address] Aug, Obesities, morbid E66.01 and Morbid obes ity E66.01 [facility] [place] [id number] [place] [address] Aug, [facility] [address] [place] [address] Jul, [facility] [place] [id number] [place] [address] Jul, [facility] [place] [id number] [place] [address] Jul, [facility] [place] [id number] [place] [address] Jul, Numbness of right hand R20.0 [facility] [place] [address] [address] Jul, [facility] [place] [address] [address] Jul, Numbness of right hand R20.0 [facility] [place] [address] [address] Jul, [facility] [place] [address] [address] Jul, [facility] [place] [address] [address] Jul, Right-sided thoracic back pain M54.6 [facility] [place] [address] [address] Jul, [facility] [place] [address] [address] Jul, [facility] [place] [address] [address] Jul, [facility] [place] [address] [address] Jul, [facility] [place] [address] [address] Jun, [facility] [place] [address] [address] Jun, Acute pain of right shoulder M25.511 ; N umbness of right hand R20.0 and Trapezius muscle spasm M62.838 [facility] [place] [address] [address] Jun, [facility] [place] [address] [address] Jun, [facility] [place] [address] [address] Jun, Cough R05 ; BMI 50.0-59.9, adult Z68.43 and Morbid obesity E66.01 [place] [address] [address] Jun, [place] [address] [address] 14 Jun, 2018 [facility] [id number] [address] 13 Jun, 2018 BMI 45.0-49.9, adult Z68.42 and Acute non-recurrent maxillary sinusitis J01.00 [facility] [id number] [place] [address] 09 Jun, 2018 Acute sinusitis J01.90 ; Dys uria R30.0 and BMI 45.0- 49.9, adult Z68.42 [place] [address] [address] Jun, [place] [address] [address] Jun, [place] [address] [address] May, [place] [address] [address] May, [place] [address] [address] May, [place] [address] [address] May, [place] [address] [address] May, [place] [address] [address] Apr, Generalized social phobia F40.11 ; Trich otillomania F63.3 ; Chronic post-traumatic stress disorder (PTSD) F43.12 and BMI 45.0-49.9, adult Z68.42 [place] [address] [address] Apr, [place] [address] [address] Apr, Chronic tension-type headache, intractab le G44.221 [facility] [place] [address] [address] Apr, [facility] [address] [facility] [id number] [address] [place] [address] Mar, [facility] [address] [facility] [id number] [address] [place] [address] Mar, BMI 45.0-49.9, adult Z68.42 and Pimples R23.8 [place] [address] [address] Mar, [place] [address] [address] Mar, [place] [address] [address] Mar, Decreased urination R34 ; Chronic fatigu e R53.82 ; Peripheral edema R60.9 ; Diarrhea, unspecified type R19.7 ; Non-intractable vomiting with nausea, unspecified vomiting type R11.2 ; BMI 45.0-49.9, adult Z68.42 and Chronic post- traumatic stress disorder (PTSD) F43.12 [place] [address] [address] Mar, Intestinal malabsorption, unspecified K9 0.9 ; Diarrhea, unspecified R19.7 ; Urinary urgency R39.15 ; Rectal bleeding K62.5 and Decreased urine output R34 [place] [address] [address] Mar, Decreased urine output R34 [place] [address] [address] Mar, Rectal bleeding K62.5 [place] [address] [address] Mar, Rectal bleeding K62.5 [facility] [place] [address] [address] Mar, Urinary urgency R39.15 [facility] [place] [address] [address] Mar, Urinary urgency R39.15 [facility] [place] [address] [address] Mar, Primary osteoarthritis of right knee M17 .11 and BMI 45.0-49.9, adult Z68.42 [facility] [place] [address] [address] Mar, [facility] [place] [address] [address] Feb, Left upper arm pain M79.622 [place] [address] [address] Feb, [facility] [place] [address] [address] Jan, Acute pain of right knee M25.561 ; Right upper quadrant abdominal pain R10.11 and BMI 45.0-49.9, adult Z68.42 [place] [address] [address] Jan, [facility] [place] [address] [address] Jan, [facility] [place] [address] [address] Dec, [facility] [place] [address] [address] Dec, Intestinal malabsorption, unspecified K9 0.9 and Diarrhea, unspecified R19.7 [facility] [place] [address] [address] Dec, [facility] [place] [address] [address] Dec, Strep throat J02.0 ; Intestinal malabsor ption, unspecified K90.9 ; Diarrhea, unspecified R19.7 ; Postoperative seroma involving digestive system after non-digestive system procedure K91.873 ; Hyperlipidemia, mixed E78.2 and BMI 45.0-49.9, adult Z68.42 [facility] [place] [id number] [place] [address] Dec, [facility] [place] [address] [address] Dec, Nausea R11.0 [facility] [place] [id number] [place] [address] Dec, [facility] [address] [facility] [id number] [address] [place] [address] Dec, Sore throat J02.9 ; Strep th roat J02.0 and BMI 45.0- 49.9, adult Z68.42 [facility] [place] [id number] [place] [address] Dec, [facility] [place] [address] [address] Dec, [facility] [place] [address] [address] Dec, [facility] [place] [id number] [place] [address] Dec, [facility] [place] [address] [address] Dec, [facility] [place] [id number] [place] [address] Dec, [facility] [place] [address] [address] Dec, [facility] [place] [id number] [place] [address] Dec, [facility] [place] [address] [address] Dec, Clostridium difficile colitis A04.72 ; I ntractable vomiting with nausea, unspecified vomiting type R11.2 and BMI 45.0-49.9, adult Z68.42 [place] [address] [address] Dec, [place] [address] [address] Nov, [place] [address] [address] Nov, [place] [address] [address] Nov, [place] [address] [address] Nov, [facility] [place] [address] [address] Nov, [place] [address] [address] Nov, Hyperlipidemia, mixed E78.2 [facility] [place] [address] [address] Nov, Acute suppurative otitis med ia of right ear without spontaneous rupture of tympanic membrane, recurrence not specified H66.001 and BMI 45.0-49.9, adult Z68.42 [place] [address] [address] Nov, Hyperlipidemia, mixed E78.2 [place] [address] [address] Nov, [place] [address] [address] Nov, [place] [address] [address] Nov, Nodule of left lung R91.1 [place] [address] [address] Nov, Medicare annual wellness visit, initial Z00.00 [...] adult Z68.42 and Encounter for immunization Z23 [address] [address] October, [address] [address] October, Nodule of left lung R91.[address] [address] October, Nodule of left lung R91.1 [place] [address] [address] October, Recurrent major depressive disorder, in partial remission F33.41 ; Restless leg syndrome G25.81 ; Generalized social phobia F40.11 ; Chronic post- traumatic stress disorder (PTSD) F43.12 ; BMI 45.0-49.9, adult Z68.42 and Trichotillomania F63.3 [place] [address] [address] October, [address] [address] Sep, Chronic fatigue R53.82 and BMI 45.0-49.9 , adult Z68.[address] [address] Aug, [place] [address] [address] Jul, Restless leg syndrome G25.81 and B12 def iciency E53.8 [place] [address] [address] Jul, [place] [address] [address] Jul, [place] [address] [address] Jun, [place] [address] [address] Jun, Fatigue, unspecified type R53.83 ; Histo ry of renal cell carcinoma Z85.528 ; Chronic pancreatitis K86.1 ; Restless leg syndrome G25.81 ; Dark urine R82.99 and BMI 45.0-49.9, adult Z68.42 [place] [address] [address] Jun, [place] [address] [address] Jun, [place] [address] [address] Jun, [place] [address] [address] Jun, [place] [address] [address] May, Chronic post-traumatic stress disorder ( PTSD) F43.12 ; Moderate episode of recurrent major depressive disorder F33.1 ; Trichotillomania F63.3 and Generalized social phobia F40.11 [place] [address] [address] May, [place] [address] [address] May, Chronic post-traumatic stress disorder ( PTSD) F43.12 ; Moderate episode of recurrent major depressive disorder F33.1 ; Trichotillomania F63.3 and Generalized social phobia F40.11 [place] [address] [address] May, Hyperlipidemia, mixed E78.2 ; Morbid (se nehemias) obesity due to excess calories E66.01 ; Chronic post-traumatic stress disorder (PTSD) F43.12 ; Moderate episode of recurrent major depressive disorder F33.1 ; Trichotillomania F63.3 and Generalized social phobia F40.11 [place] [address] [address] Apr, [place] [address] [address] Apr, Hyperlipidemia, mixed E78.2 ; Morbid (se nehemias) obesity due to excess calories E66.01 ; Chronic post-traumatic stress disorder (PTSD) F43.12 ; Moderate episode of recurrent major depressive disorder F33.1 ; Trichotillomania F63.3 and Generalized social phobia F40.11 [place] [address] [address] Apr, Trichotillomania F63.3 ; Generalized soc ial phobia F40.11 ; Chronic post-traumatic stress disorder (PTSD) F43.12 and Moderate episode of recurrent major depressive disorder F33.1 [place] [address] [address] Apr, [place] [address] [address] Apr, [place] [address] [address] Mar, Moderate episode of recurrent major depr essive disorder F33.1 ; Trichotillomania F63.3 ; Chronic post-traumatic stress disorder (PTSD) F43.12 ; Generalized social phobia F40.11 and Restless leg syndrome G25.81 [place] [address] [address] Mar, [place] [address] [address] Mar, [place] [address] [address] Feb, Left kidney mass N28.89 [facility] [place] [address] [address] Jan, [facility] [place] [address] [address] Dec, Polydipsia R63.1 ; Chronic pancreatitis K86.1 and Fatigue, unspecified type R53.83 [place] [address] [address] Nov, [facility] [place] [address] [address] Nov, [place] [address] [address] Nov, Headache around the eyes R51 [address] [address] Nov, [facility] [place] [address] [address] October, STD exposure Z20.2 [place] [address] [address] October, STD exposure Z20.2 [place] [address] [address] October, Chronic post-traumatic stress disorder ( PTSD) F43.12 ; Generalized social phobia F40.11 ; Trichotillomania F63.3 and Restless leg syndrome G25.81 [facility] [place] [address] [address] October, [facility] [place] [address] [address] Sep, [facility] [place] [address] [address] Aug, [facility] [place] [address] [address] Aug, [facility] [place] [address] [address] 08 Aug, 2016 Neck mass R22.1 [place] [address] [address] 03 Aug, 2016 Atelectasis J98.11 [place] [address] [address] 28 Jul, 2016 Hyperlipidemia, mixed E78.2 ; Atypical p neumonia J18.9 and Neck mass R22.1 [place] [address] [address] 15 Jul, 2016 Hemoptysis R04.2 [place] [address] [address] 08 Jul, 2016 Acute non-recurrent pansinusitis J01.40 ; Hemoptysis R04.2 ; Polydipsia R63.1 and Malaise R53.81 [facility] [address] [address] May, Other viral agents as the ca use of diseases classified elsewhere B97.89 and Acute upper respiratory infection, unspecified J06.9 [facility] [address] [address] Mar, Nausea R11.0 [facility] [address] [address] Dec, Hives L50.9 [place] [address] [address] 14 Dec, 2015 [facility] [address] [address] 10 Dec, 2015 Cutaneous abscess of limb, u nspecified L02.419 ; Cellulitis of unspecified part of limb L03.119 ; Encounter for incision and drainage procedure Z01.89 and Encounter for recheck of abscess following i ncision and drainage Z09 [facility] [address] [address] Dec, Abscess of leg, right L02.41 5 [place] [address] [address] 08 Dec, 2015 Cellulitis of unspecified part of limb L 03.119 and Cutaneous abscess of limb, unspecified L02.419 [place] [address] [address] Dec, [place] [address] [address] Dec, [facility] [place] [address] [place] [address] Aug, [place] [address] [address] Aug, [facility] [address] [place] [address] Jul, Pain in unspecified wrist M2 5.539 and Back pain, thoracic M54.6 [facility] [place] [id number] [place] [address] Jun, Strain of right wrist, initi al encounter S66.911A [place] [address] [address] Jun, Chronic pancreatitis, unspecified pancre atitis type K86.1 ; Hirsuties L68.0 ; Morbid (severe) obesity due to excess calories E66.01 ; Chronic pancreatitis K86.1 and Asthma J45.909 [place] [address] [address] May, [address] [address] May, Hyperlipidemia, mixed E78.2 and Muscle s pasm of back M62.830 [place] [address] [address] Apr, [place] [address] [address] Apr, Torticollis M43.6 [facility] [place] [address] [address] Apr, Right-sided thoracic back pain M54.6 [facility] [place] [address] [address] Mar, Rash R21 [facility] [place] [address] [address] Mar, [facility] [place] [address] [address] Jan, [facility] [place] [address] [address] Dec, [facility] [place] [address] [address] Dec, Urinary frequency 788.41 and Nocturia mo re than twice per night 788.43 [facility] [place] [address] [address] Nov, [facility] [place] [address] [address] Nov, [facility] [place] [address] [address] Nov, Abdominal pain 789.00 [place] [address] [address] October, TDAP DX V06.1 [facility] [place] [address] [address] October, [facility] [place] [address] [address] October, Disturbance of skin sensation 782.0 ; Wr ist pain, right 719.43 ; Hyperlipidemia 272.4 and Skin lesion of face 709.9 [facility] [place] [address] [address] Sep, [facility] [place] [address] [id number] [place] [address] 13 Sep, 2014 [facility] [place] [facility] [address] [facility] [id number] [place] [address] 26 Aug, 2014 [facility] [place] [facility] [address] [facility] [id number] [place] [address] 26 Aug, 2014 [facility] [place] [facility] [address] [id number] [place] [address] 23 Aug, 2014 [facility] [place] [facility] [address] [facility] [id number] [place] [address] 23 Aug, 2014 [facility] [place] [facility] [address] [facility] [id number] [place] [address] 16 Aug, 2014 [facility] [place] [facility] [address] [id number] [place] [address] 16 Aug, 2014 [facility] [place] [facility] [address] [id number] [place] [address] 14 Aug, 2014 [facility] [place] [facility] [address] [id number] [place] [address] 14 Aug, 2014 [facility] [place] [facility] [address] [facility] [id number] [place] [address] Aug, [facility] [place] [facility] [address] [id number] [place] [address] Aug, [facility] [place] [facility] [address] [id number] [place] [address] 04 Aug, 2014 [facility] [place] [facility] [address] [id number] [place] [address] 04 Aug, 2014 [facility] [place] [facility] [address] [facility] [id number] [place] [address] Aug, [facility] [place] [facility] [address] [id number] [place] [address] Aug, [facility] [place] [facility] [address] [id number] [place] [address] Jul, [facility] [place] [facility] [address] [id number] [place] [address] Jul, [facility] [place] [facility] [address] [id number] [place] [address] Jul, [facility] [place] [facility] [address] [id number] [place] [address] Jul, [facility] [place] [facility] [address] [id number] [place] [address] Jul, [facility] [place] [facility] [address] [id number] [place] [address] Jul, [facility] [place] [facility] [address] [id number] [place] [address] Jun, [facility] [place] [facility] [address] [id number] [place] [address] Jun, [facility] [place] [facility] [address] [id number] [place] [address] Jun, [facility] [place] [facility] [address] [id number] [place] [address] Jun, [facility] [place] [facility] [address] [id number] [place] [address] Jun, [facility] [place] [facility] [address] [id number] [place] [address] Jun, [facility] [place] [facility] [address] [id number] [place] [address] Jun, [facility] [place] [facility] [address] [id number] [place] [address] Jun, [facility] [place] [facility] [address] [id number] [place] [address] May, [facility] [place] [facility] [address] [id number] [place] [address] May, [facility] [place] [facility] [address] [id number] [place] [address] May, [facility] [place] [facility] [address] [id number] [place] [address] May, [facility] [place] [facility] [address] [id number] [place] [address] 15 May, 2014 [facility] [place] [facility] [address] [id number] [place] [address] May, [facility] [place] [facility] [address] [id number] [place] [address] May, [facility] [place] [facility] [address] [id number] [place] [address] May, [facility] [place] [facility] [address] [id number] [place] [address] May, [facility] [place] [facility] [address] [id number] [place] [address] May, [facility] [place] [facility] [address] [id number] [place] [address] May, [facility] [place] [facility] [address] [id number] [place] [address] May, [facility] [place] [facility] [address] [id number] [place] [address] Apr, [facility] [place] [facility] [address] [id number] [place] [address] Apr, [facility] [place] [facility] [address] [id number] [place] [address] Apr, [facility] [place] [facility] [address] [id number] [place] [address] Apr, [facility] [place] [facility] [address] [id number] [place] [address] Apr, [facility] [place] [facility] [address] [id number] [place] [address] Apr, [facility] [place] [facility] [address] [place] [id number] [place] [address] Apr, [facility] [place] [facility] [address] [id number] [place] [address] Apr, [facility] [place] [facility] [address] [id number] [place] [address] Apr, [facility] [place] [facility] [address] [id number] [place] [address] Apr, [facility] [place] [facility] [address] [id number] [place] [address] Apr, [facility] [place] [facility] [address] [id number] [place] [address] Apr, [facility] [place] [facility] [address] [id number] [place] [address] Mar, [facility] [place] [facility] [address] [id number] [place] [address] Mar, [facility] [place] [facility] [address] [id number] [place] [address] Mar, [facility] [place] [facility] [address] [id number] [place] [address] Mar, [facility] [place] [facility] [address] [id number] [place] [address] 10 Feb, 2014 [facility] [place] [facility] [address] [id number] [place] [address] Feb, 2013 [facility] [place] [facility] [address] [id number] [place] [address] 05 Feb, 2013 [facility] [place] [facility] [address] [id number] [place] [address] 05 Feb, 2013 [facility] [place] [facility] [address] [id number] [place] [address] 05 Feb, 2013 [facility] [place] [facility] [address] [id number] [place] [address] 05 Feb, 2013 [facility] [place] [facility] [address] [id number] [place] [address] Jan, [facility] [place] [facility] [address] [id number] [place] [address] Jan, [facility] [place] [facility] [address] [id number] [place] [address] Jan, [facility] [place] [facility] [address] [id number] [place] [address] Jan, [facility] [place] [facility] [address] [id number] [place] [address] Jan, [facility] [place] [facility] [address] [facility] [id number] [place] [address] Jan, [facility] [place] [facility] [address] [facility] [id number] [place] [address] Jan, [facility] [place] [facility] [address] [facility] [id number] [place] [address] Jan, [facility] [place] [facility] [address] [facility] [id number] [place] [address] Jan, [facility] [place] [facility] [address] [facility] [id number] [place] [address] Jan, [facility] [place] [facility] [address] [id number] [place] [address] Jan, [facility] [place] [facility] [address] [id number] [place] [address] Jan, [facility] [place] [facility] [address] [facility] [id number] [place] [address] Jan, [facility] [place] [facility] [address] [id number] [place] [address] Jan, [facility] [place] [facility] [address] [facility] [id number] [place] [address] Dec, [facility] [place] [facility] [address] [id number] [place] [address] Dec, [facility] [place] [facility] [address] [facility] [id number] [place] [address] Dec, [facility] [place] [facility] [address] [facility] [id number] [place] [address] Dec, [facility] [place] [facility] [address] [facility] [id number] [place] [address] Nov, [facility] [place] [facility] [address] [id number] [place] [address] Nov, [facility] [place] [facility] [address] [facility] [id number] [place] [address] Nov, [facility] [place] [facility] [address] [id number] [place] [address] Nov, [facility] [place] [facility] [address] [id number] [place] [address] Nov, [facility] [place] [facility] [address] [id number] [place] [address] October, [facility] [place] [facility] [address] [id number] [place] [address] October, [facility] [place] [facility] [address] [id number] [place] [address] October, [facility] [place] [facility] [address] [id number] [place] [address] October, [facility] [place] [facility] [address] [id number] [place] [address] October, [facility] [place] [facility] [address] [id number] [place] [address] October, [facility] [place] [facility] [address] [id number] [place] [address] October, [facility] [place] [facility] [address] [id number] [place] [address] October, [facility] [place] [facility] [address] [id number] [place] [address] October, [facility] [place] [facility] [address] [id number] [place] [address] October, [facility] [place] [facility] [address] [id number] [place] [address] October, [facility] [place] [facility] [address] [id number] [place] [address] October, [facility] [place] [facility] [address] [id number] [place] [address] October, [facility] [place] [facility] [address] [id number] [place] [address] October, [facility] [place] [facility] [address] [id number] [place] [address] Sep, [facility] [place] [facility] [address] [id number] [place] [address] Sep, [facility] [place] [facility] [address] [id number] [place] [address] Sep, [facility] [place] [facility] [address] [id number] [place] [address] 14 Sep, 2013 [facility] [place] [facility] [address] [id number] [place] [address] Sep, [facility] [place] [facility] [address] [id number] [place] [address] Sep, [facility] [place] [facility] [address] [id number] [place] [address] Sep, [facility] [place] [facility] [address] [id number] [place] [address] Sep, [facility] [place] [facility] [address] [id number] [place] [address] Sep, [facility] [place] [facility] [address] [id number] [place] [address] Sep, [facility] [place] [facility] [address] [id number] [place] [address] Sep, [facility] [place] [facility] [address] [id number] [place] [address] Sep, [facility] [place] [facility] [address] [id number] [place] [address] Sep, [facility] [place] [facility] [address] [id number] [place] [address] Sep, [facility] [place] [facility] [address] [id number] [place] [address] Sep, [facility] [place] [facility] [address] [id number] [place] [address] Aug, [facility] [place] [facility] [address] [id number] [place] [address] Aug, [facility] [place] [address] [id number] [place] [address] Aug, [facility] [address] [id number] [place] [address] Aug, [facility] [address] [id number] [place] [address] Jul, [facility] [address] [id number] [place] [address] Jul, [facility] [address] [facility] [id number] [place] [address] Jul, [facility] [address] [id number] [place] [address] Jul, [facility] [address] [id number] [place] [address] Jun, [facility] [address] [id number] [place] [address] Jun, [facility] [address] [id number] [place] [address] Jun, [facility] [address] [id number] [place] [address] Jun, [facility] [address] [id number] [place] [address] Jun, [facility] [address] [id number] [place] [address] Jun, [facility] [address] [id number] [place] [address] Jun, [facility] [address] [id number] [place] [address] Jun, [facility] [address] [id number] [place] [address] May, [facility] [address] [id number] [place] [address] May, [facility] [address] [id number] [place] [address] 18 May, 2012 [facility] [address] [id number] [place] [address] 18 May, 2012 [facility] [address] [id number] [place] [address] 17 May, 2012 [facility] [address] [facility] [id number] [place] [id number] 17 May, 2013 [facility] [address] [id number] [place] [address] 17 May, 2013 [facility] [address] [id number] [place] [address] 17 May, 2013 [facility] [address] [id number] [place] [address] 16 May, 2013 [facility] [address] [id number] [place] [address] 16 May, 2013 [facility] [address] [id number] [place] [address] 14 May, 2013 [facility] [address] [id number] [place] [address] 14 May, 2013 [facility] [address] [id number] [place] [address] 13 May, 2013 [facility] [address] [id number] [place] [address] 13 May, 2013 [facility] [address] [id number] [place] [address] 12 May, 2013 [facility] [address] [id number] [place] [address] 12 May, 2013 [facility] [address] [id number] [place] [address] 11 May, 2013 [facility] [address] [id number] [place] [address] 11 May, 2013 [facility] [address] [id number] [place] [address] Apr, [facility] [address] [id number] [place] [address] Apr, [facility] [address] [id number] [place] [address] Apr, [facility] [address] [id number] [place] [address] Apr, [facility] [address] [id number] [place] [address] Aug, [facility] [address] [id number] [place] [address] Aug, [facility] [address] [id number] [place] [address] Aug, [facility] [address] [id number] [place] [address] Aug, [facility] [address] [id number] [place] [address] Jul, [facility] [address] [id number] [place] [address] Jun, [facility] [address] [id number] [place] [address] Jun, [facility] [address] [id number] [place] [address] Jun, [facility] [facility] [address] [id number] [place] [address] Jun, [facility] [address] [id number] [place] [address] May, [facility] [address] [id number] [place] [address] May, [facility] [address] [id number] [place] [address] May, [facility] [address] [id number] [place] [address] May, [facility] [address] [id number] [place] [address] May, [facility] [address] [id number] [place] [address] May, [facility] [address] [id number] [place] [address] May, [facility] [address] [id number] [place] [address] Apr, [facility] [address] [id number] [place] [address] Apr, [facility] [address] [id number] [place] [address] Apr, [facility] [address] [id number] [place] [address] Apr, [facility] [address] [id number] [place] [address] Apr, [facility] [address] [id number] [place] [address] Apr, [facility] [address] [id number] [place] [address] Apr, [facility] [address] [id number] [place] [address] Mar, [facility] [address] [id number] [place] [address] Mar, [facility] [address] [id number] [place] [address] Mar, [facility] [address] [id number] [place] [address] Mar, [facility] [address] [id number] [place] [address] Mar, [facility] [address] [id number] [place] [address] Mar, [facility] [address] [id number] [place] [address] Mar, [facility] [address] [id number] [place] [address] Mar, [facility] [address] [facility] [id number] [place] [address] Mar, [facility] [address] [id number] [place] [address] Mar, [facility] [address] [id number] [place] [address] Mar, [facility] [address] [id number] [place] [address] Mar, [facility] [address] [id number] [place] [address] Feb, [facility] [address] [id number] [place] [address] Jan, [facility] [address] [id number] [place] [address] Jan, [facility] [address] [id number] [place] [address] Jan, [facility] [address] [id number] [place] [address] Jan, [facility] [address] [id number] [place] [address] Jan, [facility] [address] [id number] [place] [address] Dec, [facility] [address] [id number] [place] [address] Dec, [facility] [address] [id number] [place] [address] Nov, [facility] [address] [id number] [place] [address] Nov, [facility] [address] [id number] [place] [address] Nov, [facility] [address] [id number] [place] [address] October, [facility] [address] [id number] [place] [address] October, [facility] [address] [id number] [place] [address] October, [facility] [address] [id number] [place] [address] October, [facility] [address] [id number] [place] [address] October, [facility] [address] [id number] [place] [address] October, [facility] [address] [id number] [place] [address] October, [facility] [address] [id number] [place] [address] Sep, [facility] [address] [id number] [place] [address] 26 Sep, 2011 [facility] [address] [id number] [place] [address] 26 Sep, 2011 [facility] [address] [id number] [place] [address] 25 Sep, 2011 [facility] [address] [id number] [place] [address] 24 Sep, 2011 [facility] [address] [id number] [place] [address] 19 Sep, 2011 [facility] [address] [id number] [place] [address] 17 Sep, 2011 [facility] [address] [id number] [place] [address] 16 Sep, 2011 [facility] [address] [id number] [place] [address] 16 Sep, 2011 [facility] [address] [id number] [place] [address] 14 Sep, 2011 [facility] [address] [id number] [place] [address] 13 Sep, 2011 [facility] [address] [id number] [place] [address] 10 Sep, 2011 [facility] [address] [id number] [place] [address] 09 Sep, 2011 [facility] [address] [id number] [place] [address] 27 Aug, 2011 [facility] [address] [id number] [place] [address] Aug, [facility] [address] [id number] [place] [address] 08 Aug, 2011 [facility] [address] [id number] [place] [address] 06 Aug, 2011 [facility] [address] [id number] [place] [address] 28 Jul, 2011 [facility] [address] [id number] [place] [address] 22 Jul, 2011 [facility] [address] [id number] [place] [address] 16 Jul, 2011 [facility] [address] [id number] [place] [address] 15 Jul, 2011 [facility] [address] [id number] [place] [address] 14 Jul, 2011 [facility] [address] [id number] [place] [address] 10 Jul, 2011 [facility] [address] [id number] [place] [address] Jun, [facility] [address] [id number] [place] [address] Jun, [facility] [address] [id number] [place] [address] Jun, [facility] [address] [id number] [place] [address] Jun, [facility] [address] [id number] [place] [address] Jun, [facility] [address] [id number] [place] [address] May, [facility] [address] [id number] [place] [address] May, [facility] [id number] [place] [address] May, [facility] [address] [id number] [place] [address] 14 May, 2011 [facility] [address] [id number] [place] [address] May, [facility] [address] [id number] [place] [address] May, [facility] [id number] [place] [address] May, [facility] [address] [id number] [place] [address] 15 Apr, 2011 [facility] [address] [id number] [place] [address] 15 Apr, 2011 [facility] [address] [id number] [place] [address] Apr, [facility] [address] [id number] [place] [address] Apr, [facility] [address] [id number] [place] [address] Apr, [facility] [address] [id number] [place] [address] Apr, [facility] [id number] [place] [address] 28 Mar, 2011 [facility] [address] [id number] [place] [address] Mar, [facility] [address] [id number] [place] [address] Mar, [facility] [address] [facility] [id number] [place] [address] Mar, [facility] [address] [facility] [id number] [place] [address] Jan, [facility] [address] [id number] [place] [address] Dec, [facility] [address] [id number] [place] [address] Dec, [facility] [address] [facility] [id number] [place] [address] October, [facility] [address] [id number] [place] [address] Sep, [facility] [address] [id number] [place] [address] 14 Sep, 2010 [facility] [address] [id number] [place] [address] 17 Jul, 2010 [facility] [address] [id number] [place] [address] 16 Jul, 2010 [facility] [address] [id number] [place] [address] May, [facility] [address] [id number] [place] [address] May, [facility] [address] [id number] [place] [address] 08 May, 2010 [facility] [address] [id number] [place] [address] May, [facility] [address] [id number] [place] [address] Apr, [facility] [address] [id number] [place] [address] Apr, [facility] [address] [id number] [place] [address] Apr, [facility] [address] [id number] [place] [address] 18 Apr, 2010 [facility] [address] [id number] [place] [address] Apr, [facility] [address] [id number] [place] [address] 21 Mar, 2010 [facility] [address] [id number] [place] [address] 14 Mar, 2010 [facility] [address] [id number] [place] [address] 13 Mar, 2010 [facility] [address] [id number] [place] [address] Mar, [facility] [address] [id number] [place] [address] Jan, [facility] [address] [id number] [place] [address] 15 Dec, 2009 [facility] [address] [id number] [place] [address] 10 Sep, 2009 [facility] [address] [id number] [place] [address] 08 May, 2009 [facility] [address] [id number] [place] [address] May, [facility] [address] [id number] [place] [address] May, [facility] [address] [id number] [place] [address] Apr, [facility] [address] [id number] [place] [address] 17 Apr, 2009 [facility] [id number] [place] [address] 10 Apr, 2009 [facility] [address] [id number] [place] [address] 10 Apr, 2009 [facility] [address] [id number] [place] [address] Apr, [facility] [place] [address] [facility] [id number] [place] [address] Mar, [facility] [place] [address] [id number] [place] [address] Mar, [facility] [place] [address] [facility] [id number] [place] [address] Jul, IMMUNIZATIONS No Known Immunizations SOCIAL HISTORY [...] removed and replaced 10/2018 Hospitalization History Cellulitis-[facility] [place]- Abd pain 03/07/2017 [facility] [place]- Abd pain 03/14/2017 [facility] [place]- No bowel movement, rash 04/13/2017 [facility] [place]- Abd pain r/ t kidney surgery on 04/10/17 04/17/2017 Hospitalization History [facility]- Abd pain r/ t kidney surgery on 04/10/17 04/18/2017 Hospitalization History [facility] [place]- Lower abd pain 04/17 Hospitalization History [facility] [place]- Cannot urinate 05/17 Hospitalization History [facility]- Pancreatitis Sx Hospitalization History [facility]- Stomach pain 2017 Hospitalization History [facility]- Left side pain 07/19 Hospitalization History [facility]- Incision site infec tion 08/30/2017 Hospitalization History [facility] [place]- Post Op Serom a/Hematoma Left Abdomen. Discharged 09/04/17- Dr Daniel 09/02/2017 Hospitalization History [facility]- Right shoulder and back pain 10/22/2017 Hospitalization History [facility]- Shoulder/Back pain 11/11/2017 Hospitalization History [facility]- Right shoulder blad e pain 12/04/2017 Hospitalization History [facility]- C-Diff 12/13/2017 Hospitalization History C diff et MRSA 12/27/2017 Hospitalization History [facility] Bowel Obstruction 10/2018 Hospitalization History [facility]- Abdominal pain and nausea 01/08/2019
--- OUTSIDE RECORDS SUMMARY | 2019-10-17 05:09 | XMS REPORT ---
Author Author Janeth LOBATO Organization [facility] Address [address] [place] [address] Care Team Providers Care Human Resources Admin Name Role Phone BRENNA LOBATO Unavailable PROBLEMS Type Condition ICD9-CM Code QLX50-UV Code Onset Dates Condition S tatus SNOMED Code Problem History of renal cell carcinoma Z85.528 Active 208863178 Problem Hepatic steatosis K76.0 Active 19 2197098 Problem Nodule of left lung R91.1 Active 822831488 Problem Right carpal tunnel syndrome G56.01 A ctive 491187051346425 Problem Mild obstructive sleep apnea G47.33 A ctive 01851889 Problem Chronic fatigue R53.82 Active 8422 9001 Problem Moderate episode of recurrent major depressive disorder F33.1 Active 566285637 Problem Chronic pancreatitis K86.1 Active 702029441 Problem Chronic tension-type headache, intractable G44.221 Active 535265758 Problem Polydipsia R63.1 Active 03312792 Problem Asthma J45.909 Active 973637820 Problem Chronic post-traumatic stress disorder (PTSD) F43. 12 Active 159610494 Problem Atelectasis J98.11 Active 27843018 Problem Trichotillomania F63.3 Active 171 83864 Problem Restless leg syndrome G25.81 Active 90466996 Problem Intestinal malabsorption, unspecified K90.9 Active 23306075 Problem Primary osteoarthritis of right knee M17.11 Active 813880545156907 Problem Menopausal symptoms N95.1 Active 18606152 Problem Generalized social phobia F40.11 Acti ve 87492237 Problem FH: polycystic ovary Z84.2 Active 580190003 Problem Vitamin D deficiency E55.9 Active 24204159 Problem Hirsuties L68.0 Active 117752831 Problem Hyperlipidemia, mixed E78.2 Active 648794954 Problem Social phobia, unspecified F40.10 Act yolanda 47247178 Problem Morbid obesity E66.01 Active 39920 6002 Problem Conflict between patient and family Z63.9 Active 79958442 Problem BMI 45.0-49.9, adult Z68.42 Active 676951407 ALLERGIES No Information ENCOUNTERS Encounter Location Date Diagnosis [facility] [address] [address] Jul, [facility] [address] [address] Jul, [facility] [address] [address] Jul, Chronic fatigue R53.82 ; Restless leg sy ndrome G25.81 ; Vitamin D deficiency E55.9 and Vitamin B deficiency E53.9 [place] [address] [address] Jul, Generalized social phobia F40.11 ; Confl ict between patient and family Z63.9 ; Trichotillomania F63.3 ; Chronic post-traumatic stress disorder (PTSD) F43.12 and BMI 45.0-49.9, adult Z68.42 [place] [id number] [place] [address] Jun, [place] [address] [address] Jun, [facility] [address] [address] Jun, [facility] [address] [address] May, [place] [address] [place] [address] May, [facility] [address] [address] May, [facility] [address] [address] May, [facility] [address] [address] May, [facility] [id number] [place] [address] Apr, [facility] [id number] [place] [address] Apr, [facility] [address] [id number] [place] [address] Apr, [facility] [id number] [place] [address] Mar, Cervical radiculopathy M54.12 [facility] [id number] [place] [address] Mar, [facility] [id number] [place] [address] Mar, [facility] [id number] [place] [address] Mar, [facility] [id number] [place] [address] Mar, [facility] [id number] [place] [address] Mar, [facility] [id number] [place] [address] Mar, [facility] [id number] [place] [address] Mar, [facility] [id number] [place] [address] Feb, Chronic cough R05 [facility] [id number] [place] [address] 24 Feb, 2019 [facility] [id number] [place] [address] Feb, [facility] [id number] [place] [address] Feb, Cervical radiculopathy M54.12 [facility] [id number] [place] [address] Feb, Pain of left thumb M79.645 [place] [address] [address] Feb, [place] [address] [address] Feb, [place] [address] [address] Feb, [place] [address] [address] Feb, Cough present for greater than 3 weeks R 05 [place] [address] [address] Feb, Cough present for greater than 3 weeks R 05 ; Feels sick R68.89 ; History of renal cell carcinoma Z85.528 and Morbid obesity E66.01 [place] [address] [address] Jan, [facility] [address] [id number] Jan, Oral health maintenance status requiring routine preventive dental care K08.9 ; Dental examination Z01.20 and Caries K02.9 [place] [address] [address] Jan, Dysuria R30.0 [place] [address] [address] Jan, Dysuria R30.0 [place] [address] [address] Jan, Viral pharyngitis J02.9 and Morbid obesi ty E66.01 [place] [address] [address] Jan, [place] [address] [address] Jan, Left sided abdominal pain R10.9 ; Other acute postprocedural pain G89.18 ; History of renal cell carcinoma Z85.528 and Morbid obesity E66.01 [place] [address] [address] Dec, Dental examination Z01.20 [place] [address] [address] Dec, Elevated LFTs R94.[address] [address] Dec, Encounter for Medicare annual wellness e xam Z00.00 ; Chronic tension- type headache, intractable G44.221 ; Morbid (severe) obesity due to excess calories E66.01 ; Hyperlipidemia, mixed E78.2 ; Chronic pancreatitis K86.1 ; Asthma J45.909 ; Moderate episode of recurrent major depressive disorder F33.1 ; Chronic fatigue R53.82 and Social phobia, unspecified F40.[address] [address] Dec, [address] [address] Dec, [address] [address] Dec, [address] [address] Dec, Hyperlipidemia, mixed E78.2 ; History of renal cell carcinoma Z85.528 and Restless leg syndrome G25.[address] [address] Dec, Hyperlipidemia, mixed E78.2 ; Chronic pa ncreatitis K86.1 ; Restless leg syndrome G25.81 ; Nodule of left lung R91.1 ; History of renal cell carcinoma Z85.528 ; Leg swelling M79.89 ; Morbid obesity E66.01 and Observed sleep apnea G47.[address] [address] Nov, [address] [address] Nov, [facility] [address] [id number] [place] [address] Nov, [facility] [address] [facility] [id number] [address] [place] [address] Nov, Other acute postprocedural p ain G89.18 and Unspecified abdominal pain R10.9 [facility] [id number] [place] [address] October, [facility] [id number] [place] [address] October, Social phobia, generalized F40.11 ; Conf lict between patient and family Z63.9 and Morbid obesity E66.01 [facility] [id number] [place] [address] October, [facility] [address] [address] October, [facility] [id number] [place] [address] October, [facility] [id number] [place] [address] October, [place] [address] [place] [address] October, [facility] [address] [id number] [place] [address] October, [place] [address] [place] [address] October, [facility] [address] [id number] [place] [address] October, Morbid obesity E66.01 ; Routine gynecolo gical examination Z01.419 and Menopausal symptoms N95.1 [facility] [address] [id number] [place] [address] October, [address] [place] [address] Sep, [facility] [address] [id number] [place] [address] Sep, [facility] [address] [id number] [place] [address] Sep, [facility] [address] [id number] [place] [address] Sep, [facility] [address] [id number] [place] [address] Sep, Lower extremity edema R60.0 [facility] [address] [id number] [place] [address] Sep, [facility] [address] [facility] [id number] [address] [place] [address] Sep, Lower extremity edema R60.0 and Morbid obesity E66.01 [facility] [address] [id number] [place] [address] Sep, [facility] [address] [id number] [place] [address] Sep, [facility] [address] [id number] [place] [address] Aug, [facility] [address] [id number] [place] [address] Aug, Obesities, morbid E66.01 and Morbid obes ity E66.01 [facility] [address] [id number] [place] [address] Aug, [facility] [address] [place] [address] Jul, [facility] [id number] [place] [address] Jul, [facility] [address] [id number] [place] [address] Jul, [facility] [id number] [place] [address] Jul, Numbness of right hand R20.0 [facility] [address] [address] Jul, [facility] [address] [address] Jul, Numbness of right hand R20.0 [facility] [address] [address] Jul, [facility] [address] [address] Jul, [facility] [address] [address] Jul, Right-sided thoracic back pain M54.6 [facility] [address] [address] Jul, [facility] [address] [address] Jul, [facility] [address] [address] Jul, [facility] [address] [address] Jul, [facility] [address] [address] Jun, [facility] [address] [address] Jun, Acute pain of right shoulder M25.511 ; N umbness of right hand R20.0 and Trapezius muscle spasm M62.838 [facility] [address] [address] Jun, [facility] [address] [address] Jun, [facility] [address] [address] Jun, Cough R05 ; BMI 50.0-59.9, adult Z68.43 and Morbid obesity E66.01 [place] [address] [address] Jun, [place] [address] [address] 14 Jun, 2018 [facility] [id number] [place] [address] 13 Jun, 2018 BMI 45.0-49.9, adult Z68.42 and Acute non-recurrent maxillary sinusitis J01.00 [facility] [id number] [address] 09 Jun, 2018 Acute sinusitis J01.90 ; Dys uria R30.0 and BMI 45.0- 49.9, adult Z68.42 [place] [address] [address] Jun, [place] [address] [address] Jun, [place] [address] [address] May, [place] [address] [address] May, [place] [address] [address] May, [place] [address] [address] May, [place] [address] [address] May, [place] [address] [address] Apr, Generalized social phobia F40.11 ; Trich otillomania F63.3 ; Chronic post-traumatic stress disorder (PTSD) F43.12 and BMI 45.0-49.9, adult Z68.42 [place] [address] [address] Apr, [place] [address] [address] Apr, Chronic tension-type headache, intractab le G44.221 [place] [address] [address] Apr, [facility] [address] [facility] [id number] [address] [place] [address] Mar, [facility] [address] [facility] [id number] [address] [place] [address] Mar, BMI 45.0-49.9, adult Z68.42 and Pimples R23.8 [place] [address] [address] Mar, [place] [address] [address] Mar, [place] [address] [address] Mar, Decreased urination R34 ; Chronic fatigu e R53.82 ; Peripheral edema R60.9 ; Diarrhea, unspecified type R19.7 ; Non-intractable vomiting with nausea, unspecified vomiting type R11.2 ; BMI 45.0-49.9, adult Z68.42 and Chronic post- traumatic stress disorder (PTSD) F43.12 [place] [address] [address] Mar, Intestinal malabsorption, unspecified K9 0.9 ; Diarrhea, unspecified R19.7 ; Urinary urgency R39.15 ; Rectal bleeding K62.5 and Decreased urine output R34 [place] [address] [address] Mar, Decreased urine output R34 [place] [address] [address] 11 Mar, 2018 Rectal bleeding K62.5 [place] [address] [address] Mar, Rectal bleeding K62.5 [place] [address] [address] Mar, Urinary urgency R39.15 [facility] [address] [address] Mar, Urinary urgency R39.15 [facility] [address] [address] Mar, Primary osteoarthritis of right knee M17 .11 and BMI 45.0-49.9, adult Z68.42 [place] [address] [address] Mar, [facility] [address] [address] Feb, Left upper arm pain M79.622 [place] [address] [address] Feb, [facility] [address] [address] Jan, Acute pain of right knee M25.561 ; Right upper quadrant abdominal pain R10.11 and BMI 45.0-49.9, adult Z68.42 [place] [address] [address] Jan, [facility] [address] [address] Jan, [facility] [address] [address] Dec, [facility] [address] [address] Dec, Intestinal malabsorption, unspecified K9 0.9 and Diarrhea, unspecified R19.7 [facility] [address] [address] Dec, [facility] [address] [address] Dec, Strep throat J02.0 ; Intestinal malabsor ption, unspecified K90.9 ; Diarrhea, unspecified R19.7 ; Postoperative seroma involving digestive system after non-digestive system procedure K91.873 ; Hyperlipidemia, mixed E78.2 and BMI 45.0-49.9, adult Z68.42 [facility] [address] [address] Dec, [facility] [address] [address] Dec, Nausea R11.0 [facility] [address] [address] Dec, [facility] [address] [facility] [id number] [place] [address] Dec, Sore throat J02.9 ; Strep th roat J02.0 and BMI 45.0- 49.9, adult Z68.42 [facility] [address] [address] Dec, [facility] [address] [address] Dec, [facility] [address] [address] Dec, [facility] [address] [address] Dec, [facility] [address] [address] Dec, [facility] [address] [address] Dec, [facility] [address] [address] Dec, [facility] [address] [address] Dec, [facility] [address] [address] Dec, Clostridium difficile colitis A04.72 ; I ntractable vomiting with nausea, unspecified vomiting type R11.2 and BMI 45.0-49.9, adult Z68.42 [place] [address] [address] Dec, [facility] [address] [address] Nov, [place] [address] [address] Nov, [place] [address] [address] Nov, [place] [address] [address] Nov, [facility] [place] [address] [address] Nov, [place] [address] [address] Nov, Hyperlipidemia, mixed E78.2 [facility] [place] [address] [address] Nov, Acute suppurative otitis med ia of right ear without spontaneous rupture of tympanic membrane, recurrence not specified H66.001 and BMI 45.0-49.9, adult Z68.42 [place] [address] [address] Nov, Hyperlipidemia, mixed E78.2 [place] [address] [address] Nov, [place] [address] [address] Nov, [place] [address] [address] Nov, Nodule of left lung R91.1 [place] [address] [address] Nov, Medicare annual wellness visit, initial Z00.00 [...] adult Z68.42 and Encounter for immunization Z23 [address] [address] October, [address] [address] October, Nodule of left lung R91.[address] [address] October, Nodule of left lung R91.[address] [address] October, Recurrent major depressive disorder, in partial remission F33.41 ; Restless leg syndrome G25.81 ; Generalized social phobia F40.11 ; Chronic post- traumatic stress disorder (PTSD) F43.12 ; BMI 45.0-49.9, adult Z68.42 and Trichotillomania F63.[address] [address] October, [address] [address] Sep, Chronic fatigue R53.82 and BMI 45.0-49.9 , adult Z68.[address] [address] Aug, [address] [address] Jul, Restless leg syndrome G25.81 and B12 def iciency E53.[address] [id number] [place] [address] Jul, [place] [address] [address] Jul, [place] [address] [address] Jun, [place] [address] [address] Jun, Fatigue, unspecified type R53.83 ; Histo ry of renal cell carcinoma Z85.528 ; Chronic pancreatitis K86.1 ; Restless leg syndrome G25.81 ; Dark urine R82.99 and BMI 45.0-49.9, adult Z68.42 [place] [address] [address] Jun, [place] [address] [address] Jun, [place] [address] [address] Jun, [place] [address] [address] Jun, [place] [address] [address] May, Chronic post-traumatic stress disorder ( PTSD) F43.12 ; Moderate episode of recurrent major depressive disorder F33.1 ; Trichotillomania F63.3 and Generalized social phobia F40.11 [place] [address] [address] May, [place] [address] [address] May, Chronic post-traumatic stress disorder ( PTSD) F43.12 ; Moderate episode of recurrent major depressive disorder F33.1 ; Trichotillomania F63.3 and Generalized social phobia F40.11 [place] [address] [address] May, Hyperlipidemia, mixed E78.2 ; Morbid (se nehemias) obesity due to excess calories E66.01 ; Chronic post-traumatic stress disorder (PTSD) F43.12 ; Moderate episode of recurrent major depressive disorder F33.1 ; Trichotillomania F63.3 and Generalized social phobia F40.11 [place] [address] [address] Apr, [place] [address] [address] Apr, Hyperlipidemia, mixed E78.2 ; Morbid (se nehemias) obesity due to excess calories E66.01 ; Chronic post-traumatic stress disorder (PTSD) F43.12 ; Moderate episode of recurrent major depressive disorder F33.1 ; Trichotillomania F63.3 and Generalized social phobia F40.11 [place] [address] [address] Apr, Trichotillomania F63.3 ; Generalized soc ial phobia F40.11 ; Chronic post-traumatic stress disorder (PTSD) F43.12 and Moderate episode of recurrent major depressive disorder F33.1 [place] [address] [address] Apr, [place] [address] [address] Apr, [place] [address] [address] Mar, Moderate episode of recurrent major depr essive disorder F33.1 ; Trichotillomania F63.3 ; Chronic post-traumatic stress disorder (PTSD) F43.12 ; Generalized social phobia F40.11 and Restless leg syndrome G25.81 [place] [address] [address] Mar, [place] [address] [address] Mar, [place] [address] [address] Feb, Left kidney mass N28.89 [facility] [address] [address] Jan, [facility] [address] [address] Dec, Polydipsia R63.1 ; Chronic pancreatitis K86.1 and Fatigue, unspecified type R53.83 [facility] [address] [address] Nov, [facility] [address] [address] Nov, [facility] [address] [address] Nov, Headache around the eyes R51 [place] [address] [address] Nov, [facility] [address] [address] October, STD exposure Z20.2 [place] [address] [address] October, STD exposure Z20.2 [place] [address] [address] October, Chronic post-traumatic stress disorder ( PTSD) F43.12 ; Generalized social phobia F40.11 ; Trichotillomania F63.3 and Restless leg syndrome G25.81 [facility] [id number] [place] [address] October, [facility] [address] [address] Sep, [facility] [address] [address] Aug, [facility] [address] [address] Aug, [facility] [address] [address] 08 Aug, 2016 Neck mass R22.1 [place] [address] [address] 03 Aug, 2016 Atelectasis J98.11 [place] [address] [address] 28 Jul, 2016 Hyperlipidemia, mixed E78.2 ; Atypical p neumonia J18.9 and Neck mass R22.1 [place] [address] [address] 15 Jul, 2016 Hemoptysis R04.2 [place] [address] [address] 08 Jul, 2016 Acute non-recurrent pansinusitis J01.40 ; Hemoptysis R04.2 ; Polydipsia R63.1 and Malaise R53.81 [facility] [place] [id number] [place] [id number] May, Other viral agents as the ca use of diseases classified elsewhere B97.89 and Acute upper respiratory infection, unspecified J06.9 [facility] [place] [id number] [address] [place] [id number] Mar, Nausea R11.0 [facility] [address] [address] Dec, Hives L50.9 [place] [address] [address] 14 Dec, 2015 [facility] [address] [place], [place] [id number] [address] [place] [address] 10 Dec, 2015 Cutaneous abscess of limb, u nspecified L02.419 ; Cellulitis of unspecified part of limb L03.119 ; Encounter for incision and drainage procedure Z01.89 and Encounter for recheck of abscess following i ncision and drainage Z09 [facility] [place] [id number] [address] [place] [id number] Dec, Abscess of leg, right L02.41 5 [place] [place] [address] [address] Dec, Cellulitis of unspecified part of limb L 03.119 and Cutaneous abscess of limb, unspecified L02.419 [place] [address] [address] Dec, [place] [address] [address] Dec, [facility] [place] [address] [address] [place] [id number] [place] [address] Aug, [place] [address] [address] Aug, [facility] [place] [id number] [place] [address] Jul, Pain in unspecified wrist M2 5.539 and Back pain, thoracic M54.6 [facility] [address] [place] [address] Jun, Strain of right wrist, initi al encounter S66.911A [place] [address] [address] Jun, Chronic pancreatitis, unspecified pancre atitis type K86.1 ; Hirsuties L68.0 ; Morbid (severe) obesity due to excess calories E66.01 ; Chronic pancreatitis K86.1 and Asthma J45.909 [place] [address] [address] May, [place] [address] [address] May, Hyperlipidemia, mixed E78.2 and Muscle s pasm of back M62.830 [place] [address] [address] Apr, [place] [address] [address] Apr, Torticollis M43.6 [facility] [address] [address] Apr, Right-sided thoracic back pain M54.6 [facility] [address] [address] Mar, Rash R21 [facility] [address] [address] Mar, [facility] [address] [address] Jan, [facility] [address] [address] Dec, [facility] [address] [address] Dec, Urinary frequency 788.41 and Nocturia mo re than twice per night 788.43 [facility] [address] [address] Nov, [facility] [address] [address] Nov, [facility] [address] [address] Nov, Abdominal pain 789.00 [place] [address] [address] October, TDAP DX V06.1 [facility] [address] [address] October, [facility] [address] [address] October, Disturbance of skin sensation 782.0 ; Wr ist pain, right 719.43 ; Hyperlipidemia 272.4 and Skin lesion of face 709.9 [facility] [address] [address] Sep, [facility] [address] [place] [id number] [place] [address] 13 Sep, 2014 [facility] [place] [facility] [address] [facility] [id number] [place] [address] 26 Aug, 2014 [facility] [place] [facility] [address] [facility] [id number] [place] [address] Aug, [facility] [place] [facility] [address] [id number] [place] [address] Aug, [facility] [place] [facility] [address] [id number] [place] [address] Aug, [facility] [place] [facility] [address] [facility] [id number] [place] [address] 16 Aug, 2014 [facility] [place] [facility] [address] [id number] [place] [address] 16 Aug, 2014 [facility] [place] [facility] [address] [id number] [place] [address] 14 Aug, 2014 [facility] [place] [facility] [address] [id number] [place] [address] 14 Aug, 2014 [facility] [place] [facility] [address] [id number] [place] [address] Aug, [facility] [place] [facility] [address] [id number] [place] [address] Aug, [facility] [place] [facility] [address] [id number] [place] [address] 04 Aug, 2014 [facility] [place] [facility] [address] [id number] [place] [address] 04 Aug, 2014 [facility] [place] [facility] [address] [id number] [place] [address] Aug, [facility] [place] [facility] [address] [id number] [place] [address] Aug, [facility] [place] [facility] [address] [id number] [place] [address] Jul, [facility] [place] [facility] [address] [id number] [place] [address] Jul, [facility] [place] [facility] [address] [id number] [place] [address] Jul, [facility] [place] [facility] [address] [id number] [place] [address] Jul, [facility] [place] [facility] [address] [id number] [place] [address] Jul, [facility] [place] [facility] [address] [id number] [place] [address] Jul, [facility] [place] [facility] [address] [id number] [place] [address] Jun, [facility] [place] [facility] [address] [id number] [place] [address] Jun, [facility] [place] [facility] [address] [id number] [place] [address] Jun, [facility] [place] [facility] [address] [id number] [place] [address] Jun, [facility] [place] [facility] [address] [id number] [place] [address] Jun, [facility] [place] [facility] [address] [id number] [place] [address] Jun, [facility] [place] [facility] [address] [id number] [place] [address] Jun, [facility] [place] [facility] [address] [place] [id number] [place] [address] Jun, [facility] [place] [facility] [address] [id number] [place] [address] May, [facility] [place] [facility] [address] [id number] [place] [address] May, [facility] [place] [facility] [address] [id number] [place] [address] May, [facility] [place] [facility] [address] [id number] [place] [address] May, [facility] [place] [facility] [address] [id number] [place] [address] 15 May, 2014 [facility] [place] [facility] [address] [id number] [place] [address] May, [facility] [place] [facility] [address] [id number] [place] [address] May, [facility] [place] [facility] [address] [id number] [place] [address] May, [facility] [place] [facility] [address] [id number] [place] [address] May, [facility] [place] [facility] [address] [id number] [place] [address] May, [facility] [place] [facility] [address] [id number] [place] [address] May, [facility] [place] [facility] [address] [id number] [place] [address] May, [facility] [place] [facility] [address] [id number] [place] [address] Apr, [facility] [place] [facility] [address] [id number] [place] [address] Apr, [facility] [place] [facility] [address] [id number] [place] [address] Apr, [facility] [place] [facility] [address] [id number] [place] [address] Apr, [facility] [place] [facility] [address] [id number] [place] [address] Apr, [facility] [place] [facility] [address] [id number] [place] [address] Apr, [facility] [place] [facility] [address] [id number] [place] [address] Apr, [facility] [place] [facility] [address] [id number] [place] [address] Apr, [facility] [place] [facility] [address] [id number] [place] [address] Apr, [facility] [place] [facility] [address] [id number] [place] [address] Apr, [facility] [place] [facility] [address] [id number] [place] [address] Apr, [facility] [place] [facility] [address] [id number] [place] [address] Apr, [facility] [place] [facility] [address] [id number] [place] [address] Mar, [facility] [place] [facility] [address] [id number] [place] [address] Mar, [facility] [place] [facility] [address] [id number] [place] [address] Mar, [facility] [place] [facility] [address] [id number] [place] [address] Mar, [facility] [place] [facility] [address] [id number] [place] [address] Feb, [facility] [place] [facility] [address] [id number] [place] [address] Feb, 2013 [facility] [place] [facility] [address] [id number] [place] [address] 05 Feb, 2014 [facility] [place] [facility] [address] [id number] [place] [address] Feb, 2013 [facility] [place] [facility] [address] [id number] [place] [address] Feb, 2013 [facility] [place] [facility] [address] [id number] [place] [address] 05 Feb, 2013 [facility] [place] [facility] [address] [id number] [place] [address] Jan, [facility] [place] [facility] [address] [id number] [place] [address] Jan, [facility] [place] [facility] [address] [id number] [place] [address] Jan, [facility] [place] [facility] [address] [id number] [place] [address] Jan, [facility] [place] [facility] [address] [id number] [place] [address] Jan, [facility] [place] [facility] [address] [id number] [place] [address] Jan, [facility] [place] [facility] [address] [facility] [id number] [place] [address] Jan, [facility] [place] [facility] [address] [id number] [place] [address] Jan, [facility] [place] [facility] [address] [facility] [id number] [place] [address] Jan, [facility] [place] [facility] [address] [id number] [place] [address] Jan, [facility] [place] [facility] [address] [facility] [id number] [place] [address] Jan, [facility] [place] [facility] [address] [id number] [place] [address] Jan, [facility] [place] [facility] [address] [facility] [id number] [place] [address] Jan, [facility] [place] [facility] [address] [id number] [place] [address] Jan, [facility] [place] [facility] [address] [id number] [place] [address] Dec, [facility] [place] [facility] [address] [id number] [place] [address] Dec, [facility] [place] [facility] [address] [facility] [id number] [place] [address] Dec, [facility] [place] [facility] [address] [id number] [place] [address] Dec, [facility] [place] [facility] [address] [facility] [id number] [place] [address] Nov, [facility] [place] [facility] [address] [id number] [place] [address] Nov, [facility] [place] [facility] [address] [id number] [place] [address] Nov, [facility] [place] [facility] [address] [facility] [id number] [place] [address] Nov, [facility] [place] [facility] [address] [facility] [id number] [place] [address] Nov, [facility] [place] [facility] [address] [id number] [place] [address] October, [facility] [place] [facility] [address] [id number] [place] [address] October, [facility] [place] [facility] [address] [id number] [place] [address] October, [facility] [place] [facility] [address] [id number] [place] [address] October, [facility] [place] [facility] [address] [id number] [place] [address] October, [facility] [place] [facility] [address] [id number] [place] [address] October, [facility] [place] [facility] [address] [id number] [place] [address] October, [facility] [place] [facility] [address] [id number] [place] [address] October, [facility] [place] [facility] [address] [id number] [place] [address] October, [facility] [place] [facility] [address] [id number] [place] [address] October, [facility] [place] [facility] [address] [id number] [place] [address] October, [facility] [place] [facility] [address] [id number] [place] [address] October, [facility] [place] [facility] [address] [id number] [place] [address] October, [facility] [place] [facility] [address] [id number] [place] [address] October, [facility] [place] [facility] [address] [id number] [place] [address] 17 Sep, 2013 [facility] [place] [facility] [address] [id number] [place] [address] 17 Sep, 2013 [facility] [place] [facility] [address] [id number] [place] [address] 14 Sep, 2013 [facility] [place] [facility] [address] [id number] [place] [address] 14 Sep, 2013 [facility] [place] [facility] [address] [id number] [place] [address] 10 Sep, 2013 [facility] [place] [facility] [address] [id number] [place] [address] Sep, [facility] [place] [facility] [address] [id number] [place] [address] Sep, [facility] [place] [facility] [address] [id number] [place] [address] Sep, [facility] [place] [facility] [address] [id number] [place] [address] Sep, [facility] [place] [facility] [address] [id number] [place] [address] Sep, [facility] [place] [facility] [address] [id number] [place] [address] Sep, [facility] [place] [facility] [address] [id number] [place] [address] Sep, [facility] [place] [facility] [address] [id number] [place] [address] Sep, [facility] [place] [facility] [address] [id number] [place] [address] Sep, [facility] [place] [facility] [address] [id number] [place] [address] Sep, [facility] [place] [facility] [address] [id number] [place] [address] Aug, [facility] [place] [facility] [address] [id number] [place] [address] Aug, [facility] [place] [facility] [address] [facility] [id number] [place] [address] Aug, [facility] [place] [facility] [address] [facility] [id number] [place] [address] Aug, [facility] [place] [facility] [address] [id number] [place] [address] Jul, [facility] [place] [facility] [address] [id number] [place] [address] Jul, [facility] [place] [facility] [address] [facility] [id number] [place] [address] Jul, [facility] [place] [facility] [address] [id number] [place] [address] Jul, [facility] [place] [facility] [address] [id number] [place] [address] Jun, [facility] [place] [facility] [address] [id number] [place] [address] Jun, [facility] [place] [facility] [address] [id number] [place] [address] Jun, [facility] [place] [facility] [address] [id number] [place] [address] Jun, [facility] [place] [facility] [address] [id number] [place] [address] Jun, [facility] [place] [facility] [address] [id number] [place] [address] Jun, [facility] [place] [facility] [address] [id number] [place] [address] Jun, [facility] [place] [facility] [address] [id number] [place] [address] Jun, [facility] [place] [facility] [address] [id number] [place] [address] May, [facility] [place] [facility] [address] [id number] [place] [address] May, [facility] [place] [facility] [address] [id number] [place] [address] 18 May, 2012 [facility] [place] [facility] [address] [facility] [id number] [place] [address] 18 May, 2013 [facility] [place] [facility] [address] [id number] [place] [address] 17 May, 2013 [facility] [place] [facility] [address] [facility] [id number] [place] [id number] 17 May, 2012 [facility] [place] [facility] [address] [id number] [place] [address] 17 May, 2013 [facility] [place] [facility] [address] [id number] [place] [address] 17 May, 2013 [facility] [place] [facility] [address] [id number] [place] [address] 16 May, 2013 [facility] [place] [facility] [address] [id number] [place] [address] 16 May, 2013 [facility] [place] [facility] [address] [id number] [place] [address] 14 May, 2013 [facility] [place] [facility] [address] [id number] [place] [address] 14 May, 2013 [facility] [place] [facility] [address] [id number] [place] [address] 13 May, 2013 [facility] [place] [facility] [address] [id number] [place] [address] 13 May, 2013 [facility] [place] [facility] [address] [id number] [place] [address] 12 May, 2013 [facility] [place] [facility] [address] [id number] [place] [address] 12 May, 2013 [facility] [place] [facility] [address] [id number] [place] [address] 11 May, 2013 [facility] [place] [facility] [address] [id number] [place] [address] 11 May, 2013 [facility] [place] [facility] [address] [id number] [place] [address] 26 Apr, 2013 [facility] [place] [facility] [address] [id number] [place] [address] Apr, [facility] [place] [facility] [address] [id number] [place] [address] Apr, [facility] [place] [facility] [address] [id number] [place] [address] Apr, [facility] [place] [facility] [address] [id number] [place] [address] Aug, [facility] [place] [facility] [address] [id number] [place] [address] Aug, [facility] [place] [facility] [address] [id number] [place] [address] Aug, [facility] [place] [facility] [address] [id number] [place] [address] Aug, [facility] [place] [facility] [address] [id number] [place] [address] Jul, [facility] [place] [facility] [address] [id number] [place] [address] Jun, [facility] [place] [facility] [address] [id number] [place] [address] Jun, [facility] [place] [facility] [address] [id number] [place] [address] Jun, [facility] [place] [facility] [address] [id number] [place] [address] Jun, [facility] [place] [facility] [address] [id number] [place] [address] May, [facility] [place] [facility] [address] [id number] [place] [address] May, [facility] [place] [facility] [address] [id number] [place] [address] May, [facility] [place] [facility] [address] [id number] [place] [address] May, [facility] [place] [facility] [address] [id number] [place] [address] May, [facility] [place] [facility] [address] [id number] [place] [address] May, [facility] [place] [facility] [address] [id number] [place] [address] May, [facility] [place] [facility] [address] [id number] [place] [address] Apr, [facility] [place] [facility] [address] [id number] [place] [address] Apr, [facility] [place] [facility] [address] [id number] [place] [address] Apr, [facility] [address] [id number] [place] [address] Apr, [facility] [address] [id number] [place] [address] Apr, [facility] [address] [id number] [place] [address] Apr, [facility] [address] [id number] [place] [address] Apr, [facility] [address] [id number] [place] [address] Mar, [facility] [address] [id number] [place] [address] Mar, [facility] [address] [id number] [place] [address] Mar, [facility] [address] [id number] [place] [address] Mar, [facility] [address] [id number] [place] [address] Mar, [facility] [address] [id number] [place] [address] Mar, [facility] [address] [id number] [place] [address] Mar, [facility] [address] [id number] [place] [address] Mar, [facility] [address] [id number] [place] [address] Mar, [facility] [address] [id number] [place] [address] Mar, [facility] [address] [id number] [place] [address] Mar, [facility] [address] [id number] [place] [address] Mar, [facility] [address] [id number] [place] [address] Feb, [facility] [address] [id number] [place] [address] Jan, [facility] [address] [id number] [place] [address] Jan, [facility] [address] [id number] [place] [address] Jan, [facility] [address] [id number] [place] [address] Jan, [facility] [address] [id number] [place] [address] Jan, [facility] [address] [id number] [place] [address] Dec, [facility] [address] [id number] [place] [address] Dec, [facility] [address] [id number] [place] [address] Nov, [facility] [address] [id number] [place] [address] Nov, [facility] [address] [id number] [place] [address] Nov, [facility] [address] [id number] [place] [address] October, [facility] [id number] [place] [address] October, [facility] [address] [id number] [place] [address] October, [facility] [address] [id number] [place] [address] October, [facility] [address] [id number] [place] [address] October, [facility] [address] [id number] [place] [address] October, [facility] [address] [id number] [place] [address] October, [facility] [address] [id number] [place] [address] Sep, [facility] [address] [id number] [place] [address] 26 Sep, 2011 [facility] [address] [id number] [place] [address] 26 Sep, 2011 [facility] [address] [id number] [place] [address] 25 Sep, 2011 [facility] [address] [id number] [place] [address] 24 Sep, 2011 [facility] [address] [id number] [place] [address] 19 Sep, 2011 [facility] [address] [id number] [place] [address] 17 Sep, 2011 [facility] [address] [id number] [place] [address] 16 Sep, 2011 [facility] [address] [id number] [place] [address] 16 Sep, 2011 [facility] [address] [id number] [place] [address] 14 Sep, 2011 [facility] [address] [id number] [place] [address] 13 Sep, 2011 [facility] [address] [id number] [place] [address] 10 Sep, 2011 [facility] [address] [id number] [place] [address] 09 Sep, 2011 [facility] [address] [id number] [place] [address] 27 Aug, 2011 [facility] [address] [id number] [place] [address] Aug, [facility] [address] [id number] [place] [address] 08 Aug, 2011 [facility] [address] [id number] [place] [address] 06 Aug, 2011 [facility] [address] [id number] [place] [address] 28 Jul, 2011 [facility] [address] [id number] [place] [address] 22 Jul, 2011 [facility] [address] [id number] [place] [address] 16 Jul, 2011 [facility] [address] [id number] [place] [address] 15 Jul, 2011 [facility] [address] [id number] [place] [address] 14 Jul, 2011 [facility] [address] [id number] [place] [address] 10 Jul, 2011 [facility] [address] [id number] [place] [address] Jun, [facility] [address] [id number] [place] [address] Jun, [facility] [address] [id number] [place] [address] Jun, [facility] [address] [id number] [place] [address] Jun, [facility] [address] [id number] [place] [address] Jun, [facility] [address] [id number] [place] [address] May, [facility] [address] [id number] [place] [address] May, [facility] [address] [id number] [place] [address] 14 May, 2011 [facility] [address] [id number] [place] [address] 14 May, 2011 [facility] [address] [id number] [place] [address] May, [facility] [address] [id number] [place] [address] May, [facility] [address] [id number] [place] [address] May, [facility] [address] [id number] [place] [address] 15 Apr, 2011 [facility] [address] [id number] [place] [address] 15 Apr, 2011 [facility] [address] [id number] [place] [address] Apr, [facility] [address] [id number] [place] [address] Apr, [facility] [address] [id number] [place] [address] Apr, [facility] [address] [id number] [place] [address] Apr, [facility] [id number] [place] [address] Mar, [facility] [address] [id number] [place] [address] Mar, [facility] [address] [id number] [place] [address] Mar, [facility] [address] [id number] [place] [address] Mar, [facility] [address] [id number] [place] [address] Jan, [facility] [address] [id number] [place] [address] Dec, [facility] [address] [id number] [place] [address] Dec, [facility] [address] [facility] [id number] [place] [address] October, [facility] [address] [id number] [place] [address] Sep, [facility] [address] [id number] [place] [address] 14 Sep, 2010 [facility] [address] [id number] [place] [address] 17 Jul, 2010 [facility] [address] [id number] [place] [address] 16 Jul, 2010 [facility] [address] [id number] [place] [address] May, [facility] [address] [id number] [place] [address] May, [facility] [address] [id number] [place] [address] 08 May, 2010 [facility] [address] [id number] [place] [address] May, [facility] [address] [id number] [place] [address] Apr, [facility] [address] [id number] [place] [address] Apr, [facility] [address] [id number] [place] [address] Apr, [facility] [address] [id number] [place] [address] 18 Apr, 2010 [facility] [address] [id number] [place] [address] Apr, [facility] [address] [id number] [place] [address] Mar, [facility] [address] [id number] [place] [address] 14 Mar, 2010 [facility] [address] [id number] [place] [address] 13 Mar, 2010 [facility] [address] [id number] [place] [address] Mar, [facility] [address] [id number] [place] [address] Jan, [facility] [address] [id number] [place] [address] 15 Dec, 2009 [facility] [address] [id number] [place] [address] Sep, [facility] [address] [id number] [place] [address] May, [facility] [address] [id number] [place] [address] May, [facility] [address] [id number] [place] [address] May, [facility] [address] [id number] [place] [address] Apr, [facility] [address] [id number] [place] [address] Apr, [facility] [address] [id number] [place] [address] 10 Apr, 2009 [facility] [address] [id number] [place] [address] Apr, [facility] [address] [id number] [place] [address] Apr, [facility] [address] [id number] [place] [address] Mar, [facility] [address] [id number] [place] [address] Mar, [facility] [address] [id number] [place] [address] Jul, IMMUNIZATIONS No Known Immunizations SOCIAL HISTORY Never Assessed REASON FOR VISIT PLAN OF CARE VITAL SIGNS Height 62 in 2013-10-28 Weight 260.7 lbs 2013-10-28 Temperature 98.2 degrees Fahrenheit 2013-10-28 Heart Rate 88 bpm 2013-10-28 Respiratory Rate 18 2013-10-28 Blood pressure systolic 124 mmHg 2013-10-28 Blood pressure diastolic 78 mmHg 2013-10-28 MEDICATIONS Unknown Medications RESULTS No Results PROCEDURES Procedure Date Ordered Result Body Site THER/PROPH/DIAG INJ, SC/IM October 28, 2013 COMPLETE CBC W/AUTO DIFF WBC October 28, 2013 ASSAY OF LIPASE October 28, 2013 HEPATIC FUNCTION PANEL October 28, 2013 PHENERGAN 12.5 MG October 28, 2013 VENIPUNCT, ROUTINE* October 28, 2013 INSTRUCTIONS MEDICATIONS ADMINISTERED No Known Medications [...] and replaced VC 10/2018 Hospitalization History Cellulitis-[facility] Hospitalization History [facility] [place]- Abd pain 03/07/2017 Hospitalization History [facility] [place]- Abd pain 03/14/2017 Hospitalization History [facility] [place]- No bowel movement, rash 04/13/2017 Hospitalization History [facility] [place]- Abd pain r/ t kidney surgery on 04/10/17 04/17/2017 Hospitalization History [facility] [place]- Abd pain r/ t kidney surgery on 04/10/17 04/18/2017 Hospitalization History [facility] [place]- Lower abd pain 04/17 Hospitalization History [facility]- Cannot urinate 05/17 Hospitalization History [facility]- Pancreatitis Sx Hospitalization History [facility] [place]- Stomach pain 2017 Hospitalization History [facility] [place]- Left side pain 07/19 Hospitalization History [facility]- Incision site infec tion 08/30/2017 Hospitalization History [facility]- Post Op Serom a/Hematoma Left Abdomen. Discharged 09/04/17- Dr Daniel 09/02/2017 Hospitalization History [facility] [place]- Right shoulder and back pain 10/22/2017 Hospitalization History [facility] [place]- Shoulder/Back pain 11/11/2017 Hospitalization History [facility]- Right shoulder blad e pain 12/04/2017 Hospitalization History [facility]- C-Diff 12/13/2017 Hospitalization History C diff et MRSA 12/27/2017 Hospitalization History [facility] Bowel Obstruction 10/2018 Hospitalization History [facility] [place]- Abdominal pain and nausea 01/08/2019
--- OUTSIDE RECORDS SUMMARY | 2019-10-17 05:10 | XMS REPORT ---
Author Author Janeth ALVAREZ Organization [facility] Address [address] [place] [address] Care Team Providers Care Care Management Assistant Name Role Phone OSMAN ALVAREZ Unavailable PROBLEMS Type Condition ICD9-CM Code CCE07-CI Code Onset Dates Condition S tatus SNOMED Code Problem History of renal cell carcinoma Z85.528 Active 920003793 Problem Hepatic steatosis K76.0 Active 19 5869056 Problem Nodule of left lung R91.1 Active 527751954 Problem Right carpal tunnel syndrome G56.01 A ctive 934618631490903 Problem Mild obstructive sleep apnea G47.33 A ctive 32956555 Problem Chronic fatigue R53.82 Active 8422 9001 Problem Moderate episode of recurrent major depressive disorder F33.1 Active 465208356 Problem Chronic pancreatitis K86.1 Active 899800694 Problem Chronic tension-type headache, intractable G44.221 Active 633483616 Problem Polydipsia R63.1 Active 52006136 Problem Asthma J45.909 Active 459410462 Problem Chronic post-traumatic stress disorder (PTSD) F43. 12 Active 064904927 Problem Atelectasis J98.11 Active 77477764 Problem Trichotillomania F63.3 Active 171 64704 Problem Restless leg syndrome G25.81 Active 74423472 Problem Intestinal malabsorption, unspecified K90.9 Active 15391426 Problem Primary osteoarthritis of right knee M17.11 Active [id number] Problem Menopausal symptoms N95.1 Active 58862704 Problem Generalized social phobia F40.11 Acti ve 42073132 Problem FH: polycystic ovary Z84.2 Active 202229592 Problem Vitamin D deficiency E55.9 Active 58104388 Problem Hirsuties L68.0 Active 973316212 Problem Hyperlipidemia, mixed E78.2 Active 543141205 Problem Social phobia, unspecified F40.10 Act yolanda 37212007 Problem Morbid obesity E66.01 Active 45506 6002 Problem Conflict between patient and family Z63.9 Active 28526100 Problem BMI 45.0-49.9, adult Z68.42 Active 724650224 ALLERGIES No Information ENCOUNTERS Encounter Location Date Diagnosis [facility] [address] [address] Jul, [facility] [address] [address] Jul, Chronic fatigue R53.82 ; Restless leg sy ndrome G25.81 ; Vitamin D deficiency E55.9 and Vitamin B deficiency E53.9 [facility] [address] [address] Jul, Generalized social phobia F40.11 ; Confl ict between patient and family Z63.9 ; Trichotillomania F63.3 ; Chronic post-traumatic stress disorder (PTSD) F43.12 and BMI 45.0-49.9, adult Z68.42 [place] [address] [address] Jun, [facility] [address] [address] Jun, [facility] [address] [address] Jun, [facility] [address] [address] May, [address] [place] [address] May, [facility] [address] [address] May, [facility] [address] [address] May, [facility] [address] [address] May, [facility] [address] [address] Apr, [place] [id number] [place] [address] Apr, [facility] [id number] [place] [address] Apr, [facility] [id number] [place] [address] Mar, Cervical radiculopathy M54.12 [facility] [id number] [place] [address] Mar, [facility] [id number] [place] [address] Mar, [facility] [id number] [place] [address] Mar, [facility] [id number] [place] [address] Mar, [facility] [id number] [place] [address] Mar, [facility] [id number] [place] [address] Mar, [facility] [id number] [place] [address] Mar, [facility] [id number] [place] [address] Feb, Chronic cough R05 [facility] [id number] [place] [address] 24 Feb, 2019 [facility] [id number] [place] [address] 23 Feb, 2019 [facility] [id number] [place] [address] 20 Feb, 2019 Cervical radiculopathy M54.12 [facility] [id number] [place] [address] 17 Feb, 2019 Pain of left thumb M79.645 [facility] [address] [id number] [place] [address] Feb, [place] [address] [address] Feb, [place] [address] [address] Feb, [facility] [address] [address] Feb, Cough present for greater than 3 weeks R 05 [place] [address] [address] Feb, Cough present for greater than 3 weeks R 05 ; Feels sick R68.89 ; History of renal cell carcinoma Z85.528 and Morbid obesity E66.01 [place] [address] [address] Jan, [facility] [id number] [place] [id number] Jan, Oral health maintenance status requiring routine preventive dental care K08.9 ; Dental examination Z01.20 and Caries K02.9 [place] [address] [address] Jan, Dysuria R30.0 [place] [address] [address] Jan, Dysuria R30.0 [place] [address] [address] Jan, Viral pharyngitis J02.9 and Morbid obesi ty E66.01 [place] [address] [address] Jan, [place] [address] [address] Jan, Left sided abdominal pain R10.9 ; Other acute postprocedural pain G89.18 ; History of renal cell carcinoma Z85.528 and Morbid obesity E66.01 [place] [address] [address] Dec, Dental examination Z01.20 [place] [address] [address] Dec, Elevated LFTs R94.5 [place] [address] [address] Dec, Encounter for Medicare annual wellness e xam Z00.00 ; Chronic tension- type headache, intractable G44.221 ; Morbid (severe) obesity due to excess calories E66.01 ; Hyperlipidemia, mixed E78.2 ; Chronic pancreatitis K86.1 ; Asthma J45.909 ; Moderate episode of recurrent major depressive disorder F33.1 ; Chronic fatigue R53.82 and Social phobia, unspecified F40.[address] [address] Dec, [address] [address] Dec, [address] [address] Dec, [address] [address] Dec, Hyperlipidemia, mixed E78.2 ; History of renal cell carcinoma Z85.528 and Restless leg syndrome G25.[address] [address] Dec, Hyperlipidemia, mixed E78.2 ; Chronic pa ncreatitis K86.1 ; Restless leg syndrome G25.81 ; Nodule of left lung R91.1 ; History of renal cell carcinoma Z85.528 ; Leg swelling M79.89 ; Morbid obesity E66.01 and Observed sleep apnea G47.[address] [address] Nov, [address] [address] Nov, [address] [address] Nov, [facility] [address] [facility] [id number] [place] [address] Nov, Other acute postprocedural p ain G89.18 and Unspecified abdominal pain R10.9 [facility] [id number] [place] [address] October, [facility] [address] [address] October, Social phobia, generalized F40.11 ; Conf lict between patient and family Z63.9 and Morbid obesity E66.01 [facility] [id number] [place] [address] October, [facility] [address] [address] October, [facility] [address] [address] October, [facility] [address] [address] October, [address] [place] [address] October, [facility] [id number] [place] [address] October, [address] [place] [address] October, [facility] [id number] [place] [address] October, Morbid obesity E66.01 ; Routine gynecolo gical examination Z01.419 and Menopausal symptoms N95.1 [facility] [id number] [place] [address] October, [address] [place] [address] Sep, [facility] [address] [address] Sep, [facility] [address] [id number] [place] [address] Sep, [facility] [id number] [place] [address] Sep, [facility] [id number] [place] [address] Sep, Lower extremity edema R60.0 [facility] [id number] [place] [address] Sep, [facility] [address] [facility] [id number] [place] [address] Sep, Lower extremity edema R60.0 and Morbid obesity E66.01 [facility] [id number] [place] [address] Sep, [facility] [id number] [place] [address] Sep, [facility] [id number] [place] [address] Aug, [facility] [id number] [place] [address] Aug, Obesities, morbid E66.01 and Morbid obes ity E66.01 [facility] [id number] [place] [address] Aug, [facility] [place] [facility] [address] [place] [address] Jul, [facility] [id number] [place] [address] Jul, [facility] [id number] [place] [address] Jul, [facility] [id number] [place] [address] Jul, Numbness of right hand R20.0 [facility] [id number] [place] [address] Jul, [facility] [address] [address] Jul, Numbness of right hand R20.0 [facility] [address] [address] Jul, [facility] [address] [address] Jul, [facility] [address] [address] Jul, Right-sided thoracic back pain M54.6 [facility] [address] [address] Jul, [facility] [address] [address] Jul, [facility] [address] [address] Jul, [facility] [address] [address] Jul, [facility] [address] [address] Jun, [facility] [address] [address] Jun, Acute pain of right shoulder M25.511 ; N umbness of right hand R20.0 and Trapezius muscle spasm M62.838 [facility] [address] [address] Jun, [facility] [address] [address] Jun, [facility] [address] [address] Jun, Cough R05 ; BMI 50.0-59.9, adult Z68.43 and Morbid obesity E66.01 [facility] [address] [address] Jun, [facility] [address] [address] Jun, [facility] [address] [place] [id number] [place] [address] 13 Jun, 2018 BMI 45.0-49.9, adult Z68.42 and Acute non-recurrent maxillary sinusitis J01.00 [facility] [id number] [place] [address] 09 Jun, 2018 Acute sinusitis J01.90 ; Dys uria R30.0 and BMI 45.0- 49.9, adult Z68.42 [place] [address] [address] 07 Jun, 2018 [place] [address] [address] Jun, [place] [address] [address] May, [place] [address] [address] May, [place] [address] [address] May, [place] [address] [address] May, [place] [address] [address] May, [place] [address] [address] Apr, Generalized social phobia F40.11 ; Trich otillomania F63.3 ; Chronic post-traumatic stress disorder (PTSD) F43.12 and BMI 45.0-49.9, adult Z68.42 [place] [address] [address] Apr, [place] [address] [address] Apr, Chronic tension-type headache, intractab le G44.221 [place] [address] [address] Apr, [facility] [address] [facility] [id number] [place] [address] Mar, [facility] [address] [facility] [id number] [address] [place] [address] Mar, BMI 45.0-49.9, adult Z68.42 and Pimples R23.8 [place] [address] [address] Mar, [place] [address] [address] Mar, [place] [address] [address] Mar, Decreased urination R34 ; Chronic fatigu e R53.82 ; Peripheral edema R60.9 ; Diarrhea, unspecified type R19.7 ; Non-intractable vomiting with nausea, unspecified vomiting type R11.2 ; BMI 45.0-49.9, adult Z68.42 and Chronic post- traumatic stress disorder (PTSD) F43.12 [place] [address] [address] Mar, Intestinal malabsorption, unspecified K9 0.9 ; Diarrhea, unspecified R19.7 ; Urinary urgency R39.15 ; Rectal bleeding K62.5 and Decreased urine output R34 [place] [address] [address] Mar, Decreased urine output R34 [place] [address] [address] Mar, Rectal bleeding K62.5 [place] [address] [address] Mar, Rectal bleeding K62.5 [place] [address] [address] Mar, Urinary urgency R39.15 [facility] [address] [address] Mar, Urinary urgency R39.15 [facility] [address] [address] Mar, Primary osteoarthritis of right knee M17 .11 and BMI 45.0-49.9, adult Z68.42 [facility] [address] [address] Mar, [facility] [address] [address] Feb, Left upper arm pain M79.622 [facility] [address] [address] Feb, [place] [address] [address] Jan, Acute pain of right knee M25.561 ; Right upper quadrant abdominal pain R10.11 and BMI 45.0-49.9, adult Z68.42 [facility] [address] [address] Jan, [facility] [address] [address] Jan, [facility] [address] [address] Dec, [facility] [address] [address] Dec, Intestinal malabsorption, unspecified K9 0.9 and Diarrhea, unspecified R19.7 [facility] [address] [address] Dec, [facility] [address] [address] Dec, Strep throat J02.0 ; Intestinal malabsor ption, unspecified K90.9 ; Diarrhea, unspecified R19.7 ; Postoperative seroma involving digestive system after non-digestive system procedure K91.873 ; Hyperlipidemia, mixed E78.2 and BMI 45.0-49.9, adult Z68.42 [facility] [id number] [place] [address] Dec, [facility] [id number] [place] [address] Dec, Nausea R11.0 [facility] [address] [address] Dec, [facility] [address] [facility] [id number] [place] [address] Dec, Sore throat J02.9 ; Strep th roat J02.0 and BMI 45.0- 49.9, adult Z68.42 [facility] [id number] [place] [address] Dec, [facility] [id number] [place] [address] Dec, [facility] [address] [address] Dec, [facility] [address] [address] Dec, [facility] [address] [address] Dec, [facility] [address] [address] Dec, [facility] [id number] [place] [address] Dec, [facility] [address] [address] Dec, [facility] [id number] [place] [address] Dec, Clostridium difficile colitis A04.72 ; I ntractable vomiting with nausea, unspecified vomiting type R11.2 and BMI 45.0-49.9, adult Z68.42 [place] [address] [address] Dec, [facility] [address] [address] Nov, [facility] [address] [address] Nov, [place] [address] [address] Nov, [facility] [address] [address] Nov, [facility] [place] [address] [place] [address] Nov, [place] [address] [address] Nov, Hyperlipidemia, mixed E78.2 [facility] [place] [address] [place] [address] Nov, Acute suppurative otitis med ia of right ear without spontaneous rupture of tympanic membrane, recurrence not specified H66.001 and BMI 45.0-49.9, adult Z68.42 [place] [address] [address] Nov, Hyperlipidemia, mixed E78.2 [place] [address] [address] Nov, [place] [address] [address] Nov, [place] [address] [address] Nov, Nodule of left lung R91.1 [place] [address] [address] Nov, Medicare annual wellness visit, initial Z00.00 [...] and Encounter for immunization Z23 [place] [address] [address] October, [place] [address] [address] October, Nodule of left lung R91.[address] [address] October, Nodule of left lung R91.1 [place] [address] [address] October, Recurrent major depressive disorder, in partial remission F33.41 ; Restless leg syndrome G25.81 ; Generalized social phobia F40.11 ; Chronic post- traumatic stress disorder (PTSD) F43.12 ; BMI 45.0-49.9, adult Z68.42 and Trichotillomania F63.3 [place] [address] [address] October, [place] [address] [address] Sep, Chronic fatigue R53.82 and BMI 45.0-49.9 , adult Z68.42 [place] [address] [address] Aug, [address] [address] Jul, Restless leg syndrome G25.81 and B12 def iciency E53.8 [place] [address] [address] Jul, [place] [address] [address] Jul, [place] [address] [address] Jun, [place] [address] [address] Jun, Fatigue, unspecified type R53.83 ; Histo ry of renal cell carcinoma Z85.528 ; Chronic pancreatitis K86.1 ; Restless leg syndrome G25.81 ; Dark urine R82.99 and BMI 45.0-49.9, adult Z68.42 [place] [address] [address] Jun, [place] [address] [address] Jun, [place] [address] [address] Jun, [place] [address] [address] Jun, [place] [address] [address] May, Chronic post-traumatic stress disorder ( PTSD) F43.12 ; Moderate episode of recurrent major depressive disorder F33.1 ; Trichotillomania F63.3 and Generalized social phobia F40.11 [place] [address] [address] May, [address] [address] May, Chronic post-traumatic stress disorder ( PTSD) F43.12 ; Moderate episode of recurrent major depressive disorder F33.1 ; Trichotillomania F63.3 and Generalized social phobia F40.11 [place] [address] [address] 07 May, 2017 Hyperlipidemia, mixed E78.2 ; Morbid (se nehemias) obesity due to excess calories E66.01 ; Chronic post-traumatic stress disorder (PTSD) F43.12 ; Moderate episode of recurrent major depressive disorder F33.1 ; Trichotillomania F63.3 and Generalized social phobia F40.11 [place] [address] [address] Apr, [place] [address] [address] Apr, Hyperlipidemia, mixed E78.2 ; Morbid (se nehemias) obesity due to excess calories E66.01 ; Chronic post-traumatic stress disorder (PTSD) F43.12 ; Moderate episode of recurrent major depressive disorder F33.1 ; Trichotillomania F63.3 and Generalized social phobia F40.11 [place] [address] [address] Apr, Trichotillomania F63.3 ; Generalized soc ial phobia F40.11 ; Chronic post-traumatic stress disorder (PTSD) F43.12 and Moderate episode of recurrent major depressive disorder F33.1 [place] [address] [address] 15 Apr, 2017 [place] [address] [address] Apr, [place] [address] [address] Mar, Moderate episode of recurrent major depr essive disorder F33.1 ; Trichotillomania F63.3 ; Chronic post-traumatic stress disorder (PTSD) F43.12 ; Generalized social phobia F40.11 and Restless leg syndrome G25.81 [place] [address] [address] Mar, [place] [address] [address] 17 Mar, 2017 [place] [address] [address] Feb, Left kidney mass N28.89 [place] [address] [address] Jan, [facility] [id number] [place] [address] Dec, Polydipsia R63.1 ; Chronic pancreatitis K86.1 and Fatigue, unspecified type R53.83 [facility] [id number] [place] [address] Nov, [facility] [address] [address] Nov, [facility] [address] [address] Nov, Headache around the eyes R51 [facility] [id number] [place] [address] Nov, [facility] [address] [address] October, STD exposure Z20.2 [facility] [address] [address] October, STD exposure Z20.2 [facility] [address] [address] October, Chronic post-traumatic stress disorder ( PTSD) F43.12 ; Generalized social phobia F40.11 ; Trichotillomania F63.3 and Restless leg syndrome G25.81 [facility] [id number] [place] [address] October, [facility] [id number] [place] [address] Sep, [facility] [address] [address] Aug, [facility] [address] [address] Aug, [facility] [address] [address] Aug, Neck mass R22.1 [facility] [address] [address] 03 Aug, 2016 Atelectasis J98.11 [place] [address] [address] 28 Jul, 2016 Hyperlipidemia, mixed E78.2 ; Atypical p neumonia J18.9 and Neck mass R22.1 [place] [address] [address] 15 Jul, 2016 Hemoptysis R04.2 [place] [address] [address] 08 Jul, 2016 Acute non-recurrent pansinusitis J01.40 ; Hemoptysis R04.2 ; Polydipsia R63.1 and Malaise R53.81 [facility] [place] [address] [address] May, Other viral agents as the ca use of diseases classified elsewhere B97.89 and Acute upper respiratory infection, unspecified J06.9 [facility] [place] [address] [address] [place] [id number] [place] [address] Mar, Nausea R11.0 [facility] [address] [address] 28 Dec, 2015 Hives L50.9 [place] [address] [address] 14 Dec, 2015 [facility] [place] [id number] [place] [address] 10 Dec, 2015 Cutaneous abscess of limb, u nspecified L02.419 ; Cellulitis of unspecified part of limb L03.119 ; Encounter for incision and drainage procedure Z01.89 and Encounter for recheck of abscess following i ncision and drainage Z09 [facility] [place] [address] [address] [place] [id number] [place] [address] 09 Dec, 2015 Abscess of leg, right L02.41 5 [place] [address] [address] 08 Dec, 2015 Cellulitis of unspecified part of limb L 03.119 and Cutaneous abscess of limb, unspecified L02.419 [place] [address] [address] Dec, [place] [address] [address] Dec, [facility] [place] [address] [address] [facility] [id number] [address] [place] [address] Aug, [place] [address] [address] Aug, [facility] [place] [address] [address] [place] [id number] [address] [place] [address] Jul, Pain in unspecified wrist M2 5.539 and Back pain, thoracic M54.6 [facility] [place] [address] [address] [place] [id number] [address] [place] [address] Jun, Strain of right wrist, initi al encounter S66.911A [place] [address] [address] Jun, Chronic pancreatitis, unspecified pancre atitis type K86.1 ; Hirsuties L68.0 ; Morbid (severe) obesity due to excess calories E66.01 ; Chronic pancreatitis K86.1 and Asthma J45.909 [place] [address] [address] May, [place] [address] [address] 09 May, 2015 Hyperlipidemia, mixed E78.2 and Muscle s pasm of back M62.830 [place] [address] [address] 30 Apr, 2015 [place] [address] [address] 16 Apr, 2015 Torticollis M43.6 [place] [address] [address] Apr, Right-sided thoracic back pain M54.6 [facility] [address] [address] Mar, Rash R21 [facility] [address] [address] Mar, [facility] [address] [address] Jan, [facility] [address] [address] Dec, [facility] [address] [address] Dec, Urinary frequency 788.41 and Nocturia mo re than twice per night 788.43 [facility] [address] [address] Nov, [facility] [address] [address] Nov, [facility] [address] [address] Nov, Abdominal pain 789.00 [facility] [address] [address] October, TDAP DX V06.1 [facility] [address] [address] October, [facility] [address] [address] October, Disturbance of skin sensation 782.0 ; Wr ist pain, right 719.43 ; Hyperlipidemia 272.4 and Skin lesion of face 709.9 [facility] [address] [address] Sep, [facility] [address] [address] Sep, [facility] [address] [address] 26 Aug, 2014 [facility] [address] [facility] [id number] [facility] [place] [address] 26 Aug, 2014 [facility] [address] [facility] [id number] [facility] [place] [address] Aug, [facility] [address] [id number] [place] [address] 23 Aug, 2014 [facility] [address] [facility] [id number] [place] [address] 16 Aug, 2014 [facility] [address] [facility] [id number] [facility] [place] [address] 16 Aug, 2014 [facility] [address] [id number] [place] [address] 14 Aug, 2014 [facility] [address] [id number] [place] [address] 14 Aug, 2014 [facility] [address] [id number] [place] [address] Aug, [facility] [address] [facility] [id number] [place] [address] Aug, [facility] [address] [id number] [place] [address] 04 Aug, 2014 [facility] [address] [id number] [place] [address] 04 Aug, 2014 [facility] [address] [id number] [place] [address] Aug, [facility] [address] [facility] [id number] [place] [address] Aug, [facility] [address] [id number] [place] [address] Jul, 2014 [facility] [address] [facility] [id number] [place] [address] Jul, 2014 [facility] [address] [id number] [place] [address] Jul, [facility] [address] [id number] [place] [address] Jul, [facility] [address] [id number] [place] [address] Jul, [facility] [address] [id number] [place] [address] Jul, [facility] [address] [id number] [place] [address] Jun, [facility] [address] [id number] [place] [address] Jun, [facility] [address] [id number] [place] [address] Jun, [facility] [address] [id number] [place] [address] Jun, [facility] [address] [id number] [place] [address] Jun, [facility] [address] [id number] [place] [address] Jun, [facility] [address] [id number] [place] [address] Jun, [facility] [address] [id number] [place] [address] Jun, [facility] [address] [id number] [place] [address] May, [facility] [address] [id number] [place] [address] May, [facility] [address] [id number] [place] [address] May, [facility] [address] [id number] [place] [address] May, [facility] [address] [id number] [place] [address] 15 May, 2014 [facility] [address] [id number] [place] [address] May, [facility] [address] [id number] [place] [address] May, [facility] [address] [id number] [place] [address] May, [facility] [address] [id number] [place] [address] May, [facility] [address] [id number] [place] [address] May, [facility] [address] [id number] [place] [address] May, [facility] [address] [id number] [place] [address] May, [facility] [address] [id number] [place] [address] Apr, [facility] [address] [id number] [place] [address] Apr, [facility] [address] [id number] [place] [address] Apr, [facility] [address] [id number] [place] [address] Apr, [facility] [address] [id number] [place] [address] Apr, [facility] [address] [id number] [place] [address] Apr, [facility] [address] [id number] [place] [address] Apr, [facility] [address] [id number] [place] [address] 14 Apr, 2014 [facility] [address] [id number] [place] [address] Apr, [facility] [address] [id number] [place] [address] Apr, [facility] [address] [id number] [place] [address] Apr, [facility] [address] [facility] [id number] [place] [address] Apr, [facility] [address] [facility] [id number] [place] [address] Mar, [facility] [address] [id number] [place] [address] Mar, [facility] [address] [id number] [place] [address] Mar, [facility] [address] [facility] [id number] [place] [address] Mar, [facility] [address] [id number] [place] [address] Feb, [facility] [address] [id number] [place] [address] Feb, [facility] [address] [id number] [place] [address] 05 Feb, 2014 [facility] [address] [id number] [place] [address] 05 Feb, 2014 [facility] [address] [id number] [place] [address] 05 Feb, 2014 [facility] [address] [id number] [place] [address] Feb, 2013 [facility] [address] [id number] [place] [address] Jan, [facility] [address] [id number] [place] [address] Jan, [facility] [address] [id number] [place] [address] Jan, [facility] [address] [id number] [place] [address] Jan, [facility] [address] [id number] [place] [address] Jan, [facility] [address] [id number] [place] [address] Jan, [facility] [address] [facility] [id number] [place] [address] Jan, [facility] [address] [facility] [id number] [place] [address] Jan, [facility] [address] [id number] [place] [address] Jan, [facility] [address] [facility] [id number] [place] [address] Jan, [facility] [address] [id number] [place] [address] Jan, [facility] [address] [id number] [place] [address] Jan, [facility] [address] [id number] [place] [address] Jan, [facility] [address] [id number] [place] [address] Jan, [facility] [address] [id number] [place] [address] Dec, [facility] [address] [id number] [place] [address] Dec, [facility] [address] [id number] [place] [address] Dec, [facility] [address] [id number] [place] [address] Dec, [facility] [address] [facility] [id number] [place] [address] Nov, [facility] [address] [id number] [place] [address] Nov, [facility] [address] [id number] [place] [address] Nov, [facility] [address] [id number] [place] [address] Nov, [facility] [address] [facility] [id number] [place] [address] Nov, [facility] [address] [id number] [place] [address] October, [facility] [address] [id number] [place] [address] October, [facility] [address] [id number] [place] [address] October, [facility] [address] [id number] [place] [address] October, [facility] [address] [id number] [place] [address] October, [facility] [address] [id number] [place] [address] October, [facility] [address] [id number] [place] [address] October, [facility] [address] [id number] [place] [address] October, [facility] [address] [id number] [place] [address] October, [facility] [address] [id number] [place] [address] October, [facility] [address] [id number] [place] [address] October, [facility] [address] [id number] [place] [address] October, [facility] [address] [id number] [place] [address] October, [facility] [address] [id number] [place] [address] October, [facility] [address] [id number] [place] [address] Sep, [facility] [address] [id number] [place] [address] 17 Sep, 2013 [facility] [address] [id number] [place] [address] 14 Sep, 2013 [facility] [address] [id number] [place] [address] 14 Sep, 2013 [facility] [address] [id number] [place] [address] 10 Sep, 2013 [facility] [address] [id number] [place] [address] Sep, [facility] [address] [id number] [place] [address] Sep, [facility] [address] [id number] [place] [address] Sep, [facility] [address] [id number] [place] [address] Sep, [facility] [address] [id number] [place] [address] Sep, [facility] [address] [id number] [place] [address] Sep, [facility] [address] [id number] [place] [address] Sep, [facility] [address] [id number] [place] [address] Sep, [facility] [address] [id number] [place] [address] Sep, [facility] [address] [id number] [place] [address] Sep, [facility] [address] [id number] [place] [address] Aug, [facility] [address] [id number] [place] [address] 29 Aug, 2013 [facility] [address] [id number] [place] [address] Aug, [facility] [address] [id number] [place] [address] Aug, [facility] [address] [id number] [place] [address] 10 Jul, 2013 [facility] [address] [id number] [place] [address] 06 Jul, 2013 [facility] [address] [id number] [place] [address] Jul, [facility] [address] [id number] [place] [address] Jul, [facility] [address] [id number] [place] [address] Jun, [facility] [address] [id number] [place] [address] 15 Jun, 2013 [facility] [address] [id number] [place] [address] Jun, [facility] [address] [id number] [place] [address] 15 Jun, 2013 [facility] [address] [id number] [place] [address] Jun, [facility] [address] [id number] [place] [address] Jun, [facility] [address] [id number] [place] [address] 08 Jun, 2013 [facility] [address] [id number] [place] [address] 08 Jun, 2013 [facility] [address] [id number] [place] [address] May, [facility] [address] [id number] [place] [address] May, [facility] [address] [id number] [place] [address] 18 May, 2013 [facility] [address] [id number] [place] [address] 18 May, 2012 [facility] [address] [facility] [id number] [facility] [place] [address] 17 May, 2013 [facility] [address] [facility] [id number] [facility] [place] [id number] 17 May, 2013 [facility] [address] [facility] [id number] [facility] [place] [address] 17 May, 2013 [facility] [address] [id number] [place] [address] 17 May, 2013 [facility] [address] [facility] [id number] [facility] [place] [address] 16 May, 2013 [facility] [address] [id number] [place] [address] 16 May, 2013 [facility] [address] [id number] [place] [address] 14 May, 2013 [facility] [address] [id number] [place] [address] 14 May, 2013 [facility] [address] [id number] [place] [address] 13 May, 2013 [facility] [address] [id number] [place] [address] 13 May, 2013 [facility] [address] [id number] [place] [address] 12 May, 2013 [facility] [address] [id number] [place] [address] 12 May, 2013 [facility] [address] [facility] [id number] [place] [address] 11 May, 2013 [facility] [address] [id number] [place] [address] 11 May, 2013 [facility] [address] [id number] [place] [address] 26 Apr, 2013 [facility] [address] [id number] [place] [address] Apr, [facility] [address] [id number] [place] [address] Apr, [facility] [address] [id number] [place] [address] Apr, [facility] [address] [id number] [place] [address] Aug, [facility] [address] [id number] [place] [address] Aug, [facility] [address] [id number] [place] [address] Aug, [facility] [address] [id number] [place] [address] Aug, [facility] [address] [id number] [place] [address] Jul, [facility] [address] [id number] [place] [address] Jun, [facility] [address] [id number] [place] [address] Jun, [facility] [address] [id number] [place] [address] Jun, [facility] [address] [id number] [place] [address] Jun, [facility] [address] [id number] [place] [address] May, [facility] [address] [id number] [place] [address] May, [facility] [address] [id number] [place] [address] May, [facility] [address] [place] [id number] [place] [address] May, [facility] [address] [id number] [place] [address] May, [facility] [address] [id number] [place] [address] May, [facility] [address] [id number] [place] [address] May, [facility] [address] [id number] [place] [address] Apr, [facility] [address] [id number] [place] [address] Apr, [facility] [address] [id number] [place] [address] Apr, [facility] [address] [id number] [place] [address] Apr, [facility] [address] [id number] [place] [address] Apr, [facility] [address] [id number] [place] [address] Apr, [facility] [address] [id number] [place] [address] Apr, [facility] [address] [id number] [place] [address] Mar, [facility] [address] [id number] [place] [address] Mar, [facility] [address] [id number] [place] [address] Mar, [facility] [address] [id number] [place] [address] Mar, [facility] [address] [id number] [place] [address] Mar, [facility] [address] [id number] [place] [address] Mar, [facility] [address] [id number] [place] [address] Mar, [facility] [address] [id number] [place] [address] Mar, [facility] [address] [id number] [place] [address] Mar, [facility] [address] [facility] [id number] [facility] [place] [address] Mar, [facility] [address] [id number] [place] [address] Mar, [facility] [address] [id number] [place] [address] Mar, [facility] [address] [id number] [place] [address] Feb, [facility] [address] [facility] [id number] [facility] [place] [address] Jan, [facility] [address] [id number] [place] [address] Jan, [facility] [address] [id number] [place] [address] Jan, [facility] [address] [id number] [place] [address] Jan, [facility] [address] [id number] [place] [address] Jan, [facility] [address] [id number] [place] [address] Dec, [facility] [address] [id number] [place] [address] Dec, [facility] [address] [id number] [place] [address] Nov, [facility] [address] [id number] [place] [address] Nov, [facility] [address] [id number] [place] [address] Nov, [facility] [address] [id number] [place] [address] October, [facility] [address] [id number] [place] [address] October, [facility] [address] [id number] [place] [address] October, [facility] [address] [id number] [place] [address] October, [facility] [address] [id number] [place] [address] 16 Oct, 2011 [facility] [address] [id number] [place] [address] October, [facility] [address] [id number] [place] [address] October, [facility] [address] [id number] [place] [address] 26 Sep, 2011 [facility] [address] [id number] [place] [address] 26 Sep, 2011 [facility] [address] [id number] [place] [address] 26 Sep, 2011 [facility] [address] [id number] [place] [address] 25 Sep, 2011 [facility] [address] [id number] [place] [address] 24 Sep, 2011 [facility] [address] [id number] [place] [address] 19 Sep, 2011 [facility] [address] [id number] [place] [address] 17 Sep, 2011 [facility] [address] [id number] [place] [address] 16 Sep, 2011 [facility] [address] [id number] [place] [address] 16 Sep, 2011 [facility] [address] [id number] [place] [address] 14 Sep, 2011 [facility] [address] [id number] [place] [address] 13 Sep, 2011 [facility] [address] [id number] [place] [address] 10 Sep, 2011 [facility] [address] [facility] [id number] [place] [address] Sep, [facility] [address] [facility] [id number] [facility] [place] [address] 27 Aug, 2011 [facility] [address] [id number] [place] [address] Aug, [facility] [address] [id number] [place] [address] 08 Aug, 2011 [facility] [address] [facility] [id number] [facility] [place] [address] 06 Aug, 2011 [facility] [address] [id number] [place] [address] 28 Jul, 2011 [facility] [address] [id number] [place] [address] 22 Jul, 2011 [facility] [address] [id number] [place] [address] 16 Jul, 2011 [facility] [address] [id number] [place] [address] 15 Jul, 2011 [facility] [address] [id number] [place] [address] 14 Jul, 2011 [facility] [address] [id number] [place] [address] 10 Jul, 2011 [facility] [address] [id number] [place] [address] Jun, [facility] [address] [id number] [place] [address] Jun, [facility] [address] [id number] [place] [address] Jun, [facility] [address] [id number] [place] [address] Jun, [facility] [address] [id number] [place] [address] Jun, [facility] [address] [id number] [place] [address] 27 May, 2011 [facility] [address] [id number] [place] [address] May, [facility] [id number] [place] [address] 14 May, 2011 [facility] [id number] [place] [address] 14 May, 2011 [facility] [address] [id number] [place] [address] May, [facility] [address] [facility] [id number] [place] [address] May, [facility] [address] [id number] [place] [address] 05 May, 2011 [facility] [id number] [place] [address] 15 Apr, 2011 [facility] [address] [facility] [id number] [place] [address] 15 Apr, 2011 [facility] [address] [id number] [place] [address] Apr, [facility] [address] [id number] [place] [address] Apr, [facility] [address] [facility] [id number] [place] [address] Apr, [facility] [address] [facility] [id number] [place] [address] Apr, [facility] [address] [id number] [place] [address] Mar, [facility] [id number] [place] [address] Mar, [facility] [address] [id number] [place] [address] Mar, [facility] [address] [id number] [place] [address] Mar, [facility] [address] [facility] [id number] [place] [address] Jan, [facility] [id number] [place] [address] 19 Dec, 2010 [facility] [address] [id number] [place] [address] Dec, [facility] [address] [id number] [place] [address] October, [facility] [address] [id number] [place] [address] Sep, [facility] [address] [id number] [place] [address] Sep, [facility] [address] [facility] [id number] [place] [address] 17 Jul, 2010 [facility] [id number] [place] [address] Jul, [facility] [address] [id number] [place] [address] May, [facility] [address] [id number] [place] [address] May, [facility] [address] [id number] [place] [address] May, [facility] [address] [id number] [place] [address] May, [facility] [address] [id number] [place] [address] Apr, [facility] [address] [id number] [place] [address] Apr, [facility] [address] [facility] [id number] [place] [address] Apr, [facility] [address] [id number] [place] [address] Apr, [facility] [address] [facility] [id number] [place] [address] Apr, [facility] [address] [id number] [place] [address] Mar, [facility] [address] [facility] [id number] [place] [address] 14 Mar, 2010 [facility] [address] [id number] [place] [address] 13 Mar, 2010 [facility] [address] [facility] [id number] [place] [address] Mar, [facility] [address] [facility] [id number] [place] [address] Jan, [facility] [address] [id number] [place] [address] 15 Dec, 2009 [facility] [address] [id number] [place] [address] Sep, [facility] [address] [id number] [place] [address] 08 May, 2009 [facility] [address] [facility] [id number] [place] [address] May, [facility] [address] [id number] [place] [address] May, [facility] [address] [facility] [id number] [place] [address] Apr, [facility] [address] [facility] [id number] [place] [address] 17 Apr, 2009 [facility] [address] [facility] [id number] [place] [address] 10 Apr, 2009 [facility] [address] [facility] [id number] [place] [address] 10 Apr, 2009 [facility] [address] [facility] [id number] [place] [address] 09 Apr, 2009 [facility] [address] [id number] [place] [address] 15 Mar, 2009 [facility] [address] [facility] [id number] [place] [address] Mar, [facility] [address] [facility] [id number] [place] [address] Jul, IMMUNIZATIONS No Known Immunizations SOCIAL HISTORY Never Assessed REASON FOR VISIT PLAN OF CARE VITAL SIGNS Height 62 in 2013-09-28 Weight 259.5 lbs 2013-09-28 Temperature 97.6 degrees Fahrenheit 2013-09-28 Heart Rate 84 bpm 2013-09-28 Respiratory Rate 18 2013-09-28 Blood pressure systolic 114 mmHg 2013-09-28 Blood pressure diastolic 74 mmHg 2013-09-28 MEDICATIONS Unknown Medications RESULTS No Results PROCEDURES [...] and replaced VC 10/2018 Hospitalization History Cellulitis-[facility] Hospitalization History [facility] [place]- Abd pain 03/07/2017 Hospitalization History [facility] [place]- Abd pain 03/14/2017 Hospitalization History [facility] [place]- No bowel movement, rash 04/13/2017 Hospitalization History [facility] [place]- Abd pain r/ t kidney surgery on 04/10/17 04/17/2017 Hospitalization History [facility] [place]- Abd pain r/ t kidney surgery on 04/10/17 04/18/2017 Hospitalization History [facility] [place]- Lower abd pain 04/17 Hospitalization History [facility]- Cannot urinate 05/17 Hospitalization History [facility]- Pancreatitis Sx Hospitalization History [facility] [place]- Stomach pain 2017 Hospitalization History [facility]- Left side pain 07/19 Hospitalization History [facility]- Incision site infec tion 08/30/2017 Hospitalization History [facility]- Post Op Serom a/Hematoma Left Abdomen. Discharged 09/04/17- Dr Daniel 09/02/2017 Hospitalization History [facility]- Right shoulder and back pain 10/22/2017 Hospitalization History [facility] [place]- Shoulder/Back pain 11/11/2017 Hospitalization History [facility]- Right shoulder blad e pain 12/04/2017 Hospitalization History [facility]- C-Diff 12/13/2017 Hospitalization History C diff et MRSA 12/27/[address] [facility] Bowel Obstruction 10/2018 Hospitalization History [facility]- Abdominal pain and nausea 01/08/2019
--- OUTSIDE RECORDS SUMMARY | 2019-10-17 05:10 | XMS REPORT ---
Author Author Janeth WADE [facility] Address [address] [place] [address] Care Team Providers Care Call Center Consultant Name Role Phone SHERI ANSON Unavailable PROBLEMS Type Condition ICD9-CM Code [id number] Code Onset Dates Condition S tatus SNOMED Code Problem History of renal cell carcinoma Z85.528 Active 783758274 Problem Hepatic steatosis K76.0 Active 19 6302574 Problem Nodule of left lung R91.1 Active 795176854 Problem Right carpal tunnel syndrome G56.01 A ctive [id number] Problem Mild obstructive sleep apnea G47.33 A ctive 54715128 Problem Chronic fatigue R53.82 Active 8422 9001 Problem Moderate episode of recurrent major depressive disorder F33.1 Active 764873220 Problem Chronic pancreatitis K86.1 Active 780131150 Problem Chronic tension-type headache, intractable G44.221 Active 234439437 Problem Polydipsia R63.1 Active 22514261 Problem Asthma J45.909 Active 517076245 Problem Chronic post-traumatic stress disorder (PTSD) F43. 12 Active 792705410 Problem Atelectasis J98.11 Active 15634195 Problem Trichotillomania F63.3 Active 171 90310 Problem Restless leg syndrome G25.81 Active 95018474 Problem Intestinal malabsorption, unspecified K90.9 Active 83315509 Problem Primary osteoarthritis of right knee M17.11 Active 151162856391952 Problem Menopausal symptoms N95.1 Active 27523374 Problem Generalized social phobia F40.11 Acti ve 06991364 Problem FH: polycystic ovary Z84.2 Active 526381328 Problem Vitamin D deficiency E55.9 Active 30151176 Problem Hirsuties L68.0 Active 864579428 Problem Hyperlipidemia, mixed E78.2 Active 728709638 Problem Social phobia, unspecified F40.10 Act yolanda 04908208 Problem Morbid obesity E66.01 Active 86149 6002 Problem Conflict between patient and family Z63.9 Active 12131213 Problem BMI 45.0-49.9, adult Z68.42 Active 778073762 ALLERGIES No Information ENCOUNTERS Encounter Location Date Diagnosis [facility] [address] [address] Jul, [facility] [address] [address] Jul, [facility] [address] [address] Jul, Chronic fatigue R53.82 ; Restless leg sy ndrome G25.81 ; Vitamin D deficiency E55.9 and Vitamin B deficiency E53.9 [place] [address] [address] Jul, Generalized social phobia F40.11 ; Confl ict between patient and family Z63.9 ; Trichotillomania F63.3 ; Chronic post-traumatic stress disorder (PTSD) F43.12 and BMI 45.0-49.9, adult Z68.42 [place] [address] [address] Jun, [place] [address] [address] Jun, [facility] [address] [address] Jun, [facility] [address] [address] May, [place] [address] [place] [address] May, [facility] [address] [address] May, [facility] [address] [address] May, [facility] [address] [address] May, [facility] [id number] [place] [address] Apr, [facility] [id number] [place] [address] Apr, [facility] [id number] [place] [address] Apr, [facility] [id number] [place] [address] Mar, Cervical radiculopathy M54.12 [facility] [id number] [place] [address] Mar, [facility] [id number] [place] [address] Mar, [facility] [id number] [place] [address] Mar, [facility] [id number] [place] [address] Mar, [facility] [id number] [place] [address] Mar, [facility] [id number] [place] [address] Mar, [facility] [id number] [place] [address] Mar, [facility] [id number] [place] [address] Feb, Chronic cough R05 [facility] [id number] [place] [address] Feb, [facility] [id number] [place] [address] Feb, [facility] [id number] [place] [address] Feb, Cervical radiculopathy M54.12 [facility] [id number] [place] [address] Feb, Pain of left thumb M79.645 [place] [address] [address] Feb, [place] [address] [address] Feb, [place] [address] [address] Feb, [place] [address] [address] Feb, Cough present for greater than 3 weeks R 05 [place] [address] [address] Feb, Cough present for greater than 3 weeks R 05 ; Feels sick R68.89 ; History of renal cell carcinoma Z85.528 and Morbid obesity E66.01 [place] [address] [address] Jan, [facility] [address] [id number] Jan, Oral health maintenance status requiring routine preventive dental care K08.9 ; Dental examination Z01.20 and Caries K02.9 [place] [address] [address] Jan, Dysuria R30.0 [place] [address] [address] Jan, Dysuria R30.0 [place] [address] [address] Jan, Viral pharyngitis J02.9 and Morbid obesi ty E66.01 [place] [address] [address] Jan, [place] [address] [address] Jan, Left sided abdominal pain R10.9 ; Other acute postprocedural pain G89.18 ; History of renal cell carcinoma Z85.528 and Morbid obesity E66.01 [place] [address] [address] Dec, Dental examination Z01.20 [place] [address] [address] Dec, Elevated LFTs R94.[address] [address] Dec, Encounter for Medicare annual wellness e xam Z00.00 ; Chronic tension- type headache, intractable G44.221 ; Morbid (severe) obesity due to excess calories E66.01 ; Hyperlipidemia, mixed E78.2 ; Chronic pancreatitis K86.1 ; Asthma J45.909 ; Moderate episode of recurrent major depressive disorder F33.1 ; Chronic fatigue R53.82 and Social phobia, unspecified F40.[address] [address] Dec, [address] [address] Dec, [address] [address] Dec, [address] [address] Dec, Hyperlipidemia, mixed E78.2 ; History of renal cell carcinoma Z85.528 and Restless leg syndrome G25.[address] [address] Dec, Hyperlipidemia, mixed E78.2 ; Chronic pa ncreatitis K86.1 ; Restless leg syndrome G25.81 ; Nodule of left lung R91.1 ; History of renal cell carcinoma Z85.528 ; Leg swelling M79.89 ; Morbid obesity E66.01 and Observed sleep apnea G47.30 [place] [address] [address] Nov, [address] [address] Nov, [facility] [address] [id number] [place] [address] Nov, [facility] [address] [facility] [id number] [address] [place] [address] Nov, Other acute postprocedural p ain G89.18 and Unspecified abdominal pain R10.9 [facility] [id number] [place] [address] October, [facility] [id number] [place] [address] October, Social phobia, generalized F40.11 ; Conf lict between patient and family Z63.9 and Morbid obesity E66.01 [facility] [address] [facility] [place] [address] October, [facility] [id number] [place] [address] October, [facility] [address] [id number] [place] [address] October, [facility] [address] [facility] [place] [address] October, [place] [address] [place] [address] October, [facility] [address] [facility] [place] [address] October, [address] [place] [address] October, [facility] [address] [facility] [place] [address] October, Morbid obesity E66.01 ; Routine gynecolo gical examination Z01.419 and Menopausal symptoms N95.1 [facility] [address] [facility] [place] [address] October, [address] [place] [address] Sep, [facility] [address] [facility] [place] [address] Sep, [facility] [id number] [place] [address] Sep, [facility] [id number] [place] [address] Sep, [facility] [address] [id number] [place] [address] Sep, Lower extremity edema R60.0 [facility] [address] [id number] [place] [address] Sep, [facility] [address] [facility] [id number] [address] [place] [address] Sep, Lower extremity edema R60.0 and Morbid obesity E66.01 [facility] [id number] [place] [address] Sep, [facility] [id number] [place] [address] Sep, [facility] [id number] [place] [address] Aug, [facility] [id number] [place] [address] Aug, Obesities, morbid E66.01 and Morbid obes ity E66.01 [facility] [id number] [place] [address] Aug, [facility] [address] [place] [address] Jul, [facility] [address] [place] [id number] [place] [address] Jul, [facility] [id number] [place] [address] Jul, [facility] [address] [address] Jul, Numbness of right hand R20.0 [facility] [address] [address] Jul, [facility] [address] [address] Jul, Numbness of right hand R20.0 [facility] [address] [address] Jul, [facility] [address] [address] Jul, [facility] [address] [address] Jul, Right-sided thoracic back pain M54.6 [facility] [address] [address] Jul, [facility] [address] [address] Jul, [facility] [address] [address] Jul, [facility] [address] [address] Jul, [facility] [address] [address] Jun, [facility] [address] [address] Jun, Acute pain of right shoulder M25.511 ; N umbness of right hand R20.0 and Trapezius muscle spasm M62.838 [facility] [address] [address] Jun, [facility] [address] [address] Jun, [facility] [address] [address] 22 Gerard, 2019 Cough R05 ; BMI 50.0-59.9, adult Z68.43 and Morbid obesity E66.01 [place] [address] [address] Jun, [place] [address] [address] 14 Jun, 2018 [facility] [address] [place] [address] 13 Jun, 2018 BMI 45.0-49.9, adult Z68.42 and Acute non-recurrent maxillary sinusitis J01.00 [facility] [address] [place] [id number] [place] [address] 09 Jun, 2018 Acute sinusitis J01.90 ; Dys uria R30.0 and BMI 45.0- 49.9, adult Z68.42 [place] [address] [address] 07 Jun, 2018 [place] [address] [address] Jun, [place] [address] [address] May, [place] [address] [address] May, [place] [address] [address] May, [place] [address] [address] May, [place] [address] [address] May, [place] [address] [address] Apr, Generalized social phobia F40.11 ; Trich otillomania F63.3 ; Chronic post-traumatic stress disorder (PTSD) F43.12 and BMI 45.0-49.9, adult Z68.42 [place] [address] [address] Apr, [place] [address] [address] Apr, Chronic tension-type headache, intractab le G44.221 [place] [address] [address] Apr, [facility] [address] [facility] [id number] [address] [address] Mar, [facility] [address] [place] [id number] [address] Mar, BMI 45.0-49.9, adult Z68.42 and Pimples R23.8 [place] [address] [address] Mar, [place] [address] [address] Mar, [place] [address] [address] Mar, Decreased urination R34 ; Chronic fatigu e R53.82 ; Peripheral edema R60.9 ; Diarrhea, unspecified type R19.7 ; Non-intractable vomiting with nausea, unspecified vomiting type R11.2 ; BMI 45.0-49.9, adult Z68.42 and Chronic post- traumatic stress disorder (PTSD) F43.12 [place] [address] [address] Mar, Intestinal malabsorption, unspecified K9 0.9 ; Diarrhea, unspecified R19.7 ; Urinary urgency R39.15 ; Rectal bleeding K62.5 and Decreased urine output R34 [place] [address] [address] Mar, Decreased urine output R34 [place] [address] [address] Mar, Rectal bleeding K62.5 [address] [place] [address] Mar, Rectal bleeding K62.5 [place] [address] [address] Mar, Urinary urgency R39.15 [facility] [address] [address] Mar, Urinary urgency R39.15 [facility] [address] [address] Mar, Primary osteoarthritis of right knee M17 .11 and BMI 45.0-49.9, adult Z68.42 [place] [address] [address] Mar, [facility] [address] [address] Feb, Left upper arm pain M79.622 [place] [address] [address] Feb, [facility] [address] [address] Jan, Acute pain of right knee M25.561 ; Right upper quadrant abdominal pain R10.11 and BMI 45.0-49.9, adult Z68.42 [place] [address] [address] Jan, [facility] [address] [address] Jan, [facility] [address] [address] Dec, [facility] [address] [address] Dec, Intestinal malabsorption, unspecified K9 0.9 and Diarrhea, unspecified R19.7 [facility] [address] [address] Dec, [facility] [address] [address] Dec, Strep throat J02.0 ; Intestinal malabsor ption, unspecified K90.9 ; Diarrhea, unspecified R19.7 ; Postoperative seroma involving digestive system after non-digestive system procedure K91.873 ; Hyperlipidemia, mixed E78.2 and BMI 45.0-49.9, adult Z68.42 [facility] [id number] [place] [address] Dec, [facility] [address] [address] Dec, Nausea R11.0 [facility] [address] [address] Dec, [facility] [address] [facility] [id number] [address] [place] [address] Dec, Sore throat J02.9 ; Strep th roat J02.0 and BMI 45.0- 49.9, adult Z68.42 [facility] [id number] [place] [address] Dec, [facility] [address] [place] [id number] [place] [address] Dec, [facility] [id number] [place] [address] Dec, [facility] [id number] [place] [address] Dec, [facility] [address] [address] Dec, [facility] [id number] [place] [address] Dec, [facility] [id number] [place] [address] Dec, [facility] [id number] [place] [address] Dec, [facility] [address] [address] Dec, Clostridium difficile colitis A04.72 ; I ntractable vomiting with nausea, unspecified vomiting type R11.2 and BMI 45.0-49.9, adult Z68.42 [place] [address] [address] Dec, [facility] [address] [address] Nov, [place] [address] [address] Nov, [place] [address] [address] Nov, [place] [address] [address] Nov, [facility] [place] [address] [place] [address] Nov, [place] [address] [address] Nov, Hyperlipidemia, mixed E78.2 [facility] [place] [address] [address] Nov, Acute suppurative otitis med ia of right ear without spontaneous rupture of tympanic membrane, recurrence not specified H66.001 and BMI 45.0-49.9, adult Z68.42 [place] [address] [address] Nov, Hyperlipidemia, mixed E78.2 [place] [address] [address] Nov, [place] [address] [address] Nov, [place] [address] [address] 04 Nov, 2017 Nodule of left lung R91.1 [place] [address] [address] Nov, Medicare annual wellness visit, initial Z00.00 [...] adult Z68.42 and Encounter for immunization Z23 [address] [address] October, [address] [address] October, Nodule of left lung R91.[address] [address] October, Nodule of left lung R91.1 [place] [address] [address] October, Recurrent major depressive disorder, in partial remission F33.41 ; Restless leg syndrome G25.81 ; Generalized social phobia F40.11 ; Chronic post- traumatic stress disorder (PTSD) F43.12 ; BMI 45.0-49.9, adult Z68.42 and Trichotillomania F63.3 [place] [address] [address] October, [address] [address] Sep, Chronic fatigue R53.82 and BMI 45.0-49.9 , adult Z68.42 [place] [address] [address] Aug, [place] [address] [address] Jul, Restless leg syndrome G25.81 and B12 def iciency E53.8 [place] [address] [address] Jul, [place] [address] [address] Jul, [place] [address] [address] Jun, [place] [address] [address] Jun, Fatigue, unspecified type R53.83 ; Histo ry of renal cell carcinoma Z85.528 ; Chronic pancreatitis K86.1 ; Restless leg syndrome G25.81 ; Dark urine R82.99 and BMI 45.0-49.9, adult Z68.42 [place] [address] [address] Jun, [place] [address] [address] Jun, [place] [address] [address] Jun, [place] [address] [address] Jun, [place] [address] [address] May, Chronic post-traumatic stress disorder ( PTSD) F43.12 ; Moderate episode of recurrent major depressive disorder F33.1 ; Trichotillomania F63.3 and Generalized social phobia F40.11 [place] [address] [address] May, [address] [address] May, Chronic post-traumatic stress disorder ( PTSD) F43.12 ; Moderate episode of recurrent major depressive disorder F33.1 ; Trichotillomania F63.3 and Generalized social phobia F40.11 [place] [address] [address] May, Hyperlipidemia, mixed E78.2 ; Morbid (se nehemias) obesity due to excess calories E66.01 ; Chronic post-traumatic stress disorder (PTSD) F43.12 ; Moderate episode of recurrent major depressive disorder F33.1 ; Trichotillomania F63.3 and Generalized social phobia F40.11 [place] [address] [address] Apr, [place] [address] [address] Apr, Hyperlipidemia, mixed E78.2 ; Morbid (se nehemias) obesity due to excess calories E66.01 ; Chronic post-traumatic stress disorder (PTSD) F43.12 ; Moderate episode of recurrent major depressive disorder F33.1 ; Trichotillomania F63.3 and Generalized social phobia F40.11 [place] [address] [address] Apr, Trichotillomania F63.3 ; Generalized soc ial phobia F40.11 ; Chronic post-traumatic stress disorder (PTSD) F43.12 and Moderate episode of recurrent major depressive disorder F33.1 [place] [address] [address] Apr, [place] [address] [address] Apr, [place] [address] [address] Mar, Moderate episode of recurrent major depr essive disorder F33.1 ; Trichotillomania F63.3 ; Chronic post-traumatic stress disorder (PTSD) F43.12 ; Generalized social phobia F40.11 and Restless leg syndrome G25.81 [place] [address] [address] Mar, [place] [address] [address] Mar, [place] [address] [address] Feb, Left kidney mass N28.89 [facility] [address] [address] Jan, [facility] [address] [address] Dec, Polydipsia R63.1 ; Chronic pancreatitis K86.1 and Fatigue, unspecified type R53.83 [facility] [address] [address] Nov, [facility] [address] [address] Nov, [facility] [address] [address] Nov, Headache around the eyes R51 [address] [address] Nov, [facility] [address] [address] October, STD exposure Z20.2 [place] [address] [address] October, STD exposure Z20.2 [place] [address] [address] October, Chronic post-traumatic stress disorder ( PTSD) F43.12 ; Generalized social phobia F40.11 ; Trichotillomania F63.3 and Restless leg syndrome G25.81 [facility] [address] [address] October, [facility] [address] [address] Sep, [facility] [address] [address] Aug, [facility] [address] [address] Aug, [place] [address] [address] 08 Aug, 2016 Neck mass R22.1 [place] [address] [address] 03 Aug, 2016 Atelectasis J98.11 [place] [address] [address] 28 Jul, 2016 Hyperlipidemia, mixed E78.2 ; Atypical p neumonia J18.9 and Neck mass R22.1 [place] [address] [address] 15 Jul, 2016 Hemoptysis R04.2 [place] [address] [address] 08 Jul, 2016 Acute non-recurrent pansinusitis J01.40 ; Hemoptysis R04.2 ; Polydipsia R63.1 and Malaise R53.81 [facility] [place] [address] [address] May, Other viral agents as the ca use of diseases classified elsewhere B97.89 and Acute upper respiratory infection, unspecified J06.9 [facility] [address] [address] Mar, Nausea R11.0 [facility] [address] [address] Dec, Hives L50.9 [place] [address] [address] 14 Dec, 2015 [facility] [address] [place], [place] [id number] [address] [place] [address] 10 Dec, 2016 Cutaneous abscess of limb, u nspecified L02.419 ; Cellulitis of unspecified part of limb L03.119 ; Encounter for incision and drainage procedure Z01.89 and Encounter for recheck of abscess following i ncision and drainage Z09 [facility] [address] [place], [place] [id number] [address] [place] [address] Dec, Abscess of leg, right L02.41 5 [place] [address] [address] 08 Dec, 2015 Cellulitis of unspecified part of limb L 03.119 and Cutaneous abscess of limb, unspecified L02.419 [place] [address] [address] Dec, [place] [address] [address] Dec, [facility] [place] [address] [address] [facility] [id number] [address] [place] [address] Aug, [place] [address] [address] Aug, [facility] [place] [id number] [address] [place] [address] Jul, Pain in unspecified wrist M2 5.539 and Back pain, thoracic M54.6 [facility] [place] [id number] [address] [place] [address] Jun, Strain of right wrist, initi al encounter S66.911A [place] [address] [address] Jun, Chronic pancreatitis, unspecified pancre atitis type K86.1 ; Hirsuties L68.0 ; Morbid (severe) obesity due to excess calories E66.01 ; Chronic pancreatitis K86.1 and Asthma J45.909 [place] [address] [address] May, [place] [address] [address] May, Hyperlipidemia, mixed E78.2 and Muscle s pasm of back M62.830 [place] [address] [address] Apr, [place] [address] [address] Apr, Torticollis M43.6 [facility] [address] [address] Apr, Right-sided thoracic back pain M54.6 [facility] [address] [address] Mar, Rash R21 [facility] [address] [address] Mar, [facility] [address] [address] Jan, [place] [address] [address] Dec, [facility] [address] [address] Dec, Urinary frequency 788.41 and Nocturia mo re than twice per night 788.43 [facility] [address] [address] Nov, [facility] [address] [address] Nov, [facility] [address] [address] Nov, Abdominal pain 789.00 [place] [address] [address] October, TDAP DX V06.1 [facility] [address] [address] October, [facility] [address] [address] October, Disturbance of skin sensation 782.0 ; Wr ist pain, right 719.43 ; Hyperlipidemia 272.4 and Skin lesion of face 709.9 [facility] [address] [address] Sep, [facility] [address] [facility] [id number] [facility] [address] 13 Sep, 2014 [facility] [address] [facility] [id number] [place] [address] 26 Aug, 2014 [facility] [address] [facility] [id number] [place] [address] 26 Aug, 2014 [facility] [address] [id number] [place] [address] Aug, [facility] [address] [facility] [id number] [place] [address] 23 Aug, 2014 [facility] [address] [facility] [id number] [place] [address] 16 Aug, 2014 [facility] [address] [id number] [place] [address] 16 Aug, 2014 [facility] [address] [id number] [place] [address] 14 Aug, 2014 [facility] [address] [id number] [place] [address] 14 Aug, 2014 [facility] [address] [id number] [place] [address] Aug, [facility] [address] [id number] [place] [address] Aug, [facility] [address] [id number] [place] [address] Aug, [facility] [address] [id number] [place] [address] 04 Aug, 2014 [facility] [address] [facility] [id number] [place] [address] Aug, [facility] [address] [id number] [place] [address] Aug, [facility] [address] [id number] [place] [address] Jul, [facility] [address] [id number] [place] [address] Jul, [facility] [address] [facility] [id number] [place] [address] Jul, [facility] [address] [facility] [id number] [place] [address] Jul, [facility] [address] [id number] [place] [address] Jul, [facility] [address] [id number] [place] [address] Jul, [facility] [address] [facility] [id number] [place] [address] Jun, [facility] [address] [id number] [place] [address] Jun, [facility] [address] [id number] [place] [address] Jun, [facility] [address] [id number] [place] [address] Jun, [facility] [address] [id number] [place] [address] Jun, [facility] [address] [id number] [place] [address] Jun, [facility] [address] [id number] [place] [address] Jun, [facility] [address] [id number] [place] [address] Jun, [facility] [address] [id number] [place] [address] May, [facility] [address] [id number] [place] [address] May, [facility] [address] [id number] [place] [address] May, [facility] [address] [id number] [place] [address] May, [facility] [address] [id number] [place] [address] 15 May, 2014 [facility] [address] [id number] [place] [address] May, [facility] [address] [id number] [place] [address] May, [facility] [address] [id number] [place] [address] May, [facility] [address] [id number] [place] [address] May, [facility] [address] [id number] [place] [address] May, [facility] [address] [id number] [place] [address] May, [facility] [address] [id number] [place] [address] May, [facility] [address] [id number] [place] [address] Apr, [facility] [address] [id number] [place] [address] Apr, [facility] [address] [id number] [place] [address] Apr, [facility] [address] [id number] [place] [address] Apr, [facility] [address] [id number] [place] [address] Apr, [facility] [address] [id number] [place] [address] Apr, [facility] [address] [place] [id number] [place] [address] Apr, [facility] [address] [id number] [place] [address] Apr, [facility] [address] [id number] [place] [address] Apr, [facility] [address] [facility] [id number] [place] [address] Apr, [facility] [address] [id number] [place] [address] Apr, [facility] [address] [id number] [place] [address] Apr, [facility] [address] [id number] [place] [address] Mar, [facility] [address] [id number] [place] [address] Mar, [facility] [address] [id number] [place] [address] Mar, [facility] [address] [id number] [place] [address] Mar, [facility] [address] [id number] [place] [address] Feb, [facility] [address] [id number] [place] [address] Feb, 2013 [facility] [address] [id number] [place] [address] 05 Feb, 2013 [facility] [address] [id number] [place] [address] 05 Feb, 2013 [facility] [address] [id number] [place] [address] 05 Feb, 2013 [facility] [address] [id number] [place] [address] 05 Feb, 2013 [facility] [address] [id number] [place] [address] Jan, [facility] [address] [id number] [place] [address] Jan, [facility] [address] [id number] [place] [address] Jan, [facility] [address] [id number] [place] [address] Jan, [facility] [address] [id number] [facility] [address] Jan, [facility] [address] [facility] [id number] [facility] [address] Jan, [facility] [address] [id number] [facility] [address] Jan, [facility] [address] [facility] [id number] [facility] [address] Jan, [facility] [address] [facility] [id number] [facility] [address] Jan, [facility] [address] [facility] [id number] [facility] [address] Jan, [facility] [address] [id number] [place] [address] Jan, [facility] [address] [id number] [facility] [address] Jan, [facility] [address] [facility] [id number] [place] [address] Jan, [facility] [address] [id number] [facility] [address] Jan, [facility] [address] [id number] [place] [address] Dec, [facility] [address] [id number] [place] [address] Dec, [facility] [address] [facility] [id number] [facility] [address] Dec, [facility] [address] [facility] [id number] [place] [address] Dec, [facility] [address] [facility] [id number] [place] [address] Nov, [facility] [address] [id number] [place] [address] Nov, [facility] [address] [id number] [place] [address] Nov, [facility] [address] [id number] [place] [address] Nov, [facility] [address] [id number] [place] [address] Nov, [facility] [address] [id number] [place] [address] October, [facility] [address] [id number] [place] [address] October, [facility] [address] [id number] [place] [address] October, [facility] [address] [id number] [place] [address] October, [facility] [address] [id number] [place] [address] October, [facility] [address] [id number] [place] [address] October, [facility] [address] [id number] [place] [address] October, [facility] [address] [id number] [place] [address] October, [facility] [address] [id number] [place] [address] October, [facility] [address] [id number] [place] [address] October, [facility] [address] [id number] [place] [address] October, [facility] [address] [id number] [place] [address] October, [facility] [address] [id number] [place] [address] October, [facility] [address] [id number] [place] [address] October, [facility] [address] [id number] [place] [address] Sep, [facility] [address] [id number] [place] [address] Sep, [facility] [address] [id number] [place] [address] Sep, [facility] [address] [id number] [place] [address] Sep, [facility] [address] [facility] [id number] [place] [address] Sep, [facility] [address] [id number] [place] [address] Sep, [facility] [address] [id number] [place] [address] Sep, [facility] [address] [id number] [place] [address] Sep, [facility] [address] [id number] [place] [address] Sep, [facility] [address] [id number] [place] [address] Sep, [facility] [address] [id number] [place] [address] Sep, [facility] [address] [id number] [place] [address] Sep, [facility] [address] [id number] [place] [address] Sep, [facility] [address] [facility] [id number] [place] [address] Sep, [facility] [address] [id number] [place] [address] Sep, [facility] [address] [id number] [place] [address] Aug, [facility] [address] [id number] [place] [address] Aug, [facility] [address] [facility] [id number] [facility] [address] Aug, [facility] [address] [id number] [facility] [address] Aug, [facility] [address] [id number] [place] [address] Jul, [facility] [address] [id number] [facility] [address] Jul, [facility] [address] [id number] [facility] [address] Jul, [facility] [address] [id number] [place] [address] Jul, [facility] [address] [id number] [place] [address] Jun, [facility] [address] [id number] [place] [address] Jun, [facility] [address] [id number] [place] [address] Jun, [facility] [address] [id number] [place] [address] Jun, [facility] [address] [id number] [place] [address] Jun, [facility] [address] [id number] [place] [address] Jun, [facility] [address] [id number] [place] [address] Jun, [facility] [address] [id number] [place] [address] Jun, [facility] [address] [id number] [place] [address] May, [facility] [address] [id number] [place] [address] May, [facility] [address] [id number] [place] [address] 18 May, 2012 [facility] [address] [id number] [place] [address] 18 May, 2012 [facility] [address] [id number] [place] [address] 17 May, 2012 [facility] [address] [facility] [id number] [place] [id number] 17 May, 2012 [facility] [address] [id number] [place] [address] 17 May, 2013 [facility] [address] [id number] [place] [address] 17 May, 2013 [facility] [address] [id number] [place] [address] 16 May, 2013 [facility] [address] [id number] [place] [address] 16 May, 2013 [facility] [address] [id number] [place] [address] 14 May, 2013 [facility] [address] [id number] [place] [address] 14 May, 2013 [facility] [address] [id number] [place] [address] 13 May, 2013 [facility] [address] [id number] [place] [address] 13 May, 2013 [facility] [address] [id number] [place] [address] 12 May, 2013 [facility] [address] [id number] [place] [address] 12 May, 2013 [facility] [address] [id number] [place] [address] 11 May, 2013 [facility] [address] [id number] [place] [address] 11 May, 2013 [facility] [address] [id number] [place] [address] Apr, [facility] [address] [id number] [place] [address] Apr, [facility] [address] [id number] [place] [address] Apr, [facility] [address] [id number] [place] [address] Apr, [facility] [address] [id number] [place] [address] Aug, [facility] [address] [id number] [place] [address] Aug, [facility] [address] [id number] [place] [address] Aug, [facility] [address] [id number] [place] [address] Aug, [facility] [address] [place] [id number] [place] [address] Jul, [facility] [address] [id number] [place] [address] Jun, [facility] [address] [place] [id number] [place] [address] Jun, [facility] [address] [id number] [place] [address] Jun, [facility] [address] [id number] [place] [address] Jun, [facility] [address] [id number] [place] [address] May, [facility] [address] [id number] [place] [address] May, [facility] [address] [id number] [place] [address] May, [facility] [address] [id number] [place] [address] May, [facility] [address] [id number] [place] [address] May, [facility] [address] [id number] [place] [address] May, [facility] [address] [id number] [place] [address] May, [facility] [address] [id number] [place] [address] Apr, [facility] [address] [id number] [place] [address] Apr, [facility] [address] [id number] [place] [address] Apr, [facility] [address] [id number] [place] [address] Apr, [facility] [address] [id number] [place] [address] Apr, [facility] [address] [id number] [place] [address] Apr, [facility] [address] [id number] [place] [address] Apr, [facility] [address] [id number] [place] [address] Mar, [facility] [address] [id number] [place] [address] Mar, [facility] [address] [id number] [place] [address] Mar, [facility] [address] [id number] [place] [address] Mar, [facility] [address] [id number] [place] [address] Mar, [facility] [address] [id number] [place] [address] Mar, [facility] [address] [id number] [place] [address] Mar, [facility] [address] [id number] [place] [address] Mar, [facility] [address] [facility] [id number] [place] [address] Mar, [facility] [address] [id number] [place] [address] Mar, [facility] [address] [id number] [place] [address] Mar, [facility] [address] [id number] [place] [address] Mar, [facility] [address] [id number] [place] [address] Feb, [facility] [address] [id number] [place] [address] Jan, [facility] [address] [id number] [place] [address] Jan, [facility] [address] [id number] [place] [address] Jan, [facility] [address] [id number] [place] [address] Jan, [facility] [address] [id number] [place] [address] Jan, [facility] [address] [id number] [place] [address] Dec, [facility] [address] [id number] [place] [address] Dec, [facility] [address] [id number] [place] [address] Nov, [facility] [address] [id number] [place] [address] Nov, [facility] [address] [id number] [place] [address] Nov, [facility] [address] [id number] [place] [address] October, [facility] [address] [id number] [place] [address] October, [facility] [address] [id number] [place] [address] October, [facility] [address] [id number] [place] [address] October, [facility] [address] [id number] [place] [address] October, [facility] [address] [id number] [place] [address] October, [facility] [address] [id number] [place] [address] October, [facility] [address] [id number] [place] [address] Sep, [facility] [address] [id number] [place] [address] 26 Sep, 2011 [facility] [address] [id number] [place] [address] 26 Sep, 2011 [facility] [address] [id number] [place] [address] 25 Sep, 2011 [facility] [address] [id number] [place] [address] 24 Sep, 2011 [facility] [address] [id number] [place] [address] 19 Sep, 2011 [facility] [address] [id number] [place] [address] 17 Sep, 2011 [facility] [address] [id number] [place] [address] 16 Sep, 2011 [facility] [address] [id number] [place] [address] 16 Sep, 2011 [facility] [address] [id number] [place] [address] 14 Sep, 2011 [facility] [address] [id number] [place] [address] 13 Sep, 2011 [facility] [address] [facility] [id number] [facility] [address] 10 Sep, 2011 [facility] [address] [facility] [id number] [place] [address] 09 Sep, 2011 [facility] [address] [id number] [facility] [address] 27 Aug, 2011 [facility] [address] [id number] [place] [address] Aug, [facility] [address] [facility] [id number] [facility] [address] 08 Aug, 2011 [facility] [address] [id number] [place] [address] 06 Aug, 2011 [facility] [address] [id number] [place] [address] 28 Jul, 2011 [facility] [address] [id number] [place] [address] 22 Jul, 2011 [facility] [address] [id number] [place] [address] 16 Jul, 2011 [facility] [address] [id number] [place] [address] 15 Jul, 2011 [facility] [address] [id number] [place] [address] 14 Jul, 2011 [facility] [address] [id number] [place] [address] 10 Jul, 2011 [facility] [address] [facility] [id number] [place] [address] Jun, [facility] [address] [id number] [place] [address] Jun, [facility] [address] [id number] [place] [address] Jun, [facility] [address] [id number] [place] [address] Jun, [facility] [address] [id number] [place] [address] Jun, [facility] [address] [id number] [place] [address] May, [facility] [address] [id number] [place] [address] May, [facility] [id number] [place] [address] May, [facility] [address] [id number] [place] [address] May, [facility] [address] [id number] [place] [address] May, [facility] [address] [id number] [place] [address] May, [facility] [id number] [place] [address] May, [facility] [address] [id number] [place] [address] 15 Apr, 2011 [facility] [address] [id number] [place] [address] 15 Apr, 2011 [facility] [address] [id number] [place] [address] Apr, [facility] [address] [id number] [place] [address] Apr, [facility] [address] [id number] [place] [address] Apr, [facility] [address] [id number] [place] [address] Apr, [facility] [address] [id number] [place] [address] Mar, [facility] [address] [id number] [place] [address] Mar, [facility] [address] [id number] [place] [address] Mar[facility] [address] [id number] [place] [address] Mar, [facility] [address] [id number] [place] [address] Jan, [facility] [address] [id number] [place] [address] Dec, [facility] [address] [id number] [place] [address] Dec, [facility] [address] [id number] [place] [address] October, [facility] [address] [id number] [place] [address] Sep, [facility] [address] [id number] [place] [address] Sep, [facility] [address] [id number] [place] [address] 17 Jul, 2010 [facility] [address] [id number] [place] [address] Jul, [facility] [address] [id number] [place] [address] May, [facility] [address] [id number] [place] [address] May, [facility] [address] [id number] [place] [address] 08 May, 2010 [facility] [address] [id number] [place] [address] May, [facility] [address] [id number] [place] [address] Apr, [facility] [address] [id number] [place] [address] Apr, [facility] [address] [id number] [place] [address] Apr, [facility] [address] [id number] [place] [address] 18 Apr, 2010 [facility] [address] [id number] [place] [address] Apr, [facility] [address] [id number] [place] [address] 21 Mar, 2010 [facility] [address] [id number] [place] [address] 14 Mar, 2010 [facility] [address] [id number] [place] [address] 13 Mar, 2010 [facility] [address] [id number] [place] [address] Mar, [facility] [address] [id number] [place] [address] Jan, [facility] [address] [id number] [place] [address] 15 Dec, 2009 [facility] [address] [id number] [place] [address] 10 Sep, 2009 [facility] [address] [id number] [place] [address] May, [facility] [address] [id number] [place] [address] May, [facility] [address] [id number] [place] [address] May, [facility] [address] [id number] [place] [address] Apr, [facility] [address] [id number] [place] [address] 17 Apr, 2009 [facility] [address] [id number] [place] [address] Apr, [facility] [address] [id number] [place] [address] Apr, [facility] [address] [id number] [place] [address] Apr, [facility] [address] [id number] [place] [address] Mar, [facility] [address] [id number] [place] [address] Mar, [facility] [address] [id number] [place] [address] Jul, IMMUNIZATIONS No Known Immunizations SOCIAL HISTORY Never Assessed REASON FOR VISIT PLAN OF CARE VITAL SIGNS Height 62 in 2013-11-03 Weight 260 lbs 2013-11-03 Temperature 98.2 degrees Fahrenheit 2013-11-03 Heart Rate 80 bpm 2013-11-03 Respiratory Rate 20 2013-11-03 Blood pressure systolic 120 mmHg 2013-11-03 Blood pressure diastolic 62 mmHg 2013-11-03 MEDICATIONS Unknown Medications RESULTS No Results PROCEDURES [...] and replaced VC 10/2018 Hospitalization History [facility]ul[facility] Hospitalization [facility]- Abd pain 03/07/2017 Hospitalization History [facility]- Abd pain 03/14/2017 Hospitalization History [facility]- No bowel movement, rash 04/13/2017 Hospitalization History [facility]- Abd pain r/ t kidney surgery on 04/10/17 04/17/2017 Hospitalization History [facility]- Abd pain r/ t kidney surgery on 04/10/17 04/18/2017 Hospitalization History [facility]- Lower abd pain 04/17 Hospitalization History [facility]- Cannot urinate 05/17 Hospitalization History [facility]- Pancreatitis Sx Hospitalization History [facility]- Stomach pain 2017 Hospitalization History [facility]- Left side pain 07/19 Hospitalization History [facility]- Incision site infec tion 08/30/2017 Hospitalization History [facility]- Post Op Serom a/Hematoma Left Abdomen. Discharged 09/04/17- Dr Daniel 09/02/2017 Hospitalization History [facility]- Right shoulder and back pain 10/22/2017 Hospitalization History [facility]- Shoulder/Back pain 11/11/2017 Hospitalization History [facility]- Right shoulder blad e pain 12/04/2017 Hospitalization History [facility]- C-Diff 12/13/2017 Hospitalization History C diff et MRSA 12/27/2017 Hospitalization History [facility] Bowel Obstruction 10/2018 Hospitalization History [facility]- Abdominal pain and nausea 01/08/2019
--- OUTSIDE RECORDS SUMMARY | 2019-10-17 05:11 | XMS REPORT ---
Author Author Janeth GIBBS [facility] Address [address] [place] [address] Care Team Providers Care Director Compensation Name Role Phone SAI CARMEN Unavailable PROBLEMS Type Condition ICD9-CM Code BWL43-FM Code Onset Dates Condition S tatus SNOMED Code Problem History of renal cell carcinoma Z85.528 Active 532332491 Problem Hepatic steatosis K76.0 Active 19 5175008 Problem Nodule of left lung R91.1 Active 933342897 Problem Right carpal tunnel syndrome G56.01 A ctive 274326790500010 Problem Mild obstructive sleep apnea G47.33 A ctive 38369727 Problem Moderate episode of recurrent major depressive disorder F33.1 Active 824696644 Problem Trichotillomania F63.3 Active 171 13536 Problem Morbid (severe) obesity due to excess calories E66 .01 Active 603902237 Problem Chronic tension-type headache, intractable G44.221 Active 011659226 Problem Asthma J45.909 Active 158750700 Problem Chronic pancreatitis K86.1 Active 133373759 Problem Atelectasis J98.11 Active 72258760 Problem Polydipsia R63.1 Active 27997667 Problem Chronic post-traumatic stress disorder (PTSD) F43. 12 Active 215843852 Problem Restless leg syndrome G25.81 Active 45274416 Problem Chronic fatigue R53.82 Active 8422 9001 Problem Intestinal malabsorption, unspecified K90.9 Active 83507339 Problem Primary osteoarthritis of right knee M17.11 Active 089566010377652 Problem Social phobia, generalized F40.11 Act yolanda 38253133 Problem FH: polycystic ovary Z84.2 Active 272986012 Problem Social phobia, unspecified F40.10 Act yolanda 68402996 Problem Hirsuties L68.0 Active 327728493 Problem Hyperlipidemia, mixed E78.2 Active 492697060 Problem Obesities, morbid E66.01 Active 23 5019547 Problem Menopausal symptoms N95.1 Active 17213344 Problem Conflict between patient and family Z63.9 Active 54867272 Problem Morbid obesity E66.01 Active 52626 6002 ALLERGIES No Information ENCOUNTERS Encounter Location Date Diagnosis [facility] [id number] [place] [address] Jul, [facility] [address] [address] Jun, [facility] [address] [address] Jun, [facility] [address] [address] Jun, [facility] [address] [address] May, [address] [place] [address] May, [facility] [address] [address] May, [facility] [id number] [place] [address] May, [facility] [address] [address] May, [facility] [address] [address] Apr, [facility] [address] [address] Apr, [facility] [id number] [place] [address] Apr, [facility] [address] [address] Mar, Cervical radiculopathy M54.12 [facility] [id number] [place] [address] Mar, [facility] [address] [address] Mar, [facility] [id number] [place] [address] Mar, [facility] [address] [address] Mar, [facility] [address] [address] Mar, [facility] [address] [address] Mar, [facility] [address] [address] Mar, [facility] [address] [address] Feb, Chronic cough R05 [facility] [address] [address] Feb, [facility] [address] [address] Feb, [facility] [address] [address] Feb, Cervical radiculopathy M54.12 [facility] [address] [address] 17 Feb, 2019 Pain of left thumb M79.645 [facility] [address] [address] Feb, [facility] [address] [address] Feb, [facility] [address] [address] Feb, [facility] [address] [address] Feb, Cough present for greater than 3 weeks R 05 [facility] [address] [address] Feb, Cough present for greater than 3 weeks R 05 ; Feels sick R68.89 ; History of renal cell carcinoma Z85.528 and Morbid obesity E66.01 [facility] [address] [address] Jan, [facility] [address] [facility] [place] [id number] Jan, Oral health maintenance status requiring routine preventive dental care K08.9 ; Dental examination Z01.20 and Caries K02.9 [facility] [address] [address] Jan, Dysuria R30.0 [facility] [address] [address] Jan, Dysuria R30.0 [place] [address] [address] Jan, Viral pharyngitis J02.9 and Morbid obesi ty E66.01 [facility] [address] [address] Jan, [facility] [address] [address] Jan, Left sided abdominal pain R10.9 ; Other acute postprocedural pain G89.18 ; History of renal cell carcinoma Z85.528 and Morbid obesity E66.01 [place] [address] [address] Dec, Dental examination Z01.20 [facility] [address] [address] Dec, Elevated LFTs R94.5 [place] [address] [address] Dec, Encounter for Medicare annual wellness e xam Z00.00 ; Chronic tension- type headache, intractable G44.221 ; Morbid (severe) obesity due to excess calories E66.01 ; Hyperlipidemia, mixed E78.2 ; Chronic pancreatitis K86.1 ; Asthma J45.909 ; Moderate episode of recurrent major depressive disorder F33.1 ; Chronic fatigue R53.82 and Social phobia, unspecified F40.10 [place] [address] [address] Dec, [place] [address] [address] Dec, [place] [address] [address] Dec, [place] [address] [address] Dec, Hyperlipidemia, mixed E78.2 ; History of renal cell carcinoma Z85.528 and Restless leg syndrome G25.81 [place] [address] [address] Dec, Hyperlipidemia, mixed E78.2 ; Chronic pa ncreatitis K86.1 ; Restless leg syndrome G25.81 ; Nodule of left lung R91.1 ; History of renal cell carcinoma Z85.528 ; Leg swelling M79.89 ; Morbid obesity E66.01 and Observed sleep apnea G47.30 [place] [address] [address] Nov, [place] [address] [address] Nov, [place] [address] [address] Nov, [facility] [address] [facility] [id number] [place] [address] Nov, Other acute postprocedural p ain G89.18 and Unspecified abdominal pain R10.9 [place] [address] [address] October, [place] [address] [address] October, Social phobia, generalized F40.11 ; Conf lict between patient and family Z63.9 and Morbid obesity E66.01 [facility] [address] [facility] [place] [address] October, [facility] [address] [facility] [place] [address] October, [facility] [address] [facility] [place] [address] October, [facility] [address] [facility] [place] [address] October, [facility] [place] [facility] [address] [place] [address] October, [facility] [id number] [place] [address] October, [facility] [place] [facility] [address] [place] [address] October, [facility] [address] [facility] [place] [address] October, Morbid obesity E66.01 ; Routine gynecolo gical examination Z01.419 and Menopausal symptoms N95.1 [facility] [address] [facility] [place] [address] October, [facility] [place] [facility] [address] [place] [address] Sep, [facility] [address] [facility] [place] [address] Sep, [facility] [id number] [place] [address] Sep, [facility] [address] [facility] [place] [address] Sep, [facility] [id number] [place] [address] Sep, Lower extremity edema R60.0 [facility] [address] [facility] [place] [address] Sep, [facility] [address] [facility] 3] [id number] [address] [place] [address], [place] [address] 08 Sep, 2018 Lower extremity edema R60.0 and Morbid obesity E66.01 [facility] [id number] [place] [address] Sep, [facility] [id number] [place] [address] Sep, [facility] [address] [address] Aug, [facility] [id number] [place] [address] Aug, Obesities, morbid E66.01 and Morbid obes ity E66.01 [facility] [id number] [place] [address] Aug, [address] [place] [address] Jul, [facility] [id number] [place] [address] Jul, [facility] [id number] [place] [address] Jul, [facility] [id number] [place] [address] Jul, Numbness of right hand R20.0 [facility] [id number] [place] [address] Jul, [facility] [id number] [place] [address] Jul, Numbness of right hand R20.0 [facility] [id number] [place] [address] Jul, [facility] [address] [address] Jul, [facility] [id number] [place] [address] Jul, Right-sided thoracic back pain M54.6 [facility] [address] [address] Jul, [facility] [address] [address] Jul, [facility] [address] [address] Jul, [facility] [address] [address] Jul, [facility] [address] [address] Jun, [facility] [address] [address] Jun, Acute pain of right shoulder M25.511 ; N umbness of right hand R20.0 and Trapezius muscle spasm M62.838 [place] [address] [address] Jun, [facility] [address] [address] Jun, [place] [address] [address] Jun, Cough R05 ; BMI 50.0-59.9, adult Z68.43 and Morbid obesity E66.01 [place] [address] [address] Jun, [facility] [address] [address] Jun, [facility] [address] [facility] 3] [id number] [address] [place] [address] Jun, BMI 45.0-49.9, adult Z68.42 and Acute non-recurrent maxillary sinusitis J01.00 [facility] [address] [facility]NOTE 3] [id number] [address] [place] [address] Jun, Acute sinusitis J01.90 ; Dys uria R30.0 and BMI 45.0- 49.9, adult Z68.42 [place] [address] [address] Jun, [place] [address] [address] Jun, [address] [address] [address] May, [address] [address] [address] May, [address] [address] [address] May, [place] [address] [address] May, [place] [address] [address] May, [address] [address] [address] Apr, Generalized social phobia F40.11 ; Trich otillomania F63.3 ; Chronic post-traumatic stress disorder (PTSD) F43.12 and BMI 45.0-49.9, adult Z68.42 [place] [place] [address] [address] Apr, [place] [address] [address] Apr, Chronic tension-type headache, intractab le G44.221 [place] [address] [address] Apr, [facility] [id number] [place] [address] Mar, [facility] N [facility]NOTE 3] [id number] [address] [place] [address] Mar, BMI 45.0-49.9, adult Z68.42 and Pimples R23.8 [place] [address] [address] Mar, [facility] [address] [address] Mar, [facility] [address] [address] Mar, Decreased urination R34 ; Chronic fatigu e R53.82 ; Peripheral edema R60.9 ; Diarrhea, unspecified type R19.7 ; Non-intractable vomiting with nausea, unspecified vomiting type R11.2 ; BMI 45.0-49.9, adult Z68.42 and Chronic post- traumatic stress disorder (PTSD) F43.12 [address] [place] [address] [address] Mar, Intestinal malabsorption, unspecified K9 0.9 ; Diarrhea, unspecified R19.7 ; Urinary urgency R39.15 ; Rectal bleeding K62.5 and Decreased urine output R34 [place] [address] [address] Mar, Decreased urine output R34 [place] [address] [address] Mar, Rectal bleeding K62.5 [place] [address] [address] Mar, Rectal bleeding K62.5 [place] [address] [address] Mar, Urinary urgency R39.15 [address] [place] [address] [address] Mar, Urinary urgency R39.15 [place] [address] [address] Mar, Primary osteoarthritis of right knee M17 .11 and BMI 45.0-49.9, adult Z68.42 [place] [address] [address] Mar, [place] [address] [address] Feb, Left upper arm pain M79.622 [address] [address] [address] Feb, [facility] [address] [address] Jan, Acute pain of right knee M25.561 ; Right upper quadrant abdominal pain R10.11 and BMI 45.0-49.9, adult Z68.42 [place] [address] [address] Jan, [place] [address] [address] Jan, [place] [address] [address] Dec, [place] [address] [address] Dec, Intestinal malabsorption, unspecified K9 0.9 and Diarrhea, unspecified R19.7 [place] [address] [address] Dec, [place] [address] [address] Dec, Strep throat J02.0 ; Intestinal malabsor ption, unspecified K90.9 ; Diarrhea, unspecified R19.7 ; Postoperative seroma involving digestive system after non-digestive system procedure K91.873 ; Hyperlipidemia, mixed E78.2 and BMI 45.0-49.9, adult Z68.42 [place] [address] [address] Dec, [place] [address] [address] Dec, Nausea R11.0 [facility] [address] [address] Dec, [facility] [address] [facility] 3] [id number] [address] [place] [address] Dec, Sore throat J02.9 ; Strep th roat J02.0 and BMI 45.0- 49.9, adult Z68.42 [facility] [id number] [place] [address] Dec, [facility] [address] [address] Dec, [facility] [address] [address] Dec, [facility] [address] [address] Dec, [facility] [address] [address] Dec, [facility] [address] [address] Dec, [facility] [address] [address] Dec, [facility] [address] [address] Dec, [facility] [address] [address] Dec, Clostridium difficile colitis A04.72 ; I ntractable vomiting with nausea, unspecified vomiting type R11.2 and BMI 45.0-49.9, adult Z68.42 [facility] [id number] [place] [address] Dec, [facility] [id number] [place] [address] Nov, [facility] [address] [address] Nov, [facility] [address] [address] Nov, [facility] [address] [address] Nov, [facility] [address] [facility]] [id number] [address] [place] [address] Nov, [place] [address] [address] Nov, Hyperlipidemia, mixed E78.2 [facility] [address] [facility] 3] [id number] [address] [place] [address] Nov, Acute suppurative otitis med ia of right ear without spontaneous rupture of tympanic membrane, recurrence not specified H66.001 and BMI 45.0-49.9, adult Z68.[address] [address] Nov, Hyperlipidemia, mixed E78.2 [place] [address] [address] Nov, [address] [address] Nov, [place] [address] [address] Nov, Nodule of left lung R91.[address] [address] 04 Nov, 2017 Medicare annual wellness visit, [...] adult Z68.42 and Encounter for immunization Z23 [address] [address] October, [address] [address] October, Nodule of left lung R91.1 [place] [address] [address] October, Nodule of left lung R91.1 [place] [address] [address] October, Recurrent major depressive disorder, in partial remission F33.41 ; Restless leg syndrome G25.81 ; Generalized social phobia F40.11 ; Chronic post- traumatic stress disorder (PTSD) F43.12 ; BMI 45.0-49.9, adult Z68.42 and Trichotillomania F63.3 [place] [address] [address] October, [place] [address] [address] Sep, Chronic fatigue R53.82 and BMI 45.0-49.9 , adult Z68.42 [place] [address] [address] Aug, [place] [address] [address] Jul, Restless leg syndrome G25.81 and B12 def iciency E53.[address] [address] Jul, [place] [address] [address] Jul, [place] [address] [address] Jun, [place] [address] [address] Jun, Fatigue, unspecified type R53.83 ; Histo ry of renal cell carcinoma Z85.528 ; Chronic pancreatitis K86.1 ; Restless leg syndrome G25.81 ; Dark urine R82.99 and BMI 45.0-49.9, adult Z68.42 [place] [address] [place] [address] Jun, [facility] [address] [address] Jun, [facility] [address] [address] Jun, [facility] [address] [address] Jun, [facility] [address] [address] May, Chronic post-traumatic stress disorder ( PTSD) F43.12 ; Moderate episode of recurrent major depressive disorder F33.1 ; Trichotillomania F63.3 and Generalized social phobia F40.11 [place] [address] [address] May, [place] [address] [address] May, Chronic post-traumatic stress disorder ( PTSD) F43.12 ; Moderate episode of recurrent major depressive disorder F33.1 ; Trichotillomania F63.3 and Generalized social phobia F40.11 [place] [address] [address] May, Hyperlipidemia, mixed E78.2 ; Morbid (se nehemias) obesity due to excess calories E66.01 ; Chronic post-traumatic stress disorder (PTSD) F43.12 ; Moderate episode of recurrent major depressive disorder F33.1 ; Trichotillomania F63.3 and Generalized social phobia F40.11 [place] [address] [address] Apr, [place] [address] [address] Apr, Hyperlipidemia, mixed E78.2 ; Morbid (se nehemias) obesity due to excess calories E66.01 ; Chronic post-traumatic stress disorder (PTSD) F43.12 ; Moderate episode of recurrent major depressive disorder F33.1 ; Trichotillomania F63.3 and Generalized social phobia F40.11 [place] [address] [address] Apr, Trichotillomania F63.3 ; Generalized soc ial phobia F40.11 ; Chronic post-traumatic stress disorder (PTSD) F43.12 and Moderate episode of recurrent major depressive disorder F33.1 [place] [address] [address] Apr, [place] [address] [address] Apr, [place] [address] [address] Mar, Moderate episode of recurrent major depr essive disorder F33.1 ; Trichotillomania F63.3 ; Chronic post-traumatic stress disorder (PTSD) F43.12 ; Generalized social phobia F40.11 and Restless leg syndrome G25.81 [place] [address] [address] Mar, [place] [address] [address] Mar, [place] [address] [address] Feb, Left kidney mass N28.[address] [address] Jan, [place] [address] [address] Dec, Polydipsia R63.1 ; Chronic pancreatitis K86.1 and Fatigue, unspecified type R53.[address] [address] Nov, [place] [address] [address] Nov, [place] [address] [address] Nov, Headache around the eyes R51 [place] [address] [address] Nov, [place] [address] [address] October, STD exposure Z20.2 [place] [address] [address] October, STD exposure Z20.2 [place] [address] [address] October, Chronic post-traumatic stress disorder ( PTSD) F43.12 ; Generalized social phobia F40.11 ; Trichotillomania F63.3 and Restless leg syndrome G25.81 [place] [address] [address] October, [place] [address] [address] Sep, [place] [address] [address] Aug, [place] [address] [address] Aug, [place] [address] [address] Aug, Neck mass R22.1 [place] [address] [address] Aug, Atelectasis J98.11 [place] [address] [address] 28 Jul, 2016 Hyperlipidemia, mixed E78.2 ; Atypical p neumonia J18.9 and Neck mass R22.1 [place] [address] [address] 15 Jul, 2016 Hemoptysis R04.2 [place] [address] [address] 08 Jul, 2016 Acute non-recurrent pansinusitis J01.40 ; Hemoptysis R04.2 ; Polydipsia R63.1 and Malaise R53.81 [facility] [address] [place] [id number] [place] [id number] May, Other viral agents as the ca use of diseases classified elsewhere B97.89 and Acute upper respiratory infection, unspecified J06.[address] [facility] [place] [address] [address] Mar, Nausea R11.[address] [facility] [address] [address] Dec, Hives L50.9 [place] [address] [address] Dec, [facility] [place] [address] [address] Dec, Cutaneous abscess of limb, u nspecified L02.419 ; Cellulitis of unspecified part of limb L03.119 ; Encounter for incision and drainage procedure Z01.89 and Encounter for recheck of abscess following i ncision and drainage Z09 [facility] [place] [address] [address] [place] [id number] [place] [address] Dec, Abscess of leg, right L02.41 5 [place] [address] [address] 08 Dec, 2015 Cellulitis of unspecified part of limb L 03.119 and Cutaneous abscess of limb, unspecified L02.419 [place] [address] [address] Dec, [place] [address] [address] Dec, [facility] [place] [address] [address] [place] [id number] [place] [phone] Aug, [place] [address] [address] Aug, [facility] [address] [place] [id number] [place] [address] Jul, Pain in unspecified wrist M2 5.539 and Back pain, thoracic M54.6 [facility] [address] [facility]NOTE 3] [id number] [place] [address] 13 Jun, 2015 Strain of right wrist, initi al encounter S66.911A [place] [address] [address] 11 Jun, 2015 Chronic pancreatitis, unspecified pancre atitis type K86.1 ; Hirsuties L68.0 ; Morbid (severe) obesity due to excess calories E66.01 ; Chronic pancreatitis K86.1 and Asthma J45.909 [place] [address] [address] May, [place] [address] [address] May, Hyperlipidemia, mixed E78.2 and Muscle s pasm of back M62.830 [place] [address] [address] Apr, [place] [address] [address] Apr, Torticollis M43.6 [place] [address] [address] 09 Apr, 2015 Right-sided thoracic back pain M54.6 [place] [address] [address] 15 Mar, 2015 Rash R21 [place] [address] [address] Mar, [place] [address] [address] Jan, [place] [address] [address] Dec, [facility] [id number] [place] [address] Dec, Urinary frequency 788.41 and Nocturia mo re than twice per night 788.43 [facility] [id number] [place] [address] Nov, [facility] [id number] [place] [address] Nov, [facility] [address] [address] Nov, Abdominal pain 789.00 [facility] [address] [address] October, TDAP DX V06.1 [facility] [address] [address] October, [facility] [address] [address] October, Disturbance of skin sensation 782.0 ; Wr ist pain, right 719.43 ; Hyperlipidemia 272.4 and Skin lesion of face 709.9 [facility] [id number] [place] [address] Sep, [facility] [address] [address] Sep, [facility] [address] [address] Aug, [facility] [id number] [place] [address] Aug, [facility] [address] [address] Aug, [facility] [address] [address] Aug, [facility] [address] [address] Aug, [facility] [address] [place] [address] 16 Aug, 2014 [facility] [address] [facility]NOTE 3] [id number] [place] [address] 14 Aug, 2014 [facility] [address] [id number] [place] [address] 14 Aug, 2014 [facility] [address] [id number] [place] [address] Aug, [facility] [address] [id number] [place] [address] Aug, [facility] [address] [id number] [place] [address] Aug, [facility] [address] [id number] [place] [address] Aug, [facility] [address] [id number] [place] [address] Aug, [facility] [address] [id number] [place] [address] Aug, [facility] [address] [id number] [place] [address] Jul, [facility] [address] [id number] [place] [address] Jul, [facility] [address] [id number] [place] [address] Jul, [facility] [address] [id number] [place] [address] Jul, [facility] [address] [id number] [place] [address] Jul, [facility] [address] [id number] [place] [address] Jul, [facility] [address] [id number] [place] [address] Jun, [facility] [address] [id number] [place] [address] Jun, [facility] [address] [id number] [place] [address] Jun, [facility] [address] [id number] [place] [address] Jun, [facility] [address] [id number] [place] [address] Jun, [facility] [address] [id number] [place] [address] Jun, [facility] [address] [id number] [place] [address] Jun, [facility] [address] [id number] [place] [address] Jun, [facility] [address] [id number] [place] [address] May, [facility] [address] [id number] [place] [address] May, [facility] [address] [id number] [place] [address] May, [facility] [address] [id number] [place] [address] May, [facility] [address] [id number] [place] [address] May, [facility] [address] [id number] [place] [address] May, [facility] [address] [id number] [place] [address] May, [facility] [address] [id number] [place] [address] May, [facility] [address] [id number] [place] [address] May, [facility] [address] [id number] [place] [address] May, [facility] [address] [id number] [place] [address] May, [facility] [address] [id number] [place] [address] May, [facility] [address] [id number] [place] [address] Apr, [facility] [address] [id number] [place] [address] Apr, [facility] [address] [id number] [place] [address] Apr, [facility] [address] [id number] [place] [address] Apr, [facility] [address] [id number] [place] [address] Apr, [facility] [address] [id number] [place] [address] Apr, [facility] [address] [id number] [place] [address] Apr, [facility] [address] [id number] [place] [address] Apr, [facility] [address] [id number] [place] [address] Apr, [facility] [address] [id number] [place] [address] Apr, [facility] [address] [id number] [place] [address] Apr, [facility] [address] [id number] [place] [address] Apr, [facility] [address] [id number] [place] [address] Mar, [facility] [address] [id number] [place] [address] Mar, [facility] [address] [id number] [place] [address] Mar, [facility] [address] [facility][NOTE 3] [id number] [place] [address] 02 Mar, 2014 [facility] [address] [facility][NOTE 3] [id number] [place] [address] Feb, 2013 [facility] [address] [facility][NOTE 3] [id number] [place] [address] Feb, 2013 [facility] [address] [id number] [place] [address] 05 Feb, 2013 [facility] [address] [facility][NOTE 3] [id number] [place] [address] 05 Feb, 2013 [facility] [address] [facility][NOTE 3] [id number] [place] [address] Feb, 2013 [facility] [address] [id number] [place] [address] Feb, 2013 [facility] [address] [id number] [place] [address] Jan, [facility] [address] [id number] [place] [address] Jan, [facility] [address] [id number] [place] [address] Jan, [facility] [address] [id number] [place] [address] Jan, [facility] [address] [id number] [place] [address] Jan, [facility] [address] [id number] [place] [address] Jan, [facility] [address] [facility][NOTE 3] [id number] [place] [address] Jan, [facility] [address] [id number] [place] [address] Jan, [facility] [address] [id number] [place] [address] Jan, [facility] [address] [id number] [place] [address] Jan, [facility] [address] [id number] [place] [address] Jan, [facility] [address] [facility][NOTE 3] [id number] [place] [address] Jan, [facility] [address] [facility][NOTE 3] [id number] [place] [address] Jan, [facility] [address] [id number] [place] [address] Jan, [facility] [address] [facility][NOTE 3] [id number] [place] [address] Dec, [facility] [address] [id number] [place] [address] Dec, [facility] [address] [id number] [place] [address] Dec, [facility] [address] [id number] [place] [address] Dec, [facility] [address] [id number] [place] [address] Nov, [facility] [address] [id number] [place] [address] Nov, [facility] [address] [id number] [place] [address] Nov, [facility] [address] [id number] [place] [address] Nov, [facility] [address] [id number] [place] [address] Nov, [facility] [address] [id number] [place] [address] October, [facility] [address] [id number] [place] [address] October, [facility] [address] [id number] [place] [address] October, [facility] [address] [id number] [place] [address] October, [facility] [address] [facility][NOTE 3] [id number] [facility] [place] [address] October, [facility] [address] [facility][NOTE 3] [id number] [place] [address] October, [facility] [address] [id number] [facility] [place] [address] October, [facility] [address] [id number] [facility] [place] [address] October, [facility] [address] [facility][NOTE 3] [id number] [facility] [place] [address] October, [facility] [address] [id number] [place] [address] October, [facility] [address] [id number] [place] [address] October, [facility] [address] [id number] [place] [address] October, [facility] [address] [facility][NOTE 3] [id number] [facility] [place] [address] October, [facility] [address] [id number] [place] [address] October, [facility] [address] [id number] [place] [address] Sep, [facility] [address] [id number] [facility] [place] [address] Sep, [facility] [address] [facility][NOTE 3] [id number] [facility] [place] [address] Sep, [facility] [address] [id number] [place] [address] Sep, [facility] [address] [id number] [facility] [place] [address] Sep, [facility] [address] [id number] [facility] [place] [address] Sep, [facility] [address] [id number] [place] [address] Sep, [facility] [address] [id number] [place] [address] Sep, [facility] [address] [id number] [place] [address] Sep, [facility] [address] [id number] [place] [address] Sep, [facility] [address] [id number] [place] [address] Sep, [facility] [address] [id number] [place] [address] Sep, [facility] [address] [id number] [place] [address] Sep, [facility] [address] [id number] [place] [address] Sep, [facility] [address] [id number] [place] [address] Sep, [facility] [address] [id number] [place] [address] Aug, [facility] [address] [id number] [place] [address] Aug, [facility] [address] [id number] [place] [address] Aug, [facility] [address] [id number] [place] [address] Aug, [facility] [address] [id number] [place] [address] Jul, [facility] [address] [id number] [place] [address] Jul, [facility] [address] [id number] [place] [address] Jul, [facility] [address] [id number] [place] [address] 03 Jul, 2013 [facility] [address] [id number] [place] [address] 15 Jun, 2013 [facility] [address] [id number] [place] [address] 15 Jun, 2013 [facility] [address] [id number] [place] [address] 15 Jun, 2013 [facility] [address] [id number] [place] [address] 15 Jun, 2013 [facility] [address] [id number] [place] [address] Jun, [facility] [address] [id number] [place] [address] Jun, [facility] [address] [id number] [place] [address] 08 Jun, 2013 [facility] [address] [id number] [place] [address] Jun, [facility] [address] [id number] [place] [address] May, [facility] [address] [id number] [place] [address] May, [facility] [address] [id number] [place] [address] 18 May, 2013 [facility] [address] [id number] [place] [address] 18 May, 2013 [facility] [address] [id number] [place] [address] 17 May, 2013 [facility] [address] [facility] [id number] [place] [id number] May, [facility] [address] [id number] [place] [address] 17 May, 2013 [facility] [address] [id number] [place] [address] 17 May, 2013 [facility] [address] [id number] [place] [address] 16 May, 2013 [facility] [address] [id number] [place] [address] 16 May, 2013 [facility] [address] [id number] [place] [address] 14 May, 2013 [facility] [address] [id number] [place] [address] 14 May, 2013 [facility] [address] [id number] [place] [address] 13 May, 2013 [facility] [address] [id number] [place] [address] 13 May, 2013 [facility] [address] [id number] [place] [address] 12 May, 2013 [facility] [address] [id number] [place] [address] 12 May, 2013 [facility] [address] [id number] [place] [address] 11 May, 2013 [facility] [address] [id number] [place] [address] May, [facility] [address] [id number] [place] [address] Apr, [facility] [address] [id number] [place] [address] Apr, [facility] [address] [id number] [place] [address] Apr, [facility] [address] [id number] [place] [address] Apr, [facility] [address] [id number] [place] [address] 27 Aug, 2012 [facility] [address] [id number] [place] [address] 18 Aug, 2012 [facility] [address] [id number] [place] [address] 06 Aug, 2012 [facility] [address] [id number] [place] [address] Aug, [facility] [address] [id number] [place] [address] Jul, [facility] [address] [id number] [place] [address] Jun, [facility] [address] [id number] [place] [address] Jun, [facility] [address] [id number] [place] [address] Jun, [facility] [address] [id number] [place] [address] Jun, [facility] [address] [id number] [place] [address] May, [facility] [id number] [place] [address] May, [facility] [address] [id number] [place] [address] May, [facility] [address] [id number] [place] [address] May, [facility] [address] [id number] [place] [address] May, [facility] [id number] [place] [address] May, [facility] [address] [id number] [place] [address] May, [facility] [address] [id number] [place] [address] Apr, [facility] [id number] [place] [address] Apr, [facility] [address] [id number] [place] [address] Apr, [facility] [id number] [place] [address] Apr, [facility] [address] [id number] [place] [address] Apr, 2011 [facility] [address] [id number] [place] [address] Apr, [facility] [address] [id number] [place] [address] Apr, [facility] [address] [id number] [place] [address] Mar, [facility] [address] [id number] [place] [address] Mar, [facility] [address] [id number] [place] [address] Mar, [facility] [address] [id number] [place] [address] Mar, [facility] [address] [id number] [place] [address] Mar, [facility] [address] [id number] [place] [address] Mar, [facility] [address] [id number] [place] [address] Mar, [facility] [address] [id number] [place] [address] Mar, [facility] [address] [id number] [place] [address] Mar, [facility] [address] [id number] [place] [address] Mar, [facility] [address] [id number] [place] [address] Mar, [facility] [address] [id number] [place] [address] Mar, [facility] [address] [id number] [place] [address] 06 Feb, 2012 [facility] [address] [id number] [place] [address] Jan, [facility] [address] [id number] [place] [address] Jan, [facility] [address] [id number] [place] [address] Jan, [facility] [address] [id number] [place] [address] Jan, [facility] [address] [id number] [place] [address] Jan, [facility] [address] [id number] [place] [address] Dec, [facility] [address] [id number] [place] [address] Dec, [facility] [address] [id number] [place] [address] Nov, [facility] [address] [id number] [place] [address] Nov, [facility] [address] [id number] [place] [address] Nov, [facility] [address] [id number] [place] [address] October, [facility] [address] [id number] [place] [address] October, [facility] [address] [id number] [place] [address] October, [facility] [address] [id number] [place] [address] October, [facility] [address] [id number] [place] [address] October, [facility] [address] [id number] [place] [address] October, [facility] [address] [id number] [place] [address] October, [facility] [address] [id number] [place] [address] 26 Sep, 2011 [facility] [address] [id number] [place] [address] 26 Sep, 2011 [facility] [address] [id number] [place] [address] 26 Sep, 2011 [facility] [address] [id number] [place] [address] 25 Sep, 2011 [facility] [address] [id number] [place] [address] 24 Sep, 2011 [facility] [address] [id number] [place] [address] 19 Sep, 2011 [facility] [address] [id number] [place] [address] 17 Sep, 2011 [facility] [address] [id number] [place] [address] 16 Sep, 2011 [facility] [address] [id number] [place] [address] 16 Sep, 2011 [facility] [address] [id number] [place] [address] 14 Sep, 2011 [facility] [address] [id number] [place] [address] 13 Sep, 2011 [facility] [address] [id number] [place] [address] 10 Sep, 2011 [facility] [address] [id number] [place] [address] 09 Sep, 2011 [facility] [address] [id number] [place] [address] 27 Aug, 2011 [facility] [address] [id number] [place] [address] 12 Aug, 2011 [facility] [address] [id number] [place] [address] 08 Aug, 2011 [facility] [address] [id number] [place] [address] Aug, [facility] [address] [id number] [facility] [place] [address] 28 Jul, 2011 [facility] [address] [id number] [facility] [place] [address] 22 Jul, 2011 [facility] [address] [id number] [place] [address] 16 Jul, 2011 [facility] [address] [id number] [place] [address] 15 Jul, 2011 [facility] [address] [id number] [place] [address] 14 Jul, 2011 [facility] [address] [id number] [place] [address] 10 Jul, 2011 [facility] [address] [id number] [place] [address] Jun, [facility] [address] [id number] [place] [address] Jun, [facility] [address] [id number] [place] [address] Jun, [facility] [address] [id number] [place] [address] Jun, [facility] [address] [id number] [place] [address] Jun, [facility] [address] [id number] [place] [address] May, [facility] [address] [id number] [place] [address] May, [facility] [address] [id number] [place] [address] May, [facility] [address] [id number] [place] [address] May, [facility] [address] [id number] [place] [address] May, [facility] [address] [id number] [place] [address] 07 May, 2011 [facility] [address] [id number] [place] [address] May, [facility] [address] [id number] [place] [address] Apr, [facility] [address] [id number] [place] [address] Apr, [facility] [address] [id number] [place] [address] Apr, [facility] [address] [id number] [place] [address] Apr, [facility] [address] [id number] [place] [address] Apr, [facility] [address] [id number] [place] [address] Apr, [facility] [address] [id number] [place] [address] Mar, [facility] [address] [id number] [place] [address] Mar, [facility] [address] [id number] [place] [address] Mar, [facility] [address] [id number] [place] [address] Mar, [facility] [address] [id number] [place] [address] Jan, [facility] [address] [id number] [place] [address] Dec, [facility] [id number] [place] [address] Dec, [facility] [address] [id number] [place] [address] October, [facility] [address] [id number] [place] [address] Sep, [facility] [address] [id number] [place] [address] 14 Sep, 2010 [facility] [address] [id number] [place] [address] 17 Jul, 2010 [facility] [address] [id number] [place] [address] 16 Jul, 2010 [facility] [address] [id number] [place] [address] 31 May, 2010 [facility] [address] [id number] [place] [address] May, [facility] [address] [id number] [place] [address] May, [facility] [address] [id number] [place] [address] May, [facility] [address] [id number] [place] [address] Apr, [facility] [address] [id number] [place] [address] Apr, [facility] [address] [id number] [place] [address] Apr, [facility] [address] [id number] [place] [address] Apr, [facility] [address] [id number] [place] [address] Apr, [facility] [address] [id number] [place] [address] Mar, [facility] [address] [id number] [place] [address] 14 Mar, 2010 [facility] [address] [id number] [place] [address] 13 Mar, 2010 [facility] [address] [id number] [place] [address] 12 Mar, 2010 [facility] [id number] [place] [address] Jan, [facility] [id number] [place] [address] Dec, [facility] [id number] [place] [address] Sep, [facility] [id number] [place] [address] May, [facility] [address] [address] May, [facility] [address] [address] May, [facility] [address] [address] Apr, [facility] [address] [address] Apr, [facility] [address] [address] Apr, [facility] [id number] [place] [address] Apr, [facility] [address] [address] Apr, [facility] [id number] [place] [address] Mar, [facility] [address] [address] Mar, [facility] [id number] [place] [address] Jul, IMMUNIZATIONS No Known Immunizations SOCIAL HISTORY [...] cancer stage 3/ removed left kidn 2016 Surgical History arthroscopic knee surgery- D r [...] and replaced VC 10/2018 Hospitalization History Cellulitis-[facility]ia [facility] Hospitalization History [facility]- Abd pain 03/07/2017 Hospitalization History [facility]- Abd pain 03/14/2017 Hospitalization History [facility]- No bowel movement, rash 04/13/2017 Hospitalization History [facility]- Abd pain r/ t kidney surgery on 04/10/17 04/17/2017 Hospitalization History [facility]- Abd pain r/ t kidney surgery on 04/10/17 04/18/2017 Hospitalization History [facility]- Lower abd pain 04/17 Hospitalization History [facility]- Cannot urinate 05/17 Hospitalization History [facility]- Pancreatitis Sx Hospitalization History [facility]- Stomach pain 2017 Hospitalization History [facility]- Left side pain 07/19 Hospitalization History [facility]- Incision site infec tion 08/30/2017 Hospitalization History [facility]- Post Op Serom a/Hematoma Left Abdomen. Discharged 09/04/17- Dr Daniel 09/02/2017 Hospitalization History [facility]- Right shoulder and back pain 10/22/2017 Hospitalization History [facility]- Shoulder/Back pain 11/11/2017 [facility] History [facility]- Right shoulder blad e pain 12/04/2017 [facility]- C-Diff 12/13/2017 Hospitalization History C diff et MRSA 12/27/2017 Hospitalization History [facility] Bowel Obstruction 10/2018 [facility]- Abdominal pain and nausea 01/08/2019
--- OUTSIDE RECORDS SUMMARY | 2019-10-17 05:11 | XMS REPORT ---
Author Author Janeth WADE [facility] Address [address] [place] [address] Care Team Providers Care English Instructor Name Role Phone ANSON WADE Unavailable PROBLEMS Type Condition ICD9-CM Code KIK71-GK Code Onset Dates Condition S tatus SNOMED Code Problem History of renal cell carcinoma Z85.528 Active 483723972 Problem Hepatic steatosis K76.0 Active 19 7356638 Problem Nodule of left lung R91.1 Active 841621114 Problem Right carpal tunnel syndrome G56.01 A ctive 347169873149579 Problem Mild obstructive sleep apnea G47.33 A ctive 74561054 Problem Moderate episode of recurrent major depressive disorder F33.1 Active 548284394 Problem Trichotillomania F63.3 Active 171 17021 Problem Morbid (severe) obesity due to excess calories E66 .01 Active 484899581 Problem Chronic tension-type headache, intractable G44.221 Active 190323652 Problem Asthma J45.909 Active 394017078 Problem Chronic pancreatitis K86.1 Active 170450512 Problem Atelectasis J98.11 Active 25486120 Problem Polydipsia R63.1 Active 74541034 Problem Chronic post-traumatic stress disorder (PTSD) F43. 12 Active 326068038 Problem Restless leg syndrome G25.81 Active 09282195 Problem Chronic fatigue R53.82 Active 8422 9001 Problem Intestinal malabsorption, unspecified K90.9 Active 45315470 Problem Primary osteoarthritis of right knee M17.11 Active 865256500418971 Problem Social phobia, generalized F40.11 Act yolanda 90878463 Problem FH: polycystic ovary Z84.2 Active 141515816 Problem Social phobia, unspecified F40.10 Act yolanda 74634920 Problem Hirsuties L68.0 Active 781755236 Problem Hyperlipidemia, mixed E78.2 Active 121783315 Problem Obesities, morbid E66.01 Active 23 7990860 Problem Menopausal symptoms N95.1 Active 86141484 Problem Conflict between patient and family Z63.9 Active 51480072 Problem Morbid obesity E66.01 Active 76395 6002 ALLERGIES No Information ENCOUNTERS Encounter Location Date Diagnosis [facility] [id number] [place] [address] Jul, [facility] [id number] [place] [address] Jun, [facility] [address] [address] Jun, [facility] [id number] [place] [address] Jun, [facility] [id number] [place] [address] May, [address] [place] [address] May, [facility] [id number] [place] [address] May, [facility] [id number] [place] [address] May, [facility] [id number] [place] [address] May, [facility] [id number] [place] [address] Apr, [facility] [id number] [place] [address] Apr, [facility] [id number] [place] [address] Apr, [facility] [id number] [place] [address] Mar, Cervical radiculopathy M54.12 [facility] [id number] [place] [address] Mar, [facility] [address] [address] Mar, [facility] [address] [address] Mar, [facility] [address] [address] Mar, [facility] [address] [address] Mar, [facility] [address] [address] Mar, [facility] [address] [address] Mar, [facility] [address] [address] Feb, Chronic cough R05 [facility] [address] [address] Feb, [facility] [address] [address] Feb, [facility] [address] [address] Feb, Cervical radiculopathy M54.12 [facility] [address] [address] 17 Feb, 2019 Pain of left thumb M79.645 [facility] [address] [address] Feb, [facility] [address] [address] Feb, [facility] [address] [address] Feb, [facility] [address] [address] Feb, Cough present for greater than 3 weeks R 05 [facility] [address] [address] Feb, Cough present for greater than 3 weeks R 05 ; Feels sick R68.89 ; History of renal cell carcinoma Z85.528 and Morbid obesity E66.01 [facility] [address] [address] Jan, [facility] [address] [facility] [place] [id number] Jan, Oral health maintenance status requiring routine preventive dental care K08.9 ; Dental examination Z01.20 and Caries K02.9 [facility] [address] [address] Jan, Dysuria R30.0 [place] [place] [address] [address] Jan, Dysuria R30.0 [place] [address] [address] Jan, Viral pharyngitis J02.9 and Morbid obesi ty E66.01 [facility] [address] [address] Jan, [facility] [address] [address] Jan, Left sided abdominal pain R10.9 ; Other acute postprocedural pain G89.18 ; History of renal cell carcinoma Z85.528 and Morbid obesity E66.01 [place] [address] [address] Dec, Dental examination Z01.20 [facility] [address] [address] Dec, Elevated LFTs R94.5 [place] [address] [address] Dec, Encounter for Medicare annual wellness e xam Z00.00 ; Chronic tension- type headache, intractable G44.221 ; Morbid (severe) obesity due to excess calories E66.01 ; Hyperlipidemia, mixed E78.2 ; Chronic pancreatitis K86.1 ; Asthma J45.909 ; Moderate episode of recurrent major depressive disorder F33.1 ; Chronic fatigue R53.82 and Social phobia, unspecified F40.10 [place] [address] [address] Dec, [place] [address] [address] Dec, [place] [address] [address] Dec, [place] [address] [address] Dec, Hyperlipidemia, mixed E78.2 ; History of renal cell carcinoma Z85.528 and Restless leg syndrome G25.81 [place] [address] [address] Dec, Hyperlipidemia, mixed E78.2 ; Chronic pa ncreatitis K86.1 ; Restless leg syndrome G25.81 ; Nodule of left lung R91.1 ; History of renal cell carcinoma Z85.528 ; Leg swelling M79.89 ; Morbid obesity E66.01 and Observed sleep apnea G47.30 [place] [address] [address] Nov, [place] [address] [address] Nov, [place] [address] [address] Nov, [facility] [address] [facility] [id number] [place] [address] Nov, Other acute postprocedural p ain G89.18 and Unspecified abdominal pain R10.9 [place] [address] [address] October, [place] [address] [address] October, Social phobia, generalized F40.11 ; Conf lict between patient and family Z63.9 and Morbid obesity E66.01 [facility] [address] [id number] [place] [address] October, [facility] [address] [id number] [place] [address] October, [facility] [address] [id number] [place] [address] October, [facility] [address] [id number] [place] [address] October, [facility] [address] [place] [address] October, [facility] [address] [id number] [place] [address] October, [facility] [place] [address] [place] [address] October, [facility] [address] [id number] [place] [address] October, Morbid obesity E66.01 ; Routine gynecolo gical examination Z01.419 and Menopausal symptoms N95.1 [facility] [address] [id number] [place] [address] October, [facility] [place] [address] [place] [address] Sep, [facility] [address] [id number] [place] [address] Sep, [facility] [address] [id number] [place] [address] Sep, [facility] [address] [id number] [place] [address] Sep, [facility] [address] [id number] [place] [address] Sep, Lower extremity edema R60.0 [facility] [address] [id number] [place] [address] Sep, [facility] [address] [facility] [id number] [address] [place] [address] Sep, Lower extremity edema R60.0 and Morbid obesity E66.01 [facility] [id number] [place] [address] Sep, [facility] [address] [id number] [place] [address] Sep, [facility] [address] [address] Aug, [facility] [id number] [place] [address] Aug, Obesities, morbid E66.01 and Morbid obes ity E66.01 [facility] [id number] [place] [address] Aug, [address] [place] [address] Jul, [facility] [id number] [place] [address] Jul, [facility] [id number] [place] [address] Jul, [facility] [id number] [place] [address] Jul, Numbness of right hand R20.0 [facility] [id number] [place] [address] Jul, [facility] [id number] [place] [address] Jul, Numbness of right hand R20.0 [facility] [id number] [place] [address] Jul, [facility] [address] [address] Jul, [facility] [id number] [place] [address] Jul, Right-sided thoracic back pain M54.6 [facility] [address] [address] Jul, [facility] [address] [address] Jul, [facility] [address] [address] Jul, [facility] [address] [address] Jul, [facility] [address] [address] Jun, [address] [address] Jun, Acute pain of right shoulder M25.511 ; N umbness of right hand R20.0 and Trapezius muscle spasm M62.838 [address] [address] Jun, [facility] [address] [address] Jun, [address] [place] [address] [address] Jun, Cough R05 ; BMI 50.0-59.9, adult Z68.43 and Morbid obesity E66.01 [address] [address] [address] Jun, [facility] [address] [address] Jun, [facility] [id number] [place] [address] Jun, BMI 45.0-49.9, adult Z68.42 and Acute non-recurrent maxillary sinusitis J01.00 [facility] [address] [facility] [id number] [address] [place] [address] Jun, Acute sinusitis J01.90 ; Dys uria R30.0 and BMI 45.0- 49.9, adult Z68.42 [address] [address] [address] Jun, [facility] [address] [address] Jun, [facility] [address] [address] May, [address] [address] May, [address] [place] [address] May, [address] [address] [address] May, [address] [address] [address] May, [address] [address] [address] Apr, Generalized social phobia F40.11 ; Trich otillomania F63.3 ; Chronic post-traumatic stress disorder (PTSD) F43.12 and BMI 45.0-49.9, adult Z68.42 [address] [address] [address] Apr, [address] [address] [address] Apr, Chronic tension-type headache, intractab le G44.221 [address] [address] [address] Apr, [facility] [id number] [place] [address] Mar, [facility] [address] [facility] [id number] [address] [place] [address] Mar, BMI 45.0-49.9, adult Z68.42 and Pimples R23.8 [place] [address] [address] Mar, [facility] [address] [address] Mar, [address] [address] [address] Mar, Decreased urination R34 ; Chronic fatigu e R53.82 ; Peripheral edema R60.9 ; Diarrhea, unspecified type R19.7 ; Non-intractable vomiting with nausea, unspecified vomiting type R11.2 ; BMI 45.0-49.9, adult Z68.42 and Chronic post- traumatic stress disorder (PTSD) F43.12 [address] [address] [address] Mar, Intestinal malabsorption, unspecified K9 0.9 ; Diarrhea, unspecified R19.7 ; Urinary urgency R39.15 ; Rectal bleeding K62.5 and Decreased urine output R34 [address] [address] [address] Mar, Decreased urine output R34 [place] [address] [address] Mar, Rectal bleeding K62.5 [place] [address] [address] Mar, Rectal bleeding K62.5 [place] [address] [address] Mar, Urinary urgency R39.15 [place] [address] [address] Mar, Urinary urgency R39.15 [place] [address] [address] Mar, Primary osteoarthritis of right knee M17 .11 and BMI 45.0-49.9, adult Z68.42 [address] [address] [address] Mar, [place] [address] [address] Feb, Left upper arm pain M79.622 [facility] [address] [address] Feb, [facility] [address] [address] Jan, Acute pain of right knee M25.561 ; Right upper quadrant abdominal pain R10.11 and BMI 45.0-49.9, adult Z68.42 [address] [address] [address] Jan, [place] [address] [address] Jan, [facility] [address] [address] Dec, [address] [address] [address] Dec, Intestinal malabsorption, unspecified K9 0.9 and Diarrhea, unspecified R19.7 [address] [address] [address] Dec, [facility] [address] [address] Dec, Strep throat J02.0 ; Intestinal malabsor ption, unspecified K90.9 ; Diarrhea, unspecified R19.7 ; Postoperative seroma involving digestive system after non-digestive system procedure K91.873 ; Hyperlipidemia, mixed E78.2 and BMI 45.0-49.9, adult Z68.42 [address] [address] [address] Dec, [place] [address] [address] Dec, Nausea R11.0 [facility] [address] [address] Dec, [facility] [address] [facility] [id number] [address] [place] [address] Dec, Sore throat J02.9 ; Strep th roat J02.0 and BMI 45.0- 49.9, adult Z68.42 [facility] [id number] [place] [address] Dec, [facility] [id number] [place] [address] Dec, [facility] [address] [address] Dec, [facility] [address] [address] Dec, [facility] [address] [address] Dec, [facility] [id number] [place] [address] Dec, [facility] [address] [place] [address] Dec, [facility] [address] [address] Dec, [facility] [address] [address] Dec, Clostridium difficile colitis A04.72 ; I ntractable vomiting with nausea, unspecified vomiting type R11.2 and BMI 45.0-49.9, adult Z68.42 [facility] [id number] [place] [address] Dec, [facility] [address] [place] [address] Nov, [facility] [address] [address] Nov, [facility] [address] [address] Nov, [facility] [address] [address] Nov, [facility] [address] [facility] [id number] [address] [place] [address] Nov, [place] [address] [address] Nov, Hyperlipidemia, mixed E78.2 [facility] [address] [facility] [id number] [address] [place] [address] Nov, Acute suppurative otitis med ia of right ear without spontaneous rupture of tympanic membrane, recurrence not specified H66.001 and BMI 45.0-49.9, adult Z68.42 [place] [address] [address] Nov, Hyperlipidemia, mixed E78.2 [place] [address] [address] Nov, [place] [address] [address] Nov, [place] [address] [address] Nov, Nodule of left lung R91.1 [place] [address] [address] 04 Nov, 2017 Medicare annual wellness visit, [...] and Encounter for immunization Z23 [place] [address] [address] October, [place] [address] [address] October, Nodule of left lung R91.1 [place] [address] [address] October, Nodule of left lung R91.1 [place] [address] [address] October, Recurrent major depressive disorder, in partial remission F33.41 ; Restless leg syndrome G25.81 ; Generalized social phobia F40.11 ; Chronic post- traumatic stress disorder (PTSD) F43.12 ; BMI 45.0-49.9, adult Z68.42 and Trichotillomania F63.3 [place] [address] [address] October, [place] [address] [address] Sep, Chronic fatigue R53.82 and BMI 45.0-49.9 , adult Z68.42 [place] [address] [address] Aug, [place] [address] [address] Jul, Restless leg syndrome G25.81 and B12 def iciency E53.8 [place] [address] [address] Jul, [place] [address] [address] Jul, [place] [address] [address] Jun, [place] [address] [address] Jun, Fatigue, unspecified type R53.83 ; Histo ry of renal cell carcinoma Z85.528 ; Chronic pancreatitis K86.1 ; Restless leg syndrome G25.81 ; Dark urine R82.99 and BMI 45.0-49.9, adult Z68.42 [place] [address] [address] Jun, [facility] [address] [address] Jun, [facility] [address] [address] Jun, [place] [address] [address] Jun, [facility] [address] [address] May, Chronic post-traumatic stress disorder ( PTSD) F43.12 ; Moderate episode of recurrent major depressive disorder F33.1 ; Trichotillomania F63.3 and Generalized social phobia F40.11 [place] [address] [address] May, [place] [address] [address] May, Chronic post-traumatic stress disorder ( PTSD) F43.12 ; Moderate episode of recurrent major depressive disorder F33.1 ; Trichotillomania F63.3 and Generalized social phobia F40.11 [place] [address] [address] May, Hyperlipidemia, mixed E78.2 ; Morbid (se nehemias) obesity due to excess calories E66.01 ; Chronic post-traumatic stress disorder (PTSD) F43.12 ; Moderate episode of recurrent major depressive disorder F33.1 ; Trichotillomania F63.3 and Generalized social phobia F40.11 [place] [address] [address] Apr, [place] [address] [address] Apr, Hyperlipidemia, mixed E78.2 ; Morbid (se nehemias) obesity due to excess calories E66.01 ; Chronic post-traumatic stress disorder (PTSD) F43.12 ; Moderate episode of recurrent major depressive disorder F33.1 ; Trichotillomania F63.3 and Generalized social phobia F40.11 [place] [address] [address] Apr, Trichotillomania F63.3 ; Generalized soc ial phobia F40.11 ; Chronic post-traumatic stress disorder (PTSD) F43.12 and Moderate episode of recurrent major depressive disorder F33.1 [place] [address] [address] Apr, [place] [address] [address] Apr, [place] [address] [address] Mar, Moderate episode of recurrent major depr essive disorder F33.1 ; Trichotillomania F63.3 ; Chronic post-traumatic stress disorder (PTSD) F43.12 ; Generalized social phobia F40.11 and Restless leg syndrome G25.81 [place] [address] [address] Mar, [place] [address] [address] Mar, [place] [address] [address] Feb, Left kidney mass N28.[address] [address] Jan, [place] [address] [address] Dec, Polydipsia R63.1 ; Chronic pancreatitis K86.1 and Fatigue, unspecified type R53.[address] [address] Nov, [place] [address] [address] Nov, [place] [address] [address] Nov, Headache around the eyes R51 [place] [address] [address] Nov, [place] [address] [address] October, STD exposure Z20.2 [place] [address] [address] October, STD exposure Z20.2 [place] [address] [address] October, Chronic post-traumatic stress disorder ( PTSD) F43.12 ; Generalized social phobia F40.11 ; Trichotillomania F63.3 and Restless leg syndrome G25.81 [place] [address] [address] October, [place] [address] [address] Sep, [place] [address] [address] Aug, [place] [address] [address] Aug, [place] [address] [address] 08 Aug, 2016 Neck mass R22.1 [place] [address] [address] Aug, Atelectasis J98.11 [place] [address] [address] 28 Jul, 2016 Hyperlipidemia, mixed E78.2 ; Atypical p neumonia J18.9 and Neck mass R22.1 [place] [address] [address] 15 Jul, 2016 Hemoptysis R04.2 [place] [address] [address] 08 Jul, 2016 Acute non-recurrent pansinusitis J01.40 ; Hemoptysis R04.2 ; Polydipsia R63.1 and Malaise R53.81 [facility] [place] [facility] [address] [place] [address] May, Other viral agents as the ca use of diseases classified elsewhere B97.89 and Acute upper respiratory infection, unspecified J06.9 [facility] [address] [address] Mar, Nausea R11.0 [facility] [address] [address] Dec, Hives L50.9 [place] [address] [address] Dec, [facility] [place] [address] [address] Dec, Cutaneous abscess of limb, u nspecified L02.419 ; Cellulitis of unspecified part of limb L03.119 ; Encounter for incision and drainage procedure Z01.89 and Encounter for recheck of abscess following i ncision and drainage Z09 [facility] [place] [address] [place] [address] 09 Dec, 2015 Abscess of leg, right L02.41 5 [place] [address] [address] [place] [id number] [place] [address] 08 Dec, 2015 Cellulitis of unspecified part of limb L 03.119 and Cutaneous abscess of limb, unspecified L02.419 [place] [address] [address] Dec, [place] [address] [address] Dec, [facility] [place] [address] [place] [id number] [address] [place] [address] Aug, [place] [address] [address] 04 Aug, 2015 [facility] [address] [id number] [place] [address] 04 Jul, 2015 Pain in unspecified wrist M2 5.539 and Back pain, thoracic M54.6 [facility] [address] [id number] [place] [address] 13 Jun, 2015 Strain of right wrist, initi al encounter S66.911A [place] [address] [address] 11 Jun, 2015 Chronic pancreatitis, unspecified pancre atitis type K86.1 ; Hirsuties L68.0 ; Morbid (severe) obesity due to excess calories E66.01 ; Chronic pancreatitis K86.1 and Asthma J45.909 [place] [address] [address] May, [place] [address] [address] May, Hyperlipidemia, mixed E78.2 and Muscle s pasm of back M62.830 [place] [address] [address] Apr, [place] [address] [address] Apr, Torticollis M43.6 [place] [address] [address] 09 Apr, 2015 Right-sided thoracic back pain M54.6 [place] [address] [address] Mar, Rash R21 [place] [address] [address] Mar, [place] [address] [address] Jan, [place] [address] [address] Dec, [facility] [id number] [place] [address] Dec, Urinary frequency 788.41 and Nocturia mo re than twice per night 788.43 [facility] [id number] [place] [address] Nov, [facility] [id number] [place] [address] Nov, [facility] [address] [id number] [place] [address] Nov, Abdominal pain 789.00 [facility] [address] [address] October, TDAP DX V06.1 [facility] [id number] [place] [address] October, [facility] [id number] [place] [address] October, Disturbance of skin sensation 782.0 ; Wr ist pain, right 719.43 ; Hyperlipidemia 272.4 and Skin lesion of face 709.9 [facility] [id number] [place] [address] Sep, [facility] [id number] [place] [address] Sep, [facility] [id number] [place] [address] Aug, [facility] [id number] [place] [address] Aug, [facility] [id number] [place] [address] Aug, [facility] [id number] [place] [address] Aug, [facility] [id number] [place] [address] Aug, [facility] [id number] [place] [address] 16 Aug, 2014 [facility] [address] [facility] [id number] [place] [address] 14 Aug, 2014 [facility] [address] [id number] [place] [address] 14 Aug, 2014 [facility] [address] [id number] [place] [address] Aug, [facility] [address] [id number] [place] [address] Aug, [facility] [address] [id number] [place] [address] Aug, [facility] [address] [id number] [place] [address] Aug, [facility] [address] [id number] [place] [address] Aug, [facility] [address] [id number] [place] [address] Aug, [facility] [address] [id number] [place] [address] Jul, [facility] [address] [id number] [place] [address] Jul, [facility] [address] [id number] [place] [address] Jul, [facility] [address] [id number] [place] [address] Jul, [facility] [address] [id number] [place] [address] Jul, [facility] [address] [id number] [place] [address] Jul, [facility] [address] [id number] [place] [address] Jun, [facility] [address] [id number] [place] [address] Jun, [facility] [address] [facility] [id number] [place] [address] Jun, [facility] [address] [facility] [id number] [place] [address] Jun, [facility] [address] [id number] [place] [address] Jun, [facility] [address] [id number] [place] [address] Jun, [facility] [address] [facility] [id number] [place] [address] Jun, [facility] [address] [id number] [place] [address] Jun, [facility] [address] [id number] [place] [address] May, [facility] [address] [id number] [place] [address] May, [facility] [address] [id number] [place] [address] May, [facility] [address] [id number] [place] [address] May, [facility] [address] [id number] [place] [address] May, [facility] [address] [id number] [place] [address] May, [facility] [address] [id number] [place] [address] May, [facility] [address] [id number] [place] [address] May, [facility] [address] [id number] [place] [address] May, [facility] [address] [id number] [place] [address] May, [facility] [address] [id number] [place] [address] May, [facility] [address] [id number] [place] [address] May, [facility] [address] [id number] [place] [address] Apr, [facility] [address] [id number] [place] [address] Apr, [facility] [address] [id number] [place] [address] Apr, [facility] [address] [id number] [place] [address] Apr, [facility] [address] [id number] [place] [address] Apr, [facility] [address] [id number] [place] [address] Apr, [facility] [address] [id number] [place] [address] Apr, [facility] [address] [id number] [place] [address] Apr, [facility] [address] [id number] [place] [address] Apr, [facility] [address] [id number] [place] [address] Apr, [facility] [address] [id number] [place] [address] Apr, [facility] [address] [id number] [place] [address] Apr, [facility] [address] [id number] [place] [address] Mar, [facility] [address] [id number] [place] [address] Mar, [facility] [address] [id number] [place] [address] Mar, [facility] [address] [id number] [place] [address] Mar, [facility] [address] [facility] [id number] [place] [address] Feb, 2013 [facility] [address] [id number] [place] [address] Feb, 2013 [facility] [address] [id number] [place] [address] Feb, 2013 [facility] [address] [facility] [id number] [place] [address] 05 Feb, 2013 [facility] [address] [facility] [id number] [place] [address] Feb, 2013 [facility] [address] [id number] [place] [address] Feb, 2013 [facility] [address] [id number] [place] [address] Jan, [facility] [address] [id number] [place] [address] Jan, [facility] [address] [id number] [place] [address] Jan, [facility] [address] [id number] [place] [address] Jan, [facility] [address] [id number] [place] [address] Jan, [facility] [address] [id number] [place] [address] Jan, [facility] [address] [facility] [id number] [place] [address] Jan, [facility] [address] [id number] [place] [address] Jan, [facility] [address] [id number] [place] [address] Jan, [facility] [address] [id number] [place] [address] Jan, [facility] [address] [id number] [place] [address] Jan, [facility] [address] [facility] [id number] [place] [address] Jan, [facility] [address] [facility] [id number] [facility] [address] Jan, [facility] [address] [facility] [id number] [facility] [address] Jan, [facility] [address] [facility] [id number] [facility] [address] Dec, [facility] [address] [facility] [id number] [place] [address] Dec, [facility] [address] [id number] [place] [address] Dec, [facility] [address] [id number] [place] [address] Dec, [facility] [address] [facility] [id number] [place] [address] Nov, [facility] [address] [id number] [facility] [address] Nov, [facility] [address] [id number] [place] [address] Nov, [facility] [address] [id number] [place] [address] Nov, [facility] [address] [facility] [id number] [place] [address] Nov, [facility] [address] [facility] [id number] [place] [address] October, [facility] [address] [facility] [id number] [place] [address] October, [facility] [address] [id number] [place] [address] October, [facility] [address] [id number] [place] [address] October, [facility] [address] [id number] [place] [address] October, [facility] [address] [facility] [id number] [place] [address] October, [facility] [address] [id number] [place] [address] October, [facility] [address] [id number] [place] [address] October, [facility] [address] [facility] [id number] [place] [address] October, [facility] [address] [id number] [place] [address] October, [facility] [address] [id number] [place] [address] October, [facility] [address] [id number] [place] [address] October, [facility] [address] [id number] [place] [address] October, [facility] [address] [id number] [place] [address] October, [facility] [address] [id number] [place] [address] Sep, [facility] [address] [id number] [place] [address] Sep, [facility] [address] [id number] [place] [address] Sep, [facility] [address] [id number] [place] [address] Sep, [facility] [address] [id number] [place] [address] Sep, [facility] [address] [id number] [place] [address] Sep, [facility] [address] [id number] [place] [address] Sep, [facility] [address] [id number] [place] [address] Sep, [facility] [address] [id number] [place] [address] Sep, [facility] [address] [id number] [place] [address] Sep, [facility] [address] [id number] [place] [address] Sep, [facility] [address] [id number] [place] [address] Sep, [facility] [address] [id number] [place] [address] Sep, [facility] [address] [id number] [place] [address] Sep, [facility] [address] [id number] [place] [address] Sep, [facility] [address] [id number] [place] [address] Aug, [facility] [address] [id number] [place] [address] Aug, [facility] [address] [id number] [place] [address] Aug, [facility] [address] [id number] [place] [address] Aug, [facility] [address] [id number] [place] [address] Jul, [facility] [address] [id number] [place] [address] Jul, [facility] [address] [id number] [place] [address] Jul, [facility] [address] [id number] [place] [address] 03 Jul, 2013 [facility] [address] [id number] [place] [address] 15 Jun, 2013 [facility] [address] [id number] [place] [address] 15 Jun, 2013 [facility] [address] [id number] [place] [address] 15 Jun, 2013 [facility] [address] [id number] [place] [address] 15 Jun, 2013 [facility] [address] [id number] [place] [address] Jun, [facility] [address] [id number] [place] [address] 10 Jun, 2013 [facility] [address] [id number] [place] [address] 08 Jun, 2013 [facility] [address] [id number] [place] [address] 08 Jun, 2013 [facility] [address] [id number] [place] [address] May, [facility] [address] [id number] [place] [address] May, [facility] [address] [id number] [place] [address] 18 May, 2013 [facility] [address] [id number] [place] [address] 18 May, 2013 [facility] [address] [id number] [place] [address] 17 May, 2013 [facility] [address] [id number] [place] [id number] 17 May, 2013 [facility] [address] [id number] [place] [address] 17 May, 2013 [facility] [address] [id number] [place] [address] 17 May, 2013 [facility] [address] [id number] [place] [address] 16 May, 2013 [facility] [address] [id number] [place] [address] 16 May, 2013 [facility] [address] [id number] [place] [address] 14 May, 2013 [facility] [address] [id number] [place] [address] 14 May, 2013 [facility] [address] [id number] [place] [address] 13 May, 2013 [facility] [address] [id number] [place] [address] 13 May, 2013 [facility] [address] [id number] [place] [address] 12 May, 2013 [facility] [address] [id number] [place] [address] 12 May, 2013 [facility] [address] [id number] [place] [address] 11 May, 2013 [facility] [address] [id number] [place] [address] May, [facility] [address] [id number] [place] [address] Apr, [facility] [address] [id number] [place] [address] Apr, [facility] [address] [id number] [place] [address] Apr, [facility] [address] [id number] [place] [address] Apr, [facility] [address] [id number] [place] [address] 27 Aug, 2012 [facility] [address] [id number] [place] [address] 18 Aug, 2012 [facility] [address] [id number] [place] [address] 06 Aug, 2012 [facility] [address] [id number] [place] [address] Aug, [facility] [address] [id number] [place] [address] Jul, [facility] [address] [id number] [place] [address] Jun, [facility] [address] [id number] [place] [address] Jun, [facility] [address] [id number] [place] [address] Jun, [facility] [address] [id number] [place] [address] Jun, [facility] [address] [id number] [place] [address] May, [facility] [id number] [place] [address] May, [facility] [address] [id number] [place] [address] May, [facility] [address] [id number] [place] [address] May, [facility] [address] [id number] [place] [address] May, [facility] [address] [id number] [place] [address] May, [facility] [address] [id number] [place] [address] May, [facility] [address] [id number] [place] [address] Apr, [facility] [address] [id number] [place] [address] Apr, [facility] [address] [id number] [place] [address] Apr, [facility] [address] [id number] [place] [address] Apr, [facility] [address] [id number] [place] [address] Apr, 2011 [facility] [address] [id number] [place] [address] Apr, [facility] [address] [id number] [place] [address] Apr, [facility] [address] [id number] [place] [address] Mar, [facility] [address] [id number] [place] [address] Mar, [facility] [address] [id number] [place] [address] Mar, [facility] [address] [id number] [place] [address] Mar, [facility] [address] [id number] [place] [address] Mar, [facility] [address] [id number] [place] [address] Mar, [facility] [address] [id number] [place] [address] Mar, [facility] [address] [id number] [place] [address] Mar, [facility] [address] [id number] [place] [address] 15 Mar, 2012 [facility] [address] [id number] [place] [address] Mar, [facility] [address] [id number] [place] [address] Mar, [facility] [address] [id number] [place] [address] Mar, [facility] [address] [id number] [place] [address] Feb, [facility] [address] [id number] [place] [address] Jan, [facility] [address] [id number] [place] [address] Jan, [facility] [address] [id number] [place] [address] Jan, [facility] [address] [id number] [place] [address] Jan, [facility] [address] [id number] [place] [address] Jan, [facility] [address] [id number] [place] [address] Dec, [facility] [address] [id number] [place] [address] Dec, [facility] [address] [id number] [place] [address] Nov, [facility] [address] [id number] [place] [address] Nov, [facility] [address] [id number] [place] [address] Nov, [facility] [address] [id number] [place] [address] October, [facility] [address] [id number] [place] [address] October, [facility] [address] [id number] [place] [address] October, [facility] [address] [id number] [place] [address] October, [facility] [address] [id number] [place] [address] October, [facility] [address] [id number] [place] [address] October, [facility] [address] [id number] [place] [address] October, [facility] [address] [id number] [place] [address] 26 Sep, 2011 [facility] [address] [id number] [place] [address] 26 Sep, 2011 [facility] [address] [id number] [place] [address] 26 Sep, 2011 [facility] [address] [id number] [place] [id number] 25 Sep, 2011 [facility] [address] [id number] [place] [address] 24 Sep, 2011 [facility] [address] [id number] [place] [address] 19 Sep, 2011 [facility] [address] [id number] [place] [address] 17 Sep, 2011 [facility] [address] [id number] [place] [address] 16 Sep, 2011 [facility] [address] [id number] [place] [address] 16 Sep, 2011 [facility] [address] [id number] [place] [address] 14 Sep, 2011 [facility] [address] [id number] [place] [address] 13 Sep, 2011 [facility] [address] [id number] [place] [address] 10 Sep, 2011 [facility] [address] [id number] [place] [address] 09 Sep, 2011 [facility] [address] [id number] [place] [address] 27 Aug, 2011 [facility] [address] [id number] [place] [address] 12 Aug, 2011 [facility] [address] [id number] [place] [address] 08 Aug, 2011 [facility] [address] [id number] [place] [address] Aug, [facility] [address] [id number] [place] [address] 28 Jul, 2011 [facility] [address] [id number] [place] [address] 22 Jul, 2011 [facility] [address] [id number] [place] [address] 16 Jul, 2011 [facility] [address] [id number] [place] [address] 15 Jul, 2011 [facility] [address] [id number] [place] [address] 14 Jul, 2011 [facility] [address] [id number] [place] [address] 10 Jul, 2011 [facility] [address] [id number] [place] [address] Jun, [facility] [address] [id number] [place] [address] Jun, [facility] [address] [id number] [place] [address] Jun, [facility] [address] [id number] [place] [address] Jun, [facility] [address] [id number] [place] [address] Jun, [facility] [address] [id number] [place] [address] May, [facility] [address] [id number] [place] [address] May, [facility] [address] [id number] [place] [address] May, [facility] [address] [id number] [place] [address] May, [facility] [address] [id number] [place] [address] May, [facility] [address] [id number] [place] [address] 07 May, 2011 [facility] [address] [id number] [place] [address] May, [facility] [address] [id number] [place] [address] Apr, [facility] [address] [id number] [place] [address] Apr, [facility] [address] [id number] [place] [address] Apr, [facility] [address] [id number] [place] [address] Apr, [facility] [address] [id number] [place] [address] Apr, [facility] [address] [id number] [place] [address] Apr, [facility] [address] [id number] [place] [address] Mar, [facility] [address] [id number] [place] [address] Mar, [facility] [address] [id number] [place] [address] Mar, [facility] [address] [id number] [place] [address] Mar, [facility] [address] [id number] [place] [address] Jan, [facility] [address] [id number] [place] [address] Dec, [facility] [id number] [place] [address] Dec, [facility] [address] [id number] [place] [address] October, [facility] [address] [id number] [place] [address] Sep, [facility] [address] [id number] [place] [address] 14 Sep, 2010 [facility] [address] [id number] [place] [address] 17 Jul, 2010 [facility] [address] [id number] [place] [address] 16 Jul, 2010 [facility] [address] [id number] [place] [address] May, [facility] [address] [id number] [place] [address] May, [facility] [address] [id number] [place] [address] May, [facility] [address] [id number] [place] [address] May, [facility] [address] [id number] [place] [address] Apr, [facility] [address] [id number] [place] [address] Apr, [facility] [address] [id number] [place] [address] Apr, [facility] [address] [id number] [place] [address] Apr, [facility] [address] [id number] [place] [address] Apr, [facility] [address] [id number] [place] [address] Mar, [facility] [address] [id number] [place] [address] 14 Mar, 2010 [facility] [address] [id number] [place] [address] 13 Mar, 2010 [facility] [address] [id number] [place] [address] 12 Mar, 2010 [facility] [id number] [place] [address] Jan, [facility] [id number] [place] [address] Dec, [facility] [id number] [place] [address] Sep, [facility] [id number] [place] [address] May, [facility] [id number] [place] [address] May, [facility] [address] [address] May, [facility] [address] [address] Apr, [facility] [address] [address] Apr, [facility] [address] [address] Apr, [facility] [id number] [place] [address] Apr, [facility] [address] [address] Apr, [facility] [id number] [place] [address] Mar, [facility] [address] [address] Mar, [facility] [id number] [place] [address] Jul, IMMUNIZATIONS No Known Immunizations SOCIAL HISTORY Never Assessed REASON FOR VISIT PLAN OF CARE VITAL SIGNS Height 62 in 2013-09-17 Weight 257.6 lbs 2013-09-17 Temperature 97.9 degrees Fahrenheit 2013-09-17 Heart Rate 100 bpm 2013-09-17 Respiratory Rate 24 2013-09-17 Blood pressure systolic 122 mmHg 2013-09-17 Blood pressure diastolic 76 mmHg 2013-09-17 MEDICATIONS Unknown Medications RESULTS No Results PROCEDURES Procedure Date Ordered Result Body Site MEASURE BLOOD OXYGEN LEVEL September 17, 2013 INSTRUCTIONS MEDICATIONS ADMINISTERED No Known Medications [...] stage 3/ removed left kidn ey 2016 Surgical History arthroscopic knee surgery- D [...] and replaced VC 10/2018 Hospitalization History Cellulitis-Via [facility] [place] Hospitalization History [facility] [place]- Abd pain 03/07/2017 Hospitalization History [facility] [place]- Abd pain 03/14/2017 Hospitalization History [facility] [place]- No bowel movement, rash 04/13/2017 Hospitalization History [facility] [place]- Abd pain r/ t kidney surgery on 04/10/17 04/17/2017 Hospitalization History [facility] [place]- Abd pain r/ t kidney surgery on 04/10/17 04/18/2017 Hospitalization History [facility] [place]- Lower abd pain 04/17 Hospitalization History [facility] [place]- Cannot urinate 05/17 Hospitalization History [facility] [place]- Pancreatitis Sx Hospitalization History [facility] [place]- Stomach pain 2017 Hospitalization History [facility] [place]- Left side pain 07/19 Hospitalization History [facility]- Incision site infec tion 08/30/2017 Hospitalization History [facility]- Post Op Serom a/Hematoma Left Abdomen. Discharged 09/04/17- Dr Daniel 09/02/2017 Hospitalization History [facility]- Right shoulder and back pain 10/22/2017 Hospitalization History [facility]- Shoulder/Back pain 11/11/2017 Hospitalization History [facility]- Right shoulder blad e pain 12/04/2017 Hospitalization History [facility]- C-Diff 12/13/2017 Hospitalization History C diff et MRSA 12/27/2017 Hospitalization History [facility] Bowel Obstruction 10/2018 Hospitalization History [facility]- Abdominal pain and nausea 01/08/2019
--- OUTSIDE RECORDS SUMMARY | 2019-10-17 05:12 | XMS REPORT ---
Author Author Janeth LOBATO Organization [facility] Address [address] [place] [address] Care Team Providers Care Property Claims Adjuster Name Role Phone BRENNA LOBATO Unavailable PROBLEMS Type Condition ICD9-CM Code [id number] Code Onset Dates Condition S tatus SNOMED Code Problem History of renal cell carcinoma Z85.528 Active 092069802 Problem Hepatic steatosis K76.0 Active 19 3087960 Problem Nodule of left lung R91.1 Active 617220337 Problem Right carpal tunnel syndrome G56.01 A ctive 731089376087560 Problem Mild obstructive sleep apnea G47.33 A ctive 46984728 Problem Moderate episode of recurrent major depressive disorder F33.1 Active 288364059 Problem Trichotillomania F63.3 Active 171 35853 Problem Morbid (severe) obesity due to excess calories E66 .01 Active 584902391 Problem Chronic tension-type headache, intractable G44.221 Active 274930065 Problem Asthma J45.909 Active 100281230 Problem Chronic pancreatitis K86.1 Active 263612588 Problem Atelectasis J98.11 Active 93871407 Problem Polydipsia R63.1 Active 91418720 Problem Chronic post-traumatic stress disorder (PTSD) F43. 12 Active 414753846 Problem Restless leg syndrome G25.81 Active 24619591 Problem Chronic fatigue R53.82 Active 8422 9001 Problem Intestinal malabsorption, unspecified K90.9 Active 21444199 Problem Primary osteoarthritis of right knee M17.11 Active 944667585033601 Problem Social phobia, generalized F40.11 Act yolanda 39542005 Problem FH: polycystic ovary Z84.2 Active 041136374 Problem Social phobia, unspecified F40.10 Act yolanda 29597547 Problem Hirsuties L68.0 Active 353369769 Problem Hyperlipidemia, mixed E78.2 Active 834551616 Problem Obesities, morbid E66.01 Active 23 3440201 Problem Menopausal symptoms N95.1 Active 90754906 Problem Conflict between patient and family Z63.9 Active 08402178 Problem Morbid obesity E66.01 Active 02405 6002 ALLERGIES No Information ENCOUNTERS Encounter Location Date Diagnosis [facility] [id number] [place] [address] Jul, [facility] [id number] [place] [address] Jun, [facility] [address] [address] Jun, [facility] [address] [address] Jun, [facility] [address] [address] May, [address] [place] [address] May, [facility] [address] [address] May, [facility] [id number] [place] [address] May, [facility] [address] [address] May, [facility] [id number] [place] [address] Apr, [facility] [address] [address] Apr, [facility] [id number] [place] [address] Apr, [facility] [address] [address] Mar, Cervical radiculopathy M54.12 [facility] [id number] [place] [address] Mar, [facility] [address] [address] Mar, [facility] [id number] [place] [address] Mar, [facility] [address] [address] Mar, [facility] [address] [address] Mar, [facility] [address] [address] Mar, [facility] [address] [address] Mar, [facility] [address] [address] Feb, Chronic cough R05 [facility] [address] [address] Feb, [facility] [address] [address] Feb, [facility] [address] [address] Feb, Cervical radiculopathy M54.12 [facility] [address] [address] Feb, Pain of left thumb M79.645 [facility] [address] [address] Feb, [facility] [address] [address] Feb, [facility] [address] [address] Feb, [facility] [address] [address] Feb, Cough present for greater than 3 weeks R 05 [facility] [address] [address] Feb, Cough present for greater than 3 weeks R 05 ; Feels sick R68.89 ; History of renal cell carcinoma Z85.528 and Morbid obesity E66.01 [facility] [address] [address] Jan, [facility] [address] [facility] [place] [id number] Jan, Oral health maintenance status requiring routine preventive dental care K08.9 ; Dental examination Z01.20 and Caries K02.9 [facility] [address] [address] Jan, Dysuria R30.0 [place] [address] [address] Jan, Dysuria R30.0 [place] [address] [address] Jan, Viral pharyngitis J02.9 and Morbid obesi ty E66.01 [facility] [address] [address] Jan, [facility] [address] [address] Jan, Left sided abdominal pain R10.9 ; Other acute postprocedural pain G89.18 ; History of renal cell carcinoma Z85.528 and Morbid obesity E66.01 [place] [address] [address] Dec, Dental examination Z01.20 [facility] [address] [address] Dec, Elevated LFTs R94.5 [place] [address] [address] Dec, Encounter for Medicare annual wellness e xam Z00.00 ; Chronic tension- type headache, intractable G44.221 ; Morbid (severe) obesity due to excess calories E66.01 ; Hyperlipidemia, mixed E78.2 ; Chronic pancreatitis K86.1 ; Asthma J45.909 ; Moderate episode of recurrent major depressive disorder F33.1 ; Chronic fatigue R53.82 and Social phobia, unspecified F40.10 [place] [address] [address] Dec, [facility] [address] [address] Dec, [place] [address] [address] Dec, [place] [address] [address] Dec, Hyperlipidemia, mixed E78.2 ; History of renal cell carcinoma Z85.528 and Restless leg syndrome G25.81 [place] [address] [address] Dec, Hyperlipidemia, mixed E78.2 ; Chronic pa ncreatitis K86.1 ; Restless leg syndrome G25.81 ; Nodule of left lung R91.1 ; History of renal cell carcinoma Z85.528 ; Leg swelling M79.89 ; Morbid obesity E66.01 and Observed sleep apnea G47.30 [place] [address] [address] Nov, [place] [address] [address] Nov, [facility] [address] [address] Nov, [facility] [address] [facility] [id number] [place] [address] Nov, Other acute postprocedural p ain G89.18 and Unspecified abdominal pain R10.9 [place] [address] [address] October, [facility] [address] [address] October, Social phobia, generalized F40.11 ; Conf lict between patient and family Z63.9 and Morbid obesity E66.01 [facility] [address] [facility] [place] [address] October, [facility] [id number] [place] [address] October, [facility] [address] [id number] [place] [address] October, [facility] [address] [facility] [place] [address] October, [facility] [place] GARC[facility]A [address] [place] [address] October, [facility] [address] [facility] [place] [address] October, [facility] [place] GARC[facility] [address] [place] [address] October, [facility] [address] [facility] [place] [address] October, Morbid obesity E66.01 ; Routine gynecolo gical examination Z01.419 and Menopausal symptoms N95.1 [facility] [address] [facility] [place] [address] October, [facility] [place] GARC[facility]A [address] [place] [address] Sep, [facility] [address] [facility] [place] [address] Sep, [facility] [id number] [place] [address] Sep, [facility] [address] [facility] [place] [address] Sep, [facility] [id number] [place] [address] Sep, Lower extremity edema R60.0 [facility] [address] [id number] [place] [address] Sep, [facility] [address] [facility] [id number] [address] [place] [address] Sep, Lower extremity edema R60.0 and Morbid obesity E66.01 [facility] [address] [address] Sep, [facility] [address] [address] Sep, [facility] [address] [address] Aug, [facility] [address] [address] Aug, Obesities, morbid E66.01 and Morbid obes ity E66.01 [facility] [id number] [place] [address] Aug, [facility] [place] GARC[facility]A [address] [place] [address] Jul, [facility] [address] [address] Jul, [facility] [address] [address] Jul, [facility] [address] [address] Jul, Numbness of right hand R20.0 [facility] [address] [address] Jul, [facility] [address] [address] Jul, Numbness of right hand R20.0 [facility] [address] [address] Jul, [facility] [address] [address] Jul, [facility] [address] [address] Jul, Right-sided thoracic back pain M54.6 [facility] [address] [address] Jul, [facility] [address] [address] Jul, [facility] [address] [address] Jul, [facility] [address] [address] Jul, [facility] [address] [address] Jun, [place] [address] [address] Jun, Acute pain of right shoulder M25.511 ; N umbness of right hand R20.0 and Trapezius muscle spasm M62.838 [place] [address] [address] Jun, [facility] [address] [address] Jun, [place] [address] [address] Jun, Cough R05 ; BMI 50.0-59.9, adult Z68.43 and Morbid obesity E66.01 [place] [address] [address] Jun, [facility] [address] [address] Jun, [facility] [address] [facility] [id number] [address] [place] [address] Jun, BMI 45.0-49.9, adult Z68.42 and Acute non-recurrent maxillary sinusitis J01.00 [facility] [address] [facility] [id number] [address] [place] [address] Jun, Acute sinusitis J01.90 ; Dys uria R30.0 and BMI 45.0- 49.9, adult Z68.42 [place] [place] [address] [address] Jun, [facility] [address] [address] Jun, [facility] [address] [address] May, [place] [place] [address] May, [place] [address] [address] May, [place] [address] [address] May, [place] [address] [address] May, [place] [address] [address] Apr, Generalized social phobia F40.11 ; Trich otillomania F63.3 ; Chronic post-traumatic stress disorder (PTSD) F43.12 and BMI 45.0-49.9, adult Z68.42 [place] [address] [address] Apr, [place] [address] [address] Apr, Chronic tension-type headache, intractab le G44.221 [place] [address] [address] Apr, [facility] [id number] [place] [address] Mar, [facility] [id number] [place] [address] Mar, BMI 45.0-49.9, adult Z68.42 and Pimples R23.8 [place] [address] [address] Mar, [facility] [address] [address] Mar, [place] [address] [address] Mar, Decreased urination R34 ; Chronic fatigu e R53.82 ; Peripheral edema R60.9 ; Diarrhea, unspecified type R19.7 ; Non-intractable vomiting with nausea, unspecified vomiting type R11.2 ; BMI 45.0-49.9, adult Z68.42 and Chronic post- traumatic stress disorder (PTSD) F43.12 [address] [place] [address] [address] Mar, Intestinal malabsorption, unspecified K9 0.9 ; Diarrhea, unspecified R19.7 ; Urinary urgency R39.15 ; Rectal bleeding K62.5 and Decreased urine output R34 [place] [address] [address] Mar, Decreased urine output R34 [place] [address] [address] Mar, Rectal bleeding K62.5 [place] [address] [address] Mar, Rectal bleeding K62.5 [place] [address] [address] Mar, Urinary urgency R39.15 [place] [address] [address] Mar, Urinary urgency R39.15 [place] [address] [address] Mar, Primary osteoarthritis of right knee M17 .11 and BMI 45.0-49.9, adult Z68.42 [place] [address] [address] Mar, [place] [id number] [place] [address] Feb, Left upper arm pain M79.622 [facility] [address] [address] Feb, [facility] [address] [address] Jan, Acute pain of right knee M25.561 ; Right upper quadrant abdominal pain R10.11 and BMI 45.0-49.9, adult Z68.42 [place] [address] [address] Jan, [place] [address] [address] Jan, [facility] [address] [address] Dec, [place] [address] [address] Dec, Intestinal malabsorption, unspecified K9 0.9 and Diarrhea, unspecified R19.7 [place] [address] [address] Dec, [place] [address] [address] Dec, Strep throat J02.0 ; Intestinal malabsor ption, unspecified K90.9 ; Diarrhea, unspecified R19.7 ; Postoperative seroma involving digestive system after non-digestive system procedure K91.873 ; Hyperlipidemia, mixed E78.2 and BMI 45.0-49.9, adult Z68.42 [facility] [address] [address] Dec, [place] [address] [address] Dec, Nausea R11.0 [facility] [address] [address] Dec, [facility] [address] [facility] [id number] [address] [place] [address] Dec, Sore throat J02.9 ; Strep th roat J02.0 and BMI 45.0- 49.9, adult Z68.42 [facility] [id number] [place] [address] Dec, [facility] [address] [address] Dec, [facility] [address] [address] Dec, [facility] [address] [address] Dec, [facility] [address] [address] Dec, [facility] [address] [address] Dec, [facility] [address] [address] Dec, [facility] [address] [address] Dec, [facility] [address] [address] Dec, Clostridium difficile colitis A04.72 ; I ntractable vomiting with nausea, unspecified vomiting type R11.2 and BMI 45.0-49.9, adult Z68.42 [facility] [id number] [place] [address] Dec, [facility] [id number] [place] [address] Nov, [facility] [address] [address] Nov, [facility] [id number] [place] [address] Nov, [facility] [address] [address] Nov, [facility] [address] [facility] [id number] [address] [address] Nov, [place] [address] [address] Nov, Hyperlipidemia, mixed E78.2 [facility] [address] [facility] [id number] [place] [address] Nov, Acute suppurative otitis med ia of right ear without spontaneous rupture of tympanic membrane, recurrence not specified H66.001 and BMI 45.0-49.9, adult Z68.42 [place] [address] [address] Nov, Hyperlipidemia, mixed E78.2 [place] [address] [address] Nov, [place] [address] [address] Nov, [place] [address] [address] Nov, Nodule of left lung R91.[address] [address] 04 Nov, 2017 Medicare annual wellness visit, [...] adult Z68.42 and Encounter for immunization Z23 [place] [address] [address] October, [address] [address] October, Nodule of left lung R91.1 [place] [address] [address] October, Nodule of left lung R91.1 [place] [address] [address] October, Recurrent major depressive disorder, in partial remission F33.41 ; Restless leg syndrome G25.81 ; Generalized social phobia F40.11 ; Chronic post- traumatic stress disorder (PTSD) F43.12 ; BMI 45.0-49.9, adult Z68.42 and Trichotillomania F63.3 [place] [address] [address] October, [place] [address] [address] Sep, Chronic fatigue R53.82 and BMI 45.0-49.9 , adult Z68.42 [place] [address] [address] Aug, [place] [address] [address] Jul, Restless leg syndrome G25.81 and B12 def iciency E53.[address] [address] Jul, [place] [address] [address] Jul, [place] [address] [address] Jun, [place] [address] [address] Jun, Fatigue, unspecified type R53.83 ; Histo ry of renal cell carcinoma Z85.528 ; Chronic pancreatitis K86.1 ; Restless leg syndrome G25.81 ; Dark urine R82.99 and BMI 45.0-49.9, adult Z68.42 [place] [id number] [place] [address] Jun, [facility] [address] [address] Jun, [facility] [address] [address] Jun, [facility] [address] [address] Jun, [facility] [address] [address] May, Chronic post-traumatic stress disorder ( PTSD) F43.12 ; Moderate episode of recurrent major depressive disorder F33.1 ; Trichotillomania F63.3 and Generalized social phobia F40.11 [place] [address] [address] May, [place] [address] [address] May, Chronic post-traumatic stress disorder ( PTSD) F43.12 ; Moderate episode of recurrent major depressive disorder F33.1 ; Trichotillomania F63.3 and Generalized social phobia F40.11 [place] [address] [address] May, Hyperlipidemia, mixed E78.2 ; Morbid (se nehemias) obesity due to excess calories E66.01 ; Chronic post-traumatic stress disorder (PTSD) F43.12 ; Moderate episode of recurrent major depressive disorder F33.1 ; Trichotillomania F63.3 and Generalized social phobia F40.11 [place] [address] [address] Apr, [place] [address] [address] Apr, Hyperlipidemia, mixed E78.2 ; Morbid (se nehemias) obesity due to excess calories E66.01 ; Chronic post-traumatic stress disorder (PTSD) F43.12 ; Moderate episode of recurrent major depressive disorder F33.1 ; Trichotillomania F63.3 and Generalized social phobia F40.11 [place] [address] [address] Apr, Trichotillomania F63.3 ; Generalized soc ial phobia F40.11 ; Chronic post-traumatic stress disorder (PTSD) F43.12 and Moderate episode of recurrent major depressive disorder F33.1 [place] [address] [address] Apr, [place] [address] [address] Apr, [place] [address] [address] Mar, Moderate episode of recurrent major depr essive disorder F33.1 ; Trichotillomania F63.3 ; Chronic post-traumatic stress disorder (PTSD) F43.12 ; Generalized social phobia F40.11 and Restless leg syndrome G25.81 [place] [address] [address] Mar, [place] [address] [address] Mar, [place] [address] [address] Feb, Left kidney mass N28.[address] [address] Jan, [place] [address] [address] Dec, Polydipsia R63.1 ; Chronic pancreatitis K86.1 and Fatigue, unspecified type R53.83 [place] [address] [address] Nov, [place] [address] [address] 13 Nov, 2016 [place] [address] [address] Nov, Headache around the eyes R51 [place] [address] [address] Nov, [place] [address] [address] October, STD exposure Z20.2 [place] [address] [address] October, STD exposure Z20.2 [place] [address] [address] October, Chronic post-traumatic stress disorder ( PTSD) F43.12 ; Generalized social phobia F40.11 ; Trichotillomania F63.3 and Restless leg syndrome G25.81 [place] [address] [address] October, [place] [address] [address] Sep, [place] [address] [address] Aug, [place] [address] [address] Aug, [place] [address] [address] Aug, Neck mass R22.1 [place] [address] [address] Aug, Atelectasis J98.11 [place] [address] [address] 28 Jul, 2016 Hyperlipidemia, mixed E78.2 ; Atypical p neumonia J18.9 and Neck mass R22.1 [place] [address] [address] 15 Jul, 2016 Hemoptysis R04.2 [place] [address] [address] 08 Jul, 2016 Acute non-recurrent pansinusitis J01.40 ; Hemoptysis R04.2 ; Polydipsia R63.1 and Malaise R53.81 [facility] [place] [id number] [place] [id number] May, Other viral agents as the ca use of diseases classified elsewhere B97.89 and Acute upper respiratory infection, unspecified J06.9 [facility] [place] [address] [address] Mar, Nausea R11.0 [facility] [place] [address] [address] Dec, Hives L50.9 [place] [address] [address] Dec, [facility] [place] [address] [address] Dec, Cutaneous abscess of limb, u nspecified L02.419 ; Cellulitis of unspecified part of limb L03.119 ; Encounter for incision and drainage procedure Z01.89 and Encounter for recheck of abscess following i ncision and drainage Z09 [facility] [place] [address] [place] [id number] Dec, Abscess of leg, right L02.41 5 [place] [address] [address] 08 Dec, 2015 Cellulitis of unspecified part of limb L 03.119 and Cutaneous abscess of limb, unspecified L02.419 [place] [place] [id number] [place] [address] Dec, [place] [address] [address] Dec, [facility] [place] [id number] [place] [address] Aug, [place] [address] [address] Aug, [facility] [address] [id number] [place] [address] Jul, Pain in unspecified wrist M2 5.539 and Back pain, thoracic M54.6 [facility] [address] [facility] [id number] [place] [address] 13 Jun, 2015 Strain of right wrist, initi al encounter S66.911A [place] [address] [address] 11 Jun, 2015 Chronic pancreatitis, unspecified pancre atitis type K86.1 ; Hirsuties L68.0 ; Morbid (severe) obesity due to excess calories E66.01 ; Chronic pancreatitis K86.1 and Asthma J45.909 [place] [address] [address] May, [place] [address] [address] May, Hyperlipidemia, mixed E78.2 and Muscle s pasm of back M62.830 [place] [address] [address] Apr, [place] [address] [address] Apr, Torticollis M43.6 [place] [address] [address] 09 Apr, 2015 Right-sided thoracic back pain M54.6 [place] [address] [address] Mar, Rash R21 [place] [address] [address] Mar, [place] [address] [address] Jan, [place] [address] [address] Dec, [facility] [address] [address] Dec, Urinary frequency 788.41 and Nocturia mo re than twice per night 788.43 [facility] [address] [address] Nov, [facility] [address] [address] Nov, [facility] [address] [address] Nov, Abdominal pain 789.00 [facility] [address] [address] October, TDAP DX V06.1 [facility] [address] [address] October, [facility] [address] [address] October, Disturbance of skin sensation 782.0 ; Wr ist pain, right 719.43 ; Hyperlipidemia 272.4 and Skin lesion of face 709.9 [facility] [address] [address] Sep, [facility] [address] [address] Sep, [facility] [address] [address] Aug, [facility] [address] [address] Aug, [facility] [address] [address] Aug, [facility] [address] [address] Aug, [facility] [address] [address] Aug, [facility] [address] [place] [address] 16 Aug, 2014 [facility] [address] [facility] [id number] [place] [address] 14 Aug, 2014 [facility] [address] [facility] [id number] [place] [address] 14 Aug, 2014 [facility] [address] [id number] [place] [address] Aug, [facility] [address] [id number] [place] [address] Aug, [facility] [address] [facility] [id number] [place] [address] Aug, [facility] [address] [id number] [place] [address] Aug, [facility] [address] [id number] [place] [address] Aug, [facility] [address] [id number] [place] [address] Aug, [facility] [address] [id number] [place] [address] Jul, [facility] [address] [id number] [place] [address] Jul, [facility] [address] [id number] [place] [address] Jul, [facility] [address] [id number] [place] [address] Jul, [facility] [address] [id number] [place] [address] Jul, [facility] [address] [id number] [place] [address] Jul, [facility] [address] [id number] [place] [address] Jun, [facility] [address] [id number] [place] [address] Jun, [facility] [address] [id number] [place] [address] Jun, [facility] [address] [id number] [place] [address] Jun, [facility] [address] [id number] [place] [address] Jun, [facility] [address] [id number] [place] [address] Jun, [facility] [address] [id number] [place] [address] Jun, [facility] [address] [id number] [place] [address] Jun, [facility] [address] [id number] [place] [address] May, [facility] [address] [id number] [place] [address] May, [facility] [address] [id number] [place] [address] May, [facility] [address] [id number] [place] [address] May, [facility] [address] [id number] [place] [address] May, [facility] [address] [id number] [place] [address] 15 May, 2014 [facility] [address] [id number] [place] [address] May, [facility] [address] [id number] [place] [address] May, [facility] [address] [id number] [place] [address] May, [facility] [address] [id number] [place] [address] May, [facility] [address] [id number] [place] [address] May, [facility] [address] [id number] [place] [address] May, [facility] [address] [id number] [place] [address] Apr, [facility] [address] [id number] [place] [address] Apr, [facility] [address] [id number] [place] [address] Apr, [facility] [address] [id number] [place] [address] Apr, [facility] [address] [id number] [place] [address] Apr, [facility] [address] [id number] [place] [address] Apr, [facility] [address] [id number] [place] [address] Apr, [facility] [address] [id number] [place] [address] Apr, [facility] [address] [id number] [place] [address] Apr, [facility] [address] [id number] [place] [address] Apr, [facility] [address] [id number] [place] [address] Apr, [facility] [address] [id number] [place] [address] Apr, [facility] [address] [id number] [place] [address] Mar, [facility] [address] [id number] [place] [address] Mar, [facility] [address] [id number] [place] [address] Mar, [facility] [address] [id number] [place] [address] 02 Mar, 2014 [facility] [address] [id number] [place] [address] 10 Feb, 2013 [facility] [address] [facility] [id number] [place] [address] Feb, 2013 [facility] [address] [facility] [id number] [place] [address] 05 Feb, 2013 [facility] [address] [facility] [id number] [place] [address] 05 Feb, 2013 [facility] [address] [facility] [id number] [place] [address] 05 Feb, 2013 [facility] [address] [id number] [place] [address] Feb, 2013 [facility] [address] [id number] [place] [address] Jan, [facility] [address] [id number] [place] [address] Jan, [facility] [address] [facility] [id number] [place] [address] Jan, [facility] [address] [id number] [place] [address] Jan, [facility] [address] [id number] [place] [address] Jan, [facility] [address] [facility] [id number] [place] [address] Jan, [facility] [address] [facility] [id number] [place] [address] Jan, [facility] [address] [id number] [place] [address] Jan, [facility] [address] [id number] [place] [address] Jan, [facility] [address] [id number] [place] [address] Jan, [facility] [address] [facility] [id number] [place] [address] Jan, [facility] [address] [id number] [place] [address] Jan, [facility] [address] [id number] [place] [address] Jan, [facility] [address] [id number] [place] [address] Jan, [facility] [address] [facility] [id number] [place] [address] Dec, [facility] [address] [id number] [place] [address] Dec, [facility] [address] [id number] [place] [address] Dec, [facility] [address] [id number] [place] [address] Dec, [facility] [address] [id number] [place] [address] Nov, [facility] [address] [id number] [place] [address] Nov, [facility] [address] [id number] [place] [address] Nov, [facility] [address] [id number] [place] [address] Nov, [facility] [address] [id number] [place] [address] Nov, [facility] [address] [id number] [place] [address] October, [facility] [address] [id number] [place] [address] October, [facility] [address] [id number] [place] [address] October, [facility] [address] [id number] [place] [address] October, [facility] [address] [id number] [place] [address] October, [facility] [address] [id number] [place] [address] October, [facility] [address] [id number] [place] [address] October, [facility] [address] [id number] [place] [address] October, [facility] [address] [facility] [id number] [place] [address] October, [facility] [address] [id number] [place] [address] October, [facility] [address] [id number] [place] [address] October, [facility] [address] [id number] [place] [address] October, [facility] [address] [id number] [place] [address] October, [facility] [address] [id number] [place] [address] October, [facility] [address] [id number] [place] [address] Sep, [facility] [address] [id number] [place] [address] Sep, [facility] [address] [id number] [place] [address] Sep, [facility] [address] [id number] [place] [address] Sep, [facility] [address] [id number] [place] [address] Sep, [facility] [address] [id number] [place] [address] Sep, [facility] [address] [facility] [id number] [place] [address] Sep, [facility] [address] [facility] [id number] [place] [address] Sep, [facility] [address] [id number] [place] [address] Sep, [facility] [address] [id number] [place] [address] Sep, [facility] [address] [id number] [place] [address] Sep, [facility] [address] [id number] [place] [address] Sep, [facility] [address] [id number] [place] [address] Sep, [facility] [address] [id number] [place] [address] Sep, [facility] [address] [id number] [place] [address] Sep, [facility] [address] [id number] [place] [address] Aug, [facility] [address] [id number] [place] [address] Aug, [facility] [address] [id number] [place] [address] Aug, [facility] [address] [id number] [place] [address] Aug, [facility] [address] [id number] [place] [address] Jul, [facility] [address] [id number] [place] [address] Jul, [facility] [address] [id number] [place] [address] Jul, [facility] [address] [id number] [place] [address] 03 Jul, 2013 [facility] [address] [id number] [place] [address] 15 Jun, 2013 [facility] [address] [id number] [place] [address] 15 Jun, 2013 [facility] [address] [id number] [place] [address] 15 Jun, 2013 [facility] [address] [id number] [place] [address] 15 Jun, 2013 [facility] [address] [id number] [place] [address] 10 Jun, 2013 [facility] [address] [id number] [place] [address] 10 Jun, 2013 [facility] [address] [id number] [place] [address] 08 Jun, 2013 [facility] [address] [id number] [place] [address] 08 Jun, 2013 [facility] [address] [id number] [place] [address] May, [facility] [address] [id number] [place] [address] May, [facility] [address] [id number] [place] [address] 18 May, 2013 [facility] [address] [id number] [place] [address] 18 May, 2013 [facility] [address] [id number] [place] [address] 17 May, 2013 [facility] [address] [id number] [place] [id number] 17 May, 2013 [facility] [address] [id number] [place] [address] 17 May, 2013 [facility] [address] [id number] [place] [address] 17 May, 2013 [facility] [address] [id number] [place] [address] 16 May, 2013 [facility] [address] [id number] [place] [address] 16 May, 2013 [facility] [address] [id number] [place] [address] 14 May, 2013 [facility] [address] [id number] [place] [address] 14 May, 2013 [facility] [address] [id number] [place] [address] 13 May, 2013 [facility] [address] [id number] [place] [address] 13 May, 2013 [facility] [address] [id number] [place] [address] 12 May, 2013 [facility] [address] [id number] [place] [address] 12 May, 2013 [facility] [address] [id number] [place] [address] May, [facility] [address] [id number] [place] [address] May, [facility] [address] [id number] [place] [address] Apr, [facility] [address] [id number] [place] [address] Apr, [facility] [address] [id number] [place] [address] Apr, [facility] [address] [id number] [place] [address] Apr, [facility] [address] [id number] [place] [address] 27 Aug, 2012 [facility] [address] [id number] [place] [address] 18 Aug, 2012 [facility] [address] [id number] [place] [address] 06 Aug, 2012 [facility] [address] [id number] [place] [address] 05 Aug, 2012 [facility] [address] [id number] [place] [address] Jul, [facility] [address] [id number] [place] [address] Jun, [facility] [address] [id number] [place] [address] Jun, [facility] [address] [id number] [place] [address] Jun, [facility] [address] [id number] [place] [address] Jun, [facility] [address] [id number] [place] [address] May, [facility] [address] [id number] [place] [address] May, [facility] [address] [id number] [place] [address] May, [facility] [address] [id number] [place] [address] May, [facility] [address] [id number] [place] [address] May, [facility] [address] [id number] [place] [address] May, [facility] [address] [id number] [place] [address] May, [facility] [address] [id number] [place] [address] Apr, [facility] [id number] [place] [address] Apr, [facility] [address] [id number] [place] [address] Apr, [facility] [address] [id number] [place] [address] Apr, [facility] [address] [id number] [place] [address] Apr, 2011 [facility] [address] [id number] [place] [address] Apr, 2011 [facility] [address] [id number] [place] [address] Apr, 2011 [facility] [address] [id number] [place] [address] Mar, [facility] [address] [id number] [place] [address] Mar, 2011 [facility] [address] [id number] [place] [address] Mar, 2011 [facility] [address] [id number] [place] [address] Mar, 2011 [facility] [address] [id number] [place] [address] Mar, [facility] [address] [id number] [place] [address] Mar, 2011 [facility] [address] [id number] [place] [address] Mar, [facility] [address] [id number] [place] [address] Mar, 2011 [facility] [address] [id number] [place] [address] 15 Mar, 2012 [facility] [address] [id number] [place] [address] 15 Mar, 2011 [facility] [address] [id number] [place] [address] 04 Mar, 2012 [facility] [address] [id number] [place] [address] 02 Mar, 2012 [facility] [address] [id number] [place] [address] 06 Feb, 2011 [facility] [address] [id number] [place] [address] Jan, [facility] [address] [id number] [place] [address] Jan, [facility] [address] [facility] [id number] [place] [address] Jan, [facility] [address] [id number] [place] [address] Jan, [facility] [address] [id number] [place] [address] Jan, [facility] [address] [facility] [id number] [place] [address] Dec, [facility] [address] [id number] [place] [address] Dec, [facility] [address] [id number] [place] [address] Nov, [facility] [address] [id number] [place] [address] Nov, [facility] [address] [id number] [place] [address] Nov, [facility] [address] [id number] [place] [address] October, [facility] [address] [id number] [place] [address] October, [facility] [address] [id number] [place] [address] October, [facility] [address] [id number] [place] [address] October, [facility] [address] [id number] [place] [address] October, [facility] [address] [id number] [place] [address] October, [facility] [address] [id number] [place] [address] October, [facility] [address] [id number] [place] [address] 26 Sep, 2011 [facility] [address] [id number] [place] [address] 26 Sep, 2011 [facility] [facility] [address] [id number] [place] [address] 26 Sep, 2011 [facility] [address] [id number] [place] [address] 25 Sep, 2011 [facility] [address] [id number] [place] [address] 24 Sep, 2011 [facility] [address] [id number] [place] [address] 19 Sep, 2011 [facility] [address] [id number] [place] [address] 17 Sep, 2011 [facility] [address] [id number] [place] [address] 16 Sep, 2011 [facility] [address] [id number] [place] [address] 16 Sep, 2011 [facility] [address] [id number] [place] [address] 14 Sep, 2011 [facility] [address] [id number] [place] [address] 13 Sep, 2011 [facility] [address] [id number] [place] [address] 10 Sep, 2011 [facility] [address] [id number] [place] [address] 09 Sep, 2011 [facility] [address] [id number] [place] [address] 27 Aug, 2011 [facility] [address] [id number] [place] [address] 12 Aug, 2011 [facility] [address] [id number] [place] [address] 08 Aug, 2011 [facility] [address] [id number] [place] [address] Aug, [facility] [address] [id number] [place] [address] 28 Jul, 2011 [facility] [address] [id number] [place] [address] 22 Jul, 2011 [facility] [address] [id number] [place] [address] 16 Jul, 2011 [facility] [address] [id number] [place] [address] 15 Jul, 2011 [facility] [address] [id number] [place] [address] 14 Jul, 2011 [facility] [address] [id number] [place] [address] 10 Jul, 2011 [facility] [address] [id number] [place] [address] Jun, [facility] [address] [id number] [place] [address] Jun, [facility] [address] [id number] [place] [address] Jun, [facility] [address] [id number] [place] [address] Jun, [facility] [address] [id number] [place] [address] Jun, [facility] [address] [id number] [place] [address] May, [facility] [address] [id number] [place] [address] May, [facility] [address] [id number] [place] [address] May, [facility] [address] [id number] [place] [address] May, [facility] [address] [id number] [place] [address] May, [facility] [address] [id number] [place] [address] 07 May, 2011 [facility] [address] [id number] [place] [address] May, [facility] [address] [id number] [place] [address] Apr, [facility] [address] [id number] [place] [address] Apr, [facility] [address] [id number] [place] [address] Apr, [facility] [address] [id number] [place] [address] Apr, [facility] [address] [id number] [place] [address] Apr, [facility] [address] [id number] [place] [address] Apr, [facility] [address] [id number] [place] [address] Mar, [facility] [address] [id number] [place] [address] Mar, [facility] [address] [id number] [place] [address] Mar, [facility] [address] [id number] [place] [address] Mar, [facility] [address] [id number] [place] [address] Jan, [facility] [address] [id number] [place] [address] Dec, [facility] [id number] [place] [address] Dec, [facility] [address] [id number] [place] [address] October, [facility] [address] [id number] [place] [address] Sep, [facility] [address] [id number] [place] [address] 14 Sep, 2010 [facility] [address] [id number] [place] [address] 17 Jul, 2010 [facility] [address] [id number] [place] [address] 16 Jul, 2010 [facility] [address] [id number] [place] [address] 31 May, 2010 [facility] [address] [id number] [place] [address] May, [facility] [address] [id number] [place] [address] 08 May, 2010 [facility] [address] [id number] [place] [address] May, [facility] [address] [id number] [place] [address] Apr, [facility] [address] [id number] [place] [address] Apr, [facility] [address] [id number] [place] [address] Apr, [facility] [address] [id number] [place] [address] Apr, [facility] [address] [id number] [place] [address] Apr, [facility] [address] [id number] [place] [address] Mar, [facility] [address] [id number] [place] [address] 14 Mar, 2010 [facility] [address] [id number] [place] [address] 13 Mar, 2010 [facility] [address] [id number] [place] [address] 12 Mar, 2010 [facility] [address] [id number] [place] [address] Jan, [facility] [address] [id number] [place] [address] Dec, [facility] [address] [id number] [place] [address] Sep, [facility] [id number] [place] [address] May, [facility] [id number] [place] [address] May, [facility] [id number] [place] [address] May, [facility] [id number] [place] [address] Apr, [facility] [id number] [place] [address] Apr, [facility] [id number] [place] [address] Apr, [facility] [id number] [place] [address] Apr, [facility] [id number] [place] [address] Apr, [facility] [id number] [place] [address] Mar, [facility] [id number] [place] [address] Mar, [facility] [address] [id number] [place] [address] Jul, IMMUNIZATIONS No Known Immunizations SOCIAL HISTORY [...] Cellulitis-[facility] Hospitalization History [facility] [place]- Abd pain 03/07/2017 Hospitalization History [facility] [place]- Abd pain 03/14/2017 Hospitalization History [facility] [place]- No bowel movement, rash 04/13/2017 Hospitalization History [facility] [place]- Abd pain r/ t kidney surgery on 04/10/17 04/17/2017 Hospitalization History [facility] [place]- Abd pain r/ t kidney surgery on 04/10/17 04/18/2017 Hospitalization History [facility] [place]- Lower abd pain 04/17 Hospitalization History [facility] [place]- Cannot urinate 05/17 Hospitalization History [facility] [place]- Pancreatitis Sx Hospitalization History [facility] [place]- Stomach pain 2017 Hospitalization History [facility] [place]- Left side pain 07/19 Hospitalization History [facility] [place]- Incision site infec tion 08/30/2017 Hospitalization History [facility]- Post Op Serom a/Hematoma Left Abdomen. Discharged 09/04/17- Dr Daniel 09/02/2017 Hospitalization History [facility] [place]- Right shoulder and back pain 10/22/2017 Hospitalization History [facility] [place]- Shoulder/Back pain 11/11/2017 Hospitalization History [facility] [place]- Right shoulder blad e pain 12/04/2017 Hospitalization History [facility] [place]- C-Diff 12/13/2017 Hospitalization History C diff et MRSA 12/27/2017 Hospitalization History [facility] Bowel Obstruction 10/2018 Hospitalization History [facility] [place]- Abdominal pain and nausea 01/08/2019
--- OUTSIDE RECORDS SUMMARY | 2019-10-17 05:12 | XMS REPORT ---
Author Author Janeth WADE [facility] Address [address] [place] [address] Care Team Providers Care Station Worker Name Role Phone ANSON WADE Unavailable PROBLEMS Type Condition ICD9-CM Code QZP56-MX Code Onset Dates Condition S tatus SNOMED Code Problem History of renal cell carcinoma Z85.528 Active 402085262 Problem Hepatic steatosis K76.0 Active 19 3293552 Problem Nodule of left lung R91.1 Active 566691403 Problem Right carpal tunnel syndrome G56.01 A ctive 289192506571276 Problem Mild obstructive sleep apnea G47.33 A ctive 39044942 Problem Moderate episode of recurrent major depressive disorder F33.1 Active 869815940 Problem Trichotillomania F63.3 Active 171 66712 Problem Morbid (severe) obesity due to excess calories E66 .01 Active 021914513 Problem Chronic tension-type headache, intractable G44.221 Active 543005019 Problem Asthma J45.909 Active 273751118 Problem Chronic pancreatitis K86.1 Active 757705717 Problem Atelectasis J98.11 Active 47089523 Problem Polydipsia R63.1 Active 39852460 Problem Chronic post-traumatic stress disorder (PTSD) F43. 12 Active 580407540 Problem Restless leg syndrome G25.81 Active 36567445 Problem Chronic fatigue R53.82 Active 8422 9001 Problem Intestinal malabsorption, unspecified K90.9 Active 34824305 Problem Primary osteoarthritis of right knee M17.11 Active 895266744261399 Problem Social phobia, generalized F40.11 Act yolanda 17361590 Problem FH: polycystic ovary Z84.2 Active 468819160 Problem Social phobia, unspecified F40.10 Act yolanda 08502148 Problem Hirsuties L68.0 Active 627957204 Problem Hyperlipidemia, mixed E78.2 Active 747710506 Problem Obesities, morbid E66.01 Active 23 1132910 Problem Menopausal symptoms N95.1 Active 07840861 Problem Conflict between patient and family Z63.9 Active 03665931 Problem Morbid obesity E66.01 Active 44800 6002 ALLERGIES No Information ENCOUNTERS Encounter Location Date Diagnosis [facility] [id number] [place] [address] Jul, [facility] [id number] [place] [address] Jun, [facility] [address] [address] Jun, [facility] [id number] [place] [address] Jun, [facility] [id number] [place] [address] May, [address] [place] [address] May, [facility] [id number] [place] [address] May, [facility] [id number] [place] [address] May, [facility] [id number] [place] [address] May, [facility] [id number] [place] [address] Apr, [facility] [id number] [place] [address] Apr, [facility] [id number] [place] [address] Apr, [facility] [id number] [place] [address] Mar, Cervical radiculopathy M54.12 [facility] [id number] [place] [address] Mar, [facility] [address] [address] Mar, [facility] [address] [address] Mar, [facility] [address] [address] Mar, [facility] [address] [address] Mar, [facility] [address] [address] Mar, [facility] [address] [address] Mar, [facility] [address] [address] Feb, Chronic cough R05 [facility] [address] [address] Feb, [facility] [address] [address] Feb, [facility] [address] [address] Feb, Cervical radiculopathy M54.12 [facility] [address] [address] 17 Feb, 2019 Pain of left thumb M79.645 [facility] [address] [address] Feb, [facility] [address] [address] Feb, [facility] [address] [address] Feb, [facility] [address] [address] Feb, Cough present for greater than 3 weeks R 05 [facility] [address] [address] Feb, Cough present for greater than 3 weeks R 05 ; Feels sick R68.89 ; History of renal cell carcinoma Z85.528 and Morbid obesity E66.01 [facility] [address] [address] Jan, [facility] [address] [facility] [place] [id number] Jan, Oral health maintenance status requiring routine preventive dental care K08.9 ; Dental examination Z01.20 and Caries K02.9 [facility] [address] [address] Jan, Dysuria R30.0 [place] [address] [address] Jan, Dysuria R30.0 [place] [address] [address] Jan, Viral pharyngitis J02.9 and Morbid obesi ty E66.01 [facility] [address] [address] Jan, [facility] [address] [address] Jan, Left sided abdominal pain R10.9 ; Other acute postprocedural pain G89.18 ; History of renal cell carcinoma Z85.528 and Morbid obesity E66.01 [place] [address] [address] Dec, Dental examination Z01.20 [facility] [address] [address] Dec, Elevated LFTs R94.5 [place] [address] [address] Dec, Encounter for Medicare annual wellness e xam Z00.00 ; Chronic tension- type headache, intractable G44.221 ; Morbid (severe) obesity due to excess calories E66.01 ; Hyperlipidemia, mixed E78.2 ; Chronic pancreatitis K86.1 ; Asthma J45.909 ; Moderate episode of recurrent major depressive disorder F33.1 ; Chronic fatigue R53.82 and Social phobia, unspecified F40.10 [place] [address] [address] Dec, [place] [address] [address] Dec, [place] [address] [address] Dec, [place] [address] [address] Dec, Hyperlipidemia, mixed E78.2 ; History of renal cell carcinoma Z85.528 and Restless leg syndrome G25.81 [place] [address] [address] Dec, Hyperlipidemia, mixed E78.2 ; Chronic pa ncreatitis K86.1 ; Restless leg syndrome G25.81 ; Nodule of left lung R91.1 ; History of renal cell carcinoma Z85.528 ; Leg swelling M79.89 ; Morbid obesity E66.01 and Observed sleep apnea G47.30 [place] [address] [address] Nov, [place] [address] [address] Nov, [place] [address] [address] Nov, [facility] [address] [facility] [id number] [place] [address] Nov, Other acute postprocedural p ain G89.18 and Unspecified abdominal pain R10.9 [place] [address] [address] October, [place] [address] [address] October, Social phobia, generalized F40.11 ; Conf lict between patient and family Z63.9 and Morbid obesity E66.01 [facility] [address] [facility] [place] [address] October, [facility] [address] [facility] [place] [address] October, [facility] [address] [facility] [place] [address] October, [facility] [address] [facility] [place] [address] October, [facility] [address] [place] [address] October, [facility] [address] [facility] [place] [address] October, [facility] [address] [place] [address] October, [facility] [address] [facility] [place] [address] October, Morbid obesity E66.01 ; Routine gynecolo gical examination Z01.419 and Menopausal symptoms N95.1 [facility] [address] [facility] [place] [address] October, [facility] [address] [place] [address] Sep, [facility] [address] [facility] [place] [address] Sep, [facility] [address] [facility] [place] [address] Sep, [facility] [address] [facility] [place] [address] Sep, [facility] [address] [facility] [place] [address] Sep, Lower extremity edema R60.0 [facility] [address] [facility] [place] [address] Sep, [facility] [address] [facility] [id number] [address] [place] [address] Sep, Lower extremity edema R60.0 and Morbid obesity E66.01 [facility] [id number] [place] [address] Sep, [facility] [address] [facility] [place] [address] Sep, [facility] [address] [address] Aug, [facility] [id number] [place] [address] Aug, Obesities, morbid E66.01 and Morbid obes ity E66.01 [facility] [id number] [place] [address] Aug, [address] [place] [address] Jul, [facility] [id number] [place] [address] Jul, [facility] [id number] [place] [address] Jul, [facility] [id number] [place] [address] Jul, Numbness of right hand R20.0 [facility] [id number] [place] [address] Jul, [facility] [id number] [place] [address] Jul, Numbness of right hand R20.0 [facility] [id number] [place] [address] Jul, [facility] [address] [address] Jul, [facility] [id number] [place] [address] Jul, Right-sided thoracic back pain M54.6 [facility] [address] [address] Jul, [facility] [address] [address] Jul, [facility] [address] [address] Jul, [facility] [address] [address] Jul, [facility] [address] [address] Jun, [place] [address] [address] Jun, Acute pain of right shoulder M25.511 ; N umbness of right hand R20.0 and Trapezius muscle spasm M62.838 [place] [address] [address] Jun, [facility] [address] [address] Jun, [place] [address] [address] Jun, Cough R05 ; BMI 50.0-59.9, adult Z68.43 and Morbid obesity E66.01 [place] [address] [address] Jun, [facility] [address] [address] Jun, [facility] [id number] [place] [address] Jun, BMI 45.0-49.9, adult Z68.42 and Acute non-recurrent maxillary sinusitis J01.00 [facility] [address] [facility] [id number] [address] [place] [address] Jun, Acute sinusitis J01.90 ; Dys uria R30.0 and BMI 45.0- 49.9, adult Z68.42 [place] [address] [address] Jun, [facility] [address] [address] Jun, [facility] [address] [address] May, [place] [address] [address] May, [place] [address] [address] May, [place] [address] [address] May, [address] [address] [address] May, [place] [address] [address] Apr, Generalized social phobia F40.11 ; Trich otillomania F63.3 ; Chronic post-traumatic stress disorder (PTSD) F43.12 and BMI 45.0-49.9, adult Z68.42 [place] [address] [address] Apr, [place] [address] [address] Apr, Chronic tension-type headache, intractab le G44.221 [place] [address] [address] Apr, [facility] [id number] [place] [address] Mar, [facility] [address] [facility] [id number] [address] [place] [address] Mar, BMI 45.0-49.9, adult Z68.42 and Pimples R23.8 [place] [address] [address] Mar, [facility] [address] [address] Mar, [place] [address] [address] Mar, Decreased urination R34 ; Chronic fatigu e R53.82 ; Peripheral edema R60.9 ; Diarrhea, unspecified type R19.7 ; Non-intractable vomiting with nausea, unspecified vomiting type R11.2 ; BMI 45.0-49.9, adult Z68.42 and Chronic post- traumatic stress disorder (PTSD) F43.12 [place] [address] [address] Mar, Intestinal malabsorption, unspecified K9 0.9 ; Diarrhea, unspecified R19.7 ; Urinary urgency R39.15 ; Rectal bleeding K62.5 and Decreased urine output R34 [place] [address] [address] Mar, Decreased urine output R34 [place] [address] [address] Mar, Rectal bleeding K62.5 [place] [address] [address] Mar, Rectal bleeding K62.5 [place] [address] [address] Mar, Urinary urgency R39.15 [place] [address] [address] Mar, Urinary urgency R39.15 [place] [address] [address] Mar, Primary osteoarthritis of right knee M17 .11 and BMI 45.0-49.9, adult Z68.42 [place] [address] [address] Mar, [place] [address] [address] Feb, Left upper arm pain M79.622 [facility] [address] [address] Feb, [facility] [address] [address] Jan, Acute pain of right knee M25.561 ; Right upper quadrant abdominal pain R10.11 and BMI 45.0-49.9, adult Z68.42 [place] [address] [address] Jan, [place] [address] [address] Jan, [facility] [address] [address] Dec, [place] [address] [address] Dec, Intestinal malabsorption, unspecified K9 0.9 and Diarrhea, unspecified R19.7 [place] [address] [address] Dec, [facility] [address] [address] Dec, Strep throat J02.0 ; Intestinal malabsor ption, unspecified K90.9 ; Diarrhea, unspecified R19.7 ; Postoperative seroma involving digestive system after non-digestive system procedure K91.873 ; Hyperlipidemia, mixed E78.2 and BMI 45.0-49.9, adult Z68.42 [place] [address] [address] Dec, [place] [address] [address] Dec, Nausea R11.0 [facility] [address] [address] Dec, [facility] [address] [facility] [id number] [address] [place] [address] Dec, Sore throat J02.9 ; Strep th roat J02.0 and BMI 45.0- 49.9, adult Z68.42 [facility] [id number] [place] [address] Dec, [facility] [id number] [place] [address] Dec, [facility] [address] [address] Dec, [facility] [address] [address] Dec, [facility] [address] [address] Dec, [facility] [id number] [place] [address] Dec, [facility] [id number] [place] [address] Dec, [facility] [address] [address] Dec, [facility] [address] [address] Dec, Clostridium difficile colitis A04.72 ; I ntractable vomiting with nausea, unspecified vomiting type R11.2 and BMI 45.0-49.9, adult Z68.42 [facility] [id number] [place] [address] Dec, [facility] [id number] [place] [address] Nov, [facility] [address] [address] Nov, [facility] [address] [address] Nov, [facility] [address] [address] Nov, [facility] [address] [facility] [id number] [address] [place] [address] Nov, [place] [address] [address] Nov, Hyperlipidemia, mixed E78.2 [facility] [address] [facility] [id number] [address] [place] [address] Nov, Acute suppurative otitis med ia of right ear without spontaneous rupture of tympanic membrane, recurrence not specified H66.001 and BMI 45.0-49.9, adult Z68.42 [place] [address] [address] Nov, Hyperlipidemia, mixed E78.2 [place] [address] [address] Nov, [place] [address] [address] Nov, [place] [address] [address] Nov, Nodule of left lung R91.1 [place] [address] [address] 04 Nov, 2017 Medicare annual wellness visit, [...] adult Z68.42 and Encounter for immunization Z23 [place] [address] [address] October, [place] [address] [address] October, Nodule of left lung R91.1 [place] [address] [address] October, Nodule of left lung R91.1 [place] [address] [address] October, Recurrent major depressive disorder, in partial remission F33.41 ; Restless leg syndrome G25.81 ; Generalized social phobia F40.11 ; Chronic post- traumatic stress disorder (PTSD) F43.12 ; BMI 45.0-49.9, adult Z68.42 and Trichotillomania F63.3 [place] [address] [address] October, [place] [address] [address] Sep, Chronic fatigue R53.82 and BMI 45.0-49.9 , adult Z68.42 [place] [address] [address] Aug, [place] [address] [address] Jul, Restless leg syndrome G25.81 and B12 def iciency E53.8 [place] [address] [address] Jul, [place] [address] [address] Jul, [place] [address] [address] Jun, [place] [address] [address] Jun, Fatigue, unspecified type R53.83 ; Histo ry of renal cell carcinoma Z85.528 ; Chronic pancreatitis K86.1 ; Restless leg syndrome G25.81 ; Dark urine R82.99 and BMI 45.0-49.9, adult Z68.42 [place] [address] [address] Jun, [facility] [address] [address] Jun, [facility] [address] [address] Jun, [place] [address] [address] Jun, [facility] [address] [address] May, Chronic post-traumatic stress disorder ( PTSD) F43.12 ; Moderate episode of recurrent major depressive disorder F33.1 ; Trichotillomania F63.3 and Generalized social phobia F40.11 [place] [address] [address] May, [place] [address] [address] May, Chronic post-traumatic stress disorder ( PTSD) F43.12 ; Moderate episode of recurrent major depressive disorder F33.1 ; Trichotillomania F63.3 and Generalized social phobia F40.11 [place] [address] [address] May, Hyperlipidemia, mixed E78.2 ; Morbid (se nehemias) obesity due to excess calories E66.01 ; Chronic post-traumatic stress disorder (PTSD) F43.12 ; Moderate episode of recurrent major depressive disorder F33.1 ; Trichotillomania F63.3 and Generalized social phobia F40.11 [place] [address] [address] Apr, [place] [address] [address] Apr, Hyperlipidemia, mixed E78.2 ; Morbid (se nehemias) obesity due to excess calories E66.01 ; Chronic post-traumatic stress disorder (PTSD) F43.12 ; Moderate episode of recurrent major depressive disorder F33.1 ; Trichotillomania F63.3 and Generalized social phobia F40.11 [place] [address] [address] Apr, Trichotillomania F63.3 ; Generalized soc ial phobia F40.11 ; Chronic post-traumatic stress disorder (PTSD) F43.12 and Moderate episode of recurrent major depressive disorder F33.1 [place] [address] [address] Apr, [place] [address] [address] Apr, [place] [address] [address] Mar, Moderate episode of recurrent major depr essive disorder F33.1 ; Trichotillomania F63.3 ; Chronic post-traumatic stress disorder (PTSD) F43.12 ; Generalized social phobia F40.11 and Restless leg syndrome G25.81 [place] [address] [address] Mar, [place] [address] [address] Mar, [place] [address] [address] Feb, Left kidney mass N28.[address] [address] Jan, [place] [address] [address] Dec, Polydipsia R63.1 ; Chronic pancreatitis K86.1 and Fatigue, unspecified type R53.[address] [address] Nov, [place] [address] [address] Nov, [place] [address] [address] Nov, Headache around the eyes R51 [place] [address] [address] Nov, [place] [address] [address] October, STD exposure Z20.2 [place] [address] [address] October, STD exposure Z20.2 [place] [address] [address] October, Chronic post-traumatic stress disorder ( PTSD) F43.12 ; Generalized social phobia F40.11 ; Trichotillomania F63.3 and Restless leg syndrome G25.81 [place] [address] [address] October, [place] [address] [address] Sep, [place] [address] [address] Aug, [place] [address] [address] Aug, [place] [address] [address] 08 Aug, 2016 Neck mass R22.1 [place] [address] [address] Aug, Atelectasis J98.11 [place] [address] [address] 28 Jul, 2016 Hyperlipidemia, mixed E78.2 ; Atypical p neumonia J18.9 and Neck mass R22.1 [place] [address] [address] 15 Jul, 2016 Hemoptysis R04.2 [place] [address] [address] 08 Jul, 2016 Acute non-recurrent pansinusitis J01.40 ; Hemoptysis R04.2 ; Polydipsia R63.1 and Malaise R53.81 [facility] [address] [place] [address] May, Other viral agents as the ca use of diseases classified elsewhere B97.89 and Acute upper respiratory infection, unspecified J06.9 [facility] [address] [address] Mar, Nausea R11.0 [facility] [address] [address] Dec, Hives L50.9 [place] [address] [address] Dec, [facility] [place] [address] [address] Dec, Cutaneous abscess of limb, u nspecified L02.419 ; Cellulitis of unspecified part of limb L03.119 ; Encounter for incision and drainage procedure Z01.89 and Encounter for recheck of abscess following i ncision and drainage Z09 [facility] [place] [address] [address] [place] [id number] 09 Dec, 2015 Abscess of leg, right L02.41 [address] [place] [address] [address] [place] [id number] [place] [address] 08 Dec, 2015 Cellulitis of unspecified part of limb L 03.119 and Cutaneous abscess of limb, unspecified L02.419 [place] [address] [address] Dec, [place] [address] [address] Dec, [facility] [place] [address] [address] [place] [id number] [place] [address] Aug, [place] [address] [address] 04 Aug, 2015 [facility] [address] [place] [place] [id number] [place] [address] 04 Jul, 2015 Pain in unspecified wrist M2 5.539 and Back pain, thoracic M54.6 [facility] [address] [place] [id number] [place] [address] 13 Jun, 2015 Strain of right wrist, initi al encounter S66.911A [place] [address] [address] 11 Jun, 2015 Chronic pancreatitis, unspecified pancre atitis type K86.1 ; Hirsuties L68.0 ; Morbid (severe) obesity due to excess calories E66.01 ; Chronic pancreatitis K86.1 and Asthma J45.909 [place] [address] [address] May, [place] [address] [address] [address] [address] May, Hyperlipidemia, mixed E78.2 and Muscle s pasm of back M62.830 [place] [address] [address] Apr, [place] [address] [address] Apr, Torticollis M43.6 [place] [address] [address] 09 Apr, 2015 Right-sided thoracic back pain M54.6 [place] [address] [address] Mar, Rash R21 [place] [address] [address] Mar, [place] [address] [address] Jan, [place] [address] [address] Dec, [facility] [id number] [place] [address] Dec, Urinary frequency 788.41 and Nocturia mo re than twice per night 788.43 [facility] [id number] [place] [address] Nov, [facility] [id number] [place] [address] Nov, [facility] [id number] [place] [address] Nov, Abdominal pain 789.00 [facility] [address] [address] October, TDAP DX V06.1 [facility] [id number] [place] [address] October, [facility] [id number] [place] [address] October, Disturbance of skin sensation 782.0 ; Wr ist pain, right 719.43 ; Hyperlipidemia 272.4 and Skin lesion of face 709.9 [facility] [id number] [place] [address] Sep, [facility] [id number] [place] [address] Sep, [facility] [id number] [place] [address] Aug, [facility] [id number] [place] [address] Aug, [facility] [id number] [place] [address] Aug, [facility] [id number] [place] [address] Aug, [facility] [id number] [place] [address] Aug, [facility] [id number] [place] [address] 16 Aug, 2014 [facility] [address] [facility] [id number] [place] [address] 14 Aug, 2014 [facility] [address] [id number] [place] [address] 14 Aug, 2014 [facility] [address] [id number] [place] [address] Aug, [facility] [address] [id number] [place] [address] Aug, [facility] [address] [id number] [place] [address] Aug, [facility] [address] [id number] [place] [address] Aug, [facility] [address] [id number] [place] [address] Aug, [facility] [address] [id number] [place] [address] Aug, [facility] [address] [id number] [place] [address] Jul, [facility] [address] [id number] [place] [address] Jul, [facility] [address] [id number] [place] [address] Jul, [facility] [address] [id number] [place] [address] Jul, [facility] [address] [id number] [place] [address] Jul, [facility] [address] [id number] [place] [address] Jul, [facility] [address] [id number] [place] [address] Jun, [facility] [address] [id number] [place] [address] Jun, [facility] [address] [facility] [id number] [place] [address] Jun, [facility] [address] [facility] [id number] [place] [address] Jun, [facility] [address] [id number] [place] [address] Jun, [facility] [address] [id number] [place] [address] Jun, [facility] [address] [facility] [id number] [place] [address] Jun, [facility] [address] [id number] [place] [address] Jun, [facility] [address] [id number] [place] [address] May, [facility] [address] [id number] [place] [address] May, [facility] [address] [id number] [place] [address] May, [facility] [address] [id number] [place] [address] May, [facility] [address] [id number] [place] [address] May, [facility] [address] [id number] [place] [address] May, [facility] [address] [id number] [place] [address] May, [facility] [address] [id number] [place] [address] May, [facility] [address] [id number] [place] [address] May, [facility] [address] [id number] [place] [address] May, [facility] [address] [id number] [place] [address] May, [facility] [address] [id number] [place] [address] May, [facility] [address] [id number] [place] [address] Apr, [facility] [address] [id number] [place] [address] Apr, [facility] [address] [id number] [place] [address] Apr, [facility] [address] [id number] [place] [address] Apr, [facility] [address] [id number] [place] [address] Apr, [facility] [address] [id number] [place] [address] Apr, [facility] [address] [id number] [place] [address] Apr, [facility] [address] [id number] [place] [address] Apr, [facility] [address] [id number] [place] [address] Apr, [facility] [address] [id number] [place] [address] Apr, [facility] [address] [id number] [place] [address] Apr, [facility] [address] [id number] [place] [address] Apr, [facility] [address] [id number] [place] [address] Mar, [facility] [address] [id number] [place] [address] Mar, [facility] [address] [id number] [place] [address] Mar, [facility] [address] [id number] [place] [address] Mar, [facility] [address] [facility] [id number] [place] [address] Feb, 2013 [facility] [address] [id number] [place] [address] Feb, 2013 [facility] [address] [id number] [place] [address] Feb, 2013 [facility] [address] [facility] [id number] [place] [address] 05 Feb, 2013 [facility] [address] [facility] [id number] [place] [address] Feb, 2013 [facility] [address] [id number] [place] [address] Feb, 2013 [facility] [address] [id number] [place] [address] Jan, [facility] [address] [id number] [place] [address] Jan, [facility] [address] [id number] [place] [address] Jan, [facility] [address] [id number] [place] [address] Jan, [facility] [address] [id number] [place] [address] Jan, [facility] [address] [id number] [place] [address] Jan, [facility] [address] [facility] [id number] [place] [address] Jan, [facility] [address] [id number] [place] [address] Jan, [facility] [address] [id number] [place] [address] Jan, [facility] [address] [id number] [place] [address] Jan, [facility] [address] [id number] [facility] [address] Jan, [facility] [address] [facility] [id number] [place] [address] Jan, [facility] [address] [facility] [id number] [facility] [address] Jan, [facility] [address] [facility] [id number] [facility] [address] Jan, [facility] [address] [facility] [id number] [facility] [place] [address] Dec, [facility] [address] [facility] [id number] [facility] [address] Dec, [facility] [address] [id number] [place] [address] Dec, [facility] [address] [id number] [facility] [address] Dec, [facility] [address] [facility] [id number] [facility] [place] [address] Nov, [facility] [address] [id number] [facility] [address] Nov, [facility] [address] [id number] [place] [address] Nov, [facility] [address] [id number] [place] [address] Nov, [facility] [address] [facility] [id number] [place] [address] Nov, [facility] [address] [facility] [id number] [place] [address] October, [facility] [address] [facility] [id number] [place] [address] October, [facility] [address] [id number] [place] [address] October, [facility] [address] [id number] [place] [address] October, [facility] [address] [id number] [facility] [address] October, [facility] [address] [facility] [id number] [place] [address] October, [facility] [address] [id number] [place] [address] October, [facility] [address] [id number] [place] [address] October, [facility] [address] [facility] [id number] [place] [address] October, [facility] [address] [id number] [place] [address] October, [facility] [address] [id number] [place] [address] October, [facility] [address] [id number] [place] [address] October, [facility] [address] [id number] [place] [address] October, [facility] [address] [id number] [place] [address] October, [facility] [address] [id number] [place] [address] Sep, [facility] [address] [id number] [place] [address] Sep, [facility] [address] [id number] [place] [address] Sep, [facility] [address] [id number] [place] [address] Sep, [facility] [address] [id number] [place] [address] Sep, [facility] [address] [id number] [place] [address] Sep, [facility] [address] [id number] [place] [address] Sep, [facility] [address] [id number] [place] [address] Sep, [facility] [address] [id number] [place] [address] Sep, [facility] [address] [id number] [place] [address] Sep, [facility] [address] [id number] [place] [address] Sep, [facility] [address] [id number] [place] [address] Sep, [facility] [address] [id number] [place] [address] Sep, [facility] [address] [id number] [place] [address] Sep, [facility] [address] [id number] [place] [address] Sep, [facility] [address] [id number] [place] [address] Aug, [facility] [address] [id number] [place] [address] Aug, [facility] [address] [id number] [place] [address] Aug, [facility] [address] [id number] [place] [address] Aug, [facility] [address] [id number] [place] [address] Jul, [facility] [address] [id number] [place] [address] Jul, [facility] [address] [id number] [place] [address] Jul, [facility] [address] [id number] [place] [address] 03 Jul, 2013 [facility] [address] [id number] [place] [address] 15 Jun, 2013 [facility] [address] [id number] [place] [address] 15 Jun, 2013 [facility] [address] [id number] [place] [address] 15 Jun, 2013 [facility] [address] [id number] [place] [address] 15 Jun, 2013 [facility] [address] [id number] [place] [address] Jun, [facility] [address] [id number] [place] [address] 10 Jun, 2013 [facility] [address] [id number] [place] [address] 08 Jun, 2013 [facility] [address] [id number] [place] [address] 08 Jun, 2013 [facility] [address] [id number] [place] [address] May, [facility] [address] [id number] [place] [address] May, [facility] [address] [id number] [place] [address] 18 May, 2013 [facility] [address] [id number] [place] [address] 18 May, 2013 [facility] [address] [id number] [place] [address] 17 May, 2013 [facility] [address] [id number] [place] [id number] 17 May, 2013 [facility] [address] [id number] [place] [address] 17 May, 2013 [facility] [address] [id number] [place] [address] 17 May, 2013 [facility] [address] [id number] [place] [address] 16 May, 2013 [facility] [address] [id number] [place] [address] 16 May, 2013 [facility] [address] [id number] [place] [address] 14 May, 2013 [facility] [address] [id number] [place] [address] 14 May, 2013 [facility] [address] [id number] [place] [address] 13 May, 2013 [facility] [address] [id number] [place] [address] 13 May, 2013 [facility] [address] [id number] [place] [address] 12 May, 2013 [facility] [address] [id number] [place] [address] 12 May, 2013 [facility] [address] [id number] [place] [address] 11 May, 2013 [facility] [address] [id number] [place] [address] May, [facility] [address] [id number] [place] [address] Apr, [facility] [address] [id number] [place] [address] Apr, [facility] [address] [id number] [place] [address] Apr, [facility] [address] [id number] [place] [address] Apr, [facility] [address] [id number] [place] [address] 27 Aug, 2012 [facility] [address] [id number] [place] [address] 18 Aug, 2012 [facility] [address] [id number] [place] [address] 06 Aug, 2012 [facility] [address] [id number] [place] [address] Aug, [facility] [address] [id number] [place] [address] Jul, [facility] [address] [id number] [place] [address] Jun, [facility] [address] [id number] [place] [address] Jun, [facility] [address] [id number] [place] [address] Jun, [facility] [address] [id number] [place] [address] Jun, [facility] [address] [id number] [place] [address] May, [facility] [id number] [place] [address] May, [facility] [address] [id number] [place] [address] May, [facility] [address] [id number] [place] [address] May, [facility] [address] [id number] [place] [address] May, [facility] [address] [id number] [place] [address] May, [facility] [address] [id number] [place] [address] May, [facility] [address] [id number] [place] [address] Apr, [facility] [address] [id number] [place] [address] Apr, [facility] [address] [id number] [place] [address] Apr, [facility] [address] [id number] [place] [address] Apr, [facility] [address] [id number] [place] [address] Apr, 2011 [facility] [address] [id number] [place] [address] Apr, [facility] [address] [id number] [place] [address] Apr, [facility] [address] [id number] [place] [address] Mar, [facility] [address] [id number] [place] [address] Mar, [facility] [address] [id number] [place] [address] Mar, [facility] [address] [id number] [place] [address] Mar, [facility] [address] [id number] [place] [address] Mar, [facility] [address] [id number] [place] [address] Mar, [facility] [address] [id number] [place] [address] Mar, [facility] [address] [id number] [place] [address] Mar, [facility] [address] [id number] [place] [address] 15 Mar, 2012 [facility] [address] [id number] [place] [address] Mar, [facility] [address] [id number] [place] [address] Mar, [facility] [address] [id number] [place] [address] Mar, [facility] [address] [id number] [place] [address] Feb, [facility] [address] [id number] [place] [address] Jan, [facility] [address] [id number] [place] [address] Jan, [facility] [address] [id number] [place] [address] Jan, [facility] [address] [id number] [place] [address] Jan, [facility] [address] [id number] [place] [address] Jan, [facility] [address] [id number] [place] [address] Dec, [facility] [address] [id number] [place] [address] Dec, [facility] [address] [id number] [place] [address] Nov, [facility] [address] [id number] [place] [address] Nov, [facility] [address] [id number] [place] [address] Nov, [facility] [address] [id number] [place] [address] October, [facility] [address] [id number] [place] [address] October, [facility] [address] [id number] [place] [address] October, [facility] [address] [id number] [place] [address] October, [facility] [address] [id number] [place] [address] October, [facility] [address] [id number] [place] [address] October, [facility] [address] [id number] [place] [address] October, [facility] [address] [id number] [place] [address] 26 Sep, 2011 [facility] [address] [id number] [place] [address] 26 Sep, 2011 [facility] [address] [id number] [place] [address] 26 Sep, 2011 [facility] [address] [id number] [place] [address] 25 Sep, 2011 [facility] [address] [id number] [place] [address] 24 Sep, 2011 [facility] [address] [id number] [place] [address] 19 Sep, 2011 [facility] [address] [id number] [place] [address] 17 Sep, 2011 [facility] [address] [id number] [place] [address] 16 Sep, 2011 [facility] [address] [id number] [place] [address] 16 Sep, 2011 [facility] [address] [id number] [place] [address] 14 Sep, 2011 [facility] [address] [id number] [place] [address] 13 Sep, 2011 [facility] [address] [id number] [place] [address] 10 Sep, 2011 [facility] [address] [id number] [place] [address] 09 Sep, 2011 [facility] [address] [id number] [place] [address] 27 Aug, 2011 [facility] [address] [id number] [place] [address] 12 Aug, 2011 [facility] [address] [id number] [place] [address] 08 Aug, 2011 [facility] [address] [id number] [place] [address] Aug, [facility] [address] [id number] [place] [address] 28 Jul, 2011 [facility] [address] [id number] [place] [address] 22 Jul, 2011 [facility] [address] [id number] [place] [address] 16 Jul, 2011 [facility] [address] [id number] [place] [address] 15 Jul, 2011 [facility] [address] [id number] [place] [address] 14 Jul, 2011 [facility] [address] [id number] [place] [address] 10 Jul, 2011 [facility] [address] [id number] [place] [address] Jun, [facility] [address] [id number] [place] [address] Jun, [facility] [address] [id number] [place] [address] Jun, [facility] [address] [id number] [place] [address] Jun, [facility] [address] [id number] [place] [address] Jun, [facility] [address] [id number] [place] [address] May, [facility] [address] [id number] [place] [address] May, [facility] [address] [id number] [place] [address] May, [facility] [address] [id number] [place] [address] May, [facility] [address] [id number] [place] [address] May, [facility] [address] [id number] [place] [address] 07 May, 2011 [facility] [address] [id number] [place] [address] May, [facility] [address] [id number] [place] [address] Apr, [facility] [address] [id number] [place] [address] Apr, [facility] [facility] [address] [id number] [place] [address] Apr, [facility] [address] [facility] [id number] [place] [address] Apr, [facility] [address] [id number] [place] [address] Apr, [facility] [address] [id number] [place] [address] Apr, [facility] [address] [id number] [place] [address] Mar, [facility] [address] [id number] [place] [address] Mar, [facility] [address] [id number] [place] [address] Mar, [facility] [address] [id number] [place] [address] Mar, [facility] [address] [id number] [place] [address] Jan, [facility] [address] [id number] [place] [address] Dec, [facility] [id number] [place] [address] Dec, [facility] [address] [id number] [place] [address] October, [facility] [address] [id number] [place] [address] Sep, [facility] [address] [id number] [place] [address] 14 Sep, 2010 [facility] [address] [id number] [place] [address] 17 Jul, 2010 [facility] [address] [id number] [place] [address] 16 Jul, 2010 [facility] [address] [id number] [place] [address] May, [facility] [address] [id number] [place] [address] May, [facility] [address] [id number] [place] [address] May, [facility] [address] [id number] [place] [address] May, [facility] [address] [id number] [place] [address] Apr, [facility] [address] [id number] [place] [address] Apr, [facility] [address] [id number] [place] [address] Apr, [facility] [address] [id number] [place] [address] Apr, [facility] [address] [id number] [place] [address] Apr, [facility] [address] [id number] [place] [address] Mar, [facility] [address] [id number] [place] [address] 14 Mar, 2010 [facility] [address] [id number] [place] [address] 13 Mar, 2010 [facility] [address] [id number] [place] [address] 12 Mar, 2010 [facility] [id number] [place] [address] Jan, [facility] [id number] [place] [address] Dec, [facility] [id number] [place] [address] Sep, [facility] [id number] [place] [address] May, [facility] [id number] [place] [address] May, [facility] [address] [address] May, [facility] [address] [address] Apr, [facility] [address] [address] Apr, [facility] [address] [address] Apr, [facility] [id number] [place] [address] Apr, [facility] [address] [address] Apr, [facility] [id number] [place] [address] Mar, [facility] [address] [address] Mar, [facility] [id number] [place] [address] Jul, IMMUNIZATIONS No Known Immunizations SOCIAL HISTORY Never Assessed REASON FOR VISIT PLAN OF CARE VITAL SIGNS Height 62 in 2013-09-23 Weight 258.7 lbs 2013-09-23 Temperature 98.2 degrees Fahrenheit 2013-09-23 Heart Rate 90 bpm 2013-09-23 Respiratory Rate 20 2013-09-23 Blood pressure systolic 120 mmHg 2013-09-23 Blood pressure diastolic 78 mmHg 2013-09-23 MEDICATIONS Unknown Medications RESULTS No Results PROCEDURES Procedure Date Ordered Result Body Site X-RAY EXAM OF ELBOW September 23, 2013 INSTRUCTIONS MEDICATIONS ADMINISTERED No Known Medications [...] and replaced VC 10/2018 Hospitalization History Cellulitis-[facility] Hospitalization History [facility]- Abd pain 03/07/2017 Hospitalization History [facility]- Abd pain 03/14/2017 Hospitalization History [facility]- No bowel movement, rash 04/13/2017 Hospitalization History [facility]- Abd pain r/ t kidney surgery on 04/10/17 04/17/2017 Hospitalization History [facility]- Abd pain r/ t kidney surgery on 04/10/17 04/18/2017 Hospitalization History [facility]- Lower abd pain 04/17 Hospitalization History [facility]- Cannot urinate 05/17 Hospitalization History [facility]- Pancreatitis Sx Hospitalization History [facility]- Stomach pain 2017 Hospitalization History [facility]- Left side pain 07/19 Hospitalization History [facility]- Incision site infec tion 08/30/2017 Hospitalization History [facility]- Post Op Serom a/Hematoma Left Abdomen. Discharged 09/04/17- Dr Daniel 09/02/2017 Hospitalization History [facility]- Right shoulder and back pain 10/22/2017 Hospitalization History [facility]- Shoulder/Back pain 11/11/2017 Hospitalization History [facility]- Right shoulder blad e pain 12/04/2017 Hospitalization History [facility]- C-Diff 12/13/2017 Hospitalization History C diff et MRSA 12/27/2017 Hospitalization History [facility] Bowel Obstruction 10/2018 Hospitalization History [facility]- Abdominal pain and nausea 01/08/2019
--- OUTSIDE RECORDS SUMMARY | 2019-10-17 05:13 | XMS REPORT ---
Author Author Janeth GIBBS [facility] Address [address] [place] [address] Care Team Providers Care Multimedia Production Assistant Name Role Phone SAI CARMEN Unavailable PROBLEMS Type Condition ICD9-CM Code ZHS37-GJ Code Onset Dates Condition S tatus SNOMED Code Problem History of renal cell carcinoma Z85.528 Active 883160666 Problem Hepatic steatosis K76.0 Active 19 7410696 Problem Nodule of left lung R91.1 Active 776424990 Problem Right carpal tunnel syndrome G56.01 A ctive 518570673269822 Problem Mild obstructive sleep apnea G47.33 A ctive 60030171 Problem Moderate episode of recurrent major depressive disorder F33.1 Active 711223771 Problem Trichotillomania F63.3 Active 171 97700 Problem Morbid (severe) obesity due to excess calories E66 .01 Active 341359572 Problem Chronic tension-type headache, intractable G44.221 Active 339205383 Problem Asthma J45.909 Active 317254092 Problem Chronic pancreatitis K86.1 Active 821462631 Problem Atelectasis J98.11 Active 19092635 Problem Polydipsia R63.1 Active 92092812 Problem Chronic post-traumatic stress disorder (PTSD) F43. 12 Active 395838937 Problem Restless leg syndrome G25.81 Active 30643501 Problem Chronic fatigue R53.82 Active 8422 9001 Problem Intestinal malabsorption, unspecified K90.9 Active 86058133 Problem Primary osteoarthritis of right knee M17.11 Active 097814240065303 Problem Social phobia, generalized F40.11 Act yolanda 61384275 Problem FH: polycystic ovary Z84.2 Active 407197249 Problem Social phobia, unspecified F40.10 Act yolanda 45587726 Problem Hirsuties L68.0 Active 579661678 Problem Hyperlipidemia, mixed E78.2 Active 363786967 Problem Obesities, morbid E66.01 Active 23 5857051 Problem Menopausal symptoms N95.1 Active 50774848 Problem Conflict between patient and family Z63.9 Active 35613104 Problem Morbid obesity E66.01 Active 65329 6002 ALLERGIES No Information ENCOUNTERS Encounter Location Date Diagnosis [facility] [id number] [place] [address] Jul, [facility] [address] [address] Jun, [facility] [address] [address] Jun, [facility] [address] [address] Jun, [facility] [address] [address] May, [address] [place] [address] May, [facility] [address] [address] May, [facility] [id number] [place] [address] May, [facility] [address] [address] May, [facility] [address] [address] Apr, [facility] [address] [address] Apr, [facility] [id number] [place] [address] Apr, [facility] [address] [address] Mar, Cervical radiculopathy M54.12 [facility] [id number] [place] [address] Mar, [facility] [address] [address] Mar, [facility] [id number] [place] [address] Mar, [facility] [address] [address] Mar, [facility] [address] [address] Mar, [facility] [address] [address] Mar, [facility] [address] [address] Mar, [facility] [address] [address] Feb, Chronic cough R05 [facility] [address] [address] Feb, [facility] [address] [address] Feb, [facility] [address] [address] Feb, Cervical radiculopathy M54.12 [facility] [address] [address] 17 Feb, 2019 Pain of left thumb M79.645 [facility] [address] [address] Feb, [facility] [address] [address] Feb, [facility] [address] [address] Feb, [facility] [address] [address] Feb, Cough present for greater than 3 weeks R 05 [facility] [address] [address] Feb, Cough present for greater than 3 weeks R 05 ; Feels sick R68.89 ; History of renal cell carcinoma Z85.528 and Morbid obesity E66.01 [facility] [address] [address] Jan, [facility] [address] [facility] [place] [id number] Jan, Oral health maintenance status requiring routine preventive dental care K08.9 ; Dental examination Z01.20 and Caries K02.9 [facility] [address] [address] Jan, Dysuria R30.0 [facility] [address] [address] Jan, Dysuria R30.0 [place] [address] [address] Jan, Viral pharyngitis J02.9 and Morbid obesi ty E66.01 [facility] [address] [address] Jan, [facility] [address] [address] Jan, Left sided abdominal pain R10.9 ; Other acute postprocedural pain G89.18 ; History of renal cell carcinoma Z85.528 and Morbid obesity E66.01 [place] [address] [address] Dec, Dental examination Z01.20 [facility] [address] [address] Dec, Elevated LFTs R94.5 [place] [address] [address] Dec, Encounter for Medicare annual wellness e xam Z00.00 ; Chronic tension- type headache, intractable G44.221 ; Morbid (severe) obesity due to excess calories E66.01 ; Hyperlipidemia, mixed E78.2 ; Chronic pancreatitis K86.1 ; Asthma J45.909 ; Moderate episode of recurrent major depressive disorder F33.1 ; Chronic fatigue R53.82 and Social phobia, unspecified F40.10 [place] [address] [address] Dec, [place] [address] [address] Dec, [place] [address] [address] Dec, [place] [address] [address] Dec, Hyperlipidemia, mixed E78.2 ; History of renal cell carcinoma Z85.528 and Restless leg syndrome G25.81 [place] [address] [address] Dec, Hyperlipidemia, mixed E78.2 ; Chronic pa ncreatitis K86.1 ; Restless leg syndrome G25.81 ; Nodule of left lung R91.1 ; History of renal cell carcinoma Z85.528 ; Leg swelling M79.89 ; Morbid obesity E66.01 and Observed sleep apnea G47.30 [place] [address] [address] Nov, [place] [address] [address] Nov, [place] [address] [address] Nov, [facility] [address] [facility] [id number] [place] [address] Nov, Other acute postprocedural p ain G89.18 and Unspecified abdominal pain R10.9 [place] [address] [address] October, [place] [address] [address] October, Social phobia, generalized F40.11 ; Conf lict between patient and family Z63.9 and Morbid obesity E66.01 [facility] [address] [id number] [place] [address] October, [facility] [address] [id number] [place] [address] October, [facility] [address] [id number] [place] [address] October, [facility] [address] [id number] [place] [address] October, [facility] [place] [address] [place] [address] October, [facility] [id number] [place] [address] October, [facility] [place] [address] [place] [address] October, [facility] [address] [id number] [place] [address] October, Morbid obesity E66.01 ; Routine gynecolo gical examination Z01.419 and Menopausal symptoms N95.1 [facility] [address] [id number] [place] [address] October, [facility] [place] [address] [place] [address] Sep, [facility] [address] [id number] [place] [address] Sep, [facility] [id number] [place] [address] Sep, [facility] [address] [id number] [place] [address] Sep, [facility] [id number] [place] [address] Sep, Lower extremity edema R60.0 [facility] [address] [id number] [place] [address] Sep, [facility] [address] [facility] [id number] [address] [place] [address], [place] [address] 08 Sep, 2018 Lower extremity edema R60.0 and Morbid obesity E66.01 [facility] [id number] [place] [address] Sep, [facility] [id number] [place] [address] Sep, [facility] [address] [address] Aug, [facility] [id number] [place] [address] Aug, Obesities, morbid E66.01 and Morbid obes ity E66.01 [facility] [id number] [place] [address] Aug, [address] [place] [address] Jul, [facility] [id number] [place] [address] Jul, [facility] [id number] [place] [address] Jul, [facility] [id number] [place] [address] Jul, Numbness of right hand R20.0 [facility] [id number] [place] [address] Jul, [facility] [id number] [place] [address] Jul, Numbness of right hand R20.0 [facility] [id number] [place] [address] Jul, [facility] [address] [address] Jul, [facility] [id number] [place] [address] Jul, Right-sided thoracic back pain M54.6 [facility] [address] [address] Jul, [facility] [address] [address] Jul, [facility] [address] [address] Jul, [facility] [address] [address] Jul, [facility] [address] [address] Jun, [facility] [address] [address] Jun, Acute pain of right shoulder M25.511 ; N umbness of right hand R20.0 and Trapezius muscle spasm M62.838 [place] [address] [address] Jun, [facility] [address] [address] Jun, [place] [address] [address] Jun, Cough R05 ; BMI 50.0-59.9, adult Z68.43 and Morbid obesity E66.01 [place] [address] [address] Jun, [facility] [address] [address] Jun, [facility] [address] [facility] [id number] [address] [place] [address] Jun, BMI 45.0-49.9, adult Z68.42 and Acute non-recurrent maxillary sinusitis J01.00 [facility] [address] [facility] [id number] [address] [place] [address] Jun, Acute sinusitis J01.90 ; Dys uria R30.0 and BMI 45.0- 49.9, adult Z68.42 [place] [address] [address] Jun, [place] [address] [address] Jun, [place] [address] [address] May, [place] [address] [address] May, [place] [address] [address] May, [address] [address] [address] May, [place] [address] [address] May, [place] [address] [address] Apr, Generalized social phobia F40.11 ; Trich otillomania F63.3 ; Chronic post-traumatic stress disorder (PTSD) F43.12 and BMI 45.0-49.9, adult Z68.42 [place] [address] [address] Apr, [place] [address] [address] Apr, Chronic tension-type headache, intractab le G44.221 [place] [address] [address] Apr, [facility] [id number] [place] [address] Mar, [facility] N [facility] [id number] [address] [place] [address] Mar, BMI 45.0-49.9, adult Z68.42 and Pimples R23.8 [place] [address] [address] Mar, [facility] [address] [address] Mar, [facility] [address] [address] Mar, Decreased urination R34 ; Chronic fatigu e R53.82 ; Peripheral edema R60.9 ; Diarrhea, unspecified type R19.7 ; Non-intractable vomiting with nausea, unspecified vomiting type R11.2 ; BMI 45.0-49.9, adult Z68.42 and Chronic post- traumatic stress disorder (PTSD) F43.12 [place] [address] [address] Mar, Intestinal malabsorption, unspecified K9 0.9 ; Diarrhea, unspecified R19.7 ; Urinary urgency R39.15 ; Rectal bleeding K62.5 and Decreased urine output R34 [place] [address] [address] Mar, Decreased urine output R34 [place] [address] [address] Mar, Rectal bleeding K62.5 [place] [address] [address] Mar, Rectal bleeding K62.5 [place] [address] [address] Mar, Urinary urgency R39.15 [place] [address] [address] Mar, Urinary urgency R39.15 [place] [address] [address] Mar, Primary osteoarthritis of right knee M17 .11 and BMI 45.0-49.9, adult Z68.42 [place] [address] [address] Mar, [place] [address] [address] Feb, Left upper arm pain M79.622 [place] [address] [address] Feb, [facility] [address] [address] Jan, Acute pain of right knee M25.561 ; Right upper quadrant abdominal pain R10.11 and BMI 45.0-49.9, adult Z68.42 [place] [address] [address] Jan, [place] [address] [address] Jan, [place] [address] [address] Dec, [place] [address] [address] Dec, Intestinal malabsorption, unspecified K9 0.9 and Diarrhea, unspecified R19.7 [place] [address] [address] Dec, [place] [address] [address] Dec, Strep throat J02.0 ; Intestinal malabsor ption, unspecified K90.9 ; Diarrhea, unspecified R19.7 ; Postoperative seroma involving digestive system after non-digestive system procedure K91.873 ; Hyperlipidemia, mixed E78.2 and BMI 45.0-49.9, adult Z68.42 [place] [address] [address] Dec, [place] [address] [address] Dec, Nausea R11.0 [facility] [address] [address] Dec, [facility] [address] [facility] [id number] [address] [place] [address] Dec, Sore throat J02.9 ; Strep th roat J02.0 and BMI 45.0- 49.9, adult Z68.42 [facility] [id number] [place] [address] Dec, [facility] [address] [address] Dec, [facility] [address] [address] Dec, [facility] [address] [address] Dec, [facility] [address] [address] Dec, [facility] [address] [address] Dec, [facility] [address] [address] Dec, [facility] [address] [address] Dec, [facility] [address] [address] Dec, Clostridium difficile colitis A04.72 ; I ntractable vomiting with nausea, unspecified vomiting type R11.2 and BMI 45.0-49.9, adult Z68.42 [facility] [id number] [place] [address] Dec, [facility] [id number] [place] [address] Nov, [facility] [address] [address] Nov, [facility] [address] [address] Nov, [facility] [address] [address] Nov, [facility] [address] [facility] [id number] [address] [place] [address] Nov, [place] [address] [address] Nov, Hyperlipidemia, mixed E78.2 [facility] [address] [facility] [id number] [address] [place] [address] Nov, Acute suppurative otitis med ia of right ear without spontaneous rupture of tympanic membrane, recurrence not specified H66.001 and BMI 45.0-49.9, adult Z68.[address] [address] Nov, Hyperlipidemia, mixed E78.2 [place] [address] [address] Nov, [address] [address] Nov, [place] [address] [address] Nov, Nodule of left lung R91.[address] [address] 04 Nov, 2017 Medicare annual wellness visit, [...] adult Z68.42 and Encounter for immunization Z23 [address] [address] October, [address] [address] October, Nodule of left lung R91.1 [place] [address] [address] October, Nodule of left lung R91.1 [place] [address] [address] October, Recurrent major depressive disorder, in partial remission F33.41 ; Restless leg syndrome G25.81 ; Generalized social phobia F40.11 ; Chronic post- traumatic stress disorder (PTSD) F43.12 ; BMI 45.0-49.9, adult Z68.42 and Trichotillomania F63.3 [place] [address] [address] October, [place] [address] [address] Sep, Chronic fatigue R53.82 and BMI 45.0-49.9 , adult Z68.42 [place] [address] [address] Aug, [place] [address] [address] Jul, Restless leg syndrome G25.81 and B12 def iciency E53.[address] [address] Jul, [place] [address] [address] Jul, [place] [address] [address] Jun, [place] [address] [address] Jun, Fatigue, unspecified type R53.83 ; Histo ry of renal cell carcinoma Z85.528 ; Chronic pancreatitis K86.1 ; Restless leg syndrome G25.81 ; Dark urine R82.99 and BMI 45.0-49.9, adult Z68.42 [place] [id number] [place] [address] Jun, [facility] [address] [address] Jun, [facility] [address] [address] Jun, [facility] [address] [address] Jun, [facility] [address] [address] May, Chronic post-traumatic stress disorder ( PTSD) F43.12 ; Moderate episode of recurrent major depressive disorder F33.1 ; Trichotillomania F63.3 and Generalized social phobia F40.11 [place] [address] [address] May, [place] [address] [address] May, Chronic post-traumatic stress disorder ( PTSD) F43.12 ; Moderate episode of recurrent major depressive disorder F33.1 ; Trichotillomania F63.3 and Generalized social phobia F40.11 [place] [address] [address] May, Hyperlipidemia, mixed E78.2 ; Morbid (se nehemias) obesity due to excess calories E66.01 ; Chronic post-traumatic stress disorder (PTSD) F43.12 ; Moderate episode of recurrent major depressive disorder F33.1 ; Trichotillomania F63.3 and Generalized social phobia F40.11 [place] [address] [address] Apr, [place] [address] [address] Apr, Hyperlipidemia, mixed E78.2 ; Morbid (se nehemias) obesity due to excess calories E66.01 ; Chronic post-traumatic stress disorder (PTSD) F43.12 ; Moderate episode of recurrent major depressive disorder F33.1 ; Trichotillomania F63.3 and Generalized social phobia F40.11 [place] [address] [address] Apr, Trichotillomania F63.3 ; Generalized soc ial phobia F40.11 ; Chronic post-traumatic stress disorder (PTSD) F43.12 and Moderate episode of recurrent major depressive disorder F33.1 [place] [address] [address] Apr, [place] [address] [address] Apr, [place] [address] [address] Mar, Moderate episode of recurrent major depr essive disorder F33.1 ; Trichotillomania F63.3 ; Chronic post-traumatic stress disorder (PTSD) F43.12 ; Generalized social phobia F40.11 and Restless leg syndrome G25.81 [place] [address] [address] Mar, [place] [address] [address] Mar, [place] [address] [address] Feb, Left kidney mass N28.[address] [address] Jan, [place] [address] [address] Dec, Polydipsia R63.1 ; Chronic pancreatitis K86.1 and Fatigue, unspecified type R53.[address] [address] Nov, [place] [address] [address] Nov, [place] [address] [address] Nov, Headache around the eyes R51 [place] [address] [address] Nov, [place] [address] [address] October, STD exposure Z20.2 [place] [address] [address] October, STD exposure Z20.2 [place] [address] [address] October, Chronic post-traumatic stress disorder ( PTSD) F43.12 ; Generalized social phobia F40.11 ; Trichotillomania F63.3 and Restless leg syndrome G25.81 [place] [address] [address] October, [place] [address] [address] Sep, [place] [address] [address] Aug, [place] [address] [address] Aug, [place] [address] [address] Aug, Neck mass R22.1 [place] [address] [address] Aug, Atelectasis J98.11 [place] [address] [address] 28 Jul, 2016 Hyperlipidemia, mixed E78.2 ; Atypical p neumonia J18.9 and Neck mass R22.1 [place] [address] [address] 15 Jul, 2016 Hemoptysis R04.2 [place] [address] [address] 08 Jul, 2016 Acute non-recurrent pansinusitis J01.40 ; Hemoptysis R04.2 ; Polydipsia R63.1 and Malaise R53.81 [facility] [place] [id number] [place] [address] May, Other viral agents as the ca use of diseases classified elsewhere B97.89 and Acute upper respiratory infection, unspecified J06.9 [facility] [place] [address] [address] Mar, Nausea R11.0 [facility] [address] [address] Dec, Hives L50.9 [place] [address] [address] Dec, [facility] [place] [address] [address] Dec, Cutaneous abscess of limb, u nspecified L02.419 ; Cellulitis of unspecified part of limb L03.119 ; Encounter for incision and drainage procedure Z01.89 and Encounter for recheck of abscess following i ncision and drainage Z09 [facility] [place] [address] [place] [id number] [address] [place] [address] Dec, Abscess of leg, right L02.41 5 [place] [address] [address] 08 Dec, 2015 Cellulitis of unspecified part of limb L 03.119 and Cutaneous abscess of limb, unspecified L02.419 [place] [address] [address] Dec, [place] [address] [address] Dec, [facility] [place] [address] [place] [id number] [address] [place] [address] Aug, [place] [address] [address] Aug, [facility] [address] [place] [id number] [address] [place] [address] Jul, Pain in unspecified wrist M2 5.539 and Back pain, thoracic M54.6 [facility] [address] [facility] [id number] [address] [address] 13 Jun, 2015 Strain of right wrist, initi al encounter S66.911A [place] [address] [address] 11 Jun, 2015 Chronic pancreatitis, unspecified pancre atitis type K86.1 ; Hirsuties L68.0 ; Morbid (severe) obesity due to excess calories E66.01 ; Chronic pancreatitis K86.1 and Asthma J45.909 [place] [address] [address] May, [place] [address] [address] May, Hyperlipidemia, mixed E78.2 and Muscle s pasm of back M62.830 [place] [address] [address] Apr, [place] [address] [address] Apr, Torticollis M43.6 [place] [address] [address] 09 Apr, 2015 Right-sided thoracic back pain M54.6 [place] [address] [address] 15 Mar, 2015 Rash R21 [place] [address] [address] Mar, [place] [address] [address] Jan, [place] [address] [address] Dec, [facility] [address] [place] [id number] [place] [address] Dec, Urinary frequency 788.41 and Nocturia mo re than twice per night 788.43 [facility] [address] [place] [id number] [place] [address] Nov, [facility] [address] [place] [id number] [place] [address] Nov, [facility] [address] [address] Nov, Abdominal pain 789.00 [facility] [address] [address] October, TDAP DX V06.1 [facility] [address] [address] October, [facility] [address] [address] October, Disturbance of skin sensation 782.0 ; Wr ist pain, right 719.43 ; Hyperlipidemia 272.4 and Skin lesion of face 709.9 [facility] [address] [place] [address] [id number] [place] [address] Sep, [facility] [address] [address] Sep, [facility] [address] [address] Aug, [facility] [address] [place] [id number] [place] [address] Aug, [facility] [address] [address] Aug, [facility] [address] [address] Aug, [facility] [address] [address] Aug, [facility] [address] [place] [address] 16 Aug, 2014 [facility] [place] [facility] [address] [facility] [id number] [place] [address] 14 Aug, 2014 [facility] [address] [id number] [place] [address] 14 Aug, 2014 [facility] [address] [id number] [place] [address] Aug, [facility] [address] [id number] [place] [address] Aug, [facility] [address] [id number] [place] [address] Aug, [facility] [address] [id number] [place] [address] Aug, [facility] [address] [id number] [place] [address] Aug, [facility] [address] [id number] [place] [address] Aug, [facility] [address] [id number] [place] [address] Jul, [facility] [address] [id number] [place] [address] Jul, [facility] [address] [id number] [place] [address] Jul, [facility] [address] [id number] [place] [address] Jul, [facility] [address] [id number] [place] [address] Jul, [facility] [address] [id number] [place] [address] Jul, [facility] [address] [id number] [place] [address] Jun, [facility] [address] [id number] [place] [address] Jun, [facility] [address] [id number] [place] [address] Jun, [facility] [address] [id number] [place] [address] Jun, [facility] [address] [id number] [place] [address] Jun, [facility] [address] [id number] [place] [address] Jun, [facility] [address] [id number] [place] [address] Jun, [facility] [address] [id number] [place] [address] Jun, [facility] [address] [id number] [place] [address] May, [facility] [address] [id number] [place] [address] May, [facility] [address] [id number] [place] [address] May, [facility] [address] [id number] [place] [address] May, [facility] [address] [id number] [place] [address] May, [facility] [address] [id number] [place] [address] May, [facility] [address] [id number] [place] [address] May, [facility] [address] [id number] [place] [address] May, [facility] [address] [id number] [place] [address] May, [facility] [address] [id number] [place] [address] May, [facility] [address] [id number] [place] [address] May, [facility] [address] [id number] [place] [address] May, [facility] [address] [id number] [place] [address] Apr, [facility] [address] [id number] [place] [address] Apr, [facility] [address] [id number] [place] [address] Apr, [facility] [address] [id number] [place] [address] Apr, [facility] [address] [id number] [place] [address] Apr, [facility] [address] [id number] [place] [address] Apr, [facility] [address] [id number] [place] [address] Apr, [facility] [address] [id number] [place] [address] Apr, [facility] [address] [id number] [place] [address] Apr, [facility] [address] [id number] [place] [address] Apr, [facility] [address] [id number] [place] [address] Apr, [facility] [address] [id number] [place] [address] Apr, [facility] [address] [id number] [place] [address] Mar, [facility] [address] [id number] [place] [address] Mar, [facility] [address] [id number] [place] [address] Mar, [facility] [address] [facility] [id number] [place] [address] 02 Mar, 2014 [facility] [address] [facility] [id number] [place] [address] Feb, 2013 [facility] [address] [facility] [id number] [place] [address] Feb, 2013 [facility] [address] [id number] [place] [address] 05 Feb, 2013 [facility] [address] [facility] [id number] [place] [address] 05 Feb, 2013 [facility] [address] [facility] [id number] [place] [address] Feb, 2013 [facility] [address] [id number] [place] [address] Feb, 2013 [facility] [address] [id number] [place] [address] Jan, [facility] [address] [id number] [place] [address] Jan, [facility] [address] [id number] [place] [address] Jan, [facility] [address] [id number] [place] [address] Jan, [facility] [address] [id number] [place] [address] Jan, [facility] [address] [id number] [place] [address] Jan, [facility] [address] [facility] [id number] [place] [address] Jan, [facility] [address] [id number] [place] [address] Jan, [facility] [address] [id number] [place] [address] Jan, [facility] [address] [id number] [place] [address] Jan, [facility] [address] [id number] [place] [address] Jan, [facility] [address] [facility] [id number] [place] [address] Jan, [facility] [address] [facility] [id number] [place] [address] Jan, [facility] [address] [id number] [place] [address] Jan, [facility] [address] [facility] [id number] [place] [address] Dec, [facility] [address] [id number] [place] [address] Dec, [facility] [address] [id number] [place] [address] Dec, [facility] [address] [id number] [place] [address] Dec, [facility] [address] [id number] [place] [address] Nov, [facility] [address] [id number] [place] [address] Nov, [facility] [address] [id number] [place] [address] Nov, [facility] [address] [id number] [place] [address] Nov, [facility] [address] [id number] [place] [address] Nov, [facility] [address] [id number] [place] [address] October, [facility] [address] [id number] [place] [address] October, [facility] [address] [id number] [place] [address] October, [facility] [address] [id number] [place] [address] October, [facility] [address] [facility] [id number] [place] [address] October, [facility] [address] [facility] [id number] [place] [address] October, [facility] [place] [facility] [address] [id number] [place] [address] October, [facility] [address] [id number] [place] [address] October, [facility] [place] [facility] [address] [facility] [id number] [place] [address] October, [facility] [address] [id number] [place] [address] October, [facility] [address] [id number] [place] [address] October, [facility] [address] [id number] [place] [address] October, [facility] [place] [address] [facility] [id number] [place] [address] October, [facility] [facility] [address] [id number] [place] [address] October, [facility] [address] [id number] [place] [address] Sep, [facility] [place] [address] [id number] [place] [address] Sep, [facility] [place] [address] [facility] [id number] [place] [address] Sep, [facility] [address] [id number] [place] [address] Sep, [facility] [place] [address] [id number] [place] [address] Sep, [facility] [place] [address] [id number] [place] [address] Sep, [facility] [address] [id number] [place] [address] Sep, [facility] [address] [id number] [place] [address] Sep, [facility] [address] [id number] [place] [address] Sep, [facility] [address] [id number] [place] [address] Sep, [facility] [address] [id number] [place] [address] Sep, [facility] [address] [id number] [place] [address] Sep, [facility] [address] [id number] [place] [address] Sep, [facility] [address] [id number] [place] [address] Sep, [facility] [address] [id number] [place] [address] Sep, [facility] [address] [id number] [place] [address] Aug, [facility] [address] [id number] [place] [address] Aug, [facility] [address] [id number] [place] [address] Aug, [facility] [address] [id number] [place] [address] Aug, [facility] [address] [id number] [place] [address] Jul, [facility] [address] [id number] [place] [address] Jul, [facility] [address] [id number] [place] [address] Jul, [facility] [address] [id number] [place] [address] 03 Jul, 2013 [facility] [address] [id number] [place] [address] 15 Jun, 2013 [facility] [address] [id number] [place] [address] 15 Jun, 2013 [facility] [address] [id number] [place] [address] 15 Jun, 2013 [facility] [address] [id number] [place] [address] 15 Jun, 2013 [facility] [address] [id number] [place] [address] Jun, [facility] [address] [id number] [place] [address] Jun, [facility] [address] [id number] [place] [address] 08 Jun, 2013 [facility] [address] [id number] [place] [address] Jun, [facility] [address] [id number] [place] [address] May, [facility] [address] [id number] [place] [address] May, [facility] [address] [id number] [place] [address] 18 May, 2013 [facility] [address] [id number] [place] [address] 18 May, 2013 [facility] [address] [id number] [place] [address] 17 May, 2013 [facility] [place] [facility] [address] [facility] [id number] [place] [id number] May, [facility] [address] [id number] [place] [address] 17 May, 2013 [facility] [address] [id number] [place] [address] 17 May, 2013 [facility] [address] [id number] [place] [address] 16 May, 2013 [facility] [address] [id number] [place] [address] 16 May, 2013 [facility] [address] [id number] [place] [address] 14 May, 2013 [facility] [address] [id number] [place] [address] 14 May, 2013 [facility] [address] [id number] [place] [address] 13 May, 2013 [facility] [address] [id number] [place] [address] 13 May, 2013 [facility] [address] [id number] [place] [address] 12 May, 2013 [facility] [address] [id number] [place] [address] 12 May, 2013 [facility] [address] [id number] [place] [address] 11 May, 2013 [facility] [address] [id number] [place] [address] May, [facility] [address] [id number] [place] [address] Apr, [facility] [address] [id number] [place] [address] Apr, [facility] [address] [id number] [place] [address] Apr, [facility] [address] [id number] [place] [address] Apr, [facility] [address] [id number] [place] [address] 27 Aug, 2012 [facility] [address] [id number] [place] [address] 18 Aug, 2012 [facility] [address] [id number] [place] [address] 06 Aug, 2012 [facility] [address] [id number] [place] [address] Aug, [facility] [address] [id number] [place] [address] Jul, [facility] [address] [id number] [place] [address] Jun, [facility] [address] [id number] [place] [address] Jun, [facility] [address] [id number] [place] [address] Jun, [facility] [address] [id number] [place] [address] Jun, [facility] [address] [id number] [place] [address] May, [facility] [id number] [place] [address] May, [facility] [address] [id number] [place] [address] May, [facility] [address] [id number] [place] [address] May, [facility] [address] [id number] [place] [address] May, [facility] [id number] [place] [address] May, [facility] [address] [id number] [place] [address] May, [facility] [address] [id number] [place] [address] Apr, [facility] [id number] [place] [address] Apr, [facility] [address] [id number] [place] [address] Apr, [facility] [id number] [place] [address] Apr, [facility] [address] [id number] [place] [address] Apr, 2011 [facility] [address] [id number] [place] [address] Apr, [facility] [address] [id number] [place] [address] Apr, [facility] [address] [id number] [place] [address] Mar, [facility] [address] [id number] [place] [address] Mar, [facility] [address] [id number] [place] [address] Mar, [facility] [address] [id number] [place] [address] Mar, [facility] [address] [id number] [place] [address] Mar, [facility] [address] [id number] [place] [address] Mar, [facility] [address] [id number] [place] [address] Mar, [facility] [address] [id number] [place] [address] Mar, [facility] [address] [id number] [place] [address] Mar, [facility] [address] [id number] [place] [address] Mar, [facility] [address] [id number] [place] [address] Mar, [facility] [address] [id number] [place] [address] Mar, [facility] [address] [id number] [place] [address] 06 Feb, 2012 [facility] [address] [id number] [place] [address] Jan, [facility] [address] [id number] [place] [address] Jan, [facility] [address] [id number] [place] [address] Jan, [facility] [address] [id number] [place] [address] Jan, [facility] [address] [id number] [place] [address] Jan, [facility] [address] [id number] [place] [address] Dec, [facility] [address] [id number] [place] [address] Dec, [facility] [address] [id number] [place] [address] Nov, [facility] [address] [id number] [place] [address] Nov, [facility] [address] [id number] [place] [address] Nov, [facility] [address] [id number] [place] [address] October, [facility] [address] [id number] [place] [address] October, [facility] [address] [id number] [place] [address] October, [facility] [address] [id number] [place] [address] October, [facility] [address] [id number] [place] [address] October, [facility] [address] [id number] [place] [address] October, [facility] [address] [id number] [place] [address] October, [facility] [address] [id number] [place] [address] 26 Sep, 2011 [facility] [address] [id number] [place] [address] 26 Sep, 2011 [facility] [address] [id number] [place] [address] 26 Sep, 2011 [facility] [address] [id number] [place] [address] 25 Sep, 2011 [facility] [address] [id number] [place] [address] 24 Sep, 2011 [facility] [address] [id number] [place] [address] 19 Sep, 2011 [facility] [address] [id number] [place] [address] 17 Sep, 2011 [facility] [address] [id number] [place] [address] 16 Sep, 2011 [facility] [address] [id number] [place] [address] 16 Sep, 2011 [facility] [address] [id number] [place] [address] 14 Sep, 2011 [facility] [address] [id number] [place] [address] 13 Sep, 2011 [facility] [address] [id number] [place] [address] 10 Sep, 2011 [facility] [address] [id number] [place] [address] 09 Sep, 2011 [facility] [address] [id number] [place] [address] 27 Aug, 2011 [facility] [address] [id number] [place] [address] 12 Aug, 2011 [facility] [address] [id number] [place] [address] 08 Aug, 2011 [facility] [address] [id number] [place] [address] Aug, [facility] [address] [id number] [place] [address] 28 Jul, 2011 [facility] [address] [id number] [place] [address] 22 Jul, 2011 [facility] [address] [id number] [place] [address] 16 Jul, 2011 [facility] [address] [id number] [place] [address] 15 Jul, 2011 [facility] [address] [id number] [place] [address] 14 Jul, 2011 [facility] [address] [id number] [place] [address] 10 Jul, 2011 [facility] [address] [id number] [place] [address] Jun, [facility] [address] [id number] [place] [address] Jun, [facility] [facility] [address] [id number] [place] [address] Jun, [facility] [address] [id number] [place] [address] Jun, [facility] [address] [id number] [place] [address] Jun, [facility] [address] [id number] [place] [address] May, [facility] [address] [id number] [place] [address] May, [facility] [address] [id number] [place] [address] May, [facility] [address] [id number] [place] [address] May, [facility] [address] [id number] [place] [address] May, [facility] [address] [id number] [place] [address] 07 May, 2011 [facility] [address] [id number] [place] [address] May, [facility] [address] [id number] [place] [address] Apr, [facility] [address] [id number] [place] [address] Apr, [facility] [address] [id number] [place] [address] Apr, [facility] [address] [id number] [place] [address] Apr, [facility] [address] [id number] [place] [address] Apr, [facility] [address] [id number] [place] [address] Apr, [facility] [address] [id number] [place] [address] Mar, [facility] [address] [id number] [place] [address] Mar, [facility] [address] [id number] [place] [address] Mar, [facility] [address] [id number] [place] [address] Mar, [facility] [address] [id number] [place] [address] Jan, [facility] [address] [id number] [place] [address] Dec, [facility] [id number] [place] [address] Dec, [facility] [address] [id number] [place] [address] October, [facility] [address] [id number] [place] [address] Sep, [facility] [address] [id number] [place] [address] 14 Sep, 2010 [facility] [address] [id number] [place] [address] 17 Jul, 2010 [facility] [address] [id number] [place] [address] 16 Jul, 2010 [facility] [address] [id number] [place] [address] 31 May, 2010 [facility] [address] [id number] [place] [address] May, [facility] [address] [id number] [place] [address] May, [facility] [address] [id number] [place] [address] May, [facility] [address] [id number] [place] [address] Apr, [facility] [address] [id number] [place] [address] Apr, [facility] [address] [id number] [place] [address] Apr, [facility] [address] [id number] [place] [address] Apr, [facility] [address] [id number] [place] [address] Apr, [facility] [address] [id number] [place] [address] Mar, [facility] [address] [id number] [place] [address] 14 Mar, 2010 [facility] [address] [id number] [place] [address] 13 Mar, 2010 [facility] [address] [id number] [place] [address] 12 Mar, 2010 [facility] [id number] [place] [address] Jan, [facility] [id number] [place] [address] Dec, [facility] [id number] [place] [address] Sep, [facility] [id number] [place] [address] May, [facility] [id number] [place] [address] May, [facility] [id number] [place] [address] May, [facility] [id number] [place] [address] Apr, [facility] [id number] [place] [address] Apr, [facility] [id number] [place] [address] Apr, [facility] [id number] [place] [address] Apr, [facility] [id number] [place] [address] Apr, [facility] [id number] [place] [address] Mar, [facility] [id number] [place] [address] Mar, [facility] [id number] [place] [address] Jul, IMMUNIZATIONS No Known Immunizations SOCIAL HISTORY Never Assessed REASON FOR VISIT PLAN OF CARE VITAL SIGNS Height 62 in 2013-09-16 Weight 256.25 lbs 2013-09-16 Temperature 96.9 degrees Fahrenheit 2013-09-16 Heart Rate 104 bpm 2013-09-16 Respiratory Rate 16 2013-09-16 Blood pressure systolic 128 mmHg 2013-09-16 Blood pressure diastolic 66 mmHg 2013-09-16 MEDICATIONS Unknown Medications RESULTS No Results PROCEDURES Procedure Date Ordered Result Body Site THER/PROPH/DIAG INJ, SC/IM September 16, 2013 INJ METHYLPRDNISLN SODIM TO 125 MG September 16, 2013 MEASURE BLOOD OXYGEN LEVEL September 16, 2013 INSTRUCTIONS MEDICATIONS ADMINISTERED No Known Medications [...] replaced VC 10/2018 Hospitalization History Cellulitis-[facility] Hospitalization History [facility] [place]- Abd pain 03/07/2017 Hospitalization History [facility] [place]- Abd pain 03/14/2017 Hospitalization History [facility] [place]- No bowel movement, rash 04/13/2017 Hospitalization History [facility] [place]- Abd pain r/ t kidney surgery on 04/10/17 04/17/2017 Hospitalization History [facility] [place]- Abd pain r/ t kidney surgery on 04/10/17 04/18/2017 Hospitalization History [facility] [place]- Lower abd pain 04/17 Hospitalization History [facility] [place]- Cannot urinate 05/17 Hospitalization History [facility] [place]- Pancreatitis Sx Hospitalization History [facility] [place]- Stomach pain 2017 Hospitalization History [facility] [place]- Left side pain 07/19 Hospitalization History [facility]- Incision site infec tion 08/30/2017 Hospitalization History [facility]- Post Op Serom a/Hematoma Left Abdomen. Discharged 09/04/17- Dr Daniel 09/02/2017 Hospitalization History [facility]- Right shoulder and back pain 10/22/2017 Hospitalization History [facility]- Shoulder/Back pain 11/11/2017 Hospitalization History [facility]- Right shoulder blad e pain 12/04/2017 Hospitalization History [facility]- C-Diff 12/13/2017 Hospitalization History C diff et MRSA 12/27/2017 Hospitalization History [facility] Bowel Obstruction 10/2018 Hospitalization History [facility]- Abdominal pain and nausea 01/08/2019
--- OUTSIDE RECORDS SUMMARY | 2019-10-17 05:13 | XMS REPORT ---
Author Author Janeth GIBBS [facility] Address [address] [place] [address] Care Team Providers Care Boatswain'S Mate Name Role Phone SAI CARMEN Unavailable PROBLEMS Type Condition ICD9-CM Code [id number] Code Onset Dates Condition S tatus SNOMED Code Problem History of renal cell carcinoma Z85.528 Active 248975074 Problem Hepatic steatosis K76.0 Active 19 6311874 Problem Nodule of left lung R91.1 Active 253722853 Problem Right carpal tunnel syndrome G56.01 A ctive 882763085273949 Problem Mild obstructive sleep apnea G47.33 A ctive 92013500 Problem Moderate episode of recurrent major depressive disorder F33.1 Active 648764767 Problem Trichotillomania F63.3 Active 171 43843 Problem Morbid (severe) obesity due to excess calories E66 .01 Active 673203549 Problem Chronic tension-type headache, intractable G44.221 Active 252839302 Problem Asthma J45.909 Active 885926959 Problem Chronic pancreatitis K86.1 Active 336118491 Problem Atelectasis J98.11 Active 87903524 Problem Polydipsia R63.1 Active 56086220 Problem Chronic post-traumatic stress disorder (PTSD) F43. 12 Active 466146223 Problem Restless leg syndrome G25.81 Active 35441184 Problem Chronic fatigue R53.82 Active 8422 9001 Problem Intestinal malabsorption, unspecified K90.9 Active 38217195 Problem Primary osteoarthritis of right knee M17.11 Active 458545864799065 Problem Social phobia, generalized F40.11 Act yolanda 05895421 Problem FH: polycystic ovary Z84.2 Active 669885769 Problem Social phobia, unspecified F40.10 Act yolanda 36549348 Problem Hirsuties L68.0 Active 173296751 Problem Hyperlipidemia, mixed E78.2 Active 748428316 Problem Obesities, morbid E66.01 Active 23 4823568 Problem Menopausal symptoms N95.1 Active 54706871 Problem Conflict between patient and family Z63.9 Active 95598544 Problem Morbid obesity E66.01 Active 41694 6002 ALLERGIES No Information ENCOUNTERS Encounter Location Date Diagnosis [facility] [id number] [place] [address] Jul, [facility] [id number] [place] [address] Jun, [facility] [address] [address] Jun, [facility] [id number] [place] [address] Jun, [facility] [address] [address] Jun, [facility] [id number] [place] [address] May, [address] [place] [address] May, [facility] [id number] [place] [address] May, [facility] [address] [address] May, [facility] [id number] [place] [address] May, [facility] [id number] [place] [address] Apr, [facility] [id number] [place] [address] Apr, [facility] [address] [address] Apr, [facility] [address] [address] Mar, Cervical radiculopathy M54.12 [facility] [address] [address] Mar, [facility] [id number] [place] [address] Mar, [facility] [id number] [place] [address] Mar, [facility] [id number] [place] [address] Mar, [facility] [id number] [place] [address] Mar, [facility] [id number] [place] [address] Mar, [facility] [id number] [place] [address] Mar, [facility] [id number] [place] [address] Feb, Chronic cough R05 [facility] [id number] [place] [address] Feb, [facility] [id number] [place] [address] Feb, [facility] [id number] [place] [address] Feb, Cervical radiculopathy M54.12 [facility] [id number] [place] [address] Feb, Pain of left thumb M79.645 [facility] [id number] [place] [address] Feb, [facility] [id number] [place] [address] Feb, [facility] [id number] [place] [address] Feb, [facility] [id number] [place] [address] Feb, Cough present for greater than 3 weeks R 05 [facility] [address] [address] Feb, Cough present for greater than 3 weeks R 05 ; Feels sick R68.89 ; History of renal cell carcinoma Z85.528 and Morbid obesity E66.01 [address] [place] [address] [address] Jan, [facility] [address] [id number] [place] [id number] Jan, Oral health maintenance status requiring routine preventive dental care K08.9 ; Dental examination Z01.20 and Caries K02.9 [place] [address] [address] Jan, Dysuria R30.0 [place] [address] [address] Jan, Dysuria R30.0 [place] [address] [address] Jan, Viral pharyngitis J02.9 and Morbid obesi ty E66.01 [place] [address] [address] Jan, [address] [address] Jan, Left sided abdominal pain R10.9 ; Other acute postprocedural pain G89.18 ; History of renal cell carcinoma Z85.528 and Morbid obesity E66.01 [address] [address] [address] Dec, Dental examination Z01.20 [place] [address] [address] Dec, Elevated LFTs R94.[address] [address] Dec, Encounter for Medicare annual wellness e xam Z00.00 ; Chronic tension- type headache, intractable G44.221 ; Morbid (severe) obesity due to excess calories E66.01 ; Hyperlipidemia, mixed E78.2 ; Chronic pancreatitis K86.1 ; Asthma J45.909 ; Moderate episode of recurrent major depressive disorder F33.1 ; Chronic fatigue R53.82 and Social phobia, unspecified F40.10 [place] [address] [address] Dec, [facility] [address] [address] Dec, [place] [address] [address] Dec, [address] [address] [address] Dec, Hyperlipidemia, mixed E78.2 ; History of renal cell carcinoma Z85.528 and Restless leg syndrome G25.81 [place] [address] [address] Dec, Hyperlipidemia, mixed E78.2 ; Chronic pa ncreatitis K86.1 ; Restless leg syndrome G25.81 ; Nodule of left lung R91.1 ; History of renal cell carcinoma Z85.528 ; Leg swelling M79.89 ; Morbid obesity E66.01 and Observed sleep apnea G47.30 [place] [address] [address] Nov, [address] [address] [address] Nov, [facility] [address] [address] Nov, [facility] [address] [facility] [id number] [address] [place] [address] Nov, Other acute postprocedural p ain G89.18 and Unspecified abdominal pain R10.9 [facility] [address] [address] October, [address] [address] [address] October, Social phobia, generalized F40.11 ; Conf lict between patient and family Z63.9 and Morbid obesity E66.01 [facility] [id number] [place] [address] October, [facility] [id number] [place] [address] October, [facility] [id number] [place] [address] October, [facility] [id number] [place] [address] October, [facility] [address] [place] [address] October, [facility] [id number] [place] [address] October, [facility] [address] [place] [address] October, [facility] [id number] [place] [address] October, Morbid obesity E66.01 ; Routine gynecolo gical examination Z01.419 and Menopausal symptoms N95.1 [facility] [id number] [place] [address] October, [facility] [address] [place] [address] Sep, [facility] [id number] [place] [address] Sep, [facility] [id number] [place] [address] Sep, [facility] [id number] [place] [address] Sep, [facility] [id number] [place] [address] Sep, Lower extremity edema R60.0 [facility] [id number] [place] [address] Sep, [facility] [address] [facility] [id number] [place] [address] Sep, Lower extremity edema R60.0 and Morbid obesity E66.01 [facility] [address] [facility] [place] [address] Sep, [facility] [id number] [place] [address] Sep, [facility] [id number] [place] [address] Aug, [facility] [address] [address] Aug, Obesities, morbid E66.01 and Morbid obes ity E66.01 [facility] [id number] [place] [address] Aug, [facility] [address] [place] [address] Jul, [facility] [id number] [place] [address] Jul, [facility] [id number] [place] [address] Jul, [facility] [id number] [place] [address] Jul, Numbness of right hand R20.0 [facility] [id number] [place] [address] Jul, [facility] [id number] [place] [address] Jul, Numbness of right hand R20.0 [facility] [id number] [place] [address] Jul, [facility] [id number] [place] [address] Jul, [facility] [address] [address] Jul, Right-sided thoracic back pain M54.6 [facility] [address] [address] Jul, [facility] [address] [address] Jul, [facility] [address] [address] Jul, [facility] [address] [address] Jul, [facility] [address] [address] Jun, [address] [address] [address] Jun, Acute pain of right shoulder M25.511 ; N umbness of right hand R20.0 and Trapezius muscle spasm M62.838 [address] [address] [address] Jun, [address] [address] [address] Jun, [address] [address] [address] Jun, Cough R05 ; BMI 50.0-59.9, adult Z68.43 and Morbid obesity E66.01 [facility] [address] [address] Jun, [facility] [address] [address] Jun, [facility] [id number] [place] [address] Jun, BMI 45.0-49.9, adult Z68.42 and Acute non-recurrent maxillary sinusitis J01.00 [facility] [address] [address] Jun, Acute sinusitis J01.90 ; Dys uria R30.0 and BMI 45.0- 49.9, adult Z68.42 [address] [address] [address] Jun, [address] [address] [address] Jun, [address] [address] [address] May, [address] [address] [address] May, [address] [address] [address] May, [address] [address] [address] May, [address] [address] [address] May, [address] [address] [address] Apr, Generalized social phobia F40.11 ; Trich otillomania F63.3 ; Chronic post-traumatic stress disorder (PTSD) F43.12 and BMI 45.0-49.9, adult Z68.42 [address] [address] [address] Apr, [address] [address] [address] Apr, Chronic tension-type headache, intractab le G44.221 [address] [address] [address] Apr, [facility] [id number] [place] [address] Mar, [facility] [address] [address] Mar, BMI 45.0-49.9, adult Z68.42 and Pimples R23.8 [address] [address] [address] Mar, [facility] [address] [address] Mar, [address] [address] [address] Mar, Decreased urination R34 ; Chronic fatigu e R53.82 ; Peripheral edema R60.9 ; Diarrhea, unspecified type R19.7 ; Non-intractable vomiting with nausea, unspecified vomiting type R11.2 ; BMI 45.0-49.9, adult Z68.42 and Chronic post- traumatic stress disorder (PTSD) F43.12 [address] [address] [address] Mar, Intestinal malabsorption, unspecified K9 0.9 ; Diarrhea, unspecified R19.7 ; Urinary urgency R39.15 ; Rectal bleeding K62.5 and Decreased urine output R34 [address] [address] [address] Mar, Decreased urine output R34 [place] [address] [address] Mar, Rectal bleeding K62.5 [address] [address] [address] Mar, Rectal bleeding K62.5 [place] [address] [address] Mar, Urinary urgency R39.15 [place] [address] [address] Mar, Urinary urgency R39.15 [place] [address] [address] Mar, Primary osteoarthritis of right knee M17 .11 and BMI 45.0-49.9, adult Z68.42 [address] [id number] [place] [address] Mar, [facility] [address] [address] Feb, Left upper arm pain M79.622 [facility] [address] [address] Feb, [facility] [address] [address] Jan, Acute pain of right knee M25.561 ; Right upper quadrant abdominal pain R10.11 and BMI 45.0-49.9, adult Z68.42 [place] [address] [address] Jan, [facility] [address] [address] Jan, [facility] [address] [address] Dec, [facility] [address] [address] Dec, Intestinal malabsorption, unspecified K9 0.9 and Diarrhea, unspecified R19.7 [facility] [address] [address] Dec, [facility] [address] [address] Dec, Strep throat J02.0 ; Intestinal malabsor ption, unspecified K90.9 ; Diarrhea, unspecified R19.7 ; Postoperative seroma involving digestive system after non-digestive system procedure K91.873 ; Hyperlipidemia, mixed E78.2 and BMI 45.0-49.9, adult Z68.42 [facility] [id number] [place] [address] Dec, [facility] [address] [address] Dec, Nausea R11.0 [facility] [address] [facility] [place] [address] Dec, [facility] [address] [facility] [id number] [address] [place] [address] Dec, Sore throat J02.9 ; Strep th roat J02.0 and BMI 45.0- 49.9, adult Z68.42 [facility] [id number] [place] [address] Dec, [facility] [id number] [place] [address] Dec, [facility] [id number] [place] [address] Dec, [facility] [id number] [place] [address] Dec, [facility] [id number] [place] [address] Dec, [facility] [id number] [place] [address] Dec, [facility] [id number] [place] [address] Dec, [facility] [id number] [place] [address] Dec, [facility] [id number] [place] [address] Dec, Clostridium difficile colitis A04.72 ; I ntractable vomiting with nausea, unspecified vomiting type R11.2 and BMI 45.0-49.9, adult Z68.42 [facility] [id number] [place] [address] Dec, [facility] [id number] [place] [address] Nov, [facility] [id number] [place] [address] Nov, [facility] [address] [address] Nov, [place] [address] [address] Nov, [facility] [address] [facility] [id number] [address] [place] [address] Nov, [place] [address] [address] Nov, Hyperlipidemia, mixed E78.2 [facility] [address] [facility] [id number] [address] [place] [address] 12 Nov, 2017 Acute suppurative otitis med ia of right ear without spontaneous rupture of tympanic membrane, recurrence not specified H66.001 and BMI 45.0-49.9, adult Z68.42 [place] [address] [address] 12 Nov, 2017 Hyperlipidemia, mixed E78.2 [place] [address] [address] Nov, [place] [address] [address] Nov, [place] [address] [address] 04 Nov, 2017 Nodule of left lung R91.[address] [address] 04 Nov, 2017 Medicare annual wellness visit, [...] Z68.42 and Encounter for immunization Z23 [address] [address] October, [place] [address] [address] October, Nodule of left lung R91.1 [place] [address] [address] October, Nodule of left lung R91.1 [place] [address] [address] October, Recurrent major depressive disorder, in partial remission F33.41 ; Restless leg syndrome G25.81 ; Generalized social phobia F40.11 ; Chronic post- traumatic stress disorder (PTSD) F43.12 ; BMI 45.0-49.9, adult Z68.42 and Trichotillomania F63.3 [place] [address] [address] October, [place] [address] [address] Sep, Chronic fatigue R53.82 and BMI 45.0-49.9 , adult Z68.42 [place] [address] [address] Aug, [place] [address] [address] Jul, Restless leg syndrome G25.81 and B12 def iciency E53.[address] [address] Jul, [place] [address] [address] Jul, [place] [address] [address] Jun, [place] [address] [address] Jun, Fatigue, unspecified type R53.83 ; Histo ry of renal cell carcinoma Z85.528 ; Chronic pancreatitis K86.1 ; Restless leg syndrome G25.81 ; Dark urine R82.99 and BMI 45.0-49.9, adult Z68.42 [place] [address] [address] Jun, [facility] [address] [address] Jun, [facility] [address] [address] Jun, [facility] [address] [address] Jun, [place] [address] [address] May, Chronic post-traumatic stress disorder ( PTSD) F43.12 ; Moderate episode of recurrent major depressive disorder F33.1 ; Trichotillomania F63.3 and Generalized social phobia F40.11 [place] [address] [address] May, [place] [address] [address] May, Chronic post-traumatic stress disorder ( PTSD) F43.12 ; Moderate episode of recurrent major depressive disorder F33.1 ; Trichotillomania F63.3 and Generalized social phobia F40.11 [place] [address] [address] May, Hyperlipidemia, mixed E78.2 ; Morbid (se nehemias) obesity due to excess calories E66.01 ; Chronic post-traumatic stress disorder (PTSD) F43.12 ; Moderate episode of recurrent major depressive disorder F33.1 ; Trichotillomania F63.3 and Generalized social phobia F40.11 [place] [address] [address] Apr, [place] [address] [address] Apr, Hyperlipidemia, mixed E78.2 ; Morbid (se nehemias) obesity due to excess calories E66.01 ; Chronic post-traumatic stress disorder (PTSD) F43.12 ; Moderate episode of recurrent major depressive disorder F33.1 ; Trichotillomania F63.3 and Generalized social phobia F40.11 [place] [address] [address] Apr, Trichotillomania F63.3 ; Generalized soc ial phobia F40.11 ; Chronic post-traumatic stress disorder (PTSD) F43.12 and Moderate episode of recurrent major depressive disorder F33.1 [place] [address] [address] Apr, [place] [address] [address] Apr, [place] [address] [address] Mar, Moderate episode of recurrent major depr essive disorder F33.1 ; Trichotillomania F63.3 ; Chronic post-traumatic stress disorder (PTSD) F43.12 ; Generalized social phobia F40.11 and Restless leg syndrome G25.81 [place] [address] [address] Mar, [place] [address] [address] Mar, [place] [address] [address] Feb, Left kidney mass N28.89 [place] [address] [address] Jan, [place] [address] [address] Dec, Polydipsia R63.1 ; Chronic pancreatitis K86.1 and Fatigue, unspecified type R53.83 [place] [address] [address] Nov, [place] [address] [address] Nov, [place] [address] [address] Nov, Headache around the eyes R51 [place] [address] [address] Nov, [place] [address] [address] October, STD exposure Z20.2 [place] [address] [address] October, STD exposure Z20.2 [place] [address] [address] October, Chronic post-traumatic stress disorder ( PTSD) F43.12 ; Generalized social phobia F40.11 ; Trichotillomania F63.3 and Restless leg syndrome G25.81 [place] [address] [address] October, [place] [address] [address] Sep, [place] [address] [address] Aug, [place] [address] [address] Aug, [place] [address] [address] Aug, Neck mass R22.1 [place] [address] [address] Aug, Atelectasis J98.11 [place] [address] [address] 28 Jul, 2016 Hyperlipidemia, mixed E78.2 ; Atypical p neumonia J18.9 and Neck mass R22.1 [place] [address] [address] 15 Jul, 2016 Hemoptysis R04.2 [place] [address] [address] [id number] [place] [address] 08 Jul, 2016 Acute non-recurrent pansinusitis J01.40 ; Hemoptysis R04.2 ; Polydipsia R63.1 and Malaise R53.81 [facility] [place] [address] [address] [place] [address] May, Other viral agents as the ca use of diseases classified elsewhere B97.89 and Acute upper respiratory infection, unspecified J06.9 [facility] [place] [address] [address] [place] [id number] [place] [address] Mar, Nausea R11.0 [facility] [place] [address] [address] 28 Dec, 2015 Hives L50.9 [place] [address] [address] 14 Dec, 2015 [facility] [place] [address] [address] [place] [id number] [place] [address] Dec, Cutaneous abscess of limb, u nspecified L02.419 ; Cellulitis of unspecified part of limb L03.119 ; Encounter for incision and drainage procedure Z01.89 and Encounter for recheck of abscess following i ncision and drainage Z09 [facility] [place] [id number] [place] [address] 09 Dec, 2015 Abscess of leg, right L02.41 5 [place] [address] [address] [id number] [place] [address] 08 Dec, 2015 Cellulitis of unspecified part of limb L 03.119 and Cutaneous abscess of limb, unspecified L02.419 [place] [address] [address] Dec, [place] [address] [address] Dec, [facility] [place] [address] [address] [place] [id number] [place] [address] 07 Aug, 2015 [place] [address] [address] Aug, [facility] IN [facility] [address] [facility] [id number] [address] [place] [address] 04 Jul, 2015 Pain in unspecified wrist M2 5.539 and Back pain, thoracic M54.6 [facility] IN [facility] [address] [facility] [id number] [address] [place] [address] Jun, Strain of right wrist, initi al encounter S66.911A [place] [address] [address] Jun, Chronic pancreatitis, unspecified pancre atitis type K86.1 ; Hirsuties L68.0 ; Morbid (severe) obesity due to excess calories E66.01 ; Chronic pancreatitis K86.1 and Asthma J45.909 [place] [address] [address] May, [place] [address] [address] May, Hyperlipidemia, mixed E78.2 and Muscle s pasm of back M62.830 [place] [address] [address] Apr, [place] [address] [address] Apr, Torticollis M43.6 [place] [address] [address] 09 Apr, 2015 Right-sided thoracic back pain M54.6 [place] [address] [address] 15 Mar, 2015 Rash R21 [place] [address] [address] Mar, [place] [address] [address] Jan, [facility] [id number] [place] [address] Dec, [facility] [address] [address] Dec, Urinary frequency 788.41 and Nocturia mo re than twice per night 788.43 [facility] [id number] [place] [address] Nov, [facility] [address] [address] Nov, [facility] [address] [address] Nov, Abdominal pain 789.00 [facility] [address] [address] October, TDAP DX V06.1 [facility] [address] [address] October, [facility] [address] [address] October, Disturbance of skin sensation 782.0 ; Wr ist pain, right 719.43 ; Hyperlipidemia 272.4 and Skin lesion of face 709.9 [facility] [id number] [place] [address] Sep, [facility] [address] [address] Sep, [facility] [address] [id number] [place] [address] Aug, [facility] [address] [address] Aug, [facility] [address] [address] Aug, [facility] [id number] [place] [address] Aug, [facility] [address] [place] [address] 16 Aug, 2014 [facility] [address] [facility] [id number] [place] [address] 16 Aug, 2014 [facility] [address] [id number] [place] [address] 14 Aug, 2014 [facility] [address] [id number] [place] [address] 14 Aug, 2014 [facility] [address] [id number] [place] [address] 11 Aug, 2014 [facility] [address] [id number] [place] [address] Aug, [facility] [address] [id number] [place] [address] Aug, [facility] [address] [id number] [place] [address] Aug, [facility] [address] [id number] [place] [address] Aug, [facility] [address] [id number] [place] [address] Aug, [facility] [address] [id number] [place] [address] Jul, 2014 [facility] [address] [id number] [place] [address] Jul, 2014 [facility] [address] [id number] [place] [address] Jul, 2014 [facility] [address] [id number] [place] [address] Jul, 2014 [facility] [address] [id number] [place] [address] Jul, 2014 [facility] [address] [id number] [place] [address] Jul, [facility] [address] [id number] [place] [address] Jun, [facility] [address] [id number] [place] [address] Jun, [facility] [address] [id number] [place] [address] Jun, [facility] [address] [id number] [place] [address] Jun, [facility] [address] [id number] [place] [address] Jun, [facility] [address] [facility] [id number] [place] [address] Jun, [facility] [address] [id number] [place] [address] Jun, [facility] [address] [id number] [place] [address] 15 Jun, 2014 [facility] [address] [id number] [place] [address] May, [facility] [address] [id number] [place] [address] May, [facility] [address] [id number] [place] [address] 18 May, 2014 [facility] [address] [id number] [place] [address] 18 May, 2014 [facility] [address] [id number] [place] [address] 15 May, 2014 [facility] [address] [id number] [place] [address] 15 May, 2014 [facility] [address] [id number] [place] [address] May, [facility] [address] [id number] [place] [address] May, [facility] [address] [id number] [place] [address] 09 May, 2014 [facility] [address] [id number] [place] [address] May, [facility] [address] [id number] [place] [address] May, [facility] [address] [id number] [place] [address] May, [facility] [address] [id number] [place] [address] Apr, [facility] [address] [id number] [place] [address] Apr, [facility] [address] [id number] [place] [address] Apr, [facility] [address] [id number] [place] [address] Apr, [facility] [address] [id number] [place] [address] Apr, [facility] [address] [id number] [place] [address] Apr, [facility] [address] [id number] [place] [address] Apr, [facility] [address] [id number] [place] [address] Apr, [facility] [address] [id number] [place] [address] Apr, [facility] [address] [id number] [place] [address] Apr, [facility] [address] [id number] [place] [address] Apr, [facility] [address] [id number] [place] [address] Apr, [facility] [address] [id number] [place] [address] 14 Mar, 2014 [facility] [address] [id number] [place] [address] 14 Mar, 2014 [facility] [address] [facility] [id number] [place] [address] Mar, [facility] [address] [facility] [id number] [place] [address] Mar, [facility] [address] [facility] [id number] [place] [address] Feb, [facility] [address] [id number] [place] [address] Feb, 2013 [facility] [address] [facility] [id number] [place] [address] 05 Feb, 2014 [facility] [address] [facility] [id number] [place] [address] Feb, 2013 [facility] [address] [id number] [place] [address] Feb, [facility] [address] [id number] [place] [address] Feb, 2013 [facility] [address] [id number] [place] [address] Jan, [facility] [address] [id number] [place] [address] Jan, [facility] [address] [id number] [place] [address] Jan, [facility] [address] [id number] [place] [address] Jan, [facility] [address] [id number] [place] [address] Jan, [facility] [address] [facility] [id number] [place] [address] Jan, [facility] [address] [id number] [place] [address] Jan, [facility] [address] [id number] [place] [address] Jan, [facility] [address] [id number] [place] [address] Jan, [facility] [address] [id number] [place] [address] Jan, [facility] [address] [facility] [id number] [place] [address] Jan, [facility] [address] [facility] [id number] [place] [address] Jan, [facility] [address] [id number] [place] [address] Jan, [facility] [address] [facility] [id number] [place] [address] Jan, [facility] [address] [id number] [place] [address] Dec, [facility] [address] [id number] [place] [address] Dec, [facility] [address] [id number] [place] [address] Dec, [facility] [address] [id number] [place] [address] Dec, [facility] [address] [id number] [place] [address] Nov, [facility] [address] [id number] [place] [address] Nov, [facility] [address] [id number] [place] [address] Nov, [facility] [address] [id number] [place] [address] Nov, [facility] [address] [id number] [place] [address] Nov, [facility] [address] [id number] [place] [address] October, [facility] [address] [id number] [place] [address] October, [facility] [address] [id number] [facility] [place] [address] October, [facility] [address] [facility] [id number] [facility] [place] [address] October, [facility] [address] [facility] [id number] [place] [address] October, [facility] [address] [id number] [place] [address] October, [facility] [address] [id number] [place] [address] October, [facility] [address] [facility] [id number] [facility] [address] October, [facility] [address] [id number] [place] [address] October, [facility] [address] [id number] [place] [address] October, [facility] [address] [id number] [place] [address] October, [facility] [address] [facility] [id number] [facility] [place] [address] October, [facility] [address] [id number] [place] [address] October, [facility] [address] [id number] [place] [address] October, [facility] [address] [id number] [facility] [place] [address] 17 Sep, 2013 [facility] [address] [facility] [id number] [facility] [place] [address] 17 Sep, 2013 [facility] [address] [id number] [facility] [place] [address] 14 Sep, 2013 [facility] [address] [id number] [facility] [place] [address] 14 Sep, 2013 [facility] [address] [id number] [facility] [place] [address] 10 Sep, 2013 [facility] [address] [id number] [place] [address] Sep, [facility] [address] [id number] [place] [address] Sep, [facility] [address] [id number] [place] [address] Sep, [facility] [address] [id number] [place] [address] Sep, [facility] [address] [id number] [place] [address] Sep, [facility] [address] [id number] [place] [address] Sep, [facility] [address] [id number] [place] [address] Sep, [facility] [address] [id number] [place] [address] Sep, [facility] [address] [id number] [place] [address] Sep, [facility] [address] [id number] [place] [address] Sep, [facility] [address] [id number] [place] [address] Aug, [facility] [address] [id number] [place] [address] Aug, [facility] [address] [id number] [place] [address] Aug, [facility] [address] [id number] [place] [address] Aug, [facility] [address] [id number] [place] [address] Jul, [facility] [address] [id number] [place] [address] Jul, [facility] [address] [id number] [place] [address] 06 Jul, 2013 [facility] [address] [facility] [id number] [place] [address] Jul, [facility] [address] [id number] [place] [address] 15 Jun, 2013 [facility] [address] [id number] [place] [address] 15 Jun, 2013 [facility] [address] [id number] [place] [address] Jun, [facility] [address] [id number] [place] [address] 15 Jun, 2013 [facility] [address] [id number] [place] [address] Jun, [facility] [address] [id number] [place] [address] Jun, [facility] [address] [id number] [place] [address] Jun, [facility] [address] [id number] [place] [address] 08 Jun, 2013 [facility] [address] [id number] [place] [address] May, [facility] [address] [id number] [place] [address] May, [facility] [address] [id number] [place] [address] 18 May, 2013 [facility] [address] [id number] [place] [address] 18 May, 2013 [facility] [address] [id number] [place] [address] 17 May, 2013 [facility] [address] [facility] [id number] [place] [id number] 17 May, 2013 [facility] [address] [id number] [place] [address] 17 May, 2013 [facility] [address] [id number] [place] [address] 17 May, 2013 [facility] [address] [id number] [place] [address] 16 May, 2013 [facility] [address] [id number] [place] [address] 16 May, 2013 [facility] [address] [id number] [place] [address] 14 May, 2013 [facility] [address] [id number] [place] [address] 14 May, 2013 [facility] [address] [id number] [place] [address] 13 May, 2013 [facility] [address] [id number] [place] [address] 13 May, 2013 [facility] [address] [id number] [place] [address] 12 May, 2013 [facility] [address] [id number] [place] [address] 12 May, 2013 [facility] [address] [id number] [place] [address] 11 May, 2013 [facility] [address] [id number] [place] [address] May, [facility] [address] [id number] [place] [address] 26 Apr, 2013 [facility] [address] [id number] [place] [address] Apr, [facility] [address] [id number] [place] [address] Apr, [facility] [address] [id number] [place] [address] Apr, [facility] [address] [id number] [place] [address] 27 Aug, 2012 [facility] [address] [id number] [place] [address] 18 Aug, 2012 [facility] [address] [id number] [place] [address] Aug, [facility] [address] [id number] [place] [address] Aug, [facility] [address] [id number] [place] [address] Jul, [facility] [address] [id number] [place] [address] Jun, [facility] [address] [id number] [place] [address] Jun, [facility] [address] [id number] [place] [address] Jun, [facility] [address] [id number] [place] [address] Jun, [facility] [id number] [place] [address] May, [facility] [id number] [place] [address] May, [facility] [address] [id number] [place] [address] May, [facility] [id number] [place] [address] May, [facility] [id number] [place] [address] May, [facility] [address] [id number] [place] [address] May, [facility] [address] [id number] [place] [address] May, [facility] [id number] [place] [address] Apr, [facility] [address] [id number] [place] [address] Apr, [facility] [id number] [place] [address] Apr, [facility] [address] [id number] [place] [address] Apr, [facility] [address] [id number] [place] [address] Apr, [facility] [address] [id number] [place] [address] Apr, [facility] [address] [id number] [place] [address] Apr, [facility] [address] [id number] [place] [address] Mar, [facility] [address] [id number] [place] [address] Mar, [facility] [address] [id number] [place] [address] Mar, [facility] [address] [id number] [place] [address] Mar, [facility] [address] [id number] [place] [address] Mar, [facility] [address] [id number] [place] [address] Mar, [facility] [address] [id number] [place] [address] Mar, [facility] [address] [id number] [place] [address] Mar, [facility] [address] [id number] [place] [address] Mar, [facility] [address] [id number] [place] [address] Mar, [facility] [address] [id number] [place] [address] Mar, [facility] [address] [id number] [place] [address] Mar, [facility] [address] [id number] [place] [address] Feb, [facility] [address] [id number] [place] [address] Jan, [facility] [address] [id number] [place] [address] Jan, [facility] [address] [id number] [place] [address] Jan, [facility] [address] [id number] [place] [address] Jan, [facility] [address] [id number] [place] [address] Jan, [facility] [address] [id number] [place] [address] Dec, [facility] [address] [id number] [place] [address] Dec, [facility] [address] [id number] [place] [address] Nov, [facility] [address] [id number] [place] [address] Nov, [facility] [address] [id number] [place] [address] Nov, [facility] [address] [id number] [place] [address] October, [facility] [address] [id number] [place] [address] October, [facility] [address] [id number] [place] [address] October, [facility] [address] [id number] [place] [address] October, [facility] [address] [id number] [place] [address] October, [facility] [address] [id number] [place] [address] October, [facility] [address] [id number] [place] [address] October, [facility] [address] [id number] [place] [address] 26 Sep, 2011 [facility] [address] [id number] [place] [address] Sep, [facility] [address] [id number] [place] [address] 26 Sep, 2011 [facility] [address] [id number] [place] [address] 25 Sep, 2011 [facility] [address] [id number] [place] [address] 24 Sep, 2011 [facility] [address] [id number] [place] [address] 19 Sep, 2011 [facility] [address] [id number] [place] [address] 17 Sep, 2011 [facility] [address] [id number] [place] [address] 16 Sep, 2011 [facility] [address] [id number] [place] [address] 16 Sep, 2011 [facility] [address] [id number] [place] [address] 14 Sep, 2011 [facility] [address] [id number] [place] [address] 13 Sep, 2011 [facility] [address] [id number] [place] [address] 10 Sep, 2011 [facility] [address] [id number] [place] [address] 09 Sep, 2011 [facility] [address] [id number] [place] [address] 27 Aug, 2011 [facility] [address] [id number] [place] [address] 12 Aug, 2011 [facility] [address] [id number] [place] [address] 08 Aug, 2011 [facility] [address] [id number] [facility] [place] [address] Aug, [facility] [address] [id number] [facility] [place] [address] 28 Jul, 2011 [facility] [address] [id number] [facility] [place] [address] 22 Jul, 2011 [facility] [address] [id number] [facility] [place] [address] 16 Jul, 2011 [facility] [address] [id number] [facility] [place] [address] 15 Jul, 2011 [facility] [address] [id number] [facility] [place] [address] 14 Jul, 2011 [facility] [address] [id number] [place] [address] Jul, [facility] [address] [id number] [place] [address] Jun, [facility] [address] [id number] [place] [address] Jun, [facility] [address] [id number] [place] [address] Jun, [facility] [address] [id number] [place] [address] Jun, [facility] [address] [id number] [place] [address] Jun, [facility] [address] [id number] [place] [address] May, [facility] [address] [id number] [place] [address] May, [facility] [address] [id number] [place] [address] May, [facility] [address] [id number] [place] [address] May, [facility] [address] [id number] [place] [address] May, [facility] [address] [id number] [place] [address] May, [facility] [address] [id number] [place] [address] May, [facility] [address] [id number] [place] [address] Apr, [facility] [address] [id number] [place] [address] Apr, [facility] [address] [id number] [place] [address] Apr, [facility] [address] [id number] [place] [address] Apr, [facility] [address] [id number] [place] [address] Apr, [facility] [address] [id number] [place] [address] Apr, [facility] [address] [id number] [place] [address] Mar, [facility] [address] [id number] [place] [address] Mar, [facility] [address] [id number] [place] [address] Mar, [facility] [address] [id number] [place] [address] Mar, [facility] [address] [id number] [place] [address] Jan, [facility] [address] [id number] [place] [address] Dec, [facility] [address] [id number] [place] [address] Dec, [facility] [address] [id number] [place] [address] October, [facility] [address] [id number] [place] [address] Sep, [facility] [address] [id number] [place] [address] 14 Sep, 2010 [facility] [address] [id number] [place] [address] Jul, [facility] [address] [id number] [place] [address] Jul, [facility] [address] [id number] [place] [address] May, [facility] [address] [id number] [place] [address] May, [facility] [address] [id number] [place] [address] May, [facility] [id number] [place] [address] May, [facility] [address] [id number] [place] [address] Apr, [facility] [id number] [place] [address] Apr, [facility] [address] [id number] [place] [address] Apr, [facility] [id number] [place] [address] Apr, [facility] [address] [id number] [place] [address] Apr, [facility] [address] [id number] [place] [address] Mar, [facility] [address] [id number] [place] [address] 14 Mar, 2010 [facility] [address] [id number] [place] [address] 13 Mar, 2010 [facility] [id number] [place] [address] Mar, [facility] [address] [id number] [place] [address] Jan, [facility] [id number] [place] [address] Dec, [facility] [id number] [place] [address] Sep, [facility] [id number] [place] [address] May, [facility] [id number] [place] [address] May, [facility] [id number] [place] [address] May, [facility] [id number] [place] [address] Apr, [facility] [id number] [place] [address] Apr, [facility] [id number] [place] [address] Apr, [facility] [id number] [place] [address] Apr, [facility] [id number] [place] [address] Apr, [facility] [id number] [place] [address] Mar, [facility] [id number] [place] [address] Mar, [facility] [id number] [place] [address] Jul, IMMUNIZATIONS No Known Immunizations SOCIAL HISTORY Never Assessed REASON FOR VISIT PLAN OF CARE VITAL SIGNS Height 62 in 2013-12-15 Weight 258.2 lbs 2013-12-15 Temperature 98.6 degrees Fahrenheit 2013-12-15 Heart Rate 92 bpm 2013-12-15 Respiratory Rate 14 2013-12-15 Blood pressure systolic 138 mmHg 2013-12-15 Blood pressure diastolic 80 mmHg 2013-12-15 MEDICATIONS Unknown Medications RESULTS No Results PROCEDURES [...] and replaced VC 10/2018 Hospitalization History Cellulitis-[facility] [place]- Abd pain 03/07/2017 [facility] [place]- Abd pain 03/14/2017 [facility] [place]- No bowel movement, rash 04/13/2017 [facility]ization [facility] [place]- Abd pain r/ t kidney surgery on 04/10/17 04/17/2017 [facility]ization [facility] [place]- Abd pain r/ t kidney surgery on 04/10/17 04/18/2017 [facility]ization History [facility] [place]- Lower abd pain 04/17 Hospitalization History [facility] [place]- Cannot urinate 05/17 Hospitalization History [facility] [place]- Pancreatitis Sx Hospitalization History [facility] [place]- Stomach pain 2017 Hospitalization History [facility] [place]- Left side pain 07/19 Hospitalization History [facility]- Incision site infec tion 08/30/[address] [facility]- Post Op Serom a/Hematoma Left Abdomen. Discharged 09/04/17- Dr Daniel 09/02/2017 Hospitalization History [facility]- Right shoulder and back pain 10/22/2017 Hospitalization History [facility]- Shoulder/Back pain 11/11/2017 Hospitalization History [facility]- Right shoulder blad e pain 12/04/2017 Hospitalization History [facility]- C-Diff 12/13/2017 Hospitalization History C diff et MRSA 12/27/2017 Hospitalization History [facility] Bowel Obstruction 10/2018 Hospitalization History [facility]- Abdominal pain and nausea 01/08/2019
--- OUTSIDE RECORDS SUMMARY | 2019-10-17 05:13 | XMS REPORT ---
Author Author Janeth Jensen Organization [facility] Address [address] [place] [address] Care Team Providers Care Biomedical Engineering Internship Name Role Phone RAQUEL Jensen Unavailable PROBLEMS Type Condition ICD9-CM Code [id number] Code Onset Dates Condition S tatus SNOMED Code Problem History of renal cell carcinoma Z85.528 Active 465847035 Problem Hepatic steatosis K76.0 Active 19 6902451 Problem Nodule of left lung R91.1 Active 299591900 Problem Right carpal tunnel syndrome G56.01 A ctive 174802375433583 Problem Mild obstructive sleep apnea G47.33 A ctive 52910761 Problem Moderate episode of recurrent major depressive disorder F33.1 Active 074826569 Problem Trichotillomania F63.3 Active 171 83817 Problem Morbid (severe) obesity due to excess calories E66 .01 Active 798398199 Problem Chronic tension-type headache, intractable G44.221 Active 189610787 Problem Asthma J45.909 Active 515365667 Problem Chronic pancreatitis K86.1 Active 454087940 Problem Atelectasis J98.11 Active 00201268 Problem Polydipsia R63.1 Active 48292622 Problem Chronic post-traumatic stress disorder (PTSD) F43. 12 Active 389219971 Problem Restless leg syndrome G25.81 Active 43885286 Problem Chronic fatigue R53.82 Active 8422 9001 Problem Intestinal malabsorption, unspecified K90.9 Active 92515246 Problem Primary osteoarthritis of right knee M17.11 Active 798689979796181 Problem Social phobia, generalized F40.11 Act yolanda 41508619 Problem FH: polycystic ovary Z84.2 Active 466141919 Problem Social phobia, unspecified F40.10 Act yolanda 70606101 Problem Hirsuties L68.0 Active 158203770 Problem Hyperlipidemia, mixed E78.2 Active 787201222 Problem Obesities, morbid E66.01 Active 23 7419923 Problem Menopausal symptoms N95.1 Active 79491097 Problem Conflict between patient and family Z63.9 Active 90347022 Problem Morbid obesity E66.01 Active 95067 6002 ALLERGIES No Information ENCOUNTERS Encounter Location Date Diagnosis [facility] [id number] [place] [address] Jul, [facility] [address] [address] Jun, [facility] [address] [address] Jun, [facility] [address] [address] Jun, [facility] [address] [address] Jun, [facility] [address] [address] May, [address] [place] [address] May, [facility] [id number] [place] [address] May, [facility] [address] [address] May, [facility] [id number] [place] [address] May, [facility] [address] [address] Apr, [facility] [id number] [place] [address] Apr, [facility] [address] [address] Apr, [facility] [address] [address] Mar, Cervical radiculopathy M54.12 [facility] [address] [place] [address] Mar, [facility] [id number] [place] [address] Mar, [facility] [address] [address] Mar, [facility] [address] [address] Mar, [facility] [address] [address] Mar, [facility] [address] [address] Mar, [facility] [address] [address] Mar, [facility] [address] [address] Feb, Chronic cough R05 [facility] [address] [address] Feb, [facility] [id number] [place] [address] Feb, [facility] [address] [address] Feb, Cervical radiculopathy M54.12 [facility] [address] [address] Feb, Pain of left thumb M79.645 [facility] [id number] [place] [address] Feb, [facility] [address] [address] Feb, [facility] [address] [address] Feb, [facility] [address] [address] Feb, Cough present for greater than 3 weeks R 05 [address] [address] [address] Feb, Cough present for greater than 3 weeks R 05 ; Feels sick R68.89 ; History of renal cell carcinoma Z85.528 and Morbid obesity E66.01 [place] [address] [address] Jan, [facility] [id number] [place] [id number] Jan, Oral health maintenance status requiring routine preventive dental care K08.9 ; Dental examination Z01.20 and Caries K02.9 [place] [address] [address] Jan, Dysuria R30.0 [place] [address] [address] Jan, Dysuria R30.0 [place] [address] [address] Jan, Viral pharyngitis J02.9 and Morbid obesi ty E66.01 [place] [address] [address] Jan, [place] [address] [address] Jan, Left sided abdominal pain R10.9 ; Other acute postprocedural pain G89.18 ; History of renal cell carcinoma Z85.528 and Morbid obesity E66.01 [place] [address] [address] Dec, Dental examination Z01.20 [place] [address] [address] Dec, Elevated LFTs R94.5 [place] [address] [address] Dec, Encounter for Medicare annual wellness e xam Z00.00 ; Chronic tension- type headache, intractable G44.221 ; Morbid (severe) obesity due to excess calories E66.01 ; Hyperlipidemia, mixed E78.2 ; Chronic pancreatitis K86.1 ; Asthma J45.909 ; Moderate episode of recurrent major depressive disorder F33.1 ; Chronic fatigue R53.82 and Social phobia, unspecified F40.10 [place] [address] [address] Dec, [place] [address] [address] Dec, [place] [address] [address] Dec, [place] [address] [address] Dec, Hyperlipidemia, mixed E78.2 ; History of renal cell carcinoma Z85.528 and Restless leg syndrome G25.81 [place] [address] [address] Dec, Hyperlipidemia, mixed E78.2 ; Chronic pa ncreatitis K86.1 ; Restless leg syndrome G25.81 ; Nodule of left lung R91.1 ; History of renal cell carcinoma Z85.528 ; Leg swelling M79.89 ; Morbid obesity E66.01 and Observed sleep apnea G47.30 [place] [address] [address] Nov, [place] [address] [address] Nov, [place] [address] [address] Nov, [facility] [address] [facility] [id number] [address] [place] [address] Nov, Other acute postprocedural p ain G89.18 and Unspecified abdominal pain R10.9 [facility] [address] [address] October, [place] [address] [address] October, Social phobia, generalized F40.11 ; Conf lict between patient and family Z63.9 and Morbid obesity E66.01 [facility] [id number] [place] [address] October, [facility] [address] [id number] [place] [address] October, [facility] [id number] [place] [address] October, [facility] [address] [id number] [place] [address] October, [address] [place] [address] October, [facility] [address] [id number] [place] [address] October, [address] [place] [address] October, [facility] [address] [id number] [place] [address] October, Morbid obesity E66.01 ; Routine gynecolo gical examination Z01.419 and Menopausal symptoms N95.1 [facility] [address] [id number] [place] [address] October, [address] [place] [address] Sep, [facility] [address] [id number] [place] [address] Sep, [facility] [address] [id number] [place] [address] Sep, [facility] [address] [id number] [place] [address] Sep, [facility] [address] [id number] [place] [address] Sep, Lower extremity edema R60.0 [facility] [address] [id number] [place] [address] Sep, [facility] [address] [facility] [id number] [address] [place] [address] Sep, Lower extremity edema R60.0 and Morbid obesity E66.01 [facility] [address] [id number] [place] [address] Sep, [facility] [id number] [place] [address] Sep, [facility] [address] [id number] [place] [address] Aug, [facility] [id number] [place] [address] Aug, Obesities, morbid E66.01 and Morbid obes ity E66.01 [facility] [address] [id number] [place] [address] Aug, [facility] [address] [place] [address] Jul, [facility] [id number] [place] [address] Jul, [facility] [address] [id number] [place] [address] Jul, [facility] [address] [id number] [place] [address] Jul, Numbness of right hand R20.0 [facility] [address] [id number] [place] [address] Jul, [facility] [id number] [place] [address] Jul, Numbness of right hand R20.0 [facility] [address] [id number] [place] [address] Jul, [facility] [id number] [place] [address] Jul, [facility] [address] [address] Jul, Right-sided thoracic back pain M54.6 [facility] [address] [address] Jul, [facility] [address] [address] Jul, [facility] [address] [address] Jul, [facility] [address] [address] Jul, [facility] [address] [address] Jun, [facility] [address] [address] Jun, Acute pain of right shoulder M25.511 ; N umbness of right hand R20.0 and Trapezius muscle spasm M62.838 [facility] [address] [address] Jun, [facility] [address] [address] Jun, [facility] [address] [address] Jun, Cough R05 ; BMI 50.0-59.9, adult Z68.43 and Morbid obesity E66.01 [facility] [address] [address] Jun, [facility] [address] [address] Jun, [facility] [id number] [place] [address] Jun, BMI 45.0-49.9, adult Z68.42 and Acute non-recurrent maxillary sinusitis J01.00 [facility] [id number] [place] [address] Jun, Acute sinusitis J01.90 ; Dys uria R30.0 and BMI 45.0- 49.9, adult Z68.42 [place] [address] [address] Jun, [place] [address] [address] Jun, [place] [address] [address] May, [place] [address] [address] May, [place] [address] [address] May, [place] [address] [address] May, [place] [address] [address] May, [place] [address] [address] Apr, Generalized social phobia F40.11 ; Trich otillomania F63.3 ; Chronic post-traumatic stress disorder (PTSD) F43.12 and BMI 45.0-49.9, adult Z68.42 [place] [address] [address] Apr, [place] [address] [address] 15 Apr, 2018 Chronic tension-type headache, intractab le G44.221 [place] [address] [address] 13 Apr, 2018 [facility] [id number] [place] [address] Mar, [facility] [address] [address] Mar, BMI 45.0-49.9, adult Z68.42 and Pimples R23.8 [place] [address] [address] Mar, [facility] [address] [address] Mar, [place] [address] [address] Mar, Decreased urination R34 ; Chronic fatigu e R53.82 ; Peripheral edema R60.9 ; Diarrhea, unspecified type R19.7 ; Non-intractable vomiting with nausea, unspecified vomiting type R11.2 ; BMI 45.0-49.9, adult Z68.42 and Chronic post- traumatic stress disorder (PTSD) F43.12 [place] [address] [address] Mar, Intestinal malabsorption, unspecified K9 0.9 ; Diarrhea, unspecified R19.7 ; Urinary urgency R39.15 ; Rectal bleeding K62.5 and Decreased urine output R34 [place] [address] [address] Mar, Decreased urine output R34 [place] [address] [address] Mar, Rectal bleeding K62.5 [place] [address] [address] Mar, Rectal bleeding K62.5 [place] [address] [address] Mar, Urinary urgency R39.15 [place] [address] [address] Mar, Urinary urgency R39.15 [place] [address] [address] Mar, Primary osteoarthritis of right knee M17 .11 and BMI 45.0-49.9, adult Z68.42 [facility] [address] [address] Mar, [facility] [address] [address] Feb, Left upper arm pain M79.622 [facility] [address] [address] Feb, [facility] [address] [address] Jan, Acute pain of right knee M25.561 ; Right upper quadrant abdominal pain R10.11 and BMI 45.0-49.9, adult Z68.42 [facility] [address] [address] Jan, [facility] [address] [address] Jan, [facility] [address] [address] Dec, [facility] [address] [address] Dec, Intestinal malabsorption, unspecified K9 0.9 and Diarrhea, unspecified R19.7 [facility] [address] [address] Dec, [facility] [address] [address] Dec, Strep throat J02.0 ; Intestinal malabsor ption, unspecified K90.9 ; Diarrhea, unspecified R19.7 ; Postoperative seroma involving digestive system after non-digestive system procedure K91.873 ; Hyperlipidemia, mixed E78.2 and BMI 45.0-49.9, adult Z68.42 [facility] [address] [address] Dec, [facility] [address] [address] Dec, Nausea R11.0 [facility] [address] [id number] [place] [address] Dec, [facility] [address] [facility] [id number] [address] [place] [address] Dec, Sore throat J02.9 ; Strep th roat J02.0 and BMI 45.0- 49.9, adult Z68.42 [facility] [id number] [place] [address] Dec, [facility] [id number] [place] [address] Dec, [facility] [id number] [place] [address] Dec, [facility] [id number] [place] [address] Dec, [facility] [id number] [place] [address] Dec, [facility] [id number] [place] [address] Dec, [facility] [id number] [place] [address] Dec, [facility] [id number] [place] [address] Dec, [facility] [id number] [place] [address] Dec, Clostridium difficile colitis A04.72 ; I ntractable vomiting with nausea, unspecified vomiting type R11.2 and BMI 45.0-49.9, adult Z68.42 [facility] [id number] [place] [address] Dec, [facility] [id number] [place] [address] Nov, [facility] [id number] [place] [address] Nov, [facility] [id number] [place] [address] Nov, [place] [address] [address] Nov, [facility] [place] [address] [facility] [id number] [address] [place] [address] Nov, [place] [address] [address] Nov, Hyperlipidemia, mixed E78.2 [facility] [place] [address] [facility] [id number] [address] [place] [address] Nov, Acute suppurative otitis med ia of right ear without spontaneous rupture of tympanic membrane, recurrence not specified H66.001 and BMI 45.0-49.9, adult Z68.[address] [address] Nov, Hyperlipidemia, mixed E78.2 [place] [address] [address] Nov, [place] [address] [address] Nov, [address] [address] Nov, Nodule of left lung R91.[address] [address] 04 Nov, 2017 Medicare annual wellness visit, [...] adult Z68.42 and Encounter for immunization Z23 [address] [address] October, [place] [address] [address] October, Nodule of left lung R91.1 [place] [address] [address] October, Nodule of left lung R91.1 [place] [address] [address] October, Recurrent major depressive disorder, in partial remission F33.41 ; Restless leg syndrome G25.81 ; Generalized social phobia F40.11 ; Chronic post- traumatic stress disorder (PTSD) F43.12 ; BMI 45.0-49.9, adult Z68.42 and Trichotillomania F63.3 [place] [address] [address] October, [place] [address] [address] Sep, Chronic fatigue R53.82 and BMI 45.0-49.9 , adult Z68.42 [place] [address] [address] Aug, [place] [address] [address] Jul, Restless leg syndrome G25.81 and B12 def iciency E53.8 [place] [address] [address] Jul, [place] [address] [address] Jul, [place] [address] [address] Jun, [place] [address] [address] Jun, Fatigue, unspecified type R53.83 ; Histo ry of renal cell carcinoma Z85.528 ; Chronic pancreatitis K86.1 ; Restless leg syndrome G25.81 ; Dark urine R82.99 and BMI 45.0-49.9, adult Z68.42 [place] [address] [address] Jun, [facility] [address] [address] Jun, [place] [address] [address] Jun, [facility] [address] [address] Jun, [place] [address] [address] May, Chronic post-traumatic stress disorder ( PTSD) F43.12 ; Moderate episode of recurrent major depressive disorder F33.1 ; Trichotillomania F63.3 and Generalized social phobia F40.11 [place] [address] [address] May, [place] [address] [address] May, Chronic post-traumatic stress disorder ( PTSD) F43.12 ; Moderate episode of recurrent major depressive disorder F33.1 ; Trichotillomania F63.3 and Generalized social phobia F40.11 [place] [address] [address] May, Hyperlipidemia, mixed E78.2 ; Morbid (se nehemias) obesity due to excess calories E66.01 ; Chronic post-traumatic stress disorder (PTSD) F43.12 ; Moderate episode of recurrent major depressive disorder F33.1 ; Trichotillomania F63.3 and Generalized social phobia F40.11 [place] [address] [address] Apr, [place] [address] [address] Apr, Hyperlipidemia, mixed E78.2 ; Morbid (se nehemias) obesity due to excess calories E66.01 ; Chronic post-traumatic stress disorder (PTSD) F43.12 ; Moderate episode of recurrent major depressive disorder F33.1 ; Trichotillomania F63.3 and Generalized social phobia F40.11 [facility] [address] [address] Apr, Trichotillomania F63.3 ; Generalized soc ial phobia F40.11 ; Chronic post-traumatic stress disorder (PTSD) F43.12 and Moderate episode of recurrent major depressive disorder F33.1 [place] [address] [address] Apr, [place] [address] [address] Apr, [place] [address] [address] Mar, Moderate episode of recurrent major depr essive disorder F33.1 ; Trichotillomania F63.3 ; Chronic post-traumatic stress disorder (PTSD) F43.12 ; Generalized social phobia F40.11 and Restless leg syndrome G25.81 [place] [address] [address] Mar, [place] [address] [address] Mar, [place] [address] [address] Feb, Left kidney mass N28.89 [place] [address] [address] Jan, [place] [address] [address] Dec, Polydipsia R63.1 ; Chronic pancreatitis K86.1 and Fatigue, unspecified type R53.83 [place] [address] [address] Nov, [place] [address] [address] 13 Nov, 2016 [facility] [place] [address] [address] Nov, Headache around the eyes R51 [place] [address] [address] Nov, [place] [address] [address] October, STD exposure Z20.2 [place] [address] [address] October, STD exposure Z20.2 [place] [address] [address] October, Chronic post-traumatic stress disorder ( PTSD) F43.12 ; Generalized social phobia F40.11 ; Trichotillomania F63.3 and Restless leg syndrome G25.81 [place] [address] [address] October, [place] [address] [address] Sep, [place] [address] [address] Aug, [place] [address] [address] Aug, [place] [address] [address] 08 Aug, 2016 Neck mass R22.1 [place] [address] [address] Aug, Atelectasis J98.11 [place] [address] [address] 28 Jul, 2016 Hyperlipidemia, mixed E78.2 ; Atypical p neumonia J18.9 and Neck mass R22.1 [place] [address] [address] 15 Jul, 2016 Hemoptysis R04.2 [place] [address] [id number] [place] [address] 08 Jul, 2016 Acute non-recurrent pansinusitis J01.40 ; Hemoptysis R04.2 ; Polydipsia R63.1 and Malaise R53.81 [facility] [place] [address] [place] [address] May, Other viral agents as the ca use of diseases classified elsewhere B97.89 and Acute upper respiratory infection, unspecified J06.9 [facility] [place] [address] [place] [id number] [place] [address] Mar, Nausea R11.0 [facility] [place] [address] [address] 28 Dec, 2015 Hives L50.9 [place] [address] [id number] [place] [address] Dec, [facility] [place] [address] [place] [id number] [address] [place] [address] Dec, Cutaneous abscess of limb, u nspecified L02.419 ; Cellulitis of unspecified part of limb L03.119 ; Encounter for incision and drainage procedure Z01.89 and Encounter for recheck of abscess following i ncision and drainage Z09 [facility] [place] [id number] [place] [address] 09 Dec, 2015 Abscess of leg, right L02.41 5 [place] [address] [id number] [place] [address] 08 Dec, 2015 Cellulitis of unspecified part of limb L 03.119 and Cutaneous abscess of limb, unspecified L02.419 [place] [address] [id number] [place] [address] Dec, [place] [address] [id number] [place] [address] Dec, [facility] [address] [place] [id number] [place] [address] 07 Aug, 2015 [place] [address] [address] 04 Aug, 2015 [facility] [address] [facility] [id number] [address] [place] [address] 04 Jul, 2015 Pain in unspecified wrist M2 5.539 and Back pain, thoracic M54.6 [facility] [address] [facility] [id number] [address] [place] [address] Jun, Strain of right wrist, initi al encounter S66.911A [place] [address] [address] Jun, Chronic pancreatitis, unspecified pancre atitis type K86.1 ; Hirsuties L68.0 ; Morbid (severe) obesity due to excess calories E66.01 ; Chronic pancreatitis K86.1 and Asthma J45.909 [place] [address] [address] May, [place] [address] [address] May, Hyperlipidemia, mixed E78.2 and Muscle s pasm of back M62.830 [place] [address] [address] 30 Apr, 2015 [place] [address] [address] 16 Apr, 2015 Torticollis M43.6 [place] [address] [address] 09 Apr, 2015 Right-sided thoracic back pain M54.6 [place] [address] [address] 15 Mar, 2015 Rash R21 [place] [address] [address] 06 Mar, 2015 [place] [address] [address] Jan, [facility] [address] [address] Dec, [facility] [address] [address] Dec, Urinary frequency 788.41 and Nocturia mo re than twice per night 788.43 [facility] [address] [address] Nov, [facility] [address] [address] Nov, [facility] [address] [address] Nov, Abdominal pain 789.00 [facility] [address] [address] October, TDAP DX V06.1 [facility] [address] [address] October, [facility] [address] [address] October, Disturbance of skin sensation 782.0 ; Wr ist pain, right 719.43 ; Hyperlipidemia 272.4 and Skin lesion of face 709.9 [facility] [address] [address] Sep, [facility] [address] [address] Sep, [facility] [address] [address] Aug, [facility] [address] [address] Aug, [facility] [address] [address] Aug, [facility] [address] [address] Aug, [facility] [address] [id number] [place] [address] 16 Aug, 2014 [facility] [address] [id number] [place] [address] 16 Aug, 2014 [facility] [address] [id number] [place] [address] 14 Aug, 2014 [facility] [address] [id number] [place] [address] 14 Aug, 2014 [facility] [address] [id number] [place] [address] 11 Aug, 2014 [facility] [address] [id number] [place] [address] Aug, [facility] [address] [id number] [place] [address] 04 Aug, 2014 [facility] [address] [id number] [place] [address] Aug, [facility] [address] [id number] [place] [address] Aug, [facility] [address] [id number] [place] [address] Aug, [facility] [address] [id number] [place] [address] Jul, 2014 [facility] [address] [id number] [place] [address] 23 Jul, 2014 [facility] [address] [id number] [place] [address] Jul, 2014 [facility] [address] [id number] [place] [address] Jul, 2014 [facility] [address] [id number] [place] [address] 04 Jul, 2014 [facility] [address] [id number] [place] [address] 04 Jul, 2014 [facility] [address] [id number] [place] [address] Jun, [facility] [address] [facility] [id number] [place] [address] Jun, [facility] [address] [id number] [place] [address] Jun, [facility] [address] [id number] [place] [address] Jun, [facility] [address] [id number] [place] [address] Jun, [facility] [address] [facility] [id number] [place] [address] Jun, [facility] [address] [id number] [place] [address] Jun, [facility] [address] [id number] [place] [address] Jun, [facility] [address] [id number] [place] [address] May, [facility] [address] [id number] [place] [address] May, [facility] [address] [id number] [place] [address] 18 May, 2014 [facility] [address] [id number] [place] [address] 18 May, 2014 [facility] [address] [id number] [place] [address] 15 May, 2014 [facility] [address] [id number] [place] [address] 15 May, 2014 [facility] [address] [id number] [place] [address] May, [facility] [address] [id number] [place] [address] May, [facility] [address] [id number] [place] [address] 09 May, 2014 [facility] [address] [id number] [place] [address] May, [facility] [address] [id number] [place] [address] May, [facility] [address] [id number] [place] [address] May, [facility] [address] [id number] [place] [address] Apr, [facility] [address] [id number] [place] [address] Apr, [facility] [address] [id number] [place] [address] Apr, [facility] [address] [id number] [place] [address] Apr, [facility] [address] [id number] [place] [address] Apr, [facility] [address] [id number] [place] [address] Apr, [facility] [address] [id number] [place] [address] Apr, [facility] [address] [id number] [place] [address] Apr, [facility] [address] [id number] [place] [address] Apr, [facility] [address] [id number] [place] [address] Apr, [facility] [address] [id number] [place] [address] Apr, [facility] [address] [place] [id number] [place] [address] Apr, [facility] [address] [id number] [place] [address] 14 Mar, 2014 [facility] [address] [id number] [place] [address] Mar, [facility] [address] [id number] [place] [address] Mar, [facility] [address] [facility] [id number] [place] [address] Mar, [facility] [address] [facility] [id number] [place] [address] Feb, 2013 [facility] [address] [facility] [id number] [place] [address] Feb, 2013 [facility] [address] [facility] [id number] [place] [address] Feb, 2013 [facility] [address] [facility] [id number] [place] [address] Feb, 2013 [facility] [address] [id number] [place] [address] Feb, 2013 [facility] [address] [id number] [place] [address] Feb, 2013 [facility] [address] [facility] [id number] [place] [address] Jan, [facility] [address] [id number] [place] [address] Jan, [facility] [address] [id number] [place] [address] Jan, [facility] [address] [id number] [place] [address] Jan, [facility] [address] [facility] [id number] [place] [address] Jan, [facility] [address] [facility] [id number] [place] [address] Jan, [facility] [address] [facility] [id number] [place] [address] Jan, [facility] [address] [id number] [place] [address] Jan, [facility] [address] [id number] [place] [address] Jan, [facility] [address] [facility] [id number] [place] [address] Jan, [facility] [address] [facility] [id number] [place] [address] Jan, [facility] [address] [id number] [place] [address] Jan, [facility] [address] [facility] [id number] [facility] [address] Jan, [facility] [address] [facility] [id number] [place] [address] Jan, [facility] [address] [facility] [id number] [place] [address] Dec, [facility] [address] [id number] [place] [address] Dec, [facility] [address] [id number] [place] [address] Dec, [facility] [address] [id number] [place] [address] Dec, [facility] [address] [id number] [place] [address] Nov, [facility] [address] [id number] [place] [address] Nov, [facility] [address] [id number] [place] [address] Nov, [facility] [address] [facility] [id number] [place] [address] Nov, [facility] [address] [id number] [place] [address] Nov, [facility] [address] [id number] [place] [address] October, [facility] [address] [id number] [place] [address] October, [facility] [address] [id number] [place] [address] October, [facility] [address] [id number] [place] [address] October, [facility] [address] [id number] [place] [address] October, [facility] [address] [id number] [place] [address] October, [facility] [address] [id number] [place] [address] October, [facility] [address] [id number] [place] [address] October, [facility] [address] [id number] [place] [address] October, [facility] [address] [id number] [place] [address] October, [facility] [address] [id number] [place] [address] October, [facility] [address] [id number] [place] [address] October, [facility] [address] [id number] [place] [address] October, [facility] [address] [id number] [place] [address] October, [facility] [address] [id number] [place] [address] Sep, [facility] [address] [id number] [place] [address] 17 Sep, 2013 [facility] [address] [id number] [place] [address] 14 Sep, 2013 [facility] [address] [id number] [place] [address] 14 Sep, 2013 [facility] [address] [id number] [place] [address] Sep, [facility] [address] [facility] [id number] [place] [address] Sep, [facility] [address] [id number] [place] [address] Sep, [facility] [address] [id number] [place] [address] Sep, [facility] [address] [id number] [place] [address] Sep, [facility] [address] [id number] [place] [address] Sep, [facility] [address] [id number] [place] [address] Sep, [facility] [address] [id number] [place] [address] Sep, [facility] [address] [id number] [place] [address] Sep, [facility] [address] [id number] [place] [address] Sep, [facility] [address] [id number] [place] [address] Sep, [facility] [address] [id number] [place] [address] Aug, [facility] [address] [id number] [place] [address] Aug, [facility] [address] [id number] [place] [address] Aug, [facility] [address] [id number] [place] [address] Aug, [facility] [address] [id number] [place] [address] Jul, [facility] [address] [id number] [place] [address] Jul, [facility] [address] [id number] [place] [address] 06 Jul, 2013 [facility] [address] [facility] [id number] [place] [address] 03 Jul, 2013 [facility] [address] [id number] [place] [address] Jun, [facility] [address] [id number] [place] [address] 15 Jun, 2013 [facility] [address] [id number] [place] [address] 15 Jun, 2013 [facility] [address] [id number] [place] [address] Jun, [facility] [address] [id number] [place] [address] Jun, [facility] [address] [id number] [place] [address] Jun, [facility] [address] [id number] [place] [address] 08 Jun, 2013 [facility] [address] [id number] [place] [address] 08 Jun, 2013 [facility] [address] [id number] [place] [address] May, [facility] [address] [id number] [place] [address] May, [facility] [address] [id number] [place] [address] 18 May, 2013 [facility] [address] [id number] [place] [address] 18 May, 2013 [facility] [address] [id number] [place] [address] 17 May, 2013 [facility] [address] [facility] [id number] [place] [id number] 17 May, 2013 [facility] [address] [id number] [place] [address] 17 May, 2013 [facility] [address] [id number] [place] [address] 17 May, 2013 [facility] [address] [id number] [place] [address] 16 May, 2013 [facility] [address] [id number] [place] [address] 16 May, 2013 [facility] [address] [id number] [place] [address] 14 May, 2013 [facility] [address] [id number] [place] [address] 14 May, 2013 [facility] [address] [id number] [place] [address] 13 May, 2013 [facility] [address] [id number] [place] [address] 13 May, 2013 [facility] [address] [id number] [place] [address] 12 May, 2013 [facility] [address] [id number] [place] [address] 12 May, 2013 [facility] [address] [id number] [place] [address] 11 May, 2013 [facility] [address] [id number] [place] [address] 11 May, 2013 [facility] [address] [id number] [place] [address] 26 Apr, 2013 [facility] [address] [id number] [place] [address] Apr, [facility] [address] [id number] [place] [address] Apr, [facility] [address] [id number] [place] [address] Apr, [facility] [address] [id number] [place] [address] 27 Aug, 2012 [facility] [address] [id number] [place] [address] 18 Aug, 2012 [facility] [address] [id number] [place] [address] Aug, [facility] [address] [id number] [place] [address] Aug, [facility] [address] [id number] [place] [address] Jul, [facility] [address] [id number] [place] [address] Jun, [facility] [address] [id number] [place] [address] Jun, [facility] [address] [id number] [place] [address] Jun, [facility] [address] [id number] [place] [address] Jun, [facility] [id number] [place] [address] May, [facility] [address] [id number] [place] [address] May, [facility] [id number] [place] [address] May, [facility] [address] [id number] [place] [address] May, [facility] [id number] [place] [address] May, [facility] [address] [id number] [place] [address] May, [facility] [address] [id number] [place] [address] May, [facility] [address] [id number] [place] [address] Apr, [facility] [address] [id number] [place] [address] Apr, [facility] [address] [id number] [place] [address] Apr, [facility] [address] [facility] [id number] [place] [address] Apr, [facility] [address] [id number] [place] [address] Apr, [facility] [address] [id number] [place] [address] Apr, [facility] [address] [id number] [place] [address] Apr, [facility] [address] [id number] [place] [address] Mar, [facility] [address] [id number] [place] [address] Mar, [facility] [address] [id number] [place] [address] Mar, [facility] [address] [id number] [place] [address] Mar, [facility] [address] [id number] [place] [address] Mar, [facility] [address] [id number] [place] [address] Mar, [facility] [address] [id number] [place] [address] Mar, [facility] [address] [id number] [place] [address] Mar, [facility] [address] [id number] [place] [address] Mar, [facility] [address] [id number] [place] [address] Mar, [facility] [address] [id number] [place] [address] Mar, [facility] [address] [id number] [place] [address] Mar, [facility] [address] [facility] [id number] [place] [address] Feb, [facility] [address] [id number] [place] [address] Jan, [facility] [address] [facility] [id number] [place] [address] Jan, [facility] [address] [id number] [place] [address] Jan, [facility] [address] [id number] [place] [address] Jan, [facility] [address] [id number] [place] [address] Jan, [facility] [address] [id number] [place] [address] Dec, [facility] [address] [id number] [place] [address] Dec, [facility] [address] [id number] [place] [address] Nov, [facility] [address] [id number] [place] [address] Nov, [facility] [address] [id number] [place] [address] Nov, [facility] [address] [id number] [place] [address] October, [facility] [address] [id number] [place] [address] October, [facility] [address] [id number] [place] [address] October, [facility] [address] [id number] [place] [address] October, [facility] [address] [id number] [place] [address] October, [facility] [address] [id number] [place] [address] October, [facility] [address] [id number] [place] [address] October, [facility] [address] [id number] [place] [address] Sep, [facility] [address] [id number] [place] [address] Sep, [facility] [address] [id number] [place] [address] Sep, [facility] [address] [id number] [place] [address] Sep, [facility] [address] [id number] [place] [address] 24 Sep, 2011 [facility] [address] [id number] [place] [address] 19 Sep, 2011 [facility] [address] [id number] [place] [address] 17 Sep, 2011 [facility] [address] [id number] [place] [address] 16 Sep, 2011 [facility] [address] [id number] [place] [address] 16 Sep, 2011 [facility] [address] [id number] [place] [address] 14 Sep, 2011 [facility] [address] [id number] [place] [address] 13 Sep, 2011 [facility] [address] [id number] [place] [address] 10 Sep, 2011 [facility] [address] [id number] [place] [address] 09 Sep, 2011 [facility] [address] [id number] [place] [address] 27 Aug, 2011 [facility] [address] [id number] [place] [address] 12 Aug, 2011 [facility] [address] [id number] [place] [address] 08 Aug, 2011 [facility] [address] [facility] [id number] [place] [address] Aug, [facility] [address] [id number] [place] [address] 28 Jul, 2011 [facility] [address] [id number] [place] [address] 22 Jul, 2011 [facility] [address] [id number] [place] [address] 16 Jul, 2011 [facility] [address] [id number] [place] [address] 15 Jul, 2011 [facility] [address] [id number] [place] [address] 14 Jul, 2011 [facility] [address] [id number] [place] [address] Jul, [facility] [address] [id number] [place] [address] Jun, [facility] [address] [id number] [place] [address] Jun, [facility] [address] [id number] [place] [address] Jun, [facility] [address] [id number] [place] [address] Jun, [facility] [address] [id number] [place] [address] Jun, [facility] [address] [id number] [place] [address] May, [facility] [address] [id number] [place] [address] May, [facility] [address] [id number] [place] [address] May, [facility] [address] [id number] [place] [address] May, [facility] [address] [id number] [place] [address] May, [facility] [address] [id number] [place] [address] May, [facility] [address] [id number] [place] [address] May, [facility] [address] [id number] [place] [address] Apr, [facility] [address] [id number] [place] [address] Apr, [facility] [address] [id number] [place] [address] Apr, [facility] [address] [id number] [place] [address] Apr, [facility] [address] [id number] [place] [address] Apr, [facility] [address] [id number] [place] [address] Apr, [facility] [address] [id number] [place] [address] Mar, [facility] [address] [id number] [place] [address] Mar, [facility] [address] [id number] [place] [address] Mar, [facility] [address] [id number] [place] [address] Mar, [facility] [address] [id number] [place] [address] Jan, [facility] [address] [id number] [place] [address] Dec, [facility] [address] [id number] [place] [address] Dec, [facility] [address] [id number] [place] [address] October, [facility] [address] [id number] [place] [address] Sep, [facility] [address] [id number] [place] [address] 14 Sep, 2010 [facility] [address] [id number] [place] [address] 17 Jul, 2010 [facility] [address] [id number] [place] [address] Jul, [facility] [address] [id number] [place] [address] May, [facility] [address] [id number] [place] [address] May, [facility] [address] [id number] [place] [address] May, [facility] [address] [id number] [place] [address] May, [facility] [address] [id number] [place] [address] Apr, [facility] [address] [id number] [place] [address] Apr, [facility] [address] [id number] [place] [address] Apr, [facility] [address] [id number] [place] [address] Apr, [facility] [address] [id number] [place] [address] Apr, [facility] [address] [id number] [place] [address] 21 Mar, 2010 [facility] [address] [id number] [place] [address] 14 Mar, 2010 [facility] [address] [id number] [place] [address] 13 Mar, 2010 [facility] [address] [id number] [place] [address] Mar, [facility] [address] [id number] [place] [address] Jan, [facility] [id number] [place] [address] Dec, [facility] [id number] [place] [address] Sep, [facility] [id number] [place] [address] 08 May, 2009 [facility] [id number] [place] [address] May, [facility] [id number] [place] [address] May, [facility] [id number] [place] [address] Apr, [facility] [id number] [place] [address] Apr, [facility] [id number] [place] [address] Apr, [facility] [id number] [place] [address] Apr, [facility] [id number] [place] [address] Apr, [facility] [id number] [place] [address] Mar, [facility] [id number] [place] [address] Mar, [facility] [id number] [place] [address] Jul, IMMUNIZATIONS No Known Immunizations SOCIAL HISTORY Never Assessed REASON FOR VISIT PLAN OF CARE VITAL SIGNS Height 62 in 2013-10-24 Weight 260 lbs 2013-10-24 Temperature 98.7 degrees Fahrenheit 2013-10-24 Heart Rate 84 bpm 2013-10-24 Respiratory Rate 24 2013-10-24 Blood pressure systolic 124 mmHg 2013-10-24 Blood pressure diastolic 86 mmHg 2013-10-24 MEDICATIONS Unknown Medications RESULTS No Results PROCEDURES [...] and replaced VC 10/2018 Hospitalization History Cellulitis-[facility] Hospitalization History [facility]- Abd pain 03/07/2017 [facility]- Abd pain 03/14/2017 [facility]- No bowel movement, rash 04/13/2017 [facility]- Abd pain r/ t kidney surgery on 04/10/17 04/17/2017 [facility]- Abd pain r/ t kidney surgery on 04/10/17 04/18/2017 Hospitalization History [facility]- Lower abd pain 04/17 Hospitalization History [facility]- Cannot urinate 05/17 Hospitalization History [facility]- Pancreatitis Sx Hospitalization History [facility]- Stomach pain 2017 Hospitalization History [facility]- Left side pain 07/19 Hospitalization History [facility]- Incision site infec tion 08/30/2017 Hospitalization History [facility]- Post Op Serom a/Hematoma Left Abdomen. Discharged 09/04/17- Dr Daniel 09/02/2017 Hospitalization History [facility]- Right shoulder and back pain 10/22/2017 Hospitalization History [facility]- Shoulder/Back pain 11/11/2017 Hospitalization History [facility]- Right shoulder blad e pain 12/04/2017 Hospitalization History [facility]- C-Diff 12/13/2017 Hospitalization History C diff et MRSA 12/27/2017 Hospitalization History [facility] Bowel Obstruction 10/2018 Hospitalization History [facility]- Abdominal pain and nausea 01/08/2019
--- OUTSIDE RECORDS SUMMARY | 2019-10-17 05:14 | XMS REPORT ---
Author Author Janeth Jensen Organization [facility] Address [address] [place] [address] Care Team Providers Care Polysomnographic Technician Name Role Phone RAQUEL Jensen Unavailable PROBLEMS Type Condition ICD9-CM Code JRN48-EQ Code Onset Dates Condition S tatus SNOMED Code Problem History of renal cell carcinoma Z85.528 Active 664063357 Problem Hepatic steatosis K76.0 Active 19 6681732 Problem Nodule of left lung R91.1 Active 896225242 Problem Right carpal tunnel syndrome G56.01 A ctive 821840233476456 Problem Mild obstructive sleep apnea G47.33 A ctive 28658325 Problem Moderate episode of recurrent major depressive disorder F33.1 Active 358716473 Problem Trichotillomania F63.3 Active 171 95106 Problem Morbid (severe) obesity due to excess calories E66 .01 Active 172072260 Problem Chronic tension-type headache, intractable G44.221 Active 329192686 Problem Asthma J45.909 Active 070355458 Problem Chronic pancreatitis K86.1 Active 832195807 Problem Atelectasis J98.11 Active 88091317 Problem Polydipsia R63.1 Active 58442910 Problem Chronic post-traumatic stress disorder (PTSD) F43. 12 Active 268308516 Problem Restless leg syndrome G25.81 Active 04164496 Problem Chronic fatigue R53.82 Active 8422 9001 Problem Intestinal malabsorption, unspecified K90.9 Active 46359493 Problem Primary osteoarthritis of right knee M17.11 Active 427987505863282 Problem Social phobia, generalized F40.11 Act yolanda 48088690 Problem FH: polycystic ovary Z84.2 Active 759967256 Problem Social phobia, unspecified F40.10 Act yolanda 08042345 Problem Hirsuties L68.0 Active 272802027 Problem Hyperlipidemia, mixed E78.2 Active 274000883 Problem Obesities, morbid E66.01 Active 23 3891163 Problem Menopausal symptoms N95.1 Active 37665546 Problem Conflict between patient and family Z63.9 Active 66002250 Problem Morbid obesity E66.01 Active 03059 6002 ALLERGIES No Information ENCOUNTERS Encounter Location Date Diagnosis [facility] [id number] [place] [address] Jul, [facility] [id number] [place] [address] May, [address] [place] [address] May, [facility] [address] [address] May, [facility] [address] [address] May, [facility] [address] [address] May, [facility] [address] [address] Apr, [facility] [id number] [place] [address] Apr, [facility] [address] [address] Apr, [facility] [id number] [place] [address] Mar, Cervical radiculopathy M54.12 [facility] [id number] [place] [address] Mar, [facility] [address] [address] Mar, [facility] [address] [address] Mar, [facility] [address] [address] Mar, [facility] [address] [place] [address] Mar, [facility] [id number] [place] [address] Mar, [facility] [id number] [place] [address] Mar, [facility] [id number] [place] [address] Feb, Chronic cough R05 [facility] [address] [address] Feb, [facility] [id number] [place] [address] Feb, [facility] [address] [address] Feb, Cervical radiculopathy M54.12 [facility] [address] [address] 17 Feb, 2019 Pain of left thumb M79.645 [facility] [id number] [place] [address] Feb, [facility] [address] [address] Feb, [facility] [id number] [place] [address] Feb, [facility] [address] [address] Feb, Cough present for greater than 3 weeks R 05 [facility] [id number] [place] [address] Feb, Cough present for greater than 3 weeks R 05 ; Feels sick R68.89 ; History of renal cell carcinoma Z85.528 and Morbid obesity E66.01 [facility] [id number] [place] [address] Jan, [facility] [address] [facility] [place] [id number] Jan, Oral health maintenance status requiring routine preventive dental care K08.9 ; Dental examination Z01.20 and Caries K02.9 [address] [place] [address] [address] Jan, Dysuria R30.0 [place] [address] [address] Jan, Dysuria R30.0 [place] [address] [address] Jan, Viral pharyngitis J02.9 and Morbid obesi ty E66.01 [place] [address] [address] Jan, [place] [address] [address] Jan, Left sided abdominal pain R10.9 ; Other acute postprocedural pain G89.18 ; History of renal cell carcinoma Z85.528 and Morbid obesity E66.01 [place] [address] [address] Dec, Dental examination Z01.20 [address] [place] [address] [address] Dec, Elevated LFTs R94.[address] [address] Dec, Encounter for Medicare annual wellness e xam Z00.00 ; Chronic tension- type headache, intractable G44.221 ; Morbid (severe) obesity due to excess calories E66.01 ; Hyperlipidemia, mixed E78.2 ; Chronic pancreatitis K86.1 ; Asthma J45.909 ; Moderate episode of recurrent major depressive disorder F33.1 ; Chronic fatigue R53.82 and Social phobia, unspecified F40.10 [place] [address] [address] Dec, [address] [address] Dec, [address] [place] [address] [address] Dec, [place] [address] [address] Dec, Hyperlipidemia, mixed E78.2 ; History of renal cell carcinoma Z85.528 and Restless leg syndrome G25.81 [place] [address] [address] Dec, Hyperlipidemia, mixed E78.2 ; Chronic pa ncreatitis K86.1 ; Restless leg syndrome G25.81 ; Nodule of left lung R91.1 ; History of renal cell carcinoma Z85.528 ; Leg swelling M79.89 ; Morbid obesity E66.01 and Observed sleep apnea G47.30 [place] [address] [address] Nov, [place] [address] [address] Nov, [place] [address] [address] Nov, [facility] [address] [facility] [id number] [address] [place] [address] Nov, Other acute postprocedural p ain G89.18 and Unspecified abdominal pain R10.9 [address] [place] [address] [address] October, [place] [address] [address] October, Social phobia, generalized F40.11 ; Conf lict between patient and family Z63.9 and Morbid obesity E66.01 [place] [address] [address] October, [facility] [address] [address] October, [place] [address] [address] October, [facility] [address] [facility] [place] [address] October, [address] [place] [address] October, [facility] [address] [facility] [place] [address] October, [address] [place] [address] October, [facility] [address] [facility] [place] [address] October, Morbid obesity E66.01 ; Routine gynecolo gical examination Z01.419 and Menopausal symptoms N95.1 [facility] [address] [facility] [place] [address] October, [facility] [address] [place] [address] Sep, [facility] [address] [facility] [place] [address] Sep, [facility] [address] [facility] [place] [address] Sep, [facility] [address] [facility] [place] [address] Sep, [facility] [address] [facility] [place] [address] Sep, Lower extremity edema R60.0 [facility] [address] [facility] [place] [address] Sep, [facility] [address] [facility] [id number] [address] [place] [address] Sep, Lower extremity edema R60.0 and Morbid obesity E66.01 [facility] [address] [facility] [place] [address] Sep, [facility] [address] [facility] [place] [address] Sep, [facility] [id number] [place] [address] Aug, [facility] [id number] [place] [address] Aug, Obesities, morbid E66.01 and Morbid obes ity E66.01 [facility] [id number] [place] [address] Aug, [facility] [address] [place] [address] Jul, [facility] [address] [address] Jul, [facility] [address] [address] Jul, [facility] [address] [address] Jul, Numbness of right hand R20.0 [facility] [address] [address] Jul, [facility] [address] [address] Jul, Numbness of right hand R20.0 [facility] [address] [address] Jul, [facility] [address] [address] Jul, [facility] [address] [address] Jul, Right-sided thoracic back pain M54.6 [facility] [id number] [place] [address] Jul, [facility] [address] [address] Jul, [facility] [address] [address] Jul, [facility] [address] [address] Jul, [facility] [address] [address] Jun, [facility] [address] [address] Jun, Acute pain of right shoulder M25.511 ; N umbness of right hand R20.0 and Trapezius muscle spasm M62.838 [address] [place] [address] [address] Jun, [place] [address] [address] Jun, [place] [address] [address] Jun, Cough R05 ; BMI 50.0-59.9, adult Z68.43 and Morbid obesity E66.01 [address] [place] [address] [address] Jun, [facility] [address] [address] Jun, [facility] [id number] [place] [address] Jun, BMI 45.0-49.9, adult Z68.42 and Acute non-recurrent maxillary sinusitis J01.00 [facility] [id number] [place] [address] 09 Jun, 2018 Acute sinusitis J01.90 ; Dys uria R30.0 and BMI 45.0- 49.9, adult Z68.42 [facility] [address] [address] Jun, [facility] [address] [address] Jun, [facility] [address] [address] May, [facility] [address] [address] May, [facility] [address] [address] May, [facility] [address] [address] May, [facility] [address] [address] May, [facility] [address] [address] Apr, Generalized social phobia F40.11 ; Trich otillomania F63.3 ; Chronic post-traumatic stress disorder (PTSD) F43.12 and BMI 45.0-49.9, adult Z68.42 [address] [place] [address] [address] Apr, [address] [place] [address] [address] Apr, Chronic tension-type headache, intractab le G44.221 [address] [address] Apr, [facility] [id number] [place] [address] Mar, [facility] [address] [place] [address] Mar, BMI 45.0-49.9, adult Z68.42 and Pimples R23.8 [address] [address] Mar, [address] [place] [address] Mar, [facility] [address] [address] Mar, Decreased urination R34 ; Chronic fatigu e R53.82 ; Peripheral edema R60.9 ; Diarrhea, unspecified type R19.7 ; Non-intractable vomiting with nausea, unspecified vomiting type R11.2 ; BMI 45.0-49.9, adult Z68.42 and Chronic post- traumatic stress disorder (PTSD) F43.12 [facility] [address] [address] Mar, Intestinal malabsorption, unspecified K9 0.9 ; Diarrhea, unspecified R19.7 ; Urinary urgency R39.15 ; Rectal bleeding K62.5 and Decreased urine output R34 [address] [place] [address] [address] Mar, Decreased urine output R34 [address] [place] [address] Mar, Rectal bleeding K62.5 [address] [place] [address] Mar, Rectal bleeding K62.5 [address] [place] [address] Mar, Urinary urgency R39.15 [address] [place] [address] [address] Mar, Urinary urgency R39.15 [address] [address] Mar, Primary osteoarthritis of right knee M17 .11 and BMI 45.0-49.9, adult Z68.42 [address] [address] Mar, [address] [place] [address] [address] Feb, Left upper arm pain M79.622 [facility] [address] [address] Feb, [facility] [address] [address] Jan, Acute pain of right knee M25.561 ; Right upper quadrant abdominal pain R10.11 and BMI 45.0-49.9, adult Z68.42 [address] [place] [address] Jan, [facility] [address] [address] Jan, [facility] [address] [address] Dec, [address] [place] [address] Dec, Intestinal malabsorption, unspecified K9 0.9 and Diarrhea, unspecified R19.7 [address] [address] Dec, [address] [address] Dec, Strep throat J02.0 ; Intestinal malabsor ption, unspecified K90.9 ; Diarrhea, unspecified R19.7 ; Postoperative seroma involving digestive system after non-digestive system procedure K91.873 ; Hyperlipidemia, mixed E78.2 and BMI 45.0-49.9, adult Z68.42 [address] [place] [address] Dec, [address] [place] [address] Dec, Nausea R11.0 [facility] [id number] [place] [address] Dec, [facility] [address] [facility] [id number] [address] [place] [address] Dec, Sore throat J02.9 ; Strep th roat J02.0 and BMI 45.0- 49.9, adult Z68.42 [facility] [address] [address] Dec, [facility] [id number] [place] [address] Dec, [facility] [id number] [place] [address] Dec, [facility] [id number] [place] [address] Dec, [facility] [id number] [place] [address] Dec, [facility] [id number] [place] [address] Dec, [facility] [id number] [place] [address] Dec, [facility] [id number] [place] [address] Dec, [facility] [id number] [place] [address] Dec, Clostridium difficile colitis A04.72 ; I ntractable vomiting with nausea, unspecified vomiting type R11.2 and BMI 45.0-49.9, adult Z68.42 [facility] [id number] [place] [address] Dec, [facility] [id number] [place] [address] Nov, [facility] [id number] [place] [address] Nov, [facility] [id number] [place] [address] Nov, [facility] [id number] [place] [address] Nov, [facility] [address] [facility] [id number] [address] [place] [address] Nov, [facility] [id number] [place] [address] Nov, Hyperlipidemia, mixed E78.2 [facility] [address] [facility] [id number] [address] [place] [address] Nov, Acute suppurative otitis med ia of right ear without spontaneous rupture of tympanic membrane, recurrence not specified H66.001 and BMI 45.0-49.9, adult Z68.42 [place] [address] [address] Nov, Hyperlipidemia, mixed E78.2 [place] [address] [address] Nov, [place] [address] [address] Nov, [place] [address] [address] Nov, Nodule of left lung R91.1 [place] [address] [address] Nov, Medicare annual wellness visit, initial Z00.00 [...] and Encounter for immunization Z23 [place] [address] [address] October, [place] [address] [address] October, Nodule of left lung R91.1 [place] [address] [address] October, Nodule of left lung R91.1 [place] [address] [address] October, Recurrent major depressive disorder, in partial remission F33.41 ; Restless leg syndrome G25.81 ; Generalized social phobia F40.11 ; Chronic post- traumatic stress disorder (PTSD) F43.12 ; BMI 45.0-49.9, adult Z68.42 and Trichotillomania F63.3 [place] [address] [address] October, [place] [address] [address] Sep, Chronic fatigue R53.82 and BMI 45.0-49.9 , adult Z68.42 [place] [address] [address] Aug, [place] [address] [address] Jul, Restless leg syndrome G25.81 and B12 def iciency E53.8 [place] [address] [address] Jul, [place] [address] [address] Jul, [place] [address] [address] Jun, [place] [address] [address] Jun, Fatigue, unspecified type R53.83 ; Histo ry of renal cell carcinoma Z85.528 ; Chronic pancreatitis K86.1 ; Restless leg syndrome G25.81 ; Dark urine R82.99 and BMI 45.0-49.9, adult Z68.42 [place] [address] [address] Jun, [place] [address] [address] Jun, [place] [address] [address] Jun, [place] [address] [address] Jun, [place] [address] [address] May, Chronic post-traumatic stress disorder ( PTSD) F43.12 ; Moderate episode of recurrent major depressive disorder F33.1 ; Trichotillomania F63.3 and Generalized social phobia F40.11 [place] [address] [address] May, [place] [address] [address] May, Chronic post-traumatic stress disorder ( PTSD) F43.12 ; Moderate episode of recurrent major depressive disorder F33.1 ; Trichotillomania F63.3 and Generalized social phobia F40.11 [place] [address] [address] May, Hyperlipidemia, mixed E78.2 ; Morbid (se nehemias) obesity due to excess calories E66.01 ; Chronic post-traumatic stress disorder (PTSD) F43.12 ; Moderate episode of recurrent major depressive disorder F33.1 ; Trichotillomania F63.3 and Generalized social phobia F40.11 [place] [address] [address] Apr, [place] [address] [address] Apr, Hyperlipidemia, mixed E78.2 ; Morbid (se nehemias) obesity due to excess calories E66.01 ; Chronic post-traumatic stress disorder (PTSD) F43.12 ; Moderate episode of recurrent major depressive disorder F33.1 ; Trichotillomania F63.3 and Generalized social phobia F40.11 [place] [address] [address] Apr, Trichotillomania F63.3 ; Generalized soc ial phobia F40.11 ; Chronic post-traumatic stress disorder (PTSD) F43.12 and Moderate episode of recurrent major depressive disorder F33.1 [facility] [address] [address] Apr, [facility] [address] [address] Apr, [facility] [address] [address] Mar, Moderate episode of recurrent major depr essive disorder F33.1 ; Trichotillomania F63.3 ; Chronic post-traumatic stress disorder (PTSD) F43.12 ; Generalized social phobia F40.11 and Restless leg syndrome G25.81 [place] [address] [address] Mar, [facility] [address] [address] Mar, [place] [address] [address] Feb, Left kidney mass N28.89 [facility] [address] [address] Jan, [facility] [address] [address] Dec, Polydipsia R63.1 ; Chronic pancreatitis K86.1 and Fatigue, unspecified type R53.[address] [address] Nov, [facility] [address] [address] Nov, [facility] [address] [address] Nov, Headache around the eyes R51 [facility] [address] [address] Nov, [facility] [address] [address] October, STD exposure Z20.2 [place] [address] [address] October, STD exposure Z20.2 [place] [address] [address] October, Chronic post-traumatic stress disorder ( PTSD) F43.12 ; Generalized social phobia F40.11 ; Trichotillomania F63.3 and Restless leg syndrome G25.81 [place] [address] [address] October, [place] [address] [address] Sep, [place] [address] [address] Aug, [place] [address] [address] Aug, [address] [address] Aug, Neck mass R22.[address] [address] Aug, Atelectasis J98.11 [place] [address] [address] 28 Jul, 2016 Hyperlipidemia, mixed E78.2 ; Atypical p neumonia J18.9 and Neck mass R22.1 [place] [address] [address] 15 Jul, 2016 Hemoptysis R04.2 [place] [address] [address] 08 Jul, 2016 Acute non-recurrent pansinusitis J01.40 ; Hemoptysis R04.2 ; Polydipsia R63.1 and Malaise R53.81 [facility] [address] [facility] [id number] [address] [place] [address] May, Other viral agents as the ca use of diseases classified elsewhere B97.89 and Acute upper respiratory infection, unspecified J06.9 [facility] [place] [address] [id number] [place] [address] Mar, Nausea R11.0 [facility] [place] [id number] [place] [address] 28 Dec, 2015 Hives L50.9 [place] [address] [address] 14 Dec, 2015 [facility] [place] [address] [id number] [place] [address] 10 Dec, 2015 Cutaneous abscess of limb, u nspecified L02.419 ; Cellulitis of unspecified part of limb L03.119 ; Encounter for incision and drainage procedure Z01.89 and Encounter for recheck of abscess following i ncision and drainage Z09 [facility] [place] [address] [address] [place] [id number] [place] [id number] 09 Dec, 2015 Abscess of leg, right L02.41 [address] [place] [address] [phone] 08 Dec, 2015 Cellulitis of unspecified part of limb L 03.119 and Cutaneous abscess of limb, unspecified L02.419 [place] [address] [id number] Dec, [place] [address] [phone] Dec, [facility] [place] [address] [id number] [place] [phone] Aug, [place] [address] [address] [address] [address] Aug, [facility] [place] [address] [place] [id number] [place] [address] 04 Jul, 2015 Pain in unspecified wrist M2 5.539 and Back pain, thoracic M54.6 [facility] [place] [address] [place] [id number] [address] 13 Jun, 2015 Strain of right wrist, initi al encounter S66.911A [place] [address] [address] Jun, Chronic pancreatitis, unspecified pancre atitis type K86.1 ; Hirsuties L68.0 ; Morbid (severe) obesity due to excess calories E66.01 ; Chronic pancreatitis K86.1 and Asthma J45.909 [place] [address] [address] May, [place] [address] [address] May, Hyperlipidemia, mixed E78.2 and Muscle s pasm of back M62.[address] [address] Apr, [place] [address] [address] Apr, Torticollis M43.6 [place] [address] [address] Apr, Right-sided thoracic back pain M54.[address] [address] Mar, Rash R21 [place] [address] [address] Mar, [place] [address] [address] Jan, [place] [address] [address] Dec, [address] [address] Dec, Urinary frequency 788.41 and Nocturia mo re than twice per night 788.43 [place] [address] [address] Nov, [facility] [address] [id number] [place] [address] Nov, [facility] [id number] [place] [address] Nov, Abdominal pain 789.00 [facility] [address] [id number] [place] [address] October, TDAP DX V06.1 [facility] [address] [address] [id number] [place] [address] October, [facility] [address] [id number] [place] [address] October, Disturbance of skin sensation 782.0 ; Wr ist pain, right 719.43 ; Hyperlipidemia 272.4 and Skin lesion of face 709.9 [facility] [id number] [place] [address] Sep, [facility] [id number] [place] [address] Sep, [facility] [id number] [place] [address] Aug, [facility] [id number] [place] [address] Aug, [facility] [id number] [place] [address] Aug, [facility] [id number] [place] [address] Aug, [facility] [address] [id number] [place] [address] Aug, [facility] [id number] [place] [address] Aug, [facility] [id number] [place] [address] 14 Aug, 2014 [facility] [id number] [place] [address] 14 Aug, 2014 [facility] [address] [id number] [place] [address] Aug, [facility] [address] [id number] [place] [address] Aug, [facility] [address] [id number] [place] [address] Aug, [facility] [address] [id number] [place] [address] Aug, [facility] [address] [id number] [place] [address] Aug, [facility] [address] [id number] [place] [address] Aug, [facility] [address] [id number] [place] [address] Jul, [facility] [address] [id number] [place] [address] Jul, [facility] [address] [id number] [place] [address] Jul, [facility] [address] [id number] [place] [address] Jul, [facility] [address] [id number] [place] [address] Jul, [facility] [address] [id number] [place] [address] Jul, [facility] [address] [id number] [place] [address] Jun, [facility] [address] [id number] [place] [address] Jun, [facility] [address] [id number] [place] [address] Jun, [facility] [address] [id number] [place] [address] Jun, [facility] [address] [id number] [place] [address] Jun, [facility] [address] [id number] [place] [address] Jun, [facility] [address] [id number] [place] [address] Jun, [facility] [address] [id number] [place] [address] 15 Jun, 2014 [facility] [address] [id number] [place] [address] May, [facility] [address] [id number] [place] [address] May, [facility] [address] [id number] [place] [address] May, [facility] [address] [id number] [place] [address] May, [facility] [address] [id number] [place] [address] May, [facility] [address] [id number] [place] [address] May, [facility] [address] [id number] [place] [address] May, [facility] [address] [id number] [place] [address] May, [facility] [address] [id number] [place] [address] May, [facility] [address] [id number] [place] [address] May, [facility] [address] [id number] [place] [address] May, [facility] [address] [id number] [place] [address] May, [facility] [address] [id number] [place] [address] Apr, [facility] [address] [id number] [place] [address] Apr, [facility] [address] [id number] [place] [address] Apr, [facility] [address] [id number] [place] [address] Apr, [facility] [address] [id number] [place] [address] Apr, [facility] [address] [id number] [place] [address] Apr, [facility] [address] [id number] [place] [address] Apr, [facility] [address] [id number] [place] [address] Apr, [facility] [address] [id number] [place] [address] Apr, [facility] [address] [id number] [place] [address] Apr, [facility] [address] [id number] [place] [address] Apr, [facility] [address] [id number] [place] [address] Apr, [facility] [address] [id number] [place] [address] Mar, [facility] [address] [id number] [place] [address] Mar, [facility] [address] [id number] [place] [address] Mar, [facility] [address] [id number] [place] [address] Mar, [facility] [address] [id number] [place] [address] Feb, [facility] [address] [id number] [place] [address] Feb, [facility] [address] [place] [id number] [place] [address] Feb, 2013 [facility] [address] [facility] [id number] [place] [address] Feb, 2013 [facility] [address] [facility] [id number] [place] [address] Feb, 2013 [facility] [address] [id number] [place] [address] Feb, 2013 [facility] [address] [facility] [id number] [place] [address] Jan, 2013 [facility] [address] [id number] [place] [address] Jan, [facility] [address] [id number] [place] [address] Jan, [facility] [address] [id number] [place] [address] Jan, [facility] [address] [id number] [place] [address] Jan, [facility] [address] [id number] [place] [address] Jan, [facility] [address] [id number] [place] [address] Jan, [facility] [address] [id number] [place] [address] Jan, [facility] [address] [id number] [place] [address] Jan, [facility] [address] [facility] [id number] [place] [address] Jan, [facility] [address] [id number] [place] [address] Jan, [facility] [address] [id number] [place] [address] Jan, [facility] [address] [id number] [place] [address] Jan, [facility] [address] [facility] [id number] [place] [address] Jan, [facility] [address] [facility] [id number] [place] [address] Dec, [facility] [address] [id number] [place] [address] Dec, [facility] [address] [facility] [id number] [place] [address] Dec, [facility] [address] [facility] [id number] [place] [address] Dec, [facility] [address] [id number] [place] [address] Nov, [facility] [address] [id number] [place] [address] Nov, [facility] [address] [id number] [place] [address] Nov, [facility] [address] [id number] [place] [address] Nov, [facility] [address] [id number] [place] [address] Nov, [facility] [address] [id number] [place] [address] October, [facility] [address] [id number] [place] [address] October, [facility] [address] [facility] [id number] [place] [address] October, [facility] [address] [id number] [place] [address] October, [facility] [address] [id number] [place] [address] October, [facility] [address] [id number] [place] [address] October, [facility] [address] [id number] [place] [address] October, [facility] [address] [id number] [place] [address] October, [facility] [address] [id number] [place] [address] October, [facility] [address] [id number] [place] [address] October, [facility] [address] [id number] [place] [address] October, [facility] [address] [id number] [place] [address] October, [facility] [address] [id number] [place] [address] October, [facility] [address] [id number] [place] [address] October, [facility] [address] [id number] [place] [address] Sep, [facility] [address] [id number] [place] [address] Sep, [facility] [address] [id number] [place] [address] Sep, [facility] [address] [id number] [place] [address] Sep, [facility] [address] [id number] [place] [address] Sep, [facility] [address] [id number] [place] [address] Sep, [facility] [address] [id number] [place] [address] Sep, [facility] [address] [id number] [place] [address] Sep, [facility] [address] [id number] [place] [address] Sep, [facility] [address] [id number] [place] [address] Sep, [facility] [address] [id number] [place] [address] Sep, [facility] [address] [id number] [place] [address] Sep, [facility] [address] [id number] [place] [address] Sep, [facility] [address] [id number] [place] [address] Sep, [facility] [address] [id number] [place] [address] Sep, [facility] [address] [id number] [place] [address] Aug, [facility] [address] [id number] [place] [address] Aug, [facility] [address] [id number] [place] [address] Aug, [facility] [address] [id number] [place] [address] Aug, [facility] [address] [id number] [place] [address] Jul, [facility] [address] [id number] [place] [address] Jul, [facility] [address] [id number] [place] [address] Jul, [facility] [address] [id number] [place] [address] Jul, [facility] [address] [id number] [place] [address] Jun, [facility] [address] [id number] [place] [address] Jun, [facility] [address] [id number] [place] [address] 15 Jun, 2013 [facility] [address] [facility] [id number] [place] [address] 15 Jun, 2013 [facility] [address] [facility] [id number] [place] [address] 10 Jun, 2013 [facility] [address] [id number] [place] [address] 10 Jun, 2013 [facility] [address] [id number] [place] [address] 08 Jun, 2013 [facility] [address] [id number] [place] [address] 08 Jun, 2013 [facility] [address] [id number] [place] [address] 20 May, 2013 [facility] [address] [id number] [place] [address] 20 May, 2013 [facility] [address] [id number] [place] [address] 18 May, 2013 [facility] [address] [id number] [place] [address] 18 May, 2013 [facility] [address] [id number] [place] [address] 17 May, 2013 [facility] [address] [facility] [id number] [place] [id number] 17 May, 2013 [facility] [address] [id number] [place] [address] 17 May, 2013 [facility] [address] [id number] [place] [address] 17 May, 2013 [facility] [address] [id number] [place] [address] 16 May, 2013 [facility] [address] [id number] [place] [address] 16 May, 2013 [facility] [address] [id number] [place] [address] 14 May, 2013 [facility] [address] [id number] [place] [address] 14 May, 2013 [facility] [address] [id number] [place] [address] 13 May, 2013 [facility] [address] [id number] [place] [address] May, [facility] [address] [id number] [place] [address] 12 May, 2013 [facility] [address] [id number] [place] [address] 12 May, 2013 [facility] [address] [id number] [place] [address] May, [facility] [address] [id number] [place] [address] May, [facility] [address] [id number] [place] [address] Apr, [facility] [address] [id number] [place] [address] Apr, [facility] [address] [id number] [place] [address] Apr, [facility] [address] [id number] [place] [address] Apr, [facility] [address] [id number] [place] [address] Aug, [facility] [address] [id number] [place] [address] Aug, [facility] [address] [id number] [place] [address] 06 Aug, 2012 [facility] [address] [id number] [place] [address] 05 Aug, 2012 [facility] [address] [id number] [place] [address] Jul, [facility] [address] [id number] [place] [address] Jun[facility] [address] [id number] [place] [address] Jun, [facility] [address] [id number] [place] [address] Jun, [facility] [address] [id number] [place] [address] Jun, [facility] [address] [id number] [place] [address] May, [facility] [address] [id number] [place] [address] May, [facility] [address] [id number] [place] [address] May, [facility] [address] [id number] [place] [address] May, [facility] [id number] [place] [address] May, [facility] [address] [id number] [place] [address] May, [facility] [address] [id number] [place] [address] May, [facility] [address] [id number] [place] [address] Apr, [facility] [address] [id number] [place] [address] Apr, [facility] [address] [id number] [place] [address] Apr, [facility] [address] [id number] [place] [address] Apr, [facility] [address] [id number] [place] [address] Apr, [facility] [address] [id number] [place] [address] Apr, [facility] [address] [id number] [place] [address] Apr, [facility] [address] [facility] [id number] [place] [address] Mar, [facility] [address] [facility] [id number] [place] [address] Mar, [facility] [address] [id number] [place] [address] Mar, [facility] [address] [id number] [place] [address] Mar, [facility] [address] [facility] [id number] [place] [address] Mar, [facility] [address] [id number] [place] [address] Mar, [facility] [address] [id number] [place] [address] Mar, [facility] [address] [id number] [place] [address] Mar, [facility] [address] [id number] [place] [address] Mar, [facility] [address] [id number] [place] [address] Mar, [facility] [address] [id number] [place] [address] Mar, [facility] [address] [id number] [place] [address] Mar, [facility] [address] [facility] [id number] [place] [address] 06 Feb, 2012 [facility] [address] [id number] [place] [address] Jan, [facility] [address] [id number] [place] [address] Jan, [facility] [address] [id number] [place] [address] Jan, [facility] [address] [facility] [id number] [place] [address] Jan, [facility] [address] [id number] [place] [address] Jan, [facility] [address] [id number] [place] [address] Dec, [facility] [address] [id number] [place] [address] Dec, [facility] [address] [id number] [place] [address] Nov, [facility] [address] [id number] [place] [address] Nov, [facility] [address] [id number] [place] [address] Nov, [facility] [address] [id number] [place] [address] October, [facility] [address] [id number] [place] [address] October, [facility] [address] [id number] [place] [address] October, [facility] [address] [id number] [place] [address] October, [facility] [address] [id number] [place] [address] October, [facility] [address] [id number] [place] [address] October, [facility] [address] [id number] [place] [address] October, [facility] [address] [id number] [place] [address] Sep, [facility] [address] [id number] [place] [address] Sep, [facility] [address] [id number] [place] [address] Sep, [facility] [address] [id number] [place] [address] 25 Sep, 2011 [facility] [address] [id number] [place] [address] 24 Sep, 2011 [facility] [address] [id number] [place] [address] 19 Sep, 2011 [facility] [address] [id number] [place] [address] 17 Sep, 2011 [facility] [address] [id number] [place] [address] 16 Sep, 2011 [facility] [address] [id number] [place] [address] 16 Sep, 2011 [facility] [address] [id number] [place] [address] 14 Sep, 2011 [facility] [address] [id number] [place] [address] 13 Sep, 2011 [facility] [address] [id number] [place] [address] 10 Sep, 2011 [facility] [address] [id number] [place] [address] 09 Sep, 2011 [facility] [address] [id number] [place] [address] 27 Aug, 2011 [facility] [address] [id number] [place] [address] Aug, [facility] [address] [id number] [place] [address] 08 Aug, 2011 [facility] [address] [id number] [place] [address] 06 Aug, 2011 [facility] [address] [id number] [place] [address] 28 Jul, 2011 [facility] [address] [id number] [place] [address] Jul, [facility] [address] [id number] [place] [address] 16 Jul, 2011 [facility] [address] [id number] [place] [address] 15 Jul, 2011 [facility] [address] [id number] [place] [address] 14 Jul, 2011 [facility] [address] [id number] [place] [address] 10 Jul, 2011 [facility] [address] [id number] [place] [address] Jun, [facility] [address] [id number] [place] [address] Jun, [facility] [address] [id number] [place] [address] Jun, [facility] [id number] [place] [address] Jun, [facility] [id number] [place] [address] Jun, [facility] [address] [id number] [place] [address] May, [facility] [address] [id number] [place] [address] May, [facility] [address] [id number] [place] [address] May, [facility] [address] [id number] [place] [address] 14 May, 2011 [facility] [address] [id number] [place] [address] 12 May, 2011 [facility] [id number] [place] [address] 07 May, 2011 [facility] [address] [id number] [place] [address] 05 May, 2011 [facility] [id number] [place] [address] Apr, [facility] [address] [id number] [place] [address] Apr, [facility] [address] [id number] [place] [address] Apr, [facility] [address] [id number] [place] [address] Apr, [facility] [address] [id number] [place] [address] Apr, [facility] [address] [id number] [place] [address] Apr, [facility] [address] [id number] [place] [address] Mar, [facility] [address] [id number] [place] [address] Mar, [facility] [address] [id number] [place] [address] Mar, [facility] [address] [id number] [place] [address] Mar, [facility] [address] [id number] [place] [address] Jan, [facility] [address] [id number] [place] [address] Dec, [facility] [address] [id number] [place] [address] Dec, [facility] [address] [id number] [place] [address] October, [facility] [address] [id number] [place] [address] Sep, [facility] [address] [id number] [place] [address] 14 Sep, 2010 [facility] [address] [id number] [place] [address] Jul, [facility] [address] [id number] [place] [address] 16 Jul, 2010 [facility] [address] [id number] [place] [address] May, [facility] [address] [id number] [place] [address] May, [facility] [address] [id number] [place] [address] May, [facility] [address] [id number] [place] [address] May, [facility] [address] [id number] [place] [address] Apr, [facility] [address] [id number] [place] [address] Apr, [facility] [address] [id number] [place] [address] Apr, [facility] [address] [id number] [place] [address] Apr, [facility] [address] [id number] [place] [address] Apr, [facility] [address] [id number] [place] [address] Mar, [facility] [address] [id number] [place] [address] 14 Mar, 2010 [facility] [address] [id number] [place] [address] 13 Mar, 2010 [facility] [address] [id number] [place] [address] Mar, [facility] [address] [id number] [place] [address] Jan, [facility] [address] [id number] [place] [address] 15 Dec, 2009 [facility] [address] [id number] [place] [address] 10 Sep, 2009 [facility] [id number] [place] [address] May, [facility] [id number] [place] [address] May, [facility] [address] [address] May, [facility] [address] [address] Apr, [facility] [address] [address] Apr, [facility] [address] [address] Apr, [facility] [address] [address] Apr, [facility] [address] [address] Apr, [facility] [address] [address] Mar, [facility] [address] [address] Mar, [facility] [address] [address] Jul, IMMUNIZATIONS No Known Immunizations SOCIAL HISTORY [...] Hospitalization History Cellulitis-[facility] Hospitalization History [facility] [place]- Abd pain 03/07/2017 Hospitalization History [facility] [place]- Abd pain 03/14/2017 Hospitalization History [facility] [place]- No bowel movement, rash 04/13/2017 Hospitalization History [facility] [place]- Abd pain r/ t kidney surgery on 04/10/17 04/17/2017 Hospitalization History [facility] [place]- Abd pain r/ t kidney surgery on 04/10/17 04/18/2017 Hospitalization History [facility] [place]- Lower abd pain 04/17 Hospitalization History [facility] [place]- Cannot urinate 05/17 Hospitalization History [facility] [place]- Pancreatitis Sx Hospitalization History [facility] [place]- Stomach pain 2017 Hospitalization History [facility] [place]- Left side pain 07/19 Hospitalization History [facility] [place]- Incision site infec tion 08/30/2017 Hospitalization History [facility]- Post Op Serom a/Hematoma Left Abdomen. Discharged 09/04/17- Dr Daniel 09/02/2017 Hospitalization History [facility] [place]- Right shoulder and back pain 10/22/2017 Hospitalization History [facility] [place]- Shoulder/Back pain 11/11/2017 Hospitalization History [facility] [place]- Right shoulder blad e pain 12/04/2017 Hospitalization History [facility] [place]- C-Diff 12/13/2017 Hospitalization History C diff et MRSA 12/27/2017 Hospitalization History [facility] Bowel Obstruction 10/2018 Hospitalization History [facility] [place]- Abdominal pain and nausea 01/08/2019
--- OUTSIDE RECORDS SUMMARY | 2019-10-17 05:14 | XMS REPORT ---
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 Name Role Phone SAI CARMEN Unavailable PROBLEMS Type Condition ICD9-CM Code NZM54-UF Code Onset Dates Condition S tatus SNOMED Code Problem History of renal cell carcinoma Z85.528 Active 650123440 Problem Hepatic steatosis K76.0 Active 19 7035582 Problem Nodule of left lung R91.1 Active 397734582 Problem Right carpal tunnel syndrome G56.01 A ctive 996840004326075 Problem Mild obstructive sleep apnea G47.33 A ctive 52997646 Problem Moderate episode of recurrent major depressive disorder F33.1 Active 370104818 Problem Trichotillomania F63.3 Active 171 22436 Problem Morbid (severe) obesity due to excess calories E66 .01 Active 295659721 Problem Chronic tension-type headache, intractable G44.221 Active 466015846 Problem Asthma J45.909 Active 002414729 Problem Chronic pancreatitis K86.1 Active 230153276 Problem Atelectasis J98.11 Active 71281836 Problem Polydipsia R63.1 Active 89548958 Problem Chronic post-traumatic stress disorder (PTSD) F43. 12 Active 093428356 Problem Restless leg syndrome G25.81 Active 43120347 Problem Chronic fatigue R53.82 Active 8422 9001 Problem Intestinal malabsorption, unspecified K90.9 Active 48438408 Problem Primary osteoarthritis of right knee M17.11 Active 407313122522126 Problem Social phobia, generalized F40.11 Act yolanda 63790588 Problem FH: polycystic ovary Z84.2 Active 638978704 Problem Social phobia, unspecified F40.10 Act yolanda 98641300 Problem Hirsuties L68.0 Active 016297492 Problem Hyperlipidemia, mixed E78.2 Active 245200788 Problem Obesities, morbid E66.01 Active 23 9680009 Problem Menopausal symptoms N95.1 Active 31438511 Problem Conflict between patient and family Z63.9 Active 90849182 Problem Morbid obesity E66.01 Active 73592 6002 ALLERGIES No Information ENCOUNTERS Encounter Location Date Diagnosis [facility] [id number] [place] [address] Jul, [facility] [id number] [place] [address] May, [address] [place] [address] May, [facility] [id number] [place] [address] May, [facility] [address] [address] May, [facility] [id number] [place] [address] May, [facility] [address] [address] Apr, [facility] [id number] [place] [address] Apr, [facility] [address] [address] Apr, [facility] [id number] [place] [address] Mar, Cervical radiculopathy M54.12 [facility] [id number] [place] [address] Mar, [facility] [id number] [place] [address] Mar, [facility] [address] [address] Mar, [facility] [id number] [place] [address] Mar, [facility] [address] [address] Mar, [facility] [id number] [place] [address] Mar, [facility] [address] [address] Mar, [facility] [id number] [place] [address] Feb, Chronic cough R05 [facility] [address] [address] Feb, [facility] [address] [address] Feb, [facility] [address] [address] Feb, Cervical radiculopathy M54.12 [address] [address] [address] 17 Feb, 2019 Pain of left thumb M79.645 [facility] [id number] [place] [address] Feb, [facility] [address] [address] Feb, [facility] [id number] [place] [address] Feb, [facility] [address] [address] Feb, Cough present for greater than 3 weeks R 05 [facility] [id number] [place] [address] Feb, Cough present for greater than 3 weeks R 05 ; Feels sick R68.89 ; History of renal cell carcinoma Z85.528 and Morbid obesity E66.01 [facility] [id number] [place] [address] Jan, [facility] [address] [facility] [place] [id number] Jan, Oral health maintenance status requiring routine preventive dental care K08.9 ; Dental examination Z01.20 and Caries K02.9 [address] [address] [address] Jan, Dysuria R30.0 [place] [address] [address] Jan, Dysuria R30.0 [address] [address] [address] Jan, Viral pharyngitis J02.9 and Morbid obesi ty E66.01 [address] [address] [address] Jan, [address] [address] [address] Jan, Left sided abdominal pain R10.9 ; Other acute postprocedural pain G89.18 ; History of renal cell carcinoma Z85.528 and Morbid obesity E66.01 [address] [address] [address] Dec, Dental examination Z01.20 [address] [address] [address] Dec, Elevated LFTs R94.[address] [address] Dec, Encounter for Medicare annual wellness e xam Z00.00 ; Chronic tension- type headache, intractable G44.221 ; Morbid (severe) obesity due to excess calories E66.01 ; Hyperlipidemia, mixed E78.2 ; Chronic pancreatitis K86.1 ; Asthma J45.909 ; Moderate episode of recurrent major depressive disorder F33.1 ; Chronic fatigue R53.82 and Social phobia, unspecified F40.10 [address] [address] [address] Dec, [address] [address] [address] Dec, [address] [address] [address] Dec, [address] [address] [address] Dec, Hyperlipidemia, mixed E78.2 ; History of renal cell carcinoma Z85.528 and Restless leg syndrome G25.81 [address] [address] [address] Dec, Hyperlipidemia, mixed E78.2 ; Chronic pa ncreatitis K86.1 ; Restless leg syndrome G25.81 ; Nodule of left lung R91.1 ; History of renal cell carcinoma Z85.528 ; Leg swelling M79.89 ; Morbid obesity E66.01 and Observed sleep apnea G47.30 [address] [address] [address] Nov, [address] [address] [address] Nov, [address] [address] [address] Nov, [facility] [address] [facility] [id number] [address] [place] [address] Nov, Other acute postprocedural p ain G89.18 and Unspecified abdominal pain R10.9 [address] [address] [address] October, [address] [address] [address] October, Social phobia, generalized F40.11 ; Conf lict between patient and family Z63.9 and Morbid obesity E66.01 [address] [address] [address] October, [facility] [address] [address] October, [address] [address] [address] October, [facility] [address] [id number] [place] [address] October, [address] [place] [address] October, [facility] [address] [id number] [place] [address] October, [address] [place] [address] October, [facility] [address] [id number] [place] [address] October, Morbid obesity E66.01 ; Routine gynecolo gical examination Z01.419 and Menopausal symptoms N95.1 [facility] [address] [id number] [place] [address] October, [facility] [address] [place] [address] Sep, [facility] [address] [id number] [place] [address] Sep, [facility] [address] [id number] [place] [address] Sep, [facility] [address] [id number] [place] [address] Sep, [facility] [address] [id number] [place] [address] Sep, Lower extremity edema R60.0 [facility] [address] [id number] [place] [address] Sep, [facility] [address] [facility] [id number] [address] [place] [address] Sep, Lower extremity edema R60.0 and Morbid obesity E66.01 [facility] [address] [id number] [place] [address] Sep, [facility] [id number] [place] [address] Sep, [facility] [id number] [place] [address] Aug, [facility] [address] [address] Aug, Obesities, morbid E66.01 and Morbid obes ity E66.01 [facility] [id number] [place] [address] Aug, [address] [place] [address] Jul, [facility] [id number] [place] [address] Jul, [facility] [address] [address] Jul, [facility] [address] [address] Jul, Numbness of right hand R20.0 [facility] [address] [address] Jul, [facility] [address] [address] Jul, Numbness of right hand R20.0 [facility] [address] [address] Jul, [facility] [address] [address] Jul, [facility] [address] [address] Jul, Right-sided thoracic back pain M54.6 [facility] [address] [address] Jul, [facility] [address] [address] 05 Jul, 2018 [facility] [address] [address] Jul, [facility] [address] [address] Jul, [facility] [address] [address] Jun, [facility] [address] [address] Jun, Acute pain of right shoulder M25.511 ; N umbness of right hand R20.0 and Trapezius muscle spasm M62.838 [facility] [address] [address] Jun, [facility] [address] [address] Jun, [address] [place] [address] Jun, Cough R05 ; BMI 50.0-59.9, adult Z68.43 and Morbid obesity E66.01 [facility] [address] [address] Jun, [facility] [address] [address] Jun, [facility] [id number] [place] [address] Jun, BMI 45.0-49.9, adult Z68.42 and Acute non-recurrent maxillary sinusitis J01.00 [facility] [address] [facility] [id number] [address] [place] [address] 09 Jun, 2018 Acute sinusitis J01.90 ; Dys uria R30.0 and BMI 45.0- 49.9, adult Z68.42 [facility] [address] [address] Jun, [facility] [address] [address] Jun, [facility] [address] [address] May, [facility] [address] [address] May, [facility] [address] [address] May, [facility] [address] [address] May, [facility] [address] [address] May, [facility] [address] [address] Apr, Generalized social phobia F40.11 ; Trich otillomania F63.3 ; Chronic post-traumatic stress disorder (PTSD) F43.12 and BMI 45.0-49.9, adult Z68.42 [address] [place] [address] Apr, [address] [address] Apr, Chronic tension-type headache, intractab le G44.221 [address] [address] [address] Apr, [facility] [address] [place] [address] Mar, [facility] [id number] [place] [address] Mar, BMI 45.0-49.9, adult Z68.42 and Pimples R23.8 [address] [address] [address] Mar, [facility] [address] [address] Mar, [facility] [address] [address] Mar, Decreased urination R34 ; Chronic fatigu e R53.82 ; Peripheral edema R60.9 ; Diarrhea, unspecified type R19.7 ; Non-intractable vomiting with nausea, unspecified vomiting type R11.2 ; BMI 45.0-49.9, adult Z68.42 and Chronic post- traumatic stress disorder (PTSD) F43.12 [address] [address] [address] Mar, Intestinal malabsorption, unspecified K9 0.9 ; Diarrhea, unspecified R19.7 ; Urinary urgency R39.15 ; Rectal bleeding K62.5 and Decreased urine output R34 [address] [address] [address] Mar, Decreased urine output R34 [address] [address] Mar, Rectal bleeding K62.5 [address] [address] [address] Mar, Rectal bleeding K62.5 [address] [address] [address] Mar, Urinary urgency R39.15 [address] [address] [address] Mar, Urinary urgency R39.15 [address] [address] [address] Mar, Primary osteoarthritis of right knee M17 .11 and BMI 45.0-49.9, adult Z68.42 [address] [address] [address] Mar, [address] [address] [address] Feb, Left upper arm pain M79.622 [address] [address] [address] Feb, [address] [address] [address] Jan, Acute pain of right knee M25.561 ; Right upper quadrant abdominal pain R10.11 and BMI 45.0-49.9, adult Z68.42 [facility] [address] [address] Jan, [facility] [address] [address] Jan, [facility] [address] [address] Dec, [facility] [address] [address] Dec, Intestinal malabsorption, unspecified K9 0.9 and Diarrhea, unspecified R19.7 [facility] [address] [address] Dec, [address] [address] [address] Dec, Strep throat J02.0 ; Intestinal malabsor ption, unspecified K90.9 ; Diarrhea, unspecified R19.7 ; Postoperative seroma involving digestive system after non-digestive system procedure K91.873 ; Hyperlipidemia, mixed E78.2 and BMI 45.0-49.9, adult Z68.42 [facility] [address] [address] Dec, [facility] [address] [address] Dec, Nausea R11.0 [facility] [address] [address] Dec, [facility] [address] [facility] [id number] [address] [place] [address] Dec, Sore throat J02.9 ; Strep th roat J02.0 and BMI 45.0- 49.9, adult Z68.42 [facility] [address] [address] Dec, [address] [id number] [place] [address] Dec, [facility] [id number] [place] [address] Dec, [facility] [id number] [place] [address] Dec, [facility] [id number] [place] [address] Dec, [facility] [id number] [place] [address] Dec, [facility] [id number] [place] [address] Dec, [facility] [id number] [place] [address] Dec, [facility] [id number] [place] [address] Dec, Clostridium difficile colitis A04.72 ; I ntractable vomiting with nausea, unspecified vomiting type R11.2 and BMI 45.0-49.9, adult Z68.42 [facility] [id number] [place] [address] Dec, [facility] [id number] [place] [address] Nov, [facility] [address] [id number] [place] [address] Nov, [facility] [id number] [place] [address] Nov, [facility] [address] [id number] [place] [address] Nov[facility] [address] [facility] [id number] [address] [place] [address] Nov, [facility] [address] [id number] [place] [address] Nov, Hyperlipidemia, mixed E78.2 [facility] [address] [facility] [id number] [address] [place] [address] Nov, Acute suppurative otitis med ia of right ear without spontaneous rupture of tympanic membrane, recurrence not specified H66.001 and BMI 45.0-49.9, adult Z68.42 [address] [address] [address] Nov, Hyperlipidemia, mixed E78.2 [address] [address] [address] Nov, [address] [address] [address] Nov, [place] [address] [address] Nov, Nodule of left lung R91.[address] [address] Nov, Medicare annual wellness visit, initial Z00.00 [...] adult Z68.42 and Encounter for immunization Z23 [place] [address] [address] October, [place] [address] [address] October, Nodule of left lung R91.1 [place] [address] [address] October, Nodule of left lung R91.1 [place] [address] [address] October, Recurrent major depressive disorder, in partial remission F33.41 ; Restless leg syndrome G25.81 ; Generalized social phobia F40.11 ; Chronic post- traumatic stress disorder (PTSD) F43.12 ; BMI 45.0-49.9, adult Z68.42 and Trichotillomania F63.3 [place] [address] [address] October, [place] [address] [address] Sep, Chronic fatigue R53.82 and BMI 45.0-49.9 , adult Z68.42 [place] [address] [address] Aug, [place] [address] [address] Jul, Restless leg syndrome G25.81 and B12 def iciency E53.8 [place] [address] [address] Jul, [place] [address] [address] Jul, [place] [address] [address] Jun, [place] [address] [address] Jun, Fatigue, unspecified type R53.83 ; Histo ry of renal cell carcinoma Z85.528 ; Chronic pancreatitis K86.1 ; Restless leg syndrome G25.81 ; Dark urine R82.99 and BMI 45.0-49.9, adult Z68.42 [place] [address] [address] Jun, [place] [address] [address] Jun, [place] [address] [address] Jun, [place] [address] [address] Jun, [place] [address] [address] May, Chronic post-traumatic stress disorder ( PTSD) F43.12 ; Moderate episode of recurrent major depressive disorder F33.1 ; Trichotillomania F63.3 and Generalized social phobia F40.11 [place] [address] [address] May, [place] [address] [address] May, Chronic post-traumatic stress disorder ( PTSD) F43.12 ; Moderate episode of recurrent major depressive disorder F33.1 ; Trichotillomania F63.3 and Generalized social phobia F40.11 [place] [address] [address] May, Hyperlipidemia, mixed E78.2 ; Morbid (se nehemias) obesity due to excess calories E66.01 ; Chronic post-traumatic stress disorder (PTSD) F43.12 ; Moderate episode of recurrent major depressive disorder F33.1 ; Trichotillomania F63.3 and Generalized social phobia F40.11 [place] [address] [address] Apr, [place] [address] [address] Apr, Hyperlipidemia, mixed E78.2 ; Morbid (se nehemias) obesity due to excess calories E66.01 ; Chronic post-traumatic stress disorder (PTSD) F43.12 ; Moderate episode of recurrent major depressive disorder F33.1 ; Trichotillomania F63.3 and Generalized social phobia F40.11 [place] [address] [address] Apr, Trichotillomania F63.3 ; Generalized soc ial phobia F40.11 ; Chronic post-traumatic stress disorder (PTSD) F43.12 and Moderate episode of recurrent major depressive disorder F33.1 [facility] [address] [address] Apr, [facility] [address] [address] Apr, [facility] [address] [address] Mar, Moderate episode of recurrent major depr essive disorder F33.1 ; Trichotillomania F63.3 ; Chronic post-traumatic stress disorder (PTSD) F43.12 ; Generalized social phobia F40.11 and Restless leg syndrome G25.81 [place] [address] [address] Mar, [place] [address] [address] Mar, [place] [address] [address] Feb, Left kidney mass N28.89 [place] [address] [address] Jan, [place] [address] [address] Dec, Polydipsia R63.1 ; Chronic pancreatitis K86.1 and Fatigue, unspecified type R53.83 [place] [address] [address] Nov, [place] [address] [address] Nov, [place] [address] [address] Nov, Headache around the eyes R51 [place] [address] [address] Nov, [place] [address] [address] October, STD exposure Z20.2 [id number] [place] [address] October, STD exposure Z20.2 [place] [address] [address] October, Chronic post-traumatic stress disorder ( PTSD) F43.12 ; Generalized social phobia F40.11 ; Trichotillomania F63.3 and Restless leg syndrome G25.81 [place] [address] [address] October, [place] [address] [address] Sep, [place] [address] [address] Aug, [place] [address] [address] Aug, [place] [address] [address] Aug, Neck mass R22.[address] [address] Aug, Atelectasis J98.11 [place] [address] [address] 28 Jul, 2016 Hyperlipidemia, mixed E78.2 ; Atypical p neumonia J18.9 and Neck mass R22.1 [place] [address] [address] 15 Jul, 2016 Hemoptysis R04.2 [place] [address] [address] 08 Jul, 2016 Acute non-recurrent pansinusitis J01.40 ; Hemoptysis R04.2 ; Polydipsia R63.1 and Malaise R53.81 [facility] [address] [facility] [id number] [place] [address] May, Other viral agents as the ca use of diseases classified elsewhere B97.89 and Acute upper respiratory infection, unspecified J06.9 [facility] [place] [address] [place] [address] Mar, Nausea R11.0 [facility] [place] [address] [place] [address] 28 Dec, 2015 Hives L50.9 [place] [address] [address] 14 Dec, 2015 [facility] [place] [address] [address] [place] [id number] [place] [address] 10 Dec, 2015 Cutaneous abscess of limb, u nspecified L02.419 ; Cellulitis of unspecified part of limb L03.119 ; Encounter for incision and drainage procedure Z01.89 and Encounter for recheck of abscess following i ncision and drainage Z09 [facility] [place] [address] [place] [id number] [place] [address] 09 Dec, 2015 Abscess of leg, right L02.41 5 [place] [address] [address] 08 Dec, 2015 Cellulitis of unspecified part of limb L 03.119 and Cutaneous abscess of limb, unspecified L02.419 [place] [address] [address] 06 Dec, 2015 [place] [address] [address] Dec, [facility] [place] [address] [address] [place] [id number] [place] [address] Aug, [place] [address] [address] Aug, [facility] [place] [address] [place] [id number] [place] [address] 04 Jul, 2015 Pain in unspecified wrist M2 5.539 and Back pain, thoracic M54.6 [facility] [place] [address] [place] [id number] [place] [address] Jun, Strain of right wrist, initi al encounter S66.911A [place] [address] [address] Jun, Chronic pancreatitis, unspecified pancre atitis type K86.1 ; Hirsuties L68.0 ; Morbid (severe) obesity due to excess calories E66.01 ; Chronic pancreatitis K86.1 and Asthma J45.909 [place] [address] [address] May, [place] [address] [address] May, Hyperlipidemia, mixed E78.2 and Muscle s pasm of back M62.[address] [address] Apr, [address] [address] Apr, Torticollis M43.[address] [address] Apr, Right-sided thoracic back pain M54.[address] [address] Mar, Rash [address] [place] [address] [address] Mar, [place] [address] [address] Jan, [place] [address] [address] Dec, [address] [address] Dec, Urinary frequency 788.41 and Nocturia mo re than twice per night 788.43 [place] [address] [address] Nov, [id number] [place] [address] Nov, [facility] [id number] [place] [address] Nov, Abdominal pain 789.00 [facility] [id number] [place] [address] October, TDAP DX V06.1 [facility] [id number] [place] [address] October, [facility] [id number] [place] [address] October, Disturbance of skin sensation 782.0 ; Wr ist pain, right 719.43 ; Hyperlipidemia 272.4 and Skin lesion of face 709.9 [facility] [id number] [place] [address] Sep, [facility] [id number] [place] [address] Sep, [facility] [id number] [place] [address] Aug, [facility] [id number] [place] [address] Aug, [facility] [id number] [place] [address] Aug, [facility] [id number] [place] [address] Aug, [facility] [id number] [place] [address] Aug, [facility] [id number] [place] [address] Aug, [facility] [id number] [place] [address] Aug, [facility] [id number] [place] [address] Aug, [facility] [id number] [place] [address] Aug, [facility] [address] [facility] [id number] [place] [address] Aug, [facility] [address] [id number] [place] [address] Aug, [facility] [address] [id number] [place] [address] Aug, [facility] [address] [id number] [place] [address] Aug, [facility] [address] [id number] [place] [address] Aug, [facility] [address] [id number] [place] [address] Jul, [facility] [address] [id number] [place] [address] Jul, [facility] [address] [id number] [place] [address] Jul, [facility] [address] [id number] [place] [address] Jul, [facility] [address] [id number] [place] [address] Jul, [facility] [address] [id number] [place] [address] Jul, [facility] [address] [id number] [place] [address] Jun, [facility] [address] [id number] [place] [address] Jun, [facility] [address] [id number] [place] [address] Jun, [facility] [address] [id number] [place] [address] Jun, [facility] [address] [id number] [place] [address] Jun, [facility] [address] [id number] [place] [address] Jun, [facility] [address] [id number] [place] [address] 15 Jun, 2014 [facility] [address] [id number] [place] [address] 15 Jun, 2014 [facility] [address] [id number] [place] [address] May, [facility] [address] [id number] [place] [address] May, [facility] [address] [id number] [place] [address] May, [facility] [address] [id number] [place] [address] May, [facility] [address] [id number] [place] [address] May, [facility] [address] [id number] [place] [address] May, [facility] [address] [id number] [place] [address] May, [facility] [address] [id number] [place] [address] May, [facility] [address] [id number] [place] [address] May, [facility] [address] [id number] [place] [address] May, [facility] [address] [id number] [place] [address] May, [facility] [address] [id number] [place] [address] May, [facility] [address] [id number] [place] [address] Apr, [facility] [address] [id number] [place] [address] Apr, [facility] [address] [facility] [id number] [place] [address] Apr, [facility] [address] [id number] [place] [address] Apr, [facility] [address] [id number] [place] [address] Apr, [facility] [address] [id number] [place] [address] Apr, [facility] [address] [id number] [place] [address] Apr, [facility] [address] [id number] [place] [address] Apr, [facility] [address] [id number] [place] [address] Apr, [facility] [address] [id number] [place] [address] Apr, [facility] [address] [id number] [place] [address] Apr, [facility] [address] [id number] [place] [address] Apr, [facility] [address] [id number] [place] [address] 14 Mar, 2014 [facility] [address] [id number] [place] [address] Mar, [facility] [address] [id number] [place] [address] Mar, [facility] [address] [id number] [place] [address] Mar, [facility] [address] [id number] [place] [address] 10 Feb, 2014 [facility] [address] [id number] [place] [address] 10 Feb, 2014 [facility] [address] [id number] [place] [address] 05 Sep, 2013 [facility] [address] [id number] [place] [address] 05 Feb, 2013 [facility] [address] [facility] [id number] [place] [address] Feb, 2013 [facility] [address] [id number] [place] [address] Feb, 2013 [facility] [address] [facility] [id number] [place] [address] Jan, [facility] [address] [facility] [id number] [place] [address] Jan, [facility] [address] [id number] [place] [address] Jan, [facility] [address] [id number] [place] [address] Jan, [facility] [address] [id number] [place] [address] Jan, [facility] [address] [id number] [place] [address] Jan, [facility] [address] [id number] [place] [address] Jan, [facility] [address] [id number] [place] [address] Jan, [facility] [address] [id number] [place] [address] Jan, [facility] [address] [facility] [id number] [place] [address] Jan, [facility] [address] [id number] [place] [address] Jan, [facility] [address] [facility] [id number] [place] [address] Jan, [facility] [address] [id number] [place] [address] Jan, [facility] [address] [facility] [id number] [place] [address] Jan, [facility] [address] [facility] [id number] [place] [address] Dec, [facility] [address] [id number] [place] [address] Dec, [facility] [address] [id number] [place] [address] Dec, [facility] [address] [facility] [id number] [place] [address] Dec, [facility] [address] [id number] [place] [address] Nov, [facility] [address] [id number] [place] [address] Nov, [facility] [address] [id number] [place] [address] Nov, [facility] [address] [id number] [place] [address] Nov, [facility] [address] [id number] [place] [address] Nov, [facility] [address] [id number] [place] [address] October, [facility] [address] [id number] [place] [address] October, [facility] [address] [id number] [place] [address] October, [facility] [address] [id number] [place] [address] October, [facility] [address] [id number] [place] [address] October, [facility] [address] [id number] [place] [address] October, [facility] [address] [id number] [place] [address] October, [facility] [address] [facility] [id number] [place] [address] October, [facility] [address] [facility] [id number] [place] [address] October, [facility] [address] [id number] [place] [address] October, [facility] [address] [id number] [place] [address] October, [facility] [address] [facility] [id number] [place] [address] October, [facility] [address] [id number] [place] [address] October, [facility] [address] [id number] [place] [address] October, [facility] [address] [id number] [place] [address] Sep, [facility] [address] [id number] [place] [address] Sep, [facility] [address] [id number] [place] [address] Sep, [facility] [address] [id number] [place] [address] Sep, [facility] [address] [id number] [place] [address] Sep, [facility] [address] [facility] [id number] [place] [address] Sep, [facility] [address] [id number] [place] [address] Sep, [facility] [address] [id number] [place] [address] Sep, [facility] [address] [id number] [place] [address] Sep, [facility] [address] [id number] [place] [address] Sep, [facility] [address] [id number] [place] [address] Sep, [facility] [address] [id number] [place] [address] Sep, [facility] [address] [id number] [place] [address] Sep, [facility] [address] [id number] [place] [address] Sep, [facility] [address] [id number] [place] [address] Sep, [facility] [address] [id number] [place] [address] Aug, [facility] [address] [id number] [place] [address] Aug, [facility] [address] [id number] [place] [address] Aug, [facility] [address] [id number] [place] [address] Aug, [facility] [address] [id number] [place] [address] Jul, [facility] [address] [id number] [place] [address] Jul, [facility] [address] [id number] [place] [address] Jul, [facility] [address] [id number] [place] [address] Jul, [facility] [address] [id number] [place] [address] Jun, [facility] [address] [id number] [place] [address] Jun, [facility] [address] [id number] [place] [address] 15 Jun, 2013 [facility] [address] [id number] [place] [address] 15 Jun, 2013 [facility] [address] [id number] [place] [address] 10 Jun, 2013 [facility] [address] [id number] [place] [address] 10 Jun, 2013 [facility] [address] [id number] [place] [address] 08 Jun, 2013 [facility] [address] [id number] [place] [address] 08 Jun, 2013 [facility] [address] [id number] [place] [address] 20 May, 2013 [facility] [address] [id number] [place] [address] 20 May, 2013 [facility] [address] [id number] [place] [address] 18 May, 2013 [facility] [address] [id number] [place] [address] 18 May, 2013 [facility] [address] [id number] [place] [address] 17 May, 2013 [facility] [address] [facility] [id number] [place] [id number] 17 May, 2013 [facility] [address] [id number] [place] [address] 17 May, 2013 [facility] [address] [id number] [place] [address] 17 May, 2013 [facility] [address] [id number] [place] [address] 16 May, 2013 [facility] [address] [id number] [place] [address] 16 May, 2013 [facility] [address] [id number] [place] [address] 14 May, 2013 [facility] [address] [id number] [place] [address] 14 May, 2013 [facility] [address] [id number] [place] [address] 13 May, 2013 [facility] [address] [id number] [place] [address] May, [facility] [address] [id number] [place] [address] 12 May, 2013 [facility] [address] [id number] [place] [address] May, [facility] [address] [id number] [place] [address] May, [facility] [address] [id number] [place] [address] May, [facility] [address] [id number] [place] [address] Apr, [facility] [address] [id number] [place] [address] Apr, [facility] [address] [id number] [place] [address] Apr, [facility] [address] [id number] [place] [address] Apr, [facility] [address] [id number] [place] [address] Aug, [facility] [address] [id number] [place] [address] Aug, [facility] [address] [id number] [place] [address] 06 Aug, 2012 [facility] [address] [id number] [place] [address] 05 Aug, 2012 [facility] [address] [id number] [place] [address] 04 Jul, 2012 [facility] [address] [id number] [place] [address] Jun, [facility] [address] [id number] [place] [address] Jun, [facility] [address] [id number] [place] [address] Jun, [facility] [address] [id number] [place] [address] Jun, [facility] [address] [id number] [place] [address] May, [facility] [address] [id number] [place] [address] May, [facility] [address] [id number] [place] [address] May, [facility] [address] [id number] [place] [address] May, [facility] [id number] [place] [address] May, [facility] [address] [id number] [place] [address] May, [facility] [address] [id number] [place] [address] May, [facility] [address] [id number] [place] [address] Apr, [facility] [id number] [place] [address] Apr, [facility] [address] [id number] [place] [address] Apr, [facility] [address] [id number] [place] [address] Apr, [facility] [id number] [place] [address] Apr, [facility] [address] [id number] [place] [address] Apr, [facility] [id number] [place] [address] Apr, [facility] [address] [facility] [id number] [place] [address] Mar, [facility] [address] [facility] [id number] [place] [address] Mar, [facility] [address] [id number] [place] [address] Mar, [facility] [address] [id number] [place] [address] Mar, [facility] [address] [facility] [id number] [place] [address] Mar, [facility] [address] [id number] [place] [address] Mar, [facility] [address] [id number] [place] [address] Mar, [facility] [address] [id number] [place] [address] Mar, [facility] [address] [id number] [place] [address] Mar, [facility] [address] [id number] [place] [address] Mar, [facility] [address] [id number] [place] [address] Mar, [facility] [address] [id number] [place] [address] Mar, [facility] [address] [facility] [id number] [place] [address] Feb, [facility] [address] [facility] [id number] [place] [address] Jan, [facility] [address] [id number] [place] [address] Jan, [facility] [address] [id number] [place] [address] Jan, [facility] [address] [id number] [place] [address] Jan, [facility] [address] [id number] [place] [address] Jan, [facility] [address] [id number] [place] [address] Dec, [facility] [address] [id number] [place] [address] Dec, [facility] [address] [id number] [place] [address] Nov, [facility] [address] [id number] [place] [address] Nov, [facility] [address] [id number] [place] [address] Nov, [facility] [address] [id number] [place] [address] October, [facility] [address] [id number] [place] [address] October, [facility] [address] [id number] [place] [address] October, [facility] [address] [id number] [place] [address] October, [facility] [address] [id number] [place] [address] October, [facility] [address] [id number] [place] [address] October, [facility] [address] [id number] [place] [address] October, [facility] [address] [id number] [place] [address] Sep, [facility] [address] [id number] [place] [address] Sep, [facility] [address] [id number] [place] [address] Sep, [facility] [address] [id number] [place] [address] 25 Sep, 2011 [facility] [address] [id number] [place] [address] 24 Sep, 2011 [facility] [address] [id number] [place] [address] 19 Sep, 2011 [facility] [address] [id number] [place] [address] 17 Sep, 2011 [facility] [address] [id number] [place] [address] 16 Sep, 2011 [facility] [address] [id number] [place] [address] 16 Sep, 2011 [facility] [address] [id number] [place] [address] 14 Sep, 2011 [facility] [address] [id number] [place] [address] 13 Sep, 2011 [facility] [address] [id number] [place] [address] 10 Sep, 2011 [facility] [address] [id number] [place] [address] 09 Sep, 2011 [facility] [address] [id number] [place] [address] 27 Aug, 2011 [facility] [address] [id number] [place] [address] Aug, [facility] [address] [id number] [place] [address] 08 Aug, 2011 [facility] [address] [id number] [place] [address] 06 Aug, 2011 [facility] [address] [id number] [place] [address] 28 Jul, 2011 [facility] [address] [id number] [place] [address] Jul, [facility] [address] [id number] [place] [address] 16 Jul, 2011 [facility] [address] [id number] [place] [address] 15 Jul, 2011 [facility] [address] [id number] [place] [address] 14 Jul, 2011 [facility] [address] [id number] [place] [address] 10 Jul, 2011 [facility] [address] [id number] [place] [address] Jun, [facility] [address] [id number] [place] [address] Jun, [facility] [address] [id number] [place] [address] Jun, [facility] [address] [id number] [place] [address] Jun, [facility] [address] [id number] [place] [address] Jun, [facility] [address] [id number] [place] [address] May, [facility] [address] [id number] [place] [address] May, [facility] [address] [id number] [place] [address] May, [facility] [address] [id number] [place] [address] 14 May, 2011 [facility] [address] [id number] [place] [address] May, [facility] [address] [id number] [place] [address] 07 May, 2011 [facility] [address] [id number] [place] [address] 05 May, 2011 [facility] [address] [id number] [place] [address] 15 Apr, 2011 [facility] [address] [id number] [place] [address] 15 Apr, 2011 [facility] [address] [id number] [place] [address] Apr, [facility] [address] [id number] [place] [address] Apr, [facility] [address] [id number] [place] [address] Apr, [facility] [address] [id number] [place] [address] Apr, [facility] [address] [id number] [place] [address] Mar, [facility] [address] [id number] [place] [address] Mar, [facility] [address] [id number] [place] [address] Mar, [facility] [address] [id number] [place] [address] Mar, [facility] [address] [id number] [place] [address] Jan, [facility] [address] [id number] [place] [address] Dec, [facility] [address] [id number] [place] [address] Dec, [facility] [address] [id number] [place] [address] October, [facility] [address] [id number] [place] [address] Sep, [facility] [id number] [place] [address] 14 Sep, 2010 [facility] [address] [id number] [place] [address] 17 Jul, 2010 [facility] [address] [id number] [place] [address] 16 Jul, 2010 [facility] [address] [id number] [place] [address] May, [facility] [address] [id number] [place] [address] May, [facility] [address] [id number] [place] [address] May, [facility] [address] [id number] [place] [address] May, [facility] [address] [id number] [place] [address] Apr, [facility] [address] [id number] [place] [address] Apr, [facility] [address] [id number] [place] [address] Apr, [facility] [address] [id number] [place] [address] Apr, [facility] [address] [id number] [place] [address] Apr, [facility] [address] [id number] [place] [address] 21 Mar, 2010 [facility] [address] [id number] [place] [address] 14 Mar, 2010 [facility] [address] [id number] [place] [address] 13 Mar, 2010 [facility] [address] [id number] [place] [address] 12 Mar, 2010 [facility] [address] [id number] [place] [address] Jan, [facility] [address] [id number] [place] [address] 15 Dec, 2009 [facility] [address] [id number] [place] [address] 10 Sep, 2009 [facility] [address] [address] [address] May, [facility] [address] [address] May, [facility] [address] [address] May, [facility] [address] [address] Apr, [facility] [address] [address] Apr, [facility] [address] [id number] Apr, [facility] [address] [address] Apr, [facility] [address] [address] Apr, [facility] [address] [address] Mar, [facility] [address] [address] Mar, [facility] [address] [address] Jul, IMMUNIZATIONS No Known Immunizations SOCIAL HISTORY Never Assessed REASON FOR VISIT ER Visit PLAN OF CARE VITAL SIGNS MEDICATIONS [...] and replaced VC 10/2018 Hospitalization History Cellulitis[facility] Hospitalization History [facility] [place]- Abd pain 03/07/2017 Hospitalization History [facility] [place]- Abd pain 03/14/2017 Hospitalization History [facility] [place]- No bowel movement, rash 04/13/2017 Hospitalization History [facility] [place]- Abd pain r/ t kidney surgery on 04/10/17 04/17/2017 Hospitalization History [facility] [place]- Abd pain r/ t kidney surgery on 04/10/17 04/18/2017 Hospitalization History [facility] [place]- Lower abd pain 04/17 Hospitalization History [facility] [place]- Cannot urinate 05/17 Hospitalization History [facility] [place]- Pancreatitis Sx Hospitalization History [facility] [place]- Stomach pain 2017 Hospitalization History [facility] [place]- Left side pain 07/19 Hospitalization History [facility]- Incision site infec tion 08/30/[address] [facility]- Post Op Serom a/Hematoma Left Abdomen. Discharged 09/04/17- Dr Daniel 09/02/2017 Hospitalization History [facility] [place]- Right shoulder and back pain 10/22/2017 Hospitalization History [facility] [place]- Shoulder/Back pain 11/11/2017 Hospitalization History [facility] [place]- Right shoulder blad e pain 12/04/2017 Hospitalization History [facility] [place]- C-Diff 12/13/2017 Hospitalization History C diff et MRSA 12/27/2017 Hospitalization History [facility] Bowel Obstruction 10/2018 Hospitalization History [facility] [place]- Abdominal pain and nausea 01/08/2019
--- OUTSIDE RECORDS SUMMARY | 2019-10-17 05:15 | XMS REPORT ---
Author Author Janeth Jensen Organization [facility] Address [address] [place] [address] Care Team Providers Care Pocket Secretary Assembler Name Role Phone RAQUEL Jensen Unavailable PROBLEMS Type Condition ICD9-CM Code [id number] Code Onset Dates Condition S tatus SNOMED Code Problem History of renal cell carcinoma Z85.528 Active 047410317 Problem Hepatic steatosis K76.0 Active 19 0386016 Problem Nodule of left lung R91.1 Active 721791880 Problem Right carpal tunnel syndrome G56.01 A ctive 453711450308615 Problem Mild obstructive sleep apnea G47.33 A ctive 36569089 Problem Moderate episode of recurrent major depressive disorder F33.1 Active 219569617 Problem Trichotillomania F63.3 Active 171 35286 Problem Morbid (severe) obesity due to excess calories E66 .01 Active 854396160 Problem Chronic tension-type headache, intractable G44.221 Active 872442702 Problem Asthma J45.909 Active 137458454 Problem Chronic pancreatitis K86.1 Active 527646884 Problem Atelectasis J98.11 Active 06326304 Problem Polydipsia R63.1 Active 05629624 Problem Chronic post-traumatic stress disorder (PTSD) F43. 12 Active 645685843 Problem Restless leg syndrome G25.81 Active 34754791 Problem Chronic fatigue R53.82 Active 8422 9001 Problem Intestinal malabsorption, unspecified K90.9 Active 62123798 Problem Primary osteoarthritis of right knee M17.11 Active 931590198571517 Problem Social phobia, generalized F40.11 Act yolanda 64560964 Problem FH: polycystic ovary Z84.2 Active 624846623 Problem Social phobia, unspecified F40.10 Act yolanda 23927085 Problem Hirsuties L68.0 Active 937942288 Problem Hyperlipidemia, mixed E78.2 Active 659294240 Problem Obesities, morbid E66.01 Active 23 1209837 Problem Menopausal symptoms N95.1 Active 99814300 Problem Conflict between patient and family Z63.9 Active 71263244 Problem Morbid obesity E66.01 Active 34167 6002 ALLERGIES No Information ENCOUNTERS Encounter Location Date Diagnosis [facility] [id number] [place] [address] Jul, [facility] [id number] [place] [address] May, [address] [place] [address] May, [facility] [address] [address] May, [facility] [address] [address] May, [facility] [address] [address] May, [facility] [address] [address] Apr, [facility] [id number] [place] [address] Apr, [facility] [address] [address] Apr, [facility] [id number] [place] [address] Mar, Cervical radiculopathy M54.12 [facility] [id number] [place] [address] Mar, [facility] [address] [address] Mar, [facility] [address] [address] Mar, [facility] [address] [address] Mar, [facility] [address] [place] [address] Mar, [facility] [id number] [place] [address] Mar, [facility] [id number] [place] [address] Mar, [facility] [id number] [place] [address] Feb, Chronic cough R05 [facility] [address] [address] Feb, [facility] [id number] [place] [address] Feb, [facility] [address] [address] Feb, Cervical radiculopathy M54.12 [facility] [address] [address] 17 Feb, 2019 Pain of left thumb M79.645 [facility] [id number] [place] [address] Feb, [facility] [address] [address] Feb, [facility] [id number] [place] [address] Feb, [facility] [address] [address] Feb, Cough present for greater than 3 weeks R 05 [facility] [id number] [place] [address] Feb, Cough present for greater than 3 weeks R 05 ; Feels sick R68.89 ; History of renal cell carcinoma Z85.528 and Morbid obesity E66.01 [facility] [id number] [place] [address] Jan, [facility] [address] [facility] [place] [id number] Jan, Oral health maintenance status requiring routine preventive dental care K08.9 ; Dental examination Z01.20 and Caries K02.9 [place] [address] [address] Jan, Dysuria R30.0 [place] [address] [address] Jan, Dysuria R30.0 [place] [address] [address] Jan, Viral pharyngitis J02.9 and Morbid obesi ty E66.01 [place] [address] [address] Jan, [place] [address] [address] Jan, Left sided abdominal pain R10.9 ; Other acute postprocedural pain G89.18 ; History of renal cell carcinoma Z85.528 and Morbid obesity E66.01 [place] [address] [address] Dec, Dental examination Z01.20 [place] [address] [address] Dec, Elevated LFTs R94.[address] [address] Dec, Encounter for Medicare annual wellness e xam Z00.00 ; Chronic tension- type headache, intractable G44.221 ; Morbid (severe) obesity due to excess calories E66.01 ; Hyperlipidemia, mixed E78.2 ; Chronic pancreatitis K86.1 ; Asthma J45.909 ; Moderate episode of recurrent major depressive disorder F33.1 ; Chronic fatigue R53.82 and Social phobia, unspecified F40.10 [place] [address] [address] Dec, [address] [address] Dec, [place] [address] [address] Dec, [place] [address] [address] Dec, Hyperlipidemia, mixed E78.2 ; History of renal cell carcinoma Z85.528 and Restless leg syndrome G25.81 [place] [address] [address] Dec, Hyperlipidemia, mixed E78.2 ; Chronic pa ncreatitis K86.1 ; Restless leg syndrome G25.81 ; Nodule of left lung R91.1 ; History of renal cell carcinoma Z85.528 ; Leg swelling M79.89 ; Morbid obesity E66.01 and Observed sleep apnea G47.30 [place] [address] [address] Nov, [place] [address] [address] Nov, [place] [address] [address] Nov, [facility] [address] [facility] [id number] [address] [place] [address] Nov, Other acute postprocedural p ain G89.18 and Unspecified abdominal pain R10.9 [place] [address] [address] October, [place] [address] [address] October, Social phobia, generalized F40.11 ; Conf lict between patient and family Z63.9 and Morbid obesity E66.01 [place] [address] [address] October, [facility] [address] [address] October, [place] [address] [address] October, [facility] [address] [facility] [place] [address] October, [address] [place] [address] October, [facility] [address] [facility] [place] [address] October, [address] [place] [address] October, [facility] [address] [facility] [place] [address] October, Morbid obesity E66.01 ; Routine gynecolo gical examination Z01.419 and Menopausal symptoms N95.1 [facility] [address] [facility] [place] [address] October, [facility] [address] [place] [address] Sep, [facility] [address] [facility] [place] [address] Sep, [facility] [address] [id number] [place] [address] Sep, [facility] [address] [facility] [place] [address] Sep, [facility] [address] [facility] [place] [address] Sep, Lower extremity edema R60.0 [facility] [address] [facility] [place] [address] Sep, [facility] [address] [facility] [id number] [address] [place] [address] Sep, Lower extremity edema R60.0 and Morbid obesity E66.01 [facility] [address] [id number] [place] [address] Sep, [facility] [address] [facility] [place] [address] Sep, [facility] [id number] [place] [address] Aug, [facility] [id number] [place] [address] Aug, Obesities, morbid E66.01 and Morbid obes ity E66.01 [facility] [id number] [place] [address] Aug, [facility] [address] [place] [address] Jul, [facility] [address] [address] Jul, [facility] [address] [address] Jul, [facility] [address] [address] Jul, Numbness of right hand R20.0 [facility] [address] [address] Jul, [facility] [address] [address] Jul, Numbness of right hand R20.0 [facility] [address] [address] Jul, [facility] [address] [address] Jul, [facility] [address] [address] Jul, Right-sided thoracic back pain M54.6 [facility] [id number] [place] [address] Jul, [facility] [address] [address] Jul, [facility] [address] [address] Jul, [facility] [address] [address] Jul, [facility] [address] [address] Jun, [facility] [address] [address] Jun, Acute pain of right shoulder M25.511 ; N umbness of right hand R20.0 and Trapezius muscle spasm M62.838 [place] [address] [address] Jun, [place] [address] [address] Jun, [place] [address] [address] Jun, Cough R05 ; BMI 50.0-59.9, adult Z68.43 and Morbid obesity E66.01 [place] [address] [address] Jun, [facility] [address] [address] Jun, [facility] [id number] [place] [address] Jun, BMI 45.0-49.9, adult Z68.42 and Acute non-recurrent maxillary sinusitis J01.00 [facility] [id number] [place] [address] 09 Jun, 2018 Acute sinusitis J01.90 ; Dys uria R30.0 and BMI 45.0- 49.9, adult Z68.42 [facility] [address] [address] Jun, [facility] [address] [address] Jun, [facility] [address] [address] May, [facility] [address] [address] May, [facility] [address] [address] May, [facility] [address] [address] May, [facility] [address] [address] May, [facility] [address] [address] Apr, Generalized social phobia F40.11 ; Trich otillomania F63.3 ; Chronic post-traumatic stress disorder (PTSD) F43.12 and BMI 45.0-49.9, adult Z68.42 [address] [address] [address] Apr, [address] [address] [address] Apr, Chronic tension-type headache, intractab le G44.221 [address] [address] [address] Apr, [facility] [id number] [place] [address] Mar, [facility] [address] [place] [address] Mar, BMI 45.0-49.9, adult Z68.42 and Pimples R23.8 [address] [address] [address] Mar, [address] [address] [address] Mar, [facility] [address] [address] Mar, Decreased urination R34 ; Chronic fatigu e R53.82 ; Peripheral edema R60.9 ; Diarrhea, unspecified type R19.7 ; Non-intractable vomiting with nausea, unspecified vomiting type R11.2 ; BMI 45.0-49.9, adult Z68.42 and Chronic post- traumatic stress disorder (PTSD) F43.12 [facility] [address] [address] Mar, Intestinal malabsorption, unspecified K9 0.9 ; Diarrhea, unspecified R19.7 ; Urinary urgency R39.15 ; Rectal bleeding K62.5 and Decreased urine output R34 [address] [address] [address] Mar, Decreased urine output R34 [address] [address] [address] Mar, Rectal bleeding K62.5 [place] [address] [address] Mar, Rectal bleeding K62.5 [place] [address] [address] Mar, Urinary urgency R39.15 [address] [address] [address] Mar, Urinary urgency R39.15 [address] [address] [address] Mar, Primary osteoarthritis of right knee M17 .11 and BMI 45.0-49.9, adult Z68.42 [address] [address] [address] Mar, [place] [address] [address] Feb, Left upper arm pain M79.622 [facility] [address] [address] Feb, [facility] [address] [address] Jan, Acute pain of right knee M25.561 ; Right upper quadrant abdominal pain R10.11 and BMI 45.0-49.9, adult Z68.42 [address] [address] [address] Jan, [facility] [address] [address] Jan, [facility] [address] [address] Dec, [address] [place] [address] Dec, Intestinal malabsorption, unspecified K9 0.9 and Diarrhea, unspecified R19.7 [place] [address] [address] Dec, [place] [address] [address] Dec, Strep throat J02.0 ; Intestinal malabsor ption, unspecified K90.9 ; Diarrhea, unspecified R19.7 ; Postoperative seroma involving digestive system after non-digestive system procedure K91.873 ; Hyperlipidemia, mixed E78.2 and BMI 45.0-49.9, adult Z68.42 [place] [address] [address] Dec, [place] [address] [address] Dec, Nausea R11.0 [facility] [id number] [place] [address] Dec, [facility] [address] [facility] [id number] [address] [place] [address] Dec, Sore throat J02.9 ; Strep th roat J02.0 and BMI 45.0- 49.9, adult Z68.42 [facility] [address] [address] Dec, [facility] [id number] [place] [address] Dec, [facility] [id number] [place] [address] Dec, [facility] [id number] [place] [address] Dec, [facility] [id number] [place] [address] Dec, [facility] [id number] [place] [address] Dec, [facility] [id number] [place] [address] Dec, [facility] [id number] [place] [address] Dec, [facility] [id number] [place] [address] Dec, Clostridium difficile colitis A04.72 ; I ntractable vomiting with nausea, unspecified vomiting type R11.2 and BMI 45.0-49.9, adult Z68.42 [facility] [id number] [place] [address] Dec, [facility] [id number] [place] [address] Nov, [facility] [id number] [place] [address] Nov, [facility] [id number] [place] [address] Nov, [facility] [id number] [place] [address] Nov, [facility] [address] [facility] [id number] [address] [place] [address] Nov, [facility] [id number] [place] [address] Nov, Hyperlipidemia, mixed E78.2 [facility] [address] [facility] [id number] [address] [place] [address] Nov, Acute suppurative otitis med ia of right ear without spontaneous rupture of tympanic membrane, recurrence not specified H66.001 and BMI 45.0-49.9, adult Z68.42 [address] [address] [address] Nov, Hyperlipidemia, mixed E78.2 [place] [address] [address] Nov, [place] [address] [address] Nov, [place] [address] [address] Nov, Nodule of left lung R91.1 [place] [address] [address] Nov, Medicare annual wellness visit, initial Z00.00 [...] adult Z68.42 and Encounter for immunization Z23 [place] [address] [address] October, [place] [address] [address] October, Nodule of left lung R91.1 [place] [address] [address] October, Nodule of left lung R91.1 [place] [address] [address] October, Recurrent major depressive disorder, in partial remission F33.41 ; Restless leg syndrome G25.81 ; Generalized social phobia F40.11 ; Chronic post- traumatic stress disorder (PTSD) F43.12 ; BMI 45.0-49.9, adult Z68.42 and Trichotillomania F63.3 [place] [address] [address] October, [place] [address] [address] Sep, Chronic fatigue R53.82 and BMI 45.0-49.9 , adult Z68.42 [place] [address] [address] Aug, [place] [address] [address] Jul, Restless leg syndrome G25.81 and B12 def iciency E53.8 [place] [address] [address] Jul, [place] [address] [address] Jul, [place] [address] [address] Jun, [place] [address] [address] Jun, Fatigue, unspecified type R53.83 ; Histo ry of renal cell carcinoma Z85.528 ; Chronic pancreatitis K86.1 ; Restless leg syndrome G25.81 ; Dark urine R82.99 and BMI 45.0-49.9, adult Z68.42 [place] [address] [address] Jun, [place] [address] [address] Jun, [place] [address] [address] Jun, [place] [address] [address] Jun, [place] [address] [address] May, Chronic post-traumatic stress disorder ( PTSD) F43.12 ; Moderate episode of recurrent major depressive disorder F33.1 ; Trichotillomania F63.3 and Generalized social phobia F40.11 [place] [address] [address] May, [place] [address] [address] May, Chronic post-traumatic stress disorder ( PTSD) F43.12 ; Moderate episode of recurrent major depressive disorder F33.1 ; Trichotillomania F63.3 and Generalized social phobia F40.11 [place] [address] [address] May, Hyperlipidemia, mixed E78.2 ; Morbid (se nehemias) obesity due to excess calories E66.01 ; Chronic post-traumatic stress disorder (PTSD) F43.12 ; Moderate episode of recurrent major depressive disorder F33.1 ; Trichotillomania F63.3 and Generalized social phobia F40.11 [place] [address] [address] Apr, [place] [address] [address] Apr, Hyperlipidemia, mixed E78.2 ; Morbid (se nehemias) obesity due to excess calories E66.01 ; Chronic post-traumatic stress disorder (PTSD) F43.12 ; Moderate episode of recurrent major depressive disorder F33.1 ; Trichotillomania F63.3 and Generalized social phobia F40.11 [place] [address] [address] Apr, Trichotillomania F63.3 ; Generalized soc ial phobia F40.11 ; Chronic post-traumatic stress disorder (PTSD) F43.12 and Moderate episode of recurrent major depressive disorder F33.1 [facility] [address] [address] Apr, [facility] [address] [address] Apr, [facility] [address] [address] Mar, Moderate episode of recurrent major depr essive disorder F33.1 ; Trichotillomania F63.3 ; Chronic post-traumatic stress disorder (PTSD) F43.12 ; Generalized social phobia F40.11 and Restless leg syndrome G25.81 [place] [address] [address] Mar, [facility] [address] [address] Mar, [place] [address] [address] Feb, Left kidney mass N28.89 [facility] [address] [address] Jan, [facility] [address] [address] Dec, Polydipsia R63.1 ; Chronic pancreatitis K86.1 and Fatigue, unspecified type R53.[address] [address] Nov, [facility] [address] [address] Nov, [facility] [address] [address] Nov, Headache around the eyes R51 [facility] [address] [address] Nov, [facility] [address] [address] October, STD exposure Z20.2 [place] [address] [address] October, STD exposure Z20.2 [place] [address] [address] October, Chronic post-traumatic stress disorder ( PTSD) F43.12 ; Generalized social phobia F40.11 ; Trichotillomania F63.3 and Restless leg syndrome G25.81 [place] [address] [address] October, [place] [address] [address] Sep, [place] [address] [address] Aug, [place] [address] [address] Aug, [address] [address] Aug, Neck mass R22.[address] [address] Aug, Atelectasis J98.11 [place] [address] [address] 28 Jul, 2016 Hyperlipidemia, mixed E78.2 ; Atypical p neumonia J18.9 and Neck mass R22.1 [place] [address] [address] 15 Jul, 2016 Hemoptysis R04.2 [place] [address] [address] 08 Jul, 2016 Acute non-recurrent pansinusitis J01.40 ; Hemoptysis R04.2 ; Polydipsia R63.1 and Malaise R53.81 [facility] [address] [facility] [id number] [address] [place] [address] May, Other viral agents as the ca use of diseases classified elsewhere B97.89 and Acute upper respiratory infection, unspecified J06.9 [facility] [place] [address] [address] [place] [id number] [place] [id number] Mar, Nausea R11.0 [facility] [place] [address] [address] [place] [id number] [place] [phone] 28 Dec, 2015 Hives L50.9 [place] [address] [address] 14 Dec, 2015 [facility] [place] [address] [address] [place] [id number] [place] [phone] 10 Dec, 2015 Cutaneous abscess of limb, u nspecified L02.419 ; Cellulitis of unspecified part of limb L03.119 ; Encounter for incision and drainage procedure Z01.89 and Encounter for recheck of abscess following i ncision and drainage Z09 [facility] [place] [address] [address] [place] [id number] [place] [address] 09 Dec, 2015 Abscess of leg, right L02.41 5 [place] [address] [address] 08 Dec, 2015 Cellulitis of unspecified part of limb L 03.119 and Cutaneous abscess of limb, unspecified L02.419 [place] [address] [address] Dec, [place] [address] [address] Dec, [facility] [place] [address] [id number] [place] [address] Aug, [place] [address] [id number] Aug, [facility] [place] [address] [address] [place] [id number] [place] [id number] 04 Jul, 2015 Pain in unspecified wrist M2 5.539 and Back pain, thoracic M54.6 [facility] [place] [address] [place] [address] [id number] [address] 13 Jun, 2015 Strain of right wrist, initi al encounter S66.911A [place] [address] [address] Jun, Chronic pancreatitis, unspecified pancre atitis type K86.1 ; Hirsuties L68.0 ; Morbid (severe) obesity due to excess calories E66.01 ; Chronic pancreatitis K86.1 and Asthma J45.909 [place] [address] [address] May, [place] [address] [address] May, Hyperlipidemia, mixed E78.2 and Muscle s pasm of back M62.[address] [address] Apr, [place] [address] [address] Apr, Torticollis M43.6 [place] [address] [address] Apr, Right-sided thoracic back pain M54.[address] [address] Mar, Rash R21 [place] [address] [address] Mar, [place] [address] [address] Jan, [place] [address] [address] Dec, [address] [address] Dec, Urinary frequency 788.41 and Nocturia mo re than twice per night 788.43 [place] [address] [address] Nov, [facility] [id number] [place] [address] Nov, [facility] [id number] [place] [address] Nov, Abdominal pain 789.00 [facility] [id number] [place] [address] October, TDAP DX V06.1 [facility] [id number] [place] [address] October, [facility] [id number] [place] [address] October, Disturbance of skin sensation 782.0 ; Wr ist pain, right 719.43 ; Hyperlipidemia 272.4 and Skin lesion of face 709.9 [facility] [id number] [place] [address] Sep, [facility] [id number] [place] [address] Sep, [facility] [id number] [place] [address] Aug, [facility] [id number] [place] [address] Aug, [facility] [id number] [place] [address] Aug, [facility] [id number] [place] [address] Aug, [facility] [id number] [place] [address] Aug, [facility] [id number] [place] [address] Aug, [facility] [id number] [place] [address] 14 Aug, 2014 [facility] [id number] [place] [address] 14 Aug, 2014 [facility] [address] [id number] [place] [address] Aug, [facility] [address] [id number] [place] [address] Aug, [facility] [address] [id number] [place] [address] Aug, [facility] [address] [id number] [place] [address] Aug, [facility] [address] [id number] [place] [address] Aug, [facility] [address] [id number] [place] [address] Aug, [facility] [address] [id number] [place] [address] Jul, [facility] [address] [id number] [place] [address] Jul, [facility] [address] [id number] [place] [address] Jul, [facility] [address] [id number] [place] [address] Jul, [facility] [address] [id number] [place] [address] Jul, [facility] [address] [id number] [place] [address] Jul, [facility] [address] [id number] [place] [address] Jun, [facility] [address] [id number] [place] [address] Jun, [facility] [address] [id number] [place] [address] Jun, [facility] [address] [id number] [place] [address] Jun, [facility] [address] [id number] [place] [address] Jun, [facility] [address] [id number] [place] [address] Jun, [facility] [address] [id number] [place] [address] Jun, [facility] [address] [id number] [place] [address] 15 Jun, 2014 [facility] [address] [id number] [place] [address] May, [facility] [address] [id number] [place] [address] May, [facility] [address] [id number] [place] [address] May, [facility] [address] [id number] [place] [address] May, [facility] [address] [id number] [place] [address] May, [facility] [address] [id number] [place] [address] May, [facility] [address] [id number] [place] [address] May, [facility] [address] [id number] [place] [address] May, [facility] [address] [id number] [place] [address] May, [facility] [address] [id number] [place] [address] May, [facility] [address] [id number] [place] [address] May, [facility] [address] [id number] [place] [address] May, [facility] [address] [id number] [place] [address] Apr, [facility] [address] [id number] [place] [address] Apr, [facility] [address] [id number] [place] [address] Apr, [facility] [address] [id number] [place] [address] Apr, [facility] [address] [id number] [place] [address] Apr, [facility] [address] [id number] [place] [address] Apr, [facility] [address] [id number] [place] [address] Apr, [facility] [address] [id number] [place] [address] Apr, [facility] [address] [id number] [place] [address] Apr, [facility] [address] [id number] [place] [address] Apr, [facility] [address] [id number] [place] [address] Apr, [facility] [address] [id number] [place] [address] Apr, [facility] [address] [id number] [place] [address] Mar, [facility] [address] [id number] [place] [address] Mar, [facility] [address] [id number] [place] [address] Mar, [facility] [address] [id number] [place] [address] Mar, [facility] [address] [id number] [place] [address] Feb, [facility] [address] [id number] [place] [address] Feb, [facility] [address] [id number] [place] [address] Feb, 2013 [facility] [address] [facility] [id number] [place] [address] Feb, 2013 [facility] [address] [facility] [id number] [place] [address] Feb, 2013 [facility] [address] [id number] [place] [address] Feb, 2013 [facility] [address] [facility] [id number] [place] [address] Jan, 2013 [facility] [address] [id number] [place] [address] Jan, [facility] [address] [id number] [place] [address] Jan, [facility] [address] [id number] [place] [address] Jan, [facility] [address] [id number] [place] [address] Jan, [facility] [address] [id number] [place] [address] Jan, [facility] [address] [id number] [place] [address] Jan, [facility] [address] [id number] [place] [address] Jan, [facility] [address] [id number] [place] [address] Jan, [facility] [address] [facility] [id number] [place] [address] Jan, [facility] [address] [id number] [place] [address] Jan, [facility] [address] [id number] [place] [address] Jan, [facility] [address] [id number] [place] [address] Jan, [facility] [address] [facility] [id number] [place] [address] Jan, [facility] [address] [facility] [id number] [place] [address] Dec, [facility] [address] [id number] [place] [address] Dec, [facility] [address] [facility] [id number] [place] [address] Dec, [facility] [address] [facility] [id number] [place] [address] Dec, [facility] [address] [id number] [place] [address] Nov, [facility] [address] [id number] [place] [address] Nov, [facility] [address] [id number] [place] [address] Nov, [facility] [address] [id number] [place] [address] Nov, [facility] [address] [id number] [place] [address] Nov, [facility] [address] [id number] [place] [address] October, [facility] [address] [id number] [place] [address] October, [facility] [address] [facility] [id number] [place] [address] October, [facility] [address] [id number] [place] [address] October, [facility] [address] [id number] [place] [address] October, [facility] [address] [id number] [place] [address] October, [facility] [address] [id number] [place] [address] October, [facility] [address] [id number] [place] [address] October, [facility] [address] [id number] [place] [address] October, [facility] [address] [id number] [place] [address] October, [facility] [address] [id number] [place] [address] October, [facility] [address] [id number] [place] [address] October, [facility] [address] [id number] [place] [address] October, [facility] [address] [id number] [place] [address] October, [facility] [address] [id number] [place] [address] Sep, [facility] [address] [id number] [place] [address] Sep, [facility] [address] [id number] [place] [address] Sep, [facility] [address] [id number] [place] [address] Sep, [facility] [address] [id number] [place] [address] Sep, [facility] [address] [id number] [place] [address] Sep, [facility] [address] [id number] [place] [address] Sep, [facility] [address] [id number] [place] [address] Sep, [facility] [address] [id number] [place] [address] Sep, [facility] [address] [id number] [place] [address] Sep, [facility] [address] [id number] [place] [address] Sep, [facility] [address] [id number] [place] [address] Sep, [facility] [address] [id number] [place] [address] Sep, [facility] [address] [id number] [place] [address] Sep, [facility] [address] [id number] [place] [address] Sep, [facility] [address] [id number] [place] [address] Aug, [facility] [address] [id number] [place] [address] Aug, [facility] [address] [id number] [place] [address] Aug, [facility] [address] [id number] [place] [address] Aug, [facility] [address] [id number] [place] [address] Jul, [facility] [address] [id number] [place] [address] Jul, [facility] [address] [id number] [place] [address] Jul, [facility] [address] [id number] [place] [address] Jul, [facility] [address] [id number] [place] [address] Jun, [facility] [address] [id number] [place] [address] Jun, [facility] [address] [id number] [place] [address] 15 Jun, 2013 [facility] [address] [facility] [id number] [place] [address] 15 Jun, 2013 [facility] [address] [facility] [id number] [place] [address] 10 Jun, 2013 [facility] [address] [id number] [place] [address] 10 Jun, 2013 [facility] [address] [id number] [place] [address] 08 Jun, 2013 [facility] [address] [id number] [place] [address] 08 Jun, 2013 [facility] [address] [id number] [place] [address] 20 May, 2013 [facility] [address] [id number] [place] [address] 20 May, 2013 [facility] [address] [id number] [place] [address] 18 May, 2013 [facility] [address] [id number] [place] [address] 18 May, 2013 [facility] [address] [id number] [place] [address] 17 May, 2013 [facility] [address] [facility] [id number] [place] [id number] 17 May, 2013 [facility] [address] [id number] [place] [address] 17 May, 2013 [facility] [address] [id number] [place] [address] 17 May, 2013 [facility] [address] [id number] [place] [address] 16 May, 2013 [facility] [address] [id number] [place] [address] 16 May, 2013 [facility] [address] [id number] [place] [address] 14 May, 2013 [facility] [address] [id number] [place] [address] 14 May, 2013 [facility] [address] [id number] [place] [address] 13 May, 2013 [facility] [address] [id number] [place] [address] May, [facility] [address] [id number] [place] [address] 12 May, 2013 [facility] [address] [id number] [place] [address] 12 May, 2013 [facility] [address] [id number] [place] [address] May, [facility] [address] [id number] [place] [address] May, [facility] [address] [id number] [place] [address] Apr, [facility] [address] [id number] [place] [address] Apr, [facility] [address] [id number] [place] [address] Apr, [facility] [address] [id number] [place] [address] Apr, [facility] [address] [id number] [place] [address] Aug, [facility] [address] [id number] [place] [address] Aug, [facility] [address] [id number] [place] [address] 06 Aug, 2012 [facility] [address] [id number] [place] [address] 05 Aug, 2012 [facility] [address] [id number] [place] [address] Jul, [facility] [address] [id number] [place] [address] Jun, [facility] [address] [id number] [place] [address] Jun, [facility] [address] [id number] [place] [address] Jun, [facility] [address] [id number] [place] [address] Jun, [facility] [address] [id number] [place] [address] May, [facility] [address] [id number] [place] [address] May, [facility] [address] [id number] [place] [address] May, [facility] [address] [id number] [place] [address] May, [facility] [id number] [place] [address] May, [facility] [address] [id number] [place] [address] May, [facility] [address] [id number] [place] [address] May, [facility] [address] [id number] [place] [address] Apr, [facility] [address] [id number] [place] [address] Apr, [facility] [address] [id number] [place] [address] Apr, [facility] [address] [id number] [place] [address] Apr, [facility] [address] [id number] [place] [address] Apr, [facility] [address] [id number] [place] [address] Apr, [facility] [address] [id number] [place] [address] Apr, [facility] [address] [facility] [id number] [place] [address] Mar, [facility] [address] [facility] [id number] [place] [address] Mar, [facility] [address] [id number] [place] [address] Mar, [facility] [address] [id number] [place] [address] Mar, [facility] [address] [facility] [id number] [place] [address] Mar, [facility] [address] [id number] [place] [address] Mar, [facility] [address] [id number] [place] [address] Mar, [facility] [address] [id number] [place] [address] Mar, [facility] [address] [id number] [place] [address] Mar, [facility] [address] [id number] [place] [address] Mar, [facility] [address] [id number] [place] [address] Mar, [facility] [address] [id number] [place] [address] Mar, [facility] [address] [facility] [id number] [place] [address] 06 Feb, 2012 [facility] [address] [id number] [place] [address] Jan, [facility] [address] [id number] [place] [address] Jan, [facility] [address] [id number] [place] [address] Jan, [facility] [address] [facility] [id number] [place] [address] Jan, [facility] [address] [id number] [place] [address] Jan, [facility] [address] [id number] [place] [address] Dec, [facility] [address] [id number] [place] [address] Dec, [facility] [address] [id number] [place] [address] Nov, [facility] [address] [id number] [place] [address] Nov, [facility] [address] [id number] [place] [address] Nov, [facility] [address] [id number] [place] [address] October, [facility] [address] [id number] [place] [address] October, [facility] [address] [id number] [place] [address] October, [facility] [address] [id number] [place] [address] October, [facility] [address] [id number] [place] [address] October, [facility] [address] [id number] [place] [address] October, [facility] [address] [id number] [place] [address] October, [facility] [address] [id number] [place] [address] Sep, [facility] [address] [id number] [place] [address] Sep, [facility] [address] [id number] [place] [address] Sep, [facility] [address] [id number] [place] [address] 25 Sep, 2011 [facility] [address] [id number] [place] [address] 24 Sep, 2011 [facility] [address] [id number] [place] [address] 19 Sep, 2011 [facility] [address] [id number] [place] [address] 17 Sep, 2011 [facility] [address] [id number] [place] [address] 16 Sep, 2011 [facility] [address] [id number] [place] [address] 16 Sep, 2011 [facility] [address] [id number] [place] [address] 14 Sep, 2011 [facility] [address] [id number] [place] [address] 13 Sep, 2011 [facility] [address] [id number] [place] [address] 10 Sep, 2011 [facility] [address] [id number] [place] [address] 09 Sep, 2011 [facility] [address] [facility] [id number] [place] [address] 27 Aug, 2011 [facility] [address] [id number] [place] [address] Aug, [facility] [address] [id number] [place] [address] 08 Aug, 2011 [facility] [address] [id number] [place] [address] 06 Aug, 2011 [facility] [address] [id number] [place] [address] 28 Jul, 2011 [facility] [address] [id number] [place] [address] Jul, [facility] [address] [id number] [place] [address] 16 Jul, 2011 [facility] [address] [id number] [place] [address] 15 Jul, 2011 [facility] [address] [id number] [place] [address] 14 Jul, 2011 [facility] [address] [id number] [place] [address] 10 Jul, 2011 [facility] [address] [id number] [place] [address] Jun, [facility] [address] [id number] [place] [address] Jun, [facility] [address] [id number] [place] [address] Jun, [facility] [id number] [place] [address] Jun, [facility] [id number] [place] [address] Jun, [facility] [address] [id number] [place] [address] May, [facility] [address] [id number] [place] [address] May, [facility] [address] [id number] [place] [address] May, [facility] [address] [id number] [place] [address] 14 May, 2011 [facility] [address] [id number] [place] [address] 12 May, 2011 [facility] [id number] [place] [address] 07 May, 2011 [facility] [address] [id number] [place] [address] 05 May, 2011 [facility] [id number] [place] [address] Apr, [facility] [address] [id number] [place] [address] Apr, [facility] [address] [id number] [place] [address] Apr, [facility] [address] [id number] [place] [address] Apr, [facility] [address] [id number] [place] [address] Apr, [facility] [address] [id number] [place] [address] Apr, [facility] [address] [id number] [place] [address] Mar, [facility] [address] [id number] [place] [address] Mar, [facility] [address] [id number] [place] [address] Mar, [facility] [address] [id number] [place] [address] Mar, [facility] [address] [id number] [place] [address] Jan, [facility] [address] [id number] [place] [address] Dec, [facility] [address] [id number] [place] [address] Dec, [facility] [address] [id number] [place] [address] October, [facility] [address] [id number] [place] [address] Sep, [facility] [address] [id number] [place] [address] 14 Sep, 2010 [facility] [address] [id number] [place] [address] Jul, [facility] [address] [id number] [place] [address] 16 Jul, 2010 [facility] [address] [id number] [place] [address] May, [facility] [address] [id number] [place] [address] May, [facility] [address] [id number] [place] [address] May, [facility] [address] [id number] [place] [address] May, [facility] [address] [id number] [place] [address] Apr, [facility] [address] [id number] [place] [address] Apr, [facility] [address] [id number] [place] [address] Apr, [facility] [address] [id number] [place] [address] Apr, [facility] [address] [id number] [place] [address] Apr, [facility] [address] [id number] [place] [address] Mar, [facility] [address] [id number] [place] [address] 14 Mar, 2010 [facility] [address] [id number] [place] [address] 13 Mar, 2010 [facility] [address] [id number] [place] [address] Mar, [facility] [address] [id number] [place] [address] Jan, [facility] [address] [id number] [place] [address] 15 Dec, 2009 [facility] [address] [id number] [place] [address] 10 Sep, 2009 [facility] [id number] [place] [address] May, [facility] [id number] [place] [address] May, [facility] [address] [address] May, [facility] [address] [address] Apr, [facility] [address] [address] Apr, [facility] [address] [address] Apr, [facility] [address] [address] Apr, [facility] [address] [address] Apr, [facility] [address] [address] Mar, [facility] [address] [address] Mar, [facility] [address] [address] Jul, IMMUNIZATIONS No Known Immunizations SOCIAL HISTORY [...] VC 10/2018 Hospitalization History Cellulitis-[facility]ia [facility]- Abd pain 03/07/2017 [facility] History [facility]- Abd pain 03/14/2017 [facility] History [facility]- No bowel movement, rash 04/13/2017 [facility] History [facility]- Abd pain r/ t kidney surgery on 04/10/17 04/17/2017 [facility]ization History [facility]- Abd pain r/ t kidney surgery on 04/10/17 04/18/2017 [facility]ization History [facility]- Lower abd pain 04/17 [facility]ization History [facility]- Cannot urinate 05/17 Hospitalization History [facility]- Pancreatitis Sx Hospitalization History [facility]- Stomach pain 2017 Hospitalization History [facility]- Left side pain 07/19 Hospitalization History [facility]- Incision site infec tion 08/30/2017 Hospitalization History [facility]- Post Op Serom a/Hematoma Left Abdomen. Discharged 09/04/17- Dr Daniel 09/02/2017 [facility]ization History [facility]- Right shoulder and back pain 10/22/2017 Hospitalization History [facility]- Shoulder/Back pain 11/11/2017 [facility]ization History [facility]- Right shoulder blad e pain 12/04/2017 Hospitalization History [facility]- C-Diff 12/13/2017 Hospitalization History C diff et MRSA 12/27/2017 Hospitalization History [facility] Bowel Obstruction 10/2018 Hospitalization History [facility]- Abdominal pain and nausea 01/08/2019
[2019-10-17] MEDS ORDERED: NS IV 1000 ML 1,000 ML IV SCH (05:27)
--- OUTSIDE RECORDS SUMMARY | 2019-10-17 05:29 | XMS REPORT ---
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 [address] [facility] [id number] [address] [place] [address] 11 Jun, 2015 Chronic pancreatitis, unspec ified pancreatitis type K86.1 ; Hirsuties L68.0 ; Morbid (severe) obesity due to excess calories E66.01 ; Chronic pancreatitis K86.1 and Asthma J45.909 [place] [address] [place] [id number] [place] [address] 14 May, 2015 [place] [address] [place] [id number] [place] [address] 09 May, 2015 Hyperlipidemia, mixed E78.2 and Muscle spasm of back M62.830 [place] [address] [place] [id number] [place] [address] 30 Apr, 2015 [place] [address] [place] [id number] [place] [address] 16 Apr, 2015 Torticollis M43.6 [place] [address] [place] [id number] [place] [address] 09 Apr, 2015 Right-sided thoracic back pa in M54.6 [facility] [address] [place] [id number] [place] [address] 15 Mar, 2015 Rash R21 [place] [address] [place] [id number] [place] [address] Mar, [facility] [address] [id number] [address] [place] [address] Jan, [facility] [address] [facility] [id number] [address] [place] [address] Dec, [facility] [address] [facility] [id number] [address] [place] [address] Dec, Urinary frequency 788.41 and Nocturia more than twice per night 788.43 [facility] [address] [id number] [address] [place] [address] Nov, [facility] [address] [id number] [address] [place] [address] Nov, [facility] [address] [facility] [id number] [address] [place] [address] Nov, Abdominal pain 789.00 [facility] [address] [facility] [id number] [address] [place] [address] October, TDAP DX V06.1 [facility] [address] [facility] [id number] [address] [place] [address] October, [facility] [address] [facility] [id number] [address] [place] [address] October, Disturbance of skin sensatio n 782.0 ; Wrist pain, right 719.43 ; Hyperlipidemia 272.4 and Skin lesion of face 709.9 [facility] [address] [facility] [id number] [address] [place] [address] Sep, [facility] [address] [facility] [id number] [address] [place] [address] Sep, [facility] [address] [facility] [id number] [address] [place] [address] Aug, [facility] [address] [facility] [id number] [address] [place] [address] Aug, [facility] [address] [id number] [facility] [place] [address] Aug, [facility] [address] [id number] [address] [place] [address], [place] [address] 23 Aug, 2014 [facility] [address] [id number] [address] [place] [address], [place] [address] 16 Aug, 2014 [facility] [address] [id number] [address] [place] [address], [place] [address] 16 Aug, 2014 [facility] [address] [id number] [address] [place] [address], [place] [address] Aug, [facility] [address] [id number] [address] [place] [address], [place] [address] 14 Aug, 2014 [facility] [address] [id number] [address] [place] [address], [place] [address] Aug, [facility] [address] [id number] [address] [place] [address], [place] [address] Aug, [facility] [address] [id number] [address] [place] [address], [place] [address] Aug, [facility] [address] [id number] [address] [place] [address], [place] [address] Aug, [facility] [address] [id number] [address] [place] [address], [place] [address] Aug, [facility] [address] [id number] [address] [place] [address], [place] [address] Aug, [facility] [address] [id number] [address] [place] [address], [place] [address] Jul, [facility] [address] [id number] [address] [place] [address], [place] [address] Jul, [facility] [address] [id number] [address] [place] [address], [place] [address] Jul, [facility] [address] [id number] [address] [place] [address] Jul, [facility] [address] [id number] [address] [place] [address], [place] [address] Jul, [facility] [address] [id number] [address] [place] [address], [place] [address] Jul, [facility] [address] [id number] [address] [place] [address], [place] [address] Jun, [facility] [address] [id number] [address] [place] [address], [place] [address] Jun, [facility] [address] [id number] [address] [place] [address], [place] [address] Jun, [facility] [address] [id number] [address] [place] [address], [place] [address] Jun, [facility] [address] [id number] [address] [place] [address], [place] [address] Jun, [facility] [address] [id number] [address] [place] [address], [place] [address] Jun, [facility] [address] [id number] [address] [place] [address], [place] [address] Jun, [facility] [address] [id number] [address] [place] [address], [place] [address] Jun, [facility] [address] [id number] [address] [place] [address], [place] [address] May, [facility] [address] [id number] [address] [place] [address] May, [facility] [address] [id number] [address] [place] [address], [place] [address] 18 May, 2014 [facility] [address] [id number] [address] [place] [address], [place] [address] 18 May, 2014 [facility] [address] [id number] [address] [place] [address] 15 May, 2014 [facility] [address] [id number] [address] [place] [address], [place] [address] May, [facility] [address] [id number] [address] [place] [address], [place] [address] May, [facility] [address] [id number] [address] [place] [address], [place] [address] May, [facility] [address] [id number] [address] [place] [address], [place] [address] May, [facility] [address] [id number] [address] [place] [address], [place] [address] May, [facility] [address] [id number] [address] [place] [address], [place] [address] May, [facility] [address] [id number] [address] [place] [address], [place] [address] May, [facility] [address] [id number] [address] [place] [address], [place] [address] Apr, [facility] [address] [id number] [address] [place] [address], [place] [address] Apr, [facility] [address] [id number] [address] [place] [address], [place] [address] Apr, [facility] [address] [id number] [address] [place] [address], [place] [address] Apr, [facility] [address] [id number] [address] [place] [address], [place] [address] Apr, [facility] [address] [id number] [address] [place] [address], [place] [address] Apr, [facility] [address] [id number] [address] [place] [address], [place] [address] Apr, [facility] [address] [id number] [address] [place] [address], [place] [address] Apr, [facility] [address] [id number] [address] [place] [address], [place] [address] Apr, [facility] [address] [id number] [address] [place] [address], [place] [address] Apr, [facility] [address] [id number] [address] [place] [address], [place] [address] Apr, [facility] [address] [id number] [address] [place] [address], [place] [address] Apr, [facility] [address] [id number] [address] [place] [address], [place] [address] Mar, [facility] [address] [id number] [address] [place] [address], [place] [address] Mar, [facility] [address] [id number] [address] [place] [address], [place] [address] Mar, [facility] [address] [id number] [address] [place] [address], [place] [address] Mar, [facility] [address] [id number] [address] [place] [address], [place] [address] 10 Feb, 2014 [facility] [address] [id number] [address] [place] [address], [place] [address] 10 Feb, 2014 [facility] [address] [id number] [address] [place] [address], [place] [address] 05 Feb, 2014 [facility] [address] [id number] [address] [place] [address], [place] [address] 05 Feb, 2013 [facility] [address] [id number] [address] [place] [address], [place] [address] 05 Feb, 2013 [facility] [address] [id number] [address] [place] [address], [place] [address] Feb, [facility] [address] [id number] [address] [place] [address], [place] [address] Jan, [facility] [address] [id number] [address] [place] [address], [place] [address] Jan, [facility] [address] [id number] [facility] [place] [address] Jan, [facility] [address] [id number] [address] [place] [address], [place] [address] Jan, [facility] [address] [id number] [facility] [place] [address] Jan, [facility] [address] [id number] [address] [place] [address], [place] [address] Jan, [facility] [address] [id number] [address] [place] [address], [place] [address] Jan, [facility] [address] [id number] [address] [place] [address], [place] [address] Jan, [facility] [address] [id number] [address] [place] [address], [place] [address] Jan, [facility] [address] [id number] [address] [place] [address], [place] [address] Jan, [facility] [address] [id number] [address] [place] [address], [place] [address] Jan, [facility] [address] [id number] [address] [place] [address], [place] [address] Jan, [facility] [address] [id number] [address] [place] [address], [place] [address] Jan, [facility] [address] [id number] [address] [place] [address], [place] [address] Jan, [facility] [address] [id number] [address] [place] [address], [place] [address] Dec, [facility] [address] [id number] [address] [place] [address], [place] [address] Dec, [facility] [address] [id number] [address] [place] [address], [place] [address] Dec, [facility] [address] [id number] [address] [place] [address], [place] [address] Dec, [facility] [address] [id number] [address] [place] [address], [place] [address] Nov, [facility] [address] [id number] [address] [place] [address], [place] [address] Nov, [facility] [address] [id number] [address] [place] [address], [place] [address] Nov, [facility] [address] [id number] [address] [place] [address], [place] [address] Nov, [facility] [address] [id number] [address] [place] [address], [place] [address] Nov, [facility] [address] [id number] [address] [place] [address], [place] [address] October, [facility] [address] [id number] [address] [place] [address], [place] [address] October, [facility] [address] [id number] [address] [place] [address], [place] [address] October, [facility] [address] [id number] [address] [place] [address], [place] [address] October, [facility] [address] [id number] [address] [place] [address], [place] [address] October, [facility] [address] [id number] [address] [place] [address], [place] [address] October, [facility] [address] [id number] [address] [place] [address], [place] [address] October, [facility] [address] [id number] [address] [place] [address], [place] [address] October, [facility] [address] [id number] [address] [place] [address], [place] [address] October, [facility] [facility] [address] [id number] [address] [place] [address], [place] [address] October, [facility] [address] [id number] [address] [place] [address], [place] [address] October, [facility] [address] [id number] [address] [place] [address], [place] [address] October, [facility] [address] [id number] [address] [place] [address], [place] [address] October, [facility] [address] [id number] [address] [place] [address], [place] [address] October, [facility] [address] [id number] [address] [place] [address], [place] [address] Sep, [facility] [address] [id number] [address] [place] [address], [place] [address] Sep, [facility] [address] [id number] [address] [place] [address], [place] [address] Sep, [facility] [address] [id number] [address] [place] [address], [place] [address] Sep, [facility] [address] [id number] [address] [place] [address], [place] [address] Sep, [facility] [address] [id number] [address] [place] [address], [place] [address] Sep, [facility] [address] [id number] [address] [place] [address], [place] [address] Sep, [facility] [address] [id number] [address] [place] [address], [place] [address] Sep, [facility] [address] [id number] [address] [place] [address], [place] [address] Sep, [facility] [address] [id number] [address] [place] [address], [place] [address] Sep, [facility] [address] [id number] [address] [place] [address], [place] [address] Sep, [facility] [address] [id number] [address] [place] [address], [place] [address] Sep, [facility] [address] [id number] [address] [place] [address], [place] [address] Sep, [facility] [address] [id number] [address] [place] [address], [place] [address] Sep, [facility] [address] [id number] [address] [place] [address], [place] [address] Sep, [facility] [address] [id number] [address] [place] [address], [place] [address] Aug, [facility] [address] [id number] [address] [place] [address], [place] [address] Aug, [facility] [address] [id number] [address] [place] [address], [place] [address] Aug, [facility] [address] [id number] [address] [place] [address], [place] [address] Aug, [facility] [address] [id number] [address] [place] [address], [place] [address] Jul, [facility] [address] [id number] [address] [place] [address], [place] [address] Jul, [facility] [address] [id number] [address] [place] [address], [place] [address] Jul, [facility] [address] [id number] [address] [place] [address], [place] [address] Jul, [facility] [address] [id number] [address] [place] [address], [place] [address] Jun, [facility] [address] [id number] [address] [place] [address], [place] [address] Jun, [facility] [address] [id number] [address] [place] [address], [place] [address] Jun, [facility] [address] [id number] [address] [place] [address], [place] [address] Jun, [facility] [address] [id number] [address] [place] [address], [place] [address] 10 Jun, 2013 [facility] [address] [id number] [address] [place] [address], [place] [address] 10 Jun, 2013 [facility] [address] [id number] [address] [place] [address], [place] [address] 08 Jun, 2013 [facility] [address] [id number] [address] [place] [address], [place] [address] Jun, [facility] [address] [id number] [address] [place] [address], [place] [address] 20 May, 2013 [facility] [address] [id number] [address] [place] [address], [place] [address] 20 May, 2013 [facility] [address] [id number] [address] [place] [address], [place] [address] 18 May, 2013 [facility] [address] [id number] [address] [place] [address], [place] [address] 18 May, 2013 [facility] [address] [id number] [address] [place] [address], [place] [address] 17 May, 2013 [facility] [address] [id number] [address] [place] [address], [place] [id number] 17 May, 2013 [facility] [address] [id number] [address] [place] [address], [place] [address] 17 May, 2013 [facility] [address] [id number] [address] [place] [address], [place] [address] 17 May, 2013 [facility] [address] [id number] [address] [place] [address], [place] [address] 16 May, 2013 [facility] [address] [id number] [address] [place] [address], [place] [address] 16 May, 2013 [facility] [address] [id number] [address] [place] [address], [place] [address] 14 May, 2013 [facility] [address] [id number] [address] [place] [address], [place] [address] 14 May, 2013 [facility] [address] [id number] [address] [place] [address], [place] [address] May, [facility] [address] [id number] [address] [place] [address], [place] [address] May, [facility] [address] [id number] [address] [place] [address], [place] [address] May, [facility] [address] [id number] [address] [place] [address], [place] [address] May, [facility] [address] [id number] [address] [place] [address], [place] [address] May, [facility] [address] [id number] [address] [place] [address], [place] [address] May, [facility] [address] [id number] [address] [place] [address], [place] [address] Apr, [facility] [address] [id number] [address] [place] [address], [place] [address] Apr, [facility] [address] [id number] [address] [place] [address], [place] [address] Apr, [facility] [address] [id number] [address] [place] [address], [place] [address] Apr, [facility] [address] [id number] [address] [place] [address], [place] [address] Aug, [facility] [address] [id number] [address] [place] [address], [place] [address] Aug, [facility] [address] [id number] [address] [place] [address], [place] [address] Aug, [facility] [address] [id number] [address] [place] [address], [place] [address] 05 Aug, 2012 [facility] [address] [id number] [address] [place] [address], [place] [address] 04 Jul, 2012 [facility] [address] [id number] [address] [place] [address], [place] [address] Jun, [facility] [address] [id number] [address] [place] [address], [place] [address] Jun, [facility] [address] [id number] [address] [place] [address], [place] [address] Jun, [facility] [address] [id number] [address] [place] [address], [place] [address] Jun, [facility] [address] [id number] [address] [place] [address], [place] [address] May, [facility] [address] [id number] [address] [place] [address], [place] [address] May, [facility] [address] [id number] [address] [place] [address], [place] [address] May, [facility] [address] [id number] [address] [place] [address], [place] [address] May, [facility] [address] [id number] [address] [place] [address], [place] [address] May, [facility] [address] [id number] [address] [place] [address], [place] [address] May, [facility] [address] [id number] [address] [place] [address], [place] [address] May, [facility] [address] [id number] [address] [place] [address], [place] [address] Apr, [facility] [address] [id number] [address] [place] [address], [place] [address] Apr, [facility] [address] [id number] [address] [place] [address], [place] [address] Apr, [facility] [address] [id number] [address] [place] [address], [place] [address] Apr, [facility] [address] [id number] [address] [place] [address], [place] [address] Apr, [facility] [address] [id number] [address] [place] [address] Apr, [facility] [address] [id number] [address] [place] [address] Apr, [facility] [address] [id number] [address] [place] [address] Mar, [facility] [address] [id number] [address] [place] [address] Mar, [facility] [address] [id number] [address] [place] [address] Mar, [facility] [address] [id number] [address] [place] [address], [place] [address] Mar, [facility] [address] [id number] [address] [place] [address] Mar, [facility] [address] [id number] [address] [place] [address] Mar, [facility] [address] [id number] [address] [place] [address] Mar, [facility] [address] [id number] [address] [place] [address] Mar, [facility] [address] [id number] [address] [place] [address] Mar, [facility] [address] [id number] [address] [place] [address] Mar, [facility] [address] [id number] [address] [place] [address] Mar, [facility] [address] [id number] [address] [place] [address] Mar, [facility] [address] [id number] [address] [place] [address] 06 Feb, 2012 [facility] [address] [id number] [address] [place] [address] Jan, [facility] [address] [id number] [address] [place] [address], [place] [address] 14 Jan, 2012 [facility] [address] [id number] [address] [place] [address], [place] [address] Jan, [facility] [address] [id number] [address] [place] [address], [place] [address] Jan, [facility] [address] [id number] [address] [place] [address], [place] [address] Jan, [facility] [address] [id number] [address] [place] [address], [place] [address] Dec, [facility] [address] [id number] [address] [place] [address], [place] [address] Dec, [facility] [address] [id number] [address] [place] [address], [place] [address] Nov, [facility] [address] [id number] [address] [place] [address], [place] [address] Nov, [facility] [address] [id number] [address] [place] [address], [place] [address] Nov, [facility] [address] [id number] [address] [place] [address], [place] [address] October, [facility] [address] [id number] [address] [place] [address], [place] [address] October, [facility] [address] [id number] [address] [place] [address], [place] [address] October, [facility] [address] [id number] [address] [place] [address], [place] [address] October, [facility] [address] [id number] [address] [place] [address], [place] [address] October, [facility] [address] [id number] [address] [place] [address], [place] [address] October, [facility] [address] [id number] [address] [place] [address], [place] [address] October, [facility] [address] [id number] [address] [place] [address], [place] [address] Sep, [facility] [address] [id number] [address] [place] [address], [place] [address] Sep, [facility] [address] [id number] [address] [place] [address], [place] [address] Sep, [facility] [address] [id number] [address] [place] [address], [place] [address] 25 Sep, 2011 [facility] [address] [id number] [address] [place] [address], [place] [address] 24 Sep, 2011 [facility] [address] [id number] [address] [place] [address], [place] [address] 19 Sep, 2011 [facility] [address] [id number] [address] [place] [address], [place] [address] 17 Sep, 2011 [facility] [address] [id number] [address] [place] [address], [place] [address] 16 Sep, 2011 [facility] [address] [id number] [address] [place] [address], [place] [address] 16 Sep, 2011 [facility] [address] [id number] [address] [place] [address], [place] [address] 14 Sep, 2011 [facility] [address] [id number] [address] [place] [address], [place] [address] 13 Sep, 2011 [facility] [address] [id number] [address] [place] [address], [place] [address] 10 Sep, 2011 [facility] [address] [id number] [address] [place] [address], [place] [address] 09 Sep, 2011 [facility] [address] [id number] [address] [place] [address], [place] [address] 27 Aug, 2011 [facility] [address] [id number] [address] [place] [address], [place] [address] 12 Aug, 2011 [facility] [address] [id number] [address] [place] [address], [place] [address] 08 Aug, 2011 [facility] [address] [id number] [address] [place] [address], [place] [address] 06 Aug, 2011 [facility] [address] [id number] [address] [place] [address], [place] [address] 28 Jul, 2011 [facility] [address] [id number] [address] [place] [address], [place] [address] 22 Jul, 2011 [facility] [address] [id number] [address] [place] [address], [place] [address] 16 Jul, 2011 [facility] [address] [id number] [address] [place] [address], [place] [address] 15 Jul, 2011 [facility] [address] [id number] [address] [place] [address], [place] [address] 14 Jul, 2011 [facility] [address] [id number] [address] [place] [address], [place] [address] 10 Jul, 2011 [facility] [address] [id number] [address] [place] [address], [place] [address] Jun, [facility] [address] [id number] [address] [place] [address], [place] [address] Jun, [facility] [address] [id number] [address] [place] [address], [place] [address] Jun, [facility] [address] [id number] [address] [place] [address], [place] [address] Jun, [facility] [address] [id number] [address] [place] [address], [place] [address] Jun, [facility] [address] [id number] [address] [place] [address], [place] [address] May, [facility] [address] [id number] [address] [place] [address], [place] [address] May, [facility] [address] [id number] [address] [place] [address], [place] [address] May, [facility] [address] [id number] [address] [place] [address], [place] [address] 14 May, 2011 [facility] [address] [id number] [address] [place] [address], [place] [address] May, [facility] [address] [id number] [address] [place] [address], [place] [address] 07 May, 2011 [facility] [address] [id number] [address] [place] [address], [place] [address] 05 May, 2011 [facility] [address] [id number] [address] [place] [address], [place] [address] Apr, [facility] [address] [id number] [address] [place] [address], [place] [address] 15 Apr, 2011 [facility] [address] [id number] [address] [place] [address], [place] [address] Apr, [facility] [address] [id number] [address] [place] [address] Apr, [facility] [address] [id number] [address] [place] [address], [place] [address] Apr, [facility] [address] [id number] [address] [place] [address] Apr, [facility] [address] [id number] [address] [place] [address] Mar, [facility] [address] [id number] [address] [place] [address] Mar, [facility] [address] [id number] [address] [place] [address] Mar, [facility] [address] [id number] [address] [place] [address] Mar, [facility] [address] [id number] [address] [place] [address] Jan, [facility] [address] [id number] [address] [place] [id number] 19 Dec, 2010 [facility] [address] [id number] [address] [place] [address], [place] [address] 13 Dec, 2010 [facility] [address] [id number] [address] [place] [address], [place] [address] October, [facility] [address] [id number] [address] [place] [address], [place] [address] 20 Sep, 2010 [facility] [address] [id number] [address] [place] [address], [place] [address] 14 Sep, 2010 [facility] [address] [id number] [address] [place] [address], [place] [address] 17 Jul, 2010 [facility] [address] [id number] [address] [place] [address], [place] [address] 16 Jul, 2010 [facility] [address] [id number] [address] [place] [address], [place] [address] 31 May, 2010 [facility] [address] [id number] [address] [place] [address], [place] [address] May, [facility] [address] [id number] [address] [place] [address], [place] [address] 08 May, 2010 [facility] [address] [id number] [address] [place] [address], [place] [address] May, [facility] [address] [id number] [address] [place] [address], [place] [address] Apr, [facility] [address] [id number] [address] [place] [address], [place] [address] Apr, [facility] [address] [id number] [address] [place] [address], [place] [address] Apr, [facility] [address] [id number] [address] [place] [address], [place] [address] Apr, [facility] [address] [id number] [address] [place] [address], [place] [address] Apr, [facility] [address] [id number] [address] [place] [address], [place] [address] 21 Mar, 2010 [facility] [address] [id number] [address] [place] [address], [place] [address] 14 Mar, 2010 [facility] [address] [id number] [address] [place] [address], [place] [address] 13 Mar, 2010 [facility] [address] [id number] [address] [place] [address], [place] [address] 12 Mar, 2010 [facility] [address] [id number] [address] [place] [address], [place] [address] 20 Jan, 2010 [facility] [address] [id number] [address] [place] [address], [place] [address] 15 Dec, 2009 [facility] [address] [id number] [address] [place] [address], [place] [address] 10 Sep, 2009 [facility] [address] [id number] [address] [place] [address], [place] [address] May, [facility] [address] [id number] [address] [place] [address], [place] [address] May, [facility] [address] [id number] [address] [place] [address], [place] [address] May, [facility] [address] [id number] [address] [place] [address], [place] [address] 17 Apr, 2009 [facility] [address] [id number] [address] [place] [address], [place] [address] Apr, [facility] [address] [id number] [address] [place] [address], [place] [address] Apr, [facility] [address] [id number] [address] [place] [address], [place] [address] Apr, [facility] [address] [id number] [address] [place] [address], [place] [address] 09 Apr, 2009 [facility] [address] [id number] [address] [place] [address], [place] [address] Mar, [facility] [address] [facility] [id number] [address] [place] [address] Mar, [facility] [address] [facility] [id number] [address] [place] [address] Jul, IMMUNIZATIONS No Known Immunizations SOCIAL HISTORY Never Assessed REASON FOR VISIT PLAN OF CARE VITAL SIGNS Height 62 in 2014-07-13 Weight 245.5 lbs 2014-07-13 Temperature 97.7 degrees Fahrenheit 2014-07-13 Heart Rate 76 bpm 2014-07-13 Respiratory Rate 18 2014-07-13 Blood pressure systolic 120 mmHg 2014-07-13 Blood pressure diastolic 70 mmHg 2014-07-13 MEDICATIONS No Known Medications RESULTS No Results PROCEDURES Procedure Date Ordered Result Body Site URINALYSIS, AUTO, W/O SCOPE Jul 13, 2014 EXC TR-EXT B9 GAIL 0.5 < CM Jul 13, 2014 INSTRUCTIONS MEDICATIONS ADMINISTERED No Known Medications [...] Cellulitis-[facility] Hospitalization [facility]- Abd pain 03/07/2017 Hospitalization History [facility]- Abd pain 03/14/2017 Hospitalization History [facility]- No bowel movement, rash 04/13/2017 Hospitalization History [facility]- Abd pain r/ t kidney surgery on 04/10/17 04/17/2017 Hospitalization [facility]- Abd pain r/ t kidney surgery on 04/10/17 04/18/2017 Hospitalization History [facility]- Lower abd pain 04/17 Hospitalization [facility]- Cannot urinate 05/17 Hospitalization [facility]- Pancreatitis Sx [facility]- Stomach pain 2017 Hospitalization [facility]- Left side pain 07/19 Hospitalization [facility]- Incision site infec tion 08/30/2017 Hospitalization History [facility]- Post Op Serom a/Hematoma Left Abdomen. Discharged 09/04/17- Dr Daniel 09/02/2017 Hospitalization History [facility]- Right shoulder and back pain 10/22/2017 Hospitalization [facility]- Shoulder/Back pain 11/11/2017 Hospitalization [facility]- Right shoulder blad e pain 12/04/2017 Hospitalization History [facility]- C-Diff 12/13/2017 Hospitalization History C diff et MRSA 12/27/[address] [facility] Bowel Obstruction 10/2018 Hospitalization [facility]- Abdominal pain and nausea 01/08/2019
--- OUTSIDE RECORDS SUMMARY | 2019-10-17 05:29 | XMS REPORT ---
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 [facility] [id number] [address] [place] [address] 11 Jun, 2015 Chronic pancreatitis, unspec ified pancreatitis type K86.1 ; Hirsuties L68.0 ; Morbid (severe) obesity due to excess calories E66.01 ; Chronic pancreatitis K86.1 and Asthma J45.909 [place] [address] [facility] [id number] [address] [place] [address] 14 May, 2015 [place] [address] [place] [id number] [address] [place] [id number] 09 May, 2015 Hyperlipidemia, mixed E78.2 and Muscle spasm of back M62.830 [place] [address] [facility] [id number] [address] [place] [address] 30 Apr, 2015 [place] [address] [facility] [id number] [address] [place] [address] 16 Apr, 2015 Torticollis M43.6 [place] [address] [facility] [id number] [address] [place] [address] 09 Apr, 2015 Right-sided thoracic back pa in M54.6 [place] [address] [facility] [id number] [address] [place] [phone] 15 Mar, 2015 Rash R21 [facility] [address] [facility] [id number] [address] [place] [address] 06 Mar, 2015 [place] [address] [facility] [id number] [address] [place] [address] Jan, [facility] [address] [facility] [id number] [address] [place] [address] Dec, [facility] [address] [facility] [id number] [address] [place] [address] Dec, Urinary frequency 788.41 and Nocturia more than twice per night 788.43 [facility] [address] [facility] [id number] [address] [place] [phone] Nov, [facility] [address] [facility] [id number] [address] [place] [address] Nov, [facility] [address] [facility] [id number] [address] [place] [address] Nov, Abdominal pain 789.00 [facility] [address] [place] [id number] [address] [place] [address] October, TDAP DX V06.1 [facility] [address] [place] [id number] [address] [place] [address] October, [facility] [address] [place] [place] [id number] [address] [place] [phone] October, Disturbance of skin sensatio n 782.0 ; Wrist pain, right 719.43 ; Hyperlipidemia 272.4 and Skin lesion of face 709.9 [facility] [address] [place] [place] [id number] [address] [place] [phone] Sep, [facility] [address] [facility] [id number] [address] [place] [address] Sep, [facility] [address] [place] [id number] [address] [place] [phone] Aug, [facility] [address] [place] [id number] [address] [place] [phone] Aug, [facility] [address] [place] [id number] [address] [place] [phone] Aug, [facility] [address] [id number] [address] [place] [address], [place] [address] 23 Aug, 2014 [facility] [address] [id number] [address] [place] [address], [place] [address] 16 Aug, 2014 [facility] [address] [id number] [address] [place] [address], [place] [address] 16 Aug, 2014 [facility] [address] [id number] [address] [place] [address], [place] [address] 14 Aug, 2014 [facility] [address] [id number] [address] [place] [address], [place] [address] 14 Aug, 2014 [facility] [address] [id number] [address] [place] [address], [place] [address] 11 Aug, 2014 [facility] [address] [id number] [address] [place] [address], [place] [address] 11 Aug, 2014 [facility] [address] [id number] [address] [place] [address], [place] [address] 04 Aug, 2014 [facility] [address] [id number] [address] [place] [address], [place] [address] 04 Aug, 2014 [facility] [address] [id number] [address] [place] [address], [place] [address] 03 Aug, 2014 [facility] [address] [id number] [address] [place] [address], [place] [address] Aug, 2014 [facility] [address] [id number] [address] [place] [address], [place] [address] Jul, 2014 [facility] [address] [id number] [address] [place] [address], [place] [address] Jul, 2014 [facility] [address] [id number] [address] [place] [address], [place] [address] 13 Jul, 2014 [facility] [address] [id number] [address] [place] [address], [place] [address] Jul, 2014 [facility] [address] [id number] [address] [place] [phone] Jul, [facility] [address] [id number] [address] [place] [address], [place] [address] Jul, [facility] [address] [id number] [address] [place] [address] Jun, [facility] [address] [id number] [address] [place] [address], [place] [address] Jun, [facility] [address] [id number] [address] [place] [address], [place] [address] Jun, [facility] [address] [id number] [address] [place] [address], [place] [address] Jun, [facility] [address] [id number] [address] [place] [address], [place] [address] Jun, [facility] [address] [id number] [address] [place] [phone] Jun, [facility] [address] [id number] [address] [place] [address], [place] [address] Jun, [facility] [address] [id number] [address] [place] [address], [place] [address] Jun, [facility] [address] [id number] [address] [place] [address], [place] [address] May, [facility] [address] [id number] [address] [place] [address], [place] [address] May, [facility] [address] [id number] [address] [place] [phone] 18 May, 2014 [facility] [address] [id number] [address] [place] [address], [place] [address] 18 May, 2014 [facility] [address] [id number] [address] [place] [address], [place] [address] 15 May, 2014 [facility] [address] [id number] [address] [place] [address], [place] [address] 15 May, 2014 [facility] [address] [id number] [address] [place] [address], [place] [address] May, [facility] [address] [id number] [address] [place] [address], [place] [address] May, [facility] [address] [id number] [address] [place] [address], [place] [address] May, [facility] [address] [id number] [address] [place] [address], [place] [address] May, [facility] [address] [id number] [address] [place] [address], [place] [address] May, [facility] [address] [id number] [address] [place] [address], [place] [address] May, [facility] [address] [id number] [address] [place] [address], [place] [address] Apr, [facility] [address] [id number] [address] [place] [address], [place] [address] Apr, [facility] [address] [id number] [address] [place] [address], [place] [address] Apr, [facility] [address] [id number] [address] [place] [address], [place] [address] Apr, [facility] [address] [id number] [address] [place] [address], [place] [address] Apr, [facility] [address] [id number] [address] [place] [address], [place] [address] Apr, [facility] [address] [id number] [address] [place] [address], [place] [address] Apr, [facility] [address] [id number] [address] [place] [address], [place] [address] Apr, [facility] [address] [id number] [address] [place] [address], [place] [address] 13 Apr, 2014 [facility] [address] [id number] [address] [place] [address] [address] Apr, [facility] [address] [id number] [address] [place] [address], [place] [address] Apr, [facility] [address] [id number] [address] [place] [address], [place] [address] Apr, [facility] [address] [id number] [address] [place] [address], [place] [address] Mar, [facility] [address] [id number] [address] [place] [address], [place] [address] Mar, [facility] [address] [id number] [address] [place] [address], [place] [address] Mar, [facility] [address] [id number] [address] [place] [address], [place] [address] Mar, [facility] [address] [id number] [address] [place] [address], [place] [address] Feb, [facility] [address] [id number] [address] [place] [address], [place] [address] 10 Feb, 2013 [facility] [address] [id number] [address] [place] [address], [place] [address] 05 Feb, 2013 [facility] [address] [id number] [address] [place] [address], [place] [address] 05 Feb, 2013 [facility] [address] [id number] [address] [place] [address], [place] [address] Feb, 2013 [facility] [address] [id number] [address] [place] [address], [place] [address] Feb, 2013 [facility] [address] [id number] [address] [place] [address], [place] [address] Jan, [facility] [address] [id number] [address] [place] [address], [place] [address] Jan, [facility] [address] [id number] [address] [place] [address], [place] [address] Jan, [facility] [address] [id number] [facility] [place] [address] Jan, [facility] [address] [id number] [address] [place] [address], [place] [address] Jan, [facility] [address] [id number] [address] [place] [address], [place] [address] Jan, [facility] [address] [id number] [address] [place] [address], [place] [address] Jan, [facility] [address] [id number] [address] [place] [address], [place] [address] Jan, [facility] [address] [id number] [address] [place] [address], [place] [address] Jan, [facility] [address] [id number] [address] [place] [address], [place] [address] Jan, [facility] [address] [id number] [address] [place] [address], [place] [address] Jan, [facility] [address] [id number] [address] [place] [address], [place] [address] Jan, [facility] [address] [id number] [address] [place] [address], [place] [address] Jan, [facility] [address] [id number] [address] [place] [address], [place] [address] Jan, [facility] [address] [id number] [address] [place] [address], [place] [address] Dec, [facility] [address] [id number] [address] [place] [address], [place] [address] Dec, [facility] [address] [id number] [address] [place] [address], [place] [address] Dec, [facility] [address] [id number] [address] [place] [address], [place] [address] Dec, [facility] [address] [id number] [address] [place] [address], [place] [address] Nov, [facility] [address] [id number] [address] [place] [address], [place] [address] Nov, [facility] [address] [id number] [address] [place] [address], [place] [address] Nov, [facility] [address] [id number] [address] [place] [address], [place] [address] Nov, [facility] [address] [id number] [address] [place] [address], [place] [address] Nov, [facility] [address] [id number] [address] [place] [address], [place] [address] October, [facility] [address] [id number] [address] [place] [address], [place] [address], [facility] [address] [id number] [address] [place] [address], [place] [address] October, [facility] [address] [id number] [address] [place] [address], [place] [address] October, [facility] [address] [id number] [address] [place] [address], [place] [address], [facility] [address] [id number] [address] [place] [address], [place] [address] October, [facility] [address] [id number] [address] [place] [address], [place] [address] [address], [facility] [address] [id number] [address] [place] [address], [place] [address] October, [facility] [address] [id number] [address] [place] [address], [place] [address] October, [facility] [address] [id number] [address] [place] [address], [place] [address], [facility] [address] [id number] [address] [place] [address], [place] [address] October, [facility] [address] [id number] [address] [place] [address], [place] [address] October, [facility] [address] [id number] [facility] [place] [address] October, [facility] [address] [id number] [address] [place] [address], [place] [address] October, [facility] [address] [id number] [address] [place] [address], [place] [address] Sep, [facility] [address] [id number] [address] [place] [address], [place] [address] Sep, [facility] [address] [id number] [address] [place] [address], [place] [address] Sep, [facility] [address] [id number] [address] [place] [address], [place] [address] Sep, [facility] [address] [id number] [address] [place] [address], [place] [address] Sep, [facility] [address] [id number] [address] [place] [address], [place] [address] Sep, [facility] [address] [id number] [address] [place] [address], [place] [address] Sep, [facility] [address] [id number] [address] [place] [address], [place] [address] Sep, [facility] [address] [id number] [address] [place] [address], [place] [address] Sep, [facility] [address] [id number] [address] [place] [address], [place] [address] Sep, [facility] [address] [id number] [address] [place] [address], [place] [address] Sep, [facility] [address] [id number] [address] [place] [address], [place] [address] Sep, [facility] [address] [id number] [address] [place] [address], [place] [address] Sep, [facility] [address] [id number] [address] [place] [address], [place] [address] Sep, [facility] [address] [id number] [address] [place] [address], [place] [address] Sep, [facility] [address] [id number] [address] [place] [address], [place] [address] Aug, [facility] [address] [id number] [address] [place] [address], [place] [address] Aug, [facility] [address] [id number] [address] [place] [address], [place] [address] Aug, [facility] [address] [id number] [address] [place] [address], [place] [address] Aug, [facility] [address] [id number] [address] [place] [address], [place] [address] Jul, [facility] [address] [id number] [address] [place] [address], [place] [address] Jul, [facility] [address] [id number] [address] [place] [address], [place] [address] Jul, [facility] [address] [id number] [address] [place] [address], [place] [address] Jul, [facility] [address] [id number] [address] [place] [address], [place] [address] Jun, [facility] [address] [id number] [address] [place] [address], [place] [address] Jun, [facility] [address] [id number] [address] [place] [address], [place] [address] Jun, [facility] [address] [id number] [address] [place] [address], [place] [address] Jun, [facility] [address] [id number] [address] [place] [address], [place] [address] Jun, [facility] [address] [id number] [address] [place] [address] [address] Jun, [facility] [address] [id number] [address] [place] [address], [place] [address] 08 Jun, 2013 [facility] [address] [id number] [address] [place] [address], [place] [address] 08 Jun, 2013 [facility] [address] [id number] [address] [place] [address], [place] [address] 20 May, 2013 [facility] [address] [id number] [address] [place] [address], [place] [address] 20 May, 2013 [facility] [address] [id number] [address] [place] [address], [place] [address] 18 May, 2013 [facility] [address] [id number] [address] [place] [address], [place] [address] 18 May, 2013 [facility] [address] [id number] [address] [place] [address], [place] [address] 17 May, 2013 [facility] [address] [id number] [address] [place] [address], [place] [id number] 17 May, 2013 [facility] [address] [id number] [address] [place] [address], [place] [address] 17 May, 2013 [facility] [address] [id number] [address] [place] [address], [place] [address] 17 May, 2013 [facility] [address] [id number] [address] [place] [address], [place] [address] 16 May, 2013 [facility] [address] [id number] [address] [place] [address], [place] [address] 16 May, 2013 [facility] [address] [id number] [address] [place] [address], [place] [address] 14 May, 2013 [facility] [address] [id number] [address] [place] [address], [place] [address] 14 May, 2013 [facility] [address] [id number] [address] [place] [address], [place] [address] 13 May, 2013 [facility] [address] [id number] [address] [place] [address], [place] [address] 13 May, 2013 [facility] [address] [id number] [address] [place] [address], [place] [address] May, [facility] [address] [id number] [address] [place] [address], [place] [address] May, [facility] [address] [id number] [address] [place] [address], [place] [address] May, [facility] [address] [id number] [address] [place] [address], [place] [address] May, [facility] [address] [id number] [address] [place] [address], [place] [address] Apr, [facility] [address] [id number] [address] [place] [address], [place] [address] Apr, [facility] [address] [id number] [address] [place] [address], [place] [address] Apr, [facility] [address] [id number] [address] [place] [address], [place] [address] Apr, [facility] [address] [id number] [address] [place] [address], [place] [address] Aug, [facility] [address] [id number] [address] [place] [address], [place] [address] Aug, [facility] [address] [id number] [address] [place] [address], [place] [address] 06 Aug, 2012 [facility] [address] [id number] [address] [place] [address], [place] [address] 05 Aug, 2012 [facility] [address] [id number] [address] [place] [address], [place] [address] 04 Jul, 2012 [facility] [address] [id number] [address] [place] [address], [place] [address] Jun, [facility] [address] [id number] [address] [place] [address], [place] [address] Jun, [facility] [address] [id number] [address] [place] [address], [place] [address] Jun, [facility] [address] [id number] [address] [place] [address], [place] [address] Jun, [facility] [address] [id number] [address] [place] [address], [place] [address] May, [facility] [address] [id number] [address] [place] [address], [place] [address] May, [facility] [address] [id number] [address] [place] [address], [place] [address] May, [facility] [address] [id number] [address] [place] [address], [place] [address] May, [facility] [address] [id number] [address] [place] [address], [place] [address] May, [facility] [address] [id number] [address] [place] [address], [place] [address] May, [facility] [address] [id number] [address] [place] [address], [place] [address] May, [facility] [address] [id number] [address] [place] [address], [place] [address] Apr, [facility] [address] [id number] [address] [place] [address], [place] [address] Apr, [facility] [address] [id number] [address] [place] [address], [place] [address] Apr, [facility] [address] [id number] [address] [place] [address], [place] [address] Apr, [facility] [address] [id number] [address] [place] [address], [place] [address] Apr, [facility] [address] [id number] [address] [place] [address], [place] [address] Apr, [facility] [address] [id number] [address] [place] [address], [place] [address] Apr, [facility] [address] [id number] [address] [place] [address], [place] [address] Mar, [facility] [address] [id number] [address] [place] [address], [place] [address] Mar, [facility] [address] [id number] [address] [place] [address], [place] [address] Mar, [facility] [address] [id number] [address] [place] [address] Mar, [facility] [address] [id number] [address] [place] [address], [place] [address] Mar, [facility] [address] [id number] [address] [place] [address] Mar, [facility] [address] [id number] [address] [place] [address], [place] [address] Mar, [facility] [address] [id number] [address] [place] [address] Mar, [facility] [address] [id number] [address] [place] [address], [place] [address] 15 Mar, 2012 [facility] [address] [id number] [address] [place] [address] Mar, [facility] [address] [id number] [address] [place] [address] Mar, [facility] [address] [id number] [address] [place] [address] Mar, [facility] [address] [id number] [address] [place] [address], [place] [address] Feb, [facility] [address] [id number] [address] [place] [address] Jan, [facility] [address] [id number] [address] [place] [address], [place] [address] Jan, [facility] [address] [id number] [address] [place] [address], [place] [address] Jan, [facility] [address] [id number] [address] [place] [address], [place] [address] Jan, [facility] [address] [id number] [address] [place] [address], [place] [address] Jan, [facility] [address] [id number] [address] [place] [address], [place] [address] Dec, [facility] [address] [id number] [address] [place] [address], [place] [address] Dec, [facility] [address] [id number] [address] [place] [address], [place] [address] Nov, [facility] [address] [id number] [address] [place] [address], [place] [address] Nov, [facility] [address] [id number] [address] [place] [address], [place] [address] Nov, [facility] [address] [id number] [address] [place] [address], [place] [address] October, [facility] [address] [id number] [address] [place] [address], [place] [address] October, [facility] [address] [id number] [address] [place] [address], [place] [address] October, [facility] [address] [id number] [address] [place] [address], [place] [address] October, [facility] [address] [id number] [address] [place] [address], [place] [address] October, [facility] [address] [id number] [address] [place] [address], [place] [address] October, [facility] [address] [id number] [address] [place] [address], [place] [address] October, [facility] [address] [id number] [address] [place] [address], [place] [address] Sep, [facility] [address] [id number] [address] [place] [address], [place] [address] Sep, [facility] [address] [id number] [address] [place] [address], [place] [address] Sep, [facility] [address] [id number] [address] [place] [address], [place] [address] Sep, [facility] [address] [id number] [address] [place] [address], [place] [address] 24 Sep, 2011 [facility] [address] [id number] [address] [place] [address], [place] [address] 19 Sep, 2011 [facility] [address] [id number] [address] [place] [address], [place] [address] 17 Sep, 2011 [facility] [address] [id number] [address] [place] [address], [place] [address] 16 Sep, 2011 [facility] [address] [id number] [address] [place] [address], [place] [address] 16 Sep, 2011 [facility] [address] [id number] [address] [place] [address], [place] [address] 14 Sep, 2011 [facility] [address] [id number] [address] [place] [address], [place] [address] 13 Sep, 2011 [facility] [address] [id number] [address] [place] [address], [place] [address] 10 Sep, 2011 [facility] [address] [id number] [address] [place] [address], [place] [address] 09 Sep, 2011 [facility] [address] [id number] [address] [place] [address], [place] [address] 27 Aug, 2011 [facility] [address] [id number] [address] [place] [address], [place] [address] 12 Aug, 2011 [facility] [address] [id number] [address] [place] [address], [place] [address] 08 Aug, 2011 [facility] [address] [id number] [address] [place] [address], [place] [address] 06 Aug, 2011 [facility] [address] [id number] [address] [place] [address], [place] [address] 28 Jul, 2011 [facility] [address] [id number] [address] [place] [address], [place] [address] 22 Jul, 2011 [facility] [address] [id number] [address] [place] [address], [place] [address] 16 Jul, 2011 [facility] [address] [id number] [address] [place] [address], [place] [address] 15 Jul, 2011 [facility] [address] [id number] [address] [place] [address], [place] [address] 14 Jul, 2011 [facility] [address] [id number] [address] [place] [address], [place] [address] 10 Jul, 2011 [facility] [address] [id number] [address] [place] [address], [place] [address] 30 Jun, 2011 [facility] [address] [id number] [address] [place] [address], [place] [address] 05 Jun, 2011 [facility] [address] [id number] [address] [place] [address], [place] [address] Jun, [facility] [address] [id number] [address] [place] [address], [place] [address] 03 Jun, 2011 [facility] [address] [id number] [address] [place] [address], [place] [address] Jun, [facility] [address] [id number] [address] [place] [address], [place] [address] May, [facility] [address] [id number] [address] [place] [address], [place] [address] May, [facility] [address] [id number] [address] [place] [address], [place] [address] 14 May, [address] [facility] [address] [id number] [address] [place] [address], [place] [address] 14 May, 2011 [facility] [address] [id number] [address] [place] [address], [place] [address] 12 May, 2011 [facility] [address] [id number] [address] [place] [address], [place] [address] May, [facility] [address] [id number] [address] [place] [address], [place] [address] 05 May, 2011 [facility] [address] [id number] [address] [place] [address], [place] [address] Apr, [facility] [address] [id number] [address] [place] [address], [place] [address] Apr, [facility] [address] [id number] [address] [place] [address], [place] [address] Apr, [facility] [address] [id number] [address] [place] [address], [place] [address] Apr, [facility] [address] [id number] [address] [place] [address], [place] [address] Apr, [facility] [address] [id number] [address] [place] [address], [place] [address] Apr, [facility] [address] [id number] [address] [place] [phone] Mar, [facility] [address] [id number] [address] [place] [phone] Mar, [facility] [address] [id number] [address] [place] [phone] Mar, [facility] [address] [id number] [address] [place] [address], [place] [address] Mar, [facility] [address] [id number] [address] [place] [phone] Jan, [facility] [address] [id number] [address] [place] [id number] Dec, [facility] [address] [id number] [address] [place] [address] 13 Dec, 2010 [facility] [address] [id number] [address] [place] [address], [place] [address] October, [facility] [address] [id number] [address] [place] [address], [place] [address] 20 Sep, 2010 [facility] [address] [id number] [address] [place] [address], [place] [address] 14 Sep, 2010 [facility] [address] [id number] [address] [place] [address], [place] [address] 17 Jul, 2010 [facility] [address] [id number] [address] [place] [address], [place] [address] 16 Jul, 2010 [facility] [address] [id number] [address] [place] [address], [place] [address] 31 May, 2010 [facility] [address] [id number] [address] [place] [address], [place] [address] May, [facility] [address] [id number] [address] [place] [address], [place] [address] May, [facility] [address] [id number] [address] [place] [address], [place] [address] 06 May, 2010 [facility] [address] [id number] [address] [place] [address], [place] [address] Apr, [facility] [address] [id number] [address] [place] [address], [place] [address] Apr, [facility] [address] [id number] [address] [place] [address], [place] [address] Apr, [facility] [address] [id number] [address] [place] [address], [place] [address] Apr, [facility] [address] [id number] [address] [place] [address], [place] [address] Apr, [facility] [address] [id number] [address] [place] [address], [place] [address] Mar, [facility] [address] [id number] [address] [place] [address], [place] [address] 14 Mar, 2010 [facility] [address] [id number] [address] [place] [address], [place] [address] 13 Mar, 2010 [facility] [address] [id number] [address] [place] [address], [place] [address] 12 Mar, 2010 [facility] [address] [id number] [address] [place] [address], [place] [address] 20 Jan, 2010 [facility] [address] [id number] [address] [place] [address], [place] [address] 15 Dec, 2009 [facility] [address] [id number] [address] [place] [address], [place] [address] 10 Sep, 2009 [facility] [address] [id number] [address] [place] [address], [place] [address] 08 May, 2009 [facility] [address] [id number] [address] [place] [address], [place] [address] 06 May, 2009 [facility] [address] [id number] [address] [place] [address], [place] [address] 02 May, 2009 [facility] [address] [id number] [address] [place] [address], [place] [address] 17 Apr, 2009 [facility] [address] [id number] [address] [place] [address], [place] [address] 17 Apr, 2009 [facility] [address] [id number] [address] [place] [address], [place] [address] 10 Apr, 2009 [facility] [address] [id number] [address] [place] [address], [place] [address] 10 Apr, 2009 [facility] [address] [id number] [address] [place] [address], [place] [address] 09 Apr, 2009 [facility] [address] [id number] [address] [place] [address] 15 Mar, 2009 [facility] [address] [id number] [address] [place] [phone] Mar, [facility] [facility], [place], [facility] [address] [facility] [place] [place] [id number] [place] [address] Jul, IMMUNIZATIONS No Known Immunizations SOCIAL HISTORY [...] and replaced [facility] 10/2018 Hospitalization History Cellulitis-[facility] Hospital[facility]- Abd pain 03/07/2017 Hospital[facility]- Abd pain 03/14/2017 Hospital[facility]- No bowel movement, rash 04/13/2017 Hospitalization History [facility]- Abd pain r/ t kidney surgery on 04/10/17 04/17/2017 Hospitalization History [facility]- Abd pain r/ t kidney surgery on 04/10/17 04/18/2017 Hospitalization History [facility]- Lower abd pain 04/17 Hospitalization History [facility]- Cannot urinate 05/17 Hospitalization History [facility]- Pancreatitis Sx Hospitalization History [facility]- Stomach pain 2017 Hospitalization History [facility]- Left side pain 07/19 Hospitalization History [facility]- Incision site infec tion 08/30/2017 Hospitalization History [facility]- Post Op Serom a/Hematoma Left Abdomen. Discharged 09/04/17- Dr Daniel 09/02/2017 Hospitalization History [facility]- Right shoulder and back pain 10/22/2017 Hospitalization History [facility]- Shoulder/Back pain 11/11/2017 Hospitalization History [facility]- Right shoulder blad e pain 12/04/2017 Hospitalization History [facility]- C-Diff 12/13/2017 Hospitalization History C diff et MRSA 12/27/2017 Hospitalization History [facility] Bowel Obstruction 10/2018 Hospitalization History [facility]- Abdominal pain and nausea 01/08/2019
[2019-10-17] MEDS ORDERED: PROMETHAZINE INJ 25 MG/ML (PHENERGAN) AMP IVP ONE ×2 (05:30→08:00)
[2019-10-17] MEDS ORDERED: FAMOTIDINE 20MG/2ML IV (PEPCID) IVP ONE (05:30)
[2019-10-17 05:33] LABS: BASOPHILS % (AUTO) 0 % (0-10); EOSINOPHILS # (AUTO) 0.3 10^3/uL (0.0-0.3); EOSINOPHILS % (AUTO) 3 % (0-10); HEMATOCRIT 39 % (35-52); HEMOGLOBIN 12.5 G/DL (11.5-16.0); LYMPHOCYTES % (AUTO) 37 % (12-44); MEAN CORPUSCULAR HEMOGLOBIN 26 PG (25-34); MEAN CORPUSCULAR HGB CONC 32 G/DL (32-36); MEAN CORPUSCULAR VOLUME 82 FL (80-99); MEAN PLATELET VOLUME 9.5 FL (7.4-10.4); MONOCYTES # (AUTO) 0.4 X 10^3 (0.0-1.0); MONOCYTES % (AUTO) 5 % (0-12); NEUTROPHILS # (AUTO) 4.5 X 10^3 (1.8-7.8); NEUTROPHILS % (AUTO) 55 % (42-75); PLATELET COUNT 277 10^3/uL (130-400); RED CELL DISTRIBUTION WIDTH 15.7 % (10.0-14.5); WHITE BLOOD COUNT 8.1 10^3/uL (4.3-11.0)
[2019-10-17 05:35] LABS: BILIRUBIN,URINE NEGATIVE (NEGATIVE); CLARITY,URINE CLEAR; COLOR,URINE YELLOW; GLUCOSE, URINE (UA) NEGATIVE (NEGATIVE); KETONES,URINE NEGATIVE (NEGATIVE); LEUKOCYTE ESTERASE ,URINE NEGATIVE (NEGATIVE); NITRITE,URINE NEGATIVE (NEGATIVE); PH,URINE 6.5 (5-9); PROTEIN,URINE NEGATIVE (NEGATIVE)
[2019-10-17 05:42] LABS: BACTERIA,URINE TRACE /HPF
[2019-10-17 05:49] LABS: ALBUMIN 4.1 GM/DL (3.2-4.5); BILIRUBIN,TOTAL 0.2 MG/DL (0.1-1.0); CALCIUM 9.3 MG/DL (8.5-10.1); CREATININE SERUM 1.06 MG/DL (0.60-1.30); POTASSIUM 3.9 MMOL/L (3.6-5.0); TOTAL PROTEIN 7.6 GM/DL (6.4-8.2)
--- NOTE | 2019-10-17 05:51 | ED Abdominal Pain ---
General Chief Complaint: Abdominal/GI Problems Stated Complaint: VOMITING Nursing Triage Note: Patient states she has been experiencing abdominal pain since and was evaluated in the ER at that time. She states at approximately 0230 this morning she began vomiting. Sepsis Screen: No Definite Risk Source of Information: Patient, Old Records Exam Limitations: No Limitations History of Present Illness Date Seen by Provider: October 17, 2019 Time Seen by Provider: 05:07 Initial Comments This 34-year-old woman presents to the emergency room with complaints of incessant vomiting for the past 3 hours. She has chronic abdominal pain after hernia repair with mesh. She was seen in the ER October 14 for worsening symptoms related to these chronic problems. She had workup with labs. She was discha rged with an increase in pain management with a Percocet prescription. She developed vomiting around 02:30 this morning. She has had one bowel movement since October 14 which she thinks was normal. Although she has chronic problems with pain and nausea, she reports this vomiting reminds her of her prior bowel obstruction. She tried taking Zofran at home without benefit. Patient reports feeling bloated as if she has overeaten. Allergies and Home Medications Allergies Coded Allergies: fentanyl (Verified Allergy, Unknown, 10/16/18) meperidine (Verified Allergy, Unknown, 10/16/18) penicillin G (Verified Allergy, Unknown, 10/16/18) vancomycin (Unverified Adverse Reaction, Intermediate, severe itching, 10/16/18) Home Medications Estradiol 1 Mg Tablet, 1 MG PO HS, (Reported) Multivitamin 1 Each Tablet, 1 EACH PO DAILY, (Reported) Oxycodone HCl/Acetaminophen 1 Each Tablet, 1 TAB PO Q6H PRN for PAIN- BREAKTHROUGH Prescribed by: MAKAYLA HAWKINS on 10/15/191852 Ropinirole HCl 4 Mg Tablet, 4 MG PO HS, (Reported) Sertraline HCl 50 Mg Tablet, 50 MG PO HS, (Reported) Patient Home Medication List Home Medication List Reviewed: Yes Review of Systems Review of Systems Constitutional: no symptoms reported EENTM: No Symptoms Reported Respiratory: No Symptoms Reported Cardiovascular: No Symptoms Reported Gastrointestinal: See HPI Genitourinary: No Symptoms Reported Musculoskeletal: no symptoms reported Skin: no symptoms reported Psychiatric/Neurological: No Symptoms Reported Endocrine: No Symptoms Reported Hematologic/Lymphatic: No Symptoms Reported Past [id number]-Cirfjo-[id number] Hx Past Med/Social Hx: Reviewed and Corrections made Patient Social History Alcohol Use: Denies Use Recreational Drug Use: No Type Used: Cigarettes 2nd Hand Smoke Exposure: No Recent Foreign Travel: No Contact w/Someone Who Travel: No Recent Infectious Disease Expo: No Recent Hopitalizations: No Immunizations Up To Date Tetanus Booster (TDap): Less than 5yrs PED Vaccines UTD: No Date of Pneumonia Vaccine: May 17, 2012 Date of Influenza Vaccine: Jul 03, 2012 Seasonal Allergies Seasonal Allergies: Yes (MILD) Past Medical History Surgeries: Yes (KNEE SCOPES X5, HERNIA X2) Abdominal, Adenoidectomy, Appendectomy, Gallbladder, 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, Nephrectomy, Orthopedic, Tonsillectomy Respiratory: Yes Asthma Currently Using CPAP: No Currently Using BIPAP: No Cardiac: Yes Hypertension Neurological: Yes (RESTLESS LEG SYNDROME; CHRONIC DAILY HEADACHE COMPLAINTS) Headaches /Migraines 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: Yes (HX ENDOMETRIOSIS ) 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: 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 [employer] History: 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 Sexually Transmitted Disease: No HIV/AIDS: No Genitourinary: Yes (L KIDNEY REMOVED FOR TUMOR-MALIGNANT;) UTI-Chronic Gastrointestinal: Yes (CHRONIC ABDOMINAL PAIN AND NAUSEA/VOMTING COMPLAINTS) Abdominal Hernia, Liver Disease/Jaundice, Obstructive Bowel, Pancreatitis, Polyps Musculoskeletal: Yes (COCCYX-REMOVED; MULTIPLE KNEE SURGERIES, ) Chronic Back Pain Endocrine: Yes (CHRONIC PANCREATITIS; OBESITY) HEENT: No Loss of Vision: Denies Hearing Impairment: Denies Cancer: Yes Kidney Did You Recieve Any Treatments: Yes What Type of Treatment Did You: Surgical Intervention Psychosocial: Yes Depression Integumentary: No Herpes Blood Disorders: No Adverse Reaction/Blood Tranf: No (N/A) Family Medical History Reviewed Nursing Family Hx Cardiovascular disease 19 FATHER Completed stroke 19 FATHER Diabetes mellitus 19 FATHER Hypercholesterolemia 19 FATHER 19 MOTHER Hypertension 19 FATHER 19 MOTHER Neoplasm 19 MOTHER Psychosocial problem 19 FATHER 19 MOTHER No Pertinent Family Hx, Cancer, Diabetes, Hypertension PSH: -RIGHT KNEE SCOPE X 5 -LEFT KNEE SCOPE X 2 -NASAL FRACTURE REPAIR -COCCYX REMOVAL -LEFT NEPHRECTOMY FOR MALIGNANCY -LEFT MID ABDOMEN INCISIONAL HERNIA REPAIR -DRAINAGE OF ABDOMINAL WALL ABSCESS -MULTIPLE EGD'S AND COLONOSCOPIES Physical Exam Vital Signs Vital Signs - First Documented 10/17/19 05:11 Temp 37.4 Pulse 88 Resp 14 B/P (MAP) 135/72 (93) Pulse Ox 99 O2 Delivery Room Air Capillary Refill : Less Than 3 Seconds Height/Weight/BMI Height: 5'3.00" Weight: 246lbs. 0oz. 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 as tested, no motor/sensory deficits, alert, normal mood/affect, oriented x 3 Skin: normal color, warm/dry Progress/Results/Core Measures Results/Orders Lab Results Laboratory Tests Test 10/17/19 05:15 10/17/19 05:22 Range/Units White Blood Count 8.1 4.3-11.0 10^3/uL Red Blood Count 4.73 4.35-5.85 10^6/uL Hemoglobin 12.5 11.5-16.0 G/DL Hematocrit 39 35-52 % Mean Corpuscular Volume 82 80-99 FL Mean Corpuscular Hemoglobin 26 25-34 PG Mean Corpuscular Hemoglobin Concent 32 32-36 G/DL Red Cell Distribution Width 15.7 H 10.0-14.5 % Platelet Count 277 130-400 10^3/uL Mean Platelet Volume 9.5 7.4-10.4 FL Neutrophils (%) (Auto) 55 42-75 % Lymphocytes (%) (Auto) 37 12-44 % Monocytes (%) (Auto) 5 0-12 % Eosinophils (%) (Auto) 3 0-10 % Basophils (%) (Auto) 0 0-10 % Neutrophils # (Auto) 4.5 1.8-7.8 X 10^3 Lymphocytes # (Auto) 3.0 1.0-4.0 X 10^3 Monocytes # (Auto) 0.4 0.0-1.0 X 10^3 Eosinophils # (Auto) 0.3 0.0-0.3 10^3/uL Basophils # (Auto) 0.0 0.0-0.1 10^3/uL Sodium Level 141 135-145 MMOL/L Potassium Level 3.9 3.6-5.0 MMOL/L Chloride Level 105 98-107 MMOL/L Carbon Dioxide Level 22 21-32 MMOL/L Anion Gap 14 5-14 MMOL/L Blood Urea Nitrogen 22 H 7-18 MG/DL Creatinine 1.06 0.60-1.30 MG/DL Estimat Glomerular Filtration Rate 59 BUN/Creatinine Ratio 21 Glucose Level 112 H 70-105 MG/DL Calcium Level 9.3 8.5-10.1 MG/DL Corrected Calcium 9.2 8.5-10.1 MG/DL Total Bilirubin 0.2 0.1-1.0 MG/DL Aspartate Amino Transf (AST/SGOT) 48 H 5-34 U/L Alanine Aminotransferase (ALT/SGPT) 36 0-55 U/L Alkaline Phosphatase 62 40-136 U/L C-Reactive Protein High Sensitivity 1.37 H 0.00-0.50 MG/DL Total Protein 7.6 6.4-8.2 GM/DL Albumin 4.1 3.2-4.5 GM/DL Lipase 69 8-78 U/L Urine Color YELLOW Urine Clarity CLEAR Urine pH 6.5 5-9 Urine Specific [place] 1.020 1.016-1.022 Urine Protein NEGATIVE NEGATIVE Urine Glucose (UA) NEGATIVE NEGATIVE Urine Ketones NEGATIVE NEGATIVE Urine Nitrite NEGATIVE NEGATIVE Urine Bilirubin NEGATIVE NEGATIVE Urine Urobilinogen 0.2 < = 1.0 MG/DL Urine Leukocyte Esterase NEGATIVE NEGATIVE Urine RBC (Auto) NEGATIVE NEGATIVE Urine RBC NONE /HPF Urine WBC NONE /HPF Urine Squamous Epithelial Cells 5-10 /HPF Urine Crystals NONE /LPF Urine Bacteria TRACE /HPF Urine Casts NONE /LPF Urine Mucus SMALL H /LPF Urine Culture Indicated NO My Orders Orders - IZABELA RENDON MD Ondansetron Injection (Zofran Injectio (10/17/19 05:08) Cbc With Automated Diff (10/17/19 05:27) Comprehensive Metabolic Panel (10/17/19 05:27) Hs C Reactive Protein (10/17/19 05:27) Lipase (10/17/19 05:27) Ua Culture If Indicated (10/17/19 05:27) Ed Iv/Invasive Line Start (10/17/19 05:27) Ns Iv 1000 Ml (Sodium Chloride 0.9%) (10/17/19 05:27) Promethazine Injection (Phenergan Injec (10/17/19 05:30) Famotidine Injection (Pepcid Injection) (10/17/19 05:30) Abdomen, Flat & Upright/Decub (10/17/19 05:27) Scopolamine Patch (Transderm-Scop Patch) (10/17/19 06:30) Medications Given in ED Current Medications Medications Dose Ordered Sig/Neal Route Start Time Stop Time Status Last Admin Dose Admin Promethazine HCl 25 mg ONCE ONCE IVP 10/17/19 08:00 10/17/19 08:01 DC 10/17/19 08:02 25 MG Scopolamine 1.5 mg ONCE ONCE TD 10/17/19 06:30 10/17/19 06:31 DC 10/17/19 06:54 1.5 MG Vital Signs/I&O 10/17/19 10/17/19 05:11 08:33 Temp 37.4 37.4 Pulse 88 82 Resp 14 14 B/P (MAP) 135/72 (93) 129/79 (93) Pulse Ox 99 97 O2 Delivery Room Air Room Air Blood Pressure Mean: 93 Progress Progress Note #1: Time: 05:54 Progress Note Patient was seen and examined. She is still nauseated after Zofran. Phenergan, IV fluids, and Pepcid have been ordered. Labs are pending. We will obtain a KUB and upright x-ray to screen for possible bowel obstruction. Progress Note #2: Time: 06:28 Progress Note Patient still feels significantly nauseated after Zofran, Phenergan, and Pepcid. We will try scopolamine patch. She has a liter of IV fluids infusing. Care of this patient is being transitioned to Dr. Torres who will provide any further care if needed prior to discharge. Abdominal x-ray showed no features of obstruction. Progress Note #3: Progress Note Additional Phenergan was administered by Dr. Torres prior to departure. Diagnostic Imaging Diagonstic Imaging: Xray Plain Films/CT/US/NM/MRI: abdomen, pelvis Comments KUB and upright abdominal views were viewed by me. Report not yet available. There is a nonspecific bowel pattern with no obstructive features. Report returned later as follows: NAME: FELY DELGADOLuis Eduardo Dean [facility] REC#: [id number] PT STATUS: DEP ER : [id number] PHYSICIAN: IZABELA RENDON MD ADMIT DATE: 10/17/19/ER Signed Date of Exam:10/17/19 ABDOMEN, FLAT & UPRIGHT/DECUB EXAMINATION: Abdomen at 6:09 AM INDICATION: Abdominal pain Supine and erect views of the abdomen were obtained. There is only a very small amount of gas in both the large and small bowel. The amount of bowel gas has diminished since the prior exam of 05/29/2019. There is no evidence for bowel obstruction. There is at least a moderate amount of fecal material throughout the ascending, transverse and descending colon. There is no mass, hepatomegaly or pathological calcification evident. There is no sign of a pneumoperitoneum. Surgical clips are again seen overlying the right abdomen and there are surgical sutures overlying the left mid abdomen. The osseous structures are intact. IMPRESSION: 1. The bowel gas pattern is nonspecific. There is no evidence for an acute abnormality. 2. There is a fair amount of fecal material in the ascending, transverse, and descending colon. Dictated by: Dictated on workstation # [id number] Dict: 10/17/19906 Trans: 10/17/19 1438 [facility] [id number] Interpreted by: NETTA MCFADDEN MD Electronically signed by: NETTA MCFADDEN MD 10/17/19 1438 Departure Impression Primary Impression: Chronic abdominal pain Additional Impression: Nausea and vomiting Qualified Codes: R11.2 - Nausea with vomiting, unspecified Disposition: 01 HOME, SELF-CARE Condition: Improved Departure-Patient Inst. Decision time for Depature: 06:29 Referrals: CARMEN GIBBS MD (PCP/Family) Primary Care Physician Patient Instructions: CHRONIC PAIN, Nausea and Vomiting, Adult Add. Discharge Instructions: Adhere to a clear liquid diet for the first 24 hours. Gradually advance your diet with small quantities of bland food as tolerated. Follow-up with your primary care provider as soon as possible. Continue home medications as previously prescribed. You may leave the scopolamine patch on for 3 days. Return to care. Worsening symptoms despite these recommendations. All discharge instructions reviewed with patient and/or family. Voiced understanding. Copy Copies To 1: CARMEN GIBBS MD, JOSHUA T MD October 17, 2019 05:51
--- OUTSIDE RECORDS SUMMARY | 2019-10-17 05:53 | XMS REPORT | Continuity of Care Document ---
Demographics Preferred Language Unknown Marital Status Unknown Anglican Affiliation Unknown Race Unknown Ethnic Group Unknown Author Organization Unknown Address Unknown Phone Unavailable Allergies Active Description Code Type Severity Reaction Onset Reported/Identified Relationship to Patient Clinical Status Yes Demerol Drug Allergy N/A N/A 08/04/2008 Yes fentanyl Drug Allergy N/A N/A 08/04/2008 Yes Penicillins Drug Allergy N/A N/A 08/04/2008 Yes Demerol Drug Allergy 08/04/2008 Yes fentanyl Drug Allergy 08/04/2008 Yes Penicillins Drug Allergy 08/04/2008 Yes vancomycin [id number] Drug Allerg y Moderate severe itching 10/16/2018 Yes fentanyl [id number] Drug Allergy Unknown N/A 10/16/2018 Yes meperidine [id number] Drug Allerg y Unknown N/A 10/16/2018 Yes penicillin G [id number] Drug Allergy Unknown N/A 10/16/2018 Medications There is no data. Problems Date Dx Coded Attending Type Code Diagnosis Diagnosed By 08/04/2008 REGINO BOYD DDS 577.9 PANCREATITIS 08/04/2008 REGINO BOYD DDS N 780.79 FATIGUE 08/04/2008 REGINO BOYD DDS N 784.0 Headache 08/04/2008 577.9 PANC REATITIS 08/04/2008 780.79 FATIGUE 08/04/2008 784.0 Headache 08/04/2008 BRENNA LOBATO APRN R 577.9 PANCREATITIS 08/04/2008 BRENNA LOBATO APRN R 780.79 FATIGUE 08/04/2008 BRENNA LOBATO APRN R 784.0 Headache 08/04/2008 ROLON SUDHIR GAMINGA K 577.9 PANCREATITIS 08/04/2008 ROLON DO EMIL K 780.79 FATIGUE 08/04/2008 SUDHIR ROLON DOA K 784.0 Headache 08/04/2008 ELLY DOUGLAS MD 577.9 PANCREATITIS 08/04/2008 ELLY DOUGLAS MD 780.7 9 FATIGUE 08/04/2008 ELLY DOUGLAS MD 784.0 Headache 08/04/2008 SAI MD, CARMEN N 577 .9 PANCREATITIS 08/04/2008 SAI PARISH, CARMEN N 780 .79 FATIGUE 08/04/2008 CARMEN GIBBS MD N 784 .0 Headache 08/04/2008 SAI PARISH, CARMEN N 577 .9 PANCREATITIS 08/04/2008 CARMEN GIBBS MD N 780 .79 FATIGUE 08/04/2008 SAI PARISH, CARMEN N 784 .0 Headache 08/04/2008 JESSICA DDS, RAQUEL Galdamez 577.9 PANCREATITIS 08/04/2008 JESSICA DDS, RAQUEL M 780.79 FATIGUE 08/04/2008 JESSICA DDS, RAQUEL Galdamez 784.0 Headache 08/04/2008 ROLON DO, EMIL K 577.9 PANCREATITIS 08/04/2008 ROLON DO, EMIL K 780.79 FATIGUE 08/04/2008 ROLON DO, EMIL K 784.0 Headache 08/04/2008 CARMEN GIBBS MD N 577 .9 PANCREATITIS 08/04/2008 CAMREN GIBBS MD N 780 .79 FATIGUE 08/04/2008 CARMEN GIBBS MD N 784 .0 Headache 08/04/2008 CARMEN GIBBS MD N 577 .9 PANCREATITIS 08/04/2008 CARMEN GIBBS MD N 780 .79 FATIGUE 08/04/2008 CARMEN GIBBS MD N 784 .0 Headache 08/04/2008 OSMAN ALVAREZ APRN 57 7.9 PANCREATITIS 08/04/2008 OSMAN ALVAREZ APRN 780.79 FATIGUE 08/04/2008 OSMAN ALVAREZ APRN 78 4.0 Headache 08/04/2008 ROLON DO, EMIL K 577.9 [...] ROLON DO, EMIL K 784.0 Headache 08/04/2008 OSMAN ALVAREZ APRN 57 7.9 PANCREATITIS 08/04/2008 KIM ASSURANCE ENGINEER, OSMAN T 780.79 FATIGUE 08/04/2008 KIM ASSURANCE ENGINEER, OSMAN T 78 4.0 Headache 08/04/2008 ROLON DO, EMIL K 577.9 PANCREATITIS 08/04/2008 ROLON DO, EMIL K 780.79 FATIGUE 08/04/2008 ROLON DO, EMIL K 784.0 Headache 08/04/2008 ROLON DO, EMIL K 577.9 PANCREATITIS 08/04/2008 ROLON DO, EMIL K 780.79 FATIGUE 08/04/2008 ROLON DO, EMIL K 784.0 Headache 08/04/2008 LUIS ALFREDO ASSURANCE ENGINEER, BRENNA R 577.9 PANCREATITIS 08/04/2008 LUIS ALFREDO ASSURANCE ENGINEER, BRENNA R 780.79 FATIGUE 08/04/2008 LUIS ALFREDO YUN, BRENNA R 784.0 Headache 08/04/2008 MADL ASSURANCE ENGINEER, ANSON L 577 .9 PANCREATITIS 08/04/2008 MADL ASSURANCE ENGINEER, ANSON L 780 .79 FATIGUE 08/04/2008 MAD ASSURANCE ENGINEER, ANSON L 784 .0 Headache 08/04/2008 LUIS ALFREDO BAUMANN, BRENNA R 577.9 PANCREATITIS 08/04/2008 LUIS ALFREDO YUN, BRENNA R 780.79 FATIGUE 08/04/2008 LUIS ALFREDO BAUMANN BRENNA R 784.0 Headache 08/04/2008 CARMEN GIBBS MD N 577 .9 PANCREATITIS 08/04/2008 CARMEN GIBBS MD N 780 .79 FATIGUE 08/04/2008 CARMEN GIBBS MD N 784 .0 Headache 08/04/2008 ROLON DO, EMIL K 577.9 PANCREATITIS 08/04/2008 ROLON DO, EMIL K 780.79 FATIGUE 08/04/2008 ROLON DO, EMIL K 784.0 Headache 08/04/2008 MICHELINE ASSURANCE ENGINEER, RAQUEL R 577.9 PANCREATITIS 08/04/2008 MICHELINE ASSURANCE ENGINEER, RAQUEL R 780.79 FATIGUE 08/04/2008 MICHELINE ASSURANCE ENGINEER, RAQUEL R 784.0 Headache 08/04/2008 CARMEN GIBBS MD N 577 .9 PANCREATITIS 08/04/2008 CARMEN GIBBS MD N 780 .79 FATIGUE 08/04/2008 CARMEN GIBBS MD N 784 .0 Headache 08/04/2008 LOBATO ASSURANCE ENGINEER, BRENNA R 577.9 PANCREATITIS 08/04/2008 LOBATO ASSURANCE ENGINEER, BRENNA R 780.79 FATIGUE 08/04/2008 LOBATO ASSURANCE ENGINEER, BRENNA R 784.0 Headache 08/04/2008 MICHELINE ASSURANCE ENGINEER, RAQUEL R 577.9 PANCREATITIS 08/04/2008 MICHELINE ASSURANCE ENGINEER, RAQUEL R 780.79 FATIGUE 08/04/2008 MICHELINE ASSURANCE ENGINEER, RAQUEL R 784.0 Headache 08/04/2008 CARMEN GIBBS MD N 577 .9 PANCREATITIS 08/04/2008 CARMEN GIBBS MD N 780 .79 FATIGUE 08/04/2008 CARMEN GIBBS MD N 784 .0 Headache 08/04/2008 MADL ASSURANCE ENGINEER, ANSON L 577 .9 PANCREATITIS 08/04/2008 MADL ASSURANCE ENGINEER, ANSON L 780 .79 FATIGUE 08/04/2008 MADL ASSURANCE ENGINEER, ANSON L 784 .0 Headache 08/04/2008 MADL ASSURANCE ENGINEER, ANSON L 577 .9 PANCREATITIS 08/04/2008 MADL ASSURANCE ENGINEER, ANSON L 780 .79 FATIGUE 08/04/2008 MADL ASSURANCE ENGINEER, ANSON L 784 .0 Headache 08/04/2008 MICHELINE ASSURANCE ENGINEER, RAQUEL R 577.9 PANCREATITIS 08/04/2008 MICHELINE ASSURANCE ENGINEER, RAQUEL R 780.79 FATIGUE 08/04/2008 MICHELINE ASSURANCE ENGINEER, RAQUEL R 784.0 Headache 08/04/2008 WHITE DDS, ELLIOT J 57 7.9 PANCREATITIS 08/04/2008 WHITE DDS, ELLIOT J 780.79 FATIGUE 08/04/2008 WHITE DDS, ELLIOT J 78 4.0 Headache 08/04/2008 CARMEN GIBBS MD N 577 .9 PANCREATITIS 08/04/2008 CARMEN GIBBS MD N 780 .79 FATIGUE 08/04/2008 CARMEN GIBBS MD N 784 .0 Headache 08/04/2008 ROLON DO, EMIL K 577.9 PANCREATITIS 08/04/2008 ROLON DO, EMIL K 780.79 FATIGUE 08/04/2008 ROLON DO, EMIL K 784.0 Headache 08/04/2008 MADL ASSURANCE ENGINEER, ANSON L 577 .9 PANCREATITIS 08/04/2008 MADL ASSURANCE ENGINEER, ANSON L 780 .79 FATIGUE 08/04/2008 MADL ASSURANCE ENGINEER, ANSON L 784 .0 Headache 08/04/2008 CARMEN GIBBS MD N 577 .9 PANCREATITIS 08/04/2008 CARMEN GIBBS MD N 780 .79 FATIGUE 08/04/2008 CARMEN GIBBS MD N 784 .0 Headache 08/04/2008 CARMEN GIBBS MD N 577 .9 PANCREATITIS 08/04/2008 CARMEN GIBBS MD N 780 .79 FATIGUE 08/04/2008 CARMEN GIBBS MD N 784 .0 Headache 08/04/2008 MADL ASSURANCE ENGINEER, ANSON L 577 .9 PANCREATITIS 08/04/2008 MADL ASSURANCE ENGINEER, ANSON L 780 .79 FATIGUE 08/04/2008 MADL ASSURANCE ENGINEER, ANSON L 784 .0 Headache 08/04/2008 ROLON DO, EMIL K 577.9 PANCREATITIS 08/04/2008 ROLON DO, EMIL K 780.79 FATIGUE 08/04/2008 ROLON DO, EMIL K 784.0 Headache 12/20/2008 REGINO BOYD DDS 794.6 Endocrine Laboratory Tests Nonspecific Abnormal Findin gs 12/20/2008 794.6 Endo crine Laboratory Tests Nonspecific Abnormal Findings 12/20/2008 BRENNA LOBATO APRN 794.6 Endocrine Laboratory Tests Nonspecific Abnormal Findin gs 12/20/2008 SUDHIR ROLON DOA K 794.6 Endocrine Laboratory Tests Nonspecific Abnormal Findings 12/20/2008 ELLY DOUGLAS MD 794.6 Endocrine Laboratory Tests Nonspecific Abnormal Findings 12/20/2008 CARMEN GIBBS MD 794 .6 Endocrine Laboratory Tests Nonspecific Abnormal Findings 12/20/2008 CARMEN GIBBS MD 794 .6 Endocrine Laboratory Tests Nonspecific Abnormal Findings 12/20/2008 RAQUEL LOPEZ DDS 794.6 Endocrine Laboratory Tests Nonspecific Abnormal Findin gs 12/20/2008 ROLON SUDHIR GAMINGA K 794.6 Endocrine Laboratory Tests Nonspecific Abnormal Findings 12/20/2008 CARMEN GIBBS MD 794 .6 Endocrine Laboratory Tests Nonspecific Abnormal Findings 12/20/2008 CARMEN GIBBS MD 794 .6 Endocrine Laboratory Tests Nonspecific Abnormal Findings 12/20/2008 KIM ASSURANCE ENGINEER, OSMAN T 79 4.6 Endocrine Laboratory Tests Nonspecific Abnormal Findings 12/20/2008 ROLON DO, EMIL K 794.6 Endocrine Laboratory Tests Nonspecific Abnormal Findings 12/20/2008 ROLON DO, EMIL K 794.6 Endocrine Laboratory Tests Nonspecific Abnormal Findings 12/20/2008 ROLON DO, EMIL K 794.6 Endocrine Laboratory Tests Nonspecific Abnormal Findings 12/20/2008 OSMAN ALVAREZ APRN T 79 4.6 Endocrine Laboratory Tests Nonspecific Abnormal Findings 12/20/2008 ROLON DO, EMIL K 794.6 Endocrine Laboratory Tests Nonspecific Abnormal Findings 12/20/2008 ROLON DO, EMIL K 794.6 Endocrine Laboratory Tests Nonspecific Abnormal Findings 12/20/2008 CRISTINO LOBATO APRNIA R 794.6 Endocrine Laboratory Tests Nonspecific Abnormal Findin gs 12/20/2008 ANSON WADE APRN L 794 .6 Endocrine Laboratory Tests Nonspecific Abnormal Findings 12/20/2008 BRENNA LOBATO APRN R 794.6 Endocrine Laboratory Tests Nonspecific Abnormal Findin gs 12/20/2008 CARMEN GIBBS MD N 794 .6 Endocrine Laboratory Tests Nonspecific Abnormal Findings 12/20/2008 ROLON DO, EMIL K 794.6 Endocrine Laboratory Tests Nonspecific Abnormal Findings 12/20/2008 MALACHI TOBIAS APRNINA R 794.6 Endocrine Laboratory Tests Nonspecific Abnormal Findin gs 12/20/2008 CARMEN GIBBS MD N 794 .6 Endocrine Laboratory Tests Nonspecific Abnormal Findings 12/20/2008 BRENNA LOBATO APRN R 794.6 Endocrine Laboratory Tests Nonspecific Abnormal Findin gs 12/20/2008 RAQUEL TOBIAS APRN R 794.6 Endocrine Laboratory Tests Nonspecific Abnormal Findin gs 12/20/2008 CARMEN GIBBS MD 794 .6 Endocrine Laboratory Tests Nonspecific Abnormal Findings 12/20/2008 ANSON WADE APRN L 794 .6 Endocrine Laboratory Tests Nonspecific Abnormal Findings 12/20/2008 ANSON WADE APRN L 794 .6 Endocrine Laboratory Tests Nonspecific Abnormal Findings 12/20/2008 RAQUEL TOBIAS APRN R 794.6 Endocrine Laboratory Tests Nonspecific Abnormal Findin gs 12/20/2008 ELLIOT MORENO DDS J 79 4.6 Endocrine Laboratory Tests Nonspecific Abnormal Findings 12/20/2008 CARMEN GIBBS MD N 794 .6 Endocrine Laboratory Tests Nonspecific Abnormal Findings 12/20/2008 ROLON DO, EMIL K 794.6 Endocrine Laboratory Tests Nonspecific Abnormal Findings 12/20/2008 ANSON WADE APRN L 794 .6 Endocrine Laboratory Tests Nonspecific Abnormal Findings 12/20/2008 CARMEN GIBBS MD N 794 .6 Endocrine Laboratory Tests Nonspecific Abnormal Findings 12/20/2008 CARMEN GIBBS MD 794 .6 Endocrine Laboratory Tests Nonspecific Abnormal Findings 12/20/2008 ANSON WADE APRN L 794 .6 Endocrine Laboratory Tests Nonspecific Abnormal Findings 12/20/2008 ROLON DO, EMIL K 794.6 Endocrine Laboratory Tests Nonspecific Abnormal Findings 03/31/2009 REGINO BOYD DDS N 493.90 ASTHMA 03/31/2009 493.90 ASTHMA 03/31/2009 BRENNA LOBATO APRN R 493.90 ASTHMA 03/31/2009 ROLON DO, EIML K 493.90 ASTHMA 03/31/2009 STELLA PARISH, ELLY 493.9 0 ASTHMA 03/31/2009 CARMEN GIBBS MD 493 .90 ASTHMA 03/31/2009 CARMEN GIBBS MD 493 .90 ASTHMA 03/31/2009 RAQUEL LOPEZ DDS 493.90 ASTHMA 03/31/2009 ROLON DO, EMIL K 493.90 ASTHMA 03/31/2009 CARMEN GIBBS MD 493 .90 ASTHMA 03/31/2009 CARMEN GIBBS MD 493 .90 ASTHMA 03/31/2009 OSMAN ALVAREZ APRN 493.90 ASTHMA 03/31/2009 ROLON DO, EMIL K 493.90 ASTHMA 03/31/2009 ROLON DO, EMIL K 493.90 ASTHMA 03/31/2009 ROLON DO, EMIL K 493.90 ASTHMA 03/31/2009 OSMAN ALVAREZ APRN 493.90 ASTHMA 03/31/2009 ROLON DO, EMIL K 493.90 ASTHMA 03/31/2009 ROLON DO, EMIL K 493.90 ASTHMA 03/31/2009 BRENNA LOBATO APRN R 493.90 ASTHMA 03/31/2009 ANSON WADE APRN 493 .90 ASTHMA 03/31/2009 BRENNA LOBATO APRN R 493.90 ASTHMA 03/31/2009 CARMEN GIBBS MD 493 .90 ASTHMA 03/31/2009 ROLON DO, EMIL K 493.90 ASTHMA 03/31/2009 MICHELINE ASSURANCE ENGINEER, RAQUEL R 493.90 ASTHMA 03/31/2009 CARMEN GIBBS MD N 493 .90 ASTHMA 03/31/2009 CRISTINO LOBATO APRNIA R 493.90 ASTHMA 03/31/2009 MICHELINE BAUMANN, RAQUEL R 493.90 ASTHMA 03/31/2009 CARMEN GIBBS MD N 493 .90 ASTHMA 03/31/2009 MADL ASSURANCE ENGINEER, ANSON L 493 .90 ASTHMA 03/31/2009 MADL ASSURANCE ENGINEER, ANSON L 493 .90 ASTHMA 03/31/2009 MICHELINE YUN, RAQUEL R 493.90 ASTHMA 03/31/2009 JOSH VILLAVICENCIO, ELLIOT Alston 493.90 ASTHMA 03/31/2009 CARMEN GIBBS MD N 493 .90 ASTHMA 03/31/2009 EMIL ROLON DO K 493.90 ASTHMA 03/31/2009 MADBenji BAUMANN, ANSON L 493 .90 ASTHMA 03/31/2009 CARMEN GIBBS MD N 493 .90 ASTHMA 03/31/2009 CARMEN GIBBS MD N 493 .90 ASTHMA 03/31/2009 MADL ASSURANCE ENGINEER, ANSON L 493 .90 ASTHMA 03/31/2009 GONZALES GAMING, EMIL K 493.90 ASTHMA 04/25/2009 DEB VILLAVICENCIO, REGINO Christie V74.1 Screening Examination For Pulmonary Tuberculosis 04/25/2009 V74.1 Scre ening Examination For Pulmonary Tuberculosis 04/25/2009 BRENNA LOBATO APRN R V74.1 Screening Examination For Pulmonary Tuberculosis 04/25/2009 SUDHIR ROLON DOA K V74.1 Screening Examination For Pulmonary Tuberculosis 04/25/2009 ELLY DOUGLAS MD V74.1 Screening Examination For Pulmonary Tuberculosis 04/25/2009 CARMEN GIBBS MD V74 .1 Screening Examination For Pulmonary Tuberculosis 04/25/2009 CARMEN GIBBS MD V74 .1 Screening Examination For Pulmonary Tuberculosis 04/25/2009 RAQUEL LOPEZ DDS V74.1 Screening Examination For Pulmonary Tuberculosis 04/25/2009 SUDHIR ROLON DOA K V74.1 Screening Examination For Pulmonary Tuberculosis 04/25/2009 CARMEN GIBBS MD V74 .1 Screening Examination For Pulmonary Tuberculosis 04/25/2009 CARMEN GIBBS MD V74 .1 Screening Examination For Pulmonary Tuberculosis 04/25/2009 OSMAN ALVAREZ APRN V7 4.1 Screening Examination For Pulmonary Tuberculosis 04/25/2009 ROLON DO, EMIL K V74.1 Screening Examination For Pulmonary Tuberculosis 04/25/2009 ROLON DO, EMIL K V74.1 Screening Examination For Pulmonary Tuberculosis 04/25/2009 ROLON DO, EMIL K V74.1 Screening Examination For Pulmonary Tuberculosis 04/25/2009 OSMAN ALVAREZ APRN V7 4.1 Screening Examination For Pulmonary Tuberculosis 04/25/2009 ROLON DO, EMIL K V74.1 Screening Examination For Pulmonary Tuberculosis 04/25/2009 ROLON DO, EMIL K V74.1 Screening Examination For Pulmonary Tuberculosis 04/25/2009 LUIS ALFREDO BAUMANN BRENNA R V74.1 Screening Examination For Pulmonary Tuberculosis 04/25/2009 SHERI BAUMANN, ANSON L V74 .1 Screening Examination For Pulmonary Tuberculosis 04/25/2009 LUIS ALFREDO BAUMANN BRENNA R V74.1 Screening Examination For Pulmonary Tuberculosis 04/25/2009 CARMEN GIBBS MD V74 .1 Screening Examination For Pulmonary Tuberculosis 04/25/2009 ROLON DO, EMIL K V74.1 Screening Examination For Pulmonary Tuberculosis 04/25/2009 MICHELINE BAUMANN, RAQUEL R V74.1 Screening Examination For Pulmonary Tuberculosis 04/25/2009 CARMEN GIBBS MD V74 .1 Screening Examination For Pulmonary Tuberculosis 04/25/2009 CRISTINO LOBATO APRNIA R V74.1 Screening Examination For Pulmonary Tuberculosis 04/25/2009 MICHELINE BAUMANN, RAQUEL R V74.1 Screening Examination For Pulmonary Tuberculosis 04/25/2009 CARMEN GIBBS MD V74 .1 Screening Examination For Pulmonary Tuberculosis 04/25/2009 SHERI BAUMANN, ANSON L V74 .1 Screening Examination For Pulmonary Tuberculosis 04/25/2009 SHERI BAUMANN, ANSON L V74 .1 Screening Examination For Pulmonary Tuberculosis 04/25/2009 MICHELINE BAUMANN, RAQUEL R V74.1 Screening Examination For Pulmonary Tuberculosis 04/25/2009 ELLIOT MORENO DDS V7 4.1 Screening Examination For Pulmonary Tuberculosis 04/25/2009 CARMEN GIBBS MD V74 .1 Screening Examination For Pulmonary Tuberculosis 04/25/2009 GONZALES DO, EMIL K V74.1 Screening Examination For Pulmonary Tuberculosis 04/25/2009 SHERI BAUMANN, ANSON L V74 .1 Screening Examination For Pulmonary Tuberculosis 04/25/2009 SAI PARISH, CARMEN Christie V74 .1 Screening Examination For Pulmonary Tuberculosis 04/25/2009 CARMEN GIBBS MD V74 .1 Screening Examination For Pulmonary Tuberculosis 04/25/2009 SHERI BAUMANN, ANSON L V74 .1 Screening Examination For Pulmonary Tuberculosis 04/25/2009 ROLON DO, EMIL K V74.1 Screening Examination For Pulmonary Tuberculosis 04/26/2009 DEB VILLAVICENCIO, REGINO Christie 112.0 Candidiasis Oral Thrush 04/26/2009 112.0 Cand idiasis Oral Thrush 04/26/2009 BRENNA LOBATO APRN R 112.0 Candidiasis Oral Thrush 04/26/2009 ROLON DO, EMIL K 112.0 Candidiasis Oral Thrush 04/26/2009 ELLY DOUGLAS MD 112.0 Candidiasis Oral Thrush 04/26/2009 CARMEN GIBBS MD 112 .0 Candidiasis Oral Thrush 04/26/2009 CARMEN GIBBS MD 112 .0 Candidiasis Oral Thrush 04/26/2009 JESSICA VILLAVICENCIO, RAQUEL Galdamez 112.0 Candidiasis Oral Thrush 04/26/2009 ROLON DO, EMIL K 112.0 Candidiasis Oral Thrush 04/26/2009 CARMEN GIBBS MD 112 .0 Candidiasis Oral Thrush 04/26/2009 CARMEN GIBBS MD 112 .0 Candidiasis Oral Thrush 04/26/2009 OSMAN ALVAREZ APRN T 11 2.0 Candidiasis Oral Thrush 04/26/2009 ROLON DO, EMIL K 112.0 Candidiasis Oral Thrush 04/26/2009 ROLON DO, EMIL K 112.0 Candidiasis Oral Thrush 04/26/2009 ROLON DO, EMIL K 112.0 Candidiasis Oral Thrush 04/26/2009 KIM BAUMANN OSMAN T 11 2.0 Candidiasis Oral Thrush 04/26/2009 ROLON DO, EMIL K 112.0 Candidiasis Oral Thrush 04/26/2009 ROLON DO, EMIL K 112.0 Candidiasis Oral Thrush 04/26/2009 EMERY LOBATO APRNRICIA R 112.0 Candidiasis Oral Thrush 04/26/2009 ANSON WADE APRN L 112 .0 Candidiasis Oral Thrush 04/26/2009 BRENNA LOBATO APRN R 112.0 Candidiasis Oral Thrush 04/26/2009 CARMEN GIBBS MD N 112 .0 Candidiasis Oral Thrush 04/26/2009 GONZALES GAMING EMIL K 112.0 Candidiasis Oral Thrush 04/26/2009 MICHELINE BAUMANN RAQUEL R 112.0 Candidiasis Oral Thrush 04/26/2009 CARMEN GIBBS MD N 112 .0 Candidiasis Oral Thrush 04/26/2009 BRENNA LOBATO APRN R 112.0 Candidiasis Oral Thrush 04/26/2009 MICHELINE BAUMANN RAQUEL R 112.0 Candidiasis Oral Thrush 04/26/2009 CARMEN GIBBS MD N 112 .0 Candidiasis Oral Thrush 04/26/2009 SHERI ASSURANCE ENGINEER, ANSON L 112 .0 Candidiasis Oral Thrush 04/26/2009 SHERI BAUMANN, ANSON L 112 .0 Candidiasis Oral Thrush 04/26/2009 MALACHI TOBIAS APRNINA R 112.0 Candidiasis Oral Thrush 04/26/2009 ELLIOT MORENO DDS 11 2.0 Candidiasis Oral Thrush 04/26/2009 CARMEN GIBBS MD N 112 .0 Candidiasis Oral Thrush 04/26/2009 SUDHIR ROLON DOA K 112.0 Candidiasis Oral Thrush 04/26/2009 SHERI BAUMANN, ANSON L 112 .0 Candidiasis Oral Thrush 04/26/2009 CARMEN GIBBS MD N 112 .0 Candidiasis Oral Thrush 04/26/2009 CARMEN GIBBS MD N 112 .0 Candidiasis Oral Thrush 04/26/2009 SHERI BAUMANN, ANSON L 112 .0 Candidiasis Oral Thrush 04/26/2009 SUDHIR ROLON DOA K 112.0 Candidiasis Oral Thrush 05/24/2009 DEB VILLAVICENCIO, REGINO Christie 789.06 Abdominal Pain In The Central Upper Belly (epigastric) 05/24/2009 789.06 Abd ominal Pain In The Central Upper Belly (epigastric) 05/24/2009 BRENNA LOBATO APRN 789.06 Abdominal Pain In The Central Upper Belly (epigastric) 05/24/2009 EMIL ROLON DO K 789.06 Abdominal Pain In The Central Upper Belly (epigastric) 05/24/2009 ELLY DOUGLAS MD 789.0 6 Abdominal Pain In The Central Upper Belly (epigastric) 05/24/2009 CARMEN GIBBS MD 789 .06 Abdominal Pain In The Central Upper Belly (epigastric) 05/24/2009 CARMEN GIBBS MD 789 .06 Abdominal Pain In The Central Upper Belly (epigastric) 05/24/2009 RAQUEL LOPEZ DDS 789.06 Abdominal Pain In The Central Upper Belly (epigastric) 05/24/2009 EMIL ROLON DO 789.06 Abdominal Pain In The Central Upper Belly (epigastric) 05/24/2009 CARMEN GIBBS MD 789 .06 Abdominal Pain In The Central Upper Belly (epigastric) 05/24/2009 CARMEN GIBBS MD 789 .06 Abdominal Pain In The Central Upper Belly [...] Upper Belly (epigastric) 05/24/2009 BRENNA LOBATO APRN 789.06 Abdominal Pain In The Central Upper Belly (epigastric) 05/24/2009 ANSON WADE APRN 789 .06 Abdominal Pain In The Central Upper Belly (epigastric) 05/24/2009 BRENNA LOBATO APRN 789.06 Abdominal Pain In The Central Upper Belly (epigastric) 05/24/2009 CARMEN GIBBS MD 789 .06 Abdominal Pain In The Central Upper Belly (epigastric) 05/24/2009 EMIL ROLON DO 789.06 Abdominal Pain In The Central Upper Belly (epigastric) 05/24/2009 RAQUEL TOBIAS APRN R 789.06 Abdominal Pain In The Central Upper Belly (epigastric) 05/24/2009 CARMEN GIBBS MD 789 .06 Abdominal Pain In The Central Upper Belly (epigastric) 05/24/2009 BRENNA LOBATO APRN 789.06 Abdominal Pain In The Central Upper Belly (epigastric) 05/24/2009 RAQUEL TOBIAS APRN R 789.06 Abdominal Pain In The Central Upper Belly (epigastric) 05/24/2009 CARMEN GIBBS MD N 789 .06 Abdominal Pain In The Central Upper Belly (epigastric) 05/24/2009 ANSON WADE APRN L 789 .06 Abdominal Pain In The Central Upper Belly (epigastric) 05/24/2009 ANSON WADE APRN 789 .06 Abdominal Pain In The Central Upper Belly (epigastric) 05/24/2009 RAQUEL TOBIAS APRN R 789.06 Abdominal Pain In The Central Upper Belly (epigastric) 05/24/2009 ELLIOT MORENO DDS 789.06 Abdominal Pain In The Central Upper Belly (epigastric) 05/24/2009 CARMEN GIBBS MD N 789 .06 Abdominal Pain In The Central Upper Belly (epigastric) 05/24/2009 EMIL ROLON DO 789.06 Abdominal Pain In The Central Upper Belly (epigastric) 05/24/2009 ANSON WADE APRN 789 .06 Abdominal Pain In The Central Upper Belly (epigastric) 05/24/2009 CARMEN GIBBS MD 789 .06 Abdominal Pain In The Central Upper Belly (epigastric) 05/24/2009 CARMEN GIBBS MD 789 .06 Abdominal Pain In The Central Upper Belly (epigastric) 05/24/2009 ANSON WADE APRN 789 .06 Abdominal Pain In The Central Upper Belly (epigastric) 05/24/2009 EMIL ROLON DO 789.06 Abdominal Pain In The Central Upper Belly (epigastric) 07/14/2009 DEB VILLAVICENCIO, REGINO Christie 278.00 OBESITY 07/14/2009 278.00 OBESITY 07/14/2009 LOBATO ASSURANCE ENGINEER, BRENNA R 278.00 OBESITY 07/14/2009 ROLON DO, EMIL K 278.00 OBESITY 07/14/2009 STELLA PARISH, ELLY 278.0 0 OBESITY 07/14/2009 CARMEN GIBBS MD 278 .00 OBESITY 07/14/2009 CARMEN GIBBS MD 278 .00 OBESITY 07/14/2009 JESSICA VILLAVICENCIO, RAQUEL Galdamez 278.00 OBESITY 07/14/2009 ROLON DO, EMIL K 278.00 OBESITY 07/14/2009 CARMEN GIBBS MD 278 .00 OBESITY 07/14/2009 CARMEN GIBBS MD 278 .00 OBESITY 07/14/2009 KIM BAUMANN OSMAN T 278.00 OBESITY 07/14/2009 ROLON DO, EMIL K 278.00 OBESITY 07/14/2009 ROLON DO, EMIL K 278.00 OBESITY 07/14/2009 ROLON DO, EMIL K 278.00 OBESITY 07/14/2009 KIM BAUMANN OSMAN T 278.00 OBESITY 07/14/2009 ROLON DO, EMIL K 278.00 OBESITY 07/14/2009 ROLON DO, EMIL K 278.00 OBESITY 07/14/2009 EMERY LOBATO APRNRICIA R 278.00 OBESITY 07/14/2009 LETICIA WADE APRNA L 278 .00 OBESITY 07/14/2009 LUIS ALFREDO BAUMANN BRENNA R 278.00 OBESITY 07/14/2009 CARMEN GIBBS MD 278 .00 OBESITY 07/14/2009 ROLON DO, EMIL K 278.00 OBESITY 07/14/2009 MICHELINE BAUMANN RAQUEL R 278.00 OBESITY 07/14/2009 CARMEN GIBBS MD 278 .00 OBESITY 07/14/2009 CRISTINO LOBATO APRNIA R 278.00 OBESITY 07/14/2009 MICHELINE BAUMANN RAQUEL R 278.00 OBESITY 07/14/2009 CARMEN GIBBS MD 278 .00 OBESITY 07/14/2009 ANSON WADE APRN L 278 .00 OBESITY 07/14/2009 LETICIA WADE APRNA L 278 .00 OBESITY 07/14/2009 MICHELINE BAUMANN RAQUEL R 278.00 OBESITY 07/14/2009 ELLIOT MORENO DDS 278.00 OBESITY 07/14/2009 CARMEN GIBBS MD 278 .00 OBESITY 07/14/2009 ROLON DO, EMIL K 278.00 OBESITY 07/14/2009 SHERI BAUMANN, ANSON L 278 .00 OBESITY 07/14/2009 CARMEN GIBBS MD N 278 .00 OBESITY 07/14/2009 SAI PARISH, CARMEN N 278 .00 OBESITY 07/14/2009 ANSON WADE APRN L 278 .00 OBESITY 07/14/2009 ROLON DO, EMIL K 278.00 OBESITY 09/05/2009 DEB VILLAVICENCIO, REGINO N 597.80 Urethritis, Unspecified 09/05/2009 597.80 Ure thritis, Unspecified 09/05/2009 BRENNA LOBATO APRN R 597.80 Urethritis, Unspecified 09/05/2009 ROLON DO, EMIL K 597.80 Urethritis, Unspecified 09/05/2009 ELLY DOUGLAS MD 597.8 0 Urethritis, Unspecified 09/05/2009 CARMEN GIBBS MD N 597 .80 Urethritis, Unspecified 09/05/2009 CARMEN GIBBS MD 597 .80 Urethritis, Unspecified 09/05/2009 JESSICA VILLAVICENCIO, RAQUEL Galdamez 597.80 Urethritis, Unspecified 09/05/2009 ROLON DO, EMIL K 597.80 Urethritis, Unspecified 09/05/2009 CARMEN GIBBS MD N 597 .80 Urethritis, Unspecified 09/05/2009 CARMEN GIBBS MD N 597 .80 Urethritis, Unspecified 09/05/2009 OSMAN ALVAREZ APRN 597.80 Urethritis, Unspecified 09/05/2009 ROLON DO, EMIL K 597.80 Urethritis, Unspecified 09/05/2009 ROLON DO, EMIL K 597.80 Urethritis, Unspecified 09/05/2009 ROLON DO, EMIL K 597.80 Urethritis, Unspecified 09/05/2009 OSMAN ALVAREZ APRN 597.80 Urethritis, Unspecified 09/05/2009 ROLON DO, EMIL K 597.80 Urethritis, Unspecified 09/05/2009 ROLON DO, EMIL K 597.80 Urethritis, Unspecified 09/05/2009 BRENNA LOBATO APRN 597.80 Urethritis, Unspecified 09/05/2009 LETICIA WADE APRNA L 597 .80 Urethritis, Unspecified 09/05/2009 LUIS ALFREDO BAUMANN, BRENNA R 597.80 Urethritis, Unspecified 09/05/2009 CARMEN GIBBS MD N 597 .80 Urethritis, Unspecified 09/05/2009 EMIL ROLON DO K 597.80 Urethritis, Unspecified 09/05/2009 MICHELINE ASSURANCE ENGINEER, RAQUEL R 597.80 Urethritis, Unspecified 09/05/2009 CARMEN GIBBS MD N 597 .80 Urethritis, Unspecified 09/05/2009 BRENNA LOBATO APRN R 597.80 Urethritis, Unspecified 09/05/2009 MICHELINE ASSURANCE ENGINEER, RAQUEL R 597.80 Urethritis, Unspecified 09/05/2009 CARMEN GIBBS MD N 597 .80 Urethritis, Unspecified 09/05/2009 MADL ASSURANCE ENGINEER, ANSON L 597 .80 Urethritis, Unspecified 09/05/2009 MADL ASSURANCE ENGINEER, ANSON L 597 .80 Urethritis, Unspecified 09/05/2009 MICHELINE BAUMANN, RAQUEL R 597.80 Urethritis, Unspecified 09/05/2009 JOSH VILLAVICENCIO, ELLIOT J 597.80 Urethritis, Unspecified 09/05/2009 CARMEN GIBBS MD N 597 .80 Urethritis, Unspecified 09/05/2009 EMIL ROLON DO 597.80 Urethritis, Unspecified 09/05/2009 SHERI BAUMANN, ANSON L 597 .80 Urethritis, Unspecified 09/05/2009 CARMEN GIBBS MD N 597 .80 Urethritis, Unspecified 09/05/2009 CARMEN GIBBS MD N 597 .80 Urethritis, Unspecified 09/05/2009 MADBenji BAUMANN, ANSON L 597 .80 Urethritis, Unspecified 09/05/2009 EMIL ROLON DO K 597.80 Urethritis, Unspecified 09/24/2009 DEB JETERS, REGINO N 719.46 Pain In Joint, Lower Leg 09/24/2009 719.46 Poncho n In Joint, Lower Leg 09/24/2009 BRENNA LOBATO APRN R 719.46 Pain In Joint, Lower Leg 09/24/2009 ROLON DO, EMIL K 719.46 Pain In Joint, Lower Leg 09/24/2009 LELY DOUGLAS MD 719.4 6 Pain In Joint, Lower Leg 09/24/2009 CARMEN GIBBS MD 719 .46 Pain In Joint, Lower Leg 09/24/2009 CARMEN GIBBS MD 719 .46 Pain In Joint, Lower Leg 09/24/2009 JESSICA VILLAVICENCIO, RAQUEL Galdamez 719.46 Pain In Joint, Lower Leg 09/24/2009 ROLON DO, EMIL K 719.46 Pain In Joint, Lower Leg 09/24/2009 CARMEN GIBBS MD 719 .46 Pain In Joint, Lower Leg 09/24/2009 CARMEN GIBBS MD 719 .46 Pain In Joint, Lower Leg 09/24/2009 OSMAN [...] Joint, Lower Leg 09/24/2009 ANSON WADE APRN L 719 .46 Pain In Joint, Lower Leg 09/24/2009 BRENNA LOBATO APRN R 719.46 Pain In Joint, Lower Leg 09/24/2009 CARMEN GIBBS MD 719 .46 Pain In Joint, Lower Leg 09/24/2009 ROLON DO, EMIL K 719.46 Pain In Joint, Lower Leg 09/24/2009 RAQUEL TOBIAS APRN R 719.46 Pain In Joint, Lower Leg 09/24/2009 CARMEN GIBBS MD 719 .46 Pain In Joint, Lower Leg 09/24/2009 BRENNA LOBATO APRN R 719.46 Pain In Joint, Lower Leg 09/24/2009 MICHELINE BAUMANN, RAQUEL R 719.46 Pain In Joint, Lower Leg 09/24/2009 CARMEN GIBBS MD N 719 .46 Pain In Joint, Lower Leg 09/24/2009 MADL ASSURANCE ENGINEER, ANSON L 719 .46 Pain In Joint, Lower Leg 09/24/2009 MADL ASSURANCE ENGINEER, ANSON L 719 .46 Pain In Joint, Lower Leg 09/24/2009 MICHELINE BAUMANN, RAQUEL R 719.46 Pain In Joint, Lower Leg 09/24/2009 ELLIOT MORENO DDS 719.46 Pain In Joint, Lower Leg 09/24/2009 CARMEN GIBBS MD N 719 .46 Pain In Joint, Lower Leg 09/24/2009 EMIL ROLON DO K 719.46 Pain In Joint, Lower Leg 09/24/2009 SHERI BAMUANN, ANSON L 719 .46 Pain In Joint, Lower Leg 09/24/2009 CARMEN GIBBS MD N 719 .46 Pain In Joint, Lower Leg 09/24/2009 CARMEN GIBBS MD N 719 .46 Pain In Joint, Lower Leg 09/24/2009 SHERI BAUMANN, ANSON L 719 .46 Pain In Joint, Lower Leg 09/24/2009 EMIL ROLON DO 719.46 Pain In Joint, Lower Leg 10/06/2009 REGINO BOYD DDS 717.7 Chondromalacia Of Patella 10/06/2009 717.7 Chantal dromalacia Of Patella 10/06/2009 BRENNA LOBATO APRN 717.7 Chondromalacia Of Patella 10/06/2009 EMIL ROLON DO 717.7 Chondromalacia Of Patella 10/06/2009 ELLY DOUGLAS MD 717.7 Chondromalacia Of Patella 10/06/2009 CARMEN GIBBS MD 717 .7 Chondromalacia Of Patella 10/06/2009 CARMEN GIBBS MD 717 .7 Chondromalacia Of Patella 10/06/2009 JESSICA VILLAVICENCIO, RAQUEL Galdamez 717.7 Chondromalacia Of Patella 10/06/2009 EMIL ROLON DO 717.7 Chondromalacia Of Patella 10/06/2009 CARMEN GIBBS MD 717 .7 Chondromalacia Of Patella 10/06/2009 CARMEN GIBBS MD 717 .7 Chondromalacia Of Patella 10/06/2009 OSMAN ALVAREZ APRN 71 7.7 Chondromalacia Of Patella 10/06/2009 EMIL ROLON DO K 717.7 Chondromalacia Of Patella 10/06/2009 ROLON DOSUDHIRA K 717.7 Chondromalacia Of Patella 10/06/2009 ROLON DOSUDHIRA K 717.7 Chondromalacia Of Patella 10/06/2009 OSMAN ALVAREZ APRN 71 7.7 Chondromalacia Of Patella 10/06/2009 SUDHIR ROLON DOA K 717.7 Chondromalacia Of Patella 10/06/2009 SUDHIR ROLON DOA K 717.7 Chondromalacia Of Patella 10/06/2009 BRENNA LOBATO APRN R 717.7 Chondromalacia Of Patella 10/06/2009 ANSON WADE APRN L 717 .7 Chondromalacia Of Patella 10/06/2009 BRENNA LOBATO APRN R 717.7 Chondromalacia Of Patella 10/06/2009 CARMEN GIBBS MD 717 .7 Chondromalacia Of Patella 10/06/2009 EMIL ROLON DO K 717.7 Chondromalacia Of Patella 10/06/2009 RAQUEL TOBIAS APRN R 717.7 Chondromalacia Of Patella 10/06/2009 CARMEN GIBBS MD 717 .7 Chondromalacia Of Patella 10/06/2009 BRENNA LOBATO APRN R 717.7 Chondromalacia Of Patella 10/06/2009 MALACHI TOBIAS APRNINA R 717.7 Chondromalacia Of Patella 10/06/2009 CARMEN GIBBS MD 717 .7 Chondromalacia Of Patella 10/06/2009 ANSON WADE APRN L 717 .7 Chondromalacia Of Patella 10/06/2009 ANSON WADE APRN L 717 .7 Chondromalacia Of Patella 10/06/2009 RAQUEL TOBIAS APRN R 717.7 Chondromalacia Of Patella 10/06/2009 JOSH JETERS, ELLIOT J 71 7.7 Chondromalacia Of Patella 10/06/2009 SAI MD, CARMEN N 717 .7 Chondromalacia Of Patella 10/06/2009 ROLON DO, EMIL K 717.7 Chondromalacia Of Patella 10/06/2009 ANSON WADE APRN 717 .7 Chondromalacia Of Patella 10/06/2009 CARMEN GIBBS MD N 717 .7 Chondromalacia Of Patella 10/06/2009 CARMEN GIBBS MD N 717 .7 Chondromalacia Of Patella 10/06/2009 ANSON WADE APRN 717 .7 Chondromalacia Of Patella 10/06/2009 ROLON DO, EMIL K 717.7 Chondromalacia Of Patella 11/03/2009 DEB VILLAVICENCIO, REGINO N 733.92 Chondromalacia 11/03/2009 733.92 Cho ndromalacia 11/03/2009 BRENNA LOBATO APRN R 733.92 Chondromalacia 11/03/2009 ROLON DO EMIL K 733.92 Chondromalacia 11/03/2009 ELLY DOUGLAS MD 733.9 2 Chondromalacia 11/03/2009 CARMEN GIBBS MD N 733 .92 Chondromalacia 11/03/2009 CARMEN GIBBS MD N 733 .92 Chondromalacia 11/03/2009 RAQUEL LOPEZ DDS 733.92 Chondromalacia 11/03/2009 ROLON DO, EMIL K 733.92 Chondromalacia 11/03/2009 CARMEN GIBBS MD N 733 .92 Chondromalacia 11/03/2009 CARMEN GIBBS MD N 733 .92 Chondromalacia 11/03/2009 OSMAN ALVAREZ APRN 733.92 Chondromalacia 11/03/2009 ROLON DO, EMIL K 733.92 Chondromalacia 11/03/2009 ROLON DO, EMIL K 733.92 Chondromalacia 11/03/2009 ROLON DO, EMIL K 733.92 Chondromalacia 11/03/2009 OSMAN ALVAREZ APRN 733.92 Chondromalacia 11/03/2009 ROLON DO, EMIL K 733.92 Chondromalacia 11/03/2009 ROLON DO, EMIL K 733.92 Chondromalacia 11/03/2009 BRENNA LOBATO APRN R 733.92 Chondromalacia 11/03/2009 MADL ASSURANCE ENGINEER, ANSON L 733 .92 Chondromalacia 11/03/2009 LUIS ALFREDO BAUMANN BRENNA R 733.92 Chondromalacia 11/03/2009 CARMEN GIBBS MD N 733 .92 Chondromalacia 11/03/2009 EMIL ROLON DO K 733.92 Chondromalacia 11/03/2009 MICHELINE BAUMANN RAQUEL R 733.92 Chondromalacia 11/03/2009 CARMEN GIBBS MD N 733 .92 Chondromalacia 11/03/2009 BRENNA LOBATO APRN R 733.92 Chondromalacia 11/03/2009 MICHELINE BAUMANN RAQUEL R 733.92 Chondromalacia 11/03/2009 CARMEN GIBBS MD N 733 .92 Chondromalacia 11/03/2009 ANSON WADE APRN L 733 .92 Chondromalacia 11/03/2009 LETICIA WADE APRNA L 733 .92 Chondromalacia 11/03/2009 MALACHI TOBIAS APRNINA R 733.92 Chondromalacia 11/03/2009 JOSH VILLAVICENCIO, ELLIOT J 733.92 Chondromalacia 11/03/2009 CARMEN GIBBS MD N 733 .92 Chondromalacia 11/03/2009 EMIL ROLNO DO K 733.92 Chondromalacia 11/03/2009 LETICIA WADE APRNA L 733 .92 Chondromalacia 11/03/2009 CARMEN GIBBS MD N 733 .92 Chondromalacia 11/03/2009 CARMEN GIBBS MD N 733 .92 Chondromalacia 11/03/2009 ANSON WADE APRN L 733 .92 Chondromalacia 11/03/2009 SUDHIR ROLON DOA K 733.92 Chondromalacia 11/07/2009 Ot 789.09 11/08/2009 REGINO BOYD DDS 338.4 CHRONIC PAIN SYNDROME 11/08/2009 338.4 PROJECT ANALYST DAHLIA PAIN SYNDROME 11/08/2009 BRENNA LOBATO APRN R 338.4 CHRONIC PAIN SYNDROME 11/08/2009 SUDHIR ROLON DOA K 338.4 CHRONIC PAIN SYNDROME 11/08/2009 ELLY DOUGLAS MD 338.4 CHRONIC PAIN SYNDROME 11/08/2009 CARMEN GIBBS MD 338 .4 CHRONIC PAIN SYNDROME 11/08/2009 CARMEN GIBBS MD 338 .4 CHRONIC PAIN SYNDROME 11/08/2009 JESSICA VILLAVICENCIO, RAQUEL Galdamez 338.4 CHRONIC PAIN SYNDROME 11/08/2009 ROLON DO, EMIL K 338.4 CHRONIC PAIN SYNDROME 11/08/2009 CARMEN GIBBS MD 338 .4 CHRONIC PAIN SYNDROME 11/08/2009 CARMEN GIBBS MD 338 .4 CHRONIC PAIN SYNDROME 11/08/2009 OSMAN ALVAREZ APRN 33 8.4 CHRONIC PAIN SYNDROME 11/08/2009 ROLON DO, EMIL K 338.4 CHRONIC PAIN SYNDROME 11/08/2009 ROLON DO, EMIL K 338.4 CHRONIC PAIN SYNDROME 11/08/2009 ROLON DO, EMIL K 338.4 CHRONIC PAIN SYNDROME 11/08/2009 OSMAN ALVAREZ APRN 33 8.4 CHRONIC PAIN SYNDROME 11/08/2009 ROLON DO, EMIL K 338.4 CHRONIC PAIN SYNDROME 11/08/2009 ROLON DO, EMIL K 338.4 CHRONIC PAIN SYNDROME 11/08/2009 EMERY LOBATO APRNRICIA R 338.4 CHRONIC PAIN SYNDROME 11/08/2009 SHERI BAUMANN ANSON L 338 .4 CHRONIC PAIN SYNDROME 11/08/2009 LUIS ALFREDO BAUMANN BRENNA R 338.4 CHRONIC PAIN SYNDROME 11/08/2009 CARMEN GIBBS MD 338 .4 CHRONIC PAIN SYNDROME 11/08/2009 ROLON DO, EMIL K 338.4 CHRONIC PAIN SYNDROME 11/08/2009 MICHELINE BAUMANN RAQUEL R 338.4 CHRONIC PAIN SYNDROME 11/08/2009 CARMEN GIBBS MD 338 .4 CHRONIC PAIN SYNDROME 11/08/2009 EMERY LOBATO APRNRICIA R 338.4 CHRONIC PAIN SYNDROME 11/08/2009 MICHELINE BAUMANN RAQUEL R 338.4 CHRONIC PAIN SYNDROME 11/08/2009 CARMEN GIBBS MD N 338 .4 CHRONIC PAIN SYNDROME 11/08/2009 SHERI BAUMANN ANSON L 338 .4 CHRONIC PAIN SYNDROME 11/08/2009 MADBenji BAUMANN ANSON L 338 .4 CHRONIC PAIN SYNDROME 11/08/2009 MICHELINE BAUMANN RAQUEL R 338.4 CHRONIC PAIN SYNDROME 11/08/2009 JOSH VILLAVICENCIO, ELLIOT Alston 33 8.4 CHRONIC PAIN SYNDROME 11/08/2009 CARMEN GIBBS MD 338 .4 CHRONIC PAIN SYNDROME 11/08/2009 GONZALES DO, EMIL K 338.4 CHRONIC PAIN SYNDROME 11/08/2009 ANSON WADE APRN 338 .4 CHRONIC PAIN SYNDROME 11/08/2009 CARMEN GIBBS MD 338 .4 CHRONIC PAIN SYNDROME 11/08/2009 CARMEN GIBBS MD 338 .4 CHRONIC PAIN SYNDROME 11/08/2009 ANSON WADE APRN 338 .4 CHRONIC PAIN SYNDROME 11/08/2009 ROLON DOSUDHIRA K 338.4 CHRONIC PAIN SYNDROME 11/18/2009 Ot 717.7 11/18/2009 Ot V57.1 12/20/2009 REGINO BOYD DDS 704.8 Folliculitis 12/20/2009 704.8 Foll iculitis 12/20/2009 BRENNA LOBATO APRN 704.8 Folliculitis 12/20/2009 RLOON DO, EMIL K 704.8 Folliculitis 12/20/2009 ELLY DOUGLAS MD 704.8 Folliculitis 12/20/2009 CARMEN GIBBS MD N 704 .8 Folliculitis 12/20/2009 CARMEN GIBBS MD 704 .8 Folliculitis 12/20/2009 RAQUEL LOPEZ DDS 704.8 Folliculitis 12/20/2009 ROLON DO, EMIL K 704.8 Folliculitis 12/20/2009 CARMEN GIBBS MD N 704 .8 Folliculitis 12/20/2009 CARMEN GIBBS MD 704 .8 Folliculitis 12/20/2009 OSMAN ALVAREZ APRN 70 4.8 Folliculitis 12/20/2009 ROLON DO, EMIL K 704.8 Folliculitis 12/20/2009 ROLON DO, EMIL K 704.8 Folliculitis 12/20/2009 ROLON DO, EMIL K 704.8 Folliculitis 12/20/2009 OSMAN ALVAREZ APRN 70 4.8 Folliculitis 12/20/2009 ROLON DO, EMIL K 704.8 Folliculitis 12/20/2009 ROLON DO, EMIL K 704.8 Folliculitis 12/20/2009 BRENNA LOBATO APRN 704.8 Folliculitis 12/20/2009 MADL ASSURANCE ENGINEER, ANSON L 704 .8 Folliculitis 12/20/2009 LUIS ALFREDO BAUMANN BRENNA R 704.8 Folliculitis 12/20/2009 CARMEN GIBBS MD N 704 .8 Folliculitis 12/20/2009 GONZALES GAMING, EMIL K 704.8 Folliculitis 12/20/2009 MICHELINE ASSURANCE ENGINEER, RAQUEL R 704.8 Folliculitis 12/20/2009 CARMEN GIBBS MD N 704 .8 Folliculitis 12/20/2009 CRISTINO LOBATO APRNIA R 704.8 Folliculitis 12/20/2009 MICHELINE ASSURANCE ENGINEER, RAQUEL R 704.8 Folliculitis 12/20/2009 CARMEN GIBBS MD N 704 .8 Folliculitis 12/20/2009 MADBenji ASSURANCE ENGINEER, ANSON L 704 .8 Folliculitis 12/20/2009 MADL ASSURANCE ENGINEER, ANSON L 704 .8 Folliculitis 12/20/2009 MICHELINE BAUMANN, RAQUEL R 704.8 Folliculitis 12/20/2009 JOSH VILLAVICENCIO, ELLIOT J 70 4.8 Folliculitis 12/20/2009 CARMEN GIBBS MD N 704 .8 Folliculitis 12/20/2009 EMIL ROLON DO K 704.8 Folliculitis 12/20/2009 MADBenji BAUMANN, ANSON L 704 .8 Folliculitis 12/20/2009 CARMEN GIBBS MD N 704 .8 Folliculitis 12/20/2009 CARMEN GIBBS MD N 704 .8 [facility]liculitis 12/20/2009 [facility] AN[facility] L 704 .8 Folliculitis 12/20/2009 ROLON , EMIL K 704.8 Folliculitis 12/29/2009 DEB VILLAVICENCIO, REGINO Christie 787.3 Flatulence, Eructation, And Gas Pain 12/29/2009 787.3 Flat ulence, Eructation, And Gas Pain 12/29/2009 BRENNA LOBATO APRN R 787.3 Flatulence, Eructation, And Gas Pain 12/29/2009 ROLON SUDHIR GAMINGA K 787.3 Flatulence, Eructation, And Gas Pain 12/29/2009 ELLY DOUGLAS MD 787.3 Flatulence, Eructation, And Gas Pain 12/29/2009 CARMEN GIBBS MD 787 .3 Flatulence, Eructation, And Gas Pain 12/29/2009 CARMEN GIBBS MD 787 .3 Flatulence, Eructation, And Gas Pain 12/29/2009 RAQUEL LOPEZ DDS 787.3 Flatulence, Eructation, And Gas Pain 12/29/2009 ROLON DO, EMIL K 787.3 Flatulence, Eructation, And Gas Pain 12/29/2009 CARMEN GIBBS MD 787 .3 Flatulence, Eructation, And Gas Pain 12/29/2009 CARMEN GIBBS MD 787 .3 Flatulence, Eructation, And Gas Pain 12/29/2009 OSMAN ALVAREZ APRN 78 7.3 Flatulence, Eructation, And Gas Pain 12/29/2009 ROLON DO, EMIL K 787.3 Flatulence, Eructation, And Gas Pain 12/29/2009 ROLON DO, EMIL K 787.3 Flatulence, Eructation, And Gas Pain 12/29/2009 ROLON DO, EMIL K 787.3 Flatulence, Eructation, And Gas Pain 12/29/2009 OSMAN ALVAREZ APRN 78 7.3 Flatulence, Eructation, And Gas Pain 12/29/2009 ROLON DO, EMIL K 787.3 Flatulence, Eructation, And Gas Pain 12/29/2009 ROLON DO, EMIL K 787.3 Flatulence, Eructation, And Gas Pain 12/29/2009 BRENNA LOBATO APRN R 787.3 Flatulence, Eructation, And Gas Pain 12/29/2009 ANSON WADE APRN 787 .3 Flatulence, Eructation, And Gas Pain 12/29/2009 BRENNA LOBATO APRN R 787.3 Flatulence, Eructation, And Gas Pain 12/29/2009 CARMEN GIBBS MD 787 .3 Flatulence, Eructation, And Gas Pain 12/29/2009 ROLON DO EMIL K 787.3 Flatulence, Eructation, And Gas Pain 12/29/2009 RAQUEL TOBIAS APRN R 787.3 Flatulence, Eructation, And Gas Pain 12/29/2009 CARMEN GIBBS MD N 787 .3 Flatulence, Eructation, And Gas Pain 12/29/2009 BRENNA LOBATO APRN R 787.3 Flatulence, Eructation, And Gas Pain 12/29/2009 RAQUEL TOBIAS APRN R 787.3 Flatulence, Eructation, And Gas Pain 12/29/2009 CARMEN GIBBS MD N 787 .3 Flatulence, Eructation, And Gas Pain 12/29/2009 ANSON WADE APRN L 787 .3 Flatulence, Eructation, And Gas Pain 12/29/2009 ANSON WADE APRN L 787 .3 Flatulence, Eructation, And Gas Pain 12/29/2009 RAQUEL TOBIAS APRN R 787.3 Flatulence, Eructation, And Gas Pain 12/29/2009 ELLIOT MORENO DDS 78 7.3 Flatulence, Eructation, And Gas Pain 12/29/2009 CARMEN GIBBS MD N 787 .3 Flatulence, Eructation, And Gas Pain 12/29/2009 EMIL ROLON DO K 787.3 Flatulence, Eructation, And Gas Pain 12/29/2009 ANSON WADE APRN L 787 .3 Flatulence, Eructation, And Gas Pain 12/29/2009 CARMEN GIBBS MD N 787 .3 Flatulence, Eructation, And Gas Pain 12/29/2009 CARMEN GIBBS MD 787 .3 Flatulence, Eructation, And Gas Pain 12/29/2009 ANSON WADE APRN L 787 .3 Flatulence, Eructation, And Gas Pain 12/29/2009 GONZALES GAMING EMIL K 787.3 Flatulence, Eructation, And Gas Pain 01/09/2010 Ot 717.7 01/23/2010 Ot 211.3 01/23/2010 Ot 787.99 02/03/2010 REGINO BOYD DDS N 709.9 Dermatology - Non-infectious 02/03/2010 709.9 Derm atology - Non- infectious 02/03/2010 LOBATO ASSURANCE ENGINEER, BRENNA R 709.9 Dermatology - Non-infectious 02/03/2010 ROLON , EMIL K 709.9 Dermatology - Non-infectious 02/03/2010 ELLY DOUGLAS MD 709.9 Dermatology - Non-infectious 02/03/2010 SAI PARISH, CARMEN N 709 .9 Dermatology - Non-infectious 02/03/2010 SAI PARISH, CAMREN N 709 .9 Dermatology - Non-infectious 02/03/2010 RAQUEL LOPEZ DDS 709.9 Dermatology - Non-infectious 02/03/2010 ROLON DO, EMIL K 709.9 Dermatology - Non-infectious 02/03/2010 SAI PARISH, CARMEN N 709 .9 Dermatology - Non-infectious 02/03/2010 SAI PARISH, CARMEN N 709 .9 Dermatology - Non-infectious 02/03/2010 OSMAN ALVAREZ APRN 70 9.9 Dermatology - Non-infectious 02/03/2010 ROLON DO, EMIL K 709.9 Dermatology - Non-infectious 02/03/2010 ROLON DO, EMIL K 709.9 Dermatology - Non-infectious 02/03/2010 ROLON DO, EMIL K 709.9 Dermatology - Non-infectious 02/03/2010 OSMAN ALVAREZ APRN 70 9.9 Dermatology - Non-infectious 02/03/2010 ROLON DO, EMIL K 709.9 Dermatology - Non-infectious 02/03/2010 ROLON DO, EMIL K 709.9 Dermatology - Non-infectious 02/03/2010 CRISTINO LOBATO APRNIA R 709.9 Dermatology - Non-infectious 02/03/2010 ANSON WADE APRN L 709 .9 Dermatology - Non-infectious 02/03/2010 CRISTINO LOBATO APRNIA R 709.9 Dermatology - Non-infectious 02/03/2010 CARMEN GIBBS MD N 709 .9 Dermatology - Non-infectious 02/03/2010 GONZALES GAMING, EMIL K 709.9 Dermatology - Non-infectious 02/03/2010 MICHELINE BAUMANN RAQUEL R 709.9 Dermatology - Non-infectious 02/03/2010 CARMEN GIBBS MD N 709 .9 Dermatology - Non-infectious 02/03/2010 BRENNA LOBATO APRN R 709.9 Dermatology - Non-infectious 02/03/2010 MICHELINE BAUMANN, RAQUEL R 709.9 Dermatology - Non-infectious 02/03/2010 SAI PARISH, CARMEN N 709 .9 Dermatology - Non-infectious 02/03/2010 MADBenji ASSURANCE ENGINEER, ANSON L 709 .9 Dermatology - Non-infectious 02/03/2010 MADL ASSURANCE ENGINEER, ANSON L 709 .9 Dermatology - Non-infectious 02/03/2010 MICHELINE BAUMANN, RAQUEL R 709.9 Dermatology - Non-infectious 02/03/2010 JOSH VILLAVICENCIO, ELLIOT J 70 9.9 Dermatology - Non-infectious 02/03/2010 CARMEN GIBBS MD N 709 .9 Dermatology - Non-infectious 02/03/2010 EMIL ROLON DO K 709.9 Dermatology - Non-infectious 02/03/2010 SHERI BAUMANN, ANSON L 709 .9 Dermatology - Non-infectious 02/03/2010 CARMEN GIBBS MD N 709 .9 Dermatology - Non-infectious 02/03/2010 CARMEN GIBBS MD N 709 .9 Dermatology - Non-infectious 02/03/2010 SHERI ASSURANCE ENGINEER, ANSON L 709 .9 Dermatology - Non-infectious 02/03/2010 EMIL ROLON DO K 709.9 Dermatology - Non-infectious 02/05/2010 Ot 789.06 02/07/2010 Ot 577.0 02/07/2010 Ot 789.06 02/08/2010 DEB VILLAVICENCIO, REGINO Christie 276.5 DEHYDRATION 02/08/2010 276.5 DEHY DRATION 02/08/2010 BRENNA LOBATO APRN 276.5 DEHYDRATION 02/08/2010 EMIL ROLON DO K 276.5 DEHYDRATION 02/08/2010 ELLY DOUGLAS MD 276.5 DEHYDRATION 02/08/2010 CRAMEN GIBBS MD N 276 .5 DEHYDRATION 02/08/2010 CARMEN GIBBS MD N 276 .5 DEHYDRATION 02/08/2010 JESSICA VILLAVICENCIO, RAQUEL Galdamez 276.5 DEHYDRATION 02/08/2010 EMIL ROLON DO K 276.5 DEHYDRATION 02/08/2010 CARMEN GIBBS MD N 276 .5 DEHYDRATION 02/08/2010 CARMEN GIBBS MD N 276 .5 DEHYDRATION 02/08/2010 OSMAN ALVAREZ APRN 27 6.5 DEHYDRATION 02/08/2010 ROLON DO, EMIL K 276.5 DEHYDRATION 02/08/2010 ROLON DO, EMIL K 276.5 DEHYDRATION 02/08/2010 ROLON DO, EMIL K 276.5 DEHYDRATION 02/08/2010 OSMAN ALVAREZ APRN 27 6.5 DEHYDRATION 02/08/2010 ROLON DO, EMIL K 276.5 DEHYDRATION 02/08/2010 ROLON DO, EMIL K 276.5 DEHYDRATION 02/08/2010 LUIS ALFREDO ASSURANCE ENGINEER, BRENNA R 276.5 DEHYDRATION 02/08/2010 MADL ASSURANCE ENGINEER, ANSON L 276 .5 DEHYDRATION 02/08/2010 LOBATO ASSURANCE ENGINEER, BRENNA R 276.5 DEHYDRATION 02/08/2010 CARMEN GIBBS MD N 276 .5 DEHYDRATION 02/08/2010 ROLON DO, EMIL K 276.5 DEHYDRATION 02/08/2010 MICHELINE BAUMANN, RAQUEL R 276.5 DEHYDRATION 02/08/2010 CARMEN GIBBS MD N 276 .5 DEHYDRATION 02/08/2010 LUIS ALFREDO YUN, BRENNA R 276.5 DEHYDRATION 02/08/2010 MICHELINE BAUMANN, RAQUEL R 276.5 DEHYDRATION 02/08/2010 CARMEN GIBBS MD N 276 .5 DEHYDRATION 02/08/2010 MADBenji ASSURANCE ENGINEER, ANSON L 276 .5 DEHYDRATION 02/08/2010 MADL ASSURANCE ENGINEER, ANSON L 276 .5 DEHYDRATION 02/08/2010 MICHELINE PASTOR, RAQUEL R 276.5 DEHYDRATION 02/08/2010 JOSH VILLAVICENCIO, ELLIOT Alston 27 6.5 DEHYDRATION 02/08/2010 CARMEN GIBBS MD N 276 .5 DEHYDRATION 02/08/2010 ROLON DO, EMIL K 276.5 DEHYDRATION 02/08/2010 MADBenji ASSURANCE ENGINEER, ANSON L 276 .5 DEHYDRATION 02/08/2010 CARMEN GIBBS MD N 276 .5 DEHYDRATION 02/08/2010 CARMEN GIBBS MD N 276 .5 DEHYDRATION 02/08/2010 SHERI BAUMANN, ANSON L 276 .5 DEHYDRATION 02/08/2010 ROLON DO, EMIL K 276.5 DEHYDRATION 02/13/2010 Ot 599.0 02/13/2010 Ot 789.06 02/15/2010 REGINO BOYD DDS N 110.4 Dermatophytosis, Of Foot 02/15/2010 110.4 Derm atophytosis, Of Foot 02/15/2010 BRENNA LOBATO APRN R 110.4 Dermatophytosis, Of Foot 02/15/2010 GONZALES GAMING, EMIL K 110.4 Dermatophytosis, Of Foot 02/15/2010 ELLY DOUGLAS MD 110.4 Dermatophytosis, Of Foot 02/15/2010 CARMEN GIBBS MD 110 .4 Dermatophytosis, Of Foot 02/15/2010 CARMEN GIBBS MD 110 .4 Dermatophytosis, Of Foot 02/15/2010 RAQUEL LOPEZ DDS 110.4 Dermatophytosis, Of Foot 02/15/2010 ROLON , EMIL K 110.4 Dermatophytosis, Of Foot 02/15/2010 CARMEN GIBBS MD 110 .4 Dermatophytosis, Of Foot 02/15/2010 CARMEN GIBBS MD 110 .4 Dermatophytosis, Of Foot 02/15/2010 OSMAN ALVAREZ APRN T 11 0.4 Dermatophytosis, Of Foot 02/15/2010 ROLON DO, EMIL K 110.4 Dermatophytosis, Of Foot 02/15/2010 ROLON DO, EMIL K 110.4 Dermatophytosis, Of Foot 02/15/2010 ROLON DO, EMIL K 110.4 Dermatophytosis, Of Foot 02/15/2010 OSMAN ALVAREZ APRN 11 0.4 Dermatophytosis, Of Foot 02/15/2010 ROLON DO, EMIL K 110.4 Dermatophytosis, Of Foot 02/15/2010 ROLON DO, EMIL K 110.4 Dermatophytosis, Of Foot 02/15/2010 BRENNA LOBATO APRN R 110.4 Dermatophytosis, Of Foot 02/15/2010 ANSON WADE APRN 110 .4 Dermatophytosis, Of Foot 02/15/2010 BRENNA LOBATO APRN R 110.4 Dermatophytosis, Of Foot 02/15/2010 CARMEN GIBBS MD 110 .4 Dermatophytosis, Of Foot 02/15/2010 GONZALES GAMING EMIL K 110.4 Dermatophytosis, Of Foot 02/15/2010 RAQUEL TOBIAS APRN 110.4 Dermatophytosis, Of Foot 02/15/2010 CARMEN GIBBS MD N 110 .4 Dermatophytosis, Of Foot 02/15/2010 BRENNA LOBATO APRN R 110.4 Dermatophytosis, Of Foot 02/15/2010 MALACHI TOBIAS APRNINA R 110.4 Dermatophytosis, Of Foot 02/15/2010 CARMEN GIBBS MD N 110 .4 Dermatophytosis, Of Foot 02/15/2010 LETICIA WADE APRNA L 110 .4 Dermatophytosis, Of Foot 02/15/2010 LETICIA WADE APRNA L 110 .4 Dermatophytosis, Of Foot 02/15/2010 RAQUEL TOBIAS APRN R 110.4 Dermatophytosis, Of Foot 02/15/2010 ELLIOT MORENO DDS 11 0.4 Dermatophytosis, Of Foot 02/15/2010 CARMEN GIBBS MD 110 .4 Dermatophytosis, Of Foot 02/15/2010 EMIL ROLON DO K 110.4 Dermatophytosis, Of Foot 02/15/2010 ANSON WADE APRN L 110 .4 Dermatophytosis, Of Foot 02/15/2010 CARMEN GIBBS MD 110 .4 Dermatophytosis, Of Foot 02/15/2010 CARMEN GIBBS MD 110 .4 Dermatophytosis, Of Foot 02/15/2010 ANSON WADE APRN L 110 .4 Dermatophytosis, Of Foot 02/15/2010 EMIL ROLON DO K 110.4 Dermatophytosis, Of Foot 03/31/2010 Ot 577.0 03/31/2010 Ot 789.00 04/07/2010 Ot 789.00 04/07/2010 Ot 791.9 04/17/2010 REGINO BOYD DDS 333.99 RESTLESS LEG SYNDROME 04/17/2010 333.99 RES TLESS LEG SYNDROME 04/17/2010 BRENNA LOBATO APRN R 333.99 RESTLESS LEG SYNDROME 04/17/2010 EMIL ROLON DO K 333.99 RESTLESS LEG SYNDROME 04/17/2010 ELLY DOUGLAS MD 333.9 9 RESTLESS LEG SYNDROME 04/17/2010 CARMEN GIBBS MD 333 .99 RESTLESS LEG SYNDROME 04/17/2010 CARMEN GIBBS MD N 333 .99 RESTLESS LEG SYNDROME 04/17/2010 JESSICA VILLAVICENCIO, RAQUEL Galdamez 333.99 RESTLESS LEG SYNDROME 04/17/2010 ROLON DO, EMIL K 333.99 RESTLESS LEG SYNDROME 04/17/2010 CARMEN GIBBS MD N 333 .99 RESTLESS LEG SYNDROME 04/17/2010 CARMEN GIBBS MD N 333 .99 RESTLESS LEG SYNDROME 04/17/2010 OSMAN ALVAREZ APRN T 333.99 RESTLESS LEG SYNDROME 04/17/2010 ROLON DO, EMIL K 333.99 RESTLESS LEG SYNDROME 04/17/2010 ROLON DO, EMIL K 333.99 RESTLESS LEG SYNDROME 04/17/2010 ROLON DO, EMIL K 333.99 RESTLESS LEG SYNDROME 04/17/2010 OSMAN ALVAREZ APRN 333.99 RESTLESS LEG SYNDROME 04/17/2010 ROLON DO, EMIL K 333.99 RESTLESS LEG SYNDROME 04/17/2010 ROLON DO, EMIL K 333.99 RESTLESS LEG SYNDROME 04/17/2010 LUIS ALFREDO BAUMANN BRENNA R 333.99 RESTLESS LEG SYNDROME 04/17/2010 SHERI BAUMANN, ANSON L 333 .99 RESTLESS LEG SYNDROME 04/17/2010 LUIS ALFREDO BAUMANN BRENNA R 333.99 RESTLESS LEG SYNDROME 04/17/2010 CARMEN GIBBS MD N 333 .99 RESTLESS LEG SYNDROME 04/17/2010 ROLON DO, EMIL K 333.99 RESTLESS LEG SYNDROME 04/17/2010 MICHELINE BAUMANN, RAQUEL R 333.99 RESTLESS LEG SYNDROME 04/17/2010 CARMEN GIBBS MD N 333 .99 RESTLESS LEG SYNDROME 04/17/2010 LUIS ALFREDO BAUMANN BRENNA R 333.99 RESTLESS LEG SYNDROME 04/17/2010 MICHELINE BAUMANN, RAQUEL R 333.99 RESTLESS LEG SYNDROME 04/17/2010 CARMEN GIBBS MD N 333 .99 RESTLESS LEG SYNDROME 04/17/2010 SHERI BAUMANN ANSON L 333 .99 RESTLESS LEG SYNDROME 04/17/2010 SHERI BAUMANN, ANSON L 333 .99 RESTLESS LEG SYNDROME 04/17/2010 MICHELINE BAUMANN RAQUEL R 333.99 RESTLESS LEG SYNDROME 04/17/2010 JOSH VILLAVICENCIO, ELLIOT J 333.99 RESTLESS LEG SYNDROME 04/17/2010 SAI PARISH, CARMEN N 333 .99 RESTLESS LEG SYNDROME 04/17/2010 ROLON , EMIL K 333.99 RESTLESS LEG SYNDROME 04/17/2010 ANSON WADE APRN L 333 .99 RESTLESS LEG SYNDROME 04/17/2010 CARMEN GIBBS MD N 333 .99 RESTLESS LEG SYNDROME 04/17/2010 CARMEN GIBBS MD 333 .99 RESTLESS LEG SYNDROME 04/17/2010 ANSON WADE APRN 333 .99 RESTLESS LEG SYNDROME 04/17/2010 ROLON DO EMIL K 333.99 RESTLESS LEG SYNDROME 05/22/2010 REGINO BOYD DDS 788.31 Urge Incontinence 05/22/2010 788.31 Urg e Incontinence 05/22/2010 BRENNA LOBATO APRN 788.31 Urge Incontinence 05/22/2010 ROLON DO, EMIL K 788.31 Urge Incontinence 05/22/2010 ELLY DOUGLAS MD 788.3 1 Urge Incontinence 05/22/2010 CARMEN GIBBS MD N 788 .31 Urge Incontinence 05/22/2010 CARMEN GIBBS MD N 788 .31 Urge Incontinence 05/22/2010 RAQUEL LOPEZ DDS 788.31 Urge Incontinence 05/22/2010 ROLON DO, EMIL K 788.31 Urge Incontinence 05/22/2010 CARMEN GIBBS MD N 788 .31 Urge Incontinence 05/22/2010 CARMEN GIBBS MD N 788 .31 Urge Incontinence 05/22/2010 OSMAN ALVAREZ APRN 788.31 [...] LOBATO APRN R 788.31 Urge Incontinence 05/22/2010 LETICIA WADE APRNA L 788 .31 Urge Incontinence 05/22/2010 EMERY LOBATO APRNRICIA R 788.31 Urge Incontinence 05/22/2010 CARMEN GIBBS MD N 788 .31 Urge Incontinence 05/22/2010 SUDHIR ROLON DOA K 788.31 Urge Incontinence 05/22/2010 MICHELINE BAUMANN RAQUEL R 788.31 Urge Incontinence 05/22/2010 CARMEN GIBBS MD N 788 .31 Urge Incontinence 05/22/2010 BRENNA LOBATO APRN R 788.31 Urge Incontinence 05/22/2010 MICHELINE BAUMANN, RAQUEL R 788.31 Urge Incontinence 05/22/2010 CARMEN GIBBS MD N 788 .31 Urge Incontinence 05/22/2010 ANSON WADE APRN L 788 .31 Urge Incontinence 05/22/2010 LETICIA WADE APRNA L 788 .31 Urge Incontinence 05/22/2010 MALACHI TOBIAS APRNINA R 788.31 Urge Incontinence 05/22/2010 JOSH VILLAVICENCIO, ELLIOT J 788.31 Urge Incontinence 05/22/2010 CARMEN GIBBS MD N 788 .31 Urge Incontinence 05/22/2010 EMIL ROLON DO K 788.31 Urge Incontinence 05/22/2010 LETICIA WADE APRNA L 788 .31 Urge Incontinence 05/22/2010 CARMEN GIBBS MD N 788 .31 Urge Incontinence 05/22/2010 CARMEN GIBBS MD N 788 .31 Urge Incontinence 05/22/2010 LETICIA WADE APRNA L 788 .31 Urge Incontinence 05/22/2010 GONZALES GAMING, EMIL K 788.31 Urge Incontinence 05/22/2010 Ot 789.01 06/16/2010 REGINO BOYD DDS 268.9 VITAMIN D DEFICIENCY 06/16/2010 268.9 WOO MIN D DEFICIENCY 06/16/2010 BRENNA LOBATO APRN R 268.9 VITAMIN D DEFICIENCY 06/16/2010 EMIL ROLON DO K 268.9 VITAMIN D DEFICIENCY 06/16/2010 ELLY DOUGLAS MD 268.9 VITAMIN D DEFICIENCY 06/16/2010 CARMEN GIBBS MD N 268 .9 VITAMIN D DEFICIENCY 06/16/2010 CARMEN GIBBS MD N 268 .9 VITAMIN D DEFICIENCY 06/16/2010 RAQUEL LOPEZ DDS 268.9 VITAMIN D DEFICIENCY 06/16/2010 ROLON DO, EMIL K 268.9 VITAMIN D DEFICIENCY 06/16/2010 CARMEN GIBBS MD N 268 .9 VITAMIN D DEFICIENCY 06/16/2010 CARMEN GIBBS MD N 268 .9 VITAMIN D DEFICIENCY 06/16/2010 OSMAN ALVAREZ APRN T 26 8.9 VITAMIN D DEFICIENCY 06/16/2010 ROLON DO, EMIL K 268.9 VITAMIN D DEFICIENCY 06/16/2010 ROLON DO, EMIL K 268.9 VITAMIN D DEFICIENCY 06/16/2010 ROLON DO, EMIL K 268.9 VITAMIN D DEFICIENCY 06/16/2010 OSMAN ALVAREZ APRN T 26 8.9 VITAMIN D DEFICIENCY 06/16/2010 ROLON DO, EMIL K 268.9 VITAMIN D DEFICIENCY 06/16/2010 ROLON DO, EMIL K 268.9 VITAMIN D DEFICIENCY 06/16/2010 EMERY LOBATO APRNRICIA R 268.9 VITAMIN D DEFICIENCY 06/16/2010 SHERI BAUMANN ANSON L 268 .9 VITAMIN D DEFICIENCY 06/16/2010 EMERY LOBATO APRNRICIA R 268.9 VITAMIN D DEFICIENCY 06/16/2010 CARMEN GIBBS MD N 268 .9 VITAMIN D DEFICIENCY 06/16/2010 ROLON DO, EMIL K 268.9 VITAMIN D DEFICIENCY 06/16/2010 MICHELINE BAUMANN RAQUEL R 268.9 VITAMIN D DEFICIENCY 06/16/2010 CARMEN GIBBS MD N 268 .9 VITAMIN D DEFICIENCY 06/16/2010 CRISTINO LOBATO APRNIA R 268.9 VITAMIN D DEFICIENCY 06/16/2010 MICHELINE BAUMANN RAQUEL R 268.9 VITAMIN D DEFICIENCY 06/16/2010 CARMEN GIBBS MD N 268 .9 VITAMIN D DEFICIENCY 06/16/2010 LETICIA WADE APRNA L 268 .9 VITAMIN D DEFICIENCY 06/16/2010 SHERI BAUMANN ANSON L 268 .9 VITAMIN D DEFICIENCY 06/16/2010 MICHELINE BAUMANN RAQUEL R 268.9 VITAMIN D DEFICIENCY 06/16/2010 ELLIOT MORENO DDS 26 8.9 VITAMIN D DEFICIENCY 06/16/2010 CARMEN GIBBS MD 268 .9 VITAMIN D DEFICIENCY 06/16/2010 EMIL ROLON DO K 268.9 VITAMIN D DEFICIENCY 06/16/2010 ANSON WADE APRN 268 .9 VITAMIN D DEFICIENCY 06/16/2010 CARMEN GIBBS MD N 268 .9 VITAMIN D DEFICIENCY 06/16/2010 CARMEN GIBBS MD 268 .9 VITAMIN D DEFICIENCY 06/16/2010 ANSON WADE APRN 268 .9 VITAMIN D DEFICIENCY 06/16/2010 EMIL ROLON DO K 268.9 VITAMIN D DEFICIENCY 06/20/2010 REGINO BOYD DDS 783.1 Recent Weight Gain (___ Lbs) [reported] 06/20/2010 783.1 Rece nt Weight Gain (___ Lbs) [reported] 06/20/2010 BRENNA LOBATO APRN 783.1 Recent Weight Gain (___ Lbs) [reported] 06/20/2010 EMIL ROLON DO 783.1 Recent Weight Gain (___ Lbs) [reported] 06/20/2010 ELLY DOUGLAS MD 783.1 Recent Weight Gain (___ Lbs) [reported] 06/20/2010 CARMEN GIBBS MD 783 .1 Recent Weight Gain (___ Lbs) [reported] 06/20/2010 CARMEN GIBBS MD 783 .1 Recent Weight Gain (___ Lbs) [reported] 06/20/2010 RAQUEL LOPEZ DDS 783.1 Recent Weight Gain (___ Lbs) [reported] 06/20/2010 EMIL ROLON DO 783.1 Recent Weight Gain (___ Lbs) [reported] 06/20/2010 CARMEN GIBBS MD 783 .1 Recent Weight Gain (___ Lbs) [reported] 06/20/2010 CARMEN GIBBS MD 783 .1 Recent Weight Gain (___ Lbs) [reported] 06/20/2010 OSMAN ALVAREZ APRN 78 3.1 Recent Weight Gain (___ Lbs) [reported] 06/20/2010 EMIL ROLON DO 783.1 Recent Weight Gain (___ Lbs) [reported] 06/20/2010 ROLON SUDHIRA K 783.1 Recent Weight Gain (___ Lbs) [reported] 06/20/2010 GONZALES GAMINGSUDHIRA K 783.1 Recent Weight Gain (___ Lbs) [reported] 06/20/2010 OSMAN ALVAREZ APRN 78 3.1 Recent Weight Gain (___ Lbs) [reported] 06/20/2010 GONZALES GAMINGSUDHIRA K 783.1 Recent Weight Gain (___ Lbs) [reported] 06/20/2010 GONZALES GAMING EMIL K 783.1 Recent Weight Gain (___ Lbs) [reported] 06/20/2010 BRENNA LOBATO APRN R 783.1 Recent Weight Gain (___ Lbs) [reported] 06/20/2010 ANSON WADE APRN L 783 .1 Recent Weight Gain (___ Lbs) [reported] 06/20/2010 BRENNA LOBATO APRN R 783.1 Recent Weight Gain (___ Lbs) [reported] 06/20/2010 CARMEN GIBBS MD 783 .1 Recent Weight Gain (___ Lbs) [reported] 06/20/2010 EMIL ROLON DO K 783.1 Recent Weight Gain (___ Lbs) [reported] 06/20/2010 RAQUEL TOBIAS APRN R 783.1 Recent Weight Gain (___ Lbs) [reported] 06/20/2010 CARMEN GIBBS MD 783 .1 Recent Weight Gain (___ Lbs) [reported] 06/20/2010 BRENNA LOBATO APRN R 783.1 Recent Weight Gain (___ Lbs) [reported] 06/20/2010 MALACHI TOBIAS APRNINA R 783.1 Recent Weight Gain (___ Lbs) [reported] 06/20/2010 CARMEN GIBBS MD N 783 .1 Recent Weight Gain (___ Lbs) [reported] 06/20/2010 ANSON WADE APRN L 783 .1 Recent Weight Gain (___ Lbs) [reported] 06/20/2010 ANSON WADE APRN L 783 .1 Recent Weight Gain (___ Lbs) [reported] 06/20/2010 RAQUEL TOBIAS APRN R 783.1 Recent Weight Gain (___ Lbs) [reported] 06/20/2010 ELLIOT MORENO DDS 78 3.1 Recent Weight Gain (___ Lbs) [reported] 06/20/2010 CARMEN GIBBS MD 783 .1 Recent Weight Gain (___ Lbs) [reported] 06/20/2010 EMIL ROLON DO 783.1 Recent Weight Gain (___ Lbs) [reported] 06/20/2010 ANSON WADE APRN 783 .1 Recent Weight Gain (___ Lbs) [reported] 06/20/2010 CARMNE GIBBS MD 783 .1 Recent Weight Gain (___ Lbs) [reported] 06/20/2010 CARMEN GIBBS MD 783 .1 Recent Weight Gain (___ Lbs) [reported] 06/20/2010 ANSON WADE APRN L 783 .1 Recent Weight Gain (___ Lbs) [reported] 06/20/2010 EMIL ROLON DO 783.1 Recent Weight Gain (___ Lbs) [reported] 07/02/2010 Ot 840.9 SPRA IN SHOULDER/ARM NOS 07/02/2010 Ot 959.2 SHLD R/UPPER ARM INJ NOS 07/02/2010 Ot E000.8 OTH ER EXTERNAL CAUSE STATUS 07/02/2010 Ot E019.0 ACT IVITIES INVOLVING WALKING AN ANIMAL 07/02/2010 Ot E849.0 ACC IDENT IN HOME 07/02/2010 Ot E888.9 FAL L NOS 07/31/2010 Ot 789.06 ABD OMINAL PAIN, EPIGASTRIC 08/03/2010 REGINO BOYD DDS 786.05 Shortness Of Breath 08/03/2010 786.05 Kiarra rtness Of Breath 08/03/2010 BRENNA LOBATO APRN 786.05 Shortness Of Breath 08/03/2010 EMIL ROLON DO 786.05 Shortness Of Breath 08/03/2010 ELLY DOUGLAS MD 786.0 5 Shortness Of Breath 08/03/2010 CARMEN GIBBS MD 786 .05 Shortness Of Breath 08/03/2010 CARMEN GIBBS MD 786 .05 Shortness Of Breath 08/03/2010 RAQUEL LOPEZ DDS 786.05 Shortness Of Breath 08/03/2010 ROLON DO, EMIL K 786.05 Shortness Of Breath 08/03/2010 CARMEN GIBBS MD 786 .05 Shortness Of Breath 08/03/2010 CARMEN GIBBS MD 786 .05 Shortness Of Breath 08/03/2010 OSMAN ALVAREZ APRN 786.05 Shortness Of Breath 08/03/2010 ROLON DO, EMIL K 786.05 Shortness Of Breath 08/03/2010 ROLON DO, EMIL K 786.05 Shortness Of Breath 08/03/2010 ROLON DO, EMIL K 786.05 Shortness Of Breath 08/03/2010 OSMAN ALVAREZ APRN 786.05 Shortness Of Breath 08/03/2010 ROLON DO, EMIL K 786.05 Shortness Of Breath 08/03/2010 ROLON DO, EMIL K 786.05 Shortness Of Breath 08/03/2010 CRISTINO LOBATO APRNIA R 786.05 Shortness Of Breath 08/03/2010 LETICIA WADE APRNA L 786 .05 Shortness Of Breath 08/03/2010 CRISTINO LOBATO APRNIA R 786.05 Shortness Of Breath 08/03/2010 CARMEN GIBBS MD 786 .05 Shortness Of Breath 08/03/2010 ROLON DO, EMIL K 786.05 Shortness Of Breath 08/03/2010 MALACHI TOBIAS APRNINA R 786.05 Shortness Of Breath 08/03/2010 CARMEN GIBBS MD 786 .05 Shortness Of Breath 08/03/2010 CRISTINO LOBATO APRNIA R 786.05 Shortness Of Breath 08/03/2010 MICHELINE BAUMANN RAQUEL R 786.05 Shortness Of Breath 08/03/2010 CARMEN GIBBS MD 786 .05 Shortness Of Breath 08/03/2010 LETICIA WADE APRNA L 786 .05 Shortness Of Breath 08/03/2010 CINTHIA WADE APRNWNYA L 786 .05 Shortness Of Breath 08/03/2010 MALACHI TOBIAS APRNINA R 786.05 Shortness Of Breath 08/03/2010 ELLIOT MORENO DDS 786.05 Shortness Of Breath 08/03/2010 CARMEN GIBBS MD N 786 .05 Shortness Of Breath 08/03/2010 ROLON DO EMIL K 786.05 Shortness Of Breath 08/03/2010 ANSON WADE APRN L 786 .05 Shortness Of Breath 08/03/2010 CARMEN GIBBS MD N 786 .05 Shortness Of Breath 08/03/2010 CARMEN GIBBS MD 786 .05 Shortness Of Breath 08/03/2010 ANSON WADE APRN L 786 .05 Shortness Of Breath 08/03/2010 ROLON DOSUDHIRA K 786.05 Shortness Of Breath 08/22/2010 MUOGHALU STEFFANYS, REGINO N 272.4 HYPERLIPIDEMIA 08/22/2010 MUOGHALU MAYE REGINO N 706.8 Xerosis 08/22/2010 272.4 HYPE RLIPIDEMIA 08/22/2010 706.8 Xerosis 08/22/2010 EMERY LOBATO APRNRICIA R 272.4 HYPERLIPIDEMIA 08/22/2010 EMERY LOBATO APRNRICIA R 706.8 Xerosis 08/22/2010 ROLON DO, EMIL K 272.4 HYPERLIPIDEMIA 08/22/2010 ROLON DO, EMIL K 706.8 Xerosis 08/22/2010 ELLY DOUGLAS MD 272.4 HYPERLIPIDEMIA 08/22/2010 ELLY DOUGLAS MD 706.8 Xerosis 08/22/2010 CARMEN GIBBS MD N 272 .4 HYPERLIPIDEMIA 08/22/2010 CARMEN GIBBS MD N 706 .8 Xerosis 08/22/2010 CARMEN GIBBS MD N 272 .4 HYPERLIPIDEMIA 08/22/2010 CARMEN GIBBS MD N 706 .8 Xerosis 08/22/2010 JESSICA DDS, RAQUEL Galdamez 272.4 HYPERLIPIDEMIA 08/22/2010 JESSICA VILLAVICENCIO, RAQUEL Galdamez 706.8 Xerosis 08/22/2010 ROLON DO, EMIL K 272.4 HYPERLIPIDEMIA 08/22/2010 ROLON DO, EMIL K 706.8 Xerosis 08/22/2010 CARMEN GIBBS MD N 272 .4 HYPERLIPIDEMIA 08/22/2010 CARMEN GIBBS MD N 706 .8 Xerosis 08/22/2010 CARMEN GIBBS MD N 272 .4 HYPERLIPIDEMIA 08/22/2010 CARMEN GIBBS MD N 706 .8 Xerosis 08/22/2010 OSMAN ALVAREZ APRN T 27 2.4 HYPERLIPIDEMIA 08/22/2010 OSMAN ALVAREZ APRN T 70 6.8 Xerosis 08/22/2010 ROLON DO, EMIL K 272.4 HYPERLIPIDEMIA 08/22/2010 ROLON DO, EMIL K 706.8 Xerosis 08/22/2010 ROLON DO, EMIL K 272.4 HYPERLIPIDEMIA 08/22/2010 ROLON DO, EMIL K 706.8 Xerosis 08/22/2010 ROLON DO, EMIL K 272.4 HYPERLIPIDEMIA 08/22/2010 ROLON DO, EMIL K 706.8 Xerosis 08/22/2010 OSMAN ALVAREZ APRN 27 2.4 HYPERLIPIDEMIA 08/22/2010 OSMAN ALVAREZ APRN 70 6.8 Xerosis 08/22/2010 ROLON DO, EMIL K 272.4 HYPERLIPIDEMIA 08/22/2010 ROLON DO, EMIL K 706.8 Xerosis 08/22/2010 ROLON DO, EMIL K 272.4 HYPERLIPIDEMIA 08/22/2010 ROLON DO, EMIL K 706.8 Xerosis 08/22/2010 LUIS ALFREDO BAUMANN, BRENNA R 272.4 HYPERLIPIDEMIA 08/22/2010 LUIS ALFREDO ASSURANCE ENGINEER, BRENNA R 706.8 Xerosis 08/22/2010 SHERI BAUMANN, ANSON L 272 .4 HYPERLIPIDEMIA 08/22/2010 MADL ASSURANCE ENGINEER, ANSON L 706 .8 Xerosis 08/22/2010 LUIS ALFREDO BAUMANN, BRENNA R 272.4 HYPERLIPIDEMIA 08/22/2010 LUIS ALFREDO BAUMANN, BRENNA R 706.8 Xerosis 08/22/2010 CARMEN GIBBS MD N 272 .4 HYPERLIPIDEMIA 08/22/2010 CARMEN GIBBS MD N 706 .8 Xerosis 08/22/2010 ROLON DO, EMIL K 272.4 HYPERLIPIDEMIA 08/22/2010 ROLON DO, EMIL K 706.8 Xerosis 08/22/2010 MICHELINE BAUMANN, RAQUEL R 272.4 HYPERLIPIDEMIA 08/22/2010 MICHELINE BAUMANN, RAQUEL R 706.8 Xerosis 08/22/2010 CARMEN GIBBS MD N 272 .4 HYPERLIPIDEMIA 08/22/2010 CARMEN GIBBS MD N 706 .8 Xerosis 08/22/2010 LOBATO ASSURANCE ENGINEER, BRENNA R 272.4 HYPERLIPIDEMIA 08/22/2010 LOBATO ASSURANCE ENGINEER, BRENNA R 706.8 Xerosis 08/22/2010 MICHELINE ASSURANCE ENGINEER, RAQUEL R 272.4 HYPERLIPIDEMIA 08/22/2010 MICHELINE ASSURANCE ENGINEER, RAQUEL R 706.8 Xerosis 08/22/2010 CARMEN GIBBS MD N 272 .4 HYPERLIPIDEMIA 08/22/2010 CARMEN GIBBS MD N 706 .8 Xerosis 08/22/2010 MADL ASSURANCE ENGINEER, ANSON L 272 .4 HYPERLIPIDEMIA 08/22/2010 MADL ASSURANCE ENGINEER, ANSON L 706 .8 Xerosis 08/22/2010 MADL ASSURANCE ENGINEER, ANSON L 272 .4 HYPERLIPIDEMIA 08/22/2010 MADL ASSURANCE ENGINEER, ANSON L 706 .8 Xerosis 08/22/2010 MICHELINE ASSURANCE ENGINEER, RAQUEL R 272.4 HYPERLIPIDEMIA 08/22/2010 MICHELINE ASSURANCE ENGINEER, RAQUEL R 706.8 Xerosis 08/22/2010 WHITE DDS, ELLIOT J 27 2.4 HYPERLIPIDEMIA 08/22/2010 WHITE DDS, ELLIOT J 70 6.8 Xerosis 08/22/2010 CARMEN GIBBS MD N 272 .4 HYPERLIPIDEMIA 08/22/2010 CARMEN GIBBS MD N 706 .8 Xerosis 08/22/2010 ROLON DO, EMIL K 272.4 HYPERLIPIDEMIA 08/22/2010 ROLON DO, EMIL K 706.8 Xerosis 08/22/2010 MADL ASSURANCE ENGINEER, ANSON L 272 .4 HYPERLIPIDEMIA 08/22/2010 MADBenji ASSURANCE ENGINEER, ANSON L 706 .8 Xerosis 08/22/2010 CARMEN GIBBS MD N 272 .4 HYPERLIPIDEMIA 08/22/2010 CARMEN GIBBS MD N 706 .8 Xerosis 08/22/2010 CARMEN GIBBS MD N 272 .4 HYPERLIPIDEMIA 08/22/2010 CARMEN GIBBS MD N 706 .8 Xerosis 08/22/2010 MADL ASSURANCE ENGINEER, ANSON L 272 .4 HYPERLIPIDEMIA 08/22/2010 MADL ASSURANCE ENGINEER, ANSON L 706 .8 Xerosis 08/22/2010 ROLON DO, EMIL K 272.4 HYPERLIPIDEMIA 08/22/2010 ROLON DO, EMIL K 706.8 Xerosis 08/30/2010 Ot 530.81 ESO PHAGEAL REFLUX 08/30/2010 Ot 535.50 UNS P GASTRITIS GASTRODUODENITIS W/O ME 08/30/2010 Ot 789.06 ABD OMINAL PAIN, EPIGASTRIC 09/06/2010 Ot 577.0 ACUT E PANCREATITIS 09/06/2010 Ot 789.09 ABD OMINAL PAIN, OTHER SPECIFIED SITE 09/16/2010 Ot 276.51 DEH YDRATION 09/16/2010 Ot 780.4 DIZZ INESS AND GIDDINESS 09/16/2010 Ot 784.0 HEAD ACHE 09/20/2010 MUOGHALU MAYE, REGINO Christie 787.01 Nausea With Vomiting 09/20/2010 787.01 Stefania sea With Vomiting 09/20/2010 BRENNA LOBATO APRN 787.01 Nausea With Vomiting 09/20/2010 GONZALES GAMING, EMIL K 787.01 Nausea With Vomiting 09/20/2010 ELLY DOUGLAS MD 787.0 1 Nausea With Vomiting 09/20/2010 CARMEN GIBBS MD 787 .01 Nausea With Vomiting 09/20/2010 CARMEN GIBBS MD 787 .01 Nausea With Vomiting 09/20/2010 RAQUEL LOPEZ DDS 787.01 Nausea With Vomiting 09/20/2010 ROLON DO, EMIL K 787.01 Nausea With Vomiting 09/20/2010 CARMEN GIBBS MD 787 .01 Nausea With Vomiting 09/20/2010 CARMEN GIBBS MD 787 .01 Nausea With Vomiting 09/20/2010 OSMAN ALVAREZ APRN [...] Nausea With Vomiting 09/20/2010 BRENNA LOBATO APRN 787.01 Nausea With Vomiting 09/20/2010 ANSON WADE APRN 787 .01 Nausea With Vomiting 09/20/2010 BRENNA LOBATO APRN R 787.01 Nausea With Vomiting 09/20/2010 CARMEN GIBBS MD 787 .01 Nausea With Vomiting 09/20/2010 EMIL ROLON DO K 787.01 Nausea With Vomiting 09/20/2010 RAQUEL TOBIAS APRN R 787.01 Nausea With Vomiting 09/20/2010 CARMEN GIBBS MD 787 .01 Nausea With Vomiting 09/20/2010 BRENNA LOBATO APRN R 787.01 Nausea With Vomiting 09/20/2010 MALACHI TOBIAS APRNINA R 787.01 Nausea With Vomiting 09/20/2010 CARMEN GIBBS MD 787 .01 Nausea With Vomiting 09/20/2010 ANSON WADE APRN L 787 .01 Nausea With Vomiting 09/20/2010 ANSON WADE APRN L 787 .01 Nausea With Vomiting 09/20/2010 RAQUEL TOBIAS APRN R 787.01 Nausea With Vomiting 09/20/2010 ELLIOT MORENO DDS 787.01 Nausea With Vomiting 09/20/2010 CARMEN GIBBS MD 787 .01 Nausea With Vomiting 09/20/2010 EMIL ROLON DO K 787.01 Nausea With Vomiting 09/20/2010 ANSON WADE APRN L 787 .01 Nausea With Vomiting 09/20/2010 CARMEN GIBBS MD N 787 .01 Nausea With Vomiting 09/20/2010 CARMEN GIBBS MD 787 .01 Nausea With Vomiting 09/20/2010 ANSON WADE APRN L 787 .01 Nausea With Vomiting 09/20/2010 EMIL ROLON DO K 787.01 Nausea With Vomiting 09/20/2010 Ot 558.9 TORI NF GASTROENTERIT NEC 09/20/2010 Ot 789.09 ABD OMINAL PAIN, OTHER SPECIFIED SITE 09/23/2010 Ot 536.2 PERS ISTENT VOMITING 09/23/2010 Ot 577.1 PROJECT ANALYST DAHLIA PANCREATITIS 09/23/2010 Ot V58.69 OT MED,LT,CURRENT USE 09/28/2010 REGINO BOYD DDS 577.1 CHRONIC PANCREATITIS 09/28/2010 577.1 PROJECT ANALYST DAHLIA PANCREATITIS 09/28/2010 LOBATO ASSURANCE ENGINEER, BRENNA R 577.1 CHRONIC PANCREATITIS 09/28/2010 ROLON DO, EMIL K 577.1 CHRONIC PANCREATITIS 09/28/2010 ELLY DOUGLAS MD 577.1 CHRONIC PANCREATITIS 09/28/2010 CARMEN GIBBS MD 577 .1 CHRONIC PANCREATITIS 09/28/2010 CARMEN GIBBS MD 577 .1 CHRONIC PANCREATITIS 09/28/2010 RAQUEL LOPEZ DDS 577.1 CHRONIC PANCREATITIS 09/28/2010 ROLON DO, EMIL K 577.1 CHRONIC PANCREATITIS 09/28/2010 CARMEN GIBBS MD 577 .1 CHRONIC PANCREATITIS 09/28/2010 CARMEN GIBBS MD 577 .1 CHRONIC PANCREATITIS 09/28/2010 OSMAN ALVAREZ APRN 57 7.1 CHRONIC PANCREATITIS 09/28/2010 ROLON DO, EMIL K 577.1 CHRONIC PANCREATITIS 09/28/2010 ROLON DO, EMIL K 577.1 CHRONIC PANCREATITIS 09/28/2010 ROLON DO, EMLI K 577.1 CHRONIC PANCREATITIS 09/28/2010 OSMAN ALVAREZ APRN 57 7.1 CHRONIC PANCREATITIS 09/28/2010 ROLON DO, EMIL K 577.1 CHRONIC PANCREATITIS 09/28/2010 ROLON DO, EMIL K 577.1 CHRONIC PANCREATITIS 09/28/2010 EMERY LOBATO APRNRICIA R 577.1 CHRONIC PANCREATITIS 09/28/2010 SHERI BAUMANN ANSON L 577 .1 CHRONIC PANCREATITIS 09/28/2010 LUIS ALFREDO BAUMANN BRENNA R 577.1 CHRONIC PANCREATITIS 09/28/2010 CARMEN GIBBS MD N 577 .1 CHRONIC PANCREATITIS 09/28/2010 ROLON DO, EMIL K 577.1 CHRONIC PANCREATITIS 09/28/2010 MICHELINE BAUMANN, RAQUEL R 577.1 CHRONIC PANCREATITIS 09/28/2010 CARMEN GIBBS MD N 577 .1 CHRONIC PANCREATITIS 09/28/2010 EMERY LOBATO APRNRICIA R 577.1 CHRONIC PANCREATITIS 09/28/2010 MICHELINE BAUMANN RAQUEL R 577.1 CHRONIC PANCREATITIS 09/28/2010 CARMEN GIBBS MD N 577 .1 CHRONIC PANCREATITIS 09/28/2010 CINTHIA WADE APRNWNYA L 577 .1 CHRONIC PANCREATITIS 09/28/2010 SHERI BAUMANN ANSON L 577 .1 CHRONIC PANCREATITIS 09/28/2010 RAQUEL TOBIAS APRN R 577.1 CHRONIC PANCREATITIS 09/28/2010 JOSH VILLAVICENCIO, ELLIOT Alston 57 7.1 CHRONIC PANCREATITIS 09/28/2010 CARMEN GIBBS MD 577 .1 CHRONIC PANCREATITIS 09/28/2010 EMIL ROLON DO 577.1 CHRONIC PANCREATITIS 09/28/2010 ANSON WADE APRN 577 .1 CHRONIC PANCREATITIS 09/28/2010 CARMEN GIBBS MD 577 .1 CHRONIC PANCREATITIS 09/28/2010 CARMEN GIBBS MD 577 .1 CHRONIC PANCREATITIS 09/28/2010 ANSON WADE APRN 577 .1 CHRONIC PANCREATITIS 09/28/2010 EMIL ROLON DO 577.1 CHRONIC PANCREATITIS 09/29/[address] PAIN NOS 09/29/2010 Ot 786.52 PONCHO NFUL RESPIRATION 10/01/2010 Ot 787.03 VOM ITING ALONE 10/01/2010 Ot 789.06 ABD OMINAL PAIN, EPIGASTRIC 10/04/2010 DEB VILLAVICENCIO, REGINO Christie 780.4 Dizziness And Vertigo 10/04/2010 780.4 Dizz iness And Vertigo 10/04/2010 BRENNA LOBATO APRN 780.4 Dizziness And Vertigo 10/04/2010 EMIL ROLON DO 780.4 Dizziness And Vertigo 10/04/2010 ELLY DOUGLAS MD 780.4 Dizziness And Vertigo 10/04/2010 CARMEN GIBBS MD 780 .4 Dizziness And Vertigo 10/04/2010 CARMEN GIBBS MD 780 .4 Dizziness And Vertigo 10/04/2010 RAQUEL LOPEZ DDS 780.4 Dizziness And Vertigo 10/04/2010 EMIL ROLON DO 780.4 Dizziness And Vertigo 10/04/2010 CARMEN GIBBS MD 780 .4 Dizziness And Vertigo 10/04/2010 CARMEN GIBBS MD 780 .4 Dizziness And Vertigo 10/04/2010 OSMAN ALVAREZ APRN 78 0.4 Dizziness And Vertigo 10/04/2010 EMIL ROLON DO K 780.4 Dizziness And Vertigo 10/04/2010 EMIL ROLON DO 780.4 Dizziness And Vertigo 10/04/2010 ROLON DO, EMIL K 780.4 Dizziness And Vertigo 10/04/2010 OSMAN ALVAREZ APRN T 78 0.4 Dizziness And Vertigo 10/04/2010 ROLON DO, EMIL K 780.4 Dizziness And Vertigo 10/04/2010 ROLON DO, EMIL K 780.4 Dizziness And Vertigo 10/04/2010 LUIS ALFREDO BAUMANN BRENNA R 780.4 Dizziness And Vertigo 10/04/2010 MADL ASSURANCE ENGINEER, ANSON L 780 .4 Dizziness And Vertigo 10/04/2010 LUIS ALFREDO BAUMANN BRENNA R 780.4 Dizziness And Vertigo 10/04/2010 CARMEN GIBBS MD 780 .4 Dizziness And Vertigo 10/04/2010 ROLON DO, EMIL K 780.4 Dizziness And Vertigo 10/04/2010 MICHELINE BAUMANN RAQUEL R 780.4 Dizziness And Vertigo 10/04/2010 CARMEN GIBBS MD 780 .4 Dizziness And Vertigo 10/04/2010 CRISTINO LOBATO APRNIA R 780.4 Dizziness And Vertigo 10/04/2010 MICHELINE BAUMANN RAQUEL R 780.4 Dizziness And Vertigo 10/04/2010 CARMEN GIBBS MD 780 .4 Dizziness And Vertigo 10/04/2010 LETICIA WADE APRNA L 780 .4 Dizziness And Vertigo 10/04/2010 SHERI BAUMANN ANSON L 780 .4 Dizziness And Vertigo 10/04/2010 MICHELINE BAUMANN RAQUEL R 780.4 Dizziness And Vertigo 10/04/2010 WHITE DDS, ELLIOT J 78 0.4 Dizziness And Vertigo 10/04/2010 CARMEN GIBBS MD 780 .4 Dizziness And Vertigo 10/04/2010 GONZALES GAMING EMIL K 780.4 Dizziness And Vertigo 10/04/2010 SHERI BAUMANN ANSON L 780 .4 Dizziness And Vertigo 10/04/2010 CARMEN GIBBS MD 780 .4 Dizziness And Vertigo 10/04/2010 CARMEN GIBBS MD 780 .4 Dizziness And Vertigo 10/04/2010 CINTHIA WADE APRNWNYA L 780 .4 Dizziness And Vertigo 10/04/2010 ROLON DO EMIL K 780.4 Dizziness And Vertigo 10/07/2010 Ot 780.4 DIZZ INESS AND GIDDINESS 10/25/2010 DEB VILLAVICENCIO, REGINO N 782.3 Edema 10/25/2010 782.3 Edema 10/25/2010 BRENNA LOBATO APRN R 782.3 Edema 10/25/2010 ROLON DO, EMIL K 782.3 Edema 10/25/2010 ELLY DOUGLAS MD 782.3 Edema 10/25/2010 CARMEN GIBBS MD N 782 .3 Edema 10/25/2010 CARMEN GIBBS MD N 782 .3 Edema 10/25/2010 JESSICA VILLAVICENCIO, RAQUEL Galdamez 782.3 Edema 10/25/2010 ROLON DO, EMIL K 782.3 Edema 10/25/2010 CARMEN GIBBS MD N 782 .3 Edema 10/25/2010 CARMEN GIBBS MD N 782 .3 Edema 10/25/2010 OSMAN ALVAREZ APRN 78 2.3 Edema 10/25/2010 ROLON DO, EMIL K 782.3 Edema 10/25/2010 ROLON DO, EMIL K 782.3 Edema 10/25/2010 ROLON DO, EMIL K 782.3 Edema 10/25/2010 OSMAN ALVAREZ APRN T 78 2.3 Edema 10/25/2010 ROLON DO, EMIL K 782.3 Edema 10/25/2010 ROLON DO, EMIL K 782.3 Edema 10/25/2010 CRISTINO LOBATO APRNIA R 782.3 Edema 10/25/2010 LETICIA WADE APRNA L 782 .3 Edema 10/25/2010 BRENNA LOBATO APRN R 782.3 Edema 10/25/2010 CARMEN GIBBS MD N 782 .3 Edema 10/25/2010 ROLON DO, EMIL K 782.3 Edema 10/25/2010 MICHELINE BAUMANN RAQUEL R 782.3 Edema 10/25/2010 CARMEN GIBBS MD N 782 .3 Edema 10/25/2010 BRENNA LOBATO APRN R 782.3 Edema 10/25/2010 MICHELINE BAUMANN RAQUEL R 782.3 Edema 10/25/2010 CARMEN GIBBS MD N 782 .3 Edema 10/25/2010 ANSON WADE APRN L 782 .3 Edema 10/25/2010 MADBenji ASSURANCE ENGINEER, ANSON L 782 .3 Edema 10/25/2010 MICHELINE BAUMANN, RAQUEL R 782.3 Edema 10/25/2010 WHITE DDS, ELLIOT J 78 2.3 Edema 10/25/2010 CARMEN GIBBS MD N 782 .3 Edema 10/25/2010 ROLON , EMIL K 782.3 Edema 10/25/2010 MADLETICIA Leblanc APRNA L 782 .3 Edema 10/25/2010 CARMEN GIBBS MD N 782 .3 Edema 10/25/2010 CARMEN GIBBS MD N 782 .3 Edema 10/25/2010 MADL ASSURANCE ENGINEER, ANSON L 782 .3 Edema 10/25/2010 ROLON DO, EMIL K 782.3 Edema 11/13/2010 Ot 525.9 DENT AL DISORDER NOS 11/16/2010 Ot 525.9 DENT AL DISORDER NOS 12/08/2010 Ot 786.52 PONCHO NFUL RESPIRATION 12/08/2010 Ot 789.06 ABD OMINAL PAIN, EPIGASTRIC 12/27/2010 MUOGHALU DDS, REGINO N 599.70 Hematuria Unspecified 12/27/2010 MUOGHALU DDS, REGINO N 789.01 Abdominal Pain Right Upper Quadrant 12/27/2010 599.70 Hem aturia Unspecified 12/27/2010 789.01 Abd ominal Pain Right Upper Quadrant 12/27/2010 CRISTINO LOBATO APRNIA R 599.70 Hematuria Unspecified 12/27/2010 BRENNA LOBATO APRN R 789.01 Abdominal Pain Right Upper Quadrant 12/27/2010 GONZALES GAMING EMIL K 599.70 Hematuria Unspecified 12/27/2010 ROLON DO, EMIL K 789.01 Abdominal Pain Right Upper Quadrant 12/27/2010 ELLY DOUGLAS MD 599.7 0 Hematuria Unspecified 12/27/2010 ELLY DOUGLAS MD 789.0 1 Abdominal Pain Right Upper Quadrant 12/27/2010 CARMEN GIBBS MD N 599 .70 Hematuria Unspecified 12/27/2010 CARMEN GIBBS MD N 789 .01 Abdominal Pain Right Upper Quadrant 12/27/2010 CARMEN GIBBS MD N 599 .70 Hematuria Unspecified 12/27/2010 CARMEN GIBBS MD N 789 .01 Abdominal Pain Right Upper Quadrant 12/27/2010 RAQUEL LOPEZ DDS 599.70 Hematuria Unspecified 12/27/2010 RAQUEL LOPEZ DDS 789.01 Abdominal Pain Right Upper Quadrant 12/27/2010 ROLON DO, EMIL K 599.70 Hematuria Unspecified 12/27/2010 ROLON DO, EMIL K 789.01 Abdominal Pain Right Upper Quadrant 12/27/2010 CARMEN GIBBS MD N 599 .70 Hematuria Unspecified 12/27/2010 CARMEN GIBBS MD N 789 .01 Abdominal Pain Right Upper Quadrant 12/27/2010 CARMEN GIBBS MD N 599 .70 Hematuria Unspecified 12/27/2010 CARMEN GIBBS MD N 789 .01 Abdominal Pain Right Upper Quadrant 12/27/2010 OSMAN ALVAREZ APRN 599.70 Hematuria Unspecified 12/27/2010 OSMAN ALVAREZ APRN [...] Right Upper Quadrant 12/27/2010 OSMAN ALVAREZ APRN 599.70 Hematuria Unspecified 12/27/2010 OSMAN ALVAREZ APRN [...] Abdominal Pain Right Upper Quadrant 12/27/2010 MADL ASSURANCE ENGINEER, ANSON L 599 .70 Hematuria Unspecified 12/27/2010 MADBenji YUN, ANSON L 789 .01 Abdominal Pain Right Upper Quadrant 12/27/2010 EMERY LOBATO APRNRICIA R 599.70 Hematuria Unspecified 12/27/2010 LUIS ALFREDO BAUMANN, BRENNA R 789.01 Abdominal Pain Right Upper Quadrant 12/27/2010 CARMEN GIBBS MD N 599 .70 Hematuria Unspecified 12/27/2010 CARMEN GIBBS MD N 789 .01 Abdominal Pain Right Upper Quadrant 12/27/2010 ROLON DO, EMIL K 599.70 Hematuria Unspecified 12/27/2010 ROLON DO, EMIL K 789.01 Abdominal Pain Right Upper Quadrant 12/27/2010 MICHELINE BAUMANN RAQUEL R 599.70 Hematuria Unspecified 12/27/2010 MICHELINE BAUMANN RAQUEL R 789.01 Abdominal Pain Right Upper Quadrant 12/27/2010 CARMEN GIBBS MD N 599 .70 Hematuria Unspecified 12/27/2010 CARMEN GIBBS MD N 789 .01 Abdominal Pain Right Upper Quadrant 12/27/2010 EMERY LOBATO APRNRICIA R 599.70 Hematuria Unspecified 12/27/2010 EMERY LOBATO APRNRICIA R 789.01 Abdominal Pain Right Upper Quadrant 12/27/2010 MICHELINE BAUMANN RAQUEL R 599.70 Hematuria Unspecified 12/27/2010 MICHELINE BAUMANN RAQUEL R 789.01 Abdominal Pain Right Upper Quadrant 12/27/2010 CARMEN GIBBS MD N 599 .70 Hematuria Unspecified 12/27/2010 CARMEN GIBBS MD N 789 .01 Abdominal Pain Right Upper Quadrant 12/27/2010 SHERI BAUMANN, ANSON L 599 .70 Hematuria Unspecified 12/27/2010 SHERI YUN, ANSON L 789 .01 Abdominal Pain Right Upper Quadrant 12/27/2010 SHERI BAUMANN, ANSON L 599 .70 Hematuria Unspecified 12/27/2010 SHERI ASSURANCE ENGINEER, ANSON L 789 .01 Abdominal Pain Right Upper Quadrant 12/27/2010 MICHELINE BAUMANN RAQUEL R 599.70 Hematuria Unspecified 12/27/2010 MICHELINE BAUMANN RAQUEL R 789.01 Abdominal Pain Right Upper Quadrant 12/27/2010 ELLIOT MORENO DDS J 599.70 Hematuria Unspecified 12/27/2010 WHITE STEFFANYS, ELLIOT J 789.01 Abdominal Pain Right Upper Quadrant 12/27/2010 CARMEN GIBBS MD N 599 .70 Hematuria Unspecified 12/27/2010 CARMEN GIBBS MD N 789 .01 Abdominal Pain Right Upper Quadrant 12/27/2010 ROLON DO, EMIL K 599.70 Hematuria Unspecified 12/27/2010 ROLON DO EMIL K 789.01 Abdominal Pain Right Upper Quadrant 12/27/2010 MADL ASSURANCE ENGINEER, ANSON L 599 .70 Hematuria Unspecified 12/27/2010 MADL ASSURANCE ENGINEER, ANSON L 789 .01 Abdominal Pain Right Upper Quadrant 12/27/2010 CARMEN GIBBS MD N 599 .70 Hematuria Unspecified 12/27/2010 CARMEN GIBBS MD N 789 .01 Abdominal Pain Right Upper Quadrant 12/27/2010 CARMEN GIBBS MD N 599 .70 Hematuria Unspecified 12/27/2010 CARMEN GIBBS MD N 789 .01 Abdominal Pain Right Upper Quadrant 12/27/2010 MADL ASSURANCE ENGINEER, ANSON L 599 .70 Hematuria Unspecified 12/27/2010 MADL ASSURANCE ENGINEER, ANSON L 789 .01 Abdominal Pain Right Upper Quadrant 12/27/2010 GONZALES GAMING EMIL K 599.70 Hematuria Unspecified 12/27/2010 GONZALES GAMING EMIL K 789.01 Abdominal Pain Right Upper Quadrant 12/30/2010 Ot 571.8 PROJECT ANALYST DAHLIA LIVER DIS NEC 12/30/2010 Ot 599.0 URIN TRACT INFECTION NOS 12/30/2010 Ot 789.00 ABD OMINAL PAIN, UNSPECIFIED SITE 01/10/[address] PAIN NOS 01/10/2011 Ot 786.52 PONCHO NFUL RESPIRATION 01/11/2011 REGINO BOYD DDS 786.52 Chest Wall Pain 01/11/[address] Wall Pain 01/11/2011 BRENNA LOBATO APRN 786.52 Chest Wall Pain 01/11/2011 GONZALES GAMING EMIL K 786.52 Chest Wall Pain 01/11/2011 ELLY DOUGLAS MD 786.5 2 Chest Wall Pain 01/11/2011 SAI MD, CARMEN N 786 .52 Chest Wall Pain 01/11/2011 CARMEN GIBBS MD 786 .52 Chest Wall Pain 01/11/2011 RAQUEL LOPEZ DDS 786.52 Chest Wall Pain 01/11/2011 ROLON DO, MEIL K 786.52 Chest Wall Pain 01/11/2011 CARMEN GIBBS MD 786 .52 Chest Wall Pain 01/11/2011 CARMEN GIBBS MD 786 .52 Chest Wall Pain 01/11/2011 OSMAN ALVAREZ APRN T 786.52 Chest Wall Pain 01/11/2011 ROLON DO, EMIL K 786.52 Chest Wall Pain 01/11/2011 ROLON DO, EMIL K 786.52 Chest Wall Pain 01/11/2011 ROLON DO, EMIL K 786.52 Chest Wall Pain 01/11/2011 OSMAN ALVAREZ APRN T 786.52 Chest Wall Pain 01/11/2011 ROLON DO, EMIL K 786.52 Chest Wall Pain 01/11/2011 ROLON DO, EMIL K 786.52 Chest Wall Pain 01/11/2011 LUIS ALFREDO BAUMANN, BERNNA R 786.52 Chest Wall Pain 01/11/2011 SHERI BAUMANN, ANSON L 786 .52 Chest Wall Pain 01/11/2011 LUIS ALFREDO BAUMANN, BRENNA R 786.52 Chest Wall Pain 01/11/2011 CARMEN GIBBS MD N 786 .52 Chest Wall Pain 01/11/2011 ROLON DO, EMIL K 786.52 Chest Wall Pain 01/11/2011 MICHELINE BAUMANN, RAQUEL R 786.52 Chest Wall Pain 01/11/2011 CARMEN GIBBS MD N 786 .52 Chest Wall Pain 01/11/2011 LUIS ALFREDO BAUMANN BRENNA R 786.52 Chest Wall Pain 01/11/2011 MICHELINE BAUMANN, RAQUEL R 786.52 Chest Wall Pain 01/11/2011 CARMEN GIBBS MD N 786 .52 Chest Wall Pain 01/11/2011 SHERI BAUMANN, ANSON L 786 .52 Chest Wall Pain 01/11/2011 SHERI BAUMANN, ANSON L 786 .52 Chest Wall Pain 01/11/2011 MICHELINE BAUMANN RAQUEL R 786.52 Chest Wall Pain 01/11/2011 ELLIOT MORENO DDS 786.52 Chest Wall Pain 01/11/2011 CARMEN GIBBS MD 786 .52 Chest Wall Pain 01/11/2011 EMIL ROLON DO 786.52 Chest Wall Pain 01/11/2011 ANSON WADE APRN 786 .52 Chest Wall Pain 01/11/2011 CARMEN GIBBS MD 786 .52 Chest Wall Pain 01/11/2011 CARMEN GIBBS MD 786 .52 Chest Wall Pain 01/11/2011 ANSON WADE APRN 786 .52 Chest Wall Pain 01/11/2011 EMIL ROLNO DO K 786.52 Chest Wall Pain 01/14/2011 Ot 338.29 OTH ER CHRONIC PAIN 01/14/2011 Ot 401.9 HYPE RTENSION NOS 01/14/2011 Ot 564.00 UNS PEC CONSTIPATION 01/14/[address] PAIN NOS 01/14/2011 Ot 789.00 ABD OMINAL PAIN, UNSPECIFIED SITE 01/15/2011 REGINO BOYD DDS 564.00 Constipation 01/15/2011 REGINO BOYD DDS 780.52 INSOMNIA UNSPECIFIED 01/15/2011 564.00 Con stipation 01/15/2011 780.52 INS OMNIA UNSPECIFIED 01/15/2011 CRISTINO LOBATO APRNIA R 564.00 Constipation 01/15/2011 CRISTINO LOBATO APRNIA R 780.52 INSOMNIA UNSPECIFIED 01/15/2011 SUDHIR ROLON DOA K 564.00 Constipation 01/15/2011 EMIL ROLON DO K 780.52 INSOMNIA UNSPECIFIED 01/15/2011 ELLY DOUGLAS MD 564.0 0 Constipation 01/15/2011 ELLY DOUGLAS MD 780.5 2 INSOMNIA UNSPECIFIED 01/15/2011 CARMEN GIBBS MD 564 .00 Constipation 01/15/2011 CARMEN GIBBS MD 780 .52 INSOMNIA UNSPECIFIED 01/15/2011 CARMEN GIBBS MD 564 .00 Constipation 01/15/2011 CARMEN GIBBS MD 780 .52 INSOMNIA UNSPECIFIED 01/15/2011 RAQUEL LOPEZ DDS 564.00 Constipation 01/15/2011 RAQUEL LOPEZ DDS 780.52 INSOMNIA UNSPECIFIED 01/15/2011 SUDHIR ROLON DOA K 564.00 Constipation 01/15/2011 ROLON DO, EMIL K 780.52 INSOMNIA UNSPECIFIED 01/15/2011 CARMEN GIBBS MD 564 .00 Constipation 01/15/2011 CARMEN GIBBS MD 780 .52 INSOMNIA UNSPECIFIED 01/15/2011 CARMEN GIBBS MD N 564 .00 Constipation 01/15/2011 CARMEN GIBBS MD 780 .52 INSOMNIA UNSPECIFIED 01/15/2011 OSMAN ALVAREZ APRN 564.00 [...] LOBATO APRNIA R 780.52 INSOMNIA UNSPECIFIED 01/15/2011 LETICIA WADE APRNA L 564 .00 Constipation 01/15/2011 SHERI BAUMANN ANSON L 780 .52 INSOMNIA UNSPECIFIED 01/15/2011 LUIS ALFREDO BAUMANN BRENNA R 564.00 Constipation 01/15/2011 CRISTINO LOBATO APRNIA R 780.52 INSOMNIA UNSPECIFIED 01/15/2011 CARMEN GIBBS MD N 564 .00 Constipation 01/15/2011 CARMEN GIBBS MD 780 .52 INSOMNIA UNSPECIFIED 01/15/2011 ROLON DO, EMIL K 564.00 Constipation 01/15/2011 ROLON DO, EMIL K 780.52 INSOMNIA UNSPECIFIED 01/15/2011 MICHELINE ASSURANCE ENGINEER, RAQUEL R 564.00 Constipation 01/15/2011 MICHELINE ASSURANCE ENGINEER, RAQUEL R 780.52 INSOMNIA UNSPECIFIED 01/15/2011 CARMEN GIBBS MD 564 .00 Constipation 01/15/2011 CARMEN GIBBS MD N 780 .52 INSOMNIA UNSPECIFIED 01/15/2011 LUIS ALFREDO BAUMANN BRENNA R 564.00 Constipation 01/15/2011 LUIS ALFREDO BAUMANN BRENNA R 780.52 INSOMNIA UNSPECIFIED 01/15/2011 MICHELINE ASSURANCE ENGINEER RAQUEL R 564.00 Constipation 01/15/2011 MICHELINE YUN RAQUEL R 780.52 INSOMNIA UNSPECIFIED 01/15/2011 CARMEN GIBBS MD 564 .00 Constipation 01/15/2011 CARMEN GIBBS MD 780 .52 INSOMNIA UNSPECIFIED 01/15/2011 MADL ASSURANCE ENGINEER, ANSON L 564 .00 Constipation 01/15/2011 MADL ASSURANCE ENGINEER, ANSON L 780 .52 INSOMNIA UNSPECIFIED 01/15/2011 MADL ASSURANCE ENGINEER ANSON L 564 .00 Constipation 01/15/2011 MADL ASSURANCE ENGINEER ANSON L 780 .52 INSOMNIA UNSPECIFIED 01/15/2011 MICHELINE BAUMANN RAQUEL R 564.00 Constipation 01/15/2011 MICHELINE BAUMANN RAQUEL R 780.52 INSOMNIA UNSPECIFIED 01/15/2011 WHITE DDS, ELLIOT J 564.00 Constipation 01/15/2011 WHITE DDS, ELLIOT J 780.52 INSOMNIA UNSPECIFIED 01/15/2011 CARMEN GIBBS MD N 564 .00 Constipation 01/15/2011 CARMEN GIBBS MD 780 .52 INSOMNIA UNSPECIFIED 01/15/2011 ROLON DO, EIML K 564.00 Constipation 01/15/2011 ROLON DO, EMIL K 780.52 INSOMNIA UNSPECIFIED 01/15/2011 MADL ASSURANCE ENGINEER, ANSON L 564 .00 Constipation 01/15/2011 SHERI ASSURANCE ENGINEERCINTHIA ChristieANSON L 780 .52 INSOMNIA UNSPECIFIED 01/15/2011 CARMEN GIBBS MD N 564 .00 Constipation 01/15/2011 CARMEN GIBBS MD 780 .52 INSOMNIA UNSPECIFIED 01/15/2011 CARMEN GIBBS MD 564 .00 Constipation 01/15/2011 CARMEN GIBBS MD N 780 .52 INSOMNIA UNSPECIFIED 01/15/2011 MADL ASSURANCE ENGINEER, ANSON L 564 .00 Constipation 01/15/2011 MADL ASSURANCE ENGINEER, ANSON L 780 .52 INSOMNIA UNSPECIFIED 01/15/2011 ROLON DO, EMIL K 564.00 Constipation 01/15/2011 ROLON DO, EMIL K 780.52 INSOMNIA UNSPECIFIED 02/02/2011 MUOGHALU DDS, REGINO N 401.1 HYPERTENSION, BENIGN ESSENTIAL 02/02/2011 MUOGHALU DDS, REGINO N V17.49 FAM HX HYPERTENSION 02/02/2011 401.1 HYPE RTENSION, BENIGN ESSENTIAL 02/02/2011 V17.49 FAM HX HYPERTENSION 02/02/2011 EMERY LOBATO APRNRICIA R 401.1 HYPERTENSION, BENIGN ESSENTIAL 02/02/2011 CRISTINO LOBATO APRNIA R V17.49 FAM HX HYPERTENSION 02/02/2011 ROLON DO, EMIL K 401.1 HYPERTENSION, BENIGN ESSENTIAL 02/02/2011 ROLON DO, EMIL K V17.49 FAM HX HYPERTENSION 02/02/2011 ELLY DOUGLAS MD 401.1 HYPERTENSION, BENIGN ESSENTIAL 02/02/2011 ELLY DOUGLAS MD V17.4 9 FAM HX HYPERTENSION 02/02/2011 CARMEN GIBBS MD 401 .1 HYPERTENSION, BENIGN ESSENTIAL 02/02/2011 CARMEN GIBBS MD V17 .49 FAM HX HYPERTENSION 02/02/2011 CARMEN GIBBS MD 401 .1 HYPERTENSION, BENIGN ESSENTIAL 02/02/2011 CARMEN GIBBS MD V17 .49 FAM HX HYPERTENSION 02/02/2011 JESSICA DDS, RAQUEL Galdamez 401.1 HYPERTENSION, BENIGN ESSENTIAL 02/02/2011 JESSICA DDS, RAQUEL Galdamez V17.49 FAM HX HYPERTENSION 02/02/2011 ROLON DO, EMIL K 401.1 HYPERTENSION, BENIGN ESSENTIAL 02/02/2011 ROLON DO, EMIL K V17.49 FAM HX HYPERTENSION 02/02/2011 CARMEN GIBBS MD N 401 .1 HYPERTENSION, BENIGN ESSENTIAL 02/02/2011 CARMEN GIBBS MD V17 .49 FAM HX HYPERTENSION 02/02/2011 CARMEN GIBBS MD N 401 .1 HYPERTENSION, BENIGN ESSENTIAL 02/02/2011 SAI MD, CARMEN N V17 .49 FAM HX HYPERTENSION 02/02/2011 OSMAN ALVAREZ APRN T 40 1.1 HYPERTENSION, BENIGN ESSENTIAL 02/02/2011 OSMAN ALVAREZ APRN [...] FAM HX HYPERTENSION 02/02/2011 OSMAN ALVAREZ APRN 40 1.1 HYPERTENSION, BENIGN ESSENTIAL 02/02/2011 OSMAN ALVAREZ APRN V17.49 FAM HX HYPERTENSION 02/02/2011 ROLON DO, EMIL K 401.1 HYPERTENSION, BENIGN ESSENTIAL 02/02/2011 ROLON DO, EMIL K V17.49 FAM HX HYPERTENSION 02/02/2011 ROLON DO, EMIL K 401.1 HYPERTENSION, BENIGN ESSENTIAL 02/02/2011 ROLON DO, EMIL K V17.49 FAM HX HYPERTENSION 02/02/2011 LUIS ALFREDO ASSURANCE ENGINEER, BRENNA R 401.1 HYPERTENSION, BENIGN ESSENTIAL 02/02/2011 LUIS ALFREDO YUN, BRENNA R V17.49 FAM HX HYPERTENSION 02/02/2011 MAD ASSURANCE ENGINEER, ANSON L 401 .1 HYPERTENSION, BENIGN ESSENTIAL 02/02/2011 MAD ASSURANCE ENGINEER, ANSON L V17 .49 FAM HX HYPERTENSION 02/02/2011 LUIS ALFREDO YUN, BRENNA R 401.1 HYPERTENSION, BENIGN ESSENTIAL 02/02/2011 LUIS ALFREDO YUN, BRENNA R V17.49 FAM HX HYPERTENSION 02/02/2011 SAI [place], CARMEN N 401 .1 HYPERTENSION, BENIGN ESSENTIAL 02/02/2011 CARMEN GIBBS MD N V17 .49 FAM HX HYPERTENSION 02/02/2011 ROLON DO, EMIL K 401.1 HYPERTENSION, BENIGN ESSENTIAL 02/02/2011 ROLON DO, EMIL K V17.49 FAM HX HYPERTENSION 02/02/2011 MICHELINE BAUMANN, RAQUEL R 401.1 HYPERTENSION, BENIGN ESSENTIAL 02/02/2011 MICHELINE BAUMANN RAQUEL R V17.49 FAM HX HYPERTENSION 02/02/2011 CARMEN GIBBS MD N 401 .1 HYPERTENSION, BENIGN ESSENTIAL 02/02/2011 CARMEN GIBBS MD N V17 .49 FAM HX HYPERTENSION 02/02/2011 LUIS ALFREDO ASSURANCE ENGINEER, BRENNA R 401.1 HYPERTENSION, BENIGN ESSENTIAL 02/02/2011 LUIS ALFREDO ASSURANCE ENGINEER, BRENNA R V17.49 FAM HX HYPERTENSION 02/02/2011 MICHELINE ASSURANCE ENGINEER, RAQUEL R 401.1 HYPERTENSION, BENIGN ESSENTIAL 02/02/2011 MICHELINE ASSURANCE ENGINEER, RAQUEL R V17.49 FAM HX HYPERTENSION 02/02/2011 CARMEN GIBBS MD N 401 .1 HYPERTENSION, BENIGN ESSENTIAL 02/02/2011 CARMEN GIBBS MD N V17 .49 FAM HX HYPERTENSION 02/02/2011 MADL ASSURANCE ENGINEER, ANSON L 401 .1 HYPERTENSION, BENIGN ESSENTIAL 02/02/2011 MADL ASSURANCE ENGINEER, ANSON L V17 .49 FAM HX HYPERTENSION 02/02/2011 MADL ASSURANCE ENGINEER, ANSON L 401 .1 HYPERTENSION, BENIGN ESSENTIAL 02/02/2011 MADL ASSURANCE ENGINEER, ANSON L V17 .49 FAM HX HYPERTENSION 02/02/2011 MICHELINE ASSURANCE ENGINEER, RAQUEL R 401.1 HYPERTENSION, BENIGN ESSENTIAL 02/02/2011 MICHELINE ASSURANCE ENGINEER, RAQUEL R V17.49 FAM HX HYPERTENSION 02/02/2011 WHITE DDS, ELLIOT J 40 1.1 HYPERTENSION, BENIGN ESSENTIAL 02/02/2011 WHITE DDS, ELLIOT J V17.49 FAM HX HYPERTENSION 02/02/2011 CARMEN GIBBS MD N 401 .1 HYPERTENSION, BENIGN ESSENTIAL 02/02/2011 CARMEN GIBBS MD N V17 .49 FAM HX HYPERTENSION 02/02/2011 ROLON DO, EMIL K 401.1 HYPERTENSION, BENIGN ESSENTIAL 02/02/2011 ROLON DO, EMIL K V17.49 FAM HX HYPERTENSION 02/02/2011 JOSE FRANCISCOL ASSURANCE ENGINEER, ANSON L 401 .1 HYPERTENSION, BENIGN ESSENTIAL 02/02/2011 JOSE FRANCISCOL ASSURANCE ENGINEER, ANSON L V17 .49 FAM HX HYPERTENSION 02/02/2011 CARMEN GIBBS MD N 401 .1 HYPERTENSION, BENIGN ESSENTIAL 02/02/2011 CARMEN GIBBS MD N V17 .49 FAM HX HYPERTENSION 02/02/2011 CARMEN GIBBS MD N 401 .1 HYPERTENSION, BENIGN ESSENTIAL 02/02/2011 SAI [place], CARMEN N V17 .49 FAM HX HYPERTENSION 02/02/2011 MADL ASSURANCE ENGINEER, ANSON L 401 .1 HYPERTENSION, BENIGN ESSENTIAL 02/02/2011 MADL ASSURANCE ENGINEER, ANSON L V17 .49 FAM HX HYPERTENSION 02/02/2011 ROLON DO, EMIL K 401.1 HYPERTENSION, BENIGN ESSENTIAL 02/02/2011 ROLON DO, EMIL K V17.49 FAM HX HYPERTENSION 03/28/2011 DEB VILLAVICENCIO, REGINO N 386.11 Vertigo- Benign Paroxysmal Positional 03/28/2011 386.11 Jeff tigo- Benign Paroxysmal Positional 03/28/2011 EMERY LOBATO APRNRICIA R 386.11 Vertigo- Benign Paroxysmal Positional 03/28/2011 ROLON DO, EMIL K 386.11 Vertigo- Benign Paroxysmal Positional 03/28/2011 ELLY DOUGLAS MD 386.1 1 Vertigo- Benign Paroxysmal Positional 03/28/2011 CARMEN GIBBS MD N 386 .11 Vertigo- Benign Paroxysmal Positional 03/28/2011 CARMEN GIBBS MD N 386 .11 Vertigo- Benign Paroxysmal Positional 03/28/2011 JESSICA VILLAVICENCIO, RAQUEL Galdamez 386.11 Vertigo- Benign Paroxysmal Positional 03/28/2011 ROLON DO, EMIL K 386.11 Vertigo- Benign Paroxysmal Positional 03/28/2011 CARMEN GIBBS MD N 386 .11 Vertigo- Benign Paroxysmal Positional 03/28/2011 CARMEN GIBBS MD N 386 .11 Vertigo- Benign Paroxysmal Positional 03/28/2011 OSMAN ALVAREZ [...] K 386.11 Vertigo- Benign Paroxysmal Positional 03/28/2011 BRENNA LOBATO APRN R 386.11 Vertigo- Benign Paroxysmal Positional 03/28/2011 SHERI BAUMANN, ANSON L 386 .11 Vertigo- Benign Paroxysmal Positional 03/28/2011 LUIS ALFREDO BAUMANN, BRENNA R 386.11 Vertigo- Benign Paroxysmal Positional 03/28/2011 CARMEN GIBBS MD N 386 .11 Vertigo- Benign Paroxysmal Positional 03/28/2011 EMIL ROLON DO K 386.11 Vertigo- Benign Paroxysmal Positional 03/28/2011 MICHELINE BAUMANN, RAQUEL R 386.11 Vertigo- Benign Paroxysmal Positional 03/28/2011 CARMEN GIBBS MD 386 .11 Vertigo- Benign Paroxysmal Positional 03/28/2011 LUIS ALFREDO BAUMANN BRENNA R 386.11 Vertigo- Benign Paroxysmal Positional 03/28/2011 MICHELINE BAUMANN RAQUEL R 386.11 Vertigo- Benign Paroxysmal Positional 03/28/2011 CARMEN GIBBS MD N 386 .11 Vertigo- Benign Paroxysmal Positional 03/28/2011 SHERI BAUMANN, ANSON L 386 .11 Vertigo- Benign Paroxysmal Positional 03/28/2011 CINTHIA WADE APRNWNYA L 386 .11 Vertigo- Benign Paroxysmal Positional 03/28/2011 MICHELINE BAUMANN RAQUEL R 386.11 Vertigo- Benign Paroxysmal Positional 03/28/2011 JOSH VILLAVICENCIO, ELLIOT [place] 386.11 Vertigo- Benign Paroxysmal Positional 03/28/2011 CARMEN GIBBS MD N 386 .11 Vertigo- Benign Paroxysmal Positional 03/28/2011 EMIL ROLON DO K 386.11 Vertigo- Benign Paroxysmal Positional 03/28/2011 CINTHIA WADE APRNWNYA L 386 .11 Vertigo- Benign Paroxysmal Positional 03/28/2011 CARMEN GIBBS MD N 386 .11 Vertigo- Benign Paroxysmal Positional 03/28/2011 CARMEN GIBBS MD N 386 .11 Vertigo- Benign Paroxysmal Positional 03/28/2011 SHERI BAUMANN ANSON L 386 .11 Vertigo- Benign Paroxysmal Positional 03/28/2011 GONZALES GAMING EMIL K 386.11 Vertigo- Benign Paroxysmal Positional 04/01/2011 Ot 789.01 ABD OMINAL PAIN, RIGHT UPPER QUADRANT 04/12/2011 REGINO BOYD DDS N 892.0 Open Wound Of Foot Except Toe(s) Alone Without Complic ation 04/12/2011 REGINO BOYD DDS N 917.8 Other And Unspecified Superficial Injury Of Foot And Toes Without Infection 04/12/2011 JANNIERODNEY JETERS, REGINO N V04.81 Flu Dx (3 Yrs And Above, Im) 04/12/2011 892.0 Open Wound Of Foot Except Toe(s) Alone Without Complication 04/12/2011 917.8 Othe r And Unspecified Superficial Injury Of Foot And Toes Without Infection 04/12/2011 V04.81 Flu Dx (3 Yrs And Above, Im) 04/12/2011 LUIS ALFREDO ASSURANCE ENGINEER, BRENNA R 892.0 Open Wound Of Foot Except Toe(s) Alone Without Complic ation 04/12/2011 LUIS ALFREDO ASSURANCE ENGINEER, BRENNA R 917.8 Other And Unspecified Superficial Injury Of Foot And Toes Without Infection 04/12/2011 LUIS ALFREDO ASSURANCE ENGINEER, BRENNA R V04.81 Flu Dx (3 Yrs And Above, Im) 04/12/2011 ROLON DO EMIL K 892.0 Open Wound Of Foot Except Toe(s) Alone Without Complication 04/12/2011 GONZALES GAMING EMIL K 917.8 Other And Unspecified Superficial Injury Of Foot And Toes Without Infection 04/12/2011 ROLON DO, EMIL K V04.81 Flu Dx (3 Yrs And Above, Im) 04/12/2011 ELLY DOUGLAS MD 892.0 Open Wound Of Foot Except Toe(s) Alone Without Complication 04/12/2011 ELLY DOUGLAS MD 917.8 Other And Unspecified Superficial Injury Of Foot And Toes Without Infection 04/12/2011 ELLY DOUGLAS MD V04.8 1 Flu Dx (3 Yrs And Above, Im) 04/12/2011 CARMEN GIBBS MD 892 .0 Open Wound Of Foot Except Toe(s) Alone Without Complication 04/12/2011 CARMEN GIBBS MD 917 .8 Other And Unspecified Superficial Injury Of Foot And Toes Without Infection 04/12/2011 CARMEN GIBBS MD V04 .81 Flu Dx (3 Yrs And Above, Im) 04/12/2011 CARMEN GIBBS MD 892 .0 Open Wound Of Foot Except Toe(s) Alone Without Complication 04/12/2011 CARMEN GIBBS MD 917 .8 Other And Unspecified Superficial Injury Of Foot And Toes Without Infection 04/12/2011 CARMEN GIBBS MD V04 .81 Flu Dx (3 Yrs And Above, Im) 04/12/2011 JESSICA JETERSRAQUEL 892.0 Open Wound Of Foot Except Toe(s) Alone Without Complic ation 04/12/2011 JESSICA VILLAVICENCIO, RAQUEL Galdamez 917.8 Other And Unspecified Superficial Injury Of Foot And Toes Without Infection 04/12/2011 JESSICA JETERSRAQUEL V04.81 Flu Dx (3 Yrs And Above, Im) 04/12/2011 GONZALES DO EMIL K 892.0 Open Wound Of Foot Except Toe(s) Alone Without Complication 04/12/2011 ROLON DO EMIL K 917.8 Other And Unspecified Superficial Injury Of Foot And Toes Without Infection 04/12/2011 GONZALES GAMING EMIL K V04.81 Flu Dx (3 Yrs And Above, Im) 04/12/2011 CARMEN GIBBS MD 892 .0 Open Wound Of Foot Except Toe(s) Alone Without Complication 04/12/2011 CARMEN GIBBS MD 917 .8 Other And Unspecified Superficial Injury Of Foot And Toes Without Infection 04/12/2011 CARMEN GIBBS MD V04 .81 Flu Dx (3 Yrs And Above, Im) 04/12/2011 CARMEN GIBBS MD 892 .0 Open Wound Of Foot Except Toe(s) Alone Without Complication 04/12/2011 CARMEN GIBBS MD 917 .8 Other And Unspecified Superficial Injury Of Foot And Toes Without Infection 04/12/2011 CARMEN GIBBS MD V04 .81 Flu Dx (3 Yrs And Above, Im) 04/12/2011 OSMAN ALVAREZ APRN 89 2.0 Open Wound Of Foot Except Toe(s) Alone Without Complication 04/12/2011 OSMAN ALVAREZ APRN 91 7.8 Other And Unspecified Superficial Injury Of Foot And Toes Without Infection 04/12/2011 OSMAN ALVAREZ APRN V04.81 Flu Dx (3 Yrs And Above, Im) 04/12/2011 GONZALES GAMING EMIL K 892.0 Open Wound Of Foot Except Toe(s) Alone Without Complication 04/12/2011 GONZALES GAMING EMIL K 917.8 Other And Unspecified Superficial [...] And Above, Im) 04/12/2011 OSMAN ALVAREZ APRN 89 2.0 Open Wound Of Foot Except Toe(s) Alone Without Complication 04/12/2011 OSMAN ALVAREZ APRN 91 7.8 Other And Unspecified Superficial Injury Of Foot And Toes Without Infection 04/12/2011 OMSAN ALVAREZ APRN V04.81 Flu Dx (3 Yrs [...] Dx (3 Yrs And Above, Im) 04/12/2011 CRISTINO LOBATO APRNIA R 892.0 Open Wound Of Foot Except Toe(s) Alone Without Complic ation 04/12/2011 CRISTINO LOBATO APRNIA R 917.8 Other And Unspecified Superficial Injury Of Foot And Toes Without Infection 04/12/2011 EMERY LOBATO APRNRICIA R V04.81 Flu Dx (3 Yrs And Above, Im) 04/12/2011 SHERI ASSURANCE ENGINEERCINTHIAANSON L 892 .0 Open Wound Of Foot Except Toe(s) Alone Without Complication 04/12/2011 SHERI ASSURANCE ENGINEER, ANSON L 917 .8 Other And Unspecified Superficial Injury Of Foot And Toes Without Infection 04/12/2011 SHERI ASSURANCE ENGINEER, ANSON L V04 .81 Flu Dx (3 Yrs And Above, Im) 04/12/2011 LUIS ALFREDO YUN, BRENNA R 892.0 Open Wound Of Foot Except Toe(s) Alone Without Complic ation 04/12/2011 LUIS ALFREDO ASSURANCE ENGINEER, BRENNA R 917.8 Other And Unspecified Superficial Injury Of Foot And Toes Without Infection 04/12/2011 LUIS ALFREDO ASSURANCE ENGINEER, BRENNA R V04.81 Flu Dx (3 Yrs And Above, Im) 04/12/2011 CARMEN GIBBS MD N 892 .0 Open Wound Of Foot Except Toe(s) Alone Without Complication 04/12/2011 CARMEN GIBBS MD 917 .8 Other And Unspecified Superficial Injury Of Foot And Toes Without Infection 04/12/2011 CARMEN GIBBS MD V04 .81 Flu Dx (3 Yrs And Above, Im) 04/12/2011 EMIL ROLON DO K 892.0 Open Wound Of Foot Except Toe(s) Alone Without Complication 04/12/2011 SUDHIR ROLON DOA K 917.8 Other And Unspecified Superficial Injury Of Foot And Toes Without Infection 04/12/2011 GONZALES GAMING EMIL K V04.81 Flu Dx (3 Yrs And Above, Im) 04/12/2011 MICHELINE BAUMANN RAQUEL R 892.0 Open Wound Of Foot Except Toe(s) Alone Without Complic ation 04/12/2011 MALACHI TOBIAS APRNINA R 917.8 Other And Unspecified Superficial Injury Of Foot And Toes Without Infection 04/12/2011 MICHELINE BAUMANN RAQUEL R V04.81 Flu Dx (3 Yrs And Above, Im) 04/12/2011 CARMEN GIBBS MD N 892 .0 Open Wound Of Foot Except Toe(s) Alone Without Complication 04/12/2011 CARMEN GIBBS MD 917 .8 Other And Unspecified Superficial Injury Of Foot And Toes Without Infection 04/12/2011 CARMEN GIBBS MD N V04 .81 Flu Dx (3 Yrs And Above, Im) 04/12/2011 EMERY LOBATO APRNRICIA R 892.0 Open Wound Of Foot Except Toe(s) Alone Without Complic ation 04/12/2011 LUIS ALFREDO BAUMANN, BRENNA R 917.8 Other And Unspecified Superficial Injury Of Foot And Toes Without Infection 04/12/2011 LUIS ALFREDO BAUMANN BRENNA R V04.81 Flu Dx (3 Yrs And Above, Im) 04/12/2011 MICHELINE BAUMANN, RAQUEL R 892.0 Open Wound Of Foot Except Toe(s) Alone Without Complic ation 04/12/2011 MICHELINE BAUMANN RAQUEL R 917.8 Other And Unspecified Superficial Injury Of Foot And Toes Without Infection 04/12/2011 MICHELINE BAUMANN RAQUEL R V04.81 Flu Dx (3 Yrs And Above, Im) 04/12/2011 CARMEN GIBBS MD N 892 .0 Open Wound Of Foot Except Toe(s) Alone Without Complication 04/12/2011 CARMEN GIBBS MD N 917 .8 Other And Unspecified Superficial Injury Of Foot And Toes Without Infection 04/12/2011 CARMEN GIBBS MD N V04 .81 Flu Dx (3 Yrs And Above, Im) 04/12/2011 SHERI BAUMANN, ANSON L 892 .0 Open Wound Of Foot Except Toe(s) Alone Without Complication 04/12/2011 SHERI BAUMANN, ANSON L 917 .8 Other And Unspecified Superficial Injury Of Foot And Toes Without Infection 04/12/2011 SHERI ASSURANCE ENGINEER, ANSON L V04 .81 Flu Dx (3 Yrs And Above, Im) 04/12/2011 JOSE FRANCISCOL ASSURANCE ENGINEER, ANSON L 892 .0 Open Wound Of Foot Except Toe(s) Alone Without Complication 04/12/2011 SHERI ASSURANCE ENGINEER, ANSON L 917 .8 Other And Unspecified Superficial Injury Of Foot And Toes Without Infection 04/12/2011 JOSE FRANCISCOL ASSURANCE ENGINEER, ANSON L V04 .81 Flu Dx (3 Yrs And Above, Im) 04/12/2011 MICHELINE BAUMANN RAQUEL R 892.0 Open Wound Of Foot Except Toe(s) Alone Without Complic ation 04/12/2011 MICHELINE ASSURANCE ENGINEER, RAQUEL R 917.8 Other And Unspecified Superficial Injury Of Foot And Toes Without Infection 04/12/2011 MICHELINE ASSURANCE ENGINEER, RAQUEL R V04.81 Flu Dx (3 Yrs And Above, Im) 04/12/2011 WHITE DDS, ELLIOT J 89 2.0 Open Wound Of Foot Except Toe(s) Alone Without Complication 04/12/2011 WHITE DDS, ELLIOT J 91 7.8 Other And Unspecified Superficial Injury Of Foot And Toes Without Infection 04/12/2011 WHITE DDS, ELLIOT J V04.81 Flu Dx (3 Yrs And Above, Im) 04/12/2011 CARMEN GIBBS MD N 892 .0 Open Wound Of Foot Except Toe(s) Alone Without Complication 04/12/2011 CARMEN GIBBS MD 917 .8 Other And Unspecified Superficial Injury Of Foot And Toes Without Infection 04/12/2011 CARMEN GIBBS MD V04 .81 Flu Dx (3 Yrs And Above, Im) 04/12/2011 GONZALES GAMING EMIL K 892.0 Open Wound Of Foot Except Toe(s) Alone Without Complication 04/12/2011 GONZALES GAMING EMIL K 917.8 Other And Unspecified Superficial Injury Of Foot And Toes Without Infection 04/12/2011 GONZALES GAMING EMIL K V04.81 Flu Dx (3 Yrs And Above, Im) 04/12/2011 SHERI ASSURANCE ENGINEER, ANSON L 892 .0 Open Wound Of Foot Except Toe(s) Alone Without Complication 04/12/2011 SHERI ASSURANCE ENGINEER, ANSON L 917 .8 Other And Unspecified Superficial Injury Of Foot And Toes Without Infection 04/12/2011 SHERI ASSURANCE ENGINEER, ANSON L V04 .81 Flu Dx (3 Yrs And Above, Im) 04/12/2011 CARMEN GIBBS MD N 892 .0 Open Wound Of Foot Except Toe(s) Alone Without Complication 04/12/2011 CARMEN GIBBS MD 917 .8 Other And Unspecified Superficial Injury Of Foot And Toes Without Infection 04/12/2011 CARMEN GIBBS MD V04 .81 Flu Dx (3 Yrs And Above, Im) 04/12/2011 CARMEN GIBBS MD N 892 .0 Open Wound Of Foot Except Toe(s) Alone Without Complication 04/12/2011 CARMEN GIBBS MD N 917 .8 Other And Unspecified Superficial Injury Of Foot And Toes Without Infection 04/12/2011 CARMEN GIBBS MD V04 .81 Flu Dx (3 Yrs And Above, Im) 04/12/2011 MADL ASSURANCE ENGINEER, ANSON L 892 .0 Open Wound Of Foot Except Toe(s) Alone Without Complication 04/12/2011 MADL ASSURANCE ENGINEER, ANSON L 917 .8 Other And Unspecified Superficial Injury Of Foot And Toes Without Infection 04/12/2011 MADL ASSURANCE ENGINEER, ANSON L V04 .81 Flu Dx (3 Yrs And Above, Im) 04/12/2011 ROLON DO EMIL K 892.0 Open Wound Of Foot Except Toe(s) Alone Without Complication 04/12/2011 GONZALES GAMING EMIL K 917.8 Other And Unspecified Superficial Injury Of Foot And Toes Without Infection 04/12/2011 SUDHIR ROLON DOA K V04.81 Flu Dx (3 Yrs And Above, Im) 04/13/2011 REGINO BOYD DDS 477.9 ALLERGIC RHINITIS CAUSE UNSPECIFIED 04/13/2011 477.9 FABIOLA RGIC RHINITIS CAUSE UNSPECIFIED 04/13/2011 BRENNA LOBATO APRN 477.9 ALLERGIC RHINITIS CAUSE UNSPECIFIED 04/13/2011 EMIL ROLON DO K 477.9 ALLERGIC RHINITIS CAUSE UNSPECIFIED 04/13/2011 ELLY DOUGLAS MD 477.9 ALLERGIC RHINITIS CAUSE UNSPECIFIED 04/13/2011 CARMEN GIBBS MD N 477 .9 ALLERGIC RHINITIS CAUSE UNSPECIFIED 04/13/2011 CARMEN GIBBS MD 477 .9 ALLERGIC RHINITIS CAUSE UNSPECIFIED 04/13/2011 RAQUEL LOPEZ DDS 477.9 ALLERGIC RHINITIS CAUSE UNSPECIFIED 04/13/2011 EMIL ROLON DO 477.9 ALLERGIC RHINITIS CAUSE UNSPECIFIED 04/13/2011 CARMEN GIBBS MD N 477 .9 ALLERGIC RHINITIS CAUSE UNSPECIFIED 04/13/2011 CARMEN GIBBS MD N 477 .9 ALLERGIC RHINITIS CAUSE UNSPECIFIED 04/13/2011 OSMAN ALVAREZ APRN 47 7.9 ALLERGIC RHINITIS CAUSE UNSPECIFIED 04/13/2011 ROLON DO, EMIL K 477.9 ALLERGIC RHINITIS CAUSE UNSPECIFIED 04/13/2011 ROLON DO, EMIL K 477.9 ALLERGIC RHINITIS CAUSE UNSPECIFIED 04/13/2011 ROLON DO, EMIL K 477.9 ALLERGIC RHINITIS CAUSE UNSPECIFIED 04/13/2011 OSMAN ALVAREZ APRN 47 7.9 ALLERGIC RHINITIS CAUSE UNSPECIFIED 04/13/2011 ROLON DO, EMIL K 477.9 ALLERGIC RHINITIS CAUSE UNSPECIFIED 04/13/2011 ROLON DO, EMIL K 477.9 ALLERGIC RHINITIS CAUSE UNSPECIFIED 04/13/2011 EMERY LOBATO APRNRICIA R 477.9 ALLERGIC RHINITIS CAUSE UNSPECIFIED 04/13/2011 MADL ASSURANCE ENGINEER, ANSON L 477 .9 ALLERGIC RHINITIS CAUSE UNSPECIFIED 04/13/2011 EMERY LOBATO APRNRICIA R 477.9 ALLERGIC RHINITIS CAUSE UNSPECIFIED 04/13/2011 CARMEN GIBBS MD 477 .9 ALLERGIC RHINITIS CAUSE UNSPECIFIED 04/13/2011 ROLON DO, EMIL K 477.9 ALLERGIC RHINITIS CAUSE UNSPECIFIED 04/13/2011 MICHELINE BAUMANN RAQUEL R 477.9 ALLERGIC RHINITIS CAUSE UNSPECIFIED 04/13/2011 CARMEN GIBBS MD N 477 .9 ALLERGIC RHINITIS CAUSE UNSPECIFIED 04/13/2011 CRISTINO LOBATO APRNIA R 477.9 ALLERGIC RHINITIS CAUSE UNSPECIFIED 04/13/2011 MICHELINE BAUMANN RAQUEL R 477.9 ALLERGIC RHINITIS CAUSE UNSPECIFIED 04/13/2011 CARMEN GIBBS MD N 477 .9 ALLERGIC RHINITIS CAUSE UNSPECIFIED 04/13/2011 SHERI ASSURANCE ENGINEER ANSON L 477 .9 ALLERGIC RHINITIS CAUSE UNSPECIFIED 04/13/2011 SHERI BAUMANN ANSON L 477 .9 ALLERGIC RHINITIS CAUSE UNSPECIFIED 04/13/2011 MICHELINE BAUMANN RAQUEL R 477.9 ALLERGIC RHINITIS CAUSE UNSPECIFIED 04/13/2011 ELLIOT MORENO DDS 47 7.9 ALLERGIC RHINITIS CAUSE UNSPECIFIED 04/13/2011 CARMEN GIBBS MD N 477 .9 ALLERGIC RHINITIS CAUSE UNSPECIFIED 04/13/2011 ROLON DO, EMIL K 477.9 ALLERGIC RHINITIS CAUSE UNSPECIFIED 04/13/2011 JOSE FRANCISCOL ASSURANCE ENGINEER, ASNON L 477 .9 ALLERGIC RHINITIS CAUSE UNSPECIFIED 04/13/2011 CARMEN GIBBS MD 477 .9 ALLERGIC RHINITIS CAUSE UNSPECIFIED 04/13/2011 CARMEN GIBBS MD 477 .9 ALLERGIC RHINITIS CAUSE UNSPECIFIED 04/13/2011 SHERI BAUMANN ANSON L 477 .9 ALLERGIC RHINITIS CAUSE UNSPECIFIED 04/13/2011 SUDHIR ROLON DOA K 477.9 ALLERGIC RHINITIS CAUSE UNSPECIFIED 04/17/2011 MUOGHALU DDS, REGINO N 599.0 Urinary Tract Infection 04/17/2011 MUOGHALU DDS, REGINO N 789.00 Abdominal Pain Unspecified Site 04/17/2011 599.0 Urin clarnece Tract Infection 04/17/2011 789.00 Abd ominal Pain Unspecified Site 04/17/2011 EMERY LOBATO APRNRICIA R 599.0 Urinary Tract Infection 04/17/2011 CRISTINO LOBATO APRNIA R 789.00 Abdominal Pain Unspecified Site 04/17/2011 SUDHIR ROLON DOA K 599.0 Urinary Tract Infection 04/17/2011 SUDHIR ROLON DOA K 789.00 Abdominal Pain Unspecified Site 04/17/2011 ELLY DOUGLAS MD 599.0 Urinary Tract Infection 04/17/2011 ELLY DOUGLAS MD 789.0 0 Abdominal Pain Unspecified Site 04/17/2011 CARMEN GIBBS MD 599 .0 Urinary Tract Infection 04/17/2011 CARMEN GIBBS MD 789 .00 Abdominal Pain Unspecified Site 04/17/2011 CARMEN GIBBS MD 599 .0 Urinary Tract Infection 04/17/2011 CARMEN GIBBS MD 789 .00 Abdominal Pain Unspecified Site 04/17/2011 RAQUEL LOPEZ DDS 599.0 Urinary Tract Infection 04/17/2011 RAQUEL LOPEZ DDS 789.00 Abdominal Pain Unspecified Site 04/17/2011 SUDHIR ROLON DOA K 599.0 Urinary Tract Infection 04/17/2011 SUDHIR ROLON DOA K 789.00 Abdominal Pain Unspecified Site 04/17/2011 CARMEN GIBBS MD 599 .0 Urinary Tract Infection 04/17/2011 CARMEN GIBBS MD 789 .00 Abdominal Pain Unspecified Site 04/17/2011 SAI MD, CARMEN N 599 .0 Urinary Tract Infection 04/17/2011 CARMEN GIBBS MD N 789 .00 Abdominal Pain Unspecified Site 04/17/2011 OSMAN ALVAREZ APRN 59 9.0 Urinary Tract Infection 04/17/2011 OSMAN ALVAREZ APRN [...] Pain Unspecified Site 04/17/2011 OSMAN ALVAREZ APRN 59 9.0 Urinary Tract Infection 04/17/2011 OSMAN ALVAREZ APRN 789.00 Abdominal Pain Unspecified Site 04/17/2011 ROLON DO, EMIL K 599.0 Urinary Tract Infection 04/17/2011 ROLON DO, EMIL K 789.00 Abdominal Pain Unspecified Site 04/17/2011 ROLON DO, EMIL K 599.0 Urinary Tract Infection 04/17/2011 ROLON DO, EMIL K 789.00 Abdominal Pain Unspecified Site 04/17/2011 LUIS ALFREDO BAUMANN BRENNA R 599.0 Urinary Tract Infection 04/17/2011 LUIS ALFREDO BAUMANN BRENNA R 789.00 Abdominal Pain Unspecified Site 04/17/2011 SHERI ASSURANCE ENGINEER, ANSON L 599 .0 Urinary Tract Infection 04/17/2011 SHERI YUN, ANSON L 789 .00 Abdominal Pain Unspecified Site 04/17/2011 EMERY LOBATO APRNRICIA R 599.0 Urinary Tract Infection 04/17/2011 EMERY LOBATO APRNRICIA R 789.00 Abdominal Pain Unspecified Site 04/17/2011 CARMEN GIBBS MD N 599 .0 Urinary Tract Infection 04/17/2011 CARMEN GIBBS MD N 789 .00 Abdominal Pain Unspecified Site 04/17/2011 ROLON DO, EMIL K 599.0 Urinary Tract Infection 04/17/2011 ROLON DO, EMIL K 789.00 Abdominal Pain Unspecified Site 04/17/2011 MICHELINE ASSURANCE ENGINEER, RAQUEL R 599.0 Urinary Tract Infection 04/17/2011 MICHELINE ASSURANCE ENGINEER, RAQUEL R 789.00 Abdominal Pain Unspecified Site 04/17/2011 CARMEN GIBBS MD N 599 .0 Urinary Tract Infection 04/17/2011 CARMEN GIBBS MD N 789 .00 Abdominal Pain Unspecified Site 04/17/2011 LOBATO ASSURANCE ENGINEER, BRENNA R 599.0 Urinary Tract Infection 04/17/2011 LUIS ALFREDO YUN, BRENNA R 789.00 Abdominal Pain Unspecified Site 04/17/2011 MICHELINE ASSURANCE ENGINEER, RAQUEL R 599.0 Urinary Tract Infection 04/17/2011 MICHELINE ASSURANCE ENGINEER, RAQUEL R 789.00 Abdominal Pain Unspecified Site 04/17/2011 CARMEN GIBBS MD N 599 .0 Urinary Tract Infection 04/17/2011 CARMEN GIBBS MD N 789 .00 Abdominal Pain Unspecified Site 04/17/2011 MADL ASSURANCE ENGINEER, ANSON L 599 .0 Urinary Tract Infection 04/17/2011 MADL ASSURANCE ENGINEER, ANSON L 789 .00 Abdominal Pain Unspecified Site 04/17/2011 MADL ASSURANCE ENGINEER, ANSON L 599 .0 Urinary Tract Infection 04/17/2011 MADL ASSURANCE ENGINEER, ANSON L 789 .00 Abdominal Pain Unspecified Site 04/17/2011 MICHELINE ASSURANCE ENGINEER, RAQUEL R 599.0 Urinary Tract Infection 04/17/2011 MICHELINE ASSURANCE ENGINEER, RAQUEL R 789.00 Abdominal Pain Unspecified Site 04/17/2011 JOSH JETERS, ELLIOT J 59 9.0 Urinary Tract Infection 04/17/2011 JOSH JETERS, ELLIOT J 789.00 Abdominal Pain Unspecified Site 04/17/2011 CARMEN GIBBS MD N 599 .0 Urinary Tract Infection 04/17/2011 CARMEN GIBBS MD N 789 .00 Abdominal Pain Unspecified Site 04/17/2011 ROLON DO, EMIL K 599.0 Urinary Tract Infection 04/17/2011 ROLON DO, EMIL K 789.00 Abdominal Pain Unspecified Site 04/17/2011 MADL ASSURANCE ENGINEER, ANSON L 599 .0 Urinary Tract Infection 04/17/2011 MADL ASSURANCE ENGINEER, ANSON L 789 .00 Abdominal Pain Unspecified Site 04/17/2011 CARMEN GIBBS MD N 599 .0 Urinary Tract Infection 04/17/2011 CARMEN GIBBS MD N 789 .00 Abdominal Pain Unspecified Site 04/17/2011 CARMEN GIBBS MD N 599 .0 Urinary Tract Infection 04/17/2011 CARMEN GIBBS MD N 789 .00 Abdominal Pain Unspecified Site 04/17/2011 MADL ASSURANCE ENGINEER, ANSON L 599 .0 Urinary Tract Infection 04/17/2011 MADL ASSURANCE ENGINEER, ANSON L 789 .00 Abdominal Pain Unspecified Site 04/17/2011 ROLON DO, EMIL K 599.0 Urinary Tract Infection 04/17/2011 ROLON DO, EMIL K 789.00 Abdominal Pain Unspecified Site 05/01/2011 REGINO BOYD DDS N 625.9 Pelvic Pain 05/01/2011 625.9 Pelv ic Pain 05/01/2011 BRENNA LOBATO APRN R 625.9 Pelvic Pain 05/01/2011 ROLON DO, EMIL K 625.9 Pelvic Pain 05/01/2011 ELLY DOUGLAS MD 625.9 Pelvic Pain 05/01/2011 CARMEN GIBBS MD N 625 .9 Pelvic Pain 05/01/2011 CARMEN GIBBS MD 625 .9 Pelvic Pain 05/01/2011 RAQUEL LOPEZ DDS 625.9 Pelvic Pain 05/01/2011 ROLON DO, EMIL K 625.9 Pelvic Pain 05/01/2011 CARMEN GIBBS MD 625 .9 Pelvic Pain 05/01/2011 CARMEN GIBBS MD N 625 .9 Pelvic Pain 05/01/2011 OSMAN ALVAREZ APRN 62 5.9 Pelvic Pain 05/01/2011 ROLON DO, EMIL K 625.9 Pelvic Pain 05/01/2011 ROLON DO, EMIL K 625.9 Pelvic Pain 05/01/2011 ROLON DO, EMIL K 625.9 Pelvic Pain 05/01/2011 OSMAN ALVAREZ APRN 62 5.9 Pelvic Pain 05/01/2011 ROLON DO, EMIL K 625.9 Pelvic Pain 05/01/2011 ROLON DO, EMIL K 625.9 Pelvic Pain 05/01/2011 BRENNA LOBATO APRN R 625.9 Pelvic Pain 05/01/2011 MADL ASSURANCE ENGINEER, ANSON L 625 .9 Pelvic Pain 05/01/2011 LOBATO ASSURANCE ENGINEER, BRENNA R 625.9 Pelvic Pain 05/01/2011 CARMEN GIBBS MD N 625 .9 Pelvic Pain 05/01/2011 ROLON DO, EMIL K 625.9 Pelvic Pain 05/01/2011 MICHELINE ASSURANCE ENGINEER, RAQUEL R 625.9 Pelvic Pain 05/01/2011 CARMEN GIBBS MD 625 .9 Pelvic Pain 05/01/2011 LOBATO ASSURANCE ENGINEER, BRENNA R 625.9 Pelvic Pain 05/01/2011 MICHELINE ASSURANCE ENGINEER, RAQUEL R 625.9 Pelvic Pain 05/01/2011 CARMEN GIBBS MD N 625 .9 Pelvic Pain 05/01/2011 MADL ASSURANCE ENGINEER, ANSON L 625 .9 Pelvic Pain 05/01/2011 MADL ASSURANCE ENGINEER, ANSON L 625 .9 Pelvic Pain 05/01/2011 MICHELINE ASSURANCE ENGINEER, RAQUEL R 625.9 Pelvic Pain 05/01/2011 JOSH VILLAVICENCIO, ELLIOT [place] 62 5.9 Pelvic Pain 05/01/2011 CARMEN GIBBS MD N 625 .9 Pelvic Pain 05/01/2011 ROLON DO, EMIL K 625.9 Pelvic Pain 05/01/2011 MADL ASSURANCE ENGINEER, ANSON L 625 .9 Pelvic Pain 05/01/2011 CARMEN GIBBS MD 625 .9 Pelvic Pain 05/01/2011 CARMEN GIBBS MD 625 .9 Pelvic Pain 05/01/2011 MADL ASSURANCE ENGINEER, ANSON L 625 .9 Pelvic Pain 05/01/2011 GONZALES GAMING EMIL K 625.9 Pelvic Pain 05/21/2011 DEB VILLAVICENCIO, REGINO Christie 381.81 Dysfunction Of Eustachian Tube 05/21/2011 381.81 Dys function Of Eustachian Tube 05/21/2011 EMERY LOBATO APRNRICIA R 381.81 Dysfunction Of Eustachian Tube 05/21/2011 SUDHIR ROLON DOA K 381.81 Dysfunction Of Eustachian Tube 05/21/2011 ELLY DOUGLAS MD 381.8 1 Dysfunction Of Eustachian Tube 05/21/2011 CARMEN GIBBS MD 381 .81 Dysfunction Of Eustachian Tube 05/21/2011 CARMEN GIBBS MD 381 .81 Dysfunction Of Eustachian Tube 05/21/2011 JESSICA VILLAVICENCIO, RAQUEL Galdamez 381.81 Dysfunction Of Eustachian Tube 05/21/2011 ROLON DO, EMIL K 381.81 Dysfunction Of Eustachian Tube 05/21/2011 CARMEN GIBBS MD 381 .81 Dysfunction Of Eustachian Tube 05/21/2011 CARMEN GIBBS MD 381 .81 Dysfunction Of Eustachian Tube 05/21/2011 OSMAN ALVAREZ [...] K 381.81 Dysfunction Of Eustachian Tube 05/21/2011 BRENNA LOBATO APRN R 381.81 Dysfunction Of Eustachian Tube 05/21/2011 ANSON WADE APRN L 381 .81 Dysfunction Of Eustachian Tube 05/21/2011 BRENNA LOBATO APRN R 381.81 Dysfunction Of Eustachian Tube 05/21/2011 CARMEN GIBBS MD 381 .81 Dysfunction Of Eustachian Tube 05/21/2011 ROLON SUDHIR GAMINGA K 381.81 Dysfunction Of Eustachian Tube 05/21/2011 MALACHI TOBIAS APRNINA R 381.81 Dysfunction Of Eustachian Tube 05/21/2011 CARMEN GIBBS MD 381 .81 Dysfunction Of Eustachian Tube 05/21/2011 BRENNA LOBATO APRN R 381.81 Dysfunction Of Eustachian Tube 05/21/2011 MALACHI TOBIAS APRNINA R 381.81 Dysfunction Of Eustachian Tube 05/21/2011 CARMEN GIBBS MD 381 .81 Dysfunction Of Eustachian Tube 05/21/2011 ANSON WADE APRN L 381 .81 Dysfunction Of Eustachian Tube 05/21/2011 ANSON WADE APRN 381 .81 Dysfunction Of Eustachian Tube 05/21/2011 RAQUEL TOBIAS APRN 381.81 Dysfunction Of Eustachian Tube 05/21/2011 ELLIOT MORENO DDS 381.81 Dysfunction Of Eustachian Tube 05/21/2011 CARMEN GIBBS MD 381 .81 Dysfunction Of Eustachian Tube 05/21/2011 SUDHIR ROLON DOA K 381.81 Dysfunction Of Eustachian Tube 05/21/2011 ANSON WADE APRN 381 .81 Dysfunction Of Eustachian Tube 05/21/2011 CARMEN GIBBS MD 381 .81 Dysfunction Of Eustachian Tube 05/21/2011 CARMEN GBIBS MD 381 .81 Dysfunction Of Eustachian Tube 05/21/2011 ANSON WADE APRN 381 .81 Dysfunction Of Eustachian Tube 05/21/2011 SUDHIR ROLON DOA K 381.81 Dysfunction Of Eustachian Tube 05/30/2011 REGINO BOYD DDS 786.50 Chest Pain Or Discomfort 05/30/[address] Pain Or Discomfort 05/30/2011 BRENNA LOBATO APRN 786.50 Chest Pain Or Discomfort 05/30/2011 SUDHIR ROLON DOA K 786.50 Chest Pain Or Discomfort 05/30/2011 ELLY DOUGLAS MD 786.5 0 Chest Pain Or Discomfort 05/30/2011 CARMEN GIBBS MD 786 .50 Chest Pain Or Discomfort 05/30/2011 CARMEN GIBBS MD 786 .50 Chest Pain Or Discomfort 05/30/2011 RAQUEL LOPEZ DDS 786.50 Chest Pain Or Discomfort 05/30/2011 GONZALES GAMING EMIL K 786.50 Chest Pain Or Discomfort 05/30/2011 CARMEN GIBBS MD 786 .50 Chest Pain Or Discomfort 05/30/2011 CARMEN GIBBS MD 786 .50 Chest Pain Or Discomfort 05/30/2011 OSMAN ALVAREZ APRN 786.50 Chest Pain Or Discomfort 05/30/2011 ROLON DO EMIL K 786.50 Chest Pain Or Discomfort 05/30/2011 ROLON DO EMIL K 786.50 Chest Pain Or Discomfort 05/30/2011 ROLON DO, EMIL K 786.50 Chest Pain Or Discomfort 05/30/2011 OSMAN ALVAREZ APRN 786.50 Chest Pain Or Discomfort 05/30/2011 ROLON DO, EMIL K 786.50 Chest Pain Or Discomfort 05/30/2011 ROLON DO, EMIL K 786.50 Chest Pain Or Discomfort 05/30/2011 LUIS ALFREDO BAUMANN BRENNA R 786.50 Chest Pain Or Discomfort 05/30/2011 MADL ASSURANCE ENGINEER, ANSON L 786 .50 Chest Pain Or Discomfort 05/30/2011 EMERY LOBATO APRNRICIA R 786.50 Chest Pain Or Discomfort 05/30/2011 CARMEN GIBBS MD 786 .50 Chest Pain Or Discomfort 05/30/2011 ROLON DO, EMIL K 786.50 Chest Pain Or Discomfort 05/30/2011 MICHELINE BAUMANN RAQUEL R 786.50 Chest Pain Or Discomfort 05/30/2011 CARMEN GIBBS MD 786 .50 Chest Pain Or Discomfort 05/30/2011 EMERY LOBATO APRNRICIA R 786.50 Chest Pain Or Discomfort 05/30/2011 MICHELINE BAUMANN RAQUEL R 786.50 Chest Pain Or Discomfort 05/30/2011 CARMEN GIBBS MD 786 .50 Chest Pain Or Discomfort 05/30/2011 SHERI BAUMANN, ANSON L 786 .50 Chest Pain Or Discomfort 05/30/2011 SHERI BAUMANN, ANSON L 786 .50 Chest Pain Or Discomfort 05/30/2011 MICHELINE BAUMANN RAQUEL R 786.50 Chest Pain Or Discomfort 05/30/2011 JOSH DDS, ELLIOT J 786.50 Chest Pain Or Discomfort 05/30/2011 CARMEN GIBBS MD 786 .50 Chest Pain Or Discomfort 05/30/2011 ROLON DO, EMIL K 786.50 Chest Pain Or Discomfort 05/30/2011 SHERI BAUMANN, ANSON L 786 .50 Chest Pain Or Discomfort 05/30/2011 CARMEN GIBBS MD 786 .50 Chest Pain Or Discomfort 05/30/2011 CARMEN GIBBS MD 786 .50 Chest Pain Or Discomfort 05/30/2011 SHERI YUN, ANSON L 786 .50 Chest Pain Or Discomfort 05/30/2011 ROLON DO, EMIL K 786.50 Chest Pain Or Discomfort 06/19/2011 Ot 451.19 FORREST P PHLEBITIS- LEG NEC 06/19/2011 Ot 729.5 PAIN IN LIMB 06/20/2011 DEB VILLAVICENCIO, REGINO N 729.5 Hand Pain 06/20/2011 729.5 Hand Pain 06/20/2011 BRENNA LOBATO APRN R 729.5 Hand Pain 06/20/2011 ROLON DO, EMIL K 729.5 Hand Pain 06/20/2011 ELLY DOUGLAS MD 729.5 Hand Pain 06/20/2011 CARMEN GIBBS MD 729 .5 Hand Pain 06/20/2011 CARMEN GIBBS MD 729 .5 Hand Pain 06/20/2011 RAQUEL LOPEZ DDS 729.5 Hand Pain 06/20/2011 ROLON DO, EMIL K 729.5 Hand Pain 06/20/2011 CARMEN GIBBS MD 729 .5 Hand Pain 06/20/2011 CARMEN GIBBS MD 729 .5 Hand Pain 06/20/2011 OSMAN ALVAREZ APRN 72 9.5 Hand Pain 06/20/2011 ROLON DO, EMIL K 729.5 Hand Pain 06/20/2011 ROLON DO, EMIL K 729.5 Hand Pain 06/20/2011 ROLON DO, EMIL K 729.5 Hand Pain 06/20/2011 OSMAN ALVAREZ APRN 72 9.5 Hand Pain 06/20/2011 ROLON DO, EMIL K 729.5 Hand Pain 06/20/2011 ROLON DO, EMIL K 729.5 Hand Pain 06/20/2011 BRENNA LOBATO APRN R 729.5 Hand Pain 06/20/2011 ANSON WADE APRN 729 .5 Hand Pain 06/20/2011 BRENNA LOBATO APRN R 729.5 Hand Pain 06/20/2011 CARMEN GIBBS MD 729 .5 Hand Pain 06/20/2011 ROLON DO, EMIL K 729.5 Hand Pain 06/20/2011 RAQUEL TOBIAS APRN R 729.5 Hand Pain 06/20/2011 CARMEN GIBBS MD 729 .5 Hand Pain 06/20/2011 BRENNA LOBATO APRN R 729.5 Hand Pain 06/20/2011 RAQUEL TOBIAS APRN R 729.5 Hand Pain 06/20/2011 CARMEN GIBBS MD N 729 .5 Hand Pain 06/20/2011 MADL ASSURANCE ENGINEER, ANSON L 729 .5 Hand Pain 06/20/2011 MADL ASSURANCE ENGINEER, ANSON L 729 .5 Hand Pain 06/20/2011 RAQUEL TOBIAS APRN R 729.5 Hand Pain 06/20/2011 ELLIOT MORENO DDS 72 9.5 Hand Pain 06/20/2011 CARMEN GIBBS MD 729 .5 Hand Pain 06/20/2011 EMIL ROLON DO K 729.5 Hand Pain 06/20/2011 MADL ASSURANCE ENGINEER, ANSON L 729 .5 Hand Pain 06/20/2011 CARMEN GIBBS MD 729 .5 Hand Pain 06/20/2011 CARMEN GIBBS MD 729 .5 Hand Pain 06/20/2011 MADBenji ASSURANCE ENGINEER, ANSON L 729 .5 Hand Pain 06/20/2011 EMIL ROLON DO K 729.5 Hand Pain 07/31/2011 DEB VILLAVICENCIO, REGINO Christie 333.94 RESTLESS LEGS SYNDROME (RLS) 07/31/2011 333.94 RES TLESS LEGS SYNDROME (RLS) 07/31/2011 BRENNA LOBATO APRN 333.94 RESTLESS LEGS SYNDROME (RLS) 07/31/2011 EMIL ROLON DO 333.94 RESTLESS LEGS SYNDROME (RLS) 07/31/2011 ELLY DOUGLAS MD 333.9 4 RESTLESS LEGS SYNDROME (RLS) 07/31/2011 CARMEN GIBBS MD 333 .94 RESTLESS LEGS SYNDROME (RLS) 07/31/2011 CARMEN GIBBS MD 333 .94 RESTLESS LEGS SYNDROME (RLS) 07/31/2011 RAQUEL LOPEZ DDS 333.94 RESTLESS LEGS SYNDROME (RLS) 07/31/2011 EMIL ROLON DO 333.94 RESTLESS LEGS SYNDROME (RLS) 07/31/2011 CARMEN GIBBS MD 333 .94 RESTLESS LEGS SYNDROME (RLS) 07/31/2011 CARMEN GIBBS MD 333 .94 RESTLESS LEGS SYNDROME (RLS) 07/31/2011 OSMAN ALVAREZ [...] R 333.94 RESTLESS LEGS SYNDROME (RLS) 07/31/2011 LETICIA WADE APRNA L 333 .94 RESTLESS LEGS SYNDROME (RLS) 07/31/2011 BRENNA LOBATO APRN R 333.94 RESTLESS LEGS SYNDROME (RLS) 07/31/2011 CARMEN GIBBS MD 333 .94 RESTLESS LEGS SYNDROME (RLS) 07/31/2011 EMIL ROLON DO K 333.94 RESTLESS LEGS SYNDROME (RLS) 07/31/2011 RAQUEL TOBIAS APRN R 333.94 RESTLESS LEGS SYNDROME (RLS) 07/31/2011 CARMEN GIBBS MD 333 .94 RESTLESS LEGS SYNDROME (RLS) 07/31/2011 BRENNA LOBATO APRN R 333.94 RESTLESS LEGS SYNDROME (RLS) 07/31/2011 MALACHI TOBIAS APRNINA R 333.94 RESTLESS LEGS SYNDROME (RLS) 07/31/2011 CARMEN GIBBS MD 333 .94 RESTLESS LEGS SYNDROME (RLS) 07/31/2011 LETICIA WADE APRNA L 333 .94 RESTLESS LEGS SYNDROME (RLS) 07/31/2011 LETICIA WADE APRNA L 333 .94 RESTLESS LEGS SYNDROME (RLS) 07/31/2011 MALACHI TOBIAS APRNINA R 333.94 RESTLESS LEGS SYNDROME (RLS) 07/31/2011 ELLIOT MORENO DDS 333.94 RESTLESS LEGS SYNDROME (RLS) 07/31/2011 CARMEN GIBBS MD 333 .94 RESTLESS LEGS SYNDROME (RLS) 07/31/2011 SUDHIR ROLON DOA K 333.94 RESTLESS LEGS SYNDROME (RLS) 07/31/2011 LETICIA WADE APRNA L 333 .94 RESTLESS LEGS SYNDROME (RLS) 07/31/2011 CARMEN GIBBS MD 333 .94 RESTLESS LEGS SYNDROME (RLS) 07/31/2011 CARMEN GIBBS MD 333 .94 RESTLESS LEGS SYNDROME (RLS) 07/31/2011 ANSON WADE APRN 333 .94 RESTLESS LEGS SYNDROME (RLS) 07/31/2011 ROLON DO, EMIL K 333.94 RESTLESS LEGS SYNDROME (RLS) 09/11/2011 DEB VILLAVICENCIO, REGINO Christie 789.06 ABDOMINAL PAIN EPIGASTRIC 09/11/2011 789.06 ABD OMINAL PAIN EPIGASTRIC 09/11/2011 BRENNA LOBATO APRN R 789.06 ABDOMINAL PAIN EPIGASTRIC 09/11/2011 ROLON DO EMIL K 789.06 ABDOMINAL PAIN EPIGASTRIC 09/11/2011 ELLY DOUGLAS MD 789.0 6 ABDOMINAL PAIN EPIGASTRIC 09/11/2011 CARMEN GIBBS MD 789 .06 ABDOMINAL PAIN EPIGASTRIC 09/11/2011 CARMEN GIBBS MD 789 .06 ABDOMINAL PAIN EPIGASTRIC 09/11/2011 JESSICA VILLAVICENCIO, RAQUEL Galdamez 789.06 ABDOMINAL PAIN EPIGASTRIC 09/11/2011 ROLON DO EMIL K 789.06 ABDOMINAL PAIN EPIGASTRIC 09/11/2011 CARMEN GIBBS MD 789 .06 ABDOMINAL PAIN EPIGASTRIC 09/11/2011 CARMEN GIBBS MD 789 .06 ABDOMINAL PAIN EPIGASTRIC 09/11/2011 OSMAN ALVAREZ APRN [...] ABDOMINAL PAIN EPIGASTRIC 09/11/2011 ANSON WADE APRN 789 .06 ABDOMINAL PAIN EPIGASTRIC 09/11/2011 BRENNA LOBATO APRN R 789.06 ABDOMINAL PAIN EPIGASTRIC 09/11/2011 CARMEN GIBBS MD N 789 .06 ABDOMINAL PAIN EPIGASTRIC 09/11/2011 EMIL ROLON DO K 789.06 ABDOMINAL PAIN EPIGASTRIC 09/11/2011 RAQUEL TOBIAS APRN R 789.06 ABDOMINAL PAIN EPIGASTRIC 09/11/2011 CARMEN GIBBS MD N 789 .06 ABDOMINAL PAIN EPIGASTRIC 09/11/2011 BRENNA LOBATO APRN R 789.06 ABDOMINAL PAIN EPIGASTRIC 09/11/2011 RAQUEL OTBIAS APRN R 789.06 ABDOMINAL PAIN EPIGASTRIC 09/11/2011 CARMEN GIBBS MD N 789 .06 ABDOMINAL PAIN EPIGASTRIC 09/11/2011 ANSON WADE APRN L 789 .06 ABDOMINAL PAIN EPIGASTRIC 09/11/2011 ANSON WADE APRN L 789 .06 ABDOMINAL PAIN EPIGASTRIC 09/11/2011 RAQUEL TOBIAS APRN R 789.06 ABDOMINAL PAIN EPIGASTRIC 09/11/2011 JOSH VILLAVICENCIO, ELLIOT Alston 789.06 ABDOMINAL PAIN EPIGASTRIC 09/11/2011 CARMEN GIBBS MD N 789 .06 ABDOMINAL PAIN EPIGASTRIC 09/11/2011 EMIL ROLON DO K 789.06 ABDOMINAL PAIN EPIGASTRIC 09/11/2011 ANSON WADE APRN L 789 .06 ABDOMINAL PAIN EPIGASTRIC 09/11/2011 CARMEN GIBBS MD N 789 .06 ABDOMINAL PAIN EPIGASTRIC 09/11/2011 CARMEN GIBBS MD N 789 .06 ABDOMINAL PAIN EPIGASTRIC 09/11/2011 ANSON WADE APRN L 789 .06 ABDOMINAL PAIN EPIGASTRIC 09/11/2011 EMIL ROLON DO K 789.06 ABDOMINAL PAIN EPIGASTRIC 09/28/2011 MUOGHALREGINO Morris DDS N 789.00 abdominal pain 09/28/2011 MUOGHALU REGINO VILLAVICENCIO N V68.1 Issue Of Repeat Prescriptions 09/28/2011 789.00 abd ominal pain 09/28/2011 V68.1 Issu e Of Repeat Prescriptions 09/28/2011 BRENNA LOBATO APRN R 789.00 abdominal pain 09/28/2011 BRENNA LOBATO APRN V68.1 Issue Of Repeat Prescriptions 09/28/2011 ROLON DO, EMIL K 789.00 abdominal pain 09/28/2011 ROLON DO, EMIL K V68.1 Issue Of Repeat Prescriptions 09/28/2011 ELLY DOUGLAS MD 789.0 0 abdominal pain 09/28/2011 ELLY DOUGLAS MD V68.1 Issue Of Repeat Prescriptions 09/28/2011 CARMEN GIBBS MD 789 .00 abdominal pain 09/28/2011 CARMEN GIBBS MD V68 .1 Issue Of Repeat Prescriptions 09/28/2011 CARMEN GIBBS MD 789 .00 abdominal pain 09/28/2011 CARMEN GIBBS MD V68 .1 Issue Of Repeat Prescriptions 09/28/2011 RAQUEL LOPEZ DDS 789.00 abdominal pain 09/28/2011 RAQUEL LOPEZ DDS V68.1 Issue Of Repeat Prescriptions 09/28/2011 ROLON SUDHIR GAMINGA K 789.00 abdominal pain 09/28/2011 ROLON SUDHIR GAMINGA K V68.1 Issue Of Repeat Prescriptions 09/28/2011 CARMEN GIBBS MD 789 .00 abdominal pain 09/28/2011 CARMEN GIBBS MD V68 .1 Issue Of Repeat Prescriptions 09/28/2011 CARMEN GIBBS MD 789 .00 abdominal pain 09/28/2011 CARMEN GIBBS MD V68 .1 Issue Of Repeat Prescriptions 09/28/2011 OSMAN ALVAREZ APRN 789.00 abdominal pain 09/28/2011 OSMAN ALVAREZ APRN V6 8.1 Issue Of Repeat Prescriptions 09/28/2011 ROLON DO, [...] 789.00 abdominal pain 09/28/2011 OSMAN ALVAREZ APRN V6 8.1 Issue Of Repeat Prescriptions 09/28/2011 ROLON DO, EMIL K 789.00 abdominal pain 09/28/2011 ROLON DO, EMIL K V68.1 Issue Of Repeat Prescriptions 09/28/2011 ROLON DO, EMIL K 789.00 abdominal pain 09/28/2011 ROLON DO, EMIL K V68.1 Issue Of Repeat Prescriptions 09/28/2011 BRENNA LOBATO APRN R 789.00 abdominal pain 09/28/2011 BRENNA LOBATO APRN R V68.1 Issue Of Repeat Prescriptions 09/28/2011 MADL ASSURANCE ENGINEERLETICIA ChristieA L 789 .00 abdominal pain 09/28/2011 MADL LETICIA BAUMANNA L V68 .1 Issue Of Repeat Prescriptions 09/28/2011 BRENNA LOBATO APRN R 789.00 abdominal pain 09/28/2011 BRENNA LOBATO APRN R V68.1 Issue Of Repeat Prescriptions 09/28/2011 CARMEN GIBBS MD 789 .00 abdominal pain 09/28/2011 CARMEN GIBBS MD V68 .1 Issue Of Repeat Prescriptions 09/28/2011 GONZALES GAMING EMIL K 789.00 abdominal pain 09/28/2011 ROLON SUDHIR GAMINGA K V68.1 Issue Of Repeat Prescriptions 09/28/2011 RAQUEL TOBIAS APRN R 789.00 abdominal pain 09/28/2011 RAQUEL TOBIAS APRN R V68.1 Issue Of Repeat Prescriptions 09/28/2011 CARMEN GIBBS MD N 789 .00 abdominal pain 09/28/2011 CARMEN GIBBS MD N V68 .1 Issue Of Repeat Prescriptions 09/28/2011 BRENNA LOBATO APRN R 789.00 abdominal pain 09/28/2011 BRENNA LOBATO APRN R V68.1 Issue Of Repeat Prescriptions 09/28/2011 MALACHI TOBIAS APRNINA R 789.00 abdominal pain 09/28/2011 MALACHI TOBIAS APRNINA R V68.1 Issue Of Repeat Prescriptions 09/28/2011 CARMEN GIBBS MD N 789 .00 abdominal pain 09/28/2011 CARMEN GIBBS MD V68 .1 Issue Of Repeat Prescriptions 09/28/2011 LETICIA WADE APRNA L 789 .00 abdominal pain 09/28/2011 LETICIA WADE APRNA L V68 .1 Issue Of Repeat Prescriptions 09/28/2011 SHERI YUShahnaz ANSON L 789 .00 abdominal pain 09/28/2011 SHERI YUShahnaz ANSON L V68 .1 Issue Of Repeat Prescriptions 09/28/2011 MICHELINE BAUMANN, RAQUEL R 789.00 abdominal pain 09/28/2011 MICHELINE ASSURANCE ENGINEER, RAQUEL R V68.1 Issue Of Repeat Prescriptions 09/28/2011 WHITE STEFFANYS, ELLIOT J 789.00 abdominal pain 09/28/2011 WHITE STEFFANYS, ELLIOT J V6 8.1 Issue Of Repeat Prescriptions 09/28/2011 CARMEN GIBBS MD 789 .00 abdominal pain 09/28/2011 CARMEN GIBBS MD V68 .1 Issue Of Repeat Prescriptions 09/28/2011 EMIL ROLON DO K 789.00 abdominal pain 09/28/2011 EMIL ROLON DO K V68.1 Issue Of Repeat Prescriptions 09/28/2011 ANSON WADE APRN L 789 .00 abdominal pain 09/28/2011 ANSON WADE APRN L V68 .1 Issue Of Repeat Prescriptions 09/28/2011 CARMEN GIBBS MD N 789 .00 abdominal pain 09/28/2011 CARMEN GIBBS MD N V68 .1 Issue Of Repeat Prescriptions 09/28/2011 CARMEN GIBBS MD N 789 .00 abdominal pain 09/28/2011 CARMEN GIBBS MD N V68 .1 Issue Of Repeat Prescriptions 09/28/2011 ANSON WADE APRN L 789 .00 abdominal pain 09/28/2011 ANSON WADE APRN L V68 .1 Issue Of Repeat Prescriptions 09/28/2011 EMIL ROLON DO K 789.00 abdominal pain 09/28/2011 SUDHIR ROLON DOA K V68.1 Issue Of Repeat Prescriptions 10/09/2011 Ot 789.06 ABD OMINAL PAIN, EPIGASTRIC 10/30/2011 REGINO BOYD DDS 256.4 POLYCYSTIC OVARIAN SYNDROME 10/30/2011 256.4 POLY CYSTIC OVARIAN SYNDROME 10/30/2011 BRENNA LOBATO APRN 256.4 POLYCYSTIC OVARIAN SYNDROME 10/30/2011 EMIL ROLON DO 256.4 POLYCYSTIC OVARIAN SYNDROME 10/30/2011 ELLY DOUGLAS MD 256.4 POLYCYSTIC OVARIAN SYNDROME 10/30/2011 CARMEN GIBBS MD 256 .4 POLYCYSTIC OVARIAN SYNDROME 10/30/2011 CARMEN GIBBS MD 256 .4 POLYCYSTIC OVARIAN SYNDROME 10/30/2011 JESSICA VILLAVICENCIO, RAQUEL Galdamez 256.4 POLYCYSTIC OVARIAN SYNDROME 10/30/2011 ROLON DO, EMIL K 256.4 POLYCYSTIC OVARIAN SYNDROME 10/30/2011 CARMEN GIBBS MD 256 .4 POLYCYSTIC OVARIAN SYNDROME 10/30/2011 CARMEN GIBBS MD 256 .4 POLYCYSTIC OVARIAN SYNDROME 10/30/2011 OSMAN ALVAREZ APRN T 25 6.4 POLYCYSTIC OVARIAN SYNDROME 10/30/2011 ROLON DO, EMIL K 256.4 POLYCYSTIC OVARIAN SYNDROME 10/30/2011 ROLON DO, EMIL K 256.4 POLYCYSTIC OVARIAN SYNDROME 10/30/2011 ROLON DO, EMIL K 256.4 POLYCYSTIC OVARIAN SYNDROME 10/30/2011 OSMAN ALVAREZ APRN T 25 6.4 POLYCYSTIC OVARIAN SYNDROME 10/30/2011 ROLON DO, EMIL K 256.4 POLYCYSTIC OVARIAN SYNDROME 10/30/2011 ROLON DO, EMIL K 256.4 POLYCYSTIC OVARIAN SYNDROME 10/30/2011 EMERY LOBATO APRNRICIA R 256.4 POLYCYSTIC OVARIAN SYNDROME 10/30/2011 LETICIA WADE APRNA L 256 .4 POLYCYSTIC OVARIAN SYNDROME 10/30/2011 EMERY LOBATO APRNRICIA R 256.4 POLYCYSTIC OVARIAN SYNDROME 10/30/2011 CARMEN GIBBS MD 256 .4 POLYCYSTIC OVARIAN SYNDROME 10/30/2011 ROLON DO, EMIL K 256.4 POLYCYSTIC OVARIAN SYNDROME 10/30/2011 MICHELINE BAUMANN RAQUEL R 256.4 POLYCYSTIC OVARIAN SYNDROME 10/30/2011 CARMEN GIBBS MD 256 .4 POLYCYSTIC OVARIAN SYNDROME 10/30/2011 BRENNA LOBATO APRN R 256.4 POLYCYSTIC OVARIAN SYNDROME 10/30/2011 MALACHI TOBIAS APRNINA R 256.4 POLYCYSTIC OVARIAN SYNDROME 10/30/2011 CARMEN GIBBS MD 256 .4 POLYCYSTIC OVARIAN SYNDROME 10/30/2011 CINTHIA WADE APRNWNYA L 256 .4 POLYCYSTIC OVARIAN SYNDROME 10/30/2011 CINTHIA WADE APRNWNYA L 256 .4 POLYCYSTIC OVARIAN SYNDROME 10/30/2011 MICHELINE BAUMANN RAQUEL R 256.4 POLYCYSTIC OVARIAN SYNDROME 10/30/2011 WHITE DDELLIOT Leal J 25 6.4 POLYCYSTIC OVARIAN SYNDROME 10/30/2011 CARMEN GIBBS MD N 256 .4 POLYCYSTIC OVARIAN SYNDROME 10/30/2011 EMIL ROLON DO K 256.4 POLYCYSTIC OVARIAN SYNDROME 10/30/2011 ANSON WADE APRN 256 .4 POLYCYSTIC OVARIAN SYNDROME 10/30/2011 CARMEN GIBBS MD N 256 .4 POLYCYSTIC OVARIAN SYNDROME 10/30/2011 CARMEN GIBBS MD 256 .4 POLYCYSTIC OVARIAN SYNDROME 10/30/2011 ANSON WADE APRN 256 .4 POLYCYSTIC OVARIAN SYNDROME 10/30/2011 EMIL ROLON DO K 256.4 POLYCYSTIC OVARIAN SYNDROME 11/05/2011 REGINO BOYD DDS N 685.1 Pilonidal Cyst Without Abscess 11/05/2011 REGINO BOYD DDS N V25.09 CONTRACEPTIVE COUNSELING - GENERAL 11/05/2011 REGINO BOYD DDS N V65.3 COUNSELING - DIETARY 11/05/2011 REGINO BOYD DDS N V65.41 EXERCISE COUNSELING 11/05/2011 REGINO BOYD DDS N V74.5 Std Screen 11/05/2011 685.1 Tarik nidal Cyst Without Abscess 11/05/2011 V25.09 CON TRACEPTIVE COUNSELING - GENERAL 11/05/2011 V65.3 COUN SELING - DIETARY 11/05/2011 V65.41 EXE RCISE COUNSELING 11/05/2011 V74.5 Std Screen 11/05/2011 BRENNA LOBATO APRN R 685.1 Pilonidal Cyst Without Abscess 11/05/2011 BRENNA LOBATO APRN R V25.09 CONTRACEPTIVE COUNSELING - GENERAL 11/05/2011 BRENNA LOBATO APRN R V65.3 COUNSELING - DIETARY 11/05/2011 BRENNA LOBATO APRN R V65.41 EXERCISE COUNSELING 11/05/2011 BRENNA LOBATO APRN R V74.5 Std Screen 11/05/2011 EMIL ROLON DO K 685.1 Pilonidal Cyst Without Abscess 11/05/2011 SUDHIR ROLON DOA K V25.09 CONTRACEPTIVE COUNSELING - GENERAL 11/05/2011 ROLON SUDHIR GAMINGA K V65.3 COUNSELING - DIETARY 11/05/2011 ROLON SUDHIR GAMINGA K V65.41 EXERCISE COUNSELING 11/05/2011 EMIL ROLON DO V74.5 Std Screen 11/05/2011 ELLY DOUGLAS MD 685.1 Pilonidal Cyst Without Abscess 11/05/2011 ELLY DOUGLAS MD V25.0 9 CONTRACEPTIVE COUNSELING - GENERAL 11/05/2011 ELLY DOUGLAS MD V65.3 COUNSELING - DIETARY 11/05/2011 ELLY DOUGLAS MD V65.4 1 EXERCISE COUNSELING 11/05/2011 ELLY DOUGLAS MD V74.5 Std Screen 11/05/2011 CARMEN GIBBS MD 685 .1 Pilonidal Cyst Without Abscess 11/05/2011 CARMEN GIBBS MD V25 .09 CONTRACEPTIVE COUNSELING - GENERAL 11/05/2011 CARMEN GIBBS MD V65 .3 COUNSELING - DIETARY 11/05/2011 CARMEN GIBBS MD V65 .41 EXERCISE COUNSELING 11/05/2011 CARMEN GIBBS MD V74 .5 Std Screen 11/05/2011 CARMEN GIBBS MD 685 .1 Pilonidal Cyst Without Abscess 11/05/2011 CARMEN GIBBS MD V25 .09 CONTRACEPTIVE COUNSELING - GENERAL 11/05/2011 CARMEN GIBBS MD V65 .3 COUNSELING - DIETARY 11/05/2011 CARMEN GIBBS MD V65 .41 EXERCISE COUNSELING 11/05/2011 CARMEN GIBBS MD V74 .5 Std Screen 11/05/2011 RAQUEL LOPEZ DDS 685.1 Pilonidal Cyst Without Abscess 11/05/2011 JESSICA RAQUEL VILLAVICENCIO V25.09 CONTRACEPTIVE COUNSELING - GENERAL 11/05/2011 RAQUEL LOPEZ DDS V65.3 COUNSELING - DIETARY 11/05/2011 RAQUEL LOPEZ DDS V65.41 EXERCISE COUNSELING 11/05/2011 RAQUEL LOPEZ DDS V74.5 Std Screen 11/05/2011 EMIL ROLON DO 685.1 Pilonidal Cyst Without Abscess 11/05/2011 EMIL ROLON DO V25.09 CONTRACEPTIVE COUNSELING - GENERAL 11/05/2011 ROLON EMIL GAMING V65.3 COUNSELING - DIETARY 11/05/2011 EMIL ROLON DO V65.41 EXERCISE COUNSELING 11/05/2011 ROLON DO, EMIL K V74.5 Std Screen 11/05/2011 CARMEN GIBBS MD N 685 .1 Pilonidal Cyst Without Abscess 11/05/2011 CARMEN GIBBS MD V25 .09 CONTRACEPTIVE COUNSELING - GENERAL 11/05/2011 CARMEN GIBBS MD V65 .3 COUNSELING - DIETARY 11/05/2011 CARMEN GIBBS MD V65 .41 EXERCISE COUNSELING 11/05/2011 CARMEN GIBBS MD V74 .5 Std Screen 11/05/2011 CARMEN GIBBS MD 685 .1 Pilonidal Cyst Without Abscess 11/05/2011 CARMEN GIBBS MD V25 .09 CONTRACEPTIVE COUNSELING - GENERAL 11/05/2011 CARMEN GIBBS MD V65 .3 COUNSELING - DIETARY 11/05/2011 CARMEN GIBBS MD V65 .41 EXERCISE COUNSELING 11/05/2011 CARMEN GIBBS MD V74 .5 Std Screen 11/05/2011 OSMAN ALVAREZ APRN 68 5.1 Pilonidal Cyst Without Abscess 11/05/2011 OSMAN ALVAREZ APRN V25.09 CONTRACEPTIVE COUNSELING - GENERAL 11/05/2011 OSMAN ALVAREZ APRN V6 5.3 COUNSELING - DIETARY 11/05/2011 OSMAN ALVAREZ APRN V65.41 EXERCISE COUNSELING 11/05/2011 OSMAN ALVAREZ APRN V7 4.5 Std Screen 11/05/2011 ROLON DO, EMIL K [...] V74.5 Std Screen 11/05/2011 OSMAN ALVAREZ APRN 68 5.1 Pilonidal Cyst Without Abscess 11/05/2011 OSMAN ALVAREZ APRN V25.09 CONTRACEPTIVE COUNSELING - GENERAL 11/05/2011 OSMAN ALVAREZ APRN V6 5.3 COUNSELING - DIETARY 11/05/2011 OSMAN ALVAREZ APRN V65.41 EXERCISE COUNSELING 11/05/2011 OSMAN ALVAREZ APRN V7 4.5 Std Screen 11/05/2011 ROLON DO, EMIL K [...] DO, EMIL K V74.5 Std Screen 11/05/2011 LUIS ALFREDO BAUMANN BRENNA R 685.1 Pilonidal Cyst Without Abscess 11/05/2011 LUIS ALFREDO BAUMANN BRENNA R V25.09 CONTRACEPTIVE COUNSELING - GENERAL 11/05/2011 LUIS ALFREDO BAUMANN BRENNA R V65.3 COUNSELING - DIETARY 11/05/2011 LUIS ALFREDO BAUMANN BRENNA R V65.41 EXERCISE COUNSELING 11/05/2011 LUIS ALFREDO BAUMANN BRENNA R V74.5 Std Screen 11/05/2011 MADL ANSON BAUMANN L 685 .1 Pilonidal Cyst Without Abscess 11/05/2011 SHERI YUN, ANSON L V25 .09 CONTRACEPTIVE COUNSELING - GENERAL 11/05/2011 MADL ASSURANCE ENGINEER, ANSON L V65 .3 COUNSELING - DIETARY 11/05/2011 JOSE FRANCISCOL ASSURANCE ENGINEER, ANSON L V65 .41 EXERCISE COUNSELING 11/05/2011 JOSE FRANCISCOL ASSURANCE ENGINEER, ANSON L V74 .5 Std Screen 11/05/2011 CRISTINO LOBATO APRNIA R 685.1 Pilonidal Cyst Without Abscess 11/05/2011 LUIS ALFREDO BAUMANN BRENNA R V25.09 CONTRACEPTIVE COUNSELING - GENERAL 11/05/2011 LUIS ALFREDO BAUMANN BRENNA R V65.3 COUNSELING - DIETARY 11/05/2011 CRISTINO LOBATO APRNIA R V65.41 EXERCISE COUNSELING 11/05/2011 CRISTINO LOBATO APRNIA R V74.5 Std Screen 11/05/2011 CARMEN GIBBS MD 685 .1 Pilonidal Cyst Without Abscess 11/05/2011 CARMEN GIBBS MD N V25 .09 CONTRACEPTIVE COUNSELING - GENERAL 11/05/2011 CARMEN GIBBS MD V65 .3 COUNSELING - DIETARY 11/05/2011 CARMEN GIBBS MD V65 .41 EXERCISE COUNSELING 11/05/2011 CARMEN GIBBS MD V74 .5 Std Screen 11/05/2011 ROLON DO, EMIL K 685.1 Pilonidal Cyst Without Abscess 11/05/2011 ROLON DO, EMIL K V25.09 CONTRACEPTIVE COUNSELING - GENERAL 11/05/2011 ROLON DO, EMIL K V65.3 COUNSELING - DIETARY 11/05/2011 ROLON DO, EMIL K V65.41 EXERCISE COUNSELING 11/05/2011 ROLON DO, EMIL K V74.5 Std Screen 11/05/2011 MALACHI TOBIAS APRNINA R 685.1 Pilonidal Cyst Without Abscess 11/05/2011 MALACHI TOBIAS APRNINA R V25.09 CONTRACEPTIVE COUNSELING - GENERAL 11/05/2011 MALACHI TOBIAS APRNINA R V65.3 COUNSELING - DIETARY 11/05/2011 MALACHI TOBIAS APRNINA R V65.41 EXERCISE COUNSELING 11/05/2011 MALACHI TOBIAS APRNINA R V74.5 Std Screen 11/05/2011 CARMEN GIBBS MD 685 .1 Pilonidal Cyst Without Abscess 11/05/2011 CARMEN GIBBS MD N V25 .09 CONTRACEPTIVE COUNSELING - GENERAL 11/05/2011 CARMEN GIBBS MD N V65 .3 COUNSELING - DIETARY 11/05/2011 CARMEN GIBBS MD V65 .41 EXERCISE COUNSELING 11/05/2011 CARMEN GIBBS MD V74 .5 Std Screen 11/05/2011 LUIS ALFREDO BAUMANN BRENNA R 685.1 Pilonidal Cyst Without Abscess 11/05/2011 LUIS ALFREDO BAUMANN BRENNA R V25.09 CONTRACEPTIVE COUNSELING - GENERAL 11/05/2011 EMERY LOBATO APRNRICIA R V65.3 COUNSELING - DIETARY 11/05/2011 EMERY LOBATO APRNRICIA R V65.41 EXERCISE COUNSELING 11/05/2011 CRISTINO LOBATO APRNIA R V74.5 Std Screen 11/05/2011 MICHELINE BAUMANN RAQUEL R 685.1 Pilonidal Cyst Without Abscess 11/05/2011 MICHELINE BAUMANN RAQUEL R V25.09 CONTRACEPTIVE COUNSELING - GENERAL 11/05/2011 MICHELINE BAUMANN RAQUEL R V65.3 COUNSELING - DIETARY 11/05/2011 MICHELINE BAUMANN RAQUEL R V65.41 EXERCISE COUNSELING 11/05/2011 MICHELINE BAUMANN RAQUEL R V74.5 Std Screen 11/05/2011 CARMEN GIBBS MD N 685 .1 Pilonidal Cyst Without Abscess 11/05/2011 CARMEN GIBBS MD N V25 .09 CONTRACEPTIVE COUNSELING - GENERAL 11/05/2011 CARMEN GIBBS MD N V65 .3 COUNSELING - DIETARY 11/05/2011 CARMEN GIBBS MD V65 .41 EXERCISE COUNSELING 11/05/2011 CARMEN GIBBS MD V74 .5 Std Screen 11/05/2011 ANSON WADE APRN L 685 .1 Pilonidal Cyst Without Abscess 11/05/2011 ANSON WADE APRN L V25 .09 CONTRACEPTIVE COUNSELING - GENERAL 11/05/2011 LETICIA WADE APRNA L V65 .3 COUNSELING - DIETARY 11/05/2011 ANSON WADE APRN L V65 .41 EXERCISE COUNSELING 11/05/2011 LETICIA WADE APRNA L V74 .5 Std Screen 11/05/2011 ANSON WADE APRN L 685 .1 Pilonidal Cyst Without Abscess 11/05/2011 ANSON WADE APRN L V25 .09 CONTRACEPTIVE COUNSELING - GENERAL 11/05/2011 ASNON WADE APRN L V65 .3 COUNSELING - DIETARY 11/05/2011 LETICIA WADE APRNA L V65 .41 EXERCISE COUNSELING 11/05/2011 ANSON WADE APRN L V74 .5 Std Screen 11/05/2011 MICHELINE BAUMANNMALACHIRAQUEL R 685.1 Pilonidal Cyst Without Abscess 11/05/2011 MICHELINE BAUMANN RAQUEL R V25.09 CONTRACEPTIVE COUNSELING - GENERAL 11/05/2011 MICHELINE PASTORAMLACHIRAQUEL R V65.3 COUNSELING - DIETARY 11/05/2011 MICHELINE PASTORMALACHIRAQUEL R V65.41 EXERCISE COUNSELING 11/05/2011 MICHELINE PASTORMALACHIRAQUEL R V74.5 Std Screen 11/05/2011 WHITE DDS, ELLIOT J 68 5.1 Pilonidal Cyst Without Abscess 11/05/2011 WHITE DDS, ELLIOT J V25.09 CONTRACEPTIVE COUNSELING - GENERAL 11/05/2011 WHITE DDS, ELLIOT J V6 5.3 COUNSELING - DIETARY 11/05/2011 JOSH DDS, ELLIOT J V65.41 EXERCISE COUNSELING 11/05/2011 WHITE DDS, ELLIOT J V7 4.5 Std Screen 11/05/2011 CARMEN GIBBS MD 685 .1 Pilonidal Cyst Without Abscess 11/05/2011 CARMEN GIBBS MD V25 .09 CONTRACEPTIVE COUNSELING - GENERAL 11/05/2011 CARMEN GIBBS MD V65 .3 COUNSELING - DIETARY 11/05/2011 CARMEN GIBBS MD V65 .41 EXERCISE COUNSELING 11/05/2011 CARMEN GIBBS MD V74 .5 Std Screen 11/05/2011 EMIL ROLON DO 685.1 Pilonidal Cyst Without Abscess 11/05/2011 SUDHIR ROLON DOA K V25.09 CONTRACEPTIVE COUNSELING - GENERAL 11/05/2011 ROLON SUDHIR GAMINGA K V65.3 COUNSELING - DIETARY 11/05/2011 SUDHIR ROLON DOA K V65.41 EXERCISE COUNSELING 11/05/2011 SUDHIR ROLON DOA K V74.5 Std Screen 11/05/2011 MADL ASSURANCE ENGINEER, ANSON L 685 .1 Pilonidal Cyst Without Abscess 11/05/2011 MADL ASSURANCE ENGINEER, ANSON L V25 .09 CONTRACEPTIVE COUNSELING - GENERAL 11/05/2011 MADL ASSURANCE ENGINEERTIMANSON L V65 .3 COUNSELING - DIETARY 11/05/2011 MADL ASSURANCE ENGINEER, ANSON L V65 .41 EXERCISE COUNSELING 11/05/2011 MADL ASSURANCE ENGINEERLETICIAA L V74 .5 Std Screen 11/05/2011 CARMEN GIBBS MD 685 .1 Pilonidal Cyst Without Abscess 11/05/2011 CARMEN GIBBS MD V25 .09 CONTRACEPTIVE COUNSELING - GENERAL 11/05/2011 CARMEN GIBBS MD V65 .3 COUNSELING - DIETARY 11/05/2011 CARMEN GIBBS MD V65 .41 EXERCISE COUNSELING 11/05/2011 CARMEN GIBBS MD V74 .5 Std Screen 11/05/2011 CARMEN GIBBS MD 685 .1 Pilonidal Cyst Without Abscess 11/05/2011 CARMEN GIBBS MD V25 .09 CONTRACEPTIVE COUNSELING - GENERAL 11/05/2011 CARMEN GIBBS MD V65 .3 COUNSELING - DIETARY 11/05/2011 CARMEN GIBBS MD V65 .41 EXERCISE COUNSELING 11/05/2011 CARMEN GIBBS MD V74 .5 Std Screen 11/05/2011 SHERI ASSURANCE ENGINEERLETICIA ChristieA L 685 .1 Pilonidal Cyst Without Abscess 11/05/2011 JOSE FRANCISCOL ASSURANCE ENGINEERLETICIAA L V25 .09 CONTRACEPTIVE COUNSELING - GENERAL 11/05/2011 JOSE FRANCISCOL ASSURANCE ENGINEERLETICIAA L V65 .3 COUNSELING - DIETARY 11/05/2011 JOSE FRANCISCOBenji ASSURANCE ENGINEERLETICIAA L V65 .41 EXERCISE COUNSELING 11/05/2011 SHERI ASSURANCE ENGINEERLETICIA ChristieA L V74 .5 Std Screen 11/05/2011 ROLON DOSUDHIRA K 685.1 Pilonidal Cyst Without Abscess 11/05/2011 ROLON DO EMIL K V25.09 CONTRACEPTIVE COUNSELING - GENERAL 11/05/2011 SUDHIR ROLON DOA K V65.3 COUNSELING - DIETARY 11/05/2011 EMIL ROLON DO Vickey V65.41 EXERCISE COUNSELING 11/05/2011 EMIL ROLON DO V74.5 Std Screen 11/05/2011 Ot 401.9 HYPE RTENSION NOS 11/05/2011 Ot 784.0 HEAD ACHE 11/07/2011 DEB VILLAVICENCIO, REGINO Christie 008.8 Gastroenteritis, Viral 11/07/2011 008.8 Lino roenteritis, Viral 11/07/2011 BRENNA LOBATO APRN 008.8 Gastroenteritis, Viral 11/07/2011 GONZALES EMIL GAMING K 008.8 Gastroenteritis, Viral 11/07/2011 ELLY DOUGLAS MD 008.8 Gastroenteritis, Viral 11/07/2011 CARMEN GIBBS MD 008 .8 Gastroenteritis, Viral 11/07/2011 CARMEN GBIBS MD 008 .8 Gastroenteritis, Viral 11/07/2011 JESSICA VILLAVICENCIO, RAQUEL Galdamez 008.8 Gastroenteritis, Viral 11/07/2011 ROLON EMIL GAMING 008.8 Gastroenteritis, Viral 11/07/2011 CARMEN GIBBS MD 008 .8 Gastroenteritis, Viral 11/07/2011 CARMEN GIBBS MD 008 .8 Gastroenteritis, Viral 11/07/2011 OSMAN ALVAREZ APRN 00 8.8 Gastroenteritis, Viral 11/07/2011 ROLON SUDHIR GAMINGA K 008.8 Gastroenteritis, Viral 11/07/2011 ROLON SUDHIR GAMINGA K 008.8 Gastroenteritis, Viral 11/07/2011 ROLON SUDHIR GAMINGA K 008.8 Gastroenteritis, Viral 11/07/2011 OSMAN ALVAREZ APRN 00 8.8 Gastroenteritis, Viral 11/07/2011 ROLON SUDHIR GAMINGA K 008.8 Gastroenteritis, Viral 11/07/2011 ROLON SUDHIR GAMINGA K 008.8 Gastroenteritis, Viral 11/07/2011 BRENNA LOBATO APRN 008.8 Gastroenteritis, Viral 11/07/2011 ANSON WADE APRN 008 .8 Gastroenteritis, Viral 11/07/2011 BRENNA LOBATO APRN 008.8 Gastroenteritis, Viral 11/07/2011 CARMEN GIBBS MD 008 .8 Gastroenteritis, Viral 11/07/2011 ROLON SUDHIR GAMINGA K 008.8 Gastroenteritis, Viral 11/07/2011 RAQUEL TOBIAS APRN 008.8 Gastroenteritis, Viral 11/07/2011 SAI MD, CARMEN N 008 .8 Gastroenteritis, Viral 11/07/2011 CRISTINO LOBATO APRNIA R 008.8 Gastroenteritis, Viral 11/07/2011 MICHELINE BUAMANN, RAQUEL R 008.8 Gastroenteritis, Viral 11/07/2011 CARMEN GIBBS MD N 008 .8 Gastroenteritis, Viral 11/07/2011 MADL ASSURANCE ENGINEER, ANSON L 008 .8 Gastroenteritis, Viral 11/07/2011 MADL ASSURANCE ENGINEER, ANSON L 008 .8 Gastroenteritis, Viral 11/07/2011 MICHELINE BAUMANN, RAQUEL R 008.8 Gastroenteritis, Viral 11/07/2011 JOSH VILLAVICENCIO, ELLIOT Al[place] 00 8.8 Gastroenteritis, Viral 11/07/2011 CARMEN GIBBS MD 008 .8 Gastroenteritis, Viral 11/07/2011 EMIL ROLON DO K 008.8 Gastroenteritis, Viral 11/07/2011 MADL ASSURANCE ENGINEER, ANSON L 008 .8 Gastroenteritis, Viral 11/07/2011 CARMEN GIBBS MD 008 .8 Gastroenteritis, Viral 11/07/2011 CARMEN GIBBS MD 008 .8 Gastroenteritis, Viral 11/07/2011 MADL ASSURANCE ENGINEER, ANSON L 008 .8 Gastroenteritis, Viral 11/07/2011 EMIL ROLON DO 008.8 Gastroenteritis, Viral 12/10/2011 DEB VILLAVICENCIO, REGINO Christie 724.79 Other Disorders Of Coccyx 12/10/2011 724.79 [facility] er Disorders Of Coccyx 12/10/2011 BRENNA LOBATO APRN 724.79 Other Disorders Of Coccyx 12/10/2011 EMIL ROLON DO 724.79 Other Disorders Of Coccyx 12/10/2011 ELLY DOUGLAS MD 724.7 9 Other Disorders Of Coccyx 12/10/2011 CARMEN GIBBS MD 724 .79 Other Disorders Of Coccyx 12/10/2011 CARMEN GIBBS MD 724 .79 Other Disorders Of Coccyx 12/10/2011 JESSICA VILLAVICENCIO, RAQUEL Galdamez 724.79 Other Disorders Of Coccyx 12/10/2011 EMIL ROLON DO 724.79 Other Disorders Of Coccyx 12/10/2011 CARMEN GIBBS MD 724 .79 Other Disorders Of Coccyx 12/10/2011 SAI MD, CARMEN N 724 .79 Other Disorders Of Coccyx 12/10/2011 OSMAN ALVAREZ APRN T 724.79 Other Disorders Of Coccyx 12/10/2011 ROLON [...] R 724.79 Other Disorders Of Coccyx 12/10/2011 LETICIA WADE APRNA L 724 .79 Other Disorders Of Coccyx 12/10/2011 BRENNA LOBATO APRN R 724.79 Other Disorders Of Coccyx 12/10/2011 CARMEN GIBBS MD N 724 .79 Other Disorders Of Coccyx 12/10/2011 ROLON DO, EMIL K 724.79 Other Disorders Of Coccyx 12/10/2011 MICHELINE BAUMANN RAQUEL R 724.79 Other Disorders Of Coccyx 12/10/2011 CARMEN GIBBS MD N 724 .79 Other Disorders Of Coccyx 12/10/2011 BRENNA LOBATO APRN R 724.79 Other Disorders Of Coccyx 12/10/2011 MICHELINE BAUMANN RAQUEL R 724.79 Other Disorders Of Coccyx 12/10/2011 CARMEN GIBBS MD N 724 .79 Other Disorders Of Coccyx 12/10/2011 SHERI BAUMANN ANSON L 724 .79 Other Disorders Of Coccyx 12/10/2011 SHERI BAUMANN ANSON L 724 .79 Other Disorders Of Coccyx 12/10/2011 MALACHI TOBIAS APRNINA R 724.79 Other Disorders Of Coccyx 12/10/2011 ELLIOT MORENO DDS 724.79 Other Disorders Of Coccyx 12/10/2011 CARMEN GIBBS MD N 724 .79 Other Disorders Of Coccyx 12/10/2011 GONZALES DOSUDHIRA K 724.79 Other Disorders Of Coccyx 12/10/2011 MADL ASSURANCE ENGINEER, ANSON L 724 .79 Other Disorders Of Coccyx 12/10/2011 CARMEN GIBBS MD N 724 .79 Other Disorders Of Coccyx 12/10/2011 CARMEN GIBBS MD N 724 .79 Other Disorders Of Coccyx 12/10/2011 MADL ASSURANCE ENGINEER, ANSON L 724 .79 Other Disorders Of Coccyx 12/10/2011 ROLON DO, EMIL K 724.79 Other Disorders Of Coccyx 12/31/2011 DEB VILLAVICENCIO, REGINO N V25.11 IUD INSERTION 12/31/2011 V25.11 IUD INSERTION 12/31/2011 BRENNA LOBATO APRN R V25.11 IUD INSERTION 12/31/2011 SUDHIR ROLON DOA K V25.11 IUD INSERTION 12/31/2011 ELLY DOUGLAS MD V25.1 1 IUD INSERTION 12/31/2011 CARMEN GIBBS MD V25 .11 IUD INSERTION 12/31/2011 CARMEN GIBBS MD V25 .11 IUD INSERTION 12/31/2011 JESSICA VILLAVICENCIO, RAQUEL Galdamez V25.11 IUD INSERTION 12/31/2011 ROLON , EMIL K V25.11 IUD INSERTION 12/31/2011 CARMEN GIBBS MD N V25 .11 IUD INSERTION 12/31/2011 CARMEN GIBBS MD V25 .11 IUD INSERTION 12/31/2011 OSMAN ALVAREZ APRN V25.11 IUD INSERTION 12/31/2011 GONZALES GAMING, EMIL K V25.11 IUD INSERTION 12/31/2011 ROLON , EMIL K V25.11 IUD INSERTION 12/31/2011 ROLON DO, EMIL K V25.11 IUD INSERTION 12/31/2011 OSMAN ALVAREZ APRN V25.11 IUD INSERTION 12/31/2011 ROLON , EMIL K V25.11 IUD INSERTION 12/31/2011 ROLON DO, EMIL K V25.11 IUD INSERTION 12/31/2011 BRENNA LOBATO APRN R V25.11 IUD INSERTION 12/31/2011 SHERI ASSURANCE ENGINEERANSON L V25 .11 IUD INSERTION 12/31/2011 LOBATO ASSURANCE ENGINEER, BRENNA R V25.11 IUD INSERTION 12/31/2011 CARMEN GIBBS MD N V25 .11 IUD INSERTION 12/31/2011 SUDHIR ROLON DOA K V25.11 IUD INSERTION 12/31/2011 MICHELINE BAUMANN, RAQUEL R V25.11 IUD INSERTION 12/31/2011 CARMEN GIBBS MD V25 .11 IUD INSERTION 12/31/2011 LUIS ALFREDO BAUMANN, BRENNA R V25.11 IUD INSERTION 12/31/2011 MICHELINE BAUMANN, RAQUEL R V25.11 IUD INSERTION 12/31/2011 CARMEN GIBBS MD V25 .11 IUD INSERTION 12/31/2011 SHERI ASSURANCE ENGINEER, ANSON L V25 .11 IUD INSERTION 12/31/2011 SHERI ASSURANCE ENGINEER, ANSON L V25 .11 IUD INSERTION 12/31/2011 MICHELINE BAUMANN, RAQUEL R V25.11 IUD INSERTION 12/31/2011 JOSH VILLAVICENCIO, ELLIOT J V25.11 IUD INSERTION 12/31/2011 CARMEN GIBBS MD V25 .11 IUD INSERTION 12/31/2011 EMIL ROLON DO K V25.11 IUD INSERTION 12/31/2011 SHERI BAUMANN, ANSON L V25 .11 IUD INSERTION 12/31/2011 CARMEN GIBBS MD N V25 .11 IUD INSERTION 12/31/2011 CARMEN GIBBS MD V25 .11 IUD INSERTION 12/31/2011 SHERI BAUMANN, ANSON L V25 .11 IUD INSERTION 12/31/2011 SUDHIR ROLON DOA K V25.11 IUD INSERTION 01/21/2012 DEB VILLAVICENCIO, REGINO Christie 078.11 Condyloma Acuminatum 01/21/2012 078.11 Con dyloma Acuminatum 01/21/2012 BRENNA LOBATO APRN R 078.11 Condyloma Acuminatum 01/21/2012 GONZALES GAMING EMIL K 078.11 Condyloma Acuminatum 01/21/2012 STELLA [place], ELLY 078.1 1 Condyloma Acuminatum 01/21/2012 CARMEN GIBBS MD 078 .11 Condyloma Acuminatum 01/21/2012 CARMEN GIBBS MD N 078 .11 Condyloma Acuminatum 01/21/2012 JESSICA JETERS, RAQUEL M 078.11 Condyloma Acuminatum 01/21/2012 ROLON DO, EMIL K 078.11 Condyloma Acuminatum 01/21/2012 CARMEN GIBBS MD N 078 .11 Condyloma Acuminatum 01/21/2012 CARMEN GIBBS MD 078 .11 Condyloma Acuminatum 01/21/2012 OSMAN ALVAREZ APRN 078.11 Condyloma Acuminatum 01/21/2012 ROLON DO, EMIL K 078.11 Condyloma Acuminatum 01/21/2012 ROLON DO, EMIL K 078.11 Condyloma Acuminatum 01/21/2012 ROLON DO, EMIL K 078.11 Condyloma Acuminatum 01/21/2012 OSMAN ALVAREZ APRN 078.11 Condyloma Acuminatum 01/21/2012 ROLON DO, EMIL K 078.11 Condyloma Acuminatum 01/21/2012 ROLON DO, EMIL K 078.11 Condyloma Acuminatum 01/21/2012 CRISTINO LOBATO APRNIA R 078.11 Condyloma Acuminatum 01/21/2012 ANSON WADE APRN L 078 .11 Condyloma Acuminatum 01/21/2012 CRISTINO LOBATO APRNIA R 078.11 Condyloma Acuminatum 01/21/2012 CARMEN GIBBS MD N 078 .11 Condyloma Acuminatum 01/21/2012 ROLON DO, EMIL K 078.11 Condyloma Acuminatum 01/21/2012 MICHELINE BAUMANN RAQUEL R 078.11 Condyloma Acuminatum 01/21/2012 CARMEN GIBBS MD N 078 .11 Condyloma Acuminatum 01/21/2012 BRENNA LOBATO APRN R 078.11 Condyloma Acuminatum 01/21/2012 MALACHI TOBIAS APRNINA R 078.11 Condyloma Acuminatum 01/21/2012 CARMEN GIBBS MD 078 .11 Condyloma Acuminatum 01/21/2012 MADL ASSURANCE ENGINEER, ANSON L 078 .11 Condyloma Acuminatum 01/21/2012 SHERI ASSURANCE ENGINEER, ANSON L 078 .11 Condyloma Acuminatum 01/21/2012 RAQUEL TOBIAS APRN 078.11 Condyloma Acuminatum 01/21/2012 JOSH VILLAVICENCIO, ELLIOT Alston 078.11 Condyloma Acuminatum 01/21/2012 CARMEN GIBBS MD 078 .11 Condyloma Acuminatum 01/21/2012 EMIL ROLON DO 078.11 Condyloma Acuminatum 01/21/2012 SHERI BAUMANN, ANSON L 078 .11 Condyloma Acuminatum 01/21/2012 CARMEN GIBBS MD 078 .11 Condyloma Acuminatum 01/21/2012 CARMEN GIBBS MD 078 .11 Condyloma Acuminatum 01/21/2012 SHERI BAUMANN, ANSON L 078 .11 Condyloma Acuminatum 01/21/2012 EMIL ROLON DO 078.11 Condyloma Acuminatum 02/02/2012 Ot 719.45 BOGDAN NT PAIN-PELVIS 02/02/2012 Ot 726.5 ENTH ESOPATHY OF HIP 03/10/2012 Ot 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 03/18/2012 DEB VILLAVICENCIO, REGINO Christie 388.70 Otalgia 03/18/2012 388.70 Otalgia 03/18/2012 BRENNA LOBATO APRN 388.70 Otalgia 03/18/2012 EMIL ROLON DO 388.70 Otalgia 03/18/2012 ELLY DOUGLAS MD 388.7 0 Otalgia 03/18/2012 CARMEN GIBBS MD 388 .70 Otalgia 03/18/2012 CARMEN GIBBS MD 388 .70 Otalgia 03/18/2012 RAQUEL LOPEZ DDS 388.70 Otalgia 03/18/2012 EMIL ROLON DO K 388.70 Otalgia 03/18/2012 CARMEN GIBBS MD 388 .70 Otalgia 03/18/2012 CARMEN GIBBS MD 388 .70 Otalgia 03/18/2012 OSMAN ALVAREZ APRN 388.70 Otalgia 03/18/2012 ROLON DO, EMIL K 388.70 Otalgia 03/18/2012 ROLON DO, EMIL K 388.70 Otalgia 03/18/2012 ROLON DO, EMIL K 388.70 Otalgia 03/18/2012 OSMAN ALVAREZ APRN 388.70 Otalgia 03/18/2012 ROLON DO, EMIL K 388.70 Otalgia 03/18/2012 ROLON DO, EMIL K 388.70 Otalgia 03/18/2012 LUIS ALFREDO BAUMANN BRENNA R 388.70 Otalgia 03/18/2012 SHERI BAUMANN, ANSON L 388 .70 Otalgia 03/18/2012 LUIS ALFREDO BAUMANN, BRENNA R 388.70 Otalgia 03/18/2012 CARMEN GIBBS MD 388 .70 Otalgia 03/18/2012 ROLON DO, EMIL K 388.70 Otalgia 03/18/2012 MICHELINE BAUMANN RAQUEL R 388.70 Otalgia 03/18/2012 CARMEN GIBBS MD 388 .70 Otalgia 03/18/2012 BRENNA LOBATO APRN R 388.70 Otalgia 03/18/2012 MICHELINE BAUMANN RAQUEL R 388.70 Otalgia 03/18/2012 CARMEN GIBBS MD 388 .70 Otalgia 03/18/2012 LETICIA WADE APRNA L 388 .70 Otalgia 03/18/2012 SHERI BAUMANN ANSON L 388 .70 Otalgia 03/18/2012 MICHELINE BAUMANN RAQUEL R 388.70 Otalgia 03/18/2012 ELLIOT MORENO DDS 388.70 Otalgia 03/18/2012 CARMEN GIBBS MD 388 .70 Otalgia 03/18/2012 ROLON DO, EMIL K 388.70 Otalgia 03/18/2012 SHERI BAUMANN ANSON L 388 .70 Otalgia 03/18/2012 CARMEN GIBBS MD 388 .70 Otalgia 03/18/2012 CARMEN GIBBS MD 388 .70 Otalgia 03/18/2012 SHERI BAUMANN ANSON L 388 .70 Otalgia 03/18/2012 ROLON DO, EMIL K 388.70 Otalgia 03/20/2012 REGINO BOYD DDS 719.47 Pain In Joint Involving Ankle And Foot 03/20/2012 719.47 Poncho n In Joint Involving Ankle And Foot 03/20/2012 BRENNA LOBATO APRN 719.47 Pain In Joint Involving Ankle And Foot 03/20/2012 GONZALES DOSUDHIRA K 719.47 Pain In Joint Involving Ankle And Foot 03/20/2012 ELLY DOUGLAS MD 719.4 7 Pain In Joint Involving Ankle And Foot 03/20/2012 CARMEN GIBBS MD 719 .47 Pain In Joint Involving Ankle And Foot 03/20/2012 CARMEN GIBBS MD 719 .47 Pain In Joint Involving Ankle And Foot 03/20/2012 RAQUEL LOPEZ DDS 719.47 Pain In Joint Involving Ankle And Foot 03/20/2012 ROLON DOSUDHIRA K 719.47 Pain In Joint Involving Ankle And Foot 03/20/2012 CARMEN GIBBS MD 719 .47 Pain In Joint Involving Ankle And Foot 03/20/2012 CARMEN GIBBS MD 719 .47 Pain In Joint Involving Ankle And Foot 03/20/2012 OSMAN ALVAREZ APRN 719.47 Pain In Joint Involving Ankle And Foot 03/20/2012 GONZALES DO EMIL K 719.47 Pain In Joint Involving Ankle And Foot 03/20/2012 ROLON DO, EMIL K 719.47 Pain In Joint Involving Ankle And Foot 03/20/2012 ROLON DO EMIL K 719.47 Pain In Joint Involving Ankle And Foot 03/20/2012 OSMAN ALVAREZ APRN 719.47 Pain In Joint Involving Ankle And Foot 03/20/2012 ROLON DO, EMIL K 719.47 Pain In Joint Involving Ankle And Foot 03/20/2012 ROLON DO, EMIL K 719.47 Pain In Joint Involving Ankle And Foot 03/20/2012 BRENNA LOBATO APRN 719.47 Pain In Joint Involving Ankle And Foot 03/20/2012 ANSON WADE APRN 719 .47 Pain In Joint Involving Ankle And Foot 03/20/2012 BRENNA LOBATO APRN 719.47 Pain In Joint Involving Ankle And Foot 03/20/2012 CARMEN GIBBS MD 719 .47 Pain In Joint Involving Ankle And Foot 03/20/2012 EMIL ROLON DO 719.47 Pain In Joint Involving Ankle And Foot 03/20/2012 RAQUEL TOBIAS APRN R 719.47 Pain In Joint Involving Ankle And Foot 03/20/2012 CARMEN GIBBS MD 719 .47 Pain In Joint Involving Ankle And Foot 03/20/2012 BRENNA LOBATO APRN R 719.47 Pain In Joint Involving Ankle And Foot 03/20/2012 RAQUEL TOBIAS APRN R 719.47 Pain In Joint Involving Ankle And Foot 03/20/2012 CARMEN GIBBS MD 719 .47 Pain In Joint Involving Ankle And Foot 03/20/2012 ANSON WADE APRN L 719 .47 Pain In Joint Involving Ankle And Foot 03/20/2012 ANSON WADE APRN 719 .47 Pain In Joint Involving Ankle And Foot 03/20/2012 RAQUEL TOBIAS APRN R 719.47 Pain In Joint Involving Ankle And Foot 03/20/2012 ELLIOT MORENO DDS 719.47 Pain In Joint Involving Ankle And Foot 03/20/2012 CARMEN GIBBS MD 719 .47 Pain In Joint Involving Ankle And Foot 03/20/2012 EMIL ROLON DO 719.47 Pain In Joint Involving Ankle And Foot 03/20/2012 ANSON WADE APRN L 719 .47 Pain In Joint Involving Ankle And Foot 03/20/2012 CARMEN GIBBS MD 719 .47 Pain In Joint Involving Ankle And Foot 03/20/2012 CARMEN GIBBS MD 719 .47 Pain In Joint Involving Ankle And Foot 03/20/2012 ANSON WADE APRN 719 .47 Pain In Joint Involving Ankle And Foot 03/20/2012 EMIL ROLON DO K 719.47 Pain In Joint Involving Ankle And Foot 04/02/2012 REGINO BOYD DDS 789.01 ABDOMINAL PAIN RIGHT UPPER QUADRANT 04/02/2012 789.01 ABD OMINAL PAIN RIGHT UPPER QUADRANT 04/02/2012 BRENNA LOBATO APRN R 789.01 ABDOMINAL PAIN RIGHT UPPER QUADRANT 04/02/2012 EMIL ROLON DO K 789.01 ABDOMINAL PAIN RIGHT UPPER QUADRANT 04/02/2012 ELLY DOUGLAS MD9.0 1 ABDOMINAL PAIN RIGHT UPPER QUADRANT 04/02/2012 CARMEN GIBBS MD N 789 .01 ABDOMINAL PAIN RIGHT UPPER QUADRANT 04/02/2012 CARMEN GIBBS MD N 789 .01 ABDOMINAL PAIN RIGHT UPPER QUADRANT 04/02/2012 RAQUEL LOPEZ DDS 789.01 ABDOMINAL PAIN RIGHT UPPER QUADRANT 04/02/2012 ROLON DO, EMIL K 789.01 ABDOMINAL PAIN RIGHT UPPER QUADRANT 04/02/2012 CARMEN GIBBS MD N 789 .01 ABDOMINAL PAIN RIGHT UPPER QUADRANT 04/02/2012 CARMEN GIBBS MD N 789 .01 ABDOMINAL PAIN RIGHT UPPER QUADRANT 04/02/2012 OSMAN ALVAREZ APRN T 789.01 ABDOMINAL PAIN RIGHT UPPER QUADRANT 04/02/2012 ROLON DO, EMIL K 789.01 ABDOMINAL PAIN RIGHT UPPER QUADRANT 04/02/2012 ROLON DO, EMIL K 789.01 ABDOMINAL PAIN RIGHT UPPER QUADRANT 04/02/2012 ROLON DO, EMIL K 789.01 ABDOMINAL PAIN RIGHT UPPER QUADRANT 04/02/2012 OSMAN ALVAREZ APRN T 789.01 ABDOMINAL PAIN RIGHT UPPER QUADRANT 04/02/2012 ROLON DO, EMIL K 789.01 ABDOMINAL PAIN RIGHT UPPER QUADRANT 04/02/2012 ROLON DO, EMIL K 789.01 ABDOMINAL PAIN RIGHT UPPER QUADRANT 04/02/2012 BRENNA LOBATO APRN R 789.01 ABDOMINAL PAIN RIGHT UPPER QUADRANT 04/02/2012 ANSON WADE APRN L 789 .01 ABDOMINAL PAIN RIGHT UPPER QUADRANT 04/02/2012 BRENNA LOBATO APRN R 789.01 ABDOMINAL PAIN RIGHT UPPER QUADRANT 04/02/2012 CARMEN GIBBS MD N 789 .01 ABDOMINAL PAIN RIGHT UPPER QUADRANT 04/02/2012 ROLON DO, EMIL K 789.01 ABDOMINAL PAIN RIGHT UPPER QUADRANT 04/02/2012 MALACHI TOBIAS APRNINA R 789.01 ABDOMINAL PAIN RIGHT UPPER QUADRANT 04/02/2012 CARMEN GIBBS MD N 789 .01 ABDOMINAL PAIN RIGHT UPPER QUADRANT 04/02/2012 BRENNA LOBATO APRN R 789.01 ABDOMINAL PAIN RIGHT UPPER QUADRANT 04/02/2012 RAQUEL TOBIAS APRN R 789.01 ABDOMINAL PAIN RIGHT UPPER QUADRANT 04/02/2012 CARMEN GIBBS MD N 789 .01 ABDOMINAL PAIN RIGHT UPPER QUADRANT 04/02/2012 SHERI BAUMANN, ANSON L 789 .01 ABDOMINAL PAIN RIGHT UPPER QUADRANT 04/02/2012 SHERI BAUMANN, ANSON L 789 .01 ABDOMINAL PAIN RIGHT UPPER QUADRANT 04/02/2012 RAQUEL TOBIAS APRN R 789.01 ABDOMINAL PAIN RIGHT UPPER QUADRANT 04/02/2012 JOSH VILLAVICENCIO, ELLIOT Alston 789.01 ABDOMINAL PAIN RIGHT UPPER QUADRANT 04/02/2012 CARMEN GIBBS MD N 789 .01 ABDOMINAL PAIN RIGHT UPPER QUADRANT 04/02/2012 EMIL ROLON DO K 789.01 ABDOMINAL PAIN RIGHT UPPER QUADRANT 04/02/2012 SHERI BAUMANN, ANSON L 789 .01 ABDOMINAL PAIN RIGHT UPPER QUADRANT 04/02/2012 CARMEN GIBBS MD N 789 .01 ABDOMINAL PAIN RIGHT UPPER QUADRANT 04/02/2012 CARMEN GIBBS MD N 789 .01 ABDOMINAL PAIN RIGHT UPPER QUADRANT 04/02/2012 ANSON WADE APRN L 789 .01 ABDOMINAL PAIN RIGHT UPPER QUADRANT 04/02/2012 EMIL ROLON DO K 789.01 ABDOMINAL PAIN RIGHT UPPER QUADRANT 04/02/2012 Ot 599.0 URIN TRACT INFECTION NOS 04/02/2012 Ot 789.00 ABD OMINAL PAIN, UNSPECIFIED SITE 04/02/2012 Ot V45.51 PRE SENCE OF INTRAUTERINE CONTRACEPTIVE D 04/10/2012 REGINO BOYD DDS 278.01 OBESITY, MORBID (BMI >40) 04/10/2012 278.01 OBE SITY, MORBID (BMI >40) 04/10/2012 BRENNA LOBATO APRN R 278.01 OBESITY, MORBID (BMI >40) 04/10/2012 EMIL ROLON DO 278.01 OBESITY, MORBID (BMI >40) 04/10/2012 ELLY DOUGLAS MD 278.0 1 OBESITY, MORBID (BMI >40) 04/10/2012 CARMEN GIBBS MD N 278 .01 OBESITY, MORBID (BMI >40) 04/10/2012 CARMEN GIBBS MD N 278 .01 OBESITY, MORBID (BMI >40) 04/10/2012 RAQUEL LOPEZ DDS 278.01 OBESITY, MORBID (BMI >40) 04/10/2012 EMIL ROLON DO 278.01 OBESITY, MORBID (BMI >40) 04/10/2012 CARMEN GIBBS MD 278 .01 OBESITY, MORBID (BMI >40) 04/10/2012 CARMEN GIBBS MD 278 .01 OBESITY, MORBID (BMI >40) 04/10/2012 OSMAN ALVAREZ APRN 278.01 OBESITY, MORBID (BMI >40) 04/10/2012 ROLON DO, EMIL K 278.01 OBESITY, MORBID (BMI >40) 04/10/2012 ROLON DO, EMIL K 278.01 OBESITY, MORBID (BMI >40) 04/10/2012 ROLON DO, EMIL K 278.01 OBESITY, MORBID (BMI >40) 04/10/2012 OSMAN ALVAREZ APRN 278.01 OBESITY, MORBID (BMI >40) 04/10/2012 GONZALES GAMING, EMIL K 278.01 OBESITY, MORBID (BMI >40) 04/10/2012 ROLON , EMIL K 278.01 OBESITY, MORBID (BMI >40) 04/10/2012 BRENNA LOBATO APRN R 278.01 OBESITY, MORBID (BMI >40) 04/10/2012 ANSON WADE APRN 278 .01 OBESITY, MORBID (BMI >40) 04/10/2012 BRENNA LOBATO APRN R 278.01 OBESITY, MORBID (BMI >40) 04/10/2012 CARMEN GIBBS MD 278 .01 OBESITY, MORBID (BMI >40) 04/10/2012 EMIL ROLON DO K 278.01 OBESITY, MORBID (BMI >40) 04/10/2012 RAQUEL TOBIAS APRN R 278.01 OBESITY, MORBID (BMI >40) 04/10/2012 CARMEN GIBBS MD 278 .01 OBESITY, MORBID (BMI >40) 04/10/2012 BRENNA LOBATO APRN R 278.01 OBESITY, MORBID (BMI >40) 04/10/2012 RAQUEL TOBIAS APRN R 278.01 OBESITY, MORBID (BMI >40) 04/10/2012 CARMEN GIBBS MD 278 .01 OBESITY, MORBID (BMI >40) 04/10/2012 ANSON WADE APRN 278 .01 OBESITY, MORBID (BMI >40) 04/10/2012 ANSON WADE APRN L 278 .01 OBESITY, MORBID (BMI >40) 04/10/2012 RAQUEL TOBIAS APRN 278.01 OBESITY, MORBID (BMI >40) 04/10/2012 ELLIOT MORENO DDS 278.01 OBESITY, MORBID (BMI >40) 04/10/2012 CARMEN GIBBS MD 278 .01 OBESITY, MORBID (BMI >40) 04/10/2012 EMIL ROLON DO 278.01 OBESITY, MORBID (BMI >40) 04/10/2012 ANSON WADE APRN 278 .01 OBESITY, MORBID (BMI >40) 04/10/2012 CARMEN GIBBS MD 278 .01 OBESITY, MORBID (BMI >40) 04/10/2012 CARMEN GIBBS MD 278 .01 OBESITY, MORBID (BMI >40) 04/10/2012 ANSON WADE APRN 278 .01 OBESITY, MORBID (BMI >40) 04/10/2012 EMIL ROLON DO 278.01 OBESITY, MORBID (BMI >40) 04/15/2012 Ot 327.23 OBS TRUCTIVE SLEEP APNEA (ADULT) (PEDIATR 04/30/2012 Ot 327.23 OBS TRUCTIVE SLEEP APNEA (ADULT) (PEDIATR 05/05/2012 REGINO BOYD DDS 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 05/05/2012 216.9 Luigi gn Neoplasm Of Skin Site Unspecified 05/05/2012 BRENNA LOBATO APRN 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 05/05/2012 EMIL ROLON DO 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 05/05/2012 ELLY DOUGLAS MD 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 05/05/2012 CARMEN GIBBS MD 216 .9 Benign Neoplasm Of Skin Site Unspecified 05/05/2012 CARMEN GIBBS MD 216 .9 Benign Neoplasm Of Skin Site Unspecified 05/05/2012 RAQUEL LOPEZ DDS 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 05/05/2012 EMIL ROLON DO 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 05/05/2012 CARMEN GIBBS MD 216 .9 Benign Neoplasm Of Skin Site Unspecified 05/05/2012 CARMEN GIBBS MD 216 .9 Benign Neoplasm Of Skin Site Unspecified 05/05/2012 KIM ASSURANCE ENGINEER, OSMAN T 21 6.9 Benign Neoplasm Of Skin Site Unspecified 05/05/2012 ROLON DO, EMIL K 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 05/05/2012 ROLON DO, EMIL K 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 05/05/2012 ROLON DO, EMIL K 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 05/05/2012 OSMAN ALVAREZ APRN 21 6.9 Benign Neoplasm Of Skin Site Unspecified 05/05/2012 ROLNO DO, EMIL K 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 05/05/2012 ROLON DO, EMIL K 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 05/05/2012 LUIS ALFREDO YUN, BRENNA R 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 05/05/2012 JOSE FRANCISCOL ASSURANCE ENGINEER, ANSON L 216 .9 Benign Neoplasm Of Skin Site Unspecified 05/05/2012 LUIS ALFREDO YUN BRENNA R 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 05/05/2012 CARMEN GIBBS MD 216 .9 Benign Neoplasm Of Skin Site Unspecified 05/05/2012 ROLON DO, EMIL K 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 05/05/2012 MICHELINE BAUMANN, RAQUEL R 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 05/05/2012 CARMEN GIBBS MD 216 .9 Benign Neoplasm Of Skin Site Unspecified 05/05/2012 LUIS ALFREDO BAUMANN BRENNA R 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 05/05/2012 MICHELINE BAUMANN, RAQUEL R 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 05/05/2012 CARMEN GIBBS MD 216 .9 Benign Neoplasm Of Skin Site Unspecified 05/05/2012 SHERI YUN, ANSON L 216 .9 Benign Neoplasm Of Skin Site Unspecified 05/05/2012 SHERI YUN ANSON L 216 .9 Benign Neoplasm Of Skin Site Unspecified 05/05/2012 MICHELINE BAUMANN, RAQUEL R 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 05/05/2012 JOSH VILLAVICENCIO, ELLIOT Alston 21 6.9 Benign Neoplasm Of Skin Site Unspecified 05/05/2012 CARMEN GIBBS MD 216 .9 Benign Neoplasm Of Skin Site Unspecified 05/05/2012 ROLON DO, EMIL K 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 05/05/2012 SHERI BAUMANN, ANSON L 216 .9 Benign Neoplasm Of Skin Site Unspecified 05/05/2012 CARMEN GIBBS MD N 216 .9 Benign Neoplasm Of Skin Site Unspecified 05/05/2012 CARMEN GIBBS MD N 216 .9 Benign Neoplasm Of Skin Site Unspecified 05/05/2012 SHERI BAUMANN, ANSON L 216 .9 Benign Neoplasm Of Skin Site Unspecified 05/05/2012 ROLON DO, EMIL K 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 05/12/2012 DEB VILLAVICENCIO, REGINO N 461.9 Sinusitis Acute 05/12/2012 461.9 Sinu sitis Acute 05/12/2012 BRENNA LOBATO APRN R 461.9 Sinusitis Acute 05/12/2012 ROLON DO, EMIL K 461.9 Sinusitis Acute 05/12/2012 ELLY DOUGLAS MD 461.9 Sinusitis Acute 05/12/2012 CARMEN GIBBS MD N 461 .9 Sinusitis Acute 05/12/2012 CARMEN GIBBS MD N 461 .9 Sinusitis Acute 05/12/2012 RAQUEL LOPEZ DDS 461.9 Sinusitis Acute 05/12/2012 ROLON DO, EMIL K 461.9 Sinusitis Acute 05/12/2012 CARMEN GIBBS MD N 461 .9 Sinusitis Acute 05/12/2012 CARMEN GIBBS MD N 461 .9 Sinusitis Acute 05/12/2012 OSMAN ALVAREZ APRN 46 1.9 Sinusitis Acute 05/12/2012 ROLON DO, EMIL K 461.9 Sinusitis Acute 05/12/2012 ROLON DO, EMIL K 461.9 Sinusitis Acute 05/12/2012 ROLON DO, EMIL K 461.9 Sinusitis Acute 05/12/2012 OSMAN ALVAREZ APRN 46 1.9 Sinusitis Acute 05/12/2012 ROLON DO, EMIL K 461.9 Sinusitis Acute 05/12/2012 ROLON DO, EMIL K 461.9 Sinusitis Acute 05/12/2012 CRISTINO LOBATO APRNIA R 461.9 Sinusitis Acute 05/12/2012 ANSON WADE APRN L 461 .9 Sinusitis Acute 05/12/2012 BRENNA LOBATO APRN R 461.9 Sinusitis Acute 05/12/2012 CARMEN GIBBS MD N 461 .9 Sinusitis Acute 05/12/2012 EMIL ROLON DO K 461.9 Sinusitis Acute 05/12/2012 MICHELINE BAUMANN, RAQUEL R 461.9 Sinusitis Acute 05/12/2012 CARMEN GIBBS MD N 461 .9 Sinusitis Acute 05/12/2012 BRENNA LOBATO APRN R 461.9 Sinusitis Acute 05/12/2012 MALACHI TOBIAS APRNINA R 461.9 Sinusitis Acute 05/12/2012 CARMEN GIBBS MD N 461 .9 Sinusitis Acute 05/12/2012 ANSON WADE APRN L 461 .9 Sinusitis Acute 05/12/2012 ANSON WADE APRN L 461 .9 Sinusitis Acute 05/12/2012 RAQUEL TOBIAS APRN R 461.9 Sinusitis Acute 05/12/2012 JOSH VILLAVICENCIO, ELLIOT Alston 46 1.9 Sinusitis Acute 05/12/2012 CARMEN GIBBS MD N 461 .9 Sinusitis Acute 05/12/2012 EMIL ROLON DO K 461.9 Sinusitis Acute 05/12/2012 ANSON WADE APRN L 461 .9 Sinusitis Acute 05/12/2012 CARMEN GIBBS MD N 461 .9 Sinusitis Acute 05/12/2012 CARMEN GIBBS MD N 461 .9 Sinusitis Acute 05/12/2012 ANSON WADE APRN L 461 .9 Sinusitis Acute 05/12/2012 EMIL ROLON DO K 461.9 Sinusitis Acute 05/19/2012 REGINO BOYD DDS N 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 05/19/2012 REGINO BOYD DDS N V58.32 SUTURE REMOVAL 05/19/2012 238.2 Neop lasm Of Uncertain Behavior Of Skin 05/19/2012 V58.32 Sut ure Removal 05/19/2012 BRENNA LOBATO APRN R 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 05/19/2012 BRENNA LOBATO APRN R V58.32 Suture Removal 05/19/2012 ROLON DO, EMIL K 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 05/19/2012 ROLON DO, EMIL K V58.32 Suture Removal 05/19/2012 ELLY DOUGLAS MD 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 05/19/2012 ELLY DOUGLAS MD V58.3 2 Suture Removal 05/19/2012 CARMEN GIBBS MD N 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 05/19/2012 CARMEN GIBBS MD N V58 .32 Suture Removal 05/19/2012 CARMEN GIBBS MD N 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 05/19/2012 CARMEN GIBBS MD V58 .32 Suture Removal 05/19/2012 JESSICARAQUEL HENDERSON DDS 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 05/19/2012 RAQUEL LOPEZ DDS V58.32 Suture Removal 05/19/2012 GONZALES GAMING EMIL K 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 05/19/2012 ROLON DO EMIL K V58.32 Suture Removal 05/19/2012 CARMEN GIBBS MD N 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 05/19/2012 CARMEN GIBBS MD N V58 .32 Suture Removal 05/19/2012 CARMEN GIBBS MD N 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 05/19/2012 CARMEN GIBBS MD N V58 .32 Suture Removal 05/19/2012 OSMAN ALVAREZ APRN 23 8.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 05/19/2012 OSMAN ALVAREZ APRN V58.32 Suture Removal 05/19/2012 ROLON DO, EMIL [...] V58.32 Suture Removal 05/19/2012 OSMAN ALVAREZ APRN 23 8.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 05/19/2012 OSMAN ALVAREZ APRN V58.32 Suture Removal 05/19/2012 ROLON DO, EMIL K 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 05/19/2012 ROLON DO, EMIL K V58.32 Suture Removal 05/19/2012 ROLON DO, EMIL K 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 05/19/2012 ROLON DO, EMIL K V58.32 Suture Removal 05/19/2012 LUIS ALFREDO BAUMANN BRENNA R 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 05/19/2012 LOBATO PASTOR BRENNA R V58.32 Suture Removal 05/19/2012 MADL ASSURANCE ENGINEER ANSON L 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 05/19/2012 MADL ASSURANCE ENGINEER, ANSON L V58 .32 Suture Removal 05/19/2012 EMERY LOBATO APRNRICIA R 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 05/19/2012 LOBATO PASTOR BRENNA R V58.32 Suture Removal 05/19/2012 CARMEN GIBBS MD 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 05/19/2012 CARMEN GIBBS MD V58 .32 Suture Removal 05/19/2012 ROLON DO, EMIL K 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 05/19/2012 ROLON DO, EMIL K V58.32 Suture Removal 05/19/2012 MICHELINE BAUMANN RAQUEL R 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 05/19/2012 MICHELINE BAUMANN RAQUEL R V58.32 Suture Removal 05/19/2012 CARMEN GIBBS MD N 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 05/19/2012 CARMEN GIBBS MD V58 .32 Suture Removal 05/19/2012 EMERY LOBATO APRNRICIA R 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 05/19/2012 EMERY LOBATO APRNRICIA R V58.32 Suture Removal 05/19/2012 MICHELINE BAUMANN, RAQUEL R 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 05/19/2012 MICHELINE BAUMANN RAQUEL R V58.32 Suture Removal 05/19/2012 CARMEN GIBBS MD N 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 05/19/2012 CARMEN GIBBS MD V58 .32 Suture Removal 05/19/2012 LETICIA WADE APRNA L 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 05/19/2012 SHERI BAUMANN, ANSON L V58 .32 Suture Removal 05/19/2012 MADL ASSURANCE ENGINEER, ANSON L 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 05/19/2012 MADL ASSURANCE ENGINEER, ANSON L V58 .32 Suture Removal 05/19/2012 MICHELINE ASSURANCE ENGINEER, RAQUEL R 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 05/19/2012 MICHELINE ASSURANCE ENGINEER, RAQUEL R V58.32 Suture Removal 05/19/2012 WHITE DDS, ELLIOT J 23 8.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 05/19/2012 WHITE DDS, ELLIOT J V58.32 Suture Removal 05/19/2012 CARMEN GIBBS MD 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 05/19/2012 CARMEN GIBBS MD V58 .32 Suture Removal 05/19/2012 EMIL ROLON DO 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 05/19/2012 EMIL ROLON DO V58.32 SUTURE REMOVAL 05/19/2012 ANSON WADE APRN L 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 05/19/2012 LETICIA WADE APRNA L V58 .32 Suture Removal 05/19/2012 CARMEN GIBBS MD N 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 05/19/2012 CARMEN GIBBS MD V58 .32 Suture Removal 05/19/2012 CARMEN GIBBS MD 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 05/19/2012 CARMEN GIBBS MD V58 .32 Suture Removal 05/19/2012 LETICIA WADE APRNA L 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 05/19/2012 LETICIA WADE APRNA L V58 .32 Suture Removal 05/19/2012 EMIL ROLON DO 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 05/19/2012 EMIL ROLON DO V58.32 Suture Removal 05/28/2012 Ot 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 05/28/2012 Ot 530.81 ESO PHAGEAL REFLUX 06/03/2012 Ot 599.0 URIN TRACT INFECTION NOS 06/03/2012 Ot 625.9 FEM GENITAL SYMPTOMS NOS 07/02/2012 704.1 HIRS UTISM 07/02/2012 BRENNA LOBATO APRN R 704.1 HIRSUTISM 07/02/2012 ROLON DO EMIL K 704.1 HIRSUTISM 07/02/2012 ELLY DOUGLAS MD 704.1 HIRSUTISM 07/02/2012 CARMEN GIBBS MD N 704 .1 HIRSUTISM 07/02/2012 CARMEN GIBBS MD N 704 .1 HIRSUTISM 07/02/2012 RAQUEL LOPEZ DDS 704.1 HIRSUTISM 07/02/2012 ROLON DO, EMIL K 704.1 HIRSUTISM 07/02/2012 CARMEN GIBBS MD N 704 .1 HIRSUTISM 07/02/2012 CARMEN GIBBS MD 704 .1 HIRSUTISM 07/02/2012 OSMAN ALVAREZ APRN 70 4.1 HIRSUTISM 07/02/2012 ROLON DO, EMIL K 704.1 HIRSUTISM 07/02/2012 ROLON DO EMIL K 704.1 HIRSUTISM 07/02/2012 ROLON , EMIL K 704.1 HIRSUTISM 07/02/2012 OSMAN ALVAREZ APRN 70 4.1 HIRSUTISM 07/02/2012 ROLON , EMIL K 704.1 HIRSUTISM 07/02/2012 ROLON DO, EMIL K 704.1 HIRSUTISM 07/02/2012 BRENNA LOBATO APRN R 704.1 HIRSUTISM 07/02/2012 ANSON WADE APRN 704 .1 HIRSUTISM 07/02/2012 BRENNA LOBATO APRN R 704.1 HIRSUTISM 07/02/2012 CARMEN GIBBS MD 704 .1 HIRSUTISM 07/02/2012 SUDHIR ROLON DOA K 704.1 HIRSUTISM 07/02/2012 RAQUEL TOBIAS APRN R 704.1 HIRSUTISM 07/02/2012 CARMEN GIBBS MD N 704 .1 HIRSUTISM 07/02/2012 BRENNA LOBATO APRN R 704.1 HIRSUTISM 07/02/2012 RAQUEL TOBIAS APRN R 704.1 HIRSUTISM 07/02/2012 CARMEN GIBBS MD N 704 .1 HIRSUTISM 07/02/2012 SHERI BAUMANN, ANSON L 704 .1 HIRSUTISM 07/02/2012 SHERI BAUMANN, ANSON L 704 .1 HIRSUTISM 07/02/2012 MICHELINE BAUMANN RAQUEL R 704.1 HIRSUTISM 07/02/2012 JOSH VILLAVICENCIO, ELLIOT J 70 4.1 HIRSUTISM 07/02/2012 CARMEN GIBBS MD N 704 .1 HIRSUTISM 07/02/2012 SHERI BAUMANN, ANSON L 704 .1 HIRSUTISM 07/02/2012 CARMEN GIBBS MD N 704 .1 HIRSUTISM 07/02/2012 CARMEN GIBBS MD N 704 .1 HIRSUTISM 07/02/2012 SHERI BAUMANN, ANSON L 704 .1 HIRSUTISM 07/02/2012 GONZALES GAMING, EMIL K 704.1 HIRSUTISM 07/07/2012 BRENNA LOBATO APRN R 786.2 cough 07/07/2012 ROLON DO, EMIL K 786.2 cough 07/07/2012 ELLY DOUGLAS MD 786.2 cough 07/07/2012 CARMEN GIBBS MD N 786 .2 cough 07/07/2012 CARMEN GIBBS MD N 786 .2 cough 07/07/2012 JESSICA VILLAVICENCIO, RAQUEL Galdamez 786.2 cough 07/07/2012 ROLON DO, EMIL K 786.2 cough 07/07/2012 CARMEN GIBBS MD N 786 .2 COUGH 07/07/2012 CARMEN GIBBS MD N 786 .2 COUGH 07/07/2012 OSMAN ALVAREZ APRN 78 6.2 COUGH 07/07/2012 ROLON DO, EMIL K 786.2 COUGH 07/07/2012 ROLON DO, EMIL K 786.2 COUGH 07/07/2012 ROLON DO, EMIL K 786.2 COUGH 07/07/2012 OSMAN ALVAREZ APRN 78 6.2 COUGH 07/07/2012 ROLON DO, EMIL K 786.2 COUGH 07/07/2012 ROLON DO, EMIL K 786.2 COUGH 07/07/2012 BRENNA LOBATO APRN R 786.2 COUGH 07/07/2012 MADL ASSURANCE ENGINEER, ANSON L 786 .2 COUGH 07/07/2012 LOBATO ASSURANCE ENGINEER, BRENNA R 786.2 COUGH 07/07/2012 CARMEN GIBBS MD N 786 .2 COUGH 07/07/2012 SUDHIR ROLON DOA K 786.2 COUGH 07/07/2012 MICHELINE ASSURANCE ENGINEER, RAQUEL R 786.2 COUGH 07/07/2012 CARMEN GIBBS MD N 786 .2 COUGH 07/07/2012 LUIS ALFREDO ASSURANCE ENGINEER, BRENNA R 786.2 COUGH 07/07/2012 MICHELINE ASSURANCE ENGINEER, RAQUEL R 786.2 COUGH 07/07/2012 CARMEN GIBBS MD N 786 .2 COUGH 07/07/2012 MADBenji ASSURANCE ENGINEER, ANSON L 786 .2 COUGH 07/07/2012 MADL ASSURANCE ENGINEER, ANSON L 786 .2 COUGH 07/07/2012 MICHELINE ASSURANCE ENGINEER, RAQUEL R 786.2 COUGH 07/07/2012 JOSH DDS, ELLIOT J 78 6.2 COUGH 07/07/2012 CARMEN GBIBS MD N 786 .2 COUGH 07/07/2012 SHERI BAUMANN, ANSON L 786 .2 COUGH 07/07/2012 CARMEN GIBBS MD N 786 .2 COUGH 07/07/2012 CARMEN GIBBS MD 786 .2 COUGH 07/07/2012 SHERI BAUMANN, ANSON L 786 .2 COUGH 07/07/2012 SUDHIR ROLON DOA K 786.2 COUGH 07/09/2012 Ot 493.92 AST HMA, UNSPECIFIED, W (ACUTE) EXACERBAT 07/09/2012 Ot 786.2 COUGH 08/20/2012 EMIL ROLON DO K 054.9 HERPES SIMPLEX WITHOUT COMPLICATION 08/20/2012 EMIL ROLON DO K 112.1 CANDIDIASIS VAGINAL 08/20/2012 ELLY DOUGLAS MD 054.9 HERPES SIMPLEX WITHOUT COMPLICATION 08/20/2012 ELLY DOUGLAS MD 112.1 CANDIDIASIS VAGINAL 08/20/2012 CARMEN GIBBS MD 054 .9 HERPES SIMPLEX WITHOUT COMPLICATION 08/20/2012 CARMEN GIBBS MD 112 .1 CANDIDIASIS VAGINAL 08/20/2012 CARMEN GIBBS MD 054 .9 HERPES SIMPLEX WITHOUT COMPLICATION 08/20/2012 SAI MD, CARMEN N 112 .1 CANDIDIASIS VAGINAL 08/20/2012 JESSICA DDS, RAQUEL Galdamez 054.9 HERPES SIMPLEX WITHOUT COMPLICATION 08/20/2012 JESSICA DDS, RAQUEL M 112.1 CANDIDIASIS VAGINAL 08/20/2012 ROLON DO, EMIL K 054.9 HERPES SIMPLEX WITHOUT COMPLICATION 08/20/2012 ROLON DO, EMIL K 112.1 CANDIDIASIS VAGINAL 08/20/2012 CARMEN GIBBS MD N 054 .9 HERPES SIMPLEX WITHOUT COMPLICATION 08/20/2012 CARMEN GIBBS MD N 112 .1 CANDIDIASIS VAGINAL 08/20/2012 CARMEN GIBBS MD N 054 .9 HERPES SIMPLEX WITHOUT COMPLICATION 08/20/2012 CARMEN GIBBS MD N 112 .1 CANDIDIASIS VAGINAL 08/20/2012 OSMAN ALVAREZ APRN 05 4.9 HERPES SIMPLEX WITHOUT COMPLICATION 08/20/2012 OSMAN ALVAREZ APRN 11 2.1 CANDIDIASIS VAGINAL 08/20/2012 ROLON DO, EMIL K 054.9 HERPES SIMPLEX WITHOUT COMPLICATION 08/20/2012 ROLON DO, EMIL K 112.1 CANDIDIASIS VAGINAL 08/20/2012 ROLON DO, EMIL K 054.9 HERPES SIMPLEX WITHOUT COMPLICATION 08/20/2012 ROLON DO, EMIL K 112.1 CANDIDIASIS VAGINAL 08/20/2012 ROLON DO, EMIL K 054.9 HERPES SIMPLEX WITHOUT COMPLICATION 08/20/2012 ROLON DO, EMIL K 112.1 CANDIDIASIS VAGINAL 08/20/2012 OSMAN ALVAREZ APRN 05 4.9 HERPES SIMPLEX WITHOUT COMPLICATION 08/20/2012 OSMAN ALVAREZ APRN 11 2.1 CANDIDIASIS VAGINAL 08/20/2012 ROLON DO, EMIL K 054.9 HERPES SIMPLEX WITHOUT COMPLICATION 08/20/2012 ROLON DO, EMIL K 112.1 CANDIDIASIS VAGINAL 08/20/2012 ROLON DO, EMIL K 054.9 HERPES SIMPLEX WITHOUT COMPLICATION 08/20/2012 ROLON DO, EMIL K 112.1 CANDIDIASIS VAGINAL 08/20/2012 LUIS ALFREDO BAUMANN BRENNA R 054.9 HERPES SIMPLEX WITHOUT COMPLICATION 08/20/2012 LUIS ALFREDO BAUMANN BRENNA R 112.1 CANDIDIASIS VAGINAL 08/20/2012 LETICIA WADE APRNA L 054 .9 HERPES SIMPLEX WITHOUT COMPLICATION 08/20/2012 SHERI BAUMANN ANSON L 112 .1 CANDIDIASIS VAGINAL 08/20/2012 LOBATO ASSURANCE ENGINEER, BRENNA R 054.9 HERPES SIMPLEX WITHOUT COMPLICATION 08/20/2012 LUIS ALFREDO BAUMANN, BRENNA R 112.1 CANDIDIASIS VAGINAL 08/20/2012 CARMEN GIBBS MD N 054 .9 HERPES SIMPLEX WITHOUT COMPLICATION 08/20/2012 CARMEN GIBBS MD N 112 .1 CANDIDIASIS VAGINAL 08/20/2012 ROLON DO, EMIL K 054.9 HERPES SIMPLEX WITHOUT COMPLICATION 08/20/2012 ROLON DO, EMIL K 112.1 CANDIDIASIS VAGINAL 08/20/2012 MICHELINE ASSURANCE ENGINEER, RAQUEL R 054.9 HERPES SIMPLEX WITHOUT COMPLICATION 08/20/2012 MICHELINE ASSURANCE ENGINEER, RAQUEL R 112.1 CANDIDIASIS VAGINAL 08/20/2012 CARMEN GIBBS MD N 054 .9 HERPES SIMPLEX WITHOUT COMPLICATION 08/20/2012 CARMEN GIBBS MD N 112 .1 CANDIDIASIS VAGINAL 08/20/2012 EMERY LOBATO APRNRICIA R 054.9 HERPES SIMPLEX WITHOUT COMPLICATION 08/20/2012 EMERY LOBATO APRNRICIA R 112.1 CANDIDIASIS VAGINAL 08/20/2012 MALACHI TOBIAS APRNINA R 054.9 HERPES SIMPLEX WITHOUT COMPLICATION 08/20/2012 MICHELINE BAUMANN, RAQUEL R 112.1 CANDIDIASIS VAGINAL 08/20/2012 CARMEN GIBBS MD N 054 .9 HERPES SIMPLEX WITHOUT COMPLICATION 08/20/2012 CARMEN GIBBS MD N 112 .1 CANDIDIASIS VAGINAL 08/20/2012 SHERI BAUMANN, ANSON L 054 .9 HERPES SIMPLEX WITHOUT COMPLICATION 08/20/2012 SHERI BAUMANN, ANSON L 112 .1 CANDIDIASIS VAGINAL 08/20/2012 SHERI BAUMANN ANSON L 054 .9 HERPES SIMPLEX WITHOUT COMPLICATION 08/20/2012 SHERI ASSURANCE ENGINEER, ANSON L 112 .1 CANDIDIASIS VAGINAL 08/20/2012 MICHELINE BAUMANN, RAQUEL R 054.9 HERPES SIMPLEX WITHOUT COMPLICATION 08/20/2012 MICHELINE BAUMANN RAQUEL R 112.1 CANDIDIASIS VAGINAL 08/20/2012 WHITE DDS, ELLIOT J 05 4.9 HERPES SIMPLEX WITHOUT COMPLICATION 08/20/2012 WHITE DDS, ELLIOT J 11 2.1 CANDIDIASIS VAGINAL 08/20/2012 CARMEN GIBBS MD N 054 .9 HERPES SIMPLEX WITHOUT COMPLICATION 08/20/2012 CARMEN GIBBS MD N 112 .1 CANDIDIASIS VAGINAL 08/20/2012 SHERI BAUMANN ANSON L 054 .9 HERPES SIMPLEX WITHOUT COMPLICATION 08/20/2012 JOSE FRANCISCOL ASSURANCE ENGINEER, ANSON L 112 .1 CANDIDIASIS VAGINAL 08/20/2012 CARMEN GIBBS MD N 054 .9 HERPES SIMPLEX WITHOUT COMPLICATION 08/20/2012 CARMEN GIBBS MD N 112 .1 CANDIDIASIS VAGINAL 08/20/2012 CARMEN GIBBS MD N 054 .9 HERPES SIMPLEX WITHOUT COMPLICATION 08/20/2012 CARMEN GIBBS MD N 112 .1 CANDIDIASIS VAGINAL 08/20/2012 MADL ASSURANCE ENGINEER, ANSON L 054 .9 HERPES SIMPLEX WITHOUT COMPLICATION 08/20/2012 MADL ASSURANCE ENGINEER, ANSON L 112 .1 CANDIDIASIS VAGINAL 08/20/2012 GONZALES GAMING EMIL K 054.9 HERPES SIMPLEX WITHOUT COMPLICATION 08/20/2012 ROLON DO EMIL K 112.1 CANDIDIASIS VAGINAL 09/25/2012 Ot 789.09 ABD OMINAL PAIN, OTHER SPECIFIED SITE 09/25/2012 Ot V45.89 POS TSURGICAL STATES NEC 09/25/2012 Ot V58.69 OT MED,LT,CURRENT USE 11/01/2012 YAN CHAPARRO DO Ot 571.8 CHRONIC LIVER DIS NEC 11/01/2012 YAN CHAPARRO DO Ot 599.0 URIN TRACT INFECTION NOS 11/01/2012 YAN CHAPARRO DO Ot 789.01 ABDOMINAL PAIN, RIGHT UPPER QUADRANT 11/29/2012 SONAM PARISH, ISSAC Nickerson Ot 338. 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 0 CARPAL TUNNEL SYNDROME 12/30/2012 JOHN GALDAMEZ MD Ot 782. 0 SKIN SENSATION DISTURB 01/25/2013 YAN CHAPARRO DO Ot 724.79 DISORDER OF COCCYX NEC 02/12/2013 RADHA MALLORY MD Ot 784 .0 HEADACHE 03/08/2013 YAN CHAPARRO DO Ot 784.0 HEADACHE 05/03/2013 JUSTICE PARISH, IZABELA Martinez Ot 599.0 URIN TRACT INFECTION NOS 05/03/2013 IZABELA RENDON MD Ot 789.09 ABDOMINAL PAIN, OTHER SPECIFIED SITE 05/11/2013 GEORGES FINN APRN Ot 682 .6 CELLULITIS OF LEG 05/11/2013 GEORGES FINN APRN Ot 782 .1 NONSPECIF SKIN ERUPT NEC 05/12/2013 ELLY DOUGLAS MD 686.9 UNSPECIFIED LOCAL INFECTION OF SKIN AND SUBCUTANEOUS TISSUE 05/12/2013 CARMEN GIBBS MD 686 .9 UNSPECIFIED LOCAL INFECTION OF SKIN AND SUBCUTANEOUS TISSUE 05/12/2013 CARMEN GIBBS MD 686 .9 UNSPECIFIED LOCAL INFECTION OF SKIN AND SUBCUTANEOUS TISSUE 05/12/2013 RAQUEL LOPEZ DDS 686.9 UNSPECIFIED LOCAL INFECTION OF SKIN AND SUBCUTANEOUS T ISSUE 05/12/2013 EMIL ROLON DO 686.9 UNSPECIFIED LOCAL INFECTION OF SKIN AND SUBCUTANEOUS TISSUE 05/12/2013 CARMEN GIBBS MD 686 .9 UNSPECIFIED LOCAL INFECTION OF SKIN AND SUBCUTANEOUS TISSUE 05/12/2013 CARMEN GIBBS MD 686 .9 UNSPECIFIED LOCAL INFECTION OF SKIN AND SUBCUTANEOUS TISSUE 05/12/2013 OSMAN ALVAREZ APRN 68 6.9 UNSPECIFIED LOCAL INFECTION OF SKIN AND SUBCUTANEOUS TISSUE 05/12/2013 SUDHIR ROLON DOA K 686.9 UNSPECIFIED LOCAL INFECTION OF SKIN AND SUBCUTANEOUS TISSUE 05/12/2013 SUDHIR ROLON DOA K 686.9 UNSPECIFIED LOCAL INFECTION OF SKIN AND SUBCUTANEOUS TISSUE 05/12/2013 GONZALES GAMING EMIL K 686.9 UNSPECIFIED LOCAL INFECTION OF SKIN AND SUBCUTANEOUS TISSUE 05/12/2013 OSMAN ALVAREZ APRN 68 6.9 UNSPECIFIED LOCAL INFECTION OF SKIN AND SUBCUTANEOUS TISSUE 05/12/2013 SUDHIR ROLON DOA K 686.9 UNSPECIFIED LOCAL INFECTION OF SKIN AND SUBCUTANEOUS TISSUE 05/12/2013 GONZALES GAMING EMIL K 686.9 UNSPECIFIED LOCAL INFECTION OF SKIN AND SUBCUTANEOUS TISSUE 05/12/2013 BRENNA LOBATO APRN R 686.9 UNSPECIFIED LOCAL INFECTION OF SKIN AND SUBCUTANEOUS T ISSUE 05/12/2013 ANSON WADE APRN 686 .9 UNSPECIFIED LOCAL INFECTION OF SKIN AND SUBCUTANEOUS TISSUE 05/12/2013 BRENNA LOBATO APRN R 686.9 UNSPECIFIED LOCAL INFECTION OF SKIN AND SUBCUTANEOUS T ISSUE 05/12/2013 CARMEN GIBBS MD 686 .9 UNSPECIFIED LOCAL INFECTION OF SKIN AND SUBCUTANEOUS TISSUE 05/12/2013 EMIL ROLON DO 686.9 UNSPECIFIED LOCAL INFECTION OF SKIN AND SUBCUTANEOUS TISSUE 05/12/2013 MALACHI TOBIAS APRNINA R 686.9 UNSPECIFIED LOCAL INFECTION OF SKIN AND SUBCUTANEOUS T ISSUE 05/12/2013 CARMEN GIBBS MD 686 .9 UNSPECIFIED LOCAL INFECTION OF SKIN AND SUBCUTANEOUS TISSUE 05/12/2013 BRENNA LOBATO APRN R 686.9 UNSPECIFIED LOCAL INFECTION OF SKIN AND SUBCUTANEOUS T ISSUE 05/12/2013 MALACHI TOBIAS APRNINA R 686.9 UNSPECIFIED LOCAL INFECTION OF SKIN AND SUBCUTANEOUS T ISSUE 05/12/2013 CARMEN GIBBS MD 686 .9 UNSPECIFIED LOCAL INFECTION OF SKIN AND SUBCUTANEOUS TISSUE 05/12/2013 ANSON WADE APRN L 686 .9 UNSPECIFIED LOCAL INFECTION OF SKIN AND SUBCUTANEOUS TISSUE 05/12/2013 ANSON WADE APRN L 686 .9 UNSPECIFIED LOCAL INFECTION OF SKIN AND SUBCUTANEOUS TISSUE 05/12/2013 MALACHI TOBIAS APRNINA R 686.9 UNSPECIFIED LOCAL INFECTION OF SKIN AND SUBCUTANEOUS T ISSUE 05/12/2013 ELLIOT MORENO DDS 68 6.9 UNSPECIFIED LOCAL INFECTION OF SKIN AND SUBCUTANEOUS TISSUE 05/12/2013 CARMEN GIBBS MD 686 .9 UNSPECIFIED LOCAL INFECTION OF SKIN AND SUBCUTANEOUS TISSUE 05/12/2013 ANSON WADE APRN L 686 .9 UNSPECIFIED LOCAL INFECTION OF SKIN AND SUBCUTANEOUS TISSUE 05/12/2013 CARMEN GIBBS MD 686 .9 UNSPECIFIED LOCAL INFECTION OF SKIN AND SUBCUTANEOUS TISSUE 05/12/2013 CARMEN GIBBS MD 686 .9 UNSPECIFIED LOCAL INFECTION OF SKIN AND SUBCUTANEOUS TISSUE 05/12/2013 ANSON WADE APRN L 686 .9 UNSPECIFIED LOCAL INFECTION OF SKIN AND SUBCUTANEOUS TISSUE 05/12/2013 EMIL ROLON DO 686.9 UNSPECIFIED LOCAL INFECTION OF SKIN AND SUBCUTANEOUS TISSUE 05/27/2013 CARMEN GBIBS MD 307 .81 TENSION HEADACHE 05/27/2013 CARMEN GIBBS MD 307 .81 TENSION HEADACHE 05/27/2013 JESSICA VILLAVICENCIO, RAQUEL Galdamez 307.81 TENSION HEADACHE 05/27/2013 EMIL ROLON DO 307.81 TENSION HEADACHE 05/27/2013 SAI MD, CARMEN N 307 .81 TENSION HEADACHE 05/27/2013 CARMEN GIBBS MD N 307 .81 TENSION HEADACHE 05/27/2013 OSMAN ALVAREZ APRN T 307.81 TENSION HEADACHE 05/27/2013 ROLON DO, EMIL K 307.81 TENSION HEADACHE 05/27/2013 ROLON DO, EMIL K 307.81 TENSION HEADACHE 05/27/2013 ROLON DO, EMIL K 307.81 TENSION HEADACHE 05/27/2013 OSMAN ALVAREZ APRN T 307.81 TENSION HEADACHE 05/27/2013 ROLON DO, EMIL K 307.81 TENSION HEADACHE 05/27/2013 ROLON DO, EMIL K 307.81 TENSION HEADACHE 05/27/2013 LUIS ALFREDO BAUMANN BRENNA R 307.81 TENSION HEADACHE 05/27/2013 CINTHIA WADE APRNWNYA L 307 .81 TENSION HEADACHE 05/27/2013 LUIS ALFREDO BAUMANN BRENNA R 307.81 TENSION HEADACHE 05/27/2013 CARMEN GIBBS MD N 307 .81 TENSION HEADACHE 05/27/2013 ROLON DO, EMIL K 307.81 TENSION HEADACHE 05/27/2013 MICHELINE BAUMANN RAQUEL R 307.81 TENSION HEADACHE 05/27/2013 CARMEN GIBBS MD 307 .81 TENSION HEADACHE 05/27/2013 CRISTINO LOBATO APRNIA R 307.81 TENSION HEADACHE 05/27/2013 MICHELINE BAUMANN RAQUEL R 307.81 TENSION HEADACHE 05/27/2013 CARMEN GIBBS MD N 307 .81 TENSION HEADACHE 05/27/2013 LETICIA WADE APRNA L 307 .81 TENSION HEADACHE 05/27/2013 LETICIA WADE APRNA L 307 .81 TENSION HEADACHE 05/27/2013 MICHELINE BAUMANN RAQUEL R 307.81 TENSION HEADACHE 05/27/2013 ELLIOT MORENO DDS 307.81 TENSION HEADACHE 05/27/2013 CARMEN GIBBS MD N 307 .81 TENSION HEADACHE 05/27/2013 ANSON WADE APRN L 307 .81 TENSION HEADACHE 05/27/2013 CARMEN GIBBS MD N 307 .81 TENSION HEADACHE 05/27/2013 CARMEN GIBBS MD N 307 .81 TENSION HEADACHE 05/27/2013 LETICIA WADE APRNA L 307 .81 TENSION HEADACHE 05/27/2013 ROLON , EMIL K 307.81 TENSION HEADACHE 05/28/2013 SHANKAR DO, YAN K Ot 682.6 CELLULITIS OF LEG 05/28/2013 SHANKAR GAMING, YAN K Ot 782.2 LOCAL SUPRFICIAL SWELLNG 05/29/2013 CARMEN GIBBS MD 682 .9 CELLULITIS AND ABSCESS OF UNSPECIFIED SITES 05/29/2013 JESSICA DDS, RAQUEL Galdamez 682.9 CELLULITIS AND ABSCESS OF UNSPECIFIED SITES 05/29/2013 GONZALES GAMING EMIL K 682.9 CELLULITIS AND ABSCESS OF UNSPECIFIED SITES 05/29/2013 CARMEN GIBBS MD 682 .9 CELLULITIS AND ABSCESS OF UNSPECIFIED SITES 05/29/2013 CARMEN GIBBS MD 682 .9 CELLULITIS AND ABSCESS OF UNSPECIFIED SITES 05/29/2013 OSMAN ALVAREZ APRN 68 2.9 CELLULITIS AND ABSCESS OF UNSPECIFIED SITES 05/29/2013 ROLON DO, EMIL K 682.9 CELLULITIS AND ABSCESS OF UNSPECIFIED SITES 05/29/2013 ROLON DO EMIL K 682.9 CELLULITIS AND ABSCESS OF UNSPECIFIED SITES 05/29/2013 ROLON DO, EMIL K 682.9 CELLULITIS AND ABSCESS OF UNSPECIFIED SITES 05/29/2013 OSMAN ALVAREZ APRN 68 2.9 CELLULITIS AND ABSCESS OF UNSPECIFIED SITES 05/29/2013 ROLON DO, EMIL K 682.9 CELLULITIS AND ABSCESS OF UNSPECIFIED SITES 05/29/2013 ROLON DO, EMIL K 682.9 CELLULITIS AND ABSCESS OF UNSPECIFIED SITES 05/29/2013 BRENNA LOBATO APRN R 682.9 CELLULITIS AND ABSCESS OF UNSPECIFIED SITES 05/29/2013 ANSON WADE APRN 682 .9 CELLULITIS AND ABSCESS OF UNSPECIFIED SITES 05/29/2013 BRENNA LOBATO APRN R 682.9 CELLULITIS AND ABSCESS OF UNSPECIFIED SITES 05/29/2013 CARMEN GIBBS MD 682 .9 CELLULITIS AND ABSCESS OF UNSPECIFIED SITES 05/29/2013 GONZALES GAMING EMIL K 682.9 CELLULITIS AND ABSCESS OF UNSPECIFIED SITES 05/29/2013 MALACHI TOBIAS APRNINA R 682.9 CELLULITIS AND ABSCESS OF UNSPECIFIED SITES 05/29/2013 CARMEN GIBBS MD 682 .9 CELLULITIS AND ABSCESS OF UNSPECIFIED SITES 05/29/2013 LUIS ALFREDO YUN, BRENNA R 682.9 CELLULITIS AND ABSCESS OF UNSPECIFIED SITES 05/29/2013 MICHELINE ASSURANCE ENGINEER, RAQUEL R 682.9 CELLULITIS AND ABSCESS OF UNSPECIFIED SITES 05/29/2013 CARMEN GIBBS MD N 682 .9 CELLULITIS AND ABSCESS OF UNSPECIFIED SITES 05/29/2013 MADL ASSURANCE ENGINEER, ANSON L 682 .9 CELLULITIS AND ABSCESS OF UNSPECIFIED SITES 05/29/2013 MADL ASSURANCE ENGINEER, ANSON L 682 .9 CELLULITIS AND ABSCESS OF UNSPECIFIED SITES 05/29/2013 MICHELINE ASSURANCE ENGINEER, RAQUEL R 682.9 CELLULITIS AND ABSCESS OF UNSPECIFIED SITES 05/29/2013 JOSH VILLAVICENCIO, ELLIOT [place] 68 2.9 CELLULITIS AND ABSCESS OF UNSPECIFIED SITES 05/29/2013 CARMEN GIBBS MD N 682 .9 CELLULITIS AND ABSCESS OF UNSPECIFIED SITES 05/29/2013 SHERI ASSURANCE ENGINEER, ANSON L 682 .9 CELLULITIS AND ABSCESS OF UNSPECIFIED SITES 05/29/2013 CARMEN GIBBS MD N 682 .9 CELLULITIS AND ABSCESS OF UNSPECIFIED SITES 05/29/2013 CARMEN GIBBS MD N 682 .9 CELLULITIS AND ABSCESS OF UNSPECIFIED SITES 05/29/2013 SHERI BAUMANN, ANSON L 682 .9 CELLULITIS AND ABSCESS OF UNSPECIFIED SITES 05/29/2013 EMIL ROLON DO 682.9 CELLULITIS AND ABSCESS OF UNSPECIFIED SITES 05/30/2013 JESSICA VILLAVICENCIO, RAQUEL Galdamez V58.49 WOUND DRAIN CHANGE/REMOVAL AFTER SURGERY 05/30/2013 EMIL ROLON DO V58.49 WOUND DRAIN CHANGE/REMOVAL AFTER SURGERY 05/30/2013 CARMEN GIBBS MD V58 .49 WOUND DRAIN CHANGE/REMOVAL AFTER SURGERY 05/30/2013 CARMEN GIBBS MD V58 .49 WOUND DRAIN CHANGE/REMOVAL AFTER SURGERY 05/30/2013 OSMAN ALVAREZ APRN V58.49 WOUND DRAIN CHANGE/REMOVAL AFTER SURGERY 05/30/2013 EMIL ROLON DO V58.49 WOUND DRAIN CHANGE/REMOVAL AFTER SURGERY 05/30/2013 EMIL ROLON DO V58.49 WOUND DRAIN CHANGE/REMOVAL AFTER SURGERY 05/30/2013 ROLON DO, EMIL K V58.49 WOUND DRAIN CHANGE/REMOVAL AFTER SURGERY 05/30/2013 KIM YUNOSMAN V58.49 WOUND DRAIN CHANGE/REMOVAL AFTER SURGERY 05/30/2013 GONZALES GAMING, EMIL K V58.49 WOUND DRAIN CHANGE/REMOVAL AFTER SURGERY 05/30/2013 GONZALES DO, EMIL K V58.49 WOUND DRAIN CHANGE/REMOVAL AFTER SURGERY 05/30/2013 LUIS ALFREDO YUN, BRENNA R V58.49 WOUND DRAIN CHANGE/REMOVAL AFTER SURGERY 05/30/2013 SHERI ASSURANCE ENGINEER, ANSON L V58 .49 WOUND DRAIN CHANGE/REMOVAL AFTER SURGERY 05/30/2013 LUIS ALFREDO YUN, BRENNA R V58.49 WOUND DRAIN CHANGE/REMOVAL AFTER SURGERY 05/30/2013 CARMEN GIBBS MD V58 .49 WOUND DRAIN CHANGE/REMOVAL AFTER SURGERY 05/30/2013 GONZALES GAMING, EMIL K V58.49 WOUND DRAIN CHANGE/REMOVAL AFTER SURGERY 05/30/2013 MICHELINE BAUMANN, RAQUEL R V58.49 WOUND DRAIN CHANGE/REMOVAL AFTER SURGERY 05/30/2013 CARMEN GIBBS MD V58 .49 WOUND DRAIN CHANGE/REMOVAL AFTER SURGERY 05/30/2013 LUIS ALFREDO YUN, BRENNA R V58.49 WOUND DRAIN CHANGE/REMOVAL AFTER SURGERY 05/30/2013 MICHELINE BAUMANN, RAQUEL R V58.49 WOUND DRAIN CHANGE/REMOVAL AFTER SURGERY 05/30/2013 CARMEN GIBBS MD V58 .49 WOUND DRAIN CHANGE/REMOVAL AFTER SURGERY 05/30/2013 SHERI YUN, ANSON L V58 .49 WOUND DRAIN CHANGE/REMOVAL AFTER SURGERY 05/30/2013 SHERI BAUMANN, ANSON L V58 .49 WOUND DRAIN CHANGE/REMOVAL AFTER SURGERY 05/30/2013 MICHELINE YUN, RAQUEL R V58.49 WOUND DRAIN CHANGE/REMOVAL AFTER SURGERY 05/30/2013 JOSH JETERS, ELLIOT J V58.49 WOUND DRAIN CHANGE/REMOVAL AFTER SURGERY 05/30/2013 CARMEN GIBBS MD V58 .49 WOUND DRAIN CHANGE/REMOVAL AFTER SURGERY 05/30/2013 SHERI BAUMANN, ANSON Leblanc V58 .49 WOUND DRAIN CHANGE/REMOVAL AFTER SURGERY 05/30/2013 CARMEN GIBBS MD V58 .49 WOUND DRAIN CHANGE/REMOVAL AFTER SURGERY 05/30/2013 CARMEN GIBBS MD V58 .49 WOUND DRAIN CHANGE/REMOVAL AFTER SURGERY 05/30/2013 SHERI ASSURANCE ENGINEER, ANSON L V58 .49 WOUND DRAIN CHANGE/REMOVAL AFTER SURGERY 05/30/2013 ROLON DO, EMIL K V58.49 WOUND DRAIN CHANGE/REMOVAL AFTER SURGERY 05/30/2013 KIARA MORRISON Ot 682.6 CELLULITIS OF LEG 06/04/2013 SHANKAR DO, YAN K Ot 682.6 CELLULITIS OF LEG 06/04/2013 SHANKAR DO, YAN K Ot V58.31 ENCOUNTER FOR CHANGE OR REMOVAL OF SURGI 06/05/2013 ROLON DO, EMIL K 891.0 OPEN WOUND OF KNEE LEG (EXCEPT THIGH) AND ANKLE WITHOUT COMPLICATION 06/05/2013 CARMEN GIBBS MD 891 .0 OPEN WOUND OF KNEE LEG (EXCEPT THIGH) AND ANKLE WITHOUT COMPLICATION 06/05/2013 CARMEN GIBBS MD N 891 .0 OPEN WOUND OF KNEE LEG (EXCEPT THIGH) AND ANKLE WITHOUT COMPLICATION 06/05/2013 OSMAN ALVAREZ APRN 89 1.0 OPEN WOUND OF KNEE LEG (EXCEPT THIGH) [...] ANKLE WITHOUT COMPLICATION 06/05/2013 OSMAN ALVAREZ APRN 89 1.0 OPEN WOUND OF KNEE LEG (EXCEPT THIGH) AND ANKLE WITHOUT COMPLICATION 06/05/2013 ROLON DO, EMIL K 891.0 OPEN WOUND OF KNEE LEG (EXCEPT THIGH) AND ANKLE WITHOUT COMPLICATION 06/05/2013 ROLON DO, EMIL K 891.0 OPEN WOUND OF KNEE LEG (EXCEPT THIGH) AND ANKLE WITHOUT COMPLICATION 06/05/2013 BRENNA LOBATO APRN R 891.0 OPEN WOUND OF KNEE LEG (EXCEPT THIGH) AN D ANKLE WITHOUT COMPLICATION 06/05/2013 SHERI YUN, ANSON L 891 .0 OPEN WOUND OF KNEE LEG (EXCEPT THIGH) AND ANKLE WITHOUT COMPLICATION 06/05/2013 CRISTINO LOBATO APRNIA R 891.0 OPEN WOUND OF KNEE LEG (EXCEPT THIGH) AN D ANKLE WITHOUT COMPLICATION 06/05/2013 CARMEN GIBBS MD N 891 .0 OPEN WOUND OF KNEE LEG (EXCEPT THIGH) AND ANKLE WITHOUT COMPLICATION 06/05/2013 EMIL ROLON DO K 891.0 OPEN WOUND OF KNEE LEG (EXCEPT THIGH) AND ANKLE WITHOUT COMPLICATION 06/05/2013 MICHELINE ASSURANCE ENGINEER, RAQUEL R 891.0 OPEN WOUND OF KNEE LEG (EXCEPT THIGH) AND ANKLE WITHOU T COMPLICATION 06/05/2013 CARMEN GIBBS MD N 891 .0 OPEN WOUND OF KNEE LEG (EXCEPT THIGH) AND ANKLE WITHOUT COMPLICATION 06/05/2013 LOBATO ASSURANCE ENGINEER, BRENNA R 891.0 OPEN WOUND OF KNEE LEG (EXCEPT THIGH) AN D ANKLE WITHOUT COMPLICATION 06/05/2013 MICHELINE ASSURANCE ENGINEER, RAQUEL R 891.0 OPEN WOUND OF KNEE LEG (EXCEPT THIGH) AND ANKLE WITHOU T COMPLICATION 06/05/2013 CARMEN GIBBS MD N 891 .0 OPEN WOUND OF KNEE LEG (EXCEPT THIGH) AND ANKLE WITHOUT COMPLICATION 06/05/2013 JOSE FRANCISCOL ASSURANCE ENGINEER, ANSON L 891 .0 OPEN WOUND OF KNEE LEG (EXCEPT THIGH) AND ANKLE WITHOUT COMPLICATION 06/05/2013 MADL ASSURANCE ENGINEER, ANSON L 891 .0 OPEN WOUND OF KNEE LEG (EXCEPT THIGH) AND ANKLE WITHOUT COMPLICATION 06/05/2013 MICHELINE ASSURANCE ENGINEER, RAQUEL R 891.0 OPEN WOUND OF KNEE LEG (EXCEPT THIGH) AND ANKLE WITHOU T COMPLICATION 06/05/2013 WHITE DDS, ELLIOT J 89 1.0 OPEN WOUND OF KNEE LEG (EXCEPT THIGH) AND ANKLE WITHOUT COMPLICATION 06/05/2013 CARMEN GIBBS MD N 891 .0 OPEN WOUND OF KNEE LEG (EXCEPT THIGH) AND ANKLE WITHOUT COMPLICATION 06/05/2013 SHERI ASSURANCE ENGINEER, ANSON L 891 .0 OPEN WOUND OF KNEE LEG (EXCEPT THIGH) AND ANKLE WITHOUT COMPLICATION 06/05/2013 CARMEN GIBBS MD N 891 .0 OPEN WOUND OF KNEE LEG (EXCEPT THIGH) AND ANKLE WITHOUT COMPLICATION 06/05/2013 CARMEN GIBBS MD N 891 .0 OPEN WOUND OF KNEE LEG (EXCEPT THIGH) AND ANKLE WITHOUT COMPLICATION 06/05/2013 MADL ASSURANCE ENGINEER, ANSON L 891 .0 OPEN WOUND OF KNEE LEG (EXCEPT THIGH) AND ANKLE WITHOUT COMPLICATION 06/05/2013 EIML ROLON DO K 891.0 OPEN WOUND OF KNEE LEG (EXCEPT THIGH) AND ANKLE WITHOUT COMPLICATION 06/25/2013 ISSAC MASTERS MD Ot 787. 01 NAUSEA WITH VOMITING 06/25/2013 ISSAC MASTERS MD Ot 789. 06 ABDOMINAL PAIN, EPIGASTRIC 07/31/2013 LUIS MORENO MD Ot 278. 01 MORBID OBESITY 07/31/2013 LUIS MORENO MD Ot 724. 2 LUMBAGO 07/31/2013 LUIS MORENO MD Ot 724. 79 DISORDER OF COCCYX NEC 07/31/2013 LUIS MORENO MD Ot V58. 69 OTH MED,LT,CURRENT USE 07/31/2013 LUIS MORENO MD Ot V85. 41 BODY MASS INDEX 40.0-44.9, ADULT 09/03/2013 CARMEN GIBBS MD 493 .92 ASTHMA (ACUTE) EXACERBATION 09/03/2013 OSMAN ALVAREZ APRN 493.92 ASTHMA (ACUTE) EXACERBATION 09/03/2013 EMIL ROLON DO K 493.92 ASTHMA (ACUTE) EXACERBATION 09/03/2013 EMIL ROLON DO K 493.92 ASTHMA WITH ACUTE EXACERBATION 09/03/2013 EMIL ROLON DO K 493.92 ASTHMA WITH ACUTE EXACERBATION 09/03/2013 OSMAN ALVAREZ APRN 493.92 ASTHMA WITH ACUTE EXACERBATION 09/03/2013 EMIL ROLON DO K 493.92 ASTHMA WITH ACUTE EXACERBATION 09/03/2013 SUDHIR ROLON DOA K 493.92 ASTHMA WITH ACUTE EXACERBATION 09/03/2013 BRENNA LOBATO APRN R 493.92 ASTHMA WITH ACUTE EXACERBATION 09/03/2013 ANSON WADE APRN 493 .92 ASTHMA WITH ACUTE EXACERBATION 09/03/2013 BRENNA LOBATO APRN R 493.92 ASTHMA WITH ACUTE EXACERBATION 09/03/2013 CARMEN GIBBS MD 493 .92 ASTHMA WITH ACUTE EXACERBATION 09/03/2013 EMIL ROLON DO 493.92 ASTHMA WITH ACUTE EXACERBATION 09/03/2013 RAQUEL TOBIAS APRN 493.92 ASTHMA WITH ACUTE EXACERBATION 09/03/2013 CARMEN GIBBS MD 493 .92 ASTHMA WITH ACUTE EXACERBATION 09/03/2013 BRENNA LOBATO APRN 493.92 ASTHMA WITH ACUTE EXACERBATION 09/03/2013 RAQUEL TOBIAS APRN 493.92 ASTHMA WITH ACUTE EXACERBATION 09/03/2013 CARMEN GIBBS MD 493 .92 ASTHMA WITH ACUTE EXACERBATION 09/03/2013 MADL ASSURANCE ENGINEER, ANSON L 493 .92 ASTHMA WITH ACUTE EXACERBATION 09/03/2013 MADL ASSURANCE ENGINEER, ANSON L 493 .92 ASTHMA WITH ACUTE EXACERBATION 09/03/2013 MICHELINE BAUMANN, RAQUEL R 493.92 ASTHMA WITH ACUTE EXACERBATION 09/03/2013 WHITE DDS, ELLIOT J 493.92 ASTHMA WITH ACUTE EXACERBATION 09/03/2013 CARMEN GIBBS MD 493 .92 ASTHMA WITH ACUTE EXACERBATION 09/03/2013 SHERI BAUMANN, ANSON L 493 .92 ASTHMA WITH ACUTE EXACERBATION 09/03/2013 CARMEN GIBBS MD 493 .92 ASTHMA WITH ACUTE EXACERBATION 09/03/2013 CARMEN GIBBS MD 493 .92 ASTHMA WITH ACUTE EXACERBATION 09/03/2013 JOSE FRANCISCOL ASSURANCE ENGINEER, ANSON L 493 .92 ASTHMA WITH ACUTE EXACERBATION 09/03/2013 ROLON DO, EMIL K 493.92 ASTHMA WITH ACUTE EXACERBATION 09/08/2013 TATA TOMAS MD Ot 724. 79 DISORDER OF COCCYX NEC 09/12/2013 OSMAN ALVAREZ APRN 46 5.9 UPPER RESPIRATORY INFECTION 09/12/2013 ROLON DO, EMIL K 465.9 UPPER RESPIRATORY INFECTION 09/12/2013 ROLON DO, EMIL K 465.9 UPPER RESPIRATORY INFECTION 09/12/2013 ROLON DO, EMIL K 465.9 UPPER RESPIRATORY INFECTION 09/12/2013 OSMAN ALVAREZ APRN 46 5.9 UPPER RESPIRATORY INFECTION 09/12/2013 ROLON DO, EMIL K 465.9 UPPER RESPIRATORY INFECTION 09/12/2013 ROLON DO, EMIL K 465.9 UPPER RESPIRATORY INFECTION 09/12/2013 LUIS ALFREDO BAUMANN BRENNA R 465.9 UPPER RESPIRATORY INFECTION 09/12/2013 SHERI ASSURANCE ENGINEER, ANSON L 465 .9 UPPER RESPIRATORY INFECTION 09/12/2013 EMERY LOBATO APRNRICIA R 465.9 UPPER RESPIRATORY INFECTION 09/12/2013 CARMEN GIBBS MD 465 .9 UPPER RESPIRATORY INFECTION 09/12/2013 ROLON , EMIL K 465.9 UPPER RESPIRATORY INFECTION 09/12/2013 MICHELINE BAUMANN RAQUEL R 465.9 UPPER RESPIRATORY INFECTION 09/12/2013 CARMEN GIBBS MD 465 .9 UPPER RESPIRATORY INFECTION 09/12/2013 CRISTINO LOBATO APRNIA R 465.9 UPPER RESPIRATORY INFECTION 09/12/2013 MALACHI TOBIAS APRNINA R 465.9 UPPER RESPIRATORY INFECTION 09/12/2013 CARMEN GIBBS MD N 465 .9 UPPER RESPIRATORY INFECTION 09/12/2013 MADL ASSURANCE ENGINEER, ANSON L 465 .9 UPPER RESPIRATORY INFECTION 09/12/2013 MADL ASSURANCE ENGINEER, ANSON L 465 .9 UPPER RESPIRATORY INFECTION 09/12/2013 MALACHI TOBIAS APRNINA R 465.9 UPPER RESPIRATORY INFECTION 09/12/2013 WHITE DDS, ELLIOT J 46 5.9 UPPER RESPIRATORY INFECTION 09/12/2013 CARMEN GIBBS MD 465 .9 UPPER RESPIRATORY INFECTION 09/12/2013 ANSON WADE APRN L 465 .9 UPPER RESPIRATORY INFECTION 09/12/2013 CARMEN GIBBS MD N 465 .9 UPPER RESPIRATORY INFECTION 09/12/2013 CARMEN GIBBS MD 465 .9 UPPER RESPIRATORY INFECTION 09/12/2013 SHERI BAUMANN, ANSON L 465 .9 UPPER RESPIRATORY INFECTION 09/12/2013 EMIL ROLON DO K 465.9 UPPER RESPIRATORY INFECTION 09/16/2013 EMIL ROLON DO K 381.02 ACUTE MUCOID OTITIS MEDIA 09/16/2013 EMIL ROLON DO K 381.02 OTITIS [...] OTITIS MEDIA ACUTE MUCOID LEFT EAR 09/16/2013 ANSON WADE APRN L 381 .02 OTITIS MEDIA ACUTE MUCOID LEFT EAR 09/16/2013 BRENNA LOBATO APRN R 381.02 OTITIS MEDIA ACUTE MUCOID LEFT EAR 09/16/2013 CARMEN GIBBS MD 381 .02 OTITIS MEDIA ACUTE MUCOID LEFT EAR 09/16/2013 EMIL ROLON DO K 381.02 OTITIS MEDIA ACUTE MUCOID LEFT EAR 09/16/2013 RAQUEL TOBIAS APRN R 381.02 OTITIS MEDIA ACUTE MUCOID LEFT EAR 09/16/2013 CARMEN GIBBS MD N 381 .02 OTITIS MEDIA ACUTE MUCOID LEFT EAR 09/16/2013 BRENNA LOBATO APRN R 381.02 OTITIS MEDIA ACUTE MUCOID LEFT EAR 09/16/2013 MICHELINE BAUMANN, RAQUEL R 381.02 OTITIS MEDIA ACUTE MUCOID LEFT EAR 09/16/2013 CARMEN GIBBS MD N 381 .02 OTITIS MEDIA ACUTE MUCOID LEFT EAR 09/16/2013 MADL ASSURANCE ENGINEER, ANSON L 381 .02 OTITIS MEDIA ACUTE MUCOID LEFT EAR 09/16/2013 MADL ASSURANCE ENGINEER, ANSON L 381 .02 OTITIS MEDIA ACUTE MUCOID LEFT EAR 09/16/2013 MICHELINE BAUMANN, RAQUEL R 381.02 OTITIS MEDIA ACUTE MUCOID LEFT EAR 09/16/2013 JOSH JETERS, ELLIOT J 381.02 OTITIS MEDIA ACUTE MUCOID LEFT EAR 09/16/2013 CARMEN GIBBS MD N 381 .02 OTITIS MEDIA ACUTE MUCOID LEFT EAR 09/16/2013 LETICIA WADE APRNA L 381 .02 OTITIS MEDIA ACUTE MUCOID LEFT EAR 09/16/2013 CARMEN GIBBS MD N 381 .02 OTITIS MEDIA ACUTE MUCOID LEFT EAR 09/16/2013 CARMEN GIBBS MD 381 .02 OTITIS MEDIA ACUTE MUCOID LEFT EAR 09/16/2013 CINTHIA WADE APRNWNYA L 381 .02 OTITIS MEDIA ACUTE MUCOID LEFT EAR 09/16/2013 EMIL ROLON DO 381.02 OTITIS MEDIA ACUTE MUCOID LEFT EAR 09/21/2013 EMIL ROLON DO 625.8 OTHER SPECIFIED SYMPTOMS ASSOCIATED WITH FEMALE GENITAL ORGANS 09/21/2013 OSMAN ALVAREZ APRN 62 5.8 OTHER SPECIFIED SYMPTOMS ASSOCIATED WITH FEMALE GENITAL ORGANS 09/21/2013 EMIL ROLON DO 625.8 OTHER SPECIFIED SYMPTOMS ASSOCIATED WITH FEMALE GENITAL ORGANS 09/21/2013 EMIL ROLON DO 625.8 OTHER SPECIFIED SYMPTOMS ASSOCIATED WITH FEMALE GENITAL ORGANS 09/21/2013 BRENNA LOBATO APRN 625.8 OTHER SPECIFIED SYMPTOMS ASSOCIATED WITH FEMALE GENITA L ORGANS 09/21/2013 ANSON WADE APRN 625 .8 OTHER SPECIFIED SYMPTOMS ASSOCIATED WITH FEMALE GENITAL ORGANS 09/21/2013 BRENNA LOBATO APRN 625.8 OTHER SPECIFIED SYMPTOMS ASSOCIATED WITH FEMALE GENITA L ORGANS 09/21/2013 CARMEN GIBBS MD 625 .8 OTHER SPECIFIED SYMPTOMS ASSOCIATED WITH FEMALE GENITAL ORGANS 09/21/2013 EMIL ROLON DO K 625.8 OTHER SPECIFIED SYMPTOMS ASSOCIATED WITH FEMALE GENITAL ORGANS 09/21/2013 MICHELINE BAUMANN RAQUEL R 625.8 OTHER SPECIFIED SYMPTOMS ASSOCIATED WITH FEMALE GENITA L ORGANS 09/21/2013 CARMEN GIBBS MD 625 .8 OTHER SPECIFIED SYMPTOMS ASSOCIATED WITH FEMALE GENITAL ORGANS 09/21/2013 BRENNA LOBATO APRN R 625.8 OTHER SPECIFIED SYMPTOMS ASSOCIATED WITH FEMALE GENITA L ORGANS 09/21/2013 MICHELINE BAUMANN RAQUEL R 625.8 OTHER SPECIFIED SYMPTOMS ASSOCIATED WITH FEMALE GENITA L ORGANS 09/21/2013 CARMEN GIBBS MD 625 .8 OTHER SPECIFIED SYMPTOMS ASSOCIATED WITH FEMALE GENITAL ORGANS 09/21/2013 MADBenji BAUMANN ANSON L 625 .8 OTHER SPECIFIED SYMPTOMS ASSOCIATED WITH FEMALE GENITAL ORGANS 09/21/2013 MADL PASTOR ANSON L 625 .8 OTHER SPECIFIED SYMPTOMS ASSOCIATED WITH FEMALE GENITAL ORGANS 09/21/2013 MALACHI TOBIAS APRNINA R 625.8 OTHER SPECIFIED SYMPTOMS ASSOCIATED WITH FEMALE GENITA L ORGANS 09/21/2013 JOSH JETERS, ELLIOT J 62 5.8 OTHER SPECIFIED SYMPTOMS ASSOCIATED WITH FEMALE GENITAL ORGANS 09/21/2013 CARMEN GIBBS MD 625 .8 OTHER SPECIFIED SYMPTOMS ASSOCIATED WITH FEMALE GENITAL ORGANS 09/21/2013 SHERI BAUMANN ANSON L 625 .8 OTHER SPECIFIED SYMPTOMS ASSOCIATED WITH FEMALE GENITAL ORGANS 09/21/2013 CARMEN GIBBS MD 625 .8 OTHER SPECIFIED SYMPTOMS ASSOCIATED WITH FEMALE GENITAL ORGANS 09/21/2013 CARMEN GIBBS MD 625 .8 OTHER SPECIFIED SYMPTOMS ASSOCIATED WITH FEMALE GENITAL ORGANS 09/21/2013 MADBenji BAUMANN, ANSON L 625 .8 OTHER SPECIFIED SYMPTOMS ASSOCIATED WITH FEMALE GENITAL ORGANS 09/21/2013 EMIL ROLON DO K 625.8 OTHER SPECIFIED SYMPTOMS ASSOCIATED WITH FEMALE GENITAL ORGANS 09/23/2013 EMIL ROLON DO 719.42 PAIN IN JOINT INVOLVING UPPER ARM 09/23/2013 OSMAN ALVAREZ APRN 719.42 PAIN IN JOINT INVOLVING UPPER ARM 09/23/2013 EMIL ROLON DO 719.42 PAIN IN JOINT INVOLVING UPPER ARM 09/23/2013 EMIL ROLON DO 719.42 PAIN IN JOINT INVOLVING UPPER ARM 09/23/2013 BRENNA LOBATO APRN R 719.42 PAIN IN JOINT INVOLVING UPPER ARM 09/23/2013 ANSON AWDE APRN L 719 .42 PAIN IN JOINT INVOLVING UPPER ARM 09/23/2013 BRENNA LOBATO APRN R 719.42 PAIN IN JOINT INVOLVING UPPER ARM 09/23/2013 CARMEN GIBBS MD 719 .42 PAIN IN JOINT INVOLVING UPPER ARM 09/23/2013 EMIL ROLON DO 719.42 PAIN IN JOINT INVOLVING UPPER ARM 09/23/2013 RAQUEL TOBIAS APRN R 719.42 PAIN IN JOINT INVOLVING UPPER ARM 09/23/2013 CARMEN GIBBS MD 719 .42 PAIN IN JOINT INVOLVING UPPER ARM 09/23/2013 BRENNA LOBATO APRN R 719.42 PAIN IN JOINT INVOLVING UPPER ARM 09/23/2013 RAQUEL TOBIAS APRN R 719.42 PAIN IN JOINT INVOLVING UPPER ARM 09/23/2013 CARMEN GIBBS MD 719 .42 PAIN IN JOINT INVOLVING UPPER ARM 09/23/2013 ANSON WADE APRN L 719 .42 PAIN IN JOINT INVOLVING UPPER ARM 09/23/2013 ANSON WADE APRN L 719 .42 PAIN IN JOINT INVOLVING UPPER ARM 09/23/2013 RAQUEL TOBIAS APRN R 719.42 PAIN IN JOINT INVOLVING UPPER ARM 09/23/2013 ELLIOT MORENO DDS 719.42 PAIN IN JOINT INVOLVING UPPER ARM 09/23/2013 CARMEN GIBBS MD 719 .42 PAIN IN JOINT INVOLVING UPPER ARM 09/23/2013 ANSON WADE APRN 719 .42 PAIN IN JOINT INVOLVING UPPER ARM 09/23/2013 CARMEN GIBBS MD 719 .42 PAIN IN JOINT INVOLVING UPPER ARM 09/23/2013 CARMEN GIBBS MD 719 .42 PAIN IN JOINT INVOLVING UPPER ARM 09/23/2013 ANSON WADE APRN 719 .42 PAIN IN JOINT INVOLVING UPPER ARM 09/23/2013 EMIL ROLON DO 719.42 PAIN IN JOINT INVOLVING UPPER ARM 09/28/2013 OSMAN ALVAREZ APRN 727.49 OTHER GANGLION AND CYST OF SYNOVIUM TENDON AND BURSA 09/28/2013 ROLON DO, EMIL K 727.49 OTHER GANGLION AND CYST OF SYNOVIUM TENDON AND BURSA 09/28/2013 ROLON DOSUDHIRA K 727.49 OTHER GANGLION AND CYST OF SYNOVIUM TENDON AND BURSA 09/28/2013 LUIS ALFREDO BAUMANN, BRENNA R 727.49 OTHER GANGLION AND CYST OF SYNOVIUM TENDON AND BURSA 09/28/2013 SHERI ASSURANCE ENGINEER, ANSON L 727 .49 OTHER GANGLION AND CYST OF SYNOVIUM TENDON AND BURSA 09/28/2013 LUIS ALFREDO BAUMANN BRENNA R 727.49 OTHER GANGLION AND CYST OF SYNOVIUM TENDON AND BURSA 09/28/2013 CARMEN GIBBS MD N 727 .49 OTHER GANGLION AND CYST OF SYNOVIUM TENDON AND BURSA 09/28/2013 EMIL ROLON DO K 727.49 OTHER GANGLION AND CYST OF SYNOVIUM TENDON AND BURSA 09/28/2013 MICHELINE BAUMANN, RAQUEL R 727.49 OTHER GANGLION AND CYST OF SYNOVIUM TENDON AND BURSA 09/28/2013 CARMEN GIBBS MD N 727 .49 OTHER GANGLION AND CYST OF SYNOVIUM TENDON AND BURSA 09/28/2013 EMERY LOBATO APRNRICIA R 727.49 OTHER GANGLION AND CYST OF SYNOVIUM TENDON AND BURSA 09/28/2013 MICHELINE BAUMANN, RAQUEL R 727.49 OTHER GANGLION AND CYST OF SYNOVIUM TENDON AND BURSA 09/28/2013 CARMEN GIBBS MD N 727 .49 OTHER GANGLION AND CYST OF SYNOVIUM TENDON AND BURSA 09/28/2013 SHERI BAUMANN, ANSON L 727 .49 OTHER GANGLION AND CYST OF SYNOVIUM TENDON AND BURSA 09/28/2013 CINTHIA WADE APRNWNYA L 727 .49 OTHER GANGLION AND CYST OF SYNOVIUM TENDON AND BURSA 09/28/2013 MICHELINE BAUMANN, RAQUEL R 727.49 OTHER GANGLION AND CYST OF SYNOVIUM TENDON AND BURSA 09/28/2013 JOSH VILLAVICENCIO, ELLIOT Alston 727.49 OTHER GANGLION AND CYST OF SYNOVIUM TENDON AND BURSA 09/28/2013 CARMEN GIBBS MD N 727 .49 OTHER GANGLION AND CYST OF SYNOVIUM TENDON AND BURSA 09/28/2013 SHERI BAUMANN, ANSON L 727 .49 OTHER GANGLION AND CYST OF SYNOVIUM TENDON AND BURSA 09/28/2013 SAICARMEN KOENIG MD 727 .49 OTHER GANGLION AND CYST OF SYNOVIUM TENDON AND BURSA 09/28/2013 CRAMEN GIBBS MD 727 .49 OTHER GANGLION AND CYST OF SYNOVIUM TENDON AND BURSA 09/28/2013 ANSON WADE APRN 727 .49 OTHER GANGLION AND CYST OF SYNOVIUM TENDON AND BURSA 09/28/2013 EMIL ROLON DO K 727.49 OTHER GANGLION AND CYST OF SYNOVIUM TENDON AND BURSA 10/06/2013 KIARA MORRISON Ot 535.50 UNSP GASTRITIS GASTRODUODENITIS W/O ME 10/06/2013 KIARA MORRISON Ot 789.06 ABDOMINAL PAIN, EPIGASTRIC 10/24/2013 BRENNA LOBATO APRN R 110.1 DERMATOPHYTOSIS OF NAIL 10/24/2013 ANSON WADE APRN L 110 .1 DERMATOPHYTOSIS OF NAIL 10/24/2013 BRENNA LOBATO APRN R 110.1 DERMATOPHYTOSIS OF NAIL 10/24/2013 CARMEN GIBBS MD 110 .1 DERMATOPHYTOSIS OF NAIL 10/24/2013 EMIL ROLON DO K 110.1 DERMATOPHYTOSIS OF NAIL 10/24/2013 RAQUEL TOBIAS APRN R 110.1 DERMATOPHYTOSIS OF NAIL 10/24/2013 CARMEN GIBBS MD 110 .1 DERMATOPHYTOSIS OF NAIL 10/24/2013 BRENNA LOBATO APRN R 110.1 DERMATOPHYTOSIS OF NAIL 10/24/2013 RAQUEL TOBIAS APRN R 110.1 DERMATOPHYTOSIS OF NAIL 10/24/2013 CARMEN GIBBS MD 110 .1 DERMATOPHYTOSIS OF NAIL 10/24/2013 ANSON WADE APRN L 110 .1 DERMATOPHYTOSIS OF NAIL 10/24/2013 ANSON WADE APRN L 110 .1 DERMATOPHYTOSIS OF NAIL 10/24/2013 RAQUEL TOBIAS APRN R 110.1 DERMATOPHYTOSIS OF NAIL 10/24/2013 JOSH VILLAVICENCIO, ELLIOT J 11 0.1 DERMATOPHYTOSIS OF NAIL 10/24/2013 CARMEN GIBBS MD 110 .1 DERMATOPHYTOSIS OF NAIL 10/24/2013 MADL ASSURANCE ENGINEER, ANSON L 110 .1 DERMATOPHYTOSIS OF NAIL 10/24/2013 CARMEN GIBBS MD N 110 .1 DERMATOPHYTOSIS OF NAIL 10/24/2013 CARMEN GIBBS MD N 110 .1 DERMATOPHYTOSIS OF NAIL 10/24/2013 ANSON WADE APRN L 110 .1 DERMATOPHYTOSIS OF NAIL 10/24/2013 SUDHIR RLOON DOA K 110.1 DERMATOPHYTOSIS OF NAIL 10/28/2013 BRENNA LOBATO APRN R 787.02 NAUSEA ALONE 10/28/2013 ANSON WADE APRN L 787 .02 NAUSEA ALONE 10/28/2013 BRENNA LOBATO APRN R 787.02 NAUSEA ALONE 10/28/2013 CARMEN GIBBS MD N 787 .02 NAUSEA ALONE 10/28/2013 EMIL ROLON DO K 787.02 NAUSEA ALONE 10/28/2013 RAQUEL TOBIAS APRN R 787.02 NAUSEA ALONE 10/28/2013 CARMEN GIBBS MD N 787 .02 NAUSEA ALONE 10/28/2013 BRENNA LOBATO APRN R 787.02 NAUSEA ALONE 10/28/2013 MALACHI TOBIAS APRNINA R 787.02 NAUSEA ALONE 10/28/2013 CARMEN GIBBS MD N 787 .02 NAUSEA ALONE 10/28/2013 ANSON WADE APRN L 787 .02 NAUSEA ALONE 10/28/2013 ANSON WADE APRN L 787 .02 NAUSEA ALONE 10/28/2013 ARQUEL TOBIAS APRN R 787.02 NAUSEA ALONE 10/28/2013 ELLIOT MORENO DDS 787.02 NAUSEA ALONE 10/28/2013 CARMEN GIBBS MD N 787 .02 NAUSEA ALONE 10/28/2013 ANSON WADE APRN L 787 .02 NAUSEA ALONE 10/28/2013 CARMEN GIBBS MD N 787 .02 NAUSEA ALONE 10/28/2013 CARMEN GIBBS MD N 787 .02 NAUSEA ALONE 10/28/2013 ANSON WADE APRN L 787 .02 NAUSEA ALONE 10/28/2013 GONZALES GAMING EMIL K 787.02 NAUSEA ALONE 10/29/2013 YAN CHAPARRO DO Ot 787.01 NAUSEA WITH VOMITING 10/29/2013 YAN CHAPARRO DO Vickey Ot 790.5 ABN SERUM ENZY LEVEL NEC 10/29/2013 YAN CHAPARRO DO Ot V58.69 OT MED,LT,CURRENT USE 11/03/2013 LETICIA WADE APRNA L 790 .6 OTHER ABNORMAL BLOOD CHEMISTRY 11/03/2013 CRISTINO LOBATO APRNIA R 790.6 OTHER ABNORMAL BLOOD CHEMISTRY 11/03/2013 CARMEN GIBBS MD N 790 .6 OTHER ABNORMAL BLOOD CHEMISTRY 11/03/2013 EMIL ROLON DO K 790.6 OTHER ABNORMAL BLOOD CHEMISTRY 11/03/2013 MICHELINE BAUMANN RAQUEL R 790.6 OTHER ABNORMAL BLOOD CHEMISTRY 11/03/2013 CARMEN GIBBS MD 790 .6 OTHER ABNORMAL BLOOD CHEMISTRY 11/03/2013 CRISTINO LOBATO APRNIA R 790.6 OTHER ABNORMAL BLOOD CHEMISTRY 11/03/2013 MALACHI TOBIAS APRNINA R 790.6 OTHER ABNORMAL BLOOD CHEMISTRY 11/03/2013 CARMEN GIBBS MD N 790 .6 OTHER ABNORMAL BLOOD CHEMISTRY 11/03/2013 LETICIA WADE APRNA L 790 .6 OTHER ABNORMAL BLOOD CHEMISTRY 11/03/2013 LETICIA WADE APRNA L 790 .6 OTHER ABNORMAL BLOOD CHEMISTRY 11/03/2013 MALACHI TOBIAS APRNINA R 790.6 OTHER ABNORMAL BLOOD CHEMISTRY 11/03/2013 ELLIOT MORENO DDS 79 0.6 OTHER ABNORMAL BLOOD CHEMISTRY 11/03/2013 CARMEN GIBBS MD N 790 .6 OTHER ABNORMAL BLOOD CHEMISTRY 11/03/2013 ANSON WADE APRN L 790 .6 OTHER ABNORMAL BLOOD CHEMISTRY 11/03/2013 CARMEN GIBBS MD N 790 .6 OTHER ABNORMAL BLOOD CHEMISTRY 11/03/2013 CARMEN GIBBS MD N 790 .6 OTHER ABNORMAL BLOOD CHEMISTRY 11/03/2013 LETICIA WADE APRNA L 790 .6 OTHER ABNORMAL BLOOD CHEMISTRY 11/03/2013 EMIL ROLON DO K 790.6 OTHER ABNORMAL BLOOD CHEMISTRY 11/20/2013 GEORGES FINN APRN Ot 724.79 DISORDER OF COCCYX NEC 01/19/2014 SHANKAR GAMINGYAN Ot 300.00 ANXIETY STATE NOS 01/19/2014 SHANKAR YAN Ot 311 DEPRESSIVE DISORDER NEC 01/19/2014 YAN CHAPARRO DO Ot 346.90 MIGRAINE UNSPECIFIED W/O INTRACT MGRN W/ 01/19/2014 YAN CHAPARRO DO Ot 493.90 ASTHMA, UNSPECIFIED 01/19/2014 YAN CHAPARRO DO Ot 599.0 URIN TRACT INFECTION NOS 01/19/2014 YAN CHAPARRO DO Ot 724.2 LUMBAGO 01/21/2014 ROLON DO, EMIL K 787.01 NAUSEA WITH VOMITING 01/21/2014 MALACHI TOBIAS APRNINA R 787.01 NAUSEA WITH VOMITING 01/21/2014 CARMEN GIBBS MD 787 .01 NAUSEA WITH VOMITING 01/21/2014 BRENNA LOBATO APRN R 787.01 NAUSEA WITH VOMITING 01/21/2014 RAQUEL TOBIAS APRN R 787.01 NAUSEA WITH VOMITING 01/21/2014 CARMEN GIBBS MD 787 .01 NAUSEA WITH VOMITING 01/21/2014 ANSON WADE APRN L 787 .01 NAUSEA WITH VOMITING 01/21/2014 ANSON WADE APRN L 787 .01 NAUSEA WITH VOMITING 01/21/2014 RAQUEL TOBIAS APRN R 787.01 NAUSEA WITH VOMITING 01/21/2014 JOSH VILLAVICENCIO, ELLIOT J 787.01 NAUSEA WITH VOMITING 01/21/2014 CARMEN GIBBS MD 787 .01 NAUSEA WITH VOMITING 01/21/2014 ANSON WADE APRN L 787 .01 NAUSEA WITH VOMITING 01/21/2014 CARMEN GIBBS MD 787 .01 NAUSEA WITH VOMITING 01/21/2014 CARMEN GIBBS MD 787 .01 NAUSEA WITH VOMITING 01/21/2014 ANSON WADE APRN L 787 .01 NAUSEA WITH VOMITING 01/21/2014 ROLON DO, EMIL K 787.01 NAUSEA WITH VOMITING 02/05/2014 CARMEN GIBBS MD 706 .1 OTHER ACNE 02/05/2014 BRENNA LOBATO APRN R 706.1 OTHER ACNE 02/05/2014 MALACHI TOBIAS APRNINA R 706.1 OTHER ACNE 02/05/2014 CARMEN GIBBS MD 706 .1 OTHER ACNE 02/05/2014 MADL ASSURANCE ENGINEER, ANSON L 706 .1 OTHER ACNE 02/05/2014 SHERI BAUMANN ANSON L 706 .1 OTHER ACNE 02/05/2014 RAQUEL TOBIAS APRN R 706.1 OTHER ACNE 02/05/2014 JOSH VILLAVICENCIO, ELLIOT Alston 70 6.1 OTHER ACNE 02/05/2014 CARMEN GIBBS MD N 706 .1 OTHER ACNE 02/05/2014 CINTHIA WADE APRNWNYA L 706 .1 OTHER ACNE 02/05/2014 CARMEN GIBBS MD N 706 .1 OTHER ACNE 02/05/2014 CARMEN GIBBS MD N 706 .1 OTHER ACNE 02/05/2014 MADL PASTOR ANSON L 706 .1 OTHER ACNE 02/05/2014 EMIL ROLON DO K 706.1 OTHER ACNE 03/21/2014 SHANKARYAN Goodwin DO Ot 599.0 URIN TRACT INFECTION NOS 03/21/2014 SHANKARYAN Goodwin DO Ot 789.09 ABDOMINAL PAIN, OTHER SPECIFIED SITE 03/30/2014 RAQUEL TOBIAS APRN R 719.41 PAIN IN JOINT INVOLVING SHOULDER REGION 03/30/2014 CARMEN GIBBS MD N 719 .41 PAIN IN JOINT INVOLVING SHOULDER REGION 03/30/2014 LETICIA WADE APRNA L 719 .41 PAIN IN JOINT INVOLVING SHOULDER REGION 03/30/2014 LETICIA WADE APRNA L 719 .41 PAIN IN JOINT INVOLVING SHOULDER REGION 03/30/2014 RAQUEL TOBIAS APRN R 719.41 PAIN IN JOINT INVOLVING SHOULDER REGION 03/30/2014 ELLIOT MORENO DDS 719.41 PAIN IN JOINT INVOLVING SHOULDER REGION 03/30/2014 CARMEN GIBBS MD N 719 .41 PAIN IN JOINT INVOLVING SHOULDER REGION 03/30/2014 LETICIA WADE APRNA L 719 .41 PAIN IN JOINT INVOLVING SHOULDER REGION 03/30/2014 CARMEN GIBBS MD N 719 .41 PAIN IN JOINT INVOLVING SHOULDER REGION 03/30/2014 CARMEN GIBBS MD N 719 .41 PAIN IN JOINT INVOLVING SHOULDER REGION 03/30/2014 LETICIA WADE APRNA L 719 .41 PAIN IN JOINT INVOLVING SHOULDER REGION 03/30/2014 ROLON DO, EMIL K 719.41 PAIN IN JOINT INVOLVING SHOULDER REGION 04/27/2014 SAI PARISH, CARMEN N 704 .00 ALOPECIA UNSPECIFIED 04/27/2014 MADL ASSURANCE ENGINEER, ANSON L 704 .00 ALOPECIA UNSPECIFIED 04/27/2014 MADL ASSURANCE ENGINEER, ANSON L 704 .00 ALOPECIA UNSPECIFIED 04/27/2014 MICHELINE BAUMANN, RAQUEL R 704.00 ALOPECIA UNSPECIFIED 04/27/2014 ELLIOT MORENO DDS 704.00 ALOPECIA UNSPECIFIED 04/27/2014 SAI PARISH, CARMEN N 704 .00 ALOPECIA UNSPECIFIED 04/27/2014 MADL ASSURANCE ENGINEER, ANSON L 704 .00 ALOPECIA UNSPECIFIED 04/27/2014 SAI PARISH, CARMEN N 704 .00 ALOPECIA UNSPECIFIED 04/27/2014 SAI PARISH, CARMEN N 704 .00 ALOPECIA UNSPECIFIED 04/27/2014 MADL ASSURANCE ENGINEER, ANSON L 704 .00 ALOPECIA UNSPECIFIED 04/27/2014 ROLON DO, EMIL K 704.00 ALOPECIA UNSPECIFIED 05/10/2014 MADL ASSURANCE ENGINEER, ANSON L 786 .52 PAINFUL RESPIRATION 05/10/2014 MADL ASSURANCE ENGINEER, ANSON L 786 .52 PAINFUL RESPIRATION 05/10/2014 MICHELINE BAUMANN, RAQUEL R 786.52 PAINFUL RESPIRATION 05/10/2014 ELLIOT MORENO DDS 786.52 PAINFUL RESPIRATION 05/10/2014 CARMEN GIBBS MD N 786 .52 PAINFUL RESPIRATION 05/10/2014 MADL ASSURANCE ENGINEER, ANSON L 786 .52 PAINFUL RESPIRATION 05/10/2014 CARMEN GIBBS MD N 786 .52 PAINFUL RESPIRATION 05/10/2014 CARMEN GIBBS MD N 786 .52 PAINFUL RESPIRATION 05/10/2014 MADL ASSURANCE ENGINEER, ANSON L 786 .52 PAINFUL RESPIRATION 05/10/2014 ROLON DO, EMIL K 786.52 PAINFUL RESPIRATION 05/25/2014 MICHELINE BAUMANN, RAQUEL R 461.9 SINUSITIS ACUTE 05/25/2014 MICHELINE BAUMANN, RAQUEL R 709.9 UNSPECIFIED DISORDER OF SKIN AND SUBCUTANEOUS TISSUE 05/25/2014 MICHELINE BAUMANN, RAQUEL R 784.0 HEADACHE 05/25/2014 ELLIOT MORENO DDS 46 1.9 SINUSITIS ACUTE 05/25/2014 ELLIOT MORENO DDS J 70 9.9 UNSPECIFIED DISORDER OF SKIN AND SUBCUTANEOUS TISSUE 05/25/2014 WHITE DDS, ELLIOT J 78 4.0 HEADACHE 05/25/2014 CARMEN GIBBS MD N 461 .9 SINUSITIS ACUTE 05/25/2014 CARMEN GIBBS MD N 709 .9 UNSPECIFIED DISORDER OF SKIN AND SUBCUTANEOUS TISSUE 05/25/2014 CARMEN GIBBS MD N 784 .0 HEADACHE 05/25/2014 MADL ASSURANCE ENGINEERLETICIA ChristieA L 461 .9 SINUSITIS ACUTE 05/25/2014 MADL ASSURANCE ENGINEER, ANSON L 709 .9 UNSPECIFIED DISORDER OF SKIN AND SUBCUTANEOUS TISSUE 05/25/2014 MADL LETICIA BAUMANNA L 784 .0 HEADACHE 05/25/2014 CARMEN GIBBS MD N 461 .9 SINUSITIS ACUTE 05/25/2014 CARMEN GIBBS MD N 709 .9 UNSPECIFIED DISORDER OF SKIN AND SUBCUTANEOUS TISSUE 05/25/2014 CARMEN GIBBS MD N 784 .0 HEADACHE 05/25/2014 CARMEN GIBBS MD N 461 .9 SINUSITIS ACUTE 05/25/2014 CARMEN GIBBS MD N 709 .9 UNSPECIFIED DISORDER OF SKIN AND SUBCUTANEOUS TISSUE 05/25/2014 CARMEN GIBBS MD N 784 .0 HEADACHE 05/25/2014 MADL CINTHIA BAUMANNWNYA L 461 .9 SINUSITIS ACUTE 05/25/2014 MADL CINTHIA BAUMANNWNYA L 709 .9 UNSPECIFIED DISORDER OF SKIN AND SUBCUTANEOUS TISSUE 05/25/2014 MADLETICIA Leblanc APRNA L 784 .0 HEADACHE 05/25/2014 SUDHIR ROLON DOA K 461.9 SINUSITIS ACUTE 05/25/2014 SUDHIR ROLON DOA K 709.9 UNSPECIFIED DISORDER OF SKIN AND SUBCUTANEOUS TISSUE 05/25/2014 SUDHIR ROLON DOA K 784.0 HEADACHE 05/27/2014 RADHA MALLORY MD Ot 784 .0 HEADACHE 05/28/2014 ISSAC MASTERS MD Ot 079. 99 VIRAL INFECTION NOS 05/28/2014 ISSAC MASTERS MD Ot 784. 0 HEADACHE 05/28/2014 Ot 715.36 05/28/2014 Ot 719.06 [...] Ot V74.8 05/28/2014 LUIS MORENO MD Ot 278. 00 05/28/2014 LUIS MORENO MD Ot 311 05/28/2014 LUIS MORENO MD Ot 493. 00 05/28/2014 LUIS MORENO MD Ot 724. 79 05/28/2014 LUIS MORENO MD Ot V58. 69 05/28/2014 LUIS MORENO MD Ot V85. 41 05/28/2014 RONY ALDANA APRN Ot 571.8 05/28/2014 TATA TOMAS MD Ot 724. 70 05/28/2014 TATA TOMAS MD Ot V72. 63 05/28/2014 TATA TOMAS MD Ot V74. 8 05/28/2014 LAZARO HURTADO SENIOR RELIABILITY ENGINEER Ot 278.01 05/28/2014 LAZARO HURTADO SENIOR RELIABILITY ENGINEER Ot 401.9 05/28/2014 LAZARO HURTADO SENIOR RELIABILITY ENGINEER Ot 786.09 05/28/2014 LAZARO HURTADO SENIOR RELIABILITY ENGINEER Ot V85.42 05/31/2014 ELLIOT MORENO DDS 381.01 ACUTE SEROUS OTITIS MEDIA 05/31/2014 CARMEN GIBBS MD 381 .01 ACUTE SEROUS OTITIS MEDIA 05/31/2014 ANSON WADE APRN 381 .01 ACUTE SEROUS OTITIS MEDIA 05/31/2014 CARMEN GIBBS MD 381 .01 ACUTE SEROUS OTITIS MEDIA 05/31/2014 CARMEN GIBBS MD 381 .01 ACUTE SEROUS OTITIS MEDIA 05/31/2014 ANSON WADE APRN 381 .01 ACUTE SEROUS OTITIS MEDIA 05/31/2014 EMIL ROLON DO K 381.01 ACUTE SEROUS OTITIS MEDIA 07/12/2014 CARMEN GIBBS MD 785 .6 ENLARGEMENT OF LYMPH NODES 07/12/2014 CARMEN GIBBS MD 785 .6 ENLARGEMENT OF LYMPH NODES 07/12/2014 ANSON WADE APRN L 785 .6 ENLARGEMENT OF LYMPH NODES 07/12/2014 EMIL ROLON DO K 785.6 ENLARGEMENT OF LYMPH NODES 07/13/2014 CARMEN GIBBS MD N 216 .9 BENIGN NEOPLASM OF SKIN SITE UNSPECIFIED 07/13/2014 CARMEN GIBBS MD N 788 .1 DYSURIA 07/13/2014 CARMEN GIBBS MD N 216 .9 BENIGN NEOPLASM OF SKIN SITE UNSPECIFIED 07/13/2014 CARMEN GIBBS MD 788 .1 DYSURIA 07/13/2014 ANSON WADE APRN L 216 .9 BENIGN NEOPLASM OF SKIN SITE UNSPECIFIED 07/13/2014 ANSON WADE APRN L 788 .1 DYSURIA 07/13/2014 EMIL ROLON DO K 216.9 BENIGN NEOPLASM OF SKIN SITE UNSPECIFIED 07/13/2014 EMIL ROLON DO K 788.1 DYSURIA 08/09/2014 CARMEN GIBBS MD 381 .81 DYSFUNCTION OF EUSTACHIAN TUBE 08/09/2014 ANSON WADE APRN L 381 .81 DYSFUNCTION OF EUSTACHIAN TUBE 08/09/2014 SUDHIR ROLON DOA K 381.81 DYSFUNCTION OF EUSTACHIAN TUBE 08/17/2014 CARMEN GIBBS MD 782 .0 DISTURBANCE OF SKIN SENSATION 08/17/2014 CARMEN GIBBS MD 790 .29 ABNORMAL GLUCOSE 08/17/2014 ANSON WADE APRN L 782 .0 DISTURBANCE OF SKIN SENSATION 08/17/2014 ANSON WADE APRN L 790 .29 ABNORMAL GLUCOSE 08/17/2014 EMIL ROLON DO K 782.0 DISTURBANCE OF SKIN SENSATION 08/17/2014 GONZALES DO EMIL K 790.29 ABNORMAL GLUCOSE 08/28/2014 [facility], CARMEN N 698 .9 PRURITUS NOS 08/28/2014 ANSON WADE APRN 698 .9 PRURITUS NOS 08/28/2014 GONZALES EMIL GAMING K 698.9 PRURITUS NOS 09/04/2014 GEORGES FINN APRN Ot 723 .1 CERVICALGIA 09/06/2014 ANSON WADE APRN L 724 .5 BACKACHE UNSPECIFIED 09/06/2014 EMIL ROLON DO K 724.5 BACKACHE UNSPECIFIED 09/13/2014 [facility], IZABELA Martinez Ot 724.1 PAIN IN THORACIC SPINE 09/13/2014 IZABELA RENDON MD Ot 724.2 LUMBAGO 11/24/2014 [facility], IZABELA Martinez Ot 787.01 NAUSEA WITH VOMITING 11/24/2014 IZABELA RENDON MD Ot 789.06 ABDOMINAL PAIN, EPIGASTRIC 02/02/2015 DEE BAH MD Ot 723.0 02/02/2015 DEE BAH MD Ot 724.0 2 02/16/2015 DEE BAH MD Ot 723.0 02/16/2015 DEE BAH MD Ot 724.0 2 04/15/2015 DEE BAH MD Ot 723.0 04/15/2015 DEE BAH MD Ot 724.0 2 05/23/2015 [facility], ROCHELLE Salgado Ot M77.8 06/02/2015 Ot 715.36 06/02/2015 Ot 719.06 06/02/2015 [...] Ot V74.8 06/02/2015 LUIS MORENO MD Ot 278. 00 06/02/2015 LUIS MORENO MD Ot 311 06/02/2015 LUIS MORENO MD Ot 493. 00 06/02/2015 LUIS MORENO MD Ot 724. 79 06/02/2015 LUIS MORENO MD Ot V58. 69 06/02/2015 LUIS MORENO MD Ot V85. 41 06/02/2015 RONY ALDANA APRN Ot 571.8 06/02/2015 TATA TOMAS MD Ot 724. 70 06/02/2015 TATA TOMAS MD Ot V72. 63 06/02/2015 TATA TOMAS MD Ot V74. 8 06/02/2015 LAZARO HURTADO SENIOR RELIABILITY ENGINEER Ot 278.01 06/02/2015 LAZARO HURTADO SENIOR RELIABILITY ENGINEER Ot 401.9 06/02/2015 LAZARO HURTADO SENIOR RELIABILITY ENGINEER Ot 786.09 06/02/2015 LAZARO HURTADO SENIOR RELIABILITY ENGINEER Ot V85.42 06/02/2015 DEE BAH MD Ot 723.0 06/02/2015 DEE BAH MD Ot 724.0 2 06/02/2015 ROCHELLE CANNON MD Ot M77.8 06/08/2015 ROCHELLE CANNON MD Ot M22.41 CHONDROMALACIA PATELLAE, RIGHT KNEE 06/08/2015 ROCHELLE CANNON MD Ot M23.221 DERANG OF POST HORN OF MEDIAL MENSC D/T 06/08/2015 ROCHELLE CANNON MD Ot Z79.899 OTHER [facility] (CURRENT) DRUG THERAPY 06/08/2015 ROCHELLE CANNON MD [...] Ot V74.8 06/14/2015 LUIS MORENO MD Ot 278. 00 06/14/2015 LUIS MORENO MD Ot 311 06/14/2015 LUIS MORENO MD Ot 493. 00 06/14/2015 LUIS MORENO MD Ot 724. 79 06/14/2015 LUIS MORENO MD Ot V58. 69 06/14/2015 LUIS MORENO MD Ot V85. 41 06/14/2015 RONY ALDANA APRN Ot 571.8 06/14/2015 TATA TOMAS MD Ot 724. 70 06/14/2015 TATA TOMAS MD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 POSTPROCEDURAL STATES 04/19/2017 GEORGES FINN APRN Ot F32 .9 MAJOR DEPRESSIVE DISORDER, SINGLE EPISOD 04/19/2017 GEORGES FINN APRN Ot F41 .9 ANXIETY DISORDER, UNSPECIFIED 04/19/2017 GEORGES FINN APRN Ot G43.909 MIGRAINE, UNSP, NOT INTRACTABLE, WITHOUT 04/19/2017 GEOR[place]ES FINN APRN Ot G89.29 OTHER CHRONIC PAIN 04/19/2017 GEORGES FINN APRN Ot J45.909 UNSPECIFIED ASTHMA, UNCOMPLICATED 04/19/2017 GEORGES FINN APRN Ot K59.00 CONSTIPATION, UNSPECIFIED 04/19/2017 GEORGES FINN APRN Ot K85.91 ACUTE PANCREATITIS WITH UNINFECTED NECRO 04/19/2017 GOERGES FINN APRN Ot R10.84 GENERALIZED ABDOMINAL PAIN [...] SPECIFIED PART 04/19/2017 GEORGES FINN APRN Ot Z90 .5 ACQUIRED ABSENCE OF KIDNEY 04/19/2017 GEORGES FINN [...] Ot Z98.890 OTHER SPECIFIED POSTPROCEDURAL STATES 04/30/2017 YAN CHAPARRO DO Ot F32.9 MAJOR DEPRESSIVE DISORDER, SINGLE EPISOD 04/30/2017 SHANKAR YAN Hurd Ot F41.9 ANXIETY DISORDER, UNSPECIFIED 04/30/2017 SHANKAR YAN Hurd Ot G43.909 MIGRAINE, UNSP, NOT INTRACTABLE, WITHOUT 04/30/2017 SHANKAR DO YAN K Ot G89.18 OTHER ACUTE POSTPROCEDURAL PAIN 04/30/2017 SHANKAR YAN K Ot J45.909 UNSPECIFIED ASTHMA, UNCOMPLICATED 04/30/2017 SHANKAR YAN K Ot R10.32 LEFT LOWER QUADRANT PAIN 04/30/2017 SHANKAR YAN K Ot Z82.49 FAMILY HX OF ISCHEM HEART DIS AND OTH DI 04/30/2017 SHANKAR GAMING YAN Vickey Ot Z86.010 PERSONAL HISTORY OF COLONIC POLYPS 04/30/2017 SHANKAR GAMING YAN Vickey Ot Z86.19 PERSONAL HISTORY OF OTHER INFECTIOUS AND 04/30/2017 SHANKAR YAN K Ot Z87.19 PERSONAL HISTORY OF OTHER DISEASES OF TH 04/30/2017 SHANKAR GAMING YAN Vickey Ot Z87.440 PERSONAL HISTORY OF URINARY (TRACT) INFE 04/30/2017 SHANKAR GAMING YAN K Ot Z90.49 ACQUIRED ABSENCE OF OTHER SPECIFIED PART 04/30/2017 SHANKAR GAMING YAN K Ot Z90.5 ACQUIRED ABSENCE OF KIDNEY 04/30/2017 SHANKAR GAMING YAN K Ot Z90.710 ACQUIRED ABSENCE OF BOTH CERVIX AND UTER 04/30/2017 SHANKAR GAMING YAN K Ot Z90.89 ACQUIRED ABSENCE OF OTHER ORGANS 05/06/2017 SHANKAR YAN Vickey Ot F32.9 MAJOR DEPRESSIVE DISORDER, SINGLE EPISOD 05/06/2017 SHANKAR YAN Vickey Ot F41.9 ANXIETY DISORDER, UNSPECIFIED 05/06/2017 SHANKAR DO YAN K Ot G43.909 MIGRAINE, UNSP, NOT INTRACTABLE, WITHOUT 05/06/2017 SHANKAR YAN K Ot G89.18 OTHER ACUTE POSTPROCEDURAL PAIN 05/06/2017 SHANKAR YAN K Ot J45.909 UNSPECIFIED ASTHMA, UNCOMPLICATED 05/06/2017 SHANKAR DO YAN K Ot R10.32 LEFT LOWER QUADRANT PAIN 05/06/2017 SHANKAR YAN K Ot Z82.49 FAMILY HX OF [...] ABSENCE OF OTHER ORGANS 05/30/2017 Ot 620.2 OVAR SUNITA CYST NEC/NOS 05/30/2017 Ot 789.00 ABD OMINAL PAIN, UNSPECIFIED SITE 05/30/2017 Ot V72.63 PRE -PROCEDURAL LABORATORY EXAMINATION 05/30/2017 Ot V74.8 SCRE EN-BACTERIAL DIS NEC 05/30/2017 LUIS MORENO MD Ot 278. 00 OBESITY, NOS 05/30/2017 LUIS MORENO MD Ot 311 DEPRESSIVE DISORDER NEC 05/30/2017 LUIS MORENO MD Ot 493. 00 EXTRINSIC ASTHMA, NOS 05/30/2017 LUIS MORENO MD Ot 724. 79 DISORDER OF COCCYX NEC 05/30/2017 LUIS MORENO MD Ot V58. 69 OTH MED,LT,CURRENT USE 05/30/2017 LUIS MORENO MD Ot V85. 41 BODY MASS INDEX 40.0-44.9, ADULT 05/30/2017 RONY ALDANA ASSURANCE ENGINEER Ot 571.8 CHRONIC LIVER DIS NEC 05/30/2017 TATA TOMAS MD Ot 724. 70 DISORDER OF COCCYX NOS 05/30/2017 TATA TOMAS MD Ot V72. 63 PRE-PROCEDURAL LABORATORY EXAMINATION 05/30/2017 TATA TOMAS MD Ot V74. 8 SCREEN-BACTERIAL DIS NEC 05/30/2017 LAZARO HURTADO SENIOR RELIABILITY ENGINEER Ot 278.01 MORBID OBESITY 05/30/2017 LAZARO HURTADO SENIOR RELIABILITY ENGINEER Ot 401.9 HYPERTENSION NOS 05/30/2017 BRYANT LAZAROHER Benji COUCH Ot 786.09 RESPIRATORY ABNORM NEC 05/30/2017 LAZARO HURTADO Ot V85.42 BODY MASS INDEX 45.0-49.9, ADULT 05/30/2017 DEE BAH MD Ot 723.0 CERVICAL SPINAL STENOSIS 05/30/2017 DEE BAH MD Ot 724.0 2 SPINAL STENOSIS, LUMBAR REG, W/OUT NEURO 05/30/2017 ROCHELLE CANNON MD, Ot M77.8 OTHER ENTHESOPATHIES, NOT ELSEWHERE CLAS 05/30/2017 ROCHELLE CANNON MD, Ot M23.8X1 OTHER INTERNAL DERANGEMENTS OF RIGHT KNE 05/30/2017 ROCHELLE CANNON MD, Ot Z01.818 ENCOUNTER FOR OTHER PREPROCEDURAL EXAMIN 05/30/2017 ROCHELLE CANNON MD, Ot Z11.2 ENCOUNTER FOR SCREENING FOR OTHER BACTER 05/30/2017 CARMEN GIBBS MD Ot E78 .2 MIXED HYPERLIPIDEMIA 05/30/2017 ROCHELLE CANNON MD, Ot [...] MEDIAL MENISCUS, CURRENT INJ 05/30/2017 CARMEN GIBBS MD Ot R04 .2 HEMOPTYSIS 05/30/2017 CARMEN GIBBS MD Ot R22 .1 LOCALIZED SWELLING, MASS AND LUMP, NECK 05/30/2017 CARMEN GIBBS MD Ot R22 .1 LOCALIZED SWELLING, MASS AND LUMP, NECK 05/30/2017 GEORGES FINN APRN Ot F32 .9 MAJOR DEPRESSIVE DISORDER, SINGLE EPISOD 05/30/2017 GEORGES FINN APRN Ot F41 .9 ANXIETY DISORDER, UNSPECIFIED 05/30/2017 GEORGES FINN APRN Ot G43.909 MIGRAINE, UNSP, NOT INTRACTABLE, WITHOUT 05/30/2017 GEORGES FINN ASSURANCE ENGINEER Ot J45.909 UNSPECIFIED ASTHMA, UNCOMPLICATED 05/30/2017 GEORGES FINN APRN Ot N39 .0 URINARY TRACT INFECTION, SITE NOT SPECIF 05/30/2017 GEORGES FINN APRN Ot R30 .0 DYSURIA 05/30/2017 GEORGES FINN ASSURANCE ENGINEER Ot Z82.49 FAMILY HX OF ISCHEM HEART [...] SPECIFIED PART 05/30/2017 GEORGES FINN APRN Ot Z90 .5 ACQUIRED ABSENCE OF KIDNEY 05/30/2017 GEORGES FINN APRN Ot Z90.710 ACQUIRED ABSENCE OF BOTH CERVIX AND UTER 05/30/2017 GEORGES FINN APRN Ot Z90.89 ACQUIRED ABSENCE OF OTHER ORGANS 06/28/2017 YUNIOR LYLES MD Ot Z01.81 8 ENCOUNTER FOR OTHER PREPROCEDURAL EXAMIN 06/28/2017 YUNIOR LYLES MD Ot Z12.11 ENCOUNTER FOR SCREENING FOR MALIGNANT NE 06/28/2017 YUNIOR LYLES MD Ot Z86.01 0 PERSONAL HISTORY OF COLONIC POLYPS 06/28/2017 YUNIOR LYLES MD Ot Z01.81 8 ENCOUNTER FOR OTHER PREPROCEDURAL EXAMIN 06/28/2017 YUNIOR LYLES MD Ot Z12.11 ENCOUNTER FOR SCREENING FOR MALIGNANT NE 06/28/2017 YUNIOR LYLES MD Ot Z86.01 0 PERSONAL HISTORY OF COLONIC POLYPS 06/29/2017 YUKI MARCH MD Ot F32.9 MAJOR DEPRESSIVE DISORDER, SINGLE EPISOD 06/29/2017 YUKI MARCH MD Ot F41.9 ANXIETY DISORDER, UNSPECIFIED 06/29/2017 YUKI MARCH MD Ot G43.909 MIGRAINE, UNSP, NOT INTRACTABLE, WITHOUT 06/29/2017 YUKI MARCH MD, Ot J06.9 ACUTE UPPER RESPIRATORY INFECTION, UNSPE 06/29/2017 YUKI MARCH MD, Ot J45.909 UNSPECIFIED ASTHMA, UNCOMPLICATED 06/29/2017 YUKI MARCH MD Ot R10.10 UPPER ABDOMINAL PAIN, UNSPECIFIED 06/29/2017 YKUI MARCH MD, Ot R10.13 EPIGASTRIC PAIN 06/29/2017 [...] DEGREE HEMORRHOIDS 07/03/2017 YUNIOR LYLES MD Ot Z79.89 9 OTHER PATENT LAW SPECIALIST (CURRENT) DRUG THERAPY 07/03/2017 YUNIOR LYLES MD, Ot Z85.52 8 PERSONAL HISTORY OF OTHER MALIGNANT NEOP 07/03/2017 YUNIOR LYLES MD Ot Z86.01 0 PERSONAL HISTORY OF COLONIC POLYPS 07/03/2017 YUNIOR [...] DEGREE HEMORRHOIDS 07/04/2017 YUNIOR LYLES MD Ot Z79.89 9 OTHER PATENT LAW SPECIALIST (CURRENT) DRUG THERAPY 07/04/2017 YUNIOR LYLES MD Ot Z85.52 8 PERSONAL HISTORY OF OTHER MALIGNANT NEOP 07/04/2017 YUNIOR LYLES MD Ot Z86.01 0 PERSONAL HISTORY OF COLONIC POLYPS 07/04/2017 YUNIOR [...] DEGREE HEMORRHOIDS 07/09/2017 YUNIOR LYLES MD Ot Z79.89 9 OTHER [facility] (CURRENT) DRUG THERAPY 07/09/2017 YUNIOR LYLES MD Ot Z85.52 8 PERSONAL HISTORY OF OTHER MALIGNANT NEOP 07/09/2017 YUNIOR LYLES MD Ot Z86.01 0 PERSONAL HISTORY OF COLONIC POLYPS 07/09/2017 YUNIOR YLLES MD Ot Z88.5 ALLERGY STATUS TO NARCOTIC [...] OTHER ORGANS 07/29/2017 MAKAYLA HAWKINS MD Ot F32. 9 MAJOR DEPRESSIVE DISORDER, SINGLE EPISOD 07/29/2017 MAKAYLA HAWKINS MD Ot F41. 9 ANXIETY DISORDER, UNSPECIFIED 07/29/2017 MAKAYLA HAWKINS MD Ot G43.909 MIGRAINE, UNSP, NOT INTRACTABLE, WITHOUT 07/29/2017 MAKAYLA HAWKINS MD Ot J45.909 UNSPECIFIED ASTHMA, UNCOMPLICATED 07/29/2017 MAKAYLA HAWKINS MD Ot R07. 2 PRECORDIAL PAIN 07/29/2017 MAKAYLA HAWKINS MD Ot W18.30XA FALL ON SAME LEVEL, UNSPECIFIED, INITIAL 07/29/2017 MAKAYLA HAWKINS MD Ot Z82. 49 FAMILY HX OF ISCHEM HEART DIS AND OTH DI 07/29/2017 MAKAYLA HAWKINS MD Ot Z85.528 PERSONAL HISTORY OF OTHER MALIGNANT NEOP 07/29/2017 MAKAYLA HAWKINS MD Ot Z86.010 PERSONAL HISTORY OF COLONIC POLYPS 07/29/2017 MAKAYLA HAWKINS MD Ot Z86. 19 PERSONAL HISTORY OF OTHER INFECTIOUS AND 07/29/2017 MAKAYLA HAWKINS MD Ot Z87. 19 PERSONAL HISTORY OF OTHER DISEASES OF TH 07/29/2017 MAKAYLA HAWKINS MD Ot Z87.440 PERSONAL HISTORY OF URINARY (TRACT) INFE 07/29/2017 MAKAYLA HAWKINS MD Ot Z88. 0 ALLERGY STATUS TO PENICILLIN 07/29/2017 MAKAYLA HAWKINS MD Ot Z88. 5 ALLERGY STATUS TO NARCOTIC AGENT STATUS 07/29/2017 MAKAYLA HAWKINS MD Ot Z90.710 ACQUIRED ABSENCE OF BOTH CERVIX AND UTER 07/29/2017 MAKAYLA HAWKINS MD Ot Z90. 89 ACQUIRED ABSENCE OF OTHER ORGANS 07/31/2017 MAKAYLA HAWKINS MD Ot F32. 9 MAJOR DEPRESSIVE DISORDER, SINGLE EPISOD 07/31/2017 MAKAYLA HAWKINS MD Ot F41. 9 ANXIETY DISORDER, UNSPECIFIED 07/31/2017 MAKAYLA HAWKINS MD Ot G43.909 MIGRAINE, UNSP, NOT INTRACTABLE, WITHOUT 07/31/2017 MAKAYLA HAWKINS MD Ot J45.909 UNSPECIFIED ASTHMA, UNCOMPLICATED 07/31/2017 MAKAYLA HAWKINS MD Ot R07. 2 PRECORDIAL PAIN 07/31/2017 MAKAYLA HAWKINS MD Ot W18.30XA FALL ON SAME LEVEL, UNSPECIFIED, INITIAL 07/31/2017 MAKAYLA HAWKINS MD Ot Z82. 49 FAMILY HX OF ISCHEM HEART DIS AND OTH DI 07/31/2017 MAKAYLA HAWKINS MD Ot Z85.528 PERSONAL HISTORY OF OTHER MALIGNANT NEOP 07/31/2017 MAKAYLA HAWKINS MD Ot Z86.010 PERSONAL HISTORY OF COLONIC POLYPS 07/31/2017 MAKAYLA HAWKINS MD Ot Z86. 19 PERSONAL HISTORY OF OTHER INFECTIOUS AND 07/31/2017 MAKAYLA HAWKINS MD Ot Z87. 19 PERSONAL HISTORY OF OTHER DISEASES OF TH 07/31/2017 MAKAYLA HAWKINS MD Ot Z87.440 PERSONAL HISTORY OF URINARY (TRACT) INFE 07/31/2017 MAKAYLA HAWKINS MD Ot Z88. 0 ALLERGY STATUS TO PENICILLIN 07/31/2017 MAKAYLA HAWKINS MD Ot Z88. 5 ALLERGY STATUS TO NARCOTIC AGENT STATUS 07/31/2017 MAKAYLA HAWKINS MD Ot Z90.710 ACQUIRED ABSENCE OF BOTH CERVIX AND UTER 07/31/2017 MAKAYLA HWAKINS MD Ot Z90. 89 ACQUIRED ABSENCE OF OTHER ORGANS 07/31/2017 MAKAYLA HAWKINS MD Ot F32. 9 MAJOR DEPRESSIVE DISORDER, SINGLE EPISOD 07/31/2017 MAKAYLA HAWKINS MD Ot F41. 9 ANXIETY DISORDER, UNSPECIFIED 07/31/2017 MAKAYLA HAWKINS MD Ot G43.909 MIGRAINE, UNSP, NOT INTRACTABLE, WITHOUT 07/31/2017 MAKAYLA HAWKINS MD Ot J45.909 UNSPECIFIED ASTHMA, UNCOMPLICATED 07/31/2017 MAKAYLA HAWKINS MD Ot R07. 2 PRECORDIAL PAIN 07/31/2017 MAKAYLA HAWKINS MD Ot W18.30XA FALL ON SAME LEVEL, UNSPECIFIED, INITIAL 07/31/2017 MAKAYLA HAWKINS MD Ot Z82. 49 FAMILY HX OF ISCHEM HEART DIS AND OTH DI 07/31/2017 MAKAYLA HAWKINS MD Ot Z85.528 PERSONAL HISTORY OF OTHER MALIGNANT NEOP 07/31/2017 MAKAYLA HAWKINS MD Ot Z86.010 PERSONAL HISTORY OF COLONIC POLYPS 07/31/2017 MAKAYLA HAWKINS MD Ot Z86. 19 PERSONAL HISTORY OF OTHER INFECTIOUS AND 07/31/2017 MAKAYLA HAWKINS MD Ot Z87. 19 PERSONAL HISTORY OF OTHER DISEASES OF TH 07/31/2017 MAKAYLA HAWKINS MD Ot Z87.440 PERSONAL HISTORY OF URINARY (TRACT) INFE 07/31/2017 MAKAYLA HAWKINS MD Ot Z88. 0 ALLERGY STATUS TO PENICILLIN 07/31/2017 MAKAYLA HAWKINS MD Ot Z88. 5 ALLERGY STATUS TO NARCOTIC AGENT STATUS 07/31/2017 MAKAYLA HAWKINS MD Ot Z90.710 ACQUIRED ABSENCE OF BOTH CERVIX AND UTER 07/31/2017 MAKAYLA HAWKINS MD Ot Z90. 89 ACQUIRED ABSENCE OF OTHER ORGANS 08/12/2017 MAKAYLA HAWKINS MD Ot F32. 9 MAJOR DEPRESSIVE DISORDER, SINGLE EPISOD 08/12/2017 MAKAYLA HAWKINS MD Ot F41. 9 ANXIETY DISORDER, UNSPECIFIED 08/12/2017 MAKAYLA HAWKINS MD Ot G43.909 MIGRAINE, UNSP, NOT INTRACTABLE, WITHOUT 08/12/2017 MAKAYLA HAWKINS MD Ot J45.909 UNSPECIFIED ASTHMA, UNCOMPLICATED 08/12/2017 MAKAYLA HAWKINS MD Ot K43. 9 VENTRAL HERNIA WITHOUT OBSTRUCTION OR GA 08/12/2017 MAKAYLA HAWKINS MD Ot R10. 9 UNSPECIFIED ABDOMINAL PAIN 08/12/2017 MAKAYLA HAWKINS MD Ot Z82. 49 FAMILY HX OF ISCHEM HEART DIS AND OTH DI 08/12/2017 MAKAYLA HAWKINS MD Ot Z86.010 PERSONAL HISTORY OF COLONIC POLYPS 08/12/2017 MAKAYLA HAWKINS MD Ot Z86. 19 PERSONAL HISTORY OF OTHER INFECTIOUS AND 08/12/2017 MAKAYLA HAWKINS MD Ot Z87. 19 PERSONAL HISTORY OF OTHER DISEASES OF TH 08/12/2017 MAKAYLA HAWKINS MD Ot Z87.440 PERSONAL HISTORY OF URINARY (TRACT) INFE 08/12/2017 MAKAYLA HAWKINS MD Ot Z88. 0 ALLERGY STATUS TO PENICILLIN 08/12/2017 MAKAYLA HAWKINS MD Ot Z88. 5 ALLERGY STATUS TO NARCOTIC AGENT STATUS 08/12/2017 MAKAYLA HAWKINS MD Ot Z90. 49 ACQUIRED ABSENCE OF OTHER SPECIFIED PART 08/12/2017 MAKAYLA HAWKINS MD Ot Z90. 5 ACQUIRED ABSENCE OF KIDNEY 08/12/2017 MAKAYLA HAWKINS MD Ot Z90.710 ACQUIRED ABSENCE OF BOTH CERVIX AND UTER 08/12/2017 MAKAYLA HAWKINS MD Ot Z90. 89 ACQUIRED ABSENCE OF OTHER ORGANS 08/14/2017 MAKAYLA HAWKINS MD Ot F32. 9 MAJOR DEPRESSIVE DISORDER, SINGLE EPISOD 08/14/2017 MAKAYLA HAWKINS MD Ot F41. 9 ANXIETY DISORDER, UNSPECIFIED 08/14/2017 MAKAYLA HAWKINS MD Ot G43.909 MIGRAINE, UNSP, NOT INTRACTABLE, WITHOUT 08/14/2017 MAKAYLA HAWKINS MD Ot J45.909 UNSPECIFIED ASTHMA, UNCOMPLICATED 08/14/2017 MAKAYLA HAWKINS MD Ot K43. 9 VENTRAL HERNIA WITHOUT OBSTRUCTION OR GA 08/14/2017 MAKAYLA HAWKINS MD Ot R10. 9 UNSPECIFIED ABDOMINAL PAIN 08/14/2017 MAKAYLA HAWKINS MD Ot Z82. 49 FAMILY HX OF ISCHEM HEART DIS AND OTH DI 08/14/2017 MAKAYLA HAWKINS MD Ot Z86.010 PERSONAL HISTORY OF COLONIC POLYPS 08/14/2017 MAKAYLA HAWKINS MD Ot Z86. 19 PERSONAL HISTORY OF OTHER INFECTIOUS AND 08/14/2017 MAKAYLA HAWKINS MD Ot Z87. 19 PERSONAL HISTORY OF OTHER DISEASES OF TH 08/14/2017 MAKAYLA HAWKINS MD Ot Z87.440 PERSONAL HISTORY OF URINARY (TRACT) INFE 08/14/2017 MAKAYLA HAWKINS MD Ot Z88. 0 ALLERGY STATUS TO PENICILLIN 08/14/2017 MAKAYLA HAWKINS MD Ot Z88. 5 ALLERGY STATUS TO NARCOTIC AGENT STATUS 08/14/2017 MAKAYLA HAWKINS MD Ot Z90. 49 ACQUIRED ABSENCE OF OTHER SPECIFIED PART 08/14/2017 MAKAYLA HAWKINS MD Ot Z90. 5 ACQUIRED ABSENCE OF KIDNEY 08/14/2017 MAKAYLA HAWKINS MD Ot Z90.710 ACQUIRED ABSENCE OF BOTH CERVIX AND UTER 08/14/2017 MAKAYLA HAWKINS MD Ot Z90. 89 ACQUIRED ABSENCE OF OTHER ORGANS 08/20/2017 YUNIOR LYLES MD, Ot 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 08/20/2017 YUNIOR LYLES MD Ot Z01.81 8 ENCOUNTER FOR OTHER PREPROCEDURAL EXAMIN 08/21/2017 YUNIOR LYLES MD, Ot 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 08/21/2017 YUNIOR LYLES MD Ot Z01.81 8 ENCOUNTER FOR OTHER PREPROCEDURAL EXAMIN 08/22/2017 YUNIOR LYLES MD Ot C64.2 MALIGNANT NEOPLASM OF LEFT KIDNEY, EXCEP 08/22/2017 YUNIOR LYLES MD Ot F32.9 MAJOR DEPRESSIVE DISORDER, SINGLE EPISOD 08/22/2017 YUNIOR LYLES MD Ot F41.9 ANXIETY DISORDER, UNSPECIFIED 08/22/2017 YUNIOR LYLES MD Ot G25.81 RESTLESS LEGS SYNDROME 08/22/2017 YUNIOR LYLES MD Ot J45.90 9 UNSPECIFIED ASTHMA, UNCOMPLICATED 08/22/2017 YUNIOR LYLES MD, Ot 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 08/22/2017 YUNIOR LYLES MD Ot K86.1 OTHER CHRONIC PANCREATITIS 08/22/2017 YUNIOR LYLES MD Ot Z79.89 9 OTHER PATENT LAW SPECIALIST (CURRENT) DRUG THERAPY 08/22/2017 YUNIOR LYLES MD Ot Z90.5 ACQUIRED ABSENCE OF KIDNEY 08/22/2017 Ot 620.2 OVAR SUNITA CYST NEC/NOS 08/22/2017 Ot 789.00 ABD OMINAL PAIN, UNSPECIFIED SITE 08/22/2017 Ot V72.63 PRE -PROCEDURAL LABORATORY EXAMINATION 08/22/2017 Ot V74.8 SCRE EN-BACTERIAL DIS NEC 08/22/2017 LUIS MORENO MD Ot 278. 00 OBESITY, NOS 08/22/2017 LUIS MORENO MD Ot 311 DEPRESSIVE DISORDER NEC 08/22/2017 LUIS MORENO MD Ot 493. 00 EXTRINSIC ASTHMA, NOS 08/22/2017 LUIS MORENO MD Ot 724. 79 DISORDER OF COCCYX NEC 08/22/2017 LUIS MORENO MD Ot V58. 69 OTH MED,LT,CURRENT USE 08/22/2017 LUIS MORENO MD Ot V85. 41 BODY MASS INDEX 40.0-44.9, ADULT 08/22/2017 KATYAJULIORONY A ASSURANCE ENGINEER Ot 571.8 CHRONIC LIVER DIS NEC 08/22/2017 TTAA TOMAS MD Ot 724. 70 DISORDER OF COCCYX NOS 08/22/2017 TATA TOMAS MD Ot V72. 63 PRE-PROCEDURAL LABORATORY EXAMINATION 08/22/2017 TATA TOMAS MD Ot V74. 8 SCREEN-BACTERIAL DIS NEC 08/22/2017 LAZARO HURTADO SENIOR RELIABILITY ENGINEER Ot 278.01 MORBID OBESITY 08/22/2017 LAZARO HURTADO SENIOR RELIABILITY ENGINEER Ot 401.9 HYPERTENSION NOS 08/22/2017 LAZARO HURTADO SENIOR RELIABILITY ENGINEER Ot 786.09 RESPIRATORY ABNORM NEC 08/22/2017 LAZARO HURTADO SENIOR RELIABILITY ENGINEER Ot V85.42 BODY MASS INDEX 45.0-49.9, ADULT 08/22/2017 DEE BAH MD Ot 723.0 CERVICAL SPINAL STENOSIS 08/22/2017 DEE BAH MD Ot 724.0 2 SPINAL STENOSIS, LUMBAR REG, W/OUT NEURO 08/22/2017 ROCHELLE CANNON MD Ot M77.8 OTHER ENTHESOPATHIES, NOT ELSEWHERE CLAS 08/22/2017 ROCHELLE CANNON MD, Ot M23.8X1 OTHER INTERNAL DERANGEMENTS OF RIGHT KNE 08/22/2017 ROCHELLE CANNON MD, Ot Z01.818 ENCOUNTER FOR OTHER PREPROCEDURAL EXAMIN 08/22/2017 ROCHELLE CANNON MD, Ot Z11.2 ENCOUNTER FOR SCREENING FOR OTHER BACTER 08/22/2017 CARMEN GIBBS MD, Ot E78 .2 MIXED HYPERLIPIDEMIA 08/22/2017 ROCHELLE CANNON MD, Ot [...] MEDIAL MENISCUS, CURRENT INJ 08/22/2017 CARMEN GIBBS MD, Ot R04 .2 HEMOPTYSIS 08/22/2017 CARMEN GIBBS MD, Ot R22 .1 LOCALIZED SWELLING, MASS AND LUMP, NECK 08/22/2017 CARMEN GIBBS MD, Ot R22 .1 LOCALIZED SWELLING, MASS AND LUMP, NECK 08/23/2017 YUNIOR LYLES MD, Ot C64.2 MALIGNANT NEOPLASM OF LEFT KIDNEY, EXCEP 08/23/2017 YUNIOR LYLES MD, Ot F32.9 MAJOR DEPRESSIVE DISORDER, SINGLE EPISOD 08/23/2017 YUNIOR LYLES MD, Ot F41.9 ANXIETY DISORDER, UNSPECIFIED 08/23/2017 YUNIOR LYLES MD, Ot G25.81 RESTLESS LEGS SYNDROME 08/23/2017 YUNIOR LYLES MD, Ot J45.90 9 UNSPECIFIED ASTHMA, UNCOMPLICATED 08/23/2017 YUNIOR LYLES MD, Ot 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 08/23/2017 YUNIOR LYLES MD, Ot K86.1 OTHER CHRONIC PANCREATITIS 08/23/2017 YUNIOR LYLES MD, Ot Z79.89 9 OTHER PATENT LAW SPECIALIST (CURRENT) DRUG THERAPY 08/23/2017 YUNIOR LYLES MD, Ot Z90.5 ACQUIRED ABSENCE OF KIDNEY 08/30/2017 YAN CHAPARRO DO, Ot F32.9 MAJOR DEPRESSIVE DISORDER, SINGLE EPISOD 08/30/2017 YAN CHAPARRO DO, Ot F41.9 ANXIETY DISORDER, UNSPECIFIED 08/30/2017 SHANKAR YAN K Ot G25.81 RESTLESS LEGS SYNDROME 08/30/2017 SHANKAR DO YAN K Ot G43.909 MIGRAINE, UNSP, NOT INTRACTABLE, WITHOUT 08/30/2017 SHANKAR YAN Vickey Ot J45.909 UNSPECIFIED ASTHMA, UNCOMPLICATED 08/30/2017 SHANKAR YAN K Ot K91.89 OTH POSTPROCEDURAL COMPLICATIONS AND DIS 08/30/2017 SHANKAR DO YAN K Ot Z85.528 PERSONAL HISTORY OF OTHER MALIGNANT NEOP 08/30/2017 SHANKAR DO YAN K Ot Z87.19 PERSONAL HISTORY OF OTHER DISEASES OF TH 08/30/2017 YAN CHAPARRO DO Ot Z87.2 PERSONAL HISTORY OF DISEASES OF THE SKIN 08/30/2017 SHANKAR YAN GAMING Ot Z87.891 PERSONAL HISTORY OF NICOTINE DEPENDENCE 08/30/2017 SHANKAR DO YAN K Ot Z88.0 ALLERGY STATUS TO PENICILLIN 08/30/2017 SHANKAR YAN GAMING Ot Z88.6 ALLERGY STATUS TO ANALGESIC AGENT STATUS 08/30/2017 SHANKAR DO YAN K Ot Z90.49 ACQUIRED ABSENCE OF OTHER SPECIFIED PART 08/30/2017 YAN CHAPARRO DO Ot Z90.5 ACQUIRED ABSENCE OF KIDNEY 08/30/2017 SHANKAR YAN GAMING Ot Z90.710 ACQUIRED ABSENCE OF BOTH CERVIX AND UTER 08/30/2017 SHANKAR RONNI GAMINGA Vickey Ot Z90.89 ACQUIRED ABSENCE OF OTHER ORGANS 09/02/2017 YAN CHAPARRO DO Ot F32.9 MAJOR DEPRESSIVE DISORDER, SINGLE EPISOD 09/02/2017 SHANKAR YAN GAMING Ot F41.9 ANXIETY DISORDER, UNSPECIFIED 09/02/2017 SHANKAR DO YAN K Ot G25.81 RESTLESS LEGS SYNDROME 09/02/2017 SHANKAR DO YAN K Ot G43.909 MIGRAINE, UNSP, NOT INTRACTABLE, WITHOUT 09/02/2017 SHANKAR DO YAN K Ot J45.909 UNSPECIFIED ASTHMA, UNCOMPLICATED 09/02/2017 SHANKAR DO YAN K Ot K91.89 OTH POSTPROCEDURAL COMPLICATIONS AND DIS 09/02/2017 SHANKAR YAN GAMING Ot Z85.528 PERSONAL HISTORY OF OTHER MALIGNANT NEOP 09/02/2017 YAN CHAPARRO DO, Ot Z87.19 PERSONAL HISTORY OF OTHER DISEASES OF TH 09/02/2017 SHANKAR YAN GAMING Ot Z87.2 PERSONAL HISTORY OF DISEASES OF THE SKIN 09/02/2017 SHANKAR DOYAN Ot Z87.891 PERSONAL HISTORY OF NICOTINE DEPENDENCE 09/02/2017 SHANKAR GAMINGYAN Ot Z88.0 ALLERGY STATUS TO PENICILLIN 09/02/2017 SHANKAR GAMINGYAN Ot Z88.6 ALLERGY STATUS TO ANALGESIC AGENT STATUS 09/02/2017 SHANKAR GAMINGYAN Ot Z90.49 ACQUIRED ABSENCE OF OTHER SPECIFIED PART 09/02/2017 SHANKAR YAN Ot Z90.5 ACQUIRED ABSENCE OF KIDNEY 09/02/2017 SHANKAR DOYAN Ot Z90.710 ACQUIRED ABSENCE OF BOTH CERVIX AND UTER 09/02/2017 SHANKAR YAN Ot Z90.89 ACQUIRED ABSENCE OF OTHER ORGANS 09/03/2017 YUNIOR LYLES MD, Ot F32.9 MAJOR DEPRESSIVE DISORDER, SINGLE EPISOD 09/03/2017 YUNIOR LYLES MD, Ot F41.9 ANXIETY DISORDER, UNSPECIFIED 09/03/2017 YUNIOR LYLES MD, Ot G25.81 RESTLESS LEGS SYNDROME 09/03/2017 YUNIOR LYLES MD, Ot J45.90 9 UNSPECIFIED ASTHMA, UNCOMPLICATED 09/03/2017 YUNIOR LYLES MD, Ot K59.09 OTHER CONSTIPATION 09/03/2017 YUNIOR LYLES MD, Ot K76.0 FATTY (CHANGE OF) LIVER, NOT ELSEWHERE C 09/03/2017 YUNIOR LYLES MD, Ot K86.89 OTHER SPECIFIED DISEASES OF PANCREAS 09/03/2017 YUNIOR LYLES MD, Ot 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 09/03/2017 YUNIOR LYLES MD, Ot M54.9 DORSALGIA, UNSPECIFIED 09/03/2017 YUNIOR LYLES MD, Ot R11.2 NAUSEA WITH VOMITING, UNSPECIFIED 09/03/2017 YUNIOR LYLES MD, Ot Z85.52 8 PERSONAL HISTORY OF OTHER MALIGNANT NEOP 09/03/2017 YUNIOR LYLES MD, Ot Z86.69 PERSONAL HISTORY OF DIS OF THE NERVOUS S 09/03/2017 YUNIOR LYLES MD, Ot Z87.89 1 PERSONAL HISTORY OF NICOTINE DEPENDENCE 09/03/2017 YUNIOR LYLES MD Ot Z90.5 ACQUIRED ABSENCE OF KIDNEY 09/04/2017 YUNIOR LYLES MD Ot F32.9 MAJOR DEPRESSIVE DISORDER, SINGLE EPISOD 09/04/2017 YUNIOR LYLES MD Ot F41.9 ANXIETY DISORDER, UNSPECIFIED 09/04/2017 YUNIOR LYLES MD Ot G25.81 RESTLESS LEGS SYNDROME 09/04/2017 YUNIOR LYLES MD Ot J45.90 9 UNSPECIFIED ASTHMA, UNCOMPLICATED 09/04/2017 YUNIOR LYLES MD Ot K59.09 OTHER CONSTIPATION 09/04/2017 YUNIOR LYLES MD Ot K76.0 FATTY (CHANGE OF) LIVER, NOT ELSEWHERE C 09/04/2017 YUNIOR LYLES MD Ot K86.89 OTHER SPECIFIED DISEASES OF PANCREAS 09/04/2017 YUNIOR LYLES MD Ot 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 09/04/2017 YUNIOR LYLES MD Ot M54.9 DORSALGIA, UNSPECIFIED 09/04/2017 YUNIOR LYLES MD Ot R11.2 NAUSEA WITH VOMITING, UNSPECIFIED 09/04/2017 YUNIOR LYLES MD Ot Z85.52 8 PERSONAL HISTORY OF OTHER MALIGNANT NEOP 09/04/2017 YUNIOR LYLES MD Ot Z86.69 PERSONAL HISTORY OF DIS OF THE NERVOUS S 09/04/2017 YUNIOR LYLES MD Ot Z87.89 1 PERSONAL HISTORY OF NICOTINE DEPENDENCE 09/04/2017 YUNIOR LYLES MD Ot Z90.5 ACQUIRED ABSENCE OF KIDNEY 09/04/2017 YUNIOR LYLES MD Ot F32.9 MAJOR DEPRESSIVE DISORDER, SINGLE EPISOD 09/04/2017 YUNIOR LYLES MD Ot F41.9 ANXIETY DISORDER, UNSPECIFIED 09/04/2017 YUNIOR LYLES MD Ot G25.81 RESTLESS LEGS SYNDROME 09/04/2017 YUNIOR LYLES MD Ot J45.90 9 UNSPECIFIED ASTHMA, UNCOMPLICATED 09/04/2017 YUNIOR LYLES MD Ot K59.09 OTHER CONSTIPATION 09/04/2017 YUNIOR LYLES MD Ot K76.0 FATTY (CHANGE OF) LIVER, NOT ELSEWHERE C 09/04/2017 YUNIOR LYLES MD, Ot K86.89 OTHER SPECIFIED DISEASES OF PANCREAS 09/04/2017 YUNIOR LYLES MD Ot 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 09/04/2017 YUNIOR LYLES MD, Ot M54.9 DORSALGIA, UNSPECIFIED 09/04/2017 YUNIOR LYLES MD Ot R11.2 NAUSEA WITH VOMITING, UNSPECIFIED 09/04/2017 YUNIOR LYLES MD Ot Z85.52 8 PERSONAL HISTORY OF OTHER MALIGNANT NEOP 09/04/2017 YUNIOR LYLES MD, Ot Z86.69 PERSONAL HISTORY OF DIS OF THE NERVOUS S 09/04/2017 YUNIOR LYLES MD, Ot Z87.89 1 PERSONAL HISTORY OF NICOTINE DEPENDENCE 09/04/2017 YUNIOR LYLES MD, Ot Z90.5 ACQUIRED ABSENCE OF KIDNEY 09/05/2017 YUNIOR LYLES MD Ot F32.9 MAJOR DEPRESSIVE DISORDER, SINGLE EPISOD 09/05/2017 YUNIOR LYLES MD, Ot F41.9 ANXIETY DISORDER, UNSPECIFIED 09/05/2017 YUNIOR LYLES MD Ot G25.81 RESTLESS LEGS SYNDROME 09/05/2017 YUNIOR LYLES MD Ot J45.90 9 UNSPECIFIED ASTHMA, UNCOMPLICATED 09/05/2017 YUNIOR LYLES MD Ot K59.09 OTHER CONSTIPATION 09/05/2017 YUNIOR LYLES MD Ot K76.0 FATTY (CHANGE OF) LIVER, NOT ELSEWHERE C 09/05/2017 YUNIOR LYLES MD Ot K86.89 OTHER SPECIFIED DISEASES OF PANCREAS 09/05/2017 YUNIOR LYLES MD Ot 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 09/05/2017 YUNIOR LYLES MD, Ot M54.9 DORSALGIA, UNSPECIFIED 09/05/2017 YUNIOR LYLES MD Ot R11.2 NAUSEA WITH VOMITING, UNSPECIFIED 09/05/2017 YUNIOR LYLES MD Ot Z85.52 8 PERSONAL HISTORY OF OTHER MALIGNANT NEOP 09/05/2017 YUNIOR LYLES MD Ot Z86.69 PERSONAL HISTORY OF DIS OF THE NERVOUS S 09/05/2017 YUNIOR LYLES MD Ot Z87.89 1 PERSONAL HISTORY OF NICOTINE DEPENDENCE 09/05/2017 [place] YUNIOR Ot Z90.5 ACQUIRED ABSENCE OF KIDNEY 09/25/2017 Ot 620.2 OVAR SUNITA CYST NEC/NOS 09/25/2017 Ot 789.00 ABD OMINAL PAIN, UNSPECIFIED SITE 09/25/2017 Ot V72.63 PRE -PROCEDURAL LABORATORY EXAMINATION 09/25/2017 Ot V74.8 SCRE EN-BACTERIAL DIS NEC 09/25/2017 LUIS MORENO MD Ot 278. 00 OBESITY, NOS 09/25/2017 LUIS MORENO MD Ot 311 DEPRESSIVE DISORDER NEC 09/25/2017 LUIS MORENO MD Ot 493. 00 EXTRINSIC ASTHMA, NOS 09/25/2017 LUIS MORENO MD Ot 724. 79 DISORDER OF COCCYX NEC 09/25/2017 LUIS MORENO MD Ot V58. 69 OTH MED,LT,CURRENT USE 09/25/2017 LUIS MORENO MD Ot V85. 41 BODY MASS INDEX 40.0-44.9, ADULT 09/25/2017 RONY ALDANA ASSURANCE ENGINEER Ot 571.8 CHRONIC LIVER DIS NEC 09/25/2017 TATA TOMAS MD Ot 724. 70 DISORDER OF COCCYX NOS 09/25/2017 TATA TOMAS MD Ot V72. 63 PRE-PROCEDURAL LABORATORY EXAMINATION 09/25/2017 TATA TOMAS MD Ot V74. 8 SCREEN-BACTERIAL DIS NEC 09/25/2017 LAZARO HURTADO SENIOR RELIABILITY ENGINEER Ot 278.01 MORBID OBESITY 09/25/2017 LAZARO HURTADO L SENIOR RELIABILITY ENGINEER Ot 401.9 HYPERTENSION NOS 09/25/2017 LAZARO HURTADO SENIOR RELIABILITY ENGINEER Ot 786.09 RESPIRATORY ABNORM NEC 09/25/2017 LAZARO HURTADO SENIOR RELIABILITY ENGINEER Ot V85.42 BODY MASS INDEX 45.0-49.9, ADULT 09/25/2017 DEE BAH MD Ot 723.0 CERVICAL SPINAL STENOSIS 09/25/2017 DEE BAH MD Ot 724.0 2 SPINAL STENOSIS, LUMBAR REG, W/OUT NEURO 09/25/2017 ROCHELLE CANNON MD Ot M77.8 OTHER ENTHESOPATHIES, NOT ELSEWHERE CLAS 09/25/2017 ROCHELLE CANNON MD, Ot M23.8X1 OTHER INTERNAL DERANGEMENTS OF RIGHT KNE 09/25/2017 ROCHELLE CANNON MD Ot Z01.818 ENCOUNTER FOR OTHER PREPROCEDURAL EXAMIN 09/25/2017 ROCHELLE CANNON MD Ot Z11.2 ENCOUNTER FOR SCREENING FOR OTHER BACTER 09/25/2017 CARMEN GIBBS MD Ot E78 .2 MIXED HYPERLIPIDEMIA 09/25/2017 ROCHELLE CANNON MD, Ot S83.241S OTH TEAR OF MEDIAL MENISCUS, CURRENT INJ 09/25/2017 ROCHELLE CANNON MD, Ot X58.XXXS EXPOSURE TO OTHER SPECIFIED FACTORS, SEQ 09/25/2017 ROCHELLE CANNON MD, Ot Y99.8 OTHER EXTERNAL CAUSE STATUS 09/25/2017 ROCHELLE CANNON MD, Ot M79.604 PAIN IN RIGHT LEG 09/25/2017 ROCHELLE CANNON MD, Ot M25.461 EFFUSION, RIGHT KNEE 09/25/2017 ROCHELLE CANNON MD, Ot S83.241A OTH TEAR OF MEDIAL MENISCUS, CURRENT INJ 09/25/2017 CARMEN GIBBS MD Ot R04 .2 HEMOPTYSIS 09/25/2017 CARMEN GIBBS MD Ot R22 .1 LOCALIZED SWELLING, MASS AND LUMP, NECK 09/25/2017 CARMEN GIBBS MD Ot R22 .1 LOCALIZED SWELLING, MASS AND LUMP, NECK 10/01/2017 Ot 620.2 OVAR SUNITA CYST NEC/NOS 10/01/2017 Ot 789.00 ABD OMINAL PAIN, UNSPECIFIED SITE 10/01/2017 Ot V72.63 PRE -PROCEDURAL LABORATORY EXAMINATION 10/01/2017 Ot V74.8 SCRE EN-BACTERIAL DIS NEC 10/01/2017 LUIS MORENO MD Ot 278. 00 OBESITY, NOS 10/01/2017 LUIS MORENO MD Ot 311 DEPRESSIVE DISORDER NEC 10/01/2017 LUIS MORENO MD Ot 493. 00 EXTRINSIC ASTHMA, NOS 10/01/2017 LUIS MORENO MD Ot 724. 79 DISORDER OF COCCYX NEC 10/01/2017 LUIS MORENO MD Ot V58. 69 OTH MED,LT,CURRENT USE 10/01/2017 LUIS MORENO MD Ot V85. 41 BODY MASS INDEX 40.0-44.9, ADULT 10/01/2017 RONY ALDANA APRN Ot 571.8 CHRONIC LIVER DIS NEC 10/01/2017 TATA TOMAS MD Ot 724. 70 DISORDER OF COCCYX NOS 10/01/2017 TATA TOMAS MD Ot V72. 63 PRE-PROCEDURAL LABORATORY EXAMINATION 10/01/2017 ATTA TOMAS MD, Ot V74. 8 SCREEN-BACTERIAL DIS NEC 10/01/2017 LAZARO HURTADO SENIOR RELIABILITY ENGINEER Ot 278.01 MORBID OBESITY 10/01/2017 LAZARO HURTADO SENIOR RELIABILITY ENGINEER Ot 401.9 HYPERTENSION NOS 10/01/2017 SHARONLAZARO HAHN SENIOR RELIABILITY ENGINEER Ot 786.09 RESPIRATORY ABNORM NEC 10/01/2017 LAZARO HURTADO SENIOR RELIABILITY ENGINEER Ot V85.42 BODY MASS INDEX 45.0-49.9, ADULT 10/01/2017 DEE BAH MD Ot 723.0 CERVICAL SPINAL STENOSIS 10/01/2017 DEE BAH MD Ot 724.0 2 SPINAL STENOSIS, LUMBAR REG, W/OUT NEURO 10/01/2017 ROCHELLE CANNON MD, Ot M77.8 OTHER ENTHESOPATHIES, NOT ELSEWHERE CLAS 10/01/2017 ROCHELLE CANNON MD, Ot M23.8X1 OTHER INTERNAL DERANGEMENTS OF RIGHT KNE 10/01/2017 ROCHELLE CANNON MD, Ot Z01.818 ENCOUNTER FOR OTHER PREPROCEDURAL EXAMIN 10/01/2017 ROCHELLE CANNON MD, Ot Z11.2 ENCOUNTER FOR SCREENING FOR OTHER BACTER 10/01/2017 CARMEN GIBBS MD Ot E78 .2 MIXED HYPERLIPIDEMIA 10/01/2017 ROCHELLE CANNON MD, Ot S83.241S OTH TEAR OF MEDIAL MENISCUS, CURRENT INJ 10/01/2017 ROCHELLE CANNON MD, Ot X58.XXXS EXPOSURE TO OTHER SPECIFIED FACTORS, SEQ 10/01/2017 ROCHELLE CANNON MD, Ot Y99.8 OTHER EXTERNAL CAUSE STATUS 10/01/2017 ROCHELLE CANNON MD, Ot M79.604 PAIN IN RIGHT LEG 10/01/2017 ROCHELLE CANNON MD, Ot M25.461 EFFUSION, RIGHT KNEE 10/01/2017 ROCHELLE CANNON MD, Ot S83.241A OTH TEAR OF MEDIAL MENISCUS, CURRENT INJ 10/01/2017 CARMEN GIBBS MD Ot R04 .2 HEMOPTYSIS 10/01/2017 CARMEN GIBBS MD, Ot R22 .1 LOCALIZED SWELLING, MASS AND LUMP, NECK 10/01/2017 SAI PAR[place], CARMEN Christie Ot R22 .1 LOCALIZED SWELLING, MASS AND LUMP, NECK 10/02/2017 YUNIOR LYLES MD, Ot K76.0 FATTY (CHANGE OF) LIVER, NOT ELSEWHERE C 10/02/2017 YUNIOR LYLES MD, Ot Z90.49 ACQUIRED ABSENCE OF OTHER SPECIFIED PART 10/02/2017 YUNIOR LYLES MD, Ot Z90.5 ACQUIRED ABSENCE OF KIDNEY 10/22/2017 YUNIOR LYLES MD, Ot K76.0 FATTY (CHANGE OF) LIVER, NOT ELSEWHERE C 10/22/2017 YUNIOR LYLES MD, Ot Z90.49 ACQUIRED ABSENCE OF OTHER SPECIFIED PART 10/22/2017 YUNIOR LYLES MD, Ot Z90.5 ACQUIRED ABSENCE OF KIDNEY 10/22/2017 YUKI MARCH MD, Ot F32.9 MAJOR DEPRESSIVE DISORDER, SINGLE EPISOD 10/22/2017 YUKI MARCH MD, Ot F41.9 ANXIETY DISORDER, UNSPECIFIED 10/22/2017 YUKI MARCH MD, Ot G25.81 RESTLESS LEGS SYNDROME 10/22/2017 YUKI MARCH MD, Ot G43.909 MIGRAINE, UNSP, NOT INTRACTABLE, WITHOUT 10/22/2017 YUKI MARCH MD, Ot J45.909 UNSPECIFIED ASTHMA, UNCOMPLICATED 10/22/2017 YUKI MARCH MD, Ot M54.6 PAIN IN THORACIC SPINE 10/22/2017 YUKI MARCH MD Ot 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 10/22/2017 YUKI MARCH MD, Ot Z85.528 PERSONAL HISTORY OF OTHER MALIGNANT NEOP 10/22/2017 YUKI MARCH MD Ot Z86.010 PERSONAL HISTORY OF COLONIC POLYPS 10/22/2017 YUKI MARCH MD Ot Z87.19 PERSONAL HISTORY OF OTHER DISEASES OF TH 10/22/2017 YUKI MARCH MD, Ot Z87.440 PERSONAL HISTORY OF URINARY (TRACT) INFE 10/22/2017 YUKI MARCH MD Ot Z88.0 ALLERGY STATUS TO PENICILLIN 10/22/2017 YUKI MARCH MD Ot Z88.5 ALLERGY STATUS TO NARCOTIC AGENT STATUS 10/22/2017 YUKI MARCH MD, Ot Z90.49 ACQUIRED ABSENCE OF OTHER SPECIFIED PART 10/22/2017 YUKI MARCH MD Ot Z90.5 ACQUIRED ABSENCE OF KIDNEY 10/22/2017 YUKI MARCH MD Ot Z90.710 ACQUIRED ABSENCE OF BOTH CERVIX AND UTER 10/22/2017 YUKI MARCH MD Ot Z90.89 ACQUIRED ABSENCE OF OTHER ORGANS 10/25/2017 YUNIOR LYLES MD Ot K76.0 FATTY (CHANGE OF) LIVER, NOT ELSEWHERE C 10/25/2017 YUNIOR LYLES MD, Ot Z90.49 ACQUIRED ABSENCE OF OTHER SPECIFIED PART 10/25/2017 YUNIOR LYLES MD, Ot Z90.5 ACQUIRED ABSENCE OF KIDNEY 11/11/2017 MAKAYLA HAWKINS MD Ot F32. 9 MAJOR DEPRESSIVE DISORDER, SINGLE EPISOD 11/11/2017 MAKAYLA HAWKINS MD Ot F41. 9 ANXIETY DISORDER, UNSPECIFIED 11/11/2017 MAKAYLA HAWKINS MD Ot G25. 81 RESTLESS LEGS SYNDROME 11/11/2017 MAKAYLA HAWKINS MD Ot G43.909 MIGRAINE, UNSP, NOT INTRACTABLE, WITHOUT 11/11/2017 MAKAYLA HAWKINS MD Ot J45.909 UNSPECIFIED ASTHMA, UNCOMPLICATED 11/11/2017 MAKAYLA HAWKINS MD Ot R10. 12 LEFT UPPER QUADRANT PAIN 11/11/2017 MAKAYLA HAWKINS MD Ot R18. 8 OTHER ASCITES 11/11/2017 MAKAYLA HAWKINS MD Ot Z79. 51 [facility] (CURRENT) USE OF INHALED STERO 11/11/2017 MAKAYLA HAWKINS MD Ot Z79. 52 PATENT LAW SPECIALIST (CURRENT) USE OF SYSTEMIC STER 11/11/2017 MAKAYLA HAWKINS MD Ot Z82. 49 FAMILY HX OF ISCHEM HEART DIS AND OTH DI 11/11/2017 MAKAYLA HAWKINS MD Ot Z86.010 PERSONAL HISTORY OF COLONIC POLYPS 11/11/2017 MAKAYLA HAWKINS MD Ot Z86. 19 PERSONAL HISTORY OF OTHER INFECTIOUS AND 11/11/2017 MAKAYLA HAWKINS MD Ot Z87. 19 PERSONAL HISTORY OF OTHER DISEASES OF TH 11/11/2017 MAKAYLA HAWKINS MD Ot Z87.440 PERSONAL HISTORY OF URINARY (TRACT) INFE 11/11/2017 MAKAYLA HAWKINS MD Ot Z87.891 PERSONAL HISTORY OF NICOTINE DEPENDENCE 11/11/2017 MAKAYLA HAWKINS MD Ot Z88. 0 ALLERGY STATUS TO PENICILLIN 11/11/2017 MAKAYLA HAWKINS MD Ot Z88. 8 ALLERGY STATUS TO OTH DRUG/MEDS/BIOL SUB 11/11/2017 MAKAYLA HAWKINS MD Ot Z90. 5 ACQUIRED ABSENCE OF KIDNEY 11/11/2017 MAKAYLA HAWKINS MD Ot Z90.710 ACQUIRED ABSENCE OF BOTH CERVIX AND UTER 11/11/2017 MAKAYLA HAWKINS MD Ot Z90. 89 ACQUIRED ABSENCE OF OTHER ORGANS 11/12/2017 DELMAN DO, LINDSEY B Ot R18.8 OTHER ASCITES 11/13/2017 MAKAYLA HAWKINS MD Ot F32. 9 MAJOR DEPRESSIVE DISORDER, SINGLE EPISOD 11/13/2017 MAKAYLA HAWKINS MD Ot F41. 9 ANXIETY DISORDER, UNSPECIFIED 11/13/2017 MAKAYLA HAWKINS MD Ot G25. 81 RESTLESS LEGS SYNDROME 11/13/2017 MAKAYLA HAWKINS MD Ot G43.909 MIGRAINE, UNSP, NOT INTRACTABLE, WITHOUT 11/13/2017 MAKAYLA HAWKINS MD Ot J45.909 UNSPECIFIED ASTHMA, UNCOMPLICATED 11/13/2017 MAKAYLA HAWKINS MD Ot R10. 12 LEFT UPPER QUADRANT PAIN 11/13/2017 MAKAYLA HAWKINS MD Ot R18. 8 OTHER ASCITES 11/13/2017 MAKAYLA HAWKINS MD Ot Z79. 51 PATENT LAW SPECIALIST (CURRENT) USE OF INHALED STERO 11/13/2017 MAKAYLA HAWKINS MD Ot Z79. 52 PATENT LAW SPECIALIST (CURRENT) USE OF SYSTEMIC STER 11/13/2017 MAKAYLA HAWKINS MD Ot Z82. 49 FAMILY HX OF ISCHEM HEART DIS AND OTH DI 11/13/2017 MAKAYLA HAWKINS MD Ot Z86.010 PERSONAL HISTORY OF COLONIC POLYPS 11/13/2017 MAKAYLA HAWKINS MD Ot Z86. 19 PERSONAL HISTORY OF OTHER INFECTIOUS AND 11/13/2017 MAKAYLA HAWKINS MD Ot Z87. 19 PERSONAL HISTORY OF OTHER DISEASES OF TH 11/13/2017 MAKAYLA HAWKINS MD Ot Z87.440 PERSONAL HISTORY OF URINARY (TRACT) INFE 11/13/2017 MAKAYLA HAWKINS MD Ot Z87.891 PERSONAL HISTORY OF NICOTINE DEPENDENCE 11/13/2017 MAKAYLA HAWKINS MD, Ot Z88. 0 ALLERGY STATUS TO PENICILLIN 11/13/2017 MAKAYLA HAWKINS MD, Ot Z88. 8 ALLERGY STATUS TO OTH DRUG/MEDS/BIOL SUB 11/13/2017 MAKAYLA HAWKINS MD Ot Z90. 5 ACQUIRED ABSENCE OF KIDNEY 11/13/2017 MAKAYLA HAWKINS MD Ot Z90.710 ACQUIRED ABSENCE OF BOTH CERVIX AND UTER 11/13/2017 MAKAYLA HAWKINS MD Ot Z90. 89 ACQUIRED ABSENCE OF OTHER ORGANS 11/14/2017 DELMAN DO, LINDSEY B Ot R18.8 OTHER ASCITES 11/15/2017 DELMAN DO, LINDSEY B Ot R18.8 OTHER ASCITES 11/15/2017 DELMAN DO, LINDSEY B Ot R18.8 OTHER ASCITES 11/26/2017 CARMEN GIBBS MD Ot R91 .1 SOLITARY PULMONARY NODULE 11/26/2017 CARMEN GIBBS MD Ot Z53 .8 PROCEDURE AND TREATMENT NOT CARRIED OUT 11/26/2017 CARMEN GIBBS MD Ot R91 .1 SOLITARY PULMONARY NODULE 11/26/2017 CARMEN GIBBS MD Ot Z53 .8 PROCEDURE AND TREATMENT NOT CARRIED OUT 12/04/2017 YUKI MARCH MD Ot F32.9 MAJOR DEPRESSIVE DISORDER, SINGLE EPISOD 12/04/2017 YUKI MARCH MD, Ot F41.9 ANXIETY DISORDER, UNSPECIFIED 12/04/2017 YUKI MARCH MD Ot G43.909 MIGRAINE, UNSP, NOT INTRACTABLE, WITHOUT 12/04/2017 YUKI MARCH MD Ot J45.909 UNSPECIFIED ASTHMA, UNCOMPLICATED 12/04/2017 YUKI MARCH MD Ot M25.511 PAIN IN RIGHT SHOULDER 12/04/2017 YUKI MARCH MD Ot 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 12/04/2017 YUKI MARCH MD Ot Z85.528 PERSONAL HISTORY OF OTHER MALIGNANT NEOP 12/04/2017 YUKI MARCH MD Ot Z87.19 PERSONAL HISTORY OF OTHER DISEASES OF TH 12/04/2017 YUKI MARCH MD Ot Z90.49 ACQUIRED ABSENCE OF OTHER SPECIFIED PART 12/04/2017 YUKI MARCH MD, Ot Z90.5 ACQUIRED ABSENCE OF KIDNEY 12/04/2017 YUKI MARCH MD Ot Z90.710 ACQUIRED ABSENCE OF BOTH CERVIX AND UTER 12/04/2017 YUKI MARCH MD Ot Z90.89 ACQUIRED ABSENCE OF OTHER ORGANS 12/06/2017 YUKI MARCH MD, Ot F32.9 MAJOR DEPRESSIVE DISORDER, SINGLE EPISOD 12/06/2017 YUKI MARCH MD, Ot F41.9 ANXIETY DISORDER, UNSPECIFIED 12/06/2017 YUKI MARCH MD Ot G43.909 MIGRAINE, UNSP, NOT INTRACTABLE, WITHOUT 12/06/2017 YUKI MARCH MD, Ot J45.909 UNSPECIFIED ASTHMA, UNCOMPLICATED 12/06/2017 YUKI MARCH MD, Ot M25.511 PAIN IN RIGHT SHOULDER 12/06/2017 YUKI MARCH MD, Ot 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 12/06/2017 YUKI MARCH MD, Ot Z85.528 PERSONAL HISTORY OF OTHER MALIGNANT NEOP 12/06/2017 YUKI MARCH MD Ot Z87.19 PERSONAL HISTORY OF OTHER DISEASES OF TH 12/06/2017 YUKI MARCH MD Ot Z90.49 ACQUIRED ABSENCE OF OTHER SPECIFIED PART 12/06/2017 YUKI MARCH MD, Ot Z90.5 ACQUIRED ABSENCE OF KIDNEY 12/06/2017 UYKI MARCH MD Ot Z90.710 ACQUIRED ABSENCE OF BOTH CERVIX AND UTER 12/06/2017 YUKI MARCH MD Ot Z90.89 ACQUIRED ABSENCE OF OTHER ORGANS 12/13/2017 GEORGES FINN APRN Ot A04.72 ENTEROCOLITIS D/T CLOSTRIDIUM DIFFICILE, 12/13/2017 GEORGES FINN APRN Ot F32 .9 MAJOR DEPRESSIVE DISORDER, SINGLE EPISOD 12/13/2017 GEORGES FINN APRN Ot F41 .9 ANXIETY DISORDER, UNSPECIFIED 12/13/2017 GEORGES FINN APRN Ot G25.81 RESTLESS LEGS SYNDROME 12/13/2017 GEORGES FINN APRN Ot G43.909 MIGRAINE, UNSP, NOT INTRACTABLE, WITHOUT 12/13/2017 GEORGES FINN APRN Ot J45.909 UNSPECIFIED ASTHMA, UNCOMPLICATED 12/13/2017 GEORGES FINN APRN Ot K92 .1 MELENA 12/13/2017 GEORGES FINN APRN Ot 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 12/13/2017 GEORGES FINN APRN Ot Z85.528 PERSONAL HISTORY OF OTHER MALIGNANT NEOP 12/13/2017 GEORGES FINN APRN Ot Z87.19 PERSONAL HISTORY OF OTHER DISEASES OF TH 12/13/2017 GEORGES FINN APRN Ot Z88 .0 ALLERGY STATUS TO PENICILLIN 12/13/2017 GEORGES FINN APRN Ot Z88 .6 ALLERGY STATUS TO ANALGESIC AGENT STATUS 12/13/2017 GEORGES FINN APRN Ot Z90.49 ACQUIRED ABSENCE OF OTHER SPECIFIED PART 12/13/2017 GEORGES FINN APRN Ot Z90 .5 ACQUIRED ABSENCE OF KIDNEY 12/13/2017 GEORGES FINN APRN Ot Z90.710 ACQUIRED ABSENCE OF BOTH CERVIX AND UTER 12/13/2017 GEORGES FINN APRN Ot Z90.89 ACQUIRED ABSENCE OF OTHER ORGANS 12/17/2017 GEORGES FINN APRN Ot A04.72 ENTEROCOLITIS D/T CLOSTRIDIUM DIFFICILE, 12/17/2017 GEORGES FINN APRN Ot F32 .9 MAJOR DEPRESSIVE DISORDER, SINGLE EPISOD 12/17/2017 GEORGES FINN APRN Ot F41 .9 ANXIETY DISORDER, UNSPECIFIED 12/17/2017 GEORGES FINN APRN Ot G25.81 RESTLESS LEGS SYNDROME 12/17/2017 GEORGES FINN APRN Ot G43.909 MIGRAINE, UNSP, NOT INTRACTABLE, WITHOUT 12/17/2017 GEORGES FINN APRN Ot J45.909 UNSPECIFIED ASTHMA, UNCOMPLICATED 12/17/2017 GEORGES FINN APRN Ot K92 .1 MELENA 12/17/2017 GEORGES FINN APRN Ot 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 12/17/2017 GEORGES FINN APRN Ot Z85.528 PERSONAL HISTORY OF OTHER MALIGNANT NEOP 12/17/2017 GEORGES FINN APRN Ot Z87.19 PERSONAL HISTORY OF OTHER DISEASES OF TH 12/17/2017 GEORGES FINN APRN Ot Z88 .0 ALLERGY STATUS TO PENICILLIN 12/17/2017 GEORGES FINN APRN Ot Z88 .6 ALLERGY STATUS TO ANALGESIC AGENT STATUS 12/17/2017 GEORGES FINN ASSURANCE ENGINEER Ot Z90.49 ACQUIRED ABSENCE OF OTHER SPECIFIED PART 12/17/2017 GEORGES FINN ASSURANCE ENGINEER Ot Z90 .5 ACQUIRED ABSENCE OF KIDNEY 12/17/2017 GEORGES FINN ASSURANCE ENGINEER Ot Z90.710 ACQUIRED ABSENCE OF BOTH CERVIX AND UTER 12/17/2017 GEORGES FINN ASSURANCE ENGINEER Ot Z90.89 ACQUIRED ABSENCE OF OTHER ORGANS 12/18/2017 MAKAYLA HAWKINS MD J Ot A04. 72 ENTEROCOLITIS D/T CLOSTRIDIUM DIFFICILE, 12/18/2017 MAKAYLA HAWKINS MD J Ot E86. 0 DEHYDRATION 12/18/2017 MAKAYLA HAWKINS MD J Ot F32. 9 MAJOR DEPRESSIVE DISORDER, SINGLE EPISOD 12/18/2017 MAKAYLA HAWKINS MD Ot F41. 9 ANXIETY DISORDER, UNSPECIFIED 12/18/2017 MAKAYLA HAWKINS MD J Ot G25. 81 RESTLESS LEGS SYNDROME 12/18/2017 MAKAYLA HAWKINS MD J Ot G43.909 MIGRAINE, UNSP, NOT INTRACTABLE, WITHOUT 12/18/2017 BALJINDER HAWKINS MDUS J Ot J45.909 UNSPECIFIED ASTHMA, UNCOMPLICATED 12/18/2017 MAKAYLA HAWKINS MD J Ot R10. 13 EPIGASTRIC PAIN 12/18/2017 MAKAYLA HAWKINS MD Ot R11. 2 NAUSEA WITH VOMITING, UNSPECIFIED 12/18/2017 MAKAYLA HAWKINS MD J Ot R18. 8 OTHER ASCITES 12/18/2017 MAKAYLA HAWKINS MD J Ot Z85.528 PERSONAL HISTORY OF OTHER MALIGNANT NEOP 12/18/2017 MAKAYLA HAWKINS MD J Ot Z88. 0 ALLERGY STATUS TO PENICILLIN 12/18/2017 MAKAYLA HAWKINS MD J Ot Z88. 1 ALLERGY STATUS TO OTHER ANTIBIOTIC AGENT 12/18/2017 MAKAYLA HAWKINS MD Ot Z90. 49 ACQUIRED ABSENCE OF OTHER SPECIFIED PART 12/18/2017 MAKAYLA HAWKINS MD J Ot Z90. 5 ACQUIRED ABSENCE OF KIDNEY 12/18/2017 MAKAYLA HAWKINS MD J Ot Z90.710 ACQUIRED ABSENCE OF BOTH CERVIX AND UTER 12/18/2017 MAKAYLA HAWKINS MD J Ot Z90. 89 ACQUIRED ABSENCE OF OTHER ORGANS 12/19/2017 MAKAYLA HAWKINS MD J Ot A04. 72 ENTEROCOLITIS D/T CLOSTRIDIUM DIFFICILE, 12/19/2017 MAKAYLA HAWKINS MD Ot E86. 0 DEHYDRATION 12/19/2017 MAKAYLA HAWKINS MD Ot F32. 9 MAJOR DEPRESSIVE DISORDER, SINGLE EPISOD 12/19/2017 MAKAYLA HAWKINS MD Ot F41. 9 ANXIETY DISORDER, UNSPECIFIED 12/19/2017 MAKAYLA HAWKINS MD Ot G25. 81 RESTLESS LEGS SYNDROME 12/19/2017 MAKAYLA HAWKINS MD Ot G43.909 MIGRAINE, UNSP, NOT INTRACTABLE, WITHOUT 12/19/2017 MAKAYLA HAWKINS MD Ot J45.909 UNSPECIFIED ASTHMA, UNCOMPLICATED 12/19/2017 MAKAYLA HAWKINS MD Ot R10. 13 EPIGASTRIC PAIN 12/19/2017 MAKAYLA HAWKINS MD Ot R11. 2 NAUSEA WITH VOMITING, UNSPECIFIED 12/19/2017 MAKAYLA HAWKINS MD Ot R18. 8 OTHER ASCITES 12/19/2017 MAKAYLA HAWKINS MD Ot Z85.528 PERSONAL HISTORY OF OTHER MALIGNANT NEOP 12/19/2017 MAKAYLA HAWKINS MD Ot Z88. 0 ALLERGY STATUS TO PENICILLIN 12/19/2017 MAKAYLA HAWKINS MD Ot Z88. 1 ALLERGY STATUS TO OTHER ANTIBIOTIC AGENT 12/19/2017 MAKAYLA HAWKINS MD Ot Z90. 49 ACQUIRED ABSENCE OF OTHER SPECIFIED PART 12/19/2017 MAKAYLA HAWKINS MD Ot Z90. 5 ACQUIRED ABSENCE OF KIDNEY 12/19/2017 MAKAYLA HAWKINS MD Ot Z90.710 ACQUIRED ABSENCE OF BOTH CERVIX AND UTER 12/19/2017 MAKAYLA HAWKINS MD Ot Z90. 89 ACQUIRED ABSENCE OF OTHER ORGANS 12/25/2017 LUIS MORENO MD Ot 278. 00 OBESITY, NOS 12/25/2017 LUIS MORENO MD Ot 311 DEPRESSIVE DISORDER NEC 12/25/2017 LUIS MORENO MD Ot 493. 00 EXTRINSIC ASTHMA, NOS 12/25/2017 LUIS MORENO MD Ot 724. 79 DISORDER OF COCCYX NEC 12/25/2017 LUIS MORENO MD Ot V58. 69 OTH MED,LT,CURRENT USE 12/25/2017 LUIS MORENO MD Ot V85. 41 BODY MASS INDEX 40.0-44.9, ADULT 12/25/2017 KATYA, RONY A ASSURANCE ENGINEER Ot 571.8 CHRONIC LIVER DIS NEC 12/25/2017 TATA TOMAS MD Ot 724. 70 DISORDER OF COCCYX NOS 12/25/2017 TATA TOMAS MD Ot V72. 63 PRE-PROCEDURAL LABORATORY EXAMINATION 12/25/2017 TATA TOMAS MD, Ot V74. 8 SCREEN-BACTERIAL DIS NEC 12/25/2017 BRYANT LAZARO Benji SENIOR RELIABILITY ENGINEER Ot 278.01 MORBID OBESITY 12/25/2017 LAZARO HURTADO SENIOR RELIABILITY ENGINEER Ot 401.9 HYPERTENSION NOS 12/25/2017 LAZARO HURTADO SENIOR RELIABILITY ENGINEER Ot 786.09 RESPIRATORY ABNORM NEC 12/25/2017 LAZAOR HURTADO SENIOR RELIABILITY ENGINEER Ot V85.42 BODY MASS INDEX 45.0-49.9, ADULT 12/25/2017 DEE BAH MD Ot 723.0 CERVICAL SPINAL STENOSIS 12/25/2017 DEE BAH MD Ot 724.0 2 SPINAL STENOSIS, LUMBAR REG, W/OUT NEURO 12/25/2017 ROCHELLE CANNON MD, Ot M77.8 OTHER ENTHESOPATHIES, NOT ELSEWHERE CLAS 12/25/2017 ROCHELLE CANNON MD, Ot M23.8X1 OTHER INTERNAL DERANGEMENTS OF RIGHT KNE 12/25/2017 ROCHELLE CANNON MD, Ot Z01.818 ENCOUNTER FOR OTHER PREPROCEDURAL EXAMIN 12/25/2017 ROCHELLE CANNON MD, Ot Z11.2 ENCOUNTER FOR SCREENING FOR OTHER BACTER 12/25/2017 CARMEN GIBBS MD, Ot E78 .2 MIXED HYPERLIPIDEMIA 12/25/2017 ROCHELLE CANNON MD, Ot S83.241S OTH TEAR OF MEDIAL MENISCUS, CURRENT INJ 12/25/2017 ROCHELLE CANNON MD, Ot X58.XXXS EXPOSURE TO OTHER SPECIFIED FACTORS, SEQ 12/25/2017 ROCHELLE CANNON MD, Ot Y99.8 OTHER EXTERNAL CAUSE STATUS 12/25/2017 ROCHELLE CANNON MD, Ot M79.604 PAIN IN RIGHT LEG 12/25/2017 ROCHELLE CANNON MD, Ot M25.461 EFFUSION, RIGHT KNEE 12/25/2017 ROCHELLE CANNON MD, Ot S83.241A OTH TEAR OF MEDIAL MENISCUS, CURRENT INJ 12/25/2017 CARMEN GIBBS MD, Ot R04 .2 HEMOPTYSIS 12/25/2017 CARMEN GIBBS MD, Ot R22 .1 LOCALIZED SWELLING, MASS AND LUMP, NECK 12/25/2017 CARMEN GIBBS MD, Ot R22 .1 LOCALIZED SWELLING, MASS AND LUMP, NECK 12/25/2017 YUNOIR LYLES MD, Ot K76.0 FATTY (CHANGE OF) LIVER, NOT ELSEWHERE C 12/25/2017 YUNIOR LYLES MD, Ot Z90.49 ACQUIRED ABSENCE OF OTHER SPECIFIED PART 12/25/2017 YUNIOR LYLES MD, Ot Z90.5 ACQUIRED ABSENCE OF KIDNEY 12/25/2017 CARMEN GIBBS MD, Ot R91 .1 SOLITARY PULMONARY NODULE 12/25/2017 CARMEN GIBBS MD, Ot Z53 .8 PROCEDURE AND TREATMENT NOT CARRIED OUT 12/27/2017 CARMEN GIBBS MD, Ot R91 .1 SOLITARY PULMONARY NODULE 12/27/2017 CARMEN GIBBS MD, Ot Z53 .8 PROCEDURE AND TREATMENT NOT CARRIED OUT 12/27/2017 CARMEN GIBBS MD Ot A04.71 ENTEROCOLITIS DUE TO CLOSTRIDIUM DIFFICI 12/27/2017 CARMEN GIBBS MD Ot B95 .2 ENTEROCOCCUS THE CAUSE OF DISEASES CL 12/27/2017 CARMEN GIBBS MD Ot B95 .8 UNSP STAPHYLOCOCCUS THE CAUSE OF DISE 12/27/2017 CARMEN GIBBS MD Ot F43.10 POST-TRAUMATIC STRESS DISORDER, UNSPECIF 12/27/2017 CARMEN GIBBS MD Ot F45 .9 SOMATOFORM DISORDER, UNSPECIFIED 12/27/2017 CARMEN GIBBS MD Ot F63 .3 TRICHOTILLOMANIA 12/27/2017 CARMEN GIBBS MD Ot G25.81 RESTLESS LEGS SYNDROME 12/27/2017 CARMEN GIBBS MD Ot G43.909 MIGRAINE, UNSP, NOT INTRACTABLE, WITHOUT 12/27/2017 CARMEN GIBBS MD Ot I82.612 ACUTE EMBOLISM AND THOMBOS OF SUPERFIC V 12/27/2017 CARMEN GIBBS MD Ot J45.909 UNSPECIFIED ASTHMA, UNCOMPLICATED 12/27/2017 CARMEN GIBBS MD Ot K59.09 OTHER CONSTIPATION 12/27/2017 CARMEN GIBBS MD Ot K86 .1 OTHER CHRONIC PANCREATITIS 12/27/2017 CARMEN GIBBS MD Ot R91 .8 OTHER NONSPECIFIC ABNORMAL FINDING OF [place] 12/27/2017 CARMEN GIBBS MD Ot Z76 .5 MALINGERER [CONSCIOUS SIMULATION] 12/27/2017 CARMEN GIBBS MD, Ot Z85.528 PERSONAL HISTORY OF OTHER MALIGNANT NEOP 12/27/2017 CARMEN GIBBS MD, Ot Z87.891 PERSONAL HISTORY OF NICOTINE DEPENDENCE 12/27/2017 CARMEN GIBBS MD, Ot Z90 .5 ACQUIRED ABSENCE OF KIDNEY 12/30/2017 CARMEN GIBBS MD Ot A04.71 ENTEROCOLITIS DUE TO CLOSTRIDIUM DIFFICI 12/30/2017 CARMEN GIBBS MD Ot B95 .2 ENTEROCOCCUS THE CAUSE OF DISEASES CL 12/30/2017 CARMEN GIBBS MD Ot B95 .8 UNSP STAPHYLOCOCCUS THE CAUSE OF DISE 12/30/2017 CARMEN GIBBS MD Ot F43.10 POST-TRAUMATIC STRESS DISORDER, UNSPECIF 12/30/2017 CARMEN GIBBS MD Ot F45 .9 SOMATOFORM DISORDER, UNSPECIFIED 12/30/2017 CARMEN GIBBS MD Ot F63 .3 TRICHOTILLOMANIA 12/30/2017 CARMEN GIBBS MD Ot G25.81 RESTLESS LEGS SYNDROME 12/30/2017 CARMEN GIBBS MD Ot G43.909 MIGRAINE, UNSP, NOT INTRACTABLE, WITHOUT 12/30/2017 CARMEN GIBBS MD Ot I82.612 ACUTE EMBOLISM AND THOMBOS OF SUPERFIC V 12/30/2017 CARMEN GIBBS MD Ot J45.909 UNSPECIFIED ASTHMA, UNCOMPLICATED 12/30/2017 CARMEN GIBBS MD Ot K59.09 OTHER CONSTIPATION 12/30/2017 CARMEN GIBBS MD Ot K86 .1 OTHER CHRONIC PANCREATITIS 12/30/2017 CARMEN GIBBS MD Ot R11 .2 NAUSEA WITH VOMITING, UNSPECIFIED 12/30/2017 CARMEN GIBBS MD Ot R91 .8 OTHER NONSPECIFIC ABNORMAL FINDING OF [place] 12/30/2017 CARMEN GIBBS MD Ot T82.868A THROMBOSIS DUE TO VASCULAR PROSTH DEV/GR 12/30/2017 CARMEN GIBBS MD Ot Z76 .5 MALINGERER [CONSCIOUS SIMULATION] 12/30/2017 CARMEN GIBBS MD Ot Z85.528 PERSONAL HISTORY OF OTHER MALIGNANT NEOP 12/30/2017 CARMEN GIBBS MD Ot Z87.891 PERSONAL HISTORY OF NICOTINE DEPENDENCE 12/30/2017 CARMEN GIBBS MD Ot Z90 .5 ACQUIRED ABSENCE OF KIDNEY 01/02/2018 CARMEN GIBBS MD Ot A04.71 ENTEROCOLITIS DUE TO CLOSTRIDIUM DIFFICI 01/02/2018 CARMEN GIBBS MD Ot B95 .2 ENTEROCOCCUS THE CAUSE OF DISEASES CL 01/02/2018 CARMEN GIBBS MD Ot B95 .8 UNSP STAPHYLOCOCCUS THE CAUSE OF DISE 01/02/2018 CARMEN GIBBS MD Ot F43.10 POST-TRAUMATIC STRESS DISORDER, UNSPECIF 01/02/2018 CARMEN GIBBS MD Ot F45 .9 SOMATOFORM DISORDER, UNSPECIFIED 01/02/2018 CARMEN GIBBS MD Ot F63 .3 TRICHOTILLOMANIA 01/02/2018 CARMEN GIBBS MD Ot G25.81 RESTLESS LEGS SYNDROME 01/02/2018 CARMEN GIBBS MD Ot G43.909 MIGRAINE, UNSP, NOT INTRACTABLE, WITHOUT 01/02/2018 CARMEN GIBBS MD Ot I82.612 ACUTE EMBOLISM AND THOMBOS OF SUPERFIC V 01/02/2018 CARMEN GIBBS MD Ot J45.909 UNSPECIFIED ASTHMA, UNCOMPLICATED 01/02/2018 CARMEN GIBBS MD Ot K59.09 OTHER CONSTIPATION 01/02/2018 CARMEN GIBBS MD Ot K86 .1 OTHER CHRONIC PANCREATITIS 01/02/2018 CARMEN GIBBS MD Ot R91 .8 OTHER NONSPECIFIC ABNORMAL FINDING OF [place] 01/02/2018 CARMEN GIBBS MD Ot Z76 .5 MALINGERER [CONSCIOUS SIMULATION] 01/02/2018 CARMEN GIBBS MD Ot Z85.528 PERSONAL HISTORY OF OTHER MALIGNANT NEOP 01/02/2018 CARMEN GIBBS MD Ot Z87.891 PERSONAL HISTORY OF NICOTINE DEPENDENCE 01/02/2018 SAI MD, CARMEN N Ot Z90 .5 ACQUIRED ABSENCE OF KIDNEY 01/14/2018 [place], YUNIOR Ot B95.2 ENTEROCOCCUS THE CAUSE OF DISEASES CL 01/14/2018 YUNIOR LYLES MD Ot E86.0 DEHYDRATION 02/04/2018 IZABELA RENDON MD, Ot F32.9 MAJOR DEPRESSIVE DISORDER, SINGLE EPISOD 02/04/2018 IZABELA RENDON MD, Ot F41.9 ANXIETY DISORDER, UNSPECIFIED 02/04/2018 IZABELA RENDON MD, Ot G25.81 RESTLESS LEGS SYNDROME 02/04/2018 IZABELA RENDON MD, Ot G43.909 MIGRAINE, UNSP, NOT INTRACTABLE, WITHOUT 02/04/2018 IZABELA RENDON MD, Ot J45.909 UNSPECIFIED ASTHMA, UNCOMPLICATED 02/04/2018 IZABELA RENDON MD, Ot K85.90 ACUTE PANCREATITIS WITHOUT NECROSIS OR I 02/04/2018 IZABELA RENDON MD Ot R10.32 LEFT LOWER QUADRANT PAIN 02/04/2018 IZABELA RENDON MD Ot R91.8 OTHER NONSPECIFIC ABNORMAL FINDING OF [place] 02/04/2018 IZABELA RENDON MD, Ot Z79.52 [facility] (CURRENT) USE OF SYSTEMIC STER 02/04/2018 IZABELA RENDON MD, Ot Z82.49 FAMILY HX OF ISCHEM HEART DIS AND OTH DI 02/04/2018 IZABELA RENDON MD, Ot Z85.528 PERSONAL HISTORY OF OTHER MALIGNANT NEOP 02/04/2018 IZABELA RENDON MD Ot Z86.010 PERSONAL HISTORY OF COLONIC POLYPS 02/04/2018 IZABELA RENDON MD Ot Z86.19 PERSONAL HISTORY OF OTHER INFECTIOUS AND 02/04/2018 IZABELA RENDON MD, Ot Z87.19 PERSONAL HISTORY OF OTHER DISEASES OF TH 02/04/2018 IZABELA RENDON MD, Ot Z87.440 PERSONAL HISTORY OF URINARY (TRACT) INFE 02/04/2018 IZABELA RENDON MD Ot Z87.891 PERSONAL HISTORY OF NICOTINE DEPENDENCE 02/04/2018 IZABELA RENDON MD Ot Z88.0 ALLERGY STATUS TO PENICILLIN 02/04/2018 IZABELA RENDON MD Ot Z88.8 ALLERGY STATUS TO OTH DRUG/MEDS/BIOL SUB 02/04/2018 IZABELA RENDON MD Ot Z90.5 ACQUIRED ABSENCE OF KIDNEY 02/04/2018 IZABELA RENDON MD Ot Z90.710 ACQUIRED ABSENCE OF BOTH CERVIX AND UTER 02/04/2018 IZABELA RENDON MD Ot Z90.89 ACQUIRED ABSENCE OF OTHER ORGANS 02/04/2018 CARMEN GIBBS MD Ot 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 02/04/2018 CARMEN GIBBS MD Ot Z90 .5 ACQUIRED ABSENCE OF KIDNEY 02/04/2018 CARMEN GIBBS MD Ot Z98.890 OTHER SPECIFIED POSTPROCEDURAL STATES 02/07/2018 CARMEN GIBBS MD Ot 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 02/07/2018 CARMEN GIBBS MD Ot Z90 .5 ACQUIRED ABSENCE OF KIDNEY 02/07/2018 CARMEN GIBBS MD Ot Z98.890 OTHER SPECIFIED POSTPROCEDURAL STATES 02/12/2018 LINDSEY MARROQUIN DO Ot Z01.8 18 ENCOUNTER FOR OTHER PREPROCEDURAL EXAMIN 02/13/2018 CARMEN GIBBS MD Ot R91 .1 SOLITARY PULMONARY NODULE 02/13/2018 CARMEN GIBBS MD Ot Z53 .8 PROCEDURE AND TREATMENT NOT CARRIED OUT 02/13/2018 LINDSEY MARROQUIN DO Ot E66.0 1 MORBID (SEVERE) OBESITY DUE TO EXCESS CA 02/13/2018 LINDSEY MARROQUIN DO Ot J45.9 09 UNSPECIFIED ASTHMA, UNCOMPLICATED 02/13/2018 LINDSEY MARROQUIN DO Ot L90.5 SCAR CONDITIONS AND FIBROSIS OF SKIN 02/13/2018 LINDSEY MARROQUIN DO Ot Z68.4 2 BODY MASS INDEX (BMI) 45.0-49.9, ADULT 02/14/2018 LINDSEY MARROQUIN DO Ot Z01.8 18 ENCOUNTER FOR OTHER PREPROCEDURAL EXAMIN 02/17/2018 LINDSEY MARROQUIN DO Ot Z01.8 18 ENCOUNTER FOR OTHER PREPROCEDURAL EXAMIN 02/19/2018 LINDSEY MARROQUIN DO Ot E66.0 1 MORBID (SEVERE) OBESITY DUE TO EXCESS CA 02/19/2018 CARA GAMING LINDSEY Thu Ot J45.9 09 UNSPECIFIED ASTHMA, UNCOMPLICATED 02/19/2018 LINDSEY MARROQUIN DO Ot L90.5 SCAR CONDITIONS AND FIBROSIS OF SKIN 02/19/2018 CARA GAMING LINDSEY Thu Ot Z68.4 2 BODY MASS INDEX (BMI) 45.0-49.9, ADULT 02/24/2018 DEMETRIO KAY Ot F32.9 MAJOR DEPRESSIVE DISORDER, SINGLE EPISOD 02/24/2018 DEMETRIO KAY Ot F41.9 ANXIETY DISORDER, UNSPECIFIED 02/24/2018 DEMETRIO KAY Ot G25.81 RESTLESS LEGS SYNDROME 02/24/2018 DEMETRIO KAY Ot G43.909 MIGRAINE, UNSP, NOT INTRACTABLE, WITHOUT 02/24/2018 DEMETRIO KAY Ot J45.909 UNSPECIFIED ASTHMA, UNCOMPLICATED 02/24/2018 DEMETRIO KAY Ot K76.89 OTHER SPECIFIED DISEASES OF LIVER 02/24/2018 DEMETRIO KAY Ot R10.32 LEFT LOWER QUADRANT PAIN 02/24/2018 DEMETRIO KAY Ot R91.1 SOLITARY PULMONARY NODULE 02/24/2018 DEMETRIO KAY Ot Z82.49 FAMILY HX OF ISCHEM HEART DIS AND OTH DI 02/24/2018 DEMETRIO KAY Ot Z85.528 PERSONAL HISTORY OF OTHER MALIGNANT NEOP 02/24/2018 DEMETRIO KAY Ot Z86.010 PERSONAL HISTORY OF COLONIC POLYPS 02/24/2018 DEMETRIO KAY Ot Z86.19 PERSONAL HISTORY OF OTHER INFECTIOUS AND 02/24/2018 DEMETRIO KAY Ot Z87.19 PERSONAL HISTORY OF OTHER DISEASES OF TH 02/24/2018 DEMETRIO KAY Ot Z87.440 PERSONAL HISTORY OF URINARY (TRACT) INFE 02/24/2018 DEMETRIO KAY Ot Z88.0 ALLERGY STATUS TO PENICILLIN 02/24/2018 DEMETRIO KAY Ot Z88.5 ALLERGY STATUS TO NARCOTIC AGENT STATUS 02/24/2018 DEMETRIO KAY Ot Z88.8 ALLERGY STATUS TO OTH DRUG/MEDS/BIOL SUB 02/24/2018 DEMETRIO KAY Ot Z90.5 ACQUIRED ABSENCE OF KIDNEY 02/24/2018 DEMETRIO KAY Ot Z90.710 ACQUIRED ABSENCE OF BOTH CERVIX AND UTER 02/24/2018 DEMETRIO KAY Ot Z90.89 ACQUIRED ABSENCE OF OTHER ORGANS 02/24/2018 DEMETRIO KAY Ot Z98.890 OTHER SPECIFIED POSTPROCEDURAL STATES 02/26/2018 DEMETRIO KAY Ot F32.9 MAJOR DEPRESSIVE DISORDER, SINGLE EPISOD 02/26/2018 DEMETRIO KAY Ot F41.9 ANXIETY DISORDER, UNSPECIFIED 02/26/2018 DEMETRIO KAY Ot G25.81 RESTLESS LEGS SYNDROME 02/26/2018 DEMETRIO KAY Ot G43.909 MIGRAINE, UNSP, NOT INTRACTABLE, WITHOUT 02/26/2018 DEMETIRO KAY Ot J45.909 UNSPECIFIED ASTHMA, UNCOMPLICATED 02/26/2018 DEMETRIO KAY Ot K76.89 OTHER SPECIFIED DISEASES OF LIVER 02/26/2018 DEMETRIO KAY Ot R10.32 LEFT LOWER QUADRANT PAIN 02/26/2018 DEMETRIO KAY Ot R91.1 SOLITARY PULMONARY NODULE 02/26/2018 DEMETRIO KAY Ot Z82.49 FAMILY HX OF ISCHEM HEART DIS AND OTH DI 02/26/2018 DEMETRIO KAY Ot Z85.528 PERSONAL HISTORY OF OTHER MALIGNANT NEOP 02/26/2018 DEMETRIO KAY Ot Z86.010 PERSONAL HISTORY OF COLONIC POLYPS 02/26/2018 DEMETRIO KAY Ot Z86.19 PERSONAL HISTORY OF OTHER INFECTIOUS AND 02/26/2018 DEMETRIO KAY Ot Z87.19 PERSONAL HISTORY OF OTHER DISEASES OF TH 02/26/2018 DEMETRIO KAY Ot Z87.440 PERSONAL HISTORY OF URINARY (TRACT) INFE 02/26/2018 DEMETRIO KAY Ot Z88.0 ALLERGY STATUS TO PENICILLIN 02/26/2018 DEMETRIO KAY Ot Z88.5 ALLERGY STATUS TO NARCOTIC AGENT STATUS 02/26/2018 DEMETRIO KAY Ot Z88.8 ALLERGY STATUS TO OTH DRUG/MEDS/BIOL SUB 02/26/2018 DEMETRIO KAY Ot Z90.5 ACQUIRED ABSENCE OF KIDNEY 02/26/2018 DEMETRIO KAY Ot Z90.710 ACQUIRED ABSENCE OF BOTH CERVIX AND UTER 02/26/2018 DEMETRIO KAY Ot Z90.89 ACQUIRED ABSENCE OF OTHER ORGANS 02/26/2018 BERNOT, DEMETRIO Ot Z98.890 OTHER SPECIFIED POSTPROCEDURAL STATES 03/01/2018 MAKAYLA HAWKINS MD Ot F17.210 NICOTINE DEPENDENCE, CIGARETTES, UNCOMPL 03/01/2018 MAKAYLA HAWKINS MD Ot F32. 9 MAJOR DEPRESSIVE DISORDER, SINGLE EPISOD 03/01/2018 MAKAYLA HAWKINS MD Ot F41. 9 ANXIETY DISORDER, UNSPECIFIED 03/01/2018 MAKAYLA HAWKINS MD Ot G25. 81 RESTLESS LEGS SYNDROME 03/01/2018 MAKAYLA HAWKINS MD Ot G43.909 MIGRAINE, UNSP, NOT INTRACTABLE, WITHOUT 03/01/2018 MAKAYLA HAWKINS MD Ot G89. 18 OTHER ACUTE POSTPROCEDURAL PAIN 03/01/2018 MAKAYLA HAWKINS MD Ot J45.909 UNSPECIFIED ASTHMA, UNCOMPLICATED 03/01/2018 MAKAYLA HAWKINS MD Ot Z79. 52 [facility]FP (CURRENT) USE OF SYSTEMIC STER 03/01/2018 MAKAYLA HAWKINS MD Ot Z82. 49 FAMILY HX OF ISCHEM HEART DIS AND OTH DI 03/01/2018 MAKAYLA HAWKINS MD Ot Z85.528 PERSONAL HISTORY OF OTHER MALIGNANT NEOP 03/01/2018 MAKAYLA HAWKINS MD Ot Z86.010 PERSONAL HISTORY OF COLONIC POLYPS 03/01/2018 MAKAYLA HAWKINS MD Ot Z86. 19 PERSONAL HISTORY OF OTHER INFECTIOUS AND 03/01/2018 MAKAYLA HAWKINS MD Ot Z87. 19 PERSONAL HISTORY OF OTHER DISEASES OF TH 03/01/2018 MAKAYLA HAWKINS MD Ot Z87.440 PERSONAL HISTORY OF URINARY (TRACT) INFE 03/01/2018 MAKAYLA HAWKINS MD Ot Z90. 5 ACQUIRED ABSENCE OF KIDNEY 03/01/2018 MAKAYLA HAWKINS MD Ot Z90.710 ACQUIRED ABSENCE OF BOTH CERVIX AND UTER 03/01/2018 MAKAYLA HAWKINS MD Ot Z90. 89 ACQUIRED ABSENCE OF OTHER ORGANS 03/01/2018 MAKAYLA HAWKINS MD Ot Z98.890 OTHER SPECIFIED POSTPROCEDURAL STATES 03/02/2018 MAKAYLA HAWKINS MD Ot F32. 9 MAJOR DEPRESSIVE DISORDER, SINGLE EPISOD 03/02/2018 MAKAYLA HAWKINS MD Ot F41. 9 ANXIETY DISORDER, UNSPECIFIED 03/02/2018 MAKAYLA HAWKINS MD Ot G25. 81 RESTLESS LEGS SYNDROME 03/02/2018 MAKAYLA HAWKINS MD Ot G43.909 MIGRAINE, UNSP, NOT INTRACTABLE, WITHOUT 03/02/2018 MAKAYLA HAWKINS MD Ot G89. 18 OTHER ACUTE POSTPROCEDURAL PAIN 03/02/2018 MAKAYLA HAWKINS MD, Ot J45.909 UNSPECIFIED ASTHMA, UNCOMPLICATED 03/02/2018 MAKAYLA HAWKINS MD Ot R10. 32 LEFT LOWER QUADRANT PAIN 03/02/2018 MAKAYLA HAWKINS MD Ot Z79. 52 PATENT LAW SPECIALIST (CURRENT) USE OF SYSTEMIC STER 03/02/2018 MAKAYLA HAWKINS MD Ot Z82. 49 FAMILY HX OF ISCHEM HEART DIS AND OTH DI 03/02/2018 MAKAYLA HAWKINS MD Ot Z85.528 PERSONAL HISTORY OF OTHER MALIGNANT NEOP 03/02/2018 MAKAYLA HAWKINS MD Ot Z86.010 PERSONAL HISTORY OF COLONIC POLYPS 03/02/2018 MAKAYLA HAWKINS MD Ot Z86. 19 PERSONAL HISTORY OF OTHER INFECTIOUS AND 03/02/2018 MAKAYLA HAWKINS MD Ot Z87. 19 PERSONAL HISTORY OF OTHER DISEASES OF TH 03/02/2018 MAKAYLA HAWKINS MD Ot Z87.440 PERSONAL HISTORY OF URINARY (TRACT) INFE 03/02/2018 MAKAYLA HAWKINS MD Ot Z87.448 PERSONAL HISTORY OF OTHER DISEASES OF UR 03/02/2018 MAKAYLA HAWKINS MD Ot Z88. 0 ALLERGY STATUS TO PENICILLIN 03/02/2018 MAKAYLA HAWKINS MD Ot Z88. 8 ALLERGY STATUS TO OT DRUG/MEDS/BIOL SUB 03/02/2018 MAKAYLA HAWKINS MD Ot Z90. 5 ACQUIRED ABSENCE OF KIDNEY 03/02/2018 MAKAYLA HAWKINS MD Ot Z90.710 ACQUIRED ABSENCE OF BOTH CERVIX AND UTER 03/02/2018 MAKAYLA HAWKINS MD Ot Z90. 89 ACQUIRED ABSENCE OF OTHER ORGANS 03/02/2018 MAKAYLA HAWKINS MD Ot Z98.890 OTHER SPECIFIED POSTPROCEDURAL STATES 03/03/2018 KINSEY BOWENS APRN Ot L53.9 ERYTHEMATOUS CONDITION, UNSPECIFIED 03/03/2018 KINSEY BOWENS APRN Ot M79.89 OTHER SPECIFIED SOFT TISSUE DISORDERS 03/03/2018 KINSEY BOWENS APRN Ot W20.8XXA OTH CAUSE OF STRIKE BY THROWN, PROJECTED 03/04/2018 MAKAYLA HAWKINS MD Ot F17.210 NICOTINE DEPENDENCE, CIGARETTES, UNCOMPL 03/04/2018 MAKAYLA HAWKINS MD Ot F32. 9 MAJOR DEPRESSIVE DISORDER, SINGLE EPISOD 03/04/2018 MAKAYLA HAWKINS MD Ot F41. 9 ANXIETY DISORDER, UNSPECIFIED 03/04/2018 MAKAYLA HAWKINS MD Ot G25. 81 RESTLESS LEGS SYNDROME 03/04/2018 MAKAYLA HAWKINS MD Ot G43.909 MIGRAINE, UNSP, NOT INTRACTABLE, WITHOUT 03/04/2018 MAKAYLA HAWKINS MD Ot G89. 18 OTHER ACUTE POSTPROCEDURAL PAIN 03/04/2018 MAKAYLA HAWKINS MD Ot J45.909 UNSPECIFIED ASTHMA, UNCOMPLICATED 03/04/2018 MAKAYLA HAWKINS MD Ot Z79. 52 [facility]FP (CURRENT) USE OF SYSTEMIC STER 03/04/2018 MAKAYLA HAWKINS MD Ot Z82. 49 FAMILY HX OF ISCHEM HEART DIS AND OTH DI 03/04/2018 MAKAYLA HAWKINS MD Ot Z85.528 PERSONAL HISTORY OF OTHER MALIGNANT NEOP 03/04/2018 MAKAYLA HAWKINS MD Ot Z86.010 PERSONAL HISTORY OF COLONIC POLYPS 03/04/2018 MAKAYLA HAWKINS MD Ot Z86. 19 PERSONAL HISTORY OF OTHER INFECTIOUS AND 03/04/2018 MAKAYLA HAWKINS MD Ot Z87. 19 PERSONAL HISTORY OF OTHER DISEASES OF TH 03/04/2018 MAKAYLA HAWKINS MD Ot Z87.440 PERSONAL HISTORY OF URINARY (TRACT) INFE 03/04/2018 MAKAYLA HAWKINS MD Ot Z90. 5 ACQUIRED ABSENCE OF KIDNEY 03/04/2018 MAKAYLA HAWKINS MD Ot Z90.710 ACQUIRED ABSENCE OF BOTH CERVIX AND UTER 03/04/2018 MAKAYLA HAWKINS MD Ot Z90. 89 ACQUIRED ABSENCE OF OTHER ORGANS 03/04/2018 MAKAYLA HAWKINS MD Ot Z98.890 OTHER SPECIFIED POSTPROCEDURAL STATES 03/04/2018 MAKAYLA HAWKINS MD Ot F32. 9 MAJOR DEPRESSIVE DISORDER, SINGLE EPISOD 03/04/2018 MAKAYLA HAWKINS MD Ot F41. 9 ANXIETY DISORDER, UNSPECIFIED 03/04/2018 MAKAYLA HAWKINS MD Ot G25. 81 RESTLESS LEGS SYNDROME 03/04/2018 MAKAYLA HAWKINS MD Ot G43.909 MIGRAINE, UNSP, NOT INTRACTABLE, WITHOUT 03/04/2018 MAKAYLA HAWKINS MD Ot G89. 18 OTHER ACUTE POSTPROCEDURAL PAIN 03/04/2018 MAKAYLA HAWKINS MD Ot J45.909 UNSPECIFIED ASTHMA, UNCOMPLICATED 03/04/2018 MAKAYLA HAWKINS MD Ot R10. 32 LEFT LOWER QUADRANT PAIN 03/04/2018 MAKAYLA HAWKINS MD Ot Z79. 52 MCFP (CURRENT) USE OF SYSTEMIC STER 03/04/2018 MAKAYLA HAWKINS MD Ot Z82. 49 FAMILY HX OF ISCHEM HEART DIS AND OTH DI 03/04/2018 MAKAYLA HAWKINS MD Ot Z85.528 PERSONAL HISTORY OF OTHER MALIGNANT NEOP 03/04/2018 MAKAYLA HAWKINS MD Ot Z86.010 PERSONAL HISTORY OF COLONIC POLYPS 03/04/2018 MAKAYLA HAWKINS MD Ot Z86. 19 PERSONAL HISTORY OF OTHER INFECTIOUS AND 03/04/2018 MAKAYLA HAWKINS MD Ot Z87. 19 PERSONAL HISTORY OF OTHER DISEASES OF TH 03/04/2018 MAKAYLA HAWKINS MD Ot Z87.440 PERSONAL HISTORY OF URINARY (TRACT) INFE 03/04/2018 MAKAYLA HAWKINS MD Ot Z87.448 PERSONAL HISTORY OF OTHER DISEASES OF UR 03/04/2018 MAKAYLA HAWKINS MD Ot Z88. 0 ALLERGY STATUS TO PENICILLIN 03/04/2018 MAKAYLA HAWKINS MD Ot Z88. 8 ALLERGY STATUS TO OT DRUG/MEDS/BIOL SUB 03/04/2018 MAKAYLA HAWKINS MD Ot Z90. 5 ACQUIRED ABSENCE OF KIDNEY 03/04/2018 MAKAYLA HAWKINS MD Ot Z90.710 ACQUIRED ABSENCE OF BOTH CERVIX AND UTER 03/04/2018 MAKAYLA HAWKINS MD Ot Z90. 89 ACQUIRED ABSENCE OF OTHER ORGANS 03/04/2018 MAKAYLA HAWKINS MD Ot Z98.890 OTHER SPECIFIED POSTPROCEDURAL STATES 03/13/2018 [place], CARMEN Christie Ot M79.622 PAIN IN LEFT UPPER ARM 03/20/2018 KWAN, KINSEY J ASSURANCE ENGINEER Ot L53.9 ERYTHEMATOUS CONDITION, UNSPECIFIED 03/20/2018 KINSEY BOWENS ASSURANCE ENGINEER Ot M79.89 OTHER SPECIFIED SOFT TISSUE DISORDERS 03/20/2018 KINSEY BOWENS ASSURANCE ENGINEER Ot W20.8XXA OTH CAUSE OF STRIKE BY THROWN, PROJECTED 2018 KINSEY BOWENS ASSURANCE ENGINEER Ot L53.9 ERYTHEMATOUS CONDITION, UNSPECIFIED 2018 KINSEY BOWENS ASSURANCE ENGINEER Ot M79.89 OTHER SPECIFIED SOFT TISSUE DISORDERS 2018 KINSEY BOWENS ASSURANCE ENGINEER Ot W20.8XXA OTH CAUSE OF STRIKE BY THROWN, PROJECTED 04/01/2018 [place], CARMEN Christie Ot M79.622 PAIN IN LEFT UPPER ARM 04/07/2018 [place], CARMEN Christie Ot M79.622 PAIN IN LEFT UPPER ARM 04/29/2018 GEORGES FINN APRN Ot F32 .9 MAJOR DEPRESSIVE DISORDER, SINGLE EPISOD 04/29/2018 GEORGES FINN APRN Ot F41 .9 ANXIETY DISORDER, UNSPECIFIED 04/29/2018 GEORGES FINN APRN Ot G25.81 RESTLESS LEGS SYNDROME 04/29/2018 GEORGES FINN APRN Ot G44.89 OTHER HEADACHE SYNDROME 04/29/2018 GEORGES FINN APRN Ot J45.909 UNSPECIFIED ASTHMA, UNCOMPLICATED 04/29/2018 GEORGES FINN APRN Ot R07.89 OTHER CHEST PAIN 04/29/2018 GEORGES FINN APRN Ot R10.12 LEFT UPPER QUADRANT PAIN 04/29/2018 GEORGES FINN APRN Ot R51 HEADACHE 04/29/2018 GEORGES FINN APRN Ot Z79.51 MCFP (CURRENT) USE OF INHALED STERO 04/29/2018 GEORGES FINN APRN Ot Z82.49 FAMILY HX OF ISCHEM HEART DIS AND OTH DI 04/29/2018 GEORGES FINN APRN Ot Z85.528 PERSONAL HISTORY OF OTHER MALIGNANT NEOP 04/29/2018 GEORGES FINN APRN Ot Z86.010 PERSONAL HISTORY OF COLONIC POLYPS 04/29/2018 GEORGES FINN APRN Ot Z87.19 PERSONAL HISTORY OF OTHER DISEASES OF TH 04/29/2018 GEORGES FINN APRN Ot Z87.440 PERSONAL HISTORY OF URINARY (TRACT) INFE 04/29/2018 GEORGES FINN APRN Ot Z87.891 PERSONAL HISTORY OF NICOTINE DEPENDENCE 04/29/2018 GEORGES FINN APRN Ot Z88 .0 ALLERGY STATUS TO PENICILLIN 04/29/2018 GEORGES FINN APRN Ot Z88 .8 ALLERGY STATUS TO OTH DRUG/MEDS/BIOL SUB 04/29/2018 GEORGES FINN APRN Ot Z90 .5 ACQUIRED ABSENCE OF KIDNEY 04/29/2018 GEORGES FINN APRN Ot Z90.710 ACQUIRED ABSENCE OF BOTH CERVIX AND UTER 04/29/2018 GEORGES FINN APRN Ot Z90.89 ACQUIRED ABSENCE OF OTHER ORGANS 04/30/2018 GEORGES FINN APRN Ot F32 .9 MAJOR DEPRESSIVE DISORDER, SINGLE EPISOD 04/30/2018 GEORGES FINN APRN Ot F41 .9 ANXIETY DISORDER, UNSPECIFIED 04/30/2018 GEORGES FINN APRN Ot G25.81 RESTLESS LEGS SYNDROME 04/30/2018 GEORGES FINN APRN Ot G44.89 OTHER HEADACHE SYNDROME 04/30/2018 GEORGES FINN APRN Ot J45.909 UNSPECIFIED ASTHMA, UNCOMPLICATED 04/30/2018 GEORGES FINN APRN Ot R07.89 OTHER CHEST PAIN 04/30/2018 GEORGES FINN APRN Ot R10.12 LEFT UPPER QUADRANT PAIN 04/30/2018 GEORGES FINN APRN Ot R51 HEADACHE 04/30/2018 GEORGES FINN APRN Ot Z79.51 PATENT LAW SPECIALIST (CURRENT) USE OF INHALED STERO 04/30/2018 GEORGES FINN APRN Ot Z82.49 FAMILY HX OF ISCHEM HEART DIS AND OTH DI 04/30/2018 GEORGES FINN APRN Ot Z85.528 PERSONAL HISTORY OF OTHER MALIGNANT NEOP 04/30/2018 GEORGES FINN APRN Ot Z86.010 PERSONAL HISTORY OF COLONIC POLYPS 04/30/2018 GEORGES FINN APRN Ot Z87.19 PERSONAL HISTORY OF OTHER DISEASES OF TH 04/30/2018 GEORGES FINN APRN Ot Z87.440 PERSONAL HISTORY OF URINARY (TRACT) INFE 04/30/2018 GEORGES FINN APRN Ot Z87.891 PERSONAL HISTORY OF NICOTINE DEPENDENCE 04/30/2018 GEORGES FINN APRN Ot Z88 .0 ALLERGY STATUS TO PENICILLIN 04/30/2018 GEORGES FINN APRN Ot Z88 .8 ALLERGY STATUS TO OTH DRUG/MEDS/BIOL SUB 04/30/2018 GEORGES FINN APRN Ot Z90 .5 ACQUIRED ABSENCE OF KIDNEY 04/30/2018 GEORGES FINN APRN Ot Z90.710 ACQUIRED ABSENCE OF BOTH CERVIX AND UTER 04/30/2018 GEORGES FINN APRN Ot Z90.89 ACQUIRED ABSENCE OF OTHER ORGANS 05/25/2018 GEORGES FINN APRN Ot F32 .9 MAJOR DEPRESSIVE DISORDER, SINGLE EPISOD 05/25/2018 GEORGES FINN APRN Ot F41 .9 ANXIETY DISORDER, UNSPECIFIED 05/25/2018 GEORGES FINN APRN Ot G25.81 RESTLESS LEGS SYNDROME 05/25/2018 GEORGES FINN APRN Ot G43.909 MIGRAINE, UNSP, NOT INTRACTABLE, WITHOUT 05/25/2018 GEORGES FINN APRN Ot J45.909 UNSPECIFIED ASTHMA, UNCOMPLICATED 05/25/2018 GEORGES FINN APRN Ot R10.11 RIGHT UPPER QUADRANT PAIN 05/25/2018 GEORGES FINN APRN Ot R10.31 RIGHT LOWER QUADRANT PAIN 05/25/2018 GEORGES FINN APRN Ot Z79.51 MCFP (CURRENT) USE OF INHALED STERO 05/25/2018 GEORGES FINN APRN Ot Z82.49 FAMILY HX OF ISCHEM HEART DIS AND OTH DI 05/25/2018 GEORGES FINN APRN Ot Z85.528 PERSONAL HISTORY OF OTHER MALIGNANT NEOP 05/25/2018 GEORGES FINN APRN Ot Z86.010 PERSONAL HISTORY OF COLONIC POLYPS 05/25/2018 GEORGES FINN APRN Ot Z86.19 PERSONAL HISTORY OF OTHER INFECTIOUS AND 05/25/2018 GEORGES FINN APRN Ot Z87.19 PERSONAL HISTORY OF OTHER DISEASES OF TH 05/25/2018 GEORGES FINN APRN Ot Z87.440 PERSONAL HISTORY OF URINARY (TRACT) INFE 05/25/2018 GEORGES FINN APRN Ot Z88 .0 ALLERGY STATUS TO PENICILLIN 05/25/2018 GEORGES FINN APRN Ot Z88 .8 ALLERGY STATUS TO OTH DRUG/MEDS/BIOL SUB 05/25/2018 GEORGES FINN APRN Ot Z90.49 ACQUIRED ABSENCE OF OTHER SPECIFIED PART 05/25/2018 GEORGES FINN APRN Ot Z90 .5 ACQUIRED ABSENCE OF KIDNEY 05/25/2018 GEORGES FINN APRN Ot Z90.710 ACQUIRED ABSENCE OF BOTH CERVIX AND UTER 05/25/2018 GEORGES FINN APRN Ot Z90.89 ACQUIRED ABSENCE OF OTHER ORGANS 05/25/2018 GEORGES FINN APRN Ot Z98.890 OTHER SPECIFIED POSTPROCEDURAL STATES 05/27/2018 GEORGES FINN APRN Ot F32 .9 MAJOR DEPRESSIVE DISORDER, SINGLE EPISOD 05/27/2018 GEORGES FINN APRN Ot F41 .9 ANXIETY DISORDER, UNSPECIFIED 05/27/2018 GEORGES FINN APRN Ot G25.81 RESTLESS LEGS SYNDROME 05/27/2018 GEORGES FINN APRN Ot G43.909 MIGRAINE, UNSP, NOT INTRACTABLE, WITHOUT 05/27/2018 GEORGES FINN APRN Ot J45.909 UNSPECIFIED ASTHMA, UNCOMPLICATED 05/27/2018 GEORGES FINN APRN Ot R10.11 RIGHT UPPER QUADRANT PAIN 05/27/2018 GEORGES FINN APRN Ot R10.31 RIGHT LOWER QUADRANT PAIN 05/27/2018 GEORGES FINN APRN Ot Z79.51 MCFP (CURRENT) USE OF INHALED STERO 05/27/2018 GEORGES FINN APRN Ot Z82.49 FAMILY HX OF ISCHEM HEART DIS AND OTH DI 05/27/2018 GEORGES FINN APRN Ot Z85.528 PERSONAL HISTORY OF OTHER MALIGNANT NEOP 05/27/2018 GEORGES FINN APRN Ot Z86.010 PERSONAL HISTORY OF COLONIC POLYPS 05/27/2018 GEORGES FINN APRN Ot Z86.19 PERSONAL HISTORY OF OTHER INFECTIOUS AND 05/27/2018 GEORGES FINN APRN Ot Z87.19 PERSONAL HISTORY OF OTHER DISEASES OF TH 05/27/2018 GEORGES FINN APRN Ot Z87.440 PERSONAL HISTORY OF URINARY (TRACT) INFE 05/27/2018 GEORGES FINN APRN Ot Z88 .0 ALLERGY STATUS TO PENICILLIN 05/27/2018 GEORGES FINN APRN Ot Z88 .8 ALLERGY STATUS TO OTH DRUG/MEDS/BIOL SUB 05/27/2018 GEORGES FINN APRN Ot Z90.49 ACQUIRED ABSENCE OF OTHER SPECIFIED PART 05/27/2018 GEORGES FINN APRN Ot Z90 .5 ACQUIRED ABSENCE OF KIDNEY 05/27/2018 GEORGES FINN APRN Ot Z90.710 ACQUIRED ABSENCE OF BOTH CERVIX AND UTER 05/27/2018 GEORGES FINN APRN Ot Z90.89 ACQUIRED ABSENCE OF OTHER ORGANS 05/27/2018 GEORGES FINN APRN Ot Z98.890 OTHER SPECIFIED POSTPROCEDURAL STATES 06/01/2018 SHANKAR DO YAN K Ot E66.9 OBESITY, UNSPECIFIED 06/01/2018 SHANKAR DO YAN K Ot F32.9 MAJOR DEPRESSIVE DISORDER, SINGLE EPISOD 06/01/2018 SHANKAR RONNI GAMINGA K Ot F41.9 ANXIETY DISORDER, UNSPECIFIED 06/01/2018 SHANKAR DO YAN K Ot G25.81 RESTLESS LEGS SYNDROME 06/01/2018 SHANKAR DO YAN K Ot G43.909 MIGRAINE, UNSP, NOT INTRACTABLE, WITHOUT 06/01/2018 SHANKAR DO YAN K Ot J45.909 UNSPECIFIED ASTHMA, UNCOMPLICATED 06/01/2018 SHANKAR DO YAN K Ot K46.9 UNSPECIFIED ABDOMINAL HERNIA WITHOUT OBS 06/01/2018 RONNI CHAPARRO DOA Vickey Ot R11.0 NAUSEA 06/01/2018 SHANKAR DO YAN K Ot Z68.42 BODY MASS INDEX (BMI) 45.0-49.9, ADULT 06/01/2018 RONNI CHAPARRO DOA K Ot 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 06/01/2018 RONNI CHAPARRO DOA Vickey Ot Z82.49 FAMILY HX OF ISCHEM HEART DIS AND OTH DI 06/01/2018 RONNI CHAPARRO DOA K Ot Z85.528 PERSONAL HISTORY OF OTHER MALIGNANT NEOP 06/01/2018 RONNI CHAPARRO DOA Vickey Ot Z86.010 PERSONAL HISTORY OF COLONIC POLYPS 06/01/2018 RONNI CHAPARRO DOA K Ot Z87.19 PERSONAL HISTORY OF OTHER DISEASES OF TH 06/01/2018 RONNI CHAPARRO DOA Vickey Ot Z87.440 PERSONAL HISTORY OF URINARY (TRACT) INFE 06/01/2018 YAN CHAPARRO DO Ot Z88.0 ALLERGY STATUS TO PENICILLIN 06/01/2018 RONNI CHAPARRO DOA Vickey Ot Z88.8 ALLERGY STATUS TO OTH DRUG/MEDS/BIOL SUB 06/01/2018 SHANKAR GAMING YAN Vickey Ot Z90.49 ACQUIRED ABSENCE OF OTHER SPECIFIED PART 06/01/2018 SHANKAR GAMING YAN Vickey Ot Z90.5 ACQUIRED ABSENCE OF KIDNEY 06/01/2018 SHANKAR GAMING YAN Vickey Ot Z90.710 ACQUIRED ABSENCE OF BOTH CERVIX AND UTER 06/01/2018 SHANKAR GAMING YAN Vickey Ot Z90.89 ACQUIRED ABSENCE OF OTHER ORGANS 06/01/2018 SHANKAR GAMING YAN Vickey Ot Z98.890 OTHER SPECIFIED POSTPROCEDURAL STATES 06/03/2018 SHANKAR GAMING YAN Vickey Ot E66.9 OBESITY, UNSPECIFIED 06/03/2018 SHANKAR GAMING YAN K Ot F32.9 MAJOR DEPRESSIVE DISORDER, SINGLE EPISOD 06/03/2018 SHANKAR GAMING YAN K Ot F41.9 ANXIETY DISORDER, UNSPECIFIED 06/03/2018 SHANKAR YAN Vickey Ot G25.81 RESTLESS LEGS SYNDROME 06/03/2018 SHANKAR YAN Vickey Ot G43.909 MIGRAINE, UNSP, NOT INTRACTABLE, WITHOUT 06/03/2018 SHANKAR DO YAN Vickey Ot J45.909 UNSPECIFIED ASTHMA, UNCOMPLICATED 06/03/2018 SHANKAR GAMING YAN Vickey Ot K46.9 UNSPECIFIED ABDOMINAL HERNIA WITHOUT OBS 06/03/2018 SHANKAR GAMING YAN Vickey Ot R11.0 NAUSEA 06/03/2018 SHANKAR GAMING YAN Vickey Ot Z68.42 BODY MASS INDEX (BMI) 45.0-49.9, ADULT 06/03/2018 SHANKAR GAMINGYAN Ot 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 06/03/2018 SHANKAR GAMINGYAN Ot Z82.49 FAMILY HX OF ISCHEM HEART DIS AND OTH DI 06/03/2018 YAN CHAPARRO DO Ot Z85.528 PERSONAL HISTORY OF OTHER MALIGNANT NEOP 06/03/2018 YAN CHAPARRO DO Ot Z86.010 PERSONAL HISTORY OF COLONIC POLYPS 06/03/2018 YAN CHAPARRO DO Ot Z87.19 PERSONAL HISTORY OF OTHER DISEASES OF TH 06/03/2018 YAN CHAPARRO DO Ot Z87.440 PERSONAL HISTORY OF URINARY (TRACT) INFE 06/03/2018 SHANKAR YAN GAMING Ot Z88.0 ALLERGY STATUS TO PENICILLIN 06/03/2018 SHANKAR YAN GAMING Ot Z88.8 ALLERGY STATUS TO OTH DRUG/MEDS/BIOL SUB 06/03/2018 SHANKARYAN Goodwin DO Ot Z90.49 ACQUIRED ABSENCE OF OTHER SPECIFIED PART 06/03/2018 SHANKAR YAN GAMING Ot Z90.5 ACQUIRED ABSENCE OF KIDNEY 06/03/2018 SHANKAR YAN GAMING Ot Z90.710 ACQUIRED ABSENCE OF BOTH CERVIX AND UTER 06/03/2018 SHANKAR YAN GAMING Ot Z90.89 ACQUIRED ABSENCE OF OTHER ORGANS 06/03/2018 SHANKAR YAN GAMING Ot Z98.890 OTHER SPECIFIED POSTPROCEDURAL STATES 06/17/2018 Ot E66.9 OBES ITY, UNSPECIFIED 06/17/2018 Ot F32.9 JENNIFER R DEPRESSIVE DISORDER, SINGLE EPISOD 06/17/2018 Ot F41.9 ANXI ETY DISORDER, UNSPECIFIED 06/17/2018 Ot G25.81 RES TLESS LEGS SYNDROME 06/17/2018 Ot G43.909 VA GRAINE, UNSP, NOT INTRACTABLE, WITHOUT 06/17/2018 Ot J45.909 UN SPECIFIED ASTHMA, UNCOMPLICATED 06/17/2018 Ot M43.6 TORT ICOLLIS 06/17/2018 Ot M54.6 PAIN IN THORACIC SPINE 06/17/2018 Ot Z79.51 MARCO G TERM (CURRENT) USE OF INHALED STERO 06/17/2018 Ot Z79.52 MARCO G TERM (CURRENT) USE OF SYSTEMIC STER 06/17/2018 Ot Z82.49 FAM LATONYA HX OF ISCHEM HEART DIS AND OTH DI 06/17/2018 Ot Z85.528 PE RSONAL HISTORY OF OTHER MALIGNANT NEOP 06/17/2018 Ot Z86.010 PE RSONAL HISTORY OF COLONIC POLYPS 06/17/2018 Ot Z86.19 PER JOSSELYN HISTORY OF OTHER INFECTIOUS AND 06/17/2018 Ot Z87.19 PER JOSSELYN HISTORY OF OTHER DISEASES OF TH 06/17/2018 Ot Z87.440 PE RSONAL HISTORY OF URINARY (TRACT) INFE 06/17/2018 Ot Z87.448 PE RSONAL HISTORY OF OTHER DISEASES OF UR 06/17/2018 Ot Z87.891 PE RSONAL HISTORY OF NICOTINE DEPENDENCE 06/17/2018 Ot Z88.0 FABIOLA RGY STATUS TO PENICILLIN 06/17/2018 Ot Z88.8 FABIOLA RGY STATUS TO OTH DRUG/MEDS/BIOL SUB 06/17/2018 Ot Z90.49 ACQ UIRED ABSENCE OF OTHER SPECIFIED PART 06/17/2018 Ot Z90.5 ACQU IRED ABSENCE OF KIDNEY 06/17/2018 Ot Z90.710 AC QUIRED ABSENCE OF BOTH CERVIX AND UTER 06/17/2018 Ot Z90.89 ACQ UIRED ABSENCE OF OTHER ORGANS 06/19/2018 Ot E66.9 OBES ITY, UNSPECIFIED 06/19/2018 Ot F32.9 JENNIFER R DEPRESSIVE DISORDER, SINGLE EPISOD 06/19/2018 Ot F41.9 ANXI ETY DISORDER, UNSPECIFIED 06/19/2018 Ot G25.81 RES TLESS LEGS SYNDROME 06/19/2018 Ot G43.909 VA GRAINE, UNSP, NOT INTRACTABLE, WITHOUT 06/19/2018 Ot J45.909 UN SPECIFIED ASTHMA, UNCOMPLICATED 06/19/2018 Ot M43.6 TORT ICOLLIS 06/19/2018 Ot M54.6 PAIN IN THORACIC SPINE 06/19/2018 Ot Z79.51 MARCO G TERM (CURRENT) USE OF INHALED STERO 06/19/2018 Ot Z79.52 MARCO G TERM (CURRENT) USE OF SYSTEMIC STER 06/19/2018 Ot Z82.49 FAM LATONYA HX OF ISCHEM HEART DIS AND OTH DI 06/19/2018 Ot Z85.528 PE RSONAL HISTORY OF OTHER MALIGNANT NEOP 06/19/2018 Ot Z86.010 PE RSONAL HISTORY OF COLONIC POLYPS 06/19/2018 Ot Z86.19 PER JOSSELYN HISTORY OF OTHER INFECTIOUS AND 06/19/2018 Ot Z87.19 PER JOSSELYN HISTORY OF OTHER DISEASES OF TH 06/19/2018 Ot Z87.440 PE RSONAL HISTORY OF URINARY (TRACT) INFE 06/19/2018 Ot Z87.448 PE RSONAL HISTORY OF OTHER DISEASES OF UR 06/19/2018 Ot Z87.891 PE RSONAL HISTORY OF NICOTINE DEPENDENCE 06/19/2018 Ot Z88.0 FABIOLA RGY STATUS TO PENICILLIN 06/19/2018 Ot Z88.8 FABIOLA RGY STATUS TO OTH DRUG/MEDS/BIOL SUB 06/19/2018 Ot Z90.49 ACQ UIRED ABSENCE OF OTHER SPECIFIED PART 06/19/2018 Ot Z90.5 ACQU IRED ABSENCE OF KIDNEY 06/19/2018 Ot Z90.710 AC QUIRED ABSENCE OF BOTH CERVIX AND UTER 06/19/2018 Ot Z90.89 ACQ UIRED ABSENCE OF OTHER ORGANS 06/24/2018 MAKAYLA HAWKINS MD Ot E66. 9 OBESITY, UNSPECIFIED 06/24/2018 MAKAYLA HAWKINS MD Ot F17.210 NICOTINE DEPENDENCE, CIGARETTES, UNCOMPL 06/24/2018 MAKAYLA HAWKINS MD Ot F32. 9 MAJOR DEPRESSIVE DISORDER, SINGLE EPISOD 06/24/2018 MAKAYLA HAWKINS MD Ot F41. 9 ANXIETY DISORDER, UNSPECIFIED 06/24/2018 MAKAYLA HAWKINS MD Ot G25. 81 RESTLESS LEGS SYNDROME 06/24/2018 MAKAYLA HAWKINS MD Ot G43.909 MIGRAINE, UNSP, NOT INTRACTABLE, WITHOUT 06/24/2018 MAKAYLA HAWKINS MD Ot G89. 29 OTHER CHRONIC PAIN 06/24/2018 MAKAYLA HAWKINS MD Ot J45.909 UNSPECIFIED ASTHMA, UNCOMPLICATED 06/24/2018 MAKAYLA HAWKINS MD Ot M54. 6 PAIN IN THORACIC SPINE 06/24/2018 MAKAYLA HAWKINS MD Ot N34. 2 OTHER URETHRITIS 06/24/2018 MAKAYLA HAWKINS MD Ot R30. 0 DYSURIA 06/24/2018 MAKAYLA HAWKINS MD Ot Z68. 42 BODY MASS INDEX (BMI) 45.0-49.9, ADULT 06/24/2018 MAKAYLA HAWKINS MD Ot Z79. 51 [facility] (CURRENT) USE OF INHALED STERO 06/24/2018 MAKAYLA HAWKINS MD Ot Z79. 52 [facility] (CURRENT) USE OF SYSTEMIC STER 06/24/2018 MAKAYLA HAWKINS MD Ot Z82. 49 FAMILY HX OF ISCHEM HEART DIS AND OTH DI 06/24/2018 MAKAYLA HAWKINS MD Ot Z85.528 PERSONAL HISTORY OF OTHER MALIGNANT NEOP 06/24/2018 MAKAYLA HAWKINS MD Ot Z86.010 PERSONAL HISTORY OF COLONIC POLYPS 06/24/2018 MAKAYLA HAWKINS MD Ot Z86. 19 PERSONAL HISTORY OF OTHER INFECTIOUS AND 06/24/2018 MAKAYLA HAWKINS MD Ot Z87. 19 PERSONAL HISTORY OF OTHER DISEASES OF TH 06/24/2018 MAKAYLA HAWKINS MD Ot Z87.440 PERSONAL HISTORY OF URINARY (TRACT) INFE 06/24/2018 MAKAYLA HAWKINS MD Ot Z88. 0 ALLERGY STATUS TO PENICILLIN 06/24/2018 MAKAYLA HAWKINS MD Ot Z88. 8 ALLERGY STATUS TO OTH DRUG/MEDS/BIOL SUB 06/24/2018 MAKAYLA HAWKINS MD Ot Z90. 49 ACQUIRED ABSENCE OF OTHER SPECIFIED PART 06/24/2018 MAKAYLA HAWKINS MD Ot Z90. 5 ACQUIRED ABSENCE OF KIDNEY 06/24/2018 MAKAYLA HAWKINS MD Ot Z90.710 ACQUIRED ABSENCE OF BOTH CERVIX AND UTER 06/24/2018 MAKAYLA HAWKINS MD Ot Z90. 89 ACQUIRED ABSENCE OF OTHER ORGANS 06/24/2018 LINDSEY MARROQUIN DO Ot R10.9 UNSPECIFIED ABDOMINAL PAIN 06/26/2018 MAKAYLA HAWKINS MD Ot E66. 9 OBESITY, UNSPECIFIED 06/26/2018 MAKAYLA HAWKINS MD Ot F17.210 NICOTINE DEPENDENCE, CIGARETTES, UNCOMPL 06/26/2018 MAKAYLA HAWKINS MD Ot F32. 9 MAJOR DEPRESSIVE DISORDER, SINGLE EPISOD 06/26/2018 MAKAYLA HAWKINS MD Ot F41. 9 ANXIETY DISORDER, UNSPECIFIED 06/26/2018 MAKAYLA HAWKINS MD Ot G25. 81 RESTLESS LEGS SYNDROME 06/26/2018 MAKAYLA HAWKINS MD Ot G43.909 MIGRAINE, UNSP, NOT INTRACTABLE, WITHOUT 06/26/2018 MAKAYLA HAWKINS MD Ot G89. 29 OTHER CHRONIC PAIN 06/26/2018 MAKAYLA HAWKINS MD Ot J45.909 UNSPECIFIED ASTHMA, UNCOMPLICATED 06/26/2018 MAKAYLA HAWKINS MD Ot M54. 6 PAIN IN THORACIC SPINE 06/26/2018 MAKAYLA HAWKINS MD Ot N34. 2 OTHER URETHRITIS 06/26/2018 MAKAYLA HAWKINS MD Ot R30. 0 DYSURIA 06/26/2018 MAKAYLA HAWKINS MD Ot Z68. 42 BODY MASS INDEX (BMI) 45.0-49.9, ADULT 06/26/2018 MAKAYLA HAWKINS MD Ot Z79. 51 [facility] (CURRENT) USE OF INHALED STERO 06/26/2018 MAKAYLA HAWKINS MD Ot Z79. 52 PATENT LAW SPECIALIST (CURRENT) USE OF SYSTEMIC STER 06/26/2018 MAKAYLA HAWKISN MD Ot Z82. 49 FAMILY HX OF ISCHEM HEART DIS AND OTH DI 06/26/2018 MAKAYLA HAWKINS MD Ot Z85.528 PERSONAL HISTORY OF OTHER MALIGNANT NEOP 06/26/2018 MAKAYLA HAWKINS MD Ot Z86.010 PERSONAL HISTORY OF COLONIC POLYPS 06/26/2018 MAKAYLA HAWKINS MD Ot Z86. 19 PERSONAL HISTORY OF OTHER INFECTIOUS AND 06/26/2018 MAKAYLA HAWKINS MD Ot Z87. 19 PERSONAL HISTORY OF OTHER DISEASES OF TH 06/26/2018 MAKAYLA HAWKINS MD Ot Z87.440 PERSONAL HISTORY OF URINARY (TRACT) INFE 06/26/2018 MAKAYLA HAWKINS MD Ot Z88. 0 ALLERGY STATUS TO PENICILLIN 06/26/2018 MAKAYLA HAWKINS MD Ot Z88. 8 ALLERGY STATUS TO OTH DRUG/MEDS/BIOL SUB 06/26/2018 MAKAYLA HAWKINS MD Ot Z90. 49 ACQUIRED ABSENCE OF OTHER SPECIFIED PART 06/26/2018 MAKAYLA HAWKINS MD Ot Z90. 5 ACQUIRED ABSENCE OF KIDNEY 06/26/2018 MAKAYLA HAWKINS MD Ot Z90.710 ACQUIRED ABSENCE OF BOTH CERVIX AND UTER 06/26/2018 MAKAYLA HAWKINS MD Ot Z90. 89 ACQUIRED ABSENCE OF OTHER ORGANS 07/01/2018 MAKAYLA HAWKINS MD Ot A08. 4 VIRAL INTESTINAL INFECTION, UNSPECIFIED 07/01/2018 MAKAYLA HAWKINS MD Ot E66. 9 OBESITY, UNSPECIFIED 07/01/2018 MAKAYLA HAWKINS MD Ot F32. 9 MAJOR DEPRESSIVE DISORDER, SINGLE EPISOD 07/01/2018 MAKAYLA HAWKINS MD Ot F41. 9 ANXIETY DISORDER, UNSPECIFIED 07/01/2018 MAKAYLA HAWKINS MD Ot G25. 81 RESTLESS LEGS SYNDROME 07/01/2018 MAKAYLA HAWKINS MD Ot G43.909 MIGRAINE, UNSP, NOT INTRACTABLE, WITHOUT 07/01/2018 MAKAYLA HAWKINS MD Ot J45.909 UNSPECIFIED ASTHMA, UNCOMPLICATED 07/01/2018 MAKAYLA HAWKINS MD Ot R10. 9 UNSPECIFIED ABDOMINAL PAIN 07/01/2018 MAKAYLA HAWKINS MD Ot Z68. 42 BODY MASS INDEX (BMI) 45.0-49.9, ADULT 07/01/2018 MAKAYLA HAWKINS MD Ot Z79. 52 [facility] (CURRENT) USE OF SYSTEMIC STER 07/01/2018 MAKAYLA HAWKINS MD Ot Z82. 49 FAMILY HX OF ISCHEM HEART DIS AND OTH DI 07/01/2018 MAKAYLA HAWKINS MD Ot Z85.528 PERSONAL HISTORY OF OTHER MALIGNANT NEOP 07/01/2018 MAKAYLA HAWKINS MD Ot Z86.010 PERSONAL HISTORY OF COLONIC POLYPS 07/01/2018 MAKAYLA HAWKINS MD Ot Z86. 19 PERSONAL HISTORY OF OTHER INFECTIOUS AND 07/01/2018 MAKAYLA HAWKINS MD Ot Z87. 19 PERSONAL HISTORY OF OTHER DISEASES OF TH 07/01/2018 MAKAYLA HAWKINS MD Ot Z87.440 PERSONAL HISTORY OF URINARY (TRACT) INFE 07/01/2018 MAKAYLA HAWKINS MD Ot Z88. 0 ALLERGY STATUS TO PENICILLIN 07/01/2018 MAKAYLA HAWKINS MD Ot Z88. 8 ALLERGY STATUS TO OT DRUG/MEDS/BIOL SUB 07/01/2018 MAKAYLA HAWKINS MD Ot Z90. 49 ACQUIRED ABSENCE OF OTHER SPECIFIED PART 07/01/2018 MAKAYLA HAWKINS MD Ot Z90. 5 ACQUIRED ABSENCE OF KIDNEY 07/01/2018 MAKAYLA HAWKINS MD Ot Z90.710 ACQUIRED ABSENCE OF BOTH CERVIX AND UTER 07/01/2018 MAKAYLA HAWKINS MD Ot Z90. 89 ACQUIRED ABSENCE OF OTHER ORGANS 07/05/2018 DEMETRIO KAY Ot E66.9 OBESITY, UNSPECIFIED 07/05/2018 DEMETRIO KAY Ot F32.9 MAJOR DEPRESSIVE DISORDER, SINGLE EPISOD 07/05/2018 DEMETRIO KAY Ot F41.9 ANXIETY DISORDER, UNSPECIFIED 07/05/2018 DEMETRIO KAY Ot G25.81 RESTLESS LEGS SYNDROME 07/05/2018 DEMETRIO KAY Ot G43.909 MIGRAINE, UNSP, NOT INTRACTABLE, WITHOUT 07/05/2018 DEMETRIO KAY Ot J45.909 UNSPECIFIED ASTHMA, UNCOMPLICATED 07/05/2018 DEMETRIO KAY Ot M25.511 PAIN IN RIGHT SHOULDER 07/05/2018 DEMETRIO KAY Ot X50.1XXA OVEREXERTION FROM PROLONGED STATIC OR AW 07/05/2018 DEMETRIO KAY Ot Z68.42 BODY MASS INDEX (BMI) 45.0-49.9, ADULT 07/05/2018 DEMETRIO KAY Ot Z79.51 [facility] (CURRENT) USE OF INHALED STERO 07/05/2018 DEMETRIO KAY Ot 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 07/05/2018 DEMETRIO KAY Ot Z82.49 FAMILY HX OF ISCHEM HEART DIS AND OTH DI 07/05/2018 DEMETRIO KAY Ot Z85.528 PERSONAL HISTORY OF OTHER MALIGNANT NEOP 07/05/2018 DEMETRIO KAY Ot Z86.010 PERSONAL HISTORY OF COLONIC POLYPS 07/05/2018 DEMETRIO KAY Ot Z86.19 PERSONAL HISTORY OF OTHER INFECTIOUS AND 07/05/2018 DEMETRIO KAY Ot Z87.19 PERSONAL HISTORY OF OTHER DISEASES OF TH 07/05/2018 DEMETRIO KAY Ot Z87.440 PERSONAL HISTORY OF URINARY (TRACT) INFE 07/05/2018 DEMETRIO KAY Ot Z87.448 PERSONAL HISTORY OF OTHER DISEASES OF UR 07/05/2018 DEMETRIO KAY Ot Z88.0 ALLERGY STATUS TO PENICILLIN 07/05/2018 MARIAM KAYIS Ot Z88.8 ALLERGY STATUS TO OTH DRUG/MEDS/BIOL SUB 07/05/2018 DEMETRIO KAY Ot Z90.49 ACQUIRED ABSENCE OF OTHER SPECIFIED PART 07/05/2018 DEMETRIO KAY Ot Z90.5 ACQUIRED ABSENCE OF KIDNEY 07/05/2018 DEMETRIO KAY Ot Z90.710 ACQUIRED ABSENCE OF BOTH CERVIX AND UTER 07/05/2018 DEMETRIO KAY Ot Z90.89 ACQUIRED ABSENCE OF OTHER ORGANS 07/07/2018 JOAQUIM PARISH, YUKI Machado Ot E66.9 OBESITY, UNSPECIFIED 07/07/2018 YUKI MARCH MD Ot F17.210 NICOTINE DEPENDENCE, CIGARETTES, UNCOMPL 07/07/2018 YUKI MARCH MD Ot F32.9 MAJOR DEPRESSIVE DISORDER, SINGLE EPISOD 07/07/2018 YUKI MARCH MD Ot F41.9 ANXIETY DISORDER, UNSPECIFIED 07/07/2018 YUKI MARCH MD Ot G25.81 RESTLESS LEGS SYNDROME 07/07/2018 YUKI MARCH MD Ot G43.909 MIGRAINE, UNSP, NOT INTRACTABLE, WITHOUT 07/07/2018 YUKI MARCH MD Ot J45.909 UNSPECIFIED ASTHMA, UNCOMPLICATED 07/07/2018 YUKI MARCH MD, Ot M25.511 PAIN IN RIGHT SHOULDER 07/07/2018 YUKI MARCH MD, Ot M54.10 RADICULOPATHY, SITE UNSPECIFIED 07/07/2018 YUKI MARCH MD Ot Z68.42 BODY MASS INDEX (BMI) 45.0-49.9, ADULT 07/07/2018 YUKI MARCH MD, Ot Z79.51 [facility] (CURRENT) USE OF INHALED STERO 07/07/2018 YUKI MARCH MD, Ot 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 07/07/2018 YUKI MARCH MD, Ot Z82.49 FAMILY HX OF ISCHEM HEART DIS AND OTH DI 07/07/2018 YUKI MARCH MD Ot Z85.528 PERSONAL HISTORY OF OTHER MALIGNANT NEOP 07/07/2018 YUKI MARCH MD Ot Z86.010 PERSONAL HISTORY OF COLONIC POLYPS 07/07/2018 YUKI MARCH MD Ot Z86.19 PERSONAL HISTORY OF OTHER INFECTIOUS AND 07/07/2018 YUKI MARCH MD Ot Z87.19 PERSONAL HISTORY OF OTHER DISEASES OF TH 07/07/2018 YUKI MARCH MD Ot Z87.440 PERSONAL HISTORY OF URINARY (TRACT) INFE 07/07/2018 YUKI MARCH MD Ot Z88.0 ALLERGY STATUS TO PENICILLIN 07/07/2018 YUKI MARCH MD Ot Z88.8 ALLERGY STATUS TO OT DRUG/MEDS/BIOL SUB 07/07/2018 YUKI MARCH MD Ot Z90.49 ACQUIRED ABSENCE OF OTHER SPECIFIED PART 07/07/2018 YUKI MARCH MD Ot Z90.5 ACQUIRED ABSENCE OF KIDNEY 07/07/2018 YUKI MARCH MD Ot Z90.710 ACQUIRED ABSENCE OF BOTH CERVIX AND UTER 07/07/2018 YUKI MARCH MD Ot Z90.89 ACQUIRED ABSENCE OF OTHER ORGANS 07/08/2018 DEMETRIO KAY Ot E66.9 OBESITY, UNSPECIFIED 07/08/2018 DEMETRIO KAY Ot F32.9 MAJOR DEPRESSIVE DISORDER, SINGLE EPISOD 07/08/2018 DEMETRIO KAY Ot F41.9 ANXIETY DISORDER, UNSPECIFIED 07/08/2018 DEMETRIO KAY Ot G25.81 RESTLESS LEGS SYNDROME 07/08/2018 DEMETRIO KAY Ot G43.909 MIGRAINE, UNSP, NOT INTRACTABLE, WITHOUT 07/08/2018 DEMETRIO KAY Ot J45.909 UNSPECIFIED ASTHMA, UNCOMPLICATED 07/08/2018 DEMETRIO KAY Ot M25.511 PAIN IN RIGHT SHOULDER 07/08/2018 DEMETRIO KAY Ot X50.1XXA OVEREXERTION FROM PROLONGED STATIC OR AW 07/08/2018 DEMETRIO KAY Ot Z68.42 BODY MASS INDEX (BMI) 45.0-49.9, ADULT 07/08/2018 DEMETRIO KAY Ot Z79.51 [facility] (CURRENT) USE OF INHALED STERO 07/08/2018 DEMETRIO KAY Ot Z79.52 [facility] (CURRENT) USE OF SYSTEMIC STER 07/08/2018 DEMETRIO KAY Ot Z82.49 FAMILY HX OF ISCHEM HEART DIS AND OTH DI 07/08/2018 DEMETRIO KAY Ot Z85.528 PERSONAL HISTORY OF OTHER MALIGNANT NEOP 07/08/2018 DEMETRIO KAY Ot Z86.010 PERSONAL HISTORY OF COLONIC POLYPS 07/08/2018 DEMETRIO KAY Ot Z86.19 PERSONAL HISTORY OF OTHER INFECTIOUS AND 07/08/2018 DEMETRIO KAY Ot Z87.19 PERSONAL HISTORY OF OTHER DISEASES OF TH 07/08/2018 DEMETRIO KAY Ot Z87.440 PERSONAL HISTORY OF URINARY (TRACT) INFE 07/08/2018 DEMETRIO KAY Ot Z87.448 PERSONAL HISTORY OF OTHER DISEASES OF UR 07/08/2018 DEMETRIO KAY Ot Z88.0 ALLERGY STATUS TO PENICILLIN 07/08/2018 DEMETRIO KAY Ot Z88.8 ALLERGY STATUS TO OTH DRUG/MEDS/BIOL SUB 07/08/2018 DEMETRIO KAY Ot Z90.49 ACQUIRED ABSENCE OF OTHER SPECIFIED PART 07/08/2018 DEMETRIO KAY Ot Z90.5 ACQUIRED ABSENCE OF KIDNEY 07/08/2018 DEMETRIO KAY Ot Z90.710 ACQUIRED ABSENCE OF BOTH CERVIX AND UTER 07/08/2018 DEMETRIO KAY Ot Z90.89 ACQUIRED ABSENCE OF OTHER ORGANS 07/09/2018 YUKI MARCH MD Ot E66.9 OBESITY, UNSPECIFIED 07/09/2018 YUKI MARCH MD Ot F17.210 NICOTINE DEPENDENCE, CIGARETTES, UNCOMPL 07/09/2018 YUKI MARCH MD Ot F32.9 MAJOR DEPRESSIVE DISORDER, SINGLE EPISOD 07/09/2018 YUKI MARCH MD Ot F41.9 ANXIETY DISORDER, UNSPECIFIED 07/09/2018 YUKI MARCH MD Ot G25.81 RESTLESS LEGS SYNDROME 07/09/2018 YUKI MARCH MD Ot G43.909 MIGRAINE, UNSP, NOT INTRACTABLE, WITHOUT 07/09/2018 YUKI MARCH MD, Ot J45.909 UNSPECIFIED ASTHMA, UNCOMPLICATED 07/09/2018 YUKI MARCH MD, Ot M25.511 PAIN IN RIGHT SHOULDER 07/09/2018 YUKI MARCH MD Ot M54.10 RADICULOPATHY, SITE UNSPECIFIED 07/09/2018 YUKI MARCH MD Ot Z68.42 BODY MASS INDEX (BMI) 45.0-49.9, ADULT 07/09/2018 YUKI MARCH MD Ot Z79.51 PATENT LAW SPECIALIST (CURRENT) USE OF INHALED STERO 07/09/2018 YUKI MARCH MD Ot Z79.52 [facility] (CURRENT) USE OF SYSTEMIC STER 07/09/2018 YUKI MARCH MD Ot Z82.49 FAMILY HX OF ISCHEM HEART DIS AND OTH DI 07/09/2018 YUKI MARCH MD Ot Z85.528 PERSONAL HISTORY OF OTHER MALIGNANT NEOP 07/09/2018 YUKI MARCH MD Ot Z86.010 PERSONAL HISTORY OF COLONIC POLYPS 07/09/2018 YUKI MARCH MD Ot Z86.19 PERSONAL HISTORY OF OTHER INFECTIOUS AND 07/09/2018 YUKI MARCH MD Ot Z87.19 PERSONAL HISTORY OF OTHER DISEASES OF TH 07/09/2018 YUKI MARCH MD Ot Z87.440 PERSONAL HISTORY OF URINARY (TRACT) INFE 07/09/2018 YUKI MARCH MD Ot Z88.0 ALLERGY STATUS TO PENICILLIN 07/09/2018 YUKI MARCH MD Ot Z88.8 ALLERGY STATUS TO OTH DRUG/MEDS/BIOL SUB 07/09/2018 YUKI MARCH MD Ot Z90.49 ACQUIRED ABSENCE OF OTHER SPECIFIED PART 07/09/2018 YUKI MARCH MD Ot Z90.5 ACQUIRED ABSENCE OF KIDNEY 07/09/2018 YUKI MARCH MD Ot Z90.710 ACQUIRED ABSENCE OF BOTH CERVIX AND UTER 07/09/2018 YUKI MARCH MD Ot Z90.89 ACQUIRED ABSENCE OF OTHER ORGANS 07/11/2018 LINDSEY MARROQUIN DO Ot R10.9 UNSPECIFIED ABDOMINAL PAIN 07/12/2018 DEMETRIO KAY Ot E66.9 OBESITY, UNSPECIFIED 07/12/2018 DEMETRIO KAY Ot F32.9 MAJOR DEPRESSIVE DISORDER, SINGLE EPISOD 07/12/2018 DEMETRIO KAY Ot F41.9 ANXIETY DISORDER, UNSPECIFIED 07/12/2018 DEMETRIO KAY Ot G25.81 RESTLESS LEGS SYNDROME 07/12/2018 DEMETRIO KAY Ot G43.909 MIGRAINE, UNSP, NOT INTRACTABLE, WITHOUT 07/12/2018 DEMETRIO KAY Ot J45.909 UNSPECIFIED ASTHMA, UNCOMPLICATED 07/12/2018 DEMETRIO KAY Ot M25.511 PAIN IN RIGHT SHOULDER 07/12/2018 DEMETRIO KAY Ot X50.1XXA OVEREXERTION FROM PROLONGED STATIC OR AW 07/12/2018 DEMETRIO KAY Ot Z68.42 BODY MASS INDEX (BMI) 45.0-49.9, ADULT 07/12/2018 DEMETRIO KAY Ot Z79.51 PATENT LAW SPECIALIST (CURRENT) USE OF INHALED STERO 07/12/2018 DEMETRIO KAY Ot Z79.52 [facility] (CURRENT) USE OF SYSTEMIC STER 07/12/2018 DEMETRIO KAY Ot Z82.49 FAMILY HX OF ISCHEM HEART DIS AND OTH DI 07/12/2018 DEMETRIO KAY Ot Z85.528 PERSONAL HISTORY OF OTHER MALIGNANT NEOP 07/12/2018 DEMETRIO KAY Ot Z86.010 PERSONAL HISTORY OF COLONIC POLYPS 07/12/2018 DEMETRIO KAY Ot Z86.19 PERSONAL HISTORY OF OTHER INFECTIOUS AND 07/12/2018 DEMETRIO KAY Ot Z87.19 PERSONAL HISTORY OF OTHER DISEASES OF TH 07/12/2018 DEMETRIO KAY Ot Z87.440 PERSONAL HISTORY OF URINARY (TRACT) INFE 07/12/2018 ELIZA DEMETRIO Ot Z87.448 PERSONAL HISTORY OF OTHER DISEASES OF UR 07/12/2018 ELIZA DEMETRIO Ot Z88.0 ALLERGY STATUS TO PENICILLIN 07/12/2018 ELIZA DEMETRIO Ot Z88.8 ALLERGY STATUS TO OTH DRUG/MEDS/BIOL SUB 07/12/2018 DIANNEDAVE DEMETRIO Ot Z90.49 ACQUIRED ABSENCE OF OTHER SPECIFIED PART 07/12/2018 BERNDAVE DEMETRIO Ot Z90.5 ACQUIRED ABSENCE OF KIDNEY 07/12/2018 BERNDAVE DEMETRIO Ot Z90.710 ACQUIRED ABSENCE OF BOTH CERVIX AND UTER 07/12/2018 ELIZA DEMETRIO Ot Z90.89 ACQUIRED ABSENCE OF OTHER ORGANS 07/17/2018 MAKAYLA HAWKINS MD Ot E66. 9 OBESITY, UNSPECIFIED 07/17/2018 MAKAYLA HAWKINS MD Ot F32. 9 MAJOR DEPRESSIVE DISORDER, SINGLE EPISOD 07/17/2018 MAKAYLA HAWKINS MD Ot F41. 9 ANXIETY DISORDER, UNSPECIFIED 07/17/2018 MAKAYLA HAWKINS MD Ot G25. 81 RESTLESS LEGS SYNDROME 07/17/2018 MAKAYLA HAWKINS MD Ot G43.909 MIGRAINE, UNSP, NOT INTRACTABLE, WITHOUT 07/17/2018 MAKAYLA HAWKINS MD Ot J45.909 UNSPECIFIED ASTHMA, UNCOMPLICATED 07/17/2018 MAKAYLA HAWKINS MD Ot M25.511 PAIN IN RIGHT SHOULDER 07/17/2018 MAKAYLA HAWKINS MD Ot M54. 6 PAIN IN THORACIC SPINE 07/17/2018 MAKAYLA HAWKINS MD Ot Z68. 42 BODY MASS INDEX (BMI) 45.0-49.9, ADULT 07/17/2018 MAKAYLA HAWKINS MD Ot Z79. 52 PATENT LAW SPECIALIST (CURRENT) USE OF SYSTEMIC STER 07/17/2018 MAKAYLA HAWKINS MD Ot Z82. 49 FAMILY HX OF ISCHEM HEART DIS AND OTH DI 07/17/2018 MAKAYLA HAWKINS MD Ot Z85.528 PERSONAL HISTORY OF OTHER MALIGNANT NEOP 07/17/2018 MAKAYLA HWAKINS MD Ot Z86.010 PERSONAL HISTORY OF COLONIC POLYPS 07/17/2018 MAKAYLA HAWKINS MD Ot Z86. 19 PERSONAL HISTORY OF OTHER INFECTIOUS AND 07/17/2018 MAKAYLA HAWKINS MD Ot Z87. 19 PERSONAL HISTORY OF OTHER DISEASES OF TH 07/17/2018 MAKAYLA HAWKINS MD Ot Z87.440 PERSONAL HISTORY OF URINARY (TRACT) INFE 07/17/2018 MAKAYLA HAWKINS MD Ot Z87.448 PERSONAL HISTORY OF OTHER DISEASES OF UR 07/17/2018 MAKAYLA HAWKINS MD Ot Z87.891 PERSONAL HISTORY OF NICOTINE DEPENDENCE 07/17/2018 MAKAYLA HAWKINS MD Ot Z88. 0 ALLERGY STATUS TO PENICILLIN 07/17/2018 MAKAYLA HAWKINS MD Ot Z88. 1 ALLERGY STATUS TO OTHER ANTIBIOTIC AGENT 07/17/2018 MAKAYLA HAWKINS MD Ot Z88. 8 ALLERGY STATUS TO OTH DRUG/MEDS/BIOL SUB 07/17/2018 MAKAYLA HAWKINS MD Ot Z90. 5 ACQUIRED ABSENCE OF KIDNEY 07/17/2018 MAKAYLA HAWKINS MD Ot Z90.710 ACQUIRED ABSENCE OF BOTH CERVIX AND UTER 07/17/2018 MAKAYLA HAWKINS MD Ot Z90. 89 ACQUIRED ABSENCE OF OTHER ORGANS 07/17/2018 MAKAYLA HAWKINS MD Ot Z98.890 OTHER SPECIFIED POSTPROCEDURAL STATES 07/17/2018 GEORGES FINN APRN Ot E66 .9 OBESITY, UNSPECIFIED 07/17/2018 GEORGES FINN APRN Ot F32 .9 MAJOR DEPRESSIVE DISORDER, SINGLE EPISOD 07/17/2018 GEORGES FINN APRN Ot F41 .9 ANXIETY DISORDER, UNSPECIFIED 07/17/2018 GEORGES FINN APRN Ot G25.81 RESTLESS LEGS SYNDROME 07/17/2018 GEORGES FINN APRN Ot G43.909 MIGRAINE, UNSP, NOT INTRACTABLE, WITHOUT 07/17/2018 GEORGES FINN APRN Ot J45.909 UNSPECIFIED ASTHMA, UNCOMPLICATED 07/17/2018 GEORGES FINN APRN Ot M25.511 PAIN IN RIGHT SHOULDER 07/17/2018 GEORGES FINN APRN Ot R07.89 OTHER CHEST PAIN 07/17/2018 GEORGES FINN APRN Ot Z68.42 BODY MASS INDEX (BMI) 45.0-49.9, ADULT 07/17/2018 GEORGES FINN APRN Ot 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 07/17/2018 GEORGES FINN APRN Ot Z82.49 FAMILY HX OF ISCHEM HEART DIS AND OTH DI 07/17/2018 GEORGES FINN APRN Ot Z85.528 PERSONAL HISTORY OF OTHER MALIGNANT NEOP 07/17/2018 GEORGES FINN APRN Ot Z86.010 PERSONAL HISTORY OF COLONIC POLYPS 07/17/2018 GEORGES FINN APRN Ot Z86.19 PERSONAL HISTORY OF OTHER INFECTIOUS AND 07/17/2018 GEORGES FINN APRN Ot Z87.19 PERSONAL HISTORY OF OTHER DISEASES OF TH 07/17/2018 GEORGES FINN APRN Ot Z87.440 PERSONAL HISTORY OF URINARY (TRACT) INFE 07/17/2018 GEORGES FINN APRN Ot Z88 .0 ALLERGY STATUS TO PENICILLIN 07/17/2018 GEORGES FINN APRN Ot Z88 .1 ALLERGY STATUS TO OTHER ANTIBIOTIC AGENT 07/17/2018 GEORGES FINN APRN Ot Z88 .8 ALLERGY STATUS TO OT DRUG/MEDS/BIOL SUB 07/17/2018 GEORGES FINN APRN Ot Z90.710 ACQUIRED ABSENCE OF BOTH CERVIX AND UTER 07/17/2018 GEORGES FINN APRN Ot Z90.89 ACQUIRED ABSENCE OF OTHER ORGANS 07/17/2018 GEORGES FINN APRN Ot Z98.890 OTHER SPECIFIED POSTPROCEDURAL STATES 07/21/2018 MAKAYLA HAWKINS MD Ot F32. 9 MAJOR DEPRESSIVE DISORDER, SINGLE EPISOD 07/21/2018 MAKAYLA HAWKINS MD Ot F41. 9 ANXIETY DISORDER, UNSPECIFIED 07/21/2018 MAKAYLA HAWKINS MD Ot G25. 81 RESTLESS LEGS SYNDROME 07/21/2018 MAKAYLA HAWKINS MD Ot G43.909 MIGRAINE, UNSP, NOT INTRACTABLE, WITHOUT 07/21/2018 MAKAYLA HAWKINS MD Ot J45.909 UNSPECIFIED ASTHMA, UNCOMPLICATED 07/21/2018 MAKAYLA HAWKINS MD Ot M25.511 PAIN IN RIGHT SHOULDER 07/21/2018 MAKAYLA HAWKINS MD Ot M54. 6 PAIN IN THORACIC SPINE 07/21/2018 MAKAYLA HAWKINS MD Ot Z79. 52 [facility] (CURRENT) USE OF SYSTEMIC STER 07/21/2018 MAKAYLA HAWKINS MD Ot Z82. 49 FAMILY HX OF ISCHEM HEART DIS AND OTH DI 07/21/2018 MAKAYLA HAWKINS MD Ot Z85.528 PERSONAL HISTORY OF OTHER MALIGNANT NEOP 07/21/2018 MAKAYLA HAWKINS MD Ot Z86.010 PERSONAL HISTORY OF COLONIC POLYPS 07/21/2018 MAKAYLA HAWKINS MD Ot Z86. 19 PERSONAL HISTORY OF OTHER INFECTIOUS AND 07/21/2018 MAKAYLA HAWKINS MD Ot Z87. 19 PERSONAL HISTORY OF OTHER DISEASES OF TH 07/21/2018 MAKAYLA HAWKINS MD Ot Z87.440 PERSONAL HISTORY OF URINARY (TRACT) INFE 07/21/2018 MAKAYLA HAWKINS MD Ot Z87.448 PERSONAL HISTORY OF OTHER DISEASES OF UR 07/21/2018 MAKAYLA HAWKINS MD Ot Z87.891 PERSONAL HISTORY OF NICOTINE DEPENDENCE 07/21/2018 MAKAYLA HAWKINS MD Ot Z88. 0 ALLERGY STATUS TO PENICILLIN 07/21/2018 MAKAYLA HAWKINS MD Ot Z88. 1 ALLERGY STATUS TO OTHER ANTIBIOTIC AGENT 07/21/2018 MAKAYLA HAWKINS MD Ot Z88. 8 ALLERGY STATUS TO [facility] DRUG/MEDS/BIOL SUB 07/21/2018 MAKAYLA HAWKINS MD Ot Z90. 5 ACQUIRED ABSENCE OF KIDNEY 07/21/2018 MAKAYLA HAWKINS MD Ot Z90.710 ACQUIRED ABSENCE OF BOTH CERVIX AND UTER 07/21/2018 MAKAYLA HAWKINS MD Ot Z90. 89 ACQUIRED ABSENCE OF OTHER ORGANS 07/21/2018 MAKAYLA HAWKINS MD Ot Z98.890 OTHER SPECIFIED POSTPROCEDURAL STATES 07/29/2018 MAKAYLA HAWKINS MD Ot E66. 9 OBESITY, UNSPECIFIED 07/29/2018 MAKAYLA HAWKINS MD Ot F32. 9 MAJOR DEPRESSIVE DISORDER, SINGLE EPISOD 07/29/2018 MAKAYLA HAWKINS MD Ot F41. 9 ANXIETY DISORDER, UNSPECIFIED 07/29/2018 MAKAYLA HAWKINS MD Ot G25. 81 RESTLESS LEGS SYNDROME 07/29/2018 MAKAYLA HAWKINS MD Ot G43.909 MIGRAINE, UNSP, NOT INTRACTABLE, WITHOUT 07/29/2018 MAKAYLA HAWKINS MD Ot J45.909 UNSPECIFIED ASTHMA, UNCOMPLICATED 07/29/2018 MAKAYLA HAWKINS MD Ot M25.511 PAIN IN RIGHT SHOULDER 07/29/2018 MAKAYLA HAWKINS MD Ot M54. 6 PAIN IN THORACIC SPINE 07/29/2018 MAKAYLA HAWKINS MD Ot Z68. 42 BODY MASS INDEX (BMI) 45.0-49.9, ADULT 07/29/2018 MAKAYLA HAWKINS MD Ot Z79. 52 MCFP (CURRENT) USE OF SYSTEMIC STER 07/29/2018 MAKAYLA HAWKINS MD Ot Z82. 49 FAMILY HX OF ISCHEM HEART DIS AND OTH DI 07/29/2018 MAKAYLA HAWKINS MD Ot Z85.528 PERSONAL HISTORY OF OTHER MALIGNANT NEOP 07/29/2018 MAKAYLA HAWKINS MD Ot Z86.010 PERSONAL HISTORY OF COLONIC POLYPS 07/29/2018 MAKAYLA HAWKINS MD Ot Z86. 19 PERSONAL HISTORY OF OTHER INFECTIOUS AND 07/29/2018 MAKAYLA HAWKINS MD Ot Z87. 19 PERSONAL HISTORY OF OTHER DISEASES OF TH 07/29/2018 MAKAYLA HAWKINS MD Ot Z87.440 PERSONAL HISTORY OF URINARY (TRACT) INFE 07/29/2018 MAKAYLA HAWKINS MD Ot Z87.448 PERSONAL HISTORY OF OTHER DISEASES OF UR 07/29/2018 MAKAYLA HAWKINS MD Ot Z87.891 PERSONAL HISTORY OF NICOTINE DEPENDENCE 07/29/2018 MAKAYLA HAWKINS MD Ot Z88. 0 ALLERGY STATUS TO PENICILLIN 07/29/2018 MAKAYLA HAWKINS MD Ot Z88. 1 ALLERGY STATUS TO OTHER ANTIBIOTIC AGENT 07/29/2018 MAKAYLA HAWKINS MD Ot Z88. 8 ALLERGY STATUS TO OT DRUG/MEDS/BIOL SUB 07/29/2018 MAKAYLA HAWKINS MD Ot Z90. 5 ACQUIRED ABSENCE OF KIDNEY 07/29/2018 MAKAYLA HAWKINS MD Ot Z90.710 ACQUIRED ABSENCE OF BOTH CERVIX AND UTER 07/29/2018 MAKAYLA HAWKINS MD Ot Z90. 89 ACQUIRED ABSENCE OF OTHER ORGANS 07/29/2018 MAKAYLA HAWKINS MD Ot Z98.890 OTHER SPECIFIED POSTPROCEDURAL STATES 07/29/2018 MAKAYLA HAWKINS MD Ot E66. 9 OBESITY, UNSPECIFIED 07/29/2018 MAKAYLA HAWKINS MD Ot F32. 9 MAJOR DEPRESSIVE DISORDER, SINGLE EPISOD 07/29/2018 MAKAYLA HAWKINS MD Ot F41. 9 ANXIETY DISORDER, UNSPECIFIED 07/29/2018 MAKAYLA HAWKINS MD Ot G25. 81 RESTLESS LEGS SYNDROME 07/29/2018 MAKAYLA HAWKINS MD Ot G43.909 MIGRAINE, UNSP, NOT INTRACTABLE, WITHOUT 07/29/2018 MAKAYLA HAWKINS MD Ot J45.909 UNSPECIFIED ASTHMA, UNCOMPLICATED 07/29/2018 MAKAYLA HAWKINS MD Ot M25.511 PAIN IN RIGHT SHOULDER 07/29/2018 MAKAYLA HAWKINS MD Ot M54. 6 PAIN IN THORACIC SPINE 07/29/2018 MAKAYLA HAWKINS MD Ot Z68. 42 BODY MASS INDEX (BMI) 45.0-49.9, ADULT 07/29/2018 MAKAYLA HAWKINS MD Ot Z79. 52 [facility]FP (CURRENT) USE OF SYSTEMIC STER 07/29/2018 MAKAYLA HAWKINS MD Ot Z82. 49 FAMILY HX OF ISCHEM HEART DIS AND OTH DI 07/29/2018 MAKAYLA HAWKINS MD Ot Z85.528 PERSONAL HISTORY OF OTHER MALIGNANT NEOP 07/29/2018 MAKAYLA HAWKINS MD Ot Z86.010 PERSONAL HISTORY OF COLONIC POLYPS 07/29/2018 MAKAYLA HAWKINS MD Ot Z86. 19 PERSONAL HISTORY OF OTHER INFECTIOUS AND 07/29/2018 MAKAYLA HAWKINS MD Ot Z87. 19 PERSONAL HISTORY OF OTHER DISEASES OF TH 07/29/2018 MAKAYLA HAWKINS MD Ot Z87.440 PERSONAL HISTORY OF URINARY (TRACT) INFE 07/29/2018 MAKAYLA HAWKINS MD Ot Z87.448 PERSONAL HISTORY OF OTHER DISEASES OF UR 07/29/2018 MAKAYLA HAWKINS MD Ot Z87.891 PERSONAL HISTORY OF NICOTINE DEPENDENCE 07/29/2018 MAKAYLA HAWKINS MD Ot Z88. 0 ALLERGY STATUS TO PENICILLIN 07/29/2018 MAKAYLA HAWKINS MD Ot Z88. 1 ALLERGY STATUS TO OTHER ANTIBIOTIC AGENT 07/29/2018 MAKAYLA HAWKINS MD Ot Z88. 8 ALLERGY STATUS TO OT DRUG/MEDS/BIOL SUB 07/29/2018 MAKAYLA HAWKINS MD Ot Z90. 5 ACQUIRED ABSENCE OF KIDNEY 07/29/2018 MAKAYLA HAWKINS MD Ot Z90.710 ACQUIRED ABSENCE OF BOTH CERVIX AND UTER 07/29/2018 MAKAYLA HAWKINS MD Ot Z90. 89 ACQUIRED ABSENCE OF OTHER ORGANS 07/29/2018 SHRUTHI PARISH, MAKAYLA Alston Ot Z98.890 OTHER SPECIFIED POSTPROCEDURAL STATES 08/11/2018 LINDSEY MARROQUIN DO Ot Z01.8 18 ENCOUNTER FOR OTHER PREPROCEDURAL EXAMIN 08/13/2018 LINDSEY MARROQUIN DO B Ot E66.0 1 MORBID (SEVERE) OBESITY DUE TO EXCESS CA 08/13/2018 LINDSEY MARROQUIN DO B Ot E78.5 HYPERLIPIDEMIA, UNSPECIFIED 08/13/2018 SANTIAGO MARROQUIN DOIC B Ot F32.9 MAJOR DEPRESSIVE DISORDER, SINGLE EPISOD 08/13/2018 SANTIAGO MARROQUIN DOIC B Ot I10 ESSENTIAL (PRIMARY) HYPERTENSION 08/13/2018 SANTIAGO MARROQUIN DOIC B Ot K62.5 HEMORRHAGE OF ANUS AND RECTUM 08/13/2018 SANTIAGO MARROQUIN DOIC B Ot Z68.4 2 BODY MASS INDEX (BMI) 45.0-49.9, ADULT 08/13/2018 LINDSEY MARROQUIN DO B Ot Z85.1 18 PERSONAL HISTORY OF MALIGNANT NEOPLASM O 08/13/2018 SANTIAGO MARROQUIN DOIC B Ot Z86.0 10 PERSONAL HISTORY OF COLONIC POLYPS 08/13/2018 SANTIAGO MARROQUIN DOIC B Ot Z88.0 ALLERGY STATUS TO PENICILLIN 08/13/2018 SANTIAGO MARROQUIN DOIC B Ot Z88.5 ALLERGY STATUS TO NARCOTIC AGENT STATUS 08/15/2018 SANTIAGO MARROQUIN DOIC B Ot E66.0 1 MORBID (SEVERE) OBESITY DUE TO EXCESS CA 08/15/2018 SANTIAGO MARROQUIN DOIC B Ot E78.5 HYPERLIPIDEMIA, UNSPECIFIED 08/15/2018 LINDSEY MARROQUIN DO B Ot F32.9 MAJOR DEPRESSIVE DISORDER, SINGLE EPISOD 08/15/2018 SANTIAGO MARROQUIN DOIC B Ot I10 ESSENTIAL (PRIMARY) HYPERTENSION 08/15/2018 SANTIAGO MARROQUIN DOIC B Ot K62.5 HEMORRHAGE OF ANUS AND RECTUM 08/15/2018 CARA GAMING LINDSEY B Ot Z68.4 2 BODY MASS INDEX (BMI) 45.0-49.9, ADULT 08/15/2018 CARA GAMING LINDSEY B Ot Z85.1 18 PERSONAL HISTORY OF MALIGNANT NEOPLASM O 08/15/2018 CARA GAMING LINDSEY B Ot Z86.0 10 PERSONAL HISTORY OF COLONIC POLYPS 08/15/2018 SANTIAGO MARROQUIN DOIC B Ot Z88.0 ALLERGY STATUS TO PENICILLIN 08/15/2018 SANTIAGO MARROQUIN DOIC B Ot Z88.5 ALLERGY STATUS TO NARCOTIC AGENT STATUS 08/25/2018 LINDSEY MARROQUIN DO B Ot Z01.8 18 ENCOUNTER FOR OTHER PREPROCEDURAL EXAMIN 08/25/2018 CARMEN GIBBS MD Ot R91 .1 SOLITARY PULMONARY NODULE 08/25/2018 CARMEN GIBBS MD Ot Z53 .8 PROCEDURE AND TREATMENT NOT CARRIED OUT 08/25/2018 YUNIOR LYLES MD Ot B95.2 ENTEROCOCCUS THE CAUSE OF DISEASES CL 08/25/2018 YUNIOR LYLES MD Ot E86.0 DEHYDRATION 08/25/2018 LINDSEY MARROQUIN DO Ot Z01.8 18 ENCOUNTER FOR OTHER PREPROCEDURAL EXAMIN 08/25/2018 LINDSEY MARROQUIN DO B Ot Z01.8 18 ENCOUNTER FOR OTHER PREPROCEDURAL EXAMIN 08/27/2018 LINDSEY MARROQUIN DO Ot E78.5 HYPERLIPIDEMIA, UNSPECIFIED 08/27/2018 LINDSEY MARROQUIN DO B Ot F32.9 MAJOR DEPRESSIVE DISORDER, SINGLE EPISOD 08/27/2018 SANTIAGO MARROQUIN DOIC B Ot F41.9 ANXIETY DISORDER, UNSPECIFIED 08/27/2018 LINDSEY MARROQUIN DO B Ot G25.8 1 RESTLESS LEGS SYNDROME 08/27/2018 SANTIAGO MARROQUIN DOIC B Ot G62.9 POLYNEUROPATHY, UNSPECIFIED 08/27/2018 SANTIAGO MARROQUIN DOIC B Ot I10 ESSENTIAL (PRIMARY) HYPERTENSION 08/27/2018 SANTIAGO MARROQUIN DOIC B Ot J45.9 09 UNSPECIFIED ASTHMA, UNCOMPLICATED 08/27/2018 SANTIAGO MARROQUIN DOIC B Ot K62.5 HEMORRHAGE OF ANUS AND RECTUM 08/27/2018 SANTIAGO MARROQUIN DOIC B Ot K64.8 OTHER HEMORRHOIDS 08/27/2018 LINDSEY MARROQUIN DO B Ot Z79.8 99 OTHER PATENT LAW SPECIALIST (CURRENT) DRUG THERAPY 08/27/2018 SANTIAGO MARROQUIN DOIC B Ot Z86.0 10 PERSONAL HISTORY OF COLONIC POLYPS 08/28/2018 SANTIAGO MARROQUIN DOIC B Ot E78.5 HYPERLIPIDEMIA, UNSPECIFIED 08/28/2018 SANTIAGO MARROQUIN DOIC B Ot F32.9 MAJOR DEPRESSIVE DISORDER, SINGLE EPISOD 08/28/2018 CARA GAMING, LINDSEY B Ot F41.9 ANXIETY DISORDER, UNSPECIFIED 08/28/2018 CARA GAMING, LINDSEY B Ot G25.8 1 RESTLESS LEGS SYNDROME 08/28/2018 CARA GAMING, LINDSEY B Ot G62.9 POLYNEUROPATHY, UNSPECIFIED 08/28/2018 CARA DO, LINDSEY B Ot I10 ESSENTIAL (PRIMARY) HYPERTENSION 08/28/2018 CARA GAMING, LINDSEY B Ot J45.9 09 UNSPECIFIED ASTHMA, UNCOMPLICATED 08/28/2018 CARA GAMING, LINDSEY B Ot K62.5 HEMORRHAGE OF ANUS AND RECTUM 08/28/2018 CARA GAMING, LINDSEY B Ot K64.8 OTHER HEMORRHOIDS 08/28/2018 CARA GAMING, LINDSEY B Ot Z79.8 99 OTHER [facility] (CURRENT) DRUG THERAPY 08/28/2018 CARA GAMING, LINDSEY B Ot Z86.0 10 PERSONAL HISTORY OF COLONIC POLYPS 08/28/2018 CARA GAMING, LINDSEY B Ot E78.5 HYPERLIPIDEMIA, UNSPECIFIED 08/28/2018 CARA GAMING, LINDSEY B Ot F32.9 MAJOR DEPRESSIVE DISORDER, SINGLE EPISOD 08/28/2018 CARA GAMING, LINDSEY B Ot F41.9 ANXIETY DISORDER, UNSPECIFIED 08/28/2018 CARA GAMING, LINDSEY B Ot G25.8 1 RESTLESS LEGS SYNDROME 08/28/2018 CARA GAMING, LINDSEY B Ot G62.9 POLYNEUROPATHY, UNSPECIFIED 08/28/2018 CARA GAMING, LINDSEY B Ot I10 ESSENTIAL (PRIMARY) HYPERTENSION 08/28/2018 CARA GAMING, LINDSEY B Ot J45.9 09 UNSPECIFIED ASTHMA, UNCOMPLICATED 08/28/2018 CARA GAMING, LINDSEY B Ot K62.5 HEMORRHAGE OF ANUS AND RECTUM 08/28/2018 CARA GAMING, LINDSEY B Ot K64.8 OTHER HEMORRHOIDS 08/28/2018 CARA GAMING, LINDSEY B Ot Z79.8 99 OTHER [facility] (CURRENT) DRUG THERAPY 08/28/2018 CARA GAMING, LINDSEY B Ot Z86.0 10 PERSONAL HISTORY OF COLONIC POLYPS 09/09/2018 DEMETRIO KAY Ot E66.9 OBESITY, UNSPECIFIED 09/09/2018 DEMETRIO KAY Ot F32.9 MAJOR DEPRESSIVE DISORDER, SINGLE EPISOD 09/09/2018 BERNMARIAM ACOSTAIS Ot F41.9 ANXIETY DISORDER, UNSPECIFIED 09/09/2018 DEMETRIO KAY Ot G25.81 RESTLESS LEGS SYNDROME 09/09/2018 DEMETRIO KAY Ot G43.909 MIGRAINE, UNSP, NOT INTRACTABLE, WITHOUT 09/09/2018 DEMETRIO KAY Ot I10 ESSENTIAL (PRIMARY) HYPERTENSION 09/09/2018 DEMETRIO KAY Ot J45.909 UNSPECIFIED ASTHMA, UNCOMPLICATED 09/09/2018 DEMETRIO KAY Ot N39.0 URINARY TRACT INFECTION, SITE NOT SPECIF 09/09/2018 DEMETRIO KAY Ot R30.0 DYSURIA 09/09/2018 DEMETRIO KAY Ot Z68.42 BODY MASS INDEX (BMI) 45.0-49.9, ADULT 09/09/2018 DEMETRIO KAY Ot Z82.49 FAMILY HX OF ISCHEM HEART DIS AND OTH DI 09/09/2018 DEMETRIO KAY Ot Z86.010 PERSONAL HISTORY OF COLONIC POLYPS 09/09/2018 DEMETRIO KAY Ot Z86.19 PERSONAL HISTORY OF OTHER INFECTIOUS AND 09/09/2018 DEMETRIO KAY Ot Z87.19 PERSONAL HISTORY OF OTHER DISEASES OF TH 09/09/2018 DEMETRIO KAY Ot Z87.448 PERSONAL HISTORY OF OTHER DISEASES OF UR 09/09/2018 DEMETRIO KAY Ot Z88.0 ALLERGY STATUS TO PENICILLIN 09/09/2018 DEMETRIO KAY Ot Z88.1 ALLERGY STATUS TO OTHER ANTIBIOTIC AGENT 09/09/2018 DEMETRIO KAY Ot Z88.8 ALLERGY STATUS TO OT DRUG/MEDS/BIOL SUB 09/09/2018 DEMETRIO KAY Ot Z90.49 ACQUIRED ABSENCE OF OTHER SPECIFIED PART 09/09/2018 DEMETRIO KAY Ot Z90.5 ACQUIRED ABSENCE OF KIDNEY 09/09/2018 DEMETRIO KAY Ot Z90.710 ACQUIRED ABSENCE OF BOTH CERVIX AND UTER 09/09/2018 DEMETRIO KAY Ot Z90.89 ACQUIRED ABSENCE OF OTHER ORGANS 09/09/2018 DEMETRIO KAY Ot Z98.890 OTHER SPECIFIED POSTPROCEDURAL STATES 09/21/2018 YAN CHAPARRO DO Ot E66.9 OBESITY, UNSPECIFIED 09/21/2018 YAN CHAPARRO DO Ot F32.9 MAJOR DEPRESSIVE DISORDER, SINGLE EPISOD 09/21/2018 YAN CHAPARRO DO Ot F41.9 ANXIETY DISORDER, UNSPECIFIED 09/21/2018 [facility].81 RESTLESS LEGS SYNDROME 09/21/2018 [facility] G43.909 MIGRAINE, UNSP, NOT INTRACTABLE, WITHOUT 09/21/2018 [facility] I10 ESSENTIAL (PRIMARY) HYPERTENSION 09/21/2018 [facility] Ot J45.909 UNSPECIFIED ASTHMA, UNCOMPLICATED 09/21/2018 [facility] K92.1 MELENA 09/21/2018 [facility] R10.13 EPIGASTRIC PAIN 09/21/2018 [facility] Z68.42 BODY MASS INDEX (BMI) 45.0-49.9, ADULT 09/21/2018 [facility] Z82.49 FAMILY HX OF ISCHEM HEART DIS AND OTH DI 09/21/2018 [facility] Z86.010 PERSONAL HISTORY OF COLONIC POLYPS 09/21/2018 [facility] Z86.19 PERSONAL HISTORY OF OTHER INFECTIOUS AND 09/21/2018 [facility] Z87.19 PERSONAL HISTORY OF OTHER DISEASES OF TH 09/21/2018 [facility] Z87.440 PERSONAL HISTORY OF URINARY (TRACT) INFE 09/21/2018 [facility] Z87.448 PERSONAL HISTORY OF OTHER DISEASES OF UR 09/21/2018 [facility] Z87.891 PERSONAL HISTORY OF NICOTINE DEPENDENCE 09/21/2018 [facility] Z88.0 ALLERGY STATUS TO PENICILLIN 09/21/2018 [facility] Z88.1 ALLERGY STATUS TO OTHER ANTIBIOTIC AGENT 09/21/2018 [facility] Z88.8 ALLERGY STATUS TO OTH DRUG/MEDS/BIOL SUB 09/21/2018 [facility] Z90.49 ACQUIRED ABSENCE OF OTHER SPECIFIED PART 09/21/2018 [facility] Z90.5 ACQUIRED ABSENCE OF KIDNEY 09/21/2018 [facility] Z90.710 ACQUIRED ABSENCE OF BOTH CERVIX AND UTER 09/21/2018 [facility] Z90.89 ACQUIRED ABSENCE OF OTHER ORGANS 09/21/2018 SHANKAR YAN Hurd Ot Z98.890 OTHER SPECIFIED POSTPROCEDURAL STATES 09/22/2018 SHANKAR YAN Vickey Ot E66.9 OBESITY, UNSPECIFIED 09/22/2018 SHANKAR YAN Vickey Ot F32.9 MAJOR DEPRESSIVE DISORDER, SINGLE EPISOD 09/22/2018 SHANKAR YAN Vickey Ot F41.9 ANXIETY DISORDER, UNSPECIFIED 09/22/2018 [facility] Vickey Ot G25.81 RESTLESS LEGS SYNDROME 09/22/2018 [facility] Vickey Ot G43.909 MIGRAINE, UNSP, NOT INTRACTABLE, WITHOUT 09/22/2018 SHANKAR YAN K Ot I10 ESSENTIAL (PRIMARY) HYPERTENSION 09/22/2018 [facility] YAN K Ot J45.909 UNSPECIFIED ASTHMA, UNCOMPLICATED 09/22/2018 [facility] YAN Vickey Ot K92.1 MELENA 09/22/2018 SHANKAR DO YAN K Ot R10.13 EPIGASTRIC PAIN 09/22/2018 [facility] YAN K Ot Z68.42 BODY MASS INDEX (BMI) 45.0-49.9, ADULT 09/22/2018 SHANKAR YAN Vickey Ot Z82.49 FAMILY HX OF ISCHEM HEART DIS AND OTH DI 09/22/2018 SHANKAR YAN K Ot Z86.010 PERSONAL HISTORY OF COLONIC POLYPS 09/22/2018 [facility].19 PERSONAL HISTORY OF OTHER INFECTIOUS AND 09/22/2018 [facility] Z87.19 PERSONAL HISTORY OF OTHER DISEASES OF TH 09/22/2018 SHANKAR YAN Ot Z87.440 PERSONAL HISTORY OF URINARY (TRACT) INFE 09/22/2018 [place] YAN Ot Z87.448 PERSONAL HISTORY OF OTHER DISEASES OF UR 09/22/2018 SHANKAR YAN GAMING Ot Z87.891 PERSONAL HISTORY OF NICOTINE DEPENDENCE 09/22/2018 [facility] Z88.0 ALLERGY STATUS TO PENICILLIN 09/22/2018 [facility] Z88.1 ALLERGY STATUS TO OTHER ANTIBIOTIC AGENT 09/22/2018 [facility] Z88.8 ALLERGY STATUS TO OT DRUG/MEDS/BIOL SUB 09/22/2018 SHANKAR YAN GAMING Ot Z90.49 ACQUIRED ABSENCE OF OTHER SPECIFIED PART 09/22/2018 SHANKAR YAN GAMING Ot Z90.5 ACQUIRED ABSENCE OF KIDNEY 09/22/2018 SHANKAR YAN GAMING Ot Z90.710 ACQUIRED ABSENCE OF BOTH CERVIX AND UTER 09/22/2018 SHANKAR YAN GAMING Ot Z90.89 ACQUIRED ABSENCE OF OTHER ORGANS 09/22/2018 SHANKAR YAN GAMING Ot Z98.890 OTHER SPECIFIED POSTPROCEDURAL STATES 10/14/2018 GEORGES FINN APRN Ot E66 .9 OBESITY, UNSPECIFIED 10/14/2018 GEORGES FINN APRN Ot F32 .9 MAJOR DEPRESSIVE DISORDER, SINGLE EPISOD 10/14/2018 GEORGES FINN APRN Ot F41 .9 ANXIETY DISORDER, UNSPECIFIED 10/14/2018 GEORGES FINN APRN Ot G25.81 RESTLESS LEGS SYNDROME 10/14/2018 GEORGES FINN APRN Ot G43.909 MIGRAINE, UNSP, NOT INTRACTABLE, WITHOUT 10/14/2018 GEORGES FINN APRN Ot G89.29 OTHER CHRONIC PAIN 10/14/2018 GEORGES FINN APRN Ot I10 ESSENTIAL (PRIMARY) HYPERTENSION 10/14/2018 GEORGES FINN APRN Ot J45.909 UNSPECIFIED ASTHMA, UNCOMPLICATED 10/14/2018 GEORGES FINN APRN Ot R10.13 EPIGASTRIC PAIN 10/14/2018 GEORGES FINN APRN Ot Z82.49 FAMILY HX OF ISCHEM HEART DIS AND OTH DI 10/14/2018 GEORGES FINN APRN Ot Z85.528 PERSONAL HISTORY OF OTHER MALIGNANT NEOP 10/14/2018 GEORGES FINN APRN Ot Z86.010 PERSONAL HISTORY OF COLONIC POLYPS 10/14/2018 GEORGES FINN APRN Ot Z86.19 PERSONAL HISTORY OF OTHER INFECTIOUS AND 10/14/2018 GEORGES FINN APRN Ot Z87.19 PERSONAL HISTORY OF OTHER DISEASES OF TH 10/14/2018 GEORGES FINN APRN Ot Z87.440 PERSONAL HISTORY OF URINARY (TRACT) INFE 10/14/2018 GEORGES FINN APRN Ot Z87.448 PERSONAL HISTORY OF OTHER DISEASES OF UR 10/14/2018 GEORGES FINN APRN Ot Z88 .0 ALLERGY STATUS TO PENICILLIN 10/14/2018 GEORGES FINN APRN Ot Z88 .1 ALLERGY STATUS TO OTHER ANTIBIOTIC AGENT 10/14/2018 GEORGES FINN APRN Ot Z88 .8 ALLERGY STATUS TO OT DRUG/MEDS/BIOL SUB 10/14/2018 GEORGES FINN APRN Ot Z90.49 ACQUIRED ABSENCE OF OTHER SPECIFIED PART 10/14/2018 GEORGES FINN APRN Ot Z90 .5 ACQUIRED ABSENCE OF KIDNEY 10/14/2018 GEORGES FINN APRN Ot Z90.710 ACQUIRED ABSENCE OF BOTH CERVIX AND UTER 10/14/2018 GEORGES FINN APRN Ot Z90.89 ACQUIRED ABSENCE OF OTHER ORGANS 10/14/2018 GEORGES FINN APRN Ot Z98.890 OTHER SPECIFIED POSTPROCEDURAL STATES 10/16/2018 GEORGES FINN APRN Ot E66 .9 OBESITY, UNSPECIFIED 10/16/2018 GEORGES FINN APRN Ot F32 .9 MAJOR DEPRESSIVE DISORDER, SINGLE EPISOD 10/16/2018 GEORGES FINN APRN Ot F41 .9 ANXIETY DISORDER, UNSPECIFIED 10/16/2018 GEORGES FINN APRN Ot G25.81 RESTLESS LEGS SYNDROME 10/16/2018 GEORGES FINN APRN Ot G43.909 MIGRAINE, UNSP, NOT INTRACTABLE, WITHOUT 10/16/2018 GEORGES FINN APRN Ot G89.29 OTHER CHRONIC PAIN 10/16/2018 GEORGES FINN APRN Ot I10 ESSENTIAL (PRIMARY) HYPERTENSION 10/16/2018 GEORGES FINN APRN Ot J45.909 UNSPECIFIED ASTHMA, UNCOMPLICATED 10/16/2018 GEORGES FINN APRN Ot R10.13 EPIGASTRIC PAIN 10/16/2018 GEORGES FINN APRN Ot Z82.49 FAMILY HX OF ISCHEM HEART DIS AND OTH DI 10/16/2018 GEORGES FINN APRN Ot Z85.528 PERSONAL HISTORY OF OTHER MALIGNANT NEOP 10/16/2018 GEORGES FINN APRN Ot Z86.010 PERSONAL HISTORY OF COLONIC POLYPS 10/16/2018 GEORGES FINN APRN Ot Z86.19 PERSONAL HISTORY OF OTHER INFECTIOUS AND 10/16/2018 GEORGES FINN APRN Ot Z87.19 PERSONAL HISTORY OF OTHER DISEASES OF TH 10/16/2018 GEORGES FINN APRN Ot Z87.440 PERSONAL HISTORY OF URINARY (TRACT) INFE 10/16/2018 GEORGES FINN APRN Ot Z87.448 PERSONAL HISTORY OF OTHER DISEASES OF UR 10/16/2018 GEORGES FINN APRN Ot Z88 .0 ALLERGY STATUS TO PENICILLIN 10/16/2018 GEORGES FINN APRN Ot Z88 .1 ALLERGY STATUS TO OTHER ANTIBIOTIC AGENT 10/16/2018 GEORGES FINN APRN Ot Z88 .8 ALLERGY STATUS TO OTH DRUG/MEDS/BIOL SUB 10/16/2018 GEORGES FINN APRN Ot Z90.49 ACQUIRED ABSENCE OF OTHER SPECIFIED PART 10/16/2018 GEORGES FINN APRN Ot Z90 .5 ACQUIRED ABSENCE OF KIDNEY 10/16/2018 GEORGES FINN APRN Ot Z90.710 ACQUIRED ABSENCE OF BOTH CERVIX AND UTER 10/16/2018 GEORGES FINN APRN Ot Z90.89 ACQUIRED ABSENCE OF OTHER ORGANS 10/16/2018 GEORGES FINN APRN Ot Z98.890 OTHER SPECIFIED POSTPROCEDURAL STATES 10/16/2018 CARMEN GIBBS MD Ot R91 .1 SOLITARY PULMONARY NODULE 10/16/2018 CARMEN GIBBS MD Ot Z53 .8 PROCEDURE AND TREATMENT NOT CARRIED OUT 10/16/2018 YUNIOR LYLES MD Ot B95.2 ENTEROCOCCUS THE CAUSE OF DISEASES CL 10/16/2018 YUNIOR LYLES MD Ot E86.0 DEHYDRATION 10/16/2018 CARMEN GIBBS MD Ot E66 .9 OBESITY, UNSPECIFIED 10/16/2018 CARMEN GIBBS MD Ot F17.210 NICOTINE DEPENDENCE, CIGARETTES, UNCOMPL 10/16/2018 CARMEN GIBBS MD Ot F32 .9 MAJOR DEPRESSIVE DISORDER, SINGLE EPISOD 10/16/2018 CARMEN GIBBS MD, Ot F41 .9 ANXIETY DISORDER, UNSPECIFIED 10/16/2018 CARMEN GIBBS MD Ot G25.81 RESTLESS LEGS SYNDROME 10/16/2018 CARMEN GIBBS MD, Ot G43.909 MIGRAINE, UNSP, NOT INTRACTABLE, WITHOUT 10/16/2018 CARMEN GIBBS MD Ot I10 ESSENTIAL (PRIMARY) HYPERTENSION 10/16/2018 CARMEN GIBBS MD Ot J30 .2 OTHER SEASONAL ALLERGIC RHINITIS 10/16/2018 CARMEN GIBBS MD Ot J45.909 UNSPECIFIED ASTHMA, UNCOMPLICATED 10/16/2018 CARMEN GIBBS MD Ot K56.690 OTHER PARTIAL INTESTINAL OBSTRUCTION 10/16/2018 CARMEN GIBBS MD Ot K59.00 CONSTIPATION, UNSPECIFIED 10/16/2018 CARMEN GIBBS MD Ot M54 .9 DORSALGIA, UNSPECIFIED 10/16/2018 CARMEN GIBBS MD Ot Z68.39 BODY MASS INDEX (BMI) 39.0-39.9, ADULT 10/16/2018 CARMEN GIBBS MD Ot Z85.528 PERSONAL HISTORY OF OTHER MALIGNANT NEOP 10/16/2018 CARMEN GIBBS MD Ot Z86.19 PERSONAL HISTORY OF OTHER INFECTIOUS AND 10/16/2018 CARMEN GIBBS MD Ot Z87.19 PERSONAL HISTORY OF OTHER DISEASES OF TH 10/16/2018 CARMEN GIBBS MD Ot Z90 .5 ACQUIRED ABSENCE OF KIDNEY 10/16/2018 LINDSEY MARROQUIN DO Ot Z01.8 18 ENCOUNTER FOR OTHER PREPROCEDURAL EXAMIN 10/16/2018 CARMEN GIBBS MD Ot E66 .9 OBESITY, UNSPECIFIED 10/16/2018 CARMEN GIBBS MD Ot F17.210 NICOTINE DEPENDENCE, CIGARETTES, UNCOMPL 10/16/2018 CARMEN GIBBS MD Ot F32 .9 MAJOR DEPRESSIVE DISORDER, SINGLE EPISOD 10/16/2018 CARMEN GIBBS MD Ot F41 .9 ANXIETY DISORDER, UNSPECIFIED 10/16/2018 CARMEN GIBBS MD Ot G25.81 RESTLESS LEGS SYNDROME 10/16/2018 CARMEN GIBBS MD Ot G43.909 MIGRAINE, UNSP, NOT INTRACTABLE, WITHOUT 10/16/2018 CARMEN GIBBS MD Ot I10 ESSENTIAL (PRIMARY) HYPERTENSION 10/16/2018 CARMEN GIBBS MD Ot J30 .2 OTHER SEASONAL ALLERGIC RHINITIS 10/16/2018 CARMEN GIBBS MD Ot J45.909 UNSPECIFIED ASTHMA, UNCOMPLICATED 10/16/2018 CARMEN GIBBS MD Ot K56.690 OTHER PARTIAL INTESTINAL OBSTRUCTION 10/16/2018 CARMEN GIBBS MD Ot K59.00 CONSTIPATION, UNSPECIFIED 10/16/2018 CARMEN GIBBS MD Ot M54 .9 DORSALGIA, UNSPECIFIED 10/16/2018 CARMEN GIBBS MD Ot Z68.39 BODY MASS INDEX (BMI) 39.0-39.9, ADULT 10/16/2018 CARMEN GIBBS MD Ot Z85.528 PERSONAL HISTORY OF OTHER MALIGNANT NEOP 10/16/2018 CARMEN GIBBS MD, Ot Z86.19 PERSONAL HISTORY OF OTHER INFECTIOUS AND 10/16/2018 CARMEN GIBBS MD, Ot Z87.19 PERSONAL HISTORY OF OTHER DISEASES OF TH 10/16/2018 CARMEN GIBBS MD, Ot Z90 .5 ACQUIRED ABSENCE OF KIDNEY 10/23/2018 LINDSEY MARROQUIN DO Ot E66.0 1 MORBID (SEVERE) OBESITY DUE TO EXCESS CA 10/23/2018 LINDSEY MARROQUIN DO Ot E78.5 HYPERLIPIDEMIA, UNSPECIFIED 10/23/2018 LINDSEY MARROQUIN DO Ot F32.9 MAJOR DEPRESSIVE DISORDER, SINGLE EPISOD 10/23/2018 LINDSEY MARROQUIN DO B Ot G25.8 1 RESTLESS LEGS SYNDROME 10/23/2018 SANTIAGO MARROQUIN DOIC B Ot I10 ESSENTIAL (PRIMARY) HYPERTENSION 10/23/2018 LINDSEY MARROQUIN DO B Ot J45.9 09 UNSPECIFIED ASTHMA, UNCOMPLICATED 10/23/2018 SANTIAGO MARROQUIN DOIC B Ot K43.0 INCISIONAL HERNIA WITH OBSTRUCTION, WITH 10/23/2018 SANTIAGO MARROQUIN DOIC B Ot K86.1 OTHER CHRONIC PANCREATITIS 10/23/2018 CARMEN GIBBS MD Ot E66 .9 OBESITY, UNSPECIFIED 10/23/2018 CARMEN GIBBS MD Ot F17.210 NICOTINE DEPENDENCE, CIGARETTES, UNCOMPL 10/23/2018 CARMEN GIBBS MD Ot F32 .9 MAJOR DEPRESSIVE DISORDER, SINGLE EPISOD 10/23/2018 CARMEN GIBBS MD Ot F41 .9 ANXIETY DISORDER, UNSPECIFIED 10/23/2018 CARMEN GIBBS MD Ot G25.81 RESTLESS LEGS SYNDROME 10/23/2018 CARMEN GIBBS MD Ot G43.909 MIGRAINE, UNSP, NOT INTRACTABLE, WITHOUT 10/23/2018 CARMEN GIBBS MD Ot I10 ESSENTIAL (PRIMARY) HYPERTENSION 10/23/2018 CARMEN GIBBS MD Ot J30 .2 OTHER SEASONAL ALLERGIC RHINITIS 10/23/2018 CARMEN GIBBS MD Ot J45.909 UNSPECIFIED ASTHMA, UNCOMPLICATED 10/23/2018 CARMEN GIBBS MD Ot K56.690 OTHER PARTIAL INTESTINAL OBSTRUCTION 10/23/2018 CARMEN GIBBS MD Ot K59.00 CONSTIPATION, UNSPECIFIED 10/23/2018 CARMEN GIBBS MD Ot M54 .9 DORSALGIA, UNSPECIFIED 10/23/2018 CARMEN GIBBS MD Ot Z68.39 BODY MASS INDEX (BMI) 39.0-39.9, ADULT 10/23/2018 CARMEN GIBBS MD Ot Z85.528 PERSONAL HISTORY OF OTHER MALIGNANT NEOP 10/23/2018 CARMEN GIBBS MD Ot Z86.19 PERSONAL HISTORY OF OTHER INFECTIOUS AND 10/23/2018 CARMEN GIBBS MD Ot Z87.19 PERSONAL HISTORY OF OTHER DISEASES OF TH 10/23/2018 CARMEN GIBBS MD Ot Z90 .5 ACQUIRED ABSENCE OF KIDNEY 10/23/2018 CARMEN GIBBS MD Ot E66 .9 OBESITY, UNSPECIFIED 10/23/2018 CARMEN GIBBS MD Ot F17.210 NICOTINE DEPENDENCE, CIGARETTES, UNCOMPL 10/23/2018 CARMEN GIBBS MD Ot F32 .9 MAJOR DEPRESSIVE DISORDER, SINGLE EPISOD 10/23/2018 CARMEN GIBBS MD Ot F41 .9 ANXIETY DISORDER, UNSPECIFIED 10/23/2018 CARMEN GIBBS MD Ot G25.81 RESTLESS LEGS SYNDROME 10/23/2018 CARMEN GIBBS MD Ot G43.909 MIGRAINE, UNSP, NOT INTRACTABLE, WITHOUT 10/23/2018 CARMEN GIBBS MD Ot I10 ESSENTIAL (PRIMARY) HYPERTENSION 10/23/2018 CARMEN GIBBS MD Ot J30 .2 OTHER SEASONAL ALLERGIC RHINITIS 10/23/2018 CARMEN GIBBS MD Ot J45.909 UNSPECIFIED ASTHMA, UNCOMPLICATED 10/23/2018 CARMEN GIBBS MD Ot K56.690 OTHER PARTIAL INTESTINAL OBSTRUCTION 10/23/2018 CARMEN GIBBS MD Ot K59.00 CONSTIPATION, UNSPECIFIED 10/23/2018 CARMEN GIBBS MD, Ot M54 .9 DORSALGIA, UNSPECIFIED 10/23/2018 CARMEN GIBBS MD Ot Z68.39 BODY MASS INDEX (BMI) 39.0-39.9, ADULT 10/23/2018 CARMEN GIBBS MD Ot Z85.528 PERSONAL HISTORY OF OTHER MALIGNANT NEOP 10/23/2018 CARMEN GIBBS MD, Ot Z86.19 PERSONAL HISTORY OF OTHER INFECTIOUS AND 10/23/2018 CARMEN GIBBS MD, Ot Z87.19 PERSONAL HISTORY OF OTHER DISEASES OF TH 10/23/2018 CARMEN GIBBS MD, Ot Z90 .5 ACQUIRED ABSENCE OF KIDNEY 10/23/2018 CARMEN GIBBS MD Ot E66 .9 OBESITY, UNSPECIFIED 10/23/2018 CARMEN GIBBS MD Ot F17.210 NICOTINE DEPENDENCE, CIGARETTES, UNCOMPL 10/23/2018 CARMEN GIBBS MD Ot F32 .9 MAJOR DEPRESSIVE DISORDER, SINGLE EPISOD 10/23/2018 CARMEN GIBBS MD Ot F41 .9 ANXIETY DISORDER, UNSPECIFIED 10/23/2018 CARMEN GIBBS MD Ot G25.81 RESTLESS LEGS SYNDROME 10/23/2018 CARMEN GIBBS MD Ot G43.909 MIGRAINE, UNSP, NOT INTRACTABLE, WITHOUT 10/23/2018 CARMEN GIBBS MD Ot I10 ESSENTIAL (PRIMARY) HYPERTENSION 10/23/2018 CARMEN GIBBS MD Ot J30 .2 OTHER SEASONAL ALLERGIC RHINITIS 10/23/2018 CARMEN GIBBS MD Ot J45.909 UNSPECIFIED ASTHMA, UNCOMPLICATED 10/23/2018 CARMEN GIBBS MD Ot K56.690 OTHER PARTIAL INTESTINAL OBSTRUCTION 10/23/2018 CARMEN GIBBS MD Ot K59.00 CONSTIPATION, UNSPECIFIED 10/23/2018 CARMEN GIBBS MD, Ot M54 .9 DORSALGIA, UNSPECIFIED 10/23/2018 CARMEN GIBBS MD Ot Z68.39 BODY MASS INDEX (BMI) 39.0-39.9, ADULT 10/23/2018 CARMEN GIBBS MD Ot Z85.528 PERSONAL HISTORY OF OTHER MALIGNANT NEOP 10/23/2018 CARMEN GIBBS MD Ot Z86.19 PERSONAL HISTORY OF OTHER INFECTIOUS AND 10/23/2018 CARMEN GIBBS MD Ot Z87.19 PERSONAL HISTORY OF OTHER DISEASES OF TH 10/23/2018 SAI [place], CARMEN Christie Ot Z90 .5 ACQUIRED ABSENCE OF KIDNEY 10/29/2018 DEMETRIO KAY Ot E66.9 OBESITY, UNSPECIFIED 10/29/2018 DEMETRIO KAY Ot F32.9 MAJOR DEPRESSIVE DISORDER, SINGLE EPISOD 10/29/2018 MARIAM KAYIS Ot F41.9 ANXIETY DISORDER, UNSPECIFIED 10/29/2018 MARIAM KAYIS Ot G25.81 RESTLESS LEGS SYNDROME 10/29/2018 MARIAM KAYIS Ot G43.909 MIGRAINE, UNSP, NOT INTRACTABLE, WITHOUT 10/29/2018 MARIAM KAYIS Ot G89.18 OTHER ACUTE POSTPROCEDURAL PAIN 10/29/2018 DEMETRIO KAY Ot I10 ESSENTIAL (PRIMARY) HYPERTENSION 10/29/2018 MARIAM KAYIS Ot J45.909 UNSPECIFIED ASTHMA, UNCOMPLICATED 10/29/2018 MARIAM KAYIS Ot R10.32 LEFT LOWER QUADRANT PAIN 10/29/2018 MARIAM KAYIS Ot Z82.49 FAMILY HX OF ISCHEM HEART DIS AND OTH DI 10/29/2018 DEMETRIO KAY Ot Z85.528 PERSONAL HISTORY OF OTHER MALIGNANT NEOP 10/29/2018 DEMETRIO KAY Ot Z86.010 PERSONAL HISTORY OF COLONIC POLYPS 10/29/2018 DEMETRIO KAY Ot Z86.19 PERSONAL HISTORY OF OTHER INFECTIOUS AND 10/29/2018 DEMETRIO KAY Ot Z87.19 PERSONAL HISTORY OF OTHER DISEASES OF TH 10/29/2018 DEMETRIO KAY Ot Z87.440 PERSONAL HISTORY OF URINARY (TRACT) INFE 10/29/2018 DEMETRIO KAY Ot Z87.448 PERSONAL HISTORY OF OTHER DISEASES OF UR 10/29/2018 DEMETRIO KAY Ot Z88.0 ALLERGY STATUS TO PENICILLIN 10/29/2018 DEMETRIO KAY Ot Z88.1 ALLERGY STATUS TO OTHER ANTIBIOTIC AGENT 10/29/2018 DEMETRIO KAY Ot Z88.8 ALLERGY STATUS TO OTH DRUG/MEDS/BIOL SUB 10/29/2018 DEMETRIO KAY Ot Z90.49 ACQUIRED ABSENCE OF OTHER SPECIFIED PART 10/29/2018 DEMETRIO KAY Ot Z90.5 ACQUIRED ABSENCE OF KIDNEY 10/29/2018 DEMETRIO KAY Ot Z90.710 ACQUIRED ABSENCE OF BOTH CERVIX AND UTER 10/29/2018 DEMETRIO KAY Ot Z90.89 ACQUIRED ABSENCE OF OTHER ORGANS 10/29/2018 DEMETRIO KAY Ot Z98.890 OTHER SPECIFIED POSTPROCEDURAL STATES 10/31/2018 DEMETRIO KAY Ot E66.9 OBESITY, UNSPECIFIED 10/31/2018 DEMETRIO KAY Ot F32.9 MAJOR DEPRESSIVE DISORDER, SINGLE EPISOD 10/31/2018 DEMETRIO KAY Ot F41.9 ANXIETY DISORDER, UNSPECIFIED 10/31/2018 DEMETRIO KAY Ot G25.81 RESTLESS LEGS SYNDROME 10/31/2018 DEMETRIO KAY Ot G43.909 MIGRAINE, UNSP, NOT INTRACTABLE, WITHOUT 10/31/2018 DEMETRIO KAY Ot G89.18 OTHER ACUTE POSTPROCEDURAL PAIN 10/31/2018 DEMETRIO KAY Ot I10 ESSENTIAL (PRIMARY) HYPERTENSION 10/31/2018 DEMETRIO KAY Ot J45.909 UNSPECIFIED ASTHMA, UNCOMPLICATED 10/31/2018 DEMETRIO KAY Ot R10.32 LEFT LOWER QUADRANT PAIN 10/31/2018 DEMETRIO KAY Ot Z82.49 FAMILY HX OF ISCHEM HEART DIS AND OTH DI 10/31/2018 DEMETRIO KAY Ot Z85.528 PERSONAL HISTORY OF OTHER MALIGNANT NEOP 10/31/2018 DEMETRIO KAY Ot Z86.010 PERSONAL HISTORY OF COLONIC POLYPS 10/31/2018 DEMETRIO KAY Ot Z86.19 PERSONAL HISTORY OF OTHER INFECTIOUS AND 10/31/2018 DEMETRIO KAY Ot Z87.19 PERSONAL HISTORY OF OTHER DISEASES OF TH 10/31/2018 DEMETRIO KAY Ot Z87.440 PERSONAL HISTORY OF URINARY (TRACT) INFE 10/31/2018 DEMETRIO KAY Ot Z87.448 PERSONAL HISTORY OF OTHER DISEASES OF UR 10/31/2018 DEMETRIO KAY Ot Z88.0 ALLERGY STATUS TO PENICILLIN 10/31/2018 DEMETRIO KAY Ot Z88.1 ALLERGY STATUS TO OTHER ANTIBIOTIC AGENT 10/31/2018 DEMETRIO KAY Ot Z88.8 ALLERGY STATUS TO OT DRUG/MEDS/BIOL SUB 10/31/2018 DEMETRIO KAY Ot Z90.49 ACQUIRED ABSENCE OF OTHER SPECIFIED PART 10/31/2018 DEMETRIO KAY Ot Z90.5 ACQUIRED ABSENCE OF KIDNEY 10/31/2018 DEMETRIO KAY Ot Z90.710 ACQUIRED ABSENCE OF BOTH CERVIX AND UTER 10/31/2018 DEMETRIO KAY Ot Z90.89 ACQUIRED ABSENCE OF OTHER ORGANS 10/31/2018 DEMETRIO KAY Ot Z98.890 OTHER SPECIFIED POSTPROCEDURAL STATES 11/11/2018 YUKI MARCH MD Ot E66.9 OBESITY, UNSPECIFIED 11/11/2018 YUKI MARCH MD, Ot E86.0 DEHYDRATION 11/11/2018 YUKI MARCH MD Ot F17.210 NICOTINE DEPENDENCE, CIGARETTES, UNCOMPL 11/11/2018 YUKI MARCH MD, Ot F32.9 MAJOR DEPRESSIVE DISORDER, SINGLE EPISOD 11/11/2018 YUKI MARCH MD, Ot F41.9 ANXIETY DISORDER, UNSPECIFIED 11/11/2018 YUKI MARCH MD Ot G25.81 RESTLESS LEGS SYNDROME 11/11/2018 YUKI MARCH MD Ot G43.909 MIGRAINE, UNSP, NOT INTRACTABLE, WITHOUT 11/11/2018 YUKI MARCH MD Ot I10 ESSENTIAL (PRIMARY) HYPERTENSION 11/11/2018 YUKI MARCH MD Ot J45.909 UNSPECIFIED ASTHMA, UNCOMPLICATED 11/11/2018 YUKI MARCH MD Ot R10.12 LEFT UPPER QUADRANT PAIN 11/11/2018 YUKI MARCH MD Ot R10.32 LEFT LOWER QUADRANT PAIN 11/11/2018 YUKI MARCH MD Ot Z68.42 BODY MASS INDEX (BMI) 45.0-49.9, ADULT 11/11/2018 YUKI MARCH MD Ot Z82.49 FAMILY HX OF ISCHEM HEART DIS AND OTH DI 11/11/2018 YUKI MARCH MD Ot Z85.528 PERSONAL HISTORY OF OTHER MALIGNANT NEOP 11/11/2018 YUKI MARCH MD Ot Z86.010 PERSONAL HISTORY OF COLONIC POLYPS 11/11/2018 YUKI MARCH MD Ot Z86.19 PERSONAL HISTORY OF OTHER INFECTIOUS AND 11/11/2018 YUKI MARHC MD, Ot Z87.19 PERSONAL HISTORY OF OTHER DISEASES OF TH 11/11/2018 YUKI MARCH MD, Ot Z87.440 PERSONAL HISTORY OF URINARY (TRACT) INFE 11/11/2018 YUKI MARCH MD, Ot Z87.448 PERSONAL HISTORY OF OTHER DISEASES OF UR 11/11/2018 YUKI MARCH MD, Ot Z88.0 ALLERGY STATUS TO PENICILLIN 11/11/2018 YUKI MARCH MD, Ot Z88.1 ALLERGY STATUS TO OTHER ANTIBIOTIC AGENT 11/11/2018 YUKI MARCH MD, Ot Z88.8 ALLERGY STATUS TO OT DRUG/MEDS/BIOL SUB 11/11/2018 YUKI MARCH MD, Ot Z90.49 ACQUIRED ABSENCE OF OTHER SPECIFIED PART 11/11/2018 YUKI MARCH MD, Ot Z90.5 ACQUIRED ABSENCE OF KIDNEY 11/11/2018 YUKI MARCH MD Ot Z90.710 ACQUIRED ABSENCE OF BOTH CERVIX AND UTER 11/11/2018 YUKI MARCH MD, Ot Z90.89 ACQUIRED ABSENCE OF OTHER ORGANS 11/11/2018 YUKI MARCH MD Ot Z98.890 OTHER SPECIFIED POSTPROCEDURAL STATES 11/15/2018 DEMETRIO KAY Ot E66.9 OBESITY, UNSPECIFIED 11/15/2018 DEMETRIO KAY Ot F32.9 MAJOR DEPRESSIVE DISORDER, SINGLE EPISOD 11/15/2018 DEMETRIO KAY Ot F41.9 ANXIETY DISORDER, UNSPECIFIED 11/15/2018 DEMETRIO KAY Ot G25.81 RESTLESS LEGS SYNDROME 11/15/2018 DEMETRIO KAY Ot G43.909 MIGRAINE, UNSP, NOT INTRACTABLE, WITHOUT 11/15/2018 DEMETRIO KAY Ot I10 ESSENTIAL (PRIMARY) HYPERTENSION 11/15/2018 DEMETRIO KAY Ot J45.909 UNSPECIFIED ASTHMA, UNCOMPLICATED 11/15/2018 DEMETRIO KAY Ot R10.9 UNSPECIFIED ABDOMINAL PAIN 11/15/2018 DEMETRIO KAY Ot Z82.49 FAMILY HX OF ISCHEM HEART DIS AND OTH DI 11/15/2018 DEMETRIO KAY Ot Z85.528 PERSONAL HISTORY OF OTHER MALIGNANT NEOP 11/15/2018 DEMETRIO KAY Ot Z86.010 PERSONAL HISTORY OF COLONIC POLYPS 11/15/2018 DEMETRIO KAY Ot Z86.19 PERSONAL HISTORY OF OTHER INFECTIOUS AND 11/15/2018 DEMETRIO KAY Ot Z87.19 PERSONAL HISTORY OF OTHER DISEASES OF TH 11/15/2018 MARIAM KAYIS Ot Z87.440 PERSONAL HISTORY OF URINARY (TRACT) INFE 11/15/2018 MARIAM KAYIS Ot Z87.448 PERSONAL HISTORY OF OTHER DISEASES OF UR 11/15/2018 MARIAM KAYIS Ot Z88.0 ALLERGY STATUS TO PENICILLIN 11/15/2018 ELIZA DEMETRIO Ot Z88.1 ALLERGY STATUS TO OTHER ANTIBIOTIC AGENT 11/15/2018 ELIZA DEMETRIO Ot Z88.8 ALLERGY STATUS TO OTH DRUG/MEDS/BIOL SUB 11/15/2018 MARIAM KAYIS Ot Z90.49 ACQUIRED ABSENCE OF OTHER SPECIFIED PART 11/15/2018 ELIZA DEMETRIO Ot Z90.5 ACQUIRED ABSENCE OF KIDNEY 11/15/2018 MARIAM KAYIS Ot Z90.710 ACQUIRED ABSENCE OF BOTH CERVIX AND UTER 11/15/2018 ELIZA DEMETRIO Ot Z90.89 ACQUIRED ABSENCE OF OTHER ORGANS 11/15/2018 MARIAM KAYIS Ot Z98.890 OTHER SPECIFIED POSTPROCEDURAL STATES 11/20/2018 DELMAN DO, LINDSEY B Ot R10.3 2 LEFT LOWER QUADRANT PAIN 11/20/2018 DELMAN DO, LINDSEY B Ot Z90.5 ACQUIRED ABSENCE OF KIDNEY 11/20/2018 DELMAN DO, LINDSEY B Ot Z90.8 9 ACQUIRED ABSENCE OF OTHER ORGANS 12/09/2018 DELMAN DO, LINDSEY B Ot R10.3 2 LEFT LOWER QUADRANT PAIN 12/09/2018 DELMAN DO, LINDSEY B Ot Z90.5 ACQUIRED ABSENCE OF KIDNEY 12/09/2018 DELMAN DO, LINDSEY B Ot Z90.8 9 ACQUIRED ABSENCE OF OTHER ORGANS 12/10/2018 MAKAYLA HAWKINS MD J Ot E66. 9 OBESITY, UNSPECIFIED 12/10/2018 MAKAYLA HAWKINS MD J Ot F32. 9 MAJOR DEPRESSIVE DISORDER, SINGLE EPISOD 12/10/2018 MAKAYLA HAWKINS MD J Ot F41. 9 ANXIETY DISORDER, UNSPECIFIED 12/10/2018 MAKAYLA HAWKINS MD J Ot G43.909 MIGRAINE, UNSP, NOT INTRACTABLE, WITHOUT 12/10/2018 MAKAYLA HAWKINS MD J Ot J45.909 UNSPECIFIED ASTHMA, UNCOMPLICATED 12/10/2018 MAKAYLA HAWKINS MD Ot K29. 70 GASTRITIS, UNSPECIFIED, WITHOUT BLEEDING 12/10/2018 MAKAYLA HAWKINS MD Ot K59. 00 CONSTIPATION, UNSPECIFIED 12/10/2018 MAKAYLA HAWKINS MD Ot R10. 13 EPIGASTRIC PAIN 12/10/2018 MAKAYLA HAWKINS MD Ot Z79. 52 [facility] (CURRENT) USE OF SYSTEMIC STER 12/10/2018 MAKAYLA HAWKINS MD Ot Z82. 49 FAMILY HX OF ISCHEM HEART DIS AND OTH DI 12/10/2018 MAKAYLA HAWKINS MD Ot Z85.528 PERSONAL HISTORY OF OTHER MALIGNANT NEOP 12/10/2018 MAKAYLA HAWKINS MD Ot Z86.010 PERSONAL HISTORY OF COLONIC POLYPS 12/10/2018 MAKAYLA HAWKINS MD Ot Z87. 19 PERSONAL HISTORY OF OTHER DISEASES OF TH 12/10/2018 MAKAYLA HAWKINS MD Ot Z87.440 PERSONAL HISTORY OF URINARY (TRACT) INFE 12/10/2018 MAKAYLA HAWKINS MD Ot Z88. 0 ALLERGY STATUS TO PENICILLIN 12/10/2018 MAKAYLA HAWKINS MD Ot Z88. 1 ALLERGY STATUS TO OTHER ANTIBIOTIC AGENT 12/10/2018 MAKAYLA HAWKINS MD Ot Z88. 5 ALLERGY STATUS TO NARCOTIC AGENT STATUS 12/10/2018 MAKAYLA HAWKINS MD Ot Z88. 8 ALLERGY STATUS TO OT DRUG/MEDS/BIOL SUB 12/10/2018 MAKAYLA HAWKINS MD Ot Z90. 49 ACQUIRED ABSENCE OF OTHER SPECIFIED PART 12/10/2018 MAKAYLA HAWKINS MD Ot Z90. 5 ACQUIRED ABSENCE OF KIDNEY 12/10/2018 MAKAYLA HAWKINS MD Ot Z90.710 ACQUIRED ABSENCE OF BOTH CERVIX AND UTER 12/10/2018 MAKAYLA HAWKINS MD Ot Z90. 89 ACQUIRED ABSENCE OF OTHER ORGANS 12/10/2018 MAKAYLA HAWKINS MD Ot Z98.890 OTHER SPECIFIED POSTPROCEDURAL STATES 12/12/2018 MAKAYLA HAWKINS MD Ot E66. 9 OBESITY, UNSPECIFIED 12/12/2018 MAKAYLA HAWKINS MD Ot F32. 9 MAJOR DEPRESSIVE DISORDER, SINGLE EPISOD 12/12/2018 MAKAYLA HWAKINS MD Ot F41. 9 ANXIETY DISORDER, UNSPECIFIED 12/12/2018 MAKAYLA HAWKINS MD Ot G43.909 MIGRAINE, UNSP, NOT INTRACTABLE, WITHOUT 12/12/2018 MAKAYLA HAWKINS MD Ot J45.909 UNSPECIFIED ASTHMA, UNCOMPLICATED 12/12/2018 MAKAYLA HAWKINS MD Ot K29. 70 GASTRITIS, UNSPECIFIED, WITHOUT BLEEDING 12/12/2018 MAKAYLA HAWKINS MD Ot K59. 00 CONSTIPATION, UNSPECIFIED 12/12/2018 MAKAYLA HAWKINS MD Ot R10. 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 49 FAMILY HX OF ISCHEM HEART DIS AND OTH DI 12/12/2018 MAKAYLA HAWKINS MD Ot Z85.528 PERSONAL HISTORY OF OTHER MALIGNANT NEOP 12/12/2018 MAKAYLA HAWKINS MD Ot Z86.010 PERSONAL HISTORY OF COLONIC POLYPS 12/12/2018 MAKAYLA HAWKINS MD Ot Z87. 19 PERSONAL HISTORY OF OTHER DISEASES OF TH 12/12/2018 MAKAYLA HAWKINS MD Ot Z87.440 PERSONAL HISTORY OF URINARY (TRACT) INFE 12/12/2018 MAKAYLA HAWKINS MD Ot Z88. 0 ALLERGY STATUS TO PENICILLIN 12/12/2018 MAKAYLA HAWKINS MD Ot Z88. 1 ALLERGY STATUS TO OTHER ANTIBIOTIC AGENT 12/12/2018 MAKAYLA HAWKINS MD Ot Z88. 5 ALLERGY STATUS TO NARCOTIC AGENT STATUS 12/12/2018 MAKAYLA HAWKINS MD Ot Z88. 8 ALLERGY STATUS TO OT DRUG/MEDS/BIOL SUB 12/12/2018 MAKAYLA HAWKINS MD Ot Z90. 49 ACQUIRED ABSENCE OF OTHER SPECIFIED PART 12/12/2018 MAKAYLA HAWKINS MD Ot Z90. 5 ACQUIRED ABSENCE OF KIDNEY 12/12/2018 MAKAYLA HAWKINS MD Ot Z90.710 ACQUIRED ABSENCE OF BOTH CERVIX AND UTER 12/12/2018 MAKAYLA HAWKINS MD Ot Z90. 89 ACQUIRED ABSENCE OF OTHER ORGANS 12/12/2018 MAKAYLA HAWKINS MD Ot Z98.890 OTHER SPECIFIED POSTPROCEDURAL STATES 01/07/2019 GEORGES FINN APRN Ot E66 .9 OBESITY, UNSPECIFIED 01/07/2019 GEORGES FINN APRN Ot F32 .9 MAJOR DEPRESSIVE DISORDER, SINGLE EPISOD 01/07/2019 GEORGES FINN APRN Ot F41 .9 ANXIETY DISORDER, UNSPECIFIED 01/07/2019 GEORGES FINN APRN Ot G43.909 MIGRAINE, UNSP, NOT INTRACTABLE, WITHOUT 01/07/2019 GEORGES FINN APRN Ot G89.29 OTHER CHRONIC PAIN 01/07/2019 GEORGES FINN APRN Ot I10 ESSENTIAL (PRIMARY) HYPERTENSION 01/07/2019 GEORGES FINN APRN Ot J45.909 UNSPECIFIED ASTHMA, UNCOMPLICATED 01/07/2019 GEORGES FINN APRN Ot K86 .1 OTHER CHRONIC PANCREATITIS 01/07/2019 GEORGES FINN APRN Ot R10.32 LEFT LOWER QUADRANT PAIN 01/07/2019 GEORGES FINN APRN Ot Z82.49 FAMILY HX OF ISCHEM HEART DIS AND OTH DI 01/07/2019 GEORGES FINN APRN Ot Z85.528 PERSONAL HISTORY OF OTHER MALIGNANT NEOP 01/07/2019 GEORGES FINN APRN Ot Z86.010 PERSONAL HISTORY OF COLONIC POLYPS 01/07/2019 GEORGES FINN APRN Ot Z87.440 PERSONAL HISTORY OF URINARY (TRACT) INFE 01/07/2019 GEORGES FINN APRN Ot Z88 .0 ALLERGY STATUS TO PENICILLIN 01/07/2019 GEORGES FINN APRN Ot Z88 .1 ALLERGY STATUS TO OTHER ANTIBIOTIC AGENT 01/07/2019 GEORGES FINN APRN Ot Z88 .5 ALLERGY STATUS TO NARCOTIC AGENT STATUS 01/07/2019 GEORGES FINN APRN Ot Z90.49 ACQUIRED ABSENCE OF OTHER SPECIFIED PART 01/07/2019 GEORGES FINN APRN Ot Z90.710 ACQUIRED ABSENCE OF BOTH CERVIX AND UTER 01/07/2019 GEORGES FINN APRN Ot Z90.89 ACQUIRED ABSENCE OF OTHER ORGANS 01/10/2019 KIARA MORRISON Ot E66.9 OBESITY, UNSPECIFIED 01/10/2019 KIARA MORRISON Ot F32.9 MAJOR DEPRESSIVE DISORDER, SINGLE EPISOD 01/10/2019 KIARA MORRISON Ot F41.9 ANXIETY DISORDER, UNSPECIFIED 01/10/2019 KIARA MORRISON Ot G43.909 MIGRAINE, UNSP, NOT INTRACTABLE, WITHOUT 01/10/2019 KIARA MORRISON Ot I 10 ESSENTIAL (PRIMARY) HYPERTENSION 01/10/2019 KIAAR MORRISON Ot J45.909 UNSPECIFIED ASTHMA, UNCOMPLICATED 01/10/2019 KIARA MORRISON Ot M79.605 PAIN IN LEFT LEG 01/10/2019 KIARA MORRISON Ot R60.0 LOCALIZED EDEMA 01/10/2019 KIARA MORRISON Ot Z79.52 [facility] (CURRENT) USE OF SYSTEMIC STER 01/10/2019 KIARA MORRISON Ot Z80.9 FAMILY HISTORY OF MALIGNANT NEOPLASM, UN 01/10/2019 KIARA MORRISON Ot Z82.49 FAMILY HX OF ISCHEM HEART DIS AND OTH DI 01/10/2019 KIARA MORRISON Ot Z85.528 PERSONAL HISTORY OF OTHER MALIGNANT NEOP 01/10/2019 KIARA MORRISON Ot Z87.19 PERSONAL HISTORY OF OTHER DISEASES OF TH 01/10/2019 KIARA MORRISON Ot Z88.0 ALLERGY STATUS TO PENICILLIN 01/10/2019 KIARA MORRISON Ot Z88.1 ALLERGY STATUS TO OTHER ANTIBIOTIC AGENT 01/10/2019 KIARA MORRISON Ot Z88.5 ALLERGY STATUS TO NARCOTIC AGENT STATUS 01/10/2019 KIARA MORRISON Ot Z90.49 ACQUIRED ABSENCE OF OTHER SPECIFIED PART 01/10/2019 KIARA MORRISON Ot Z90.5 ACQUIRED ABSENCE OF KIDNEY 01/10/2019 KIARA MORRISON Ot Z90.710 ACQUIRED ABSENCE OF BOTH CERVIX AND UTER 01/10/2019 KIARA MORRISON Ot Z90.89 ACQUIRED ABSENCE OF OTHER ORGANS 01/10/2019 KIARA MORRISON Ot Z98.890 OTHER SPECIFIED POSTPROCEDURAL STATES 01/13/2019 GEORGES FINN APRN Ot E66 .9 OBESITY, UNSPECIFIED 01/13/2019 GEORGES FINN APRN Ot F32 .9 MAJOR DEPRESSIVE DISORDER, SINGLE EPISOD 01/13/2019 GEORGES FINN APRN Ot F41 .9 ANXIETY DISORDER, UNSPECIFIED 01/13/2019 GEORGES FINN APRN Ot G43.909 MIGRAINE, UNSP, NOT INTRACTABLE, WITHOUT 01/13/2019 GEORGES FINN APRN Ot G89.29 OTHER CHRONIC PAIN 01/13/2019 GEORGES FINN APRN Ot I10 ESSENTIAL (PRIMARY) HYPERTENSION 01/13/2019 GEORGES FINN APRN Ot J45.909 UNSPECIFIED ASTHMA, UNCOMPLICATED 01/13/2019 GEORGES FINN APRN Ot K86 .1 OTHER CHRONIC PANCREATITIS 01/13/2019 GEORGES FINN APRN Ot R10.32 LEFT LOWER QUADRANT PAIN 01/13/2019 GEORGES FINN APRN Ot Z82.49 FAMILY HX OF ISCHEM HEART DIS AND OTH DI 01/13/2019 GEORGES FINN APRN Ot Z85.528 PERSONAL HISTORY OF OTHER MALIGNANT NEOP 01/13/2019 GEORGES FINN APRN Ot Z86.010 PERSONAL HISTORY OF COLONIC POLYPS 01/13/2019 GEORGES FINN APRN Ot Z87.440 PERSONAL HISTORY OF URINARY (TRACT) INFE 01/13/2019 GEORGES FINN APRN Ot Z88 .0 ALLERGY STATUS TO PENICILLIN 01/13/2019 GEORGES FINN APRN Ot Z88 .1 ALLERGY STATUS TO OTHER ANTIBIOTIC AGENT 01/13/2019 GEORGES FINN APRN Ot Z88 .5 ALLERGY STATUS TO NARCOTIC AGENT STATUS 01/13/2019 GEORGES FINN APRN Ot Z90.49 ACQUIRED ABSENCE OF OTHER SPECIFIED PART 01/13/2019 GEORGES FINN APRN Ot Z90.710 ACQUIRED ABSENCE OF BOTH CERVIX AND UTER 01/13/2019 GEORGES FINN ASSURANCE ENGINEER Ot Z90.89 ACQUIRED ABSENCE OF OTHER ORGANS 01/14/2019 KIARA MORRISON Ot E66.9 OBESITY, UNSPECIFIED 01/14/2019 KIARA MORRISON Ot F32.9 MAJOR DEPRESSIVE DISORDER, SINGLE EPISOD 01/14/2019 KIARA MORRISON Ot F41.9 ANXIETY DISORDER, UNSPECIFIED 01/14/2019 KIARA MORRISON Ot G43.909 MIGRAINE, UNSP, NOT INTRACTABLE, WITHOUT 01/14/2019 KIARA MORRISON Ot I 10 ESSENTIAL (PRIMARY) HYPERTENSION 01/14/2019 KIARA MORRISON Ot J45.909 UNSPECIFIED ASTHMA, UNCOMPLICATED 01/14/2019 KIARA MORRISON Ot M79.605 PAIN IN LEFT LEG 01/14/2019 KIARA MORRISON Ot R60.0 LOCALIZED EDEMA 01/14/2019 KIARA MORRISON Ot Z79.52 [facility]FP (CURRENT) USE OF SYSTEMIC STER 01/14/2019 KIARA MORRISON Ot Z80.9 FAMILY HISTORY OF MALIGNANT NEOPLASM, UN 01/14/2019 KIARA MORRISON Ot Z82.49 FAMILY HX OF ISCHEM HEART DIS AND OTH DI 01/14/2019 KIARA MORRISON Ot Z85.528 PERSONAL HISTORY OF OTHER MALIGNANT NEOP 01/14/2019 KIARA MORRISON Ot Z87.19 PERSONAL HISTORY OF OTHER DISEASES OF TH 01/14/2019 KIARA MORRISON Ot Z88.0 ALLERGY STATUS TO PENICILLIN 01/14/2019 KIARA MORRISON Ot Z88.1 ALLERGY STATUS TO OTHER ANTIBIOTIC AGENT 01/14/2019 KIARA MORRISON Ot Z88.5 ALLERGY STATUS TO NARCOTIC AGENT STATUS 01/14/2019 KIARA MORRISON Ot Z90.49 ACQUIRED ABSENCE OF OTHER SPECIFIED PART 01/14/2019 KIARA MORRISON Ot Z90.5 ACQUIRED ABSENCE OF KIDNEY 01/14/2019 KIARA MRORISON Ot Z90.710 ACQUIRED ABSENCE OF BOTH CERVIX AND UTER 01/14/2019 KIARA MORRISON Ot Z90.89 ACQUIRED ABSENCE OF OTHER ORGANS 01/14/2019 KIARA MORRISON Ot Z98.890 OTHER SPECIFIED POSTPROCEDURAL STATES 01/19/2019 KIARA MORRISON Ot R22.42 LOCALIZED SWELLING, MASS AND LUMP, LEFT 01/19/2019 KIARA MORRISON Ot R22.42 LOCALIZED SWELLING, MASS AND LUMP, LEFT 01/21/2019 KIARA MORRISON Ot R22.42 LOCALIZED SWELLING, MASS AND LUMP, LEFT 01/23/2019 KIARA MORRISON Ot R22.42 LOCALIZED SWELLING, MASS AND LUMP, LEFT 01/23/2019 [place]I [place], CARMEN Christie Ot K76 .0 FATTY (CHANGE OF) LIVER, NOT ELSEWHERE C 01/23/2019 CARMEN GIBBS MD Ot R94 .5 ABNORMAL RESULTS OF LIVER FUNCTION STUDI 01/26/2019 DEMETRIO KAY Ot E66.9 OBESITY, UNSPECIFIED 01/26/2019 DEMETRIO KAY Ot F32.9 MAJOR DEPRESSIVE DISORDER, SINGLE EPISOD 01/26/2019 DEMETRIO KAY Ot F41.9 ANXIETY DISORDER, UNSPECIFIED 01/26/2019 DEMETRIO KAY Ot G43.909 MIGRAINE, UNSP, NOT INTRACTABLE, WITHOUT 01/26/2019 DEMETRIO KAY Ot I10 ESSENTIAL (PRIMARY) HYPERTENSION 01/26/2019 DEMETRIO KAY Ot J02.9 ACUTE PHARYNGITIS, UNSPECIFIED 01/26/2019 DEMETRIO KAY Ot J45.909 UNSPECIFIED ASTHMA, UNCOMPLICATED 01/26/2019 DEMETRIO KAY Ot K86.1 OTHER CHRONIC PANCREATITIS 01/26/2019 DEMETRIO KAY Ot N39.0 URINARY TRACT INFECTION, SITE NOT SPECIF 01/26/2019 DEMETRIO KAY Ot R10.9 UNSPECIFIED ABDOMINAL PAIN 01/26/2019 DEMETRIO KAY Ot Z82.49 FAMILY HX OF ISCHEM HEART DIS AND OTH DI 01/26/2019 DEMETRIO KAY Ot Z85.528 PERSONAL HISTORY OF OTHER MALIGNANT NEOP 01/26/2019 DEMETRIO KAY Ot Z86.010 PERSONAL HISTORY OF COLONIC POLYPS 01/26/2019 MARIAM KAYIS Ot Z87.442 PERSONAL HISTORY OF URINARY CALCULI 01/26/2019 DEMETRIO KAY Ot Z88.0 ALLERGY STATUS TO PENICILLIN 01/26/2019 MARIAM KAYIS Ot Z88.1 ALLERGY STATUS TO OTHER ANTIBIOTIC AGENT 01/26/2019 DEMETRIO KAY Ot Z88.6 ALLERGY STATUS TO ANALGESIC AGENT STATUS 01/26/2019 DEMETRIO KAY Ot Z88.8 ALLERGY STATUS TO OTH DRUG/MEDS/BIOL SUB 01/26/2019 DEMETRIO KAY Ot Z90.49 ACQUIRED ABSENCE OF OTHER SPECIFIED PART 01/26/2019 DEMETRIO KAY Ot Z90.710 ACQUIRED ABSENCE OF BOTH CERVIX AND UTER 01/26/2019 MARIAM KAYIS Ot Z90.89 ACQUIRED ABSENCE OF OTHER ORGANS 01/29/2019 DEMETRIO KAY Ot E66.9 OBESITY, UNSPECIFIED 01/29/2019 DEMETRIO KAY Ot F32.9 MAJOR DEPRESSIVE DISORDER, SINGLE EPISOD 01/29/2019 DEMETRIO KAY Ot F41.9 ANXIETY DISORDER, UNSPECIFIED 01/29/2019 DEMETRIO KAY Ot G43.909 MIGRAINE, UNSP, NOT INTRACTABLE, WITHOUT 01/29/2019 DEMETRIO KAY Ot I10 ESSENTIAL (PRIMARY) HYPERTENSION 01/29/2019 DEMETRIO KAY Ot J02.9 ACUTE PHARYNGITIS, UNSPECIFIED 01/29/2019 DEMETRIO KAY Ot J45.909 UNSPECIFIED ASTHMA, UNCOMPLICATED 01/29/2019 DEMETRIO KAY Ot K86.1 OTHER CHRONIC PANCREATITIS 01/29/2019 DEMETRIO KAY Ot N39.0 URINARY TRACT INFECTION, SITE NOT SPECIF 01/29/2019 DEMETRIO KAY Ot R10.9 UNSPECIFIED ABDOMINAL PAIN 01/29/2019 DEMETRIO KAY Ot Z82.49 FAMILY HX OF ISCHEM HEART DIS AND OTH DI 01/29/2019 DEMETRIO KAY Ot Z85.528 PERSONAL HISTORY OF OTHER MALIGNANT NEOP 01/29/2019 DEMETRIO KAY Ot Z86.010 PERSONAL HISTORY OF COLONIC POLYPS 01/29/2019 DEMETRIO KAY Ot Z87.442 PERSONAL HISTORY OF URINARY CALCULI 01/29/2019 DEMETRIO KAY Ot Z88.0 ALLERGY STATUS TO PENICILLIN 01/29/2019 DEMETRIO KAY Ot Z88.1 ALLERGY STATUS TO OTHER ANTIBIOTIC AGENT 01/29/2019 DEMETRIO KAY Ot Z88.6 ALLERGY STATUS TO ANALGESIC AGENT STATUS 01/29/2019 DEMETRIO KAY Ot Z88.8 ALLERGY STATUS TO OT DRUG/MEDS/BIOL SUB 01/29/2019 DEMETRIO KAY Ot Z90.49 ACQUIRED ABSENCE OF OTHER SPECIFIED PART 01/29/2019 DEMETRIO KAY Ot Z90.710 ACQUIRED ABSENCE OF BOTH CERVIX AND UTER 01/29/2019 DEMETRIO KAY Ot Z90.89 ACQUIRED ABSENCE OF OTHER ORGANS 01/31/2019 SHANKAR RONNI GAMINGA K Ot E66.9 OBESITY, UNSPECIFIED 01/31/2019 RONNI CHAPARRO DOA K Ot F17.210 NICOTINE DEPENDENCE, CIGARETTES, UNCOMPL 01/31/2019 YAN CHAPARRO DO Ot F32.9 MAJOR DEPRESSIVE DISORDER, SINGLE EPISOD 01/31/2019 YAN CHAPARRO DO Ot F41.9 ANXIETY DISORDER, UNSPECIFIED 01/31/2019 YAN CHAPARRO DO Ot G43.909 MIGRAINE, UNSP, NOT INTRACTABLE, WITHOUT 01/31/2019 SHANKAR YAN GAMING Ot I10 ESSENTIAL (PRIMARY) HYPERTENSION 01/31/2019 [facility] ACUTE PHARYNGITIS, UNSPECIFIED 01/31/2019 [facility] YAN K Ot J45.909 UNSPECIFIED ASTHMA, UNCOMPLICATED 01/31/2019 [facility] YAN K Ot K86.1 OTHER CHRONIC PANCREATITIS 01/31/2019 [facility] R05 COUGH 01/31/2019 [facility] Ot Z68.42 BODY MASS INDEX (BMI) 45.0-49.9, ADULT 01/31/2019 [facility] YAN K Ot Z82.49 FAMILY HX OF ISCHEM HEART DIS AND OTH DI 01/31/2019 [facility] Ot Z85.528 PERSONAL HISTORY OF OTHER MALIGNANT NEOP 01/31/2019 [facility] Ot Z86.010 PERSONAL HISTORY OF COLONIC POLYPS 01/31/2019 [facility] Ot Z87.440 PERSONAL HISTORY OF URINARY (TRACT) INFE 01/31/2019 [facility] Z88.0 ALLERGY STATUS TO PENICILLIN 01/31/2019 [facility] Z88.1 ALLERGY STATUS TO OTHER ANTIBIOTIC AGENT 01/31/2019 [facility] Z88.5 ALLERGY STATUS TO NARCOTIC AGENT STATUS 01/31/2019 [facility] Ot Z90.49 ACQUIRED ABSENCE OF OTHER SPECIFIED PART 01/31/2019 [facility] Ot Z90.710 ACQUIRED ABSENCE OF BOTH CERVIX AND UTER 01/31/2019 [facility] Z90.89 ACQUIRED ABSENCE OF OTHER ORGANS 02/01/2019 KIARA MORRISON Ot R22.42 LOCALIZED SWELLING, MASS AND LUMP, LEFT 02/03/2019 SHANKAR YAN GAMING Ot E66.9 OBESITY, UNSPECIFIED 02/03/2019 [facility] Ot F17.210 NICOTINE DEPENDENCE, CIGARETTES, UNCOMPL 02/03/2019 [place] YAN GAMING Ot F32.9 MAJOR DEPRESSIVE DISORDER, SINGLE EPISOD 02/03/2019 [facility] F41.9 ANXIETY DISORDER, UNSPECIFIED 02/03/2019 [facility] Ot G43.909 MIGRAINE, UNSP, NOT INTRACTABLE, WITHOUT 02/03/2019 SHANKAR DO YAN K Ot I10 ESSENTIAL (PRIMARY) HYPERTENSION 02/03/2019 [facility] K Ot J02.9 ACUTE PHARYNGITIS, UNSPECIFIED 02/03/2019 [facility] YAN K Ot J45.909 UNSPECIFIED ASTHMA, UNCOMPLICATED 02/03/2019 [facility] YAN Vickey Ot K86.1 OTHER CHRONIC PANCREATITIS 02/03/2019 [facility] R[facility] COUGH 02/03/2019 [facility] K Ot Z68.42 BODY MASS INDEX (BMI) 45.0-49.9, ADULT 02/03/2019 SHANKAR DO YAN K Ot Z82.49 FAMILY HX OF ISCHEM HEART DIS AND OTH DI 02/03/2019 [facility] YAN K Ot Z85.528 PERSONAL HISTORY OF OTHER MALIGNANT NEOP 02/03/2019 [facility] YAN K Ot Z86.010 PERSONAL HISTORY OF COLONIC POLYPS 02/03/2019 [facility] Z87.440 PERSONAL HISTORY OF URINARY (TRACT) INFE 02/03/2019 [facility] YAN K Ot Z88.0 ALLERGY STATUS TO PENICILLIN 02/03/2019 [facility] YAN K Ot Z88.1 ALLERGY STATUS TO OTHER ANTIBIOTIC AGENT 02/03/2019 [facility] YAN K Ot Z88.5 ALLERGY STATUS TO NARCOTIC AGENT STATUS 02/03/2019 [facility] YAN K Ot Z90.49 ACQUIRED ABSENCE OF OTHER SPECIFIED PART 02/03/2019 [facility] YAN K Ot Z90.710 ACQUIRED ABSENCE OF BOTH CERVIX AND UTER 02/03/2019 [facility] YAN K Ot Z90.89 ACQUIRED ABSENCE OF OTHER ORGANS 02/03/2019 [facility] YAN K Ot E66.9 OBESITY, UNSPECIFIED 02/03/2019 [facility] YAN K Ot F17.210 NICOTINE DEPENDENCE, CIGARETTES, UNCOMPL 02/03/2019 [facility] YAN K Ot F32.9 MAJOR DEPRESSIVE DISORDER, SINGLE EPISOD 02/03/2019 [facility] F41.9 ANXIETY DISORDER, UNSPECIFIED 02/03/2019 [facility] YAN K Ot G43.909 MIGRAINE, UNSP, NOT INTRACTABLE, WITHOUT 02/03/2019 [facility] Y[facility] Vickey Ot I10 ESSENTIAL (PRIMARY) HYPERTENSION 02/03/2019 [place] Vickey Ot J02.9 ACUTE PHARYNGITIS, UNSPECIFIED 02/03/2019 [facility] Y[facility] Vickey Ot J45.909 UNSPECIFIED ASTHMA, UNCOMPLICATED 02/03/2019 [place] [facility] Vickey Ot K86.1 OTHER CHRONIC PANCREATITIS 02/03/2019 [place] [facility] Vickey Ot R05 COUGH 02/03/2019 [facility] YAN Vickey Ot Z68.42 BODY MASS INDEX (BMI) 45.0-49.9, ADULT 02/03/2019 [facility] Y[facility] Vickey Ot Z82.49 FAMILY HX OF ISCHEM HEART DIS AND OTH DI 02/03/2019 [facility] Y[facility] Vickey Ot Z85.528 PERSONAL HISTORY OF OTHER MALIGNANT NEOP 02/03/2019 [facility] Vickey Ot Z86.010 PERSONAL HISTORY OF COLONIC POLYPS 02/03/2019 [facility] Vickey Ot Z87.440 PERSONAL HISTORY OF URINARY (TRACT) INFE 02/03/2019 [facility] Vickey Ot Z88.0 ALLERGY STATUS TO PENICILLIN 02/03/2019 [facility] Vickey Ot Z88.1 ALLERGY STATUS TO OTHER ANTIBIOTIC AGENT 02/03/2019 [facility] Vickey Ot Z88.5 ALLERGY STATUS TO NARCOTIC AGENT STATUS 02/03/2019 [facility] Vickey Ot Z90.49 ACQUIRED ABSENCE OF OTHER SPECIFIED PART 02/03/2019 [facility] Vickey Ot Z90.710 ACQUIRED ABSENCE OF BOTH CERVIX AND UTER 02/03/2019 [place] [facility] K Ot Z90.89 ACQUIRED ABSENCE OF OTHER ORGANS 02/11/2019 DAVID GEOVANI SENIOR RELIABILITY ENGINEER Ot E66.9 OBESITY, UNSPECIFIED 02/11/2019 DAVID GEOVANI SENIOR RELIABILITY ENGINEER Ot F32.9 MAJOR DEPRESSIVE DISORDER, SINGLE EPISOD 02/11/2019 DAVID, GEOVANI SENIOR RELIABILITY ENGINEER Ot F41.9 ANXIETY DISORDER, UNSPECIFIED 02/11/2019 DAVID, GEOVANI SENIOR RELIABILITY ENGINEER Ot G43.909 MIGRAINE, UNSP, NOT INTRACTABLE, WITHOUT 02/11/2019 DAVID, GEOVANI SENIOR RELIABILITY ENGINEER Ot I10 ESSENTIAL (PRIMARY) HYPERTENSION 02/11/2019 DAVID, GEOVANI SENIOR RELIABILITY ENGINEER Ot J45.909 UNSPECIFIED ASTHMA, UNCOMPLICATED 02/11/2019 DAVIDGEOVANI Stephenson SENIOR RELIABILITY ENGINEER Ot R10.32 LEFT LOWER QUADRANT PAIN 02/11/2019 DAVID, GEOVANI SENIOR RELIABILITY ENGINEER Ot Z79.52 MCFP (CURRENT) USE OF SYSTEMIC STER 02/11/2019 DAVIDGEOVANI Stephenson SENIOR RELIABILITY ENGINEER Ot Z82.49 FAMILY HX OF ISCHEM HEART DIS AND OTH DI 02/11/2019 DAVIDGEOVANI Stephenson SENIOR RELIABILITY ENGINEER Ot Z85.528 PERSONAL HISTORY OF OTHER MALIGNANT NEOP 02/11/2019 DAVIDGEOVANI Stephenson SENIOR RELIABILITY ENGINEER Ot Z87.19 PERSONAL HISTORY OF OTHER DISEASES OF TH 02/11/2019 DAVIDGEOVANI Stephenson SENIOR RELIABILITY ENGINEER Ot Z87.440 PERSONAL HISTORY OF URINARY (TRACT) INFE 02/11/2019 DAVID GEOVANI SENIOR RELIABILITY ENGINEER Ot Z88.0 ALLERGY STATUS TO PENICILLIN 02/11/2019 DAVID, GEOVANI SENIOR RELIABILITY ENGINEER Ot Z88.1 ALLERGY STATUS TO OTHER ANTIBIOTIC AGENT 02/11/2019 DAVID, GEOVANI SENIOR RELIABILITY ENGINEER Ot Z88.5 ALLERGY STATUS TO NARCOTIC AGENT STATUS 02/11/2019 GEOVANI HERNANDEZ SENIOR RELIABILITY ENGINEER Ot Z90.49 ACQUIRED ABSENCE OF OTHER SPECIFIED PART 02/11/2019 DAVID, GEOVANI SENIOR RELIABILITY ENGINEER Ot Z90.5 ACQUIRED ABSENCE OF KIDNEY 02/11/2019 DAVID, GEOVANI SENIOR RELIABILITY ENGINEER Ot Z90.710 ACQUIRED ABSENCE OF BOTH CERVIX AND UTER 02/11/2019 DAVID GEOVANI SENIOR RELIABILITY ENGINEER Ot Z90.89 ACQUIRED ABSENCE OF OTHER ORGANS 02/11/2019 DAVID GEOVANI SENIOR RELIABILITY ENGINEER Ot Z98.890 OTHER SPECIFIED POSTPROCEDURAL STATES 02/13/2019 DAVID GEOVANI SENIOR RELIABILITY ENGINEER Ot E66.9 OBESITY, UNSPECIFIED 02/13/2019 DAVID GEOVANI SENIOR RELIABILITY ENGINEER Ot F32.9 MAJOR DEPRESSIVE DISORDER, SINGLE EPISOD 02/13/2019 DAVID GEOVANI SENIOR RELIABILITY ENGINEER Ot F41.9 ANXIETY DISORDER, UNSPECIFIED 02/13/2019 DAVID, GEOVANI SENIOR RELIABILITY ENGINEER Ot G43.909 MIGRAINE, UNSP, NOT INTRACTABLE, WITHOUT 02/13/2019 DAVID GEOVANI SENIOR RELIABILITY ENGINEER Ot I10 ESSENTIAL (PRIMARY) HYPERTENSION 02/13/2019 DAVID GEOVANI SENIOR RELIABILITY ENGINEER Ot J45.909 UNSPECIFIED ASTHMA, UNCOMPLICATED 02/13/2019 DAVID GEOVANI SENIOR RELIABILITY ENGINEER Ot R10.32 LEFT LOWER QUADRANT PAIN 02/13/2019 DAVID GEOVANI SENIOR RELIABILITY ENGINEER Ot 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 02/13/2019 DAVID, GEOVANI SENIOR RELIABILITY ENGINEER Ot Z82.49 FAMILY HX OF ISCHEM HEART DIS AND OTH DI 02/13/2019 DAVID, GEOVANI SENIOR RELIABILITY ENGINEER Ot Z85.528 PERSONAL HISTORY OF OTHER MALIGNANT NEOP 02/13/2019 DAVID GEOVANI SENIOR RELIABILITY ENGINEER Ot Z87.19 PERSONAL HISTORY OF OTHER DISEASES OF TH 02/13/2019 GEOVANI HERNANDEZ SENIOR RELIABILITY ENGINEER Ot Z87.440 PERSONAL HISTORY OF URINARY (TRACT) INFE 02/13/2019 DAVID, GEOVANI SENIOR RELIABILITY ENGINEER Ot Z88.0 ALLERGY STATUS TO PENICILLIN 02/13/2019 DAVID, GEOVANI SENIOR RELIABILITY ENGINEER Ot Z88.1 ALLERGY STATUS TO OTHER ANTIBIOTIC AGENT 02/13/2019 DAVID, GEOVANI SENIOR RELIABILITY ENGINEER Ot Z88.5 ALLERGY STATUS TO NARCOTIC AGENT STATUS 02/13/2019 DAVID, GEOVANI SENIOR RELIABILITY ENGINEER Ot Z90.49 ACQUIRED ABSENCE OF OTHER SPECIFIED PART 02/13/2019 DAVID, GEOVANI SENIOR RELIABILITY ENGINEER Ot Z90.5 ACQUIRED ABSENCE OF KIDNEY 02/13/2019 DAVID, GEOVANI SENIOR RELIABILITY ENGINEER Ot Z90.710 ACQUIRED ABSENCE OF BOTH CERVIX AND UTER 02/13/2019 DAVID, GEOVANI SENIOR RELIABILITY ENGINEER Ot Z90.89 ACQUIRED ABSENCE OF OTHER ORGANS 02/13/2019 DAVID, GEOVANI SENIOR RELIABILITY ENGINEER Ot Z98.890 OTHER SPECIFIED POSTPROCEDURAL STATES 02/17/2019 DAVID GEOVANI SENIOR RELIABILITY ENGINEER Ot E66.9 OBESITY, UNSPECIFIED 02/17/2019 DAVID, EGOVANI SENIOR RELIABILITY ENGINEER Ot F32.9 MAJOR DEPRESSIVE DISORDER, SINGLE EPISOD 02/17/2019 DAVID, GEOVANI SENIOR RELIABILITY ENGINEER Ot F41.9 ANXIETY DISORDER, UNSPECIFIED 02/17/2019 DAVID, GEOVANI SENIOR RELIABILITY ENGINEER Ot G43.909 MIGRAINE, UNSP, NOT INTRACTABLE, WITHOUT 02/17/2019 DAVID GEOVANI SENIOR RELIABILITY ENGINEER Ot I10 ESSENTIAL (PRIMARY) HYPERTENSION 02/17/2019 DAVID, GEOVANI SENIOR RELIABILITY ENGINEER Ot J45.909 UNSPECIFIED ASTHMA, UNCOMPLICATED 02/17/2019 DAVID, GEOVANI SENIOR RELIABILITY ENGINEER Ot R10.32 LEFT LOWER QUADRANT PAIN 02/17/2019 DAVID, GEOVANI SENIOR RELIABILITY ENGINEER Ot 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 02/17/2019 DAVID, GEOVANI SENIOR RELIABILITY ENGINEER Ot Z82.49 FAMILY HX OF ISCHEM HEART DIS AND OTH DI 02/17/2019 DAVID GEOVANI SENIOR RELIABILITY ENGINEER Ot Z85.528 PERSONAL HISTORY OF OTHER MALIGNANT NEOP 02/17/2019 DAVID, GEOVANI SENIOR RELIABILITY ENGINEER Ot Z87.19 PERSONAL HISTORY OF OTHER DISEASES OF TH 02/17/2019 DAVID, GEOVANI SENIOR RELIABILITY ENGINEER Ot Z87.440 PERSONAL HISTORY OF URINARY (TRACT) INFE 02/17/2019 DAVID, GEOVANI SENIOR RELIABILITY ENGINEER Ot Z88.0 ALLERGY STATUS TO PENICILLIN 02/17/2019 DAVID, GEOVANI SENIOR RELIABILITY ENGINEER Ot Z88.1 ALLERGY STATUS TO OTHER ANTIBIOTIC AGENT 02/17/2019 DAVID, GEOVANI SENIOR RELIABILITY ENGINEER Ot Z88.5 ALLERGY STATUS TO NARCOTIC AGENT STATUS 02/17/2019 DAVID, GEOVANI SENIOR RELIABILITY ENGINEER Ot Z90.49 ACQUIRED ABSENCE OF OTHER SPECIFIED PART 02/17/2019 DAVID, GEOVANI SENIOR RELIABILITY ENGINEER Ot Z90.5 ACQUIRED ABSENCE OF KIDNEY 02/17/2019 DAVID, GEOVANI SENIOR RELIABILITY ENGINEER Ot Z90.710 ACQUIRED ABSENCE OF BOTH CERVIX AND UTER 02/17/2019 DAVID, GEOVANI SENIOR RELIABILITY ENGINEER Ot Z90.89 ACQUIRED ABSENCE OF OTHER ORGANS 02/17/2019 DAVID, GEOVANI SENIOR RELIABILITY ENGINEER Ot Z98.890 OTHER SPECIFIED POSTPROCEDURAL STATES 02/17/2019 [place], CARMEN Christie Ot K76 .0 FATTY (CHANGE OF) LIVER, NOT ELSEWHERE C 02/17/2019 CARMEN GBIBS MD Ot R94 .5 ABNORMAL RESULTS OF LIVER FUNCTION STUDI 02/17/2019 CARMEN GIBBS MD Ot G47.30 SLEEP APNEA, UNSPECIFIED 02/18/2019 CARMEN GIBBS MD Ot G47.30 SLEEP APNEA, UNSPECIFIED 02/19/2019 CARMEN GIBBS MD Ot G47.30 SLEEP APNEA, UNSPECIFIED 03/06/2019 GEORGES FINN APRN Ot F32 .9 MAJOR DEPRESSIVE DISORDER, SINGLE EPISOD 03/06/2019 GEORGES FINN APRN Ot F41 .9 ANXIETY DISORDER, UNSPECIFIED 03/06/2019 GEORGES FINN APRN Ot G43.909 MIGRAINE, UNSP, NOT INTRACTABLE, WITHOUT 03/06/2019 GEORGES FINN APRN Ot I10 ESSENTIAL (PRIMARY) HYPERTENSION 03/06/2019 GEORGES FINN APRN Ot J45.909 UNSPECIFIED ASTHMA, UNCOMPLICATED 03/06/2019 GEORGES FINN APRN Ot R10 .9 UNSPECIFIED ABDOMINAL PAIN 03/06/2019 GEORGES FINN APRN Ot 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 03/06/2019 GEORGES FINN APRN Ot Z82.49 FAMILY HX OF ISCHEM HEART DIS AND OTH DI 03/06/2019 GEORGES FINN APRN Ot Z85.528 PERSONAL HISTORY OF OTHER MALIGNANT NEOP 03/06/2019 GEORGES FINN APRN Ot Z87.19 PERSONAL HISTORY OF OTHER DISEASES OF TH 03/06/2019 GEORGES FINN APRN Ot Z87.440 PERSONAL HISTORY OF URINARY (TRACT) INFE 03/06/2019 GEORGES FINN APRN Ot Z88 .0 ALLERGY STATUS TO PENICILLIN 03/06/2019 GEORGES FINN APRN Ot Z88 .1 ALLERGY STATUS TO OTHER ANTIBIOTIC AGENT 03/06/2019 GEORGES FINN APRN Ot Z88 .5 ALLERGY STATUS TO NARCOTIC AGENT STATUS 03/06/2019 GEORGES FINN APRN Ot Z90.49 ACQUIRED ABSENCE OF OTHER SPECIFIED PART 03/06/2019 GEORGES FINN APRN Ot Z90 .5 ACQUIRED ABSENCE OF KIDNEY 03/06/2019 GEORGES FINN APRN Ot Z90.710 ACQUIRED ABSENCE OF BOTH CERVIX AND UTER 03/06/2019 GEORGES FINN APRN Ot Z90.89 ACQUIRED ABSENCE OF OTHER ORGANS 03/06/2019 GEORGES FINN APRN Ot Z98.890 OTHER SPECIFIED POSTPROCEDURAL STATES 03/09/2019 GEORGES FINN APRN Ot F32 .9 MAJOR DEPRESSIVE DISORDER, SINGLE EPISOD 03/09/2019 GEORGES FINN APRN Ot F41 .9 ANXIETY DISORDER, UNSPECIFIED 03/09/2019 GEORGES FINN APRN Ot G43.909 MIGRAINE, UNSP, NOT INTRACTABLE, WITHOUT 03/09/2019 GEORGES FINN APRN Ot I10 ESSENTIAL (PRIMARY) HYPERTENSION 03/09/2019 GEORGES FINN APRN Ot J45.909 UNSPECIFIED ASTHMA, UNCOMPLICATED 03/09/2019 GEORGES FINN APRN Ot R10 .9 UNSPECIFIED ABDOMINAL PAIN 03/09/2019 GEORGES FINN APRN Ot 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 03/09/2019 GEORGES FINN APRN Ot Z82.49 FAMILY HX OF ISCHEM HEART DIS AND OTH DI 03/09/2019 GEORGES FINN APRN Ot Z85.528 PERSONAL HISTORY OF OTHER MALIGNANT NEOP 03/09/2019 GEORGES FINN APRN Ot Z87.19 PERSONAL HISTORY OF OTHER DISEASES OF TH 03/09/2019 GEORGES FINN APRN Ot Z87.440 PERSONAL HISTORY OF URINARY (TRACT) INFE 03/09/2019 GEORGES FINN APRN Ot Z88 .0 ALLERGY STATUS TO PENICILLIN 03/09/2019 GEORGES FINN APRN Ot Z88 .1 ALLERGY STATUS TO OTHER ANTIBIOTIC AGENT 03/09/2019 GEORGES FINN APRN Ot Z88 .5 ALLERGY STATUS TO NARCOTIC AGENT STATUS 03/09/2019 GEORGES FINN APRN Ot Z90.49 ACQUIRED ABSENCE OF OTHER SPECIFIED PART 03/09/2019 GEORGES FINN APRN Ot Z90 .5 ACQUIRED ABSENCE OF KIDNEY 03/09/2019 GEORGES FINN APRN Ot Z90.710 ACQUIRED ABSENCE OF BOTH CERVIX AND UTER 03/09/2019 GEORGES FINN APRN Ot Z90.89 ACQUIRED ABSENCE OF OTHER ORGANS 03/09/2019 GEORGES FINN APRN Ot Z98.890 OTHER SPECIFIED POSTPROCEDURAL STATES 03/10/2019 GEORGES FINN APRN Ot F32 .9 MAJOR DEPRESSIVE DISORDER, SINGLE EPISOD 03/10/2019 GEORGES FINN APRN Ot F41 .9 ANXIETY DISORDER, UNSPECIFIED 03/10/2019 GEORGES FINN APRN Ot I10 ESSENTIAL (PRIMARY) HYPERTENSION 03/10/2019 GEORGES FINN APRN Ot J45.909 UNSPECIFIED ASTHMA, UNCOMPLICATED 03/10/2019 GEORGES FINN APRN Ot R51 HEADACHE 03/10/2019 GEORGES FINN APRN Ot Z79.52 MCFP (CURRENT) USE OF SYSTEMIC STER 03/10/2019 GEORGES FINN APRN Ot Z82.49 FAMILY HX OF ISCHEM HEART DIS AND OTH DI 03/10/2019 GEORGES FINN APRN Ot Z85.528 PERSONAL HISTORY OF OTHER MALIGNANT NEOP 03/10/2019 GEORGES FINN APRN Ot Z86.69 PERSONAL HISTORY OF DIS OF THE NERVOUS S 03/10/2019 GEORGES FINN APRN Ot Z87.440 PERSONAL HISTORY OF URINARY (TRACT) INFE 03/10/2019 GEORGES FINN APRN Ot Z87.891 PERSONAL HISTORY OF NICOTINE DEPENDENCE 03/10/2019 GEORGES FINN APRN Ot Z88 .0 ALLERGY STATUS TO PENICILLIN 03/10/2019 GEORGES FINN APRN Ot Z88 .1 ALLERGY STATUS TO OTHER ANTIBIOTIC AGENT 03/10/2019 GEORGES FINN APRN Ot Z88 .5 ALLERGY STATUS TO NARCOTIC AGENT STATUS 03/10/2019 GEORGES FINN APRN Ot Z90.49 ACQUIRED ABSENCE OF OTHER SPECIFIED PART 03/10/2019 GEORGES FINN APRN Ot Z90 .5 ACQUIRED ABSENCE OF KIDNEY 03/10/2019 GEORGES FINN APRN Ot Z90.710 ACQUIRED ABSENCE OF BOTH CERVIX AND UTER 03/10/2019 GEORGES FINN APRN Ot Z90.89 ACQUIRED ABSENCE OF OTHER ORGANS 03/12/2019 GEORGES FINN APRN Ot F32 .9 MAJOR DEPRESSIVE DISORDER, SINGLE EPISOD 03/12/2019 GEORGES FINN APRN Ot F41 .9 ANXIETY DISORDER, UNSPECIFIED 03/12/2019 GEORGES FINN APRN Ot I10 ESSENTIAL (PRIMARY) HYPERTENSION 03/12/2019 GEORGES FINN APRN Ot J45.909 UNSPECIFIED ASTHMA, UNCOMPLICATED 03/12/2019 GEORGES FINN APRN Ot R51 HEADACHE 03/12/2019 GEORGES FINN APRN Ot Z79.52 MCFP (CURRENT) USE OF SYSTEMIC STER 03/12/2019 GEORGES FINN APRN Ot Z82.49 FAMILY HX OF ISCHEM HEART DIS AND OTH DI 03/12/2019 GEORGES FINN APRN Ot Z85.528 PERSONAL HISTORY OF OTHER MALIGNANT NEOP 03/12/2019 GEORGES FINN APRN Ot Z86.69 PERSONAL HISTORY OF DIS OF THE NERVOUS S 03/12/2019 GEORGES FINN APRN Ot Z87.440 PERSONAL HISTORY OF URINARY (TRACT) INFE 03/12/2019 GEORGES FINN APRN Ot Z87.891 PERSONAL HISTORY OF NICOTINE DEPENDENCE 03/12/2019 GEORGES FINN APRN Ot Z88 .0 ALLERGY STATUS TO PENICILLIN 03/12/2019 GEORGES FINN APRN Ot Z88 .1 ALLERGY STATUS TO OTHER ANTIBIOTIC AGENT 03/12/2019 GEORGES FINN APRN Ot Z88 .5 ALLERGY STATUS TO NARCOTIC AGENT STATUS 03/12/2019 GEORGES FINN APRN Ot Z90.49 ACQUIRED ABSENCE OF OTHER SPECIFIED PART 03/12/2019 GEORGES FINN ASSURANCE ENGINEER Ot Z90 .5 ACQUIRED ABSENCE OF KIDNEY 03/12/2019 GEORGES FINN ASSURANCE ENGINEER Ot Z90.710 ACQUIRED ABSENCE OF BOTH CERVIX AND UTER 03/12/2019 GEOREGS FINN APRN Ot Z90.89 ACQUIRED ABSENCE OF OTHER ORGANS 03/22/2019 MAKAYLA HAWKINS MD Ot A08. 4 VIRAL INTESTINAL INFECTION, UNSPECIFIED 03/22/2019 MAKAYLA HAWKINS MD Ot E66. 9 OBESITY, UNSPECIFIED 03/22/2019 MAKAYLA HAWKINS MD Ot F32. 9 MAJOR DEPRESSIVE DISORDER, SINGLE EPISOD 03/22/2019 MAKAYLA HAWKINS MD Ot F41. 9 ANXIETY DISORDER, UNSPECIFIED 03/22/2019 MAKAYLA HAWKINS MD Ot G43.909 MIGRAINE, UNSP, NOT INTRACTABLE, WITHOUT 03/22/2019 MAKAYLA HAWKINS MD Ot I10 ESSENTIAL (PRIMARY) HYPERTENSION 03/22/2019 MAKAYLA HAWKINS MD Ot J45.909 UNSPECIFIED ASTHMA, UNCOMPLICATED 03/22/2019 MAKAYLA HAWKINS MD Ot R10. 9 UNSPECIFIED ABDOMINAL PAIN 03/22/2019 MAKAYLA HAWKINS MD Ot Z68. 42 BODY MASS INDEX (BMI) 45.0-49.9, ADULT 03/22/2019 MAKAYLA HAWKINS MD Ot Z79. 52 PATENT LAW SPECIALIST (CURRENT) USE OF SYSTEMIC STER 03/22/2019 MAKAYLA HAWKINS MD Ot Z82. 49 FAMILY HX OF ISCHEM HEART DIS AND OTH DI 03/22/2019 MAKAYLA HAWKINS MD Ot Z85.528 PERSONAL HISTORY OF OTHER MALIGNANT NEOP 03/22/2019 MAKAYLA HAWKINS MD Ot Z87. 19 PERSONAL HISTORY OF OTHER DISEASES OF TH 03/22/2019 MAKAYLA HAWKINS MD Ot Z87.440 PERSONAL HISTORY OF URINARY (TRACT) INFE 03/22/2019 MAKAYLA HAWKINS MD Ot Z88. 0 ALLERGY STATUS TO PENICILLIN 03/22/2019 MAKAYLA HAWKINS MD Ot Z88. 1 ALLERGY STATUS TO OTHER ANTIBIOTIC AGENT 03/22/2019 MAKALYA HAWKINS MD Ot Z88. 5 ALLERGY STATUS TO NARCOTIC AGENT STATUS 03/22/2019 MAKAYLA HAWKINS MD Ot Z90. 49 ACQUIRED ABSENCE OF OTHER SPECIFIED PART 03/22/2019 MAKAYLA HAWKINS MD Ot Z90. 5 ACQUIRED ABSENCE OF KIDNEY 03/22/2019 MAKAYLA HAWKINS MD Ot Z90.710 ACQUIRED ABSENCE OF BOTH CERVIX AND UTER 03/22/2019 MAKAYLA HAWKINS MD Ot Z90. 89 ACQUIRED ABSENCE OF OTHER ORGANS 2019 MAKAYLA HAWKINS MD Ot A08. 4 VIRAL INTESTINAL INFECTION, UNSPECIFIED 2019 MAKAYLA HAWKINS MD Ot E66. 9 OBESITY, UNSPECIFIED 2019 MAKAYLA HAWKINS MD Ot F32. 9 MAJOR DEPRESSIVE DISORDER, SINGLE EPISOD 2019 MAKAYLA HAWKINS MD Ot F41. 9 ANXIETY DISORDER, UNSPECIFIED 2019 MAKAYLA HAWKINS MD Ot G43.909 MIGRAINE, UNSP, NOT INTRACTABLE, WITHOUT 2019 MAKAYLA HAWKINS MD Ot I10 ESSENTIAL (PRIMARY) HYPERTENSION 2019 MAKAYLA HAWKINS MD Ot J45.909 UNSPECIFIED ASTHMA, UNCOMPLICATED 2019 MAKAYLA HAWKINS MD Ot R10. 9 UNSPECIFIED ABDOMINAL PAIN 2019 MAKAYLA HAWKINS MD Ot Z68. 42 BODY MASS INDEX (BMI) 45.0-49.9, ADULT 2019 MAKAYLA HAWKINS MD Ot Z79. 52 PATENT LAW SPECIALIST (CURRENT) USE OF SYSTEMIC STER 2019 MAKAYLA HAWKINS MD Ot Z82. 49 FAMILY HX OF ISCHEM HEART DIS AND OTH DI 2019 MAKAYLA HAWKINS MD Ot Z85.528 PERSONAL HISTORY OF OTHER MALIGNANT NEOP 2019 MAKAYLA HAWKINS MD Ot Z87. 19 PERSONAL HISTORY OF OTHER DISEASES OF TH 2019 MAKAYLA HAWKINS MD Ot Z87.440 PERSONAL HISTORY OF URINARY (TRACT) INFE 2019 MAKAYLA HAWKINS MD Ot Z88. 0 ALLERGY STATUS TO PENICILLIN 2019 MAKAYLA HAWKINS MD Ot Z88. 1 ALLERGY STATUS TO OTHER ANTIBIOTIC AGENT 2019 MAKAYLA HAWKINS MD Ot Z88. 5 ALLERGY STATUS TO NARCOTIC AGENT STATUS 2019 MAKAYLA HAWKINS MD Ot Z90. 49 ACQUIRED ABSENCE OF OTHER SPECIFIED PART 2019 MAKAYLA HAKWINS MD Ot Z90. 5 ACQUIRED ABSENCE OF KIDNEY 2019 MAKAYLA HAWKINS MD Ot Z90.710 ACQUIRED ABSENCE OF BOTH CERVIX AND UTER 2019 MAKAYLA HAWKINS MD Ot Z90. 89 ACQUIRED ABSENCE OF OTHER ORGANS 03/31/2019 GEORGES FINN APRN Ot E66 .9 OBESITY, UNSPECIFIED 03/31/2019 GEORGES FINN APRN Ot F32 .9 MAJOR DEPRESSIVE DISORDER, SINGLE EPISOD 03/31/2019 GEORGES FINN APRN Ot F41 .9 ANXIETY DISORDER, UNSPECIFIED 03/31/2019 GEORGES FINN APRN Ot G43.909 MIGRAINE, UNSP, NOT INTRACTABLE, WITHOUT 03/31/2019 GEORGES FINN APRN Ot I10 ESSENTIAL (PRIMARY) HYPERTENSION 03/31/2019 GEORGES FINN APRN, Ot J45.909 UNSPECIFIED ASTHMA, UNCOMPLICATED 03/31/2019 GEORGES FINN APRN Ot R20 .0 ANESTHESIA OF SKIN 03/31/2019 GEORGES FINN APRN Ot R20 .2 PARESTHESIA OF SKIN 03/31/2019 GEORGES FINN APRN Ot Z68.37 BODY MASS INDEX (BMI) 37.0-37.9, ADULT 03/31/2019 GEORGES FINN APRN Ot Z79.52 MCFP (CURRENT) USE OF SYSTEMIC STER 03/31/2019 GEORGES FINN APRN Ot Z82.49 FAMILY HX OF ISCHEM HEART DIS AND OTH DI 03/31/2019 GEORGES FINN APRN Ot Z85.528 PERSONAL HISTORY OF OTHER MALIGNANT NEOP 03/31/2019 GEORGES FINN APRN Ot Z87.440 PERSONAL HISTORY OF URINARY (TRACT) INFE 03/31/2019 GEORGES FINN APRN Ot Z88 .0 ALLERGY STATUS TO PENICILLIN 03/31/2019 GEORGES FINN APRN Ot Z88 .1 ALLERGY STATUS TO OTHER ANTIBIOTIC AGENT 03/31/2019 GEORGES FINN APRN Ot Z88 .5 ALLERGY STATUS TO NARCOTIC AGENT STATUS 03/31/2019 GEORGES FINN APRN Ot Z90.49 ACQUIRED ABSENCE OF OTHER SPECIFIED PART 03/31/2019 GEORGES FINN APRN Ot Z90 .5 ACQUIRED ABSENCE OF KIDNEY 03/31/2019 GEORGES FINN APRN Ot Z90.710 ACQUIRED ABSENCE OF BOTH CERVIX AND UTER 03/31/2019 GEORGES FINN APRN Ot Z90.89 ACQUIRED ABSENCE OF OTHER ORGANS 04/02/2019 ROCHELLE FERMIN MD Ot J02 .9 ACUTE PHARYNGITIS, UNSPECIFIED 04/02/2019 ROCHELLE FERMIN MD Ot R59 .0 LOCALIZED ENLARGED LYMPH NODES 04/02/2019 ROCHELLE FERMIN MD Ot Z90.89 ACQUIRED ABSENCE OF OTHER ORGANS 04/03/2019 GEORGES FINN APRN Ot E66 .9 OBESITY, UNSPECIFIED 04/03/2019 GEORGES FINN APRN Ot F32 .9 MAJOR DEPRESSIVE DISORDER, SINGLE EPISOD 04/03/2019 GEORGES FINN APRN Ot F41 .9 ANXIETY DISORDER, UNSPECIFIED 04/03/2019 GEORGES FINN APRN Ot G43.909 MIGRAINE, UNSP, NOT INTRACTABLE, WITHOUT 04/03/2019 GEORGES FINN APRN Ot I10 ESSENTIAL (PRIMARY) HYPERTENSION 04/03/2019 GEORGES FINN APRN Ot J45.909 UNSPECIFIED ASTHMA, UNCOMPLICATED 04/03/2019 GEORGES FINN APRN Ot R20 .0 ANESTHESIA OF SKIN 04/03/2019 GEORGES FINN APRN Ot R20 .2 PARESTHESIA OF SKIN 04/03/2019 GEORGES FINN APRN Ot Z68.37 BODY MASS INDEX (BMI) 37.0-37.9, ADULT 04/03/2019 GEORGES FINN APRN Ot 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 04/03/2019 GEORGES FINN APRN Ot Z82.49 FAMILY HX OF ISCHEM HEART DIS AND OTH DI 04/03/2019 GEORGES FINN APRN Ot Z85.528 PERSONAL HISTORY OF OTHER MALIGNANT NEOP 04/03/2019 GEORGES FINN APRN Ot Z87.440 PERSONAL HISTORY OF URINARY (TRACT) INFE 04/03/2019 GEORGES FINN APRN Ot Z88 .0 ALLERGY STATUS TO PENICILLIN 04/03/2019 GEORGES FINN APRN Ot Z88 .1 ALLERGY STATUS TO OTHER ANTIBIOTIC AGENT 04/03/2019 GEORGES FINN APRN Ot Z88 .5 ALLERGY STATUS TO NARCOTIC AGENT STATUS 04/03/2019 GEORGES FINN APRN Ot Z90.49 ACQUIRED ABSENCE OF OTHER SPECIFIED PART 04/03/2019 GEORGES FINN APRN Ot Z90 .5 ACQUIRED ABSENCE OF KIDNEY 04/03/2019 GEORGES FINN APRN Ot Z90.710 ACQUIRED ABSENCE OF BOTH CERVIX AND UTER 04/03/2019 GEORGES FINN APRN Ot Z90.89 ACQUIRED ABSENCE OF OTHER ORGANS 04/07/2019 GEORGES FINN APRN Ot E66 .9 OBESITY, UNSPECIFIED 04/07/2019 GEORGES FINN APRN Ot F32 .9 MAJOR DEPRESSIVE DISORDER, SINGLE EPISOD 04/07/2019 GEORGES FINN APRN Ot F41 .9 ANXIETY DISORDER, UNSPECIFIED 04/07/2019 GEORGES FINN APRN Ot G43.909 MIGRAINE, UNSP, NOT INTRACTABLE, WITHOUT 04/07/2019 GEORGES FINN APRN Ot I10 ESSENTIAL (PRIMARY) HYPERTENSION 04/07/2019 GEORGES FINN APRN Ot J45.909 UNSPECIFIED ASTHMA, UNCOMPLICATED 04/07/2019 GEORGES FINN APRN Ot R10.32 LEFT LOWER QUADRANT PAIN 04/07/2019 GEORGES FINN APRN Ot R10 .9 UNSPECIFIED ABDOMINAL PAIN 04/07/2019 GEORGES FINN APRN Ot Z68.41 BODY MASS INDEX (BMI) 40.0-44.9, ADULT 04/07/2019 GEORGES FINN APRN Ot 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 04/07/2019 GEORGES FINN APRN Ot Z82.49 FAMILY HX OF ISCHEM HEART DIS AND OTH DI 04/07/2019 GEORGES FINN APRN Ot Z85.528 PERSONAL HISTORY OF OTHER MALIGNANT NEOP 04/07/2019 GEORGES FINN APRN Ot Z87.19 PERSONAL HISTORY OF OTHER DISEASES OF TH 04/07/2019 GEORGES FINN APRN Ot Z87.440 PERSONAL HISTORY OF URINARY (TRACT) INFE 04/07/2019 GEORGES FINN APRN Ot Z88 .0 ALLERGY STATUS TO PENICILLIN 04/07/2019 GEORGES FINN APRN Ot Z88 .1 ALLERGY STATUS TO OTHER ANTIBIOTIC AGENT 04/07/2019 GEORGES FINN APRN Ot Z88 .5 ALLERGY STATUS TO NARCOTIC AGENT STATUS 04/07/2019 GEORGES FINN APRN Ot Z90.49 ACQUIRED ABSENCE OF OTHER SPECIFIED PART 04/07/2019 GEORGES FINN APRN Ot Z90 .5 ACQUIRED ABSENCE OF KIDNEY 04/07/2019 GEORGES FINN APRN Ot Z90.710 ACQUIRED ABSENCE OF BOTH CERVIX AND UTER 04/07/2019 GEORGES FINN APRN Ot Z90.89 ACQUIRED ABSENCE OF OTHER ORGANS 04/10/2019 GEORGES FINN APRN Ot E66 .9 OBESITY, UNSPECIFIED 04/10/2019 GEORGES FINN APRN Ot F32 .9 MAJOR DEPRESSIVE DISORDER, SINGLE EPISOD 04/10/2019 GEORGES FINN APRN Ot F41 .9 ANXIETY DISORDER, UNSPECIFIED 04/10/2019 GEORGES FINN APRN Ot G43.909 MIGRAINE, UNSP, NOT INTRACTABLE, WITHOUT 04/10/2019 GEORGES FINN APRN Ot I10 ESSENTIAL (PRIMARY) HYPERTENSION 04/10/2019 GEORGES FINN APRN Ot J45.909 UNSPECIFIED ASTHMA, UNCOMPLICATED 04/10/2019 GEORGES FINN APRN Ot R10.32 LEFT LOWER QUADRANT PAIN 04/10/2019 GEORGES FINN APRN Ot R10 .9 UNSPECIFIED ABDOMINAL PAIN 04/10/2019 GEORGES FINN APRN Ot Z68.41 BODY MASS INDEX (BMI) 40.0-44.9, ADULT 04/10/2019 GEORGES FINN APRN Ot 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 04/10/2019 GEORGES FINN APRN Ot Z82.49 FAMILY HX OF ISCHEM HEART DIS AND OTH DI 04/10/2019 GEORGES FINN APRN Ot Z85.528 PERSONAL HISTORY OF OTHER MALIGNANT NEOP 04/10/2019 GEORGES FINN APRN Ot Z87.19 PERSONAL HISTORY OF OTHER DISEASES OF TH 04/10/2019 GEORGES FINN APRN Ot Z87.440 PERSONAL HISTORY OF URINARY (TRACT) INFE 04/10/2019 GEORGES FINN APRN Ot Z88 .0 ALLERGY STATUS TO PENICILLIN 04/10/2019 GEORGES FINN APRN Ot Z88 .1 ALLERGY STATUS TO OTHER ANTIBIOTIC AGENT 04/10/2019 GEORGES FINN APRN Ot Z88 .5 ALLERGY STATUS TO NARCOTIC AGENT STATUS 04/10/2019 GEORGES FINN ASSURANCE ENGINEER Ot Z90.49 ACQUIRED ABSENCE OF OTHER SPECIFIED PART 04/10/2019 GEORGES FINN ASSURANCE ENGINEER Ot Z90 .5 ACQUIRED ABSENCE OF KIDNEY 04/10/2019 GEORGES FINN ASSURANCE ENGINEER Ot Z90.710 ACQUIRED ABSENCE OF BOTH CERVIX AND UTER 04/10/2019 GEORGES FINN ASSURANCE ENGINEER Ot Z90.89 ACQUIRED ABSENCE OF OTHER ORGANS 04/21/2019 ROCHELLE FERMIN MD Ot J02 .9 ACUTE PHARYNGITIS, UNSPECIFIED 04/21/2019 ROCHELLE FERMIN MD Ot R59 .0 LOCALIZED ENLARGED LYMPH NODES 04/21/2019 ROCHELLE FERMIN MD Ot Z90.89 ACQUIRED ABSENCE OF OTHER ORGANS 05/12/2019 GEOVANI HERNANDEZ SENIOR RELIABILITY ENGINEER Ot E66.9 OBESITY, UNSPECIFIED 05/12/2019 GEOVANI HERNANDEZ SENIOR RELIABILITY ENGINEER Ot F32.9 MAJOR DEPRESSIVE DISORDER, SINGLE EPISOD 05/12/2019 DAVID GEOVANI SENIOR RELIABILITY ENGINEER Ot F41.9 ANXIETY DISORDER, UNSPECIFIED 05/12/2019 GEOVANI HERNANDEZ SENIOR RELIABILITY ENGINEER Ot G43.909 MIGRAINE, UNSP, NOT INTRACTABLE, WITHOUT 05/12/2019 DAVID, GEOVANI SENIOR RELIABILITY ENGINEER Ot I10 ESSENTIAL (PRIMARY) HYPERTENSION 05/12/2019 DAVID GEOVANI SENIOR RELIABILITY ENGINEER Ot J45.909 UNSPECIFIED ASTHMA, UNCOMPLICATED 05/12/2019 DAVID GEOVANI SENIOR RELIABILITY ENGINEER Ot R10.84 GENERALIZED ABDOMINAL PAIN 05/12/2019 DAVID GEOVANI SENIOR RELIABILITY ENGINEER Ot R11.2 NAUSEA WITH VOMITING, UNSPECIFIED 05/12/2019 DAVID GEOVANI SENIOR RELIABILITY ENGINEER Ot Z68.42 BODY MASS INDEX (BMI) 45.0-49.9, ADULT 05/12/2019 GEOVANI HERNANDEZ SENIOR RELIABILITY ENGINEER Ot 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 05/12/2019 DAVID GEOVANI SENIOR RELIABILITY ENGINEER Ot Z82.49 FAMILY HX OF ISCHEM HEART DIS AND OTH DI 05/12/2019 GEOVANI HERNANDEZ SENIOR RELIABILITY ENGINEER Ot Z85.528 PERSONAL HISTORY OF OTHER MALIGNANT NEOP 05/12/2019 GEOVANI HERNANDEZ SENIOR RELIABILITY ENGINEER Ot Z87.440 PERSONAL HISTORY OF URINARY (TRACT) INFE 05/12/2019 GEOVANI HERNANDEZ SENIOR RELIABILITY ENGINEER Ot Z87.891 PERSONAL HISTORY OF NICOTINE DEPENDENCE 05/12/2019 GEOVANI HERNANDEZ SENIOR RELIABILITY ENGINEER Ot Z88.0 ALLERGY STATUS TO PENICILLIN 05/12/2019 GEOVANI HERNANDEZ Ot Z88.1 ALLERGY STATUS TO OTHER ANTIBIOTIC AGENT 05/12/2019 GEOVANI HERNANDEZ Ot Z88.5 ALLERGY STATUS TO NARCOTIC AGENT STATUS 05/12/2019 GEOVANI EHRNANDEZ Ot Z90.49 ACQUIRED ABSENCE OF OTHER SPECIFIED PART 05/12/2019 GEOVANI HERNANDEZ Ot Z90.5 ACQUIRED ABSENCE OF KIDNEY 05/12/2019 GEOVANI HERNANDEZP Ot Z90.710 ACQUIRED ABSENCE OF BOTH CERVIX AND UTER 05/12/2019 GEOVANI HERNANDEZ Ot Z90.89 ACQUIRED ABSENCE OF OTHER ORGANS 05/22/2019 GEORGES FINN APRN Ot E66 .9 OBESITY, UNSPECIFIED 05/22/2019 GEORGES FINN APRN Ot F32 .9 MAJOR DEPRESSIVE DISORDER, SINGLE EPISOD 05/22/2019 GEORGES FINN APRN Ot F41 .9 ANXIETY DISORDER, UNSPECIFIED 05/22/2019 GEORGES FINN APRN Ot G43.909 MIGRAINE, UNSP, NOT INTRACTABLE, WITHOUT 05/22/2019 GEORGES FINN APRN Ot I10 ESSENTIAL (PRIMARY) HYPERTENSION 05/22/2019 GEORGES FINN APRN Ot J45.909 UNSPECIFIED ASTHMA, UNCOMPLICATED 05/22/2019 GEORGES FINN APRN Ot K86 .1 OTHER CHRONIC PANCREATITIS 05/22/2019 GEORGES FINN APRN Ot S61.512A LACERATION WITHOUT FOREIGN BODY OF LEFT 05/22/2019 GEORGES FINN APRN Ot W26.8XXA CONTACT WITH OTHER SHARP OBJECT(S), NEC, 05/22/2019 GEORGES FINN APRN Ot Z79.52 [facility] (CURRENT) USE OF SYSTEMIC STER 05/22/2019 GEORGES FINN APRN Ot Z82.49 FAMILY HX OF ISCHEM HEART DIS AND OTH DI 05/22/2019 GEORGES FINN APRN Ot Z85.528 PERSONAL HISTORY OF OTHER MALIGNANT NEOP 05/22/2019 GEORGES FINN APRN Ot Z86.010 PERSONAL HISTORY OF COLONIC POLYPS 05/22/2019 GEORGES FINN APRN Ot Z87.440 PERSONAL HISTORY OF URINARY (TRACT) INFE 05/22/2019 GEORGES FINN APRN Ot Z88 .0 ALLERGY STATUS TO PENICILLIN 05/22/2019 GEORGES FINN APRN Ot Z88 .1 ALLERGY STATUS TO OTHER ANTIBIOTIC AGENT 05/22/2019 GEORGES FINN APRN Ot Z88 .5 ALLERGY STATUS TO NARCOTIC AGENT STATUS 05/22/2019 GEORGES FINN APRN Ot Z88 .8 ALLERGY STATUS TO OTH DRUG/MEDS/BIOL SUB 05/22/2019 GEORGES FINN APRN Ot Z90.49 ACQUIRED ABSENCE OF OTHER SPECIFIED PART 05/22/2019 GEORGES FINN APRN Ot Z90.710 ACQUIRED ABSENCE OF BOTH CERVIX AND UTER 05/22/2019 GEORGES FINN APRN Ot Z90.89 ACQUIRED ABSENCE OF OTHER ORGANS 05/22/2019 JENY PARISH, ROCHELLE Salgado Ot E04 .1 NONTOXIC SINGLE THYROID NODULE 05/29/2019 YUKI MARCH MD Ot F32.9 MAJOR DEPRESSIVE DISORDER, SINGLE EPISOD 05/29/2019 YUKI MARCH MD Ot F41.9 ANXIETY DISORDER, UNSPECIFIED 05/29/2019 YUKI MARCH MD Ot G43.909 MIGRAINE, UNSP, NOT INTRACTABLE, WITHOUT 05/29/2019 YUKI MARCH MD Ot I10 ESSENTIAL (PRIMARY) HYPERTENSION 05/29/2019 YUKI MARCH MD Ot J45.909 UNSPECIFIED ASTHMA, UNCOMPLICATED 05/29/2019 YUKI MARCH MD Ot R10.11 RIGHT UPPER QUADRANT PAIN 05/29/2019 YUKI MARCH MD Ot R10.31 RIGHT LOWER QUADRANT PAIN 05/29/2019 YUKI MARCH MD Ot Z79.52 [facility] (CURRENT) USE OF SYSTEMIC STER 05/29/2019 YUKI MARCH MD Ot Z82.49 FAMILY HX OF ISCHEM HEART DIS AND OTH DI 05/29/2019 YUKI MARCH MD Ot Z85.528 PERSONAL HISTORY OF OTHER MALIGNANT NEOP 05/29/2019 YUKI MARCH MD Ot Z87.19 PERSONAL HISTORY OF OTHER DISEASES OF TH 05/29/2019 YUKI MARCH MD Ot Z87.440 PERSONAL HISTORY OF URINARY (TRACT) INFE 05/29/2019 YUIK MARCH MD Ot Z87.891 PERSONAL HISTORY OF NICOTINE DEPENDENCE 05/29/2019 YUKI MARCH MD Ot Z88.0 ALLERGY STATUS TO PENICILLIN 05/29/2019 YUKI MARCH MD Ot Z88.1 ALLERGY STATUS TO OTHER ANTIBIOTIC AGENT 05/29/2019 YUKI MARCH MD, Ot Z88.5 ALLERGY STATUS TO NARCOTIC AGENT STATUS 05/29/2019 YUKI MARCH MD Ot Z90.49 ACQUIRED ABSENCE OF OTHER SPECIFIED PART 05/29/2019 YUKI MARCH MD Ot Z90.5 ACQUIRED ABSENCE OF KIDNEY 05/29/2019 YUKI MARCH MD Ot Z90.710 ACQUIRED ABSENCE OF BOTH CERVIX AND UTER 05/29/2019 YUKI MARCH MD Ot Z90.89 ACQUIRED ABSENCE OF OTHER ORGANS 05/31/2019 GEORGES FINN APRN Ot E66 .9 OBESITY, UNSPECIFIED 05/31/2019 GEORGES FINN APRN Ot F32 .9 MAJOR DEPRESSIVE DISORDER, SINGLE EPISOD 05/31/2019 GEORGES FINN APRN Ot F41 .9 ANXIETY DISORDER, UNSPECIFIED 05/31/2019 GEORGES FINN APRN Ot G43.909 MIGRAINE, UNSP, NOT INTRACTABLE, WITHOUT 05/31/2019 GEORGES FINN APRN Ot I10 ESSENTIAL (PRIMARY) HYPERTENSION 05/31/2019 GEORGES FINN APRN Ot J45.909 UNSPECIFIED ASTHMA, UNCOMPLICATED 05/31/2019 GEORGES FINN APRN Ot K86 .1 OTHER CHRONIC PANCREATITIS 05/31/2019 GEORGES FINN APRN Ot S61.512A LACERATION WITHOUT FOREIGN BODY OF LEFT 05/31/2019 GEORGES FINN APRN Ot W26.8XXA CONTACT WITH OTHER SHARP OBJECT(S), NEC, 05/31/2019 GEORGES FINN APRN Ot Z79.52 [facility] (CURRENT) USE OF SYSTEMIC STER 05/31/2019 GEORGES FINN APRN Ot Z82.49 FAMILY HX OF ISCHEM HEART DIS AND OTH DI 05/31/2019 GEORGES FINN APRN Ot Z85.528 PERSONAL HISTORY OF OTHER MALIGNANT NEOP 05/31/2019 GEORGES FINN APRN Ot Z86.010 PERSONAL HISTORY OF COLONIC POLYPS 05/31/2019 GEORGES FINN APRN Ot Z87.440 PERSONAL HISTORY OF URINARY (TRACT) INFE 05/31/2019 GEORGES FINN APRN Ot Z88 .0 ALLERGY STATUS TO PENICILLIN 05/31/2019 GEORGES FINN APRN Ot Z88 .1 ALLERGY STATUS TO OTHER ANTIBIOTIC AGENT 05/31/2019 GEORGES FINN APRN Ot Z88 .5 ALLERGY STATUS TO NARCOTIC AGENT STATUS 05/31/2019 GEORGES FINN APRN Ot Z88 .8 ALLERGY STATUS TO OTH DRUG/MEDS/BIOL SUB 05/31/2019 GEORGES FINN APRN Ot Z90.49 ACQUIRED ABSENCE OF OTHER SPECIFIED PART 05/31/2019 GEORGES FINN APRN Ot Z90.710 ACQUIRED ABSENCE OF BOTH CERVIX AND UTER 05/31/2019 GEORGES FINN APRN Ot Z90.89 ACQUIRED ABSENCE OF OTHER ORGANS 06/01/2019 YUKI MARCH MD Ot F32.9 MAJOR DEPRESSIVE DISORDER, SINGLE EPISOD 06/01/2019 YUKI MARCH MD Ot F41.9 ANXIETY DISORDER, UNSPECIFIED 06/01/2019 YUKI MARCH MD Ot G43.909 MIGRAINE, UNSP, NOT INTRACTABLE, WITHOUT 06/01/2019 YUKI MARCH MD Ot I10 ESSENTIAL (PRIMARY) HYPERTENSION 06/01/2019 YUKI MARCH MD Ot J45.909 UNSPECIFIED ASTHMA, UNCOMPLICATED 06/01/2019 YUKI MARCH MD Ot R10.11 RIGHT UPPER QUADRANT PAIN 06/01/2019 YUKI MARCH MD Ot R10.31 RIGHT LOWER QUADRANT PAIN 06/01/2019 YUKI MARCH MD Ot Z79.52 [facility] (CURRENT) USE OF SYSTEMIC STER 06/01/2019 YUKI MARCH MD Ot Z82.49 FAMILY HX OF ISCHEM HEART DIS AND OTH DI 06/01/2019 YUKI MARCH MD Ot Z85.528 PERSONAL HISTORY OF OTHER MALIGNANT NEOP 06/01/2019 YUKI MARCH MD Ot Z87.19 PERSONAL HISTORY OF OTHER DISEASES OF TH 06/01/2019 YUKI MARCH MD Ot Z87.440 PERSONAL HISTORY OF URINARY (TRACT) INFE 06/01/2019 YUKI MARCH MD Ot Z87.891 PERSONAL HISTORY OF NICOTINE DEPENDENCE 06/01/2019 YUKI MARCH MD Ot Z88.0 ALLERGY STATUS TO PENICILLIN 06/01/2019 YUKI MARCH MD, Ot Z88.1 ALLERGY STATUS TO OTHER ANTIBIOTIC AGENT 06/01/2019 YUKI MARCH MD, Ot Z88.5 ALLERGY STATUS TO NARCOTIC AGENT STATUS 06/01/2019 YUKI MARCH MD, Ot Z90.49 ACQUIRED ABSENCE OF OTHER SPECIFIED PART 06/01/2019 YUKI MARCH MD, Ot Z90.5 ACQUIRED ABSENCE OF KIDNEY 06/01/2019 YUKI MARCH MD, Ot Z90.710 ACQUIRED ABSENCE OF BOTH CERVIX AND UTER 06/01/2019 YUKI MARCH MD, Ot Z90.89 ACQUIRED ABSENCE OF OTHER ORGANS 06/01/2019 DEE BAH MD, Ot 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 06/01/2019 DEE BAH MD Ot M45.9 ANKYLOSING SPONDYLITIS OF UNSPECIFIED SI 06/14/2019 KIARA MORRISON Ot E66.9 OBESITY, UNSPECIFIED 06/14/2019 KIARA MORRISON Ot F31.9 BIPOLAR DISORDER, UNSPECIFIED 06/14/2019 KIARA MORRISON Ot F41.9 ANXIETY DISORDER, UNSPECIFIED 06/14/2019 KIARA MORRISON Ot G43.909 MIGRAINE, UNSP, NOT INTRACTABLE, WITHOUT 06/14/2019 KIARA MORRISON Ot I 10 ESSENTIAL (PRIMARY) HYPERTENSION 06/14/2019 KIARA MORRISON Ot J45.909 UNSPECIFIED ASTHMA, UNCOMPLICATED 06/14/2019 KIARA MORRISON Ot M25.571 PAIN IN RIGHT ANKLE AND JOINTS OF RIGHT 06/14/2019 KIARA MORRISON Ot R11.2 NAUSEA WITH VOMITING, UNSPECIFIED 06/14/2019 KIARA MORRISON Ot S20.212A CONTUSION OF LEFT FRONT WALL OF THORAX, 06/14/2019 KIARA MORRISON Ot S93.401A SPRAIN OF UNSPECIFIED LIGAMENT OF RIGHT 06/14/2019 KIARA MORRISON Ot W01.0XXA FALL SAME LEV FROM SLIP/TRIP W/O STRIKE 06/14/2019 KIARA MORRISON Ot Y92.[address] IN [facility] NON-[facility] (PRIVATE 06/14/2019 KIARA MORRISON Ot Z79.52 [facility] (CURRENT) USE OF SYSTEMIC STER 06/14/2019 KIARA MORRISON Ot Z82.49 FAMILY HX OF ISCHEM HEART DIS AND OTH DI 06/14/2019 KIARA MORRISON Ot Z85.038 PERSONAL HISTORY OF MALIGNANT NEOPLASM O 06/14/2019 KIARA MORRISON Ot Z87.440 PERSONAL HISTORY OF URINARY (TRACT) INFE 06/14/2019 KIARA MORRISON Ot Z88.0 ALLERGY STATUS TO PENICILLIN 06/14/2019 KIARA MORRISON Ot Z88.1 ALLERGY STATUS TO OTHER ANTIBIOTIC AGENT 06/14/2019 KIARA MORRISON Ot Z88.5 ALLERGY STATUS TO NARCOTIC AGENT STATUS 06/14/2019 KIARA MORRISON Ot Z90.49 ACQUIRED ABSENCE OF OTHER SPECIFIED PART 06/14/2019 KIARA MORRISON Ot Z90.5 ACQUIRED ABSENCE OF KIDNEY 06/14/2019 KIARA MORRISON Ot Z90.710 ACQUIRED ABSENCE OF BOTH CERVIX AND UTER 06/14/2019 KIARA MORRISON Ot Z90.89 ACQUIRED ABSENCE OF OTHER ORGANS 06/18/2019 KIARA MORRISON Ot E66.9 OBESITY, UNSPECIFIED 06/18/2019 KIARA MORRISON Ot F31.9 BIPOLAR DISORDER, UNSPECIFIED 06/18/2019 KIARA MORRISON Ot F41.9 ANXIETY DISORDER, UNSPECIFIED 06/18/2019 KIARA MORRISON Ot G43.909 MIGRAINE, UNSP, NOT INTRACTABLE, WITHOUT 06/18/2019 KIARA MORRISON Ot I 10 ESSENTIAL (PRIMARY) HYPERTENSION 06/18/2019 KIARA MORRISON Ot J45.909 UNSPECIFIED ASTHMA, UNCOMPLICATED 06/18/2019 KIARA MORRISON Ot M25.571 PAIN IN RIGHT ANKLE AND JOINTS OF RIGHT 06/18/2019 KIARA MORRISON Ot R11.2 NAUSEA WITH VOMITING, UNSPECIFIED 06/18/2019 KIARA MORRISON Ot S20.212A CONTUSION OF LEFT FRONT WALL OF THORAX, 06/18/2019 KIARA MORRISON Ot S93.401A SPRAIN OF UNSPECIFIED LIGAMENT OF RIGHT 06/18/2019 KIARA MORRISON Ot W01.0XXA FALL SAME LEV FROM SLIP/TRIP W/O STRIKE 06/18/2019 KIARA MORRISON Ot Y92.[address] IN [facility] NON-[facility] (PRIVATE 06/18/2019 KIARA MORRISON Ot Z79.52 [facility] (CURRENT) USE OF SYSTEMIC STER 06/18/2019 KIARA MORRISON Ot Z82.49 FAMILY HX OF ISCHEM HEART DIS AND OTH DI 06/18/2019 KIARA MORRISON Ot Z85.038 PERSONAL HISTORY OF MALIGNANT NEOPLASM O 06/18/2019 KIARA MORRISON Ot Z87.440 PERSONAL HISTORY OF URINARY (TRACT) INFE 06/18/2019 KIARA MORRISON Ot Z88.0 ALLERGY STATUS TO PENICILLIN 06/18/2019 KIARA MORRISON Ot Z88.1 ALLERGY STATUS TO OTHER ANTIBIOTIC AGENT 06/18/2019 KIARA MORRISON Ot Z88.5 ALLERGY STATUS TO NARCOTIC AGENT STATUS 06/18/2019 KIARA MORRISON Ot Z90.49 ACQUIRED ABSENCE OF OTHER SPECIFIED PART 06/18/2019 KIARA MORRISON Ot Z90.5 ACQUIRED ABSENCE OF KIDNEY 06/18/2019 KIARA MORRISON Ot Z90.710 ACQUIRED ABSENCE OF BOTH CERVIX AND UTER 06/18/2019 KIARA MORRISON Ot Z90.89 ACQUIRED ABSENCE OF OTHER ORGANS 06/18/2019 [place], DEE Alston Ot 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 06/18/2019 DEE BAH MD Ot M45.9 ANKYLOSING SPONDYLITIS OF UNSPECIFIED SI 07/04/2019 LAZARO HURTADO SENIOR RELIABILITY ENGINEER Ot 278.01 MORBID OBESITY 07/04/2019 LAZARO HURTADO SENIOR RELIABILITY ENGINEER Ot 401.9 HYPERTENSION NOS 07/04/2019 LAZARO HURTADO SENIOR RELIABILITY ENGINEER Ot 786.09 RESPIRATORY ABNORM NEC 07/04/2019 LAZARO HURTADO SENIOR RELIABILITY ENGINEER Ot V85.42 BODY MASS INDEX 45.0-49.9, ADULT 07/04/2019 DEE BAH MD Ot 723.0 CERVICAL SPINAL STENOSIS 07/04/2019 DEE BAH MD Ot 724.0 2 SPINAL STENOSIS, LUMBAR REG, W/OUT NEURO 07/04/2019 [place], ROCHELLE Salgado Ot M77.8 OTHER ENTHESOPATHIES, NOT ELSEWHERE CLAS 07/04/2019 ROCHELLE CANNON MD, Ot M23.8X1 OTHER INTERNAL DERANGEMENTS OF RIGHT KNE 07/04/2019 ROCHELLE CANNON MD, Ot Z01.818 ENCOUNTER FOR OTHER PREPROCEDURAL EXAMIN 07/04/2019 ROCHELLE CANNON MD, Ot Z11.2 ENCOUNTER FOR SCREENING FOR OTHER BACTER 07/04/2019 CARMEN GIBBS MD, Ot E78 .2 MIXED HYPERLIPIDEMIA 07/04/2019 ROCHELLE CANNON MD, Ot S83.241S OTH TEAR OF MEDIAL MENISCUS, CURRENT INJ 07/04/2019 ROCHELLE CANNON MD, Ot X58.XXXS EXPOSURE TO OTHER SPECIFIED FACTORS, SEQ 07/04/2019 ROCHELLE CANNON MD, Ot Y99.8 OTHER EXTERNAL CAUSE STATUS 07/04/2019 ROCHELLE CANNON MD, Ot M79.604 PAIN IN RIGHT LEG 07/04/2019 ROCHELLE CANNON MD, Ot M25.461 EFFUSION, RIGHT KNEE 07/04/2019 ROCHELLE CANNON MD, Ot S83.241A OTH TEAR OF MEDIAL MENISCUS, CURRENT INJ 07/04/2019 CARMEN GIBBS MD, Ot R04 .2 HEMOPTYSIS 07/04/2019 CARMEN GIBBS MD, Ot R22 .1 LOCALIZED SWELLING, MASS AND LUMP, NECK 07/04/2019 CARMEN GIBBS MD, Ot R22 .1 LOCALIZED SWELLING, MASS AND LUMP, NECK 07/04/2019 YUNIOR LYLES MD, Ot K76.0 FATTY (CHANGE OF) LIVER, NOT ELSEWHERE C 07/04/2019 YUNIOR LYLES MD, Ot Z90.49 ACQUIRED ABSENCE OF OTHER SPECIFIED PART 07/04/2019 YUNIOR LYLES MD, Ot Z90.5 ACQUIRED ABSENCE OF KIDNEY 07/04/2019 CARMEN GIBBS MD, Ot R91 .1 SOLITARY PULMONARY NODULE 07/04/2019 CARMEN GIBBS MD, Ot Z53 .8 PROCEDURE AND TREATMENT NOT CARRIED OUT 07/04/2019 CARMEN GIBBS MD, Ot 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 07/04/2019 CARMEN GIBBS MD, Ot Z90 .5 ACQUIRED ABSENCE OF KIDNEY 07/04/2019 CARMEN GIBBS MD, Ot Z98.890 OTHER SPECIFIED POSTPROCEDURAL STATES 07/04/2019 KINSEY BOWENS APRN Ot L53.9 ERYTHEMATOUS CONDITION, UNSPECIFIED 07/04/2019 KINSEY BOWENS ASSURANCE ENGINEER Ot M79.89 OTHER SPECIFIED SOFT TISSUE DISORDERS 07/04/2019 KINSEY BOWENS APRN Ot W20.8XXA OTH CAUSE OF STRIKE BY THROWN, PROJECTED 07/04/2019 CARMEN GIBBS MD, Ot M79.622 PAIN IN LEFT UPPER ARM 07/04/2019 YUNIOR LYLES MD, Ot B95.2 ENTEROCOCCUS THE CAUSE OF DISEASES CL 07/04/2019 YUNIOR LYLES MD, Ot E86.0 DEHYDRATION 07/04/2019 LINDSEY MARROQUIN DO Ot R10.9 UNSPECIFIED ABDOMINAL PAIN 07/04/2019 SANTIAGO MARROQUIN DOIC B Ot R10.3 2 LEFT LOWER QUADRANT PAIN 07/04/2019 CARA GAMING LINDSEY B Ot Z90.5 ACQUIRED ABSENCE OF KIDNEY 07/04/2019 CARA GAMING LINDSEY B Ot Z90.8 9 ACQUIRED ABSENCE OF OTHER ORGANS 07/04/2019 KIARA MORRISON Ot R22.42 LOCALIZED SWELLING, MASS AND LUMP, LEFT 07/04/2019 CARMEN GIBBS MD Ot K76 .0 FATTY (CHANGE OF) LIVER, NOT ELSEWHERE C 07/04/2019 CARMEN GIBBS MD Ot R94 .5 ABNORMAL RESULTS OF LIVER FUNCTION STUDI 07/04/2019 ROCHELLE FERMIN MD Ot J02 .9 ACUTE PHARYNGITIS, UNSPECIFIED 07/04/2019 ROCHELLE FERMIN MD Ot R59 .0 LOCALIZED ENLARGED LYMPH NODES 07/04/2019 ROCHELLE FERMIN MD Ot Z90.89 ACQUIRED ABSENCE OF OTHER ORGANS 07/04/2019 ROCHELLE FERMIN MD Ot E04 .1 NONTOXIC SINGLE THYROID NODULE 07/04/2019 DEE BAH MD Ot 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 07/04/2019 DEE BAH MD, Ot M45.9 ANKYLOSING SPONDYLITIS OF UNSPECIFIED SI 07/05/2019 YUKI MARCH MD, Ot E66.9 OBESITY, UNSPECIFIED 07/05/2019 YUKI MARCH MD, Ot F32.9 MAJOR DEPRESSIVE DISORDER, SINGLE EPISOD 07/05/2019 YUKI MARCH MD Ot F41.9 ANXIETY DISORDER, UNSPECIFIED 07/05/2019 YUKI MARCH MD Ot G43.909 MIGRAINE, UNSP, NOT INTRACTABLE, WITHOUT 07/05/2019 YUKI MARCH MD Ot I10 ESSENTIAL (PRIMARY) HYPERTENSION 07/05/2019 YUKI MARCH MD Ot J45.909 UNSPECIFIED ASTHMA, UNCOMPLICATED 07/05/2019 YUKI MARCH MD Ot R10.11 RIGHT UPPER QUADRANT PAIN 07/05/2019 YUKI MARCH MD Ot Z68.43 BODY MASS INDEX (BMI) 50.0-59.9, ADULT 07/05/2019 YUKI MARCH MD, Ot Z79.52 [facility] (CURRENT) USE OF SYSTEMIC STER 07/05/2019 YUKI MARCH MD, Ot Z82.49 FAMILY HX OF ISCHEM HEART DIS AND OTH DI 07/05/2019 YUKI MARCH MD Ot Z85.528 PERSONAL HISTORY OF OTHER MALIGNANT NEOP 07/05/2019 YUKI MARCH MD Ot Z87.19 PERSONAL HISTORY OF OTHER DISEASES OF TH 07/05/2019 YUKI MARCH MD Ot Z88.0 ALLERGY STATUS TO PENICILLIN 07/05/2019 YUKI AMRCH MD Ot Z88.1 ALLERGY STATUS TO OTHER ANTIBIOTIC AGENT 07/05/2019 YUKI MARCH MD Ot Z88.5 ALLERGY STATUS TO NARCOTIC AGENT STATUS 07/05/2019 YUKI MARCH MD Ot Z90.49 ACQUIRED ABSENCE OF OTHER SPECIFIED PART 07/05/2019 YUKI MARCH MD Ot Z90.5 ACQUIRED ABSENCE OF KIDNEY 07/05/2019 YUKI MARCH MD Ot Z90.710 ACQUIRED ABSENCE OF BOTH CERVIX AND UTER 07/05/2019 YUKI MARCH MD Ot Z90.89 ACQUIRED ABSENCE OF OTHER ORGANS 07/08/2019 YUKI MARCH MD Ot E66.9 OBESITY, UNSPECIFIED 07/08/2019 YUKI MARCH MD Ot F32.9 MAJOR DEPRESSIVE DISORDER, SINGLE EPISOD 07/08/2019 YUKI MARCH MD Ot F41.9 ANXIETY DISORDER, UNSPECIFIED 07/08/2019 YUKI MARCH MD Ot G43.909 MIGRAINE, UNSP, NOT INTRACTABLE, WITHOUT 07/08/2019 YUKI MARCH MD Ot I10 ESSENTIAL (PRIMARY) HYPERTENSION 07/08/2019 YUKI MARCH MD, Ot J45.909 UNSPECIFIED ASTHMA, UNCOMPLICATED 07/08/2019 YUKI MARCH MD Ot R10.11 RIGHT UPPER QUADRANT PAIN 07/08/2019 YUKI MARCH MD Ot Z68.43 BODY MASS INDEX (BMI) 50.0-59.9, ADULT 07/08/2019 YUKI MARCH MD, Ot Z79.52 [facility] (CURRENT) USE OF SYSTEMIC STER 07/08/2019 YUKI MARCH MD, Ot Z82.49 FAMILY HX OF ISCHEM HEART DIS AND OTH DI 07/08/2019 YUKI MARCH MD, Ot Z85.528 PERSONAL HISTORY OF OTHER MALIGNANT NEOP 07/08/2019 YUKI MARCH MD Ot Z87.19 PERSONAL HISTORY OF OTHER DISEASES OF TH 07/08/2019 YUKI MARCH MD Ot Z88.0 ALLERGY STATUS TO PENICILLIN 07/08/2019 YUKI MARCH MD, Ot Z88.1 ALLERGY STATUS TO OTHER ANTIBIOTIC AGENT 07/08/2019 YUKI MARCH MD, Ot Z88.5 ALLERGY STATUS TO NARCOTIC AGENT STATUS 07/08/2019 YUKI MARCH MD Ot Z90.49 ACQUIRED ABSENCE OF OTHER SPECIFIED PART 07/08/2019 YUKI MARCH MD Ot Z90.5 ACQUIRED ABSENCE OF KIDNEY 07/08/2019 YUKI MARCH MD Ot Z90.710 ACQUIRED ABSENCE OF BOTH CERVIX AND UTER 07/08/2019 YUKI MARCH MD Ot Z90.89 ACQUIRED ABSENCE OF OTHER ORGANS 07/08/2019 GEORGES FINN APRN Ot E66 .9 OBESITY, UNSPECIFIED 07/08/2019 GEORGES FINN APRN Ot F32 .9 MAJOR DEPRESSIVE DISORDER, SINGLE EPISOD 07/08/2019 GEORGES FINN APRN Ot F41 .9 ANXIETY DISORDER, UNSPECIFIED 07/08/2019 GEORGES FINN APRN Ot G43.909 MIGRAINE, UNSP, NOT INTRACTABLE, WITHOUT 07/08/2019 GEORGES FINN APRN Ot G89.29 OTHER CHRONIC PAIN 07/08/2019 GEORGES FINN APRN Ot I10 ESSENTIAL (PRIMARY) HYPERTENSION 07/08/2019 GEORGES FINN APRN Ot J45.909 UNSPECIFIED ASTHMA, UNCOMPLICATED 07/08/2019 GEORGES FINN APRN Ot R10.13 EPIGASTRIC PAIN 07/08/2019 GEORGES FINN APRN Ot Z68.42 BODY MASS INDEX (BMI) 45.0-49.9, ADULT 07/08/2019 GEORGES FINN APRN Ot Z79.52 [facility] (CURRENT) USE OF SYSTEMIC STER 07/08/2019 GEORGES FINN APRN Ot Z82.49 FAMILY HX OF ISCHEM HEART DIS AND OTH DI 07/08/2019 GEORGES FINN APRN Ot Z85.528 PERSONAL HISTORY OF OTHER MALIGNANT NEOP 07/08/2019 GEORGES FINN APRN Ot Z87.19 PERSONAL HISTORY OF OTHER DISEASES OF TH 07/08/2019 GEORGES FINN APRN Ot Z87.440 PERSONAL HISTORY OF URINARY (TRACT) INFE 07/08/2019 GEORGES FINN APRN Ot Z88 .0 ALLERGY STATUS TO PENICILLIN 07/08/2019 GEORGES FINN APRN Ot Z88 .1 ALLERGY STATUS TO OTHER ANTIBIOTIC AGENT 07/08/2019 GEORGES FINN APRN Ot Z88 .5 ALLERGY STATUS TO NARCOTIC AGENT STATUS 07/08/2019 GEORGES FINN APRN Ot Z90.49 ACQUIRED ABSENCE OF OTHER SPECIFIED PART 07/08/2019 GEORGES FINN APRN Ot Z90 .5 ACQUIRED ABSENCE OF KIDNEY 07/08/2019 GEORGES FINN APRN Ot Z90.710 ACQUIRED ABSENCE OF BOTH CERVIX AND UTER 07/08/2019 GEORGES FINN APRN Ot Z90.89 ACQUIRED ABSENCE OF OTHER ORGANS 07/10/2019 GEORGES FINN APRN Ot E66 .9 OBESITY, UNSPECIFIED 07/10/2019 GEORGES FINN APRN Ot F32 .9 MAJOR DEPRESSIVE DISORDER, SINGLE EPISOD 07/10/2019 GEORGES FINN APRN Ot F41 .9 ANXIETY DISORDER, UNSPECIFIED 07/10/2019 GEORGES FINN APRN Ot G43.909 MIGRAINE, UNSP, NOT INTRACTABLE, WITHOUT 07/10/2019 GEORGES FINN APRN Ot G89.29 OTHER CHRONIC PAIN 07/10/2019 GEORGES FINN APRN Ot I10 ESSENTIAL (PRIMARY) HYPERTENSION 07/10/2019 GEORGES FINN APRN Ot J45.909 UNSPECIFIED ASTHMA, UNCOMPLICATED 07/10/2019 GEORGES FINN APRN Ot R10.13 EPIGASTRIC PAIN 07/10/2019 GEORGES FINN APRN Ot Z68.42 BODY MASS INDEX (BMI) 45.0-49.9, ADULT 07/10/2019 GEORGES FINN APRN Ot 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 07/10/2019 GEORGES FINN APRN Ot Z82.49 FAMILY HX OF ISCHEM HEART DIS AND OTH DI 07/10/2019 GEORGES FINN APRN Ot Z85.528 PERSONAL HISTORY OF OTHER MALIGNANT NEOP 07/10/2019 GEORGES FINN APRN Ot Z87.19 PERSONAL HISTORY OF OTHER DISEASES OF TH 07/10/2019 GEORGES FINN APRN Ot Z87.440 PERSONAL HISTORY OF URINARY (TRACT) INFE 07/10/2019 GEORGES FINN APRN Ot Z88 .0 ALLERGY STATUS TO PENICILLIN 07/10/2019 GEORGES FINN APRN Ot Z88 .1 ALLERGY STATUS TO OTHER ANTIBIOTIC AGENT 07/10/2019 GEORGES FINN APRN Ot Z88 .5 ALLERGY STATUS TO NARCOTIC AGENT STATUS 07/10/2019 GEORGES FINN APRN Ot Z90.49 ACQUIRED ABSENCE OF OTHER SPECIFIED PART 07/10/2019 GEORGES FINN APRN Ot Z90 .5 ACQUIRED ABSENCE OF KIDNEY 07/10/2019 GEORGES FINN APRN Ot Z90.710 ACQUIRED ABSENCE OF BOTH CERVIX AND UTER 07/10/2019 GEORGES FINN APRN Ot Z90.89 ACQUIRED ABSENCE OF OTHER ORGANS 08/12/2019 SHANKAR DO, YAN K Ot F32.9 MAJOR DEPRESSIVE DISORDER, SINGLE EPISOD 08/12/2019 SHANKAR DO, YAN K Ot F41.9 ANXIETY DISORDER, UNSPECIFIED 08/12/2019 SHANKAR DO, YAN K Ot G89.29 OTHER CHRONIC PAIN 08/12/2019 SHANKAR DO, YAN K Ot I10 ESSENTIAL (PRIMARY) HYPERTENSION 08/12/2019 SHANKAR DO, YAN K Ot J45.909 UNSPECIFIED ASTHMA, UNCOMPLICATED 08/12/2019 SHANKAR DO, YAN K Ot R10.31 RIGHT LOWER QUADRANT PAIN 08/12/2019 SHANKAR DO, YAN K Ot R10.32 LEFT LOWER QUADRANT PAIN 08/12/2019 SHANKAR DO, YAN K Ot R51 HEADACHE 08/12/2019 SHANKAR DO, YAN K Ot Z82.49 FAMILY HX OF ISCHEM HEART DIS AND OTH DI 08/12/2019 SHANKAR DO, YAN K Ot Z86.010 PERSONAL HISTORY OF COLONIC POLYPS 08/12/2019 SHANKAR DO, YAN K Ot Z86.018 PERSONAL HISTORY OF OTHER BENIGN NEOPLAS 08/12/2019 SHANKAR DO, YAN K Ot Z86.59 PERSONAL HISTORY OF OTHER MENTAL AND BEH 08/12/2019 SHANKAR DO, YAN K Ot Z88.0 ALLERGY STATUS TO PENICILLIN 08/12/2019 SHANKAR DO, YAN K Ot Z88.1 ALLERGY STATUS TO OTHER ANTIBIOTIC AGENT 08/12/2019 [place] DO, YAN K Ot Z88.5 ALLERGY STATUS TO NARCOTIC AGENT STATUS 08/12/2019 [place] DO, YAN K Ot Z90.49 ACQUIRED ABSENCE OF OTHER SPECIFIED PART 08/12/2019 SHANKAR DO, YAN K Ot Z90.710 ACQUIRED ABSENCE OF BOTH CERVIX AND UTER 08/12/2019 [place] DO, YAN K Ot Z90.89 ACQUIRED ABSENCE OF OTHER ORGANS 09/07/2019 LINDSEY MARROQUIN DO Ot Z01.8 18 ENCOUNTER FOR OTHER PREPROCEDURAL EXAMIN 09/09/2019 [place] DO, YAN K Ot F32.9 MAJOR DEPRESSIVE DISORDER, SINGLE EPISOD 09/09/2019 [place] DO, YAN K Ot F41.9 ANXIETY DISORDER, UNSPECIFIED 09/09/2019 SHANKAR DO, YAN K Ot G89.29 OTHER CHRONIC PAIN 09/09/2019 SHANKAR DO, YAN K Ot I10 ESSENTIAL (PRIMARY) HYPERTENSION 09/09/2019 SHANKAR DO, YAN K Ot J45.909 UNSPECIFIED ASTHMA, UNCOMPLICATED 09/09/2019 SHANKAR DO, YAN K Ot R10.31 RIGHT LOWER QUADRANT PAIN 09/09/2019 SHANKAR DO, YAN K Ot R10.32 LEFT LOWER QUADRANT PAIN 09/09/2019 SHANKAR DO, YAN K Ot R51 HEADACHE 09/09/2019 SHANKAR DO, YAN K Ot Z82.49 FAMILY HX OF ISCHEM HEART DIS AND OTH DI 09/09/2019 SHANKAR DO, YAN K Ot Z86.010 PERSONAL HISTORY OF COLONIC POLYPS 09/09/2019 SHANKAR DO, YAN K Ot Z86.018 PERSONAL HISTORY OF OTHER BENIGN NEOPLAS 09/09/2019 SHANKAR DO, YAN K Ot Z86.59 PERSONAL HISTORY OF OTHER MENTAL AND BEH 09/09/2019 SHANKAR DO, YAN K Ot Z88.0 ALLERGY STATUS TO PENICILLIN 09/09/2019 SHANKAR DO, YAN K Ot Z88.1 ALLERGY STATUS TO OTHER ANTIBIOTIC AGENT 09/09/2019 SHANKAR DO, YAN K Ot Z88.5 ALLERGY STATUS TO NARCOTIC AGENT STATUS 09/09/2019 SHANKAR DO, YAN K Ot Z90.49 ACQUIRED ABSENCE OF OTHER SPECIFIED PART 09/09/2019 SHANKAR DO, YAN K Ot Z90.710 ACQUIRED ABSENCE OF BOTH CERVIX AND UTER 09/09/2019 SHANKAR DO, YAN K Ot Z90.89 ACQUIRED ABSENCE OF OTHER ORGANS 09/11/2019 SHANKAR DO, YAN K Ot F32.9 MAJOR DEPRESSIVE DISORDER, SINGLE EPISOD 09/11/2019 SHANKAR DO, YAN K Ot F41.9 ANXIETY DISORDER, UNSPECIFIED 09/11/2019 SHANKAR DO, YAN K Ot G89.29 OTHER CHRONIC PAIN 09/11/2019 SHANKAR DO, YAN K Ot I10 ESSENTIAL (PRIMARY) HYPERTENSION 09/11/2019 SHANKAR DO, YAN K Ot J45.909 UNSPECIFIED ASTHMA, UNCOMPLICATED 09/11/2019 SHANKAR DO, YAN K Ot R10.31 RIGHT LOWER QUADRANT PAIN 09/11/2019 SHANKAR DO, YAN K Ot R10.32 LEFT LOWER QUADRANT PAIN 09/11/2019 SHANKAR DO, YAN K Ot R51 HEADACHE 09/11/2019 SHANKAR DO, YAN K Ot Z82.49 FAMILY HX OF ISCHEM HEART DIS AND OTH DI 09/11/2019 SHANKAR DO, YAN K Ot Z86.010 PERSONAL HISTORY OF COLONIC POLYPS 09/11/2019 SHANKAR DO, YAN K Ot Z86.018 PERSONAL HISTORY OF OTHER BENIGN NEOPLAS 09/11/2019 SHANKAR DO, YAN K Ot Z86.59 PERSONAL HISTORY OF OTHER MENTAL AND BEH 09/11/2019 SHANKAR DO, YAN K Ot Z88.0 ALLERGY STATUS TO PENICILLIN 09/11/2019 SHANKAR DO, YAN K Ot Z88.1 ALLERGY STATUS TO OTHER ANTIBIOTIC AGENT 09/11/2019 SHANKAR DO, YAN K Ot Z88.5 ALLERGY STATUS TO NARCOTIC AGENT STATUS 09/11/2019 SHANKAR DO, YAN K Ot Z90.49 ACQUIRED ABSENCE OF OTHER SPECIFIED PART 09/11/2019 SHANKAR DO, YAN K Ot Z90.710 ACQUIRED ABSENCE OF BOTH CERVIX AND UTER 09/11/2019 SHANKAR DO, YAN K Ot Z90.89 ACQUIRED ABSENCE OF OTHER ORGANS 09/11/2019 SHANKAR DO, YAN K Ot F32.9 MAJOR DEPRESSIVE DISORDER, SINGLE EPISOD 09/11/2019 SHANKAR DO, YAN K Ot F41.9 ANXIETY DISORDER, UNSPECIFIED 09/11/2019 SHANKAR DO, YAN K Ot G89.29 OTHER CHRONIC PAIN 09/11/2019 SHANKAR DO, YAN K Ot I10 ESSENTIAL (PRIMARY) HYPERTENSION 09/11/2019 SHANKAR DO, YAN K Ot J45.909 UNSPECIFIED ASTHMA, UNCOMPLICATED 09/11/2019 SHANKAR DO, YAN K Ot R10.31 RIGHT LOWER QUADRANT PAIN 09/11/2019 SHANKAR DO, YAN K Ot R10.32 LEFT LOWER QUADRANT PAIN 09/11/2019 SHANKAR DO, YAN K Ot R51 HEADACHE 09/11/2019 BUFFALO DO, YAN K Ot Z82.49 FAMILY HX OF ISCHEM HEART DIS AND OTH DI 09/11/2019 SHANKAR DO, YAN K Ot Z86.010 PERSONAL HISTORY OF COLONIC POLYPS 09/11/2019 SHANKAR DO, YAN K Ot Z86.018 PERSONAL HISTORY OF OTHER BENIGN NEOPLAS 09/11/2019 SHANKAR DO, YAN K Ot Z86.59 PERSONAL HISTORY OF OTHER MENTAL AND BEH 09/11/2019 SHANKAR DO, YAN K Ot Z88.0 ALLERGY STATUS TO PENICILLIN 09/11/2019 SHANKAR DO, YAN K Ot Z88.1 ALLERGY STATUS TO OTHER ANTIBIOTIC AGENT 09/11/2019 SHANKAR DO, YAN K Ot Z88.5 ALLERGY STATUS TO NARCOTIC AGENT STATUS 09/11/2019 SHANKAR DO, YAN K Ot Z90.49 ACQUIRED ABSENCE OF OTHER SPECIFIED PART 09/11/2019 SHANKAR DO, YAN K Ot Z90.710 ACQUIRED ABSENCE OF BOTH CERVIX AND UTER 09/11/2019 SHANKAR DO, YAN K Ot Z90.89 ACQUIRED ABSENCE OF OTHER ORGANS 10/15/2019 DEE BAH MD Ot 723.0 CERVICAL SPINAL STENOSIS 10/15/2019 DEE BAH MD Ot 724.0 2 SPINAL STENOSIS, LUMBAR REG, W/OUT NEURO 10/15/2019 ROCHELLE CANNON MD, Ot M77.8 OTHER ENTHESOPATHIES, NOT ELSEWHERE CLAS 10/15/2019 ROCHELLE CANNON MD, Ot M23.8X1 OTHER INTERNAL DERANGEMENTS OF RIGHT KNE 10/15/2019 ROCHELLE CANNON MD, Ot Z01.818 ENCOUNTER FOR OTHER PREPROCEDURAL EXAMIN 10/15/2019 ROCHELLE CANNON MD, Ot Z11.2 ENCOUNTER FOR SCREENING FOR OTHER BACTER 10/15/2019 CARMEN GIBBS MD, Ot E78 .2 MIXED HYPERLIPIDEMIA 10/15/2019 ROCHELLE CANNON MD, Ot S83.241S OTH TEAR OF MEDIAL MENISCUS, CURRENT INJ 10/15/2019 ROCHELLE CANNON MD, Ot X58.XXXS EXPOSURE TO OTHER SPECIFIED FACTORS, SEQ 10/15/2019 ROCHELLE CANNON MD, Ot Y99.8 OTHER EXTERNAL CAUSE STATUS 10/15/2019 ROCHELLE CANNON MD, Ot M79.604 PAIN IN RIGHT LEG 10/15/2019 ROCHELLE CANNON MD, Ot M25.461 EFFUSION, RIGHT KNEE 10/15/2019 ROCHELLE CANNON MD, Ot S83.241A OTH TEAR OF MEDIAL MENISCUS, CURRENT INJ 10/15/2019 CARMEN GIBBS MD, Ot R04 .2 HEMOPTYSIS 10/15/2019 CARMEN GIBBS MD, Ot R22 .1 LOCALIZED SWELLING, MASS AND LUMP, NECK 10/15/2019 CARMEN GIBBS MD, Ot R22 .1 LOCALIZED SWELLING, MASS AND LUMP, NECK 10/15/2019 YUNIOR LYLES MD, Ot K76.0 FATTY (CHANGE OF) LIVER, NOT ELSEWHERE C 10/15/2019 YUNIOR LYLES MD, Ot Z90.49 ACQUIRED ABSENCE OF OTHER SPECIFIED PART 10/15/2019 YUNIOR LYLES MD, Ot Z90.5 ACQUIRED ABSENCE OF KIDNEY 10/15/2019 SAI MD, CARMEN N Ot R91 .1 SOLITARY PULMONARY NODULE 10/15/2019 CARMEN GIBBS MD, Ot Z53 .8 PROCEDURE AND TREATMENT NOT CARRIED OUT 10/15/2019 CARMEN GIBBS MD, Ot 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 10/15/2019 CARMEN GIBBS MD, Ot Z90 .5 ACQUIRED ABSENCE OF KIDNEY 10/15/2019 CARMEN GIBBS MD, Ot Z98.890 OTHER SPECIFIED POSTPROCEDURAL STATES 10/15/2019 KINSEY BOWENS APRN Ot L53.9 ERYTHEMATOUS CONDITION, UNSPECIFIED 10/15/2019 KINSEY BOWENS ASSURANCE ENGINEER Ot M79.89 OTHER SPECIFIED SOFT TISSUE DISORDERS 10/15/2019 KINSEY BOWENS APRN Ot W20.8XXA OTH CAUSE OF STRIKE BY THROWN, PROJECTED 10/15/2019 CARMEN GIBBS MD, Ot M79.622 PAIN IN LEFT UPPER ARM 10/15/2019 YUNIOR LYLES MD, Ot B95.2 ENTEROCOCCUS THE CAUSE OF DISEASES CL 10/15/2019 YUNIOR LYLES MD Ot E86.0 DEHYDRATION 10/15/2019 CARA DO, LINDSEY B Ot R10.9 UNSPECIFIED ABDOMINAL PAIN 10/15/2019 CARA GAMING LINDSEY B Ot R10.3 2 LEFT LOWER QUADRANT PAIN 10/15/2019 CARA GAMING LINDSEY B Ot Z90.5 ACQUIRED ABSENCE OF KIDNEY 10/15/2019 CARA GAMING, LINDSEY B Ot Z90.8 9 ACQUIRED ABSENCE OF OTHER ORGANS 10/15/2019 KIARA MORRISON Ot R22.42 LOCALIZED SWELLING, MASS AND LUMP, LEFT 10/15/2019 CARMEN GIBBS MD, Ot K76 .0 FATTY (CHANGE OF) LIVER, NOT ELSEWHERE C 10/15/2019 CARMEN GIBBS MD, Ot R94 .5 ABNORMAL RESULTS OF LIVER FUNCTION STUDI 10/15/2019 ROCHELLE FERMIN MD Ot J02 .9 ACUTE PHARYNGITIS, UNSPECIFIED 10/15/2019 ROCHELLE FERMIN MD Ot R59 .0 LOCALIZED ENLARGED LYMPH NODES 10/15/2019 ROCHELLE FERMIN MD Ot Z90.89 ACQUIRED ABSENCE OF OTHER ORGANS 10/15/2019 FERMIN MD, ROCHELLE P Ot E04 .1 NONTOXIC SINGLE THYROID NODULE 10/15/2019 NIURKA PARISH, DEE Alston Ot 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 10/15/2019 NI[place]KA PAR[place], DEE Alston Ot M45.9 ANKYLOSING SPONDYLITIS OF UNSPECIFIED SI Procedures Code Description Performed By Per formed On Otolaryng Rochelle Fermin 03/28/2010 53957 PAP SMEAR 08/02/2011 59687 EXCI MATTHIEU BENIGN LESION 1.1-2 cm (specify location in Medcin descriiption) 05/12/2012 S0630 SUTU RE REMOVAL 05/19/2012 54461 SKIN TISSUE PROCEDURE 06/05/2013 54299 US L IVER ULTRASOUND 06/05/2013 08983 OXIMETRY 09/12/2013 13565 OXIMETRY 09/16/2013 98904 THER APUTIC INJ SQ/IM 09/16/2013 J2930 SOLU MEDROL INJ 09/16/2013 09487 OXIMETRY 09/17/2013 54798 XRAY ELBOW R 2 VIEWS 09/23/2013 58097 CULT URE UROGENITAL 09/24/2013 J2550 PHEN ERGAN INJECTION UP TO 50 MG 10/28/2013 79197 THER APUTIC INJ SQ/IM 10/28/2013 61172 LIVE R PANEL (LFT) 10/28/2013 12736 LIPASE 10/28/2013 97428 [facility] 10/28/2013 92088 ROUT INE VENIPUNCTURE 01/21/2014 74060 UA W / CULTURE IF INDICATED 01/21/2014 30975 CBC 01/22/2014 [id number] GF R CALC (RESULT ONLY) 01/22/2014 23700 CMP 01/22/2014 11452 [facility] 04/27/2014 89589 TSH 04/27/2014 60826 [facility] 04/27/2014 92602 ROUT INE VENIPUNCTURE 04/27/2014 75565 ROUT INE VENIPUNCTURE 05/10/2014 05763 XRAY RIBS RIGHT UNILATERAL 2 OR MORE VIEWS 05/10/2014 87790 UA W / CULTURE IF INDICATED 05/10/2014 97888 [facility] 05/10/2014 [id number] GF R CALC (RESULT ONLY) 05/10/2014 11505 CMP 05/10/2014 56353 AMYLASE 05/10/2014 73288 LIPASE 05/10/[address] A BDOMEN & PELVIS W/ & W/O CONTRAST 05/17/2014 86209 XRAY CERVICAL SPINE, 2 OR 3 VIEWS 09/06/2014 04081 XRAY THORACIC SPINE 2 VIEWS 09/06/2014 51414 XRAY LUMBAR SPINE 2 OR 3 VIEWS 09/06/[id number] [place] OF PERITONEAL CAVITY, PERCUTANE 09/03/2017 [id number] EX CISION OF SMALL INTESTINE, OPEN APPROA 10/22/2018 [id number] BO PPLEMENT ABDOMINAL WALL WITH SYNTH SUB 10/22/2018 Results Test Result Range Complete urinalysis with reflex to cultu re - 03/05/16 18:35 Urine color determination YELLOW NRG Urine clarity determination CLEAR NR G Urine pH measurement by test strip 5 5-9 Specific gravity of urine by test strip 1.025 1.016-1.022 Urine protein assay by test strip, semi-quantitative 1+ NEGATIVE Urine glucose detection by automated test strip NE GATIVE NEGATIVE Erythrocytes detection in urine sediment by light micr oscopy 4+ NEGATIVE Urine ketones detection by automated test strip NE GATIVE NEGATIVE Urine nitrite detection by test strip NEGATIVE NEGATIVE Urine total bilirubin detection by test strip NEGA TIVE NEGATIVE Urine urobilinogen measurement by automated test strip (mass/volume) NORMAL NORMAL Urine leukocyte esterase detection by dipstick 1+ NEGATIVE Automated urine sediment erythrocyte cou nt by microscopy (number/high power field) [HPF] NRG Automated urine sediment leukocyte count by microscopy (number/high power field) [HPF] NRG Bacteria detection in urine sediment by light microsco py FEW NRG Squamous epithelial cells detection in u rine sediment by light microscopy 2-5 NRG Crystals detection in urine sediment by light microsco py NONE NRG Casts detection in urine sediment by light microscopy NONE NRG Mucus detection in urine sediment by light microscopy MODERATE NRG Complete urinalysis with reflex to culture NO NRG Bacteria identification in genital speci men by aerobe culture - 03/05/16 18:35 FREE TEXT EXTERNAL FROM TUBE ENRICHMENT BROTH NRG QUANTITY OF GROWTH Isolated NRG MRSA AGAR Screening test for MRSA is N EGATIVE (Final to follow) NRG Bacteria identification in genital specimen by aerobe culture [id number] NRG FREE TEXT EXTERNAL 2 PLUS NORMAL RISHI NRG FREE TEXT EXTERNAL 3 MODERATE NORMAL RISHI NRG Chlamydia trachomatis DNA detection by p robe and signal amplification method - 03/05/16 18:35 Chlamydia trachomatis DNA detection by p robe and target amplification method Negative Negative Neisseria gonorrhoeae DNA detection by p robe and signal amplification method - 03/05/16 18:35 Gonorrhea amp DNA-urine Negative Negati ve Microscopic examination by wet preparati on - 03/05/16 18:35 WET PREP RESULTS NO WBC'S OBSERVED ON DIRECT GRAM STAIN NRG Methicillin resistant Staphylococcus aur eus (MRSA) screening culture - 05/23/16 10:25 Methicillin resistant Staphylococcus aureus (MRSA) scr eening culture NEG NRG Complete blood count (CBC) with automate d white blood cell (WBC) differential - 05/23/16 11:17 Blood leukocytes automated count (number/volume) 9.5 10*3/uL 4.3-11.0 Blood erythrocytes automated count (number/volume) 4.45 10*6/uL 4.35-5.85 Venous blood hemoglobin measurement (mass/volume) 12.6 g/dL 11.5-16.0 Blood hematocrit (volume fraction) 38 % 35-52 Automated erythrocyte mean corpuscular volume 85 [ foz_us] 80-99 Automated erythrocyte mean corpuscular h emoglobin (mass per erythrocyte) 28 pg 25-34 Automated erythrocyte mean corpuscular h emoglobin concentration measurement (mass/volume) 33 g/dL 32-36 Automated erythrocyte distribution width ratio 13. 1 % 10.0- 14.5 Automated blood platelet count (count/volume) 320 10*3/uL [...] 10*3 1.0-4.0 Blood monocytes automated count (number/volume) 0. 4 10*3 0.0-1.0 Automated eosinophil count 0.1 10*3/uL 0 .0-0.3 Automated blood basophil count (count/volume) 0.0 10*3/uL 0.0-0.1 Complete urinalysis with reflex to cultu re - 05/23/16 11:17 Urine color determination YELLOW NRG Urine clarity determination CLEAR NR G Urine pH measurement by test strip 6 5-9 Specific gravity of urine by test strip 1.025 1.016-1.022 Urine protein assay by test strip, semi-quantitative NEGATIVE NEGATIVE Urine glucose detection by automated test strip NE GATIVE NEGATIVE Erythrocytes detection in urine sediment by light micr oscopy NEGATIVE NEGATIVE Urine ketones detection by automated test strip NE GATIVE NEGATIVE Urine nitrite detection by test strip NEGATIVE NEGATIVE Urine total bilirubin detection by test strip NEGA TIVE NEGATIVE Urine urobilinogen measurement by automated test strip (mass/volume) NORMAL NORMAL Urine leukocyte esterase detection by dipstick NEG ATIVE NEGATIVE Automated urine sediment erythrocyte cou nt by microscopy (number/high power field) NONE NRG Automated urine sediment leukocyte count by microscopy (number/high power field) [HPF] NRG Bacteria detection in urine sediment by light microsco py MODERATE NRG Squamous epithelial cells detection in u rine sediment by light microscopy 10-25 NRG Crystals detection in urine sediment by light microsco py NONE NRG Casts detection in urine sediment [...] 5-14 Serum or plasma urea nitrogen measurement (mass/volume ) 10 mg/dL 7-18 Serum or plasma creatinine measurement (mass/volume) 0.62 mg/dL 0.60-1.30 Serum or plasma urea nitrogen/creatinine mass ratio 16 NRG Serum or plasma creatinine measurement w ith calculation of estimated glomerular filtration rate > NRG Serum or plasma glucose measurement (mass/volume) 85 mg/dL 70-105 Serum or plasma calcium measurement (mass/volume) 8.8 mg/dL 8.5-10.1 Serum or plasma total bilirubin measurement (mass/volu me) 0.3 mg/dL 0.1-1.0 Serum or plasma alkaline phosphatase allyson surement (enzymatic activity/volume) 63 U/L 40-136 Serum or plasma aspartate aminotransfera se measurement (enzymatic activity/volume) 19 U/L 5-34 Serum or plasma alanine aminotransferase measurement (enzymatic activity/volume) 12 U/L 0-55 Serum or plasma protein measurement (mass/volume) 6.7 g/dL 6.4-8.2 Serum or plasma albumin measurement (mass/volume) 3.7 g/dL 3.2-4.5 THYROID STIMULATING HORMONE - 05/23/16 1 1:17 THYROID STIMULATING HORMONE 1.43 u[iU]/mL 0.35-4.94 Serum or plasma thyroxine (T4) free josiah urement (mass/volume) - 05/23/16 11:17 Serum or plasma thyroxine (T4) free measurement (mass/ volume) 1.00 ng/dL 0.70-1.48 Bacterial urine culture - 05/23/16 11:17 URINE CULTURE RESULTS <10,000/ML NR Streptococcus pyogenes antigen detection - 06/24/16 10:33 Streptococcus pyogenes antigen detection NEGATIVE NEGATIVE Bacterial throat culture - 06/24/16 10:3 3 Bacterial throat culture NBS NRG CBC With Differential/Platelet - 7 10:15 WBC 8.5 x10E3/uL 3.4-10.8 RBC 4.46 x10E6/uL 3.77-5.28 Hemoglobin 12.5 g/dL 11.1-15.9 Hematocrit 37.6 % 34.0-46.6 MCV 84 fL 79-97 MCH 28.0 pg 26.6-33.0 MCHC 33.2 g/dL 31.5-35.7 RDW 14.2 % 12.3-15.4 Platelets 298 x10E3/uL 150-379 Neutrophils 64 % Lymphs 30 % Monocytes 4 % Eos 2 % Basos 0 % Neutrophils (Absolute) 5.4 x10E3/uL 1.4- 7.0 Lymphs (Absolute) 2.6 x10E3/uL 0.7-3.1 Monocytes(Absolute) 0.4 x10E3/uL 0.1-0.9 Eos (Absolute) 0.2 x10E3/uL 0.0-0.4 Baso (Absolute) 0.0 x10E3/uL 0.0-0.2 Immature Granulocytes 0 % Immature Grans (Abs) 0.0 x10E3/uL 0.0-0. 1 Comp. Metabolic Panel (14) - 07/25/16 10 :15 Glucose, Serum 84 mg/dL 65-99 BUN 10 mg/dL 6-20 Creatinine, Serum 0.61 mg/dL 0.57-1.00 eGFR If NonAfricn Am 120 mL/min/1.73 >59 eGFR If Africn Am 139 mL/min/1.73 >5 9 BUN/Creatinine Ratio 16 8-20 Sodium, Serum 141 mmol/L 134-144 Potassium, Serum 4.3 mmol/L 3.5-5.2 Chloride, Serum 101 mmol/L 96-106 Carbon Dioxide, Total 26 mmol/L 18-29 Calcium, Serum 9.2 mg/dL 8.7-10.2 Protein, Total, Serum 6.7 g/dL 6.0-8.5 Albumin, Serum 4.1 g/dL 3.5-5.5 Globulin, Total 2.6 g/dL 1.5-4.5 A/G Ratio 1.6 1.1-2.5 Bilirubin, Total 0.2 mg/dL 0.0-1.2 Alkaline Phosphatase, S 58 IU/L 39-117 AST (SGOT) 21 IU/L 0-40 ALT (SGPT) 14 IU/L 0-32 TSH - 07/25/16 10:15 TSH 2.610 uIU/mL 0.450-4.500 Complete blood count (CBC) with automate d white blood cell (WBC) differential - 08/05/16 12:40 Blood leukocytes automated count (number/volume) 9.6 10*3/uL 4.3-11.0 Blood erythrocytes automated count (number/volume) 4.52 10*6/uL 4.35-5.85 Venous blood hemoglobin measurement (mass/volume) 12.8 g/dL 11.5-16.0 Blood hematocrit (volume fraction) 38 % 35-52 Automated erythrocyte mean corpuscular volume 85 [ foz_us] 80-99 Automated erythrocyte mean corpuscular h emoglobin (mass per erythrocyte) 28 pg 25-34 Automated erythrocyte mean corpuscular h emoglobin concentration measurement (mass/volume) 33 g/dL 32-36 Automated erythrocyte distribution width ratio 13. 3 % 10.0- 14.5 Automated blood platelet count (count/volume) 301 10*3/uL [...] 10*3 1.0-4.0 Blood monocytes automated count (number/volume) 0. 4 10*3 0.0-1.0 Automated eosinophil count 0.2 10*3/uL 0 .0-0.3 Automated blood basophil count (count/volume) 0.0 10*3/uL 0.0-0.1 Comprehensive metabolic panel - 08/05/16 12:40 Serum or plasma sodium measurement (moles/volume) 140 mmol/L 135-145 Serum or plasma potassium measurement (moles/volume) 4.0 mmol/L 3.6-5.0 Serum or plasma chloride measurement (moles/volume) 105 mmol/L 98-107 Carbon dioxide 25 mmol/L 21-32 Serum or plasma anion gap determination (moles/volume) 10 mmol/L 5-14 Serum or plasma urea nitrogen measurement (mass/volume ) 11 mg/dL 7-18 Serum or plasma creatinine measurement (mass/volume) 0.75 mg/dL 0.60-1.30 Serum or plasma urea nitrogen/creatinine mass ratio 15 NRG Serum or plasma creatinine measurement w ith calculation of estimated glomerular filtration rate > NRG Serum or plasma glucose measurement (mass/volume) 83 mg/dL 70-105 Serum or plasma calcium measurement (mass/volume) 9.1 mg/dL 8.5-10.1 Serum or plasma total bilirubin measurement (mass/volu me) 0.4 mg/dL 0.1-1.0 Serum or plasma alkaline phosphatase allyson surement (enzymatic activity/volume) 61 U/L 40-136 Serum or plasma aspartate aminotransfera se measurement (enzymatic activity/volume) 20 U/L 5-34 Serum or plasma alanine aminotransferase measurement (enzymatic activity/volume) 14 U/L 0-55 Serum or plasma protein measurement (mass/volume) 7.0 g/dL 6.4-8.2 Serum or plasma albumin measurement (mass/volume) 3.8 g/dL 3.2-4.5 Lipase - 08/05/16 12:40 Lipase 26 U/L 8-78 Serum or plasma C reactive protein measu rement (mass/volume) - 08/05/16 12:40 Serum or plasma C reactive protein measurement (mass/v olume) 1.68 mg/dL 0.00-0.50 Complete urinalysis with reflex to cultu re - 08/05/16 13:15 Urine color determination YELLOW NRG Urine clarity determination CLEAR NR G Urine pH measurement by test strip 5 5-9 Specific gravity of urine by test strip 1.025 1.016-1.022 Urine protein assay by test strip, semi-quantitative 1+ NEGATIVE Urine glucose detection by automated test strip NE GATIVE NEGATIVE Erythrocytes detection in urine sediment by light micr oscopy NEGATIVE NEGATIVE Urine ketones detection by automated test strip NE GATIVE NEGATIVE Urine nitrite detection by test strip NEGATIVE NEGATIVE Urine total bilirubin detection by test strip NEGA TIVE NEGATIVE Urine urobilinogen measurement by automated test strip (mass/volume) NORMAL NORMAL Urine leukocyte esterase detection by dipstick NEG ATIVE NEGATIVE Automated urine sediment erythrocyte cou nt by microscopy (number/high power field) NONE NRG Automated urine sediment leukocyte count by microscopy (number/high power field) RARE NRG Bacteria detection in urine sediment by light microsco py LARGE NRG Squamous epithelial cells detection in u rine sediment by light microscopy TNTC NRG Crystals detection in urine sediment by light microsco py NONE NRG Casts detection in urine sediment by light microscopy NONE NRG Mucus detection in urine sediment by light microscopy LARGE NRG Complete urinalysis with reflex to culture NO NRG Lipid Panel - 08/14/16 09:31 Cholesterol, Total 229 mg/dL 100-199 Triglycerides 286 mg/dL 0-149 HDL Cholesterol 48 mg/dL >39 VLDL Cholesterol Dani 57 mg/dL 5-40 LDL Cholesterol Calc 124 mg/dL 0-99 Complete blood count (CBC) with automate d white blood cell (WBC) differential - 10/11/16 17:15 Blood leukocytes automated count (number/volume) 10.1 10*3/uL 4.3-11.0 Blood erythrocytes automated count (number/volume) 4.58 10*6/uL 4.35-5.85 Venous blood hemoglobin measurement (mass/volume) 12.8 g/dL 11.5-16.0 Blood hematocrit (volume fraction) 39 % 35-52 Automated erythrocyte mean corpuscular volume 85 [ foz_us] 80-99 Automated erythrocyte mean corpuscular h emoglobin (mass per erythrocyte) 28 pg 25-34 Automated erythrocyte mean corpuscular h emoglobin concentration measurement (mass/volume) 33 g/dL 32-36 Automated erythrocyte distribution width ratio 13. 1 % 10.0- 14.5 Automated blood platelet count (count/volume) 335 10*3/uL [...] 10*3 1.0-4.0 Blood monocytes automated count (number/volume) 0. 4 10*3 0.0-1.0 Automated eosinophil count 0.2 10*3/uL 0 .0-0.3 Automated blood basophil count (count/volume) 0.0 10*3/uL 0.0-0.1 Complete urinalysis with reflex to cultu re - 10/11/16 17:15 Urine color determination YELLOW NRG Urine clarity determination SLIGHTLY CLOUDY NRG Urine pH measurement by test strip 6 5-9 Specific gravity of urine by test strip 1.025 1.016-1.022 Urine protein assay by test strip, semi-quantitative NEGATIVE NEGATIVE Urine glucose detection by automated test strip NE GATIVE NEGATIVE Erythrocytes detection in urine sediment by light micr oscopy NEGATIVE NEGATIVE Urine ketones detection by automated test strip NE GATIVE NEGATIVE Urine nitrite detection by test strip NEGATIVE NEGATIVE Urine total bilirubin detection by test strip NEGA TIVE NEGATIVE Urine urobilinogen measurement by automated test strip (mass/volume) NORMAL NORMAL Urine leukocyte esterase detection by dipstick 1+ NEGATIVE Automated urine sediment erythrocyte cou nt by microscopy (number/high power field) NONE NRG Automated urine sediment leukocyte count by microscopy (number/high power field) [HPF] NRG Bacteria detection in urine sediment by light microsco py FEW NRG Squamous epithelial cells detection in u rine sediment by light microscopy 25-50 NRG Crystals detection in urine sediment by light microsco py NONE NRG Casts detection in urine sediment [...] 5-14 Serum or plasma urea nitrogen measurement (mass/volume ) 11 mg/dL 7-18 Serum or plasma creatinine measurement (mass/volume) 0.78 mg/dL 0.60-1.30 Serum or plasma urea nitrogen/creatinine mass ratio 14 NRG Serum or plasma creatinine measurement w ith calculation of estimated glomerular filtration rate > NRG Serum or plasma glucose measurement (mass/volume) 83 mg/dL 70-105 Serum or plasma calcium measurement (mass/volume) 9.3 mg/dL 8.5-10.1 Serum or plasma total bilirubin measurement (mass/volu me) 0.3 mg/dL 0.1-1.0 Serum or plasma alkaline phosphatase allyson surement (enzymatic activity/volume) 56 U/L 40-136 Serum or plasma aspartate aminotransfera se measurement (enzymatic activity/volume) 23 U/L 5-34 Serum or plasma alanine aminotransferase measurement (enzymatic activity/volume) 25 U/L 0-55 Serum or plasma protein measurement (mass/volume) 7.2 g/dL 6.4-8.2 Serum or plasma albumin measurement (mass/volume) 4.1 g/dL 3.2-4.5 Serum or plasma amylase measurement (enz ymatic activity/volume) - 10/11/16 17:15 Serum or plasma amylase measurement (enzymatic activit y/volume) 47 U/L 25-125 Lipase - 10/11/16 17:15 Lipase 26 U/L 8-78 Erythrocyte sedimentation rate by aaron gren method - 10/11/16 17:15 Erythrocyte sedimentation rate by westergren method 29 mm 0- 20 Hepatitis Panel (4) - 11/06/16 10:24 HBsAg Screen Negative Negative Hep A Ab, IgM Negative Negative Hep B Core Ab, IgM Negative Negative Hep C Virus Ab <0.1 s/co ratio 0.0-0.9 Streptococcus pyogenes antigen detection - 12/01/16 16:45 Streptococcus pyogenes antigen detection NEGATIVE NEGATIVE Bacterial throat culture - 12/01/16 16:4 5 Bacterial throat culture NBS NRG Complete urinalysis with reflex to cultu re - 12/01/16 17:16 Urine color determination YELLOW NRG Urine clarity determination SLIGHTLY CLOUDY NRG Urine pH measurement by test strip 5 5-9 Specific gravity of urine by test strip 1.020 1.016-1.022 Urine protein assay by test strip, semi-quantitative NEGATIVE NEGATIVE Urine glucose detection by automated test strip NE GATIVE NEGATIVE Erythrocytes detection in urine sediment by light micr oscopy NEGATIVE NEGATIVE Urine ketones detection by automated test strip NE GATIVE NEGATIVE Urine nitrite detection by test strip NEGATIVE NEGATIVE Urine total bilirubin detection by test strip NEGA TIVE NEGATIVE Urine urobilinogen measurement by automated test strip (mass/volume) NORMAL NORMAL Urine leukocyte esterase detection by dipstick NEG ATIVE NEGATIVE Automated urine sediment erythrocyte cou nt by microscopy (number/high power field) NONE NRG Automated urine sediment leukocyte count by microscopy (number/high power field) [HPF] NRG Bacteria detection in urine sediment by light microsco py FEW NRG Squamous epithelial cells detection in u rine sediment by light microscopy 5-10 NRG Crystals detection in urine sediment by light microsco py NONE NRG Casts detection in urine sediment by light microscopy NONE NRG Mucus detection in urine sediment by light microscopy LARGE NRG Complete urinalysis with reflex to culture YES NRG Bacterial urine culture - 12/01/16 17:16 URINE CULTURE RESULTS 10,000/ML - 100,000/ML NRG Complete blood count (CBC) with automate d white blood cell (WBC) differential - 12/01/16 18:18 Blood leukocytes automated count (number/volume) 11.3 10*3/uL 4.3-11.0 Blood erythrocytes automated count (number/volume) 4.36 10*6/uL 4.35-5.85 Venous blood hemoglobin measurement (mass/volume) 12.2 g/dL 11.5-16.0 Blood hematocrit (volume fraction) 37 % 35-52 Automated erythrocyte mean corpuscular volume 86 [ foz_us] 80-99 Automated erythrocyte mean corpuscular h emoglobin (mass per erythrocyte) 28 pg 25-34 Automated erythrocyte mean corpuscular h emoglobin concentration measurement (mass/volume) 33 g/dL 32-36 Automated erythrocyte distribution width ratio 13. 2 % 10.0- 14.5 Automated blood platelet count (count/volume) 299 10*3/uL [...] 10*3 1.0-4.0 Blood monocytes automated count (number/volume) 0. 4 10*3 0.0-1.0 Automated eosinophil count 0.2 10*3/uL 0 .0-0.3 Automated blood basophil count (count/volume) 0.0 10*3/uL 0.0-0.1 Comprehensive metabolic panel - 12/01/16 18:18 Serum or plasma sodium measurement (moles/volume) 142 mmol/L 135-145 Serum or plasma potassium measurement (moles/volume) 3.9 mmol/L 3.6-5.0 Serum or plasma chloride measurement (moles/volume) 106 mmol/L 98-107 Carbon dioxide 25 mmol/L 21-32 Serum or plasma anion gap determination (moles/volume) 11 mmol/L 5-14 Serum or plasma urea nitrogen measurement (mass/volume ) 9 mg/dL 7-18 Serum or plasma creatinine measurement (mass/volume) 0.70 mg/dL 0.60-1.30 Serum or plasma urea nitrogen/creatinine mass ratio 13 0-20 Serum or plasma creatinine measurement w ith calculation of estimated glomerular filtration rate > NRG Serum or plasma glucose measurement (mass/volume) 98 mg/dL 70-105 Serum or plasma calcium measurement (mass/volume) 9.1 mg/dL 8.5-10.1 Serum or plasma total bilirubin measurement (mass/volu me) 0.4 mg/dL 0.1-1.0 Serum or plasma alkaline phosphatase allyson surement (enzymatic activity/volume) 61 U/L 40-136 Serum or plasma aspartate aminotransfera se measurement (enzymatic activity/volume) 22 U/L 5-34 Serum or plasma alanine aminotransferase measurement (enzymatic activity/volume) 16 U/L 0-55 Serum or plasma protein measurement (mass/volume) 7.1 g/dL 6.4-8.2 Serum or plasma albumin measurement (mass/volume) 3.8 g/dL 3.2-4.5 Serum or plasma C reactive protein measu rement (mass/volume) - 12/01/16 18:18 Serum or plasma C reactive protein measurement (mass/v olume) 1.54 mg/dL 0.00-0.50 Folate (Folic Acid), Serum - 01/03/17 10 :28 Folate (Folic Acid), Serum 13.0 ng/mL >3 .0 Vitamin D, 25-Hydroxy - 01/03/17 10:28 Vitamin D, 25-Hydroxy 29.4 ng/mL 30.0-10 0.0 Vitamin B12 - 01/03/17 10:28 Vitamin B12 352 pg/mL 211-946 Complete urinalysis with reflex to cultu re - 03/07/17 09:00 Urine color determination YELLOW NRG Urine clarity determination VERY CLOUDY NRG Urine pH measurement by test strip 5 5-9 Specific gravity of urine by test strip 1.020 1.016-1.022 Urine protein assay by test strip, semi-quantitative 1+ NEGATIVE Urine glucose detection by automated test strip NE GATIVE NEGATIVE Erythrocytes detection in urine sediment by light micr oscopy NEGATIVE NEGATIVE Urine ketones detection by automated test strip NE GATIVE NEGATIVE Urine nitrite detection by test strip NEGATIVE NEGATIVE Urine total bilirubin detection by test strip NEGA TIVE NEGATIVE Urine urobilinogen measurement by automated test strip (mass/volume) NORMAL NORMAL Urine leukocyte esterase detection by dipstick 1+ NEGATIVE Automated urine sediment erythrocyte cou nt by microscopy (number/high power field) NONE NRG Automated urine sediment leukocyte count by microscopy (number/high power field) [HPF] NRG Bacteria detection in urine sediment by light microsco py FEW NRG Squamous epithelial cells detection in u rine sediment by light microscopy 10-25 NRG Crystals detection in urine sediment by light microsco py NONE NRG Casts detection in urine sediment by light microscopy NONE NRG Mucus detection in urine sediment by light microscopy NEGATIVE NRG Complete urinalysis with reflex to culture YES NRG Bacterial urine culture - 03/07/17 09:00 URINE CULTURE RESULTS <10,000/ML NRG Complete blood count (CBC) with automate d white blood cell (WBC) differential - 03/07/17 09:25 Blood leukocytes automated count (number/volume) 8.7 10*3/uL 4.3-11.0 Blood erythrocytes automated count (number/volume) 4.38 10*6/uL 4.35-5.85 Venous blood hemoglobin measurement (mass/volume) 12.3 g/dL 11.5-16.0 Blood hematocrit (volume fraction) 37 % 35-52 Automated erythrocyte mean corpuscular volume 85 [ foz_us] 80-99 Automated erythrocyte mean corpuscular h emoglobin (mass per erythrocyte) 28 pg 25-34 Automated erythrocyte mean corpuscular h emoglobin concentration measurement (mass/volume) 33 g/dL 32-36 Automated erythrocyte distribution width ratio 13. 2 % 10.0- 14.5 Automated blood platelet count (count/volume) 286 10*3/uL [...] 10*3 1.0-4.0 Blood monocytes automated count (number/volume) 0. 4 10*3 0.0-1.0 Automated eosinophil count 0.2 10*3/uL 0 .0-0.3 Automated blood basophil count (count/volume) 0.0 10*3/uL 0.0-0.1 Comprehensive metabolic panel - 03/07/17 09:25 Serum or plasma sodium measurement (moles/volume) 138 mmol/L 135-145 Serum or plasma potassium measurement (moles/volume) 4.2 mmol/L 3.6-5.0 Serum or plasma chloride measurement (moles/volume) 105 mmol/L 98-107 Carbon dioxide 22 mmol/L 21-32 Serum or plasma anion gap determination (moles/volume) 11 mmol/L 5-14 Serum or plasma urea nitrogen measurement (mass/volume ) 9 mg/dL 7-18 Serum or plasma creatinine measurement (mass/volume) 0.67 mg/dL 0.60-1.30 Serum or plasma urea nitrogen/creatinine mass ratio 13 NRG Serum or plasma creatinine measurement w ith calculation of estimated glomerular filtration rate > NRG Serum or plasma glucose measurement (mass/volume) 93 mg/dL 70-105 Serum or plasma calcium measurement (mass/volume) 8.7 mg/dL 8.5-10.1 Serum or plasma total bilirubin measurement (mass/volu me) 0.4 mg/dL 0.1-1.0 Serum or plasma alkaline phosphatase allyson surement (enzymatic activity/volume) 55 U/L 40-136 Serum or plasma aspartate aminotransfera se measurement (enzymatic activity/volume) 44 U/L 5-34 Serum or plasma alanine aminotransferase measurement (enzymatic activity/volume) 21 U/L 0-55 Serum or plasma protein measurement (mass/volume) 7.3 g/dL 6.4-8.2 Serum or plasma albumin measurement (mass/volume) 3.7 g/dL 3.2-4.5 Lipase - 03/07/17 09:25 Lipase 27 U/L 8-78 Fibrin D-dimer FEU measurement in platel et poor plasma (mass/volume) - 03/07/17 09:25 Fibrin D-dimer FEU measurement in platelet poor plasma (mass/volume) 0.34 ug/mL 0.00-0.49 Complete blood count (CBC) with automate d white blood cell (WBC) differential - 03/14/17 02:25 Blood leukocytes automated count (number/volume) 11.0 10*3/uL 4.3-11.0 Blood erythrocytes automated count (number/volume) 4.51 10*6/uL 4.35-5.85 Venous blood hemoglobin measurement (mass/volume) 12.7 g/dL 11.5-16.0 Blood hematocrit (volume fraction) 38 % 35-52 Automated erythrocyte mean corpuscular volume 85 [ foz_us] 80-99 Automated erythrocyte mean corpuscular h emoglobin (mass per erythrocyte) 28 pg 25-34 Automated erythrocyte mean corpuscular h emoglobin concentration measurement (mass/volume) 33 g/dL 32-36 Automated erythrocyte distribution width ratio 13. 2 % 10.0- 14.5 Automated blood platelet count (count/volume) 303 10*3/uL [...] 10*3 1.0-4.0 Blood monocytes automated count (number/volume) 0. 6 10*3 0.0-1.0 Automated eosinophil count 0.2 10*3/uL 0 .0-0.3 Automated blood basophil count (count/volume) 0.0 10*3/uL 0.0-0.1 Complete urinalysis with reflex to cultu re - 03/14/17 02:25 Urine color determination YELLOW NRG Urine clarity determination CLEAR NR G Urine pH measurement by test strip 6 5-9 Specific gravity of urine by test strip 1.020 1.016-1.022 Urine protein assay by test strip, semi-quantitative NEGATIVE NEGATIVE Urine glucose detection by automated test strip NE GATIVE NEGATIVE Erythrocytes detection in urine sediment by light micr oscopy NEGATIVE NEGATIVE Urine ketones detection by automated test strip NE GATIVE NEGATIVE Urine nitrite detection by test strip NEGATIVE NEGATIVE Urine total bilirubin detection by test strip NEGA TIVE NEGATIVE Urine urobilinogen measurement by automated test strip (mass/volume) NORMAL NORMAL Urine leukocyte esterase detection by dipstick NEG ATIVE NEGATIVE Automated urine sediment erythrocyte cou nt by microscopy (number/high power field) NONE NRG Automated urine sediment leukocyte count by microscopy (number/high power field) NONE NRG Bacteria detection in urine sediment by light microsco py TRACE NRG Squamous epithelial cells detection in u rine sediment by light microscopy 2-5 NRG Crystals detection in urine sediment by light microsco py NONE NRG Casts detection in urine sediment [...] 5-14 Serum or plasma urea nitrogen measurement (mass/volume ) 10 mg/dL 7-18 Serum or plasma creatinine measurement (mass/volume) 0.72 mg/dL 0.60-1.30 Serum or plasma urea nitrogen/creatinine mass ratio 14 NRG Serum or plasma creatinine measurement w ith calculation of estimated glomerular filtration rate > NRG Serum or plasma glucose measurement (mass/volume) 98 mg/dL 70-105 Serum or plasma calcium measurement (mass/volume) 9.1 mg/dL 8.5-10.1 Serum or plasma total bilirubin measurement (mass/volu me) 0.3 mg/dL 0.1-1.0 Serum or plasma alkaline phosphatase allyson surement (enzymatic activity/volume) 62 U/L 40-136 Serum or plasma aspartate aminotransfera se measurement (enzymatic activity/volume) 27 U/L 5-34 Serum or plasma alanine aminotransferase measurement (enzymatic activity/volume) 18 U/L 0-55 Serum or plasma protein measurement (mass/volume) 7.8 g/dL 6.4-8.2 Serum or plasma albumin measurement (mass/volume) 4.1 g/dL 3.2-4.5 Serum or plasma amylase measurement (enz ymatic activity/volume) - 03/14/17 02:25 Serum or plasma amylase measurement (enzymatic activit y/volume) 48 U/L 25-125 Lipase - 03/14/17 02:25 Lipase 35 U/L 8-78 Complete urinalysis with reflex to cultu re - 04/13/17 16:39 Urine color determination YELLOW NRG Urine clarity determination CLEAR NR G Urine pH measurement by test strip 5 5-9 Specific gravity of urine by test strip 1.015 1.016-1.022 Urine protein assay by test strip, semi-quantitative NEGATIVE NEGATIVE Urine glucose detection by automated test strip NE GATIVE NEGATIVE Erythrocytes detection in urine sediment by light micr oscopy NEGATIVE NEGATIVE Urine ketones detection by automated test strip NE GATIVE NEGATIVE Urine nitrite detection by test strip NEGATIVE NEGATIVE Urine total bilirubin detection by test strip NEGA TIVE NEGATIVE Urine urobilinogen measurement by automated test strip (mass/volume) NORMAL NORMAL Urine leukocyte esterase detection by dipstick NEG ATIVE NEGATIVE Automated urine sediment erythrocyte cou nt by microscopy (number/high power field) NONE NRG Automated urine sediment leukocyte count by microscopy (number/high power field) NONE NRG Bacteria detection in urine sediment by light microsco py NEGATIVE NRG Squamous epithelial cells detection in u rine sediment by light microscopy 25-50 NRG Crystals detection in urine sediment by light microsco py NONE NRG Casts detection in urine sediment by light microscopy NONE NRG Mucus detection in urine sediment by light microscopy NEGATIVE NRG Complete urinalysis with reflex to culture NO NRG Complete blood count (CBC) with automate d white blood cell (WBC) differential - 04/13/17 16:43 Blood leukocytes automated count (number/volume) 13.3 10*3/uL 4.3-11.0 Blood erythrocytes automated count (number/volume) 4.42 10*6/uL 4.35-5.85 Venous blood hemoglobin measurement (mass/volume) 12.6 g/dL 11.5-16.0 Blood hematocrit (volume fraction) 38 % 35-52 Automated erythrocyte mean corpuscular volume 86 [ foz_us] 80-99 Automated erythrocyte mean corpuscular h emoglobin (mass per erythrocyte) 29 pg 25-34 Automated erythrocyte mean corpuscular h emoglobin concentration measurement (mass/volume) 33 g/dL 32-36 Automated erythrocyte distribution width ratio 13. 3 % 10.0- 14.5 Automated blood platelet count (count/volume) 327 10*3/uL [...] 10*3 1.0-4.0 Blood monocytes automated count (number/volume) 0. 6 10*3 0.0-1.0 Automated eosinophil count 0.4 10*3/uL 0 .0-0.3 Automated blood basophil count (count/volume) 0.0 10*3/uL 0.0-0.1 Comprehensive metabolic panel - 04/13/17 16:43 Serum or plasma sodium measurement (moles/volume) 137 mmol/L 135-145 Serum or plasma potassium measurement (moles/volume) 3.6 mmol/L 3.6-5.0 Serum or plasma chloride measurement (moles/volume) 97 mmol/L 98-107 Carbon dioxide 27 mmol/L 21-32 Serum or plasma anion gap determination (moles/volume) 13 mmol/L 5-14 Serum or plasma urea nitrogen measurement (mass/volume ) 15 mg/dL 7-18 Serum or plasma creatinine measurement (mass/volume) 1.07 mg/dL 0.60-1.30 Serum or plasma urea nitrogen/creatinine mass ratio 14 NRG Serum or plasma creatinine measurement w ith calculation of estimated glomerular filtration rate 59 NRG Serum or plasma glucose measurement (mass/volume) 86 mg/dL 70-105 Serum or plasma calcium measurement (mass/volume) 9.5 mg/dL 8.5-10.1 Serum or plasma total bilirubin measurement (mass/volu me) 0.4 mg/dL 0.1-1.0 Serum or plasma alkaline phosphatase allyson surement (enzymatic activity/volume) 63 U/L 40-136 Serum or plasma aspartate aminotransfera se measurement (enzymatic activity/volume) 26 U/L 5-34 Serum or plasma alanine aminotransferase measurement (enzymatic activity/volume) 20 U/L 0-55 Serum or plasma protein measurement (mass/volume) 7.6 g/dL 6.4-8.2 Serum or plasma albumin measurement (mass/volume) 3.9 g/dL 3.2-4.5 Lipase - 04/13/17 16:43 Lipase 170 U/L 8-78 Complete blood count (CBC) with automate d white blood cell (WBC) differential - 04/30/17 01:34 Blood leukocytes automated count (number/volume) 8.9 10*3/uL 4.3-11.0 Blood erythrocytes automated count (number/volume) 4.33 10*6/uL 4.35-5.85 Venous blood hemoglobin measurement (mass/volume) 12.1 g/dL 11.5-16.0 Blood hematocrit (volume fraction) 37 % 35-52 Automated erythrocyte mean corpuscular volume 85 [ foz_us] 80-99 Automated erythrocyte mean corpuscular h emoglobin (mass per erythrocyte) 28 pg 25-34 Automated erythrocyte mean corpuscular h emoglobin concentration measurement (mass/volume) 33 g/dL 32-36 Automated erythrocyte distribution width ratio 13. 4 % 10.0- 14.5 Automated blood platelet count (count/volume) 310 10*3/uL [...] 10*3 1.0-4.0 Blood monocytes automated count (number/volume) 0. 4 10*3 0.0-1.0 Automated eosinophil count 0.8 10*3/uL 0 .0-0.3 Automated blood basophil count (count/volume) 0.1 10*3/uL 0.0-0.1 Comprehensive metabolic panel - 04/30/17 01:34 Serum or plasma sodium measurement (moles/volume) 140 mmol/L 135-145 Serum or plasma potassium measurement (moles/volume) 4.1 mmol/L 3.6-5.0 Serum or plasma chloride measurement (moles/volume) 104 mmol/L 98-107 Carbon dioxide 26 mmol/L 21-32 Serum or plasma anion gap determination (moles/volume) 10 mmol/L 5-14 Serum or plasma urea nitrogen measurement (mass/volume ) 13 mg/dL 7-18 Serum or plasma creatinine measurement (mass/volume) 0.96 mg/dL 0.60-1.30 Serum or plasma urea nitrogen/creatinine mass ratio 14 NRG Serum or plasma creatinine measurement w ith calculation of estimated glomerular filtration rate > NRG Serum or plasma glucose measurement (mass/volume) 96 mg/dL 70-105 Serum or plasma calcium measurement (mass/volume) 8.9 mg/dL 8.5-10.1 Serum or plasma total bilirubin measurement (mass/volu me) 0.3 mg/dL 0.1-1.0 Serum or plasma alkaline phosphatase allyson surement (enzymatic activity/volume) 60 U/L 40-136 Serum or plasma aspartate aminotransfera se measurement (enzymatic activity/volume) 31 U/L 5-34 Serum or plasma alanine aminotransferase measurement (enzymatic activity/volume) 24 U/L 0-55 Serum or plasma protein measurement (mass/volume) 7.0 g/dL 6.4-8.2 Serum or plasma albumin measurement (mass/volume) 3.8 g/dL 3.2-4.5 Complete urinalysis with reflex to cultu re - 04/30/17 02:13 Urine color determination YELLOW NRG Urine clarity determination CLEAR NR G Urine pH measurement by test strip 7 5-9 Specific gravity of urine by test strip 1.010 1.016-1.022 Urine protein assay by test strip, semi-quantitative NEGATIVE NEGATIVE Urine glucose detection by automated test strip NE GATIVE NEGATIVE Erythrocytes detection in urine sediment by light micr oscopy NEGATIVE NEGATIVE Urine ketones detection by automated test strip NE GATIVE NEGATIVE Urine nitrite detection by test strip NEGATIVE NEGATIVE Urine total bilirubin detection by test strip NEGA TIVE NEGATIVE Urine urobilinogen measurement by automated test strip (mass/volume) NORMAL NORMAL Urine leukocyte esterase detection by dipstick NEG ATIVE NEGATIVE Automated urine sediment erythrocyte cou nt by microscopy (number/high power field) NONE NRG Automated urine sediment leukocyte count by microscopy (number/high power field) NONE NRG Bacteria detection in urine sediment by light microsco py TRACE NRG Squamous epithelial cells detection in u rine sediment by light microscopy 2-5 NRG Crystals detection in urine sediment by light microsco py NONE NRG Casts detection in urine sediment by light microscopy NONE NRG Mucus detection in urine sediment by light microscopy NEGATIVE NRG Complete urinalysis with reflex to culture NO NRG Urine drug screening test - 04/30/17 02: 13 Urine phencyclidine detection by screening method NEGATIVE NEGATIVE Urine benzodiazepines detection by screening method POSITIVE NEGATIVE Urine cocaine detection NEGATIVE NEGATI VE Urine amphetamines detection by screening method N EGATIVE NEGATIVE Urine methamphetamine detection by screening method NEGATIVE NEGATIVE Urine cannabinoids detection by screening method N EGATIVE NEGATIVE Urine opiates detection by screening method NEGATI VE NEGATIVE Urine barbiturates detection NEGATIVE N EGATIVE Screening urine tricyclic antidepressants detection NEGATIVE NEGATIVE Urine methadone detection by screening method NEGA TIVE NEGATIVE Urine oxycodone detection NEGATIVE NEGA TIVE Urine propoxyphene detection NEGATIVE N EGATIVE Complete blood count (CBC) with automate d white blood cell (WBC) differential - 05/30/17 14:20 Blood leukocytes automated count (number/volume) 10.1 10*3/uL 4.3-11.0 Blood erythrocytes automated count (number/volume) 4.32 10*6/uL 4.35-5.85 Venous blood hemoglobin measurement (mass/volume) 12.3 g/dL 11.5-16.0 Blood hematocrit (volume fraction) 37 % 35-52 Automated erythrocyte mean corpuscular volume 85 [ foz_us] 80-99 Automated erythrocyte mean corpuscular h emoglobin (mass per erythrocyte) 29 pg 25-34 Automated erythrocyte mean corpuscular h emoglobin concentration measurement (mass/volume) 34 g/dL 32-36 Automated erythrocyte distribution width ratio 13. 4 % 10.0- 14.5 Automated blood platelet count (count/volume) 303 10*3/uL [...] 10*3 1.0-4.0 Blood monocytes automated count (number/volume) 0. 4 10*3 0.0-1.0 Automated eosinophil count 0.4 10*3/uL 0 .0-0.3 Automated blood basophil count (count/volume) 0.0 10*3/uL 0.0-0.1 Whole blood basic metabolic panel - 05/17 10/01 14:20 Serum or plasma sodium measurement (moles/volume) 139 mmol/L 135-145 Serum or plasma potassium measurement (moles/volume) 3.6 mmol/L 3.6-5.0 Serum or plasma chloride measurement (moles/volume) 104 mmol/L 98-107 Carbon dioxide 27 mmol/L 21-32 Serum or plasma anion gap determination (moles/volume) 8 mmol/L 5-14 Serum or plasma urea nitrogen measurement (mass/volume ) 13 mg/dL 7-18 Serum or plasma creatinine measurement (mass/volume) 0.84 mg/dL 0.60-1.30 Serum or plasma urea nitrogen/creatinine mass ratio 15 NRG Serum or plasma creatinine measurement w ith calculation of estimated glomerular filtration rate > NRG Serum or plasma glucose measurement (mass/volume) 120 mg/dL 70-105 Serum or plasma calcium measurement (mass/volume) 9.1 mg/dL 8.5-10.1 Lipase - 05/30/17 14:20 Lipase 34 U/L 8-78 Complete urinalysis with reflex to cultu re - 05/30/17 14:20 Urine color determination YELLOW NRG Urine clarity determination VERY CLOUDY NRG Urine pH measurement by test strip 5 5-9 Specific gravity of urine by test strip 1.020 1.016-1.022 Urine protein assay by test strip, semi-quantitative NEGATIVE NEGATIVE Urine glucose detection by automated test strip NE GATIVE NEGATIVE Erythrocytes detection in urine sediment by light micr oscopy NEGATIVE NEGATIVE Urine ketones detection by automated test strip NE GATIVE NEGATIVE Urine nitrite detection by test strip NEGATIVE NEGATIVE Urine total bilirubin detection by test strip NEGA TIVE NEGATIVE Urine urobilinogen measurement by automated test strip (mass/volume) NORMAL NORMAL Urine leukocyte esterase detection by dipstick NEG ATIVE NEGATIVE Automated urine sediment erythrocyte cou nt by microscopy (number/high power field) NONE NRG Automated urine sediment leukocyte count by microscopy (number/high power field) [HPF] NRG Bacteria detection in urine sediment by light microsco py MODERATE NRG Squamous epithelial cells detection in u rine sediment by light microscopy 25-50 NRG Crystals detection in urine sediment by light microsco py NONE NRG Casts detection in urine sediment by light microscopy NONE NRG Mucus detection in urine sediment by light microscopy NEGATIVE NRG Complete urinalysis with reflex to culture YES NRG Bacterial urine culture - 12/14/17 14:20 URINE CULTURE RESULTS >100,000/ML NRG Complete urinalysis with reflex to cultu re - 06/29/17 19:02 Urine color determination YELLOW NRG Urine clarity determination VERY CLOUDY NRG Urine pH measurement by test strip 5 5-9 Specific gravity of urine by test strip 1.020 1.016-1.022 Urine protein assay by test strip, semi-quantitative NEGATIVE NEGATIVE Urine glucose detection by automated test strip NE GATIVE NEGATIVE Erythrocytes detection in urine sediment by light micr oscopy NEGATIVE NEGATIVE Urine ketones detection by automated test strip NE GATIVE NEGATIVE Urine nitrite detection by test strip NEGATIVE NEGATIVE Urine total bilirubin detection by test strip NEGA TIVE NEGATIVE Urine urobilinogen measurement by automated test strip (mass/volume) NORMAL NORMAL Urine leukocyte esterase detection by dipstick NEG ATIVE NEGATIVE Automated urine sediment erythrocyte cou nt by microscopy (number/high power field) RARE NRG Automated urine sediment leukocyte count by microscopy (number/high power field) [HPF] NRG Bacteria detection in urine sediment by light microsco py MODERATE NRG Squamous epithelial cells detection in u rine sediment by light microscopy >50 NRG Crystals detection in urine sediment by light microsco py NONE NRG Casts detection in urine sediment by light microscopy NONE NRG Mucus detection in urine sediment by light microscopy NEGATIVE NRG Complete urinalysis with reflex to culture NO NRG Renal epithelial cells detection in urin e sediment by light microscopy NONE NRG Complete blood count (CBC) with automate d white blood cell (WBC) differential - 06/29/17 20:10 Blood leukocytes automated count (number/volume) 9.3 10*3/uL 4.3-11.0 Blood erythrocytes automated count (number/volume) 4.30 10*6/uL 4.35-5.85 Venous blood hemoglobin measurement (mass/volume) 12.1 g/dL 11.5-16.0 Blood hematocrit (volume fraction) 37 % 35-52 Automated erythrocyte mean corpuscular volume 85 [ foz_us] 80-99 Automated erythrocyte mean corpuscular h emoglobin (mass per erythrocyte) 28 pg 25-34 Automated erythrocyte mean corpuscular h emoglobin concentration measurement (mass/volume) 33 g/dL 32-36 Automated erythrocyte distribution width ratio 13. 8 % 10.0- 14.5 Automated blood platelet count (count/volume) 299 10*3/uL [...] 10*3 1.0-4.0 Blood monocytes automated count (number/volume) 0. 4 10*3 0.0-1.0 Automated eosinophil count 0.3 10*3/uL 0 .0-0.3 Automated blood basophil count (count/volume) 0.0 10*3/uL 0.0-0.1 Comprehensive metabolic panel - 06/29/17 20:10 Serum or plasma sodium measurement (moles/volume) 140 mmol/L 135-145 Serum or plasma potassium measurement (moles/volume) 3.9 mmol/L 3.6-5.0 Serum or plasma chloride measurement (moles/volume) 104 mmol/L 98-107 Carbon dioxide 25 mmol/L 21-32 Serum or plasma anion gap determination (moles/volume) 11 mmol/L 5-14 Serum or plasma urea nitrogen measurement (mass/volume ) 12 mg/dL 7-18 Serum or plasma creatinine measurement (mass/volume) 0.79 mg/dL 0.60-1.30 Serum or plasma urea nitrogen/creatinine mass ratio 15 NRG Serum or plasma creatinine measurement w ith calculation of estimated glomerular filtration rate > NRG Serum or plasma glucose measurement (mass/volume) 84 mg/dL 70-105 Serum or plasma calcium measurement (mass/volume) 9.5 mg/dL 8.5-10.1 Serum or plasma total bilirubin measurement (mass/volu me) 0.2 mg/dL 0.1-1.0 Serum or plasma alkaline phosphatase allyson surement (enzymatic activity/volume) 55 U/L 40-136 Serum or plasma aspartate aminotransfera se measurement (enzymatic activity/volume) 20 U/L 5-34 Serum or plasma alanine aminotransferase measurement (enzymatic activity/volume) 18 U/L 0-55 Serum or plasma protein measurement (mass/volume) 7.0 g/dL 6.4-8.2 Serum or plasma albumin measurement (mass/volume) 3.7 g/dL 3.2-4.5 Serum or plasma amylase measurement (enz ymatic activity/volume) - 06/29/17 20:10 Serum or plasma amylase measurement (enzymatic activit y/volume) 63 U/L 25-125 Lipase - 06/29/17 20:10 Lipase 49 U/L 8-78 Serum or plasma C reactive protein measu rement (mass/volume) - 06/29/17 20:10 Serum or plasma C reactive protein measurement (mass/v olume) 1.05 mg/dL 0.00-0.50 Influenza virus A and B antigen detectio n - 06/29/17 20:10 FLU RESULT NEGATIVE FOR INFLUENZA A AND B ANTIGENS BY IA NRG Complete urinalysis with reflex to cultu re - 07/22/17 22:30 Urine color determination YELLOW NRG Urine clarity determination SLIGHTLY CLOUDY NRG Urine pH measurement by test strip 5 5-9 Specific gravity of urine by test strip 1.025 1.016-1.022 Urine protein assay by test strip, semi-quantitative NEGATIVE NEGATIVE Urine glucose detection by automated test strip NE GATIVE NEGATIVE Erythrocytes detection in urine sediment by light micr oscopy NEGATIVE NEGATIVE Urine ketones detection by automated test strip NE GATIVE NEGATIVE Urine nitrite detection by test strip NEGATIVE NEGATIVE Urine total bilirubin detection by test strip NEGA TIVE NEGATIVE Urine urobilinogen measurement by automated test strip (mass/volume) NORMAL NORMAL Urine leukocyte esterase detection by dipstick NEG ATIVE NEGATIVE Automated urine sediment erythrocyte cou nt by microscopy (number/high power field) NONE NRG Automated urine sediment leukocyte count by microscopy (number/high power field) [HPF] NRG Bacteria detection in urine sediment by light microsco py MODERATE NRG Squamous epithelial cells detection in u rine sediment by light microscopy 5-10 NRG Crystals detection in urine sediment by light microsco py NONE NRG Casts detection in urine sediment by light microscopy NONE NRG Mucus detection in urine sediment by light microscopy NEGATIVE NRG Complete urinalysis with reflex to culture YES NRG Bacterial urine culture - 07/22/17 22:30 URINE CULTURE RESULTS <10,000/ML NRG Complete blood count (CBC) with automate d white blood cell (WBC) differential - 07/22/17 22:35 Blood leukocytes automated count (number/volume) 10.3 10*3/uL 4.3-11.0 Blood erythrocytes automated count (number/volume) 4.08 10*6/uL 4.35-5.85 Venous blood hemoglobin measurement (mass/volume) 11.9 g/dL 11.5-16.0 Blood hematocrit (volume fraction) 35 % 35-52 Automated erythrocyte mean corpuscular volume 85 [ foz_us] 80-99 Automated erythrocyte mean corpuscular h emoglobin (mass per erythrocyte) 29 pg 25-34 Automated erythrocyte mean corpuscular h emoglobin concentration measurement (mass/volume) 34 g/dL 32-36 Automated erythrocyte distribution width ratio 13. 5 % 10.0- 14.5 Automated blood platelet count (count/volume) 295 10*3/uL [...] 10*3 1.0-4.0 Blood monocytes automated count (number/volume) 0. 5 10*3 0.0-1.0 Automated eosinophil count 0.3 10*3/uL 0 .0-0.3 Automated blood basophil count (count/volume) 0.0 10*3/uL 0.0-0.1 Fibrin D-dimer FEU measurement in platel et poor plasma (mass/volume) - 07/22/17 22:35 Fibrin D-dimer FEU measurement in platelet [...] 5-14 Serum or plasma urea nitrogen measurement (mass/volume ) 16 mg/dL 7-18 Serum or plasma creatinine measurement (mass/volume) 0.83 mg/dL 0.60-1.30 Serum or plasma urea nitrogen/creatinine mass ratio 19 NRG Serum or plasma creatinine measurement w ith calculation of estimated glomerular filtration rate > NRG Serum or plasma glucose measurement (mass/volume) 84 mg/dL 70-105 Serum or plasma calcium measurement (mass/volume) 9.5 mg/dL 8.5-10.1 Serum or plasma total bilirubin measurement (mass/volu me) 0.2 mg/dL 0.1-1.0 Serum or plasma alkaline phosphatase allyson surement (enzymatic activity/volume) 54 U/L 40-136 Serum or plasma aspartate aminotransfera se measurement (enzymatic activity/volume) 24 U/L 5-34 Serum or plasma alanine aminotransferase measurement (enzymatic activity/volume) 17 U/L 0-55 Serum or plasma protein measurement (mass/volume) 7.2 g/dL 6.4-8.2 Serum or plasma albumin measurement (mass/volume) 3.8 g/dL 3.2-4.5 Serum or plasma C reactive protein measu rement (mass/volume) - 07/22/17 22:35 Serum or plasma C reactive protein measurement (mass/v olume) 0.94 mg/dL 0.00-0.50 Serum or plasma amylase measurement (enz ymatic activity/volume) - 07/22/17 22:35 Serum or plasma amylase measurement (enzymatic activit y/volume) 57 U/L 25-125 Lipase - 07/22/17 22:35 Lipase 44 U/L 8-78 Complete urinalysis with reflex to cultu re - 07/29/17 08:17 Urine color determination YELLOW NRG Urine clarity determination CLEAR NR G Urine pH measurement by test strip 6 5-9 Specific gravity of urine by test strip 1.020 1.016-1.022 Urine protein assay by test strip, semi-quantitative NEGATIVE NEGATIVE Urine glucose detection by automated test strip NE GATIVE NEGATIVE Erythrocytes detection in urine sediment by light micr oscopy NEGATIVE NEGATIVE Urine ketones detection by automated test strip NE GATIVE NEGATIVE Urine nitrite detection by test strip NEGATIVE NEGATIVE Urine total bilirubin detection by test strip NEGA TIVE NEGATIVE Urine urobilinogen measurement by automated test strip (mass/volume) NORMAL NORMAL Urine leukocyte esterase detection by dipstick NEG ATIVE NEGATIVE Automated urine sediment erythrocyte cou nt by microscopy (number/high power field) NONE NRG Automated urine sediment leukocyte count by microscopy (number/high power field) RARE NRG Bacteria detection in urine sediment by light microsco py NEGATIVE NRG Squamous epithelial cells detection in u rine sediment by light microscopy 25-50 NRG Crystals detection in urine sediment by light microsco py NONE NRG Casts detection in urine sediment by light microscopy NONE NRG Mucus detection in urine sediment by light microscopy NEGATIVE NRG Complete urinalysis with reflex to culture NO NRG Complete blood count (CBC) with automate d white blood cell (WBC) differential - 08/12/17 17:10 Blood leukocytes automated count (number/volume) 8.7 10*3/uL 4.3-11.0 Blood erythrocytes automated count (number/volume) 4.07 10*6/uL 4.35-5.85 Venous blood hemoglobin measurement (mass/volume) 11.7 g/dL 11.5-16.0 Blood hematocrit (volume fraction) 35 % 35-52 Automated erythrocyte mean corpuscular volume 85 [ foz_us] 80-99 Automated erythrocyte mean corpuscular h emoglobin (mass per erythrocyte) 29 pg 25-34 Automated erythrocyte mean corpuscular h emoglobin concentration measurement (mass/volume) 34 g/dL 32-36 Automated erythrocyte distribution width ratio 13. 4 % 10.0- 14.5 Automated blood platelet count (count/volume) 283 10*3/uL [...] 10*3 1.0-4.0 Blood monocytes automated count (number/volume) 0. 4 10*3 0.0-1.0 Automated eosinophil count 0.2 10*3/uL 0 .0-0.3 Automated blood basophil count (count/volume) 0.0 10*3/uL 0.0-0.1 Complete urinalysis with reflex to cultu re - 08/12/17 17:10 Urine color determination YELLOW NRG Urine clarity determination CLEAR NR G Urine pH measurement by test strip 5 5-9 Specific gravity of urine by test strip 1.025 1.016-1.022 Urine protein assay by test strip, semi-quantitative 1+ NEGATIVE Urine glucose detection by automated test strip NE GATIVE NEGATIVE Erythrocytes detection in urine sediment by light micr oscopy NEGATIVE NEGATIVE Urine ketones detection by automated test strip NE GATIVE NEGATIVE Urine nitrite detection by test strip NEGATIVE NEGATIVE Urine total bilirubin detection by test strip NEGA TIVE NEGATIVE Urine urobilinogen measurement by automated test strip (mass/volume) NORMAL NORMAL Urine leukocyte esterase detection by dipstick NEG ATIVE NEGATIVE Automated urine sediment erythrocyte cou nt by microscopy (number/high power field) NONE NRG Automated urine sediment leukocyte count by microscopy (number/high power field) NONE NRG Bacteria detection in urine sediment by light microsco py MODERATE NRG Squamous epithelial cells detection in u rine sediment by light microscopy 25-50 NRG Crystals detection in urine sediment by light microsco py NONE NRG Casts detection in urine sediment [...] 5-14 Serum or plasma urea nitrogen measurement (mass/volume ) 15 mg/dL 7-18 Serum or plasma creatinine measurement (mass/volume) 0.81 mg/dL 0.60-1.30 Serum or plasma urea nitrogen/creatinine mass ratio 19 NRG Serum or plasma creatinine measurement w ith calculation of estimated glomerular filtration rate > NRG Serum or plasma glucose measurement (mass/volume) 163 mg/dL 70-105 Serum or plasma calcium measurement (mass/volume) 8.7 mg/dL 8.5-10.1 Serum or plasma total bilirubin measurement (mass/volu me) 0.2 mg/dL 0.1-1.0 Serum or plasma alkaline phosphatase allyson surement (enzymatic activity/volume) 54 U/L 40-136 Serum or plasma aspartate aminotransfera se measurement (enzymatic activity/volume) 22 U/L 5-34 Serum or plasma alanine aminotransferase measurement (enzymatic activity/volume) 17 U/L 0-55 Serum or plasma protein measurement (mass/volume) 6.8 g/dL 6.4-8.2 Serum or plasma albumin measurement (mass/volume) 3.6 g/dL 3.2-4.5 Serum or plasma phosphate measurement (m ass/volume) - 08/12/17 17:10 Serum or plasma phosphate measurement (mass/volume) 2.6 mg/dL 2.3-4.7 Magnesium - 08/12/17 17:10 Magnesium 1.9 mg/dL 1.8-2.4 Lipase - 08/12/17 17:10 Lipase 41 U/L 8-78 Methicillin resistant Staphylococcus aur eus (MRSA) screening culture - 08/22/17 11:00 Methicillin resistant Staphylococcus aureus (MRSA) scr eening culture NEG NRG Complete urinalysis with reflex to cultu re - 09/02/17 21:31 Urine color determination YELLOW NRG Urine clarity determination CLEAR NR G Urine pH measurement by test strip 6 5-9 Specific gravity of urine by test strip 1.020 1.016-1.022 Urine protein assay by test strip, semi-quantitative 1+ NEGATIVE Urine glucose detection by automated test strip NE GATIVE NEGATIVE Erythrocytes detection in urine sediment by light micr oscopy NEGATIVE NEGATIVE Urine ketones detection by automated test strip NE GATIVE NEGATIVE Urine nitrite detection by test strip NEGATIVE NEGATIVE Urine total bilirubin detection by test strip NEGA TIVE NEGATIVE Urine urobilinogen measurement by automated test strip (mass/volume) NORMAL NORMAL Urine leukocyte esterase detection by dipstick NEG ATIVE NEGATIVE Automated urine sediment erythrocyte cou nt by microscopy (number/high power field) NONE NRG Automated urine sediment leukocyte count by microscopy (number/high power field) RARE NRG Bacteria detection in urine sediment by light microsco py TRACE NRG Squamous epithelial cells detection in u rine sediment by light microscopy 2-5 NRG Crystals detection in urine sediment by light microsco py NONE NRG Casts detection in urine sediment by light microscopy NONE NRG Mucus detection in urine sediment by light microscopy SMALL NRG Complete urinalysis with reflex to culture NO NRG Complete blood count (CBC) with automate d white blood cell (WBC) differential - 09/02/17 21:45 Blood leukocytes automated count (number/volume) 11.7 10*3/uL 4.3-11.0 Blood erythrocytes automated count (number/volume) 4.38 10*6/uL 4.35-5.85 Venous blood hemoglobin measurement (mass/volume) 12.5 g/dL 11.5-16.0 Blood hematocrit (volume fraction) 37 % 35-52 Automated erythrocyte mean corpuscular volume 85 [ foz_us] 80-99 Automated erythrocyte mean corpuscular h emoglobin (mass per erythrocyte) 29 pg 25-34 Automated erythrocyte mean corpuscular h emoglobin concentration measurement (mass/volume) 33 g/dL 32-36 Automated erythrocyte distribution width ratio 13. 0 % 10.0- 14.5 Automated blood platelet count (count/volume) 367 10*3/uL 130-400 Automated blood platelet mean volume measurement 9.0 [foz_us] 7.4-10.4 Automated blood neutrophils/100 leukocytes 63 % 42-75 Automated blood lymphocytes/100 leukocytes 27 % 12-44 Blood monocytes/100 leukocytes 4 % 0-12 Automated blood eosinophils/100 leukocytes 5 % 0-10 Automated blood basophils/100 leukocytes 1 % 0-10 Blood neutrophils automated count (number/volume) 7.4 10*3 1.8-7.8 Blood lymphocytes automated count (number/volume) 3.2 10*3 1.0-4.0 Blood monocytes automated count (number/volume) 0. 5 10*3 0.0-1.0 Automated eosinophil count 0.6 10*3/uL 0 .0-0.3 Automated blood basophil count (count/volume) 0.1 10*3/uL 0.0-0.1 Comprehensive metabolic panel - 09/02/17 21:45 Serum or plasma sodium measurement (moles/volume) 144 mmol/L 135-145 Serum or plasma potassium measurement (moles/volume) 4.0 mmol/L 3.6-5.0 Serum or plasma chloride measurement (moles/volume) 108 mmol/L 98-107 Carbon dioxide 27 mmol/L 21-32 Serum or plasma anion gap determination (moles/volume) 9 mmol/L 5-14 Serum or plasma urea nitrogen measurement (mass/volume ) 13 mg/dL 7-18 Serum or plasma creatinine measurement (mass/volume) 0.98 mg/dL 0.60-1.30 Serum or plasma urea nitrogen/creatinine mass ratio 13 NRG Serum or plasma creatinine measurement w ith calculation of estimated glomerular filtration rate > NRG Serum or plasma glucose measurement (mass/volume) 118 mg/dL 70-105 Serum or plasma calcium measurement (mass/volume) 9.6 mg/dL 8.5-10.1 Serum or plasma total bilirubin measurement (mass/volu me) 0.2 mg/dL 0.1-1.0 Serum or plasma alkaline phosphatase allyson surement (enzymatic activity/volume) 72 U/L 40-136 Serum or plasma aspartate aminotransfera se measurement (enzymatic activity/volume) 26 U/L 5-34 Serum or plasma alanine aminotransferase measurement (enzymatic activity/volume) 24 U/L 0-55 Serum or plasma protein measurement (mass/volume) 7.6 g/dL 6.4-8.2 Serum or plasma albumin measurement (mass/volume) 4.0 g/dL 3.2-4.5 Serum or plasma amylase measurement (enz ymatic activity/volume) - 09/02/17 21:45 Serum or plasma amylase measurement (enzymatic activit y/volume) 53 U/L 25-125 Lipase - 09/02/17 21:45 Lipase 39 U/L 8-78 Complete blood count (CBC) with automate d white blood cell (WBC) differential - 09/03/17 05:41 Blood leukocytes automated count (number/volume) 9.5 10*3/uL 4.3-11.0 Blood erythrocytes automated count (number/volume) 3.85 10*6/uL 4.35-5.85 Venous blood hemoglobin measurement (mass/volume) 11.0 g/dL 11.5-16.0 Blood hematocrit (volume fraction) 34 % 35-52 Automated erythrocyte mean corpuscular volume 88 [ foz_us] 80-99 Automated erythrocyte mean corpuscular h emoglobin (mass per erythrocyte) 29 pg 25-34 Automated erythrocyte mean corpuscular h emoglobin concentration measurement (mass/volume) 33 g/dL 32-36 Automated erythrocyte distribution width ratio 13. 2 % 10.0- 14.5 Automated blood platelet count (count/volume) 295 10*3/uL 130-400 Automated blood platelet mean volume measurement 9.3 [foz_us] 7.4-10.4 Automated blood neutrophils/100 leukocytes 60 % 42-75 Automated blood lymphocytes/100 leukocytes 29 % 12-44 Blood monocytes/100 leukocytes 5 % 0-12 Automated blood eosinophils/100 leukocytes 6 % 0-10 Automated blood basophils/100 leukocytes 1 % 0-10 Blood neutrophils automated count (number/volume) 5.7 10*3 1.8-7.8 Blood lymphocytes automated count (number/volume) 2.7 10*3 1.0-4.0 Blood monocytes automated count (number/volume) 0. 5 10*3 0.0-1.0 Automated eosinophil count 0.6 10*3/uL 0 .0-0.3 Automated blood basophil count (count/volume) 0.1 10*3/uL 0.0-0.1 Comprehensive metabolic panel - 09/03/17 05:41 Serum or plasma sodium measurement (moles/volume) 140 mmol/L 135-145 Serum or plasma potassium measurement (moles/volume) 3.8 mmol/L 3.6-5.0 Serum or plasma chloride measurement (moles/volume) 109 mmol/L 98-107 Carbon dioxide 23 mmol/L 21-32 Serum or plasma anion gap determination (moles/volume) 8 mmol/L 5-14 Serum or plasma urea nitrogen measurement (mass/volume ) 14 mg/dL 7-18 Serum or plasma creatinine measurement (mass/volume) 0.88 mg/dL 0.60-1.30 Serum or plasma urea nitrogen/creatinine mass ratio 16 NRG Serum or plasma creatinine measurement w ith calculation of estimated glomerular filtration rate > NRG Serum or plasma glucose measurement (mass/volume) 99 mg/dL 70-105 Serum or plasma calcium measurement (mass/volume) 8.7 mg/dL 8.5-10.1 Serum or plasma total bilirubin measurement (mass/volu me) 0.2 mg/dL 0.1-1.0 Serum or plasma alkaline phosphatase allyson surement (enzymatic activity/volume) 63 U/L 40-136 Serum or plasma aspartate aminotransfera se measurement (enzymatic activity/volume) 22 U/L 5-34 Serum or plasma alanine aminotransferase measurement (enzymatic activity/volume) 18 U/L 0-55 Serum or plasma protein measurement (mass/volume) 6.5 g/dL 6.4-8.2 Serum or plasma albumin measurement (mass/volume) 3.5 g/dL 3.2-4.5 Complete urinalysis with reflex to cultu re - 11/11/17 09:50 Urine color determination YELLOW NRG Urine clarity determination SLIGHTLY CLOUDY NRG Urine pH measurement by test strip 6 5-9 Specific gravity of urine by test strip 1.015 1.016-1.022 Urine protein assay by test strip, semi-quantitative 1+ NEGATIVE Urine glucose detection by automated test strip NE GATIVE NEGATIVE Erythrocytes detection in urine sediment by light micr oscopy NEGATIVE NEGATIVE Urine ketones detection by automated test strip NE GATIVE NEGATIVE Urine nitrite detection by test strip NEGATIVE NEGATIVE Urine total bilirubin detection by test strip NEGA TIVE NEGATIVE Urine urobilinogen measurement by automated test strip (mass/volume) NORMAL NORMAL Urine leukocyte esterase detection by dipstick NEG ATIVE NEGATIVE Automated urine sediment erythrocyte cou nt by microscopy (number/high power field) NONE NRG Automated urine sediment leukocyte count by microscopy (number/high power field) [HPF] NRG Bacteria detection in urine sediment by light microsco py LARGE NRG Squamous epithelial cells detection in u rine sediment by light microscopy >50 NRG Crystals detection in urine sediment by light microsco py NONE NRG Casts detection in urine sediment by light microscopy NONE NRG Mucus detection in urine sediment by light microscopy NEGATIVE NRG Complete urinalysis with reflex to culture NO NRG Urine beta human chorionic gonadotropin (hCG) measurement - 11/11/17 09:50 Urine beta human chorionic gonadotropin (hCG) measurem ent NEGATIVE NEGATIVE Complete blood count (CBC) with automate d white blood cell (WBC) differential - 11/11/17 10:10 Blood leukocytes automated count (number/volume) 9.8 10*3/uL 4.3-11.0 Blood erythrocytes automated count (number/volume) 4.35 10*6/uL 4.35-5.85 Venous blood hemoglobin measurement (mass/volume) 12.2 g/dL 11.5-16.0 Blood hematocrit (volume fraction) 37 % 35-52 Automated erythrocyte mean corpuscular volume 86 [ foz_us] 80-99 Automated erythrocyte mean corpuscular h emoglobin (mass per erythrocyte) 28 pg 25-34 Automated erythrocyte mean corpuscular h emoglobin concentration measurement (mass/volume) 33 g/dL 32-36 Automated erythrocyte distribution width ratio 14. 0 % 10.0- 14.5 Automated blood platelet count (count/volume) 273 10*3/uL 130-400 Automated blood platelet mean volume measurement 9.2 [foz_us] 7.4-10.4 Automated blood neutrophils/100 leukocytes 65 % 42-75 Automated blood lymphocytes/100 leukocytes 27 % 12-44 Blood monocytes/100 leukocytes 5 % 0-12 Automated blood eosinophils/100 leukocytes 3 % 0-10 Automated blood basophils/100 leukocytes 0 % 0-10 Blood neutrophils automated count (number/volume) 6.3 10*3 1.8-7.8 Blood lymphocytes automated count (number/volume) 2.7 10*3 1.0-4.0 Blood monocytes automated count (number/volume) 0. 5 10*3 0.0-1.0 Automated eosinophil count 0.3 10*3/uL 0 .0-0.3 Automated blood basophil count (count/volume) 0.0 10*3/uL 0.0-0.1 Comprehensive metabolic panel - 11/11/17 10:10 Serum or plasma sodium measurement (moles/volume) 140 mmol/L 135-145 Serum or plasma potassium measurement (moles/volume) 3.9 mmol/L 3.6-5.0 Serum or plasma chloride measurement (moles/volume) 107 mmol/L 98-107 Carbon dioxide 22 mmol/L 21-32 Serum or plasma anion gap determination (moles/volume) 11 mmol/L 5-14 Serum or plasma urea nitrogen measurement (mass/volume ) 12 mg/dL 7-18 Serum or plasma creatinine measurement (mass/volume) 0.84 mg/dL 0.60-1.30 Serum or plasma urea nitrogen/creatinine mass ratio 14 NRG Serum or plasma creatinine measurement w ith calculation of estimated glomerular filtration rate > NRG Serum or plasma glucose measurement (mass/volume) 88 mg/dL 70-105 Serum or plasma calcium measurement (mass/volume) 9.0 mg/dL 8.5-10.1 Serum or plasma total bilirubin measurement (mass/volu me) 0.4 mg/dL 0.1-1.0 Serum or plasma alkaline phosphatase allyson surement (enzymatic activity/volume) 52 U/L 40-136 Serum or plasma aspartate aminotransfera se measurement (enzymatic activity/volume) 30 U/L 5-34 Serum or plasma alanine aminotransferase measurement (enzymatic activity/volume) 20 U/L 0-55 Serum or plasma protein measurement (mass/volume) 7.0 g/dL 6.4-8.2 Serum or plasma albumin measurement (mass/volume) 3.7 g/dL 3.2-4.5 Magnesium - 11/11/17 10:10 Magnesium 2.2 mg/dL 1.8-2.4 Bacteria identification in isolate by an aerobe culture - 11/12/17 12:58 Bacteria identification in isolate by anaerobe culture [facility] Gram stain microscopy - 11/12/17 12:58 GRAM STAIN RESULT NO BACTERIA OBSERVED [facility]NER Bacteria identification in wound by cult ure - 11/12/17 12:58 Bacteria identification in wound by culture [facility] LIPID PANEL - 11/26/17 10:52 CHOLESTEROL, TOTAL 217 mg/dL <200 HDL CHOLESTEROL 48 mg/dL >50 TRIGLYCERIDES 369 mg/dL <150 LDL-CHOLESTEROL 116 mg/dL (calc) NRG CHOL/HDLC RATIO 4.5 (calc) <5.0 NON HDL CHOLESTEROL 169 mg/dL (calc) <13 0 Complete blood count (CBC) with automate d white blood cell (WBC) differential - 12/13/17 17:12 Blood leukocytes automated count (number/volume) 9.8 10*3/uL 4.3-11.0 Blood erythrocytes automated count (number/volume) 4.38 10*6/uL 4.35-5.85 Venous blood hemoglobin measurement (mass/volume) 12.4 g/dL 11.5-16.0 Blood hematocrit (volume fraction) 37 % 35-52 Automated erythrocyte mean corpuscular volume 85 [ foz_us] 80-99 Automated erythrocyte mean corpuscular h emoglobin (mass per erythrocyte) 28 pg 25-34 Automated erythrocyte mean corpuscular h emoglobin concentration measurement (mass/volume) 33 g/dL 32-36 Automated erythrocyte distribution width ratio 14. 5 % 10.0- 14.5 Automated blood platelet count (count/volume) 315 10*3/uL 130-400 Automated blood platelet mean volume measurement 10.3 [foz_us] 7.4-10.4 Automated blood neutrophils/100 leukocytes 63 % 42-75 Automated blood lymphocytes/100 leukocytes 30 % 12-44 Blood monocytes/100 leukocytes 4 % 0-12 Automated blood eosinophils/100 leukocytes 3 % 0-10 Automated blood basophils/100 leukocytes 0 % 0-10 Blood neutrophils automated count (number/volume) 6.2 10*3 1.8-7.8 Blood lymphocytes automated count (number/volume) 2.9 10*3 1.0-4.0 Blood monocytes automated count (number/volume) 0. 4 10*3 0.0-1.0 Automated eosinophil count 0.3 10*3/uL 0 .0-0.3 Automated blood basophil count (count/volume) 0.0 10*3/uL 0.0-0.1 Comprehensive metabolic panel - 12/13/17 17:12 Serum or plasma sodium measurement (moles/volume) 139 mmol/L 135-145 Serum or plasma potassium measurement (moles/volume) 4.4 mmol/L 3.6-5.0 Serum or plasma chloride measurement (moles/volume) 108 mmol/L 98-107 Carbon dioxide 19 mmol/L 21-32 Serum or plasma anion gap determination (moles/volume) 12 mmol/L 5-14 Serum or plasma urea nitrogen measurement (mass/volume ) 12 mg/dL 7-18 Serum or plasma creatinine measurement (mass/volume) 0.84 mg/dL 0.60-1.30 Serum or plasma urea nitrogen/creatinine mass ratio 14 NRG Serum or plasma creatinine measurement w ith calculation of estimated glomerular filtration rate > NRG Serum or plasma glucose measurement (mass/volume) 98 mg/dL 70-105 Serum or plasma calcium measurement (mass/volume) 9.3 mg/dL 8.5-10.1 Serum or plasma total bilirubin measurement (mass/volu me) 0.3 mg/dL 0.1-1.0 Serum or plasma alkaline phosphatase allyson surement (enzymatic activity/volume) 53 U/L 40-136 Serum or plasma aspartate aminotransfera se measurement (enzymatic activity/volume) 51 U/L 5-34 Serum or plasma alanine aminotransferase measurement (enzymatic activity/volume) 20 U/L 0-55 Serum or plasma protein measurement (mass/volume) 8.0 g/dL 6.4-8.2 Serum or plasma albumin measurement (mass/volume) 3.8 g/dL 3.2-4.5 Complete urinalysis with reflex to cultu re - 12/13/17 17:47 Urine color determination YELLOW NRG Urine clarity determination SLIGHTLY CLOUDY NRG Urine pH measurement by test strip 6 5-9 Specific gravity of urine by test strip 1.020 1.016-1.022 Urine protein assay by test strip, semi-quantitative 1+ NEGATIVE Urine glucose detection by automated test strip NE GATIVE NEGATIVE Erythrocytes detection in urine sediment by light micr oscopy NEGATIVE NEGATIVE Urine ketones detection by automated test strip NE GATIVE NEGATIVE Urine nitrite detection by test strip NEGATIVE NEGATIVE Urine total bilirubin detection by test strip NEGA TIVE NEGATIVE Urine urobilinogen measurement by automated test strip (mass/volume) NORMAL NORMAL Urine leukocyte esterase detection by dipstick NEG ATIVE NEGATIVE Automated urine sediment erythrocyte cou nt by microscopy (number/high power field) NONE NRG Automated urine sediment leukocyte count by microscopy (number/high power field) RARE NRG Bacteria detection in urine sediment by light microsco py NEGATIVE NRG Squamous epithelial cells detection in u rine sediment by light microscopy 5-10 NRG Crystals detection in urine sediment by light microsco py NONE NRG Casts detection in urine sediment by light microscopy NONE NRG Mucus detection in urine sediment by light microscopy NEGATIVE NRG Complete urinalysis with reflex to culture NO NRG [facility] - 12/17/17 13:20 GLUCOSE 76 mg/dL 65-99 UREA NITROGEN (BUN) 13 mg/dL 7-25 CREATININE 0.92 mg/dL 0.50-1.10 eGFR NON-AFR. [place] 82 mL/min/1.73m2 > OR = 60 eGFR 95 mL/min/1.73m2 > OR = 60 BUN/CREATININE RATIO NOT APPLICABLE (calc) 6-22 SODIUM 138 mmol/L 135-146 POTASSIUM 4.2 mmol/L 3.5-5.3 CHLORIDE 102 mmol/L 98-110 CARBON DIOXIDE 28 mmol/L 20-31 CALCIUM 9.3 mg/dL 8.6-10.2 CBC - 12/17/17 13:20 WHITE BLOOD CELL COUNT 8.7 Thousand/uL 3 .8-10.8 RED BLOOD CELL COUNT 4.43 Million/uL 3.8 0-5.10 HEMOGLOBIN 12.4 g/dL 11.7-15.5 HEMATOCRIT 37.6 % 35.0-45.0 MCV 84.9 fL 80.0-100.0 MCH 28.0 pg 27.0-33.0 MCHC 33.0 g/dL 32.0-36.0 RDW 14.0 % 11.0-15.0 PLATELET COUNT 276 Thousand/uL 140-400 MPV 9.4 fL 7.5-12.5 ABSOLUTE NEUTROPHILS 5498 cells/uL 1500- 7800 ABSOLUTE LYMPHOCYTES 2514 cells/uL 850-3 900 ABSOLUTE MONOCYTES 392 cells/uL 200-950 ABSOLUTE EOSINOPHILS 270 cells/uL 15-500 ABSOLUTE BASOPHILS 26 cells/uL 0-200 NEUTROPHILS 63.2 % NRG LYMPHOCYTES 28.9 % NRG MONOCYTES 4.5 % NRG EOSINOPHILS 3.1 % NRG BASOPHILS 0.3 % NRG Complete blood count (CBC) with automate d white blood cell (WBC) differential - 12/18/17 02:08 Blood leukocytes automated count (number/volume) 8.7 10*3/uL 4.3-11.0 Blood erythrocytes automated count (number/volume) 4.25 10*6/uL 4.35-5.85 Venous blood hemoglobin measurement (mass/volume) 12.2 g/dL 11.5-16.0 Blood hematocrit (volume fraction) 36 % 35-52 Automated erythrocyte mean corpuscular volume 85 [ foz_us] 80-99 Automated erythrocyte mean corpuscular h emoglobin (mass per erythrocyte) 29 pg 25-34 Automated erythrocyte mean corpuscular h emoglobin concentration measurement (mass/volume) 34 g/dL 32-36 Automated erythrocyte distribution width ratio 14. 2 % 10.0- 14.5 Automated blood platelet count (count/volume) 278 10*3/uL 130-400 Automated blood platelet mean volume measurement 9.7 [foz_us] 7.4-10.4 Automated blood neutrophils/100 leukocytes 54 % 42-75 Automated blood lymphocytes/100 leukocytes 37 % 12-44 Blood monocytes/100 leukocytes 6 % 0-12 Automated blood eosinophils/100 leukocytes 3 % 0-10 Automated blood basophils/100 leukocytes 0 % 0-10 Blood neutrophils automated count (number/volume) 4.7 10*3 1.8-7.8 Blood lymphocytes automated count (number/volume) 3.2 10*3 1.0-4.0 Blood monocytes automated count (number/volume) 0. 5 10*3 0.0-1.0 Automated eosinophil count 0.3 10*3/uL 0 .0-0.3 Automated blood basophil count (count/volume) 0.0 10*3/uL 0.0-0.1 Comprehensive metabolic panel - 12/18/17 02:08 Serum or plasma sodium measurement (moles/volume) 139 mmol/L 135-145 Serum or plasma potassium measurement (moles/volume) 4.0 mmol/L 3.6-5.0 Serum or plasma chloride measurement (moles/volume) 106 mmol/L 98-107 Carbon dioxide 20 mmol/L 21-32 Serum or plasma anion gap determination (moles/volume) 13 mmol/L 5-14 Serum or plasma urea nitrogen measurement (mass/volume ) 13 mg/dL 7-18 Serum or plasma creatinine measurement (mass/volume) 0.89 mg/dL 0.60-1.30 Serum or plasma urea nitrogen/creatinine mass ratio 15 NRG Serum or plasma creatinine measurement w ith calculation of estimated glomerular filtration rate > NRG Serum or plasma glucose measurement (mass/volume) 113 mg/dL 70-105 Serum or plasma calcium measurement (mass/volume) 9.9 mg/dL 8.5-10.1 Serum or plasma total bilirubin measurement (mass/volu me) 0.2 mg/dL 0.1-1.0 Serum or plasma alkaline phosphatase allyson surement (enzymatic activity/volume) 52 U/L 40-136 Serum or plasma aspartate aminotransfera se measurement (enzymatic activity/volume) 27 U/L 5-34 Serum or plasma alanine aminotransferase measurement (enzymatic activity/volume) 17 U/L 0-55 Serum or plasma protein measurement (mass/volume) 7.4 g/dL 6.4-8.2 Serum or plasma albumin measurement (mass/volume) 4.0 g/dL 3.2-4.5 Serum or plasma amylase measurement (enz ymatic activity/volume) - 12/18/17 02:08 Serum or plasma amylase measurement (enzymatic activit y/volume) 66 U/L 25-125 Lipase - 12/18/17 02:08 Lipase 66 U/L 8-78 Complete urinalysis with reflex to cultu re - 12/18/17 03:17 Urine color determination YELLOW NRG Urine clarity determination SLIGHTLY CLOUDY NRG Urine pH measurement by test strip 6 5-9 Specific gravity of urine by test strip 1.015 1.016-1.022 Urine protein assay by test strip, semi-quantitative NEGATIVE NEGATIVE Urine glucose detection by automated test strip NE GATIVE NEGATIVE Erythrocytes detection in urine sediment by light micr oscopy NEGATIVE NEGATIVE Urine ketones detection by automated test strip NE GATIVE NEGATIVE Urine nitrite detection by test strip NEGATIVE NEGATIVE Urine total bilirubin detection by test strip NEGA TIVE NEGATIVE Urine urobilinogen measurement by automated test strip (mass/volume) NORMAL NORMAL Urine leukocyte esterase detection by dipstick 1+ NEGATIVE Automated urine sediment erythrocyte cou nt by microscopy (number/high power field) NONE NRG Automated urine sediment leukocyte count by microscopy (number/high power field) RARE NRG Bacteria detection in urine sediment by light microsco py TRACE NRG Squamous epithelial cells detection in u rine sediment by light microscopy 10-25 NRG Crystals detection in urine sediment by light microsco py NONE NRG Casts detection in urine sediment by light microscopy NONE NRG Mucus detection in urine sediment by light microscopy NEGATIVE NRG Complete urinalysis with reflex to culture NO NRG Blood lactic acid measurement (moles/vol ume) - 12/18/17 03:42 Blood lactic acid measurement (moles/volume) 1.07 mmol/L 0.50-2.00 PT panel in platelet poor plasma by coag ulation assay - 12/18/17 03:42 Prothrombin time (PT) in platelet poor plasma by coagu lation assay 13.3 s 12.2-14.7 INR in platelet poor plasma or blood by coagulation as say 1.0 0.8-1.4 Activated partial thromboplastin time (a PTT) in platelet poor plasma bycoagulation assay - 12/18/17 03:42 Activated partial thromboplastin time (a PTT) in platelet poor plasma bycoagulation assay 27 s 24-35 Bacterial blood culture - 12/18/17 03:42 FREE TEXT EXTERNAL SENSITIVITY REPORTED AT 0756, NRG QUANTITY OF GROWTH . NRG Bacterial blood culture SEE COMMEN NR Bacterial susceptibility panel - 8 03:42 Gentamicin susceptibility test by minimum inhibitory c oncentration S NRG Erythromycin susceptibility test by minimum inhibitory concentration 2 NRG Vancomycin susceptibility test by minimum inhibitory c oncentration 2 NRG Ampicillin susceptibility test by minimum inhibitory c oncentration <= NRG Linezolid susceptibility test by minimum inhibitory co ncentration 2 NRG Bacterial blood culture - 12/18/17 04:15 Bacterial blood culture NG NRG Blood lactic acid measurement (moles/vol ume) - 12/27/17 10:45 Blood lactic acid measurement (moles/volume) 1.32 mmol/L 0.50-2.00 Complete blood count (CBC) with automate d white blood cell (WBC) differential - 12/27/17 10:50 Blood leukocytes automated count (number/volume) 7.3 10*3/uL 4.3-11.0 Blood erythrocytes automated count (number/volume) 3.81 10*6/uL 4.35-5.85 Venous blood hemoglobin measurement (mass/volume) 10.7 g/dL 11.5-16.0 Blood hematocrit (volume fraction) 33 % 35-52 Automated erythrocyte mean corpuscular volume 86 [ foz_us] 80-99 Automated erythrocyte mean corpuscular h emoglobin (mass per erythrocyte) 28 pg 25-34 Automated erythrocyte mean corpuscular h emoglobin concentration measurement (mass/volume) 33 g/dL 32-36 Automated erythrocyte distribution width ratio 14. 4 % 10.0- 14.5 Automated blood platelet count (count/volume) 260 10*3/uL 130-400 Automated blood platelet mean volume measurement 9.6 [foz_us] 7.4-10.4 Automated blood neutrophils/100 leukocytes 64 % 42-75 Automated blood lymphocytes/100 leukocytes 27 % 12-44 Blood monocytes/100 leukocytes 5 % 0-12 Automated blood eosinophils/100 leukocytes 3 % 0-10 Automated blood basophils/100 leukocytes 0 % 0-10 Blood neutrophils automated count (number/volume) 4.7 10*3 1.8-7.8 Blood lymphocytes automated count (number/volume) 2.0 10*3 1.0-4.0 Blood monocytes automated count (number/volume) 0. 4 10*3 0.0-1.0 Automated eosinophil count 0.3 10*3/uL 0 .0-0.3 Automated blood basophil count (count/volume) 0.0 10*3/uL 0.0-0.1 Comprehensive metabolic panel - 12/27/17 10:50 Serum or plasma sodium measurement (moles/volume) 141 mmol/L 135-145 Serum or plasma potassium measurement (moles/volume) 4.2 mmol/L 3.6-5.0 Serum or plasma chloride measurement (moles/volume) 108 mmol/L 98-107 Carbon dioxide 24 mmol/L 21-32 Serum or plasma anion gap determination (moles/volume) 9 mmol/L 5-14 Serum or plasma urea nitrogen measurement (mass/volume ) 12 mg/dL 7-18 Serum or plasma creatinine measurement (mass/volume) 0.84 mg/dL 0.60-1.30 Serum or plasma urea nitrogen/creatinine mass ratio 14 NRG Serum or plasma creatinine measurement w ith calculation of estimated glomerular filtration rate > NRG Serum or plasma glucose measurement (mass/volume) 83 mg/dL 70-105 Serum or plasma calcium measurement (mass/volume) 9.1 mg/dL 8.5-10.1 Serum or plasma total bilirubin measurement (mass/volu me) 0.3 mg/dL 0.1-1.0 Serum or plasma alkaline phosphatase allyson surement (enzymatic activity/volume) 49 U/L 40-136 Serum or plasma aspartate aminotransfera se measurement (enzymatic activity/volume) 29 U/L 5-34 Serum or plasma alanine aminotransferase measurement (enzymatic activity/volume) 14 U/L 0-55 Serum or plasma protein measurement (mass/volume) 6.5 g/dL 6.4-8.2 Serum or plasma albumin measurement (mass/volume) 3.5 g/dL 3.2-4.5 Lipase - 12/27/17 10:50 Lipase 24 U/L 8-78 Erythrocyte sedimentation rate by aaron gren method - 12/27/17 10:50 Erythrocyte sedimentation rate by westergren method 57 mm 0- 20 Bacterial blood culture - 12/27/17 10:50 Bacterial blood culture NG NRG Complete urinalysis with reflex to cultu re - 12/27/17 13:45 Urine color determination YELLOW NRG Urine clarity determination CLEAR NR G Urine pH measurement by test strip 6 5-9 Specific gravity of urine by test strip 1.010 1.016-1.022 Urine protein assay by test strip, semi-quantitative NEGATIVE NEGATIVE Urine glucose detection by automated test strip NE GATIVE NEGATIVE Erythrocytes detection in urine sediment by light micr oscopy NEGATIVE NEGATIVE Urine ketones detection by automated test strip NE GATIVE NEGATIVE Urine nitrite detection by test strip NEGATIVE NEGATIVE Urine total bilirubin detection by test strip NEGA TIVE NEGATIVE Urine urobilinogen measurement by automated test strip (mass/volume) NORMAL NORMAL Urine leukocyte esterase detection by dipstick NEG ATIVE NEGATIVE Automated urine sediment erythrocyte cou nt by microscopy (number/high power field) NONE NRG Automated urine sediment leukocyte count by microscopy (number/high power field) RARE NRG Bacteria detection in urine sediment by light microsco py TRACE NRG Squamous epithelial cells detection in u rine sediment by light microscopy 0-2 NRG Crystals detection in urine sediment by light microsco py NONE NRG Casts detection in urine sediment by light microscopy NONE NRG Mucus detection in urine sediment by light microscopy NEGATIVE NRG Complete urinalysis with reflex to culture NO NRG Bacterial blood culture - 12/27/17 13:59 Bacterial blood culture NG NRG Complete blood count (CBC) with automate d white blood cell (WBC) differential - 12/28/17 14:52 Blood leukocytes automated count (number/volume) 7.5 10*3/uL 4.3-11.0 Blood erythrocytes automated count (number/volume) 3.69 10*6/uL 4.35-5.85 Venous blood hemoglobin measurement (mass/volume) 10.5 g/dL 11.5-16.0 Blood hematocrit (volume fraction) 32 % 35-52 Automated erythrocyte mean corpuscular volume 86 [ foz_us] 80-99 Automated erythrocyte mean corpuscular h emoglobin (mass per erythrocyte) 29 pg 25-34 Automated erythrocyte mean corpuscular h emoglobin concentration measurement (mass/volume) 33 g/dL 32-36 Automated erythrocyte distribution width ratio 14. 2 % 10.0- 14.5 Automated blood platelet count (count/volume) 254 10*3/uL 130-400 Automated blood platelet mean volume measurement 10.4 [foz_us] 7.4-10.4 Automated blood neutrophils/100 leukocytes 63 % 42-75 Automated blood lymphocytes/100 leukocytes 27 % 12-44 Blood monocytes/100 leukocytes 6 % 0-12 Automated blood eosinophils/100 leukocytes 3 % 0-10 Automated blood basophils/100 leukocytes 0 % 0-10 Blood neutrophils automated count (number/volume) 4.7 10*3 1.8-7.8 Blood lymphocytes automated count (number/volume) 2.0 10*3 1.0-4.0 Blood monocytes automated count (number/volume) 0. 5 10*3 0.0-1.0 Automated eosinophil count 0.3 10*3/uL 0 .0-0.3 Automated blood basophil count (count/volume) 0.0 10*3/uL 0.0-0.1 Comprehensive metabolic panel - 12/28/17 14:52 Serum or plasma sodium measurement (moles/volume) 140 mmol/L 135-145 Serum or plasma potassium measurement (moles/volume) 3.6 mmol/L 3.6-5.0 Serum or plasma chloride measurement (moles/volume) 106 mmol/L 98-107 Carbon dioxide 24 mmol/L 21-32 Serum or plasma anion gap determination (moles/volume) 10 mmol/L 5-14 Serum or plasma urea nitrogen measurement (mass/volume ) 10 mg/dL 7-18 Serum or plasma creatinine measurement (mass/volume) 0.95 mg/dL 0.60-1.30 Serum or plasma urea nitrogen/creatinine mass ratio 11 NRG Serum or plasma creatinine measurement w ith calculation of estimated glomerular filtration rate > NRG Serum or plasma glucose measurement (mass/volume) 109 mg/dL 70-105 Serum or plasma calcium measurement (mass/volume) 9.1 mg/dL 8.5-10.1 Serum or plasma total bilirubin measurement (mass/volu me) 0.2 mg/dL 0.1-1.0 Serum or plasma alkaline phosphatase allyson surement (enzymatic activity/volume) 50 U/L 40-136 Serum or plasma aspartate aminotransfera se measurement (enzymatic activity/volume) 28 U/L 5-34 Serum or plasma alanine aminotransferase measurement (enzymatic activity/volume) 13 U/L 0-55 Serum or plasma protein measurement (mass/volume) 6.4 g/dL 6.4-8.2 Serum or plasma albumin measurement (mass/volume) 3.4 g/dL 3.2-4.5 CULTURE, THROAT - 01/06/18 14:33 CULTURE, THROAT SEE NOTE NRG Methicillin resistant Staphylococcus aur eus (MRSA) screening culture - 02/13/18 11:15 Methicillin resistant Staphylococcus aureus (MRSA) scr eening culture NEG NRG Complete blood count (CBC) with automate d white blood cell (WBC) differential - 02/24/18 13:15 Blood leukocytes automated count (number/volume) 14.5 10*3/uL 4.3-11.0 Blood erythrocytes automated count (number/volume) 4.39 10*6/uL 4.35-5.85 Venous blood hemoglobin measurement (mass/volume) 12.2 g/dL 11.5-16.0 Blood hematocrit (volume fraction) 37 % 35-52 Automated erythrocyte mean corpuscular volume 85 [ foz_us] 80-99 Automated erythrocyte mean corpuscular h emoglobin (mass per erythrocyte) 28 pg 25-34 Automated erythrocyte mean corpuscular h emoglobin concentration measurement (mass/volume) 33 g/dL 32-36 Automated erythrocyte distribution width ratio 13. 7 % 10.0- 14.5 Automated blood platelet count (count/volume) 305 10*3/uL 130-400 Automated blood platelet mean volume measurement 9.3 [foz_us] 7.4-10.4 Automated blood neutrophils/100 leukocytes 77 % 42-75 Automated blood lymphocytes/100 leukocytes 16 % 12-44 Blood monocytes/100 leukocytes 3 % 0-12 Automated blood eosinophils/100 leukocytes 3 % 0-10 Automated blood basophils/100 leukocytes 0 % 0-10 Blood neutrophils automated count (number/volume) 11.2 10*3 1.8-7.8 Blood lymphocytes automated count (number/volume) 2.3 10*3 1.0-4.0 Blood monocytes automated count (number/volume) 0. 5 10*3 0.0-1.0 Automated eosinophil count 0.5 10*3/uL 0 .0-0.3 Automated blood basophil count (count/volume) 0.0 10*3/uL 0.0-0.1 Blood manual differential performed dete ction - 02/24/18 13:15 Blood monocytes/100 leukocytes 3 % NRG Manual blood segmented neutrophils/100 leukocytes 77 % NRG Manual blood lymphocytes/100 leukocytes 17 % NRG Manual eosinophils/100 leukocytes in nose 3 % NRG Blood erythrocyte morphology finding identification NORMAL NRG Complete urinalysis with reflex to cultu re - 02/24/18 15:35 Urine color determination YELLOW NRG Urine clarity determination CLEAR NR G Urine pH measurement by test strip 7 5-9 Specific gravity of urine by test strip 1.005 1.016-1.022 Urine protein assay by test strip, semi-quantitative NEGATIVE NEGATIVE Urine glucose detection by automated test strip NE GATIVE NEGATIVE Erythrocytes detection in urine sediment by light micr oscopy NEGATIVE NEGATIVE Urine ketones detection by automated test strip NE GATIVE NEGATIVE Urine nitrite detection by test strip NEGATIVE NEGATIVE Urine total bilirubin detection by test strip NEGA TIVE NEGATIVE Urine urobilinogen measurement by automated test strip (mass/volume) NORMAL NORMAL Urine leukocyte esterase detection by dipstick NEG ATIVE NEGATIVE Automated urine sediment erythrocyte cou nt by microscopy (number/high power field) NONE NRG Automated urine sediment leukocyte count by microscopy (number/high power field) NONE NRG Bacteria detection in urine sediment by light microsco py NONE NRG Squamous epithelial cells detection in u rine sediment by light microscopy 2-5 NRG Crystals detection in urine sediment by light microsco py NONE NRG Casts detection in urine sediment by light microscopy NONE NRG Mucus detection in urine sediment by light microscopy NEGATIVE NRG Complete urinalysis with reflex to culture NO NRG Complete blood count (CBC) with automate d white blood cell (WBC) differential - 03/01/18 23:30 Blood leukocytes automated count (number/volume) 11.5 10*3/uL 4.3-11.0 Blood erythrocytes automated count (number/volume) 4.15 10*6/uL 4.35-5.85 Venous blood hemoglobin measurement (mass/volume) 11.7 g/dL 11.5-16.0 Blood hematocrit (volume fraction) 36 % 35-52 Automated erythrocyte mean corpuscular volume 86 [ foz_us] 80-99 Automated erythrocyte mean corpuscular h emoglobin (mass per erythrocyte) 28 pg 25-34 Automated erythrocyte mean corpuscular h emoglobin concentration measurement (mass/volume) 33 g/dL 32-36 Automated erythrocyte distribution width ratio 13. 8 % 10.0- 14.5 Automated blood platelet count (count/volume) 346 10*3/uL 130-400 Automated blood platelet mean volume measurement 9.0 [foz_us] 7.4-10.4 Automated blood neutrophils/100 leukocytes 64 % 42-75 Automated blood lymphocytes/100 leukocytes 26 % 12-44 Blood monocytes/100 leukocytes 5 % 0-12 Automated blood eosinophils/100 leukocytes 4 % 0-10 Automated blood basophils/100 leukocytes 0 % 0-10 Blood neutrophils automated count (number/volume) 7.4 10*3 1.8-7.8 Blood lymphocytes automated count (number/volume) 3.0 10*3 1.0-4.0 Blood monocytes automated count (number/volume) 0. 6 10*3 0.0-1.0 Automated eosinophil count 0.5 10*3/uL 0 .0-0.3 Automated blood basophil count (count/volume) 0.0 10*3/uL 0.0-0.1 Comprehensive metabolic panel - 03/01/18 23:30 Serum or plasma sodium measurement (moles/volume) 139 mmol/L 135-145 Serum or plasma potassium measurement (moles/volume) 3.8 mmol/L 3.6-5.0 Serum or plasma chloride measurement (moles/volume) 104 mmol/L 98-107 Carbon dioxide 23 mmol/L 21-32 Serum or plasma anion gap determination (moles/volume) 12 mmol/L 5-14 Serum or plasma urea nitrogen measurement (mass/volume ) 14 mg/dL 7-18 Serum or plasma creatinine measurement (mass/volume) 1.02 mg/dL 0.60-1.30 Serum or plasma urea nitrogen/creatinine mass ratio 14 NRG Serum or plasma creatinine measurement w ith calculation of estimated glomerular filtration rate > NRG Serum or plasma glucose measurement (mass/volume) 95 mg/dL 70-105 Serum or plasma calcium measurement (mass/volume) 9.7 mg/dL 8.5-10.1 Serum or plasma total bilirubin measurement (mass/volu me) 0.3 mg/dL 0.1-1.0 Serum or plasma alkaline phosphatase allyson surement (enzymatic activity/volume) 66 U/L 40-136 Serum or plasma aspartate aminotransfera se measurement (enzymatic activity/volume) 32 U/L 5-34 Serum or plasma alanine aminotransferase measurement (enzymatic activity/volume) 24 U/L 0-55 Serum or plasma protein measurement (mass/volume) 7.5 g/dL 6.4-8.2 Serum or plasma albumin measurement (mass/volume) 4.0 g/dL 3.2-4.5 CALCIUM CORRECTED 9.7 mg/dL 8.5-10.1 CBC - 04/07/18 08:21 WHITE BLOOD CELL COUNT 8.9 Thousand/uL 3 .8-10.8 RED BLOOD CELL COUNT 4.34 Million/uL 3.8 0-5.10 HEMOGLOBIN 12.2 g/dL 11.7-15.5 HEMATOCRIT 36.4 % 35.0-45.0 MCV 83.9 fL 80.0-100.0 MCH 28.1 pg 27.0-33.0 MCHC 33.5 g/dL 32.0-36.0 RDW 13.2 % 11.0-15.0 PLATELET COUNT 300 Thousand/uL 140-400 MPV 9.3 fL 7.5-12.5 ABSOLUTE NEUTROPHILS 5732 cells/uL 1500- 7800 ABSOLUTE LYMPHOCYTES 2608 cells/uL 850-3 900 ABSOLUTE MONOCYTES 329 cells/uL 200-950 ABSOLUTE EOSINOPHILS 196 cells/uL 15-500 ABSOLUTE BASOPHILS 36 cells/uL 0-200 NEUTROPHILS 64.4 % NRG LYMPHOCYTES 29.3 % NRG MONOCYTES 3.7 % NRG EOSINOPHILS 2.2 % NRG BASOPHILS 0.4 % NRG Complete blood count (CBC) with automate d white blood cell (WBC) differential - 04/29/18 10:58 Blood leukocytes automated count (number/volume) 7.1 10*3/uL 4.3-11.0 Blood erythrocytes automated count (number/volume) 4.58 10*6/uL 4.35-5.85 Venous blood hemoglobin measurement (mass/volume) 12.2 g/dL 11.5-16.0 Blood hematocrit (volume fraction) 39 % 35-52 Automated erythrocyte mean corpuscular volume 85 [ foz_us] 80-99 Automated erythrocyte mean corpuscular h emoglobin (mass per erythrocyte) 27 pg 25-34 Automated erythrocyte mean corpuscular h emoglobin concentration measurement (mass/volume) 31 g/dL 32-36 Automated erythrocyte distribution width ratio 13. 9 % 10.0- 14.5 Automated blood platelet count (count/volume) 267 10*3/uL 130-400 Automated blood platelet mean volume measurement 9.3 [foz_us] 7.4-10.4 Automated blood neutrophils/100 leukocytes 63 % 42-75 Automated blood lymphocytes/100 leukocytes 29 % 12-44 Blood monocytes/100 leukocytes 5 % 0-12 Automated blood eosinophils/100 leukocytes 2 % 0-10 Automated blood basophils/100 leukocytes 0 % 0-10 Blood neutrophils automated count (number/volume) 4.5 10*3 1.8-7.8 Blood lymphocytes automated count (number/volume) 2.1 10*3 1.0-4.0 Blood monocytes automated count (number/volume) 0. 4 10*3 0.0-1.0 Automated eosinophil count 0.2 10*3/uL 0 .0-0.3 Automated blood basophil count (count/volume) 0.0 10*3/uL 0.0-0.1 Comprehensive metabolic panel - 04/29/18 10:58 Serum or plasma sodium measurement (moles/volume) 141 mmol/L 135-145 Serum or plasma potassium measurement (moles/volume) 4.0 mmol/L 3.6-5.0 Serum or plasma chloride measurement (moles/volume) 108 mmol/L 98-107 Carbon dioxide 23 mmol/L 21-32 Serum or plasma anion gap determination (moles/volume) 10 mmol/L 5-14 Serum or plasma urea nitrogen measurement (mass/volume ) 15 mg/dL 7-18 Serum or plasma creatinine measurement (mass/volume) 0.83 mg/dL 0.60-1.30 Serum or plasma urea nitrogen/creatinine mass ratio 18 NRG Serum or plasma creatinine measurement w ith calculation of estimated glomerular filtration rate > NRG Serum or plasma glucose measurement (mass/volume) 88 mg/dL 70-105 Serum or plasma calcium measurement (mass/volume) 8.9 mg/dL 8.5-10.1 Serum or plasma total bilirubin measurement (mass/volu me) 0.2 mg/dL 0.1-1.0 Serum or plasma alkaline phosphatase allyson surement (enzymatic activity/volume) 59 U/L 40-136 Serum or plasma aspartate aminotransfera se measurement (enzymatic activity/volume) 27 U/L 5-34 Serum or plasma alanine aminotransferase measurement (enzymatic activity/volume) 19 U/L 0-55 Serum or plasma protein measurement (mass/volume) 7.1 g/dL 6.4-8.2 Serum or plasma albumin measurement (mass/volume) 3.7 g/dL 3.2-4.5 CALCIUM CORRECTED 9.1 mg/dL 8.5-10.1 Lipase - 04/29/18 10:58 Lipase 44 U/L 8-78 Complete urinalysis with reflex to cultu re - 04/29/18 11:48 Urine color determination YELLOW NRG Urine clarity determination CLEAR NR G Urine pH measurement by test strip 7 5-9 Specific gravity of urine by test strip 1.010 1.016-1.022 Urine protein assay by test strip, semi-quantitative 1+ NEGATIVE Urine glucose detection by automated test strip NE GATIVE NEGATIVE Erythrocytes detection in urine sediment by light micr oscopy NEGATIVE NEGATIVE Urine ketones detection by automated test strip NE GATIVE NEGATIVE Urine nitrite detection by test strip NEGATIVE NEGATIVE Urine total bilirubin detection by test strip NEGA TIVE NEGATIVE Urine urobilinogen measurement by automated test strip (mass/volume) NORMAL NORMAL Urine leukocyte esterase detection by dipstick NEG ATIVE NEGATIVE Automated urine sediment erythrocyte cou nt by microscopy (number/high power field) NONE NRG Automated urine sediment leukocyte count by microscopy (number/high power field) RARE NRG Bacteria detection in urine sediment by light microsco py FEW NRG Squamous epithelial cells detection in u rine sediment by light microscopy 10-25 NRG Crystals detection in urine sediment by light microsco py NONE NRG Casts detection in urine sediment by light microscopy NONE NRG Mucus detection in urine sediment by light microscopy NEGATIVE NRG Complete urinalysis with reflex to culture NO NRG Complete blood count (CBC) with automate d white blood cell (WBC) differential - 05/25/18 10:19 Blood leukocytes automated count (number/volume) 9.3 10*3/uL 4.3-11.0 Blood erythrocytes automated count (number/volume) 4.45 10*6/uL 4.35-5.85 Venous blood hemoglobin measurement (mass/volume) 12.0 g/dL 11.5-16.0 Blood hematocrit (volume fraction) 37 % 35-52 Automated erythrocyte mean corpuscular volume 83 [ foz_us] 80-99 Automated erythrocyte mean corpuscular h emoglobin (mass per erythrocyte) 27 pg 25-34 Automated erythrocyte mean corpuscular h emoglobin concentration measurement (mass/volume) 32 g/dL 32-36 Automated erythrocyte distribution width ratio 14. 0 % 10.0- 14.5 Automated blood platelet count (count/volume) 282 10*3/uL 130-400 Automated blood platelet mean volume measurement 9.3 [foz_us] 7.4-10.4 Automated blood neutrophils/100 leukocytes 70 % 42-75 Automated blood lymphocytes/100 leukocytes 24 % 12-44 Blood monocytes/100 leukocytes 4 % 0-12 Automated blood eosinophils/100 leukocytes 2 % 0-10 Automated blood basophils/100 leukocytes 0 % 0-10 Blood neutrophils automated count (number/volume) 6.5 10*3 1.8-7.8 Blood lymphocytes automated count (number/volume) 2.2 10*3 1.0-4.0 Blood monocytes automated count (number/volume) 0. 4 10*3 0.0-1.0 Automated eosinophil count 0.2 10*3/uL 0 .0-0.3 Automated blood basophil count (count/volume) 0.0 10*3/uL 0.0-0.1 Comprehensive metabolic panel - 05/25/18 10:19 Serum or plasma sodium measurement (moles/volume) 139 mmol/L 135-145 Serum or plasma potassium measurement (moles/volume) 4.0 mmol/L 3.6-5.0 Serum or plasma chloride measurement (moles/volume) 105 mmol/L 98-107 Carbon dioxide 22 mmol/L 21-32 Serum or plasma anion gap determination (moles/volume) 12 mmol/L 5-14 Serum or plasma urea nitrogen measurement (mass/volume ) 12 mg/dL 7-18 Serum or plasma creatinine measurement (mass/volume) 0.86 mg/dL 0.60-1.30 Serum or plasma urea nitrogen/creatinine mass ratio 14 NRG Serum or plasma creatinine measurement w ith calculation of estimated glomerular filtration rate > NRG Serum or plasma glucose measurement (mass/volume) 97 mg/dL 70-105 Serum or plasma calcium measurement (mass/volume) 9.1 mg/dL 8.5-10.1 Serum or plasma total bilirubin measurement (mass/volu me) 0.4 mg/dL 0.1-1.0 Serum or plasma alkaline phosphatase allyson surement (enzymatic activity/volume) 58 U/L 40-136 Serum or plasma aspartate aminotransfera se measurement (enzymatic activity/volume) 26 U/L 5-34 Serum or plasma alanine aminotransferase measurement (enzymatic activity/volume) 17 U/L 0-55 Serum or plasma protein measurement (mass/volume) 6.9 g/dL 6.4-8.2 Serum or plasma albumin measurement (mass/volume) 3.7 g/dL 3.2-4.5 CALCIUM CORRECTED 9.3 mg/dL 8.5-10.1 Lipase - 05/25/18 10:19 Lipase 66 U/L 8-78 Complete urinalysis with reflex to cultu re - 05/25/18 11:09 Urine color determination YELLOW NRG Urine clarity determination CLEAR NR G Urine pH measurement by test strip 5 5-9 Specific gravity of urine by test strip 1.010 1.016-1.022 Urine protein assay by test strip, semi-quantitative NEGATIVE NEGATIVE Urine glucose detection by automated test strip NE GATIVE NEGATIVE Erythrocytes detection in urine sediment by light micr oscopy NEGATIVE NEGATIVE Urine ketones detection by automated test strip NE GATIVE NEGATIVE Urine nitrite detection by test strip NEGATIVE NEGATIVE Urine total bilirubin detection by test strip NEGA TIVE NEGATIVE Urine urobilinogen measurement by automated test strip (mass/volume) NORMAL NORMAL Urine leukocyte esterase detection by dipstick NEG ATIVE NEGATIVE Automated urine sediment erythrocyte cou nt by microscopy (number/high power field) NONE NRG Automated urine sediment leukocyte count by microscopy (number/high power field) RARE NRG Bacteria detection in urine sediment by light microsco py TRACE NRG Squamous epithelial cells detection in u rine sediment by light microscopy 10-25 NRG Crystals detection in urine sediment by light microsco py NONE NRG Casts detection in urine sediment by light microscopy NONE NRG Mucus detection in urine sediment by light microscopy NEGATIVE NRG Complete urinalysis with reflex to culture NO NRG Complete urinalysis with reflex to cultu re - 06/01/18 04:05 Urine color determination YELLOW NRG Urine clarity determination SLIGHTLY CLOUDY NRG Urine pH measurement by test strip 6.5 5-9 Specific gravity of urine by test strip 1.015 1.016-1.022 Urine protein assay by test strip, semi-quantitative 1+ NEGATIVE Urine glucose detection by automated test strip NE GATIVE NEGATIVE Erythrocytes detection in urine sediment by light micr oscopy NEGATIVE NEGATIVE Urine ketones detection by automated test strip NE GATIVE NEGATIVE Urine nitrite detection by test strip NEGATIVE NEGATIVE Urine total bilirubin detection by test strip NEGA TIVE NEGATIVE Urine urobilinogen measurement by automated test strip (mass/volume) NORMAL NORMAL Urine leukocyte esterase detection by dipstick NEG ATIVE NEGATIVE Automated urine sediment erythrocyte cou nt by microscopy (number/high power field) NONE NRG Automated urine sediment leukocyte count by microscopy (number/high power field) NONE NRG Bacteria detection in urine sediment by light microsco py TRACE NRG Squamous epithelial cells detection in u rine sediment by light microscopy 25-50 NRG Crystals detection in urine sediment by light microsco py NONE NRG Casts detection in urine sediment by light microscopy NONE NRG Mucus detection in urine sediment by light microscopy NEGATIVE NRG Complete urinalysis with reflex to culture NO NRG Urine drug screening test - 06/01/18 04: 05 Urine phencyclidine detection by screening method NEGATIVE NEGATIVE Urine benzodiazepines detection by screening method NEGATIVE NEGATIVE Urine cocaine detection NEGATIVE NEGATI VE Urine amphetamines detection by screening method N EGATIVE NEGATIVE Urine methamphetamine detection by screening method NEGATIVE NEGATIVE Urine cannabinoids detection by screening method N EGATIVE NEGATIVE Urine opiates detection by screening method NEGATI VE NEGATIVE Urine barbiturates detection NEGATIVE N EGATIVE Screening urine tricyclic antidepressants detection NEGATIVE NEGATIVE Urine methadone detection by screening method NEGA TIVE NEGATIVE Urine oxycodone detection NEGATIVE NEGA TIVE Urine propoxyphene detection NEGATIVE N EGATIVE Complete blood count (CBC) with automate d white blood cell (WBC) differential - 06/01/18 04:48 Blood leukocytes automated count (number/volume) 9.2 10*3/uL 4.3-11.0 Blood erythrocytes automated count (number/volume) 4.27 10*6/uL 4.35-5.85 Venous blood hemoglobin measurement (mass/volume) 11.5 g/dL 11.5-16.0 Blood hematocrit (volume fraction) 36 % 35-52 Automated erythrocyte mean corpuscular volume 84 [ foz_us] 80-99 Automated erythrocyte mean corpuscular h emoglobin (mass per erythrocyte) 27 pg 25-34 Automated erythrocyte mean corpuscular h emoglobin concentration measurement (mass/volume) 32 g/dL 32-36 Automated erythrocyte distribution width ratio 14. 3 % 10.0- 14.5 Automated blood platelet count (count/volume) 292 10*3/uL 130-400 Automated blood platelet mean volume measurement 8.9 [foz_us] 7.4-10.4 Automated blood neutrophils/100 leukocytes 65 % 42-75 Automated blood lymphocytes/100 leukocytes 27 % 12-44 Blood monocytes/100 leukocytes 5 % 0-12 Automated blood eosinophils/100 leukocytes 3 % 0-10 Automated blood basophils/100 leukocytes 0 % 0-10 Blood neutrophils automated count (number/volume) 6.0 10*3 1.8-7.8 Blood lymphocytes automated count (number/volume) 2.5 10*3 1.0-4.0 Blood monocytes automated count (number/volume) 0. 5 10*3 0.0-1.0 Automated eosinophil count 0.2 10*3/uL 0 .0-0.3 Automated blood basophil count (count/volume) 0.0 10*3/uL 0.0-0.1 Comprehensive metabolic panel - 06/01/18 04:48 Serum or plasma sodium measurement (moles/volume) 141 mmol/L 135-145 Serum or plasma potassium measurement (moles/volume) 3.8 mmol/L 3.6-5.0 Serum or plasma chloride measurement (moles/volume) 107 mmol/L 98-107 Carbon dioxide 21 mmol/L 21-32 Serum or plasma anion gap determination (moles/volume) 13 mmol/L 5-14 Serum or plasma urea nitrogen measurement (mass/volume ) 15 mg/dL 7-18 Serum or plasma creatinine measurement (mass/volume) 0.83 mg/dL 0.60-1.30 Serum or plasma urea nitrogen/creatinine mass ratio 18 NRG Serum or plasma creatinine measurement w ith calculation of estimated glomerular filtration rate > NRG Serum or plasma glucose measurement (mass/volume) 117 mg/dL 70-105 Serum or plasma calcium measurement (mass/volume) 8.9 mg/dL 8.5-10.1 Serum or plasma total bilirubin measurement (mass/volu me) 0.3 mg/dL 0.1-1.0 Serum or plasma alkaline phosphatase allyson surement (enzymatic activity/volume) 60 U/L 40-136 Serum or plasma aspartate aminotransfera se measurement (enzymatic activity/volume) 29 U/L 5-34 Serum or plasma alanine aminotransferase measurement (enzymatic activity/volume) 19 U/L 0-55 Serum or plasma protein measurement (mass/volume) 6.9 g/dL 6.4-8.2 Serum or plasma albumin measurement (mass/volume) 3.6 g/dL 3.2-4.5 CALCIUM CORRECTED 9.2 mg/dL 8.5-10.1 Magnesium - 06/01/18 04:48 Magnesium 2.0 mg/dL 1.8-2.4 Serum or plasma amylase measurement (enz ymatic activity/volume) - 06/01/18 04:48 Serum or plasma amylase measurement (enzymatic activit y/volume) 76 U/L 25-125 Lipase - 06/01/18 04:48 Lipase 92 U/L 8-78 Complete urinalysis with reflex to cultu re - 06/24/18 09:34 Urine color determination YELLOW NRG Urine clarity determination CLEAR NR G Urine pH measurement by test strip 5 5-9 Specific gravity of urine by test strip 1.025 1.016-1.022 Urine protein assay by test strip, semi-quantitative NEGATIVE NEGATIVE Urine glucose detection by automated test strip NE GATIVE NEGATIVE Erythrocytes detection in urine sediment by light micr oscopy NEGATIVE NEGATIVE Urine ketones detection by automated test strip NE GATIVE NEGATIVE Urine nitrite detection by test strip NEGATIVE NEGATIVE Urine total bilirubin detection by test strip NEGA TIVE NEGATIVE Urine urobilinogen measurement by automated test strip (mass/volume) NORMAL NORMAL Urine leukocyte esterase detection by dipstick NEG ATIVE NEGATIVE Automated urine sediment erythrocyte cou nt by microscopy (number/high power field) NONE NRG Automated urine sediment leukocyte count by microscopy (number/high power field) RARE NRG Bacteria detection in urine sediment by light microsco py MODERATE NRG Squamous epithelial cells detection in u rine sediment by light microscopy 25-50 NRG Crystals detection in urine sediment by light microsco py NONE NRG Casts detection in urine sediment by light microscopy NONE NRG Mucus detection in urine sediment by light microscopy NEGATIVE NRG Complete urinalysis with reflex to culture NO NRG Complete urinalysis with reflex to cultu re - 07/01/18 09:18 Urine color determination YELLOW NRG Urine clarity determination CLEAR NR G Urine pH measurement by test strip 6 5-9 Specific gravity of urine by test strip 1.025 1.016-1.022 Urine protein assay by test strip, semi-quantitative 1+ NEGATIVE Urine glucose detection by automated test strip NE GATIVE NEGATIVE Erythrocytes detection in urine sediment by light micr oscopy NEGATIVE NEGATIVE Urine ketones detection by automated test strip NE GATIVE NEGATIVE Urine nitrite detection by test strip NEGATIVE NEGATIVE Urine total bilirubin detection by test strip NEGA TIVE NEGATIVE Urine urobilinogen measurement by automated test strip (mass/volume) NORMAL NORMAL Urine leukocyte esterase detection by dipstick NEG ATIVE NEGATIVE Automated urine sediment erythrocyte cou nt by microscopy (number/high power field) NONE NRG Automated urine sediment leukocyte count by microscopy (number/high power field) NONE NRG Bacteria detection in urine sediment by light microsco py LARGE NRG Squamous epithelial cells detection in u rine sediment by light microscopy 10-25 NRG Crystals detection in urine sediment by light microsco py NONE NRG Casts detection in urine sediment by light microscopy NONE NRG Mucus detection in urine sediment by light microscopy NEGATIVE NRG Complete urinalysis with reflex to culture NO NRG Complete blood count (CBC) with automate d white blood cell (WBC) differential - 07/01/18 09:33 Blood leukocytes automated count (number/volume) 13.3 10*3/uL 4.3-11.0 Blood erythrocytes automated count (number/volume) 4.64 10*6/uL 4.35-5.85 Venous blood hemoglobin measurement (mass/volume) 12.4 g/dL 11.5-16.0 Blood hematocrit (volume fraction) 39 % 35-52 Automated erythrocyte mean corpuscular volume 83 [ foz_us] 80-99 Automated erythrocyte mean corpuscular h emoglobin (mass per erythrocyte) 27 pg 25-34 Automated erythrocyte mean corpuscular h emoglobin concentration measurement (mass/volume) 32 g/dL 32-36 Automated erythrocyte distribution width ratio 14. 3 % 10.0- 14.5 Automated blood platelet count (count/volume) 308 10*3/uL 130-400 Automated blood platelet mean volume measurement 9.4 [foz_us] 7.4-10.4 Automated blood neutrophils/100 leukocytes 73 % 42-75 Automated blood lymphocytes/100 leukocytes 21 % 12-44 Blood monocytes/100 leukocytes 5 % 0-12 Automated blood eosinophils/100 leukocytes 2 % 0-10 Automated blood basophils/100 leukocytes 0 % 0-10 Blood neutrophils automated count (number/volume) 9.7 10*3 1.8-7.8 Blood lymphocytes automated count (number/volume) 2.8 10*3 1.0-4.0 Blood monocytes automated count (number/volume) 0. 6 10*3 0.0-1.0 Automated eosinophil count 0.2 10*3/uL 0 .0-0.3 Automated blood basophil count (count/volume) 0.0 10*3/uL 0.0-0.1 Comprehensive metabolic panel - 07/01/18 09:33 Serum or plasma sodium measurement (moles/volume) 138 mmol/L 135-145 Serum or plasma potassium measurement (moles/volume) 4.3 mmol/L 3.6-5.0 Serum or plasma chloride measurement (moles/volume) 103 mmol/L 98-107 Carbon dioxide 23 mmol/L 21-32 Serum or plasma anion gap determination (moles/volume) 12 mmol/L 5-14 Serum or plasma urea nitrogen measurement (mass/volume ) 14 mg/dL 7-18 Serum or plasma creatinine measurement (mass/volume) 0.97 mg/dL 0.60-1.30 Serum or plasma urea nitrogen/creatinine mass ratio 14 NRG Serum or plasma creatinine measurement w ith calculation of estimated glomerular filtration rate > NRG Serum or plasma glucose measurement (mass/volume) 93 mg/dL 70-105 Serum or plasma calcium measurement (mass/volume) 9.4 mg/dL 8.5-10.1 Serum or plasma total bilirubin measurement (mass/volu me) 0.3 mg/dL 0.1-1.0 Serum or plasma alkaline phosphatase allyson surement (enzymatic activity/volume) 60 U/L 40-136 Serum or plasma aspartate aminotransfera se measurement (enzymatic activity/volume) 24 U/L 5-34 Serum or plasma alanine aminotransferase measurement (enzymatic activity/volume) 17 U/L 0-55 Serum or plasma protein measurement (mass/volume) 7.4 g/dL 6.4-8.2 Serum or plasma albumin measurement (mass/volume) 3.6 g/dL 3.2-4.5 CALCIUM CORRECTED 9.7 mg/dL 8.5-10.1 Lipase - 07/01/18 09:33 Lipase 47 U/L 8-78 Complete blood count (CBC) with automate d white blood cell (WBC) differential - 07/07/18 06:25 Blood leukocytes automated count (number/volume) 9.7 10*3/uL 4.3-11.0 Blood erythrocytes automated count (number/volume) 4.42 10*6/uL 4.35-5.85 Venous blood hemoglobin measurement (mass/volume) 11.8 g/dL 11.5-16.0 Blood hematocrit (volume fraction) 37 % 35-52 Automated erythrocyte mean corpuscular volume 84 [ foz_us] 80-99 Automated erythrocyte mean corpuscular h emoglobin (mass per erythrocyte) 27 pg 25-34 Automated erythrocyte mean corpuscular h emoglobin concentration measurement (mass/volume) 32 g/dL 32-36 Automated erythrocyte distribution width ratio 14. 4 % 10.0- 14.5 Automated blood platelet count (count/volume) 300 10*3/uL 130-400 Automated blood platelet mean volume measurement 9.2 [foz_us] 7.4-10.4 Automated blood neutrophils/100 leukocytes 66 % 42-75 Automated blood lymphocytes/100 leukocytes 26 % 12-44 Blood monocytes/100 leukocytes 5 % 0-12 Automated blood eosinophils/100 leukocytes 2 % 0-10 Automated blood basophils/100 leukocytes 0 % 0-10 Blood neutrophils automated count (number/volume) 6.4 10*3 1.8-7.8 Blood lymphocytes automated count (number/volume) 2.6 10*3 1.0-4.0 Blood monocytes automated count (number/volume) 0. 5 10*3 0.0-1.0 Automated eosinophil count 0.2 10*3/uL 0 .0-0.3 Automated blood basophil count (count/volume) 0.0 10*3/uL 0.0-0.1 PT panel in platelet poor plasma by coag ulation assay - 07/07/18 06:25 Prothrombin time (PT) in platelet poor plasma by coagu lation assay 12.0 s 12.2-14.7 INR in platelet poor plasma or blood by coagulation as say 0.9 0.8-1.4 Activated partial thromboplastin time (a PTT) in platelet poor plasma bycoagulation assay - 07/07/18 06:25 Activated partial thromboplastin time (a PTT) in platelet poor plasma bycoagulation assay 31 s 24-35 Comprehensive metabolic panel - 07/07/18 06:25 Serum or plasma sodium measurement (moles/volume) 137 mmol/L 135-145 Serum or plasma potassium measurement (moles/volume) 3.8 mmol/L 3.6-5.0 Serum or plasma chloride measurement (moles/volume) 105 mmol/L 98-107 Carbon dioxide 23 mmol/L 21-32 Serum or plasma anion gap determination (moles/volume) 9 mmol/L 5-14 Serum or plasma urea nitrogen measurement (mass/volume ) 10 mg/dL 7-18 Serum or plasma creatinine measurement (mass/volume) 0.81 mg/dL 0.60-1.30 Serum or plasma urea nitrogen/creatinine mass ratio 12 NRG Serum or plasma creatinine measurement w ith calculation of estimated glomerular filtration rate > NRG Serum or plasma glucose measurement (mass/volume) 110 mg/dL 70-105 Serum or plasma calcium measurement (mass/volume) 8.7 mg/dL 8.5-10.1 Serum or plasma total bilirubin measurement (mass/volu me) 0.2 mg/dL 0.1-1.0 Serum or plasma alkaline phosphatase allyson surement (enzymatic activity/volume) 59 U/L 40-136 Serum or plasma aspartate aminotransfera se measurement (enzymatic activity/volume) 25 U/L 5-34 Serum or plasma alanine aminotransferase measurement (enzymatic activity/volume) 16 U/L 0-55 Serum or plasma protein measurement (mass/volume) 7.1 g/dL 6.4-8.2 Serum or plasma albumin measurement (mass/volume) 3.6 g/dL 3.2-4.5 CALCIUM CORRECTED 9.0 mg/dL 8.5-10.1 Magnesium - 07/07/18 06:25 Magnesium 2.1 mg/dL 1.8-2.4 Serum or plasma troponin i.cardiac measu rement (mass/volume) - 07/07/18 06:25 Serum or plasma troponin i.cardiac measurement (mass/v olume) < ng/mL <0.028 Myoglobin, serum - 07/07/18 06:25 Myoglobin, serum 34.2 ng/mL 10.0-92.0 Complete urinalysis with reflex to cultu re - 09/09/18 13:56 Urine color determination YELLOW NRG Urine clarity determination VERY CLOUDY NRG Urine pH measurement by test strip 5 5-9 Specific gravity of urine by test strip 1.020 1.016-1.022 Urine protein assay by test strip, semi-quantitative 1+ NEGATIVE Urine glucose detection by automated test strip NE GATIVE NEGATIVE Erythrocytes detection in urine sediment by light micr oscopy NEGATIVE NEGATIVE Urine ketones detection by automated test strip NE GATIVE NEGATIVE Urine nitrite detection by test strip NEGATIVE NEGATIVE Urine total bilirubin detection by test strip NEGA TIVE NEGATIVE Urine urobilinogen measurement by automated test strip (mass/volume) NORMAL NORMAL Urine leukocyte esterase detection by dipstick NEG ATIVE NEGATIVE Automated urine sediment erythrocyte cou nt by microscopy (number/high power field) NONE NRG Automated urine sediment leukocyte count by microscopy (number/high power field) [HPF] NRG Bacteria detection in urine sediment by light microsco py MODERATE NRG Squamous epithelial cells detection in u rine sediment by light microscopy 2-5 NRG Crystals detection in urine sediment by light microsco py NONE NRG Casts detection in urine sediment by light microscopy NONE NRG Mucus detection in urine sediment by light microscopy NEGATIVE NRG Complete urinalysis with reflex to culture YES NRG Bacterial urine culture - 09/09/18 13:56 Bacterial urine culture SEE REPORT NRG COLONY COUNT . NRG Complete urinalysis with reflex to cultu re - 09/20/18 22:18 Urine color determination YELLOW NRG Urine clarity determination VERY CLOUDY NRG Urine pH measurement by test strip 5 5-9 Specific gravity of urine by test strip 1.025 1.016-1.022 Urine protein assay by test strip, semi-quantitative 1+ NEGATIVE Urine glucose detection by automated test strip NE GATIVE NEGATIVE Erythrocytes detection in urine sediment by light micr oscopy NEGATIVE NEGATIVE Urine ketones detection by automated test strip NE GATIVE NEGATIVE Urine nitrite detection by test strip NEGATIVE NEGATIVE Urine total bilirubin detection by test strip NEGA TIVE NEGATIVE Urine urobilinogen measurement by automated test strip (mass/volume) NORMAL NORMAL Urine leukocyte esterase detection by dipstick NEG ATIVE NEGATIVE Automated urine sediment erythrocyte cou nt by microscopy (number/high power field) NONE NRG Automated urine sediment leukocyte count by microscopy (number/high power field) [HPF] NRG Bacteria detection in urine sediment by light microsco py LARGE NRG Squamous epithelial cells detection in u rine sediment by light microscopy 25-50 NRG Crystals detection in urine sediment by light microsco py NONE NRG Casts detection in urine sediment by light microscopy NONE NRG Mucus detection in urine sediment by light microscopy NEGATIVE NRG Complete urinalysis with reflex to culture YES NRG Bacterial urine culture - 09/20/18 22:18 Bacterial urine culture 3 OR MORE NRG COLONY COUNT >100,000/ML NRG FTX;REPORTABLE GRAM POSITIVE ISOLATES; SUGGESTING NRG FREE TEXT ENTRY 2 PROBABLE COLLECTION CONTAMINATIO N WITH NRG FREE TEXT ENTRY 3 SKIN RISHI. NO SUSCEPTIBILITY PE RFORMED. NRG Complete blood count (CBC) with automate d white blood cell (WBC) differential - 09/20/18 22:41 Blood leukocytes automated count (number/volume) 10.1 10*3/uL 4.3-11.0 Blood erythrocytes automated count (number/volume) 4.22 10*6/uL 4.35-5.85 Venous blood hemoglobin measurement (mass/volume) 11.8 g/dL 11.5-16.0 Blood hematocrit (volume fraction) 36 % 35-52 Automated erythrocyte mean corpuscular volume 85 [ foz_us] 80-99 Automated erythrocyte mean corpuscular h emoglobin (mass per erythrocyte) 28 pg 25-34 Automated erythrocyte mean corpuscular h emoglobin concentration measurement (mass/volume) 33 g/dL 32-36 Automated erythrocyte distribution width ratio 14. 9 % 10.0- 14.5 Automated blood platelet count (count/volume) 310 10*3/uL 130-400 Automated blood platelet mean volume measurement 9.4 [foz_us] 7.4-10.4 Automated blood neutrophils/100 leukocytes 62 % 42-75 Automated blood lymphocytes/100 leukocytes 31 % 12-44 Blood monocytes/100 leukocytes 5 % 0-12 Automated blood eosinophils/100 leukocytes 3 % 0-10 Automated blood basophils/100 leukocytes 0 % 0-10 Blood neutrophils automated count (number/volume) 6.2 10*3 1.8-7.8 Blood lymphocytes automated count (number/volume) 3.1 10*3 1.0-4.0 Blood monocytes automated count (number/volume) 0. 5 10*3 0.0-1.0 Automated eosinophil count 0.3 10*3/uL 0 .0-0.3 Automated blood basophil count (count/volume) 0.0 10*3/uL 0.0-0.1 PT panel in platelet poor plasma by coag ulation assay - 09/20/18 22:41 Prothrombin time (PT) in platelet poor plasma by coagu lation assay 12.6 s 12.2-14.7 INR in platelet poor plasma or blood by coagulation as say 0.9 0.8-1.4 Activated partial thromboplastin time (a PTT) in platelet poor plasma bycoagulation assay - 09/20/18 22:41 Activated partial thromboplastin time (a PTT) in platelet poor plasma bycoagulation assay 28 s 24-35 Comprehensive metabolic panel - 09/20/18 22:41 Serum or plasma sodium measurement (moles/volume) 143 mmol/L 135-145 Serum or plasma potassium measurement (moles/volume) 3.9 mmol/L 3.6-5.0 Serum or plasma chloride measurement (moles/volume) 109 mmol/L 98-107 Carbon dioxide 23 mmol/L 21-32 Serum or plasma anion gap determination (moles/volume) 11 mmol/L 5-14 Serum or plasma urea nitrogen measurement (mass/volume ) 14 mg/dL 7-18 Serum or plasma creatinine measurement (mass/volume) 0.92 mg/dL 0.60-1.30 Serum or plasma urea nitrogen/creatinine mass ratio 15 NRG Serum or plasma creatinine measurement w ith calculation of estimated glomerular filtration rate > NRG Serum or plasma glucose measurement (mass/volume) 100 mg/dL 70-105 Serum or plasma calcium measurement (mass/volume) 9.0 mg/dL 8.5-10.1 Serum or plasma total bilirubin measurement (mass/volu me) 0.2 mg/dL 0.1-1.0 Serum or plasma alkaline phosphatase allyson surement (enzymatic activity/volume) 58 U/L 40-136 Serum or plasma aspartate aminotransfera se measurement (enzymatic activity/volume) 37 U/L 5-34 Serum or plasma alanine aminotransferase measurement (enzymatic activity/volume) 23 U/L 0-55 Serum or plasma protein measurement (mass/volume) 7.2 g/dL 6.4-8.2 Serum or plasma albumin measurement (mass/volume) 3.9 g/dL 3.2-4.5 CALCIUM CORRECTED 9.1 mg/dL 8.5-10.1 Serum or plasma amylase measurement (enz ymatic activity/volume) - 09/20/18 22:41 Serum or plasma amylase measurement (enzymatic activit y/volume) 50 U/L 25-125 Lipase - 09/20/18 22:41 Lipase 37 U/L 8-78 CBC - 09/23/18 10:02 WHITE BLOOD CELL COUNT 8.4 Thousand/uL 3 .8-10.8 RED BLOOD CELL COUNT 4.61 Million/uL 3.8 0-5.10 HEMOGLOBIN 12.8 g/dL 11.7-15.5 HEMATOCRIT 38.8 % 35.0-45.0 MCV 84.2 fL 80.0-100.0 MCH 27.8 pg 27.0-33.0 MCHC 33.0 g/dL 32.0-36.0 RDW 14.6 % 11.0-15.0 PLATELET COUNT 324 Thousand/uL 140-400 MPV 9.9 fL 7.5-12.5 ABSOLUTE NEUTROPHILS 5611 cells/uL 1500- 7800 ABSOLUTE LYMPHOCYTES 2134 cells/uL 850-3 900 ABSOLUTE MONOCYTES 378 cells/uL 200-950 ABSOLUTE EOSINOPHILS 227 cells/uL 15-500 ABSOLUTE BASOPHILS 50 cells/uL 0-200 NEUTROPHILS 66.8 % NRG LYMPHOCYTES 25.4 % NRG MONOCYTES 4.5 % NRG EOSINOPHILS 2.7 % NRG BASOPHILS 0.6 % NRG Complete blood count (CBC) with automate d white blood cell (WBC) differential - 10/14/18 14:40 Blood leukocytes automated count (number/volume) 10.8 10*3/uL 4.3-11.0 Blood erythrocytes automated count (number/volume) 4.84 10*6/uL 4.35-5.85 Venous blood hemoglobin measurement (mass/volume) 13.1 g/dL 11.5-16.0 Blood hematocrit (volume fraction) 40 % 35-52 Automated erythrocyte mean corpuscular volume 84 [ foz_us] 80-99 Automated erythrocyte mean corpuscular h emoglobin (mass per erythrocyte) 27 pg 25-34 Automated erythrocyte mean corpuscular h emoglobin concentration measurement (mass/volume) 32 g/dL 32-36 Automated erythrocyte distribution width ratio 14. 1 % 10.0- 14.5 Automated blood platelet count (count/volume) 318 10*3/uL 130-400 Automated blood platelet mean volume measurement 9.3 [foz_us] 7.4-10.4 Automated blood neutrophils/100 leukocytes 73 % 42-75 Automated blood lymphocytes/100 leukocytes 19 % 12-44 Blood monocytes/100 leukocytes 5 % 0-12 Automated blood eosinophils/100 leukocytes 3 % 0-10 Automated blood basophils/100 leukocytes 0 % 0-10 Blood neutrophils automated count (number/volume) 7.9 10*3 1.8-7.8 Blood lymphocytes automated count (number/volume) 2.1 10*3 1.0-4.0 Blood monocytes automated count (number/volume) 0. 5 10*3 0.0-1.0 Automated eosinophil count 0.3 10*3/uL 0 .0-0.3 Automated blood basophil count (count/volume) 0.0 10*3/uL 0.0-0.1 Comprehensive metabolic panel - 10/14/18 14:40 Serum or plasma sodium measurement (moles/volume) 138 mmol/L 135-145 Serum or plasma potassium measurement (moles/volume) 3.9 mmol/L 3.6-5.0 Serum or plasma chloride measurement (moles/volume) 104 mmol/L 98-107 Carbon dioxide 23 mmol/L 21-32 Serum or plasma anion gap determination (moles/volume) 11 mmol/L 5-14 Serum or plasma urea nitrogen measurement (mass/volume ) 13 mg/dL 7-18 Serum or plasma creatinine measurement (mass/volume) 0.87 mg/dL 0.60-1.30 Serum or plasma urea nitrogen/creatinine mass ratio 15 NRG Serum or plasma creatinine measurement w ith calculation of estimated glomerular filtration rate > NRG Serum or plasma glucose measurement (mass/volume) 105 mg/dL 70-105 Serum or plasma calcium measurement (mass/volume) 9.9 mg/dL 8.5-10.1 Serum or plasma total bilirubin measurement (mass/volu me) 0.3 mg/dL 0.1-1.0 Serum or plasma alkaline phosphatase allyson surement (enzymatic activity/volume) 58 U/L 40-136 Serum or plasma aspartate aminotransfera se measurement (enzymatic activity/volume) 50 U/L 5-34 Serum or plasma alanine aminotransferase measurement (enzymatic activity/volume) 37 U/L 0-55 Serum or plasma protein measurement (mass/volume) 7.9 g/dL 6.4-8.2 Serum or plasma albumin measurement (mass/volume) 4.2 g/dL 3.2-4.5 CALCIUM CORRECTED 9.7 mg/dL 8.5-10.1 Lipase - 10/14/18 14:40 Lipase 43 U/L 8-78 Complete urinalysis with reflex to cultu re - 10/14/18 15:52 Urine color determination YELLOW NRG Urine clarity determination CLEAR NR G Urine pH measurement by test strip 5 5-9 Specific gravity of urine by test strip 1.020 1.016-1.022 Urine protein assay by test strip, semi-quantitative NEGATIVE NEGATIVE Urine glucose detection by automated test strip NE GATIVE NEGATIVE Erythrocytes detection in urine sediment by light micr oscopy NEGATIVE NEGATIVE Urine ketones detection by automated test strip NE GATIVE NEGATIVE Urine nitrite detection by test strip NEGATIVE NEGATIVE Urine total bilirubin detection by test strip NEGA TIVE NEGATIVE Urine urobilinogen measurement by automated test strip (mass/volume) NORMAL NORMAL Urine leukocyte esterase detection by dipstick NEG ATIVE NEGATIVE Automated urine sediment erythrocyte cou nt by microscopy (number/high power field) NONE NRG Automated urine sediment leukocyte count by microscopy (number/high power field) [HPF] NRG Bacteria detection in urine sediment by light microsco py NEGATIVE NRG Squamous epithelial cells detection in u rine sediment by light microscopy 2-5 NRG Crystals detection in urine sediment by light microsco py NONE NRG Casts detection in urine sediment by light microscopy NONE NRG Mucus detection in urine sediment by light microscopy SMALL NRG Complete urinalysis with reflex to culture NO NRG Renal epithelial cells detection in urin e sediment by light microscopy NONE NRG Complete blood count (CBC) with automate d white blood cell (WBC) differential - 10/14/18 22:07 Blood leukocytes automated count (number/volume) 13.1 10*3/uL 4.3-11.0 Blood erythrocytes automated count (number/volume) 4.87 10*6/uL 4.35-5.85 Venous blood hemoglobin measurement (mass/volume) 13.4 g/dL 11.5-16.0 Blood hematocrit (volume fraction) 41 % 35-52 Automated erythrocyte mean corpuscular volume 83 [ foz_us] 80-99 Automated erythrocyte mean corpuscular h emoglobin (mass per erythrocyte) 28 pg 25-34 Automated erythrocyte mean corpuscular h emoglobin concentration measurement (mass/volume) 33 g/dL 32-36 Automated erythrocyte distribution width ratio 14. 0 % 10.0- 14.5 Automated blood platelet count (count/volume) 294 10*3/uL 130-400 Automated blood platelet mean volume measurement 9.7 [foz_us] 7.4-10.4 Automated blood neutrophils/100 leukocytes 86 % 42-75 Automated blood lymphocytes/100 leukocytes 10 % 12-44 Blood monocytes/100 leukocytes 3 % 0-12 Automated blood eosinophils/100 leukocytes 1 % 0-10 Automated blood basophils/100 leukocytes 0 % 0-10 Blood neutrophils automated count (number/volume) 11.2 10*3 1.8-7.8 Blood lymphocytes automated count (number/volume) 1.3 10*3 1.0-4.0 Blood monocytes automated count (number/volume) 0. 4 10*3 0.0-1.0 Automated eosinophil count 0.2 10*3/uL 0 .0-0.3 Automated blood basophil count (count/volume) 0.0 10*3/uL 0.0-0.1 Comprehensive metabolic panel - 10/14/18 22:07 Serum or plasma sodium measurement (moles/volume) 142 mmol/L 135-145 Serum or plasma potassium measurement (moles/volume) 4.1 mmol/L 3.6-5.0 Serum or plasma chloride measurement (moles/volume) 106 mmol/L 98-107 Carbon dioxide 20 mmol/L 21-32 Serum or plasma anion gap determination (moles/volume) 16 mmol/L 5-14 Serum or plasma urea nitrogen measurement (mass/volume ) 16 mg/dL 7-18 Serum or plasma creatinine measurement (mass/volume) 1.07 mg/dL 0.60-1.30 Serum or plasma urea nitrogen/creatinine mass ratio 15 NRG Serum or plasma creatinine measurement w ith calculation of estimated glomerular filtration rate 59 NRG Serum or plasma glucose measurement (mass/volume) 120 mg/dL 70-105 Serum or plasma calcium measurement (mass/volume) 10.5 mg/dL 8.5-10.1 Serum or plasma total bilirubin measurement (mass/volu me) 0.3 mg/dL 0.1-1.0 Serum or plasma alkaline phosphatase allyson surement (enzymatic activity/volume) 64 U/L 40-136 Serum or plasma aspartate aminotransfera se measurement (enzymatic activity/volume) 66 U/L 5-34 Serum or plasma alanine aminotransferase measurement (enzymatic activity/volume) 43 U/L 0-55 Serum or plasma protein measurement (mass/volume) 7.7 g/dL 6.4-8.2 Serum or plasma albumin measurement (mass/volume) 4.3 g/dL 3.2-4.5 CALCIUM CORRECTED 10.3 mg/dL 8.5-10.1 Complete blood count (CBC) with automate d white blood cell (WBC) differential - 10/15/18 04:10 Blood leukocytes automated count (number/volume) 9.8 10*3/uL 4.3-11.0 Blood erythrocytes automated count (number/volume) 4.40 10*6/uL 4.35-5.85 Venous blood hemoglobin measurement (mass/volume) 12.0 g/dL 11.5-16.0 Blood hematocrit (volume fraction) 37 % 35-52 Automated erythrocyte mean corpuscular volume 85 [ foz_us] 80-99 Automated erythrocyte mean corpuscular h emoglobin (mass per erythrocyte) 27 pg 25-34 Automated erythrocyte mean corpuscular h emoglobin concentration measurement (mass/volume) 32 g/dL 32-36 Automated erythrocyte distribution width ratio 14. 1 % 10.0- 14.5 Automated blood platelet count (count/volume) 270 10*3/uL 130-400 Automated blood platelet mean volume measurement 9.8 [foz_us] 7.4-10.4 Automated blood neutrophils/100 leukocytes 71 % 42-75 Automated blood lymphocytes/100 leukocytes 22 % 12-44 Blood monocytes/100 leukocytes 5 % 0-12 Automated blood eosinophils/100 leukocytes 2 % 0-10 Automated blood basophils/100 leukocytes 0 % 0-10 Blood neutrophils automated count (number/volume) 7.0 10*3 1.8-7.8 Blood lymphocytes automated count (number/volume) 2.1 10*3 1.0-4.0 Blood monocytes automated count (number/volume) 0. 5 10*3 0.0-1.0 Automated eosinophil count 0.2 10*3/uL 0 .0-0.3 Automated blood basophil count (count/volume) 0.0 10*3/uL 0.0-0.1 Comprehensive metabolic panel - 10/15/18 04:10 Serum or plasma sodium measurement (moles/volume) 143 mmol/L 135-145 Serum or plasma potassium measurement (moles/volume) 3.9 mmol/L 3.6-5.0 Serum or plasma chloride measurement (moles/volume) 109 mmol/L 98-107 Carbon dioxide 21 mmol/L 21-32 Serum or plasma anion gap determination (moles/volume) 13 mmol/L 5-14 Serum or plasma urea nitrogen measurement (mass/volume ) 17 mg/dL 7-18 Serum or plasma creatinine measurement (mass/volume) 0.91 mg/dL 0.60-1.30 Serum or plasma urea nitrogen/creatinine mass ratio 19 NRG Serum or plasma creatinine measurement w ith calculation of estimated glomerular filtration rate > NRG Serum or plasma glucose measurement (mass/volume) 98 mg/dL 70-105 Serum or plasma calcium measurement (mass/volume) 9.4 mg/dL 8.5-10.1 Serum or plasma total bilirubin measurement (mass/volu me) 0.3 mg/dL 0.1-1.0 Serum or plasma alkaline phosphatase allyson surement (enzymatic activity/volume) 55 U/L 40-136 Serum or plasma aspartate aminotransfera se measurement (enzymatic activity/volume) 52 U/L 5-34 Serum or plasma alanine aminotransferase measurement (enzymatic activity/volume) 37 U/L 0-55 Serum or plasma protein measurement (mass/volume) 6.9 g/dL 6.4-8.2 Serum or plasma albumin measurement (mass/volume) 3.8 g/dL 3.2-4.5 CALCIUM CORRECTED 9.6 mg/dL 8.5-10.1 Automated blood complete blood count (he mogram) panel - 10/16/18 05:20 Blood leukocytes automated count (number/volume) 6.3 10*3/uL 4.3-11.0 Blood erythrocytes automated count (number/volume) 3.95 10*6/uL 4.35-5.85 Venous blood hemoglobin measurement (mass/volume) 10.9 g/dL 11.5-16.0 Blood hematocrit (volume fraction) 34 % 35-52 Automated erythrocyte mean corpuscular volume 87 [ foz_us] 80-99 Automated erythrocyte mean corpuscular h emoglobin (mass per erythrocyte) 28 pg 25-34 Automated erythrocyte mean corpuscular h emoglobin concentration measurement (mass/volume) 32 g/dL 32-36 Automated erythrocyte distribution width ratio 14. 2 % 10.0- 14.5 Automated blood platelet count (count/volume) 241 10*3/uL 130-400 Automated blood platelet mean volume measurement 9.3 [foz_us] 7.4-10.4 Comprehensive metabolic panel - 10/16/18 05:20 Serum or plasma sodium measurement (moles/volume) 143 mmol/L 135-145 Serum or plasma potassium measurement (moles/volume) 3.8 mmol/L 3.6-5.0 Serum or plasma chloride measurement (moles/volume) 107 mmol/L 98-107 Carbon dioxide 23 mmol/L 21-32 Serum or plasma anion gap determination (moles/volume) 13 mmol/L 5-14 Serum or plasma urea nitrogen measurement (mass/volume ) 12 mg/dL 7-18 Serum or plasma creatinine measurement (mass/volume) 0.86 mg/dL 0.60-1.30 Serum or plasma urea nitrogen/creatinine mass ratio 14 NRG Serum or plasma creatinine measurement w ith calculation of estimated glomerular filtration rate > NRG Serum or plasma glucose measurement (mass/volume) 84 mg/dL 70-105 Serum or plasma calcium measurement (mass/volume) 8.6 mg/dL 8.5-10.1 Serum or plasma total bilirubin measurement (mass/volu me) 0.3 mg/dL 0.1-1.0 Serum or plasma alkaline phosphatase allyson surement (enzymatic activity/volume) 51 U/L 40-136 Serum or plasma aspartate aminotransfera se measurement (enzymatic activity/volume) 73 U/L 5-34 Serum or plasma alanine aminotransferase measurement (enzymatic activity/volume) 43 U/L 0-55 Serum or plasma protein measurement (mass/volume) 6.2 g/dL 6.4-8.2 Serum or plasma albumin measurement (mass/volume) 3.4 g/dL 3.2-4.5 CALCIUM CORRECTED 9.1 mg/dL 8.5-10.1 SUREPATH PAP RFX HPV mRNA E6/E7 - 17:12 CLINICAL INFORMATION: NRG LMP: NRG PREV. PAP: NRG PREV. BX: NRG SOURCE: [employer] NRG STATEMENT OF ADEQUACY: NRG INTERPRETATION/RESULT: NRG [employer]: NRG COMMENT NRG Methicillin resistant Staphylococcus aur eus (MRSA) screening culture - 10/22/18 07:38 Methicillin resistant Staphylococcus aureus (MRSA) scr eening culture NEG NRG Complete blood count (CBC) with automate d white blood cell (WBC) differential - 10/29/18 14:27 Blood leukocytes automated count (number/volume) 11.0 10*3/uL 4.3-11.0 Blood erythrocytes automated count (number/volume) 4.54 10*6/uL 4.35-5.85 Venous blood hemoglobin measurement (mass/volume) 12.3 g/dL 11.5-16.0 Blood hematocrit (volume fraction) 39 % 35-52 Automated erythrocyte mean corpuscular volume 86 [ foz_us] 80-99 Automated erythrocyte mean corpuscular h emoglobin (mass per erythrocyte) 27 pg 25-34 Automated erythrocyte mean corpuscular h emoglobin concentration measurement (mass/volume) 32 g/dL 32-36 Automated erythrocyte distribution width ratio 13. 8 % 10.0- 14.5 Automated blood platelet count (count/volume) 323 10*3/uL 130-400 Automated blood platelet mean volume measurement 9.7 [foz_us] 7.4-10.4 Automated blood neutrophils/100 leukocytes 67 % 42-75 Automated blood lymphocytes/100 leukocytes 23 % 12-44 Blood monocytes/100 leukocytes 6 % 0-12 Automated blood eosinophils/100 leukocytes 4 % 0-10 Automated blood basophils/100 leukocytes 0 % 0-10 Blood neutrophils automated count (number/volume) 7.4 10*3 1.8-7.8 Blood lymphocytes automated count (number/volume) 2.5 10*3 1.0-4.0 Blood monocytes automated count (number/volume) 0. 6 10*3 0.0-1.0 Automated eosinophil count 0.4 10*3/uL 0 .0-0.3 Automated blood basophil count (count/volume) 0.0 10*3/uL 0.0-0.1 Comprehensive metabolic panel - 10/29/18 14:27 Serum or plasma sodium measurement (moles/volume) 143 mmol/L 135-145 Serum or plasma potassium measurement (moles/volume) 4.0 mmol/L 3.6-5.0 Serum or plasma chloride measurement (moles/volume) 107 mmol/L 98-107 Carbon dioxide 21 mmol/L 21-32 Serum or plasma anion gap determination (moles/volume) 15 mmol/L 5-14 Serum or plasma urea nitrogen measurement (mass/volume ) 17 mg/dL 7-18 Serum or plasma creatinine measurement (mass/volume) 1.04 mg/dL 0.60-1.30 Serum or plasma urea nitrogen/creatinine mass ratio 16 NRG Serum or plasma creatinine measurement w ith calculation of estimated glomerular filtration rate > NRG Serum or plasma glucose measurement (mass/volume) 106 mg/dL 70-105 Serum or plasma calcium measurement (mass/volume) 10.2 mg/dL 8.5-10.1 Serum or plasma total bilirubin measurement (mass/volu me) 0.4 mg/dL 0.1-1.0 Serum or plasma alkaline phosphatase allyson surement (enzymatic activity/volume) 72 U/L 40-136 Serum or plasma aspartate aminotransfera se measurement (enzymatic activity/volume) 39 U/L 5-34 Serum or plasma alanine aminotransferase measurement (enzymatic activity/volume) 29 U/L 0-55 Serum or plasma protein measurement (mass/volume) 8.0 g/dL 6.4-8.2 Serum or plasma albumin measurement (mass/volume) 4.3 g/dL 3.2-4.5 CALCIUM CORRECTED 10.0 mg/dL 8.5-10.1 Serum or plasma amylase measurement (enz ymatic activity/volume) - 10/29/18 14:27 Serum or plasma amylase measurement (enzymatic activit y/volume) 43 U/L 25-125 Lipase - 10/29/18 14:27 Lipase 29 U/L 8-78 Complete urinalysis with reflex to cultu re - 10/29/18 14:31 Urine color determination PEREZ NRG Urine clarity determination CLEAR NR G Urine pH measurement by test strip 5 5-9 Specific gravity of urine by test strip 1.020 1.016-1.022 Urine protein assay by test strip, semi-quantitative 2+ NEGATIVE Urine glucose detection by automated test strip NE GATIVE NEGATIVE Erythrocytes detection in urine sediment by light micr oscopy NEGATIVE NEGATIVE Urine ketones detection by automated test strip NE GATIVE NEGATIVE Urine nitrite detection by test strip NEGATIVE NEGATIVE Urine total bilirubin detection by test strip NEGA TIVE NEGATIVE Urine urobilinogen measurement by automated test strip (mass/volume) NORMAL NORMAL Urine leukocyte esterase detection by dipstick 1+ NEGATIVE Automated urine sediment erythrocyte cou nt by microscopy (number/high power field) NONE NRG Automated urine sediment leukocyte count by microscopy (number/high power field) [HPF] NRG Bacteria detection in urine sediment by light microsco py MODERATE NRG Squamous epithelial cells detection in u rine sediment by light microscopy 10-25 NRG Crystals detection in urine sediment by light microsco py NONE NRG Casts detection in urine sediment by light microscopy NONE NRG Mucus detection in urine sediment by light microscopy MODERATE NRG Complete urinalysis with reflex to culture YES NRG Bacterial urine culture - 10/29/18 14:31 Bacterial urine culture NG NRG Complete blood count (CBC) with automate d white blood cell (WBC) differential - 11/11/18 11:29 Blood leukocytes automated count (number/volume) 7.4 10*3/uL 4.3-11.0 Blood erythrocytes automated count (number/volume) 4.66 10*6/uL 4.35-5.85 Venous blood hemoglobin measurement (mass/volume) 12.5 g/dL 11.5-16.0 Blood hematocrit (volume fraction) 39 % 35-52 Automated erythrocyte mean corpuscular volume 84 [ foz_us] 80-99 Automated erythrocyte mean corpuscular h emoglobin (mass per erythrocyte) 27 pg 25-34 Automated erythrocyte mean corpuscular h emoglobin concentration measurement (mass/volume) 32 g/dL 32-36 Automated erythrocyte distribution width ratio 13. 9 % 10.0- 14.5 Automated blood platelet count (count/volume) 289 10*3/uL 130-400 Automated blood platelet mean volume measurement 9.8 [foz_us] 7.4-10.4 Automated blood neutrophils/100 leukocytes 55 % 42-75 Automated blood lymphocytes/100 leukocytes 34 % 12-44 Blood monocytes/100 leukocytes 5 % 0-12 Automated blood eosinophils/100 leukocytes 5 % 0-10 Automated blood basophils/100 leukocytes 0 % 0-10 Blood neutrophils automated count (number/volume) 4.1 10*3 1.8-7.8 Blood lymphocytes automated count (number/volume) 2.5 10*3 1.0-4.0 Blood monocytes automated count (number/volume) 0. 4 10*3 0.0-1.0 Automated eosinophil count 0.4 10*3/uL 0 .0-0.3 Automated blood basophil count (count/volume) 0.0 10*3/uL 0.0-0.1 Comprehensive metabolic panel - 11/11/18 11:29 Serum or plasma sodium measurement (moles/volume) 140 mmol/L 135-145 Serum or plasma potassium measurement (moles/volume) 4.0 mmol/L 3.6-5.0 Serum or plasma chloride measurement (moles/volume) 109 mmol/L 98-107 Carbon dioxide 22 mmol/L 21-32 Serum or plasma anion gap determination (moles/volume) 9 mmol/L 5-14 Serum or plasma urea nitrogen measurement (mass/volume ) 15 mg/dL 7-18 Serum or plasma creatinine measurement (mass/volume) 0.86 mg/dL 0.60-1.30 Serum or plasma urea nitrogen/creatinine mass ratio 17 NRG Serum or plasma creatinine measurement w ith calculation of estimated glomerular filtration rate > NRG Serum or plasma glucose measurement (mass/volume) 99 mg/dL 70-105 Serum or plasma calcium measurement (mass/volume) 9.6 mg/dL 8.5-10.1 Serum or plasma total bilirubin measurement (mass/volu me) 0.2 mg/dL 0.1-1.0 Serum or plasma alkaline phosphatase allyson surement (enzymatic activity/volume) 63 U/L 40-136 Serum or plasma aspartate aminotransfera se measurement (enzymatic activity/volume) 37 U/L 5-34 Serum or plasma alanine aminotransferase measurement (enzymatic activity/volume) 25 U/L 0-55 Serum or plasma protein measurement (mass/volume) 7.8 g/dL 6.4-8.2 Serum or plasma albumin measurement (mass/volume) 4.3 g/dL 3.2-4.5 CALCIUM CORRECTED 9.4 mg/dL 8.5-10.1 Serum or plasma amylase measurement (enz ymatic activity/volume) - 11/11/18 11:29 Serum or plasma amylase measurement (enzymatic activit y/volume) 51 U/L 25-125 Lipase - 11/11/18 11:29 Lipase 35 U/L 8-78 Complete urinalysis with reflex to cultu re - 11/11/18 11:59 Urine color determination YELLOW NRG Urine clarity determination SLIGHTLY CLOUDY NRG Urine pH measurement by test strip 5 5-9 Specific gravity of urine by test strip 1.025 1.016-1.022 Urine protein assay by test strip, semi-quantitative 1+ NEGATIVE Urine glucose detection by automated test strip NE GATIVE NEGATIVE Erythrocytes detection in urine sediment by light micr oscopy NEGATIVE NEGATIVE Urine ketones detection by automated test strip NE GATIVE NEGATIVE Urine nitrite detection by test strip NEGATIVE NEGATIVE Urine total bilirubin detection by test strip NEGA TIVE NEGATIVE Urine urobilinogen measurement by automated test strip (mass/volume) NORMAL NORMAL Urine leukocyte esterase detection by dipstick 1+ NEGATIVE Automated urine sediment erythrocyte cou nt by microscopy (number/high power field) NONE NRG Automated urine sediment leukocyte count by microscopy (number/high power field) [HPF] NRG Bacteria detection in urine sediment by light microsco py MODERATE NRG Squamous epithelial cells detection in u rine sediment by light microscopy 25-50 NRG Crystals detection in urine sediment by light microsco py NONE NRG Casts detection in urine sediment by light microscopy NONE NRG Mucus detection in urine sediment by light microscopy NEGATIVE NRG Complete urinalysis with reflex to culture YES NRG Bacterial urine culture - 11/11/18 11:59 Bacterial urine culture 3 OR MORE NRG COLONY COUNT 10,000 CFU/ML NRG FTX;REPORTABLE SUGGESTING PROBABLE COLLECTION NRG FREE TEXT ENTRY 2 CONTAMINATION WITH SKIN RISHI NRG FREE TEXT ENTRY 3 NO SUSCEPTIBILITY PERFORMED NRG Complete blood count (CBC) with automate d white blood cell (WBC) differential - 11/15/18 14:18 Blood leukocytes automated count (number/volume) 7.8 10*3/uL 4.3-11.0 Blood erythrocytes automated count (number/volume) 4.35 10*6/uL 4.35-5.85 Venous blood hemoglobin measurement (mass/volume) 11.7 g/dL 11.5-16.0 Blood hematocrit (volume fraction) 36 % 35-52 Automated erythrocyte mean corpuscular volume 83 [ foz_us] 80-99 Automated erythrocyte mean corpuscular h emoglobin (mass per erythrocyte) 27 pg 25-34 Automated erythrocyte mean corpuscular h emoglobin concentration measurement (mass/volume) 32 g/dL 32-36 Automated erythrocyte distribution width ratio 13. 5 % 10.0- 14.5 Automated blood platelet count (count/volume) 290 10*3/uL 130-400 Automated blood platelet mean volume measurement 9.6 [foz_us] 7.4-10.4 Automated blood neutrophils/100 leukocytes 57 % 42-75 Automated blood lymphocytes/100 leukocytes 32 % 12-44 Blood monocytes/100 leukocytes 5 % 0-12 Automated blood eosinophils/100 leukocytes 6 % 0-10 Automated blood basophils/100 leukocytes 0 % 0-10 Blood neutrophils automated count (number/volume) 4.4 10*3 1.8-7.8 Blood lymphocytes automated count (number/volume) 2.5 10*3 1.0-4.0 Blood monocytes automated count (number/volume) 0. 4 10*3 0.0-1.0 Automated eosinophil count 0.5 10*3/uL 0 .0-0.3 Automated blood basophil count (count/volume) 0.0 10*3/uL 0.0-0.1 Comprehensive metabolic panel - 11/15/18 14:18 Serum or plasma sodium measurement (moles/volume) 140 mmol/L 135-145 Serum or plasma potassium measurement (moles/volume) 3.9 mmol/L 3.6-5.0 Serum or plasma chloride measurement (moles/volume) 108 mmol/L 98-107 Carbon dioxide 22 mmol/L 21-32 Serum or plasma anion gap determination (moles/volume) 10 mmol/L 5-14 Serum or plasma urea nitrogen measurement (mass/volume ) 14 mg/dL 7-18 Serum or plasma creatinine measurement (mass/volume) 0.99 mg/dL 0.60-1.30 Serum or plasma urea nitrogen/creatinine mass ratio 14 NRG Serum or plasma creatinine measurement w ith calculation of estimated glomerular filtration rate > NRG Serum or plasma glucose measurement (mass/volume) 97 mg/dL 70-105 Serum or plasma calcium measurement (mass/volume) 9.7 mg/dL 8.5-10.1 Serum or plasma total bilirubin measurement (mass/volu me) 0.3 mg/dL 0.1-1.0 Serum or plasma alkaline phosphatase allyson surement (enzymatic activity/volume) 67 U/L 40-136 Serum or plasma aspartate aminotransfera se measurement (enzymatic activity/volume) 30 U/L 5-34 Serum or plasma alanine aminotransferase measurement (enzymatic activity/volume) 26 U/L 0-55 Serum or plasma protein measurement (mass/volume) 7.6 g/dL 6.4-8.2 Serum or plasma albumin measurement (mass/volume) 4.3 g/dL 3.2-4.5 CALCIUM CORRECTED 9.5 mg/dL 8.5-10.1 Serum or plasma amylase measurement (enz ymatic activity/volume) - 11/15/18 14:18 Serum or plasma amylase measurement (enzymatic activit y/volume) 52 U/L 25-125 Lipase - 11/15/18 14:18 Lipase 48 U/L 8-78 Complete urinalysis with reflex to cultu re - 11/15/18 14:25 Urine color determination YELLOW NRG Urine clarity determination VERY CLOUDY NRG Urine pH measurement by test strip 5 5-9 Specific gravity of urine by test strip 1.020 1.016-1.022 Urine protein assay by test strip, semi-quantitative NEGATIVE NEGATIVE Urine glucose detection by automated test strip NE GATIVE NEGATIVE Erythrocytes detection in urine sediment by light micr oscopy NEGATIVE NEGATIVE Urine ketones detection by automated test strip NE GATIVE NEGATIVE Urine nitrite detection by test strip NEGATIVE NEGATIVE Urine total bilirubin detection by test strip NEGA TIVE NEGATIVE Urine urobilinogen measurement by automated test strip (mass/volume) NORMAL NORMAL Urine leukocyte esterase detection by dipstick NEG ATIVE NEGATIVE Automated urine sediment erythrocyte cou nt by microscopy (number/high power field) NONE NRG Automated urine sediment leukocyte count by microscopy (number/high power field) [HPF] NRG Bacteria detection in urine sediment by light microsco py LARGE NRG Squamous epithelial cells detection in u rine sediment by light microscopy 5-10 NRG Crystals detection in urine sediment by light microsco py NONE NRG Casts detection in urine sediment by light microscopy NONE NRG Mucus detection in urine sediment by light microscopy SMALL NRG Complete urinalysis with reflex to culture NO NRG Complete blood count (CBC) with automate d white blood cell (WBC) differential - 12/10/18 13:57 Blood leukocytes automated count (number/volume) 8.3 10*3/uL 4.3-11.0 Blood erythrocytes automated count (number/volume) 4.88 10*6/uL 4.35-5.85 Venous blood hemoglobin measurement (mass/volume) 13.1 g/dL 11.5-16.0 Blood hematocrit (volume fraction) 40 % 35-52 Automated erythrocyte mean corpuscular volume 82 [ foz_us] 80-99 Automated erythrocyte mean corpuscular h emoglobin (mass per erythrocyte) 27 pg 25-34 Automated erythrocyte mean corpuscular h emoglobin concentration measurement (mass/volume) 33 g/dL 32-36 Automated erythrocyte distribution width ratio 14. 4 % 10.0- 14.5 Automated blood platelet count (count/volume) 299 10*3/uL 130-400 Automated blood platelet mean volume measurement 9.6 [foz_us] 7.4-10.4 Automated blood neutrophils/100 leukocytes 64 % 42-75 Automated blood lymphocytes/100 leukocytes 29 % 12-44 Blood monocytes/100 leukocytes 4 % 0-12 Automated blood eosinophils/100 leukocytes 3 % 0-10 Automated blood basophils/100 leukocytes 0 % 0-10 Blood neutrophils automated count (number/volume) 5.3 10*3 1.8-7.8 Blood lymphocytes automated count (number/volume) 2.4 10*3 1.0-4.0 Blood monocytes automated count (number/volume) 0. 4 10*3 0.0-1.0 Automated eosinophil count 0.2 10*3/uL 0 .0-0.3 Automated blood basophil count (count/volume) 0.0 10*3/uL 0.0-0.1 Comprehensive metabolic panel - 12/10/18 14:24 Serum or plasma sodium measurement (moles/volume) 140 mmol/L 135-145 Serum or plasma potassium measurement (moles/volume) 3.8 mmol/L 3.6-5.0 Serum or plasma chloride measurement (moles/volume) 105 mmol/L 98-107 Carbon dioxide 23 mmol/L 21-32 Serum or plasma anion gap determination (moles/volume) 12 mmol/L 5-14 Serum or plasma urea nitrogen measurement (mass/volume ) 15 mg/dL 7-18 Serum or plasma creatinine measurement (mass/volume) 1.07 mg/dL 0.60-1.30 Serum or plasma urea nitrogen/creatinine mass ratio 14 NRG Serum or plasma creatinine measurement w ith calculation of estimated glomerular filtration rate 59 NRG Serum or plasma glucose measurement (mass/volume) 125 mg/dL 70-105 Serum or plasma calcium measurement (mass/volume) 9.8 mg/dL 8.5-10.1 Serum or plasma total bilirubin measurement (mass/volu me) 0.3 mg/dL 0.1-1.0 Serum or plasma alkaline phosphatase allyson surement (enzymatic activity/volume) 66 U/L 40-136 Serum or plasma aspartate aminotransfera se measurement (enzymatic activity/volume) 59 U/L 5-34 Serum or plasma alanine aminotransferase measurement (enzymatic activity/volume) 31 U/L 0-55 Serum or plasma protein measurement (mass/volume) 7.2 g/dL 6.4-8.2 Serum or plasma albumin measurement (mass/volume) 3.9 g/dL 3.2-4.5 CALCIUM CORRECTED 9.9 mg/dL 8.5-10.1 Magnesium - 12/10/18 14:24 Magnesium 2.0 mg/dL 1.8-2.4 Lipase - 12/10/18 14:24 Lipase 35 U/L 8-78 Serum or plasma C reactive protein measu rement (mass/volume) - 12/10/18 14:24 Serum or plasma C reactive protein measurement (mass/v olume) 2.05 mg/dL 0.00-0.50 Complete urinalysis with reflex to cultu re - 12/10/18 14:27 Urine color determination YELLOW NRG Urine clarity determination CLEAR NR G Urine pH measurement by test strip 5 5-9 Specific gravity of urine by test strip 1.025 1.016-1.022 Urine protein assay by test strip, semi-quantitative 1+ NEGATIVE Urine glucose detection by automated test strip NE GATIVE NEGATIVE Erythrocytes detection in urine sediment by light micr oscopy NEGATIVE NEGATIVE Urine ketones detection by automated test strip NE GATIVE NEGATIVE Urine nitrite detection by test strip NEGATIVE NEGATIVE Urine total bilirubin detection by test strip NEGA TIVE NEGATIVE Urine urobilinogen measurement by automated test strip (mass/volume) NORMAL NORMAL Urine leukocyte esterase detection by dipstick NEG ATIVE NEGATIVE Automated urine sediment erythrocyte cou nt by microscopy (number/high power field) RARE NRG Automated urine sediment leukocyte count by microscopy (number/high power field) [HPF] NRG Bacteria detection in urine sediment by light microsco py MODERATE NRG Squamous epithelial cells detection in u rine sediment by light microscopy 10-25 NRG Crystals detection in urine sediment by light microsco py NONE NRG Casts detection in urine sediment by light microscopy NONE NRG Mucus detection in urine sediment by light microscopy SMALL NRG Complete urinalysis with reflex to culture NO NRG CMP - 12/29/18 08:28 GLUCOSE 99 mg/dL 65-99 UREA NITROGEN (BUN) 15 mg/dL 7-25 CREATININE 0.75 mg/dL 0.50-1.10 eGFR NON-AFR. [place] 104 mL/min/1.73m2 > OR = 60 eGFR 121 mL/min/1.73m2 > OR = 60 BUN/CREATININE RATIO NOT APPLICABLE (calc) 6-22 SODIUM 142 mmol/L 135-146 POTASSIUM 4.4 mmol/L 3.5-5.3 CHLORIDE 107 mmol/L 98-110 CARBON DIOXIDE 25 mmol/L 20-32 CALCIUM 8.8 mg/dL 8.6-10.2 PROTEIN, TOTAL 6.6 g/dL 6.1-8.1 ALBUMIN 3.9 g/dL 3.6-5.1 GLOBULIN 2.7 g/dL (calc) 1.9-3.7 ALBUMIN/GLOBULIN RATIO 1.4 (calc) 1.0-2. 5 BILIRUBIN, TOTAL 0.3 mg/dL 0.2-1.2 ALKALINE PHOSPHATASE 58 U/L 33-115 AST 32 U/L 10-30 ALT 20 U/L 6-29 Complete urinalysis with reflex to cultu re - 01/26/19 20:00 Urine color determination YELLOW NRG Urine clarity determination SL CLOUDY N RG Urine pH measurement by test strip 5 5-9 Specific gravity of urine by test strip 1.020 1.016-1.022 Urine protein assay by test strip, semi-quantitative 1+ NEGATIVE Urine glucose detection by automated test strip NE GATIVE NEGATIVE Erythrocytes detection in urine sediment by light micr oscopy NEGATIVE NEGATIVE Urine ketones detection by automated test strip NE GATIVE NEGATIVE Urine nitrite detection by test strip NEGATIVE NEGATIVE Urine total bilirubin detection by test strip NEGA TIVE NEGATIVE Urine urobilinogen measurement by automated test strip (mass/volume) NORMAL NORMAL Urine leukocyte esterase detection by dipstick NEG ATIVE NEGATIVE Automated urine sediment erythrocyte cou nt by microscopy (number/high power field) NONE NRG Automated urine sediment leukocyte count by microscopy (number/high power field) [HPF] NRG Bacteria detection in urine sediment by light microsco py MODERATE NRG Squamous epithelial cells detection in u rine sediment by light microscopy 10-25 NRG Crystals detection in urine sediment by light microsco py NONE NRG Casts detection in urine sediment by light microscopy NONE NRG Mucus detection in urine sediment by light microscopy SMALL NRG Complete urinalysis with reflex to culture YES NRG Bacterial urine culture - 01/26/19 20:00 Bacterial urine culture 3 OR MORE NRG COLONY COUNT <10,000 NRG FTX;REPORTABLE SUGGESTING PROBABLE COLLECTION NRG FREE TEXT ENTRY 2 CONTAMINATION WITH SKIN RISHI NRG FREE TEXT ENTRY 3 NO SUSCEPTIBILITY PERFORMED NRG Complete blood count (CBC) with automate d white blood cell (WBC) differential - 01/26/19 20:57 Blood leukocytes automated count (number/volume) 10.2 10*3/uL 4.3-11.0 Blood erythrocytes automated count (number/volume) 4.72 10*6/uL 4.35-5.85 Venous blood hemoglobin measurement (mass/volume) 12.2 g/dL 11.5-16.0 Blood hematocrit (volume fraction) 38 % 35-52 Automated erythrocyte mean corpuscular volume 81 [ foz_us] 80-99 Automated erythrocyte mean corpuscular h emoglobin (mass per erythrocyte) 26 pg 25-34 Automated erythrocyte mean corpuscular h emoglobin concentration measurement (mass/volume) 32 g/dL 32-36 Automated erythrocyte distribution width ratio 14. 9 % 10.0- 14.5 Automated blood platelet count (count/volume) 291 10*3/uL 130-400 Automated blood platelet mean volume measurement 9.0 [foz_us] 7.4-10.4 Automated blood neutrophils/100 leukocytes 65 % 42-75 Automated blood lymphocytes/100 leukocytes 28 % 12-44 Blood monocytes/100 leukocytes 5 % 0-12 Automated blood eosinophils/100 leukocytes 3 % 0-10 Automated blood basophils/100 leukocytes 0 % 0-10 Blood neutrophils automated count (number/volume) 6.7 10*3 1.8-7.8 Blood lymphocytes automated count (number/volume) 2.8 10*3 1.0-4.0 Blood monocytes automated count (number/volume) 0. 5 10*3 0.0-1.0 Automated eosinophil count 0.3 10*3/uL 0 .0-0.3 Automated blood basophil count (count/volume) 0.0 10*3/uL 0.0-0.1 Streptococcus pyogenes antigen detection - 01/26/19 20:57 Streptococcus pyogenes antigen detection NEGATIVE NEGATIVE Comprehensive metabolic panel - 01/26/19 20:57 Serum or plasma sodium measurement (moles/volume) 140 mmol/L 135-145 Serum or plasma potassium measurement (moles/volume) 3.9 mmol/L 3.6-5.0 Serum or plasma chloride measurement (moles/volume) 106 mmol/L 98-107 Carbon dioxide 21 mmol/L 21-32 Serum or plasma anion gap determination (moles/volume) 13 mmol/L 5-14 Serum or plasma urea nitrogen measurement (mass/volume ) 14 mg/dL 7-18 Serum or plasma creatinine measurement (mass/volume) 0.92 mg/dL 0.60-1.30 Serum or plasma urea nitrogen/creatinine mass ratio 15 NRG Serum or plasma creatinine measurement w ith calculation of estimated glomerular filtration rate > NRG Serum or plasma glucose measurement (mass/volume) 90 mg/dL 70-105 Serum or plasma calcium measurement (mass/volume) 9.7 mg/dL 8.5-10.1 Serum or plasma total bilirubin measurement (mass/volu me) 0.3 mg/dL 0.1-1.0 Serum or plasma alkaline phosphatase allyson surement (enzymatic activity/volume) 78 U/L 40-136 Serum or plasma aspartate aminotransfera se measurement (enzymatic activity/volume) 44 U/L 5-34 Serum or plasma alanine aminotransferase measurement (enzymatic activity/volume) 31 U/L 0-55 Serum or plasma protein measurement (mass/volume) 7.9 g/dL 6.4-8.2 Serum or plasma albumin measurement (mass/volume) 4.1 g/dL 3.2-4.5 CALCIUM CORRECTED 9.6 mg/dL 8.5-10.1 Lipase - 01/26/19 20:57 Lipase 41 U/L 8-78 Bacterial throat culture - 01/26/19 20:5 7 Bacterial throat culture NBS NRG Urine drug screening test - 02/11/19 17: 30 Urine phencyclidine detection by screening method NEGATIVE NEGATIVE Urine benzodiazepines detection by screening method NEGATIVE NEGATIVE Urine cocaine detection NEGATIVE NEGATI VE Urine amphetamines detection by screening method N EGATIVE NEGATIVE Urine methamphetamine detection by screening method NEGATIVE NEGATIVE Urine cannabinoids detection by screening method N EGATIVE NEGATIVE Urine opiates detection by screening method NEGATI VE NEGATIVE Urine barbiturates detection NEGATIVE N EGATIVE Screening urine tricyclic antidepressants detection NEGATIVE NEGATIVE Urine methadone detection by screening method NEGA TIVE NEGATIVE Urine oxycodone detection NEGATIVE NEGA TIVE Urine propoxyphene detection NEGATIVE N EGATIVE Complete urinalysis with reflex to cultu re - 02/11/19 17:50 Urine color determination YELLOW NRG Urine clarity determination SLIGHTLY CLOUDY NRG Urine pH measurement by test strip 5 5-9 Specific gravity of urine by test strip 1.025 1.016-1.022 Urine protein assay by test strip, semi-quantitative 1+ NEGATIVE Urine glucose detection by automated test strip NE GATIVE NEGATIVE Erythrocytes detection in urine sediment by light micr oscopy NEGATIVE NEGATIVE Urine ketones detection by automated test strip NE GATIVE NEGATIVE Urine nitrite detection by test strip NEGATIVE NEGATIVE Urine total bilirubin detection by test strip NEGA TIVE NEGATIVE Urine urobilinogen measurement by automated test strip (mass/volume) NORMAL NORMAL Urine leukocyte esterase detection by dipstick NEG ATIVE NEGATIVE Automated urine sediment erythrocyte cou nt by microscopy (number/high power field) NONE NRG Automated urine sediment leukocyte count by microscopy (number/high power field) NONE NRG Bacteria detection in urine sediment by light microsco py MODERATE NRG Squamous epithelial cells detection in u rine sediment by light microscopy 10-25 NRG Crystals detection in urine sediment by light microsco py NONE NRG Casts detection in urine sediment by light microscopy NONE NRG Mucus detection in urine sediment by light microscopy NEGATIVE NRG Complete urinalysis with reflex to culture NO NRG CMP - 02/18/19 12:08 GLUCOSE 88 mg/dL 65-99 UREA NITROGEN (BUN) 18 mg/dL 7-25 CREATININE 0.92 mg/dL 0.50-1.10 eGFR NON-AFR. [place] 81 mL/min/1.73m2 > OR = 60 eGFR 94 mL/min/1.73m2 > OR = 60 BUN/CREATININE RATIO NOT APPLICABLE (calc) 6-22 SODIUM 142 mmol/L 135-146 POTASSIUM 4.6 mmol/L 3.5-5.3 CHLORIDE 107 mmol/L 98-110 CARBON DIOXIDE 27 mmol/L 20-32 CALCIUM 9.4 mg/dL 8.6-10.2 PROTEIN, TOTAL 7.2 g/dL 6.1-8.1 ALBUMIN 4.2 g/dL 3.6-5.1 GLOBULIN 3.0 g/dL (calc) 1.9-3.7 ALBUMIN/GLOBULIN RATIO 1.4 (calc) 1.0-2. 5 BILIRUBIN, TOTAL 0.3 mg/dL 0.2-1.2 ALKALINE PHOSPHATASE 60 U/L 33-115 AST 46 U/L 10-30 ALT 25 U/L 6-29 CULTURE, SPUTUM - 02/19/19 09:30 CULTURE, SPUTUM/LOWER RESPIRATORY SEE NOTE NRG Complete urinalysis with reflex to cultu re - 03/06/19 20:06 Urine color determination YELLOW NRG Urine clarity determination CLEAR NR G Urine pH measurement by test strip 5 5-9 Specific gravity of urine by test strip 1.025 1.016-1.022 Urine protein assay by test strip, semi-quantitative 1+ NEGATIVE Urine glucose detection by automated test strip NE GATIVE NEGATIVE Erythrocytes detection in urine sediment by light micr oscopy NEGATIVE NEGATIVE Urine ketones detection by automated test strip NE GATIVE NEGATIVE Urine nitrite detection by test strip NEGATIVE NEGATIVE Urine total bilirubin detection by test strip NEGA TIVE NEGATIVE Urine urobilinogen measurement by automated test strip (mass/volume) NORMAL NORMAL Urine leukocyte esterase detection by dipstick NEG ATIVE NEGATIVE Automated urine sediment erythrocyte cou nt by microscopy (number/high power field) NONE NRG Automated urine sediment leukocyte count by microscopy (number/high power field) RARE NRG Bacteria detection in urine sediment by light microsco py FEW NRG Squamous epithelial cells detection in u rine sediment by light microscopy 0-2 NRG Crystals detection in urine sediment by light microsco py NONE NRG Casts detection in urine sediment by light microscopy NONE NRG Mucus detection in urine sediment by light microscopy NEGATIVE NRG Complete urinalysis with reflex to culture NO NRG Complete blood count (CBC) with automate d white blood cell (WBC) differential - 03/06/19 20:15 Blood leukocytes automated count (number/volume) 10.0 10*3/uL 4.3-11.0 Blood erythrocytes automated count (number/volume) 4.54 10*6/uL 4.35-5.85 Venous blood hemoglobin measurement (mass/volume) 11.9 g/dL 11.5-16.0 Blood hematocrit (volume fraction) 37 % 35-52 Automated erythrocyte mean corpuscular volume 82 [ foz_us] 80-99 Automated erythrocyte mean corpuscular h emoglobin (mass per erythrocyte) 26 pg 25-34 Automated erythrocyte mean corpuscular h emoglobin concentration measurement (mass/volume) 32 g/dL 32-36 Automated erythrocyte distribution width ratio 14. 9 % 10.0- 14.5 Automated blood platelet count (count/volume) 263 10*3/uL 130-400 Automated blood platelet mean volume measurement 9.4 [foz_us] 7.4-10.4 Automated blood neutrophils/100 leukocytes 66 % 42-75 Automated blood lymphocytes/100 leukocytes 28 % 12-44 Blood monocytes/100 leukocytes 4 % 0-12 Automated blood eosinophils/100 leukocytes 2 % 0-10 Automated blood basophils/100 leukocytes 0 % 0-10 Blood neutrophils automated count (number/volume) 6.6 10*3 1.8-7.8 Blood lymphocytes automated count (number/volume) 2.7 10*3 1.0-4.0 Blood monocytes automated count (number/volume) 0. 4 10*3 0.0-1.0 Automated eosinophil count 0.2 10*3/uL 0 .0-0.3 Automated blood basophil count (count/volume) 0.0 10*3/uL 0.0-0.1 Comprehensive metabolic panel - 03/06/19 20:15 Serum or plasma sodium measurement (moles/volume) 142 mmol/L 135-145 Serum or plasma potassium measurement (moles/volume) 3.9 mmol/L 3.6-5.0 Serum or plasma chloride measurement (moles/volume) 107 mmol/L 98-107 Carbon dioxide 21 mmol/L 21-32 Serum or plasma anion gap determination (moles/volume) 14 mmol/L 5-14 Serum or plasma urea nitrogen measurement (mass/volume ) 18 mg/dL 7-18 Serum or plasma creatinine measurement (mass/volume) 1.01 mg/dL 0.60-1.30 Serum or plasma urea nitrogen/creatinine mass ratio 18 NRG Serum or plasma creatinine measurement w ith calculation of estimated glomerular filtration rate > NRG Serum or plasma glucose measurement (mass/volume) 151 mg/dL 70-105 Serum or plasma calcium measurement (mass/volume) 9.2 mg/dL 8.5-10.1 Serum or plasma total bilirubin measurement (mass/volu me) 0.2 mg/dL 0.1-1.0 Serum or plasma alkaline phosphatase allyson surement (enzymatic activity/volume) 61 U/L 40-136 Serum or plasma aspartate aminotransfera se measurement (enzymatic activity/volume) 33 U/L 5-34 Serum or plasma alanine aminotransferase measurement (enzymatic activity/volume) 25 U/L 0-55 Serum or plasma protein measurement (mass/volume) 7.4 g/dL 6.4-8.2 Serum or plasma albumin measurement (mass/volume) 4.1 g/dL 3.2-4.5 CALCIUM CORRECTED 9.1 mg/dL 8.5-10.1 Lipase - 03/06/19 20:15 Lipase 43 U/L 8-78 Complete urinalysis with reflex to cultu re - 03/22/19 07:20 Urine color determination YELLOW NRG Urine clarity determination CLEAR NR G Urine pH measurement by test strip 6 5-9 Specific gravity of urine by test strip 1.020 1.016-1.022 Urine protein assay by test strip, semi-quantitative 1+ NEGATIVE Urine glucose detection by automated test strip NE GATIVE NEGATIVE Erythrocytes detection in urine sediment by light micr oscopy NEGATIVE NEGATIVE Urine ketones detection by automated test strip NE GATIVE NEGATIVE Urine nitrite detection by test strip NEGATIVE NEGATIVE Urine total bilirubin detection by test strip NEGA TIVE NEGATIVE Urine urobilinogen measurement by automated test strip (mass/volume) NORMAL NORMAL Urine leukocyte esterase detection by dipstick NEG ATIVE NEGATIVE Automated urine sediment erythrocyte cou nt by microscopy (number/high power field) NONE NRG Automated urine sediment leukocyte count by microscopy (number/high power field) RARE NRG Bacteria detection in urine sediment by light microsco py MODERATE NRG Squamous epithelial cells detection in u rine sediment by light microscopy 2-5 NRG Crystals detection in urine sediment by light microsco py NONE NRG Casts detection in urine sediment by light microscopy NONE NRG Mucus detection in urine sediment by light microscopy NEGATIVE NRG Complete urinalysis with reflex to culture NO NRG Complete blood count (CBC) with automate d white blood cell (WBC) differential - 03/22/19 07:29 Blood leukocytes automated count (number/volume) 7.2 10*3/uL 4.3-11.0 Blood erythrocytes automated count (number/volume) 4.47 10*6/uL 4.35-5.85 Venous blood hemoglobin measurement (mass/volume) 11.6 g/dL 11.5-16.0 Blood hematocrit (volume fraction) 36 % 35-52 Automated erythrocyte mean corpuscular volume 81 [ foz_us] 80-99 Automated erythrocyte mean corpuscular h emoglobin (mass per erythrocyte) 26 pg 25-34 Automated erythrocyte mean corpuscular h emoglobin concentration measurement (mass/volume) 32 g/dL 32-36 Automated erythrocyte distribution width ratio 14. 9 % 10.0- 14.5 Automated blood platelet count (count/volume) 258 10*3/uL 130-400 Automated blood platelet mean volume measurement 9.1 [foz_us] 7.4-10.4 Automated blood neutrophils/100 leukocytes 59 % 42-75 Automated blood lymphocytes/100 leukocytes 32 % 12-44 Blood monocytes/100 leukocytes 6 % 0-12 Automated blood eosinophils/100 leukocytes 3 % 0-10 Automated blood basophils/100 leukocytes 0 % 0-10 Blood neutrophils automated count (number/volume) 4.2 10*3 1.8-7.8 Blood lymphocytes automated count (number/volume) 2.3 10*3 1.0-4.0 Blood monocytes automated count (number/volume) 0. 5 10*3 0.0-1.0 Automated eosinophil count 0.2 10*3/uL 0 .0-0.3 Automated blood basophil count (count/volume) 0.0 10*3/uL 0.0-0.1 Comprehensive metabolic panel - 03/22/19 07:29 Serum or plasma sodium measurement (moles/volume) 144 mmol/L 135-145 Serum or plasma potassium measurement (moles/volume) 4.1 mmol/L 3.6-5.0 Serum or plasma chloride measurement (moles/volume) 108 mmol/L 98-107 Carbon dioxide 24 mmol/L 21-32 Serum or plasma anion gap determination (moles/volume) 12 mmol/L 5-14 Serum or plasma urea nitrogen measurement (mass/volume ) 16 mg/dL 7-18 Serum or plasma creatinine measurement (mass/volume) 0.82 mg/dL 0.60-1.30 Serum or plasma urea nitrogen/creatinine mass ratio 20 NRG Serum or plasma creatinine measurement w ith calculation of estimated glomerular filtration rate > NRG Serum or plasma glucose measurement (mass/volume) 89 mg/dL 70-105 Serum or plasma calcium measurement (mass/volume) 9.0 mg/dL 8.5-10.1 Serum or plasma total bilirubin measurement (mass/volu me) 0.2 mg/dL 0.1-1.0 Serum or plasma alkaline phosphatase allyson surement (enzymatic activity/volume) 66 U/L 40-136 Serum or plasma aspartate aminotransfera se measurement (enzymatic activity/volume) 35 U/L 5-34 Serum or plasma alanine aminotransferase measurement (enzymatic activity/volume) 25 U/L 0-55 Serum or plasma protein measurement (mass/volume) 7.1 g/dL 6.4-8.2 Serum or plasma albumin measurement (mass/volume) 3.8 g/dL 3.2-4.5 CALCIUM CORRECTED 9.2 mg/dL 8.5-10.1 Magnesium - 03/22/19 07:29 Magnesium 2.0 mg/dL 1.6-2.4 Lipase - 03/22/19 07:29 Lipase 43 U/L 8-78 Serum or plasma C reactive protein measu rement (mass/volume) - 03/22/19 07:29 Serum or plasma C reactive protein measurement (mass/v olume) 1.82 mg/dL 0.00-0.50 Complete urinalysis with reflex to cultu re - 04/07/19 11:46 Urine color determination YELLOW NRG Urine clarity determination CLEAR NR G Urine pH measurement by test strip 6.5 5-9 Specific gravity of urine by test strip 1.010 1.016-1.022 Urine protein assay by test strip, semi-quantitative NEGATIVE NEGATIVE Urine glucose detection by automated test strip NE GATIVE NEGATIVE Erythrocytes detection in urine sediment by light micr oscopy NEGATIVE NEGATIVE Urine ketones detection by automated test strip NE GATIVE NEGATIVE Urine nitrite detection by test strip NEGATIVE NEGATIVE Urine total bilirubin detection by test strip NEGA TIVE NEGATIVE Urine urobilinogen measurement by automated test strip (mass/volume) NORMAL NORMAL Urine leukocyte esterase detection by dipstick NEG ATIVE NEGATIVE Automated urine sediment erythrocyte cou nt by microscopy (number/high power field) NONE NRG Automated urine sediment leukocyte count by microscopy (number/high power field) [HPF] NRG Bacteria detection in urine sediment by light microsco py MODERATE NRG Squamous epithelial cells detection in u rine sediment by light microscopy 25-50 NRG Crystals detection in urine sediment by light microsco py NONE NRG Casts detection in urine sediment by light microscopy NONE NRG Mucus detection in urine sediment by light microscopy NEGATIVE NRG Complete urinalysis with reflex to culture YES NRG Bacterial urine culture - 04/07/19 11:46 Bacterial urine culture 3 OR MORE NRG COLONY COUNT >100,000/ML NRG FTX;REPORTABLE GRAM POSITIVE ISOLATES; SUGGESTING NRG FREE TEXT ENTRY 2 PROBABLE COLLECTION CONTAMINATIO N WITH NRG FREE TEXT ENTRY 3 SKIN RISHI. NO SUSCEPTIBILITY PE RFORMED. NRG Complete blood count (CBC) with automate d white blood cell (WBC) differential - 04/07/19 13:05 Blood leukocytes automated count (number/volume) 7.7 10*3/uL 4.3-11.0 Blood erythrocytes automated count (number/volume) 4.66 10*6/uL 4.35-5.85 Venous blood hemoglobin measurement (mass/volume) 12.2 g/dL 11.5-16.0 Blood hematocrit (volume fraction) 38 % 35-52 Automated erythrocyte mean corpuscular volume 82 [ foz_us] 80-99 Automated erythrocyte mean corpuscular h emoglobin (mass per erythrocyte) 26 pg 25-34 Automated erythrocyte mean corpuscular h emoglobin concentration measurement (mass/volume) 32 g/dL 32-36 Automated erythrocyte distribution width ratio 14. 9 % 10.0- 14.5 Automated blood platelet count (count/volume) 252 10*3/uL 130-400 Automated blood platelet mean volume measurement 9.2 [foz_us] 7.4-10.4 Automated blood neutrophils/100 leukocytes 64 % 42-75 Automated blood lymphocytes/100 leukocytes 29 % 12-44 Blood monocytes/100 leukocytes 4 % 0-12 Automated blood eosinophils/100 leukocytes 3 % 0-10 Automated blood basophils/100 leukocytes 0 % 0-10 Blood neutrophils automated count (number/volume) 4.9 10*3 1.8-7.8 Blood lymphocytes automated count (number/volume) 2.3 10*3 1.0-4.0 Blood monocytes automated count (number/volume) 0. 3 10*3 0.0-1.0 Automated eosinophil count 0.2 10*3/uL 0 .0-0.3 Automated blood basophil count (count/volume) 0.0 10*3/uL 0.0-0.1 Complete blood count (CBC) with automate d white blood cell (WBC) differential - 05/12/19 12:30 Blood leukocytes automated count (number/volume) 8.1 10*3/uL 4.3-11.0 Blood erythrocytes automated count (number/volume) 4.87 10*6/uL 4.35-5.85 Venous blood hemoglobin measurement (mass/volume) 12.6 g/dL 11.5-16.0 Blood hematocrit (volume fraction) 39 % 35-52 Automated erythrocyte mean corpuscular volume 81 [ foz_us] 80-99 Automated erythrocyte mean corpuscular h emoglobin (mass per erythrocyte) 26 pg 25-34 Automated erythrocyte mean corpuscular h emoglobin concentration measurement (mass/volume) 32 g/dL 32-36 Automated erythrocyte distribution width ratio 14. 8 % 10.0- 14.5 Automated blood platelet count (count/volume) 253 10*3/uL 130-400 Automated blood platelet mean volume measurement 9.4 [foz_us] 7.4-10.4 Automated blood neutrophils/100 leukocytes 66 % 42-75 Automated blood lymphocytes/100 leukocytes 27 % 12-44 Blood monocytes/100 leukocytes 4 % 0-12 Automated blood eosinophils/100 leukocytes 2 % 0-10 Automated blood basophils/100 leukocytes 0 % 0-10 Blood neutrophils automated count (number/volume) 5.4 10*3 1.8-7.8 Blood lymphocytes automated count (number/volume) 2.2 10*3 1.0-4.0 Blood monocytes automated count (number/volume) 0. 4 10*3 0.0-1.0 Automated eosinophil count 0.2 10*3/uL 0 .0-0.3 Automated blood basophil count (count/volume) 0.0 10*3/uL 0.0-0.1 Comprehensive metabolic panel - 05/12/19 12:30 Serum or plasma sodium measurement (moles/volume) 141 mmol/L 135-145 Serum or plasma potassium measurement (moles/volume) 4.5 mmol/L 3.6-5.0 Serum or plasma chloride measurement (moles/volume) 105 mmol/L 98-107 Carbon dioxide 25 mmol/L 21-32 Serum or plasma anion gap determination (moles/volume) 11 mmol/L 5-14 Serum or plasma urea nitrogen measurement (mass/volume ) 14 mg/dL 7-18 Serum or plasma creatinine measurement (mass/volume) 0.88 mg/dL 0.60-1.30 Serum or plasma urea nitrogen/creatinine mass ratio 16 NRG Serum or plasma creatinine measurement w ith calculation of estimated glomerular filtration rate > NRG Serum or plasma glucose measurement (mass/volume) 132 mg/dL 70-105 Serum or plasma calcium measurement (mass/volume) 9.4 mg/dL 8.5-10.1 Serum or plasma total bilirubin measurement (mass/volu me) 0.2 mg/dL 0.1-1.0 Serum or plasma alkaline phosphatase allyson surement (enzymatic activity/volume) 68 U/L 40-136 Serum or plasma aspartate aminotransfera se measurement (enzymatic activity/volume) 41 U/L 5-34 Serum or plasma alanine aminotransferase measurement (enzymatic activity/volume) 24 U/L 0-55 Serum or plasma protein measurement (mass/volume) 7.4 g/dL 6.4-8.2 Serum or plasma albumin measurement (mass/volume) 4.2 g/dL 3.2-4.5 CALCIUM CORRECTED 9.2 mg/dL 8.5-10.1 Serum or plasma amylase measurement (enz ymatic activity/volume) - 05/12/19 12:30 Serum or plasma amylase measurement (enzymatic activit y/volume) 61 U/L 25-125 Lipase - 05/12/19 12:30 Lipase 52 U/L 8-78 Complete urinalysis with reflex to cultu re - 05/12/19 13:53 Urine color determination YELLOW NRG Urine clarity determination CLEAR NR G Urine pH measurement by test strip 7.0 5-9 Specific gravity of urine by test strip 1.010 1.016-1.022 Urine protein assay by test strip, semi-quantitative NEGATIVE NEGATIVE Urine glucose detection by automated test strip NE GATIVE NEGATIVE Erythrocytes detection in urine sediment by light micr oscopy NEGATIVE NEGATIVE Urine ketones detection by automated test strip NE GATIVE NEGATIVE Urine nitrite detection by test strip NEGATIVE NEGATIVE Urine total bilirubin detection by test strip NEGA TIVE NEGATIVE Urine urobilinogen measurement by automated test strip (mass/volume) 0.2 mg/dL < = 1.0 Urine leukocyte esterase detection by dipstick NEG ATIVE NEGATIVE Automated urine sediment erythrocyte cou nt by microscopy (number/high power field) NONE NRG Automated urine sediment leukocyte count by microscopy (number/high power field) RARE NRG Bacteria detection in urine sediment by light microsco py FEW NRG Squamous epithelial cells detection in u rine sediment by light microscopy 2-5 NRG Crystals detection in urine sediment by light microsco py NONE NRG Casts detection in urine sediment by light microscopy NONE NRG Mucus detection in urine sediment by light microscopy NEGATIVE NRG Complete urinalysis with reflex to culture NO NRG [id number] - 05/28/19 12:21 Blood or tissue HLA-B27 detection by flow cytometry Negative NRG RA FACTOR (RHEUMATOID FACTOR) - 05/28/19 12:21 Serum or plasma rheumatoid factor measurement (units/v olume) < [iU]/mL 0-29 Interpretation of rheumatoid factor assay Negative Negative Complete urinalysis with reflex to cultu re - 05/29/19 09:50 Urine color determination YELLOW NRG Urine clarity determination CLEAR NR G Urine pH measurement by test strip 5.5 5-9 Specific gravity of urine by test strip >= 1.016-1.022 Urine protein assay by test strip, semi-quantitative NEGATIVE NEGATIVE Urine glucose detection by automated test strip NE GATIVE NEGATIVE Erythrocytes detection in urine sediment by light micr oscopy NEGATIVE NEGATIVE Urine ketones detection by automated test strip NE GATIVE NEGATIVE Urine nitrite detection by test strip NEGATIVE NEGATIVE Urine total bilirubin detection by test strip NEGA TIVE NEGATIVE Urine urobilinogen measurement by automated test strip (mass/volume) 0.2 mg/dL < = 1.0 Urine leukocyte esterase detection by dipstick NEG ATIVE NEGATIVE Automated urine sediment erythrocyte cou nt by microscopy (number/high power field) NONE NRG Automated urine sediment leukocyte count by microscopy (number/high power field) [HPF] NRG Bacteria detection in urine sediment by light microsco py FEW NRG Squamous epithelial cells detection in u rine sediment by light microscopy 5-10 NRG Crystals detection in urine sediment by light microsco py NONE NRG Casts detection in urine sediment by light microscopy NONE NRG Mucus detection in urine sediment by light microscopy NEGATIVE NRG Complete urinalysis with reflex to culture NO NRG Complete blood count (CBC) with automate d white blood cell (WBC) differential - 05/29/19 10:45 Blood leukocytes automated count (number/volume) 7.8 10*3/uL 4.3-11.0 Blood erythrocytes automated count (number/volume) 4.79 10*6/uL 4.35-5.85 Venous blood hemoglobin measurement (mass/volume) 12.6 g/dL 11.5-16.0 Blood hematocrit (volume fraction) 38 % 35-52 Automated erythrocyte mean corpuscular volume 80 [ foz_us] 80-99 Automated erythrocyte mean corpuscular h emoglobin (mass per erythrocyte) 26 pg 25-34 Automated erythrocyte mean corpuscular h emoglobin concentration measurement (mass/volume) 33 g/dL 32-36 Automated erythrocyte distribution width ratio 14. 5 % 10.0- 14.5 Automated blood platelet count (count/volume) 247 10*3/uL 130-400 Automated blood platelet mean volume measurement 9.1 [foz_us] 7.4-10.4 Automated blood neutrophils/100 leukocytes 67 % 42-75 Automated blood lymphocytes/100 leukocytes 26 % 12-44 Blood monocytes/100 leukocytes 5 % 0-12 Automated blood eosinophils/100 leukocytes 2 % 0-10 Automated blood basophils/100 leukocytes 0 % 0-10 Blood neutrophils automated count (number/volume) 5.3 10*3 1.8-7.8 Blood lymphocytes automated count (number/volume) 2.0 10*3 1.0-4.0 Blood monocytes automated count (number/volume) 0. 4 10*3 0.0-1.0 Automated eosinophil count 0.2 10*3/uL 0 .0-0.3 Automated blood basophil count (count/volume) 0.0 10*3/uL 0.0-0.1 Comprehensive metabolic panel - 05/29/19 10:45 Serum or plasma sodium measurement (moles/volume) 139 mmol/L 135-145 Serum or plasma potassium measurement (moles/volume) 4.3 mmol/L 3.6-5.0 Serum or plasma chloride measurement (moles/volume) 106 mmol/L 98-107 Carbon dioxide 23 mmol/L 21-32 Serum or plasma anion gap determination (moles/volume) 10 mmol/L 5-14 Serum or plasma urea nitrogen measurement (mass/volume ) 17 mg/dL 7-18 Serum or plasma creatinine measurement (mass/volume) 0.82 mg/dL 0.60-1.30 Serum or plasma urea nitrogen/creatinine mass ratio 21 NRG Serum or plasma creatinine measurement w ith calculation of estimated glomerular filtration rate > NRG Serum or plasma glucose measurement (mass/volume) 97 mg/dL 70-105 Serum or plasma calcium measurement (mass/volume) 9.0 mg/dL 8.5-10.1 Serum or plasma total bilirubin measurement (mass/volu me) 0.3 mg/dL 0.1-1.0 Serum or plasma alkaline phosphatase allyson surement (enzymatic activity/volume) 67 U/L 40-136 Serum or plasma aspartate aminotransfera se measurement (enzymatic activity/volume) 46 U/L 5-34 Serum or plasma alanine aminotransferase measurement (enzymatic activity/volume) 20 U/L 0-55 Serum or plasma protein measurement (mass/volume) 7.4 g/dL 6.4-8.2 Serum or plasma albumin measurement (mass/volume) 4.0 g/dL 3.2-4.5 CALCIUM CORRECTED 9.0 mg/dL 8.5-10.1 Lipase - 05/29/19 10:45 Lipase 82 U/L 8-78 Complete urinalysis with reflex to cultu re - 06/14/19 23:11 Urine color determination YELLOW NRG Urine clarity determination CLEAR NR G Urine pH measurement by test strip 7.0 5-9 Specific gravity of urine by test strip 1.020 1.016-1.022 Urine protein assay by test strip, semi-quantitative NEGATIVE NEGATIVE Urine glucose detection by automated test strip NE GATIVE NEGATIVE Erythrocytes detection in urine sediment by light micr oscopy NEGATIVE NEGATIVE Urine ketones detection by automated test strip NE GATIVE NEGATIVE Urine nitrite detection by test strip NEGATIVE NEGATIVE Urine total bilirubin detection by test strip NEGA TIVE NEGATIVE Urine urobilinogen measurement by automated test strip (mass/volume) 0.2 mg/dL < = 1.0 Urine leukocyte esterase detection by dipstick NEG ATIVE NEGATIVE Automated urine sediment erythrocyte cou nt by microscopy (number/high power field) NONE NRG Automated urine sediment leukocyte count by microscopy (number/high power field) [HPF] NRG Bacteria detection in urine sediment by light microsco py FEW NRG Squamous epithelial cells detection in u rine sediment by light microscopy 10-25 NRG Crystals detection in urine sediment by light microsco py NONE NRG Casts detection in urine sediment by light microscopy NONE NRG Mucus detection in urine sediment by light microscopy NEGATIVE NRG Complete urinalysis with reflex to culture YES NRG Bacterial urine culture - 06/14/19 23:11 Bacterial urine culture 3 OR MORE NRG COLONY COUNT >100,000/ML NRG FTX;REPORTABLE GRAM POSITIVES, SUGGESTING PROBABLE NRG FREE TEXT ENTRY 2 COLLECTION CONTAMINATION WITH SK IN FLROA NRG FREE TEXT ENTRY 3 NO SUSCEPTIBILITY PERFORMED NRG Complete urinalysis with reflex to cultu re - 07/04/19 23:08 Urine color determination YELLOW NRG Urine clarity determination SL CLOUDY N RG Urine pH measurement by test strip 6.5 5-9 Specific gravity of urine by test strip 1.025 1.016-1.022 Urine protein assay by test strip, semi-quantitative NEGATIVE NEGATIVE Urine glucose detection by automated test strip NE GATIVE NEGATIVE Erythrocytes detection in urine sediment by light micr oscopy NEGATIVE NEGATIVE Urine ketones detection by automated test strip NE GATIVE NEGATIVE Urine nitrite detection by test strip NEGATIVE NEGATIVE Urine total bilirubin detection by test strip NEGA TIVE NEGATIVE Urine urobilinogen measurement by automated test strip (mass/volume) 0.2 mg/dL < = 1.0 Urine leukocyte esterase detection by dipstick NEG ATIVE NEGATIVE Automated urine sediment erythrocyte cou nt by microscopy (number/high power field) NONE NRG Automated urine sediment leukocyte count by microscopy (number/high power field) [HPF] NRG Bacteria detection in urine sediment by light microsco py MODERATE NRG Squamous epithelial cells detection in u rine sediment by light microscopy 10-25 NRG Crystals detection in urine sediment by light microsco py NONE NRG Casts detection in urine sediment by light microscopy NONE NRG Mucus detection in urine sediment by light microscopy NEGATIVE NRG Complete urinalysis with reflex to culture YES NRG Bacterial urine culture - 07/04/19 23:08 Bacterial urine culture 3 OR MORE NRG COLONY COUNT 30,000 CFU/ML NRG FTX;REPORTABLE SUGGESTING PROBABLE COLLECTION NRG FREE TEXT ENTRY 2 CONTAMINATION WITH SKIN RISHI NRG FREE TEXT ENTRY 3 NO SUSCEPTIBILITY PERFORMED NRG Complete blood count (CBC) with automate d white blood cell (WBC) differential - 07/04/19 23:22 Blood leukocytes automated count (number/volume) 8.9 10*3/uL 4.3-11.0 Blood erythrocytes automated count (number/volume) 4.79 10*6/uL 4.35-5.85 Venous blood hemoglobin measurement (mass/volume) 12.4 g/dL 11.5-16.0 Blood hematocrit (volume fraction) 39 % 35-52 Automated erythrocyte mean corpuscular volume 81 [ foz_us] 80-99 Automated erythrocyte mean corpuscular h emoglobin (mass per erythrocyte) 26 pg 25-34 Automated erythrocyte mean corpuscular h emoglobin concentration measurement (mass/volume) 32 g/dL 32-36 Automated erythrocyte distribution width ratio 14. 6 % 10.0- 14.5 Automated blood platelet count (count/volume) 300 10*3/uL 130-400 Automated blood platelet mean volume measurement 9.5 [foz_us] 7.4-10.4 Automated blood neutrophils/100 leukocytes 56 % 42-75 Automated blood lymphocytes/100 leukocytes 35 % 12-44 Blood monocytes/100 leukocytes 6 % 0-12 Automated blood eosinophils/100 leukocytes 2 % 0-10 Automated blood basophils/100 leukocytes 0 % 0-10 Blood neutrophils automated count (number/volume) 5.0 10*3 1.8-7.8 Blood lymphocytes automated count (number/volume) 3.1 10*3 1.0-4.0 Blood monocytes automated count (number/volume) 0. 6 10*3 0.0-1.0 Automated eosinophil count 0.2 10*3/uL 0 .0-0.3 Automated blood basophil count (count/volume) 0.0 10*3/uL 0.0-0.1 Comprehensive metabolic panel - 07/04/19 23:22 Serum or plasma sodium measurement (moles/volume) 141 mmol/L 135-145 Serum or plasma potassium measurement (moles/volume) 4.0 mmol/L 3.6-5.0 Serum or plasma chloride measurement (moles/volume) 107 mmol/L 98-107 Carbon dioxide 21 mmol/L 21-32 Serum or plasma anion gap determination (moles/volume) 13 mmol/L 5-14 Serum or plasma urea nitrogen measurement (mass/volume ) 14 mg/dL 7-18 Serum or plasma creatinine measurement (mass/volume) 0.99 mg/dL 0.60-1.30 Serum or plasma urea nitrogen/creatinine mass ratio 14 NRG Serum or plasma creatinine measurement w ith calculation of estimated glomerular filtration rate > NRG Serum or plasma glucose measurement (mass/volume) 83 mg/dL 70-105 Serum or plasma calcium measurement (mass/volume) 9.3 mg/dL 8.5-10.1 Serum or plasma total bilirubin measurement (mass/volu me) 0.2 mg/dL 0.1-1.0 Serum or plasma alkaline phosphatase allyson surement (enzymatic activity/volume) 64 U/L 40-136 Serum or plasma aspartate aminotransfera se measurement (enzymatic activity/volume) 36 U/L 5-34 Serum or plasma alanine aminotransferase measurement (enzymatic activity/volume) 30 U/L 0-55 Serum or plasma protein measurement (mass/volume) 8.1 g/dL 6.4-8.2 Serum or plasma albumin measurement (mass/volume) 4.5 g/dL 3.2-4.5 CALCIUM CORRECTED 8.9 mg/dL 8.5-10.1 Serum or plasma C reactive protein measu rement (mass/volume) - 07/04/19 23:22 Serum or plasma C reactive protein measurement (mass/v olume) 1.24 mg/dL 0.00-0.50 Lipase - 07/04/19 23:22 Lipase 103 U/L 8-78 Influenza virus A and B antigen detectio n - 07/04/19 23:47 FLU RESULT NEGATIVE FOR INFLUENZA A AND B ANTIGENS BY [facility] Complete blood count (CBC) with automate d white blood cell (WBC) differential - 07/08/19 11:30 Blood leukocytes automated count (number/volume) 9.3 10*3/uL 4.3-11.0 Blood erythrocytes automated count (number/volume) 4.85 10*6/uL 4.35-5.85 Venous blood hemoglobin measurement (mass/volume) 12.5 g/dL 11.5-16.0 Blood hematocrit (volume fraction) 39 % 35-52 Automated erythrocyte mean corpuscular volume 81 [ foz_us] 80-99 Automated erythrocyte mean corpuscular h emoglobin (mass per erythrocyte) 26 pg 25-34 Automated erythrocyte mean corpuscular h emoglobin concentration measurement (mass/volume) 32 g/dL 32-36 Automated erythrocyte distribution width ratio 14. 7 % 10.0- 14.5 Automated blood platelet count (count/volume) 266 10*3/uL 130-400 Automated blood platelet mean volume measurement 9.3 [foz_us] 7.4-10.4 Automated blood neutrophils/100 leukocytes 68 % 42-75 Automated blood lymphocytes/100 leukocytes 26 % 12-44 Blood monocytes/100 leukocytes 4 % 0-12 Automated blood eosinophils/100 leukocytes 2 % 0-10 Automated blood basophils/100 leukocytes 0 % 0-10 Blood neutrophils automated count (number/volume) 6.3 10*3 1.8-7.8 Blood lymphocytes automated count (number/volume) 2.4 10*3 1.0-4.0 Blood monocytes automated count (number/volume) 0. 3 10*3 0.0-1.0 Automated eosinophil count 0.2 10*3/uL 0 .0-0.3 Automated blood basophil count (count/volume) 0.0 10*3/uL 0.0-0.1 Comprehensive metabolic panel - 07/08/19 11:30 Serum or plasma sodium measurement (moles/volume) 139 mmol/L 135-145 Serum or plasma potassium measurement (moles/volume) 4.1 mmol/L 3.6-5.0 Serum or plasma chloride measurement (moles/volume) 106 mmol/L 98-107 Carbon dioxide 20 mmol/L 21-32 Serum or plasma anion gap determination (moles/volume) 13 mmol/L 5-14 Serum or plasma urea nitrogen measurement (mass/volume ) 16 mg/dL 7-18 Serum or plasma creatinine measurement (mass/volume) 0.99 mg/dL 0.60-1.30 Serum or plasma urea nitrogen/creatinine mass ratio 16 NRG Serum or plasma creatinine measurement w ith calculation of estimated glomerular filtration rate > NRG Serum or plasma glucose measurement (mass/volume) 96 mg/dL 70-105 Serum or plasma calcium measurement (mass/volume) 9.3 mg/dL 8.5-10.1 Serum or plasma total bilirubin measurement (mass/volu me) 0.3 mg/dL 0.1-1.0 Serum or plasma alkaline phosphatase allyson surement (enzymatic activity/volume) 72 U/L 40-136 Serum or plasma aspartate aminotransfera se measurement (enzymatic activity/volume) 30 U/L 5-34 Serum or plasma alanine aminotransferase measurement (enzymatic activity/volume) 27 U/L 0-55 Serum or plasma protein measurement (mass/volume) 7.5 g/dL 6.4-8.2 Serum or plasma albumin measurement (mass/volume) 4.2 g/dL 3.2-4.5 CALCIUM CORRECTED 9.1 mg/dL 8.5-10.1 Lipase - 07/08/19 11:30 Lipase 112 U/L 8-78 VITAMIN D, 25-H - 07/23/19 13:03 VITAMIN D,25-OH,TOTAL,IA 19 ng/mL 30-10 0 VITAMIN B12 - 07/23/19 13:06 VITAMIN B12 649 pg/mL 200-1100 Urine drug screening test - 08/12/19 13: 38 Urine phencyclidine detection by screening method NEGATIVE NEGATIVE Urine benzodiazepines detection by screening method NEGATIVE NEGATIVE Urine cocaine detection NEGATIVE NEGATI VE Urine amphetamines detection by screening method N EGATIVE NEGATIVE Urine methamphetamine detection by screening method NEGATIVE NEGATIVE Urine cannabinoids detection by screening method N EGATIVE NEGATIVE Urine opiates detection by screening method NEGATI VE NEGATIVE Urine barbiturates detection NEGATIVE N EGATIVE Screening urine tricyclic antidepressants detection NEGATIVE NEGATIVE Urine methadone detection by screening method NEGA TIVE NEGATIVE Urine oxycodone detection NEGATIVE NEGA TIVE Urine propoxyphene detection NEGATIVE N EGATIVE Complete urinalysis with reflex to cultu re - 08/12/19 13:38 Urine color determination YELLOW NRG Urine clarity determination SL CLOUDY N RG Urine pH measurement by test strip 5.5 5-9 Specific gravity of urine by test strip 1.025 1.016-1.022 Urine protein assay by test strip, semi-quantitative NEGATIVE NEGATIVE Urine glucose detection by automated test strip NE GATIVE NEGATIVE Erythrocytes detection in urine sediment by light micr oscopy NEGATIVE NEGATIVE Urine ketones detection by automated test strip NE GATIVE NEGATIVE Urine nitrite detection by test strip NEGATIVE NEGATIVE Urine total bilirubin detection by test strip NEGA TIVE NEGATIVE Urine urobilinogen measurement by automated test strip (mass/volume) 0.2 mg/dL < = 1.0 Urine leukocyte esterase detection by dipstick NEG ATIVE NEGATIVE Automated urine sediment erythrocyte cou nt by microscopy (number/high power field) RARE NRG Automated urine sediment leukocyte count by microscopy (number/high power field) [HPF] NRG Bacteria detection in urine sediment by light microsco py MODERATE NRG Squamous epithelial cells detection in u rine sediment by light microscopy 10-25 NRG Crystals detection in urine sediment by light microsco py NONE NRG Casts detection in urine sediment by light microscopy NONE NRG Mucus detection in urine sediment by light microscopy NEGATIVE NRG Complete urinalysis with reflex to culture NO NRG Complete blood count (CBC) with automate d white blood cell (WBC) differential - 08/12/19 13:45 Blood leukocytes automated count (number/volume) 7.0 10*3/uL 4.3-11.0 Blood erythrocytes automated count (number/volume) 4.91 10*6/uL 4.35-5.85 Venous blood hemoglobin measurement (mass/volume) 12.7 g/dL 11.5-16.0 Blood hematocrit (volume fraction) 40 % 35-52 Automated erythrocyte mean corpuscular volume 81 [ foz_us] 80-99 Automated erythrocyte mean corpuscular h emoglobin (mass per erythrocyte) 26 pg 25-34 Automated erythrocyte mean corpuscular h emoglobin concentration measurement (mass/volume) 32 g/dL 32-36 Automated erythrocyte distribution width ratio 15. 0 % 10.0- 14.5 Automated blood platelet count (count/volume) 256 10*3/uL 130-400 Automated blood platelet mean volume measurement 9.0 [foz_us] 7.4-10.4 Automated blood neutrophils/100 leukocytes 61 % 42-75 Automated blood lymphocytes/100 leukocytes 31 % 12-44 Blood monocytes/100 leukocytes 5 % 0-12 Automated blood eosinophils/100 leukocytes 2 % 0-10 Automated blood basophils/100 leukocytes 0 % 0-10 Blood neutrophils automated count (number/volume) 4.3 10*3 1.8-7.8 Blood lymphocytes automated count (number/volume) 2.2 10*3 1.0-4.0 Blood monocytes automated count (number/volume) 0. 4 10*3 0.0-1.0 Automated eosinophil count 0.2 10*3/uL 0 .0-0.3 Automated blood basophil count (count/volume) 0.0 10*3/uL 0.0-0.1 Comprehensive metabolic panel - 08/12/19 13:45 Serum or plasma sodium measurement (moles/volume) 139 mmol/L 135-145 Serum or plasma potassium measurement (moles/volume) 4.1 mmol/L 3.6-5.0 Serum or plasma chloride measurement (moles/volume) 105 mmol/L 98-107 Carbon dioxide 24 mmol/L 21-32 Serum or plasma anion gap determination (moles/volume) 10 mmol/L 5-14 Serum or plasma urea nitrogen measurement (mass/volume ) 15 mg/dL 7-18 Serum or plasma creatinine measurement (mass/volume) 0.90 mg/dL 0.60-1.30 Serum or plasma urea nitrogen/creatinine mass ratio 17 NRG Serum or plasma creatinine measurement w ith calculation of estimated glomerular filtration rate > NRG Serum or plasma glucose measurement (mass/volume) 88 mg/dL 70-105 Serum or plasma calcium measurement (mass/volume) 9.4 mg/dL 8.5-10.1 Serum or plasma total bilirubin measurement (mass/volu me) 0.3 mg/dL 0.1-1.0 Serum or plasma alkaline phosphatase allyson surement (enzymatic activity/volume) 68 U/L 40-136 Serum or plasma aspartate aminotransfera se measurement (enzymatic activity/volume) 50 U/L 5-34 Serum or plasma alanine aminotransferase measurement (enzymatic activity/volume) 31 U/L 0-55 Serum or plasma protein measurement (mass/volume) 7.7 g/dL 6.4-8.2 Serum or plasma albumin measurement (mass/volume) 4.1 g/dL 3.2-4.5 CALCIUM CORRECTED 9.3 mg/dL 8.5-10.1 Magnesium - 08/12/19 13:45 Magnesium 2.0 mg/dL 1.6-2.4 Serum or plasma amylase measurement (enz ymatic activity/volume) - 08/12/19 13:45 Serum or plasma amylase measurement (enzymatic activit y/volume) 68 U/L 25-125 Lipase - 08/12/19 13:45 Lipase 43 U/L 8-78 Serum or plasma acetaminophen measuremen t (mass/volume) - 08/12/19 13:45 Serum or plasma acetaminophen measurement (mass/volume ) < ug/mL 10-30 Serum or plasma ethanol measurement (mas s/volume) - 08/12/19 13:45 Serum or plasma ethanol measurement (mass/volume) < mg/dL <10 CMP - 10/08/19 14:10 GLUCOSE 87 mg/dL 65-139 UREA NITROGEN (BUN) 15 mg/dL 7-25 CREATININE 0.85 mg/dL 0.50-1.10 eGFR NON-AFR. [place] 89 mL/min/1.73m2 > OR = 60 eGFR 103 mL/min/1.73m2 > OR = 60 BUN/CREATININE RATIO NOT APPLICABLE (calc) 6-22 SODIUM 140 mmol/L 135-146 POTASSIUM 4.2 mmol/L 3.5-5.3 CHLORIDE 106 mmol/L 98-110 CARBON DIOXIDE 25 mmol/L 20-32 CALCIUM 9.2 mg/dL 8.6-10.2 PROTEIN, TOTAL 7.3 g/dL 6.1-8.1 ALBUMIN 4.3 g/dL 3.6-5.1 GLOBULIN 3.0 g/dL (calc) 1.9-3.7 ALBUMIN/GLOBULIN RATIO 1.4 (calc) 1.0-2. 5 BILIRUBIN, TOTAL 0.3 mg/dL 0.2-1.2 ALKALINE PHOSPHATASE 65 U/L 31-125 AST 65 U/L 10-30 ALT 38 U/L 6-29 Complete blood count (CBC) with automate d white blood cell (WBC) differential - 10/15/19 18:05 Blood leukocytes automated count (number/volume) 8.7 10*3/uL 4.3-11.0 Blood erythrocytes automated count (number/volume) 4.87 10*6/uL 4.35-5.85 Venous blood hemoglobin measurement (mass/volume) 13.0 g/dL 11.5-16.0 Blood hematocrit (volume fraction) 40 % 35-52 Automated erythrocyte mean corpuscular volume 82 [ foz_us] 80-99 Automated erythrocyte mean corpuscular h emoglobin (mass per erythrocyte) 27 pg 25-34 Automated erythrocyte mean corpuscular h emoglobin concentration measurement (mass/volume) 33 g/dL 32-36 Automated erythrocyte distribution width ratio 15. 4 % 10.0- 14.5 Automated blood platelet count (count/volume) 260 10*3/uL 130-400 Automated blood platelet mean volume measurement 9.3 [foz_us] 7.4-10.4 Automated blood neutrophils/100 leukocytes 62 % 42-75 Automated blood lymphocytes/100 leukocytes 31 % 12-44 Blood monocytes/100 leukocytes 5 % 0-12 Automated blood eosinophils/100 leukocytes 3 % 0-10 Automated blood basophils/100 leukocytes 0 % 0-10 Blood neutrophils automated count (number/volume) 5.4 10*3 1.8-7.8 Blood lymphocytes automated count (number/volume) 2.7 10*3 1.0-4.0 Blood monocytes automated count (number/volume) 0. 4 10*3 0.0-1.0 Automated eosinophil count 0.2 10*3/uL 0 .0-0.3 Automated blood basophil count (count/volume) 0.0 10*3/uL 0.0-0.1 Comprehensive metabolic panel - 10/15/19 18:05 Serum or plasma sodium measurement (moles/volume) 142 mmol/L 135-145 Serum or plasma potassium measurement (moles/volume) 4.4 mmol/L 3.6-5.0 Serum or plasma chloride measurement (moles/volume) 105 mmol/L 98-107 Carbon dioxide 25 mmol/L 21-32 Serum or plasma anion gap determination (moles/volume) 12 mmol/L 5-14 Serum or plasma urea nitrogen measurement (mass/volume ) 16 mg/dL 7-18 Serum or plasma creatinine measurement (mass/volume) 0.96 mg/dL 0.60-1.30 Serum or plasma urea nitrogen/creatinine mass ratio 17 NRG Serum or plasma creatinine measurement w ith calculation of estimated glomerular filtration rate > NRG Serum or plasma glucose measurement (mass/volume) 91 mg/dL 70-105 Serum or plasma calcium measurement (mass/volume) 9.9 mg/dL 8.5-10.1 Serum or plasma total bilirubin measurement (mass/volu me) 0.2 mg/dL 0.1-1.0 Serum or plasma alkaline phosphatase allyson surement (enzymatic activity/volume) 65 U/L 40-136 Serum or plasma aspartate aminotransfera se measurement (enzymatic activity/volume) 60 U/L 5-34 Serum or plasma alanine aminotransferase measurement (enzymatic activity/volume) 39 U/L 0-55 Serum or plasma protein measurement (mass/volume) 8.0 g/dL 6.4-8.2 Serum or plasma albumin measurement (mass/volume) 4.3 g/dL 3.2-4.5 CALCIUM CORRECTED 9.7 mg/dL 8.5-10.1 Lipase - 10/15/19 18:05 Lipase 51 U/L 8-78 Serum or plasma C reactive protein measu rement (mass/volume) - 10/15/19 18:05 Serum or plasma C reactive protein measurement (mass/v olume) 1.23 mg/dL 0.00-0.50 Complete urinalysis with reflex to cultu re - 10/15/19 18:05 Urine color determination YELLOW NRG Urine clarity determination CLEAR NR G Urine pH measurement by test strip 5.5 5-9 Specific gravity of urine by test strip 1.025 1.016-1.022 Urine protein assay by test strip, semi-quantitative NEGATIVE NEGATIVE Urine glucose detection by automated test strip NE GATIVE NEGATIVE Erythrocytes detection in urine sediment by light micr oscopy NEGATIVE NEGATIVE Urine ketones detection by automated test strip NE GATIVE NEGATIVE Urine nitrite detection by test strip NEGATIVE NEGATIVE Urine total bilirubin detection by test strip NEGA TIVE NEGATIVE Urine urobilinogen measurement by automated test strip (mass/volume) 0.2 mg/dL < = 1.0 Urine leukocyte esterase detection by dipstick NEG ATIVE NEGATIVE Automated urine sediment erythrocyte cou nt by microscopy (number/high power field) [HPF] NRG Automated urine sediment leukocyte count by microscopy (number/high power field) [HPF] NRG Bacteria detection in urine sediment by light microsco py MODERATE NRG Squamous epithelial cells detection in u rine sediment by light microscopy 2-5 NRG Crystals detection in urine sediment by light microsco py PRESENT NRG Casts detection in urine sediment by light microscopy NONE NRG Mucus detection in urine sediment by light microscopy NEGATIVE NRG Complete urinalysis with reflex to culture YES NRG Amorphous sediment detection in urine sediment by ligh t microscopy FEW [place] URATES NRG Bacterial urine culture - 10/15/19 18:05 Bacterial urine culture NG NRG Encounters ACCT No. Visit Date/Time Discharge Status Pt. Type Provider Facility Loc./Unit Complaint [id number] 07/26/2016 08:41:00 Document Registration [id number] 10/15/2019 17:45:00 19:01:00 DIS Emergency SHRUTHI PARISH, MAKAYLA Alston Via [facility] ER L SIDE PAIN [id number] 09/14/2019 09:30:00 23:59:59 CLS Preadmit LINDSEY MARROQUIN DO [facility] ENDO MELENA/GERD [id number] 09/07/2019 05:40:00 14:12:00 DIS Outpatient LINDSEY MARROQUIN DO [facility] PREOP COLONOSCOPY/EGD [id number] 08/12/2019 13:04:00 15:13:00 DIS Emergency SHANKAR GAMING, YAN Hurd [place] a [facility] ER ABD PAIN;HEAD ACHE [id number] 07/08/2019 10:11:00 12:45:00 DIS Emergency GEORGES FINN APRN Via [facility] ER ABD PAIN [id number] 07/04/2019 22:55:00 02:11:00 DIS Emergency YUKI MARCH MD Via [facility] ER RLQ PAIN [id number] 06/14/2019 20:19:00 23:46:00 DIS Emergency KIARA MORRISON Via [facility] ER FALL/ PAIN ON LT SIDE , RT ANKLE PAIN [id number] 05/29/2019 08:41:00 13:14:00 DIS Emergency YUKI MARCH MD Via [facility] ER ABD/BACK PAIN [id number] 05/28/2019 12:02:00 23:59:59 CLS Outpatient DEE BAH MD Via [facility] RAD THORACIC OUTLET SYNDROM E [id number] 05/22/2019 12:36:00 13:47:00 DIS Emergency GEORGES FINN APRN Via [facility] ER WRIST CUT [id number] 05/12/2019 12:10:00 14:58:00 DIS Emergency DAVIDGEOVANI SENIOR RELIABILITY ENGINEER Via [facility] ER NAUSEA/VOMITTING [id number] 04/30/2019 07:51:00 23:59:59 CLS Outpatient ROCHELLE FERMIN MD Via [facility] RAD R/O THYROID DUCTUS CYST S [id number] 04/07/2019 10:18:00 15:06:00 DIS Emergency GEORGES FINN APRN Via [facility] ER LEFT SIDE PAIN [id number] 03/31/2019 09:38:00 23:59:59 CLS Outpatient JENY PARISH, ROCHELLE Salgado Via [facility] RAD CHRONIC SORE THROAT W/ REFERRED EAR PAIN [id number] 03/31/2019 10:08:00 11:57:00 DIS Emergency GEORGES FINN APRN Via [facility] ER BILATERAL HAND NUMBNESS [id number] 03/24/2019 08:00:00 08:00:00 CAN Preadmit RAJAT ENRIQUEZ ASSURANCE ENGINEER Via [facility] RAD CERVICAL RADICU LOPATHY [id number] 03/22/2019 07:07:00 09:30:00 DIS Emergency MAKAYLA HAWKINS MD Via [facility] ER ABD PAIN / VOMITING [id number] 03/10/2019 13:50:00 15:33:00 DIS Emergency GEORGES FINN APRN Via [facility] ER HEADACHE [id number] 03/06/2019 19:46:00 21:15:00 DIS Emergency GEORGES FINN APRN Via [facility] ER RT SIDE PAIN [id number] 02/17/2019 21:38:00 06:14:00 DIS Outpatient SAI PARISH, CARMEN Christie Via [facility] SLEEP G47.30 OBSERVED SLEEP A PNEA [id number] 02/11/2019 16:30:00 20:21:00 DIS Emergency GEOVANI HERNANDEZ Via [facility] ER ABD PAIN [id number] 01/31/2019 04:40:00 05:36:00 DIS Emergency SHANKAR DO, YAN K Vi a [facility] ER CONGESTION,FEVER,COUGH [id number] 01/26/2019 19:08:00 22:04:00 DIS Emergency DEMETRIO KAY Via [facility] ER SORE THROAT [id number] 01/20/2019 07:17:00 23:59:59 CLS Outpatient KIARA MORRISON Via [facility] RAD LLE CALF PAIN,L T FOOT SWELLING [id number] 01/20/2019 07:16:00 23:59:59 CLS Outpatient CARMEN GIBBS MD Via [facility] RAD ELEVATED LFTS [id number] 01/10/2019 16:51:00 19:32:00 DIS Emergency KIARA MORRISON Via [facility] ER L LEG PAIN [id number] 01/07/2019 11:03:00 11:54:00 DIS Emergency GEORGES FINN APRN Via [facility] ER SIDE PAIN;NAUSEA [id number] 12/10/2018 13:24:00 15:03:00 DIS Emergency MAKAYLA HAWKINS MD Via [facility] ER ABD PAIN;NAUSEA [id number] 11/18/2018 15:18:00 23:59:59 CLS Outpatient LINDSEY MARROQUIN DO Via [facility] RAD LEFT QUAD PAIN [id number] 11/15/2018 13:51:00 17:25:00 DIS Emergency DEMETRIO KAY Via [facility] ER VOMITING [id number] 11/11/2018 09:22:00 13:03:00 DIS Emergency YUKI MARCH MD Via [facility] ER STOMACH PAIN [id number] 10/29/2018 14:06:00 17:05:00 DIS Emergency DEMETRIO KAY Via [facility] ER ABD PAIN [id number] 10/22/2018 07:10:00 15:05:00 DIS Inpatient LINDSEY MARROQUIN DO Via [facility] 4TH RETROPERITONEAL HERNIA [id number] 10/15/2018 11:03:00 16:25:00 DIS Inpatient CARMEN GIBBS MD Via [facility] 4TH ABDOMINAL PAIN,R/O SMAL L BOWEL OBSTRUCTION [id number] 10/16/2018 05:35:00 16:23:00 DIS Outpatient LINDSEY MARROQUIN DO Via [facility] PREOP RETROPERITONEAL HERNIA [id number] 10/14/2018 14:17:00 16:48:00 DIS Emergency GEORGES FINN APRN Via [facility] ER ABD PAIN [id number] 09/20/2018 21:48:00 01:49:00 DIS Emergency SHANKAR GAMING YAN Vickey Malik a [facility] ER ABD PAIN,BLOOD IN STOOL [id number] 09/09/2018 13:46:00 14:36:00 DIS Emergency DEMETRIO KAY Via [facility] ER PAIN WITH URINATION [id number] 08/27/2018 12:14:00 16:30:00 DIS Outpatient LINDSEY MARROQUIN DO B Via [facility] ENDO INCOMPLETE PREP/BLOOD I N STOOLS [id number] 08/25/2018 15:50:00 16:06:00 DIS Outpatient LINDSEY MARROQUIN DO B Via [facility] PREOP COLONOSCOPY [id number] 08/13/2018 07:50:00 11:45:00 DIS Outpatient LINDSEY MARROQUIN DO B Via [facility] ENDO BLOOD IN STOOLS [id number] 08/11/2018 06:10:00 12:32:00 DIS Outpatient LINDSEY MARROQUIN DO Via [facility] PREOP COLONOSCOPY [id number] 07/17/2018 11:15:00 12:46:00 DIS Emergency GEORGES FINN APRN Via [facility] ER CHEST PAIN;HIGH BP [id number] 07/17/2018 00:57:00 04:15:00 DIS Emergency MAKAYLA HAWKINS MD Via [facility] ER RT SHOULDER PAIN [id number] 07/09/2018 09:47:00 23:59:59 CLS Preadmit SAI PARISH, CARMEN Christie Via [facility] CARD COUGH [id number] 07/07/2018 06:12:00 10:27:00 DIS Emergency JOAQUIM PARISH, YUKI Machado Via [facility] ER RT ARM PAIN,CHLOE ST PAIN [id number] 07/05/2018 10:10:00 12:48:00 DIS Emergency DEMETRIO KAY Via [facility] ER R SHOULDER PAIN [id number] 07/01/2018 08:43:00 14:07:00 DIS Emergency SHRUTHI PARISH, MAKAYLA Alston Via [facility] ER ABD PAIN;VOMITING;COUGH [id number] 06/24/2018 09:16:00 10:52:00 DIS Emergency SHRUTHI PARISH, MAKAYLA Alston Via [facility] ER PAIN WHILE URINATING;LO WER BACK PAIN [id number] 06/20/2018 13:48:00 23:59:59 CLS Outpatient LINDSEY MARROQUIN DO Via [facility] LAB LEFT SIDED ABD PAIN [id number] 06/01/2018 03:49:00 06:08:00 DIS Emergency YAN CHAPARRO DO a [facility] ER LFT SIDE PAIN [id number] 05/25/2018 09:52:00 12:04:00 DIS Emergency GEORGES FINN APRN Via [facility] ER R SIDE PAIN [id number] 04/29/2018 09:32:00 12:40:00 DIS Emergency GEORGES FINN APRN Via [facility] ER DEHYDRATION, HEADACHE, STOMACH PAIN NAUSEA [id number] 03/17/2018 00:16:00 23:59:59 CLS Preadmit TRUPTI PARISH, YUNIOR nickerson [facility] SDC DEHYDRATION+ENTEROLOCCU S IN BLOOD [id number] 03/12/2018 10:04:00 23:59:59 CLS Outpatient CARMEN GIBBS MD Via [facility] RAD LEFT UPPER ARM PAIN [id number] 03/01/2018 21:25:00 018 01:02:00 DIS Emergency MAKAYLA HAWKINS MD Via [facility] ER DRAIN TUBE / LEG SWOLLE N [id number] 03/01/2018 01:20:00 018 02:22:00 DIS Emergency MAKAYLA HAWKINS MD Via [facility] ER DRAIN TUBE LEAKING [id number] 02/28/2018 11:25:00 018 23:59:59 CLS Outpatient KINSEY BOWENS APRN Via [facility] RAD M79.671 [id number] 02/24/2018 13:03:00 018 18:14:00 DIS Emergency DEMETRIO KAY Via [facility] ER TROUBLE BREATHING [id number] 02/13/2018 10:48:00 018 16:00:00 DIS Outpatient LINDSEY MARROQUIN DO Via [facility] SDC LEFT LOWER QUADRANT MAS S [id number] 02/12/2018 05:49:00 018 10:20:00 DIS Outpatient LINDSEY MARROQUIN DO B Via [facility] PREOP LEFT LOWER QUADRANT MAS S [id number] 02/04/2018 07:44:00 018 11:01:00 DIS Emergency IZABELA RENDON MD Via [facility] ER LEFT SIDE PAIN [id number] 12/27/2017 08:05:00 018 00:01:00 DIS Outpatient YUNIOR LYLES MD Via [facility] SDC DEHYDRATION+ENTEROLOCCU S IN BLOOD [id number] 01/07/2018 08:46:00 018 23:59:59 CLS Outpatient CARMEN GIBBS MD Via [facility] RAD POSTOPERATIVE SEROMA IN VOLVING DIGESTIVE SYSTEM [id number] 12/29/2017 16:30:00 018 16:10:00 DIS Inpatient CARMEN GIBBS MD Via [facility] 4TH PERSISTENT VOMITING AND ABD PAIN [id number] 12/18/2017 01:24:00 018 06:11:00 DIS Emergency MAKAYLA HAWKINS MD Via [facility] ER N/V/D [id number] 12/13/2017 16:40:00 018 19:06:00 DIS Emergency GEORGES FINN ASSURANCE ENGINEER Via [facility] ER N / FEELS LIKE VOMITING / BLOODY DIARRHEA [id number] 12/04/2017 08:36:00 018 09:31:00 DIS Emergency YUKI MARCH MD Via [facility] ER RT SHOULDER WILL DE PAIN [id number] 11/25/2017 12:45:00 018 12:45:00 CAN Preadmit CARMEN GIBBS MD Via [facility] RAD NODULE OF LEFT LUNG [id number] 11/17/2017 17:20:00 018 17:20:00 CAN Preadmit RADHA MALLORY MD Via [facility] ER DRAIN TUBE FELL OUT [id number] 11/12/2017 12:17:00 018 15:15:00 DIS Outpatient LINDSEY MARROQUIN DO Via [facility] SDC SUBCUTANOUS ABD FLUID [id number] 11/11/2017 09:16:00 018 12:22:00 DIS Emergency MAKAYLA HAWKINS MD Via [facility] ER L SIDE PAIN,NAUSEA [id number] 10/22/2017 10:55:00 018 15:57:00 DIS Emergency YUKI MARCH MD Via [facility] ER SHOULDER/BACK P AIN [id number] 10/01/2017 07:58:00 018 23:59:59 CLS Outpatient YUNIOR LYLES MD Via [facility] RAD LLQ ABD PAIN [id number] 09/03/2017 14:08:00 018 15:15:00 DIS Inpatient YUNIOR LYLES MD, V ia [facility] 4TH POST OP SEROMA/HEMATOMA L ABDOMEN [id number] 08/30/2017 21:33:00 018 23:27:00 DIS Emergency SHANKAR GAMING YAN Hurd [place] nickerson [facility] ER INCISION SITE INFECTION [id number] 08/22/2017 10:45:00 018 17:45:00 DIS Outpatient YUNIOR LYLES MD Via [facility] SDC SYMPTOMATIC VENTRAL ABD OMINAL INCISIONAL HERNIA [id number] 08/20/2017 05:40:00 018 13:12:00 DIS Outpatient YUNIOR LYLES MD Via [facility] PREOP SYMPTOMATIC VENTRAL ABD OMINAL INCISIONAL HERNIA [id number] 08/12/2017 15:42:00 018 19:26:00 DIS Emergency MAKAYLA HAWKINS MD Via [facility] ER LEFT SIDE PAIN [id number] 07/29/2017 07:04:00 018 11:33:00 DIS Emergency MAKAYLA HAWKINS MD Via [facility] ER FALL ON ICE--BILATERAL ARM PAIN [id number] 07/22/2017 21:10:00 018 02:12:00 DIS Emergency YUKI MARCH MD Via [facility] ER STOMACH PAIN [id number] 07/03/2017 08:18:00 018 12:40:00 DIS Outpatient YUNIOR LYLES MD Via [facility] ENDO HX POLYPS [id number] 06/29/2017 18:40:00 018 21:31:00 DIS Emergency YUKI MARCH MD Via [facility] ER DARK URINE,STOM ACH PAIN, THROWING UP,PANCREATITIS [id number] 06/28/2017 10:00:00 018 10:11:00 DIS Outpatient YUNIOR LYLES MD Via [facility] PREOP COLONOSCOPY [id number] 05/30/2017 13:43:00 017 15:03:00 DIS Emergency GEORGES FINN APRN Via [facility] ER CANNOT URINATE [id number] 04/30/2017 01:09:00 017 03:16:00 DIS Emergency YAN CHAPARRO DO [facility] ER LOWER ABD PAIN [id number] 04/17/2017 20:45:00 017 01:11:00 DIS Emergency KIARA MORRISON Via [facility] ER ABDOMINAL PAIN,KIDNEY SURGERY ON 04/10 [id number] 04/13/2017 16:02:00 017 18:36:00 DIS Emergency GEORGES FINN ASSURANCE ENGINEER Via [facility] ER NO BOWEL MOVEMENT, KIDN EY SURGERY ON 04/10,RASH [id number] 03/14/2017 00:17:00 017 06:22:00 DIS Emergency JOAQUIM PARISH, YUKI Machado Via [facility] ER ABD PAIN [id number] 03/07/2017 08:45:00 017 12:32:00 DIS Emergency JUSTICE PARISH, IZABELA Martinez Via [facility] ER ABD PAIN [id number] 02/21/2017 06:02:00 017 07:06:00 DIS Emergency SHRUTHI PARISH, MAKAYLA Alston Via [facility] ER GLENNA ON NECK-HOT,MEJIA,HU RTS TO SWALLOW [id number] 01/30/2017 23:32:00 017 00:22:00 DIS Emergency YAN CHAPARRO DO [facility] ER POSS ALLERGIC RXN [id number] 12/01/2016 16:29:00 017 19:04:00 DIS Emergency CHARLY PARISH, ADRIÁN Leal Via [facility] ER FEVER/THROAT PAIN [id number] 10/26/2016 12:59:00 017 14:50:00 DIS Emergency KIARA MORRISON Via [facility] ER VAGINAL DISCOMFORT [id number] 10/11/2016 15:52:00 017 18:28:00 DIS Emergency GEOVANI HERNANDEZ Via [facility] ER SOA,ABD PAIN WHEN BREAT JERRELL, NUMBNESS IN ARMS [id number] 08/28/2016 08:49:00 017 23:59:59 CLS Outpatient CARMEN GIBBS MD Via [facility] RAD NECK MASS [id number] 08/16/2016 12:45:00 017 23:59:59 CLS Preadmit CARMEN GIBBS MD Via [facility] RAD HEMOPLYSIS,NECK MASS [id number] 08/16/2016 12:21:00 017 23:59:59 CLS Outpatient CARMEN GIBBS MD Via [facility] RAD HEMOPLYSIS,NECK MASS [id number] 08/05/2016 10:59:00 017 14:43:00 DIS Emergency KIARA MORRISON Via [facility] ER ABD PAIN TO BACK [id number] 06/24/2016 09:45:00 017 11:04:00 DIS Emergency ADRIÁN PARKS MD Via [facility] ER SORE THROAT/COUGH/GREEN SPUTUM/DIZZY [id number] 05/30/2016 06:46:00 016 10:08:00 DIS Outpatient ROCHELLE CANNON MD Via [facility] SDC RIGHT KNEE TORM MEDIAL MENISCUS [id number] 05/23/2016 10:59:00 016 12:12:00 DIS Emergency GEORGES FINN APRN Via [facility] ER FATIGUE [id number] 05/23/2016 09:58:00 016 10:43:00 DIS Outpatient ROCHELLE CANNON MD Via [facility] PREOP RIGHT KNEE TORN MEDIAL MENISCUS [id number] 05/02/2016 15:02:00 016 23:59:59 CLS Outpatient ROCHELLE CANNON MD Via [facility] RAD M23.231 [id number] 03/05/2016 16:10:00 016 19:42:00 DIS Emergency YUKI MARCH MD Via [facility] ER VAGINAL BLEEDIN G [id number] 12/21/2015 10:36:00 14:35:00 DIS Inpatient CARMEN GIBBS MD Via [facility] 4TH CELLULITIS [id number] 12/19/2015 11:50:00 14:29:00 DIS Emergency GEORGES FINN PASTOR Via [facility] ER RIGHT LEG PAIN [id number] 12/18/2015 12:43:00 16:00:00 DIS Emergency KIARA MORRISON Via [facility] ER R LEG KNOT POST SURGER Y [id number] 12/12/2015 09:12:00 23:59:59 CLS Outpatient ROCHELLE CANNON MD Via [facility] RAD DVT [id number] 11/24/2015 13:16:00 23:59:59 CLS Outpatient ROCHELLE CANNON MD Via [facility] RAD MEDIAL MENISCUS TEAR [id number] 09/06/2015 07:15:00 13:25:00 DIS Outpatient YUNIOR LYLES MD Via [facility] [address] LYMPHADEROPATHY [id number] 08/31/2015 11:25:00 11:53:00 DIS Outpatient YUNIOR LYLES MD Via [facility] PREOP LIMP NODE [id number] 06/22/2015 10:51:00 23:59:59 CLS Preadmit CARMEN GIBBS MD Via [facility] REHAB [id number] 06/08/2015 06:16:00 11:35:00 DIS Outpatient ROCHELLE CANNON MD Via [facility] [address] RIGHT KNEE TORN MEDIAL MENISCUS [id number] 06/02/2015 10:22:00 23:59:59 CLS Outpatient CARMEN GIBBS MD Via [facility] LAB HLP [id number] 06/02/2015 10:13:00 23:59:59 CLS Outpatient ROCHELLE CANNON MD Via [facility] PREOP RIGHT KNEE TORN MEDIAL MENISCUS [id number] 05/19/2015 08:58:00 015 23:59:59 CLS Outpatient DAVIS PARISH, ROCHELLE Salgado Via [facility] RAD QUADRICEPT TENDONITIS [id number] 01/12/2015 14:32:00 23:59:59 CLS Outpatient DEE BAH MD Via [facility] RAD CERVICAL STENOSIS LUMBA R STENOSIS [id number] 11/23/2014 23:46:00 015 02:37:00 DIS Emergency JUSTICE PARISH, IZABELA Martinez Via [facility] ER ABD PAIN [id number] 09/13/2014 09:03:00 015 11:31:00 DIS Emergency JUSTICE PARISH, IZABELA Martinez Via [facility] ER BACK PAIN [id number] 09/04/2014 13:48:00 015 15:54:00 DIS Emergency GEORGES FINN ASSURANCE ENGINEER Via [facility] ER BACK PAIN [id number] 05/28/2014 01:35:00 014 03:07:00 DIS Emergency ISSAC MASTERS MD Via [facility] ER POSS ALLERGIC RXN,HEAD PAIN [id number] 05/27/2014 08:20:00 014 10:31:00 DIS Emergency RADHA MALLORY MD Via [facility] ER HEADACHE/NAUSEA [id number] 03/21/2014 17:22:00 014 18:07:00 DIS Emergency YAN CHAPARRO DO [facility] ER CRAMPING [id number] 02/04/2014 08:30:00 014 23:59:59 CLS Outpatient LAZARO HURTADO Via [facility] CARD HTN,DYSPNEA [id number] 01/19/2014 13:10:00 014 14:04:00 DIS Emergency YAN CHAPARRO DO [facility] ER LOW BACK PAIN/UTI SYMPT OMS [id number] 11/20/2013 16:25:00 014 17:42:00 DIS Emergency GEORGES FINN ASSURANCE ENGINEER Via [facility] ER BACK PAIN [id number] 10/29/2013 10:28:00 12:02:00 DIS Emergency SHANKAR YAN GAMING [facility] ER NAUSEATED/VOMITING [id number] 10/06/2013 15:24:00 18:34:00 DIS Emergency KIARA MORRISON Via [facility] ER ABD PAIN [id number] 09/07/2013 07:08:00 12:30:00 DIS Outpatient TATA TOMAS MD [facility] SDC COCCYGDYNIA [id number] 09/01/2013 13:39:00 23:59:59 CLS Outpatient TATA TOMAS MD [facility] PREOP COCCYGDYNIA [id number] 07/31/2013 06:31:00 07:53:00 DIS Outpatient LUIS MORENO MD [facility] CARD COCCYX PAIN [id number] 06/30/2013 07:14:00 23:59:59 CLS Outpatient RONY ALDANA APRN [facility] RAD ELEVATED LIVER ENZYMES [id number] 06/25/2013 16:02:00 19:00:00 DIS Emergency ISSAC MASTERS MD [facility] ER NAUSEA,VOMITING [id number] 06/04/2013 21:16:00 21:44:00 DIS Emergency YAN CHAPARRO DO [facility] ER WOUND CHECK [id number] 05/29/2013 20:51:00 01:31:00 DIS Emergency KIARA MORRISON [facility] ER POSS ABSCESS [id number] 05/28/2013 10:15:00 18:57:00 DIS Emergency SHANKAR YAN GAMING [facility] ER LEFT LEG KNOT [id number] 05/11/2013 19:26:00 19:56:00 DIS Emergency GEORGES FINN APRN [facility] ER RASH [id number] 05/03/2013 09:13:00 11:33:00 DIS Emergency IZABELA RENDON MD [facility] ER ABD CRAMPING [id number] 03/08/2013 15:14:00 013 16:28:00 DIS [facility] HEADACHE [id number] 02/12/2013 14:02:00 16:12:00 DIS Emergency RADHA MALLORY MD [facility] ER HEADACHE [id number] 02/03/2013 09:00:00 23:59:59 CLS Outpatient [id number] 01/25/2013 16:03:00 16:39:00 DIS Emergency [facility] ER TAILBONE THROBS [id number] 01/23/2013 07:33:00 23:59:59 CLS Outpatient LUIS MORENO MD [facility] CARD COCCYX PAIN [id number] 12/30/2012 11:28:00 12:33:00 DIS Emergency JOHN GALDAMEZ MD [facility] ER LOOSING FEELING IN HAND S [id number] 11/29/2012 20:20:00 013 21:04:00 DIS Emergency ISSAC MASTERS MD [facility] ER POST OP COMPLICATIONS [id number] 11/01/2012 13:48:00 013 16:16:00 DIS Emergency SHANKAR DOYAN [facility] ER R SIDE ABD PAIN [id number] 10/26/2019 09:30:00 P EN Preadmit LINDSEY MARROQUIN DO [facility], SKY [id number] 06/17/2018 12:59:00 Document Registration [id number] 05/28/2014 05:09:00 Document Registration [id number] 05/28/2014 05:09:00 Document Registration [id number] 05/28/2014 05:08:00 Document Registration [id number] 05/28/2014 05:08:00 Document Registration [id number] 05/28/2014 05:08:00 Document Registration [id number] 09/25/2012 15:23:00 Document Registration [id number] 07/09/2012 13:55:00 Document Registration [id number] 06/03/2012 18:43:00 Document Registration [id number] 05/28/2012 06:01:00 Document Registration [id number] 05/26/2012 07:40:00 Document Registration [id number] 04/29/2012 19:28:00 Document Registration [id number] 04/14/2012 20:36:00 Document Registration [id number] 04/02/2012 15:46:00 Document Registration [id number] 03/10/2012 08:51:00 Document Registration [id number] 02/02/2012 08:22:00 Document Registration [id number] 11/05/2011 18:15:00 Document Registration [id number] 10/09/2011 15:34:00 Document Registration [id number] 09/28/2011 12:13:00 Document Registration [id number] 08/20/2011 11:21:00 Document Registration [id number] 08/07/2011 12:50:00 Document Registration [id number] 06/19/2011 15:10:00 Document Registration [id number] 06/14/2011 10:23:00 Document Registration [id number] 04/26/2011 09:49:00 Document Registration [id number] 04/01/2011 15:48:00 Document Registration [id number] 01/14/2011 20:10:00 Document Registration [id number] 01/10/2011 01:57:00 Document Registration [id number] 12/29/2010 21:29:00 Document Registration [id number] 12/08/2010 18:15:00 Document Registration [id number] 11/16/2010 19:34:00 Document Registration [id number] 11/13/2010 17:20:00 Document Registration [id number] 10/07/2010 15:04:00 Document Registration [id number] 10/01/2010 20:35:00 Document Registration [id number] 09/29/2010 15:45:00 Document Registration [id number] 09/22/2010 00:30:00 Document Registration [id number] 09/20/2010 18:21:00 Document Registration [id number] 09/16/2010 19:14:00 Document Registration [id number] 09/06/2010 15:05:00 Document Registration [id number] 08/30/2010 16:23:00 Document Registration [id number] 07/31/2010 10:04:00 Document Registration [id number] 07/24/2010 05:42:00 Document Registration [id number] 07/12/2010 09:04:00 Document Registration [id number] 07/02/2010 12:40:00 Document Registration [id number] 06/07/2010 10:52:00 Document Registration [id number] 05/22/2010 18:40:00 Document Registration [id number] 05/09/2010 13:26:00 Document Registration [id number] 04/07/2010 16:51:00 Document Registration [id number] 03/31/2010 12:30:00 Document Registration [id number] 03/22/2010 20:54:00 Document Registration [id number] 02/13/2010 10:21:00 Document Registration [id number] 02/07/2010 17:04:00 Document Registration [id number] 02/05/2010 19:55:00 Document Registration [id number] 01/23/2010 10:58:00 Document Registration [id number] 01/09/2010 05:35:00 Document Registration [id number] 01/05/2010 07:39:00 Document Registration [id number] 12/13/2009 10:13:00 Document Registration [id number] 11/07/2009 17:37:00 Document Registration [id number] 11/03/2009 09:46:00 Document Registration [id number] 11/07/2016 11:10:00 Document Registration [id number] 10/08/2019 13:20:00 10/08/2019 23:59: 59 CLS Outpatient CARMEN GIBBS MD [facility] [id number] 10/08/2019 13:20:00 Document Registration [id number] 07/23/2019 12:00:00 Document Registration [id number] 02/19/2019 09:20:00 Document Registration [id number] 02/18/2019 10:40:00 Document Registration [id number] 12/29/2018 08:20:00 Document Registration [id number] 10/20/2018 14:30:00 Document Registration [id number] 09/23/2018 10:00:00 Document Registration [id number] 04/07/2018 07:55:00 Document Registration [id number] 01/06/2018 13:00:00 Document Registration [id number] 12/17/2017 10:40:00 Document Registration [id number] 11/26/2017 10:20:00 Document Registration [id number] 09/06/2014 08:47:00 09/06/2014 23:59: 59 CLS Outpatient GONZALES EMIL GAMING Vickey [id number] 09/06/2014 08:47:00 09/06/2014 23:59: 59 CLS Outpatient ANSON WADE APRN [id number] 08/17/2014 09:19:00 08/17/2014 23:59: 59 CLS Outpatient CARMEN GIBBS MD [id number] 07/21/2014 07:46:00 07/21/2014 23:59: 59 CLS Outpatient CARMEN GIBBS MD [id number] 07/05/2014 10:18:00 07/05/2014 23:59: 59 CLS Outpatient ANSON WADE APRN [id number] 06/03/2014 15:45:00 06/03/2014 23:59: 59 CLS Outpatient CARMEN GIBBS MD [id number] 05/31/2014 12:15:00 05/31/2014 23:59: 59 CLS Outpatient ELLIOT MORENO DDS [id number] 05/25/2014 10:56:00 05/25/2014 23:59: 59 CLS Outpatient RAQUEL TOBIAS APRN [id number] 05/17/2014 10:52:00 05/17/2014 23:59: 59 CLS Outpatient ANSON WADE APRN L [id number] 05/10/2014 09:54:00 05/10/2014 23:59: 59 CLS Outpatient ANSON WADE APRN L [id number] 04/27/2014 13:25:00 04/27/2014 23:59: 59 CLS Outpatient CARMEN GIBBS MD [id number] 03/30/2014 15:35:00 03/30/2014 23:59: 59 CLS Outpatient MALACHI TOBIAS APRNINA R [id number] 02/24/2014 14:34:00 02/24/2014 23:59: 59 CLS Outpatient LUIS ALFREDO BAUMANN BRENNA Dean [id number] 02/05/2014 15:30:00 02/05/2014 23:59: 59 CLS Outpatient CARMEN GIBBS MD [id number] 01/21/2014 15:35:00 01/21/2014 23:59: 59 CLS Outpatient EMIL ROLON DO [id number] 01/13/2014 00:00:00 01/13/2014 23:59: 59 CLS Outpatient MICHELINE BAUMANN RAQUEL R [id number] 12/15/2013 14:31:00 12/15/2013 23:59: 59 CLS Outpatient CARMEN GIBBS MD [id number] 11/03/2013 09:45:00 11/03/2013 23:59: 59 CLS Outpatient ANSON WADE APRN Benji [id number] 10/28/2013 15:00:00 10/28/2013 23:59: 59 CLS Outpatient LUIS ALFREDO BAUMANNBRENNA R [id number] 10/28/2013 15:00:00 10/28/2013 23:59: 59 CLS Outpatient LUIS ALFREDO YUBRENNA Christie R [id number] 09/28/2013 08:54:00 09/28/2013 23:59: 59 CLS Outpatient OSMAN ALVAREZ APRN [id number] 09/23/2013 10:48:00 09/23/2013 23:59: 59 CLS Outpatient EMIL ROLON DO [id number] 09/23/2013 10:48:00 09/23/2013 23:59: 59 CLS Outpatient EMIL ROLON DO [id number] 09/17/2013 14:15:00 09/17/2013 23:59: 59 CLS Outpatient EMIL ROLON DO Vickey [id number] 09/16/2013 14:57:00 09/16/2013 23:59: 59 CLS Outpatient GONZALES GAMING EMIL Hurd [id number] 09/16/2013 14:57:00 09/16/2013 23:59: 59 CLS Outpatient GONZALES GAMING EMIL Hurd [id number] 09/12/2013 13:04:00 09/12/2013 23:59: 59 CLS Outpatient OSMAN ALVAREZ APRN [id number] 09/03/2013 11:29:00 09/03/2013 23:59: 59 CLS Outpatient CARMEN GIBBS MD [id number] 07/01/2013 08:59:00 07/01/2013 23:59: 59 CLS Outpatient CARMEN GIBBS MD [id number] 06/05/2013 14:44:00 06/05/2013 23:59: 59 CLS Outpatient EMIL ROLON DO [id number] 06/02/2013 12:44:00 06/02/2013 23:59: 59 CLS Outpatient RAQUEL LOPEZ DDS [id number] 05/29/2013 15:47:00 05/29/2013 23:59: 59 CLS Outpatient CARMEN GIBBS MD [id number] 05/27/2013 09:28:00 05/27/2013 23:59: 59 CLS Outpatient CARMEN GIBBS MD [id number] 05/12/2013 15:16:00 05/12/2013 23:59: 59 CLS Outpatient ELLY DOUGLAS MD [id number] 08/20/2012 15:44:00 08/20/2012 23:59: 59 CLS Outpatient GONZALES GAMING EMIL Hurd [id number] 07/07/2012 11:21:00 07/07/2012 23:59: 59 CLS Outpatient BRENNA LOBATO APRN [id number] 07/02/2012 09:18:00 07/02/2012 23:59: 59 CLS Outpatient [id number] 05/20/2012 10:05:00 05/20/2012 23:59: 59 CLS Outpatient REGINO BOYD DDS [id number] 04/10/2012 08:55:00 04/10/2012 23:59:5 9 CLS Outpatient ROLON EMIL [id number] 01/04/2017 11:08:00 Document Registration [id number] 08/15/2016 08:41:00 Document Registration
[2019-10-17] MEDS ORDERED: SCOPOLAMINE 1.5 MG (TRANSDERM-SCOP) PATCH TD ONE (06:30)
--- NOTE | 2019-10-17 06:54 | NUR ---
Report given to Juany Harris RN
--- NOTE | 2019-10-17 07:56 | NUR ---
PT STATES SHE IS STILL PUKING. DR CHAPARRO NOTIFIED.
[2019-10-17 08:33] VITALS: BP 129/79
--- NOTE | 2019-10-17 09:12 | Diagnostic Imaging Report ---
EXAMINATION: Abdomen at 6:09 AM INDICATION: Abdominal pain Supine and erect views of the abdomen were obtained. There is only a very small amount of gas in both the large and small bowel. The amount of bowel gas has diminished since the prior exam of 05/29/2019. There is no evidence for bowel obstruction. There is at least a moderate amount of fecal material throughout the ascending, transverse and descending colon. There is no mass, hepatomegaly or pathological calcification evident. There is no sign of a pneumoperitoneum. Surgical clips are again seen overlying the right abdomen and there are surgical sutures overlying the left mid abdomen. The osseous structures are intact. IMPRESSION: 1. The bowel gas pattern is nonspecific. There is no evidence for an acute abnormality. 2. There is a fair amount of fecal material in the ascending, transverse, and descending colon. Dictated by: Dictated on workstation # [id number]
== END 2019-10-17 08:33 | disposition home or self-care (01) ==
LOC: EDUNIT# 04:56 → ER 04:58
DX: R10.9 Unspecified abdominal pain (principal); G89.29 Other chronic pain; R11.2 Nausea with vomiting, unspecified; F32.9 Major depressive disorder, single episode, unspecified; E66.9 Obesity, unspecified; Z88.5 Allergy status to narcotic agent; Z88.0 Allergy status to penicillin; Z88.1 Allergy status to other antibiotic agents; Z86.010 Personal history of colon polyps; Z85.528 Personal history of other malignant neoplasm of kidney; Z82.49 Family history of ischemic heart disease and other diseases of the circulatory system; Z98.890 Other specified postprocedural states; Z68.42 Body mass index [BMI] 45.0-49.9, adult
CPT/HCPCS: 36415; 74019; 80053; 81000; 83690; 85025; 86141

== ENCOUNTER 2019-10-22 07:21 | Outpatient (RCR) | payer MEDICARE, MEDICAID ==
[~2019-10-22] VITALS: Ht 157.5 cm; Wt 116.8 kg
== END 2019-10-22 15:26 | disposition home or self-care (01) ==
LOC: PREOP 07:21
PROVIDERS: ATTEND Surgery
DX: Z01.818 Encounter for other preprocedural examination (principal); Z11.59 Encounter for screening for other viral diseases
CPT/HCPCS: 87635

== ENCOUNTER 2019-12-07 14:51 | Emergency (ER) | payer MEDICARE, MEDICAID ==
[~2019-12-07] VITALS: Ht 160 cm; Wt 115.7 kg
[~2019-12-07 14:51] MED LIST changes: +HYDR-83 PO; +SCOP1PAT11 TD
--- NOTE | 2019-12-07 15:13 | ED Headache ---
General Chief Complaint: Head/Cervical Problems Stated Complaint: HEADACHE Nursing Triage Note: PT AMB TO RM 7 WITH COMPLAINT OF HEADACHE FOR [address] DURING THIS TIME AND TOLD TO DRINK MORE WATER. STATES HAS BEEN TAKING TYLENOL WITH NO RELIEF. Nursing Sepsis Screen: No Definite Risk Source: patient History of Present Illness Date Seen by Provider: Dec 07, 2019 Time Seen by Provider: 15:11 Initial Comments 34-year-old female complains of a headache for about 2-2-1/2 weeks. Patient reports she has a history of headaches. That normally she gets them when she is "dehydrated" patient reports that she called her primary care provider who told her just to drink more water. She reports she been trying Tylenol with minimal relief. Patient reports that she was has one kidney and has chronic nausea vomiting. Patient has no new associated symptoms with this. She denies any fevers chills cough. Patient's headache is frontal where her baseline headache is. She does not have any vision changes.. Allergies and Home Medications Allergies Coded Allergies: fentanyl (Verified Allergy, Unknown, 10/16/18) meperidine (Verified Allergy, Unknown, 10/16/18) penicillin G (Verified Allergy, Unknown, 10/16/18) vancomycin (Verified Adverse Reaction, Intermediate, severe itching, 10/26/19) Home Medications Acetaminophen 500 Mg Tablet, 1,000 MG PO Q8H PRN for PAIN-MILD (1-4), (Reported) Diphenhydramine HCl 25 Mg Capsule, 25 MG PO HS PRN for SLEEP, (Reported) Estradiol 1 Mg Tablet, 1 MG PO HS, (Reported) Hydrocodone/Acetaminophen 1 Each Tablet, 2 EACH PO Q6H PRN for PAIN-MILD (1-4), (Reported) Multivitamin 1 Each Tablet, 1 EACH PO DAILY, (Reported) Ondansetron 8 Mg Tab.rapdis, 8 MG PO Q8H PRN for NAUSEA/VOMITING, (Reported) Ropinirole HCl 4 Mg Tablet, 4 MG PO HS, (Reported) Scopolamine 1 Each Patch.td72, 1 EACH TD Q72H, (Reported) Sertraline HCl 50 Mg Tablet, 50 MG PO HS, (Reported) Patient Home Medication List Home Medication List Reviewed: Yes Review of Systems Review of Systems Constitutional: No chills, No fever Eyes: No Symptoms Reported Ears, Nose, Mouth, Throat: no symptoms reported Respiratory: no symptoms reported Cardiovascular: no symptoms reported Gastrointestinal: see HPI Genitourinary: no symptoms reported Skin: no symptoms reported Psychiatric/Neurological: Headache Past Oipwpud-Hqzriz-Augvta Hx Past Med/Social Hx: Reviewed Nursing Past Med/Soc Hx Patient Social History Alcohol Use: Denies Use Recreational Drug Use: No Smoking Status: Former Smoker Type Used: Cigarettes 2nd Hand Smoke Exposure: No Recent Foreign Travel: No Contact w/Someone Who Travel: No Recent Infectious Disease Expo: No Recent Hopitalizations: No Immunizations Up To Date Tetanus Booster (TDap): Less than 5yrs PED Vaccines UTD: No Date of Pneumonia Vaccine: May 17, 2012 Date of Influenza Vaccine: Jul 03, 2012 Seasonal Allergies Seasonal Allergies: Yes (MILD) Past Medical History Surgeries: Yes (KNEE SCOPES X5, HERNIA X2) Abdominal, Adenoidectomy, Appendectomy, Gallbladder, 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, Nephrectomy, Orthopedic, Tonsillectomy Respiratory: Yes Asthma Currently Using CPAP: No Currently Using BIPAP: No Cardiac: Yes Hypertension Neurological: Yes (RESTLESS LEG SYNDROME; CHRONIC DAILY HEADACHE COMPLAINTS) Headaches /Migraines 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: Yes (HX ENDOMETRIOSIS ) 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: 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 [employer] History: 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 Sexually Transmitted Disease: No HIV/AIDS: No Genitourinary: Yes (L KIDNEY REMOVED FOR TUMOR-MALIGNANT;) UTI-Chronic Gastrointestinal: Yes (CHRONIC ABDOMINAL PAIN AND NAUSEA/VOMTING COMPLAINTS) Abdominal Hernia, Gastroesophageal Reflux, Liver Disease/Jaundice, Obstructive Bowel, Pancreatitis, Polyps Musculoskeletal: Yes (COCCYX-REMOVED; MULTIPLE KNEE SURGERIES, ) Chronic Back Pain Endocrine: Yes (CHRONIC PANCREATITIS; OBESITY) HEENT: No Loss of Vision: Denies Hearing Impairment: Denies Cancer: Yes Kidney Did You Recieve Any Treatments: Yes What Type of Treatment Did You: Surgical Intervention Psychosocial: Yes Depression Integumentary: Yes Herpes Blood Disorders: No Adverse Reaction/Blood Tranf: No (N/A) Family Medical History Cardiovascular disease 19 FATHER Completed stroke 19 FATHER Diabetes mellitus 19 FATHER Hypercholesterolemia 19 FATHER 19 MOTHER Hypertension 19 FATHER 19 MOTHER Neoplasm 19 MOTHER Psychosocial problem 19 FATHER 19 MOTHER No Pertinent Family Hx, Cancer, Diabetes, Hypertension PSH: -RIGHT KNEE SCOPE X 5 -LEFT KNEE SCOPE X 2 -NASAL FRACTURE REPAIR -COCCYX REMOVAL -LEFT NEPHRECTOMY FOR MALIGNANCY -LEFT MID ABDOMEN INCISIONAL HERNIA REPAIR -DRAINAGE OF ABDOMINAL WALL ABSCESS -MULTIPLE EGD'S AND COLONOSCOPIES Physical Exam Vital Signs Vital Signs - First Documented 12/07/19 14:59 Temp 36.6 Pulse 84 Resp 20 B/P (MAP) 140/93 (109) Pulse Ox 95 O2 Delivery Room Air Capillary Refill : Less Than 3 Seconds Height, Weight, BMI Height: 5'3.00" Weight: 246lbs. 0oz. 111.363254zz; 45.00 BMI Method:Stated General Appearance: WD/WN, no apparent distress HEENT: PERRL/EOMI Neck: full range of motion, supple Cardiovascular: normal peripheral pulses, regular rate, rhythm Respiratory: lungs clear, normal breath sounds Gastrointestinal: non tender, soft Psychiatric: alert, oriented x 3 Crainal Nerves: normal hearing, normal speech, PERRL Motor/Sensory: no motor deficit, no sensory deficit Skin: normal color, warm/dry Progress/Results/Core Measures Results/Orders My Orders Orders - SHILA GONZALEZ DO Ed Iv/Invasive Line Start (12/07/19 15:14) Ns Iv 1000 Ml (Sodium Chloride 0.9%) (12/07/19 15:14) Ondansetron Injection (Zofran Injectio (12/07/19 15:15) Dexamethasone Injection (Decadron Inject (12/07/19 15:15) Orphenadrine Inj (Ed Only) (Norflex Inje (12/07/19 15:14) Ketamine Syringe (Ed Only) (Ketamine Syr (12/07/19 16:30) Medications Given in ED Vital Signs/I&O 12/07/19 12/07/19 14:59 17:37 Temp 36.6 36.6 Pulse 84 84 Resp 20 20 B/P (MAP) 140/93 (109) 140/93 (109) Pulse Ox 95 95 O2 Delivery Room Air Blood Pressure Mean: 109 Progress Progress Note : Time: 17:24 Progress Note Patient symptoms have significantly improved after treatment. She will be discharged home. She should follow-up with her primary care provider for further management and continuation of care of her headaches. Patient is discharged in stable condition Departure Impression Primary Impression: Headache Qualified Codes: R51 - Headache Disposition: 01 HOME, SELF-CARE Condition: Stable Departure-Patient Inst. Referrals: CARMEN GIBBS MD (PCP/Family) Primary Care Physician Patient Instructions: Headache, Adult (DC), Migraine Headache (DC) Add. Discharge Instructions: Emergency department focuses on treating and ruling out life-threatening diseases. Whenever possible, a diagnosis is given. However, most patients are given an impression based on their history, physical exam, and workup during your brief time in the ER. Information about probable diagnosis and other educational material has been provided. Please take the time to read and understand this information. It is very important that you follow up with a physician as discussed during the visit today. Failure to adhere to your follow-up instructions may lead to severe disability, injury, or so please make sure to keep your appointments or obtain one as requested. Please keep in mind the emergency department is not designed to your primary care or "family doctor" and nonurgent issues are best evaluated by an outpatient physician All discharge instructions reviewed with patient and/or family. Voiced understanding. SHILA GONZALEZ DO Dec 07, 2019 15:13
[2019-12-07] MEDS ORDERED: NS IV 1000 ML 1,000 ML IV SCH (15:14)
[2019-12-07] MEDS ORDERED: ORPHENADRINE 60 MG/2 ML (NORFLEX) AMP (ED ONLY) IV STA (15:14)
[2019-12-07] MEDS ORDERED: ONDANSETRON 4 MG/2 ML (SDV) Z0FRAN IVP ONE (15:15)
[2019-12-07] MEDS ORDERED: DEXAMETHASONE 10 MG/ML (DECADRON) 1 ML VIAL IV ONE (15:15)
[2019-12-07] MEDS ORDERED: KETAMINE/NaCl 50 MG/5 ML SYRINGE (ED ONLY) IV ONE (16:30)
[2019-12-07 17:37] VITALS: BP 140/93
== END 2019-12-07 17:37 | disposition home or self-care (01) ==
LOC: EDUNIT# 14:51 → ER 14:52
DX: R51 Headache (principal); I10 Essential (primary) hypertension; G25.81 Restless legs syndrome; F32.9 Major depressive disorder, single episode, unspecified; E66.9 Obesity, unspecified; Z88.5 Allergy status to narcotic agent; Z88.0 Allergy status to penicillin; Z88.1 Allergy status to other antibiotic agents; Z87.891 Personal history of nicotine dependence; Z90.49 Acquired absence of other specified parts of digestive tract; Z86.010 Personal history of colon polyps; Z82.49 Family history of ischemic heart disease and other diseases of the circulatory system; Z85.528 Personal history of other malignant neoplasm of kidney

== ENCOUNTER 2020-01-21 11:58 | Emergency (ER) | payer MEDICARE, MEDICAID ==
[~2020-01-21] VITALS: Ht 160 cm; Wt 120.2 kg
[~2020-01-21 11:58] MED LIST changes: +HYDR-3812 PO; -HYDR-83 PO
--- NOTE | 2020-01-21 12:05 | NUR ---
ATTEMPT TO CALL PT BACK ET SHE WAS NOT IN THE WAITING ROOM
[2020-01-21 12:25] LABS: BILIRUBIN,URINE NEGATIVE (NEGATIVE); CLARITY,URINE CLEAR; COLOR,URINE YELLOW; GLUCOSE, URINE (UA) NEGATIVE (NEGATIVE); KETONES,URINE NEGATIVE (NEGATIVE); LEUKOCYTE ESTERASE ,URINE NEGATIVE (NEGATIVE); NITRITE,URINE NEGATIVE (NEGATIVE); PROTEIN,URINE NEGATIVE (NEGATIVE)
[2020-01-21 12:33] LABS: BACTERIA,URINE FEW /HPF; WBC,URINE RARE /HPF
[2020-01-21] MEDS ORDERED: NS IV 1000 ML 1,000 ML IV SCH (12:33)
--- NOTE | 2020-01-21 12:41 | ED Abdominal Pain ---
General Chief Complaint: Abdominal/GI Problems Stated Complaint: VOMITING/STOMACH PAIN/HEADACHE Nursing Triage Note: AMBULATED TO ROOM 06 WITHOUT DIFFICULTY. COMPLAINS OF HEADACHE SINCE SATURDAY AND ABDPAIN WITH N/V SINCE YESTERDAY. Sepsis Screen: No Definite Risk Source of Information: Patient Exam Limitations: No Limitations History of Present Illness Date Seen by Provider: Jan 21, 2020 Time Seen by Provider: 12:19 Initial Comments Patient presents ER by private conveyance from home with chief complaint of 4 days nausea vomiting, epigastric pain. She does not member the last time she had a bowel movement. She does have a history of pancreatitis but does not drink a lcohol. She has diabetes. She has had multiple EGDs by Dr. Nunez and [facility]. She also follows with Dr. Roman for general surgery. She's had multiple surgeries on her abdomen related to hernia repairs and mesh replacements and complications therefore. She also has had cholecystectomy, appendectomy. She has a history of adhesions resulting and bowel obstructions. She called her primary care doctor, Dr. Gibbs and she was out of town so the nurse suggested she could come out to the ER if her symptoms are not improving. She's been using Zofran 16 mg every 6 hours to control her nausea. She has a history of left nephrectomy and does not use NSAIDs. In the past she has tolerated fentanyl as long she is given some Benadryl as well. Allergies and Home Medications Allergies Coded Allergies: fentanyl (Verified Allergy, Unknown, 10/16/18) meperidine (Verified Allergy, Unknown, 10/16/18) penicillin G (Verified Allergy, Unknown, 10/16/18) vancomycin (Verified Adverse Reaction, Intermediate, severe itching, 10/26/19) Home Medications Acetaminophen 500 Mg Tablet, 1,000 MG PO Q8H PRN for PAIN-MILD (1-4), (Reported) Diphenhydramine HCl 25 Mg Capsule, 25 MG PO HS PRN for SLEEP, (Reported) Estradiol 1 Mg Tablet, 1 MG PO HS, (Reported) Hydrocodone/Acetaminophen 1 Each Tablet, 2 EACH PO Q6H PRN for PAIN-MILD (1-4), (Reported) Multivitamin 1 Each Tablet, 1 EACH PO DAILY, (Reported) Ondansetron 8 Mg Tab.rapdis, 8 MG PO Q8H PRN for NAUSEA/VOMITING, (Reported) Ropinirole HCl 4 Mg Tablet, 4 MG PO HS, (Reported) Scopolamine 1 Each Patch.td72, 1 EACH TD Q72H, (Reported) Sertraline HCl 50 Mg Tablet, 50 MG PO HS, (Reported) Patient Home Medication List Home Medication List Reviewed: Yes Review of Systems Review of Systems Constitutional: No chills, No fever EENTM: No Blurred Vision, No Double Vision Respiratory: Denies Cough, Denies Shortness of Air Cardiovascular: Denies Chest Pain, Denies Lightheadedness Gastrointestinal: See HPI, Abdominal Pain, Constipated; Denies Diarrhea; Nausea, Poor Fluid Intake, Vomiting Genitourinary: Denies Burning, Denies Discharge Musculoskeletal: No back pain, No joint pain Skin: No pruritus, No rash Psychiatric/Neurological: Denies Anxiety, Denies Depressed All Other Systems Reviewed Negative Unless Noted: Yes Past Wrcdbey-Zhjytw-Acwznv Hx Patient Social History Alcohol Use: Denies Use Recreational Drug Use: No Smoking Status: Current Everyday Smoker Type Used: Cigarettes 2nd Hand Smoke Exposure: No Recent Foreign Travel: No Contact w/Someone Who Travel: No Recent Infectious Disease Expo: No Recent Hopitalizations: No Immunizations Up To Date Tetanus Booster (TDap): Less than 5yrs PED Vaccines UTD: No Date of Pneumonia Vaccine: May 17, 2012 Date of Influenza Vaccine: Jul 03, 2012 Seasonal Allergies Seasonal Allergies: Yes (MILD) Past Medical History Surgeries: Yes (KNEE SCOPES X5, HERNIA X2) Abdominal, Adenoidectomy, Appendectomy, Gallbladder, 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, Nephrectomy, Orthopedic, Tonsillectomy Respiratory: Yes Asthma Currently Using CPAP: No Currently Using BIPAP: No Cardiac: Yes Hypertension Neurological: Yes (RESTLESS LEG SYNDROME; CHRONIC DAILY HEADACHE COMPLAINTS) Headaches /Migraines 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: Yes (HX ENDOMETRIOSIS ) 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: 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 Sexually Transmitted Disease: No HIV/AIDS: No Genitourinary: Yes (L KIDNEY REMOVED FOR TUMOR-MALIGNANT;) UTI-Chronic Gastrointestinal: Yes (CHRONIC ABDOMINAL PAIN AND NAUSEA/VOMTING COMPLAINTS) Abdominal Hernia, Gastroesophageal Reflux, Liver Disease/Jaundice, Obstructive Bowel, Pancreatitis, Polyps Musculoskeletal: Yes (COCCYX-REMOVED; MULTIPLE KNEE SURGERIES, ) Chronic Back Pain Endocrine: Yes (CHRONIC PANCREATITIS; OBESITY) HEENT: No Loss of Vision: Denies Hearing Impairment: Denies Cancer: Yes Kidney Did You Recieve Any Treatments: Yes What Type of Treatment Did You: Surgical Intervention Psychosocial: Yes Depression Integumentary: Yes Herpes Blood Disorders: No Adverse Reaction/Blood Tranf: No (N/A) Family Medical History Cardiovascular disease 19 FATHER Completed stroke 19 FATHER Diabetes mellitus 19 FATHER Hypercholesterolemia 19 FATHER 19 MOTHER Hypertension 19 FATHER 19 MOTHER Neoplasm 19 MOTHER Psychosocial problem 19 FATHER 19 MOTHER No Pertinent Family Hx, Cancer, Diabetes, Hypertension PSH: -RIGHT KNEE SCOPE X 5 -LEFT KNEE SCOPE X 2 -NASAL FRACTURE REPAIR -COCCYX REMOVAL -LEFT NEPHRECTOMY FOR MALIGNANCY -LEFT MID ABDOMEN INCISIONAL HERNIA REPAIR -DRAINAGE OF ABDOMINAL WALL ABSCESS -MULTIPLE EGD'S AND COLONOSCOPIES Physical Exam Vital Signs Vital Signs - First Documented 01/21/20 12:14 Temp 36.6 Pulse 75 Resp 16 B/P (MAP) 140/71 (94) Pulse Ox 98 O2 Delivery Room Air Capillary Refill : Less Than 3 Seconds Height/Weight/BMI Height: 5'3.00" Weight: 246lbs. 0oz. 111.517948kw; 46.00 BMI Method:Stated General Appearance: WD/WN, no apparent distress, obese HEENT: PERRL/EOMI, pharynx normal Neck: full range of motion, supple, normal inspection Respiratory: lungs clear, normal breath sounds, no respiratory distress Cardiovascular: normal peripheral pulses, regular rate, rhythm, no edema Gastrointestinal: normal bowel sounds, no organomegaly, tenderness (all 4 q uadrants are tender with well healed surgical scars and no masses palpable.) Extremities: normal range of motion, non-tender, normal inspection, normal capillary refill Neurologic/Psychiatric: alert, normal mood/affect, oriented x 3 Skin: normal color, warm/dry Progress/Results/Core Measures Results/Orders Lab Results Laboratory Tests Test 01/21/20 12:13 01/21/20 12:55 Range/Units Urine Color YELLOW Urine Clarity CLEAR Urine pH 7.0 5-9 Urine Specific [place] 1.015 L 1.016-1.022 Urine Protein NEGATIVE NEGATIVE Urine Glucose (UA) NEGATIVE NEGATIVE Urine Ketones NEGATIVE NEGATIVE Urine Nitrite NEGATIVE NEGATIVE Urine Bilirubin NEGATIVE NEGATIVE Urine Urobilinogen 0.2 < = 1.0 MG/DL Urine Leukocyte Esterase NEGATIVE NEGATIVE Urine RBC (Auto) NEGATIVE NEGATIVE Urine RBC NONE /HPF Urine WBC RARE /HPF Urine Squamous Epithelial Cells 10-25 H /HPF Urine Crystals NONE /LPF Urine Bacteria FEW H /HPF Urine Casts NONE /LPF Urine Mucus NEGATIVE /LPF Urine Culture Indicated NO White Blood Count 7.2 4.3-11.0 10^3/uL Red Blood Count 4.51 4.35-5.85 10^6/uL Hemoglobin 12.5 11.5-16.0 G/DL Hematocrit 38 35-52 % Mean Corpuscular Volume 84 80-99 FL Mean Corpuscular Hemoglobin 28 25-34 PG Mean Corpuscular Hemoglobin Concent 33 32-36 G/DL Red Cell Distribution Width 14.6 H 10.0-14.5 % Platelet Count 224 130-400 10^3/uL Mean Platelet Volume 9.5 7.4-10.4 FL Neutrophils (%) (Auto) 57 42-75 % Lymphocytes (%) (Auto) 33 12-44 % Monocytes (%) (Auto) 5 0-12 % Eosinophils (%) (Auto) 5 0-10 % Basophils (%) (Auto) 0 0-10 % Neutrophils # (Auto) 4.1 1.8-7.8 X 10^3 Lymphocytes # (Auto) 2.4 1.0-4.0 X 10^3 Monocytes # (Auto) 0.3 0.0-1.0 X 10^3 Eosinophils # (Auto) 0.3 0.0-0.3 10^3/uL Basophils # (Auto) 0.0 0.0-0.1 10^3/uL Sodium Level 141 135-145 MMOL/L Potassium Level 4.1 3.6-5.0 MMOL/L Chloride Level 106 98-107 MMOL/L Carbon Dioxide Level 22 21-32 MMOL/L Anion Gap 13 5-14 MMOL/L Blood Urea Nitrogen 17 7-18 MG/DL Creatinine 0.79 0.60-1.30 MG/DL Estimat Glomerular Filtration Rate > 60 BUN/Creatinine Ratio 22 Glucose Level 95 70-105 MG/DL Calcium Level 9.1 8.5-10.1 MG/DL Corrected Calcium 9.1 8.5-10.1 MG/DL Magnesium Level 2.0 1.6-2.4 MG/DL Total Bilirubin 0.3 0.1-1.0 MG/DL Aspartate Amino Transf (AST/SGOT) 44 H 5-34 U/L Alanine Aminotransferase (ALT/SGPT) 38 0-55 U/L Alkaline Phosphatase 61 40-136 U/L C-Reactive Protein High Sensitivity 1.81 H 0.00-0.50 MG/DL Total Protein 7.4 6.4-8.2 GM/DL Albumin 4.0 3.2-4.5 GM/DL Amylase Level 64 25-125 U/L Lipase 51 8-78 U/L My Orders Orders - MAKAYLA HAWKINS Ua Culture If Indicated (01/21/20 12:07) Cbc With Automated Diff (01/21/20 12:33) Comprehensive Metabolic Panel (01/21/20 12:33) Hs C Reactive Protein (01/21/20 12:33) Lipase (01/21/20 12:33) Fentanyl Injection (Sublimaze Injection (01/21/20 12:45) Diphenhydramine Injection (Benadryl Inje (01/21/20 12:45) Promethazine Injection (Phenergan Injec (01/21/20 12:45) Ed Iv/Invasive Line Start (01/21/20 12:33) Ns Iv 1000 Ml (Sodium Chloride 0.9%) (01/21/20 12:33) Magnesium (01/21/20 12:33) Amylase (01/21/20 12:33) Ondansetron Injection (Zofran Injectio (01/21/20 14:15) Ct Abdomen/Pelvis Wo (01/21/20 14:50) Ng Tube Insert & Assessment (01/21/20 14:52) Medications Given in ED Current Medications Medications Dose Ordered Sig/Neal Route Start Time Stop Time Status Last Admin Dose Admin Diphenhydramine HCl 25 mg ONCE ONCE IVP 01/21/20 12:45 01/21/20 12:46 DC 01/21/20 13:03 25 MG Fentanyl Citrate 50 mcg ONCE ONCE IVP 01/21/20 12:45 01/21/20 12:46 DC 01/21/20 13:03 50 MCG Ondansetron HCl 8 mg ONCE ONCE IVP 01/21/20 14:15 01/21/20 14:16 DC 01/21/20 14:19 8 MG Promethazine HCl 25 mg ONCE ONCE IVP 01/21/20 12:45 01/21/20 12:46 DC 01/21/20 13:03 25 MG Vital Signs/I&O 01/21/20 12:14 Temp 36.6 Pulse 75 Resp 16 B/P (MAP) 140/71 (94) Pulse Ox 98 O2 Delivery Room Air Blood Pressure Mean: 94 Progress Progress Note #1: Time: 12:41 Progress Note Plan a bag of fluids, Phenergan, Benadryl, fentanyl as well as labs including lipase. If Her pancreas looks okay then we can consider getting a CT of the abdomen and pelvis looking for bowel obstruction. Progress Note #2: Time: 14:51 Progress Note Patient got no relief from initial Phenergan so 8 mg Zofran IV were added. Patient remarks she only had marginal improvement in her nausea and is still gotten up to go to the bathroom to vomit a couple times. Plan to put an NG tube in and then get a CT of her abdomen and pelvis without IV contrast. Diagnostic Imaging Diagonstic Imaging: CT Plain Films/CT/US/NM/MRI: abdomen, pelvis Comments NAME: JAYLYN DELGADO [facility] REC#: [id number] PT STATUS: REG ER : 1985 PHYSICIAN: MAKAYLA HAWKINS MD ADMIT DATE: 01/21/20/ER Signed Date of Exam:01/21/20 CT ABDOMEN/PELVIS WO PROCEDURE: CT abdomen and pelvis without contrast. TECHNIQUE: Multiple contiguous axial images were obtained through the abdomen and pelvis without the use of intravenous contrast. Auto Exposure Controls were utilized during the CT exam to meet ALARA standards for radiation dose reduction. INDICATION: Nausea and vomiting and abdominal pain for 24 hours. COMPARISON: Correlation is made with prior CT from 04/07/2019. FINDINGS: Lung bases demonstrates an area of somewhat flat but rounded thickening at the level of the left hemidiaphragm measuring 18 mm. This has been present on multiple prior CTs and appears to be similar. Liver remains enlarged at 25.6 cm. There is diffuse low density consistent with hepatic steatosis. Spleen is enlarged at 15.6 cm. Rounded densities anterior to the spleen are noted which may be owing to splenosis. The gallbladder is surgically absent. No biliary ductal dilatation is seen. The pancreas is unremarkable. No adrenal mass is detected. The left kidney is surgically absent. The right kidney is unremarkable. No calculi or hydronephrosis is seen. The aorta is non-aneurysmal. Bowel loops are normal caliber. There is no obstruction. No free fluid or fluid collection is seen. Bladder is unremarkable. The uterus is surgically absent. IMPRESSION: 1. Stable CT abdomen and pelvis since prior exam from 04/07/2019. Hepatosplenomegaly with hepatic steatosis is stable. No acute feature is detected. Dictated by: Dictated on workstation # [id number] Dict: 01/21/20 1532 Trans: 01/21/20 1601 [facility] [id number] Interpreted by: RAZA GOLD MD Electronically signed by: RAZA GOLD MD 01/21/20 1601 Reviewed: Reviewed by Me Departure Impression Primary Impression: Ileus Disposition: HOME, SELF-CARE Condition: Stable Departure-Patient Inst. Decision time for Depature: 16:18 Referrals: CARMEN GIBBS MD (PCP/Family) Primary Care Physician Patient Instructions: Postoperative Ileus (DC) Add. Discharge Instructions: Because all the scar tissue you have you may have developed a spontaneous ileus. Alternatively a virus can cause ileus. Ileus is when your intestines fall asleep and did not want to move. Stick to a liquid diet when you're not having nausea and use Zofran 1-2 tablets on the tongue every 6 hours as necessary. Phenergan 1 tablet every 6 hours as necessary for nausea that persists. Return to the ER if you're becoming dehydrated or cannot control your symptoms. All discharge instructions reviewed with patient and/or family. Voiced understanding. Scripts Promethazine HCl (Promethazine Tablet) 25 Mg Tablet 25 MG PO Q6H PRN for NAUSEA/VOMITING for 7 Days, #20 TAB 0 Refills Prov: MAKAYLA HAWKINS 01/21/20 Ondansetron HCl (Ondansetron HCl) 8 Mg Tablet 8-16 MG PO Q6H PRN for NAUSEA-1ST LINE, #30 TAB 0 Refills Prov: MAKAYLA HAWKINS 01/21/20 MAKAYLA HAWKINS Jan 21, 2020 12:41
[2020-01-21] MEDS ORDERED: fentaNYL INJECTION 100 MCG/2 ML AMP IVP ONE (12:45)
[2020-01-21] MEDS ORDERED: PROMETHAZINE INJ 25 MG/ML (PHENERGAN) AMP IVP ONE (12:45)
[2020-01-21] MEDS ORDERED: diphenhydrAMINE 50 MG/ML INJ (BENADRYL) IVP ONE (12:45)
[2020-01-21 13:06] LABS: BASOPHILS % (AUTO) 0 % (0-10); EOSINOPHILS # (AUTO) 0.3 10^3/uL (0.0-0.3); EOSINOPHILS % (AUTO) 5 % (0-10); HEMATOCRIT 38 % (35-52); HEMOGLOBIN 12.5 G/DL (11.5-16.0); LYMPHOCYTES # (AUTO) 2.4 X 10^3 (1.0-4.0); LYMPHOCYTES % (AUTO) 33 % (12-44); MEAN CORPUSCULAR HEMOGLOBIN 28 PG (25-34); MEAN CORPUSCULAR HGB CONC 33 G/DL (32-36); MEAN CORPUSCULAR VOLUME 84 FL (80-99); MEAN PLATELET VOLUME 9.5 FL (7.4-10.4); MONOCYTES # (AUTO) 0.3 X 10^3 (0.0-1.0); MONOCYTES % (AUTO) 5 % (0-12); NEUTROPHILS # (AUTO) 4.1 X 10^3 (1.8-7.8); NEUTROPHILS % (AUTO) 57 % (42-75); PLATELET COUNT 224 10^3/uL (130-400); RED CELL DISTRIBUTION WIDTH 14.6 % (10.0-14.5); WHITE BLOOD COUNT 7.2 10^3/uL (4.3-11.0)
[2020-01-21 13:30] LABS: ALANINE AMINOTRANSFERASE 38 U/L (0-55); ALKALINE PHOSPHATASE 61 U/L (40-136); AMYLASE 64 U/L (25-125); BILIRUBIN,TOTAL 0.3 MG/DL (0.1-1.0); BUN/CREATININE RATIO 22; CALCIUM 9.1 MG/DL (8.5-10.1); CARBON DIOXIDE 22 MMOL/L (21-32); CHLORIDE 106 MMOL/L (98-107); CREATININE SERUM 0.79 MG/DL (0.60-1.30); GFR ESTIMATED > 60; GLUCOSE 95 MG/DL (70-105); LIPASE 51 U/L (8-78); POTASSIUM 4.1 MMOL/L (3.6-5.0); SODIUM 141 MMOL/L (135-145); TOTAL PROTEIN 7.4 GM/DL (6.4-8.2)
--- NOTE | 2020-01-21 14:10 | NUR ---
PT STATES SHE STILL FEELS NAUSEA IN HER STOMACH. NOTIFIED.
--- NOTE | 2020-01-21 14:14 | NUR ---
DR HAWKINS IN ROOM TALKING WITH PT..
[2020-01-21] MEDS ORDERED: ONDANSETRON 4 MG/2 ML (SDV) Z0FRAN IVP ONE (14:15)
--- NOTE | 2020-01-21 14:49 | NUR ---
PT STATES HER NAUSEA IS A LITTLE BETTER BUT IT IS STILL THERE. DR NOTIFIED.
--- NOTE | 2020-01-21 14:50 | NUR ---
DR HAWKINS IN ROOM TALKING TO THE PT.
--- NOTE | 2020-01-21 15:46 | Diagnostic Imaging Report ---
PROCEDURE: CT abdomen and pelvis without contrast. TECHNIQUE: Multiple contiguous axial images were obtained through the abdomen and pelvis without the use of intravenous contrast. Auto Exposure Controls were utilized during the CT exam to meet ALARA standards for radiation dose reduction. INDICATION: Nausea and vomiting and abdominal pain for 24 hours. COMPARISON: Correlation is made with prior CT from 04/07/2019. FINDINGS: Lung bases demonstrates an area of somewhat flat but rounded thickening at the level of the left hemidiaphragm measuring 18 mm. This has been present on multiple prior CTs and appears to be similar. Liver remains enlarged at 25.6 cm. There is diffuse low density consistent with hepatic steatosis. Spleen is enlarged at 15.6 cm. Rounded densities anterior to the spleen are noted which may be owing to splenosis. The gallbladder is surgically absent. No biliary ductal dilatation is seen. The pancreas is unremarkable. No adrenal mass is detected. The left kidney is surgically absent. The right kidney is unremarkable. No calculi or hydronephrosis is seen. The aorta is non-aneurysmal. Bowel loops are normal caliber. There is no obstruction. No free fluid or fluid collection is seen. Bladder is unremarkable. The uterus is surgically absent. IMPRESSION: 1. Stable CT abdomen and pelvis since prior exam from 04/07/2019. Hepatosplenomegaly with hepatic steatosis is stable. No acute feature is detected. Dictated by: Dictated on workstation # [id number]
--- NOTE | 2020-01-21 16:20 | NUR ---
ZIYAD RICHMOND PER ORDER.
[2020-01-21] MEDS ORDERED: PROM25TA14 PO (16:21)
[2020-01-21] MEDS ORDERED: ONDA8TAB15 PO (16:21)
[2020-01-21 16:43] VITALS: BP 134/90
--- OUTSIDE RECORDS SUMMARY | 2020-01-21 18:01 | XMS REPORT | Clinical Summary ---
Author Author [facility] Organization [facility] Address Unknown Phone Unavailable Care Team Providers Care Director Of Maintenance Name Role Phone Michael Sutton MD Unavailable Unavailable Mary Whittington MD PCP NjJessica weaver AUTO RADIATOR SPECIALIST-OFFLINE CUTTER Unavailable Maggie Puente Unavailable Unavailable Mary Telles AUTO RADIATOR SPECIALIST Unavailable [phone] Bam Ritter MD Unavailable Unavailable Radha Bo POWDER ROOM ATTENDANT Unavailable Unavailable Jose Sanchez MD Unavailable Source Comments Some departments are not documenting in the electronic medical record. If you d o not see the information that you expected, contact [facility] Information in [facility] Health Information Management department at [phone] for further assistan ce in locating additional records.[facility] Allergies Comments Active Allergy Reactions Severity [...] cyanocobalamin (VITAMIN INJECT 1 ML 1 mL B-12, RUBRAMIN) 1,000 INTRAMUSCULAR 9 mcg/mL LY [...] Active pantoprazole DR Take one 30 tablet (PROTONIX) 40 mg tablet by 0 tabletIndications: mouth daily. Epigastric abdominal pain, Nausea and vomiting, intractability of vomiting not specified, unspecified vomiting type Active pregabalin (LYRICA) 25 mg Take one 60 capsule 3 capsuleIndications: capsule by 0 Chronic pancreatitis, mouth twice unspecified pancreatitis daily. type (HCC), Epigastric abdominal pain Active linaclotide (LINZESS) 290 Take one 30 capsule mcg capsuleIndications: capsule by 0 Constipation, unspecified mouth daily constipation type 30 minutes before breakfast. Active ferrous sulfate (IRON PO) Take by 0 mouth. Active ergocalciferol (vitamin Take by 0 D2) (VITAMIN D PO) mouth. 01/03/2020 cyanocobalamin (RUBRAMIN) Inject 1 mL 3 mL 3 1,000 mcg/mL into the 0 injectionIndications: muscle every Medication monitoring 30 days for encounter 90 days. Active Problems Problem Noted Date Other chronic pancreatitis 01/14/2018 Overview: [id number] Intractable vomiting with nausea 01/14/2018 Overview: 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 Blood Pressure 87 06/29/2019 2:17 PM ELECTRONICS UTILITY WORKER Pulse 36.6 C (97.9 F) 06/29/2019 2:17 PM ELECTRONICS UTILITY WORKER Temperature 18 05/19/2018 1:06 PM ELECTRONICS UTILITY WORKER Respiratory Rate 96% 08/22/2018 8:53 AM ELECTRONICS UTILITY WORKER Oxygen Saturation - - Inhaled Oxygen Concentration [...] Medicaid [place] [employer] xxxxxxxxxxx 2019-P [facility] -[id number] Advance Directives Patient Diet Technician Registered Explanation Type Date Recorded Advance 04/10/2017 8:47 AM Directive/DPOA Date Inactivated Comments Code Status Date Activated 04/11/2017 4:57 PM Full Code 04/10/2017 5:31 PM Provider has discussed Code Status No, discussion no t w/Patient or Family? necessary based on Dx
--- OUTSIDE RECORDS SUMMARY | 2020-01-21 18:02 | XMS REPORT | Encounter Summary ---
Author Author [facility] Organization [facility] Address Unknown Phone Unavailable Care Team Providers Care Engineer Systems Name Role Phone Michael Sutton MD Unavailable Unavailable Mary Whittington MD PCP Jessica Valera PATCH SANDER-UTILIZATION MANAGER Unavailable Maggie Puente Unavailable Unavailable Mary Telles PATCH SANDER Unavailable [phone] Bam Ritter MD Unavailable Unavailable Radha Bo HYDROCHLORIC MANUFACTURING SUPERVISOR Unavailable Unavailable Jose Sanchez MD Unavailable Reason for Referral * Consult, Test & Treat (Routine) Referred By Contact Referred To Contact Status Reason Specialty Diagnoses / Procedures Randy Nunez MD [address] [facility] [address] [place] [address] Glenn Sanchez DO [address] [place] [address] New Request Specialty Services Diagnoses Required Melena Gastroesophageal reflux disease without esophagitis Other constipation Reason for Visit * Reason Comments Test Encounter Details Care Team Description Date Type Department Randy Nunez MD [address] [facility] [address] [place] [address] [phone] Test 07/28/2019 Telephone [facility] [address] [place] [address] Social History Date Tobacco Use [...] Arleen Leone RN - 08/05/2019 9:02 AM DISTRICT MANAGER IN TRAINING Follow-up call to Dr. Sanchez's office and spoke with Mariposa. Patient will have off ice consultation 08/20/2019 and then will schedule procedures after seen. RICT MANAGER IN TRAINING * Telephone Encounter - Arleen Leone RN - 07/28/2019 2:20 PM DISTRICT MANAGER IN TRAINING Dr. Sanchez, Surgeon Office in [place], [place] request for EGD/Colonoscopy order as referenced during recent appointment with Jessica Valera NP. Order entered and fa xed to [phone]. Call back number is [phone] Sanchez. RICT MANAGER IN TRAINING documented in this encounter Plan of Treatment [...]
--- OUTSIDE RECORDS SUMMARY | 2020-01-21 18:02 | XMS REPORT | Encounter Summary ---
Author Author [facility] Organization [facility] Address Unknown Phone Unavailable Care Team Providers Care Virtual Recruiter Name Role Phone Michael Sutton MD Unavailable Unavailable Mary Whittington MD PCP Jessica Valera WELDING ENGINEER-GLOVE SEWER Unavailable Maggie Puente Unavailable Unavailable Mary Telles WELDING ENGINEER Unavailable [phone] Bma Ritter MD Unavailable Unavailable Radha Bo LPN Unavailable Unavailable Jose Sanchez MD Unavailable Reason for Visit * Reason Comments Medication Refill Encounter Details Care Team Description Date Type Department Randy Nunez MD [address] [facility] [address] [place] [address] Medication monitoring encounter 10/05/2019 Refill [facility] [address] [place] [address] Social History Date Tobacco Use [...]
--- OUTSIDE RECORDS SUMMARY | 2020-01-21 18:02 | XMS REPORT | Encounter Summary ---
Author Author [facility] Organization [facility] Address Unknown Phone Unavailable Care Team Providers Care Carpenter [employer] Name Role Phone Michael Sutton MD Unavailable Unavailable Mary Whittington MD PCP Jessica Valera AIRCRAFT ASSEMBLER-[employer]URBINE MECHANIC Unavailable Maggie Puente Unavailable Unavailable RobertMary Deutsch AIRCRAFT ASSEMBLER Unavailable [phone] Bam Ritter MD Unavailable Unavailable Radha Bo DREDGE BOAT ENGINEER Unavailable Unavailable Jose Sanchez MD Unavailable Reason for Visit * Reason Comments Abdominal pain Abdominal Distention Encounter Details Care Team Description Date Type Department Randy Nunez MD [address] [facility] [address] [place] [address] Constipation, unspecified constipation t ype (Primary Dx); Nausea and vomiting, intractability of vomiting not specified, unspecified vomiting type; Chronic pancreatitis, unspecified pancreatitis type (HCC) 09/30/2019 Office Visit [facility] [address] [place] [address] Social History Date Tobacco Use [...] 11:00 AM CDT Call my nurse at [phone] if you have any troubles or questions. [...] to treat them and their agreement to [facility] policy and NPP via this [...] colonoscopy was performed by Dr. Daniel in [facility] on 07/03/2017 which showed grade 2 [...] had C. diff in 11/2017 treated in [place], [place] and also follow s with [facility] in [place], [place] who are also monitoring a pu [...] follow closely with [facility], in [facility] a. She has plans to follow-up [...] total abdominal hysterectomy and oophorectomy in [facility] 2012. 3. Status post cholecystectomy (2006). [...] Derek mccoy with [facility] [place]. Scheduled for follow-up with them santiago negrete [...] to have EGD and colonoscopy locally in [place] under the dire ction of the surgeon. 6. Continue oncology follow-up in [place] as scheduled. 7. Follow-up in 3 months or sooner if need be. I have asked her to contact us with any troubles in the interim. I spent 25 minutes with the patient in a [id number] manner today, over 50% of the time was spent counseling and coordinating care. documented in this encounter Plan of Treatment Not on filedocumented as of this encounter Visit Diagnoses Diagnosis Constipation, unspecified constipation type Nausea and vomiting, intractability of vomiting not specified, unspecified vomiting type Chronic pancreatitis, unspecified pancr eatitis type (HCC) documented in this encounter
--- OUTSIDE RECORDS SUMMARY | 2020-01-21 18:02 | XMS REPORT ---
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 Z20.2 [facility] [address] [place] [id number] [address] [place] [address] October, STD exposure Z20.2 [facility] [address] [place] [id number] [address] [place] [address] October, Chronic post-traumatic stres s disorder (PTSD) F43.12 ; Generalized social phobia F40.11 ; Trichotillomania F63.3 and Restless leg syndrome G25.81 [facility] [address] [facility] [id number] [address] [place] [address] October, [facility] [address] [place] [id number] [address] [place] [address] Sep, [facility] [address] [facility] [id number] [address] [place] [address] Aug, [facility] [address] [place] [id number] [address] [place] [address] Aug, [facility] [address] [place] [id number] [address] [place] [address] Aug, Neck mass R22.1 [place] [address] [place] [address] 03 Aug, 2016 Atelectasis J98.11 [place] [address] [place] [id number] [address] [place] [address] 28 Jul, 2016 Hyperlipidemia, mixed E78.2 ; Atypical pneumonia J18.9 and Neck mass R22.1 [place] [address] [address] 15 Jul, 2016 Hemoptysis R04.2 [place] [address] [address] 08 Jul, 2016 Acute non-recurrent pansinus itis J01.40 ; Hemoptysis R04.2 ; Polydipsia R63.1 and Malaise R53.81 [facility] [place] [address] [place] [id number] [address] [place] [address] May, Other viral agents as the ca use of diseases classified elsewhere B97.89 and Acute upper respiratory infection, unspecified J06.9 [facility] [place] [id number] [address] [place] [address] Mar, Nausea R11.0 [facility] [place] [address] [place] [id number] [place] [address] 28 Dec, 2015 Hives L50.9 [place] [address] [place] [id number] [address] [place] [address] 14 Dec, 2015 [facility] [place] [address] [address] 10 Dec, 2015 Cutaneous abscess of limb, u nspecified L02.419 ; Cellulitis of unspecified part of limb L03.119 ; Encounter for incision and drainage procedure Z01.89 and Encounter for recheck of abscess following i ncision and drainage Z09 [facility] [place] [address] [place] [id number] [address] [place] [address] 09 Dec, 2015 Abscess of leg, right L02.41 5 [place] [address] [place] [id number] [address] [place] [address] 08 Dec, 2015 Cellulitis of unspecified pa rt of limb L03.119 and Cutaneous abscess of limb, unspecified L02.419 [place] [address] [facility] [id number] [address] [place] [address] Dec, [place] [address] [place] [id number] [place] [address] Dec, [facility] [place] [address] [place] [id number] [place] [address] Aug, [place] [address] [address] Aug, [facility] [place] [address] [address] Jul, Pain in unspecified wrist M2 5.539 and Back pain, thoracic M54.6 [facility] [place] [address] [address] Jun, Strain of right wrist, initi al encounter S66.911A [place] [address] [address] Jun, Chronic pancreatitis, unspec ified pancreatitis type K86.1 ; Hirsuties L68.0 ; Morbid (severe) obesity due to excess calories E66.01 ; Chronic pancreatitis K86.1 and Asthma J45.909 [place] [address] [place] [id number] [address] [place] [address] May, [place] [address] [place] [address] May, Hyperlipidemia, mixed E78.2 and Muscle spasm of back M62.830 [place] [address] [place] [id number] [address] [place] [address] Apr, [place] [address] [address] Apr, Torticollis M43.6 [facility] [address] [id number] [address] [place] [address] Apr, Right-sided thoracic back pa in M54.6 [facility] [address] [id number] [address] [place] [address] Mar, Rash R21 [facility] [address] [id number] [address] [place] [address] Mar, [facility] [address] [id number] [address] [place] [address] Jan, [facility] [address] [facility] [id number] [address] [place] [address] Dec, [facility] [address] [facility] [id number] [address] [place] [address] Dec, Urinary frequency 788.41 and Nocturia more than twice per night 788.43 [facility] [address] [id number] [address] [place] [address] Nov, [facility] [address] [facility] [id number] [address] [place] [address] Nov, [facility] [address] [facility] [id number] [address] [place] [address] Nov, Abdominal pain 789.00 [facility] [address] [facility] [id number] [address] [place] [address] October, TDAP DX V06.1 [facility] [address] [id number] [address] [place] [address] October, [facility] [address] [facility] [id number] [address] [place] [address] October, Disturbance of skin sensatio n 782.0 ; Wrist pain, right 719.43 ; Hyperlipidemia 272.4 and Skin lesion of face 709.9 [facility] [address] [facility] [id number] [address] [place] [address] 14 Sep, 2014 [facility] [address] [id number] [address] [place] [address], [place] [address] 13 Sep, 2014 [facility] [address] [id number] [address] [place] [address], [place] [address] 26 Aug, 2014 [facility] [address] [id number] [address] [place] [address], [place] [address] 26 Aug, 2014 [facility] [address] [id number] [address] [place] [address], [place] [address] 23 Aug, 2014 [facility] [address] [id number] [address] [place] [address], [place] [address] 23 Aug, 2014 [facility] [address] [id number] [address] [place] [address], [place] [address] 16 Aug, 2014 [facility] [address] [id number] [address] [place] [address], [place] [address] 16 Aug, 2014 [facility] [address] [id number] [address] [place] [address], [place] [address] 14 Aug, 2014 [facility] [address] [id number] [address] [place] [address], [place] [address] 14 Aug, 2014 [facility] [address] [id number] [address] [place] [address], [place] [address] 11 Aug, 2014 [facility] [address] [id number] [address] [place] [address], [place] [address] 11 Aug, 2014 [facility] [address] [id number] [address] [place] [address], [place] [address] 04 Aug, 2014 [facility] [address] [id number] [address] [place] [address], [place] [address] 04 Aug, 2014 [facility] [address] [id number] [address] [place] [address], [place] [address] 03 Aug, 2014 [facility] [address] [id number] [address] [place] [address], [place] [address] 03 Aug, 2014 [facility] [address] [id number] [address] [place] [address], [place] [address] Jul, 2014 [facility] [address] [id number] [address] [place] [address], [place] [address] Jul, [facility] [address] [id number] [address] [place] [address], [place] [address] Jul, 2014 [facility] [address] [id number] [address] [place] [address], [place] [address] Jul, 2014 [facility] [address] [id number] [address] [place] [address], [place] [address] Jul, [facility] [address] [id number] [address] [place] [address], [place] [address] Jul, [facility] [address] [id number] [address] [place] [address], [place] [address] Jun, [facility] [address] [id number] [address] [place] [address], [place] [address] Jun, [facility] [address] [id number] [address] [place] [address], [place] [address] Jun, [facility] [address] [id number] [address] [place] [address], [place] [address] Jun, [facility] [address] [id number] [address] [place] [address], [place] [address] Jun, [facility] [address] [id number] [address] [place] [address], [place] [address] Jun, [facility] [address] [id number] [address] [place] [address], [place] [address] Jun, [facility] [address] [id number] [address] [place] [address], [place] [address] Jun, [facility] [address] [id number] [address] [place] [address], [place] [address] May, [facility] [address] [id number] [address] [place] [address], [place] [address] May, [facility] [address] [id number] [address] [place] [address], [place] [address] May, [facility] [address] [id number] [address] [place] [address], [place] [address] May, [facility] [address] [id number] [address] [place] [address], [place] [address] May, [facility] [address] [id number] [address] [place] [address], [place] [address] May, [facility] [address] [id number] [address] [place] [address], [place] [address] May, [facility] [address] [id number] [address] [place] [address], [place] [address] May, [facility] [address] [id number] [address] [place] [address], [place] [address] May, [facility] [address] [id number] [address] [place] [address], [place] [address] May, [facility] [address] [id number] [address] [place] [address], [place] [address] May, [facility] [address] [id number] [address] [place] [address], [place] [address] May, [facility] [address] [id number] [address] [place] [address], [place] [address] Apr, [facility] [address] [id number] [address] [place] [address], [place] [address] Apr, [facility] [address] [id number] [address] [place] [address], [place] [address] Apr, [facility] [address] [id number] [address] [place] [address], [place] [address] Apr, [facility] [address] [id number] [address] [place] [address], [place] [address] Apr, [facility] [address] [id number] [address] [place] [address], [place] [address] 24 Apr, 2014 [facility] [address] [id number] [address] [place] [address], [place] [address] 14 Apr, 2014 [facility] [address] [id number] [address] [place] [address], [place] [address] 14 Apr, 2014 [facility] [address] [id number] [address] [place] [address], [place] [address] Apr, [facility] [address] [id number] [address] [place] [address], [place] [address] Apr, [facility] [address] [id number] [address] [place] [address], [place] [address] Apr, [facility] [address] [id number] [address] [place] [address], [place] [address] Apr, [facility] [address] [id number] [address] [place] [address], [place] [address] Mar, [facility] [address] [id number] [address] [place] [address], [place] [address] Mar, [facility] [address] [id number] [address] [place] [address], [place] [address] Mar, [facility] [address] [id number] [address] [place] [address], [place] [address] 02 Mar, 2014 [facility] [address] [id number] [address] [place] [address], [place] [address] 10 Feb, 2013 [facility] [address] [id number] [address] [place] [address], [place] [address] 10 Feb, 2013 [facility] [address] [id number] [address] [place] [address], [place] [address] 05 Sep2013 [facility] [address] [id number] [address] [place] [address], [place] [address] 05 Sep, 2013 [facility] [address] [id number] [address] [place] [address], [place] [address] Feb, [facility] [address] [id number] [address] [place] [address], [place] [address] Feb, [facility] [address] [id number] [address] [place] [address], [place] [address] Jan, [facility] [address] [id number] [address] [place] [address], [place] [address] Jan, [facility] [address] [id number] [address] [place] [address], [place] [address] Jan, [facility] [address] [id number] [address] [place] [address], [place] [address] Jan, [facility] [address] [id number] [address] [place] [address], [place] [address] Jan, [facility] [address] [id number] [address] [place] [address], [place] [address] Jan, [facility] [address] [id number] [address] [place] [address], [place] [address] Jan, [facility] [address] [id number] [address] [place] [address], [place] [address] Jan, [facility] [address] [id number] [address] [place] [address], [place] [address] Jan, [facility] [address] [id number] [address] [place] [address], [place] [address] Jan, [facility] [address] [id number] [address] [place] [address], [place] [address] Jan, [facility] [address] [id number] [address] [place] [address], [place] [address] Jan, [facility] [address] [id number] [address] [place] [address], [place] [address] Jan, [facility] [address] [id number] [address] [place] [address], [place] [address] Jan, [facility] [address] [id number] [address] [place] [address], [place] [address] Dec, [facility] [address] [id number] [facility] [place] [address] Dec, [facility] [address] [id number] [address] [place] [address], [place] [address] Dec, [facility] [address] [id number] [address] [place] [address], [place] [address] Dec, [facility] [address] [id number] [address] [place] [address], [place] [address] Nov, [facility] [address] [id number] [address] [place] [address], [place] [address] Nov, [facility] [address] [id number] [address] [place] [address], [place] [address] Nov, [facility] [address] [id number] [address] [place] [address], [place] [address] Nov, [facility] [address] [id number] [address] [place] [address], [place] [address] Nov, [facility] [address] [id number] [address] [place] [address], [place] [address] October, [facility] [address] [id number] [address] [place] [address], [place] [address] October, [facility] [address] [id number] [address] [place] [address], [place] [address] October, [facility] [address] [id number] [address] [place] [address], [place] [address] October, [facility] [address] [id number] [address] [place] [address], [place] [address] October, [facility] [address] [id number] [address] [place] [address], [place] [address] October, [facility] [address] [id number] [address] [place] [address], [place] [address] October, [facility] [address] [id number] [address] [place] [address], [place] [address] 14 Oct, 2013 [facility] [address] [id number] [address] [place] [address], [place] [address] October, [facility] [address] [id number] [address] [place] [address], [place] [address] October, [facility] [address] [id number] [address] [place] [address], [place] [address] October, [facility] [address] [id number] [address] [place] [address], [place] [address] October, [facility] [address] [id number] [address] [place] [address], [place] [address] October, [facility] [address] [id number] [address] [place] [address], [place] [address] October, [facility] [address] [id number] [address] [place] [address], [place] [address] Sep, [facility] [address] [id number] [address] [place] [address], [place] [address] Sep, [facility] [address] [id number] [address] [place] [address], [place] [address] Sep, [facility] [address] [id number] [address] [place] [address], [place] [address] Sep, [facility] [address] [id number] [address] [place] [address], [place] [address] Sep, [facility] [address] [id number] [address] [place] [address], [place] [address] Sep, [facility] [address] [id number] [address] [place] [address], [place] [address] Sep, [facility] [address] [id number] [address] [place] [address], [place] [address] Sep, [facility] [address] [id number] [address] [place] [address], [place] [address] Sep, [facility] [address] [id number] [facility] [place] [address] Sep, [facility] [address] [id number] [address] [place] [address], [place] [address] Sep, [facility] [address] [id number] [address] [place] [address], [place] [address] Sep, [facility] [address] [id number] [address] [place] [address], [place] [address] Sep, [facility] [address] [id number] [address] [place] [address], [place] [address] Sep, [facility] [address] [id number] [address] [place] [address], [place] [address] Sep, [facility] [address] [id number] [address] [place] [address], [place] [address] Aug, [facility] [address] [id number] [address] [place] [address], [place] [address] Aug, [facility] [address] [id number] [address] [place] [address], [place] [address] Aug, [facility] [address] [id number] [address] [place] [address], [place] [address] Aug, [facility] [address] [id number] [address] [place] [address], [place] [address] Jul, [facility] [address] [id number] [address] [place] [address], [place] [address] Jul, [facility] [address] [id number] [address] [place] [address], [place] [address] Jul, [facility] [address] [id number] [address] [place] [address], [place] [address] Jul, [facility] [address] [id number] [address] [place] [address], [place] [address] Jun, [facility] [address] [id number] [address] [place] [address], [place] [address] 15 Jun, 2013 [facility] [address] [id number] [address] [place] [address], [place] [address] 15 Jun, 2013 [facility] [address] [id number] [address] [place] [address], [place] [address] 15 Jun, 2013 [facility] [address] [id number] [address] [place] [address], [place] [address] 10 Jun, 2013 [facility] [address] [id number] [address] [place] [address], [place] [address] Jun, [facility] [address] [id number] [address] [place] [address], [place] [address] Jun, [facility] [address] [id number] [address] [place] [address], [place] [address] 08 Jun, 2013 [facility] [address] [id number] [address] [place] [address], [place] [address] 20 May, 2013 [facility] [address] [id number] [address] [place] [address], [place] [address] 20 May, 2013 [facility] [address] [id number] [address] [place] [address], [place] [address] 18 May, 2013 [facility] [address] [id number] [address] [place] [address], [place] [address] 18 May, 2013 [facility] [address] [id number] [address] [place] [address], [place] [address] 17 May, 2013 [facility] [address] [id number] [address] [place] [address], [place] [id number] 17 May, 2013 [facility] [address] [id number] [address] [place] [address], [place] [address] 17 May, 2013 [facility] [address] [id number] [address] [place] [address], [place] [address] 17 May, 2013 [facility] [address] [id number] [address] [place] [address], [place] [address] 16 May, 2013 [facility] [address] [id number] [address] [place] [address], [place] [address] 16 May, 2013 [facility] [address] [id number] [address] [place] [address], [place] [address] 14 May, 2013 [facility] [address] [id number] [address] [place] [address], [place] [address] 14 May, 2013 [facility] [address] [id number] [address] [place] [address], [place] [address] 13 May, 2013 [facility] [address] [id number] [address] [place] [address], [place] [address] 13 May, 2013 [facility] [address] [id number] [address] [place] [address], [place] [address] 12 May, 2013 [facility] [address] [id number] [address] [place] [address], [place] [address] 12 May, 2013 [facility] [address] [id number] [address] [place] [address], [place] [address] 11 May, 2013 [facility] [address] [id number] [address] [place] [address], [place] [address] May, [facility] [address] [id number] [address] [place] [address], [place] [address] Apr, [facility] [address] [id number] [address] [place] [address], [place] [address] Apr, [facility] [address] [id number] [address] [place] [address], [place] [address] Apr, [facility] [address] [id number] [address] [place] [address], [place] [address] Apr, [facility] [address] [id number] [address] [place] [address], [place] [address] 27 Aug, 2012 [facility] [address] [id number] [address] [place] [address], [place] [address] 18 Aug, 2012 [facility] [address] [id number] [address] [place] [address], [place] [address] Aug, [facility] [address] [id number] [address] [place] [address], [place] [address] Aug, [facility] [address] [id number] [address] [place] [address], [place] [address] Jul, [facility] [address] [id number] [address] [place] [address], [place] [address] Jun, [facility] [address] [id number] [address] [place] [address], [place] [address] Jun, [facility] [address] [id number] [address] [place] [address], [place] [address] Jun, [facility] [address] [id number] [address] [place] [address], [place] [address] Jun, [facility] [address] [id number] [address] [place] [address], [place] [address] May, [facility] [address] [id number] [address] [place] [address], [place] [address] May, [facility] [address] [id number] [address] [place] [address], [place] [address] May, [facility] [address] [id number] [address] [place] [address], [place] [address] May, [facility] [address] [id number] [address] [place] [address], [place] [address] May, [facility] [address] [id number] [address] [place] [address], [place] [address] May, [facility] [address] [id number] [address] [place] [address], [place] [address] May, [facility] [address] [id number] [address] [place] [address], [place] [address] Apr, [facility] [address] [id number] [address] [place] [address], [place] [address] Apr, [facility] [address] [id number] [address] [place] [address], [place] [address] Apr, [facility] [address] [id number] [address] [place] [address], [place] [address] Apr, [facility] [address] [id number] [address] [place] [address], [place] [address] Apr, [facility] [address] [id number] [address] [place] [address], [place] [address] Apr, [facility] [address] [id number] [address] [place] [address], [place] [address] Apr, [facility] [address] [id number] [address] [place] [address], [place] [address] Mar, [facility] [address] [id number] [address] [place] [address], [place] [address] Mar, [facility] [address] [id number] [address] [place] [address], [place] [address] Mar, [facility] [address] [id number] [address] [place] [address], [place] [address] Mar, [facility] [address] [id number] [address] [place] [address], [place] [address] Mar, [facility] [address] [id number] [address] [place] [address] Mar, [facility] [address] [id number] [address] [place] [address], [place] [address] Mar, [facility] [address] [id number] [address] [place] [address] 17 Mar, 2012 [facility] [address] [id number] [address] [place] [address], [place] [address] 15 Mar, 2012 [facility] [address] [id number] [address] [place] [address] 15 Mar, 2012 [facility] [address] [id number] [address] [place] [address] Mar, [facility] [address] [id number] [address] [place] [address], [place] [address] Mar, [facility] [address] [id number] [address] [place] [address], [place] [address] Feb, [facility] [address] [id number] [address] [place] [address], [place] [address] Jan, [facility] [address] [id number] [address] [place] [address], [place] [address] Jan, [facility] [address] [id number] [address] [place] [address], [place] [address] Jan, [facility] [address] [id number] [address] [place] [address], [place] [address] Jan, [facility] [address] [id number] [address] [place] [address], [place] [address] Jan, [facility] [address] [id number] [address] [place] [address], [place] [address] Dec, [facility] [address] [id number] [address] [place] [address], [place] [address] Dec, [facility] [address] [id number] [address] [place] [address], [place] [address] Nov, [facility] [address] [id number] [address] [place] [address], [place] [address] Nov, [facility] [address] [id number] [address] [place] [address], [place] [address] Nov, [facility] [address] [id number] [address] [place] [address], [place] [address] October, [facility] [address] [id number] [address] [place] [address], [place] [address] October, [facility] [address] [id number] [address] [place] [address], [place] [address] October, [facility] [address] [id number] [address] [place] [address], [place] [address] October, [facility] [address] [id number] [address] [place] [address], [place] [address] October, [facility] [address] [id number] [address] [place] [address], [place] [address] October, [facility] [address] [id number] [address] [place] [address], [place] [address] October, [facility] [address] [id number] [address] [place] [address], [place] [address] 26 Sep, 2011 [facility] [address] [id number] [address] [place] [address], [place] [address] Sep, [facility] [address] [id number] [address] [place] [address], [place] [address] 26 Sep, 2011 [facility] [address] [id number] [address] [place] [address], [place] [address] 25 Sep, 2011 [facility] [address] [id number] [address] [place] [address], [place] [address] 24 Sep, 2011 [facility] [address] [id number] [address] [place] [address], [place] [address] 19 Sep, 2011 [facility] [address] [id number] [address] [place] [address], [place] [address] 17 Sep, 2011 [facility] [address] [id number] [address] [place] [address], [place] [address] 16 Sep, 2011 [facility] [address] [id number] [address] [place] [address], [place] [address] 16 Sep, 2011 [facility] [address] [id number] [address] [place] [address], [place] [address] 14 Sep, 2011 [facility] [address] [id number] [address] [place] [address], [place] [address] 13 Sep, 2011 [facility] [address] [id number] [address] [place] [address], [place] [address] 10 Sep, 2011 [facility] [address] [id number] [address] [place] [address], [place] [address] 09 Sep, 2011 [facility] [address] [id number] [address] [place] [address], [place] [address] 27 Aug, 2011 [facility] [address] [id number] [address] [place] [address], [place] [address] Aug, [facility] [address] [id number] [address] [place] [address], [place] [address] 08 Aug, 2011 [facility] [address] [id number] [address] [place] [address], [place] [address] 06 Aug, 2011 [facility] [address] [id number] [address] [place] [address], [place] [address] 28 Jul, 2011 [facility] [address] [id number] [address] [place] [address], [place] [address] 22 Jul, 2011 [facility] [address] [id number] [address] [place] [address], [place] [address] 16 Jul, 2011 [facility] [address] [id number] [address] [place] [address], [place] [address] 15 Jul, 2011 [facility] [address] [id number] [address] [place] [address], [place] [address] 14 Jul, 2011 [facility] [address] [id number] [address] [place] [address], [place] [address] 10 Jul, 2011 [facility] [address] [id number] [address] [place] [address], [place] [address] Jun, [facility] [address] [id number] [address] [place] [address], [place] [address] Jun, [facility] [address] [id number] [address] [place] [address], [place] [address] Jun, [facility] [address] [id number] [address] [place] [address], [place] [address] Jun, [facility] [address] [id number] [address] [place] [address] Jun, [facility] [address] [id number] [address] [place] [address], [place] [address] 27 May, 2011 [facility] [address] [id number] [address] [place] [address], [place] [address] May, [facility] [address] [id number] [address] [place] [address], [place] [address] 14 May, 2011 [facility] [address] [id number] [address] [place] [id number] 14 May, 2011 [facility] [address] [id number] [address] [place] [address], [place] [address] 12 May, 2011 [facility] [address] [id number] [address] [place] [address], [place] [address] 07 May, 2011 [facility] [address] [id number] [address] [place] [address], [place] [address] 05 May, 2011 [facility] [address] [id number] [address] [place] [address], [place] [address] 15 Apr, 2011 [facility] [address] [id number] [address] [place] [address] 15 Apr, 2011 [facility] [address] [id number] [address] [place] [address] 07 Apr, 2011 [facility] [address] [id number] [address] [place] [address] Apr, [facility] [address] [id number] [address] [place] [address] Apr, [facility] [address] [id number] [address] [place] [address] Apr, [facility] [address] [id number] [address] [place] [address] 28 Mar, 2011 [facility] [address] [id number] [address] [place] [address], [place] [address] Mar, [facility] [address] [id number] [address] [place] [address], [place] [address] 12 Mar, 2011 [facility] [address] [id number] [address] [place] [address], [place] [address] Mar, [facility] [address] [id number] [address] [place] [address], [place] [address] Jan, [facility] [address] [id number] [address] [place] [address], [place] [address] Dec, [facility] [address] [id number] [address] [place] [address], [place] [address] Dec, [facility] [address] [id number] [address] [place] [address], [place] [address] October, [facility] [address] [id number] [address] [place] [address], [place] [address] 20 Sep, 2010 [facility] [address] [id number] [address] [place] [address], [place] [address] 14 Sep, 2010 [facility] [address] [id number] [address] [place] [address], [place] [address] 17 Jul, 2010 [facility] [address] [id number] [address] [place] [address], [place] [address] 16 Jul, 2010 [facility] [address] [id number] [address] [place] [address], [place] [address] May, [facility] [address] [id number] [address] [place] [address], [place] [address] May, [facility] [address] [id number] [address] [place] [address], [place] [address] May, [facility] [address] [id number] [address] [place] [address], [place] [address] May, [facility] [address] [id number] [address] [place] [address], [place] [address] Apr, [facility] [address] [id number] [address] [place], [place] [address] [address] Apr, [facility] [address] [id number] [address] [place] [address], [place] [address] Apr, [facility] [address] [id number] [address] [place] [address], [place] [address] Apr, [facility] [address] [id number] [address] [place] [address], [place] [address] Apr, [facility] [address] [id number] [address] [place] [address], [place] [address] Mar, [facility] [address] [id number] [address] [place] [address], [place] [address] 14 Mar, 2010 [facility] [address] [id number] [address] [place] [address], [place] [address] 13 Mar, 2010 [facility] [address] [id number] [address] [place] [address], [place] [address] Mar, [facility] [address] [id number] [address] [place] [address], [place] [address] Jan, [facility] [address] [id number] [address] [place] [address], [place] [address] 15 Dec, 2009 [facility] [address] [address] [id number] [address] [place] [address], [place] [id number] 10 Sep, 2009 [facility] [address] [id number] [address] [place] [phone] 08 May, 2009 [facility] [address] [id number] [address] [place] [phone] 06 May, 2009 [facility] [address] [id number] [address] [place] [address], [place] [address] May, [facility] [address] [id number] [address] [place] [phone] 17 Apr, 2009 [facility] [address] [id number] [address] [place] [address], [place] [address] Apr, [facility] [address] [id number] [address] [place] [phone] Apr, [facility] [address] [facility] [id number] [address] [place] [phone] Apr, [facility] [address] [facility] [id number] [address] [place] [id number] Apr, [facility] [address] [facility] [id number] [address] [place] [phone] Mar, [facility] [address] [facility] [id number] [address] [place] [phone] Mar, [facility] [address] [facility] [id number] [address] [place] [phone] Jul, IMMUNIZATIONS No Known Immunizations SOCIAL HISTORY [...] and replaced VC 10/2018 Hospitalization History Cellulitis-[facility] Hospitalization History [facility]- Abd pain 03/07/2017 [facility]ization History [facility]- Abd pain 03/14/2017 [facility]ization History [facility]- No bowel movement, rash 04/13/2017 [facility]ization History [facility]- Abd pain r/ t kidney surgery on 04/10/17 04/17/2017 Hospitalization History [facility]- Abd pain r/ t kidney surgery on 04/10/17 04/18/2017 Hospitalization History [facility]- Lower abd pain 04/17 Hospitalization History [facility]- Cannot urinate 05/17 Hospitalization History [facility]- Pancreatitis Sx Hospitalization History [facility]- Stomach pain 2017 Hospitalization History [facility]- Left side pain 07/19 Hospitalization History [facility]- Incision site infec tion 08/30/2017 Hospitalization History [facility]- Post Op Serom a/Hematoma Left Abdomen. Discharged 09/04/17- Dr Daniel 09/02/2017 Hospitalization History [facility]- Right shoulder and back pain 10/22/2017 Hospitalization History [facility]- Shoulder/Back pain 11/11/2017 Hospitalization History [facility]- Right shoulder blad e pain 12/04/2017 Hospitalization History [facility]- C-Diff 12/13/2017 Hospitalization History C diff et MRSA 12/27/2017 Hospitalization History [facility] Bowel Obstruction 10/2018 Hospitalization History [facility]- Abdominal pain and nausea 01/08/2019 Hospitalization History [facility] for fluids for dehydration/headac he 11/2019
--- OUTSIDE RECORDS SUMMARY | 2020-01-21 18:03 | XMS REPORT ---
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 [address] [place] [id number] [address] [place] [address] October, STD exposure Z20.2 [facility] [address] [place] [id number] [address] [place] [address] October, STD exposure Z20.2 [facility] [address] [place] [id number] [address] [place] [address] October, Chronic post-traumatic stres s disorder (PTSD) F43.12 ; Generalized social phobia F40.11 ; Trichotillomania F63.3 and Restless leg syndrome G25.81 [facility] [address] [facility] [id number] [address] [place] [address] October, [facility] [address] [place] [id number] [address] [place] [address] Sep, [facility] [address] [facility] [id number] [address] [place] [address] Aug, [facility] [address] [place] [id number] [address] [place] [address] Aug, [facility] [address] [place] [id number] [address] [place] [address] Aug, Neck mass R22.1 [place] [address] [place] [address] 03 Aug, 2016 Atelectasis J98.11 [place] [address] [place] [id number] [address] [place] [address] 28 Jul, 2016 Hyperlipidemia, mixed E78.2 ; Atypical pneumonia J18.9 and Neck mass R22.1 [place] [address] [address] 15 Jul, 2016 Hemoptysis R04.2 [place] [address] [address] 08 Jul, 2016 Acute non-recurrent pansinus itis J01.40 ; Hemoptysis R04.2 ; Polydipsia R63.1 and Malaise R53.81 [facility] IN [place] [address] [place] [id number] [address] [place] [address] May, Other viral agents as the ca use of diseases classified elsewhere B97.89 and Acute upper respiratory infection, unspecified J06.9 [facility] WALK IN [place] [id number] [address] [place] [address] Mar, Nausea R11.0 [facility] IN [place] [address] [place] [id number] [place] [id number] 28 Dec, 2015 Hives L50.9 [place] [address] [place] [id number] [address] [place] [address] 14 Dec, 2015 [facility] WALK IN [place] [address] [address] 10 Dec, 2015 Cutaneous abscess of limb, u nspecified L02.419 ; Cellulitis of unspecified part of limb L03.119 ; Encounter for incision and drainage procedure Z01.89 and Encounter for recheck of abscess following i ncision and drainage Z09 [facility] IN [place] [address] [place] [id number] [address] [place] [address] 09 Dec, 2015 Abscess of leg, right L02.41 5 [place] [address] [place] [id number] [address] [place] [address] 08 Dec, 2015 Cellulitis of unspecified pa rt of limb L03.119 and Cutaneous abscess of limb, unspecified L02.419 [place] [address] [facility] [id number] [address] [place] [address] Dec, [place] [address] [place] [id number] [place] [address] Dec, [facility] IN [place] [address] [place] [id number] [place] [address] Aug, [place] [address] [address] Aug, [facility] IN [place] [address] [address] Jul, Pain in unspecified wrist M2 5.539 and Back pain, thoracic M54.6 [facility] IN [place] [address] [address] Jun, Strain of right wrist, initi al encounter S66.911A [place] [address] [address] Jun, Chronic pancreatitis, unspec ified pancreatitis type K86.1 ; Hirsuties L68.0 ; Morbid (severe) obesity due to excess calories E66.01 ; Chronic pancreatitis K86.1 and Asthma J45.909 [place] [address] [place] [id number] [address] [place] [address] May, [place] [address] [place] [address] May, Hyperlipidemia, mixed E78.2 and Muscle spasm of back M62.830 [place] [address] [place] [id number] [address] [place] [address] Apr, [place] [address] [address] Apr, Torticollis M43.6 [facility] [address] [id number] [address] [place] [address] Apr, Right-sided thoracic back pa in M54.6 [facility] [address] [id number] [address] [place] [address] Mar, Rash R21 [facility] [address] [id number] [address] [place] [address] Mar, [facility] [address] [id number] [address] [place] [address] Jan, [facility] [address] [facility] [id number] [address] [place] [address] Dec, [facility] [address] [facility] [id number] [address] [place] [address] Dec, Urinary frequency 788.41 and Nocturia more than twice per night 788.43 [facility] [address] [id number] [address] [place] [address] Nov, [facility] [address] [facility] [id number] [address] [place] [address] Nov, [facility] [address] [facility] [id number] [address] [place] [address] Nov, Abdominal pain 789.00 [facility] [address] [facility] [id number] [address] [place] [address] October, TDAP DX V06.1 [facility] [address] [id number] [address] [place] [address] October, [facility] [address] [facility] [id number] [address] [place] [address] October, Disturbance of skin sensatio n 782.0 ; Wrist pain, right 719.43 ; Hyperlipidemia 272.4 and Skin lesion of face 709.9 [facility] [address] [facility] [id number] [address] [place] [address] 14 Sep, 2014 [facility] [address] [id number] [address] [place] [address], [place] [address] 13 Sep, 2014 [facility] [address] [id number] [address] [place] [address], [place] [address] 26 Aug, 2014 [facility] [address] [id number] [address] [place] [address], [place] [address] 26 Aug, 2014 [facility] [address] [id number] [address] [place] [address], [place] [address] 23 Aug, 2014 [facility] [address] [id number] [address] [place] [address], [place] [address] 23 Aug, 2014 [facility] [address] [id number] [address] [place] [address], [place] [address] 16 Aug, 2014 [facility] [address] [id number] [address] [place] [address], [place] [address] 16 Aug, 2014 [facility] [address] [id number] [address] [place] [address], [place] [address] 14 Aug, 2014 [facility] [address] [id number] [address] [place] [address], [place] [address] 14 Aug, 2014 [facility] [address] [id number] [address] [place] [address], [place] [address] 11 Aug, 2014 [facility] [address] [id number] [address] [place] [address], [place] [address] 11 Aug, 2014 [facility] [address] [id number] [address] [place] [address], [place] [address] 04 Aug, 2014 [facility] [address] [id number] [address] [place] [address], [place] [address] 04 Aug, 2014 [facility] [address] [id number] [address] [place] [address], [place] [address] 03 Aug, 2014 [facility] [address] [id number] [address] [place] [address], [place] [address] 03 Aug, 2014 [facility] [address] [id number] [address] [place] [address], [place] [address] Jul, 2014 [facility] [address] [id number] [address] [place] [address], [place] [address] Jul, [facility] [address] [id number] [address] [place] [address], [place] [address] Jul, 2014 [facility] [address] [id number] [address] [place] [address], [place] [address] Jul, 2014 [facility] [address] [id number] [address] [place] [address], [place] [address] Jul, [facility] [address] [id number] [address] [place] [address], [place] [address] Jul, [facility] [address] [id number] [address] [place] [address], [place] [address] Jun, [facility] [address] [id number] [address] [place] [address], [place] [address] Jun, [facility] [address] [id number] [address] [place] [address], [place] [address] Jun, [facility] [address] [id number] [address] [place] [address], [place] [address] Jun, [facility] [address] [id number] [address] [place] [address], [place] [address] Jun, [facility] [address] [id number] [address] [place] [address], [place] [address] Jun, [facility] [address] [id number] [address] [place] [address], [place] [address] Jun, [facility] [address] [id number] [address] [place] [address], [place] [address] Jun, [facility] [address] [id number] [address] [place] [address], [place] [address] May, [facility] [address] [id number] [address] [place] [address], [place] [address] May, [facility] [address] [id number] [address] [place] [address], [place] [address] May, [facility] [address] [id number] [address] [place] [address], [place] [address] May, [facility] [address] [id number] [address] [place] [address], [place] [address] May, [facility] [address] [id number] [address] [place] [address], [place] [address] May, [facility] [address] [id number] [address] [place] [address], [place] [address] May, [facility] [address] [id number] [address] [place] [address], [place] [address] May, [facility] [address] [id number] [address] [place] [address], [place] [address] May, [facility] [address] [id number] [address] [place] [address], [place] [address] May, [facility] [address] [id number] [address] [place] [address], [place] [address] May, [facility] [address] [id number] [address] [place] [address], [place] [address] May, [facility] [address] [id number] [address] [place] [address], [place] [address] Apr, [facility] [address] [id number] [address] [place] [address], [place] [address] Apr, [facility] [address] [id number] [address] [place] [address], [place] [address] Apr, [facility] [address] [id number] [address] [place] [address], [place] [address] Apr, [facility] [address] [id number] [address] [place] [address], [place] [address] Apr, [facility] [address] [id number] [address] [place] [address], [place] [address] 24 Apr, 2014 [facility] [address] [id number] [address] [place] [address], [place] [address] 14 Apr, 2014 [facility] [address] [id number] [address] [place] [address], [place] [address] 14 Apr, 2014 [facility] [address] [id number] [address] [place] [address], [place] [address] Apr, [facility] [address] [id number] [address] [place] [address], [place] [address] Apr, [facility] [address] [id number] [address] [place] [address], [place] [address] Apr, [facility] [address] [id number] [address] [place] [address], [place] [address] Apr, [facility] [address] [id number] [address] [place] [address], [place] [address] Mar, [facility] [address] [id number] [address] [place] [address], [place] [address] Mar, [facility] [address] [id number] [address] [place] [address], [place] [address] Mar, [facility] [address] [id number] [address] [place] [address], [place] [address] 02 Mar, 2014 [facility] [address] [id number] [address] [place] [address], [place] [address] 10 Feb, 2013 [facility] [address] [id number] [address] [place] [address], [place] [address] 10 Feb, 2013 [facility] [address] [id number] [address] [place] [address], [place] [address] 05 Sep2013 [facility] [address] [id number] [address] [place] [address], [place] [address] 05 Sep, 2013 [facility] [address] [id number] [address] [place] [address], [place] [address] Feb, [facility] [address] [id number] [address] [place] [address], [place] [address] Feb, [facility] [address] [id number] [address] [place] [address], [place] [address] Jan, [facility] [address] [id number] [address] [place] [address], [place] [address] Jan, [facility] [address] [id number] [address] [place] [address], [place] [address] Jan, [facility] [address] [id number] [address] [place] [address], [place] [address] Jan, [facility] [address] [id number] [address] [place] [address], [place] [address] Jan, [facility] [address] [id number] [address] [place] [address], [place] [address] Jan, [facility] [address] [id number] [address] [place] [address], [place] [address] Jan, [facility] [address] [id number] [address] [place] [address], [place] [address] Jan, [facility] [address] [id number] [address] [place] [address], [place] [address] Jan, [facility] [address] [id number] [address] [place] [address], [place] [address] Jan, [facility] [address] [id number] [address] [place] [address], [place] [address] Jan, [facility] [address] [id number] [address] [place] [address], [place] [address] Jan, [facility] [address] [id number] [address] [place] [address], [place] [address] Jan, [facility] [address] [id number] [address] [place] [address], [place] [address] Jan, [facility] [address] [id number] [address] [place] [address], [place] [address] Dec, [facility] [address] [id number] [facility] [place] [address] Dec, [facility] [address] [id number] [address] [place] [address], [place] [address] Dec, [facility] [address] [id number] [address] [place] [address], [place] [address] Dec, [facility] [address] [id number] [address] [place] [address], [place] [address] Nov, [facility] [address] [id number] [address] [place] [address], [place] [address] Nov, [facility] [address] [id number] [address] [place] [address], [place] [address] Nov, [facility] [address] [id number] [address] [place] [address], [place] [address] Nov, [facility] [address] [id number] [address] [place] [address], [place] [address] Nov, [facility] [address] [id number] [address] [place] [address], [place] [address] October, [facility] [address] [id number] [address] [place] [address], [place] [address] October, [facility] [address] [id number] [address] [place] [address], [place] [address] October, [facility] [address] [id number] [address] [place] [address], [place] [address] October, [facility] [address] [id number] [address] [place] [address], [place] [address] October, [facility] [address] [id number] [address] [place] [address], [place] [address] October, [facility] [address] [id number] [address] [place] [address], [place] [address] October, [facility] [address] [id number] [address] [place] [address], [place] [address] 14 Oct, 2013 [facility] [address] [id number] [address] [place] [address], [place] [address] October, [facility] [address] [id number] [address] [place] [address], [place] [address] October, [facility] [address] [id number] [address] [place] [address], [place] [address] October, [facility] [address] [id number] [address] [place] [address], [place] [address] October, [facility] [address] [id number] [address] [place] [address], [place] [address] October, [facility] [address] [id number] [address] [place] [address], [place] [address] October, [facility] [address] [id number] [address] [place] [address], [place] [address] Sep, [facility] [address] [id number] [address] [place] [address], [place] [address] Sep, [facility] [address] [id number] [address] [place] [address], [place] [address] Sep, [facility] [address] [id number] [address] [place] [address], [place] [address] Sep, [facility] [address] [id number] [address] [place] [address], [place] [address] Sep, [facility] [address] [id number] [address] [place] [address], [place] [address] Sep, [facility] [address] [id number] [address] [place] [address], [place] [address] Sep, [facility] [address] [id number] [address] [place] [address], [place] [address] Sep, [facility] [address] [id number] [address] [place] [address], [place] [address] Sep, [facility] [address] [id number] [facility] [place] [address] Sep, [facility] [address] [id number] [address] [place] [address], [place] [address] Sep, [facility] [address] [id number] [address] [place] [address], [place] [address] Sep, [facility] [address] [id number] [address] [place] [address], [place] [address] Sep, [facility] [address] [id number] [address] [place] [address], [place] [address] Sep, [facility] [address] [id number] [address] [place] [address], [place] [address] Sep, [facility] [address] [id number] [address] [place] [address], [place] [address] Aug, [facility] [address] [id number] [address] [place] [address], [place] [address] Aug, [facility] [address] [id number] [address] [place] [address], [place] [address] Aug, [facility] [address] [id number] [address] [place] [address], [place] [address] Aug, [facility] [address] [id number] [address] [place] [address], [place] [address] Jul, [facility] [address] [id number] [address] [place] [address], [place] [address] Jul, [facility] [address] [id number] [address] [place] [address], [place] [address] Jul, [facility] [address] [id number] [address] [place] [address], [place] [address] Jul, [facility] [address] [id number] [address] [place] [address], [place] [address] Jun, [facility] [address] [id number] [address] [place] [address], [place] [address] 15 Jun, 2013 [facility] [address] [id number] [address] [place] [address], [place] [address] 15 Jun, 2013 [facility] [address] [id number] [address] [place] [address], [place] [address] 15 Jun, 2013 [facility] [address] [id number] [address] [place] [address], [place] [address] 10 Jun, 2013 [facility] [address] [id number] [address] [place] [address], [place] [address] Jun, [facility] [address] [id number] [address] [place] [address], [place] [address] Jun, [facility] [address] [id number] [address] [place] [address], [place] [address] 08 Jun, 2013 [facility] [address] [id number] [address] [place] [address], [place] [address] 20 May, 2013 [facility] [address] [id number] [address] [place] [address], [place] [address] 20 May, 2013 [facility] [address] [id number] [address] [place] [address], [place] [address] 18 May, 2013 [facility] [address] [id number] [address] [place] [address], [place] [address] 18 May, 2013 [facility] [address] [id number] [address] [place] [address], [place] [address] 17 May, 2013 [facility] [address] [id number] [address] [place] [address], [place] [id number] 17 May, 2013 [facility] [address] [id number] [address] [place] [address], [place] [address] 17 May, 2013 [facility] [address] [id number] [address] [place] [address], [place] [address] 17 May, 2013 [facility] [address] [id number] [address] [place] [address], [place] [address] 16 May, 2013 [facility] [address] [id number] [address] [place] [address], [place] [address] 16 May, 2013 [facility] [address] [id number] [address] [place] [address], [place] [address] 14 May, 2013 [facility] [address] [id number] [address] [place] [address], [place] [address] 14 May, 2013 [facility] [address] [id number] [address] [place] [address], [place] [address] 13 May, 2013 [facility] [address] [id number] [address] [place] [address], [place] [address] 13 May, 2013 [facility] [address] [id number] [address] [place] [address], [place] [address] 12 May, 2013 [facility] [address] [id number] [address] [place] [address], [place] [address] 12 May, 2013 [facility] [address] [id number] [address] [place] [address], [place] [address] 11 May, 2013 [facility] [address] [id number] [address] [place] [address], [place] [address] May, [facility] [address] [id number] [address] [place] [address], [place] [address] Apr, [facility] [address] [id number] [address] [place] [address], [place] [address] Apr, [facility] [address] [id number] [address] [place] [address], [place] [address] Apr, [facility] [address] [id number] [address] [place] [address], [place] [address] Apr, [facility] [address] [id number] [address] [place] [address], [place] [address] 27 Aug, 2012 [facility] [address] [id number] [address] [place] [address], [place] [address] 18 Aug, 2012 [facility] [address] [id number] [address] [place] [address], [place] [address] Aug, [facility] [address] [id number] [address] [place] [address], [place] [address] Aug, [facility] [address] [id number] [address] [place] [address], [place] [address] Jul, [facility] [address] [id number] [address] [place] [address], [place] [address] Jun, [facility] [address] [id number] [address] [place] [address], [place] [address] Jun, [facility] [address] [id number] [address] [place] [address], [place] [address] Jun, [facility] [address] [id number] [address] [place] [address], [place] [address] Jun, [facility] [address] [id number] [address] [place] [address], [place] [address] May, [facility] [address] [id number] [address] [place] [address], [place] [address] May, [facility] [address] [id number] [address] [place] [address], [place] [address] May, [facility] [address] [id number] [address] [place] [address], [place] [address] May, [facility] [address] [id number] [address] [place] [address], [place] [address] May, [facility] [address] [id number] [address] [place] [address], [place] [address] May, [facility] [address] [id number] [address] [place] [address], [place] [address] May, [facility] [address] [id number] [address] [place] [address], [place] [address] Apr, [facility] [address] [id number] [address] [place] [address], [place] [address] Apr, [facility] [address] [id number] [address] [place] [address], [place] [address] Apr, [facility] [address] [id number] [address] [place] [address], [place] [address] Apr, [facility] [address] [id number] [address] [place] [address], [place] [address] Apr, [facility] [address] [id number] [address] [place] [address], [place] [address] Apr, [facility] [address] [id number] [address] [place] [address], [place] [address] Apr, [facility] [address] [id number] [address] [place] [address], [place] [address] Mar, [facility] [address] [id number] [address] [place] [address], [place] [address] Mar, [facility] [address] [id number] [address] [place] [address], [place] [address] Mar, [facility] [address] [id number] [address] [place] [address], [place] [address] Mar, [facility] [address] [id number] [address] [place] [address], [place] [address] Mar, [facility] [address] [id number] [address] [place] [address] Mar, [facility] [address] [id number] [address] [place] [address], [place] [address] Mar, [facility] [address] [id number] [address] [place] [address] 17 Mar, 2012 [facility] [address] [id number] [address] [place] [address], [place] [address] 15 Mar, 2012 [facility] [address] [id number] [address] [place] [address] 15 Mar, 2012 [facility] [address] [id number] [address] [place] [address] Mar, [facility] [address] [id number] [address] [place] [address], [place] [address] Mar, [facility] [address] [id number] [address] [place] [address], [place] [address] Feb, [facility] [address] [id number] [address] [place] [address], [place] [address] Jan, [facility] [address] [id number] [address] [place] [address], [place] [address] Jan, [facility] [address] [id number] [address] [place] [address], [place] [address] Jan, [facility] [address] [id number] [address] [place] [address], [place] [address] Jan, [facility] [address] [id number] [address] [place] [address], [place] [address] Jan, [facility] [address] [id number] [address] [place] [address], [place] [address] Dec, [facility] [address] [id number] [address] [place] [address], [place] [address] Dec, [facility] [address] [id number] [address] [place] [address], [place] [address] Nov, [facility] [address] [id number] [address] [place] [address], [place] [address] Nov, [facility] [address] [id number] [address] [place] [address], [place] [address] Nov, [facility] [address] [id number] [address] [place] [address], [place] [address] October, [facility] [address] [id number] [address] [place] [address], [place] [address] October, [facility] [address] [id number] [address] [place] [address], [place] [address] October, [facility] [address] [id number] [address] [place] [address], [place] [address] October, [facility] [address] [id number] [address] [place] [address], [place] [address] October, [facility] [address] [id number] [address] [place] [address], [place] [address] October, [facility] [address] [id number] [address] [place] [address], [place] [address] October, [facility] [address] [id number] [address] [place] [address], [place] [address] 26 Sep, 2011 [facility] [address] [id number] [address] [place] [address], [place] [address] Sep, [facility] [address] [id number] [address] [place] [address], [place] [address] 26 Sep, 2011 [facility] [address] [id number] [address] [place] [address], [place] [address] 25 Sep, 2011 [facility] [address] [id number] [address] [place] [address], [place] [address] 24 Sep, 2011 [facility] [address] [id number] [address] [place] [address], [place] [address] 19 Sep, 2011 [facility] [address] [id number] [address] [place] [address], [place] [address] 17 Sep, 2011 [facility] [address] [id number] [address] [place] [address], [place] [address] 16 Sep, 2011 [facility] [address] [id number] [address] [place] [address], [place] [address] 16 Sep, 2011 [facility] [address] [id number] [address] [place] [address], [place] [address] 14 Sep, 2011 [facility] [address] [id number] [address] [place] [address], [place] [address] 13 Sep, 2011 [facility] [address] [id number] [address] [place] [address], [place] [address] 10 Sep, 2011 [facility] [address] [id number] [address] [place] [address], [place] [address] 09 Sep, 2011 [facility] [address] [id number] [address] [place] [address], [place] [address] 27 Aug, 2011 [facility] [address] [id number] [address] [place] [address], [place] [address] Aug, [facility] [address] [id number] [address] [place] [address], [place] [address] 08 Aug, 2011 [facility] [address] [id number] [address] [place] [address], [place] [address] 06 Aug, 2011 [facility] [address] [id number] [address] [place] [address], [place] [address] 28 Jul, 2011 [facility] [address] [id number] [address] [place] [address], [place] [address] 22 Jul, 2011 [facility] [address] [id number] [address] [place] [address], [place] [address] 16 Jul, 2011 [facility] [address] [id number] [address] [place] [address], [place] [address] 15 Jul, 2011 [facility] [address] [id number] [address] [place] [address], [place] [address] 14 Jul, 2011 [facility] [address] [id number] [address] [place] [address], [place] [address] 10 Jul, 2011 [facility] [address] [id number] [address] [place] [address], [place] [address] Jun, [facility] [address] [id number] [address] [place] [address], [place] [address] Jun, [facility] [address] [id number] [address] [place] [address], [place] [address] Jun, [facility] [address] [id number] [address] [place] [address], [place] [address] Jun, [facility] [address] [id number] [address] [place] [address] Jun, [facility] [address] [id number] [address] [place] [address], [place] [address] 27 May, 2011 [facility] [address] [id number] [address] [place] [address], [place] [address] May, [facility] [address] [id number] [address] [place] [address], [place] [address] 14 May, 2011 [facility] [address] [id number] [address] [place] [address] 14 May, 2011 [facility] [address] [id number] [address] [place] [address], [place] [address] 12 May, 2011 [facility] [address] [id number] [address] [place] [address], [place] [address] 07 May, 2011 [facility] [address] [id number] [address] [place] [address], [place] [address] 05 May, 2011 [facility] [address] [id number] [address] [place] [address], [place] [address] 15 Apr, 2011 [facility] [address] [id number] [address] [place] [id number] 15 Apr, 2011 [facility] [address] [id number] [address] [place] [id number] 07 Apr, 2011 [facility] [address] [id number] [address] [place] [id number] Apr, [facility] [address] [id number] [address] [place] [id number] Apr, [facility] [address] [id number] [address] [place] [id number] Apr, [facility] [address] [id number] [address] [place] [id number] 28 Mar, 2011 [facility] [address] [id number] [address] [place] [address], [place] [address] Mar, [facility] [address] [id number] [address] [place] [address], [place] [address] 12 Mar, 2011 [facility] [address] [id number] [address] [place] [address], [place] [address] Mar, [facility] [address] [id number] [address] [place] [address], [place] [address] Jan, [facility] [address] [id number] [address] [place] [address], [place] [address] Dec, [facility] [address] [id number] [address] [place] [address], [place] [address] Dec, [facility] [address] [id number] [address] [place] [address], [place] [address] October, [facility] [address] [id number] [address] [place] [address], [place] [address] 20 Sep, 2010 [facility] [address] [id number] [address] [place] [address], [place] [address] 14 Sep, 2010 [facility] [address] [id number] [address] [place] [address], [place] [address] 17 Jul, 2010 [facility] [address] [id number] [address] [place] [address], [place] [address] 16 Jul, 2010 [facility] [address] [id number] [address] [place] [address], [place] [address] May, [facility] [address] [id number] [address] [place] [address], [place] [address] May, [facility] [address] [id number] [address] [place] [address], [place] [address] May, [facility] [address] [id number] [address] [place] [address], [place] [address] May, [facility] [address] [id number] [address] [place] [address], [place] [address] Apr, [facility] [address] [id number] [address] [place] [address] [address] Apr, [facility] [address] [id number] [address] [place] [address], [place] [address] Apr, [facility] [address] [id number] [address] [place] [address], [place] [address] Apr, [facility] [address] [id number] [address] [place] [address], [place] [address] Apr, [facility] [address] [id number] [address] [place] [address], [place] [address] Mar, [facility] [address] [id number] [address] [place] [address], [place] [address] 14 Mar, 2010 [facility] [address] [id number] [address] [place] [address], [place] [address] 13 Mar, 2010 [facility] [address] [id number] [address] [place] [address], [place] [address] Mar, [facility] [address] [id number] [address] [place] [address], [place] [address] Jan, [facility] [address] [id number] [address] [place] [address], [place] [address] 15 Dec, 2009 [facility] [address] [id number] [address] [place] [address], [place] [address] 10 Sep, 2009 [facility] [address] [id number] [address] [place] [id number] 08 May, 2009 [facility] [address] [id number] [address] [place] [id number] 06 May, 2009 [facility] [address] [id number] [address] [place] [address], [place] [address] May, [facility] [address] [id number] [address] [place] [id number] 17 Apr, 2009 [facility] [address] [id number] [address] [place] [address], [place] [address] Apr, [facility] [address] [id number] [address] [place] [id number] Apr, [facility] [address] [facility] [id number] [address] [place] [address] Apr, [facility] [address] [facility] [id number] [address] [place] [id number] Apr, [facility] [address] [facility] [id number] [address] [place] [id number] Mar, [facility] [address] [facility] [id number] 06 [place] [phone] Mar, [facility] [address] [facility] [id number] [place] [phone] Jul, IMMUNIZATIONS No Known Immunizations SOCIAL HISTORY Never Assessed REASON FOR VISIT PLAN OF CARE VITAL SIGNS Height 62 in 2013-06-01 Weight 248 lbs 2013-06-01 MEDICATIONS Unknown Medications RESULTS No Results PROCEDURES [...] History Cellulitis-[facility] Hospitalization History [facility]- Abd pain 03/07/2017 Hospitalization History [facility]- Abd pain 03/14/2017 Hospitalization History [facility]- No bowel movement, rash 04/13/2017 Hospitalization History [facility]- Abd pain r/ t kidney surgery on 04/10/17 04/17/2017 Hospitalization History [facility]- Abd pain r/ t kidney surgery on 04/10/17 04/18/2017 Hospitalization History [facility]- Lower abd pain 04/17 Hospitalization History [facility]- Cannot urinate 05/17 Hospitalization History [facility]- Pancreatitis Sx Hospitalization History [facility]- Stomach pain 2017 Hospitalization History [facility] [place]- Left side pain 07/19 Hospitalization History [facility]- Incision site infec tion 08/30/2017 Hospitalization History [facility]- Post Op Serom a/Hematoma Left Abdomen. Discharged 09/04/17- Dr Daniel 09/02/2017 Hospitalization History [facility] [place]- Right shoulder and back pain 10/22/2017 Hospitalization History [facility] [place]- Shoulder/Back pain 11/11/2017 Hospitalization History [facility] [place]- Right shoulder blad e pain 12/04/2017 Hospitalization History [facility]- C-Diff 12/13/2017 Hospitalization History C diff et MRSA 12/27/2017 Hospitalization History [facility] Bowel Obstruction 10/2018 Hospitalization History [facility] [place]- Abdominal pain and nausea 01/08/2019 Hospitalization History for fluids for dehydration/headac he 11/2019
--- OUTSIDE RECORDS SUMMARY | 2020-01-21 18:04 | XMS REPORT ---
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 eyes R51 [facility] [address] [facility] [id number] [address] [place] [address] Nov, [facility] [address] [place] [id number] [address] [place] [address] October, STD exposure Z20.2 [facility] [address] [place] [id number] [address] [place] [address] October, STD exposure Z20.2 [facility] [address] [facility] [id number] [address] [place] [address] October, Chronic post-traumatic stres s disorder (PTSD) F43.12 ; Generalized social phobia F40.11 ; Trichotillomania F63.3 and Restless leg syndrome G25.81 [facility] [address] [facility] [id number] [address] [place] [address] October, [facility] [address] [facility] [id number] [address] [place] [address] Sep, [facility] [address] [facility] [id number] [address] [place] [address] Aug, [facility] [address] [facility] [id number] [address] [place] [address] Aug, [facility] [address] [facility] [id number] [address] [place] [address] Aug, Neck mass R22.1 [facility] [address] [place] [id number] [address] [place] [address] 03 Aug, 2016 Atelectasis J98.11 [place] [address] [place] [id number] [place] [address] 28 Jul, 2016 Hyperlipidemia, mixed E78.2 ; Atypical pneumonia J18.9 and Neck mass R22.1 [place] [address] [address] 15 Jul, 2016 Hemoptysis R04.2 [place] [address] [place] [id number] [place] [address] 08 Jul, 2016 Acute non-recurrent pansinus itis J01.40 ; Hemoptysis R04.2 ; Polydipsia R63.1 and Malaise R53.81 [facility] [place] [address] [place] [id number] [address] [place] [address] May, Other viral agents as the ca use of diseases classified elsewhere B97.89 and Acute upper respiratory infection, unspecified J06.9 [facility] [place] [address] [place] [id number] [address] [place] [address] Mar, Nausea R11.0 [facility] [place] [address] [place] [id number] [address] [place] [address] 28 Dec, 2015 Hives L50.9 [place] [address] [place] [id number] [address] [place] [address] 14 Dec, 2015 [facility] [place] [address] [place] [id number] [address] [place] [address] 10 Dec, 2015 Cutaneous abscess of limb, u nspecified L02.419 ; Cellulitis of unspecified part of limb L03.119 ; Encounter for incision and drainage procedure Z01.89 and Encounter for recheck of abscess following i ncision and drainage Z09 [facility] [place] [address] [place] [id number] [address] [place] [address] 09 Dec, 2015 Abscess of leg, right L02.41 5 [place] [address] [place] [address] 08 Dec, 2015 Cellulitis of unspecified pa rt of limb L03.119 and Cutaneous abscess of limb, unspecified L02.419 [place] [address] [place] [id number] [address] [place] [address] Dec, [place] [address] [place] [id number] [address] [place] [address] Dec, [facility] [place] [address] [address] Aug, [place] [address] [address] Aug, [facility] [place] [address] [address] Jul, Pain in unspecified wrist M2 5.539 and Back pain, thoracic M54.6 [facility] [place] [address] [address] Jun, Strain of right wrist, initi al encounter S66.911A [place] [address] [address] Jun, Chronic pancreatitis, unspec ified pancreatitis type K86.1 ; Hirsuties L68.0 ; Morbid (severe) obesity due to excess calories E66.01 ; Chronic pancreatitis K86.1 and Asthma J45.909 [place] [address] [place] [address] May, [place] [address] [address] May, Hyperlipidemia, mixed E78.2 and Muscle spasm of back M62.830 [place] [address] [place] [id number] [address] [place] [address] Apr, [place] [address] [address] Apr, Torticollis M43.6 [facility] [address] [facility] [id number] [address] [place] [address] Apr, Right-sided thoracic back pa in M54.6 [facility] [address] [id number] [address] [place] [address] 15 Mar, 2015 Rash R21 [facility] [address] [facility] [id number] [address] [place] [address] Mar, [facility] [address] [id number] [address] [place] [address] Jan, [facility] [address] [facility] [id number] [address] [place] [address] Dec, [facility] [address] [facility] [id number] [address] [place] [address] Dec, Urinary frequency 788.41 and Nocturia more than twice per night 788.43 [facility] [address] [place] [id number] [address] [place] [address] Nov, [facility] [address] [facility] [id number] [address] [place] [address] Nov, [facility] [address] [place] [id number] [address] [place] [address] Nov, Abdominal pain 789.00 [facility] [address] [place] [id number] [address] [place] [address] October, TDAP DX V06.1 [facility] [address] [facility] [id number] [address] [place] [address] October, [facility] [address] [place] [id number] [address] [place] [address] October, Disturbance of skin sensatio n 782.0 ; Wrist pain, right 719.43 ; Hyperlipidemia 272.4 and Skin lesion of face 709.9 [facility] [address] [place] [id number] [address] [place] [address] Sep, [facility] [address] [id number] [address] [place] [address], [place] [address] 13 Sep, 2014 [facility] [address] [id number] [address] [place] [address], [place] [address] 26 Aug, 2014 [facility] [address] [id number] [address] [place] [address], [place] [address] 26 Aug, 2014 [facility] [address] [id number] [address] [place] [address], [place] [address] 23 Aug, 2014 [facility] [address] [id number] [address] [place] [address], [place] [address] 23 Aug, 2014 [facility] [address] [id number] [address] [place] [address], [place] [address] 16 Aug, 2014 [facility] [address] [id number] [address] [place] [address], [place] [address] 16 Aug, 2014 [facility] [address] [id number] [address] [place] [address], [place] [address] 14 Aug, 2014 [facility] [address] [id number] [address] [place] [address], [place] [address] 14 Aug, 2014 [facility] [address] [id number] [address] [place] [address], [place] [address] 11 Aug, 2014 [facility] [address] [id number] [address] [place] [address], [place] [address] 11 Aug, 2014 [facility] [address] [id number] [address] [place] [address], [place] [address] 04 Aug, 2014 [facility] [address] [id number] [address] [place] [address], [place] [address] 04 Aug, 2014 [facility] [address] [id number] [address] [place] [address], [place] [address] 03 Aug, 2014 [facility] [address] [id number] [address] [place] [address], [place] [address] 03 Aug, 2014 [facility] [address] [id number] [address] [place] [address], [place] [address] Jul, 2014 [facility] [address] [id number] [address] [place] [address], [place] [address] Jul, 2014 [facility] [address] [id number] [address] [place] [address], [place] [address] Jul, 2014 [facility] [address] [id number] [address] [place] [address], [place] [address] Jul, 2014 [facility] [address] [id number] [address] [place] [address], [place] [address] Jul, [facility] [address] [id number] [address] [place] [address], [place] [address] Jul, [facility] [address] [id number] [address] [place] [address], [place] [address] Jun, [facility] [address] [id number] [address] [place] [address], [place] [address] Jun, [facility] [address] [id number] [address] [place] [address], [place] [address] Jun, [facility] [address] [id number] [address] [place] [address], [place] [address] Jun, [facility] [address] [id number] [address] [place] [address], [place] [address] Jun, [facility] [address] [id number] [address] [place] [address], [place] [address] Jun, [facility] [address] [id number] [address] [place] [address], [place] [address] Jun, [facility] [address] [id number] [address] [place] [address], [place] [address] Jun, [facility] [address] [id number] [address] [place] [address], [place] [address] May, [facility] [address] [id number] [address] [place] [address], [place] [address] May, [facility] [address] [id number] [address] [place] [address], [place] [address] May, [facility] [address] [id number] [address] [place] [address], [place] [address] May, [facility] [address] [id number] [address] [place] [address], [place] [id number] May, [facility] [address] [id number] [address] [place] [address], [place] [id number] May, [facility] [address] [id number] [address] [place] [address], [place] [address] May, [facility] [address] [id number] [address] [place] [address], [place] [id number] May, [facility] [address] [id number] [address] [place] [address], [place] [address] May, [facility] [address] [id number] [address] [place] [address], [place] [address] May, [facility] [address] [id number] [address] [place] [address], [place] [address] May, [facility] [address] [id number] [address] [place] [address], [place] [id number] May, [facility] [address] [id number] [address] [place] [address], [place] [address] Apr, [facility] [address] [id number] [address] [place] [address], [place] [address] Apr, [facility] [address] [id number] [address] [place] [address], [place] [address] Apr, [facility] [address] [id number] [address] [place] [address], [place] [id number] Apr, [facility] [address] [id number] [address] [place] [address], [place] [address] Apr, [facility] [address] [id number] [address] [place] [id number] Apr, [facility] [address] [id number] [address] [place] [address], [place] [id number] 14 Apr, 2014 [facility] [address] [id number] [address] [place] [id number] 14 Apr, 2014 [facility] [address] [id number] [address] [place] [address], [place] [address] Apr, [facility] [address] [id number] [address] [place] [address], [place] [address] Apr, [facility] [address] [id number] [address] [place] [address], [place] [address] Apr, [facility] [address] [id number] [address] [place] [address], [place] [id number] Apr, [facility] [address] [id number] [address] [place] [id number] Mar, [facility] [address] [id number] [address] [place] [address], [place] [address] Mar, [facility] [address] [id number] [address] [place] [address], [place] [address] Mar, [facility] [address] [id number] [address] [place] [id number] Mar, [facility] [address] [id number] [address] [place] [id number] 10 Feb, 2014 [facility] [address] [id number] [address] [place] [id number] 10 Feb, 2013 [facility] [address] [id number] [address] [place] [id number] 05 Sep2013 [facility] [address] [id number] [address] [place] [address], [place] [id number] 05 Sep, 2013 [facility] [address] [id number] [address] [place] [address], [place] [id number] 05 Sep, 2013 [facility] [address] [id number] [facility] [place] [address] Feb, [facility] [address] [id number] [facility] [place] [address] Jan, [facility] [address] [id number] [facility] [place] [address] Jan, [facility] [address] [id number] [facility] [place] [address] Jan, [facility] [address] [id number] [facility] [place] [address] Jan, [facility] [address] [id number] [address] [place] [address], [place] [address] Jan, [facility] [address] [id number] [address] [place] [address], [place] [address] Jan, [facility] [address] [id number] [address] [place] [address], [place] [address] Jan, [facility] [address] [id number] [address] [place] [address], [place] [address] Jan, [facility] [address] [id number] [address] [place] [address], [place] [address] Jan, [facility] [address] [id number] [address] [place] [address], [place] [address] Jan, [facility] [address] [id number] [address] [place] [address], [place] [address] Jan, [facility] [address] [id number] [address] [place] [address], [place] [address] Jan, [facility] [address] [id number] [address] [place] [address], [place] [address] Jan, [facility] [address] [id number] [address] [place] [address], [place] [address] Jan, [facility] [address] [id number] [address] [place] [address], [place] [address] Dec, [facility] [address] [id number] [facility] [place] [address] Dec, [facility] [address] [id number] [facility] [place] [address] Dec, [facility] [address] [id number] [address] [place] [address], [place] [address] Dec, [facility] [address] [id number] [address] [place] [address], [place] [address] Nov, [facility] [address] [id number] [address] [place] [address], [place] [address] Nov, [facility] [address] [id number] [address] [place] [address], [place] [address] Nov, [facility] [address] [id number] [address] [place] [address], [place] [address] Nov, [facility] [address] [id number] [address] [place] [address], [place] [address] Nov, [facility] [address] [id number] [address] [place] [address], [place] [address] October, [facility] [address] [id number] [address] [place] [address], [place] [address] October, [facility] [address] [id number] [address] [place] [address], [place] [address] October, [facility] [address] [id number] [address] [place] [address], [place] [address] October, [facility] [address] [id number] [address] [place] [address], [place] [address] October, [facility] [address] [id number] [address] [place] [address], [place] [address] October, [facility] [address] [id number] [address] [place] [address], [place] [address] October, [facility] [address] [id number] [address] [place] [address], [place] [address] October, [facility] [address] [id number] [address] [place] [address], [place] [address] October, [facility] [address] [id number] [address] [place] [address], [place] [address] October, [facility] [address] [id number] [address] [place] [address], [place] [address] October, [facility] [address] [id number] [address] [place] [address], [place] [address] October, [facility] [address] [id number] [address] [place] [address], [place] [address] October, [facility] [address] [id number] [address] [place] [address], [place] [address] October, [facility] [address] [id number] [address] [place] [address], [place] [address] Sep, [facility] [address] [id number] [address] [place] [address], [place] [address] Sep, [facility] [address] [id number] [address] [place] [address], [place] [address] Sep, [facility] [address] [id number] [address] [place] [address], [place] [address] Sep, [facility] [address] [id number] [address] [place] [address], [place] [address] Sep, [facility] [address] [id number] [address] [place] [address], [place] [address] Sep, [facility] [address] [id number] [address] [place] [address], [place] [address] Sep, [facility] [address] [id number] [address] [place] [address], [place] [address] Sep, [facility] [address] [id number] [address] [place] [address], [place] [address] Sep, [facility] [address] [id number] [address] [place] [address], [place] [address] Sep, [facility] [address] [id number] [address] [place] [address], [place] [address] Sep, [facility] [address] [id number] [address] [place] [address], [place] [address] Sep, [facility] [address] [id number] [address] [place] [address], [place] [address] Sep, [facility] [address] [id number] [address] [place] [address], [place] [address] Sep, [facility] [address] [id number] [address] [place] [address], [place] [address] Sep, [facility] [address] [id number] [address] [place] [address], [place] [address] Aug, [facility] [address] [id number] [address] [place] [address], [place] [address] Aug, [facility] [address] [id number] [address] [place] [address], [place] [address] Aug, [facility] [address] [id number] [address] [place] [address], [place] [address] Aug, [facility] [address] [id number] [address] [place] [address], [place] [address] Jul, [facility] [address] [id number] [address] [place] [address], [place] [address] Jul, [facility] [address] [id number] [address] [place] [address], [place] [address] Jul, [facility] [address] [id number] [address] [place] [address], [place] [address] Jul, [facility] [address] [id number] [address] [place] [address], [place] [address] Jun, [facility] [address] [id number] [address] [place] [address] 15 Jun, 2013 [facility] [address] [id number] [address] [place] [address], [place] [address] 15 Jun, 2013 [facility] [address] [id number] [address] [place] [address], [place] [address] 15 Jun, 2013 [facility] [address] [id number] [address] [place] [address], [place] [address] Jun, [facility] [address] [id number] [address] [place] [address], [place] [address] Jun, [facility] [address] [id number] [address] [place] [address], [place] [address] Jun, [facility] [address] [id number] [address] [place] [address], [place] [address] Jun, [facility] [address] [id number] [address] [place] [address], [place] [address] 20 May, 2013 [facility] [address] [id number] [address] [place] [address], [place] [address] 20 May, 2013 [facility] [address] [id number] [address] [place] [address], [place] [address] 18 May, 2013 [facility] [address] [id number] [address] [place] [address], [place] [address] 18 May, 2013 [facility] [address] [id number] [address] [place] [address], [place] [address] 17 May, 2013 [facility] [address] [id number] [address] [place] [id number] 17 May, 2013 [facility] [address] [id number] [address] [place] [address], [place] [address] 17 May, 2013 [facility] [address] [id number] [address] [place] [address], [place] [address] 17 May, 2013 [facility] [address] [id number] [address] [place] [address], [place] [address] 16 May, 2013 [facility] [address] [id number] [address] [place] [address], [place] [address] 16 May, 2013 [facility] [address] [id number] [address] [place] [address], [place] [address] 14 May, 2013 [facility] [address] [id number] [address] [place] [address], [place] [address] 14 May, 2013 [facility] [address] [id number] [address] [place] [address], [place] [address] 13 May, 2013 [facility] [address] [id number] [address] [place] [address], [place] [address] 13 May, 2013 [facility] [address] [id number] [address] [place] [address], [place] [address] 12 May, 2013 [facility] [address] [id number] [address] [place] [address], [place] [address] 12 May, 2013 [facility] [address] [id number] [address] [place] [address], [place] [address] 11 May, 2013 [facility] [address] [id number] [address] [place] [address], [place] [address] 11 May, 2013 [facility] [address] [id number] [address] [place] [address], [place] [address] 26 Apr, 2013 [facility] [address] [id number] [address] [place] [address], [place] [address] Apr, [facility] [address] [id number] [address] [place] [address], [place] [address] Apr, [facility] [address] [id number] [address] [place] [address], [place] [address] Apr, [facility] [address] [id number] [address] [place] [address], [place] [address] 27 Aug, 2012 [facility] [address] [id number] [address] [place] [address], [place] [address] 18 Aug, 2012 [facility] [address] [id number] [address] [place] [address], [place] [address] Aug, [facility] [address] [id number] [address] [place] [address], [place] [address] 05 Aug, 2012 [facility] [address] [id number] [address] [place] [address], [place] [address] Jul, [facility] [address] [id number] [address] [place] [address], [place] [address] Jun, [facility] [address] [id number] [address] [place] [address], [place] [address] Jun, [facility] [address] [id number] [address] [place] [address], [place] [address] Jun, [facility] [address] [id number] [address] [place] [address], [place] [address] Jun, [facility] [address] [id number] [address] [place] [address], [place] [address] May, [facility] [address] [id number] [address] [place] [address], [place] [address] May, [facility] [address] [id number] [address] [place] [address], [place] [address] May, [facility] [address] [id number] [address] [place] [address], [place] [address] May, [facility] [address] [id number] [address] [place] [address], [place] [address] May, [facility] [address] [id number] [address] [place] [address], [place] [address] May, [facility] [address] [id number] [address] [place] [address], [place] [address] May, [facility] [address] [id number] [address] [place] [address], [place] [address] Apr, [facility] [address] [id number] [address] [place] [address], [place] [address] Apr, [facility] [address] [id number] [address] [place] [address] Apr, [facility] [address] [id number] [address] [place] [address], [place] [address] Apr, [facility] [address] [id number] [address] [place] [address] Apr, [facility] [address] [id number] [address] [place] [address] Apr, [facility] [address] [id number] [address] [place] [address], [place] [address] Apr, [facility] [address] [id number] [address] [place] [address], [place] [address] Mar, [facility] [address] [id number] [address] [place] [address], [place] [address] Mar, [facility] [address] [id number] [address] [place] [address], [place] [address] Mar, [facility] [address] [id number] [address] [place] [address] Mar, [facility] [address] [id number] [address] [place] [address], [place] [address] Mar, [facility] [address] [id number] [address] [place] [address] Mar, [facility] [address] [id number] [address] [place] [address], [place] [address] 17 Mar, 2012 [facility] [address] [id number] [address] [place] [address] 17 Mar, 2012 [facility] [address] [id number] [address] [place] [address] 15 Mar, 2012 [facility] [address] [id number] [address] [place] [address] 15 Mar, 2012 [facility] [address] [id number] [address] [place] [address] Mar, [facility] [address] [id number] [address] [place] [address], [place] [address] Mar, [facility] [address] [id number] [address] [place] [address], [place] [address] Feb, [facility] [address] [id number] [address] [place] [address], [place] [address] Jan, [facility] [address] [id number] [address] [place] [address], [place] [address] Jan, [facility] [address] [id number] [address] [place] [address], [place] [address] Jan, [facility] [address] [id number] [address] [place] [address], [place] [address] Jan, [facility] [address] [id number] [address] [place] [address], [place] [address] Jan, [facility] [address] [id number] [address] [place] [address], [place] [address] Dec, [facility] [address] [id number] [address] [place] [address], [place] [address] Dec, [facility] [address] [id number] [address] [place] [address], [place] [address] Nov, [facility] [address] [id number] [address] [place] [address], [place] [address] Nov, [facility] [address] [id number] [address] [place] [address], [place] [address] Nov, [facility] [address] [id number] [address] [place] [address], [place] [address] October, [facility] [address] [id number] [address] [place] [address], [place] [address] October, [facility] [address] [id number] [address] [place] [address], [place] [address] October, [facility] [address] [id number] [address] [place] [address], [place] [address] October, [facility] [address] [id number] [address] [place] [address], [place] [address] October, [facility] [address] [id number] [address] [place] [address], [place] [address] October, [facility] [address] [id number] [address] [place] [address], [place] [address] October, [facility] [address] [id number] [address] [place] [address], [place] [address] Sep, [facility] [address] [id number] [address] [place] [address], [place] [address] Sep, [facility] [address] [id number] [address] [place] [address], [place] [address] Sep, [facility] [address] [id number] [address] [place] [address], [place] [address] 25 Sep, 2011 [facility] [address] [id number] [address] [place] [address], [place] [address] 24 Sep, 2011 [facility] [address] [id number] [address] [place] [address], [place] [address] 19 Sep, 2011 [facility] [address] [id number] [address] [place] [address], [place] [address] 17 Sep, 2011 [facility] [address] [id number] [address] [place] [address], [place] [address] 16 Sep, 2011 [facility] [address] [id number] [address] [place] [address], [place] [id number] 16 Sep, 2011 [facility] [address] [id number] [address] [place] [address], [place] [id number] 14 Sep, 2011 [facility] [address] [id number] [address] [place] [address], [place] [address] 13 Sep, 2011 [facility] [address] [id number] [address] [place] [address], [place] [id number] 10 Sep, 2011 [facility] [address] [id number] [address] [place] [address], [place] [id number] 09 Sep, 2011 [facility] [address] [id number] [address] [place] [address], [place] [address] 27 Aug, 2011 [facility] [address] [id number] [address] [place] [address], [place] [address] Aug, [facility] [address] [id number] [address] [place] [address], [place] [id number] 08 Aug, 2011 [facility] [address] [id number] [address] [place] [address], [place] [id number] 06 Aug, 2011 [facility] [address] [id number] [address] [place] [address], [place] [id number] 28 Jul, 2011 [facility] [address] [id number] [address] [place] [address], [place] [id number] 22 Jul, 2011 [facility] [address] [id number] [address] [place] [address], [place] [address] 16 Jul, 2011 [facility] [address] [id number] [address] [place] [address], [place] [id number] 15 Jul, 2011 [facility] [address] [id number] [address] [place] [address], [place] [id number] 14 Jul, 2011 [facility] [address] [id number] [address] [place] [address], [place] [id number] 10 Jul, 2011 [facility] [address] [id number] [address] [place] [address], [place] [address] Jun, [facility] [address] [id number] [address] [place] [address], [place] [address] Jun, [facility] [address] [id number] [address] [place] [address], [place] [address] Jun, [facility] [address] [id number] [address] [place] [address], [place] [address] Jun, [facility] [address] [id number] [address] [place] [address], [place] [address] Jun, [facility] [address] [id number] [address] [place] [address], [place] [address] 27 May, 2011 [facility] [address] [id number] [address] [place] [address], [place] [address] May, [facility] [address] [id number] [address] [place] [address], [place] [address] 14 May, 2011 [facility] [address] [id number] [address] [place] [address], [place] [address] 14 May, 2011 [facility] [address] [id number] [address] [place] [address], [place] [address] May, [facility] [address] [id number] [address] [place] [address], [place] [address] May, [facility] [address] [id number] [address] [place] [address], [place] [id number] 05 May, 2011 [facility] [address] [id number] [address] [place] [address], [place] [address] 15 Apr, 2011 [facility] [address] [id number] [address] [place] [address], [place] [id number] 15 Apr, 2011 [facility] [address] [id number] [address] [place] [address], [place] [address] Apr, [facility] [address] [id number] [address] [place] [id number] Apr, [facility] [address] [id number] [address] [place] [id number] 04 Apr, 2011 [facility] [address] [id number] [address] [place] [address], [place] [address] Apr, [facility] [address] [id number] [address] [place] [address], [place] [address] Mar, [facility] [address] [id number] [address] [place] [address], [place] [address] Mar, [facility] [address] [id number] [address] [place] [address], [place] [address] 12 Mar, 2011 [facility] [address] [id number] [address] [place] [address], [place] [address] Mar, [facility] [address] [id number] [address] [place] [address], [place] [address] Jan, [facility] [address] [id number] [address] [place] [address], [place] [id number] 19 Dec, 2010 [facility] [address] [id number] [address] [place] [address], [place] [address] 13 Dec, 2010 [facility] [address] [id number] [address] [place] [address], [place] [address] October, [facility] [address] [id number] [address] [place] [address], [place] [address] 20 Sep, 2010 [facility] [address] [id number] [address] [place] [address], [place] [address] 14 Sep, 2010 [facility] [address] [id number] [address] [place] [address], [place] [address] 17 Jul, 2010 [facility] [address] [id number] [address] [place] [address], [place] [id number] 16 Jul, 2010 [facility] [address] [id number] [address] [place] [address], [place] [address] 31 May, 2010 [facility] [address] [id number] [address] [place] [address], [place] [address] May, [facility] [address] [id number] [address] [place] [address], [place] [address] May, [facility] [address] [id number] [address] [place] [address], [place] [address] 06 May, 2010 [facility] [address] [id number] [address] [place] [address], [place] [address] Apr, [facility] [address] [id number] [address] [place] [address], [place] [id number] Apr, [facility] [address] [id number] [address] [place] [address], [place] [id number] Apr, [facility] [address] [id number] [address] [place] [address], [place] [id number] Apr, [facility] [address] [id number] [address] [place] [address], [place] [id number] Apr, [facility] [address] [id number] [address] [place] [address], [place] [id number] Mar, [facility] [address] [id number] [address] [place] [address], [place] [id number] 14 Mar, 2010 [facility] [address] [id number] [address] [place] [address], [place] [id number] 13 Mar, 2010 [facility] [address] [id number] [address] [place] [address], [place] [id number] Mar, [facility] [address] [id number] [address] [place] [id number] Jan, [facility] [address] [id number] [address] [place] [address], [place] [id number] Dec, [facility] [address] [id number] [address] [place] [id number] Sep, [facility] [address] [id number] [address] [place] [id number] 08 May, 2009 [facility] [address] [id number] [address] [place] [id number] 06 May, 2009 [facility] [address] [id number] [address] [place] [id number] May, [facility] [address] [id number] [address] [place] [id number] Apr, [facility] [address] [id number] [address] [place] [id number] 17 Apr, 2009 [facility] [address] [id number] [address] [place] [phone] Apr, [facility] [address] [facility] [id number] [address] [place] [phone] Apr, [facility] [address] [facility] [id number] [address] [place] [phone] Apr, [facility] [address] [facility] [id number] [address] [place] [phone] Mar, [facility] [address] [facility] [id number] [address] [place] [phone] Mar, [facility] [address] [facility] [id number] [address] [place] [id number] Jul, IMMUNIZATIONS No Known Immunizations SOCIAL HISTORY Never Assessed REASON FOR VISIT PLAN OF CARE VITAL SIGNS Height 62 in 2012-04-10 Weight 234.25 lbs 2012-04-10 Heart Rate 78 bpm 2012-04-10 Respiratory Rate 18 2012-04-10 Blood pressure systolic 105 mmHg 2012-04-10 Blood pressure diastolic 78 mmHg 2012-04-10 MEDICATIONS Unknown Medications RESULTS No Results PROCEDURES [...] and replaced VC 10/2018 Hospitalization History Cellulitis-[facility] Hospitalization History [facility]- Abd pain 03/07/2017 Hospitalization History [facility]- Abd pain 03/14/2017 Hospitalization History [facility]- No bowel movement, rash 04/13/2017 Hospitalization History [facility]- Abd pain r/ t kidney surgery on 04/10/17 04/17/2017 Hospitalization History [facility]- Abd pain r/ t kidney surgery on 04/10/17 04/18/2017 Hospitalization History [facility]- Lower abd pain 04/17 Hospitalization History [facility]- Cannot urinate 05/17 Hospitalization History [facility]- Pancreatitis Sx Hospitalization History [facility]- Stomach pain 2017 Hospitalization History [facility]- Left side pain 07/19 Hospitalization History [facility]- Incision site infec tion 08/30/2017 Hospitalization History [facility]- Post Op Serom a/Hematoma Left Abdomen. Discharged 09/04/17- Dr Daniel 09/02/2017 Hospitalization History [facility]- Right shoulder and back pain 10/22/2017 Hospitalization History [facility]- Shoulder/Back pain 11/11/2017 Hospitalization History [facility]- Right shoulder blad e pain 12/04/2017 Hospitalization History [facility]- C-Diff 12/13/2017 Hospitalization History C diff et MRSA 12/27/2017 Hospitalization History H Bowel Obstruction 10/2018 Hospitalization History [facility]- Abdominal pain and nausea 01/08/2019 Hospitalization History [facility] for fluids for dehydration/headac he 11/2019
--- OUTSIDE RECORDS SUMMARY | 2020-01-21 18:05 | XMS REPORT ---
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 [facility] [address] [facility] [id number] [address] [place] [phone] May, Other viral agents as the ca use of diseases classified elsewhere B97.89 and Acute upper respiratory infection, unspecified J06.9 [facility] [place] [address] [facility] [id number] [address] [place] [address] Mar, Nausea R11.0 [facility] [place] [address] [facility] [id number] [address] [place] [address] Dec, Hives L50.9 [place] [address] [facility] [id number] [address] [place] [address] Dec, [facility] [place] [address] [place] [id number] [address] [place] [address] Dec, Cutaneous abscess of limb, u nspecified L02.419 ; Cellulitis of unspecified part of limb L03.119 ; Encounter for incision and drainage procedure Z01.89 and Encounter for recheck of abscess following i ncision and drainage Z09 [facility] [place] [address] [facility] [id number] [address] [place] [address] Dec, Abscess of leg, right L02.41 5 [place] [address] [place] [id number] [address] [place] [address] Dec, Cellulitis of unspecified pa rt of limb L03.119 and Cutaneous abscess of limb, unspecified L02.419 [place] [address] [facility] [id number] [address] [place] [address] Dec, [place] [address] [facility] [id number] [address] [place] [address] Dec, [facility] [place] [address] [facility] [id number] [address] [place] [address] Aug, [place] [address] [place] [id number] [address] [place] [address] Aug, [facility] [address] [place] [id number] [address] [place] [address] Jul, Pain in unspecified wrist M2 5.539 and Back pain, thoracic M54.6 [facility] [address] [facility] [id number] [address] [place] [address] 13 Jun, 2015 Strain of right wrist, initi al encounter S66.911A [facility] [address] [place] [id number] [address] [place] [address] Jun, Chronic pancreatitis, unspec ified pancreatitis type K86.1 ; Hirsuties L68.0 ; Morbid (severe) obesity due to excess calories E66.01 ; Chronic pancreatitis K86.1 and Asthma J45.909 [place] [address] [place] [id number] [address] [place] [address] May, [place] [address] [place] [id number] [address] [place] [address] May, Hyperlipidemia, mixed E78.2 and Muscle spasm of back M62.830 [place] [address] [place] [id number] [address] [place] [address] Apr, [place] [address] [place] [id number] [address] [place] [address] Apr, Torticollis M43.6 [place] [address] [place] [id number] [address] [place] [address] Apr, Right-sided thoracic back pa in M54.6 [facility] [address] [facility] [id number] [address] [place] [address] Mar, Rash R21 [place] [address] [facility] [id number] [address] [place] [address] Mar, [place] [address] [place] [id number] [address] [place] [address] Jan, [facility] [address] [place] [id number] [address] [place] [address] Dec, [facility] [address] [facility] [id number] [address] [place] [address] Dec, Urinary frequency 788.41 and Nocturia more than twice per night 788.43 [facility] [address] [facility] [id number] [address] [place] [address] Nov, [facility] [address] [facility] [id number] [address] [place] [address] Nov, [facility] [address] [facility] [id number] [address] [place] [address] Nov, Abdominal pain 789.00 [facility] [address] [place] [id number] [address] [place] [address] October, TDAP DX V06.1 [facility] [address] [place] [id number] [address] [place] [address] October, [facility] [address] [place] [id number] [address] [place] [id number] October, Disturbance of skin sensatio n 782.0 ; Wrist pain, right 719.43 ; Hyperlipidemia 272.4 and Skin lesion of face 709.9 [facility] [address] [facility] [id number] [address] [place] [address] Sep, [facility] [address] [place] [id number] [address] [place] [address] Sep, [facility] [address] [facility] [id number] [address] [place] [phone] Aug, [facility] [address] [facility] [id number] [address] [place] [phone] Aug, [facility] [address] [place] [id number] [address] [place] [address] Aug, [facility] [address] [facility] [id number] [address] [place] [address] Aug, [facility] [address] [id number] [address] [place] [address], [place] [address] 16 Aug, 2014 [facility] [address] [id number] [address] [place] [address], [place] [address] 16 Aug, 2014 [facility] [address] [id number] [address] [place] [address], [place] [address] 14 Aug, 2014 [facility] [address] [id number] [address] [place] [address], [place] [address] 14 Aug, 2014 [facility] [address] [id number] [address] [place] [address], [place] [address] 11 Aug, 2014 [facility] [address] [id number] [address] [place] [address], [place] [address] 11 Aug, 2014 [facility] [address] [id number] [address] [place] [address], [place] [address] 04 Aug, 2014 [facility] [address] [id number] [address] [place] [address], [place] [address] 04 Aug, 2014 [facility] [address] [id number] [address] [place] [address], [place] [address] 03 Aug, 2014 [facility] [address] [id number] [address] [place] [address], [place] [address] 03 Aug, 2014 [facility] [address] [id number] [address] [place] [address], [place] [address] 23 Jul, 2014 [facility] [address] [id number] [address] [place] [address], [place] [address] 23 Jul, 2014 [facility] [address] [id number] [address] [place] [address], [place] [address] 13 Jul, 2014 [facility] [address] [id number] [address] [place] [address], [place] [address] 13 Jul, 2014 [facility] [address] [id number] [address] [place] [address], [place] [address] 04 Jul, 2014 [facility] [address] [id number] [address] [place] [address] 04 Jul, 2014 [facility] [address] [id number] [address] [place] [address], [place] [address] Jun, [facility] [address] [id number] [address] [place] [address] Jun, [facility] [address] [id number] [address] [place] [address], [place] [address] Jun, [facility] [address] [id number] [address] [place] [address], [place] [address] Jun, [facility] [address] [id number] [address] [place] [address], [place] [address] Jun, [facility] [address] [id number] [address] [place] [address], [place] [address] Jun, [facility] [address] [id number] [address] [place] [address] Jun, [facility] [address] [id number] [address] [place] [address], [place] [address] Jun, [facility] [address] [id number] [address] [place] [address], [place] [address] May, [facility] [address] [id number] [address] [place] [address], [place] [address] May, [facility] [address] [id number] [address] [place] [address], [place] [address] 18 May, 2014 [facility] [address] [id number] [address] [place] [address], [place] [address] 18 May, 2014 [facility] [address] [id number] [address] [place] [address], [place] [address] 15 May, 2014 [facility] [address] [id number] [address] [place] [address], [place] [address] 15 May, 2014 [facility] [address] [id number] [address] [place] [address], [place] [address] 11 May, 2014 [facility] [address] [id number] [address] [place] [address], [place] [address] May, [facility] [address] [id number] [address] [place] [address], [place] [address] May, [facility] [address] [id number] [address] [place] [address], [place] [address] May, [facility] [address] [id number] [address] [place] [address], [place] [address] May, [facility] [address] [id number] [address] [place] [address], [place] [address] May, [facility] [address] [id number] [address] [place] [address], [place] [address] Apr, [facility] [address] [id number] [address] [place] [address], [place] [address] Apr, [facility] [address] [id number] [address] [place] [address], [place] [address] Apr, [facility] [address] [id number] [address] [place] [address], [place] [address] Apr, [facility] [address] [id number] [address] [place] [address], [place] [address] Apr, [facility] [address] [id number] [address] [place] [address], [place] [address] Apr, [facility] [address] [id number] [address] [place] [address], [place] [address] Apr, [facility] [address] [id number] [address] [place] [address], [place] [address] Apr, [facility] [address] [id number] [address] [place] [address], [place] [address] Apr, [facility] [address] [id number] [address] [place] [address], [place] [address] Apr, [facility] [address] [id number] [address] [place] [address] [address] Apr, [facility] [address] [id number] [address] [place] [address], [place] [address] Apr, [facility] [address] [id number] [address] [place] [address], [place] [address] Mar, [facility] [address] [id number] [address] [place] [address], [place] [address] Mar, [facility] [address] [id number] [address] [place] [address], [place] [address] Mar, [facility] [address] [id number] [address] [place] [address], [place] [address] Mar, [facility] [address] [id number] [address] [place] [address], [place] [address] Feb, [facility] [address] [id number] [address] [place] [address], [place] [address] Feb, [facility] [address] [id number] [address] [place] [address], [place] [address] 05 Feb, 2013 [facility] [address] [id number] [address] [place] [address], [place] [address] 05 Feb, 2014 [facility] [address] [id number] [address] [place] [address], [place] [address] 05 Feb, 2014 [facility] [address] [id number] [address] [place] [address], [place] [address] Feb, 2013 [facility] [address] [id number] [address] [place] [address], [place] [address] Jan, [facility] [address] [id number] [address] [place] [address], [place] [address] Jan, [facility] [address] [id number] [address] [place] [address], [place] [address] Jan, [facility] [address] [id number] [address] [place] [address], [place] [address] Jan, [facility] [address] [id number] [facility] [place] [address] Jan, [facility] [address] [id number] [address] [place] [address], [place] [address] Jan, [facility] [address] [id number] [address] [place] [address], [place] [address] Jan, [facility] [address] [id number] [address] [place] [address], [place] [address] Jan, [facility] [address] [id number] [address] [place] [address], [place] [address] Jan, [facility] [address] [id number] [address] [place] [address], [place] [address] Jan, [facility] [address] [id number] [address] [place] [address], [place] [address] Jan, [facility] [address] [id number] [address] [place] [address], [place] [address] Jan, [facility] [address] [id number] [address] [place] [address], [place] [address] Jan, [facility] [address] [id number] [address] [place] [address], [place] [address] Jan, [facility] [address] [id number] [address] [place] [address], [place] [address] Dec, [facility] [address] [id number] [address] [place] [address], [place] [address] Dec, [facility] [address] [id number] [address] [place] [address], [place] [address] Dec, [facility] [address] [id number] [address] [place] [address], [place] [address] Dec, [facility] [address] [id number] [address] [place] [address], [place] [address] Nov, [facility] [address] [id number] [address] [place] [address], [place] [address] Nov, [facility] [address] [id number] [address] [place] [address], [place] [address] Nov, [facility] [address] [id number] [address] [place] [address], [place] [address] Nov, [facility] [address] [id number] [address] [place] [address], [place] [address] Nov, [facility] [address] [id number] [address] [place] [address], [place] [address] October, [facility] [address] [id number] [address] [place] [address], [place] [address] October, [facility] [address] [id number] [address] [place] [address], [place] [address] October, [facility] [address] [id number] [address] [place] [address], [place] [address] October, [facility] [address] [id number] [address] [place] [address], [place] [address] October, [facility] [address] [id number] [address] [place] [address], [place] [address] October, [facility] [address] [id number] [address] [place] [address], [place] [address] October, [facility] [address] [id number] [address] [place] [address], [place] [address] October, [facility] [address] [id number] [address] [place] [address], [place] [address] October, [facility] [address] [id number] [address] [place] [address], [place] [address] October, [facility] [address] [id number] [address] [place] [address], [place] [address] October, [facility] [address] [id number] [address] [place] [address], [place] [address] October, [facility] [address] [id number] [address] [place] [address], [place] [address] October, [facility] [address] [id number] [address] [address] October, [facility] [address] [id number] [address] [place] [address], [place] [address] Sep, [facility] [address] [id number] [address] [place] [address], [place] [address] Sep, [facility] [address] [id number] [address] [place] [address], [place] [address] Sep, [facility] [address] [id number] [address] [place] [address], [place] [address] Sep, [facility] [address] [id number] [address] [place] [address], [place] [address] Sep, [facility] [address] [id number] [address] [place] [address], [place] [address] Sep, [facility] [address] [id number] [address] [place] [address], [place] [address] Sep, [facility] [address] [id number] [address] [place] [address], [place] [address] Sep, [facility] [address] [id number] [address] [place] [address], [place] [address] Sep, [facility] [address] [id number] [address] [place] [address], [place] [address] Sep, [facility] [address] [id number] [address] [place] [address], [place] [address] Sep, [facility] [address] [id number] [address] [place] [address], [place] [address] Sep, [facility] [address] [id number] [address] [place] [address], [place] [address] Sep, [facility] [address] [id number] [address] [place] [address], [place] [address] Sep, [facility] [address] [id number] [address] [place] [address], [place] [address] Sep, [facility] [address] [id number] [address] [place] [address], [place] [address] Aug, [facility] [address] [id number] [address] [place] [address], [place] [address] Aug, [facility] [address] [id number] [address] [place] [address], [place] [address] Aug, [facility] [address] [id number] [address] [place] [address], [place] [address] Aug, [facility] [address] [id number] [address] [place] [address], [place] [address] Jul, [facility] [address] [id number] [address] [place] [address], [place] [address] Jul, [facility] [address] [id number] [address] [place] [address], [place] [address] Jul, [facility] [address] [id number] [address] [place] [address], [place] [address] Jul, [facility] [address] [id number] [address] [place] [address], [place] [address] Jun, [facility] [address] [id number] [address] [place] [address], [place] [address] Jun, [facility] [address] [id number] [address] [place] [address], [place] [address] Jun, [facility] [address] [id number] [address] [place] [address], [place] [address] Jun, [facility] [address] [id number] [address] [place] [address], [place] [address] Jun, [facility] [address] [id number] [address] [place] [address], [place] [address] Jun, [facility] [address] [id number] [address] [place] [address], [place] [address] 08 Jun, 2013 [facility] [address] [id number] [address] [place] [address], [place] [address] 08 Jun, 2013 [facility] [address] [id number] [address] [place] [address], [place] [address] 20 May, 2013 [facility] [address] [id number] [address] [place] [address], [place] [address] 20 May, 2013 [facility] [address] [id number] [address] [place] [address], [place] [address] 18 May, 2013 [facility] [address] [id number] [address] [place] [address], [place] [address] 18 May, 2013 [facility] [address] [id number] [address] [place] [address], [place] [address] 17 May, 2013 [facility] [address] [id number] [address] [place] [address], [place] [id number] 17 May, 2013 [facility] [address] [id number] [address] [place] [address], [place] [address] 17 May, 2013 [facility] [address] [id number] [address] [place] [address], [place] [address] 17 May, 2013 [facility] [address] [id number] [address] [place] [address], [place] [address] 16 May, 2013 [facility] [address] [id number] [address] [place] [address], [place] [address] 16 May, 2013 [facility] [address] [id number] [address] [place] [address], [place] [address] 14 May, 2013 [facility] [address] [id number] [address] [place] [address], [place] [address] 14 May, 2013 [facility] [address] [id number] [address] [place] [address], [place] [address] 13 May, 2013 [facility] [address] [id number] [address] [place] [address], [place] [address] 13 May, 2013 [facility] [address] [id number] [address] [place] [address], [place] [address] May, [facility] [address] [id number] [address] [place] [address], [place] [address] May, [facility] [address] [id number] [address] [place] [address], [place] [address] May, [facility] [address] [id number] [address] [place] [address], [place] [address] May, [facility] [address] [id number] [address] [place] [address], [place] [address] Apr, [facility] [address] [id number] [address] [place] [address], [place] [address] Apr, [facility] [address] [id number] [address] [place] [address], [place] [address] Apr, [facility] [address] [id number] [address] [place] [address], [place] [address] Apr, [facility] [address] [id number] [address] [place] [address], [place] [address] Aug, [facility] [address] [id number] [address] [place] [address], [place] [address] Aug, [facility] [address] [id number] [address] [place] [address], [place] [address] Aug, [facility] [address] [id number] [address] [place] [address], [place] [address] 05 Aug, 2012 [facility] [address] [id number] [address] [place] [address], [place] [address] Jul, [facility] [address] [id number] [address] [place] [address], [place] [address] Jun, [facility] [address] [id number] [address] [place] [address], [place] [address] Jun, [facility] [address] [id number] [address] [place] [address], [place] [address] Jun, [facility] [address] [id number] [address] [place] [address], [place] [address] Jun, [facility] [address] [id number] [address] [place] [address], [place] [address] May, [facility] [address] [id number] [address] [place] [address], [place] [address] May, [facility] [address] [id number] [address] [place] [address], [place] [address] May, [facility] [address] [id number] [address] [place] [address], [place] [address] May, [facility] [address] [id number] [address] [place] [address], [place] [address] May, [facility] [address] [id number] [address] [place] [address], [place] [address] May, [facility] [address] [id number] [address] [place] [address], [place] [address] May, [facility] [address] [id number] [address] [place] [address], [place] [address] Apr, [facility] [address] [id number] [address] [place] [address], [place] [address] Apr, [facility] [address] [id number] [address] [place] [address], [place] [address] Apr, [facility] [address] [id number] [address] [place] [address], [place] [address] Apr, [facility] [address] [id number] [address] [place] [address], [place] [address] Apr, [facility] [address] [id number] [address] [place] [address], [place] [address] Apr, [facility] [address] [id number] [address] [place] [address], [place] [address] Apr, [facility] [address] [id number] [address] [place] [address], [place] [address] Mar, [facility] [address] [id number] [address] [place] [address], [place] [address] Mar, [facility] [address] [id number] [address] [place] [address], [place] [address] Mar, [facility] [address] [id number] [address] [place] [address], [place] [address] Mar, [facility] [address] [id number] [address] [place] [address] Mar, [facility] [address] [id number] [address] [place] [address], [place] [address] Mar, [facility] [address] [id number] [address] [place] [address], [place] [address] Mar, [facility] [address] [id number] [address] [place] [address], [place] [address] Mar, [facility] [address] [id number] [address] [place] [address], [place] [address] Mar, [facility] [address] [id number] [address] [place] [address], [place] [address] Mar, [facility] [address] [id number] [address] [place] [address] Mar, [facility] [address] [id number] [address] [place] [address] Mar, [facility] [address] [id number] [address] [place] [address] Feb, [facility] [address] [id number] [address] [place] [address], [place] [address] Jan, [facility] [address] [id number] [address] [place] [address] 14 Jan, 2012 [facility] [address] [id number] [address] [place] [address], [place] [address] Jan, [facility] [address] [id number] [address] [place] [address], [place] [address] Jan, [facility] [address] [id number] [address] [place] [address], [place] [address] Jan, [facility] [address] [id number] [address] [place] [address], [place] [address] Dec, [facility] [address] [id number] [address] [place] [address], [place] [address] Dec, [facility] [address] [id number] [address] [place] [address], [place] [address] Nov, [facility] [address] [id number] [address] [place] [address], [place] [address] Nov, [facility] [address] [id number] [address] [place] [address], [place] [address] Nov, [facility] [address] [id number] [address] [place] [address], [place] [address] October, [facility] [address] [id number] [address] [place] [address], [place] [address] October, [facility] [address] [id number] [address] [place] [address], [place] [address] October, [facility] [address] [id number] [address] [place] [address], [place] [address] October, [facility] [address] [id number] [address] [place] [address], [place] [address] October, [facility] [address] [id number] [address] [place] [address], [place] [address] October, [facility] [address] [id number] [address] [place] [address], [place] [address] October, [facility] [address] [id number] [address] [place] [address], [place] [address] Sep, [facility] [address] [id number] [address] [place] [address], [place] [address] Sep, [facility] [address] [id number] [address] [place] [address], [place] [address] 26 Sep, 2011 [facility] [address] [id number] [address] [place] [address], [place] [address] 25 Sep, 2011 [facility] [address] [id number] [address] [place] [address], [place] [address] 24 Sep, 2011 [facility] [address] [id number] [address] [place] [address], [place] [address] 19 Sep, 2011 [facility] [address] [id number] [address] [place] [address], [place] [address] 17 Sep, 2011 [facility] [address] [id number] [address] [place] [address], [place] [address] 16 Sep, 2011 [facility] [address] [id number] [address] [place] [address], [place] [address] 16 Sep, 2011 [facility] [address] [id number] [address] [place] [address], [place] [address] 14 Sep, 2011 [facility] [address] [id number] [address] [place] [address], [place] [address] 13 Sep, 2011 [facility] [address] [id number] [address] [place] [address], [place] [address] 10 Sep, 2011 [facility] [address] [id number] [address] [place] [address], [place] [address] 09 Sep, 2011 [facility] [address] [id number] [address] [place] [address], [place] [address] 27 Aug, 2011 [facility] [address] [id number] [address] [place] [address], [place] [address] 12 Aug, 2011 [facility] [address] [id number] [address] [place] [address], [place] [address] 08 Aug, 2011 [facility] [address] [id number] [address] [place] [address], [place] [address] 06 Aug, 2011 [facility] [address] [id number] [address] [place] [address], [place] [address] 28 Jul, 2011 [facility] [address] [id number] [address] [place] [address], [place] [address] 22 Jul, 2011 [facility] [address] [id number] [address] [place] [address], [place] [address] 16 Jul, 2011 [facility] [address] [id number] [address] [place] [address], [place] [address] 15 Jul, 2011 [facility] [address] [id number] [address] [place] [address], [place] [address] 14 Jul, 2011 [facility] [address] [id number] [address] [place] [address], [place] [address] 10 Jul, 2011 [facility] [address] [id number] [address] [place] [address], [place] [address] 30 Jun, 2011 [facility] [address] [id number] [address] [place] [address], [place] [address] 05 Jun, 2011 [facility] [address] [id number] [address] [place] [address], [place] [address] 04 Jun, 2011 [facility] [address] [id number] [address] [place] [address], [place] [address] Jun, [facility] [address] [id number] [address] [place] [address], [place] [address] Jun, [facility] [address] [id number] [address] [place] [address], [place] [address] May, [facility] [address] [id number] [address] [place] [address], [place] [address] May, [facility] [address] [id number] [address] [place] [address], [place] [address] May, [facility] [address] [id number] [address] [place] [address], [place] [address] 14 May, 2011 [facility] [address] [id number] [address] [place] [address], [place] [address] May, [facility] [address] [id number] [address] [place] [address], [place] [address] May, [facility] [address] [id number] [address] [place] [address], [place] [address] May, [facility] [address] [id number] [address] [place] [address], [place] [address] Apr, [facility] [address] [id number] [address] [place] [address], [place] [address] Apr, [facility] [address] [id number] [address] [place] [address], [place] [address] Apr, [facility] [address] [id number] [address] [place] [address], [place] [address] Apr, [facility] [address] [id number] [address] [place] [address], [place] [address] Apr, [facility] [address] [id number] [address] [place] [address], [place] [address] Apr, [facility] [address] [id number] [address] [place] [address], [place] [address] Mar, [facility] [address] [id number] [address] [place] [address], [place] [address] Mar, [facility] [address] [id number] [address] [place] [address] Mar, [facility] [address] [id number] [address] [place] [address] Mar, [facility] [address] [id number] [address] [place] [address], [place] [address] Jan, [facility] [address] [id number] [address] [place] [address], [place] [address] Dec, [facility] [address] [id number] [address] [place] [address] Dec, [facility] [address] [id number] [address] [place] [address] October, [facility] [address] [id number] [address] [place] [address], [place] [address] Sep, [facility] [address] [id number] [address] [place] [address], [place] [address] 14 Sep, 2010 [facility] [address] [id number] [address] [place] [address], [place] [address] 17 Jul, 2010 [facility] [address] [id number] [address] [place] [address], [place] [address] 16 Jul, 2010 [facility] [address] [id number] [address] [place] [address], [place] [address] 31 May, 2010 [facility] [address] [id number] [address] [place] [address], [place] [address] May, [facility] [address] [id number] [address] [place] [address], [place] [address] May, [facility] [address] [id number] [address] [place] [address], [place] [address] May, [facility] [address] [id number] [address] [place] [address], [place] [address] Apr, [facility] [address] [id number] [address] [place] [address], [place] [address] Apr, [facility] [address] [id number] [address] [place] [address], [place] [address] Apr, [facility] [address] [id number] [address] [place] [address], [place] [address] Apr, [facility] [address] [id number] [address] [place] [address], [place] [address] Apr, [facility] [address] [id number] [address] [place] [address], [place] [address] Mar, [facility] [address] [id number] [address] [place] [address], [place] [address] 14 Mar, 2010 [facility] [address] [id number] [address] [place] [address], [place] [address] 13 Mar, 2010 [facility] [address] [id number] [address] [place] [address], [place] [address] 12 Mar, 2010 [facility] [address] [id number] [address] [place] [address], [place] [address] Jan, [facility] [address] [id number] [address] [place] [address], [place] [address] 15 Dec, 2009 [facility] [address] [id number] [address] [place] [address], [place] [address] Sep, [facility] [address] [id number] [address] [place] [address], [place] [address] 08 May, 2009 [facility] [address] [id number] [address] [place] [address], [place] [address] May, [facility] [address] [id number] [address] [place] [address], [place] [address] May, [facility] [address] [id number] [address] [place] [address], [place] [address] 17 Apr, 2009 [facility] [address] [id number] [address] [place] [address], [place] [address] 17 Apr, 2009 [facility] [address] [id number] [address] [place] [address], [place] [address] 10 Apr, 2009 [facility] [address] [id number] [address] [place] [address], [place] [address] 10 Apr, 2009 [facility] [address] [id number] [address] [place] [id number] 09 Apr, 2009 [facility] [address] [id number] [address] [place] [address], [place] [address] 15 Mar, 2009 [facility] [address] [id number] [address] [place] [id number] 15 Mar, 2009 [facility] [address] [id number] [address] [place] [id number] Jul, IMMUNIZATIONS No Known Immunizations SOCIAL HISTORY Never Assessed REASON FOR VISIT PLAN OF CARE VITAL SIGNS Height 62 in 2013-05-29 Weight 247.23 lbs 2013-05-29 Temperature 98.5 degrees Fahrenheit 2013-05-29 Heart Rate 80 bpm 2013-05-29 Respiratory Rate 18 2013-05-29 Blood pressure systolic 118 mmHg 2013-05-29 Blood pressure diastolic 78 mmHg 2013-05-29 MEDICATIONS Unknown Medications RESULTS No Results PROCEDURES [...] removed and replaced 10/2018 Hospitalization History Cellulitis-[facility] Hospitalization History [facility] [place]- Abd pain 03/07/2017 Hospitalization History [facility] [place]- Abd pain 03/14/2017 Hospitalization History [facility] [place]- No bowel movement, rash 04/13/2017 Hospitalization History [facility] [place]- Abd pain r/ t kidney surgery on 04/10/17 04/17/2017 Hospitalization History [facility]- Abd pain r/ t kidney surgery on 04/10/17 04/18/2017 Hospitalization History [facility] [place]- Lower abd pain 04/17 Hospitalization History [facility] [place]- Cannot urinate 05/17 Hospitalization History [facility]- Pancreatitis Sx Hospitalization History [facility]- Stomach pain 2017 Hospitalization History [facility]- Left side pain 07/19 Hospitalization History [facility]- Incision site infec tion 08/30/2017 Hospitalization History [facility]- Post Op Serom a/Hematoma Left Abdomen. Discharged 09/04/17- Dr Daniel 09/02/2017 Hospitalization History [facility]- Right shoulder and back pain 10/22/2017 Hospitalization History [facility]- Shoulder/Back pain 11/11/2017 Hospitalization History [facility]- Right shoulder blad e pain 12/04/2017 Hospitalization History [facility]- C-Diff 12/13/2017 Hospitalization History C diff et MRSA 12/27/2017 Hospitalization History [facility] Bowel Obstruction 10/2018 Hospitalization History [facility]- Abdominal pain and nausea 01/08/2019
--- OUTSIDE RECORDS SUMMARY | 2020-01-21 18:06 | XMS REPORT ---
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 as the ca use of diseases classified elsewhere B97.89 and Acute upper respiratory infection, unspecified J06.9 [facility] [place] [address] [address] [facility] [id number] [address] [place] [address] Mar, Nausea R11.0 [facility] N [facility] [id number] [address] [place] [address] Dec, Hives L50.9 [place] [address] [facility] [id number] [address] [place] [address] Dec, [facility] [place] [address] [address] [facility] [id number] [address] [place] [address] Dec, Cutaneous abscess of limb, u nspecified L02.419 ; Cellulitis of unspecified part of limb L03.119 ; Encounter for incision and drainage procedure Z01.89 and Encounter for recheck of abscess following i ncision and drainage Z09 [facility] [place] [address] [address] [facility] [id number] [address] [place] [address] Dec, Abscess of leg, right L02.41 [address] [place] [address] [facility] [id number] [address] [place] [address] 08 Dec, 2015 Cellulitis of unspecified pa rt of limb L03.119 and Cutaneous abscess of limb, unspecified L02.419 [place] [address] [facility] [id number] [address] [place] [address] Dec, [place] [address] [facility] [id number] [address] [place] [address] Dec, [facility] [place] [address] [address] [facility] [id number] [address] [place] [address] Aug, [place] [address] [facility] [id number] [address] [place] [address] Aug, [facility] [address] [place] [id number] [address] [place] [address] Jul, Pain in unspecified wrist M2 5.539 and Back pain, thoracic M54.6 [facility] [address] [facility] [id number] [address] [place] [address] 13 Jun, 2015 Strain of right wrist, initi al encounter S66.911A [facility] [address] [facility] [id number] [address] [place] [address] Jun, Chronic pancreatitis, unspec ified pancreatitis type K86.1 ; Hirsuties L68.0 ; Morbid (severe) obesity due to excess calories E66.01 ; Chronic pancreatitis K86.1 and Asthma J45.909 [place] [address] [place] [id number] [address] [place] [address] May, [place] [address] [place] [id number] [address] [place] [address] May, Hyperlipidemia, mixed E78.2 and Muscle spasm of back M62.830 [place] [address] [place] [id number] [address] [place] [address] Apr, [place] [address] [place] [id number] [address] [place] [address] 16 Apr, 2015 Torticollis M43.6 [place] [address] [place] [id number] [address] [place] [address] 09 Apr, 2015 Right-sided thoracic back pa in M54.6 [facility] [address] [facility] [id number] [address] [place] [address] Mar, Rash R21 [facility] [address] [facility] [id number] [address] [place] [address] Mar, [place] [address] [place] [id number] [address] [place] [address] Jan, [facility] [address] [place] [id number] [address] [place] [address] Dec, [facility] [address] [facility] [id number] [address] [place] [address] Dec, Urinary frequency 788.41 and Nocturia more than twice per night 788.43 [facility] [address] [facility] [id number] [address] [place] [address] Nov, [facility] [address] [facility] [id number] [address] [place] [address] Nov, [facility] [address] [facility] [id number] [address] [place] [address] Nov, Abdominal pain 789.00 [facility] [address] [facility] [id number] [address] [place] [address] October, TDAP DX V06.1 [facility] [address] [place] [id number] [address] [place] [address] October, [facility] [address] [place] [id number] [address] [place] [address] October, Disturbance of skin sensatio n 782.0 ; Wrist pain, right 719.43 ; Hyperlipidemia 272.4 and Skin lesion of face 709.9 [facility] [address] [facility] [id number] [address] [place] [address] Sep, [facility] [address] [facility] [id number] [address] [place] [address] Sep, [facility] [address] [facility] [id number] [address] [place] [address] Aug, [facility] [address] [facility] [id number] [address] [place] [address] Aug, [facility] [address] [facility] [id number] [address] [place] [address] Aug, [facility] [address] [facility] [id number] [address] [place] [address] Aug, [facility] [address] [id number] [facility] [place] [address] 16 Aug, 2014 [facility] [address] [id number] [address] [place] [address], [place] [address] 16 Aug, 2014 [facility] [address] [id number] [address] [place] [address], [place] [address] 14 Aug, 2014 [facility] [address] [id number] [address] [place] [address], [place] [address] 14 Aug, 2014 [facility] [address] [id number] [address] [place] [address], [place] [address] 11 Aug, 2014 [facility] [address] [id number] [address] [place] [address], [place] [address] 11 Aug, 2014 [facility] [address] [id number] [address] [place] [address], [place] [address] 04 Aug, 2014 [facility] [address] [id number] [address] [place] [address], [place] [address] 04 Aug, 2014 [facility] [address] [id number] [address] [place] [address], [place] [address] 03 Aug, 2014 [facility] [address] [id number] [address] [place] [address], [place] [address] 03 Aug, 2014 [facility] [address] [id number] [address] [place] [address], [place] [address] 23 Jul, 2014 [facility] [address] [id number] [address] [place] [address], [place] [address] 23 Jul, 2014 [facility] [address] [id number] [address] [place] [address], [place] [address] 13 Jul, 2014 [facility] [address] [id number] [address] [place] [address], [place] [address] 13 Jul, 2014 [facility] [address] [id number] [address] [place] [address], [place] [address] 04 Jul, 2014 [facility] [address] [id number] [address] [place] [address] Jul, [facility] [address] [id number] [address] [place] [address], [place] [address] Jun, [facility] [address] [id number] [address] [place] [address], [place] [address] Jun, [facility] [address] [id number] [address] [place] [address], [place] [address] Jun, [facility] [address] [id number] [address] [place] [address], [place] [address] Jun, [facility] [address] [id number] [address] [place] [address], [place] [address] Jun, [facility] [address] [id number] [address] [place] [address], [place] [address] Jun, [facility] [address] [id number] [address] [place] [address], [place] [address] Jun, [facility] [address] [id number] [address] [place] [address], [place] [address] Jun, [facility] [address] [id number] [address] [place] [address], [place] [address] May, [facility] [address] [id number] [address] [place] [address], [place] [address] May, [facility] [address] [id number] [address] [place] [address], [place] [address] 18 May, 2014 [facility] [address] [id number] [address] [place] [address], [place] [address] 18 May, 2014 [facility] [address] [id number] [address] [place] [address], [place] [address] 15 May, 2014 [facility] [address] [id number] [address] [place] [address], [place] [address] 15 May, 2014 [facility] [address] [id number] [address] [place] [address], [place] [address] 11 May, 2014 [facility] [address] [id number] [address] [place] [address], [place] [address] May, [facility] [address] [id number] [address] [place] [address], [place] [address] May, [facility] [address] [id number] [address] [place] [address], [place] [address] May, [facility] [address] [id number] [address] [place] [address], [place] [address] May, [facility] [address] [id number] [address] [place] [address], [place] [address] May, [facility] [address] [id number] [address] [place] [address], [place] [address] Apr, [facility] [address] [id number] [address] [place] [address], [place] [address] Apr, [facility] [address] [id number] [address] [place] [address], [place] [address] Apr, [facility] [address] [id number] [address] [place] [address], [place] [address] Apr, [facility] [address] [id number] [address] [place] [address], [place] [address] Apr, [facility] [address] [id number] [address] [place] [address], [place] [address] Apr, [facility] [address] [id number] [address] [place] [address], [place] [address] Apr, [facility] [address] [id number] [address] [place] [address], [place] [address] Apr, [facility] [address] [id number] [address] [place] [address], [place] [address] Apr, [facility] [address] [id number] [address] [place] [address], [place] [address] Apr, [facility] [address] [id number] [address] [place] [address], [place] [address] Apr, [facility] [address] [id number] [address] [place] [address], [place] [address] Apr, [facility] [address] [id number] [address] [place] [address], [place] [address] Mar, [facility] [address] [id number] [address] [place] [address], [place] [address] Mar, [facility] [address] [id number] [address] [place] [address], [place] [address] Mar, [facility] [address] [id number] [address] [place] [address], [place] [address] Mar, [facility] [address] [id number] [address] [place] [address], [place] [address] Feb, [facility] [address] [id number] [address] [place] [address], [place] [address] Feb, [facility] [address] [id number] [address] [place] [address], [place] [address] 05 Feb, 2014 [facility] [address] [id number] [address] [place] [address], [place] [address] Feb, [facility] [address] [id number] [address] [place] [address], [place] [address] 05 Feb, 2014 [facility] [address] [id number] [address] [place] [address], [place] [address] Feb, [facility] [address] [id number] [address] [place] [address], [place] [address] Jan, [facility] [address] [id number] [address] [place] [address], [place] [address] Jan, [facility] [address] [id number] [address] [place] [address], [place] [address] Jan, [facility] [address] [id number] [address] [place] [address], [place] [address] Jan, [facility] [address] [id number] [address] [place] [address], [place] [address] Jan, [facility] [address] [id number] [address] [place] [address], [place] [address] Jan, [facility] [address] [id number] [address] [place] [address], [place] [address] Jan, [facility] [address] [id number] [address] [place] [address], [place] [address] Jan, [facility] [address] [id number] [address] [place] [address], [place] [address] Jan, [facility] [address] [id number] [address] [place] [address], [place] [address] Jan, [facility] [address] [id number] [address] [place] [address], [place] [address] Jan, [facility] [address] [id number] [address] [place] [address], [place] [address] Jan, [facility] [address] [id number] [address] [place] [address], [place] [address] Jan, [facility] [address] [id number] [address] [place] [address], [place] [address] Jan, [facility] [address] [id number] [address] [place] [address], [place] [address] Dec, [facility] [address] [id number] [address] [place] [address], [place] [address] Dec, [facility] [address] [id number] [address] [place] [address], [place] [address] Dec, [facility] [address] [id number] [address] [place] [address], [place] [address] Dec, [facility] [address] [id number] [address] [place] [address], [place] [address] Nov, [facility] [address] [id number] [address] [place] [address], [place] [address] Nov, [facility] [address] [id number] [address] [place] [address], [place] [address] Nov, [facility] [address] [id number] [address] [place] [address], [place] [address] Nov, [facility] [address] [id number] [address] [place] [address], [place] [address] Nov, [facility] [address] [id number] [address] [place] [address], [place] [address] October, [facility] [address] [id number] [address] [place] [address], [place] [address] October, [facility] [address] [id number] [address] [place] [address], [place] [address] October, [facility] [address] [id number] [address] [place] [address], [place] [address] October, [facility] [address] [id number] [address] [place] [address], [place] [address] October, [facility] [address] [id number] [address] [place] [address], [place] [address] October, [facility] [address] [id number] [address] [place] [address], [place] [address] October, [facility] [address] [id number] [address] [place] [address], [place] [address] October, [facility] [address] [id number] [address] [place] [address], [place] [address] October, [facility] [address] [id number] [address] [place] [address], [place] [address] October, [facility] [address] [id number] [address] [place] [address], [place] [address] October, [facility] [address] [id number] [address] [place] [address], [place] [address] October, [facility] [address] [id number] [address] [place] [address], [place] [address] October, [facility] [address] [id number] [address] [place] [address], [place] [address] October, [facility] [address] [id number] [address] [place] [address], [place] [address] Sep, [facility] [address] [id number] [address] [place] [address], [place] [address] Sep, [facility] [address] [id number] [address] [place] [address], [place] [address] Sep, [facility] [address] [id number] [address] [place] [address], [place] [address] Sep, [facility] [address] [id number] [address] [place] [address], [place] [address] Sep, [facility] [address] [id number] [address] [place] [address], [place] [address] Sep, [facility] [address] [id number] [address] [place] [address], [place] [address] Sep, [facility] [address] [id number] [address] [place] [address], [place] [address] Sep, [facility] [address] [id number] [address] [place] [address], [place] [address] Sep, [facility] [address] [id number] [address] [place] [address], [place] [address] Sep, [facility] [address] [id number] [address] [place] [address], [place] [address] Sep, [facility] [address] [id number] [address] [place] [address], [place] [address] Sep, [facility] [address] [id number] [address] [place] [address], [place] [address] Sep, [facility] [address] [id number] [address] [place] [address], [place] [address] Sep, [facility] [address] [id number] [address] [place] [address], [place] [address] Sep, [facility] [address] [id number] [address] [place] [address], [place] [address] Aug, [facility] [address] [id number] [address] [place] [address], [place] [address] Aug, [facility] [address] [id number] [address] [place] [address], [place] [address] Aug, [facility] [address] [id number] [address] [place] [address], [place] [address] Aug, [facility] [address] [id number] [address] [place] [address], [place] [address] Jul, [facility] [address] [id number] [address] [place] [address], [place] [address] Jul, [facility] [address] [id number] [address] [place] [address], [place] [address] Jul, [facility] [address] [id number] [address] [place] [address], [place] [address] Jul, [facility] [address] [id number] [address] [place] [address], [place] [address] Jun, [facility] [address] [id number] [address] [place] [address], [place] [address] Jun, [facility] [address] [id number] [address] [place] [address], [place] [address] Jun, [facility] [address] [id number] [address] [place] [address], [place] [address] Jun, [facility] [address] [id number] [address] [place] [address], [place] [address] Jun, [facility] [address] [id number] [address] [place] [address], [place] [address] Jun, [facility] [address] [id number] [address] [place] [address], [place] [address] Jun, [facility] [address] [id number] [address] [place] [address], [place] [address] 08 Jun, 2013 [facility] [address] [id number] [address] [place] [address], [place] [address] 20 May, 2013 [facility] [address] [id number] [address] [place] [address], [place] [address] 20 May, 2013 [facility] [address] [id number] [address] [place] [address], [place] [address] 18 May, 2013 [facility] [address] [id number] [address] [place] [address], [place] [address] 18 May, 2013 [facility] [address] [id number] [address] [place] [address], [place] [address] 17 May, 2013 [facility] [address] [id number] [address] [place] [address], [place] [id number] 17 May, 2013 [facility] [address] [id number] [address] [place] [address], [place] [address] 17 May, 2013 [facility] [address] [id number] [address] [place] [address], [place] [address] 17 May, 2013 [facility] [address] [id number] [address] [place] [address], [place] [address] 16 May, 2013 [facility] [address] [id number] [address] [place] [address], [place] [address] 16 May, 2013 [facility] [address] [id number] [address] [place] [address], [place] [address] 14 May, 2013 [facility] [address] [id number] [address] [place] [address], [place] [address] 14 May, 2013 [facility] [address] [id number] [address] [place] [address], [place] [address] 13 May, 2013 [facility] [address] [id number] [address] [place] [address], [place] [address] 13 May, 2013 [facility] [address] [id number] [address] [place] [address], [place] [address] May, [facility] [address] [id number] [address] [place] [address], [place] [address] May, [facility] [address] [id number] [address] [place] [address], [place] [address] May, [facility] [address] [id number] [address] [place] [address], [place] [address] May, [facility] [address] [id number] [address] [place] [address], [place] [address] Apr, [facility] [address] [id number] [address] [place] [address], [place] [address] Apr, [facility] [address] [id number] [address] [place] [address], [place] [address] Apr, [facility] [address] [id number] [address] [place] [address], [place] [address] Apr, [facility] [address] [id number] [address] [place] [address], [place] [address] Aug, [facility] [address] [id number] [address] [place] [address], [place] [address] Aug, [facility] [address] [id number] [address] [place] [address], [place] [address] Aug, [facility] [address] [id number] [address] [place] [address], [place] [address] 05 Aug, 2012 [facility] [address] [id number] [address] [place] [address], [place] [address] Jul, [facility] [address] [id number] [address] [place] [address], [place] [address] Jun, [facility] [address] [id number] [address] [place] [address], [place] [address] Jun, [facility] [address] [id number] [address] [place] [address], [place] [address] Jun, [facility] [address] [id number] [address] [place] [address], [place] [address] Jun, [facility] [address] [id number] [address] [place] [address], [place] [address] May, [facility] [address] [id number] [address] [place] [address], [place] [address] May, [facility] [address] [id number] [address] [place] [address], [place] [address] May, [facility] [address] [id number] [address] [place] [address], [place] [address] May, [facility] [address] [id number] [address] [place] [address], [place] [address] May, [facility] [address] [id number] [address] [place] [address], [place] [address] May, [facility] [address] [id number] [address] [place] [address], [place] [address] May, [facility] [address] [id number] [address] [place] [address], [place] [address] Apr, [facility] [address] [id number] [address] [place] [address], [place] [address] Apr, [facility] [address] [id number] [address] [place] [address], [place] [address] Apr, [facility] [address] [id number] [address] [place] [address], [place] [address] Apr, [facility] [address] [id number] [address] [place] [address], [place] [address] Apr, [facility] [address] [id number] [address] [place] [address], [place] [address] Apr, [facility] [address] [id number] [address] [place] [address], [place] [address] Apr, [facility] [address] [id number] [address] [place] [address], [place] [address] Mar, [facility] [address] [id number] [address] [place] [address], [place] [address] Mar, [facility] [address] [id number] [address] [place] [address], [place] [address] Mar, [facility] [address] [id number] [address] [place] [address], [place] [address] Mar, [facility] [address] [id number] [address] [place] [address], [place] [address] Mar, [facility] [address] [id number] [address] [place] [address], [place] [address] Mar, [facility] [address] [id number] [address] [place] [address], [place] [address] Mar, [facility] [address] [id number] [address] [place] [address], [place] [address] Mar, [facility] [address] [id number] [address] [place] [address], [place] [address] Mar, [facility] [address] [id number] [address] [place] [address], [place] [address] Mar, [facility] [address] [id number] [address] [place] [address] Mar, [facility] [address] [id number] [address] [place] [address] Mar, [facility] [address] [id number] [address] [place] [address] 06 Feb, 2012 [facility] [address] [id number] [address] [place] [address], [place] [address] Jan, [facility] [address] [id number] [address] [place] [address] 14 Jan, 2012 [facility] [address] [id number] [address] [place] [address], [place] [address] Jan, [facility] [address] [id number] [address] [place] [address], [place] [address] Jan, [facility] [address] [id number] [address] [place] [address], [place] [address] Jan, [facility] [address] [id number] [address] [place] [address], [place] [address] Dec, [facility] [address] [id number] [address] [place] [address], [place] [address] Dec, [facility] [address] [id number] [address] [place] [address], [place] [address] Nov, [facility] [address] [id number] [address] [place] [address], [place] [address] Nov, [facility] [address] [id number] [address] [place] [address], [place] [address] Nov, [facility] [address] [id number] [address] [place] [address], [place] [address] October, [facility] [address] [id number] [address] [place] [address], [place] [address] October, [facility] [address] [id number] [address] [place] [address], [place] [address] October, [facility] [address] [id number] [address] [place] [address], [place] [address] October, [facility] [address] [id number] [address] [place] [address], [place] [address] October, [facility] [address] [id number] [address] [place] [address], [place] [address] October, [facility] [address] [id number] [address] [place] [address], [place] [address] October, [facility] [address] [id number] [address] [place] [address], [place] [address] Sep, [facility] [address] [id number] [address] [place] [address], [place] [address] Sep, [facility] [address] [id number] [address] [place] [address], [place] [address] 26 Sep, 2011 [facility] [address] [id number] [address] [place] [address], [place] [address] 25 Sep, 2011 [facility] [address] [id number] [address] [place] [address], [place] [address] 24 Sep, 2011 [facility] [address] [id number] [address] [place] [address], [place] [address] 19 Sep, 2011 [facility] [address] [id number] [address] [place] [address], [place] [address] 17 Sep, 2011 [facility] [address] [id number] [address] [place] [address], [place] [address] 16 Sep, 2011 [facility] [address] [id number] [address] [place] [address], [place] [address] 16 Sep, 2011 [facility] [address] [id number] [address] [place] [address], [place] [address] 14 Sep, 2011 [facility] [address] [id number] [address] [place] [address], [place] [address] 13 Sep, 2011 [facility] [address] [id number] [address] [place] [address], [place] [address] 10 Sep, 2011 [facility] [address] [id number] [address] [place] [address], [place] [address] 09 Sep, 2011 [facility] [address] [id number] [address] [place] [address], [place] [address] 27 Aug, 2011 [facility] [address] [id number] [address] [place] [address], [place] [address] 12 Aug, 2011 [facility] [address] [id number] [address] [place] [address], [place] [address] 08 Aug, 2011 [facility] [address] [id number] [address] [place] [address], [place] [address] 06 Aug, 2011 [facility] [address] [id number] [address] [place] [address], [place] [address] 28 Jul, 2011 [facility] [address] [id number] [address] [place] [address], [place] [address] 22 Jul, 2011 [facility] [address] [id number] [address] [place] [address], [place] [address] 16 Jul, 2011 [facility] [address] [id number] [address] [place] [address], [place] [address] 15 Jul, 2011 [facility] [address] [id number] [address] [place] [address], [place] [address] 14 Jul, 2011 [facility] [address] [id number] [address] [place] [address], [place] [address] 10 Jul, 2011 [facility] [address] [id number] [address] [place] [address], [place] [address] 30 Jun, 2011 [facility] [address] [id number] [address] [place] [address], [place] [address] 05 Jun, 2011 [facility] [address] [id number] [address] [place] [address], [place] [address] Jun, [facility] [address] [id number] [address] [place] [address], [place] [address] Jun, [facility] [address] [id number] [address] [place] [address], [place] [address] Jun, [facility] [address] [id number] [address] [place] [address], [place] [address] May, [facility] [address] [id number] [address] [place] [address], [place] [address] May, [facility] [address] [id number] [address] [place] [address], [place] [address] May, [facility] [address] [id number] [address] [place] [address], [place] [address] May, [facility] [address] [id number] [address] [place] [address], [place] [address] May, [facility] [address] [id number] [address] [place] [address], [place] [address] May, [facility] [address] [id number] [address] [place] [address], [place] [address] May, [facility] [address] [id number] [address] [place] [address], [place] [address] Apr, [facility] [address] [id number] [address] [place] [address], [place] [address] Apr, [facility] [address] [id number] [address] [place] [address], [place] [address] Apr, [facility] [address] [id number] [address] [place] [address], [place] [address] Apr, [facility] [address] [id number] [address] [place] [address], [place] [address] Apr, [facility] [address] [id number] [address] [place] [address], [place] [address] Apr, [facility] [address] [id number] [address] [place] [address], [place] [address] Mar, [facility] [address] [id number] [address] [place] [address], [place] [address] Mar, [facility] [address] [id number] [address] [place] [address], [place] [address] Mar, [facility] [address] [id number] [address] [place] [address], [place] [address] Mar, [facility] [address] [id number] [address] [place] [address], [place] [address] Jan, [facility] [address] [id number] [address] [place] [address], [place] [address] Dec, [facility] [address] [id number] [address] [place] [address], [place] [address] Dec, [facility] [address] [id number] [address] [place] [address], [place] [address] October, [facility] [address] [id number] [address] [place] [address], [place] [address] Sep, [facility] [address] [id number] [address] [place] [address], [place] [address] 14 Sep, 2010 [facility] [address] [id number] [address] [place] [address], [place] [address] 17 Jul, 2010 [facility] [address] [id number] [address] [place] [address], [place] [address] 16 Jul, 2010 [facility] [address] [id number] [address] [place] [address], [place] [address] 31 May, 2010 [facility] [address] [id number] [address] [place] [address], [place] [address] 27 May, 2010 [facility] [address] [id number] [address] [place] [address], [place] [address] May, [facility] [address] [id number] [address] [place] [address], [place] [address] May, [facility] [address] [id number] [address] [place] [address], [place] [address] Apr, [facility] [address] [id number] [address] [place] [address], [place] [address] Apr, [facility] [address] [id number] [address] [place] [address], [place] [address] Apr, [facility] [address] [id number] [address] [place] [address], [place] [address] Apr, [facility] [address] [id number] [address] [place] [address], [place] [address] Apr, [facility] [address] [id number] [address] [place] [address], [place] [address] Mar, [facility] [address] [id number] [address] [place] [address], [place] [address] 14 Mar, 2010 [facility] [address] [id number] [address] [place] [address], [place] [address] 13 Mar, 2010 [facility] [address] [id number] [address] [place] [address], [place] [address] 12 Mar, 2010 [facility] [address] [id number] [address] [place] [address], [place] [address] Jan, [facility] [address] [id number] [address] [place] [address], [place] [address] 15 Dec, 2009 [facility] [address] [id number] [address] [place] [address], [place] [address] Sep, [facility] [address] [id number] [address] [place] [address], [place] [address] 08 May, 2009 [facility] [address] [id number] [address] [place] [address], [place] [address] May, [facility] [address] [id number] [address] [place] [address], [place] [address] May, [facility] [address] [id number] [address] [place] [address], [place] [address] 17 Apr, 2009 [facility] [address] [id number] [address] [place] [address], [place] [address] 17 Apr, 2009 [facility] [address] [id number] [address] [place] [address], [place] [address] Apr, [facility] [address] [id number] [address] [place] [address], [place] [address] Apr, [facility] [address] [id number] [address] [place] [address], [place] [address] Apr, [facility] [address] [id number] [address] [place] [address], [place] [address] 15 Mar, 2009 [facility] [address] [id number] [address] [place] [address], [place] [address] 15 Mar, 2009 [facility] [address] [id number] [address] [place] [address], [place] [address] Jul, IMMUNIZATIONS No Known Immunizations SOCIAL HISTORY [...] and replaced VC 10/2018 Hospitalization History Cellulitis-[facility] Hospitalization History [facility] [place]- Abd pain 03/07/2017 Hospitalization History [facility] [place]- Abd pain 03/14/2017 Hospitalization History [facility] [place]- No bowel movement, rash 04/13/2017 Hospitalization History [facility] [place]- Abd pain r/ t kidney surgery on 04/10/17 04/17/2017 Hospitalization History [facility] [place]- Abd pain r/ t kidney surgery on 04/10/17 04/18/2017 Hospitalization History [facility] [place]- Lower abd pain 04/17 Hospitalization History [facility] [place]- Cannot urinate 05/17 Hospitalization History [facility] [place]- Pancreatitis Sx Hospital[facility] Stom[facility] 2017 Hospitalization History [facility]- Left side pain 07/19 Hospitalization History [facility]- Incision site infec tion 08/30/2017 Hospitalization History [facility]- Post Op Serom a/Hematoma Left Abdomen. Discharged 09/04/17- Dr Daniel 09/02/2017 Hospitalization History [facility]- Right shoulder and back pain 10/22/2017 Hospitalization History [facility]- Shoulder/Back pain 11/11/2017 Hospitalization History [facility]- Right shoulder blad e pain 12/04/2017 Hospitalization History [facility]- C-Diff 12/13/2017 Hospitalization History C diff et MRSA 12/27/2017 Hospitalization History [facility] Bowel Obstruction 10/2018 Hospitalization [facility]- Abdominal pain and nausea 01/08/2019
--- OUTSIDE RECORDS SUMMARY | 2020-01-21 18:07 | XMS REPORT ---
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 use of diseases classified elsewhere B97.89 and Acute upper respiratory infection, unspecified J06.9 [facility] [place] [address] [facility] [id number] [address] [place] [address] Mar, Nausea R11.0 [facility] [place] [address] [facility] [id number] [address] [place] [address] Dec, Hives L50.9 [place] [address] [facility] [id number] [address] [place] [phone] Dec, [facility] [place] [address] [place] [id number] [address] [place] [address] Dec, Cutaneous abscess of limb, u nspecified L02.419 ; Cellulitis of unspecified part of limb L03.119 ; Encounter for incision and drainage procedure Z01.89 and Encounter for recheck of abscess following i ncision and drainage Z09 [facility] [place] [address] [facility] [id number] [address] [place] [id number] Dec, Abscess of leg, right L02.41 [address] [place] [address] [place] [id number] [address] [place] [address] Dec, Cellulitis of unspecified pa rt of limb L03.119 and Cutaneous abscess of limb, unspecified L02.419 [place] [address] [facility] [id number] [address] [place] [address] Dec, [place] [address] [facility] [id number] [address] [place] [address] Dec, [facility] [place] [address] [facility] [id number] [address] [place] [id number] Aug, [place] [address] [place] [id number] [address] [place] [address] Aug, [facility] [address] [address] [id number] [address] [place] [address] Jul, Pain in unspecified wrist M2 5.539 and Back pain, thoracic M54.6 [facility] [address] [facility] [id number] [address] [place] [address] 13 Jun, 2015 Strain of right wrist, initi al encounter S66.911A [facility] [address] [place] [id number] [address] [place] [phone] Jun, Chronic pancreatitis, unspec ified pancreatitis type K86.1 ; Hirsuties L68.0 ; Morbid (severe) obesity due to excess calories E66.01 ; Chronic pancreatitis K86.1 and Asthma J45.909 [place] [address] [place] [id number] [address] [place] [address] May, [place] [address] [place] [id number] [address] [place] [address] May, Hyperlipidemia, mixed E78.2 and Muscle spasm of back M62.830 [place] [address] [place] [id number] [address] [place] [address] Apr, [place] [address] [place] [id number] [address] [place] [address] Apr, Torticollis M43.6 [place] [address] [place] [id number] [address] [place] [address] Apr, Right-sided thoracic back pa in M54.6 [facility] [address] [facility] [id number] [address] [place] [address] Mar, Rash R21 [place] [address] [facility] [id number] [address] [place] [address] Mar, [place] [address] [place] [id number] [address] [place] [address] Jan, [facility] [address] [place] [id number] [address] [place] [id number] Dec, [facility] [address] [facility] [id number] [address] [place] [address] Dec, Urinary frequency 788.41 and Nocturia more than twice per night 788.43 [facility] [address] [facility] [id number] [address] [place] [id number] Nov, [facility] [address] [facility] [id number] [address] [place] [address] Nov, [facility] [address] [facility] [id number] [address] [place] [address] Nov, Abdominal pain 789.00 [facility] [address] [place] [id number] [address] [place] [address] October, TDAP DX V06.1 [facility] [address] [place] [id number] [address] [place] [address] October, [facility] [address] [place] [id number] [address] [place] [address] October, Disturbance of skin sensatio n 782.0 ; Wrist pain, right 719.43 ; Hyperlipidemia 272.4 and Skin lesion of face 709.9 [facility] [address] [facility] [id number] [address] [place] [id number] Sep, [facility] [address] [place] [id number] [address] [place] [address] Sep, [facility] [address] [facility] [id number] [address] [place] [phone] Aug, [facility] [address] [facility] [id number] [address] [place] [address] Aug, [facility] [address] [place] [id number] [address] [place] [phone] Aug, [facility] [address] [facility] [id number] [address] [place] [phone] Aug, [facility] [address] [id number] [address] [place] [address], [place] [address] 16 Aug, 2014 [facility] [address] [id number] [address] [place] [address], [place] [address] 16 Aug, 2014 [facility] [address] [id number] [address] [place] [address], [place] [address] 14 Aug, 2014 [facility] [address] [id number] [address] [place] [address], [place] [id number] 14 Aug, 2014 [facility] [address] [id number] [address] [place] [address], [place] [id number] 11 Aug, 2014 [facility] [address] [id number] [address] [place] [address], [place] [address] 11 Aug, 2014 [facility] [address] [id number] [address] [place] [address], [place] [address] 04 Aug, 2014 [facility] [address] [id number] [address] [place] [address], [place] [address] 04 Aug, 2014 [facility] [address] [id number] [address] [place] [address], [place] [address] 03 Aug, 2014 [facility] [address] [id number] [address] [place] [address], [place] [address] 03 Aug, 2014 [facility] [address] [id number] [address] [place] [address], [place] [address] 23 Jul, 2014 [facility] [address] [id number] [address] [place] [address], [place] [id number] 23 Jul, 2014 [facility] [address] [id number] [address] [place] [address], [place] [address] 13 Jul, 2014 [facility] [address] [id number] [address] [place] [address], [place] [address] 13 Jul, 2014 [facility] [address] [id number] [address] [place] [address], [place] [address] 04 Jul, 2014 [facility] [address] [id number] [address] [place] [id number] 04 Jul, 2014 [facility] [address] [id number] [address] [place] [address], [place] [id number] Jun, [facility] [address] [id number] [address] [place] [id number] Jun, [facility] [address] [id number] [address] [place] [address], [place] [address] Jun, [facility] [address] [id number] [address] [place] [address], [place] [address] Jun, [facility] [address] [id number] [address] [place] [address], [place] [address] Jun, [facility] [address] [id number] [address] [place] [address], [place] [address] Jun, [facility] [address] [id number] [address] [place] [id number] Jun, [facility] [address] [id number] [address] [place] [address], [place] [address] Jun, [facility] [address] [id number] [address] [place] [address], [place] [address] May, [facility] [address] [id number] [address] [place] [address], [place] [address] May, [facility] [address] [id number] [address] [place] [address], [place] [id number] 18 May, 2014 [facility] [address] [id number] [address] [place] [address], [place] [address] 18 May, 2014 [facility] [address] [id number] [address] [place] [address], [place] [address] 15 May, 2014 [facility] [address] [id number] [address] [place] [address], [place] [address] 15 May, 2014 [facility] [address] [id number] [address] [place] [address], [place] [address] 11 May, 2014 [facility] [address] [id number] [address] [place] [address], [place] [address] May, [facility] [address] [id number] [address] [place] [address], [place] [address] May, [facility] [address] [id number] [address] [place] [address], [place] [address] May, [facility] [address] [id number] [address] [place] [address], [place] [address] May, [facility] [address] [id number] [address] [place] [address], [place] [address] May, [facility] [address] [id number] [address] [place] [address], [place] [address] Apr, [facility] [address] [id number] [address] [place] [address], [place] [address] Apr, [facility] [address] [id number] [address] [place] [address], [place] [address] Apr, [facility] [address] [id number] 69 [place] [address], [place] [address] Apr, [facility] [address] [id number] [address] [place] [address], [place] [address] Apr, [facility] [address] [id number] [address] [place] [address], [place] [address] Apr, [facility] [address] [id number] [address] [place] [address], [place] [address] Apr, [facility] [address] [id number] [address] [place] [address], [place] [address] Apr, [facility] [address] [id number] [address] [place] [address], [place] [address] Apr, [facility] [address] [id number] [address] [place] [address], [place] [address] Apr, [facility] [address] [id number] [address] [place] [address] [address] Apr, [facility] [address] [id number] [address] [place] [address], [place] [address] Apr, [facility] [address] [id number] [address] [place] [address], [place] [address] Mar, [facility] [address] [id number] [address] [place] [address], [place] [address] Mar, [facility] [address] [id number] [address] [place] [address], [place] [address] Mar, [facility] [address] [id number] [address] [place] [address], [place] [address] Mar, [facility] [address] [id number] [address] [place] [address], [place] [address] Feb, [facility] [address] [id number] [address] [place] [address], [place] [address] Feb, [facility] [address] [id number] [address] [place] [address], [place] [address] 05 Feb, 2013 [facility] [address] [id number] [address] [place] [address], [place] [address] 05 Feb, 2014 [facility] [address] [id number] [address] [place] [address], [place] [address] 05 Feb, 2014 [facility] [address] [id number] [address] [place] [address], [place] [address] Feb, 2013 [facility] [address] [id number] [address] [place] [address], [place] [address] Jan, [facility] [address] [id number] [address] [place] [address], [place] [address] Jan, [facility] [address] [id number] [address] [place] [address], [place] [address] Jan, [facility] [address] [id number] [address] [place] [address], [place] [address] Jan, [facility] [address] [id number] [facility] [place] [address] Jan, [facility] [address] [id number] [address] [place] [address], [place] [address] Jan, [facility] [address] [id number] [address] [place] [address], [place] [address] Jan, [facility] [address] [id number] [address] [place] [address], [place] [address] Jan, [facility] [address] [id number] [address] [place] [address], [place] [address] Jan, [facility] [address] [id number] [address] [place] [address], [place] [address] Jan, [facility] [address] [id number] [address] [place] [address], [place] [address] Jan, [facility] [address] [id number] [address] [place] [address], [place] [address] Jan, [facility] [address] [id number] [address] [place] [address], [place] [address] Jan, [facility] [address] [id number] [address] [place] [address], [place] [address] Jan, [facility] [address] [id number] [address] [place] [address], [place] [address] Dec, [facility] [address] [id number] [address] [place] [address], [place] [address] Dec, [facility] [address] [id number] [address] [place] [address], [place] [address] Dec, [facility] [address] [id number] [address] [place] [address], [place] [address] Dec, [facility] [address] [id number] [address] [place] [address], [place] [address] Nov, [facility] [address] [id number] [address] [place] [address], [place] [address] Nov, [facility] [address] [id number] [address] [place] [address], [place] [address] Nov, [facility] [address] [id number] [address] [place] [address], [place] [address] Nov, [facility] [address] [id number] [address] [place] [address], [place] [address] Nov, [facility] [address] [id number] [address] [place] [address], [place] [address] October, [facility] [address] [id number] [address] [place] [address], [place] [address] October, [facility] [address] [id number] [address] [place] [address], [place] [address] October, [facility] [address] [id number] [address] [place] [address], [place] [address] October, [facility] [address] [id number] [address] [place] [address], [place] [address] October, [facility] [address] [id number] [address] [place] [address], [place] [address] October, [facility] [address] [id number] [address] [place] [address], [place] [address] October, [facility] [address] [id number] [address] [place] [address], [place] [address] October, [facility] [address] [id number] [address] [place] [address], [place] [address] October, [facility] [address] [id number] [address] [place] [address], [place] [address] October, [facility] [address] [id number] [address] [place] [address], [place] [address] October, [facility] [address] [id number] [address] [place] [address], [place] [address] October, [facility] [address] [id number] [address] [place] [address], [place] [address] October, [facility] [address] [id number] [facility] [address] October, [facility] [address] [id number] [address] [place] [address], [place] [address] Sep, [facility] [address] [id number] [address] [place] [address], [place] [address] Sep, [facility] [address] [id number] [address] [place] [address], [place] [address] Sep, [facility] [address] [id number] [address] [place] [address], [place] [address] Sep, [facility] [address] [id number] [address] [place] [address], [place] [address] Sep, [facility] [address] [id number] [address] [place] [address], [place] [address] Sep, [facility] [address] [id number] [address] [place] [address], [place] [address] Sep, [facility] [address] [id number] [address] [place] [address], [place] [address] Sep, [facility] [address] [id number] [address] [place] [address], [place] [address] Sep, [facility] [address] [id number] [address] [place] [address], [place] [address] Sep, [facility] [address] [id number] [address] [place] [address], [place] [address] Sep, [facility] [address] [id number] [address] [place] [address], [place] [address] Sep, [facility] [address] [id number] [address] [place] [address], [place] [address] Sep, [facility] [address] [id number] [address] [place] [address], [place] [address] Sep, [facility] [address] [id number] [address] [place] [address], [place] [address] Sep, [facility] [address] [id number] [address] [place] [address], [place] [address] Aug, [facility] [address] [id number] [address] [place] [address], [place] [address] Aug, [facility] [address] [id number] [address] [place] [address], [place] [address] Aug, [facility] [address] [id number] [address] [place] [address], [place] [address] Aug, [facility] [address] [id number] [address] [place] [address], [place] [address] Jul, [facility] [address] [id number] [address] [place] [address], [place] [address] Jul, [facility] [address] [id number] [address] [place] [address], [place] [address] Jul, [facility] [address] [id number] [address] [place] [address], [place] [address] Jul, [facility] [address] [id number] [address] [place] [address], [place] [address] Jun, [facility] [address] [id number] [address] [place] [address], [place] [address] Jun, [facility] [address] [id number] [address] [place] [address], [place] [address] Jun, [facility] [address] [id number] [address] [place] [address], [place] [address] Jun, [facility] [address] [id number] [address] [place] [address], [place] [address] Jun, [facility] [address] [id number] [address] [place] [address], [place] [address] Jun, [facility] [address] [id number] [address] [place] [address], [place] [address] 08 Jun, 2013 [facility] [address] [id number] [address] [place] [address], [place] [address] 08 Jun, 2013 [facility] [address] [id number] [address] [place] [address], [place] [address] 20 May, 2013 [facility] [address] [id number] [address] [place] [address], [place] [address] 20 May, 2013 [facility] [address] [id number] [address] [place] [address], [place] [address] 18 May, 2013 [facility] [address] [id number] [address] [place] [address], [place] [address] 18 May, 2013 [facility] [address] [id number] [address] [place] [address], [place] [address] 17 May, 2013 [facility] [address] [id number] [address] [place] [address], [place] [id number] 17 May, 2013 [facility] [address] [id number] [address] [place] [address], [place] [address] 17 May, 2013 [facility] [address] [id number] [address] [place] [address], [place] [address] 17 May, 2013 [facility] [address] [id number] [address] [place] [address], [place] [address] 16 May, 2013 [facility] [address] [id number] [address] [place] [address], [place] [address] 16 May, 2013 [facility] [address] [id number] [address] [place] [address], [place] [address] 14 May, 2013 [facility] [address] [id number] [address] [place] [address], [place] [address] 14 May, 2013 [facility] [address] [id number] [address] [place] [address], [place] [address] 13 May, 2013 [facility] [address] [id number] [address] [place] [address], [place] [address] 13 May, 2013 [facility] [address] [id number] [address] [place] [address], [place] [address] May, [facility] [address] [id number] [address] [place] [address], [place] [address] May, [facility] [address] [id number] [address] [place] [address], [place] [address] May, [facility] [address] [id number] [address] [place] [address], [place] [address] May, [facility] [address] [id number] [address] [place] [address], [place] [address] Apr, [facility] [address] [id number] [address] [place] [address], [place] [address] Apr, [facility] [address] [id number] [address] [place] [address], [place] [address] Apr, [facility] [address] [id number] [address] [place] [address], [place] [address] Apr, [facility] [address] [id number] [address] [place] [address], [place] [address] Aug, [facility] [address] [id number] [address] [place] [address], [place] [address] Aug, [facility] [address] [id number] [address] [place] [address], [place] [address] Aug, [facility] [address] [id number] [address] [place] [address], [place] [address] 05 Aug, 2012 [facility] [address] [id number] [address] [place] [address], [place] [address] Jul, [facility] [address] [id number] [address] [place] [address], [place] [address] Jun, [facility] [address] [id number] [address] [place] [address], [place] [address] Jun, [facility] [address] [id number] [address] [place] [address], [place] [address] Jun, [facility] [address] [id number] [address] [place] [address], [place] [address] Jun, [facility] [address] [id number] [address] [place] [address], [place] [address] May, [facility] [address] [id number] [address] [place] [address], [place] [address] May, [facility] [address] [id number] [address] [place] [address], [place] [address] May, [facility] [address] [id number] [address] [place] [address], [place] [address] May, [facility] [address] [id number] [address] [place] [address], [place] [address] May, [facility] [address] [id number] [address] [place] [address], [place] [address] May, [facility] [address] [id number] [address] [place] [address], [place] [address] May, [facility] [address] [id number] [address] [place] [address], [place] [address] Apr, [facility] [address] [id number] [address] [place] [address], [place] [address] Apr, [facility] [address] [id number] [address] [place] [address], [place] [address] Apr, [facility] [address] [id number] [address] [place] [address], [place] [address] Apr, [facility] [address] [id number] [address] [place] [address], [place] [address] Apr, [facility] [address] [id number] [address] [place] [address], [place] [address] Apr, [facility] [address] [id number] [address] [place] [address], [place] [address] Apr, [facility] [address] [id number] [address] [place] [address], [place] [address] Mar, [facility] [address] [id number] [address] [place] [address], [place] [address] Mar, [facility] [address] [id number] [address] [place] [address], [place] [address] Mar, [facility] [address] [id number] [address] [place] [address], [place] [address] Mar, [facility] [address] [id number] [address] [place] [address] Mar, [facility] [address] [id number] [address] [place] [address], [place] [address] Mar, [facility] [address] [id number] [address] [place] [address], [place] [address] Mar, [facility] [address] [id number] [address] [place] [address], [place] [address] Mar, [facility] [address] [id number] [address] [place] [address], [place] [address] Mar, [facility] [address] [id number] [address] [place] [address], [place] [address] Mar, [facility] [address] [id number] [address] [place] [address] Mar, [facility] [address] [id number] [address] [place] [address] Mar, [facility] [address] [id number] [address] [place] [address] Feb, [facility] [address] [id number] [address] [place] [address], [place] [address] Jan, [facility] [address] [id number] [address] [place] [address] 14 Jan, 2012 [facility] [address] [id number] [address] [place] [address], [place] [address] Jan, [facility] [address] [id number] [address] [place] [address], [place] [address] Jan, [facility] [address] [id number] [address] [place] [address], [place] [address] Jan, [facility] [address] [id number] [address] [place] [address], [place] [address] Dec, [facility] [address] [id number] [address] [place] [address], [place] [address] Dec, [facility] [address] [id number] [address] [place] [address], [place] [address] Nov, [facility] [address] [id number] [address] [place] [address], [place] [address] Nov, [facility] [address] [id number] [address] [place] [address], [place] [address] Nov, [facility] [address] [id number] [address] [place] [address], [place] [address] October, [facility] [address] [id number] [address] [place] [address], [place] [address] October, [facility] [address] [id number] [address] [place] [address], [place] [address] October, [facility] [address] [id number] [address] [place] [address], [place] [address] October, [facility] [address] [id number] [address] [place] [address], [place] [address] October, [facility] [address] [id number] [address] [place] [address], [place] [address] October, [facility] [address] [id number] [address] [place] [address], [place] [address] October, [facility] [address] [id number] [address] [place] [address], [place] [address] Sep, [facility] [address] [id number] [address] [place] [address], [place] [address] Sep, [facility] [address] [id number] [address] [place] [address], [place] [address] 26 Sep, 2011 [facility] [address] [id number] [address] [place] [address], [place] [address] 25 Sep, 2011 [facility] [address] [id number] [address] [place] [address], [place] [address] 24 Sep, 2011 [facility] [address] [id number] [address] [place] [address], [place] [address] 19 Sep, 2011 [facility] [address] [id number] [address] [place] [address], [place] [address] 17 Sep, 2011 [facility] [address] [id number] [address] [place] [address], [place] [address] 16 Sep, 2011 [facility] [address] [id number] [address] [place] [address], [place] [address] 16 Sep, 2011 [facility] [address] [id number] [address] [place] [address], [place] [address] 14 Sep, 2011 [facility] [address] [id number] [address] [place] [address], [place] [address] 13 Sep, 2011 [facility] [address] [id number] [address] [place] [address], [place] [address] 10 Sep, 2011 [facility] [address] [id number] [address] [place] [address], [place] [address] 09 Sep, 2011 [facility] [address] [id number] [address] [place] [address], [place] [address] 27 Aug, 2011 [facility] [address] [id number] [address] [place] [address], [place] [address] 12 Aug, 2011 [facility] [address] [id number] [address] [place] [address], [place] [address] 08 Aug, 2011 [facility] [address] [id number] [address] [place] [address], [place] [address] 06 Aug, 2011 [facility] [address] [id number] [address] [place] [address], [place] [address] 28 Jul, 2011 [facility] [address] [id number] [address] [place] [address], [place] [address] 22 Jul, 2011 [facility] [address] [id number] [address] [place] [address], [place] [address] 16 Jul, 2011 [facility] [address] [id number] [address] [place] [address], [place] [address] 15 Jul, 2011 [facility] [address] [id number] [address] [place] [address], [place] [address] 14 Jul, 2011 [facility] [address] [id number] [address] [place] [address], [place] [address] 10 Jul, 2011 [facility] [address] [id number] [address] [place] [address], [place] [address] 30 Jun, 2011 [facility] [address] [id number] [address] [place] [address], [place] [address] 05 Jun, 2011 [facility] [address] [id number] [address] [place] [address], [place] [address] 04 Jun, 2011 [facility] [address] [id number] [address] [place] [address], [place] [address] Jun, [facility] [address] [id number] [address] [place] [address], [place] [address] Jun, [facility] [address] [id number] [address] [place] [address], [place] [address] May, [facility] [address] [id number] [address] [place] [address], [place] [address] May, [facility] [address] [id number] [address] [place] [address], [place] [address] May, [facility] [address] [id number] [address] [place] [address], [place] [id number] 14 May, 2011 [facility] [address] [id number] [address] [place] [address], [place] [address] May, [facility] [address] [id number] [address] [place] [address], [place] [address] May, [facility] [address] [id number] [address] [place] [address], [place] [address] May, [facility] [address] [id number] [address] [place] [address], [place] [address] Apr, [facility] [address] [id number] [address] [place] [address], [place] [address] Apr, [facility] [address] [id number] [address] [place] [address], [place] [address] Apr, [facility] [address] [id number] [address] [place] [address], [place] [address] Apr, [facility] [address] [id number] [address] [place] [address], [place] [address] Apr, [facility] [address] [id number] [address] [place] [address], [place] [address] Apr, [facility] [address] [id number] [address] [place] [address], [place] [address] Mar, [facility] [address] [id number] [address] [place] [address], [place] [address] Mar, [facility] [address] [id number] [address] [place] [id number] Mar, [facility] [address] [id number] [address] [place] [id number] Mar, [facility] [address] [id number] [address] [place] [address], [place] [address] Jan, [facility] [address] [id number] [address] [place] [address], [place] [address] Dec, [facility] [address] [id number] [address] [place] [id number] Dec, [facility] [address] [id number] [address] [place] [id number] October, [facility] [address] [id number] [address] [place] [address], [place] [address] Sep, [facility] [address] [id number] [address] [place] [address], [place] [address] 14 Sep, 2010 [facility] [address] [id number] [address] [place] [address], [place] [address] 17 Jul, 2010 [facility] [address] [id number] [address] [place] [address], [place] [address] 16 Jul, 2010 [facility] [address] [id number] [address] [place] [address], [place] [address] 31 May, 2010 [facility] [address] [id number] [address] [place] [address], [place] [address] May, [facility] [address] [id number] [address] [place] [address], [place] [address] May, [facility] [address] [id number] [address] [place] [address], [place] [address] May, [facility] [address] [id number] [address] [place] [address], [place] [address] Apr, [facility] [address] [id number] [address] [place] [address], [place] [address] Apr, [facility] [address] [id number] [address] [place] [address], [place] [address] Apr, [facility] [address] [id number] [address] [place] [address], [place] [address] Apr, [facility] [address] [id number] [address] [place] [address], [place] [address] Apr, [facility] [address] [id number] [address] [place] [address], [place] [address] Mar, [facility] [address] [id number] [address] [place] [address], [place] [address] 14 Mar, 2010 [facility] [address] [id number] [address] [place] [address], [place] [address] 13 Mar, 2010 [facility] [address] [id number] [address] [place] [address], [place] [address] 12 Mar, 2010 [facility] [address] [id number] [address] [place] [address], [place] [address] Jan, [facility] [address] [id number] [address] [place] [address], [place] [address] 15 Dec, 2009 [facility] [address] [id number] [address] [place] [address], [place] [address] Sep, [facility] [address] [id number] [address] [place] [address], [place] [address] 08 May, 2009 [facility] [address] [id number] [address] [place] [address], [place] [address] May, [facility] [address] [id number] [address] [place] [address], [place] [address] May, [facility] [address] [id number] [address] [place] [address], [place] [address] 17 Apr, 2009 [facility] [address] [id number] [address] [place] [address], [place] [address] 17 Apr, 2009 [facility] [address] [id number] [address] [place] [address], [place] [address] 10 Apr, 2009 [facility] [address] [id number] [address] [place] [address], [place] [address] 10 Apr, 2009 [facility] [address] [id number] [address] [place] [id number] 09 Apr, 2009 [facility] [address] [id number] [address] [place] [address], [place] [address] 15 Mar, 2009 [facility] [address] [id number] [address] [place] [id number] 15 Mar, 2009 [facility] [address] [id number] [address] [place] [id number] Jul, IMMUNIZATIONS No Known Immunizations SOCIAL HISTORY Never Assessed REASON FOR VISIT PLAN OF CARE VITAL SIGNS Height 62 in 2013-05-27 Weight 247.23 lbs 2013-05-27 Temperature 98.6 degrees Fahrenheit 2013-05-27 Heart Rate 78 bpm 2013-05-27 Respiratory Rate 18 2013-05-27 Blood pressure systolic 120 mmHg 2013-05-27 Blood pressure diastolic 78 mmHg 2013-05-27 MEDICATIONS Unknown Medications RESULTS No Results PROCEDURES [...] removed and replaced 10/2018 Hospitalization History Cellulitis-[facility] Hospitalization History [facility]- Abd pain 03/07/2017 Hospitalization History [facility]- Abd pain 03/14/2017 Hospitalization History [facility]- No bowel movement, rash 04/13/2017 Hospitalization History [facility]- Abd pain r/ t kidney surgery on 04/10/17 04/17/2017 Hospitalization History [facility]- Abd pain r/ t kidney surgery on 04/10/17 04/18/2017 Hospitalization History [facility]- Lower abd pain 04/17 Hospitalization History [facility]- Cannot urinate 05/17 Hospitalization History [facility]- Pancreatitis Sx Hospitalization History [facility]- Stomach pain 2017 Hospitalization History [facility]- Left side pain 07/19 Hospitalization History [facility]- Incision site infec tion 08/30/2017 Hospitalization History [facility]- Post Op Serom a/Hematoma Left Abdomen. Discharged 09/04/17- Dr Daniel 09/02/2017 Hospitalization History [facility]- Right shoulder and back pain 10/22/2017 Hospitalization History [facility]- Shoulder/Back pain 11/11/2017 Hospitalization History [facility]- Right shoulder blad e pain 12/04/2017 Hospitalization History [facility]- C-Diff 12/13/2017 Hospitalization History C diff et MRSA 12/27/2017 Hospitalization History [facility] Bowel Obstruction 10/2018 Hospitalization History [facility]- Abdominal pain and nausea 01/08/2019
--- OUTSIDE RECORDS SUMMARY | 2020-01-21 18:07 | XMS REPORT ---
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 Aug, 2016 [facility] [address] [address] Aug, Neck mass R22.1 [place] [address] [place] [id number] [place] [address] Aug, Atelectasis J98.11 [place] [address] [address] 28 Jul, 2016 Hyperlipidemia, mixed E78.2 ; Atypical pneumonia J18.9 and Neck mass R22.1 [place] [address] [address] 15 Jul, 2016 Hemoptysis R04.2 [place] [address] [address] 08 Jul, 2016 Acute non-recurrent pansinus itis J01.40 ; Hemoptysis R04.2 ; Polydipsia R63.1 and Malaise R53.81 [facility] WALK IN [facility] [address] [address] May, Other viral agents as the ca use of diseases classified elsewhere B97.89 and Acute upper respiratory infection, unspecified J06.9 [facility] WALK IN [place] [address] [address] Mar, Nausea R11.0 [facility] WALK IN CARE [facility] [address] [address] Dec, Hives L50.9 [place] [address] [address] 14 Dec, 2015 [facility] WALK IN [facility] [address] [address] 10 Dec, 2015 Cutaneous abscess of limb, u nspecified L02.419 ; Cellulitis of unspecified part of limb L03.119 ; Encounter for incision and drainage procedure Z01.89 and Encounter for recheck of abscess following i ncision and drainage Z09 [facility] WALK IN [facility] [address] [id number] [address] [place] [id number] 09 Dec, 2015 Abscess of leg, right L02.41 5 [place] [address] [id number] [address] [place] [address] 08 Dec, 2015 Cellulitis of unspecified pa rt of limb L03.119 and Cutaneous abscess of limb, unspecified L02.419 [place] [address] [id number] [address] [place] [address] 06 Dec, 2015 [place] [address] [id number] [address] [place] [address] Dec, [facility] WALK IN [place] [address] [id number] [address] [place] [address] Aug, [place] [address] [facility] [id number] [address] [place] [address] Aug, [facility] WALK IN [place] [address] [id number] [address] [place] [id number] 04 Jul, 2015 Pain in unspecified wrist M2 5.539 and Back pain, thoracic M54.6 [facility] WALK IN [place] [address] [facility] [id number] [address] [place] [address] 13 Jun, 2015 Strain of right wrist, initi al encounter S66.911A [place] [address] [facility] [id number] [address] [place] [address] 11 Jun, 2015 Chronic pancreatitis, unspec ified pancreatitis type K86.1 ; Hirsuties L68.0 ; Morbid (severe) obesity due to excess calories E66.01 ; Chronic pancreatitis K86.1 and Asthma J45.909 [place] [address] [facility] [id number] [address] [place] [address] May, [place] [address] [facility] [id number] [address] [place] [address] May, Hyperlipidemia, mixed E78.2 and Muscle spasm of back M62.830 [facility] [address] [id number] [address] [place] [address] Apr, [facility] [address] [facility] [id number] [address] [place] [address] Apr, Torticollis M43.6 [facility] [address] [facility] [id number] [address] [place] [address] Apr, Right-sided thoracic back pa in M54.6 [facility] [address] [facility] [id number] [address] [place] [address] Mar, Rash R21 [facility] [address] [facility] [id number] [address] [place] [address] Mar, [facility] [address] [place] [id number] [address] [place] [address] Jan, [facility] [address] [place] [id number] [address] [place] [id number] Dec, [facility] [address] [place] [id number] [address] [place] [address] Dec, Urinary frequency 788.41 and Nocturia more than twice per night 788.43 [facility] [address] [place] [id number] [address] [place] [address] Nov, [facility] [address] [place] [id number] [address] [place] [id number] Nov, [facility] [address] [facility] [id number] [address] [place] [address] Nov, Abdominal pain 789.00 [facility] [address] [place] [id number] [address] [place] [address] October, TDAP DX V06.1 [facility] [address] [facility] [id number] [address] [place] [address] October, [facility] [address] [place] [id number] [address] [place] [address] October, Disturbance of skin sensatio n 782.0 ; Wrist pain, right 719.43 ; Hyperlipidemia 272.4 and Skin lesion of face 709.9 [facility] [address] [id number] [address] [place] [address] Sep, [facility] [address] [id number] [address] [place] [address] Sep, [facility] [address] [id number] [address] [place] [address] Aug, [facility] [address] [id number] [address] [place] [address] Aug, [facility] [address] [id number] [address] [place] [address] Aug, [facility] [address] [id number] [address] [place] [address] Aug, [facility] [address] [id number] [address] [place] [id number] Aug, [facility] [address] [id number] [address] [place] [id number] Aug, [facility] [address] [id number] [address] [place] [address] Aug, [facility] [address] [id number] [address] [place] [address] Aug, [facility] [address] [id number] [address] [place] [address] Aug, [facility] [address] [id number] [address] [place] [id number] Aug, [facility] [address] [id number] [address] [place] [id number] Aug, [facility] [address] [id number] [address] [place] [phone] Aug, [facility] [address] [id number] [address] [place] [address], [place] [address] Aug, [facility] [address] [id number] [address] [place] [address], [place] [address] Aug, [facility] [address] [id number] [address] [place] [address], [place] [address] Jul, [facility] [address] [id number] [address] [place] [address], [place] [address] Jul, 2014 [facility] [address] [id number] [address] [place] [address], [place] [id number] Jul, [facility] [address] [id number] [address] [place] [address], [place] [address] Jul, [facility] [address] [id number] [address] [place] [address], [place] [id number] Jul, [facility] [address] [id number] [address] [place] [address], [place] [id number] Jul, [facility] [address] [id number] [address] [place] [address], [place] [address] Jun, [facility] [address] [id number] [address] [place] [address], [place] [id number] Jun, [facility] [address] [id number] [address] [place] [address], [place] [address] Jun, [facility] [address] [id number] [address] [place] [address], [place] [address] Jun, [facility] [address] [id number] [address] [place] [address], [place] [address] Jun, [facility] [address] [id number] [address] [place] [address], [place] [address] Jun, [facility] [address] [id number] [address] [place] [address], [place] [address] Jun, [facility] [address] [id number] [address] [place] [address], [place] [address] Jun, [facility] [address] [id number] [address] [place] [address], [place] [id number] May, [facility] [address] [id number] [address] [place] [address], [place] [id number] May, [facility] [address] [id number] [address] [place] [address], [place] [address] May, [facility] [address] [id number] [address] [place] [address], [place] [id number] May, [facility] [address] [id number] [address] [place] [address], [place] [address] May, [facility] [address] [id number] [address] [place] [address], [place] [id number] May, [facility] [address] [id number] [address] [place] [address], [place] [address] May, [facility] [address] [id number] [address] [place] [address], [place] [address] May, [facility] [address] [id number] [address] [place] [address], [place] [address] May, [facility] [address] [id number] [address] [place] [address], [place] [id number] May, [facility] [address] [id number] [address] [place] [address], [place] [address] May, [facility] [address] [id number] [address] [place] [address], [place] [address] May, [facility] [address] [id number] [address] [place] [address], [place] [id number] Apr, [facility] [address] [id number] [address] [place] [address], [place] [id number] Apr, [facility] [address] [id number] [address] [place] [address], [place] [id number] Apr, [facility] [address] [id number] [address] [place] [address], [place] [address] Apr, [facility] [address] [id number] [address] [place] [address], [place] [address] Apr, [facility] [address] [id number] [address] [place] [address], [place] [id number] Apr, [facility] [address] [id number] [address] [place] [address], [place] [address] Apr, [facility] [address] [id number] [address] [place] [address], [place] [address] Apr, [facility] [address] [id number] [address] [place] [address], [place] [address] Apr, [facility] [address] [id number] [address] [place] [address], [place] [id number] Apr, [facility] [address] [id number] [address] [place] [address], [place] [address] Apr, [facility] [address] [id number] [address] [place] [address], [place] [address] Apr, [facility] [address] [id number] [address] [place] [address], [place] [id number] Mar, [facility] [address] [id number] [address] [place] [address], [place] [id number] Mar, [facility] [address] [id number] [address] [place] [address], [place] [address] Mar, [facility] [address] [id number] [address] [place] [address], [place] [id number] Mar, [facility] [address] [id number] [address] [place] [address], [place] [id number] 10 Feb, 2014 [facility] [address] [id number] [address] [place] [address], [place] [id number] 10 Feb, 2014 [facility] [address] [id number] [address] [place] [address], [place] [id number] 05 Feb, 2014 [facility] [address] [id number] [facility] [place] [address] Feb, 2013 [facility] [address] [id number] [address] [place] [address], [place] [id number] Feb, [facility] [address] [id number] [address] [place] [address], [place] [address] Feb, [facility] [address] [id number] [address] [place], [place] [address], [place] [address] Jan, [facility] [address] [id number] [address] [place] [address], [place] [address] Jan, [facility] [address] [id number] [address] [place] [address], [place] [address] Jan, [facility] [address] [id number] [address] [place] [address], [place] [address] Jan, [facility] [address] [id number] [address] [place] [address], [place] [address] Jan, [facility] [address] [id number] [address] [place] [address], [place] [address] Jan, [facility] [address] [id number] [address] [place] [address], [place] [address] Jan, [facility] [address] [id number] [address] [place] [address], [place] [address] Jan, [facility] [address] [id number] [address] [place] [address], [place] [address] Jan, [facility] [address] [id number] [address] [place] [address], [place] [address] Jan, [facility] [address] [id number] [address] [place] [address], [place] [address] Jan, [facility] [address] [id number] [address] [place] [address], [place] [address] Jan, [facility] [address] [id number] [address] [place] [address], [place] [address] Jan, [facility] [address] [id number] [facility] [place] [address] Jan, [facility] [address] [id number] [address] [place] [address], [place] [address] Dec, [facility] [address] [id number] [address] [place] [address], [place] [address] Dec, [facility] [address] [id number] [address] [place] [address], [place] [address] Dec, [facility] [address] [id number] [address] [place] [address], [place] [address] Dec, [facility] [address] [id number] [address] [place] [address], [place] [address] Nov, [facility] [address] [id number] [address] [place] [address], [place] [address] Nov, [facility] [address] [id number] [address] [place] [address], [place] [address] Nov, [facility] [address] [id number] [address] [place] [address], [place] [address] Nov, [facility] [address] [id number] [address] [place] [address], [place] [address] Nov, [facility] [address] [id number] [address] [place] [address], [place] [address] October, [facility] [address] [id number] [address] [place] [address], [place] [address] October, [facility] [address] [id number] [address] [place] [address], [place] [address] October, [facility] [address] [id number] [address] [place] [address], [place] [address] October, [facility] [address] [id number] [address] [place] [address], [place] [address] October, [facility] [address] [id number] [address] [place] [address], [place] [address] 15 Oct, 2013 [facility] [address] [id number] [address] [place] [address], [place] [address] October, [facility] [address] [id number] [address] [place] [address], [place] [address] October, [facility] [address] [id number] [address] [place] [address], [place] [address] October, [facility] [address] [id number] [address] [place] [address], [place] [address] October, [facility] [address] [id number] [address] [place] [address], [place] [address] October, [facility] [address] [id number] [address] [place] [address], [place] [address] October, [facility] [address] [id number] [address] [place] [address], [place] [address] October, [facility] [address] [id number] [address] [place] [address], [place] [address] October, [facility] [address] [id number] [address] [place] [address], [place] [address] Sep, [facility] [address] [id number] [address] [place] [address], [place] [address] Sep, [facility] [address] [id number] [address] [place] [address], [place] [address] Sep, [facility] [address] [id number] [address] [place] [address], [place] [address] Sep, [facility] [address] [id number] [address] [place] [address], [place] [address] Sep, [facility] [address] [id number] [address] [place] [address], [place] [address] Sep, [facility] [address] [id number] [address] [place] [address], [place] [address] Sep, [facility] [address] [id number] [facility] [place] [address] Sep, [facility] [address] [id number] [address] [place] [address], [place] [address] Sep, [facility] [address] [id number] [address] [place] [address], [place] [address] Sep, [facility] [address] [id number] [address] [place] [address], [place] [address] Sep, [facility] [address] [id number] [address] [place] [address], [place] [address] Sep, [facility] [address] [id number] [address] [place] [address], [place] [address] Sep, [facility] [address] [id number] [address] [place] [address], [place] [address] Sep, [facility] [address] [id number] [address] [place] [address], [place] [address] Sep, [facility] [address] [id number] [address] [place] [address], [place] [address] Aug, [facility] [address] [id number] [address] [place] [address], [place] [address] Aug, [facility] [address] [id number] [address] [place] [address], [place] [address] Aug, [facility] [address] [id number] [address] [place] [address], [place] [address] Aug, [facility] [address] [id number] [address] [place] [address], [place] [address] Jul, [facility] [address] [id number] [address] [place] [address], [place] [address] Jul, [facility] [address] [id number] [address] [place] [address], [place] [address] Jul, [facility] [address] [id number] [address] [place] [address], [place] [address] 03 Jul, 2013 [facility] [address] [id number] [address] [place] [address], [place] [address] 15 Jun, 2013 [facility] [address] [id number] [address] [place] [address], [place] [address] 15 Jun, 2013 [facility] [address] [id number] [address] [place] [address], [place] [address] 15 Jun, 2013 [facility] [address] [id number] [address] [place] [address], [place] [address] 15 Jun, 2013 [facility] [address] [id number] [address] [place] [address], [place] [address] Jun, [facility] [address] [id number] [address] [place] [address], [place] [address] Jun, [facility] [address] [id number] [address] [place] [address], [place] [address] 08 Jun, 2013 [facility] [address] [id number] [address] [place] [address], [place] [address] 08 Jun, 2013 [facility] [address] [id number] [address] [place] [address], [place] [address] May, [facility] [address] [id number] [address] [place] [address], [place] [address] May, [facility] [address] [id number] [address] [place] [address], [place] [address] 18 May, 2013 [facility] [address] [id number] [address] [place] [address], [place] [address] 18 May, 2013 [facility] [address] [id number] [address] [place] [address], [place] [address] 17 May, 2013 [facility] [address] [id number] [address] [place] [address], [place] [id number] 17 May, 2013 [facility] [address] [id number] [address] [place] [address], [place] [address] 17 May, 2013 [facility] [address] [id number] [address] [place] [address], [place] [address] 17 May, 2013 [facility] [address] [id number] [address] [place] [address], [place] [address] 16 May, 2013 [facility] [address] [id number] [address] [place] [address], [place] [address] 16 May, 2013 [facility] [address] [id number] [address] [place] [address], [place] [address] 14 May, 2013 [facility] [address] [id number] [address] [place] [address], [place] [address] 14 May, 2013 [facility] [address] [id number] [address] [place] [address], [place] [address] 13 May, 2013 [facility] [address] [id number] [address] [place] [address], [place] [id number] 13 May, 2013 [facility] [address] [id number] [address] [place] [address], [place] [address] 12 May, 2013 [facility] [address] [id number] [address] [place] [address], [place] [address] 12 May, 2013 [facility] [address] [id number] [address] [place] [address], [place] [address] 11 May, 2013 [facility] [address] [id number] [address] [place] [address], [place] [address] 11 May, 2013 [facility] [address] [id number] [address] [place] [address], [place] [address] 26 Apr, 2013 [facility] [address] [id number] [address] [place] [address], [place] [address] Apr, [facility] [address] [id number] [address] [place] [address], [place] [address] Apr, [facility] [address] [id number] [address] [place] [address], [place] [address] 26 Apr, 2013 [facility] [address] [id number] [address] [place] [address], [place] [address] 27 Aug, 2012 [facility] [address] [id number] [address] [place] [address], [place] [address] 18 Aug, 2012 [facility] [address] [id number] [address] [place] [address], [place] [address] 06 Aug, 2012 [facility] [address] [id number] [address] [place] [address], [place] [id number] 05 Aug, 2012 [facility] [address] [id number] [address] [place] [address], [place] [address] 04 Jul, 2012 [facility] [address] [id number] [address] [place] [address], [place] [id number] Jun, [facility] [address] [id number] [address] [place] [address], [place] [address] Jun, [facility] [address] [id number] [address] [place] [address], [place] [address] Jun, [facility] [address] [id number] [address] [place] [address], [place] [address] Jun, [facility] [address] [id number] [address] [place] [address], [place] [address] May, [facility] [address] [id number] [address] [place] [address], [place] [address] 05 May, 2012 [facility] [address] [id number] [address] [place] [address], [place] [address] 05 May, 2012 [facility] [address] [id number] [address] [place] [address], [place] [address] May, [facility] [address] [id number] [address] [place] [address], [place] [address] May, [facility] [address] [id number] [address] [place] [address], [place] [address] May, [facility] [address] [id number] [address] [place] [address], [place] [address] May, [facility] [address] [id number] [address] [place] [address], [place] [address] Apr, [facility] [address] [id number] [address] [place] [address], [place] [address] Apr, [facility] [address] [id number] [address] [place] [address], [place] [address] Apr, [facility] [address] [id number] [address] [place] [address], [place] [address] Apr, [facility] [address] [id number] [address] [place] [address], [place] [address] Apr, [facility] [address] [id number] [address] [place] [address], [place] [address] Apr, [facility] [address] [id number] [address] [place] [address], [place] [address] Apr, [facility] [address] [id number] [address] [place] [address], [place] [address] Mar, [facility] [address] [id number] [address] [place] [address], [place] [address] Mar, [facility] [address] [id number] [address] [place] [address], [place] [address] Mar, [facility] [address] [id number] [address] [place] [address] Mar, [facility] [address] [id number] [address] [place] [address], [place] [address] Mar, [facility] [address] [id number] [address] [place] [id number] 19 Mar, 2012 [facility] [address] [id number] [address] [place] [address], [place] [address] 17 Mar, 2012 [facility] [address] [id number] [address] [place] [address], [place] [address] 17 Mar, 2012 [facility] [address] [id number] [address] [place] [address] Mar, [facility] [address] [id number] [address] [place] [address], [place] [address] Mar, [facility] [address] [id number] [address] [place] [address], [place] [address] Mar, [facility] [address] [id number] [address] [place] [address], [place] [address] Mar, [facility] [address] [id number] [address] [place] [address], [place] [address] Feb, [facility] [address] [id number] [address] [place] [address], [place] [address] Jan, [facility] [address] [id number] [address] [place] [address], [place] [address] Jan, [facility] [address] [id number] [address] [place] [address], [place] [address] Jan, [facility] [address] [id number] [address] [place] [address], [place] [address] Jan, [facility] [address] [id number] [address] [place] [address], [place] [address] Jan, [facility] [address] [id number] [address] [place] [address], [place] [address] Dec, [facility] [address] [id number] [address] [place] [address], [place] [address] Dec, [facility] [address] [id number] [address] [place] [address], [place] [address] Nov, [facility] [address] [id number] [address] [place] [address], [place] [address] Nov, [facility] [address] [id number] [address] [place] [address], [place] [id number] Nov, [facility] [address] [id number] [address] [place] [address], [place] [address] October, [facility] [address] [id number] [address] [place] [address] October, [facility] [address] [id number] [address] [place] [address], [place] [address] October, [facility] [address] [id number] [address] [place] [address], [place] [address] October, [facility] [address] [id number] [address] [place] [address], [place] [address] October, [facility] [address] [id number] [address] [place] [address], [place] [address] October, [facility] [address] [id number] [address] [place] [address], [place] [address] October, [facility] [address] [id number] [address] [place] [address], [place] [address] Sep, [facility] [address] [id number] [address] [place] [address], [place] [address] 26 Sep, 2011 [facility] [address] [id number] [address] [place] [address], [place] [id number] 26 Sep, 2011 [facility] [address] [id number] [address] [place] [address], [place] [address] 25 Sep, 2011 [facility] [address] [id number] [address] [place] [address], [place] [address] 24 Sep, 2011 [facility] [address] [id number] [address] [place] [address], [place] [address] 19 Sep, 2011 [facility] [address] [id number] [address] [place] [address], [place] [address] 17 Sep, 2011 [facility] [address] [id number] [address] [place] [address], [place] [address] 16 Sep, 2011 [facility] [address] [id number] [address] [place] [address], [place] [id number] 16 Sep, 2011 [facility] [address] [id number] [address] [place] [address], [place] [id number] 14 Sep, 2011 [facility] [address] [id number] [address] [place] [address], [place] [address] 13 Sep, 2011 [facility] [address] [id number] [address] [place] [address], [place] [id number] 10 Sep, 2011 [facility] [address] [id number] [address] [place] [address], [place] [id number] 09 Sep, 2011 [facility] [address] [id number] [address] [place] [address], [place] [address] 27 Aug, 2011 [facility] [address] [id number] [address] [place] [address], [place] [address] 12 Aug, 2011 [facility] [address] [id number] [address] [place] [address], [place] [address] 08 Aug, 2011 [facility] [address] [id number] [address] [place] [address], [place] [id number] 06 Aug, 2011 [facility] [address] [id number] [address] [place] [address], [place] [address] 28 Jul, 2011 [facility] [address] [id number] [address] [place] [address], [place] [id number] 22 Jul, 2011 [facility] [address] [id number] [address] [place] [address], [place] [id number] 16 Jul, 2011 [facility] [address] [id number] [address] [place] [address], [place] [id number] 15 Jul, 2011 [facility] [address] [id number] [address] [place] [address], [place] [id number] 14 Jul, 2011 [facility] [address] [id number] [address] [place] [address], [place] [address] 10 Jul, 2011 [facility] [address] [id number] [address] [place] [address], [place] [id number] 30 Jun, 2011 [facility] [address] [id number] [address] [place] [address], [place] [id number] 05 Jun, 2011 [facility] [address] [id number] [address] [place] [address], [place] [id number] Jun, [facility] [address] [id number] [address] [place] [address], [place] [address] Jun, [facility] [address] [id number] [address] [place] [address], [place] [address] Jun, [facility] [address] [id number] [address] [place] [address], [place] [address] May, [facility] [address] [id number] [address] [place] [address], [place] [id number] May, [facility] [address] [id number] [address] [place] [address], [place] [id number] May, [facility] [address] [id number] [address] [place] [address], [place] [id number] May, [facility] [address] [id number] [address] [place] [address], [place] [address] May, [facility] [address] [id number] [address] [place] [address], [place] [id number] May, [facility] [address] [id number] [address] [place] [address], [place] [id number] May, [facility] [address] [id number] [address] [place] [address], [place] [id number] Apr, [facility] [address] [id number] [address] [place] [address], [place] [id number] Apr, [facility] [address] [id number] [address] [place] [address], [place] [id number] Apr, [facility] [address] [id number] [address] [place] [address], [place] [address] Apr, [facility] [address] [id number] [address] [place] [address], [place] [address] Apr, [facility] [address] [id number] [address] [place] [address], [place] [address] Apr, [facility] [address] [id number] [address] [place] [address], [place] [id number] Mar, [facility] [address] [id number] [address] [place] [address], [place] [id number] Mar, [facility] [address] [id number] [address] [place] [address], [place] [address] Mar, [facility] [address] [id number] [address] [place] [address], [place] [id number] Mar, [facility] [address] [id number] [address] [place] [address], [place] [address] Jan, [facility] [address] [id number] [address] [place] [address], [place] [address] Dec, [facility] [address] [id number] [address] [place] [address], [place] [id number] Dec, [facility] [address] [id number] [address] [place] [address], [place] [id number] October, [facility] [address] [id number] [address] [place] [address], [place] [address] Sep, [facility] [address] [id number] [address] [place] [address], [place] [id number] Sep, [facility] [address] [id number] [address] [place] [address], [place] [id number] Jul, [facility] [address] [id number] [address] [place] [address], [place] [id number] 16 Jul, 2010 [facility] [address] [id number] [address] [place] [address], [place] [address] May, [facility] [address] [id number] [address] [place] [address], [place] [address] May, [facility] [address] [id number] [address] [place] [address], [place] [id number] May, [facility] [address] [id number] [address] [place] [address] [address] May, [facility] [address] [id number] [address] [place] [address], [place] [address] Apr, [facility] [address] [id number] [address] [place] [address], [place] [id number] Apr, [facility] [facility] [address] [id number] [address] [place] [address], [place] [id number] Apr, [facility] [address] [id number] [address] [place] [address], [place] [id number] Apr, [facility] [address] [id number] [address] [place] [address], [place] [id number] Apr, [facility] [address] [id number] [address] [place] [address], [place] [id number] Mar, [facility] [address] [id number] [address] [place] [address], [place] [id number] 14 Mar, 2010 [facility] [address] [id number] [address] [place] [address], [place] [id number] Mar, [facility] [address] [id number] [address] [place] [address], [place] [id number] Mar, [facility] [address] [id number] [address] [place] [address], [place] [id number] Jan, [facility] [address] [id number] [address] [place] [id number] 15 Dec, 2009 [facility] [address] [id number] [address] [place] [id number] Sep, [facility] [address] [id number] [address] [place] [address], [place] [id number] May, [facility] [address] [id number] [address] [place] [phone] May, [facility] [address] [id number] [address] [place] [address], [place] [id number] May, [facility] [address] [id number] [address] [place] [id number] Apr, [facility] [address] [facility] [id number] [address] [place] [id number] Apr, [facility] [address] [facility] [id number] [address] [place] [id number] Apr, [facility] [address] [facility] [id number] [address] [place] [id number] Apr, [facility] [address] [facility] [id number] [address] [place] [id number] Apr, [facility] [address] [facility] [id number] [address] [place] [id number] Mar, [facility] [address] [facility] [id number] [address] [place] [id number] Mar, [facility] [address] [facility] [id number] [address] [place] [id number] Jul, IMMUNIZATIONS No Known Immunizations SOCIAL HISTORY Never Assessed REASON FOR VISIT PLAN OF CARE VITAL SIGNS Height 62 in 2013-06-05 Weight 247.03 lbs 2013-06-05 Temperature 98.4 degrees Fahrenheit 2013-06-05 Heart Rate 84 bpm 2013-06-05 Respiratory Rate 20 2013-06-05 Blood pressure systolic 120 mmHg 2013-06-05 Blood pressure diastolic 70 mmHg 2013-06-05 MEDICATIONS Unknown Medications RESULTS No Results PROCEDURES Procedure Date Ordered Result Body Site SKIN TISSUE PROCEDURE Jun 05, 2013 INSTRUCTIONS MEDICATIONS ADMINISTERED No Known Medications [...] and replaced VC 10/2018 Hospitalization History Cellulitis-[facility] Hospitalization History [facility] [place]- Abd pain 03/07/2017 Hospitalization History [facility] [place]- Abd pain 03/14/2017 Hospitalization History [facility] [place]- No bowel movement, rash 04/13/2017 Hospitalization History [facility] [place]- Abd pain r/ t kidney surgery on 04/10/17 04/17/2017 Hospitalization History [facility] [place]- Abd pain r/ t kidney surgery on 04/10/17 04/18/2017 Hospitalization History [facility] [place]- Lower abd pain 04/17 Hospitalization History [facility] [place]- Cannot urinate 05/17 Hospitalization History [facility]- Pancreatitis Sx Hospitalization History [facility] [place]- Stomach pain 2017 Hospitalization History [facility] [place]- Left side pain 07/19 Hospitalization History [facility]- Incision site infec tion 08/30/2017 Hospitalization History [facility]- Post Op Serom a/Hematoma Left Abdomen. Discharged 09/04/17- Dr Daniel 09/02/2017 Hospitalization History [facility] [place]- Right shoulder and back pain 10/22/2017 Hospitalization History [facility] [place]- Shoulder/Back pain 11/11/2017 Hospitalization History [facility] [place]- Right shoulder blad e pain 12/04/2017 Hospitalization History [facility]- C-Diff 12/13/2017 Hospitalization History C diff et MRSA 12/27/2017 Hospitalization History [facility] Bowel Obstruction 10/2018 Hospitalization History [facility]- Abdominal pain and nausea 01/08/2019
--- OUTSIDE RECORDS SUMMARY | 2020-01-21 18:08 | XMS REPORT ---
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 [place] [address] [place] [id number] [address] [place] [address] Nov, Headache around the eyes R51 [facility], [place] [address] [facility] [id number] [address] [place] [address] Nov, [facility] [place] [address] [place] [id number] [address] [place] [address] October, STD exposure Z20.2 [facility], [place] [address] [place] [id number] [address] [place] [address] October, STD exposure Z20.2 [facility] [place] [address] [place] [id number] [address] [place] [address] October, Chronic post-traumatic stres s disorder (PTSD) F43.12 ; Generalized social phobia F40.11 ; Trichotillomania F63.3 and Restless leg syndrome G25.81 [facility], [place] [address] [place] [id number] [address] [place] [address] October, [facility] [place] [address] [place] [id number] [address] [place] [address] Sep, [facility] [place] [address] [address] 17 Aug, 2016 [facility] [place] [address] [address] Aug, [facility] [place] [address] [address] 08 Aug, 2016 Neck mass R22.1 [place] [address] [address] 03 Aug, 2016 Atelectasis J98.11 [place] [address] [address] Jul, Hyperlipidemia, mixed E78.2 ; Atypical pneumonia J18.9 and Neck mass R22.1 [place] [address] [address] 15 Jul, 2016 Hemoptysis R04.2 [place] [address] [address] Jul, Acute non-recurrent pansinus itis J01.40 ; Hemoptysis R04.2 ; Polydipsia R63.1 and Malaise R53.81 [facility] [address] [address] May, Other viral agents as the ca use of diseases classified elsewhere B97.89 and Acute upper respiratory infection, unspecified J06.9 [facility] [address] Mar, Nausea R11.0 [facility] [address] [address] Dec, Hives L50.9 [place] [address] [address] 14 Dec, 2015 [facility] [address] [address] 10 Dec, 2015 Cutaneous abscess of limb, u nspecified L02.419 ; Cellulitis of unspecified part of limb L03.119 ; Encounter for incision and drainage procedure Z01.89 and Encounter for recheck of abscess following i ncision and drainage Z09 [facility] [address] [id number] [address] [place] [address] 09 Dec, 2015 Abscess of leg, right L02.41 [address] [place] [address] [id number] [address] [place] [address] 08 Dec, 2016 Cellulitis of unspecified pa rt of limb L03.119 and Cutaneous abscess of limb, unspecified L02.419 [place] [address] [id number] [address] [place] [address] Dec, [place] [address] [id number] [address] [place] [address] Dec, [facility] [address] [id number] [address] [place] [address] Aug, [place] [address] [id number] [address] [place] [address] 04 Aug, 2015 [facility] [place] [address] [id number] [address] [place] [address] 04 Jul, 2015 Pain in unspecified wrist M2 5.539 and Back pain, thoracic M54.6 [facility] [place] [address] [id number] [address] [place] [address] 13 Jun, 2016 Strain of right wrist, initi al encounter S66.911A [place] [address] [id number] [address] [place] [address] 11 Jun, 2016 Chronic pancreatitis, unspec ified pancreatitis type K86.1 ; Hirsuties L68.0 ; Morbid (severe) obesity due to excess calories E66.01 ; Chronic pancreatitis K86.1 and Asthma J45.909 [place] [address] [id number] [address] [place] [address] 14 May, 2015 [place] [address] [place] [id number] [address] [place] [address] May, Hyperlipidemia, mixed E78.2 and Muscle spasm of back M62.830 [facility] [place] [address] [place] [id number] [address] [place] [address] Apr, [facility] [place] [address] [place] [id number] [address] [place] [address] Apr, Torticollis M43.6 [facility] [place] [address] [place] [id number] [place] [address] Apr, Right-sided thoracic back pa in M54.6 [facility] [place] [address] [address] Mar, Rash R21 [facility] [place] [address] [place] [id number] [place] [address] Mar, [facility] [place] [address] [place] [id number] [place] [address] Jan, [facility] [place] [address] [place] [id number] [address] [place] [address] Dec, [facility] [place] [address] [address] Dec, Urinary frequency 788.41 and Nocturia more than twice per night 788.43 [facility] [place] [address] [place] [id number] [address] [place] [address] Nov, [facility] [place] [address] [place] [id number] [place] [address] Nov, [facility] [place] [address] [place] [id number] [address] [place] [address] Nov, Abdominal pain 789.00 [facility] [place] [address] [place] [id number] [address] [place] [address] October, TDAP DX V06.1 [facility] [place] [address] [place] [id number] [address] [place] [address] October, [facility] [address] [id number] [address] [place] [address] October, Disturbance of skin sensatio n 782.0 ; Wrist pain, right 719.43 ; Hyperlipidemia 272.4 and Skin lesion of face 709.9 [facility] [address] [id number] [address] [place] [address] Sep, [facility] [address] [id number] [address] [place] [address] Sep, [facility] [address] [id number] [address] [place] [address] Aug, [facility] [address] [id number] [address] [place] [address] Aug, [facility] [address] [id number] [address] [place] [address] Aug, [facility] [address] [id number] [address] [place] [address] Aug, [facility] [address] [id number] [address] [place] [address] Aug, [facility] [address] [id number] [address] [place] [address] 16 Aug, 2014 [facility] [address] [id number] [address] [place] [address] Aug, [facility] [address] [id number] [address] [place] [address] Aug, [facility] [address] [id number] [address] [place] [address] Aug, [facility] [address] [id number] [address] [place] [address] Aug, [facility] [address] [id number] [address] [place] [address] Aug, [facility] [address] [id number] [address] [place] [address], [place] [address] Aug, [facility] [address] [id number] [address] [place] [address], [place] [address] Aug, [facility] [address] [id number] [address] [place] [address], [place] [address] Aug, [facility] [address] [id number] [address] [place] [address], [place] [address] Jul, 2014 [facility] [address] [id number] [address] [place] [address], [place] [address] Jul, 2014 [facility] [address] [id number] [address] [place] [address], [place] [address] Jul, [facility] [address] [id number] [address] [place] [address], [place] [address] Jul, [facility] [address] [id number] [address] [place] [address], [place] [address] Jul, [facility] [address] [id number] [address] [place] [address], [place] [address] Jul, [facility] [address] [id number] [address] [place] [address], [place] [address] Jun, [facility] [address] [id number] [address] [place] [address], [place] [address] Jun, [facility] [address] [id number] [address] [place] [address], [place] [address] Jun, [facility] [address] [id number] [address] [place] [address], [place] [address] Jun, [facility] [address] [id number] [address] [place] [address], [place] [address] Jun, [facility] [address] [id number] [address] [place] [address], [place] [address] Jun, [facility] [address] [id number] [address] [place] [address], [place] [address] Jun, [facility] [address] [id number] [address] [place] [address], [place] [address] 15 Jun, 2014 [facility] [address] [id number] [address] [place] [address], [place] [address] May, [facility] [address] [id number] [address] [place] [address], [place] [address] May, [facility] [address] [id number] [address] [place] [address], [place] [address] May, [facility] [address] [id number] [address] [place] [address], [place] [address] May, [facility] [address] [id number] [address] [place] [address], [place] [address] May, [facility] [address] [id number] [address] [place] [address], [place] [address] May, [facility] [address] [id number] [address] [place] [address], [place] [address] May, [facility] [address] [id number] [address] [place] [address], [place] [address] May, [facility] [address] [id number] [address] [place] [address], [place] [address] May, [facility] [address] [id number] [address] [place] [address], [place] [address] May, [facility] [address] [id number] [address] [place] [address], [place] [address] May, [facility] [address] [id number] [address] [place] [address], [place] [address] May, [facility] [address] [id number] [address] [place] [address], [place] [address] Apr, [facility] [address] [id number] [address] [place] [address], [place] [address] Apr, [facility] [address] [id number] [address] [place] [address], [place] [address] Apr, [facility] [address] [id number] [address] [place] [address], [place] [address] Apr, [facility] [address] [id number] [address] [place] [address], [place] [address] Apr, [facility] [address] [id number] [address] [place] [address], [place] [address] Apr, [facility] [address] [id number] [address] [place] [address], [place] [address] Apr, [facility] [address] [id number] [address] [place] [address], [place] [address] Apr, [facility] [address] [id number] [address] [place] [address], [place] [address] Apr, [facility] [address] [id number] [address] [place] [address], [place] [address] Apr, [facility] [address] [id number] [address] [place] [address], [place] [address] Apr, [facility] [address] [id number] [address] [place] [address], [place] [address] Apr, [facility] [address] [id number] [address] [place] [address], [place] [address] Mar, [facility] [address] [id number] [address] [place] [address], [place] [address] Mar, [facility] [address] [id number] [address] [place] [address], [place] [address] Mar, [facility] [address] [id number] [address] [place] [address], [place] [address] Mar, [facility] [address] [id number] [address] [place] [address], [place] [address] Feb, [facility] [address] [id number] [address] [place] [address], [place] [address] Feb, [facility] [address] [id number] [facility] [place] [address] Feb, 2013 [facility] [facility] [address] [id number] [facility] [place] [address] Feb, 2013 [facility] [address] [id number] [facility] [place] [address] Feb, 2013 [facility] [address] [id number] [address] [place] [address], [place] [address] Feb, 2013 [facility] [address] [id number] [address] [place] [address], [place] [address] Jan, [facility] [address] [id number] [address] [place] [address], [place] [address] Jan, [facility] [address] [id number] [address] [place] [address], [place] [address] Jan, [facility] [address] [id number] [address] [place] [address], [place] [address] Jan, [facility] [address] [id number] [address] [place] [address], [place] [address] Jan, [facility] [address] [id number] [address] [place] [address], [place] [address] Jan, [facility] [address] [id number] [address] [place] [address], [place] [address] Jan, [facility] [address] [id number] [address] [place] [address], [place] [address] Jan, [facility] [address] [id number] [address] [place] [address], [place] [address] Jan, [facility] [address] [id number] [address] [place] [address], [place] [address] Jan, [facility] [address] [id number] [address] [place] [address], [place] [address] Jan, [facility] [address] [id number] [address] [place] [address], [place] [address] Jan, [facility] [address] [id number] [facility] [place] [address] Jan, [facility] [address] [id number] [address] [place] [address], [place] [address] Jan, [facility] [address] [id number] [address] [place] [address], [place] [address] Dec, [facility] [address] [id number] [address] [place] [address], [place] [address] Dec, [facility] [address] [id number] [address] [place] [address], [place] [address] Dec, [facility] [address] [id number] [address] [place] [address], [place] [address] Dec, [facility] [address] [id number] [address] [place] [address], [place] [address] Nov, [facility] [address] [id number] [address] [place] [address], [place] [address] Nov, [facility] [address] [id number] [address] [place] [address], [place] [address] Nov, [facility] [address] [id number] [address] [place] [address], [place] [address] Nov, [facility] [address] [id number] [address] [place] [address], [place] [address] Nov, [facility] [address] [id number] [address] [place] [address], [place] [address] October, [facility] [address] [id number] [address] [place] [address], [place] [address] October, [facility] [address] [id number] [address] [place] [address], [place] [address] October, [facility] [address] [id number] [address] [place] [address], [place] [address] October, [facility] [address] [id number] [address] [place] [address], [place] [address] 15 Oct, 2013 [facility] [address] [id number] [address] [place] [address], [place] [address] October, [facility] [address] [id number] [address] [place] [address], [place] [address] October, [facility] [address] [id number] [address] [place] [address], [place] [address] October, [facility] [address] [id number] [address] [place] [address], [place] [address] October, [facility] [address] [id number] [address] [place] [address], [place] [address] October, [facility] [address] [id number] [address] [place] [address], [place] [address] October, [facility] [address] [id number] [address] [place] [address], [place] [address] October, [facility] [address] [id number] [address] [place] [address], [place] [address] October, [facility] [address] [id number] [address] [place] [address], [place] [address] October, [facility] [address] [id number] [address] [place] [address], [place] [address] Sep, [facility] [address] [id number] [address] [place] [address], [place] [address] Sep, [facility] [address] [id number] [address] [place] [address], [place] [address] Sep, [facility] [address] [id number] [address] [place] [address], [place] [address] Sep, [facility] [address] [id number] [address] [place] [address], [place] [address] Sep, [facility] [address] [id number] [address] [place] [address], [place] [address] Sep, [facility] [address] [id number] [address] [place] [address], [place] [address] Sep, [facility] [address] [id number] [address] [place] [address], [place] [address] Sep, [facility] [address] [id number] [address] [place] [address], [place] [address] Sep, [facility] [address] [id number] [address] [place] [address], [place] [address] Sep, [facility] [address] [id number] [address] [place] [address], [place] [address] Sep, [facility] [address] [id number] [address] [place] [address], [place] [address] Sep, [facility] [address] [id number] [address] [place] [address], [place] [address] Sep, [facility] [address] [id number] [address] [place] [address], [place] [address] Sep, [facility] [address] [id number] [address] [place] [address], [place] [address] Sep, [facility] [address] [id number] [address] [place] [address], [place] [address] Aug, [facility] [address] [id number] [address] [place] [address], [place] [address] Aug, [facility] [address] [id number] [address] [place] [address], [place] [address] Aug, [facility] [address] [id number] [address] [place] [address], [place] [address] Aug, [facility] [address] [id number] [address] [place] [address], [place] [address] Jul, [facility] [address] [id number] [address] [place] [address], [place] [address] Jul, [facility] [address] [id number] [address] [place] [address] 06 Jul, 2013 [facility] [address] [id number] [address] [place] [address], [place] [address] 03 Jul, 2013 [facility] [address] [id number] [address] [place] [address], [place] [address] Jun, [facility] [address] [id number] [address] [place] [address], [place] [address] Jun, [facility] [address] [id number] [address] [place] [address], [place] [address] Jun, [facility] [address] [id number] [address] [place] [address], [place] [address] Jun, [facility] [address] [id number] [address] [place] [address], [place] [address] Jun, [facility] [address] [id number] [address] [place] [address], [place] [address] Jun, [facility] [address] [id number] [address] [place] [address], [place] [address] Jun, [facility] [address] [id number] [address] [place] [address], [place] [address] Jun, [facility] [address] [id number] [address] [place] [address], [place] [address] May, [facility] [address] [id number] [address] [place] [address], [place] [address] May, [facility] [address] [id number] [address] [place] [address], [place] [address] May, [facility] [address] [id number] [address] [place] [address], [place] [address] May, [facility] [address] [id number] [address] [place] [address], [place] [address] 17 May, 2013 [facility] [address] [id number] [address] [place] [id number] May, [facility] [address] [id number] [address] [place] [address], [place] [address] 17 May, 2013 [facility] [address] [id number] [address] [place] [address], [place] [address] 17 May, 2013 [facility] [address] [id number] [address] [place] [address], [place] [address] 16 May, 2013 [facility] [address] [id number] [address] [place] [address], [place] [address] 16 May, 2013 [facility] [address] [id number] [address] [place] [address], [place] [address] 14 May, 2013 [facility] [address] [id number] [address] [place] [address], [place] [address] 14 May, 2013 [facility] [address] [id number] [address] [place] [address], [place] [address] 13 May, 2013 [facility] [address] [id number] [address] [place] [address], [place] [address] 13 May, 2013 [facility] [address] [id number] [address] [place] [address], [place] [address] 12 May, 2013 [facility] [address] [id number] [address] [place] [address], [place] [address] 12 May, 2013 [facility] [address] [id number] [address] [place] [address], [place] [address] 11 May, 2013 [facility] [address] [id number] [address] [place] [address], [place] [address] 11 May, 2013 [facility] [address] [id number] [address] [place] [address], [place] [address] Apr, [facility] [address] [id number] [address] [place] [address], [place] [address] Apr, [facility] [address] [id number] [address] [place] [address], [place] [address] Apr, [facility] [address] [id number] [address] [place] [address], [place] [address] Apr, [facility] [address] [id number] [address] [place] [address], [place] [address] Aug, [facility] [address] [id number] [address] [place] [address], [place] [address] Aug, [facility] [address] [id number] [address] [place] [address], [place] [address] Aug, [facility] [address] [id number] [address] [place] [address], [place] [address] 05 Aug, 2012 [facility] [address] [id number] [address] [place] [address], [place] [address] Jul, [facility] [address] [id number] [address] [place] [address], [place] [address] Jun, [facility] [address] [id number] [address] [place] [address], [place] [address] Jun, [facility] [address] [id number] [address] [place] [address], [place] [address] Jun, [facility] [address] [id number] [address] [place] [address], [place] [address] Jun, [facility] [address] [id number] [address] [place] [address], [place] [address] May, [facility] [address] [id number] [address] [place] [address], [place] [address] 05 May, 2012 [facility] [address] [id number] [address] [place] [address], [place] [address] 05 May, 2012 [facility] [address] [id number] [address] [place] [address], [place] [address] May, [facility] [address] [id number] [address] [place] [address], [place] [address] May, [facility] [address] [id number] [address] [place] [address], [place] [address] May, [facility] [address] [id number] [address] [place] [address], [place] [address] May, [facility] [address] [id number] [address] [place] [address], [place] [address] Apr, [facility] [address] [id number] [address] [place] [address], [place] [address] Apr, [facility] [address] [id number] [address] [place] [address], [place] [address] Apr, [facility] [address] [id number] [address] [place] [address], [place] [address] Apr, [facility] [address] [id number] [address] [place] [address], [place] [address] Apr, [facility] [address] [id number] [address] [place] [address], [place] [address] Apr, [facility] [address] [id number] [address] [place] [address], [place] [address] Apr, [facility] [address] [id number] [address] [place] [address], [place] [address] Mar, [facility] [address] [id number] [address] [place] [address], [place] [address] Mar, [facility] [address] [id number] [address] [place] [address] Mar, [facility] [address] [id number] [address] [place] [address], [place] [address] Mar, [facility] [address] [id number] [address] [place] [address] Mar, [facility] [address] [id number] [address] [place] [address], [place] [address] Mar, [facility] [address] [id number] [address] [place] [address] Mar, [facility] [address] [id number] [address] [place] [address] Mar, [facility] [address] [id number] [address] [place] [address], [place] [address] Mar, [facility] [address] [id number] [address] [place] [address], [place] [address] Mar, [facility] [address] [id number] [address] [place] [address], [place] [address] Mar, [facility] [address] [id number] [address] [place] [address], [place] [address] Mar, [facility] [address] [id number] [address] [place] [address], [place] [address] Feb, [facility] [address] [id number] [address] [place] [address], [place] [address] Jan, [facility] [address] [id number] [address] [place] [address], [place] [address] Jan, [facility] [address] [id number] [address] [place] [address], [place] [address] Jan, [facility] [address] [id number] [address] [place] [address], [place] [address] Jan, [facility] [address] [id number] [address] [place] [address], [place] [address] Jan, [facility] [address] [id number] [address] [place] [address], [place] [address] Dec, [facility] [address] [id number] [address] [place] [address], [place] [address] Dec, [facility] [address] [id number] [address] [place] [address], [place] [address] Nov, [facility] [address] [id number] [address] [place] [address], [place] [address] Nov, [facility] [address] [id number] [address] [place] [address], [place] [address] Nov, [facility] [address] [id number] [address] [place] [address], [place] [address] October, [facility] [address] [id number] [address] [place] [address], [place] [address] October, [facility] [address] [id number] [address] [place] [address], [place] [address] October, [facility] [address] [id number] [address] [place] [address], [place] [address] October, [facility] [address] [id number] [address] [place] [address], [place] [address] October, [facility] [address] [id number] [address] [place] [address], [place] [address] October, [facility] [address] [id number] [address] [place] [address], [place] [address] October, [facility] [address] [id number] [address] [place] [address], [place] [address] Sep, [facility] [address] [id number] [address] [place] [address], [place] [address] Sep, [facility] [address] [id number] [address] [place] [address], [place] [address] Sep, [facility] [address] [id number] [address] [place] [address], [place] [address] 25 Sep, 2011 [facility] [address] [id number] [address] [place] [address], [place] [address] 24 Sep, 2011 [facility] [address] [id number] [address] [place] [address], [place] [address] 19 Sep, 2011 [facility] [address] [id number] [address] [place] [address], [place] [address] 17 Sep, 2011 [facility] [address] [id number] [address] [place] [address], [place] [address] 16 Sep, 2011 [facility] [address] [id number] [address] [place] [address], [place] [address] 16 Sep, 2011 [facility] [address] [id number] [address] [place] [address], [place] [address] 14 Sep, 2011 [facility] [address] [id number] [address] [place] [address], [place] [address] 13 Sep, 2011 [facility] [address] [id number] [address] [place] [address], [place] [address] 10 Sep, 2011 [facility] [address] [id number] [address] [place] [address], [place] [address] 09 Sep, 2011 [facility] [address] [id number] [address] [place] [address], [place] [address] 27 Aug, 2011 [facility] [address] [id number] [address] [place] [address], [place] [address] 12 Aug, 2011 [facility] [address] [id number] [address] [place] [address], [place] [address] 08 Aug, 2011 [facility] [address] [id number] [address] [place] [address], [place] [address] 06 Aug, 2011 [facility] [address] [id number] [address] [place] [address], [place] [address] 28 Jul, 2011 [facility] [address] [id number] [address] [place] [address], [place] [address] 22 Jul, 2011 [facility] [address] [id number] [address] [place] [address], [place] [address] 16 Jul, 2011 [facility] [address] [id number] [address] [place] [address], [place] [address] 15 Jul, 2011 [facility] [address] [id number] [address] [place] [address], [place] [address] 14 Jul, 2011 [facility] [address] [id number] [address] [place] [address], [place] [address] 10 Jul, 2011 [facility] [address] [id number] [address] [place] [address], [place] [address] 30 Jun, 2011 [facility] [address] [id number] [address] [place] [address], [place] [address] 05 Jun, 2011 [facility] [address] [id number] [address] [place] [address], [place] [address] Jun, [facility] [address] [id number] [address] [place] [address], [place] [address] Jun, [facility] [address] [id number] [address] [place] [address], [place] [address] Jun, [facility] [address] [id number] [address] [place] [address], [place] [address] May, [facility] [address] [id number] [address] [place] [address], [place] [address] May, [facility] [address] [id number] [address] [place] [address], [place] [address] May, [facility] [address] [id number] [address] [place] [address], [place] [address] May, [facility] [address] [id number] [address] [place] [address], [place] [address] May, [facility] [address] [id number] [address] [place] [address], [place] [address] May, [facility] [address] [id number] [address] [place] [address], [place] [address] 05 May, 2011 [facility] [address] [id number] [address] [place] [address], [place] [address] 15 Apr, 2011 [facility] [address] [id number] [address] [place] [address], [place] [address] 15 Apr, 2011 [facility] [address] [id number] [address] [place] [address], [place] [address] 07 Apr, 2011 [facility] [address] [id number] [address] [place] [address], [place] [address] 07 Apr, 2011 [facility] [address] [id number] [address] [place] [address], [place] [address] 04 Apr, 2011 [facility] [address] [id number] [address] [place] [address], [place] [address] Apr, [facility] [address] [id number] [address] [place] [address], [place] [address] Mar, [facility] [address] [id number] [address] [place] [address], [place] [address] Mar, [facility] [address] [id number] [address] [place] [address], [place] [address] Mar, [facility] [address] [id number] [address] [place] [address], [place] [address] Mar, [facility] [address] [id number] [address] [place] [address], [place] [address] Jan, [facility] [address] [id number] [address] [place] [address], [place] [address] Dec, [facility] [address] [id number] [address] [place] [address], [place] [address] Dec, [facility] [address] [id number] [address] [place] [address], [place] [address] October, [facility] [facility] [address] [id number] [address] [place] [address], [place] [address] Sep, [facility] [address] [id number] [address] [place] [address], [place] [address] Sep, [facility] [address] [id number] [address] [place] [address], [place] [address] Jul, [facility] [address] [id number] [address] [place] [address], [place] [address] Jul, [facility] [address] [id number] [address] [place] [address], [place] [address] May, [facility] [address] [id number] [address] [place] [address], [place] [address] May, [facility] [address] [id number] [address] [place] [address], [place] [address] May, [facility] [address] [id number] [address] [place] [address], [place] [address] 06 May, 2010 [facility] [address] [id number] [address] [place] [address], [place] [address] Apr, [facility] [address] [id number] [address] [place] [address], [place] [address] Apr, [facility] [address] [id number] [address] [place] [address], [place] [address] Apr, [facility] [address] [id number] [address] [place] [address], [place] [address] Apr, [facility] [address] [id number] [address] [place] [address], [place] [address] Apr, [facility] [address] [id number] [address] [place] [address], [place] [address] Mar, [facility] [address] [id number] [address] [place] [address], [place] [address] 14 Mar, 2010 [facility] [address] [id number] [address] [place] [address], [place] [address] 13 Mar, 2010 [facility] [address] [id number] [address] [place] [address] 12 Mar, 2010 [facility] [address] [id number] [address] [place] [address], [place] [address] Jan, [facility] [address] [id number] [address] [place] [id number] 15 Dec, 2009 [facility] [address] [id number] [address] [place] [address], [place] [address] 10 Sep, 2009 [facility] [address] [id number] [address] [place] [address], [place] [address] 08 May, 2009 [facility] [address] [id number] [address] [place] [address], [place] [address] 06 May, 2009 [facility] [address] [id number] [address] [place] [id number] May, [facility] [place] [address] [facility] [id number] [address] [place] [phone] Apr, [facility] [place] [address] [facility] [id number] [address] [place] [id number] Apr, [facility] [place] [address] [facility] [id number] [address] [place] [address] Apr, [facility] [place] [address] [facility] [id number] [address] [place] [address] Apr, [facility] [place] [address] [facility] [id number] [address] [place] [id number] Apr, [facility] [place] [address] [facility] [id number] [address] [place] [address] Mar, [facility] [place] [address] [facility] [id number] [address] [place] [id number] Mar, [facility] [place] [address] [facility] [id number] [address] [place] [id number] Jul, IMMUNIZATIONS No Known Immunizations SOCIAL HISTORY [...] nephrectomy/ Left Kidney 03/[address] Romna-drained fluid and tissue removal from where she had her hernia placed-had a drain placed 01/2018 Surgical History had drain removed from surgery the Aug[facility] t before. 03/2018 Surgical History mesh removed and replaced 10/2018 Hospitalization History Cellulitis[facility] Hospitalization History [facility]- Abd pain 03/07/2017 Hospitalization History [facility]- Abd pain 03/14/2017 [facility]ization History [facility]- No bowel movement, rash 04/13/2017 Hospitalization History [facility]- Abd pain r/ t kidney surgery on 04/10/17 04/17/2017 Hospitalization History [facility]- Abd pain r/ t kidney surgery on 04/10/17 04/18/2017 Hospitalization History [facility]- Lower abd pain 04/17 Hospitalization History [facility]- Cannot urinate 05/17 Hospitalization History [facility]- Pancreatitis Sx Hospitalization History [facility]- Stomach pain 2017 Hospitalization History [facility]- Left side pain 07/19 Hospitalization History [facility]- Incision site infec tion 08/30/2017 Hospitalization History [facility]- Post Op Serom a/Hematoma Left Abdomen. Discharged 09/04/17- Dr Daniel 09/02/2017 Hospitalization History [facility]- Right shoulder and back pain 10/22/2017 Hospitalization History [facility]- Shoulder/Back pain 11/11/2017 Hospitalization History [facility]- Right shoulder blad e pain 12/04/2017 Hospitalization History [facility]- C-Diff 12/13/2017 Hospitalization History C diff et MRSA 12/27/2017 Hospitalization History [facility] Bowel Obstruction 10/2018 Hospitalization History [facility]- Abdominal pain and nausea 01/08/2019
--- OUTSIDE RECORDS SUMMARY | 2020-01-21 18:09 | XMS REPORT ---
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 Polydipsia R63.1 and Malaise R53.81 [facility] [address] [address] May, Other viral agents as the ca use of diseases classified elsewhere B97.89 and Acute upper respiratory infection, unspecified J06.9 [facility] [address] Mar, Nausea R11.0 [facility] [address] [address] Dec, Hives L50.9 [place] [address] [address] 14 Dec, 2015 [facility] [address] [address] 10 Dec, 2015 Cutaneous abscess of limb, u nspecified L02.419 ; Cellulitis of unspecified part of limb L03.119 ; Encounter for incision and drainage procedure Z01.89 and Encounter for recheck of abscess following i ncision and drainage Z09 [facility] [address] [id number] [address] [place] [address] 09 Dec, 2015 Abscess of leg, right L02.41 [address] [place] [address] [id number] [address] [place] [address] 08 Dec, 2016 Cellulitis of unspecified pa rt of limb L03.119 and Cutaneous abscess of limb, unspecified L02.419 [place] [address] [id number] [address] [place] [address] Dec, [place] [address] [id number] [address] [place] [address] Dec, [facility] [address] [id number] [address] [place] [address] Aug, [place] [address] [id number] [address] [place] [address] 04 Aug, 2015 [facility] [place] [address] [id number] [address] [place] [address] 04 Jul, 2015 Pain in unspecified wrist M2 5.539 and Back pain, thoracic M54.6 [facility] [place] [address] [id number] [address] [place] [address] 13 Jun, 2016 Strain of right wrist, initi al encounter S66.911A [place] [address] [id number] [address] [place] [address] 11 Jun, 2016 Chronic pancreatitis, unspec ified pancreatitis type K86.1 ; Hirsuties L68.0 ; Morbid (severe) obesity due to excess calories E66.01 ; Chronic pancreatitis K86.1 and Asthma J45.909 [place] [address] [id number] [address] [place] [address] 14 May, 2015 [place] [address] [place] [id number] [address] [place] [address] May, Hyperlipidemia, mixed E78.2 and Muscle spasm of back M62.830 [facility] [address] [place] [id number] [address] [place] [address] Apr, [facility] [address] [place] [id number] [address] [place] [address] Apr, Torticollis M43.6 [facility] [address] [place] [id number] [place] [address] Apr, Right-sided thoracic back pa in M54.6 [facility] [address] [address] Mar, Rash R21 [facility] [address] [place] [id number] [place] [address] Mar, [facility] [address] [place] [id number] [place] [address] Jan, [facility] [address] [place] [id number] [address] [place] [address] Dec, [facility] [address] [address] Dec, Urinary frequency 788.41 and Nocturia more than twice per night 788.43 [facility] [address] [place] [id number] [address] [place] [address] Nov, [facility] [address] [place] [id number] [place] [address] Nov, [facility] [address] [place] [id number] [address] [place] [address] Nov, Abdominal pain 789.00 [facility] [address] [place] [id number] [address] [place] [address] October, TDAP DX V06.1 [facility] [address] [place] [id number] [address] [place] [address] October, [facility] [address] [id number] [address] [place] [address] October, Disturbance of skin sensatio n 782.0 ; Wrist pain, right 719.43 ; Hyperlipidemia 272.4 and Skin lesion of face 709.9 [facility] [address] [id number] [address] [place] [address] Sep, [facility] [address] [id number] [address] [place] [address] Sep, [facility] [address] [id number] [address] [place] [address] Aug, [facility] [address] [id number] [address] [place] [address] Aug, [facility] [address] [id number] [address] [place] [address] Aug, [facility] [address] [id number] [address] [place] [address] Aug, [facility] [address] [id number] [address] [place] [address] Aug, [facility] [address] [id number] [address] [place] [id number] 16 Aug, 2014 [facility] [address] [id number] [address] [place] [address] Aug, [facility] [address] [id number] [address] [place] [address] Aug, [facility] [address] [id number] [address] [place] [address] Aug, [facility] [address] [id number] [address] [place] [address] Aug, [facility] [address] [id number] [address] [place] [address] Aug, [facility] [address] [id number] [address] [place] [address], [place] [address] Aug, [facility] [address] [id number] [address] [place] [address], [place] [address] Aug, [facility] [address] [id number] [address] [place] [address], [place] [address] Aug, [facility] [address] [id number] [address] [place] [address], [place] [address] Jul, 2014 [facility] [address] [id number] [address] [place] [address], [place] [address] Jul, 2014 [facility] [address] [id number] [address] [place] [address], [place] [address] Jul, [facility] [address] [id number] [address] [place] [address], [place] [address] Jul, [facility] [address] [id number] [address] [place] [address], [place] [address] Jul, [facility] [address] [id number] [address] [place] [address], [place] [address] Jul, [facility] [address] [id number] [address] [place] [address], [place] [address] Jun, [facility] [address] [id number] [address] [place] [address], [place] [address] Jun, [facility] [address] [id number] [address] [place] [address], [place] [address] Jun, [facility] [address] [id number] [address] [place] [address], [place] [address] Jun, [facility] [address] [id number] [address] [place] [address], [place] [address] Jun, [facility] [address] [id number] [address] [place] [address], [place] [address] Jun, [facility] [address] [id number] [address] [place] [address], [place] [address] Jun, [facility] [address] [id number] [address] [place] [address], [place] [address] 15 Jun, 2014 [facility] [address] [id number] [address] [place] [address], [place] [address] May, [facility] [address] [id number] [address] [place] [address], [place] [address] May, [facility] [address] [id number] [address] [place] [address], [place] [address] May, [facility] [address] [id number] [address] [place] [address], [place] [address] May, [facility] [address] [id number] [address] [place] [address], [place] [address] May, [facility] [address] [id number] [address] [place] [address], [place] [address] May, [facility] [address] [id number] [address] [place] [address], [place] [address] May, [facility] [address] [id number] [address] [place] [address], [place] [address] May, [facility] [address] [id number] [address] [place] [address], [place] [address] May, [facility] [address] [id number] [address] [place] [address], [place] [address] May, [facility] [address] [id number] [address] [place] [address], [place] [address] May, [facility] [address] [id number] [address] [place] [address], [place] [address] May, [facility] [address] [id number] [address] [place] [address], [place] [address] Apr, [facility] [address] [id number] [address] [place] [address], [place] [address] Apr, [facility] [address] [id number] [address] [place] [address], [place] [address] Apr, [facility] [address] [id number] [address] [place] [address], [place] [address] Apr, [facility] [address] [id number] [address] [place] [address], [place] [address] Apr, [facility] [address] [id number] [address] [place] [address], [place] [address] Apr, [facility] [address] [id number] [address] [place] [address], [place] [address] Apr, [facility] [address] [id number] [address] [place] [address], [place] [address] Apr, [facility] [address] [id number] [address] [place] [address], [place] [address] Apr, [facility] [address] [id number] [address] [place] [address], [place] [address] Apr, [facility] [address] [id number] [address] [place] [address], [place] [address] Apr, [facility] [address] [id number] [address] [place] [address], [place] [address] Apr, [facility] [address] [id number] [address] [place] [address], [place] [address] Mar, [facility] [address] [id number] [address] [place] [address], [place] [address] Mar, [facility] [address] [id number] [address] [place] [address], [place] [address] Mar, [facility] [address] [id number] [address] [place] [address], [place] [address] Mar, [facility] [address] [id number] [address] [place] [address], [place] [address] Feb, [facility] [address] [id number] [address] [place] [address], [place] [address] Feb, [facility] [address] [id number] [facility] [place] [address] Feb, 2013 [facility] [address] [id number] [facility] [place] [address] Feb, 2013 [facility] [address] [id number] [facility] [place] [address] Feb, 2013 [facility] [address] [id number] [address] [place] [address], [place] [address] Feb, 2013 [facility] [address] [id number] [address] [place] [address], [place] [address] Jan, [facility] [address] [id number] [address] [place] [address], [place] [address] Jan, [facility] [address] [id number] [address] [place] [address], [place] [address] Jan, [facility] [address] [id number] [address] [place] [address], [place] [address] Jan, [facility] [address] [id number] [address] [place] [address], [place] [address] Jan, [facility] [address] [id number] [address] [place] [address], [place] [address] Jan, [facility] [address] [id number] [address] [place] [address], [place] [address] Jan, [facility] [address] [id number] [address] [place] [address], [place] [address] Jan, [facility] [address] [id number] [address] [place] [address], [place] [address] Jan, [facility] [address] [id number] [address] [place] [address], [place] [address] Jan, [facility] [address] [id number] [address] [place] [address], [place] [address] Jan, [facility] [address] [id number] [address] [place] [address], [place] [address] Jan, [facility] [address] [id number] [facility] [place] [address] Jan, [facility] [address] [id number] [address] [place] [address], [place] [address] Jan, [facility] [address] [id number] [address] [place] [address], [place] [address] Dec, [facility] [address] [id number] [address] [place] [address], [place] [address] Dec, [facility] [address] [id number] [address] [place] [address], [place] [address] Dec, [facility] [address] [id number] [address] [place] [address], [place] [address] Dec, [facility] [address] [id number] [address] [place] [address], [place] [address] Nov, [facility] [address] [id number] [address] [place] [address], [place] [address] Nov, [facility] [address] [id number] [address] [place] [address], [place] [address] Nov, [facility] [address] [id number] [address] [place] [address], [place] [address] Nov, [facility] [address] [id number] [address] [place] [address], [place] [address] Nov, [facility] [address] [id number] [address] [place] [address], [place] [address] October, [facility] [address] [id number] [address] [place] [address], [place] [address] October, [facility] [address] [id number] [address] [place] [address], [place] [address] October, [facility] [address] [id number] [address] [place] [address], [place] [address] October, [facility] [address] [id number] [address] [place] [address], [place] [address] 15 Oct, 2013 [facility] [facility] [address] [id number] [address] [place] [address], [place] [address] October, [facility] [address] [id number] [address] [place] [address], [place] [address] October, [facility] [address] [id number] [address] [place] [address], [place] [address] October, [facility] [address] [id number] [address] [place] [address], [place] [address] October, [facility] [address] [id number] [address] [place] [address], [place] [address] October, [facility] [address] [id number] [address] [place] [address], [place] [address] October, [facility] [address] [id number] [address] [place] [address], [place] [address] October, [facility] [address] [id number] [address] [place] [address], [place] [address] October, [facility] [address] [id number] [address] [place] [address], [place] [address] October, [facility] [address] [id number] [address] [place] [address], [place] [address] Sep, [facility] [address] [id number] [address] [place] [address], [place] [address] Sep, [facility] [address] [id number] [address] [place] [address], [place] [address] Sep, [facility] [address] [id number] [address] [place] [address], [place] [address] Sep, [facility] [address] [id number] [address] [place] [address], [place] [address] Sep, [facility] [address] [id number] [address] [place] [address], [place] [address] Sep, [facility] [address] [id number] [address] [place] [address], [place] [address] Sep, [facility] [address] [id number] [address] [place] [address], [place] [address] Sep, [facility] [address] [id number] [address] [place] [address], [place] [address] Sep, [facility] [address] [id number] [address] [place] [address], [place] [address] Sep, [facility] [address] [id number] [address] [place] [address], [place] [address] Sep, [facility] [address] [id number] [address] [place] [address], [place] [address] Sep, [facility] [address] [id number] [address] [place] [address], [place] [address] Sep, [facility] [address] [id number] [address] [place] [address], [place] [address] Sep, [facility] [address] [id number] [address] [place] [address], [place] [address] Sep, [facility] [address] [id number] [address] [place] [address], [place] [address] Aug, [facility] [address] [id number] [address] [place] [address], [place] [address] Aug, [facility] [address] [id number] [address] [place] [address], [place] [address] Aug, [facility] [address] [id number] [address] [place] [address], [place] [address] Aug, [facility] [address] [id number] [address] [place] [address], [place] [address] Jul, [facility] [address] [id number] [address] [place] [address], [place] [address] Jul, [facility] [address] [id number] [address] [place] [address] 06 Jul, 2013 [facility] [address] [id number] [address] [place] [address], [place] [address] 03 Jul, 2013 [facility] [address] [id number] [address] [place] [address], [place] [address] Jun, [facility] [address] [id number] [address] [place] [address], [place] [address] Jun, [facility] [address] [id number] [address] [place] [address], [place] [address] Jun, [facility] [address] [id number] [address] [place] [address], [place] [address] Jun, [facility] [address] [id number] [address] [place] [address], [place] [address] Jun, [facility] [address] [id number] [address] [place] [address], [place] [address] Jun, [facility] [address] [id number] [address] [place] [address], [place] [address] Jun, [facility] [address] [id number] [address] [place] [address], [place] [address] Jun, [facility] [address] [id number] [address] [place] [address], [place] [address] May, [facility] [address] [id number] [address] [place] [address], [place] [address] May, [facility] [address] [id number] [address] [place] [address], [place] [address] May, [facility] [address] [id number] [address] [place] [address], [place] [address] May, [facility] [address] [id number] [address] [place] [address], [place] [address] 17 May, 2013 [facility] [address] [id number] [address] [place] [id number] May, [facility] [address] [id number] [address] [place] [address], [place] [address] 17 May, 2013 [facility] [address] [id number] [address] [place] [address], [place] [address] 17 May, 2013 [facility] [address] [id number] [address] [place] [address], [place] [address] 16 May, 2013 [facility] [address] [id number] [address] [place] [address], [place] [address] 16 May, 2013 [facility] [address] [id number] [address] [place] [address], [place] [address] 14 May, 2013 [facility] [address] [id number] [address] [place] [address], [place] [address] 14 May, 2013 [facility] [address] [id number] [address] [place] [address], [place] [address] 13 May, 2013 [facility] [address] [id number] [address] [place] [address], [place] [address] 13 May, 2013 [facility] [address] [id number] [address] [place] [address], [place] [address] 12 May, 2013 [facility] [address] [id number] [address] [place] [address], [place] [address] 12 May, 2013 [facility] [address] [id number] [address] [place] [address], [place] [address] 11 May, 2013 [facility] [address] [id number] [address] [place] [address], [place] [address] 11 May, 2013 [facility] [address] [id number] [address] [place] [address], [place] [address] Apr, [facility] [address] [id number] [address] [place] [address], [place] [address] Apr, [facility] [address] [id number] [address] [place] [address], [place] [address] Apr, [facility] [address] [id number] [address] [place] [address], [place] [address] Apr, [facility] [address] [id number] [address] [place] [address], [place] [address] Aug, [facility] [address] [id number] [address] [place] [address], [place] [address] Aug, [facility] [address] [id number] [address] [place] [address], [place] [address] Aug, [facility] [address] [id number] [address] [place] [address], [place] [address] 05 Aug, 2012 [facility] [address] [id number] [address] [place] [address], [place] [address] Jul, [facility] [address] [id number] [address] [place] [address], [place] [address] Jun, [facility] [address] [id number] [address] [place] [address], [place] [address] Jun, [facility] [address] [id number] [address] [place] [address], [place] [address] Jun, [facility] [address] [id number] [address] [place] [address], [place] [address] Jun, [facility] [address] [id number] [address] [place] [address], [place] [address] May, [facility] [address] [id number] [address] [place] [address], [place] [address] 05 May, 2012 [facility] [address] [id number] [address] [place] [address], [place] [address] 05 May, 2012 [facility] [address] [id number] [address] [place] [address], [place] [address] May, [facility] [address] [id number] [address] [place] [address], [place] [address] May, [facility] [address] [id number] [address] [place] [address], [place] [address] May, [facility] [address] [id number] [address] [place] [address], [place] [address] May, [facility] [address] [id number] [address] [place] [address], [place] [address] Apr, [facility] [address] [id number] [address] [place] [address], [place] [address] Apr, [facility] [address] [id number] [address] [place] [address], [place] [address] Apr, [facility] [address] [id number] [address] [place] [address], [place] [address] Apr, [facility] [address] [id number] [address] [place] [address], [place] [address] Apr, [facility] [address] [id number] [address] [place] [address], [place] [address] Apr, [facility] [address] [id number] [address] [place] [address], [place] [address] Apr, [facility] [address] [id number] [address] [place] [address], [place] [address] Mar, [facility] [address] [id number] [address] [place] [address], [place] [address] Mar, [facility] [address] [id number] [address] [place] [address] Mar, [facility] [address] [id number] [address] [place] [address], [place] [address] Mar, [facility] [address] [id number] [address] [place] [address] Mar, [facility] [address] [id number] [address] [place] [address], [place] [address] Mar, [facility] [address] [id number] [address] [place] [address] Mar, [facility] [address] [id number] [address] [place] [address] Mar, [facility] [address] [id number] [address] [place] [address], [place] [address] Mar, [facility] [address] [id number] [address] [place] [address], [place] [address] Mar, [facility] [address] [id number] [address] [place] [address], [place] [address] Mar, [facility] [address] [id number] [address] [place] [address], [place] [address] Mar, [facility] [address] [id number] [address] [place] [address], [place] [address] Feb, [facility] [address] [id number] [address] [place] [address], [place] [address] Jan, [facility] [address] [id number] [address] [place] [address], [place] [address] Jan, [facility] [address] [id number] [address] [place] [address], [place] [address] Jan, [facility] [address] [id number] [address] [place] [address], [place] [address] Jan, [facility] [address] [id number] [address] [place] [address], [place] [address] Jan, [facility] [address] [id number] [address] [place] [address], [place] [address] Dec, [facility] [address] [id number] [address] [place] [address], [place] [address] Dec, [facility] [address] [id number] [address] [place] [address], [place] [address] Nov, [facility] [address] [id number] [address] [place] [address], [place] [address] Nov, [facility] [address] [id number] [address] [place] [address], [place] [address] Nov, [facility] [address] [id number] [address] [place] [address], [place] [address] October, [facility] [address] [id number] [address] [place] [address], [place] [address] October, [facility] [address] [id number] [address] [place] [address], [place] [address] October, [facility] [address] [id number] [address] [place] [address], [place] [address] October, [facility] [address] [id number] [address] [place] [address], [place] [address] October, [facility] [address] [id number] [address] [place] [address], [place] [address] October, [facility] [address] [id number] [address] [place] [address], [place] [address] October, [facility] [address] [id number] [address] [place] [address], [place] [address] Sep, [facility] [address] [id number] [address] [place] [address], [place] [address] Sep, [facility] [address] [id number] [address] [place] [address], [place] [address] Sep, [facility] [address] [id number] [address] [place] [address], [place] [address] 25 Sep, 2011 [facility] [address] [id number] [address] [place] [address], [place] [address] 24 Sep, 2011 [facility] [address] [id number] [address] [place] [address], [place] [address] 19 Sep, 2011 [facility] [address] [id number] [address] [place] [address], [place] [address] 17 Sep, 2011 [facility] [address] [id number] [address] [place] [address], [place] [address] 16 Sep, 2011 [facility] [address] [id number] [address] [place] [address], [place] [address] 16 Sep, 2011 [facility] [address] [id number] [address] [place] [address], [place] [address] 14 Sep, 2011 [facility] [address] [id number] [address] [place] [address], [place] [address] 13 Sep, 2011 [facility] [address] [id number] [address] [place] [address], [place] [address] 10 Sep, 2011 [facility] [address] [id number] [address] [place] [address], [place] [address] 09 Sep, 2011 [facility] [address] [id number] [address] [place] [address], [place] [address] 27 Aug, 2011 [facility] [address] [id number] [address] [place] [address], [place] [address] 12 Aug, 2011 [facility] [address] [id number] [address] [place] [address], [place] [address] 08 Aug, 2011 [facility] [address] [id number] [address] [place] [address], [place] [address] 06 Aug, 2011 [facility] [address] [id number] [address] [place] [address], [place] [address] 28 Jul, 2011 [facility] [address] [id number] [address] [place] [address], [place] [address] 22 Jul, 2011 [facility] [address] [id number] [address] [place] [address], [place] [address] 16 Jul, 2011 [facility] [address] [id number] [address] [place] [address], [place] [address] 15 Jul, 2011 [facility] [address] [id number] [address] [place] [address], [place] [address] 14 Jul, 2011 [facility] [address] [id number] [address] [place] [address], [place] [address] 10 Jul, 2011 [facility] [address] [id number] [address] [place] [address], [place] [address] 30 Jun, 2011 [facility] [address] [id number] [address] [place] [address], [place] [address] 05 Jun, 2011 [facility] [address] [id number] [address] [place] [address], [place] [address] Jun, [facility] [address] [id number] [address] [place] [address], [place] [address] Jun, [facility] [address] [id number] [address] [place] [address], [place] [address] Jun, [facility] [address] [id number] [address] [place] [address], [place] [address] May, [facility] [address] [id number] [address] [place] [address], [place] [address] May, [facility] [address] [id number] [address] [place] [address], [place] [address] May, [facility] [address] [id number] [address] [place] [address], [place] [address] May, [facility] [address] [id number] [address] [place] [address], [place] [address] May, [facility] [address] [id number] [address] [place] [address], [place] [address] May, [facility] [address] [id number] [address] [place] [address], [place] [address] 05 May, 2011 [facility] [address] [id number] [address] [place] [address], [place] [address] 15 Apr, 2011 [facility] [address] [id number] [address] [place] [address], [place] [address] 15 Apr, 2011 [facility] [address] [id number] [address] [place] [address], [place] [address] 07 Apr, 2011 [facility] [address] [id number] [address] [place] [address], [place] [address] 07 Apr, 2011 [facility] [address] [id number] [address] [place] [address], [place] [address] 04 Apr, 2011 [facility] [address] [id number] [address] [place] [address], [place] [address] Apr, [facility] [address] [id number] [address] [place] [address], [place] [address] Mar, [facility] [address] [id number] [address] [place] [address], [place] [address] Mar, [facility] [address] [id number] [address] [place] [address], [place] [address] Mar, [facility] [address] [id number] [address] [place] [address], [place] [address] Mar, [facility] [address] [id number] [address] [place] [address], [place] [address] Jan, [facility] [address] [id number] [address] [place] [address], [place] [address] Dec, [facility] [address] [id number] [address] [place] [address], [place] [address] Dec, [facility] [address] [id number] [address] [place] [address], [place] [address] October, [facility] [address] [id number] [address] [place] [address], [place] [address] Sep, [facility] [address] [id number] [address] [place] [address], [place] [address] Sep, [facility] [address] [id number] [address] [place] [address], [place] [address] Jul, [facility] [address] [id number] [address] [place] [address], [place] [address] Jul, [facility] [address] [id number] [address] [place] [address], [place] [address] May, [facility] [address] [id number] [address] [place] [address], [place] [address] May, [facility] [address] [id number] [address] [place] [address], [place] [address] May, [facility] [address] [id number] [address] [place] [address], [place] [address] 06 May, 2010 [facility] [address] [id number] [address] [place] [address], [place] [address] Apr, [facility] [address] [id number] [address] [place] [address], [place] [address] Apr, [facility] [address] [id number] [address] [place] [address], [place] [address] Apr, [facility] [address] [id number] [address] [place] [address], [place] [address] Apr, [facility] [address] [id number] [address] [place] [address], [place] [address] Apr, [facility] [address] [id number] [address] [place] [address], [place] [address] Mar, [facility] [address] [id number] [address] [place] [address], [place] [address] 14 Mar, 2010 [facility] [address] [id number] [address] [place] [address], [place] [address] 13 Mar, 2010 [facility] [address] [id number] [address] [place] [id number] 12 Mar, 2010 [facility] [address] [id number] [address] [place] [address], [place] [address] Jan, [facility] [address] [id number] [address] [place] [id number] 15 Dec, 2009 [facility] [address] [id number] [address] [place] [address], [place] [address] 10 Sep, 2009 [facility] [address] [id number] [address] [place] [address], [place] [address] 08 May, 2009 [facility] [address] [id number] [address] [place] [address], [place] [address] 06 May, 2009 [facility] [address] [id number] [address] [place] [id number] May, [facility] [address] [facility] [id number] [address] [place] [id number] Apr, [facility] [address] [facility] [id number] [address] [place] [phone] Apr, [facility] [address] [facility] [id number] [address] [place] [id number] Apr, [facility] [address] [facility] [id number] [address] [place] [address] Apr, [facility] [address] [facility] [id number] [address] [place] [phone] Apr, [facility] [address] [facility] [id number] [address] [place] [address] Mar, [facility] [address] [facility] [id number] [address] [place] [address] Mar, [facility] [address] [facility] [id number] [address] [place] [address] Jul, IMMUNIZATIONS No Known Immunizations SOCIAL HISTORY [...] removed and replaced 10/2018 Hospitalization History Cellulitis-[facility]ia [facility] Hospitalization History [facility] [place]- Abd pain 03/07/2017 Hospitalization History [facility] [place]- Abd pain 03/14/2017 Hospitalization History [facility] [place]- No bowel movement, rash 04/13/2017 Hospitalization History [facility] [place]- Abd pain r/ t kidney surgery on 04/10/17 04/17/2017 Hospitalization History [facility] [place]- Abd pain r/ t kidney surgery on 04/10/17 04/18/2017 Hospitalization History [facility] [place]- Lower abd pain 04/17 Hospitalization History [facility] [place]- Cannot urinate 05/17 Hospitalization History ED [facility]- Pancreatitis Sx Hospitalization History [facility]- Stomach pain 2017 Hospitalization History [facility]- Left side pain 07/19 Hospitalization History [facility]- Incision site infec tion 08/30/2017 Hospitalization History [facility]- Post Op Serom a/Hematoma Left Abdomen. Discharged 09/04/17- Dr Daniel 09/02/2017 Hospitalization History [facility] [place]- Right shoulder and back pain 10/22/2017 Hospitalization History [facility]- Shoulder/Back pain 11/11/2017 Hospitalization History [facility]- Right shoulder blad e pain 12/04/2017 Hospitalization History [facility]- C-Diff 12/13/2017 Hospitalization History C diff et MRSA 12/27/2017 Hospitalization History [facility] Bowel Obstruction 10/2018 Hospitalization History [facility] [place]- Abdominal pain and nausea 01/08/2019
--- OUTSIDE RECORDS SUMMARY | 2020-01-21 18:10 | XMS REPORT ---
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 leg, right L02.41 5 [place] [address] [facility] [id number] [address] [place] [address] 08 Dec, 2015 Cellulitis of unspecified pa rt of limb L03.119 and Cutaneous abscess of limb, unspecified L02.419 [place] [address] [place] [id number] [address] [place] [address] Dec, [place] [address] [place] [id number] [address] [place] [address] Dec, [facility] [place] [address] [place] [id number] [place] [address] Aug, [place] [address] [place] [id number] [place] [address] Aug, [facility] IN [place] [address] [address] Jul, Pain in unspecified wrist M2 5.539 and Back pain, thoracic M54.6 [facility] [place] [address] [place] [id number] [address] [place] [address] Jun, Strain of right wrist, initi al encounter S66.911A [place] [address] [place] [id number] [address] [place] [address] Jun, Chronic pancreatitis, unspec ified pancreatitis type K86.1 ; Hirsuties L68.0 ; Morbid (severe) obesity due to excess calories E66.01 ; Chronic pancreatitis K86.1 and Asthma J45.909 [place] [address] [facility] [id number] [address] [place] [address] May, [place] [address] [place] [id number] [place] [address] May, Hyperlipidemia, mixed E78.2 and Muscle spasm of back M62.830 [place] [address] [place] [id number] [address] [place] [address] Apr, [facility] [address] [id number] [address] [place] [address] Apr, Torticollis M43.6 [facility] [address] [id number] [address] [place] [address] Apr, Right-sided thoracic back pa in M54.6 [facility] [address] [facility] [id number] [address] [place] [address] Mar, Rash R21 [facility] [address] [facility] [id number] [address] [place] [address] Mar, [facility] [address] [facility] [id number] [address] [place] [address] Jan, [facility] [address] [facility] [id number] [address] [place] [address] Dec, [facility] [address] [place] [id number] [address] [place] [address] Dec, Urinary frequency 788.41 and Nocturia more than twice per night 788.43 [facility] [address] [place] [id number] [address] [place] [address] Nov, [facility] [address] [facility] [id number] [address] [place] [address] Nov, [facility] [address] [place] [id number] [address] [place] [address] Nov, Abdominal pain 789.00 [facility] [address] [facility] [id number] [address] [place] [address] October, TDAP DX V06.1 [facility] [address] [place] [id number] [address] [place] [address] October, [facility] [address] [facility] [id number] [address] [place] [address] October, Disturbance of skin sensatio n 782.0 ; Wrist pain, right 719.43 ; Hyperlipidemia 272.4 and Skin lesion of face 709.9 [facility] [address] [id number] [address] [place] [address], [place] [address] 14 Sep, 2014 [facility] [address] [id number] [address] [place] [address], [place] [address] 13 Sep, 2014 [facility] [address] [id number] [address] [place] [address], [place] [address] 26 Aug, 2014 [facility] [address] [id number] [address] [place] [address], [place] [address] 26 Aug, 2014 [facility] [address] [id number] [address] [place] [address], [place] [address] 23 Aug, 2014 [facility] [address] [id number] [address] [place] [address], [place] [address] 23 Aug, 2014 [facility] [address] [id number] [address] [place] [address], [place] [address] 16 Aug, 2014 [facility] [address] [id number] [address] [place] [address], [place] [address] 16 Aug, 2014 [facility] [address] [id number] [address] [place] [address], [place] [address] 14 Aug, 2014 [facility] [address] [id number] [address] [place] [address], [place] [address] 14 Aug, 2014 [facility] [address] [id number] [address] [place] [address], [place] [address] 11 Aug, 2014 [facility] [address] [id number] [address] [place] [address] 11 Aug, 2014 [facility] [address] [id number] [address] [place] [address], [place] [address] 04 Aug, 2014 [facility] [address] [id number] [address] [place] [address], [place] [address] 04 Aug, 2014 [facility] [address] [id number] [address] [place] [address], [place] [address] 03 Aug, 2014 [facility] [address] [id number] [address] [place] [address], [place] [address] Aug, [facility] [address] [id number] [address] [place] [address], [place] [address] Jul, [facility] [address] [id number] [address] [place] [address], [place] [address] Jul, 2014 [facility] [address] [id number] [address] [place] [address], [place] [address] Jul, 2014 [facility] [address] [id number] [address] [place] [address], [place] [address] Jul, 2014 [facility] [address] [id number] [address] [place] [address], [place] [address] Jul, [facility] [address] [id number] [address] [place] [address], [place] [address] Jul, [facility] [address] [id number] [address] [place] [address], [place] [address] Jun, [facility] [address] [id number] [address] [place] [address], [place] [address] Jun, [facility] [address] [id number] [address] [place] [address], [place] [address] Jun, [facility] [address] [id number] [address] [place] [address], [place] [address] Jun, [facility] [address] [id number] [address] [place] [address], [place] [address] Jun, [facility] [address] [id number] [address] [place] [address], [place] [address] Jun, [facility] [address] [id number] [address] [place] [address], [place] [address] Jun, [facility] [address] [id number] [address] [place] [address], [place] [address] Jun, [facility] [address] [id number] [address] [place] [address], [place] [address] May, [facility] [address] [id number] [address] [place] [address], [place] [address] May, [facility] [address] [id number] [address] [place] [address], [place] [address] May, [facility] [address] [id number] [address] [place] [address], [place] [address] May, [facility] [address] [id number] [address] [place] [address], [place] [address] May, [facility] [address] [id number] [address] [place] [address], [place] [address] May, [facility] [address] [id number] [address] [place] [address], [place] [address] May, [facility] [address] [id number] [address] [place] [address], [place] [address] May, [facility] [address] [id number] [address] [place] [address], [place] [address] May, [facility] [address] [id number] [address] [place] [address], [place] [address] May, [facility] [address] [id number] [address] [place] [address], [place] [address] May, [facility] [address] [id number] [address] [place] [address], [place] [address] May, [facility] [address] [id number] [address] [place] [address], [place] [address] Apr, [facility] [address] [id number] [address] [place] [address], [place] [address] Apr, [facility] [address] [id number] [address] [place] [address], [place] [address] Apr, [facility] [address] [id number] [address] [place] [address], [place] [address] Apr, [facility] [address] [id number] [address] [place] [address] Apr, [facility] [address] [id number] [address] [place] [address], [place] [address] Apr, [facility] [address] [id number] [address] [place] [address], [place] [address] Apr, [facility] [address] [id number] [address] [place] [address], [place] [address] Apr, [facility] [address] [id number] [address] [place] [address], [place] [address] Apr, [facility] [address] [id number] [address] [place] [address], [place] [address] Apr, [facility] [address] [id number] [address] [place] [address], [place] [address] Apr, [facility] [address] [id number] [address] [place] [address], [place] [address] Apr, [facility] [address] [id number] [address] [place] [address], [place] [address] Mar, [facility] [address] [id number] [address] [place] [address], [place] [address] Mar, [facility] [address] [id number] [address] [place] [address], [place] [address] Mar, [facility] [address] [id number] [address] [place] [address], [place] [address] Mar, [facility] [address] [id number] [address] [place] [address] 10 Feb, 2014 [facility] [address] [id number] [address] [place] [address], [place] [address] 10 Feb, 2014 [facility] [address] [id number] [address] [place] [address], [place] [address] 05 Feb, 2014 [facility] [address] [id number] [address] [place] [address], [place] [address] 05 Feb, 2014 [facility] [address] [id number] [facility] [place] [address] 05 Feb, 2013 [facility] [address] [id number] [facility] [place] [address] Feb, [facility] [address] [id number] [address] [place] [address] Jan, [facility] [address] [id number] [address] [place] [address] Jan, [facility] [address] [id number] [facility] [place] [address] Jan, [facility] [address] [id number] [address] [place] [address], [place] [address] Jan, [facility] [address] [id number] [address] [place] [address], [place] [address] Jan, [facility] [address] [id number] [address] [place] [address], [place] [address] Jan, [facility] [address] [id number] [address] [place] [address], [place] [address] Jan, [facility] [address] [id number] [address] [place] [address], [place] [address] Jan, [facility] [address] [id number] [address] [place] [address], [place] [address] Jan, [facility] [address] [id number] [address] [place] [address], [place] [address] Jan, [facility] [address] [id number] [address] [place] [address], [place] [address] Jan, [facility] [address] [id number] [address] [place] [address], [place] [address] Jan, [facility] [address] [id number] [address] [place] [address], [place] [address] Jan, [facility] [address] [id number] [address] [place] [address], [place] [address] Jan, [facility] [address] [id number] [address] [place] [address] Dec, [facility] [address] [id number] [address] [place] [address], [place] [address] Dec, [facility] [address] [id number] [address] [place] [address], [place] [address] Dec, [facility] [address] [id number] [address] [place] [address], [place] [address] Dec, [facility] [address] [id number] [address] [place] [address], [place] [address] Nov, [facility] [address] [id number] [address] [place] [address], [place] [address] Nov, [facility] [address] [id number] [address] [place] [address], [place] [address] Nov, [facility] [address] [id number] [address] [place] [address], [place] [address] Nov, [facility] [address] [id number] [address] [place] [address], [place] [address] Nov, [facility] [address] [id number] [address] [place] [address], [place] [address] October, [facility] [address] [id number] [address] [place] [address], [place] [address] October, [facility] [address] [id number] [address] [place] [address], [place] [address] October, [facility] [address] [id number] [address] [place] [address], [place] [address] October, [facility] [address] [id number] [address] [place] [address], [place] [address] October, [facility] [address] [id number] [address] [place] [address], [place] [address] October, [facility] [address] [id number] [address] [place] [address], [place] [address] October, [facility] [address] [id number] [address] [place] [address], [place] [address] October, [facility] [address] [id number] [address] [place] [address], [place] [address] October, [facility] [address] [id number] [address] [place] [address], [place] [address] October, [facility] [address] [id number] [address] [place] [address], [place] [address] October, [facility] [address] [id number] [address] [place] [address] [address] October, [facility] [address] [id number] [address] [place] [address], [place] [address] October, [facility] [address] [id number] [address] [place] [address], [place] [address] October, [facility] [address] [id number] [address] [place] [address], [place] [address] Sep, [facility] [address] [id number] [address] [place] [address], [place] [address] Sep, [facility] [address] [id number] [address] [place] [address], [place] [address] Sep, [facility] [address] [id number] [address] [place] [address], [place] [address] Sep, [facility] [address] [id number] [address] [place] [address], [place] [address] Sep, [facility] [address] [id number] [address] [place] [address], [place] [address] Sep, [facility] [address] [id number] [address] [place] [address], [place] [address] Sep, [facility] [address] [id number] [address] [place] [address], [place] [address] Sep, [facility] [address] [id number] [address] [place] [address], [place] [address] Sep, [facility] [address] [id number] [address] [place] [address], [place] [address] Sep, [facility] [address] [id number] [address] [place] [address], [place] [address] Sep, [facility] [address] [id number] [address] [place] [address], [place] [address] Sep, [facility] [address] [id number] [address] [place] [address], [place] [address] Sep, [facility] [address] [id number] [address] [place] [address], [place] [address] Sep, [facility] [address] [id number] [address] [place] [address], [place] [address] Sep, [facility] [address] [id number] [address] [place] [address], [place] [address] Aug, [facility] [address] [id number] [address] [place] [address], [place] [address] Aug, [facility] [address] [id number] [address] [place] [address], [place] [address] Aug, [facility] [address] [id number] [address] [place] [address], [place] [address] Aug, [facility] [address] [id number] [address] [place] [address], [place] [address] Jul, [facility] [address] [id number] [address] [place] [address], [place] [address] Jul, [facility] [address] [id number] [address] [place] [address], [place] [address] Jul, [facility] [address] [id number] [address] [place] [address], [place] [address] Jul, [facility] [address] [id number] [address] [place] [address], [place] [address] 15 Jun, 2013 [facility] [address] [id number] [address] [place] [address], [place] [address] 15 Jun, 2013 [facility] [address] [id number] [address] [place] [address], [place] [address] 15 Jun, 2013 [facility] [address] [id number] [address] [place] [address], [place] [address] 15 Jun, 2013 [facility] [address] [id number] [address] [place] [address], [place] [address] 10 Jun, 2013 [facility] [address] [id number] [address] [place] [address], [place] [address] Jun, [facility] [address] [id number] [address] [place] [address], [place] [address] 08 Jun, 2013 [facility] [address] [id number] [address] [place] [address], [place] [address] Jun, [facility] [address] [id number] [address] [place] [address], [place] [address] May, [facility] [address] [id number] [address] [place] [address], [place] [address] May, [facility] [address] [id number] [address] [place] [address], [place] [address] 18 May, 2013 [facility] [address] [id number] [address] [place] [address], [place] [address] 18 May, 2013 [facility] [address] [id number] [address] [place] [address], [place] [address] 17 May, 2013 [facility] [address] [id number] [address] [place] [address], [place] [id number] 17 May, 2013 [facility] [address] [id number] [address] [place] [address], [place] [address] 17 May, 2013 [facility] [address] [id number] [address] [place] [address], [place] [address] 17 May, 2013 [facility] [address] [id number] [facility] [place] [address] 16 May, 2013 [facility] [address] [id number] [address] [place] [address], [place] [address] 16 May, 2013 [facility] [address] [id number] [address] [place] [address], [place] [address] 14 May, 2013 [facility] [address] [id number] [address] [place] [address], [place] [address] 14 May, 2013 [facility] [address] [id number] [address] [place] [address], [place] [address] 13 May, 2013 [facility] [address] [id number] [address] [place] [address], [place] [address] 13 May, 2013 [facility] [address] [id number] [address] [place] [address], [place] [address] 12 May, 2013 [facility] [address] [id number] [address] [place] [address], [place] [address] 12 May, 2013 [facility] [address] [id number] [address] [place] [address], [place] [address] 11 May, 2013 [facility] [address] [id number] [address] [place] [address], [place] [address] 11 May, 2013 [facility] [address] [id number] [address] [place] [address], [place] [address] 26 Apr, 2013 [facility] [address] [id number] [address] [place] [address], [place] [address] 26 Apr, 2013 [facility] [address] [id number] [address] [place] [address], [place] [address] Apr, [facility] [address] [id number] [address] [place] [address], [place] [address] Apr, [facility] [address] [id number] [address] [place] [address], [place] [address] 27 Aug, 2012 [facility] [address] [id number] [address] [place] [address], [place] [address] 18 Aug, 2012 [facility] [address] [id number] [address] [place] [address], [place] [address] 06 Aug, 2012 [facility] [address] [id number] [address] [place] [address], [place] [address] 05 Aug, 2012 [facility] [address] [id number] [address] [place] [address], [place] [address] Jul, [facility] [address] [id number] [address] [place] [address], [place] [address] Jun, [facility] [address] [id number] [address] [place] [address], [place] [address] Jun, [facility] [address] [id number] [address] [place] [address], [place] [address] Jun, [facility] [address] [id number] [address] [place] [address], [place] [address] Jun, [facility] [address] [id number] [address] [place] [address], [place] [address] May, [facility] [address] [id number] [address] [place] [address], [place] [address] May, [facility] [address] [id number] [address] [place] [address], [place] [address] May, [facility] [address] [id number] [address] [place] [address], [place] [address] May, [facility] [address] [id number] [address] [place] [address], [place] [address] May, [facility] [address] [id number] [address] [place] [address], [place] [address] May, [facility] [address] [id number] [address] [place] [address], [place] [address] May, [facility] [address] [id number] [address] [place] [address], [place] [address] Apr, [facility] [address] [id number] [address] [place] [address] Apr, [facility] [address] [id number] [address] [place] [address], [place] [address] Apr, [facility] [address] [id number] [address] [place] [address], [place] [address] Apr, [facility] [address] [id number] [address] [place] [address] Apr, [facility] [address] [id number] [address] [place] [address], [place] [address] Apr, [facility] [address] [id number] [address] [place] [address], [place] [address] Apr, [facility] [address] [id number] [address] [place] [address], [place] [address] Mar, [facility] [address] [id number] [address] [place] [address], [place] [address] Mar, [facility] [address] [id number] [address] [place] [address] Mar, [facility] [address] [id number] [address] [place] [address], [place] [address] 19 Mar, 2012 [facility] [address] [id number] [address] [place] [address] Mar, [facility] [address] [id number] [address] [place] [address], [place] [address] 19 Mar, 2012 [facility] [address] [id number] [address] [place] [address] 17 Mar, 2012 [facility] [address] [id number] [address] [place] [address] 17 Mar, 2012 [facility] [address] [id number] [address] [place] [address] 15 Mar, 2012 [facility] [address] [id number] [address] [place] [address] Mar, [facility] [address] [id number] [address] [place] [address], [place] [address] Mar, [facility] [address] [id number] [address] [place] [address], [place] [address] Mar, [facility] [address] [id number] [address] [place] [address], [place] [address] Feb, [facility] [address] [id number] [address] [place] [address], [place] [address] Jan, [facility] [address] [id number] [address] [place] [address], [place] [address] Jan, [facility] [address] [id number] [address] [place] [address], [place] [address] Jan, [facility] [address] [id number] [address] [place] [address], [place] [address] Jan, [facility] [address] [id number] [address] [place] [address], [place] [address] Jan, [facility] [address] [id number] [address] [place] [address], [place] [address] Dec, [facility] [address] [id number] [address] [place] [address], [place] [address] Dec, [facility] [address] [id number] [address] [place] [address], [place] [address] Nov, [facility] [address] [id number] [address] [place] [address], [place] [address] Nov, [facility] [address] [id number] [address] [place] [address], [place] [address] Nov, [facility] [address] [id number] [address] [place] [address], [place] [address] October, [facility] [address] [id number] [address] [place] [address], [place] [address] October, [facility] [address] [id number] [address] [place] [address], [place] [address] October, [facility] [address] [id number] [address] [place] [address], [place] [address] October, [facility] [address] [id number] [address] [place] [address], [place] [address] October, [facility] [address] [id number] [address] [place] [address], [place] [address] October, [facility] [address] [id number] [address] [place] [address], [place] [address] October, [facility] [address] [id number] [address] [place] [address], [place] [address] Sep, [facility] [address] [id number] [address] [place] [address], [place] [address] Sep, [facility] [address] [id number] [address] [place] [address], [place] [address] Sep, [facility] [address] [id number] [address] [place] [address], [place] [address] 25 Sep, 2011 [facility] [address] [id number] [address] [place] [address], [place] [address] 24 Sep, 2011 [facility] [address] [id number] [address] [place] [address], [place] [address] 19 Sep, 2011 [facility] [address] [id number] [address] [place] [address], [place] [address] 17 Sep, 2011 [facility] [address] [id number] [address] [place] [address], [place] [address] 16 Sep, 2011 [facility] [address] [id number] [address] [place] [address], [place] [address] 16 Sep, 2011 [facility] [address] [id number] [address] [place] [address], [place] [address] 14 Sep, 2011 [facility] [address] [id number] [address] [place] [address], [place] [address] 13 Sep, 2011 [facility] [address] [id number] [address] [place] [address], [place] [address] 10 Sep, 2011 [facility] [address] [id number] [address] [place] [address], [place] [address] 09 Sep, 2011 [facility] [address] [id number] [address] [place] [address], [place] [address] 27 Aug, 2011 [facility] [address] [id number] [address] [place] [address], [place] [address] 12 Aug, 2011 [facility] [address] [id number] [address] [place] [address], [place] [address] 08 Aug, 2011 [facility] [address] [id number] [address] [place] [address], [place] [address] 06 Aug, 2011 [facility] [address] [id number] [address] [place] [address], [place] [address] 28 Jul, 2011 [facility] [address] [id number] [address] [place] [address], [place] [address] 22 Jul, 2011 [facility] [address] [id number] [address] [place] [address], [place] [address] 16 Jul, 2011 [facility] [address] [id number] [address] [place] [address], [place] [address] 15 Jul, 2011 [facility] [address] [id number] [address] [place] [address], [place] [address] 14 Jul, 2011 [facility] [address] [id number] [address] [place] [address], [place] [address] 10 Jul, 2011 [facility] [address] [id number] [address] [place] [address], [place] [address] Jun, [facility] [address] [id number] [address] [place] [address], [place] [address] Jun, [facility] [address] [id number] [address] [place] [address], [place] [address] Jun, [facility] [address] [id number] [address] [place] [address], [place] [address] Jun, [facility] [address] [id number] [address] [place] [address], [place] [address] Jun, [facility] [address] [id number] [address] [place] [address], [place] [address] May, [facility] [address] [id number] [address] [place] [address], [place] [address] May, [facility] [address] [id number] [address] [place] [address], [place] [address] May, [facility] [address] [id number] [address] [place] [address], [place] [address] May, [facility] [address] [id number] [address] [place] [address], [place] [address] May, [facility] [address] [id number] [address] [place] [address], [place] [address] May, [facility] [address] [id number] [address] [place] [address], [place] [address] 05 May, 2011 [facility] [address] [id number] [address] [place] [address], [place] [address] 15 Apr, 2011 [facility] [address] [id number] [address] [place] [address], [place] [address] 15 Apr, 2011 [facility] [address] [id number] [address] [place] [address], [place] [address] Apr, [facility] [address] [id number] [address] [place] [address] 07 Apr, 2011 [facility] [address] [id number] [address] [place] [address], [place] [address] Apr, [facility] [address] [id number] [address] [place] [address], [place] [address] Apr, [facility] [address] [id number] [address] [place] [address], [place] [address] Mar, [facility] [address] [id number] [address] [place] [address], [place] [address] 27 Mar, 2011 [facility] [address] [id number] [address] [place] [address], [place] [address] Mar, [facility] [address] [id number] [address] [place] [address], [place] [address] Mar, [facility] [address] [id number] [address] [place] [address], [place] [address] Jan, [facility] [address] [id number] [address] [place] [address], [place] [address] Dec, [facility] [address] [id number] [address] [place] [address], [place] [address] Dec, [facility] [address] [id number] [address] [place] [address], [place] [address] October, [facility] [address] [id number] [address] [place] [address], [place] [address] 20 Sep, 2010 [facility] [address] [id number] [address] [place] [address], [place] [address] 14 Sep, 2010 [facility] [address] [id number] [address] [place] [address], [place] [address] 17 Jul, 2010 [facility] [address] [id number] [address] [place] [address], [place] [address] 16 Jul, 2010 [facility] [address] [id number] [address] [place] [address], [place] [address] May, [facility] [address] [id number] [address] [place] [address], [place] [address] May, [facility] [address] [id number] [address] [place] [address], [place] [address] May, [facility] [address] [id number] [address] [place] [address], [place] [address] 06 May, 2010 [facility] [address] [id number] [address] [place] [address], [place] [address] Apr, [facility] [address] [id number] [address] [place] [address], [place] [address] Apr, [facility] [address] [id number] [address] [place] [address], [place] [address] Apr, [facility] [address] [id number] [address] [place] [address], [place] [address] Apr, [facility] [address] [id number] [address] [place] [address], [place] [address] Apr, [facility] [address] [id number] [address] [place] [address], [place] [address] Mar, [facility] [address] [id number] [address] [place] [address], [place] [address] 14 Mar, 2010 [facility] [address] [id number] [address] [place] [address], [place] [address] 13 Mar, 2010 [facility] [address] [id number] [address] [place] [address] Mar, [facility] [address] [id number] [address] [place] [address], [place] [address] Jan, [facility] [address] [id number] [address] [place] [phone] 15 Dec, 2009 [facility] [address] [id number] [address] [place] [address] Sep, [facility] [address] [id number] [address] [place] [phone] 08 May, 2009 [facility] [address] [id number] [address] [place] [address] May, [facility] [address] [id number] [address] [place] [phone] May, [facility] [address] [id number] [address] [place] [address] 17 Apr, 2009 [facility] [address] [id number] [address] [place] [address] Apr, [facility] [address] [facility] [id number] [address] [place] [phone] Apr, [facility] [address] [facility] [id number] [address] [place] [address] Apr, [facility] [address] [facility] [id number] [address] [place] [id number] Apr, [facility] [address] [facility] [id number] [address] [place] [phone] Mar, [facility] [address] [facility] [id number] [address] [place] [phone] Mar, [facility] [address] [facility] [id number] [address] [place] [id number] Jul, IMMUNIZATIONS No Known Immunizations SOCIAL HISTORY [...] removed and replaced 10/2018 Hospitalization History Cellulitis-[facility] Hospitalization History [facility]- Abd pain 03/07/2017 [facility] History [facility]- Abd pain 03/14/2017 Hospitalization History [facility]- No bowel movement, rash 04/13/2017 [facility]ization History [facility]- Abd pain r/ t kidney surgery on 04/10/17 04/17/2017 Hospitalization History [facility]- Abd pain r/ t kidney surgery on 04/10/17 04/18/2017 Hospitalization History [facility]- Lower abd pain 04/17 Hospitalization History [facility]- Cannot urinate 05/17 Hospitalization History [facility]- Pancreatitis Sx Hospitalization History [facility]- Stomach pain 2017 Hospitalization History [facility]- Left side pain 07/19 Hospitalization History [facility]- Incision site infec tion 08/30/2017 Hospitalization History [facility]- Post Op Serom a/Hematoma Left Abdomen. Discharged 09/04/17- Dr Daniel 09/02/2017 Hospitalization History [facility]- Right shoulder and back pain 10/22/2017 Hospitalization History [facility]- Shoulder/Back pain 11/11/2017 Hospitalization History [facility]- Right shoulder blad e pain 12/04/2017 Hospitalization History [facility]- C-Diff 12/13/2017 Hospitalization History C diff et MRSA 12/27/2017 Hospitalization History [facility] Bowel Obstruction 10/2018 Hospitalization History [facility]- Abdominal pain and nausea 01/08/2019
== END 2020-01-21 16:42 | disposition home or self-care (01) ==
LOC: EDUNIT# 11:58 → ER 11:59
DX: K56.7 Ileus, unspecified (principal); G43.909 Migraine, unspecified, not intractable, without status migrainosus; G89.29 Other chronic pain; M54.9 Dorsalgia, unspecified; F32.9 Major depressive disorder, single episode, unspecified; E66.9 Obesity, unspecified; F17.210 Nicotine dependence, cigarettes, uncomplicated; Z90.49 Acquired absence of other specified parts of digestive tract; Z88.5 Allergy status to narcotic agent; Z87.19 Personal history of other diseases of the digestive system; Z88.0 Allergy status to penicillin; Z85.528 Personal history of other malignant neoplasm of kidney; Z88.1 Allergy status to other antibiotic agents; Z79.52 Long term (current) use of systemic steroids; Z68.42 Body mass index [BMI] 45.0-49.9, adult; Z82.49 Family history of ischemic heart disease and other diseases of the circulatory system
CPT/HCPCS: 36415; 74176; 80053; 81000; 82150; 83690; 83735; 85025; 86141; 96361; 96374; 96375

== ENCOUNTER 2020-02-10 12:19 | Emergency (ER) | payer MEDICARE, MEDICAID ==
[~2020-02-10] VITALS: Ht 160 cm; Wt 117.9 kg
[~2020-02-10 12:19] MED LIST changes: +ONDA8TAB15 PO
[2020-02-10 12:28] VITALS: BP 130/85
--- NOTE | 2020-02-10 12:52 | ED Neck-Back Pain/Injury ---
General Chief Complaint: Head/Cervical Problems Stated Complaint: NECK STIFFNESS Nursing Triage Note: PT AMBULATE TO TRIAGE WITH C/O NECK PAIN X2 WEEKS. PT REPORTS GOING TO PCP X1 WEEK AGO AND GIVEN "MUSCLE RELAXERS" WITH NO RELIEF. PT REPORTS CALLING PCP OFFICE ON SATURDAY AND HAS NOT HEARD BACK YET. PT REPORTS TAKING TYLENOL AND HYDROCODONE FOR THE PAIN WITHOUT RELIEF. Nursing Sepsis Screen: No Definite Risk Source of Information: Patient Exam Limitations: No Limitations History of Present Illness Date Seen by Provider: Feb 10, 2020 Time Seen by Provider: 12:35 Initial Comments Patient presents today with complaints of right neck pain for 2 weeks. States pain started when she woke up, no known injury. Pain starts at approx C3 and down to mid-thoracic spine. Pain increases with neck movement and shoulder movement. Patient points to right trapezius as main area of impact. Location: Paraspinous Muscles Timing/Duration: Constant Severity: Moderate Pain/Injury Location: Back, Neck Modifying Factors: Worse With Movement Allergies and Home Medications Allergies Coded Allergies: fentanyl (Verified Allergy, Unknown, 10/16/18) meperidine (Verified Allergy, Unknown, 10/16/18) penicillin G (Verified Allergy, Unknown, 10/16/18) vancomycin (Verified Adverse Reaction, Intermediate, severe itching, 10/26/19) Home Medications Acetaminophen 500 Mg Tablet, 1,000 MG PO Q8H PRN for PAIN-MILD (1-4), (Reported) Diphenhydramine HCl 25 Mg Capsule, 25 MG PO HS PRN for SLEEP, (Reported) Estradiol 1 Mg Tablet, 1 MG PO HS, (Reported) Hydrocodone/Acetaminophen 1 Each Tablet, 2 EACH PO Q6H PRN for PAIN-MILD (1-4), (Reported) Multivitamin 1 Each Tablet, 1 EACH PO DAILY, (Reported) Ondansetron 8 Mg Tab.rapdis, 8 MG PO Q8H PRN for NAUSEA/VOMITING, (Reported) Ondansetron HCl 8 Mg Tablet, 8-16 MG PO Q6H PRN for NAUSEA-1ST LINE Prescribed by: MAKAYLA HAWKINS on 01/21/20 162 Promethazine HCl 25 Mg Tablet, 25 MG PO Q6H PRN for NAUSEA/VOMITING Prescribed by: MAKAYLA HAWKINS on 01/21/20 162 Ropinirole HCl 4 Mg Tablet, 4 MG PO HS, (Reported) Scopolamine 1 Each Patch.td72, 1 EACH TD Q72H, (Reported) Sertraline HCl 50 Mg Tablet, 50 MG PO HS, (Reported) Patient Home Medication List Home Medication List Reviewed: Yes Review of Systems Constitutional: see HPI EENTM: No hearing loss, No ear pain Respiratory: no symptoms reported, see HPI Cardiovascular: no symptoms reported, see HPI Gastrointestinal: no symptoms reported, see HPI Genitourinary: no symptoms reported, see HPI Musculoskeletal: see HPI, back pain; No joint pain, No joint swelling; muscle pain, muscle stiffness; No muscle weakness; neck pain Skin: no symptoms reported, see HPI; No change in color, No change in hair/nails Psychiatric/Neurological: No Symptoms Reported, See HPI Past Afcrdcb-Xqrjtl-Ivkbol Hx Patient Social History Alcohol Use: Denies Use Recreational Drug Use: No Smoking Status: Never a Smoker Type Used: Cigarettes 2nd Hand Smoke Exposure: No Recent Foreign Travel: No Contact w/Someone Who Travel: No Recent Infectious Disease Expo: No Recent Hopitalizations: No Physical Abuse: No Sexual Abuse: No Mistreated: No Fear: No Immunizations Up To Date Tetanus Booster (TDap): Less than 5yrs PED Vaccines UTD: No Date of Pneumonia Vaccine: May 17, 2012 Date of Influenza Vaccine: Jul 03, 2012 Seasonal Allergies Seasonal Allergies: Yes (MILD) Past Medical History Surgeries: Yes (KNEE SCOPES X5, HERNIA X2) Abdominal, Adenoidectomy, Appendectomy, Gallbladder, 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, Nephrectomy, Orthopedic, Tonsillectomy Respiratory: Yes Asthma Currently Using CPAP: No Currently Using BIPAP: No Cardiac: Yes Hypertension Neurological: Yes (RESTLESS LEG SYNDROME; CHRONIC DAILY HEADACHE COMPLAINTS) Headaches /Migraines 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: Yes (HX ENDOMETRIOSIS ) 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 Sexually Transmitted Disease: No HIV/AIDS: No Genitourinary: Yes (L KIDNEY REMOVED FOR TUMOR-MALIGNANT;) UTI-Chronic Gastrointestinal: Yes (CHRONIC ABDOMINAL PAIN AND NAUSEA/VOMTING COMPLAINTS) Abdominal Hernia, Gastroesophageal Reflux, Liver Disease/Jaundice, Obstructive Bowel, Pancreatitis, Polyps Musculoskeletal: Yes (COCCYX-REMOVED; MULTIPLE KNEE SURGERIES, ) Chronic Back Pain Endocrine: Yes (CHRONIC PANCREATITIS; OBESITY) HEENT: No Loss of Vision: Denies Hearing Impairment: Denies Cancer: Yes Kidney Did You Recieve Any Treatments: Yes What Type of Treatment Did You: Surgical Intervention Psychosocial: Yes Depression Integumentary: Yes Herpes Blood Disorders: No Adverse Reaction/Blood Tranf: No (N/A) Family Medical History Cardiovascular disease 19 FATHER Completed stroke 19 FATHER Diabetes mellitus 19 FATHER Hypercholesterolemia 19 FATHER 19 MOTHER Hypertension 19 FATHER 19 MOTHER Neoplasm 19 MOTHER Psychosocial problem 19 FATHER 19 MOTHER No Pertinent Family Hx, Cancer, Diabetes, Hypertension PSH: -RIGHT KNEE SCOPE X 5 -LEFT KNEE SCOPE X 2 -NASAL FRACTURE REPAIR -COCCYX REMOVAL -LEFT NEPHRECTOMY FOR MALIGNANCY -LEFT MID ABDOMEN INCISIONAL HERNIA REPAIR -DRAINAGE OF ABDOMINAL WALL ABSCESS -MULTIPLE EGD'S AND COLONOSCOPIES Physical Exam Vital Signs Vital Signs - First Documented 02/10/20 12:28 Temp 36.7 Pulse 77 Resp 18 B/P (MAP) 130/85 (100) O2 Delivery Room Air Capillary Refill : Less Than 3 Seconds Height, Weight, BMI Height: 5'3.00" Weight: 246lbs. 0oz. 111.946789gm; 46.00 BMI Method:Stated General Appearance: WD/WN, Moderate Distress HEENT: PERRL/EOMI, TMs Normal, Normal ENT Inspection, Pharynx Normal, Moist M ucous Membranes Neck: Limited Range of Motion; No Lymphadenopathy (L), No Lymphadenopathy (R); Tender Lateral; No Tender Midline Cardiovascular: Regular Rate, Rhythm, Normal Peripheral Pulses Respiratory: Chest Non Tender, Lungs Clear, Normal Breath Sounds, No Accessory Muscle Use, No Respiratory Distress Peripheral Pulses: 2+ Radial Pulses (R), 2+ Radial Pulses (L) Gastrointestinal: Normal Bowel Sounds, Non Tender, Soft Back: Decreased Range of Motion; No Vertebral Tenderness Extremity: Normal Capillary Refill, Normal Inspection, Normal Range of Motion Neurologic/Psychiatric: Alert, Oriented x3 Skin: Normal Color, Warm/Dry Lymphatic: No Adenopathy Progress/Results/Core Measures Results/Orders Vital Signs/I&O 02/10/20 12:28 Temp 36.7 Pulse 77 Resp 18 B/P (MAP) 130/85 (100) O2 Delivery Room Air Blood Pressure Mean: 100 Departure Impression Primary Impression: Trapezius muscle strain Disposition: 01 HOME, SELF-CARE Condition: Stable Departure-Patient Inst. Decision time for Depature: 12:54 Referrals: CARMEN GIBBS MD (PCP/Family) Primary Care Physician Patient Instructions: Muscle Strain (DC) Add. Discharge Instructions: Stop current muscle relaxer and start new muscle relaxer. Take steroid as directed. Apply heat to the area as tolerated for pain relief. All discharge instructions reviewed with patient and/or family. Voiced understanding. Scripts Methocarbamol (Robaxin-750) 750 Mg Tablet 750-1500 MG PO Q6H PRN for PAIN-MILD (1-4), #14 TAB Prov: GEORGES FINN APRN 02/10/20 Methylprednisolone (Methylprednisolone Dose Pack) 4 Mg Tab.ds.pk 4 MG PO UD for 6 Days, #21 PKG PER DOSE PACK INSTRUCTIONS Prov: GEORGES FINN APRN 02/10/20 GEORGES FINN APRN Feb 10, 2020 12:52
[2020-02-10] MEDS ORDERED: METH-313 PO (12:56)
[2020-02-10] MEDS ORDERED: METH4TAB10 PO (12:56)
== END 2020-02-10 13:02 | disposition home or self-care (01) ==
LOC: EDUNIT# 12:19 → ER 12:20
DX: S29.012A Strain of muscle and tendon of back wall of thorax, initial encounter (principal); F32.9 Major depressive disorder, single episode, unspecified; G43.909 Migraine, unspecified, not intractable, without status migrainosus; E66.9 Obesity, unspecified; G89.29 Other chronic pain; M54.9 Dorsalgia, unspecified; Z88.5 Allergy status to narcotic agent; Z88.0 Allergy status to penicillin; Z88.1 Allergy status to other antibiotic agents; Z68.42 Body mass index [BMI] 45.0-49.9, adult; Z79.52 Long term (current) use of systemic steroids; Z90.5 Acquired absence of kidney; Z85.528 Personal history of other malignant neoplasm of kidney; Z82.49 Family history of ischemic heart disease and other diseases of the circulatory system; X58.XXXA Exposure to other specified factors, initial encounter
CPT/HCPCS: 99282

== ENCOUNTER 2020-02-28 16:32 | Emergency (ER) | payer MEDICARE, MEDICAID ==
[~2020-02-28] VITALS: Ht 160 cm; Wt 120.0 kg
[~2020-02-28 16:32] MED LIST changes: -HYDR-3812 PO; +METH-313 PO; +METH4TAB10 PO
--- NOTE | 2020-02-28 16:52 | NUR ---
STORMY IN W/ PT AT THIS TIME.
--- NOTE | 2020-02-28 17:04 | ED General ---
General Chief Complaint: General Problems/Pain Stated Complaint: BREAST PAIN Nursing Triage Note: PT TO ED W/ C/O LT BREAST PAIN. PT DENIES INJURY. NO REDNESS, SWELLING NOTED. Nursing Sepsis Screen: No Definite Risk History of Present Illness Date Seen by Provider: Feb 28, 2020 Time Seen by Provider: 16:45 Initial Comments This is a well-appearing 34-year-old female who presents to the ER for left sided breast pain that began last night. States pain is localized to the lateral aspect near the areola. Denies any redness or discharge. Denies fevers, chills, nausea, vomiting. No other complaints reported. Timing/Duration: 12-24 Hours Severity: Mild Modifying Factors: worse with Movement Associated Systoms: No Chest Pain, No Diaphoresis, No Fever/Chills, No Headaches, No Nausea/Vomiting, No Shortness of Air Allergies and Home Medications Allergies Coded Allergies: fentanyl (Verified Allergy, Unknown, 10/16/18) meperidine (Verified Allergy, Unknown, 10/16/18) penicillin G (Verified Allergy, Unknown, 10/16/18) vancomycin (Verified Adverse Reaction, Intermediate, severe itching, 10/26/19) Home Medications Acetaminophen 500 Mg Tablet, 1,000 MG PO Q8H PRN for PAIN-MILD (1-4), (Reported) Diphenhydramine HCl 25 Mg Capsule, 25 MG PO HS PRN for SLEEP, (Reported) Estradiol 1 Mg Tablet, 1 MG PO HS, (Reported) Hydrocodone/Acetaminophen 1 Each Tablet, 2 EACH PO Q6H PRN for PAIN-MILD (1-4), (Reported) Methocarbamol 750 Mg Tablet, 750-1,500 MG PO Q6H PRN for PAIN-MILD (1-4) Prescribed by: GEORGES FINN on 02/10/20 1256 Methylprednisolone 4 Mg Tab.ds.pk, 4 MG PO UD PER DOSE PACK INSTRUCTIONS Prescribed by: GEORGES FINN on 02/10/20 1256 Multivitamin 1 Each Tablet, 1 EACH PO DAILY, (Reported) Ondansetron 8 Mg Tab.rapdis, 8 MG PO Q8H PRN for NAUSEA/VOMITING, (Reported) Ondansetron HCl 8 Mg Tablet, 8-16 MG PO Q6H PRN for NAUSEA-1ST LINE Prescribed by: MAKALYA HAWKINS on 01/21/20 1621 Promethazine HCl 25 Mg Tablet, 25 MG PO Q6H PRN for NAUSEA/VOMITING Prescribed by: MAKAYLA HAWKINS on 01/21/20 1621 Ropinirole HCl 4 Mg Tablet, 4 MG PO HS, (Reported) Scopolamine 1 Each Patch.td72, 1 EACH TD Q72H, (Reported) Sertraline HCl 50 Mg Tablet, 50 MG PO HS, (Reported) Patient Home Medication List Home Medication List Reviewed: Yes Review of Systems Review of Systems Constitutional: no symptoms reported EENTM: no symptoms reported Respiratory: no symptoms reported Cardiovascular: no symptoms reported Gastrointestinal: no symptoms reported Genitourinary: no symptoms reported Musculoskeletal: no symptoms reported Skin: no symptoms reported Psychiatric/Neurological: No Symptoms Reported Hematologic/Lymphatic: No Symptoms Reported Immunological/Allergic: no symptoms reported Localized left breast tenderness. Past Seprevw-Hkjrma-Whqxro Hx Patient Social History Type Used: Cigarettes 2nd Hand Smoke Exposure: No Recent Foreign Travel: No Contact w/Someone Who Travel: No Recent Infectious Disease Expo: No Recent Hopitalizations: No Physical Abuse: No Sexual Abuse: No Mistreated: No Fear: No Immunizations Up To Date Tetanus Booster (TDap): Less than 5yrs PED Vaccines UTD: No Date of Pneumonia Vaccine: May 17, 2012 Date of Influenza Vaccine: Jul 03, 2012 Seasonal Allergies Seasonal Allergies: Yes (MILD) Past Medical History Surgeries: Yes (KNEE SCOPES X5, HERNIA X2) Abdominal, Adenoidectomy, Appendectomy, Gallbladder, 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, Nephrectomy, Orthopedic, Tonsillectomy Respiratory: Yes Asthma Currently Using CPAP: No Currently Using BIPAP: No Cardiac: Yes Hypertension Neurological: Yes (RESTLESS LEG SYNDROME; CHRONIC DAILY HEADACHE COMPLAINTS) Headaches /Migraines 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: Yes (HX ENDOMETRIOSIS ) 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 Sexually Transmitted Disease: No HIV/AIDS: No Genitourinary: Yes (L KIDNEY REMOVED FOR TUMOR-MALIGNANT;) UTI-Chronic Gastrointestinal: Yes (CHRONIC ABDOMINAL PAIN AND NAUSEA/VOMTING COMPLAINTS) Abdominal Hernia, Gastroesophageal Reflux, Liver Disease/Jaundice, Obstructive Bowel, Pancreatitis, Polyps Musculoskeletal: Yes (COCCYX-REMOVED; MULTIPLE KNEE SURGERIES, ) Chronic Back Pain Endocrine: Yes (CHRONIC PANCREATITIS; OBESITY) HEENT: No Loss of Vision: Denies Hearing Impairment: Denies Cancer: Yes Kidney Did You Recieve Any Treatments: Yes What Type of Treatment Did You: Surgical Intervention Psychosocial: Yes Depression Integumentary: Yes Herpes Blood Disorders: No Adverse Reaction/Blood Tranf: No (N/A) Family Medical History Cardiovascular disease 19 FATHER Completed stroke 19 FATHER Diabetes mellitus 19 FATHER Hypercholesterolemia 19 FATHER 19 MOTHER Hypertension 19 FATHER 19 MOTHER Neoplasm 19 MOTHER Psychosocial problem 19 FATHER 19 MOTHER No Pertinent Family Hx, Cancer, Diabetes, Hypertension PSH: -RIGHT KNEE SCOPE X 5 -LEFT KNEE SCOPE X 2 -NASAL FRACTURE REPAIR -COCCYX REMOVAL -LEFT NEPHRECTOMY FOR MALIGNANCY -LEFT MID ABDOMEN INCISIONAL HERNIA REPAIR -DRAINAGE OF ABDOMINAL WALL ABSCESS -MULTIPLE EGD'S AND COLONOSCOPIES Physical Exam Vital Signs Vital Signs - First Documented 02/28/20 16:46 Temp 36.2 Pulse 86 Resp 18 B/P (MAP) 144/108 (120) Pulse Ox 98 O2 Delivery Room Air Capillary Refill : Less Than 3 Seconds Height, Weight, BMI Height: 5'3.00" Weight: 246lbs. 0oz. 111.176051lu; 46.00 BMI Method:Stated General Appearance: No Apparent Distress, WD/WN Eyes: Bilateral Eye Normal Inspection, Bilateral Eye PERRL, Bilateral Eye EOMI HEENT: PERRL/EOMI, Normal ENT Inspection Neck: Full Range of Motion, Normal Inspection, Non Tender, Supple Respiratory: Chest Non Tender, Lungs Clear, Normal Breath Sounds, No Accessory Muscle Use, No Respiratory Distress Cardiovascular: Regular Rate, Rhythm, No Edema, Normal Peripheral Pulses Gastrointestinal: Normal Bowel Sounds, Non Tender, Soft Back: Normal Inspection; No Decreased Range of Motion Extremity: Normal Capillary Refill, Normal Inspection, Normal Range of Motion Neurologic/Psychiatric: Alert, Oriented x3, No Motor/Sensory Deficits, Normal Mood/Affect Skin: Normal Color, Warm/Dry Lymphatic: No Adenopathy Comments Inspection and palpation of bilateral breasts. Fibrocystic breast changes, no solitary nodule appreciated. No areas of erythema, swelling or bruising appreciated. No discharge expressed from the nipple. Progress/Results/Core Measures Suspected Sepsis Recent Fever Within 48 Hours: No Infection Criteria Present: None New/Unexplained Altered Menta: No Sepsis Screen: No Definite Risk SIRS Temperature: Pulse: 86 Respiratory Rate: 18 Blood Pressure 144 /108 Mean: 120 Results/Orders Vital Signs/I&O 02/28/20 02/28/20 16:46 17:12 Temp 36.2 Pulse 86 80 Resp 18 18 B/P (MAP) 144/108 (120) 142/94 Pulse Ox 98 98 O2 Delivery Room Air Room Air Capillary Refill : Less Than 3 Seconds Blood Pressure Mean: 120 Departure Impression Primary Impression: Mastalgia Disposition: 01 HOME, SELF-CARE Condition: Stable/Unchanged Departure-Patient Inst. Decision time for Depature: 17:05 Referrals: CARMEN GIBBS MD (PCP/Family) Primary Care Physician Patient Instructions: Mastalgia (DC) Add. Discharge Instructions: Plan: 1. Discharge home. 2. May take Tylenol as needed for pain per package instructions. 3. Follow up with your primary care provider tomorrow to discuss having ultrasound/breast MRI. 4. Use ice to the affected site 20 minutes at a time 4-6 times a day as needed for pain. 5. Return if you develop any redness, warmth, fever greater than 100.4, or for any new or concerning symptoms. All discharge instructions reviewed with patient and/or family. Voiced unde rstanding. OSVALDO CALDWELL EXECUTIVE [employer] Feb 28, 2020 17:04
[2020-02-28 17:12] VITALS: BP 142/94
--- NOTE | 2020-02-28 17:12 | NUR ---
PT DISCHARGED TO HOME W/ INSTR. PT TO F/U W/ PCP ET RETURN IF SYMPTOMS CHANGE OR GET WORSE. UNDERSTANDING VOICED, NO QUESTIONS.
== END 2020-02-28 17:12 | disposition home or self-care (01) ==
LOC: EDUNIT# 16:32 → ER 16:34
DX: N64.4 Mastodynia (principal); G89.29 Other chronic pain; M54.9 Dorsalgia, unspecified; F32.9 Major depressive disorder, single episode, unspecified; Z20.828 Contact with and (suspected) exposure to other viral communicable diseases; Z82.49 Family history of ischemic heart disease and other diseases of the circulatory system; Z80.9 Family history of malignant neoplasm, unspecified; Z85.828 Personal history of other malignant neoplasm of skin; Z88.0 Allergy status to penicillin; Z88.5 Allergy status to narcotic agent; Z88.1 Allergy status to other antibiotic agents; Z88.8 Allergy status to other drugs, medicaments and biological substances; Z79.52 Long term (current) use of systemic steroids; Z79.891 Long term (current) use of opiate analgesic
CPT/HCPCS: 99281

== ENCOUNTER 2020-04-07 12:49 | Emergency (ER) | payer MEDICARE, MEDICAID ==
[~2020-04-07] VITALS: Ht 160 cm; Wt 113.6 kg
[2020-04-07] MEDS ORDERED: morphine INJ 10 MG/ML 1ML (SYR OR VIAL) IVP STA ×2 (13:17→14:57)
--- NOTE | 2020-04-07 13:19 | ED Abdominal Pain ---
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 PT REPORTS NAUSEA ONLY. NO OTHER C/O VOICED. Sepsis Screen: No Definite Risk Source of Information: Patient Exam Limitations: No Limitations History of Present Illness Date Seen by Provider: Apr 07, 2020 Time Seen by Provider: 13:10 Initial Comments Patient is a 35-year-old female who presents to the emergency room today with a chief complaint of left upper quadrant abdominal pain as well as right lower quadrant abdominal pain. Patient has a long history of multiple abdominal surgeries mesh repair to a hernia x2 in the left flank. She has chronic abdominal discomfort related to the mesh she states. Patient denies any fevers, chills, nausea, vomiting. She states she has had diarrhea for the last couple of days. The right lower quadrant pain started today the left upper quadrant pain has been going on for about 2 days. She states she has been taking qqqf-col-kjbggqe Tylenol as well as hydrocodone at home for the pain her last dose of medication was around 10:00 this morning. She denies any problems with urination. She states she "always" has a little blood in her stools. Nothing appears to make her pain any better or any worse. It is chronic. She states she feels like her insides are being "stabbed". All other review of systems reviewed and negative except as stated. Timing/Duration: 2-3 Days Severity/Quality: Severe Location: LUQ, RLQ Radiation: No Radiation Activities at Onset: None Modifying Factors: Improves With Analgesics Associated Symptoms: Denies Symptoms Allergies and Home Medications Allergies Coded Allergies: fentanyl (Verified Allergy, Unknown, 10/16/18) meperidine (Verified Allergy, Unknown, 10/16/18) penicillin G (Verified Allergy, Unknown, 10/16/18) vancomycin (Verified Adverse Reaction, Intermediate, severe itching, 10/26/19) Home Medications Acetaminophen 500 Mg Tablet, 1,000 MG PO Q8H PRN for PAIN-MILD (1-4), (Reported) Diphenhydramine HCl 25 Mg Capsule, 25 MG PO HS PRN for SLEEP, (Reported) Estradiol 1 Mg Tablet, 1 MG PO HS, (Reported) Hydrocodone/Acetaminophen 1 Each Tablet, 2 EACH PO Q6H PRN for PAIN-MILD (1-4), (Reported) Methocarbamol 750 Mg Tablet, 750-1,500 MG PO Q6H PRN for PAIN-MILD (1-4) Prescribed by: GEORGES FINN on 02/10/20 1256 Methylprednisolone 4 Mg Tab.ds.pk, 4 MG PO UD PER DOSE PACK INSTRUCTIONS Prescribed by: GEORGES FINN on 02/10/20 1256 Multivitamin 1 Each Tablet, 1 EACH PO DAILY, (Reported) Ondansetron 8 Mg Tab.rapdis, 8 MG PO Q8H PRN for NAUSEA/VOMITING, (Reported) Ondansetron HCl 8 Mg Tablet, 8-16 MG PO Q6H PRN for NAUSEA-1ST LINE Prescribed by: MAKAYLA HAWKINS on 01/21/20 162 Promethazine HCl 25 Mg Tablet, 25 MG PO Q6H PRN for NAUSEA/VOMITING Prescribed by: MAKAYLA HAWKINS on 01/21/20 162 Ropinirole HCl 4 Mg Tablet, 4 MG PO HS, (Reported) Scopolamine 1 Each Patch.td72, 1 EACH TD Q72H, (Reported) Sertraline HCl 50 Mg Tablet, 50 MG PO HS, (Reported) Patient Home Medication List Home Medication List Reviewed: Yes Review of Systems Review of Systems Constitutional: no symptoms reported EENTM: No Symptoms Reported Cardiovascular: No Symptoms Reported Gastrointestinal: See HPI, Abdominal Pain Genitourinary: No Symptoms Reported Musculoskeletal: no symptoms reported Skin: no symptoms reported Psychiatric/Neurological: Anxiety All Other Systems Reviewed Negative Unless Noted: Yes Past Ezaqogb-Zlttpz-Dqrklw Hx Patient Social History Alcohol Use: Denies Use Recreational Drug Use: No Smoking Status: Never a Smoker Type Used: Cigarettes 2nd Hand Smoke Exposure: No Recent Foreign Travel: No Contact w/Someone Who Travel: No Recent Infectious Disease Expo: No Recent Hopitalizations: No Physical Abuse: No Sexual Abuse: No Mistreated: No Fear: No Immunizations Up To Date Tetanus Booster (TDap): Less than 5yrs PED Vaccines UTD: No Date of Pneumonia Vaccine: May 17, 2012 Date of Influenza Vaccine: Jul 03, 2012 Seasonal Allergies Seasonal Allergies: Yes (MILD) Past Medical History Surgeries: Yes (KNEE SCOPES X5, HERNIA X2) Abdominal, Adenoidectomy, Appendectomy, Gallbladder, 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, Nephrectomy, Orthopedic, Tonsillectomy Respiratory: Yes Asthma Currently Using CPAP: No Currently Using BIPAP: No Cardiac: Yes Hypertension Neurological: Yes (RESTLESS LEG SYNDROME; CHRONIC DAILY HEADACHE COMPLAINTS) Headaches /Migraines 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: Yes (HX ENDOMETRIOSIS ) 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: 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 Sexually Transmitted Disease: No HIV/AIDS: No Genitourinary: Yes (L KIDNEY REMOVED FOR TUMOR-MALIGNANT;) UTI-Chronic Gastrointestinal: Yes (CHRONIC ABDOMINAL PAIN AND NAUSEA/VOMTING COMPLAINTS) Abdominal Hernia, Gastroesophageal Reflux, Liver Disease/Jaundice, Obstructive Bowel, Pancreatitis, Polyps Musculoskeletal: Yes (COCCYX-REMOVED; MULTIPLE KNEE SURGERIES, ) Chronic Back Pain Endocrine: Yes (CHRONIC PANCREATITIS; OBESITY) HEENT: No Loss of Vision: Denies Hearing Impairment: Denies Cancer: Yes Kidney Did You Recieve Any Treatments: Yes What Type of Treatment Did You: Surgical Intervention Psychosocial: Yes Depression Integumentary: Yes Herpes Blood Disorders: No Adverse Reaction/Blood Tranf: No (N/A) Family Medical History Cardiovascular disease 19 FATHER Completed stroke 19 FATHER Diabetes mellitus 19 FATHER Hypercholesterolemia 19 FATHER 19 MOTHER Hypertension 19 FATHER 19 MOTHER Neoplasm 19 MOTHER Psychosocial problem 19 FATHER 19 MOTHER No Pertinent Family Hx, Cancer, Diabetes, Hypertension PSH: -RIGHT KNEE SCOPE X 5 -LEFT KNEE SCOPE X 2 -NASAL FRACTURE REPAIR -COCCYX REMOVAL -LEFT NEPHRECTOMY FOR MALIGNANCY -LEFT MID ABDOMEN INCISIONAL HERNIA REPAIR -DRAINAGE OF ABDOMINAL WALL ABSCESS -MULTIPLE EGD'S AND COLONOSCOPIES Physical Exam Vital Signs Vital Signs - First Documented 04/07/20 12:58 Temp 36.0 Pulse 97 Resp 20 B/P (MAP) 155/135 (142) Pulse Ox 97 O2 Delivery Room Air Capillary Refill : Less Than 3 Seconds Height/Weight/BMI Height: 5'3.00" Weight: 246lbs. 0oz. 111.802828dl; 44.00 BMI Method:Stated General Appearance: WD/WN, moderate distress (Patient is holding her right lower quadrant and tearful sitting at the side of the bed on my initial evaluation) HEENT: PERRL/EOMI Neck: full range of motion Respiratory: chest non-tender, lungs clear, normal breath sounds, no respiratory distress, no accessory muscle use Cardiovascular: regular rate, rhythm, no edema, no murmur Gastrointestinal: normal bowel sounds (Quiet bowel sounds noted throughout, tenderness to palpation in the left upper quadrant and right lower quadrant. No rebound, guarding; no palpable defects in the anterior abdominal wall) Neurologic/Psychiatric: no motor/sensory deficits, alert, normal mood/affect Skin: normal color, warm/dry Progress/Results/Core Measures Results/Orders Lab Results Laboratory Tests Test 04/07/20 13:01 04/07/20 13:29 Range/Units Urine Color YELLOW Urine Clarity SL CLOUDY Urine pH 6.0 5-9 Urine Specific [place] 1.020 1.016-1.022 Urine Protein NEGATIVE NEGATIVE Urine Glucose (UA) NEGATIVE NEGATIVE Urine Ketones NEGATIVE NEGATIVE Urine Nitrite NEGATIVE NEGATIVE Urine Bilirubin NEGATIVE NEGATIVE Urine Urobilinogen 0.2 < = 1.0 MG/DL Urine Leukocyte Esterase NEGATIVE NEGATIVE Urine RBC (Auto) NEGATIVE NEGATIVE Urine RBC NONE /HPF Urine WBC NONE /HPF Urine Squamous Epithelial Cells 0-2 /HPF Urine Crystals NONE /LPF Urine Bacteria NEGATIVE /HPF Urine Casts NONE /LPF Urine Mucus NEGATIVE /LPF Urine Culture Indicated NO White Blood Count 6.9 4.3-11.0 10^3/uL Red Blood Count 4.67 3.80-5.11 10^6/uL Hemoglobin 12.9 11.5-16.0 g/dL Hematocrit 40 35-52 % Mean Corpuscular Volume 85 80-99 fL Mean Corpuscular Hemoglobin 28 25-34 pg Mean Corpuscular Hemoglobin Concent 32 32-36 g/dL Red Cell Distribution Width 13.9 10.0-14.5 % Platelet Count 237 130-400 10^3/uL Mean Platelet Volume 9.4 9.0-12.2 fL Immature Granulocyte % (Auto) 1 % Neutrophils (%) (Auto) 55 42-75 % Lymphocytes (%) (Auto) 34 12-44 % Monocytes (%) (Auto) 5 0-12 % Eosinophils (%) (Auto) 5 0-10 % Basophils (%) (Auto) 1 0-10 % Neutrophils # (Auto) 3.8 1.8-7.8 10^3/uL Lymphocytes # (Auto) 2.3 1.0-4.0 10^3/uL Monocytes # (Auto) 0.3 0.0-1.0 10^3/uL Eosinophils # (Auto) 0.4 H 0.0-0.3 10^3/uL Basophils # (Auto) 0.0 0.0-0.1 10^3/uL Immature Granulocyte # (Auto) 0.1 0.0-0.1 10^3/uL Sodium Level 138 135-145 MMOL/L Potassium Level 3.8 3.6-5.0 MMOL/L Chloride Level 103 98-107 MMOL/L Carbon Dioxide Level 25 21-32 MMOL/L Anion Gap 10 5-14 MMOL/L Blood Urea Nitrogen 17 7-18 MG/DL Creatinine 0.95 0.60-1.30 MG/DL Estimat Glomerular Filtration Rate > 60 BUN/Creatinine Ratio 18 Glucose Level 160 H 70-105 MG/DL Calcium Level 9.5 8.5-10.1 MG/DL Corrected Calcium 9.3 8.5-10.1 MG/DL Total Bilirubin 0.4 0.1-1.0 MG/DL Aspartate Amino Transf (AST/SGOT) 64 H 5-34 U/L Alanine Aminotransferase (ALT/SGPT) 75 H 0-55 U/L Alkaline Phosphatase 63 40-136 U/L Total Protein 7.8 6.4-8.2 GM/DL Albumin 4.3 3.2-4.5 GM/DL Lipase 52 8-78 U/L My Orders Orders - GEO BORJA MD Cbc With Automated Diff (04/07/20 13:17) Comprehensive Metabolic Panel (04/07/20 13:17) Lipase (04/07/20 13:17) Ua Culture If Indicated (04/07/20 13:17) Ed Iv/Invasive Line Start (04/07/20 13:17) Morphine Injection (Morphine Injection (04/07/20 13:17) Ondansetron Injection (Zofran Injectio (04/07/20 13:30) Medications Given in ED Current Medications Medications Dose Ordered Sig/Neal Route Start Time Stop Time Status Last Admin Dose Admin Ondansetron HCl 4 mg ONCE ONCE IVP 04/07/20 13:30 04/07/20 13:31 DC 04/07/20 13:29 4 MG Vital Signs/I&O 04/07/20 12:58 Temp 36.0 Pulse 97 Resp 20 B/P (MAP) 155/135 (142) Pulse Ox 97 O2 Delivery Room Air Blood Pressure Mean: 142 Progress Progress Note : Time: 13:30 Progress Note 35-year-old female with a chief complaint of abdominal pain, chronic with acute exacerbation over the last 2 days. Evaluation today includes a physical exam, CBC, Chem-12, lipase, urinalysis. The patient has had previous nephrectomy on the left secondary to history of kidney cancer. She has had her gallbladder removed her appendix removed she has had previous bowel obstruction she has had the left nephrectomy. Patient states that her current pain does not feel like her bowel obstruction pain and she is still having bowel movements and not nauseated or vomiting so this is low on my list. I am concerned about a possible kidney stone on the right and will evaluate for blood in her urine. She has been treated here in the emergency department with 4 mg of IV morphine as well as 4 g of Zofran. We will see if this gives her some relief and evaluate laboratory studies as they become available. 1452 Patient laboratory evaluation CBC, chemistry with lipase, urinalysis all reviewed and within normal limits. She has no evidence of acute pancreatitis no elevation in her white blood cell count consistent with inflammation or infection. Her urine is clean without any red blood cells. She is still complaining of pain and requests a little bit more pain medication. I had a long discussion with the patient regarding her current pain medication regimen. She has hydrocodone at home I cautioned her strongly on taking too much of this. She reassures me that she is careful with her medications. She tells me she has follow-up with the pain management doctor next month. She also has follow-u p with one of her other doctors the first week of April. Ms. Rajput has no clinical or objective findings to warrant further investigation from the emergency department at this time. She does not have an acute surgical abdomen. I do not believe that she needs a CAT scan of the abdomen and pelvis today. She understands this verbalizes understanding. All questions are sought and answered and she is stable for discharge. Departure Impression Primary Impression: Abdominal pain Qualified Codes: R10.84 - Generalized abdominal pain Disposition: 01 HOME, SELF-CARE Condition: Stable Departure-Patient Inst. Decision time for Depature: 14:54 Referrals: CARMEN GIBBS MD (PCP/Family) Primary Care Physician Patient Instructions: CHRONIC PAIN, Severe Abdominal Pain, Adult (DC) Add. Discharge Instructions: Drink plenty of fluids to stay well-hydrated. Continue your At Home pain medication regimen as previously prescribed. Be careful taking these medications as they can become habit forming/addictive. You might try using an gqjf-ikk-[id number] lidocaine patch, please talk to your local pharmacist about this medication. Return to the emergency department for any worsening of your abdominal pain associated with nausea, vomiting, fever over 101 or any other emergent concerning symptoms. GEO BORJA MD Apr 07, 2020 13:19
[2020-04-07 13:22] LABS: BILIRUBIN,URINE NEGATIVE (NEGATIVE); CLARITY,URINE SL CLOUDY; COLOR,URINE YELLOW; GLUCOSE, URINE (UA) NEGATIVE (NEGATIVE); KETONES,URINE NEGATIVE (NEGATIVE); LEUKOCYTE ESTERASE ,URINE NEGATIVE (NEGATIVE); NITRITE,URINE NEGATIVE (NEGATIVE); PROTEIN,URINE NEGATIVE (NEGATIVE)
[2020-04-07] MEDS ORDERED: ONDANSETRON 4 MG/2 ML (SDV) Z0FRAN IVP ONE (13:30)
[2020-04-07 13:33] LABS: BACTERIA,URINE NEGATIVE /HPF; SQUAMOUS EPITHELIAL CELL,UR 0-2 /HPF
[2020-04-07 13:39] LABS: BASOPHILS % (AUTO) 1 % (0-10); EOSINOPHILS # (AUTO) 0.4 10^3/uL (0.0-0.3); EOSINOPHILS % (AUTO) 5 % (0-10); HEMATOCRIT 40 % (35-52); HEMOGLOBIN 12.9 g/dL (11.5-16.0); LYMPHOCYTES # (AUTO) 2.3 10^3/uL (1.0-4.0); LYMPHOCYTES % (AUTO) 34 % (12-44); MEAN CORPUSCULAR HEMOGLOBIN 28 pg (25-34); MEAN CORPUSCULAR HGB CONC 32 g/dL (32-36); MEAN CORPUSCULAR VOLUME 85 fL (80-99); MEAN PLATELET VOLUME 9.4 fL (9.0-12.2); MONOCYTES # (AUTO) 0.3 10^3/uL (0.0-1.0); MONOCYTES % (AUTO) 5 % (0-12); NEUTROPHILS # (AUTO) 3.8 10^3/uL (1.8-7.8); NEUTROPHILS % (AUTO) 55 % (42-75); PLATELET COUNT 237 10^3/uL (130-400); WHITE BLOOD COUNT 6.9 10^3/uL (4.3-11.0)
[2020-04-07 13:53] LABS: ALBUMIN 4.3 GM/DL (3.2-4.5); CHLORIDE 103 MMOL/L (98-107); POTASSIUM 3.8 MMOL/L (3.6-5.0); SODIUM 138 MMOL/L (135-145)
[2020-04-07 13:55] LABS: CALCIUM 9.5 MG/DL (8.5-10.1)
[2020-04-07 13:56] LABS: GLUCOSE 160 MG/DL (70-105); TOTAL PROTEIN 7.8 GM/DL (6.4-8.2)
[2020-04-07 13:57] LABS: BILIRUBIN,TOTAL 0.4 MG/DL (0.1-1.0); CARBON DIOXIDE 25 MMOL/L (21-32)
[2020-04-07 13:59] LABS: ALKALINE PHOSPHATASE 63 U/L (40-136); CREATININE SERUM 0.95 MG/DL (0.60-1.30); GFR ESTIMATED > 60
[2020-04-07 14:00] LABS: BUN/CREATININE RATIO 18
[2020-04-07 14:02] LABS: ALANINE AMINOTRANSFERASE 75 U/L (0-55)
[2020-04-07 14:03] LABS: LIPASE 52 U/L (8-78)
[2020-04-07] MEDS ORDERED: diphenhydrAMINE 50 MG/ML INJ (BENADRYL) IVP ONE (15:15)
[2020-04-07 15:33] VITALS: BP 128/85
== END 2020-04-07 15:34 | disposition home or self-care (01) ==
LOC: EDUNIT# 12:49 → ER 12:51
DX: R10.12 Left upper quadrant pain (principal); R10.31 Right lower quadrant pain; J45.909 Unspecified asthma, uncomplicated; F32.9 Major depressive disorder, single episode, unspecified; G89.29 Other chronic pain; M54.9 Dorsalgia, unspecified; F41.9 Anxiety disorder, unspecified; Z82.49 Family history of ischemic heart disease and other diseases of the circulatory system; Z83.3 Family history of diabetes mellitus; Z80.9 Family history of malignant neoplasm, unspecified; Z85.528 Personal history of other malignant neoplasm of kidney; Z88.0 Allergy status to penicillin; Z88.5 Allergy status to narcotic agent; Z88.8 Allergy status to other drugs, medicaments and biological substances; Z79.52 Long term (current) use of systemic steroids; Z79.891 Long term (current) use of opiate analgesic
CPT/HCPCS: 36415; 80053; 81000; 83690; 85025

== ENCOUNTER → 2020-04-12 | Outpatient (CLI) | payer MEDICARE, MEDICAID ==
--- NOTE | 2020-04-12 13:25 | Diagnostic Imaging Report ---
INDICATION: Left breast pain. FINDINGS: Sonographic interrogation of all 4 quadrants and the retroareolar region as well as left axilla was evaluated. No sonographic abnormality is seen. No solid or cystic mass is detected. IMPRESSION: No sonographic abnormality is identified. If symptoms persist, consideration could be given to performance of a diagnostic mammogram. ACR BI-RADS Category 1: Negative. Dictated by: Dictated on workstation # [id number]
== END ==
LOC: RAD 11:39
PROVIDERS: ATTEND Family Medicine
DX: N64.4 Mastodynia (principal)
CPT/HCPCS: 76641

== ENCOUNTER 2020-04-30 09:49 | Emergency (ER) | payer MEDICARE, MEDICAID ==
[~2020-04-30] VITALS: Ht 157.5 cm; Wt 117.9 kg
[2020-04-30 10:04] VITALS: BP 137/87
[2020-04-30] MEDS ORDERED: SULF1TAB35 PO (10:27)
--- NOTE | 2020-04-30 10:27 | ED Integumentary General ---
General Chief Complaint: Skin/Wound Problems Stated Complaint: POST OP BLEEDING - NECK Nursing Triage Note: PT AMB TO TRIAGE WITH COMPLAINT OF DRAINING WOUND. HAD CYST REMOVED ON BACK OF NECK BY DR MARROQUIN ON SATURDAY. STATES THE WOUND IS DRAINING EXCESSIVELY AND IS GOING THROUGH 6 BANDAIDS A DAY. Source: patient Exam Limitations: no limitations History of Present Illness Date Seen by Provider: Apr 30, 2020 Time Seen by Provider: 10:10 Initial Comments This 35-year-old woman presents to the emergency room with complaints of increasing pain and persistent drainage from an incision on her posterior neck. She had a cyst removed by Dr. Marroquin on April 26. She denies any fever. Allergies and Home Medications Allergies Coded Allergies: fentanyl (Verified Allergy, Unknown, 10/16/18) meperidine (Verified Allergy, Unknown, 10/16/18) penicillin G (Verified Allergy, Unknown, 10/16/18) vancomycin (Verified Adverse Reaction, Intermediate, severe itching, 10/26/19) Home Medications Acetaminophen 500 Mg Tablet, 1,000 MG PO Q8H PRN for PAIN-MILD (1-4), (Reported) Diphenhydramine HCl 25 Mg Capsule, 25 MG PO HS PRN for SLEEP, (Reported) Estradiol 1 Mg Tablet, 1 MG PO HS, (Reported) Hydrocodone/Acetaminophen 1 Each Tablet, 2 EACH PO Q6H PRN for PAIN-MILD (1-4), (Reported) Methocarbamol 750 Mg Tablet, 750-1,500 MG PO Q6H PRN for PAIN-MILD (1-4) Prescribed by: GEORGES FINN on 02/10/20 125 Methylprednisolone 4 Mg Tab.ds.pk, 4 MG PO UD PER DOSE PACK INSTRUCTIONS Prescribed by: GEORGES FINN on 02/10/20 1256 Multivitamin 1 Each Tablet, 1 EACH PO DAILY, (Reported) Ondansetron 8 Mg Tab.rapdis, 8 MG PO Q8H PRN for NAUSEA/VOMITING, (Reported) Ondansetron HCl 8 Mg Tablet, 8-16 MG PO Q6H PRN for NAUSEA-1ST LINE Prescribed by: MAKAYLA HAWKINS on 01/21/20 162 Promethazine HCl 25 Mg Tablet, 25 MG PO Q6H PRN for NAUSEA/VOMITING Prescribed by: MAKAYLA HAWKINS on 01/21/20 162 Ropinirole HCl 4 Mg Tablet, 4 MG PO HS, (Reported) Scopolamine 1 Each Patch.td72, 1 EACH TD Q72H, (Reported) Sertraline HCl 50 Mg Tablet, 50 MG PO HS, (Reported) Sulfamethoxazole/Trimethoprim 1 Each Tablet, 1 EACH PO BID Prescribed by: IZABELA MAC on 04/30/20 1027 Patient Home Medication List Home Medication List Reviewed: Yes Review of Systems Review of Systems Constitutional: no symptoms reported EENTM: no symptoms reported Respiratory: no symptoms reported Cardiovascular: no symptoms reported Gastrointestinal: no symptoms reported Skin: see HPI Psychiatric/Neurological: No Symptoms Reported Endocrine: No Symptoms Reported Hematologic/Lymphatic: Other (tender posterior cervical lymphnodes) Past Njovjwm-Nvzuvo-Rhzbic Hx Past Med/Social Hx: Reviewed Nursing Past Med/Soc Hx Patient Social History Alcohol Use: Denies Use Recreational Drug Use: No Smoking Status: Never a Smoker Type Used: Cigarettes 2nd Hand Smoke Exposure: No Recent Foreign Travel: No Contact w/Someone Who Travel: No Recent Infectious Disease Expo: No Recent Hopitalizations: No Immunizations Up To Date Tetanus Booster (TDap): Less than 5yrs PED Vaccines UTD: No Date of Pneumonia Vaccine: May 17, 2012 Date of Influenza Vaccine: Jul 03, 2012 Seasonal Allergies Seasonal Allergies: Yes (MILD) Past Medical History Surgeries: Yes (KNEE SCOPES X5, HERNIA X2, CYST REMOVED FROM NECK) Abdominal, Adenoidectomy, Appendectomy, Gallbladder, 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, Nephrectomy, Orthopedic, Tonsillectomy Respiratory: Yes Asthma Currently Using CPAP: No Currently Using BIPAP: No Cardiac: Yes Hypertension Neurological: Yes (RESTLESS LEG SYNDROME; CHRONIC DAILY HEADACHE COMPLAINTS) Headaches /Migraines 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: Yes (HX ENDOMETRIOSIS ) 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: 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 Sexually Transmitted Disease: No HIV/AIDS: No Genitourinary: Yes (L KIDNEY REMOVED FOR TUMOR-MALIGNANT;) UTI-Chronic Gastrointestinal: Yes (CHRONIC ABDOMINAL PAIN AND NAUSEA/VOMTING COMPLAINTS) Abdominal Hernia, Gastroesophageal Reflux, Liver Disease/Jaundice, Obstructive Bowel, Pancreatitis, Polyps Musculoskeletal: Yes (COCCYX-REMOVED; MULTIPLE KNEE SURGERIES, ) Chronic Back Pain Endocrine: Yes (CHRONIC PANCREATITIS; OBESITY) HEENT: No Loss of Vision: Denies Hearing Impairment: Denies Cancer: Yes Kidney Did You Recieve Any Treatments: Yes What Type of Treatment Did You: Surgical Intervention Psychosocial: Yes Depression Integumentary: Yes Herpes Blood Disorders: No Adverse Reaction/Blood Tranf: No (N/A) Family Medical History Cardiovascular disease 19 FATHER Completed stroke 19 FATHER Diabetes mellitus 19 FATHER Hypercholesterolemia 19 FATHER 19 MOTHER Hypertension 19 FATHER 19 MOTHER Neoplasm 19 MOTHER Psychosocial problem 19 FATHER 19 MOTHER No Pertinent Family Hx, Cancer, Diabetes, Hypertension PSH: -RIGHT KNEE SCOPE X 5 -LEFT KNEE SCOPE X 2 -NASAL FRACTURE REPAIR -COCCYX REMOVAL -LEFT NEPHRECTOMY FOR MALIGNANCY -LEFT MID ABDOMEN INCISIONAL HERNIA REPAIR -DRAINAGE OF ABDOMINAL WALL ABSCESS -MULTIPLE EGD'S AND COLONOSCOPIES Physical Exam Vital Signs Vital Signs - First Documented 04/30/20 10:04 Pulse 85 Resp 16 B/P (MAP) 137/87 (104) Pulse Ox 96 O2 Delivery Room Air Capillary Refill : Less Than 3 Seconds General Appearance: WD/WN, no apparent distress HEENT: PERRL/EOMI, normal ENT inspection Neck: other (2 cm incision on the posterior neck with copious purulent drainage. No significant inflammatory changes. 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 The central suture was removed to facilitate drainage. Dressing was applied and patient was prescribed antibiotics. Departure Impression Primary Impression: Infected incision Disposition: 01 HOME, SELF-CARE Condition: Improved Departure-Patient Inst. Decision time for Depature: 10:24 Referrals: CARMEN GIBBS MD (PCP/Family) Primary Care Physician Patient Instructions: Wound Infection Add. Discharge Instructions: Keep wound covered as long as it is draining. It may drain copious amounts of pus over the next few days. Change dressings at least daily but as often as necessary to remove the puslike drainage. You may shower but do not submerge until cleared by your surgeon. Please call Dr. Marroquin's office on Saturday to review culture results. Start your Bactrim antibiotic immediately and be sure to get 2 doses in today. Return to care if you have worsening symptoms, especially if you develop fever or chills. The pain may take several days to improve as the infection is treated with antibiotics. All discharge instructions reviewed with patient and/or family. Voiced under standing. Scripts Sulfamethoxazole/Trimethoprim (Bactrim Ds Tablet) 1 Each Tablet 1 EACH PO BID, #20 TAB Prov: IZABELA RENDON MD 04/30/20 Copy Copies To 1: LINDSEY MARROQUIN JOSHUA T MD Apr 30, 2020 10:27
== END 2020-04-30 10:36 | disposition home or self-care (01) ==
LOC: EDUNIT# 09:49 → ER 09:50
DX: T81.49XA Infection following a procedure, other surgical site, initial encounter (principal); G89.29 Other chronic pain; M54.9 Dorsalgia, unspecified; F32.9 Major depressive disorder, single episode, unspecified; J45.909 Unspecified asthma, uncomplicated; Z20.828 Contact with and (suspected) exposure to other viral communicable diseases; Z88.0 Allergy status to penicillin; Z88.5 Allergy status to narcotic agent; Z88.8 Allergy status to other drugs, medicaments and biological substances; Z85.528 Personal history of other malignant neoplasm of kidney; Z82.49 Family history of ischemic heart disease and other diseases of the circulatory system; Z80.9 Family history of malignant neoplasm, unspecified; Z83.3 Family history of diabetes mellitus; Z79.891 Long term (current) use of opiate analgesic; Z79.52 Long term (current) use of systemic steroids
CPT/HCPCS: 87070; 87205; 99282

== ENCOUNTER 2020-05-14 09:54 | Emergency (ER) | payer MEDICARE, MEDICAID ==
[~2020-05-14] VITALS: Ht 160 cm; Wt 118.1 kg
[2020-05-14] MEDS ORDERED: NS IV 1000 ML 1,000 ML IV SCH (12:07)
--- NOTE | 2020-05-14 12:07 | ED Abdominal Pain ---
General Chief Complaint: Abdominal/GI Problems Stated Complaint: VOMITING Nursing Triage Note: AMB TO ROOM WITH C/O OF VOMITING ONSET LAST NIGHT CONCERN HAD A CYST REMOVED FROM BACK OF NECK [address] MARROQUIN. HER MOTHER TOOK HER SUTURES OUT ON SATURDAY. SAW DR MARROQUIN ON SAT. PRIOR. CONCERN THAT IT MAY BE INFECTED. AND CAUSING HER VOMITING Sepsis Screen: No Definite Risk Source of Information: Patient Exam Limitations: No Limitations History of Present Illness Date Seen by Provider: May 14, 2020 Time Seen by Provider: 11:54 Initial Comments This is a healthy-appearing 35 yo female who presents to the ER with complaints of vomiting since last night. Concern she may have an infection from a cyst removal on the back of her neck, UTI, or small bowel obstruction. States she saw Dr. Marroquin on Saturday and she had no complaints at that time. However she's noted increasing pain in the back of her neck since her friend removed her remaining sutures yesterday. Allergies and Home Medications Allergies Coded Allergies: fentanyl (Verified Allergy, Unknown, 10/16/18) meperidine (Verified Allergy, Unknown, 10/16/18) penicillin G (Verified Allergy, Unknown, 10/16/18) vancomycin (Verified Adverse Reaction, Intermediate, severe itching, 10/26/19) Home Medications Acetaminophen 500 Mg Tablet, 1,000 MG PO Q8H PRN for PAIN-MILD (1-4), (Reported) Cyclobenzaprine HCl 10 Mg Tablet, 10 MG PO TID PRN for PAIN-MODERATE (5-7) Prescribed by: OSVALDO CALDWELL on 05/14/20 161 Diphenhydramine HCl 25 Mg Capsule, 25 MG PO HS PRN for SLEEP, (Reported) Estradiol 1 Mg Tablet, 1 MG PO HS, (Reported) Hydrocodone/Acetaminophen 1 Each Tablet, 2 EACH PO Q6H PRN for PAIN-MILD (1-4), (Reported) Hydrocodone/Acetaminophen 1 Each Tablet, 1 EACH PO Q6H PRN for PAIN-BREAKTHROUGH Prescribed by: OSVALDO CALDWELL on 05/14/20 1612 Methocarbamol 750 Mg Tablet, 750-1,500 MG PO Q6H PRN for PAIN-MILD (1-4) Prescribed by: GEORGES FINN on 02/10/20 1256 Methylprednisolone 4 Mg Tab.ds.pk, 4 MG PO UD PER DOSE PACK INSTRUCTIONS Prescribed by: GEORGES FINN on 02/10/20 1256 Multivitamin 1 Each Tablet, 1 EACH PO DAILY, (Reported) Ondansetron 8 Mg Tab.rapdis, 8 MG PO Q8H PRN for NAUSEA/VOMITING, (Reported) Ondansetron HCl 8 Mg Tablet, 8-16 MG PO Q6H PRN for NAUSEA-1ST LINE Prescribed by: MAKAYLA HAWKINS on 01/21/20 1621 Promethazine HCl 25 Mg Tablet, 25 MG PO Q6H PRN for NAUSEA/VOMITING Prescribed by: MAKAYLA HAWKINS on 01/21/20 1621 Promethazine HCl 25 Mg Tablet, 25 MG PO Q8H PRN for NAUSEA/VOMITING Prescribed by: OSVALDO CALDWELL on 05/14/20 1618 Ropinirole HCl 4 Mg Tablet, 4 MG PO HS, (Reported) Scopolamine 1 Each Patch.td72, 1 EACH TD Q72H, (Reported) Sertraline HCl 50 Mg Tablet, 50 MG PO HS, (Reported) Sulfamethoxazole/Trimethoprim 1 Each Tablet, 1 EACH PO BID Prescribed by: IZABELA MAC on 04/30/20 1027 Patient Home Medication List Home Medication List Reviewed: Yes Review of Systems Review of Systems Constitutional: see HPI EENTM: See HPI Respiratory: No Symptoms Reported Cardiovascular: No Symptoms Reported Gastrointestinal: See HPI Genitourinary: See HPI Musculoskeletal: no symptoms reported Skin: see HPI Psychiatric/Neurological: No Symptoms Reported Endocrine: No Symptoms Reported Hematologic/Lymphatic: No Symptoms Reported Past Nzvpxzl-Kcuduj-Pnegao Hx Patient Social History Alcohol Use: Denies Use Recreational Drug Use: No Type Used: Cigarettes 2nd Hand Smoke Exposure: No Recent Foreign Travel: No Contact w/Someone Who Travel: No Recent Infectious Disease Expo: No Recent Hopitalizations: No Immunizations Up To Date Tetanus Booster (TDap): Less than 5yrs PED Vaccines UTD: No Date of Pneumonia Vaccine: May 17, 2012 Date of Influenza Vaccine: Jul 03, 2012 Seasonal Allergies Seasonal Allergies: Yes (MILD) Past Medical History Surgeries: Yes (KNEE SCOPES X5, HERNIA X2, CYST REMOVED FROM NECK) Abdominal, Adenoidectomy, Appendectomy, Gallbladder, 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, Nephrectomy, Orthopedic, Tonsillectomy Respiratory: Yes Asthma Currently Using CPAP: No Currently Using BIPAP: No Cardiac: Yes Hypertension Neurological: Yes (RESTLESS LEG SYNDROME; CHRONIC DAILY HEADACHE COMPLAINTS) Headaches /Migraines 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: Yes (HX ENDOMETRIOSIS ) 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 Sexually Transmitted Disease: No HIV/AIDS: No Genitourinary: Yes (L KIDNEY REMOVED FOR TUMOR-MALIGNANT;) UTI-Chronic Gastrointestinal: Yes (CHRONIC ABDOMINAL PAIN AND NAUSEA/VOMTING COMPLAINTS) Abdominal Hernia, Gastroesophageal Reflux, Liver Disease/Jaundice, Obstructive Bowel, Pancreatitis, Polyps Musculoskeletal: Yes (COCCYX-REMOVED; MULTIPLE KNEE SURGERIES, ) Chronic Back Pain Endocrine: Yes (CHRONIC PANCREATITIS; OBESITY) HEENT: No Loss of Vision: Denies Hearing Impairment: Denies Cancer: Yes Kidney Did You Recieve Any Treatments: Yes What Type of Treatment Did You: Surgical Intervention Psychosocial: Yes Depression Integumentary: Yes Herpes Blood Disorders: No Adverse Reaction/Blood Tranf: No (N/A) Family Medical History Cardiovascular disease 19 FATHER Completed stroke 19 FATHER Diabetes mellitus 19 FATHER Hypercholesterolemia 19 FATHER 19 MOTHER Hypertension 19 FATHER 19 MOTHER Neoplasm 19 MOTHER Psychosocial problem 19 FATHER 19 MOTHER No Pertinent Family Hx, Cancer, Diabetes, Hypertension PSH: -RIGHT KNEE SCOPE X 5 -LEFT KNEE SCOPE X 2 -NASAL FRACTURE REPAIR -COCCYX REMOVAL -LEFT NEPHRECTOMY FOR MALIGNANCY -LEFT MID ABDOMEN INCISIONAL HERNIA REPAIR -DRAINAGE OF ABDOMINAL WALL ABSCESS -MULTIPLE EGD'S AND COLONOSCOPIES Physical Exam Vital Signs Vital Signs - First Documented 05/14/20 05/14/20 10:47 16:17 Temp 36.5 Pulse 75 Resp 18 B/P (MAP) 115/94 (101) Pulse Ox 98 O2 Delivery Room Air Capillary Refill : Less Than 3 Seconds Height/Weight/BMI Height: 5'3.00" Weight: 246lbs. 0oz. 111.155378ps; 46.00 BMI Method:Stated General Appearance: WD/WN, no apparent distress HEENT: PERRL/EOMI, TMs normal, pharynx normal, other (healing 1 cm incision on posterior neck, no erythema or swelling appreciated around the incision site) Neck: full range of motion, supple; No lymphadenopathy (R), No lymphadenopathy (L) Respiratory: lungs clear, normal breath sounds, no respiratory distress Cardiovascular: regular rate, rhythm, no murmur Gastrointestinal: normal bowel sounds, non tender, soft Extremities: normal range of motion, non-tender, normal inspection, no pedal edema, normal capillary refill Back: normal inspection Neurologic/Psychiatric: no motor/sensory deficits, alert, normal mood/affect, oriented x 3 Skin: normal color, warm/dry Progress/Results/Core Measures Results/Orders Lab Results Laboratory Tests Test 05/14/20 12:59 05/14/20 13:43 05/14/20 15:26 Range/Units White Blood Count 7.9 4.3-11.0 10^3/uL Red Blood Count 4.69 3.80-5.11 10^6/uL Hemoglobin 12.7 11.5-16.0 g/dL Hematocrit 41 35-52 % Mean Corpuscular Volume 88 80-99 fL Mean Corpuscular Hemoglobin 27 25-34 pg Mean Corpuscular Hemoglobin Concent 31 L 32-36 g/dL Red Cell Distribution Width 13.5 10.0-14.5 % Platelet Count 244 130-400 10^3/uL Mean Platelet Volume 9.5 9.0-12.2 fL Immature Granulocyte % (Auto) 0 % Neutrophils (%) (Auto) 56 42-75 % Lymphocytes (%) (Auto) 35 12-44 % Monocytes (%) (Auto) 4 0-12 % Eosinophils (%) (Auto) 4 0-10 % Basophils (%) (Auto) 1 0-10 % Neutrophils # (Auto) 4.4 1.8-7.8 10^3/uL Lymphocytes # (Auto) 2.8 1.0-4.0 10^3/uL Monocytes # (Auto) 0.4 0.0-1.0 10^3/uL Eosinophils # (Auto) 0.3 0.0-0.3 10^3/uL Basophils # (Auto) 0.0 0.0-0.1 10^3/uL Immature Granulocyte # (Auto) 0.0 0.0-0.1 10^3/uL Sodium Level 140 135-145 MMOL/L Potassium Level 4.2 3.6-5.0 MMOL/L Chloride Level 103 98-107 MMOL/L Carbon Dioxide Level 26 21-32 MMOL/L Anion Gap 11 5-14 MMOL/L Blood Urea Nitrogen 10 7-18 MG/DL Creatinine 0.80 0.60-1.30 MG/DL Estimat Glomerular Filtration Rate > 60 BUN/Creatinine Ratio 13 Glucose Level 100 70-105 MG/DL Calcium Level 9.3 8.5-10.1 MG/DL Corrected Calcium 9.1 8.5-10.1 MG/DL Total Bilirubin 0.3 0.1-1.0 MG/DL Aspartate Amino Transf (AST/SGOT) 56 H 5-34 U/L Alanine Aminotransferase (ALT/SGPT) 66 H 0-55 U/L Alkaline Phosphatase 58 40-136 U/L Troponin I 0.029 H < 0.028 <0.028 NG/ML Total Protein 7.6 6.4-8.2 GM/DL Albumin 4.2 3.2-4.5 GM/DL Lipase 61 8-78 U/L Urine Color YELLOW Urine Clarity CLEAR Urine pH 6.0 5-9 Urine Specific [place] 1.015 L 1.016-1.022 Urine Protein NEGATIVE NEGATIVE Urine Glucose (UA) NEGATIVE NEGATIVE Urine Ketones NEGATIVE NEGATIVE Urine Nitrite NEGATIVE NEGATIVE Urine Bilirubin NEGATIVE NEGATIVE Urine Urobilinogen 0.2 < = 1.0 MG/DL Urine Leukocyte Esterase NEGATIVE NEGATIVE Urine RBC (Auto) NEGATIVE NEGATIVE Urine RBC NONE /HPF Urine WBC 0-2 /HPF Urine Squamous Epithelial Cells 5-10 /HPF Urine Crystals NONE /LPF Urine Bacteria TRACE /HPF Urine Casts NONE /LPF Urine Mucus NEGATIVE /LPF Urine Culture Indicated NO My Orders Orders - OSVALDO CALDWELL LEASING PROFESSIONAL Cbc With Automated Diff (05/14/20 12:07) Comprehensive Metabolic Panel (05/14/20 12:07) Lipase (05/14/20 12:07) Troponin I (05/14/20 12:07) Ed Iv/Invasive Line Start (05/14/20 12:07) Ns Iv 1000 Ml (Sodium Chloride 0.9%) (05/14/20 12:07) Promethazine Injection (Phenergan Injec (05/14/20 12:15) Ua Culture If Indicated (05/14/20 12:07) Morphine Injection (Morphine Injection (05/14/20 12:18) Diphenhydramine Injection (Benadryl Inje (05/14/20 13:15) Acute Abd Series (05/14/20 14:18) Troponin I (05/14/20 14:18) Hydrocodone/Apap 5/325 Tablet (Lortab 5 (05/14/20 15:15) Cyclobenzaprine Tablet (Flexeril Tablet) (05/14/20 15:15) Medications Given in ED Current Medications Medications Dose Ordered Sig/Neal Route Start Time Stop Time Status Last Admin Dose Admin Acetaminophen/ Hydrocodone Bitart 1 tab ONCE ONCE PO 05/14/20 15:15 05/14/20 15:16 DC 05/14/20 15:47 1 TAB Cyclobenzaprine HCl 5 mg ONCE ONCE PO 05/14/20 15:15 05/14/20 15:16 DC 05/14/20 15:47 10 MG Diphenhydramine HCl 25 mg ONCE ONCE IVP 05/14/20 13:15 05/14/20 13:17 DC 05/14/20 13:27 25 MG Promethazine HCl 25 mg ONCE ONCE IVP 05/14/20 12:15 05/14/20 12:16 DC 05/14/20 12:46 25 MG Vital Signs/I&O 05/14/20 05/14/20 10:47 16:17 Temp 36.5 Pulse 75 64 Resp 18 18 B/P (MAP) 115/94 (101) 141/93 Pulse Ox 98 96 O2 Delivery Room Air 2 Blood Pressure Mean: 101 Progress Progress Note : Progress Note Ordered basic labs, no elevation in white count noted, small bump in troponin- will order two hour repeat. Liver enzymes elevated, however, lower than her baseline. Ordered acute abdominal series. No abnormal bowel gas noted. No bowel obstruction appreciated. No emesis appreciated throughout ED course. However, did report persistent nausea until she received Phenergan. 2 hour repeat of Troponin is neg. Discussed using Hydrocodone and Flexeril for neck tenderness and instructed to keep follow up with Dr. Marroquin on Saturday as previously scheduled. Reviewed discharge instructions, she is agreeable with POC. Also discussed no driving while taking Flexeril and Hydrocodone, verbalized understanding. Departure Impression Primary Impression: Nausea and vomiting Additional Impression: Neck pain Disposition: HOME, SELF-CARE Condition: Improved Departure-Patient Inst. Referrals: CARMEN GIBBS MD (PCP/Family) Primary Care Physician Patient Instructions: Nausea and Vomiting, Adult Add. Discharge Instructions: Plan: 1. Discharge home. Keep follow up with Dr. Marroquin as scheduled on SaturdayMay 17. 2. Use Zofran as needed for nausea as directed at home. 3. May take Phenergan 25mg by mouth every 8 hours as needed for nausea. 4. May take Lortab 5/325mg by mouth every 6 hours as needed for breakthrough pain. 5. Flexeril 10mg by mouth three times a day as needed for neck pain. 6. Return for any new, worsening, or concerning symptoms. All discharge instructions reviewed with patient and/or family. Voiced understanding. Scripts Promethazine HCl (Promethazine Tablet) 25 Mg Tablet 25 MG PO Q8H PRN for NAUSEA/VOMITING, #20 TAB 0 Refills Prov: OSVALDO CALDWELL LEASING PROFESSIONAL 05/14/20 Cyclobenzaprine HCl (Cyclobenzaprine HCl) 10 Mg Tablet 10 MG PO TID PRN for PAIN-MODERATE (5-7), #15 TAB 0 Refills Prov: OSVALDO CALDWELL LEASING PROFESSIONAL 05/14/20 Hydrocodone/Acetaminophen (Hydrocodone-Acetamin 5-325 mg) 1 Each Tablet 1 EACH PO Q6H PRN for PAIN-BREAKTHROUGH, #10 TAB 0 Refills Prov: OSVALDO CALDWELL LEASING PROFESSIONAL 05/14/20 OSVALDO CALDWELL APRN May 14, 2020 12:07
[2020-05-14] MEDS ORDERED: PROMETHAZINE INJ 25 MG/ML (PHENERGAN) AMP IVP ONE (12:15)
[2020-05-14] MEDS ORDERED: morphine INJ 10 MG/ML 1ML (SYR OR VIAL) IVP STA (12:18)
[2020-05-14 13:06] LABS: BASOPHILS % (AUTO) 1 % (0-10); EOSINOPHILS # (AUTO) 0.3 10^3/uL (0.0-0.3); EOSINOPHILS % (AUTO) 4 % (0-10); HEMATOCRIT 41 % (35-52); HEMOGLOBIN 12.7 g/dL (11.5-16.0); LYMPHOCYTES # (AUTO) 2.8 10^3/uL (1.0-4.0); LYMPHOCYTES % (AUTO) 35 % (12-44); MEAN CORPUSCULAR HEMOGLOBIN 27 pg (25-34); MEAN CORPUSCULAR HGB CONC 31 g/dL (32-36); MEAN CORPUSCULAR VOLUME 88 fL (80-99); MEAN PLATELET VOLUME 9.5 fL (9.0-12.2); MONOCYTES # (AUTO) 0.4 10^3/uL (0.0-1.0); MONOCYTES % (AUTO) 4 % (0-12); NEUTROPHILS # (AUTO) 4.4 10^3/uL (1.8-7.8); NEUTROPHILS % (AUTO) 56 % (42-75); PLATELET COUNT 244 10^3/uL (130-400); WHITE BLOOD COUNT 7.9 10^3/uL (4.3-11.0)
[2020-05-14] MEDS ORDERED: diphenhydrAMINE 50 MG/ML INJ (BENADRYL) IVP ONE (13:15)
[2020-05-14 13:17] LABS: ALBUMIN 4.2 GM/DL (3.2-4.5); CHLORIDE 103 MMOL/L (98-107); POTASSIUM 4.2 MMOL/L (3.6-5.0); SODIUM 140 MMOL/L (135-145)
[2020-05-14 13:19] LABS: CALCIUM 9.3 MG/DL (8.5-10.1)
[2020-05-14 13:20] LABS: GLUCOSE 100 MG/DL (70-105); TOTAL PROTEIN 7.6 GM/DL (6.4-8.2)
[2020-05-14 13:21] LABS: BILIRUBIN,TOTAL 0.3 MG/DL (0.1-1.0); CARBON DIOXIDE 26 MMOL/L (21-32)
[2020-05-14 13:23] LABS: ALKALINE PHOSPHATASE 58 U/L (40-136); GFR ESTIMATED > 60
[2020-05-14 13:24] LABS: BUN/CREATININE RATIO 13
[2020-05-14 13:26] LABS: ALANINE AMINOTRANSFERASE 66 U/L (0-55)
[2020-05-14 13:27] LABS: LIPASE 61 U/L (8-78)
[2020-05-14 13:57] LABS: BILIRUBIN,URINE NEGATIVE (NEGATIVE); CLARITY,URINE CLEAR; COLOR,URINE YELLOW; GLUCOSE, URINE (UA) NEGATIVE (NEGATIVE); KETONES,URINE NEGATIVE (NEGATIVE); LEUKOCYTE ESTERASE ,URINE NEGATIVE (NEGATIVE); NITRITE,URINE NEGATIVE (NEGATIVE); PROTEIN,URINE NEGATIVE (NEGATIVE)
[2020-05-14 14:15] LABS: WBC,URINE 0-2 /HPF
[2020-05-14 14:16] LABS: BACTERIA,URINE TRACE /HPF
--- NOTE | 2020-05-14 14:45 | Diagnostic Imaging Report ---
EXAMINATION: Abdominal series and chest radiograph HISTORY: Abdominal pain COMPARISON: 10/17/2019 FINDINGS: Surgical clips are seen in the abdomen. No evidence for obstruction. No free air is seen. The lungs are clear. No edema. No pneumonia. No pleural effusion. No pneumothorax. Heart is normal in size. IMPRESSION: 1. Clear lungs. 2. Normal bowel gas pattern. Dictated by: Dictated on workstation # [id number]
[2020-05-14] MEDS ORDERED: CYCLOBENZAPRINE 10 MG (FLEXERIL) TAB PO ONE (15:15)
[2020-05-14] MEDS ORDERED: HYDROcodone/APAP 5 MG/325 MG (LORTAB) TAB PO ONE (15:15)
[2020-05-14] MEDS ORDERED: ACHD5005 PO (16:12)
[2020-05-14] MEDS ORDERED: CYCL10TA9 PO (16:12)
[2020-05-14 16:17] VITALS: BP 141/93
[2020-05-14] MEDS ORDERED: PROM25TA14 PO (16:18)
== END 2020-05-14 16:17 | disposition home or self-care (01) ==
LOC: EDUNIT# 09:54 → ER 09:55
DX: R11.2 Nausea with vomiting, unspecified (principal); M54.2 Cervicalgia; J45.909 Unspecified asthma, uncomplicated; G89.29 Other chronic pain; M54.9 Dorsalgia, unspecified; F32.9 Major depressive disorder, single episode, unspecified; Z82.49 Family history of ischemic heart disease and other diseases of the circulatory system; Z83.3 Family history of diabetes mellitus; Z80.9 Family history of malignant neoplasm, unspecified; Z85.528 Personal history of other malignant neoplasm of kidney; Z88.0 Allergy status to penicillin; Z88.5 Allergy status to narcotic agent; Z88.8 Allergy status to other drugs, medicaments and biological substances; Z79.891 Long term (current) use of opiate analgesic; Z79.52 Long term (current) use of systemic steroids
CPT/HCPCS: 36415; 74022; 80053; 81000; 83690; 84484; 85025

== ENCOUNTER 2020-06-18 15:47 | Emergency (ER) | payer MEDICARE, MEDICAID ==
[~2020-06-18] VITALS: Ht 154 cm; Wt 122.0 kg
[2020-06-18] MEDS ORDERED: PROCHLORPERAZINE 10 MG/2ML INJ (COMPAZINE) IV ONE (16:45)
[2020-06-18] MEDS ORDERED: diphenhydrAMINE 50 MG/ML INJ (BENADRYL) IM ONE (16:45)
[2020-06-18 17:04] LABS: HEMOGLOBIN 14.5 g/dL (11.5-16.0); MEAN PLATELET VOLUME 9.3 fL (9.0-12.2); WHITE BLOOD COUNT 14.7 10^3/uL (4.3-11.0)
[2020-06-18 17:06] VITALS: BP 0/0
--- NOTE | 2020-06-18 17:06 | NUR ---
PT REPORTED SHE HAD A FAMILY EMERGENCY ET HAND TO LEAVE. RISKS ET BENEFITS OF LEAVING AMA DISCUSSED W/ PT. UNDERSTANDING VOICED. AMA PAPERWORK SIGNED BY PT.
[2020-06-18 17:10] LABS: BILIRUBIN,URINE NEGATIVE (NEGATIVE); CLARITY,URINE SL CLOUDY; COLOR,URINE YELLOW; GLUCOSE, URINE (UA) NEGATIVE (NEGATIVE); KETONES,URINE NEGATIVE (NEGATIVE); LEUKOCYTE ESTERASE ,URINE NEGATIVE (NEGATIVE); NITRITE,URINE NEGATIVE (NEGATIVE); PH,URINE 5.5 (5-9); PROTEIN,URINE 1+ (NEGATIVE)
--- NOTE | 2020-06-18 17:11 | ED Abdominal Pain ---
General Chief Complaint: Abdominal/GI Problems Stated Complaint: N/V,RLQ Nursing Triage Note: PT TO ED W/ C/O CHRONIC ABD PAIN, LT FLANK PAIN, INTERMITTENT N/V ONSET AFTER HAVING AN "INJECTION FOR PAIN IN HER PANCREAS" X6 DAYS AGO. PT REPORTS SHE WAS TOLD THIS MAY BE A SIDE EFFECT BUT HAS NOT IMPROVED. NO OTHER C/O VOICED Sepsis Screen: No Definite Risk History of Present Illness Date Seen by Provider: Jun 18, 2020 Time Seen by Provider: 16:30 Initial Comments Patient is a 35-year-old female with a long history of chronic abdominal pain who presents to the emergency department today with a chief complaint of nausea. Patient states that she had an endoscopic ultrasound done on June 13 for her chronic pancreatitis at [facility]. Patient states since that time she has been having increasing nausea. Patient denies fevers, chills, productive cough. She states that she is having some right flank pain in the area of her single functioning kidney. Patient states she is also having urinary frequency without dysuria or urgency. Patient denies any diarrhea, black or bloody stools. Patient states she has been alternating Zofran and Phenergan at home without relief of her symptoms. All other review of systems reviewed and negative except as stated. Timing/Duration: 2-3 Days Severity/Quality: Moderate Location: RLQ Radiation: No Radiation Activities at Onset: None Associated Symptoms: Nausea/Vomiting Allergies and Home Medications Allergies Coded Allergies: fentanyl (Verified Allergy, Unknown, 10/16/18) meperidine (Verified Allergy, Unknown, 10/16/18) penicillin G (Verified Allergy, Unknown, 10/16/18) vancomycin (Verified Adverse Reaction, Intermediate, severe itching, 10/26/19) Home Medications Acetaminophen 500 Mg Tablet, 1,000 MG PO Q8H PRN for PAIN-MILD (1-4), (Reported) Cyclobenzaprine HCl 10 Mg Tablet, 10 MG PO TID PRN for PAIN-MODERATE (5-7) Prescribed by: OSVALDO CALDWELL on 05/14/20 1612 Diphenhydramine HCl 25 Mg Capsule, 25 MG PO HS PRN for SLEEP, (Reported) Estradiol 1 Mg Tablet, 1 MG PO HS, (Reported) Hydrocodone/Acetaminophen 1 Each Tablet, 2 EACH PO Q6H PRN for PAIN-MILD (1-4), (Reported) Hydrocodone/Acetaminophen 1 Each Tablet, 1 EACH PO Q6H PRN for PAIN-BREAKTHROUGH Prescribed by: OSVALDO CALDWELL on 05/14/20 1612 Methocarbamol 750 Mg Tablet, 750-1,500 MG PO Q6H PRN for PAIN-MILD (1-4) Prescribed by: GEORGES FINN on 02/10/20 1256 Methylprednisolone 4 Mg Tab.ds.pk, 4 MG PO UD PER DOSE PACK INSTRUCTIONS Prescribed by: GEORGES FINN on 02/10/20 1256 Multivitamin 1 Each Tablet, 1 EACH PO DAILY, (Reported) Ondansetron 8 Mg Tab.rapdis, 8 MG PO Q8H PRN for NAUSEA/VOMITING, (Reported) Ondansetron HCl 8 Mg Tablet, 8-16 MG PO Q6H PRN for NAUSEA-1ST LINE Prescribed by: MAKAYLA HAWKINS on 01/21/20 162 Promethazine HCl 25 Mg Tablet, 25 MG PO Q6H PRN for NAUSEA/VOMITING Prescribed by: MAKAYLA HAWKINS on 01/21/20 162 Promethazine HCl 25 Mg Tablet, 25 MG PO Q8H PRN for NAUSEA/VOMITING Prescribed by: OSVALDO CALDWELL on 05/14/20 1618 Ropinirole HCl 4 Mg Tablet, 4 MG PO HS, (Reported) Scopolamine 1 Each Patch.td72, 1 EACH TD Q72H, (Reported) Sertraline HCl 50 Mg Tablet, 50 MG PO HS, (Reported) Sulfamethoxazole/Trimethoprim 1 Each Tablet, 1 EACH PO BID Prescribed by: IZABELA MAC on 04/30/20 1027 Patient Home Medication List Home Medication List Reviewed: Yes Review of Systems Review of Systems Constitutional: see HPI EENTM: No Symptoms Reported Respiratory: No Symptoms Reported Cardiovascular: No Symptoms Reported Gastrointestinal: Abdominal Pain, Nausea, Poor Appetite Genitourinary: Denies Burning, Denies Discharge, Denies Drainage; Frequency, Flank Pain; Denies Incontinence, Denies Urgency Musculoskeletal: no symptoms reported Skin: no symptoms reported All Other Systems Reviewed Negative Unless Noted: Yes Past Ziuwvcw-Nglkmp-Myhosl Hx Patient Social History Alcohol Use: Denies Use Recreational Drug Use: No Type Used: Cigarettes 2nd Hand Smoke Exposure: No Recent Foreign Travel: No Contact w/Someone Who Travel: No Recent Infectious Disease Expo: No Recent Hopitalizations: No Physical Abuse: No Sexual Abuse: No Mistreated: No Fear: No Immunizations Up To Date Tetanus Booster (TDap): Less than 5yrs PED Vaccines UTD: No Date of Pneumonia Vaccine: May 17, 2012 Date of Influenza Vaccine: Jul 03, 2012 Seasonal Allergies Seasonal Allergies: Yes (MILD) Past Medical History Surgeries: Yes (KNEE SCOPES X5, HERNIA X2, CYST REMOVED FROM NECK) Abdominal, Adenoidectomy, Appendectomy, Gallbladder, 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, Nephrectomy, Orthopedic, Tonsillectomy Respiratory: Yes Asthma Currently Using CPAP: No Currently Using BIPAP: No Cardiac: Yes Hypertension Neurological: Yes (RESTLESS LEG SYNDROME; CHRONIC DAILY HEADACHE COMPLAINTS) Headaches /Migraines 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: Yes (HX ENDOMETRIOSIS ) 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 Transmitted Disease: No HIV/AIDS: No Genitourinary: Yes (L KIDNEY REMOVED FOR TUMOR-MALIGNANT;) UTI-Chronic Gastrointestinal: Yes (CHRONIC ABDOMINAL PAIN AND NAUSEA/VOMTING COMPLAINTS) Abdominal Hernia, Gastroesophageal Reflux, Liver Disease/Jaundice, Obstructive Bowel, Pancreatitis, Polyps Musculoskeletal: Yes (COCCYX-REMOVED; MULTIPLE KNEE SURGERIES, ) Chronic Back Pain Endocrine: Yes (CHRONIC PANCREATITIS; OBESITY) HEENT: No Loss of Vision: Denies Hearing Impairment: Denies Cancer: Yes Kidney Did You Recieve Any Treatments: Yes What Type of Treatment Did You: Surgical Intervention Psychosocial: Yes Depression Integumentary: Yes Herpes Blood Disorders: No Adverse Reaction/Blood Tranf: No (N/A) Family Medical History Cardiovascular disease 19 FATHER Completed stroke 19 FATHER Diabetes mellitus 19 FATHER Hypercholesterolemia 19 FATHER 19 MOTHER Hypertension 19 FATHER 19 MOTHER Neoplasm 19 MOTHER Psychosocial problem 19 FATHER 19 MOTHER No Pertinent Family Hx, Cancer, Diabetes, Hypertension PSH: -RIGHT KNEE SCOPE X 5 -LEFT KNEE SCOPE X 2 -NASAL FRACTURE REPAIR -COCCYX REMOVAL -LEFT NEPHRECTOMY FOR MALIGNANCY -LEFT MID ABDOMEN INCISIONAL HERNIA REPAIR -DRAINAGE OF ABDOMINAL WALL ABSCESS -MULTIPLE EGD'S AND COLONOSCOPIES Physical Exam Vital Signs Vital Signs - First Documented 06/18/20 16:11 Temp 36.1 Pulse 78 Resp 20 B/P (MAP) 139/93 (108) Pulse Ox 97 O2 Delivery Room Air Capillary Refill : Less Than 3 Seconds Height/Weight/BMI Height: 5'3.00" Weight: 246lbs. 0oz. 111.166258je; 51.00 BMI Method:Stated General Appearance: WD/WN, no apparent distress HEENT: PERRL/EOMI Neck: full range of motion Respiratory: normal breath sounds, no respiratory distress, no accessory muscle use Cardiovascular: regular rate, rhythm Gastrointestinal: normal bowel sounds, non tender, soft Extremities: non-tender, normal inspection, no pedal edema Back: normal inspection Neurologic/Psychiatric: alert, normal mood/affect, oriented x 3 Skin: normal color, warm/dry Progress/Results/Core Measures Results/Orders Lab Results Laboratory Tests Test 06/18/20 16:51 06/18/20 16:55 Range/Units White Blood Count 14.7 H 4.3-11.0 10^3/uL Red Blood Count 5.22 H 3.80-5.11 10^6/uL Hemoglobin 14.5 11.5-16.0 g/dL Hematocrit 44 35-52 % Mean Corpuscular Volume 85 80-99 fL Mean Corpuscular Hemoglobin 28 25-34 pg Mean Corpuscular Hemoglobin Concent 33 32-36 g/dL Red Cell Distribution Width 13.4 10.0-14.5 % Platelet Count 328 130-400 10^3/uL Mean Platelet Volume 9.3 9.0-12.2 fL My Orders Orders - GEO BORJA MD Cbc No Diff (06/18/20 16:41) Comprehensive Metabolic Panel (06/18/20 16:41) Lipase (06/18/20 16:41) Ua Culture If Indicated (06/18/20 16:41) Prochlorperazine Injection (Compazine In (06/18/20 16:45) Diphenhydramine Injection (Benadryl Inje (06/18/20 16:45) Medications Given in ED Current Medications Medications Dose Ordered Sig/Neal Route Start Time Stop Time Status Last Admin Dose Admin Diphenhydramine HCl 50 mg ONCE ONCE IM 06/18/20 16:45 06/18/20 16:46 DC 06/18/20 16:59 50 MG Prochlorperazine Edisylate 10 mg ONCE ONCE IV 06/18/20 16:45 06/18/20 16:46 DC 06/18/20 16:57 10 MG Vital Signs/I&O 06/18/20 16:11 Temp 36.1 Pulse 78 Resp 20 B/P (MAP) 139/93 (108) Pulse Ox 97 O2 Delivery Room Air Blood Pressure Mean: 108 Progress Progress Note : Time: 17:07 Progress Note Notified by the patient at this time that she wishes to leave AGAINST MEDICAL ADVICE. The patient states that she has had a family emergency and elects to go before all of her labs have been reviewed and evaluated. Patient is counseled on the benefits of staying and declines. Patient signed an AMA form. Departure Impression Primary Impression: Nausea Additional Impression: Chronic abdominal pain Disposition: HOME, SELF-CARE Condition: Against Medical Advice Departure-Patient Inst. Decision time for Depature: 17:09 Referrals: CARMEN GIBBS MD (PCP/Family) Primary Care Physician GEO BORJA MD Jun 18, 2020 17:11
[2020-06-18 17:15] LABS: ALBUMIN 4.7 GM/DL (3.2-4.5)
[2020-06-18 17:16] LABS: CHLORIDE 103 MMOL/L (98-107); POTASSIUM 4.1 MMOL/L (3.6-5.0); SODIUM 140 MMOL/L (135-145)
[2020-06-18 17:17] LABS: CALCIUM 9.7 MG/DL (8.5-10.1)
[2020-06-18 17:17] LABS: BACTERIA,URINE MODERATE /HPF
[2020-06-18 17:18] LABS: GLUCOSE 111 MG/DL (70-105); TOTAL PROTEIN 8.6 GM/DL (6.4-8.2)
[2020-06-18 17:19] LABS: CARBON DIOXIDE 26 MMOL/L (21-32)
[2020-06-18 17:20] LABS: BILIRUBIN,TOTAL 0.3 MG/DL (0.1-1.0)
[2020-06-18 17:21] LABS: ALKALINE PHOSPHATASE 81 U/L (40-136)
[2020-06-18 17:22] LABS: CREATININE SERUM 0.91 MG/DL (0.60-1.30); GFR ESTIMATED > 60
[2020-06-18 17:23] LABS: BUN/CREATININE RATIO 22
[2020-06-18 17:25] LABS: ALANINE AMINOTRANSFERASE 83 U/L (0-55); LIPASE 81 U/L (8-78)
== END 2020-06-18 17:06 | disposition left against medical advice (07) ==
LOC: EDUNIT# 15:47 → ER 15:49
DX: R11.0 Nausea (principal); R10.31 Right lower quadrant pain; F32.9 Major depressive disorder, single episode, unspecified; J45.909 Unspecified asthma, uncomplicated; G89.29 Other chronic pain; M54.9 Dorsalgia, unspecified; Z88.8 Allergy status to other drugs, medicaments and biological substances; Z88.0 Allergy status to penicillin; Z88.5 Allergy status to narcotic agent; Z85.528 Personal history of other malignant neoplasm of kidney; Z82.49 Family history of ischemic heart disease and other diseases of the circulatory system; Z83.3 Family history of diabetes mellitus; Z80.9 Family history of malignant neoplasm, unspecified; Z79.52 Long term (current) use of systemic steroids; Z79.891 Long term (current) use of opiate analgesic
CPT/HCPCS: 36415; 80053; 81000; 83690; 85027; 87088

== ENCOUNTER 2020-06-23 12:10 | Emergency (ER) | payer MEDICARE, MEDICAID ==
[~2020-06-23] VITALS: Ht 157.4 cm; Wt 121.5 kg
--- NOTE | 2020-06-23 13:29 | ED Respiratory ---
General Chief Complaint: Respiratory Problems Stated Complaint: POST OP SOA Nursing Triage Note: Ambulatory to 8. Pt reports having a procedure this morning in [place] by Dr. Lima. Pt reports procedure was "fluoro guidance for spine." Pt reports SOB, pain that radiates to the back, and being unable to take a deep breath since procedure. Pt reports symptoms began on ride back from [place]. Source: patient Exam Limitations: no limitations History of Present Illness Date Seen by Provider: Jun 23, 2020 Time Seen by Provider: 13:29 Initial Comments Patient had a injection in the right chest wall this morning to help with her thoracic outlet syndrome. Shortly after that she developed shortness of breath. Timing/Duration: just prior to arrival, getting worse Associated Symptoms: denies symptoms Allergies and Home Medications Allergies Coded Allergies: fentanyl (Verified Allergy, Unknown, 10/16/18) meperidine (Verified Allergy, Unknown, 10/16/18) penicillin G (Verified Allergy, Unknown, 10/16/18) vancomycin (Verified Adverse Reaction, Intermediate, severe itching, 10/26/19) Home Medications Acetaminophen 500 Mg Tablet, 1,000 MG PO Q8H PRN for PAIN-MILD (1-4), (Reported) Cyclobenzaprine HCl 10 Mg Tablet, 10 MG PO TID PRN for PAIN-MODERATE (5-7) Prescribed by: OSVALDO CALDWELL on 05/14/20 161 Diphenhydramine HCl 25 Mg Capsule, 25 MG PO HS PRN for SLEEP, (Reported) Estradiol 1 Mg Tablet, 1 MG PO HS, (Reported) Hydrocodone/Acetaminophen 1 Each Tablet, 2 EACH PO Q6H PRN for PAIN-MILD (1-4), (Reported) Hydrocodone/Acetaminophen 1 Each Tablet, 1 EACH PO Q6H PRN for PAIN-BREAKTHROUGH Prescribed by: OSVALDO CALDWELL on 05/14/20 1612 Methocarbamol 750 Mg Tablet, 750-1,500 MG PO Q6H PRN for PAIN-MILD (1-4) Prescribed by: GEORGES FINN on 02/10/20 1256 Methylprednisolone 4 Mg Tab.ds.pk, 4 MG PO UD PER DOSE PACK INSTRUCTIONS Prescribed by: GEORGES FINN on 02/10/20 1256 Multivitamin 1 Each Tablet, 1 EACH PO DAILY, (Reported) Ondansetron 8 Mg Tab.rapdis, 8 MG PO Q8H PRN for NAUSEA/VOMITING, (Reported) Ondansetron HCl 8 Mg Tablet, 8-16 MG PO Q6H PRN for NAUSEA-1ST LINE Prescribed by: MAKAYLA HAWKINS on 01/21/20 1621 Promethazine HCl 25 Mg Tablet, 25 MG PO Q6H PRN for NAUSEA/VOMITING Prescribed by: MAKAYLA HAWKINS on 01/21/20 1621 Promethazine HCl 25 Mg Tablet, 25 MG PO Q8H PRN for NAUSEA/VOMITING Prescribed by: OSVALDO CALDWELL on 05/14/20 1618 Ropinirole HCl 4 Mg Tablet, 4 MG PO HS, (Reported) Scopolamine 1 Each Patch.td72, 1 EACH TD Q72H, (Reported) Sertraline HCl 50 Mg Tablet, 50 MG PO HS, (Reported) Sulfamethoxazole/Trimethoprim 1 Each Tablet, 1 EACH PO BID Prescribed by: IZABELA MAC on 04/30/20 1027 Patient Home Medication List Home Medication List Reviewed: Yes Review of Systems Review of Systems Constitutional: see HPI EENTM: see HPI Respiratory: no symptoms reported Cardiovascular: no symptoms reported Genitourinary: no symptoms reported Musculoskeletal: no symptoms reported Skin: no symptoms reported Psychiatric/Neurological: No Symptoms Reported Hematologic/Lymphatic: No Symptoms Reported Immunological/Allergic: no symptoms reported Past Tbmhqla-Falctf-Ubbnom Hx Patient Social History Alcohol Use: Denies Use Recreational Drug Use: No Smoking Status: Never a Smoker Type Used: Cigarettes 2nd Hand Smoke Exposure: No Recent Foreign Travel: No Contact w/Someone Who Travel: No Recent Infectious Disease Expo: No Recent Hopitalizations: No Immunizations Up To Date Tetanus Booster (TDap): Less than 5yrs PED Vaccines UTD: No Date of Pneumonia Vaccine: May 17, 2012 Date of Influenza Vaccine: Jul 03, 2012 Seasonal Allergies Seasonal Allergies: Yes (MILD) Past Medical History Surgeries: Yes (KNEE SCOPES X5, HERNIA X2, CYST REMOVED FROM NECK) Abdominal, Adenoidectomy, Appendectomy, Gallbladder, 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, Nephrectomy, Orthopedic, Tonsillectomy Respiratory: Yes Asthma Currently Using CPAP: No Currently Using BIPAP: No Cardiac: Yes Hypertension Neurological: Yes (RESTLESS LEG SYNDROME; CHRONIC DAILY HEADACHE COMPLAINTS) Headaches /Migraines 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: Yes (HX ENDOMETRIOSIS ) 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 Sexually Transmitted Disease: No HIV/AIDS: No Genitourinary: Yes (L KIDNEY REMOVED FOR TUMOR-MALIGNANT;) UTI-Chronic Gastrointestinal: Yes (CHRONIC ABDOMINAL PAIN AND NAUSEA/VOMTING COMPLAINTS) Abdominal Hernia, Gastroesophageal Reflux, Liver Disease/Jaundice, Obstructive Bowel, Pancreatitis, Polyps Musculoskeletal: Yes (COCCYX-REMOVED; MULTIPLE KNEE SURGERIES, ) Chronic Back Pain Endocrine: Yes (CHRONIC PANCREATITIS; OBESITY) HEENT: No Loss of Vision: Denies Hearing Impairment: Denies Cancer: Yes Kidney Did You Recieve Any Treatments: Yes What Type of Treatment Did You: Surgical Intervention Psychosocial: Yes Depression Integumentary: Yes Herpes Blood Disorders: No Adverse Reaction/Blood Tranf: No (N/A) Family Medical History Cardiovascular disease 19 FATHER Completed stroke 19 FATHER Diabetes mellitus 19 FATHER Hypercholesterolemia 19 FATHER 19 MOTHER Hypertension 19 FATHER 19 MOTHER Neoplasm 19 MOTHER Psychosocial problem 19 FATHER 19 MOTHER No Pertinent Family Hx, Cancer, Diabetes, Hypertension PSH: -RIGHT KNEE SCOPE X 5 -LEFT KNEE SCOPE X 2 -NASAL FRACTURE REPAIR -COCCYX REMOVAL -LEFT NEPHRECTOMY FOR MALIGNANCY -LEFT MID ABDOMEN INCISIONAL HERNIA REPAIR -DRAINAGE OF ABDOMINAL WALL ABSCESS -MULTIPLE EGD'S AND COLONOSCOPIES Physical Exam Vital Signs - First Documented 06/23/20 12:40 Temp 36.0 Pulse 96 Resp 23 B/P (MAP) 130/89 (103) Pulse Ox 97 O2 Delivery Room Air Capillary Refill : Less Than 3 Seconds Height: 5'3.00" Weight: 246lbs. 0oz. 111.430762ux; 49.00 BMI Method:Stated General Appearance: WD/WN, no apparent distress, other (She is sleeping with a respiratory rate less than 20 upon my arrival into the room. Heart rate is 80s, oxygen saturation 96%. Once I awaken her and ask her what trouble she is having she begins breathing with a respiratory rate upwards of 30 times a minute. However during conversation when she is speaking the respiratory rate falls. Her oxygen saturation remains adequate upwards of 95% with a normal heart rate.) Eyes: Bilateral Eye Normal Inspection, Bilateral Eye PERRL, Bilateral Eye EOMI Respiratory: no respiratory distress, no accessory muscle use Gastrointestinal: normal bowel sounds, non tender, soft Neurologic/Psychiatric: alert, normal mood/affect, oriented x 3 Skin: normal color, warm/dry Progress/Results/Core Measures Suspected Sepsis Recent Fever Within 48 Hours: No Infection Criteria Present: None New/Unexplained Altered Menta: No Sepsis Screen: No Definite Risk SIRS Temperature: Pulse: 96 Respiratory Rate: 23 Blood Pressure 130 /89 Mean: 103 Results/Orders My Orders Orders - GEORGES FINN APRN Chest 1 View, Ap/Pa Only (06/23/20 13:09) Vital Signs/I&O 06/23/20 12:40 Temp 36.0 Pulse 96 Resp 23 B/P (MAP) 130/89 (103) Pulse Ox 97 O2 Delivery Room Air Capillary Refill : Less Than 3 Seconds Blood Pressure Mean: 103 Departure Impression Primary Impression: Dyspnea Disposition: 01 HOME, SELF-CARE Condition: Stable Departure-Patient Inst. Decision time for Depature: 13:50 Referrals: CARMEN GIBBS MD (PCP/Family) Primary Care Physician Patient Instructions: Shortness of Breath (Dyspnea) (DC) GEORGES FINN APRN Jun 23, 2020 13:29
--- NOTE | 2020-06-23 13:48 | Diagnostic Imaging Report ---
INDICATION: Shortness of air status post spinal procedure. COMPARISON: 05/14/2020. FINDINGS: Single frontal radiographic view of the chest was obtained and shows low inspiratory volumes with asymmetric elevation of the right hemidiaphragm. Otherwise, the lungs are clear. There is no large effusion or pneumothorax. Cardiac silhouette and pulmonary vasculature are within normal limits. Osseous structures show no gross acute abnormalities. IMPRESSION: 1. Low lung volumes, but otherwise no acute cardiopulmonary process. Dictated by: Dictated on workstation # [id number]
[2020-06-23 13:59] VITALS: BP 143/87
== END 2020-06-23 14:00 | disposition home or self-care (01) ==
LOC: EDUNIT# 12:10 → ER 12:15
DX: R06.02 Shortness of breath (principal); I10 Essential (primary) hypertension; J45.909 Unspecified asthma, uncomplicated; F32.9 Major depressive disorder, single episode, unspecified; G43.909 Migraine, unspecified, not intractable, without status migrainosus; G89.29 Other chronic pain; E66.9 Obesity, unspecified; Z68.42 Body mass index [BMI] 45.0-49.9, adult; Z88.5 Allergy status to narcotic agent; Z88.0 Allergy status to penicillin; Z88.1 Allergy status to other antibiotic agents; Z79.891 Long term (current) use of opiate analgesic; Z79.52 Long term (current) use of systemic steroids
CPT/HCPCS: 71045

== ENCOUNTER 2020-07-15 17:40 | Emergency (ER) | payer MEDICARE, MEDICAID ==
[~2020-07-15] VITALS: Ht 162 cm; Wt 120.0 kg
[~2020-07-15 17:40] MED LIST changes: -CLIN150C17 PO; +CLIN150C18 PO
--- NOTE | 2020-07-15 18:12 | ED Headache ---
General Chief Complaint: Head/Cervical Problems Stated Complaint: HEADACHE/BILAT EAR REDNESS Nursing Triage Note: PT REPORTS TO ED FOR HEADACHE X'S 6 DAYS WITHOUT IMPROVEMENT. Nursing Sepsis Screen: No Definite Risk Source: patient History of Present Illness Date Seen by Provider: Jul 15, 2020 Time Seen by Provider: 17:58 Initial Comments PT ARRIVES VIA POV --SENT HERE FROM [facility] C/O RIGHT SIDED HEADACHE SINCE Saturday07/10/20 HEADACHE STARTS IN RIGHT [place] AND RADIATES TO RIGHT OCCIPITAL AREA PT WITH CHRONIC HEADACHES FOR MANY YEARS--STATES "IT'S DIFFERENT FROM MY USUAL MIGRAINES--THEY ARE USUALLY ON BOTH SIDES, AND THIS IS ONLY ON ONE SIDE" TOOK 1 TYLENOL AT 1300 TODAY AND TOOK 1 HYDROCODONE 5 MG AT 2200 LAST NIGHT WITHOUT RELIEF NO VISION CHANGES OR PHOTOPHOBIA OR EYE PAIN NO DIZZINESS NO URI/SINUS/ALLERGY SYMPTOMS NO NECK PAIN OR STIFFNESS NO FEVER/SWEATS/CHILLS NO EAR PAIN, BUT STATES THEY TOLD HER THAT HER LEFT EAR WAS RED AT THE CLINIC TODAY HAD SLIGHT NAUSEA EARLIER, BUT IS NORMAL FOR HER TO HAVE FREQUENT NAUSEA NO PARESTHESIAS OR MOTOR DEFICITS SYMPTOMS NO DIFFERENT TODAY IN ANY WAY HAS NOT SOUGHT CARE UNTIL TODAY PT WITH MULTITUDE OF VISITS HERE--VARIOUS COMPLAINTS, USUALLY FOR VARIOUS PAIN COMPLAINTS THIS IS 3RD VISIT IN 2020--UNRELATED COMPLAINTS PT STATES SHE TESTED POSITIVE FOR COVID-19 IN --MILD DISEASE, NO HOSPITALIZATION PCP: [facility] Allergies and Home Medications Allergies Coded Allergies: fentanyl (Verified Allergy, Unknown, 10/16/18) meperidine (Verified Allergy, Unknown, 10/16/18) penicillin G (Verified Allergy, Unknown, 10/16/18) vancomycin (Verified Adverse Reaction, Intermediate, severe itching, 10/26/19) Home Medications Acetaminophen 500 Mg Tablet, 1,000 MG PO Q8H PRN for PAIN-MILD (1-4), (Reported) Cefdinir 300 Mg Capsule, 300 MG PO BID Prescribed by: YAN CHAPARRO on 07/15/20 190 Cyclobenzaprine HCl 10 Mg Tablet, 10 MG PO TID PRN for PAIN-MODERATE (5-7) Prescribed by: OSVALDO CALDWELL on 05/14/20 1612 Diphenhydramine HCl 25 Mg Capsule, 25 MG PO HS PRN for SLEEP, (Reported) Estradiol 1 Mg Tablet, 1 MG PO HS, (Reported) Fluticasone Propionate 9.9 Ml [place].susp, 2 SPRAY NS DAILY 2 SPRAYS PER NOSTRIL DAILY X 2 DAYS THEN 1 SPRAY DAILY Prescribed by: YAN CHAPARRO on 07/15/201906 Hydrocodone/Acetaminophen 1 Each Tablet, 2 EACH PO Q6H PRN for PAIN-MILD (1-4), (Reported) Hydrocodone/Acetaminophen 1 Each Tablet, 1 EACH PO Q6H PRN for PAIN-BREAKTHROUGH Prescribed by: OSVALDO CALDWELL on 05/14/20 161 L. Acidophilus/Pectin, [place] 1 Each Capsule, 2 EACH PO QID Prescribed by: YAN CHAPARRO on 07/15/201918 Loratadine/Pseudoephedrine 1 Each Tab.er.12h, 1 EACH PO BID Prescribed by: YAN CHAPARRO on 07/15/201906 Methocarbamol 750 Mg Tablet, 750-1,500 MG PO Q6H PRN for PAIN-MILD (1-4) Prescribed by: GEORGES FINN on 02/10/20 125 Methylprednisolone 4 Mg Tab.ds.pk, 4 MG PO UD PER DOSE PACK INSTRUCTIONS Prescribed by: GEORGES FINN on 02/10/20 125 Methylprednisolone 4 Mg Tab.ds.pk, 4 MG PO UD PER DOSE PACK INSTRUCTIONS Prescribed by: YAN CHAPARRO on 07/15/201906 Multivitamin 1 Each Tablet, 1 EACH PO DAILY, (Reported) Ondansetron 8 Mg Tab.rapdis, 8 MG PO Q8H PRN for NAUSEA/VOMITING, (Reported) Ondansetron HCl 8 Mg Tablet, 8-16 MG PO Q6H PRN for NAUSEA-1ST LINE Prescribed by: MAKAYLA HAWKINS on 01/21/201620 Promethazine HCl 25 Mg Tablet, 25 MG PO Q6H PRN for NAUSEA/VOMITING Prescribed by: MAKAYLA HAWKINS on 01/21/20 162 Promethazine HCl 25 Mg Tablet, 25 MG PO Q8H PRN for NAUSEA/VOMITING Prescribed by: OSVALDO CALDWELL on 05/14/20 161 Ropinirole HCl 4 Mg Tablet, 4 MG PO HS, (Reported) Scopolamine 1 Each Patch.td72, 1 EACH TD Q72H, (Reported) Sertraline HCl 50 Mg Tablet, 50 MG PO HS, (Reported) Sulfamethoxazole/Trimethoprim 1 Each Tablet, 1 EACH PO BID Prescribed by: IZABELA MAC on 04/30/20 1027 Patient Home Medication List Home Medication List Reviewed: Yes Review of Systems Review of Systems Constitutional: no symptoms reported; No chills, No diaphoresis, No dizziness, No fever, No malaise, No weakness Eyes: No Symptoms Reported; Denies Blurred Vision, Denies Decreased Acuity, Denies Photophobia Ears, Nose, Mouth, Throat: no symptoms reported; denies ear pain, denies nose discharge, denies throat pain Respiratory: no symptoms reported Cardiovascular: no symptoms reported Gastrointestinal: see HPI; No abdominal pain; nausea; No vomiting Genitourinary: no symptoms reported Musculoskeletal: no symptoms reported; No back pain, No neck pain Skin: no symptoms reported Psychiatric/Neurological: See HPI, Headache; Denies Numbness, Denies Paresthesia, Denies Seizure, Denies Tingling, Denies Tremors, Denies Weakness Past Disejdq-Xooojw-Eesuge Hx Past Med/Social Hx: Reviewed and Corrections made Patient Social History Alcohol Use: Denies Use Smoking Status: Former Smoker Type Used: Cigarettes 2nd Hand Smoke Exposure: No Recent Infectious Disease Expo: No Recent Hopitalizations: No Immunizations Up To Date Tetanus Booster (TDap): Less than 5yrs PED Vaccines UTD: No Date of Pneumonia Vaccine: May 17, 2012 Date of Influenza Vaccine: Jul 03, 2012 Seasonal Allergies Seasonal Allergies: No Past Medical History Surgeries: Yes (hernia repair, knee scopes) Adenoidectomy, Appendectomy, Gallbladder, 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, Nephrectomy, Orthopedic, Tonsillectomy Respiratory: Yes Asthma Currently Using CPAP: No Currently Using BIPAP: No Cardiac: Yes Hypertension Neurological: Yes Headaches /Migraines 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: Yes (HX ENDOMETRIOSIS ) 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 Sexually Transmitted Disease: No HIV/AIDS: No Genitourinary: No UTI-Chronic Gastrointestinal: Yes Abdominal Hernia, Gastroesophageal Reflux, Liver Disease/Jaundice, Obstructive Bowel, Pancreatitis, Polyps Musculoskeletal: Yes (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) Chronic Back Pain Endocrine: No HEENT: No Loss of Vision: Denies Hearing Impairment: Denies Cancer: Yes Kidney Did You Recieve Any Treatments: Yes What Type of Treatment Did You: Surgical Intervention Psychosocial: Yes Depression Nursing Suicide Risk Notes: LEFT NEPHRECTOMY Integumentary: No Herpes Blood Disorders: No Adverse Reaction/Blood Tranf: No (N/A) Family Medical History Cardiovascular disease 19 FATHER Completed stroke 19 FATHER Diabetes mellitus 19 FATHER Hypercholesterolemia 19 FATHER 19 MOTHER Hypertension 19 FATHER 19 MOTHER Neoplasm 19 MOTHER Psychosocial problem 19 FATHER 19 MOTHER No Pertinent Family Hx, Cancer, Diabetes, Hypertension PSH: -RIGHT KNEE SCOPE X 5 -LEFT KNEE SCOPE X 2 -TONSILLECTOMY / ADENOIDECTOMY -APPENDECTOMY -CHOLECYSTECTOMY -NASAL FRACTURE REPAIR -COCCYX REMOVAL -LEFT NEPHRECTOMY FOR MALIGNANCY -LEFT MID ABDOMEN INCISIONAL HERNIA REPAIR -DRAINAGE OF ABDOMINAL WALL ABSCESS -MULTIPLE EGD'S AND COLONOSCOPIES--LAST ONE DONE HERE 10/26/19 -HYSTERECTOMY / BILATERAL SALPINGO-OOPHORECTOMY 2007 -06/23/20--RIGHT CHEST WALL/SHOULDER INJECTION FOR THORACIC OUTLET SYNDROME--DONE IN Physical Exam Vital Signs Vital Signs - First Documented 07/15/20 17:43 Temp 35.9 Pulse 83 Resp 20 B/P (MAP) 103/66 (78) Pulse Ox 97 O2 Delivery Room Air Capillary Refill : Less Than 3 Seconds Height, Weight, BMI Height: 5'3.00" Weight: 246lbs. 0oz. 111.306159uz; 45.00 BMI Method:Stated General Appearance: WD/WN, no apparent distress HEENT: PERRL/EOMI, pharynx normal; No scleral icterus (R), No scleral icterus (L), No photophobia; TM abnormal (R) (RIGHT TM VERY INFLAMED WITH EFFUSION; LEFT TM WITH SMALL EFFUSION--NON INFLAMED), other (NOSE NORMAL. NO SINUS TENDERNESS) Neck: non-tender, full range of motion, supple, normal inspection Cardiovascular: regular rate, rhythm, no edema, no JVD, no murmur Respiratory: normal breath sounds, no respiratory distress, no accessory muscle use Gastrointestinal: non tender, soft Back: normal inspection Extremities: normal inspection Psychiatric: alert, oriented x 3 [place] Nerves: normal hearing, normal speech, PERRL Coordination/Gait: normal finger to nose, normal gait Motor/Sensory: no motor deficit, no sensory deficit, no pronator drift Skin: normal color, warm/dry; No rash Progress/Results/Core Measures Results/Orders My Orders Orders - YAN CHAPARRO DO Ct Head Wo (07/15/20 18:06) Ceftriaxone For Im Use (Rocephin For Im (07/15/20 19:15) Lidocaine 1% Inj 20 Ml (Xylocaine 1% Inj (07/15/20 19:15) Methylprednisolone Sod Succ (Solu-Medrol (07/15/20 19:15) Diphenhydramine Tablet (Benadryl Tablet) (07/15/20 19:45) Medications Given in ED Current Medications Medications Dose Ordered Sig/Neal Route Start Time Stop Time Status Last Admin Dose Admin Diphenhydramine HCl 50 mg ONCE ONCE PO 07/15/20 19:45 07/15/20 19:38 DC 07/15/20 19:35 50 MG Lidocaine HCl 2.1 ml ONCE ONCE INJ 07/15/20 19:15 07/15/20 19:16 DC 07/15/20 19:16 2.1 ML Methylprednisolone Sodium Succinate 125 mg ONCE ONCE IM 07/15/20 19:15 07/15/20 19:16 DC 07/15/20 19:18 125 MG Vital Signs/I&O 07/15/20 07/15/20 17:43 19:38 Temp 35.9 36.0 Pulse 83 78 Resp 20 20 B/P (MAP) 103/66 (78) 107/76 Pulse Ox 97 97 O2 Delivery Room Air Room Air Blood Pressure Mean: 78 Progress Progress Note : Progress Note GIVEN ROCEPHIN AND SOLU-MEDROL PT STATES HER HEADACHE IS EASING AT TIME OF DISMISSAL PT DID HAVE SOME ITCHING TO RIGHT BUTTOCK AREA AFTER INJECTION, BUT NO RASH. NO DIFFICULTY BREATHING. NO GI SYMPTOMS. NO SWELLING. Diagnostic Imaging Comments CT HEAD--PER RADIOLOGIST REPORT AT 1857 FINDINGS: No large acute territorial ischemia, mass or hemorrhage. No midline shift or mass effect. The ventricles, cortical sulci, and basilar cisterns are patent and unremarkable. The orbits are normal. Frothy secretions are visualized in the right sphenoid sinus. Mastoid air cells are clear. No soft tissue abnormality is seen. No osseus lesions or fractures are seen. IMPRESSION: 1. No large acute territorial ischemia, mass, or hemorrhage. 2. Acute sinusitis in the right sphenoid sinus. This may be the cause of the patient's headache. Reviewed: Reviewed by Me Departure Impression Primary Impression: Sphenoid sinusitis Additional Impression: Right otitis media with effusion Disposition: HOME, SELF-CARE Condition: Stable Departure-Patient Inst. Referrals: ROCHELLE FERMIN MD,CARMEN Christie MD (PCP/Family) Primary Care Physician Patient Instructions: Ear Infection ED, Serous Otitis Media (DC), Sinusitis, Adult ED Add. Discharge Instructions: HOME, REST CONTINUE HYDROCODONE NEEDED FOR PAIN FOLLOW UP WITH DR. FERMIN NEXT WEEK FOR FURTHER CARE All discharge instructions reviewed with patient and/or family. Voiced understanding. Scripts L. Acidophilus/Pectin, [place] (Acidophilus Capsule) 1 Each Capsule 2 EACH PO QID, #80 CAP Prov: SHANKARYAN Vickey GAMING 07/15/20 Methylprednisolone (Medrol) 4 Mg Tab.ds.pk 4 MG PO UD for 6 Days, #21 PKG PER DOSE PACK INSTRUCTIONS Prov: YAN CHAPARRO DO 07/15/20 Fluticasone Propionate (Flonase Allergy Relief) 9.9 Ml [place].susp 2 SPRAY NS DAILY, #1 EACH 2 SPRAYS PER NOSTRIL DAILY X 2 DAYS THEN 1 SPRAY DAILY Prov: YAN CHAPARRO DO 07/15/20 Loratadine/Pseudoephedrine (Claritin-D 12 Hour Tablet) 1 Each Tab.er.12h 1 EACH PO BID, #30 TAB Prov: YAN CHAPARRO DO 07/15/20 Cefdinir (Cefdinir) 300 Mg Capsule 300 MG PO BID, #40 CAP Prov: SHANKARYAN K 07/15/20 YAN CHAPARRO DO Jul 15, 2020 18:12
--- NOTE | 2020-07-15 18:52 | Diagnostic Imaging Report ---
EXAMINATION: CT head without contrast. TECHNIQUE: Multiple contiguous axial images were obtained through the brain without the use of intravenous contrast. All CT scans use one or more of the following dose optimizing techniques: automated exposure control, MA and/or KvP adjustment based on patient size and exam type or iterative reconstruction. HISTORY: Headache. COMPARISON: None available. FINDINGS: No large acute territorial ischemia, mass or hemorrhage. No midline shift or mass effect. The ventricles, cortical sulci, and basilar cisterns are patent and unremarkable. The orbits are normal. Frothy secretions are visualized in the right sphenoid sinus. Mastoid air cells are clear. No soft tissue abnormality is seen. No osseus lesions or fractures are seen. IMPRESSION: 1. No large acute territorial ischemia, mass, or hemorrhage. 2. Acute sinusitis in the right sphenoid sinus. This may be the cause of the patient's headache. Dictated by: Dictated on workstation # [id number]
[2020-07-15] MEDS ORDERED: METH4TAB PO (19:07)
[2020-07-15] MEDS ORDERED: FLUT9.9S NS (19:07)
[2020-07-15] MEDS ORDERED: LORA1TAB59 PO (19:07)
[2020-07-15] MEDS ORDERED: CEFD300C3 PO (19:07)
[2020-07-15] MEDS ORDERED: methylPREDNISolone 125 MG (Solu-MEDROL) VIAL IM ONE (19:15)
[2020-07-15] MEDS ORDERED: cefTRIAXone 1,000 MG/2.86 ml vial (IM ONLY) IM SCH (19:15)
[2020-07-15] MEDS ORDERED: LIDOCAINE 1% INJ 20 ML 20 ML VIAL INJ ONE (19:15)
[2020-07-15] MEDS ORDERED: L. A1CAP11 PO (19:19)
--- NOTE | 2020-07-15 19:30 | NUR ---
PT REPORTS FEELING ITCHY NEAR ROCEHPIN INJECTION SITE. PROVIDER NOTIFIED.
[2020-07-15 19:38] VITALS: BP 107/76
[2020-07-15] MEDS ORDERED: diphenhydrAMINE 25 MG TAB (BENADRYL) PO ONE (19:45)
== END 2020-07-15 19:37 | disposition home or self-care (01) ==
LOC: EDUNIT# 17:40 → ER 17:42
DX: J32.3 Chronic sphenoidal sinusitis (principal); H65.91 Unspecified nonsuppurative otitis media, right ear; J45.909 Unspecified asthma, uncomplicated; F32.9 Major depressive disorder, single episode, unspecified; G89.29 Other chronic pain; M54.9 Dorsalgia, unspecified; Z88.0 Allergy status to penicillin; Z88.5 Allergy status to narcotic agent; Z88.8 Allergy status to other drugs, medicaments and biological substances; Z87.891 Personal history of nicotine dependence; Z85.528 Personal history of other malignant neoplasm of kidney; Z82.49 Family history of ischemic heart disease and other diseases of the circulatory system; Z83.3 Family history of diabetes mellitus; Z79.52 Long term (current) use of systemic steroids; Z79.891 Long term (current) use of opiate analgesic
CPT/HCPCS: 70450

== ENCOUNTER 2020-07-28 14:37 | Emergency (ER) | payer MEDICARE, MEDICAID ==
[~2020-07-28] VITALS: Ht 160 cm; Wt 98.1 kg
[~2020-07-28 14:37] MED LIST changes: +CEFD300C3 PO; -CIPR500T4 PO; +CIPR500T5 PO; +FLUT9.9S NS; +L. A1CAP11 PO; +LORA1TAB59 PO; +SERT-413 PO; -SERT50TA9 PO
--- NOTE | 2020-07-28 14:53 | ED General ---
General Stated Complaint: MEJIA,NECK PAIN Source of Information: Patient Exam Limitations: No Limitations History of Present Illness Date Seen by Provider: Jul 28, 2020 Time Seen by Provider: 14:53 Initial Comments To ER with c/o right sided throat pain, right neck pain, right yarsanism pain. Recently treated for sinusitis. Timing/Duration: 2-3 Days Severity: Moderate Associated Systoms: Headaches Allergies and Home Medications Allergies Coded Allergies: fentanyl (Verified Allergy, Unknown, 10/16/18) meperidine (Verified Allergy, Unknown, 10/16/18) penicillin G (Verified Allergy, Unknown, 10/16/18) vancomycin (Verified Adverse Reaction, Intermediate, severe itching, 10/26/19) Home Medications Acetaminophen 500 Mg Tablet, 1,000 MG PO Q8H PRN for PAIN-MILD (1-4), (Reported) Cefdinir 300 Mg Capsule, 300 MG PO BID Prescribed by: YAN CHAPARRO on 07/15/207 Cyclobenzaprine HCl 10 Mg Tablet, 10 MG PO TID PRN for PAIN-MODERATE (5-7) Prescribed by: OSVALDO CALDWELL on 05/14/20 161 Diphenhydramine HCl 25 Mg Capsule, 25 MG PO HS PRN for SLEEP, (Reported) Estradiol 1 Mg Tablet, 1 MG PO HS, (Reported) Fluticasone Propionate 9.9 Ml [place].susp, 2 SPRAY NS DAILY 2 SPRAYS PER NOSTRIL DAILY X 2 DAYS THEN 1 SPRAY DAILY Prescribed by: YAN CHAPARRO on 07/15/207 Hydrocodone/Acetaminophen 1 Each Tablet, 2 EACH PO Q6H PRN for PAIN-MILD (1-4), (Reported) Hydrocodone/Acetaminophen 1 Each Tablet, 1 EACH PO Q6H PRN for PAIN-BREAKTHROUGH Prescribed by: OSVALDO CALDWELL on 05/14/20 161 L. Acidophilus/Pectin, [place] 1 Each Capsule, 2 EACH PO QID Prescribed by: YAN CHAPARRO on 07/15/201918 Loratadine/Pseudoephedrine 1 Each Tab.er.12h, 1 EACH PO BID Prescribed by: YAN CHAPARRO on 07/15/201906 Methocarbamol 750 Mg Tablet, 750-1,500 MG PO Q6H PRN for PAIN-MILD (1-4) Prescribed by: GEORGES FINN on 02/10/20 1256 Methylprednisolone 4 Mg Tab.ds.pk, 4 MG PO UD PER DOSE PACK INSTRUCTIONS Prescribed by: GEORGES FINN on 02/10/20 1256 Methylprednisolone 4 Mg Tab.ds.pk, 4 MG PO UD PER DOSE PACK INSTRUCTIONS Prescribed by: YAN CHAPARRO on 07/15/20 1907 Multivitamin 1 Each Tablet, 1 EACH PO DAILY, (Reported) Ondansetron 8 Mg Tab.rapdis, 8 MG PO Q8H PRN for NAUSEA/VOMITING, (Reported) Ondansetron HCl 8 Mg Tablet, 8-16 MG PO Q6H PRN for NAUSEA-1ST LINE Prescribed by: MAKAYLA HAWKINS on 01/21/20 1621 Promethazine HCl 25 Mg Tablet, 25 MG PO Q6H PRN for NAUSEA/VOMITING Prescribed by: MAKAYLA HAWKINS on 01/21/20 1621 Promethazine HCl 25 Mg Tablet, 25 MG PO Q8H PRN for NAUSEA/VOMITING Prescribed by: OSVALDO CALDWELL on 05/14/20 1618 Ropinirole HCl 4 Mg Tablet, 4 MG PO HS, (Reported) Scopolamine 1 Each Patch.td72, 1 EACH TD Q72H, (Reported) Sertraline HCl 50 Mg Tablet, 50 MG PO HS, (Reported) Sulfamethoxazole/Trimethoprim 1 Each Tablet, 1 EACH PO BID Prescribed by: IZABELA MAC on 04/30/20 1027 Patient Home Medication List Home Medication List Reviewed: Yes Review of Systems Review of Systems Constitutional: see HPI EENTM: see HPI Respiratory: see HPI Cardiovascular: no symptoms reported Genitourinary: no symptoms reported Musculoskeletal: no symptoms reported Skin: no symptoms reported Psychiatric/Neurological: No Symptoms Reported Hematologic/Lymphatic: No Symptoms Reported Immunological/Allergic: no symptoms reported Past Fllfagw-Cgqdlq-Qwirgc Hx Patient Social History Type Used: Cigarettes 2nd Hand Smoke Exposure: No Recent Hopitalizations: No Immunizations Up To Date Tetanus Booster (TDap): Less than 5yrs PED Vaccines UTD: No Date of Pneumonia Vaccine: May 17, 2012 Date of Influenza Vaccine: Jul 03, 2012 Seasonal Allergies Seasonal Allergies: No Past Medical History Surgeries: Yes (hernia repair, knee scopes) Adenoidectomy, Appendectomy, Gallbladder, 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, Nephrectomy, Orthopedic, Tonsillectomy Respiratory: Yes Asthma Currently Using CPAP: No Currently Using BIPAP: No Cardiac: Yes Hypertension Neurological: Yes Headaches /Migraines 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: Yes (HX ENDOMETRIOSIS ) 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: 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: 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 Sexually Transmitted Disease: No HIV/AIDS: No Genitourinary: No UTI-Chronic Gastrointestinal: Yes Abdominal Hernia, Gastroesophageal Reflux, Liver Disease/Jaundice, Obstructive Bowel, Pancreatitis, Polyps Musculoskeletal: Yes (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) Chronic Back Pain Endocrine: No HEENT: No Loss of Vision: Denies Hearing Impairment: Denies Cancer: Yes Kidney Did You Recieve Any Treatments: Yes What Type of Treatment Did You: Surgical Intervention Psychosocial: Yes Depression Integumentary: No Herpes Blood Disorders: No Adverse Reaction/Blood Tranf: No (N/A) Family Medical History Cardiovascular disease 19 FATHER Completed stroke 19 FATHER Diabetes mellitus 19 FATHER Hypercholesterolemia 19 FATHER 19 MOTHER Hypertension 19 FATHER 19 MOTHER Neoplasm 19 MOTHER Psychosocial problem 19 FATHER 19 MOTHER No Pertinent Family Hx, Cancer, Diabetes, Hypertension PSH: -RIGHT KNEE SCOPE X 5 -LEFT KNEE SCOPE X 2 -TONSILLECTOMY / ADENOIDECTOMY -APPENDECTOMY -CHOLECYSTECTOMY -NASAL FRACTURE REPAIR -COCCYX REMOVAL -LEFT NEPHRECTOMY FOR MALIGNANCY -LEFT MID ABDOMEN INCISIONAL HERNIA REPAIR -DRAINAGE OF ABDOMINAL WALL ABSCESS -MULTIPLE EGD'S AND COLONOSCOPIES--LAST ONE DONE HERE 10/26/19 -HYSTERECTOMY / BILATERAL SALPINGO-OOPHORECTOMY 2007 -06/23/20--RIGHT CHEST WALL/SHOULDER INJECTION FOR THORACIC OUTLET SYNDROME--DONE IN Physical Exam Vital Signs Vital Signs - First Documented 07/28/20 14:53 Temp 36.2 Pulse 68 Resp 18 B/P (MAP) 138/104 (115) Pulse Ox 97 O2 Delivery Room Air Capillary Refill : Height, Weight, BMI Height: 5'3.00" Weight: 246lbs. 0oz. 111.787333zm; 45.00 BMI Method:Stated General Appearance: No Apparent Distress, WD/WN Eyes: Bilateral Eye Normal Inspection, Bilateral Eye PERRL, Bilateral Eye EOMI Neck: Full Range of Motion, Normal Inspection Respiratory: No Accessory Muscle Use, No Respiratory Distress Cardiovascular: Regular Rate, Rhythm, Normal Peripheral Pulses Gastrointestinal: Non Tender, Soft Extremity: Normal Capillary Refill, Normal Inspection Neurologic/Psychiatric: Alert, Oriented x3 Skin: Normal Color, Warm/Dry Progress/Results/Core Measures Suspected Sepsis SIRS Temperature: Pulse: Respiratory Rate: Blood Pressure / Mean: Results/Orders My Orders Orders - GEORGES FINN APRN Butalbital/Apap/Caffeine Tab (Fioricet T (07/28/20 15:00) Ibuprofen Tablet (Motrin Tablet) (07/28/20 15:00) Ns Iv 500 Ml (Sodium Chloride 0.9%) (07/28/20 16:45) Ketamine Syringe (Ed Only) (Ketamine Syr (07/28/20 16:45) Ct Head Wo (07/28/20 16:33) Medications Given in ED Current Medications Medications Dose Ordered Sig/Neal Route Start Time Stop Time Status Last Admin Dose Admin Acetaminophen/ Butalbital/ Caffeine 2 tab ONCE PRN PO 07/28/20 15:00 07/28/20 15:15 2 TAB Ibuprofen 800 mg ONCE ONCE PO 07/28/20 15:00 07/28/20 15:01 DC 07/28/20 15:35 800 MG Ketamine HCl 25 mg ONCE ONCE IV 07/28/20 16:45 07/28/20 16:46 DC 07/28/20 16:46 25 MG Vital Signs/I&O 07/28/20 14:53 Temp 36.2 Pulse 68 Resp 18 B/P (MAP) 138/104 (115) Pulse Ox 97 O2 Delivery Room Air Capillary Refill : Departure Communication (Admissions) 5003-no improvement. Still c/o severe right side headache. Crying. Will obtain another ct. iv started. ketamine ordered. Impression Primary Impression: Sphenoid sinusitis Disposition: HOME, SELF-CARE Condition: Stable Departure-Patient Inst. Decision time for Depature: 18:11 Referrals: CARMEN GIBBS MD (PCP/Family) Primary Care Physician Patient Instructions: Headache, Adult (DC) Add. Discharge Instructions: 1. Complete antibiotic as directed. Return to ER for any concerns. Follow-up with your doctor next week. Scripts Levofloxacin (Levofloxacin) 500 Mg Tablet 500 MG PO DAILY, #7 TAB Prov: GEORGES FINN APRN 07/28/20 GEORGES FINN APRN Jul 28, 2020 14:53
[2020-07-28] MEDS ORDERED: IBUPROFEN 800 MG (MOTRIN) TAB PO ONE (15:00)
[2020-07-28] MEDS ORDERED: ACET/BUTAL/CAFF (FIORICET) TAB PO PRN (15:00)
[2020-07-28] MEDS ORDERED: KETAMINE/NaCl 50 MG/5 ML SYRINGE (ED ONLY) IV ONE (16:45)
[2020-07-28] MEDS ORDERED: NS IV 500 ML 500 ML IV SCH (16:45)
--- NOTE | 2020-07-28 18:07 | Diagnostic Imaging Report ---
PROCEDURE: CT head without contrast. TECHNIQUE: Multiple contiguous axial images were obtained through the brain without the use of intravenous contrast. Auto Exposure Controls were utilized during the CT exam to meet ALARA standards for radiation dose reduction. INDICATION: 35-year-old female presents with pain in the right side of the face and head. Currently on medications for sinus infection. COMPARISON: 07/15/2020. FINDINGS: Midline structures are not displaced. Lateral, 3rd and 4th ventricles are normal in size, shape and anatomic position. There is no mass, mass effect, hydrocephalus or hemorrhage. Hector-white differentiation is normal. There is no sulcal effacement. There are no abnormal extra-axial fluid collections or hemorrhage. Basilar cisterns appear normal. Sinuses continue to show right sphenoid sinus disease. There is a similar air-fluid level within the sinus. Remainder of the sinuses appear well pneumatized. Orbits and mastoid air cells are unremarkable IMPRESSION: 1. Unremarkable nonenhanced CT brain. 2. Continued acute right sphenoid sinus disease similar to the previous study. Dictated by: Dictated on workstation # [id number]
[2020-07-28] MEDS ORDERED: LEVO500T80 PO (18:12)
[2020-07-28] MEDS ORDERED: RX-TRAMADOL 50 MG (ULTRAM) TAB PPK#4 PO STA (18:20)
[2020-07-28] MEDS ORDERED: LEVOFLOXACIN 500 MG TAB (LEVAQUIN) PO ONE (18:30)
[2020-07-28 18:38] VITALS: BP 118/83
== END 2020-07-28 18:37 | disposition home or self-care (01) ==
LOC: EDUNIT# 14:37 → ER 14:38
DX: J32.3 Chronic sphenoidal sinusitis (principal); J45.909 Unspecified asthma, uncomplicated; F32.9 Major depressive disorder, single episode, unspecified; G89.29 Other chronic pain; M54.9 Dorsalgia, unspecified; Z88.0 Allergy status to penicillin; Z88.5 Allergy status to narcotic agent; Z88.1 Allergy status to other antibiotic agents; Z88.8 Allergy status to other drugs, medicaments and biological substances; Z85.528 Personal history of other malignant neoplasm of kidney; Z82.49 Family history of ischemic heart disease and other diseases of the circulatory system; Z83.3 Family history of diabetes mellitus; Z80.9 Family history of malignant neoplasm, unspecified; Z79.52 Long term (current) use of systemic steroids; Z79.891 Long term (current) use of opiate analgesic
CPT/HCPCS: 70450

== ENCOUNTER 2020-08-15 10:59 | Emergency (ER) | payer MEDICARE, MEDICAID ==
[~2020-08-15] VITALS: Ht 160 cm; Wt 122.5 kg
[~2020-08-15 10:59] MED LIST changes: +LEVO500T80 PO
--- NOTE | 2020-08-15 13:04 | ED Abdominal Pain ---
General Chief Complaint: Abdominal/GI Problems Stated Complaint: ABD/BACK PAIN Nursing Triage Note: PT REPORTS ABDOMINAL PAIN FOR SEVERAL DAYS BUT TODAY THE PAIN IS WORSE. PAIN IS MIDLINE AND LEFT LOWER QUAD. PT STATES SHE HAS A CT WTIH CONTRAST ORDERED FOR SATURDAY TO EVALUATE THE CONDITION OF HER MESH IN HER LEFT LOWER QUAD. PT STATES SHE FEELS LIKE SHE IS HAVING A "PANCREATITIS ATTACK". PT ALSO REPORTS A SORE ON HER TONGUE THAT IS VERY PAINFUL AND A SWOLLEN FACE THIS AM. Sepsis Screen: No Definite Risk Source of Information: Patient Exam Limitations: No Limitations History of Present Illness Date Seen by Provider: Aug 15, 2020 Time Seen by Provider: 12:26 Initial Comments This is a 35-year-old female who presents to the ER with complaints of acute on chronic pain in her upper abdomen and left lower quadrant. Reports history of pancreatitis which causes her pain daily, however states her pain worsened last night. Additionally has a history of hernia with mesh repair that she states has been causing her pain and issues for over a year. States she is to have a CT of her abdomen with contrast on Saturday with follow-up with her GI provider. Currently rates pain 10/10, localized, sharp and stabbing. States her home hydrocodone and Tylenol has not been helping. Denies fevers, chills, cough, shortness of breath. Reports chronic nausea/vomiting that she takes Zofran daily for. Allergies and Home Medications Allergies Coded Allergies: fentanyl (Verified Allergy, Unknown, 10/16/18) meperidine (Verified Allergy, Unknown, 10/16/18) penicillin G (Verified Allergy, Unknown, 10/16/18) vancomycin (Verified Adverse Reaction, Intermediate, severe itching, 10/26/19) Home Medications Acetaminophen 500 Mg Tablet, 1,000 MG PO Q8H PRN for PAIN-MILD (1-4), (Reported) Cefdinir 300 Mg Capsule, 300 MG PO BID Prescribed by: YAN CHAPARRO on 07/15/20 1907 Cyclobenzaprine HCl 10 Mg Tablet, 10 MG PO TID PRN for PAIN-MODERATE (5-7) Prescribed by: OSVALDO CALDWELL on 05/14/20 1612 Diphenhydramine HCl 25 Mg Capsule, 25 MG PO HS PRN for SLEEP, (Reported) Estradiol 1 Mg Tablet, 1 MG PO HS, (Reported) Fluticasone Propionate 9.9 Ml [place].susp, 2 SPRAY NS DAILY 2 SPRAYS PER NOSTRIL DAILY X 2 DAYS THEN 1 SPRAY DAILY Prescribed by: YAN CHAPARRO on 07/15/201906 Hydrocodone/Acetaminophen 1 Each Tablet, 2 EACH PO Q6H PRN for PAIN-MILD (1-4), (Reported) Hydrocodone/Acetaminophen 1 Each Tablet, 1 EACH PO Q6H PRN for PAIN-BREAKTHROUGH Prescribed by: OSVALDO CALDWELL on 05/14/20 161 L. Acidophilus/Pectin, [place] 1 Each Capsule, 2 EACH PO QID Prescribed by: YAN CHAPARRO on 07/15/201918 Levofloxacin 500 Mg Tablet, 500 MG PO DAILY Prescribed by: GEORGES FINN on 07/28/201811 Loratadine/Pseudoephedrine 1 Each Tab.er.12h, 1 EACH PO BID Prescribed by: YAN CHAPARRO on 07/15/201906 Methocarbamol 750 Mg Tablet, 750-1,500 MG PO Q6H PRN for PAIN-MILD (1-4) Prescribed by: GEORGES FINN on 02/10/20 125 Methylprednisolone 4 Mg Tab.ds.pk, 4 MG PO UD PER DOSE PACK INSTRUCTIONS Prescribed by: GEORGES FINN on 02/10/20 125 Methylprednisolone 4 Mg Tab.ds.pk, 4 MG PO UD PER DOSE PACK INSTRUCTIONS Prescribed by: YAN CHAPARRO on 07/15/201906 Multivitamin 1 Each Tablet, 1 EACH PO DAILY, (Reported) Ondansetron 8 Mg Tab.rapdis, 8 MG PO Q8H PRN for NAUSEA/VOMITING, (Reported) Ondansetron HCl 8 Mg Tablet, 8-16 MG PO Q6H PRN for NAUSEA-1ST LINE Prescribed by: MAKAYLA HAWKINS on 01/21/20 162 Promethazine HCl 25 Mg Tablet, 25 MG PO Q6H PRN for NAUSEA/VOMITING Prescribed by: MAKAYLA HAWKINS on 01/21/20 162 Promethazine HCl 25 Mg Tablet, 25 MG PO Q8H PRN for NAUSEA/VOMITING Prescribed by: OSVALDO CALDWELL on 05/14/20 161 Ropinirole HCl 4 Mg Tablet, 4 MG PO HS, (Reported) Scopolamine 1 Each Patch.td72, 1 EACH TD Q72H, (Reported) Sertraline HCl 50 Mg Tablet, 50 MG PO HS, (Reported) Sulfamethoxazole/Trimethoprim 1 Each Tablet, 1 EACH PO BID Prescribed by: IZABELA MAC on 04/30/20 1027 Patient Home Medication List Home Medication List Reviewed: Yes Review of Systems Review of Systems Constitutional: see HPI EENTM: No Symptoms Reported Respiratory: No Symptoms Reported Cardiovascular: No Symptoms Reported Gastrointestinal: See HPI Genitourinary: No Symptoms Reported Musculoskeletal: no symptoms reported Skin: no symptoms reported Psychiatric/Neurological: No Symptoms Reported Endocrine: No Symptoms Reported Hematologic/Lymphatic: No Symptoms Reported Past Qbgmnvn-Wwdcto-Avuhvl Hx Patient Social History Alcohol Use: Denies Use Smoking Status: Never a Smoker Type Used: Cigarettes 2nd Hand Smoke Exposure: No Recent Infectious Disease Expo: No Recent Hopitalizations: No Immunizations Up To Date Tetanus Booster (TDap): Less than 5yrs PED Vaccines UTD: No Date of Pneumonia Vaccine: May 17, 2012 Date of Influenza Vaccine: Jul 03, 2012 Seasonal Allergies Seasonal Allergies: No Past Medical History Surgeries: Yes (hernia repair, knee scopes) Adenoidectomy, Appendectomy, Gallbladder, 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, Nephrectomy, Orthopedic, Tonsillectomy Respiratory: Yes Asthma Currently Using CPAP: No Currently Using BIPAP: No Cardiac: Yes Hypertension Neurological: Yes Headaches /Migraines 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: Yes (HX ENDOMETRIOSIS ) 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: 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 Sexually Transmitted Disease: No HIV/AIDS: No Genitourinary: No UTI-Chronic Gastrointestinal: Yes Abdominal Hernia, Gastroesophageal Reflux, Liver Disease/Jaundice, Obstructive Bowel, Pancreatitis, Polyps Musculoskeletal: Yes (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) Chronic Back Pain Endocrine: No HEENT: No Loss of Vision: Denies Hearing Impairment: Denies Cancer: Yes Kidney Did You Recieve Any Treatments: Yes What Type of Treatment Did You: Surgical Intervention Psychosocial: Yes Depression Integumentary: No Herpes Blood Disorders: No Adverse Reaction/Blood Tranf: No (N/A) Family Medical History Cardiovascular disease 19 FATHER Completed stroke 19 FATHER Diabetes mellitus 19 FATHER Hypercholesterolemia 19 FATHER 19 MOTHER Hypertension 19 FATHER 19 MOTHER Neoplasm 19 MOTHER Psychosocial problem 19 FATHER 19 MOTHER No Pertinent Family Hx, Cancer, Diabetes, Hypertension PSH: -RIGHT KNEE SCOPE X 5 -LEFT KNEE SCOPE X 2 -TONSILLECTOMY / ADENOIDECTOMY -APPENDECTOMY -CHOLECYSTECTOMY -NASAL FRACTURE REPAIR -COCCYX REMOVAL -LEFT NEPHRECTOMY FOR MALIGNANCY -LEFT MID ABDOMEN INCISIONAL HERNIA REPAIR -DRAINAGE OF ABDOMINAL WALL ABSCESS -MULTIPLE EGD'S AND COLONOSCOPIES--LAST ONE DONE HERE 10/26/19 -HYSTERECTOMY / BILATERAL SALPINGO-OOPHORECTOMY 2007 -06/23/20--RIGHT CHEST WALL/SHOULDER INJECTION FOR THORACIC OUTLET SYNDROME--DONE IN Physical Exam Vital Signs Vital Signs - First Documented 08/15/20 08/15/20 12:48 18:10 Temp 36.4 Pulse 41 Resp 16 B/P (MAP) 149/103 (118) Pulse Ox 96 O2 Delivery Room Air Capillary Refill : Less Than 3 Seconds Height/Weight/BMI Height: 5'3.00" Weight: 246lbs. 0oz. [id number]; 47.00 BMI Method:Stated General Appearance: WD/WN, no apparent distress HEENT: PERRL/EOMI, normal ENT inspection, pharynx normal Neck: full range of motion, supple, normal inspection Respiratory: lungs clear, normal breath sounds, no respiratory distress, no accessory muscle use Cardiovascular: normal peripheral pulses, regular rate, rhythm, no edema, no murmur Peripheral Pulses: 2+ Radial Pulses (R), 2+ Radial Pulses (L) Gastrointestinal: normal bowel sounds, soft; No distended; tenderness (Epigastric and LLQ tenderness with light and deep palpation ); No hernia, No hepatomegaly, No spleenomegaly Extremities: normal range of motion, normal inspection, no pedal edema Back: normal inspection, no vertebral tenderness Neurologic/Psychiatric: no motor/sensory deficits, alert, normal mood/affect Skin: normal color, warm/dry Progress/Results/Core Measures Results/Orders Lab Results Laboratory Tests Test 08/15/20 13:05 08/15/20 13:20 Range/Units Urine Color YELLOW Urine Clarity CLEAR Urine pH 6.0 5-9 Urine Specific [place] 1.020 1.016-1.022 Urine Protein NEGATIVE NEGATIVE Urine Glucose (UA) NEGATIVE NEGATIVE Urine Ketones NEGATIVE NEGATIVE Urine Nitrite NEGATIVE NEGATIVE Urine Bilirubin NEGATIVE NEGATIVE Urine Urobilinogen 0.2 < = 1.0 MG/DL Urine Leukocyte Esterase NEGATIVE NEGATIVE Urine RBC (Auto) NEGATIVE NEGATIVE Urine RBC NONE /HPF Urine WBC RARE /HPF Urine Squamous Epithelial Cells 5-10 /HPF Urine Crystals NONE /LPF Urine Bacteria NEGATIVE /HPF Urine Casts NONE /LPF Urine Mucus NEGATIVE /LPF Urine Culture Indicated NO White Blood Count 8.3 4.3-11.0 10^3/uL Red Blood Count 4.88 3.80-5.11 10^6/uL Hemoglobin 13.3 11.5-16.0 g/dL Hematocrit 42 35-52 % Mean Corpuscular Volume 86 80-99 fL Mean Corpuscular Hemoglobin 27 25-34 pg Mean Corpuscular Hemoglobin Concent 32 32-36 g/dL Red Cell Distribution Width 14.1 10.0-14.5 % Platelet Count 232 130-400 10^3/uL Mean Platelet Volume 9.7 9.0-12.2 fL Immature Granulocyte % (Auto) 1 % Neutrophils (%) (Auto) 64 42-75 % Lymphocytes (%) (Auto) 29 12-44 % Monocytes (%) (Auto) 4 0-12 % Eosinophils (%) (Auto) 2 0-10 % Basophils (%) (Auto) 0 0-10 % Neutrophils # (Auto) 5.3 1.8-7.8 10^3/uL Lymphocytes # (Auto) 2.4 1.0-4.0 10^3/uL Monocytes # (Auto) 0.4 0.0-1.0 10^3/uL Eosinophils # (Auto) 0.2 0.0-0.3 10^3/uL Basophils # (Auto) 0.0 0.0-0.1 10^3/uL Immature Granulocyte # (Auto) 0.0 0.0-0.1 10^3/uL Sodium Level 141 135-145 MMOL/L Potassium Level 4.2 3.6-5.0 MMOL/L Chloride Level 104 98-107 MMOL/L Carbon Dioxide Level 27 21-32 MMOL/L Anion Gap 10 5-14 MMOL/L Blood Urea Nitrogen 12 7-18 MG/DL Creatinine 0.78 0.60-1.30 MG/DL Estimat Glomerular Filtration Rate > 60 BUN/Creatinine Ratio 15 Glucose Level 107 H 70-105 MG/DL Calcium Level 9.4 8.5-10.1 MG/DL Corrected Calcium 9.2 8.5-10.1 MG/DL Total Bilirubin 0.4 0.1-1.0 MG/DL Aspartate Amino Transf (AST/SGOT) 87 H 5-34 U/L Alanine Aminotransferase (ALT/SGPT) 80 H 0-55 U/L Alkaline Phosphatase 73 40-136 U/L Troponin I < 0.028 <0.028 NG/ML Total Protein 7.8 6.4-8.2 GM/DL Albumin 4.3 3.2-4.5 GM/DL Lipase 86 H 8-78 U/L Serum Test, Qualitative NEGATIVE NEGATIVE My Orders Orders - [facility] Ua Culture If Indicated (08/15/20 12:26) Comprehensive Metabolic Panel (08/15/20 13:04) Hcg,Qualitative Serum (08/15/20 13:04) Cbc With Automated Diff (08/15/20 13:04) Ct Abdomen/Pelvis W (08/15/20 13:04) Ondansetron Injection (Zofran Injectio (08/15/20 13:15) Hydromorphone Injection (Dilaudid Inject (08/15/20 13:15) Lactated Ringers (Lr 1000 Ml Iv Solution (08/15/20 13:15) Iohexol Injection (Omnipaque 350 Mg/Ml 1 (08/15/20 13:30) Received Contrast (Hold Metformin- Contr (08/15/20 13:30) Sodium Chloride Flush (Catheter Flush Sy (08/15/20 13:30) Lipase (08/15/20 13:20) Troponin I (08/15/20 13:20) Lactated Ringers (Lr 1000 Ml Iv Solution (08/15/20 16:00) Hydromorphone Injection (Dilaudid Inject (08/15/20 16:00) Promethazine Injection (Phenergan Injec (08/15/20 16:00) Medications Given in ED Current Medications Medications Dose Ordered Sig/Neal Route Start Time Stop Time Status Last Admin Dose Admin Hydromorphone HCl 0.5 mg ONCE ONCE IV 08/15/20 13:15 08/15/20 13:16 DC 08/15/20 14:02 0.5 MG Hydromorphone HCl 1 mg ONCE ONCE IV 08/15/20 16:00 08/15/20 16:01 DC 08/15/20 16:24 1 MG Iohexol 100 ml ONCE ONCE IV 08/15/20 13:30 08/15/20 13:31 DC 08/15/20 15:07 100 ML Lactated Ringer's 1,000 ml @ 0 mls/hr Q0M ONCE IV 08/15/20 13:15 08/15/20 13:26 DC 08/15/20 13:46 1,000 MLS/HR Lactated Ringer's 1,000 ml @ 0 mls/hr Q0M ONCE IV 08/15/20 16:00 08/15/20 16:01 DC 08/15/20 16:22 1,000 MLS/HR Ondansetron HCl 4 mg ONCE ONCE IVP 08/15/20 13:15 08/15/20 13:16 DC 08/15/20 13:45 4 MG Promethazine HCl 25 mg ONCE ONCE IVP 08/15/20 16:00 08/15/20 16:01 DC 08/15/20 16:24 25 MG Vital Signs/I&O 08/15/20 08/15/20 12:48 18:10 Temp 36.4 36.4 Pulse 41 69 Resp 16 16 B/P (MAP) 149/103 (118) 106/82 (118) Pulse Ox 96 95 O2 Delivery Room Air Blood Pressure Mean: 118 Progress Progress Note : Progress Note Patient examined in no acute distress. Will obtain basic labs, with lipase, CT abdomen pelvis with contrast pending renal function. Orders placed for Dilaudid 0.5mg IV push, Zofran 4mg IVP, and IV fluids. Labs reviewed and are unremarkable. Elevation in liver enzymes are at her baseline and slightly improved. Has slight elevation in lipase, which could represent subacute pancreatitis. CT abdomen pelvis shows no acute pathology, neg for acute pancreatits. Reported increase in pain and nausea. Orders placed for additional Dilaudid 1 mg IV push, Phenergan 25 mg IV, and another liter of lactated Ringer's. Reported improvement of symptoms. Reviewed discharge plan and she is agreeable with plan, all questions addressed at this time. Diagnostic Imaging Diagonstic Imaging: CT Plain Films/CT/US/NM/MRI: abdomen Comments NAME: JAYLYN DELGADO [facility] REC#: [id number] PT STATUS: REG ER : 1985 PHYSICIAN: OSVADLO CALDWELL APRN ADMIT DATE: 08/15/20/ER Signed Date of Exam:08/15/20 CT ABDOMEN/PELVIS W PROCEDURE: CT abdomen and pelvis with contrast. TECHNIQUE: Multiple contiguous axial images were obtained through the abdomen and pelvis after administration of intravenous contrast. Auto Exposure Controls were utilized during the CT exam to meet ALARA standards for radiation dose reduction. All CT scans use one or more of the following dose optimizing techniques: automated exposure control, MA and/or KvP adjustment based on patient size and exam type or iterative reconstruction. INDICATION: History of left renal cell carcinoma now complaining of a several day history of worsening pain. COMPARISON with a study 01/21/2020. FINDINGS: No acute abdominal wall defect or hernia is found. No abdominal wall or retroabdominal wall fluid collection. There is fatty infiltration of the liver, chronic. The pancreas and peripancreatic fat appeared unremarkable. No pseudocyst or other acute fluid collection. No bile duct dilatation. The spleen and adrenals are unremarkable. The left kidney is surgically absent. No mass or fluid collection within the nephrectomy bed. The bilateral adrenal glands are normal. The unobstructed right kidney appeared unremarkable. There is no ileus or bowel obstruction. There is no appendicitis or diverticulitis. No abdominal, pelvic, mesenteric or retroperitoneal lymphadenopathy. The lung bases and the bony structures nonacute. IMPRESSION: Previous left nephrectomy. Solitary right kidney unremarkable. Fatty liver without bile duct dilatation. Nonfocal nonacute pancreas. Intact abdominal wall. No fluid collection, inflammatory process or acute abnormalities identified. Dictated by: Dictated on workstation # [id number] Dict: 08/15/20 1524 Trans: 08/15/20 1658 [facility] [id number] Interpreted by: ISABELLA RAHMAN Electronically signed by: ISABELLA RAHMAN 08/15/20 1658 Reviewed: Reviewed by Me Departure Impression Primary Impression: Abdominal pain Disposition: HOME, SELF-CARE Condition: Improved Departure-Patient Inst. Decision time for Depature: 16:14 Referrals: CARMEN GIBBS MD (PCP/Family) Primary Care Physician Patient Instructions: Severe Abdominal Pain, Adult (DC) Add. Discharge Instructions: Plan: 1. Keep follow up with GI doctor as previously scheduled. 2. Continue home nausea/pain management as directed. 3. Drink clear liquids until you pain as resolved, may advance slowly. 4. Return to ER for any new or concerning symptoms. All discharge instructions reviewed with patient and/or family. Voiced understanding. [facility] Aug 15, 2020 13:04
[2020-08-15] MEDS ORDERED: ONDANSETRON 4 MG/2 ML (SDV) Z0FRAN IVP ONE (13:15)
[2020-08-15] MEDS ORDERED: HYDROmorphone 2 MG/ML VIAL (DILAUDID) IV ONE ×2 (13:15→16:00)
[2020-08-15] MEDS ORDERED: LACTATED RINGERS 1,000 ML IV ONE ×2 (13:15→16:00)
[2020-08-15 13:17] LABS: BILIRUBIN,URINE NEGATIVE (NEGATIVE); CLARITY,URINE CLEAR; COLOR,URINE YELLOW; GLUCOSE, URINE (UA) NEGATIVE (NEGATIVE); KETONES,URINE NEGATIVE (NEGATIVE); LEUKOCYTE ESTERASE ,URINE NEGATIVE (NEGATIVE); NITRITE,URINE NEGATIVE (NEGATIVE); PROTEIN,URINE NEGATIVE (NEGATIVE)
[2020-08-15 13:29] LABS: BACTERIA,URINE NEGATIVE /HPF; WBC,URINE RARE /HPF
[2020-08-15 13:30] LABS: BASOPHILS % (AUTO) 0 % (0-10); EOSINOPHILS # (AUTO) 0.2 10^3/uL (0.0-0.3); EOSINOPHILS % (AUTO) 2 % (0-10); HEMATOCRIT 42 % (35-52); HEMOGLOBIN 13.3 g/dL (11.5-16.0); LYMPHOCYTES # (AUTO) 2.4 10^3/uL (1.0-4.0); LYMPHOCYTES % (AUTO) 29 % (12-44); MEAN CORPUSCULAR HEMOGLOBIN 27 pg (25-34); MEAN CORPUSCULAR HGB CONC 32 g/dL (32-36); MEAN CORPUSCULAR VOLUME 86 fL (80-99); MEAN PLATELET VOLUME 9.7 fL (9.0-12.2); MONOCYTES # (AUTO) 0.4 10^3/uL (0.0-1.0); MONOCYTES % (AUTO) 4 % (0-12); NEUTROPHILS # (AUTO) 5.3 10^3/uL (1.8-7.8); NEUTROPHILS % (AUTO) 64 % (42-75); PLATELET COUNT 232 10^3/uL (130-400); WHITE BLOOD COUNT 8.3 10^3/uL (4.3-11.0)
[2020-08-15] MEDS ORDERED: HOLD METFORMIN - RECEIVED CONTRAST 20 ML VIAL IV SCH (13:30)
[2020-08-15] MEDS ORDERED: CATHETER FLUSH 10 ML SYR IV PRN (13:30)
[2020-08-15] MEDS ORDERED: IOHEXOL 350 MG/ML 100 ML (OMNIPAQUE 350) VIAL IV ONE (13:30)
[2020-08-15 13:45] LABS: ALBUMIN 4.3 GM/DL (3.2-4.5); CHLORIDE 104 MMOL/L (98-107); POTASSIUM 4.2 MMOL/L (3.6-5.0); SODIUM 141 MMOL/L (135-145)
[2020-08-15 13:46] LABS: CALCIUM 9.4 MG/DL (8.5-10.1)
[2020-08-15 13:47] LABS: GLUCOSE 107 MG/DL (70-105); TOTAL PROTEIN 7.8 GM/DL (6.4-8.2)
[2020-08-15 13:48] LABS: CARBON DIOXIDE 27 MMOL/L (21-32)
[2020-08-15 13:49] LABS: BILIRUBIN,TOTAL 0.4 MG/DL (0.1-1.0)
[2020-08-15 13:51] LABS: ALKALINE PHOSPHATASE 73 U/L (40-136); CREATININE SERUM 0.78 MG/DL (0.60-1.30); GFR ESTIMATED > 60
[2020-08-15 13:52] LABS: BUN/CREATININE RATIO 15
[2020-08-15 13:54] LABS: ALANINE AMINOTRANSFERASE 80 U/L (0-55); LIPASE 86 U/L (8-78)
--- NOTE | 2020-08-15 15:36 | Diagnostic Imaging Report ---
PROCEDURE: CT abdomen and pelvis with contrast. TECHNIQUE: Multiple contiguous axial images were obtained through the abdomen and pelvis after administration of intravenous contrast. Auto Exposure Controls were utilized during the CT exam to meet ALARA standards for radiation dose reduction. All CT scans use one or more of the following dose optimizing techniques: automated exposure control, MA and/or KvP adjustment based on patient size and exam type or iterative reconstruction. INDICATION: History of left renal cell carcinoma now complaining of a several day history of worsening pain. COMPARISON with a study 01/21/2020. FINDINGS: No acute abdominal wall defect or hernia is found. No abdominal wall or retroabdominal wall fluid collection. There is fatty infiltration of the liver, chronic. The pancreas and peripancreatic fat appeared unremarkable. No pseudocyst or other acute fluid collection. No bile duct dilatation. The spleen and adrenals are unremarkable. The left kidney is surgically absent. No mass or fluid collection within the nephrectomy bed. The bilateral adrenal glands are normal. The unobstructed right kidney appeared unremarkable. There is no ileus or bowel obstruction. There is no appendicitis or diverticulitis. No abdominal, pelvic, mesenteric or retroperitoneal lymphadenopathy. The lung bases and the bony structures nonacute. IMPRESSION: Previous left nephrectomy. Solitary right kidney unremarkable. Fatty liver without bile duct dilatation. Nonfocal nonacute pancreas. Intact abdominal wall. No fluid collection, inflammatory process or acute abnormalities identified. Dictated by: Dictated on workstation # [id number]
[2020-08-15] MEDS ORDERED: PROMETHAZINE INJ 25 MG/ML (PHENERGAN) AMP IVP ONE (16:00)
[2020-08-15 18:10] VITALS: BP 106/82
== END 2020-08-15 18:10 | disposition home or self-care (01) ==
LOC: EDUNIT# 10:59 → ER 11:01
DX: R10.13 Epigastric pain (principal); J45.909 Unspecified asthma, uncomplicated; F32.9 Major depressive disorder, single episode, unspecified; G89.29 Other chronic pain; M54.9 Dorsalgia, unspecified; Z88.0 Allergy status to penicillin; Z88.1 Allergy status to other antibiotic agents; Z88.5 Allergy status to narcotic agent; Z88.8 Allergy status to other drugs, medicaments and biological substances; Z83.3 Family history of diabetes mellitus; Z85.528 Personal history of other malignant neoplasm of kidney; Z82.49 Family history of ischemic heart disease and other diseases of the circulatory system; Z79.52 Long term (current) use of systemic steroids; Z79.891 Long term (current) use of opiate analgesic
CPT/HCPCS: 36415; 74177; 80053; 81000; 83690; 84484; 84703; 85025

== ENCOUNTER 2020-08-19 14:22 | Emergency (ER) | payer MEDICARE, MEDICAID ==
[~2020-08-19] VITALS: Ht 160 cm; Wt 127.0 kg
[~2020-08-19 14:22] MED LIST changes: -POLY17PO31; +POLY17PO54
[2020-08-19 15:12] LABS: BILIRUBIN,URINE NEGATIVE (NEGATIVE); CLARITY,URINE CLEAR; COLOR,URINE YELLOW; GLUCOSE, URINE (UA) NEGATIVE (NEGATIVE); KETONES,URINE NEGATIVE (NEGATIVE); LEUKOCYTE ESTERASE ,URINE NEGATIVE (NEGATIVE); NITRITE,URINE NEGATIVE (NEGATIVE); PH,URINE 6.5 (5-9); PROTEIN,URINE NEGATIVE (NEGATIVE)
[2020-08-19] MEDS ORDERED: morphine INJ 10 MG/ML 1ML (SYR OR VIAL) IVP STA (15:14)
--- NOTE | 2020-08-19 15:14 | ED Abdominal Pain ---
General Chief Complaint: Abdominal/GI Problems Stated Complaint: VOMITING YELLOW, CONSTIPATION Nursing Triage Note: Pt to triage with c/o abd pain/N/V/constipations x 5 days. Pt reports no bowel movement for a week. C/o "pain all over". Pt reports taking zofran, scop patch, phenergyn without relief. Sepsis Screen: No Definite Risk Source of Information: Patient Exam Limitations: No Limitations History of Present Illness Date Seen by Provider: Aug 19, 2020 Time Seen by Provider: 14:52 Initial Comments The patient presents to the ER by private conveyance from home with chief complaint she has had 1 week of inability to have a bowel movement despite MiraLAX, Dulcolax, Colace. She presented to the ER about 5 or 6 days ago because she was having some bloating, distention and abdominal discomfort and had a CT of the abdomen pelvis with IV contrast which did not reveal any pathology. She has extensive history of abdominal surgeries. She went to her primary care team and they referred her to go see her doctor who takes care of her history of pancreatitis. The GI doctor was not available but the nurse recommended she go to the ER yesterday to be examined. She says she really want to go to [facility] so she went there instead last night and today she is not any better. She has had nausea and vomiting of thin yellow fluid today. Allergies and Home Medications Allergies Coded Allergies: fentanyl (Verified Allergy, Unknown, 10/16/18) meperidine (Verified Allergy, Unknown, 10/16/18) penicillin G (Verified Allergy, Unknown, 10/16/18) vancomycin (Verified Adverse Reaction, Intermediate, severe itching, 10/26/19) Home Medications Acetaminophen 500 Mg Tablet, 1,000 MG PO Q8H PRN for PAIN-MILD (1-4), (Reported) Cefdinir 300 Mg Capsule, 300 MG PO BID Prescribed by: YAN CHAPARRO on 07/15/20 1907 Cyclobenzaprine HCl 10 Mg Tablet, 10 MG PO TID PRN for PAIN-MODERATE (5-7) Prescribed by: OSVALDO CALDWELL on 05/14/20 1612 Diphenhydramine HCl 25 Mg Capsule, 25 MG PO HS PRN for SLEEP, (Reported) Estradiol 1 Mg Tablet, 1 MG PO HS, (Reported) Fluticasone Propionate 9.9 Ml [place].susp, 2 SPRAY NS DAILY 2 SPRAYS PER NOSTRIL DAILY X 2 DAYS THEN 1 SPRAY DAILY Prescribed by: YAN CHAPARRO on 07/15/201906 Hydrocodone/Acetaminophen 1 Each Tablet, 2 EACH PO Q6H PRN for PAIN-MILD (1-4), (Reported) Hydrocodone/Acetaminophen 1 Each Tablet, 1 EACH PO Q6H PRN for PAIN-BREAKTHROUGH Prescribed by: OSVALDO CALDWELL on 05/14/201611 L. Acidophilus/Pectin, [place] 1 Each Capsule, 2 EACH PO QID Prescribed by: YNA CHAPARRO on 07/15/201918 Levofloxacin 500 Mg Tablet, 500 MG PO DAILY Prescribed by: GEORGES FINN on 07/28/201811 Loratadine/Pseudoephedrine 1 Each Tab.er.12h, 1 EACH PO BID Prescribed by: YAN CHAPARRO on 07/15/201906 Methocarbamol 750 Mg Tablet, 750-1,500 MG PO Q6H PRN for PAIN-MILD (1-4) Prescribed by: GEORGES FINN on 02/10/20 125 Methylprednisolone 4 Mg Tab.ds.pk, 4 MG PO UD PER DOSE PACK INSTRUCTIONS Prescribed by: GEORGES FINN on 02/10/20 125 Methylprednisolone 4 Mg Tab.ds.pk, 4 MG PO UD PER DOSE PACK INSTRUCTIONS Prescribed by: YAN CHAPARRO on 07/15/201906 Multivitamin 1 Each Tablet, 1 EACH PO DAILY, (Reported) Ondansetron 8 Mg Tab.rapdis, 8 MG PO Q8H PRN for NAUSEA/VOMITING, (Reported) Ondansetron HCl 8 Mg Tablet, 8-16 MG PO Q6H PRN for NAUSEA-1ST LINE Prescribed by: MAKAYLA HAWKINS on 01/21/201620 Promethazine HCl 25 Mg Tablet, 25 MG PO Q6H PRN for NAUSEA/VOMITING Prescribed by: MAKAYLA HAWKINS on 01/21/20 162 Promethazine HCl 25 Mg Tablet, 25 MG PO Q8H PRN for NAUSEA/VOMITING Prescribed by: OSVALDO CALDWELL on 05/14/20 161 Ropinirole HCl 4 Mg Tablet, 4 MG PO HS, (Reported) Scopolamine 1 Each Patch.td72, 1 EACH TD Q72H, (Reported) Sertraline HCl 50 Mg Tablet, 50 MG PO HS, (Reported) Sulfamethoxazole/Trimethoprim 1 Each Tablet, 1 EACH PO BID Prescribed by: IZABELA MAC on 04/30/20 1027 Patient Home Medication List Home Medication List Reviewed: Yes Review of Systems Review of Systems Constitutional: No chills, No diaphoresis, No fever EENTM: No Blurred Vision, No Double Vision Respiratory: Denies Cough, Denies Shortness of Air Cardiovascular: Denies Chest Pain, Denies Lightheadedness Gastrointestinal: See HPI, Abdomen Distended, Abdominal Pain; Denies Blood Streaked Stools; Constipated; Denies Diarrhea; Nausea, Poor Fluid Intake, Vomiting Genitourinary: Denies Burning, Denies Discharge Musculoskeletal: No back pain, No joint pain Skin: No pruritus, No rash Psychiatric/Neurological: Denies Headache, Denies Numbness All Other Systems Reviewed Negative Unless Noted: Yes Past Oechtwx-Czexie-Ckmeko Hx Patient Social History Alcohol Use: Denies Use Type Used: Cigarettes 2nd Hand Smoke Exposure: No Recent Infectious Disease Expo: No Recent Hopitalizations: No Immunizations Up To Date Tetanus Booster (TDap): Less than 5yrs PED Vaccines UTD: No Date of Pneumonia Vaccine: May 17, 2012 Date of Influenza Vaccine: Jul 03, 2012 Seasonal Allergies Seasonal Allergies: No Past Medical History Surgeries: Yes (hernia repair, knee scopes) Adenoidectomy, Appendectomy, Gallbladder, 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, Nephrectomy, Orthopedic, Tonsillectomy Respiratory: Yes Asthma Currently Using CPAP: No Currently Using BIPAP: No Cardiac: Yes Hypertension Neurological: Yes Headaches /Migraines 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: Yes (HX ENDOMETRIOSIS ) 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: 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 Sexually Transmitted Disease: No HIV/AIDS: No Genitourinary: No UTI-Chronic Gastrointestinal: Yes Abdominal Hernia, Gastroesophageal Reflux, Liver Disease/Jaundice, Obstructive Bowel, Pancreatitis, Polyps Musculoskeletal: Yes (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) Chronic Back Pain Endocrine: No HEENT: No Loss of Vision: Denies Hearing Impairment: Denies Cancer: Yes Kidney Did You Recieve Any Treatments: Yes What Type of Treatment Did You: Surgical Intervention Psychosocial: Yes Depression Integumentary: No Herpes Blood Disorders: No Adverse Reaction/Blood Tranf: No (N/A) Family Medical History Cardiovascular disease 19 FATHER Completed stroke 19 FATHER Diabetes mellitus 19 FATHER Hypercholesterolemia 19 FATHER 19 MOTHER Hypertension 19 FATHER 19 MOTHER Neoplasm 19 MOTHER Psychosocial problem 19 FATHER 19 MOTHER No Pertinent Family Hx, Cancer, Diabetes, Hypertension PSH: -RIGHT KNEE SCOPE X 5 -LEFT KNEE SCOPE X 2 -TONSILLECTOMY / ADENOIDECTOMY -APPENDECTOMY -CHOLECYSTECTOMY -NASAL FRACTURE REPAIR -COCCYX REMOVAL -LEFT NEPHRECTOMY FOR MALIGNANCY -LEFT MID ABDOMEN INCISIONAL HERNIA REPAIR -DRAINAGE OF ABDOMINAL WALL ABSCESS -MULTIPLE EGD'S AND COLONOSCOPIES--LAST ONE DONE HERE 10/26/19 -HYSTERECTOMY / BILATERAL SALPINGO-OOPHORECTOMY 2007 -06/23/20--RIGHT CHEST WALL/SHOULDER INJECTION FOR THORACIC OUTLET SYNDROME--DONE IN Physical Exam Vital Signs Vital Signs - First Documented 08/19/20 14:35 Temp 37.2 Pulse 86 Resp 17 B/P (MAP) 133/71 (91) Pulse Ox 98 O2 Delivery Room Air Capillary Refill : Less Than 3 Seconds Height/Weight/BMI Height: 5'3.00" Weight: 246lbs. 0oz. [id number]; 49.00 BMI Method:Stated General Appearance: WD/WN, mild distress HEENT: PERRL/EOMI, pharynx normal Neck: full range of motion, normal inspection Respiratory: lungs clear, normal breath sounds, no respiratory distress, no accessory muscle use Cardiovascular: normal peripheral pulses, regular rate, rhythm Peripheral Pulses: 2+ Radial Pulses (R), 2+ Radial Pulses (L) Gastrointestinal: normal bowel sounds (Quiescent), distended, tenderness (All 4 quadrants) Neurologic/Psychiatric: alert, normal mood/affect, oriented x 3 Skin: normal color, warm/dry Progress/Results/Core Measures Results/Orders Lab Results Laboratory Tests Test 08/19/20 14:50 08/19/20 16:40 Range/Units Urine Color YELLOW Urine Clarity CLEAR Urine pH 6.5 5-9 Urine Specific [place] 1.020 1.016-1.022 Urine Protein NEGATIVE NEGATIVE Urine Glucose (UA) NEGATIVE NEGATIVE Urine Ketones NEGATIVE NEGATIVE Urine Nitrite NEGATIVE NEGATIVE Urine Bilirubin NEGATIVE NEGATIVE Urine Urobilinogen 0.2 < = 1.0 MG/DL Urine Leukocyte Esterase NEGATIVE NEGATIVE Urine RBC (Auto) NEGATIVE NEGATIVE Urine RBC NONE /HPF Urine WBC NONE /HPF Urine Squamous Epithelial Cells 5-10 /HPF Urine Crystals NONE /LPF Urine Bacteria NEGATIVE /HPF Urine Casts NONE /LPF Urine Mucus NEGATIVE /LPF Urine Culture Indicated NO White Blood Count 9.1 4.3-11.0 10^3/uL Red Blood Count 5.02 3.80-5.11 10^6/uL Hemoglobin 13.9 11.5-16.0 g/dL Hematocrit 43 35-52 % Mean Corpuscular Volume 86 80-99 fL Mean Corpuscular Hemoglobin 28 25-34 pg Mean Corpuscular Hemoglobin Concent 32 32-36 g/dL Red Cell Distribution Width 14.0 10.0-14.5 % Platelet Count 232 130-400 10^3/uL Mean Platelet Volume 9.3 9.0-12.2 fL Immature Granulocyte % (Auto) 1 % Neutrophils (%) (Auto) 67 42-75 % Lymphocytes (%) (Auto) 26 12-44 % Monocytes (%) (Auto) 5 0-12 % Eosinophils (%) (Auto) 2 0-10 % Basophils (%) (Auto) 0 0-10 % Neutrophils # (Auto) 6.1 1.8-7.8 10^3/uL Lymphocytes # (Auto) 2.3 1.0-4.0 10^3/uL Monocytes # (Auto) 0.5 0.0-1.0 10^3/uL Eosinophils # (Auto) 0.2 0.0-0.3 10^3/uL Basophils # (Auto) 0.0 0.0-0.1 10^3/uL Immature Granulocyte # (Auto) 0.1 0.0-0.1 10^3/uL Sodium Level 142 135-145 MMOL/L Potassium Level 3.8 3.6-5.0 MMOL/L Chloride Level 104 98-107 MMOL/L Carbon Dioxide Level 26 21-32 MMOL/L Anion Gap 12 5-14 MMOL/L Blood Urea Nitrogen 12 7-18 MG/DL Creatinine 0.92 0.60-1.30 MG/DL Estimat Glomerular Filtration Rate > 60 BUN/Creatinine Ratio 13 Glucose Level 111 H 70-105 MG/DL Calcium Level 9.7 8.5-10.1 MG/DL Corrected Calcium 9.3 8.5-10.1 MG/DL Total Bilirubin 0.6 0.1-1.0 MG/DL Aspartate Amino Transf (AST/SGOT) 61 H 5-34 U/L Alanine Aminotransferase (ALT/SGPT) 61 H 0-55 U/L Alkaline Phosphatase 79 40-136 U/L C-Reactive Protein High Sensitivity 1.07 H 0.00-0.50 MG/DL Total Protein 8.1 6.4-8.2 GM/DL Albumin 4.5 3.2-4.5 GM/DL Amylase Level 73 25-125 U/L Lipase 54 8-78 U/L My Orders Orders - MAKAYLA HAWKINS Cbc With Automated Diff (08/19/20 15:04) Comprehensive Metabolic Panel (08/19/20 15:04) Hs C Reactive Protein (08/19/20 15:04) Ua Culture If Indicated (08/19/20 15:04) Diatrizoate Meglum/Sodium 37% (Gastrogra (08/19/20 15:15) Ondansetron Injection (Zofran Injectio (08/19/20 15:15) Promethazine Injection (Phenergan Injec (08/19/20 15:15) Lipase (08/19/20 15:04) Morphine Injection (Morphine Injection (08/19/20 15:14) Amylase (08/19/20 15:14) Ct Abdomen/Pelvis Wo (08/19/20 15:04) Ondansetron Injection (Zofran Injectio (08/19/20 17:15) Medications Given in ED Current Medications Medications Dose Ordered Sig/Neal Route Start Time Stop Time Status Last Admin Dose Admin Diatrizoate Meglum/ Diatrizoate Sod 120 ml ONCE ONCE PO 08/19/20 15:15 08/19/20 15:16 DC 08/19/20 15:19 50 ML Ondansetron HCl 8 mg ONCE ONCE IVP 08/19/20 15:15 08/19/20 15:16 DC 08/19/20 15:33 8 MG Ondansetron HCl 8 mg ONCE ONCE IVP 08/19/20 17:15 08/19/20 17:16 DC 08/19/20 17:23 8 MG Promethazine HCl 25 mg ONCE ONCE IVP 08/19/20 15:15 08/19/20 15:16 DC 08/19/20 15:33 25 MG Vital Signs/I&O 08/19/20 14:35 Temp 37.2 Pulse 86 Resp 17 B/P (MAP) 133/71 (91) Pulse Ox 98 O2 Delivery Room Air Blood Pressure Mean: 91 Progress Progress Note : Time: 15:13 Progress Note Patient is status post nephrectomy so we will give her a oral contrast CT of the abdomen pelvis to rule out obstruction, ileus, obstipation etc. We will get a lipase and amylase and give her some nausea medicines and IV fluids. 2 mg mo rphine IV for pain. Diagnostic Imaging Diagonstic Imaging: CT (Oral contrast) Plain Films/CT/US/NM/MRI: abdomen, pelvis Comments NAME: JAYLYN DELGADO [facility] REC#: [id number] PT STATUS: REG ER : 1985 PHYSICIAN: MAKAYLA HAWKINS MD ADMIT DATE: 08/19/20/ER Draft Date of Exam:08/19/20 CT ABDOMEN/PELVIS WO INDICATION: Bloating and vomiting, abdominal pain, history of multiple surgeries including hernia repair and left nephrectomy and history of kidney cancer TECHNIQUE: Multiple contiguous axial images were obtained through the abdomen and pelvis without the use of intravenous contrast. Auto Exposure Controls were utilized during the CT exam to meet ALARA standards for radiation dose reduction. Comparison made to the previous study of 08/15/2020. The visualized portions of the lung bases are clear. There is an area of thickening along left hemidiaphragm which is stable compared to 02/11/2019 and is therefore probably benign finding. There is no pleural fluid or free intraperitoneal air. The liver shows diffuse fatty infiltration with no focal lesion. Patient has had previous cholecystectomy. The spleen appears unremarkable. There are accessory spleens in the splenic hilum. The adrenals and pancreas appear normal. The patient has had prior left nephrectomy. The right kidney appears unremarkable. There is no retroperitoneal mass or adenopathy. There is no ascites or abnormal fluid collection. Visualized bowel loops show no sign of obstruction or bowel wall thickening. There is no pelvic mass, patient has had previous hysterectomy. There is no adenopathy in the pelvis. There are postoperative changes in the intra-abdominal wall without evidence of recurrent hernia. IMPRESSION: Evidence of previous left nephrectomy and hysterectomy. There is no sign of bowel obstruction or overt inflammatory change. There is fatty infiltration of the liver. Findings are without change compared to the previous study of 08/15/2020. Dictated on workstation # [id number] Dict: 08/19/20 1655 Trans: 08/19/20 1703 [facility] [id number] Interpreted by: BHUPENDRA WONG MD Electronically signed by: Reviewed: Reviewed by Me Departure Impression Primary Impression: Constipation Qualified Codes: K59.00 - Constipation, unspecified Disposition: HOME, SELF-CARE Condition: Stable Departure-Patient Inst. Decision time for Depature: 18:05 Referrals: CARMEN GIBBS MD (PCP/Family) Primary Care Physician Patient Instructions: Constipation, Adult ED Add. Discharge Instructions: Drink plenty of fluids. MiraLAX once or twice a day. Follow-up with your primary care team for further evaluation. Return to the ER if you develop fevers, intractable pain or vomiting. All discharge instructions reviewed with patient and/or family. Voiced understanding. MAKAYLA HAWKINS Aug 19, 2020 15:14
[2020-08-19] MEDS ORDERED: DIATRIZOATE MEGLUM/SODIUM 37% 120 ML (GASTROGRAFIN) PO ONE ×2 (15:15→15:30)
[2020-08-19] MEDS ORDERED: ONDANSETRON 4 MG/2 ML (SDV) Z0FRAN IVP ONE ×2 (15:15→17:15)
[2020-08-19] MEDS ORDERED: PROMETHAZINE INJ 25 MG/ML (PHENERGAN) AMP IVP ONE (15:15)
[2020-08-19 15:21] LABS: BACTERIA,URINE NEGATIVE /HPF
[2020-08-19 16:51] LABS: BASOPHILS % (AUTO) 0 % (0-10); EOSINOPHILS # (AUTO) 0.2 10^3/uL (0.0-0.3); EOSINOPHILS % (AUTO) 2 % (0-10); HEMATOCRIT 43 % (35-52); HEMOGLOBIN 13.9 g/dL (11.5-16.0); LYMPHOCYTES # (AUTO) 2.3 10^3/uL (1.0-4.0); LYMPHOCYTES % (AUTO) 26 % (12-44); MEAN CORPUSCULAR HEMOGLOBIN 28 pg (25-34); MEAN CORPUSCULAR HGB CONC 32 g/dL (32-36); MEAN CORPUSCULAR VOLUME 86 fL (80-99); MEAN PLATELET VOLUME 9.3 fL (9.0-12.2); MONOCYTES # (AUTO) 0.5 10^3/uL (0.0-1.0); MONOCYTES % (AUTO) 5 % (0-12); NEUTROPHILS # (AUTO) 6.1 10^3/uL (1.8-7.8); NEUTROPHILS % (AUTO) 67 % (42-75); PLATELET COUNT 232 10^3/uL (130-400); WHITE BLOOD COUNT 9.1 10^3/uL (4.3-11.0)
[2020-08-19 16:56] LABS: ALBUMIN 4.5 GM/DL (3.2-4.5); CHLORIDE 104 MMOL/L (98-107); POTASSIUM 3.8 MMOL/L (3.6-5.0); SODIUM 142 MMOL/L (135-145)
[2020-08-19 16:57] LABS: AMYLASE 73 U/L (25-125); CALCIUM 9.7 MG/DL (8.5-10.1)
[2020-08-19 16:58] LABS: GLUCOSE 111 MG/DL (70-105)
[2020-08-19 16:59] LABS: TOTAL PROTEIN 8.1 GM/DL (6.4-8.2)
[2020-08-19 17:00] LABS: BILIRUBIN,TOTAL 0.6 MG/DL (0.1-1.0); CARBON DIOXIDE 26 MMOL/L (21-32)
[2020-08-19 17:02] LABS: ALKALINE PHOSPHATASE 79 U/L (40-136); CREATININE SERUM 0.92 MG/DL (0.60-1.30); GFR ESTIMATED > 60
[2020-08-19 17:03] LABS: BUN/CREATININE RATIO 13
--- NOTE | 2020-08-19 17:03 | Diagnostic Imaging Report ---
INDICATION: Bloating and vomiting, abdominal pain, history of multiple surgeries including hernia repair and left nephrectomy and history of kidney cancer TECHNIQUE: Multiple contiguous axial images were obtained through the abdomen and pelvis without the use of intravenous contrast. Auto Exposure Controls were utilized during the CT exam to meet ALARA standards for radiation dose reduction. Comparison made to the previous study of 08/15/2020. The visualized portions of the lung bases are clear. There is an area of thickening along left hemidiaphragm which is stable compared to 02/11/2019 and is therefore probably benign finding. There is no pleural fluid or free intraperitoneal air. The liver shows diffuse fatty infiltration with no focal lesion. Patient has had previous cholecystectomy. The spleen appears unremarkable. There are accessory spleens in the splenic hilum. The adrenals and pancreas appear normal. The patient has had prior left nephrectomy. The right kidney appears unremarkable. There is no retroperitoneal mass or adenopathy. There is no ascites or abnormal fluid collection. Visualized bowel loops show no sign of obstruction or bowel wall thickening. There is no pelvic mass, patient has had previous hysterectomy. There is no adenopathy in the pelvis. There are postoperative changes in the intra-abdominal wall without evidence of recurrent hernia. IMPRESSION: Evidence of previous left nephrectomy and hysterectomy. There is no sign of bowel obstruction or overt inflammatory change. There is fatty infiltration of the liver. Findings are without change compared to the previous study of 08/15/2020. Dictated by: Dictated on workstation # [id number]
[2020-08-19 17:05] LABS: ALANINE AMINOTRANSFERASE 61 U/L (0-55)
[2020-08-19 17:06] LABS: LIPASE 54 U/L (8-78)
[2020-08-19 18:13] VITALS: BP 133/71
== END 2020-08-19 18:14 | disposition home or self-care (01) ==
LOC: EDUNIT# 14:22 → ER 14:23
DX: K59.00 Constipation, unspecified (principal); J45.909 Unspecified asthma, uncomplicated; F32.9 Major depressive disorder, single episode, unspecified; G89.29 Other chronic pain; M54.9 Dorsalgia, unspecified; Z88.5 Allergy status to narcotic agent; Z88.0 Allergy status to penicillin; Z88.1 Allergy status to other antibiotic agents; Z88.8 Allergy status to other drugs, medicaments and biological substances; Z85.528 Personal history of other malignant neoplasm of kidney; Z82.49 Family history of ischemic heart disease and other diseases of the circulatory system; Z83.3 Family history of diabetes mellitus; Z79.891 Long term (current) use of opiate analgesic; Z79.52 Long term (current) use of systemic steroids
CPT/HCPCS: 36415; 74176; 80053; 81000; 82150; 83690; 85025; 86141

== ENCOUNTER 2020-09-05 17:44 | Emergency (ER) | payer MEDICARE, MEDICAID ==
[~2020-09-05] VITALS: Ht 157 cm; Wt 120.0 kg
[2020-09-05] MEDS ORDERED: LACTATED RINGERS 1,000 ML IV STA (18:37)
--- NOTE | 2020-09-05 18:44 | ED GI ---
General Chief Complaint: Abdominal/GI Problems Stated Complaint: VOMITING Nursing Triage Note: PT PRESENTS TO ED FOR COMPLAINTS OF N/V X 3 WEEKS. PT REPORTS SHE WAS SEEN AT AND DISCHARGED ON 09/02 FOR SAME S/S. Sepsis Screen: No Definite Risk Source of Information: Patient Exam Limitations: No Limitations History of Present Illness Date Seen by Provider: Sep 05, 2020 Time Seen by Provider: 18:20 Initial Comments The patient reports to the ER by private conveyance from home with chief complaint of abdominal discomfort nausea and vomiting with anything she takes by mouth. She says she has been trying to just drink water and cannot tolerate that. She was released from 4 days ago after a 1 week admission for her chronic pancreatitis. She never had elevations in her lipase or amylase and was under the care of a exchange mechanic. She says they ran several tests including ultrasounds MRIs, EGD as well as emptying studies and did not find a source for her problems. She said that her liver enzymes were elevated and they referred her to a liver specialist and started her on Xifaxan. Patient says she was sent home with 8 mg Zofran tablets to take every 4 hours and Phenergan for every 6 hours which she has been taking with poor results. She says never she gets it parenterally however the medicine works well. She does not feel hungry. She had 3 gallons of GoLYTELY while she was at and had no problems passing stools at any time. She is concerned that the previous mesh is placed may be causing some adhesions or intestinal blockage however they were unable to discover any blockage on any of the examination at . She called her primary care provider and was told she will not be in office again until Saturday. She called the rat culturist who admitted her at and was advised to come to the ER to be evaluated. Allergies and Home Medications Allergies Coded Allergies: fentanyl (Verified Allergy, Unknown, 10/16/18) meperidine (Verified Allergy, Unknown, 10/16/18) penicillin G (Verified Allergy, Unknown, 10/16/18) trimethobenzamide (Unverified Allergy, Unknown, 09/05/20) vancomycin (Verified Adverse Reaction, Intermediate, severe itching, 10/26/19) Home Medications Acetaminophen 500 Mg Tablet, 1,000 MG PO Q8H PRN for PAIN-MILD (1-4), (Reported) Cefdinir 300 Mg Capsule, 300 MG PO BID Prescribed by: YAN CHAPARRO on 07/15/201906 Cyclobenzaprine HCl 10 Mg Tablet, 10 MG PO TID PRN for PAIN-MODERATE (5-7) Prescribed by: OSVALDO CALDWELL on 05/14/20 161 Diphenhydramine HCl 25 Mg Capsule, 25 MG PO HS PRN for SLEEP, (Reported) Estradiol 1 Mg Tablet, 1 MG PO HS, (Reported) Fluticasone Propionate 9.9 Ml [place].susp, 2 SPRAY NS DAILY 2 SPRAYS PER NOSTRIL DAILY X 2 DAYS THEN 1 SPRAY DAILY Prescribed by: YAN CHAPARRO on 07/15/201906 Hydrocodone/Acetaminophen 1 Each Tablet, 2 EACH PO Q6H PRN for PAIN-MILD (1-4), (Reported) Hydrocodone/Acetaminophen 1 Each Tablet, 1 EACH PO Q6H PRN for PAIN-BREAKTHROUGH Prescribed by: OSVALDO CALDWELL on 05/14/201611 L. Acidophilus/Pectin, [place] 1 Each Capsule, 2 EACH PO QID Prescribed by: YAN CHAPARRO on 07/15/201918 Levofloxacin 500 Mg Tablet, 500 MG PO DAILY Prescribed by: GEORGES FINN on 07/28/201811 Loratadine/Pseudoephedrine 1 Each Tab.er.12h, 1 EACH PO BID Prescribed by: YAN CHAPARRO on 07/15/201906 Methocarbamol 750 Mg Tablet, 750-1,500 MG PO Q6H PRN for PAIN-MILD (1-4) Prescribed by: GEORGES FINN on 02/10/20 125 Methylprednisolone 4 Mg Tab.ds.pk, 4 MG PO UD PER DOSE PACK INSTRUCTIONS Prescribed by: GEORGES FINN on 02/10/20 125 Methylprednisolone 4 Mg Tab.ds.pk, 4 MG PO UD PER DOSE PACK INSTRUCTIONS Prescribed by: YAN CHAPARRO on 07/15/201906 Multivitamin 1 Each Tablet, 1 EACH PO DAILY, (Reported) Ondansetron 8 Mg Tab.rapdis, 8 MG PO Q8H PRN for NAUSEA/VOMITING, (Reported) Ondansetron HCl 8 Mg Tablet, 8-16 MG PO Q6H PRN for NAUSEA-1ST LINE Prescribed by: MAKAYLA HAWKINS on 01/21/20 1621 Promethazine HCl 25 Mg Tablet, 25 MG PO Q6H PRN for NAUSEA/VOMITING Prescribed by: MAKAYLA HAWKINS on 01/21/20 1621 Promethazine HCl 25 Mg Tablet, 25 MG PO Q8H PRN for NAUSEA/VOMITING Prescribed by: OSVALDO CALDWELL on 05/14/20 1618 Ropinirole HCl 4 Mg Tablet, 4 MG PO HS, (Reported) Scopolamine 1 Each Patch.td72, 1 EACH TD Q72H, (Reported) Sertraline HCl 50 Mg Tablet, 50 MG PO HS, (Reported) Sulfamethoxazole/Trimethoprim 1 Each Tablet, 1 EACH PO BID Prescribed by: IZABELA MAC on 04/30/20 1027 Patient Home Medication List Home Medication List Reviewed: Yes Review of Systems Review of Systems Constitutional: No chills, No fever EENTM: No Blurred Vision, No Double Vision Respiratory: Denies Cough, Denies Shortness of Air Cardiovascular: Denies Chest Pain, Denies Lightheadedness Gastrointestinal: See HPI; Denies Abdominal Pain, Denies Diarrhea; Nausea, Poor Fluid Intake, Vomiting Genitourinary: Denies Burning, Denies Discharge, Denies Drainage Musculoskeletal: No back pain, No joint pain Skin: No pruritus, No rash All Other Systems Reviewed Negative Unless Noted: Yes Past Udleqmq-Xgxsud-Pwyxry Hx Patient Social History Alcohol Use: Denies Use Smoking Status: Former Smoker Type Used: Cigarettes 2nd Hand Smoke Exposure: No Recent Infectious Disease Expo: No Recent Hopitalizations: No Immunizations Up To Date Tetanus Booster (TDap): Less than 5yrs PED Vaccines UTD: No Date of Pneumonia Vaccine: May 17, 2012 Date of Influenza Vaccine: Jul 03, 2012 Seasonal Allergies Seasonal Allergies: No Past Medical History Surgeries: Yes (hernia repair, knee scopes) Adenoidectomy, Appendectomy, Gallbladder, 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, Nephrectomy, Orthopedic, Tonsillectomy Respiratory: Yes Asthma Currently Using CPAP: No Currently Using BIPAP: No Cardiac: Yes Hypertension Neurological: Yes Headaches /Migraines 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: Yes (HX ENDOMETRIOSIS ) 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: 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 Sexually Transmitted Disease: No HIV/AIDS: No Genitourinary: No UTI-Chronic Gastrointestinal: Yes Abdominal Hernia, Gastroesophageal Reflux, Liver Disease/Jaundice, Obstructive Bowel, Pancreatitis, Polyps Musculoskeletal: Yes (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) Chronic Back Pain Endocrine: No HEENT: No Loss of Vision: Denies Hearing Impairment: Denies Cancer: Yes Kidney Did You Recieve Any Treatments: Yes What Type of Treatment Did You: Surgical Intervention Psychosocial: Yes Anxiety, Depression Integumentary: No Herpes Blood Disorders: No Adverse Reaction/Blood Tranf: No (N/A) Family Medical History Cardiovascular disease 19 FATHER Completed stroke 19 FATHER Diabetes mellitus 19 FATHER Hypercholesterolemia 19 FATHER 19 MOTHER Hypertension 19 FATHER 19 MOTHER Neoplasm 19 MOTHER Psychosocial problem 19 FATHER 19 MOTHER No Pertinent Family Hx, Cancer, Diabetes, Hypertension PSH: -RIGHT KNEE SCOPE X 5 -LEFT KNEE SCOPE X 2 -TONSILLECTOMY / ADENOIDECTOMY -APPENDECTOMY -CHOLECYSTECTOMY -NASAL FRACTURE REPAIR -COCCYX REMOVAL -LEFT NEPHRECTOMY FOR MALIGNANCY -LEFT MID ABDOMEN INCISIONAL HERNIA REPAIR -DRAINAGE OF ABDOMINAL WALL ABSCESS -MULTIPLE EGD'S AND COLONOSCOPIES--LAST ONE DONE HERE 10/26/19 -HYSTERECTOMY / BILATERAL SALPINGO-OOPHORECTOMY 2007 -06/23/20--RIGHT CHEST WALL/SHOULDER INJECTION FOR THORACIC OUTLET SYNDROME--DONE IN Physical Exam Vital Signs Vital Signs - First Documented 09/05/20 18:08 Temp 36.0 Pulse 95 Resp 18 B/P (MAP) 141/89 (106) Pulse Ox 97 Capillary Refill : Less Than 3 Seconds Height/Weight/BMI Height: 5'3.00" Weight: 246lbs. 0oz. [id number]; 48.00 BMI Method:Stated General Appearance: WD/WN, no apparent distress HEENT: PERRL/EOMI, pharynx normal Neck: non-tender, full range of motion, normal inspection Respiratory: lungs clear, normal breath sounds, no respiratory distress, no accessory muscle use Cardiovascular: normal peripheral pulses, regular rate, rhythm Peripheral Pulses: 2+ Radial Pulses (R), 2+ Radial Pulses (L) Gastrointestinal: normal bowel sounds, non tender, soft, no organomegaly Extremities: non-tender, normal inspection Neurologic/Psychiatric: alert, oriented x 3 Progress/Results/Core Measures Results/Orders Lab Results Laboratory Tests Test 09/05/20 18:50 09/05/20 19:20 Range/Units White Blood Count 8.3 4.3-11.0 10^3/uL Red Blood Count 4.57 3.80-5.11 10^6/uL Hemoglobin 12.6 11.5-16.0 g/dL Hematocrit 39 35-52 % Mean Corpuscular Volume 85 80-99 fL Mean Corpuscular Hemoglobin 28 25-34 pg Mean Corpuscular Hemoglobin Concent 33 32-36 g/dL Red Cell Distribution Width 13.8 10.0-14.5 % Platelet Count 165 130-400 10^3/uL Mean Platelet Volume 10.5 9.0-12.2 fL Immature Granulocyte % (Auto) 1 % Neutrophils (%) (Auto) 59 42-75 % Lymphocytes (%) (Auto) 31 12-44 % Monocytes (%) (Auto) 6 0-12 % Eosinophils (%) (Auto) 3 0-10 % Basophils (%) (Auto) 1 0-10 % Neutrophils # (Auto) 4.9 1.8-7.8 10^3/uL Lymphocytes # (Auto) 2.6 1.0-4.0 10^3/uL Monocytes # (Auto) 0.5 0.0-1.0 10^3/uL Eosinophils # (Auto) 0.2 0.0-0.3 10^3/uL Basophils # (Auto) 0.1 0.0-0.1 10^3/uL Immature Granulocyte # (Auto) 0.1 0.0-0.1 10^3/uL Sodium Level 138 135-145 MMOL/L Potassium Level 4.2 3.6-5.0 MMOL/L Chloride Level 105 98-107 MMOL/L Carbon Dioxide Level 21 21-32 MMOL/L Anion Gap 12 5-14 MMOL/L Blood Urea Nitrogen 15 7-18 MG/DL Creatinine 0.78 0.60-1.30 MG/DL Estimat Glomerular Filtration Rate > 60 BUN/Creatinine Ratio 19 Glucose Level 108 H 70-105 MG/DL Calcium Level 9.4 8.5-10.1 MG/DL Corrected Calcium 9.2 8.5-10.1 MG/DL Magnesium Level 2.0 1.6-2.4 MG/DL Total Bilirubin 0.3 0.1-1.0 MG/DL Aspartate Amino Transf (AST/SGOT) 72 H 5-34 U/L Alanine Aminotransferase (ALT/SGPT) 75 H 0-55 U/L Alkaline Phosphatase 70 40-136 U/L Ammonia 26 11-32 UMOL/L C-Reactive Protein High Sensitivity 0.54 H 0.00-0.50 MG/DL Total Protein 7.3 6.4-8.2 GM/DL Albumin 4.2 3.2-4.5 GM/DL Amylase Level 50 25-125 U/L Lipase 52 8-78 U/L Urine Color YELLOW Urine Clarity CLEAR Urine pH 6.0 5-9 Urine Specific [place] 1.020 1.016-1.022 Urine Protein NEGATIVE NEGATIVE Urine Glucose (UA) NEGATIVE NEGATIVE Urine Ketones NEGATIVE NEGATIVE Urine Nitrite NEGATIVE NEGATIVE Urine Bilirubin NEGATIVE NEGATIVE Urine Urobilinogen 0.2 < = 1.0 MG/DL Urine Leukocyte Esterase NEGATIVE NEGATIVE Urine RBC (Auto) NEGATIVE NEGATIVE Urine RBC NONE /HPF Urine WBC NONE /HPF Urine Crystals PRESENT H /LPF Urine Amorphous Sediment RARE [place] URATES H /LPF Urine Bacteria NEGATIVE /HPF Urine Casts NONE /LPF Urine Mucus NEGATIVE /LPF Urine Culture Indicated NO My Orders Orders - MAKAYLA HAWKINS Cbc With Automated Diff (09/05/20 18:11) Comprehensive Metabolic Panel (09/05/20 18:11) Hs C Reactive Protein (09/05/20 18:11) Amylase (09/05/20 18:11) Lipase (09/05/20 18:11) Ua Culture If Indicated (09/05/20 18:11) Magnesium (09/05/20 18:37) Ondansetron Injection (Zofran Injectio (09/05/20 18:45) Promethazine Injection (Phenergan Injec (09/05/20 18:45) Lactated Ringers (Lr 1000 Ml Iv Solution (09/05/20 18:37) Ammonia (09/05/20 18:44) Metoclopramide Injection (Reglan Injecti (09/05/20 20:15) Diphenhydramine Injection (Benadryl Inje (09/05/20 20:15) Medications Given in ED Current Medications Medications Dose Ordered Sig/Neal Route Start Time Stop Time Status Last Admin Dose Admin Diphenhydramine HCl 25 mg ONCE ONCE IVP 09/05/20 20:15 09/05/20 20:16 DC 09/05/20 20:58 25 MG Metoclopramide HCl 10 mg ONCE ONCE IVP 09/05/20 20:15 09/05/20 20:16 DC 09/05/20 20:58 10 MG Ondansetron HCl 8 mg ONCE ONCE IVP 09/05/20 18:45 09/05/20 18:46 DC 09/05/20 19:04 8 MG Promethazine HCl 25 mg ONCE ONCE IVP 09/05/20 18:45 09/05/20 18:46 DC 09/05/20 19:04 25 MG Vital Signs/I&O 09/05/20 18:08 Temp 36.0 Pulse 95 Resp 18 B/P (MAP) 141/89 (106) Pulse Ox 97 Blood Pressure Mean: 106 Progress Progress Note #1: Time: 18:42 Progress Note Because she was started on Suboxone and were going to check an ammonia level as well as some labs give her 8 mg of Zofran and 25 mg of Phenergan as well as a liter of fluids. Her oral mucosa appears only mildly dry. She would probably benefit from having a PICC line or even a port since she has such a difficult stick and nursing is having a hard time getting an IV started or blood out of her. We will check a lipase however its dubious that this will be elevated. We have advised her that if we can get her symptoms under control tonight then she can follow-up with Dr. Marroquin to discuss a more permanent line placement as well as whether he thinks there is any relationship to her the meshes after he reviews the work-up from [facility]. We also advised her to keep her follow-up appointment with the liver specialist to discover what the next step is. Progress Note #2: Time: 21:21 Progress Note Patient got modest relief from fluids, Phenergan and ondansetron. She was still complaining of nausea although she has not retched her head and vomiting since arriving so a dose of Reglan and Benadryl was given. After this she says she feels much better and is no longer nauseated. We have instructed her to follow- up outpatient. Return precautions discussed. Departure Impression Primary Impression: Nausea and vomiting Qualified Codes: R11.2 - Nausea with vomiting, unspecified Additional Impression: Mild dehydration Disposition: 01 HOME, SELF-CARE Condition: Improved Departure-Patient Inst. Decision time for Depature: 21:13 Referrals: LINDSEY MARROQUIN BETHANY N MD (PCP/Family) Primary Care Physician Patient Instructions: Nausea and Vomiting, Adult ED Add. Discharge Instructions: Continue to work on follow-up with the liver specialist at [facility]. Speak with Dr. Marroquin and/or your primary care doctor about the possibility of putting in a Port-A-Cath or other semipermanent device since you are frequently nauseated and have great difficulty establishing IV lines. Continue to preemptively treat your nausea as directed. All discharge instructions reviewed with patient and/or family. Voiced understanding. Copy Copies To 1: LINDSEY MARROQUIN TITUS J Sep 05, 2020 18:44
[2020-09-05] MEDS ORDERED: ONDANSETRON 4 MG/2 ML (SDV) Z0FRAN IVP ONE (18:45)
[2020-09-05] MEDS ORDERED: PROMETHAZINE INJ 25 MG/ML (PHENERGAN) AMP IVP ONE (18:45)
[2020-09-05 19:04] LABS: BASOPHILS # (AUTO) 0.1 10^3/uL (0.0-0.1); BASOPHILS % (AUTO) 1 % (0-10); EOSINOPHILS # (AUTO) 0.2 10^3/uL (0.0-0.3); EOSINOPHILS % (AUTO) 3 % (0-10); HEMATOCRIT 39 % (35-52); HEMOGLOBIN 12.6 g/dL (11.5-16.0); LYMPHOCYTES # (AUTO) 2.6 10^3/uL (1.0-4.0); LYMPHOCYTES % (AUTO) 31 % (12-44); MEAN CORPUSCULAR HEMOGLOBIN 28 pg (25-34); MEAN CORPUSCULAR HGB CONC 33 g/dL (32-36); MEAN CORPUSCULAR VOLUME 85 fL (80-99); MEAN PLATELET VOLUME 10.5 fL (9.0-12.2); MONOCYTES # (AUTO) 0.5 10^3/uL (0.0-1.0); MONOCYTES % (AUTO) 6 % (0-12); NEUTROPHILS # (AUTO) 4.9 10^3/uL (1.8-7.8); NEUTROPHILS % (AUTO) 59 % (42-75); PLATELET COUNT 165 10^3/uL (130-400); WHITE BLOOD COUNT 8.3 10^3/uL (4.3-11.0)
[2020-09-05 19:18] LABS: ALBUMIN 4.2 GM/DL (3.2-4.5); CHLORIDE 105 MMOL/L (98-107); POTASSIUM 4.2 MMOL/L (3.6-5.0); SODIUM 138 MMOL/L (135-145)
[2020-09-05 19:19] LABS: AMYLASE 50 U/L (25-125); CALCIUM 9.4 MG/DL (8.5-10.1)
[2020-09-05 19:20] LABS: AMMONIA 26 UMOL/L (11-32)
[2020-09-05 19:21] LABS: GLUCOSE 108 MG/DL (70-105); TOTAL PROTEIN 7.3 GM/DL (6.4-8.2)
[2020-09-05 19:22] LABS: BILIRUBIN,TOTAL 0.3 MG/DL (0.1-1.0); CARBON DIOXIDE 21 MMOL/L (21-32)
[2020-09-05 19:24] LABS: ALKALINE PHOSPHATASE 70 U/L (40-136); CREATININE SERUM 0.78 MG/DL (0.60-1.30); GFR ESTIMATED > 60
[2020-09-05 19:25] LABS: BUN/CREATININE RATIO 19
[2020-09-05 19:27] LABS: ALANINE AMINOTRANSFERASE 75 U/L (0-55)
[2020-09-05 19:28] LABS: LIPASE 52 U/L (8-78)
[2020-09-05 19:29] LABS: BILIRUBIN,URINE NEGATIVE (NEGATIVE); CLARITY,URINE CLEAR; COLOR,URINE YELLOW; GLUCOSE, URINE (UA) NEGATIVE (NEGATIVE); KETONES,URINE NEGATIVE (NEGATIVE); LEUKOCYTE ESTERASE ,URINE NEGATIVE (NEGATIVE); NITRITE,URINE NEGATIVE (NEGATIVE); PROTEIN,URINE NEGATIVE (NEGATIVE)
[2020-09-05] MEDS ORDERED: METOCLOPRAMIDE INJ 10 MG/2 ML (REGLAN) IVP ONE (20:15)
[2020-09-05] MEDS ORDERED: diphenhydrAMINE 50 MG/ML INJ (BENADRYL) IVP ONE (20:15)
[2020-09-05 20:23] LABS: AMORPHOUS SEDIMENT,UR RARE AMOR URATES /LPF; BACTERIA,URINE NEGATIVE /HPF
[2020-09-05 21:34] VITALS: BP 130/81
== END 2020-09-05 21:34 | disposition home or self-care (01) ==
LOC: EDUNIT# 17:44 → ER 17:46
DX: R11.2 Nausea with vomiting, unspecified (principal); E86.0 Dehydration; I10 Essential (primary) hypertension; F41.9 Anxiety disorder, unspecified; F32.9 Major depressive disorder, single episode, unspecified; J45.909 Unspecified asthma, uncomplicated; Z87.891 Personal history of nicotine dependence; Z87.19 Personal history of other diseases of the digestive system; Z79.52 Long term (current) use of systemic steroids; Z79.51 Long term (current) use of inhaled steroids; Z79.899 Other long term (current) drug therapy; Z88.0 Allergy status to penicillin; Z88.1 Allergy status to other antibiotic agents; Z88.5 Allergy status to narcotic agent; Z88.8 Allergy status to other drugs, medicaments and biological substances
CPT/HCPCS: 36415; 80053; 81000; 82140; 82150; 83690; 83735; 85025; 86141

== ENCOUNTER → 2020-09-07 | Outpatient (CLI) | payer MEDICARE, MEDICAID ==
--- NOTE | 2020-09-07 15:36 | Diagnostic Imaging Report ---
PROCEDURE: CT sinuses without contrast TECHNIQUE: Multiple contiguous axial images were obtained through the sinuses without the use of intravenous contrast. Coronal and sagittal reformations were then performed. Auto Exposure Controls were utilized during the CT exam to meet ALARA standards for radiation dose reduction. INDICATION: Right forehead headache. There are no prior CT sinus exams available for comparison. The CT head exam performed on 07/28/2020 did note fluid layering within the sphenoid sinus on the right as well as mild bilateral ethmoid sinusitis. On this exam however the fluid within the sphenoid sinus has resolved. There is minimal if any residual mucosal thickening of the ethmoid sinuses as well. The frontal and maxillary sinuses are generally clear and well aerated. The osteomeatal complexes are patent. Nasal septum is bowed to the right. The bone windows show no evidence for a fracture or for a destructive lesion. The orbits are symmetrical and within normal limits. IMPRESSION: 1. The appearance of the sinuses has improved since the prior exam as the fluid within the sphenoid sinus on the right seen previously has resolved. There is also now only minimal mucosal thickening of the ethmoid sinuses. 2. The sinuses are otherwise generally clear and well aerated. Dictated by: Dictated on workstation # [id number]
--- NOTE | 2020-09-07 16:09 | Diagnostic Imaging Report ---
PROCEDURE: US thyroid. TECHNIQUE: Multiple real-time grayscale images were obtained of the thyroid in various projections. INDICATION: Thyroglossal duct cyst. FINDINGS: The previous thyroid ultrasound exam performed on 04/30/2019 failed to show any sign of a thyroid mass. There was a tiny 4 mm cyst in the anterior neck midline just superior to the thyroid. The possibility that this is related to a small thyroglossal duct cyst was raised. On this exam that cyst cannot be identified. The thyroid gland, itself, is generally unremarkable. The right lobe measures 5.1 x 2.0 x 1.0 cm while the left lobe is estimated to be 4.3 x 1.2 x 1.5 cm (normal gland size 4-5 x 2 x 2 cm or less). There is still no discrete solid or cystic mass evident. IMPRESSION: 1. The thyroid gland is prominent but similar in appearance to the prior exam. 2. The small cyst in the anterior neck near midline superior to the thyroid, seen previously, cannot be identified on this exam. Dictated by: Dictated on workstation # [id number]
== END ==
LOC: RAD 14:36
PROVIDERS: ATTEND Otolaryngology Otolaryngology/Facial Plastic Surgery
DX: E04.1 Nontoxic single thyroid nodule (principal); J34.89 Other specified disorders of nose and nasal sinuses
CPT/HCPCS: 70486; 76536

== ENCOUNTER 2020-09-22 13:11 | Emergency (ER) | payer MEDICARE, MEDICAID ==
[~2020-09-22] VITALS: Ht 157.5 cm; Wt 127.0 kg
[2020-09-22] MEDS ORDERED: ONDANSETRON 4 MG/2 ML (SDV) Z0FRAN IVP ONE (14:30)
[2020-09-22] MEDS ORDERED: NS IV 1000 ML 1,000 ML IV SCH (14:30)
[2020-09-22 14:53] LABS: BASOPHILS # (AUTO) 0.1 10^3/uL (0.0-0.1); BASOPHILS % (AUTO) 1 % (0-10); EOSINOPHILS # (AUTO) 0.2 10^3/uL (0.0-0.3); EOSINOPHILS % (AUTO) 3 % (0-10); HEMATOCRIT 41 % (35-52); HEMOGLOBIN 12.9 g/dL (11.5-16.0); LYMPHOCYTES % (AUTO) 26 % (12-44); MEAN CORPUSCULAR HEMOGLOBIN 28 pg (25-34); MEAN CORPUSCULAR HGB CONC 32 g/dL (32-36); MEAN CORPUSCULAR VOLUME 87 fL (80-99); MEAN PLATELET VOLUME 9.6 fL (9.0-12.2); MONOCYTES # (AUTO) 0.3 10^3/uL (0.0-1.0); MONOCYTES % (AUTO) 4 % (0-12); NEUTROPHILS # (AUTO) 5.2 10^3/uL (1.8-7.8); NEUTROPHILS % (AUTO) 66 % (42-75); PLATELET COUNT 248 10^3/uL (130-400); WHITE BLOOD COUNT 7.8 10^3/uL (4.3-11.0)
[2020-09-22 15:03] LABS: ALBUMIN 4.4 GM/DL (3.2-4.5); CHLORIDE 104 MMOL/L (98-107); SODIUM 140 MMOL/L (135-145)
[2020-09-22 15:05] LABS: CALCIUM 9.8 MG/DL (8.5-10.1)
[2020-09-22 15:06] LABS: GLUCOSE 123 MG/DL (70-105); TOTAL PROTEIN 7.8 GM/DL (6.4-8.2)
[2020-09-22 15:07] LABS: CARBON DIOXIDE 20 MMOL/L (21-32)
[2020-09-22 15:08] LABS: BILIRUBIN,TOTAL 0.5 MG/DL (0.1-1.0)
[2020-09-22 15:09] LABS: ALKALINE PHOSPHATASE 83 U/L (40-136); CREATININE SERUM 0.85 MG/DL (0.60-1.30); GFR ESTIMATED > 60
[2020-09-22 15:10] LABS: BUN/CREATININE RATIO 15
[2020-09-22 15:12] LABS: ALANINE AMINOTRANSFERASE 82 U/L (0-55)
[2020-09-22 15:13] LABS: LIPASE 90 U/L (8-78)
--- NOTE | 2020-09-22 15:26 | ED Abdominal Pain ---
General Chief Complaint: Abdominal/GI Problems Stated Complaint: N/V Nursing Triage Note: PT C/O NAUSEA AND ABD PAIN Sepsis Screen: No Definite Risk Source of Information: Patient Exam Limitations: No Limitations History of Present Illness Date Seen by Provider: Sep 22, 2020 Time Seen by Provider: 14:30 Initial Comments To ER with reports of nausea and epigastric abdominal pain. No diarrhea. Timing/Duration: 1-2 Days Severity/Quality: Moderate Location: Epigastric Radiation: No Radiation Activities at Onset: None Associated Symptoms: Denies Symptoms Allergies and Home Medications Allergies Coded Allergies: fentanyl (Verified Allergy, Unknown, 10/16/18) meperidine (Verified Allergy, Unknown, 10/16/18) penicillin G (Verified Allergy, Unknown, 10/16/18) trimethobenzamide (Unverified Allergy, Unknown, 09/05/20) vancomycin (Verified Adverse Reaction, Intermediate, severe itching, 10/26/19) Home Medications Acetaminophen 500 Mg Tablet, 1,000 MG PO Q8H PRN for PAIN-MILD (1-4), (Reported) Cefdinir 300 Mg Capsule, 300 MG PO BID Prescribed by: YAN CHAPARRO on 07/15/201906 Cyclobenzaprine HCl 10 Mg Tablet, 10 MG PO TID PRN for PAIN-MODERATE (5-7) Prescribed by: OSVALDO CALDWELL on 05/14/20 161 Diphenhydramine HCl 25 Mg Capsule, 25 MG PO HS PRN for SLEEP, (Reported) Estradiol 1 Mg Tablet, 1 MG PO HS, (Reported) Fluticasone Propionate 9.9 Ml [place].susp, 2 SPRAY NS DAILY 2 SPRAYS PER NOSTRIL DAILY X 2 DAYS THEN 1 SPRAY DAILY Prescribed by: YAN CHAPARRO on 07/15/201906 Hydrocodone/Acetaminophen 1 Each Tablet, 2 EACH PO Q6H PRN for PAIN-MILD (1-4), (Reported) Hydrocodone/Acetaminophen 1 Each Tablet, 1 EACH PO Q6H PRN for PAIN-BREAKTHROUGH Prescribed by: OSVALDO CALDWELL on 05/14/20 161 L. Acidophilus/Pectin, [place] 1 Each Capsule, 2 EACH PO QID Prescribed by: YAN CHAPARRO on 07/15/201918 Levofloxacin 500 Mg Tablet, 500 MG PO DAILY Prescribed by: GEORGES FINN on 07/28/20 1812 Loratadine/Pseudoephedrine 1 Each Tab.er.12h, 1 EACH PO BID Prescribed by: YAN CHAPARRO on 07/15/201906 Methocarbamol 750 Mg Tablet, 750-1,500 MG PO Q6H PRN for PAIN-MILD (1-4) Prescribed by: GEORGES FINN on 02/10/20 125 Methylprednisolone 4 Mg Tab.ds.pk, 4 MG PO UD PER DOSE PACK INSTRUCTIONS Prescribed by: EGORGES FINN on 02/10/20 125 Methylprednisolone 4 Mg Tab.ds.pk, 4 MG PO UD PER DOSE PACK INSTRUCTIONS Prescribed by: YAN CHAPARRO on 07/15/201906 Multivitamin 1 Each Tablet, 1 EACH PO DAILY, (Reported) Ondansetron 8 Mg Tab.rapdis, 8 MG PO Q8H PRN for NAUSEA/VOMITING, (Reported) Ondansetron HCl 8 Mg Tablet, 8-16 MG PO Q6H PRN for NAUSEA-1ST LINE Prescribed by: MAKAYLA HAWKINS on 01/21/20 162 Promethazine HCl 25 Mg Tablet, 25 MG PO Q6H PRN for NAUSEA/VOMITING Prescribed by: MAKAYLA HAWKINS on 01/21/20 1621 Promethazine HCl 25 Mg Tablet, 25 MG PO Q8H PRN for NAUSEA/VOMITING Prescribed by: OSVALDO CALDWELL on 05/14/20 1618 Ropinirole HCl 4 Mg Tablet, 4 MG PO HS, (Reported) Scopolamine 1 Each Patch.td72, 1 EACH TD Q72H, (Reported) Sertraline HCl 50 Mg Tablet, 50 MG PO HS, (Reported) Sulfamethoxazole/Trimethoprim 1 Each Tablet, 1 EACH PO BID Prescribed by: IZABELA MAC on 04/30/20 1027 Patient Home Medication List Home Medication List Reviewed: Yes Review of Systems Review of Systems Constitutional: see HPI EENTM: No Symptoms Reported Respiratory: No Symptoms Reported Cardiovascular: No Symptoms Reported Gastrointestinal: See HPI, Abdominal Pain, Nausea Genitourinary: No Symptoms Reported Musculoskeletal: no symptoms reported Skin: no symptoms reported Psychiatric/Neurological: No Symptoms Reported Endocrine: No Symptoms Reported Hematologic/Lymphatic: No Symptoms Reported Past Nlogirh-Zblkio-Omuxyt Hx Patient Social History Alcohol Use: Denies Use Smoking Status: Current Someday Smoker Type Used: Cigarettes 2nd Hand Smoke Exposure: No Recent Infectious Disease Expo: No Recent Hopitalizations: No Immunizations Up To Date Tetanus Booster (TDap): Less than 5yrs PED Vaccines UTD: No Date of Pneumonia Vaccine: May 17, 2012 Date of Influenza Vaccine: Jul 03, 2012 Seasonal Allergies Seasonal Allergies: No Past Medical History Surgeries: Yes (hernia repair, knee scopes) Adenoidectomy, Appendectomy, Gallbladder, 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, Nephrectomy, Orthopedic, Tonsillectomy Respiratory: Yes Asthma Currently Using CPAP: No Currently Using BIPAP: No Cardiac: Yes Hypertension Neurological: Yes Headaches /Migraines 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: Yes (HX ENDOMETRIOSIS ) 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 Sexually Transmitted Disease: No HIV/AIDS: No Genitourinary: No UTI-Chronic Gastrointestinal: Yes Abdominal Hernia, Gastroesophageal Reflux, Liver Disease/Jaundice, Obstructive Bowel, Pancreatitis, Polyps Musculoskeletal: Yes (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) Chronic Back Pain Endocrine: No HEENT: No Loss of Vision: Denies Hearing Impairment: Denies Cancer: Yes Kidney Did You Recieve Any Treatments: Yes What Type of Treatment Did You: Surgical Intervention Psychosocial: Yes Anxiety, Depression Integumentary: No Herpes Blood Disorders: No Adverse Reaction/Blood Tranf: No (N/A) Family Medical History Cardiovascular disease 19 FATHER Completed stroke 19 FATHER Diabetes mellitus 19 FATHER Hypercholesterolemia 19 FATHER 19 MOTHER Hypertension 19 FATHER 19 MOTHER Neoplasm 19 MOTHER Psychosocial problem 19 FATHER 19 MOTHER No Pertinent Family Hx, Cancer, Diabetes, Hypertension PSH: -RIGHT KNEE SCOPE X 5 -LEFT KNEE SCOPE X 2 -TONSILLECTOMY / ADENOIDECTOMY -APPENDECTOMY -CHOLECYSTECTOMY -NASAL FRACTURE REPAIR -COCCYX REMOVAL -LEFT NEPHRECTOMY FOR MALIGNANCY -LEFT MID ABDOMEN INCISIONAL HERNIA REPAIR -DRAINAGE OF ABDOMINAL WALL ABSCESS -MULTIPLE EGD'S AND COLONOSCOPIES--LAST ONE DONE HERE 10/26/19 -HYSTERECTOMY / BILATERAL SALPINGO-OOPHORECTOMY 2007 -06/23/20--RIGHT CHEST WALL/SHOULDER INJECTION FOR THORACIC OUTLET SYNDROME--DONE IN Physical Exam Vital Signs Vital Signs - First Documented 09/22/20 14:10 Temp 36.0 Pulse 92 Resp 20 B/P (MAP) 138/94 (109) Pulse Ox 97 Capillary Refill : Less Than 3 Seconds Height/Weight/BMI Height: 5'3.00" Weight: 246lbs. 0oz. 111.003431yz; 51.00 BMI Method:Stated General Appearance: WD/WN, no apparent distress Respiratory: lungs clear, normal breath sounds, no respiratory distress, no accessory muscle use Cardiovascular: regular rate, rhythm, no murmur Gastrointestinal: normal bowel sounds, soft Extremities: normal range of motion, non-tender Neurologic/Psychiatric: alert, normal mood/affect, oriented x 3 Skin: normal color, warm/dry Progress/Results/Core Measures Results/Orders Lab Results Laboratory Tests Test 09/22/20 14:45 Range/Units White Blood Count 7.8 4.3-11.0 10^3/uL Red Blood Count 4.66 3.80-5.11 10^6/uL Hemoglobin 12.9 11.5-16.0 g/dL Hematocrit 41 35-52 % Mean Corpuscular Volume 87 80-99 fL Mean Corpuscular Hemoglobin 28 25-34 pg Mean Corpuscular Hemoglobin Concent 32 32-36 g/dL Red Cell Distribution Width 13.7 10.0-14.5 % Platelet Count 248 130-400 10^3/uL Mean Platelet Volume 9.6 9.0-12.2 fL Immature Granulocyte % (Auto) 0 % Neutrophils (%) (Auto) 66 42-75 % Lymphocytes (%) (Auto) 26 12-44 % Monocytes (%) (Auto) 4 0-12 % Eosinophils (%) (Auto) 3 0-10 % Basophils (%) (Auto) 1 0-10 % Neutrophils # (Auto) 5.2 1.8-7.8 10^3/uL Lymphocytes # (Auto) 2.0 1.0-4.0 10^3/uL Monocytes # (Auto) 0.3 0.0-1.0 10^3/uL Eosinophils # (Auto) 0.2 0.0-0.3 10^3/uL Basophils # (Auto) 0.1 0.0-0.1 10^3/uL Immature Granulocyte # (Auto) 0.0 0.0-0.1 10^3/uL Sodium Level 140 135-145 MMOL/L Potassium Level 4.0 3.6-5.0 MMOL/L Chloride Level 104 98-107 MMOL/L Carbon Dioxide Level 20 L 21-32 MMOL/L Anion Gap 16 H 5-14 MMOL/L Blood Urea Nitrogen 13 7-18 MG/DL Creatinine 0.85 0.60-1.30 MG/DL Estimat Glomerular Filtration Rate > 60 BUN/Creatinine Ratio 15 Glucose Level 123 H 70-105 MG/DL Calcium Level 9.8 8.5-10.1 MG/DL Corrected Calcium 9.5 8.5-10.1 MG/DL Total Bilirubin 0.5 0.1-1.0 MG/DL Aspartate Amino Transf (AST/SGOT) 90 H 5-34 U/L Alanine Aminotransferase (ALT/SGPT) 82 H 0-55 U/L Alkaline Phosphatase 83 40-136 U/L Total Protein 7.8 6.4-8.2 GM/DL Albumin 4.4 3.2-4.5 GM/DL Lipase 90 H 8-78 U/L My Orders Orders - GEORGES FINN APRN Cbc With Automated Diff (09/22/20 14:20) Comprehensive Metabolic Panel (09/22/20 14:20) Lipase (09/22/20 14:20) Ua Culture If Indicated (09/22/20 14:20) Ed Iv/Invasive Line Start (09/22/20 14:20) Ondansetron Injection (Zofran Injectio (09/22/20 14:30) Ns Iv 1000 Ml (Sodium Chloride 0.9%) (09/22/20 14:30) Medications Given in ED Current Medications Medications Dose Ordered Sig/Neal Route Start Time Stop Time Status Last Admin Dose Admin Ondansetron HCl 8 mg ONCE ONCE IVP 09/22/20 14:30 09/22/20 14:31 DC 09/22/20 14:59 8 MG Vital Signs/I&O 09/22/20 14:10 Temp 36.0 Pulse 92 Resp 20 B/P (MAP) 138/94 (109) Pulse Ox 97 Blood Pressure Mean: 109 Departure Impression Primary Impression: Chronic abdominal pain Disposition: 01 HOME, SELF-CARE Condition: Stable Departure-Patient Inst. Decision time for Depature: 15:26 Referrals: CARMEN GIBBS MD (PCP/Family) Primary Care Physician Patient Instructions: No Instuctions Given GEORGES FINN APRN Sep 22, 2020 15:26
[2020-09-22 15:49] LABS: BILIRUBIN,URINE NEGATIVE (NEGATIVE); CLARITY,URINE CLEAR; COLOR,URINE YELLOW; GLUCOSE, URINE (UA) NEGATIVE (NEGATIVE); KETONES,URINE NEGATIVE (NEGATIVE); LEUKOCYTE ESTERASE ,URINE NEGATIVE (NEGATIVE); NITRITE,URINE NEGATIVE (NEGATIVE); PH,URINE 5.5 (5-9); PROTEIN,URINE NEGATIVE (NEGATIVE)
[2020-09-22 15:57] LABS: BACTERIA,URINE NEGATIVE /HPF; SQUAMOUS EPITHELIAL CELL,UR 0-2 /HPF; WBC,URINE RARE /HPF
[2020-09-22] MEDS ORDERED: PROMETHAZINE INJ 25 MG/ML (PHENERGAN) AMP IVP ONE (16:00)
[2020-09-22 16:50] VITALS: BP 108/75
== END 2020-09-22 16:50 | disposition home or self-care (01) ==
LOC: EDUNIT# 13:11 → ER 13:12
DX: G89.29 Other chronic pain (principal); R10.13 Epigastric pain; I10 Essential (primary) hypertension; G43.909 Migraine, unspecified, not intractable, without status migrainosus; K21.9 Gastro-esophageal reflux disease without esophagitis; K58.9 Irritable bowel syndrome, unspecified; F41.9 Anxiety disorder, unspecified; F32.9 Major depressive disorder, single episode, unspecified; F17.210 Nicotine dependence, cigarettes, uncomplicated; Z79.52 Long term (current) use of systemic steroids; Z79.51 Long term (current) use of inhaled steroids; Z88.0 Allergy status to penicillin; Z88.1 Allergy status to other antibiotic agents; Z88.8 Allergy status to other drugs, medicaments and biological substances; Z88.5 Allergy status to narcotic agent
CPT/HCPCS: 36415; 80053; 81000; 83690; 85025

== ENCOUNTER 2020-10-23 12:41 | Emergency (ER) | payer MEDICARE, MEDICAID ==
[~2020-10-23] VITALS: Ht 160 cm; Wt 124.7 kg
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
[2020-10-23] MEDS ORDERED: ORPHENADRINE 60 MG/2 ML (NORFLEX) AMP (ED ONLY) IM ONE (13:15)
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
[2020-10-23 13:55] VITALS: BP 152/94
== END 2020-10-23 13:57 | disposition home or self-care (01) ==
LOC: EDUNIT# 12:41 → ER 12:42
DX: S20.02XA Contusion of left breast, initial encounter (principal); J45.909 Unspecified asthma, uncomplicated; I10 Essential (primary) hypertension; F41.9 Anxiety disorder, unspecified; F32.9 Major depressive disorder, single episode, unspecified; G89.29 Other chronic pain; M54.9 Dorsalgia, unspecified; Z88.0 Allergy status to penicillin; Z88.1 Allergy status to other antibiotic agents; Z88.8 Allergy status to other drugs, medicaments and biological substances; Z88.5 Allergy status to narcotic agent; Z79.52 Long term (current) use of systemic steroids; Z79.899 Other long term (current) drug therapy; Z79.891 Long term (current) use of opiate analgesic; V00.841A Fall from standing electric scooter, initial encounter
CPT/HCPCS: 71100; 73030

== ENCOUNTER 2020-10-24 14:05 | Emergency (ER) | payer MEDICARE, MEDICAID ==
[~2020-10-24] VITALS: Ht 160 cm; Wt 124.7 kg
[2020-10-24 14:12] VITALS: BP 122/70
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
--- NOTE | 2020-10-24 15:11 | Diagnostic Imaging Report ---
PROCEDURE: CT head and maxillofacial without contrast. TECHNIQUE: Multiple contiguous axial images were obtained through the head and facial bones without the use of intravenous contrast. Auto Exposure Controls were utilized during the CT exam to meet ALARA standards for radiation dose reduction. INDICATION: Trauma with left-sided head and upper facial pain. COMPARISON: Correlation is made with prior CT head from 07/28/2020. FINDINGS: CT HEAD: Ventricles and sulci are within normal limits. No sulcal effacement or midline shift is identified. No acute intra-axial or extra-axial hemorrhage is detected. Cisterns are patent. Visualized paranasal sinuses are clear. IMPRESSION: No acute intracranial process is detected. CT MAXILLOFACIAL: The mandible appears intact. Zygomatic arches are intact. Maxillary sinus jones as well as orbital jones appear to be intact. Nasal bones are intact. Nasal septum is intact. No fractures are seen. IMPRESSION: No facial bone fracture is detected. Dictated by: Dictated on workstation # [id number]
== END 2020-10-24 15:25 | disposition home or self-care (01) ==
LOC: EDUNIT# 14:05 → ER 14:08
DX: S09.90XA Unspecified injury of head, initial encounter (principal); J45.909 Unspecified asthma, uncomplicated; I10 Essential (primary) hypertension; F41.9 Anxiety disorder, unspecified; F32.9 Major depressive disorder, single episode, unspecified; G89.29 Other chronic pain; M54.9 Dorsalgia, unspecified; Z88.0 Allergy status to penicillin; Z88.1 Allergy status to other antibiotic agents; Z88.5 Allergy status to narcotic agent; Z88.8 Allergy status to other drugs, medicaments and biological substances; Z79.52 Long term (current) use of systemic steroids; Z79.899 Other long term (current) drug therapy; Z79.891 Long term (current) use of opiate analgesic; V00.841A Fall from standing electric scooter, initial encounter
CPT/HCPCS: 70450; 70486

== ENCOUNTER 2020-10-30 10:23 | Emergency (ER) | payer MEDICARE, MEDICAID ==
[~2020-10-30] VITALS: Ht 160 cm; Wt 124.0 kg
[2020-10-30 11:07] LABS: BASOPHILS % (AUTO) 0 % (0-10); EOSINOPHILS # (AUTO) 0.3 10^3/uL (0.0-0.3); EOSINOPHILS % (AUTO) 3 % (0-10); HEMATOCRIT 39 % (35-52); HEMOGLOBIN 12.5 g/dL (11.5-16.0); LYMPHOCYTES # (AUTO) 2.2 10^3/uL (1.0-4.0); LYMPHOCYTES % (AUTO) 29 % (12-44); MEAN CORPUSCULAR HEMOGLOBIN 27 pg (25-34); MEAN CORPUSCULAR HGB CONC 32 g/dL (32-36); MEAN CORPUSCULAR VOLUME 85 fL (80-99); MEAN PLATELET VOLUME 9.5 fL (9.0-12.2); MONOCYTES # (AUTO) 0.3 10^3/uL (0.0-1.0); MONOCYTES % (AUTO) 5 % (0-12); NEUTROPHILS # (AUTO) 4.5 10^3/uL (1.8-7.8); NEUTROPHILS % (AUTO) 62 % (42-75); PLATELET COUNT 250 10^3/uL (130-400); WHITE BLOOD COUNT 7.3 10^3/uL (4.3-11.0)
[2020-10-30 11:15] LABS: ALBUMIN 4.1 GM/DL (3.2-4.5); CHLORIDE 103 MMOL/L (98-107); SODIUM 141 MMOL/L (135-145)
[2020-10-30 11:15] LABS: BILIRUBIN,URINE NEGATIVE (NEGATIVE); CLARITY,URINE CLEAR; COLOR,URINE YELLOW; GLUCOSE, URINE (UA) NEGATIVE (NEGATIVE); KETONES,URINE NEGATIVE (NEGATIVE); LEUKOCYTE ESTERASE ,URINE TRACE (NEGATIVE); NITRITE,URINE NEGATIVE (NEGATIVE); PROTEIN,URINE NEGATIVE (NEGATIVE)
[2020-10-30 11:16] LABS: CALCIUM 9.7 MG/DL (8.5-10.1)
--- NOTE | 2020-10-30 11:16 | ED GI ---
General Chief Complaint: Abdominal/GI Problems Stated Complaint: NAUSEA/VOMITING/STOMACH PAIN Nursing Triage Note: ARRIVED VIA AMB TO ROOM 07. STATES SHE THREW UP AT LATTER-DAY AND IT TASTED LIKE ROTTEN EGGS ALSO COMPLAINS OF ABD PAIN. Sepsis Screen: No Definite Risk Source of Information: Patient Exam Limitations: No Limitations (MARY GILL STUDENT) History of Present Illness Date Seen by Provider: October 30, 2020 Time Seen by Provider: 10:50 Initial Comments Pt presents to ED via private conveyance with complaints of nausea, vomiting, and epigastric abd pain. She states that last night she was woken from sleep due to severe nausea/vomiting. She has taken Zofran last night and another dose this morning when she had another episode of nausea/vomiting while at [employer]. She describes her vomit as being watery and red-tinged. She states that her epigastric abd pain started shortly before arriving at the ED and rates it 10/10, denies radiation. She has a complex medical/surgical history with multiple abd surgeries for hernias, nephrectomy, partial colectomy, chronic pancreatitis. She also reports having black/tarry loose stools over the past month after being seen at for her pancreatitis and being started on an anti- diabetic medication. Currently denies chest pain, SOB, N/V, other associated symptoms. Timing/Duration: 12-24 Hours Severity/Quality: Severe, Aching, Dull Location: Epigastric Radiation: No Radiation Activities at Onset: Rest Associated Symptoms: No Chest Pain, No Fever/Chills, No Shortness of Air (MARY GILL STUDENT) Allergies and Home Medications Allergies Coded Allergies: fentanyl (Verified Allergy, Unknown, 10/16/18) meperidine (Verified Allergy, Unknown, 10/16/18) penicillin G (Verified Allergy, Unknown, 10/16/18) trimethobenzamide (Unverified Allergy, Unknown, 09/05/20) vancomycin (Verified Adverse Reaction, Intermediate, severe itching, 10/26/19) Home Medications Acetaminophen 500 Mg Tablet, 1,000 MG PO Q8H PRN for PAIN-MILD (1-4), (Reported) Cefdinir 300 Mg Capsule, 300 MG PO BID Prescribed by: YAN CHAPARRO on 07/15/20 190 Cyclobenzaprine HCl 10 Mg Tablet, 10 MG PO TID PRN for PAIN-MODERATE (5-7) Prescribed by: OSVALDO CALDWELL on 05/14/20 161 Diphenhydramine HCl 25 Mg Capsule, 25 MG PO HS PRN for SLEEP, (Reported) Estradiol 1 Mg Tablet, 1 MG PO HS, (Reported) Fluticasone Propionate 9.9 Ml [place].susp, 2 SPRAY NS DAILY 2 SPRAYS PER NOSTRIL DAILY X 2 DAYS THEN 1 SPRAY DAILY Prescribed by: YAN CHAPARRO on 07/15/201906 Hydrocodone/Acetaminophen 1 Each Tablet, 2 EACH PO Q6H PRN for PAIN-MILD (1-4), (Reported) Hydrocodone/Acetaminophen 1 Each Tablet, 1 EACH PO Q6H PRN for PAIN-BREAKTHROUGH Prescribed by: OSVALDO CALDWELL on 05/14/201611 L. Acidophilus/Pectin, [place] 1 Each Capsule, 2 EACH PO QID Prescribed by: YAN CHAPARRO on 07/15/201918 Levofloxacin 500 Mg Tablet, 500 MG PO DAILY Prescribed by: GEORGES FINN on 07/28/201811 Loratadine/Pseudoephedrine 1 Each Tab.er.12h, 1 EACH PO BID Prescribed by: YAN CHAPARRO on 07/15/201906 Methocarbamol 750 Mg Tablet, 750-1,500 MG PO Q6H PRN for PAIN-MILD (1-4) Prescribed by: GEORGES FINN on 02/10/20 125 Methylprednisolone 4 Mg Tab.ds.pk, 4 MG PO UD PER DOSE PACK INSTRUCTIONS Prescribed by: GEORGES FINN on 02/10/20 125 Methylprednisolone 4 Mg Tab.ds.pk, 4 MG PO UD PER DOSE PACK INSTRUCTIONS Prescribed by: YAN CHAPARRO on 07/15/201906 Multivitamin 1 Each Tablet, 1 EACH PO DAILY, (Reported) Ondansetron 8 Mg Tab.rapdis, 8 MG PO Q8H PRN for NAUSEA/VOMITING, (Reported) Ondansetron HCl 8 Mg Tablet, 8-16 MG PO Q6H PRN for NAUSEA-1ST LINE Prescribed by: MAKAYLA HAWKINS on 01/21/201620 Promethazine HCl 25 Mg Tablet, 25 MG PO Q6H PRN for NAUSEA/VOMITING Prescribed by: MAKAYLA HAWKINS on 01/21/201620 Promethazine HCl 25 Mg Tablet, 25 MG PO Q8H PRN for NAUSEA/VOMITING Prescribed by: OSVALDO CALDWELL on 05/14/20 1618 Promethazine HCl 25 Mg Tablet, 25 MG PO Q6H PRN for NAUSEA/VOMITING Prescribed by: MAKAYLA HAWKINS on 10/30/20 1333 Ropinirole HCl 4 Mg Tablet, 4 MG PO HS, (Reported) Scopolamine 1 Each Patch.td72, 1 EACH TD Q72H, (Reported) Sertraline HCl 50 Mg Tablet, 50 MG PO HS, (Reported) Sulfamethoxazole/Trimethoprim 1 Each Tablet, 1 EACH PO BID Prescribed by: IZABELA MAC on 04/30/20 1027 Patient Home Medication List Home Medication List Reviewed: Yes (MARY GILL) Review of Systems Review of Systems Constitutional: No chills, No fever EENTM: No Double Vision, No Eye Pain, No Ear Pain Respiratory: Denies Cough, Denies Shortness of Air Cardiovascular: Denies Chest Pain, Denies Edema, Denies Lightheadedness Gastrointestinal: Denies Abdomen Distended; Abdominal Pain (epigastric 10/10); Denies Constipated; Diarrhea (describes stool as black/tarry for the past month), Nausea, Vomiting Genitourinary: Denies Drainage, Denies Frequency, Denies Hematuria Musculoskeletal: No back pain, No joint pain, No muscle pain Skin: No change in color, No lesions, No rash Psychiatric/Neurological: Denies Headache, Denies Numbness, Denies Paresthesia, Denies Tingling Endocrine: Denies Excessive Sweating, Denies Flushing (MARY GILL) All Other Systems Reviewed Negative Unless Noted: Yes (MARY GILL) Past Ovrbzxj-Bkhdwi-Sigkkn Hx Past Med/Social Hx: Reviewed Nursing Past Med/Soc Hx (MARY GILL) Patient Social History Alcohol Use: Denies Use Smoking Status: Never a Smoker Type Used: Cigarettes 2nd Hand Smoke Exposure: No Recent Infectious Disease Expo: No Recent Hopitalizations: No (MARY GILL) Immunizations Up To Date Tetanus Booster (TDap): Less than 5yrs PED Vaccines UTD: No Date of Pneumonia Vaccine: May 17, 2012 Date of Influenza Vaccine: Jul 03, 2012 (MARY GILL) Seasonal Allergies Seasonal Allergies: No (JAIRO,MARY MED STUDENT) Past Medical History Surgeries: Yes (hernia repair, knee scopes) Adenoidectomy, Appendectomy, Gallbladder, 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, Nephrectomy, Orthopedic, Tonsillectomy Respiratory: Yes Asthma Currently Using CPAP: No Currently Using BIPAP: No Cardiac: Yes Hypertension Neurological: Yes Headaches /Migraines 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: Yes (HX ENDOMETRIOSIS ) 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: 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 Sexually Transmitted Disease: No HIV/AIDS: No Genitourinary: No UTI-Chronic Gastrointestinal: Yes Abdominal Hernia, Gastroesophageal Reflux, Liver Disease/Jaundice, Obstructive Bowel, Pancreatitis, Polyps Musculoskeletal: Yes (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) Chronic Back Pain Endocrine: No HEENT: No Loss of Vision: Denies Hearing Impairment: Denies Cancer: Yes Kidney Did You Recieve Any Treatments: Yes What Type of Treatment Did You: Surgical Intervention Psychosocial: Yes Anxiety, Depression Integumentary: No Herpes Blood Disorders: No Adverse Reaction/Blood Tranf: No (N/A) (MARY GILL STUDENT) Family Medical History Cardiovascular disease 19 FATHER Completed stroke 19 FATHER Diabetes mellitus 19 FATHER Hypercholesterolemia 19 FATHER 19 MOTHER Hypertension 19 FATHER 19 MOTHER Neoplasm 19 MOTHER Psychosocial problem 19 FATHER 19 MOTHER No Pertinent Family Hx, Cancer, Diabetes, Hypertension PSH: -RIGHT KNEE SCOPE X 5 -LEFT KNEE SCOPE X 2 -TONSILLECTOMY / ADENOIDECTOMY -APPENDECTOMY -CHOLECYSTECTOMY -NASAL FRACTURE REPAIR -COCCYX REMOVAL -LEFT NEPHRECTOMY FOR MALIGNANCY -LEFT MID ABDOMEN INCISIONAL HERNIA REPAIR -DRAINAGE OF ABDOMINAL WALL ABSCESS -MULTIPLE EGD'S AND COLONOSCOPIES--LAST ONE DONE HERE 10/26/19 -HYSTERECTOMY / BILATERAL SALPINGO-OOPHORECTOMY 2007 -06/23/20--RIGHT CHEST WALL/SHOULDER INJECTION FOR THORACIC OUTLET SYNDROME--DONE IN (MARY GILL STUDENT) Physical Exam Vital Signs Vital Signs - First Documented 10/30/20 10:40 Temp 36.1 Pulse 102 Resp 16 B/P (MAP) 148/104 (119) Pulse Ox 93 O2 Delivery Room Air (MAKAYLA HAWKINS) Vital Signs Capillary Refill : Less Than 3 Seconds (MARY GILL STUDENT) Height/Weight/BMI Height: 5'3.00" Weight: 246lbs. 0oz. 111.306188vr; 48.00 BMI Method:Stated General Appearance: WD/WN, moderate distress, obese HEENT: PERRL/EOMI, normal ENT inspection Neck: non-tender, full range of motion, supple, normal inspection Respiratory: chest non-tender, lungs clear, normal breath sounds, no respiratory distress, no accessory muscle use Cardiovascular: normal peripheral pulses, regular rate, rhythm, no edema, no murmur Peripheral Pulses: 2+ Radial Pulses (R), 2+ Radial Pulses (L) Gastrointestinal: soft, abnormal bowel sounds (hypoactive x4); No distended, No guarding; tenderness (epigastric) Rectal: deferred Extremities: normal range of motion, non-tender, normal inspection, no pedal edema, normal capillary refill Back: normal inspection, no CVA tenderness, no vertebral tenderness Neurologic/Psychiatric: no motor/sensory deficits, alert, normal mood/affect, oriented x 3 Skin: normal color, warm/dry Lymphatic: no adenopathy (MARY GILL MED STUDENT) Progress/Results/Core Measures Results/Orders Lab Results Laboratory Tests Test 10/30/20 10:57 10/30/20 11:04 Range/Units White Blood Count 7.3 4.3-11.0 10^3/uL Red Blood Count 4.56 3.80-5.11 10^6/uL Hemoglobin 12.5 11.5-16.0 g/dL Hematocrit 39 35-52 % Mean Corpuscular Volume 85 80-99 fL Mean Corpuscular Hemoglobin 27 25-34 pg Mean Corpuscular Hemoglobin Concent 32 32-36 g/dL Red Cell Distribution Width 13.2 10.0-14.5 % Platelet Count 250 130-400 10^3/uL Mean Platelet Volume 9.5 9.0-12.2 fL Immature Granulocyte % (Auto) 0 % Neutrophils (%) (Auto) 62 42-75 % Lymphocytes (%) (Auto) 29 12-44 % Monocytes (%) (Auto) 5 0-12 % Eosinophils (%) (Auto) 3 0-10 % Basophils (%) (Auto) 0 0-10 % Neutrophils # (Auto) 4.5 1.8-7.8 10^3/uL Lymphocytes # (Auto) 2.2 1.0-4.0 10^3/uL Monocytes # (Auto) 0.3 0.0-1.0 10^3/uL Eosinophils # (Auto) 0.3 0.0-0.3 10^3/uL Basophils # (Auto) 0.0 0.0-0.1 10^3/uL Immature Granulocyte # (Auto) 0.0 0.0-0.1 10^3/uL Sodium Level 141 135-145 MMOL/L Potassium Level 4.0 3.6-5.0 MMOL/L Chloride Level 103 98-107 MMOL/L Carbon Dioxide Level 27 21-32 MMOL/L Anion Gap 11 5-14 MMOL/L Blood Urea Nitrogen 15 7-18 MG/DL Creatinine 0.85 0.60-1.30 MG/DL Estimat Glomerular Filtration Rate > 60 BUN/Creatinine Ratio 18 Glucose Level 192 H 70-105 MG/DL Calcium Level 9.7 8.5-10.1 MG/DL Corrected Calcium 9.6 8.5-10.1 MG/DL Total Bilirubin 0.3 0.1-1.0 MG/DL Aspartate Amino Transf (AST/SGOT) 78 H 5-34 U/L Alanine Aminotransferase (ALT/SGPT) 85 H 0-55 U/L Alkaline Phosphatase 66 40-136 U/L C-Reactive Protein High Sensitivity 0.88 H 0.00-0.50 MG/DL Total Protein 7.4 6.4-8.2 GM/DL Albumin 4.1 3.2-4.5 GM/DL Lipase 143 H 8-78 U/L Urine Color YELLOW Urine Clarity CLEAR Urine pH 6.0 5-9 Urine Specific [place] 1.025 H 1.016-1.022 Urine Protein NEGATIVE NEGATIVE Urine Glucose (UA) NEGATIVE NEGATIVE Urine Ketones NEGATIVE NEGATIVE Urine Nitrite NEGATIVE NEGATIVE Urine Bilirubin NEGATIVE NEGATIVE Urine Urobilinogen 0.2 < = 1.0 MG/DL Urine Leukocyte Esterase TRACE H NEGATIVE Urine RBC (Auto) NEGATIVE NEGATIVE Urine RBC NONE /HPF Urine WBC RARE /HPF Urine Squamous Epithelial Cells 0-2 /HPF Urine Crystals NONE /LPF Urine Bacteria TRACE /HPF Urine Casts NONE /LPF Urine Mucus NEGATIVE /LPF Urine Culture Indicated NO (MAKAYLA HAWKINS) My Orders Orders - MAKAYLA HAWKINS Cbc With Automated Diff (10/30/20 10:40) Comprehensive Metabolic Panel (10/30/20 10:40) Hs C Reactive Protein (10/30/20 10:40) Lipase (10/30/20 10:40) Ua Culture If Indicated (10/30/20 10:40) Promethazine Tablet (Phenergan Tablet) (10/30/20 12:00) Lidocaine 2% Viscous 15 Ml (Xylocaine Vi (10/30/20 12:00) Famotidine Tablet (Pepcid Tablet) (10/30/20 11:55) Antacid Suspension (Mylanta Suspension (10/30/20 12:00) Occult Blood,Gastric Fluid (10/30/20 11:55) Promethazine Injection (Phenergan Injec (10/30/20 12:30) Diphenhydramine Injection (Benadryl Inje (10/30/20 12:30) (MAKAYLA HAWKINS) Medications Given in ED Current Medications Medications Dose Ordered Sig/Neal Route Start Time Stop Time Status Last Admin Dose Admin Al Hydrox/Mg Hydrox/Simethicone 30 ml ONCE ONCE PO 10/30/20 12:00 10/30/20 12:01 DC 10/30/20 12:00 30 ML Diphenhydramine HCl 25 mg ONCE ONCE IM 10/30/20 12:30 10/30/20 12:31 DC 10/30/20 12:29 25 MG Lidocaine HCl 15 ml ONCE ONCE PO 10/30/20 12:00 10/30/20 12:01 DC 10/30/20 12:00 15 ML Promethazine HCl 25 mg ONCE ONCE IM 10/30/20 12:30 10/30/20 12:31 DC 10/30/20 12:31 25 MG Promethazine HCl 25 mg ONCE ONCE PO 10/30/20 12:00 10/30/20 12:01 DC 10/30/20 12:00 25 MG (MAKAYLA HAWKINS) Vital Signs/I&O 10/30/20 10/30/20 10:40 13:36 Temp 36.1 36.1 Pulse 102 89 Resp 16 16 B/P (MAP) 148/104 (119) 140/82 (119) Pulse Ox 93 96 O2 Delivery Room Air (MAKAYLA HAWKINS) Blood Pressure Mean: 119 Progress Progress Note : Time: 13:28 Progress Note I attest that I saw this patient alongside the medical student and agree with his documented history, physical exam and review of systems except as otherwise noted. Patient unfortunately vomited up her initial Phenergan however Phenergan IM did help her symptoms she is feeling better. Again I sent her home with a prescription for some Phenergan and have encouraged her to follow-up with Dr. Marroquin to discuss having a port placed because she has such terrible peripheral IV access. (MAKAYLA HAWKINS) Departure Impression Primary Impression: Chronic pancreatitis Qualified Codes: K86.1 - Other chronic pancreatitis Disposition: HOME, SELF-CARE Condition: Stable Departure-Patient Inst. Decision time for Depature: 13:30 (MAKAYLA HAWKINS) Referrals: CARMEN GIBBS MD (PCP/Family) Primary Care Physician Patient Instructions: Chronic Pancreatitis (DC) Add. Discharge Instructions: Phenergan 1 tablet every 6 hours as necessary for nausea and/or vomiting. Drink plenty of fluids. Stick to a liquid diet for the next [address] Marroquin's office and request follow-up appointment to discuss the possibility of port placement for poor peripheral IV access. All discharge instructions reviewed with patient and/or family. Voiced understanding. Scripts Promethazine HCl (Promethazine Tablet) 25 Mg Tablet 25 MG PO Q6H PRN for NAUSEA/VOMITING, #25 TAB 0 Refills Prov: MAKAYLA HAWKINS 10/30/20 Copy Copies To 1: LINDSEY MARROQUIN JOHNNY MED STUDENT October 30, 2020 11:16 MAKAYLA HAWKINS October 30, 2020 13:32
[2020-10-30 11:18] LABS: GLUCOSE 192 MG/DL (70-105); TOTAL PROTEIN 7.4 GM/DL (6.4-8.2)
[2020-10-30 11:19] LABS: CARBON DIOXIDE 27 MMOL/L (21-32)
[2020-10-30 11:20] LABS: BILIRUBIN,TOTAL 0.3 MG/DL (0.1-1.0)
[2020-10-30 11:21] LABS: ALKALINE PHOSPHATASE 66 U/L (40-136)
[2020-10-30 11:22] LABS: CREATININE SERUM 0.85 MG/DL (0.60-1.30); GFR ESTIMATED > 60
[2020-10-30 11:23] LABS: BACTERIA,URINE TRACE /HPF; SQUAMOUS EPITHELIAL CELL,UR 0-2 /HPF; WBC,URINE RARE /HPF
[2020-10-30 11:23] LABS: BUN/CREATININE RATIO 18
[2020-10-30 11:24] LABS: ALANINE AMINOTRANSFERASE 85 U/L (0-55)
[2020-10-30 11:25] LABS: LIPASE 143 U/L (8-78)
[2020-10-30] MEDS ORDERED: FAMOTIDINE 20 MG (PEPCID) TABLET PO STA (11:55)
[2020-10-30] MEDS ORDERED: LIDOCAINE 2% VISCOUS 15 ML UDC PO ONE (12:00)
[2020-10-30] MEDS ORDERED: ANTACID SUSP 30 ML UDC (MYLANTA) PO ONE (12:00)
[2020-10-30] MEDS ORDERED: PROMETHAZINE 25 MG (PHENERGAN) TAB PO ONE (12:00)
[2020-10-30] MEDS ORDERED: PROMETHAZINE INJ 25 MG/ML (PHENERGAN) AMP IM ONE (12:30)
[2020-10-30] MEDS ORDERED: diphenhydrAMINE 50 MG/ML INJ (BENADRYL) IM ONE (12:30)
[2020-10-30] MEDS ORDERED: PROM25TA14 PO (13:33)
[2020-10-30 13:36] VITALS: BP 140/82
== END 2020-10-30 13:36 | disposition home or self-care (01) ==
LOC: EDUNIT# 10:23 → ER 10:24
DX: K86.1 Other chronic pancreatitis (principal); I10 Essential (primary) hypertension; J45.909 Unspecified asthma, uncomplicated; G89.29 Other chronic pain; M54.9 Dorsalgia, unspecified; F41.9 Anxiety disorder, unspecified; F32.9 Major depressive disorder, single episode, unspecified; E66.9 Obesity, unspecified; Z87.19 Personal history of other diseases of the digestive system; Z68.42 Body mass index [BMI] 45.0-49.9, adult; Z79.51 Long term (current) use of inhaled steroids; Z79.891 Long term (current) use of opiate analgesic; Z79.52 Long term (current) use of systemic steroids; Z79.899 Other long term (current) drug therapy
CPT/HCPCS: 36415; 80053; 81000; 83690; 85025; 86141

== ENCOUNTER 2020-11-10 09:53 | Outpatient (RCR) | payer MEDICARE, MEDICAID ==
[~2020-11-10 09:53] MED LIST changes: -OMEP40CA27 PO; +OMEP40CA6 PO; -SULF1TAB35 PO
[2020-12-07] MEDS ORDERED: SERT-414 PO (09:12)
[2020-12-07] MEDS ORDERED: SITA1TBM4 PO (09:16)
[2020-12-07] MEDS ORDERED: ATOR20TA66 PO (09:16)
[2020-12-07] MEDS ORDERED: LIPA1CAP4 PO (09:16)
[2020-12-07] MEDS ORDERED: PROM25TA14 PO (09:16)
[2020-12-07] MEDS ORDERED: OMEP40CA6 PO (09:16)
== END 2020-12-30 10:04 | disposition home or self-care (01) ==
LOC: ONC 09:53
PROVIDERS: ATTEND Internal Medicine Hematology & Oncology
DX: C64.2 Malignant neoplasm of left kidney, except renal pelvis (principal); D50.9 Iron deficiency anemia, unspecified; E78.5 Hyperlipidemia, unspecified; I10 Essential (primary) hypertension; E66.01 Morbid (severe) obesity due to excess calories; R91.1 Solitary pulmonary nodule; Z90.5 Acquired absence of kidney
CPT/HCPCS: 99213; 99214

== ENCOUNTER 2020-11-18 13:14 | Emergency (ER) | payer MEDICARE, MEDICAID ==
[~2020-11-18] VITALS: Ht 157 cm; Wt 102.0 kg
[~2020-11-18 13:14] MED LIST changes: +OMEP40CA27 PO; -OMEP40CA6 PO; +SULF1TAB35 PO
--- NOTE | 2020-11-18 13:46 | ED General ---
General Chief Complaint: Abdominal/GI Problems Stated Complaint: VOMMITTING/ STOMACH PAIN/ DEHYDRATED Source of Information: Patient Exam Limitations: No Limitations History of Present Illness Date Seen by Provider: Nov 18, 2020 Time Seen by Provider: 13:35 Initial Comments Patient is a 35-year-old female who presents to the emergency department today with a chief complaint of nausea and vomiting and epigastric abdominal discomfort. Patient states that she has a history of chronic pancreatitis. She was recently hospitalized in [place] in September and October. She states that she woke up this morning and when she was going to go to the bathroom noticed that she started getting nauseous and vomiting. Patient states that she took Phenergan at 11 AM this morning. She typically alternates Phenergan and Zofran. Patient denies any recent fevers or chills. She is been having diarrhea but has had diarrhea since she started Metformin. She denies any black or bloody st ools currently but states that she has had a couple of black stools recently. No dysuria, urgency or frequency. Patient is status post nephrectomy for kidney cancer. She is followed at the cancer center and by Dr. Gibbs. She denies any abnormal vaginal discharge. No vomiting of coffee grounds or bloody emesis. Patient thinks that she might of "overdone it" since her father was recently released from the hospital after having a heart attack. All other review of systems reviewed and negative except as stated above. Timing/Duration: 4-6 Hours Severity: Moderate Associated Systoms: Nausea/Vomiting (Currently complaining of dry heaving) Allergies and Home Medications Allergies Coded Allergies: fentanyl (Verified Allergy, Unknown, 10/16/18) meperidine (Verified Allergy, Unknown, 10/16/18) penicillin G (Verified Allergy, Unknown, 10/16/18) trimethobenzamide (Unverified Allergy, Unknown, 09/05/20) vancomycin (Verified Adverse Reaction, Intermediate, severe itching, 10/26/19) Home Medications Acetaminophen 500 Mg Tablet, 1,000 MG PO Q8H PRN for PAIN-MILD (1-4), (Reported) Cefdinir 300 Mg Capsule, 300 MG PO BID Prescribed by: YAN CHAPARRO on 07/15/201906 Cyclobenzaprine HCl 10 Mg Tablet, 10 MG PO TID PRN for PAIN-MODERATE (5-7) Prescribed by: OSVALDO CALDWELL on 05/14/20 161 Diphenhydramine HCl 25 Mg Capsule, 25 MG PO HS PRN for SLEEP, (Reported) Estradiol 1 Mg Tablet, 1 MG PO HS, (Reported) Fluticasone Propionate 9.9 Ml [place].susp, 2 SPRAY NS DAILY 2 SPRAYS PER NOSTRIL DAILY X 2 DAYS THEN 1 SPRAY DAILY Prescribed by: YAN CHAPARRO on 07/15/201906 Hydrocodone/Acetaminophen 1 Each Tablet, 2 EACH PO Q6H PRN for PAIN-MILD (1-4), (Reported) Hydrocodone/Acetaminophen 1 Each Tablet, 1 EACH PO Q6H PRN for PAIN-BREAKTHROUGH Prescribed by: OSVALDO CALDWELL on 05/14/201611 L. Acidophilus/Pectin, [place] 1 Each Capsule, 2 EACH PO QID Prescribed by: YAN CHAPARRO on 07/15/201918 Levofloxacin 500 Mg Tablet, 500 MG PO DAILY Prescribed by: GEORGES FINN on 07/28/201811 Loratadine/Pseudoephedrine 1 Each Tab.er.12h, 1 EACH PO BID Prescribed by: YAN CHAPARRO on 07/15/201906 Methocarbamol 750 Mg Tablet, 750-1,500 MG PO Q6H PRN for PAIN-MILD (1-4) Prescribed by: GEORGES FINN on 02/10/20 125 Methylprednisolone 4 Mg Tab.ds.pk, 4 MG PO UD PER DOSE PACK INSTRUCTIONS Prescribed by: GEORGES FINN on 02/10/20 125 Methylprednisolone 4 Mg Tab.ds.pk, 4 MG PO UD PER DOSE PACK INSTRUCTIONS Prescribed by: YAN CHAPARRO on 07/15/201906 Multivitamin 1 Each Tablet, 1 EACH PO DAILY, (Reported) Ondansetron 8 Mg Tab.rapdis, 8 MG PO Q8H PRN for NAUSEA/VOMITING, (Reported) Ondansetron HCl 8 Mg Tablet, 8-16 MG PO Q6H PRN for NAUSEA-1ST LINE Prescribed by: MAKAYLA HAWKINS on 01/21/201620 Promethazine HCl 25 Mg Tablet, 25 MG PO Q6H PRN for NAUSEA/VOMITING Prescribed by: MAKAYLA HAWKINS on 01/21/20 162 Promethazine HCl 25 Mg Tablet, 25 MG PO Q8H PRN for NAUSEA/VOMITING Prescribed by: OSVALDO CALDWELL on 05/14/20 1618 Promethazine HCl 25 Mg Tablet, 25 MG PO Q6H PRN for NAUSEA/VOMITING Prescribed by: MAKAYLA HAWKINS on 10/30/20 1333 Ropinirole HCl 4 Mg Tablet, 4 MG PO HS, (Reported) Scopolamine 1 Each Patch.td72, 1 EACH TD Q72H, (Reported) Sertraline HCl 50 Mg Tablet, 50 MG PO HS, (Reported) Sulfamethoxazole/Trimethoprim 1 Each Tablet, 1 EACH PO BID Prescribed by: IZABELA MAC on 04/30/20 1027 Patient Home Medication List Home Medication List Reviewed: Yes Review of Systems Review of Systems Constitutional: see HPI EENTM: no symptoms reported Respiratory: no symptoms reported Cardiovascular: edema Gastrointestinal: abdominal pain, nausea, vomiting Genitourinary: no symptoms reported : No Musculoskeletal: no symptoms reported Skin: no symptoms reported All Other Systems Reviewed Negative Unless Noted: Yes Past Pqlfsik-Cdtcwz-Xngull Hx Patient Social History Type Used: Cigarettes 2nd Hand Smoke Exposure: No Recent Hopitalizations: No Immunizations Up To Date Tetanus Booster (TDap): Less than 5yrs PED Vaccines UTD: No Date of Pneumonia Vaccine: May 17, 2012 Date of Influenza Vaccine: Jul 03, 2012 Seasonal Allergies Seasonal Allergies: No Past Medical History Surgeries: Yes (hernia repair, knee scopes) Adenoidectomy, Appendectomy, Gallbladder, 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, Nephrectomy, Orthopedic, Tonsillectomy Respiratory: Yes Asthma Currently Using CPAP: No Currently Using BIPAP: No Cardiac: Yes Hypertension Neurological: Yes Headaches /Migraines 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: Yes (HX ENDOMETRIOSIS ) 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: 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 [employer] History: 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 Sexually Transmitted Disease: No HIV/AIDS: No Genitourinary: No UTI-Chronic Gastrointestinal: Yes Abdominal Hernia, Gastroesophageal Reflux, Liver Disease/Jaundice, Obstructive Bowel, Pancreatitis, Polyps Musculoskeletal: Yes (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) Chronic Back Pain Endocrine: No HEENT: No Loss of Vision: Denies Hearing Impairment: Denies Cancer: Yes Kidney Did You Recieve Any Treatments: Yes What Type of Treatment Did You: Surgical Intervention Psychosocial: Yes Anxiety, Depression Integumentary: No Herpes Blood Disorders: No Adverse Reaction/Blood Tranf: No (N/A) Family Medical History Cardiovascular disease 19 FATHER Completed stroke 19 FATHER Diabetes mellitus 19 FATHER Hypercholesterolemia 19 FATHER 19 MOTHER Hypertension 19 FATHER 19 MOTHER Neoplasm 19 MOTHER Psychosocial problem 19 FATHER 19 MOTHER No Pertinent Family Hx, Cancer, Diabetes, Hypertension PSH: -RIGHT KNEE SCOPE X 5 -LEFT KNEE SCOPE X 2 -TONSILLECTOMY / ADENOIDECTOMY -APPENDECTOMY -CHOLECYSTECTOMY -NASAL FRACTURE REPAIR -COCCYX REMOVAL -LEFT NEPHRECTOMY FOR MALIGNANCY -LEFT MID ABDOMEN INCISIONAL HERNIA REPAIR -DRAINAGE OF ABDOMINAL WALL ABSCESS -MULTIPLE EGD'S AND COLONOSCOPIES--LAST ONE DONE HERE 10/26/19 -HYSTERECTOMY / BILATERAL SALPINGO-OOPHORECTOMY 2007 -06/23/20--RIGHT CHEST WALL/SHOULDER INJECTION FOR THORACIC OUTLET SYNDROME--DONE IN Physical Exam Vital Signs Vital Signs - First Documented 11/18/20 13:30 Temp 36.8 Pulse 96 Resp 16 B/P (MAP) 139/94 (109) Pulse Ox 95 O2 Delivery Room Air Capillary Refill : Height, Weight, BMI Height: 5'3.00" Weight: 246lbs. 0oz. [id number]; 48.00 BMI Method:Stated General Appearance: No Apparent Distress, WD/WN Eyes: Bilateral Eye Normal Inspection, Bilateral Eye PERRL Neck: Normal Inspection Respiratory: Lungs Clear, Normal Breath Sounds, No Accessory Muscle Use Cardiovascular: Regular Rate, Rhythm Gastrointestinal: Soft, Tenderness (Mild epigastric tenderness) Extremity: Normal Capillary Refill, Normal Inspection, Normal Range of Motion, Non Tender, No Pedal Edema (Mild lower extremity edema bilaterally) Neurologic/Psychiatric: Alert, Oriented x3, No Motor/Sensory Deficits, Normal Mood/Affect Progress/Results/Core Measures Suspected Sepsis SIRS Temperature: Pulse: Respiratory Rate: Laboratory Tests 11/18/20 14:02: White Blood Count 8.0 Blood Pressure / Mean: Laboratory Tests 11/18/20 14:02: Creatinine 0.82, Platelet Count 270, Total Bilirubin 0.5 Results/Orders Lab Results Laboratory Tests Test 11/18/20 14:02 Range/Units White Blood Count 8.0 4.3-11.0 10^3/uL Red Blood Count 4.71 3.80-5.11 10^6/uL Hemoglobin 12.7 11.5-16.0 g/dL Hematocrit 39 35-52 % Mean Corpuscular Volume 83 80-99 fL Mean Corpuscular Hemoglobin 27 25-34 pg Mean Corpuscular Hemoglobin Concent 33 32-36 g/dL Red Cell Distribution Width 13.2 10.0-14.5 % Platelet Count 270 130-400 10^3/uL Mean Platelet Volume 9.5 9.0-12.2 fL Immature Granulocyte % (Auto) 1 % Neutrophils (%) (Auto) 66 42-75 % Lymphocytes (%) (Auto) 26 12-44 % Monocytes (%) (Auto) 6 0-12 % Eosinophils (%) (Auto) 2 0-10 % Basophils (%) (Auto) 0 0-10 % Neutrophils # (Auto) 5.3 1.8-7.8 10^3/uL Lymphocytes # (Auto) 2.1 1.0-4.0 10^3/uL Monocytes # (Auto) 0.4 0.0-1.0 10^3/uL Eosinophils # (Auto) 0.2 0.0-0.3 10^3/uL Basophils # (Auto) 0.0 0.0-0.1 10^3/uL Immature Granulocyte # (Auto) 0.1 0.0-0.1 10^3/uL Sodium Level 142 135-145 MMOL/L Potassium Level 4.1 3.6-5.0 MMOL/L Chloride Level 107 98-107 MMOL/L Carbon Dioxide Level 20 L 21-32 MMOL/L Anion Gap 15 H 5-14 MMOL/L Blood Urea Nitrogen 13 7-18 MG/DL Creatinine 0.82 0.60-1.30 MG/DL Estimat Glomerular Filtration Rate > 60 BUN/Creatinine Ratio 16 Glucose Level 106 H 70-105 MG/DL Calcium Level 10.0 8.5-10.1 MG/DL Corrected Calcium 9.7 8.5-10.1 MG/DL Total Bilirubin 0.5 0.1-1.0 MG/DL Aspartate Amino Transf (AST/SGOT) 101 H 5-34 U/L Alanine Aminotransferase (ALT/SGPT) 73 H 0-55 U/L Alkaline Phosphatase 70 40-136 U/L Total Protein 7.6 6.4-8.2 GM/DL Albumin 4.4 3.2-4.5 GM/DL Lipase 82 H 8-78 U/L My Orders Orders - GEO BORJA MD Ed Iv/Invasive Line Start (11/18/20 13:46) Cbc With Automated Diff (11/18/20 13:46) Comprehensive Metabolic Panel (11/18/20 13:46) Lipase (11/18/20 13:46) Metoclopramide Injection (Reglan Injecti (11/18/20 14:00) Diphenhydramine Injection (Benadryl Inje (11/18/20 14:00) Ns Iv 1000 Ml (Sodium Chloride 0.9%) (11/18/20 14:00) Medications Given in ED Current Medications Medications Dose Ordered Sig/Neal Route Start Time Stop Time Status Last Admin Dose Admin Diphenhydramine HCl 25 mg ONCE ONCE IVP 11/18/20 14:00 11/18/20 14:01 DC 11/18/20 14:09 25 MG Metoclopramide HCl 10 mg ONCE ONCE IVP 11/18/20 14:00 11/18/20 14:01 DC 11/18/20 14:09 10 MG Vital Signs/I&O 11/18/20 13:30 Temp 36.8 Pulse 96 Resp 16 B/P (MAP) 139/94 (109) Pulse Ox 95 O2 Delivery Room Air Capillary Refill : Progress Note : Time: 15:00 Progress Note Janeth states that she is feeling much better she is actually starting to feel hungry. The Reglan and Benadryl worked well. Patient has about 450 cc left to go on her fluid bolus. Will wait about 30 minutes and then discharge her to home. She has Phenergan and Zofran at home. She will follow up with her primary care physician. She has no clinical or objective findings to warrant further testing or admission from the emergency department. All questions are sought and answered. Patient is stable for discharge. Departure Impression Primary Impression: Nausea and vomiting Disposition: 01 HOME, SELF-CARE Condition: Stable Departure-Patient Inst. Decision time for Depature: 15:01 Referrals: CARMEN GIBBS MD (PCP/Family) Primary Care Physician Patient Instructions: Nausea and Vomiting of (DC) Add. Discharge Instructions: Continue your home daily medications including Zofran and Phenergan as needed for nausea and vomiting. Push plenty of fluids to stay well-hydrated. Follow-up with your primary care physician. Return to the emergency department for any new or emergent or concerning symptoms. GEO BORJA MD Nov 18, 2020 13:45
[2020-11-18] MEDS ORDERED: diphenhydrAMINE 50 MG/ML INJ (BENADRYL) IVP ONE (14:00)
[2020-11-18] MEDS ORDERED: METOCLOPRAMIDE INJ 10 MG/2 ML (REGLAN) IVP ONE (14:00)
[2020-11-18] MEDS ORDERED: NS IV 1000 ML 1,000 ML IV SCH (14:00)
[2020-11-18 14:08] LABS: BASOPHILS % (AUTO) 0 % (0-10); EOSINOPHILS # (AUTO) 0.2 10^3/uL (0.0-0.3); EOSINOPHILS % (AUTO) 2 % (0-10); HEMATOCRIT 39 % (35-52); HEMOGLOBIN 12.7 g/dL (11.5-16.0); LYMPHOCYTES # (AUTO) 2.1 10^3/uL (1.0-4.0); LYMPHOCYTES % (AUTO) 26 % (12-44); MEAN CORPUSCULAR HEMOGLOBIN 27 pg (25-34); MEAN CORPUSCULAR HGB CONC 33 g/dL (32-36); MEAN CORPUSCULAR VOLUME 83 fL (80-99); MEAN PLATELET VOLUME 9.5 fL (9.0-12.2); MONOCYTES # (AUTO) 0.4 10^3/uL (0.0-1.0); MONOCYTES % (AUTO) 6 % (0-12); NEUTROPHILS # (AUTO) 5.3 10^3/uL (1.8-7.8); NEUTROPHILS % (AUTO) 66 % (42-75); PLATELET COUNT 270 10^3/uL (130-400)
[2020-11-18 14:31] LABS: ALBUMIN 4.4 GM/DL (3.2-4.5); CHLORIDE 107 MMOL/L (98-107); POTASSIUM 4.1 MMOL/L (3.6-5.0); SODIUM 142 MMOL/L (135-145)
[2020-11-18 14:33] LABS: GLUCOSE 106 MG/DL (70-105); TOTAL PROTEIN 7.6 GM/DL (6.4-8.2)
[2020-11-18 14:34] LABS: CARBON DIOXIDE 20 MMOL/L (21-32)
[2020-11-18 14:35] LABS: BILIRUBIN,TOTAL 0.5 MG/DL (0.1-1.0)
[2020-11-18 14:37] LABS: ALKALINE PHOSPHATASE 70 U/L (40-136); CREATININE SERUM 0.82 MG/DL (0.60-1.30); GFR ESTIMATED > 60
[2020-11-18 14:38] LABS: BUN/CREATININE RATIO 16
[2020-11-18 14:40] LABS: ALANINE AMINOTRANSFERASE 73 U/L (0-55); LIPASE 82 U/L (8-78)
[2020-11-18 15:28] VITALS: BP 103/85
== END 2020-11-18 15:28 | disposition home or self-care (01) ==
LOC: EDUNIT# 13:14 → ER 13:17
DX: R11.2 Nausea with vomiting, unspecified (principal); R10.13 Epigastric pain; R60.0 Localized edema; I10 Essential (primary) hypertension; J45.909 Unspecified asthma, uncomplicated; G43.909 Migraine, unspecified, not intractable, without status migrainosus; G89.29 Other chronic pain; M54.9 Dorsalgia, unspecified; F41.9 Anxiety disorder, unspecified; F32.9 Major depressive disorder, single episode, unspecified; Z87.19 Personal history of other diseases of the digestive system; Z90.5 Acquired absence of kidney; Z88.8 Allergy status to other drugs, medicaments and biological substances
CPT/HCPCS: 36415; 80053; 83690; 85025

== ENCOUNTER 2020-12-06 17:21 | Emergency (ER) | payer MEDICARE, MEDICAID ==
[~2020-12-06] VITALS: Ht 160 cm; Wt 124.7 kg
[~2020-12-06 17:21] MED LIST changes: -OMEP40CA27 PO; +OMEP40CA6 PO
--- NOTE | 2020-12-06 17:51 | ED Abdominal Pain ---
General Stated Complaint: VOMITING / ABD PAIN / RECTAL BLEEDING Source of Information: Patient Exam Limitations: No Limitations (MAKAYLA JEAN) History of Present Illness Date Seen by Provider: Dec 06, 2020 Time Seen by Provider: 17:39 Initial Comments Patient presents ER by private conveyance with chief complaint of 4 to 5 days progressively worsening abdominal pain nausea and loose stools. No fevers or chills. She has a history of chronic irritable bowel/inflammatory bowel gastritis. She had multiple endoscopies by Dr. Marroquin and has follow-up appointment with GI specialist at . Usually she gets relief from her Zofran. She is not having any dysuria. She says the nausea and epigastric abdominal pain and fullness is intermittent over the past 4 to 5 days. Today however she has felt very unwell and distended. She noticed some bright red blood in her stool after episode of loose stools this morning as well as when she wiped. She denies a history of hemorrhoids. (MAKAYLA JEAN) Allergies and Home Medications Allergies Coded Allergies: fentanyl (Verified Allergy, Unknown, 10/16/18) meperidine (Verified Allergy, Unknown, 10/16/18) penicillin G (Verified Allergy, Unknown, 10/16/18) trimethobenzamide (Unverified Allergy, Unknown, 09/05/20) vancomycin (Verified Adverse Reaction, Intermediate, severe itching, 10/26/19) Home Medications Acetaminophen 500 Mg Tablet, 1,000 MG PO Q8H PRN for PAIN-MILD (1-4), (Reported) Cefdinir 300 Mg Capsule, 300 MG PO BID Prescribed by: YAN CHAPARRO on 07/15/201906 Cyclobenzaprine HCl 10 Mg Tablet, 10 MG PO TID PRN for PAIN-MODERATE (5-7) Prescribed by: OSVALDO CALDWELL on 05/14/20 1612 Diphenhydramine HCl 25 Mg Capsule, 25 MG PO HS PRN for SLEEP, (Reported) Estradiol 1 Mg Tablet, 1 MG PO HS, (Reported) Fluticasone Propionate 9.9 Ml Frederica.susp, 2 SPRAY NS DAILY 2 SPRAYS PER NOSTRIL DAILY X 2 DAYS THEN 1 SPRAY DAILY Prescribed by: YAN CHAPARRO on 07/15/201906 Hydrocodone/Acetaminophen 1 Each Tablet, 2 EACH PO Q6H PRN for PAIN-MILD (1-4), (Reported) Hydrocodone/Acetaminophen 1 Each Tablet, 1 EACH PO Q6H PRN for PAIN-BREAKTHROUGH Prescribed by: OSVALDO CALDWELL on 05/14/20 161 L. Acidophilus/Pectin, [place] 1 Each Capsule, 2 EACH PO QID Prescribed by: YAN CHAPARRO on 07/15/201918 Levofloxacin 500 Mg Tablet, 500 MG PO DAILY Prescribed by: GEORGES FINN on 07/28/201811 Loratadine/Pseudoephedrine 1 Each Tab.er.12h, 1 EACH PO BID Prescribed by: YAN CHAPARRO on 07/15/201906 Methocarbamol 750 Mg Tablet, 750-1,500 MG PO Q6H PRN for PAIN-MILD (1-4) Prescribed by: GEORGES FINN on 02/10/20 125 Methylprednisolone 4 Mg Tab.ds.pk, 4 MG PO UD PER DOSE PACK INSTRUCTIONS Prescribed by: GEORGES FINN on 02/10/20 125 Methylprednisolone 4 Mg Tab.ds.pk, 4 MG PO UD PER DOSE PACK INSTRUCTIONS Prescribed by: YAN CHAPARRO on 07/15/201906 Multivitamin 1 Each Tablet, 1 EACH PO DAILY, (Reported) Ondansetron 8 Mg Tab.rapdis, 8 MG PO Q8H PRN for NAUSEA/VOMITING, (Reported) Ondansetron HCl 8 Mg Tablet, 8-16 MG PO Q6H PRN for NAUSEA-1ST LINE Prescribed by: MAKAYLA JEAN on 01/21/20 1621 Promethazine HCl 25 Mg Tablet, 25 MG PO Q6H PRN for NAUSEA/VOMITING Prescribed by: MAKAYLA JEAN on 01/21/20 1621 Promethazine HCl 25 Mg Tablet, 25 MG PO Q8H PRN for NAUSEA/VOMITING Prescribed by: OSVALDO CALDWELL on 05/14/20 1618 Promethazine HCl 25 Mg Tablet, 25 MG PO Q6H PRN for NAUSEA/VOMITING Prescribed by: MAKAYLA JEAN on 10/30/20 1333 Ropinirole HCl 4 Mg Tablet, 4 MG PO HS, (Reported) Scopolamine 1 Each Patch.td72, 1 EACH TD Q72H, (Reported) Sertraline HCl 50 Mg Tablet, 50 MG PO HS, (Reported) Sulfamethoxazole/Trimethoprim 1 Each Tablet, 1 EACH PO BID Prescribed by: IZABELA PATEL on 04/30/20 1027 Patient Home Medication List Home Medication List Reviewed: Yes (MAKAYLA JEAN) Review of Systems Review of Systems Constitutional: No chills, No diaphoresis EENTM: No Blurred Vision, No Double Vision, No Eye Pain Respiratory: Denies Cough, Denies Shortness of Air Cardiovascular: Denies Chest Pain, Denies Lightheadedness Gastrointestinal: See HPI, Abdomen Distended, Abdominal Pain; Denies Constipated; Diarrhea, Nausea, Poor Fluid Intake, Vomiting Genitourinary: Denies Burning, Denies Discharge Musculoskeletal: No back pain, No joint pain Skin: No pruritus, No rash Psychiatric/Neurological: Denies Headache, Denies Numbness (MAKAYLA JEAN) All Other Systems Reviewed Negative Unless Noted: Yes (MAKAYLA JEAN) Past Blquntk-Bcfacg-Quinaj Hx Patient Social History Alcohol Use: Denies Use Smoking Status: Current Everyday Smoker Type Used: Cigarettes 2nd Hand Smoke Exposure: No Recent Hopitalizations: No (MAKAYLA JEAN) Immunizations Up To Date Tetanus Booster (TDap): Less than 5yrs PED Vaccines UTD: No Date of Pneumonia Vaccine: May 17, 2012 Date of Influenza Vaccine: Jul 03, 2012 (MAKAYLA JEAN) Seasonal Allergies Seasonal Allergies: No (MAKAYLA JEAN) Past Medical History Surgeries: Yes (hernia repair, knee scopes) Adenoidectomy, Appendectomy, Gallbladder, 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, Nephrectomy, Orthopedic, Tonsillectomy Respiratory: Yes Asthma Currently Using CPAP: No Currently Using BIPAP: No Cardiac: Yes Hypertension Neurological: Yes Headaches /Migraines 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: Yes (HX ENDOMETRIOSIS ) 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 Sexually Transmitted Disease: No HIV/AIDS: No Genitourinary: No UTI-Chronic Gastrointestinal: Yes Abdominal Hernia, Gastroesophageal Reflux, Liver Disease/Jaundice, Obstructive Bowel, Pancreatitis, Polyps Musculoskeletal: Yes (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) Chronic Back Pain Endocrine: No HEENT: No Loss of Vision: Denies Hearing Impairment: Denies Cancer: Yes Kidney Did You Recieve Any Treatments: Yes What Type of Treatment Did You: Surgical Intervention Psychosocial: Yes Anxiety, Depression Integumentary: No Herpes Blood Disorders: No Adverse Reaction/Blood Tranf: No (N/A) (MAKAYLA JEAN) Family Medical History Cardiovascular disease 19 FATHER Completed stroke 19 FATHER Diabetes mellitus 19 FATHER Hypercholesterolemia 19 FATHER 19 MOTHER Hypertension 19 FATHER 19 MOTHER Neoplasm 19 MOTHER Psychosocial problem 19 FATHER 19 MOTHER No Pertinent Family Hx, Cancer, Diabetes, Hypertension PSH: -RIGHT KNEE SCOPE X 5 -LEFT KNEE SCOPE X 2 -TONSILLECTOMY / ADENOIDECTOMY -APPENDECTOMY -CHOLECYSTECTOMY -NASAL FRACTURE REPAIR -COCCYX REMOVAL -LEFT NEPHRECTOMY FOR MALIGNANCY -LEFT MID ABDOMEN INCISIONAL HERNIA REPAIR -DRAINAGE OF ABDOMINAL WALL ABSCESS -MULTIPLE EGD'S AND COLONOSCOPIES--LAST ONE DONE HERE 10/26/19 -HYSTERECTOMY / BILATERAL SALPINGO-OOPHORECTOMY 2007 -06/23/20--RIGHT CHEST WALL/SHOULDER INJECTION FOR THORACIC OUTLET SYNDROME--DONE IN (MAKAYLA JEAN) Physical Exam Vital Signs Vital Signs - First Documented 12/06/20 18:00 Temp 37.3 Pulse 102 Resp 18 B/P (MAP) 127/93 (104) Pulse Ox 97 (IZABELA RENDON MD) Vital Signs Capillary Refill : (MAKAYLA JEAN) Height/Weight/BMI Height: 5'3.00" Weight: 246lbs. 0oz. 111.754234nn; 41.00 BMI Method:Stated General Appearance: mild distress, obese HEENT: PERRL/EOMI, pharynx normal Neck: full range of motion, normal inspection Respiratory: lungs clear, normal breath sounds, no respiratory distress, no accessory muscle use Cardiovascular: normal peripheral pulses, regular rate, rhythm Peripheral Pulses: 2+ Radial Pulses (R), 2+ Radial Pulses (L) Gastrointestinal: normal bowel sounds (Quiescent), soft, tenderness (Epigastric region) Extremities: normal range of motion, non-tender, normal inspection, normal capillary refill Neurologic/Psychiatric: alert, oriented x 3 Skin: normal color, warm/dry (MAKAYLA JEAN) Progress/Results/Core Measures Results/Orders Lab Results Laboratory Tests Test 12/06/20 18:00 12/06/20 18:24 Range/Units White Blood Count 8.3 4.3-11.0 10^3/uL Red Blood Count 5.25 H 3.80-5.11 10^6/uL Hemoglobin 14.0 11.5-16.0 g/dL Hematocrit 44 35-52 % Mean Corpuscular Volume 84 80-99 fL Mean Corpuscular Hemoglobin 27 25-34 pg Mean Corpuscular Hemoglobin Concent 32 32-36 g/dL Red Cell Distribution Width 13.4 10.0-14.5 % Platelet Count 282 130-400 10^3/uL Mean Platelet Volume 9.7 9.0-12.2 fL Immature Granulocyte % (Auto) 0 % Neutrophils (%) (Auto) 62 42-75 % Lymphocytes (%) (Auto) 30 12-44 % Monocytes (%) (Auto) 4 0-12 % Eosinophils (%) (Auto) 3 0-10 % Basophils (%) (Auto) 1 0-10 % Neutrophils # (Auto) 5.2 1.8-7.8 10^3/uL Lymphocytes # (Auto) 2.5 1.0-4.0 10^3/uL Monocytes # (Auto) 0.4 0.0-1.0 10^3/uL Eosinophils # (Auto) 0.2 0.0-0.3 10^3/uL Basophils # (Auto) 0.0 0.0-0.1 10^3/uL Immature Granulocyte # (Auto) 0.0 0.0-0.1 10^3/uL Sodium Level 145 135-145 MMOL/L Potassium Level 3.9 3.6-5.0 MMOL/L Chloride Level 105 98-107 MMOL/L Carbon Dioxide Level 26 21-32 MMOL/L Anion Gap 14 5-14 MMOL/L Blood Urea Nitrogen 13 7-18 MG/DL Creatinine 0.94 0.60-1.30 MG/DL Estimat Glomerular Filtration Rate > 60 BUN/Creatinine Ratio 14 Glucose Level 114 H 70-105 MG/DL Calcium Level 10.4 H 8.5-10.1 MG/DL Corrected Calcium 8.5-10.1 MG/DL Total Bilirubin 0.5 0.1-1.0 MG/DL Aspartate Amino Transf (AST/SGOT) 73 H 5-34 U/L Alanine Aminotransferase (ALT/SGPT) 80 H 0-55 U/L Alkaline Phosphatase 81 40-136 U/L C-Reactive Protein High Sensitivity 1.24 H 0.00-0.50 MG/DL Total Protein 8.3 H 6.4-8.2 GM/DL Albumin 4.6 H 3.2-4.5 GM/DL Amylase Level 66 25-125 U/L Lipase 66 8-78 U/L Urine Color YELLOW Urine Clarity CLEAR Urine pH 6.0 5-9 Urine Specific [place] >=1.030 1.016-1.022 Urine Protein NEGATIVE NEGATIVE Urine Glucose (UA) NEGATIVE NEGATIVE Urine Ketones NEGATIVE NEGATIVE Urine Nitrite NEGATIVE NEGATIVE Urine Bilirubin NEGATIVE NEGATIVE Urine Urobilinogen 0.2 < = 1.0 MG/DL Urine Leukocyte Esterase NEGATIVE NEGATIVE Urine RBC (Auto) NEGATIVE NEGATIVE Urine RBC NONE /HPF Urine WBC 0-2 /HPF Urine Squamous Epithelial Cells 2-5 /HPF Urine Crystals NONE /LPF Urine Bacteria TRACE /HPF Urine Casts NONE /LPF Urine Mucus NEGATIVE /LPF Urine Culture Indicated NO (IZABELA RENDON MD) Medications Given in ED Current Medications Medications Dose Ordered Sig/Neal Route Start Time Stop Time Status Last Admin Dose Admin Diphenhydramine HCl 25 mg ONCE ONCE IVP 12/06/20 18:00 12/06/20 18:01 DC 12/06/20 18:08 25 MG Lactated Ringer's 1,000 ml @ 0 mls/hr Q0M ONCE IV 12/06/20 18:00 12/06/20 18:01 DC 12/06/20 18:08 1,000 MLS/HR Metoclopramide HCl 10 mg ONCE ONCE IVP 12/06/20 18:00 12/06/20 18:01 DC 12/06/20 18:08 10 MG Ondansetron HCl 8 mg ONCE ONCE IVP 12/06/20 18:00 12/06/20 18:01 DC 12/06/20 18:08 8 MG (IZABELA RENDON MD) Vital Signs/I&O 12/06/20 18:00 Temp 37.3 Pulse 102 Resp 18 B/P (MAP) 127/93 (104) Pulse Ox 97 (IZABELA RENDON MD) Progress Progress Note : Time: 17:58 Progress Note Norma Lozada for side effects and Zofran to help with her nausea and suspected gastroparesis. She is a little bit tender across to her abdomen but she has had colonoscopy with no mention of polyps or diverticulosis. Suspect a hemorrhoid makes more sense for the blood in the stool however if she has significantly elevated white count or CRP it may be reasonable to complete a CT to rule out significant colitis. Lipase and urinalysis as well as other labs. (MAKAYLA JEAN) Progress Note : Time: 19:12 Progress Note I assumed care of this patient from Dr. Jean. Labs were reviewed. She is feeling improved with the therapies she has received. Reviewed colonoscopy from last year with the patient. She had some small internal hemorrhoids. The colonoscopy was not ideal due to poor prep. I have advised her to follow-up with Dr. Marroquin regarding these issues. She has an appointment with him to have a port placed later this month. She is to call him and let him know about these issues prior to that procedure. (IZABELA RENDON MD) Transfer of Care Time: 18:20 Care transferred to: Dr. Patel (MAKAYLA JEAN) Departure Impression Primary Impression: Upper abdominal pain Additional Impressions: Loose stools Hematochezia Nausea and vomiting Qualified Codes: R11.2 - Nausea with vomiting, unspecified Disposition: HOME, SELF-CARE Condition: Improved Departure-Patient Inst. Decision time for Depature: 19:10 (IZABELA RENDON MD) Referrals: CARMEN GIBBS MD (PCP/Family) Primary Care Physician Patient Instructions: Bloody Stools Add. Discharge Instructions: Start with a clear liquid diet and gradually advance your diet with small quantities of bland food as tolerated. Please notify Dr. Marroquin of your current issues so that he is aware of this prior to your scheduled port placement. Please call his office tomorrow. Use your medications as previously prescribed. Call with questions or concerns. Return to the emergency room if you have worsening symptoms. Copy Copies To 1: LINDSEY MARROQUIN DO Copies To 2: CARMEN GIBBS MD, TITUS J Dec 06, 2020 17:51 IZABELA RENDON MD Dec 06, 2020 19:13
[2020-12-06] MEDS ORDERED: diphenhydrAMINE 50 MG/ML INJ (BENADRYL) IVP ONE (18:00)
[2020-12-06] MEDS ORDERED: ONDANSETRON 4 MG/2 ML (SDV) Z0FRAN IVP ONE (18:00)
[2020-12-06] MEDS ORDERED: METOCLOPRAMIDE INJ 10 MG/2 ML (REGLAN) IVP ONE (18:00)
[2020-12-06] MEDS ORDERED: LACTATED RINGERS 1,000 ML IV ONE (18:00)
[2020-12-06 18:08] LABS: BASOPHILS % (AUTO) 1 % (0-10); EOSINOPHILS # (AUTO) 0.2 10^3/uL (0.0-0.3); EOSINOPHILS % (AUTO) 3 % (0-10); HEMATOCRIT 44 % (35-52); LYMPHOCYTES # (AUTO) 2.5 10^3/uL (1.0-4.0); LYMPHOCYTES % (AUTO) 30 % (12-44); MEAN CORPUSCULAR HEMOGLOBIN 27 pg (25-34); MEAN CORPUSCULAR HGB CONC 32 g/dL (32-36); MEAN CORPUSCULAR VOLUME 84 fL (80-99); MEAN PLATELET VOLUME 9.7 fL (9.0-12.2); MONOCYTES # (AUTO) 0.4 10^3/uL (0.0-1.0); MONOCYTES % (AUTO) 4 % (0-12); NEUTROPHILS # (AUTO) 5.2 10^3/uL (1.8-7.8); NEUTROPHILS % (AUTO) 62 % (42-75); PLATELET COUNT 282 10^3/uL (130-400); WHITE BLOOD COUNT 8.3 10^3/uL (4.3-11.0)
[2020-12-06 18:20] LABS: ALBUMIN 4.6 GM/DL (3.2-4.5)
[2020-12-06 18:21] LABS: AMYLASE 66 U/L (25-125); CHLORIDE 105 MMOL/L (98-107); POTASSIUM 3.9 MMOL/L (3.6-5.0); SODIUM 145 MMOL/L (135-145)
[2020-12-06 18:22] LABS: CALCIUM 10.4 MG/DL (8.5-10.1)
[2020-12-06 18:23] LABS: GLUCOSE 114 MG/DL (70-105); TOTAL PROTEIN 8.3 GM/DL (6.4-8.2)
[2020-12-06 18:24] LABS: CARBON DIOXIDE 26 MMOL/L (21-32)
[2020-12-06 18:25] LABS: BILIRUBIN,TOTAL 0.5 MG/DL (0.1-1.0)
[2020-12-06 18:26] LABS: ALKALINE PHOSPHATASE 81 U/L (40-136)
[2020-12-06 18:27] LABS: CREATININE SERUM 0.94 MG/DL (0.60-1.30); GFR ESTIMATED > 60
[2020-12-06 18:28] LABS: BUN/CREATININE RATIO 14
[2020-12-06 18:29] LABS: ALANINE AMINOTRANSFERASE 80 U/L (0-55)
[2020-12-06 18:30] LABS: LIPASE 66 U/L (8-78)
[2020-12-06 18:33] LABS: BILIRUBIN,URINE NEGATIVE (NEGATIVE); CLARITY,URINE CLEAR; COLOR,URINE YELLOW; GLUCOSE, URINE (UA) NEGATIVE (NEGATIVE); KETONES,URINE NEGATIVE (NEGATIVE); LEUKOCYTE ESTERASE ,URINE NEGATIVE (NEGATIVE); NITRITE,URINE NEGATIVE (NEGATIVE); PROTEIN,URINE NEGATIVE (NEGATIVE)
[2020-12-06 18:45] LABS: BACTERIA,URINE TRACE /HPF; WBC,URINE 0-2 /HPF
[2020-12-06 19:23] VITALS: BP 105/63
[2020-12-07] MEDS ORDERED: SERT-414 PO (09:12)
[2020-12-07] MEDS ORDERED: ATOR20TA66 PO (09:16)
[2020-12-07] MEDS ORDERED: PROM25TA14 PO (09:16)
[2020-12-07] MEDS ORDERED: OMEP40CA6 PO (09:16)
[2020-12-07] MEDS ORDERED: LIPA1CAP4 PO (09:16)
[2020-12-07] MEDS ORDERED: SITA1TBM4 PO (09:16)
== END 2020-12-06 19:23 | disposition home or self-care (01) ==
LOC: EDUNIT# 17:21 → ER 17:23
DX: R10.13 Epigastric pain (principal); R11.2 Nausea with vomiting, unspecified; K92.1 Melena; R19.8 Other specified symptoms and signs involving the digestive system and abdomen; I10 Essential (primary) hypertension; J45.909 Unspecified asthma, uncomplicated; G89.29 Other chronic pain; M54.9 Dorsalgia, unspecified; K21.9 Gastro-esophageal reflux disease without esophagitis; F41.9 Anxiety disorder, unspecified; F32.9 Major depressive disorder, single episode, unspecified; E66.9 Obesity, unspecified; F17.210 Nicotine dependence, cigarettes, uncomplicated; Z68.41 Body mass index [BMI] 40.0-44.9, adult; Z90.49 Acquired absence of other specified parts of digestive tract; Z79.51 Long term (current) use of inhaled steroids; Z79.891 Long term (current) use of opiate analgesic; Z79.52 Long term (current) use of systemic steroids; Z79.899 Other long term (current) drug therapy
CPT/HCPCS: 36415; 80053; 81000; 82150; 83690; 85025; 86141

== ENCOUNTER 2020-12-07 05:38 | Outpatient (CLI) | payer MEDICARE, MEDICAID ==
[~2020-12-07] VITALS: Ht 160 cm; Wt 126.4 kg
[2020-12-07] MEDS ORDERED: SERT-414 PO (09:12)
[2020-12-07] MEDS ORDERED: LIPA1CAP4 PO (09:16)
[2020-12-07] MEDS ORDERED: OMEP40CA6 PO (09:16)
[2020-12-07] MEDS ORDERED: SITA1TBM4 PO (09:16)
[2020-12-07] MEDS ORDERED: PROM25TA14 PO (09:16)
[2020-12-07] MEDS ORDERED: ATOR20TA66 PO (09:16)
== END 2020-12-07 09:26 | disposition home or self-care (01) ==
LOC: PREOP 05:38
PROVIDERS: ATTEND Surgery
DX: Z01.818 Encounter for other preprocedural examination (principal)

== ENCOUNTER 2021-01-01 20:20 | Emergency (ER) | payer MEDICARE, MEDICAID ==
[~2021-01-01] VITALS: Ht 160 cm; Wt 108.9 kg
[~2021-01-01 20:20] MED LIST changes: +ATOR20TA66 PO; +LIPA1CAP4 PO; +SERT-414 PO; +SITA1TBM4 PO; -SULF1TAB35 PO
[2021-01-01 21:25] LABS: BASOPHILS # (AUTO) 0.1 10^3/uL (0.0-0.1); BASOPHILS % (AUTO) 1 % (0-10); EOSINOPHILS # (AUTO) 0.3 10^3/uL (0.0-0.3); EOSINOPHILS % (AUTO) 3 % (0-10); HEMATOCRIT 39 % (35-52); HEMOGLOBIN 12.3 g/dL (11.5-16.0); LYMPHOCYTES # (AUTO) 2.8 10^3/uL (1.0-4.0); LYMPHOCYTES % (AUTO) 31 % (12-44); MEAN CORPUSCULAR HEMOGLOBIN 27 pg (25-34); MEAN CORPUSCULAR HGB CONC 31 g/dL (32-36); MEAN CORPUSCULAR VOLUME 85 fL (80-99); MEAN PLATELET VOLUME 9.7 fL (9.0-12.2); MONOCYTES # (AUTO) 0.5 10^3/uL (0.0-1.0); MONOCYTES % (AUTO) 5 % (0-12); NEUTROPHILS # (AUTO) 5.2 10^3/uL (1.8-7.8); NEUTROPHILS % (AUTO) 60 % (42-75); PLATELET COUNT 254 10^3/uL (130-400); WHITE BLOOD COUNT 8.8 10^3/uL (4.3-11.0)
[2021-01-01 21:27] LABS: BILIRUBIN,URINE NEGATIVE (NEGATIVE); CLARITY,URINE CLEAR; COLOR,URINE YELLOW; GLUCOSE, URINE (UA) NEGATIVE (NEGATIVE); KETONES,URINE NEGATIVE (NEGATIVE); LEUKOCYTE ESTERASE ,URINE TRACE (NEGATIVE); NITRITE,URINE NEGATIVE (NEGATIVE); PROTEIN,URINE NEGATIVE (NEGATIVE)
[2021-01-01 21:39] LABS: BACTERIA,URINE TRACE /HPF
[2021-01-01 21:41] LABS: ALBUMIN 4.1 GM/DL (3.2-4.5); CHLORIDE 105 MMOL/L (98-107); POTASSIUM 3.7 MMOL/L (3.6-5.0); SODIUM 142 MMOL/L (135-145)
[2021-01-01 21:42] LABS: CALCIUM 9.5 MG/DL (8.5-10.1)
[2021-01-01 21:43] LABS: GLUCOSE 97 MG/DL (70-105); TOTAL PROTEIN 7.2 GM/DL (6.4-8.2)
[2021-01-01 21:44] LABS: CARBON DIOXIDE 24 MMOL/L (21-32)
[2021-01-01 21:45] LABS: BILIRUBIN,TOTAL 0.5 MG/DL (0.1-1.0)
[2021-01-01 21:46] LABS: ALKALINE PHOSPHATASE 67 U/L (40-136)
[2021-01-01 21:47] LABS: CREATININE SERUM 0.79 MG/DL (0.60-1.30); GFR ESTIMATED > 60
[2021-01-01 21:48] LABS: BUN/CREATININE RATIO 13
[2021-01-01 21:50] LABS: ALANINE AMINOTRANSFERASE 59 U/L (0-55); LIPASE 43 U/L (8-78)
[2021-01-01] MEDS ORDERED: PROMETHAZINE INJ 25 MG/ML (PHENERGAN) AMP IVP ONE (22:15)
[2021-01-01] MEDS ORDERED: NS IV 500 ML 500 ML IV ONE (22:15)
[2021-01-01] MEDS ORDERED: ONDANSETRON 4 MG/2 ML (SDV) Z0FRAN IVP ONE (22:15)
[2021-01-01] MEDS ORDERED: cefTRIAXone 1,000 MG in WATER (STERILE) FOR INJECTION 10 ML IV ONE (22:15)
--- NOTE | 2021-01-01 22:35 | ED Headache ---
General Chief Complaint: Head/Cervical Problems Stated Complaint: HEADACHE,ABD PAIN Nursing Triage Note: PT AMBULATE TO TRIAGE WITH C/O HEADACHE, N/V/D STARTING SATURDAY. PT REPORTS SHE DID NOT SEE HER PCP BECAUSE "THEY WOULD JUST SEND ME OUT HERE ANYWAY". PT STATES "I NEED IV FLUID". Source: patient Exam Limitations: no limitations History of Present Illness Date Seen by Provider: Jan 01, 2021 Time Seen by Provider: 21:38 Initial Comments Patient to the ER by private conveyance from home with chief complaint of abdominal discomfort, watery diarrhea since Saturday, 7 days ago and headache. No fevers or chills. Occasional cough but no shortness of air. She been using her Zofran and Phenergan [id number] for her chronic nausea and chronic pancreatitis. No blood in the stool. Follows with [facility]. She goes to get a port placed for her poor IV access by Dr. Roman on Saturday, 3 days from now. She has not been on antibiotics recently. She is not using anything for the diarrhea. Patient was recently started on sitagliptin. She has been on Metformin for a long time for her diabetes. Allergies and Home Medications Allergies Coded Allergies: fentanyl (Verified Allergy, Unknown, 10/16/18) meperidine (Verified Allergy, Unknown, 10/16/18) penicillin G (Verified Allergy, Unknown, 10/16/18) trimethobenzamide (Unverified Allergy, Unknown, 09/05/20) vancomycin (Verified Adverse Reaction, Intermediate, severe itching, 10/26/19) Home Medications Acetaminophen 500 Mg Tablet, 1,000 MG PO Q8H PRN for PAIN-MILD (1-4), (Reported) Atorvastatin Calcium 20 Mg Tablet, 20 MG PO HS, (Reported) Diphenhydramine HCl 25 Mg Capsule, 25 MG PO HS PRN for SLEEP, (Reported) Hydrocodone/Acetaminophen 1 Each Tablet, 2 EACH PO Q6H PRN for PAIN-MILD (1-4), (Reported) Lipase/Protease/Amylase 1 Each Capsule., 2 CAP PO TIDWM, (Reported) Multivitamin 1 Each Tablet, 1 EACH PO DAILY, (Reported) Nitrofurantoin Monohyd/M-Cryst 100 Mg Capsule, 1 TAB PO BID Prescribed by: MAKAYLA HAWKINS on 01/01/21 3217 Omeprazole 40 Mg Capsule.dr, 40 MG PO BID, (Reported) Ondansetron 8 Mg Tab.rapdis, 8 MG PO Q8H PRN for NAUSEA/VOMITING, (Reported) Promethazine HCl 25 Mg Tablet, 25 MG PO Q6H PRN for NAUSEA/VOMITING, (Reported) Ropinirole HCl 4 Mg Tablet, 4 MG PO HS, (Reported) Sertraline HCl 100 Mg Tablet, 100 MG PO HS, (Reported) Sitagliptin Phos/Metformin HCl 1 Each Tbmp.24hr, 2 TAB-CAP PO DAILY@1900, (Reported) Patient Home Medication List Home Medication List Reviewed: Yes Review of Systems Review of Systems Constitutional: No chills, No fever, No malaise Eyes: Denies Blindness, Denies Drainage Ears, Nose, Mouth, Throat: denies ear pain, denies ear discharge Respiratory: No cough, No short of breath Cardiovascular: No edema, No palpitations Gastrointestinal: abdominal pain, loss of appetite, nausea; No vomiting Genitourinary: No discharge, No dysuria Musculoskeletal: No back pain, No joint pain All Other Systems Reviewed Negative Unless Noted: Yes Past Ptrdfyg-Ldwdbi-Ctpgpw Hx Patient Social History Tobacco Use?: No Use of E-Cig and/or Vaping dev: No Substance use?: No Alcohol Use?: No Pt feels they are or have been: No Immunizations Up To Date Tetanus Booster (TDap): Less than 5yrs PED Vaccines UTD: No Seasonal Allergies Seasonal Allergies: No Past Medical History Surgeries: Yes (hernia repair x2, knee scopes) Adenoidectomy, Appendectomy, Gallbladder, 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, Nephrectomy, Orthopedic, Tonsillectomy Respiratory: Yes Asthma Currently Using CPAP: No Currently Using BIPAP: No Cardiac: No Hypertension Neurological: Yes Headaches /Migraines 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: Yes (HX ENDOMETRIOSIS ) 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: 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 [employer] ENG[employer] History: 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 Sexually Transmitted Disease: No HIV/AIDS: No Genitourinary: Yes UTI-Chronic Gastrointestinal: Yes (OBESITY) Abdominal Hernia, Gastroesophageal Reflux, Liver Disease/Jaundice, Obstructive Bowel, Pancreatitis, Polyps Musculoskeletal: Yes (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) Chronic Back Pain Endocrine: No (pancrease not working) HEENT: No Loss of Vision: Denies Hearing Impairment: Denies Cancer: Yes Kidney Did You Recieve Any Treatments: Yes What Type of Treatment Did You: Surgical Intervention Psychosocial: Yes Anxiety, Depression Integumentary: No Herpes Blood Disorders: No Adverse Reaction/Blood Tranf: No (N/A) Family Medical History Cardiovascular disease 19 FATHER Completed stroke 19 FATHER Diabetes mellitus 19 FATHER Hypercholesterolemia 19 FATHER 19 MOTHER Hypertension 19 FATHER 19 MOTHER Neoplasm 19 MOTHER Psychosocial problem 19 FATHER 19 MOTHER No Pertinent Family Hx, Cancer, Diabetes, Hypertension PSH: -RIGHT KNEE SCOPE X 5 -LEFT KNEE SCOPE X 2 -TONSILLECTOMY / ADENOIDECTOMY -APPENDECTOMY -CHOLECYSTECTOMY -NASAL FRACTURE REPAIR -COCCYX REMOVAL -LEFT NEPHRECTOMY FOR MALIGNANCY -LEFT MID ABDOMEN INCISIONAL HERNIA REPAIR -DRAINAGE OF ABDOMINAL WALL ABSCESS -MULTIPLE EGD'S AND COLONOSCOPIES--LAST ONE DONE HERE 10/26/19 -HYSTERECTOMY / BILATERAL SALPINGO-OOPHORECTOMY 2007 -06/23/20--RIGHT CHEST WALL/SHOULDER INJECTION FOR THORACIC OUTLET SYNDROME--DONE IN Physical Exam Vital Signs Vital Signs - First Documented 01/01/21 01/02/21 20:29 00:30 Temp 36.9 Pulse 90 Resp 17 B/P (MAP) 126/85 (99) Pulse Ox 99 O2 Delivery Room Air Capillary Refill : Less Than 3 Seconds Height, Weight, BMI Height: 5'3.00" Weight: 246lbs. 0oz. [id number]; 42.00 BMI Method:Stated General Appearance: mild distress, obese HEENT: PERRL/EOMI, pharynx normal Neck: full range of motion, normal inspection Cardiovascular: normal peripheral pulses, regular rate, rhythm Respiratory: normal breath sounds, no respiratory distress, no accessory muscle use Gastrointestinal: normal bowel sounds, soft, tenderness (Epigastric) Extremities: normal inspection, normal capillary refill Psychiatric: alert, oriented x 3 Crainal Nerves: normal hearing, normal speech Skin: normal color, warm/dry Progress/Results/Core Measures Results/Orders Lab Results Laboratory Tests Test 01/01/21 21:16 01/01/21 21:21 01/01/21 21:24 Range/Units White Blood Count 8.8 4.3-11.0 10^3/uL Red Blood Count 4.64 3.80-5.11 10^6/uL Hemoglobin 12.3 11.5-16.0 g/dL Hematocrit 39 35-52 % Mean Corpuscular Volume 85 80-99 fL Mean Corpuscular Hemoglobin 27 25-34 pg Mean Corpuscular Hemoglobin Concent 31 L 32-36 g/dL Red Cell Distribution Width 14.5 10.0-14.5 % Platelet Count 254 130-400 10^3/uL Mean Platelet Volume 9.7 9.0-12.2 fL Immature Granulocyte % (Auto) 0 % Neutrophils (%) (Auto) 60 42-75 % Lymphocytes (%) (Auto) 31 12-44 % Monocytes (%) (Auto) 5 0-12 % Eosinophils (%) (Auto) 3 0-10 % Basophils (%) (Auto) 1 0-10 % Neutrophils # (Auto) 5.2 1.8-7.8 10^3/uL Lymphocytes # (Auto) 2.8 1.0-4.0 10^3/uL Monocytes # (Auto) 0.5 0.0-1.0 10^3/uL Eosinophils # (Auto) 0.3 0.0-0.3 10^3/uL Basophils # (Auto) 0.1 0.0-0.1 10^3/uL Immature Granulocyte # (Auto) 0.0 0.0-0.1 10^3/uL Sodium Level 142 135-145 MMOL/L Potassium Level 3.7 3.6-5.0 MMOL/L Chloride Level 105 98-107 MMOL/L Carbon Dioxide Level 24 21-32 MMOL/L Anion Gap 13 5-14 MMOL/L Blood Urea Nitrogen 10 7-18 MG/DL Creatinine 0.79 0.60-1.30 MG/DL Estimat Glomerular Filtration Rate > 60 BUN/Creatinine Ratio 13 Glucose Level 97 70-105 MG/DL Calcium Level 9.5 8.5-10.1 MG/DL Corrected Calcium 9.4 8.5-10.1 MG/DL Total Bilirubin 0.5 0.1-1.0 MG/DL Aspartate Amino Transf (AST/SGOT) 48 H 5-34 U/L Alanine Aminotransferase (ALT/SGPT) 59 H 0-55 U/L Alkaline Phosphatase 67 40-136 U/L C-Reactive Protein High Sensitivity 2.46 H 0.00-0.50 MG/DL Total Protein 7.2 6.4-8.2 GM/DL Albumin 4.1 3.2-4.5 GM/DL Lipase 43 8-78 U/L Urine Color YELLOW Urine Clarity CLEAR Urine pH 6.0 5-9 Urine Specific Alpha >=1.030 1.016-1.022 Urine Protein NEGATIVE NEGATIVE Urine Glucose (UA) NEGATIVE NEGATIVE Urine Ketones NEGATIVE NEGATIVE Urine Nitrite NEGATIVE NEGATIVE Urine Bilirubin NEGATIVE NEGATIVE Urine Urobilinogen 0.2 < = 1.0 MG/DL Urine Leukocyte Esterase TRACE H NEGATIVE Urine RBC (Auto) NEGATIVE NEGATIVE Urine RBC NONE /HPF Urine WBC 10-25 H /HPF Urine Squamous Epithelial Cells 5-10 /HPF Urine Renal Epithelial Cells NONE /HPF Urine Crystals NONE /LPF Urine Bacteria TRACE /HPF Urine Casts NONE /LPF Urine Mucus MODERATE H /LPF Urine Culture Indicated NO Influenza Type A (RT-PCR) Not Detected Not Detecte Influenza Type B (RT-PCR) Not Detected Not Detecte SARS-CoV-2 RNA (RT-PCR) Not Detected Not Detecte My Orders Orders - MAKAYLA HAWKINS Covid 19 Inhouse Test (01/01/21 20:50) Influenza A And B By Pcr (01/01/21 20:50) Ua Culture If Indicated (01/01/21 20:50) Cbc With Automated Diff (01/01/21 21:15) Comprehensive Metabolic Panel (01/01/21 21:15) Hs C Reactive Protein (01/01/21 21:15) Lipase (01/01/21 21:15) Ceftriaxone (Rocephin) (01/01/21 22:15) Ns Iv 500 Ml (Sodium Chloride 0.9%) (01/01/21 22:15) Promethazine Injection (Phenergan Injec (01/01/21 22:15) Ondansetron Injection (Zofran Injectio (01/01/21 22:15) Ed Iv/Invasive Line Start (01/01/21 22:07) Diphenhydramine Injection (Benadryl Inje (01/01/21 22:45) Hydrocodone/Apap 5/325 Tablet (Lortab 5 (01/01/21 23:45) Lactated Ringers (Lr 1000 Ml Iv Solution (01/01/21 23:45) Medications Given in ED Current Medications Medications Dose Ordered Sig/Neal Route Start Time Stop Time Status Last Admin Dose Admin Acetaminophen/ Hydrocodone Bitart 2 ea ONCE ONCE PO 01/01/21 23:45 01/01/21 23:46 DC 01/01/21 23:45 2 EA Ceftriaxone Sodium 1000 mg/ Sterile Water 10 ml @ 200 mls/hr ONCE ONCE IV 01/01/21 22:15 01/01/21 22:17 DC 01/01/21 22:34 200 MLS/HR Diphenhydramine HCl 25 mg ONCE ONCE IVP 01/01/21 22:45 01/01/21 22:46 DC 01/01/21 22:46 25 MG Lactated Ringer's 1,000 ml @ 0 mls/hr Q0M ONCE IV 01/01/21 23:45 01/01/21 23:46 DC 01/01/21 23:45 2,000 MLS/HR Ondansetron HCl 8 mg ONCE ONCE IVP 01/01/21 22:15 01/01/21 22:16 DC 01/01/21 22:34 8 MG Promethazine HCl 25 mg ONCE ONCE IVP 01/01/21 22:15 01/01/21 22:16 DC 01/01/21 22:34 25 MG Sodium Chloride 500 ml @ 0 mls/hr Q0M ONCE IV 01/01/21 22:15 01/01/21 22:16 DC 01/01/21 22:35 999 MLS/HR Vital Signs/I&O 01/01/21 01/02/21 20:29 00:30 Temp 36.9 Pulse 90 91 Resp 17 20 B/P (MAP) 126/85 (99) 136/74 Pulse Ox 99 O2 Delivery Room Air Room Air Blood Pressure Mean: 99 Progress Progress Note #1: Time: 22:33 Progress Note Adverse effect from the sitagliptin?. If we can collect a watery stool sample then we will send it down for stool studies. We will give her a little bit of fluids some nausea medicine and obtain a urine sample and blood. Urine sample may be consistent with a bacterial infection. Give her a dose of Rocephin. Probiotics. Progress Note #2: Time: 23:37 Progress Note The patient's nausea has improved. She was not able to produce a stool sample. We will give her 2 tablets of hydrocodone for her headache and her diarrhea. Her labs were reviewed with her. We will put her on Macrobid outpatient and follow the culture. Hold ascitic Janes and Metformin until she sees her primary care provider and the diarrhea has resolved. She can do a outpatient stool sample. 1 more liter of lactated Ringer's. Patient is okay with this plan. Departure Impression Primary Impression: Mild dehydration Additional Impressions: Headache Qualified Codes: G44.209 - Tension-type headache, unspecified, not intractable Colitis, enteritis, and gastroenteritis of presumed infectious origin UTI (urinary tract infection) Qualified Codes: N30.00 - Acute cystitis without hematuria Disposition: HOME, SELF-CARE Condition: Stable Departure-Patient Inst. Decision time for Depature: 23:39 Referrals: CARMEN WHITTINGTON MD (PCP/Family) Primary Care Physician Patient Instructions: Colitis (DC), Acute Pain, Adult (DC) Add. Discharge Instructions: Drink plenty fluids. Use your nausea medicines as prescribed. If you collect a stool sample then you can bring it up to the lab and have it ran and I will have the results forwarded to Dr. Whittington. Follow-up with your primary care team later this week. Return for worsening intractable symptoms. Macrobid 1 capsule twice a day for the next 7 days. Probiotics twice a day or yogurt with active culture twice a day. Stop taking the sitagliptin/Metformin until you see your primary care doctor and your symptoms have resolved. All discharge instructions reviewed with patient and/or family. Voiced understanding. Scripts Nitrofurantoin Monohyd/M-Cryst (Macrobid 100 mg Capsule) 100 Mg Capsule 1 TAB PO BID for 7 Days, #14 CAP 0 Refills Prov: MAKAYLA HAWKINS 01/01/21 Copy Copies To 1: CARMEN WHITTINGTON MD, TITUS J Jan 01, 2021 22:34
[2021-01-01] MEDS ORDERED: diphenhydrAMINE 50 MG/ML INJ (BENADRYL) IVP ONE (22:45)
[2021-01-01] MEDS ORDERED: NITR-65 PO (23:43)
[2021-01-01] MEDS ORDERED: LACTATED RINGERS 1,000 ML IV ONE (23:45)
[2021-01-01] MEDS ORDERED: HYDROcodone/APAP 5 MG/325 MG (LORTAB) TAB PO ONE (23:45)
[2021-01-02 00:30] VITALS: BP 136/74
== END 2021-01-02 00:30 | disposition home or self-care (01) ==
LOC: EDUNIT# 20:20 → ER 20:23
DX: E86.0 Dehydration (principal); R51.9 Headache, unspecified; K52.9 Noninfective gastroenteritis and colitis, unspecified; N39.0 Urinary tract infection, site not specified; K21.9 Gastro-esophageal reflux disease without esophagitis; J45.909 Unspecified asthma, uncomplicated; I10 Essential (primary) hypertension; E66.9 Obesity, unspecified; G89.29 Other chronic pain; M54.9 Dorsalgia, unspecified; F41.9 Anxiety disorder, unspecified; E11.9 Type 2 diabetes mellitus without complications; F32.9 Major depressive disorder, single episode, unspecified; Z20.822 Contact with and (suspected) exposure to COVID-19; Z68.41 Body mass index [BMI] 40.0-44.9, adult; Z79.899 Other long term (current) drug therapy; Z79.891 Long term (current) use of opiate analgesic; Z79.84 Long term (current) use of oral hypoglycemic drugs
CPT/HCPCS: 36415; 80053; 81000; 83690; 85025; 86141; 87636

== ENCOUNTER → 2021-01-02 | Outpatient (CLI) | payer MEDICARE, MEDICAID | LOC: LAB 09:41 | PROVIDERS: ATTEND Emergency Medicine | DX: K52.9 Noninfective gastroenteritis and colitis, unspecified (principal) | CPT/HCPCS: 87015; 87045; 87046; 87324; 87328; 87329; 87449; 87899 ==

== ENCOUNTER 2021-01-04 08:58 | Day surgery (SDC) | payer MEDICARE, MEDICAID ==
[~2021-01-04] VITALS: Ht 160 cm; Wt 126.4 kg
[2021-01-04] MEDS ORDERED: LIDOCAINE/EPI 1%-1:100,000 (XYLOCAINE) 20ML ONE (09:10)
[2021-01-04] MEDS ORDERED: HEParin (CENTRAL IV FLUSH) 500 UNIT/5 ML SYR ONE (09:10)
[2021-01-04] MEDS ORDERED: 0.9% SODIUM CHLORIDE PF INJ 20 ML VIAL ONE (09:15)
[2021-01-04] MEDS ORDERED: CLINDAMYCIN 600 MG/50 ML IVPB 50 ML IV ONE ×2 (09:15→09:45)
[2021-01-04 09:20] VITALS: BP 126/80
[2021-01-04] MEDS ORDERED: LACTATED RINGERS 1,000 ML IV PRN (09:45)
[2021-01-04] MEDS ORDERED: PROPOFOL INJECTION 50 ML IV ONE (09:58)
[2021-01-04] MEDS ORDERED: MIDAZOLAM 2 MG/2 ML (VERSED) VIAL ONE (10:00)
--- NOTE | 2021-01-04 10:50 | Progress Note-Pre Operative ---
Pre-Operative Progress Note H&P Reviewed The H&P was reviewed, patient examined and no changes noted. Time Seen by Provider: 10:48 Date H&P Reviewed: Jan 04, 2021 Time H&P Reviewed: 10:48 Pre-Operative Diagnosis: Venous Insufficiency LINDSEY MARROQUIN DO Jan 04, 2021 10:50
--- NOTE | 2021-01-04 11:43 | Progress Note-Post Operative ---
Post-Operative Progess Note Surgeon (s)/Associate Dentist (s) Surgeon LINDSEY MARROQUIN DO Associate Dentist: SUNIL Aguilar Pre-Operative Diagnosis Venous Insufficiency Post-Operative Diagnosis same Procedure & Operative Findings Date of Procedure 01/04/21 Procedure Performed/Findings Gladys-Cath placement PROCEDURE: [LEFT] internal jugular port placement using ultrasound guidance. COMPLICATIONS: None. INDICATIONS: The patient is a 35 year old female with Venous insufficiency. Patient understands the risks and benefits of port placement and wished to proceed with the procedure. Consent was signed on the chart. PROCEDURE: The patient was taken to the operating suite, was prepped and draped in the sterile fashion. A surgical pause was performed. Ultrasound was used to locate the internal jugular vein. Once located anesthetic was infiltrated above it. Using micro-access kit, the right internal vein was accessed. Dark nonpulsatile blood was withdrawn. The wire was inserted. Fluoroscopy assured proper placement. The needle was removed. The micro-access dilator was advanced over the wire and the wire was removed. The regular wire was inserted and fluoroscopy assured proper placement. The wire was then secured. Local anesthetic was used to anesthetize from the neck for tunneling down to the right chest and for pocket creation. A #15 blade scalpel was used to make an incision over the left anterior chest. Cautery was used to dissect down to the pectoral fascia. A pocket was created with blunt dissection. The dilator sheath was then advanced over the wire under fluoroscopy and the dilator and wire were removed. The Groshong catheter was inserted through the sheath and the sheath was then removed. The Groshong wire was removed. The catheter was then tunneled to the right chest pocket. Fluoroscopy was used to cut to length and this was then attached to the port which was then placed within the pocket. The port was then accessed without difficulty. It was then flushed with saline and then heparin. The port was first sutured in place with 3-0 Prolene, to tack it to the chest wall. Next subcutaneous tissues were then reapproximated using 3-0 Vicryl. The areas were then washed and dried. Skin Affix was placed over incision. The insertion point of the neck Skin Affix was placed over the incision. The patient tolerated the procedure well without complication and was taken to recovery room in stable condition. Anesthesia Type LMA Estimated Blood Loss Estimated blood loss (mL): scant Specimens/Packing Specimens Removed none LINDSEY MARROQUIN DO Jan 04, 2021 11:43
--- NOTE | 2021-01-04 11:44 | Discharge Inst-Surgical ---
Discharge Inst-Surgical Depart Medication/Instructions New, Converted or Re-Newed RX: Other (Take home meds) Patient Instructions Follow up Appt: Make appointment for 1 week. [phone] Instructions: No lifting greater than 20 pounds. No strenuous activity. May shower in 24 hours, no tub bath or soaking. Use incentive spirometer at home as directed. No Smoking Skin/Wound Care: May remove bandages in am. You need to leave the Dermabond on incision it will fall off on it's own. Symptoms to Report: Appetite Changes, Extremity Discoloration, Numbness/Tingling, Swelling Increased, Bleeding Excessive, Eyesight Changes, Pain Increased, Urine Color Change, Constipation(Persistent), Fever over 101 degree F, Pain/Pressure in chest, Urinating Difficulty, Cough Up/Vomit Blood, Heart Beat Irreg/Pounding, Pain/Pressure in jaw, Cramps in feet or legs, Lightheadedness, Pain/Pressure in shoulder, Diarrhea(Persistent), Memory Changes Suddenly, Questions/Concerns, Weight gain consecutive days, Dizziness/Fainting, Nausea/Vomiting, Shortness of Breath, Weight gain over 2 pounds If questions or concerns contact your physician Or seek help at emergency department. Activity Activity as Tolerated: Yes Driving Instructions: No Driving/Refer to Dr. Berger Discharge Diet: No Restrictions Diet After 24 Hours: Clear Liquid if Nauseous If Any Problems/Questions/Issu: Contact Your Physician, Go to Emergency Room Skin/Wound Care Infection Signs and Symptoms: Increased Redness, Foul Odor of Wound, Increased Drainage, Skin Itchy or Has a Rash, Increased Swelling, Temperature Above 101 F Bathing Instructions: Shower Stitches/Eliseo/Dermabond Dis: LINDSEY Funes DO Jan 04, 2021 11:44
[2021-01-04 11:49] VITALS: BP 91/53
[2021-01-04 12:00] VITALS: BP 90/51
[2021-01-04] MEDS ORDERED: ONDANSETRON 4 MG/2 ML (SDV) Z0FRAN ONE (12:06)
[2021-01-04 12:10] VITALS: BP 94/63
[2021-01-04 12:25] VITALS: BP_SYST 104; BP_SYST 93; BP_DIAS 61
[2021-01-04 12:55] VITALS: BP 114/70
--- NOTE | 2021-01-04 14:25 | Diagnostic Imaging Report ---
INDICATION: Central line 4 seconds of actual fluoroscopy time utilized during placement of central venous catheter. Impression: Fluoroscopy was utilized during Central venous catheter placement. Dictated by: Dictated on workstation # [id number]
--- NOTE | 2021-01-04 14:53 | Anesthesia-General Post-Op ---
MAC Patient Condition Mental Status/LOC: Same as Preop Cardiovascular: Satisfactory Nausea/Vomiting: Absent Respiratory: Satisfactory Pain: Controlled Complications: Absent Post Op Complications Complications None Follow Up Care/Instructions Patient Instructions None needed. Anesthesiology Discharge Order Discharge Order Patient is doing well, no complaints, stable vital signs, no apparent adverse anesthesia problems. No complications reported per nursing. ROBB LOVELACE CRNA Jan 04, 2021 14:53
== END 2021-01-04 13:10 | disposition home or self-care (01) ==
LOC: SDC 08:58
PROVIDERS: ATTEND Surgery
DX: I87.2 Venous insufficiency (chronic) (peripheral) (principal); J45.909 Unspecified asthma, uncomplicated; K21.9 Gastro-esophageal reflux disease without esophagitis; K85.90 Acute pancreatitis without necrosis or infection, unspecified; E66.01 Morbid (severe) obesity due to excess calories; F32.9 Major depressive disorder, single episode, unspecified; F41.9 Anxiety disorder, unspecified; Z79.891 Long term (current) use of opiate analgesic; Z79.899 Other long term (current) drug therapy; Z90.49 Acquired absence of other specified parts of digestive tract; Z68.43 Body mass index [BMI] 50.0-59.9, adult; Z90.89 Acquired absence of other organs; Z83.3 Family history of diabetes mellitus; Z80.42 Family history of malignant neoplasm of prostate; Z82.49 Family history of ischemic heart disease and other diseases of the circulatory system
CPT/HCPCS: 76000; 82947; 87081

== ENCOUNTER 2021-01-07 21:30 | Emergency (ER) | payer MEDICARE, MEDICAID | END 2021-01-07 22:59 | disposition left against medical advice (07) | LOC: EDUNIT# 21:30 → ER 21:33 | DX: R07.89 Other chest pain (principal); J34.89 Other specified disorders of nose and nasal sinuses; Z98.890 Other specified postprocedural states ==

== ENCOUNTER 2021-01-20 15:24 | Emergency (ER) | payer MEDICARE, MEDICAID ==
[~2021-01-20] VITALS: Ht 157 cm; Wt 122.4 kg
[2021-01-20 15:48] VITALS: BP 132/77
--- NOTE | 2021-01-20 15:56 | ED Headache ---
General Chief Complaint: Head/Cervical Problems Stated Complaint: HEADACHE/TIRED Nursing Triage Note: PT PRESENTS TO ED WITH COMPLAINTS OF MEJIA AND NAUSEA SINCE YESTERDAY, Source: patient Exam Limitations: no limitations History of Present Illness Date Seen by Provider: Jan 20, 2021 Time Seen by Provider: 15:56 Initial Comments Headache photophobia nausea since last night. She states that she has been drinking a lot at home but does not feel like it is helping. She thinks she is dehydrated. Timing/Duration: 1 week Severity/Quality: pressure Associated Symptoms: denies symptoms Allergies and Home Medications Allergies Coded Allergies: fentanyl (Verified Allergy, Unknown, 10/16/18) meperidine (Verified Allergy, Unknown, 10/16/18) penicillin G (Verified Allergy, Unknown, 10/16/18) trimethobenzamide (Unverified Allergy, Unknown, 09/05/20) vancomycin (Verified Adverse Reaction, Intermediate, severe itching, 10/26/19) Home Medications Acetaminophen 500 Mg Tablet, 1,000 MG PO Q8H PRN for PAIN-MILD (1-4), (Reported) Atorvastatin Calcium 20 Mg Tablet, 20 MG PO HS, (Reported) Diphenhydramine HCl 25 Mg Capsule, 25 MG PO HS PRN for SLEEP, (Reported) Hydrocodone/Acetaminophen 1 Each Tablet, 2 EACH PO Q6H PRN for PAIN-MILD (1-4), (Reported) Lipase/Protease/Amylase 1 Each Capsule.dr, 2 CAP PO TIDWM, (Reported) Multivitamin 1 Each Tablet, 1 EACH PO DAILY, (Reported) Nitrofurantoin Monohyd/M-Cryst 100 Mg Capsule, 1 TAB PO BID Prescribed by: MAKAYLA HAWKINS on 01/01/21 4284 Omeprazole 40 Mg Capsule.dr, 40 MG PO BID, (Reported) Ondansetron 8 Mg Tab.rapdis, 8 MG PO Q8H PRN for NAUSEA/VOMITING, (Reported) Promethazine HCl 25 Mg Tablet, 25 MG PO Q6H PRN for NAUSEA/VOMITING, (Reported) Ropinirole HCl 4 Mg Tablet, 4 MG PO HS, (Reported) Sertraline HCl 100 Mg Tablet, 100 MG PO HS, (Reported) Sitagliptin Phos/Metformin HCl 1 Each Tbmp.24hr, 2 TAB-CAP PO DAILY@1900, (Reported) Patient Home Medication List Home Medication List Reviewed: Yes Review of Systems Review of Systems Constitutional: see HPI Eyes: No Symptoms Reported Ears, Nose, Mouth, Throat: no symptoms reported Respiratory: no symptoms reported Cardiovascular: no symptoms reported Genitourinary: no symptoms reported Musculoskeletal: no symptoms reported Skin: no symptoms reported Psychiatric/Neurological: See HPI, Headache Past Srzkven-Sejzet-Hvckmv Hx Patient Social History Tobacco Use?: No Use of E-Cig and/or Vaping dev: No Substance use?: No Alcohol Use?: No Pt feels they are or have been: No Immunizations Up To Date Tetanus Booster (TDap): Less than 5yrs PED Vaccines UTD: No Seasonal Allergies Seasonal Allergies: No Past Medical History Surgeries: Yes (hernia repair x2, knee scopes) Adenoidectomy, Appendectomy, Gallbladder, 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, Nephrectomy, Orthopedic, Tonsillectomy Respiratory: Yes Asthma Currently Using CPAP: No Currently Using BIPAP: No Cardiac: No Hypertension Neurological: Yes Headaches /Migraines 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: Yes (HX ENDOMETRIOSIS ) 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 Sexually Transmitted Disease: No HIV/AIDS: No Genitourinary: Yes UTI-Chronic Gastrointestinal: Yes (OBESITY) Abdominal Hernia, Gastroesophageal Reflux, Liver Disease/Jaundice, Obstructive Bowel, Pancreatitis, Polyps Musculoskeletal: Yes (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) Chronic Back Pain Endocrine: No (pancrease not working) HEENT: No Loss of Vision: Denies Hearing Impairment: Denies Cancer: Yes Kidney Did You Recieve Any Treatments: Yes What Type of Treatment Did You: Surgical Intervention Psychosocial: Yes Anxiety, Depression Integumentary: No Herpes Blood Disorders: No Adverse Reaction/Blood Tranf: No (N/A) Family Medical History Cardiovascular disease 19 FATHER Completed stroke 19 FATHER Diabetes mellitus 19 FATHER Hypercholesterolemia 19 FATHER 19 MOTHER Hypertension 19 FATHER 19 MOTHER Neoplasm 19 MOTHER Psychosocial problem 19 FATHER 19 MOTHER No Pertinent Family Hx, Cancer, Diabetes, Hypertension PSH: -RIGHT KNEE SCOPE X 5 -LEFT KNEE SCOPE X 2 -TONSILLECTOMY / ADENOIDECTOMY -APPENDECTOMY -CHOLECYSTECTOMY -NASAL FRACTURE REPAIR -COCCYX REMOVAL -LEFT NEPHRECTOMY FOR MALIGNANCY -LEFT MID ABDOMEN INCISIONAL HERNIA REPAIR -DRAINAGE OF ABDOMINAL WALL ABSCESS -MULTIPLE EGD'S AND COLONOSCOPIES--LAST ONE DONE HERE 10/26/19 -HYSTERECTOMY / BILATERAL SALPINGO-OOPHORECTOMY 2007 -06/23/20--RIGHT CHEST WALL/SHOULDER INJECTION FOR THORACIC OUTLET SYNDROME--DONE IN [facility] Physical Exam Vital Signs Vital Signs - First Documented 01/20/21 15:48 Temp 36.9 Pulse 79 Resp 20 B/P (MAP) 132/77 (95) Pulse Ox 96 Capillary Refill : Less Than 3 Seconds Height, Weight, BMI Height: 5'3.00" Weight: 246lbs. 0oz. [id number]; 49.00 BMI Method:Stated General Appearance: WD/WN, no apparent distress, obese HEENT: PERRL/EOMI, normal ENT inspection Neck: non-tender, full range of motion Respiratory: no respiratory distress, no accessory muscle use Extremities: normal range of motion, non-tender Psychiatric: alert, oriented x 3 Crainal Nerves: normal hearing, normal speech, PERRL Skin: normal color, warm/dry Progress/Results/Core Measures Results/Orders My Orders Orders - GEORGES FINN APRN Ketorolac Injection (Toradol Injection) (01/20/21 16:00) Prochlorperazine Injection (Compazine In (01/20/21 16:00) Diphenhydramine Injection (Benadryl Inje (01/20/21 16:00) Medications Given in ED Current Medications Medications Dose Ordered Sig/Neal Route Start Time Stop Time Status Last Admin Dose Admin Diphenhydramine HCl 25 mg ONCE ONCE IM 01/20/21 16:00 01/20/21 16:01 01/20/21 16:04 25 MG Ketorolac Tromethamine 60 mg ONCE ONCE IM 01/20/21 16:00 01/20/21 16:01 01/20/21 16:04 60 MG Vital Signs/I&O 01/20/21 15:48 Temp 36.9 Pulse 79 Resp 20 B/P (MAP) 132/77 (95) Pulse Ox 96 Blood Pressure Mean: 95 Departure Impression Primary Impression: Chronic headaches Disposition: 01 HOME, SELF-CARE Condition: Stable Departure-Patient Inst. Decision time for Depature: 16:28 Referrals: CARMEN GIBBS MD (PCP/Family) Primary Care Physician Patient Instructions: Chronic Pain Add. Discharge Instructions: All discharge instructions reviewed with patient and/or family. Voiced understanding. GEORGES FINN APRN Jan 20, 2021 15:56
[2021-01-20] MEDS ORDERED: PROCHLORPERAZINE 10 MG/2ML INJ (COMPAZINE) IM ONE (16:00)
[2021-01-20] MEDS ORDERED: diphenhydrAMINE 50 MG/ML INJ (BENADRYL) IM ONE (16:00)
[2021-01-20] MEDS ORDERED: KETOROLAC 60 MG/2 ML VIAL IM ONE (16:00)
== END 2021-01-20 16:32 | disposition home or self-care (01) ==
LOC: EDUNIT# 15:24 → ER 15:26
DX: R51.9 Headache, unspecified (principal); I10 Essential (primary) hypertension; K21.9 Gastro-esophageal reflux disease without esophagitis; E66.9 Obesity, unspecified; F41.9 Anxiety disorder, unspecified; F32.9 Major depressive disorder, single episode, unspecified; G89.29 Other chronic pain; M54.9 Dorsalgia, unspecified; Z68.42 Body mass index [BMI] 45.0-49.9, adult; Z79.891 Long term (current) use of opiate analgesic; Z79.899 Other long term (current) drug therapy
CPT/HCPCS: 99284

== ENCOUNTER 2021-01-22 19:52 | Emergency (ER) | payer MEDICARE, MEDICAID ==
[~2021-01-22] VITALS: Ht 157.5 cm; Wt 122.5 kg
[2021-01-22] MEDS ORDERED: LACTATED RINGERS 1,000 ML IV ONE (20:45)
[2021-01-22 21:19] LABS: BASOPHILS % (AUTO) 0 % (0-10); EOSINOPHILS # (AUTO) 0.3 10^3/uL (0.0-0.3); EOSINOPHILS % (AUTO) 3 % (0-10); HEMATOCRIT 40 % (35-52); HEMOGLOBIN 12.6 g/dL (11.5-16.0); LYMPHOCYTES # (AUTO) 3.1 10^3/uL (1.0-4.0); LYMPHOCYTES % (AUTO) 37 % (12-44); MEAN CORPUSCULAR HEMOGLOBIN 27 pg (25-34); MEAN CORPUSCULAR HGB CONC 32 g/dL (32-36); MEAN CORPUSCULAR VOLUME 84 fL (80-99); MEAN PLATELET VOLUME 9.7 fL (9.0-12.2); MONOCYTES # (AUTO) 0.4 10^3/uL (0.0-1.0); MONOCYTES % (AUTO) 5 % (0-12); NEUTROPHILS # (AUTO) 4.6 10^3/uL (1.8-7.8); NEUTROPHILS % (AUTO) 55 % (42-75); PLATELET COUNT 271 10^3/uL (130-400); WHITE BLOOD COUNT 8.4 10^3/uL (4.3-11.0)
--- NOTE | 2021-01-22 21:19 | ED General ---
General Chief Complaint: Glucose Problems Stated Complaint: HIGH BLOOD SUGAR, MEJIA Source of Information: Patient Exam Limitations: No Limitations History of Present Illness Date Seen by Provider: Jan 22, 2021 Time Seen by Provider: 20:26 Initial Comments 35-year-old female with past medical history of diabetes coming in because of an elevated blood sugar. She states that she takes Metformin in the morning and another medication at night but not insulin. Normally her blood sugars in the 100s. This morning she had a headache and felt like it was high so when she took it it was in the 700s. Took her Metformin and went down to the 500s. Got as low as 200 before raising back up to 300 this evening so that is why she presented to the emergency department. She states it has only been this high one other time in her life. She has been peeing quite frequently and does feel dehydrated. Has a mild headache that is constant and throbbing and it was slow in onset and feels similar to what she has when she has a high blood sugar. Denies any chest pain, shortness of breath, abdominal pain, nausea, vomiting, diarrhea, fever, chills, weakness, numbness, or any other concerns. Allergies and Home Medications Allergies Coded Allergies: fentanyl (Verified Allergy, Unknown, 10/16/18) meperidine (Verified Allergy, Unknown, 10/16/18) penicillin G (Verified Allergy, Unknown, 10/16/18) trimethobenzamide (Unverified Allergy, Unknown, 09/05/20) vancomycin (Verified Adverse Reaction, Intermediate, severe itching, 10/26/19) Home Medications Acetaminophen 500 Mg Tablet, 1,000 MG PO Q8H PRN for PAIN-MILD (1-4), (Reported) Atorvastatin Calcium 20 Mg Tablet, 20 MG PO HS, (Reported) Diphenhydramine HCl 25 Mg Capsule, 25 MG PO HS PRN for SLEEP, (Reported) Hydrocodone/Acetaminophen 1 Each Tablet, 2 EACH PO Q6H PRN for PAIN-MILD (1-4), (Reported) Lipase/Protease/Amylase 1 Each Capsule.dr, 2 CAP PO TIDWM, (Reported) Multivitamin 1 Each Tablet, 1 EACH PO DAILY, (Reported) Nitrofurantoin Monohyd/M-Cryst 100 Mg Capsule, 1 TAB PO BID Prescribed by: MAKAYLA HAWKINS on 01/01/21 4540 Omeprazole 40 Mg Capsule.dr, 40 MG PO BID, (Reported) Ondansetron 8 Mg Tab.rapdis, 8 MG PO Q8H PRN for NAUSEA/VOMITING, (Reported) Promethazine HCl 25 Mg Tablet, 25 MG PO Q6H PRN for NAUSEA/VOMITING, (Reported) Ropinirole HCl 4 Mg Tablet, 4 MG PO HS, (Reported) Sertraline HCl 100 Mg Tablet, 100 MG PO HS, (Reported) Sitagliptin Phos/Metformin HCl 1 Each Tbmp.24hr, 2 TAB-CAP PO DAILY@1900, (Reported) Patient Home Medication List Home Medication List Reviewed: Yes Review of Systems Review of Systems Constitutional: No fever EENTM: No hearing loss, No blurred vision Respiratory: No cough, No short of breath Cardiovascular: No chest pain Gastrointestinal: No abdominal pain, No diarrhea, No nausea, No vomiting Genitourinary: frequency Musculoskeletal: no symptoms reported; No joint pain Skin: No rash Psychiatric/Neurological: Denies Anxiety, Denies Depressed Hematologic/Lymphatic: No Symptoms Reported Immunological/Allergic: no symptoms reported All Other Systems Reviewed Negative Unless Noted: Yes Past Irqykvu-Zbbzsh-Hlejcs Hx Patient Social History Tobacco Use?: No Immunizations Up To Date Tetanus Booster (TDap): Less than 5yrs PED Vaccines UTD: No Seasonal Allergies Seasonal Allergies: No Past Medical History Surgeries: Yes (hernia repair x2, knee scopes) Adenoidectomy, Appendectomy, Gallbladder, 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, Nephrectomy, Orthopedic, Tonsillectomy Respiratory: Yes Asthma Currently Using CPAP: No Currently Using BIPAP: No Cardiac: No Hypertension Neurological: Yes Headaches /Migraines 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: Yes (HX ENDOMETRIOSIS ) 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: 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 Sexually Transmitted Disease: No HIV/AIDS: No Genitourinary: Yes UTI-Chronic Gastrointestinal: Yes (OBESITY) Abdominal Hernia, Gastroesophageal Reflux, Liver Disease/Jaundice, Obstructive Bowel, Pancreatitis, Polyps Musculoskeletal: Yes (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) Chronic Back Pain Endocrine: No (pancrease not working) HEENT: No Loss of Vision: Denies Hearing Impairment: Denies Cancer: Yes Kidney Did You Recieve Any Treatments: Yes What Type of Treatment Did You: Surgical Intervention Psychosocial: Yes Anxiety, Depression Integumentary: No Herpes Blood Disorders: No Adverse Reaction/Blood Tranf: No (N/A) Family Medical History Cardiovascular disease 19 FATHER Completed stroke 19 FATHER Diabetes mellitus 19 FATHER Hypercholesterolemia 19 FATHER 19 MOTHER Hypertension 19 FATHER 19 MOTHER Neoplasm 19 MOTHER Psychosocial problem 19 FATHER 19 MOTHER No Pertinent Family Hx, Cancer, Diabetes, Hypertension PSH: -RIGHT KNEE SCOPE X 5 -LEFT KNEE SCOPE X 2 -TONSILLECTOMY / ADENOIDECTOMY -APPENDECTOMY -CHOLECYSTECTOMY -NASAL FRACTURE REPAIR -COCCYX REMOVAL -LEFT NEPHRECTOMY FOR MALIGNANCY -LEFT MID ABDOMEN INCISIONAL HERNIA REPAIR -DRAINAGE OF ABDOMINAL WALL ABSCESS -MULTIPLE EGD'S AND COLONOSCOPIES--LAST ONE DONE HERE 10/26/19 -HYSTERECTOMY / BILATERAL SALPINGO-OOPHORECTOMY 2007 -06/23/20--RIGHT CHEST WALL/SHOULDER INJECTION FOR THORACIC OUTLET SYNDROME--DONE IN Physical Exam Vital Signs Vital Signs - First Documented 01/22/21 20:30 Temp 36.6 Pulse 88 Resp 18 B/P (MAP) 151/99 (116) Pulse Ox 98 O2 Delivery Room Air Capillary Refill : Height, Weight, BMI Height: 5'3.00" Weight: 246lbs. 0oz. [id number]; 49.00 BMI Method:Stated General Appearance: No Apparent Distress, WD/WN HEENT: PERRL/EOMI, TMs Normal, Normal ENT Inspection, Pharynx Normal Neck: Full Range of Motion, Normal Inspection, Non Tender, Supple Respiratory: Chest Non Tender, Lungs Clear, Normal Breath Sounds, No Accessory Muscle Use, No Respiratory Distress Cardiovascular: Regular Rate, Rhythm, No Edema, No Murmur, Normal Peripheral Pulses Gastrointestinal: Normal Bowel Sounds, Non Tender, Soft; No Distended, No Guarding Back: Normal Inspection, No CVA Tenderness, No Vertebral Tenderness Extremity: Normal Capillary Refill, Normal Inspection, Normal Range of Motion, Non Tender Neurologic/Psychiatric: Alert, No Motor/Sensory Deficits, Normal Mood/Affect Skin: Normal Color, Warm/Dry Lymphatic: No Adenopathy Progress/Results/Core Measures Suspected Sepsis SIRS Temperature: Pulse: Respiratory Rate: Laboratory Tests 01/22/21 21:05: White Blood Count 8.4 Blood Pressure / Mean: Laboratory Tests 01/22/21 21:05: Creatinine 0.88, Platelet Count 271, Total Bilirubin 0.3 Results/Orders Lab Results Laboratory Tests Test 01/22/21 21:05 01/22/21 21:11 Range/Units White Blood Count 8.4 4.3-11.0 10^3/uL Red Blood Count 4.72 3.80-5.11 10^6/uL Hemoglobin 12.6 11.5-16.0 g/dL Hematocrit 40 35-52 % Mean Corpuscular Volume 84 80-99 fL Mean Corpuscular Hemoglobin 27 25-34 pg Mean Corpuscular Hemoglobin Concent 32 32-36 g/dL Red Cell Distribution Width 14.4 10.0-14.5 % Platelet Count 271 130-400 10^3/uL Mean Platelet Volume 9.7 9.0-12.2 fL Immature Granulocyte % (Auto) 0 % Neutrophils (%) (Auto) 55 42-75 % Lymphocytes (%) (Auto) 37 12-44 % Monocytes (%) (Auto) 5 0-12 % Eosinophils (%) (Auto) 3 0-10 % Basophils (%) (Auto) 0 0-10 % Neutrophils # (Auto) 4.6 1.8-7.8 10^3/uL Lymphocytes # (Auto) 3.1 1.0-4.0 10^3/uL Monocytes # (Auto) 0.4 0.0-1.0 10^3/uL Eosinophils # (Auto) 0.3 0.0-0.3 10^3/uL Basophils # (Auto) 0.0 0.0-0.1 10^3/uL Immature Granulocyte # (Auto) 0.0 0.0-0.1 10^3/uL Sodium Level 143 135-145 MMOL/L Potassium Level 3.5 L 3.6-5.0 MMOL/L Chloride Level 104 98-107 MMOL/L Carbon Dioxide Level 27 21-32 MMOL/L Anion Gap 12 5-14 MMOL/L Blood Urea Nitrogen 11 7-18 MG/DL Creatinine 0.88 0.60-1.30 MG/DL Estimat Glomerular Filtration Rate 73 BUN/Creatinine Ratio 13 Glucose Level 138 H 70-105 MG/DL Calcium Level 9.8 8.5-10.1 MG/DL Corrected Calcium 9.6 8.5-10.1 MG/DL Total Bilirubin 0.3 0.1-1.0 MG/DL Aspartate Amino Transf (AST/SGOT) 50 H 5-34 U/L Alanine Aminotransferase (ALT/SGPT) 62 H 0-55 U/L Alkaline Phosphatase 83 40-136 U/L Total Protein 8.0 6.4-8.2 GM/DL Albumin 4.3 3.2-4.5 GM/DL Serum Test, Qualitative NEGATIVE NEGATIVE Urine Color YELLOW Urine Clarity CLEAR Urine pH 5.5 5-9 Urine Specific [place] 1.020 1.016-1.022 Urine Protein NEGATIVE NEGATIVE Urine Glucose (UA) NEGATIVE NEGATIVE Urine Ketones NEGATIVE NEGATIVE Urine Nitrite NEGATIVE NEGATIVE Urine Bilirubin NEGATIVE NEGATIVE Urine Urobilinogen 0.2 < = 1.0 MG/DL Urine Leukocyte Esterase NEGATIVE NEGATIVE Urine RBC (Auto) NEGATIVE NEGATIVE Urine RBC NONE /HPF Urine WBC NONE /HPF Urine Squamous Epithelial Cells 2-5 /HPF Urine Crystals NONE /LPF Urine Bacteria TRACE /HPF Urine Casts NONE /LPF Urine Mucus NEGATIVE /LPF Urine Culture Indicated NO My Orders Orders - LYSSA HENDERSON MD Accucheck Stat ONCE (01/22/21 20:36) Ed Iv/Invasive Line Start (01/22/21 20:36) Cbc With Automated Diff (01/22/21 20:36) Comprehensive Metabolic Panel (01/22/21 20:36) Hcg,Qualitative Serum (01/22/21 20:36) Ua Culture If Indicated (01/22/21 20:36) Lactated Ringers (Lr 1000 Ml Iv Solution (01/22/21 20:45) Medications Given in ED Current Medications Medications Dose Ordered Sig/Neal Route Start Time Stop Time Status Last Admin Dose Admin Lactated Ringer's 1,000 ml @ 0 mls/hr Q0M ONCE IV 01/22/21 20:45 01/22/21 20:46 DC 01/22/21 21:29 0 MLS/HR Vital Signs/I&O 01/22/21 20:30 Temp 36.6 Pulse 88 Resp 18 B/P (MAP) 151/99 (116) Pulse Ox 98 O2 Delivery Room Air Capillary Refill : Progress Note : Progress Note 35-year-old female with above history coming in due to elevated blood sugar. ABCs were intact and vitals are stable on presentation. Physical exam is reassuring with soft nondistended nontender abdomen. Fortunately after getting labs her glucose is actually in the 130s which is reassuring. Creatinine normal and electrolytes normal. She was given a liter of IV fluids. She has not required any insulin at this time and I am unsure if either her checks at home were incorrect or if it just self resolved. Regardless, I believe she is stable for discharge. She should follow-up with her primary care for provider tomorrow. She should continue to check her blood sugar multiple times tomorrow to be sure that it continues on a normal trend. I believe she is stable for discharge. She was sent home with strict return precautions. Departure Impression Primary Impression: Hyperglycemia Disposition: HOME, SELF-CARE Condition: Stable Departure-Patient Inst. Decision time for Depature: 22:12 Referrals: CARMEN GIBBS MD (PCP/Family) Primary Care Physician Patient Instructions: Type 2 Diabetes (DC) Add. Discharge Instructions: You are seen in the emergency department because you were concerned your blood sugar was high. Fortunately, it is around 130 while here. Please continue to take your medications as prescribed, and drink plenty of water. Please call your primary care provider tomorrow to see if they would like to adjust any of your medications. Take your blood sugar multiple times tomorrow to be sure that it is continuing in a normal trend. All discharge instructions reviewed with patient and/or family. Voiced understanding. LYSSA HENDERSON MD Jan 22, 2021 21:19
[2021-01-22 21:20] LABS: BILIRUBIN,URINE NEGATIVE (NEGATIVE); CLARITY,URINE CLEAR; COLOR,URINE YELLOW; GLUCOSE, URINE (UA) NEGATIVE (NEGATIVE); KETONES,URINE NEGATIVE (NEGATIVE); LEUKOCYTE ESTERASE ,URINE NEGATIVE (NEGATIVE); NITRITE,URINE NEGATIVE (NEGATIVE); PH,URINE 5.5 (5-9); PROTEIN,URINE NEGATIVE (NEGATIVE)
[2021-01-22 21:26] LABS: BACTERIA,URINE TRACE /HPF
[2021-01-22 21:27] LABS: ALBUMIN 4.3 GM/DL (3.2-4.5); POTASSIUM 3.5 MMOL/L (3.6-5.0)
[2021-01-22 21:29] LABS: CALCIUM 9.8 MG/DL (8.5-10.1)
[2021-01-22 21:31] LABS: BILIRUBIN,TOTAL 0.3 MG/DL (0.1-1.0)
[2021-01-22 21:33] LABS: CREATININE SERUM 0.88 MG/DL (0.60-1.30)
[2021-01-22 22:20] VITALS: BP 137/85
== END 2021-01-22 22:23 | disposition home or self-care (01) ==
LOC: EDUNIT# 19:52 → ER 19:54
DX: E11.65 Type 2 diabetes mellitus with hyperglycemia (principal); J45.909 Unspecified asthma, uncomplicated; I10 Essential (primary) hypertension; K21.9 Gastro-esophageal reflux disease without esophagitis; E66.9 Obesity, unspecified; F41.9 Anxiety disorder, unspecified; F32.9 Major depressive disorder, single episode, unspecified; G89.29 Other chronic pain; M54.9 Dorsalgia, unspecified; Z68.42 Body mass index [BMI] 45.0-49.9, adult; Z79.84 Long term (current) use of oral hypoglycemic drugs; Z79.899 Other long term (current) drug therapy; Z79.891 Long term (current) use of opiate analgesic
CPT/HCPCS: 36415; 80053; 81000; 84703; 85025

== ENCOUNTER → 2021-01-24 | Outpatient (CLI) | payer MEDICARE, MEDICAID ==
--- NOTE | 2021-01-24 11:39 | Diagnostic Imaging Report ---
INDICATION: Port-A-Cath malfunction. PA and lateral chest. Left IJ Port-A-Cath tip projects over the SVC. Heart size and pulmonary vascularity are normal. Lungs are clear. There are no effusions or pneumothoraces. IMPRESSION: No acute abnormalities in the chest. Dictated by: Dictated on workstation # [id number]
== END ==
LOC: RAD 10:29
PROVIDERS: ATTEND Surgery
DX: T82.598A Other mechanical complication of other cardiac and vascular devices and implants, initial encounter (principal)
CPT/HCPCS: 71046

== ENCOUNTER 2021-02-10 15:32 | Emergency (ER) | payer MEDICARE, MEDICAID ==
[~2021-02-10] VITALS: Ht 160.2 cm; Wt 122.5 kg
[2021-02-10] MEDS ORDERED: NS IV 1000 ML 1,000 ML IV SCH (15:45)
[2021-02-10] MEDS ORDERED: diphenhydrAMINE 50 MG/ML INJ (BENADRYL) IVP ONE (16:00)
[2021-02-10] MEDS ORDERED: METOCLOPRAMIDE INJ 10 MG/2 ML (REGLAN) IVP ONE (16:00)
--- NOTE | 2021-02-10 16:00 | ED GI ---
General Chief Complaint: Abdominal/GI Problems Stated Complaint: ABDOMINAL PAIN Source of Information: Patient Exam Limitations: No Limitations History of Present Illness Date Seen by Provider: Feb 10, 2021 Time Seen by Provider: 16:00 Initial Comments To ER with abdominal pain and nausea. Timing/Duration: 1/2 Hour Severity/Quality: Moderate Radiation: No Radiation Activities at Onset: None Associated Symptoms: Denies Symptoms Allergies and Home Medications Allergies Coded Allergies: fentanyl (Verified Allergy, Unknown, 10/16/18) meperidine (Verified Allergy, Unknown, 10/16/18) penicillin G (Verified Allergy, Unknown, 10/16/18) trimethobenzamide (Unverified Allergy, Unknown, 09/05/20) vancomycin (Verified Adverse Reaction, Intermediate, severe itching, 10/26/19) Home Medications Acetaminophen 500 Mg Tablet, 1,000 MG PO Q8H PRN for PAIN-MILD (1-4), (Reported) Atorvastatin Calcium 20 Mg Tablet, 20 MG PO HS, (Reported) Diphenhydramine HCl 25 Mg Capsule, 25 MG PO HS PRN for SLEEP, (Reported) Hydrocodone/Acetaminophen 1 Each Tablet, 2 EACH PO Q6H PRN for PAIN-MILD (1-4), (Reported) Lipase/Protease/Amylase 1 Each Capsule.dr, 2 CAP PO TIDWM, (Reported) Multivitamin 1 Each Tablet, 1 EACH PO DAILY, (Reported) Nitrofurantoin Monohyd/M-Cryst 100 Mg Capsule, 1 TAB PO BID Prescribed by: MAKAYLA HAWKINS on 01/01/21 3473 Omeprazole 40 Mg Capsule.dr, 40 MG PO BID, (Reported) Ondansetron 8 Mg Tab.rapdis, 8 MG PO Q8H PRN for NAUSEA/VOMITING, (Reported) Promethazine HCl 25 Mg Tablet, 25 MG PO Q6H PRN for NAUSEA/VOMITING, (Reported) Ropinirole HCl 4 Mg Tablet, 4 MG PO HS, (Reported) Sertraline HCl 100 Mg Tablet, 100 MG PO HS, (Reported) Sitagliptin Phos/Metformin HCl 1 Each Tbmp.24hr, 2 TAB-CAP PO DAILY@1900, (Reported) Patient Home Medication List Home Medication List Reviewed: Yes Review of Systems Review of Systems Constitutional: see HPI EENTM: No Symptoms Reported Respiratory: No Symptoms Reported Cardiovascular: No Symptoms Reported Gastrointestinal: See HPI, Abdominal Pain Genitourinary: No Symptoms Reported Musculoskeletal: no symptoms reported Skin: no symptoms reported Psychiatric/Neurological: No Symptoms Reported Endocrine: No Symptoms Reported Hematologic/Lymphatic: No Symptoms Reported Past Nifucnm-Cfarlr-Lramba Hx Immunizations Up To Date Tetanus Booster (TDap): Less than 5yrs PED Vaccines UTD: No Seasonal Allergies Seasonal Allergies: No Past Medical History Surgeries: Yes (hernia repair x2, knee scopes) Adenoidectomy, Appendectomy, Gallbladder, 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, Nephrectomy, Orthopedic, Tonsillectomy Respiratory: Yes Asthma Currently Using CPAP: No Currently Using BIPAP: No Cardiac: No Hypertension Neurological: Yes Headaches /Migraines 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: Yes (HX ENDOMETRIOSIS ) 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: 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 [employer]IAN History: 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 Sexually Transmitted Disease: No HIV/AIDS: No Genitourinary: Yes UTI-Chronic Gastrointestinal: Yes (OBESITY) Abdominal Hernia, Gastroesophageal Reflux, Liver Disease/Jaundice, Obstructive Bowel, Pancreatitis, Polyps Musculoskeletal: Yes (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) Chronic Back Pain Endocrine: No (pancrease not working) HEENT: No Loss of Vision: Denies Hearing Impairment: Denies Cancer: Yes Kidney Did You Recieve Any Treatments: Yes What Type of Treatment Did You: Surgical Intervention Psychosocial: Yes Anxiety, Depression Integumentary: No Herpes Blood Disorders: No Adverse Reaction/Blood Tranf: No (N/A) Family Medical History Cardiovascular disease 19 FATHER Completed stroke 19 FATHER Diabetes mellitus 19 FATHER Hypercholesterolemia 19 FATHER 19 MOTHER Hypertension 19 FATHER 19 MOTHER Neoplasm 19 MOTHER Psychosocial problem 19 FATHER 19 MOTHER No Pertinent Family Hx, Cancer, Diabetes, Hypertension PSH: -RIGHT KNEE SCOPE X 5 -LEFT KNEE SCOPE X 2 -TONSILLECTOMY / ADENOIDECTOMY -APPENDECTOMY -CHOLECYSTECTOMY -NASAL FRACTURE REPAIR -COCCYX REMOVAL -LEFT NEPHRECTOMY FOR MALIGNANCY -LEFT MID ABDOMEN INCISIONAL HERNIA REPAIR -DRAINAGE OF ABDOMINAL WALL ABSCESS -MULTIPLE EGD'S AND COLONOSCOPIES--LAST ONE DONE HERE 10/26/19 -HYSTERECTOMY / BILATERAL SALPINGO-OOPHORECTOMY 2007 -06/23/20--RIGHT CHEST WALL/SHOULDER INJECTION FOR THORACIC OUTLET SYNDROME--DONE IN Physical Exam Vital Signs Vital Signs - First Documented 02/10/21 15:40 Temp 36.6 Pulse 84 Resp 18 B/P (MAP) 142/86 (104) Pulse Ox 100 O2 Delivery Room Air Capillary Refill : Height/Weight/BMI Height: 5'3.00" Weight: 246lbs. 0oz. 111.535855ix; 49.00 BMI Method:Stated General Appearance: WD/WN, no apparent distress, obese Neck: non-tender, full range of motion Respiratory: no respiratory distress, no accessory muscle use Cardiovascular: regular rate, rhythm, no murmur Gastrointestinal: normal bowel sounds, non tender, soft Neurologic/Psychiatric: alert, normal mood/affect, oriented x 3 Skin: normal color, warm/dry Progress/Results/Core Measures Results/Orders Lab Results Laboratory Tests Test 02/10/21 16:10 Range/Units White Blood Count 7.9 4.3-11.0 10^3/uL Red Blood Count 4.83 3.80-5.11 10^6/uL Hemoglobin 13.1 11.5-16.0 g/dL Hematocrit 41 35-52 % Mean Corpuscular Volume 84 80-99 fL Mean Corpuscular Hemoglobin 27 25-34 pg Mean Corpuscular Hemoglobin Concent 32 32-36 g/dL Red Cell Distribution Width 14.6 H 10.0-14.5 % Platelet Count 272 130-400 10^3/uL Mean Platelet Volume 9.6 9.0-12.2 fL Immature Granulocyte % (Auto) 0 % Neutrophils (%) (Auto) 60 42-75 % Lymphocytes (%) (Auto) 32 12-44 % Monocytes (%) (Auto) 5 0-12 % Eosinophils (%) (Auto) 3 0-10 % Basophils (%) (Auto) 1 0-10 % Neutrophils # (Auto) 4.7 1.8-7.8 10^3/uL Lymphocytes # (Auto) 2.5 1.0-4.0 10^3/uL Monocytes # (Auto) 0.4 0.0-1.0 10^3/uL Eosinophils # (Auto) 0.2 0.0-0.3 10^3/uL Basophils # (Auto) 0.0 0.0-0.1 10^3/uL Immature Granulocyte # (Auto) 0.0 0.0-0.1 10^3/uL Sodium Level 141 135-145 MMOL/L Potassium Level 3.7 3.6-5.0 MMOL/L Chloride Level 108 H 98-107 MMOL/L Carbon Dioxide Level 24 21-32 MMOL/L Anion Gap 9 5-14 MMOL/L Blood Urea Nitrogen 12 7-18 MG/DL Creatinine 0.89 0.60-1.30 MG/DL Estimat Glomerular Filtration Rate 72 BUN/Creatinine Ratio 13 Glucose Level 110 H 70-105 MG/DL Calcium Level 10.1 8.5-10.1 MG/DL Lipase 45 8-78 U/L My Orders Orders - GEORGES FINN APRN Cbc With Automated Diff (02/10/21 15:38) Basic Metabolic Panel (02/10/21 15:38) Lipase (02/10/21 15:38) Ns Iv 1000 Ml (Sodium Chloride 0.9%) (02/10/21 15:45) Diphenhydramine Injection (Benadryl Inje (02/10/21 16:00) Metoclopramide Injection (Reglan Injecti (02/10/21 16:00) Medications Given in ED Current Medications Medications Dose Ordered Sig/Neal Route Start Time Stop Time Status Last Admin Dose Admin Diphenhydramine HCl 25 mg ONCE ONCE IVP 02/10/21 16:00 02/10/21 16:01 DC 02/10/21 16:29 25 MG Metoclopramide HCl 10 mg ONCE ONCE IVP 02/10/21 16:00 02/10/21 16:01 DC 02/10/21 16:30 10 MG Vital Signs/I&O 02/10/21 02/10/21 15:40 17:08 Temp 36.6 Pulse 84 87 Resp 18 18 B/P (MAP) 142/86 (104) 159/76 Pulse Ox 100 99 O2 Delivery Room Air Departure Impression Primary Impression: Chronic abdominal pain Disposition: HOME, SELF-CARE Condition: Stable Departure-Patient Inst. Decision time for Depature: 16:39 Referrals: CARMEN GIBBS MD (PCP/Family) Primary Care Physician Patient Instructions: CHRONIC PAIN GEORGES FINN APRN Feb 10, 2021 16:00
[2021-02-10 16:26] LABS: BASOPHILS % (AUTO) 1 % (0-10); EOSINOPHILS # (AUTO) 0.2 10^3/uL (0.0-0.3); EOSINOPHILS % (AUTO) 3 % (0-10); HEMATOCRIT 41 % (35-52); HEMOGLOBIN 13.1 g/dL (11.5-16.0); LYMPHOCYTES # (AUTO) 2.5 10^3/uL (1.0-4.0); LYMPHOCYTES % (AUTO) 32 % (12-44); MEAN CORPUSCULAR HEMOGLOBIN 27 pg (25-34); MEAN CORPUSCULAR HGB CONC 32 g/dL (32-36); MEAN CORPUSCULAR VOLUME 84 fL (80-99); MEAN PLATELET VOLUME 9.6 fL (9.0-12.2); MONOCYTES # (AUTO) 0.4 10^3/uL (0.0-1.0); MONOCYTES % (AUTO) 5 % (0-12); NEUTROPHILS # (AUTO) 4.7 10^3/uL (1.8-7.8); NEUTROPHILS % (AUTO) 60 % (42-75); PLATELET COUNT 272 10^3/uL (130-400); WHITE BLOOD COUNT 7.9 10^3/uL (4.3-11.0)
[2021-02-10 16:44] LABS: POTASSIUM 3.7 MMOL/L (3.6-5.0)
[2021-02-10 16:46] LABS: CALCIUM 10.1 MG/DL (8.5-10.1)
[2021-02-10 16:50] LABS: CREATININE SERUM 0.89 MG/DL (0.60-1.30)
[2021-02-10 17:08] VITALS: BP 159/76
== END 2021-02-10 17:08 | disposition home or self-care (01) ==
LOC: EDUNIT# 15:32 → ER 15:35
DX: G89.29 Other chronic pain (principal); R10.9 Unspecified abdominal pain; R11.0 Nausea; I10 Essential (primary) hypertension; F41.9 Anxiety disorder, unspecified; F32.9 Major depressive disorder, single episode, unspecified; K21.9 Gastro-esophageal reflux disease without esophagitis; G43.909 Migraine, unspecified, not intractable, without status migrainosus; J45.909 Unspecified asthma, uncomplicated; Z88.5 Allergy status to narcotic agent; Z90.49 Acquired absence of other specified parts of digestive tract; Z90.710 Acquired absence of both cervix and uterus; Z90.5 Acquired absence of kidney; Z79.899 Other long term (current) drug therapy; Z85.528 Personal history of other malignant neoplasm of kidney
CPT/HCPCS: 36415; 80048; 83690; 85025

== ENCOUNTER 2021-02-28 08:11 | Emergency (ER) | payer MEDICARE, MEDICAID ==
[~2021-02-28] VITALS: Ht 160 cm; Wt 120.0 kg
[2021-02-28 08:21] VITALS: BP 170/100
--- NOTE | 2021-02-28 08:50 | ED EENT ---
History of Present Illness General Chief Complaint: Ear Problems Stated Complaint: MEJIA Nursing Triage Note: AMB TO ED HOLDING R EAR REPORTS HAS HAD EAR PAIN SINCE SATURDAY WAS SEEN BY CHC ON SATURDAY STARED ON MEDS THAT ARE NOT HELPING. Source: patient Exam Limitations: no limitations (TERESSA MA) History of Present Illness Date Seen by Provider: Feb 28, 2021 Time Seen by Provider: 08:30 Initial Comments CC: Right Side Head Pain 35 yo female presents with right sided head and neck pain that began on Saturday. Patient states that this is different than her headaches in the past. Patient did go to the clinic yesterday, was seen and provided antibiotics but this has not helped. She describes her pain as a sharp radiating pain that travels to her scalp and down the right side of her neck. Patient states that this pain comes in waves. Patient states that she has nausea and vomiting, but this is due to her pancreatitis. Denies any recent trauma to the area Timing/Duration: intermittent, other (two days ago) Severity: moderate Location: facial, other (Right head and neck) Prearrival Treatment: over the counter meds (tylenol), prescription meds (z- pack), other (Hot and cold pack) Associated Symptoms: No change in hearing; facial pain/swelling (no swelling); No fever, No malaise, No nasal congestion/drainage, No sore throat, No tooth pain, No voice change, No other (denies changes in vision or photophobia) (TERESSA MA) Initial Comments Patient had 1 dose of azithromycin but her complaint today that brings her in is a headache and muscle tenderness at all the insertion sites on the right side of her face. Suspect she has a viral torticollis. Her left urinary treating does have some injection however I suspect this could be viral but I have encouraged her to finish out her antibiotics and will put her on a muscle relaxant. (MAKAYLA HAWKINS) Allergies and Home Medications Allergies Coded Allergies: fentanyl (Verified Allergy, Unknown, 10/16/18) meperidine (Verified Allergy, Unknown, 10/16/18) penicillin G (Verified Allergy, Unknown, 10/16/18) trimethobenzamide (Unverified Allergy, Unknown, 09/05/20) vancomycin (Verified Adverse Reaction, Intermediate, severe itching, 5/11/20) Patient Home Medication List Home Medication List Reviewed: Yes (MAKAYLA HAWKINS) Acetaminophen (Tylenol Extra Strength) 500 Mg Tablet, 1,000 MG PO Q8H PRN for PAIN-MILD (1-4), (Reported) Entered as Reported by: EMILIO SHEPPARD on 10/26/19 0812 Atorvastatin Calcium (Atorvastatin Calcium) 20 Mg Tablet, 20 MG PO HS, (Reported) Entered as Reported by: LEX HOSKINS on 12/07/20 0916 Diphenhydramine HCl (Benadryl) 25 Mg Capsule, 25 MG PO HS PRN for SLEEP, (Reported) Entered as Reported by: EMILIO SHEPPARD on 10/26/19 08 Hydrocodone/Acetaminophen (Hydrocodone-Acetamin 5-325 mg) 1 Each Tablet, 2 EACH PO Q6H PRN for PAIN-MILD (1-4), (Reported) Entered as Reported by: EMILIO SHEPPARD on 10/26/19811 Lipase/Protease/Amylase (Creon Dr 24,000 Units Capsule) 1 Each Capsule., 2 CAP PO TIDWM, (Reported) Entered as Reported by: LEX HOSKINS on 12/07/20 09 Multivitamin (Multiple Vitamins) 1 Each Tablet, 1 EACH PO DAILY, (Reported) Entered as Reported by: CATHERINE BRENNER on 09/07/19 1404 Nitrofurantoin Monohyd/M-Cryst (Macrobid 100 mg Capsule) 100 Mg Capsule, 1 TAB PO BID Prescribed by: MAKAYLA HAWKINS on 01/01/21 8563 Omeprazole (Omeprazole) 40 Mg Capsule., 40 MG PO BID, (Reported) Entered as Reported by: LEX HOSKINS on 12/07/20 0916 Ondansetron (Ondansetron Odt) 8 Mg Tab.rapdis, 8 MG PO Q8H PRN for NAUSEA/VOMITING, (Reported) Entered as Reported by: EMILIO SHEPPARD on 10/26/19 0812 Promethazine HCl (Promethazine Tablet) 25 Mg Tablet, 25 MG PO Q6H PRN for NAUSEA/VOMITING, (Reported) Entered as Reported by: LEX HOSKINS on 12/07/20 0916 Ropinirole HCl (Ropinirole HCl) 4 Mg Tablet, 4 MG PO HS, (Reported) Entered as Reported by: LEX HOSKINS on 06/28/17 1010 Sertraline HCl (Sertraline HCl) 100 Mg Tablet, 100 MG PO HS, (Reported) Entered as Reported by: LEX HOSKNIS on 12/07/20 0912 Sitagliptin Phos/Metformin HCl (Janumet Xr 50-1,000 mg Tablet) 1 Each Tbmp.24hr, 2 TAB-CAP PO DAILY@1900, (Reported) Entered as Reported by: LEX HOSKINS on 12/07/20 0916 Review of Systems Review of Systems Constitutional: see HPI; No chills; dizziness (minimal); No fever, No malaise Eyes: See HPI; Denies Blurred Vision, Denies Pain, Denies Photophobia Ears: See HPI; Denies Tinnitus Nose: denies clear discharge, denies previous injury Mouth: see HPI; denies pain, denies swelling Throat: see HPI; denies pain, denies swelling Musculoskeletal: neck pain (right sided) Neurological: Headache (TERESSA MA) Past Djiexio-Nvilwd-Klkhgp Hx Patient Social History Tobacco Use?: No Substance use?: No Pt feels they are or have been: No (TERESSA MA) Immunizations Up To Date Tetanus Booster (TDap): Less than 5yrs PED Vaccines UTD: No First/Initial COVID19 Vaccinat: no Second COVID19 Vaccination Alvaro: no (TERESSA MA) Seasonal Allergies Seasonal Allergies: No (TERESSA MA) Past Medical History Surgeries: Yes (hernia repair x2, knee scopes) Adenoidectomy, Appendectomy, Gallbladder, 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, Nephrectomy, Orthopedic, Tonsillectomy Respiratory: Yes Asthma Currently Using CPAP: No Currently Using BIPAP: No Cardiac: No Hypertension Neurological: Yes Headaches /Migraines 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: Yes (HX ENDOMETRIOSIS ) 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: 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 [employer] W[employer]DER History: 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 Sexually Transmitted Disease: No HIV/AIDS: No Genitourinary: Yes UTI-Chronic Gastrointestinal: Yes (OBESITY) Abdominal Hernia, Gastroesophageal Reflux, Liver Disease/Jaundice, Obstructive Bowel, Pancreatitis, Polyps Musculoskeletal: Yes (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) Chronic Back Pain Endocrine: No (pancrease not working) HEENT: No Loss of Vision: Denies Hearing Impairment: Denies Cancer: Yes Kidney Did You Recieve Any Treatments: Yes What Type of Treatment Did You: Surgical Intervention Psychosocial: Yes Anxiety, Depression Integumentary: No Herpes Blood Disorders: No Adverse Reaction/Blood Tranf: No (N/A) (TERESSA MA) Family Medical History Cardiovascular disease 19 FATHER Completed stroke 19 FATHER Diabetes mellitus 19 FATHER Hypercholesterolemia 19 FATHER 19 MOTHER Hypertension 19 FATHER 19 MOTHER Neoplasm 19 MOTHER Psychosocial problem 19 FATHER 19 MOTHER No Pertinent Family Hx, Cancer, Diabetes, Hypertension PSH: -RIGHT KNEE SCOPE X 5 -LEFT KNEE SCOPE X 2 -TONSILLECTOMY / ADENOIDECTOMY -APPENDECTOMY -CHOLECYSTECTOMY -NASAL FRACTURE REPAIR -COCCYX REMOVAL -LEFT NEPHRECTOMY FOR MALIGNANCY -LEFT MID ABDOMEN INCISIONAL HERNIA REPAIR -DRAINAGE OF ABDOMINAL WALL ABSCESS -MULTIPLE EGD'S AND COLONOSCOPIES--LAST ONE DONE HERE 10/26/19 -HYSTERECTOMY / BILATERAL SALPINGO-OOPHORECTOMY 2007 -06/23/20--RIGHT CHEST WALL/SHOULDER INJECTION FOR THORACIC OUTLET SYNDROME--DONE IN (TERESSA MA Self [employer] [facility]) Physical Exam Vital Signs Vital Signs - First Documented 02/28/21 08:21 Temp 36.8 Pulse 88 Resp 18 B/P (MAP) 170/100 (123) Pulse Ox 96 O2 Delivery Room Air (MAKAYLA HAWKINS) Height, Weight, BMI Height: 5'3.00" Weight: 246lbs. 0oz. 111.111113gy; 46.00 BMI Method:Stated General Appearance: WD/WN, no apparent distress Eyes: bilateral eye normal inspection, bilateral eye PERRL Ears: right ear erythema (mild erythema of the right external auditory canal); left ear canal normal; bilateral ear auricle normal, bilateral ear TM normal Mouth/Throat: normal mouth inspection, pharynx normal; No dental tenderness, No mandibular swelling Neck: supple, normal inspection, limited range of motion (on left rotation due to pain), tender lateral (at the origin of the SCM. Palpation appeared to reproduce her symptoms) Cardiovascular: normal peripheral pulses (radial pulses bilaterally), regular rate, rhythm, no murmur Respiratory: chest non-tender, lungs clear, normal breath sounds, no respiratory distress, no accessory muscle use Neurologic/Psychiatric: alert, normal mood/affect, oriented x 3 Skin: normal color, warm/dry (TERESSA MA) Progress/Results/Core Measures Results/Orders Vital Signs/I&O 02/28/21 08:21 Temp 36.8 Pulse 88 Resp 18 B/P (MAP) 170/100 (123) Pulse Ox 96 O2 Delivery Room Air (MAKAYLA HAWKINS) Blood Pressure Mean: 123 Progress Progress Note : Time: 09:39 Progress Note I attest that I saw this patient alongside the medical student and agree with his documented history, physical exam and review of systems except as otherwise noted. Norflex (MAKAYLA HAWKINS) Departure Impression Primary Impression: Otitis media, left Qualified Codes: H65.02 - Acute serous otitis media, left ear Additional Impression: Right torticollis Disposition: HOME, SELF-CARE Condition: Stable Departure-Patient Inst. Decision time for Depature: 09:41 (MAKAYLA HAWKINS) Referrals: CARMEN GIBBS MD (PCP/Family) Primary Care Physician Patient Instructions: Torticollis (DC) Add. Discharge Instructions: Drink plenty of fluids. Tylenol 1000 mg every 8 hours necessary for pain. Topical creams especially with capsaicin oil. Heat applied directly to the face can be helpful for the muscle pain. Cyclobenzaprine/Flexeril 1 tablet every 8 hours as necessary for muscle spasms in the neck and face. All discharge instructions reviewed with patient and/or family. Voiced understanding. Scripts Cyclobenzaprine HCl (Cyclobenzaprine HCl) 10 Mg Tablet 10 MG PO Q8H PRN for SPASMS, #20 TAB 0 Refills Prov: MAKAYLA HAWKINS 02/28/21 TERESSA MA MED STUDEN Feb 28, 2021 08:49 MAKAYLA HAWKINS Feb 28, 2021 09:42
[2021-02-28] MEDS ORDERED: CYCL10TA9 PO (09:42)
[2021-02-28] MEDS ORDERED: ORPHENADRINE 60 MG/2 ML (NORFLEX) AMP (ED ONLY) IM ONE (09:45)
== END 2021-02-28 10:01 | disposition home or self-care (01) ==
LOC: EDUNIT# 08:11 → ER 08:12
DX: M43.6 Torticollis (principal); H66.92 Otitis media, unspecified, left ear; J45.909 Unspecified asthma, uncomplicated; K21.9 Gastro-esophageal reflux disease without esophagitis; F41.9 Anxiety disorder, unspecified; F32.9 Major depressive disorder, single episode, unspecified; G89.29 Other chronic pain; M54.9 Dorsalgia, unspecified; E66.9 Obesity, unspecified; Z79.891 Long term (current) use of opiate analgesic; Z79.899 Other long term (current) drug therapy
CPT/HCPCS: 99284

== ENCOUNTER → 2021-03-02 | Outpatient (CLI) | payer MEDICARE, MEDICAID ==
[~2021-03-02] MED LIST changes: +IOHEXOL 300 MG/ML 50 ML (OMNIPAQUE 300) VIAL IV ONE
--- NOTE | 2021-03-03 09:44 | Diagnostic Imaging Report ---
INDICATION: Power port access difficulty. The patient was brought to the fluoroscopy suite, placed on the table in the supine position. The left chest wall port was accessed. No blood could be aspirated. It was determined that the port sits somewhat deep in the soft tissues of the left upper chest. The needle tip could not reach the PowerPort, likely explaining the inability to access at the [facility]. A total of 84 seconds of fluoroscopy time was utilized. IMPRESSION: Unsuccessful access of a left chest wall port due to the deep nature of the port. The port would either need to be repositioned more superficial or longer needles would be needed to access the report. Dictated by: Dictated on workstation # [id number]
== END ==
LOC: RAD 14:03
PROVIDERS: ATTEND Surgery
DX: T82.598A Other mechanical complication of other cardiac and vascular devices and implants, initial encounter (principal)
CPT/HCPCS: 36598

== ENCOUNTER 2021-03-13 08:48 | Emergency (ER) | payer MEDICARE, MEDICAID ==
[~2021-03-13] VITALS: Ht 160 cm; Wt 118.0 kg
[~2021-03-13 08:48] MED LIST changes: -CLIN150C18 PO; +CLIN150C20 PO; -IOHEXOL 300 MG/ML 50 ML (OMNIPAQUE 300) VIAL IV ONE
[2021-03-13] MEDS ORDERED: morphine INJ 10 MG/ML 1ML (SYR OR VIAL) IVP STA (09:11)
[2021-03-13] MEDS ORDERED: LACTATED RINGERS 1,000 ML IV ONE (09:15)
[2021-03-13] MEDS ORDERED: ONDANSETRON 4 MG/2 ML (SDV) Z0FRAN IVP ONE (09:15)
[2021-03-13 09:25] LABS: BASOPHILS % (AUTO) 0 % (0-10); EOSINOPHILS # (AUTO) 0.2 10^3/uL (0.0-0.3); EOSINOPHILS % (AUTO) 3 % (0-10); HEMATOCRIT 42 % (35-52); HEMOGLOBIN 13.5 g/dL (11.5-16.0); LYMPHOCYTES # (AUTO) 2.4 10^3/uL (1.0-4.0); LYMPHOCYTES % (AUTO) 31 % (12-44); MEAN CORPUSCULAR HEMOGLOBIN 28 pg (25-34); MEAN CORPUSCULAR HGB CONC 33 g/dL (32-36); MEAN CORPUSCULAR VOLUME 85 fL (80-99); MEAN PLATELET VOLUME 9.5 fL (9.0-12.2); MONOCYTES # (AUTO) 0.3 10^3/uL (0.0-1.0); MONOCYTES % (AUTO) 4 % (0-12); NEUTROPHILS # (AUTO) 4.8 10^3/uL (1.8-7.8); NEUTROPHILS % (AUTO) 61 % (42-75); PLATELET COUNT 281 10^3/uL (130-400); WHITE BLOOD COUNT 7.8 10^3/uL (4.3-11.0)
[2021-03-13 09:25] LABS: BILIRUBIN,URINE NEGATIVE (NEGATIVE); CLARITY,URINE CLEAR; COLOR,URINE YELLOW; GLUCOSE, URINE (UA) NEGATIVE (NEGATIVE); KETONES,URINE NEGATIVE (NEGATIVE); LEUKOCYTE ESTERASE ,URINE NEGATIVE (NEGATIVE); NITRITE,URINE NEGATIVE (NEGATIVE); PROTEIN,URINE NEGATIVE (NEGATIVE)
[2021-03-13 09:35] LABS: BACTERIA,URINE TRACE /HPF; RBC,URINE RARE /HPF; WBC,URINE RARE /HPF
[2021-03-13 09:37] LABS: ALBUMIN 4.2 GM/DL (3.2-4.5); POTASSIUM 4.3 MMOL/L (3.6-5.0)
[2021-03-13 09:38] LABS: CALCIUM 9.8 MG/DL (8.5-10.1)
[2021-03-13 09:39] LABS: TOTAL PROTEIN 7.8 GM/DL (6.4-8.2)
[2021-03-13 09:41] LABS: BILIRUBIN,TOTAL 0.4 MG/DL (0.1-1.0)
[2021-03-13 09:43] LABS: CREATININE SERUM 0.82 MG/DL (0.60-1.30)
[2021-03-13] MEDS ORDERED: PROMETHAZINE INJ 25 MG/ML (PHENERGAN) AMP IVP ONE (10:00)
--- NOTE | 2021-03-13 10:02 | Diagnostic Imaging Report ---
INDICATION: Abdominal pain. TIME OF EXAM: 9:50 AM. FINDINGS: There are surgical clips in the right upper quadrant as well as the right lower quadrant. The bowel gas pattern is nonobstructed. No pathologic calcifications are seen. No definite free air is identified. IMPRESSION: No acute abnormality is detected. Dictated by: Dictated on workstation # [id number]
--- NOTE | 2021-03-13 10:59 | ED Abdominal Pain ---
General Chief Complaint: Abdominal/GI Problems Stated Complaint: ABD PAIN,N/V Nursing Triage Note: Pt ambulated to ED with report of R sided abd/flank pain that she rates 7/10 and describes as "stabbing" and nausea that began yesterday. Pt began vomiting last night. Pt reports she attempted to take finegren, but was unable to keep it down. Pt states she "lost count of how many times she's thrown up." Pt reports she has a follow up appt with her GI doctor on Saturday. Source of Information: Patient, Old Records Exam Limitations: No Limitations History of Present Illness Date Seen by Provider: Mar 13, 2021 Time Seen by Provider: 08:57 Initial Comments This 35-year-old woman presents to the emergency room with complaints of a stabbing pain in the right upper quadrant and nausea and vomiting that started last night. These are chronic issues for her that become exacerbated from time to time. She does have a history of intermittent pancreatitis and chronic abdominal pain. She has had problems with abdominal mesh in the past. 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 She has tried Zofran and Phenergan at home that did not completely resolve her symptoms. She denies any fever. No changes in her urine. She is status post left nephrectomy due to renal cell carcinoma. Allergies and Home Medications Allergies Coded Allergies: fentanyl (Verified Allergy, Unknown, 10/16/18) meperidine (Verified Allergy, Unknown, 10/16/18) penicillin G (Verified Allergy, Unknown, 10/16/18) trimethobenzamide (Unverified Allergy, Unknown, 09/05/20) vancomycin (Verified Adverse Reaction, Intermediate, severe itching, 10/26/19) Patient Home Medication List Home Medication List Reviewed: Yes Acetaminophen (Tylenol Extra Strength) 500 Mg Tablet, 1,000 MG PO Q8H PRN for PAIN-MILD (1-4), (Reported) Entered as Reported by: EMILIO SHEPPARD on 10/26/19 0812 Atorvastatin Calcium (Atorvastatin Calcium) 20 Mg Tablet, 20 MG PO HS, (Reported) Entered as Reported by: LEX HOSKINS on 12/07/20 0916 Cyclobenzaprine HCl (Cyclobenzaprine HCl) 10 Mg Tablet, 10 MG PO Q8H PRN for SPASMS Prescribed by: MAKAYLA HAWKINS on 02/28/21 0942 Diphenhydramine HCl (Benadryl) 25 Mg Capsule, 25 MG PO HS PRN for SLEEP, (Repo rted) Entered as Reported by: EMILIO SHEPPARD on 10/26/19 0812 Hydrocodone/Acetaminophen (Hydrocodone-Acetamin 5-325 mg) 1 Each Tablet, 2 EACH PO Q6H PRN for PAIN-MILD (1-4), (Reported) Entered as Reported by: EMILIO SHEPPARD on 10/26/19 0812 Lipase/Protease/Amylase (Creon Dr 24,000 Units Capsule) 1 Each Capsule.dr, 2 CAP PO TIDWM, (Reported) Entered as Reported by: LEX HOSKINS on 12/07/20 0916 Multivitamin (Multiple Vitamins) 1 Each Tablet, 1 EACH PO DAILY, (Reported) Entered as Reported by: CATHERINE BRENNER on 09/07/19 1404 Nitrofurantoin Monohyd/M-Cryst (Macrobid 100 mg Capsule) 100 Mg Capsule, 1 TAB PO BID Prescribed by: MAKAYLA HAWKINS on 01/01/21 2343 Omeprazole (Omeprazole) 40 Mg Capsule.dr, 40 MG PO BID, (Reported) Entered as Reported by: LEX HOSKINS on 12/07/20 0916 Ondansetron (Ondansetron Odt) 8 Mg Tab.rapdis, 8 MG PO Q8H PRN for NAUSEA/VOMITING, (Reported) Entered as Reported by: EMILIO SHEPPARD on 10/26/19 0812 Promethazine HCl (Promethazine Tablet) 25 Mg Tablet, 25 MG PO Q6H PRN for NAUSEA/VOMITING, (Reported) Entered as Reported by: LEX HOSKINS on 12/07/20 0916 Ropinirole HCl (Ropinirole HCl) 4 Mg Tablet, 4 MG PO HS, (Reported) Entered as Reported by: LEX HOSKINS on 06/28/17 1010 Sertraline HCl (Sertraline HCl) 100 Mg Tablet, 100 MG PO HS, (Reported) Entered as Reported by: LEX HOSKINS on 12/07/20 0912 Sitagliptin Phos/Metformin HCl (Janumet Xr 50-1,000 mg Tablet) 1 Each Tbmp.24hr, 2 TAB-CAP PO DAILY@1900, (Reported) Entered as Reported by: LEX HOSKINS on 12/07/20 0916 Review of Systems Review of Systems Constitutional: no symptoms reported EENTM: No Symptoms Reported Respiratory: No Symptoms Reported Cardiovascular: No Symptoms Reported Gastrointestinal: See HPI Genitourinary: See HPI Musculoskeletal: no symptoms reported Skin: no symptoms reported Psychiatric/Neurological: No Symptoms Reported Endocrine: No Symptoms Reported Past Jectwuf-Nbiwpn-Vypdfd Hx Patient Social History Tobacco Use?: No Use of E-Cig and/or Vaping dev: No Substance use?: No Alcohol Use?: No Pt feels they are or have been: No Immunizations Up To Date Tetanus Booster (TDap): Less than 5yrs PED Vaccines UTD: No First/Initial COVID19 Vaccinat: no Second COVID19 Vaccination Alvaro: no Seasonal Allergies Seasonal Allergies: No Past Medical History Surgeries: Yes (hernia repair x2, knee scopes) Adenoidectomy, Appendectomy, Gallbladder, 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, Nephrectomy (Left), Orthopedic, Tonsillectomy Respiratory: Yes Asthma Currently Using CPAP: No Currently Using BIPAP: No Cardiac: Yes Hypertension Neurological: Yes Headaches /Migraines 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: Yes (HX ENDOMETRIOSIS ) 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: 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 Sexually Transmitted Disease: No HIV/AIDS: No Genitourinary: Yes UTI-Chronic Gastrointestinal: Yes (OBESITY) Abdominal Hernia, Gastroesophageal Reflux, Liver Disease/Jaundice, Obstructive Bowel, Pancreatitis, Polyps Musculoskeletal: Yes (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) Chronic Back Pain Endocrine: No (pancrease not working) HEENT: No Loss of Vision: Denies Hearing Impairment: Denies Cancer: Yes Kidney (Left renal cell carcinoma) Did You Recieve Any Treatments: Yes What Type of Treatment Did You: Surgical Intervention Psychosocial: Yes Anxiety, Depression Integumentary: No Herpes Blood Disorders: No Adverse Reaction/Blood Tranf: No (N/A) Family Medical History Cardiovascular disease 19 FATHER Completed stroke 19 FATHER Diabetes mellitus 19 FATHER Hypercholesterolemia 19 FATHER 19 MOTHER Hypertension 19 FATHER 19 MOTHER Neoplasm 19 MOTHER Psychosocial problem 19 FATHER 19 MOTHER No Pertinent Family Hx, Cancer, Diabetes, Hypertension PSH: -RIGHT KNEE SCOPE X 5 -LEFT KNEE SCOPE X 2 -TONSILLECTOMY / ADENOIDECTOMY -APPENDECTOMY -CHOLECYSTECTOMY -NASAL FRACTURE REPAIR -COCCYX REMOVAL -LEFT NEPHRECTOMY FOR MALIGNANCY -LEFT MID ABDOMEN INCISIONAL HERNIA REPAIR -DRAINAGE OF ABDOMINAL WALL ABSCESS -MULTIPLE EGD'S AND COLONOSCOPIES--LAST ONE DONE HERE 10/26/19 -HYSTERECTOMY / BILATERAL SALPINGO-OOPHORECTOMY 2007 -06/23/20--RIGHT CHEST WALL/SHOULDER INJECTION FOR THORACIC OUTLET SYNDROME--DONE IN Physical Exam Vital Signs Vital Signs - First Documented 03/13/21 09:03 Temp 35.8 Pulse 89 Resp 18 B/P (MAP) 159/100 (119) Pulse Ox 98 O2 Delivery Room Air Capillary Refill : Less Than 3 Seconds Height/Weight/BMI Height: 5'3.00" Weight: 246lbs. 0oz. 111.422935cy; 46.00 BMI Method:Stated General Appearance: WD/WN, mild distress, obese HEENT: PERRL/EOMI, normal ENT inspection, other (Oropharynx dry) Neck: normal inspection Respiratory: lungs clear, normal breath sounds, no respiratory distress Cardiovascular: regular rate, rhythm, no edema, no murmur Gastrointestinal: normal bowel sounds, soft; No distended; tenderness (Right upper quadrant) Extremities: normal inspection, no pedal edema Neurologic/Psychiatric: medical scientific officer II-XII nml as tested, no motor/sensory deficits, alert, normal mood/affect, oriented x 3 Skin: normal color, warm/dry Progress/Results/Core Measures Results/Orders Lab Results Laboratory Tests Test 03/13/21 08:56 03/13/21 09:09 Range/Units Urine Color YELLOW Urine Clarity CLEAR Urine pH 6.0 5-9 Urine Specific [place] >=1.030 1.016-1.022 Urine Protein NEGATIVE NEGATIVE Urine Glucose (UA) NEGATIVE NEGATIVE Urine Ketones NEGATIVE NEGATIVE Urine Nitrite NEGATIVE NEGATIVE Urine Bilirubin NEGATIVE NEGATIVE Urine Urobilinogen 0.2 < = 1.0 MG/DL Urine Leukocyte Esterase NEGATIVE NEGATIVE Urine RBC (Auto) NEGATIVE NEGATIVE Urine RBC RARE /HPF Urine WBC RARE /HPF Urine Squamous Epithelial Cells 10-25 H /HPF Urine Crystals NONE /LPF Urine Bacteria TRACE /HPF Urine Casts NONE /LPF Urine Mucus MODERATE H /LPF Urine Culture Indicated NO White Blood Count 7.8 4.3-11.0 10^3/uL Red Blood Count 4.91 3.80-5.11 10^6/uL Hemoglobin 13.5 11.5-16.0 g/dL Hematocrit 42 35-52 % Mean Corpuscular Volume 85 80-99 fL Mean Corpuscular Hemoglobin 28 25-34 pg Mean Corpuscular Hemoglobin Concent 33 32-36 g/dL Red Cell Distribution Width 13.7 10.0-14.5 % Platelet Count 281 130-400 10^3/uL Mean Platelet Volume 9.5 9.0-12.2 fL Immature Granulocyte % (Auto) 1 % Neutrophils (%) (Auto) 61 42-75 % Lymphocytes (%) (Auto) 31 12-44 % Monocytes (%) (Auto) 4 0-12 % Eosinophils (%) (Auto) 3 0-10 % Basophils (%) (Auto) 0 0-10 % Neutrophils # (Auto) 4.8 1.8-7.8 10^3/uL Lymphocytes # (Auto) 2.4 1.0-4.0 10^3/uL Monocytes # (Auto) 0.3 0.0-1.0 10^3/uL Eosinophils # (Auto) 0.2 0.0-0.3 10^3/uL Basophils # (Auto) 0.0 0.0-0.1 10^3/uL Immature Granulocyte # (Auto) 0.1 0.0-0.1 10^3/uL Sodium Level 140 135-145 MMOL/L Potassium Level 4.3 3.6-5.0 MMOL/L Chloride Level 104 98-107 MMOL/L Carbon Dioxide Level 22 21-32 MMOL/L Anion Gap 14 5-14 MMOL/L Blood Urea Nitrogen 13 7-18 MG/DL Creatinine 0.82 0.60-1.30 MG/DL Estimat Glomerular Filtration Rate 79 BUN/Creatinine Ratio 16 Glucose Level 165 H 70-105 MG/DL Calcium Level 9.8 8.5-10.1 MG/DL Corrected Calcium 9.6 8.5-10.1 MG/DL Total Bilirubin 0.4 0.1-1.0 MG/DL Aspartate Amino Transf (AST/SGOT) 54 H 5-34 U/L Alanine Aminotransferase (ALT/SGPT) 60 H 0-55 U/L Alkaline Phosphatase 87 40-136 U/L C-Reactive Protein High Sensitivity 1.00 H 0.00-0.50 MG/DL Total Protein 7.8 6.4-8.2 GM/DL Albumin 4.2 3.2-4.5 GM/DL Lipase 160 H 8-78 U/L My Orders Orders - IZABELA RENDON MD Cbc With Automated Diff (03/13/21 09:00) Comprehensive Metabolic Panel (03/13/21 09:00) Hs C Reactive Protein (03/13/21 09:00) Lipase (03/13/21 09:00) Ua Culture If Indicated (03/13/21 09:00) Implanted Port: Access (03/13/21 09:00) Ondansetron Injection (Zofran Injectio (03/13/21 09:15) Morphine Injection (Morphine Injection (03/13/21 09:11) Ed Iv/Invasive Line Start (03/13/21 09:11) Lactated Ringers (Lr 1000 Ml Iv Solution (03/13/21 09:15) Abdomen, Flat & Upright/Decub (03/13/21 09:13) Promethazine Injection (Phenergan Injec (03/13/21 10:00) Famotidine Injection (Pepcid Injection) (03/13/21 11:15) Metoclopramide Injection (Reglan Injecti (03/13/21 12:00) Diphenhydramine Injection (Benadryl Inje (03/13/21 12:00) Medications Given in ED Current Medications Medications Dose Ordered Sig/Neal Route Start Time Stop Time Status Last Admin Dose Admin Diphenhydramine HCl 12.5 mg ONCE ONCE IVP 03/13/21 12:00 03/13/21 12:01 DC 03/13/21 12:06 12.5 MG Famotidine 20 mg ONCE ONCE IVP 03/13/21 11:15 03/13/21 11:16 DC 03/13/21 11:21 20 MG Lactated Ringer's 1,000 ml @ 0 mls/hr Q0M ONCE IV 03/13/21 09:15 03/13/21 09:16 DC 03/13/21 09:21 0 MLS/HR Metoclopramide HCl 5 mg ONCE ONCE IVP 03/13/21 12:00 03/13/21 12:01 DC 03/13/21 12:07 5 MG Ondansetron HCl 8 mg ONCE ONCE IVP 03/13/21 09:15 03/13/21 09:16 DC 03/13/21 09:22 8 MG Promethazine HCl 25 mg ONCE ONCE IVP 03/13/21 10:00 03/13/21 10:01 DC 03/13/21 10:05 25 MG Vital Signs/I&O 03/13/21 09:03 Temp 35.8 Pulse 89 Resp 18 B/P (MAP) 159/100 (119) Pulse Ox 98 O2 Delivery Room Air Blood Pressure Mean: 119 Progress Progress Note #1: Time: 11:48 Progress Note Labs are relatively unremarkable. She has a mild elevation in lipase which is not uncommon for her and tends to represent more of a chronic state then an acute change. She was treated with Zofran, Phenergan, and morphine. These therapies are usually effective for her, and she is surprised that she does not feel better. She now complains of a gaggy sensation in her throat. Exam of the oropharynx is unremarkable. Her mouth and throat do appear very dry. Pepcid was additionally given. I am now having her try to sip on some water as her dry throat may be causing this sensation of gagging. We will reassess in a few minutes. KUB and upright x-rays were unremarkable. Progress Note #2: Time: 12:21 Progress Note Patient did not tolerate sips of water and regurgitated. We will try Reglan and Benadryl as this was successful on a prior visit. Progress Note #3: Time: 13:02 Progress Note Patient finally had relief of nausea, vomiting, and the gagging feeling in her throat after receiving Benadryl and Reglan. She would like a prescription to use at home if she has refractory nausea or vomiting. Diagnostic Imaging Diagonstic Imaging: Xray Plain Films/CT/US/NM/MRI: abdomen, pelvis Comments KUB and upright x-rays viewed by me and report reviewed. See report below: NAME: JAYLYN DELGADO [facility] REC#: [id number] PT STATUS: REG ER : 1985 PHYSICIAN: IZABELA RENDON MD ADMIT DATE: 03/13/21/ER Draft Date of Exam:03/13/21 ABDOMEN, FLAT & UPRIGHT/DECUB INDICATION: Abdominal pain. TIME OF EXAM: 9:50 AM. FINDINGS: There are surgical clips in the right upper quadrant as well as the right lower quadrant. The bowel gas pattern is nonobstructed. No pathologic calcifications are seen. No definite free air is identified. IMPRESSION: No acute abnormality is detected. Dictated on workstation # [id number] Dict: 03/13/21958 Trans: 03/13/21 1001 [id number] Interpreted by: RAZA GOLD MD Departure Impression Primary Impression: Nausea and vomiting Qualified Codes: R11.2 - Nausea with vomiting, unspecified Additional Impression: Right upper quadrant pain Disposition: 01 HOME, SELF-CARE Condition: Improved Departure-Patient Inst. Decision time for Depature: 12:59 Referrals: CARMEN GIBBS MD (PCP/Family) Primary Care Physician Patient Instructions: Severe Abdominal Pain, Adult (DC) Add. Discharge Instructions: Start with a noncarbonated clear liquid diet for the next 24 hours. Gradually advance your diet with small quantities of bland food as tolerated. 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 If you have nausea and vomiting that is refractory to the other nausea medications you take, you may try Reglan (metoclopramide) as prescribed. Take with Benadryl (diphenhydramine) 25 mg to prevent the undesired muscle twitching. Call with questions or concerns. Return to the ER if you have worsening symptoms. All discharge instructions reviewed with patient and/or family. Voiced understanding. Scripts Metoclopramide HCl (Reglan) 5 Mg Tablet 5 MG PO Q6H PRN for NAUSEA/VOMITING-3RD LINE, #20 TAB Prov: IZABELA RENDON MD 03/13/21 Copy Copies To 1: CARMEN GIBBS MD, JOSHUA T MD Mar 13, 2021 10:59
[2021-03-13] MEDS ORDERED: FAMOTIDINE 20MG/2ML IV (PEPCID) IVP ONE (11:15)
[2021-03-13] MEDS ORDERED: diphenhydrAMINE 50 MG/ML INJ (BENADRYL) IVP ONE (12:00)
[2021-03-13] MEDS ORDERED: METOCLOPRAMIDE INJ 10 MG/2 ML (REGLAN) IVP ONE (12:00)
[2021-03-13] MEDS ORDERED: METO5TAB75 PO (13:01)
[2021-03-13 13:12] VITALS: BP 136/71
== END 2021-03-13 13:13 | disposition home or self-care (01) ==
LOC: EDUNIT# 08:48 → ER 08:49
DX: R10.11 Right upper quadrant pain (principal); R11.2 Nausea with vomiting, unspecified; R74.8 Abnormal levels of other serum enzymes; I10 Essential (primary) hypertension; J45.909 Unspecified asthma, uncomplicated; G89.29 Other chronic pain; M54.9 Dorsalgia, unspecified; F41.9 Anxiety disorder, unspecified; F32.9 Major depressive disorder, single episode, unspecified; K21.9 Gastro-esophageal reflux disease without esophagitis; E66.9 Obesity, unspecified; Z68.42 Body mass index [BMI] 45.0-49.9, adult; Z79.891 Long term (current) use of opiate analgesic; Z88.5 Allergy status to narcotic agent; Z79.899 Other long term (current) drug therapy
CPT/HCPCS: 36415; 74019; 80053; 81000; 83690; 85025; 86141

== ENCOUNTER 2021-03-15 05:44 | Outpatient (CLI) | payer MEDICARE, MEDICAID ==
[~2021-03-15] VITALS: Ht 160 cm; Wt 120.5 kg
== END 2021-03-15 09:56 ==
LOC: PREOP 05:44
PROVIDERS: ATTEND Surgery
DX: Z01.818 Encounter for other preprocedural examination (principal)

== ENCOUNTER 2021-03-17 08:19 | Day surgery (SDC) | payer MEDICARE, MEDICAID ==
[~2021-03-17] VITALS: Ht 160 cm; Wt 120.5 kg
[2021-03-17] VITALS (9 sets, daily range): BP systolic 108–132; BP diastolic 61–86
[~2021-03-17 08:19] MED LIST changes: +LACTATED RINGERS 1,000 ML IV PRN
[2021-03-17] MEDS ORDERED: LIDOCAINE/EPI 1%-1:100,000 (XYLOCAINE) 20ML ONE ×2 (09:00→10:31)
[2021-03-17] MEDS ORDERED: 0.9% SODIUM CHLORIDE PF INJ 20 ML VIAL ONE (09:00)
[2021-03-17] MEDS ORDERED: HEParin (CENTRAL IV FLUSH) 500 UNIT/5 ML SYR ONE (09:00)
--- NOTE | 2021-03-17 09:04 | Progress Note-Pre Operative ---
Pre-Operative Progress Note H&P Reviewed The H&P was reviewed, patient examined and no changes noted. Time Seen by Provider: 09:01 Date H&P Reviewed: Mar 17, 2021 Time H&P Reviewed: 09:01 Pre-Operative Diagnosis: port malfunction LINDSEY MARROQUIN DO Mar 17, 2021 09:04
[2021-03-17] MEDS ORDERED: MIDAZOLAM 2 MG/2 ML (VERSED) VIAL ONE ×3 (10:01→10:30)
[2021-03-17] MEDS ORDERED: PROPOFOL INJECTION 50 ML IV ONE (10:01)
[2021-03-17] MEDS ORDERED: KETAMINE SYRINGE 50 MG/5 ML SYRINGE ONE (10:08)
[2021-03-17] MEDS ORDERED: ONDANSETRON 4 MG/2 ML (SDV) Z0FRAN ONE (10:14)
[2021-03-17] MEDS ORDERED: CLINDAMYCIN 600 MG/50 ML IVPB 50 ML IV ONE (10:26)
--- NOTE | 2021-03-17 10:53 | Progress Note-Post Operative ---
Post-Operative Progess Note Surgeon (s)/Light Oil Operator (s) Surgeon LINDSEY MARROQUIN DO Light Oil Operator: ZEB Dickey Pre-Operative Diagnosis port malfunction Post-Operative Diagnosis same, flipped sideways Procedure & Operative Findings Date of Procedure 03/17/21 Procedure Performed/Findings Repositioning and flushing of port Anesthesia Type IV sedation by Anesthesia Estimated Blood Loss Estimated blood loss (mL): scant Specimens/Packing Specimens Removed none LINDSEY MARROQUIN DO Mar 17, 2021 10:53
--- NOTE | 2021-03-17 10:54 | Discharge Inst-Surgical ---
Discharge Inst-Surgical Depart Medication/Instructions New, Converted or Re-Newed RX: Other (use home meds) Patient Instructions Follow up Appt: Make appointment for 1 week. [phone] Instructions: No lifting greater than 20 pounds. No strenuous activity. May shower in 24 hours, no tub bath or soaking. Use incentive spirometer at home as directed. No Smoking Skin/Wound Care: May remove bandages in am. You need to leave the Dermabond on incision it will fall off on it's own. Symptoms to Report: Appetite Changes, Extremity Discoloration, Numbness/Tingling, Swelling Increased, Bleeding Excessive, Eyesight Changes, Pain Increased, Urine Color Change, Constipation(Persistent), Fever over 101 degree F, Pain/Pressure in chest, Urinating Difficulty, Cough Up/Vomit Blood, Heart Beat Irreg/Pounding, Pain/Pressure in jaw, Cramps in feet or legs, Lightheadedness, Pain/Pressure in shoulder, Diarrhea(Persistent), Memory Changes Suddenly, Questions/Concerns, Weight gain consecutive days, Dizziness/Fainting, Nausea/Vomiting, Shortness of Breath, Weight gain over 2 pounds If questions or concerns contact your physician Or seek help at emergency department. Activity Activity as Tolerated: Yes Activity Instructions: Avoid Stress to Incision Driving Instructions: You May Drive Diet Discharge Diet: No Restrictions Diet After 24 Hours: Clear Liquid if Nauseous If Any Problems/Questions/Issu: Contact Your Physician, Go to Emergency Room Skin/Wound Care Infection Signs and Symptoms: Increased Redness, Foul Odor of Wound, Increased Drainage, Skin Itchy or Has a Rash, Increased Swelling, Temperature Above 101 F Bathing Instructions: Shower Stitches/[place]/Dermabond Dis: LINDSEY Funes DO Mar 17, 2021 10:54
[2021-03-17] MEDS ORDERED: ONDANSETRON 4 MG/2 ML (SDV) Z0FRAN IVP PRN (11:00)
--- NOTE | 2021-03-17 12:01 | Anesthesia-General Post-Op ---
MAC Patient Condition Mental Status/LOC: Same as Preop Cardiovascular: Satisfactory Nausea/Vomiting: Absent Respiratory: Satisfactory Pain: Controlled Complications: Absent Post Op Complications Complications None Follow Up Care/Instructions Patient Instructions None needed. Anesthesiology Discharge Order Discharge Order Patient is doing well, no complaints, stable vital signs, no apparent adverse anesthesia problems. RIYA SANTOS DO Mar 17, 2021 12:01
--- NOTE | 2021-03-18 00:23 | OPERATIVE REPORT ---
DATE OF SERVICE: 03/17/2021 PREOPERATIVE DIAGNOSIS: Malfunctioning port. POSTOPERATIVE DIAGNOSIS: Malfunctioning port. PROCEDURE: Reposition of port. SURGEON: Deondre Roman DO MANAGER CHANNEL: Lencho Perry MS3. ANESTHESIA: IV sedation by anesthesiologist. BLOOD LOSS: Scant. SPECIMENS: None. FLUIDS: Per anesthesia. POSTOPERATIVE CONDITION: Stable. INDICATION FOR PROCEDURE: The patient is a 35-year-old female who had a Port-A-Cath placed and had attempted access to the port and was told it was too deep. FINDINGS: The patient had a port that is actually a little bit turned, it is actually straight up and down a set of flat and needed to be repositioned. PROCEDURE NOTE: After informed consent was obtained, the patient was brought to the operating room, placed on table in supine position. She was sterilely prepped and draped in normal fashion. Local lidocaine was used to infiltrate the skin under the previous incision and around in the regional block. We made an incision with #15 blade, carried down through the skin into subcutaneous tissue, then deepened down to subcutaneous tissue with Bovie electrocautery. Down to the port could feel the port, carefully dissected around it and then found that it was basically straight up and down a set of lying flat, somehow it had flipped up, still sutured on the medial side. At this point, then cut the suture off and resutured the port little bit higher up and then sutured medially a little bit higher up and then sutured laterally to hold it in a flat position. Also accessed the port. Suctioned out until we got good blood and then flushed very easily with about 30 mL of saline and then flushed with 3 mL of heparin. Once this was done, then it still laid nice and flat. Closed the skin with 4-0 undyed Monocryl 3 interrupted subcuticular stitches. Area was cleaned and dried. Dermabond placed, the patient was then transferred to recovery room in stable condition. Sponge, instrument and needle count correct at the end of the case. Job ID: [id number] DocumentID: [id number] Dictated Date: 03/17/2021 16:05:24 Analytic Manager Date: 03/18/2021 00:23:37 Dictated By: DEONDRE ROMAN DO
== END 2021-03-17 13:15 | disposition home or self-care (01) ==
LOC: SDC 08:19
PROVIDERS: ATTEND Surgery
DX: T82.598A Other mechanical complication of other cardiac and vascular devices and implants, initial encounter (principal); I87.2 Venous insufficiency (chronic) (peripheral); I10 Essential (primary) hypertension; J44.9 Chronic obstructive pulmonary disease, unspecified; G43.909 Migraine, unspecified, not intractable, without status migrainosus; F32.9 Major depressive disorder, single episode, unspecified; F41.9 Anxiety disorder, unspecified; E66.01 Morbid (severe) obesity due to excess calories; E11.9 Type 2 diabetes mellitus without complications; Z79.2 Long term (current) use of antibiotics; Z79.899 Other long term (current) drug therapy; Z79.891 Long term (current) use of opiate analgesic; Z68.42 Body mass index [BMI] 45.0-49.9, adult; Z79.84 Long term (current) use of oral hypoglycemic drugs
CPT/HCPCS: 82947; 84703; 87081

== ENCOUNTER 2021-03-19 11:58 | Emergency (ER) | payer MEDICARE, MEDICAID ==
[~2021-03-19] VITALS: Ht 157 cm; Wt 118.0 kg
[~2021-03-19 11:58] MED LIST changes: -LACTATED RINGERS 1,000 ML IV PRN; +SCOP1PAT10 TD; -SCOP1PAT11 TD
[2021-03-19] MEDS ORDERED: SULF1TAB38 PO (12:18)
--- NOTE | 2021-03-19 12:18 | ED Integumentary General ---
General Chief Complaint: Skin/Wound Problems Stated Complaint: PORT LEAKAGE/NAUSEA Source: patient Exam Limitations: no limitations History of Present Illness Date Seen by Provider: Mar 19, 2021 Time Seen by Provider: 12:01 Initial Comments Patient to the ER by private conveyance with chief complaint that she is status post port placement and repositioning Saturday, 2 days ago and having some drainage from the wound. She has wound adhesive in place and has gone through two dressings today. She is using 2 x 2 nonadherent gauze. She is not having any fevers chills nausea vomiting diarrhea or constipation. The port had to be repositioned because it was too deep and and could not be accessed. Dr. Marroquin was her general surgeon. She is not on any antibiotics. She has had itching and rash associated with the wound adhesive in the past but never blistering up or draining. Allergies and Home Medications Allergies Coded Allergies: fentanyl (Verified Allergy, Unknown, 10/16/18) meperidine (Verified Allergy, Unknown, 10/16/18) penicillin G (Verified Allergy, Unknown, 10/16/18) prochlorperazine (Verified Allergy, Unknown, 03/15/21) trimethobenzamide (Unverified Allergy, Unknown, 09/05/20) vancomycin (Verified Adverse Reaction, Intermediate, severe itching, 10/26/19) Patient Home Medication List Home Medication List Reviewed: Yes Acetaminophen (Tylenol Extra Strength) 500 Mg Tablet, 1,000 MG PO Q8H PRN for PAIN-MILD (1-4), (Reported) Entered as Reported by: EMILIO SHEPPARD on 10/26/19 0812 Atorvastatin Calcium (Atorvastatin Calcium) 20 Mg Tablet, 20 MG PO HS, (Reported) Entered as Reported by: LEX HOSKINS on 12/07/20 0916 Cyclobenzaprine HCl (Cyclobenzaprine HCl) 10 Mg Tablet, 10 MG PO Q8H PRN for SPASMS Prescribed by: MAKAYLA HAWKINS on 02/28/21 0942 Diphenhydramine HCl (Benadryl) 25 Mg Capsule, 25 MG PO HS PRN for SLEEP, (Reported) Entered as Reported by: EMILIO SHEPPARD on 10/26/19 0812 Hydrocodone/Acetaminophen (Hydrocodone-Acetamin 5-325 mg) 1 Each Tablet, 2 EACH PO Q6H PRN for PAIN-MILD (1-4), (Reported) Entered as Reported by: EMILIO SHEPPARD on 10/26/19 0812 Lipase/Protease/Amylase (Creon Dr 24,000 Units Capsule) 1 Each Capsule.dr, 2 CAP PO TIDWM, (Reported) Entered as Reported by: LEX HOSKINS on 12/07/20 0916 Metoclopramide HCl (Reglan) 5 Mg Tablet, 5 MG PO Q6H PRN for NAUSEA/VOMITING-3RD LINE Prescribed by: IZABELA MAC on 03/13/21 1301 Multivitamin (Multiple Vitamins) 1 Each Tablet, 1 EACH PO DAILY, (Reported) Entered as Reported by: CATHERINE BRENNER on 09/07/19 1404 Omeprazole (Omeprazole) 40 Mg Capsule.dr, 40 MG PO BID, (Reported) Entered as Reported by: LEX HOSKINS on 12/07/20 0916 Ondansetron (Ondansetron Odt) 8 Mg Tab.rapdis, 8 MG PO Q8H PRN for NAUSEA/VOMITING, (Reported) Entered as Reported by: EMILIO SHEPPARD on 10/26/19 0812 Promethazine HCl (Promethazine Tablet) 25 Mg Tablet, 25 MG PO Q6H PRN for NAUSEA/VOMITING, (Reported) Entered as Reported by: LEX HOSKINS on 12/07/20 0916 Ropinirole HCl (Ropinirole HCl) 4 Mg Tablet, 4 MG PO HS, (Reported) Entered as Reported by: LEX HOSKINS on 06/28/17 1010 Sertraline HCl (Sertraline HCl) 100 Mg Tablet, 100 MG PO HS, (Reported) Entered as Reported by: LEX HOSKINS on 12/07/20 0912 Sitagliptin Phos/Metformin HCl (Janumet Xr 50-1,000 mg Tablet) 1 Each Tbmp.24hr, 2 TAB-CAP PO DAILY@1900, (Reported) Entered as Reported by: LEX HOSKINS on 12/07/20 0916 Sulfamethoxazole/Trimethoprim (Bactrim Ds Tablet) 1 Each Tablet, 1 EACH PO BID Prescribed by: MAKAYLA HAWKINS on 03/19/21 1218 Discontinued Medications Nitrofurantoin Monohyd/M-Cryst (Macrobid 100 mg Capsule) 100 Mg Capsule, 1 TAB PO BID Discontinued Reason: No Longer Taking Prescribed by: MAKAYLA HAWKINS on 01/01/21 5841 Review of Systems Review of Systems Constitutional: No chills, No fever, No malaise EENTM: No ear discharge, No ear pain Respiratory: No cough, No short of breath Cardiovascular: No chest pain, No edema Gastrointestinal: No abdominal pain, No nausea, No vomiting Genitourinary: No discharge, No dysuria Musculoskeletal: No back pain, No joint pain Skin: see HPI All Other Systems Reviewed Negative Unless Noted: Yes Past Eahyjun-Etdilh-Jeluuy Hx Patient Social History Tobacco Use?: No Substance use?: No Alcohol Use?: No Pt feels they are or have been: No Immunizations Up To Date Tetanus Booster (TDap): Less than 5yrs PED Vaccines UTD: No First/Initial COVID19 Vaccinat: no Second COVID19 Vaccination Alvaro: no Seasonal Allergies Seasonal Allergies: No Past Medical History Surgeries: Yes (hernia repair x2, knee scopes) Adenoidectomy, Appendectomy, Gallbladder, 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, Nephrectomy, Orthopedic, Tonsillectomy Respiratory: Yes Asthma Currently Using CPAP: No Currently Using BIPAP: No Cardiac: Yes Hypertension Neurological: Yes Headaches /Migraines 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: Yes (HX ENDOMETRIOSIS ) 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: 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 Sexually Transmitted Disease: No HIV/AIDS: No Genitourinary: Yes UTI-Chronic Gastrointestinal: Yes (OBESITY) Abdominal Hernia, Gastroesophageal Reflux, Liver Disease/Jaundice, Obstructive Bowel, Pancreatitis, Polyps Musculoskeletal: Yes (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) Chronic Back Pain Endocrine: No (pancrease not working) HEENT: No Loss of Vision: Denies Hearing Impairment: Denies Cancer: Yes Kidney Did You Recieve Any Treatments: Yes What Type of Treatment Did You: Surgical Intervention Psychosocial: Yes Anxiety, Depression Integumentary: No Herpes Blood Disorders: No Adverse Reaction/Blood Tranf: No (N/A) Family Medical History Cardiovascular disease 19 FATHER Completed stroke 19 FATHER Diabetes mellitus 19 FATHER Hypercholesterolemia 19 FATHER 19 MOTHER Hypertension 19 FATHER 19 MOTHER Neoplasm 19 MOTHER Psychosocial problem 19 FATHER 19 MOTHER No Pertinent Family Hx, Cancer, Diabetes, Hypertension PSH: -RIGHT KNEE SCOPE X 5 -LEFT KNEE SCOPE X 2 -TONSILLECTOMY / ADENOIDECTOMY -APPENDECTOMY -CHOLECYSTECTOMY -NASAL FRACTURE REPAIR -COCCYX REMOVAL -LEFT NEPHRECTOMY FOR MALIGNANCY -LEFT MID ABDOMEN INCISIONAL HERNIA REPAIR -DRAINAGE OF ABDOMINAL WALL ABSCESS -MULTIPLE EGD'S AND COLONOSCOPIES--LAST ONE DONE HERE 10/26/19 -HYSTERECTOMY / BILATERAL SALPINGO-OOPHORECTOMY 2007 -06/23/20--RIGHT CHEST WALL/SHOULDER INJECTION FOR THORACIC OUTLET SYNDROME--DONE IN Physical Exam Vital Signs Vital Signs - First Documented 03/19/21 12:08 Temp 36.1 Pulse 86 Resp 18 B/P (MAP) 153/96 (115) Pulse Ox 94 O2 Delivery Room Air Capillary Refill : General Appearance: WD/WN, no apparent distress HEENT: PERRL/EOMI, pharynx normal Neck: full range of motion, normal inspection Cardiovascular: normal peripheral pulses, regular rate, rhythm Respiratory: no respiratory distress, no accessory muscle use Neurologic/Psychiatric: alert, oriented x 3 Skin: other (Left upper anterior chest wall has a recent placed surgical wound with blue/purple cyanoacrylate and associated small amounts of fluid filled, clear, vesicles which express a small amount of serous fluid on palpation. There is no induration or palpable fluctuance. No significant erythema or tenderness to palpation.) Progress/Results/Core Measures Results/Orders Vital Signs/I&O 03/19/21 12:08 Temp 36.1 Pulse 86 Resp 18 B/P (MAP) 153/96 (115) Pulse Ox 94 O2 Delivery Room Air Progress Progress Note : Time: 12:14 Progress Note Patient has clear fluid-filled blisters no evidence of erythema warmth indur ation or even a significant seroma. I suspect she is having a local skin reaction to the wound adhesive and not an infection. We are going to send her out with a prescription for Bactrim if she develops fever, redness and have her follow-up with Dr. Marroquin for reevaluation next week. Antihistamines. Departure Impression Primary Impression: Allergic contact dermatitis Qualified Codes: L23.1 - Allergic contact dermatitis due to adhesives Additional Impression: Wound drainage Disposition: 01 HOME, SELF-CARE Condition: Stable Departure-Patient Inst. Decision time for Depature: 12:15 Referrals: LINDSEY MARROQUIN BETHANY N MD (PCP/Family) Primary Care Physician Patient Instructions: Wound Care (DC), Allergic Reaction ED Add. Discharge Instructions: You have some blisters associated with the wound adhesive that are draining a clear fluid. There also could be a small seroma associated with the pocket that the surgeon creates to place the port in and it may be draining. At this time it does not appear to be infected. If you develop fevers, intractable vomiting or other worrisome symptoms then return to the ER. Otherwise if you develop redness, hardening, or warmth spreading out away from the wound more than a few inches then I would encourage you to call Dr. Marroquin and follow-up in the clinic. You may start the Bactrim twice a day if that occurs. If you start the Bactrim then you should also pickle processor probiotics and take these twice a day while you are on antibiotics. Just keep changing the dressing as often as necessary to catch the discharge. Use a clean, dry dressing each time to avoid infecting the wound. Clean with regular soap and water. Do not use alcohol, peroxide, iodine or other wound astringents as this will cause breakdown of the wound. Claritin or Zyrtec 10 mg a day as necessary for itching. Benadryl 1 to 2 tablets every 6 hours as necessary for breakthrough itching. All discharge instructions reviewed with patient and/or family. Voiced understanding. Scripts Sulfamethoxazole/Trimethoprim (Bactrim Ds Tablet) 1 Each Tablet 1 EACH PO BID for 7 Days, #14 TAB 0 Refills Prov: MAKAYLA HAWKINS 03/19/21 Copy Copies To 1: LINDSEY MARROQUIN DO MAKAYLA HAWKINS Mar 19, 2021 12:18
[2021-03-19 12:25] VITALS: BP 153/96
== END 2021-03-19 12:24 | disposition home or self-care (01) ==
LOC: EDUNIT# 11:58 → ER 12:00
DX: L23.1 Allergic contact dermatitis due to adhesives (principal); T81.89XA Other complications of procedures, not elsewhere classified, initial encounter; J45.909 Unspecified asthma, uncomplicated; I10 Essential (primary) hypertension; K21.9 Gastro-esophageal reflux disease without esophagitis; G89.29 Other chronic pain; M54.9 Dorsalgia, unspecified; F41.9 Anxiety disorder, unspecified; F32.9 Major depressive disorder, single episode, unspecified; Z79.891 Long term (current) use of opiate analgesic; Z79.899 Other long term (current) drug therapy
CPT/HCPCS: 99281

== ENCOUNTER 2021-03-23 16:11 | Emergency (ER) | payer MEDICARE, MEDICAID ==
[~2021-03-23] VITALS: Ht 160 cm; Wt 118.0 kg
[2021-03-23 16:13] VITALS: BP 135/88
--- NOTE | 2021-03-23 16:25 | ED GI ---
General Chief Complaint: Abdominal/GI Problems Stated Complaint: ABD PAIN,N/V Source of Information: Patient Exam Limitations: No Limitations History of Present Illness Date Seen by Provider: Mar 23, 2021 Time Seen by Provider: 16:23 Initial Comments To ER with chronic abdominal pain nausea and vomiting. This is no different than any other day. She alleges that she has not eaten in several days though she is not tachycardic or with dry mucous membranes. Timing/Duration: 1-2 Days Severity/Quality: Moderate Location: Epigastric Radiation: No Radiation Activities at Onset: None Allergies and Home Medications Allergies Coded Allergies: fentanyl (Verified Allergy, Unknown, 10/16/18) meperidine (Verified Allergy, Unknown, 10/16/18) penicillin G (Verified Allergy, Unknown, 10/16/18) prochlorperazine (Verified Allergy, Unknown, 03/15/21) trimethobenzamide (Unverified Allergy, Unknown, 09/05/20) vancomycin (Verified Adverse Reaction, Intermediate, severe itching, 10/26/19) Patient Home Medication List Home Medication List Reviewed: Yes Acetaminophen (Tylenol Extra Strength) 500 Mg Tablet, 1,000 MG PO Q8H PRN for PAIN-MILD (1-4), (Reported) Entered as Reported by: EMILIO SHEPPARD on 10/26/19 0812 Atorvastatin Calcium (Atorvastatin Calcium) 20 Mg Tablet, 20 MG PO HS, (Reported) Entered as Reported by: LXE HOSKINS on 12/07/20 0916 Cyclobenzaprine HCl (Cyclobenzaprine HCl) 10 Mg Tablet, 10 MG PO Q8H PRN for SPASMS Prescribed by: MAKAYLA HAWKINS on 02/28/21 0942 Diphenhydramine HCl (Benadryl) 25 Mg Capsule, 25 MG PO HS PRN for SLEEP, (Reported) Entered as Reported by: EMILIO SHEPPARD on 10/26/19 0812 Hydrocodone/Acetaminophen (Hydrocodone-Acetamin 5-325 mg) 1 Each Tablet, 2 EACH PO Q6H PRN for PAIN-MILD (1-4), (Reported) Entered as Reported by: EMILIO SHEPPARD on 10/26/19 0812 Lipase/Protease/Amylase (Creon Dr 24,000 Units Capsule) 1 Each Capsule., 2 CAP PO TIDWM, (Reported) Entered as Reported by: LEX HOSKINS on 12/07/20 0916 Metoclopramide HCl (Reglan) 5 Mg Tablet, 5 MG PO Q6H PRN for NAUSEA/VOMITING-3RD LINE Prescribed by: IZABELA MAC on 03/13/21 1301 Multivitamin (Multiple Vitamins) 1 Each Tablet, 1 EACH PO DAILY, (Reported) Entered as Reported by: CATHERINE BRENNER on 09/07/19 1404 Omeprazole (Omeprazole) 40 Mg Capsule.dr, 40 MG PO BID, (Reported) Entered as Reported by: LEX HOSKINS on 12/07/20 0916 Ondansetron (Ondansetron Odt) 8 Mg Tab.rapdis, 8 MG PO Q8H PRN for NAUSEA/VOMITING, (Reported) Entered as Reported by: EMILIO SHEPPARD on 10/26/19 0812 Promethazine HCl (Promethazine Tablet) 25 Mg Tablet, 25 MG PO Q6H PRN for NAUSEA/VOMITING, (Reported) Entered as Reported by: LEX HOSKINS on 12/07/20 0916 Ropinirole HCl (Ropinirole HCl) 4 Mg Tablet, 4 MG PO HS, (Reported) Entered as Reported by: LEX HOSKINS on 06/28/17 1010 Sertraline HCl (Sertraline HCl) 100 Mg Tablet, 100 MG PO HS, (Reported) Entered as Reported by: LEX HOSKINS on 12/07/20 0912 Sitagliptin Phos/Metformin HCl (Janumet Xr 50-1,000 mg Tablet) 1 Each Tbmp.24hr, 2 TAB-CAP PO DAILY@1900, (Reported) Entered as Reported by: LEX HOSKINS on 12/07/20 0916 Sulfamethoxazole/Trimethoprim (Bactrim Ds Tablet) 1 Each Tablet, 1 EACH PO BID Prescribed by: MAKAYLA HAWKINS on 03/19/21 1218 Review of Systems Review of Systems Constitutional: see HPI EENTM: No Symptoms Reported Respiratory: No Symptoms Reported Cardiovascular: No Symptoms Reported Gastrointestinal: See HPI, Abdominal Pain Genitourinary: No Symptoms Reported Musculoskeletal: no symptoms reported Skin: no symptoms reported Psychiatric/Neurological: No Symptoms Reported Endocrine: No Symptoms Reported Hematologic/Lymphatic: No Symptoms Reported Past Mjuarzq-Syzjjk-Gkglqb Hx Patient Social History Tobacco Use?: No Smoking Status: Never a Smoker Use of E-Cig and/or Vaping dev: No Substance use?: No Alcohol Use?: No Immunizations Up To Date Tetanus Booster (TDap): Less than 5yrs PED Vaccines UTD: No First/Initial COVID19 Vaccinat: no Second COVID19 Vaccination Alvaro: no Seasonal Allergies Seasonal Allergies: No Past Medical History Surgeries: Yes (hernia repair x2, knee scopes) Adenoidectomy, Appendectomy, Gallbladder, 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, Nephrectomy, Orthopedic, Tonsillectomy Respiratory: Yes Asthma Currently Using CPAP: No Currently Using BIPAP: No Cardiac: Yes Hypertension Neurological: Yes Headaches /Migraines 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: Yes (HX ENDOMETRIOSIS ) 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 Sexually Transmitted Disease: No HIV/AIDS: No Genitourinary: Yes UTI-Chronic Gastrointestinal: Yes (OBESITY) Abdominal Hernia, Gastroesophageal Reflux, Liver Disease/Jaundice, Obstructive Bowel, Pancreatitis, Polyps Musculoskeletal: Yes (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) Chronic Back Pain Endocrine: No (pancrease not working) HEENT: No Loss of Vision: Denies Hearing Impairment: Denies Cancer: Yes Kidney Did You Recieve Any Treatments: Yes What Type of Treatment Did You: Surgical Intervention Psychosocial: Yes Anxiety, Depression Integumentary: No Herpes Blood Disorders: No Adverse Reaction/Blood Tranf: No (N/A) Family Medical History Cardiovascular disease 19 FATHER Completed stroke 19 FATHER Diabetes mellitus 19 FATHER Hypercholesterolemia 19 FATHER 19 MOTHER Hypertension 19 FATHER 19 MOTHER Neoplasm 19 MOTHER Psychosocial problem 19 FATHER 19 MOTHER No Pertinent Family Hx, Cancer, Diabetes, Hypertension PSH: -RIGHT KNEE SCOPE X 5 -LEFT KNEE SCOPE X 2 -TONSILLECTOMY / ADENOIDECTOMY -APPENDECTOMY -CHOLECYSTECTOMY -NASAL FRACTURE REPAIR -COCCYX REMOVAL -LEFT NEPHRECTOMY FOR MALIGNANCY -LEFT MID ABDOMEN INCISIONAL HERNIA REPAIR -DRAINAGE OF ABDOMINAL WALL ABSCESS -MULTIPLE EGD'S AND COLONOSCOPIES--LAST ONE DONE HERE 10/26/19 -HYSTERECTOMY / BILATERAL SALPINGO-OOPHORECTOMY 2007 -06/23/20--RIGHT CHEST WALL/SHOULDER INJECTION FOR THORACIC OUTLET SYNDROME--DONE IN Physical Exam Vital Signs Capillary Refill : Height/Weight/BMI Height: 5'3.00" Weight: 246lbs. 0oz. [phone]; 47.00 BMI Method:Stated General Appearance: WD/WN, no apparent distress, obese Respiratory: no respiratory distress, no accessory muscle use Cardiovascular: regular rate, rhythm, no murmur Gastrointestinal: normal bowel sounds, non tender, soft Extremities: normal range of motion, non-tender Neurologic/Psychiatric: alert, normal mood/affect, oriented x 3 Skin: normal color, warm/dry Departure Impression Primary Impression: Chronic pain Additional Impression: Chronic nausea Disposition: 01 HOME, SELF-CARE Condition: Stable Departure-Patient Inst. Decision time for Depature: 16:24 Referrals: CARMEN GIBBS MD (PCP/Family) Primary Care Physician Patient Instructions: Nausea and Vomiting, Adult (DC) Add. Discharge Instructions: All discharge instructions reviewed with patient and/or family. Voiced understanding. GEORGES FINN BLOCK ENGRAVER Mar 23, 2021 16:25
[2021-03-23] MEDS ORDERED: LIDOCAINE 2% VISCOUS 15 ML UDC PO ONE (16:30)
[2021-03-23] MEDS ORDERED: PROMETHAZINE INJ 25 MG/ML (PHENERGAN) AMP IM ONE (16:30)
[2021-03-23] MEDS ORDERED: ANTACID SUSP 30 ML UDC (MYLANTA) PO ONE (16:30)
[2021-03-23] MEDS ORDERED: diphenhydrAMINE 50 MG/ML INJ (BENADRYL) IM ONE (16:30)
== END 2021-03-23 16:40 | disposition home or self-care (01) ==
LOC: EDUNIT# 16:11 → ER 16:12
DX: G89.29 Other chronic pain (principal); R10.9 Unspecified abdominal pain; R11.2 Nausea with vomiting, unspecified; I10 Essential (primary) hypertension; J45.909 Unspecified asthma, uncomplicated; G43.909 Migraine, unspecified, not intractable, without status migrainosus; K21.9 Gastro-esophageal reflux disease without esophagitis; M54.9 Dorsalgia, unspecified; F41.9 Anxiety disorder, unspecified; F32.A Depression, unspecified; E66.9 Obesity, unspecified; Z68.42 Body mass index [BMI] 45.0-49.9, adult; Z79.891 Long term (current) use of opiate analgesic; Z79.899 Other long term (current) drug therapy
CPT/HCPCS: 99284

== ENCOUNTER 2021-04-09 17:15 | Emergency (ER) | payer MEDICARE, MEDICAID ==
[~2021-04-09] VITALS: Ht 160 cm; Wt 115.0 kg
[2021-04-09 17:20] VITALS: BP 138/88
--- NOTE | 2021-04-09 17:52 | ED General ---
General Chief Complaint: General Problems/Pain Stated Complaint: PAIN AROUND PORT/L ARM NUMB/ABD PAIN Nursing Triage Note: PT AMB TO ROOM 6 PT CO OF L CHEST PORT PAIN L ARM PAIN AND NUMBNESS SINCE PORT PUT IN, ABD PAIN ON L SIDE WHERE MESH IS. Source of Information: Patient Exam Limitations: No Limitations History of Present Illness Date Seen by Provider: Apr 09, 2021 Time Seen by Provider: 17:33 Initial Comments This is a well appearing 36 yo female who presented to the ER. Allergies and Home Medications Allergies Coded Allergies: fentanyl (Verified Allergy, Unknown, 10/16/18) meperidine (Verified Allergy, Unknown, 10/16/18) penicillin G (Verified Allergy, Unknown, 10/16/18) prochlorperazine (Verified Allergy, Unknown, 03/15/21) trimethobenzamide (Unverified Allergy, Unknown, 09/05/20) vancomycin (Verified Adverse Reaction, Intermediate, severe itching, 10/26/19) Patient Home Medication List Acetaminophen (Tylenol Extra Strength) 500 Mg Tablet, 1,000 MG PO Q8H PRN for PAIN-MILD (1-4), (Reported) Entered as Reported by: EMILIO SHEPPARD on 10/26/19 0812 Atorvastatin Calcium (Atorvastatin Calcium) 20 Mg Tablet, 20 MG PO HS, (Reported) Entered as Reported by: LEX HOSKINS on 12/07/20 0916 Cyclobenzaprine HCl (Cyclobenzaprine HCl) 10 Mg Tablet, 10 MG PO Q8H PRN for SPASMS Prescribed by: MAKAYLA HAWKINS on 02/28/21 0942 Diphenhydramine HCl (Benadryl) 25 Mg Capsule, 25 MG PO HS PRN for SLEEP, (Reported) Entered as Reported by: EMILIO SHEPPARD on 10/26/19 0812 Hydrocodone/Acetaminophen (Hydrocodone-Acetamin 5-325 mg) 1 Each Tablet, 2 EACH PO Q6H PRN for PAIN-MILD (1-4), (Reported) Entered as Reported by: EMILIO SHEPPARD on 10/26/19 0812 Lipase/Protease/Amylase (Creon Dr 24,000 Units Capsule) 1 Each Capsule.dr, 2 CAP PO TIDWM, (Reported) Entered as Reported by: LEX HOSKINS on 12/07/20 0916 Metoclopramide HCl (Reglan) 5 Mg Tablet, 5 MG PO Q6H PRN for NAUSEA/VOMITING-3RD LINE Prescribed by: IZABELA MAC on 03/13/21 1301 Multivitamin (Multiple Vitamins) 1 Each Tablet, 1 EACH PO DAILY, (Reported) Entered as Reported by: CATHERINE BRENNER on 09/07/19 1404 Omeprazole (Omeprazole) 40 Mg Capsule.dr, 40 MG PO BID, (Reported) Entered as Reported by: LEX HOSKINS on 12/07/20 0916 Ondansetron (Ondansetron Odt) 8 Mg Tab.rapdis, 8 MG PO Q8H PRN for NAUSEA/VOMITING, (Reported) Entered as Reported by: EMILIO SHEPPARD on 10/26/19 0812 Promethazine HCl (Promethazine Tablet) 25 Mg Tablet, 25 MG PO Q6H PRN for NAUSEA/VOMITING, (Reported) Entered as Reported by: LEX HOSKINS on 12/07/20 0916 Ropinirole HCl (Ropinirole HCl) 4 Mg Tablet, 4 MG PO HS, (Reported) Entered as Reported by: LEX HOSKINS on 06/28/17 1010 Sertraline HCl (Sertraline HCl) 100 Mg Tablet, 100 MG PO HS, (Reported) Entered as Reported by: LEX HOSKINS on 12/07/20 0912 Sitagliptin Phos/Metformin HCl (Janumet Xr 50-1,000 mg Tablet) 1 Each Tbmp.24hr, 2 TAB-CAP PO DAILY@1900, (Reported) Entered as Reported by: LEX HOSKINS on 12/07/20 0916 Sulfamethoxazole/Trimethoprim (Bactrim Ds Tablet) 1 Each Tablet, 1 EACH PO BID Prescribed by: MAKAYLA HAWKINS on 03/19/21 1218 Past Zphfooz-Umtwns-Veoimb Hx Patient Social History Tobacco Use?: No Substance use?: No Alcohol Use?: No Immunizations Up To Date Tetanus Booster (TDap): Less than 5yrs PED Vaccines UTD: No First/Initial COVID19 Vaccinat: no Second COVID19 Vaccination Alvaro: no Third COVID19 Vaccination Date: no Seasonal Allergies Seasonal Allergies: No Past Medical History Surgeries: Yes (hernia repair x2, knee scopes) Adenoidectomy, Appendectomy, Gallbladder, 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, Nephrectomy, Orthopedic, Tonsillectomy Respiratory: Yes Asthma Currently Using CPAP: No Currently Using BIPAP: No Cardiac: Yes Hypertension Neurological: Yes Headaches /Migraines 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: Yes (HX ENDOMETRIOSIS ) 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: 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 [employer]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 Sexually Transmitted Disease: No HIV/AIDS: No Genitourinary: Yes UTI-Chronic Gastrointestinal: Yes (OBESITY) Abdominal Hernia, Gastroesophageal Reflux, Liver Disease/Jaundice, Obstructive Bowel, Pancreatitis, Polyps Musculoskeletal: Yes (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) Chronic Back Pain Endocrine: No (pancrease not working) HEENT: No Loss of Vision: Denies Hearing Impairment: Denies Cancer: Yes Kidney Did You Recieve Any Treatments: Yes What Type of Treatment Did You: Surgical Intervention Psychosocial: Yes Anxiety, Depression Integumentary: No Herpes Blood Disorders: No Adverse Reaction/Blood Tranf: No (N/A) Family Medical History Cardiovascular disease 19 FATHER Completed stroke 19 FATHER Diabetes mellitus 19 FATHER Hypercholesterolemia 19 FATHER 19 MOTHER Hypertension 19 FATHER 19 MOTHER Neoplasm 19 MOTHER Psychosocial problem 19 FATHER 19 MOTHER No Pertinent Family Hx, Cancer, Diabetes, Hypertension PSH: -RIGHT KNEE SCOPE X 5 -LEFT KNEE SCOPE X 2 -TONSILLECTOMY / ADENOIDECTOMY -APPENDECTOMY -CHOLECYSTECTOMY -NASAL FRACTURE REPAIR -COCCYX REMOVAL -LEFT NEPHRECTOMY FOR MALIGNANCY -LEFT MID ABDOMEN INCISIONAL HERNIA REPAIR -DRAINAGE OF ABDOMINAL WALL ABSCESS -MULTIPLE EGD'S AND COLONOSCOPIES--LAST ONE DONE HERE 10/26/19 -HYSTERECTOMY / BILATERAL SALPINGO-OOPHORECTOMY 2007 -06/23/20--RIGHT CHEST WALL/SHOULDER INJECTION FOR THORACIC OUTLET SYNDROME--DONE IN Physical Exam Vital Signs Vital Signs - First Documented 04/09/21 17:20 Temp 36.2 Pulse 92 Resp 18 B/P (MAP) 138/88 (105) Pulse Ox 96 Capillary Refill : Less Than 3 Seconds Height, Weight, BMI Height: 5'3.00" Weight: 246lbs. 0oz. 111.821244rd; 44.00 BMI Method:Stated Progress/Results/Core Measures Suspected Sepsis SIRS Temperature: Pulse: 92 Respiratory Rate: 18 Laboratory Tests 04/09/21 17:40: White Blood Count 9.2 Blood Pressure 138 /88 Mean: 105 Laboratory Tests 04/09/21 17:40: Creatinine 0.90, Platelet Count 249, Total Bilirubin 0.4 Results/Orders Lab Results Laboratory Tests Test 04/09/21 17:40 Range/Units White Blood Count 9.2 4.3-11.0 10^3/uL Red Blood Count 4.42 3.80-5.11 10^6/uL Hemoglobin 12.0 11.5-16.0 g/dL Hematocrit 37 35-52 % Mean Corpuscular Volume 84 80-99 fL Mean Corpuscular Hemoglobin 27 25-34 pg Mean Corpuscular Hemoglobin Concent 32 32-36 g/dL Red Cell Distribution Width 14.0 10.0-14.5 % Platelet Count 249 130-400 10^3/uL Mean Platelet Volume 9.5 9.0-12.2 fL Immature Granulocyte % (Auto) 1 % Neutrophils (%) (Auto) 60 42-75 % Lymphocytes (%) (Auto) 32 12-44 % Monocytes (%) (Auto) 4 0-12 % Eosinophils (%) (Auto) 3 0-10 % Basophils (%) (Auto) 0 0-10 % Neutrophils # (Auto) 5.5 1.8-7.8 X 10^3 Lymphocytes # (Auto) 3.0 1.0-4.0 X 10^3 Monocytes # (Auto) 0.4 0.0-1.0 X 10^3 Eosinophils # (Auto) 0.3 0.0-0.3 10^3/uL Basophils # (Auto) 0.0 0.0-0.1 10^3/uL Immature Granulocyte # (Auto) 0.1 0.0-0.1 10^3/uL Sodium Level 142 135-145 MMOL/L Potassium Level 3.9 3.6-5.0 MMOL/L Chloride Level 105 98-107 MMOL/L Carbon Dioxide Level 23 21-32 MMOL/L Anion Gap 14 5-14 MMOL/L Blood Urea Nitrogen 19 H 7-18 MG/DL Creatinine 0.90 0.60-1.30 MG/DL Estimat Glomerular Filtration Rate 70 BUN/Creatinine Ratio 21 Glucose Level 151 H 70-105 MG/DL Calcium Level 9.8 8.5-10.1 MG/DL Corrected Calcium 9.8 8.5-10.1 MG/DL Total Bilirubin 0.4 0.1-1.0 MG/DL Aspartate Amino Transf (AST/SGOT) 48 H 5-34 U/L Alanine Aminotransferase (ALT/SGPT) 49 0-55 U/L Alkaline Phosphatase 83 40-136 U/L C-Reactive Protein High Sensitivity 1.59 H 0.00-0.50 MG/DL Total Protein 7.3 6.4-8.2 GM/DL Albumin 4.0 3.2-4.5 GM/DL My Orders Orders - OSVALDO CALDWELL [employer] DEVELOPER Cbc With Automated Diff (04/09/21 17:25) Comprehensive Metabolic Panel (04/09/21 17:25) Procalcitonin (Pct) (04/09/21 17:25) Hs C Reactive Protein (04/09/21 17:25) Ondansetron Injection (Zofran Injectio (04/09/21 18:15) Dexamethasone Injection (Decadron Injec (04/09/21 18:15) Medications Given in ED Current Medications Medications Dose Ordered Sig/Neal Route Start Time Stop Time Status Last Admin Dose Admin Dexamethasone Sodium Phosphate 8 mg ONCE ONCE IV 04/09/21 18:15 04/09/21 18:16 UNV 04/09/21 18:25 8 MG Ondansetron HCl 4 mg ONCE ONCE IVP 04/09/21 18:15 04/09/21 18:16 UNV 04/09/21 18:25 4 MG Vital Signs/I&O 04/09/21 17:20 Temp 36.2 Pulse 92 Resp 18 B/P (MAP) 138/88 (105) Pulse Ox 96 Capillary Refill : Less Than 3 Seconds Blood Pressure Mean: 105 Departure Impression Primary Impression: Arm pain, left Additional Impression: Chronic abdominal pain Disposition: 01 HOME, SELF-CARE Condition: Stable Departure-Patient Inst. Decision time for Depature: 18:14 Referrals: CARMEN GIBBS MD (PCP/Family) Primary Care Physician Patient Instructions: Chronic Pain Add. Discharge Instructions: Plan: 1. Follow up with Dr. Roman if your symptoms persist. 2. Rest, may apply ice to your upper arm for 20 minutes at a time. 3. Return for any new, concerning, or worsening symptoms. All discharge instructions reviewed with patient and/or family. Voiced understanding. OSVALDO CALDWELL APRN Apr 09, 2021 17:52
[2021-04-09 17:55] LABS: BASOPHILS % (AUTO) 0 % (0-10); EOSINOPHILS # (AUTO) 0.3 10^3/uL (0.0-0.3); EOSINOPHILS % (AUTO) 3 % (0-10); HEMATOCRIT 37 % (35-52); LYMPHOCYTES % (AUTO) 32 % (12-44); MEAN CORPUSCULAR HEMOGLOBIN 27 pg (25-34); MEAN CORPUSCULAR HGB CONC 32 g/dL (32-36); MEAN CORPUSCULAR VOLUME 84 fL (80-99); MEAN PLATELET VOLUME 9.5 fL (9.0-12.2); MONOCYTES # (AUTO) 0.4 X 10^3 (0.0-1.0); MONOCYTES % (AUTO) 4 % (0-12); NEUTROPHILS # (AUTO) 5.5 X 10^3 (1.8-7.8); NEUTROPHILS % (AUTO) 60 % (42-75); PLATELET COUNT 249 10^3/uL (130-400); WHITE BLOOD COUNT 9.2 10^3/uL (4.3-11.0)
[2021-04-09 17:57] LABS: POTASSIUM 3.9 MMOL/L (3.6-5.0)
[2021-04-09 17:58] LABS: CALCIUM 9.8 MG/DL (8.5-10.1)
[2021-04-09 18:00] LABS: TOTAL PROTEIN 7.3 GM/DL (6.4-8.2)
[2021-04-09 18:01] LABS: BILIRUBIN,TOTAL 0.4 MG/DL (0.1-1.0)
[2021-04-09 18:03] LABS: CREATININE SERUM 0.9 MG/DL (0.60-1.30)
[2021-04-09] MEDS ORDERED: ONDANSETRON 4 MG/2 ML (SDV) Z0FRAN IVP ONE (18:15)
[2021-04-09] MEDS ORDERED: ONDANSETRON 4 MG/2 ML (SDV) Z0FRAN ONE (18:24)
== END 2021-04-09 18:56 | disposition home or self-care (01) ==
LOC: EDUNIT# 17:15 → ER 17:16
DX: G89.29 Other chronic pain (principal); M79.602 Pain in left arm; R10.9 Unspecified abdominal pain; J45.909 Unspecified asthma, uncomplicated; I10 Essential (primary) hypertension; K21.9 Gastro-esophageal reflux disease without esophagitis; F41.9 Anxiety disorder, unspecified; F32.9 Major depressive disorder, single episode, unspecified; M54.9 Dorsalgia, unspecified; Z79.899 Other long term (current) drug therapy; Z79.891 Long term (current) use of opiate analgesic
CPT/HCPCS: 36415; 80053; 84145; 85025; 86141

== ENCOUNTER 2021-04-21 20:45 | Emergency (ER) | payer MEDICARE, MEDICAID ==
[~2021-04-21] VITALS: Ht 160 cm; Wt 110.0 kg
[~2021-04-21 20:45] MED LIST changes: -ESTR2TAB PO; +ESTR2TAB3 PO
[2021-04-21] MEDS ORDERED: diphenhydrAMINE 50 MG/ML INJ (BENADRYL) IM ONE (21:00)
[2021-04-21] MEDS ORDERED: PROMETHAZINE INJ 25 MG/ML (PHENERGAN) AMP IM ONE (21:00)
[2021-04-21] MEDS ORDERED: ONDANSETRON 4 MG (ZOFRAN) ORAL DISSOLVE TAB PO ONE (21:00)
--- NOTE | 2021-04-21 21:04 | ED GI ---
General Chief Complaint: Abdominal/GI Problems Stated Complaint: VOMITING/STOMACH PAIN Source of Information: Patient Exam Limitations: No Limitations History of Present Illness Date Seen by Provider: Apr 21, 2021 Time Seen by Provider: 21:02 Initial Comments To ER with c/o diffuse abdominal pain and nausea. Timing/Duration: 1-2 Days Severity/Quality: Moderate Radiation: No Radiation Activities at Onset: None Associated Symptoms: Nausea/Vomiting Allergies and Home Medications Allergies Coded Allergies: fentanyl (Verified Allergy, Unknown, 10/16/18) meperidine (Verified Allergy, Unknown, 10/16/18) penicillin G (Verified Allergy, Unknown, 10/16/18) prochlorperazine (Verified Allergy, Unknown, 03/15/21) trimethobenzamide (Unverified Allergy, Unknown, 09/05/20) vancomycin (Verified Adverse Reaction, Intermediate, severe itching, 10/26/19) Patient Home Medication List Home Medication List Reviewed: Yes Acetaminophen (Tylenol Extra Strength) 500 Mg Tablet, 1,000 MG PO Q8H PRN for PAIN-MILD (1-4), (Reported) Entered as Reported by: EMILIO SHEPPARD on 10/26/19 0812 Atorvastatin Calcium (Atorvastatin Calcium) 20 Mg Tablet, 20 MG PO HS, (Reported) Entered as Reported by: LEX HOSKINS on 12/07/20 0916 Cyclobenzaprine HCl (Cyclobenzaprine HCl) 10 Mg Tablet, 10 MG PO Q8H PRN for SPASMS Prescribed by: MAKAYLA HAWKINS on 02/28/21 0942 Diphenhydramine HCl (Benadryl) 25 Mg Capsule, 25 MG PO HS PRN for SLEEP, (Reported) Entered as Reported by: EMILIO SHEPPARD on 10/26/19 0812 Hydrocodone/Acetaminophen (Hydrocodone-Acetamin 5-325 mg) 1 Each Tablet, 2 EACH PO Q6H PRN for PAIN-MILD (1-4), (Reported) Entered as Reported by: EMILIO SHEPPARD on 10/26/19 08 Lipase/Protease/Amylase (Creon Dr 24,000 Units Capsule) 1 Each Capsule.dr, 2 CAP PO TIDWM, (Reported) Entered as Reported by: LEX HOSKINS on 12/07/20 0916 Metoclopramide HCl (Reglan) 5 Mg Tablet, 5 MG PO Q6H PRN for NAUSEA/VOMITING-3RD LINE Prescribed by: IZABELA MAC on 03/13/21 1301 Multivitamin (Multiple Vitamins) 1 Each Tablet, 1 EACH PO DAILY, (Reported) Entered as Reported by: CATHERINE BRENNER on 09/07/19 1404 Omeprazole (Omeprazole) 40 Mg Capsule.dr, 40 MG PO BID, (Reported) Entered as Reported by: LEX HOSKINS on 12/07/20 0916 Ondansetron (Ondansetron Odt) 8 Mg Tab.rapdis, 8 MG PO Q8H PRN for NAUSEA/VOMITING, (Reported) Entered as Reported by: EMILIO SHEPPARD on 10/26/19 0812 Promethazine HCl (Promethazine Tablet) 25 Mg Tablet, 25 MG PO Q6H PRN for NAUSEA/VOMITING, (Reported) Entered as Reported by: LEX HOSKINS on 12/07/20 0916 Ropinirole HCl (Ropinirole HCl) 4 Mg Tablet, 4 MG PO HS, (Reported) Entered as Reported by: LEX HOSKINS on 06/28/17 1010 Sertraline HCl (Sertraline HCl) 100 Mg Tablet, 100 MG PO HS, (Reported) Entered as Reported by: LEX HOSKINS on 12/07/20 0912 Sitagliptin Phos/Metformin HCl (Janumet Xr 50-1,000 mg Tablet) 1 Each Tbmp.24hr, 2 TAB-CAP PO DAILY@1900, (Reported) Entered as Reported by: LEX HOSKINS on 12/07/20 0916 Sulfamethoxazole/Trimethoprim (Bactrim Ds Tablet) 1 Each Tablet, 1 EACH PO BID Prescribed by: MAKAYLA HAWKINS on 03/19/21 1218 Review of Systems Review of Systems Constitutional: see HPI EENTM: No Symptoms Reported Respiratory: No Symptoms Reported Cardiovascular: No Symptoms Reported Gastrointestinal: No Symptoms Reported Genitourinary: No Symptoms Reported Musculoskeletal: no symptoms reported Skin: no symptoms reported Psychiatric/Neurological: No Symptoms Reported Endocrine: No Symptoms Reported Hematologic/Lymphatic: No Symptoms Reported Past Nxrpwci-Sgwbin-Gqpuul Hx Immunizations Up To Date Tetanus Booster (TDap): Less than 5yrs PED Vaccines UTD: No First/Initial COVID19 Vaccinat: no Second COVID19 Vaccination Alvaro: no Third COVID19 Vaccination Date: no Seasonal Allergies Seasonal Allergies: No Past Medical History Surgeries: Yes (hernia repair x2, knee scopes) Adenoidectomy, Appendectomy, Gallbladder, 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, Nephrectomy, Orthopedic, Tonsillectomy Respiratory: Yes Asthma Currently Using CPAP: No Currently Using BIPAP: No Cardiac: Yes Hypertension Neurological: Yes Headaches /Migraines 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: Yes (HX ENDOMETRIOSIS ) 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: 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 Sexually Transmitted Disease: No HIV/AIDS: No Genitourinary: Yes UTI-Chronic Gastrointestinal: Yes (OBESITY) Abdominal Hernia, Gastroesophageal Reflux, Liver Disease/Jaundice, Obstructive Bowel, Pancreatitis, Polyps Musculoskeletal: Yes (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) Chronic Back Pain Endocrine: No (pancrease not working) HEENT: No Loss of Vision: Denies Hearing Impairment: Denies Cancer: Yes Kidney Did You Recieve Any Treatments: Yes What Type of Treatment Did You: Surgical Intervention Psychosocial: Yes Anxiety, Depression Integumentary: No Herpes Blood Disorders: No Adverse Reaction/Blood Tranf: No (N/A) Family Medical History Cardiovascular disease 19 FATHER Completed stroke 19 FATHER Diabetes mellitus 19 FATHER Hypercholesterolemia 19 FATHER 19 MOTHER Hypertension 19 FATHER 19 MOTHER Neoplasm 19 MOTHER Psychosocial problem 19 FATHER 19 MOTHER No Pertinent Family Hx, Cancer, Diabetes, Hypertension PSH: -RIGHT KNEE SCOPE X 5 -LEFT KNEE SCOPE X 2 -TONSILLECTOMY / ADENOIDECTOMY -APPENDECTOMY -CHOLECYSTECTOMY -NASAL FRACTURE REPAIR -COCCYX REMOVAL -LEFT NEPHRECTOMY FOR MALIGNANCY -LEFT MID ABDOMEN INCISIONAL HERNIA REPAIR -DRAINAGE OF ABDOMINAL WALL ABSCESS -MULTIPLE EGD'S AND COLONOSCOPIES--LAST ONE DONE HERE 10/26/19 -HYSTERECTOMY / BILATERAL SALPINGO-OOPHORECTOMY 2007 -06/23/20--RIGHT CHEST WALL/SHOULDER INJECTION FOR THORACIC OUTLET SYNDROME--DONE IN Physical Exam Vital Signs Vital Signs - First Documented 04/21/21 20:50 Temp 36.8 Pulse 90 Resp 20 B/P (MAP) 152/107 (122) Pulse Ox 96 O2 Delivery Room Air Capillary Refill : Height/Weight/BMI Height: 5'3.00" Weight: 246lbs. 0oz. 111.868776oo; 44.00 BMI Method:Stated General Appearance: WD/WN, no apparent distress, obese, other HEENT: PERRL/EOMI, normal ENT inspection Neck: non-tender, full range of motion Respiratory: no respiratory distress, no accessory muscle use Gastrointestinal: normal bowel sounds, soft, tenderness Extremities: normal range of motion, non-tender Neurologic/Psychiatric: alert, normal mood/affect, oriented x 3 Skin: normal color, warm/dry Progress/Results/Core Measures Results/Orders My Orders Orders - GEORGES FINN APRN Promethazine Injection (Phenergan Injec (04/21/21 21:00) Diphenhydramine Injection (Benadryl Inje (04/21/21 21:00) Ondansetron Oral Dissolve Tab (Zofran (04/21/21 21:00) Antacid Suspension (Mylanta Suspension (04/21/21 22:00) Lidocaine 2% Viscous 15 Ml (Xylocaine Vi (04/21/21 22:00) Oxycodone/Apap 5/325mg Tablet (Percocet (04/21/21 22:00) Abdomen/Kub 1view (04/21/21 21:47) Medications Given in ED Current Medications Medications Dose Ordered Sig/Neal Route Start Time Stop Time Status Last Admin Dose Admin Al Hydrox/Mg Hydrox/Simethicone 30 ml ONCE ONCE PO 04/21/21 22:00 04/21/21 22:01 DC 04/21/21 22:07 30 ML Diphenhydramine HCl 50 mg ONCE ONCE IM 04/21/21 21:00 04/21/21 21:01 DC 04/21/21 21:13 50 MG Lidocaine HCl 15 ml ONCE ONCE PO 04/21/21 22:00 04/21/21 22:01 DC 04/21/21 22:07 15 ML Ondansetron HCl 8 mg ONCE ONCE PO 04/21/21 21:00 04/21/21 21:01 DC 04/21/21 21:14 8 MG Oxycodone/ Acetaminophen 1 tab ONCE ONCE PO 04/21/21 22:00 04/21/21 22:01 DC 04/21/21 22:07 1 TAB Promethazine HCl 25 mg ONCE ONCE IM 04/21/21 21:00 04/21/21 21:01 DC 04/21/21 21:14 25 MG Vital Signs/I&O 04/21/21 20:50 Temp 36.8 Pulse 90 Resp 20 B/P (MAP) 152/107 (122) Pulse Ox 96 O2 Delivery Room Air Departure Communication (Admissions) NAME: JAYLYN DELGADO [facility] REC#: [id number] PT STATUS: REG ER : 1985 PHYSICIAN: GEORGSE FINN APRN ADMIT DATE: 04/21/21/ER Draft Date of Exam:04/21/21 ABDOMEN/KUB 1VIEW INDICATION: Abdominal pain. EXAMINATION: Abdominal film obtained at 10:02 p.m. FINDINGS: Abdominal bowel gas pattern is unremarkable. There are surgical clips in the right upper quadrant and right lower quadrant. There is no suspicious calcification. There are phleboliths in the pelvis. IMPRESSION: Unremarkable bowel gas pattern. Postop changes. No acute abnormality. Dictated on workstation # [id number] Dict: 04/21/[id number] Trans: 04/21/212203 [facility] [id number] Interpreted by: BHUPENDRA WONG MD Electronically signed by: Impression Primary Impression: Chronic abdominal pain Disposition: 01 HOME, SELF-CARE Condition: Stable Departure-Patient Inst. Decision time for Depature: 21:08 Referrals: CARMEN GIBBS MD (PCP/Family) Primary Care Physician Patient Instructions: No Instuctions Given GEORGES FINN APRN Apr 21, 2021 21:03
[2021-04-21] MEDS ORDERED: LIDOCAINE 2% VISCOUS 15 ML UDC PO ONE (22:00)
[2021-04-21] MEDS ORDERED: ANTACID SUSP 30 ML UDC (MYLANTA) PO ONE (22:00)
[2021-04-21] MEDS ORDERED: oxyCODONE/APAP 5/325MG (PERCOCET 5) TABLET PO ONE (22:00)
--- NOTE | 2021-04-21 22:05 | Diagnostic Imaging Report ---
INDICATION: Abdominal pain. EXAMINATION: Abdominal film obtained at 10:02 p.m. FINDINGS: Abdominal bowel gas pattern is unremarkable. There are surgical clips in the right upper quadrant and right lower quadrant. There is no suspicious calcification. There are phleboliths in the pelvis. IMPRESSION: Unremarkable bowel gas pattern. Postop changes. No acute abnormality. Dictated by: Dictated on workstation # [id number]
[2021-04-21 22:13] VITALS: BP 135/81
== END 2021-04-21 22:12 | disposition home or self-care (01) ==
LOC: EDUNIT# 20:45 → ER 20:47
DX: R10.84 Generalized abdominal pain (principal); J44.9 Chronic obstructive pulmonary disease, unspecified; I10 Essential (primary) hypertension; E66.9 Obesity, unspecified; K21.9 Gastro-esophageal reflux disease without esophagitis; F41.9 Anxiety disorder, unspecified; F32.9 Major depressive disorder, single episode, unspecified; G89.29 Other chronic pain; M54.9 Dorsalgia, unspecified; Z68.41 Body mass index [BMI] 40.0-44.9, adult; Z79.899 Other long term (current) drug therapy; Z79.891 Long term (current) use of opiate analgesic
CPT/HCPCS: 74018

== ENCOUNTER 2021-05-15 21:06 | Emergency (ER) | payer MEDICARE, MEDICAID ==
[~2021-05-15] VITALS: Ht 157.5 cm; Wt 102.6 kg
[~2021-05-15 21:06] MED LIST changes: +CYCL10TA25 PO; -FLUO20CA46 PO; +FLUO20CA48 PO; -LEVO500T80 PO; +LEVO500T81 PO; +ONDA-106 PO; -ONDA8TAB15 PO; +TIZA-186 PO; -TIZA4TAB4 PO
[2021-05-15] MEDS ORDERED: ONDANSETRON 4 MG/2 ML (SDV) Z0FRAN IVP ONE (21:15)
[2021-05-15] MEDS ORDERED: LACTATED RINGERS 1,000 ML IV ONE (21:15)
[2021-05-15 21:54] LABS: BILIRUBIN,URINE NEGATIVE (NEGATIVE); CLARITY,URINE SL CLOUDY; COLOR,URINE YELLOW; GLUCOSE, URINE (UA) NEGATIVE (NEGATIVE); KETONES,URINE NEGATIVE (NEGATIVE); LEUKOCYTE ESTERASE ,URINE NEGATIVE (NEGATIVE); NITRITE,URINE NEGATIVE (NEGATIVE); PROTEIN,URINE NEGATIVE (NEGATIVE)
[2021-05-15 22:02] LABS: BACTERIA,URINE NEGATIVE /HPF; SQUAMOUS EPITHELIAL CELL,UR 0-2 /HPF; WBC,URINE 0-2 /HPF
[2021-05-15 22:56] LABS: BASOPHILS % (AUTO) 1 % (0-10); EOSINOPHILS # (AUTO) 0.2 10^3/uL (0.0-0.3); EOSINOPHILS % (AUTO) 3 % (0-10); HEMATOCRIT 39 % (35-52); HEMOGLOBIN 12.7 g/dL (11.5-16.0); LYMPHOCYTES # (AUTO) 3.1 10^3/uL (1.0-4.0); LYMPHOCYTES % (AUTO) 37 % (12-44); MEAN CORPUSCULAR HEMOGLOBIN 27 pg (25-34); MEAN CORPUSCULAR HGB CONC 32 g/dL (32-36); MEAN CORPUSCULAR VOLUME 83 fL (80-99); MEAN PLATELET VOLUME 9.7 fL (9.0-12.2); MONOCYTES # (AUTO) 0.4 10^3/uL (0.0-1.0); MONOCYTES % (AUTO) 5 % (0-12); NEUTROPHILS # (AUTO) 4.5 10^3/uL (1.8-7.8); NEUTROPHILS % (AUTO) 55 % (42-75); PLATELET COUNT 215 10^3/uL (130-400); WHITE BLOOD COUNT 8.3 10^3/uL (4.3-11.0)
[2021-05-15 23:15] LABS: ALBUMIN 4.1 GM/DL (3.2-4.5); POTASSIUM 3.9 MMOL/L (3.6-5.0)
[2021-05-15 23:16] LABS: CALCIUM 9.5 MG/DL (8.5-10.1)
[2021-05-15 23:18] LABS: TOTAL PROTEIN 7.6 GM/DL (6.4-8.2)
[2021-05-15 23:19] LABS: BILIRUBIN,TOTAL 0.5 MG/DL (0.1-1.0)
[2021-05-15 23:21] LABS: CREATININE SERUM 0.76 MG/DL (0.60-1.30)
[2021-05-15 23:24] LABS: MAGNESIUM 1.9 MG/DL (1.6-2.4)
[2021-05-15] MEDS ORDERED: METOCLOPRAMIDE INJ 10 MG/2 ML (REGLAN) IVP ONE (23:30)
[2021-05-15] MEDS ORDERED: FAMOTIDINE 20MG/2ML IV (PEPCID) IVP ONE (23:30)
--- NOTE | 2021-05-16 00:24 | Diagnostic Imaging Report ---
Indication: Abdominal pain Supine and upright abdominal images are obtained Lung bases are clear. There is no intraperitoneal free air. Gallbladder and appendix appear to be surgically absent. There is a moderate amount of stool in the colon. Bowel gas pattern is normal. IMPRESSION: Postsurgical changes. Fecal stasis consistent with constipation. Dictated by: Dictated on workstation # [id number]
--- NOTE | 2021-05-16 01:08 | ED Abdominal Pain ---
General Chief Complaint: Abdominal/GI Problems Stated Complaint: NAUSEA/VOMITING/STOMACH PAIN Source of Information: Patient, Old Records Exam Limitations: No Limitations History of Present Illness Date Seen by Provider: May 15, 2021 Time Seen by Provider: 21:11 Allergies and Home Medications Allergies Coded Allergies: fentanyl (Verified Allergy, Unknown, 10/16/18) meperidine (Verified Allergy, Unknown, 10/16/18) penicillin G (Verified Allergy, Unknown, 10/16/18) prochlorperazine (Verified Allergy, Unknown, 03/15/21) trimethobenzamide (Unverified Allergy, Unknown, 09/05/20) vancomycin (Verified Adverse Reaction, Intermediate, severe itching, 10/26/19) Patient Home Medication List Acetaminophen (Tylenol Extra Strength) 500 Mg Tablet, 1,000 MG PO Q8H PRN for PAIN-MILD (1-4), (Reported) Entered as Reported by: EMILIO SHEPPARD on 10/26/19 0812 Atorvastatin Calcium (Atorvastatin Calcium) 20 Mg Tablet, 20 MG PO HS, (Reported) Entered as Reported by: LEX HOSKINS on 12/07/20 0916 Cyclobenzaprine HCl (Cyclobenzaprine HCl) 10 Mg Tablet, 10 MG PO Q8H PRN for SPA SMS Prescribed by: MAKAYLA HAWKINS on 02/28/21 0942 Diphenhydramine HCl (Benadryl) 25 Mg Capsule, 25 MG PO HS PRN for SLEEP, (Reported) Entered as Reported by: EMILIO SHEPPARD on 10/26/19 0812 Hydrocodone/Acetaminophen (Hydrocodone-Acetamin 5-325 mg) 1 Each Tablet, 2 EACH PO Q6H PRN for PAIN-MILD (1-4), (Reported) Entered as Reported by: EMILIO SHEPPARD on 10/26/19 0812 Lipase/Protease/Amylase (Creon Dr 24,000 Units Capsule) 1 Each Capsule.dr, 2 CAP PO TIDWM, (Reported) Entered as Reported by: LEX HOSKINS on 12/07/20 0916 Metoclopramide HCl (Reglan) 5 Mg Tablet, 5 MG PO Q6H PRN for NAUSEA/VOMITING-3RD LINE Prescribed by: IZABELA MAC on 03/13/21 1301 Multivitamin (Multiple Vitamins) 1 Each Tablet, 1 EACH PO DAILY, (Reported) Entered as Reported by: CATHERINE BRENNER on 09/07/19 1404 Omeprazole (Omeprazole) 40 Mg Capsule.dr, 40 MG PO BID, (Reported) Entered as Reported by: LEX HOSKINS on 12/07/20 0916 Ondansetron (Ondansetron Odt) 8 Mg Tab.rapdis, 8 MG PO Q8H PRN for NAUSEA/VOMITING, (Reported) Entered as Reported by: EMILIO SHEPPARD on 10/26/19 0812 Promethazine HCl (Promethazine Tablet) 25 Mg Tablet, 25 MG PO Q6H PRN for NAUSEA/VOMITING, (Reported) Entered as Reported by: LEX HOSKINS on 12/07/20 0916 Ropinirole HCl (Ropinirole HCl) 4 Mg Tablet, 4 MG PO HS, (Reported) Entered as Reported by: LEX HOSKINS on 06/28/17 1010 Sertraline HCl (Sertraline HCl) 100 Mg Tablet, 100 MG PO HS, (Reported) Entered as Reported by: LEX HOSKINS on 12/07/20 0912 Sitagliptin Phos/Metformin HCl (Janumet Xr 50-1,000 mg Tablet) 1 Each Tbmp.24hr, 2 TAB-CAP PO DAILY@1900, (Reported) Entered as Reported by: LEX HOSKINS on 12/07/20 0916 Sulfamethoxazole/Trimethoprim (Bactrim Ds Tablet) 1 Each Tablet, 1 EACH PO BID Prescribed by: MAKAYLA HAWKINS on 03/19/21 1218 Past Vztnaye-Xzqtyv-Kahvgi Hx Patient Social History Tobacco Use?: No Smoking Status: Never a Smoker Use of E-Cig and/or Vaping dev: No Substance use?: No Alcohol Use?: No Pt feels they are or have been: No Immunizations Up To Date Tetanus Booster (TDap): Less than 5yrs PED Vaccines UTD: No Influenza Vaccine Up-to-Date: No; Not Current First/Initial COVID19 Vaccinat: none Second COVID19 Vaccination Alvaro: no Third COVID19 Vaccination Date: no Seasonal Allergies Seasonal Allergies: No Past Medical History Surgery/Hospitalization HX: several surgeries including 1 kidney removal, appendectomy, cammie., and power port placement Surgeries: Yes (hernia repair x2, knee scopes) Adenoidectomy, Appendectomy, Gallbladder, 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, Nephrectomy, Orthopedic, Tonsillectomy Respiratory: Yes Asthma Currently Using CPAP: No Currently Using BIPAP: No Cardiac: Yes Hypertension Neurological: Yes Headaches /Migraines 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: Yes (HX ENDOMETRIOSIS ) 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: 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 Sexually Transmitted Disease: No HIV/AIDS: No Genitourinary: Yes UTI-Chronic Gastrointestinal: Yes (OBESITY) Abdominal Hernia, Gastroesophageal Reflux, Liver Disease/Jaundice, Obstructive Bowel, Pancreatitis, Polyps Musculoskeletal: Yes (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) Chronic Back Pain Endocrine: No (pancrease not working) HEENT: No Loss of Vision: Denies Hearing Impairment: Denies Cancer: Yes Kidney Did You Recieve Any Treatments: Yes What Type of Treatment Did You: Surgical Intervention Psychosocial: Yes Anxiety, Depression Integumentary: No Herpes Blood Disorders: No Adverse Reaction/Blood Tranf: No (N/A) Family Medical History Cardiovascular disease 19 FATHER Completed stroke 19 FATHER Diabetes mellitus 19 FATHER Hypercholesterolemia 19 FATHER 19 MOTHER Hypertension 19 FATHER 19 MOTHER Neoplasm 19 MOTHER Psychosocial problem 19 FATHER 19 MOTHER No Pertinent Family Hx, Cancer, Diabetes, Hypertension PSH: -RIGHT KNEE SCOPE X 5 -LEFT KNEE SCOPE X 2 -TONSILLECTOMY / ADENOIDECTOMY -APPENDECTOMY -CHOLECYSTECTOMY -NASAL FRACTURE REPAIR -COCCYX REMOVAL -LEFT NEPHRECTOMY FOR MALIGNANCY -LEFT MID ABDOMEN INCISIONAL HERNIA REPAIR -DRAINAGE OF ABDOMINAL WALL ABSCESS -MULTIPLE EGD'S AND COLONOSCOPIES--LAST ONE DONE HERE 10/26/19 -HYSTERECTOMY / BILATERAL SALPINGO-OOPHORECTOMY 2007 -06/23/20--RIGHT CHEST WALL/SHOULDER INJECTION FOR THORACIC OUTLET SYNDROME--DONE IN Physical Exam Vital Signs Vital Signs - First Documented 05/15/21 21:40 Pulse 80 Resp 20 Capillary Refill : Less Than 3 Seconds Height/Weight/BMI Height: 5'3.00" Weight: 246lbs. 0oz. 111.975330xp; 41.00 BMI Method:Stated Progress/Results/Core Measures Results/Orders Lab Results Laboratory Tests Test 05/15/21 21:41 05/15/21 22:51 Range/Units Urine Color YELLOW Urine Clarity SL CLOUDY Urine pH 6.0 5-9 Urine Specific [place] >=1.030 1.016-1.022 Urine Protein NEGATIVE NEGATIVE Urine Glucose (UA) NEGATIVE NEGATIVE Urine Ketones NEGATIVE NEGATIVE Urine Nitrite NEGATIVE NEGATIVE Urine Bilirubin NEGATIVE NEGATIVE Urine Urobilinogen 0.2 < = 1.0 MG/DL Urine Leukocyte Esterase NEGATIVE NEGATIVE Urine RBC (Auto) NEGATIVE NEGATIVE Urine RBC NONE /HPF Urine WBC 0-2 /HPF Urine Squamous Epithelial Cells 0-2 /HPF Urine Renal Epithelial Cells NONE /HPF Urine Crystals NONE /LPF Urine Bacteria NEGATIVE /HPF Urine Casts NONE /LPF Urine Mucus NEGATIVE /LPF Urine Culture Indicated NO White Blood Count 8.3 4.3-11.0 10^3/uL Red Blood Count 4.70 3.80-5.11 10^6/uL Hemoglobin 12.7 11.5-16.0 g/dL Hematocrit 39 35-52 % Mean Corpuscular Volume 83 80-99 fL Mean Corpuscular Hemoglobin 27 25-34 pg Mean Corpuscular Hemoglobin Concent 32 32-36 g/dL Red Cell Distribution Width 13.5 10.0-14.5 % Platelet Count 215 130-400 10^3/uL Mean Platelet Volume 9.7 9.0-12.2 fL Immature Granulocyte % (Auto) 1 % Neutrophils (%) (Auto) 55 42-75 % Lymphocytes (%) (Auto) 37 12-44 % Monocytes (%) (Auto) 5 0-12 % Eosinophils (%) (Auto) 3 0-10 % Basophils (%) (Auto) 1 0-10 % Neutrophils # (Auto) 4.5 1.8-7.8 10^3/uL Lymphocytes # (Auto) 3.1 1.0-4.0 10^3/uL Monocytes # (Auto) 0.4 0.0-1.0 10^3/uL Eosinophils # (Auto) 0.2 0.0-0.3 10^3/uL Basophils # (Auto) 0.0 0.0-0.1 10^3/uL Immature Granulocyte # (Auto) 0.0 0.0-0.1 10^3/uL Sodium Level 139 135-145 MMOL/L Potassium Level 3.9 3.6-5.0 MMOL/L Chloride Level 102 98-107 MMOL/L Carbon Dioxide Level 23 21-32 MMOL/L Anion Gap 14 5-14 MMOL/L Blood Urea Nitrogen 15 7-18 MG/DL Creatinine 0.76 0.60-1.30 MG/DL Estimat Glomerular Filtration Rate 86 BUN/Creatinine Ratio 20 Glucose Level 124 H 70-105 MG/DL Calcium Level 9.5 8.5-10.1 MG/DL Corrected Calcium 9.4 8.5-10.1 MG/DL Magnesium Level 1.9 1.6-2.4 MG/DL Total Bilirubin 0.5 0.1-1.0 MG/DL Aspartate Amino Transf (AST/SGOT) 111 H 5-34 U/L Alanine Aminotransferase (ALT/SGPT) 65 H 0-55 U/L Alkaline Phosphatase 94 40-136 U/L Total Protein 7.6 6.4-8.2 GM/DL Albumin 4.1 3.2-4.5 GM/DL Lipase 39 8-78 U/L My Orders Orders - IZABELA RENDON MD Cbc With Automated Diff (05/15/21 21:11) Comprehensive Metabolic Panel (05/15/21 21:11) Lipase (05/15/21 21:11) Magnesium (05/15/21 21:11) Ua Culture If Indicated (05/15/21 21:11) Ed Iv/Invasive Line Start (05/15/21 21:11) Lactated Ringers (Lr 1000 Ml Iv Solution (05/15/21 21:15) Ondansetron Injection (Zofran Injectio (05/15/21 21:15) Metoclopramide Injection (Reglan Injecti (05/15/21 23:30) Famotidine Injection (Pepcid Injection) (05/15/21 23:30) Abdomen, Flat & Upright/Decub (05/15/21 23:29) Medications Given in ED Current Medications Medications Dose Ordered Sig/Neal Route Start Time Stop Time Status Last Admin Dose Admin Famotidine 20 mg ONCE ONCE IVP 05/15/21 23:30 05/15/21 23:31 DC 05/15/21 23:35 20 MG Lactated Ringer's 1,000 ml @ 0 mls/hr Q0M ONCE IV 05/15/21 21:15 05/15/21 21:16 DC 05/15/21 22:30 1,000 MLS/HR Metoclopramide HCl 5 mg ONCE ONCE IVP 05/15/21 23:30 05/15/21 23:31 DC 05/15/21 23:35 5 MG Ondansetron HCl 8 mg ONCE ONCE IVP 05/15/21 21:15 05/15/21 21:16 DC 05/15/21 22:30 8 MG Vital Signs/I&O 05/15/21 21:40 Pulse 80 Resp 20 B/P (MAP) Departure Impression Primary Impression: Right sided abdominal pain Additional Impression: Nausea & vomiting Qualified Codes: R11.2 - Nausea with vomiting, unspecified Disposition: HOME, SELF-CARE Condition: Improved Departure-Patient Inst. Decision time for Depature: 01:07 Referrals: CARMEN GIBBS MD (PCP/Family) Primary Care Physician Patient Instructions: Severe Abdominal Pain, Adult (DC) Add. 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 Continue medications as previously prescribed and add Pepcid (famotidine) 20 mg twice daily until otherwise instructed. Start with a noncarbonated clear liquid diet and gradually advance your diet with small quantities of bland food as tolerated. Call with questions or concerns. Return to care if you have worsening symptoms. All discharge instructions reviewed with patient and/or family. Voiced understanding. IZABELA RENDON MD May 16, 2021 01:08
[2021-05-16] MEDS ORDERED: HEParin (CENTRAL IV FLUSH) 500 UNIT/5 ML SYR ONE (01:12)
[2021-05-16 01:15] VITALS: BP 137/98
[2021-05-16] MEDS ORDERED: HEParin (CENTRAL IV FLUSH) 500 UNIT/5 ML SYR IV ONE (01:15)
== END 2021-05-16 01:15 | disposition home or self-care (01) ==
LOC: EDUNIT# 21:06 → ER 21:07
DX: R10.9 Unspecified abdominal pain (principal); R11.2 Nausea with vomiting, unspecified; J45.909 Unspecified asthma, uncomplicated; I10 Essential (primary) hypertension; K21.9 Gastro-esophageal reflux disease without esophagitis; F41.9 Anxiety disorder, unspecified; F32.9 Major depressive disorder, single episode, unspecified; G89.29 Other chronic pain; M54.9 Dorsalgia, unspecified; Z79.891 Long term (current) use of opiate analgesic; Z79.899 Other long term (current) drug therapy
CPT/HCPCS: 36415; 74019; 80053; 81000; 83690; 83735; 85025

== ENCOUNTER → 2021-05-30 | Outpatient (CLI) | payer MEDICARE, MEDICAID ==
[2021-05-30 10:30] VITALS: BP 143/85
== END ==
LOC: SDC 10:11
PROVIDERS: ATTEND Surgery
DX: Z45.2 Encounter for adjustment and management of vascular access device (principal)
CPT/HCPCS: 96523

== ENCOUNTER 2021-06-07 15:34 | Emergency (ER) | payer MEDICARE, MEDICAID ==
[~2021-06-07] VITALS: Ht 160 cm; Wt 115.0 kg
[2021-06-07 16:00] VITALS: BP 133/80
[2021-06-07] MEDS ORDERED: ONDANSETRON 4 MG/2 ML (SDV) Z0FRAN IVP ONE (18:00)
[2021-06-07] MEDS ORDERED: NS IV 1000 ML 1,000 ML IV SCH (18:00)
--- NOTE | 2021-06-07 18:03 | ED General ---
General Chief Complaint: Glucose Problems Stated Complaint: ELEVATED BS Nursing Triage Note: STATES SHE CALLED HER PRIMARY CARE BECAUSE HER BLOOD SUGAR WAS 300. WAS TOLD TO COME TO THE ER. (GEOVANI HERNANDEZ) History of Present Illness Date Seen by Provider: Jun 07, 2021 Time Seen by Provider: 17:30 Initial Comments 36-year old female reports checking her blood sugar at home twice with readings at 330 50. She called her PCP who referred her here. She reports mild nausea, no vomiting. She is taken Phenergan with no relief. She reports minimal solid or liquid and take for the last 24 hours. She denies any cough or fever. She has received her Covid vaccine and was tested in the last week which was negative. Timing/Duration: 24 Hours Severity: Mild Associated Systoms: No Chest Pain, No Cough, No Fever/Chills; Headaches, Loss of Appetite, Malaise, Nausea/Vomiting; No Shortness of Air, No Weakness (GEOVANI HERNANDEZ) Allergies and Home Medications Allergies Coded Allergies: fentanyl (Verified Allergy, Unknown, 10/16/18) meperidine (Verified Allergy, Unknown, 10/16/18) penicillin G (Verified Allergy, Unknown, 10/16/18) prochlorperazine (Verified Allergy, Unknown, 03/15/21) trimethobenzamide (Unverified Allergy, Unknown, 09/05/20) vancomycin (Verified Adverse Reaction, Intermediate, severe itching, 10/26/19) Patient Home Medication List Home Medication List Reviewed: Yes (GEOVANI HERNANDEZ) Acetaminophen (Tylenol Extra Strength) 500 Mg Tablet, 1,000 MG PO Q8H PRN for PAIN-MILD (1-4), (Reported) Entered as Reported by: EMILIO SHEPPARD on 10/26/19 0812 Atorvastatin Calcium (Atorvastatin Calcium) 20 Mg Tablet, 20 MG PO HS, (Reported) Entered as Reported by: LEX HOSKINS on 12/07/20 0916 Cyclobenzaprine HCl (Cyclobenzaprine HCl) 10 Mg Tablet, 10 MG PO Q8H PRN for SPASMS Prescribed by: MAKAYLA HAWKINS on 02/28/21 0942 Diphenhydramine HCl (Benadryl) 25 Mg Capsule, 25 MG PO HS PRN for SLEEP, (Reported) Entered as Reported by: EMILIO SHEPPARD on 10/26/19 0812 Hydrocodone/Acetaminophen (Hydrocodone-Acetamin 5-325 mg) 1 Each Tablet, 2 EACH PO Q6H PRN for PAIN-MILD (1-4), (Reported) Entered as Reported by: EMILIO SHEPPARD on 10/26/19 0812 Lipase/Protease/Amylase (Creon Dr 24,000 Units Capsule) 1 Each Capsule.dr, 2 CAP PO TIDWM, (Reported) Entered as Reported by: LEX HOSKINS on 12/07/20 0916 Metoclopramide HCl (Reglan) 5 Mg Tablet, 5 MG PO Q6H PRN for NAUSEA/VOMITING-3RD LINE Prescribed by: IZABELA MAC on 03/13/21 1301 Multivitamin (Multiple Vitamins) 1 Each Tablet, 1 EACH PO DAILY, (Reported) Entered as Reported by: CATHERINE BRENNER on 09/07/19 1404 Omeprazole (Omeprazole) 40 Mg Capsule.dr, 40 MG PO BID, (Reported) Entered as Reported by: LEX HOSKINS on 12/07/20 0916 Ondansetron (Ondansetron Odt) 8 Mg Tab.rapdis, 8 MG PO Q8H PRN for NAUSEA/VOMITING, (Reported) Entered as Reported by: EMILIO SHEPPARD on 10/26/19 0812 Promethazine HCl (Promethazine Tablet) 25 Mg Tablet, 25 MG PO Q6H PRN for NAUSEA/VOMITING, (Reported) Entered as Reported by: LEX HOSKINS on 12/07/20 0916 Ropinirole HCl (Ropinirole HCl) 4 Mg Tablet, 4 MG PO HS, (Reported) Entered as Reported by: LEX HOSKINS on 06/28/17 1010 Sertraline HCl (Sertraline HCl) 100 Mg Tablet, 100 MG PO HS, (Reported) Entered as Reported by: LEX HOSKINS on 12/07/20 0912 Sitagliptin Phos/Metformin HCl (Janumet Xr 50-1,000 mg Tablet) 1 Each Tbmp.24hr, 2 TAB-CAP PO DAILY@1900, (Reported) Entered as Reported by: LEX HOSKINS on 12/07/20 0916 Sulfamethoxazole/Trimethoprim (Bactrim Ds Tablet) 1 Each Tablet, 1 EACH PO BID Prescribed by: MAKAYLA HAWKINS on 03/19/21 1218 Review of Systems Review of Systems Constitutional: see HPI, malaise, weakness EENTM: see HPI, no symptoms reported Respiratory: no symptoms reported, see HPI Cardiovascular: no symptoms reported, see HPI Gastrointestinal: see HPI; No abdominal pain, No constipation, No diarrhea; loss of appetite, nausea; No vomiting (GEOVANI HERNANDEZ) All Other Systems Reviewed Negative Unless Noted: Yes (GEOVANI HERNANDEZ) Past Wpesymp-Gulvag-Wmghwf Hx Immunizations Up To Date Tetanus Booster (TDap): Less than 5yrs PED Vaccines UTD: No First/Initial COVID19 Vaccinat: none Second COVID19 Vaccination Alvaro: no Third COVID19 Vaccination Date: no (GEOVANI HERNANDEZ) Seasonal Allergies Seasonal Allergies: No (GEOVANI HERNANDEZ) Past Medical History Surgery/Hospitalization HX: several surgeries including 1 kidney removal, appendectomy, cammie., and power port placement Surgeries: Yes (hernia repair x2, knee scopes) Adenoidectomy, Appendectomy, Gallbladder, Hysterectomy, Nephrectomy, Orthopedic, Tonsillectomy Respiratory: Yes Asthma Currently Using CPAP: No Currently Using BIPAP: No Cardiac: Yes Hypertension Neurological: Yes Headaches /Migraines 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: Yes (HX ENDOMETRIOSIS ) 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: 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 Sexually Transmitted Disease: No HIV/AIDS: No Genitourinary: Yes UTI-Chronic Gastrointestinal: Yes (OBESITY) Abdominal Hernia, Gastroesophageal Reflux, Liver Disease/Jaundice, Obstructive Bowel, Pancreatitis, Polyps Musculoskeletal: Yes (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) Chronic Back Pain Endocrine: No (pancrease not working) HEENT: No Loss of Vision: Denies Hearing Impairment: Denies Cancer: Yes Kidney Did You Recieve Any Treatments: Yes What Type of Treatment Did You: Surgical Intervention Psychosocial: Yes Anxiety, Depression Integumentary: No Herpes Blood Disorders: No Adverse Reaction/Blood Tranf: No (N/A) (GEOVANI HERNANDEZ) Family Medical History Reviewed Nursing Family Hx (GEOVANI HERNANDEZ) Cardiovascular disease 19 FATHER Completed stroke 19 FATHER Diabetes mellitus 19 FATHER Hypercholesterolemia 19 FATHER 19 MOTHER Hypertension 19 FATHER 19 MOTHER Neoplasm 19 MOTHER Psychosocial problem 19 FATHER 19 MOTHER No Pertinent Family Hx, Cancer, Diabetes, Hypertension PSH: -RIGHT KNEE SCOPE X 5 -LEFT KNEE SCOPE X 2 -TONSILLECTOMY / ADENOIDECTOMY -APPENDECTOMY -CHOLECYSTECTOMY -NASAL FRACTURE REPAIR -COCCYX REMOVAL -LEFT NEPHRECTOMY FOR MALIGNANCY -LEFT MID ABDOMEN INCISIONAL HERNIA REPAIR -DRAINAGE OF ABDOMINAL WALL ABSCESS -MULTIPLE EGD'S AND COLONOSCOPIES--LAST ONE DONE HERE 10/26/19 -HYSTERECTOMY / BILATERAL SALPINGO-OOPHORECTOMY 2007 -06/23/20--RIGHT CHEST WALL/SHOULDER INJECTION FOR THORACIC OUTLET SYNDROME--DONE IN (GEOVANI HERNANDEZ) Physical Exam Vital Signs Vital Signs - First Documented 06/07/21 16:00 Temp 36.3 Pulse 92 Resp 16 B/P (MAP) 133/80 (97) Pulse Ox 97 O2 Delivery Room Air (IZABELA RENDON MD) Vital Signs Capillary Refill : Less Than 3 Seconds (GEOVANI HERNANDEZ) Height, Weight, BMI Height: 5'3.00" Weight: 246lbs. 0oz. 111.673986kk; 44.00 BMI Method:Stated General Appearance: No Apparent Distress, WD/WN HEENT: PERRL/EOMI, TMs Normal, Normal ENT Inspection, Pharynx Normal Neck: Full Range of Motion, Normal Inspection, Non Tender, Supple Respiratory: Chest Non Tender, Lungs Clear, Normal Breath Sounds Cardiovascular: Regular Rate, Rhythm, No Murmur, Normal Peripheral Pulses Gastrointestinal: Normal Bowel Sounds, Non Tender, Soft Extremity: Normal Capillary Refill, Normal Inspection, Normal Range of Motion, Pedal Edema (1+) Neurologic/Psychiatric: Alert, Oriented x3, No Motor/Sensory Deficits, Normal Mood/Affect Skin: Normal Color, Warm/Dry (GEOVANI HERNANDEZ) Progress/Results/Core Measures Suspected Sepsis SIRS Temperature: Pulse: 92 Respiratory Rate: 16 Laboratory Tests 06/07/21 16:07: White Blood Count 9.8 Blood Pressure 133 /80 Mean: 97 Laboratory Tests 06/07/21 16:07: Creatinine 0.82, Platelet Count 261, Total Bilirubin 0.3 (GEOVANI HERNANDEZ) Results/Orders Lab Results Laboratory Tests Test 06/07/21 16:07 06/07/21 18:00 Range/Units White Blood Count 9.8 4.3-11.0 10^3/uL Red Blood Count 4.53 3.80-5.11 10^6/uL Hemoglobin 12.2 11.5-16.0 g/dL Hematocrit 39 35-52 % Mean Corpuscular Volume 86 80-99 fL Mean Corpuscular Hemoglobin 27 25-34 pg Mean Corpuscular Hemoglobin Concent 31 L 32-36 g/dL Red Cell Distribution Width 13.4 10.0-14.5 % Platelet Count 261 130-400 10^3/uL Mean Platelet Volume 10.4 9.0-12.2 fL Immature Granulocyte % (Auto) 1 % Neutrophils (%) (Auto) 62 42-75 % Lymphocytes (%) (Auto) 30 12-44 % Monocytes (%) (Auto) 4 0-12 % Eosinophils (%) (Auto) 3 0-10 % Basophils (%) (Auto) 0 0-10 % Neutrophils # (Auto) 6.1 1.8-7.8 10^3/uL Lymphocytes # (Auto) 2.9 1.0-4.0 10^3/uL Monocytes # (Auto) 0.4 0.0-1.0 10^3/uL Eosinophils # (Auto) 0.3 0.0-0.3 10^3/uL Basophils # (Auto) 0.0 0.0-0.1 10^3/uL Immature Granulocyte # (Auto) 0.1 0.0-0.1 10^3/uL Sodium Level 137 135-145 MMOL/L Potassium Level 4.2 3.6-5.0 MMOL/L Chloride Level 101 98-107 MMOL/L Carbon Dioxide Level 25 21-32 MMOL/L Anion Gap 11 5-14 MMOL/L Blood Urea Nitrogen 14 7-18 MG/DL Creatinine 0.82 0.60-1.30 MG/DL Estimat Glomerular Filtration Rate 78 BUN/Creatinine Ratio 17 Glucose Level 182 H 70-105 MG/DL Glucometer 190 H 70-110 MG/DL Calcium Level 9.5 8.5-10.1 MG/DL Corrected Calcium 9.6 8.5-10.1 MG/DL Total Bilirubin 0.3 0.1-1.0 MG/DL Aspartate Amino Transf (AST/SGOT) 71 H 5-34 U/L Alanine Aminotransferase (ALT/SGPT) 48 0-55 U/L Alkaline Phosphatase 90 40-136 U/L Total Protein 7.2 6.4-8.2 GM/DL Albumin 3.9 3.2-4.5 GM/DL Urine Color YELLOW Urine Clarity CLEAR Urine pH 6.5 5-9 Urine Specific [place] <=1.005 1.016-1.022 Urine Protein NEGATIVE NEGATIVE Urine Glucose (UA) NEGATIVE NEGATIVE Urine Ketones NEGATIVE NEGATIVE Urine Nitrite NEGATIVE NEGATIVE Urine Bilirubin NEGATIVE NEGATIVE Urine Urobilinogen 0.2 < = 1.0 MG/DL Urine Leukocyte Esterase NEGATIVE NEGATIVE Urine RBC (Auto) NEGATIVE NEGATIVE Urine RBC NONE /HPF Urine WBC NONE /HPF Urine Crystals PRESENT H /LPF Urine Amorphous Sediment RARE HAMMAD URATES H /LPF Urine Bacteria TRACE /HPF Urine Casts NONE /LPF Urine Mucus NEGATIVE /LPF Urine Culture Indicated NO (IZABELA RENDON MD) Medications Given in ED Current Medications Medications Dose Ordered Sig/Neal Route Start Time Stop Time Status Last Admin Dose Admin Ondansetron HCl 8 mg ONCE ONCE IVP 06/07/21 18:00 06/07/21 18:01 DC 06/07/21 18:06 8 MG (IZABELA RENDON MD) Vital Signs/I&O 06/07/21 16:00 Temp 36.3 Pulse 92 Resp 16 B/P (MAP) 133/80 (97) Pulse Ox 97 O2 Delivery Room Air (IZABELA RENDON MD) Vital Signs/I&O Capillary Refill : Less Than 3 Seconds (GEOVANI HERNANDEZ) Blood Pressure Mean: 97 Point of Care Testing Finger Stick Blood Glucose: 190 (GEOVANI HERNANDEZ) Departure Impression Primary Impression: Hyperglycemia Additional Impression: Nausea Disposition: 01 HOME, SELF-CARE Condition: Stable Departure-Patient Inst. Decision time for Depature: 18:30 (GEOVANI HERNANDEZ) Referrals: CARMEN GIBBS MD (PCP/Family) Primary Care Physician Patient Instructions: Type 2 Diabetes (DC) Add. Discharge Instructions: Continue to take your normal medications as prescribed by your primary care pr ovider Eat small frequent meals. Follow-up with your primary care provider if symptoms are not improving or worsen. Return to the emergency department for new, urgent healthcare needs. All discharge instructions reviewed with patient and/or family. Voiced understanding. ATTENDING PHYSICIAN NOTE: I was physically present as attending physician in the emergency department during the care of this patient, but I was not directly involved in the decision making or delivery of care for this patient. (IZABELA RENDON MD) GEOVANI HERNANDEZ Jun 07, 2021 18:02 IZABELA RENDON MD Jun 07, 2021 22:27
[2021-06-07 18:07] LABS: BILIRUBIN,URINE NEGATIVE (NEGATIVE); CLARITY,URINE CLEAR; COLOR,URINE YELLOW; GLUCOSE, URINE (UA) NEGATIVE (NEGATIVE); KETONES,URINE NEGATIVE (NEGATIVE); LEUKOCYTE ESTERASE ,URINE NEGATIVE (NEGATIVE); NITRITE,URINE NEGATIVE (NEGATIVE); PH,URINE 6.5 (5-9); PROTEIN,URINE NEGATIVE (NEGATIVE)
[2021-06-07 18:29] LABS: BASOPHILS % (AUTO) 0 % (0-10); EOSINOPHILS # (AUTO) 0.3 10^3/uL (0.0-0.3); EOSINOPHILS % (AUTO) 3 % (0-10); HEMATOCRIT 39 % (35-52); HEMOGLOBIN 12.2 g/dL (11.5-16.0); LYMPHOCYTES # (AUTO) 2.9 10^3/uL (1.0-4.0); LYMPHOCYTES % (AUTO) 30 % (12-44); MEAN CORPUSCULAR HEMOGLOBIN 27 pg (25-34); MEAN CORPUSCULAR HGB CONC 31 g/dL (32-36); MEAN CORPUSCULAR VOLUME 86 fL (80-99); MEAN PLATELET VOLUME 10.4 fL (9.0-12.2); MONOCYTES # (AUTO) 0.4 10^3/uL (0.0-1.0); MONOCYTES % (AUTO) 4 % (0-12); NEUTROPHILS # (AUTO) 6.1 10^3/uL (1.8-7.8); NEUTROPHILS % (AUTO) 62 % (42-75); PLATELET COUNT 261 10^3/uL (130-400); WHITE BLOOD COUNT 9.8 10^3/uL (4.3-11.0)
[2021-06-07 18:32] LABS: AMORPHOUS SEDIMENT,UR RARE AMOR URATES /LPF; BACTERIA,URINE TRACE /HPF
[2021-06-07 18:33] LABS: ALBUMIN 3.9 GM/DL (3.2-4.5); POTASSIUM 4.2 MMOL/L (3.6-5.0)
[2021-06-07 18:35] LABS: CALCIUM 9.5 MG/DL (8.5-10.1)
[2021-06-07 18:36] LABS: TOTAL PROTEIN 7.2 GM/DL (6.4-8.2)
[2021-06-07 18:38] LABS: BILIRUBIN,TOTAL 0.3 MG/DL (0.1-1.0)
[2021-06-07 18:39] LABS: CREATININE SERUM 0.82 MG/DL (0.60-1.30)
== END 2021-06-07 19:05 | disposition home or self-care (01) ==
LOC: EDUNIT# 15:34 → ER 15:36
DX: R73.9 Hyperglycemia, unspecified (principal); R11.0 Nausea; J45.909 Unspecified asthma, uncomplicated; I10 Essential (primary) hypertension; K21.9 Gastro-esophageal reflux disease without esophagitis; F41.9 Anxiety disorder, unspecified; F32.9 Major depressive disorder, single episode, unspecified; E66.9 Obesity, unspecified; G89.29 Other chronic pain; M54.9 Dorsalgia, unspecified; Z68.41 Body mass index [BMI] 40.0-44.9, adult; Z79.891 Long term (current) use of opiate analgesic; Z79.899 Other long term (current) drug therapy
CPT/HCPCS: 36415; 80053; 81000; 82947; 85025

== ENCOUNTER 2021-06-14 22:14 | Emergency (ER) | payer MEDICARE, MEDICAID ==
--- NOTE | 2021-06-14 23:13 | ED General ---
General Chief Complaint: Glucose Problems Stated Complaint: HIGH BLOOD SUGAR Source of Information: Patient History of Present Illness Date Seen by Provider: Jun 14, 2021 Time Seen by Provider: 23:00 Initial Comments PT ARRIVES VIA POV FROM HOME C/O ELEVATED BLOOD SUGAR--STATES IT WAS "ALMOST 300" JUST PRIOR TO ARRIVAL STATES SHE CHECKS HER BLOOD SUGAR TWICE A DAY AND WAS "IN THE 200'S" AT 1800 TONIGHT TAKES JANUMET 2 TABS EVERY MORNING--DENIES ANY MISSED DOSES OR CHANGES IN DOSE S/MEDICATIONS PT STATES SHE HAS BEEN DRINKING ONLY WATER TODAY "NOTHING SWEET" STATES SHE HAS BEEN URINATING "THE NORMAL" WHICH SHE STATES IS "NOT VERY MUCH" "I DON'T HARDLY PEE" PT STATES SHE HAS HAD NAUSEA SINCE LAST NIGHT AND ALL DAY TODAY, VOMITED LAST NIGHT, NO VOMITING TODAY ( FREQUENT COMPLAINT) HAS ZOFRAN, PHENERGAN AND REGLAN FOR CHRONIC NAUSEA--TOOK 1 ZOFRAN LAST NIGHT, HAS NOT TAKEN ANYTHING TODAY FOR NAUSEA NO DIARRHEA NO ABDOMINAL PAIN NO KNOWN FEVER NO COUGH OR URI SYMPTOMS PT HAS NOT HAD COVID OR FLU VACCINES PT WITH A MULTITUDE OF VISITS HERE FOR VARIOUS COMPLAINTS--MANY PAIN COMPLAINTS, GI COMPLAINTS ( CHRONIC ABDOMINAL PAIN, CHRONIC NAUSEA/VOMITING) WELL DIABETES-RELATED COMPLAINTS. WAS LAST HERE 06/07/21 FOR ELEVATED BLOOD GLUCOSE OF 330 AT HOME. PT WAS TREATED AND RELEASED FROM ER. HAS NOT FOLLOWED UP WITH [facility] SINCE THEN STATES SHE WAS LAST SEEN ABOUT 2 WEEKS AGO BY ORE MINER BLASTING AT [facility] FOR ROUTINE VISIT STATES SHE HAS UPCOMING APPOINTMENTS WITH KIDNEY SPECIALIST, LIVER SPECIALIST AND WITH DR. MARROQUIN ( REGARDING HER PORT) PCP: [facility] Allergies and Home Medications Allergies Coded Allergies: fentanyl (Verified Allergy, Unknown, 10/16/18) meperidine (Verified Allergy, Unknown, 10/16/18) penicillin G (Verified Allergy, Unknown, 10/16/18) prochlorperazine (Verified Allergy, Unknown, 03/15/21) trimethobenzamide (Unverified Allergy, Unknown, 09/05/20) vancomycin (Verified Adverse Reaction, Intermediate, severe itching, 10/26/19) Patient Home Medication List Home Medication List Reviewed: Yes Acetaminophen (Tylenol Extra Strength) 500 Mg Tablet, 1,000 MG PO Q8H PRN for PAIN-MILD (1-4), (Reported) Entered as Reported by: EMILIO SHEPPARD on 10/26/19 0812 Atorvastatin Calcium (Atorvastatin Calcium) 20 Mg Tablet, 20 MG PO HS, (Reported) Entered as Reported by: LEX HOSKINS on 12/07/20 0916 Cyclobenzaprine HCl (Cyclobenzaprine HCl) 10 Mg Tablet, 10 MG PO Q8H PRN for SPASMS Prescribed by: MAKAYLA HAWKINS on 02/28/21 0942 Diphenhydramine HCl (Benadryl) 25 Mg Capsule, 25 MG PO HS PRN for SLEEP, ( Reported) Entered as Reported by: EMILIO SHEPPARD on 10/26/19 0812 Hydrocodone/Acetaminophen (Hydrocodone-Acetamin 5-325 mg) 1 Each Tablet, 2 EACH PO Q6H PRN for PAIN-MILD (1-4), (Reported) Entered as Reported by: EMILIO SHEPPARD on 10/26/19 08 Lipase/Protease/Amylase (Creon Dr 24,000 Units Capsule) 1 Each Capsule., 2 CAP PO TIDWM, (Reported) Entered as Reported by: LEX HOSKINS on 12/07/20 0916 Metoclopramide HCl (Reglan) 5 Mg Tablet, 5 MG PO Q6H PRN for NAUSEA/VOMITING-3RD LINE Prescribed by: IZABELA MAC on 03/13/21 1301 Multivitamin (Multiple Vitamins) 1 Each Tablet, 1 EACH PO DAILY, (Reported) Entered as Reported by: CATHERINE BRENNER on 09/07/19 1404 Omeprazole (Omeprazole) 40 Mg Capsule., 40 MG PO BID, (Reported) Entered as Reported by: LEX HOSKINS on 12/07/20 0916 Ondansetron (Ondansetron Odt) 8 Mg Tab.rapdis, 8 MG PO Q8H PRN for NAUSEA/VOMITING, (Reported) Entered as Reported by: EMILIO SHEPPARD on 10/26/19 0812 Promethazine HCl (Promethazine Tablet) 25 Mg Tablet, 25 MG PO Q6H PRN for NAUS EA/VOMITING, (Reported) Entered as Reported by: LEX HOSKINS on 12/07/20 0916 Ropinirole HCl (Ropinirole HCl) 4 Mg Tablet, 4 MG PO HS, (Reported) Entered as Reported by: LEX HOSKINS on 06/28/17 1010 Sertraline HCl (Sertraline HCl) 100 Mg Tablet, 100 MG PO HS, (Reported) Entered as Reported by: LEX HOSKINS on 12/07/20 0912 Sitagliptin Phos/Metformin HCl (Janumet Xr 50-1,000 mg Tablet) 1 Each Tbmp.24hr, 2 TAB-CAP PO DAILY@1900, (Reported) Entered as Reported by: LEX HOSKINS on 12/07/20 0916 Sulfamethoxazole/Trimethoprim (Bactrim Ds Tablet) 1 Each Tablet, 1 EACH PO BID Prescribed by: MAKAYLA HAWKINS on 03/19/21 1218 Review of Systems Review of Systems Constitutional: no symptoms reported EENTM: no symptoms reported Respiratory: no symptoms reported Cardiovascular: no symptoms reported Gastrointestinal: see HPI Genitourinary: see HPI; No dysuria Musculoskeletal: no symptoms reported Skin: no symptoms reported Psychiatric/Neurological: No Symptoms Reported Hematologic/Lymphatic: No Symptoms Reported Immunological/Allergic: no symptoms reported Past Gckkipy-Ihwgrk-Gabcrn Hx Patient Social History Tobacco Use?: Yes Tobacco type used: Cigarettes Smoking Status: Former Smoker Substance use?: No Alcohol Use?: No Immunizations Up To Date Tetanus Booster (TDap): Less than 5yrs PED Vaccines UTD: No First/Initial COVID19 Vaccinat: none Second COVID19 Vaccination Alvaro: no Third COVID19 Vaccination Date: no Seasonal Allergies Seasonal Allergies: No Past Medical History Surgery/Hospitalization HX: several surgeries including 1 kidney removal, appendectomy, cammie., and power port placement Surgeries: Yes (hernia repair x2, knee scopes) Adenoidectomy, Appendectomy, Gallbladder, Hysterectomy, Nephrectomy, Orthopedic, Tonsillectomy Respiratory: Yes Asthma Currently Using CPAP: No Currently Using BIPAP: No Cardiac: Yes Hypertension Neurological: Yes Headaches /Migraines 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: Yes (HX ENDOMETRIOSIS ) 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: 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 Sexually Transmitted Disease: No HIV/AIDS: No Genitourinary: Yes (S/P NEPHRECTOMY) UTI-Chronic Gastrointestinal: Yes (OBESITY) Abdominal Hernia, Gastroesophageal Reflux, Liver Disease/Jaundice, Obstructive Bowel, Pancreatitis, Polyps Musculoskeletal: Yes (RIGHT THORACIC OUTLET SYNDROME-S/P INJECTION 01/07/21) Chronic Back Pain Endocrine: Yes (OBESITY) Diabetes, Non-Insulin dep HEENT: No Loss of Vision: Denies Hearing Impairment: Denies Cancer: Yes Kidney Did You Recieve Any Treatments: Yes What Type of Treatment Did You: Surgical Intervention Psychosocial: Yes Anxiety, Depression Integumentary: No Herpes Blood Disorders: No Adverse Reaction/Blood Tranf: No (N/A) Family Medical History Cardiovascular disease 19 FATHER Completed stroke 19 FATHER Diabetes mellitus 19 FATHER Hypercholesterolemia 19 FATHER 19 MOTHER Hypertension 19 FATHER 19 MOTHER Neoplasm 19 MOTHER Psychosocial problem 19 FATHER 19 MOTHER No Pertinent Family Hx, Cancer, Diabetes, Hypertension PSH: -RIGHT KNEE SCOPE X 5 -LEFT KNEE SCOPE X 2 -TONSILLECTOMY / ADENOIDECTOMY -APPENDECTOMY -CHOLECYSTECTOMY -NASAL FRACTURE REPAIR -COCCYX REMOVAL -LEFT NEPHRECTOMY FOR MALIGNANCY -LEFT MID ABDOMEN INCISIONAL HERNIA REPAIR -DRAINAGE OF ABDOMINAL WALL ABSCESS -MULTIPLE EGD'S AND COLONOSCOPIES--LAST ONE DONE HERE 10/26/19 -HYSTERECTOMY / BILATERAL SALPINGO-OOPHORECTOMY 2007 -06/23/20--RIGHT CHEST WALL/SHOULDER INJECTION FOR THORACIC OUTLET SYNDROME--DONE IN Physical Exam Vital Signs Vital Signs - First Documented 06/14/21 23:00 Temp 36.9 Pulse 88 Resp 16 B/P (MAP) 146/84 (104) Pulse Ox 98 O2 Delivery Room Air Capillary Refill : Height, Weight, BMI Height: 5'3.00" Weight: 246lbs. 0oz. 111.462582fl; 44.00 BMI Method:Stated General Appearance: No Apparent Distress, WD/WN, Obese (MORBIDLY ), Other (DOES NOT APPEAR ILL OR TO BE IN ANY DISCOMFORT OR DISTRESS) HEENT: PERRL/EOMI Neck: Normal Inspection Respiratory: Normal Breath Sounds, No Accessory Muscle Use, No Respiratory Distress Cardiovascular: Regular Rate, Rhythm, No Murmur Gastrointestinal: Non Tender, Soft Back: No CVA Tenderness Extremity: Normal Inspection Neurologic/Psychiatric: Alert, Oriented x3, No Motor/Sensory Deficits, Normal Mood/Affect, dean of education II-XII Norm as Tested Skin: Normal Color, Warm/Dry Progress/Results/Core Measures Suspected Sepsis SIRS Temperature: Pulse: Respiratory Rate: Laboratory Tests 06/14/21 23:23: White Blood Count 8.9 Blood Pressure / Mean: Laboratory Tests 06/14/21 23:23: Creatinine 0.89, Platelet Count 254, Total Bilirubin 0.3 Results/Orders Lab Results Laboratory Tests Test 06/14/21 23:02 06/14/21 23:10 06/14/21 23:23 06/14/21 23:35 Range/Units Glucometer 244 H 70-110 MG/DL Influenza Type A (RT-PCR) Not Detected Not Detecte Influenza Type B (RT-PCR) Not Detected Not Detecte SARS-CoV-2 RNA (RT-PCR) Not Detected Not Detecte White Blood Count 8.9 4.3-11.0 10^3/uL Red Blood Count 4.42 3.80-5.11 10^6/uL Hemoglobin 12.0 11.5-16.0 g/dL Hematocrit 38 35-52 % Mean Corpuscular Volume 86 80-99 fL Mean Corpuscular Hemoglobin 27 25-34 pg Mean Corpuscular Hemoglobin Concent 32 32-36 g/dL Red Cell Distribution Width 13.6 10.0-14.5 % Platelet Count 254 130-400 10^3/uL Mean Platelet Volume 9.7 9.0-12.2 fL Immature Granulocyte % (Auto) 0 % Neutrophils (%) (Auto) 58 42-75 % Lymphocytes (%) (Auto) 34 12-44 % Monocytes (%) (Auto) 4 0-12 % Eosinophils (%) (Auto) 3 0-10 % Basophils (%) (Auto) 0 0-10 % Neutrophils # (Auto) 5.2 1.8-7.8 10^3/uL Lymphocytes # (Auto) 3.0 1.0-4.0 10^3/uL Monocytes # (Auto) 0.4 0.0-1.0 10^3/uL Eosinophils # (Auto) 0.3 0.0-0.3 10^3/uL Basophils # (Auto) 0.0 0.0-0.1 10^3/uL Immature Granulocyte # (Auto) 0.0 0.0-0.1 10^3/uL Sodium Level 139 135-145 MMOL/L Potassium Level 3.8 3.6-5.0 MMOL/L Chloride Level 102 98-107 MMOL/L Carbon Dioxide Level 23 21-32 MMOL/L Anion Gap 14 5-14 MMOL/L Blood Urea Nitrogen 17 7-18 MG/DL Creatinine 0.89 0.60-1.30 MG/DL Estimat Glomerular Filtration Rate 71 BUN/Creatinine Ratio 19 Glucose Level 238 H 70-105 MG/DL Calcium Level 9.2 8.5-10.1 MG/DL Corrected Calcium 9.2 8.5-10.1 MG/DL Total Bilirubin 0.3 0.1-1.0 MG/DL Aspartate Amino Transf (AST/SGOT) 50 H 5-34 U/L Alanine Aminotransferase (ALT/SGPT) 41 0-55 U/L Alkaline Phosphatase 82 40-136 U/L Total Protein 7.3 6.4-8.2 GM/DL Albumin 4.0 3.2-4.5 GM/DL Beta-Hydroxybutyrate (Chem panel) 0.09 0.00-0.27 MMOL/L Serum Test, Qualitative NEGATIVE NEGATIVE Urine Color YELLOW Urine Clarity CLEAR Urine pH 6.0 5-9 Urine Specific [place] >=1.030 1.016-1.022 Urine Protein NEGATIVE NEGATIVE Urine Glucose (UA) NEGATIVE NEGATIVE Urine Ketones NEGATIVE NEGATIVE Urine Nitrite NEGATIVE NEGATIVE Urine Bilirubin NEGATIVE NEGATIVE Urine Urobilinogen 0.2 < = 1.0 MG/DL Urine Leukocyte Esterase NEGATIVE NEGATIVE Urine RBC (Auto) NEGATIVE NEGATIVE Urine RBC NONE /HPF Urine WBC NONE /HPF Urine Squamous Epithelial Cells 0-2 /HPF Urine Crystals NONE /LPF Urine Bacteria TRACE /HPF Urine Casts NONE /LPF Urine Mucus NEGATIVE /LPF Urine Culture Indicated NO Test 06/15/21 01:05 Range/Units Glucometer 218 H 70-110 MG/DL My Orders Orders - YAN CHAPARRO DO Accucheck Stat ONCE (06/14/21 23:00) Monitor-Rhythm Ecg Trace Only (06/14/21 23:00) Cbc With Automated Diff (06/14/21 23:00) Comprehensive Metabolic Panel (06/14/21 23:00) Hcg,Qualitative Serum (06/14/21 23:00) Ua Culture If Indicated (06/14/21 23:00) Accucheck Stat ONCE (06/14/21 23:00) Beta Hydroxybutyrate (06/14/21 23:00) Covid 19 Inhouse Test (06/14/21 23:03) Ed Iv/Invasive Line Start (06/14/21 23:03) Ns Iv 1000 Ml (Sodium Chloride 0.9%) (06/14/21 23:15) Influenza A And B By Pcr (06/14/21 23:03) Isolation Central Supply Req (06/14/21 23:03) Accucheck Stat ONCE (06/15/21 00:31) Vital Signs/I&O 06/14/21 06/15/21 23:00 01:10 Temp 36.9 36.9 Pulse 88 88 Resp 16 16 B/P (MAP) 146/84 (104) 158/73 Pulse Ox 98 98 O2 Delivery Room Air Room Air Capillary Refill : Point of Care Testing Finger Stick Blood Glucose: 244 Blood Glucose Action Taken: DR. CHAPARRO NOTIFIED Progress Note : Progress Note ACCUCHECK 244 ON ARRIVAL GIVEN IV FLUIDS REPEAT ACCUCHECK 218 PT HAD NO COMPLAINTS FOR ENTIRE ER STAY COVID-19 TESTING DONE PPE WORN STRONGLY ENCOURAGED PT TO HAVE COVID AND FLU VACCINES SOON POSSIBLE Departure Impression Primary Impression: Hyperglycemia due to diabetes mellitus Additional Impressions: CHRONIC NAUSEA AND VOMITING Poorly controlled diabetes mellitus Disposition: 01 HOME, SELF-CARE Condition: Stable Departure-Patient Inst. Decision time for Depature: 00:23 Referrals: CARMEN GIBBS MD (PCP/Family) Primary Care Physician Patient Instructions: Nausea and Vomiting, Adult (DC), Type 2 Diabetes (DC) Add. Discharge Instructions: CONTINUE YOUR MEDICATIONS PRESCRIBED FOLLOW UP WITH YOUR DR THIS WEEK FOR FURTHER CARE KEEP YOUR SCHEDULED APPOINTMENTS All discharge instructions reviewed with patient and/or family. Voiced under standing. YAN CHAPARRO DO Jun 14, 2021 23:13
[2021-06-14] MEDS ORDERED: NS IV 1000 ML 1,000 ML IV SCH (23:15)
[2021-06-14 23:36] LABS: BASOPHILS % (AUTO) 0 % (0-10); EOSINOPHILS # (AUTO) 0.3 10^3/uL (0.0-0.3); EOSINOPHILS % (AUTO) 3 % (0-10); HEMATOCRIT 38 % (35-52); LYMPHOCYTES % (AUTO) 34 % (12-44); MEAN CORPUSCULAR HEMOGLOBIN 27 pg (25-34); MEAN CORPUSCULAR HGB CONC 32 g/dL (32-36); MEAN CORPUSCULAR VOLUME 86 fL (80-99); MEAN PLATELET VOLUME 9.7 fL (9.0-12.2); MONOCYTES # (AUTO) 0.4 10^3/uL (0.0-1.0); MONOCYTES % (AUTO) 4 % (0-12); NEUTROPHILS # (AUTO) 5.2 10^3/uL (1.8-7.8); NEUTROPHILS % (AUTO) 58 % (42-75); PLATELET COUNT 254 10^3/uL (130-400); WHITE BLOOD COUNT 8.9 10^3/uL (4.3-11.0)
[2021-06-14 23:44] LABS: BILIRUBIN,URINE NEGATIVE (NEGATIVE); CLARITY,URINE CLEAR; COLOR,URINE YELLOW; GLUCOSE, URINE (UA) NEGATIVE (NEGATIVE); KETONES,URINE NEGATIVE (NEGATIVE); LEUKOCYTE ESTERASE ,URINE NEGATIVE (NEGATIVE); NITRITE,URINE NEGATIVE (NEGATIVE); PROTEIN,URINE NEGATIVE (NEGATIVE)
[2021-06-14 23:58] LABS: BACTERIA,URINE TRACE /HPF; SQUAMOUS EPITHELIAL CELL,UR 0-2 /HPF
[2021-06-15 00:04] LABS: POTASSIUM 3.8 MMOL/L (3.6-5.0)
[2021-06-15 00:05] LABS: CALCIUM 9.2 MG/DL (8.5-10.1)
[2021-06-15 00:06] LABS: TOTAL PROTEIN 7.3 GM/DL (6.4-8.2)
[2021-06-15 00:08] LABS: BILIRUBIN,TOTAL 0.3 MG/DL (0.1-1.0)
[2021-06-15 00:10] LABS: CREATININE SERUM 0.89 MG/DL (0.60-1.30)
[2021-06-15 01:10] VITALS: BP 158/73
== END 2021-06-15 01:13 | disposition home or self-care (01) ==
LOC: EDUNIT# 22:14 → ER 22:16
DX: E11.65 Type 2 diabetes mellitus with hyperglycemia (principal); J45.909 Unspecified asthma, uncomplicated; I10 Essential (primary) hypertension; E66.01 Morbid (severe) obesity due to excess calories; F41.9 Anxiety disorder, unspecified; F32.9 Major depressive disorder, single episode, unspecified; K21.9 Gastro-esophageal reflux disease without esophagitis; G89.29 Other chronic pain; M54.9 Dorsalgia, unspecified; Z68.41 Body mass index [BMI] 40.0-44.9, adult; Z20.822 Contact with and (suspected) exposure to COVID-19; Z87.891 Personal history of nicotine dependence; Z79.899 Other long term (current) drug therapy; Z79.891 Long term (current) use of opiate analgesic
CPT/HCPCS: 36415; 80053; 81000; 82010; 82947; 84703; 85025; 87636; 93041

== ENCOUNTER → 2021-06-21 | Outpatient (CLI) | payer MEDICARE, MEDICAID ==
[~2021-06-21] MED LIST changes: +LACTATED RINGERS 1,000 ML IV SCH
[2021-06-21 13:55] VITALS: BP 118/81
== END ==
LOC: SDC 11:10
PROVIDERS: ATTEND Surgery
DX: Z45.2 Encounter for adjustment and management of vascular access device (principal)
CPT/HCPCS: 96360; 96523

== ENCOUNTER → 2021-07-05 | Outpatient (CLI) | payer MEDICARE, MEDICAID ==
[~2021-07-05] MED LIST changes: +BARIUM SUSPENSION 2.1% (VANILLA SILQ) 450 ML PO ONE; +CATHETER FLUSH 10 ML SYR IV PRN; +HOLD METFORMIN - RECEIVED CONTRAST 20 ML VIAL IV SCH; +IOHEXOL 350 MG/ML 100 ML (OMNIPAQUE 350) VIAL IV ONE; -LACTATED RINGERS 1,000 ML IV SCH; +NS 100 ML (IVPB) BAG IV ONE
--- NOTE | 2021-07-05 12:58 | Diagnostic Imaging Report ---
PROCEDURE: CT chest with contrast, CT abdomen and pelvis with and without contrast. TECHNIQUE: Pre and post intravenous contrast axial imaging of the abdomen and pelvis and post contrast axial imaging of the chest were performed. Auto Exposure Controls were utilized during the CT exam to meet ALARA standards for radiation dose reduction. INDICATION: Left renal malignancy. COMPARISON: Exam is compared with abdominopelvic CT 08/19/2020. FINDINGS: CHEST: A juxtapleural nodule at the left base in axial plane measures 13 mm AP and in the coronal reconstruction views measures a maximal cephalocaudal height of 7 mm. This is of uncertain etiology. Metabolic PET/CT may be of benefit to exclude hypermetabolism. No pulmonary parenchymal mass. No axillary, hilar, or mediastinal lymphadenopathy. There is no evidence for pneumonia. No thoracic effusion. ABDOMEN AND PELVIS: Left upper quadrant splenule associated with an otherwise nonfocal and normal spleen is present. There is fatty infiltration of the liver with no liver mass. The gallbladder is surgically absent. The solitary right kidney is unobstructed, nonfocal, and nonacute. There are postsurgical changes of left nephrectomy with no mass or fluid collection in the operative bed. The bilateral adrenal glands remain intact and unremarkable. There is previous appendectomy. There is no bowel, biliary, or urinary tract obstruction. No acute or suspect bony pathology. IMPRESSION: 1. Discoid morphology juxtapleural nodule in the left base is present of uncertain significance and etiology. Either short-term follow-up versus consideration for metabolic PET/CT may be of benefit. 2. There was no other potential metastatic finding or acute abnormalities found. Dictated by: Dictated on workstation # [id number]
== END ==
LOC: RAD 08:49
PROVIDERS: ATTEND Internal Medicine Hematology & Oncology
DX: C64.2 Malignant neoplasm of left kidney, except renal pelvis (principal); R91.1 Solitary pulmonary nodule
CPT/HCPCS: 71260; 74178

== ENCOUNTER 2021-07-10 13:24 | Outpatient (RCR) | payer MEDICARE, MEDICAID ==
[~2021-07-10 13:24] MED LIST changes: -BARIUM SUSPENSION 2.1% (VANILLA SILQ) 450 ML PO ONE; -CATHETER FLUSH 10 ML SYR IV PRN; -HOLD METFORMIN - RECEIVED CONTRAST 20 ML VIAL IV SCH; -IOHEXOL 350 MG/ML 100 ML (OMNIPAQUE 350) VIAL IV ONE; -NS 100 ML (IVPB) BAG IV ONE
[2021-07-10 13:42] LABS: BASOPHILS % (AUTO) 0 % (0-10); EOSINOPHILS # (AUTO) 0.3 10^3/uL (0.0-0.3); EOSINOPHILS % (AUTO) 4 % (0-10); HEMATOCRIT 39 % (35-52); HEMOGLOBIN 12.2 g/dL (11.5-16.0); LYMPHOCYTES # (AUTO) 2.1 10^3/uL (1.0-4.0); LYMPHOCYTES % (AUTO) 29 % (12-44); MEAN CORPUSCULAR HEMOGLOBIN 27 pg (25-34); MEAN CORPUSCULAR HGB CONC 32 g/dL (32-36); MEAN CORPUSCULAR VOLUME 84 fL (80-99); MEAN PLATELET VOLUME 9.6 fL (9.0-12.2); MONOCYTES # (AUTO) 0.4 10^3/uL (0.0-1.0); MONOCYTES % (AUTO) 5 % (0-12); NEUTROPHILS # (AUTO) 4.5 10^3/uL (1.8-7.8); NEUTROPHILS % (AUTO) 62 % (42-75); PLATELET COUNT 253 10^3/uL (130-400); WHITE BLOOD COUNT 7.2 10^3/uL (4.3-11.0)
[2021-07-10 14:12] LABS: BILIRUBIN,TOTAL 0.3 MG/DL (0.1-1.0); CALCIUM 9.5 MG/DL (8.5-10.1); CREATININE SERUM 0.83 MG/DL (0.60-1.30); POTASSIUM 3.9 MMOL/L (3.6-5.0); TOTAL PROTEIN 7.5 GM/DL (6.4-8.2)
== END 2021-07-17 | disposition home or self-care (01) ==
LOC: ONC 13:24
PROVIDERS: ATTEND Internal Medicine Hematology & Oncology
DX: Z45.2 Encounter for adjustment and management of vascular access device (principal); E78.5 Hyperlipidemia, unspecified; I10 Essential (primary) hypertension; E66.9 Obesity, unspecified
CPT/HCPCS: 80053; 83615; 85025; 96523; 99213

== ENCOUNTER → 2021-07-17 | Outpatient (CLI) | payer MEDICARE, MEDICAID ==
--- NOTE | 2021-07-17 12:20 | Diagnostic Imaging Report ---
INDICATION: Malignant neoplasm of the kidney. Patient had recent abnormal CT chest study demonstrating a nodular density in the left lower lobe. The study is performed for further evaluation. Serum blood glucose level at time of injection is 129 mg/dL. Patient was administered 12.2 mCi F-18 FDG intravenously in the right hand and PET imaging was performed from the top of skull to mid thighs. Noncontrast CT was also performed for attenuation correction and anatomic correlation. No prior PET/CT studies are available for comparison. Comparison is made with the recent CT study from 07/05/2021. There is symmetric activity throughout the brain. Soft tissues of the neck are unremarkable. No mediastinal or hilar hypermetabolism is identified. No activity is seen within the nodular density in the left lower lobe seen on recent CT. No FDG avidity is noted. This is likely benign. There is physiologic activity throughout the gastrointestinal and genitourinary tracts of abdomen and pelvis. The left kidney is surgically absent. No suspicious regions of hypermetabolism in abdomen or pelvis are identified. IMPRESSION: Unremarkable PET/CT study. The small nodular density left lower lobe does not demonstrate FDG avidity and is likely benign. Dictated by: Dictated on workstation # [id number]
== END ==
LOC: RAD 08:09
PROVIDERS: ATTEND Internal Medicine Hematology & Oncology
DX: C64.9 Malignant neoplasm of unspecified kidney, except renal pelvis (principal); R91.8 Other nonspecific abnormal finding of lung field

== ENCOUNTER 2021-07-20 07:27 | Outpatient (CLI) | payer MEDICARE, MEDICAID ==
[~2021-07-20] VITALS: Ht 160 cm; Wt 115.0 kg
[2021-07-21] MEDS ORDERED: [UNRECOGNIZED DRUG - REMARK] (13:06)
[2021-07-24] MEDS ORDERED: DOXY100T2 PO ×2 (11:39)
[2021-07-24] MEDS ORDERED: CNC1KV IM ×2 (11:45)
[2021-07-24] MEDS ORDERED: ESTR1TAB27 PO ×2 (11:45)
[2021-07-24] MEDS ORDERED: DEXT30SU5 PO ×2 (11:45)
[2021-07-24] MEDS ORDERED: ALB0.5V INH ×2 (11:45)
[2021-07-24] MEDS ORDERED: GLBR2.5T PO ×2 (11:45)
[2021-07-24] MEDS ORDERED: BENZ100C18 PO ×2 (11:45)
== END 2021-07-24 08:15 ==
LOC: PREOP 07:27
PROVIDERS: ATTEND Surgery
DX: Z01.812 Encounter for preprocedural laboratory examination (principal); I87.2 Venous insufficiency (chronic) (peripheral); Z20.822 Contact with and (suspected) exposure to COVID-19
CPT/HCPCS: 87635

== ENCOUNTER 2021-07-24 10:27 | Day surgery (SDC) | payer MEDICARE, MEDICAID ==
[~2021-07-24] VITALS: Ht 160 cm; Wt 122.3 kg
[2021-07-24] VITALS (8 sets, daily range): BP systolic 82–141; BP diastolic 56–83
[~2021-07-24 10:27] MED LIST changes: +[UNRECOGNIZED DRUG - REMARK]
[2021-07-24] MEDS ORDERED: CLINDAMYCIN 600 MG/50 ML IVPB 50 ML IV ONE (10:45)
[2021-07-24] MEDS ORDERED: LACTATED RINGERS 1,000 ML IV PRN (11:15)
[2021-07-24] MEDS: LACTATED RINGERS 1,000 ML IV PRN ×2 (11:26→13:34)
[2021-07-24] MEDS ORDERED: DOXY100T2 PO ×2 (11:39)
[2021-07-24] MEDS ORDERED: CNC1KV IM ×2 (11:45)
[2021-07-24] MEDS ORDERED: DEXT30SU5 PO ×2 (11:45)
[2021-07-24] MEDS ORDERED: ALB0.5V INH ×2 (11:45)
[2021-07-24] MEDS ORDERED: ESTR1TAB27 PO ×2 (11:45)
[2021-07-24] MEDS ORDERED: GLBR2.5T PO ×2 (11:45)
[2021-07-24] MEDS ORDERED: BENZ100C18 PO ×2 (11:45)
[2021-07-24] MEDS ORDERED: PROPOFOL INJECTION 50 ML IV ONE (12:15)
[2021-07-24] MEDS ORDERED: MIDAZOLAM 2 MG/2 ML (VERSED) VIAL ONE (12:15)
[2021-07-24] MEDS ORDERED: LIDOCAINE/EPI 1%-1:200,000 (XYLOCAINE) 30 ML VIAL ONE (12:20)
[2021-07-24] MEDS ORDERED: diphenhydrAMINE 50 MG/ML INJ (BENADRYL) ONE (14:11)
[2021-07-24] MEDS ORDERED: ONDANSETRON 4 MG/2 ML (SDV) Z0FRAN ONE (14:13)
[2021-07-24] MEDS ORDERED: LIDOCAINE PF 2% 5 ML (XYLOCAINE) VIAL ONE (14:14)
[2021-07-24] MEDS ORDERED: KETAMINE 50 MG/5 ML SYRINGE ONE (14:17)
--- NOTE | 2021-07-24 14:27 | Progress Note-Pre Operative ---
Pre-Operative Progress Note H&P Reviewed The H&P was reviewed, patient examined and no changes noted. Time Seen by Provider: 12:06 Date H&P Reviewed: Jul 24, 2021 Time H&P Reviewed: 12:06 Pre-Operative Diagnosis: Venous insufficiency LINDSEY MARROQUIN DO Jul 24, 2021 14:27
--- NOTE | 2021-07-24 14:29 | Progress Note-Post Operative ---
Post-Operative Progess Note Surgeon (s)/Director Health (s) Surgeon LINDSEY MARROQUIN DO Director Health: SUNIL Stuart Pre-Operative Diagnosis Venous insufficiency Post-Operative Diagnosis same Procedure & Operative Findings Date of Procedure 07/24/21 Procedure Performed/Findings PROCEDURE: Removal of madhav-cath COMPLICATIONS: None. INDICATIONS: The patient is a 36 year-old female who had a port previously placed. Patient is ok to have port removed. The patient was explained risk and benefits of the procedure and wished to proceed with procedure. Consent was signed on the chart. PROCEDURE: The patient was taken to the operating suite and was prepped and draped in sterile fashion. A surgical pause was performed. Local anesthetic was infiltrated to the area around the port. A number 15 blade scalpel was used to make an incision on top of old incision. Cautery was used to dissect down to the port which was then grasped and then dissected around. The catheter was removed in its entirety. The port was then able to be dissected out of the pocket and elevated. The wound was then irrigated with copious amounts of irrigation. Hemostasis had been achieved. The skin was then closed using 4-0 Vicryl in a running fashion. The area was then washed and dried and Skin Affix placed over the incision. The patient tolerated the procedure well without complication and was taken to recovery room in stable condition. Anesthesia Type IV sedation by PLANT OPERATIONS COORDINATOR Estimated Blood Loss Estimated blood loss (mL): scant Specimens/Packing Specimens Removed port, not sent to LINDSEY Deleon DO Jul 24, 2021 14:29
--- NOTE | 2021-07-24 14:32 | Discharge Inst-Surgical ---
Discharge Inst-Surgical Depart Medication/Instructions New, Converted or Re-Newed RX: Other (Use home meds) Patient Instructions Follow up Appt: Make appointment for 1 week. [phone] Instructions: May shower in 24 hours, no tub bath or soaking. Use incentive spirometer at home as directed. No Smoking Skin/Wound Care: May remove bandages in am. You need to leave the Dermabond on incision it will fall off on it's own. Symptoms to Report: Appetite Changes, Extremity Discoloration, Numbness/Tingling, Swelling Increased, Bleeding Excessive, Eyesight Changes, Pain Increased, Urine Color Change, Constipation(Persistent), Fever over 101 degree F, Pain/Pressure in chest, Urinating Difficulty, Cough Up/Vomit Blood, Heart Beat Irreg/Pounding, P ain/Pressure in jaw, Cramps in feet or legs, Lightheadedness, Pain/Pressure in shoulder, Diarrhea(Persistent), Memory Changes Suddenly, Questions/Concerns, Weight gain consecutive days, Dizziness/Fainting, Nausea/Vomiting, Shortness of Breath, Weight gain over 2 pounds If questions or concerns contact your physician Or seek help at emergency department. Activity Activity Instructions: Avoid Stress to Incision Driving Instructions: No Driving/Refer to Diet Discharge Diet: No Restrictions Diet After 24 Hours: Clear Liquid if Nauseous If Any Problems/Questions/Issu: Contact Your Physician, Go to Emergency Room Skin/Wound Care Infection Signs and Symptoms: Increased Redness, Foul Odor of Wound, Increased Drainage, Skin Itchy or Has a Rash, Increased Swelling, Temperature Above 101 F Bathing Instructions: Shower Stitches/[place]/Dermabond Dis: LINDSEY Funes DO Jul 24, 2021 14:32
[2021-07-24] MEDS ORDERED: HYDROmorphone 2 MG/ML VIAL (DILAUDID) IV ONE (14:45)
[2021-07-24] MEDS ORDERED: ONDANSETRON 4 MG/2 ML (SDV) Z0FRAN IVP PRN (14:45)
[2021-07-24] MEDS ORDERED: HYDROmorphone 2 MG/ML VIAL (DILAUDID) ONE (14:48)
--- NOTE | 2021-07-25 08:57 | Anesthesia-General Post-Op ---
MAC Patient Condition Mental Status/LOC: Same as Preop Cardiovascular: Satisfactory Nausea/Vomiting: Absent Respiratory: Satisfactory Pain: Controlled Complications: Absent Post Op Complications Complications None Follow Up Care/Instructions Patient Instructions None needed. Anesthesiology Discharge Order Discharge Order Patient is doing well, no complaints, stable vital signs, no apparent adverse anesthesia problems. No complications reported per nursing. TERESSA DEMPSEY CRNA Jul 25, 2021 08:57
== END 2021-07-24 16:13 | disposition home or self-care (01) ==
LOC: SDC 10:27
PROVIDERS: ATTEND Surgery
DX: I87.2 Venous insufficiency (chronic) (peripheral) (principal); K21.9 Gastro-esophageal reflux disease without esophagitis; I10 Essential (primary) hypertension; E11.9 Type 2 diabetes mellitus without complications; E66.01 Morbid (severe) obesity due to excess calories; E78.5 Hyperlipidemia, unspecified; J45.909 Unspecified asthma, uncomplicated; F41.9 Anxiety disorder, unspecified; Z68.42 Body mass index [BMI] 45.0-49.9, adult; Z79.899 Other long term (current) drug therapy; Z90.49 Acquired absence of other specified parts of digestive tract; Z79.84 Long term (current) use of oral hypoglycemic drugs; Z90.89 Acquired absence of other organs; Z90.710 Acquired absence of both cervix and uterus; Z83.3 Family history of diabetes mellitus; Z80.3 Family history of malignant neoplasm of breast; Z80.0 Family history of malignant neoplasm of digestive organs
CPT/HCPCS: 87081

== ENCOUNTER 2021-07-28 09:19 | Outpatient (RCR) | payer MEDICARE, MEDICAID ==
[~2021-07-28 09:19] MED LIST changes: +ALB0.5V INH; +CNC1KV IM; +DEXT30SU5 PO; +DOXY100T2 PO; +GLBR2.5T PO
== END 2021-08-14 | disposition home or self-care (01) ==
LOC: ONC 09:19
PROVIDERS: ATTEND Internal Medicine Hematology & Oncology
DX: Z45.2 Encounter for adjustment and management of vascular access device (principal); E78.5 Hyperlipidemia, unspecified; I10 Essential (primary) hypertension; E66.9 Obesity, unspecified
CPT/HCPCS: 99213

== ENCOUNTER 2021-08-01 19:26 | Emergency (ER) | payer MEDICARE, MEDICAID ==
[~2021-08-01] VITALS: Ht 160 cm; Wt 120.2 kg
[2021-08-01] MEDS ORDERED: NS IV 1000 ML 1,000 ML IV SCH (20:30)
[2021-08-01] MEDS ORDERED: ONDANSETRON 4 MG/2 ML (SDV) Z0FRAN IVP ONE (20:30)
--- NOTE | 2021-08-01 20:44 | Diagnostic Imaging Report ---
EXAMINATION: Chest 1 view HISTORY: N/V COMPARISON: 06/23/2020 FINDINGS: Heart size and pulmonary vasculature are normal. The lungs are clear without consolidation, pleural effusion, or pneumothorax. The osseous structures are intact. IMPRESSION: 1. No acute radiographic abnormality in the chest. Dictated by: Dictated on workstation # [id number]
[2021-08-01 20:49] LABS: BASOPHILS % (AUTO) 1 % (0-10); EOSINOPHILS # (AUTO) 0.3 10^3/uL (0.0-0.3); EOSINOPHILS % (AUTO) 4 % (0-10); HEMATOCRIT 42 % (35-52); HEMOGLOBIN 13.1 g/dL (11.5-16.0); LYMPHOCYTES # (AUTO) 2.7 10^3/uL (1.0-4.0); LYMPHOCYTES % (AUTO) 36 % (12-44); MEAN CORPUSCULAR HEMOGLOBIN 26 pg (25-34); MEAN CORPUSCULAR HGB CONC 31 g/dL (32-36); MEAN CORPUSCULAR VOLUME 84 fL (80-99); MEAN PLATELET VOLUME 9.3 fL (9.0-12.2); MONOCYTES # (AUTO) 0.4 10^3/uL (0.0-1.0); MONOCYTES % (AUTO) 5 % (0-12); NEUTROPHILS % (AUTO) 54 % (42-75); PLATELET COUNT 278 10^3/uL (130-400); WHITE BLOOD COUNT 7.4 10^3/uL (4.3-11.0)
[2021-08-01 20:51] LABS: BILIRUBIN,URINE NEGATIVE (NEGATIVE); CLARITY,URINE CLEAR; COLOR,URINE YELLOW; GLUCOSE, URINE (UA) NEGATIVE (NEGATIVE); KETONES,URINE NEGATIVE (NEGATIVE); LEUKOCYTE ESTERASE ,URINE NEGATIVE (NEGATIVE); NITRITE,URINE NEGATIVE (NEGATIVE); PH,URINE 7.5 (5-9); PROTEIN,URINE NEGATIVE (NEGATIVE)
[2021-08-01 21:04] LABS: ERYTHROCYTE SEDIMENTATION RATE 34 MM/HR (0-20)
--- NOTE | 2021-08-01 21:04 | ED GI ---
General Chief Complaint: Abdominal/GI Problems Stated Complaint: STOMACH PAIN, VOMITING Nursing Triage Note: Pt c/o abd pain with n/v. States she was tested for c diff and it was neg. Has been on antibiotics since march fro sinus infection. Source of Information: Patient History of Present Illness Date Seen by Provider: Aug 01, 2021 Time Seen by Provider: 20:15 Initial Comments PT ARRIVES VIA POV FROM HOME C/O NAUSEA/VOMITING/DIARRHEA AND ABDOMINAL PAIN C/O DECREASED URINE OUTPUT--STATES SHE HAS NOT URINATED MUCH TODAY--ONLY TWICE AND SMALL AMOUNTS, STATES "NORMALLY I GO A WHOLE LOT, MULTIPLE TIMES A DAY" PT STATES "IT FEELS LIKE MY PANCREAS" PT HAS BEEN ON ANTIBIOTICS SINCE MARCH FOR SINUS INFECTION--HAS AN APPOINTMENT WITH DR. FERMIN, ENT, IN AUGUST PT DENIES FEVER HAS BEEN HAVING DIARRHEA X 2 WEEKS--STATES "TOO MANY TIMES TO COUNT" EVERY DAY NO BLACK/BLOODY/TARRY STOOLS STATES THE NAUSEA AND VOMITING STARTED TODAY--STATES SHE HAS VOMITED 10 TIMES T LUISA, NO HEMATEMESIS OR COFFEE-GROUND EMESIS. STATES SHE CANNOT KEEP ANYTHING DOWN TODAY--DOES NOT TAKE ANY OF HER MEDICATIONS UNTIL EVENING, AND HAS NOT ATTEMPTED TO TAKE ANY OF THEM TONIGHT THESE ARE FREQUENT COMPLAINTS, AND PT HAS PHENERGAN, ZOFRAN AND REGLAN AT HOME--TOOK 1 ZOFRAN AND 1 PHENERGAN TODAY, AND TOOK 1 REGLAN YESTERDAY PT DOES HAVE A HISTORY OF PANCREATITIS, AND SEES A PANCREAS SPECIALIST AT , LAST VISIT WAS IN MAY. PT HAD HER PORT REMOVED FROM LEFT CHEST ON 07/24/[address] MARROQUIN, IT WAS NON-FUNCTIONING. Allergies and Home Medications Allergies Coded Allergies: fentanyl (Verified Allergy, Unknown, 10/16/18) meperidine (Verified Allergy, Unknown, 10/16/18) penicillin G (Verified Allergy, Unknown, 10/16/18) prochlorperazine (Verified Allergy, Unknown, 03/15/21) trimethobenzamide (Unverified Allergy, Unknown, 09/05/20) vancomycin (Verified Adverse Reaction, Intermediate, severe itching, 10/26/19) Patient Home Medication List Acetaminophen (Tylenol Extra Strength) 500 Mg Tablet, 1,000 MG PO Q8H PRN for PAIN-MILD (1-4), (Reported) Entered as Reported by: EMILIO SHEPPARD on 10/26/19 0812 Albuterol Sulfate (Albuterol Sulfate) 2.5 Mg/0.5 Ml Vial.neb, 2.5 MG INH Q4H, (Reported) Entered as Reported by: GRIFFIN ORTEGA on 07/24/21 1145 Atorvastatin Calcium (Atorvastatin Calcium) 20 Mg Tablet, 20 MG PO HS, (Rep orted) Entered as Reported by: LEX HOSKINS on 12/07/20 0916 Benzonatate (Tessalon Perles) 100 Mg Capsule, 100 MG PO DAILY, (Reported) Entered as Reported by: GRIFFIN ORTEGA on 07/24/21 1145 Cyanocobalamin (Cyanocobalamin Injection) 1,000 Mcg/Ml Inj, 1,000 MCG IM MONTHLY, (Reported) Entered as Reported by: GRIFFIN ORTEGA on 07/24/21 1145 Cyclobenzaprine HCl (Cyclobenzaprine HCl) 10 Mg Tablet, 10 MG PO Q8H PRN for SPA SMS Prescribed by: MAKAYLA HAWKINS on 02/28/21 0942 Dextromethorphan Polistirex (Delsym) 30 Mg/5 Ml Petty.er.12h, 10 ML PO BID, (Reported) Entered as Reported by: GRIFFIN ORTEGA on 07/24/21 1145 Diphenhydramine HCl (Benadryl) 25 Mg Capsule, 25 MG PO HS PRN for SLEEP, (Reported) Entered as Reported by: EMILIO SHEPPARD on 10/26/19 0812 Doxycycline Hyclate (Doxycycline Hyclate) 100 Mg Tablet, 100 MG PO BID, (Reported) Entered as Reported by: GRIFFIN ORTEGA on 07/24/21 1139 Estradiol (Estrace Tablet) 1 Mg Tablet, 1 MG PO DAILY, (Reported) Entered as Reported by: GRIFFIN ORTEGA on 07/24/21 1145 Glyburide (Glyburide) 2.5 Mg Tablet, 2.5 MG PO DAILY, (Reported) Entered as Reported by: GRIFFIN ORTEGA on 07/24/21 1145 Hydrocodone/Acetaminophen (Hydrocodone-Acetamin 5-325 mg) 1 Each Tablet, 2 EACH PO Q6H PRN for PAIN-MILD (1-4), (Reported) Entered as Reported by: EMILIO SHEPPARD on 10/26/19 0812 Metoclopramide HCl (Reglan) 5 Mg Tablet, 5 MG PO Q6H PRN for NAUSEA/VOMITING-3RD LINE Prescribed by: IZABELA MAC on 03/13/21 1301 Ondansetron (Ondansetron Odt) 8 Mg Tab.rapdis, 8 MG PO Q8H PRN for NAUSEA/VOMITING, (Reported) Entered as Reported by: EMILIO SHEPPARD on 10/26/19 0812 Promethazine HCl (Promethazine Tablet) 25 Mg Tablet, 25 MG PO Q6H PRN for NAUSEA/VOMITING, (Reported) Entered as Reported by: LEX HOSKINS on 12/07/20 0916 Ropinirole HCl (Ropinirole HCl) 4 Mg Tablet, 4 MG PO HS, (Reported) Entered as Reported by: LEX HOSKINS on 06/28/17 1010 Sertraline HCl (Sertraline HCl) 100 Mg Tablet, 100 MG PO HS, (Reported) Entered as Reported by: LEX HOSKINS on 12/07/20 0912 Sitagliptin Phos/Metformin HCl (Janumet Xr 50-1,000 mg Tablet) 1 Each Tbmp.24hr, 2 TAB-CAP PO DAILY@1900, (Reported) Entered as Reported by: LEX HOSKINS on 12/07/20 0916 Past Rmcsgsa-Qepehi-Qeeenz Hx Patient Social History Tobacco Use?: No Substance use?: No Alcohol Use?: No Immunizations Up To Date Tetanus Booster (TDap): Less than 5yrs PED Vaccines UTD: No Influenza Vaccine Up-to-Date: No; Not Current First/Initial COVID19 Vaccinat: none Second COVID19 Vaccination Alvaro: none Third COVID19 Vaccination Date: none Seasonal Allergies Seasonal Allergies: No Past Medical History Surgery/Hospitalization HX: several surgeries including 1 kidney removal, appendectomy, cammie., and power port placement Surgeries: Yes (hernia repair x2, knee scopes, port placement) Adenoidectomy, Appendectomy, Gallbladder, Hysterectomy, Nephrectomy, Orthopedic, Tonsillectomy Respiratory: Yes Asthma Currently Using CPAP: No Currently Using BIPAP: No Cardiac: No Hypertension Neurological: Yes Headaches /Migraines 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: Yes (HX ENDOMETRIOSIS ) 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: 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 [employer] History: Hysterectomy Sexually Transmitted Disease: No HIV/AIDS: No Genitourinary: Yes (S/P NEPHRECTOMY) UTI-Chronic Gastrointestinal: Yes (OBESITY) Abdominal Hernia, Gastroesophageal Reflux, Liver Disease/Jaundice, Obstructive Bowel, Pancreatitis, Polyps Musculoskeletal: Yes (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) Chronic Back Pain Endocrine: Yes (OBESITY) Diabetes, Non-Insulin dep HEENT: No Loss of Vision: Denies Hearing Impairment: Denies Cancer: Yes Kidney Did You Recieve Any Treatments: Yes What Type of Treatment Did You: Surgical Intervention Psychosocial: Yes Anxiety, Depression Integumentary: No Herpes Blood Disorders: No Adverse Reaction/Blood Tranf: No (N/A) Family Medical History Cardiovascular disease 19 FATHER Completed stroke 19 FATHER Diabetes mellitus 19 FATHER Hypercholesterolemia 19 FATHER 19 MOTHER Hypertension 19 FATHER 19 MOTHER Neoplasm 19 MOTHER Psychosocial problem 19 FATHER 19 MOTHER No Pertinent Family Hx, Cancer, Diabetes, Hypertension PSH: -RIGHT KNEE SCOPE X 5 -LEFT KNEE SCOPE X 2 -TONSILLECTOMY / ADENOIDECTOMY -APPENDECTOMY -CHOLECYSTECTOMY -NASAL FRACTURE REPAIR -COCCYX REMOVAL -LEFT NEPHRECTOMY FOR MALIGNANCY -LEFT MID ABDOMEN INCISIONAL HERNIA REPAIR -DRAINAGE OF ABDOMINAL WALL ABSCESS -MULTIPLE EGD'S AND COLONOSCOPIES--LAST ONE DONE HERE 10/26/19 -HYSTERECTOMY / BILATERAL SALPINGO-OOPHORECTOMY 2007 -06/23/20--RIGHT CHEST WALL/SHOULDER INJECTION FOR THORACIC OUTLET SYNDROME--DONE IN Physical Exam Vital Signs Vital Signs - First Documented 08/01/21 20:15 Temp 36.1 Pulse 87 Resp 17 B/P (MAP) 148/94 (112) O2 Delivery Room Air Capillary Refill : Height/Weight/BMI Height: 5'3.00" Weight: 246lbs. 0oz. [id number]; 46.00 BMI Method:Stated Progress/Results/Core Measures Results/Orders Lab Results Laboratory Tests Test 08/01/21 20:34 08/01/21 20:36 08/01/21 20:40 08/01/21 20:44 Range/Units Influenza Type A (RT-PCR) Not Detected Not Detecte Influenza Type B (RT-PCR) Not Detected Not Detecte SARS-CoV-2 RNA (RT-PCR) Not Detected Not Detecte Glucometer 100 70-110 MG/DL White Blood Count 7.4 4.3-11.0 10^3/uL Red Blood Count 4.96 3.80-5.11 10^6/uL Hemoglobin 13.1 11.5-16.0 g/dL Hematocrit 42 35-52 % Mean Corpuscular Volume 84 80-99 fL Mean Corpuscular Hemoglobin 26 25-34 pg Mean Corpuscular Hemoglobin Concent 31 L 32-36 g/dL Red Cell Distribution Width 13.4 10.0-14.5 % Platelet Count 278 130-400 10^3/uL Mean Platelet Volume 9.3 9.0-12.2 fL Immature Granulocyte % (Auto) 0 % Neutrophils (%) (Auto) 54 42-75 % Lymphocytes (%) (Auto) 36 12-44 % Monocytes (%) (Auto) 5 0-12 % Eosinophils (%) (Auto) 4 0-10 % Basophils (%) (Auto) 1 0-10 % Neutrophils # (Auto) 4.0 1.8-7.8 10^3/uL Lymphocytes # (Auto) 2.7 1.0-4.0 10^3/uL Monocytes # (Auto) 0.4 0.0-1.0 10^3/uL Eosinophils # (Auto) 0.3 0.0-0.3 10^3/uL Basophils # (Auto) 0.0 0.0-0.1 10^3/uL Immature Granulocyte # (Auto) 0.0 0.0-0.1 10^3/uL Erythrocyte Sedimentation Rate 34 H 0-20 MM/HR Sodium Level 140 135-145 MMOL/L Potassium Level 4.0 3.6-5.0 MMOL/L Chloride Level 105 98-107 MMOL/L Carbon Dioxide Level 22 21-32 MMOL/L Anion Gap 13 5-14 MMOL/L Blood Urea Nitrogen 15 7-18 MG/DL Creatinine 1.06 0.60-1.30 MG/DL Estimat Glomerular Filtration Rate 69 BUN/Creatinine Ratio 14 Glucose Level 105 70-105 MG/DL Calcium Level 9.8 8.5-10.1 MG/DL Corrected Calcium 9.6 8.5-10.1 MG/DL Magnesium Level 1.9 1.6-2.4 MG/DL Total Bilirubin 0.4 0.1-1.0 MG/DL Aspartate Amino Transf (AST/SGOT) 76 H 5-34 U/L Alanine Aminotransferase (ALT/SGPT) 62 H 0-55 U/L Alkaline Phosphatase 75 40-136 U/L Lactate Dehydrogenase 216 125-220 U/L C-Reactive Protein High Sensitivity 0.62 H 0.00-0.50 MG/DL Total Protein 7.9 6.4-8.2 GM/DL Albumin 4.3 3.2-4.5 GM/DL Amylase Level 94 25-125 U/L Lipase 155 H 8-78 U/L Beta-Hydroxybutyrate (Chem panel) 0.08 0.00-0.27 MMOL/L Procalcitonin 0.05 <0.10 NG/ML Serum Test, Qualitative NEGATIVE NEGATIVE Urine Color YELLOW Urine Clarity CLEAR Urine pH 7.5 5-9 Urine Specific [place] 1.020 1.016-1.022 Urine Protein NEGATIVE NEGATIVE Urine Glucose (UA) NEGATIVE NEGATIVE Urine Ketones NEGATIVE NEGATIVE Urine Nitrite NEGATIVE NEGATIVE Urine Bilirubin NEGATIVE NEGATIVE Urine Urobilinogen 0.2 < = 1.0 MG/DL Urine Leukocyte Esterase NEGATIVE NEGATIVE Urine RBC (Auto) NEGATIVE NEGATIVE Urine RBC RARE /HPF Urine WBC 0-2 /HPF Urine Squamous Epithelial Cells 2-5 /HPF Urine Crystals NONE /LPF Urine Bacteria TRACE /HPF Urine Casts NONE /LPF Urine Mucus NEGATIVE /LPF Urine Culture Indicated NO My Orders Orders - YAN CHAPARRO DO Ed Iv/Invasive Line Start (08/01/21 20:17) Monitor-Rhythm Ecg Trace Only (08/01/21 20:17) Amylase (08/01/21 20:17) Cbc With Automated Diff (08/01/21 20:17) Comprehensive Metabolic Panel (08/01/21 20:17) Lipase (08/01/21 20:17) Magnesium (08/01/21 20:17) Ua Culture If Indicated (08/01/21 20:17) Ondansetron Injection (Zofran Injectio (08/01/21 20:30) Ed Iv/Invasive Line Start (08/01/21 20:17) Ns Iv 1000 Ml (Sodium Chloride 0.9%) (08/01/21 20:30) Procalcitonin (Pct) (08/01/21 20:17) Hs C Reactive Protein (08/01/21 20:17) Erythrocyte Sedimentation Rate (08/01/21 20:17) LDH (08/01/21 20:17) Chest 1 View, Ap/Pa Only (08/01/21 20:17) Hcg,Qualitative Serum (08/01/21 20:17) Covid 19 Inhouse Test (08/01/21 20:17) Influenza A And B By Pcr (08/01/21 20:17) Isolation Central Supply Req (08/01/21 20:17) Accucheck Stat ONCE (08/01/21 20:17) Beta Hydroxybutyrate (08/01/21 20:17) Ct Abdomen/Pelvis Wo (08/01/21 22:05) Promethazine Injection (Phenergan Injec (08/01/21 22:15) Medications Given in ED Current Medications Medications Dose Ordered Sig/Neal Route Start Time Stop Time Status Last Admin Dose Admin Ondansetron HCl 8 mg ONCE ONCE IVP 08/01/21 20:30 08/01/21 20:31 DC 08/01/21 20:45 8 MG Vital Signs/I&O 08/01/21 20:15 Temp 36.1 Pulse 87 Resp 17 B/P (MAP) 148/94 (112) O2 Delivery Room Air Blood Pressure Mean: 112 FSBG Bedside Testing Finger Stick Blood Glucose: 100 Progress Progress Note : Progress Note GIVEN IV FLUIDS, ZOFRAN AND PHENERGAN NO VOMITING OR DIARRHEA DURING ENTIRE ER STAY Diagnostic Imaging Comments CXR--PER RADIOLOGIST REPORT AT 2100 FINDINGS: Heart size and pulmonary vasculature are normal. The lungs are clear without consolidation, pleural effusion, or pneumothorax. The osseous structures are intact. IMPRESSION: 1. No acute radiographic abnormality in the chest. Reviewed: Reviewed by Me Departure Impression Primary Impression: NAUSEA/VOMITING/DIARRHEA AND ABDOMINAL PAIN Disposition: HOME, SELF-CARE Condition: Improved Departure-Patient Inst. Decision time for Depature: 23:00 Referrals: CARMEN GIBBS MD (PCP/Family) Primary Care Physician Patient Instructions: Nausea and Vomiting, Adult (DC) Add. Discharge Instructions: CLEAR LIQUIDS--WATER, BROTH, JELLO, GATORADE BRATS DIET--BANANAS, RICE, APPLESAUCE, TOAST, SALTINES TAKE ZOFRAN EVERY 4 HOURS NEEDED, TAKE PHENERGAN EVERY 4-6 HOURS NEEDED, TAKE REGLAN EVERY 6 HOURS NEEDED FOLLOW UP WITH YOUR DR THIS WEEK FOR FURTHER CARE All discharge instructions reviewed with patient and/or family. Voiced un derstanding. YAN CHAPARRO DO Aug 01, 2021 21:04
[2021-08-01 21:07] LABS: BACTERIA,URINE TRACE /HPF; RBC,URINE RARE /HPF; WBC,URINE 0-2 /HPF
[2021-08-01 21:07] LABS: ALBUMIN 4.3 GM/DL (3.2-4.5)
[2021-08-01 21:09] LABS: CALCIUM 9.8 MG/DL (8.5-10.1)
[2021-08-01 21:10] LABS: TOTAL PROTEIN 7.9 GM/DL (6.4-8.2)
[2021-08-01 21:12] LABS: BILIRUBIN,TOTAL 0.4 MG/DL (0.1-1.0)
[2021-08-01 21:14] LABS: CREATININE SERUM 1.06 MG/DL (0.60-1.30)
[2021-08-01 21:17] LABS: MAGNESIUM 1.9 MG/DL (1.6-2.4)
[2021-08-01] MEDS ORDERED: PROMETHAZINE INJ 25 MG/ML (PHENERGAN) AMP IVP ONE (22:15)
--- NOTE | 2021-08-01 22:40 | Diagnostic Imaging Report ---
EXAMINATION: CT abdomen and pelvis without contrast. TECHNIQUE: Multiple contiguous axial images were obtained through the abdomen and pelvis without the use of intravenous contrast. All CT scans use one or more of the following dose optimizing techniques: automated exposure control, MA and/or KvP adjustment based on patient size and exam type or iterative reconstruction. HISTORY: PAIN, N/V/D COMPARISON: 07/05/2021 FINDINGS: Lung bases: The lung bases are clear. Solid organs: The liver is normal. The gallbladder is surgically absent. There is no biliary ductal dilation. Pancreas is normal. Spleen is normal. Adrenal glands are normal. The left kidney is surgically absent. The right kidney is unremarkable without hydronephrosis. Bowel: The stomach and small bowel are normal without obstruction. The colon is unremarkable. The appendix is nonvisualized and may be surgically absent. Peritoneum: There is no intraperitoneal free fluid or free air. No suspicious lymphadenopathy. Vasculature: Normal without aneurysm. Musculoskeletal: No suspicious osseous lesion or compression fracture. Pelvis: The uterus is surgically absent. No adnexal mass. The urinary bladder is normal. IMPRESSION: 1. No acute abnormality within the abdomen or pelvis. Dictated by: Dictated on workstation # [id number]
[2021-08-01 23:35] VITALS: BP 150/86
== END 2021-08-01 23:35 | disposition home or self-care (01) ==
LOC: EDUNIT# 19:26 → ER 19:28
DX: R11.2 Nausea with vomiting, unspecified (principal); R19.7 Diarrhea, unspecified; R10.9 Unspecified abdominal pain; J45.909 Unspecified asthma, uncomplicated; I10 Essential (primary) hypertension; E66.9 Obesity, unspecified; E11.9 Type 2 diabetes mellitus without complications; F41.9 Anxiety disorder, unspecified; F32.9 Major depressive disorder, single episode, unspecified; G89.29 Other chronic pain; M54.9 Dorsalgia, unspecified; Z20.822 Contact with and (suspected) exposure to COVID-19; Z68.42 Body mass index [BMI] 45.0-49.9, adult; Z79.899 Other long term (current) drug therapy; Z79.891 Long term (current) use of opiate analgesic
CPT/HCPCS: 36415; 71045; 74176; 80053; 81000; 82010; 82150; 82947; 83615; 83690; 83735; 84145; 84703; 85025; 85652; 86141; 87636

== ENCOUNTER 2021-08-09 21:26 | Emergency (ER) | payer MEDICARE, MEDICAID ==
[~2021-08-09] VITALS: Ht 160 cm; Wt 120.2 kg
[2021-08-09 21:35] VITALS: BP 167/111
[2021-08-09] MEDS ORDERED: LACTATED RINGERS 1,000 ML IV ONE ×2 (21:45→22:45)
[2021-08-09 21:56] LABS: BASOPHILS % (AUTO) 0 % (0-10); EOSINOPHILS # (AUTO) 0.4 10^3/uL (0.0-0.3); EOSINOPHILS % (AUTO) 4 % (0-10); HEMATOCRIT 42 % (35-52); HEMOGLOBIN 13.3 g/dL (11.5-16.0); LYMPHOCYTES # (AUTO) 3.6 10^3/uL (1.0-4.0); LYMPHOCYTES % (AUTO) 37 % (12-44); MEAN CORPUSCULAR HEMOGLOBIN 27 pg (25-34); MEAN CORPUSCULAR HGB CONC 32 g/dL (32-36); MEAN CORPUSCULAR VOLUME 83 fL (80-99); MEAN PLATELET VOLUME 9.5 fL (9.0-12.2); MONOCYTES # (AUTO) 0.4 10^3/uL (0.0-1.0); MONOCYTES % (AUTO) 5 % (0-12); NEUTROPHILS # (AUTO) 5.1 10^3/uL (1.8-7.8); NEUTROPHILS % (AUTO) 53 % (42-75); PLATELET COUNT 318 10^3/uL (130-400); WHITE BLOOD COUNT 9.6 10^3/uL (4.3-11.0)
[2021-08-09 22:06] LABS: ALBUMIN 4.4 GM/DL (3.2-4.5); POTASSIUM 4.5 MMOL/L (3.6-5.0)
[2021-08-09 22:09] LABS: TOTAL PROTEIN 8.6 GM/DL (6.4-8.2)
[2021-08-09 22:10] LABS: BILIRUBIN,TOTAL 0.4 MG/DL (0.1-1.0)
[2021-08-09 22:12] LABS: CREATININE SERUM 0.86 MG/DL (0.60-1.30)
[2021-08-09] MEDS ORDERED: PROMETHAZINE INJ 25 MG/ML (PHENERGAN) AMP IVP ONE (22:30)
[2021-08-09] MEDS ORDERED: ONDANSETRON 4 MG/2 ML (SDV) Z0FRAN IVP ONE (22:30)
[2021-08-09] MEDS ORDERED: diphenhydrAMINE 50 MG/ML INJ (BENADRYL) IVP ONE (22:30)
--- NOTE | 2021-08-09 22:34 | ED GI ---
General Chief Complaint: Abdominal/GI Problems Stated Complaint: ABD PAIN / VOMITING Nursing Triage Note: pt arrives per POV w/ c/o nausea and abdominal pain. Pt also states that she has been having vomiting and diarrhea for 2 weeks. Source of Information: Patient Exam Limitations: No Limitations History of Present Illness Date Seen by Provider: Aug 09, 2021 Time Seen by Provider: 21:39 Initial Comments Patient presents ER by private conveyance with chief complaint of 3 to 4-week bout of nausea vomiting malaise and diarrhea. She did complete a couple courses of antibiotics lasting 14 days for a sinus infection. She is seen by Dr. Jules, ENT and he thinks she has an anatomical reason that may require some surgical addressing. She has a follow-up appointment with the nurse practitioner GI doctor at [facility] in a week or 2. [address] Gibbs 3 weeks ago for these problems. She is been using Reglan, Phenergan and Zofran 8 mg. She does not feel they are helping. She feels the past couple days she is not really keep anything down. She is not using anything for diarrhea. No fevers or chills. No cough or shortness of air. She has been tested multiple times for Covid and flu. She has chronic cyclical vomiting syndromes. She does not use cannabis or recreational drugs. She does not drink alcohol. She has had pancreatitis in the past. She is not having abdominal pain. She is not using probiotics she is eating yogurt with her medications. She states she is only urinated once today Allergies and Home Medications Allergies Coded Allergies: fentanyl (Verified Allergy, Unknown, 10/16/18) meperidine (Verified Allergy, Unknown, 10/16/18) penicillin G (Verified Allergy, Unknown, 10/16/18) prochlorperazine (Verified Allergy, Unknown, 03/15/21) trimethobenzamide (Unverified Allergy, Unknown, 09/05/20) vancomycin (Verified Adverse Reaction, Intermediate, severe itching, 10/25) Patient Home Medication List Home Medication List Reviewed: Yes Acetaminophen (Tylenol Extra Strength) 500 Mg Tablet, 1,000 MG PO Q8H PRN for PAIN-MILD (1-4), (Reported) Entered as Reported by: EMILIO SHEPPARD on 10/26/19 0812 Albuterol Sulfate (Albuterol Sulfate) 2.5 Mg/0.5 Ml Vial.neb, 2.5 MG INH Q4H, (Reported) Entered as Reported by: GRIFFIN ORTEGA on 07/24/21 1145 Atorvastatin Calcium (Atorvastatin Calcium) 20 Mg Tablet, 20 MG PO HS, (Reported) Entered as Reported by: LEX HOSKINS on 12/07/20 0916 Benzonatate (Tessalon Perles) 100 Mg Capsule, 100 MG PO DAILY, (Reported) Entered as Reported by: GRIFFIN ORTEGA on 07/24/21 1145 Cyanocobalamin (Cyanocobalamin Injection) 1,000 Mcg/Ml Inj, 1,000 MCG IM MONTHLY, (Reported) Entered as Reported by: GRIFFIN ORTEGA on 07/24/21 1145 Cyclobenzaprine HCl (Cyclobenzaprine HCl) 10 Mg Tablet, 10 MG PO Q8H PRN for SPASMS Prescribed by: MAKAYLA HAWKINS on 02/28/21 0942 Dextromethorphan Polistirex (Delsym) 30 Mg/5 Ml Petty.er.12h, 10 ML PO BID, (Reported) Entered as Reported by: GRIFFIN ORTEGA on 07/24/21 1145 Diphenhydramine HCl (Benadryl) 25 Mg Capsule, 25 MG PO HS PRN for SLEEP, (Reported) Entered as Reported by: EMILIO SHEPPARD on 10/26/19 0812 Doxycycline Hyclate (Doxycycline Hyclate) 100 Mg Tablet, 100 MG PO BID, (Reported) Entered as Reported by: GRIFFIN ORTEGA on 07/24/21 1139 Estradiol (Estrace Tablet) 1 Mg Tablet, 1 MG PO DAILY, (Reported) Entered as Reported by: GRIFFIN ORTEGA on 07/24/21 1145 Glyburide (Glyburide) 2.5 Mg Tablet, 2.5 MG PO DAILY, (Reported) Entered as Reported by: GRIFFIN ORTEGA on 07/24/21 1145 Hydrocodone/Acetaminophen (Hydrocodone-Acetamin 5-325 mg) 1 Each Tablet, 2 EACH PO Q6H PRN for PAIN-MILD (1-4), (Reported) Entered as Reported by: EMILIO SHEPPARD on 10/26/19 0812 Metoclopramide HCl (Reglan) 5 Mg Tablet, 5 MG PO Q6H PRN for NAUSEA/VOMITING-3RD LINE Prescribed by: IZABELA MAC on 03/13/21 1301 Ondansetron (Ondansetron Odt) 8 Mg Tab.rapdis, 8 MG PO Q8H PRN for NAUSEA/VOMITING, (Reported) Entered as Reported by: EMILIO SHEPPARD on 10/26/19 0812 Promethazine HCl (Promethazine Tablet) 25 Mg Tablet, 25 MG PO Q6H PRN for NAUSEA/VOMITING, (Reported) Entered as Reported by: LEX HOSKINS on 12/07/20 0916 Ropinirole HCl (Ropinirole HCl) 4 Mg Tablet, 4 MG PO HS, (Reported) Entered as Reported by: LEX HOSKINS on 06/28/17 1010 Sertraline HCl (Sertraline HCl) 100 Mg Tablet, 100 MG PO HS, (Reported) Entered as Reported by: LEX HOSKINS on 12/07/20 0912 Sitagliptin Phos/Metformin HCl (Janumet Xr 50-1,000 mg Tablet) 1 Each Tbmp.24hr, 2 TAB-CAP PO DAILY@1900, (Reported) Entered as Reported by: LEX HOSKINS on 12/07/20 0916 Review of Systems Review of Systems Constitutional: No chills, No diaphoresis, No fever EENTM: No Blurred Vision, No Double Vision Respiratory: Denies Cough, Denies Shortness of Air Cardiovascular: Denies Chest Pain, Denies Lightheadedness Gastrointestinal: Denies Constipated; Diarrhea, Nausea, Vomiting Genitourinary: Denies Burning, Denies Discharge Musculoskeletal: No back pain, No joint pain All Other Systems Reviewed Negative Unless Noted: Yes Past [id number]-[id number]-[id number] Hx Patient Social History Tobacco Use?: No Use of E-Cig and/or Vaping dev: No Substance use?: No Alcohol Use?: No Immunizations Up To Date Tetanus Booster (TDap): Less than 5yrs PED Vaccines UTD: No Influenza Vaccine Up-to-Date: No; Not Current First/Initial COVID19 Vaccinat: unvaccinated Second COVID19 Vaccination Alvaro: none Third COVID19 Vaccination Date: none Seasonal Allergies Seasonal Allergies: No Past Medical History Surgery/Hospitalization HX: several surgeries including 1 kidney removal, appendectomy, cammie., and power port placement Surgeries: Yes (hernia repair x2, knee scopes, port placement) Adenoidectomy, Appendectomy, Gallbladder, Hysterectomy, Nephrectomy, Orthopedic, Tonsillectomy Respiratory: Yes Asthma Currently Using CPAP: No Currently Using BIPAP: No Cardiac: No Hypertension Neurological: Yes Headaches /Migraines Reproductive Disorders: Yes (HX ENDOMETRIOSIS ) 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: 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 [employer] ENG[employer]ER History: Hysterectomy Sexually Transmitted Disease: No HIV/AIDS: No Genitourinary: Yes (S/P NEPHRECTOMY) UTI-Chronic Gastrointestinal: Yes (CHRONIC ABD PAIN/N/V) Abdominal Hernia, Gastroesophageal Reflux, Liver Disease/Jaundice, Obstructive Bowel, Pancreatitis, Polyps Musculoskeletal: Yes (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) Chronic Back Pain Endocrine: Yes (OBESITY) Diabetes, Non-Insulin dep HEENT: No Loss of Vision: Denies Hearing Impairment: Denies Cancer: Yes Kidney Did You Recieve Any Treatments: Yes What Type of Treatment Did You: Surgical Intervention Psychosocial: Yes Anxiety, Depression Integumentary: No Herpes Blood Disorders: No Adverse Reaction/Blood Tranf: No (N/A) Family Medical History Cardiovascular disease 19 FATHER Completed stroke 19 FATHER Diabetes mellitus 19 FATHER Hypercholesterolemia 19 FATHER 19 MOTHER Hypertension 19 FATHER 19 MOTHER Neoplasm 19 MOTHER Psychosocial problem 19 FATHER 19 MOTHER No Pertinent Family Hx, Cancer, Diabetes, Hypertension PSH: -RIGHT KNEE SCOPE X 5 -LEFT KNEE SCOPE X 2 -TONSILLECTOMY / ADENOIDECTOMY -APPENDECTOMY -CHOLECYSTECTOMY -NASAL FRACTURE REPAIR -COCCYX REMOVAL -LEFT NEPHRECTOMY FOR MALIGNANCY -LEFT MID ABDOMEN INCISIONAL HERNIA REPAIR -DRAINAGE OF ABDOMINAL WALL ABSCESS -MULTIPLE EGD'S AND COLONOSCOPIES--LAST ONE DONE HERE 10/26/19 -HYSTERECTOMY / BILATERAL SALPINGO-OOPHORECTOMY 2007 -06/23/20--RIGHT CHEST WALL/SHOULDER INJECTION FOR THORACIC OUTLET SYNDROME--DONE IN -PORT REMOVED FROM LEFT CHEST 07/24/21 FOR NON-FUNCTIONING PORT-BY DR. MARROQUIN Physical Exam Vital Signs Vital Signs - First Documented 08/09/21 21:35 Temp 36.6 Pulse 101 Resp 20 B/P (MAP) 167/111 (129) Pulse Ox 97 O2 Delivery Room Air Capillary Refill : Less Than 3 Seconds Height/Weight/BMI Height: 5'3.00" Weight: 246lbs. 0oz. [id number]; 46.00 BMI Method:Stated General Appearance: WD/WN, mild distress HEENT: PERRL/EOMI, pharynx normal Neck: full range of motion, supple, normal inspection Respiratory: lungs clear, normal breath sounds, no respiratory distress, no accessory muscle use Cardiovascular: normal peripheral pulses, regular rate, rhythm Gastrointestinal: non tender, soft Neurologic/Psychiatric: alert, normal mood/affect, oriented x 3 Skin: normal color, warm/dry Progress/Results/Core Measures Results/Orders Lab Results Laboratory Tests Test 08/09/21 21:40 08/10/21 00:12 Range/Units White Blood Count 9.6 4.3-11.0 10^3/uL Red Blood Count 5.01 3.80-5.11 10^6/uL Hemoglobin 13.3 11.5-16.0 g/dL Hematocrit 42 35-52 % Mean Corpuscular Volume 83 80-99 fL Mean Corpuscular Hemoglobin 27 25-34 pg Mean Corpuscular Hemoglobin Concent 32 32-36 g/dL Red Cell Distribution Width 13.8 10.0-14.5 % Platelet Count 318 130-400 10^3/uL Mean Platelet Volume 9.5 9.0-12.2 fL Immature Granulocyte % (Auto) 0 % Neutrophils (%) (Auto) 53 42-75 % Lymphocytes (%) (Auto) 37 12-44 % Monocytes (%) (Auto) 5 0-12 % Eosinophils (%) (Auto) 4 0-10 % Basophils (%) (Auto) 0 0-10 % Neutrophils # (Auto) 5.1 1.8-7.8 10^3/uL Lymphocytes # (Auto) 3.6 1.0-4.0 10^3/uL Monocytes # (Auto) 0.4 0.0-1.0 10^3/uL Eosinophils # (Auto) 0.4 H 0.0-0.3 10^3/uL Basophils # (Auto) 0.0 0.0-0.1 10^3/uL Immature Granulocyte # (Auto) 0.0 0.0-0.1 10^3/uL Sodium Level 140 135-145 MMOL/L Potassium Level 4.5 3.6-5.0 MMOL/L Chloride Level 103 98-107 MMOL/L Carbon Dioxide Level 23 21-32 MMOL/L Anion Gap 14 5-14 MMOL/L Blood Urea Nitrogen 12 7-18 MG/DL Creatinine 0.86 0.60-1.30 MG/DL Estimat Glomerular Filtration Rate 89 BUN/Creatinine Ratio 14 Glucose Level 111 H 70-105 MG/DL Calcium Level 10.0 8.5-10.1 MG/DL Corrected Calcium 9.7 8.5-10.1 MG/DL Total Bilirubin 0.4 0.1-1.0 MG/DL Aspartate Amino Transf (AST/SGOT) 54 H 5-34 U/L Alanine Aminotransferase (ALT/SGPT) 52 0-55 U/L Alkaline Phosphatase 83 40-136 U/L C-Reactive Protein High Sensitivity 1.15 H 0.00-0.50 MG/DL Total Protein 8.6 H 6.4-8.2 GM/DL Albumin 4.4 3.2-4.5 GM/DL Lipase 56 8-78 U/L Urine Color YELLOW Urine Clarity CLEAR Urine pH 6.0 5-9 Urine Specific Warren 1.025 H 1.016-1.022 Urine Protein NEGATIVE NEGATIVE Urine Glucose (UA) NEGATIVE NEGATIVE Urine Ketones NEGATIVE NEGATIVE Urine Nitrite NEGATIVE NEGATIVE Urine Bilirubin NEGATIVE NEGATIVE Urine Urobilinogen 0.2 < = 1.0 MG/DL Urine Leukocyte Esterase NEGATIVE NEGATIVE Urine RBC (Auto) NEGATIVE NEGATIVE Urine RBC NONE /HPF Urine WBC NONE /HPF Urine Squamous Epithelial Cells 2-5 /HPF Urine Crystals NONE /LPF Urine Bacteria TRACE /HPF Urine Casts NONE /LPF Urine Mucus NEGATIVE /LPF Urine Culture Indicated NO My Orders Orders - MAKAYLA HAWKINS Cbc With Automated Diff (08/09/21 21:34) Comprehensive Metabolic Panel (08/09/21 21:34) Hs C Reactive Protein (08/09/21 21:34) Lipase (08/09/21 21:34) Ua Culture If Indicated (08/09/21 21:34) Urine Bedside (08/09/21 21:34) Ed Iv/Invasive Line Start (08/09/21 21:34) Lactated Ringers (Lr 1000 Ml Iv Solution (08/09/21 21:45) Ondansetron Injection (Zofran Injectio (08/09/21 22:30) Diphenhydramine Injection (Benadryl Inje (08/09/21 22:30) Promethazine Injection (Phenergan Injec (08/09/21 22:30) Pantoprazole Injection (Protonix Injecti (08/09/21 22:45) Ed Iv/Invasive Line Start (08/09/21 22:34) Lactated Ringers (Lr 1000 Ml Iv Solution (08/09/21 22:45) Droperidol Inj (Ed Only) (Inapsine Inj ( (08/10/21 00:45) Medications Given in ED Current Medications Medications Dose Ordered Sig/Neal Route Start Time Stop Time Status Last Admin Dose Admin Diphenhydramine HCl 25 mg ONCE ONCE IVP 08/09/21 22:30 08/09/21 22:31 DC 08/09/21 22:36 25 MG Droperidol 2.5 mg ONCE ONCE IV 08/10/21 00:45 08/10/21 00:46 DC 08/10/21 01:01 2.5 MG Lactated Ringer's 1,000 ml @ 0 mls/hr Q0M ONCE IV 08/09/21 21:45 08/09/21 21:46 DC 08/09/21 21:47 0 MLS/HR Lactated Ringer's 1,000 ml @ 0 mls/hr Q0M ONCE IV 08/09/21 22:45 08/09/21 22:46 DC 08/10/21 00:16 1,000 MLS/HR Ondansetron HCl 12 mg ONCE ONCE IVP 08/09/21 22:30 08/09/21 22:31 DC 08/09/21 22:35 12 MG Pantoprazole 40 mg ONCE ONCE IV 08/09/21 22:45 08/09/21 22:46 DC 08/10/21 00:13 40 MG Promethazine HCl 25 mg ONCE ONCE IVP 08/09/21 22:30 08/09/21 22:31 DC 08/09/21 22:40 25 MG Vital Signs/I&O 08/09/21 21:35 Temp 36.6 Pulse 101 Resp 20 B/P (MAP) 167/111 (129) Pulse Ox 97 O2 Delivery Room Air Blood Pressure Mean: 129 Progress Progress Note #1: Time: 22:33 Progress Note IV Zofran, 12 mg, Phenergan 25 mg and Benadryl 25 mg. 2 L of fluids, pantoprazole and check some labs including a lipase. Urinalysis. Progress Note #2: Time: 01:08 Progress Note Patient had no more vomiting since she arrived. She states she still having a little bit of retching and nausea so we will trial some droperidol. She will fi kyra her fluids and is ready to go home. Departure Impression Primary Impression: Cyclical vomiting syndrome Disposition: 01 HOME, SELF-CARE Condition: Stable Departure-Patient Inst. Decision time for Depature: 01:09 Referrals: CARMEN GIBBS MD (PCP/Family) Primary Care Physician Patient Instructions: Nausea and Vomiting, Adult Add. Discharge Instructions: Drink plenty of fluids. Continue take your medications as described. Follow-up with your specialist. All discharge instructions reviewed with patient and/or family. Voiced understanding. MAKAYLA HAWKINS Aug 09, 2021 22:34
[2021-08-09] MEDS ORDERED: PANTOPRAZOLE 40 MG (PROTONIX) VIAL IV ONE (22:45)
[2021-08-10 00:18] LABS: BILIRUBIN,URINE NEGATIVE (NEGATIVE); CLARITY,URINE CLEAR; COLOR,URINE YELLOW; GLUCOSE, URINE (UA) NEGATIVE (NEGATIVE); KETONES,URINE NEGATIVE (NEGATIVE); LEUKOCYTE ESTERASE ,URINE NEGATIVE (NEGATIVE); NITRITE,URINE NEGATIVE (NEGATIVE); PROTEIN,URINE NEGATIVE (NEGATIVE)
[2021-08-10 00:26] LABS: BACTERIA,URINE TRACE /HPF
[2021-08-10] MEDS ORDERED: DROPERIDOL 5 MG/2 ML (INAPSINE) ED ONLY! IV ONE (00:45)
== END 2021-08-10 01:25 | disposition home or self-care (01) ==
LOC: EDUNIT# 21:26 → ER 21:27
DX: R11.15 Cyclical vomiting syndrome unrelated to migraine (principal); E66.9 Obesity, unspecified; Z68.42 Body mass index [BMI] 45.0-49.9, adult
CPT/HCPCS: 36415; 80053; 81000; 83690; 84703; 85025; 86141

== ENCOUNTER → 2021-08-30 | Outpatient (CLI) | payer MEDICARE, MEDICAID ==
--- NOTE | 2021-08-30 12:27 | Diagnostic Imaging Report ---
PROCEDURE: CT sinuses without contrast TECHNIQUE: Multiple contiguous axial images were obtained through the sinuses without the use of intravenous contrast. Coronal and sagittal reformations were then performed. Auto Exposure Controls were utilized during the CT exam to meet ALARA standards for radiation dose reduction. INDICATION: Chronic sinusitis. COMPARISON: 09/07/2020 FINDINGS: Mild mucosal thickening within the right frontal sinus, new since the prior examination. This is associated with opacification of the right frontoethmoidal recess. Minimal opacification of some anterior right ethmoid air cells. The left frontal sinus, left frontoethmoidal recess, and left ethmoid air cells are clear. Minimal mucosal thickening within the right sphenoid sinus. The bilateral mastoid air cells and middle ear cavities appear clear. The bilateral maxillary sinuses are clear. Mild rightward nasal septal deviation. Narrowing of the bilateral ostiomeatal complexes secondary to mild mucosal thickening. No temporomandibular joint dislocation. The lamina papyracea are intact. No acute facial fracture. The parapharyngeal fat is symmetric and well-maintained. The visualized muscles of mastication are unremarkable. The orbits are unremarkable. No intracranial midline shift. IMPRESSION: Mild right frontoethmoidal sinus disease as described above, which is new since August 2020. Additional findings as described above including rightward nasal septal deviation without acute facial fracture. Dictated by: Dictated on workstation # [id number]
== END ==
LOC: RAD 11:15
PROVIDERS: ATTEND Otolaryngology Otolaryngology/Facial Plastic Surgery
DX: J32.9 Chronic sinusitis, unspecified (principal); J34.2 Deviated nasal septum
CPT/HCPCS: 70486

== ENCOUNTER 2021-09-08 13:29 | Emergency (ER) | payer MEDICARE, MEDICAID ==
[~2021-09-08] VITALS: Ht 160 cm; Wt 120.2 kg
[2021-09-08] MEDS ORDERED: diphenhydrAMINE 50 MG/ML INJ (BENADRYL) IV STA (13:57)
[2021-09-08] MEDS ORDERED: NS IV 1000 ML 1,000 ML IV SCH (14:00)
[2021-09-08] MEDS ORDERED: ONDANSETRON 4 MG/2 ML (SDV) Z0FRAN IVP ONE (14:00)
--- NOTE | 2021-09-08 14:05 | ED Abdominal Pain ---
General Chief Complaint: Abdominal/GI Problems Stated Complaint: VOMITING - ABD PAIN Nursing Triage Note: PT AMB TO RM 6 W C/O N/V, AND RUQ/RLQ PAIN. PT A&OX4. Source of Information: Patient Exam Limitations: No Limitations History of Present Illness Date Seen by Provider: Sep 08, 2021 Time Seen by Provider: 13:47 Initial Comments Here with complaint of right upper quadrant and right-sided abdominal pain associated with nausea and vomiting. She does have a history of cyclic vomiting syndrome and goes to this occasionally. She has tried her typical Reglan, Zofra n and Phenergan without success. She states that she not eating or drinking well. Does have history of pancreatitis and left nephrectomy. She is currently on pancreatic enzymes and another oral medication to help with digestion per GI doctor. Last seen for similar approximately a month ago. At that time she had droperidol but apparently had restless leg syndrome afterwards. Denies fever chills. Denies other illness symptoms. Denies diarrhea currently. Timing/Duration: 2-3 Days, Getting Worse Severity/Quality: Moderate, Aching Location: RUQ, RLQ Radiation: No Radiation Activities at Onset: None Modifying Factors: Worsens With Eating Associated Symptoms: No Back Pain, No Chest Pain, No Fever/Chills, No Fatigue; Nausea/Vomiting; No Shortness of Air, No Swelling/Mass in Abdomen, No Weakness Allergies and Home Medications Allergies Coded Allergies: fentanyl (Verified Allergy, Unknown, 10/16/18) meperidine (Verified Allergy, Unknown, 10/16/18) penicillin G (Verified Allergy, Unknown, 10/16/18) prochlorperazine (Verified Allergy, Unknown, 03/15/21) trimethobenzamide (Unverified Allergy, Unknown, 09/05/20) vancomycin (Verified Adverse Reaction, Intermediate, severe itching, 10/26/19) Patient Home Medication List Home Medication List Reviewed: Yes Acetaminophen (Tylenol Extra Strength) 500 Mg Tablet, 1,000 MG PO Q8H PRN for PAIN-MILD (1-4), (Reported) Entered as Reported by: EMILIO SHEPPARD on 10/26/19 0812 Albuterol Sulfate (Albuterol Sulfate) 2.5 Mg/0.5 Ml Vial.neb, 2.5 MG INH Q4H, (Reported) Entered as Reported by: GRIFFIN ORTEGA on 07/24/21 1145 Atorvastatin Calcium (Atorvastatin Calcium) 20 Mg Tablet, 20 MG PO HS, (Reported) Entered as Reported by: LEX HOSKINS on 12/07/20 0916 Benzonatate (Tessalon Perles) 100 Mg Capsule, 100 MG PO DAILY, (Reported) Entered as Reported by: GRIFFIN ORTEGA on 07/24/21 1145 Cyanocobalamin (Cyanocobalamin Injection) 1,000 Mcg/Ml Inj, 1,000 MCG IM MONTHLY, (Reported) Entered as Reported by: GRIFFIN ORTEGA on 07/24/21 1145 Cyclobenzaprine HCl (Cyclobenzaprine HCl) 10 Mg Tablet, 10 MG PO Q8H PRN for SPASMS Prescribed by: MAKAYLA HAWKINS on 02/28/21 0942 Dextromethorphan Polistirex (Delsym) 30 Mg/5 Ml Petty.er.12h, 10 ML PO BID, (Reported) Entered as Reported by: GRIFFIN ORTEGA on 07/24/21 1145 Diphenhydramine HCl (Benadryl) 25 Mg Capsule, 25 MG PO HS PRN for SLEEP, (Reported) Entered as Reported by: EMILIO SHEPPARD on 10/26/19 0812 Doxycycline Hyclate (Doxycycline Hyclate) 100 Mg Tablet, 100 MG PO BID, (Reported) Entered as Reported by: GRIFFIN ORTEGA on 07/24/21 1139 Estradiol (Estrace Tablet) 1 Mg Tablet, 1 MG PO DAILY, (Reported) Entered as Reported by: GRIFFIN ORTEGA on 07/24/21 1145 Glyburide (Glyburide) 2.5 Mg Tablet, 2.5 MG PO DAILY, (Reported) Entered as Reported by: GRIFFIN ORTEGA on 07/24/21 1145 Hydrocodone/Acetaminophen (Hydrocodone-Acetamin 5-325 mg) 1 Each Tablet, 2 EACH PO Q6H PRN for PAIN-MILD (1-4), (Reported) Entered as Reported by: EMILIO SHEPPARD on 10/26/19 0812 Metoclopramide HCl (Reglan) 5 Mg Tablet, 5 MG PO Q6H PRN for NAUSEA/VOMITING-3RD LINE Prescribed by: IZABELA MAC on 03/13/21 1301 Ondansetron (Ondansetron Odt) 8 Mg Tab.rapdis, 8 MG PO Q8H PRN for NAUSEA/VOMITING, (Reported) Entered as Reported by: EMILIO SHEPPARD on 10/26/19 0812 Promethazine HCl (Promethazine Tablet) 25 Mg Tablet, 25 MG PO Q6H PRN for NAUSEA/VOMITING, (Reported) Entered as Reported by: LEX HOSKINS on 12/07/20 0916 Ropinirole HCl (Ropinirole HCl) 4 Mg Tablet, 4 MG PO HS, (Reported) Entered as Reported by: LEX HOSKINS on 06/28/17 1010 Sertraline HCl (Sertraline HCl) 100 Mg Tablet, 100 MG PO HS, (Reported) Entered as Reported by: LEX HOSKINS on 12/07/20 0912 Sitagliptin Phos/Metformin HCl (Janumet Xr 50-1,000 mg Tablet) 1 Each Tbmp.24hr, 2 TAB-CAP PO DAILY@1900, (Reported) Entered as Reported by: LEX HOSKINS on 12/07/20 0916 Review of Systems Review of Systems Constitutional: see HPI; No chills, No fever EENTM: No Symptoms Reported Respiratory: Denies Shortness of Air, Denies Wheezing Cardiovascular: No Symptoms Reported Gastrointestinal: Abdominal Pain; Denies Diarrhea; Nausea, Vomiting Genitourinary: Denies Frequency; Flank Pain; Denies Pain Musculoskeletal: back pain; No muscle pain All Other Systems Reviewed Negative Unless Noted: Yes Past Gobjgxi-Jjtvmm-Fiyijw Hx Patient Social History Tobacco Use?: No Use of E-Cig and/or Vaping dev: No Substance use?: No Alcohol Use?: No Immunizations Up To Date Tetanus Booster (TDap): Less than 5yrs PED Vaccines UTD: No First/Initial COVID19 Vaccinat: unvaccinated Second COVID19 Vaccination Alvaro: unvaccinated Third COVID19 Vaccination Date: unvaccinated Seasonal Allergies Seasonal Allergies: No Past Medical History Surgery/Hospitalization HX: several surgeries including 1 kidney removal, appendectomy, cammie., and power port placement Surgeries: Yes (hernia repair x2, knee scopes, port placement) Adenoidectomy, Appendectomy, Gallbladder, Hysterectomy, Nephrectomy, Orthopedic, Tonsillectomy Respiratory: Yes Asthma Currently Using CPAP: No Currently Using BIPAP: No Cardiac: No Hypertension Neurological: Yes Headaches /Migraines Reproductive Disorders: Yes (HX ENDOMETRIOSIS ) 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: 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 VP SCIENTIFIC History: Hysterectomy Sexually Transmitted Disease: No HIV/AIDS: No Genitourinary: Yes (S/P NEPHRECTOMY) UTI-Chronic Gastrointestinal: Yes (CHRONIC ABD PAIN/N/V) Abdominal Hernia, Gastroesophageal Reflux, Liver Disease/Jaundice, Obstructive Bowel, Pancreatitis, Polyps Musculoskeletal: Yes (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) Chronic Back Pain Endocrine: Yes (OBESITY) Diabetes, Non-Insulin dep HEENT: No Loss of Vision: Denies Hearing Impairment: Denies Cancer: Yes Kidney Did You Recieve Any Treatments: Yes What Type of Treatment Did You: Surgical Intervention Psychosocial: Yes Anxiety, Depression Integumentary: No Herpes Blood Disorders: No Adverse Reaction/Blood Tranf: No (N/A) Family Medical History Reviewed Nursing Family Hx Cardiovascular disease 19 FATHER Completed stroke 19 FATHER Diabetes mellitus 19 FATHER Hypercholesterolemia 19 FATHER 19 MOTHER Hypertension 19 FATHER 19 MOTHER Neoplasm 19 MOTHER Psychosocial problem 19 FATHER 19 MOTHER No Pertinent Family Hx, Cancer, Diabetes, Hypertension PSH: -RIGHT KNEE SCOPE X 5 -LEFT KNEE SCOPE X 2 -TONSILLECTOMY / ADENOIDECTOMY -APPENDECTOMY -CHOLECYSTECTOMY -NASAL FRACTURE REPAIR -COCCYX REMOVAL -LEFT NEPHRECTOMY FOR MALIGNANCY -LEFT MID ABDOMEN INCISIONAL HERNIA REPAIR -DRAINAGE OF ABDOMINAL WALL ABSCESS -MULTIPLE EGD'S AND COLONOSCOPIES--LAST ONE DONE HERE 10/26/19 -HYSTERECTOMY / BILATERAL SALPINGO-OOPHORECTOMY 2007 -06/23/20--RIGHT CHEST WALL/SHOULDER INJECTION FOR THORACIC OUTLET SYNDROME--DONE IN -PORT REMOVED FROM LEFT CHEST 07/24/21 FOR NON-FUNCTIONING PORT-BY DR. MARROQUIN Physical Exam Vital Signs Vital Signs - First Documented 09/08/21 13:39 Temp 36.6 Pulse 81 Resp 20 B/P (MAP) 124/77 (93) Pulse Ox 97 O2 Delivery Room Air Capillary Refill : Less Than 3 Seconds Height/Weight/BMI Height: 5'3.00" Weight: 246lbs. 0oz. [id number]; 46.00 BMI Method:Stated General Appearance: WD/WN, no apparent distress HEENT: PERRL/EOMI, pharynx normal Neck: full range of motion, supple Respiratory: lungs clear, normal breath sounds Cardiovascular: regular rate, rhythm, no murmur Peripheral Pulses: 2+ Dorsalis Pedis (R), 2+ Left Dors-Pedis (L), 2+ Radial Pulses (R), 2+ Radial Pulses (L) Gastrointestinal: normal bowel sounds, soft, tenderness (Right flank wound right upper) Extremities: non-tender, normal inspection Back: no vertebral tenderness, CVA tenderness (R); No CVA tenderness (L) Neurologic/Psychiatric: alert, oriented x 3 Skin: normal color, warm/dry Progress/Results/Core Measures Results/Orders Lab Results Laboratory Tests Test 09/08/21 14:19 09/08/21 14:30 Range/Units White Blood Count 8.5 4.3-11.0 10^3/uL Red Blood Count 4.73 3.80-5.11 10^6/uL Hemoglobin 12.8 11.5-16.0 g/dL Hematocrit 40 35-52 % Mean Corpuscular Volume 84 80-99 fL Mean Corpuscular Hemoglobin 27 25-34 pg Mean Corpuscular Hemoglobin Concent 32 32-36 g/dL Red Cell Distribution Width 13.6 10.0-14.5 % Platelet Count 276 130-400 10^3/uL Mean Platelet Volume 9.5 9.0-12.2 fL Immature Granulocyte % (Auto) 0 % Neutrophils (%) (Auto) 55 42-75 % Lymphocytes (%) (Auto) 36 12-44 % Monocytes (%) (Auto) 4 0-12 % Eosinophils (%) (Auto) 3 0-10 % Basophils (%) (Auto) 1 0-10 % Neutrophils # (Auto) 4.7 1.8-7.8 10^3/uL Lymphocytes # (Auto) 3.0 1.0-4.0 10^3/uL Monocytes # (Auto) 0.4 0.0-1.0 10^3/uL Eosinophils # (Auto) 0.3 0.0-0.3 10^3/uL Basophils # (Auto) 0.1 0.0-0.1 10^3/uL Immature Granulocyte # (Auto) 0.0 0.0-0.1 10^3/uL Sodium Level 140 135-145 MMOL/L Potassium Level 4.6 3.6-5.0 MMOL/L Chloride Level 106 98-107 MMOL/L Carbon Dioxide Level 21 21-32 MMOL/L Anion Gap 13 5-14 MMOL/L Blood Urea Nitrogen 14 7-18 MG/DL Creatinine 0.90 0.60-1.30 MG/DL Estimat Glomerular Filtration Rate 84 BUN/Creatinine Ratio 16 Glucose Level 91 70-105 MG/DL Calcium Level 9.8 8.5-10.1 MG/DL Corrected Calcium 9.7 8.5-10.1 MG/DL Total Bilirubin 0.3 0.1-1.0 MG/DL Aspartate Amino Transf (AST/SGOT) 40 H 5-34 U/L Alanine Aminotransferase (ALT/SGPT) 38 0-55 U/L Alkaline Phosphatase 68 40-136 U/L Total Protein 7.5 6.4-8.2 GM/DL Albumin 4.1 3.2-4.5 GM/DL Amylase Level 140 H 25-125 U/L Lipase 200 H 8-78 U/L Urine Color YELLOW Urine Clarity SL CLOUDY Urine pH 5.5 5-9 Urine Specific [place] 1.025 H 1.016-1.022 Urine Protein NEGATIVE NEGATIVE Urine Glucose (UA) NEGATIVE NEGATIVE Urine Ketones NEGATIVE NEGATIVE Urine Nitrite NEGATIVE NEGATIVE Urine Bilirubin NEGATIVE NEGATIVE Urine Urobilinogen 0.2 < = 1.0 MG/DL Urine Leukocyte Esterase NEGATIVE NEGATIVE Urine RBC (Auto) NEGATIVE NEGATIVE Urine RBC NONE /HPF Urine WBC NONE /HPF Urine Crystals PRESENT H /LPF Urine Amorphous Sediment FEW HAMMAD URATES H /LPF Urine Bacteria TRACE /HPF Urine Casts NONE /LPF Urine Mucus NEGATIVE /LPF Urine Culture Indicated NO My Orders Orders - YUKI MARCH MD Amylase (09/08/21 13:57) Cbc With Automated Diff (09/08/21 13:57) Comprehensive Metabolic Panel (09/08/21 13:57) Lipase (09/08/21 13:57) Ed Iv/Invasive Line Start (09/08/21 13:57) Ns Iv 1000 Ml (Sodium Chloride 0.9%) (09/08/21 14:00) Ondansetron Injection (Zofran Injectio (09/08/21 14:00) Diphenhydramine Injection (Benadryl Inje (09/08/21 13:57) Ua Culture If Indicated (09/08/21 14:05) Ns Iv 500 Ml (Sodium Chloride 0.9%) (09/08/21 16:15) Promethazine Injection (Phenergan Injec (09/08/21 16:04) Medications Given in ED Current Medications Medications Dose Ordered Sig/Neal Route Start Time Stop Time Status Last Admin Dose Admin Ondansetron HCl 4 mg ONCE ONCE IVP 09/08/21 14:00 09/08/21 14:02 DC 09/08/21 14:31 4 MG Sodium Chloride 500 ml @ 0 mls/hr Q0M ONCE IV 09/08/21 16:15 09/08/21 16:16 DC 09/08/21 16:17 0 MLS/HR Vital Signs/I&O 09/08/21 13:39 Temp 36.6 Pulse 81 Resp 20 B/P (MAP) 124/77 (93) Pulse Ox 97 O2 Delivery Room Air Blood Pressure Mean: 93 Progress Progress Note : Progress Note Seen and evaluated. IV, labs, UA, normal saline 1 L bolus, Zofran 4 mg IV and Benadryl 25 mg IV ordered. Monitor patient. 1604: Labs reviewed. Lipase slightly elevated at 200 which may be generic or may be related to vomiting. She still reports pretty significant nausea. We will go ahead and do another 500 mL of normal saline and add 25 mg of Phenergan. She was amiable to that. Seems to have worked in the past so we will see how this does. Monitor patient. Departure Impression Primary Impression: Cyclical vomiting syndrome Additional Impression: Upper abdominal pain Disposition: 01 HOME, SELF-CARE Condition: Stable Departure-Patient Inst. Decision time for Depature: 16:35 Referrals: CARMEN GIBBS MD (PCP/Family) Primary Care Physician Patient Instructions: Severe Abdominal Pain, Adult (DC), Nausea and Vomiting, Adult (DC), Pancreatitis (DC) Add. Discharge Instructions: All discharge instructions reviewed with patient and/or family. Voiced understanding. Continue home medications as previously prescribed. Clear liquid or light diet for the next few days and then advance as tolerated. It is very important that you follow-up with your GI doctor to discuss your symptoms further. Return for worse pain, fever, vomiting, weakness, breathing problems or other concerns as needed. YUKI MARCH MD Sep 08, 2021 14:05
[2021-09-08 14:27] LABS: BASOPHILS # (AUTO) 0.1 10^3/uL (0.0-0.1); BASOPHILS % (AUTO) 1 % (0-10); EOSINOPHILS # (AUTO) 0.3 10^3/uL (0.0-0.3); EOSINOPHILS % (AUTO) 3 % (0-10); HEMATOCRIT 40 % (35-52); HEMOGLOBIN 12.8 g/dL (11.5-16.0); LYMPHOCYTES % (AUTO) 36 % (12-44); MEAN CORPUSCULAR HEMOGLOBIN 27 pg (25-34); MEAN CORPUSCULAR HGB CONC 32 g/dL (32-36); MEAN CORPUSCULAR VOLUME 84 fL (80-99); MEAN PLATELET VOLUME 9.5 fL (9.0-12.2); MONOCYTES # (AUTO) 0.4 10^3/uL (0.0-1.0); MONOCYTES % (AUTO) 4 % (0-12); NEUTROPHILS # (AUTO) 4.7 10^3/uL (1.8-7.8); NEUTROPHILS % (AUTO) 55 % (42-75); PLATELET COUNT 276 10^3/uL (130-400); WHITE BLOOD COUNT 8.5 10^3/uL (4.3-11.0)
[2021-09-08 14:35] LABS: ALBUMIN 4.1 GM/DL (3.2-4.5); POTASSIUM 4.6 MMOL/L (3.6-5.0)
[2021-09-08 14:36] LABS: CALCIUM 9.8 MG/DL (8.5-10.1)
[2021-09-08 14:37] LABS: TOTAL PROTEIN 7.5 GM/DL (6.4-8.2)
[2021-09-08 14:39] LABS: BILIRUBIN,TOTAL 0.3 MG/DL (0.1-1.0)
[2021-09-08 14:41] LABS: CREATININE SERUM 0.9 MG/DL (0.60-1.30)
[2021-09-08 14:42] LABS: BILIRUBIN,URINE NEGATIVE (NEGATIVE); CLARITY,URINE SL CLOUDY; COLOR,URINE YELLOW; GLUCOSE, URINE (UA) NEGATIVE (NEGATIVE); KETONES,URINE NEGATIVE (NEGATIVE); LEUKOCYTE ESTERASE ,URINE NEGATIVE (NEGATIVE); NITRITE,URINE NEGATIVE (NEGATIVE); PH,URINE 5.5 (5-9); PROTEIN,URINE NEGATIVE (NEGATIVE)
[2021-09-08 14:53] LABS: AMORPHOUS SEDIMENT,UR FEW AMOR URATES /LPF; BACTERIA,URINE TRACE /HPF
[2021-09-08] MEDS ORDERED: PROMETHAZINE INJ 25 MG/ML (PHENERGAN) AMP IVP STA (16:04)
[2021-09-08] MEDS ORDERED: NS IV 500 ML 500 ML IV ONE (16:15)
[2021-09-08 17:05] VITALS: BP 120/84
== END 2021-09-08 17:05 | disposition home or self-care (01) ==
LOC: EDUNIT# 13:29 → ER 13:30
DX: R11.15 Cyclical vomiting syndrome unrelated to migraine (principal); R10.11 Right upper quadrant pain; Z79.899 Other long term (current) drug therapy; Z87.19 Personal history of other diseases of the digestive system; Z90.5 Acquired absence of kidney
CPT/HCPCS: 36415; 80053; 81000; 82150; 83690; 85025

== ENCOUNTER 2021-09-28 07:11 | Emergency (ER) | payer MEDICARE, MEDICAID ==
[~2021-09-28] VITALS: Ht 160 cm; Wt 118.0 kg
[2021-09-28 07:54] LABS: BASOPHILS % (AUTO) 1 % (0-10); EOSINOPHILS # (AUTO) 0.3 10^3/uL (0.0-0.3); EOSINOPHILS % (AUTO) 4 % (0-10); HEMATOCRIT 38 % (35-52); HEMOGLOBIN 12.4 g/dL (11.5-16.0); LYMPHOCYTES % (AUTO) 33 % (12-44); MEAN CORPUSCULAR HEMOGLOBIN 27 pg (25-34); MEAN CORPUSCULAR HGB CONC 33 g/dL (32-36); MEAN CORPUSCULAR VOLUME 83 fL (80-99); MEAN PLATELET VOLUME 9.4 fL (9.0-12.2); MONOCYTES # (AUTO) 0.4 10^3/uL (0.0-1.0); MONOCYTES % (AUTO) 5 % (0-12); NEUTROPHILS # (AUTO) 5.1 10^3/uL (1.8-7.8); NEUTROPHILS % (AUTO) 58 % (42-75); PLATELET COUNT 258 10^3/uL (130-400); WHITE BLOOD COUNT 8.9 10^3/uL (4.3-11.0)
[2021-09-28 08:04] LABS: ALBUMIN 4.1 GM/DL (3.2-4.5); POTASSIUM 3.7 MMOL/L (3.6-5.0)
[2021-09-28 08:05] LABS: CALCIUM 9.5 MG/DL (8.5-10.1)
[2021-09-28 08:07] LABS: TOTAL PROTEIN 7.2 GM/DL (6.4-8.2)
[2021-09-28 08:09] LABS: BILIRUBIN,TOTAL 0.4 MG/DL (0.1-1.0)
--- NOTE | 2021-09-28 08:09 | ED Chest Pain ---
General Chief Complaint: Cough/Cold/Flu Symptoms Stated Complaint: SOA - COUGH - SORE THROAT Nursing Triage Note: PT AMB TO RM 10 PT CO OF COUGH, C/P, SOA, SINUS INFECTION, HEAD CONGESTION, DENIES FEVERS, ITCHY THROAT AND EARS. CP STARTED AT O600 THIS AM. PT HYPERVENTILATING UPON ARRIVAL RR 40, TALKED TO PT AND BREATHING SLOWED 21, SAT 99-100% AT ALL X'S Source: patient Exam Limitations: no limitations History of Present Illness Date Seen by Provider: Sep 28, 2021 Time Seen by Provider: 07:14 Initial Comments This 36-year-old woman well-known to this provider from prior visits presents to the emergency room via private vehicle with complaints of pleuritic chest pain, productive cough, congestion, and itching in the throat and ears. Symptoms began with the itching sensation last night. She took doses of Benadryl both last night and this morning without any improvement. She presents appearing rather anxious with tachypnea. She tried taking her inhaler this morning which did not improve her situation either. The chest pain and shortness of breath started this morning. She has been afebrile. She has been seeing Dr. Jules for chronic sinus infection and has surgery anticipated this summer. She is hesitant to take any antibiotics because of a recent bout of C. difficile. She has not been able to identify any particular asthma or allergy trigger. Allergies and Home Medications Allergies Coded Allergies: fentanyl (Verified Allergy, Unknown, 10/16/18) meperidine (Verified Allergy, Unknown, 10/16/18) penicillin G (Verified Allergy, Unknown, 10/16/18) prochlorperazine (Verified Allergy, Unknown, 03/15/21) trimethobenzamide (Unverified Allergy, Unknown, 09/05/20) vancomycin (Verified Adverse Reaction, Intermediate, severe itching, 10/26/19) Patient Home Medication List Home Medication List Reviewed: Yes Acetaminophen (Tylenol Extra Strength) 500 Mg Tablet, 1,000 MG PO Q8H PRN for PAIN-MILD (1-4), (Reported) Entered as Reported by: EMILIO SHEPPARD on 10/26/19 0812 Acetaminophen with Codeine (Acetaminop-Codein 240-24 mg/10) 10 Ml Solution, 10 ML PO Q6H PRN for cough Prescribed by: GEO BORJA on 09/29/212037 Albuterol Sulfate (Albuterol Sulfate) 2.5 Mg/0.5 Ml Vial.neb, 2.5 MG INH Q4H, (Reported) Entered as Reported by: GRIFFIN ORTEGA on 07/24/21 1145 Atorvastatin Calcium (Atorvastatin Calcium) 20 Mg Tablet, 20 MG PO HS, (Repor arvind) Entered as Reported by: LEX HOSKINS on 12/07/20 0916 Benzonatate (Tessalon Perles) 100 Mg Capsule, 100 MG PO DAILY, (Reported) Entered as Reported by: GRIFFIN ORTEGA on 07/24/21 1145 Cyanocobalamin (Cyanocobalamin Injection) 1,000 Mcg/Ml Inj, 1,000 MCG IM MONTHLY, (Reported) Entered as Reported by: GRIFFIN ORTEGA on 07/24/21 1145 Cyclobenzaprine HCl (Cyclobenzaprine HCl) 10 Mg Tablet, 10 MG PO Q8H PRN for SPASMS Prescribed by: MAKAYLA HAWKINS on 02/28/21 0942 Dextromethorphan Polistirex (Delsym) 30 Mg/5 Ml Petty.er.12h, 10 ML PO BID, (Reported) Entered as Reported by: GRIFFIN ORTEGA on 07/24/21 1145 Diphenhydramine HCl (Benadryl) 25 Mg Capsule, 25 MG PO HS PRN for SLEEP, (Reported) Entered as Reported by: EMILIO SHEPPARD on 10/26/19 0812 Doxycycline Hyclate (Doxycycline Hyclate) 100 Mg Tablet, 100 MG PO BID, (Reported) Entered as Reported by: GRIFFIN ORTEGA on 07/24/21 1139 Estradiol (Estrace Tablet) 1 Mg Tablet, 1 MG PO DAILY, (Reported) Entered as Reported by: GRIFFIN ORTEGA on 07/24/21 1145 Famotidine (Pepcid) 20 Mg Tablet, 20 MG PO BID Prescribed by: IZABELA MAC on 09/28/21 1539 Glyburide (Glyburide) 2.5 Mg Tablet, 2.5 MG PO DAILY, (Reported) Entered as Reported by: GRIFFIN ORTEGA on 07/24/21 1145 Hydrocodone/Acetaminophen (Hydrocodone-Acetamin 5-325 mg) 1 Each Tablet, 2 EACH PO Q6H PRN for PAIN-MILD (1-4), (Reported) Entered as Reported by: EMILIO SHEPPARD on 10/26/19 0812 Metoclopramide HCl (Reglan) 5 Mg Tablet, 5 MG PO Q6H PRN for NAUSEA/VOMITING-3RD LINE Prescribed by: IZABELA MAC on 03/13/21 1301 Ondansetron (Ondansetron Odt) 8 Mg Tab.rapdis, 8 MG PO Q8H PRN for NAUSEA/VOMITING, (Reported) Entered as Reported by: EMILIO SHEPPARD on 10/26/19 0812 Promethazine HCl (Promethazine Tablet) 25 Mg Tablet, 25 MG PO Q6H PRN for NAUSEA/VOMITING, (Reported) Entered as Reported by: LEX HOSKINS on 12/07/20 0916 Ropinirole HCl (Ropinirole HCl) 4 Mg Tablet, 4 MG PO HS, (Reported) Entered as Reported by: LEX HOSKINS on 06/28/17 1010 Sertraline HCl (Sertraline HCl) 100 Mg Tablet, 100 MG PO HS, (Reported) Entered as Reported by: LEX HOSKINS on 12/07/20 0912 Sitagliptin Phos/Metformin HCl (Janumet Xr 50-1,000 mg Tablet) 1 Each Tbmp.24hr, 2 TAB-CAP PO DAILY@1900, (Reported) Entered as Reported by: LEX HOSKINS on 12/07/20 0916 Review of Systems Review of Systems Constitutional: no symptoms reported EENTM: See HPI Respiratory: See HPI Cardiovascular: See HPI Gastrointestinal: No Symptoms Reported Genitourinary: No Symptoms Reported Musculoskeletal: no symptoms reported Skin: no symptoms reported Psychiatric/Neurological: See HPI Endocrine: No Symptoms Reported Hematologic/Lymphatic: No Symptoms Reported Past Gmjodwr-Feodqn-Vazbks Hx Patient Social History Tobacco Use?: No Substance use?: No Alcohol Use?: No Pt feels they are or have been: No Immunizations Up To Date Tetanus Booster (TDap): Less than 5yrs PED Vaccines UTD: No First/Initial COVID19 Vaccinat: AUGUST 2021 Second COVID19 Vaccination Alvaro: unvaccinated Third COVID19 Vaccination Date: unvaccinated COVID19 Vaccine Stick Puller: KAREEN Seasonal Allergies Seasonal Allergies: No Past Medical History Surgery/Hospitalization HX: several surgeries including 1 kidney removal, appendectomy, cammie., and power port placement, POWER PORT REMOVAL Surgeries: Yes (hernia repair x2, knee scopes, port placement) Adenoidectomy, Appendectomy, Gallbladder, Hysterectomy, Nephrectomy, Orthopedic, Tonsillectomy Respiratory: Yes Asthma Currently Using CPAP: No Currently Using BIPAP: No Cardiac: No Hypertension Neurological: Yes Headaches /Migraines Reproductive Disorders: Yes (HX ENDOMETRIOSIS ) 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: 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 Sexually Transmitted Disease: No HIV/AIDS: No Genitourinary: Yes (S/P NEPHRECTOMY) UTI-Chronic Gastrointestinal: Yes (CHRONIC ABD PAIN/N/V) Abdominal Hernia, Gastroesophageal Reflux, Liver Disease/Jaundice, Obstructive Bowel, Pancreatitis, Polyps Musculoskeletal: Yes (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) Chronic Back Pain Endocrine: Yes (OBESITY) Diabetes, Non-Insulin dep HEENT: No Loss of Vision: Denies Hearing Impairment: Denies Cancer: Yes Kidney Did You Recieve Any Treatments: Yes What Type of Treatment Did You: Surgical Intervention Psychosocial: Yes Anxiety, Depression Integumentary: No Herpes Blood Disorders: No Adverse Reaction/Blood Tranf: No (N/A) Family Medical History Cardiovascular disease 19 FATHER Completed stroke 19 FATHER Diabetes mellitus 19 FATHER Hypercholesterolemia 19 FATHER 19 MOTHER Hypertension 19 FATHER 19 MOTHER Neoplasm 19 MOTHER Psychosocial problem 19 FATHER 19 MOTHER No Pertinent Family Hx, Cancer, Diabetes, Hypertension PSH: -RIGHT KNEE SCOPE X 5 -LEFT KNEE SCOPE X 2 -TONSILLECTOMY / ADENOIDECTOMY -APPENDECTOMY -CHOLECYSTECTOMY -NASAL FRACTURE REPAIR -COCCYX REMOVAL -LEFT NEPHRECTOMY FOR MALIGNANCY -LEFT MID ABDOMEN INCISIONAL HERNIA REPAIR -DRAINAGE OF ABDOMINAL WALL ABSCESS -MULTIPLE EGD'S AND COLONOSCOPIES--LAST ONE DONE HERE 10/26/19 -HYSTERECTOMY / BILATERAL SALPINGO-OOPHORECTOMY 2007 -06/23/20--RIGHT CHEST WALL/SHOULDER INJECTION FOR THORACIC OUTLET SYNDROME--DONE IN -PORT REMOVED FROM LEFT CHEST 07/24/21 FOR NON-FUNCTIONING PORT-BY DR. MARROQUIN Physical Exam Vital Signs Vital Signs - First Documented 09/28/21 07:44 Temp 36.0 Pulse 92 Resp 21 B/P (MAP) 148/67 (94) Pulse Ox 99 O2 Delivery Room Air Capillary Refill : Less Than 3 Seconds Height, Weight, BMI Height: 5'3.00" Weight: 246lbs. 0oz. 111.334787se; 46.00 BMI Method:Stated General Appearance: No Apparent Distress, WD/WN, Obese HEENT: PERRL/EOMI, TMs Normal, Normal ENT Inspection, Pharynx Normal Neck: Normal Inspection Respiratory: No Accessory Muscle Use, No Respiratory Distress, Wheezing, Other (Mildly prolonged expiratory phase) Cardiovascular: Regular Rate, Rhythm, No Edema, No Murmur Gastrointestinal: Normal Bowel Sounds, Non Tender, Soft Extremity: Normal Inspection, Other (Right calf tenderness stated as being continuous since June and previously evaluated with ultrasound) Neurologic/Psychiatric: Alert, Oriented x3, No Motor/Sensory Deficits, awning frame maker II- XII Norm as Tested, Other (Mildly anxious) Skin: Normal Color, Warm/Dry Progress/Results/Core Measures Results/Orders Lab Results Laboratory Tests Test 09/28/21 07:40 Range/Units White Blood Count 8.9 4.3-11.0 10^3/uL Red Blood Count 4.54 3.80-5.11 10^6/uL Hemoglobin 12.4 11.5-16.0 g/dL Hematocrit 38 35-52 % Mean Corpuscular Volume 83 80-99 fL Mean Corpuscular Hemoglobin 27 25-34 pg Mean Corpuscular Hemoglobin Concent 33 32-36 g/dL Red Cell Distribution Width 13.6 10.0-14.5 % Platelet Count 258 130-400 10^3/uL Mean Platelet Volume 9.4 9.0-12.2 fL Immature Granulocyte % (Auto) 1 % Neutrophils (%) (Auto) 58 42-75 % Lymphocytes (%) (Auto) 33 12-44 % Monocytes (%) (Auto) 5 0-12 % Eosinophils (%) (Auto) 4 0-10 % Basophils (%) (Auto) 1 0-10 % Neutrophils # (Auto) 5.1 1.8-7.8 10^3/uL Lymphocytes # (Auto) 3.0 1.0-4.0 10^3/uL Monocytes # (Auto) 0.4 0.0-1.0 10^3/uL Eosinophils # (Auto) 0.3 0.0-0.3 10^3/uL Basophils # (Auto) 0.0 0.0-0.1 10^3/uL Immature Granulocyte # (Auto) 0.0 0.0-0.1 10^3/uL Prothrombin Time 13.1 12.2-14.7 SEC INR Comment 1.0 0.8-1.4 Activated Partial Thromboplast Time 30 24-35 SEC D-Dimer 0.52 H 0.00-0.49 UG/ML Sodium Level 139 135-145 MMOL/L Potassium Level 3.7 3.6-5.0 MMOL/L Chloride Level 105 98-107 MMOL/L Carbon Dioxide Level 20 L 21-32 MMOL/L Anion Gap 14 5-14 MMOL/L Blood Urea Nitrogen 12 7-18 MG/DL Creatinine 0.79 0.60-1.30 MG/DL Estimat Glomerular Filtration Rate 99 BUN/Creatinine Ratio 15 Glucose Level 138 H 70-105 MG/DL Calcium Level 9.5 8.5-10.1 MG/DL Corrected Calcium 9.4 8.5-10.1 MG/DL Magnesium Level 1.9 1.6-2.4 MG/DL Total Bilirubin 0.4 0.1-1.0 MG/DL Aspartate Amino Transf (AST/SGOT) 48 H 5-34 U/L Alanine Aminotransferase (ALT/SGPT) 53 0-55 U/L Alkaline Phosphatase 69 40-136 U/L Myoglobin 47.1 10.0-92.0 NG/ML Troponin I < 0.028 <0.028 NG/ML C-Reactive Protein High Sensitivity 0.81 H 0.00-0.50 MG/DL Total Protein 7.2 6.4-8.2 GM/DL Albumin 4.1 3.2-4.5 GM/DL Influenza Type A (RT-PCR) Not Detected Not Detecte Influenza Type B (RT-PCR) Not Detected Not Detecte SARS-CoV-2 RNA (RT-PCR) Not Detected Not Detecte My Orders Orders - IZABELA RENDON MD Covid 19 Inhouse Test (09/28/21 07:14) Influenza A And B By Pcr (09/28/21 07:14) Cbc With Automated Diff (09/28/21 07:28) Magnesium (09/28/21 07:28) Ekg Tracing (09/28/21 07:28) Comprehensive Metabolic Panel (09/28/21 07:28) Myoglobin Serum (09/28/21 07:28) Protime With Inr (09/28/21 07:28) Partial Thromboplastin Time (09/28/21 07:28) O2 (09/28/21 07:28) Monitor-Rhythm Ecg Trace Only (09/28/21 07:28) Ed Iv/Invasive Line Start (09/28/21 07:28) Troponin I David (09/28/21 07:28) Hs C Reactive Protein (09/28/21 07:59) Chest Pa/Lat (2 View) (09/28/21 08:44) Albuterol/Ipra Inhalation Soln (Duoneb I (09/28/21 09:00) Svn Small Volume Nebulizer (09/28/21 08:47) Fibrin Degradation Products (09/28/21 09:41) Enoxaparin Injection (Lovenox Injection) (09/28/21 10:45) Hydrocodone/Apap 5/325 Tablet (Lortab 5 (09/28/21 11:00) Lung Scan Perfusion (09/28/21 11:47) Medications Given in ED Vital Signs/I&O 09/28/21 09/28/21 09/28/21 07:44 09:24 15:37 Temp 36.0 36.0 Pulse 92 90 Resp 21 21 B/P (MAP) 148/67 (94) 138/92 Pulse Ox 99 99 99 O2 Delivery Room Air Room Air Room Air Blood Pressure Mean: 94 Progress Progress Note #1: Time: 12:39 Progress Note Cardiopulmonary work-up was unremarkable. Patient was further evaluated with D- dimer which was minimally elevated. We discussed the risks and benefits of pursuing further evaluation. Because patient has a single kidney, CT angiogram with contrast is not ideal. As an alternative, we will obtain a VQ scan. This plan was discussed with Dr. Gibbs. Although D-dimer is minimally elevated, patient does have a personal history of DVT and history of DVT in the family. Hydrocodone was given for pain. VQ scan is pending at this time. Since there was a lag time of hours before VQ scan was available, a dose of Lovenox was administered. Progress Note #2: Progress Note VQ scan was negative for evidence of pulmonary embolus. Patient was discharged home in stable condition. See discharge instructions. Initial ECG Impression Date: Sep 28, 2021 Initial ECG Impression Time: 07:36 Initial ECG Rate: 89 Initial ECG Rhythm: Normal Sinus Initial ECG Intervals: Normal Initial ECG Impression: Normal Comment Normal sinus rhythm with no ST elevation or depression. Subtle nondiagnostic ST changes. No abnormal intervals or axis deviation. Diagnostic Imaging Diagonstic Imaging: Xray Plain Films/CT/US/NM/MRI: chest Comments 2 view chest x-ray viewed by me and report reviewed. See report below: NAME: JAYLYN DELGADO [employer] REC#: [id number] PT STATUS: REG ER : 1985 PHYSICIAN: IZABELA RENDON MD ADMIT DATE: 09/28/21/ER Signed Date of Exam:09/28/21 CHEST PA/LAT (2 VIEW) EXAMINATION: Chest 2 view HISTORY: Cough. COMPARISON: 08/01/2021. FINDINGS: The lung volumes are normal. No focal consolidation is seen. No large pleural effusion or pneumothorax is seen. The cardiomediastinal silhouette is normal in size and contour. No acute osseous abnormality is seen. IMPRESSION: 1. No acute pleuroparenchymal process. Dictated by: Dictated on workstation # [id number] Dict: 09/28/21 0853 Trans: 09/28/21 09 CINDY [id number] Interpreted by: ADELA GATICA DO Electronically signed by: ADELA GATICA DO 09/28/21 0901 Diagonstic Imaging: Nuclear Med Plain Films/CT/US/NM/MRI: chest Comments VQ scan report reviewed. See below: NAME: JAYLYN DELGADO [facility] REC#: [id number] PT STATUS: REG ER : 1985 PHYSICIAN: IZABELA RENDON MD ADMIT DATE: 09/28/21/ER Signed Date of Exam:09/28/21 LUNG SCAN PERFUSION INDICATION: Chest pain and shortness of air. TECHNIQUE: Patient was administered 5.4 mCi technetium-99m MAA intravenously, and imaging over the chest was performed in multiple obliquities. COMPARISON: Comparison is made with chest radiograph from earlier the same day. FINDINGS: There is homogeneous perfusion of both lungs. No pleural-based perfusion defects are identified. IMPRESSION: Normal perfusion lung scan. Dictated by: Dictated on workstation # [id number] Dict: 09/28/21 1443 Trans: 09/28/21 1537 [id number] Interpreted by: RAZA GOLD MD Electronically signed by: RAZA GOLD MD 09/28/21 1537 Departure Impression Primary Impression: Pleuritic chest pain Additional Impressions: Acute bronchitis Qualified Codes: J20.9 - Acute bronchitis, unspecified Elevated d-dimer Disposition: 01 HOME, SELF-CARE Condition: Improved Departure-Patient Inst. Decision time for Depature: 10:48 Referrals: CARMEN GIBBS MD (PCP/Family) Primary Care Physician Patient Instructions: Acid Reflux and Gastroesophageal Reflux Disease in Adults, Acute Bronchitis, Pleuritic Chest Pain ED Add. Discharge Instructions: You may use your hydrocodone as previously prescribed for pain. Use your albuterol nebulizer treatments every 4 hours as needed for shortness of breath and wheezing. Keep your follow-up appointment with Dr. Gibbs. It is possible that your chest pain may be at least in part due to acid reflux. Try taking Pepcid twice daily for the next month. Let your primary care doctor know if this does not resolve your pain. Please read the educational material below. Return to the ER if you have worsening symptoms despite following these recommendations. All discharge instructions reviewed with patient and/or family. Voiced understanding. Scripts Famotidine (Pepcid) 20 Mg Tablet 20 MG PO BID, #60 TAB Prov: IZABELA RENDON MD 09/28/21 Copy Copies To 1: CARMEN GIBBS MD, JOSHUA T MD Sep 28, 2021 08:09
[2021-09-28 08:10] LABS: CREATININE SERUM 0.79 MG/DL (0.60-1.30); PROTHROMBIN TIME PATIENT 13.1 SEC (12.2-14.7)
[2021-09-28 08:13] LABS: MAGNESIUM 1.9 MG/DL (1.6-2.4)
--- NOTE | 2021-09-28 08:57 | Diagnostic Imaging Report ---
EXAMINATION: Chest 2 view HISTORY: Cough. COMPARISON: 08/01/2021. FINDINGS: The lung volumes are normal. No focal consolidation is seen. No large pleural effusion or pneumothorax is seen. The cardiomediastinal silhouette is normal in size and contour. No acute osseous abnormality is seen. IMPRESSION: 1. No acute pleuroparenchymal process. Dictated by: Dictated on workstation # [id number]
[2021-09-28] MEDS ORDERED: RT-ALBUTEROL/IPRATROPIUM 3 ML (DUONEB) VIAL INH ONE (09:00)
[2021-09-28] MEDS ORDERED: KETOROLAC 30 MG/ML VIAL IVP ONE (10:45)
[2021-09-28] MEDS ORDERED: ENOXAPARIN 60 MG/0.6 ML (LOVENOX) SYR SC ONE (10:45)
[2021-09-28] MEDS ORDERED: HYDROcodone/APAP 5 MG/325 MG (LORTAB) TAB PO ONE (11:00)
--- NOTE | 2021-09-28 14:46 | Diagnostic Imaging Report ---
INDICATION: Chest pain and shortness of air. TECHNIQUE: Patient was administered 5.4 mCi technetium-99m MAA intravenously, and imaging over the chest was performed in multiple obliquities. COMPARISON: Comparison is made with chest radiograph from earlier the same day. FINDINGS: There is homogeneous perfusion of both lungs. No pleural-based perfusion defects are identified. IMPRESSION: Normal perfusion lung scan. Dictated by: Dictated on workstation # [id number]
[2021-09-28 15:37] VITALS: BP 138/92
[2021-09-28] MEDS ORDERED: FAMO-119 PO (15:39)
[2021-09-29] MEDS ORDERED: ACET10SO PO (20:38)
== END 2021-09-28 15:37 | disposition home or self-care (01) ==
LOC: EDUNIT# 07:11 → ER 07:12
DX: R07.81 Pleurodynia (principal); J20.9 Acute bronchitis, unspecified; R79.89 Other specified abnormal findings of blood chemistry; E66.9 Obesity, unspecified; E11.9 Type 2 diabetes mellitus without complications; Z68.42 Body mass index [BMI] 45.0-49.9, adult; Z20.822 Contact with and (suspected) exposure to COVID-19
CPT/HCPCS: 36415; 71046; 80053; 83735; 83874; 84484; 85025; 85379; 85610; 85730; 86141; 87636; 93005; 93041; 94640

== ENCOUNTER 2021-09-29 19:31 | Emergency (ER) | payer MEDICARE, MEDICAID ==
[~2021-09-29] VITALS: Ht 160 cm; Wt 114.3 kg
--- NOTE | 2021-09-29 19:45 | ED Chest Pain ---
General Source: patient Exam Limitations: no limitations History of Present Illness Date Seen by Provider: Sep 29, 2021 Time Seen by Provider: 19:32 Initial Comments Patient is a 36-year-old female well-known to this emergency department who presents to the emergency room with a chief complaint of sharp left-sided chest pain. Patient states she was sitting in her floor when she had a sudden onset of sharp pain in the left side of her chest that seems to radiate into her left arm. She complains of feeling short of breath. No nausea or diaphoresis reported. No history of coronary artery disease. Patient just recently found out she is diabetic. She was seen in this emergency department yesterday and had a work-up for pulmonary embolism. This was reportedly negative. (confirmed by chart review - had VQ scan - perfusion only, was normal). minimally elevated ddimer yesterday. She does not smoke or drink. She has also a history of pancreatitis. Fighting a "sinus infection" since March. Has follow-up with ENT in the next month or 2. She denies any recent trauma or injury to the chest. All other review of systems reviewed and negative except as stated. Timing/Duration: 1/2 hour Severity/Quality: moderate ("6"), sharp Location: other (left chest and arm) Radiation: arms (left) Associated Symptoms: shortness of breath Allergies and Home Medications Allergies Coded Allergies: fentanyl (Verified Allergy, Unknown, 10/16/18) meperidine (Verified Allergy, Unknown, 10/16/18) penicillin G (Verified Allergy, Unknown, 10/16/18) prochlorperazine (Verified Allergy, Unknown, 03/15/21) trimethobenzamide (Unverified Allergy, Unknown, 09/05/20) vancomycin (Verified Adverse Reaction, Intermediate, severe itching, 10/26/19) Patient Home Medication List Home Medication List Reviewed: Yes Acetaminophen (Tylenol Extra Strength) 500 Mg Tablet, 1,000 MG PO Q8H PRN for PAIN-MILD (1-4), (Reported) Entered as Reported by: EMILIO SHEPPARD on 10/26/19811 Acetaminophen with Codeine (Acetaminop-Codein 240-24 mg/10) 10 Ml Solution, 10 ML PO Q6H PRN for cough Prescribed by: GEO BORJA on 09/29/212037 Albuterol Sulfate (Albuterol Sulfate) 2.5 Mg/0.5 Ml Vial.neb, 2.5 MG INH Q4H, (Reported) Entered as Reported by: GRIFFIN ORTEGA on 07/24/21 1145 Atorvastatin Calcium (Atorvastatin Calcium) 20 Mg Tablet, 20 MG PO HS, (Reported) Entered as Reported by: LEX HOSKINS on 12/07/20 0916 Benzonatate (Tessalon Perles) 100 Mg Capsule, 100 MG PO DAILY, (Reported) Entered as Reported by: GRIFFIN ORTEGA on 07/24/21 1145 Cyanocobalamin (Cyanocobalamin Injection) 1,000 Mcg/Ml Inj, 1,000 MCG IM MONTHLY, (Reported) Entered as Reported by: GRIFFIN ORTEGA on 07/24/21 1145 Cyclobenzaprine HCl (Cyclobenzaprine HCl) 10 Mg Tablet, 10 MG PO Q8H PRN for SPASMS Prescribed by: MAKAYLA HAWKINS on 02/28/21 0942 Dextromethorphan Polistirex (Delsym) 30 Mg/5 Ml Petty.er.12h, 10 ML PO BID, (Reported) Entered as Reported by: GRIFFIN ORTEGA on 07/24/21 1145 Diphenhydramine HCl (Benadryl) 25 Mg Capsule, 25 MG PO HS PRN for SLEEP, (Reported) Entered as Reported by: EMILIO SHEPPARD on 10/26/19 0812 Doxycycline Hyclate (Doxycycline Hyclate) 100 Mg Tablet, 100 MG PO BID, (Reported) Entered as Reported by: GRIFFIN ORTEGA on 07/24/21 1139 Estradiol (Estrace Tablet) 1 Mg Tablet, 1 MG PO DAILY, (Reported) Entered as Reported by: GRIFFIN ORTEGA on 07/24/21 1145 Famotidine (Pepcid) 20 Mg Tablet, 20 MG PO BID Prescribed by: IZABELA MAC on 09/28/21 1539 Glyburide (Glyburide) 2.5 Mg Tablet, 2.5 MG PO DAILY, (Reported) Entered as Reported by: GRIFFIN ORTEGA on 07/24/21 1145 Hydrocodone/Acetaminophen (Hydrocodone-Acetamin 5-325 mg) 1 Each Tablet, 2 EACH PO Q6H PRN for PAIN-MILD (1-4), (Reported) Entered as Reported by: EMILIO SHEPPARD on 10/26/19 0812 Metoclopramide HCl (Reglan) 5 Mg Tablet, 5 MG PO Q6H PRN for NAUSEA/VOMITING-3RD LINE Prescribed by: IZABELA MAC on 03/13/21 1301 Ondansetron (Ondansetron Odt) 8 Mg Tab.rapdis, 8 MG PO Q8H PRN for NAUSEA/VOMITING, (Reported) Entered as Reported by: EMILIO SHEPPARD on 10/26/19 0812 Promethazine HCl (Promethazine Tablet) 25 Mg Tablet, 25 MG PO Q6H PRN for NAUSEA/VOMITING, (Reported) Entered as Reported by: LEX HOSKINS on 12/07/20 0916 Ropinirole HCl (Ropinirole HCl) 4 Mg Tablet, 4 MG PO HS, (Reported) Entered as Reported by: LEX HOSKINS on 06/28/17 1010 Sertraline HCl (Sertraline HCl) 100 Mg Tablet, 100 MG PO HS, (Reported) Entered as Reported by: LEX HOSKINS on 12/07/20 0912 Sitagliptin Phos/Metformin HCl (Janumet Xr 50-1,000 mg Tablet) 1 Each Tbmp.24hr, 2 TAB-CAP PO DAILY@1900, (Reported) Entered as Reported by: LEX HOSKINS on 12/07/20 0916 Review of Systems Review of Systems Constitutional: see HPI EENTM: Nose Congestion Respiratory: Shortness of Air Cardiovascular: Chest Pain Gastrointestinal: No Symptoms Reported Genitourinary: No Symptoms Reported Musculoskeletal: no symptoms reported Skin: no symptoms reported Psychiatric/Neurological: Anxiety All Other Systems Reviewed Negative Unless Noted: Yes Past Hqebflc-Qlwepx-Locxmv Hx Immunizations Up To Date Tetanus Booster (TDap): Less than 5yrs PED Vaccines UTD: No First/Initial COVID19 Vaccinat: AUGUST 2021 Second COVID19 Vaccination Alvaro: unvaccinated Third COVID19 Vaccination Date: unvaccinated Seasonal Allergies Seasonal Allergies: No Past Medical History Surgery/Hospitalization HX: several surgeries including 1 kidney removal, appendectomy, cammie., and power port placement, POWER PORT REMOVAL Surgeries: Yes (hernia repair x2, knee scopes, port placement) Adenoidectomy, Appendectomy, Gallbladder, Hysterectomy, Nephrectomy, Orthopedic, Tonsillectomy Respiratory: Yes Asthma Currently Using CPAP: No Currently Using BIPAP: No Cardiac: No Hypertension Neurological: Yes Headaches /Migraines Reproductive Disorders: Yes (HX ENDOMETRIOSIS ) 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 Sexually Transmitted Disease: No HIV/AIDS: No Genitourinary: Yes (S/P NEPHRECTOMY) UTI-Chronic Gastrointestinal: Yes (CHRONIC ABD PAIN/N/V) Abdominal Hernia, Gastroesophageal Reflux, Liver Disease/Jaundice, Obstructive Bowel, Pancreatitis, Polyps Musculoskeletal: Yes (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) Chronic Back Pain Endocrine: Yes (OBESITY) Diabetes, Non-Insulin dep HEENT: No Loss of Vision: Denies Hearing Impairment: Denies Cancer: Yes Kidney Did You Recieve Any Treatments: Yes What Type of Treatment Did You: Surgical Intervention Psychosocial: Yes Anxiety, Depression Integumentary: No Herpes Blood Disorders: No Adverse Reaction/Blood Tranf: No (N/A) Family Medical History Cardiovascular disease 19 FATHER Completed stroke 19 FATHER Diabetes mellitus 19 FATHER Hypercholesterolemia 19 FATHER 19 MOTHER Hypertension 19 FATHER 19 MOTHER Neoplasm 19 MOTHER Psychosocial problem 19 FATHER 19 MOTHER No Pertinent Family Hx, Cancer, Diabetes, Hypertension PSH: -RIGHT KNEE SCOPE X 5 -LEFT KNEE SCOPE X 2 -TONSILLECTOMY / ADENOIDECTOMY -APPENDECTOMY -CHOLECYSTECTOMY -NASAL FRACTURE REPAIR -COCCYX REMOVAL -LEFT NEPHRECTOMY FOR MALIGNANCY -LEFT MID ABDOMEN INCISIONAL HERNIA REPAIR -DRAINAGE OF ABDOMINAL WALL ABSCESS -MULTIPLE EGD'S AND COLONOSCOPIES--LAST ONE DONE HERE 10/26/19 -HYSTERECTOMY / BILATERAL SALPINGO-OOPHORECTOMY 2007 -06/23/20--RIGHT CHEST WALL/SHOULDER INJECTION FOR THORACIC OUTLET SYNDROME--DONE IN -PORT REMOVED FROM LEFT CHEST 07/24/21 FOR NON-FUNCTIONING PORT-BY DR. MARROQUIN Physical Exam Vital Signs Vital Signs - First Documented 09/29/21 19:45 Temp 36.5 Pulse 98 Resp 20 B/P (MAP) 161/95 (117) Pulse Ox 99 O2 Delivery Room Air Capillary Refill : Height, Weight, BMI Height: 5'3.00" Weight: 246lbs. 0oz. [id number]; 46.00 BMI Method:Stated General Appearance: WD/WN, Anxious HEENT: PERRL/EOMI Neck: Normal Inspection Respiratory: Lungs Clear, Normal Breath Sounds, No Accessory Muscle Use, No Respiratory Distress Cardiovascular: Regular Rate, Rhythm (90's), Normal Peripheral Pulses, Other (no reproducible chest wall tenderness) Gastrointestinal: Normal Bowel Sounds (obese), Non Tender, Soft Extremity: Normal Capillary Refill, Normal Inspection, Normal Range of Motion, Non Tender, No Pedal Edema Neurologic/Psychiatric: Alert, Oriented x3, No Motor/Sensory Deficits, Other (mildly anxious) Skin: Normal Color, Warm/Dry Progress/Results/Core Measures Results/Orders Lab Results Laboratory Tests Test 09/29/21 20:41 Range/Units Glucometer 133 H 70-110 MG/DL My Orders Orders - GEO BORJA MD Ekg Tracing (09/29/21 19:38) Ketorolac Injection (Toradol Injection) (09/29/21 20:00) Orphenadrine Inj (Ed Only) (Norflex Inje (09/29/21 20:00) Accucheck Stat ONCE (09/29/21 19:55) Hydrocodone/Apap 7.5/325 Tab (Lortab 7. (09/29/21 20:39) Medications Given in ED Vital Signs/I&O 09/29/21 09/29/21 19:45 20:48 Temp 36.5 Pulse 98 95 Resp 20 14 B/P (MAP) 161/95 (117) 144/86 Pulse Ox 99 96 O2 Delivery Room Air Room Air Progress Progress Note : Time: 20:33 Progress Note Reevaluated, states that the Toradol and Norflex have not really helped much. Pulse remains in the low 90s blood pressure is 130/90. Respirations are 20-23. Pulse ox is 97%. She has multiple reasons for not being able to take other supp ortive medications such as saline nasal spray (it causes holes in her nose), Mucinex(after she had her kidney removed for cancer they told her she could not take it), ibuprofen(due to single kidney). She is running a humidifier at home. She has been using moist heat on her chest wall. She uses Claritin for her allergies. I recommended some Tylenol with codeine syrup for her cough which she states is mostly dry. She has follow-up with Dr. Gibbs, her primary care provider on Saturday. At this point with stable vital signs and reassuring exam I do not see an indication for further laboratory evaluation or imaging. She had 2 view chest x-ray and VQ scan yesterday. These were both read as normal. Labs were also normal. We will give her hydrocodone tablet here and send a prescription for Tylenol with codeine syrup to [facility]. I discussed return precautions with her, all questions are sought and answered. Patient is stable for discharge. Initial ECG Impression Date: Sep 29, 2021 Initial ECG Impression Time: 19:37 Initial ECG Rate: 94 Initial ECG Rhythm: Normal Sinus Initial ECG Intervals: Normal Comment base line wander precordial leads; no ST elevation or depression appreciated Departure Impression Primary Impression: Pleuritic chest pain Disposition: HOME, SELF-CARE Condition: Stable Departure-Patient Inst. Decision time for Depature: 20:35 Referrals: CARMEN GIBBS MD (PCP/Family) Primary Care Physician Patient Instructions: Pleuritic Chest Pain ED Add. Discharge Instructions: Continue to use moist heat pads to the left chest wall. Tylenol as needed for chest wall pain. I have also sent a prescription for Tylenol with codeine for your cough to the pharmacy. Please space the syrup apart from other Tylenol doses by 6 hours. Continue your breathing treatments as instructed. You can take a little extra Benadryl when you feel that itchy sensation in your throat. 1 to 2 tablets every 6 hours as needed. Please keep your follow-up appointment with Dr. Gibbs on Saturday. Return to the emergency department for any new, concerning or emergent complaints. Scripts Acetaminophen with Codeine (Acetaminop-Codein 240-24 mg/10) 10 Ml Solution 10 ML PO Q6H PRN for cough, #120 ML Prov: GEO BORJA MD 09/29/21 Copy Copies To 1: CARMEN GIBBS MD, KATHRYN M MD Sep 29, 2021 19:45
[2021-09-29] MEDS ORDERED: KETOROLAC 30 MG/ML VIAL IVP ONE (20:00)
[2021-09-29] MEDS ORDERED: ORPHENADRINE 60 MG/2 ML (NORFLEX) AMP (ED ONLY) IV ONE (20:00)
[2021-09-29] MEDS ORDERED: ACET10SO PO (20:38)
[2021-09-29] MEDS ORDERED: HYDROcodone/APAP 7.5 MG/325 MG (LORTAB, LORCET PLUS) TABLET PO STA (20:39)
[2021-09-29 20:48] VITALS: BP 144/86
== END 2021-09-29 20:54 | disposition home or self-care (01) ==
LOC: EDUNIT# 19:31 → ER 19:33
DX: R07.81 Pleurodynia (principal); E11.9 Type 2 diabetes mellitus without complications; E66.9 Obesity, unspecified; Z68.42 Body mass index [BMI] 45.0-49.9, adult
CPT/HCPCS: 82947; 93005

== ENCOUNTER 2021-10-08 17:38 | Emergency (ER) | payer MEDICARE, MEDICAID ==
[~2021-10-08] VITALS: Ht 160 cm; Wt 119.7 kg
[~2021-10-08 17:38] MED LIST changes: +ACET10SO PO
[2021-10-08] MEDS ORDERED: NS IV 1000 ML 1,000 ML IV STA (18:04)
[2021-10-08] MEDS ORDERED: KETOROLAC 30 MG/ML VIAL IVP ONE (18:15)
[2021-10-08] MEDS ORDERED: diphenhydrAMINE 50 MG/ML INJ (BENADRYL) IM ONE (18:15)
[2021-10-08] MEDS ORDERED: PROCHLORPERAZINE 10 MG/2ML INJ (COMPAZINE) IV ONE (18:15)
--- NOTE | 2021-10-08 18:21 | ED Headache ---
General Chief Complaint: Head/Cervical Problems Stated Complaint: HEADACHE/DX WITH BRONCHITIS Nursing Triage Note: PT PRESENTS TO ED VIA POV FROM HOME WITH COMPLAINTS OF MEJIA SINCE THIS MORNING. PT STATES SHE LAST TOOK A HYDROCODONE AT 1300. PT ALSO REPORTS EPISODES OF VOMITING TODAY WHEN HER BRONCHITIS WAS CAUSING HER TO COUGH. Source: patient Exam Limitations: no limitations (LYSSA MORALES) History of Present Illness Date Seen by Provider: Oct 08, 2021 Time Seen by Provider: 18:18 Initial Comments Patient is a 36-year-old female presents ED head pain dehydration and cough. She states she is developed a headache this morning when she woke up. No increasing pain. Pain located to the front part of the head with radiation to the back. Feels like her typical headaches after feeling dehydrated. She states she has been having a cough with sputum production with intermittent vomiting with the cough. She denies of any urinary symptoms besides decreased urine output. She states she feels dehydrated. No current chest pain or abdominal pain. She states she has a history of headaches and today's pain feels very similar. No fever, dizziness, visual changes sore throat or ear pain. She states the coughing has stayed about same and states she was diagnosed with bronchitis. She denies of any wheezing, stridor, chest pain, abdominal pain. (LYSSA MORALES) Allergies and Home Medications Allergies Coded Allergies: fentanyl (Verified Allergy, Unknown, 10/16/18) meperidine (Verified Allergy, Unknown, 10/16/18) penicillin G (Verified Allergy, Unknown, 10/16/18) prochlorperazine (Verified Allergy, Unknown, 03/15/21) trimethobenzamide (Unverified Allergy, Unknown, 09/05/20) vancomycin (Verified Adverse Reaction, Intermediate, severe itching, 10/26/19) Patient Home Medication List Home Medication List Reviewed: Yes (LYSSA MORALES) Acetaminophen (Tylenol Extra Strength) 500 Mg Tablet, 1,000 MG PO Q8H PRN for PAIN-MILD (1-4), (Reported) Entered as Reported by: EMILIO SHEPPARD on 10/26/19 0812 Acetaminophen with Codeine (Acetaminop-Codein 240-24 mg/10) 10 Ml Solution, 10 ML PO Q6H PRN for cough Prescribed by: GEO BORJA on 09/29/212037 Albuterol Sulfate (Albuterol Sulfate) 2.5 Mg/0.5 Ml Vial.neb, 2.5 MG INH Q4H, (Reported) Entered as Reported by: GRIFFIN ORTEGA on 07/24/21 114 Atorvastatin Calcium (Atorvastatin Calcium) 20 Mg Tablet, 20 MG PO HS, (Reported) Entered as Reported by: LEX HOSKINS on 12/07/20 0916 Benzonatate (Tessalon Perles) 100 Mg Capsule, 100 MG PO DAILY, (Reported) Entered as Reported by: GRIFFIN ORTEGA on 07/24/21 1145 Cyanocobalamin (Cyanocobalamin Injection) 1,000 Mcg/Ml Inj, 1,000 MCG IM MONTHLY, (Reported) Entered as Reported by: GRIFFIN ORTEGA on 07/24/21 1145 Cyclobenzaprine HCl (Cyclobenzaprine HCl) 10 Mg Tablet, 10 MG PO Q8H PRN for SPASMS Prescribed by: MAKAYLA HAWKINS on 02/28/21 0942 Dextromethorphan Polistirex (Delsym) 30 Mg/5 Ml Petty.er.12h, 10 ML PO BID, (Reported) Entered as Reported by: GRIFFIN ORTEGA on 07/24/21 1145 Diphenhydramine HCl (Benadryl) 25 Mg Capsule, 25 MG PO HS PRN for SLEEP, (Reported) Entered as Reported by: EMILIO SHEPPARD on 10/26/19 0812 Doxycycline Hyclate (Doxycycline Hyclate) 100 Mg Tablet, 100 MG PO BID, (Reported) Entered as Reported by: GRIFFIN ORTEGA on 07/24/21 1139 Estradiol (Estrace Tablet) 1 Mg Tablet, 1 MG PO DAILY, (Reported) Entered as Reported by: GRIFFIN ORTEGA on 07/24/21 1145 Famotidine (Pepcid) 20 Mg Tablet, 20 MG PO BID Prescribed by: IZABELA MAC on 09/28/21 1539 Glyburide (Glyburide) 2.5 Mg Tablet, 2.5 MG PO DAILY, (Reported) Entered as Reported by: GRIFFIN ORTEGA on 07/24/21 1145 Hydrocodone/Acetaminophen (Hydrocodone-Acetamin 5-325 mg) 1 Each Tablet, 2 EACH PO Q6H PRN for PAIN-MILD (1-4), (Reported) Entered as Reported by: EMILIO SHEPPARD on 10/26/19 0812 Metoclopramide HCl (Reglan) 5 Mg Tablet, 5 MG PO Q6H PRN for NAUSEA/VOMITING-3RD LINE Prescribed by: IZABELA MAC on 03/13/21 1301 Ondansetron (Ondansetron Odt) 8 Mg Tab.rapdis, 8 MG PO Q8H PRN for NAUSEA/VOMITING, (Reported) Entered as Reported by: EMILIO SHEPPARD on 10/26/19 0812 Promethazine HCl (Promethazine Tablet) 25 Mg Tablet, 25 MG PO Q6H PRN for NAUSEA/VOMITING, (Reported) Entered as Reported by: LEX HOSKINS on 12/07/20 0916 Ropinirole HCl (Ropinirole HCl) 4 Mg Tablet, 4 MG PO HS, (Reported) Entered as Reported by: LEX HOSKINS on 06/28/17 1010 Sertraline HCl (Sertraline HCl) 100 Mg Tablet, 100 MG PO HS, (Reported) Entered as Reported by: LEX HOSKINS on 12/07/20 0912 Sitagliptin Phos/Metformin HCl (Janumet Xr 50-1,000 mg Tablet) 1 Each Tbmp.24hr, 2 TAB-CAP PO DAILY@1900, (Reported) Entered as Reported by: LEX HOSKINS on 12/07/20 0916 Review of Systems Review of Systems Constitutional: No chills, No diaphoresis, No fever, No malaise, No weakness Eyes: Denies Blurred Vision, Denies Drainage, Denies Decreased Acuity Ears, Nose, Mouth, Throat: denies ear pain, denies ear discharge Respiratory: cough; No hemoptysis, No orthopnea, No wheezing Cardiovascular: No edema, No syncope Gastrointestinal: No abdominal pain, No constipation, No diarrhea, No nausea, No vomiting Musculoskeletal: No back pain, No joint pain, No joint swelling, No muscle pain, No muscle stiffness Skin: No change in color, No change in hair/nails (LYSSA MORALES) All Other Systems Reviewed Negative Unless Noted: Yes (LYSSA MORALES) Past Wckmhgt-Iltvxu-Klxgyk Hx Patient Social History Tobacco Use?: No Substance use?: No Alcohol Use?: No Pt feels they are or have been: No (LYSSA MORALES) Immunizations Up To Date Tetanus Booster (TDap): Less than 5yrs PED Vaccines UTD: No First/Initial COVID19 Vaccinat: AUGUST 2021 Second COVID19 Vaccination Alvaro: AUGUST 2021 Third COVID19 Vaccination Date: AUGUST 2021 (LYSSA MORALES) Seasonal Allergies Seasonal Allergies: No (LYSSA MORALES) Past Medical History Surgery/Hospitalization HX: several surgeries including 1 kidney removal, appendectomy, cammie., and power port placement, POWER PORT REMOVAL Surgeries: Yes (hernia repair x2, knee scopes, port placement) Adenoidectomy, Appendectomy, Gallbladder, Hysterectomy, Nephrectomy, Orthopedic, Tonsillectomy Respiratory: Yes Asthma Currently Using CPAP: No Currently Using BIPAP: No Cardiac: No Hypertension Neurological: Yes Headaches /Migraines Reproductive Disorders: Yes (HX ENDOMETRIOSIS ) 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 Sexually Transmitted Disease: No HIV/AIDS: No Genitourinary: Yes (S/P NEPHRECTOMY) UTI-Chronic Gastrointestinal: Yes (CHRONIC ABD PAIN/N/V) Abdominal Hernia, Gastroesophageal Reflux, Liver Disease/Jaundice, Obstructive Bowel, Pancreatitis, Polyps Musculoskeletal: Yes (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) Chronic Back Pain Endocrine: Yes (OBESITY) Diabetes, Non-Insulin dep HEENT: No Loss of Vision: Denies Hearing Impairment: Denies Cancer: Yes Kidney Did You Recieve Any Treatments: Yes What Type of Treatment Did You: Surgical Intervention Psychosocial: Yes Anxiety, Depression Integumentary: No Herpes Blood Disorders: No Adverse Reaction/Blood Tranf: No (N/A) (LYSSA MORALES) Family Medical History Cardiovascular disease 19 FATHER Completed stroke 19 FATHER Diabetes mellitus 19 FATHER Hypercholesterolemia 19 FATHER 19 MOTHER Hypertension 19 FATHER 19 MOTHER Neoplasm 19 MOTHER Psychosocial problem 19 FATHER 19 MOTHER No Pertinent Family Hx, Cancer, Diabetes, Hypertension PSH: -RIGHT KNEE SCOPE X 5 -LEFT KNEE SCOPE X 2 -TONSILLECTOMY / ADENOIDECTOMY -APPENDECTOMY -CHOLECYSTECTOMY -NASAL FRACTURE REPAIR -COCCYX REMOVAL -LEFT NEPHRECTOMY FOR MALIGNANCY -LEFT MID ABDOMEN INCISIONAL HERNIA REPAIR -DRAINAGE OF ABDOMINAL WALL ABSCESS -MULTIPLE EGD'S AND COLONOSCOPIES--LAST ONE DONE HERE 10/26/19 -HYSTERECTOMY / BILATERAL SALPINGO-OOPHORECTOMY 2007 -06/23/20--RIGHT CHEST WALL/SHOULDER INJECTION FOR THORACIC OUTLET SYNDROME--DONE IN -PORT REMOVED FROM LEFT CHEST 07/24/21 FOR NON-FUNCTIONING PORT-BY DR. MARROQUIN (LYSSA MORALES) Physical Exam Vital Signs Vital Signs - First Documented 10/08/21 10/08/21 17:47 19:05 Temp 35.8 Pulse 103 Resp 18 B/P (MAP) 164/79 (107) Pulse Ox 96 O2 Delivery Room Air (IZABELA RENDON MD) Vital Signs Capillary Refill : Less Than 3 Seconds (LYSSA MORALES) Height, Weight, BMI Height: 5'3.00" Weight: 246lbs. 0oz. 111.613575kr; 46.00 BMI Method:Stated General Appearance: WD/WN, no apparent distress HEENT: PERRL/EOMI, normal ENT inspection, TMs normal, pharynx normal Neck: non-tender, full range of motion, supple Cardiovascular: regular rate, rhythm, no edema, no gallop, no JVD Respiratory: chest non-tender, lungs clear, normal breath sounds, no respiratory distress, no accessory muscle use Gastrointestinal: normal bowel sounds, non tender, soft, no organomegaly, no pulsatile mass Back: normal inspection, no CVA tenderness, no vertebral tenderness Extremities: normal range of motion, non-tender, normal inspection, no pedal edema Psychiatric: alert, oriented x 3, disoriented x 3 Motor/Sensory: no motor deficit, no sensory deficit Skin: normal color, warm/dry Lymphatic: no adenopathy (LYSSA MORALES) Progress/Results/Core Measures Results/Orders Lab Results Laboratory Tests Test 10/08/21 18:15 Range/Units White Blood Count 9.6 4.3-11.0 10^3/uL Red Blood Count 4.67 3.80-5.11 10^6/uL Hemoglobin 12.5 11.5-16.0 g/dL Hematocrit 39 35-52 % Mean Corpuscular Volume 84 80-99 fL Mean Corpuscular Hemoglobin 27 25-34 pg Mean Corpuscular Hemoglobin Concent 32 32-36 g/dL Red Cell Distribution Width 13.7 10.0-14.5 % Platelet Count 261 130-400 10^3/uL Mean Platelet Volume 9.3 9.0-12.2 fL Immature Granulocyte % (Auto) 0 % Neutrophils (%) (Auto) 51 42-75 % Lymphocytes (%) (Auto) 36 12-44 % Monocytes (%) (Auto) 5 0-12 % Eosinophils (%) (Auto) 7 0-10 % Basophils (%) (Auto) 1 0-10 % Neutrophils # (Auto) 4.9 1.8-7.8 10^3/uL Lymphocytes # (Auto) 3.5 1.0-4.0 10^3/uL Monocytes # (Auto) 0.4 0.0-1.0 10^3/uL Eosinophils # (Auto) 0.7 H 0.0-0.3 10^3/uL Basophils # (Auto) 0.1 0.0-0.1 10^3/uL Immature Granulocyte # (Auto) 0.0 0.0-0.1 10^3/uL Sodium Level 143 135-145 MMOL/L Potassium Level 3.9 3.6-5.0 MMOL/L Chloride Level 105 98-107 MMOL/L Carbon Dioxide Level 23 21-32 MMOL/L Anion Gap 15 H 5-14 MMOL/L Blood Urea Nitrogen 12 7-18 MG/DL Creatinine 0.80 0.60-1.30 MG/DL Estimat Glomerular Filtration Rate 97 BUN/Creatinine Ratio 15 Glucose Level 145 H 70-105 MG/DL Calcium Level 9.5 8.5-10.1 MG/DL Corrected Calcium 9.4 8.5-10.1 MG/DL Total Bilirubin 0.4 0.1-1.0 MG/DL Aspartate Amino Transf (AST/SGOT) 33 5-34 U/L Alanine Aminotransferase (ALT/SGPT) 40 0-55 U/L Alkaline Phosphatase 67 40-136 U/L Total Protein 7.2 6.4-8.2 GM/DL Albumin 4.1 3.2-4.5 GM/DL (IZABELA RENDON MD) Medications Given in ED Current Medications Medications Dose Ordered Sig/Neal Route Start Time Stop Time Status Last Admin Dose Admin Diphenhydramine HCl 25 mg ONCE ONCE IVP 10/08/21 18:30 10/08/21 18:31 DC 10/08/21 18:29 25 MG Ketorolac Tromethamine 30 mg ONCE ONCE IVP 10/08/21 18:15 10/08/21 18:16 DC 10/08/21 18:20 30 MG Prochlorperazine Edisylate 10 mg ONCE ONCE IV 10/08/21 18:15 10/08/21 18:16 DC 10/08/21 18:20 10 MG (IZABELA RENDON MD) Vital Signs/I&O 10/08/21 10/08/21 17:47 19:05 Temp 35.8 Pulse 103 92 Resp 18 18 B/P (MAP) 164/79 (107) 160/72 Pulse Ox 96 97 O2 Delivery Room Air (IZABELA RENDON MD) Blood Pressure Mean: 107 Departure Communication (PCP) Patient presents the ED with headache. Similar type headache in the past. She is concerned for dehydration. Was given a liter of fluid and migraine cocktail with resolution of headache. She reports a cough diagnosed with bronchitis. Chest x-ray negative for pneumonia. Lab work otherwise unremarkable. Patient was requesting to be discharged. Patient denies worst headache of her life. No meningeal signs. Afebrile. Return precaution were discussed. Patient was not able to provide urine sample. Not concern for . If any urinary symptoms do develop outpatient follow-up with urinalysis. (LYSSA MORALES) Impression Primary Impression: Headache Disposition: 01 HOME, SELF-CARE Condition: Stable Departure-Patient Inst. Decision time for Depature: 18:59 (LYSSA MORALES) Referrals: CARMEN GIBBS MD (PCP/Family) Primary Care Physician Patient Instructions: Headache, Adult ATTENDING PHYSICIAN NOTE: I was physically present as attending physician in the emergency department during the care of this patient, but I was not directly involved in the decision making or delivery of care for this patient. (IZABELA RENDON MD) LYSSA MORALES Oct 08, 2021 18:21 IZABELA RENDON MD Oct 08, 2021 19:21
[2021-10-08 18:22] LABS: BASOPHILS # (AUTO) 0.1 10^3/uL (0.0-0.1); BASOPHILS % (AUTO) 1 % (0-10); EOSINOPHILS # (AUTO) 0.7 10^3/uL (0.0-0.3); EOSINOPHILS % (AUTO) 7 % (0-10); HEMATOCRIT 39 % (35-52); HEMOGLOBIN 12.5 g/dL (11.5-16.0); LYMPHOCYTES # (AUTO) 3.5 10^3/uL (1.0-4.0); LYMPHOCYTES % (AUTO) 36 % (12-44); MEAN CORPUSCULAR HEMOGLOBIN 27 pg (25-34); MEAN CORPUSCULAR HGB CONC 32 g/dL (32-36); MEAN CORPUSCULAR VOLUME 84 fL (80-99); MEAN PLATELET VOLUME 9.3 fL (9.0-12.2); MONOCYTES # (AUTO) 0.4 10^3/uL (0.0-1.0); MONOCYTES % (AUTO) 5 % (0-12); NEUTROPHILS # (AUTO) 4.9 10^3/uL (1.8-7.8); NEUTROPHILS % (AUTO) 51 % (42-75); PLATELET COUNT 261 10^3/uL (130-400); WHITE BLOOD COUNT 9.6 10^3/uL (4.3-11.0)
--- NOTE | 2021-10-08 18:23 | Diagnostic Imaging Report ---
EXAMINATION: Chest radiograph, portable AP view. DATE: 10/08/2021 6:20 PM INDICATION: 36-year-old female, shortness of breath. COMPARISON: August 01, 2021. FINDINGS: Heart size and mediastinal contours are unchanged. There is no identified pneumothorax. There is no large pleural effusion. There is no identified focal airspace consolidation. There are technical limitations of the study relating to patient body habitus and difficulties with exposure. IMPRESSION: No identified acute cardiopulmonary abnormality. Dictated by: Dictated on workstation # [id number]
[2021-10-08 18:29] LABS: ALBUMIN 4.1 GM/DL (3.2-4.5)
[2021-10-08 18:30] LABS: POTASSIUM 3.9 MMOL/L (3.6-5.0)
[2021-10-08] MEDS ORDERED: diphenhydrAMINE 50 MG/ML INJ (BENADRYL) IVP ONE (18:30)
[2021-10-08 18:31] LABS: CALCIUM 9.5 MG/DL (8.5-10.1)
[2021-10-08 18:32] LABS: TOTAL PROTEIN 7.2 GM/DL (6.4-8.2)
[2021-10-08 18:34] LABS: BILIRUBIN,TOTAL 0.4 MG/DL (0.1-1.0)
[2021-10-08 18:35] LABS: CREATININE SERUM 0.8 MG/DL (0.60-1.30)
[2021-10-08 19:05] VITALS: BP 160/72
== END 2021-10-08 19:06 | disposition home or self-care (01) ==
LOC: EDUNIT# 17:38 → ER 17:40
DX: R51.9 Headache, unspecified (principal); E66.9 Obesity, unspecified
CPT/HCPCS: 36415; 71045; 80053; 85025

== ENCOUNTER 2021-10-11 08:52 | Emergency (ER) | payer MEDICARE, MEDICAID ==
[~2021-10-11] VITALS: Ht 160 cm; Wt 115.2 kg
[2021-10-11] MEDS ORDERED: ALPRAZolam 0.5 MG (XANAX) TAB PO STA (12:20)
--- NOTE | 2021-10-11 12:48 | Diagnostic Imaging Report ---
CLINICAL INDICATION: Patient with left arm numbness and weakness from elbow to fingers x 2 days. Patient with left shoulder pain. Patient has history of kidney cancer. EXAM: MRI of the brain performed without IV contrast. Sequences include axial DWI, ADC map, axial gradient echo, axial FLAIR, axial T2, and axial T1. COMPARISON: Head CT without contrast dated 10/24/2020. FINDINGS: There is significant motion artifact which limits evaluation of the brain parenchyma. 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 There is no evidence of acute cerebral infarct, intracranial hemorrhage, or gross mass effect. The brain parenchymal volume appears appropriate for patient's age. There is normal gruber-white matter distinction. There is no significant midline shift or herniation. The [place] vascular structures show no gross abnormality as visualized. The pituitary gland, sella, and suprasellar regions are unremarkable as visualized. There is no evidence of hydrocephalus. The basal cisterns are unremarkable. The skull, extracranial soft tissue, and orbits are unremarkable. There is mild mucosal thickening involving the right maxillary sinus and ethmoid sinus. Temporal bones show no significant abnormality. IMPRESSION: 1: There is motion artifact which greatly limits evaluation of the brain parenchyma. There is no gross evidence of an acute intracranial process. 2: The brain parenchyma shows no significant abnormality. 3: Mild paranasal sinus disease. Dictated by: Dictated on workstation # [id number]
[2021-10-11] MEDS ORDERED: GABA300C PO (15:52)
--- NOTE | 2021-10-11 15:52 | ED Neurological Problem ---
General Chief Complaint: Upper Extremity Stated Complaint: NUMBNESS/WEAKNESS LEFT ARM Nursing Triage Note: PT SENT BY [facility] FOR FURTHER EVALUATION FOR LEFT ARM NUMBNESS AND WEAKNESS. STATES SHE NORMALLY HAS THIS, BUT CANT SHAKE IT OFF TODAY LIKE SHE NORMALLY DOES. GOES FROM ELBOW TO FINGERS. Source: patient Exam Limitations: no limitations History of Present Illness Date Seen by Provider: Oct 11, 2021 Allergies and Home Medications Allergies Coded Allergies: fentanyl (Verified Allergy, Unknown, 10/16/18) meperidine (Verified Allergy, Unknown, 10/16/18) penicillin G (Verified Allergy, Unknown, 10/16/18) prochlorperazine (Verified Allergy, Unknown, 03/15/21) trimethobenzamide (Unverified Allergy, Unknown, 09/05/20) vancomycin (Verified Adverse Reaction, Intermediate, severe itching, 10/26/19) Patient Home Medication List Acetaminophen (Tylenol Extra Strength) 500 Mg Tablet, 1,000 MG PO Q8H PRN for PAIN-MILD (1-4), (Reported) Entered as Reported by: EMILIO SHEPPARD on 10/26/19 0812 Acetaminophen with Codeine (Acetaminop-Codein 240-24 mg/10) 10 Ml Solution, 10 ML PO Q6H PRN for cough Prescribed by: GEO BORJA on 09/29/212037 Albuterol Sulfate (Albuterol Sulfate) 2.5 Mg/0.5 Ml Vial.neb, 2.5 MG INH Q4H, (Reported) Entered as Reported by: GRIFFIN ORTEGA on 07/24/21 1145 Atorvastatin Calcium (Atorvastatin Calcium) 20 Mg Tablet, 20 MG PO HS, (Reported) Entered as Reported by: LEX HOSKINS on 12/07/20 0916 Benzonatate (Tessalon Perles) 100 Mg Capsule, 100 MG PO DAILY, (Reported) Entered as Reported by: GRIFFIN ORTEGA on 07/24/21 1145 Cyanocobalamin (Cyanocobalamin Injection) 1,000 Mcg/Ml Inj, 1,000 MCG IM MONTHLY, (Reported) Entered as Reported by: GRIFFIN ORTEGA on 07/24/21 1145 Cyclobenzaprine HCl (Cyclobenzaprine HCl) 10 Mg Tablet, 10 MG PO Q8H PRN for SPASMS Prescribed by: MAKAYLA HAWKINS on 02/28/21 0942 Dextromethorphan Polistirex (Delsym) 30 Mg/5 Ml Petty.er.12h, 10 ML PO BID, (Reported) Entered as Reported by: GRIFFIN ORTEGA on 07/24/21 1145 Diphenhydramine HCl (Benadryl) 25 Mg Capsule, 25 MG PO HS PRN for SLEEP, (Reported) Entered as Reported by: EMILIO SHEPPARD on 10/26/19 0812 Doxycycline Hyclate (Doxycycline Hyclate) 100 Mg Tablet, 100 MG PO BID, (Reported) Entered as Reported by: GRIFFIN ORTEGA on 07/24/21 1139 Estradiol (Estrace Tablet) 1 Mg Tablet, 1 MG PO DAILY, (Reported) Entered as Reported by: GRIFFIN ORTEGA on 07/24/21 1145 Famotidine (Pepcid) 20 Mg Tablet, 20 MG PO BID Prescribed by: IZABELA MAC on 09/28/21 1539 Glyburide (Glyburide) 2.5 Mg Tablet, 2.5 MG PO DAILY, (Reported) Entered as Reported by: GRIFFIN ORTEGA on 07/24/21 1145 Hydrocodone/Acetaminophen (Hydrocodone-Acetamin 5-325 mg) 1 Each Tablet, 2 EACH PO Q6H PRN for PAIN-MILD (1-4), (Reported) Entered as Reported by: EMILIO SHEPPARD on 10/26/19 0812 Metoclopramide HCl (Reglan) 5 Mg Tablet, 5 MG PO Q6H PRN for NAUSEA/VOMITING-3RD LINE Prescribed by: IZABELA MAC on 03/13/21 1301 Ondansetron (Ondansetron Odt) 8 Mg Tab.rapdis, 8 MG PO Q8H PRN for NAUSEA/VOMITING, (Reported) Entered as Reported by: EMILIO SHEPPARD on 10/26/19 0812 Promethazine HCl (Promethazine Tablet) 25 Mg Tablet, 25 MG PO Q6H PRN for NAUSEA/VOMITING, (Reported) Entered as Reported by: LEX HOSKINS on 12/07/20 0916 Ropinirole HCl (Ropinirole HCl) 4 Mg Tablet, 4 MG PO HS, (Reported) Entered as Reported by: LEX HOSKINS on 06/28/17 1010 Sertraline HCl (Sertraline HCl) 100 Mg Tablet, 100 MG PO HS, (Reported) Entered as Reported by: LEX HOSKINS on 12/07/20 0912 Sitagliptin Phos/Metformin HCl (Janumet Xr 50-1,000 mg Tablet) 1 Each Tbmp.24hr, 2 TAB-CAP PO DAILY@1900, (Reported) Entered as Reported by: LEX HOSKINS on 12/07/20 0916 Past Abaxsyz-Ovjkdf-Vzrsee Hx Patient Social History Tobacco Use?: No Use of E-Cig and/or Vaping dev: No Substance use?: No Alcohol Use?: No Pt feels they are or have been: No Immunizations Up To Date Tetanus Booster (TDap): Less than 5yrs PED Vaccines UTD: No First/Initial COVID19 Vaccinat: AUGUST 2021 Second COVID19 Vaccination Alvaro: AUGUST 2021 Third COVID19 Vaccination Date: AUGUST 2021 Seasonal Allergies Seasonal Allergies: No Past Medical History Surgery/Hospitalization HX: several surgeries including 1 kidney removal, appendectomy, cammie., and power port placement, POWER PORT REMOVAL Surgeries: Yes (hernia repair x2, knee scopes, port placement) Adenoidectomy, Appendectomy, Gallbladder, Hysterectomy, Nephrectomy, Orthopedic, Tonsillectomy Respiratory: Yes Asthma Currently Using CPAP: No Currently Using BIPAP: No Cardiac: No Hypertension Neurological: Yes Headaches /Migraines Reproductive Disorders: Yes (HX ENDOMETRIOSIS ) 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: 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 Sexually Transmitted Disease: No HIV/AIDS: No Genitourinary: Yes (S/P NEPHRECTOMY) UTI-Chronic Gastrointestinal: Yes (CHRONIC ABD PAIN/N/V) Abdominal Hernia, Gastroesophageal Reflux, Liver Disease/Jaundice, Obstructive Bowel, Pancreatitis, Polyps Musculoskeletal: Yes (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) Chronic Back Pain Endocrine: Yes (OBESITY) Diabetes, Non-Insulin dep HEENT: No Loss of Vision: Denies Hearing Impairment: Denies Cancer: Yes Kidney Did You Recieve Any Treatments: Yes What Type of Treatment Did You: Surgical Intervention Psychosocial: Yes Anxiety, Depression Integumentary: No Herpes Blood Disorders: No Adverse Reaction/Blood Tranf: No (N/A) Family Medical History Cardiovascular disease 19 FATHER Completed stroke 19 FATHER Diabetes mellitus 19 FATHER Hypercholesterolemia 19 FATHER 19 MOTHER Hypertension 19 FATHER 19 MOTHER Neoplasm 19 MOTHER Psychosocial problem 19 FATHER 19 MOTHER No Pertinent Family Hx, Cancer, Diabetes, Hypertension PSH: -RIGHT KNEE SCOPE X 5 -LEFT KNEE SCOPE X 2 -TONSILLECTOMY / ADENOIDECTOMY -APPENDECTOMY -CHOLECYSTECTOMY -NASAL FRACTURE REPAIR -COCCYX REMOVAL -LEFT NEPHRECTOMY FOR MALIGNANCY -LEFT MID ABDOMEN INCISIONAL HERNIA REPAIR -DRAINAGE OF ABDOMINAL WALL ABSCESS -MULTIPLE EGD'S AND COLONOSCOPIES--LAST ONE DONE HERE 10/26/19 -HYSTERECTOMY / BILATERAL SALPINGO-OOPHORECTOMY 2007 -06/23/20--RIGHT CHEST WALL/SHOULDER INJECTION FOR THORACIC OUTLET SYNDROME--DONE IN -PORT REMOVED FROM LEFT CHEST 07/24/21 FOR NON-FUNCTIONING PORT-BY DR. MARROQUIN Physical Exam Vital Signs Vital Signs - First Documented 10/11/21 09:01 Temp 37.2 Pulse 96 Resp 20 B/P (MAP) 139/103 (115) Pulse Ox 98 O2 Delivery Room Air Capillary Refill : Less Than 3 Seconds Height, Weight, BMI Height: 5'3.00" Weight: 246lbs. 0oz. 111.145695nl; 45.00 BMI Method:Stated Progress/Results/Core Measures Results/Orders My Orders Orders - IZABELA RENDON MD Mri Brain W/O Contrast (10/11/21 09:14) Alprazolam Tablet (Xanax Tablet) (10/11/21 12:20) Vital Signs/I&O 10/11/21 09:01 Temp 37.2 Pulse 96 Resp 20 B/P (MAP) 139/103 (115) Pulse Ox 98 O2 Delivery Room Air Blood Pressure Mean: 115 Departure Impression Primary Impression: Pain and numbness of left upper extremity Additional Impression: Muscle weakness of left upper extremity Disposition: HOME, SELF-CARE Condition: Stable Departure-Patient Inst. Decision time for Depature: 15:49 Referrals: CARMEN GIBBS MD (PCP/Family) Primary Care Physician Patient Instructions: Paresthesia (DC), Thoracic Outlet Syndrome, Thoracic Outlet Syndrome Exercises Add. Discharge Instructions: The exact cause of your pain, weakness, and numbness is uncertain. Stroke seems rather unlikely as no evidence of stroke was seen on the MRI. There may be some type of nerve or spinal cord impingement in the cervical spine. This could potentially be evaluated at a later date if an adequate treatment to reduce the motion artifact could be attempted. Try gabapentin (Neurontin) for treatment of the pain. Follow-up with Dr. Gibbs as soon as possible. Return to the emergency room if you have progression of neurologic deficits or escalating pain. All discharge instructions reviewed with patient and/or family. Voiced un derstanding. Scripts Gabapentin (Neurontin) 300 Mg Capsule 300 MG PO TID PRN for PAIN-MODERATE (5-7), #20 CAP Prov: IZABELA RENDON MD 10/11/21 IZABELA RENDON MD Oct 11, 2021 15:52
[2021-10-11 16:01] VITALS: BP 135/86
== END 2021-10-11 16:01 | disposition home or self-care (01) ==
LOC: EDUNIT# 08:52 → ER 08:54
DX: M79.622 Pain in left upper arm (principal); R20.0 Anesthesia of skin; R53.1 Weakness; E66.9 Obesity, unspecified; E11.9 Type 2 diabetes mellitus without complications; Z68.42 Body mass index [BMI] 45.0-49.9, adult
CPT/HCPCS: 70551

== ENCOUNTER 2021-10-29 12:59 | Emergency (ER) | payer MEDICARE, MEDICAID ==
[~2021-10-29 12:59] MED LIST changes: +GABA300C PO
[2021-10-29] MEDS ORDERED: PROMETHAZINE INJ 25 MG/ML (PHENERGAN) AMP IVP STA (13:52)
[2021-10-29] MEDS ORDERED: NS IV 1000 ML 1,000 ML IV STA ×2 (13:52→15:07)
[2021-10-29] MEDS ORDERED: diphenhydrAMINE 50 MG/ML INJ (BENADRYL) IV STA (13:52)
[2021-10-29 14:07] LABS: BILIRUBIN,URINE NEGATIVE (NEGATIVE); CLARITY,URINE CLEAR; COLOR,URINE YELLOW; GLUCOSE, URINE (UA) NEGATIVE (NEGATIVE); KETONES,URINE NEGATIVE (NEGATIVE); LEUKOCYTE ESTERASE ,URINE NEGATIVE (NEGATIVE); NITRITE,URINE NEGATIVE (NEGATIVE); PH,URINE 5.5 (5-9); PROTEIN,URINE NEGATIVE (NEGATIVE)
--- NOTE | 2021-10-29 14:09 | ED GI ---
General Chief Complaint: Abdominal/GI Problems Stated Complaint: NAUSEA Nursing Triage Note: PT AMB TO [facility] WITH C/O MEJIA, RLQ PAIN AND NAUSEA SINCE SATURDAY. PT WENT TO [facility] YESTERDAY Source of Information: Patient Exam Limitations: No Limitations History of Present Illness Date Seen by Provider: October 29, 2021 Time Seen by Provider: 13:46 Initial Comments Here with report of concerns of dehydration. Has had nausea since last Sat, 5 days ago. Also has some right-sided abdominal pain. Was seen in clinic and they could not get an IV started so they told her that she might want to try here. She is to have port accessed but it failed and no longer available. Reports decreased urination. Denies fever, chills, sore throat, runny nose or cough. Nausea is fairly typical. She has been alternating her n ausea medicines including Phenergan, Zofran and Reglan. Last took some Zofran today. Still has nausea. She does have mild headache that is affecting the left side and states she believes it is from dehydration. Denies dysuria or diarrhea. She does follow with GI. Has had some recent elevations in her pancreas enzymes and takes pancreas supplements. Timing/Duration: 5-6 Days Severity/Quality: Mild, Aching Location: RUQ, RLQ Radiation: No Radiation Modifying Factors: Worsens With Eating Associated Symptoms: No Back Pain, No Chest Pain, No Fever/Chills; Fatigue, Nausea/Vomiting; No Shortness of Air, No Weakness Allergies and Home Medications Allergies Coded Allergies: fentanyl (Verified Allergy, Unknown, 10/16/18) meperidine (Verified Allergy, Unknown, 10/16/18) penicillin G (Verified Allergy, Unknown, 10/16/18) prochlorperazine (Verified Allergy, Unknown, 03/15/21) trimethobenzamide (Unverified Allergy, Unknown, 09/05/20) vancomycin (Verified Adverse Reaction, Intermediate, severe itching, 10/26/19) Patient Home Medication List Home Medication List Reviewed: Yes Acetaminophen (Tylenol Extra Strength) 500 Mg Tablet, 1,000 MG PO Q8H PRN for PAIN-MILD (1-4), (Reported) Entered as Reported by: EMILIO SHEPPARD on 10/26/19 0812 Acetaminophen with Codeine (Acetaminop-Codein 240-24 mg/10) 10 Ml Solution, 10 ML PO Q6H PRN for cough Prescribed by: GEO BORJA on 09/29/212037 Albuterol Sulfate (Albuterol Sulfate) 2.5 Mg/0.5 Ml Vial.neb, 2.5 MG INH Q4H, (Reported) Entered as Reported by: GRIFFIN ORTEGA on 07/24/21 1145 Atorvastatin Calcium (Atorvastatin Calcium) 20 Mg Tablet, 20 MG PO HS, (Reported) Entered as Reported by: LEX HOSKINS on 12/07/20 0916 Benzonatate (Tessalon Perles) 100 Mg Capsule, 100 MG PO DAILY, (Reported) Entered as Reported by: GRIFFIN ORTEGA on 07/24/21 1145 Cyanocobalamin (Cyanocobalamin Injection) 1,000 Mcg/Ml Inj, 1,000 MCG IM MONTHLY, (Reported) Entered as Reported by: GRIFFIN ORTEGA on 07/24/21 1145 Cyclobenzaprine HCl (Cyclobenzaprine HCl) 10 Mg Tablet, 10 MG PO Q8H PRN for SPASMS Prescribed by: MAKAYLA HAWKINS on 02/28/21 0942 Dextromethorphan Polistirex (Delsym) 30 Mg/5 Ml Petty.er.12h, 10 ML PO BID, (Reported) Entered as Reported by: GRIFFIN ORTEGA on 07/24/21 1145 Diphenhydramine HCl (Benadryl) 25 Mg Capsule, 25 MG PO HS PRN for SLEEP, (Reported) Entered as Reported by: EMILIO SHEPPARD on 10/26/19 0812 Doxycycline Hyclate (Doxycycline Hyclate) 100 Mg Tablet, 100 MG PO BID, (Reported) Entered as Reported by: GRIFFIN ORTEGA on 07/24/21 1139 Estradiol (Estrace Tablet) 1 Mg Tablet, 1 MG PO DAILY, (Reported) Entered as Reported by: GRIFFIN ORTEGA on 07/24/21 1145 Famotidine (Pepcid) 20 Mg Tablet, 20 MG PO BID Prescribed by: IZABELA MAC on 09/28/21 1539 Gabapentin (Neurontin) 300 Mg Capsule, 300 MG PO TID PRN for PAIN-MODERATE (5-7) Prescribed by: IZABELA MAC on 10/11/21 1552 Glyburide (Glyburide) 2.5 Mg Tablet, 2.5 MG PO DAILY, (Reported) Entered as Reported by: GRIFFIN ORTEGA on 07/24/21 1145 Hydrocodone/Acetaminophen (Hydrocodone-Acetamin 5-325 mg) 1 Each Tablet, 2 EACH PO Q6H PRN for PAIN-MILD (1-4), (Reported) Entered as Reported by: EMILIO SHEPPARD on 10/26/19 0812 Metoclopramide HCl (Reglan) 5 Mg Tablet, 5 MG PO Q6H PRN for NAUSEA/VOMITING-3RD LINE Prescribed by: IZABELA MAC on 03/13/21 1301 Ondansetron (Ondansetron Odt) 8 Mg Tab.rapdis, 8 MG PO Q8H PRN for NAUSEA/VOMITING, (Reported) Entered as Reported by: EMILIO SHEPPARD on 10/26/19 0812 Promethazine HCl (Promethazine Tablet) 25 Mg Tablet, 25 MG PO Q6H PRN for NAUSEA/VOMITING, (Reported) Entered as Reported by: LEX HOSKINS on 12/07/20 0916 Ropinirole HCl (Ropinirole HCl) 4 Mg Tablet, 4 MG PO HS, (Reported) Entered as Reported by: LEX HOSKINS on 06/28/17 1010 Sertraline HCl (Sertraline HCl) 100 Mg Tablet, 100 MG PO HS, (Reported) Entered as Reported by: LEX HOSKINS on 12/07/20 0912 Sitagliptin Phos/Metformin HCl (Janumet Xr 50-1,000 mg Tablet) 1 Each Tbmp.24hr, 2 TAB-CAP PO DAILY@1900, (Reported) Entered as Reported by: LEX HOSKINS on 12/07/20 0916 Review of Systems Review of Systems Constitutional: see HPI; No chills, No fever EENTM: No Symptoms Reported Respiratory: Denies Cough, Denies Shortness of Air Cardiovascular: Denies Chest Pain, Denies Lightheadedness Gastrointestinal: Abdominal Pain, Nausea Genitourinary: Denies Hematuria, Denies Pain Musculoskeletal: no symptoms reported Skin: no symptoms reported Psychiatric/Neurological: Headache; Denies Weakness Endocrine: No Symptoms Reported All Other Systems Reviewed Negative Unless Noted: Yes Past Pdaxyrb-Itbuuu-Ivzeyb Hx Patient Social History Tobacco Use?: No Use of E-Cig and/or Vaping dev: No Substance use?: No Alcohol Use?: No Pt feels they are or have been: No Immunizations Up To Date Tetanus Booster (TDap): Less than 5yrs PED Vaccines UTD: No First/Initial COVID19 Vaccinat: AUGUST 2021 Second COVID19 Vaccination Alvaro: AUGUST 2021 Third COVID19 Vaccination Date: AUGUST 2021 COVID19 Vaccine Fish Icer: MODERNA Seasonal Allergies Seasonal Allergies: No Past Medical History Surgery/Hospitalization HX: several surgeries including 1 kidney removal, appendectomy, cammie., and power port placement, POWER PORT REMOVAL, HYSTERECTOMY Surgeries: Yes (hernia repair x2, knee scopes, port placement) Adenoidectomy, Appendectomy, Gallbladder, Hysterectomy, Nephrectomy, Orthopedic, Tonsillectomy Respiratory: Yes Asthma Currently Using CPAP: No Currently Using BIPAP: No Cardiac: Yes Hypertension Neurological: Yes Headaches /Migraines Reproductive Disorders: Yes (HX ENDOMETRIOSIS ) 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: 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 Sexually Transmitted Disease: No HIV/AIDS: No Genitourinary: Yes (S/P NEPHRECTOMY) UTI-Chronic Gastrointestinal: Yes (CHRONIC ABD PAIN/N/V) Abdominal Hernia, Gastroesophageal Reflux, Liver Disease/Jaundice, Obstructive Bowel, Pancreatitis, Polyps Musculoskeletal: Yes (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) Chronic Back Pain Endocrine: Yes (OBESITY) Diabetes, Non-Insulin dep HEENT: No Loss of Vision: Denies Hearing Impairment: Denies Cancer: Yes Kidney Did You Recieve Any Treatments: Yes What Type of Treatment Did You: Surgical Intervention Psychosocial: Yes Anxiety, Depression Integumentary: No Herpes Blood Disorders: No Adverse Reaction/Blood Tranf: No (N/A) Family Medical History Reviewed Nursing Family Hx Cardiovascular disease 19 FATHER Completed stroke 19 FATHER Diabetes mellitus 19 FATHER Hypercholesterolemia 19 FATHER 19 MOTHER Hypertension 19 FATHER 19 MOTHER Neoplasm 19 MOTHER Psychosocial problem 19 FATHER 19 MOTHER No Pertinent Family Hx, Cancer, Diabetes, Hypertension PSH: -RIGHT KNEE SCOPE X 5 -LEFT KNEE SCOPE X 2 -TONSILLECTOMY / ADENOIDECTOMY -APPENDECTOMY -CHOLECYSTECTOMY -NASAL FRACTURE REPAIR -COCCYX REMOVAL -LEFT NEPHRECTOMY FOR MALIGNANCY -LEFT MID ABDOMEN INCISIONAL HERNIA REPAIR -DRAINAGE OF ABDOMINAL WALL ABSCESS -MULTIPLE EGD'S AND COLONOSCOPIES--LAST ONE DONE HERE 10/26/19 -HYSTERECTOMY / BILATERAL SALPINGO-OOPHORECTOMY 2007 -06/23/20--RIGHT CHEST WALL/SHOULDER INJECTION FOR THORACIC OUTLET SYNDROME--DONE IN -PORT REMOVED FROM LEFT CHEST 07/24/21 FOR NON-FUNCTIONING PORT-BY DR. MARROQUIN Physical Exam Vital Signs Vital Signs - First Documented 10/29/21 13:15 Temp 36.0 Pulse 95 Resp 20 B/P (MAP) 144/96 (112) Capillary Refill : Height/Weight/BMI Height: 5'3.00" Weight: 246lbs. 0oz. 111.720510nl; 45.00 BMI Method:Stated General Appearance: WD/WN, no apparent distress, obese HEENT: PERRL/EOMI, pharynx normal Neck: non-tender, full range of motion, supple, normal inspection Respiratory: lungs clear, normal breath sounds Cardiovascular: regular rate, rhythm, no murmur Gastrointestinal: normal bowel sounds, non tender, soft Extremities: non-tender, normal inspection Back: normal inspection, no CVA tenderness, no vertebral tenderness Neurologic/Psychiatric: alert, oriented x 3 Skin: normal color, warm/dry Focused Exam Lactate Level 10/29/21 14:34: Lactic Acid Level 2.50*H Lactic Acid Level Laboratory Tests Test 10/29/21 14:34 Lactic Acid Level 2.50 MMOL/L (0.50-2.00) *H Progress/Results/Core Measures Results/Orders Lab Results Laboratory Tests Test 10/29/21 14:02 10/29/21 14:34 Range/Units Urine Color YELLOW Urine Clarity CLEAR Urine pH 5.5 5-9 Urine Specific [place] >=1.030 1.016-1.022 Urine Protein NEGATIVE NEGATIVE Urine Glucose (UA) NEGATIVE NEGATIVE Urine Ketones NEGATIVE NEGATIVE Urine Nitrite NEGATIVE NEGATIVE Urine Bilirubin NEGATIVE NEGATIVE Urine Urobilinogen 0.2 < = 1.0 MG/DL Urine Leukocyte Esterase NEGATIVE NEGATIVE Urine RBC (Auto) NEGATIVE NEGATIVE Urine RBC NONE /HPF Urine WBC NONE /HPF Urine Squamous Epithelial Cells 0-2 /HPF Urine Crystals NONE /LPF Urine Bacteria NEGATIVE /HPF Urine Casts NONE /LPF Urine Mucus NEGATIVE /LPF Urine Culture Indicated NO White Blood Count 7.9 4.3-11.0 10^3/uL Red Blood Count 4.69 3.80-5.11 10^6/uL Hemoglobin 12.7 11.5-16.0 g/dL Hematocrit 40 35-52 % Mean Corpuscular Volume 84 80-99 fL Mean Corpuscular Hemoglobin 27 25-34 pg Mean Corpuscular Hemoglobin Concent 32 32-36 g/dL Red Cell Distribution Width 13.9 10.0-14.5 % Platelet Count 256 130-400 10^3/uL Mean Platelet Volume 9.4 9.0-12.2 fL Immature Granulocyte % (Auto) 0 % Neutrophils (%) (Auto) 54 42-75 % Lymphocytes (%) (Auto) 35 12-44 % Monocytes (%) (Auto) 4 0-12 % Eosinophils (%) (Auto) 6 0-10 % Basophils (%) (Auto) 0 0-10 % Neutrophils # (Auto) 4.3 1.8-7.8 10^3/uL Lymphocytes # (Auto) 2.8 1.0-4.0 10^3/uL Monocytes # (Auto) 0.3 0.0-1.0 10^3/uL Eosinophils # (Auto) 0.4 H 0.0-0.3 10^3/uL Basophils # (Auto) 0.0 0.0-0.1 10^3/uL Immature Granulocyte # (Auto) 0.0 0.0-0.1 10^3/uL Sodium Level 140 135-145 MMOL/L Potassium Level 3.9 3.6-5.0 MMOL/L Chloride Level 102 98-107 MMOL/L Carbon Dioxide Level 24 21-32 MMOL/L Anion Gap 14 5-14 MMOL/L Blood Urea Nitrogen 12 7-18 MG/DL Creatinine 0.90 0.60-1.30 MG/DL Estimat Glomerular Filtration Rate 84 BUN/Creatinine Ratio 13 Glucose Level 138 H 70-105 MG/DL Lactic Acid Level 2.50 *H 0.50-2.00 MMOL/L Calcium Level 9.8 8.5-10.1 MG/DL Corrected Calcium 9.5 8.5-10.1 MG/DL Total Bilirubin 0.4 0.1-1.0 MG/DL Aspartate Amino Transf (AST/SGOT) 41 H 5-34 U/L Alanine Aminotransferase (ALT/SGPT) 48 0-55 U/L Alkaline Phosphatase 68 40-136 U/L C-Reactive Protein High Sensitivity 0.72 H 0.00-0.50 MG/DL Total Protein 7.9 6.4-8.2 GM/DL Albumin 4.4 3.2-4.5 GM/DL Lipase 47 8-78 U/L My Orders Orders - YUKI MARCH MD Cbc With Automated Diff (10/29/21 13:52) Comprehensive Metabolic Panel (10/29/21 13:52) Hs C Reactive Protein (10/29/21 13:52) Lactic Acid Analyzer (10/29/21:52) Ua Culture If Indicated (10/29/21:52) Promethazine Injection (Phenergan Injec (10/29/21 13:52) Ns Iv 1000 Ml (Sodium Chloride 0.9%) (10/29/21 13:52) Ed Iv/Invasive Line Start (10/29/21:52) Diphenhydramine Injection (Benadryl Inje (10/29/21 13:52) Lipase (10/29/21 15:03) Ns Iv 1000 Ml (Sodium Chloride 0.9%) (10/29/21 15:07) Hydrocodone/Apap 5/325 Tablet (Lortab 5 (10/29/21 17:00) Vital Signs/I&O 10/29/21 13:15 Temp 36.0 Pulse 95 Resp 20 B/P (MAP) 144/96 (112) Blood Pressure Mean: 112 Progress Progress Note : Progress Note Seen and evaluated. Clear liquid or light diet for the next 24 hours and then advance as tolerated. Take medications as directed., Labs and UA ordered. Normal saline 1 L bolus. Phenergan 25 mg IV and Benadryl 25 mg IV ordered. Monitor patient. 1700: Patient received second liter of normal saline. Lactic acid slightly elevated and I think this was related to dehydration as she has no other indication of infection. Overall improved after meds. She still has slight headache. We will give her 1 dose of hydrocodone 5/325 and then discharge. Patient feels comfortable for discharge home. Discharged home with return precautions. Patient verbalized understanding of instructions and agreement with plan. Departure Impression Primary Impression: Abdominal pain Additional Impression: Headache Qualified Codes: R51.9 - Headache, unspecified Disposition: 01 HOME, SELF-CARE Condition: Stable Departure-Patient Inst. Decision time for Depature: 17:02 Referrals: CARMEN GIBBS MD (PCP/Family) Primary Care Physician Patient Instructions: Dehydration, Adult (DC), Nausea and Vomiting, Adult (DC), Severe Abdominal Pain, Adult (DC) Add. Discharge Instructions: All discharge instructions reviewed with patient and/or family. Voiced understanding. Continue home medications as previously prescribed. Follow-up with your GI doctor. Your lipase today was 47 which is within normal limits. Clear a light diet for the next 24 hours and then advance as tolerated. Return for worse pain, fever, vomiting, weakness, breathing problems or other concerns as needed. Copy Copies To 1: CARMEN GIBBS MD, TIMOTHY D MD October 29, 2021 14:09
[2021-10-29 14:15] LABS: BACTERIA,URINE NEGATIVE /HPF; SQUAMOUS EPITHELIAL CELL,UR 0-2 /HPF
[2021-10-29 14:40] LABS: BASOPHILS % (AUTO) 0 % (0-10); EOSINOPHILS # (AUTO) 0.4 10^3/uL (0.0-0.3); EOSINOPHILS % (AUTO) 6 % (0-10); HEMATOCRIT 40 % (35-52); HEMOGLOBIN 12.7 g/dL (11.5-16.0); LYMPHOCYTES # (AUTO) 2.8 10^3/uL (1.0-4.0); LYMPHOCYTES % (AUTO) 35 % (12-44); MEAN CORPUSCULAR HEMOGLOBIN 27 pg (25-34); MEAN CORPUSCULAR HGB CONC 32 g/dL (32-36); MEAN CORPUSCULAR VOLUME 84 fL (80-99); MEAN PLATELET VOLUME 9.4 fL (9.0-12.2); MONOCYTES # (AUTO) 0.3 10^3/uL (0.0-1.0); MONOCYTES % (AUTO) 4 % (0-12); NEUTROPHILS # (AUTO) 4.3 10^3/uL (1.8-7.8); NEUTROPHILS % (AUTO) 54 % (42-75); PLATELET COUNT 256 10^3/uL (130-400); WHITE BLOOD COUNT 7.9 10^3/uL (4.3-11.0)
[2021-10-29 14:49] LABS: ALBUMIN 4.4 GM/DL (3.2-4.5); POTASSIUM 3.9 MMOL/L (3.6-5.0)
[2021-10-29 14:50] LABS: CALCIUM 9.8 MG/DL (8.5-10.1)
[2021-10-29 14:52] LABS: TOTAL PROTEIN 7.9 GM/DL (6.4-8.2)
[2021-10-29 14:53] LABS: BILIRUBIN,TOTAL 0.4 MG/DL (0.1-1.0)
[2021-10-29 14:55] LABS: CREATININE SERUM 0.9 MG/DL (0.60-1.30)
[2021-10-29] MEDS ORDERED: HYDROcodone/APAP 5 MG/325 MG (LORTAB) TAB PO ONE (17:00)
[2021-10-29 17:33] VITALS: BP 140/92
== END 2021-10-29 17:34 | disposition home or self-care (01) ==
LOC: EDUNIT# 12:59 → ER 13:00
DX: R51.9 Headache, unspecified (principal); E66.9 Obesity, unspecified; Z90.5 Acquired absence of kidney; Z90.49 Acquired absence of other specified parts of digestive tract; Z90.710 Acquired absence of both cervix and uterus
CPT/HCPCS: 36415; 80053; 81000; 83605; 83690; 85025; 86141

== ENCOUNTER 2021-10-31 14:23 | Emergency (ER) | payer MEDICARE, MEDICAID ==
[~2021-10-31] VITALS: Ht 160 cm; Wt 120.0 kg
[2021-10-31] MEDS ORDERED: LACTATED RINGERS 1,000 ML IV ONE ×2 (14:30→17:00)
[2021-10-31 15:07] LABS: BASOPHILS % (AUTO) 0 % (0-10); EOSINOPHILS # (AUTO) 0.4 10^3/uL (0.0-0.3); EOSINOPHILS % (AUTO) 5 % (0-10); HEMATOCRIT 36 % (35-52); HEMOGLOBIN 11.9 g/dL (11.5-16.0); LYMPHOCYTES # (AUTO) 2.7 10^3/uL (1.0-4.0); LYMPHOCYTES % (AUTO) 33 % (12-44); MEAN CORPUSCULAR HEMOGLOBIN 27 pg (25-34); MEAN CORPUSCULAR HGB CONC 33 g/dL (32-36); MEAN CORPUSCULAR VOLUME 83 fL (80-99); MEAN PLATELET VOLUME 9.7 fL (9.0-12.2); MONOCYTES # (AUTO) 0.3 10^3/uL (0.0-1.0); MONOCYTES % (AUTO) 4 % (0-12); NEUTROPHILS # (AUTO) 4.7 10^3/uL (1.8-7.8); NEUTROPHILS % (AUTO) 57 % (42-75); PLATELET COUNT 257 10^3/uL (130-400); WHITE BLOOD COUNT 8.2 10^3/uL (4.3-11.0)
[2021-10-31 15:18] LABS: ALBUMIN 4.1 GM/DL (3.2-4.5); POTASSIUM 3.8 MMOL/L (3.6-5.0)
[2021-10-31 15:20] LABS: CALCIUM 9.7 MG/DL (8.5-10.1)
[2021-10-31 15:21] LABS: TOTAL PROTEIN 7.2 GM/DL (6.4-8.2)
[2021-10-31 15:23] LABS: BILIRUBIN,TOTAL 0.4 MG/DL (0.1-1.0)
[2021-10-31 15:25] LABS: CREATININE SERUM 0.75 MG/DL (0.60-1.30)
[2021-10-31 15:27] LABS: MAGNESIUM 1.8 MG/DL (1.6-2.4)
[2021-10-31 16:14] LABS: BILIRUBIN,URINE NEGATIVE (NEGATIVE); CLARITY,URINE CLEAR; COLOR,URINE YELLOW; GLUCOSE, URINE (UA) NEGATIVE (NEGATIVE); KETONES,URINE NEGATIVE (NEGATIVE); LEUKOCYTE ESTERASE ,URINE NEGATIVE (NEGATIVE); NITRITE,URINE NEGATIVE (NEGATIVE); PROTEIN,URINE NEGATIVE (NEGATIVE)
[2021-10-31 16:26] LABS: BACTERIA,URINE FEW /HPF
[2021-10-31] MEDS ORDERED: PROMETHAZINE INJ 25 MG/ML (PHENERGAN) AMP IVP ONE (17:00)
--- NOTE | 2021-10-31 17:04 | ED GI ---
General Chief Complaint: Abdominal/GI Problems Stated Complaint: DEHYDRATED,NAUSEA Nursing Triage Note: pt was sent here because [facility] was unable to get a blood draw since pt was dehydrated. Source of Information: Patient, Old Records Exam Limitations: No Limitations History of Present Illness Date Seen by Provider: October 31, 2021 Time Seen by Provider: 14:28 Initial Comments This 36-year-old woman well-known to me from prior ER visits presents to the emergency room with nausea, vomiting, and upper abdominal pain. She has been using her usual rotation of antiemetics including Zofran, Reglan, and Phenergan. She last took Zofran a few hours prior to presentation. She presented to the lab to have blood drawn for her primary care provider but states she was too "dehydrated" for them to obtain labs. She was therefore directed to the ER for IV fluids. She is under the care of gastroenterology at [facility]. She reports compliance with her medications including antacids. Allergies and Home Medications Allergies Coded Allergies: fentanyl (Verified Allergy, Unknown, 10/16/18) meperidine (Verified Allergy, Unknown, 10/16/18) penicillin G (Verified Allergy, Unknown, 10/16/18) prochlorperazine (Verified Allergy, Unknown, 03/15/21) trimethobenzamide (Unverified Allergy, Unknown, 09/05/20) vancomycin (Verified Adverse Reaction, Intermediate, severe itching, 10/26/19) Patient Home Medication List Home Medication List Reviewed: Yes Acetaminophen (Tylenol Extra Strength) 500 Mg Tablet, 1,000 MG PO Q8H PRN for PAIN-MILD (1-4), (Reported) Entered as Reported by: EMILIO SHEPPARD on 10/26/19 0812 Acetaminophen with Codeine (Acetaminop-Codein 240-24 mg/10) 10 Ml Solution, 10 ML PO Q6H PRN for cough Prescribed by: GEO BORJA on 09/29/212037 Albuterol Sulfate (Albuterol Sulfate) 2.5 Mg/0.5 Ml Vial.neb, 2.5 MG INH Q4H, (Reported) Entered as Reported by: GRIFFIN ORTEGA on 07/24/21 1145 Atorvastatin Calcium (Atorvastatin Calcium) 20 Mg Tablet, 20 MG PO HS, (Reported) Entered as Reported by: LEX HOSKINS on 12/07/20 0916 Benzonatate (Tessalon Perles) 100 Mg Capsule, 100 MG PO DAILY, (Reported) Entered as Reported by: GRIFFIN ORTEGA on 07/24/21 1145 Cyanocobalamin (Cyanocobalamin Injection) 1,000 Mcg/Ml Inj, 1,000 MCG IM MONTHLY, (Reported) Entered as Reported by: GRIFFIN ORTEGA on 07/24/21 1145 Cyclobenzaprine HCl (Cyclobenzaprine HCl) 10 Mg Tablet, 10 MG PO Q8H PRN for SPASMS Prescribed by: MAKAYLA HAWKINS on 02/28/21 0942 Dextromethorphan Polistirex (Delsym) 30 Mg/5 Ml Petty.er.12h, 10 ML PO BID, (Reported) Entered as Reported by: GRIFFIN ORTEGA on 07/24/21 1145 Diphenhydramine HCl (Benadryl) 25 Mg Capsule, 25 MG PO HS PRN for SLEEP, (Reported) Entered as Reported by: EMILIO SHEPPARD on 10/26/19 0812 Doxycycline Hyclate (Doxycycline Hyclate) 100 Mg Tablet, 100 MG PO BID, (Reported) Entered as Reported by: GRIFFIN ORTEGA on 07/24/21 1139 Estradiol (Estrace Tablet) 1 Mg Tablet, 1 MG PO DAILY, (Reported) Entered as Reported by: GRIFFIN ORTEGA on 07/24/21 1145 Famotidine (Pepcid) 20 Mg Tablet, 20 MG PO BID Prescribed by: IZABELA MAC on 09/28/21 1539 Gabapentin (Neurontin) 300 Mg Capsule, 300 MG PO TID PRN for PAIN-MODERATE (5-7) Prescribed by: IZABELA MAC on 10/11/21 1552 Glyburide (Glyburide) 2.5 Mg Tablet, 2.5 MG PO DAILY, (Reported) Entered as Reported by: GRIFFIN ORTEGA on 07/24/21 1145 Hydrocodone/Acetaminophen (Hydrocodone-Acetamin 5-325 mg) 1 Each Tablet, 2 EACH PO Q6H PRN for PAIN-MILD (1-4), (Reported) Entered as Reported by: EMILIO SHEPPARD on 10/26/19 0812 Metoclopramide HCl (Reglan) 5 Mg Tablet, 5 MG PO Q6H PRN for NAUSEA/VOMITING-3RD LINE Prescribed by: IZABELA MAC on 03/13/21 1301 Ondansetron (Ondansetron Odt) 8 Mg Tab.rapdis, 8 MG PO Q8H PRN for NAUSEA/VOMITING, (Reported) Entered as Reported by: EMILIO SHEPPARD on 10/26/19 0812 Promethazine HCl (Promethazine Tablet) 25 Mg Tablet, 25 MG PO Q6H PRN for NAUSEA/VOMITING, (Reported) Entered as Reported by: LEX HOSKINS on 12/07/20 0916 Ropinirole HCl (Ropinirole HCl) 4 Mg Tablet, 4 MG PO HS, (Reported) Entered as Reported by: LEX HOSKINS on 06/28/17 1010 Sertraline HCl (Sertraline HCl) 100 Mg Tablet, 100 MG PO HS, (Reported) Entered as Reported by: LEX HOSKINS on 12/07/20 0912 Sitagliptin Phos/Metformin HCl (Janumet Xr 50-1,000 mg Tablet) 1 Each Tbmp.24hr, 2 TAB-CAP PO DAILY@1900, (Reported) Entered as Reported by: LEX HOSKINS on 12/07/20 0916 Review of Systems Review of Systems Constitutional: no symptoms reported EENTM: No Symptoms Reported Respiratory: No Symptoms Reported Cardiovascular: No Symptoms Reported Gastrointestinal: See HPI Genitourinary: No Symptoms Reported Musculoskeletal: no symptoms reported Skin: no symptoms reported Psychiatric/Neurological: No Symptoms Reported Endocrine: No Symptoms Reported Past Vltonss-Eufiov-Axrqkg Hx Patient Social History Tobacco Use?: No Substance use?: No Alcohol Use?: No Immunizations Up To Date Tetanus Booster (TDap): Less than 5yrs PED Vaccines UTD: No First/Initial COVID19 Vaccinat: AUGUST 2021 Second COVID19 Vaccination Alvaro: AUGUST 2021 Third COVID19 Vaccination Date: AUGUST 2021 Seasonal Allergies Seasonal Allergies: No Past Medical History Surgery/Hospitalization HX: several surgeries including 1 kidney removal, appendectomy, cammie., and power port placement, POWER PORT REMOVAL, HYSTERECTOMY Surgeries: Yes (hernia repair x2, knee scopes, port placement) Adenoidectomy, Appendectomy, Gallbladder, Hysterectomy, Nephrectomy, Orthopedic, Tonsillectomy Respiratory: Yes Asthma Currently Using CPAP: No Currently Using BIPAP: No Cardiac: Yes Hypertension Neurological: Yes Headaches /Migraines Reproductive Disorders: Yes (HX ENDOMETRIOSIS ) 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: 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: 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 Sexually Transmitted Disease: No HIV/AIDS: No Genitourinary: Yes (S/P NEPHRECTOMY) UTI-Chronic Gastrointestinal: Yes (CHRONIC ABD PAIN/N/V) Abdominal Hernia, Gastroesophageal Reflux, Liver Disease/Jaundice, Obstructive Bowel, Pancreatitis (Pancreatic ductal defect and chronic pancreatitis), Polyps Musculoskeletal: Yes (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) Chronic Back Pain Endocrine: Yes (OBESITY) Diabetes, Non-Insulin dep HEENT: No Loss of Vision: Denies Hearing Impairment: Denies Cancer: Yes Kidney Did You Recieve Any Treatments: Yes What Type of Treatment Did You: Surgical Intervention Psychosocial: Yes Anxiety, Depression Integumentary: No Herpes Blood Disorders: No Adverse Reaction/Blood Tranf: No (N/A) Family Medical History Cardiovascular disease 19 FATHER Completed stroke 19 FATHER Diabetes mellitus 19 FATHER Hypercholesterolemia 19 FATHER 19 MOTHER Hypertension 19 FATHER 19 MOTHER Neoplasm 19 MOTHER Psychosocial problem 19 FATHER 19 MOTHER No Pertinent Family Hx, Cancer, Diabetes, Hypertension PSH: -RIGHT KNEE SCOPE X 5 -LEFT KNEE SCOPE X 2 -TONSILLECTOMY / ADENOIDECTOMY -APPENDECTOMY -CHOLECYSTECTOMY -NASAL FRACTURE REPAIR -COCCYX REMOVAL -LEFT NEPHRECTOMY FOR MALIGNANCY -LEFT MID ABDOMEN INCISIONAL HERNIA REPAIR -DRAINAGE OF ABDOMINAL WALL ABSCESS -MULTIPLE EGD'S AND COLONOSCOPIES--LAST ONE DONE HERE 10/26/19 -HYSTERECTOMY / BILATERAL SALPINGO-OOPHORECTOMY 2007 -06/23/20--RIGHT CHEST WALL/SHOULDER INJECTION FOR THORACIC OUTLET SYNDROME--DONE IN -PORT REMOVED FROM LEFT CHEST 07/24/21 FOR NON-FUNCTIONING PORT-BY DR. MARROQUIN Physical Exam Vital Signs Vital Signs - First Documented 10/31/21 14:45 Temp 36.1 Pulse 94 Resp 18 B/P (MAP) 126/80 (95) Pulse Ox 97 O2 Delivery Room Air Capillary Refill : Less Than 3 Seconds Height/Weight/BMI Height: 5'3.00" Weight: 246lbs. 0oz. 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 tested, no motor/sensory deficits, alert, normal mood/affect, oriented x 3 Skin: normal color, warm/dry Progress/Results/Core Measures Results/Orders Lab Results Laboratory Tests Test 10/31/21 14:50 10/31/21 16:06 Range/Units White Blood Count 8.2 4.3-11.0 10^3/uL Red Blood Count 4.39 3.80-5.11 10^6/uL Hemoglobin 11.9 11.5-16.0 g/dL Hematocrit 36 35-52 % Mean Corpuscular Volume 83 80-99 fL Mean Corpuscular Hemoglobin 27 25-34 pg Mean Corpuscular Hemoglobin Concent 33 32-36 g/dL Red Cell Distribution Width 13.6 10.0-14.5 % Platelet Count 257 130-400 10^3/uL Mean Platelet Volume 9.7 9.0-12.2 fL Immature Granulocyte % (Auto) 0 % Neutrophils (%) (Auto) 57 42-75 % Lymphocytes (%) (Auto) 33 12-44 % Monocytes (%) (Auto) 4 0-12 % Eosinophils (%) (Auto) 5 0-10 % Basophils (%) (Auto) 0 0-10 % Neutrophils # (Auto) 4.7 1.8-7.8 10^3/uL Lymphocytes # (Auto) 2.7 1.0-4.0 10^3/uL Monocytes # (Auto) 0.3 0.0-1.0 10^3/uL Eosinophils # (Auto) 0.4 H 0.0-0.3 10^3/uL Basophils # (Auto) 0.0 0.0-0.1 10^3/uL Immature Granulocyte # (Auto) 0.0 0.0-0.1 10^3/uL Sodium Level 140 135-145 MMOL/L Potassium Level 3.8 3.6-5.0 MMOL/L Chloride Level 105 98-107 MMOL/L Carbon Dioxide Level 22 21-32 MMOL/L Anion Gap 13 5-14 MMOL/L Blood Urea Nitrogen 11 7-18 MG/DL Creatinine 0.75 0.60-1.30 MG/DL Estimat Glomerular Filtration Rate 105 BUN/Creatinine Ratio 15 Glucose Level 112 H 70-105 MG/DL Calcium Level 9.7 8.5-10.1 MG/DL Corrected Calcium 9.6 8.5-10.1 MG/DL Magnesium Level 1.8 1.6-2.4 MG/DL Total Bilirubin 0.4 0.1-1.0 MG/DL Aspartate Amino Transf (AST/SGOT) 37 H 5-34 U/L Alanine Aminotransferase (ALT/SGPT) 45 0-55 U/L Alkaline Phosphatase 61 40-136 U/L C-Reactive Protein High Sensitivity 0.69 H 0.00-0.50 MG/DL Total Protein 7.2 6.4-8.2 GM/DL Albumin 4.1 3.2-4.5 GM/DL Lipase 137 H 8-78 U/L Urine Color YELLOW Urine Clarity CLEAR Urine pH 6.0 5-9 Urine Specific [place] 1.010 L 1.016-1.022 Urine Protein NEGATIVE NEGATIVE Urine Glucose (UA) NEGATIVE NEGATIVE Urine Ketones NEGATIVE NEGATIVE Urine Nitrite NEGATIVE NEGATIVE Urine Bilirubin NEGATIVE NEGATIVE Urine Urobilinogen 0.2 < = 1.0 MG/DL Urine Leukocyte Esterase NEGATIVE NEGATIVE Urine RBC (Auto) NEGATIVE NEGATIVE Urine RBC NONE /HPF Urine WBC 2-5 /HPF Urine Squamous Epithelial Cells 2-5 /HPF Urine Crystals NONE /LPF Urine Bacteria FEW H /HPF Urine Casts NONE /LPF Urine Mucus NEGATIVE /LPF Urine Culture Indicated YES My Orders Orders - IZABELA RENDON MD Cbc With Automated Diff (10/31/21 14:28) Comprehensive Metabolic Panel (10/31/21 14:28) Hs C Reactive Protein (10/31/21 14:28) Lipase (10/31/21 14:28) Magnesium (10/31/21 14:28) Ua Culture If Indicated (10/31/21 14:28) Ed Iv/Invasive Line Start (10/31/21 14:28) Lactated Ringers (Lr 1000 Ml Iv Solution (10/31/21 14:30) Urine Culture (10/31/21 16:06) Promethazine Injection (Phenergan Injec (10/31/21 17:00) Lactated Ringers (Lr 1000 Ml Iv Solution (10/31/21 17:00) Medications Given in ED Vital Signs/I&O 10/31/21 10/31/21 14:45 18:01 Temp 36.1 36.3 Pulse 94 85 Resp 18 18 B/P (MAP) 126/80 (95) 169/98 Pulse Ox 97 97 O2 Delivery Room Air Room Air 11/01/21 00:00 Intake Total 1500 ml Balance 1500 ml Blood Pressure Mean: 95 Progress Progress Note : Progress Note Patient had minimal elevation in lipase. Labs were otherwise relatively unremarkable. This seems to be an exacerbation of chronic problems. She was hydrated with 2 L of IVF and nausea was treated with Phenergan. She had no vomiting while in the ER and was discharged in stable condition. Departure Impression Primary Impression: Nausea and vomiting Qualified Codes: R11.2 - Nausea with vomiting, unspecified Additional Impressions: Epigastric abdominal pain Chronic abdominal pain Elevated lipase Disposition: HOME, SELF-CARE Condition: Improved Departure-Patient Inst. Decision time for Depature: 17:02 Referrals: CARMEN GIBBS MD (PCP/Family) Primary Care Physician Patient Instructions: Abdominal Pain, Adult ED, Pancreatitis Add. Discharge Instructions: Adhere to a noncarbonated clear liquid diet for the remainder of today. Gradually advance diet with small quantities of bland food as tolerated tomorrow. You may continue alternating your nausea medications as previously prescribed. Return to care if you have worsening symptoms despite following these instructions. 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 All discharge instructions reviewed with patient and/or family. Voiced understanding. Copy Copies To 1: CARMEN GIBBS MD, JOSHUA T MD October 31, 2021 17:04
[2021-10-31 18:01] VITALS: BP 169/98
== END 2021-10-31 18:01 | disposition home or self-care (01) ==
LOC: EDUNIT# 14:23 → ER 14:24
DX: R11.2 Nausea with vomiting, unspecified (principal); G89.29 Other chronic pain; R10.13 Epigastric pain; R74.8 Abnormal levels of other serum enzymes; K21.9 Gastro-esophageal reflux disease without esophagitis; E66.9 Obesity, unspecified; Z79.899 Other long term (current) drug therapy; Z87.19 Personal history of other diseases of the digestive system; Z90.5 Acquired absence of kidney; Z90.49 Acquired absence of other specified parts of digestive tract; Z90.710 Acquired absence of both cervix and uterus
CPT/HCPCS: 36415; 80053; 81000; 83690; 83735; 85025; 86141; 87088

== ENCOUNTER 2021-11-03 11:58 | Emergency (ER) | payer MEDICARE, MEDICAID ==
[2021-11-03] MEDS ORDERED: LACTATED RINGERS 1,000 ML IV ONE (12:30)
== END 2021-11-03 12:23 | disposition left against medical advice (07) ==
LOC: EDUNIT# 11:58 → ER 11:59
DX: R11.10 Vomiting, unspecified (principal)

== ENCOUNTER → 2021-11-03 | Outpatient (CLI) | payer MEDICARE, MEDICAID ==
[2021-11-03 12:59] LABS: BASOPHILS % (AUTO) 0 % (0-10); EOSINOPHILS # (AUTO) 0.3 10^3/uL (0.0-0.3); EOSINOPHILS % (AUTO) 4 % (0-10); HEMATOCRIT 40 % (35-52); HEMOGLOBIN 13.1 g/dL (11.5-16.0); LYMPHOCYTES # (AUTO) 3.2 10^3/uL (1.0-4.0); LYMPHOCYTES % (AUTO) 38 % (12-44); MEAN CORPUSCULAR HEMOGLOBIN 27 pg (25-34); MEAN CORPUSCULAR HGB CONC 33 g/dL (32-36); MEAN CORPUSCULAR VOLUME 83 fL (80-99); MEAN PLATELET VOLUME 9.2 fL (9.0-12.2); MONOCYTES # (AUTO) 0.3 10^3/uL (0.0-1.0); MONOCYTES % (AUTO) 4 % (0-12); NEUTROPHILS # (AUTO) 4.4 10^3/uL (1.8-7.8); NEUTROPHILS % (AUTO) 53 % (42-75); PLATELET COUNT 282 10^3/uL (130-400); WHITE BLOOD COUNT 8.3 10^3/uL (4.3-11.0)
[2021-11-03 13:24] LABS: ALBUMIN 4.5 GM/DL (3.2-4.5); BILIRUBIN,TOTAL 0.6 MG/DL (0.1-1.0); CALCIUM 10.1 MG/DL (8.5-10.1); CREATININE SERUM 0.88 MG/DL (0.60-1.30); POTASSIUM 4.1 MMOL/L (3.6-5.0); TOTAL PROTEIN 7.8 GM/DL (6.4-8.2)
== END ==
LOC: LAB 12:21
PROVIDERS: ATTEND Family Medicine
DX: K86.1 Other chronic pancreatitis (principal)
CPT/HCPCS: 36415; 80053; 85025

== ENCOUNTER 2021-11-06 07:42 | Emergency (ER) | payer MEDICARE, MEDICAID ==
[~2021-11-06] VITALS: Ht 160 cm; Wt 115.2 kg
[2021-11-06] MEDS ORDERED: morphine INJ 10 MG/ML 1ML (SYR OR VIAL) IVP STA (07:54)
--- NOTE | 2021-11-06 07:58 | ED Abdominal Pain ---
General Stated Complaint: ABD PAIN,N/V Source of Information: Patient Exam Limitations: No Limitations History of Present Illness Date Seen by Provider: November 06, 2021 Time Seen by Provider: 07:45 Initial Comments Patient to the ER by private conveyance from home with chief complaint she was told to come out by her primary care doctor for dehydration and acute on chronic episode of her pancreatitis for the past week. She was out here last week Saturday, 6 days ago for IV fluids. She saw her primary care doctor and had some repeat labs done on Saturday at the clinic, Dr. Gibbs. She is mostly having epigastric pain, 7 out of 10, nausea and vomiting despite her nausea medicines. She uses about 4 hydrocodone a day 5 x 325's, 2 at a time. She has been using Zofran with her last dose being yesterday, Phenergan 25 mg 3 hours ago and she occasionally uses Reglan with the last dose being 2 days ago. She is followed by GI, Dr. Nunez at [facility]. She is being referred to a different GI doctor soon. She is on Creon. She has an extensive surgical history on her abdomen. She has type 2 diabetes. She does not drink alcohol. Allergies and Home Medications Allergies Coded Allergies: fentanyl (Verified Allergy, Unknown, 10/16/18) meperidine (Verified Allergy, Unknown, 10/16/18) penicillin G (Verified Allergy, Unknown, 10/16/18) prochlorperazine (Verified Allergy, Unknown, 03/15/21) trimethobenzamide (Unverified Allergy, Unknown, 09/05/20) vancomycin (Verified Adverse Reaction, Intermediate, severe itching, 10/26/19) Patient Home Medication List Home Medication List Reviewed: Yes Acetaminophen (Tylenol Extra Strength) 500 Mg Tablet, 1,000 MG PO Q8H PRN for PAIN-MILD (1-4), (Reported) Entered as Reported by: EMILIO SHEPPARD on 10/26/19 0812 Acetaminophen with Codeine (Acetaminop-Codein 240-24 mg/10) 10 Ml Solution, 10 ML PO Q6H PRN for cough Prescribed by: GEO BORJA on 09/29/212037 Albuterol Sulfate (Albuterol Sulfate) 2.5 Mg/0.5 Ml Vial.neb, 2.5 MG INH Q4H, (Reported) Entered as Reported by: GRIFFIN ORTEGA on 07/24/21 1145 Atorvastatin Calcium (Atorvastatin Calcium) 20 Mg Tablet, 20 MG PO HS, (Reported) Entered as Reported by: LEX HOSKINS on 12/07/20 0916 Benzonatate (Tessalon Perles) 100 Mg Capsule, 100 MG PO DAILY, (Reported) Entered as Reported by: GRIFFIN ORTEGA on 07/24/21 1145 Cyanocobalamin (Cyanocobalamin Injection) 1,000 Mcg/Ml Inj, 1,000 MCG IM MONTHLY, (Reported) Entered as Reported by: GRIFFIN ORTEGA on 07/24/21 1145 Cyclobenzaprine HCl (Cyclobenzaprine HCl) 10 Mg Tablet, 10 MG PO Q8H PRN for SPASMS Prescribed by: MAKAYLA HAWKINS on 02/28/21 0942 Dextromethorphan Polistirex (Delsym) 30 Mg/5 Ml Petty.er.12h, 10 ML PO BID, (Reported) Entered as Reported by: GRIFFIN ORTEGA on 07/24/21 1145 Diphenhydramine HCl (Benadryl) 25 Mg Capsule, 25 MG PO HS PRN for SLEEP, (Reported) Entered as Reported by: EMILIO SHEPPARD on 10/26/19 0812 Doxycycline Hyclate (Doxycycline Hyclate) 100 Mg Tablet, 100 MG PO BID, (Reported) Entered as Reported by: GRIFFIN ORTEGA on 07/24/21 1139 Estradiol (Estrace Tablet) 1 Mg Tablet, 1 MG PO DAILY, (Reported) Entered as Reported by: GRIFFIN ORTEGA on 07/24/21 1145 Famotidine (Pepcid) 20 Mg Tablet, 20 MG PO BID Prescribed by: IZABELA MAC on 09/28/21 1539 Gabapentin (Neurontin) 300 Mg Capsule, 300 MG PO TID PRN for PAIN-MODERATE (5-7) Prescribed by: IZABELA MAC on 10/11/21 1552 Glyburide (Glyburide) 2.5 Mg Tablet, 2.5 MG PO DAILY, (Reported) Entered as Reported by: GRIFFIN ORTEGA on 07/24/21 1145 Hydrocodone/Acetaminophen (Hydrocodone-Acetamin 5-325 mg) 1 Each Tablet, 2 EACH PO Q6H PRN for PAIN-MILD (1-4), (Reported) Entered as Reported by: EMILIO SHEPPARD on 10/26/19 0812 Metoclopramide HCl (Reglan) 5 Mg Tablet, 5 MG PO Q6H PRN for NAUSEA/VOMITING-3RD LINE Prescribed by: IZABELA MAC on 03/13/21 1301 Ondansetron (Ondansetron Odt) 8 Mg Tab.rapdis, 8 MG PO Q8H PRN for NAUSEA/VOMITING, (Reported) Entered as Reported by: EMILIO SHEPPARD on 10/26/19 0812 Promethazine HCl (Promethazine Tablet) 25 Mg Tablet, 25 MG PO Q6H PRN for NAUSEA/VOMITING, (Reported) Entered as Reported by: LEX HOSKINS on 12/07/20 0916 Ropinirole HCl (Ropinirole HCl) 4 Mg Tablet, 4 MG PO HS, (Reported) Entered as Reported by: LEX HOSKINS on 06/28/17 1010 Sertraline HCl (Sertraline HCl) 100 Mg Tablet, 100 MG PO HS, (Reported) Entered as Reported by: LEX HOSKINS on 12/07/20 0912 Sitagliptin Phos/Metformin HCl (Janumet Xr 50-1,000 mg Tablet) 1 Each Tbmp.24hr, 2 TAB-CAP PO DAILY@1900, (Reported) Entered as Reported by: LEX HOSKINS on 12/07/20 0916 Review of Systems Review of Systems Constitutional: No chills, No fever, No malaise EENTM: No Blurred Vision, No Double Vision Respiratory: Denies Cough, Denies Shortness of Air Cardiovascular: Denies Chest Pain, Denies Lightheadedness Gastrointestinal: See HPI, Abdominal Pain; Denies Constipated, Denies Diarrhea; Nausea; Denies Poor Appetite; Poor Fluid Intake, Vomiting Genitourinary: Denies Burning, Denies Discharge Musculoskeletal: No back pain, No joint pain All Other Systems Reviewed Negative Unless Noted: Yes Past Bgoaajr-Mfvhhc-Kwudaf Hx Patient Social History Tobacco Use?: No Use of E-Cig and/or Vaping dev: No Substance use?: No Alcohol Use?: No Immunizations Up To Date Tetanus Booster (TDap): Less than 5yrs PED Vaccines UTD: No First/Initial COVID19 Vaccinat: AUGUST 2021 Second COVID19 Vaccination Alvaro: AUGUST 2021 Third COVID19 Vaccination Date: AUGUST 2021 Seasonal Allergies Seasonal Allergies: No Past Medical History Surgery/Hospitalization HX: several surgeries including 1 kidney removal, appendectomy, cammie., and power port placement, POWER PORT REMOVAL, HYSTERECTOMY Surgeries: Yes (hernia repair x2, knee scopes, port placement) Adenoidectomy, Appendectomy, Gallbladder, Hysterectomy, Nephrectomy, Orthopedic, Tonsillectomy Respiratory: Yes Asthma Currently Using CPAP: No Currently Using BIPAP: No Cardiac: Yes Hypertension Neurological: Yes Headaches /Migraines Reproductive Disorders: Yes (HX ENDOMETRIOSIS ) 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: 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 Sexually Transmitted Disease: No HIV/AIDS: No Genitourinary: Yes (S/P NEPHRECTOMY) UTI-Chronic Gastrointestinal: Yes (CHRONIC ABD PAIN/N/V) Abdominal Hernia, Gastroesophageal Reflux, Liver Disease/Jaundice, Obstructive Bowel, Pancreatitis, Polyps Musculoskeletal: Yes (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) Chronic Back Pain Endocrine: Yes (OBESITY) Diabetes, Non-Insulin dep HEENT: No Loss of Vision: Denies Hearing Impairment: Denies Cancer: Yes Kidney Did You Recieve Any Treatments: Yes What Type of Treatment Did You: Surgical Intervention Psychosocial: Yes Anxiety, Depression Integumentary: No Herpes Blood Disorders: No Adverse Reaction/Blood Tranf: No (N/A) Family Medical History Cardiovascular disease 19 FATHER Completed stroke 19 FATHER Diabetes mellitus 19 FATHER Hypercholesterolemia 19 FATHER 19 MOTHER Hypertension 19 FATHER 19 MOTHER Neoplasm 19 MOTHER Psychosocial problem 19 FATHER 19 MOTHER No Pertinent Family Hx, Cancer, Diabetes, Hypertension PSH: -RIGHT KNEE SCOPE X 5 -LEFT KNEE SCOPE X 2 -TONSILLECTOMY / ADENOIDECTOMY -APPENDECTOMY -CHOLECYSTECTOMY -NASAL FRACTURE REPAIR -COCCYX REMOVAL -LEFT NEPHRECTOMY FOR MALIGNANCY -LEFT MID ABDOMEN INCISIONAL HERNIA REPAIR -DRAINAGE OF ABDOMINAL WALL ABSCESS -MULTIPLE EGD'S AND COLONOSCOPIES--LAST ONE DONE HERE 10/26/19 -HYSTERECTOMY / BILATERAL SALPINGO-OOPHORECTOMY 2007 -06/23/20--RIGHT CHEST WALL/SHOULDER INJECTION FOR THORACIC OUTLET SYNDROME--DONE IN -PORT REMOVED FROM LEFT CHEST 07/24/21 FOR NON-FUNCTIONING PORT-BY DR. MARROQUIN Physical Exam Vital Signs Vital Signs - First Documented 11/06/21 07:45 Temp 35.4 Pulse 96 Resp 16 B/P (MAP) 149/106 (120) Pulse Ox 96 Capillary Refill : Height/Weight/BMI Height: 5'3.00" Weight: 246lbs. 0oz. 111.812888bh; 46.00 BMI Method:Stated General Appearance: WD/WN, mild distress, obese HEENT: PERRL/EOMI; No pharynx normal (Dry oral mucosa) Neck: full range of motion, normal inspection Respiratory: no respiratory distress, no accessory muscle use Cardiovascular: normal peripheral pulses, regular rate, rhythm Peripheral Pulses: 2+ Dorsalis Pedis (R), 2+ Left Dors-Pedis (L) Gastrointestinal: normal bowel sounds, non tender, soft, no organomegaly Extremities: normal range of motion, non-tender, normal capillary refill Neurologic/Psychiatric: alert, normal mood/affect, oriented x 3 Skin: normal color, warm/dry Progress/Results/Core Measures Results/Orders Lab Results Laboratory Tests Test 11/06/21 07:59 11/06/21 10:12 Range/Units White Blood Count 7.6 4.3-11.0 10^3/uL Red Blood Count 4.76 3.80-5.11 10^6/uL Hemoglobin 12.8 11.5-16.0 g/dL Hematocrit 40 35-52 % Mean Corpuscular Volume 84 80-99 fL Mean Corpuscular Hemoglobin 27 25-34 pg Mean Corpuscular Hemoglobin Concent 32 32-36 g/dL Red Cell Distribution Width 13.6 10.0-14.5 % Platelet Count 276 130-400 10^3/uL Mean Platelet Volume 9.5 9.0-12.2 fL Immature Granulocyte % (Auto) 0 % Neutrophils (%) (Auto) 56 42-75 % Lymphocytes (%) (Auto) 35 12-44 % Monocytes (%) (Auto) 6 0-12 % Eosinophils (%) (Auto) 3 0-10 % Basophils (%) (Auto) 1 0-10 % Neutrophils # (Auto) 4.2 1.8-7.8 10^3/uL Lymphocytes # (Auto) 2.7 1.0-4.0 10^3/uL Monocytes # (Auto) 0.4 0.0-1.0 10^3/uL Eosinophils # (Auto) 0.3 0.0-0.3 10^3/uL Basophils # (Auto) 0.0 0.0-0.1 10^3/uL Immature Granulocyte # (Auto) 0.0 0.0-0.1 10^3/uL Sodium Level 139 135-145 MMOL/L Potassium Level 4.4 3.6-5.0 MMOL/L Chloride Level 105 98-107 MMOL/L Carbon Dioxide Level 19 L 21-32 MMOL/L Anion Gap 15 H 5-14 MMOL/L Blood Urea Nitrogen 17 7-18 MG/DL Creatinine 0.78 0.60-1.30 MG/DL Estimat Glomerular Filtration Rate 100 BUN/Creatinine Ratio 22 Glucose Level 135 H 70-105 MG/DL Calcium Level 9.6 8.5-10.1 MG/DL Corrected Calcium 9.4 8.5-10.1 MG/DL Magnesium Level 1.8 1.6-2.4 MG/DL Total Bilirubin 0.4 0.1-1.0 MG/DL Aspartate Amino Transf (AST/SGOT) 44 H 5-34 U/L Alanine Aminotransferase (ALT/SGPT) 54 0-55 U/L Alkaline Phosphatase 75 40-136 U/L C-Reactive Protein High Sensitivity 0.60 H 0.00-0.50 MG/DL Total Protein 7.8 6.4-8.2 GM/DL Albumin 4.2 3.2-4.5 GM/DL Lipase 168 H 8-78 U/L Urine Color YELLOW Urine Clarity CLEAR Urine pH 5.5 5-9 Urine Specific [place] 1.015 L 1.016-1.022 Urine Protein NEGATIVE NEGATIVE Urine Glucose (UA) NEGATIVE NEGATIVE Urine Ketones NEGATIVE NEGATIVE Urine Nitrite NEGATIVE NEGATIVE Urine Bilirubin NEGATIVE NEGATIVE Urine Urobilinogen 0.2 < = 1.0 MG/DL Urine Leukocyte Esterase 1+ H NEGATIVE Urine RBC (Auto) NEGATIVE NEGATIVE Urine RBC NONE /HPF Urine WBC 0-2 /HPF Urine Squamous Epithelial Cells 2-5 /HPF Urine Crystals NONE /LPF Urine Bacteria TRACE /HPF Urine Casts NONE /LPF Urine Mucus NEGATIVE /LPF Urine Culture Indicated NO My Orders Orders - MAKAYLA HAWKINS Ed Iv/Invasive Line Start (11/06/21 07:54) Lactated Ringers (Lr 1000 Ml Iv Solution (11/06/21 08:00) Morphine Injection (Morphine Injection (11/06/21 07:54) Ondansetron Injection (Zofran Injectio (11/06/21 08:00) Cbc With Automated Diff (11/06/21 07:54) Comprehensive Metabolic Panel (11/06/21 07:54) Hs C Reactive Protein (11/06/21 07:54) Lipase (11/06/21 07:54) Magnesium (11/06/21 07:54) Ua Culture If Indicated (11/06/21 07:54) Diphenhydramine Injection (Benadryl Inje (11/06/21 08:00) Pantoprazole Injection (Protonix Injecti (11/06/21 08:00) Metoclopramide Injection (Reglan Injecti (11/06/21 08:45) Ed Iv/Invasive Line Start (11/06/21 08:33) Ns Iv 1000 Ml (Sodium Chloride 0.9%) (11/06/21 08:45) Antacid Suspension (Mylanta Suspension (11/06/21 09:30) Medications Given in ED Current Medications Medications Dose Ordered Sig/Neal Route Start Time Stop Time Status Last Admin Dose Admin Al Hydrox/Mg Hydrox/Simethicone 30 ml ONCE ONCE PO 11/06/21 09:30 11/06/21 09:31 DC 11/06/21 09:27 30 ML Diphenhydramine HCl 25 mg ONCE ONCE IVP 11/06/21 08:00 11/06/21 08:01 DC 11/06/21 08:13 25 MG Lactated Ringer's 1,000 ml @ 0 mls/hr Q0M ONCE IV 11/06/21 08:00 11/06/21 08:01 DC 11/06/21 08:05 0 MLS/HR Metoclopramide HCl 10 mg ONCE ONCE IVP 11/06/21 08:45 11/06/21 08:46 DC 11/06/21 09:17 10 MG Ondansetron HCl 12 mg ONCE ONCE IVP 11/06/21 08:00 11/06/21 08:01 DC 11/06/21 08:03 12 MG Pantoprazole 40 mg ONCE ONCE IV 11/06/21 08:00 11/06/21 08:01 DC 11/06/21 08:12 40 MG Vital Signs/I&O 11/06/21 07:45 Temp 35.4 Pulse 96 Resp 16 B/P (MAP) 149/106 (120) Pulse Ox 96 Progress Progress Note #1: Time: 08:34 Progress Note After an initial bolus of 4 mg morphine and 12 mg of ondansetron the patient's fluids are almost done and she says her pain is better but her nausea is still persistent. She is had no more retching or vomiting since she arrived. She has not had Reglan for a couple days and even though she just had Phenergan we will run some Reglan and slow through another liter of fluids to help dilute her mild acute on chronic pancreatitis. Progress Note #2: Time: 11:34 Progress Note Patient is feeling somewhat better and no longer having any retching. She is able to make urine. We will let her finish her fluids which has her Reglan in them and then she can go home. Departure Impression Primary Impression: Acute on chronic pancreatitis Additional Impression: Dehydration Disposition: 01 HOME, SELF-CARE Condition: Stable Departure-Patient Inst. Decision time for Depature: 11:35 Referrals: CARMEN GIBBS MD (PCP/Family) Primary Care Physician Patient Instructions: Chronic Pancreatitis (DC) Add. Discharge Instructions: Stay on a liquid diet until your symptoms improve. Broth, Jell-O, water, etc. Continue to use your nausea medications as prescribed. Return to the ER for significantly worsening symptoms. MAKAYLA HAWKINS November 06, 2021 07:58
[2021-11-06] MEDS ORDERED: LACTATED RINGERS 1,000 ML IV ONE (08:00)
[2021-11-06] MEDS ORDERED: PANTOPRAZOLE 40 MG (PROTONIX) VIAL IV ONE (08:00)
[2021-11-06] MEDS ORDERED: diphenhydrAMINE 50 MG/ML INJ (BENADRYL) IVP ONE (08:00)
[2021-11-06] MEDS ORDERED: ONDANSETRON 4 MG/2 ML (SDV) Z0FRAN IVP ONE (08:00)
[2021-11-06 08:10] LABS: BASOPHILS % (AUTO) 1 % (0-10); EOSINOPHILS # (AUTO) 0.3 10^3/uL (0.0-0.3); EOSINOPHILS % (AUTO) 3 % (0-10); HEMATOCRIT 40 % (35-52); HEMOGLOBIN 12.8 g/dL (11.5-16.0); LYMPHOCYTES # (AUTO) 2.7 10^3/uL (1.0-4.0); LYMPHOCYTES % (AUTO) 35 % (12-44); MEAN CORPUSCULAR HEMOGLOBIN 27 pg (25-34); MEAN CORPUSCULAR HGB CONC 32 g/dL (32-36); MEAN CORPUSCULAR VOLUME 84 fL (80-99); MEAN PLATELET VOLUME 9.5 fL (9.0-12.2); MONOCYTES # (AUTO) 0.4 10^3/uL (0.0-1.0); MONOCYTES % (AUTO) 6 % (0-12); NEUTROPHILS # (AUTO) 4.2 10^3/uL (1.8-7.8); NEUTROPHILS % (AUTO) 56 % (42-75); PLATELET COUNT 276 10^3/uL (130-400); WHITE BLOOD COUNT 7.6 10^3/uL (4.3-11.0)
[2021-11-06 08:18] LABS: ALBUMIN 4.2 GM/DL (3.2-4.5)
[2021-11-06 08:20] LABS: CALCIUM 9.6 MG/DL (8.5-10.1)
[2021-11-06 08:21] LABS: TOTAL PROTEIN 7.8 GM/DL (6.4-8.2)
[2021-11-06 08:23] LABS: BILIRUBIN,TOTAL 0.4 MG/DL (0.1-1.0)
[2021-11-06 08:25] LABS: CREATININE SERUM 0.78 MG/DL (0.60-1.30)
[2021-11-06 08:27] LABS: POTASSIUM 4.4 MMOL/L (3.6-5.0)
[2021-11-06 08:28] LABS: MAGNESIUM 1.8 MG/DL (1.6-2.4)
[2021-11-06] MEDS ORDERED: METOCLOPRAMIDE INJ 10 MG/2 ML (REGLAN) IVP ONE (08:45)
[2021-11-06] MEDS ORDERED: NS IV 1000 ML 1,000 ML IV SCH (08:45)
[2021-11-06] MEDS ORDERED: ANTACID SUSP 30 ML UDC (MYLANTA) PO ONE (09:30)
[2021-11-06 10:17] LABS: BILIRUBIN,URINE NEGATIVE (NEGATIVE); CLARITY,URINE CLEAR; COLOR,URINE YELLOW; GLUCOSE, URINE (UA) NEGATIVE (NEGATIVE); KETONES,URINE NEGATIVE (NEGATIVE); LEUKOCYTE ESTERASE ,URINE 1+ (NEGATIVE); NITRITE,URINE NEGATIVE (NEGATIVE); PH,URINE 5.5 (5-9); PROTEIN,URINE NEGATIVE (NEGATIVE)
[2021-11-06 10:31] LABS: BACTERIA,URINE TRACE /HPF; WBC,URINE 0-2 /HPF
[2021-11-06 12:06] VITALS: BP 116/84
== END 2021-11-06 12:05 | disposition home or self-care (01) ==
LOC: EDUNIT# 07:42 → ER 07:43
DX: K85.90 Acute pancreatitis without necrosis or infection, unspecified (principal); E11.9 Type 2 diabetes mellitus without complications; Z90.5 Acquired absence of kidney; Z90.49 Acquired absence of other specified parts of digestive tract; Z90.710 Acquired absence of both cervix and uterus; Z98.890 Other specified postprocedural states
CPT/HCPCS: 36415; 80053; 81000; 83690; 83735; 85025; 86141

== ENCOUNTER 2021-11-26 19:04 | Emergency (ER) | payer MEDICARE, MEDICAID ==
[~2021-11-26] VITALS: Ht 160 cm; Wt 115.6 kg
--- NOTE | 2021-11-26 19:57 | ED General ---
General Chief Complaint: General Problems/Pain Stated Complaint: ABD PAIN Nursing Triage Note: PT AMBULATORY TO ROOM. PT STATES SHE "FEELS DEHYDRATED" HAS A HEADACHE, IS OFF BALANCE, "NOT PEEING MUCH," HAS LEFT SIDED ABDOMINAL PAIN THAT "COMES AND GOES" BUT IS WORSE TODAY. PT ALSO STATES SHE HAS BACK PAIN Source of Information: Patient, Old Records History of Present Illness Date Seen by Provider: Nov 26, 2021 Time Seen by Provider: 19:33 Initial Comments PT ARRIVES VIA POV FROM HOME PT WITH MULTIPLE CHRONIC COMPLAINTS STATES SHE "FEELS DEHYDRATED" C/O LOWER BACK PAIN C/O CHRONIC LEFT MID AND LOWER ABDOMINAL PAIN--"WHERE THE MESH IS" --"IT HURTS WHEN I LAY ON THAT SIDE"--HAD LEFT NEPHRECTOMY, WITH SUBSEQUENT ABSCESS/DRAINAGE AND HERNIA WITH REPAIR C/O HEADACHE C/O FEELING "OFF BALANCE" C/O DECREASED URINE OUTPUT--VOIDED X 1 TODAY AROUND 10:15 AM STATES SHE HAD A NORMAL , LOOSE BM YESTERDAY. NO BLACK/BLOODY/TARRY STOOLS STATES "I HAVE HUNGER PAINS AND I HAVE NAUSEA , BUT I'M NOT HUNGRY" "I BEEN DRINKIN' WATER" NO FEVER/SWEATS/CHILLS HAS NOT EATEN ANYTHING TODAY HAS NOT CHECKED BLOOD SUGAR--STATES SHE "LOST" HER GLUCOMETER, AND HAS NOT ATTEMPTED TO GET ANOTHER ONE HAS NOT TAKEN HER MEDICATIONS TODAY "BECAUSE I HAVEN'T EATEN ANYTHING" HAS NOT TAKEN ANYTHING FOR SYMPTOMS PT HAS HAD COVID-19 VACCINE X 2--LAST ONE 09/2021. NO FLU VACCINE NO KNOWN SICK CONTACTS. PT WITH MULTITUDE OF VISITS--NEARLY ALL FOR THESE SAME/SIMILAR COMPLAINTS HAS HAD 12 ER VISITS IN 2021--ESSENTIALLY ALL FOR SAME COMPLAINTS TODAY PT HAS BEEN TOLD MULTIPLE TIMES TO FOLLOW UP WITH DR. MARROQUIN FOR THIS PROBLEM, BUT SHE HAS NOT PT HAS ZOFRAN, REGLAN, PHENERGAN FOR CHRONIC NAUSEA/VOMITING PT HAS HYDROCODONE AND GABAPENTIN WELL TYLENOL FOR CHRONIC ABDOMINAL PAIN PCP: DR. GIBBS, [facility] Allergies and Home Medications Allergies Coded Allergies: fentanyl (Verified Allergy, Unknown, 10/16/18) meperidine (Verified Allergy, Unknown, 10/16/18) penicillin G (Verified Allergy, Unknown, 10/16/18) prochlorperazine (Verified Allergy, Unknown, 03/15/21) trimethobenzamide (Unverified Allergy, Unknown, 09/05/20) vancomycin (Verified Adverse Reaction, Intermediate, severe itching, 10/26/19) Patient Home Medication List Home Medication List Reviewed: Yes Acetaminophen (Tylenol Extra Strength) 500 Mg Tablet, 1,000 MG PO Q8H PRN for PAIN-MILD (1-4), (Reported) Entered as Reported by: EMILIO SHEPPARD on 10/26/19 0812 Acetaminophen with Codeine (Acetaminop-Codein 240-24 mg/10) 10 Ml Solution, 10 ML PO Q6H PRN for cough Prescribed by: GEO BORJA on 09/29/212037 Albuterol Sulfate (Albuterol Sulfate) 2.5 Mg/0.5 Ml Vial.neb, 2.5 MG INH Q4H, (Reported) Entered as Reported by: GRIFFIN ORTEGA on 07/24/21 1145 Atorvastatin Calcium (Atorvastatin Calcium) 20 Mg Tablet, 20 MG PO HS, (Reported) Entered as Reported by: LEX HOSKINS on 12/07/20 0916 Benzonatate (Tessalon Perles) 100 Mg Capsule, 100 MG PO DAILY, (Reported) Entered as Reported by: GRIFFIN ORTEGA on 07/24/21 1145 Cyanocobalamin (Cyanocobalamin Injection) 1,000 Mcg/Ml Inj, 1,000 MCG IM MONTHLY, (Reported) Entered as Reported by: GRIFFIN ORTEGA on 07/24/21 1145 Cyclobenzaprine HCl (Cyclobenzaprine HCl) 10 Mg Tablet, 10 MG PO Q8H PRN for SPASMS Prescribed by: MAKAYLA HAWKINS on 02/28/21 0942 Dextromethorphan Polistirex (Delsym) 30 Mg/5 Ml Petty.er.12h, 10 ML PO BID, (Reported) Entered as Reported by: GRIFFIN ORTEGA on 07/24/21 1145 Diphenhydramine HCl (Benadryl) 25 Mg Capsule, 25 MG PO HS PRN for SLEEP, (Reported) Entered as Reported by: EMILIO SHEPPARD on 10/26/19 0812 Doxycycline Hyclate (Doxycycline Hyclate) 100 Mg Tablet, 100 MG PO BID, (Reported) Entered as Reported by: GRIFFIN ORTEGA on 07/24/21 1139 Estradiol (Estrace Tablet) 1 Mg Tablet, 1 MG PO DAILY, (Reported) Entered as Reported by: GRIFFIN ORTEGA on 07/24/21 1145 Famotidine (Pepcid) 20 Mg Tablet, 20 MG PO BID Prescribed by: IZABELA MAC on 09/28/21 1539 Gabapentin (Neurontin) 300 Mg Capsule, 300 MG PO TID PRN for PAIN-MODERATE (5-7) Prescribed by: IZABELA MAC on 10/11/21 1552 Glyburide (Glyburide) 2.5 Mg Tablet, 2.5 MG PO DAILY, (Reported) Entered as Reported by: GRIFFIN ORTEGA on 07/24/21 1145 Hydrocodone/Acetaminophen (Hydrocodone-Acetamin 5-325 mg) 1 Each Tablet, 2 EACH PO Q6H PRN for PAIN-MILD (1-4), (Reported) Entered as Reported by: EMILIO SHEPPARD on 10/26/19 0812 Metoclopramide HCl (Reglan) 5 Mg Tablet, 5 MG PO Q6H PRN for NAUSEA/VOMITING-3RD LINE Prescribed by: IZABELA MAC on 03/13/21 1301 Ondansetron (Ondansetron Odt) 8 Mg Tab.rapdis, 8 MG PO Q8H PRN for NAUSEA/VOMITING, (Reported) Entered as Reported by: EMILIO SHEPPARD on 10/26/19 0812 Promethazine HCl (Promethazine Tablet) 25 Mg Tablet, 25 MG PO Q6H PRN for NAUSEA/VOMITING, (Reported) Entered as Reported by: LEX HOSKINS on 12/07/20 0916 Ropinirole HCl (Ropinirole HCl) 4 Mg Tablet, 4 MG PO HS, (Reported) Entered as Reported by: LEX HOSKINS on 06/28/17 1010 Sertraline HCl (Sertraline HCl) 100 Mg Tablet, 100 MG PO HS, (Reported) Entered as Reported by: LEX HOSKINS on 12/07/20 0912 Sitagliptin Phos/Metformin HCl (Janumet Xr 50-1,000 mg Tablet) 1 Each Tbmp.24hr, 2 TAB-CAP PO DAILY@1900, (Reported) Entered as Reported by: LEX HOSKINS on 12/07/20 0916 Review of Systems Review of Systems Constitutional: see HPI; No chills, No diaphoresis; dizziness; No fever; m alaise, weakness EENTM: no symptoms reported Respiratory: no symptoms reported Gastrointestinal: see HPI, abdominal pain; No constipation; diarrhea (CHRONIC LOOSE STOOLS/NORMAL FOR HER), loss of appetite; No nausea, No vomiting Genitourinary: see HPI, decreased output Musculoskeletal: see HPI, back pain Skin: no symptoms reported Psychiatric/Neurological: See HPI, Headache Hematologic/Lymphatic: No Symptoms Reported Immunological/Allergic: no symptoms reported Past Uhagyyb-Weafgk-Yiewri Hx Patient Social History Tobacco Use?: No Use of E-Cig and/or Vaping dev: No Substance use?: No Alcohol Use?: No Immunizations Up To Date Tetanus Booster (TDap): Less than 5yrs PED Vaccines UTD: No Influenza Vaccine Up-to-Date: No; Not Current First/Initial COVID19 Vaccinat: AUGUST 2021 Second COVID19 Vaccination Alvaro: AUGUST 2021 Third COVID19 Vaccination Date: AUGUST 2021 Seasonal Allergies Seasonal Allergies: No Past Medical History Surgery/Hospitalization HX: several surgeries including 1 kidney removal, appendectomy, cammie., and power port placement, POWER PORT REMOVAL, HYSTERECTOMY Surgeries: Yes (hernia repair x2, knee scopes, port placement) Adenoidectomy, Appendectomy, Gallbladder, Hysterectomy, Nephrectomy, Orthopedic, Tonsillectomy Respiratory: Yes Asthma Currently Using CPAP: No Currently Using BIPAP: No Cardiac: Yes Hypertension Neurological: Yes Headaches /Migraines Reproductive Disorders: Yes (HX ENDOMETRIOSIS ) 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: 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 [employer] HEL[employer] History: Hysterectomy Sexually Transmitted Disease: No HIV/AIDS: No Genitourinary: Yes (S/P LEFT NEPHRECTOMY) UTI-Chronic Gastrointestinal: Yes (CHRONIC ABD PAIN/N/V./D) Abdominal Hernia, Gastroesophageal Reflux, Liver Disease/Jaundice, Obstructive Bowel, Pancreatitis, Chronic Diarrhea, Polyps Musculoskeletal: Yes (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) Chronic Back Pain Endocrine: Yes (OBESITY) Diabetes, Non-Insulin dep HEENT: No Loss of Vision: Denies Hearing Impairment: Denies Cancer: Yes Kidney Did You Recieve Any Treatments: Yes What Type of Treatment Did You: Surgical Intervention Psychosocial: Yes Anxiety, Depression Integumentary: No Herpes Blood Disorders: No Adverse Reaction/Blood Tranf: No (N/A) Family Medical History Cardiovascular disease 19 FATHER Completed stroke 19 FATHER Diabetes mellitus 19 FATHER Hypercholesterolemia 19 FATHER 19 MOTHER Hypertension 19 FATHER 19 MOTHER Neoplasm 19 MOTHER Psychosocial problem 19 FATHER 19 MOTHER No Pertinent Family Hx, Cancer, Diabetes, Hypertension PSH: -RIGHT KNEE SCOPE X 5 -LEFT KNEE SCOPE X 2 -TONSILLECTOMY / ADENOIDECTOMY -APPENDECTOMY -CHOLECYSTECTOMY -NASAL FRACTURE REPAIR -COCCYX REMOVAL -LEFT NEPHRECTOMY FOR MALIGNANCY -LEFT MID ABDOMEN INCISIONAL HERNIA REPAIR -DRAINAGE OF ABDOMINAL WALL ABSCESS -MULTIPLE EGD'S AND COLONOSCOPIES--LAST ONE DONE HERE 10/26/19 -HYSTERECTOMY / BILATERAL SALPINGO-OOPHORECTOMY 2007 -06/23/20--RIGHT CHEST WALL/SHOULDER INJECTION FOR THORACIC OUTLET SYNDROME--DONE IN -PORT REMOVED FROM LEFT CHEST 07/24/21 FOR NON-FUNCTIONING PORT-BY DR. MARROQUIN Physical Exam Vital Signs Vital Signs - First Documented 11/26/21 19:27 Temp 36.1 Pulse 118 Resp 24 B/P (MAP) 150/94 (112) Pulse Ox 97 Capillary Refill : Height, Weight, BMI Height: 5'3.00" Weight: 246lbs. 0oz. [id number]; 45.00 BMI Method:Stated General Appearance: No Apparent Distress, WD/WN, Obese, Other (DOES NOT APPEAR ILL OR TO BE IN ANY DISCOMFORT OR DISTRESS; WALKS UPRIGHT AND MOVES WITHOUT DIFFICULTY) HEENT: PERRL/EOMI, Normal ENT Inspection, Moist Mucous Membranes Neck: Normal Inspection Respiratory: Normal Breath Sounds, No Accessory Muscle Use, No Respiratory Distress Cardiovascular: Regular Rate, Rhythm, No Edema, No JVD, No Murmur, Normal Peripheral Pulses Gastrointestinal: Soft; No Distended, No Guarding, No Mass, No Rebound; Tenderness (MILD LLQ TENDERNESS--STATES IS NORMAL FOR. 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 Norm as Tested Skin: Normal Color, Warm/Dry; No Rash Progress/Results/Core Measures Suspected Sepsis SIRS Temperature: Pulse: 118 Respiratory Rate: 24 Laboratory Tests 6/12/22 19:40: White Blood Count 10.7 Blood Pressure 150 /94 Mean: 112 Laboratory Tests 11/26/21 19:40: Creatinine 1.08, Platelet Count 234, Total Bilirubin 0.3 Results/Orders Lab Results Laboratory Tests Test 11/26/21 19:40 11/26/21 20:06 11/26/21 20:10 Range/Units White Blood Count 10.7 4.3-11.0 10^3/uL Red Blood Count 4.62 3.80-5.11 10^6/uL Hemoglobin 12.5 11.5-16.0 g/dL Hematocrit 39 35-52 % Mean Corpuscular Volume 84 80-99 fL Mean Corpuscular Hemoglobin 27 25-34 pg Mean Corpuscular Hemoglobin Concent 32 32-36 g/dL Red Cell Distribution Width 13.7 10.0-14.5 % Platelet Count 234 130-400 10^3/uL Mean Platelet Volume 10.9 9.0-12.2 fL Immature Granulocyte % (Auto) 1 % Neutrophils (%) (Auto) 59 42-75 % Lymphocytes (%) (Auto) 32 12-44 % Monocytes (%) (Auto) 5 0-12 % Eosinophils (%) (Auto) 3 0-10 % Basophils (%) (Auto) 0 0-10 % Neutrophils # (Auto) 6.3 1.8-7.8 X 10^3 Lymphocytes # (Auto) 3.4 1.0-4.0 X 10^3 Monocytes # (Auto) 0.5 0.0-1.0 X 10^3 Eosinophils # (Auto) 0.4 H 0.0-0.3 10^3/uL Basophils # (Auto) 0.0 0.0-0.1 10^3/uL Immature Granulocyte # (Auto) 0.1 0.0-0.1 10^3/uL Percent Immature Platelet Fraction 7.0 0.0-7.6 % Sodium Level 142 135-145 MMOL/L Potassium Level 4.1 3.6-5.0 MMOL/L Chloride Level 106 98-107 MMOL/L Carbon Dioxide Level 17 L 21-32 MMOL/L Anion Gap 19 H 5-14 MMOL/L Blood Urea Nitrogen 20 H 7-18 MG/DL Creatinine 1.08 0.60-1.30 MG/DL Estimat Glomerular Filtration Rate 68 BUN/Creatinine Ratio 19 Glucose Level 131 H 70-105 MG/DL Calcium Level 10.1 8.5-10.1 MG/DL Corrected Calcium 9.8 8.5-10.1 MG/DL Magnesium Level 1.9 1.6-2.4 MG/DL Total Bilirubin 0.3 0.1-1.0 MG/DL Aspartate Amino Transf (AST/SGOT) 58 H 5-34 U/L Alanine Aminotransferase (ALT/SGPT) 63 H 0-55 U/L Alkaline Phosphatase 69 40-136 U/L Total Protein 8.2 6.4-8.2 GM/DL Albumin 4.4 3.2-4.5 GM/DL Amylase Level 81 25-125 U/L Lipase 68 8-78 U/L Urine Color YELLOW Urine Clarity CLEAR Urine pH 5.5 5-9 Urine Specific [place] >=1.030 1.016-1.022 Urine Protein TRACE H NEGATIVE Urine Glucose (UA) NEGATIVE NEGATIVE Urine Ketones TRACE H NEGATIVE Urine Nitrite NEGATIVE NEGATIVE Urine Bilirubin NEGATIVE NEGATIVE Urine Urobilinogen 0.2 < = 1.0 MG/DL Urine Leukocyte Esterase TRACE H NEGATIVE Urine RBC (Auto) NEGATIVE NEGATIVE Urine RBC NONE /HPF Urine WBC 0-2 /HPF Urine Squamous Epithelial Cells 0-2 /HPF Urine Crystals NONE /LPF Urine Bacteria TRACE /HPF Urine Casts NONE /LPF Urine Mucus NEGATIVE /LPF Urine Culture Indicated NO Urine Opiates Screen NEGATIVE NEGATIVE Urine Oxycodone Screen NEGATIVE NEGATIVE Urine Methadone Screen NEGATIVE NEGATIVE Urine Propoxyphene Screen NEGATIVE NEGATIVE Urine Barbiturates Screen NEGATIVE NEGATIVE Ur Tricyclic Antidepressants Screen NEGATIVE NEGATIVE Urine Phencyclidine Screen NEGATIVE NEGATIVE Urine Amphetamines Screen NEGATIVE NEGATIVE Urine Methamphetamines Screen NEGATIVE NEGATIVE Urine Benzodiazepines Screen NEGATIVE NEGATIVE Urine Cocaine Screen NEGATIVE NEGATIVE Urine Cannabinoids Screen NEGATIVE NEGATIVE Influenza Type A (RT-PCR) Not Detected Not Detecte Influenza Type B (RT-PCR) Not Detected Not Detecte SARS-CoV-2 RNA (RT-PCR) Not Detected Not Detecte My Orders Orders - YAN CHAPARRO DO Ed Iv/Invasive Line Start (11/26/21 19:31) Monitor-Rhythm Ecg Trace Only (11/26/21 19:31) Amylase (11/26/21 19:31) Cbc With Automated Diff (11/26/21 19:31) Comprehensive Metabolic Panel (11/26/21 19:31) Drug Screen Stat (Urine) (11/26/21 19:31) Lipase (11/26/21 19:31) Magnesium (11/26/21 19:31) Ua Culture If Indicated (11/26/21 19:31) Covid 19 Inhouse Test (11/26/21 19:59) Ed Iv/Invasive Line Start (11/26/21 19:59) Ns Iv 1000 Ml (Sodium Chloride 0.9%) (11/26/21 20:00) Influenza A And B By Pcr (11/26/21 19:59) Isolation Central Supply Req (11/26/21 19:59) Vital Signs/I&O 11/26/21 11/26/21 19:27 21:47 Temp 36.1 36.1 Pulse 118 97 Resp 24 20 B/P (MAP) 150/94 (112) 145/89 Pulse Ox 97 98 Capillary Refill : Blood Pressure Mean: 112 Progress Note : Progress Note GIVEN IV FLUIDS COVID AND FLU TESTING DONE NO DETERIORATION IN PT'S CONDITION DURING ER STAY PT'S PAIN IS EXACTLY THE SAME HER CHRONIC LEFT SIDED ABDOMINAL PAIN, WITH NO ACUTE LAB FINDINGS, PT AGREES TO NO RADIOLOGY STUDIES AT THIS TIME, DUE TO MULTITUDE OF PRIOR CT SCANS AND XRAYS FOR THIS PROBLEM Departure Impression Primary Impression: CHRONIC LEFT SIDED ABDOMINAL PAIN Disposition: 01 HOME, SELF-CARE Condition: Stable Departure-Patient Inst. Decision time for Depature: 21:32 Referrals: LINDSEY MARROQUIN BETHANY N MD (PCP/Family) Primary Care Physician Patient Instructions: CHRONIC PAIN Add. Discharge Instructions: CONTINUE ALL YOUR HOME MEDICATIONS PRESCRIBED FOLLOW UP WITH DR. MARROQUIN THIS WEEK FOR FURTHER CARE All discharge instructions reviewed with patient and/or family. Voiced understanding. YAN CHAPARRO DO Nov 26, 2021 19:57
[2021-11-26] MEDS ORDERED: NS IV 1000 ML 1,000 ML IV SCH (20:00)
[2021-11-26 20:01] LABS: BASOPHILS % (AUTO) 0 % (0-10); EOSINOPHILS % (AUTO) 3 % (0-10); HEMATOCRIT 39 % (35-52); HEMOGLOBIN 12.5 g/dL (11.5-16.0); LYMPHOCYTES # (AUTO) 3.4 X 10^3 (1.0-4.0); LYMPHOCYTES % (AUTO) 32 % (12-44); MEAN CORPUSCULAR HEMOGLOBIN 27 pg (25-34); MEAN CORPUSCULAR HGB CONC 32 g/dL (32-36); MEAN CORPUSCULAR VOLUME 84 fL (80-99); MEAN PLATELET VOLUME 10.9 fL (9.0-12.2); MONOCYTES % (AUTO) 5 % (0-12); NEUTROPHILS # (AUTO) 6.3 X 10^3 (1.8-7.8); NEUTROPHILS % (AUTO) 59 % (42-75); PLATELET COUNT 234 10^3/uL (130-400); WHITE BLOOD COUNT 10.7 10^3/uL (4.3-11.0)
[2021-11-26 20:02] LABS: EOSINOPHILS # (AUTO) 0.4 10^3/uL (0.0-0.3); MONOCYTES # (AUTO) 0.5 X 10^3 (0.0-1.0)
[2021-11-26 20:24] LABS: BILIRUBIN,TOTAL 0.3 MG/DL (0.1-1.0); CALCIUM 10.1 MG/DL (8.5-10.1); CREATININE SERUM 1.08 MG/DL (0.60-1.30); MAGNESIUM 1.9 MG/DL (1.6-2.4); POTASSIUM 4.1 MMOL/L (3.6-5.0)
[2021-11-26 20:25] LABS: ALBUMIN 4.4 GM/DL (3.2-4.5); TOTAL PROTEIN 8.2 GM/DL (6.4-8.2)
[2021-11-26 20:47] LABS: AMPHETAMINE SCREEN, URINE NEGATIVE (NEGATIVE); BARBITURATE SCREEN URINE NEGATIVE (NEGATIVE); BENZODIAZEPINES SCREEN URINE NEGATIVE (NEGATIVE); CANNABINOID SCREEN, URINE NEGATIVE (NEGATIVE); COCAINE SCREEN URINE NEGATIVE (NEGATIVE); METHADONE STAT NEGATIVE (NEGATIVE); OPIATE SCREEN URINE NEGATIVE (NEGATIVE); OXYCODONE STAT NEGATIVE (NEGATIVE); PROPOXYPHENE STAT NEGATIVE (NEGATIVE); TRICYCLIC ANTIDEPRESSANTS SCRE NEGATIVE (NEGATIVE)
[2021-11-26 21:27] LABS: CLARITY,URINE CLEAR; COLOR,URINE YELLOW; GLUCOSE, URINE (UA) NEGATIVE (NEGATIVE); KETONES,URINE TRACE (NEGATIVE); NITRITE,URINE NEGATIVE (NEGATIVE); PH,URINE 5.5 (5-9); PROTEIN,URINE TRACE (NEGATIVE)
[2021-11-26 21:28] LABS: BACTERIA,URINE TRACE /HPF; BILIRUBIN,URINE NEGATIVE (NEGATIVE); LEUKOCYTE ESTERASE ,URINE TRACE (NEGATIVE); SQUAMOUS EPITHELIAL CELL,UR 0-2 /HPF; WBC,URINE 0-2 /HPF
[2021-11-26 21:47] VITALS: BP 145/89
== END 2021-11-26 21:47 | disposition home or self-care (01) ==
LOC: EDUNIT# 19:04 → ER 19:06
DX: G89.29 Other chronic pain (principal); R10.32 Left lower quadrant pain; Z20.822 Contact with and (suspected) exposure to COVID-19; Z90.49 Acquired absence of other specified parts of digestive tract; Z90.710 Acquired absence of both cervix and uterus
CPT/HCPCS: 36415; 80053; 80306; 81000; 82150; 83690; 83735; 85025; 87636

== ENCOUNTER 2021-11-30 20:59 | Outpatient (CLI) | payer MEDICARE, MEDICAID | END 2021-12-01 06:20 | disposition home or self-care (01) | LOC: SLEEP 20:59 | PROVIDERS: ATTEND Otolaryngology Otolaryngology/Facial Plastic Surgery | DX: G47.30 Sleep apnea, unspecified (principal) | CPT/HCPCS: 95810 ==

== ENCOUNTER 2021-12-02 15:55 | Emergency (ER) | payer MEDICARE, MEDICAID ==
[~2021-12-02] VITALS: Ht 160 cm; Wt 117.9 kg
--- NOTE | 2021-12-02 16:10 | ED Upper Extremity ---
General Chief Complaint: Upper Extremity Stated Complaint: R SHOULDER PAIN Source: patient Exam Limitations: no limitations History of Present Illness Date Seen by Provider: Dec 02, 2021 Time Seen by Provider: 16:02 Initial Comments Jaylyn is a 36-year-old female who presents to the emergency room with a chief complaint of right shoulder pain. She states she had a mechanical trip and fall yesterday around noon, she fell onto her shoulder and hyperextended her head to the left. She complains of some paraspinous muscle pain as well as decreased range of motion of the shoulder. She states the pain radiates down into her elbow. She is taken Tylenol without any relief of symptoms. She states she slept on an ice pack last night without any relief of symptoms. She denies numbness to the arm or fingers. Movement makes it worse. No other complaints of illness or injury. Onset: yesterday Severity: moderate Pain/Injury Location: right shoulder Method of Injury: fell Modifying Factors: Improves With Immobilization; Worse With Movement Allergies and Home Medications Allergies Coded Allergies: fentanyl (Verified Allergy, Unknown, 10/16/18) meperidine (Verified Allergy, Unknown, 10/16/18) penicillin G (Verified Allergy, Unknown, 10/16/18) prochlorperazine (Verified Allergy, Unknown, 03/15/21) trimethobenzamide (Unverified Allergy, Unknown, 09/05/20) vancomycin (Verified Adverse Reaction, Intermediate, severe itching, 10/26/19) Patient Home Medication List Home Medication List Reviewed: Yes Acetaminophen (Tylenol Extra Strength) 500 Mg Tablet, 1,000 MG PO Q8H PRN for PAIN-MILD (1-4), (Reported) Entered as Reported by: EMILIO SHEPPARD on 10/26/19 0812 Acetaminophen with Codeine (Acetaminop-Codein 240-24 mg/10) 10 Ml Solution, 10 ML PO Q6H PRN for cough Prescribed by: GEO BORJA on 09/29/212037 Albuterol Sulfate (Albuterol Sulfate) 2.5 Mg/0.5 Ml Vial.neb, 2.5 MG INH Q4H, (Reported) Entered as Reported by: GRIFFIN ORTEGA on 07/24/21 1145 Atorvastatin Calcium (Atorvastatin Calcium) 20 Mg Tablet, 20 MG PO HS, (Reported) Entered as Reported by: LEX HOSKINS on 12/07/20 0916 Benzonatate (Tessalon Perles) 100 Mg Capsule, 100 MG PO DAILY, (Reported) Entered as Reported by: GRIFFIN ORTEGA on 07/24/21 1145 Cyanocobalamin (Cyanocobalamin Injection) 1,000 Mcg/Ml Inj, 1,000 MCG IM MONTHLY, (Reported) Entered as Reported by: GRIFFIN ORTEGA on 07/24/21 1145 Cyclobenzaprine HCl (Cyclobenzaprine HCl) 10 Mg Tablet, 10 MG PO Q8H PRN for SPASMS Prescribed by: MAKAYLA HAWKINS on 02/28/21 0942 Dextromethorphan Polistirex (Delsym) 30 Mg/5 Ml Petty.er.12h, 10 ML PO BID, (Reported) Entered as Reported by: GRIFFIN ORTEGA on 07/24/21 1145 Diphenhydramine HCl (Benadryl) 25 Mg Capsule, 25 MG PO HS PRN for SLEEP, (Reported) Entered as Reported by: EMILIO SHEPPARD on 10/26/19 0812 Doxycycline Hyclate (Doxycycline Hyclate) 100 Mg Tablet, 100 MG PO BID, (Reported) Entered as Reported by: GRIFFIN ORTEGA on 07/24/21 1139 Estradiol (Estrace Tablet) 1 Mg Tablet, 1 MG PO DAILY, (Reported) Entered as Reported by: GRIFFIN ORTEGA on 07/24/21 1145 Famotidine (Pepcid) 20 Mg Tablet, 20 MG PO BID Prescribed by: IZABELA MAC on 09/28/21 1539 Gabapentin (Neurontin) 300 Mg Capsule, 300 MG PO TID PRN for PAIN-MODERATE (5-7) Prescribed by: IZABELA MAC on 10/11/21 1552 Glyburide (Glyburide) 2.5 Mg Tablet, 2.5 MG PO DAILY, (Reported) Entered as Reported by: GRIFFIN ORTEGA on 07/24/21 1145 Hydrocodone/Acetaminophen (Hydrocodone-Acetamin 5-325 mg) 1 Each Tablet, 2 EACH PO Q6H PRN for PAIN-MILD (1-4), (Reported) Entered as Reported by: EMILIO SHEPPARD on 10/26/19 0812 Metoclopramide HCl (Reglan) 5 Mg Tablet, 5 MG PO Q6H PRN for NAUSEA/VOMITING-3RD LINE Prescribed by: IZABELA MAC on 03/13/21 1301 Ondansetron (Ondansetron Odt) 8 Mg Tab.rapdis, 8 MG PO Q8H PRN for NAUSEA/VOMITING, (Reported) Entered as Reported by: EMILIO SHEPPARD on 10/26/19 0812 Promethazine HCl (Promethazine Tablet) 25 Mg Tablet, 25 MG PO Q6H PRN for NAUSEA/VOMITING, (Reported) Entered as Reported by: LEX HOSKINS on 12/07/20 0916 Ropinirole HCl (Ropinirole HCl) 4 Mg Tablet, 4 MG PO HS, (Reported) Entered as Reported by: LEX HOSKINS on 06/28/17 1010 Sertraline HCl (Sertraline HCl) 100 Mg Tablet, 100 MG PO HS, (Reported) Entered as Reported by: LEX HOSKINS on 12/07/20 0912 Sitagliptin Phos/Metformin HCl (Janumet Xr 50-1,000 mg Tablet) 1 Each Tbmp.24hr, 2 TAB-CAP PO DAILY@1900, (Reported) Entered as Reported by: LEX HOSKINS on 12/07/20 0916 Review of Systems Constitutional: see HPI EENTM: no symptoms reported Respiratory: no symptoms reported Cardiovascular: no symptoms reported Gastrointestinal: no symptoms reported Musculoskeletal: joint pain (right shoulder), neck pain Skin: no symptoms reported Psychiatric/Neurological: No Symptoms Reported All Other Systems Reviewed Negative Unless Noted: Yes Past Lmyjmkd-Ipvhnf-Osnkzp Hx Immunizations Up To Date Tetanus Booster (TDap): Less than 5yrs PED Vaccines UTD: No First/Initial COVID19 Vaccinat: AUGUST 2021 Second COVID19 Vaccination Alvaro: AUGUST 2021 Third COVID19 Vaccination Date: AUGUST 2021 Seasonal Allergies Seasonal Allergies: No Past Medical History Surgery/Hospitalization HX: several surgeries including 1 kidney removal, appendectomy, cammie., and power port placement, POWER PORT REMOVAL, HYSTERECTOMY Surgeries: Yes (hernia repair x2, knee scopes, port placement) Adenoidectomy, Appendectomy, Gallbladder, Hysterectomy, Nephrectomy, Orthopedic, Tonsillectomy Respiratory: Yes Asthma Currently Using CPAP: No Currently Using BIPAP: No Cardiac: Yes Hypertension Neurological: Yes Headaches /Migraines Reproductive Disorders: Yes (HX ENDOMETRIOSIS ) 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: 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 [employer] History: Hysterectomy Sexually Transmitted Disease: No HIV/AIDS: No Genitourinary: Yes (S/P LEFT NEPHRECTOMY) UTI-Chronic Gastrointestinal: Yes (CHRONIC ABD PAIN/N/V./D) Abdominal Hernia, Gastroesophageal Reflux, Liver Disease/Jaundice, Obstructive Bowel, Pancreatitis, Chronic Diarrhea, Polyps Musculoskeletal: Yes (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) Chronic Back Pain Endocrine: Yes (OBESITY) Diabetes, Non-Insulin dep HEENT: No Loss of Vision: Denies Hearing Impairment: Denies Cancer: Yes Kidney Did You Recieve Any Treatments: Yes What Type of Treatment Did You: Surgical Intervention Psychosocial: Yes Anxiety, Depression Integumentary: No Herpes Blood Disorders: No Adverse Reaction/Blood Tranf: No (N/A) Family Medical History Cardiovascular disease 19 FATHER Completed stroke 19 FATHER Diabetes mellitus 19 FATHER Hypercholesterolemia 19 FATHER 19 MOTHER Hypertension 19 FATHER 19 MOTHER Neoplasm 19 MOTHER Psychosocial problem 19 FATHER 19 MOTHER No Pertinent Family Hx, Cancer, Diabetes, Hypertension PSH: -RIGHT KNEE SCOPE X 5 -LEFT KNEE SCOPE X 2 -TONSILLECTOMY / ADENOIDECTOMY -APPENDECTOMY -CHOLECYSTECTOMY -NASAL FRACTURE REPAIR -COCCYX REMOVAL -LEFT NEPHRECTOMY FOR MALIGNANCY -LEFT MID ABDOMEN INCISIONAL HERNIA REPAIR -DRAINAGE OF ABDOMINAL WALL ABSCESS -MULTIPLE EGD'S AND COLONOSCOPIES--LAST ONE DONE HERE 10/26/19 -HYSTERECTOMY / BILATERAL SALPINGO-OOPHORECTOMY 2007 -06/23/20--RIGHT CHEST WALL/SHOULDER INJECTION FOR THORACIC OUTLET SYNDROME--DONE IN -PORT REMOVED FROM LEFT CHEST 07/24/21 FOR NON-FUNCTIONING PORT-BY DR. MARROQUIN Physical Exam Vital Signs Vital Signs - First Documented 12/02/21 16:00 Temp 35.9 Pulse 88 Resp 16 B/P (MAP) 150/92 (111) O2 Delivery Room Air Capillary Refill : Height, Weight, BMI Height: 5'3.00" Weight: 246lbs. 0oz. [id number]; 45.00 BMI Method:Stated General Appearance: WD/WN, no apparent distress HEENT: PERRL/EOMI Neck: full range of motion, supple, normal inspection, other (tenderness over the trapezius muscle right shoulder/posterior right necl) Cardiovascular: regular rate, rhythm Respiratory: lungs clear, normal breath sounds, no respiratory distress Shoulder: normal inspection, limited ROM, soft tissue tenderness Elbow/Forearm: normal inspection, non-tender, no evidence of injury, normal ROM, Right Wrist: Yes normal inspection, Yes non-tender, Yes no evidence of injury, Yes normal ROM Hand: normal inspection, non-tender, no evidence of injury, normal ROM, Right Neurologic/Psychiatric: alert, normal mood/affect, oriented x 3 Skin: normal color, warm/dry Progress/Results/Core Measures Results/Orders My Orders Orders - GEO BORJA MD Shoulder, Right, 3 Views (12/02/21 16:06) Orphenadrine Inj (Ed Only) (Norflex Inje (12/02/21 16:15) Ketorolac Injection (Toradol Injection) (12/02/21 16:15) Medications Given in ED Current Medications Medications Dose Ordered Sig/Neal Route Start Time Stop Time Status Last Admin Dose Admin Ketorolac Tromethamine 30 mg ONCE ONCE IM 12/02/21 16:15 12/02/21 16:16 DC 12/02/21 16:12 30 MG Orphenadrine Citrate 60 mg ONCE ONCE IM 12/02/21 16:15 12/02/21 16:16 DC 12/02/21 16:12 60 MG Vital Signs/I&O 12/02/21 16:00 Temp 35.9 Pulse 88 Resp 16 B/P (MAP) 150/92 (111) O2 Delivery Room Air Diagnostic Imaging Diagonstic Imaging: Xray Comments [facility], [place] NAME: JAYLYN DELGADO [facility] REC#: [id number] PT STATUS: REG ER : 1985 PHYSICIAN: GEO BORJA MD ADMIT DATE: 12/02/21/ER Draft Date of Exam:12/02/21 SHOULDER, RIGHT, 3 VIEWS INDICATION: Fall, pain. FINDINGS: Three-view right shoulder showed no fracture or dislocation. The glenohumeral and acromioclavicular joints appear unremarkable. The clavicle is unremarkable. The visualized right ribs, pleura and upper lung are unremarkable. IMPRESSION: Normal three-view right shoulder. Dictated on workstation # [id number] Dict: 12/02/21 1623 Trans: 12/02/21 1626 [facility] [id number] Interpreted by: ISABELLA RAHMAN Electronically signed by: Departure Impression Primary Impression: Contusion of right shoulder Qualified Codes: S40.011A - Contusion of right shoulder, initial encounter Disposition: 01 HOME, SELF-CARE Condition: Stable Departure-Patient Inst. Decision time for Depature: 16:35 Referrals: CARMEN GIBBS MD (PCP/Family) Primary Care Physician Patient Instructions: Minor Contusion ED Add. Discharge Instructions: Continue to alternate heat and ice to your right shoulder. Tylenol 1 g every 6 hours as needed for pain. You can also try [id number] pain relieving patches such as Salonpas. Biofreeze may also help. Use your muscle relaxer as needed. Follow-up with your primary care physician. GEO BORJA MD Dec 02, 2021 16:09
[2021-12-02] MEDS ORDERED: KETOROLAC 30 MG/ML VIAL IM ONE (16:15)
[2021-12-02] MEDS ORDERED: ORPHENADRINE 60 MG/2 ML (NORFLEX) AMP (ED ONLY) IM ONE (16:15)
--- NOTE | 2021-12-02 16:27 | Diagnostic Imaging Report ---
INDICATION: Fall, pain. FINDINGS: Three-view right shoulder showed no fracture or dislocation. The glenohumeral and acromioclavicular joints appear unremarkable. The clavicle is unremarkable. The visualized right ribs, pleura and upper lung are unremarkable. IMPRESSION: Normal three-view right shoulder. Dictated by: Dictated on workstation # [id number]
[2021-12-02 16:41] VITALS: BP 141/82
== END 2021-12-02 16:41 | disposition home or self-care (01) ==
LOC: EDUNIT# 15:55 → ER 15:56
DX: S40.011A Contusion of right shoulder, initial encounter (principal); E66.9 Obesity, unspecified; Z68.42 Body mass index [BMI] 45.0-49.9, adult; W01.0XXA Fall on same level from slipping, tripping and stumbling without subsequent striking against object, initial encounter
CPT/HCPCS: 73030

== ENCOUNTER 2022-01-05 19:46 | Emergency (ER) | payer MEDICARE, MEDICAID ==
[~2022-01-05] VITALS: Ht 160 cm; Wt 117.9 kg
[2022-01-05] MEDS ORDERED: NS IV 1000 ML 1,000 ML IV STA (20:10)
--- NOTE | 2022-01-05 20:14 | ED General ---
General Chief Complaint: General Problems/Pain Stated Complaint: FATIGUE Nursing Triage Note: C/O GENERALIZED FATIGUE, INTERMITTANT N/V X1 WEEK. SEEN AT [facility] SATURDAY FOR SAME REPORTS COVID/FLU NEGATIVE. Source of Information: Patient Exam Limitations: No Limitations History of Present Illness Date Seen by Provider: Jan 05, 2022 Time Seen by Provider: 20:12 Initial Comments Patient is a 36-year-old female who presents ED with fatigue weakness vomiting, abdominal pain. Patient states she has chronic abdominal pain with a history of pancreatitis. She reports sharp upper abdominal pain without radiation. She states this pain is chronic. She vomited once yesterday and today. Started not feeling well 1 week ago with fatigue weakness. Saturday she went to her primary care physician tested negative for COVID. She states she has been feeling dehydrated not improving with fluids. Decreased urination today. She has a history of colectomy, nephrectomy. She states she has a history of kidney cancer. Denies history of gastric ulcers, GERD. Patient has been taking Phenergan and Zofran at home without much improvement. No one else at home with similar symptoms. Denies fever, chest pain, cough, shortness of breath, sore throat, ear pain, unilateral muscle weakness or sensory changes. Patient reports normal bowel movements Allergies and Home Medications Allergies Coded Allergies: fentanyl (Verified Allergy, Unknown, 10/16/18) meperidine (Verified Allergy, Unknown, 10/16/18) penicillin G (Verified Allergy, Unknown, 10/16/18) prochlorperazine (Verified Allergy, Unknown, 03/15/21) trimethobenzamide (Unverified Allergy, Unknown, 09/05/20) vancomycin (Verified Adverse Reaction, Intermediate, severe itching, 10/26/19) Patient Home Medication List Home Medication List Reviewed: Yes Acetaminophen (Tylenol Extra Strength) 500 Mg Tablet, 1,000 MG PO Q8H PRN for PAIN-MILD (1-4), (Reported) Entered as Reported by: EMILIO SHEPPARD on 10/26/19 08 Acetaminophen with Codeine (Acetaminop-Codein 240-24 mg/10) 10 Ml Solution, 10 ML PO Q6H PRN for cough Prescribed by: GEO BORJA on 09/29/212037 Albuterol Sulfate (Albuterol Sulfate) 2.5 Mg/0.5 Ml Vial.neb, 2.5 MG INH Q4H, (Reported) Entered as Reported by: GRIFFIN ORTEGA on 07/24/21 1145 Atorvastatin Calcium (Atorvastatin Calcium) 20 Mg Tablet, 20 MG PO HS, (Reported) Entered as Reported by: LEX HOSKINS on 12/07/20 0916 Benzonatate (Tessalon Perles) 100 Mg Capsule, 100 MG PO DAILY, (Reported) Entered as Reported by: GRIFFIN ORTEGA on 07/24/21 1145 Cyanocobalamin (Cyanocobalamin Injection) 1,000 Mcg/Ml Inj, 1,000 MCG IM MONTHLY, (Reported) Entered as Reported by: GRIFFIN ORTEGA on 07/24/21 1145 Cyclobenzaprine HCl (Cyclobenzaprine HCl) 10 Mg Tablet, 10 MG PO Q8H PRN for SPASMS Prescribed by: MAKAYLA HAWKINS on 02/28/21 0942 Dextromethorphan Polistirex (Delsym) 30 Mg/5 Ml Petty.er.12h, 10 ML PO BID, (Reported) Entered as Reported by: GRIFFIN ORTEGA on 07/24/21 1145 Diphenhydramine HCl (Benadryl) 25 Mg Capsule, 25 MG PO HS PRN for SLEEP, (Reported) Entered as Reported by: EMILIO SHEPPARD on 10/26/19 0812 Doxycycline Hyclate (Doxycycline Hyclate) 100 Mg Tablet, 100 MG PO BID, (Reported) Entered as Reported by: GRIFFIN ORTEGA on 07/24/21 1139 Estradiol (Estrace Tablet) 1 Mg Tablet, 1 MG PO DAILY, (Reported) Entered as Reported by: GRIFFIN ORTEGA on 07/24/21 1145 Famotidine (Pepcid) 20 Mg Tablet, 20 MG PO BID Prescribed by: IZABELA MAC on 09/28/21 1539 Gabapentin (Neurontin) 300 Mg Capsule, 300 MG PO TID PRN for PAIN-MODERATE (5-7) Prescribed by: IZABELA MAC on 10/11/21 1552 Glyburide (Glyburide) 2.5 Mg Tablet, 2.5 MG PO DAILY, (Reported) Entered as Reported by: GRIFFIN ORTEGA on 07/24/21 1145 Hydrocodone/Acetaminophen (Hydrocodone-Acetamin 5-325 mg) 1 Each Tablet, 2 EACH PO Q6H PRN for PAIN-MILD (1-4), (Reported) Entered as Reported by: EMILIO SHEPPARD on 10/26/19 0812 Metoclopramide HCl (Reglan) 5 Mg Tablet, 5 MG PO Q6H PRN for NAUSEA/VOMITING-3RD LINE Prescribed by: IZABELA MAC on 03/13/21 1301 Ondansetron (Ondansetron Odt) 8 Mg Tab.rapdis, 8 MG PO Q8H PRN for NAUSEA/VOMITING, (Reported) Entered as Reported by: EMILIO SHEPPARD on 10/26/19 0812 Promethazine HCl (Promethazine Tablet) 25 Mg Tablet, 25 MG PO Q6H PRN for NAUSEA/VOMITING, (Reported) Entered as Reported by: LEX HOSKINS on 12/07/20 0916 Ropinirole HCl (Ropinirole HCl) 4 Mg Tablet, 4 MG PO HS, (Reported) Entered as Reported by: LEX HOSKINS on 06/28/17 1010 Sertraline HCl (Sertraline HCl) 100 Mg Tablet, 100 MG PO HS, (Reported) Entered as Reported by: LEX HOSKINS on 12/07/20 0912 Sitagliptin Phos/Metformin HCl (Janumet Xr 50-1,000 mg Tablet) 1 Each Tbmp.24hr, 2 TAB-CAP PO DAILY@1900, (Reported) Entered as Reported by: LEX HOKSINS on 12/07/20 0916 Review of Systems Review of Systems Constitutional: No chills, No diaphoresis; malaise, weakness EENTM: No ear pain, No blurred vision, No double vision Respiratory: No cough, No dyspnea on exertion Cardiovascular: No chest pain, No edema Gastrointestinal: No abdominal pain, No constipation, No diarrhea; nausea, vomiting Musculoskeletal: No back pain, No joint pain Skin: No change in color All Other Systems Reviewed Negative Unless Noted: Yes Past Dqwklrl-Muuujd-Pygumw Hx Patient Social History Tobacco Use?: Yes Substance use?: No Alcohol Use?: No Pt feels they are or have been: No Immunizations Up To Date Tetanus Booster (TDap): Less than 5yrs PED Vaccines UTD: No First/Initial COVID19 Vaccinat: AUGUST 2021 Second COVID19 Vaccination Alvaro: AUGUST 2021 Third COVID19 Vaccination Date: AUGUST 2021 Seasonal Allergies Seasonal Allergies: No Past Medical History Surgery/Hospitalization HX: several surgeries including 1 kidney removal, appendectomy, cammie., and power port placement, POWER PORT REMOVAL, HYSTERECTOMY Surgeries: Yes (hernia repair x2, knee scopes, port placement) Adenoidectomy, Appendectomy, Gallbladder, Hysterectomy, Nephrectomy, Orthopedic, Tonsillectomy Respiratory: Yes Asthma Currently Using CPAP: No Currently Using BIPAP: No Cardiac: Yes Hypertension Neurological: Yes Headaches /Migraines Reproductive Disorders: Yes (HX ENDOMETRIOSIS ) 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: 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 Sexually Transmitted Disease: No HIV/AIDS: No Genitourinary: Yes (S/P LEFT NEPHRECTOMY) UTI-Chronic Gastrointestinal: Yes (CHRONIC ABD PAIN/N/V./D) Abdominal Hernia, Gastroesophageal Reflux, Liver Disease/Jaundice, Obstructive Bowel, Pancreatitis, Chronic Diarrhea, Polyps Musculoskeletal: Yes (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) Chronic Back Pain Endocrine: Yes (OBESITY) Diabetes, Non-Insulin dep HEENT: No Loss of Vision: Denies Hearing Impairment: Denies Cancer: Yes Kidney Did You Recieve Any Treatments: Yes What Type of Treatment Did You: Surgical Intervention Psychosocial: Yes Anxiety, Depression Integumentary: No Herpes Blood Disorders: No Adverse Reaction/Blood Tranf: No (N/A) Family Medical History Cardiovascular disease 19 FATHER Completed stroke 19 FATHER Diabetes mellitus 19 FATHER Hypercholesterolemia 19 FATHER 19 MOTHER Hypertension 19 FATHER 19 MOTHER Neoplasm 19 MOTHER Psychosocial problem 19 FATHER 19 MOTHER No Pertinent Family Hx, Cancer, Diabetes, Hypertension PSH: -RIGHT KNEE SCOPE X 5 -LEFT KNEE SCOPE X 2 -TONSILLECTOMY / ADENOIDECTOMY -APPENDECTOMY -CHOLECYSTECTOMY -NASAL FRACTURE REPAIR -COCCYX REMOVAL -LEFT NEPHRECTOMY FOR MALIGNANCY -LEFT MID ABDOMEN INCISIONAL HERNIA REPAIR -DRAINAGE OF ABDOMINAL WALL ABSCESS -MULTIPLE EGD'S AND COLONOSCOPIES--LAST ONE DONE HERE 10/26/19 -HYSTERECTOMY / BILATERAL SALPINGO-OOPHORECTOMY 2007 -06/23/20--RIGHT CHEST WALL/SHOULDER INJECTION FOR THORACIC OUTLET SYNDROME--DONE IN -PORT REMOVED FROM LEFT CHEST 07/24/21 FOR NON-FUNCTIONING PORT-BY DR. MARROQUIN Physical Exam Vital Signs Vital Signs - First Documented 01/05/22 20:00 Temp 36.8 Pulse 99 Resp 20 B/P (MAP) 176/85 (115) Pulse Ox 98 O2 Delivery Room Air Capillary Refill : Less Than 3 Seconds Height, Weight, BMI Height: 5'3.00" Weight: 246lbs. 0oz. [id number]; 46.00 BMI Method:Stated General Appearance: No Apparent Distress, WD/WN Eyes: Bilateral Eye Normal Inspection, Bilateral Eye PERRL, Bilateral Eye EOMI HEENT: PERRL/EOMI, TMs Normal, Normal ENT Inspection, Pharynx Normal Neck: Full Range of Motion, Normal Inspection, Non Tender, Supple Respiratory: Chest Non Tender, Lungs Clear, Normal Breath Sounds, No Accessory Muscle Use, No Respiratory Distress Cardiovascular: Regular Rate, Rhythm, No Edema, No Gallop, No JVD, No Murmur Gastrointestinal: Normal Bowel Sounds, No Organomegaly, No Pulsatile Mass, Soft, Tenderness (Epigastric tenderness.) Back: Normal Inspection, No CVA Tenderness, No Vertebral Tenderness Extremity: Normal Capillary Refill, Normal Inspection, Normal Range of Motion, Non Tender, No Calf Tenderness Neurologic/Psychiatric: Alert, Oriented x3, No Motor/Sensory Deficits, Normal Mood/Affect, 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 nursing 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 II-XII Norm as Tested Skin: Normal Color, Warm/Dry Progress/Results/Core Measures Suspected Sepsis SIRS Temperature: Pulse: 99 Respiratory Rate: 20 Laboratory Tests 01/05/22 20:34: White Blood Count 9.5 Blood Pressure 176 /85 Mean: 115 Laboratory Tests 01/05/22 20:34: Creatinine 0.92, Platelet Count 272, Total Bilirubin 0.4 Results/Orders Lab Results Laboratory Tests Test 01/05/22 20:27 01/05/22 20:34 01/05/22 21:51 Range/Units Influenza Type A (RT-PCR) Not Detected Not Detecte Influenza Type B (RT-PCR) Not Detected Not Detecte SARS-CoV-2 RNA (RT-PCR) Not Detected Not Detecte White Blood Count 9.5 4.3-11.0 10^3/uL Red Blood Count 4.62 3.80-5.11 10^6/uL Hemoglobin 12.4 11.5-16.0 g/dL Hematocrit 38 35-52 % Mean Corpuscular Volume 83 80-99 fL Mean Corpuscular Hemoglobin 27 25-34 pg Mean Corpuscular Hemoglobin Concent 32 32-36 g/dL Red Cell Distribution Width 13.8 10.0-14.5 % Platelet Count 272 130-400 10^3/uL Mean Platelet Volume 9.2 9.0-12.2 fL Immature Granulocyte % (Auto) 0 % Neutrophils (%) (Auto) 59 42-75 % Lymphocytes (%) (Auto) 32 12-44 % Monocytes (%) (Auto) 5 0-12 % Eosinophils (%) (Auto) 4 0-10 % Basophils (%) (Auto) 0 0-10 % Neutrophils # (Auto) 5.6 1.8-7.8 10^3/uL Lymphocytes # (Auto) 3.1 1.0-4.0 10^3/uL Monocytes # (Auto) 0.4 0.0-1.0 10^3/uL Eosinophils # (Auto) 0.3 0.0-0.3 10^3/uL Basophils # (Auto) 0.0 0.0-0.1 10^3/uL Immature Granulocyte # (Auto) 0.0 0.0-0.1 10^3/uL Sodium Level 143 135-145 MMOL/L Potassium Level 3.9 3.6-5.0 MMOL/L Chloride Level 105 98-107 MMOL/L Carbon Dioxide Level 22 21-32 MMOL/L Anion Gap 16 H 5-14 MMOL/L Blood Urea Nitrogen 15 7-18 MG/DL Creatinine 0.92 0.60-1.30 MG/DL Estimat Glomerular Filtration Rate 82 BUN/Creatinine Ratio 16 Glucose Level 98 70-105 MG/DL Calcium Level 9.9 8.5-10.1 MG/DL Corrected Calcium 9.6 8.5-10.1 MG/DL Total Bilirubin 0.4 0.1-1.0 MG/DL Aspartate Amino Transf (AST/SGOT) 55 H 5-34 U/L Alanine Aminotransferase (ALT/SGPT) 55 0-55 U/L Alkaline Phosphatase 78 40-136 U/L Total Protein 7.7 6.4-8.2 GM/DL Albumin 4.4 3.2-4.5 GM/DL Lipase 124 H 8-78 U/L Urine Color YELLOW Urine Clarity CLEAR Urine pH 5.0 5-9 Urine Specific [place] >=1.030 1.016-1.022 Urine Protein NEGATIVE NEGATIVE Urine Glucose (UA) NEGATIVE NEGATIVE Urine Ketones NEGATIVE NEGATIVE Urine Nitrite NEGATIVE NEGATIVE Urine Bilirubin NEGATIVE NEGATIVE Urine Urobilinogen 0.2 < = 1.0 MG/DL Urine Leukocyte Esterase NEGATIVE NEGATIVE Urine RBC (Auto) NEGATIVE NEGATIVE Urine RBC RARE /HPF Urine WBC 0-2 /HPF Urine Squamous Epithelial Cells 2-5 /HPF Urine Crystals NONE /LPF Urine Calcium Oxalate Crystals LARGE H /LPF Urine Bacteria FEW H /HPF Urine Casts NONE /LPF Urine Mucus NEGATIVE /LPF Urine Culture Indicated YES My Orders Orders - LYSSA MORALES Cbc With Automated Diff (01/05/22 20:10) Comprehensive Metabolic Panel (01/05/22 20:10) Lipase (01/05/22 20:10) Covid 19 Inhouse Test (01/05/22 20:10) Influenza A And B By Pcr (01/05/22 20:10) Ns Iv 1000 Ml (Sodium Chloride 0.9%) (01/05/22 20:10) Ondansetron Injection (Zofran Injectio (01/05/22 20:15) Urinalysis (01/05/22 20:10) Urine Culture (01/05/22 21:51) Medications Given in ED Current Medications Medications Dose Ordered Sig/Neal Route Start Time Stop Time Status Last Admin Dose Admin Ondansetron HCl 4 mg ONCE ONCE IVP 01/05/22 20:15 01/05/22 20:16 DC 01/05/22 20:35 4 MG Vital Signs/I&O 01/05/22 01/05/22 20:00 21:56 Temp 36.8 36.5 Pulse 99 78 Resp 20 16 B/P (MAP) 176/85 (115) 165/87 Pulse Ox 98 99 O2 Delivery Room Air Room Air Capillary Refill : Less Than 3 Seconds Blood Pressure Mean: 115 Departure Communication (PCP) Patient with fatigue and weakness over the past week. Patient was given Zofran for her nausea. History of chronic upper abdominal pain with nausea and vomiting. History of pancreatitis. She had a slight elevated lipase 125. Appears to be more chronic. She was afebrile with stable vital signs. PatientwWas given a liter of fluid. Urinalysis negative for infection. Lab work was otherwise unremarkable with normal white blood count, liver function, kidney function. Patient states she is feeling much better after fluid and zofran. COVID and influenza negative. History of chronic nausea and vomiting, pancreatitis. No surgical abdomen. No peritoneal signs. No chest pain, shortness of breath or cough. She does have antiemetics at home. Recommend outpatient follow-up. If any worsening symptoms return back to ED for further evaluation Impression Primary Impression: Nausea and vomiting Additional Impression: Fatigue Disposition: HOME, SELF-CARE Condition: Stable Departure-Patient Inst. Decision time for Depature: 21:53 Referrals: CARMEN GIBBS MD (PCP/Family) Primary Care Physician Patient Instructions: Fatigue Add. Discharge Instructions: Continue with oral hydration. Continue with your nausea medication at home. Outpatient follow-up with your primary care physician for further evaluation. If any worsening symptoms return back to ED for further evaluation All discharge instructions reviewed with patient and/or family. Voiced understanding. LYSSA MORALES Jan 05, 2022 20:14
[2022-01-05] MEDS ORDERED: ONDANSETRON 4 MG/2 ML (SDV) Z0FRAN IVP ONE (20:15)
[2022-01-05 20:47] LABS: BASOPHILS % (AUTO) 0 % (0-10); EOSINOPHILS # (AUTO) 0.3 10^3/uL (0.0-0.3); EOSINOPHILS % (AUTO) 4 % (0-10); HEMATOCRIT 38 % (35-52); HEMOGLOBIN 12.4 g/dL (11.5-16.0); LYMPHOCYTES # (AUTO) 3.1 10^3/uL (1.0-4.0); LYMPHOCYTES % (AUTO) 32 % (12-44); MEAN CORPUSCULAR HEMOGLOBIN 27 pg (25-34); MEAN CORPUSCULAR HGB CONC 32 g/dL (32-36); MEAN CORPUSCULAR VOLUME 83 fL (80-99); MEAN PLATELET VOLUME 9.2 fL (9.0-12.2); MONOCYTES # (AUTO) 0.4 10^3/uL (0.0-1.0); MONOCYTES % (AUTO) 5 % (0-12); NEUTROPHILS # (AUTO) 5.6 10^3/uL (1.8-7.8); NEUTROPHILS % (AUTO) 59 % (42-75); PLATELET COUNT 272 10^3/uL (130-400); WHITE BLOOD COUNT 9.5 10^3/uL (4.3-11.0)
[2022-01-05 21:05] LABS: ALBUMIN 4.4 GM/DL (3.2-4.5); BILIRUBIN,TOTAL 0.4 MG/DL (0.1-1.0); CALCIUM 9.9 MG/DL (8.5-10.1); CREATININE SERUM 0.92 MG/DL (0.60-1.30); POTASSIUM 3.9 MMOL/L (3.6-5.0); TOTAL PROTEIN 7.7 GM/DL (6.4-8.2)
[2022-01-05 21:56] VITALS: BP 165/87
[2022-01-05 21:59] LABS: BILIRUBIN,URINE NEGATIVE (NEGATIVE); CLARITY,URINE CLEAR; COLOR,URINE YELLOW; GLUCOSE, URINE (UA) NEGATIVE (NEGATIVE); KETONES,URINE NEGATIVE (NEGATIVE); LEUKOCYTE ESTERASE ,URINE NEGATIVE (NEGATIVE); NITRITE,URINE NEGATIVE (NEGATIVE); PROTEIN,URINE NEGATIVE (NEGATIVE)
[2022-01-05 22:11] LABS: CALCIUM OXALATE CRYSTALS,UR LARGE /LPF
[2022-01-05 22:14] LABS: RBC,URINE RARE /HPF; WBC,URINE 0-2 /HPF
[2022-01-05 22:15] LABS: BACTERIA,URINE FEW /HPF
== END 2022-01-05 21:57 | disposition home or self-care (01) ==
LOC: EDUNIT# 19:46 → ER 19:47
DX: R11.2 Nausea with vomiting, unspecified (principal); R53.83 Other fatigue; R74.8 Abnormal levels of other serum enzymes; E66.9 Obesity, unspecified; Z68.42 Body mass index [BMI] 45.0-49.9, adult; Z72.0 Tobacco use; Z20.822 Contact with and (suspected) exposure to COVID-19
CPT/HCPCS: 36415; 80053; 81000; 83690; 85025; 87088; 87636

== ENCOUNTER 2022-01-10 10:17 | Emergency (ER) | payer MEDICARE, MEDICAID ==
[~2022-01-10] VITALS: Ht 160 cm; Wt 117.0 kg
[2022-01-10 11:10] VITALS: BP 196/110
[2022-01-10 11:31] LABS: BILIRUBIN,URINE NEGATIVE (NEGATIVE); CLARITY,URINE SL CLOUDY; COLOR,URINE YELLOW; GLUCOSE, URINE (UA) NEGATIVE (NEGATIVE); KETONES,URINE NEGATIVE (NEGATIVE); LEUKOCYTE ESTERASE ,URINE TRACE (NEGATIVE); NITRITE,URINE NEGATIVE (NEGATIVE); PROTEIN,URINE NEGATIVE (NEGATIVE)
[2022-01-10 11:41] LABS: AMORPHOUS SEDIMENT,UR FEW AMOR URATES /LPF; BACTERIA,URINE FEW /HPF; RBC,URINE RARE /HPF
[2022-01-10] MEDS ORDERED: NS IV 1000 ML 1,000 ML IV STA (11:56)
[2022-01-10] MEDS ORDERED: ONDANSETRON 4 MG/2 ML (SDV) Z0FRAN IVP ONE (12:00)
--- NOTE | 2022-01-10 12:01 | ED Back Pain ---
General Chief Complaint: Back Problems Stated Complaint: LOWER BACK PAIN, Nursing Triage Note: ARRIVED VIA AMB TO FT 2 WITH COMPLAINTS OF RIGHT LOWER BACK PAIN STARTING LAST NIGHT. Source of Information: Patient Exam Limitations: No Limitations History of Present Illness Date Seen by Provider: Jan 10, 2022 Time Seen by Provider: 11:59 Initial Comments Patient is a 36-year-old female with a history of chronic pancreatitis who presents ED with right lower quadrant pain that radiates into the right lower quadrant. Described as a dull pain constant with intermittent sharp pain. Denies of any trauma. She has had intermittent vomiting over the past several months. Out of her Phenergan, Reglan and Zofran. She is scheduled to follow-up with GI on January 16. Currently on antibiotic for sinus infection. She reports some mild pain with urination. Denies of any vaginal bleeding, vaginal discharge. Denies any current alcohol use. She states nausea improved today. She states she feels dehydrated. She was seen here 5 days ago was given a liter of fluid for nausea and vomiting with improvement. She denies fever, chills, body aches, generalized weakness, decreased urine output, mucousy or bloody stool, hematemesis, chest pain, shortness of breath, cough, diarrhea. Allergies and Home Medications Allergies Coded Allergies: fentanyl (Verified Allergy, Unknown, 10/16/18) meperidine (Verified Allergy, Unknown, 10/16/18) penicillin G (Verified Allergy, Unknown, 10/16/18) prochlorperazine (Verified Allergy, Unknown, 03/15/21) trimethobenzamide (Unverified Allergy, Unknown, 09/05/20) vancomycin (Verified Adverse Reaction, Intermediate, severe itching, 10/26/19) Patient Home Medication List Home Medication List Reviewed: Yes Acetaminophen (Tylenol Extra Strength) 500 Mg Tablet, 1,000 MG PO Q8H PRN for PAIN-MILD (1-4), (Reported) Entered as Reported by: EMILIO SHEPPARD on 10/26/19 0812 Acetaminophen with Codeine (Acetaminop-Codein 240-24 mg/10) 10 Ml Solution, 10 ML PO Q6H PRN for cough Prescribed by: GEO BORJA on 09/29/212037 Albuterol Sulfate (Albuterol Sulfate) 2.5 Mg/0.5 Ml Vial.neb, 2.5 MG INH Q4H, (Reported) Entered as Reported by: GRIFFIN ORTEGA on 07/24/21 1145 Atorvastatin Calcium (Atorvastatin Calcium) 20 Mg Tablet, 20 MG PO HS, (Reported) Entered as Reported by: LEX HOSKINS on 12/07/20 0916 Benzonatate (Tessalon Perles) 100 Mg Capsule, 100 MG PO DAILY, (Reported) Entered as Reported by: GRIFFIN ORTEGA on 07/24/21 1145 Cyanocobalamin (Cyanocobalamin Injection) 1,000 Mcg/Ml Inj, 1,000 MCG IM MONTHLY, (Reported) Entered as Reported by: GRIFFIN ORTEGA on 07/24/21 1145 Cyclobenzaprine HCl (Cyclobenzaprine HCl) 10 Mg Tablet, 10 MG PO Q8H PRN for SPASMS Prescribed by: MAKAYLA HAWKINS on 02/28/21 0942 Dextromethorphan Polistirex (Delsym) 30 Mg/5 Ml Petty.er.12h, 10 ML PO BID, (Reported) Entered as Reported by: RGIFFIN ORTEGA on 07/24/21 1145 Diphenhydramine HCl (Benadryl) 25 Mg Capsule, 25 MG PO HS PRN for SLEEP, (Reported) Entered as Reported by: EMILIO SHEPPARD on 10/26/19 0812 Doxycycline Hyclate (Doxycycline Hyclate) 100 Mg Tablet, 100 MG PO BID, (Reported) Entered as Reported by: GRIFFIN ORTEGA on 07/24/21 1139 Estradiol (Estrace Tablet) 1 Mg Tablet, 1 MG PO DAILY, (Reported) Entered as Reported by: GRIFFIN ORTEGA on 07/24/21 1145 Famotidine (Pepcid) 20 Mg Tablet, 20 MG PO BID Prescribed by: IZABELA MAC on 09/28/21 1539 Gabapentin (Neurontin) 300 Mg Capsule, 300 MG PO TID PRN for PAIN-MODERATE (5-7) Prescribed by: IZABELA MAC on 10/11/21 1552 Glyburide (Glyburide) 2.5 Mg Tablet, 2.5 MG PO DAILY, (Reported) Entered as Reported by: GRIFFIN ORTEGA on 07/24/21 1145 Hydrocodone/Acetaminophen (Hydrocodone-Acetamin 5-325 mg) 1 Each Tablet, 2 EACH PO Q6H PRN for PAIN-MILD (1-4), (Reported) Entered as Reported by: EMILIO SHEPPARD on 10/26/19 0812 Hydrocodone/Acetaminophen (Hydrocodone-Acetamin 5-325 mg) 5 Mg-325 Mg Tablet, 1 TAB PO Q4H PRN for PAIN-MODERATE (5-7) Prescribed by: ULI GARNER on 01/10/22 1334 Metoclopramide HCl (Reglan) 5 Mg Tablet, 5 MG PO Q6H PRN for NAUSEA/VOMITING-3RD LINE Prescribed by: IZABELA MAC on 03/13/21 1301 Ondansetron (Ondansetron Odt) 8 Mg Tab.rapdis, 8 MG PO Q8H PRN for NAUSEA/VOMITI NG, (Reported) Entered as Reported by: EMILIO SHEPPARD on 10/26/19 0812 Ondansetron (Ondansetron Odt) 4 Mg Tab.rapdis, 4 MG PO Q4H Prescribed by: ULI GARNER on 01/10/22 1334 Promethazine HCl (Promethazine Tablet) 25 Mg Tablet, 25 MG PO Q6H PRN for NAUSEA/VOMITING, (Reported) Entered as Reported by: LEX HOSKINS on 12/07/20 0916 Promethazine HCl (Promethazine Tablet) 25 Mg Tablet, 25 MG PO Q6H PRN for NAUSEA/VOMITING Prescribed by: ULI GARNER on 01/10/22 1334 Ropinirole HCl (Ropinirole HCl) 4 Mg Tablet, 4 MG PO HS, (Reported) Entered as Reported by: LEX HOSKINS on 06/28/17 1010 Sertraline HCl (Sertraline HCl) 100 Mg Tablet, 100 MG PO HS, (Reported) Entered as Reported by: LEX HOSKINS on 12/07/20 0912 Sitagliptin Phos/Metformin HCl (Janumet Xr 50-1,000 mg Tablet) 1 Each Tbmp.24hr, 2 TAB-CAP PO DAILY@1900, (Reported) Entered as Reported by: LEX HOSKINS on 12/07/20 0916 Review of Systems Constitutional: No chills, No diaphoresis; weakness EENTM: No blurred vision, No double vision Respiratory: No cough, No short of breath Cardiovascular: No chest pain Gastrointestinal: abdominal pain; No constipation, No diarrhea; nausea, vomiting Genitourinary: No decreased output, No discharge Musculoskeletal: No back pain, No joint pain All Other Systems Reviewed Negative Unless Noted: Yes Past Vjetjrw-Whaypp-Ntowxg Hx Patient Social History Tobacco Use?: No Substance use?: No Immunizations Up To Date Tetanus Booster (TDap): Less than 5yrs PED Vaccines UTD: No First/Initial COVID19 Vaccinat: AUGUST 2021 Second COVID19 Vaccination Alvaro: UNKNOWN DATE Third COVID19 Vaccination Date: AUGUST 2021 COVID19 Vaccine Floor Inspector: SYLLETA Seasonal Allergies Seasonal Allergies: No Past Medical History Surgery/Hospitalization HX: several surgeries including 1 kidney removal, appendectomy, cammie., and power port placement, POWER PORT REMOVAL, HYSTERECTOMY Surgeries: Yes (hernia repair x2, knee scopes, port placement) Adenoidectomy, Appendectomy, Gallbladder, Hysterectomy, Nephrectomy, Orthopedic, Tonsillectomy Respiratory: Yes Asthma Currently Using CPAP: No Currently Using BIPAP: No Cardiac: Yes Hypertension Neurological: Yes Headaches /Migraines Reproductive Disorders: Yes (HX ENDOMETRIOSIS ) 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: 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 [employer] 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[employer]IC History: Hysterectomy Sexually Transmitted Disease: No HIV/AIDS: No Genitourinary: Yes (S/P LEFT NEPHRECTOMY) UTI-Chronic Gastrointestinal: Yes (CHRONIC ABD PAIN/N/V./D) Abdominal Hernia, Gastroesophageal Reflux, Liver Disease/Jaundice, Obstructive Bowel, Pancreatitis, Chronic Diarrhea, Polyps Musculoskeletal: Yes (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) Chronic Back Pain Endocrine: Yes (OBESITY) Diabetes, Non-Insulin dep HEENT: No Loss of Vision: Denies Hearing Impairment: Denies Cancer: Yes Kidney Did You Recieve Any Treatments: Yes What Type of Treatment Did You: Surgical Intervention Psychosocial: Yes Anxiety, Depression Integumentary: No Herpes Blood Disorders: No Adverse Reaction/Blood Tranf: No (N/A) Family Medical History Cardiovascular disease 19 FATHER Completed stroke 19 FATHER Diabetes mellitus 19 FATHER Hypercholesterolemia 19 FATHER 19 MOTHER Hypertension 19 FATHER 19 MOTHER Neoplasm 19 MOTHER Psychosocial problem 19 FATHER 19 MOTHER No Pertinent Family Hx, Cancer, Diabetes, Hypertension PSH: -RIGHT KNEE SCOPE X 5 -LEFT KNEE SCOPE X 2 -TONSILLECTOMY / ADENOIDECTOMY -APPENDECTOMY -CHOLECYSTECTOMY -NASAL FRACTURE REPAIR -COCCYX REMOVAL -LEFT NEPHRECTOMY FOR MALIGNANCY -LEFT MID ABDOMEN INCISIONAL HERNIA REPAIR -DRAINAGE OF ABDOMINAL WALL ABSCESS -MULTIPLE EGD'S AND COLONOSCOPIES--LAST ONE DONE HERE 10/26/19 -HYSTERECTOMY / BILATERAL SALPINGO-OOPHORECTOMY 2007 -06/23/20--RIGHT CHEST WALL/SHOULDER INJECTION FOR THORACIC OUTLET SYNDROME--DONE IN -PORT REMOVED FROM LEFT CHEST 07/24/21 FOR NON-FUNCTIONING PORT-BY DR. MARROQUIN Physical Exam Vital Signs Vital Signs - First Documented 01/10/22 11:10 Temp 36.3 Pulse 99 Resp 16 B/P (MAP) 196/110 (138) Pulse Ox 97 O2 Delivery Room Air Capillary Refill : Less Than 3 Seconds Height, Weight, BMI Height: 5'3.00" Weight: 246lbs. 0oz. [id number]; 45.00 BMI Method:Stated General Appearance: No Apparent Distress, WD/WN HEENT: PERRL/EOMI, TMs Normal, Normal ENT Inspection, Pharynx Normal Neck: Full Range of Motion, Normal Inspection, Non Tender, Supple Cardiovascular: Regular Rate, Rhythm, No Edema, No Gallop, No JVD, No Murmur Respiratory: Chest Non Tender, Lungs Clear, Normal Breath Sounds, No Accessory Muscle Use, No Respiratory Distress Gastrointestinal: Normal Bowel Sounds, No Organomegaly, No Pulsatile Mass, Soft, Tenderness (Right sided lower abdominal tenderness. No rebound or guarding) Back: CVA Tenderness (R) Extremity: Normal Capillary Refill, Normal Inspection, Normal Range of Motion, Non Tender Neurologic/Psychiatric: Alert, Oriented x3, No Motor/Sensory Deficits, Normal M ood/Affect, sweep molder II-XII Norm as Tested Skin: Normal Color Progress/Results/Core Measures Results/Orders Lab Results Laboratory Tests Test 01/10/22 11:22 01/10/22 12:31 Range/Units Urine Color YELLOW Urine Clarity SL CLOUDY Urine pH 6.0 5-9 Urine Specific [place] >=1.030 1.016-1.022 Urine Protein NEGATIVE NEGATIVE Urine Glucose (UA) NEGATIVE NEGATIVE Urine Ketones NEGATIVE NEGATIVE Urine Nitrite NEGATIVE NEGATIVE Urine Bilirubin NEGATIVE NEGATIVE Urine Urobilinogen 0.2 < = 1.0 MG/DL Urine Leukocyte Esterase TRACE H NEGATIVE Urine RBC (Auto) NEGATIVE NEGATIVE Urine RBC RARE /HPF Urine WBC 2-5 /HPF Urine Squamous Epithelial Cells 5-10 /HPF Urine Crystals PRESENT H /LPF Urine Amorphous Sediment FEW HAMMAD URATES H /LPF Urine Bacteria FEW H /HPF Urine Casts NONE /LPF Urine Mucus SMALL H /LPF Urine Culture Indicated YES White Blood Count 7.5 4.3-11.0 10^3/uL Red Blood Count 4.43 3.80-5.11 10^6/uL Hemoglobin 12.0 11.5-16.0 g/dL Hematocrit 38 35-52 % Mean Corpuscular Volume 87 80-99 fL Mean Corpuscular Hemoglobin 27 25-34 pg Mean Corpuscular Hemoglobin Concent 31 L 32-36 g/dL Red Cell Distribution Width 13.8 10.0-14.5 % Platelet Count 262 130-400 10^3/uL Mean Platelet Volume 9.2 9.0-12.2 fL Immature Granulocyte % (Auto) 0 % Neutrophils (%) (Auto) 51 42-75 % Lymphocytes (%) (Auto) 39 12-44 % Monocytes (%) (Auto) 5 0-12 % Eosinophils (%) (Auto) 4 0-10 % Basophils (%) (Auto) 1 0-10 % Neutrophils # (Auto) 3.8 1.8-7.8 10^3/uL Lymphocytes # (Auto) 3.0 1.0-4.0 10^3/uL Monocytes # (Auto) 0.4 0.0-1.0 10^3/uL Eosinophils # (Auto) 0.3 0.0-0.3 10^3/uL Basophils # (Auto) 0.0 0.0-0.1 10^3/uL Immature Granulocyte # (Auto) 0.0 0.0-0.1 10^3/uL Sodium Level 140 135-145 MMOL/L Potassium Level 4.0 3.6-5.0 MMOL/L Chloride Level 105 98-107 MMOL/L Carbon Dioxide Level 23 21-32 MMOL/L Anion Gap 12 5-14 MMOL/L Blood Urea Nitrogen 15 7-18 MG/DL Creatinine 0.83 0.60-1.30 MG/DL Estimat Glomerular Filtration Rate 93 BUN/Creatinine Ratio 18 Glucose Level 101 70-105 MG/DL Calcium Level 9.6 8.5-10.1 MG/DL Corrected Calcium 9.4 8.5-10.1 MG/DL Total Bilirubin 0.6 0.1-1.0 MG/DL Aspartate Amino Transf (AST/SGOT) 43 H 5-34 U/L Alanine Aminotransferase (ALT/SGPT) 42 0-55 U/L Alkaline Phosphatase 71 40-136 U/L Total Protein 7.6 6.4-8.2 GM/DL Albumin 4.3 3.2-4.5 GM/DL Lipase 64 8-78 U/L My Orders Orders - LYSSA MORALES Urinalysis (01/10/22 11:20) Urine Culture (01/10/22 11:22) Iv/Invasive Line Insertion .IV start (01/10/22 11:56) Ns Iv 1000 Ml (Sodium Chloride 0.9%) (01/10/22 11:56) Cbc With Automated Diff (01/10/22 11:56) Comprehensive Metabolic Panel (01/10/22 11:56) Lipase (01/10/22 11:56) Abdomen/Kub 1view (01/10/22 11:56) Ondansetron Injection (Zofran Injectio (01/10/22 12:00) Medications Given in ED Current Medications Medications Dose Ordered Sig/Neal Route Start Time Stop Time Status Last Admin Dose Admin Ondansetron HCl 4 mg ONCE ONCE IVP 01/10/22 12:00 01/10/22 12:01 DC 01/10/22 12:27 4 MG Vital Signs/I&O 01/10/22 11:10 Temp 36.3 Pulse 99 Resp 16 B/P (MAP) 196/110 (138) Pulse Ox 97 O2 Delivery Room Air Blood Pressure Mean: 138 Departure Communication (PCP) Patient with a chronic history of nausea vomiting. Intermittent nausea and vomiting. Better today. No current upper abdominal pain. Complaint of right flank pain with ration right lower quadrant. No surgical abdomen. Urinalysis without strong evidence of UTI. Lab work was otherwise unremarkable reassuring. Was given a liter of fluid and Zofran. Patient is currently on an antibiotic that she cannot recall for sinus infection. Discussed waiting for cultures of the urinalysis before potential treating as she does have some mild urinary symptoms. History of hysterectomy. No vaginal discharge. Pain improved with Toradol. Recommend outpatient follow-up. Will discharge with her nausea medication as she is requesting refill. She scheduled follow-up GI on January 16. Patient symptoms have improved. Abdominal x-ray was negative for nephrolithiasis or bowel obstruction. No surgical abdomen at this time after reassessment Impression Primary Impression: Flank pain Disposition: HOME, SELF-CARE Condition: Stable Departure-Patient Inst. Decision time for Depature: 13:17 Referrals: CARMEN GIBBS MD (PCP/Family) Primary Care Physician Patient Instructions: Flank Pain (DC) Scripts Promethazine HCl (Promethazine Tablet) 25 Mg Tablet 25 MG PO Q6H PRN for NAUSEA/VOMITING, #20 TAB Prov: LYSSA MORALES 01/10/22 Hydrocodone/Acetaminophen (Hydrocodone-Acetamin 5-325 mg) 5 Mg-325 Mg Tablet 1 TAB PO Q4H PRN for PAIN-MODERATE (5-7), #6 TAB Prov: LYSSA MORALES 01/10/22 Ondansetron (Ondansetron Odt) 4 Mg Tab.rapdis 4 MG PO Q4H, #8 TAB Prov: LYSSA MORALES 01/10/22 LYSSA MORALES Jan 10, 2022 12:01
[2022-01-10 12:35] LABS: BASOPHILS % (AUTO) 1 % (0-10); EOSINOPHILS # (AUTO) 0.3 10^3/uL (0.0-0.3); EOSINOPHILS % (AUTO) 4 % (0-10); HEMATOCRIT 38 % (35-52); LYMPHOCYTES % (AUTO) 39 % (12-44); MEAN CORPUSCULAR HEMOGLOBIN 27 pg (25-34); MEAN CORPUSCULAR HGB CONC 31 g/dL (32-36); MEAN CORPUSCULAR VOLUME 87 fL (80-99); MEAN PLATELET VOLUME 9.2 fL (9.0-12.2); MONOCYTES # (AUTO) 0.4 10^3/uL (0.0-1.0); MONOCYTES % (AUTO) 5 % (0-12); NEUTROPHILS # (AUTO) 3.8 10^3/uL (1.8-7.8); NEUTROPHILS % (AUTO) 51 % (42-75); PLATELET COUNT 262 10^3/uL (130-400); WHITE BLOOD COUNT 7.5 10^3/uL (4.3-11.0)
--- NOTE | 2022-01-10 12:40 | Diagnostic Imaging Report ---
INDICATION: Right-sided abdominal/flank pain. TECHNIQUE: Two supine views of the abdomen at 12:19 p.m. CORRELATION STUDY: 05/15/2021. FINDINGS: Presumably cholecystectomy clips in the right upper quadrant of the abdomen. There is [id number] stool through the colon. No large fecal impaction. A few gas and stool-filled loops of small bowel are suggested. No underlying obstructive feature. Clips in the right lower quadrant could be perhaps owing to prior appendectomy. IMPRESSION: 1. Nonobstructed-appearing bowel gas pattern. Mild stool retention. Dictated by: Dictated on workstation # [id number]
[2022-01-10 12:45] LABS: ALBUMIN 4.3 GM/DL (3.2-4.5)
[2022-01-10 12:46] LABS: CALCIUM 9.6 MG/DL (8.5-10.1)
[2022-01-10 12:47] LABS: TOTAL PROTEIN 7.6 GM/DL (6.4-8.2)
[2022-01-10 12:49] LABS: BILIRUBIN,TOTAL 0.6 MG/DL (0.1-1.0)
[2022-01-10 12:51] LABS: CREATININE SERUM 0.83 MG/DL (0.60-1.30)
[2022-01-10] MEDS ORDERED: ACHD5005 PO (13:34)
[2022-01-10] MEDS ORDERED: ONDA4TAB11 PO (13:34)
[2022-01-10] MEDS ORDERED: PROM25TA14 PO (13:34)
== END 2022-01-10 13:35 | disposition home or self-care (01) ==
LOC: EDUNIT# 10:17 → ER 10:19
DX: R10.31 Right lower quadrant pain (principal); R11.2 Nausea with vomiting, unspecified; E66.9 Obesity, unspecified; Z68.42 Body mass index [BMI] 45.0-49.9, adult; Z79.2 Long term (current) use of antibiotics; Z90.5 Acquired absence of kidney; Z90.49 Acquired absence of other specified parts of digestive tract; Z85.528 Personal history of other malignant neoplasm of kidney; Z90.710 Acquired absence of both cervix and uterus; Z88.0 Allergy status to penicillin; Z88.1 Allergy status to other antibiotic agents; Z79.899 Other long term (current) drug therapy
CPT/HCPCS: 36415; 74018; 80053; 81000; 83690; 85025; 87088

== ENCOUNTER 2022-01-24 14:35 | Emergency (ER) | payer MEDICARE, MEDICAID ==
[~2022-01-24] VITALS: Ht 160 cm; Wt 120.0 kg
[2022-01-24 14:43] VITALS: BP 126/76
[2022-01-24] MEDS ORDERED: SEMA0.25 SQ (14:52)
[2022-01-24] MEDS ORDERED: NS IV 1000 ML 1,000 ML IV STA (14:57)
[2022-01-24] MEDS ORDERED: morphine INJ 10 MG/ML 1ML (SYR OR VIAL) IVP ONE (15:00)
[2022-01-24] MEDS ORDERED: ONDANSETRON 4 MG/2 ML (SDV) Z0FRAN IVP ONE (15:00)
--- NOTE | 2022-01-24 15:04 | ED Abdominal Pain ---
General Chief Complaint: Abdominal/GI Problems Stated Complaint: N/V,ABD PAIN Nursing Triage Note: ABDOMINAL PAIN STARTED ON SATURDAY LAST WEEK. STATES HAS BEEN WORSENING SINCE SATURDAY AND NOW IS UNABLE TO KEEP ANY FOOD OR FLUID DOWN. STATES SHE FIRST WENT TO [facility] AND THEY SENT HER OUT HERE. LAST HYDROCODONE AT 0900 TODAY AND TYLENOL 1300. FINISHED A DOSE OF ANTIBIOTIC LEVAQUIN FOR A SINUS "DISEASE" FROM DR FERMIN. STATES HAS HAD HER PHENEGRAN AT 0900 Source of Information: Patient Exam Limitations: No Limitations History of Present Illness Date Seen by Provider: Jan 24, 2022 Time Seen by Provider: 15:01 Initial Comments Patient is a 36-year-old female who presents the ED for upper abdominal pain. Pain is described as sharp. Started last . This has progressed to gotten worse since Saturday. Initially was intermittent but now has been been constant. No radiation. She has not been able to eat since Saturday. She rep orts 4-5 episodes of vomiting daily described as greenish. No diarrhea. History of cholecystectomy and appendectomy and bowel obstruction. Denies of any chest pain, shortness of breath or cough. She took hydrocodone this morning around 9. Recently finished Levaquin for sinus disease. She states she has been taking her Phenergan at home. Denies history of GERD or gastritis. She denies fever, chills, body aches, headache Allergies and Home Medications Allergies Coded Allergies: fentanyl (Verified Allergy, Unknown, 01/24/22) meperidine (Verified Allergy, Unknown, 01/24/22) penicillin G (Verified Allergy, Unknown, 01/24/22) prochlorperazine (Verified Allergy, Unknown, 01/24/22) trimethobenzamide (Unverified Allergy, Unknown, 01/24/22) vancomycin (Verified Adverse Reaction, Intermediate, severe itching, 01/24/22) Patient Home Medication List Home Medication List Reviewed: Yes Acetaminophen (Tylenol Extra Strength) 500 Mg Tablet, 1,000 MG PO Q8H PRN for PAIN-MILD (1-4), (Reported) Entered as Reported by: EMILIO SHEPPARD on 10/26/19 0812 Acetaminophen with Codeine (Acetaminop-Codein 240-24 mg/10) 10 Ml Solution, 10 ML PO Q6H PRN for cough Prescribed by: GEO BORJA on 09/29/212037 Albuterol Sulfate (Albuterol Sulfate) 2.5 Mg/0.5 Ml Vial.neb, 2.5 MG INH Q4H, (Reported) Entered as Reported by: GRIFFIN ORTEGA on 07/24/21 114 Atorvastatin Calcium (Atorvastatin Calcium) 20 Mg Tablet, 20 MG PO HS, (Reported) Entered as Reported by: LEX HOSKINS on 12/07/20 0916 Benzonatate (Tessalon Perles) 100 Mg Capsule, 100 MG PO DAILY, (Reported) Entered as Reported by: GRIFFIN ORTEGA on 07/24/21 1145 Cyanocobalamin (Cyanocobalamin Injection) 1,000 Mcg/Ml Inj, 1,000 MCG IM MONTHLY, (Reported) Entered as Reported by: GRIFFIN ORTEGA on 07/24/21 1145 Cyclobenzaprine HCl (Cyclobenzaprine HCl) 10 Mg Tablet, 10 MG PO Q8H PRN for SPASMS Prescribed by: MAKAYLA HAWKINS on 02/28/21 0942 Dextromethorphan Polistirex (Delsym) 30 Mg/5 Ml Petty.er.12h, 10 ML PO BID, (Reported) Entered as Reported by: GRIFFIN ORTEGA on 07/24/21 1145 Diphenhydramine HCl (Benadryl) 25 Mg Capsule, 25 MG PO HS PRN for SLEEP, (Reported) Entered as Reported by: EMILIO SHEPPARD on 10/26/19 0812 Doxycycline Hyclate (Doxycycline Hyclate) 100 Mg Tablet, 100 MG PO BID, (Reported) Entered as Reported by: GRIFFIN ORTEGA on 07/24/21 1139 Estradiol (Estrace Tablet) 1 Mg Tablet, 1 MG PO DAILY, (Reported) Entered as Reported by: GRIFFIN ORTEGA on 07/24/21 1145 Famotidine (Pepcid) 20 Mg Tablet, 20 MG PO BID Prescribed by: IZABELA MAC on 09/28/21 1539 Gabapentin (Neurontin) 300 Mg Capsule, 300 MG PO TID PRN for PAIN-MODERATE (5-7) Prescribed by: IZABELA MAC on 10/11/21 1552 Glyburide (Glyburide) 2.5 Mg Tablet, 2.5 MG PO DAILY, (Reported) Entered as Reported by: GRIFFIN ORTEGA on 07/24/21 1145 Hydrocodone/Acetaminophen (Hydrocodone-Acetamin 5-325 mg) 1 Each Tablet, 2 EACH PO Q6H PRN for PAIN-MILD (1-4), (Reported) Entered as Reported by: EMILIO SHEPPARD on 10/26/19 0812 Hydrocodone/Acetaminophen (Hydrocodone-Acetamin 5-325 mg) 5 Mg-325 Mg Tablet, 1 TAB PO Q4H PRN for PAIN-MODERATE (5-7) Prescribed by: ULI GARNER on 01/10/22 1334 Metoclopramide HCl (Reglan) 5 Mg Tablet, 5 MG PO Q6H PRN for NAUSEA/VOMITING-3RD LINE Prescribed by: IZABELA MAC on 03/13/21 1301 Ondansetron (Ondansetron Odt) 8 Mg Tab.rapdis, 8 MG PO Q8H PRN for NAUSEA/VOMITING, (Reported) Entered as Reported by: EMILIO SHEPPARD on 10/26/19 0812 Ondansetron (Ondansetron Odt) 4 Mg Tab.rapdis, 4 MG PO Q4H Prescribed by: ULI GARNER on 01/10/22 1334 Promethazine HCl (Promethazine Tablet) 25 Mg Tablet, 25 MG PO Q6H PRN for NAUSEA/VOMITING, (Reported) Entered as Reported by: LEX HOSKINS on 12/07/20 0916 Promethazine HCl (Promethazine Tablet) 25 Mg Tablet, 25 MG PO Q6H PRN for NAUSEA /VOMITING Prescribed by: ULI GARNER on 01/10/22 1334 Ropinirole HCl (Ropinirole HCl) 4 Mg Tablet, 4 MG PO HS, (Reported) Entered as Reported by: LEX HOSKINS on 06/28/17 1010 Semaglutide (Ozempic) 0.25 Mg/0.2 Ml Pen.injctr, 0.5 SQ We, (Reported) Entered as Reported by: LIBBY SINGH on 01/24/22 1452 Last Action: New Order Sertraline HCl (Sertraline HCl) 100 Mg Tablet, 100 MG PO HS, (Reported) Entered as Reported by: LEX HOSKINS on 12/07/20 0912 Sitagliptin Phos/Metformin HCl (Janumet Xr 50-1,000 mg Tablet) 1 Each Tbmp.24hr, 2 TAB-CAP PO DAILY@1900, (Reported) Entered as Reported by: LEX HOSKINS on 12/07/20 0916 Review of Systems Review of Systems Constitutional: No chills, No diaphoresis, No malaise, No weakness EENTM: No Blurred Vision, No Eye Pain Respiratory: Denies Cough, Denies Shortness of Air, Denies SOA at Rest Cardiovascular: Denies Chest Pain Gastrointestinal: Abdominal Pain, Nausea, Vomiting Genitourinary: Denies Burning Musculoskeletal: No back pain, No joint pain Skin: No change in color, No change in hair/nails Psychiatric/Neurological: Denies Anxiety, Denies Depressed All Other Systems Reviewed Negative Unless Noted: Yes Past [id number]-[id number] Hx Patient Social History Tobacco Use?: No Use of E-Cig and/or Vaping dev: No Substance use?: No Alcohol Use?: No Pt feels they are or have been: No Immunizations Up To Date Tetanus Booster (TDap): Less than 5yrs PED Vaccines UTD: No First/Initial COVID19 Vaccinat: UNKNOWN DATE Second COVID19 Vaccination Alvaro: UNKNOWN DATE Third COVID19 Vaccination Date: UNKNOWN DATE Seasonal Allergies Seasonal Allergies: No Past Medical History Surgery/Hospitalization HX: several surgeries including 1 kidney removal, appendectomy, cammie., and power port placement, POWER PORT REMOVAL, HYSTERECTOMY Surgeries: Yes (hernia repair x2, knee scopes, port placement) Adenoidectomy, Appendectomy, Gallbladder, Hysterectomy, Nephrectomy, Orthopedic, Tonsillectomy Respiratory: Yes Asthma Currently Using CPAP: No Currently Using BIPAP: No Cardiac: Yes Hypertension Neurological: Yes Headaches /Migraines Reproductive Disorders: Yes (HX ENDOMETRIOSIS ) 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: 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 [employer] History: Hysterectomy Sexually Transmitted Disease: No HIV/AIDS: No Genitourinary: Yes (S/P LEFT NEPHRECTOMY) UTI-Chronic Gastrointestinal: Yes (CHRONIC ABD PAIN/N/V./D) Abdominal Hernia, Gastroesophageal Reflux, Liver Disease/Jaundice, Obstructive Bowel, Pancreatitis, Chronic Diarrhea, Polyps Musculoskeletal: Yes (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) Chronic Back Pain Endocrine: Yes (OBESITY) Diabetes, Non-Insulin dep HEENT: No Loss of Vision: Denies Hearing Impairment: Denies Cancer: Yes Kidney Did You Recieve Any Treatments: Yes What Type of Treatment Did You: Surgical Intervention Psychosocial: Yes Anxiety, Depression Integumentary: No Herpes Blood Disorders: No Adverse Reaction/Blood Tranf: No (N/A) Family Medical History Cardiovascular disease 19 FATHER Completed stroke 19 FATHER Diabetes mellitus 19 FATHER Hypercholesterolemia 19 FATHER 19 MOTHER Hypertension 19 FATHER 19 MOTHER Neoplasm 19 MOTHER Psychosocial problem 19 FATHER 19 MOTHER No Pertinent Family Hx, Cancer, Diabetes, Hypertension PSH: -RIGHT KNEE SCOPE X 5 -LEFT KNEE SCOPE X 2 -TONSILLECTOMY / ADENOIDECTOMY -APPENDECTOMY -CHOLECYSTECTOMY -NASAL FRACTURE REPAIR -COCCYX REMOVAL -LEFT NEPHRECTOMY FOR MALIGNANCY -LEFT MID ABDOMEN INCISIONAL HERNIA REPAIR -DRAINAGE OF ABDOMINAL WALL ABSCESS -MULTIPLE EGD'S AND COLONOSCOPIES--LAST ONE DONE HERE 10/26/19 -HYSTERECTOMY / BILATERAL SALPINGO-OOPHORECTOMY 2007 -06/23/20--RIGHT CHEST WALL/SHOULDER INJECTION FOR THORACIC OUTLET SYNDROME--DONE IN -PORT REMOVED FROM LEFT CHEST 07/24/21 FOR NON-FUNCTIONING PORT-BY DR. MARROQUIN Physical Exam Vital Signs Vital Signs - First Documented 01/24/22 14:43 Pulse 100 Resp 18 B/P (MAP) 126/76 (93) Pulse Ox 97 Capillary Refill : Height/Weight/BMI Height: 5'3.00" Weight: 246lbs. 0oz. 111.535678mw; 46.00 BMI Method:Stated General Appearance: WD/WN, no apparent distress HEENT: PERRL/EOMI, normal ENT inspection, TMs normal, pharynx normal Neck: non-tender, full range of motion, supple, normal inspection Respiratory: chest non-tender, lungs clear, normal breath sounds, no respiratory distress, no accessory muscle use Cardiovascular: regular rate, rhythm, no JVD Gastrointestinal: normal bowel sounds, non tender, no organomegaly, no pulsatile mass Extremities: normal range of motion, non-tender, normal inspection, no pedal edema, no calf tenderness Back: normal inspection, no CVA tenderness Progress/Results/Core Measures Results/Orders Lab Results Laboratory Tests Test 01/24/22 15:15 Range/Units White Blood Count 9.6 4.3-11.0 10^3/uL Red Blood Count 4.71 3.80-5.11 10^6/uL Hemoglobin 12.6 11.5-16.0 g/dL Hematocrit 39 35-52 % Mean Corpuscular Volume 83 80-99 fL Mean Corpuscular Hemoglobin 27 25-34 pg Mean Corpuscular Hemoglobin Concent 32 32-36 g/dL Red Cell Distribution Width 13.4 10.0-14.5 % Platelet Count 265 130-400 10^3/uL Mean Platelet Volume 9.7 9.0-12.2 fL Immature Granulocyte % (Auto) 0 % Neutrophils (%) (Auto) 56 42-75 % Lymphocytes (%) (Auto) 37 12-44 % Monocytes (%) (Auto) 4 0-12 % Eosinophils (%) (Auto) 3 0-10 % Basophils (%) (Auto) 0 0-10 % Neutrophils # (Auto) 5.4 1.8-7.8 10^3/uL Lymphocytes # (Auto) 3.5 1.0-4.0 10^3/uL Monocytes # (Auto) 0.3 0.0-1.0 10^3/uL Eosinophils # (Auto) 0.3 0.0-0.3 10^3/uL Basophils # (Auto) 0.0 0.0-0.1 10^3/uL Immature Granulocyte # (Auto) 0.0 0.0-0.1 10^3/uL Sodium Level 142 135-145 MMOL/L Potassium Level 4.2 3.6-5.0 MMOL/L Chloride Level 108 H 98-107 MMOL/L Carbon Dioxide Level 21 21-32 MMOL/L Anion Gap 13 5-14 MMOL/L Blood Urea Nitrogen 14 7-18 MG/DL Creatinine 0.81 0.60-1.30 MG/DL Estimat Glomerular Filtration Rate 96 BUN/Creatinine Ratio 17 Glucose Level 86 70-105 MG/DL Calcium Level 9.9 8.5-10.1 MG/DL Corrected Calcium 9.7 8.5-10.1 MG/DL Total Bilirubin 0.6 0.1-1.0 MG/DL Aspartate Amino Transf (AST/SGOT) 36 H 5-34 U/L Alanine Aminotransferase (ALT/SGPT) 43 0-55 U/L Alkaline Phosphatase 85 40-136 U/L Troponin I < 0.028 <0.028 NG/ML Total Protein 7.5 6.4-8.2 GM/DL Albumin 4.3 3.2-4.5 GM/DL Lipase 49 8-78 U/L My Orders Orders - LYSSA MORALES Cbc With Automated Diff (01/24/22 14:57) Comprehensive Metabolic Panel (01/24/22 14:57) Lipase (01/24/22 14:57) Ns Iv 1000 Ml (Sodium Chloride 0.9%) (01/24/22 14:57) Ondansetron Injection (Zofran Injectio (01/24/22 15:00) Urinalysis (01/24/22 14:59) Troponin I Meagher (01/24/22 15:00) Ekg Tracing (01/24/22 15:00) Morphine Injection (Morphine Injection (01/24/22 15:00) Lidocaine 2% Viscous 15 Ml (Xylocaine Vi (01/24/22 17:00) Antacid Suspension (Mylanta Suspension (01/24/22 17:00) Pantoprazole Injection (Protonix Injecti (01/24/22 17:00) Medications Given in ED Current Medications Medications Dose Ordered Sig/Neal Route Start Time Stop Time Status Last Admin Dose Admin Morphine Sulfate 4 mg ONCE ONCE IVP 01/24/22 15:00 01/24/22 15:02 DC 01/24/22 15:17 4 MG Ondansetron HCl 4 mg ONCE ONCE IVP 01/24/22 15:00 01/24/22 15:01 DC 01/24/22 15:21 4 MG Vital Signs/I&O 01/24/22 14:43 Pulse 100 Resp 18 B/P (MAP) 126/76 (93) Pulse Ox 97 Blood Pressure Mean: 93 Departure Communication (PCP) Patient with a history of pancreatitis presents ED with similar type epigastric pain. Due to the location cardiac work-up was ordered which was unremarkable. Lung sounds clear bilateral. Denies cough or shortness of breath. Pain in her epigastric with similar type pain in the past. Lab work was otherwise unremark able. She was not able to provide urine sample. Patient was given a liter fluid and nausea medication. Tolerating p.o. fluids. Patient states she needed to go and I was not able to get a urine sample. Did offer GI cocktail. She was given dose of pain medication here without much improvement. She states she will follow-up with her GI specialist. If any worsening symptoms strongly recommend returning back to ED for further evaluation.. She states she is having bowel movements. She Does not appear toxic or septic. Does not appear to be a surgical abdomen. If any worsening symptoms return back to ED for further evaluation. Impression Primary Impression: Abdominal pain Disposition: HOME, SELF-CARE Condition: Stable Departure-Patient Inst. Decision time for Depature: 18:01 Referrals: CARMEN GIBBS MD (PCP/Family) Primary Care Physician Patient Instructions: Abdominal Pain, Adult ED LYSSA MORALES Jan 24, 2022 15:04
[2022-01-24 15:19] LABS: BASOPHILS % (AUTO) 0 % (0-10); EOSINOPHILS # (AUTO) 0.3 10^3/uL (0.0-0.3); EOSINOPHILS % (AUTO) 3 % (0-10); HEMATOCRIT 39 % (35-52); HEMOGLOBIN 12.6 g/dL (11.5-16.0); LYMPHOCYTES # (AUTO) 3.5 10^3/uL (1.0-4.0); LYMPHOCYTES % (AUTO) 37 % (12-44); MEAN CORPUSCULAR HEMOGLOBIN 27 pg (25-34); MEAN CORPUSCULAR HGB CONC 32 g/dL (32-36); MEAN CORPUSCULAR VOLUME 83 fL (80-99); MEAN PLATELET VOLUME 9.7 fL (9.0-12.2); MONOCYTES # (AUTO) 0.3 10^3/uL (0.0-1.0); MONOCYTES % (AUTO) 4 % (0-12); NEUTROPHILS # (AUTO) 5.4 10^3/uL (1.8-7.8); NEUTROPHILS % (AUTO) 56 % (42-75); PLATELET COUNT 265 10^3/uL (130-400); WHITE BLOOD COUNT 9.6 10^3/uL (4.3-11.0)
[2022-01-24 16:48] LABS: ALANINE AMINOTRANSFERASE 43 U/L (0-55); ALBUMIN 4.3 GM/DL (3.2-4.5); ALKALINE PHOSPHATASE 85 U/L (40-136); BILIRUBIN,TOTAL 0.6 MG/DL (0.1-1.0); BUN/CREATININE RATIO 17; CALCIUM 9.9 MG/DL (8.5-10.1); CARBON DIOXIDE 21 MMOL/L (21-32); CHLORIDE 108 MMOL/L (98-107); CREATININE SERUM 0.81 MG/DL (0.60-1.30); GFR ESTIMATED 96; GLUCOSE 86 MG/DL (70-105); LIPASE 49 U/L (8-78); POTASSIUM 4.2 MMOL/L (3.6-5.0); SODIUM 142 MMOL/L (135-145); TOTAL PROTEIN 7.5 GM/DL (6.4-8.2)
[2022-01-24] MEDS ORDERED: ANTACID SUSP 30 ML UDC (MYLANTA) PO ONE (17:00)
[2022-01-24] MEDS ORDERED: PANTOPRAZOLE 40 MG (PROTONIX) VIAL IV ONE (17:00)
[2022-01-24] MEDS ORDERED: LIDOCAINE 2% VISCOUS 15 ML UDC PO ONE (17:00)
== END 2022-01-24 18:17 | disposition home or self-care (01) ==
LOC: EDUNIT# 14:35 → ER 14:37
DX: R10.13 Epigastric pain (principal); R11.2 Nausea with vomiting, unspecified; E66.9 Obesity, unspecified; Z90.49 Acquired absence of other specified parts of digestive tract; Z68.42 Body mass index [BMI] 45.0-49.9, adult
CPT/HCPCS: 36415; 80053; 83690; 84484; 85025; 93005

== ENCOUNTER 2022-01-31 10:17 | Outpatient (RCR) | payer MEDICARE, MEDICAID ==
[~2022-01-31 10:17] MED LIST changes: +SEMA0.25 SQ
[2022-01-31 10:50] LABS: BASOPHILS % (AUTO) 0 % (0-10); EOSINOPHILS # (AUTO) 0.3 10^3/uL (0.0-0.3); EOSINOPHILS % (AUTO) 4 % (0-10); HEMATOCRIT 39 % (35-52); HEMOGLOBIN 12.7 g/dL (11.5-16.0); LYMPHOCYTES # (AUTO) 2.7 10^3/uL (1.0-4.0); LYMPHOCYTES % (AUTO) 36 % (12-44); MEAN CORPUSCULAR HEMOGLOBIN 27 pg (25-34); MEAN CORPUSCULAR HGB CONC 33 g/dL (32-36); MEAN CORPUSCULAR VOLUME 82 fL (80-99); MEAN PLATELET VOLUME 9.5 fL (9.0-12.2); MONOCYTES # (AUTO) 0.3 10^3/uL (0.0-1.0); MONOCYTES % (AUTO) 4 % (0-12); NEUTROPHILS # (AUTO) 4.1 10^3/uL (1.8-7.8); NEUTROPHILS % (AUTO) 56 % (42-75); PLATELET COUNT 259 10^3/uL (130-400); WHITE BLOOD COUNT 7.4 10^3/uL (4.3-11.0)
[2022-01-31 11:15] LABS: ALBUMIN 4.2 GM/DL (3.2-4.5); BILIRUBIN,TOTAL 0.4 MG/DL (0.1-1.0); CALCIUM 9.6 MG/DL (8.5-10.1); CREATININE SERUM 0.8 MG/DL (0.60-1.30); POTASSIUM 4.1 MMOL/L (3.6-5.0); TOTAL PROTEIN 7.4 GM/DL (6.4-8.2)
[2022-02-15] MEDS ORDERED: CYCL10TA25 PO (12:15)
[2022-02-15] MEDS ORDERED: ALBU18HF2 INH (12:15)
[2022-02-15] MEDS ORDERED: LIPA1CAP4 PO (12:15)
[2022-02-15] MEDS ORDERED: CETI10TA17 PO (12:15)
[2022-02-15] MEDS ORDERED: PREG75CA75 PO (12:15)
[2022-02-15] MEDS ORDERED: ATOR40TA70 PO (12:15)
[2022-02-15] MEDS ORDERED: ALBU2.5V4 PO (12:15)
[2022-02-15] MEDS ORDERED: MTC10T PO (12:15)
[2022-02-15] MEDS ORDERED: BENZ-36 PO (12:15)
[2022-02-15] MEDS ORDERED: GABA300C PO (12:15)
[2022-02-15] MEDS ORDERED: ACHD5005 PO (12:15)
[2022-02-15] MEDS ORDERED: GABA-486 PO (12:19)
== END 2022-02-14 | disposition home or self-care (01) ==
LOC: ONC 10:17
PROVIDERS: ATTEND Internal Medicine Hematology & Oncology
DX: C64.2 Malignant neoplasm of left kidney, except renal pelvis (principal); E78.5 Hyperlipidemia, unspecified; I10 Essential (primary) hypertension; R91.1 Solitary pulmonary nodule; K76.0 Fatty (change of) liver, not elsewhere classified; K46.9 Unspecified abdominal hernia without obstruction or gangrene; K86.1 Other chronic pancreatitis; J45.909 Unspecified asthma, uncomplicated; E66.01 Morbid (severe) obesity due to excess calories; Z98.890 Other specified postprocedural states
CPT/HCPCS: 36415; 80053; 85025; 99213

== ENCOUNTER 2022-01-31 19:55 | Outpatient (CLI) | payer MEDICARE, MEDICAID | END 2022-02-01 06:15 | disposition home or self-care (01) | LOC: SLEEP 19:55 | PROVIDERS: ATTEND Otolaryngology Otolaryngology/Facial Plastic Surgery | DX: G47.33 Obstructive sleep apnea (adult) (pediatric) (principal) | CPT/HCPCS: 95811 ==

== ENCOUNTER 2022-02-14 21:42 | Inpatient (IN) | payer MEDICARE, MEDICAID ==
[~2022-02-14] VITALS: Ht 160 cm; Wt 117.2 kg
[~2022-02-14 21:42] MED LIST changes: +LEVO-55 PO; -LEVO500T81 PO
[2022-02-14] MEDS ORDERED: NS IV 1000 ML 1,000 ML IV ONE (22:45)
[2022-02-14] MEDS ORDERED: NS IV 1000 ML 1,000 ML IV SCH (22:45)
[2022-02-14] MEDS ORDERED: FAMOTIDINE 20MG/2ML IV (PEPCID) IV STA (22:46)
--- NOTE | 2022-02-14 22:46 | ED Abdominal Pain ---
General Chief Complaint: Abdominal/GI Problems Stated Complaint: ABD PAIN - VOMITING Nursing Triage Note: patient states she had an EGD on Saturday in . patient states she has abdominal pain with nausea and vomitting. states pain worsens with deep breaths. states took zofran at 1900 and Reglan at 2030 with no relief. states found a mass on her pancreas, took a biopsy. Source of Information: Patient Exam Limitations: No Limitations History of Present Illness Date Seen by Provider: Feb 14, 2022 Time Seen by Provider: 22:05 Initial Comments Patient to the ER by private conveyance from home with chief complaint of constant abdominal discomfort in her epigastric region since her EGD/ERCP by GI at [facility]. She has been using her regular doses of Reglan, Phenergan and Zofran without control of her nausea. She does not now keep much down. She has hydrocodone 5 x 325. She called the GI docs and they told her if did not get better by today then to come to the ER to be checked out. She is not having any fevers or chills. She not take any antacids. She rates her pain as a 6 out of 10 presently. She has a history of chronic pancreatitis. She takes Creon twice a day because she states that is all the more time she can eat daily. Allergies and Home Medications Allergies Coded Allergies: fentanyl (Verified Allergy, Unknown, 01/24/22) meperidine (Verified Allergy, Unknown, 01/24/22) penicillin G (Verified Allergy, Unknown, 01/24/22) prochlorperazine (Verified Allergy, Unknown, 01/24/22) trimethobenzamide (Unverified Allergy, Unknown, 01/24/22) vancomycin (Verified Adverse Reaction, Intermediate, severe itching, 01/24/22) Patient Home Medication List Home Medication List Reviewed: Yes Acetaminophen (Tylenol Extra Strength) 500 Mg Tablet, 1,000 MG PO Q8H PRN for PAIN-MILD (1-4), (Reported) Entered as Reported by: EMILIO SHEPPARD on 10/26/19 08 Acetaminophen with Codeine (Acetaminop-Codein 240-24 mg/10) 10 Ml Solution, 10 ML PO Q6H PRN for cough Prescribed by: GEO BORJA on 09/29/212037 Albuterol Sulfate (Albuterol Sulfate) 2.5 Mg/0.5 Ml Vial.neb, 2.5 MG INH Q4H, (Reported) Entered as Reported by: GRIFFIN ORTEGA on 07/24/21 1145 Atorvastatin Calcium (Atorvastatin Calcium) 20 Mg Tablet, 20 MG PO HS, (Rep orted) Entered as Reported by: LEX HOSKINS on 12/07/20 0916 Benzonatate (Tessalon Perles) 100 Mg Capsule, 100 MG PO DAILY, (Reported) Entered as Reported by: GRIFFIN ORTEGA on 07/24/21 1145 Cyanocobalamin (Cyanocobalamin Injection) 1,000 Mcg/Ml Inj, 1,000 MCG IM MONTHLY, (Reported) Entered as Reported by: GRIFFIN ORTEGA on 07/24/21 1145 Cyclobenzaprine HCl (Cyclobenzaprine HCl) 10 Mg Tablet, 10 MG PO Q8H PRN for SPA SMS Prescribed by: MAKAYLA HAWKINS on 02/28/21 0942 Dextromethorphan Polistirex (Delsym) 30 Mg/5 Ml Petyt.er.12h, 10 ML PO BID, (Reported) Entered as Reported by: GRIFFIN ORTEGA on 07/24/21 1145 Diphenhydramine HCl (Benadryl) 25 Mg Capsule, 25 MG PO HS PRN for SLEEP, (Reported) Entered as Reported by: EMILIO SHEPPARD on 10/26/19 0812 Doxycycline Hyclate (Doxycycline Hyclate) 100 Mg Tablet, 100 MG PO BID, (Reported) Entered as Reported by: GRIFFIN ORTEGA on 07/24/21 1139 Estradiol (Estrace Tablet) 1 Mg Tablet, 1 MG PO DAILY, (Reported) Entered as Reported by: GRIFFIN ORTEGA on 07/24/21 1145 Famotidine (Pepcid) 20 Mg Tablet, 20 MG PO BID Prescribed by: IZABELA MAC on 09/28/21 1539 Gabapentin (Neurontin) 300 Mg Capsule, 300 MG PO TID PRN for PAIN-MODERATE (5-7) Prescribed by: IZABELA MAC on 10/11/21 1552 Glyburide (Glyburide) 2.5 Mg Tablet, 2.5 MG PO DAILY, (Reported) Entered as Reported by: GRIFFIN ORTEGA on 07/24/21 1145 Hydrocodone/Acetaminophen (Hydrocodone-Acetamin 5-325 mg) 1 Each Tablet, 2 EACH PO Q6H PRN for PAIN-MILD (1-4), (Reported) Entered as Reported by: EMILIO SHEPPARD on 10/26/19 0812 Hydrocodone/Acetaminophen (Hydrocodone-Acetamin 5-325 mg) 5 Mg-325 Mg Tablet, 1 TAB PO Q4H PRN for PAIN-MODERATE (5-7) Prescribed by: ULI GARNER on 01/10/22 1334 Metoclopramide HCl (Reglan) 5 Mg Tablet, 5 MG PO Q6H PRN for NAUSEA/VOMITING-3RD LINE Prescribed by: IZABELA MAC on 03/13/21 1301 Ondansetron (Ondansetron Odt) 8 Mg Tab.rapdis, 8 MG PO Q8H PRN for NAUSEA/VOMITING, (Reported) Entered as Reported by: EMILIO SHEPPARD on 10/26/19 0812 Ondansetron (Ondansetron Odt) 4 Mg Tab.rapdis, 4 MG PO Q4H Prescribed by: ULI GARNER on 01/10/22 1334 Promethazine HCl (Promethazine Tablet) 25 Mg Tablet, 25 MG PO Q6H PRN for NAUSEA/VOMITING, (Reported) Entered as Reported by: LEX HOSKINS on 12/07/20 0916 Promethazine HCl (Promethazine Tablet) 25 Mg Tablet, 25 MG PO Q6H PRN for NAUSEA/VOMITING Prescribed by: ULI GARNER on 01/10/22 1334 Ropinirole HCl (Ropinirole HCl) 4 Mg Tablet, 4 MG PO HS, (Reported) Entered as Reported by: LEX HOSKINS on 06/28/17 1010 Semaglutide (Ozempic) 0.25 Mg/0.2 Ml Pen.injctr, 0.5 SQ We, (Reported) Entered as Reported by: LIBBY SINGH on 01/24/22 1452 Sertraline HCl (Sertraline HCl) 100 Mg Tablet, 100 MG PO HS, (Reported) Entered as Reported by: LEX HOSKINS on 12/07/20 0912 Sitagliptin Phos/Metformin HCl (Janumet Xr 50-1,000 mg Tablet) 1 Each Tbmp.24hr, 2 TAB-CAP PO DAILY@1900, (Reported) Entered as Reported by: LEX HOSKINS on 12/07/20 0916 Review of Systems Review of Systems Constitutional: No chills, No diaphoresis EENTM: No Blurred Vision, No Double Vision Respiratory: Denies Cough, Denies Orthopnea Cardiovascular: Denies Chest Pain, Denies Lightheadedness Gastrointestinal: See HPI, Abdominal Pain; Denies Constipated, Denies Diarrhea; Nausea Genitourinary: Denies Burning, Denies Discharge Musculoskeletal: No back pain, No joint pain Psychiatric/Neurological: Denies Anxiety, Denies Depressed All Other Systems Reviewed Negative Unless Noted: Yes Past Bffjifn-Hyxsxw-Lqvkgu Hx Patient Social History Tobacco Use?: No Substance use?: No Alcohol Use?: No Immunizations Up To Date Tetanus Booster (TDap): Less than 5yrs PED Vaccines UTD: No First/Initial COVID19 Vaccinat: UNKNOWN DATE Second COVID19 Vaccination Alvaro: UNKNOWN DATE Third COVID19 Vaccination Date: UNKNOWN DATE Seasonal Allergies Seasonal Allergies: No Past Medical History Surgery/Hospitalization HX: several surgeries including 1 kidney removal, appendectomy, cammie., and power port placement, POWER PORT REMOVAL, HYSTERECTOMY Surgeries: Yes (hernia repair x2, knee scopes, port placement) Adenoidectomy, Appendectomy, Gallbladder, Hysterectomy, Nephrectomy, Orthopedic, Tonsillectomy Respiratory: Yes Asthma Currently Using CPAP: No Currently Using BIPAP: No Cardiac: Yes Hypertension Neurological: Yes Headaches /Migraines Reproductive Disorders: Yes (HX ENDOMETRIOSIS ) 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: 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 Sexually Transmitted Disease: No HIV/AIDS: No Genitourinary: Yes (S/P LEFT NEPHRECTOMY) UTI-Chronic Gastrointestinal: Yes (CHRONIC ABD PAIN/N/V./D) Abdominal Hernia, Gastroesophageal Reflux, Liver Disease/Jaundice, Obstructive Bowel, Pancreatitis, Chronic Diarrhea, Polyps Musculoskeletal: Yes (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) Chronic Back Pain Endocrine: Yes (OBESITY) Diabetes, Non-Insulin dep HEENT: No Loss of Vision: Denies Hearing Impairment: Denies Cancer: Yes Kidney Did You Recieve Any Treatments: Yes What Type of Treatment Did You: Surgical Intervention Psychosocial: Yes Anxiety, Depression Integumentary: No Herpes Blood Disorders: No Adverse Reaction/Blood Tranf: No (N/A) Family Medical History Cardiovascular disease 19 FATHER Completed stroke 19 FATHER Diabetes mellitus 19 FATHER Hypercholesterolemia 19 FATHER 19 MOTHER Hypertension 19 FATHER 19 MOTHER Neoplasm 19 MOTHER Psychosocial problem 19 FATHER 19 MOTHER No Pertinent Family Hx, Cancer, Diabetes, Hypertension PSH: -RIGHT KNEE SCOPE X 5 -LEFT KNEE SCOPE X 2 -TONSILLECTOMY / ADENOIDECTOMY -APPENDECTOMY -CHOLECYSTECTOMY -NASAL FRACTURE REPAIR -COCCYX REMOVAL -LEFT NEPHRECTOMY FOR MALIGNANCY -LEFT MID ABDOMEN INCISIONAL HERNIA REPAIR -DRAINAGE OF ABDOMINAL WALL ABSCESS -MULTIPLE EGD'S AND COLONOSCOPIES--LAST ONE DONE HERE 10/26/19 -HYSTERECTOMY / BILATERAL SALPINGO-OOPHORECTOMY 2007 -06/23/20--RIGHT CHEST WALL/SHOULDER INJECTION FOR THORACIC OUTLET SYNDROME--DONE IN -PORT REMOVED FROM LEFT CHEST 07/24/21 FOR NON-FUNCTIONING PORT-BY DR. MARROQUIN Physical Exam Vital Signs Vital Signs - First Documented 02/14/22 21:48 Temp 36.7 Pulse 89 Resp 20 B/P (MAP) 143/93 (110) Pulse Ox 96 O2 Delivery Room Air Capillary Refill : NONE Height/Weight/BMI Height: 5'3.00" Weight: 246lbs. 0oz. 111.856606cj; 45.00 BMI Method:Stated General Appearance: WD/WN, no apparent distress HEENT: PERRL/EOMI, pharynx normal Neck: full range of motion, normal inspection Respiratory: lungs clear, normal breath sounds, no respiratory distress, no accessory muscle use Cardiovascular: normal peripheral pulses, regular rate, rhythm Gastrointestinal: normal bowel sounds, non tender, soft, no organomegaly Extremities: normal range of motion, non-tender, normal capillary refill Neurologic/Psychiatric: alert, normal mood/affect, oriented x 3 Skin: normal color, warm/dry Progress/Results/Core Measures Results/Orders Lab Results Laboratory Tests Test 02/14/22 22:48 02/14/22 23:01 Range/Units White Blood Count 11.8 H 4.3-11.0 10^3/uL Red Blood Count 4.51 3.80-5.11 10^6/uL Hemoglobin 12.1 11.5-16.0 g/dL Hematocrit 37 35-52 % Mean Corpuscular Volume 83 80-99 fL Mean Corpuscular Hemoglobin 27 25-34 pg Mean Corpuscular Hemoglobin Concent 32 32-36 g/dL Red Cell Distribution Width 13.5 10.0-14.5 % Platelet Count 285 130-400 10^3/uL Mean Platelet Volume 9.1 9.0-12.2 fL Immature Granulocyte % (Auto) 0 % Neutrophils (%) (Auto) 53 42-75 % Lymphocytes (%) (Auto) 40 12-44 % Monocytes (%) (Auto) 4 0-12 % Eosinophils (%) (Auto) 3 0-10 % Basophils (%) (Auto) 0 0-10 % Neutrophils # (Auto) 6.2 1.8-7.8 10^3/uL Lymphocytes # (Auto) 4.7 H 1.0-4.0 10^3/uL Monocytes # (Auto) 0.5 0.0-1.0 10^3/uL Eosinophils # (Auto) 0.3 0.0-0.3 10^3/uL Basophils # (Auto) 0.1 0.0-0.1 10^3/uL Immature Granulocyte # (Auto) 0.0 0.0-0.1 10^3/uL Sodium Level 141 135-145 MMOL/L Potassium Level 3.9 3.6-5.0 MMOL/L Chloride Level 106 98-107 MMOL/L Carbon Dioxide Level 25 21-32 MMOL/L Anion Gap 10 5-14 MMOL/L Blood Urea Nitrogen 20 H 7-18 MG/DL Creatinine 0.87 0.60-1.30 MG/DL Estimat Glomerular Filtration Rate 88 BUN/Creatinine Ratio 23 Glucose Level 106 H 70-105 MG/DL Calcium Level 9.5 8.5-10.1 MG/DL Corrected Calcium 9.3 8.5-10.1 MG/DL Total Bilirubin 0.4 0.1-1.0 MG/DL Aspartate Amino Transf (AST/SGOT) 36 H 5-34 U/L Alanine Aminotransferase (ALT/SGPT) 41 0-55 U/L Alkaline Phosphatase 87 40-136 U/L C-Reactive Protein High Sensitivity 0.19 0.00-0.50 MG/DL Total Protein 7.5 6.4-8.2 GM/DL Albumin 4.3 3.2-4.5 GM/DL Amylase Level 112 25-125 U/L Lipase 195 H 8-78 U/L Urine Color YELLOW Urine Clarity CLEAR Urine pH 5.0 5-9 Urine Specific [place] >=1.030 1.016-1.022 Urine Protein NEGATIVE NEGATIVE Urine Glucose (UA) NEGATIVE NEGATIVE Urine Ketones NEGATIVE NEGATIVE Urine Nitrite NEGATIVE NEGATIVE Urine Bilirubin NEGATIVE NEGATIVE Urine Urobilinogen 0.2 < = 1.0 MG/DL Urine Leukocyte Esterase 1+ H NEGATIVE Urine RBC (Auto) NEGATIVE NEGATIVE Urine RBC NONE /HPF Urine WBC 0-2 /HPF Urine Squamous Epithelial Cells 2-5 /HPF Urine Crystals NONE /LPF Urine Bacteria TRACE /HPF Urine Casts NONE /LPF Urine Mucus NEGATIVE /LPF Urine Culture Indicated NO My Orders Orders - MAKAYLA HAWKINS Hs C Reactive Protein (02/14/22 22:00) Ed Iv/Invasive Line Start (02/14/22 22:44) Ns Iv 1000 Ml (Sodium Chloride 0.9%) (02/14/22 22:45) Ns Iv 1000 Ml (Sodium Chloride 0.9%) (02/14/22 22:45) Ondansetron Injection (Zofran Injectio (02/14/22 23:00) Antacid Suspension (Mylanta Suspension (02/14/22 23:00) Famotidine Injection (Pepcid Injection) (02/14/22 22:46) Abdomen/Kub 1view (02/14/22 22:52) Promethazine Injection (Phenergan Injec (02/15/22 00:30) Diphenhydramine Injection (Benadryl Inje (02/15/22 00:30) Morphine Injection (Morphine Injection (02/15/22 00:30) Ondansetron Injection (Zofran Injectio (02/15/22 03:00) Medications Given in ED Current Medications Medications Dose Ordered Sig/Neal Route Start Time Stop Time Status Last Admin Dose Admin Al Hydrox/Mg Hydrox/Simethicone 30 ml ONCE ONCE PO 02/14/22 23:00 02/14/22 23:01 DC 02/14/22 23:07 30 ML Diphenhydramine HCl 25 mg ONCE ONCE IVP 02/15/22 00:30 02/15/22 00:32 DC 02/15/22 01:04 25 MG Ondansetron HCl 8 mg ONCE ONCE IVP 02/14/22 23:00 02/14/22 23:01 DC 02/14/22 23:07 8 MG Ondansetron HCl 8 mg ONCE ONCE IVP 02/15/22 03:00 02/15/22 03:01 DC 02/15/22 03:17 8 MG Promethazine HCl 25 mg ONCE ONCE IVP 02/15/22 00:30 02/15/22 00:32 DC 02/15/22 01:05 25 MG Sodium Chloride 1,000 ml @ 0 mls/hr Q0M ONCE IV 02/14/22 22:45 02/14/22 22:46 DC 02/14/22 23:06 999 MLS/HR Vital Signs/I&O 02/14/22 21:48 Temp 36.7 Pulse 89 Resp 20 B/P (MAP) 143/93 (110) Pulse Ox 96 O2 Delivery Room Air Blood Pressure Mean: 110 Progress Progress Note : Time: 00:09 Progress Note Gave her some Pepcid, Maalox, fluids for her acute on chronic pancreatitis. Diagnostic Imaging Diagonstic Imaging: Xray Plain Films/CT/US/NM/MRI: abdomen, pelvis Comments No free air under the diaphragm. Reviewed: Reviewed by Me Departure Communication (Admissions) Time/Spoke to Admitting Phy: 03:20 Discussed the case with Dr. Lucas who agrees to observe the patient with IV fluids nausea and pain meds. Impression Primary Impression: Pancreatitis Qualified Codes: K85.90 - Acute pancreatitis without necrosis or infection, unspecified Additional Impressions: Intractable nausea and vomiting Dehydration Disposition: ADMITTED INPATIENT Condition: Stable Admissions Decision to Admit Reason: Admit from ER (General) Decision to Admit/Date: Feb 15, 2022 Time/Decision to Admit Time: 03:20 Departure-Patient Inst. Referrals: CARMEN GIBBS MD (PCP/Family) Primary Care Physician MAKAYLA HAWKINS Feb 14, 2022 22:46
[2022-02-14 22:55] LABS: BASOPHILS # (AUTO) 0.1 10^3/uL (0.0-0.1); BASOPHILS % (AUTO) 0 % (0-10); EOSINOPHILS # (AUTO) 0.3 10^3/uL (0.0-0.3); EOSINOPHILS % (AUTO) 3 % (0-10); HEMATOCRIT 37 % (35-52); HEMOGLOBIN 12.1 g/dL (11.5-16.0); LYMPHOCYTES # (AUTO) 4.7 10^3/uL (1.0-4.0); LYMPHOCYTES % (AUTO) 40 % (12-44); MEAN CORPUSCULAR HEMOGLOBIN 27 pg (25-34); MEAN CORPUSCULAR HGB CONC 32 g/dL (32-36); MEAN CORPUSCULAR VOLUME 83 fL (80-99); MEAN PLATELET VOLUME 9.1 fL (9.0-12.2); MONOCYTES # (AUTO) 0.5 10^3/uL (0.0-1.0); MONOCYTES % (AUTO) 4 % (0-12); NEUTROPHILS # (AUTO) 6.2 10^3/uL (1.8-7.8); NEUTROPHILS % (AUTO) 53 % (42-75); PLATELET COUNT 285 10^3/uL (130-400); WHITE BLOOD COUNT 11.8 10^3/uL (4.3-11.0)
[2022-02-14] MEDS ORDERED: ONDANSETRON 4 MG/2 ML (SDV) Z0FRAN IVP ONE (23:00)
[2022-02-14] MEDS ORDERED: ANTACID SUSP 30 ML UDC (MYLANTA) PO ONE (23:00)
[2022-02-14 23:05] LABS: BILIRUBIN,URINE NEGATIVE (NEGATIVE); CLARITY,URINE CLEAR; COLOR,URINE YELLOW; GLUCOSE, URINE (UA) NEGATIVE (NEGATIVE); KETONES,URINE NEGATIVE (NEGATIVE); LEUKOCYTE ESTERASE ,URINE 1+ (NEGATIVE); NITRITE,URINE NEGATIVE (NEGATIVE); PROTEIN,URINE NEGATIVE (NEGATIVE)
[2022-02-14 23:07] LABS: ALBUMIN 4.3 GM/DL (3.2-4.5); POTASSIUM 3.9 MMOL/L (3.6-5.0)
[2022-02-14 23:08] LABS: CALCIUM 9.5 MG/DL (8.5-10.1)
[2022-02-14 23:10] LABS: TOTAL PROTEIN 7.5 GM/DL (6.4-8.2)
[2022-02-14 23:11] LABS: BILIRUBIN,TOTAL 0.4 MG/DL (0.1-1.0)
[2022-02-14 23:13] LABS: CREATININE SERUM 0.87 MG/DL (0.60-1.30)
[2022-02-14 23:14] LABS: BACTERIA,URINE TRACE /HPF; WBC,URINE 0-2 /HPF
[2022-02-15] MEDS ORDERED: morphine INJ 10 MG/ML 1ML (SYR OR VIAL) IVP STA (00:30)
[2022-02-15] MEDS ORDERED: PROMETHAZINE INJ 25 MG/ML (PHENERGAN) AMP IVP ONE (00:30)
[2022-02-15] MEDS ORDERED: diphenhydrAMINE 50 MG/ML INJ (BENADRYL) IVP ONE (00:30)
[2022-02-15] MEDS ORDERED: ONDANSETRON 4 MG/2 ML (SDV) Z0FRAN IVP ONE (03:00)
[2022-02-15 04:26] VITALS: BP 125/81
[2022-02-15] MEDS: HYDROcodone/APAP 5 MG/325 MG (LORTAB) TAB PO PRN ×2 (05:34→08:37)
[2022-02-15] MEDS: LACTATED RINGERS 1,000 ML IV SCH ×3 (05:34→18:50)
--- NOTE | 2022-02-15 06:06 | Diagnostic Imaging Report ---
INDICATION: 36-year-old female with recent EGD. Patient has been having abdominal pain, nausea, and vomiting. COMPARISONS: 01/10/2022 FINDINGS: KUB shows the lung bases to be clear. The bowel gas pattern is normal. There is no organomegaly or abnormal calcifications. There are multiple clips in the right upper quadrant from previous cholecystectomy. IMPRESSION: Normal bowel gas pattern. There is a previous cholecystectomy. Dictated by: Dictated on workstation # [id number]
[2022-02-15 06:29] LABS: BASOPHILS % (AUTO) 1 % (0-10); EOSINOPHILS # (AUTO) 0.2 10^3/uL (0.0-0.3); EOSINOPHILS % (AUTO) 3 % (0-10); HEMATOCRIT 35 % (35-52); LYMPHOCYTES # (AUTO) 3.9 10^3/uL (1.0-4.0); LYMPHOCYTES % (AUTO) 46 % (12-44); MEAN CORPUSCULAR HEMOGLOBIN 27 pg (25-34); MEAN CORPUSCULAR HGB CONC 32 g/dL (32-36); MEAN CORPUSCULAR VOLUME 84 fL (80-99); MEAN PLATELET VOLUME 9.9 fL (9.0-12.2); MONOCYTES # (AUTO) 0.4 10^3/uL (0.0-1.0); MONOCYTES % (AUTO) 5 % (0-12); NEUTROPHILS # (AUTO) 3.8 10^3/uL (1.8-7.8); NEUTROPHILS % (AUTO) 46 % (42-75); PLATELET COUNT 240 10^3/uL (130-400); WHITE BLOOD COUNT 8.4 10^3/uL (4.3-11.0)
[2022-02-15 06:44] LABS: POTASSIUM 3.9 MMOL/L (3.6-5.0)
[2022-02-15 06:46] LABS: CALCIUM 8.8 MG/DL (8.5-10.1)
[2022-02-15 06:50] LABS: CREATININE SERUM 0.75 MG/DL (0.60-1.30)
[2022-02-15 07:59] VITALS: BP 112/76
[2022-02-15] MEDS: ONDANSETRON 4 MG/2 ML (SDV) Z0FRAN IV PRN ×2 (08:37→16:24)
[2022-02-15 11:54] VITALS: BP 133/59
[2022-02-15] MEDS ORDERED: ACHD5005 PO (12:15)
[2022-02-15] MEDS ORDERED: BENZ-36 PO (12:15)
[2022-02-15] MEDS ORDERED: CYCL10TA25 PO (12:15)
[2022-02-15] MEDS ORDERED: PREG75CA75 PO (12:15)
[2022-02-15] MEDS ORDERED: GABA300C PO (12:15)
[2022-02-15] MEDS ORDERED: CETI10TA17 PO (12:15)
[2022-02-15] MEDS ORDERED: ALBU18HF2 INH (12:15)
[2022-02-15] MEDS ORDERED: ATOR40TA70 PO (12:15)
[2022-02-15] MEDS ORDERED: MTC10T PO (12:15)
[2022-02-15] MEDS ORDERED: LIPA1CAP4 PO (12:15)
[2022-02-15] MEDS ORDERED: ALBU2.5V4 PO (12:15)
[2022-02-15] MEDS ORDERED: GABA-486 PO (12:19)
[2022-02-15] MEDS: PROMETHAZINE INJ 25 MG/ML (PHENERGAN) AMP IVP PRN ×3 (14:07→22:11)
[2022-02-15 15:29] VITALS: BP 112/75
[2022-02-15] MEDS: morphine INJ 4 MG/ML 1 ML (VIAL/SYRINGE) IV PRN (16:23)
[2022-02-15 19:23] VITALS: BP 117/79
--- NOTE | 2022-02-15 21:08 | History & Physical ---
HPI History of Present Illness: 36 yo F that presents with N/V and has a history of recurrent pancreatitis. Patient states that it all started after she had an EGD on Saturday. She states that she has not been able to eat since EGD. This AM she states that her pain has improved but maryam she is still having alot of nausea and vomiting. Source: patient Exam Limitations: no limitations Date seen by provider: Feb 15, 2022 Time Seen by Provider: 10:05 Attending Physician Mary Whittington MD PCP Admitting Physician: Ewelina Lucas MD Attending Physician: Ewelina Lucas MD Consult Date of Admission Feb 15, 2022 at 03:29 Home Medications Home Medications Reviewed patient Home Medication Reconciliation performed by pharmacy medication reconciliations heat treatment technician and/or nursing. Patients Allergies have been reviewed. Allergies Coded Allergies: fentanyl (Verified Allergy, Unknown, 01/24/22) meperidine (Verified Allergy, Unknown, 01/24/22) penicillin G (Verified Allergy, Unknown, 01/24/22) prochlorperazine (Verified Allergy, Unknown, 01/24/22) trimethobenzamide (Unverified Allergy, Unknown, 01/24/22) vancomycin (Verified Adverse Reaction, Intermediate, severe itching, 01/24/22) [id number]-[id number]-Zxpccb Hx Patient Social History Smoking Status: Never a Smoker 2nd Hand Smoke Exposure: No Recent Hopitalizations: No Alcohol Use?: No Have you traveled recently?: No Immunizations Up To Date Tetanus Booster (TDap): Less than 5yrs Influenza Vaccine Up-to-Date: No; Not Current First/Initial COVID19 Vaccinat: UNKNOWN DATE Second COVID19 Vaccination Alvaro: UNKNOWN DATE Third COVID19 Vaccination Date: UNKNOWN DATE Past Medical History PMHx: Chronic pancreatitis Chronic tension headache Asthma PTSD Trichotillomania Restless leg syndrome Renal cell carcinoma s/p left nephrectomy Chronic fatigue SurgHx: Left nephrectomy Knee arthroscopy x 2 Coccyx surgery Tonsillectomy and adenoidectomy Appendectomy Hysterectomy Cholecystectomy Hernia repair Family Medical History Significant Family History: No Pertinent Family Hx, Cancer, Diabetes, Hypertension Other Significan Family Hx: PSH: -RIGHT KNEE SCOPE X 5 -LEFT KNEE SCOPE X 2 -TONSILLECTOMY / ADENOIDECTOMY -APPENDECTOMY -CHOLECYSTECTOMY -NASAL FRACTURE REPAIR -COCCYX REMOVAL -LEFT NEPHRECTOMY FOR MALIGNANCY -LEFT MID ABDOMEN INCISIONAL HERNIA REPAIR -DRAINAGE OF ABDOMINAL WALL ABSCESS -MULTIPLE EGD'S AND COLONOSCOPIES--LAST ONE DONE HERE 10/26/19 -HYSTERECTOMY / BILATERAL SALPINGO-OOPHORECTOMY 2007 -06/23/20--RIGHT CHEST WALL/SHOULDER INJECTION FOR THORACIC OUTLET SYNDROME--DONE IN -PORT REMOVED FROM LEFT CHEST 07/24/21 FOR NON-FUNCTIONING PORT-BY DR. MARROQUIN Family History: Cardiovascular disease 19 FATHER Completed stroke 19 FATHER Diabetes mellitus 19 FATHER Hypercholesterolemia 19 FATHER 19 MOTHER Hypertension 19 FATHER 19 MOTHER Neoplasm 19 MOTHER Psychosocial problem 19 FATHER 19 MOTHER Review of Systems (CHC) Constitutional: malaise EENTM: no symptoms reported; No nose congestion, No nose pain Respiratory: no symptoms reported; No cough, No dyspnea on exertion, No short of breath Cardiovascular: no symptoms reported; No chest pain, No palpitations Gastrointestinal: abdominal pain, loss of appetite, nausea, vomiting Genitourinary: no symptoms reported Musculoskeletal: back pain Skin: no symptoms reported Psychiatric/Neurological: No Symptoms Reported Reviewed Test Results Reviewed Test Results Lab Laboratory Tests Test 02/14/22 22:48 02/14/22 23:01 02/15/22 05:12 Range/Units White Blood Count 11.8 H 8.4 4.3-11.0 10^3/uL Red Blood Count 4.51 4.11 3.80-5.11 10^6/uL Hemoglobin 12.1 11.0 L 11.5-16.0 g/dL Hematocrit 37 35 35-52 % Mean Corpuscular Volume 83 84 80-99 fL Mean Corpuscular Hemoglobin 27 27 25-34 pg Mean Corpuscular Hemoglobin Concent 32 32 32-36 g/dL Red Cell Distribution Width 13.5 13.6 10.0-14.5 % Platelet Count 285 240 130-400 10^3/uL Mean Platelet Volume 9.1 9.9 9.0-12.2 fL Immature Granulocyte % (Auto) 0 0 % Neutrophils (%) (Auto) 53 46 42-75 % Lymphocytes (%) (Auto) 40 46 H 12-44 % Monocytes (%) (Auto) 4 5 0-12 % Eosinophils (%) (Auto) 3 3 0-10 % Basophils (%) (Auto) 0 1 0-10 % Neutrophils # (Auto) 6.2 3.8 1.8-7.8 10^3/uL Lymphocytes # (Auto) 4.7 H 3.9 1.0-4.0 10^3/uL Monocytes # (Auto) 0.5 0.4 0.0-1.0 10^3/uL Eosinophils # (Auto) 0.3 0.2 0.0-0.3 10^3/uL Basophils # (Auto) 0.1 0.0 0.0-0.1 10^3/uL Immature Granulocyte # (Auto) 0.0 0.0 0.0-0.1 10^3/uL Sodium Level 141 139 135-145 MMOL/L Potassium Level 3.9 3.9 3.6-5.0 MMOL/L Chloride Level 106 109 H 98-107 MMOL/L Carbon Dioxide Level 25 22 21-32 MMOL/L Anion Gap 10 8 5-14 MMOL/L Blood Urea Nitrogen 20 H 17 7-18 MG/DL Creatinine 0.87 0.75 0.60-1.30 MG/DL Estimat Glomerular Filtration Rate 88 105 BUN/Creatinine Ratio 23 23 Glucose Level 106 H 104 70-105 MG/DL Calcium Level 9.5 8.8 8.5-10.1 MG/DL Corrected Calcium 9.3 8.5-10.1 MG/DL Total Bilirubin 0.4 0.1-1.0 MG/DL Aspartate Amino Transf (AST/SGOT) 36 H 5-34 U/L Alanine Aminotransferase (ALT/SGPT) 41 0-55 U/L Alkaline Phosphatase 87 40-136 U/L C-Reactive Protein High Sensitivity 0.19 0.00-0.50 MG/DL Total Protein 7.5 6.4-8.2 GM/DL Albumin 4.3 3.2-4.5 GM/DL Amylase Level 112 25-125 U/L Lipase 195 H 8-78 U/L Urine Color YELLOW Urine Clarity CLEAR Urine pH 5.0 5-9 Urine Specific [place] >=1.030 1.016-1.022 Urine Protein NEGATIVE NEGATIVE Urine Glucose (UA) NEGATIVE NEGATIVE Urine Ketones NEGATIVE NEGATIVE Urine Nitrite NEGATIVE NEGATIVE Urine Bilirubin NEGATIVE NEGATIVE Urine Urobilinogen 0.2 < = 1.0 MG/DL Urine Leukocyte Esterase 1+ H NEGATIVE Urine RBC (Auto) NEGATIVE NEGATIVE Urine RBC NONE /HPF Urine WBC 0-2 /HPF Urine Squamous Epithelial Cells 2-5 /HPF Urine Crystals NONE /LPF Urine Bacteria TRACE /HPF Urine Casts NONE /LPF Urine Mucus NEGATIVE /LPF Urine Culture Indicated NO Physical Exam-(CHC) Physical Exam Vital Signs VS - Last 72 Hours, by Label 02/14/22 02/15/22 02/15/22 02/15/22 21:48 03:59 04:26 04:32 Temp 36.7 36.7 35.9 Pulse 89 72 70 Resp 20 16 18 B/P (MAP) 143/93 (110) 121/96 125/81 (96) Pulse Ox 96 95 98 98 O2 Delivery Room Air Room Air Room Air Room Air 02/15/22 02/15/22 02/15/22 02/15/22 07:59 08:00 11:54 15:29 Temp 36.6 36.5 36.4 Pulse 63 61 71 Resp 18 18 18 B/P (MAP) 112/76 (88) 133/59 (83) 112/75 (87) Pulse Ox 96 95 98 O2 Delivery Room Air Room Air Room Air Room Air 02/15/22 02/15/22 19:23 20:56 Temp 36.4 Pulse 76 Resp 18 B/P (MAP) 117/79 (92) Pulse Ox 95 O2 Delivery Room Air Room Air Capillary Refill : NONE General Appearance: WD/WN, no apparent distress HEENT: PERRL/EOMI Neck: non-tender, full range of motion, supple Respiratory: chest non-tender, normal breath sounds, no respiratory distress, no accessory muscle use Cardiovascular: regular rate, rhythm, no edema, no murmur Gastrointestinal: soft, tenderness (epigastric ttp, mild rebound, no gaurding) Extremities: normal range of motion, non-tender, no pedal edema, no calf tenderness 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
[2022-02-15] MEDS: rOPINIRole 1 MG (REQUIP) TABLET PO SCH (22:11)
[2022-02-15 23:41] VITALS: BP 121/75
[2022-02-16] MEDS: LACTATED RINGERS 1,000 ML IV SCH ×3 (01:25→16:45)
[2022-02-16] MEDS: ONDANSETRON 4 MG/2 ML (SDV) Z0FRAN IV PRN ×4 (01:38→22:08)
[2022-02-16] MEDS: HYDROcodone/APAP 5 MG/325 MG (LORTAB) TAB PO PRN (03:11)
[2022-02-16 04:22] VITALS: BP 119/77
[2022-02-16] MEDS: PROMETHAZINE INJ 25 MG/ML (PHENERGAN) AMP IVP PRN ×3 (05:14→19:16)
[2022-02-16] MEDS: morphine INJ 4 MG/ML 1 ML (VIAL/SYRINGE) IV PRN ×4 (05:14→22:08)
[2022-02-16 06:25] LABS: BASOPHILS % (AUTO) 1 % (0-10); EOSINOPHILS # (AUTO) 0.2 10^3/uL (0.0-0.3); EOSINOPHILS % (AUTO) 3 % (0-10); HEMATOCRIT 36 % (35-52); HEMOGLOBIN 11.7 g/dL (11.5-16.0); LYMPHOCYTES # (AUTO) 3.3 10^3/uL (1.0-4.0); LYMPHOCYTES % (AUTO) 40 % (12-44); MEAN CORPUSCULAR HEMOGLOBIN 27 pg (25-34); MEAN CORPUSCULAR HGB CONC 32 g/dL (32-36); MEAN CORPUSCULAR VOLUME 83 fL (80-99); MEAN PLATELET VOLUME 9.3 fL (9.0-12.2); MONOCYTES # (AUTO) 0.4 10^3/uL (0.0-1.0); MONOCYTES % (AUTO) 5 % (0-12); NEUTROPHILS # (AUTO) 4.3 10^3/uL (1.8-7.8); NEUTROPHILS % (AUTO) 52 % (42-75); PLATELET COUNT 241 10^3/uL (130-400); WHITE BLOOD COUNT 8.3 10^3/uL (4.3-11.0)
[2022-02-16 06:29] LABS: ALBUMIN 3.8 GM/DL (3.2-4.5); POTASSIUM 3.8 MMOL/L (3.6-5.0)
[2022-02-16 06:31] LABS: CALCIUM 9.5 MG/DL (8.5-10.1)
[2022-02-16 06:32] LABS: TOTAL PROTEIN 6.8 GM/DL (6.4-8.2)
[2022-02-16 06:34] LABS: BILIRUBIN,TOTAL 0.6 MG/DL (0.1-1.0)
[2022-02-16 06:35] LABS: CREATININE SERUM 0.85 MG/DL (0.60-1.30)
[2022-02-16 07:54] VITALS: BP 130/69
--- NOTE | 2022-02-16 10:12 | Progress Note ---
JENA GUEVARA 02/16/22 1012: Subjective Subjective/Events-last exam Patient is a 36 yo female admitted for pancreatitis. Says that she is still feeling quite ill today. Nausea and vomiting have continued and she is having difficulty keeping anything down, even water. She noted dark, watery stools on Saturday but has not had a bowel movement since. Complains of minor headache, lightheadedness, difficulty urinating but feels the urge to. States that the pain is in her upper abdomen and radiates to her back. She denies SOB, constipation, palpitations, or dysuria. Review of Systems General: No Appetite HEENT: Head Aches Pulmonary: No Cough; Other (No shortness of breath) Cardiovascular: Lt Headedness; No: Chest Pain, Palpitations, Edema Gastrointestinal: Nausea, Vomiting (Last vomited at 0300 this morning), Diarrhea (Watery stools at last BM, Saturday), Melena; No: Constipation, Hematochezia Genitourinary: No Dysuria; Retention Neurological: No: Change in speech, Confusion Focused Exam Sepsis Stage: Ruled Out Reason for ruling out sepsis: Patient does not meet SIRS criteria for sepsis diagnosis Objective Exam Last Set of Vital Signs Vital Signs Date Time Temp Pulse Resp B/P (MAP) Pulse Ox O2 Delivery O2 Flow Rate FiO2 02/16/22 07:54 36.5 74 18 130/69 (89) 95 Room Air Capillary Refill : NONE I&O Intake and Output 02/15/22 23:59 Intake Total 4100 ml Balance 4100 ml Intake Oral 1100 ml IV Total 3000 ml # Voids 6 Daily Weight Change Yes, 2-13 lbs General: Alert, Oriented X3, Cooperative, Mild Distress Neck: Supple, No JVD Lungs: Clear to Auscultation, Normal Air Movement Heart: Regular Rate, Normal S1, Normal S2, No Murmurs Abdomen: Normal Bowel Sounds, No Hepatosplenomegaly, No Masses, Other (Tenderness to palpation in RLQ (location of mesh). Severe tenderness to palpa tion in epigastric region.) Extremities: No Cyanosis, No Edema Skin: No Rashes, No Breakdown, No Significant Lesion Neuro: Normal Speech, Normal Tone, Sensation Intact Psych/Mental Status: Mental Status NL, Mood NL Results/Procedures Lab Laboratory Tests 02/16/22 05:58: White Blood Count 8.3, Red Blood Count 4.39, Hemoglobin 11.7, Hematocrit 36, Mean Corpuscular Volume 83, Mean Corpuscular Hemoglobin 27, Mean Corpuscular Hemoglobin Concent 32, Red Cell Distribution Width 13.5, Platelet Count 241, Mean Platelet Volume 9.3, Immature Granulocyte % (Auto) 1, Neutrophils (%) (Auto) 52, Lymphocytes (%) (Auto) 40, Monocytes (%) (Auto) 5, Eosinophils (%) (Auto) 3, Basophils (%) (Auto) 1, Neutrophils # (Auto) 4.3, Lymphocytes # (Auto) 3.3, Monocytes # (Auto) 0.4, Eosinophils # (Auto) 0.2, Basophils # (Auto) 0.0, Immature Granulocyte # (Auto) 0.0, Sodium Level 140, Potassium Level 3.8, Chloride Level 103, Carbon Dioxide Level 26, Anion Gap 11, Blood Urea Nitrogen 12, Creatinine 0.85, Estimat Glomerular Filtration Rate 90, BUN/Creatinine Ratio 14, Glucose Level 94, Calcium Level 9.5, Corrected Calcium 9.7, Total Bilirubin 0.6, Aspartate Amino Transf (AST/SGOT) 48H, Alanine Aminotransferase (ALT/SGPT) 47, Alkaline Phosphatase 81, Total Protein 6.8, Albumin 3.8 Radiology Date of Exam:02/14/22 ABDOMEN/KUB 1VIEW INDICATION: 36-year-old female with recent EGD. Patient has been having abdominal pain, nausea, and vomiting. COMPARISONS: 01/10/2022 FINDINGS: KUB shows the lung bases to be clear. The bowel gas pattern is normal. There is no organomegaly or abnormal calcifications. There are multiple clips in the right upper quadrant from previous cholecystectomy. IMPRESSION: Normal bowel gas pattern. There is a previous cholecystectomy. Dictated by: Dictated on workstation # [id number] Dict: 02/15/22 0603 Trans: 02/15/22 0707 CINDY [id number] Interpreted by: TR GOMEZ MD Electronically signed by: TR GOMEZ MD 02/15/22 07 Meds See medication list. Assessment/Plan Assessment/Plan Admission Dx Pancreatitis Admission Status: Observation (1) Nausea & vomiting Status: Chronic Assessment & Plan: - Continue Zofran and Phenergen PRN Qualifiers: Qualified Codes: R11.2 - Nausea with vomiting, unspecified (2) Acute on chronic pancreatitis Status: Acute Assessment & Plan: - CLD and will advance as tolerated. Patient administered LR (150 ml/hr IV) for fluid replacement therapy. Lortab and morphine sulfate administered for pain. EWELINA LUCAS MD 02/16/22 1043: Subjective Review of Systems General: Malaise; No Appetite Pulmonary: No Dyspnea, No Cough Cardiovascular: No: Chest Pain, Palpitations, Edema Gastrointestinal: Nausea, Vomiting (Last vomited at 0300 this morning), Abdominal Pain Genitourinary: No Dysuria, No Frequency Objective Exam General: Alert, Oriented X3, Cooperative, No Acute Distress Lungs: Clear to Auscultation, Normal Air Movement Heart: Regular Rate, No Murmurs Abdomen: Normal Bowel Sounds, Other (Tenderness to palpation in RLQ (location of mesh). Severe tenderness to palpation in epigastric region.) Extremities: No Edema, No Tenderness/Swelling Neuro: Normal Speech, Strength at 5/5 X4 Ext Psych/Mental Status: Mental Status NL, Mood NL Supervisory-Addendum Brief Verification & Attestation Participated in pt care: history, physical Personally performed: exam, history Care discussed with: Medical Student Procedures: n/a Verification and Attestation of Medical Student E/M Service A medical student performed and documented this service in my presence. I reviewed and verified all information documented by the medical student and made modifications to such information, when appropriate. I personally performed the physical exam and medical decision making. Ewelina Lucas, Feb 16, 2022,10:42 Acute on Chronic Pancreatitis -02/16: CLD, IVFs, pain control, bowel rest, advance as tolerated Nausea and Vomiting - 02/16: Zofran/phenergen PRN Discharge planning: OK to d/c when tolerating a diet JENA GUEVARA Feb 16, 2022 10:12 EWELINA LUCAS MD Feb 16, 2022 10:43
[2022-02-16 12:00] VITALS: BP 128/78
[2022-02-16 16:26] VITALS: BP 129/85
[2022-02-16 19:58] VITALS: BP 140/83
[2022-02-16] MEDS: rOPINIRole 1 MG (REQUIP) TABLET PO SCH (20:54)
[2022-02-16 23:48] VITALS: BP 132/81
[2022-02-17] MEDS: LACTATED RINGERS 1,000 ML IV SCH ×4 (00:40→18:00)
[2022-02-17] MEDS: PROMETHAZINE INJ 25 MG/ML (PHENERGAN) AMP IM PRN ×3 (00:55→15:07)
[2022-02-17] MEDS ORDERED: ONDANSETRON 4 MG (ZOFRAN) ORAL DISSOLVE TAB ONE (03:29)
[2022-02-17] MEDS: ONDANSETRON 4 MG (ZOFRAN) ORAL DISSOLVE TAB PO PRN ×2 (03:30→12:33)
[2022-02-17] MEDS: HYDROcodone/APAP 5 MG/325 MG (LORTAB) TAB PO PRN (04:49)
[2022-02-17 04:58] LABS: BASOPHILS % (AUTO) 0 % (0-10); EOSINOPHILS # (AUTO) 0.2 10^3/uL (0.0-0.3); EOSINOPHILS % (AUTO) 2 % (0-10); HEMATOCRIT 36 % (35-52); HEMOGLOBIN 11.6 g/dL (11.5-16.0); LYMPHOCYTES # (AUTO) 2.8 10^3/uL (1.0-4.0); LYMPHOCYTES % (AUTO) 33 % (12-44); MEAN CORPUSCULAR HEMOGLOBIN 26 pg (25-34); MEAN CORPUSCULAR HGB CONC 32 g/dL (32-36); MEAN CORPUSCULAR VOLUME 82 fL (80-99); MEAN PLATELET VOLUME 9.3 fL (9.0-12.2); MONOCYTES # (AUTO) 0.4 10^3/uL (0.0-1.0); MONOCYTES % (AUTO) 5 % (0-12); NEUTROPHILS # (AUTO) 5.1 10^3/uL (1.8-7.8); NEUTROPHILS % (AUTO) 60 % (42-75); PLATELET COUNT 241 10^3/uL (130-400); WHITE BLOOD COUNT 8.5 10^3/uL (4.3-11.0)
[2022-02-17 05:11] LABS: ALBUMIN 3.8 GM/DL (3.2-4.5); POTASSIUM 3.6 MMOL/L (3.6-5.0)
[2022-02-17 05:12] LABS: CALCIUM 9.4 MG/DL (8.5-10.1)
[2022-02-17 05:14] LABS: TOTAL PROTEIN 6.8 GM/DL (6.4-8.2)
[2022-02-17 05:16] LABS: BILIRUBIN,TOTAL 0.6 MG/DL (0.1-1.0)
[2022-02-17 05:17] LABS: CREATININE SERUM 0.95 MG/DL (0.60-1.30)
[2022-02-17 07:34] VITALS: BP 95/55
[2022-02-17 08:31] VITALS: BP 117/68
--- NOTE | 2022-02-17 10:13 | Progress Note ---
Subjective Subjective/Events-last exam Patient still unable to tolerate CLD. States that she has been sipping on water. Her IV went bad ON and she has not been on IVFs. Review of Systems Pulmonary: No Dyspnea Cardiovascular: No: Chest Pain, Palpitations, Edema Gastrointestinal: Nausea, Vomiting, Abdominal Pain; No: Diarrhea, Constipation Objective Exam Last Set of Vital Signs Vital Signs Date Time Temp Pulse Resp B/P (MAP) Pulse Ox O2 Delivery O2 Flow Rate FiO2 02/17/22 08:31 117/68 (84) 02/17/22 08:00 Room Air 02/17/22 07:34 36.4 80 18 92 Capillary Refill : NONE I&O Intake and Output 02/17/22 00:00 Intake Total 1375 ml Balance 1375 ml Intake Oral 1375 ml # Voids 5 General: Alert, Oriented X3, No Acute Distress Lungs: Clear to Auscultation, Normal Air Movement Heart: Regular Rate, No Murmurs Abdomen: Soft, Other (Epigastric ttp, no rebound or guarding) Extremities: No Edema, No Tenderness/Swelling Neuro: Normal Speech Results/Procedures Lab Laboratory Tests 02/17/22 04:43: White Blood Count 8.5, Red Blood Count 4.39, Hemoglobin 11.6, Hematocrit 36, Mean Corpuscular Volume 82, Mean Corpuscular Hemoglobin 26, Mean Corpuscular Hemoglobin Concent 32, Red Cell Distribution Width 13.4, Platelet Count 241, Mean Platelet Volume 9.3, Immature Granulocyte % (Auto) 0, Neutrophils (%) (Auto) 60, Lymphocytes (%) (Auto) 33, Monocytes (%) (Auto) 5, Eosinophils (%) (Auto) 2, Basophils (%) (Auto) 0, Neutrophils # (Auto) 5.1, Lymphocytes # (Auto) 2.8, Monocytes # (Auto) 0.4, Eosinophils # (Auto) 0.2, Basophils # (Auto) 0.0, Immature Granulocyte # (Auto) 0.0, Sodium Level 140, Potassium Level 3.6, Chloride Level 100, Carbon Dioxide Level 27, Anion Gap 13, Blood Urea Nitrogen 11, Creatinine 0.95, Estimat Glomerular Filtration Rate 79, BUN/Creatinine Ratio 12, Glucose Level 120H, Calcium Level 9.4, Corrected Calcium 9.6, Total Bilirubin 0.6, Aspartate Amino Transf (AST/SGOT) 39H, Alanine Aminotransferase (ALT/SGPT) 47, Alkaline Phosphatase 80, Total Protein 6.8, Albumin 3.8, Lipase 61 Radiology Date of Exam:02/14/22 ABDOMEN/KUB 1VIEW INDICATION: 36-year-old female with recent EGD. Patient has been having abdominal pain, nausea, and vomiting. COMPARISONS: 01/10/2022 FINDINGS: KUB shows the lung bases to be clear. The bowel gas pattern is normal. There is no organomegaly or abnormal calcifications. There are multiple clips in the right upper quadrant from previous cholecystectomy. IMPRESSION: Normal bowel gas pattern. There is a previous cholecystectomy. Dictated by: Dictated on workstation # [id number] Dict: 02/15/22 06 Trans: 02/15/22 07 CINDY [id number] Interpreted by: TR GOMEZ MD Electronically signed by: TR GOMEZ MD 02/15/22 0707 Assessment/Plan Assessment/Plan (1) Nausea & vomiting Status: Chronic Assessment & Plan: - Continue Zofran and Phenergen PRN 02/17: Would schedule meds for the next 24hrs Qualifiers: Qualified Codes: R11.2 - Nausea with vomiting, unspecified (2) Acute on chronic pancreatitis Status: Acute Assessment & Plan: - CLD and will advance as tolerated. Patient administered LR (150 ml/hr IV) for fluid replacement therapy. Lortab and morphine sulfate administered for pain. 02/17: Lipase is resolved, labs improving, will try and get another IV in patient, she is nervous about not being able to stay hydrated at home EWELINA SHIELDS MD Feb 17, 2022 10:13
[2022-02-17 11:42] VITALS: BP 122/65
[2022-02-17 16:47] VITALS: BP 143/83
[2022-02-17] MEDS: rOPINIRole 1 MG (REQUIP) TABLET PO SCH (19:35)
[2022-02-17] MEDS: ONDANSETRON 4 MG/2 ML (SDV) Z0FRAN IV PRN (19:35)
[2022-02-17] MEDS: PROMETHAZINE INJ 25 MG/ML (PHENERGAN) AMP IVP PRN (22:16)
[2022-02-17] MEDS: morphine INJ 4 MG/ML 1 ML (VIAL/SYRINGE) IV PRN (23:23)
[2022-02-18] VITALS: BP 120/76
[2022-02-18] MEDS: LACTATED RINGERS 1,000 ML IV SCH ×4 (00:37→23:39)
[2022-02-18] MEDS: ONDANSETRON 4 MG (ZOFRAN) ORAL DISSOLVE TAB PO PRN ×2 (02:25→08:32)
[2022-02-18] MEDS: PROMETHAZINE INJ 25 MG/ML (PHENERGAN) AMP IM PRN ×2 (05:12→12:43)
[2022-02-18 08:07] VITALS: BP 120/82
[2022-02-18] MEDS: HYDROcodone/APAP 5 MG/325 MG (LORTAB) TAB PO PRN (08:33)
[2022-02-18 09:22] LABS: ALBUMIN 4.2 GM/DL (3.2-4.5)
[2022-02-18 09:24] LABS: CALCIUM 9.6 MG/DL (8.5-10.1)
[2022-02-18 09:25] LABS: TOTAL PROTEIN 7.1 GM/DL (6.4-8.2)
[2022-02-18 09:28] LABS: CREATININE SERUM 1.01 MG/DL (0.60-1.30)
--- NOTE | 2022-02-18 13:19 | Progress Note ---
Subjective Subjective/Events-last exam Patient is having increase in abdominal pain and unable to tolerate anything PO. She has vomited 3 times since midnight. Review of Systems Gastrointestinal: Nausea, Vomiting, Abdominal Pain Neurological: Weakness Objective Exam Last Set of Vital Signs Vital Signs Date Time Temp Pulse Resp B/P (MAP) Pulse Ox O2 Delivery O2 Flow Rate FiO2 02/18/22 08:34 Room Air 02/18/22 08:07 36.3 81 18 120/82 (95) 93 Capillary Refill : NONE I&O Intake and Output 02/18/22 00:00 Intake Total 2050 ml Output Total 600 ml Balance 1450 ml Intake Oral 2050 ml Output Urine Total 600 ml # Voids 2 General: Alert, Oriented X3, No Acute Distress HEENT: Other (dry MM) Lungs: Clear to Auscultation, Normal Air Movement Heart: Regular Rate, No Murmurs Abdomen: Normal Bowel Sounds, Soft, Other (moderate epigastric abdominal pain, mild guarding, no rebound) Extremities: No Edema, No Tenderness/Swelling Results/Procedures Lab Laboratory Tests 02/18/22 08:58: Sodium Level 142, Potassium Level 4.0, Chloride Level 103, Carbon Dioxide Level 24, Anion Gap 15H, Blood Urea Nitrogen 9, Creatinine 1.01, Estimat Glomerular Filtration Rate 74, BUN/Creatinine Ratio 9, Glucose Level 100, Calcium Level 9.6, Corrected Calcium 9.4, Total Bilirubin 1.0, Aspartate Amino Transf (AST/SGOT) 57H, Alanine Aminotransferase (ALT/SGPT) 62H, Alkaline Phosphatase 88, Total Protein 7.1, Albumin 4.2 Radiology Date of Exam:02/14/22 ABDOMEN/KUB 1VIEW INDICATION: 36-year-old female with recent EGD. Patient has been having abdominal pain, nausea, and vomiting. COMPARISONS: 01/10/2022 FINDINGS: KUB shows the lung bases to be clear. The bowel gas pattern is normal. There is no organomegaly or abnormal calcifications. There are multiple clips in the right upper quadrant from previous cholecystectomy. IMPRESSION: Normal bowel gas pattern. There is a previous cholecystectomy. Dictated by: Dictated on workstation # [id number] Dict: 02/15/22 0603 Trans: 02/15/22 0707 CINDY [id number] Interpreted by: TR GOMEZ MD Electronically signed by: TR GOMEZ MD 02/15/22 0707 Assessment/Plan Assessment/Plan (1) Nausea & vomiting Status: Chronic Assessment & Plan: - Continue Zofran and Phenergen PRN 02/17: Would schedule meds for the next 24hrs 02/18: Worsening, changed to NPO Qualifiers: Qualified Codes: R11.2 - Nausea with vomiting, unspecified (2) Acute on chronic pancreatitis Status: Acute Assessment & Plan: - CLD and will advance as tolerated. Patient administered LR (150 ml/hr IV) for fluid replacement therapy. Lortab and morphine sulfate administered for pain. 02/17: Lipase is resolved, labs improving, will try and get another IV in patient, she is nervous about not being able to stay hydrated at home 02/18: LFTs increasing, CT abdomen/pelvis ordered due to increasing abdominal pain and unable to tolerate PO EWELINA SHIELDS MD Feb 18, 2022 13:19
--- NOTE | 2022-02-18 14:36 | Diagnostic Imaging Report ---
PROCEDURE: CT abdomen and pelvis without contrast. TECHNIQUE: Multiple contiguous axial images were obtained through the abdomen and pelvis without the use of intravenous contrast. Auto Exposure Controls were utilized during the CT exam to meet ALARA standards for radiation dose reduction. INDICATION: Worsening abdominal pain. EGD 5 days ago. COMPARISON: 08/01/2021. FINDINGS: The heart is unremarkable. The lung bases are clear. The liver, spleen, pancreas, adrenal glands, and right kidney have a normal noncontrast CT appearance. The left kidney is surgically absent. The gallbladder is surgically absent. Splenules are seen in the left upper quadrant. There is no pathologically enlarged mesenteric or retroperitoneal adenopathy. Nondilated fluid-filled loops of small bowel are seen in the left hemiabdomen. Prior partial bowel resection changes are seen in the left upper quadrant. The appendix is surgically absent. There is no free fluid or free air. No acute osseous abnormalities. Ureters and bladder are normal. There is no free air, loculated collection, or adenopathy in the pelvis. IMPRESSION: 1. Nondilated fluid-filled loops of small bowel in the left hemiabdomen, which may represent enteritis. No evidence of bowel obstruction. No free fluid or free air. Dictated by: Dictated on workstation # [id number]
[2022-02-18] MEDS: diphenhydrAMINE 50 MG/ML INJ (BENADRYL) IV PRN (14:47)
[2022-02-18 15:38] VITALS: BP 115/66
[2022-02-18] MEDS: morphine INJ 4 MG/ML 1 ML (VIAL/SYRINGE) IV PRN ×2 (17:26→21:41)
[2022-02-18] MEDS: ONDANSETRON 4 MG/2 ML (SDV) Z0FRAN IV PRN ×2 (17:27→23:35)
[2022-02-18] MEDS: HEParin (CENTRAL IV FLUSH) 500 UNIT/5 ML SYR IV SCH (19:17)
[2022-02-18] MEDS: rOPINIRole 1 MG (REQUIP) TABLET PO SCH (19:39)
[2022-02-18] MEDS: PROMETHAZINE INJ 25 MG/ML (PHENERGAN) AMP IVP PRN (21:39)
[2022-02-18 23:55] VITALS: BP 133/79
[2022-02-19] MEDS: PROMETHAZINE INJ 25 MG/ML (PHENERGAN) AMP IVP PRN ×3 (01:31→23:07)
[2022-02-19] MEDS: LACTATED RINGERS 1,000 ML IV SCH ×4 (02:37→20:31)
[2022-02-19] MEDS: diphenhydrAMINE 50 MG/ML INJ (BENADRYL) IV PRN (03:46)
[2022-02-19] MEDS: morphine INJ 4 MG/ML 1 ML (VIAL/SYRINGE) IV PRN ×3 (05:31→21:22)
[2022-02-19] MEDS: ONDANSETRON 4 MG/2 ML (SDV) Z0FRAN IV PRN ×3 (05:31→20:03)
[2022-02-19 06:29] LABS: ALBUMIN 4.2 GM/DL (3.2-4.5); CREATININE SERUM 1.09 MG/DL (0.60-1.30); POTASSIUM 3.9 MMOL/L (3.6-5.0); TOTAL PROTEIN 7.6 GM/DL (6.4-8.2)
--- NOTE | 2022-02-19 06:56 | Progress Note - Hospitalist ---
Subjective HPI/CC On Admission Date Seen by Provider: Feb 19, 2022 Time Seen by Provider: 11:00 Subjective/Events-last exam Patient about the same Ice chips will start today N/V continues Pain improved Review of Systems Gastrointestinal: Nausea, Vomiting Objective Exam Vital Signs Vital Signs Date Time Temp Pulse Resp B/P (MAP) Pulse Ox O2 Delivery O2 Flow Rate FiO2 02/19/22 15:47 36.3 74 18 111/66 (81) 97 Room Air Capillary Refill : NONE General Appearance: No Apparent Distress, WD/WN Respiratory: Lungs Clear Cardiovascular: Regular Rate, Rhythm Neurologic/Psychiatric: Alert, Oriented x3, No Motor/Sensory Deficits, Normal Mood/Affect Results/Procedures Lab Laboratory Tests 02/19/22 05:45 Patient resulted labs reviewed. Assessment/Plan Assessment and Plan Assess & Plan/Chief Complaint Assessment: Recurrent N/V Recurrent pancreatitis Obesity Plan: Monitor pain N/V IVF Ice chips SULAIMAN BILLS DO Feb 19, 2022 06:56
[2022-02-19 07:45] VITALS: BP 130/79
[2022-02-19] MEDS: PROMETHAZINE INJ 25 MG/ML (PHENERGAN) AMP IM PRN (07:54)
[2022-02-19] MEDS: HYDROcodone/APAP 5 MG/325 MG (LORTAB) TAB PO PRN (07:55)
[2022-02-19] MEDS: HEParin (CENTRAL IV FLUSH) 500 UNIT/5 ML SYR IV SCH ×2 (07:56→19:07)
[2022-02-19] MEDS ORDERED: MIDAZOLAM 2 MG/2 ML (VERSED) VIAL ONE (09:47)
[2022-02-19] MEDS ORDERED: PROPOFOL INJECTION 0 ML IV ONE (09:48)
[2022-02-19 11:30] VITALS: BP 121/80
[2022-02-19 15:47] VITALS: BP 111/66
[2022-02-19] MEDS: rOPINIRole 1 MG (REQUIP) TABLET PO SCH (19:22)
[2022-02-20 00:36] VITALS: BP 129/74
[2022-02-20] MEDS: ONDANSETRON 4 MG/2 ML (SDV) Z0FRAN IV PRN ×3 (01:39→16:13)
[2022-02-20] MEDS: PROMETHAZINE INJ 25 MG/ML (PHENERGAN) AMP IVP PRN ×4 (04:51→21:41)
[2022-02-20] MEDS: morphine INJ 4 MG/ML 1 ML (VIAL/SYRINGE) IV PRN ×4 (04:52→21:41)
[2022-02-20] MEDS: LACTATED RINGERS 1,000 ML IV SCH ×4 (05:54→18:50)
[2022-02-20] MEDS: HEParin (CENTRAL IV FLUSH) 500 UNIT/5 ML SYR IV SCH (05:54)
--- NOTE | 2022-02-20 07:02 | Progress Note - Hospitalist ---
Subjective HPI/CC On Admission Date Seen by Provider: Feb 20, 2022 Time Seen by Provider: 10:00 Subjective/Events-last exam Abdominal pain still continues PICC line will be placed Ports placed in the past have "twisted" x 2 Dr Roman will be consulted due to EGD at last week Review of Systems General: Fatigue, Malaise Objective Exam Vital Signs Vital Signs Date Time Temp Pulse Resp B/P (MAP) Pulse Ox O2 Delivery O2 Flow Rate FiO2 02/20/22 15:09 36.2 71 20 130/76 (94) 97 Room Air Capillary Refill : NONE General Appearance: No Apparent Distress, WD/WN, Chronically ill Respiratory: Lungs Clear, Normal Breath Sounds Cardiovascular: Regular Rate, Rhythm Neurologic/Psychiatric: Alert, Oriented x3, No Motor/Sensory Deficits, Normal Mood/Affect Results/Procedures Lab Laboratory Tests 02/20/22 09:30 Patient resulted labs reviewed. Assessment/Plan Assessment and Plan Assess & Plan/Chief Complaint Assessment: Recurrent N/V Recurrent pancreatitis Obesity Plan: Monitor pain N/V IVF Ice chips PICC Dr Roman consult SULAIMAN BILLS DO Feb 20, 2022 07:02
[2022-02-20 08:04] VITALS: BP 118/72
[2022-02-20 09:39] LABS: BASOPHILS % (AUTO) 0 % (0-10); EOSINOPHILS # (AUTO) 0.2 10^3/uL (0.0-0.3); EOSINOPHILS % (AUTO) 3 % (0-10); HEMATOCRIT 40 % (35-52); HEMOGLOBIN 12.7 g/dL (11.5-16.0); LYMPHOCYTES # (AUTO) 3.1 10^3/uL (1.0-4.0); LYMPHOCYTES % (AUTO) 38 % (12-44); MEAN CORPUSCULAR HEMOGLOBIN 27 pg (25-34); MEAN CORPUSCULAR HGB CONC 32 g/dL (32-36); MEAN CORPUSCULAR VOLUME 84 fL (80-99); MEAN PLATELET VOLUME 9.2 fL (9.0-12.2); MONOCYTES # (AUTO) 0.4 10^3/uL (0.0-1.0); MONOCYTES % (AUTO) 5 % (0-12); NEUTROPHILS # (AUTO) 4.6 10^3/uL (1.8-7.8); NEUTROPHILS % (AUTO) 55 % (42-75); PLATELET COUNT 237 10^3/uL (130-400); WHITE BLOOD COUNT 8.4 10^3/uL (4.3-11.0)
[2022-02-20 10:09] LABS: ALBUMIN 4.1 GM/DL (3.2-4.5); BILIRUBIN,TOTAL 1.1 MG/DL (0.1-1.0); CALCIUM 9.7 MG/DL (8.5-10.1); CREATININE SERUM 1.13 MG/DL (0.60-1.30); POTASSIUM 3.8 MMOL/L (3.6-5.0); TOTAL PROTEIN 7.8 GM/DL (6.4-8.2)
[2022-02-20] MEDS ORDERED: BISACODYL 10 MG SUPP (DULCOLAX) PR PRN (10:15)
[2022-02-20] MEDS ORDERED: BISACODYL 10 MG SUPP (DULCOLAX) PR NR (10:30)
--- NOTE | 2022-02-20 11:24 | Consultation - Surgery ---
MARTITA PAL 02/20/22 1124: History of Present Illness History of Present Illness Patient Consulted On(tamiko/time) 02/20/22 11:19 Allergies and Home Medications Allergies Coded Allergies: fentanyl (Verified Allergy, Unknown, 01/24/22) meperidine (Verified Allergy, Unknown, 01/24/22) penicillin G (Verified Allergy, Unknown, 01/24/22) prochlorperazine (Verified Allergy, Unknown, 01/24/22) trimethobenzamide (Unverified Allergy, Unknown, 01/24/22) vancomycin (Verified Adverse Reaction, Intermediate, severe itching, 01/24/22) Patient Home Medication List Acetaminophen (Tylenol Extra Strength) 500 Mg Tablet, 1,000 MG PO Q8H PRN for PAIN-MILD (1-4), (Reported) Entered as Reported by: EMILIO SHEPPARD on 10/26/19 0812 Last Action: Reviewed Albuterol Sulfate (Ventolin Hfa) 90 Mcg Hfa.aer.ad, 2 PUFF INH Q6H PRN for SHOR TNESS OF BREATH, (Reported) Entered as Reported by: CASSANDRA CHOPRA on 02/15/221214 Last Action: Reviewed Albuterol Sulfate (Albuterol Sulfate) 2.5 Mg/3 Ml (0.083 %) Vial.neb, 3 ML PO Q8H PRN for SHORTNESS OF BREATH, (Reported) Entered as Reported by: CASSANDRA CHOPRA on 02/15/221214 Last Action: Reviewed Atorvastatin Calcium (Atorvastatin Calcium) 40 Mg Tablet, 40 MG PO HS, (Reported) Entered as Reported by: CASSANDRA CHOPRA on 02/15/221214 Last Action: Reviewed Benzonatate (Benzonatate) 100 Mg Capsule, 100 MG PO TID PRN for COUGH, (Reported) Entered as Reported by: CASSANDRA CHOPRA on 02/15/221214 Last Action: Reviewed Cetirizine HCl (Cetirizine HCl) 10 Mg Tablet, 10 MG PO HS, (Reported) Entered as Reported by: CASSANDRA CHOPRA on 02/15/221214 Last Action: Reviewed Cyanocobalamin (Cyanocobalamin Injection) 1,000 Mcg/Ml Inj, 1,000 MCG IM MO NTHLY, (Reported) Entered as Reported by: GRIFFIN ORTEGA on 07/24/21 1145 Last Action: Reviewed Cyclobenzaprine HCl (Cyclobenzaprine HCl) 10 Mg Tablet, 10 MG PO HS PRN for MUSCLE SPASMS, (Reported) Entered as Reported by: CASSANDRA CHOPRA on 02/15/221214 Last Action: Reviewed Diphenhydramine HCl (Benadryl) 25 Mg Capsule, 50 MG PO HS, (Reported) Entered as Reported by: EMILIO SHEPPARD on 10/26/19811 Last Action: Reviewed Gabapentin (Gabapentin) 100 Mg Capsule, 100 MG PO HS PRN for NERVE PAIN, (Reported) Entered as Reported by: CASSANDRA CHOPRA on 02/15/221218 Last Action: Reviewed Hydrocodone/Acetaminophen (Hydrocodone-Acetamin 5-325 mg) 5 Mg-325 Mg Tablet, 1 TAB PO Q6H PRN for PAIN-MODERATE (5-7), (Reported) Entered as Reported by: CASSANDRA CHOPRA on 02/15/221214 Last Action: Reviewed Lipase/Protease/Amylase (Creon Dr 24,000 Units Capsule) 24-76-120K Capsule.dr, 1 EA PO HS, (Reported) Entered as Reported by: CASSANDRA CHOPRA on 02/15/221214 Last Action: Reviewed Metoclopramide HCl (Metoclopramide HCl) 10 Mg Tablet, 10 MG PO Q6H PRN for NAUSEA/VOMITING-3RD LINE, (Reported) Entered as Reported by: CASSANDRA CHOPRA on 02/15/221214 Last Action: Reviewed Ondansetron (Ondansetron Odt) 8 Mg Tab.rapdis, 8 MG PO Q8H PRN for NAUSEA/VOMITING-1ST LINE, (Reported) Entered as Reported by: EMILIO SHEPPARD on 10/26/19811 Last Action: Reviewed Pregabalin (Pregabalin) 75 Mg Capsule, 75 MG PO BID PRN for NERVE PAIN, (Reported) Entered as Reported by: CASSANDRA CHOPRA on 02/15/221214 Last Action: Reviewed Promethazine HCl (Promethazine Tablet) 25 Mg Tablet, 25 MG PO Q6H PRN for NAUSEA/VOMITING-2ND LINE, (Reported) Entered as Reported by: LEX HOSKINS on 12/07/20 0916 Last Action: Reviewed Ropinirole HCl (Ropinirole HCl) 4 Mg Tablet, 4 MG PO HS, (Reported) Entered as Reported by: LEX HOSKINS on 06/28/17 1010 Last Action: Converted Semaglutide (Ozempic) 0.25 Mg/0.2 Ml Pen.injctr, 0.5 MG SQ MON, (Reported) Entered as Reported by: LIBBY SINGH on 01/24/22 1452 Last Action: Reviewed Sitagliptin Phos/Metformin HCl (Janumet Xr 50-1,000 mg Tablet) 50 Mg-1,000 Mg Tbmp.24hr, 2 TAB PO HS, (Reported) Entered as Reported by: LEX HOSKINS on 12/07/20 0916 Last Action: Reviewed Past Vntnzsj-Cehxpu-Thpcvy Hx Patient Social History Smoking Status: Never a Smoker Type Used: Cigarettes 2nd Hand Smoke Exposure: No Recent Hopitalizations: No Alcohol Use?: No Have you traveled recently?: No Immunizations Up To Date Tetanus Booster (TDap): Less than 5yrs PED Vaccines UTD: No Date of Pneumonia Vaccine: May 17, 2012 Date of Influenza Vaccine: Jul 03, 2012 Seasonal Allergies Seasonal Allergies: No Surgeries History of Surgeries: Yes (hernia repair x2, knee scopes, port placement) Surgeries: Adenoidectomy, Appendectomy, Gallbladder, Hysterectomy, Nephrectomy, Orthopedic, Tonsillectomy Respiratory History of Respiratory Disorde: Yes Respiratory Disorders: Asthma Cardiovascular History of Cardiac Disorders: Yes Cardiac Disorders: Hypertension Neurological History of Neurological Disord: Yes Neurological Disorders: Headaches /Migraines Reproductive System Hx Reproductive Disorders: Yes (HX ENDOMETRIOSIS ) Sexually Transmitted Disease: No HIV/AIDS: No 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: 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 [employer] History: Hysterectomy Genitourinary History of Genitourinary Disor: Yes (S/P LEFT NEPHRECTOMY) Genitourinary Disorders: UTI-Chronic Gastrointestinal History of Gastrointestinal Di: Yes (CHRONIC ABD PAIN/N/V./D) Gastrointestinal Disorders: Abdominal Hernia, Gastroesophageal Reflux, Liver Disease/Jaundice, Obstructive Bowel, Pancreatitis, Chronic Diarrhea, Polyps Musculoskeletal History of Musculoskeletal Dis: Yes (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) Musculoskeletal Disorders: Chronic Back Pain Endocrine History of Endocrine Disorders: Yes (OBESITY) Endocrine Disorders: Diabetes, Non-Insulin dep HEENT History of HEENT Disorders: No Loss of Vision: Denies Hearing Impairment: Denies Cancer History of Cancer: Yes Cancer: Kidney Psychosocial History of Psychiatric Problem: Yes Behavioral Health Disorders: Anxiety, Depression Integumentary History of Skin or Integumenta: No Skin/Integumentary Disorders: Herpes Blood Transfusions History of Blood Disorders: No Adverse Reaction to a Blood Tr: No (N/A) Family Medical History Significant Family History: No Pertinent Family Hx, Cancer, Diabetes, Hypertens ion Family Medial History: Cardiovascular disease 19 FATHER Completed stroke 19 FATHER Diabetes mellitus 19 FATHER Hypercholesterolemia 19 FATHER 19 MOTHER Hypertension 19 FATHER 19 MOTHER Neoplasm 19 MOTHER Psychosocial problem 19 FATHER 19 MOTHER Physical Exam-General Problems Physical Exam Vital Signs Vital Signs - First Documented 02/14/22 21:48 Temp 36.7 Pulse 89 Resp 20 B/P (MAP) 143/93 (110) Pulse Ox 96 O2 Delivery Room Air Capillary Refill : NONE Data Review Labs Laboratory Tests 02/20/22 08:40: Glucometer 82 02/20/22 09:30: White Blood Count 8.4, Red Blood Count 4.74, Hemoglobin 12.7, Hematocrit 40, Mean Corpuscular Volume 84, Mean Corpuscular Hemoglobin 27, Mean Corpuscular Hem oglobin Concent 32, Red Cell Distribution Width 13.7, Platelet Count 237, Mean Platelet Volume 9.2, Immature Granulocyte % (Auto) 0, Neutrophils (%) (Auto) 55, Lymphocytes (%) (Auto) 38, Monocytes (%) (Auto) 5, Eosinophils (%) (Auto) 3, Basophils (%) (Auto) 0, Neutrophils # (Auto) 4.6, Lymphocytes # (Auto) 3.1, Monocytes # (Auto) 0.4, Eosinophils # (Auto) 0.2, Basophils # (Auto) 0.0, Immature Granulocyte # (Auto) 0.0, Sodium Level 141, Potassium Level 3.8, Chloride Level 103, Carbon Dioxide Level 26, Anion Gap 12, Blood Urea Nitrogen 9, Creatinine 1.13, Estimat Glomerular Filtration Rate 64, BUN/Creatinine Ratio 8, Glucose Level 102, Calcium Level 9.7, Corrected Calcium 9.6, Total Bilirubin 1.1H, Aspartate Amino Transf (AST/SGOT) 50H, Alanine Aminotransferase (ALT/SGPT) 63H, Alkaline Phosphatase 99, Total Protein 7.8, Albumin 4.1, Lipase 36 LINDSEY MARROQUIN DO 02/26/22 1447: History of Present Illness History of Present Illness Time Seen by Provider: 00:00 (Pt not seen) History of Present Illness Pt not seen Allergies and Home Medications Allergies Coded Allergies: fentanyl (Verified Allergy, Unknown, 01/24/22) meperidine (Verified Allergy, Unknown, 01/24/22) penicillin G (Verified Allergy, Unknown, 01/24/22) prochlorperazine (Verified Allergy, Unknown, 01/24/22) trimethobenzamide (Unverified Allergy, Unknown, 01/24/22) vancomycin (Verified Adverse Reaction, Intermediate, severe itching, 01/24/22) Patient Home Medication List Home Medication List Reviewed: No Acetaminophen (Tylenol Extra Strength) 500 Mg Tablet, 1,000 MG PO Q8H PRN for PAIN-MILD (1-4), (Reported) Entered as Reported by: EMILIO SHEPPARD on 10/26/19 0812 Last Action: Reviewed Albuterol Sulfate (Ventolin Hfa) 90 Mcg Hfa.aer.ad, 2 PUFF INH Q6H PRN for SHORTNESS OF BREATH, (Reported) Entered as Reported by: CASSANDRA CHOPRA on 02/15/221214 Last Action: Reviewed Albuterol Sulfate (Albuterol Sulfate) 2.5 Mg/3 Ml (0.083 %) Vial.neb, 3 ML PO Q8H PRN for SHORTNESS OF BREATH, (Reported) Entered as Reported by: CASSANDRA CHOPRA on 02/15/221214 Last Action: Reviewed Atorvastatin Calcium (Atorvastatin Calcium) 40 Mg Tablet, 40 MG PO HS, (Reported) Entered as Reported by: CASSANDRA CHOPRA on 02/15/221214 Last Action: Reviewed Benzonatate (Benzonatate) 100 Mg Capsule, 100 MG PO TID PRN for COUGH, (Reported) Entered as Reported by: CASSANDRA CHOPRA on 02/15/221214 Last Action: Reviewed Cetirizine HCl (Cetirizine HCl) 10 Mg Tablet, 10 MG PO HS, (Reported) Entered as Reported by: CASSANDRA CHOPRA on 02/15/221214 Last Action: Reviewed Cyanocobalamin (Cyanocobalamin Injection) 1,000 Mcg/Ml Inj, 1,000 MCG IM MONTHLY, (Reported) Entered as Reported by: GRIFFIN ORTEGA on 07/24/21 1145 Last Action: Reviewed Cyclobenzaprine HCl (Cyclobenzaprine HCl) 10 Mg Tablet, 10 MG PO HS PRN for MUSCLE SPASMS, (Reported) Entered as Reported by: CASSANDRA CHOPRA on 02/15/221214 Last Action: Reviewed Diphenhydramine HCl (Benadryl) 25 Mg Capsule, 50 MG PO HS, (Reported) Entered as Reported by: EMILIO SHEPPARD on 10/26/19811 Last Action: Reviewed Gabapentin (Gabapentin) 100 Mg Capsule, 100 MG PO HS PRN for NERVE PAIN, (Reported) Entered as Reported by: CASSANDRA CHOPRA on 02/15/221218 Last Action: Reviewed Hydrocodone/Acetaminophen (Hydrocodone-Acetamin 5-325 mg) 5 Mg-325 Mg Tablet, 1 TAB PO Q6H PRN for PAIN-MODERATE (5-7), (Reported) Entered as Reported by: CASSANDRA CHOPRA on 02/15/221214 Last Action: Reviewed Lipase/Protease/Amylase (Creon Dr 24,000 Units Capsule) 24-76-120K Capsule.dr, 1 EA PO HS, (Reported) Entered as Reported by: CASSANDRA CHOPRA on 02/15/221214 Last Action: Reviewed Metoclopramide HCl (Metoclopramide HCl) 10 Mg Tablet, 10 MG PO Q6H PRN for NAUSE A/VOMITING-3RD LINE, (Reported) Entered as Reported by: CASSANDRA CHOPRA on 02/15/221214 Last Action: Reviewed Ondansetron (Ondansetron Odt) 8 Mg Tab.rapdis, 8 MG PO Q8H PRN for NAUSEA/VOMITING-1ST LINE, (Reported) Entered as Reported by: EMILIO SHEPPARD on 10/26/19811 Last Action: Reviewed Pregabalin (Pregabalin) 75 Mg Capsule, 75 MG PO BID PRN for NERVE PAIN, (Reported) Entered as Reported by: CASSANDRA CHOPRA on 02/15/221214 Last Action: Reviewed Promethazine HCl (Promethazine Tablet) 25 Mg Tablet, 25 MG PO Q6H PRN for NA USEA/VOMITING-2ND LINE, (Reported) Entered as Reported by: LEX HOSKINS on 12/07/20 0916 Last Action: Reviewed Ropinirole HCl (Ropinirole HCl) 4 Mg Tablet, 4 MG PO HS, (Reported) Entered as Reported by: LEX HOSKINS on 06/28/17 1010 Last Action: Converted Semaglutide (Ozempic) 0.25 Mg/0.2 Ml Pen.injctr, 0.5 MG SQ MON, (Reported) Entered as Reported by: LIBBY SINGH on 01/24/22 1452 Last Action: Reviewed Sitagliptin Phos/Metformin HCl (Janumet Xr 50-1,000 mg Tablet) 50 Mg-1,000 Mg Tbmp.24hr, 2 TAB PO HS, (Reported) Entered as Reported by: LEX HOSKINS on 12/07/20 0916 Last Action: Reviewed Past Gwjriir-Obpgli-Wbyipf Hx Family Medical History Family Medial History: Cardiovascular disease 19 FATHER Completed stroke 19 FATHER Diabetes mellitus 19 FATHER Hypercholesterolemia 19 FATHER 19 MOTHER Hypertension 19 FATHER 19 MOTHER Neoplasm 19 MOTHER Psychosocial problem 19 FATHER 19 MOTHER Assessment/Plan Assessment/Plan Assessment/Plan Pt not seen Supervisory-Addendum Brief Verification & Attestation Participated in pt care: other (pt not seen this day) Personally performed: other (pt not seen this day) Care discussed with: other (pt not seen this day) Procedures: n/a pt not seen this day MARTITA PAL Feb 20, 2022 11:24 LINDSEY MARROQUIN DO Feb 26, 2022 14:47
[2022-02-20] MEDS: ENOXAPARIN 40 MG/0.4 ML (LOVENOX) SYR SC SCH ×2 (13:22→21:40)
[2022-02-20 15:09] VITALS: BP 130/76
--- NOTE | 2022-02-20 17:18 | Diagnostic Imaging Report ---
INDICATION: Abdominal pain, nausea COMPARISON: 02/18/2022 and 02/14/2022 TECHNIQUE: 3 radiographs of the abdomen dated 02/20/2022. FINDINGS: The visualized lung bases are clear. Surgical clips are identified within the right upper quadrant of the abdomen as well as within the right pelvis. Chain sutures noted overlying the left mid abdomen. Gas and stool is noted throughout the colon, including extending to the pelvis. No abnormally dilated loops of small bowel. No differential air-fluid levels. No free air. No suspicious calcifications overlying the right renal shadow. No acute osseous abnormality. The liver appears enlarged. IMPRESSION: Postsurgical changes without bowel obstruction or free air. Hepatomegaly. Dictated by: Dictated on workstation # [id number]
[2022-02-20] MEDS: rOPINIRole 1 MG (REQUIP) TABLET PO SCH (21:40)
[2022-02-21 00:10] VITALS: BP 140/67
[2022-02-21] MEDS: ONDANSETRON 4 MG/2 ML (SDV) Z0FRAN IV PRN ×4 (00:15→19:31)
[2022-02-21] MEDS: PROMETHAZINE INJ 25 MG/ML (PHENERGAN) AMP IVP PRN ×5 (01:43→22:06)
[2022-02-21] MEDS: morphine INJ 4 MG/ML 1 ML (VIAL/SYRINGE) IV PRN ×6 (01:43→19:31)
[2022-02-21] MEDS: LACTATED RINGERS 1,000 ML IV SCH ×3 (01:51→22:09)
[2022-02-21 07:38] VITALS: BP 136/79
[2022-02-21] MEDS: ENOXAPARIN 40 MG/0.4 ML (LOVENOX) SYR SC SCH ×2 (09:22→22:06)
[2022-02-21] MEDS: diphenhydrAMINE 50 MG/ML INJ (BENADRYL) IV PRN (11:41)
--- NOTE | 2022-02-21 15:02 | Progress Note - Hospitalist ---
BENITO PANDYA 02/21/22 1502: Subjective HPI/CC On Admission Date Seen by Provider: Feb 21, 2022 Time Seen by Provider: 14:57 Subjective/Events-last exam Abdominal pain is still present/ not improving PICC line was placed No improvement in nausea or vomiting Labs monitored- lipase of 36 ICE chips tolerated well Objective Exam Vital Signs Vital Signs Date Time Temp Pulse Resp B/P (MAP) Pulse Ox O2 Delivery O2 Flow Rate FiO2 02/21/22 08:09 97 Room Air 02/21/22 07:38 36.1 73 18 136/79 (98) Capillary Refill : NONE General Appearance: Mild Distress, Obese HEENT: PERRL/EOMI; No Scleral Icterus (L), No Scleral Icterus (R) Neck: Full Range of Motion, Normal Inspection, Non Tender Respiratory: Chest Non Tender, Lungs Clear, Normal Breath Sounds Cardiovascular: Regular Rate, Rhythm, No Edema, No Gallop Gastrointestinal: No Non Tender; Soft Rectal: Deferred Back: Normal Inspection; No Decreased Range of Motion Extremity: Normal Capillary Refill, Normal Inspection, Normal Range of Motion Neurologic/Psychiatric: Alert, Oriented x3 Skin: Normal Color, Warm/Dry Lymphatic: No Adenopathy Results/Procedures Lab Patient resulted labs reviewed. Assessment/Plan Assessment and Plan Assess & Plan/Chief Complaint Assessment: Recurrent nausea and vomiting Recurrent pancreatitis Obesity Plan: Monitor N/V Monitor pain Continue IVF Continue Ice chips Consult surgery SILVANA BILLS DO 02/21/222111: Subjective Subjective/Events-last exam Pt is still having N/V Dr. Roman was consulted KUB was no acute abnormality IV fluid continues Pt receiving multiple antiemetics Supervisory-Addendum Brief Verification & Attestation Participated in pt care: history, MDM, physical Personally performed: exam, history, MDM, supervision of care Care discussed with: Medical Student Procedures: n/a Results interpretation: Verified all documentation Verification and Attestation of Medical Student E/M Service A medical student performed and documented this service in my presence. I re viewed and verified all information documented by the medical student and made modifications to such information, when appropriate. I personally performed the physical exam and medical decision making. Silvana Bills Feb 21, 2022,21:12 BENITO PANDYA Feb 21, 2022 15:02 SILVANA BILLS DO Feb 21, 2022 21:12
[2022-02-21 15:24] VITALS: BP 153/82
[2022-02-21] MEDS: rOPINIRole 1 MG (REQUIP) TABLET PO SCH (19:29)
[2022-02-22] MEDS: morphine INJ 4 MG/ML 1 ML (VIAL/SYRINGE) IV PRN ×5 (00:06→21:32)
[2022-02-22 00:25] VITALS: BP 133/79
[2022-02-22] MEDS: ONDANSETRON 4 MG/2 ML (SDV) Z0FRAN IV PRN ×3 (04:22→16:30)
[2022-02-22] MEDS: LACTATED RINGERS 1,000 ML IV SCH ×3 (04:23→18:22)
[2022-02-22 07:52] VITALS: BP 132/88
[2022-02-22] MEDS: PROMETHAZINE INJ 25 MG/ML (PHENERGAN) AMP IVP PRN ×4 (07:58→22:41)
[2022-02-22] MEDS: ENOXAPARIN 40 MG/0.4 ML (LOVENOX) SYR SC SCH ×2 (10:48→21:27)
[2022-02-22 12:27] LABS: BASOPHILS % (AUTO) 0 % (0-10); EOSINOPHILS # (AUTO) 0.2 10^3/uL (0.0-0.3); EOSINOPHILS % (AUTO) 3 % (0-10); HEMATOCRIT 34 % (35-52); HEMOGLOBIN 10.9 g/dL (11.5-16.0); LYMPHOCYTES # (AUTO) 2.5 10^3/uL (1.0-4.0); LYMPHOCYTES % (AUTO) 48 % (12-44); MEAN CORPUSCULAR HEMOGLOBIN 27 pg (25-34); MEAN CORPUSCULAR HGB CONC 32 g/dL (32-36); MEAN CORPUSCULAR VOLUME 84 fL (80-99); MEAN PLATELET VOLUME 9.8 fL (9.0-12.2); MONOCYTES # (AUTO) 0.3 10^3/uL (0.0-1.0); MONOCYTES % (AUTO) 6 % (0-12); NEUTROPHILS # (AUTO) 2.2 10^3/uL (1.8-7.8); NEUTROPHILS % (AUTO) 43 % (42-75); PLATELET COUNT 208 10^3/uL (130-400); WHITE BLOOD COUNT 5.1 10^3/uL (4.3-11.0)
[2022-02-22 12:53] LABS: ALBUMIN 3.6 GM/DL (3.2-4.5); BILIRUBIN,TOTAL 0.8 MG/DL (0.1-1.0); CALCIUM 9.3 MG/DL (8.5-10.1); CREATININE SERUM 1.01 MG/DL (0.60-1.30); POTASSIUM 3.5 MMOL/L (3.6-5.0); TOTAL PROTEIN 6.6 GM/DL (6.4-8.2)
[2022-02-22] MEDS: inSUlin ASPART (NovoLOG) 1 UNIT/0.01 ML (CHARGE PER UNIT) SC SCH ×2 (13:09→17:52)
[2022-02-22 13:57] LABS: ERYTHROCYTE SEDIMENTATION RATE 33 MM/HR (0-20)
[2022-02-22 15:10] VITALS: BP 115/68
[2022-02-22 15:17] VITALS: BP 116/72
[2022-02-22] MEDS ORDERED: inSUlin ASPART (NovoLOG) 1 UNIT/0.01 ML (CHARGE PER UNIT) SC SCH (16:00)
--- NOTE | 2022-02-22 16:33 | Progress Note - Hospitalist ---
BENITO PANDYA 02/22/22 1633: Subjective HPI/CC On Admission Date Seen by Provider: Feb 22, 2022 Time Seen by Provider: 16:26 Subjective/Events-last exam Patient's nausea and vomiting have not improved since yesterday. Vomited 3x last night Patient is complaining of dry mouth Epigastric pain has not improved since yesterday still painful She is no longer tolerating ice chips Mother is in room today concerned she has not had anything to eat since shes been here Mother also brought glucometer for concerns of her blood glucose levels being elevated. Patient also states she spoke with someone in that did her last EGD and said they would be willing to take her as a transfer if we so wish. Labs reviewed Objective Exam Vital Signs Vital Signs Date Time Temp Pulse Resp B/P (MAP) Pulse Ox O2 Delivery O2 Flow Rate FiO2 02/22/22 15:17 36.7 73 20 116/72 (87) 93 Room Air Capillary Refill : NONE General Appearance: WD/WN, Mild Distress, Obese HEENT: PERRL/EOMI; No Scleral Icterus (L), No Scleral Icterus (R) Neck: Full Range of Motion, Normal Inspection, Non Tender Respiratory: Chest Non Tender, Lungs Clear, Normal Breath Sounds Cardiovascular: Regular Rate, Rhythm, No Edema, No Gallop, No JVD Gastrointestinal: No Pulsatile Mass; No Non Tender; Other (Epigastric pain) Rectal: Deferred Back: Normal Inspection, No CVA Tenderness Extremity: Normal Capillary Refill, Normal Inspection, Normal Range of Motion Neurologic/Psychiatric: Alert, Oriented x3 Skin: Normal Color, Warm/Dry Lymphatic: No Adenopathy Results/Procedures Lab Laboratory Tests 02/22/22 12:15 Patient resulted labs reviewed. Assessment/Plan Assessment and Plan Assess & Plan/Chief Complaint Assessment: Recurrent nausea and vomiting Recurrent pancreatitis Obesity Diabetes Plan: Monitor N/V Monitor pain Continue IVF Continue Ice chips Consult surgery Continue with antiemetics SILVANA BILLS DO 02/23/22 0544: Subjective Subjective/Events-last exam Consulting Dr Sanchez Reviewed 2-5 ER visits per month Chronic issues Supervisory-Addendum Brief Verification & Attestation Participated in pt care: history, MDM, physical Personally performed: exam, history, MDM, supervision of care Care discussed with: Medical Student Procedures: n/a Results interpretation: Verified all documentation Verification and Attestation of Medical Student E/M Service A medical student performed and documented this service in my presence. I reviewed and verified all information documented by the medical student and made modifications to such information, when appropriate. I personally performed the physical exam and medical decision making. Silvana Bills, Feb 23, 2022,05:42 BENITO PANDYA Feb 22, 2022 16:33 SILVANA BILLS DO Feb 23, 2022 05:44
--- NOTE | 2022-02-22 17:18 | Consultation - Surgery ---
MARTITA PAL 02/22/22 1718: History of Present Illness History of Present Illness Patient Consulted On(tamiko/time) 02/22/22 17:12 Date Seen by Provider: Feb 22, 2022 Time Seen by Provider: 17:15 History of Present Illness We were asked by Dr. Alfonso to consult on this patient. 36yo female that has chief complaint of nausea and vomiting. This began last week after she had an EGD and ERCP done at . The day after the procedure she began getting nausea every time she ate or drank anything and had emesis multiple times. She described the emesis as clear and sometimes green. She also has constant epigastric pain rated 9/10 that feels like "a knife stabbing through to her back". Nothing seems to make it better, eating or drinking anything makes it worse. She also has associated back and rib pain when taking a deep breath. Additionally the patient is urinating less frequently and has reportedly not had a BM since last Saturday. Allergies and Home Medications Allergies Coded Allergies: fentanyl (Verified Allergy, Unknown, 01/24/22) meperidine (Verified Allergy, Unknown, 01/24/22) penicillin G (Verified Allergy, Unknown, 01/24/22) prochlorperazine (Verified Allergy, Unknown, 01/24/22) trimethobenzamide (Unverified Allergy, Unknown, 01/24/22) vancomycin (Verified Adverse Reaction, Intermediate, severe itching, 01/24/22) Patient Home Medication List Acetaminophen (Tylenol Extra Strength) 500 Mg Tablet, 1,000 MG PO Q8H PRN for PAIN-MILD (1-4), (Reported) Entered as Reported by: EMILIO SHEPPARD on 10/26/19 0812 Last Action: Reviewed Albuterol Sulfate (Ventolin Hfa) 90 Mcg Hfa.aer.ad, 2 PUFF INH Q6H PRN for SHORTNESS OF BREATH, (Reported) Entered as Reported by: CASSANDRA CHOPRA on 02/15/22 1215 Last Action: Reviewed Albuterol Sulfate (Albuterol Sulfate) 2.5 Mg/3 Ml (0.083 %) Vial.neb, 3 ML PO Q8H PRN for SHORTNESS OF BREATH, (Reported) Entered as Reported by: CASSANDRA CHOPRA on 02/15/22 1215 Last Action: Reviewed Atorvastatin Calcium (Atorvastatin Calcium) 40 Mg Tablet, 40 MG PO HS, (Reported) Entered as Reported by: CASSANDRA CHOPRA on 02/15/221214 Last Action: Reviewed Benzonatate (Benzonatate) 100 Mg Capsule, 100 MG PO TID PRN for COUGH, (Reported) Entered as Reported by: CASSANDRA CHOPRA on 02/15/221214 Last Action: Reviewed Cetirizine HCl (Cetirizine HCl) 10 Mg Tablet, 10 MG PO HS, (Reported) Entered as Reported by: CASSANDRA CHOPRA on 02/15/221214 Last Action: Reviewed Cyanocobalamin (Cyanocobalamin Injection) 1,000 Mcg/Ml Inj, 1,000 MCG IM MONTHLY, (Reported) Entered as Reported by: GRIFFIN ORTEGA on 07/24/21 114 Last Action: Reviewed Cyclobenzaprine HCl (Cyclobenzaprine HCl) 10 Mg Tablet, 10 MG PO HS PRN for MUSCLE SPASMS, (Reported) Entered as Reported by: CASSANDRA CHOPRA on 02/15/221214 Last Action: Reviewed Diphenhydramine HCl (Benadryl) 25 Mg Capsule, 50 MG PO HS, (Reported) Entered as Reported by: EMILIO SHEPPARD on 10/26/19 0812 Last Action: Reviewed Gabapentin (Gabapentin) 100 Mg Capsule, 100 MG PO HS PRN for NERVE PAIN, (Reported) Entered as Reported by: CASSANDRA CHOPRA on 02/15/221218 Last Action: Reviewed Hydrocodone/Acetaminophen (Hydrocodone-Acetamin 5-325 mg) 5 Mg-325 Mg Tablet, 1 TAB PO Q6H PRN for PAIN-MODERATE (5-7), (Reported) Entered as Reported by: CASSANDRA CHOPRA on 02/15/221214 Last Action: Reviewed Lipase/Protease/Amylase (Creon Dr 24,000 Units Capsule) 24-76-120K Capsule., 1 EA PO HS, (Reported) Entered as Reported by: CASSANDRA CHOPRA on 02/15/221214 Last Action: Reviewed Metoclopramide HCl (Metoclopramide HCl) 10 Mg Tablet, 10 MG PO Q6H PRN for NAUSEA/VOMITING-3RD LINE, (Reported) Entered as Reported by: CASSANDRA COHPRA on 02/15/221214 Last Action: Reviewed Ondansetron (Ondansetron Odt) 8 Mg Tab.rapdis, 8 MG PO Q8H PRN for NAUSEA/VOMITING-1ST LINE, (Reported) Entered as Reported by: EMILIO SHEPPARD on 10/26/19 0812 Last Action: Reviewed Pregabalin (Pregabalin) 75 Mg Capsule, 75 MG PO BID PRN for NERVE PAIN, (Reported) Entered as Reported by: CASSANDRA CHOPRA on 02/15/22 1215 Last Action: Reviewed Promethazine HCl (Promethazine Tablet) 25 Mg Tablet, 25 MG PO Q6H PRN for NAUSEA/VOMITING-2ND LINE, (Reported) Entered as Reported by: LEX HOSKINS on 12/07/20915 Last Action: Reviewed Ropinirole HCl (Ropinirole HCl) 4 Mg Tablet, 4 MG PO HS, (Reported) Entered as Reported by: LEX HOSKINS on 06/28/17 1010 Last Action: Converted Semaglutide (Ozempic) 0.25 Mg/0.2 Ml Pen.injctr, 0.5 MG SQ MON, (Reported) Entered as Reported by: LIBBY SINGH on 01/24/22 1452 Last Action: Reviewed Sitagliptin Phos/Metformin HCl (Janumet Xr 50-1,000 mg Tablet) 50 Mg-1,000 Mg Tbmp.24hr, 2 TAB PO HS, (Reported) Entered as Reported by: LEX HOSKINS on 12/07/20915 Last Action: Reviewed Discontinued Medications Acetaminophen with Codeine (Acetaminop-Codein 240-24 mg/10) 10 Ml Solution, 10 ML PO Q6H PRN for cough Discontinued Reason: No Longer Taking Prescribed by: GEO BORJA on 09/29/212037 Last Action: Discontinued Albuterol Sulfate (Albuterol Sulfate) 2.5 Mg/0.5 Ml Vial.neb, 2.5 MG INH Q4H, (Reported) Discontinued Reason: No Longer Taking Entered as Reported by: GRIFFIN ORTEGA on 07/24/21 1145 Last Action: Discontinued Atorvastatin Calcium (Atorvastatin Calcium) 20 Mg Tablet, 20 MG PO HS, (Reported) Discontinued Reason: No Longer Taking Entered as Reported by: LEX HOSKINS on 6/23/21 0916 Last Action: Discontinued Benzonatate (Tessalon Perles) 100 Mg Capsule, 100 MG PO DAILY, (Reported) Discontinued Reason: No Longer Taking Entered as Reported by: GRIFFIN ORTEGA on 07/24/21 1145 Last Action: Discontinued Cyclobenzaprine HCl (Cyclobenzaprine HCl) 10 Mg Tablet, 10 MG PO Q8H PRN for SPASMS Discontinued Reason: No Longer Taking Prescribed by: MAKAYLA HAWKINS on 02/28/21 0942 Last Action: Discontinued Dextromethorphan Polistirex (Delsym) 30 Mg/5 Ml Petty.er.12h, 10 ML PO BID, (Reported) Discontinued Reason: Duplicate Order Entered as Reported by: GRIFFIN ORTEGA on 07/24/21 114 Last Action: Discontinued Doxycycline Hyclate (Doxycycline Hyclate) 100 Mg Tablet, 100 MG PO BID, (Report ed) Discontinued Reason: No Longer Taking Entered as Reported by: GRIFFIN ORTEGA on 07/24/21 1139 Last Action: Discontinued Estradiol (Estrace Tablet) 1 Mg Tablet, 1 MG PO DAILY, (Reported) Discontinued Reason: No Longer Taking Entered as Reported by: GRIFFIN ORTEGA on 07/24/21 1145 Last Action: Discontinued Famotidine (Pepcid) 20 Mg Tablet, 20 MG PO BID Discontinued Reason: No Longer Taking Prescribed by: IZABELA MAC on 09/28/21 1539 Last Action: Discontinued Gabapentin (Neurontin) 300 Mg Capsule, 300 MG PO TID PRN for PAIN-MODERATE (5-7) Discontinued Reason: Duplicate Order Prescribed by: IZABELA MAC on 10/11/21 1552 Last Action: Discontinued Gabapentin (Neurontin) 300 Mg Capsule, 300 MG PO HS PRN for NERVE PAIN, ( Reported) Discontinued Reason: Duplicate Order Entered as Reported by: CASSANDRA CHOPRA on 02/15/22 1215 Last Action: Discontinued Glyburide (Glyburide) 2.5 Mg Tablet, 2.5 MG PO DAILY, (Reported) Discontinued Reason: Duplicate Order Entered as Reported by: GRIFFIN ORTEGA on 07/24/21 1145 Last Action: Discontinued Hydrocodone/Acetaminophen (Hydrocodone-Acetamin 5-325 mg) 1 Each Tablet, 2 EACH PO Q6H PRN for PAIN-MILD (1-4), (Reported) Discontinued Reason: Duplicate Order Entered as Reported by: EMILIO SHEPPARD on 10/26/19 0812 Last Action: Discontinued Hydrocodone/Acetaminophen (Hydrocodone-Acetamin 5-325 mg) 5 Mg-325 Mg Tablet, 1 TAB PO Q4H PRN for PAIN-MODERATE (5-7) Discontinued Reason: Duplicate Order Prescribed by: ULI GARNER on 01/10/22 1334 Last Action: Discontinued Metoclopramide HCl (Reglan) 5 Mg Tablet, 5 MG PO Q6H PRN for NAUSEA/VOMITING-3RD LINE Discontinued Reason: Duplicate Order Prescribed by: IZABELA MAC on 03/13/21 1301 Last Action: Discontinued Ondansetron (Ondansetron Odt) 4 Mg Tab.rapdis, 4 MG PO Q4H Discontinued Reason: Duplicate Order Prescribed by: ULI GARNER on 01/10/22 1334 Last Action: Discontinued Promethazine HCl (Promethazine Tablet) 25 Mg Tablet, 25 MG PO Q6H PRN for NAUSEA/VOMITING Discontinued Reason: Duplicate Order Prescribed by: ULI GARNER on 01/10/22 1334 Last Action: Discontinued Sertraline HCl (Sertraline HCl) 100 Mg Tablet, 100 MG PO HS, (Reported) Discontinued Reason: No Longer Taking Entered as Reported by: LEX HOSKINS on 12/07/20 0912 Last Action: Discontinued Past Krocpxr-Blvcag-Skrvre Hx Patient Social History Smoking Status: Never a Smoker Type Used: Cigarettes 2nd Hand Smoke Exposure: No Recent Hopitalizations: No Alcohol Use?: No Have you traveled recently?: No Immunizations Up To Date Tetanus Booster (TDap): Less than 5yrs PED Vaccines UTD: No Date of Pneumonia Vaccine: May 17, 2012 Date of Influenza Vaccine: Jul 03, 2012 Seasonal Allergies Seasonal Allergies: No Surgeries History of Surgeries: Yes (hernia repair x2, knee scopes, port placement) Surgeries: Adenoidectomy, Appendectomy, Gallbladder, Hysterectomy, Nephrectomy, Orthopedic, Tonsillectomy Respiratory History of Respiratory Disorde: Yes Respiratory Disorders: Asthma Cardiovascular History of Cardiac Disorders: Yes Cardiac Disorders: Hypertension Neurological History of Neurological Disord: Yes Neurological Disorders: Headaches /Migraines Reproductive System Hx Reproductive Disorders: Yes (HX ENDOMETRIOSIS ) Sexually Transmitted Disease: No HIV/AIDS: No 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: 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 Genitourinary History of Genitourinary Disor: Yes (S/P LEFT NEPHRECTOMY) Genitourinary Disorders: UTI-Chronic Gastrointestinal History of Gastrointestinal Di: Yes (CHRONIC ABD PAIN/N/V./D) Gastrointestinal Disorders: Abdominal Hernia, Gastroesophageal Reflux, Liver Disease/Jaundice, Obstructive Bowel, Pancreatitis, Chronic Diarrhea, Polyps Musculoskeletal History of Musculoskeletal Dis: Yes (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) Musculoskeletal Disorders: Chronic Back Pain Endocrine History of Endocrine Disorders: Yes (OBESITY) Endocrine Disorders: Diabetes, Non-Insulin dep HEENT History of HEENT Disorders: No Loss of Vision: Denies Hearing Impairment: Denies Cancer History of Cancer: Yes Cancer: Kidney Psychosocial History of Psychiatric Problem: Yes Behavioral Health Disorders: Anxiety, Depression Integumentary History of Skin or Integumenta: No Skin/Integumentary Disorders: Herpes Blood Transfusions History of Blood Disorders: No Adverse Reaction to a Blood Tr: No (N/A) Family Medical History Significant Family History: Cancer (Mom has ovarian and cervical cancer as well as melanoma, still living. Grandma also had skin, cervical, ovarian cancer. Grandpa had pancreatic cancer), Diabetes, Hypertension Family Medial History: Cardiovascular disease 19 FATHER Completed stroke 19 FATHER Diabetes mellitus 19 FATHER Hypercholesterolemia 19 FATHER 19 MOTHER Hypertension 19 FATHER 19 MOTHER Neoplasm 19 MOTHER Psychosocial problem 19 FATHER 19 MOTHER Review of Systems-General Constitutional: chills; No fever; weakness, other (tired) EENTM: other (dry mouth); No nose congestion (had sinus infection recently), No throat pain Respiratory: No cough, No short of breath Cardiovascular: No chest pain, No palpitations Gastrointestinal: abdominal pain, constipation, nausea, vomiting Genitourinary: decreased output; No dysuria, No hematuria, No incontinence Musculoskeletal: back pain, joint pain, neck pain Skin: dryness, other Psychiatric/Neurological: Anxiety, Headache, Weakness Physical Exam-General Problems Physical Exam Vital Signs Vital Signs - First Documented 02/16/22 04:22 Temp 36.4 Pulse 69 Resp 18 B/P (MAP) 119/77 (91) Pulse Ox 97 O2 Delivery Room Air Capillary Refill : NONE General Appearance: mild distress, obese, other (chronically ill) HEENT: PERRL/EOMI, other (mouth is dry) Neck: non-tender, supple Respiratory: lungs clear, normal breath sounds, no respiratory distress, no accessory muscle use Cardiovascular: regular rate, rhythm, no murmur Peripheral Pulses: 2+ Dorsalis Pedis (R), 2+ Left Dors-Pedis (L), 2+ Radial Pulses (R), 2+ Radial Pulses (L) Gastrointestinal: soft, distended, tenderness (diffuse tenderness, worse in epigastric area), other (hypoactive bowel sounds) Extremities: no pedal edema, no calf tenderness Neurologic/Psychiatric: alert, normal mood/affect, oriented x 3 Skin: cool, other (dry), pallor, tattoos/piercings Lymphatic: no adenopathy Data Review Labs Laboratory Tests 02/22/22 11:32: Glucometer 88 02/22/22 12:15: White Blood Count 5.1, Red Blood Count 4.02, Hemoglobin 10.9L, Hematocrit 34L, Mean Corpuscular Volume 84, Mean Corpuscular Hemoglobin 27, Mean Corpuscular Hemoglobin Concent 32, Red Cell Distribution Width 13.6, Platelet Count 208, Mean Platelet Volume 9.8, Immature Granulocyte % (Auto) 0, Neutrophils (%) (Auto) 43, Lymphocytes (%) (Auto) 48H, Monocytes (%) (Auto) 6, Eosinophils (%) (Auto) 3, Basophils (%) (Auto) 0, Neutrophils # (Auto) 2.2, Lymphocytes # (Auto) 2.5, Monocytes # (Auto) 0.3, Eosinophils # (Auto) 0.2, Basophils # (Auto) 0.0, Immature Granulocyte # (Auto) 0.0, Erythrocyte Sedimentation Rate 33H, Sodium Level 144, Potassium Level 3.5L, Chloride Level 106, Carbon Dioxide Level 28, Anion Gap 10, Blood Urea Nitrogen 5L, Creatinine 1.01, Estimat Glomerular Filtration Rate 74, BUN/Creatinine Ratio 5, Glucose Level 90, Calcium Level 9.3, Corrected Calcium 9.6, Total Bilirubin 0.8, Aspartate Amino Transf (AST/SGOT) 40H, Alanine Aminotransferase (ALT/SGPT) 50, Alkaline Phosphatase 82, C-Reactive Protein High Sensitivity 0.76H, Total Protein 6.6, Albumin 3.6 Assessment/Plan Assessment/Plan Assessment/Plan Chronic pancreatitis Nausea Vomiting Epigastric Abdominal pain Episode of acute pancreatitis likely a result of ERCP last week. Maintain IV fluids. Continue phenergan, increase zofran to q4H IV. Pain control with Lortab and morphine. Request records from regarding pancreatic mass they biopsied during ERCP. HAFSA MURDOCK DO 02/22/222141: History of Present Illness History of Present Illness History of Present Illness Consult requested by Dr. Alfonso for nausea and vomiting intractable. Patient is a 36-year-old female who last week had an EGD and ERCP at . She states that she began having significant nausea and vomiting afterwards. Anytime she would try to drink something a come right up. She has continued to have the inability to keep anything down. Even having difficulty with ice cubes. She has become dehydrated she states and feels better after fluids somewhat. She has epigastric abdominal pain that is a 9 out of 10 that feels like a knife stabbing that radiates into her back. Nothing seems to make it better and try to drink anything makes it worse. She is unsure of the findings of her EGD and ERCP. She also notes decreased urination. She had a CT scan which had some fluid-filled small bowel but otherwise unremarkable. She had an elevated lipase and some elevated liver enzymes which these have improved. No other complaints at this time. Allergies and Home Medications Allergies Coded Allergies: fentanyl (Verified Allergy, Unknown, 01/24/22) meperidine (Verified Allergy, Unknown, 01/24/22) penicillin G (Verified Allergy, Unknown, 01/24/22) prochlorperazine (Verified Allergy, Unknown, 01/24/22) trimethobenzamide (Unverified Allergy, Unknown, 01/24/22) vancomycin (Verified Adverse Reaction, Intermediate, severe itching, 01/24/22) Patient Home Medication List Home Medication List Reviewed: Yes Acetaminophen (Tylenol Extra Strength) 500 Mg Tablet, 1,000 MG PO Q8H PRN for PAIN-MILD (1-4), (Reported) Entered as Reported by: EMILIO SHEPPARD on 10/26/19 0812 Last Action: Reviewed Albuterol Sulfate (Ventolin Hfa) 90 Mcg Hfa.aer.ad, 2 PUFF INH Q6H PRN for SHORTNESS OF BREATH, (Reported) Entered as Reported by: CASSANDRA CHOPRA on 02/15/22 1215 Last Action: Reviewed Albuterol Sulfate (Albuterol Sulfate) 2.5 Mg/3 Ml (0.083 %) Vial.neb, 3 ML PO Q8H PRN for SHORTNESS OF BREATH, (Reported) Entered as Reported by: CASSANDRA CHOPRA on 02/15/221214 Last Action: Reviewed Atorvastatin Calcium (Atorvastatin Calcium) 40 Mg Tablet, 40 MG PO HS, (Repo rted) Entered as Reported by: CASSANDRA CHOPRA on 02/15/221214 Last Action: Reviewed Benzonatate (Benzonatate) 100 Mg Capsule, 100 MG PO TID PRN for COUGH, (Reported) Entered as Reported by: CASSANDRA CHOPRA on 02/15/221214 Last Action: Reviewed Cetirizine HCl (Cetirizine HCl) 10 Mg Tablet, 10 MG PO HS, (Reported) Entered as Reported by: CASSANDRA CHOPRA on 02/15/221214 Last Action: Reviewed Cyanocobalamin (Cyanocobalamin Injection) 1,000 Mcg/Ml Inj, 1,000 MCG IM MONTHLY, (Reported) Entered as Reported by: GRIFFIN ORTEGA on 07/24/21 1145 Last Action: Reviewed Cyclobenzaprine HCl (Cyclobenzaprine HCl) 10 Mg Tablet, 10 MG PO HS PRN for M USCLE SPASMS, (Reported) Entered as Reported by: CASSANDRA CHOPRA on 02/15/221214 Last Action: Reviewed Diphenhydramine HCl (Benadryl) 25 Mg Capsule, 50 MG PO HS, (Reported) Entered as Reported by: EMILIO SHEPPARD on 10/26/19 0812 Last Action: Reviewed Gabapentin (Gabapentin) 100 Mg Capsule, 100 MG PO HS PRN for NERVE PAIN, (Reported) Entered as Reported by: CASSANDRA CHOPRA on 02/15/221218 Last Action: Reviewed Hydrocodone/Acetaminophen (Hydrocodone-Acetamin 5-325 mg) 5 Mg-325 Mg Tablet, 1 TAB PO Q6H PRN for PAIN-MODERATE (5-7), (Reported) Entered as Reported by: CASSANDRA CHOPRA on 02/15/221214 Last Action: Reviewed Lipase/Protease/Amylase (Creon Dr 24,000 Units Capsule) 24-76-120K Capsule.dr, 1 EA PO HS, (Reported) Entered as Reported by: CASSANDRA CHOPRA on 02/15/221214 Last Action: Reviewed Metoclopramide HCl (Metoclopramide HCl) 10 Mg Tablet, 10 MG PO Q6H PRN for NAUSEA/VOMITING-3RD LINE, (Reported) Entered as Reported by: CASSANDRA CHOPRA on 02/15/221214 Last Action: Reviewed Ondansetron (Ondansetron Odt) 8 Mg Tab.rapdis, 8 MG PO Q8H PRN for NAUSE A/VOMITING-1ST LINE, (Reported) Entered as Reported by: EMILIO SHEPPARD on 10/26/19 0812 Last Action: Reviewed Pregabalin (Pregabalin) 75 Mg Capsule, 75 MG PO BID PRN for NERVE PAIN, (Reported) Entered as Reported by: CASSANDRA CHOPRA on 02/15/221214 Last Action: Reviewed Promethazine HCl (Promethazine Tablet) 25 Mg Tablet, 25 MG PO Q6H PRN for NAUSEA/VOMITING-2ND LINE, (Reported) Entered as Reported by: LEX HOSKINS on 12/07/20 0916 Last Action: Reviewed Ropinirole HCl (Ropinirole HCl) 4 Mg Tablet, 4 MG PO HS, (Reported) Entered as Reported by: LEX HOSKINS on 06/28/17 1010 Last Action: Converted Semaglutide (Ozempic) 0.25 Mg/0.2 Ml Pen.injctr, 0.5 MG SQ MON, (Reported) Entered as Reported by: LIBBY SINGH on 01/24/22 1452 Last Action: Reviewed Sitagliptin Phos/Metformin HCl (Janumet Xr 50-1,000 mg Tablet) 50 Mg-1,000 Mg Tbmp.24hr, 2 TAB PO HS, (Reported) Entered as Reported by: LEX HOSKINS on 12/07/20 09 Last Action: Reviewed Discontinued Medications Acetaminophen with Codeine (Acetaminop-Codein 240-24 mg/10) 10 Ml Solution, 10 ML PO Q6H PRN for cough Discontinued Reason: No Longer Taking Prescribed by: GEO BORJA on 09/29/212037 Last Action: Discontinued Albuterol Sulfate (Albuterol Sulfate) 2.5 Mg/0.5 Ml Vial.neb, 2.5 MG INH Q4H, (Reported) Discontinued Reason: No Longer Taking Entered as Reported by: GRIFFIN ORTEGA on 07/24/21 1145 Last Action: Discontinued Atorvastatin Calcium (Atorvastatin Calcium) 20 Mg Tablet, 20 MG PO HS, (Reported) Discontinued Reason: No Longer Taking Entered as Reported by: LEX HOSKINS on 12/07/20 0916 Last Action: Discontinued Benzonatate (Tessalon Perles) 100 Mg Capsule, 100 MG PO DAILY, (Reported) Discontinued Reason: No Longer Taking Entered as Reported by: GRIFFIN ORTEGA on 07/24/21 1145 Last Action: Discontinued Cyclobenzaprine HCl (Cyclobenzaprine HCl) 10 Mg Tablet, 10 MG PO Q8H PRN for SPASMS Discontinued Reason: No Longer Taking Prescribed by: MAKAYLA HAWKINS on 02/28/21 0942 Last Action: Discontinued Dextromethorphan Polistirex (Delsym) 30 Mg/5 Ml Petty.er.12h, 10 ML PO BID, (Reported) Discontinued Reason: Duplicate Order Entered as Reported by: GRIFFIN ORTEGA on 07/24/21 114 Last Action: Discontinued Doxycycline Hyclate (Doxycycline Hyclate) 100 Mg Tablet, 100 MG PO BID, (Reported) Discontinued Reason: No Longer Taking Entered as Reported by: GRIFFIN ORTEGA on 07/24/21 1139 Last Action: Discontinued Estradiol (Estrace Tablet) 1 Mg Tablet, 1 MG PO DAILY, (Reported) Discontinued Reason: No Longer Taking Entered as Reported by: GRIFFIN ORTEGA on 07/24/21 114 Last Action: Discontinued Famotidine (Pepcid) 20 Mg Tablet, 20 MG PO BID Discontinued Reason: No Longer Taking Prescribed by: IZABELA MAC on 09/28/21 1539 Last Action: Discontinued Gabapentin (Neurontin) 300 Mg Capsule, 300 MG PO TID PRN for PAIN-MODERATE (5-7) Discontinued Reason: Duplicate Order Prescribed by: IZABELA MAC on 10/11/21 1552 Last Action: Discontinued Gabapentin (Neurontin) 300 Mg Capsule, 300 MG PO HS PRN for NERVE PAIN, (Reported) Discontinued Reason: Duplicate Order Entered as Reported by: CASSANDRA CHOPRA on 02/15/22 1215 Last Action: Discontinued Glyburide (Glyburide) 2.5 Mg Tablet, 2.5 MG PO DAILY, (Reported) Discontinued Reason: Duplicate Order Entered as Reported by: GRIFFIN ORTEGA on 07/24/21 1145 Last Action: Discontinued Hydrocodone/Acetaminophen (Hydrocodone-Acetamin 5-325 mg) 1 Each Tablet, 2 EACH PO Q6H PRN for PAIN-MILD (1-4), (Reported) Discontinued Reason: Duplicate Order Entered as Reported by: EMILIO SHEPPARD on 10/26/19 0812 Last Action: Discontinued Hydrocodone/Acetaminophen (Hydrocodone-Acetamin 5-325 mg) 5 Mg-325 Mg Tablet, 1 TAB PO Q4H PRN for PAIN-MODERATE (5-7) Discontinued Reason: Duplicate Order Prescribed by: ULI GARNER on 01/10/22 1334 Last Action: Discontinued Metoclopramide HCl (Reglan) 5 Mg Tablet, 5 MG PO Q6H PRN for NAUSEA/VOMITING-3RD LINE Discontinued Reason: Duplicate Order Prescribed by: IZABELA MAC on 03/13/21 1301 Last Action: Discontinued Ondansetron (Ondansetron Odt) 4 Mg Tab.rapdis, 4 MG PO Q4H Discontinued Reason: Duplicate Order Prescribed by: ULI GARNER on 01/10/22 1334 Last Action: Discontinued Promethazine HCl (Promethazine Tablet) 25 Mg Tablet, 25 MG PO Q6H PRN for NAUSEA/VOMITING Discontinued Reason: Duplicate Order Prescribed by: ULI GARNER on 01/10/22 1334 Last Action: Discontinued Sertraline HCl (Sertraline HCl) 100 Mg Tablet, 100 MG PO HS, (Reported) Discontinued Reason: No Longer Taking Entered as Reported by: LEX HOSKINS on 12/07/20 0912 Last Action: Discontinued Past Saivfez-Cwyzzo-Hljxyx Hx Reviewed Nursing Assessment Reviewed/Agree w Nursing PMH: Yes Family Medical History Significant Family History: No Pertinent Family Hx Family Medial History: Cardiovascular disease 19 FATHER Completed stroke 19 FATHER Diabetes mellitus 19 FATHER Hypercholesterolemia 19 FATHER 19 MOTHER Hypertension 19 FATHER 19 MOTHER Neoplasm 19 MOTHER Psychosocial problem 19 FATHER 19 MOTHER Review of Systems-General Constitutional: No fever; weakness EENTM: No blurred vision, No double vision Respiratory: No cough, No short of breath Cardiovascular: No chest pain, No palpitations Gastrointestinal: abdominal pain, constipation, nausea, vomiting Genitourinary: decreased output; No incontinence Musculoskeletal: back pain, joint pain Skin: No change in color, No change in hair/nails; other Psychiatric/Neurological: Anxiety; Denies Depressed, Denies Emotional Problems; Weakness All Other Systems Reviewed Negative Unless Noted: Yes (Negative excepted noted.) Physical Exam-General Problems Physical Exam General Appearance: no apparent distress, obese, other (chronically ill) HEENT: PERRL/EOMI, other (mouth is dry) Neck: non-tender, supple Respiratory: chest non-tender, no respiratory distress, no accessory muscle use Cardiovascular: regular rate, rhythm, no JVD Gastrointestinal: soft, tenderness (Mild tenderness in the epigastric region) Rectal: deferred Back: no CVA tenderness, no vertebral tenderness Extremities: no pedal edema, no calf tenderness Neurologic/Psychiatric: alert, normal mood/affect, oriented x 3 Skin: normal color, warm/dry Lymphatic: no adenopathy Assessment/Plan Assessment/Plan Assessment/Plan Chronic pancreatitis Intractable nausea/vomiting Epigastric Abdominal pain Episode of acute pancreatitis likely a result of ERCP last week. Maintain IV fluids. Antiemetics as needed Pain control Request endoscopic records from [facility] Supervisory-Addendum Brief Verification & Attestation Participated in pt care: history, MDM, physical Personally performed: exam, history, MDM, supervision of care Care discussed with: Medical Student Procedures: n/a Results interpretation: Verified all documentation Verification and Attestation of Medical Student E/M Service A medical student performed and documented this service in my presence. I reviewed and verified all information documented by the medical student and made modifications to such information, when appropriate. I personally performed the physical exam and medical decision making. Hafsa Murdock, Feb 22, 2022,21:42 MARTITA PAL Feb 22, 2022 17:18 HAFSA MURDOCK DO Feb 22, 2022 21:42
[2022-02-22] MEDS: PANTOPRAZOLE 40 MG (PROTONIX) VIAL IV SCH (18:53)
[2022-02-22] MEDS: SUCRALFATE 1 GM (CARAFATE) TAB PO SCH (21:22)
[2022-02-22] MEDS: rOPINIRole 1 MG (REQUIP) TABLET PO SCH (21:22)
[2022-02-22] MEDS: diphenhydrAMINE 50 MG/ML INJ (BENADRYL) IV PRN (21:32)
[2022-02-22] MEDS: D5 1/2 NS 1000 ML IV SOLUTION 1,000 ML IV SCH (21:58)
[2022-02-23] VITALS: BP 139/72
[2022-02-23] MEDS: inSUlin ASPART (NovoLOG) 1 UNIT/0.01 ML (CHARGE PER UNIT) SC SCH ×4 (00:02→17:54)
[2022-02-23] MEDS: ONDANSETRON 4 MG/2 ML (SDV) Z0FRAN IV PRN ×4 (00:03→18:15)
[2022-02-23] MEDS: PROMETHAZINE INJ 25 MG/ML (PHENERGAN) AMP IVP PRN ×4 (03:51→20:18)
[2022-02-23] MEDS: morphine INJ 4 MG/ML 1 ML (VIAL/SYRINGE) IV PRN ×4 (03:52→20:19)
[2022-02-23] MEDS: SUCRALFATE 1 GM (CARAFATE) TAB PO SCH ×4 (05:04→20:18)
--- NOTE | 2022-02-23 06:01 | Progress Note - Surgery ---
DAVID ALMONTE 02/23/22 0600: Subjective Date Seen by a Provider: Feb 23, 2022 Time Seen by a Provider: 05:55 Subjective/Events-last exam Patient is awake and alert in her bed this morning. Patient reports that her nausea is about the same as yesterday. Patient stated that she had some mild left shoulder pain with movement which she says has occurred episodically after receiving her latest COVID booster. Patient has some mild epigastric pain with tenderness on palpation. Review of Systems General: No Chills, No Night Sweats HEENT: No Head Aches, No Visual Changes Pulmonary: No Dyspnea, No Cough Cardiovascular: No: Chest Pain, Palpitations Gastrointestinal: Nausea, Abdominal Pain (epigastric) Genitourinary: No Dysuria, No Frequency Musculoskeletal: shoulder pain (with movement, nontender to palpation); No: neck pain Neurological: No: Numbness, Incoordination Objective Exam Vital Signs Date Time Temp Pulse Resp B/P (MAP) Pulse Ox O2 Delivery O2 Flow Rate FiO2 02/23/22 00:00 36.6 75 20 139/72 (94) 98 Room Air 02/22/22 20:59 93 Room Air 02/22/22 15:17 36.7 73 20 116/72 (87) 93 Room Air 02/22/22 10:01 97 Room Air 02/22/22 07:52 36.0 81 18 132/88 (103) 95 Room Air I & O 02/23/22 07:00 Intake Total 0 ml Output Total 400 ml Balance -400 ml Capillary Refill : NONE General Appearance: No Apparent Distress, WD/WN, Obese HEENT: PERRL/EOMI, Normal ENT Inspection; No Scleral Icterus (L), No Scleral Icterus (R) Neck: Full Range of Motion, Normal Inspection, Non Tender Respiratory: Chest Non Tender, Lungs Clear, Normal Breath Sounds Cardiovascular: Regular Rate, Rhythm, No Edema, No Gallop, No JVD Peripheral Pulses: 2+ Dorsalis Pedis (R), 2+ Left Dors-Pedis (L), 2+ Radial Pulses (R), 2+ Radial Pulses (L) Gastrointestinal: soft, tenderness (Mild tenderness in the epigastric region) Extremity: Normal Capillary Refill, Normal Inspection, Normal Range of Motion Neurologic/Psychiatric: Alert, Oriented x3 Skin: Normal Color, Warm/Dry Lymphatic: No Adenopathy Results Lab Laboratory Tests 02/22/22 11:32: Glucometer 88 02/22/22 12:15: White Blood Count 5.1, Red Blood Count 4.02, Hemoglobin 10.9L, Hematocrit 34L, Mean Corpuscular Volume 84, Mean Corpuscular Hemoglobin 27, Mean Corpuscular Hemoglobin Concent 32, Red Cell Distribution Width 13.6, Platelet Count 208, Mean Platelet Volume 9.8, Immature Granulocyte % (Auto) 0, Neutrophils (%) (Auto) 43, Lymphocytes (%) (Auto) 48H, Monocytes (%) (Auto) 6, Eosinophils (%) (Auto) 3, Basophils (%) (Auto) 0, Neutrophils # (Auto) 2.2, Lymphocytes # (Auto) 2.5, Monocytes # (Auto) 0.3, Eosinophils # (Auto) 0.2, Basophils # (Auto) 0.0, Immature Granulocyte # (Auto) 0.0, Erythrocyte Sedimentation Rate 33H, Sodium Level 144, Potassium Level 3.5L, Chloride Level 106, Carbon Dioxide Level 28, Anion Gap 10, Blood Urea Nitrogen 5L, Creatinine 1.01, Estimat Glomerular Filtration Rate 74, BUN/Creatinine Ratio 5, Glucose Level 90, Calcium Level 9.3, Corrected Calcium 9.6, Total Bilirubin 0.8, Aspartate Amino Transf (AST/SGOT) 40H, Alanine Aminotransferase (ALT/SGPT) 50, Alkaline Phosphatase 82, C-Reactive Protein High Sensitivity 0.76H, Total Protein 6.6, Albumin 3.6 02/22/22 17:44: Glucometer 85 02/22/22 21:17: Glucometer 73 02/22/22 23:58: Glucometer 86 Assessment/Plan Assessment/Plan Assessment/Plan Chronic pancreatitis Intractable nausea/vomiting Epigastric Abdominal pain Episode of acute pancreatitis likely a result of ERCP last week. Maintain IV fluids. Continue antiemetics Continue pain control [facility]oscopic records from [facility]. GLENN SANCHEZ DO 02/23/222057: Subjective Subjective/Events-last exam Patient still with nausea and vomiting. She had an episode of emesis just before I came in. She still having abdominal pain to the epigastric region. If so radiates to her back. Nothing is really helping still. We have not been able to obtain records yet awaiting those results of recent ERCP/EGD/ultrasonography Objective Exam General Appearance: No Apparent Distress, WD/WN, Obese HEENT: PERRL/EOMI, Normal ENT Inspection Neck: Full Range of Motion, Normal Inspection, Non Tender Respiratory: Chest Non Tender, No Accessory Muscle Use, No Respiratory Distress Cardiovascular: Regular Rate, Rhythm, No JVD Gastrointestinal: soft, tenderness (Mild tenderness in the epigastric region) Extremity: Normal Inspection, Non Tender Neurologic/Psychiatric: Alert, Oriented x3 Skin: Normal Color, Warm/Dry Lymphatic: No Adenopathy Assessment/Plan Assessment/Plan Assessment/Plan Chronic pancreatitis Intractable nausea/vomiting Epigastric Abdominal pain Episode of acute/chronic pancreatitis Maintain IV fluids. Continue antiemetics Continue pain control Endoscopic records from [facility] requested. On protonix/carafate Supervisory-Addendum Brief Verification & Attestation Participated in pt care: history, MDM, physical Personally performed: exam, history, MDM, supervision of care Care discussed with: Medical Student Procedures: n/a Results interpretation: Verified all documentation Verification and Attestation of Medical Student E/M Service A medical student performed and documented this service in my presence. I reviewed and verified all information documented by the medical student and made modifications to such information, when appropriate. I personally performed the physical exam and medical decision making. Glenn Sanchez, Feb 23, 2022,21:00 DAVID ALMONTE Feb 23, 2022 06:00 GLENN SANCHEZ DO Feb 23, 2022 20:58
[2022-02-23 07:24] LABS: BASOPHILS % (AUTO) 1 % (0-10); EOSINOPHILS # (AUTO) 0.2 10^3/uL (0.0-0.3); EOSINOPHILS % (AUTO) 4 % (0-10); HEMATOCRIT 36 % (35-52); HEMOGLOBIN 11.3 g/dL (11.5-16.0); LYMPHOCYTES # (AUTO) 2.6 10^3/uL (1.0-4.0); LYMPHOCYTES % (AUTO) 48 % (12-44); MEAN CORPUSCULAR HEMOGLOBIN 27 pg (25-34); MEAN CORPUSCULAR HGB CONC 32 g/dL (32-36); MEAN CORPUSCULAR VOLUME 84 fL (80-99); MEAN PLATELET VOLUME 10.7 fL (9.0-12.2); MONOCYTES # (AUTO) 0.3 10^3/uL (0.0-1.0); MONOCYTES % (AUTO) 6 % (0-12); NEUTROPHILS # (AUTO) 2.3 10^3/uL (1.8-7.8); NEUTROPHILS % (AUTO) 41 % (42-75); PLATELET COUNT 205 10^3/uL (130-400); WHITE BLOOD COUNT 5.4 10^3/uL (4.3-11.0)
[2022-02-23 07:26] VITALS: BP 127/76
[2022-02-23 07:35] LABS: ALBUMIN 3.7 GM/DL (3.2-4.5); POTASSIUM 3.6 MMOL/L (3.6-5.0)
[2022-02-23 07:36] LABS: CALCIUM 9.4 MG/DL (8.5-10.1)
[2022-02-23 07:37] LABS: TOTAL PROTEIN 6.6 GM/DL (6.4-8.2)
[2022-02-23 07:39] LABS: BILIRUBIN,TOTAL 0.8 MG/DL (0.1-1.0)
[2022-02-23 07:41] LABS: CREATININE SERUM 1.16 MG/DL (0.60-1.30)
[2022-02-23] MEDS: PANTOPRAZOLE 40 MG (PROTONIX) VIAL IV SCH (08:30)
[2022-02-23] MEDS: diphenhydrAMINE 50 MG/ML INJ (BENADRYL) IV PRN ×2 (08:31→21:58)
[2022-02-23] MEDS: ENOXAPARIN 40 MG/0.4 ML (LOVENOX) SYR SC SCH ×2 (10:16→21:58)
[2022-02-23] MEDS: D5 1/2 NS 1000 ML IV SOLUTION 1,000 ML IV SCH ×2 (10:16→20:18)
--- NOTE | 2022-02-23 13:19 | Progress Note - Hospitalist ---
BENITO PANDYA 02/23/22 1319: Subjective HPI/CC On Admission Date Seen by Provider: Feb 23, 2022 Time Seen by Provider: 13:13 Subjective/Events-last exam Patient's nausea still not improving Patient is having multiple episodes of dry heaving everyday Epigastric pain is still present at 8/10 Glucose and labs were reviewed Urinating without problem Not tolerating ice chips Objective Exam Vital Signs Vital Signs Date Time Temp Pulse Resp B/P (MAP) Pulse Ox O2 Delivery O2 Flow Rate FiO2 02/23/22 08:45 Room Air 02/23/22 07:26 36.0 68 18 127/76 (93) 95 Capillary Refill : NONE General Appearance: Anxious, Mild Distress, Obese HEENT: PERRL/EOMI; No Scleral Icterus (L), No Scleral Icterus (R) Neck: Full Range of Motion, Normal Inspection, Non Tender Respiratory: Chest Non Tender, Lungs Clear, Normal Breath Sounds Cardiovascular: Regular Rate, Rhythm, No Edema, No Gallop Gastrointestinal: Normal Bowel Sounds, Other (epigstric tenderness ) Rectal: Deferred Back: Normal Inspection, No CVA Tenderness Extremity: Normal Capillary Refill, Normal Inspection, Normal Range of Motion Neurologic/Psychiatric: Alert, Oriented x3 Skin: Normal Color, Warm/Dry Lymphatic: No Adenopathy Results/Procedures Lab Laboratory Tests 02/23/22 05:07 Patient resulted labs reviewed. Assessment/Plan Assessment and Plan Assess & Plan/Chief Complaint Assessment: Recurrent nausea and vomiting Recurrent pancreatitis Epigastric pain Obesity Diabetes Chronic issues Plan: Monitor N/V Monitor glucose levels Monitor pain- morphine in use Continue IVF Surgery consulted Continue with antiemetics SILVANA BILLS DO 02/24/22 0543: Subjective Subjective/Events-last exam Pt is still having some nausea and vomiting Blood sugars are good Changed IV fluid to D5 half normal for mild hypoglycemia of 79 Review of Systems Gastrointestinal: Nausea, Vomiting Objective Exam General Appearance: Chronically ill, Obese Respiratory: Lungs Clear, Normal Breath Sounds Cardiovascular: Regular Rate, Rhythm Assessment/Plan Assessment and Plan Assess & Plan/Chief Complaint TPN? GLucose in IV Supervisory-Addendum Brief Verification & Attestation Participated in pt care: history, MDM, physical Personally performed: exam, history, MDM, supervision of care Care discussed with: Medical Student Procedures: n/a Results interpretation: Verified all documentation Verification and Attestation of Medical Student E/M Service A medical student performed and documented this service in my presence. I reviewed and verified all information documented by the medical student and made modifications to such information, when appropriate. I personally performed the physical exam and medical decision making. Silvana Bills, Feb 24, 2022,05:42 BENITO PANDYA Feb 23, 2022 13:19 SILVANA BILLS DO Feb 24, 2022 05:43
[2022-02-23 16:00] VITALS: BP 138/88
[2022-02-23] MEDS: rOPINIRole 1 MG (REQUIP) TABLET PO SCH (20:18)
[2022-02-23 23:34] VITALS: BP 110/69
[2022-02-23] MEDS ORDERED: DEXTROSE 50% 50 ML (IMS) SYR ONE (23:43)
[2022-02-23] MEDS ORDERED: DEXTROSE 50% 50 ML (IMS) SYR IV PRN (23:45)
[2022-02-24] MEDS: inSUlin ASPART (NovoLOG) 1 UNIT/0.01 ML (CHARGE PER UNIT) SC SCH ×4 (00:14→16:17)
[2022-02-24] MEDS: morphine INJ 4 MG/ML 1 ML (VIAL/SYRINGE) IV PRN ×3 (00:28→10:01)
[2022-02-24] MEDS: ONDANSETRON 4 MG/2 ML (SDV) Z0FRAN IV PRN ×4 (00:28→21:49)
[2022-02-24] MEDS: SUCRALFATE 1 GM (CARAFATE) TAB PO SCH ×4 (05:36→20:13)
[2022-02-24] MEDS: PROMETHAZINE INJ 25 MG/ML (PHENERGAN) AMP IVP PRN ×4 (05:37→20:13)
[2022-02-24] MEDS: D5 1/2 NS 1000 ML IV SOLUTION 1,000 ML IV SCH (05:44)
[2022-02-24 07:17] VITALS: BP 126/76
--- NOTE | 2022-02-24 07:18 | Progress Note - Hospitalist ---
Subjective HPI/CC On Admission Date Seen by Provider: Feb 24, 2022 Time Seen by Provider: 11:00 Subjective/Events-last exam N/V continues No BM yet Clinimix with D5 will be started Hypoglycemia is an issue Objective Exam Vital Signs Vital Signs Date Time Temp Pulse Resp B/P (MAP) Pulse Ox O2 Delivery O2 Flow Rate FiO2 02/24/22 09:50 Room Air 02/24/22 07:17 35.9 71 18 126/76 (93) 96 Capillary Refill : NONE General Appearance: No Apparent Distress, WD/WN, Chronically ill Respiratory: Lungs Clear Cardiovascular: Regular Rate, Rhythm Neurologic/Psychiatric: Alert, Oriented x3, No Motor/Sensory Deficits, Normal Mood/Affect Results/Procedures Lab Patient resulted labs reviewed. Assessment/Plan Assessment and Plan Assess & Plan/Chief Complaint Assessment: Chronic pancreatitis with acute flare Abdominal pain Hypoglycemia due to poor intake N/V Plan: Clinimix Monitor pain SULAIMAN BILLS DO Feb 24, 2022 07:18
[2022-02-24] MEDS: PANTOPRAZOLE 40 MG (PROTONIX) VIAL IV SCH (08:05)
[2022-02-24] MEDS: diphenhydrAMINE 50 MG/ML INJ (BENADRYL) IV PRN ×2 (08:09→13:27)
[2022-02-24] MEDS: ENOXAPARIN 40 MG/0.4 ML (LOVENOX) SYR SC SCH ×2 (08:09→20:50)
[2022-02-24] MEDS: AA 4.25% W/LYTES IN D5W IV SOL 1,000 ML IV SCH ×3 (11:57→21:49)
--- NOTE | 2022-02-24 12:19 | Progress Note ---
Subjective Date Seen by a Provider: Feb 24, 2022 Time Seen by a Provider: 11:30 Subjective/Events-last exam Patient seen with Dr. Daniel. Patient reports still having upper abdominal pain with nausea and vomiting. Not tolerating clear liquids. Ambulating. Objective Exam Vital Signs Date Time Temp Pulse Resp B/P (MAP) Pulse Ox O2 Delivery O2 Flow Rate FiO2 02/24/22 09:50 Room Air 02/24/22 07:17 35.9 71 18 126/76 (93) 96 Room Air 02/23/22 23:34 36.1 71 18 110/69 (83) 97 Room Air 02/23/22 20:00 Room Air 02/23/22 16:00 35.9 71 19 138/88 (105) 97 Room Air I & O 02/24/22 07:00 Intake Total 1000 ml Balance 1000 ml Capillary Refill : NONE General Appearance: No Apparent Distress, WD/WN Neck: Normal Inspection, Supple Respiratory: No Accessory Muscle Use, No Respiratory Distress Gastrointestinal: soft, tenderness (upper abdomen) Extremity: Normal Inspection, Normal Range of Motion Neurologic/Psychiatric: Alert, Oriented x3 Skin: Normal Color, Warm/Dry Results Lab Laboratory Tests 02/23/22 17:48: Glucometer 114H 02/23/22 20:25: Glucometer 82 02/23/22 23:36: Glucometer 52*L 02/24/22 00:32: Glucometer 117H 02/24/22 05:29: Glucometer 118H 02/24/22 10:23: Glucometer 85 02/24/22 11:42: Glucometer 82 Assessment/Plan Assessment/Plan Assess & Plan/Chief Complaint A 36 year old female with Chronic pancreatitis Intractable nausea/vomiting Epigastric Abdominal pain VSS Maintain IV fluids. Continue antiemetics Continue pain control Endoscopic records from [facility] requested. On protonix/carafate Started on clinimix FERNY ZHANG APRN Feb 24, 2022 12:19
[2022-02-24] MEDS: fentaNYL INJ 100 MCG/2 ML AMP IVP PRN ×3 (14:52→23:15)
[2022-02-24 16:45] VITALS: BP 135/82
[2022-02-24] MEDS: rOPINIRole 1 MG (REQUIP) TABLET PO SCH (20:11)
[2022-02-25] MEDS: diphenhydrAMINE 50 MG/ML INJ (BENADRYL) IV PRN ×3 (00:39→19:52)
[2022-02-25] MEDS: PROMETHAZINE INJ 25 MG/ML (PHENERGAN) AMP IVP PRN ×6 (00:44→23:11)
[2022-02-25 01:01] VITALS: BP 144/85
[2022-02-25] MEDS: inSUlin ASPART (NovoLOG) 1 UNIT/0.01 ML (CHARGE PER UNIT) SC SCH ×5 (01:01→23:21)
[2022-02-25] MEDS: HYDROmorphone 2 MG/ML VIAL (DILAUDID) IV PRN ×4 (02:38→10:30)
[2022-02-25] MEDS: ONDANSETRON 4 MG/2 ML (SDV) Z0FRAN IV PRN ×2 (02:38→08:12)
[2022-02-25] MEDS: SUCRALFATE 1 GM (CARAFATE) TAB PO SCH ×4 (05:18→19:52)
[2022-02-25] MEDS: AA 4.25% W/LYTES IN D5W IV SOL 1,000 ML IV SCH ×3 (06:20→23:11)
[2022-02-25 07:29] VITALS: BP 123/82
--- NOTE | 2022-02-25 07:52 | Progress Note - Hospitalist ---
Subjective HPI/CC On Admission Date Seen by Provider: Feb 25, 2022 Time Seen by Provider: 11:00 Subjective/Events-last exam No changes Reports emesis ongoing last night Clinimix maintained Review of Systems Gastrointestinal: Nausea, Vomiting, Abdominal Pain Objective Exam Vital Signs Vital Signs Date Time Temp Pulse Resp B/P (MAP) Pulse Ox O2 Delivery O2 Flow Rate FiO2 02/25/22 08:00 Room Air 02/25/22 07:29 35.7 64 18 123/82 (96) 98 Capillary Refill : NONE General Appearance: No Apparent Distress, WD/WN, Chronically ill Respiratory: Lungs Clear, Normal Breath Sounds Cardiovascular: Regular Rate, Rhythm Neurologic/Psychiatric: Alert, Oriented x3, No Motor/Sensory Deficits, Normal Mood/Affect Results/Procedures Lab Laboratory Tests 02/25/22 08:53 Patient resulted labs reviewed. Assessment/Plan Assessment and Plan Assess & Plan/Chief Complaint Assessment: Chronic pancreatitis with acute flare Abdominal pain Hypoglycemia due to poor intake N/V Plan: Clinimix Monitor pain SULAIMAN BILLS DO Feb 25, 2022 07:52
[2022-02-25] MEDS: PANTOPRAZOLE 40 MG (PROTONIX) VIAL IV SCH (08:12)
[2022-02-25 09:04] LABS: BASOPHILS % (AUTO) 0 % (0-10); EOSINOPHILS # (AUTO) 0.2 10^3/uL (0.0-0.3); EOSINOPHILS % (AUTO) 3 % (0-10); HEMATOCRIT 37 % (35-52); HEMOGLOBIN 11.9 g/dL (11.5-16.0); LYMPHOCYTES # (AUTO) 2.8 10^3/uL (1.0-4.0); LYMPHOCYTES % (AUTO) 47 % (12-44); MEAN CORPUSCULAR HEMOGLOBIN 27 pg (25-34); MEAN CORPUSCULAR HGB CONC 32 g/dL (32-36); MEAN CORPUSCULAR VOLUME 83 fL (80-99); MEAN PLATELET VOLUME 9.8 fL (9.0-12.2); MONOCYTES # (AUTO) 0.3 10^3/uL (0.0-1.0); MONOCYTES % (AUTO) 5 % (0-12); NEUTROPHILS # (AUTO) 2.7 10^3/uL (1.8-7.8); NEUTROPHILS % (AUTO) 45 % (42-75); PLATELET COUNT 225 10^3/uL (130-400)
[2022-02-25 09:13] LABS: ALBUMIN 3.9 GM/DL (3.2-4.5)
[2022-02-25 09:15] LABS: CALCIUM 9.6 MG/DL (8.5-10.1)
[2022-02-25 09:17] LABS: BILIRUBIN,TOTAL 0.7 MG/DL (0.1-1.0)
[2022-02-25 09:19] LABS: CREATININE SERUM 1.05 MG/DL (0.60-1.30)
[2022-02-25] MEDS: ENOXAPARIN 40 MG/0.4 ML (LOVENOX) SYR SC SCH ×2 (10:30→21:55)
--- NOTE | 2022-02-25 12:09 | Progress Note ---
Subjective Date Seen by a Provider: Feb 25, 2022 Time Seen by a Provider: 11:55 Subjective/Events-last exam Patient seen with Dr. Daniel. Patient still report episodes of upper abdominal pain as well as nausea and vomiting. She reports that she vomited 4 times last night. Reports that she tried drinking water and that made her sick. She report that the Fentanyl makes her sleepy during the day and the Morphine did not bother her. Patient reports that she would like to have the morphine during the day and the fentanyl at night to sleep. She also reports itching under the tegraderm for the PICC line. Objective Exam Vital Signs Date Time Temp Pulse Resp B/P (MAP) Pulse Ox O2 Delivery O2 Flow Rate FiO2 02/25/22 08:00 Room Air 02/25/22 07:29 35.7 64 18 123/82 (96) 98 Room Air 02/25/22 01:01 36.4 68 18 144/85 (104) 96 Room Air 02/24/22 20:38 Room Air 02/24/22 16:45 36.7 109 17 135/82 (99) 93 Room Air I & O 02/25/22 07:00 Intake Total 90 ml Balance 90 ml Capillary Refill : NONE General Appearance: No Apparent Distress, WD/WN Neck: Normal Inspection, Supple Respiratory: No Accessory Muscle Use, No Respiratory Distress Gastrointestinal: soft, tenderness (upper abdomen) Extremity: Normal Inspection, Normal Range of Motion Neurologic/Psychiatric: Alert, Oriented x3 Skin: Normal Color, Warm/Dry Results Lab Laboratory Tests 02/24/22 20:22: Glucometer 106 02/25/22 00:41: Glucometer 101 02/25/22 05:15: Glucometer 103 02/25/22 08:53: White Blood Count 6.0, Red Blood Count 4.49, Hemoglobin 11.9, Hematocrit 37, Mean Corpuscular Volume 83, Mean Corpuscular Hemoglobin 27, Mean Corpuscular Hemoglobin Concent 32, Red Cell Distribution Width 13.5, Platelet Count 225, Mean Platelet Volume 9.8, Immature Granulocyte % (Auto) 0, Neutrophils (%) (Auto) 45, Lymphocytes (%) (Auto) 47H, Monocytes (%) (Auto) 5, Eosinophils (%) (Auto) 3, Basophils (%) (Auto) 0, Neutrophils # (Auto) 2.7, Lymphocytes # (Auto) 2.8, Monocytes # (Auto) 0.3, Eosinophils # (Auto) 0.2, Basophils # (Auto) 0.0, Immature Granulocyte # (Auto) 0.0, Sodium Level 143, Potassium Level 4.0, Chloride Level 104, Carbon Dioxide Level 28, Anion Gap 11, Blood Urea Nitrogen 16, Creatinine 1.05, Estimat Glomerular Filtration Rate 70, BUN/Creatinine Ratio 15, Glucose Level 110H, Calcium Level 9.6, Corrected Calcium 9.7, Total Bilirubin 0.7, Aspartate Amino Transf (AST/SGOT) 25, Alanine Aminotransferase (ALT/SGPT) 44, Alkaline Phosphatase 82, Total Protein 7.0, Albumin 3.9 02/25/22 09:26: Glucometer 88 Assessment/Plan Assessment/Plan Assess & Plan/Chief Complaint A 36 year old female with Chronic pancreatitis Intractable nausea/vomiting Epigastric Abdominal pain VSS Maintain IV fluids. Continue antiemetics Continue pain control Endoscopic records from [facility] requested. On protonix/carafate Started on clinimix Will restart Morphine for during the day and the Fentanyl at night Continue Benadryl Will switch zofran to 4mg every 4 hours scheduled with Decadron 4 mg every 4 hours scheduled for nausea as well as itching FERNY ZHANG APRN Feb 25, 2022 12:09
[2022-02-25] MEDS: morphine INJ 4 MG/ML 1 ML (VIAL/SYRINGE) IVP PRN ×3 (12:56→21:55)
[2022-02-25 16:05] VITALS: BP 145/89
[2022-02-25] MEDS: HYDROcodone/APAP 5 MG/325 MG (LORTAB) TAB PO PRN (16:13)
[2022-02-25] MEDS: ONDANSETRON 4 MG/2 ML (SDV) Z0FRAN IVP SCH ×3 (16:13→23:11)
[2022-02-25] MEDS: rOPINIRole 1 MG (REQUIP) TABLET PO SCH (19:52)
[2022-02-25 23:23] VITALS: BP 124/78
[2022-02-26] MEDS: morphine INJ 4 MG/ML 1 ML (VIAL/SYRINGE) IVP PRN ×6 (03:45→23:55)
[2022-02-26] MEDS: ONDANSETRON 4 MG/2 ML (SDV) Z0FRAN IVP SCH ×6 (03:45→23:55)
[2022-02-26] MEDS: inSUlin ASPART (NovoLOG) 1 UNIT/0.01 ML (CHARGE PER UNIT) SC SCH ×4 (05:38→23:56)
[2022-02-26] MEDS: PROMETHAZINE INJ 25 MG/ML (PHENERGAN) AMP IVP PRN ×3 (05:38→14:04)
[2022-02-26] MEDS: SUCRALFATE 1 GM (CARAFATE) TAB PO SCH ×4 (05:38→20:16)
--- NOTE | 2022-02-26 07:10 | Progress Note - Surgery ---
DAVID ALMONTE 02/26/22 0710: Subjective Date Seen by a Provider: Feb 26, 2022 Time Seen by a Provider: 07:05 Subjective/Events-last exam Patient is awake and alert in her chair this morning. Patient reports that their nausea is unchanged, with one episode of emesis last night. Patient reports epigastric pain with tenderness on palpation. Patient also reports occasional LLQ pain when laying on her left side. Review of Systems General: No Chills, No Night Sweats HEENT: No Head Aches, No Visual Changes Pulmonary: No Dyspnea, No Cough Cardiovascular: No: Chest Pain, Palpitations Gastrointestinal: Nausea, Vomiting, Abdominal Pain Genitourinary: No Dysuria, No Frequency Musculoskeletal: No: neck pain, shoulder pain Neurological: No: Numbness, Incoordination Objective Exam Vital Signs Date Time Temp Pulse Resp B/P (MAP) Pulse Ox O2 Delivery O2 Flow Rate FiO2 02/25/22 23:23 36.2 99 18 124/78 (93) 97 Room Air 02/25/22 20:00 Room Air 02/25/22 16:05 36.2 78 19 145/89 (107) 99 Room Air 02/25/22 08:00 Room Air 02/25/22 07:29 35.7 64 18 123/82 (96) 98 Room Air I & O 02/26/22 07:00 Intake Total 1050 ml Balance 1050 ml Capillary Refill : NONE General Appearance: No Apparent Distress, WD/WN, Chronically ill HEENT: PERRL/EOMI, Normal ENT Inspection Neck: Normal Inspection, Supple Respiratory: Lungs Clear, Normal Breath Sounds Cardiovascular: No Murmur, Tachycardia Peripheral Pulses: 2+ Dorsalis Pedis (R), 2+ Left Dors-Pedis (L), 2+ Radial Pulses (R), 2+ Radial Pulses (L) Gastrointestinal: soft, tenderness (epigastric) Extremity: Normal Inspection, Normal Range of Motion Neurologic/Psychiatric: Alert, Oriented x3, No Motor/Sensory Deficits, Normal Mood/Affect Skin: Normal Color, Warm/Dry Lymphatic: No Adenopathy Results Lab Laboratory Tests 02/25/22 08:53: White Blood Count 6.0, Red Blood Count 4.49, Hemoglobin 11.9, Hematocrit 37, Mean Corpuscular Volume 83, Mean Corpuscular Hemoglobin 27, Mean Corpuscular Hemoglobin Concent 32, Red Cell Distribution Width 13.5, Platelet Count 225, Mean Platelet Volume 9.8, Immature Granulocyte % (Auto) 0, Neutrophils (%) (Auto) 45, Lymphocytes (%) (Auto) 47H, Monocytes (%) (Auto) 5, Eosinophils (%) (Auto) 3, Basophils (%) (Auto) 0, Neutrophils # (Auto) 2.7, Lymphocytes # (Auto) 2.8, Monocytes # (Auto) 0.3, Eosinophils # (Auto) 0.2, Basophils # (Auto) 0.0, Immature Granulocyte # (Auto) 0.0, Sodium Level 143, Potassium Level 4.0, Chloride Level 104, Carbon Dioxide Level 28, Anion Gap 11, Blood Urea Nitrogen 16, Creatinine 1.05, Estimat Glomerular Filtration Rate 70, BUN/Creatinine Ratio 15, Glucose Level 110H, Calcium Level 9.6, Corrected Calcium 9.7, Total Bilirubin 0.7, Aspartate Amino Transf (AST/SGOT) 25, Alanine Aminotransferase (ALT/SGPT) 44, Alkaline Phosphatase 82, Total Protein 7.0, Albumin 3.9 02/25/22 09:26: Glucometer 88 02/25/22 15:23: Glucometer 81 02/25/22 19:20: Glucometer 139H 02/25/22 23:16: Glucometer 165H 02/25/22 23:18: Glucometer 178H 02/26/22 05:28: Glucometer 232H Assessment/Plan Assessment/Plan Assessment/Plan Chronic pancreatitis Intractable nausea/vomiting Epigastric Abdominal pain Maintain IV fluids. Continue antiemetics Continue pain control Endoscopic records from [facility] requested. Continue protonix/carafate Continue clinimix LINDSEY MARROQUIN DO 02/26/22 1440: Supervisory-Addendum Brief Verification & Attestation Participated in pt care: other (duplicate note) Personally performed: other (duplicate note) Care discussed with: other (duplicate note) Procedures: n/a duplicate note DAVID ALMONTE Feb 26, 2022 07:10 LINDSEY MARROQUIN DO Feb 26, 2022 14:40
--- NOTE | 2022-02-26 07:18 | Progress Note - Surgery ---
MARTITA PAL 02/26/22 0718: Subjective Date Seen by a Provider: Feb 26, 2022 Time Seen by a Provider: 07:00 Subjective/Events-last exam Patient is feeling the same. She still has epigastric abdominal pain rated 9/10 that feels like it radiates straight into her pack. She threw up this morning and said it was "brownish" but had no blood. Her last BM was 13 days ago. She is now endorsing dysuria and believes she has a UTI. Her nausea is still persistent and she is asking to have her zofran dose increased. Review of Systems General: No Chills, No Night Sweats; Fatigue HEENT: Head Aches, Visual Changes (blurry vision after staring at phone and computer) Pulmonary: No Dyspnea, No Cough Cardiovascular: Lt Headedness; No: Chest Pain Gastrointestinal: Nausea, Vomiting, Abdominal Pain, Constipation; No: Hemato chezia Genitourinary: Dysuria; No Frequency, No Hematuria Musculoskeletal: shoulder pain, back pain Neurological: Weakness; No: Numbness Objective Exam Vital Signs Date Time Temp Pulse Resp B/P (MAP) Pulse Ox O2 Delivery O2 Flow Rate FiO2 02/25/22 23:23 36.2 99 18 124/78 (93) 97 Room Air 02/25/22 20:00 Room Air 02/25/22 16:05 36.2 78 19 145/89 (107) 99 Room Air 02/25/22 08:00 Room Air 02/25/22 07:29 35.7 64 18 123/82 (96) 98 Room Air I & O 02/26/22 06:59 Intake Total 1050 ml Balance 1050 ml Capillary Refill : NONE General Appearance: Chronically ill, Mild Distress, Obese HEENT: PERRL/EOMI, Pale Conjunctivae (L), Pale Conjunctivae (R) Neck: Non Tender, Supple Respiratory: Lungs Clear, Normal Breath Sounds, No Accessory Muscle Use, No Respiratory Distress Cardiovascular: Regular Rate, Rhythm, No Murmur, Tachycardia Peripheral Pulses: 2+ Dorsalis Pedis (R), 2+ Left Dors-Pedis (L), 2+ Radial Pulses (R), 2+ Radial Pulses (L) Gastrointestinal: soft, tenderness (epigastric, RLQ and LLQ), other (bruising noted on abdomen b/l, patient said that is where they have been doing insulin injection) Extremity: Non Tender, No Calf Tenderness, No Pedal Edema Neurologic/Psychiatric: Alert, Oriented x3, Depressed Affect Skin: Warm/Dry, Pallor Lymphatic: No Adenopathy Results Lab Laboratory Tests 02/25/22 08:53: White Blood Count 6.0, Red Blood Count 4.49, Hemoglobin 11.9, Hematocrit 37, Mean Corpuscular Volume 83, Mean Corpuscular Hemoglobin 27, Mean Corpuscular Hemoglobin Concent 32, Red Cell Distribution Width 13.5, Platelet Count 225, Mean Platelet Volume 9.8, Immature Granulocyte % (Auto) 0, Neutrophils (%) (Auto) 45, Lymphocytes (%) (Auto) 47H, Monocytes (%) (Auto) 5, Eosinophils (%) (Auto) 3, Basophils (%) (Auto) 0, Neutrophils # (Auto) 2.7, Lymphocytes # (Auto) 2.8, Monocytes # (Auto) 0.3, Eosinophils # (Auto) 0.2, Basophils # (Auto) 0.0, Immature Granulocyte # (Auto) 0.0, Sodium Level 143, Potassium Level 4.0, C hloride Level 104, Carbon Dioxide Level 28, Anion Gap 11, Blood Urea Nitrogen 16, Creatinine 1.05, Estimat Glomerular Filtration Rate 70, BUN/Creatinine Ratio 15, Glucose Level 110H, Calcium Level 9.6, Corrected Calcium 9.7, Total Bili shepherd 0.7, Aspartate Amino Transf (AST/SGOT) 25, Alanine Aminotransferase (ALT/SGPT) 44, Alkaline Phosphatase 82, Total Protein 7.0, Albumin 3.9 02/25/22 09:26: Glucometer 88 02/25/22 15:23: Glucometer 81 02/25/22 19:20: Glucometer 139H 02/25/22 23:16: Glucometer 165H 02/25/22 23:18: Glucometer 178H 02/26/22 05:28: Glucometer 232H Assessment/Plan Assessment/Plan Assessment/Plan Chronic pancreatitis Intractable nausea/vomiting Epigastric Abdominal pain Maintain IV fluids. Increase zofran to 8mg q4 hours IV. Continue pain control w ith morphine and fentanyl. ERCP records from [facility] requested. Patient requested clarification on possible transfer to [facility]. DEONDRE MARROQUIN DO 02/26/22 1444: Subjective Time Seen by a Provider: 12:22 Subjective/Events-last exam Pt seen and examined, states she still has constant abdominal pain and is asking if she can get her pain meds scheduled "like they did at , cause now I have to ask for them everytime". States she still cannot hold anything down, anything that she takes PO causes severe nausea and vomiting. States her doctor at told her "with my kind of pancreas, enzymes don't have to be elevated". Review of Systems General: No Chills, No Night Sweats; Fatigue HEENT: Head Aches, Visual Changes (blurry vision after staring at phone and computer) Pulmonary: No Dyspnea, No Cough Cardiovascular: Lt Headedness; No: Chest Pain Gastrointestinal: Nausea, Vomiting, Abdominal Pain, Constipation; No: Hematochezia Genitourinary: Dysuria; No Frequency, No Hematuria Musculoskeletal: shoulder pain, back pain Neurological: Weakness; No: Numbness Objective Exam General Appearance: Chronically ill, Mild Distress, Obese HEENT: PERRL/EOMI, Pale Conjunctivae (L), Pale Conjunctivae (R) Respiratory: Lungs Clear, Normal Breath Sounds, No Accessory Muscle Use, No Respiratory Distress Cardiovascular: Regular Rate, Rhythm, No Murmur Gastrointestinal: soft, tenderness (epigastric, RLQ and LLQ), other (bruising noted on abdomen b/l, patient said that is where they have been doing insulin injection) Extremity: Non Tender, No Calf Tenderness, No Pedal Edema Neurologic/Psychiatric: Alert, Oriented x3, Depressed Affect Assessment/Plan Assessment/Plan Assessment/Plan Chronic pancreatitis Intractable nausea/vomiting Epigastric Abdominal pain Maintain IV fluids. Increase zofran to 8mg q4 hours IV. Continue pain control with morphine and fentanyl. ERCP records from requested. Patient requested clarification on possible transfer to [facility]. I am not sure there is anything we can do for her here, I agree with sending her to [place] for GI. Supervisory-Addendum Brief Verification & Attestation Participated in pt care: history, MDM, physical Personally performed: exam, history, MDM, supervision of care Care discussed with: Medical Student Procedures: n/a Verification and Attestation of Medical Student E/M Service A medical student performed and documented this service. I then reviewed and verified all information documented by the medical student and made modifications to such information, when appropriate. I personally performed a physical exam, medical decision making and then discussed any differences between the notes and made revisions as necessary to create one note. Deondre Marroquin , 02/26/22 , 14:44 MARTITA PAL Feb 26, 2022 07:18 DEONDRE MARROQUIN DO Feb 26, 2022 14:44
[2022-02-26] MEDS: PANTOPRAZOLE 40 MG (PROTONIX) VIAL IV SCH (07:55)
[2022-02-26] MEDS: AA 4.25% W/LYTES IN D5W IV SOL 1,000 ML IV SCH ×2 (07:55→16:40)
[2022-02-26 08:00] VITALS: BP 121/63
[2022-02-26] MEDS: diphenhydrAMINE 50 MG/ML INJ (BENADRYL) IV PRN ×2 (08:01→14:04)
[2022-02-26] MEDS: ENOXAPARIN 40 MG/0.4 ML (LOVENOX) SYR SC SCH ×2 (09:24→21:31)
--- NOTE | 2022-02-26 14:43 | Progress Note ---
Subjective Subjective/Events-last exam Pt seen at 1157: Pt states she took a pill last night and ever since then has been worse again, pain and vomiting. She also notes the Decadron wallace in the IV. She feels she is sometimes having some word finding difficulty and blurry vision when she tries to use her phone. Objective Exam Last Set of Vital Signs Vital Signs Date Time Temp Pulse Resp B/P (MAP) Pulse Ox O2 Delivery O2 Flow Rate FiO2 02/26/22 08:00 36.3 88 20 121/63 (82) 93 Room Air Capillary Refill : NONE I&O Intake and Output 02/25/22 23:59 Intake Total 1100 ml Balance 1100 ml Intake Oral 100 ml IV Total 1000 ml # Voids 5 General: Alert, No Acute Distress Lungs: Clear to Auscultation, Normal Air Movement Heart: Regular Rate, No Murmurs Abdomen: Normal Bowel Sounds, Soft Extremities: No Edema Neuro: Normal Speech Psych/Mental Status: Mood NL Results/Procedures Lab Laboratory Tests 02/25/22 15:23: Glucometer 81 02/25/22 19:20: Glucometer 139H 02/25/22 23:16: Glucometer 165H 02/25/22 23:18: Glucometer 178H 02/26/22 05:28: Glucometer 232H 02/26/22 11:21: Glucometer 238H Radiology Date of Exam:02/14/22 ABDOMEN/KUB 1VIEW INDICATION: 36-year-old female with recent EGD. Patient has been having abdominal pain, nausea, and vomiting. COMPARISONS: 01/10/2022 FINDINGS: KUB shows the lung bases to be clear. The bowel gas pattern is normal. There is no organomegaly or abnormal calcifications. There are multiple clips in the right upper quadrant from previous cholecystectomy. IMPRESSION: Normal bowel gas pattern. There is a previous cholecystectomy. Dictated by: Dictated on workstation # [id number] Dict: 02/15/22 0603 Trans: 02/15/22 07 CINDY [id number] Interpreted by: TR GOMEZ MD Electronically signed by: TR GOMEZ MD 02/15/22 07 Assessment/Plan Assessment/Plan (1) Nausea & vomiting Status: Chronic Assessment & Plan: Chronic issue for patient, has been admitted at for same, follows with GI at and uses promethazine and ondansetron orally at home 02/17: Would schedule meds for the next 24hrs 02/18: Worsening, changed to NPO 02/26: continues to report being unable to tolerate any PO except for ropinorole in spite of receiving dexamethasone 4 mg IV q4, promethazine 25 mg IV q6h prn, ondansetron 4 mg IV q4h prn, has been started on IV clinimix. She and family are asking about a feeding tube. She is wanting to transfer to in [place] due to her previous GI leaving and wanting to avoid travel, has contacted [facility] and reports they told her they can see her outpatient but need referral. Given difficult to manage and complex GI history suspect it would be good for her to be at a facility with GI, she would like to go to [facility] in [place] if possible, called them and they are full, will reassess tomorrow. Qualifiers: Qualified Codes: R11.2 - Nausea with vomiting, unspecified (2) Acute on chronic pancreatitis Status: Acute Assessment & Plan: Chronic pancreatitis and chronic baseline abdominal pain with complex history including EUS, celiac plexus block, MRI enterography normal, GET nml (08/2020), treated with rifaximin for 2 weeks for possible SIBO without improvement, followed by GI at . Initial plan: CLD and will advance as tolerated. Patient administered LR (150 ml/hr IV) for fluid replacement therapy. Lortab and morphine sulfate administered for pain. 02/17: Lipase is resolved, labs improving, will try and get another IV in patient, she is nervous about not being able to stay hydrated at home 02/18: LFTs increasing, CT abdomen/pelvis ordered due to increasing abdominal pain and unable to tolerate PO- showed nondilated fluid filled loops of small bowel in left hemiabdomen which may represent enteritis, no bowel obstruction. 02/26: still complaining of pain, liver enzymes and lipase normal. Receiving morphine 4 mg IV q4 prn, fairly regularly. Did not tolerate fentanyl well per her report. (3) Diabetes mellitus, type 2 Status: Chronic Assessment & Plan: Currently not tolerating PO and has had low blood sugar. Sliding scale insulin as needed. Qualifiers: Qualified Codes: E11.65 - Type 2 diabetes mellitus with hyperglycemia (4) Restless leg Status: Chronic (5) History of renal cell cancer Status: Chronic (6) Chronic pancreatitis Status: Chronic (7) DVT prophylaxis Status: Acute CARMEN GIBBS MD Feb 26, 2022 14:43
[2022-02-26 16:00] VITALS: BP 129/64
[2022-02-26] MEDS: rOPINIRole 1 MG (REQUIP) TABLET PO SCH (20:16)
[2022-02-26 23:59] VITALS: BP 125/59
[2022-02-27] MEDS: diphenhydrAMINE 50 MG/ML INJ (BENADRYL) IV PRN ×2 (00:01→22:18)
[2022-02-27] MEDS: ONDANSETRON 4 MG/2 ML (SDV) Z0FRAN IVP SCH ×6 (03:16→23:57)
[2022-02-27] MEDS: morphine INJ 4 MG/ML 1 ML (VIAL/SYRINGE) IVP PRN ×3 (04:17→21:45)
[2022-02-27] MEDS: SUCRALFATE 1 GM (CARAFATE) TAB PO SCH ×4 (06:10→19:59)
[2022-02-27] MEDS: inSUlin ASPART (NovoLOG) 1 UNIT/0.01 ML (CHARGE PER UNIT) SC SCH ×3 (06:20→21:44)
[2022-02-27 07:25] VITALS: BP 126/79
--- NOTE | 2022-02-27 07:59 | Progress Note - Surgery ---
MARTITA PAL 02/27/22 0759: Subjective Date Seen by a Provider: Feb 27, 2022 Time Seen by a Provider: 07:00 Subjective/Events-last exam Patient is experiencing worsened nausea today. She believes this is because she did not get Phenergan last night. Epigastric abdominal pain is rated 9/10 and radiates straight through into her back. The abdominal pain and nausea kept her up all night. She has not had a BM. Review of Systems General: Chills; No Night Sweats HEENT: Head Aches; No Dysphasia; Sore Throat (when she gets steroid in IV she says it wallace in her throat) Pulmonary: No Dyspnea, No Cough Cardiovascular: Lt Headedness; No: Chest Pain Gastrointestinal: Nausea, Abdominal Pain Genitourinary: Dysuria; No Hematuria Musculoskeletal: shoulder pain (from covid vaccine), back pain; No: neck pain Neurological: Weakness; No: Confusion Objective Exam Vital Signs Date Time Temp Pulse Resp B/P (MAP) Pulse Ox O2 Delivery O2 Flow Rate FiO2 02/27/22 07:25 36.4 90 18 126/79 (95) 93 Room Air 02/26/22 23:59 36.6 79 18 125/59 (81) 95 Room Air 02/26/22 19:40 Room Air 02/26/22 16:00 36.8 75 18 129/64 (85) 94 Room Air 02/26/22 08:00 36.3 88 20 121/63 (82) 93 Room Air 02/26/22 08:00 Room Air I & O 02/27/22 07:00 Intake Total 3000 ml Output Total 1200 ml Balance 1800 ml Capillary Refill : NONE General Appearance: Chronically ill, Mild Distress, Obese HEENT: PERRL/EOMI, Pale Conjunctivae (L), Pale Conjunctivae (R) Neck: Non Tender, Supple Respiratory: Lungs Clear, Normal Breath Sounds, No Accessory Muscle Use, No Respiratory Distress Cardiovascular: Regular Rate, Rhythm, No Murmur Peripheral Pulses: 2+ Dorsalis Pedis (R), 2+ Left Dors-Pedis (L), 2+ Radial Pulses (R), 2+ Radial Pulses (L) Gastrointestinal: soft, tenderness (epigastric, LLQ), other (bruising b/l, patient says this is where they have been giving lovenox injection) Extremity: Non Tender, No Calf Tenderness, No Pedal Edema Neurologic/Psychiatric: Alert, Oriented x3, Depressed Affect Skin: Warm/Dry, Pallor Lymphatic: No Adenopathy Results Lab Laboratory Tests 02/26/22 11:21: Glucometer 238H 02/26/22 15:37: Glucometer 262H 02/26/22 17:09: Glucometer 295H 02/26/22 23:06: Glucometer 377H 02/27/22 06:12: Glucometer 377H Assessment/Plan Assessment/Plan Assessment/Plan Chronic pancreatitis Intractable nausea/vomiting Epigastric Abdominal pain Maintain IV fluids/caloric agent. Increase zofran to 8mg q4 hours IV. Continue pain control with morphine and fentanyl. ERCP records from [facility] requested. Transfer to [facility] to see GI. DEONDRE ROMAN DO 02/27/22 1322: Subjective Time Seen by a Provider: 11:33 Subjective/Events-last exam Pt seen and examined, states she still has nausea, vomiting and pain. Nothing is helping and she did not get meds last night, "which is making everything worse". She wants to get to GI doctor in [place]. Review of Systems General: Chills HEENT: Head Aches, Sore Throat (when she gets steroid in IV she says it wallace in her throat) Pulmonary: No Dyspnea, No Cough Cardiovascular: Lt Headedness; No: Chest Pain Gastrointestinal: Nausea, Vomiting, Abdominal Pain Genitourinary: Dysuria Musculoskeletal: shoulder pain (from covid vaccine), back pain; No: neck pain Neurological: Weakness, Confusion Objective Exam General Appearance: Chronically ill, Mild Distress, Obese HEENT: Pale Conjunctivae (L), Pale Conjunctivae (R) Respiratory: Lungs Clear, Normal Breath Sounds, No Accessory Muscle Use, No Respiratory Distress Cardiovascular: Regular Rate, Rhythm, No Murmur Gastrointestinal: soft, tenderness (epigastric, LLQ), other (bruising b/l, patient says this is where they have been giving lovenox injection) Extremity: No Calf Tenderness, No Pedal Edema Neurologic/Psychiatric: Alert, Oriented x3, Depressed Affect Skin: Warm/Dry, Pallor Assessment/Plan Assessment/Plan Assessment/Plan Chronic pancreatitis Intractable nausea/vomiting Epigastric Abdominal pain Maintain IV fluids/caloric agent. Increase zofran to 8mg q4 hours IV. Continue pain control with morphine and fentanyl. ERCP records from [facility] requested. Transfer to [facility] to see GI. Will sign off, nothing surgical to do at this time. Would not recommend PEG or Dobhoff tube. Supervisory-Addendum Brief Verification & Attestation Participated in pt care: history, MDM, physical Personally performed: exam, history, MDM, supervision of care Care discussed with: Medical Student Procedures: n/a Verification and Attestation of Medical Student E/M Service A medical student performed and documented this service. I then reviewed and verified all information documented by the medical student and made modifications to such information, when appropriate. I personally performed a physical exam, medical decision making and then discussed any differences between the notes and made revisions as necessary to create one note. Deondre Roman , 02/27/22 , 13:22 MARTITA PAL Feb 27, 2022 07:59 DEONDRE ROMAN DO Feb 27, 2022 13:22
[2022-02-27] MEDS: PROMETHAZINE INJ 25 MG/ML (PHENERGAN) AMP IVP PRN ×2 (08:31→21:45)
[2022-02-27] MEDS: PANTOPRAZOLE 40 MG (PROTONIX) VIAL IV SCH (08:32)
[2022-02-27 08:37] LABS: HEMATOCRIT 38 % (35-52); HEMOGLOBIN 12.3 g/dL (11.5-16.0); MEAN CORPUSCULAR HEMOGLOBIN 27 pg (25-34); MEAN CORPUSCULAR HGB CONC 32 g/dL (32-36); MEAN CORPUSCULAR VOLUME 83 fL (80-99); MEAN PLATELET VOLUME 10.3 fL (9.0-12.2); PLATELET COUNT 249 10^3/uL (130-400); WHITE BLOOD COUNT 15.1 10^3/uL (4.3-11.0)
[2022-02-27] MEDS: ENOXAPARIN 40 MG/0.4 ML (LOVENOX) SYR SC SCH ×2 (08:41→21:45)
[2022-02-27] MEDS: PROMETHAZINE INJ 25 MG/ML (PHENERGAN) AMP IM PRN ×2 (08:42→16:04)
[2022-02-27] MEDS: AA 4.25% W/LYTES IN D5W IV SOL 1,000 ML IV SCH ×3 (08:42→17:32)
[2022-02-27 08:57] LABS: ALANINE AMINOTRANSFERASE 27 U/L (0-55); ALBUMIN 5.2 GM/DL (3.2-4.5); ALKALINE PHOSPHATASE 82 U/L (40-136); BILIRUBIN,TOTAL 0.4 MG/DL (0.1-1.0); BUN/CREATININE RATIO 32; CALCIUM 12.5 MG/DL (8.5-10.1); CARBON DIOXIDE 28 MMOL/L (21-32); CHLORIDE 106 MMOL/L (98-107); CREATININE SERUM 1.14 MG/DL (0.60-1.30); GFR ESTIMATED 64; POTASSIUM 4.4 MMOL/L (3.6-5.0); SODIUM 141 MMOL/L (135-145); TOTAL PROTEIN 8.5 GM/DL (6.4-8.2)
[2022-02-27 09:15] LABS: GLUCOSE 525 MG/DL (70-105)
[2022-02-27] MEDS ORDERED: BISACODYL 10 MG SUPP (DULCOLAX) PR NR (13:30)
--- NOTE | 2022-02-27 14:50 | Progress Note ---
Subjective Subjective/Events-last exam Janeth is frustrated, states the nurse overnight refused to give her promethazine, but that she said she hadn't asked for promethazine and Janeth states that isn't true, she did ask for it and her friend can back that up. She believes due to this she has been worse since midnight and therefore got very little sleep last night and feels terrible. Objective Exam Last Set of Vital Signs Vital Signs Date Time Temp Pulse Resp B/P (MAP) Pulse Ox O2 Delivery O2 Flow Rate FiO2 02/27/22 08:57 93 Room Air 02/27/22 07:25 36.4 90 18 126/79 (95) Capillary Refill : NONE I&O Intake and Output 02/27/22 00:00 Intake Total 3000 ml Balance 3000 ml Intake Oral 0 ml IV Total 3000 ml # Voids 7 General: Alert, No Acute Distress, Other (walking in room, talking on cell phone at time of entering room for exam) Lungs: Clear to Auscultation, Normal Air Movement Heart: Regular Rate, No Murmurs Abdomen: Normal Bowel Sounds, Soft, Other (diffuse ttp) Extremities: No Edema Neuro: Normal Speech Psych/Mental Status: Mood NL Results/Procedures Lab Laboratory Tests 02/26/22 15:37: Glucometer 262H 02/26/22 17:09: Glucometer 295H 02/26/22 23:06: Glucometer 377H 02/27/22 06:12: Glucometer 377H 02/27/22 08:29: White Blood Count 15.1H, Red Blood Count 4.60, Hemoglobin 12.3, Hematocrit 38, Mean Corpuscular Volume 83, Mean Corpuscular Hemoglobin 27, Mean Corpuscular Hemoglobin Concent 32, Red Cell Distribution Width 13.6, Platelet Count 249, Mean Platelet Volume 10.3, Sodium Level 141, Potassium Level 4.4, Chloride Level 106, Carbon Dioxide Level 28, Anion Gap 7, Blood Urea Nitrogen 37H, Creatinine 1.14, Estimat Glomerular Filtration Rate 64, BUN/Creatinine Ratio 32, Glucose Level 525*H, Calcium Level 12.5H, Corrected Calcium , Total Bilirubin 0.4, Aspartate Amino Transf (AST/SGOT) 11, Alanine Aminotransferase (ALT/SGPT) 27, Alkaline Phosphatase 82, Total Protein 8.5H, Albumin 5.2H 02/27/22 10:47: Glucometer 325H Radiology Date of Exam:02/14/22 ABDOMEN/KUB 1VIEW INDICATION: 36-year-old female with recent EGD. Patient has been having abdominal pain, nausea, and vomiting. COMPARISONS: 01/10/2022 FINDINGS: KUB shows the lung bases to be clear. The bowel gas pattern is normal. There is no organomegaly or abnormal calcifications. There are multiple clips in the right upper quadrant from previous cholecystectomy. IMPRESSION: Normal bowel gas pattern. There is a previous cholecystectomy. Dictated by: Dictated on workstation # [id number] Dict: 02/15/22 0603 Trans: 02/15/22 0707 CINDY [id number] Interpreted by: TR GOMEZ MD Electronically signed by: TR GOMEZ MD 02/15/22 0707 Assessment/Plan Assessment/Plan (1) Nausea & vomiting Status: Chronic Assessment & Plan: Chronic issue for patient, has been admitted at for same, follows with GI at and uses promethazine and ondansetron orally at home 02/17: Would schedule meds for the next 24hrs 02/18: Worsening, changed to NPO 02/26: continues to report being unable to tolerate any PO except for ropinorole in spite of receiving dexamethasone 4 mg IV q4, promethazine 25 mg IV q6h prn, ondansetron 4 mg IV q4h prn, has been started on IV clinimix. She and family are asking about a feeding tube. She is wanting to transfer to in [place] due to her previous GI leaving and wanting to avoid travel, has contacted [facility] and reports they told her they can see her outpatient but need referral. Given difficult to manage and complex GI history suspect it would be good for her to be at a facility with GI, she would like to go to [facility] in [place] if possible, called them and they are full, will reassess tomorrow. 02/27: reviewed records from 09/2020 hospitalization: Readmitted for abdominal issues, CT unchanged, lipase nml, EGD w/ EUS on 10/05 consistent with chronic pancreatitis. Started Creon, anti-nausea meds adjusted. Glucagon level checked to rule out glucagonoma with new DM and was normal. Considered port/PICC placement to facilitate IVF and anti-emetics, but ultimately decided risks of thrombus and infection outweighed benefit as she was able to keep up with PO intake throughout hospitalization. Psychiatry consulted for considering TCA, pt declined. Started dicyclomine, Creon, pantoprazole promethazine, pyridoxine; reviewed records for EUS done 02/12/22: showed partial view of esophagus nml, stomach nml, duodenum including ampulla nml, entire pancreas with chronic pancreatitis changes, pancreas divisum, left lobe of liver and celiac plexus okay. Fatty liver. -Still receiving clinmix, has been tolerating oral carafate, receiving IV pantoprazole, promethazine and ondansetron, decreased dexamethasone to q8h. Given above record review, will try to start a TCA at this time, also per previous GI notes they had recommended scopalamine which she stated would not stay on, will reattempt. Finally, when she was hospitalized at 08/2020 they were able to successfully treat wtih NG and miralax with improvement. Her KUB on 02/20 did show stool, will repeat and if stool still present consider NG and miralax as done previously. Have called [facility] 02/26 for transfer, full; [facility] 02/27 and they are full and have call to today that is being reviewed, waiting call back. Qualifiers: Qualified Codes: R11.2 - Nausea with vomiting, unspecified (2) Acute on chronic pancreatitis Status: Acute Assessment & Plan: Chronic pancreatitis and chronic baseline abdominal pain with complex history including EUS, celiac plexus block, MRI enterography normal, GET nml (08/2020), treated with rifaximin for 2 weeks for possible SIBO without improvement, followed by GI at . Initial plan: CLD and will advance as tolerated. Patient administered LR (150 ml/hr IV) for fluid replacement therapy. Lortab and morphine sulfate administered for pain. 02/17: Lipase is resolved, labs improving, will try and get another IV in patient, she is nervous about not being able to stay hydrated at home 02/18: LFTs increasing, CT abdomen/pelvis ordered due to increasing abdominal pain and unable to tolerate PO- showed nondilated fluid filled loops of small bowel in left hemiabdomen which may represent enteritis, no bowel obstruction. 02/26: still complaining of pain, liver enzymes and lipase normal. Receiving m orphine 4 mg IV q4 prn, fairly regularly. Did not tolerate fentanyl well per her report. (3) Diabetes mellitus, type 2 Status: Chronic Assessment & Plan: Currently not tolerating PO well and has had low blood sugar initially, now high, started levemir 02/27. Sliding scale insulin as needed. Qualifiers: Qualified Codes: E11.65 - Type 2 diabetes mellitus with hyperglycemia (4) Restless leg Status: Chronic Assessment & Plan: Tolerating oral ropinorole, states it does not hurt her stomach like other meds do. (5) History of renal cell cancer Status: Chronic (6) Chronic pancreatitis Status: Chronic Assessment & Plan: See above for record review. Requiring frequent IV morphine, will encourage to try PO hydrocodone which she uses at baseline so we can attempt to get her to GI even if that is outpatient with TPN on d/c if needed. (7) DVT prophylaxis Status: Acute Assessment & Plan: Enoxaparin CARMEN GIBBS MD Feb 27, 2022 14:50
[2022-02-27] MEDS ORDERED: SCOPOLAMINE 1.5 MG (TRANSDERM-SCOP) PATCH TD NR (15:00)
[2022-02-27 15:30] VITALS: BP 128/63
[2022-02-27 15:57] LABS: CLARITY,URINE CLEAR; COLOR,URINE YELLOW; PROTEIN,URINE NEGATIVE (NEGATIVE)
[2022-02-27 15:58] LABS: BACTERIA,URINE NEGATIVE /HPF; BILIRUBIN,URINE NEGATIVE (NEGATIVE); GLUCOSE, URINE (UA) 3+ (NEGATIVE); KETONES,URINE NEGATIVE (NEGATIVE); LEUKOCYTE ESTERASE ,URINE NEGATIVE (NEGATIVE); NITRITE,URINE NEGATIVE (NEGATIVE); SQUAMOUS EPITHELIAL CELL,UR RARE /HPF; WBC,URINE RARE /HPF
[2022-02-27] MEDS: HYDROcodone/APAP 5 MG/325 MG (LORTAB) TAB PO PRN ×2 (16:05→19:59)
--- NOTE | 2022-02-27 16:58 | Diagnostic Imaging Report ---
INDICATION: Abdominal pain. Supine images of the abdomen are obtained. Comparison is made to study of 02/20/2022. FINDINGS: There is a moderate amount of stool throughout the right colon and transverse colon. Left colon and sigmoid colon are distended with gas. Surgical clips are seen in the upper abdomen and right lower quadrant. Surgical suture is seen in the left abdomen. There is no evidence free intraperitoneal gas or pneumatosis. IMPRESSION: Findings are suggestive of constipation. Possibility of partial obstruction in the left mid abdomen near suture line cannot be fully excluded. Consideration could be given to follow-up contrast enema if indicated. Dictated by: Dictated on workstation # [id number]
[2022-02-27] MEDS ORDERED: inSUlin ASPART (NovoLOG) 1 UNIT/0.01 ML (CHARGE PER UNIT) ONE (17:25)
[2022-02-27] MEDS ORDERED: inSUlin ASPART (NovoLOG) 1 UNIT/0.01 ML (CHARGE PER UNIT) SC ONE (17:30)
[2022-02-27] MEDS: rOPINIRole 1 MG (REQUIP) TABLET PO SCH (19:59)
[2022-02-27] MEDS: AMITRIPTYLINE 10 MG (ELAVIL) TAB PO SCH (20:10)
[2022-02-27 23:56] VITALS: BP 123/84
[2022-02-28] MEDS: morphine INJ 4 MG/ML 1 ML (VIAL/SYRINGE) IVP PRN ×2 (01:58→07:46)
[2022-02-28] MEDS: PROMETHAZINE INJ 25 MG/ML (PHENERGAN) AMP IVP PRN ×3 (02:02→18:03)
[2022-02-28] MEDS: ONDANSETRON 4 MG/2 ML (SDV) Z0FRAN IVP SCH ×2 (03:23→07:46)
[2022-02-28] MEDS: AA 4.25% W/LYTES IN D5W IV SOL 1,000 ML IV SCH ×3 (03:23→12:59)
[2022-02-28] MEDS: diphenhydrAMINE 50 MG/ML INJ (BENADRYL) IV PRN ×2 (04:52→18:03)
[2022-02-28] MEDS: SUCRALFATE 1 GM (CARAFATE) TAB PO SCH ×4 (04:52→20:33)
[2022-02-28] MEDS: inSUlin ASPART (NovoLOG) 1 UNIT/0.01 ML (CHARGE PER UNIT) SC SCH ×4 (04:53→20:34)
[2022-02-28 05:35] LABS: POTASSIUM 4.9 MMOL/L (3.6-5.0)
[2022-02-28 05:37] LABS: CALCIUM 9.1 MG/DL (8.5-10.1)
[2022-02-28 05:40] LABS: BILIRUBIN,TOTAL 0.3 MG/DL (0.1-1.0)
[2022-02-28 05:41] LABS: CREATININE SERUM 0.99 MG/DL (0.60-1.30)
[2022-02-28 07:51] VITALS: BP 129/68
[2022-02-28 07:54] LABS: HEMATOCRIT 36 % (35-52); HEMOGLOBIN 11.6 g/dL (11.5-16.0); MEAN CORPUSCULAR HEMOGLOBIN 27 pg (25-34); MEAN CORPUSCULAR HGB CONC 32 g/dL (32-36); MEAN CORPUSCULAR VOLUME 83 fL (80-99); MEAN PLATELET VOLUME 10.1 fL (9.0-12.2); PLATELET COUNT 236 10^3/uL (130-400); WHITE BLOOD COUNT 10.9 10^3/uL (4.3-11.0)
[2022-02-28] MEDS: PANTOPRAZOLE 40 MG (PROTONIX) VIAL IV SCH (08:07)
[2022-02-28] MEDS ORDERED: DIATRIZOATE MEGLUM/SODIUM 37% 120 ML (GASTROGRAFIN) PO NR (09:00)
[2022-02-28] MEDS: ENOXAPARIN 40 MG/0.4 ML (LOVENOX) SYR SC SCH ×2 (10:35→21:37)
[2022-02-28] MEDS: HYDROcodone/APAP 5 MG/325 MG (LORTAB) TAB PO PRN ×3 (10:36→20:35)
--- NOTE | 2022-02-28 10:50 | Diagnostic Imaging Report ---
INDICATION: Small bowel obstruction. TECHNIQUE: The patient ingested 120 mL of gastrografin contrast mixed with 120 mm of water and serial radiographs of the abdomen were then obtained. FINDINGS: The preliminary radiograph of the abdomen does show moderate stool in the colon. There are surgical clips in the right upper quadrant. Post ingestion images demonstrate contrast within the stomach with prompt emptying into the proximal small bowel loops. There appears to be normal transit of contrast throughout the small bowel loops with contrast reaching the right colon in approximately 90 minutes. The small bowel is normal in caliber. The mucosal fold pattern is unremarkable. There is no evidence of obstruction. IMPRESSION: Unremarkable small bowel study. Dictated by: Dictated on workstation # [id number]
--- NOTE | 2022-02-28 11:12 | Progress Note ---
Subjective Subjective/Events-last exam Pt states she had a bad night, her mouth is hurting on one side and has bumps and feels very dry. She is concerned about thrush infection. Objective Exam Last Set of Vital Signs Vital Signs Date Time Temp Pulse Resp B/P (MAP) Pulse Ox O2 Delivery O2 Flow Rate FiO2 02/28/22 08:32 Room Air 02/28/22 07:51 36.0 58 18 129/68 (88) 96 Capillary Refill : NONE I&O Intake and Output 02/28/22 00:00 Intake Total 2340 ml Output Total 2200 ml Balance 140 ml Intake Oral 340 ml IV Total 2000 ml Output Urine Total 2200 ml # Voids 2 General: Alert, No Acute Distress HEENT: Other (tongue dry, no white patches on oral mucosa, no lesions seen) Lungs: Clear to Auscultation, Normal Air Movement Heart: Regular Rate, No Murmurs Abdomen: Soft Neuro: Normal Speech Psych/Mental Status: Mood NL Results/Procedures Lab Laboratory Tests 02/27/22 15:30: Urine Color YELLOW, Urine Clarity CLEAR, Urine pH 6.0, Urine Specific [place] 1.020, Urine Protein NEGATIVE, Urine Glucose (UA) 3+H, Urine Ketones NEGATIVE, Urine Nitrite NEGATIVE, Urine Bilirubin NEGATIVE, Urine Urobilinogen 0.2, Urine Leukocyte Esterase NEGATIVE, Urine RBC (Auto) NEGATIVE, Urine RBC NONE, Urine WBC RARE, Urine Squamous Epithelial Cells RARE, Urine Crystals NONE, Urine Bacteria NEGATIVE, Urine Casts NONE, Urine Mucus NEGATIVE, Urine Culture Indicated NO 02/27/22 17:04: Glucometer 450*H 02/27/22 21:30: Glucometer 424*H 02/28/22 04:46: Glucometer 380H 02/28/22 05:13: Sodium Level 137, Potassium Level 4.9, Chloride Level 104, Carbon Dioxide Level 20L, Anion Gap 13, Blood Urea Nitrogen 31H, Creatinine 0.99, Estimat Glomerular Filtration Rate 75, BUN/Creatinine Ratio 31, Glucose Level 464*H, Calcium Level 9.1, Corrected Calcium 9.1, Magnesium Level 2.3, Total Bilirubin 0.3, Aspartate Amino Transf (AST/SGOT) 20, Alanine Aminotransferase (ALT/SGPT) 32, Alkaline Phosphatase 76, Total Protein 7.0, Albumin 4.0 02/28/22 07:45: White Blood Count 10.9, Red Blood Count 4.35, Hemoglobin 11.6, Hematocrit 36, Mean Corpuscular Volume 83, Mean Corpuscular Hemoglobin 27, Mean Corpuscular Hemoglobin Concent 32, Red Cell Distribution Width 13.6, Platelet Count 236, Mean Platelet Volume 10.1 02/28/22 10:18: Glucometer 295H Radiology Date of Exam:02/14/22 ABDOMEN/KUB 1VIEW INDICATION: 36-year-old female with recent EGD. Patient has been having abdominal pain, nausea, and vomiting. COMPARISONS: 01/10/2022 FINDINGS: KUB shows the lung bases to be clear. The bowel gas pattern is normal. There is no organomegaly or abnormal calcifications. There are multiple clips in the right upper quadrant from previous cholecystectomy. IMPRESSION: Normal bowel gas pattern. There is a previous cholecystectomy. Dictated by: Dictated on workstation # [id number] Dict: 02/15/22602 Trans: 02/15/22 0707 [id number] [id number] Interpreted by: TR GOMEZ MD Electronically signed by: TR GOMEZ MD 02/15/22 0707 Assessment/Plan Assessment/Plan (1) Nausea & vomiting Status: Chronic Assessment & Plan: Chronic issue for patient, has been admitted at for same, follows with GI at and uses promethazine and ondansetron orally at home 02/17: Would schedule meds for the next 24hrs 02/18: Worsening, changed to NPO 02/26: continues to report being unable to tolerate any PO except for ropinorole in spite of receiving dexamethasone 4 mg IV q4, promethazine 25 mg IV q6h prn, ondansetron 4 mg IV q4h prn, has been started on IV clinimix. She and family are asking about a feeding tube. She is wanting to transfer to in [place] due to her previous GI leaving and wanting to avoid travel, has contacted [facility] and reports they told her they can see her outpatient but need referral. Given difficult to manage and complex GI history suspect it would be good for her to be at a facility with GI, she would like to go to [facility] in [place] if possible, called them and they are full, will reassess tomorrow. 02/27: reviewed records from 09/2020 hospitalization: Readmitted for abdominal issues, CT unchanged, lipase nml, EGD w/ EUS on 10/05 consistent with chronic pancreatitis. Started Creon, anti-nausea meds adjusted. Glucagon level checked to rule out glucagonoma with new DM and was normal. Considered port/PICC placement to facilitate IVF and anti-emetics, but ultimately decided risks of thrombus and infection outweighed benefit as she was able to keep up with PO intake throughout hospitalization. Psychiatry consulted for considering TCA, pt declined. Started dicyclomine, Creon, pantoprazole promethazine, pyridoxine; reviewed records for EUS done 02/12/22: showed partial view of esophagus nml, stomach nml, duodenum including ampulla nml, entire pancreas with chronic pancreatitis changes, pancreas divisum, left lobe of liver and celiac plexus okay. Fatty liver. -Still receiving clinmix, has been tolerating oral carafate, receiving IV pantoprazole, promethazine and ondansetron, decreased dexamethasone to q8h. Given above record review, will try to start a TCA at this time, also per previous GI notes they had recommended scopalamine which she stated would not stay on, will reattempt. Finally, when she was hospitalized at 08/2020 they were able to successfully treat wtih NG and miralax with improvement. Her KUB on 02/20 did show stool, will repeat and if stool still present consider NG and miralax as done previously. Have called [facility] for transfer, full; [facility] 02/27 and they are full and have call to today that is being reviewed, waiting call back. 02/28: reviewed and due to bed capacity unable to transfer, checked with [facility], also full. KUB yesterday did show significant stool but couldn't rule out partial SBO, small bowel follow through done this am and unremarkable, will start miralax TID and change ondansetron to PO dissolving as she has been able to keep down hydrocodone, amitriptyline, ropinorole and some fluids. Decrease Decadron to q12 hours. Qualifiers: Qualified Codes: R11.2 - Nausea with vomiting, unspecified (2) Acute on chronic pancreatitis Status: Acute Assessment & Plan: Chronic pancreatitis and chronic baseline abdominal pain with complex history including EUS, celiac plexus block, MRI enterography normal, GET nml (08/2020), treated with rifaximin for 2 weeks for possible SIBO without improvement, followed by GI at . Initial plan: CLD and will advance as tolerated. Patient administered LR (150 ml/hr IV) for fluid replacement therapy. Lortab and morphine sulfate administered for pain. 02/17: Lipase is resolved, labs improving, will try and get another IV in patient, she is nervous about not being able to stay hydrated at home 02/18: LFTs increasing, CT abdomen/pelvis ordered due to increasing abdominal pain and unable to tolerate PO- showed nondilated fluid filled loops of small bowel in left hemiabdomen which may represent enteritis, no bowel obstruction. 02/26: still complaining of pain, liver enzymes and lipase normal. Receiving morphine 4 mg IV q4 prn, fairly regularly. Did not tolerate fentanyl well per her report. (3) Diabetes mellitus, type 2 Status: Chronic Assessment & Plan: Currently not tolerating PO well and has had low blood sugar initially, now high, started levemir 02/27. Sliding scale insulin as needed. 02/28: continues to have marked hyperglycemia, increased levemir dose and increased dose of sliding scale, will decrease Clinimix rate as she is beginning to tolerate oral. Qualifiers: Qualified Codes: E11.65 - Type 2 diabetes mellitus with hyperglycemia (4) Restless leg Status: Chronic Assessment & Plan: Tolerating oral ropinorole, states it does not hurt her stomach like other meds do. (5) History of renal cell cancer Status: Chronic (6) Chronic pancreatitis Status: Chronic Assessment & Plan: See above for record review. Requiring frequent IV morphine, will encourage to try PO hydrocodone which she uses at baseline so we can att empt to get her to GI even if that is outpatient with TPN on d/c if needed. (7) DVT prophylaxis Status: Acute Assessment & Plan: Enoxaparin CARMEN GIBBS MD Feb 28, 2022 11:12
[2022-02-28] MEDS ORDERED: polyethylene glycoL POWDER 17 GM (MIRALAX) PACK PO ONE (11:15)
[2022-02-28] MEDS ORDERED: MAGIC MOUTHWASH, ADULT 155 ML BOTTLE PO SCH (13:00)
[2022-02-28] MEDS: MAGIC MOUTHWASH (ADULT) PO SCH ×12 (14:36→20:39)
[2022-02-28] MEDS: ONDANSETRON 4 MG (ZOFRAN) ORAL DISSOLVE TAB PO PRN ×2 (14:48→23:04)
[2022-02-28 15:25] VITALS: BP 147/76
[2022-02-28] MEDS: AMITRIPTYLINE 10 MG (ELAVIL) TAB PO SCH (20:22)
[2022-02-28] MEDS: rOPINIRole 1 MG (REQUIP) TABLET PO SCH (20:33)
[2022-02-28] MEDS ORDERED: SERTRALINE 100 MG (ZOLOFT) TAB PO SCH (21:00)
[2022-03-01] MEDS: PROMETHAZINE INJ 25 MG/ML (PHENERGAN) AMP IVP PRN ×3 (00:12→09:15)
[2022-03-01] MEDS: AA 4.25% W/LYTES IN D5W IV SOL 1,000 ML IV SCH ×2 (00:13→06:00)
[2022-03-01 00:17] VITALS: BP 135/81
[2022-03-01] MEDS: diphenhydrAMINE 50 MG/ML INJ (BENADRYL) IV PRN ×2 (02:16→12:04)
[2022-03-01] MEDS: SUCRALFATE 1 GM (CARAFATE) TAB PO SCH ×2 (05:15→11:59)
[2022-03-01] MEDS: inSUlin ASPART (NovoLOG) 1 UNIT/0.01 ML (CHARGE PER UNIT) SC SCH ×2 (05:16→11:17)
[2022-03-01 06:06] LABS: HEMATOCRIT 35 % (35-52); HEMOGLOBIN 11.8 g/dL (11.5-16.0); MEAN CORPUSCULAR HEMOGLOBIN 27 pg (25-34); MEAN CORPUSCULAR HGB CONC 33 g/dL (32-36); MEAN CORPUSCULAR VOLUME 81 fL (80-99); MEAN PLATELET VOLUME 10.3 fL (9.0-12.2); PLATELET COUNT 211 10^3/uL (130-400); WHITE BLOOD COUNT 7.3 10^3/uL (4.3-11.0)
[2022-03-01 06:18] LABS: POTASSIUM 4.3 MMOL/L (3.6-5.0)
[2022-03-01 06:22] LABS: BILIRUBIN,TOTAL 0.3 MG/DL (0.1-1.0)
[2022-03-01 06:24] LABS: CREATININE SERUM 0.9 MG/DL (0.60-1.30)
[2022-03-01 06:27] LABS: MAGNESIUM 2.2 MG/DL (1.6-2.4)
[2022-03-01] MEDS: ONDANSETRON 4 MG (ZOFRAN) ORAL DISSOLVE TAB PO PRN (06:56)
[2022-03-01] MEDS ORDERED: inSUlin ASPART (NovoLOG) 1 UNIT/0.01 ML (CHARGE PER UNIT) SC NR (07:00)
[2022-03-01 07:50] VITALS: BP 133/64
[2022-03-01] MEDS: PANTOPRAZOLE 40 MG (PROTONIX) VIAL IV SCH (08:58)
[2022-03-01] MEDS: MAGIC MOUTHWASH (ADULT) PO SCH ×4 (08:59)
[2022-03-01] MEDS: ENOXAPARIN 40 MG/0.4 ML (LOVENOX) SYR SC SCH (08:59)
[2022-03-01] MEDS ORDERED: AMT10T PO (11:24)
[2022-03-01] MEDS ORDERED: SUCR1TAB PO (11:24)
[2022-03-01] MEDS ORDERED: PANT40TA52 PO (11:24)
--- NOTE | 2022-03-01 11:27 | Discharge Summary ---
Discharge Summary Hospital Course Problems/Diagnosis: (1) Nausea & vomiting Status: Chronic Assessment & Plan: Chronic issue for patient, has been admitted at for same, follows with GI at and uses promethazine and ondansetron orally at home 02/17: Would schedule meds for the next 24hrs 02/18: Worsening, changed to NPO 02/26: continues to report being unable to tolerate any PO except for ropinorole in spite of receiving dexamethasone 4 mg IV q4, promethazine 25 mg IV q6h prn, ondansetron 4 mg IV q4h prn, has been started on IV clinimix. She and family are asking about a feeding tube. She is wanting to transfer to in [place] due to her previous GI leaving and wanting to avoid travel, has contacted [facility] and reports they told her they can see her outpatient but need referral. Given difficult to manage and complex GI history suspect it would be good for her to be at a facility with GI, she would like to go to [facility] in [place] if possible, called them and they are full, will reassess tomorrow. 02/27: reviewed records from 09/2020 hospitalization: Readmitted for abdominal issues, CT unchanged, lipase nml, EGD w/ EUS on 10/05 consistent with chronic pancreatitis. Started Creon, anti-nausea meds adjusted. Glucagon level checked to rule out glucagonoma with new DM and was normal. Considered port/PICC placement to facilitate IVF and anti-emetics, but ultimately decided risks of thrombus and infection outweighed benefit as she was able to keep up with PO intake throughout hospitalization. Psychiatry consulted for considering TCA, pt declined. Started dicyclomine, Creon, pantoprazole promethazine, pyridoxine; reviewed records for EUS done 02/12/22: showed partial view of esophagus nml, stomach nml, duodenum including ampulla nml, entire pancreas with chronic pancr eatitis changes, pancreas divisum, left lobe of liver and celiac plexus okay. Fatty liver. -Still receiving clinmix, has been tolerating oral carafate, receiving IV pantoprazole, promethazine and ondansetron, decreased dexamethasone to q8h. Give n above record review, will try to start a TCA at this time, also per previous GI notes they had recommended scopalamine which she stated would not stay on, will reattempt. Finally, when she was hospitalized at 08/2020 they were able to successfully treat wtih NG and miralax with improvement. Her KUB on 02/20 did show stool, will repeat and if stool still present consider NG and miralax as done previously. Have called [facility] for transfer, full; [facility] 02/27 and they are full and have call to today that is being reviewed, waiting call back. 02/28: [facility] reviewed and due to bed capacity unable to transfer, checked with [facility], also full. KUB yesterday did show significant stool but couldn't rule out partial SBO, small bowel follow through done this am and unremarkable, will start miralax TID and change ondansetron to PO dissolving as she has been able to keep down hydrocodone, amitriptyline, ropinorole and some fluids. Decrease Decadron to q12 hours. 03/01: tolerating liquids and oral zofran, has had a few bowel movements, will d/c on ondansetron, promethazine, hydrocodone and amitriptyline. D/C decadron. Set up for weekly IV infusion of saline as needed at outpatient infusion center to try to avoid repeated ER visits. Qualifiers: Qualified Codes: R11.2 - Nausea with vomiting, unspecified (2) Acute on chronic pancreatitis Status: Acute Assessment & Plan: Chronic pancreatitis and chronic baseline abdominal pain with complex history including EUS, celiac plexus block, MRI enterography normal, GET nml (08/2020), treated with rifaximin for 2 weeks for possible SIBO without improvement, followed by GI at . Initial plan: CLD and will advance as tolerated. Patient administered LR (150 ml/hr IV) for fluid replacement therapy. Lortab and morphine sulfate administered for pain. 02/17: Lipase is resolved, labs improving, will try and get another IV in patient, she is nervous about not being able to stay hydrated at home 02/18: LFTs increasing, CT abdomen/pelvis ordered due to increasing abdominal pain and unable to tolerate PO- showed nondilated fluid filled loops of small bowel in left hemiabdomen which may represent enteritis, no bowel obstruction. 02/26: still complaining of pain, liver enzymes and lipase normal. Receiving morphine 4 mg IV q4 prn, fairly regularly. Did not tolerate fentanyl well per her report. 03/01: managing pain with hydrocodone as needed (3) Diabetes mellitus, type 2 Status: Chronic Assessment & Plan: Currently not tolerating PO well and has had low blood sugar initially, now high, started levemir 02/27. Sliding scale insulin as needed. 02/28: continues to have marked hyperglycemia, increased levemir dose and increased dose of sliding scale, will decrease Clinimix rate as she is beginning to tolerate oral. 03/01 able to tolerate liquids and asking about food, d/c with directions to advance diet slowly Qualifiers: Qualified Codes: E11.65 - Type 2 diabetes mellitus with hyperglycemia (4) Restless leg Status: Chronic Assessment & Plan: Tolerating oral ropinorole, states it does not hurt her stomach like other meds do. (5) History of renal cell cancer Status: Chronic (6) Chronic pancreatitis Status: Chronic Assessment & Plan: See above for record review. Hospital Course Date of Admission: Feb 18, 2022 at 15:23 Admission Diagnosis : Family Physician/Provider: Carmen Gibbs MD Date of Discharge: 03/01/22 Discharge Diagnosis: See problem list Hospital Course: See problem list Labs and Pending Lab Test: Laboratory Tests 02/28/22 15:28: Glucometer 321H 03/01/22 05:03: Glucometer 368H 03/01/22 05:50: White Blood Count 7.3, Red Blood Count 4.35, Hemoglobin 11.8, Hematocrit 35, Mean Corpuscular Volume 81, Mean Corpuscular Hemoglobin 27, Mean Corpuscular Hemoglobin Concent 33, Red Cell Distribution Width 13.3, Platelet Count 211, Mean Platelet Volume 10.3, Sodium Level 136, Potassium Level 4.3, Chloride Level 103, Carbon Dioxide Level 20L, Anion Gap 13, Blood Urea Nitrogen 28H, Creatinine 0.90, Estimat Glomerular Filtration Rate 84, BUN/Creatinine Ratio 31, Glucose Level 410*H, Calcium Level 9.0, Corrected Calcium 9.0, Magnesium Level 2.2, Total Bilirubin 0.3, Aspartate Amino Transf (AST/SGOT) 36H, Alanine Aminotransferase (ALT/SGPT) 50, Alkaline Phosphatase 76, Total Protein 7.0, Albumin 4.0 03/01/22 11:13: Glucometer 177H Home Meds Active Pantoprazole Sodium 40 Mg Tablet. 40 Mg PO DAILY Amitriptyline HCl 10 Mg Tablet 10 Mg PO HS Sucralfate 1 Gram Tablet 1 Gm PO ACHS Reported Gabapentin 100 Mg Capsule 100 Mg PO HS PRN Hydrocodone-Acetamin 5-325 mg (Hydrocodone/Acetaminophen) 5 Mg-325 Mg Tablet 1 Tab PO Q6H PRN Albuterol Sulfate 2.5 Mg/3 Ml (0.083 %) Vial.neb 3 Ml PO Q8H PRN Benzonatate 100 Mg Capsule 100 Mg PO TID PRN Metoclopramide HCl 10 Mg Tablet 10 Mg PO Q6H PRN ONLY TAKES WHEN PROMETHAZINE AND ONDANSETRON HAVE NOT RELIEVED SYMPTOMS Lilliam Samaniego 24,000 Units Capsule (Lipase/Protease/Amylase) 24-76-120K Capsule. 1 Ea PO HS Pregabalin 75 Mg Capsule 75 Mg PO BID PRN Ventolin Hfa (Albuterol Sulfate) 90 Mcg Hfa.aer.ad 2 Puff INH Q6H PRN Cyclobenzaprine HCl 10 Mg Tablet 10 Mg PO HS PRN Atorvastatin Calcium 40 Mg Tablet 40 Mg PO HS Cetirizine HCl 10 Mg Tablet 10 Mg PO HS Ozempic (Semaglutide) 0.25 Mg/0.2 Ml Pen.injctr 0.5 Mg SQ MON Cyanocobalamin Injection (Cyanocobalamin) 1,000 Mcg/Ml Inj 1,000 Mcg IM MONTHLY Promethazine Tablet (Promethazine HCl) 25 Mg Tablet 25 Mg PO Q6H PRN Janumet Xr 50-1,000 mg Tablet (Sitagliptin Phos/Metformin HCl) 50 Mg-1,000 Mg Tbmp.24hr 2 Tab PO HS Benadryl (Diphenhydramine HCl) 25 Mg Capsule 50 Mg PO HS TAKES 2 (25MG) CAPS Tylenol Extra Strength (Acetaminophen) 500 Mg Tablet 1,000 Mg PO Q8H PRN Ondansetron Odt (Ondansetron) 8 Mg Tab.rapdis 8 Mg PO Q8H PRN Ropinirole HCl 4 Mg Tablet 4 Mg PO HS Assessment/Pt DC Instructions Follow up with Dr. Gibbs within a week of discharge. Outpatient GI referral will be placed. Discharge Diet: Eat Small Frequent Meals, Avoid Fatty Foods Activity as Tolerated: Yes Discharge Physical Examination Allergies: Coded Allergies: meperidine (Verified Allergy, Unknown, 01/24/22) penicillin G (Verified Allergy, Unknown, 01/24/22) prochlorperazine (Verified Allergy, Unknown, 01/24/22) trimethobenzamide (Unverified Allergy, Unknown, 01/24/22) vancomycin (Verified Adverse Reaction, Intermediate, severe itching, 01/24/22) fentanyl (Verified Adverse Reaction, Unknown, HALLUCINATIONS, 02/27/22) General Appearance: No Apparent Distress Respiratory: Lungs Clear, Normal Breath Sounds Cardiovascular: Regular Rate, Rhythm, No Murmur Skin: Normal Color, Warm/Dry Neurologic/Psychiatric: Alert, Normal Mood/Affect CARMEN GIBBS MD Mar 01, 2022 11:27
[2022-03-01 12:40] VITALS: BP 133/64
[2022-03-02] MEDS ORDERED: SCOPOLAMINE PATCH REMOVAL TP SCH (15:00)
== END 2022-03-01 12:40 | disposition home or self-care (01) | DRG 439 ==
LOC: EDUNIT# 21:42 → ER 21:44 → 4TH 02-15 03:29 → OBSVTOIN 02-18 15:23 → 4TH 02-23 11:31
PROVIDERS: ADMIT Family Medicine; ATTEND Family Medicine
DX: K85.90 Acute pancreatitis without necrosis or infection, unspecified (principal); Z68.42 Body mass index [BMI] 45.0-49.9, adult; N39.0 Urinary tract infection, site not specified; K86.1 Other chronic pancreatitis; R11.2 Nausea with vomiting, unspecified; E66.9 Obesity, unspecified; E11.649 Type 2 diabetes mellitus with hypoglycemia without coma; G25.81 Restless legs syndrome; Z85.528 Personal history of other malignant neoplasm of kidney; G43.909 Migraine, unspecified, not intractable, without status migrainosus; G89.29 Other chronic pain; M54.9 Dorsalgia, unspecified; F41.9 Anxiety disorder, unspecified; F32.A Depression, unspecified; E86.0 Dehydration; K29.70 Gastritis, unspecified, without bleeding
CPT/HCPCS: 36410; 36415; 36569; 74018; 74019; 74176; 74250; 76937; 80048; 80053; 81000; 82150; 82947; 83690; 83735; 85025; 85027; 85652; 86141; 93005; G0378

== ENCOUNTER 2022-03-07 20:34 | Outpatient (CLI) | payer MEDICARE, MEDICAID ==
[~2022-03-07] VITALS: Ht 160 cm; Wt 117.2 kg
[~2022-03-07 20:34] MED LIST changes: +ALBU18HF2 INH; +ALBU2.5V4 PO; +AMT10T PO; +ATOR40TA70 PO; +BENZ-36 PO; +GABA-486 PO; +MTC10T PO; +PANT40TA52 PO; +PREG75CA75 PO; +SUCR1TAB PO
[2022-03-07 20:47] VITALS: BP 130/82
[2022-03-07 20:57] VITALS: BP 130/82
== END 2022-03-07 22:19 | disposition home or self-care (01) ==
LOC: 4THo 20:34 → UNDOADMOB 20:34 → 4TH 20:34 → 4THo 22:19
PROVIDERS: ATTEND Family Medicine
DX: R11.2 Nausea with vomiting, unspecified (principal)

== ENCOUNTER 2022-03-08 09:12 | Outpatient (RCR) | payer MEDICARE, MEDICAID ==
--- NOTE | 2022-02-18 14:43 | Anesthesia-Procedure Note ---
Procedures/Interventions Procedure Start/Stop/Diagnosis Date of Procedure: Feb 18, 2022 Start Time: 14:30 Stop Time: 14:45 Central Line/IV Access IV : Location: Right Site: Foot IV Catheter Type: Peripheral IV IV Catheter Gauge: 22 JENI HUMPHREYS CRNA Feb 18, 2022 14:43
== END 2022-03-16 | disposition home or self-care (01) ==
LOC: ONC 09:12
PROVIDERS: ATTEND Internal Medicine Hematology & Oncology
DX: C64.2 Malignant neoplasm of left kidney, except renal pelvis (principal); E78.5 Hyperlipidemia, unspecified; I10 Essential (primary) hypertension; R91.1 Solitary pulmonary nodule; K76.0 Fatty (change of) liver, not elsewhere classified; K46.9 Unspecified abdominal hernia without obstruction or gangrene; K86.1 Other chronic pancreatitis; J45.909 Unspecified asthma, uncomplicated; E66.01 Morbid (severe) obesity due to excess calories; Z98.890 Other specified postprocedural states
CPT/HCPCS: 99213

== ENCOUNTER 2022-03-15 11:04 | Outpatient (RCR) | payer MEDICARE, MEDICAID ==
[2022-03-15] MEDS ORDERED: NS IV 1000 ML 1,000 ML IV ONE (11:30)
[2022-03-15 12:01] LABS: CALCIUM 9.7 MG/DL (8.5-10.1); CREATININE SERUM 0.83 MG/DL (0.60-1.30); POTASSIUM 4.1 MMOL/L (3.6-5.0)
[2022-03-15 12:09] VITALS: BP 120/62
== END 2022-03-16 ==
LOC: SDC 11:04
PROVIDERS: ATTEND Family Medicine
DX: R10.2 Pelvic and perineal pain (principal)
CPT/HCPCS: 36415; 80048; 96360

== ENCOUNTER 2022-03-28 09:49 | Outpatient (RCR) | payer MEDICARE, MEDICAID ==
[~2022-03-28] VITALS: Ht 160 cm; Wt 111.4 kg
[2022-03-28] MEDS ORDERED: NS IV 1000 ML 1,000 ML ONE (10:11)
[2022-03-28] MEDS ORDERED: NS IV 1000 ML 1,000 ML IV SCH (10:30)
[2022-03-28 10:37] LABS: CALCIUM 9.2 MG/DL (8.5-10.1); CREATININE SERUM 0.79 MG/DL (0.60-1.30); POTASSIUM 4.4 MMOL/L (3.6-5.0)
[2022-03-28 11:40] VITALS: BP 122/87
== END 2022-04-16 | disposition home or self-care (01) ==
LOC: SDC 09:49
PROVIDERS: ATTEND Family Medicine
DX: R11.2 Nausea with vomiting, unspecified (principal)
CPT/HCPCS: 36415; 80048; 96360; 96367

== ENCOUNTER 2022-04-20 22:36 | Emergency (ER) | payer MEDICARE, MEDICAID ==
[~2022-04-20] VITALS: Ht 160 cm; Wt 111.0 kg
[2022-04-20 23:23] LABS: BILIRUBIN,URINE NEGATIVE (NEGATIVE); CLARITY,URINE CLOUDY; COLOR,URINE YELLOW; GLUCOSE, URINE (UA) NEGATIVE (NEGATIVE); KETONES,URINE NEGATIVE (NEGATIVE); LEUKOCYTE ESTERASE ,URINE 1+ (NEGATIVE); NITRITE,URINE NEGATIVE (NEGATIVE); PH,URINE 5.5 (5-9); PROTEIN,URINE NEGATIVE (NEGATIVE)
[2022-04-20 23:36] LABS: BACTERIA,URINE FEW /HPF
[2022-04-20 23:37] LABS: CALCIUM OXALATE CRYSTALS,UR MODERATE /LPF; SQUAMOUS EPITHELIAL CELL,UR 0-2 /HPF
[2022-04-21 00:17] LABS: BASOPHILS % (AUTO) 0 % (0-10); EOSINOPHILS # (AUTO) 0.2 10^3/uL (0.0-0.3); EOSINOPHILS % (AUTO) 2 % (0-10); HEMATOCRIT 35 % (35-52); HEMOGLOBIN 11.4 g/dL (11.5-16.0); LYMPHOCYTES % (AUTO) 41 % (12-44); MEAN CORPUSCULAR HEMOGLOBIN 27 pg (25-34); MEAN CORPUSCULAR HGB CONC 33 g/dL (32-36); MEAN CORPUSCULAR VOLUME 83 fL (80-99); MEAN PLATELET VOLUME 9.4 fL (9.0-12.2); MONOCYTES # (AUTO) 0.5 10^3/uL (0.0-1.0); MONOCYTES % (AUTO) 5 % (0-12); NEUTROPHILS % (AUTO) 51 % (42-75); PLATELET COUNT 282 10^3/uL (130-400); WHITE BLOOD COUNT 9.7 10^3/uL (4.3-11.0)
[2022-04-21 00:18] LABS: ALBUMIN 4.1 GM/DL (3.2-4.5)
[2022-04-21 00:19] LABS: POTASSIUM 3.7 MMOL/L (3.6-5.0)
[2022-04-21 00:20] LABS: CALCIUM 9.5 MG/DL (8.5-10.1)
[2022-04-21 00:21] LABS: TOTAL PROTEIN 7.1 GM/DL (6.4-8.2)
[2022-04-21 00:23] LABS: BILIRUBIN,TOTAL 0.3 MG/DL (0.1-1.0)
[2022-04-21 00:25] LABS: CREATININE SERUM 0.94 MG/DL (0.60-1.30)
[2022-04-21] MEDS ORDERED: cefTRIAXone 1 GM PRE-MIX 50 ML IV ONE (00:45)
[2022-04-21] MEDS ORDERED: CEFD300C3 PO (00:52)
--- NOTE | 2022-04-21 00:52 | ED GU-Female ---
General Chief Complaint: - Reproductive Stated Complaint: PAIN/BURNING WITH URINATION,RT SIDE LOW BACK PAIN Nursing Triage Note: pt ambulatory to room. states she started to have low right back pain on saturday night. yesterday and today she states she has had burning with urination. Allergies and Home Medications Allergies Coded Allergies: meperidine (Verified Allergy, Unknown, 01/24/22) penicillin G (Verified Allergy, Unknown, 01/24/22) prochlorperazine (Verified Allergy, Unknown, 01/24/22) trimethobenzamide (Unverified Allergy, Unknown, 01/24/22) vancomycin (Verified Adverse Reaction, Intermediate, severe itching, 01/24/22) fentanyl (Verified Adverse Reaction, Unknown, HALLUCINATIONS, 02/27/22) Patient Home Medication List Acetaminophen (Tylenol Extra Strength) 500 Mg Tablet, 1,000 MG PO Q8H PRN for PAIN-MILD (1-4), (Reported) Entered as Reported by: EMILIO SHEPPARD on 10/26/19 0812 Albuterol Sulfate (Ventolin Hfa) 90 Mcg Hfa.aer.ad, 2 PUFF INH Q6H PRN for SHORTNESS OF BREATH, (Reported) Entered as Reported by: CASSANDRA CHOPRA on 02/15/22 1215 Albuterol Sulfate (Albuterol Sulfate) 2.5 Mg/3 Ml (0.083 %) Vial.neb, 3 ML PO Q8H PRN for SHORTNESS OF BREATH, (Reported) Entered as Reported by: CASSANDRA CHOPRA on 02/15/22 1215 Amitriptyline HCl (Amitriptyline HCl) 10 Mg Tablet, 10 MG PO HS Prescribed by: CARMEN GIBBS on 03/01/22 1124 Atorvastatin Calcium (Atorvastatin Calcium) 40 Mg Tablet, 40 MG PO HS, (Reported) Entered as Reported by: CASSANDRA CHOPRA on 02/15/22 1215 Benzonatate (Benzonatate) 100 Mg Capsule, 100 MG PO TID PRN for COUGH, (Reported) Entered as Reported by: CASSANDRA CHOPRA on 02/15/22 1215 Cetirizine HCl (Cetirizine HCl) 10 Mg Tablet, 10 MG PO HS, (Reported) Entered as Reported by: CASSANDRA CHOPRA on 02/15/22 1215 Cyanocobalamin (Cyanocobalamin Injection) 1,000 Mcg/Ml Inj, 1,000 MCG IM MONTHLY, (Reported) Entered as Reported by: GRIFFIN ORTEGA on 07/24/21 1145 Diphenhydramine HCl (Benadryl) 25 Mg Capsule, 50 MG PO HS, (Reported) Entered as Reported by: EMILIO SHEPPARD on 10/26/19 0812 Hydrocodone/Acetaminophen (Hydrocodone-Acetamin 5-325 mg) 5 Mg-325 Mg Tablet, 1 TAB PO Q6H PRN for PAIN-MODERATE (5-7), (Reported) Entered as Reported by: CASSANDRA CHOPRA on 02/15/22 1215 Ondansetron (Ondansetron Odt) 8 Mg Tab.rapdis, 8 MG PO Q8H PRN for NAUSEA/ VOMITING-1ST LINE, (Reported) Entered as Reported by: EMILIO SHEPPARD on 10/26/19 0812 Pantoprazole Sodium (Pantoprazole Sodium) 40 Mg Tablet.dr, 40 MG PO DAILY Prescribed by: CARMEN GIBBS on 03/01/22 1124 Promethazine HCl (Promethazine Tablet) 25 Mg Tablet, 25 MG PO Q6H PRN for NAUSEA/VOMITING-2ND LINE, (Reported) Entered as Reported by: LEX HOSKINS on 12/07/20 0916 Ropinirole HCl (Ropinirole HCl) 4 Mg Tablet, 4 MG PO HS, (Reported) Entered as Reported by: LEX HOSKINS on 06/28/17 1010 Sitagliptin Phos/Metformin HCl (Janumet Xr 50-1,000 mg Tablet) 50 Mg-1,000 Mg Tbmp.24hr, 2 TAB PO HS, (Reported) Entered as Reported by: LEX HOSKINS on 12/07/20 0916 Sucralfate (Sucralfate) 1 Gram Tablet, 1 GM PO ACHS Prescribed by: CARMEN GIBBS on 03/01/22 1124 Past Gwlqsfs-Iwvefe-Oprzea Hx Patient Social History Tobacco Use?: No Use of E-Cig and/or Vaping dev: No Substance use?: No Alcohol Use?: No Immunizations Up To Date Tetanus Booster (TDap): Less than 5yrs PED Vaccines UTD: No Influenza Vaccine Up-to-Date: No; Not Current First/Initial COVID19 Vaccinat: UNKNOWN DATE Second COVID19 Vaccination Alvaro: UNKNOWN DATE Third COVID19 Vaccination Date: UNKNOWN DATE Seasonal Allergies Seasonal Allergies: No Past Medical History Surgery/Hospitalization HX: several surgeries including 1 kidney removal, appendectomy, cammie., and power port placement, POWER PORT REMOVAL, HYSTERECTOMY Surgeries: Yes (hernia repair x2, knee scopes, port placement) Adenoidectomy, Appendectomy, Gallbladder, Hysterectomy, Nephrectomy, Orthopedic, Tonsillectomy Respiratory: Yes Asthma Currently Using CPAP: No Currently Using BIPAP: No Cardiac: Yes Hypertension Neurological: Yes Headaches /Migraines Reproductive Disorders: Yes (HX ENDOMETRIOSIS ) 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: 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 [employer] History: Hysterectomy Sexually Transmitted Disease: No HIV/AIDS: No Genitourinary: Yes (S/P LEFT NEPHRECTOMY) UTI-Chronic Gastrointestinal: Yes (CHRONIC ABD PAIN/N/V./D) Abdominal Hernia, Gastroesophageal Reflux, Liver Disease/Jaundice, Obstructive Bowel, Pancreatitis, Chronic Diarrhea, Polyps Musculoskeletal: Yes (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) Chronic Back Pain Endocrine: Yes (OBESITY) Diabetes, Non-Insulin dep HEENT: No Loss of Vision: Denies Hearing Impairment: Denies Cancer: Yes Kidney Did You Recieve Any Treatments: Yes What Type of Treatment Did You: Surgical Intervention Psychosocial: Yes Anxiety, Depression Integumentary: No Herpes Blood Disorders: No Adverse Reaction/Blood Tranf: No (N/A) Family Medical History Cardiovascular disease 19 FATHER Completed stroke 19 FATHER Diabetes mellitus 19 FATHER Hypercholesterolemia 19 FATHER 19 MOTHER Hypertension 19 FATHER 19 MOTHER Neoplasm 19 MOTHER Psychosocial problem 19 FATHER 19 MOTHER No Pertinent Family Hx, Cancer, Diabetes, Hypertension PSH: -RIGHT KNEE SCOPE X 5 -LEFT KNEE SCOPE X 2 -TONSILLECTOMY / ADENOIDECTOMY -APPENDECTOMY -CHOLECYSTECTOMY -NASAL FRACTURE REPAIR -COCCYX REMOVAL -LEFT NEPHRECTOMY FOR MALIGNANCY -LEFT MID ABDOMEN INCISIONAL HERNIA REPAIR -DRAINAGE OF ABDOMINAL WALL ABSCESS -MULTIPLE EGD'S AND COLONOSCOPIES--LAST ONE DONE HERE 10/26/19 -HYSTERECTOMY / BILATERAL SALPINGO-OOPHORECTOMY 2007 -06/23/20--RIGHT CHEST WALL/SHOULDER INJECTION FOR THORACIC OUTLET SYNDROME--DONE IN -PORT REMOVED FROM LEFT CHEST 07/24/21 FOR NON-FUNCTIONING PORT-BY DR. MARROUQIN Physical Exam Vital Signs Vital Signs - First Documented 04/20/22 23:00 Temp 37.2 Pulse 89 Resp 16 B/P (MAP) 132/84 (100) Pulse Ox 98 Capillary Refill : Height, Weight, BMI Height: 5'3.00" Weight: 246lbs. 0oz. 111.460993iv; 43.00 BMI Method:Stated Progress/Results/Core Measures Suspected Sepsis SIRS Temperature: Pulse: 89 Respiratory Rate: 16 Laboratory Tests 04/20/22 23:55: White Blood Count 9.7 Blood Pressure 132 /84 Mean: 100 Laboratory Tests 04/20/22 23:55: Creatinine 0.94, Platelet Count 282, Total Bilirubin 0.3 Results/Orders Lab Results Laboratory Tests Test 04/20/22 23:14 04/20/22 23:55 Range/Units Urine Color YELLOW Urine Clarity CLOUDY Urine pH 5.5 5-9 Urine Specific [place] >=1.030 1.016-1.022 Urine Protein NEGATIVE NEGATIVE Urine Glucose (UA) NEGATIVE NEGATIVE Urine Ketones NEGATIVE NEGATIVE Urine Nitrite NEGATIVE NEGATIVE Urine Bilirubin NEGATIVE NEGATIVE Urine Urobilinogen 0.2 < = 1.0 MG/DL Urine Leukocyte Esterase 1+ H NEGATIVE Urine RBC (Auto) NEGATIVE NEGATIVE Urine RBC NONE /HPF Urine WBC 5-10 H /HPF Urine Squamous Epithelial Cells 0-2 /HPF Urine Crystals PRESENT H /LPF Urine Calcium Oxalate Crystals MODERATE H /LPF Urine Bacteria FEW H /HPF Urine Casts NONE /LPF Urine Mucus NEGATIVE /LPF Urine Culture Indicated YES White Blood Count 9.7 4.3-11.0 10^3/uL Red Blood Count 4.20 3.80-5.11 10^6/uL Hemoglobin 11.4 L 11.5-16.0 g/dL Hematocrit 35 35-52 % Mean Corpuscular Volume 83 80-99 fL Mean Corpuscular Hemoglobin 27 25-34 pg Mean Corpuscular Hemoglobin Concent 33 32-36 g/dL Red Cell Distribution Width 13.8 10.0-14.5 % Platelet Count 282 130-400 10^3/uL Mean Platelet Volume 9.4 9.0-12.2 fL Immature Granulocyte % (Auto) 0 % Neutrophils (%) (Auto) 51 42-75 % Lymphocytes (%) (Auto) 41 12-44 % Monocytes (%) (Auto) 5 0-12 % Eosinophils (%) (Auto) 2 0-10 % Basophils (%) (Auto) 0 0-10 % Neutrophils # (Auto) 5.0 1.8-7.8 10^3/uL Lymphocytes # (Auto) 4.0 1.0-4.0 10^3/uL Monocytes # (Auto) 0.5 0.0-1.0 10^3/uL Eosinophils # (Auto) 0.2 0.0-0.3 10^3/uL Basophils # (Auto) 0.0 0.0-0.1 10^3/uL Immature Granulocyte # (Auto) 0.0 0.0-0.1 10^3/uL Sodium Level 141 135-145 MMOL/L Potassium Level 3.7 3.6-5.0 MMOL/L Chloride Level 105 98-107 MMOL/L Carbon Dioxide Level 20 L 21-32 MMOL/L Anion Gap 16 H 5-14 MMOL/L Blood Urea Nitrogen 17 7-18 MG/DL Creatinine 0.94 0.60-1.30 MG/DL Estimat Glomerular Filtration Rate 80 BUN/Creatinine Ratio 18 Glucose Level 112 H 70-105 MG/DL Calcium Level 9.5 8.5-10.1 MG/DL Corrected Calcium 9.4 8.5-10.1 MG/DL Total Bilirubin 0.3 0.1-1.0 MG/DL Aspartate Amino Transf (AST/SGOT) 28 5-34 U/L Alanine Aminotransferase (ALT/SGPT) 38 0-55 U/L Alkaline Phosphatase 78 40-136 U/L Total Protein 7.1 6.4-8.2 GM/DL Albumin 4.1 3.2-4.5 GM/DL Amylase Level 68 25-125 U/L Lipase 50 8-78 U/L My Orders Orders - YAN CHAPARRO DO Ed Iv/Invasive Line Start (04/20/22 23:07) Amylase (04/20/22 23:07) Cbc With Automated Diff (04/20/22 23:07) Comprehensive Metabolic Panel (04/20/22 23:07) Lipase (04/20/22 23:07) Ua Culture If Indicated (04/20/22 23:07) Urine Culture (04/20/22 23:14) Ceftriaxone 1 Gm Pre-Mix (Rocephin 1 Gm (04/21/22 00:45) Vital Signs/I&O 04/20/22 23:00 Temp 37.2 Pulse 89 Resp 16 B/P (MAP) 132/84 (100) Pulse Ox 98 Capillary Refill : Blood Pressure Mean: 100 Departure Impression Primary Impression: Urinary tract infection Disposition: HOME, SELF-CARE Condition: Stable Departure-Patient Inst. Decision time for Depature: 00:40 Referrals: CARMEN GIBBS MD (PCP/Family) Primary Care Physician Patient Instructions: Urinary Tract Infection, Adult (DC) Add. Discharge Instructions: HOME, REST MOIST HEAT TO AREA AT 20 MINUTE INTERVALS TAKE YOUR HOME CYCLOBENZAPRINE MUSCLE RELAXANT EVERY 8 HOURS NEEDED FOR PAIN TAKE TYLENOL 1 GRAM 4 TIMES A DAY FOR PAIN FOLLOW UP WITH [facility]UR[facility], RETURN TO ER IF SYMPTOMS WORSEN All discharge instructions reviewed with patient and/or family. Voiced understanding. Scripts Cefdinir (Cefdinir) 300 Mg Capsule 300 MG PO BID, #20 CAP Prov: YAN CHAPARRO DO 04/21/22 YAN CHAPARRO DO Apr 21, 2022 00:52
[2022-04-21 01:35] VITALS: BP 152/76
== END 2022-04-21 01:35 | disposition home or self-care (01) ==
LOC: EDUNIT# 22:36 → ER 22:38
DX: N39.0 Urinary tract infection, site not specified (principal); Z90.5 Acquired absence of kidney; Z88.0 Allergy status to penicillin
CPT/HCPCS: 36415; 80053; 81000; 82150; 83690; 85025; 87088; 99282

== ENCOUNTER 2022-05-08 21:17 | Emergency (ER) | payer MEDICARE, MEDICAID ==
[~2022-05-08] VITALS: Ht 160 cm; Wt 111.0 kg
[2022-05-08 22:51] LABS: BASOPHILS % (AUTO) 0 % (0-10); EOSINOPHILS # (AUTO) 0.2 10^3/uL (0.0-0.3); EOSINOPHILS % (AUTO) 2 % (0-10); HEMATOCRIT 36 % (35-52); HEMOGLOBIN 11.8 g/dL (11.5-16.0); LYMPHOCYTES # (AUTO) 4.1 10^3/uL (1.0-4.0); LYMPHOCYTES % (AUTO) 41 % (12-44); MEAN CORPUSCULAR HEMOGLOBIN 27 pg (25-34); MEAN CORPUSCULAR HGB CONC 33 g/dL (32-36); MEAN CORPUSCULAR VOLUME 82 fL (80-99); MEAN PLATELET VOLUME 9.5 fL (9.0-12.2); MONOCYTES # (AUTO) 0.5 10^3/uL (0.0-1.0); MONOCYTES % (AUTO) 5 % (0-12); NEUTROPHILS # (AUTO) 5.1 10^3/uL (1.8-7.8); NEUTROPHILS % (AUTO) 51 % (42-75); PLATELET COUNT 272 10^3/uL (130-400)
[2022-05-08 22:51] LABS: BILIRUBIN,URINE NEGATIVE (NEGATIVE); CLARITY,URINE SL CLOUDY; COLOR,URINE YELLOW; GLUCOSE, URINE (UA) NEGATIVE (NEGATIVE); KETONES,URINE NEGATIVE (NEGATIVE); LEUKOCYTE ESTERASE ,URINE 2+ (NEGATIVE); NITRITE,URINE NEGATIVE (NEGATIVE); PH,URINE 5.5 (5-9); PROTEIN,URINE NEGATIVE (NEGATIVE)
--- NOTE | 2022-05-08 22:56 | ED General ---
General Chief Complaint: Abdominal/GI Problems Stated Complaint: PAIN ON RT SIDE Nursing Triage Note: PT AMB TO ED BY POV WITH C/O R RIB PAIN. REPORTS PAIN BEGAN YESTERDAY, WORSE OVER THE LAST 1.5 HRS. WORSE WHEN RAISING ARM AND TAKING A DEEP BREATH. DENIES INJURY, N/V/D, OR ANY OTHER SX AT THIS TIME. Source of Information: Patient History of Present Illness Date Seen by Provider: May 08, 2022 Time Seen by Provider: 22:13 Initial Comments PT ARRIVES VIA POV FROM HOME C/O PAIN TO RIGHT LATERAL CHEST/ RIBS SINCE YESTERDAY PAIN IS WORSE WITH MOVEMENTS OF TRUNK, MOVEMENT OF RIGHT ARM AND WITH DEEP BREATHS DOES NOT FEEL SHORT OF BREATH NO COUGH NO FEVER NO NAUSEA/VOMITING NO INJURY OR UNUSUAL ACTIVITY. PT WAS SEEN HERE ON FOR UTI WITH RIGHT FLANK PAIN --THOSE SYMPTOMS HAVE RESOLVED. CURRENT PAIN IS HIGHER THAN IT WAS ON PREVIOUS VISIT. TOOK 1 TYLENOL THIS MORNING, OTHERWISE HAS NOT TAKEN ANYTHING FOR PAIN PT HAS HAD MULTIPLE VISITS AND ADMITS FOR VARIOUS COMPLAINTS. SHE HAS NOT FOLLOWED UP WITH [facility] FOR MONTHS. SHE STATES SHE DOES HAVE AN APPOINTMENT TOMORROW WITH [employer] AT 1600 PT STATES SHE DID HAVE AN EGD LAST WEEK AT [facility], FOR CHRONIC PANCREATITIS, HAS FOLLOW UP APPOINTMENT NEXT SATURDAY. Allergies and Home Medications Allergies Coded Allergies: meperidine (Verified Allergy, Unknown, 01/24/22) penicillin G (Verified Allergy, Unknown, 01/24/22) prochlorperazine (Verified Allergy, Unknown, 01/24/22) trimethobenzamide (Unverified Allergy, Unknown, 01/24/22) vancomycin (Verified Adverse Reaction, Intermediate, severe itching, 01/24/22) fentanyl (Verified Adverse Reaction, Unknown, HALLUCINATIONS, 02/27/22) Patient Home Medication List Acetaminophen (Tylenol Extra Strength) 500 Mg Tablet, 1,000 MG PO Q8H PRN for PAIN-MILD (1-4), (Reported) Entered as Reported by: EMILIO SHEPPARD on 10/26/19 0812 Albuterol Sulfate (Ventolin Hfa) 90 Mcg Hfa.aer.ad, 2 PUFF INH Q6H PRN for SHORTNESS OF BREATH, (Reported) Entered as Reported by: CASSANDRA CHOPRA on 02/15/22 1215 Albuterol Sulfate (Albuterol Sulfate) 2.5 Mg/3 Ml (0.083 %) Vial.neb, 3 ML PO Q8H PRN for SHORTNESS OF BREATH, (Reported) Entered as Reported by: CASSANDRA CHOPRA on 02/15/22 1215 Amitriptyline HCl (Amitriptyline HCl) 10 Mg Tablet, 10 MG PO HS Prescribed by: CARMEN GIBBS on 03/01/22 1124 Atorvastatin Calcium (Atorvastatin Calcium) 40 Mg Tablet, 40 MG PO HS, (Reported) Entered as Reported by: CASSANDRA CHOPRA on 02/15/22 121 Benzonatate (Benzonatate) 100 Mg Capsule, 100 MG PO TID PRN for COUGH, (Reported) Entered as Reported by: CASSANDRA CHOPRA on 02/15/22 121 Cefdinir (Cefdinir) 300 Mg Capsule, 300 MG PO BID Prescribed by: YAN CHAPARRO on 04/21/22 0052 Cefdinir (Cefdinir) 300 Mg Capsule, 300 MG PO BID Prescribed by: YAN CHAPARRO on 05/08/22 2347 Cetirizine HCl (Cetirizine HCl) 10 Mg Tablet, 10 MG PO HS, (Reported) Entered as Reported by: CASSANDRA CHOPRA on 02/15/22 121 Cyanocobalamin (Cyanocobalamin Injection) 1,000 Mcg/Ml Inj, 1,000 MCG IM MONTHLY, (Reported) Entered as Reported by: GRIFFIN ORTEGA on 07/24/21 1145 Diphenhydramine HCl (Benadryl) 25 Mg Capsule, 50 MG PO HS, (Reported) Entered as Reported by: EMILIO SHEPPARD on 10/26/19811 Hydrocodone/Acetaminophen (Hydrocodone-Acetamin 5-325 mg) 5 Mg-325 Mg Tablet, 1 TAB PO Q6H PRN for PAIN-MODERATE (5-7), (Reported) Entered as Reported by: CASSANDRA CHOPRA on 02/15/22 121 Ondansetron (Ondansetron Odt) 8 Mg Tab.rapdis, 8 MG PO Q8H PRN for NAUSEA/VOMITING-1ST LINE, (Reported) Entered as Reported by: EMILIO SHEPPARD on 10/26/19811 Pantoprazole Sodium (Pantoprazole Sodium) 40 Mg Tablet.dr, 40 MG PO DAILY Prescribed by: CARMEN GIBBS on 03/01/22 1124 Promethazine HCl (Promethazine Tablet) 25 Mg Tablet, 25 MG PO Q6H PRN for NAUSEA/VOMITING-2ND LINE, (Reported) Entered as Reported by: LEX HOSKINS on 12/07/20 0916 Ropinirole HCl (Ropinirole HCl) 4 Mg Tablet, 4 MG PO HS, (Reported) Entered as Reported by: LEX HOSKINS on 06/28/17 1010 Sitagliptin Phos/Metformin HCl (Janumet Xr 50-1,000 mg Tablet) 50 Mg-1,000 Mg Tbmp.24hr, 2 TAB PO HS, (Reported) Entered as Reported by: LEX HOSKINS on 12/07/20 0916 Sucralfate (Sucralfate) 1 Gram Tablet, 1 GM PO ACHS Prescribed by: CARMEN GIBBS on 03/01/22 1124 Past Rheqmiy-Zpcrwo-Jojdff Hx Patient Social History Tobacco Use?: No Use of E-Cig and/or Vaping dev: No Substance use?: No Alcohol Use?: No Pt feels they are or have been: No Immunizations Up To Date Tetanus Booster (TDap): Less than 5yrs PED Vaccines UTD: No Influenza Vaccine Up-to-Date: No; Not Current First/Initial COVID19 Vaccinat: UNKNOWN DATE Second COVID19 Vaccination Alvaro: UNKNOWN DATE Third COVID19 Vaccination Date: UNKNOWN DATE Seasonal Allergies Seasonal Allergies: No Past Medical History Surgery/Hospitalization HX: several surgeries including 1 kidney removal, appendectomy, cammie., and power port placement, POWER PORT REMOVAL, HYSTERECTOMY Surgeries: Yes (hernia repair x2, knee scopes, port placement) Adenoidectomy, Appendectomy, Gallbladder, Hysterectomy, Nephrectomy, Orthopedic, Tonsillectomy Respiratory: Yes Asthma Currently Using CPAP: No Currently Using BIPAP: No Cardiac: Yes Hypertension Neurological: Yes Headaches /Migraines Reproductive Disorders: Yes (HX ENDOMETRIOSIS ) 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: 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 [employer]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 Sexually Transmitted Disease: No HIV/AIDS: No Genitourinary: Yes (S/P LEFT NEPHRECTOMY) UTI-Chronic Gastrointestinal: Yes (CHRONIC ABD PAIN/N/V./D) Abdominal Hernia, Gastroesophageal Reflux, Liver Disease/Jaundice, Obstructive Bowel, Pancreatitis, Chronic Diarrhea, Polyps Musculoskeletal: Yes (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) Chronic Back Pain Endocrine: Yes (OBESITY) Diabetes, Non-Insulin dep HEENT: No Loss of Vision: Denies Hearing Impairment: Denies Cancer: Yes Kidney Did You Recieve Any Treatments: Yes What Type of Treatment Did You: Surgical Intervention Psychosocial: Yes Anxiety, Depression Integumentary: No Herpes Blood Disorders: No Adverse Reaction/Blood Tranf: No (N/A) Family Medical History Cardiovascular disease 19 FATHER Completed stroke 19 FATHER Diabetes mellitus 19 FATHER Hypercholesterolemia 19 FATHER 19 MOTHER Hypertension 19 FATHER 19 MOTHER Neoplasm 19 MOTHER Psychosocial problem 19 FATHER 19 MOTHER No Pertinent Family Hx, Cancer, Diabetes, Hypertension PSH: -RIGHT KNEE SCOPE X 5 -LEFT KNEE SCOPE X 2 -TONSILLECTOMY / ADENOIDECTOMY -APPENDECTOMY -CHOLECYSTECTOMY -NASAL FRACTURE REPAIR -COCCYX REMOVAL -LEFT NEPHRECTOMY FOR MALIGNANCY -LEFT MID ABDOMEN INCISIONAL HERNIA REPAIR -DRAINAGE OF ABDOMINAL WALL ABSCESS -MULTIPLE EGD'S AND COLONOSCOPIES--LAST ONE DONE HERE 10/26/19 -HYSTERECTOMY / BILATERAL SALPINGO-OOPHORECTOMY 2007 -06/23/20--RIGHT CHEST WALL/SHOULDER INJECTION FOR THORACIC OUTLET SYNDROME--DONE IN -PORT REMOVED FROM LEFT CHEST 07/24/21 FOR NON-FUNCTIONING PORT-BY DR. MARROQUIN Physical Exam Vital Signs Vital Signs - First Documented 05/08/22 22:10 Temp 36.7 Pulse 88 Resp 18 B/P (MAP) 120/76 (91) Pulse Ox 98 O2 Delivery Room Air Capillary Refill : Less Than 3 Seconds Height, Weight, BMI Height: 5'3.00" Weight: 246lbs. 0oz. 111.750504ox; 43.00 BMI Method:Stated Progress/Results/Core Measures Suspected Sepsis SIRS Temperature: Pulse: 88 Respiratory Rate: 18 Laboratory Tests 05/08/22 22:45: White Blood Count 10.0 Blood Pressure 120 /76 Mean: 91 Laboratory Tests 05/08/22 22:45: Creatinine 0.83, Platelet Count 272, Total Bilirubin 0.4 Results/Orders Lab Results Laboratory Tests Test 05/08/22 22:25 05/08/22 22:45 Range/Units Urine Color YELLOW Urine Clarity SL CLOUDY Urine pH 5.5 5-9 Urine Specific [place] >=1.030 1.016-1.022 Urine Protein NEGATIVE NEGATIVE Urine Glucose (UA) NEGATIVE NEGATIVE Urine Ketones NEGATIVE NEGATIVE Urine Nitrite NEGATIVE NEGATIVE Urine Bilirubin NEGATIVE NEGATIVE Urine Urobilinogen 0.2 < = 1.0 MG/DL Urine Leukocyte Esterase 2+ H NEGATIVE Urine RBC (Auto) NEGATIVE NEGATIVE Urine RBC NONE /HPF Urine WBC 10-25 H /HPF Urine Squamous Epithelial Cells 0-2 /HPF Urine Renal Epithelial Cells NONE /HPF Urine Crystals NONE /LPF Urine Bacteria NEGATIVE /HPF Urine Casts NONE /LPF Urine Mucus NEGATIVE /LPF Urine Culture Indicated YES White Blood Count 10.0 4.3-11.0 10^3/uL Red Blood Count 4.42 3.80-5.11 10^6/uL Hemoglobin 11.8 11.5-16.0 g/dL Hematocrit 36 35-52 % Mean Corpuscular Volume 82 80-99 fL Mean Corpuscular Hemoglobin 27 25-34 pg Mean Corpuscular Hemoglobin Concent 33 32-36 g/dL Red Cell Distribution Width 13.3 10.0-14.5 % Platelet Count 272 130-400 10^3/uL Mean Platelet Volume 9.5 9.0-12.2 fL Immature Granulocyte % (Auto) 0 % Neutrophils (%) (Auto) 51 42-75 % Lymphocytes (%) (Auto) 41 12-44 % Monocytes (%) (Auto) 5 0-12 % Eosinophils (%) (Auto) 2 0-10 % Basophils (%) (Auto) 0 0-10 % Neutrophils # (Auto) 5.1 1.8-7.8 10^3/uL Lymphocytes # (Auto) 4.1 H 1.0-4.0 10^3/uL Monocytes # (Auto) 0.5 0.0-1.0 10^3/uL Eosinophils # (Auto) 0.2 0.0-0.3 10^3/uL Basophils # (Auto) 0.0 0.0-0.1 10^3/uL Immature Granulocyte # (Auto) 0.0 0.0-0.1 10^3/uL Sodium Level 140 135-145 MMOL/L Potassium Level 3.8 3.6-5.0 MMOL/L Chloride Level 107 98-107 MMOL/L Carbon Dioxide Level 21 21-32 MMOL/L Anion Gap 12 5-14 MMOL/L Blood Urea Nitrogen 12 7-18 MG/DL Creatinine 0.83 0.60-1.30 MG/DL Estimat Glomerular Filtration Rate 92 BUN/Creatinine Ratio 14 Glucose Level 85 70-105 MG/DL Calcium Level 9.5 8.5-10.1 MG/DL Corrected Calcium 9.3 8.5-10.1 MG/DL Total Bilirubin 0.4 0.1-1.0 MG/DL Aspartate Amino Transf (AST/SGOT) 36 H 5-34 U/L Alanine Aminotransferase (ALT/SGPT) 37 0-55 U/L Alkaline Phosphatase 88 40-136 U/L Total Protein 7.3 6.4-8.2 GM/DL Albumin 4.2 3.2-4.5 GM/DL Amylase Level 99 25-125 U/L Lipase 139 H 8-78 U/L My Orders Orders - YAN CHAPARRO DO Ed Iv/Invasive Line Start (05/08/22 22:21) Monitor-Rhythm Ecg Trace Only (05/08/22 22:21) Chest Pa/Lat (2 View) (05/08/22 22:21) Amylase (05/08/22 22:21) Cbc With Automated Diff (05/08/22 22:21) Comprehensive Metabolic Panel (05/08/22 22:21) Lipase (05/08/22 22:21) Ua Culture If Indicated (05/08/22 22:21) Ct Chest/Abdomen/Pelvis Wo (05/08/22 22:21) Urine Culture (05/08/22 22:25) Vital Signs/I&O 05/08/22 22:10 Temp 36.7 Pulse 88 Resp 18 B/P (MAP) 120/76 (91) Pulse Ox 98 O2 Delivery Room Air Capillary Refill : Less Than 3 Seconds Blood Pressure Mean: 91 Departure Impression Primary Impression: Urinary tract infection Additional Impression: Right-sided chest wall pain Disposition: 01 HOME, SELF-CARE Condition: Stable Departure-Patient Inst. Decision time for Depature: 23:55 Referrals: CARMEN GIBBS MD (PCP/Family) Primary Care Physician Patient Instructions: Costochondritis (DC), Urinary Tract Infection, Adult ED, Chest Pain That Is Not Caused by the Heart (DC) Add. Discharge Instructions: HOME, REST TAKE TYLENOL NEEDED FOR PAIN MOIST HEAT TO AREA AT 20 MINUTE INTERVALS KEEP YOUR APPOINTMENT WITH [facility] TOMORROW. All discharge instructions reviewed with patient and/or family. Voiced understanding. Scripts Cefdinir (Cefdinir) 300 Mg Capsule 300 MG PO BID, #20 CAP Prov: YAN CHAPARRO DO 05/08/22 YAN CHAPARRO DO May 08, 2022 22:56
[2022-05-08 23:03] LABS: BACTERIA,URINE NEGATIVE /HPF; SQUAMOUS EPITHELIAL CELL,UR 0-2 /HPF
[2022-05-08 23:12] LABS: ALBUMIN 4.2 GM/DL (3.2-4.5); POTASSIUM 3.8 MMOL/L (3.6-5.0)
[2022-05-08 23:13] LABS: CALCIUM 9.5 MG/DL (8.5-10.1)
[2022-05-08 23:15] LABS: TOTAL PROTEIN 7.3 GM/DL (6.4-8.2)
[2022-05-08 23:16] LABS: BILIRUBIN,TOTAL 0.4 MG/DL (0.1-1.0)
[2022-05-08 23:18] LABS: CREATININE SERUM 0.83 MG/DL (0.60-1.30)
[2022-05-08] MEDS ORDERED: CEFD300C3 PO (23:47)
[2022-05-09 00:24] VITALS: BP 120/76
--- NOTE | 2022-05-09 07:11 | Diagnostic Imaging Report ---
INDICATION: Chest pain. Comparison with CT chest of 05/08/2022. FINDINGS: PA and lateral chest. The lungs are well-aerated and clear. Heart is not enlarged. No pneumothorax or pleural effusion. No bony abnormalities. IMPRESSION: Normal PA and lateral chest. Dictated by: Dictated on workstation # [id number]
--- NOTE | 2022-05-09 07:18 | Diagnostic Imaging Report ---
PROCEDURE: CT chest, abdomen, and pelvis without contrast. TECHNIQUE: Multiple contiguous axial images were obtained through the chest, abdomen, and pelvis without the use of intravenous contrast. Auto Exposure Controls were utilized during the CT exam to meet ALARA standards for radiation dose reduction. INDICATION: Right flank pain. FINDINGS: CT chest: Lungs are well-aerated and clear. No evidence of aortic aneurysm. No mediastinal or hilar adenopathy. No bony abnormalities. CT abdomen and pelvis: The liver is normal. Gallbladder absent. Bile ducts not dilated. Pancreas and spleen are normal. There are several splenules noted in the left upper quadrant unchanged. The adrenal glands are not enlarged. Left kidney is absent. Right kidney shows no hydronephrosis. Stomach and small bowel are not distended. Colon shows normal stool and gas pattern. There is an anastomotic suture line in the mid transverse colon. Appendix is absent. Uterus is absent. Bladder is decompressed. No adenopathy. No free air or free fluid. No bony lesion. IMPRESSION: No acute changes have occurred when compared with previous exam. These findings are in agreement with the preliminary report. Dictated by: Dictated on workstation # [id number]
== END 2022-05-09 00:25 | disposition home or self-care (01) ==
LOC: EDUNIT# 21:17 → ER 21:19
DX: N39.0 Urinary tract infection, site not specified (principal); R07.89 Other chest pain; E66.9 Obesity, unspecified; Z68.41 Body mass index [BMI] 40.0-44.9, adult; Z90.49 Acquired absence of other specified parts of digestive tract; Z88.0 Allergy status to penicillin
CPT/HCPCS: 36415; 71046; 71250; 74176; 80053; 81000; 82150; 83690; 85025; 87088

== ENCOUNTER 2022-05-22 01:18 | Emergency (ER) | payer MEDICARE, MEDICAID ==
[~2022-05-22] VITALS: Ht 160 cm; Wt 111.1 kg
[2022-05-22 01:38] LABS: BILIRUBIN,URINE NEGATIVE (NEGATIVE); CLARITY,URINE CLEAR; COLOR,URINE YELLOW; GLUCOSE, URINE (UA) NEGATIVE (NEGATIVE); KETONES,URINE NEGATIVE (NEGATIVE); LEUKOCYTE ESTERASE ,URINE 1+ (NEGATIVE); NITRITE,URINE NEGATIVE (NEGATIVE); PH,URINE 5.5 (5-9); PROTEIN,URINE NEGATIVE (NEGATIVE)
[2022-05-22] MEDS ORDERED: NS IV 1000 ML 1,000 ML IV SCH (01:45)
[2022-05-22 01:50] LABS: AMPHETAMINE SCREEN, URINE NEGATIVE (NEGATIVE); BACTERIA,URINE FEW /HPF; BARBITURATE SCREEN URINE NEGATIVE (NEGATIVE); BENZODIAZEPINES SCREEN URINE NEGATIVE (NEGATIVE); CANNABINOID SCREEN, URINE NEGATIVE (NEGATIVE); COCAINE SCREEN URINE NEGATIVE (NEGATIVE); METHADONE STAT NEGATIVE (NEGATIVE); OPIATE SCREEN URINE NEGATIVE (NEGATIVE); OXYCODONE STAT NEGATIVE (NEGATIVE); PROPOXYPHENE STAT NEGATIVE (NEGATIVE); TRICYCLIC ANTIDEPRESSANTS SCRE NEGATIVE (NEGATIVE)
[2022-05-22 01:51] LABS: CALCIUM OXALATE CRYSTALS,UR FEW /LPF
--- NOTE | 2022-05-22 01:52 | ED General ---
General Chief Complaint: Glucose Problems Stated Complaint: HIGH BLOOD SUGAR 274 Source of Information: Patient History of Present Illness Date Seen by Provider: May 22, 2022 Time Seen by Provider: 01:33 Initial Comments PT ARRIVES VIA POV FROM HOME C/O ELEVATED BLOOD GLUCOSE OF 274 JUST PRIOR TO ARRIVAL, RUSHED STRAIGHT HERE. C/O HEADACHE TOOK A TYLENOL PM 2 HOURS AGO, ALONG WITH HER PM MEDICATIONS PT WITH MULTITUDE OF VISITS FOR VARIOUS COMPLAINTS--SEE OLD CHARTS FOR DETAILS. 20 VISITS IN 2021. LONG HISTORY OF NON-COMPLIANCE IN ALL ASPECTS OF CARE PT STATES SHE HAS NOT FOLLOWED UP WITH ANYONE SINCE HER LAST 2 ER VISITS. CLAIMS SHE HAS AN APPOINTMENT WITH DR. GIBBS SOMETIME NEXT WEEK. ( ON PREVIOUS VISITS, SHE HAD STATED THAT SHE HAD FOLLOW UP APPOINTMENTS WITH HER GI SPECIALIST IN [place] FOR FOLLOW UP OF PANCREATITIS ON 05/14/22 AND HAD ALSO STATED THAT SHE HAD AN APPOINTMENT WITH [facility] ON 05/09/22--PT STATES TODAY THAT SHE HAS NOT FOLLOWED UP WITH ANYONE. ) Allergies and Home Medications Allergies Coded Allergies: meperidine (Verified Allergy, Unknown, 01/24/22) penicillin G (Verified Allergy, Unknown, 01/24/22) prochlorperazine (Verified Allergy, Unknown, 01/24/22) trimethobenzamide (Unverified Allergy, Unknown, 01/24/22) vancomycin (Verified Adverse Reaction, Intermediate, severe itching, 01/24/22) fentanyl (Verified Adverse Reaction, Unknown, HALLUCINATIONS, 02/27/22) Patient Home Medication List Home Medication List Reviewed: Yes Acetaminophen (Tylenol Extra Strength) 500 Mg Tablet, 1,000 MG PO Q8H PRN for PAIN-MILD (1-4), (Reported) Entered as Reported by: EMILIO SHEPPARD on 10/26/19 0812 Albuterol Sulfate (Ventolin Hfa) 90 Mcg Hfa.aer.ad, 2 PUFF INH Q6H PRN for SHORTNESS OF BREATH, (Reported) Entered as Reported by: CASSANDRA CHOPRA on 02/15/22 1215 Albuterol Sulfate (Albuterol Sulfate) 2.5 Mg/3 Ml (0.083 %) Vial.neb, 3 ML PO Q8H PRN for SHORTNESS OF BREATH, (Reported) Entered as Reported by: CASSANDRA CHOPRA on 02/15/22 1215 Amitriptyline HCl (Amitriptyline HCl) 10 Mg Tablet, 10 MG PO HS Prescribed by: CARMEN GIBBS on 03/01/22 1124 Atorvastatin Calcium (Atorvastatin Calcium) 40 Mg Tablet, 40 MG PO HS, (Reported) Entered as Reported by: CASSANDRA CHOPRA on 02/15/22 121 Benzonatate (Benzonatate) 100 Mg Capsule, 100 MG PO TID PRN for COUGH, (Reported) Entered as Reported by: CASSANDRA CHOPRA on 02/15/22 121 Cefdinir (Cefdinir) 300 Mg Capsule, 300 MG PO BID Prescribed by: YAN CHAPARRO on 04/21/22 0052 Cefdinir (Cefdinir) 300 Mg Capsule, 300 MG PO BID Prescribed by: YAN CHAPARRO on 05/08/22 2347 Cephalexin (Cephalexin) 500 Mg Tablet, 500 MG PO QID Prescribed by: YAN CHAPARRO on 05/22/22 0228 Cetirizine HCl (Cetirizine HCl) 10 Mg Tablet, 10 MG PO HS, (Reported) Entered as Reported by: CASSANDRA CHOPRA on 02/15/22 121 Cyanocobalamin (Cyanocobalamin Injection) 1,000 Mcg/Ml Inj, 1,000 MCG IM MONTHLY, (Reported) Entered as Reported by: GRIFFIN ORTEGA on 07/24/21 1145 Diphenhydramine HCl (Benadryl) 25 Mg Capsule, 50 MG PO HS, (Reported) Entered as Reported by: EMILIO SHEPPARD on 10/26/19 0812 Hydrocodone/Acetaminophen (Hydrocodone-Acetamin 5-325 mg) 5 Mg-325 Mg Tablet, 1 TAB PO Q6H PRN for PAIN-MODERATE (5-7), (Reported) Entered as Reported by: CASSANDRA CHOPRA on 02/15/22 121 Ondansetron (Ondansetron Odt) 8 Mg Tab.rapdis, 8 MG PO Q8H PRN for NAUSEA/VOMITING-1ST LINE, (Reported) Entered as Reported by: EMILIO SHEPPARD on 10/26/19 08 Pantoprazole Sodium (Pantoprazole Sodium) 40 Mg Tablet.dr, 40 MG PO DAILY Prescribed by: CARMEN GIBBS on 03/01/22 1124 Promethazine HCl (Promethazine Tablet) 25 Mg Tablet, 25 MG PO Q6H PRN for NAUSEA/VOMITING-2ND LINE, (Reported) Entered as Reported by: LEX HOSKINS on 12/07/20 0916 Ropinirole HCl (Ropinirole HCl) 4 Mg Tablet, 4 MG PO HS, (Reported) Entered as Reported by: LEX HOSKINS on 06/28/17 1010 Sitagliptin Phos/Metformin HCl (Janumet Xr 50-1,000 mg Tablet) 50 Mg-1,000 Mg Tbmp.24hr, 2 TAB PO HS, (Reported) Entered as Reported by: LEX HOSKINS on 12/07/20 0916 Sucralfate (Sucralfate) 1 Gram Tablet, 1 GM PO ACHS Prescribed by: CARMEN GIBBS on 03/01/22 1124 Review of Systems Review of Systems Constitutional: no symptoms reported Respiratory: no symptoms reported Cardiovascular: no symptoms reported Gastrointestinal: no symptoms reported Genitourinary: no symptoms reported Musculoskeletal: no symptoms reported Skin: no symptoms reported Psychiatric/Neurological: Headache Hematologic/Lymphatic: No Symptoms Reported Immunological/Allergic: no symptoms reported Past [id number]-[id number] Hx Patient Social History Tobacco Use?: No Use of E-Cig and/or Vaping dev: No Substance use?: No Alcohol Use?: No Immunizations Up To Date Tetanus Booster (TDap): Less than 5yrs PED Vaccines UTD: No First/Initial COVID19 Vaccinat: UNKNOWN DATE Second COVID19 Vaccination Alvaro: UNKNOWN DATE Third COVID19 Vaccination Date: UNKNOWN DATE Seasonal Allergies Seasonal Allergies: No Past Medical History Surgery/Hospitalization HX: several surgeries including 1 kidney removal, appendectomy, cammie., and power port placement, POWER PORT REMOVAL, HYSTERECTOMY Surgeries: Yes (hernia repair x2, knee scopes, port placement) Adenoidectomy, Appendectomy, Gallbladder, Hysterectomy, Nephrectomy, Orthopedic, Tonsillectomy Respiratory: Yes Asthma Currently Using CPAP: No Currently Using BIPAP: No Cardiac: Yes Hypertension Neurological: Yes Headaches /Migraines Reproductive Disorders: Yes (HX ENDOMETRIOSIS ) 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: 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 Sexually Transmitted Disease: No HIV/AIDS: No Genitourinary: Yes (S/P LEFT NEPHRECTOMY) UTI-Chronic Gastrointestinal: Yes (CHRONIC ABD PAIN/N/V./D) Abdominal Hernia, Gastroesophageal Reflux, Liver Disease/Jaundice, Obstructive Bowel, Pancreatitis, Chronic Diarrhea, Polyps Musculoskeletal: Yes (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) Chronic Back Pain Endocrine: Yes (OBESITY) Diabetes, Non-Insulin dep HEENT: No Loss of Vision: Denies Hearing Impairment: Denies Cancer: Yes Kidney Did You Recieve Any Treatments: Yes What Type of Treatment Did You: Surgical Intervention Psychosocial: Yes Anxiety, Depression Integumentary: No Herpes Blood Disorders: No Adverse Reaction/Blood Tranf: No (N/A) Family Medical History Cardiovascular disease 19 FATHER Completed stroke 19 FATHER Diabetes mellitus 19 FATHER Hypercholesterolemia 19 FATHER 19 MOTHER Hypertension 19 FATHER 19 MOTHER Neoplasm 19 MOTHER Psychosocial problem 19 FATHER 19 MOTHER No Pertinent Family Hx, Cancer, Diabetes, Hypertension PSH: -RIGHT KNEE SCOPE X 5 -LEFT KNEE SCOPE X 2 -TONSILLECTOMY / ADENOIDECTOMY -APPENDECTOMY -CHOLECYSTECTOMY -NASAL FRACTURE REPAIR -COCCYX REMOVAL -LEFT NEPHRECTOMY FOR MALIGNANCY -LEFT MID ABDOMEN INCISIONAL HERNIA REPAIR -DRAINAGE OF ABDOMINAL WALL ABSCESS -MULTIPLE EGD'S AND COLONOSCOPIES--LAST ONE DONE HERE 10/26/19 -HYSTERECTOMY / BILATERAL SALPINGO-OOPHORECTOMY 2007 -06/23/20--RIGHT CHEST WALL/SHOULDER INJECTION FOR THORACIC OUTLET SYNDROME--DONE IN -PORT REMOVED FROM LEFT CHEST 07/24/21 FOR NON-FUNCTIONING PORT-BY DR. MARROQUIN Physical Exam Vital Signs Vital Signs - First Documented 05/22/22 01:31 Temp 36.7 Pulse 98 Resp 18 B/P (MAP) 148/50 (82) Pulse Ox 97 O2 Delivery Room Air Capillary Refill : Height, Weight, BMI Height: 5'3.00" Weight: 246lbs. 0oz. [id number]; 43.00 BMI Method:Stated General Appearance: No Apparent Distress, WD/WN, Obese, Other (WALKS AND MOVES WITHOUT DIFFICULTY. ) Respiratory: Normal Breath Sounds Cardiovascular: Regular Rate, Rhythm Gastrointestinal: Non Tender Extremity: Normal Inspection Neurologic/Psychiatric: Alert, Oriented x3, No Motor/Sensory Deficits, Normal Mood/Affect, picture framer II-XII Norm as Tested Skin: Normal Color, Warm/Dry Progress/Results/Core Measures Suspected Sepsis SIRS Temperature: Pulse: Respiratory Rate: Laboratory Tests 05/22/22 01:35: White Blood Count 9.5 Blood Pressure / Mean: Laboratory Tests 05/22/22 01:35: Creatinine 0.82, Platelet Count 261, Total Bilirubin 0.3 Results/Orders Lab Results Laboratory Tests Test 05/22/22 01:25 05/22/22 01:30 05/22/22 01:35 Range/Units Urine Color YELLOW Urine Clarity CLEAR Urine pH 5.5 5-9 Urine Specific [place] >=1.030 1.016-1.022 Urine Protein NEGATIVE NEGATIVE Urine Glucose (UA) NEGATIVE NEGATIVE Urine Ketones NEGATIVE NEGATIVE Urine Nitrite NEGATIVE NEGATIVE Urine Bilirubin NEGATIVE NEGATIVE Urine Urobilinogen 0.2 < = 1.0 MG/DL Urine Leukocyte Esterase 1+ H NEGATIVE Urine RBC (Auto) NEGATIVE NEGATIVE Urine RBC NONE /HPF Urine WBC 5-10 H /HPF Urine Squamous Epithelial Cells 10-25 H /HPF Urine Crystals PRESENT H /LPF Urine Calcium Oxalate Crystals FEW H /LPF Urine Bacteria FEW H /HPF Urine Casts NONE /LPF Urine Mucus SMALL H /LPF Urine Culture Indicated YES Urine Opiates Screen NEGATIVE NEGATIVE Urine Oxycodone Screen NEGATIVE NEGATIVE Urine Methadone Screen NEGATIVE NEGATIVE Urine Propoxyphene Screen NEGATIVE NEGATIVE Urine Barbiturates Screen NEGATIVE NEGATIVE Ur Tricyclic Antidepressants Screen NEGATIVE NEGATIVE Urine Phencyclidine Screen NEGATIVE NEGATIVE Urine Amphetamines Screen NEGATIVE NEGATIVE Urine Methamphetamines Screen NEGATIVE NEGATIVE Urine Benzodiazepines Screen NEGATIVE NEGATIVE Urine Cocaine Screen NEGATIVE NEGATIVE Urine Cannabinoids Screen NEGATIVE NEGATIVE Glucometer 146 H 70-110 MG/DL White Blood Count 9.5 4.3-11.0 10^3/uL Red Blood Count 4.28 3.80-5.11 10^6/uL Hemoglobin 11.3 L 11.5-16.0 g/dL Hematocrit 36 35-52 % Mean Corpuscular Volume 83 80-99 fL Mean Corpuscular Hemoglobin 26 25-34 pg Mean Corpuscular Hemoglobin Concent 32 32-36 g/dL Red Cell Distribution Width 13.4 10.0-14.5 % Platelet Count 261 130-400 10^3/uL Mean Platelet Volume 9.8 9.0-12.2 fL Immature Granulocyte % (Auto) 0 % Neutrophils (%) (Auto) 54 42-75 % Lymphocytes (%) (Auto) 39 12-44 % Monocytes (%) (Auto) 4 0-12 % Eosinophils (%) (Auto) 2 0-10 % Basophils (%) (Auto) 1 0-10 % Neutrophils # (Auto) 5.1 1.8-7.8 10^3/uL Lymphocytes # (Auto) 3.7 1.0-4.0 10^3/uL Monocytes # (Auto) 0.4 0.0-1.0 10^3/uL Eosinophils # (Auto) 0.2 0.0-0.3 10^3/uL Basophils # (Auto) 0.1 0.0-0.1 10^3/uL Immature Granulocyte # (Auto) 0.0 0.0-0.1 10^3/uL Sodium Level 140 135-145 MMOL/L Potassium Level 3.7 3.6-5.0 MMOL/L Chloride Level 106 98-107 MMOL/L Carbon Dioxide Level 22 21-32 MMOL/L Anion Gap 12 5-14 MMOL/L Blood Urea Nitrogen 14 7-18 MG/DL Creatinine 0.82 0.60-1.30 MG/DL Estimat Glomerular Filtration Rate 94 BUN/Creatinine Ratio 17 Glucose Level 163 H 70-105 MG/DL Calcium Level 9.2 8.5-10.1 MG/DL Corrected Calcium 9.2 8.5-10.1 MG/DL Total Bilirubin 0.3 0.1-1.0 MG/DL Aspartate Amino Transf (AST/SGOT) 26 5-34 U/L Alanine Aminotransferase (ALT/SGPT) 31 0-55 U/L Alkaline Phosphatase 76 40-136 U/L Total Protein 7.1 6.4-8.2 GM/DL Albumin 4.0 3.2-4.5 GM/DL Serum Alcohol < 10 <10 MG/DL My Orders Orders - YAN CHAPARRO DO Ed Iv/Invasive Line Start (05/22/22:32) Alcohol (05/22/22:32) Cbc With Automated Diff (05/22/22:32) Comprehensive Metabolic Panel (05/22/22:32) Drug Screen Stat (Urine) (05/22/22:32) Ua Culture If Indicated (05/22/22:32) Accucheck Stat ONCE (05/22/22:32) Ed Iv/Invasive Line Start (05/22/22:32) Ns Iv 1000 Ml (Sodium Chloride 0.9%) (05/22/22 01:45) Urine Culture (05/22/22 01:25) Vital Signs/I&O 05/22/22 01:31 Temp 36.7 Pulse 98 Resp 18 B/P (MAP) 148/50 (82) Pulse Ox 97 O2 Delivery Room Air Capillary Refill : Point of Care Testing Finger Stick Blood Glucose: 146 Blood Glucose Action Taken: NURSE AND DOC NOTIFIED Progress Note : Progress Note FINGERSTICK ACCUCHECK 146 ON ARRIVAL GLUCOSE IS 163 ON CHEMISTRY PANEL. GIVEN IV FLUIDS MUCH DELAY IN OBTAINING LAB RESULTS. UNEVENTFUL ER STAY, PT SLEPT THROUGH REMAINDER OF ER STAY STRESSED THE IMPORTANCE OF FOLLOW UP WITH HER PCP FOR FURTHER CARE Departure Impression Primary Impression: NIDDM Additional Impressions: Urinary tract infection Headache Disposition: HOME, SELF-CARE Condition: Stable Departure-Patient Inst. Decision time for Depature: 02:45 Referrals: CARMEN GIBBS MD (PCP/Family) Primary Care Physician Patient Instructions: Type 2 Diabetes (DC), Headache, Adult ED, Urinary Tract Infection, Adult ED Add. Discharge Instructions: CONTINUE YOUR REGULAR MEDICATIONS PRESCRIBED LOTS OF CLEAR LIQUIDS TYLENOL NEEDED FOR PAIN FOLLOW UP WITH YOUR DR IN 1-2 DAYS IF SYMPTOMS PERSIST, OTHERWISE FOLLOW UP IN 7-10 DAYS TO RECHECK URINE All discharge instructions reviewed with patient and/or family. Voiced understanding. Scripts Cephalexin (Cephalexin) 500 Mg Tablet 500 MG PO QID, #40 TAB Prov: YAN CHAPARRO DO 05/22/22 YAN CHAPARRO DO May 22, 2022 01:52
[2022-05-22 02:17] LABS: BASOPHILS # (AUTO) 0.1 10^3/uL (0.0-0.1); BASOPHILS % (AUTO) 1 % (0-10); EOSINOPHILS # (AUTO) 0.2 10^3/uL (0.0-0.3); EOSINOPHILS % (AUTO) 2 % (0-10); HEMATOCRIT 36 % (35-52); HEMOGLOBIN 11.3 g/dL (11.5-16.0); LYMPHOCYTES # (AUTO) 3.7 10^3/uL (1.0-4.0); LYMPHOCYTES % (AUTO) 39 % (12-44); MEAN CORPUSCULAR HEMOGLOBIN 26 pg (25-34); MEAN CORPUSCULAR HGB CONC 32 g/dL (32-36); MEAN CORPUSCULAR VOLUME 83 fL (80-99); MEAN PLATELET VOLUME 9.8 fL (9.0-12.2); MONOCYTES # (AUTO) 0.4 10^3/uL (0.0-1.0); MONOCYTES % (AUTO) 4 % (0-12); NEUTROPHILS # (AUTO) 5.1 10^3/uL (1.8-7.8); NEUTROPHILS % (AUTO) 54 % (42-75); PLATELET COUNT 261 10^3/uL (130-400); WHITE BLOOD COUNT 9.5 10^3/uL (4.3-11.0)
[2022-05-22 02:22] LABS: CHLORIDE 106 MMOL/L (98-107); POTASSIUM 3.7 MMOL/L (3.6-5.0); SODIUM 140 MMOL/L (135-145)
[2022-05-22 02:23] LABS: CALCIUM 9.2 MG/DL (8.5-10.1)
[2022-05-22 02:24] LABS: GLUCOSE 163 MG/DL (70-105); TOTAL PROTEIN 7.1 GM/DL (6.4-8.2)
[2022-05-22 02:25] LABS: CARBON DIOXIDE 22 MMOL/L (21-32)
[2022-05-22 02:26] LABS: BILIRUBIN,TOTAL 0.3 MG/DL (0.1-1.0)
[2022-05-22 02:28] LABS: ALKALINE PHOSPHATASE 76 U/L (40-136); CREATININE SERUM 0.82 MG/DL (0.60-1.30); GFR ESTIMATED 94
[2022-05-22] MEDS ORDERED: CEPH500T PO (02:28)
[2022-05-22 02:29] LABS: BUN/CREATININE RATIO 17
[2022-05-22 02:31] LABS: ALANINE AMINOTRANSFERASE 31 U/L (0-55)
[2022-05-22 02:58] VITALS: BP 120/72
== END 2022-05-22 02:59 | disposition home or self-care (01) ==
LOC: EDUNIT# 01:18 → ER 01:20
DX: E11.65 Type 2 diabetes mellitus with hyperglycemia (principal); N39.0 Urinary tract infection, site not specified; R51.9 Headache, unspecified; E66.9 Obesity, unspecified; Z68.41 Body mass index [BMI] 40.0-44.9, adult; Z88.1 Allergy status to other antibiotic agents
CPT/HCPCS: 36415; 80053; 80306; 80320; 81000; 82947; 85025; 87088

== ENCOUNTER 2022-06-20 11:01 | Emergency (ER) | payer MEDICARE, MEDICAID ==
[~2022-06-20] VITALS: Ht 160 cm; Wt 111.0 kg
[~2022-06-20 11:01] MED LIST changes: +CEPH500T PO
[2022-06-20] MEDS ORDERED: PROMETHAZINE INJ 25 MG/ML (PHENERGAN) AMP IVP ONE (11:45)
[2022-06-20] MEDS ORDERED: NS IV 1000 ML 1,000 ML IV ONE (11:45)
--- NOTE | 2022-06-20 11:46 | ED GI ---
General Chief Complaint: Head/Cervical Problems Stated Complaint: HEADACHE | VOMITING | STOMACH PAIN Nursing Triage Note: ARRIVED VIA AMB WITH COMPLAINTS OF A HEADACHE, ABDPAIN, AND NAUSEA. PT STATES SHE TOOK ZOFRAN AT 0700, PHENERGAN AT 0900 AND TYLENOL AT 0900. Source of Information: Patient Exam Limitations: No Limitations History of Present Illness Date Seen by Provider: Jun 20, 2022 Time Seen by Provider: 11:25 Initial Comments This is a 37-year-old female who presented to the ER with complaints of upper abdominal pain, nausea, vomiting too numerous to count, headache. She took Zofran at 0700 this morning and Phenergan at 0900 with Tylenol and has had minimal relief of symptoms. Allergies and Home Medications Allergies Coded Allergies: meperidine (Verified Allergy, Unknown, 01/24/22) penicillin G (Verified Allergy, Unknown, 01/24/22) prochlorperazine (Verified Allergy, Unknown, 01/24/22) trimethobenzamide (Unverified Allergy, Unknown, 01/24/22) vancomycin (Verified Adverse Reaction, Intermediate, severe itching, 01/24/22) fentanyl (Verified Adverse Reaction, Unknown, HALLUCINATIONS, 02/27/22) Patient Home Medication List Acetaminophen (Tylenol Extra Strength) 500 Mg Tablet, 1,000 MG PO Q8H PRN for PAIN-MILD (1-4), (Reported) Entered as Reported by: EMILIO SHEPPARD on 10/26/19 0812 Albuterol Sulfate (Ventolin Hfa) 90 Mcg Hfa.aer.ad, 2 PUFF INH Q6H PRN for SHORTNESS OF BREATH, (Reported) Entered as Reported by: CASSANDRA CHOPRA on 02/15/22 1215 Albuterol Sulfate (Albuterol Sulfate) 2.5 Mg/3 Ml (0.083 %) Vial.neb, 3 ML PO Q8H PRN for SHORTNESS OF BREATH, (Reported) Entered as Reported by: CASSANDRA CHOPRA on 02/15/22 1215 Amitriptyline HCl (Amitriptyline HCl) 10 Mg Tablet, 10 MG PO HS Prescribed by: CARMEN GIBBS on 03/01/22 1124 Atorvastatin Calcium (Atorvastatin Calcium) 40 Mg Tablet, 40 MG PO HS, (Reported) Entered as Reported by: CASSANDRA CHOPRA on 02/15/22 1215 Benzonatate (Benzonatate) 100 Mg Capsule, 100 MG PO TID PRN for COUGH, (Reported) Entered as Reported by: CASSANDRA CHOPRA on 02/15/22 1215 Cefdinir (Cefdinir) 300 Mg Capsule, 300 MG PO BID Prescribed by: YAN CHAPARRO on 04/21/22 0052 Cefdinir (Cefdinir) 300 Mg Capsule, 300 MG PO BID Prescribed by: YAN CHAPARRO on 05/08/22 2347 Cephalexin (Cephalexin) 500 Mg Tablet, 500 MG PO QID Prescribed by: YAN CHAPARRO on 05/22/22 0228 Cetirizine HCl (Cetirizine HCl) 10 Mg Tablet, 10 MG PO HS, (Reported) Entered as Reported by: CASSANDRA CHOPRA on 02/15/22 1215 Cyanocobalamin (Cyanocobalamin Injection) 1,000 Mcg/Ml Inj, 1,000 MCG IM MONTHLY, (Reported) Entered as Reported by: GRIFFIN ORTEGA on 07/24/21 1145 Diphenhydramine HCl (Benadryl) 25 Mg Capsule, 50 MG PO HS, (Reported) Entered as Reported by: EMILIO SHEPPARD on 10/26/19 0812 Hydrocodone/Acetaminophen (Hydrocodone-Acetamin 5-325 mg) 5 Mg-325 Mg Tablet, 1 TAB PO Q6H PRN for PAIN-MODERATE (5-7), (Reported) Entered as Reported by: CASSANDRA CHOPRA on 02/15/22 1215 Ondansetron (Ondansetron Odt) 8 Mg Tab.rapdis, 8 MG PO Q8H PRN for NAUSEA/VOMITING-1ST LINE, (Reported) Entered as Reported by: EMILIO SHEPPARD on 10/26/19 0812 Pantoprazole Sodium (Pantoprazole Sodium) 40 Mg Tablet.dr, 40 MG PO DAILY Prescribed by: CARMEN GIBBS on 03/01/22 1124 Promethazine HCl (Promethazine Tablet) 25 Mg Tablet, 25 MG PO Q6H PRN for NAUSEA/VOMITING-2ND LINE, (Reported) Entered as Reported by: LEX HOSKINS on 12/07/20 0916 Ropinirole HCl (Ropinirole HCl) 4 Mg Tablet, 4 MG PO HS, (Reported) Entered as Reported by: LEX HOSKINS on 06/28/17 1010 Sitagliptin Phos/Metformin HCl (Janumet Xr 50-1,000 mg Tablet) 50 Mg-1,000 Mg Tbmp.24hr, 2 TAB PO HS, (Reported) Entered as Reported by: LEX HOSKINS on 12/07/20 0916 Sucralfate (Sucralfate) 1 Gram Tablet, 1 GM PO ACHS Prescribed by: CARMEN GIBBS on 03/01/22 1124 Past Setwbok-Vczbko-Hlndrq Hx Patient Social History Tobacco Use?: No Substance use?: No Alcohol Use?: No Immunizations Up To Date Tetanus Booster (TDap): Less than 5yrs PED Vaccines UTD: No First/Initial COVID19 Vaccinat: UNKNOWN DATE Second COVID19 Vaccination Alvaro: UNKNOWN DATE Third COVID19 Vaccination Date: UNKNOWN DATE Seasonal Allergies Seasonal Allergies: No Past Medical History Surgery/Hospitalization HX: several surgeries including 1 kidney removal, appendectomy, cammie., and power port placement, POWER PORT REMOVAL, HYSTERECTOMY Surgeries: Yes (hernia repair x2, knee scopes, port placement) Adenoidectomy, Appendectomy, Gallbladder, Hysterectomy, Nephrectomy, Orthopedic, Tonsillectomy Respiratory: Yes Asthma Currently Using CPAP: No Currently Using BIPAP: No Cardiac: Yes Hypertension Neurological: Yes Headaches /Migraines Reproductive Disorders: Yes (HX ENDOMETRIOSIS ) 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: 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 Sexually Transmitted Disease: No HIV/AIDS: No Genitourinary: Yes (S/P LEFT NEPHRECTOMY) UTI-Chronic Gastrointestinal: Yes (CHRONIC ABD PAIN/N/V./D) Abdominal Hernia, Gastroesophageal Reflux, Liver Disease/Jaundice, Obstructive Bowel, Pancreatitis, Chronic Diarrhea, Polyps Musculoskeletal: Yes (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) Chronic Back Pain Endocrine: Yes (OBESITY) Diabetes, Non-Insulin dep HEENT: No Loss of Vision: Denies Hearing Impairment: Denies Cancer: Yes Kidney Did You Recieve Any Treatments: Yes What Type of Treatment Did You: Surgical Intervention Psychosocial: Yes Anxiety, Depression Integumentary: No Herpes Blood Disorders: No Adverse Reaction/Blood Tranf: No (N/A) Family Medical History Cardiovascular disease 19 FATHER Completed stroke 19 FATHER Diabetes mellitus 19 FATHER Hypercholesterolemia 19 FATHER 19 MOTHER Hypertension 19 FATHER 19 MOTHER Neoplasm 19 MOTHER Psychosocial problem 19 FATHER 19 MOTHER No Pertinent Family Hx, Cancer, Diabetes, Hypertension PSH: -RIGHT KNEE SCOPE X 5 -LEFT KNEE SCOPE X 2 -TONSILLECTOMY / ADENOIDECTOMY -APPENDECTOMY -CHOLECYSTECTOMY -NASAL FRACTURE REPAIR -COCCYX REMOVAL -LEFT NEPHRECTOMY FOR MALIGNANCY -LEFT MID ABDOMEN INCISIONAL HERNIA REPAIR -DRAINAGE OF ABDOMINAL WALL ABSCESS -MULTIPLE EGD'S AND COLONOSCOPIES--LAST ONE DONE HERE 10/26/19 -HYSTERECTOMY / BILATERAL SALPINGO-OOPHORECTOMY 2007 -06/23/20--RIGHT CHEST WALL/SHOULDER INJECTION FOR THORACIC OUTLET SYNDROME--DONE IN -PORT REMOVED FROM LEFT CHEST 07/24/21 FOR NON-FUNCTIONING PORT-BY DR. MARROQUIN Physical Exam Vital Signs Vital Signs - First Documented 06/20/22 11:18 Temp 36.4 Pulse 94 Resp 16 B/P (MAP) 163/96 (118) Pulse Ox 97 O2 Delivery Room Air Capillary Refill : Less Than 3 Seconds Height/Weight/BMI Height: 5'3.00" Weight: 246lbs. 0oz. 111.305506fd; 43.00 BMI Method:Stated Progress/Results/Core Measures Results/Orders Lab Results Laboratory Tests Test 06/20/22 11:18 06/20/22 11:40 06/20/22 11:55 Range/Units Urine Color YELLOW Urine Clarity CLEAR Urine pH 5.5 5-9 Urine Specific [place] 1.020 1.016-1.022 Urine Protein NEGATIVE NEGATIVE Urine Glucose (UA) NEGATIVE NEGATIVE Urine Ketones NEGATIVE NEGATIVE Urine Nitrite NEGATIVE NEGATIVE Urine Bilirubin NEGATIVE NEGATIVE Urine Urobilinogen 0.2 < = 1.0 MG/DL Urine Leukocyte Esterase NEGATIVE NEGATIVE Urine RBC (Auto) TRACE-I H NEGATIVE Urine RBC RARE /HPF Urine WBC RARE /HPF Urine Squamous Epithelial Cells 2-5 /HPF Urine Crystals NONE /LPF Urine Bacteria NEGATIVE /HPF Urine Casts NONE /LPF Urine Mucus NEGATIVE /LPF Urine Culture Indicated NO White Blood Count 9.2 4.3-11.0 10^3/uL Red Blood Count 4.50 3.80-5.11 10^6/uL Hemoglobin 11.9 11.5-16.0 g/dL Hematocrit 37 35-52 % Mean Corpuscular Volume 81 80-99 fL Mean Corpuscular Hemoglobin 26 25-34 pg Mean Corpuscular Hemoglobin Concent 33 32-36 g/dL Red Cell Distribution Width 13.2 10.0-14.5 % Platelet Count 275 130-400 10^3/uL Mean Platelet Volume 9.3 9.0-12.2 fL Immature Granulocyte % (Auto) 0 % Neutrophils (%) (Auto) 64 42-75 % Lymphocytes (%) (Auto) 29 12-44 % Monocytes (%) (Auto) 4 0-12 % Eosinophils (%) (Auto) 3 0-10 % Basophils (%) (Auto) 0 0-10 % Neutrophils # (Auto) 5.8 1.8-7.8 10^3/uL Lymphocytes # (Auto) 2.7 1.0-4.0 10^3/uL Monocytes # (Auto) 0.4 0.0-1.0 10^3/uL Eosinophils # (Auto) 0.2 0.0-0.3 10^3/uL Basophils # (Auto) 0.0 0.0-0.1 10^3/uL Immature Granulocyte # (Auto) 0.0 0.0-0.1 10^3/uL Sodium Level 139 135-145 MMOL/L Potassium Level 4.5 3.6-5.0 MMOL/L Chloride Level 107 98-107 MMOL/L Carbon Dioxide Level 22 21-32 MMOL/L Anion Gap 10 5-14 MMOL/L Blood Urea Nitrogen 12 7-18 MG/DL Creatinine 0.81 0.60-1.30 MG/DL Estimat Glomerular Filtration Rate 95 BUN/Creatinine Ratio 15 Glucose Level 107 H 70-105 MG/DL Calcium Level 9.4 8.5-10.1 MG/DL Corrected Calcium 9.4 8.5-10.1 MG/DL Total Bilirubin 0.6 0.1-1.0 MG/DL Aspartate Amino Transf (AST/SGOT) 31 5-34 U/L Alanine Aminotransferase (ALT/SGPT) 48 0-55 U/L Alkaline Phosphatase 86 40-136 U/L C-Reactive Protein High Sensitivity 0.46 0.00-0.50 MG/DL Total Protein 7.1 6.4-8.2 GM/DL Albumin 4.0 3.2-4.5 GM/DL Lipase 99 H 8-78 U/L Influenza Type A (RT-PCR) Not Detected Not Detecte Influenza Type B (RT-PCR) Not Detected Not Detecte SARS-CoV-2 RNA (RT-PCR) Not Detected Not Detecte My Orders Orders - OSVALDO CALDWELL MACHINE ASSEMBLER Cbc With Automated Diff (06/20/22 11:36) Comprehensive Metabolic Panel (06/20/22 11:36) Lipase (06/20/22 11:36) Ed Iv/Invasive Line Start (06/20/22 11:36) Covid 19 Inhouse Test (06/20/22 11:36) Influenza A And B By Pcr (06/20/22 11:36) Hs C Reactive Protein (06/20/22 11:36) Ns Iv 1000 Ml (Sodium Chloride 0.9%) (06/20/22 11:45) Promethazine Injection (Phenergan Injec (06/20/22 11:45) Ua Culture If Indicated (06/20/22 11:40) Ct Abdomen/Pelvis W (06/20/22 12:41) Diphenhydramine Injection (Benadryl Inje (06/20/22 12:45) Lactated Ringers (Lr 1000 Ml Iv Solution (06/20/22 12:45) Iohexol Injection (Omnipaque 350 Mg/Ml 1 (06/20/22 13:00) Received Contrast (Hold Metformin- Contr (06/20/22 13:00) Ns (Ivpb) (Sodium Chloride 0.9% Ivpb Bag (06/20/22 13:00) Fentanyl Inj (Sublimaze Injection) (06/20/22 13:30) Medications Given in ED Current Medications Medications Dose Ordered Sig/Neal Route Start Time Stop Time Status Last Admin Dose Admin Diphenhydramine HCl 25 mg ONCE ONCE IVP 06/20/22 12:45 06/20/22 12:46 DC 06/20/22 13:29 25 MG Fentanyl Citrate 50 mcg ONCE ONCE IVP 06/20/22 13:30 06/20/22 13:31 DC 06/20/22 13:31 50 MCG Iohexol 100 ml ONCE ONCE IV 06/20/22 13:00 06/20/22 13:01 DC 06/20/22 13:12 80 ML Lactated Ringer's 1,000 ml @ 0 mls/hr Q0M ONCE IV 06/20/22 12:45 06/20/22 12:46 DC 06/20/22 13:29 1,000 MLS/HR Promethazine HCl 25 mg ONCE ONCE IVP 06/20/22 11:45 06/20/22 11:46 DC 06/20/22 11:48 25 MG Sodium Chloride 100 ml ONCE ONCE IV 06/20/22 13:00 06/20/22 13:01 DC 06/20/22 13:12 80 ML Sodium Chloride 1,000 ml @ 999 mls/hr ONCE ONCE IV 06/20/22 11:45 06/20/22 12:45 DC 06/20/22 11:48 999 MLS/HR Vital Signs/I&O 06/20/22 11:18 Temp 36.4 Pulse 94 Resp 16 B/P (MAP) 163/96 (118) Pulse Ox 97 O2 Delivery Room Air Blood Pressure Mean: 118 Progress Progress Note : Time: 13:[address] reviewed at this time by myself, no acute pancreatitis seen. No acute findings. Pending radiology review. Departure Impression Primary Impression: Epigastric abdominal pain Additional Impression: Nausea & vomiting Disposition: 01 HOME, SELF-CARE Condition: Improved Departure-Patient Inst. Decision time for Depature: 13:50 Referrals: CARMEN GIBBS MD (PCP/Family) Primary Care Physician Patient Instructions: Nausea and Vomiting, Adult ED Add. Discharge Instructions: Plan: 1. Follow up with your primary care provider later this week. 2. Continue your home Zofran and Phenergan as directed. 3. May take Tylenol and Ibuprofen as needed per package for comfort. 4. Return to ER for any new, concerning, or worsening symptoms. All discharge instructions reviewed with patient and/or family. Voiced understanding. OSVALDO CALDWELL MACHINE ASSEMBLER Jun 20, 2022 11:46
[2022-06-20 11:47] LABS: BILIRUBIN,URINE NEGATIVE (NEGATIVE); CLARITY,URINE CLEAR; COLOR,URINE YELLOW; GLUCOSE, URINE (UA) NEGATIVE (NEGATIVE); KETONES,URINE NEGATIVE (NEGATIVE); LEUKOCYTE ESTERASE ,URINE NEGATIVE (NEGATIVE); NITRITE,URINE NEGATIVE (NEGATIVE); PH,URINE 5.5 (5-9); PROTEIN,URINE NEGATIVE (NEGATIVE)
[2022-06-20 11:50] LABS: BASOPHILS % (AUTO) 0 % (0-10); EOSINOPHILS # (AUTO) 0.2 10^3/uL (0.0-0.3); EOSINOPHILS % (AUTO) 3 % (0-10); HEMATOCRIT 37 % (35-52); HEMOGLOBIN 11.9 g/dL (11.5-16.0); LYMPHOCYTES # (AUTO) 2.7 10^3/uL (1.0-4.0); LYMPHOCYTES % (AUTO) 29 % (12-44); MEAN CORPUSCULAR HEMOGLOBIN 26 pg (25-34); MEAN CORPUSCULAR HGB CONC 33 g/dL (32-36); MEAN CORPUSCULAR VOLUME 81 fL (80-99); MEAN PLATELET VOLUME 9.3 fL (9.0-12.2); MONOCYTES # (AUTO) 0.4 10^3/uL (0.0-1.0); MONOCYTES % (AUTO) 4 % (0-12); NEUTROPHILS # (AUTO) 5.8 10^3/uL (1.8-7.8); NEUTROPHILS % (AUTO) 64 % (42-75); PLATELET COUNT 275 10^3/uL (130-400); WHITE BLOOD COUNT 9.2 10^3/uL (4.3-11.0)
[2022-06-20 11:55] LABS: BACTERIA,URINE NEGATIVE /HPF; RBC,URINE RARE /HPF; WBC,URINE RARE /HPF
[2022-06-20 12:00] LABS: POTASSIUM 4.5 MMOL/L (3.6-5.0)
[2022-06-20 12:02] LABS: CALCIUM 9.4 MG/DL (8.5-10.1)
[2022-06-20 12:03] LABS: TOTAL PROTEIN 7.1 GM/DL (6.4-8.2)
[2022-06-20 12:05] LABS: BILIRUBIN,TOTAL 0.6 MG/DL (0.1-1.0)
[2022-06-20 12:07] LABS: CREATININE SERUM 0.81 MG/DL (0.60-1.30)
[2022-06-20] MEDS ORDERED: LACTATED RINGERS 1,000 ML IV ONE (12:45)
[2022-06-20] MEDS ORDERED: diphenhydrAMINE 50 MG/ML INJ (BENADRYL) IVP ONE (12:45)
[2022-06-20] MEDS ORDERED: HOLD METFORMIN - RECEIVED CONTRAST 20 ML VIAL IV SCH (13:00)
[2022-06-20] MEDS ORDERED: NS 100 ML (IVPB) BAG IV ONE (13:00)
[2022-06-20] MEDS ORDERED: IOHEXOL 350 MG/ML 100 ML (OMNIPAQUE 350) VIAL IV ONE (13:00)
[2022-06-20] MEDS ORDERED: fentaNYL INJ 100 MCG/2 ML AMP IVP ONE (13:30)
--- NOTE | 2022-06-20 13:31 | Diagnostic Imaging Report ---
PROCEDURE: CT abdomen and pelvis with contrast. TECHNIQUE: Multiple contiguous axial images were obtained through the abdomen and pelvis after administration of intravenous contrast. Auto Exposure Controls were utilized during the CT exam to meet ALARA standards for radiation dose reduction. All CT scans use one or more of the following dose optimizing techniques: automated exposure control, MA and/or KvP adjustment based on patient size and exam type or iterative reconstruction. INDICATION: Abdominal pain, vomiting, has a history of pancreatitis. Exam compared with the CT chest, abdomen and pelvis 05/08/2022. FINDINGS: Pancreas, its duct and the peripancreatic fat unremarkable. Pancreatic parenchymal enhancement and morphology normal. No CT findings of pancreatitis, necrosis, abscess or mass. A few left upper quadrant splenules noted incidentally. Splenic vein, SMV and portal veins patent. The liver unremarkable. The adrenals negative. The left kidney absent. The right kidney unobstructed and unremarkable. There is no ileus or bowel obstruction. The appendix surgically absent. Uterus absent. There is no adnexal lesion. Urinary bladder unremarkable. No diverticulitis or volvulus. IMPRESSION: 1. Stable chronic postoperative findings with no acute appearing abnormality. 2. In particular, the pancreas and biliary ducts are stable and unremarkable. Dictated by: Dictated on workstation # [id number]
[2022-06-20 14:35] VITALS: BP 130/95
== END 2022-06-20 14:35 | disposition home or self-care (01) ==
LOC: EDUNIT# 11:01 → ER 11:03
DX: R10.13 Epigastric pain (principal); R11.2 Nausea with vomiting, unspecified; E66.9 Obesity, unspecified; Z68.41 Body mass index [BMI] 40.0-44.9, adult; Z90.49 Acquired absence of other specified parts of digestive tract; Z88.5 Allergy status to narcotic agent; Z88.8 Allergy status to other drugs, medicaments and biological substances; Z20.822 Contact with and (suspected) exposure to COVID-19
CPT/HCPCS: 36415; 74177; 80053; 81000; 83690; 85025; 86141; 87636; 99283

== ENCOUNTER 2022-07-10 08:32 | Emergency (ER) | payer MEDICARE, MEDICAID ==
[~2022-07-10] VITALS: Ht 160 cm; Wt 111.0 kg
[2022-07-10] MEDS ORDERED: FAMOTIDINE 20 MG (PEPCID) TABLET PO STA (09:36)
[2022-07-10] MEDS ORDERED: NS IV 1000 ML 1,000 ML IV STA (09:36)
--- NOTE | 2022-07-10 09:43 | ED Abdominal Pain ---
General Chief Complaint: Abdominal/GI Problems Stated Complaint: VOMITING | NAUSEA | Nursing Triage Note: PT STATES ABD PAIN NV SINCE LAST NIGHT, ZOFRAN 8MG TAKEN AT 0600, PHENERGAN 25MG AT 0630, GONZALES WHEN SHE URINATES Source of Information: Patient Exam Limitations: No Limitations History of Present Illness Date Seen by Provider: Jul 10, 2022 Time Seen by Provider: 09:30 Initial Comments Here with report of nausea and vomiting since last night. She did take Zofran this morning as well as Phenergan but has vomited both of those. Complains of burning with urination. Complains of burning epigastric pain. Does have history of chronic pancreatitis. She does follow at for this. No blood in her vomit. She had colonoscopy last month that did not show any significant findings per the patient. This was done at outside facility. Review of surgery notes here shows no colonoscopy or upper endoscopy within the last year but she has been seen by Dr. Marroquin for epigastric pain with recommendation for outpatient follow-up. Patient also follows with [facility]. Timing/Duration: 12 Hours Severity/Quality: Moderate, Aching, Burning Location: Epigastric Radiation: No Radiation Activities at Onset: None Modifying Factors: Worsens With Eating, Worsens With Urinating Associated Symptoms: No Back Pain, No Chest Pain, No Fever/Chills; Nausea/Vomiting; No Weakness Allergies and Home Medications Allergies Coded Allergies: meperidine (Verified Allergy, Unknown, 01/24/22) penicillin G (Verified Allergy, Unknown, 01/24/22) prochlorperazine (Verified Allergy, Unknown, 01/24/22) trimethobenzamide (Unverified Allergy, Unknown, 01/24/22) vancomycin (Verified Adverse Reaction, Intermediate, severe itching, 01/24/22) fentanyl (Verified Adverse Reaction, Unknown, HALLUCINATIONS, 02/27/22) Patient Home Medication List Home Medication List Reviewed: Yes Acetaminophen (Tylenol Extra Strength) 500 Mg Tablet, 1,000 MG PO Q8H PRN for P AIN-MILD (1-4), (Reported) Entered as Reported by: EMILIO SHEPPARD on 10/26/19 0812 Albuterol Sulfate (Ventolin Hfa) 90 Mcg Hfa.aer.ad, 2 PUFF INH Q6H PRN for SHORTNESS OF BREATH, (Reported) Entered as Reported by: CASSANDRA CHOPRA on 02/15/22 1215 Albuterol Sulfate (Albuterol Sulfate) 2.5 Mg/3 Ml (0.083 %) Vial.neb, 3 ML PO Q8H PRN for SHORTNESS OF BREATH, (Reported) Entered as Reported by: CASSANDRA CHOPRA on 02/15/22 1215 Amitriptyline HCl (Amitriptyline HCl) 10 Mg Tablet, 10 MG PO HS Prescribed by: CARMEN GIBBS on 03/01/22 1124 Atorvastatin Calcium (Atorvastatin Calcium) 40 Mg Tablet, 40 MG PO HS, (Reported) Entered as Reported by: CASSANDRA CHOPRA on 02/15/22 1215 Benzonatate (Benzonatate) 100 Mg Capsule, 100 MG PO TID PRN for COUGH, (Reported) Entered as Reported by: CASSANDRA CHOPRA on 02/15/22 1215 Cefdinir (Cefdinir) 300 Mg Capsule, 300 MG PO BID Prescribed by: YAN CHAPARRO on 04/21/22 0052 Cefdinir (Cefdinir) 300 Mg Capsule, 300 MG PO BID Prescribed by: YAN CHAPARRO on 05/08/22 2347 Cephalexin (Cephalexin) 500 Mg Tablet, 500 MG PO QID Prescribed by: YAN CHAPARRO on 05/22/22 0228 Cetirizine HCl (Cetirizine HCl) 10 Mg Tablet, 10 MG PO HS, (Reported) Entered as Reported by: CASSANDRA CHOPRA on 02/15/22 1215 Cyanocobalamin (Cyanocobalamin Injection) 1,000 Mcg/Ml Inj, 1,000 MCG IM MONTHLY, (Reported) Entered as Reported by: GRIFFIN ORTEGA on 07/24/21 1145 Diphenhydramine HCl (Benadryl) 25 Mg Capsule, 50 MG PO HS, (Reported) Entered as Reported by: EMILIO SHEPPARD on 10/26/19 0812 Hydrocodone/Acetaminophen (Hydrocodone-Acetamin 5-325 mg) 5 Mg-325 Mg Tablet, 1 TAB PO Q6H PRN for PAIN-MODERATE (5-7), (Reported) Entered as Reported by: CASSANDRA CHOPRA on 02/15/22 1215 Ondansetron (Ondansetron Odt) 8 Mg Tab.rapdis, 8 MG PO Q8H PRN for NAUSEA/VOMITING-1ST LINE, (Reported) Entered as Reported by: EMILIO SHEPPARD on 10/26/19 0812 Pantoprazole Sodium (Pantoprazole Sodium) 40 Mg Tablet.dr, 40 MG PO DAILY Prescribed by: CARMEN GIBBS on 03/01/22 1124 Promethazine HCl (Promethazine Tablet) 25 Mg Tablet, 25 MG PO Q6H PRN for NAUSEA/VOMITING-2ND LINE, (Reported) Entered as Reported by: LEX HOSKINS on 12/07/20 0916 Ropinirole HCl (Ropinirole HCl) 4 Mg Tablet, 4 MG PO HS, (Reported) Entered as Reported by: LEX HOSKINS on 06/28/17 1010 Sitagliptin Phos/Metformin HCl (Janumet Xr 50-1,000 mg Tablet) 50 Mg-1,000 Mg Tbmp.24hr, 2 TAB PO HS, (Reported) Entered as Reported by: LEX HOSKINS on 12/07/20 0916 Sucralfate (Sucralfate) 1 Gram Tablet, 1 GM PO ACHS Prescribed by: CARMNE GIBBS on 03/01/22 1124 Review of Systems Review of Systems Constitutional: see HPI; No chills, No fever EENTM: No Nose Congestion, No Throat Pain Respiratory: Denies Cough, Denies Shortness of Air Cardiovascular: Denies Chest Pain Gastrointestinal: Denies Diarrhea; Nausea, Vomiting Genitourinary: Frequency, Pain Musculoskeletal: no symptoms reported Skin: no symptoms reported Past [id number]-[id number] Hx Patient Social History Tobacco Use?: No Substance use?: No Alcohol Use?: No Immunizations Up To Date Tetanus Booster (TDap): Less than 5yrs PED Vaccines UTD: No First/Initial COVID19 Vaccinat: UNKNOWN DATE Second COVID19 Vaccination Alvaro: YES Third COVID19 Vaccination Date: UNKNOWN DATE Seasonal Allergies Seasonal Allergies: No Past Medical History Surgery/Hospitalization HX: several surgeries including 1 kidney removal, appendectomy, cammie., and power port placement, POWER PORT REMOVAL, HYSTERECTOMY Surgeries: Yes (hernia repair x2, knee scopes, port placement) Adenoidectomy, Appendectomy, Gallbladder, Hysterectomy, Nephrectomy, Orthopedic, Tonsillectomy Respiratory: Yes Asthma Currently Using CPAP: No Currently Using BIPAP: No Cardiac: Yes Hypertension Neurological: Yes Headaches /Migraines Reproductive Disorders: Yes (HX ENDOMETRIOSIS ) 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: 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 Sexually Transmitted Disease: No HIV/AIDS: No Genitourinary: Yes (S/P LEFT NEPHRECTOMY) UTI-Chronic Gastrointestinal: Yes (CHRONIC ABD PAIN/N/V./D) Abdominal Hernia, Gastroesophageal Reflux, Liver Disease/Jaundice, Obstructive Bowel, Pancreatitis, Chronic Diarrhea, Polyps Musculoskeletal: Yes (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) Chronic Back Pain Endocrine: Yes (OBESITY) Diabetes, Non-Insulin dep HEENT: No Loss of Vision: Denies Hearing Impairment: Denies Cancer: Yes Kidney Did You Recieve Any Treatments: Yes What Type of Treatment Did You: Surgical Intervention Psychosocial: Yes Anxiety, Depression Integumentary: No Herpes Blood Disorders: No Adverse Reaction/Blood Tranf: No (N/A) Family Medical History Reviewed Nursing Family Hx Cardiovascular disease 19 FATHER Completed stroke 19 FATHER Diabetes mellitus 19 FATHER Hypercholesterolemia 19 FATHER 19 MOTHER Hypertension 19 FATHER 19 MOTHER Neoplasm 19 MOTHER Psychosocial problem 19 FATHER 19 MOTHER No Pertinent Family Hx, Cancer, Diabetes, Hypertension PSH: -RIGHT KNEE SCOPE X 5 -LEFT KNEE SCOPE X 2 -TONSILLECTOMY / ADENOIDECTOMY -APPENDECTOMY -CHOLECYSTECTOMY -NASAL FRACTURE REPAIR -COCCYX REMOVAL -LEFT NEPHRECTOMY FOR MALIGNANCY -LEFT MID ABDOMEN INCISIONAL HERNIA REPAIR -DRAINAGE OF ABDOMINAL WALL ABSCESS -MULTIPLE EGD'S AND COLONOSCOPIES--LAST ONE DONE HERE 10/26/19 -HYSTERECTOMY / BILATERAL SALPINGO-OOPHORECTOMY 2007 -06/23/20--RIGHT CHEST WALL/SHOULDER INJECTION FOR THORACIC OUTLET SYNDROME--DONE IN -PORT REMOVED FROM LEFT CHEST 07/24/21 FOR NON-FUNCTIONING PORT-BY DR. MARROQUIN Physical Exam Vital Signs Vital Signs - First Documented 07/10/22 08:40 Temp 35.9 Pulse 104 Resp 20 B/P (MAP) 131/98 (109) Pulse Ox 97 O2 Delivery Room Air Capillary Refill : Less Than 3 Seconds Height/Weight/BMI Height: 5'3.00" Weight: 246lbs. 0oz. [id number]; 43.00 BMI Method:Stated General Appearance: WD/WN, mild distress HEENT: PERRL/EOMI, pharynx normal Neck: full range of motion, supple Respiratory: lungs clear, normal breath sounds Cardiovascular: no murmur, tachycardia Peripheral Pulses: 2+ Dorsalis Pedis (R), 2+ Left Dors-Pedis (L), 2+ Radial Pulses (R), 2+ Radial Pulses (L) Gastrointestinal: soft; No guarding, No rebound; tenderness (Epigastric mild) Extremities: non-tender, normal inspection Back: normal inspection, no CVA tenderness, no vertebral tenderness Neurologic/Psychiatric: alert, oriented x 3 Skin: normal color, warm/dry Progress/Results/Core Measures Results/Orders Lab Results Laboratory Tests Test 07/10/22 09:05 07/10/22 09:44 Range/Units White Blood Count 8.1 4.3-11.0 10^3/uL Red Blood Count 4.63 3.80-5.11 10^6/uL Hemoglobin 12.3 11.5-16.0 g/dL Hematocrit 38 35-52 % Mean Corpuscular Volume 81 80-99 fL Mean Corpuscular Hemoglobin 27 25-34 pg Mean Corpuscular Hemoglobin Concent 33 32-36 g/dL Red Cell Distribution Width 13.4 10.0-14.5 % Platelet Count 284 130-400 10^3/uL Mean Platelet Volume 10.2 9.0-12.2 fL Immature Granulocyte % (Auto) 0 % Neutrophils (%) (Auto) 64 42-75 % Lymphocytes (%) (Auto) 29 12-44 % Monocytes (%) (Auto) 4 0-12 % Eosinophils (%) (Auto) 3 0-10 % Basophils (%) (Auto) 0 0-10 % Neutrophils # (Auto) 5.2 1.8-7.8 10^3/uL Lymphocytes # (Auto) 2.3 1.0-4.0 10^3/uL Monocytes # (Auto) 0.4 0.0-1.0 10^3/uL Eosinophils # (Auto) 0.2 0.0-0.3 10^3/uL Basophils # (Auto) 0.0 0.0-0.1 10^3/uL Immature Granulocyte # (Auto) 0.0 0.0-0.1 10^3/uL Sodium Level 138 135-145 MMOL/L Potassium Level 4.3 3.6-5.0 MMOL/L Chloride Level 103 98-107 MMOL/L Carbon Dioxide Level 22 21-32 MMOL/L Anion Gap 13 5-14 MMOL/L Blood Urea Nitrogen 17 7-18 MG/DL Creatinine 0.90 0.60-1.30 MG/DL Estimat Glomerular Filtration Rate 84 BUN/Creatinine Ratio 19 Glucose Level 129 H 70-105 MG/DL Calcium Level 9.5 8.5-10.1 MG/DL Corrected Calcium 9.3 8.5-10.1 MG/DL Magnesium Level 2.1 1.6-2.4 MG/DL Total Bilirubin 0.3 0.1-1.0 MG/DL Aspartate Amino Transf (AST/SGOT) 45 H 5-34 U/L Alanine Aminotransferase (ALT/SGPT) 49 0-55 U/L Alkaline Phosphatase 86 40-136 U/L C-Reactive Protein High Sensitivity 0.26 0.00-0.50 MG/DL Total Protein 7.8 6.4-8.2 GM/DL Albumin 4.2 3.2-4.5 GM/DL Lipase 82 H 8-78 U/L Urine Color YELLOW Urine Clarity CLEAR Urine pH 6.0 5-9 Urine Specific [place] 1.025 H 1.016-1.022 Urine Protein NEGATIVE NEGATIVE Urine Glucose (UA) NEGATIVE NEGATIVE Urine Ketones NEGATIVE NEGATIVE Urine Nitrite NEGATIVE NEGATIVE Urine Bilirubin NEGATIVE NEGATIVE Urine Urobilinogen 0.2 < = 1.0 MG/DL Urine Leukocyte Esterase TRACE H NEGATIVE Urine RBC (Auto) NEGATIVE NEGATIVE Urine RBC NONE /HPF Urine WBC NONE /HPF Urine Squamous Epithelial Cells 0-2 /HPF Urine Crystals NONE /LPF Urine Bacteria NEGATIVE /HPF Urine Casts NONE /LPF Urine Mucus NEGATIVE /LPF Urine Culture Indicated NO My Orders Orders - YUKI MARCH MD Ondansetron Injection (Zofran Injectio (07/10/22 09:45) Ns Iv 1000 Ml (Sodium Chloride 0.9%) (07/10/22 09:36) Ed Iv/Invasive Line Start (07/10/22 09:36) Cbc With Automated Diff (07/10/22 09:36) Comprehensive Metabolic Panel (07/10/22 09:36) Hs C Reactive Protein (07/10/22 09:36) Lipase (07/10/22 09:36) Magnesium (07/10/22 09:36) Ua Culture If Indicated (07/10/22 09:36) Famotidine Tablet (Pepcid Tablet) (07/10/22 09:36) Pantoprazole Injection (Protonix Injecti (07/10/22 09:45) Ondansetron Injection (Zofran Injectio (07/10/22 11:30) Promethazine Injection (Phenergan Injec (07/10/22 13:11) Ed Iv/Invasive Line Start (07/10/22 13:11) Ns (Ivpb) (Sodium Chloride 0.9%) (07/10/22 13:15) Medications Given in ED Current Medications Medications Dose Ordered Sig/Neal Route Start Time Stop Time Status Last Admin Dose Admin Ondansetron HCl 4 mg ONCE ONCE IVP 07/10/22 09:45 07/10/22 09:46 DC 07/10/22 09:51 4 MG Ondansetron HCl 4 mg ONCE ONCE IVP 07/10/22 11:30 07/10/22 11:31 DC 07/10/22 11:37 4 MG Pantoprazole 40 mg ONCE ONCE IV 07/10/22 09:45 07/10/22 09:46 DC 07/10/22 09:51 40 MG Sodium Chloride 250 ml @ 0 mls/hr Q0M ONCE IV 07/10/22 13:15 07/10/22 13:16 DC 07/10/22 13:19 500 MLS/HR Vital Signs/I&O 07/10/22 08:40 Temp 35.9 Pulse 104 Resp 20 B/P (MAP) 131/98 (109) Pulse Ox 97 O2 Delivery Room Air Blood Pressure Mean: 109 Progress Progress Note : Progress Note Seen and evaluated. IV, labs, normal saline 1 L bolus, Zofran 4 mg IV, Pepcid 20 mg p.o. and Protonix 40 mg IV ordered. Labs include CBC, CMP, CRP, lipase and magnesium. Monitor patient. Patient historically has had multiple CT scans. We did discuss this. We will try to avoid if at all possible although it is a consideration based on lab findings. Patient verbalized understanding and agreement. Differential includes chronic nausea and vomiting, epigastric pain, pancreatitis, electrolyte abnormality, dehydration 1220: Patient still with nausea. Labs reviewed and CBC is normal, CMP is grossly normal with slightly elevated glucose and normal lipase. UA is showing slight concentration but otherwise no UTI. I have repeated Zofran 4 mg IV. Monitor patient. 1310: Patient has persistent nausea. Phenergan 25 mg IV and 250 mL of normal saline IV ordered. Monitor patient. 1420: Doing a little bett er on nausea now. She feels like she can tolerate at home. Discharged home with return precautions. Patient verbalized understanding instructions and agreement with plan. Departure Impression Primary Impression: Nausea & vomiting Qualified Codes: R11.2 - Nausea with vomiting, unspecified Disposition: HOME, SELF-CARE Condition: Improved Departure-Patient Inst. Decision time for Depature: 14:42 Referrals: CARMEN GIBBS MD (PCP/Family) Primary Care Physician Patient Instructions: Nausea and Vomiting, Adult Add. Discharge Instructions: All discharge instructions reviewed with patient and/or family. Voiced understanding. Clear a light diet over the next 24 hours and then advance as tolerated. Continue home medications as previously prescribed. Follow-up with your GI specialist for recheck and further evaluation. Return for worse pain, fever, vomiting, weakness, breathing problems or other concerns as needed. YUKI MARCH MD Jul 10, 2022 09:43
[2022-07-10 09:44] LABS: BASOPHILS % (AUTO) 0 % (0-10); EOSINOPHILS # (AUTO) 0.2 10^3/uL (0.0-0.3); EOSINOPHILS % (AUTO) 3 % (0-10); HEMATOCRIT 38 % (35-52); HEMOGLOBIN 12.3 g/dL (11.5-16.0); LYMPHOCYTES # (AUTO) 2.3 10^3/uL (1.0-4.0); LYMPHOCYTES % (AUTO) 29 % (12-44); MEAN CORPUSCULAR HEMOGLOBIN 27 pg (25-34); MEAN CORPUSCULAR HGB CONC 33 g/dL (32-36); MEAN CORPUSCULAR VOLUME 81 fL (80-99); MEAN PLATELET VOLUME 10.2 fL (9.0-12.2); MONOCYTES # (AUTO) 0.4 10^3/uL (0.0-1.0); MONOCYTES % (AUTO) 4 % (0-12); NEUTROPHILS # (AUTO) 5.2 10^3/uL (1.8-7.8); NEUTROPHILS % (AUTO) 64 % (42-75); PLATELET COUNT 284 10^3/uL (130-400); WHITE BLOOD COUNT 8.1 10^3/uL (4.3-11.0)
[2022-07-10] MEDS ORDERED: ONDANSETRON 4 MG/2 ML (SDV) Z0FRAN IVP ONE ×2 (09:45→11:30)
[2022-07-10] MEDS ORDERED: PANTOPRAZOLE 40 MG (PROTONIX) VIAL IV ONE (09:45)
[2022-07-10 09:53] LABS: BILIRUBIN,URINE NEGATIVE (NEGATIVE); CLARITY,URINE CLEAR; COLOR,URINE YELLOW; GLUCOSE, URINE (UA) NEGATIVE (NEGATIVE); KETONES,URINE NEGATIVE (NEGATIVE); LEUKOCYTE ESTERASE ,URINE TRACE (NEGATIVE); NITRITE,URINE NEGATIVE (NEGATIVE); PROTEIN,URINE NEGATIVE (NEGATIVE)
[2022-07-10 10:04] LABS: ALBUMIN 4.2 GM/DL (3.2-4.5); POTASSIUM 4.3 MMOL/L (3.6-5.0)
[2022-07-10 10:05] LABS: CALCIUM 9.5 MG/DL (8.5-10.1)
[2022-07-10 10:07] LABS: TOTAL PROTEIN 7.8 GM/DL (6.4-8.2)
[2022-07-10 10:08] LABS: BILIRUBIN,TOTAL 0.3 MG/DL (0.1-1.0)
[2022-07-10 10:10] LABS: CREATININE SERUM 0.9 MG/DL (0.60-1.30)
[2022-07-10 10:12] LABS: BACTERIA,URINE NEGATIVE /HPF; SQUAMOUS EPITHELIAL CELL,UR 0-2 /HPF
[2022-07-10 10:13] LABS: MAGNESIUM 2.1 MG/DL (1.6-2.4)
[2022-07-10] MEDS ORDERED: PROMETHAZINE INJ 25 MG/ML (PHENERGAN) AMP IVP STA (13:11)
[2022-07-10] MEDS ORDERED: NS (IVPB) 250 ML IV ONE (13:15)
[2022-07-10 14:51] VITALS: BP 125/89
== END 2022-07-10 14:51 | disposition home or self-care (01) ==
LOC: EDUNIT# 08:32 → ER 08:34
DX: R11.2 Nausea with vomiting, unspecified (principal); R10.13 Epigastric pain; E66.9 Obesity, unspecified; Z68.41 Body mass index [BMI] 40.0-44.9, adult; Z90.49 Acquired absence of other specified parts of digestive tract
CPT/HCPCS: 36415; 80053; 81000; 83690; 83735; 85025; 86141; 99283

== ENCOUNTER 2022-07-27 10:00 | Emergency (ER) | payer MEDICARE, MEDICAID ==
[~2022-07-27] VITALS: Ht 160 cm; Wt 112.9 kg
[2022-07-27 11:06] LABS: BASOPHILS # (AUTO) 0.1 10^3/uL (0.0-0.1); BASOPHILS % (AUTO) 1 % (0-10); EOSINOPHILS # (AUTO) 0.2 10^3/uL (0.0-0.3); EOSINOPHILS % (AUTO) 2 % (0-10); HEMATOCRIT 39 % (35-52); HEMOGLOBIN 12.6 g/dL (11.5-16.0); LYMPHOCYTES # (AUTO) 2.6 10^3/uL (1.0-4.0); LYMPHOCYTES % (AUTO) 30 % (12-44); MEAN CORPUSCULAR HEMOGLOBIN 26 pg (25-34); MEAN CORPUSCULAR HGB CONC 32 g/dL (32-36); MEAN CORPUSCULAR VOLUME 81 fL (80-99); MEAN PLATELET VOLUME 10.3 fL (9.0-12.2); MONOCYTES # (AUTO) 0.4 10^3/uL (0.0-1.0); MONOCYTES % (AUTO) 4 % (0-12); NEUTROPHILS # (AUTO) 5.4 10^3/uL (1.8-7.8); NEUTROPHILS % (AUTO) 62 % (42-75); PLATELET COUNT 272 10^3/uL (130-400); WHITE BLOOD COUNT 8.7 10^3/uL (4.3-11.0)
[2022-07-27 11:07] LABS: BILIRUBIN,URINE NEGATIVE (NEGATIVE); CLARITY,URINE CLEAR; COLOR,URINE YELLOW; GLUCOSE, URINE (UA) NEGATIVE (NEGATIVE); KETONES,URINE NEGATIVE (NEGATIVE); LEUKOCYTE ESTERASE ,URINE 1+ (NEGATIVE); NITRITE,URINE NEGATIVE (NEGATIVE); PROTEIN,URINE NEGATIVE (NEGATIVE)
[2022-07-27 11:10] LABS: ALBUMIN 4.3 GM/DL (3.2-4.5); POTASSIUM 4.4 MMOL/L (3.6-5.0)
[2022-07-27 11:11] LABS: CALCIUM 9.9 MG/DL (8.5-10.1)
[2022-07-27 11:12] LABS: TOTAL PROTEIN 7.5 GM/DL (6.4-8.2)
[2022-07-27 11:14] LABS: BILIRUBIN,TOTAL 0.4 MG/DL (0.1-1.0)
[2022-07-27 11:16] LABS: CREATININE SERUM 0.79 MG/DL (0.60-1.30)
--- NOTE | 2022-07-27 11:23 | ED Abdominal Pain ---
General Chief Complaint: Rect Problems Stated Complaint: GI PROBLEMS | ABD PAIN | N/V Nursing Triage Note: PT AMBULATE TO ROOM 06 WITHOUT DIFFICULTY WITH C/O BLOOD STOOLS AT 0500 TODAY, N/V/ABD PAIN X2 DAYS. PT REPORTS CONTACTING HER PCP AND TOLD TO COME TO ED. PT REPORTS HAVING AN APPT WITH GI DOCTOR AT IN AUGUST. Source of Information: Patient Exam Limitations: No Limitations (KAREN HOLLEY APRN) History of Present Illness Date Seen by Provider: Jul 27, 2022 Time Seen by Provider: 11:01 Initial Comments 37-year-old female presents to the ED with complaints of bright red blood in her stool starting this morning around 5 AM. States she went to go to the bathroom, had a loose stool with a lot of bright red blood. States she has had multiple episodes of bright red blood without stool since. States she has a history of hemorrhoids, but states this does not feel like a hemorrhoid. States she had a normal bowel movement yesterday, denies any hard stool. For the last 2 to 3 days she has been having abdominal pain, nausea, vomiting, and decreased appetite. Reports her pain is located in her mid upper abdomen, left lower quadrant, and she occasionally has a sharp pain in her right flank. She has a long history of abdominal pain and recurrent vomiting. She sees GI at . She took Tylenol and Phenergan this morning at 7 AM. States she saw Dr. Marroquin yesterday, states he told her that he did not feel another hernia. Patient has had a couple of hernias, and has a mesh in her left lower quadrant for a hernia repair. She states she has a history of pancreatitis and 1 bowel obstruction. She also has a history of depression, anxiety, TOS, migraines, kidney cancer with left nep hrectomy. She currently takes Requip, B12 injections, Ozempic (states the dose was recently increased last week), Janumet, Benadryl, hydrocodone, atorvastatin, Zofran, Phenergan. She denies fevers, chest pain, shortness of air. (KAREN HOLLEY APRN) Allergies and Home Medications Allergies Coded Allergies: meperidine (Verified Allergy, Unknown, 01/24/22) penicillin G (Verified Allergy, Unknown, 01/24/22) prochlorperazine (Verified Allergy, Unknown, 01/24/22) trimethobenzamide (Unverified Allergy, Unknown, 01/24/22) vancomycin (Verified Adverse Reaction, Intermediate, severe itching, 01/24/22) fentanyl (Verified Adverse Reaction, Unknown, HALLUCINATIONS, 02/27/22) Patient Home Medication List Home Medication List Reviewed: Yes (KAREN HOLLEY APRN) Acetaminophen (Tylenol Extra Strength) 500 Mg Tablet, 1,000 MG PO Q8H PRN for PAIN-MILD (1-4), (Reported) Entered as Reported by: EMILIO SHEPPARD on 10/26/19 0812 Albuterol Sulfate (Ventolin Hfa) 90 Mcg Hfa.aer.ad, 2 PUFF INH Q6H PRN for SHORTNESS OF BREATH, (Reported) Entered as Reported by: CASSANDRA CHOPRA on 02/15/22 1215 Albuterol Sulfate (Albuterol Sulfate) 2.5 Mg/3 Ml (0.083 %) Vial.neb, 3 ML PO Q8H PRN for SHORTNESS OF BREATH, (Reported) Entered as Reported by: CASSANDRA CHOPRA on 02/15/22 1215 Amitriptyline HCl (Amitriptyline HCl) 10 Mg Tablet, 10 MG PO HS Prescribed by: CARMEN GIBBS on 03/01/22 1124 Atorvastatin Calcium (Atorvastatin Calcium) 40 Mg Tablet, 40 MG PO HS, (Reported) Entered as Reported by: CASSANDRA CHOPRA on 02/15/22 1215 Benzonatate (Benzonatate) 100 Mg Capsule, 100 MG PO TID PRN for COUGH, (Reported) Entered as Reported by: CASSANDRA CHOPRA on 02/15/22 1215 Cefdinir (Cefdinir) 300 Mg Capsule, 300 MG PO BID Prescribed by: YAN CHAPARRO on 04/21/22 0052 Cefdinir (Cefdinir) 300 Mg Capsule, 300 MG PO BID Prescribed by: YAN CHAPARRO on 05/08/22 2347 Cephalexin (Cephalexin) 500 Mg Tablet, 500 MG PO QID Prescribed by: YAN CHAPARRO on 05/22/22 0228 Cetirizine HCl (Cetirizine HCl) 10 Mg Tablet, 10 MG PO HS, (Reported) Entered as Reported by: CASSANDRA CHOPRA on 02/15/22 1215 Cyanocobalamin (Cyanocobalamin Injection) 1,000 Mcg/Ml Inj, 1,000 MCG IM MONTHLY, (Reported) Entered as Reported by: GRIFFIN ORTEGA on 07/24/21 1145 Diphenhydramine HCl (Benadryl) 25 Mg Capsule, 50 MG PO HS, (Reported) Entered as Reported by: EMILIO SHEPPARD on 10/26/19 0812 Hydrocodone/Acetaminophen (Hydrocodone-Acetamin 5-325 mg) 5 Mg-325 Mg Tablet, 1 TAB PO Q6H PRN for PAIN-MODERATE (5-7), (Reported) Entered as Reported by: CASSANDRA CHOPRA on 02/15/22 1215 Ondansetron (Ondansetron Odt) 8 Mg Tab.rapdis, 8 MG PO Q8H PRN for NAUSEA/VO MITING-1ST LINE, (Reported) Entered as Reported by: EMILIO SHEPPARD on 10/26/19 0812 Pantoprazole Sodium (Pantoprazole Sodium) 40 Mg Tablet.dr, 40 MG PO DAILY Prescribed by: CARMEN GIBBS on 03/01/22 1124 Promethazine HCl (Promethazine Tablet) 25 Mg Tablet, 25 MG PO Q6H PRN for NAUSEA/VOMITING-2ND LINE, (Reported) Entered as Reported by: LEX HOSKINS on 12/07/20 0916 Ropinirole HCl (Ropinirole HCl) 4 Mg Tablet, 4 MG PO HS, (Reported) Entered as Reported by: LEX HOSKINS on 06/28/17 1010 Sitagliptin Phos/Metformin HCl (Janumet Xr 50-1,000 mg Tablet) 50 Mg-1,000 Mg Tbmp.24hr, 2 TAB PO HS, (Reported) Entered as Reported by: LEX HOSKINS on 12/07/20 0916 Sucralfate (Sucralfate) 1 Gram Tablet, 1 GM PO ACHS Prescribed by: CARMEN GIBBS on 03/01/22 1124 Review of Systems Review of Systems Constitutional: see HPI (KAREN HOLLEY LADLE WATCHER) Past Ikehhge-Iukeqx-Czkpjy Hx Patient Social History Tobacco Use?: No Smoking Status: Never a Smoker Smokeless Tobacco Frequency: Never a User Use of E-Cig and/or Vaping dev: No Use of E-Cig and/or Vaping Clifford: Never a User Substance use?: No Alcohol Use?: No Pt feels they are or have been: No (KAREN HOLLEY APRN) Immunizations Up To Date Tetanus Booster (TDap): Less than 5yrs PED Vaccines UTD: No First/Initial COVID19 Vaccinat: UNKNOWN DATE Second COVID19 Vaccination Alvaro: YES Third COVID19 Vaccination Date: UNKNOWN DATE (KAREN HOLLEY APRN) Seasonal Allergies Seasonal Allergies: No (KAREN HOLLEY APRN) Past Medical History Surgery/Hospitalization HX: several surgeries including 1 kidney removal, appendectomy, cammie., and power port placement, POWER PORT REMOVAL, HYSTERECTOMY Surgeries: Yes (hernia repair x2, knee scopes, port placement) Adenoidectomy, Appendectomy, Gallbladder, Hysterectomy, Nephrectomy, Orthopedic, Tonsillectomy Respiratory: Yes Asthma Currently Using CPAP: No Currently Using BIPAP: No Cardiac: Yes Hypertension Neurological: Yes Headaches /Migraines Reproductive Disorders: Yes (HX ENDOMETRIOSIS ) 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: 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 PROCESSING TECH History: Hysterectomy Sexually Transmitted Disease: No HIV/AIDS: No Genitourinary: Yes (S/P LEFT NEPHRECTOMY) UTI-Chronic Gastrointestinal: Yes (CHRONIC ABD PAIN/N/V./D) Abdominal Hernia, Gastroesophageal Reflux, Liver Disease/Jaundice, Obstructive Bowel, Pancreatitis, Chronic Diarrhea, Polyps Musculoskeletal: Yes (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) Chronic Back Pain Endocrine: Yes (OBESITY) Diabetes, Non-Insulin dep HEENT: No Loss of Vision: Denies Hearing Impairment: Denies Cancer: Yes Kidney Did You Recieve Any Treatments: Yes What Type of Treatment Did You: Surgical Intervention Psychosocial: Yes Anxiety, Depression Integumentary: No Herpes Blood Disorders: No Adverse Reaction/Blood Tranf: No (N/A) (KAREN HOLLEY APRN) Family Medical History Cardiovascular disease 19 FATHER Completed stroke 19 FATHER Diabetes mellitus 19 FATHER Hypercholesterolemia 19 FATHER 19 MOTHER Hypertension 19 FATHER 19 MOTHER Neoplasm 19 MOTHER Psychosocial problem 19 FATHER 19 MOTHER No Pertinent Family Hx, Cancer, Diabetes, Hypertension PSH: -RIGHT KNEE SCOPE X 5 -LEFT KNEE SCOPE X 2 -TONSILLECTOMY / ADENOIDECTOMY -APPENDECTOMY -CHOLECYSTECTOMY -NASAL FRACTURE REPAIR -COCCYX REMOVAL -LEFT NEPHRECTOMY FOR MALIGNANCY -LEFT MID ABDOMEN INCISIONAL HERNIA REPAIR -DRAINAGE OF ABDOMINAL WALL ABSCESS -MULTIPLE EGD'S AND COLONOSCOPIES--LAST ONE DONE HERE 10/26/19 -HYSTERECTOMY / BILATERAL SALPINGO-OOPHORECTOMY 2007 -06/23/20--RIGHT CHEST WALL/SHOULDER INJECTION FOR THORACIC OUTLET SYNDROME--DONE IN -PORT REMOVED FROM LEFT CHEST 07/24/21 FOR NON-FUNCTIONING PORT-BY DR. MARROQUIN (KAREN HOLLEY APRN) Physical Exam Vital Signs Vital Signs - First Documented 07/27/22 07/27/22 10:06 15:17 Temp 37.0 Pulse 102 Resp 17 B/P (MAP) 151/79 (103) Pulse Ox 98 O2 Delivery Room Air (IZABEAL RENDON MD) Vital Signs Capillary Refill : Less Than 3 Seconds (KAREN HOLLEY APRN) Height/Weight/BMI Height: 5'3.00" Weight: 246lbs. 0oz. [id number]; 44.00 BMI Method:Stated General Appearance: WD/WN, no apparent distress Neck: supple, normal inspection Respiratory: lungs clear, normal breath sounds, no respiratory distress, no accessory muscle use Cardiovascular: regular rate, rhythm, no edema, no gallop, no JVD, no murmur Gastrointestinal: normal bowel sounds, soft, no organomegaly, no pulsatile mass, tenderness (Mid upper, LUQ) Extremities: normal range of motion, normal inspection Back: normal inspection Neurologic/Psychiatric: alert, normal mood/affect, oriented x 3 Skin: normal color, warm/dry (KAREN HOLLEY APRN) Progress/Results/Core Measures Results/Orders Lab Results Laboratory Tests Test 07/27/22 10:31 Range/Units White Blood Count 8.7 4.3-11.0 10^3/uL Red Blood Count 4.81 3.80-5.11 10^6/uL Hemoglobin 12.6 11.5-16.0 g/dL Hematocrit 39 35-52 % Mean Corpuscular Volume 81 80-99 fL Mean Corpuscular Hemoglobin 26 25-34 pg Mean Corpuscular Hemoglobin Concent 32 32-36 g/dL Red Cell Distribution Width 13.5 10.0-14.5 % Platelet Count 272 130-400 10^3/uL Mean Platelet Volume 10.3 9.0-12.2 fL Immature Granulocyte % (Auto) 1 % Neutrophils (%) (Auto) 62 42-75 % Lymphocytes (%) (Auto) 30 12-44 % Monocytes (%) (Auto) 4 0-12 % Eosinophils (%) (Auto) 2 0-10 % Basophils (%) (Auto) 1 0-10 % Neutrophils # (Auto) 5.4 1.8-7.8 10^3/uL Lymphocytes # (Auto) 2.6 1.0-4.0 10^3/uL Monocytes # (Auto) 0.4 0.0-1.0 10^3/uL Eosinophils # (Auto) 0.2 0.0-0.3 10^3/uL Basophils # (Auto) 0.1 0.0-0.1 10^3/uL Immature Granulocyte # (Auto) 0.0 0.0-0.1 10^3/uL Urine Color YELLOW Urine Clarity CLEAR Urine pH 7.0 5-9 Urine Specific Stanley 1.010 L 1.016-1.022 Urine Protein NEGATIVE NEGATIVE Urine Glucose (UA) NEGATIVE NEGATIVE Urine Ketones NEGATIVE NEGATIVE Urine Nitrite NEGATIVE NEGATIVE Urine Bilirubin NEGATIVE NEGATIVE Urine Urobilinogen 0.2 < = 1.0 MG/DL Urine Leukocyte Esterase 1+ H NEGATIVE Urine RBC (Auto) NEGATIVE NEGATIVE Urine RBC RARE /HPF Urine WBC 2-5 /HPF Urine Squamous Epithelial Cells 5-10 /HPF Urine Crystals NONE /LPF Urine Bacteria TRACE /HPF Urine Casts NONE /LPF Urine Mucus NEGATIVE /LPF Urine Culture Indicated NO Urine Test NEGATIVE NEGATIVE Sodium Level 141 135-145 MMOL/L Potassium Level 4.4 3.6-5.0 MMOL/L Chloride Level 106 98-107 MMOL/L Carbon Dioxide Level 24 21-32 MMOL/L Anion Gap 11 5-14 MMOL/L Blood Urea Nitrogen 12 7-18 MG/DL Creatinine 0.79 0.60-1.30 MG/DL Estimat Glomerular Filtration Rate 98 BUN/Creatinine Ratio 15 Glucose Level 108 H 70-105 MG/DL Calcium Level 9.9 8.5-10.1 MG/DL Corrected Calcium 9.7 8.5-10.1 MG/DL Total Bilirubin 0.4 0.1-1.0 MG/DL Aspartate Amino Transf (AST/SGOT) 29 5-34 U/L Alanine Aminotransferase (ALT/SGPT) 36 0-55 U/L Alkaline Phosphatase 89 40-136 U/L Total Protein 7.5 6.4-8.2 GM/DL Albumin 4.3 3.2-4.5 GM/DL Amylase Level 86 25-125 U/L Lipase 57 8-78 U/L (IZABELA RENDON MD) Vital Signs/I&O 07/27/22 07/27/22 10:06 15:17 Temp 37.0 36.6 Pulse 102 91 Resp 17 17 B/P (MAP) 151/79 (103) 137/95 Pulse Ox 98 O2 Delivery Room Air Room Air 07/28/22 00:00 Intake Total 1000 ml Balance 1000 ml (IZABELA RENDON MD) Blood Pressure Mean: 103 Progress Progress Note #1: Time: 11:24 Progress Note Patient seen and evaluated, resting comfortably, no acute distress. Based on exam and symptoms, differential diagnosis includes but is not limited to pancreatitis, GI bleed, hemorrhoids, gastroenteritis, diverticulitis, reaction to increase in Ozempic. Work-up initiated, CBC, CMP, amylase, lipase, UA. Progress Note #2: Time: 12:27 Progress Note Labs reviewed. CBC grossly negative, CMP grossly negative, glucose slightly elevated 108. UA positive for 1+ leukocytes, WBCs 2-5, squamous epithelial 5- 10, trace bacteria. Amylase and lipase normal. Will not treat as UTI due to lack of symptoms, and likely contaminated specimen. Progress Note #3: Time: 12:52 Progress Note Results discussed with patient. Patient reevaluated, still complaining of nausea. Phenergan ordered. Progress Note #4: Time: 13:32 Progress Note Patient reevaluated, states nausea medicine starting to work. Still complains of abdominal pain. Would like to try Toradol. Progress Note #5: Time: 14:15 Progress Note Patient reevaluated again, states she is feeling better. States she called the office of her GI provider, states that her provider is going to call and speak with this provider. Progress Note #6: Time: 14:[address] Harvey, GI at , called to speak with this provider. He would like an EKG to assess for prolonged QT due to multiple antinausea medications. Otherwise, he agrees with discharge plan. EKG ordered. He will have his nurse call the patient to schedule a colonoscopy within the next 4 weeks. Patient informed. Patient agrees to discharge plan. Discharge directions and return precautions provided. (KAREN HOLLEY APRN) Departure Impression Primary Impression: Rectal bleeding Disposition: 01 HOME, SELF-CARE Condition: Stable Departure-Patient Inst. Decision time for Depature: 15:04 (AKREN HOLLEY APRN) Referrals: CARMEN GIBBS MD (PCP/Family) Primary Care Physician Patient Instructions: Bloody Stools, Adult (DC) Add. Discharge Instructions: Follow-up with Dr. Harvey. His office will call you to schedule your repeat colonoscopy. Return for increased bloody stools, dizziness, lightheadedness, chest pain, shortness of breath, or any other new, concerning, worsening symptoms. All discharge instructions reviewed with patient and/or family. Voiced understanding. ATTENDING PHYSICIAN NOTE: I was physically present as attending physician in the emergency department during the care of this patient. I briefly discussed this patients past history with Karen before she was seen. I did not personally interview or examine this patient, and I was not otherwise directly involved in the decision making or delivery of care for this patient. (IZABELA RENDON MD) Copy Copies To 1: CARMEN GIBBS MD, BRITTANY R APRN Jul 27, 2022 11:23 IZABELA RENDON MD Jul 28, 2022 22:34
[2022-07-27 11:38] LABS: BACTERIA,URINE TRACE /HPF; RBC,URINE RARE /HPF
[2022-07-27] MEDS ORDERED: ONDANSETRON 4 MG/2 ML (SDV) Z0FRAN IVP ONE (11:45)
[2022-07-27] MEDS ORDERED: morphine INJ 10 MG/ML 1ML (SYR OR VIAL) IVP ONE (11:45)
[2022-07-27] MEDS ORDERED: NS IV 1000 ML 1,000 ML IV SCH (11:45)
[2022-07-27] MEDS ORDERED: PROMETHAZINE INJ 25 MG/ML (PHENERGAN) AMP IVP ONE (13:00)
[2022-07-27] MEDS ORDERED: KETOROLAC 15 MG/ML VIAL IVP ONE (13:45)
[2022-07-27] MEDS ORDERED: METOCLOPRAMIDE INJ 10 MG/2 ML (REGLAN) IVP ONE (15:15)
[2022-07-27 15:17] VITALS: BP 137/95
== END 2022-07-27 15:17 ==
LOC: EDUNIT# 10:00 → ER 10:02
DX: K62.5 Hemorrhage of anus and rectum (principal); E66.9 Obesity, unspecified; E11.9 Type 2 diabetes mellitus without complications; Z68.41 Body mass index [BMI] 40.0-44.9, adult; Z87.19 Personal history of other diseases of the digestive system; Z90.49 Acquired absence of other specified parts of digestive tract; Z98.890 Other specified postprocedural states
CPT/HCPCS: 36415; 80053; 81000; 82150; 82274; 83690; 84703; 85025; 93005; 96361; 96374; 96375

== ENCOUNTER 2022-07-30 22:22 | Emergency (ER) | payer MEDICARE, MEDICAID ==
[2022-07-30 22:48] LABS: BILIRUBIN,URINE NEGATIVE (NEGATIVE); CLARITY,URINE CLEAR; COLOR,URINE YELLOW; GLUCOSE, URINE (UA) NEGATIVE (NEGATIVE); KETONES,URINE NEGATIVE (NEGATIVE); LEUKOCYTE ESTERASE ,URINE 1+ (NEGATIVE); NITRITE,URINE NEGATIVE (NEGATIVE); PH,URINE 6.5 (5-9); PROTEIN,URINE NEGATIVE (NEGATIVE)
[2022-07-30 22:59] LABS: BACTERIA,URINE FEW /HPF; RBC,URINE RARE /HPF
[2022-07-30 23:00] LABS: SQUAMOUS EPITHELIAL CELL,UR 25-50 /HPF
[2022-07-30 23:05] LABS: BASOPHILS % (AUTO) 1 % (0-10); EOSINOPHILS # (AUTO) 0.2 10^3/uL (0.0-0.3); EOSINOPHILS % (AUTO) 2 % (0-10); HEMATOCRIT 38 % (35-52); MEAN CORPUSCULAR VOLUME 81 fL (80-99)
[2022-07-30 23:07] LABS: LYMPHOCYTES # (AUTO) 3.6 10^3/uL (1.0-4.0); LYMPHOCYTES % (AUTO) 42 % (12-44); MEAN CORPUSCULAR HEMOGLOBIN 26 pg (25-34); MEAN CORPUSCULAR HGB CONC 32 g/dL (32-36); MEAN PLATELET VOLUME 10.6 fL (9.0-12.2); MONOCYTES # (AUTO) 0.4 10^3/uL (0.0-1.0); MONOCYTES % (AUTO) 5 % (0-12); NEUTROPHILS # (AUTO) 4.3 10^3/uL (1.8-7.8); NEUTROPHILS % (AUTO) 50 % (42-75); PLATELET COUNT 139 10^3/uL (130-400); WHITE BLOOD COUNT 8.6 10^3/uL (4.3-11.0)
[2022-07-30 23:17] LABS: ALBUMIN 4.3 GM/DL (3.2-4.5); POTASSIUM 3.9 MMOL/L (3.6-5.0)
[2022-07-30 23:18] LABS: CALCIUM 9.5 MG/DL (8.5-10.1)
[2022-07-30 23:20] LABS: TOTAL PROTEIN 7.7 GM/DL (6.4-8.2)
[2022-07-30 23:21] LABS: BILIRUBIN,TOTAL 0.4 MG/DL (0.1-1.0)
[2022-07-30 23:23] LABS: CREATININE SERUM 0.87 MG/DL (0.60-1.30)
[2022-07-30] MEDS ORDERED: PROMETHAZINE INJ 25 MG/ML (PHENERGAN) AMP IVP ONE (23:45)
[2022-07-30] MEDS ORDERED: LACTATED RINGERS 1,000 ML IV ONE (23:45)
--- NOTE | 2022-07-31 02:23 | ED Abdominal Pain ---
General Chief Complaint: Abdominal/GI Problems Stated Complaint: PANCREAS PAIN Nursing Triage Note: TO ED VIA POV AND AMBULATORY TO ROOM 6 WITH C/O "CAN'T KEEP ANYTHING DOWN". CONTINUED ISSUES FROM ER VISIT SEVERAL DAYS AGO. STATES SHE SPOKE WITH GI DOCTOR AND WAS TOLD TO GO TO [facility]. STATES SHE WAS IN WAITING ROOM SINCE 1400 TODAY AND GOT TIRED OF WAITING SO LEFT AND CAME HERE. Source of Information: Patient Exam Limitations: No Limitations History of Present Illness Date Seen by Provider: Jul 30, 2022 Time Seen by Provider: 22:30 Allergies and Home Medications Allergies Coded Allergies: meperidine (Verified Allergy, Unknown, 01/24/22) penicillin G (Verified Allergy, Unknown, 01/24/22) prochlorperazine (Verified Allergy, Unknown, 01/24/22) trimethobenzamide (Unverified Allergy, Unknown, 01/24/22) vancomycin (Verified Adverse Reaction, Intermediate, severe itching, 01/24/22) fentanyl (Verified Adverse Reaction, Unknown, HALLUCINATIONS, 02/27/22) Patient Home Medication List Acetaminophen (Tylenol Extra Strength) 500 Mg Tablet, 1,000 MG PO Q8H PRN for PAIN-MILD (1-4), (Reported) Entered as Reported by: EMILIO SHEPPARD on 10/26/19 0812 Albuterol Sulfate (Ventolin Hfa) 90 Mcg Hfa.aer.ad, 2 PUFF INH Q6H PRN for SHORTNESS OF BREATH, (Reported) Entered as Reported by: CASSANDRA CHOPRA on 02/15/22 1215 Albuterol Sulfate (Albuterol Sulfate) 2.5 Mg/3 Ml (0.083 %) Vial.neb, 3 ML PO Q8H PRN for SHORTNESS OF BREATH, (Reported) Entered as Reported by: CASSANDRA CHOPRA on 02/15/22 1215 Amitriptyline HCl (Amitriptyline HCl) 10 Mg Tablet, 10 MG PO HS Prescribed by: CARMEN GIBBS on 03/01/22 1124 Atorvastatin Calcium (Atorvastatin Calcium) 40 Mg Tablet, 40 MG PO HS, (Reported) Entered as Reported by: CASSANDRA CHOPRA on 02/15/22 1215 Benzonatate (Benzonatate) 100 Mg Capsule, 100 MG PO TID PRN for COUGH, (Report ed) Entered as Reported by: CASSANDRA CHOPRA on 02/15/22 1215 Cefdinir (Cefdinir) 300 Mg Capsule, 300 MG PO BID Prescribed by: YAN CHAPARRO on 04/21/22 0052 Cefdinir (Cefdinir) 300 Mg Capsule, 300 MG PO BID Prescribed by: YAN CHAPARRO on 05/08/22 2347 Cephalexin (Cephalexin) 500 Mg Tablet, 500 MG PO QID Prescribed by: YAN CHAPARRO on 05/22/22 0228 Cetirizine HCl (Cetirizine HCl) 10 Mg Tablet, 10 MG PO HS, (Reported) Entered as Reported by: CASSANDRA CHOPRA on 02/15/22 1215 Cyanocobalamin (Cyanocobalamin Injection) 1,000 Mcg/Ml Inj, 1,000 MCG IM MONTHLY, (Reported) Entered as Reported by: GRIFFIN ORTEGA on 07/24/21 1145 Diphenhydramine HCl (Benadryl) 25 Mg Capsule, 50 MG PO HS, (Reported) Entered as Reported by: EMILIO SHEPPARD on 10/26/19 0812 Glycerin (Glycerin) Adult Supp.rect, 1 EACH RC DAILY PRN for CONSTIPATION Prescribed by: IZABELA MAC on 07/31/22 0238 Hydrocodone/Acetaminophen (Hydrocodone-Acetamin 5-325 mg) 5 Mg-325 Mg Tablet, 1 TAB PO Q6H PRN for PAIN-MODERATE (5-7), (Reported) Entered as Reported by: CASSANDRA CHOPRA on 02/15/22 121 Metoclopramide HCl (Reglan) 5 Mg Tablet, 5 MG PO Q6H PRN for NAUSEA/VOMITING Prescribed by: IZABELA MAC on 07/31/22 0238 Ondansetron (Ondansetron Odt) 8 Mg Tab.rapdis, 8 MG PO Q8H PRN for NAUSEA/VOMITING-1ST LINE, (Reported) Entered as Reported by: EMILIO SHEPPARD on 10/26/19 0812 Pantoprazole Sodium (Pantoprazole Sodium) 40 Mg Tablet.dr, 40 MG PO DAILY Prescribed by: CARMEN GIBBS on 03/01/22 1124 Promethazine HCl (Promethazine Tablet) 25 Mg Tablet, 25 MG PO Q6H PRN for NAUSEA/VOMITING-2ND LINE, (Reported) Entered as Reported by: LEX HOSKINS on 12/07/20 0916 Ropinirole HCl (Ropinirole HCl) 4 Mg Tablet, 4 MG PO HS, (Reported) Entered as Reported by: LEX HOSKINS on 06/28/17 1010 Sitagliptin Phos/Metformin HCl (Janumet Xr 50-1,000 mg Tablet) 50 Mg-1,000 Mg Tbmp.24hr, 2 TAB PO HS, (Reported) Entered as Reported by: LEX HOSKINS on 12/07/20 0916 Sucralfate (Sucralfate) 1 Gram Tablet, 1 GM PO ACHS Prescribed by: CARMEN GIBBS on 03/01/22 1124 Past Eoeontl-Vydfex-Cdumlr Hx Patient Social History Tobacco Use?: No Substance use?: No Alcohol Use?: No Immunizations Up To Date Tetanus Booster (TDap): Less than 5yrs PED Vaccines UTD: No First/Initial COVID19 Vaccinat: YES Second COVID19 Vaccination Alvaro: YES Third COVID19 Vaccination Date: YES Seasonal Allergies Seasonal Allergies: No Past Medical History Surgery/Hospitalization HX: several surgeries including 1 kidney removal, appendectomy, cammie., and power port placement, POWER PORT REMOVAL, HYSTERECTOMY Surgeries: Yes (hernia repair x2, knee scopes, port placement) Adenoidectomy, Appendectomy, Gallbladder, Hysterectomy, Nephrectomy, Orthopedic, Tonsillectomy Respiratory: Yes Asthma Currently Using CPAP: No Currently Using BIPAP: No Cardiac: Yes Hypertension Neurological: Yes Headaches /Migraines Reproductive Disorders: Yes (HX ENDOMETRIOSIS ) 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: 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 Sexually Transmitted Disease: No HIV/AIDS: No Genitourinary: Yes (S/P LEFT NEPHRECTOMY) UTI-Chronic Gastrointestinal: Yes (CHRONIC ABD PAIN/N/V./D) Abdominal Hernia, Gastroesophageal Reflux, Liver Disease/Jaundice, Obstructive Bowel, Pancreatitis, Chronic Diarrhea, Polyps Musculoskeletal: Yes (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) Chronic Back Pain Endocrine: Yes (OBESITY) Diabetes, Non-Insulin dep HEENT: No Loss of Vision: Denies Hearing Impairment: Denies Cancer: Yes Kidney Did You Recieve Any Treatments: Yes What Type of Treatment Did You: Surgical Intervention Psychosocial: Yes Anxiety, Depression Integumentary: No Herpes Blood Disorders: No Adverse Reaction/Blood Tranf: No (N/A) Family Medical History Cardiovascular disease 19 FATHER Completed stroke 19 FATHER Diabetes mellitus 19 FATHER Hypercholesterolemia 19 FATHER 19 MOTHER Hypertension 19 FATHER 19 MOTHER Neoplasm 19 MOTHER Psychosocial problem 19 FATHER 19 MOTHER No Pertinent Family Hx, Cancer, Diabetes, Hypertension PSH: -RIGHT KNEE SCOPE X 5 -LEFT KNEE SCOPE X 2 -TONSILLECTOMY / ADENOIDECTOMY -APPENDECTOMY -CHOLECYSTECTOMY -NASAL FRACTURE REPAIR -COCCYX REMOVAL -LEFT NEPHRECTOMY FOR MALIGNANCY -LEFT MID ABDOMEN INCISIONAL HERNIA REPAIR -DRAINAGE OF ABDOMINAL WALL ABSCESS -MULTIPLE EGD'S AND COLONOSCOPIES--LAST ONE DONE HERE 10/26/19 -HYSTERECTOMY / BILATERAL SALPINGO-OOPHORECTOMY 2007 -06/23/20--RIGHT CHEST WALL/SHOULDER INJECTION FOR THORACIC OUTLET SYNDROME--DONE IN -PORT REMOVED FROM LEFT CHEST 07/24/21 FOR NON-FUNCTIONING PORT-BY DR. MARROQUIN Physical Exam Vital Signs Vital Signs - First Documented 07/30/22 22:35 Temp 36.9 Pulse 89 Resp 16 B/P (MAP) 126/79 (95) Pulse Ox 97 O2 Delivery Room Air Capillary Refill : Less Than 3 Seconds Height/Weight/BMI Height: 5'3.00" Weight: 246lbs. 0oz. [id number]; 44.00 BMI Method:Stated Progress/Results/Core Measures Results/Orders Lab Results Laboratory Tests Test 07/30/22 22:36 07/30/22 23:00 Range/Units Urine Color YELLOW Urine Clarity CLEAR Urine pH 6.5 5-9 Urine Specific Mobile 1.020 1.016-1.022 Urine Protein NEGATIVE NEGATIVE Urine Glucose (UA) NEGATIVE NEGATIVE Urine Ketones NEGATIVE NEGATIVE Urine Nitrite NEGATIVE NEGATIVE Urine Bilirubin NEGATIVE NEGATIVE Urine Urobilinogen 1.0 < = 1.0 MG/DL Urine Leukocyte Esterase 1+ H NEGATIVE Urine RBC (Auto) NEGATIVE NEGATIVE Urine RBC RARE /HPF Urine WBC 10-25 H /HPF Urine Squamous Epithelial Cells 25-50 H /HPF Urine Crystals NONE /LPF Urine Bacteria FEW H /HPF Urine Casts NONE /LPF Urine Mucus MODERATE H /LPF Urine Culture Indicated YES White Blood Count 8.6 4.3-11.0 10^3/uL Red Blood Count 4.63 3.80-5.11 10^6/uL Hemoglobin 12.0 11.5-16.0 g/dL Hematocrit 38 35-52 % Mean Corpuscular Volume 81 80-99 fL Mean Corpuscular Hemoglobin 26 25-34 pg Mean Corpuscular Hemoglobin Concent 32 32-36 g/dL Red Cell Distribution Width 13.6 10.0-14.5 % Platelet Count 139 130-400 10^3/uL Mean Platelet Volume 10.6 9.0-12.2 fL Immature Granulocyte % (Auto) 0 % Neutrophils (%) (Auto) 50 42-75 % Lymphocytes (%) (Auto) 42 12-44 % Monocytes (%) (Auto) 5 0-12 % Eosinophils (%) (Auto) 2 0-10 % Basophils (%) (Auto) 1 0-10 % Neutrophils # (Auto) 4.3 1.8-7.8 10^3/uL Lymphocytes # (Auto) 3.6 1.0-4.0 10^3/uL Monocytes # (Auto) 0.4 0.0-1.0 10^3/uL Eosinophils # (Auto) 0.2 0.0-0.3 10^3/uL Basophils # (Auto) 0.0 0.0-0.1 10^3/uL Immature Granulocyte # (Auto) 0.0 0.0-0.1 10^3/uL Percent Immature Platelet Fraction 9.2 H 0.0-7.6 % Sodium Level 143 135-145 MMOL/L Potassium Level 3.9 3.6-5.0 MMOL/L Chloride Level 108 H 98-107 MMOL/L Carbon Dioxide Level 22 21-32 MMOL/L Anion Gap 13 5-14 MMOL/L Blood Urea Nitrogen 15 7-18 MG/DL Creatinine 0.87 0.60-1.30 MG/DL Estimat Glomerular Filtration Rate 87 BUN/Creatinine Ratio 17 Glucose Level 98 70-105 MG/DL Calcium Level 9.5 8.5-10.1 MG/DL Corrected Calcium 9.3 8.5-10.1 MG/DL Total Bilirubin 0.4 0.1-1.0 MG/DL Aspartate Amino Transf (AST/SGOT) 27 5-34 U/L Alanine Aminotransferase (ALT/SGPT) 39 0-55 U/L Alkaline Phosphatase 81 40-136 U/L C-Reactive Protein High Sensitivity 0.24 0.00-0.50 MG/DL Total Protein 7.7 6.4-8.2 GM/DL Albumin 4.3 3.2-4.5 GM/DL Lipase 70 8-78 U/L My Orders Orders - IZABELA RENDON MD Cbc With Automated Diff (07/30/22 22:30) Comprehensive Metabolic Panel (07/30/22 22:30) Hs C Reactive Protein (07/30/22 22:30) Lipase (07/30/22 22:30) Ua Culture If Indicated (07/30/22 22:30) Ed Iv/Invasive Line Start (07/30/22 22:30) Urine Culture (07/30/22 22:36) Lactated Ringers (Lr 1000 Ml Iv Solution (07/30/22 23:45) Promethazine Injection (Phenergan Injec (07/30/22 23:45) Abdomen, Flat & Upright/Decub (07/30/22 23:34) Medications Given in ED Current Medications Medications Dose Ordered Sig/Neal Route Start Time Stop Time Status Last Admin Dose Admin Lactated Ringer's 1,000 ml @ 0 mls/hr Q0M ONCE IV 07/30/22 23:45 07/30/22 23:47 DC 07/30/22 23:55 999 MLS/HR Promethazine HCl 25 mg ONCE ONCE IVP 07/30/22 23:45 07/30/22 23:47 DC 07/30/22 23:55 25 MG Vital Signs/I&O 07/30/22 22:35 Temp 36.9 Pulse 89 Resp 16 B/P (MAP) 126/79 (95) Pulse Ox 97 O2 Delivery Room Air Blood Pressure Mean: 95 Departure Impression Primary Impression: Nausea and vomiting Qualified Codes: R11.2 - Nausea with vomiting, unspecified Additional Impressions: Constipation Qualified Codes: K59.00 - Constipation, unspecified Generalized abdominal pain Rectal bleeding Disposition: HOME, SELF-CARE Condition: Improved Departure-Patient Inst. Decision time for Depature: 02:34 Referrals: CARMEN GIBBS MD (PCP/Family) Primary Care Physician Patient Instructions: Constipation in Adults, Gastrointestinal Bleeding, Abdominal Pain, Adult ED Add. Discharge Instructions: Adhere to a mostly clear liquid diet until you produce a good bowel movement. You may try Reglan (metoclopramide) as prescribed for nausea and vomiting. Separate doses of Phenergan and Reglan by at least 6 hours. You may use your usual stool softeners and laxatives to help you produce a bowel movement. Also consider using a glycerin suppository to help you pass the stools more easily and to help prevent further rectal bleeding with bowel movements. 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 Provided him with an update with a phone call to the office later today. Your lab work and vital signs were unremarkable in the emergency room. Return to care if you have worsening symptoms despite following these instructions. Follow-up with your primary care provider soon as possible. All discharge instructions reviewed with patient and/or family. Voiced understanding. Scripts Glycerin (Glycerin) Adult Supp.rect 1 EACH RC DAILY PRN for CONSTIPATION, #10 SUPP.RECT Prov: IZABELA RENDON MD 07/31/22 Metoclopramide HCl (Reglan) 5 Mg Tablet 5 MG PO Q6H PRN for NAUSEA/VOMITING, #20 TAB Prov: IZABELA RENDON MD 07/31/22 IZABELA RENDON MD Jul 31, 2022 02:23
[2022-07-31] MEDS ORDERED: GLYC-12 RC (02:38)
[2022-07-31] MEDS ORDERED: METO5TAB75 PO (02:38)
[2022-07-31 02:48] VITALS: BP 150/86
--- NOTE | 2022-07-31 08:15 | Diagnostic Imaging Report ---
Indication: Pain. Findings: There is an elevated fecal load in the colon but no rectal or sigmoidal impaction. No small bowel dilatation. There are clips in the gallbladder fossa as well as some sutural opacity in the left hemiabdomen and likely right lower quadrant. Impression: Elevated fecal load, correlate for mild constipation but no obstruction or distal impaction. Dictated by: Dictated on workstation # [id number]
== END 2022-07-31 02:48 | disposition home or self-care (01) ==
LOC: EDUNIT# 22:22 → ER 22:23
DX: K59.00 Constipation, unspecified (principal); R11.2 Nausea with vomiting, unspecified; K62.5 Hemorrhage of anus and rectum; E11.9 Type 2 diabetes mellitus without complications; Z68.41 Body mass index [BMI] 40.0-44.9, adult
CPT/HCPCS: 36415; 74019; 80053; 81000; 83690; 85025; 86141; 87088

== ENCOUNTER 2022-08-22 15:36 | Emergency (ER) | payer MEDICARE, MEDICAID ==
[~2022-08-22] VITALS: Ht 160 cm; Wt 111.0 kg
[~2022-08-22 15:36] MED LIST changes: +GLYC-12 RC
[2022-08-22] MEDS ORDERED: NS IV 1000 ML 1,000 ML IV STA (16:04)
[2022-08-22 16:31] LABS: BASOPHILS % (AUTO) 0 % (0-10); EOSINOPHILS # (AUTO) 0.1 10^3/uL (0.0-0.3); EOSINOPHILS % (AUTO) 1 % (0-10); HEMATOCRIT 37 % (35-52); HEMOGLOBIN 11.6 g/dL (11.5-16.0); LYMPHOCYTES # (AUTO) 3.5 10^3/uL (1.0-4.0); LYMPHOCYTES % (AUTO) 28 % (12-44); MEAN CORPUSCULAR HEMOGLOBIN 26 pg (25-34); MEAN CORPUSCULAR HGB CONC 32 g/dL (32-36); MEAN CORPUSCULAR VOLUME 83 fL (80-99); MEAN PLATELET VOLUME 9.4 fL (9.0-12.2); MONOCYTES # (AUTO) 0.6 10^3/uL (0.0-1.0); MONOCYTES % (AUTO) 5 % (0-12); NEUTROPHILS # (AUTO) 8.2 10^3/uL (1.8-7.8); NEUTROPHILS % (AUTO) 66 % (42-75); PLATELET COUNT 303 10^3/uL (130-400); WHITE BLOOD COUNT 12.5 10^3/uL (4.3-11.0)
[2022-08-22 16:38] LABS: ALBUMIN 4.1 GM/DL (3.2-4.5); POTASSIUM 3.9 MMOL/L (3.6-5.0)
[2022-08-22 16:41] LABS: TOTAL PROTEIN 7.2 GM/DL (6.4-8.2)
[2022-08-22 16:42] LABS: BILIRUBIN,TOTAL 0.2 MG/DL (0.1-1.0)
[2022-08-22 16:44] LABS: CREATININE SERUM 0.83 MG/DL (0.60-1.30)
[2022-08-22] MEDS ORDERED: PROMETHAZINE INJ 25 MG/ML (PHENERGAN) AMP IVP STA (16:47)
--- NOTE | 2022-08-22 16:47 | ED General ---
General Chief Complaint: Head/Cervical Problems Stated Complaint: HEADACHE - TIRED - NAUSEA Nursing Triage Note: pt amb to [facility] with complaints of MEJIA, N/V, and dehydration that started at 1330 today. pt took tylenol and zofran at 1330 and has had no relief. Source of Information: Patient Exam Limitations: No Limitations History of Present Illness Date Seen by Provider: Aug 22, 2022 Time Seen by Provider: 15:59 Initial Comments Here with acute exacerbation of her chronic nausea and vomiting. She has tried ondansetron at 130 and she also had Phenergan earlier. She states that she is having a difficult time with drinking and thinks that she needs a liter of fluid. She states that this usually helps. She did call her doctor but has not had any call back as she was trying to get into outpatient services to get hydra tion. She does have chronic pancreatitis. She had recent hospitalization at and has established GI care at [facility]. Denies fever or chills. She does have a mild headache. Timing/Duration: 12 Hours Severity: Moderate Associated Systoms: Nausea/Vomiting Allergies and Home Medications Allergies Coded Allergies: meperidine (Verified Allergy, Unknown, 01/24/22) penicillin G (Verified Allergy, Unknown, 01/24/22) prochlorperazine (Verified Allergy, Unknown, 01/24/22) trimethobenzamide (Unverified Allergy, Unknown, 01/24/22) vancomycin (Verified Adverse Reaction, Intermediate, severe itching, 01/24/22) fentanyl (Verified Adverse Reaction, Unknown, HALLUCINATIONS, 02/27/22) Patient Home Medication List Home Medication List Reviewed: Yes Acetaminophen (Tylenol Extra Strength) 500 Mg Tablet, 1,000 MG PO Q8H PRN for PAIN-MILD (1-4), (Reported) Entered as Reported by: EMIILO SHEPPARD on 10/26/19 0812 Albuterol Sulfate (Ventolin Hfa) 90 Mcg Hfa.aer.ad, 2 PUFF INH Q6H PRN for SHORTNESS OF BREATH, (Reported) Entered as Reported by: CASSANDRA CHOPRA on 02/15/22 1215 Albuterol Sulfate (Albuterol Sulfate) 2.5 Mg/3 Ml (0.083 %) Vial.neb, 3 ML PO Q8H PRN for SHORTNESS OF BREATH, (Reported) Entered as Reported by: CASSANDRA CHOPRA on 02/15/22 1215 Amitriptyline HCl (Amitriptyline HCl) 10 Mg Tablet, 10 MG PO HS Prescribed by: CARMEN GIBBS on 03/01/22 1124 Atorvastatin Calcium (Atorvastatin Calcium) 40 Mg Tablet, 40 MG PO HS, (Repor arvind) Entered as Reported by: CASSANDRA CHOPRA on 02/15/22 1215 Benzonatate (Benzonatate) 100 Mg Capsule, 100 MG PO TID PRN for COUGH, (Reported) Entered as Reported by: CASSANDRA CHOPRA on 02/15/22 1215 Cefdinir (Cefdinir) 300 Mg Capsule, 300 MG PO BID Prescribed by: YAN CHAPARRO on 04/21/22 0052 Cefdinir (Cefdinir) 300 Mg Capsule, 300 MG PO BID Prescribed by: YAN CHAPARRO on 05/08/22 2347 Cephalexin (Cephalexin) 500 Mg Tablet, 500 MG PO QID Prescribed by: YAN CHAPARRO on 05/22/22 0228 Cetirizine HCl (Cetirizine HCl) 10 Mg Tablet, 10 MG PO HS, (Reported) Entered as Reported by: CASSANDRA CHOPRA on 02/15/22 1215 Cyanocobalamin (Cyanocobalamin Injection) 1,000 Mcg/Ml Inj, 1,000 MCG IM MONTHLY, (Reported) Entered as Reported by: GRIFFIN ORTEGA on 07/24/21 1145 Diphenhydramine HCl (Benadryl) 25 Mg Capsule, 50 MG PO HS, (Reported) Entered as Reported by: EMILIO SHEPPARD on 10/26/19 0812 Glycerin (Glycerin) Adult Supp.rect, 1 EACH RC DAILY PRN for CONSTIPATION Prescribed by: IZABELA MAC on 07/31/22 0238 Hydrocodone/Acetaminophen (Hydrocodone-Acetamin 5-325 mg) 5 Mg-325 Mg Tablet, 1 TAB PO Q6H PRN for PAIN-MODERATE (5-7), (Reported) Entered as Reported by: CASSANDRA CHOPRA on 02/15/22 1215 Metoclopramide HCl (Reglan) 5 Mg Tablet, 5 MG PO Q6H PRN for NAUSEA/VOMITING Prescribed by: IZABELA MAC on 07/31/22 0238 Ondansetron (Ondansetron Odt) 8 Mg Tab.rapdis, 8 MG PO Q8H PRN for NAUSEA/VOMITING-1ST LINE, (Reported) Entered as Reported by: EMILIO SHEPPARD on 10/26/19 0812 Pantoprazole Sodium (Pantoprazole Sodium) 40 Mg Tablet.dr, 40 MG PO DAILY Prescribed by: CARMEN GIBBS on 03/01/22 1124 Promethazine HCl (Promethazine Tablet) 25 Mg Tablet, 25 MG PO Q6H PRN for NAUSEA/VOMITING-2ND LINE, (Reported) Entered as Reported by: LEX HOSKINS on 12/07/20 0916 Ropinirole HCl (Ropinirole HCl) 4 Mg Tablet, 4 MG PO HS, (Reported) Entered as Reported by: LEX HOSKINS on 06/28/17 1010 Sitagliptin Phos/Metformin HCl (Janumet Xr 50-1,000 mg Tablet) 50 Mg-1,000 Mg Tbmp.24hr, 2 TAB PO HS, (Reported) Entered as Reported by: LEX HOSKINS on 12/07/20 0916 Sucralfate (Sucralfate) 1 Gram Tablet, 1 GM PO ACHS Prescribed by: CARMEN GIBBS on 03/01/22 1124 Review of Systems Review of Systems Constitutional: No chills, No fever EENTM: no symptoms reported Respiratory: no symptoms reported Gastrointestinal: No abdominal pain; nausea, vomiting Genitourinary: no symptoms reported Musculoskeletal: No back pain, No muscle pain Past Unbkdyj-Bdpmrv-Kfpzhb Hx Patient Social History Tobacco Use?: No Substance use?: No Alcohol Use?: No Immunizations Up To Date Tetanus Booster (TDap): Less than 5yrs PED Vaccines UTD: No First/Initial COVID19 Vaccinat: YES Second COVID19 Vaccination Alvaro: YES Third COVID19 Vaccination Date: YES Seasonal Allergies Seasonal Allergies: No Past Medical History Surgery/Hospitalization HX: several surgeries including 1 kidney removal, appendectomy, cammie., and power port placement, POWER PORT REMOVAL, HYSTERECTOMY Surgeries: Yes (hernia repair x2, knee scopes, port placement) Adenoidectomy, Appendectomy, Gallbladder, Hysterectomy, Nephrectomy, Orthopedic, Tonsillectomy Respiratory: Yes Asthma Currently Using CPAP: No Currently Using BIPAP: No Cardiac: Yes Hypertension Neurological: Yes Headaches /Migraines Reproductive Disorders: Yes (HX ENDOMETRIOSIS ) 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: 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 Sexually Transmitted Disease: No HIV/AIDS: No Genitourinary: Yes (S/P LEFT NEPHRECTOMY) UTI-Chronic Gastrointestinal: Yes (CHRONIC ABD PAIN/N/V./D) Abdominal Hernia, Gastroesophageal Reflux, Liver Disease/Jaundice, Obstructive Bowel, Pancreatitis, Chronic Diarrhea, Polyps Musculoskeletal: Yes (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) Chronic Back Pain Endocrine: Yes (OBESITY) Diabetes, Non-Insulin dep HEENT: No Loss of Vision: Denies Hearing Impairment: Denies Cancer: Yes Kidney Did You Recieve Any Treatments: Yes What Type of Treatment Did You: Surgical Intervention Psychosocial: Yes Anxiety, Depression Integumentary: No Herpes Blood Disorders: No Adverse Reaction/Blood Tranf: No (N/A) Family Medical History Reviewed Nursing Family Hx Cardiovascular disease 19 FATHER Completed stroke 19 FATHER Diabetes mellitus 19 FATHER Hypercholesterolemia 19 FATHER 19 MOTHER Hypertension 19 FATHER 19 MOTHER Neoplasm 19 MOTHER Psychosocial problem 19 FATHER 19 MOTHER No Pertinent Family Hx, Cancer, Diabetes, Hypertension PSH: -RIGHT KNEE SCOPE X 5 -LEFT KNEE SCOPE X 2 -TONSILLECTOMY / ADENOIDECTOMY -APPENDECTOMY -CHOLECYSTECTOMY -NASAL FRACTURE REPAIR -COCCYX REMOVAL -LEFT NEPHRECTOMY FOR MALIGNANCY -LEFT MID ABDOMEN INCISIONAL HERNIA REPAIR -DRAINAGE OF ABDOMINAL WALL ABSCESS -MULTIPLE EGD'S AND COLONOSCOPIES--LAST ONE DONE HERE 10/26/19 -HYSTERECTOMY / BILATERAL SALPINGO-OOPHORECTOMY 2007 -06/23/20--RIGHT CHEST WALL/SHOULDER INJECTION FOR THORACIC OUTLET SYNDROME--DONE IN -PORT REMOVED FROM LEFT CHEST 07/24/21 FOR NON-FUNCTIONING PORT-BY DR. MARROQUIN Physical Exam Vital Signs Vital Signs - First Documented 08/22/22 15:46 Pulse 90 B/P (MAP) 119/76 (90) Pulse Ox 98 O2 Delivery Room Air Capillary Refill : Height, Weight, BMI Height: 5'3.00" Weight: 246lbs. 0oz. 111.828673sg; 43.00 BMI Method:Stated General Appearance: No Apparent Distress, WD/WN, Obese HEENT: PERRL/EOMI, Pharynx Normal Neck: Non Tender, Supple Respiratory: Lungs Clear, Normal Breath Sounds Cardiovascular: Regular Rate, Rhythm, No Murmur Gastrointestinal: Non Tender, Soft Neurologic/Psychiatric: Alert, Oriented x3 Skin: Normal Color, Warm/Dry Progress/Results/Core Measures Suspected Sepsis SIRS Temperature: Pulse: 90 Respiratory Rate: Laboratory Tests 08/22/22 16:15: White Blood Count 12.5H Blood Pressure 119 /76 Mean: 90 Laboratory Tests 08/22/22 16:15: Creatinine 0.83, Platelet Count 303, Total Bilirubin 0.2 Results/Orders Lab Results Laboratory Tests Test 08/22/22 16:15 Range/Units White Blood Count 12.5 H 4.3-11.0 10^3/uL Red Blood Count 4.42 3.80-5.11 10^6/uL Hemoglobin 11.6 11.5-16.0 g/dL Hematocrit 37 35-52 % Mean Corpuscular Volume 83 80-99 fL Mean Corpuscular Hemoglobin 26 25-34 pg Mean Corpuscular Hemoglobin Concent 32 32-36 g/dL Red Cell Distribution Width 15.1 H 10.0-14.5 % Platelet Count 303 130-400 10^3/uL Mean Platelet Volume 9.4 9.0-12.2 fL Immature Granulocyte % (Auto) 1 % Neutrophils (%) (Auto) 66 42-75 % Lymphocytes (%) (Auto) 28 12-44 % Monocytes (%) (Auto) 5 0-12 % Eosinophils (%) (Auto) 1 0-10 % Basophils (%) (Auto) 0 0-10 % Neutrophils # (Auto) 8.2 H 1.8-7.8 10^3/uL Lymphocytes # (Auto) 3.5 1.0-4.0 10^3/uL Monocytes # (Auto) 0.6 0.0-1.0 10^3/uL Eosinophils # (Auto) 0.1 0.0-0.3 10^3/uL Basophils # (Auto) 0.0 0.0-0.1 10^3/uL Immature Granulocyte # (Auto) 0.1 0.0-0.1 10^3/uL Sodium Level 142 135-145 MMOL/L Potassium Level 3.9 3.6-5.0 MMOL/L Chloride Level 107 98-107 MMOL/L Carbon Dioxide Level 26 21-32 MMOL/L Anion Gap 9 5-14 MMOL/L Blood Urea Nitrogen 20 H 7-18 MG/DL Creatinine 0.83 0.60-1.30 MG/DL Estimat Glomerular Filtration Rate 92 BUN/Creatinine Ratio 24 Glucose Level 119 H 70-105 MG/DL Calcium Level 9.0 8.5-10.1 MG/DL Corrected Calcium 8.9 8.5-10.1 MG/DL Total Bilirubin 0.2 0.1-1.0 MG/DL Aspartate Amino Transf (AST/SGOT) 17 5-34 U/L Alanine Aminotransferase (ALT/SGPT) 30 0-55 U/L Alkaline Phosphatase 82 40-136 U/L C-Reactive Protein High Sensitivity 0.35 0.00-0.50 MG/DL Total Protein 7.2 6.4-8.2 GM/DL Albumin 4.1 3.2-4.5 GM/DL Lipase 68 8-78 U/L My Orders Orders - YUKI MARCH MD Cbc With Automated Diff (08/22/22 16:04) Comprehensive Metabolic Panel (08/22/22 16:04) Hs C Reactive Protein (08/22/22 16:04) Lipase (08/22/22 16:04) Ns Iv 1000 Ml (Sodium Chloride 0.9%) (08/22/22 16:04) Ed Iv/Invasive Line Start (08/22/22 16:04) Promethazine Injection (Phenergan Injec (08/22/22 16:47) Vital Signs/I&O 08/22/22 08/22/22 15:46 18:10 Pulse 90 B/P (MAP) 119/76 (90) 120/73 Pulse Ox 98 O2 Delivery Room Air Capillary Refill : Blood Pressure Mean: 90 Progress Note : Progress Note Seen and evaluated. IV, labs, normal saline 1 L bolus ordered. Labs include CBC, CMP and lipase. We will consider antiemetic if not improving. IV placement me via ultrasound guidance x1 stick to the right bicep with 20-gauge Angiocath. Differential includes electrolyte abnormality, dehydration, pancreatitis, chronic nausea and vomiting. 1758: Patient did receive Phenergan 25 mg IV and completed 1 L normal saline. Labs reviewed and CBC and chemistry are nonconcerning. Lipase is normal. Overall she is feeling better. Discharged home with return precautions. Patient verbalized understanding instructions and agreement with plan. Departure Impression Primary Impression: Nausea and vomiting Qualified Codes: R11.2 - Nausea with vomiting, unspecified Additional Impression: Dehydration Disposition: 01 HOME, SELF-CARE Condition: Improved Departure-Patient Inst. Decision time for Depature: 17:59 Referrals: CARMEN GIBBS MD (PCP/Family) Primary Care Physician Patient Instructions: Nausea and Vomiting, Adult (DC), Dehydration, Adult (DC) Add. Discharge Instructions: All discharge instructions reviewed with patient and/or family. Voiced understanding. Try to stay hydrated by taking small sips frequently. Follow-up with your GI doctor in [place] for recheck and further evaluation. You may also follow- up with your primary care doctor for recheck and further evaluation as needed. Return for worse pain, persistent nausea and vomiting, weakness, fever, breathing problems or other concerns as needed. YUKI MARCH MD Aug 22, 2022 16:47
[2022-08-22 18:10] VITALS: BP 120/73
== END 2022-08-22 18:10 | disposition home or self-care (01) ==
LOC: EDUNIT# 15:36 → ER 15:37
DX: R11.2 Nausea with vomiting, unspecified (principal); E86.0 Dehydration; E66.9 Obesity, unspecified; Z68.41 Body mass index [BMI] 40.0-44.9, adult
CPT/HCPCS: 36415; 80053; 83690; 85025; 86141; 99281

== ENCOUNTER 2022-08-29 20:39 | Outpatient (CLI) | payer MEDICARE, MEDICAID | END 2022-08-30 06:00 | disposition home or self-care (01) | LOC: SLEEP 20:39 | PROVIDERS: ATTEND Otolaryngology Otolaryngology/Facial Plastic Surgery | DX: G47.33 Obstructive sleep apnea (adult) (pediatric) (principal) | CPT/HCPCS: 95811 ==

== ENCOUNTER 2022-08-31 12:15 | Emergency (ER) | payer MEDICARE, MEDICAID ==
[~2022-08-31] VITALS: Ht 160 cm; Wt 111.0 kg
[2022-08-31] MEDS ORDERED: LACTATED RINGERS 1,000 ML IV ONE (12:30)
[2022-08-31] MEDS ORDERED: morphine INJ 10 MG/ML 1ML (SYR OR VIAL) IVP STA (12:45)
[2022-08-31 12:48] LABS: BASOPHILS % (AUTO) 0 % (0-10); EOSINOPHILS # (AUTO) 0.2 10^3/uL (0.0-0.3); EOSINOPHILS % (AUTO) 2 % (0-10); HEMATOCRIT 38 % (35-52); HEMOGLOBIN 11.8 g/dL (11.5-16.0); LYMPHOCYTES # (AUTO) 3.1 10^3/uL (1.0-4.0); LYMPHOCYTES % (AUTO) 26 % (12-44); MEAN CORPUSCULAR HEMOGLOBIN 26 pg (25-34); MEAN CORPUSCULAR HGB CONC 31 g/dL (32-36); MEAN CORPUSCULAR VOLUME 83 fL (80-99); MEAN PLATELET VOLUME 9.1 fL (9.0-12.2); MONOCYTES # (AUTO) 0.5 10^3/uL (0.0-1.0); MONOCYTES % (AUTO) 4 % (0-12); NEUTROPHILS # (AUTO) 8.1 10^3/uL (1.8-7.8); NEUTROPHILS % (AUTO) 68 % (42-75); PLATELET COUNT 295 10^3/uL (130-400)
--- NOTE | 2022-08-31 12:55 | ED Abdominal Pain ---
General Chief Complaint: Abdominal/GI Problems Stated Complaint: ABD PAIN | HERNIA MESH PRESENT Nursing Triage Note: pt presents to ed via pov from her providers office for complaints of llq pain that started last night. pt states she had a similar episode last month that she saw dr marroquin for and was referred to a pain specialist. Source of Information: Patient Exam Limitations: No Limitations History of Present Illness Date Seen by Provider: Aug 31, 2022 Time Seen by Provider: 12:33 Initial Comments 37-year-old female presents to the ED with complaints of left lower quadrant abdominal pain starting last night. States that she was being seen at her primary care provider, and they sent her over here. Reports pain is worse when touching the area, or when her pants are pressing against the area. Reports she was nauseous this morning, but took a Zofran at 9 AM, and her nausea has improved. She has a long history of abdominal issues. She has had 2 hernia repairs with mesh placement in left mid abdominal area. She has had her gallbladder and appendix removed, as well as a kidney removed due to kidney cancer, and a bowel resection. She has also had a total hysterectomy, and multiple scopes and EGDs. Other past medical history includes cyclic vomiting syndrome, migraines, chronic pancreatitis, diabetes, and depression and anxiety. Denies fevers, chest pain, shortness of air, vomiting, diarrhea. Reports she last had a normal, soft bowel movement this morning. Denies blood in stool. Allergies and Home Medications Allergies Coded Allergies: meperidine (Verified Allergy, Unknown, 01/24/22) penicillin G (Verified Allergy, Unknown, 01/24/22) prochlorperazine (Verified Allergy, Unknown, 01/24/22) trimethobenzamide (Unverified Allergy, Unknown, 01/24/22) vancomycin (Verified Adverse Reaction, Intermediate, severe itching, 01/24/22) fentanyl (Verified Adverse Reaction, Unknown, HALLUCINATIONS, 02/27/22) Patient Home Medication List Home Medication List Reviewed: Yes Acetaminophen (Tylenol Extra Strength) 500 Mg Tablet, 1,000 MG PO Q8H PRN for PAIN-MILD (1-4), (Reported) Entered as Reported by: EMILIO SHEPPARD on 10/26/19 0812 Albuterol Sulfate (Ventolin Hfa) 90 Mcg Hfa.aer.ad, 2 PUFF INH Q6H PRN for SHORTNESS OF BREATH, (Reported) Entered as Reported by: CASSANDRA CHOPRA on 02/15/22 1215 Albuterol Sulfate (Albuterol Sulfate) 2.5 Mg/3 Ml (0.083 %) Vial.neb, 3 ML PO Q8H PRN for SHORTNESS OF BREATH, (Reported) Entered as Reported by: CASSANDRA CHOPRA on 02/15/22 1215 Amitriptyline HCl (Amitriptyline HCl) 10 Mg Tablet, 10 MG PO HS Prescribed by: CARMEN GIBBS on 03/01/22 1124 Atorvastatin Calcium (Atorvastatin Calcium) 40 Mg Tablet, 40 MG PO HS, (Reported) Entered as Reported by: CASSANDRA CHOPRA on 02/15/22 1215 Benzonatate (Benzonatate) 100 Mg Capsule, 100 MG PO TID PRN for COUGH, (Reported) Entered as Reported by: CASSANDRA CHOPRA on 02/15/22 1215 Cefdinir (Cefdinir) 300 Mg Capsule, 300 MG PO BID Prescribed by: YAN CHAPARRO on 04/21/22 0052 Cefdinir (Cefdinir) 300 Mg Capsule, 300 MG PO BID Prescribed by: YAN CHAPARRO on 05/08/22 2347 Cephalexin (Cephalexin) 500 Mg Tablet, 500 MG PO QID Prescribed by: YAN CHAPARRO on 05/22/22 0228 Cetirizine HCl (Cetirizine HCl) 10 Mg Tablet, 10 MG PO HS, (Reported) Entered as Reported by: CASSANDRA CHOPRA on 02/15/22 1215 Cyanocobalamin (Cyanocobalamin Injection) 1,000 Mcg/Ml Inj, 1,000 MCG IM MONTHLY, (Reported) Entered as Reported by: GRIFFIN ORTEGA on 07/24/21 1145 Diphenhydramine HCl (Benadryl) 25 Mg Capsule, 50 MG PO HS, (Reported) Entered as Reported by: EMILIO SHEPPARD on 10/26/19 0812 Glycerin (Glycerin) Adult Supp.rect, 1 EACH RC DAILY PRN for CONSTIPATION Prescribed by: IZABELA MAC on 07/31/22 0238 Hydrocodone/Acetaminophen (Hydrocodone-Acetamin 5-325 mg) 5 Mg-325 Mg Tablet, 1 TAB PO Q6H PRN for PAIN-MODERATE (5-7), (Reported) Entered as Reported by: CASSANDRA CHOPRA on 02/15/22 1215 Metoclopramide HCl (Reglan) 5 Mg Tablet, 5 MG PO Q6H PRN for NAUSEA/VOMITING Prescribed by: IZABELA MAC on 07/31/22 0238 Ondansetron (Ondansetron Odt) 8 Mg Tab.rapdis, 8 MG PO Q8H PRN for NAUSEA/VOMITING-1ST LINE, (Reported) Entered as Reported by: EMILIO SHEPPARD on 10/26/19 0812 Pantoprazole Sodium (Pantoprazole Sodium) 40 Mg Tablet.dr, 40 MG PO DAILY Prescribed by: CARMEN GIBBS on 03/01/22 1124 Promethazine HCl (Promethazine Tablet) 25 Mg Tablet, 25 MG PO Q6H PRN for NAUSEA/VOMITING-2ND LINE, (Reported) Entered as Reported by: LEX HOSKINS on 12/07/20 0916 Ropinirole HCl (Ropinirole HCl) 4 Mg Tablet, 4 MG PO HS, (Reported) Entered as Reported by: LEX HOSKINS on 06/28/17 1010 Sitagliptin Phos/Metformin HCl (Janumet Xr 50-1,000 mg Tablet) 50 Mg-1,000 Mg Tbmp.24hr, 2 TAB PO HS, (Reported) Entered as Reported by: LEX HOSKINS on 12/07/20 0916 Sucralfate (Sucralfate) 1 Gram Tablet, 1 GM PO ACHS Prescribed by: CARMEN GIBBS on 03/01/22 1124 Review of Systems Review of Systems Constitutional: see HPI Past Dtoihsx-Expbli-Rupbje Hx Patient Social History Tobacco Use?: No Substance use?: No Alcohol Use?: No Pt feels they are or have been: No Immunizations Up To Date Tetanus Booster (TDap): Less than 5yrs PED Vaccines UTD: No First/Initial COVID19 Vaccinat: YES Second COVID19 Vaccination Alvaro: YES Third COVID19 Vaccination Date: YES Seasonal Allergies Seasonal Allergies: No Past Medical History Surgery/Hospitalization HX: several surgeries including 1 kidney removal, appendectomy, cammie., and power port placement, POWER PORT REMOVAL, HYSTERECTOMY pmh: pancreatitis, high chol, kidney ca, migraines, depression, sleep apnea, prediabetic Surgeries: Yes (hernia repair x2, knee scopes, port placement) Adenoidectomy, Appendectomy, Gallbladder, Hysterectomy, Nephrectomy, Orthopedic, Tonsillectomy Respiratory: Yes Asthma Currently Using CPAP: No Currently Using BIPAP: No Cardiac: Yes Hypertension Neurological: Yes Headaches /Migraines Reproductive Disorders: Yes (HX ENDOMETRIOSIS ) 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: 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 History: Hysterectomy Sexually Transmitted Disease: No HIV/AIDS: No Genitourinary: Yes (S/P LEFT NEPHRECTOMY) UTI-Chronic Gastrointestinal: Yes (CHRONIC ABD PAIN/N/V./D) Abdominal Hernia, Gastroesophageal Reflux, Liver Disease/Jaundice, Obstructive Bowel, Pancreatitis, Chronic Diarrhea, Polyps Musculoskeletal: Yes (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) Chronic Back Pain Endocrine: Yes (OBESITY) Diabetes, Non-Insulin dep HEENT: No Loss of Vision: Denies Hearing Impairment: Denies Cancer: Yes Kidney Did You Recieve Any Treatments: Yes What Type of Treatment Did You: Surgical Intervention Psychosocial: Yes Anxiety, Depression Integumentary: No Herpes Blood Disorders: No Adverse Reaction/Blood Tranf: No (N/A) Family Medical History Cardiovascular disease 19 FATHER Completed stroke 19 FATHER Diabetes mellitus 19 FATHER Hypercholesterolemia 19 FATHER 19 MOTHER Hypertension 19 FATHER 19 MOTHER Neoplasm 19 MOTHER Psychosocial problem 19 FATHER 19 MOTHER No Pertinent Family Hx, Cancer, Diabetes, Hypertension PSH: -RIGHT KNEE SCOPE X 5 -LEFT KNEE SCOPE X 2 -TONSILLECTOMY / ADENOIDECTOMY -APPENDECTOMY -CHOLECYSTECTOMY -NASAL FRACTURE REPAIR -COCCYX REMOVAL -LEFT NEPHRECTOMY FOR MALIGNANCY -LEFT MID ABDOMEN INCISIONAL HERNIA REPAIR -DRAINAGE OF ABDOMINAL WALL ABSCESS -MULTIPLE EGD'S AND COLONOSCOPIES-- LAST ONE HERE 10/2019. HAD ONE 07/2022 AT -HYSTERECTOMY / BILATERAL SALPINGO-OOPHORECTOMY 2007 -06/23/20--RIGHT CHEST WALL/SHOULDER INJECTION FOR THORACIC OUTLET SYNDROME--DONE IN -PORT REMOVED FROM LEFT CHEST 07/24/21 FOR NON-FUNCTIONING PORT-BY DR. MARROQUIN Physical Exam Vital Signs Vital Signs - First Documented 08/31/22 12:30 Temp 36.2 Pulse 91 Resp 16 B/P (MAP) 128/102 (111) Pulse Ox 98 Capillary Refill : Less Than 3 Seconds Height/Weight/BMI Height: 5'3.00" Weight: 246lbs. 0oz. 111.654522qi; 43.00 BMI Method:Stated General Appearance: WD/WN, no apparent distress Neck: supple, normal inspection Respiratory: lungs clear, normal breath sounds, no respiratory distress, no accessory muscle use Cardiovascular: regular rate, rhythm, no edema, no gallop, no JVD, no murmur Gastrointestinal: soft, abnormal bowel sounds (Hypoactive all 4 quadrants), guarding (Left lower quadrant), tenderness (Left lower quadrant, epigastric area (patient states this area is always tender)) Extremities: normal range of motion, normal inspection Neurologic/Psychiatric: alert, normal mood/affect, oriented x 3 Skin: normal color, warm/dry Progress/Results/Core Measures Results/Orders Lab Results Laboratory Tests Test 08/31/22 12:41 08/31/22 14:36 Range/Units White Blood Count 12.0 H 4.3-11.0 10^3/uL Red Blood Count 4.63 3.80-5.11 10^6/uL Hemoglobin 11.8 11.5-16.0 g/dL Hematocrit 38 35-52 % Mean Corpuscular Volume 83 80-99 fL Mean Corpuscular Hemoglobin 26 25-34 pg Mean Corpuscular Hemoglobin Concent 31 L 32-36 g/dL Red Cell Distribution Width 15.0 H 10.0-14.5 % Platelet Count 295 130-400 10^3/uL Mean Platelet Volume 9.1 9.0-12.2 fL Immature Granulocyte % (Auto) 0 % Neutrophils (%) (Auto) 68 42-75 % Lymphocytes (%) (Auto) 26 12-44 % Monocytes (%) (Auto) 4 0-12 % Eosinophils (%) (Auto) 2 0-10 % Basophils (%) (Auto) 0 0-10 % Neutrophils # (Auto) 8.1 H 1.8-7.8 10^3/uL Lymphocytes # (Auto) 3.1 1.0-4.0 10^3/uL Monocytes # (Auto) 0.5 0.0-1.0 10^3/uL Eosinophils # (Auto) 0.2 0.0-0.3 10^3/uL Basophils # (Auto) 0.0 0.0-0.1 10^3/uL Immature Granulocyte # (Auto) 0.1 0.0-0.1 10^3/uL Sodium Level 140 135-145 MMOL/L Potassium Level 4.1 3.6-5.0 MMOL/L Chloride Level 104 98-107 MMOL/L Carbon Dioxide Level 22 21-32 MMOL/L Anion Gap 14 5-14 MMOL/L Blood Urea Nitrogen 19 H 7-18 MG/DL Creatinine 0.82 0.60-1.30 MG/DL Estimat Glomerular Filtration Rate 94 BUN/Creatinine Ratio 23 Glucose Level 123 H 70-105 MG/DL Calcium Level 9.4 8.5-10.1 MG/DL Corrected Calcium 9.3 8.5-10.1 MG/DL Total Bilirubin 0.4 0.1-1.0 MG/DL Aspartate Amino Transf (AST/SGOT) 24 5-34 U/L Alanine Aminotransferase (ALT/SGPT) 32 0-55 U/L Alkaline Phosphatase 89 40-136 U/L Total Protein 7.5 6.4-8.2 GM/DL Albumin 4.1 3.2-4.5 GM/DL Lipase 84 H 8-78 U/L Urine Color YELLOW Urine Clarity CLEAR Urine pH 6.0 5-9 Urine Specific [place] 1.010 L 1.016-1.022 Urine Protein NEGATIVE NEGATIVE Urine Glucose (UA) NEGATIVE NEGATIVE Urine Ketones NEGATIVE NEGATIVE Urine Nitrite NEGATIVE NEGATIVE Urine Bilirubin NEGATIVE NEGATIVE Urine Urobilinogen 0.2 < = 1.0 MG/DL Urine Leukocyte Esterase 1+ H NEGATIVE Urine RBC (Auto) NEGATIVE NEGATIVE Urine RBC NONE /HPF Urine WBC 2-5 /HPF Urine Squamous Epithelial Cells 2-5 /HPF Urine Crystals PRESENT H /LPF Urine Amorphous Sediment FEW HAMMAD URATES H /LPF Urine Bacteria FEW H /HPF Urine Casts PRESENT /LPF Urine Hyaline Casts RARE /LPF Urine Mucus NEGATIVE /LPF Urine Culture Indicated YES Urine Test NEGATIVE NEGATIVE Micro Results Microbiology 08/31/22 Urine Culture - Final, Complete Gram Pos Mixed Bacterial Melina My Orders Orders - LIN HOLLEY [employer] SCIENCE RESEARCH ASSISTANT Ua Culture If Indicated (08/31/22 12:18) Hcg,Qualitative Urine (08/31/22 12:18) Comprehensive Metabolic Panel (08/31/22 12:28) Lipase (08/31/22 12:28) Cbc With Automated Diff (08/31/22 12:28) Ed Iv/Invasive Line Start (08/31/22 12:28) Lactated Ringers (Lr 1000 Ml Iv Solution (08/31/22 12:30) Morphine Injection (Morphine Injection (08/31/22 12:45) Ct Abdomen/Pelvis W (08/31/22 12:46) Iohexol Injection (Omnipaque 350 Mg/Ml 1 (08/31/22 13:00) Received Contrast (Hold Metformin- Contr (08/31/22 13:00) Ns (Ivpb) (Sodium Chloride 0.9% Ivpb Bag (08/31/22 13:00) Ondansetron Injection (Zofran Injectio (08/31/22 13:30) Hydromorphone Injection (Dilaudid Inject (08/31/22 14:15) Urine Culture (08/31/22 14:36) Medications Given in ED Vital Signs/I&O 08/31/22 08/31/22 12:30 15:21 Temp 36.2 Pulse 91 76 Resp 16 18 B/P (MAP) 128/102 (111) 117/74 Pulse Ox 98 98 Blood Pressure Mean: 111 Progress Progress Note : Progress Note Patient seen and evaluated, resting comfortably in bed, no acute distress. Based on exam and symptoms, concern for diverticulitis, or incarcerated hernia. Work-up initiated including CBC, CMP, lipase, CT abdomen pelvis. IV fluids and pain medicine ordered. Labs reviewed by me. CBC shows slightly elevated WBC 12.0. CMP shows slightly elevated BUN 19 and glucose 123. UA shows 1+ leukocytes, few bacteria, 2-5 WBCs, and 2-5 squamous epithelial cells. Patient denies any UTI symptoms, possibly a contaminated specimen, will wait for culture results before treating. CT report reviewed. Small umbilical hernia which contains small bowel, possible left-sided spigelian hernia. No obstruction. Diverticulosis without diverticulitis. Hepatosplenomegaly with stenosis. Results discussed with patient. Patient states she was already aware of umbilical hernia, denies pain in this location. Discharge instructions and return precautions provided. Diagnostic Imaging Diagonstic Imaging: CT Plain Films/CT/US/NM/MRI: abdomen, pelvis Comments [facility] [place], [place] NAME: JAYLYN DELGADO [facility] REC#: [id number] PT STATUS: DEP ER : 1985 PHYSICIAN: LIN HOLLEY APRN ADMIT DATE: 08/31/22/ER Signed Date of Exam:08/31/22 CT ABDOMEN/PELVIS W PROCEDURE: CT abdomen and pelvis with contrast. TECHNIQUE: Multiple contiguous axial images were obtained through the abdomen and pelvis after administration of intravenous contrast. Auto Exposure Controls were utilized during the CT exam to meet ALARA standards for radiation dose reduction. All CT scans use one or more of the following dose optimizing techniques: automated exposure control, MA and/or KvP adjustment based on patient size and exam type or iterative reconstruction. INDICATION: 37-year-old female, left lower quadrant pain starting last night. CORRELATION STUDY: 06/20/2022 FINDINGS: LOWER THORAX: 16 mm, somewhat sessile nodule along the diaphragm left lung base, stable. No basilar infiltrate. LIVER: Enlarged 22 cm with mild steatosis. No focal hepatic lesion. GALLBLADDER: Cholecystectomy. Probable dropped clip adjacent the right hepatic lobe. SPLEEN: Mildly enlarged 13.6 cm. Several splenules noted anteriorly. PANCREAS: Unremarkable. ADRENAL GLANDS: Unremarkable. KIDNEYS: Solitary right kidney with normal enhancement. No calcification or obstruction. A left kidney is not visualized may been surgically removed. Left renal fossa unremarkable. ABDOMINAL AORTA: Unremarkable, nonaneurysmal. GASTROINTESTINAL TRACT: Small stool retained gastric contents in the stomach. No small bowel obstruction. Mild stool within the colon. Prior appendectomy. Mild colonic diverticulosis without diverticulitis. Findings are positive for a very small, tight retro-umbilical hernia defect which now contains a knuckle of small bowel. No definitive inflammation or obstruction. Additionally, there is irregularity with what appears to be occlusive bulge-like deformity of a left spigelian hernia type. URINARY BLADDER: Unremarkable. REPRODUCTIVE: Hysterectomy. OSSEOUS STRUCTURES: No acute abnormality. OTHER: None. IMPRESSION: 1. Small, tight retro-umbilical hernia which now contains a loop of small bowel. Definitive obstruction or inflammation does not appear to be suggested at this time. However, Covid definitely predispose to potential obstruction. 2. Slight contour deformity with a bulge or early left-sided spigelian type hernia. No current obstruction or inflammation in this area. However, could potentially predispose to symptoms. 3. Colonic diverticulosis without diverticulitis. Post appendectomy. 4. Hepatosplenomegaly with steatosis. Dictated by: Dictated on workstation # [id number] Dict: 08/31/22 1330 Trans: 08/31/22 1623 [id number] Interpreted by: LEVY FOLEY DO Electronically signed by: LEVY FOLEY DO 08/31/22 1623 Departure Impression Primary Impression: Abdominal pain Disposition: HOME, SELF-CARE Condition: Stable Departure-Patient Inst. Decision time for Depature: 15:12 Referrals: CARMEN GIBBS MD (PCP/Family) Primary Care Physician Patient Instructions: Abdominal Hernia (DC) Add. Discharge Instructions: Call Dr. Marroquin's office this afternoon or Saturday to schedule follow-up appointment. Take your pain medicine occasion as prescribed. Return for uncontrollable pain, recurrent vomiting, fever, inability to have a bowel movement, or any other new, concerning, or worsening symptoms. All discharge instructions reviewed with patient and/or family. Voiced understanding. LIN HOLLEY APRN Aug 31, 2022 12:55
[2022-08-31 12:59] LABS: ALBUMIN 4.1 GM/DL (3.2-4.5); POTASSIUM 4.1 MMOL/L (3.6-5.0)
[2022-08-31 13:00] LABS: CALCIUM 9.4 MG/DL (8.5-10.1)
[2022-08-31] MEDS ORDERED: NS 100 ML (IVPB) BAG IV ONE (13:00)
[2022-08-31] MEDS ORDERED: HOLD METFORMIN - RECEIVED CONTRAST 20 ML VIAL IV SCH (13:00)
[2022-08-31] MEDS ORDERED: IOHEXOL 350 MG/ML 100 ML (OMNIPAQUE 350) VIAL IV ONE (13:00)
[2022-08-31 13:01] LABS: TOTAL PROTEIN 7.5 GM/DL (6.4-8.2)
[2022-08-31 13:03] LABS: BILIRUBIN,TOTAL 0.4 MG/DL (0.1-1.0)
[2022-08-31 13:05] LABS: CREATININE SERUM 0.82 MG/DL (0.60-1.30)
[2022-08-31] MEDS ORDERED: ONDANSETRON 4 MG/2 ML (SDV) Z0FRAN IVP ONE (13:30)
--- NOTE | 2022-08-31 14:05 | Diagnostic Imaging Report ---
PROCEDURE: CT abdomen and pelvis with contrast. TECHNIQUE: Multiple contiguous axial images were obtained through the abdomen and pelvis after administration of intravenous contrast. Auto Exposure Controls were utilized during the CT exam to meet ALARA standards for radiation dose reduction. All CT scans use one or more of the following dose optimizing techniques: automated exposure control, MA and/or KvP adjustment based on patient size and exam type or iterative reconstruction. INDICATION: 37-year-old female, left lower quadrant pain starting last night. CORRELATION STUDY: 06/20/2022 FINDINGS: LOWER THORAX: 16 mm, somewhat sessile nodule along the diaphragm left lung base, stable. No basilar infiltrate. LIVER: Enlarged 22 cm with mild steatosis. No focal hepatic lesion. GALLBLADDER: Cholecystectomy. Probable dropped clip adjacent the right hepatic lobe. SPLEEN: Mildly enlarged 13.6 cm. Several splenules noted anteriorly. PANCREAS: Unremarkable. ADRENAL GLANDS: Unremarkable. KIDNEYS: Solitary right kidney with normal enhancement. No calcification or obstruction. A left kidney is not visualized may been surgically removed. Left renal fossa unremarkable. ABDOMINAL AORTA: Unremarkable, nonaneurysmal. GASTROINTESTINAL TRACT: Small stool retained gastric contents in the stomach. No small bowel obstruction. Mild stool within the colon. Prior appendectomy. Mild colonic diverticulosis without diverticulitis. Findings are positive for a very small, tight retro-umbilical hernia defect which now contains a knuckle of small bowel. No definitive inflammation or obstruction. Additionally, there is irregularity with what appears to be occlusive bulge-like deformity of a left spigelian hernia type. URINARY BLADDER: Unremarkable. REPRODUCTIVE: Hysterectomy. OSSEOUS STRUCTURES: No acute abnormality. OTHER: None. IMPRESSION: 1. Small, tight retro-umbilical hernia which now contains a loop of small bowel. Definitive obstruction or inflammation does not appear to be suggested at this time. However, Covid definitely predispose to potential obstruction. 2. Slight contour deformity with a bulge or early left-sided spigelian type hernia. No current obstruction or inflammation in this area. However, could potentially predispose to symptoms. 3. Colonic diverticulosis without diverticulitis. Post appendectomy. 4. Hepatosplenomegaly with steatosis. Dictated by: Dictated on workstation # [id number]
[2022-08-31] MEDS ORDERED: HYDROmorphone 2 MG/ML VIAL (DILAUDID) IV ONE (14:15)
[2022-08-31 14:41] LABS: BILIRUBIN,URINE NEGATIVE (NEGATIVE); CLARITY,URINE CLEAR; COLOR,URINE YELLOW; GLUCOSE, URINE (UA) NEGATIVE (NEGATIVE); KETONES,URINE NEGATIVE (NEGATIVE); LEUKOCYTE ESTERASE ,URINE 1+ (NEGATIVE); NITRITE,URINE NEGATIVE (NEGATIVE); PROTEIN,URINE NEGATIVE (NEGATIVE)
[2022-08-31 14:50] LABS: AMORPHOUS SEDIMENT,UR FEW AMOR URATES /LPF; BACTERIA,URINE FEW /HPF; HYALINE CASTS, URINE RARE /LPF
[2022-08-31 15:21] VITALS: BP 117/74
== END 2022-08-31 15:20 | disposition home or self-care (01) ==
LOC: EDUNIT# 12:15 → ER 12:17
DX: K42.9 Umbilical hernia without obstruction or gangrene (principal); K57.30 Diverticulosis of large intestine without perforation or abscess without bleeding; D72.829 Elevated white blood cell count, unspecified; R79.89 Other specified abnormal findings of blood chemistry; R16.2 Hepatomegaly with splenomegaly, not elsewhere classified; E66.9 Obesity, unspecified; Z68.41 Body mass index [BMI] 40.0-44.9, adult; Z90.49 Acquired absence of other specified parts of digestive tract; Z79.899 Other long term (current) drug therapy
CPT/HCPCS: 36415; 74177; 80053; 81000; 83690; 84703; 85025; 87088

== ENCOUNTER 2022-09-26 10:43 | Outpatient (RCR) | payer MEDICARE, MEDICAID ==
[2022-09-26 11:16] LABS: BASOPHILS % (AUTO) 0 % (0-10); EOSINOPHILS # (AUTO) 0.1 10^3/uL (0.0-0.3); EOSINOPHILS % (AUTO) 2 % (0-10); HEMATOCRIT 38 % (35-52); HEMOGLOBIN 11.9 g/dL (11.5-16.0); LYMPHOCYTES # (AUTO) 2.5 10^3/uL (1.0-4.0); LYMPHOCYTES % (AUTO) 28 % (12-44); MEAN CORPUSCULAR HEMOGLOBIN 26 pg (25-34); MEAN CORPUSCULAR HGB CONC 32 g/dL (32-36); MEAN CORPUSCULAR VOLUME 83 fL (80-99); MEAN PLATELET VOLUME 9.4 fL (9.0-12.2); MONOCYTES # (AUTO) 0.4 10^3/uL (0.0-1.0); MONOCYTES % (AUTO) 5 % (0-12); NEUTROPHILS # (AUTO) 5.7 10^3/uL (1.8-7.8); NEUTROPHILS % (AUTO) 65 % (42-75); PLATELET COUNT 259 10^3/uL (130-400); WHITE BLOOD COUNT 8.9 10^3/uL (4.3-11.0)
[2022-09-26 11:41] LABS: ALBUMIN 4.1 GM/DL (3.2-4.5); BILIRUBIN,TOTAL 0.4 MG/DL (0.1-1.0); CALCIUM 9.4 MG/DL (8.5-10.1); CREATININE SERUM 0.8 MG/DL (0.60-1.30); POTASSIUM 3.9 MMOL/L (3.6-5.0); TOTAL PROTEIN 7.3 GM/DL (6.4-8.2)
[2022-09-27] MEDS ORDERED: CEPH500T PO (17:30)
== END 2022-10-14 | disposition home or self-care (01) ==
LOC: ONC 10:43
PROVIDERS: ATTEND Internal Medicine Hematology & Oncology
DX: C64.2 Malignant neoplasm of left kidney, except renal pelvis (principal); E66.01 Morbid (severe) obesity due to excess calories; K76.0 Fatty (change of) liver, not elsewhere classified; E78.5 Hyperlipidemia, unspecified; R91.1 Solitary pulmonary nodule; K46.9 Unspecified abdominal hernia without obstruction or gangrene; I10 Essential (primary) hypertension; J45.909 Unspecified asthma, uncomplicated; K86.1 Other chronic pancreatitis; Z98.890 Other specified postprocedural states
CPT/HCPCS: 36415; 80053; 85025

== ENCOUNTER 2022-09-27 14:05 | Emergency (ER) | payer MEDICARE, MEDICAID ==
[~2022-09-27] VITALS: Ht 160 cm; Wt 122.0 kg
[2022-09-27] MEDS ORDERED: ONDANSETRON 4 MG/2 ML (SDV) Z0FRAN IVP ONE (15:00)
[2022-09-27] MEDS ORDERED: NS IV 1000 ML 1,000 ML IV STA (15:00)
[2022-09-27 15:05] LABS: BASOPHILS % (AUTO) 0 % (0-10); EOSINOPHILS # (AUTO) 0.2 10^3/uL (0.0-0.3); EOSINOPHILS % (AUTO) 2 % (0-10); HEMATOCRIT 37 % (35-52); LYMPHOCYTES # (AUTO) 3.1 10^3/uL (1.0-4.0); LYMPHOCYTES % (AUTO) 30 % (12-44); MEAN CORPUSCULAR HEMOGLOBIN 26 pg (25-34); MEAN CORPUSCULAR HGB CONC 32 g/dL (32-36); MEAN CORPUSCULAR VOLUME 82 fL (80-99); MEAN PLATELET VOLUME 9.8 fL (9.0-12.2); MONOCYTES # (AUTO) 0.4 10^3/uL (0.0-1.0); MONOCYTES % (AUTO) 4 % (0-12); NEUTROPHILS # (AUTO) 6.5 10^3/uL (1.8-7.8); NEUTROPHILS % (AUTO) 64 % (42-75); PLATELET COUNT 263 10^3/uL (130-400); WHITE BLOOD COUNT 10.2 10^3/uL (4.3-11.0)
--- NOTE | 2022-09-27 15:09 | ED Abdominal Pain ---
General Chief Complaint: Abdominal/GI Problems Stated Complaint: VOMITING | NAUSEA | ABD PAIN | HEADACHE Nursing Triage Note: PT AMB TO TRIAGE. PT CO OF ABD PAIN IN UPPER ABD AND BURNING BILATERAL LOWER ABD. PT CO OF MEJIA AND BEING TIRED SINCE SATURDAY Source of Information: Patient Exam Limitations: No Limitations History of Present Illness Date Seen by Provider: Sep 27, 2022 Time Seen by Provider: 15:04 Initial Comments Patient is a 37-year-old female with a history of chronic pancreatitis, migraines, cyclic vomiting syndrome, depression anxiety who presents the ED complaining of upper abdominal pain with radiation to the back. Symptoms started this past Saturday. Pain is described as sharp and constant. She states she has not been able to eat or drink since Saturday. She reports normal bowel movements without constipation or diarrhea. Denies hematemesis, bloody stools. denies any fever. Patient states she was recently diagnosed with a hernia. She states she followed up with Dr. Marroquin who would not perform any surgery until she followed up with bariatric specialty in [place]. She does see his GI specialist in [place]. Patient states she does have some burning sensation left lower quadrant. Pain is very similar in nature to her previous pain. Patient states she sees oncology for history of kidney cancer. Not currently on chemotherapy or radiation. History of appendectomy, cholecystectomy, bowel resection, total hysterectomy. Patient denies of any urinary symptoms. Allergies and Home Medications Allergies Coded Allergies: meperidine (Verified Allergy, Unknown, 01/24/22) penicillin G (Verified Allergy, Unknown, 01/24/22) prochlorperazine (Verified Allergy, Unknown, 01/24/22) trimethobenzamide (Unverified Allergy, Unknown, 01/24/22) vancomycin (Verified Adverse Reaction, Intermediate, severe itching, 01/24/22) fentanyl (Verified Adverse Reaction, Unknown, HALLUCINATIONS, 02/27/22) Patient Home Medication List Home Medication List Reviewed: Yes Acetaminophen (Tylenol Extra Strength) 500 Mg Tablet, 1,000 MG PO Q8H PRN for PAIN-MILD (1-4), (Reported) Entered as Reported by: EMILIO SHEPPARD on 10/26/19 0812 Albuterol Sulfate (Ventolin Hfa) 90 Mcg Hfa.aer.ad, 2 PUFF INH Q6H PRN for SHORTNESS OF BREATH, (Reported) Entered as Reported by: CASSANDRA CHOPRA on 02/15/22 1215 Albuterol Sulfate (Albuterol Sulfate) 2.5 Mg/3 Ml (0.083 %) Vial.neb, 3 ML PO Q8H PRN for SHORTNESS OF BREATH, (Reported) Entered as Reported by: CASSANDRA CHOPRA on 02/15/22 1215 Amitriptyline HCl (Amitriptyline HCl) 10 Mg Tablet, 10 MG PO HS Prescribed by: CARMEN GIBBS on 03/01/22 1124 Atorvastatin Calcium (Atorvastatin Calcium) 40 Mg Tablet, 40 MG PO HS, (Reported) Entered as Reported by: CASSANDRA CHOPRA on 02/15/22 1215 Benzonatate (Benzonatate) 100 Mg Capsule, 100 MG PO TID PRN for COUGH, (Reported) Entered as Reported by: CASSANDRA CHOPRA on 02/15/22 1215 Cefdinir (Cefdinir) 300 Mg Capsule, 300 MG PO BID Prescribed by: YAN CHAPARRO on 04/21/22 0052 Cefdinir (Cefdinir) 300 Mg Capsule, 300 MG PO BID Prescribed by: YAN CHAPARRO on 05/08/22 2347 Cephalexin (Cephalexin) 500 Mg Tablet, 500 MG PO QID Prescribed by: YAN CHAPARRO on 05/22/22 0228 Cephalexin (Cephalexin) 500 Mg Tablet, 500 MG PO BID Prescribed by: ULI GARNER on 09/27/22 1730 Cetirizine HCl (Cetirizine HCl) 10 Mg Tablet, 10 MG PO HS, (Reported) Entered as Reported by: CASSANDRA CHOPRA on 02/15/22 1215 Cyanocobalamin (Cyanocobalamin Injection) 1,000 Mcg/Ml Inj, 1,000 MCG IM MONTHLY, (Reported) Entered as Reported by: GRIFFIN ORTEGA on 07/24/21 1145 Diphenhydramine HCl (Benadryl) 25 Mg Capsule, 50 MG PO HS, (Reported) Entered as Reported by: EMILIO SHEPPARD on 10/26/19 0812 Glycerin (Glycerin) Adult Supp.rect, 1 EACH RC DAILY PRN for CONSTIPATION Prescribed by: IZABELA MAC on 07/31/22 0238 Hydrocodone/Acetaminophen (Hydrocodone-Acetamin 5-325 mg) 5 Mg-325 Mg Tablet, 1 TAB PO Q6H PRN for PAIN-MODERATE (5-7), (Reported) Entered as Reported by: CASSANDRA CHOPRA on 02/15/22 1215 Metoclopramide HCl (Reglan) 5 Mg Tablet, 5 MG PO Q6H PRN for NAUSEA/VOMITING Prescribed by: IZABELA MAC on 07/31/22 0238 Ondansetron (Ondansetron Odt) 8 Mg Tab.rapdis, 8 MG PO Q8H PRN for NAUSEA/VOMITING-1ST LINE, (Reported) Entered as Reported by: EMILIO SHEPPARD on 10/26/19 0812 Pantoprazole Sodium (Pantoprazole Sodium) 40 Mg Tablet.dr, 40 MG PO DAILY Prescribed by: CARMEN GIBBS on 03/01/22 1124 Promethazine HCl (Promethazine Tablet) 25 Mg Tablet, 25 MG PO Q6H PRN for NAUSEA/VOMITING-2ND LINE, (Reported) Entered as Reported by: LEX HOSKINS on 12/07/20 0916 Ropinirole HCl (Ropinirole HCl) 4 Mg Tablet, 4 MG PO HS, (Reported) Entered as Reported by: LEX HOSKINS on 06/28/17 1010 Sitagliptin Phos/Metformin HCl (Janumet Xr 50-1,000 mg Tablet) 50 Mg-1,000 Mg Tbmp.24hr, 2 TAB PO HS, (Reported) Entered as Reported by: LEX HOSKINS on 12/07/20 0916 Sucralfate (Sucralfate) 1 Gram Tablet, 1 GM PO ACHS Prescribed by: CARMEN GIBBS on 03/01/22 1124 Review of Systems Review of Systems Constitutional: No chills, No diaphoresis, No fever, No malaise, No weakness EENTM: No Double Vision Respiratory: Denies Cough Gastrointestinal: Abdominal Pain; Denies Constipated, Denies Diarrhea; Nausea, Vomiting Genitourinary: Denies Burning, Denies Discharge, Denies Drainage, Denies Frequency Musculoskeletal: No back pain Skin: No change in color All Other Systems Reviewed Negative Unless Noted: Yes Past Agkoeoe-Btgqlp-Kvpcur Hx Patient Social History Tobacco Use?: No Substance use?: No Alcohol Use?: No Pt feels they are or have been: No Immunizations Up To Date Tetanus Booster (TDap): Less than 5yrs PED Vaccines UTD: No Influenza Vaccine Up-to-Date: No; Not Current First/Initial COVID19 Vaccinat: YES Second COVID19 Vaccination Alvaro: YES Third COVID19 Vaccination Date: YES Seasonal Allergies Seasonal Allergies: No Past Medical History Surgery/Hospitalization HX: several surgeries including 1 kidney removal, appendectomy, cammie., and power port placement, POWER PORT REMOVAL, HYSTERECTOMY pmh: pancreatitis, high chol, kidney ca, migraines, depression, sleep apnea, prediabetic Surgeries: Yes (hernia repair x2, knee scopes, port placement) Adenoidectomy, Appendectomy, Gallbladder, Hysterectomy, Nephrectomy, Orthopedic, Tonsillectomy Respiratory: Yes Asthma Currently Using CPAP: No Currently Using BIPAP: No Cardiac: Yes Hypertension Neurological: Yes Headaches /Migraines Reproductive Disorders: Yes (HX ENDOMETRIOSIS ) 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: 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 History: Hysterectomy Sexually Transmitted Disease: No HIV/AIDS: No Genitourinary: Yes (S/P LEFT NEPHRECTOMY) UTI-Chronic Gastrointestinal: Yes (CHRONIC ABD PAIN/N/V./D) Abdominal Hernia, Gastroesophageal Reflux, Liver Disease/Jaundice, Obstructive Bowel, Pancreatitis, Chronic Diarrhea, Polyps Musculoskeletal: Yes (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) Chronic Back Pain Endocrine: Yes (OBESITY) Diabetes, Non-Insulin dep HEENT: No Loss of Vision: Denies Hearing Impairment: Denies Cancer: Yes Kidney Did You Recieve Any Treatments: Yes What Type of Treatment Did You: Surgical Intervention Psychosocial: Yes Anxiety, Depression Integumentary: No Herpes Blood Disorders: No Adverse Reaction/Blood Tranf: No (N/A) Family Medical History Cardiovascular disease 19 FATHER Completed stroke 19 FATHER Diabetes mellitus 19 FATHER Hypercholesterolemia 19 FATHER 19 MOTHER Hypertension 19 FATHER 19 MOTHER Neoplasm 19 MOTHER Psychosocial problem 19 FATHER 19 MOTHER No Pertinent Family Hx, Cancer, Diabetes, Hypertension PSH: -RIGHT KNEE SCOPE X 5 -LEFT KNEE SCOPE X 2 -TONSILLECTOMY / ADENOIDECTOMY -APPENDECTOMY -CHOLECYSTECTOMY -NASAL FRACTURE REPAIR -COCCYX REMOVAL -LEFT NEPHRECTOMY FOR MALIGNANCY -LEFT MID ABDOMEN INCISIONAL HERNIA REPAIR -DRAINAGE OF ABDOMINAL WALL ABSCESS -MULTIPLE EGD'S AND COLONOSCOPIES-- LAST ONE HERE 10/2019. HAD ONE 07/2022 AT -HYSTERECTOMY / BILATERAL SAL[place]O-OOPHORECTOMY 2007 -06/23/20--RIGHT CHEST WALL/SHOULDER INJECTION FOR THORACIC OUTLET SYNDROME--DONE IN -PORT REMOVED FROM LEFT CHEST 07/24/21 FOR NON-FUNCTIONING PORT-BY DR. MARROQUIN Physical Exam Vital Signs Vital Signs - First Documented 09/27/22 14:15 Temp 37.1 Pulse 94 Resp 18 B/P (MAP) 143/84 (103) Pulse Ox 97 Capillary Refill : Less Than 3 Seconds Height/Weight/BMI Height: 5'3.00" Weight: 246lbs. 0oz. 111.525597wa; 47.00 BMI Method:Stated General Appearance: WD/WN, no apparent distress HEENT: PERRL/EOMI, normal ENT inspection, TMs normal, pharynx normal Neck: non-tender, full range of motion, supple, normal inspection Respiratory: chest non-tender, lungs clear, no respiratory distress, no accessory muscle use Cardiovascular: regular rate, rhythm, no edema, no gallop, no JVD Gastrointestinal: normal bowel sounds, no pulsatile mass, tenderness (Epigastric tenderness, left lower quadrant tenderness) Extremities: normal range of motion, non-tender, normal inspection, no pedal edema, no calf tenderness Back: normal inspection, no CVA tenderness, no vertebral tenderness Pelvic: normal external exam, normal adnexa Skin: normal color, warm/dry Progress/Results/Core Measures Results/Orders Lab Results Laboratory Tests Test 09/27/22 14:45 09/27/22 15:28 Range/Units White Blood Count 10.2 4.3-11.0 10^3/uL Red Blood Count 4.59 3.80-5.11 10^6/uL Hemoglobin 12.0 11.5-16.0 g/dL Hematocrit 37 35-52 % Mean Corpuscular Volume 82 80-99 fL Mean Corpuscular Hemoglobin 26 25-34 pg Mean Corpuscular Hemoglobin Concent 32 32-36 g/dL Red Cell Distribution Width 14.5 10.0-14.5 % Platelet Count 263 130-400 10^3/uL Mean Platelet Volume 9.8 9.0-12.2 fL Immature Granulocyte % (Auto) 0 % Neutrophils (%) (Auto) 64 42-75 % Lymphocytes (%) (Auto) 30 12-44 % Monocytes (%) (Auto) 4 0-12 % Eosinophils (%) (Auto) 2 0-10 % Basophils (%) (Auto) 0 0-10 % Neutrophils # (Auto) 6.5 1.8-7.8 10^3/uL Lymphocytes # (Auto) 3.1 1.0-4.0 10^3/uL Monocytes # (Auto) 0.4 0.0-1.0 10^3/uL Eosinophils # (Auto) 0.2 0.0-0.3 10^3/uL Basophils # (Auto) 0.0 0.0-0.1 10^3/uL Immature Granulocyte # (Auto) 0.0 0.0-0.1 10^3/uL Sodium Level 144 135-145 MMOL/L Potassium Level 4.3 3.6-5.0 MMOL/L Chloride Level 109 H 98-107 MMOL/L Carbon Dioxide Level 21 21-32 MMOL/L Anion Gap 14 5-14 MMOL/L Blood Urea Nitrogen 15 7-18 MG/DL Creatinine 0.80 0.60-1.30 MG/DL Estimat Glomerular Filtration Rate 97 BUN/Creatinine Ratio 19 Glucose Level 121 H 70-105 MG/DL Calcium Level 9.5 8.5-10.1 MG/DL Corrected Calcium 9.4 8.5-10.1 MG/DL Magnesium Level 2.0 1.6-2.4 MG/DL Total Bilirubin 0.3 0.1-1.0 MG/DL Aspartate Amino Transf (AST/SGOT) 25 5-34 U/L Alanine Aminotransferase (ALT/SGPT) 33 0-55 U/L Alkaline Phosphatase 78 40-136 U/L Total Protein 7.4 6.4-8.2 GM/DL Albumin 4.1 3.2-4.5 GM/DL Lipase 43 8-78 U/L Urine Color YELLOW Urine Clarity CLEAR Urine pH 6.0 5-9 Urine Specific [place] 1.020 1.016-1.022 Urine Protein NEGATIVE NEGATIVE Urine Glucose (UA) NEGATIVE NEGATIVE Urine Ketones NEGATIVE NEGATIVE Urine Nitrite NEGATIVE NEGATIVE Urine Bilirubin NEGATIVE NEGATIVE Urine Urobilinogen 0.2 < = 1.0 MG/DL Urine Leukocyte Esterase 1+ H NEGATIVE Urine RBC (Auto) NEGATIVE NEGATIVE Urine RBC NONE /HPF Urine WBC 5-10 H /HPF Urine Squamous Epithelial Cells 2-5 /HPF Urine Crystals NONE /LPF Urine Bacteria TRACE /HPF Urine Casts NONE /LPF Urine Mucus NEGATIVE /LPF Urine Culture Indicated YES My Orders Orders - LYSSA MORALES Cbc With Automated Diff (09/27/22 15:00) Comprehensive Metabolic Panel (09/27/22 15:00) Lipase (09/27/22 15:00) Magnesium (09/27/22 15:00) Ns Iv 1000 Ml (Sodium Chloride 0.9%) (09/27/22 15:00) Ondansetron Injection (Zofran Injectio (09/27/22 15:00) Ua Culture If Indicated (09/27/22 15:00) Promethazine Injection (Phenergan Injec (09/27/22 15:45) Urine Culture (09/27/22 15:28) Metoclopramide Injection (Reglan Injecti (09/27/22 16:30) Fentanyl Inj (Sublimaze Injection) (09/27/22 16:27) Diphenhydramine Injection (Benadryl Inje (09/27/22 16:45) Diphenhydramine Tablet (Benadryl Tablet) (09/27/22 16:41) Metoclopramide Injection (Reglan Injecti (09/27/22 17:15) Metoclopramide Injection (Reglan Injecti (09/27/22 17:13) Medications Given in ED Current Medications Medications Dose Ordered Sig/Neal Route Start Time Stop Time Status Last Admin Dose Admin Diphenhydramine HCl 25 mg ONCE ONCE IVP 09/27/22 16:45 09/27/22 16:46 DC 09/27/22 16:42 25 MG Metoclopramide HCl 10 mg ONCE ONCE IVP 09/27/22 17:15 09/27/22 17:16 DC 09/27/22 17:16 10 MG Ondansetron HCl 4 mg ONCE ONCE IVP 09/27/22 15:00 09/27/22 15:02 DC 09/27/22 15:19 4 MG Promethazine HCl 25 mg ONCE ONCE IVP 09/27/22 15:45 09/27/22 15:46 DC 09/27/22 15:41 25 MG Vital Signs/I&O 09/27/22 09/27/22 14:15 17:37 Temp 37.1 Pulse 94 82 Resp 18 B/P (MAP) 143/84 (103) 133/81 Pulse Ox 97 Blood Pressure Mean: 103 Departure Communication (PCP) Patient is a 37-year-old female presents ED for chronic upper abdominal pain. Similar type pain in the past. Chronic pancreatitis. Vomiting since Saturday. Has not been able to eat or drink. She states today's symptoms are very similar in nature to her previous visits. Zofran and Phenergan at home without much improvement. Reviewed previous ER visits, H&P, lab testing. Differential diagnosis of chronic abdominal pain, cyclic vomiting syndrome, pancreatitis. History of cholecystectomy and appendectomy. History of hysterectomy. No specific urinary symptoms. She was given a liter of fluid, Zofran and Phenergan with very minimal improvement. She attempted to drink fluids but vomited. She was given Reglan with improvement. CBC, CMP and lipase was ordered with urinalysis. CBC CMP grossly unremarkable. Normal lipase, liver function and kidney function. No evidence of surgical abdomen. She had a CT abdomen pelvis in August that showed a retro medical hernia which contains a loop of small bowel. No evidence of palpable hernia at this time. No localized pain to this area. She does have a bulge early left-sided Spiegelman type hernia. No obstruction or inflammatory changes in that area. No tenderness to this location at this time.. Patient's pain appears to be similar to her chronic pancreatitis. Pain improved after dose of fentanyl with Benadryl. She is requesting to be discharged. She does have a GI specialist at [place] that she does follow-up who recommend bariatric surgery. Currently following up with Dr. Marroquin regarding the hernias. No evidence suggesting strangulation or incarceration. No imaging at this time Impression Primary Impression: Nausea and vomiting Disposition: HOME, SELF-CARE Condition: Stable Departure-Patient Inst. Decision time for Depature: 17:30 Referrals: CARMEN GIBBS MD (PCP/Family) Primary Care Physician Patient Instructions: Nausea and Vomiting, Adult (DC) Scripts Cephalexin (Cephalexin) 500 Mg Tablet 500 MG PO BID for 7 Days, #14 TAB Prov: LYSSA MORALES 09/27/22 LYSSA MORALES Sep 27, 2022 15:09
[2022-09-27 15:12] LABS: ALBUMIN 4.1 GM/DL (3.2-4.5); POTASSIUM 4.3 MMOL/L (3.6-5.0)
[2022-09-27 15:13] LABS: CALCIUM 9.5 MG/DL (8.5-10.1)
[2022-09-27 15:15] LABS: TOTAL PROTEIN 7.4 GM/DL (6.4-8.2)
[2022-09-27 15:16] LABS: BILIRUBIN,TOTAL 0.3 MG/DL (0.1-1.0)
[2022-09-27 15:18] LABS: CREATININE SERUM 0.8 MG/DL (0.60-1.30)
[2022-09-27 15:38] LABS: BILIRUBIN,URINE NEGATIVE (NEGATIVE); CLARITY,URINE CLEAR; COLOR,URINE YELLOW; GLUCOSE, URINE (UA) NEGATIVE (NEGATIVE); KETONES,URINE NEGATIVE (NEGATIVE); LEUKOCYTE ESTERASE ,URINE 1+ (NEGATIVE); NITRITE,URINE NEGATIVE (NEGATIVE); PROTEIN,URINE NEGATIVE (NEGATIVE)
[2022-09-27] MEDS ORDERED: PROMETHAZINE INJ 25 MG/ML (PHENERGAN) AMP IVP ONE (15:45)
[2022-09-27 15:53] LABS: BACTERIA,URINE TRACE /HPF
[2022-09-27] MEDS ORDERED: fentaNYL INJ 100 MCG/2 ML AMP IVP STA (16:27)
[2022-09-27] MEDS ORDERED: METOCLOPRAMIDE INJ 10 MG/2 ML (REGLAN) IVP ONE ×2 (16:30→17:15)
[2022-09-27] MEDS ORDERED: diphenhydrAMINE 25 MG TAB (BENADRYL) PO ONE (16:41)
[2022-09-27] MEDS ORDERED: diphenhydrAMINE 50 MG/ML INJ (BENADRYL) IVP ONE (16:45)
[2022-09-27] MEDS ORDERED: METOCLOPRAMIDE INJ 10 MG/2 ML (REGLAN) ONE (17:13)
[2022-09-27] MEDS ORDERED: CEPH500T PO (17:30)
[2022-09-27 17:37] VITALS: BP 133/81
== END 2022-09-27 17:37 | disposition home or self-care (01) ==
LOC: EDUNIT# 14:05 → ER 14:07
DX: R11.2 Nausea with vomiting, unspecified (principal); K43.9 Ventral hernia without obstruction or gangrene; E66.9 Obesity, unspecified; Z68.42 Body mass index [BMI] 45.0-49.9, adult; Z88.0 Allergy status to penicillin; Z88.1 Allergy status to other antibiotic agents; Z90.49 Acquired absence of other specified parts of digestive tract; Z98.890 Other specified postprocedural states
CPT/HCPCS: 36415; 80053; 81000; 83690; 83735; 85025; 87088

== ENCOUNTER → 2022-10-15 | Outpatient (CLI) | payer MEDICARE, MEDICAID ==
[~2022-10-15] VITALS: Ht 160 cm; Wt 120.5 kg
[~2022-10-15] MED LIST changes: +NS IV 1000 ML 1,000 ML IV NR
[2022-10-15 15:12] VITALS: BP 142/100
== END ==
LOC: SDC 13:31
PROVIDERS: ATTEND Family Medicine
DX: R11.2 Nausea with vomiting, unspecified (principal)
CPT/HCPCS: 96360

== ENCOUNTER 2022-10-28 21:04 | Emergency (ER) | payer MEDICARE, MEDICAID ==
[~2022-10-28] VITALS: Ht 160 cm; Wt 128.5 kg
[~2022-10-28 21:04] MED LIST changes: -NS IV 1000 ML 1,000 ML IV NR; -ORPH100T PO; +ORPH100T3 PO
--- NOTE | 2022-10-28 22:19 | ED Lower Extremity ---
General Chief Complaint: Lower Extremity Stated Complaint: NAUSEA/ABD PAIN LEFT FOOT SWELLING Nursing Triage Note: Patient c/o Lt. foot pain x 3 days after she fell down some steps. Patient denies any numbness or tingling to her Lt. foot. Patient states she broke one of her toes 2 on her Lt. foot after a fall 2 wks ago. Patient states she took tylenol 3 hrs ago and a Sunset at 1300 today. Lt. pedal pulse is strong to palpation. Lt. foot is swollen. Patient walked to ER room # 6 with steady gait. Source: patient Exam Limitations: no limitations History of Present Illness Date Seen by Provider: October 28, 2022 Time Seen by Provider: 22:08 Initial Comments 37-year-old female presents the ED with complaints of left foot pain and swelling. She states that she fell on 10/26/2022 injuring her left foot. She states that at the beginning of this month she also broke her middle toe on this foot. She reports that soon as she takes her compression stockings off, she has swelling in this foot. She denies swelling in her other foot. She has 1 kidney, and is concerned that the swelling is because of her kidney function. She is also complaining of burning with urination. She reports nausea and vomiting, and abdominal pain. She has chronic abdominal pain, states that this pain is normal for her. She reports she took Phenergan at 1 PM and Zofran at 3 PM. Allergies and Home Medications Allergies Coded Allergies: meperidine (Verified Allergy, Unknown, 01/24/22) penicillin G (Verified Allergy, Unknown, 01/24/22) prochlorperazine (Verified Allergy, Unknown, 01/24/22) trimethobenzamide (Unverified Allergy, Unknown, 01/24/22) vancomycin (Verified Adverse Reaction, Intermediate, severe itching, 01/24/22) fentanyl (Verified Adverse Reaction, Unknown, HALLUCINATIONS, 02/27/22) Patient Home Medication List Home Medication List Reviewed: Yes Acetaminophen (Tylenol Extra Strength) 500 Mg Tablet, 1,000 MG PO Q8H PRN for PAIN-MILD (1-4), (Reported) Entered as Reported by: EMILIO SHEPPARD on 10/26/19 0812 Albuterol Sulfate (Ventolin Hfa) 90 Mcg Hfa.aer.ad, 2 PUFF INH Q6H PRN for SHORTNESS OF BREATH, (Reported) Entered as Reported by: CASSANDRA CHOPRA on 02/15/22 1215 Albuterol Sulfate (Albuterol Sulfate) 2.5 Mg/3 Ml (0.083 %) Vial.neb, 3 ML PO Q8H PRN for SHORTNESS OF BREATH, (Reported) Entered as Reported by: CASSANDRA CHOPRA on 02/15/22 1215 Amitriptyline HCl (Amitriptyline HCl) 10 Mg Tablet, 10 MG PO HS Prescribed by: CARMEN GIBBS on 03/01/22 112 Atorvastatin Calcium (Atorvastatin Calcium) 40 Mg Tablet, 40 MG PO HS, (Reported) Entered as Reported by: CASSANDRA CHOPRA on 02/15/22 121 Cyanocobalamin (Cyanocobalamin Injection) 1,000 Mcg/Ml Inj, 1,000 MCG IM MONTHLY, (Reported) Entered as Reported by: GRIFFIN ORTEGA on 07/24/21 1145 Diphenhydramine HCl (Benadryl) 25 Mg Capsule, 50 MG PO HS, (Reported) Entered as Reported by: EMILIO SHEPPARD on 10/26/19 0812 Glycerin (Glycerin) Adult Supp.rect, 1 EACH RC DAILY PRN for CONSTIPATION Prescribed by: IZABELA MAC on 07/31/22 0238 Hydrocodone/Acetaminophen (Hydrocodone-Acetamin 5-325 mg) 5 Mg-325 Mg Tablet, 1 TAB PO Q6H PRN for PAIN-MODERATE (5-7), (Reported) Entered as Reported by: CASSANDRA CHOPRA on 02/15/22 121 Metoclopramide HCl (Reglan) 5 Mg Tablet, 5 MG PO Q6H PRN for NAUSEA/VOMITING Prescribed by: IZABELA MAC on 07/31/22 0238 Ondansetron (Ondansetron Odt) 8 Mg Tab.rapdis, 8 MG PO Q8H PRN for NAUSEA/VOMITING-1ST LINE, (Reported) Entered as Reported by: EMILIO SHEPPARD on 10/26/19 0812 Pantoprazole Sodium (Pantoprazole Sodium) 40 Mg Tablet.dr, 40 MG PO DAILY Prescribed by: CARMEN GIBBS on 03/01/22 112 Promethazine HCl (Promethazine Tablet) 25 Mg Tablet, 25 MG PO Q6H PRN for NAUSEA/VOMITING-2ND LINE, (Reported) Entered as Reported by: LEX HOSKINS on 12/07/20 0916 Ropinirole HCl (Ropinirole HCl) 4 Mg Tablet, 4 MG PO HS, (Reported) Entered as Reported by: LEX HOSKINS on 06/28/17 1010 Sitagliptin Phos/Metformin HCl (Janumet Xr 50-1,000 mg Tablet) 50 Mg-1,000 Mg Tbmp.24hr, 2 TAB PO HS, (Reported) Entered as Reported by: LEX HOSKINS on 12/07/20 0916 Review of Systems Constitutional: see HPI Past Nzhuymc-Tdsdbx-Ovmqni Hx Patient Social History Tobacco Use?: No Use of E-Cig and/or Vaping dev: No Substance use?: No Alcohol Use?: No Pt feels they are or have been: No Immunizations Up To Date Tetanus Booster (TDap): Less than 5yrs PED Vaccines UTD: No Influenza Vaccine Up-to-Date: No; Not Current First/Initial COVID19 Vaccinat: YES Second COVID19 Vaccination Alvaro: YES Third COVID19 Vaccination Date: YES Seasonal Allergies Seasonal Allergies: No Past Medical History Surgery/Hospitalization HX: several surgeries including 1 kidney removal, appendectomy, cammie., and power port placement, POWER PORT REMOVAL, HYSTERECTOMY pmh: pancreatitis, high chol, kidney ca, migraines, depression, sleep apnea, prediabetic Surgeries: Yes (hernia repair x2, knee scopes, port placement) Adenoidectomy, Appendectomy, Gallbladder, Hysterectomy, Nephrectomy, Orthopedic, Tonsillectomy Respiratory: Yes Asthma Currently Using CPAP: No Currently Using BIPAP: No Cardiac: Yes Hypertension Neurological: Yes Headaches /Migraines Reproductive Disorders: Yes (HX ENDOMETRIOSIS ) 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: 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 [employer] History: Hysterectomy Sexually Transmitted Disease: No HIV/AIDS: No Genitourinary: Yes (S/P LEFT NEPHRECTOMY) UTI-Chronic Gastrointestinal: Yes (CHRONIC ABD PAIN/N/V./D) Abdominal Hernia, Gastroesophageal Reflux, Liver Disease/Jaundice, Obstructive Bowel, Pancreatitis, Chronic Diarrhea, Polyps Musculoskeletal: Yes (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) Chronic Back Pain Endocrine: Yes (OBESITY) Diabetes, Non-Insulin dep HEENT: No Loss of Vision: Denies Hearing Impairment: Denies Cancer: Yes Kidney Did You Recieve Any Treatments: Yes What Type of Treatment Did You: Surgical Intervention Psychosocial: Yes Anxiety, Depression Integumentary: No Herpes Blood Disorders: No Adverse Reaction/Blood Tranf: No (N/A) Family Medical History Cardiovascular disease 19 FATHER Completed stroke 19 FATHER Diabetes mellitus 19 FATHER Hypercholesterolemia 19 FATHER 19 MOTHER Hypertension 19 FATHER 19 MOTHER Neoplasm 19 MOTHER Psychosocial problem 19 FATHER 19 MOTHER No Pertinent Family Hx, Cancer, Diabetes, Hypertension PSH: -RIGHT KNEE SCOPE X 5 -LEFT KNEE SCOPE X 2 -TONSILLECTOMY / ADENOIDECTOMY -APPENDECTOMY -CHOLECYSTECTOMY -NASAL FRACTURE REPAIR -COCCYX REMOVAL -LEFT NEPHRECTOMY FOR MALIGNANCY -LEFT MID ABDOMEN INCISIONAL HERNIA REPAIR -DRAINAGE OF ABDOMINAL WALL ABSCESS -MULTIPLE EGD'S AND COLONOSCOPIES-- LAST ONE HERE 10/2019. HAD ONE 07/2022 AT -HYSTERECTOMY / BILATERAL SALPINGO-OOPHORECTOMY 2007 -06/23/20--RIGHT CHEST WALL/SHOULDER INJECTION FOR THORACIC OUTLET SYNDROME--DONE IN -PORT REMOVED FROM LEFT CHEST 07/24/21 FOR NON-FUNCTIONING PORT-BY DR. MARROQUIN Physical Exam Vital Signs Vital Signs - First Documented 10/28/22 21:27 Temp 36.6 Pulse 91 Resp 20 B/P (MAP) 145/89 (107) Pulse Ox 96 O2 Delivery Room Air Capillary Refill : Height, Weight, BMI Height: 5'3.00" Weight: 246lbs. 0oz. [id number]; 50.00 BMI Method:Stated General Appearance: WD/WN, no apparent distress Neck: supple, normal inspection Cardiovascular: regular rate, rhythm Respiratory: lungs clear, normal breath sounds, no respiratory distress, no accessory muscle use Feet: right foot normal inspection, right foot no evidence of injury; left foot pain, left foot soft tissue tenderness, left foot swelling Neurologic/Psychiatric: alert, normal mood/affect Skin: normal color, warm/dry Progress/Results/Core Measures Results/Orders Lab Results Laboratory Tests Test 10/28/22 22:34 Range/Units Urine Color YELLOW Urine Clarity CLEAR Urine pH 6.0 5-9 Urine Specific [place] 1.020 1.016-1.022 Urine Protein NEGATIVE NEGATIVE Urine Glucose (UA) NEGATIVE NEGATIVE Urine Ketones NEGATIVE NEGATIVE Urine Nitrite NEGATIVE NEGATIVE Urine Bilirubin NEGATIVE NEGATIVE Urine Urobilinogen 0.2 < = 1.0 MG/DL Urine Leukocyte Esterase 1+ H NEGATIVE Urine RBC (Auto) NEGATIVE NEGATIVE Urine RBC RARE /HPF Urine WBC 5-10 H /HPF Urine Squamous Epithelial Cells 0-2 /HPF Urine Crystals NONE /LPF Urine Bacteria MODERATE H /HPF Urine Casts NONE /LPF Urine Mucus NEGATIVE /LPF Urine Culture Indicated YES My Orders Orders - LIN HOLLEY APRN Promethazine Injection (Phenergan Injec (10/28/22 22:30) Foot, Left, 3 Views (10/28/22 22:16) Ua Culture If Indicated (10/28/22 22:19) Urine Culture (10/28/22 22:34) Cbc With Automated Diff (10/28/22 23:00) Fibrin Degradation Products (10/28/22 23:00) Comprehensive Metabolic Panel (10/28/22 23:00) Sulfamethoxazole/Trimet Ds Tab (Bactrim (10/28/22 23:15) Medications Given in ED Current Medications Medications Dose Ordered Sig/Neal Route Start Time Stop Time Status Last Admin Dose Admin Promethazine HCl 25 mg ONCE ONCE IM 10/28/22 22:30 10/28/22 22:31 DC 10/28/22 22:36 25 MG Vital Signs/I&O 10/28/22 21:27 Temp 36.6 Pulse 91 Resp 20 B/P (MAP) 145/89 (107) Pulse Ox 96 O2 Delivery Room Air Blood Pressure Mean: 107 Progress Progress Note : Progress Note Patient seen and evaluated, resting in bed, no acute distress. Based on exam and symptoms, x-ray of left foot ordered. Phenergan ordered for complaints of nausea. Urinalysis ordered for dysuria. Departure Impression Primary Impression: Cellulitis Additional Impression: UTI (urinary tract infection) Disposition: 01 HOME, SELF-CARE Condition: Stable Departure-Patient Inst. Decision time for Depature: 23:17 Referrals: CARMEN GIBBS MD (PCP/Family) Primary Care Physician Patient Instructions: Cellulitis (Skin Infection), Adult (DC) Add. Discharge Instructions: Complete full course of antibiotic as directed, even if you begin to feel better. This antibiotic will cover both cellulitis and your UTI. If your urine culture comes back resistant to this antibiotic, you will be called to be started on a different antibiotic. If your urine is resistant to this antibiotic, do not stop this antibiotic just start the new one that they prescribed you. You may call tomorrow morning after 9 AM to get the official read on your x-ray. Return for severe pain, fever, worsening swelling, or any other new, concerning, or worsening symptoms. All discharge instructions reviewed with patient and/or family. Voiced understanding. Scripts Sulfamethoxazole/Trimethoprim (Bactrim Ds Tablet) 1 Each Tablet 1 EACH PO BID for 7 Days, #14 TAB 0 Refills Prov: LIN HOLLEY APRN 10/28/22 LIN HOLLEY APRN October 28, 2022 22:19
[2022-10-28] MEDS ORDERED: PROMETHAZINE INJ 25 MG/ML (PHENERGAN) AMP IM ONE (22:30)
[2022-10-28 22:47] LABS: BILIRUBIN,URINE NEGATIVE (NEGATIVE); CLARITY,URINE CLEAR; COLOR,URINE YELLOW; GLUCOSE, URINE (UA) NEGATIVE (NEGATIVE); KETONES,URINE NEGATIVE (NEGATIVE); LEUKOCYTE ESTERASE ,URINE 1+ (NEGATIVE); NITRITE,URINE NEGATIVE (NEGATIVE); PROTEIN,URINE NEGATIVE (NEGATIVE)
[2022-10-28 22:57] LABS: BACTERIA,URINE MODERATE /HPF; RBC,URINE RARE /HPF; SQUAMOUS EPITHELIAL CELL,UR 0-2 /HPF
[2022-10-28] MEDS ORDERED: TRIM/SULFAMETH 160/800 (SEPTRA DS) TAB PO ONE (23:15)
[2022-10-28] MEDS ORDERED: SULF1TAB38 PO (23:19)
[2022-10-28 23:50] VITALS: BP 141/92
--- NOTE | 2022-10-29 06:13 | Diagnostic Imaging Report ---
Indication: Left foot pain 3 views of the left foot show no fracture, dislocation or other acute abnormalities. IMPRESSION: Negative left foot Dictated by: Dictated on workstation # [id number]
== END 2022-10-28 23:50 | disposition home or self-care (01) ==
LOC: EDUNIT# 21:04 → ER 21:06
DX: L03.116 Cellulitis of left lower limb (principal); N39.0 Urinary tract infection, site not specified; E66.9 Obesity, unspecified; Z68.43 Body mass index [BMI] 50.0-59.9, adult; Z88.0 Allergy status to penicillin; Z88.1 Allergy status to other antibiotic agents
CPT/HCPCS: 73630; 81000; 87088

== ENCOUNTER → 2022-10-31 | Outpatient (CLI) | payer MEDICARE, MEDICAID ==
[~2022-10-31] MED LIST changes: +CATHETER FLUSH 10 ML SYR IV PRN; +HOLD METFORMIN - RECEIVED CONTRAST 20 ML VIAL IV SCH; +IOHEXOL 350 MG/ML 100 ML (OMNIPAQUE 350) VIAL IV ONE; +NS 100 ML (IVPB) BAG IV ONE
--- NOTE | 2022-10-31 11:12 | Diagnostic Imaging Report ---
EXAMINATION: CT chest with intravenous contrast. TECHNIQUE: Multiple contiguous axial images were obtained through the chest after the uneventful administration of intravenous contrast. All CT scans use one or more of the following dose optimizing techniques: automated exposure control, MA and/or KvP adjustment based on patient size and exam type or iterative reconstruction. HISTORY: Lung nodule. COMPARISON: Multiple priors dating back to a PET/CT dated 07/17/2021. FINDINGS: There is no edema or pneumonia. No pleural effusion. No pneumothorax. There is a 1.6 x 1.3 cm pleural-based nodule in the left lower lobe which is unchanged dating to 07/17/2021 and showed no FDG avidity and is therefore benign. No other nodules are seen. There is no axillary or supraclavicular lymphadenopathy. There is no mediastinal lymphadenopathy. Heart size is normal. There are no coronary artery calcifications. No pericardial effusion. Aorta is normal in caliber. Limited views of the upper abdomen show changes of cholecystectomy. There are no suspicious osseus lesions. IMPRESSION: Unchanged pleural-based nodule in the left lower lobe dating back to a 07/17/2021 PET/CT where it did not show FDG avidity, consistent with a benign abnormality. No followup needed. Dictated by: Dictated on workstation # [id number]
== END ==
LOC: RAD 09:31
PROVIDERS: ATTEND Internal Medicine Hematology & Oncology
DX: R91.1 Solitary pulmonary nodule (principal)
CPT/HCPCS: 71260; 96360

== ENCOUNTER 2022-11-01 09:49 | Outpatient (RCR) | payer MEDICARE, MEDICAID ==
[~2022-11-01 09:49] MED LIST changes: -CATHETER FLUSH 10 ML SYR IV PRN; -HOLD METFORMIN - RECEIVED CONTRAST 20 ML VIAL IV SCH; -IOHEXOL 350 MG/ML 100 ML (OMNIPAQUE 350) VIAL IV ONE; -NS 100 ML (IVPB) BAG IV ONE
== END 2022-11-14 | disposition home or self-care (01) ==
LOC: ONC 09:49
PROVIDERS: ATTEND Internal Medicine Hematology & Oncology
DX: C64.2 Malignant neoplasm of left kidney, except renal pelvis (principal); E66.01 Morbid (severe) obesity due to excess calories; K76.0 Fatty (change of) liver, not elsewhere classified; E78.5 Hyperlipidemia, unspecified; R91.1 Solitary pulmonary nodule; K46.9 Unspecified abdominal hernia without obstruction or gangrene; I10 Essential (primary) hypertension; J45.909 Unspecified asthma, uncomplicated; K86.1 Other chronic pancreatitis; Z98.890 Other specified postprocedural states

== ENCOUNTER 2022-11-17 12:59 | Emergency (ER) | payer MEDICARE, MEDICAID ==
[~2022-11-17] VITALS: Ht 160 cm; Wt 120.0 kg
[2022-11-17] MEDS ORDERED: NS IV 1000 ML 1,000 ML IV SCH (13:30)
[2022-11-17 13:32] LABS: BASOPHILS % (AUTO) 1 % (0-10); EOSINOPHILS # (AUTO) 0.3 10^3/uL (0.0-0.3); EOSINOPHILS % (AUTO) 3 % (0-10); HEMATOCRIT 37 % (35-52); HEMOGLOBIN 11.8 g/dL (11.5-16.0); LYMPHOCYTES # (AUTO) 2.7 10^3/uL (1.0-4.0); LYMPHOCYTES % (AUTO) 34 % (12-44); MEAN CORPUSCULAR HEMOGLOBIN 26 pg (25-34); MEAN CORPUSCULAR HGB CONC 32 g/dL (32-36); MEAN CORPUSCULAR VOLUME 82 fL (80-99); MEAN PLATELET VOLUME 9.5 fL (9.0-12.2); MONOCYTES # (AUTO) 0.4 10^3/uL (0.0-1.0); MONOCYTES % (AUTO) 5 % (0-12); NEUTROPHILS # (AUTO) 4.5 10^3/uL (1.8-7.8); NEUTROPHILS % (AUTO) 57 % (42-75); PLATELET COUNT 256 10^3/uL (130-400); WHITE BLOOD COUNT 7.9 10^3/uL (4.3-11.0)
[2022-11-17 13:33] LABS: BILIRUBIN,URINE NEGATIVE (NEGATIVE); CLARITY,URINE CLEAR; COLOR,URINE YELLOW; GLUCOSE, URINE (UA) NEGATIVE (NEGATIVE); KETONES,URINE NEGATIVE (NEGATIVE); LEUKOCYTE ESTERASE ,URINE TRACE (NEGATIVE); NITRITE,URINE NEGATIVE (NEGATIVE); PH,URINE 5.5 (5-9); PROTEIN,URINE NEGATIVE (NEGATIVE)
[2022-11-17 13:39] LABS: ALBUMIN 4.3 GM/DL (3.2-4.5)
[2022-11-17 13:40] LABS: CALCIUM 9.7 MG/DL (8.5-10.1)
[2022-11-17 13:41] LABS: TOTAL PROTEIN 7.2 GM/DL (6.4-8.2)
[2022-11-17 13:42] LABS: AMORPHOUS SEDIMENT,UR RARE AMOR URATES /LPF; BACTERIA,URINE NEGATIVE /HPF; WBC,URINE 0-2 /HPF
[2022-11-17 13:43] LABS: BILIRUBIN,TOTAL 0.4 MG/DL (0.1-1.0)
[2022-11-17 13:45] LABS: CREATININE SERUM 0.81 MG/DL (0.60-1.30)
[2022-11-17] MEDS ORDERED: ONDANSETRON 4 MG/2 ML (SDV) Z0FRAN IVP ONE (13:45)
--- NOTE | 2022-11-17 13:45 | ED Abdominal Pain ---
General Chief Complaint: Abdominal/GI Problems Stated Complaint: DIZZINESS/VOMITING Nursing Triage Note: PT TO ED W/ CHRONIC ABD PAIN, N/V, WORSE FOR LAST 2-3 DAYS. NO OTHER C/O VOICED Source of Information: Patient Exam Limitations: No Limitations (KAREN HOLLEY APRN) History of Present Illness Date Seen by Provider: Nov 17, 2022 Time Seen by Provider: 13:27 Initial Comments 37-year-old female presents to the ER with complaints of her chronic abdominal issues and vomiting. She is complaining of pain in the epigastric and left upper quadrant since . She states she has vomited too many times to count. Thinks the last time she kept anything down was on Saturday. She also is complaining of feeling dizzy, off balance. She states that the pain in her abdomen is the same as it always is, denies any change in this pain. She has a long history of GI issues, she sees gastroenterology at . She denies fevers, chest pain, shortness of air. (KAREN HOLLEY APRN) Allergies and Home Medications Allergies Coded Allergies: morphine (Unverified Allergy, Mild, 11/17/22) meperidine (Verified Allergy, Unknown, 01/24/22) penicillin G (Verified Allergy, Unknown, 01/24/22) prochlorperazine (Verified Allergy, Unknown, 01/24/22) trimethobenzamide (Unverified Allergy, Unknown, 01/24/22) vancomycin (Verified Adverse Reaction, Intermediate, severe itching, 01/24/22) fentanyl (Verified Adverse Reaction, Unknown, HALLUCINATIONS, 02/27/22) Patient Home Medication List Home Medication List Reviewed: Yes (KAREN HOLLEY APRN) Acetaminophen (Tylenol Extra Strength) 500 Mg Tablet, 1,000 MG PO Q8H PRN for PAIN-MILD (1-4), (Reported) Entered as Reported by: EMILIO SHEPPARD on 10/26/19 0812 Albuterol Sulfate (Ventolin Hfa) 90 Mcg Hfa.aer.ad, 2 PUFF INH Q6H PRN for SHORTNESS OF BREATH, (Reported) Entered as Reported by: CASSANDRA CHOPRA on 02/15/22 1215 Albuterol Sulfate (Albuterol Sulfate) 2.5 Mg/3 Ml (0.083 %) Vial.neb, 3 ML PO Q8H PRN for SHORTNESS OF BREATH, (Reported) Entered as Reported by: CASSANDRA CHOPRA on 02/15/22 121 Amitriptyline HCl (Amitriptyline HCl) 10 Mg Tablet, 10 MG PO HS Prescribed by: CARMEN GIBBS on 03/01/22 1124 Atorvastatin Calcium (Atorvastatin Calcium) 40 Mg Tablet, 40 MG PO HS, (Reported) Entered as Reported by: CASSANDRA CHOPRA on 02/15/22 121 Cyanocobalamin (Cyanocobalamin Injection) 1,000 Mcg/Ml Inj, 1,000 MCG IM MONTHLY, (Reported) Entered as Reported by: GRIFFIN ORTEGA on 07/24/21 1145 Diphenhydramine HCl (Benadryl) 25 Mg Capsule, 50 MG PO HS, (Reported) Entered as Reported by: EMILIO SHEPPARD on 10/26/19 0812 Glycerin (Glycerin) Adult Supp.rect, 1 EACH RC DAILY PRN for CONSTIPATION Prescribed by: IZABELA MAC on 07/31/22 0238 Hydrocodone/Acetaminophen (Hydrocodone-Acetamin 5-325 mg) 5 Mg-325 Mg Tablet, 1 TAB PO Q6H PRN for PAIN-MODERATE (5-7), (Reported) Entered as Reported by: CASSANDRA CHOPRA on 02/15/22 121 Metoclopramide HCl (Reglan) 5 Mg Tablet, 5 MG PO Q6H PRN for NAUSEA/VOMITING Prescribed by: IZABELA MAC on 07/31/22 0238 Ondansetron (Ondansetron Odt) 8 Mg Tab.rapdis, 8 MG PO Q8H PRN for NAUSEA/VOMITING-1ST LINE, (Reported) Entered as Reported by: EMILIO SHEPPARD on 10/26/19 0812 Pantoprazole Sodium (Pantoprazole Sodium) 40 Mg Tablet.dr, 40 MG PO DAILY Prescribed by: CARMEN GIBBS on 03/01/22 112 Promethazine HCl (Promethazine Tablet) 25 Mg Tablet, 25 MG PO Q6H PRN for NAUSEA/VOMITING-2ND LINE, (Reported) Entered as Reported by: LEX HOSKINS on 12/07/20 0916 Ropinirole HCl (Ropinirole HCl) 4 Mg Tablet, 4 MG PO HS, (Reported) Entered as Reported by: LEX HOSKINS on 06/28/17 1010 Sitagliptin Phos/Metformin HCl (Janumet Xr 50-1,000 mg Tablet) 50 Mg-1,000 Mg Tbmp.24hr, 2 TAB PO HS, (Reported) Entered as Reported by: LEX HOSKINS on 12/07/20 0916 Sulfamethoxazole/Trimethoprim (Bactrim Ds Tablet) 1 Each Tablet, 1 EACH PO BID Prescribed by: Karen Holley on 10/28/22 2319 Review of Systems Review of Systems Constitutional: see HPI (KAREN HOLLEY APRN) Past Bwjvpwu-Zgwqhn-Ftwmzf Hx Immunizations Up To Date Tetanus Booster (TDap): Less than 5yrs PED Vaccines UTD: No First/Initial COVID19 Vaccinat: YES Second COVID19 Vaccination Alvaro: YES Third COVID19 Vaccination Date: YES (KAREN HOLLEY APRN) Seasonal Allergies Seasonal Allergies: No (KAREN HOLLEY APRN) Past Medical History Surgery/Hospitalization HX: several surgeries including 1 kidney removal, appendectomy, cammie., and power port placement, POWER PORT REMOVAL, HYSTERECTOMY pmh: pancreatitis, high chol, kidney ca, migraines, depression, sleep apnea, prediabetic Surgeries: Yes (hernia repair x2, knee scopes, port placement) Adenoidectomy, Appendectomy, Gallbladder, Hysterectomy, Nephrectomy, Orthopedic, Tonsillectomy Respiratory: Yes Asthma Currently Using CPAP: No Currently Using BIPAP: No Cardiac: Yes Hypertension Neurological: Yes Headaches /Migraines Reproductive Disorders: Yes (HX ENDOMETRIOSIS ) 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: 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 [employer] History: Hysterectomy Sexually Transmitted Disease: No HIV/AIDS: No Genitourinary: Yes (S/P LEFT NEPHRECTOMY) UTI-Chronic Gastrointestinal: Yes (CHRONIC ABD PAIN/N/V./D) Abdominal Hernia, Gastroesophageal Reflux, Liver Disease/Jaundice, Obstructive Bowel, Pancreatitis, Chronic Diarrhea, Polyps Musculoskeletal: Yes (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) Chronic Back Pain Endocrine: Yes (OBESITY) Diabetes, Non-Insulin dep HEENT: No Loss of Vision: Denies Hearing Impairment: Denies Cancer: Yes Kidney Did You Recieve Any Treatments: Yes What Type of Treatment Did You: Surgical Intervention Psychosocial: Yes Anxiety, Depression Integumentary: No Herpes Blood Disorders: No Adverse Reaction/Blood Tranf: No (N/A) (KAREN HOLLEY APRN) Family Medical History Cardiovascular disease 19 FATHER Completed stroke 19 FATHER Diabetes mellitus 19 FATHER Hypercholesterolemia 19 FATHER 19 MOTHER Hypertension 19 FATHER 19 MOTHER Neoplasm 19 MOTHER Psychosocial problem 19 FATHER 19 MOTHER No Pertinent Family Hx, Cancer, Diabetes, Hypertension PSH: -RIGHT KNEE SCOPE X 5 -LEFT KNEE SCOPE X 2 -TONSILLECTOMY / ADENOIDECTOMY -APPENDECTOMY -CHOLECYSTECTOMY -NASAL FRACTURE REPAIR -COCCYX REMOVAL -LEFT NEPHRECTOMY FOR MALIGNANCY -LEFT MID ABDOMEN INCISIONAL HERNIA REPAIR -DRAINAGE OF ABDOMINAL WALL ABSCESS -MULTIPLE EGD'S AND COLONOSCOPIES-- LAST ONE HERE 10/2019. HAD ONE 07/2022 AT -HYSTERECTOMY / BILATERAL SALPINGO-OOPHORECTOMY 2007 -06/23/20--RIGHT CHEST WALL/SHOULDER INJECTION FOR THORACIC OUTLET SYNDROME--DONE IN -PORT REMOVED FROM LEFT CHEST 07/24/21 FOR NON-FUNCTIONING PORT-BY DR. MARROQUIN (KAREN HOLLEY APRN) Physical Exam Vital Signs Vital Signs - First Documented 11/17/22 11/17/22 13:07 17:24 Temp 36.2 Pulse 94 Resp 20 B/P (MAP) 132/87 (102) Pulse Ox 97 O2 Delivery Room Air (IZABELA RENDON MD) Vital Signs Capillary Refill : Less Than 3 Seconds (KAREN HOLLEY APRN) Height/Weight/BMI Height: 5'3.00" Weight: 246lbs. 0oz. 111.269000xg; 46.00 BMI Method:Stated General Appearance: WD/WN, no apparent distress Neck: supple, normal inspection Respiratory: lungs clear, normal breath sounds, no respiratory distress, no accessory muscle use Cardiovascular: regular rate, rhythm Gastrointestinal: normal bowel sounds, non tender, soft Extremities: normal range of motion, normal inspection Neurologic/Psychiatric: alert, normal mood/affect Skin: normal color, warm/dry (KAREN HOLLEY APRN) Progress/Results/Core Measures Results/Orders Lab Results Laboratory Tests Test 11/17/22 13:10 11/17/22 13:23 Range/Units Urine Color YELLOW Urine Clarity CLEAR Urine pH 5.5 5-9 Urine Specific [place] >=1.030 1.016-1.022 Urine Protein NEGATIVE NEGATIVE Urine Glucose (UA) NEGATIVE NEGATIVE Urine Ketones NEGATIVE NEGATIVE Urine Nitrite NEGATIVE NEGATIVE Urine Bilirubin NEGATIVE NEGATIVE Urine Urobilinogen 0.2 < = 1.0 MG/DL Urine Leukocyte Esterase TRACE H NEGATIVE Urine RBC (Auto) NEGATIVE NEGATIVE Urine RBC NONE /HPF Urine WBC 0-2 /HPF Urine Squamous Epithelial Cells 2-5 /HPF Urine Crystals PRESENT H /LPF Urine Amorphous Sediment RARE HAMMAD URATES H /LPF Urine Bacteria NEGATIVE /HPF Urine Casts NONE /LPF Urine Mucus NEGATIVE /LPF Urine Culture Indicated NO White Blood Count 7.9 4.3-11.0 10^3/uL Red Blood Count 4.50 3.80-5.11 10^6/uL Hemoglobin 11.8 11.5-16.0 g/dL Hematocrit 37 35-52 % Mean Corpuscular Volume 82 80-99 fL Mean Corpuscular Hemoglobin 26 25-34 pg Mean Corpuscular Hemoglobin Concent 32 32-36 g/dL Red Cell Distribution Width 14.4 10.0-14.5 % Platelet Count 256 130-400 10^3/uL Mean Platelet Volume 9.5 9.0-12.2 fL Immature Granulocyte % (Auto) 0 % Neutrophils (%) (Auto) 57 42-75 % Lymphocytes (%) (Auto) 34 12-44 % Monocytes (%) (Auto) 5 0-12 % Eosinophils (%) (Auto) 3 0-10 % Basophils (%) (Auto) 1 0-10 % Neutrophils # (Auto) 4.5 1.8-7.8 10^3/uL Lymphocytes # (Auto) 2.7 1.0-4.0 10^3/uL Monocytes # (Auto) 0.4 0.0-1.0 10^3/uL Eosinophils # (Auto) 0.3 0.0-0.3 10^3/uL Basophils # (Auto) 0.0 0.0-0.1 10^3/uL Immature Granulocyte # (Auto) 0.0 0.0-0.1 10^3/uL Sodium Level 142 135-145 MMOL/L Potassium Level 4.0 3.6-5.0 MMOL/L Chloride Level 109 H 98-107 MMOL/L Carbon Dioxide Level 22 21-32 MMOL/L Anion Gap 11 5-14 MMOL/L Blood Urea Nitrogen 13 7-18 MG/DL Creatinine 0.81 0.60-1.30 MG/DL Estimat Glomerular Filtration Rate 95 BUN/Creatinine Ratio 16 Glucose Level 103 70-105 MG/DL Calcium Level 9.7 8.5-10.1 MG/DL Corrected Calcium 9.5 8.5-10.1 MG/DL Total Bilirubin 0.4 0.1-1.0 MG/DL Aspartate Amino Transf (AST/SGOT) 32 5-34 U/L Alanine Aminotransferase (ALT/SGPT) 37 0-55 U/L Alkaline Phosphatase 65 40-136 U/L Total Protein 7.2 6.4-8.2 GM/DL Albumin 4.3 3.2-4.5 GM/DL Amylase Level 61 25-125 U/L Lipase 55 8-78 U/L (IZABELA RENDON MD) Vital Signs/I&O 11/17/22 11/17/22 13:07 17:24 Temp 36.2 Pulse 94 80 Resp 20 16 B/P (MAP) 132/87 (102) 128/85 Pulse Ox 97 95 O2 Delivery Room Air 11/18/22 00:00 Intake Total 1000 ml Balance 1000 ml (IZABELA RENDON MD) Blood Pressure Mean: 102 Progress Progress Note : Progress Note Patient seen and evaluated, resting comfortably in bed, no acute distress. Based on exam and symptoms, work-up initiated including CBC, CMP, amylase, lipase. IV fluids and Zofran ordered. Labs reviewed.CBC grossly normal. CMP grossly normal, chloride slightly elevated 109. Urinalysis shows urine specific gravity greater than 1.030 trace leukocytes, 0-2 WBC, 2-5 squamous epithelial cells. Specimen appears to be contaminated. I am not concerned of a UTI at this time. Results discussed with patient. Patient reports continued nausea and worsening pain. Phenergan and morphine ordered. Patient reported itching and redness in arm after morphine was given. Benadryl given. Patient reports continued nausea after Benadryl. Reglan ordered. Patient finally reported improved nausea after Reglan. Patient is ready to go home. Discharge instructions and return precautions provided. (KAREN HOLLEY APRN) Departure Impression Primary Impression: Vomiting Qualified Codes: R11.10 - Vomiting, unspecified Disposition: 01 HOME, SELF-CARE Condition: Stable Departure-Patient Inst. Decision time for Depature: 16:50 (KAREN HOLLEY APRN) Referrals: CARMEN GIBBS MD (PCP/Family) Primary Care Physician Patient Instructions: Severe Abdominal Pain, Adult (DC) Add. Discharge Instructions: You can try taking your Reglan (metoclopramide) for your nausea. Follow-up with your GI specialist as well as your primary care provider. Return for severe abdominal pain, recurrent vomiting, or any other new, concerning, or worsening symptoms. All discharge instructions reviewed with patient and/or family. Voiced understanding. ATTENDING PHYSICIAN NOTE: I was physically present as attending physician in the emergency department during the care of this patient. I briefly discussed this patient with Karen Holley, SHERITA. Patient was struggling with persistent nausea after treatment with Zofran and Phenergan. I have had success with Reglan in treating this particular patient in the past as she has some degree of gastroparesis. I have recommended trying Reglan 5 mg IV and considering a prescription. I did not personally interview or examine this patient, nor was I otherwise directly involved in the decision making or delivery of care for this patient. (IZABELA RENDON MD) Copy Copies To 1: CARMEN GIBBS MD, BRITTANY R APRN Nov 17, 2022 13:45 IZABELA RENDON MD Nov 18, 2022 08:02
[2022-11-17] MEDS ORDERED: PROMETHAZINE INJ 25 MG/ML (PHENERGAN) AMP IVP ONE (14:45)
[2022-11-17] MEDS ORDERED: morphine INJ 4 MG/ML 1 ML (VIAL/SYRINGE) IVP ONE (15:15)
[2022-11-17] MEDS ORDERED: diphenhydrAMINE 50 MG/ML INJ (BENADRYL) IVP ONE (15:30)
[2022-11-17] MEDS ORDERED: diphenhydrAMINE 50 MG/ML INJ (BENADRYL) ONE (15:33)
[2022-11-17] MEDS ORDERED: METOCLOPRAMIDE INJ 10 MG/2 ML (REGLAN) IVP ONE (16:00)
[2022-11-17 17:24] VITALS: BP 128/85
== END 2022-11-17 17:24 | disposition home or self-care (01) ==
LOC: EDUNIT# 12:59 → ER 13:01
DX: R11.2 Nausea with vomiting, unspecified (principal); E66.9 Obesity, unspecified; Z68.42 Body mass index [BMI] 45.0-49.9, adult; Z90.49 Acquired absence of other specified parts of digestive tract; Z88.5 Allergy status to narcotic agent
CPT/HCPCS: 36415; 80053; 81000; 82150; 83690; 85025

== ENCOUNTER 2022-12-07 00:13 | Emergency (ER) | payer MEDICARE, MEDICAID ==
[~2022-12-07] VITALS: Ht 160 cm; Wt 120.0 kg
--- NOTE | 2022-12-07 00:41 | ED Abdominal Pain ---
General Chief Complaint: Abdominal/GI Problems Stated Complaint: NAUSEA,VOMITING,ABD PAIN Nursing Triage Note: C/O ABDOMINAL PAIN, WORSENED CHRONIC VOMITTING. REPORTS NAUSEA MEDICATIONS NOT WORKING. Source of Information: Patient Exam Limitations: No Limitations History of Present Illness Date Seen by Provider: Dec 07, 2022 Time Seen by Provider: 00:41 Initial Comments Patient is a 37-year-old female who presents to the emergency room with a chief complaint of diffuse abdominal pain, mostly located in the epigastric region and left lower quadrant in the area of prior hernia repair with mesh. Patient states that she had an appointment at yesterday. Shortly afterwards she started developing her nausea and vomiting and worsening pain. She took her home nausea medications without much relief of symptoms. She denies fevers or chills. No blood in her vomit. She is having normal bowel movements that are nonblack nonbloody. She states she has had a little dysuria in the last 2 or 3 days but had a urinalysis done at today that was negative. No abnormal vaginal discharge. No unusual swelling in her extremities. No rashes. She has tried multiple doses of Zofran at home and states that she reached the maximum that she could take and decided to come to the emergency room. Patient tells me that she can take fentanyl and morphine for pain if she has Benadryl with it. Timing/Duration: 12 Hours Severity/Quality: Severe, Cramping Location: Epigastric Radiation: LLQ Activities at Onset: None Modifying Factors: Worsens With Eating Associated Symptoms: Nausea/Vomiting Allergies and Home Medications Allergies Coded Allergies: morphine (Unverified Allergy, Mild, 11/17/22) meperidine (Verified Allergy, Unknown, 01/24/22) penicillin G (Verified Allergy, Unknown, 01/24/22) prochlorperazine (Verified Allergy, Unknown, 01/24/22) trimethobenzamide (Unverified Allergy, Unknown, 01/24/22) vancomycin (Verified Adverse Reaction, Intermediate, severe itching, 01/24/22) fentanyl (Verified Adverse Reaction, Unknown, HALLUCINATIONS, 02/27/22) Patient Home Medication List Home Medication List Reviewed: Yes Acetaminophen (Tylenol Extra Strength) 500 Mg Tablet, 1,000 MG PO Q8H PRN for PAIN-MILD (1-4), (Reported) Entered as Reported by: EMILIO SHEPPARD on 10/26/19 08 Albuterol Sulfate (Ventolin Hfa) 90 Mcg Hfa.aer.ad, 2 PUFF INH Q6H PRN for SHORTNESS OF BREATH, (Reported) Entered as Reported by: CASSANDRA CHOPRA on 02/15/22 121 Albuterol Sulfate (Albuterol Sulfate) 2.5 Mg/3 Ml (0.083 %) Vial.neb, 3 ML PO Q8H PRN for SHORTNESS OF BREATH, (Reported) Entered as Reported by: CASSANDRA CHOPRA on 02/15/22 121 Amitriptyline HCl (Amitriptyline HCl) 10 Mg Tablet, 10 MG PO HS Prescribed by: CARMEN GIBBS on 03/01/22 112 Atorvastatin Calcium (Atorvastatin Calcium) 40 Mg Tablet, 40 MG PO HS, (Reported ) Entered as Reported by: CASSANDRA CHOPRA on 02/15/22 121 Cyanocobalamin (Cyanocobalamin Injection) 1,000 Mcg/Ml Inj, 1,000 MCG IM MONTHLY, (Reported) Entered as Reported by: GRIFFIN ORTEGA on 07/24/21 1145 Diphenhydramine HCl (Benadryl) 25 Mg Capsule, 50 MG PO HS, (Reported) Entered as Reported by: EMILIO SHEPPARD on 10/26/19811 Glycerin (Glycerin) Adult Supp.rect, 1 EACH RC DAILY PRN for CONSTIPATION Prescribed by: IZABELA MAC on 07/31/22 0238 Hydrocodone/Acetaminophen (Hydrocodone-Acetamin 5-325 mg) 5 Mg-325 Mg Tablet, 1 TAB PO Q6H PRN for PAIN-MODERATE (5-7), (Reported) Entered as Reported by: CASSANDRA CHOPRA on 02/15/22 121 Metoclopramide HCl (Reglan) 5 Mg Tablet, 5 MG PO Q6H PRN for NAUSEA/VOMITING Prescribed by: IZABELA MAC on 07/31/22 023 Ondansetron (Ondansetron Odt) 8 Mg Tab.rapdis, 8 MG PO Q8H PRN for NAUSEA/VOMITING-1ST LINE, (Reported) Entered as Reported by: EMILIO SHEPPARD on 10/26/19811 Pantoprazole Sodium (Pantoprazole Sodium) 40 Mg Tablet.dr, 40 MG PO DAILY Prescribed by: CARMEN GIBBS on 03/01/22 1124 Promethazine HCl (Promethazine Tablet) 25 Mg Tablet, 25 MG PO Q6H PRN for NAUSEA/VOMITING-2ND LINE, (Reported) Entered as Reported by: LEX HOSKINS on 12/07/20 0916 Ropinirole HCl (Ropinirole HCl) 4 Mg Tablet, 4 MG PO HS, (Reported) Entered as Reported by: LEX HOSKINS on 06/28/17 1010 Sitagliptin Phos/Metformin HCl (Janumet Xr 50-1,000 mg Tablet) 50 Mg-1,000 Mg Tbmp.24hr, 2 TAB PO HS, (Reported) Entered as Reported by: LEX HOSKINS on 12/07/20 0916 Sulfamethoxazole/Trimethoprim (Bactrim Ds Tablet) 1 Each Tablet, 1 EACH PO BID Prescribed by: Karen Garvey on 10/28/22 2319 Review of Systems Review of Systems Constitutional: see HPI, malaise EENTM: No Symptoms Reported Respiratory: No Symptoms Reported Cardiovascular: No Symptoms Reported Gastrointestinal: Abdominal Pain, Nausea, Poor Appetite, Poor Fluid Intake, Vomiting Genitourinary: Burning Musculoskeletal: no symptoms reported Skin: no symptoms reported Psychiatric/Neurological: No Symptoms Reported All Other Systems Reviewed Negative Unless Noted: Yes Past Yjopuwa-Thctmt-Gdymtm Hx Patient Social History Tobacco Use?: No Substance use?: No Alcohol Use?: No Pt feels they are or have been: No Immunizations Up To Date Tetanus Booster (TDap): Less than 5yrs PED Vaccines UTD: No First/Initial COVID19 Vaccinat: x2 Second COVID19 Vaccination Alvaro: YES Third COVID19 Vaccination Date: YES Seasonal Allergies Seasonal Allergies: No Past Medical History Surgery/Hospitalization HX: LEFT NEPHRECTOMY, APPENDECTOMY, CHOLECYSTECTOMY, HYSTERECTOMY, HERNIA, T/A PANCREATITIS, ASTHMA, HEADACHE, GERD, LIVER DISEASE, CH. 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 [employer] History: Hysterectomy Sexually Transmitted Disease: No HIV/AIDS: No Genitourinary: Yes (S/P LEFT NEPHRECTOMY) UTI-Chronic Gastrointestinal: Yes (CHRONIC ABD PAIN/N/V./D) Abdominal Hernia, Gastroesophageal Reflux, Liver Disease/Jaundice, Obstructive Bowel, Pancreatitis, Chronic Diarrhea, Polyps Musculoskeletal: Yes (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) Chronic Back Pain Endocrine: Yes (OBESITY) Diabetes, Non-Insulin dep HEENT: No Loss of Vision: Denies Hearing Impairment: Denies Cancer: Yes Kidney Did You Recieve Any Treatments: Yes What Type of Treatment Did You: Surgical Intervention Psychosocial: Yes Anxiety, Depression Integumentary: No Herpes Blood Disorders: No Adverse Reaction/Blood Tranf: No (N/A) Family Medical History Cardiovascular disease 19 FATHER Completed stroke 19 FATHER Diabetes mellitus 19 FATHER Hypercholesterolemia 19 FATHER 19 MOTHER Hypertension 19 FATHER 19 MOTHER Neoplasm 19 MOTHER Psychosocial problem 19 FATHER 19 MOTHER No Pertinent Family Hx, Cancer, Diabetes, Hypertension PSH: -RIGHT KNEE SCOPE X 5 -LEFT KNEE SCOPE X 2 -TONSILLECTOMY / ADENOIDECTOMY -APPENDECTOMY -CHOLECYSTECTOMY -NASAL FRACTURE REPAIR -COCCYX REMOVAL -LEFT NEPHRECTOMY FOR MALIGNANCY -LEFT MID ABDOMEN INCISIONAL HERNIA REPAIR -DRAINAGE OF ABDOMINAL WALL ABSCESS -MULTIPLE EGD'S AND COLONOSCOPIES-- LAST ONE HERE 10/2019. HAD ONE 07/2022 AT -HYSTERECTOMY / BILATERAL SALPINGO-OOPHORECTOMY 2007 -06/23/20--RIGHT CHEST WALL/SHOULDER INJECTION FOR THORACIC OUTLET SYNDROME--DONE IN -PORT REMOVED FROM LEFT CHEST 07/24/21 FOR NON-FUNCTIONING PORT-BY DR. MARROQUIN Physical Exam Vital Signs Vital Signs - First Documented 12/07/22 00:22 Temp 37.1 Pulse 103 Resp 18 B/P (MAP) 179/126 (143) Pulse Ox 97 O2 Delivery Room Air Capillary Refill : Less Than 3 Seconds Height/Weight/BMI Height: 5'3.00" Weight: 246lbs. 0oz. 111.757382hs; 46.00 BMI Method:Stated General Appearance: WD/WN, mild distress, obese HEENT: PERRL/EOMI Respiratory: lungs clear, normal breath sounds, no respiratory distress, no accessory muscle use Cardiovascular: regular rate, rhythm, tachycardia (105) Gastrointestinal: soft, abnormal bowel sounds (hypoactive), tenderness (mild epigastric tenderness) Extremities: normal range of motion, normal inspection, normal capillary refill Neurologic/Psychiatric: alert, normal mood/affect, oriented x 3 Skin: normal color, warm/dry Progress/Results/Core Measures Results/Orders Lab Results Laboratory Tests Test 12/07/22 01:12 Range/Units Sodium Level 142 135-145 MMOL/L Potassium Level 4.6 3.6-5.0 MMOL/L Chloride Level 109 H 98-107 MMOL/L Carbon Dioxide Level 21 21-32 MMOL/L Anion Gap 12 5-14 MMOL/L Blood Urea Nitrogen 10 7-18 MG/DL Creatinine 0.80 0.60-1.30 MG/DL Estimat Glomerular Filtration Rate 97 BUN/Creatinine Ratio 13 Glucose Level 105 70-105 MG/DL Calcium Level 9.2 8.5-10.1 MG/DL Corrected Calcium 9.1 8.5-10.1 MG/DL Magnesium Level 1.9 1.6-2.4 MG/DL Total Bilirubin 0.3 0.1-1.0 MG/DL Aspartate Amino Transf (AST/SGOT) 56 H 5-34 U/L Alanine Aminotransferase (ALT/SGPT) 40 0-55 U/L Alkaline Phosphatase 68 40-136 U/L Total Protein 7.5 6.4-8.2 GM/DL Albumin 4.1 3.2-4.5 GM/DL Lipase 43 8-78 U/L My Orders Orders - GEO BORJA MD Ed Iv/Invasive Line Start (12/07/22 00:58) Comprehensive Metabolic Panel (12/07/22 00:58) Lipase (12/07/22 00:58) Magnesium (12/07/22 00:58) Lactated Ringers (Lr 1000 Ml Iv Solution (12/07/22 01:00) Fentanyl Inj (Sublimaze Injection) (12/07/22 01:00) Diphenhydramine Injection (Benadryl Inje (12/07/22 01:00) Metoclopramide Injection (Reglan Injecti (12/07/22 01:00) Diphenhydramine Injection (Benadryl Inje (12/07/22 01:08) Metoclopramide Injection (Reglan Injecti (12/07/22 01:09) Lactated Ringers (Lr 1000 Ml Iv Solution (12/07/22 01:09) Fentanyl Inj (Sublimaze Injection) (12/07/22 01:09) Medications Given in ED Current Medications Medications Dose Ordered Sig/Neal Route Start Time Stop Time Status Last Admin Dose Admin Diphenhydramine HCl 25 mg ONCE ONCE IVP 12/07/22 01:00 12/07/22 01:01 DC 12/07/22 01:21 25 MG Fentanyl Citrate 50 mcg ONCE ONCE IVP 12/07/22 01:00 12/07/22 01:01 DC 12/07/22 01:22 50 MCG Metoclopramide HCl 10 mg ONCE ONCE IVP 12/07/22 01:00 12/07/22 01:01 DC 12/07/22 01:21 10 MG Vital Signs/I&O 12/07/22 12/07/22 12/07/22 00:22 01:22 01:29 Temp 37.1 37.1 Pulse 103 94 Resp 18 B/P (MAP) 179/126 (143) 148/95 (112) Pulse Ox 97 93 O2 Delivery Room Air Room Air Blood Pressure Mean: 143 Progress Progress Note : Time: 02:25 Progress Note Patient seen and examined by me. Evaluation today includes physical exam, comprehensive metabolic panel with lipase. Physical exam pertinent for morbidly obese female in no acute distress. Diffuse mild tenderness without rebound or guarding in the abdomen. Heart is regular, tachycardic, lungs are clear. No focal neurologic deficits. Vital signs are stable. Differential diagnosis based on history and physical exam, acute on chronic pancreatitis, dehydration, hypokalemia, acute kidney injury. Labs independently reviewed and interpreted by me, chemistry is completely within normal limits. Normal lipase, normal potassium, normal renal function. This is especially important in light of a history of nephrectomy due to renal cell cancer. Patient is treated in the emergency department with lactated Ringer's, 10 of Reglan, 25 of Benadryl, 4 of morphine. Reevaluated at this time and states that she is feeling much better. She states that she has a little bit of nausea left but would like to be discharged home. She states she has medication for further nausea at home and will follow up with [facility] tomorrow. No clinical or objective findings to warrant further studies from the emergency department. Consideration for CAT scan of the abdomen and pelvis however history and physical exam do not support the need at this time. Patient declines any further medication. Return precautions provided in both verbal and written format. All questions are sought and answered. Patient stable for discharge Departure Impression Primary Impression: Nausea and vomiting Qualified Codes: R11.14 - Bilious vomiting Additional Impression: Epigastric pain Disposition: HOME, SELF-CARE Condition: Improved Departure-Patient Inst. Decision time for Depature: 02:27 Referrals: CARMEN GIBBS MD (PCP/Family) Primary Care Physician Patient Instructions: Nausea and Vomiting, Adult ED Add. Discharge Instructions: Continue your daily medications as prescribed. Use your nausea medications as needed. Follow a clear liquid diet in the morning and then slowly advance your diet as tolerated throughout the day tomorrow. Follow-up with [facility] as scheduled. Return to the emergency department for any new, concerning or emergent complaints. Copy Copies To 1: CARMEN GIBBS MD, KATHRYN M MD Dec 07, 2022 00:41
[2022-12-07] MEDS ORDERED: METOCLOPRAMIDE INJ 10 MG/2 ML (REGLAN) IVP ONE (01:00)
[2022-12-07] MEDS ORDERED: LACTATED RINGERS 1,000 ML IV SCH (01:00)
[2022-12-07] MEDS ORDERED: diphenhydrAMINE 50 MG/ML INJ (BENADRYL) IVP ONE (01:00)
[2022-12-07] MEDS ORDERED: fentaNYL INJ 100 MCG/2 ML AMP IVP ONE (01:00)
[2022-12-07] MEDS ORDERED: diphenhydrAMINE 50 MG/ML INJ (BENADRYL) ONE (01:08)
[2022-12-07] MEDS ORDERED: LACTATED RINGERS 1,000 ML IV ONE (01:09)
[2022-12-07] MEDS ORDERED: fentaNYL INJ 100 MCG/2 ML AMP ONE (01:09)
[2022-12-07] MEDS ORDERED: METOCLOPRAMIDE INJ 10 MG/2 ML (REGLAN) ONE (01:09)
[2022-12-07 01:44] LABS: ALBUMIN 4.1 GM/DL (3.2-4.5)
[2022-12-07 01:45] LABS: POTASSIUM 4.6 MMOL/L (3.6-5.0)
[2022-12-07 01:46] LABS: CALCIUM 9.2 MG/DL (8.5-10.1)
[2022-12-07 01:47] LABS: TOTAL PROTEIN 7.5 GM/DL (6.4-8.2)
[2022-12-07 01:49] LABS: BILIRUBIN,TOTAL 0.3 MG/DL (0.1-1.0)
[2022-12-07 01:50] LABS: CREATININE SERUM 0.8 MG/DL (0.60-1.30)
[2022-12-07 01:53] LABS: MAGNESIUM 1.9 MG/DL (1.6-2.4)
[2022-12-07 02:31] VITALS: BP 143/94
== END 2022-12-07 02:33 | disposition home or self-care (01) ==
LOC: EDUNIT# 00:13 → ER 00:16
DX: R11.2 Nausea with vomiting, unspecified (principal); R10.13 Epigastric pain; E66.9 Obesity, unspecified; Z68.42 Body mass index [BMI] 45.0-49.9, adult; Z90.5 Acquired absence of kidney; Z87.19 Personal history of other diseases of the digestive system; Z90.49 Acquired absence of other specified parts of digestive tract; Z98.890 Other specified postprocedural states; Z88.5 Allergy status to narcotic agent
CPT/HCPCS: 36415; 80053; 83690; 83735

== ENCOUNTER 2022-12-19 16:09 | Emergency (ER) | payer MEDICARE, MEDICAID ==
[~2022-12-19] VITALS: Ht 160 cm; Wt 117.0 kg
[2022-12-19] MEDS ORDERED: NS IV 1000 ML 1,000 ML IV STA (16:26)
--- NOTE | 2022-12-19 16:29 | ED Abdominal Pain ---
General Chief Complaint: Abdominal/GI Problems Stated Complaint: N/V Nursing Triage Note: N/V SINCE SATURDAY. SENT OUT FROM THE CLINIC. PT STATES SHE TAKES 3 DIFFERENT NAUSEA MEDS. Source of Information: Patient Exam Limitations: No Limitations History of Present Illness Date Seen by Provider: Dec 19, 2022 Time Seen by Provider: 16:27 Initial Comments Patient is a 37-year-old female who presents to the ED for nausea vomiting and abdominal pain. Nausea vomiting started on Saturday. She states she cannot count how meantime she has vomit. She reports upper abdominal crampy pain that is constant since Saturday. She reports nausea. Has been sipping on water to stay hydrated. She states she does feel dehydrated. No diarrhea. She reports history of pancreatitis. She denies chest pain, cough, shortness of breath. She reports taking medication for gastritis. She denies fever, chills, body aches, headache, sore throat. Patient has been taken Zofran and Phenergan at home. Allergies and Home Medications Allergies Coded Allergies: morphine (Unverified Allergy, Mild, 11/17/22) meperidine (Verified Allergy, Unknown, 01/24/22) penicillin G (Verified Allergy, Unknown, 01/24/22) prochlorperazine (Verified Allergy, Unknown, 01/24/22) trimethobenzamide (Unverified Allergy, Unknown, 01/24/22) vancomycin (Verified Adverse Reaction, Intermediate, severe itching, 01/24/22) fentanyl (Verified Adverse Reaction, Unknown, HALLUCINATIONS, 02/27/22) Patient Home Medication List Home Medication List Reviewed: Yes Acetaminophen (Tylenol Extra Strength) 500 Mg Tablet, 1,000 MG PO Q8H PRN for PAIN-MILD (1-4), (Reported) Entered as Reported by: EMILIO SHEPPARD on 10/26/19 0812 Albuterol Sulfate (Ventolin Hfa) 90 Mcg Hfa.aer.ad, 2 PUFF INH Q6H PRN for SHORTNESS OF BREATH, (Reported) Entered as Reported by: CASSANDRA CHOPRA on 02/15/22 1215 Albuterol Sulfate (Albuterol Sulfate) 2.5 Mg/3 Ml (0.083 %) Vial.neb, 3 ML PO Q8H PRN for SHORTNESS OF BREATH, (Reported) Entered as Reported by: CASSANDRA CHOPRA on 02/15/22 1215 Amitriptyline HCl (Amitriptyline HCl) 10 Mg Tablet, 10 MG PO HS Prescribed by: CARMEN GIBBS on 03/01/22 1124 Atorvastatin Calcium (Atorvastatin Calcium) 40 Mg Tablet, 40 MG PO HS, (Repo rted) Entered as Reported by: CASSANDRA CHOPRA on 02/15/22 1215 Cyanocobalamin (Cyanocobalamin Injection) 1,000 Mcg/Ml Inj, 1,000 MCG IM MONTHLY, (Reported) Entered as Reported by: GRIFFIN ORTEGA on 07/24/21 1145 Diphenhydramine HCl (Benadryl) 25 Mg Capsule, 50 MG PO HS, (Reported) Entered as Reported by: EMILIO SHEPPADR on 10/26/19 0812 Glycerin (Glycerin) Adult Supp.rect, 1 EACH RC DAILY PRN for CONSTIPATION Prescribed by: IZABELA MAC on 07/31/22 0238 Hydrocodone/Acetaminophen (Hydrocodone-Acetamin 5-325 mg) 5 Mg-325 Mg Tablet, 1 TAB PO Q6H PRN for PAIN-MODERATE (5-7), (Reported) Entered as Reported by: CASSANDRA CHOPRA on 02/15/22 1215 Metoclopramide HCl (Reglan) 5 Mg Tablet, 5 MG PO Q6H PRN for NAUSEA/VOMITING Prescribed by: IZABELA MAC on 07/31/22 0238 Ondansetron (Ondansetron Odt) 8 Mg Tab.rapdis, 8 MG PO Q8H PRN for NAUSEA/VOMITING-1ST LINE, (Reported) Entered as Reported by: EMILIO SHEPPARD on 10/26/19 0812 Pantoprazole Sodium (Pantoprazole Sodium) 40 Mg Tablet.dr, 40 MG PO DAILY Prescribed by: CARMEN GIBBS on 03/01/22 1124 Promethazine HCl (Promethazine Tablet) 25 Mg Tablet, 25 MG PO Q6H PRN for NAUSEA/VOMITING-2ND LINE, (Reported) Entered as Reported by: LEX HOSKINS on 12/07/20 0916 Ropinirole HCl (Ropinirole HCl) 4 Mg Tablet, 4 MG PO HS, (Reported) Entered as Reported by: LEX HOSKINS on 06/28/17 1010 Sitagliptin Phos/Metformin HCl (Janumet Xr 50-1,000 mg Tablet) 50 Mg-1,000 Mg Tbmp.24hr, 2 TAB PO HS, (Reported) Entered as Reported by: LEX HOSKINS on 12/07/20 0916 Sulfamethoxazole/Trimethoprim (Bactrim Ds Tablet) 1 Each Tablet, 1 EACH PO BID Prescribed by: Karen Garvey on 10/28/22 4459 Review of Systems Review of Systems Constitutional: No chills, No diaphoresis, No malaise, No weakness EENTM: No Eye Pain Respiratory: Denies Cough Cardiovascular: Denies Chest Pain Gastrointestinal: Abdominal Pain, Nausea, Vomiting Genitourinary: Denies Discharge, Denies Drainage, Denies Frequency Musculoskeletal: No back pain, No joint pain Skin: No change in color All Other Systems Reviewed Negative Unless Noted: Yes Past Hsketfj-Wakbjb-Lvfygo Hx Patient Social History Tobacco Use?: No Substance use?: No Alcohol Use?: No Immunizations Up To Date Tetanus Booster (TDap): Less than 5yrs PED Vaccines UTD: No First/Initial COVID19 Vaccinat: x2 Second COVID19 Vaccination Alvaro: YES Third COVID19 Vaccination Date: YES Seasonal Allergies Seasonal Allergies: No Past Medical History Surgery/Hospitalization HX: LEFT NEPHRECTOMY, APPENDECTOMY, CHOLECYSTECTOMY, HYSTERECTOMY, HERNIA, T/A PANCREATITIS, ASTHMA, HEADACHE, GERD, LIVER DISEASE, CH. 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 Sexually Transmitted Disease: No HIV/AIDS: No Genitourinary: Yes (S/P LEFT NEPHRECTOMY) UTI-Chronic Gastrointestinal: Yes (CHRONIC ABD PAIN/N/V./D) Abdominal Hernia, Gastroesophageal Reflux, Liver Disease/Jaundice, Obstructive Bowel, Pancreatitis, Chronic Diarrhea, Polyps Musculoskeletal: Yes (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) Chronic Back Pain Endocrine: Yes (OBESITY) Diabetes, Non-Insulin dep HEENT: No Loss of Vision: Denies Hearing Impairment: Denies Cancer: Yes Kidney Did You Recieve Any Treatments: Yes What Type of Treatment Did You: Surgical Intervention Psychosocial: Yes Anxiety, Depression Integumentary: No Herpes Blood Disorders: No Adverse Reaction/Blood Tranf: No (N/A) Family Medical History Cardiovascular disease 19 FATHER Completed stroke 19 FATHER Diabetes mellitus 19 FATHER Hypercholesterolemia 19 FATHER 19 MOTHER Hypertension 19 FATHER 19 MOTHER Neoplasm 19 MOTHER Psychosocial problem 19 FATHER 19 MOTHER No Pertinent Family Hx, Cancer, Diabetes, Hypertension PSH: -RIGHT KNEE SCOPE X 5 -LEFT KNEE SCOPE X 2 -TONSILLECTOMY / ADENOIDECTOMY -APPENDECTOMY -CHOLECYSTECTOMY -NASAL FRACTURE REPAIR -COCCYX REMOVAL -LEFT NEPHRECTOMY FOR MALIGNANCY -LEFT MID ABDOMEN INCISIONAL HERNIA REPAIR -DRAINAGE OF ABDOMINAL WALL ABSCESS -MULTIPLE EGD'S AND COLONOSCOPIES-- LAST ONE HERE 10/2019. HAD ONE 07/2022 AT -HYSTERECTOMY / BILATERAL SALPINGO-OOPHORECTOMY 2007 -06/23/20--RIGHT CHEST WALL/SHOULDER INJECTION FOR THORACIC OUTLET SYNDROME--DONE IN -PORT REMOVED FROM LEFT CHEST 07/24/21 FOR NON-FUNCTIONING PORT-BY DR. MARROQUIN Physical Exam Vital Signs Vital Signs - First Documented 12/19/22 16:16 Temp 36.7 Pulse 104 Resp 16 B/P (MAP) 140/96 (111) Pulse Ox 98 O2 Delivery Room Air Capillary Refill : Less Than 3 Seconds Height/Weight/BMI Height: 5'3.00" Weight: 246lbs. 0oz. [id number]; 45.00 BMI Method:Stated General Appearance: WD/WN, no apparent distress HEENT: PERRL/EOMI, normal ENT inspection, TMs normal, pharynx normal Neck: non-tender, full range of motion, supple Respiratory: chest non-tender, lungs clear, normal breath sounds, no respiratory distress, no accessory muscle use Cardiovascular: no edema, no gallop, no JVD, tachycardia Gastrointestinal: normal bowel sounds, soft, no organomegaly, no pulsatile mass, tenderness (epiGastric tenderness) Extremities: normal range of motion, non-tender, normal inspection, no pedal edema Back: normal inspection, no CVA tenderness, no vertebral tenderness 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, no motor/sensory deficits, alert, normal mood/affect, oriented x 3 Skin: normal color, warm/dry Progress/Results/Core Measures Results/Orders Lab Results Laboratory Tests Test 12/19/22 16:35 Range/Units White Blood Count 8.6 4.3-11.0 10^3/uL Red Blood Count 4.76 3.80-5.11 10^6/uL Hemoglobin 12.5 11.5-16.0 g/dL Hematocrit 39 35-52 % Mean Corpuscular Volume 82 80-99 fL Mean Corpuscular Hemoglobin 26 25-34 pg Mean Corpuscular Hemoglobin Concent 32 32-36 g/dL Red Cell Distribution Width 14.0 10.0-14.5 % Platelet Count 265 130-400 10^3/uL Mean Platelet Volume 9.6 9.0-12.2 fL Immature Granulocyte % (Auto) 0 % Neutrophils (%) (Auto) 56 42-75 % Lymphocytes (%) (Auto) 36 12-44 % Monocytes (%) (Auto) 4 0-12 % Eosinophils (%) (Auto) 3 0-10 % Basophils (%) (Auto) 1 0-10 % Neutrophils # (Auto) 4.8 1.8-7.8 10^3/uL Lymphocytes # (Auto) 3.1 1.0-4.0 10^3/uL Monocytes # (Auto) 0.3 0.0-1.0 10^3/uL Eosinophils # (Auto) 0.3 0.0-0.3 10^3/uL Basophils # (Auto) 0.0 0.0-0.1 10^3/uL Immature Granulocyte # (Auto) 0.0 0.0-0.1 10^3/uL Sodium Level 140 135-145 MMOL/L Potassium Level 3.5 L 3.6-5.0 MMOL/L Chloride Level 105 98-107 MMOL/L Carbon Dioxide Level 21 21-32 MMOL/L Anion Gap 14 5-14 MMOL/L Blood Urea Nitrogen 9 7-18 MG/DL Creatinine 0.81 0.60-1.30 MG/DL Estimat Glomerular Filtration Rate 95 BUN/Creatinine Ratio 11 Glucose Level 166 H 70-105 MG/DL Calcium Level 9.5 8.5-10.1 MG/DL Corrected Calcium 9.2 8.5-10.1 MG/DL Total Bilirubin 0.4 0.1-1.0 MG/DL Aspartate Amino Transf (AST/SGOT) 36 H 5-34 U/L Alanine Aminotransferase (ALT/SGPT) 41 0-55 U/L Alkaline Phosphatase 73 40-136 U/L Total Protein 7.6 6.4-8.2 GM/DL Albumin 4.4 3.2-4.5 GM/DL Lipase 61 8-78 U/L My Orders Orders - LYSSA MORALES Cbc With Automated Diff (12/19/22 16:26) Comprehensive Metabolic Panel (12/19/22 16:26) Lipase (12/19/22 16:26) Ns Iv 1000 Ml (Sodium Chloride 0.9%) (12/19/22 16:26) Ondansetron Injection (Zofran Injectio (12/19/22 16:30) Promethazine Injection (Phenergan Injec (12/19/22 17:15) Medications Given in ED Current Medications Medications Dose Ordered Sig/Neal Route Start Time Stop Time Status Last Admin Dose Admin Ondansetron HCl 4 mg ONCE ONCE IVP 12/19/22 16:30 12/19/22 16:31 DC 12/19/22 16:42 4 MG Promethazine HCl 25 mg ONCE ONCE IVP 12/19/22 17:15 12/19/22 17:16 DC 12/19/22 17:19 25 MG Vital Signs/I&O 12/19/22 16:16 Temp 36.7 Pulse 104 Resp 16 B/P (MAP) 140/96 (111) Pulse Ox 98 O2 Delivery Room Air Blood Pressure Mean: 111 Departure Communication (PCP) Patient is a 37-year-old female who presents ED with upper abdominal pain. Similar type pain in the past and has been evaluated in the past. She states she has been vomiting since Saturday. She feels dehydrated. Upper abdominal pain. She states she is on a PPI which she cannot recall. Zofran and Phenergan at home. CBC, CMP, lipase and started on a liter of fluid. She was slightly tachycardic. Upper abdominal tenderness. No chest pain or shortness of breath. CBC, CMP grossly unremarkable. Glucose 166. Potassium 3.5. she states she has been urinating without any difficulties. Lipase normal. Normal kidney function liver function. She did receive a liter of fluid with Zofran and Phen ergan. She is tolerating p.o. fluids without any difficulties. She is requesting to be discharged. Patient vital signs are stable. She does not appear toxic or septic. Improvement of her tachycardia. Patient feels comfortable to be discharged home. Due to improvement of pain patient will be discharged. No evidence of surgical abdomen. Recommend Pedialyte at home. Recommend PPI. Discussed diet changes. Recommend following up with your GI Impression Primary Impression: Abdominal pain Disposition: HOME, SELF-CARE Condition: Stable Departure-Patient Inst. Decision time for Depature: 17:42 Referrals: CARMEN GIBBS MD (PCP/Family) Primary Care Physician Patient Instructions: Abdominal Pain, Adult ED LYSSA MORALES Dec 19, 2022 16:29
[2022-12-19] MEDS ORDERED: ONDANSETRON 4 MG/2 ML (SDV) Z0FRAN IVP ONE (16:30)
[2022-12-19 16:45] LABS: BASOPHILS % (AUTO) 1 % (0-10); EOSINOPHILS # (AUTO) 0.3 10^3/uL (0.0-0.3); EOSINOPHILS % (AUTO) 3 % (0-10); HEMATOCRIT 39 % (35-52); HEMOGLOBIN 12.5 g/dL (11.5-16.0); LYMPHOCYTES # (AUTO) 3.1 10^3/uL (1.0-4.0); LYMPHOCYTES % (AUTO) 36 % (12-44); MEAN CORPUSCULAR HEMOGLOBIN 26 pg (25-34); MEAN CORPUSCULAR HGB CONC 32 g/dL (32-36); MEAN CORPUSCULAR VOLUME 82 fL (80-99); MEAN PLATELET VOLUME 9.6 fL (9.0-12.2); MONOCYTES # (AUTO) 0.3 10^3/uL (0.0-1.0); MONOCYTES % (AUTO) 4 % (0-12); NEUTROPHILS # (AUTO) 4.8 10^3/uL (1.8-7.8); NEUTROPHILS % (AUTO) 56 % (42-75); PLATELET COUNT 265 10^3/uL (130-400); WHITE BLOOD COUNT 8.6 10^3/uL (4.3-11.0)
[2022-12-19 16:54] LABS: ALBUMIN 4.4 GM/DL (3.2-4.5); POTASSIUM 3.5 MMOL/L (3.6-5.0)
[2022-12-19 16:55] LABS: CALCIUM 9.5 MG/DL (8.5-10.1)
[2022-12-19 16:56] LABS: TOTAL PROTEIN 7.6 GM/DL (6.4-8.2)
[2022-12-19 16:58] LABS: BILIRUBIN,TOTAL 0.4 MG/DL (0.1-1.0)
[2022-12-19 17:00] LABS: CREATININE SERUM 0.81 MG/DL (0.60-1.30)
[2022-12-19] MEDS ORDERED: PROMETHAZINE INJ 25 MG/ML (PHENERGAN) AMP IVP ONE (17:15)
[2022-12-19 17:50] VITALS: BP 144/88
== END 2022-12-19 17:50 | disposition home or self-care (01) ==
LOC: EDUNIT# 16:09 → ER 16:09
DX: R10.10 Upper abdominal pain, unspecified (principal); R11.2 Nausea with vomiting, unspecified; R00.0 Tachycardia, unspecified; K29.70 Gastritis, unspecified, without bleeding; E66.9 Obesity, unspecified; Z68.42 Body mass index [BMI] 45.0-49.9, adult; Z79.899 Other long term (current) drug therapy; Z98.890 Other specified postprocedural states; Z90.49 Acquired absence of other specified parts of digestive tract
CPT/HCPCS: 36415; 80053; 83690; 85025

== ENCOUNTER 2022-12-28 19:47 | Emergency (ER) | payer MEDICARE, MEDICAID ==
[~2022-12-28] VITALS: Ht 160 cm; Wt 120.0 kg
[2022-12-28 19:53] VITALS: BP 110/78
[2022-12-28] MEDS ORDERED: METOCLOPRAMIDE INJ 10 MG/2 ML (REGLAN) IM ONE (20:00)
--- NOTE | 2022-12-28 20:04 | ED Abdominal Pain ---
General Chief Complaint: Abdominal/GI Problems Stated Complaint: VOMITING Source of Information: Patient Exam Limitations: No Limitations (LYSSA MORALES) History of Present Illness Date Seen by Provider: Dec 28, 2022 Time Seen by Provider: 20:02 Initial Comments Patient is a 37-year-old female with a history of pancreatitis, gastritis who presents ED with upper abdominal cramping. This started 2 hours ago. Started having vomiting with 6-7 episodes of nonbilious vomiting. Last bowel movement was earlier today. She started feeling nauseous yesterday and dry heaving this morning. She took her Phenergan and Zofran this evening without much improvement. Similar type pain in the past. 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 There was talk for potential feeding tube. Patient denies of any chest pain, cough, shortness of breath, headache, dizziness, sore throat, ear pain. She states today's pain feels very similar to her previous visits. She did report some pain with urination today without frequent urination, flank pain, vaginal bleeding. (LYSSA MORALES) Allergies and Home Medications Allergies Coded Allergies: morphine (Unverified Allergy, Mild, 11/17/22) meperidine (Verified Allergy, Unknown, 01/24/22) penicillin G (Verified Allergy, Unknown, 01/24/22) prochlorperazine (Verified Allergy, Unknown, 01/24/22) trimethobenzamide (Unverified Allergy, Unknown, 01/24/22) vancomycin (Verified Adverse Reaction, Intermediate, severe itching, 01/24/22) fentanyl (Verified Adverse Reaction, Unknown, HALLUCINATIONS, 02/27/22) Patient Home Medication List Home Medication List Reviewed: Yes (LYSSA MORALES) Acetaminophen (Tylenol Extra Strength) 500 Mg Tablet, 1,000 MG PO Q8H PRN for PAIN-MILD (1-4), (Reported) Entered as Reported by: EMILIO SHEPPARD on 10/26/19 0812 Albuterol Sulfate (Ventolin Hfa) 90 Mcg Hfa.aer.ad, 2 PUFF INH Q6H PRN for SHORTNESS OF BREATH, (Reported) Entered as Reported by: CASSANDRA CHOPRA on 02/15/22 1215 Albuterol Sulfate (Albuterol Sulfate) 2.5 Mg/3 Ml (0.083 %) Vial.neb, 3 ML PO Q8H PRN for SHORTNESS OF BREATH, (Reported) Entered as Reported by: CASSANDRA CHOPRA on 02/15/22 121 Amitriptyline HCl (Amitriptyline HCl) 10 Mg Tablet, 10 MG PO HS Prescribed by: CARMEN GIBBS on 03/01/22 112 Atorvastatin Calcium (Atorvastatin Calcium) 40 Mg Tablet, 40 MG PO HS, (Reported) Entered as Reported by: CASSANDRA CHOPRA on 02/15/22 121 Cephalexin (Cephalexin) 500 Mg Tablet, 500 MG PO BID Prescribed by: ULI GARNER on 12/28/222055 Cyanocobalamin (Cyanocobalamin Injection) 1,000 Mcg/Ml Inj, 1,000 MCG IM MONTHLY, (Reported) Entered as Reported by: GRIFFIN ORTEGA on 07/24/21 114 Diphenhydramine HCl (Benadryl) 25 Mg Capsule, 50 MG PO HS, (Reported) Entered as Reported by: EMILIO SHEPPARD on 10/26/19 08 Glycerin (Glycerin) Adult Supp.rect, 1 EACH RC DAILY PRN for CONSTIPATION Prescribed by: IZABELA MAC on 07/31/22 0238 Hydrocodone/Acetaminophen (Hydrocodone-Acetamin 5-325 mg) 5 Mg-325 Mg Tablet, 1 TAB PO Q6H PRN for PAIN-MODERATE (5-7), (Reported) Entered as Reported by: CASSANDRA CHOPRA on 02/15/22 121 Metoclopramide HCl (Reglan) 5 Mg Tablet, 5 MG PO Q6H PRN for NAUSEA/VOMITING Prescribed by: IZABELA MAC on 07/31/22 0238 Ondansetron (Ondansetron Odt) 8 Mg Tab.rapdis, 8 MG PO Q8H PRN for NAUSEA/VOMITING-1ST LINE, (Reported) Entered as Reported by: EMILIO SHEPPARD on 10/26/19 08 Pantoprazole Sodium (Pantoprazole Sodium) 40 Mg Tablet.dr, 40 MG PO DAILY Prescribed by: CARMEN GIBBS on 03/01/22 112 Promethazine HCl (Promethazine Tablet) 25 Mg Tablet, 25 MG PO Q6H PRN for NAUSEA/VOMITING-2ND LINE, (Reported) Entered as Reported by: LEX HOSKINS on 12/07/20 0916 Ropinirole HCl (Ropinirole HCl) 4 Mg Tablet, 4 MG PO HS, (Reported) Entered as Reported by: LEX HOSKINS on 06/28/17 1010 Sitagliptin Phos/Metformin HCl (Janumet Xr 50-1,000 mg Tablet) 50 Mg-1,000 Mg Tbmp.24hr, 2 TAB PO HS, (Reported) Entered as Reported by: LEX HOSKINS on 12/07/20 0916 Sulfamethoxazole/Trimethoprim (Bactrim Ds Tablet) 1 Each Tablet, 1 EACH PO BID Prescribed by: Karen Garvey on 10/28/22 8829 Review of Systems Review of Systems Constitutional: No chills, No diaphoresis, No malaise, No weakness EENTM: No Double Vision, No Eye Pain, No Ear Pain, No Mouth Pain, No Mouth Swelling Respiratory: Denies Cough Cardiovascular: Denies Chest Pain, Denies Palpitations Gastrointestinal: Abdominal Pain; Denies Constipated, Denies Diarrhea; Nausea, Vomiting Genitourinary: Burning; Denies Discharge, Denies Drainage, Denies Frequency; Pain Musculoskeletal: No back pain, No joint pain Skin: No change in color, No change in hair/nails Psychiatric/Neurological: Denies Anxiety (LYSSA MORALES) All Other Systems Reviewed Negative Unless Noted: Yes (LYSSA MORALES) Past Nptuxrx-Tisfpn-Cfvheh Hx Patient Social History Tobacco Use?: No Substance use?: No Alcohol Use?: No Pt feels they are or have been: No (LYSSA MORALES) Immunizations Up To Date Tetanus Booster (TDap): Less than 5yrs PED Vaccines UTD: No First/Initial COVID19 Vaccinat: x2 Second COVID19 Vaccination Alvaro: YES Third COVID19 Vaccination Date: YES (LYSSA MORALES) Seasonal Allergies Seasonal Allergies: No (LYSSA MORALES) Past Medical History Surgery/Hospitalization HX: LEFT NEPHRECTOMY, APPENDECTOMY, CHOLECYSTECTOMY, HYSTERECTOMY, HERNIA, T/A PANCREATITIS, ASTHMA, HEADACHE, GERD, LIVER DISEASE, CH. 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 History: Hysterectomy Sexually Transmitted Disease: No HIV/AIDS: No Genitourinary: Yes (S/P LEFT NEPHRECTOMY) UTI-Chronic Gastrointestinal: Yes (CHRONIC ABD PAIN/N/V./D) Abdominal Hernia, Gastroesophageal Reflux, Liver Disease/Jaundice, Obstructive Bowel, Pancreatitis, Chronic Diarrhea, Polyps Musculoskeletal: Yes (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) Chronic Back Pain Endocrine: Yes (OBESITY) Diabetes, Non-Insulin dep HEENT: No Loss of Vision: Denies Hearing Impairment: Denies Cancer: Yes Kidney Did You Recieve Any Treatments: Yes What Type of Treatment Did You: Surgical Intervention Psychosocial: Yes Anxiety, Depression Integumentary: No Herpes Blood Disorders: No Adverse Reaction/Blood Tranf: No (N/A) (LYSSA MORALES) Family Medical History Cardiovascular disease 19 FATHER Completed stroke 19 FATHER Diabetes mellitus 19 FATHER Hypercholesterolemia 19 FATHER 19 MOTHER Hypertension 19 FATHER 19 MOTHER Neoplasm 19 MOTHER Psychosocial problem 19 FATHER 19 MOTHER No Pertinent Family Hx, Cancer, Diabetes, Hypertension PSH: -RIGHT KNEE SCOPE X 5 -LEFT KNEE SCOPE X 2 -TONSILLECTOMY / ADENOIDECTOMY -APPENDECTOMY -CHOLECYSTECTOMY -NASAL FRACTURE REPAIR -COCCYX REMOVAL -LEFT NEPHRECTOMY FOR MALIGNANCY -LEFT MID ABDOMEN INCISIONAL HERNIA REPAIR -DRAINAGE OF ABDOMINAL WALL ABSCESS -MULTIPLE EGD'S AND COLONOSCOPIES-- LAST ONE HERE 10/2019. HAD ONE 07/2022 AT -HYSTERECTOMY / BILATERAL SALPINGO-OOPHORECTOMY 2007 -06/23/20--RIGHT CHEST WALL/SHOULDER INJECTION FOR THORACIC OUTLET SYNDROME--DONE IN -PORT REMOVED FROM LEFT CHEST 07/24/21 FOR NON-FUNCTIONING PORT-BY DR. MARROQUIN (LYSSA MORALES) Physical Exam Vital Signs Vital Signs - First Documented 12/28/22 19:53 Temp 36.6 Pulse 95 Resp 18 B/P (MAP) 110/78 (89) Pulse Ox 98 O2 Delivery Room Air (SHANKAR,YAN Vickey GAMING) Vital Signs Capillary Refill : (LYSSA MORALES) Height/Weight/BMI Height: 5'3.00" Weight: 246lbs. 0oz. 111.844720kd; 45.00 BMI Method:Stated General Appearance: WD/WN, no apparent distress HEENT: PERRL/EOMI, normal ENT inspection, TMs normal, pharynx normal Neck: non-tender, full range of motion, supple, normal inspection Respiratory: chest non-tender, lungs clear, normal breath sounds, no respiratory distress, no accessory muscle use Cardiovascular: regular rate, rhythm, no edema, no gallop, no JVD Gastrointestinal: normal bowel sounds, soft, no organomegaly, tenderness (Epi gastric tenderness. 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, no motor/sensory deficits, alert, normal mood/affect, oriented x 3 Skin: normal color, warm/dry (LYSSA MORALES) Progress/Results/Core Measures Results/Orders Lab Results Laboratory Tests Test 12/28/22 20:11 12/28/22 20:22 Range/Units Urine Color YELLOW Urine Clarity CLEAR Urine pH 6.0 5-9 Urine Specific [place] >=1.030 1.016-1.022 Urine Protein TRACE H NEGATIVE Urine Glucose (UA) NEGATIVE NEGATIVE Urine Ketones NEGATIVE NEGATIVE Urine Nitrite NEGATIVE NEGATIVE Urine Bilirubin NEGATIVE NEGATIVE Urine Urobilinogen 1.0 < = 1.0 MG/DL Urine Leukocyte Esterase 2+ H NEGATIVE Urine RBC (Auto) NEGATIVE NEGATIVE Urine RBC 0-2 /HPF Urine WBC 25-50 H /HPF Urine Squamous Epithelial Cells 10-25 H /HPF Urine Crystals NONE /LPF Urine Bacteria TRACE /HPF Urine Casts NONE /LPF Urine Mucus SMALL H /LPF Urine Culture Indicated YES White Blood Count 9.6 4.3-11.0 10^3/uL Red Blood Count 4.50 3.80-5.11 10^6/uL Hemoglobin 11.9 11.5-16.0 g/dL Hematocrit 37 35-52 % Mean Corpuscular Volume 82 80-99 fL Mean Corpuscular Hemoglobin 26 25-34 pg Mean Corpuscular Hemoglobin Concent 32 32-36 g/dL Red Cell Distribution Width 14.1 10.0-14.5 % Platelet Count 257 130-400 10^3/uL Mean Platelet Volume 9.4 9.0-12.2 fL Immature Granulocyte % (Auto) 0 % Neutrophils (%) (Auto) 61 42-75 % Lymphocytes (%) (Auto) 32 12-44 % Monocytes (%) (Auto) 4 0-12 % Eosinophils (%) (Auto) 2 0-10 % Basophils (%) (Auto) 1 0-10 % Neutrophils # (Auto) 5.9 1.8-7.8 10^3/uL Lymphocytes # (Auto) 3.1 1.0-4.0 10^3/uL Monocytes # (Auto) 0.4 0.0-1.0 10^3/uL Eosinophils # (Auto) 0.2 0.0-0.3 10^3/uL Basophils # (Auto) 0.1 0.0-0.1 10^3/uL Immature Granulocyte # (Auto) 0.0 0.0-0.1 10^3/uL Sodium Level 140 135-145 MMOL/L Potassium Level 4.0 3.6-5.0 MMOL/L Chloride Level 105 98-107 MMOL/L Carbon Dioxide Level 21 21-32 MMOL/L Anion Gap 14 5-14 MMOL/L Blood Urea Nitrogen 14 7-18 MG/DL Creatinine 0.94 0.60-1.30 MG/DL Estimat Glomerular Filtration Rate 80 BUN/Creatinine Ratio 15 Glucose Level 144 H 70-105 MG/DL Calcium Level 10.0 8.5-10.1 MG/DL Corrected Calcium 9.6 8.5-10.1 MG/DL Total Bilirubin 0.6 0.1-1.0 MG/DL Aspartate Amino Transf (AST/SGOT) 40 H 5-34 U/L Alanine Aminotransferase (ALT/SGPT) 40 0-55 U/L Alkaline Phosphatase 73 40-136 U/L Total Protein 7.7 6.4-8.2 GM/DL Albumin 4.5 3.2-4.5 GM/DL Lipase 56 8-78 U/L (SHANKAR,YAN K DO) Medications Given in ED Current Medications Medications Dose Ordered Sig/Neal Route Start Time Stop Time Status Last Admin Dose Admin Metoclopramide HCl 10 mg ONCE ONCE IM 7/14/23 20:00 12/28/22 20:02 DC 12/28/22 20:06 10 MG (YAN CHAPARRO DO) Vital Signs/I&O 12/28/22 19:53 Temp 36.6 Pulse 95 Resp 18 B/P (MAP) 110/78 (89) Pulse Ox 98 O2 Delivery Room Air (YAN CHAPARRO DO) Departure Communication (PCP) Reviewed previous ER visits, H&P, lab testing. Patient presents ED with upper abdominal cramping with nausea and vomiting. Bowel movement earlier today. Similar type pain in the past. Reviewed multiple ER visits and lab work. Due to her current complaint CBC, CMP, lipase and urinalysis. Urinalysis questionably urinary tract infection. Positive leukocytes and white blood cells. Will discharge with Keflex as she is currently having urinary symptoms. Previous urine cultures were contamination. CBC, CMP, lipase grossly unremarkable. Received IM Reglan with resolution of nausea. No vomiting here. She does not appear dehydrated. Moist mucous membranes. Recommend follow-up with your GI specialist for further evaluation. Continue with your PPI. Continue with your nausea medication. Recommend clear liquid diet for the next 2 or 3 days. If any worsening symptoms return back to ED for further evaluation. Patient agrees with plan of action. (LYSSA MORALES) Impression Primary Impression: Nausea and vomiting Disposition: 01 HOME, SELF-CARE Condition: Stable Departure-Patient Inst. Decision time for Depature: 20:55 (LYSSA MORALES) Referrals: CARMEN GIBBS MD (PCP/Family) Primary Care Physician Patient Instructions: Nausea and Vomiting, Adult ED Add. Discharge Instructions: Antibiotics for UTI. Continue with your nausea medication. Follow-up your GI specialist for further evaluation. All discharge instructions reviewed with patient and/or family. Voiced understanding. Scripts Cephalexin (Cephalexin) 500 Mg Tablet 500 MG PO BID for 7 Days, #14 TAB Prov: LYSSA MORALES 12/28/22 ATTENDING PHYSICIAN NOTE: I WAS PHYSICALLY PRESENT ER PHYSICIAN, BUT I WAS NOT INVOLVED IN ANY DECISION MAKING OR ANY CARE OF THIS PATIENT, AND I AM NOT COLLABORATING PHYSICIAN. (YAN CHAPARRO DO) LYSSA MORALES Dec 28, 2022 20:04 YAN CHAPARRO DO Dec 28, 2022 22:28
[2022-12-28 20:16] LABS: BILIRUBIN,URINE NEGATIVE (NEGATIVE); CLARITY,URINE CLEAR; COLOR,URINE YELLOW; GLUCOSE, URINE (UA) NEGATIVE (NEGATIVE); KETONES,URINE NEGATIVE (NEGATIVE); LEUKOCYTE ESTERASE ,URINE 2+ (NEGATIVE); NITRITE,URINE NEGATIVE (NEGATIVE); PROTEIN,URINE TRACE (NEGATIVE)
[2022-12-28 20:30] LABS: BASOPHILS # (AUTO) 0.1 10^3/uL (0.0-0.1); BASOPHILS % (AUTO) 1 % (0-10); EOSINOPHILS # (AUTO) 0.2 10^3/uL (0.0-0.3); EOSINOPHILS % (AUTO) 2 % (0-10); HEMATOCRIT 37 % (35-52); HEMOGLOBIN 11.9 g/dL (11.5-16.0); LYMPHOCYTES # (AUTO) 3.1 10^3/uL (1.0-4.0); LYMPHOCYTES % (AUTO) 32 % (12-44); MEAN CORPUSCULAR HEMOGLOBIN 26 pg (25-34); MEAN CORPUSCULAR HGB CONC 32 g/dL (32-36); MEAN CORPUSCULAR VOLUME 82 fL (80-99); MEAN PLATELET VOLUME 9.4 fL (9.0-12.2); MONOCYTES # (AUTO) 0.4 10^3/uL (0.0-1.0); MONOCYTES % (AUTO) 4 % (0-12); NEUTROPHILS # (AUTO) 5.9 10^3/uL (1.8-7.8); NEUTROPHILS % (AUTO) 61 % (42-75); PLATELET COUNT 257 10^3/uL (130-400); WHITE BLOOD COUNT 9.6 10^3/uL (4.3-11.0)
[2022-12-28 20:37] LABS: BACTERIA,URINE TRACE /HPF; RBC,URINE 0-2 /HPF; WBC,URINE 25-50 /HPF
[2022-12-28 20:48] LABS: ALBUMIN 4.5 GM/DL (3.2-4.5); BILIRUBIN,TOTAL 0.6 MG/DL (0.1-1.0); CREATININE SERUM 0.94 MG/DL (0.60-1.30); TOTAL PROTEIN 7.7 GM/DL (6.4-8.2)
[2022-12-28] MEDS ORDERED: CEPH500T PO (20:56)
== END 2022-12-28 21:07 | disposition home or self-care (01) ==
LOC: EDUNIT# 19:47 → ER 19:49
DX: R11.2 Nausea with vomiting, unspecified (principal); D72.829 Elevated white blood cell count, unspecified; E66.9 Obesity, unspecified; Z88.0 Allergy status to penicillin; Z68.42 Body mass index [BMI] 45.0-49.9, adult
CPT/HCPCS: 36415; 80053; 81000; 83690; 85025; 87088; 99284

== ENCOUNTER 2023-02-05 20:20 | Emergency (ER) | payer MEDICARE, MEDICAID ==
[~2023-02-05 20:20] MED LIST changes: -DIATRIZOATE MEGLUM/SODIUM 37% 120 ML (GASTROGRAFIN) PO ONE; -SULF-221 PO
--- NOTE | 2023-02-05 20:44 | ED Abdominal Pain ---
General Chief Complaint: Abdominal/GI Problems Stated Complaint: ABDOMINAL PAIN WITH TUBE Source of Information: Patient Exam Limitations: No Limitations History of Present Illness Date Seen by Provider: Feb 05, 2023 Time Seen by Provider: 20:40 Initial Comments Patient is a 37-year-old female who presents ED with abdominal pain. Patient states pain is located around her feeding tube, upper abdomen, lower abdomen. Pain started on Saturday. Pain is described as sharp pain that radiates to the back and constant. Patient had a feeding tube placed by Maryse Sandoval surgeon at [facility] 1 week ago. Patient states that she had a x-ray performed today with contrast to check for feeding tube placement. She reports some purulent drainage around the feeding tube over the past 2 days. She denies of any vomiting or diarrhea. She has been using water and supplement feeding but states she is having too much pain. She denies any fever, chills, nausea, vomiting, diarrhea. She denies abdominal distention. Allergies and Home Medications Allergies Coded Allergies: morphine (Unverified Allergy, Mild, 11/17/22) meperidine (Verified Allergy, Unknown, 01/24/22) penicillin G (Verified Allergy, Unknown, 01/24/22) prochlorperazine (Verified Allergy, Unknown, 01/24/22) trimethobenzamide (Unverified Allergy, Unknown, 01/24/22) vancomycin (Verified Adverse Reaction, Intermediate, severe itching, 01/24/22) fentanyl (Verified Adverse Reaction, Unknown, HALLUCINATIONS, 02/27/22) Patient Home Medication List Home Medication List Reviewed: Yes Acetaminophen (Tylenol Extra Strength) 500 Mg Tablet, 1,000 MG PO Q8H PRN for PAIN-MILD (1-4), (Reported) Entered as Reported by: EMILIO SHEPPARD on 10/26/19 0812 Albuterol Sulfate (Ventolin Hfa) 90 Mcg Hfa.aer.ad, 2 PUFF INH Q6H PRN for SHORTNESS OF BREATH, (Reported) Entered as Reported by: CASSANDRA CHOPRA on 02/15/22 1215 Albuterol Sulfate (Albuterol Sulfate) 2.5 Mg/3 Ml (0.083 %) Vial.neb, 3 ML PO Q8H PRN for SHORTNESS OF BREATH, (Reported) Entered as Reported by: CASSANDRA CHOPRA on 02/15/22 1215 Amitriptyline HCl (Amitriptyline HCl) 10 Mg Tablet, 10 MG PO HS Prescribed by: CARMEN GIBBS on 03/01/22 112 Atorvastatin Calcium (Atorvastatin Calcium) 40 Mg Tablet, 40 MG PO HS, (Reported) Entered as Reported by: CASSANDRA CHOPRA on 02/15/22 121 Cephalexin (Cephalexin) 500 Mg Tablet, 500 MG PO BID Prescribed by: ULI GARNER on 12/28/222055 Cyanocobalamin (Cyanocobalamin Injection) 1,000 Mcg/Ml Inj, 1,000 MCG IM MONTHLY, (Reported) Entered as Reported by: GRIFFIN ORTEGA on 07/24/21 114 Diphenhydramine HCl (Benadryl) 25 Mg Capsule, 50 MG PO HS, (Reported) Entered as Reported by: EMILIO SHEPPARD on 10/26/19 0812 Glycerin (Glycerin) Adult Supp.rect, 1 EACH RC DAILY PRN for CONSTIPATION Prescribed by: IZABELA MAC on 07/31/22 0238 Hydrocodone/Acetaminophen (Hydrocodone-Acetamin 5-325 mg) 5 Mg-325 Mg Tablet, 1 TAB PO Q6H PRN for PAIN-MODERATE (5-7), (Reported) Entered as Reported by: CASSANDRA CHOPRA on 02/15/22 121 Metoclopramide HCl (Reglan) 5 Mg Tablet, 5 MG PO Q6H PRN for NAUSEA/VOMITING Prescribed by: IZABELA MAC on 07/31/22 0238 Ondansetron (Ondansetron Odt) 8 Mg Tab.rapdis, 8 MG PO Q8H PRN for NAUSEA/VOMITING-1ST LINE, (Reported) Entered as Reported by: EMILIO SHEPPARD on 10/26/19 0812 Pantoprazole Sodium (Pantoprazole Sodium) 40 Mg Tablet.dr, 40 MG PO DAILY Prescribed by: CARMEN GIBBS on 03/01/22 112 Promethazine HCl (Promethazine Tablet) 25 Mg Tablet, 25 MG PO Q6H PRN for NAUSEA/VOMITING-2ND LINE, (Reported) Entered as Reported by: LEX HOSKINS on 12/07/20 0916 Ropinirole HCl (Ropinirole HCl) 4 Mg Tablet, 4 MG PO HS, (Reported) Entered as Reported by: LEX HOSKINS on 06/28/17 1010 Sitagliptin Phos/Metformin HCl (Janumet Xr 50-1,000 mg Tablet) 50 Mg-1,000 Mg Tbmp.24hr, 2 TAB PO HS, (Reported) Entered as Reported by: LEX HOSKINS on 12/07/20 0916 Sulfamethoxazole/Trimethoprim (Bactrim Ds Tablet) 1 Each Tablet, 1 EACH PO BID Prescribed by: Karen Garvey on 10/28/22 2319 Sulfamethoxazole/Trimethoprim (Bactrim Ds Tablet) 800 Mg-160 Mg Tablet, 1 EACH PO BID Prescribed by: ULI GARNER on 02/05/23 2210 Review of Systems Review of Systems Constitutional: No chills, No diaphoresis EENTM: No Blurred Vision, No Double Vision, No Eye Pain Respiratory: Denies Cough, Denies Orthopnea Cardiovascular: Denies Chest Pain Gastrointestinal: Abdominal Pain; Denies Nausea, Denies Vomiting Genitourinary: Denies Burning Musculoskeletal: No back pain, No gout Skin: No change in color, No change in hair/nails All Other Systems Reviewed Negative Unless Noted: Yes Past Fhkgmvg-Gkgeip-Idgxjh Hx Patient Social History Tobacco Use?: No Substance use?: No Alcohol Use?: No Immunizations Up To Date Tetanus Booster (TDap): Less than 5yrs PED Vaccines UTD: No First/Initial COVID19 Vaccinat: x2 Second COVID19 Vaccination Alvaro: x2 Third COVID19 Vaccination Date: x2 Seasonal Allergies Seasonal Allergies: No Past Medical History Surgery/Hospitalization HX: LEFT NEPHRECTOMY, APPENDECTOMY, CHOLECYSTECTOMY, HYSTERECTOMY, HERNIA, T/A PANCREATITIS, ASTHMA, HEADACHE, GERD, LIVER DISEASE, CH. 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 History: Hysterectomy Sexually Transmitted Disease: No HIV/AIDS: No Genitourinary: Yes (S/P LEFT NEPHRECTOMY) UTI-Chronic Gastrointestinal: Yes (CHRONIC ABD PAIN/N/V./D) Abdominal Hernia, Gastroesophageal Reflux, Liver Disease/Jaundice, Obstructive Bowel, Pancreatitis, Chronic Diarrhea, Polyps Musculoskeletal: Yes (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) Chronic Back Pain Endocrine: Yes (OBESITY) Diabetes, Non-Insulin dep HEENT: No Loss of Vision: Denies Hearing Impairment: Denies Cancer: Yes Kidney Did You Recieve Any Treatments: Yes What Type of Treatment Did You: Surgical Intervention Psychosocial: Yes Anxiety, Depression Integumentary: No Herpes Blood Disorders: No Adverse Reaction/Blood Tranf: No (N/A) Family Medical History Cardiovascular disease 19 FATHER Completed stroke 19 FATHER Diabetes mellitus 19 FATHER Hypercholesterolemia 19 FATHER 19 MOTHER Hypertension 19 FATHER 19 MOTHER Neoplasm 19 MOTHER Psychosocial problem 19 FATHER 19 MOTHER No Pertinent Family Hx, Cancer, Diabetes, Hypertension PSH: -RIGHT KNEE SCOPE X 5 -LEFT KNEE SCOPE X 2 -TONSILLECTOMY / ADENOIDECTOMY -APPENDECTOMY -CHOLECYSTECTOMY -NASAL FRACTURE REPAIR -COCCYX REMOVAL -LEFT NEPHRECTOMY FOR MALIGNANCY -LEFT MID ABDOMEN INCISIONAL HERNIA REPAIR -DRAINAGE OF ABDOMINAL WALL ABSCESS -MULTIPLE EGD'S AND COLONOSCOPIES-- LAST ONE HERE 10/2019. HAD ONE 07/2022 AT -HYSTERECTOMY / BILATERAL SALPINGO-OOPHORECTOMY 2007 -06/23/20--RIGHT CHEST WALL/SHOULDER INJECTION FOR THORACIC OUTLET SYNDROME--DONE IN -PORT REMOVED FROM LEFT CHEST 07/24/21 FOR NON-FUNCTIONING PORT-BY DR. MARROQUIN Physical Exam Vital Signs Vital Signs - First Documented 02/05/23 02/05/23 20:28 22:28 Temp 37.4 Pulse 107 Resp 16 B/P (MAP) 177/103 (127) Pulse Ox 97 O2 Delivery Room Air Capillary Refill : Height/Weight/BMI Height: 5'3.00" Weight: 246lbs. 0oz. [id number]; 46.00 BMI Method:Stated General Appearance: WD/WN, no apparent distress HEENT: PERRL/EOMI, normal ENT inspection, TMs normal, pharynx normal Neck: non-tender, full range of motion, supple Respiratory: chest non-tender, lungs clear, normal breath sounds, no respiratory distress, no accessory muscle use Cardiovascular: regular rate, rhythm, no edema, no gallop, no JVD Gastrointestinal: normal bowel sounds, soft, no organomegaly, no pulsatile mass, tenderness (Epigastric, lower abdominal tenderness. Normal bowel sounds throughout. 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, no motor/sensory deficits, alert, normal mood/affect, oriented x 3 Skin: other (Purulent drainage around the feeding tube.) Progress/Results/Core Measures Results/Orders Lab Results Laboratory Tests Test 02/05/23 20:50 Range/Units White Blood Count 11.7 H 4.3-11.0 10^3/uL Red Blood Count 4.47 3.80-5.11 10^6/uL Hemoglobin 11.7 11.5-16.0 g/dL Hematocrit 38 35-52 % Mean Corpuscular Volume 85 80-99 fL Mean Corpuscular Hemoglobin 26 25-34 pg Mean Corpuscular Hemoglobin Concent 31 L 32-36 g/dL Red Cell Distribution Width 14.4 10.0-14.5 % Platelet Count 305 130-400 10^3/uL Mean Platelet Volume 9.5 9.0-12.2 fL Immature Granulocyte % (Auto) 1 % Neutrophils (%) (Auto) 64 42-75 % Lymphocytes (%) (Auto) 27 12-44 % Monocytes (%) (Auto) 6 0-12 % Eosinophils (%) (Auto) 2 0-10 % Basophils (%) (Auto) 0 0-10 % Neutrophils # (Auto) 7.5 1.8-7.8 10^3/uL Lymphocytes # (Auto) 3.2 1.0-4.0 10^3/uL Monocytes # (Auto) 0.7 0.0-1.0 10^3/uL Eosinophils # (Auto) 0.3 0.0-0.3 10^3/uL Basophils # (Auto) 0.0 0.0-0.1 10^3/uL Immature Granulocyte # (Auto) 0.1 0.0-0.1 10^3/uL Sodium Level 140 135-145 MMOL/L Potassium Level 4.0 3.6-5.0 MMOL/L Chloride Level 103 98-107 MMOL/L Carbon Dioxide Level 24 21-32 MMOL/L Anion Gap 13 5-14 MMOL/L Blood Urea Nitrogen 15 7-18 MG/DL Creatinine 0.86 0.60-1.30 MG/DL Estimat Glomerular Filtration Rate 89 BUN/Creatinine Ratio 17 Glucose Level 103 70-105 MG/DL Calcium Level 9.5 8.5-10.1 MG/DL Corrected Calcium 9.2 8.5-10.1 MG/DL Total Bilirubin 0.7 0.1-1.0 MG/DL Aspartate Amino Transf (AST/SGOT) 32 5-34 U/L Alanine Aminotransferase (ALT/SGPT) 33 0-55 U/L Alkaline Phosphatase 85 40-136 U/L Total Protein 7.8 6.4-8.2 GM/DL Albumin 4.4 3.2-4.5 GM/DL Lipase 69 8-78 U/L My Orders Orders - LYSSA MORALES Cbc With Automated Diff (02/05/23 20:38) Comprehensive Metabolic Panel (02/05/23 20:38) Lipase (02/05/23 20:38) Ct Abdomen/Pelvis W (02/05/23 20:38) Iohexol Injection (Omnipaque 350 Mg/Ml 1 (02/05/23 20:45) Received Contrast (Hold Metformin- Contr (02/05/23 20:45) Ns (Ivpb) 100 Ml (Sodium Chloride 0.9% 1 (02/05/23 20:45) Ns Iv 1000 Ml (Sodium Chloride 0.9%) (02/05/23 21:19) Ketorolac Injection (Ketorolac Injection (02/05/23 21:45) Sulfamethoxazole/Trimet Ds Tab (Bactrim (02/05/23 22:08) Medications Given in ED Vital Signs/I&O 02/05/23 02/05/23 20:28 22:28 Temp 37.4 37.4 Pulse 107 91 Resp 16 16 B/P (MAP) 177/103 (127) 117/59 Pulse Ox 97 97 O2 Delivery Room Air 02/06/23 00:00 Intake Total 1000 ml Balance 1000 ml Departure Communication (PCP) Reviewed previous ER visits, H&P, lab testing. History of chronic abdominal pain. History of delayed gastric emptying. History of pancreatitis. Had a G- tube placed by Dr. Sandoval at [facility] 1 week ago. Since then she has had continuous pain post surgery. She reports pain around her tube site. She has noted some purulent drainage around the tube. Does not appear to be food content. Patient has been using her G-tube with 30 ml water and tube feeding twice a day. Increasing pain today. On arrival she is afebrile with stable vital signs. Attempting to differentiate chronic pain versus new pain at this time. She did have an x-ray performed today with contrast through her G-tube which showed proper placement. She did have some purulent drainage around the tube suggesting potential cellulitis. Mild localized erythema around the tube but appears to post surgical healing. She does have some crusting around the tube site which could be more skin irritation vs infection. She denies applying any topical ointment around the tube. Due to her recent procedure CBC, CMP, lipase was ordered. CBC showed slight elevated white blood count 11.7. Chemistry grossly unremarkable. Received a dose of fentanyl for pain. CT abdomen pelvis was ordered to rule out any potential postop complications such as abscess. CT abdomen pelvis shows fat stranding within the soft tissue of the upper abdomen suggesting cellulitis. This could be result of her pain. Small bowel containing ventral hernia no bowel obstruction. Postsurgical changes from prior left nephrectomy. No hydronephrosis or nephrolithiasis. Since patient is 1 week postop consulted with [facility] bariatric surgery staff. Consulted with Dr. Cunningham bariatric surgeon on-call for Dr. Sandoval. Reviewed patient's lab work, imaging and presentation. Suggest starting on antibiotic at this time. Suggest not removing or switching the G-tube at this time. She is allergic to penicillins as initially recommended Augmentin. We will switch to Bactrim. Discussed cleaning around the tube with warm water. Suggest using some Vaseline to prevent skin irritation. She states she has been having this continued pain post surgery which could be more chronic versus postsurgery pain. No evidence of anything surgical at this time. She has a scheduled follow-up with her bariatric surgeon on Saturday. Is recommended follow-up at that visit. Continue with your feedings. She able to take oral medication. Will discharge with Bactrim. If increased redness or swelling to the abdominal wall to return back to ED. Impression Primary Impression: Abdominal pain Additional Impression: Abdominal wall cellulitis Disposition: 01 HOME, SELF-CARE Condition: Stable Departure-Patient Inst. Decision time for Depature: 22:09 Referrals: CARMEN GIBBS MD (PCP/Family) Primary Care Physician Patient Instructions: Cellulitis (Skin Infection), Adult (DC) Scripts Sulfamethoxazole/Trimethoprim (Bactrim Ds Tablet) 800 Mg-160 Mg Tablet 1 EACH PO BID for 7 Days, #14 TAB Prov: LYSSA MORALES 02/05/23 LYSSA MORALES Feb 05, 2023 20:44
[2023-02-05] MEDS ORDERED: IOHEXOL 350 MG/ML 100 ML (OMNIPAQUE 350) VIAL IV ONE (20:45)
[2023-02-05] MEDS ORDERED: NS 100 ML (IVPB) BAG IV ONE (20:45)
[2023-02-05] MEDS ORDERED: HOLD METFORMIN - RECEIVED CONTRAST 20 ML VIAL IV SCH (20:45)
[2023-02-05 20:59] LABS: BASOPHILS % (AUTO) 0 % (0-10); EOSINOPHILS # (AUTO) 0.3 10^3/uL (0.0-0.3); EOSINOPHILS % (AUTO) 2 % (0-10); HEMATOCRIT 38 % (35-52); HEMOGLOBIN 11.7 g/dL (11.5-16.0); LYMPHOCYTES # (AUTO) 3.2 10^3/uL (1.0-4.0); LYMPHOCYTES % (AUTO) 27 % (12-44); MEAN CORPUSCULAR HEMOGLOBIN 26 pg (25-34); MEAN CORPUSCULAR HGB CONC 31 g/dL (32-36); MEAN CORPUSCULAR VOLUME 85 fL (80-99); MEAN PLATELET VOLUME 9.5 fL (9.0-12.2); MONOCYTES # (AUTO) 0.7 10^3/uL (0.0-1.0); MONOCYTES % (AUTO) 6 % (0-12); NEUTROPHILS # (AUTO) 7.5 10^3/uL (1.8-7.8); NEUTROPHILS % (AUTO) 64 % (42-75); PLATELET COUNT 305 10^3/uL (130-400); WHITE BLOOD COUNT 11.7 10^3/uL (4.3-11.0)
[2023-02-05] MEDS ORDERED: NS IV 1000 ML 1,000 ML IV STA (21:19)
[2023-02-05 21:22] LABS: ALBUMIN 4.4 GM/DL (3.2-4.5); BILIRUBIN,TOTAL 0.7 MG/DL (0.1-1.0); CALCIUM 9.5 MG/DL (8.5-10.1); CREATININE SERUM 0.86 MG/DL (0.60-1.30); TOTAL PROTEIN 7.8 GM/DL (6.4-8.2)
--- NOTE | 2023-02-05 21:22 | Diagnostic Imaging Report ---
CT ABDOMEN/PELVIS W INDICATION: upper abd pain. COMPARISON: CT 08/31/22. TECHNIQUE: CT of the abdomen with intravenous contrast including delayed images. Patient received mL of Omnipaque 350 without complication. Coronal and sagittal reformatted images were performed. FINDINGS: Lower Chest: No consolidation in the lung bases. No pleural or pericardial effusion. Abdomen: No intraperitoneal free air, free fluid or focal fluid collection. Liver: Liver is enlarged. Biliary: Gallbladder is postsurgical. Spleen: Enlarged spleen. Pancreas: Pancreas enhances homogeneously without focal mass. No ductal dilation or peripancreatic inflammation. Adrenal: Normal adrenal glands. Kidneys and Ureters: Postsurgical changes from prior left nephrectomy. Normal right kidney.. Gastrointestinal Tract: Percutaneous gastric tube is normal. Small bowel containing ventral hernia. Visualized small bowel bowel and colon are normal caliber. Normal appendix. Vasculature: Abdominal aorta is normal caliber. Celiac, SMA, PARAS and renal arteries are patent. Mesenteric and portal veins are patent. Lymph Nodes: No abdominal lymphadenopathy. Skeletal Structures and Soft Tissues: No acute fracture. No destructive osseous lesion. Fat stranding within the cutaneous tissue in the upper abdomen. IMPRESSION: Fat stranding within the soft tissues of the upper abdomen may be seen with cellulitis. Small bowel containing ventral hernia. No bowel obstruction. Postsurgical changes from prior left nephrectomy. No hydronephrosis or nephrolithiasis. Hepatosplenomegaly. Dictated by: Dictated on workstation # [id number]
[2023-02-05] MEDS ORDERED: KETOROLAC INJ 30 MG/ML VIAL IVP ONE (21:45)
[2023-02-05] MEDS ORDERED: TRIM/SULFAMETH 160/800 (SEPTRA DS) TAB PO STA (22:08)
[2023-02-05] MEDS ORDERED: SULF-221 PO (22:10)
[2023-02-05 22:28] VITALS: BP 117/59
== END 2023-02-05 22:29 | disposition home or self-care (01) ==
LOC: EDUNIT# 20:20 → ER 20:23
DX: R10.9 Unspecified abdominal pain (principal); L03.311 Cellulitis of abdominal wall; E66.9 Obesity, unspecified; Z90.5 Acquired absence of kidney; Z93.1 Gastrostomy status; Z88.0 Allergy status to penicillin; Z68.42 Body mass index [BMI] 45.0-49.9, adult
CPT/HCPCS: 36415; 74177; 80053; 83690; 85025

== ENCOUNTER → 2023-02-05 | Outpatient (CLI) | payer MEDICARE, MEDICAID ==
[~2023-02-05] MED LIST changes: +DIATRIZOATE MEGLUM/SODIUM 37% 120 ML (GASTROGRAFIN) PO ONE; +SULF-221 PO
--- NOTE | 2023-02-05 15:39 | Diagnostic Imaging Report ---
EXAMINATION: Abdomen one view. HISTORY: Tube placement. COMPARISON: None available. FINDINGS: Gastric tube is present through a percutaneous approach. Contrast was administered through the tube and fills the stomach, no leak is seen. No dilated bowel or free air. IMPRESSION: 1. The gastric tube is in the stomach without leakage of contrast. Dictated by: Dictated on workstation # [id number]
== END ==
LOC: RAD 13:31
DX: R11.0 Nausea (principal); R10.12 Left upper quadrant pain; Z93.1 Gastrostomy status
CPT/HCPCS: 49465

== ENCOUNTER 2023-02-16 20:41 | Emergency (ER) | payer MEDICARE, MEDICAID ==
[~2023-02-16] VITALS: Ht 160 cm; Wt 118.0 kg
[~2023-02-16 20:41] MED LIST changes: +SULF-221 PO
[2023-02-16 20:47] VITALS: BP 144/93
--- NOTE | 2023-02-16 21:03 | ED GI ---
General Stated Complaint: FEEDING TUBE PROBLEMS Source of Information: Patient Exam Limitations: No Limitations History of Present Illness Date Seen by Provider: Feb 16, 2023 Time Seen by Provider: 20:59 Initial Comments Patient is a 37-year-old female who presents to the ED for feeding tube malfunction. She states since having pain and issues with feedings not wanting to go down through her tube. She has attempted to use water with gravity but states it is going down slow. She states today she had a burning sensation with her feeding and felt like she was forcing the feeding into her G- tube. She reports a mild discomfort to the left side of her abdomen. No vomiting with normal bowel movements. She denies of any drainage around her G- tube, redness or swelling. She is scheduled to follow-up her bariatric surgeon on February 21. She attempted to use a syringe to flush but states she felt like she was forcibly pushing the contact back down. Allergies and Home Medications Allergies Coded Allergies: morphine (Unverified Allergy, Mild, 11/17/22) meperidine (Verified Allergy, Unknown, 01/24/22) penicillin G (Verified Allergy, Unknown, 01/24/22) prochlorperazine (Verified Allergy, Unknown, 01/24/22) trimethobenzamide (Unverified Allergy, Unknown, 01/24/22) vancomycin (Verified Adverse Reaction, Intermediate, severe itching, 01/24/22) fentanyl (Verified Adverse Reaction, Unknown, HALLUCINATIONS, 02/27/22) Patient Home Medication List Home Medication List Reviewed: Yes Acetaminophen (Tylenol Extra Strength) 500 Mg Tablet, 1,000 MG PO Q8H PRN for PAIN-MILD (1-4), (Reported) Entered as Reported by: EMILIO SHEPPARD on 10/26/19 0812 Albuterol Sulfate (Ventolin Hfa) 90 Mcg Hfa.aer.ad, 2 PUFF INH Q6H PRN for SHORTNESS OF BREATH, (Reported) Entered as Reported by: CASSANDRA CHOPRA on 02/15/22 1215 Albuterol Sulfate (Albuterol Sulfate) 2.5 Mg/3 Ml (0.083 %) Vial.neb, 3 ML PO Q8H PRN for SHORTNESS OF BREATH, (Reported) Entered as Reported by: CASSANDRA CHOPRA on 02/15/22 1215 Amitriptyline HCl (Amitriptyline HCl) 10 Mg Tablet, 10 MG PO HS Prescribed by: CARMEN GIBBS on 03/01/22 1124 Atorvastatin Calcium (Atorvastatin Calcium) 40 Mg Tablet, 40 MG PO HS, (Reported) Entered as Reported by: CASSANDRA CHOPRA on 02/15/22 121 Cephalexin (Cephalexin) 500 Mg Tablet, 500 MG PO BID Prescribed by: ULI GARNER on 12/28/222055 Cyanocobalamin (Cyanocobalamin Injection) 1,000 Mcg/Ml Inj, 1,000 MCG IM MONTHLY, (Reported) Entered as Reported by: GRIFFIN ORTEGA on 07/24/21 114 Diphenhydramine HCl (Benadryl) 25 Mg Capsule, 50 MG PO HS, (Reported) Entered as Reported by: EMILIO SHEPPARD on 10/26/19 0812 Glycerin (Glycerin) Adult Supp.rect, 1 EACH RC DAILY PRN for CONSTIPATION Prescribed by: IZABELA MAC on 07/31/22 0238 Hydrocodone/Acetaminophen (Hydrocodone-Acetamin 5-325 mg) 5 Mg-325 Mg Tablet, 1 TAB PO Q6H PRN for PAIN-MODERATE (5-7), (Reported) Entered as Reported by: CASSANDRA CHOPRA on 02/15/22 121 Metoclopramide HCl (Reglan) 5 Mg Tablet, 5 MG PO Q6H PRN for NAUSEA/VOMITING Prescribed by: IZABELA MAC on 07/31/22 0238 Ondansetron (Ondansetron Odt) 8 Mg Tab.rapdis, 8 MG PO Q8H PRN for NAUSEA/VOMITING-1ST LINE, (Reported) Entered as Reported by: EMILIO SHEPPARD on 10/26/19 0812 Pantoprazole Sodium (Pantoprazole Sodium) 40 Mg Tablet.dr, 40 MG PO DAILY Prescribed by: CARMEN GIBBS on 03/01/22 112 Promethazine HCl (Promethazine Tablet) 25 Mg Tablet, 25 MG PO Q6H PRN for NAUSEA/VOMITING-2ND LINE, (Reported) Entered as Reported by: LEX HOSKINS on 12/07/20 0916 Ropinirole HCl (Ropinirole HCl) 4 Mg Tablet, 4 MG PO HS, (Reported) Entered as Reported by: LEX HOSKINS on 06/28/17 1010 Sitagliptin Phos/Metformin HCl (Janumet Xr 50-1,000 mg Tablet) 50 Mg-1,000 Mg Tbmp.24hr, 2 TAB PO HS, (Reported) Entered as Reported by: LEX HOSKINS on 12/07/20 0916 Sulfamethoxazole/Trimethoprim (Bactrim Ds Tablet) 1 Each Tablet, 1 EACH PO BID Prescribed by: Karen Garvey on 10/28/22 2319 Sulfamethoxazole/Trimethoprim (Bactrim Ds Tablet) 800 Mg-160 Mg Tablet, 1 EACH PO BID Prescribed by: ULI GARNER on 02/05/23 2210 Review of Systems Review of Systems Constitutional: No chills, No diaphoresis EENTM: No Double Vision, No Eye Pain Respiratory: Denies Cough, Denies Orthopnea Cardiovascular: Denies Chest Pain Gastrointestinal: Abdominal Pain; Denies Diarrhea, Denies Nausea, Denies Vomiting Genitourinary: Denies Burning, Denies Discharge Musculoskeletal: No back pain, No joint pain Skin: No change in color All Other Systems Reviewed Negative Unless Noted: Yes Past Bjnciry-Mtwvdt-Lryyiu Hx Immunizations Up To Date Tetanus Booster (TDap): Less than 5yrs PED Vaccines UTD: No First/Initial COVID19 Vaccinat: x2 Second COVID19 Vaccination Alvaro: x2 Third COVID19 Vaccination Date: x2 Seasonal Allergies Seasonal Allergies: No Past Medical History Surgery/Hospitalization HX: LEFT NEPHRECTOMY, APPENDECTOMY, CHOLECYSTECTOMY, HYSTERECTOMY, HERNIA, T/A PANCREATITIS, ASTHMA, HEADACHE, GERD, LIVER DISEASE, CH. 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 Sexually Transmitted Disease: No HIV/AIDS: No Genitourinary: Yes (S/P LEFT NEPHRECTOMY) UTI-Chronic Gastrointestinal: Yes (CHRONIC ABD PAIN/N/V./D) Abdominal Hernia, Gastroesophageal Reflux, Liver Disease/Jaundice, Obstructive B owel, Pancreatitis, Chronic Diarrhea, Polyps Musculoskeletal: Yes (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) Chronic Back Pain Endocrine: Yes (OBESITY) Diabetes, Non-Insulin dep HEENT: No Loss of Vision: Denies Hearing Impairment: Denies Cancer: Yes Kidney Did You Recieve Any Treatments: Yes What Type of Treatment Did You: Surgical Intervention Psychosocial: Yes Anxiety, Depression Integumentary: No Herpes Blood Disorders: No Adverse Reaction/Blood Tranf: No (N/A) Family Medical History Cardiovascular disease 19 FATHER Completed stroke 19 FATHER Diabetes mellitus 19 FATHER Hypercholesterolemia 19 FATHER 19 MOTHER Hypertension 19 FATHER 19 MOTHER Neoplasm 19 MOTHER Psychosocial problem 19 FATHER 19 MOTHER No Pertinent Family Hx, Cancer, Diabetes, Hypertension PSH: -RIGHT KNEE SCOPE X 5 -LEFT KNEE SCOPE X 2 -TONSILLECTOMY / ADENOIDECTOMY -APPENDECTOMY -CHOLECYSTECTOMY -NASAL FRACTURE REPAIR -COCCYX REMOVAL -LEFT NEPHRECTOMY FOR MALIGNANCY -LEFT MID ABDOMEN INCISIONAL HERNIA REPAIR -DRAINAGE OF ABDOMINAL WALL ABSCESS -MULTIPLE EGD'S AND COLONOSCOPIES-- LAST ONE HERE 10/2019. HAD ONE 07/2022 AT -HYSTERECTOMY / BILATERAL SALPINGO-OOPHORECTOMY 2007 -06/23/20--RIGHT CHEST WALL/SHOULDER INJECTION FOR THORACIC OUTLET SYNDROME--DONE IN -PORT REMOVED FROM LEFT CHEST 07/24/21 FOR NON-FUNCTIONING PORT-BY DR. MARROQUIN Physical Exam Vital Signs Capillary Refill : Height/Weight/BMI Height: 5'3.00" Weight: 246lbs. 0oz. 111.417354pm; 46.00 BMI Method:Stated General Appearance: WD/WN, no apparent distress HEENT: PERRL/EOMI, normal ENT inspection, TMs normal, pharynx normal Neck: non-tender, full range of motion, supple Respiratory: chest non-tender, lungs clear, normal breath sounds, no respiratory distress, no accessory muscle use Cardiovascular: regular rate, rhythm, no edema, no gallop, no JVD Gastrointestinal: normal bowel sounds, non tender, soft, no organomegaly, no pulsatile mass, other (G-tube in place. 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 She has been irrigating with water and using gravity but states it is running in slower. She has not attempted to irrigate with a syringe. She is concerned that feedings are coming back up. She reports some pain around the G-tube. She did attempt the tube feeding today but reports some burning pain. Irrigated with normal saline here without any difficulties. Easy to flush. I Was able to pour water in using gravity without any difficulties. There is no evidence of cellulitis around the G-tube. No distended abdomen. No vomiting or diarrhea with normal bowel movements. Discussed irrigating your G-tube after every feeding which she has not been doing. Discussed with patient that her feedings can get clog after each feeding resulting in issues and harder future feedings. Provided in structions. They agree with this plan. No evidence of surgical abdomen. Follow-up with your bariatric surgeon for further evaluation. Return back to ED if any worsening symptoms. Schedule follow-up with her bariatric surgeon at on February 21. No evidence of cellulitis around the G-tube. Impression Primary Impression: Feeding tube dysfunction Disposition: HOME, SELF-CARE Condition: Stable Departure-Patient Inst. Decision time for Depature: 21:09 Referrals: CARMEN GIBBS MD (PCP/Family) Primary Care Physician Patient Instructions: How to Give a Tube Feeding Add. Discharge Instructions: Continue with your flushing. Follow-up with your bariatric surgeon. If any worsening issues to return back to the LYSSA MORALES Feb 16, 2023 21:03
== END 2023-02-16 21:25 | disposition home or self-care (01) ==
LOC: EDUNIT# 20:41 → ER 20:43
DX: K94.23 Gastrostomy malfunction (principal); E66.9 Obesity, unspecified; Z68.42 Body mass index [BMI] 45.0-49.9, adult
CPT/HCPCS: 99283

== ENCOUNTER 2023-02-27 10:03 | Emergency (ER) | payer MEDICARE, MEDICAID ==
[~2023-02-27] VITALS: Ht 160 cm; Wt 120.0 kg
[~2023-02-27 10:03] MED LIST changes: +ROPI2TAB52 PO; -ROPI2TAB6 PO; +ROPI4TAB40 PO; -ROPI4TAB5 PO
--- NOTE | 2023-02-27 11:37 | ED Abdominal Pain ---
General Chief Complaint: Abdominal/GI Problems Stated Complaint: ABD PAIN | FEEDING TUBE COMING OUT Nursing Triage Note: PT PRESENTS TO ED VIA POV FROM HOME WITH COMPLAINTS OF PAIN NEAR FEEDING TUBE INSERTION SITE. PT ALSO REPORTS BURNING WHEN DOING HER FEEDS SINCE YESTERDAY. PT HAD THE FEEDING TUBE PLACED 4 WEEKS AGO. Source of Information: Patient Exam Limitations: No Limitations (LYSSA MORALES) History of Present Illness Date Seen by Provider: Feb 27, 2023 Time Seen by Provider: 11:32 Initial Comments Patient is a 37-year-old female who presents to ED for left upper abdominal pain near her feeding tube. She had the sutures removed from the outer rim of the feeding tube last week in [place]. She states she has been having burning sensation around her feeding tube since her tube was placed 1 month ago in [place]. Patient states over the past few days she has been tasting formula with increasing pain around the tube site. . She denies of any surrounding redness or drainage. She states the feeding tube is wanting to come out. She has been using a pad around the insertion site of the feeding tube to help stabilize. she did use the feeding tube yesterday morning and has not used since. She is able to tolerate fluids orally. She denies of any diarrhea. She denies any fever, chills, chest pain, shortness of breath. Feeding tube appears to be in place. (LYSSA MORALES) Allergies and Home Medications Allergies Coded Allergies: morphine (Unverified Allergy, Mild, 11/17/22) meperidine (Verified Allergy, Unknown, 01/24/22) penicillin G (Verified Allergy, Unknown, 01/24/22) prochlorperazine (Verified Allergy, Unknown, 01/24/22) trimethobenzamide (Unverified Allergy, Unknown, 01/24/22) vancomycin (Verified Adverse Reaction, Intermediate, severe itching, 01/24/22) fentanyl (Verified Adverse Reaction, Unknown, HALLUCINATIONS, 02/27/22) Patient Home Medication List Home Medication List Reviewed: Yes (LYSSA MORALES) Acetaminophen (Tylenol Extra Strength) 500 Mg Tablet, 1,000 MG PO Q8H PRN for PAIN-MILD (1-4), (Reported) Entered as Reported by: EMILIO SHEPPARD on 10/26/19 0812 Albuterol Sulfate (Ventolin Hfa) 90 Mcg Hfa.aer.ad, 2 PUFF INH Q6H PRN for SHORTNESS OF BREATH, (Reported) Entered as Reported by: CASSANDRA CHOPRA on 02/15/22 121 Albuterol Sulfate (Albuterol Sulfate) 2.5 Mg/3 Ml (0.083 %) Vial.neb, 3 ML PO Q8H PRN for SHORTNESS OF BREATH, (Reported) Entered as Reported by: CASSANDRA CHOPRA on 02/15/22 121 Amitriptyline HCl (Amitriptyline HCl) 10 Mg Tablet, 10 MG PO HS Prescribed by: CARMEN GIBBS on 03/01/22 112 Atorvastatin Calcium (Atorvastatin Calcium) 40 Mg Tablet, 40 MG PO HS, (Repor arvind) Entered as Reported by: CASSANDRA CHOPRA on 02/15/22 121 Cephalexin (Cephalexin) 500 Mg Tablet, 500 MG PO BID Prescribed by: ULI GARNER on 12/28/222055 Cyanocobalamin (Cyanocobalamin Injection) 1,000 Mcg/Ml Inj, 1,000 MCG IM MONTHLY, (Reported) Entered as Reported by: GRIFFIN ORTEGA on 07/24/21 1145 Diphenhydramine HCl (Benadryl) 25 Mg Capsule, 50 MG PO HS, (Reported) Entered as Reported by: EMILIO SHEPPARD on 10/26/19 0812 Glycerin (Glycerin) Adult Supp.rect, 1 EACH RC DAILY PRN for CONSTIPATION Prescribed by: IZABELA MAC on 07/31/22 0238 Hydrocodone/Acetaminophen (Hydrocodone-Acetamin 5-325 mg) 5 Mg-325 Mg Tablet, 1 TAB PO Q6H PRN for PAIN-MODERATE (5-7), (Reported) Entered as Reported by: CASSANDRA CHOPRA on 02/15/22 121 Metoclopramide HCl (Reglan) 5 Mg Tablet, 5 MG PO Q6H PRN for NAUSEA/VOMITING Prescribed by: IZABELA MAC on 07/31/22 0238 Ondansetron (Ondansetron Odt) 8 Mg Tab.rapdis, 8 MG PO Q8H PRN for NAUSEA/VOMITING-1ST LINE, (Reported) Entered as Reported by: EMILIO SHEPPARD on 10/26/19 0812 Pantoprazole Sodium (Pantoprazole Sodium) 40 Mg Tablet.dr, 40 MG PO DAILY Prescribed by: CARMEN GIBBS on 03/01/22 1124 Promethazine HCl (Promethazine Tablet) 25 Mg Tablet, 25 MG PO Q6H PRN for NAUSEA/VOMITING-2ND LINE, (Reported) Entered as Reported by: LEX HOSKINS on 12/07/20 0916 Ropinirole HCl (Ropinirole HCl) 4 Mg Tablet, 4 MG PO HS, (Reported) Entered as Reported by: LEX HOSKINS on 06/28/17 1010 Sitagliptin Phos/Metformin HCl (Janumet Xr 50-1,000 mg Tablet) 50 Mg-1,000 Mg Tbmp.24hr, 2 TAB PO HS, (Reported) Entered as Reported by: LEX HOSKINS on 12/07/20 0916 Sulfamethoxazole/Trimethoprim (Bactrim Ds Tablet) 1 Each Tablet, 1 EACH PO BID Prescribed by: Karen Garvey on 10/28/22 2319 Sulfamethoxazole/Trimethoprim (Bactrim Ds Tablet) 800 Mg-160 Mg Tablet, 1 EACH PO BID Prescribed by: ULI GARNER on 02/05/23 2210 Review of Systems Review of Systems Constitutional: No chills, No diaphoresis EENTM: No Double Vision, No Eye Pain Respiratory: Denies Cough, Denies Orthopnea Cardiovascular: Denies Chest Pain Gastrointestinal: Abdominal Pain; Denies Diarrhea, Denies Nausea, Denies Vomiting Genitourinary: Denies Burning, Denies Discharge Musculoskeletal: No back pain, No joint pain, No joint swelling, No muscle pain Skin: No change in color, No change in hair/nails (LYSSA MORALES) All Other Systems Reviewed Negative Unless Noted: Yes (LYSSA MORALES) Past Xemygda-Yzipsb-Lvyrgl Hx Patient Social History Tobacco Use?: No Substance use?: No Alcohol Use?: No Pt feels they are or have been: No (LYSSA MORALES) Immunizations Up To Date Tetanus Booster (TDap): Less than 5yrs PED Vaccines UTD: No First/Initial COVID19 Vaccinat: x2 Second COVID19 Vaccination Alvaro: x2 Third COVID19 Vaccination Date: x2 (LYSSA MORALES) Seasonal Allergies Seasonal Allergies: No (LYSSA MORALES) Past Medical History Surgery/Hospitalization HX: LEFT NEPHRECTOMY, APPENDECTOMY, CHOLECYSTECTOMY, HYSTERECTOMY, HERNIA, T/A PANCREATITIS, ASTHMA, HEADACHE, GERD, LIVER DISEASE, CH. 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 Sexually Transmitted Disease: No HIV/AIDS: No Genitourinary: Yes (S/P LEFT NEPHRECTOMY) UTI-Chronic Gastrointestinal: Yes (CHRONIC ABD PAIN/N/V./D) Abdominal Hernia, Gastroesophageal Reflux, Liver Disease/Jaundice, Obstructive Bowel, Pancreatitis, Chronic Diarrhea, Polyps Musculoskeletal: Yes (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) Chronic Back Pain Endocrine: Yes (OBESITY) Diabetes, Non-Insulin dep HEENT: No Loss of Vision: Denies Hearing Impairment: Denies Cancer: Yes Kidney Did You Recieve Any Treatments: Yes What Type of Treatment Did You: Surgical Intervention Psychosocial: Yes Anxiety, Depression Integumentary: No Herpes Blood Disorders: No Adverse Reaction/Blood Tranf: No (N/A) (LYSSA MORALES) Family Medical History Cardiovascular disease 19 FATHER Completed stroke 19 FATHER Diabetes mellitus 19 FATHER Hypercholesterolemia 19 FATHER 19 MOTHER Hypertension 19 FATHER 19 MOTHER Neoplasm 19 MOTHER Psychosocial problem 19 FATHER 19 MOTHER No Pertinent Family Hx, Cancer, Diabetes, Hypertension PSH: -RIGHT KNEE SCOPE X 5 -LEFT KNEE SCOPE X 2 -TONSILLECTOMY / ADENOIDECTOMY -APPENDECTOMY -CHOLECYSTECTOMY -NASAL FRACTURE REPAIR -COCCYX REMOVAL -LEFT NEPHRECTOMY FOR MALIGNANCY -LEFT MID ABDOMEN INCISIONAL HERNIA REPAIR -DRAINAGE OF ABDOMINAL WALL ABSCESS -MULTIPLE EGD'S AND COLONOSCOPIES-- LAST ONE HERE 10/2019. HAD ONE 07/2022 AT -HYSTERECTOMY / BILATERAL SALPINGO-OOPHORECTOMY 2007 -06/23/20--RIGHT CHEST WALL/SHOULDER INJECTION FOR THORACIC OUTLET SYNDROME--DONE IN -PORT REMOVED FROM LEFT CHEST 07/24/21 FOR NON-FUNCTIONING PORT-BY DR. MARROQUIN (LYSSA MORALES) Physical Exam Vital Signs Vital Signs - First Documented 02/27/23 10:33 Temp 36.4 Pulse 86 Resp 16 B/P (MAP) 138/86 (103) Pulse Ox 98 (IZABELA RENDON MD) Vital Signs Capillary Refill : Less Than 3 Seconds (LYSSA MORALES) Height/Weight/BMI Height: 5'3.00" Weight: 246lbs. 0oz. 111.541410dg; 46.00 BMI Method:Stated General Appearance: WD/WN, no apparent distress HEENT: PERRL/EOMI, normal ENT inspection, TMs normal, pharynx normal Neck: non-tender, full range of motion, supple Respiratory: chest non-tender, lungs clear, normal breath sounds, no respiratory distress Cardiovascular: regular rate, rhythm, no edema, no gallop, no JVD Gastrointestinal: other (Feeding tube in place left upper abdomen. No surrounding redness or swelling. Mild localized tenderness around the tube and left upper quad. 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 Complaining of burning pain to her upper abdomen since the surgery. She had anchoring sutures of the feeding tube removed last week. Patient appears in no acute distress. Currently taking Senokot for constipation. No diarrhea vomiting. Reviewed previous ER visits, H&P, lab testing. Multiple visits for similar type pain. She is concerned that the feeding tube is wanting to dislodge. Irrigated the feeding tube without any restrictions. Appears to be in place. Did ordered a x-ray of the abdomen with contrast which did not note any obstruction and appears to be in its correct position. Gastrotomy tube tip appears to be in the gastric antrum with no obstruction or extravasation. Did note large amount of stool in the colon. Patient pain appears to be more chronic. Not concern for postsurgical complication at this time. No evidence of cellulitis. No purulent drainage from around the tube. Afebrile. Similar type pain with other visits. Nonsurgical abdomen tolerating feedings but states it wallace. Discussed antiacid. Constipation may be related to some of her pain. Recommend MiraLAX or Dulcolax. Recommend staying hydrated. If any worsening symptoms return back to ED. (LYSSA MORALES) Impression Primary Impression: Constipation Disposition: 01 HOME, SELF-CARE Condition: Stable Departure-Patient Inst. Decision time for Depature: 13:26 (LYSSA MORALES) Referrals: CARMEN GIBBS MD (PCP/Family) Primary Care Physician Patient Instructions: Constipation, Adult ED Add. Discharge Instructions: Recommend drinking plenty of fluids. May consider MiraLAX or Dulcolax to help with bowel movement. Continue with your feedings. Follow-up with your GI speci alist All discharge instructions reviewed with patient and/or family. Voiced understanding. ATTENDING PHYSICIAN NOTE: I was physically present as attending physician in the emergency department during the care of this patient, but I was not directly involved in the decision making or delivery of care for this patient. (IZABELA RENDON MD) LYSSA MORALES Feb 27, 2023 11:37 IZABELA RENDON MD Feb 28, 2023 09:33
[2023-02-27] MEDS ORDERED: DIATRIZOATE MEGLUM/SODIUM 37% 120 ML (GASTROGRAFIN) PO ONE (12:00)
--- NOTE | 2023-02-27 13:20 | Diagnostic Imaging Report ---
Indication: Pain in left upper quadrant around feeding tube. Environmental Advisor image obtained demonstrates G-tube overlying left upper quadrant. There is prominent stool throughout the colon. There is no overt obstruction. There are surgical clips in the right upper and right lower quadrants. Images obtained after contrast injection demonstrate gastrostomy tube tip in the gastric antrum. There is no obstruction or extravasation. Impression: Gastrotomy tube tip appears to be in the gastric antrum with no obstruction or extravasation. There is a large amount of stool throughout the colon. Dictated by: Dictated on workstation # [id number]
[2023-02-27 13:30] VITALS: BP 107/79
== END 2023-02-27 13:30 | disposition home or self-care (01) ==
LOC: EDUNIT# 10:03 → ER 10:04
DX: K59.00 Constipation, unspecified (principal); E66.9 Obesity, unspecified; Z90.49 Acquired absence of other specified parts of digestive tract; Z68.42 Body mass index [BMI] 45.0-49.9, adult; Z93.1 Gastrostomy status
CPT/HCPCS: 49465

== ENCOUNTER 2023-04-26 10:28 | Emergency (ER) | payer MEDICARE, MEDICAID ==
[~2023-04-26 10:28] MED LIST changes: -PREG75CA75 PO; +PREG75CA76 PO
[2023-04-26] MEDS ORDERED: NS IV 1000 ML 1,000 ML IV STA (11:13)
[2023-04-26 11:20] LABS: BASOPHILS % (AUTO) 0 % (0-10); EOSINOPHILS % (AUTO) 0 % (0-10); HEMATOCRIT 36 % (35-52); MEAN CORPUSCULAR VOLUME 84 fL (80-99)
[2023-04-26 11:22] LABS: HEMOGLOBIN 11.3 g/dL (11.5-16.0); LYMPHOCYTES # (AUTO) 1.5 10^3/uL (1.0-4.0); LYMPHOCYTES % (AUTO) 11 % (12-44); MEAN CORPUSCULAR HEMOGLOBIN 26 pg (25-34); MEAN CORPUSCULAR HGB CONC 31 g/dL (32-36); MEAN PLATELET VOLUME 9.8 fL (9.0-12.2); MONOCYTES # (AUTO) 0.5 10^3/uL (0.0-1.0); MONOCYTES % (AUTO) 4 % (0-12); NEUTROPHILS # (AUTO) 11.6 10^3/uL (1.8-7.8); NEUTROPHILS % (AUTO) 84 % (42-75); PLATELET COUNT 278 10^3/uL (130-400); WHITE BLOOD COUNT 13.7 10^3/uL (4.3-11.0)
[2023-04-26 11:38] LABS: ALBUMIN 4.4 GM/DL (3.2-4.5); BILIRUBIN,TOTAL 0.3 MG/DL (0.1-1.0); CALCIUM 9.8 MG/DL (8.5-10.1); CREATININE SERUM 0.98 MG/DL (0.60-1.30); POTASSIUM 4.3 MMOL/L (3.6-5.0); TOTAL PROTEIN 7.8 GM/DL (6.4-8.2)
--- NOTE | 2023-04-26 11:44 | ED Abdominal Pain ---
General Chief Complaint: Abdominal/GI Problems Stated Complaint: ABD PAIN | NAUSEA | VOMITING Nursing Triage Note: PT AMB TO RM 3 PT CO OF N/V AND ABD PAIN STARTED YESTERDAY, PT STATES HAD FEEDING TUBE REPLACED ON SATURDAY. PT HAS HX OF PANCREATIS. PT STATES YESTERDAYS STARTED HAVING PAIN / AND N/V. PT HAS ONLY TAKEN TYLENOL, ZOFRAN, PHENERGAN AND LORAZAPAM FROM NAUSEA AND PAIN. PT STATES DOES 10HR OF FEEDING FORMULA AND 5 HOURS OF WATER AT 75CC/HR. Source of Information: Patient Exam Limitations: No Limitations (LYSSA MORALES) History of Present Illness Date Seen by Provider: Apr 26, 2023 Time Seen by Provider: 11:41 Initial Comments Patient is a 38-year-old female with a history of gastric delayed emptying, feeding tube who presents to ED for upper abdominal pain. This started late last night. Pain is described as sharp radiating to right upper abdomen. Similar type pain in the past. She states she had her feeding tube replaced at this Saturday. She states a feeding tube now currently goes into the colon. She does eat once a day but states she feels nauseous. She does do a 10-hour feeding and 5-hour fluid daily. She has been taking hydrocodone and/or Tylenol with very minimal improvement. She states she is urinating 2 or 3 times a day. She states she feels dehydrated. History of pancreatitis. She denies of any chest pain, shortness of breath, headache, dizziness, sore throat, fever, chills, dysuria. She does report few episodes of vomiting this morning and states she feels nauseous. Denies diarrhea (LYSSA MORALES) Allergies and Home Medications Allergies Coded Allergies: morphine (Unverified Allergy, Mild, 11/17/22) meperidine (Verified Allergy, Unknown, 01/24/22) penicillin G (Verified Allergy, Unknown, 01/24/22) prochlorperazine (Verified Allergy, Unknown, 01/24/22) trimethobenzamide (Unverified Allergy, Unknown, 01/24/22) vancomycin (Verified Adverse Reaction, Intermediate, severe itching, 01/24/22) fentanyl (Verified Adverse Reaction, Unknown, HALLUCINATIONS, 02/27/22) Patient Home Medication List Home Medication List Reviewed: Yes (LYSSA MORALES) Acetaminophen (Tylenol Extra Strength) 500 Mg Tablet, 1,000 MG PO Q8H PRN for PAIN-MILD (1-4), (Reported) Entered as Reported by: EMILIO SHEPPARD on 10/26/19 0812 Albuterol Sulfate (Ventolin Hfa) 90 Mcg Hfa.aer.ad, 2 PUFF INH Q6H PRN for SHORTNESS OF BREATH, (Reported) Entered as Reported by: CASSANDRA CHOPRA on 02/15/22 1215 Albuterol Sulfate (Albuterol Sulfate) 2.5 Mg/3 Ml (0.083 %) Vial.neb, 3 ML PO Q8H PRN for SHORTNESS OF BREATH, (Reported) Entered as Reported by: CASSANDRA CHOPRA on 02/15/22 1215 Amitriptyline HCl (Amitriptyline HCl) 10 Mg Tablet, 10 MG PO HS Prescribed by: CARMEN GIBBS on 03/01/22 1124 Atorvastatin Calcium (Atorvastatin Calcium) 40 Mg Tablet, 40 MG PO HS, (Reported) Entered as Reported by: CASSANDRA CHOPRA on 02/15/22 121 Cephalexin (Cephalexin) 500 Mg Tablet, 500 MG PO BID Prescribed by: ULI GARNER on 12/28/222055 Cyanocobalamin (Cyanocobalamin Injection) 1,000 Mcg/Ml Inj, 1,000 MCG IM MONTHLY, (Reported) Entered as Reported by: GRIFFIN ORTEGA on 07/24/21 1145 Diphenhydramine HCl (Benadryl) 25 Mg Capsule, 50 MG PO HS, (Reported) Entered as Reported by: EMILIO SHEPPARD on 10/26/19 0812 Glycerin (Glycerin) Adult Supp.rect, 1 EACH RC DAILY PRN for CONSTIPATION Prescribed by: IZABELA MAC on 07/31/22 0238 Hydrocodone/Acetaminophen (Hydrocodone-Acetamin 5-325 mg) 5 Mg-325 Mg Tablet, 1 TAB PO Q6H PRN for PAIN-MODERATE (5-7), (Reported) Entered as Reported by: CASSANDRA CHOPRA on 02/15/22 1215 Metoclopramide HCl (Reglan) 5 Mg Tablet, 5 MG PO Q6H PRN for NAUSEA/VOMITING Prescribed by: IZABELA MAC on 07/31/22 0238 Ondansetron (Ondansetron Odt) 8 Mg Tab.rapdis, 8 MG PO Q8H PRN for NAUSEA/VOMITING-1ST LINE, (Reported) Entered as Reported by: EMILIO SHEPPARD on 10/26/19 0812 Pantoprazole Sodium (Pantoprazole Sodium) 40 Mg Tablet.dr, 40 MG PO DAILY Prescribed by: CARMEN GIBBS on 03/01/22 1124 Promethazine HCl (Promethazine Tablet) 25 Mg Tablet, 25 MG PO Q6H PRN for NAUSEA/VOMITING-2ND LINE, (Reported) Entered as Reported by: LEX HOSKINS on 12/07/20 0916 Ropinirole HCl (Ropinirole HCl) 4 Mg Tablet, 4 MG PO HS, (Reported) Entered as Reported by: LEX HOSKINS on 06/28/17 1010 Sitagliptin Phos/Metformin HCl (Janumet Xr 50-1,000 mg Tablet) 50 Mg-1,000 Mg Tbmp.24hr, 2 TAB PO HS, (Reported) Entered as Reported by: LEX HOSKINS on 12/07/20 0916 Sulfamethoxazole/Trimethoprim (Bactrim Ds Tablet) 1 Each Tablet, 1 EACH PO BID Prescribed by: Karen Garvey on 10/28/22 2319 Sulfamethoxazole/Trimethoprim (Bactrim Ds Tablet) 800 Mg-160 Mg Tablet, 1 EACH PO BID Prescribed by: ULI GARNER on 02/05/23 2210 Review of Systems Review of Systems Constitutional: No chills, No diaphoresis, No fever, No malaise EENTM: No Blurred Vision, No Double Vision, No Eye Pain Respiratory: Denies Cough, Denies Orthopnea Cardiovascular: Denies Chest Pain Gastrointestinal: Abdominal Pain, Nausea, Vomiting Genitourinary: Denies Burning, Denies Discharge, Denies Drainage, Denies Frequency Musculoskeletal: No back pain, No gout Skin: No change in color, No change in hair/nails (LYSSA MORALES) All Other Systems Reviewed Negative Unless Noted: Yes (LYSSA MORALES) Past Nkoqsnp-Mxdcve-Jqyaze Hx Patient Social History Tobacco Use?: No Substance use?: No Alcohol Use?: No Pt feels they are or have been: No (LYSSA MORALES) Immunizations Up To Date Tetanus Booster (TDap): Less than 5yrs PED Vaccines UTD: No First/Initial COVID19 Vaccinat: x2 Second COVID19 Vaccination Alvaro: x2 Third COVID19 Vaccination Date: x2 (LYSSA MORALES) Seasonal Allergies Seasonal Allergies: No (LYSSA MORALES) Past Medical History Surgery/Hospitalization HX: LEFT NEPHRECTOMY, APPENDECTOMY, CHOLECYSTECTOMY, HYSTERECTOMY, HERNIA, T/A PANCREATITIS, ASTHMA, HEADACHE, GERD, LIVER DISEASE, CH. 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 Sexually Transmitted Disease: No HIV/AIDS: No Genitourinary: Yes (S/P LEFT NEPHRECTOMY) UTI-Chronic Gastrointestinal: Yes (CHRONIC ABD PAIN/N/V./D) Abdominal Hernia, Gastroesophageal Reflux, Liver Disease/Jaundice, Obstructive Bowel, Pancreatitis, Chronic Diarrhea, Polyps Musculoskeletal: Yes (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) Chronic Back Pain Endocrine: Yes (OBESITY) Diabetes, Non-Insulin dep HEENT: No Loss of Vision: Denies Hearing Impairment: Denies Cancer: Yes Kidney Did You Recieve Any Treatments: Yes What Type of Treatment Did You: Surgical Intervention Psychosocial: Yes Anxiety, Depression Integumentary: No Herpes Blood Disorders: No Adverse Reaction/Blood Tranf: No (N/A) (LYSSA MORALES) Family Medical History Cardiovascular disease 19 FATHER Completed stroke 19 FATHER Diabetes mellitus 19 FATHER Hypercholesterolemia 19 FATHER 19 MOTHER Hypertension 19 FATHER 19 MOTHER Neoplasm 19 MOTHER Psychosocial problem 19 FATHER 19 MOTHER No Pertinent Family Hx, Cancer, Diabetes, Hypertension PSH: -RIGHT KNEE SCOPE X 5 -LEFT KNEE SCOPE X 2 -TONSILLECTOMY / ADENOIDECTOMY -APPENDECTOMY -CHOLECYSTECTOMY -NASAL FRACTURE REPAIR -COCCYX REMOVAL -LEFT NEPHRECTOMY FOR MALIGNANCY -LEFT MID ABDOMEN INCISIONAL HERNIA REPAIR -DRAINAGE OF ABDOMINAL WALL ABSCESS -MULTIPLE EGD'S AND COLONOSCOPIES-- LAST ONE HERE 10/2019. HAD ONE 07/2022 AT -HYSTERECTOMY / BILATERAL SALPINGO-OOPHORECTOMY 2007 -06/23/20--RIGHT CHEST WALL/SHOULDER INJECTION FOR THORACIC OUTLET SYNDROME--DONE IN -PORT REMOVED FROM LEFT CHEST 07/24/21 FOR NON-FUNCTIONING PORT-BY DR. MARROQUIN (LYSSA MORALES) Physical Exam Vital Signs Vital Signs - First Documented 04/26/23 10:45 Pulse 106 Resp 18 B/P (MAP) 125/85 (98) Pulse Ox 97 (IZABELA RENDON MD) Vital Signs Capillary Refill : Less Than 3 Seconds (LYSSA MORALES) Height/Weight/BMI Height: 5'3.00" Weight: 246lbs. 0oz. [phone]; 46.00 BMI Method:Stated General Appearance: WD/WN, no apparent distress HEENT: PERRL/EOMI, normal ENT inspection, TMs normal, pharynx normal Neck: non-tender, full range of motion, supple Respiratory: chest non-tender, lungs clear, normal breath sounds, no respiratory distress, no accessory muscle use Cardiovascular: regular rate, rhythm, no edema, no gallop, no JVD Gastrointestinal: normal bowel sounds, soft, no organomegaly, no pulsatile mass, other (Feeding tube in place. Epigastric tenderness on palpation. Normal bowel sound throughout. No rebound or guarding.) Extremities: normal range of motion, non-tender, normal inspection, no pedal edema Back: normal inspection, no CVA tenderness Neurologic/Psychiatric: environmental aide II-XII nml as tested, no motor/sensory deficits, alert, normal mood/affect, oriented x 3 (LYSSA MORALES) Progress/Results/Core Measures Results/Orders Lab Results Laboratory Tests Test 04/26/23 11:10 04/26/23 12:17 Range/Units White Blood Count 13.7 H 4.3-11.0 10^3/uL Red Blood Count 4.31 3.80-5.11 10^6/uL Hemoglobin 11.3 L 11.5-16.0 g/dL Hematocrit 36 35-52 % Mean Corpuscular Volume 84 80-99 fL Mean Corpuscular Hemoglobin 26 25-34 pg Mean Corpuscular Hemoglobin Concent 31 L 32-36 g/dL Red Cell Distribution Width 14.8 H 10.0-14.5 % Platelet Count 278 130-400 10^3/uL Mean Platelet Volume 9.8 9.0-12.2 fL Immature Granulocyte % (Auto) 1 % Neutrophils (%) (Auto) 84 H 42-75 % Lymphocytes (%) (Auto) 11 L 12-44 % Monocytes (%) (Auto) 4 0-12 % Eosinophils (%) (Auto) 0 0-10 % Basophils (%) (Auto) 0 0-10 % Neutrophils # (Auto) 11.6 H 1.8-7.8 10^3/uL Lymphocytes # (Auto) 1.5 1.0-4.0 10^3/uL Monocytes # (Auto) 0.5 0.0-1.0 10^3/uL Eosinophils # (Auto) 0.0 0.0-0.3 10^3/uL Basophils # (Auto) 0.0 0.0-0.1 10^3/uL Immature Granulocyte # (Auto) 0.1 0.0-0.1 10^3/uL Percent Immature Platelet Fraction 2.4 0.0-7.6 % Sodium Level 141 135-145 MMOL/L Potassium Level 4.3 3.6-5.0 MMOL/L Chloride Level 107 98-107 MMOL/L Carbon Dioxide Level 22 21-32 MMOL/L Anion Gap 12 5-14 MMOL/L Blood Urea Nitrogen 19 H 7-18 MG/DL Creatinine 0.98 0.60-1.30 MG/DL Estimat Glomerular Filtration Rate 75 BUN/Creatinine Ratio 19 Glucose Level 339 H 70-105 MG/DL Calcium Level 9.8 8.5-10.1 MG/DL Corrected Calcium 9.5 8.5-10.1 MG/DL Total Bilirubin 0.3 0.1-1.0 MG/DL Aspartate Amino Transf (AST/SGOT) 39 H 5-34 U/L Alanine Aminotransferase (ALT/SGPT) 50 0-55 U/L Alkaline Phosphatase 75 40-136 U/L Total Protein 7.8 6.4-8.2 GM/DL Albumin 4.4 3.2-4.5 GM/DL Lipase 46 8-78 U/L Urine Color YELLOW Urine Clarity CLEAR Urine pH 5.5 5-9 Urine Specific Neche >=1.030 1.016-1.022 Urine Protein TRACE H NEGATIVE Urine Glucose (UA) 3+ H NEGATIVE Urine Ketones TRACE H NEGATIVE Urine Nitrite NEGATIVE NEGATIVE Urine Bilirubin NEGATIVE NEGATIVE Urine Urobilinogen 0.2 < = 1.0 MG/DL Urine Leukocyte Esterase NEGATIVE NEGATIVE Urine RBC (Auto) NEGATIVE NEGATIVE Urine RBC NONE /HPF Urine WBC 2-5 /HPF Urine Squamous Epithelial Cells 10-25 H /HPF Urine Crystals NONE /LPF Urine Bacteria TRACE /HPF Urine Casts NONE /LPF Urine Mucus NEGATIVE /LPF Urine Culture Indicated NO (IZABELA RENDON MD) Vital Signs/I&O 04/26/23 04/26/23 10:45 12:52 Pulse 106 106 Resp 18 18 B/P (MAP) 125/85 (98) 125/85 Pulse Ox 97 97 (IZABELA RENDON MD) Blood Pressure Mean: 98 Departure Communication (PCP) Reviewed previous ER visits, H&P, lab testing. Differential diagnosis, delayed gastric emptying, gastritis, pancreatitis. Patient has been seen with in the past multiple visits with similar type pain. She reports upper abdominal pain with vomiting. She does have Zofran and Phenergan at home as well as hydrocodone Tylenol. She does do 10-hour feedings and 5-hour fluids. She does follow GI at . She had her feeding tube replaced this past Saturday. gastric tube in place. For gastric tenderness. CBC, CMP, lipase was ordered. Did obtain EKG. Was started on liter of fluid. CBC showed slight elevated white blood count at 13. Blood sugar 339. Normal anion gap. Does not appear in DKA. She is type II diabetic not on insulin. Glucose noted in urine without ev idence of infection. She did receive droperidol as she has received multiple antiemetics in the past without much improvement. She had improvement of her medication. Did obtain EKG before hand which did not show any evidence of QT prolongation. She states after the nausea medication her symptoms have improved significantly. She is requesting be discharged. Did obtain an abdominal x-ray which did not show any evidence of obstruction. Gastrojejunostomy tube in place. Discussed all results with patient. Outpatient follow-up with PCP in 2 to 3 days for evaluation. Continue with your feedings. She does have nausea medication at home. Chronic type pain. If any worsening symptoms return back to ED. (LYSSA MORALES) Impression Primary Impression: Abdominal pain Disposition: HOME, SELF-CARE Condition: Stable Departure-Patient Inst. Decision time for Depature: 12:46 (LYSSA MORALES) Referrals: CARMEN GIBBS MD (PCP/Family) Primary Care Physician Patient Instructions: Abdominal Pain, Adult ED Add. Discharge Instructions: Continue with your nausea medication and pain medication. Continue with your feedings. If any worsening symptoms return back to ED. All discharge instructions reviewed with patient and/or family. Voiced understanding. ATTENDING PHYSICIAN NOTE: I was physically present as attending physician in the emergency department during the care of this patient, but I was not directly involved in the decision making or delivery of care for this patient. (IZABELA RENDON MD) LYSSA MORALES Apr 26, 2023 11:44 IZABELA RENDON MD Apr 27, 2023 18:21
[2023-04-26] MEDS ORDERED: DroPERidol INJECTION 5 MG/2 ML (ED ONLY!) IV ONE (11:45)
[2023-04-26 12:35] LABS: BACTERIA,URINE TRACE /HPF; BILIRUBIN,URINE NEGATIVE (NEGATIVE); CLARITY,URINE CLEAR; COLOR,URINE YELLOW; GLUCOSE, URINE (UA) 3+ (NEGATIVE); KETONES,URINE TRACE (NEGATIVE); LEUKOCYTE ESTERASE ,URINE NEGATIVE (NEGATIVE); NITRITE,URINE NEGATIVE (NEGATIVE); PH,URINE 5.5 (5-9); PROTEIN,URINE TRACE (NEGATIVE)
--- NOTE | 2023-04-26 12:44 | Diagnostic Imaging Report ---
INDICATION: 38-year-old female, nausea, vomiting, abdominal pain starting yesterday. Post feeding tube replacement with history of pancreatitis. TECHNIQUE: Three radiograph of the abdomen 12:05 p.m. CORRELATION STUDY: 07/30/2022. FINDINGS: There appears to be presence of a gastrojejunal feeding tube, change from prior CT imaging. Tip projecting just below the level of the iliac crest, likely in the jejunum. The bowel gas pattern has a generally unobstructed appearance. There is [id number] stool retention. Scattered surgical clips are present. IMPRESSION: 1. Gastrojejunostomy feeding tube. Nonobstructive-appearing bowel gas pattern with [id number] stool retention. Dictated by: Dictated on workstation # [id number]
[2023-04-26 12:52] VITALS: BP 125/85
== END 2023-04-26 12:52 | disposition home or self-care (01) ==
LOC: EDUNIT# 10:28 → ER 10:30
DX: R10.13 Epigastric pain (principal); R11.2 Nausea with vomiting, unspecified; E66.9 Obesity, unspecified; Z90.49 Acquired absence of other specified parts of digestive tract; Z68.42 Body mass index [BMI] 45.0-49.9, adult
CPT/HCPCS: 36415; 74018; 80053; 81000; 83690; 85025; 93005; 96374

== ENCOUNTER 2023-05-14 12:23 | Emergency (ER) | payer MEDICARE, MEDICAID ==
[~2023-05-14] VITALS: Ht 160 cm; Wt 117.9 kg
--- NOTE | 2023-05-14 12:53 | ED Abdominal Pain ---
General Chief Complaint: Abdominal/GI Problems Stated Complaint: FEEDING TUBE PAIN Nursing Triage Note: PT AMB TO FT1 WITH COMPLAINT OF FEEDING TUBE PAIN. Source of Information: Patient Exam Limitations: No Limitations (LYSSA MORALES) History of Present Illness Date Seen by Provider: May 14, 2023 Time Seen by Provider: 12:50 Initial Comments Patient is a 38-year-old female with a history of a gastric tube states she is having pain to her feeding tube. She reports pain since the feeding tube was placed however she started having increasing pain this past Saturday. Pain is described as sharp and intermittent. She states she has been using her feeding tube daily. She reports 10-hour continuous feeding and 5-hour water feeding. She states she does not have pain every time she eats but typically has pain afterwards. She reports nausea without vomiting. Normal bowel movements. She states she contacted her GI specialist and primary care physician who recommended come to the ED. She refused anything for pain. She denies of any purulent drainage from the tube site. She has had some bloody drainage in the past but none currently. She denies fever, chills, pain with urination frequent urination, back pain. (LYSSA MORALES) Allergies and Home Medications Allergies Coded Allergies: morphine (Unverified Allergy, Mild, 11/17/22) meperidine (Verified Allergy, Unknown, 01/24/22) penicillin G (Verified Allergy, Unknown, 01/24/22) prochlorperazine (Verified Allergy, Unknown, 01/24/22) trimethobenzamide (Unverified Allergy, Unknown, 01/24/22) vancomycin (Verified Adverse Reaction, Intermediate, severe itching, 01/24/22) fentanyl (Verified Adverse Reaction, Unknown, HALLUCINATIONS, 02/27/22) Patient Home Medication List Home Medication List Reviewed: Yes (LYSSA MORALES) Acetaminophen (Tylenol Extra Strength) 500 Mg Tablet, 1,000 MG PO Q8H PRN for PAIN-MILD (1-4), (Reported) Entered as Reported by: EMILIO SHEPPARD on 10/26/19 0812 Albuterol Sulfate (Ventolin Hfa) 90 Mcg Hfa.aer.ad, 2 PUFF INH Q6H PRN for SHORTNESS OF BREATH, (Reported) Entered as Reported by: CASSANDRA CHOPRA on 02/15/22 1215 Albuterol Sulfate (Albuterol Sulfate) 2.5 Mg/3 Ml (0.083 %) Vial.neb, 3 ML PO Q8H PRN for SHORTNESS OF BREATH, (Reported) Entered as Reported by: CASSANDRA CHOPRA on 02/15/22 1215 Amitriptyline HCl (Amitriptyline HCl) 10 Mg Tablet, 10 MG PO HS Prescribed by: CARMEN GIBBS on 03/01/22 112 Atorvastatin Calcium (Atorvastatin Calcium) 40 Mg Tablet, 40 MG PO HS, (Reported) Entered as Reported by: CASSANDRA CHOPRA on 02/15/22 121 Cephalexin (Cephalexin) 500 Mg Tablet, 500 MG PO BID Prescribed by: ULI GARNER on 12/28/222055 Cyanocobalamin (Cyanocobalamin Injection) 1,000 Mcg/Ml Inj, 1,000 MCG IM MONTH LY, (Reported) Entered as Reported by: GRIFFIN ORTEGA on 07/24/21 114 Diphenhydramine HCl (Benadryl) 25 Mg Capsule, 50 MG PO HS, (Reported) Entered as Reported by: EMILIO SHEPPARD on 10/26/19 08 Glycerin (Glycerin) Adult Supp.rect, 1 EACH RC DAILY PRN for CONSTIPATION Prescribed by: IZABELA MAC on 07/31/22 023 Hydrocodone/Acetaminophen (Hydrocodone-Acetamin 5-325 mg) 5 Mg-325 Mg Tablet, 1 TAB PO Q6H PRN for PAIN-MODERATE (5-7), (Reported) Entered as Reported by: CASSANDRA CHOPRA on 02/15/22 121 Metoclopramide HCl (Reglan) 5 Mg Tablet, 5 MG PO Q6H PRN for NAUSEA/VOMITING Prescribed by: IZABELA MAC on 07/31/22 0238 Ondansetron (Ondansetron Odt) 8 Mg Tab.rapdis, 8 MG PO Q8H PRN for NAUSEA/VOMITING-1ST LINE, (Reported) Entered as Reported by: EMILIO SHEPPARD on 10/26/19 0812 Pantoprazole Sodium (Pantoprazole Sodium) 40 Mg Tablet.dr, 40 MG PO DAILY Prescribed by: CARMEN GIBBS on 03/01/22 1124 Promethazine HCl (Promethazine Tablet) 25 Mg Tablet, 25 MG PO Q6H PRN for NAUSEA/VOMITING-2ND LINE, (Reported) Entered as Reported by: LEX HOSKINS on 12/07/20 0916 Ropinirole HCl (Ropinirole HCl) 4 Mg Tablet, 4 MG PO HS, (Reported) Entered as Reported by: LEX HOSKINS on 06/28/17 1010 Sitagliptin Phos/Metformin HCl (Janumet Xr 50-1,000 mg Tablet) 50 Mg-1,000 Mg Tbmp.24hr, 2 TAB PO HS, (Reported) Entered as Reported by: LEX HOSKINS on 12/07/20 0916 Sulfamethoxazole/Trimethoprim (Bactrim Ds Tablet) 1 Each Tablet, 1 EACH PO BID Prescribed by: Karen Garvey on 10/28/22 2319 Sulfamethoxazole/Trimethoprim (Bactrim Ds Tablet) 800 Mg-160 Mg Tablet, 1 EACH PO BID Prescribed by: ULI GRANER on 02/05/23 2210 Review of Systems Review of Systems Constitutional: No chills, No diaphoresis, No malaise, No weakness EENTM: No Double Vision, No Eye Pain Respiratory: Denies Cough, Denies Orthopnea Cardiovascular: Denies Chest Pain Gastrointestinal: Abdominal Pain; Denies Diarrhea; Nausea; Denies Vomiting Genitourinary: Denies Burning Musculoskeletal: No joint swelling, No muscle pain, No muscle stiffness Skin: No change in color, No change in hair/nails Psychiatric/Neurological: Denies Anxiety, Denies Depressed, Denies Headache, Denies Numbness, Denies Paresthesia Hematologic/Lymphatic: Denies Anemia (LYSSA MORALES) All Other Systems Reviewed Negative Unless Noted: Yes (LYSSA MORALES) Past Yiiaoji-Ulrbqv-Wtgsnw Hx Patient Social History Tobacco Use?: No Use of E-Cig and/or Vaping dev: No Substance use?: No Alcohol Use?: No Pt feels they are or have been: No (LYSSA MORALES) Immunizations Up To Date Tetanus Booster (TDap): Less than 5yrs PED Vaccines UTD: No First/Initial COVID19 Vaccinat: x2 Second COVID19 Vaccination Alvaro: x2 Third COVID19 Vaccination Date: x2 (LYSSA MORALES) Seasonal Allergies Seasonal Allergies: No (LYSSA MORALES) Past Medical History Surgery/Hospitalization HX: LEFT NEPHRECTOMY, APPENDECTOMY, CHOLECYSTECTOMY, HYSTERECTOMY, HERNIA, T/A PANCREATITIS, ASTHMA, HEADACHE, GERD, LIVER DISEASE, CH. 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 Sexually Transmitted Disease: No HIV/AIDS: No Genitourinary: Yes (S/P LEFT NEPHRECTOMY) UTI-Chronic Gastrointestinal: Yes (CHRONIC ABD PAIN/N/V./D) Abdominal Hernia, Gastroesophageal Reflux, Liver Disease/Jaundice, Obstructive Bowel, Pancreatitis, Chronic Diarrhea, Polyps Musculoskeletal: Yes (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) Chronic Back Pain Endocrine: Yes (OBESITY) Diabetes, Non-Insulin dep HEENT: No Loss of Vision: Denies Hearing Impairment: Denies Cancer: Yes Kidney Did You Recieve Any Treatments: Yes What Type of Treatment Did You: Surgical Intervention Psychosocial: Yes Anxiety, Depression Integumentary: No Herpes Blood Disorders: No Adverse Reaction/Blood Tranf: No (N/A) (LYSSA MORALES) Family Medical History Cardiovascular disease 19 FATHER Completed stroke 19 FATHER Diabetes mellitus 19 FATHER Hypercholesterolemia 19 FATHER 19 MOTHER Hypertension 19 FATHER 19 MOTHER Neoplasm 19 MOTHER Psychosocial problem 19 FATHER 19 MOTHER No Pertinent Family Hx, Cancer, Diabetes, Hypertension PSH: -RIGHT KNEE SCOPE X 5 -LEFT KNEE SCOPE X 2 -TONSILLECTOMY / ADENOIDECTOMY -APPENDECTOMY -CHOLECYSTECTOMY -NASAL FRACTURE REPAIR -COCCYX REMOVAL -LEFT NEPHRECTOMY FOR MALIGNANCY -LEFT MID ABDOMEN INCISIONAL HERNIA REPAIR -DRAINAGE OF ABDOMINAL WALL ABSCESS -MULTIPLE EGD'S AND COLONOSCOPIES-- LAST ONE HERE 10/2019. HAD ONE 07/2022 AT -HYSTERECTOMY / BILATERAL SALPINGO-OOPHORECTOMY 2007 -06/23/20--RIGHT CHEST WALL/SHOULDER INJECTION FOR THORACIC OUTLET SYNDROME--DONE IN -PORT REMOVED FROM LEFT CHEST 07/24/21 FOR NON-FUNCTIONING PORT-BY DR. MARROQUIN (LYSSA MORALES) Physical Exam Vital Signs Vital Signs - First Documented 05/14/23 12:33 Temp 35.9 Pulse 108 Resp 16 B/P (MAP) 128/82 (97) Pulse Ox 96 O2 Delivery Room Air (IZABELA RENDON MD) Vital Signs Capillary Refill : Less Than 3 Seconds (LYSSA MORALES) Height/Weight/BMI Height: 5'3.00" Weight: 246lbs. 0oz. 111.649263mf; 46.00 BMI Method:Stated General Appearance: WD/WN, no apparent distress HEENT: PERRL/EOMI, normal ENT inspection, TMs normal, pharynx normal Neck: non-tender, full range of motion, supple Respiratory: chest non-tender, lungs clear, normal breath sounds, no respiratory distress, no accessory muscle use Cardiovascular: regular rate, rhythm, no edema, no gallop, no JVD Gastrointestinal: normal bowel sounds, soft, no organomegaly, tenderness (Tenderness around the feeding tube left upper quadrant. No purulent drainage. No swelling or redness. 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 She states she does have some pain with feedings but typically worse after. Nausea without vomiting. Normal bowel movements. She does 10-hour continuous feedings and 5-hour fluids. She states she had the tube replaced at 2 weeks ago. She states she has a gastrojejunostomy feeding tube. She states she was told not to put any more contrast through the tube as this may result in a bowel injury. She is concern for may be having obstructio n. On exam there is no redness or swelling around the tube. No active drainage. No evidence of suggesting cellulitis. Very minimal tenderness around the tube. She has been seen here in the past with multiple visits for feeding tube pain. She does eat some as well. Obtained a KUB which showed normal gas pattern. No evidence obstruction. Tube appears to be in place. She refused any lab work. She does not want anything for pain. She states she feels comfortable going home at this time. She will continue with her feedings. She states she will follow-up with her surgeon. Continue with your pain medication as needed. If any worsening symptoms such as pain, vomiting to return back to ED. (LYSSA MORALES) Impression Primary Impression: Abdominal pain Disposition: 01 HOME, SELF-CARE Condition: Stable Departure-Patient Inst. Decision time for Depature: 15:11 (LYSSA MORALES) Referrals: CARMEN GIBBS MD (PCP/Family) Primary Care Physician Patient Instructions: Abdominal Pain, Adult ED Add. Discharge Instructions: Follow-up with your GI specialist for further evaluation. If any worsening symptoms return back to ED. All discharge instructions reviewed with patient and/or family. Voiced understanding. ATTENDING PHYSICIAN NOTE: I was physically present as attending physician in the emergency department during the care of this patient, but I was not directly involved in the decision making or delivery of care for this patient. (IZABELA RENDON MD) LYSSA MORALES May 14, 2023 12:53 IZABELA RENDON MD May 15, 2023 06:08
[2023-05-14] MEDS ORDERED: DIATRIZOATE MEGLUM/SODIUM 37% 120 ML (GASTROGRAFIN) PO ONE ×2 (13:15)
--- NOTE | 2023-05-14 14:59 | Diagnostic Imaging Report ---
EXAMINATION: Abdomen, one view. HISTORY: Upper abdominal pain. COMPARISON: 04/26/2023. FINDINGS: Feeding tube projects over the abdomen. There are surgical clips in the abdomen. No dilated bowel or free air. IMPRESSION: 1. Normal bowel gas pattern. Dictated by: Dictated on workstation # [id number]
[2023-05-14 15:26] VITALS: BP 128/82
== END 2023-05-14 15:26 | disposition home or self-care (01) ==
LOC: EDUNIT# 12:23 → ER 12:24
DX: T85.848A Pain due to other internal prosthetic devices, implants and grafts, initial encounter (principal); R10.12 Left upper quadrant pain; R11.0 Nausea; E66.9 Obesity, unspecified; Z68.42 Body mass index [BMI] 45.0-49.9, adult; Z87.19 Personal history of other diseases of the digestive system; Z90.49 Acquired absence of other specified parts of digestive tract; Y73.8 Miscellaneous gastroenterology and urology devices associated with adverse incidents, not elsewhere classified
CPT/HCPCS: 74018